=== PATIENT | male | born 1965 | race American Indian/Alaskan Native ===

== ENCOUNTER 2017-01-11 16:31 | Emergency (ER) | payer MEDICARE, OTHER ==
[~2017-01-11] VITALS: Ht 170.2 cm; Wt 77.1 kg
[~2017-01-11 16:31] MED LIST: ADULT LOW DOSE81 MG PO; ALBUTEROL2.5 MG/3 M IH; ALLEGRA180 MG PO; ALLOPURINOL100 MG PO; ALPRAZOLAM0.5 MG PO; AMLODIPINE BESY10 MG PO; AZITHROMYCIN250 MG PO; BENTYL20 MG PO; CALCIUM ACETAT667 M1 NG; CARVEDILOL3.125 MG PO; CEPHALEXIN500 MG PO; CITALOPRAM HBR20 MG PO; COREG3.125 MG PO; DICLOFENAC SOD2.5 ML OPTH; DOXYCYCLINE HY100 M3 PO; DOXYCYCLINE HY100 MG PO; DUONEB 0.5 MG-33 ML INH; FLEXERIL10 MG PO; FUROSEMIDE20 MG PO; GENTAMICIN SULFA5 ML OD; GUAIFENESIN-CO118 ML PO; HYDROCODON-ACE1 EA10 PO; IPRAT-ALBUT 0.5-3 ML INH; LASIX20 MG PO; LEVOFLOXACIN250 MG PO; LEVOTHYROXINE75 MCG PO; MEDROL4 M1 PO; NEPHRO-VITE RX1 TAB PO; NORCO 10-325 T1 EACH PO; NORCO 5-325 TA1 EACH PO; NORVASC10 MG PO; OMEPRAZOLE40 MG PO; ONDANSETRON ODT8 MG PO; OXYCODONE HCL5 MG PO; PRED FORTE1 ML OPTH; PREDNISONE20 MG PO; PRILOSEC20 MG PO; RENVELA800 MG PO; SODIUM BICARBO650 MG PO; TRIAMCINOLONE A15 G3 TOP; TUMS200 MG PO; VENTOLIN HFA18 GM INH; VITAMIN D32000 UNI1 PO; ZITHROMAX250 MG PO; ZOFRAN4 MG PO
[2017-01-11] MEDS ORDERED: MONTELUKAST SOD10 MG PO (16:40)
[2017-01-11] MEDS ORDERED: PRILOSEC OTC20 MG PO (16:41)
[2017-01-11] MEDS ORDERED: CELEXA20 MG PO (16:41)
[2017-01-11] MEDS ORDERED: RENVELA800 MG PO (16:42)
[2017-01-11] MEDS ORDERED: SODIUM BICARBO650 MG PO (16:42)
[2017-01-11] MEDS ORDERED: CHOLECALCIFEROL1 GM MISC (16:43)
--- NOTE | 2017-01-11 20:31 | EKG ---
[facility] [address] [facility] [place] [id number] Signed Normal sinus rhythm Prolonged QT Abnormal ECG Confirmed by ELLE MENDEZ MD ([id number]) on 01/11/2017 8:31:46 PM Electronically Signed By: ELLE MENDEZ MD 01/11/172030 PATIENT NAME: CAROL STANTON Electrocardiogram DATE OF : 61 PHYSICIAN: ELLE MENDEZ MD REPORT #: [id number] REPORT IS CONFIDENTIAL AND NOT TO BE RELEASED WITHOUT AUTHORIZATION
== END 2017-01-11 19:37 | disposition home or self-care (01) ==
LOC: ED 16:31
DX: R07.9 Chest pain, unspecified (principal); I12.9 Hypertensive chronic kidney disease with stage 1 through stage 4 chronic kidney disease, or unspecified chronic kidney disease; E11.22 Type 2 diabetes mellitus with diabetic chronic kidney disease; N18.9 Chronic kidney disease, unspecified; I25.10 Atherosclerotic heart disease of native coronary artery without angina pectoris; J45.909 Unspecified asthma, uncomplicated; E03.9 Hypothyroidism, unspecified; K21.9 Gastro-esophageal reflux disease without esophagitis; F17.200 Nicotine dependence, unspecified, uncomplicated; Z88.8 Allergy status to other drugs, medicaments and biological substances; Z88.1 Allergy status to other antibiotic agents; Z88.0 Allergy status to penicillin; Z79.899 Other long term (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
CPT/HCPCS: 71020; 80053; 84484; 85025; 85610; 85730; 93005; 93010; 99284

== ENCOUNTER 2017-02-11 19:13 | Emergency (ER) | payer MEDICARE, OTHER ==
[~2017-02-11] VITALS: Ht 170.2 cm; Wt 78.9 kg
[~2017-02-11 19:13] MED LIST changes: +CELEXA20 MG PO; +CHOLECALCIFEROL1 GM MISC; +MONTELUKAST SOD10 MG PO; +PRILOSEC OTC20 MG PO
== END 2017-02-11 20:47 | disposition home or self-care (01) ==
LOC: ED 19:13
DX: R21 Rash and other nonspecific skin eruption (principal); I12.0 Hypertensive chronic kidney disease with stage 5 chronic kidney disease or end stage renal disease; E11.22 Type 2 diabetes mellitus with diabetic chronic kidney disease; N18.6 End stage renal disease; I25.10 Atherosclerotic heart disease of native coronary artery without angina pectoris; J45.909 Unspecified asthma, uncomplicated; E03.9 Hypothyroidism, unspecified; K21.9 Gastro-esophageal reflux disease without esophagitis; Z99.2 Dependence on renal dialysis; Z87.891 Personal history of nicotine dependence; Z88.0 Allergy status to penicillin; Z88.8 Allergy status to other drugs, medicaments and biological substances; Z88.1 Allergy status to other antibiotic agents; Z79.899 Other long term (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
CPT/HCPCS: 99282

== ENCOUNTER 2017-02-20 20:49 | Emergency (ER) | payer MEDICARE, OTHER ==
[~2017-02-20] VITALS: Ht 170.2 cm; Wt 80.3 kg
== END 2017-02-20 22:26 | disposition home or self-care (01) ==
LOC: ED 20:49
DX: S40.011A Contusion of right shoulder, initial encounter (principal); I12.0 Hypertensive chronic kidney disease with stage 5 chronic kidney disease or end stage renal disease; N18.6 End stage renal disease; I25.10 Atherosclerotic heart disease of native coronary artery without angina pectoris; J45.909 Unspecified asthma, uncomplicated; E03.9 Hypothyroidism, unspecified; K21.9 Gastro-esophageal reflux disease without esophagitis; E11.22 Type 2 diabetes mellitus with diabetic chronic kidney disease; Z99.2 Dependence on renal dialysis; Z87.891 Personal history of nicotine dependence; Z88.0 Allergy status to penicillin; Z88.8 Allergy status to other drugs, medicaments and biological substances; Z88.1 Allergy status to other antibiotic agents; Z79.899 Other long term (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; V09.9XXA Pedestrian injured in unspecified transport accident, initial encounter
CPT/HCPCS: 73060; 99283

== ENCOUNTER 2017-02-21 04:43 | Emergency (ER) | payer MEDICARE, OTHER ==
[~2017-02-21] VITALS: Ht 170.2 cm; Wt 80.3 kg
--- NOTE | 2017-02-21 17:17 | EKG ---
[facility] [address] [facility] [place] [address] Signed Normal sinus rhythm Low voltage QRS Borderline ECG When compared with ECG of 11-JAN-2017 16:36, No significant change was found Confirmed by ELLE MENDEZ MD ([id number]) on 02/21/2017 5:16:50 PM Electronically Signed By: ELLE MENDEZ MD 02/21/17 1717 PATIENT NAME: CAROL STANTON Electrocardiogram DATE OF : 61 PHYSICIAN: ELLE MENDEZ MD REPORT #: [id number] REPORT IS CONFIDENTIAL AND NOT TO BE RELEASED WITHOUT AUTHORIZATION
== END 2017-02-21 08:30 | disposition short-term general hospital (02) ==
LOC: ED 04:43
DX: I87.1 Compression of vein (principal); E11.22 Type 2 diabetes mellitus with diabetic chronic kidney disease; I12.0 Hypertensive chronic kidney disease with stage 5 chronic kidney disease or end stage renal disease; N18.6 End stage renal disease; J45.909 Unspecified asthma, uncomplicated; E03.9 Hypothyroidism, unspecified; K21.9 Gastro-esophageal reflux disease without esophagitis; Z87.891 Personal history of nicotine dependence; Z88.0 Allergy status to penicillin; Z88.1 Allergy status to other antibiotic agents; Z88.8 Allergy status to other drugs, medicaments and biological substances; Z79.899 Other long term (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; Z79.52 Long term (current) use of systemic steroids
CPT/HCPCS: 31500; 36600; 70490; 71010; 80053; 82803; 85025; 85379; 85610; 85730; 93005; 93010; 94002; 96372; 96374; 96375; 99285; J1200; J1644; J2250; J2270; J2704

== ENCOUNTER 2017-04-26 15:18 | Emergency (ER) | payer MEDICARE, OTHER ==
[~2017-04-26] VITALS: Ht 170.2 cm; Wt 78.9 kg
[2017-04-26] MEDS ORDERED: CLEOCIN HCL300 MG PO (15:59)
[2017-04-26] MEDS ORDERED: NORCO 5-325 TA1 EACH PO (15:59)
== END 2017-04-26 17:02 | disposition home or self-care (01) ==
LOC: ED 15:18
DX: K04.7 Periapical abscess without sinus (principal); I12.0 Hypertensive chronic kidney disease with stage 5 chronic kidney disease or end stage renal disease; E11.22 Type 2 diabetes mellitus with diabetic chronic kidney disease; N18.6 End stage renal disease; Z99.2 Dependence on renal dialysis; K21.9 Gastro-esophageal reflux disease without esophagitis; J45.909 Unspecified asthma, uncomplicated; I25.10 Atherosclerotic heart disease of native coronary artery without angina pectoris; E03.9 Hypothyroidism, unspecified; Z88.0 Allergy status to penicillin; Z88.8 Allergy status to other drugs, medicaments and biological substances; Z79.899 Other long term (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
CPT/HCPCS: 96365; 96375; 99283; J1170

== ENCOUNTER 2017-08-30 19:00 | Emergency (ER) | payer MEDICARE, OTHER ==
[~2017-08-30] VITALS: Ht 170.2 cm; Wt 78.9 kg
[~2017-08-30 19:00] MED LIST changes: +CLEOCIN HCL300 MG PO
== END 2017-08-30 23:50 | disposition home or self-care (01) ==
LOC: ED 19:00
DX: H16.001 Unspecified corneal ulcer, right eye (principal); S05.01XD Injury of conjunctiva and corneal abrasion without foreign body, right eye, subsequent encounter; E11.9 Type 2 diabetes mellitus without complications; I12.0 Hypertensive chronic kidney disease with stage 5 chronic kidney disease or end stage renal disease; N18.6 End stage renal disease; E03.9 Hypothyroidism, unspecified; I25.10 Atherosclerotic heart disease of native coronary artery without angina pectoris; Z88.8 Allergy status to other drugs, medicaments and biological substances; Z88.0 Allergy status to penicillin; Z88.1 Allergy status to other antibiotic agents; Z79.899 Other long term (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; Z99.2 Dependence on renal dialysis; X58.XXXD Exposure to other specified factors, subsequent encounter
CPT/HCPCS: 99282

== ENCOUNTER 2017-10-06 23:36 | Emergency (ER) | payer MEDICARE, OTHER ==
[~2017-10-06] VITALS: Ht 170.2 cm; Wt 78.9 kg
--- OUTSIDE RECORDS SUMMARY | ~2017-10-06 | XMS | Clinical Summary ---
Demographics + + + | Address | [address] | | | [place] [address] | + + + | Home Phone | | + + + | Preferred Language | Unknown | + + + | Marital Status | Unknown | + + + | Anglican Affiliation | Unknown | + + + | Race | Unknown | + + + | Ethnic Group | Unknown | + + + Author + + + | Author | [facility] | | | and [place] | + + + | Organization | and [facility] | | | and [place] | + + + | Address | Unknown | + + + | Phone | Unavailable | + + + Care Team Providers + +------+ + | Care Regrinder Operator Name | Role | Phone | + [...] + + | Penicillins | | | 06/06/20 | | | | | | 10 [...] | 2 puffs inhaled | | | / | | Activ | | HFA) 90 [...] Monitoring Suppl | physician | | | 20 | | e | | (CONTOUR BLOOD [...] Apply a small amount | | | 09/ | | Activ | | ointment | [...] mouth twice a day | | | 10/11 | | e | | ol (ADVAIR [...] | daily for gout. | | | 20 | | e | | tablet | [...] | tablet | Daily. | | | 10/11 | | e | | | | [...] One tablet by mouth | | | 09/1 | [...] + + +-------+---------+------+------+-------+ | metformin | Take 2-/2 tablets | | | 02/22 | | Activ | | (GLUCOPHAGE) 1000 MG | by mouth every | | | 10/11 | | e | | tablet | evening with food or | | | 12 | | | | | milk for diabetes | | | | | | + + +-------+---------+------+------+-------+ | TechLite Lancets | Use as directed by | | | 02/22 | | Activ | | MISC | physician | | | 10/11 | | e | | | | [...] + + + + | Overview: JAMIL [id number] Decision | + + + +---+ | [...] | + + + + + | Hepatitis C | | | | | Screening | 3 | | | + + + + + | Diabetic Eye Exam | | | | | (Bi-Annually) | 1 | | | + + + + + | Diabetic Foot Exam | | | | | | 1 | | | + + + + + | Hemoglobin A1c Q3 | | | | | Months | 1 | | | + + + + + | Vaccine: | | | | | Dtap/Tdap/Td (1 - | 2 | | | | Tdap) | | | | + + + + + | Vaccine: | | | | | Pneumococcal 19-64 | 2 | | | | (PPSV23 only) Medium | | | | | Risk (1 of 1 - | | | | | PPSV23) | | | | + + + + + | Microalbumin | | | | | Screening | 5 | | | + + + + + | Vaccine: Influenza | | | | | (Season Ended) | 8 | | | + + + + + | COLON CANCER | | 07/03/2010 | | | SCREENING | 1 | | | | (COLONOSCOPY EVERY | | | | | 10 YEARS 50-75) | | | | + + + + + Results Not on filefrom Last 3 Months
--- OUTSIDE RECORDS SUMMARY | ~2017-10-06 | XMS | Clinical Summary ---
Demographics + + + | Address | [address] | | | [place] [address] | + + + | Home Phone | | + + + | Preferred Language | Unknown | + + + | Marital Status | | + + + | Sabianist Affiliation | [id number] | + + + | Race | Unknown | + + + | Ethnic Group | Unknown | + + + Author + + + | Author | whodoyou | + + + | Organization | [facility] | + + + | Address [...] Team Providers + +------+ + | Care Continuous Improvement Analyst Name | Role | Phone | + [...] | | | | | | dialysis ([facility]) | | | | | | [...] | | | | | | dialysis ([facility]) | | | | | | [...] 2 (two) times | tablet | | 07/13 | | e | | | daily with meals. | | | 18 | | | + + + +---------+------+------+-------+ Active Problems + + + | Problem | Noted Date | + + + | 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HCC) | 07/22/2017 | + + + | Psoriasis-like skin disease | 02/19/2017 | + + + | Eczema of both upper extremities | 02/16/2017 | + + + | Chest pain, unspecified | 10/08/2016 | + + + | S/P pericardiocentesis | 09/12/2016 | + + + | Hyponatremia | 09/08/2016 | + + + | Polysubstance abuse | 04/28/2016 | + + + | Chronic steroid use | 04/28/2016 | + + + | Steroid-induced hyperglycemia [...] Date | + + + + | Hyperkalemia [...] 7 | + + + + | Gram-positive cocci bacteremia | 03/18/20 | | | | 14 | 7 [...] asthma with exacerbation (HCC) | 10/28/19 | | | | 14 [...] ready for discharge from the | | longterm facility next week. | + + + [...] | +--------+ + + + + | 10/05/ | Emergency | | Inocencio Burden | ESRD on hemodialysis | | 2017 | | | DO Onelia | ([facility]) (Primary Dx); | | | | | | Cellulitis of right | | | | | | upper extremity | +--------+ + + + + | 08/28/ | Documentati | | Jayy Christianson MD | Other (July | on Only | | | 2018-[facility] Provider | | | | | | [facility] Dialysis | | | | | | Note) | +--------+ + + + + | 07/29/ | Documentati | | Jayy Christianson MD | Other (June | | 2017 | on Only | | | 2018-[facility] Provider | | | | | | Rounding Dialysis | | | | | | Note) | +--------+ + + + + | 07/22/ | Hospital | | Huan Martínez, | MRSA infection | | 2018 - | Encounter | | DO Vaishnavi Edward, | (Primary Dx); | | | | | Albino Traylor, | Complication of AV | | 07/25/ | | | MD | dialysis fistula, | | 2017 | | | | initial encounter; | | | | | | End stage renal | | | | | | failure on dialysis | | | | | | ([facility]); Infection of | | | | | | arteriovenous | | | | | | fistula, subsequent | | | | | | encounter | +--------+ + + + + +---+ + | | Discharge | | | Summaries | | | - Evelia, | | | MD Albino | | | - | | | 07/25/2017 | | | 9:18 AM | | | PST | | | Formatting | | | of this | | | note may be | | | different | | | from the | | | original.[facility]: | | | Hospitalist | | | Discharge | | | SummaryDate | | | of | | | Admission: | | | | | | 07/22/2017Da | | | te of | | | Discharge: | | | 07/25/2017 | | | Discharge | | | Provider: | | | ALBINO T | | | DERAY, | | | MDTreatment | | | Team: | | | Consulting | | | Physician: | | | Jayy H | | | Akoum, | | | MDAdmitting | | | Provider: | | | Vaishnavi | | | Edward, | | | MDDischarge | | | Diagnoses: | | | | | | Principal | | | Problem: | | | AV fistula | | | infection | | | (HCC)Active | | | Problems: | | | Metabolic | | | acidosis | | | Hypothyroid | | | ism | | | Diabetes | | | mellitus | | | with ESRD | | | (end-stage | | | renal | | | disease) | | | HTN | | | (hypertensi | | | on) ESRD | | | (end stage | | | renal | | | disease) on | | | dialysis | | | Hyponatremi | | | a | | | AsthmaBRIEF | | | HISTORY OF | | | | | | PRESENTATIO | | | N/HOSPITAL | | | COURSE: | | | Enrique G | | | Tariq is a 52 | | | y.o. male | | | with DM2, | | | HTN, | | | hypothyroid | | | , asthma | | | and ESRD on | | | HD who | | | presented | | | with | | | possible | | | AVF site | | | infection. | | | He | | | remained | | | afebrile | | | and denied | | | and pain on | | | the site | | | however | | | during | | | cannulation | | | of his | | | AVF, the | | | nurse noted | | | pus coming | | | out. | | | Apparently | | | wound | | | culture | | | came back | | | heavy | | | growth MRSA | | | positive. | | | He was | | | started on | | | vanco dosed | | | per | | | dialysis. | | | [place] of the | | | area was | | | negative | | | for fluid | | | collection. | | | Dr. Meyer | | | was | | | consulted | | | and | | | suggested | | | to continue | | | | | | antibiotic. | | | No | | | surgical | | | interventio | | | n needed. | | | He had | | | metabolic | | | acidosis | | | which | | | improved | | | with HD. | | | He received | | | a total of | | | 3 doses of | | | vanco | | | during this | | | stay. He | | | was advised | | | to comply | | | with | | | outpatient | | | HD and | | | vanco | | | dosing. | | | Dr. Christianson | | | already | | | arranged | | | the vanco | | | orders. I | | | had to | | | increase | | | his coreg | | | to 6.25 BID | | | for better | | | BP | | | control. | | | He remained | | | stable and | | | improved. | | | The rest | | | of his | | | hospital | | | stay was | | | unremarkabl | | | e. | | | Prescriptio | | | ns Prior to | | | Admission | | | Medication | | | Sig | | | Dispense | | | Refill Last | | | Dose | | | | | | acetaminoph | | | en | | | (TYLENOL) | | | 325 MG | | | tablet Take | | | 650 mg by | | | mouth every | | | 6 (six) | | | hours as | | | needed. | | | Indications | | | : Pain | | | Past Week | | | at Unknown | | | time | | | albuterol | | | (PROVENTIL | | | HFA) 108 | | | (90 BASE) | | | MCG/ACT | | | inhaler | | | Inhale 2 | | | puffs into | | | the lungs | | | every 4 | | | (four) | | | hours as | | | needed for | | | Wheezing. | | | (Patient | | | taking | | | differently | | | : Inhale 2 | | | puffs into | | | the lungs | | | every 4 | | | (four) | | | hours as | | | needed for | | | Wheezing. | | | Took last | | | night) 1 | | | Inhaler 1 | | | Taking | | | | | | allopurinol | | | (ZYLOPRIM) | | | 100 MG | | | tablet Take | | | 100 mg by | | | mouth | | | daily. | | | Indications | | | : Primary | | | Gout | | | 02/14/2017 | | | at Unknown | | | time | | | | | | amLODIPine | | | (NORVASC) | | | 10 MG | | | tablet Take | | | 10 mg by | | | mouth | | | daily. | | | 02/14/2017 | | | at Unknown | | | time | | | b | | | complex-vit | | | haji | | | c-folic | | | acid | | | (NEPHRO-VIT | | | E) 0.8 MG | | | TABS tablet | | | Take 1 | | | tablet by | | | mouth | | | daily. 30 | | | tablet 11 | | | 02/15/2017 | | | at Unknown | | | time | | | | | | betamethaso | | | ne valerate | | | (VALISONE) | | | 0.1 % | | | cream Apply | | | topically | | | 2 (two) | | | times daily | | | for 7 | | | days. 30 g | | | 0 | | | | | | budesonide- | | | formoterol | | | (SYMBICORT) | | | 160-4.5 | | | MCG/ACT | | | inhaler | | | Inhale 2 | | | puffs into | | | the lungs 2 | | | (two) | | | times | | | daily. 2 | | | each 0 | | | | | | Cholecalcif | | | angelina 2000 | | | UNITS TABS | | | Take 1 | | | tablet by | | | mouth | | | daily. | | | 02/15/2017 | | | at Unknown | | | time | | | | | | fluticasone | | | -salmeterol | | | (ADVAIR | | | DISKUS) | | | 250-50 | | | MCG/DOSE | | | Inhale 1 | | | puff into | | | the lungs 2 | | | (two) | | | times | | | daily. 60 | | | each 0 | | | Unknown at | | | Unknown | | | time | | | | | | HYDROcodone | | | -acetaminop | | | hen (NORCO) | | | 5-325 MG | | | per tablet | | | | | | 10/07/2016 | | | at Unknown | | | time | | | | | | levothyroxi | | | ne | | | (SYNTHROID) | | | 75 MCG | | | tablet Take | | | 75 mcg by | | | mouth every | | | morning | | | before | | | breakfast. | | | Indications | | | : | | | Underactive | | | Thyroid | | | 02/15/2017 | | | at Unknown | | | time | | | | | | montelukast | | | | | | (SINGULAIR) | | | 10 MG | | | tablet Take | | | 1 tablet | | | by mouth | | | nightly. 30 | | | tablet 0 | | | Taking | | | | | | ondansetron | | | | | | (ZOFRAN-ODT | | | ) 8 MG | | | disintegrat | | | ing tablet | | | | | | 02/15/2017 | | | at Unknown | | | time | | | sevelamer | | | (RENVELA) | | | 800 MG | | | tablet take | | | 3 tablets | | | by mouth | | | three times | | | a day WITH | | | MEALS AND | | | 1 TABLET | | | WITH SNACKS | | | 300 tablet | | | 5 | | | 02/15/2017 | | | at Unknown | | | time | | | sodium | | | bicarbonate | | | 650 MG | | | tablet Take | | | 1,300 mg | | | by mouth 2 | | | (two) times | | | daily. | | | 02/15/2017 | | | at Unknown | | | time | | | DISCHARGE | | | EXAMVital | | | Signs:Vital | | | s: | | | 07/24/17 | | | 2219 | | | 07/24/17 | | | 2257 | | | 07/25/17 | | | 0536 | | | 07/25/17 | | | 0750 BP: | | | 158/87 | | | 150/68 | | | 137/73 BP | | | Location: | | | Left | | | forearm | | | Left | | | forearm | | | Left | | | forearm | | | Pulse: 86 | | | 81 80 Resp: | | | 18 18 19 | | | Temp: 98.3 | | | F (36.8 | | | C) 97.7 | | | F (36.5 | | | C) 97.8 | | | F (36.6 | | | C) | | | TempSrc: | | | Oral Oral | | | Oral SpO2: | | | 99% 100% | | | 99% Weight: | | | 79.6 kg | | | (175 lb 8 | | | oz) | | | Height: | | | Physical | | | ExamGeneral | | | | | | appearance: | | | alert, | | | appears | | | stated age | | | and | | | cooperative | | | . Fatigue | | | looking but | | | no | | | distress. | | | Interactive | | | .Head: | | | Normocephal | | | ic, without | | | obvious | | | abnormality | | | , | | | atraumaticN | | | gray: no | | | adenopathy, | | | no carotid | | | bruit, no | | | JVD, | | | supple, | | | symmetrical | | | , trachea | | | midline and | | | thyroid | | | not | | | enlarged, | | | symmetric, | | | no | | | tenderness/ | | | mass/nodule | | | sLungs: | | | clear to | | | auscultatio | | | n | | | bilaterally | | | Heart: | | | regular | | | rate and | | | rhythm, S1, | | | S2 normal, | | | no murmur, | | | click, rub | | | or | | | gallopAbdom | | | en: soft, | | | non-tender; | | | bowel | | | sounds | | | normal; no | | | masses, no | | | | | | organomegal | | | yMusculoske | | | letal: | | | There is no | | | redness, | | | warmth, or | | | swelling of | | | the | | | joints. | | | Limited | | | range of | | | motion | | | noted. | | | Motor | | | strength is | | | 5 out of 5 | | | all | | | extremities | | | | | | bilaterally | | | . Tone is | | | normal.Extr | | | emities: | | | extremities | | | normal, | | | atraumatic, | | | no | | | cyanosis or | | | | | | edemaPulses | | | : 2+ and | | | symmetricSk | | | in: Skin | | | color, | | | texture, | | | turgor | | | normal. | | | Firm lump | | | smaller in | | | size with | | | small dried | | | up | | | crusting on | | | the right | | | antecubital | | | which is | | | non tender. | | | Palpable | | | thrill | | | present.Lym | | | ph nodes: | | | Cervical, | | | supraclavic | | | ular, and | | | axillary | | | nodes | | | normal. DA | | | TA, | | | personally | | | reviewedRec | | | ent [facility] | | | | | | | | | 5 | | | | | | 0 | | | | | | 1 WBC 5.65 | | | 6.45 7.21 | | | HGB 13.1* | | | 12.7* 12.8* | | | HCT 39.1 | | | 37.0* 37.9* | | | PLT 151 | | | 184 198 | | | NEUTOPHILPC | | | T 55.56 | | | 66.67 73.75 | | | MONOPCT | | | 12.22 10.22 | | | 9.13 | | | Recent | | | [facility] | | | | | | 5 | | | 01/31/05369 | | | 0 | | | 50 | | | 1 | | | | | | 0 NA 136 | | | 136 130* | | | 129* K 3.9 | | | 3.8 3.8 3.9 | | | CL 98* 98* | | | 99 97* CO2 | | | 29 29 9* | | | 9* BUN 25 | | | 41* 96* 90* | | | CREATININE | | | 5.5* 7.4* | | | 12.7* 12* | | | PROT -- | | | -- -- | | | 7.5 BILITOT | | | -- -- | | | -- 0.6 | | | ALT -- | | | -- -- 56 | | | AST -- | | | -- -- | | | 48* | | | Phosphorus: | | | Lab | | | Results | | | Component | | | Value Date | | | PHOS 3.7 | | | 07/25/2017 | | | Recent | | | [facility] | | | | | | 0 | | | | | | 1 MG 2.4 | | | 3.1* | | | Radiology, | | | personally | | | reviewedUs | | | Upper | | | Extremity | | | Right Soft | | | TissueResul | | | t Date: | | | . | | | Mild edema | | | | | | surrounding | | | the | | | ectatic | | | fistula/gra | | | ft | | | Electronica | | | lly signed | | | by Giovany | | | S Nupur, | | | MD on | | | 07/22/2017 | | | 9:57 | | | PMPLAN-disc | | | harge | | | home.-follo | | | w | | | medications | | | as | | | outlined | | | below.-foll | | | ow up with | | | providers | | | as | | | indicated.D | | | isposition: | | | | | | HomeConditi | | | on: | | | StableCode | | | Status: | | | Full | | | CodeDischar | | | ge | | | Instruction | | | sCall MD | | | for: | | | Extreme | | | Fatigue | | | Call MD | | | for: | | | Severe | | | Uncontrolle | | | d Pain Call | | | MD for: | | | Redness, | | | Tenderness, | | | or Signs | | | of | | | Infection | | | (Pain, | | | Swelling, | | | Redness, | | | Odor or | | | Green/Yello | | | w Discharge | | | Around | | | Incision | | | Site) | | | Follow | | | up:Jayy H | | | Akoum, | | | [id number] | | | [address] | | | [place] | | | [place] | | | [place] | | | [phone] | | [phone] | | | ule an | | | appointment | | | as soon as | | | possible | | | for a visit | | | in 1 | | | weekpost | | | hospital | | | follow | | | [facility] | | | [place], | | | [id number] | | | [place] | | | d | | | [address] | | | n [place] | | | [phone] | | | [phone] | | | Medication | | | List | | | CHANGE how | | | you take | | | these | | | medications | | | albuterol | | | 108 (90 | | | Base) | | | MCG/ACT | | | inhalerQTY: | | | 1 | | | InhalerRefi | | | lls: | | | 1Commonly | | | known as: | | | PROVENTIL | | | HFAInhale 2 | | | puffs into | | | the lungs | | | every 4 | | | (four) | | | hours as | | | needed for | | | Wheezing.Wh | | | at changed: | | | | | | additional | | | instruction | | | s | | | carvedilol | | | 3.125 MG | | | tabletQTY: | | | 60 | | | tabletRefil | | | ls: | | | 0Commonly | | | known as: | | | COREGTake 2 | | | tablets by | | | mouth 2 | | | (two) times | | | daily with | | | meals.What | | | changed: | | | how much to | | | take | | | CONTINUE | | | taking | | | these | | | medications | | | | | | acetaminoph | | | en 325 MG | | | tabletRefil | | | ls: | | | 0Commonly | | | known as: | | | TYLENOL | | | allopurinol | | | 100 MG | | | tabletRefil | | | ls: | | | 0Commonly | | | known as: | | | ZYLOPRIM | | | amLODIPine | | | 10 MG | | | tabletRefil | | | ls: | | | 0Commonly | | | known as: | | | NORVASC b | | | complex-vit | | | haji | | | c-folic | | | acid 0.8 MG | | | Tabs | | | tabletQTY: | | | 30 | | | tabletRefil | | | ls: 11For | | | diagnoses: | | | ESRD (end | | | stage renal | | | disease) | | | on dialysis | | | (HCC)Take | | | 1 tablet by | | | mouth | | | daily. | | | betamethaso | | | ne valerate | | | 0.1 % | | | creamQTY: | | | 30 | | | gRefills: | | | 0Commonly | | | known as: | | | VALISONEApp | | | ly | | | topically 2 | | | (two) | | | times daily | | | for 7 | | | days. | | | budesonide- | | | formoterol | | | 160-4.5 | | | MCG/ACT | | | inhalerQTY: | | | 2 | | | eachRefills | | | : | | | 0Commonly | | | known as: | | | SYMBICORTIn | | | major 2 | | | puffs into | | | the lungs 2 | | | (two) | | | times | | | daily. | | | Cholecalcif | | | angelina 2000 | | | units | | | TabsRefills | | | : 0 | | | fluticasone | | | -salmeterol | | | 250-50 | | | MCG/DOSEQTY | | | : 60 | | | eachRefills | | | : | | | 0Commonly | | | known as: | | | ADVAIR | | | DISKUSInhal | | | e 1 puff | | | into the | | | lungs 2 | | | (two) times | | | daily. | | | HYDROcodone | | | -acetaminop | | | hen 5-325 | | | MG per | | | tabletRefil | | | ls: | | | 0Commonly | | | known as: | | | NORCO | | | levothyroxi | | | ne 75 MCG | | | tabletRefil | | | ls: | | | 0Commonly | | | known as: | | | SYNTHROID | | | montelukast | | | 10 MG | | | tabletQTY: | | | 30 | | | tabletRefil | | | ls: | | | 0Commonly | | | known as: | | | SINGULAIRTa | | | ke 1 tablet | | | by mouth | | | nightly. | | | ondansetron | | | 8 MG | | | disintegrat | | | ing | | | tabletRefil | | | ls: | | | 0Commonly | | | known as: | | | ZOFRAN-ODTN | | | otes to | | | patient: | | | Resume home | | | schedule | | | sevelamer | | | 800 MG | | | tabletQTY: | | | 300 | | | tabletRefil | | | ls: 5For | | | diagnoses: | | | ESRD (end | | | stage renal | | | disease) | | | on dialysis | | | | | | (HCC)Common | | | ly known | | | as: | | | RENVELAtake | | | 3 tablets | | | by mouth | | | three times | | | a day WITH | | | MEALS AND | | | 1 TABLET | | | WITH SNACKS | | | sodium | | | bicarbonate | | | 650 MG | | | tabletRefil | | | ls: 0 You | | | might also | | | be taking | | | other | | | medications | | | not listed | | | above. If | | | you have | | | questions | | | about any | | | of your | | | other | | | medications | | | , talk to | | | the person | | | who | | | prescribed | | | them or | | | your | | | Primary | | | Care | | | Provider. | | | Where to | | | Get Your | | | Medications | | | These | | | medications | | | [facility] | [address] - | | | [place], | | | [place] - [address] | [address], | | | [place] | | | [place] | | | [address] | | | Phone: | | | [phone] | | | 5 | | | carvedilol | | | 3.125 MG | | | tablet | | | Discharge | | | took 35 | | | minutes, to | | | include | | | final | | | examination | | | , | | | discussion | | | of | | | admission, | | | and | | | preparation | | | of | | | prescriptio | | | ns, | | | instruction | | | s for | | | on-going | | | care, | | | follow-up | | | and | | | documentati | | | on of | | | discharge | | | summary.Dic | | | tation and | | | transcripti | | | on or | | | software, | | | Dragon, | | | used which | | | may contain | | | error for | | | similar | | | sounding | | | words even | | | after | | | review. | | | Personal | | | communicati | | | on | | | requested | | | for any | | | clarificati | | | on. ALBINO | | | T DERAY, | | | MD | | | :18 AM | +---+ + from Last 3 Months Family History + + +------+ + | [...] + | Mother | | | from [place] | | | | (Age | | [...] + + + | Blood Pressure | 190/88 | 10/05/2017 6:10 PM PDT | + + + + | Pulse | 80 | 10/05/2017 6:10 PM PDT | + + + + | Temperature | 36.3 C (97.4 F) | 10/05/2017 6:10 PM PDT | + + + + | Respiratory Rate | 16 | 10/05/2017 6:10 PM PDT | + + + + | Oxygen Saturation | 99% | 10/05/2017 6:10 PM PDT | + + + + | Inhaled Oxygen | - | - | | Concentration | | | + + + + | Weight | 82.2 kg (181 lb 3.5 | 10/05/2017 12:42 PM PDT | | | oz) | | + + + + | Height | 170.2 cm (5' 7") | 07/22/2017 9:12 PM PST | + + + + | Body Mass Index | 28.38 | 10/05/2017 12:42 PM PDT | + + + + Plan [...] + + | Hemoglobin A1c | | 02/17/2017, 10/09/2016, | | | | 8 | 09/13/2016, Additional history | | | | | [...] Stent | Right: | | | | [id number] | | 40-09/11/2016Implanted: | | | | | | / | | 09/11/2016 by Jimenez Garnica, | | [employer] | | | | /[id number] | | PhD (Quantity not on | | vian | | | | 669 | | file) | | | | | | | + +-------+--------+ +--------+--------+--------+ | Zilver 14 X | Stent | Right: | | | | [id number] | | 60-09/11/2016Implanted: | | | | | | / | | 09/11/2016 by Jimenez Garnica, | | [employer] | | | | /[id number] | | PhD (Quantity not on | | vian | | | | 524 | | file) | | | | | | | + +-------+--------+ +--------+--------+--------+ | Hemodialysis Catheter 12x20 | | Left: | | | 10/05/ | [id number] | | Curved - Sn/AImplanted: Qty: | | Neck | | | 2013 | [id number] | | 1 on 07/07/2012 by Oskar Meyer | | | | | | /N/A | | Y, | | | | | | / | | | | | | | | 5X | + +-------+--------+ +--------+--------+--------+ | Catheter Hemodialysis Alpha | | Left: | | | 02/22/ | [id number] | | Pre [employer] Manager Std | | Neck | | | 2012 | 0 | | Hemosplit 14.5 24cm - | | | | | | /[id number] | | [id number]: Qty: 1 on | | | | | | 90 | | 07/11/2012 by Oskar Meyer MD | | | | | | /[id number] | | | | | | | | 631 | + +-------+--------+ +--------+--------+--------+ Procedures + +--------+ + + + | Procedure Name | Priori | Date/Time | Associated Diagnosis | Comments | | | ty | | | | + +--------+ + + + | HEMODIALYSIS | Today | 07/24/2017 | | Results for this | | INPATIENT | | 4:18 PM | | procedure are in the | | | | PST | | results section. | + +--------+ + + + from Last 3 Months Results upper extremity venous right (10/05/2017 2:52 PM) + + + | Specimen | Performing Laboratory | + + + | | [facility] [id number] [place] [address] | + + + + + | Impressions | + + | 1. No evidence of DVT. | | 3:00 PM | + + + + | Narrative | + + | ENRIQUE POTTER 1965 US UPPER EXTREMITY VENOUS DOPPLER RIGHT 10/05/2017 2:52 PM | | INDICATION: Arm pain COMPARISON: None TECHNIQUE: Right upper extremity venous | | duplex, grayscale, color-flow and spectral analysis FINDINGS: The internal jugular | | vein is patent. There is normal color flow of the internal jugular and subclavian veins. | | Normal augmentation is present along the proximal deep venous system. The cephalic vein | | is normally compressible. Mid basilic vein is normal. Examination is limited due to | | patient soft tissue hardness. | + + + + | Procedure Note | + + | Khalif Palm In - 10/05/2017 3:05 PM PDT ENRIQUE G [id number] UPPER EXTREMITY | | VENOUS DOPPLER RIGHT10/05/2017 2:52 PMINDICATION: Arm painCOMPARISON: NoneTECHNIQUE: | | Right upper extremity venous duplex, grayscale, color-flow and spectral | | analysisFINDINGS: The internal jugular vein is patent. There is normal color flow of the | | internal jugular and subclavian veins. Normal augmentation is present along the | | proximal deep venous system. The cephalic vein is normally compressible. Mid basilic | | vein is normal.Examination is limited due to patient soft tissue hardness.IMPRESSION:1. | | No evidence of DVT. | | | |TECHNIQUE: Right upper extremity venous duplex, grayscale, color-flow and spectral analysis | | | |FINDINGS: The internal jugular vein is patent. There is normal color flow of the internal j ugular and subclavian veins. Normal augmentation is present along the proximal deep venous s ystem. The cephalic vein is | |normally compressible. Mid basilic vein is normal. | | | |Examination is limited due to patient soft tissue hardness. | | | |IMPRESSION: | |1. No evidence of DVT. | | | | | + + Cardiac Panel (10/05/2017 2:02 PM) + + +------ + | Component | Value | Ref R chanelle | + + +------ + | WBC | 7.23 | 3.80 - 11.00 K/uL | + + +------ + | RBC | 3.92 (L) | 4.20 - 5.70 M/uL | + + +------ + | HGB | 11.1 (L) | 13.2 - 17.0 g/dL | + + +------ + | HCT | 34.5 (L) | 39.0 - 50.0 % | + + +------ + | MCV | 87.9 | 80.0 - 100.0 fl | + + +------ + | MCH | 28.3 | 27.0 - 34.0 pg | + + +------ + | MCHC | 32.2 | 32.0 - 35.5 g/dL | + + +------ + | RDW SD | 52.5 | 37 - 53 fl | + + +------ + | PLT | 245 | 150 - 400 K/uL | + + +------ + | MPV | 7.1 | fl | + + +------ + | DIFF TYPE | AUTOMATED | | + + +------ + | NEUTROPHILS | 72.19 | % | + + +------ + | LYMPHOCYTES | 7.35 | % | + + +------ + | MONOCYTES | 7.16 | % | + + +------ + | EOSINOPHILS | 12.79 | % | + + +------ + | BASOPHILS | 0.51 | % | + + +------ + | NEUTROPHILS ABS | 5.22 | 1.90 - 7.40 K/uL | + + +------ + | LYMPHOCYTES ABS | 0.53 (L) | 1.00 - 3.90 K/uL | + + +------ + | MONOCYTES ABS | 0.52 | 0.00 - 0.80 K/uL | + + +------ + | EOSINOPHILS ABS | 0.92 (H) | 0.00 - 0.50 K/uL | + + +------ + | BASOPHILS ABS | 0.04 | 0.00 - 0.10 K/uL | + + +------ + | SODIUM | 133 (L) | 135 - 145 mmol/L | + + +------ + | POTASSIUM | 4.8 | 3.5 - 4.9 mmol/L | + + +------ + | CHLORIDE | 97 (L) | 99 - 109 mmol/L | + + +------ + | CO2 | 19 (L) | 23 - 32 mmol/L | + + +------ + | ANION GAP AGAP | 22 (H) | 5 - 2 0 mmol/L | + + +------ + | GLUCOSE | 134 (H) | 65 - 99 mg/dL | + + +------ + | BUN | 71 (H) | 8 - 2 5 mg/dL | + + +------ + | CREATININE | 15 (H) | 0.70 - 1.30 mg/dL | + + +------ + | BUN/CREAT | 5 | | + + +------ + | CALCIUM | 7.5 (L) | 8.5 - 10.5 mg/dL | + + +------ + | TOTAL PROTEIN | 7.2 | 6.3 - 8.2 g/dL | + + +------ + | Albumin | 3.2 (L) | 3.6 - 5.0 g/dL | + + +------ + | GLOBULIN | 4.0 | 1.3 - 4.9 g/dL | + + +------ + | A/G | 0.8 (L) | 1.0 - 2.4 | + + +------ + | TBIL | 0.7 | 0.1 - 1.5 mg/dL | + + +------ + | ALK PHOS | 82 | 35 - 115 U/L | + + +------ + | AST | 22 | 10 - 45 U/L | + + +------ + | ALT | 30 | 10 - 65 U/L | + + +------ + | EGFR | 4 (L)Comment: GFR <60: CHRONIC KIDNEY | >60 m L/min/1.73m2 | | | DISEASE, IF FOUND OVER A 3 MONTH PERIOD.GFR | | | | <15: KIDNEY FAILURE.FOR AMERICANS, | | | | MULTIPLY THE CALCULATED GFR BY 1.210. | | | |FOR AMERICANS, MULTIPLY THE CALCULATED GFR BY 1.210. | | | | | | + + +------ + | CPK | 173 | 55 - 400 U/L | + + +------ + | INR | 1.0Comment: REFERENCE RANGE:0.9 - | | | | 1.2 NON-ANTICOAGULATED2.0 - 3.0 ALL | | | | OTHER THERAPEUTIC INDICATIONS2.5 - 3.5 | | | | MECHANICAL HEART VALVES, RECURRENT OR | | | | SYSTEMIC EMBOLISM | | | |2.5 - 3.5 MECHANICAL HEART VALVES, RECURRENT OR SYSTEMIC EMBOLISM | | | | | | + + +------ + | APTT | 24 | 23 - 32 seconds | + + +------ + | MMB | 8.1 (H) | 0.5 - 3.6 ng/mL | + + +------ + | CK-MB Index | 4.7Comment: CK INDEX | | | | INTERPRETATION: MMB | | | | ng/mL & Relative | | | | IndexNon-AMI < or = | | | | 5.0 NAGray | | | | Zone >5.0 < or | | | | = 4.0AMI | | | | >5.0 >4.0Testing | | | | performed at [facility] [place] [address];[place], [place] | | | | [address] | | | | | | + + +------ + + + + | Specimen | Performing Laboratory | + + + | | [facility] [address] [place] [address] | + + + Troponin I, Lab (10/05/2017 2:02 PM) + + + + | Component | Value | Ref Range | + + + + | TROPONIN I | <0.020Comment: 0.00 to 0.10 | 0.00 - 0.10 ng/mL | | | CONSISTENT WITH NORMAL POPULATION0.11 to | | | | 0.60 CONSISTENT WITH INCREASED RISK FOR | | | | ADVERSE OUTCOMES> 0.60 | | | | CONSISTENT WITH WHO CRITERIA FOR ACUTE AK | | | | Testing performed at [facility];[address] | | | | [facility] [address] | | | | | | | |Testing performed at [facility];[address] [place] [address];[place] [address] | | | | | | + + + + + + + | Specimen | Performing Laboratory | + + + | Blood | [facility] [address] [place] [address] | + + + ED INFORMATION EXCHANGE (10/05/2017 12:35 PM)Only the most recent of 2 results within the period is included. + + + | Specimen | Performing Laboratory | + + + | | ED INFORMATION EXCHANGE | + + + + + | Narrative | + + | [id number] [id number] This patient has registered at the [facility] Emergency Department For more information visit: | | [email or web address] Security | | Events No recent Security Events currently on file ED Care Guidelines There are | | currently no ED Care Guidelines in DECLAN for this patient. Please check your facility's | | medical records system. 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 Visit Count (12 mo.) Facility Visits Low Acuity [facility] | [facility] 4 0 [facility] 8 0 Total 12 0 Note: Visits indicate | | total known visits. Medicaid Low Acuity Dx are the number of primary diagnoses on the | | Medicaid's Low Acuity dx list. Recent Inpatient Visit Summary Admit Date | | Facility City State Type Major Type Diagnoses or Chief Complaint Jul 22, 2017 [facility] | | [facility] Inpatient Referral Skin | | Complaint Unspecified complication of cardiac and vascular prosthetic device, | | implant and graft, initial encounter Methicillin resistant Staphylococcus aureus | | infection, unspecified site End stage renal disease Dependence on renal | | dialysis Infection and inflammatory reaction due to other cardiac and vascular | | devices, implants and grafts, subsequent encounter PDMP Report PDMP query | | found no report. Care Providers DECLAN has no care providers on record at this time. | | Known Aliases No known aliases. Criteria met 10 in 12 The above | | information is provided for the sole purpose of patient treatment. Use of this | | information beyond the terms of Data Sharing Memorandum of Understanding and License | | Agreement is prohibited. In certain cases not all visits may be represented. Consult | | the aforementioned facilities for additional information. 2018 [employer] | | [employer] - [place], [place] - [email or web address] | + + + + | Procedure Note | + + | Interface, Lab - 10/05/2017 12:36 PM PDT Formatting of this note may be different | | from the original.[id number] [id number] patient has registered at the [facility] | | [facility] Emergency Department For more information visit: | | [email or web address] Security | | EventsNo recent Security Events currently on fileED Care GuidelinesThere are currently | | no ED Care Guidelines in DECLAN for this patient. Please check your facility's medical | | records system.Recent Emergency Department Visit SummaryAdmit Date Facility City State | | Type Major Type Diagnoses or Chief Complaint Oct 05, 2017 [facility] [place] | | [facility] 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 Visit Count (12 mo.)Facility Visits Low Acuity [facility] 4 0 | | [facility] 8 0 Total 12 0 Note: Visits indicate total known visits. | | Medicaid Low Acuity Dx are the number of primary diagnoses on the Medicaid's Low Acuity | | dx list. Recent Inpatient Visit SummaryAdmit Date Facility [facility] State Type Major Type | | Diagnoses or Chief Complaint Jul 22, 2017 [facility] General | | Medicine Inpatient Referral Skin Complaint Unspecified complication of cardiac | | and vascular prosthetic device, implant and graft, initial encounter Methicillin | | resistant Staphylococcus aureus infection, unspecified site End stage renal disease | | Dependence on renal dialysis Infection and inflammatory reaction due to other | | cardiac and vascular devices, implants and grafts, subsequent encounter PDMP ReportPDMP | | query found no report.[facility] has no care providers on record at this time. | | Known AliasesNo known aliases. Criteria met 10 in 12The above information is provided | | for the sole purpose of patient treatment. Use of this information beyond the terms of | | Data Sharing Memorandum of Understanding and License Agreement is prohibited. In certain | | cases not all visits may be represented. Consult the aforementioned facilities for | | additional information. 2018 [employer] - [place], [place] | | - [email or web address] | |[facility] 4 0 | |[facility] 8 0 | |Total 12 0 | |Note: Visits indicate total known visits. Medicaid Low Acuity Dx are the number of primary diagnoses on the Medicaid's Low Acuity dx list. | | | |Recent Inpatient Visit Summary | |Admit Date Facility City State Type Major Type Diagnoses or Chief Complaint | |Jul 22, 2017 [facility] [place] General Medicine Inpatient | | Referral | | Skin Complaint | | Unspecified complication of cardiac and vascular prosthetic device, implant and graft, i nitial encounter | | Methicillin resistant Staphylococcus aureus infection, unspecified site | | End stage renal disease | | Dependence on renal dialysis | | Infection and inflammatory reaction due to other cardiac and vascular devices, implants and grafts, subsequent encounter | | | | | | | |PDMP Report | |PDMP query found no report. | | | |Care Providers | |DECLAN has no care providers on record at this time. | |Known Aliases | |No known aliases. | |Criteria met | | | | 10 in 12 | | | |The above information is provided for the sole purpose of patient treatment. Use of this in formation beyond the terms of Data Sharing Memorandum of Understanding and License Agreement is prohibited. In | |certain cases not all visits may be represented. Consult the aforementioned facilities for additional information. | |2018 [employer] - [place], [place] - [email or web address] | + + POCT glucose (07/25/2017 11:14 AM)Only the most recent of 10 results within the time period is included. + + + + | Component | Value | Ref Range | + + + + | GLUCOSE,POC SCREEN | 117 (H)Comment: Testing performed at | 65 - 99 mg/dL | | | [facility];[address];[place] [address] | | + + + + + + + | Specimen | Performing Laboratory | + + + | | [facility] [address] [facility] [place] [address] | + + + CBC w/auto diff (reflex to manual) (07/25/2017 5:45 AM)Only the most recent of 4 results w agueda the time period is included. + + + + | Component | Value | Ref Range | + + + + | WBC | 5.65 | 3.80 - 11.00 K/uL | + + + + | RBC | 4.38 | 4.20 - 5.70 M/uL | + + + + | HGB | 13.1 (L) | 13.2 - 17.0 g/dL | + + + + | HCT | 39.1 | 39.0 - 50.0 % | + + + + | MCV | 89.3 | 80.0 - 100.0 fl | + + + + | MCH | 30.0 | 27.0 - 34.0 pg | + + + + | MCHC | 33.6 | 32.0 - 35.5 g/dL | + + + + | RDW SD | 54.7 (H) | 37 - 53 fl | + + + + | PLT | 151 | 150 - 400 K/uL | + + + + | MPV | 7.1 | fl | + + + + | DIFF TYPE | AUTOMATED | | + + + + | NEUTROPHILS | 55.56 | % | + + + + | LYMPHOCYTES | 15.72 | % | + + + + | MONOCYTES | 12.22 | % | + + + + | EOSINOPHILS | 15.37 | % | + + + + | BASOPHILS | 1.13 | % | + + + + | NEUTROPHILS ABS | 3.14 | 1.90 - 7.40 K/uL | + + + + | LYMPHOCYTES ABS | 0.89 (L) | 1.00 - 3.90 K/uL | + + + + | MONOCYTES ABS | 0.69 | 0.00 - 0.80 K/uL | + + + + | EOSINOPHILS ABS | 0.87 (H) | 0.00 - 0.50 K/uL | + + + + | BASOPHILS ABS | 0.06Comment: Testing performed at [facility], [address] | 0.00 - 0.10 K/uL | | | [place] [address] | | + + + + + + + | Specimen | Performing Laboratory | + + + | Blood | [facility] [address] [place], | | | [place] [address] | + + + Renal function panel (07/25/2017 5:45 AM)Only the most recent of 3 results within the time period is included. + + + + | Component | Value | Ref Range | + + + + | SODIUM | 136 | 135 - 145 mmol/L | + + + + | POTASSIUM | 3.9 | 3.5 - 4.9 mmol/L | + + + + | CHLORIDE | 98 (L) | 99 - 109 mmol/L | + + + + | CO2 | 29 | 23 - 32 mmol/L | + + + + | ANION GAP AGAP | 13 | 5 - 20 mmol/L | + + + + | GLUCOSE | 90 | 65 - 99 mg/dL | + + + + | BUN | 25 | 8 - 25 mg/dL | + + + + | CREATININE | 5.5 (H) | 0.70 - 1.30 mg/dL | + + + + | CALCIUM | 6.9 (L) | 8.5 - 10.5 mg/dL | + + + + | Albumin | 3.2 (L) | 3.6 - 5.0 g/dL | + + + + | PHOSPHORUS | 3.7 | 2.3 - 4.8 mg/dL | + + + + | EGFR | 12 (L)Comment: GFR <60: CHRONIC KIDNEY | >60 mL/min/1.73m2 | | | DISEASE, IF FOUND OVER A 3 MONTH PERIOD.GFR | | | | <15: KIDNEY FAILURE.FOR AMERICANS, | | | | MULTIPLY THE CALCULATED GFR BY | | | | 1.210.Testing performed at [facility], [address] | | | | [place] [address] | | | | | | + + + + + + + | Specimen | Performing Laboratory | + + + | | [facility] [address] [place], | | | [place] [address] | + + + Urinalysis (reflex to micro/reflex to culture) (07/24/2017 11:35 PM) + + + + | Component | Value | Ref Range | + + + + | COLOR UA | YELLOW | | + + + + | CLARITY | HAZY | | + + + + | Specific Sunray, UA | 1.012 | 1.002 - 1.030 | + + + + | LEUKOCYTE ESTERASE | NEGATIVE | NEGATIVE | + + + + | NITRITE | NEGATIVE | NEGATIVE | + + + + | UROBILINOGEN | NORMAL | <1.1 mg/dL | + + + + | PROTEIN | >500 (A) | NEGATIVE mg/dL | + + + + | PH,URINE | 5.0 | 5.0 - 8.0 | + + + + | BLOOD | NEGATIVE | NEGATIVE | + + + + | KETONES | NEGATIVE | NEGATIVE mg/dL | + + + + | BILIRUBIN | NEGATIVE | NEGATIVE | + + + + | GLUCOSE | 50 (A) | NEGATIVE mg/dL | + + + + | WBC | 3-5 | 0 - 5 /hpf | + + + + | RBC | 0-2 | 0 - 2 /hpf | + + + + | BACTERIA | 1+ (A) | NONE SEEN | + + + + | EPITHELIAL | 16-25 | /lpf | + + + + | Mucus, UA | 1+ | | + + + + | AMORPHOUS CRYSTAL | 1+Comment: Testing performed at [facility] | | | [address];[place] [address] | | + + + + + + + | Specimen | Performing Laboratory | + + + | Urine, Unspecified | [facility] [address] [facility] [place] [address] | | Source | | + + + HEMODIALYSIS INPATIENT (07/24/2017 4:18 PM) + + | Narrative | + + | Jayy Christianson MD 07/25/2017 12:21 AM The patient is seen & examined during | | dialysis. he says that he feels 'better' today. he denies any cp, sob, abd pain, | | n/v. The following portions of the patient's history were reviewed and updated as | | appropriate: laboratory data, allergies, current medications, and problem list. | | P.E. BP 158/87 (BP Location: Left forearm) | Pulse 86 | Temp 98.3 F (36.8 | | C) (Oral) | Resp 18 | Ht 1.702 m (5' 7") | Wt 79.6 kg (175 lb 8 oz) | | | SpO2 99% | BMI 27.49 kg/m General appearance: Pleasant, not in acute distress. | | Lungs: Good A/E to auscultation bilaterally. There are no wheezes. | | Heart: Regular rate and rhythm without any rub, gallop. No murmur. Abdominal | | exam: Soft and nontender with normal bowel sounds. Extremities: Warm to touch | | with trace leg edema. There is no cyanosis. Neurological: Awake, alert, and | | oriented to time, place, and person. Normal gross motor power. There is no | | asterixis. Access: right arm AVF with good thrill. Just distal to it: the abscess | | head is noted: healed up and is crusted over; no fluctuance noted. nontender. Lab | | Results Component Value Date BUN 41 (H) 07/24/2017 CREATININE 7.4 (H) 07/24/2017 | | EGFR 8 (L) 07/24/2017 NA 136 07/24/2017 K 3.8 07/24/2017 CL 98 (L) | | 07/24/2017 CO2 29 07/24/2017 CA 6.6 (L) 07/24/2017 PHOS 5.4 (H) 07/24/2017 | | MG 2.4 07/24/2017 ALB 3.1 (L) 07/24/2017 HGB 12.7 (L) 07/24/2017 | | Assessment: Mr. Potter is a 52 y.o. male patient with ESRD. Now with an abscess just | | distal to the right arm AV fistula; discharge from that abscess grew MRSA from swab | | sent 07/19/17. Presented with: MRSA abscess near AV fistula Admitted with: same. | | Complications identified during his dialysis treatment: none. Recommendations: | | UF as tolerated No IV Epo with HD today Advise fluid restriction of 1.2 L per 24 hrs | | Prot suppl stressed Next dialysis treatment is planned for Saturday as outpt. JAYY H | | MD RISSA | + + Magnesium (07/24/2017 4:30 AM)Only the most recent of 2 results within the time period is included. + + + + | Component | Value | Ref Range | + + + + | MAGNESIUM | 2.4Comment: Testing performed at [facility], [address] | 1.7 - 2.4 mg/dL | | | [place] [address] | | + + + + + + + | Specimen | Performing Laboratory | + + + | Blood | [facility] [address] [place] [address] [place], | | | [place] [address] | + + + Hepatitis panel, Chronic (Reflex) (07/23/2017 10:32 AM) + + + + | Component | Value | Ref Range | + + + + | Hep A Total Ab | REACTIVE (A) | NON REACTIVE | + + + + | HEP B SURFACE AG | NON REACTIVE | NON REACTIVE | + + + + | HEP B CORE AB,TOTAL | NON REACTIVE | NON REACTIVE | + + + + | HEP B SURFACE | >24.00 (H)Comment: <1.00 | <1.00 IV | | ANTIBODY | Non Immune1.00 OR MORE Indicates vaccine | | | | response or response to HBV infection. An | | | | Index Value (IV) of 1.00 is equivalent to | | | | 10 mIU/mL. Samples with an IV of 1.00 or | | | | greater are considered reactive | | | | (protected) in accordance with CDC | | | | Guidelines. | | + + + + | HEPATITIS C | NON REACTIVE | NON REACTIVE | + + + + | HEPATITIS INTERP | Current or past HAV infection. Past HBV | | | | infection or vaccination. No serologic | | | | evidence of HCV infection.Comment: Testing | | | | performed at [facility], [address] [facility], | | | | [place] [address] | | + + + + + + + | Specimen | Performing Laboratory | + + + | | [facility] [address] [place], | | | [place] [address] | + + + US upper extremity right soft tissue (07/22/2017 9:44 PM) + + + | Specimen | Performing Laboratory | + + + | | [facility] [address] [facility] [place] [address] | + + + + + | Impressions | + + | 1. Mild edema surrounding the ectatic fistula/graft | + + + + | Narrative | + + | HISTORY: 52-year-old male, fluid collection suspected along fistula, placement 2 years | | ago TECHNIQUE: 1. Sonographic evaluation of the superficial tissues localizing | | to the right sided fistula, aVF. Not a interrogation of the fistula itself for patency | | although chronic color-flow interrogation was performed Prior study for review : | | None similar FINDINGS: The fistula itself is interrogated and there is mild | | edema around it, but no organized collection | + + + -------+ | Procedure Note | + -------+ | Néstor, Rad Results In - 07/22/2017 10:02 PM PST HISTORY: 52-year-old male, fluid | | collection suspected along fistula, placement 2 years agoTECHNIQUE:1. Sonographic | | evaluation of the superficial tissues localizing to the right sided fistula, aVF.Not a | | interrogation of the fistula itself for patency although chronic color-flow | | interrogation was performedPrior study for review : None similarFINDINGS:The fistula | | itself is interrogated and there is mild edema around it, but no organized | | collectionIMPRESSION:1. Mild edema surrounding the ectatic fistula/graftElectronically | | signed by Giovany Espiita MD on 07/22/2017 9:57 PM | | | |FINDINGS: | | | |The fistula itself is interrogated and there is mild edema around it, but no organized grace ection | | | |IMPRESSION: | | | |1. Mild edema surrounding the ectatic fistula/graft | | | | | | | | | + -------+ Blood Culture Set 2 (07/22/2017 9:26 PM) + + + + | Component | Value | Ref Range | + + + + | Specimen Description | BLOOD | | + + + + | SPECIAL REQUESTS | LAC | | + + + + | CULTURE | NO GROWTH 6 DAYS | | + + + + + + + | Specimen | Performing Laboratory | + + + | Blood - Blood | [facility] [address] [place], | | | [place] [address] | + + + MRSA by PCR (07/22/2017 9:22 PM) + + + + | Component | Value | Ref Range | + + + + | SOURCE | NARES(NOSE) | | + + + + | MRSA PCR | POSITIVE for MRSA by PCR (A)Comment: | NEGATIVE | | | Testing performed at [facility];[address] [place] [address] | | | | [place] [address] | | + + + + + + + | Specimen | Performing Laboratory | + + + | Nasopharyngeal - | [address] [address] | | Nares(Nose) | | + + + Blood Culture Set 1 (07/22/2017 3:05 PM) + + + + | Component | Value | Ref Range | + + + + | Specimen Description | BLOOD, PERIPHERAL DRAW | | + + + + | SPECIAL REQUESTS | LAC | | + + + + | CULTURE | NO GROWTH 6 DAYS | | + + + + + + + | Specimen | Performing Laboratory | + + + | Blood - Blood, | [facility] [address] [place], | | peripheral draw | [place] [address] | + + + Sedimentation Rate (ESR) (07/22/2017 2:40 PM) + + + + | Component | Value | Ref Range | + + + + | ESR | 13Comment: Testing performed at [facility];[address] | 0 - 20 mm/Hr | | | [place] [address] | | + + + + + + + | Specimen | Performing Laboratory | + + + | Blood | [facility] [address] [place] [address] | + + + C-Reactive Protein (07/22/2017 2:40 PM) + + + + | Component | Value | Ref Range | + + + + | CRP | 1.3 (H)Comment: Testing performed at | <0.5 mg/dL | | | [facility];[address] [facility];[place] [address] | | + + + + + + + | Specimen | Performing Laboratory | + + + | Blood | [facility] [address] [facility] [facility] [place] [address] | + + + Lactic acid (07/22/2017 2:30 PM) + + + + | Component | Value | Ref Range | + + + + | LACTIC ACID | 1.0Comment: Testing performed at [facility] | 0.4 - 2.0 mmol/L | | | [facility];[place] [address] | | + + + + + + + | Specimen | Performing Laboratory | + + + | Blood | [facility] [address] [place] [address] | + + + Comprehensive metabolic panel (07/22/2017 2:30 PM) + + + + | Component | Value | Ref Range | + + + + | SODIUM | 129 (L) | 135 - 145 mmol/L | + + + + | POTASSIUM | 3.9Comment: [facility] HEMOLYSIS | 3.5 - 4.9 mmol/L | + + + + | CHLORIDE | 97 (L) | 99 - 109 mmol/L | + + + + | CO2 | 9 (LL) | 23 - 32 mmol/L | | | Comment: | | | | CALLED NURSING UNIT | | | | READ BACK RESULTS VERIFIED | | | | ALLEN K IN WAITING ROOM AT 1511 BY GEM | | | | | | + + + + | ANION GAP AGAP | 30 (H) | 5 - 20 mmol/L | + + + + | GLUCOSE | 183 (H) | 65 - 99 mg/dL | + + + + | BUN | 90 (H) | 8 - 25 mg/dL | + + + + | CREATININE | 12 (H) | 0.70 - 1.30 mg/dL | + + + + | BUN/CREAT | 8 | | + + + + | CALCIUM | 7.1 (L) | 8.5 - 10.5 mg/dL | + + + + | TOTAL PROTEIN | 7.5 | 6.3 - 8.2 g/dL | + + + + | Albumin | 3.6 | 3.6 - 5.0 g/dL | + + + + | GLOBULIN | 3.9 | 1.3 - 4.9 g/dL | + + + + | A/G | 0.9 (L) | 1.0 - 2.4 | + + + + | TBIL | 0.6 | 0.1 - 1.5 mg/dL | + + + + | ALK PHOS | 140 (H) | 35 - 115 U/L | + + + + | AST | 48 (H)Comment: SLT HEMOLYSIS | 10 - 45 U/L | + + + + | ALT | 56 | 10 - 65 U/L | + + + + | EGFR | 5 (L)Comment: GFR <60: CHRONIC KIDNEY | >60 mL/min/1.73m2 | | | DISEASE, IF FOUND OVER A 3 MONTH PERIOD.GFR | | | | <15: KIDNEY FAILURE.FOR AMERICANS, | | | | MULTIPLY THE CALCULATED GFR BY | | | | 1.210.Testing performed at [facility];[address] [place] [address] | | | | [facility] [address] | | | | | | + + + + + + + | Specimen | Performing Laboratory | + + + | Blood | [facility] [address] [place] [address] | + + + from Last 3 Months Insurance + +--------+ +------+-------+ + | Payer | Benefi | Subscriber | Type | Phone | Address | | | t Plan | ID | | | | | | / | | | | | | | Group | | | | | + +--------+ +------+-------+ + | MEDICARE | MEDICA | xxxxxxxxxx | | | [address] | | | RE | | | | [place] [address] | | | IP-OP | | | | | + +--------+ +------+-------+ + | MEDICAID | MEDICA | xxxxxxxx | | | [address] | | | ID | | | | [place] | | | [place] | | | | [phone] | + +--------+ +------+-------+ + | [employer] | YELLOW | xxxxxxxxx | | | | | PLANS | [place] | | | | | + +--------+ +------+-------+ + + +--------+ +--------+ + + | Guarantor Name | Accoun | Relation to | Date | Phone | Billing Address | | | t Type | Patient | of | | | | | | | | | | + +--------+ +--------+ + + | ENRIQUE POTTER | Person | Self [birth year] Home: | [address] | | | al/Fam | | [phone] | [phone] | [place] | | | juan | | | [phone] | [phone] | + +--------+ +--------+ + +
--- OUTSIDE RECORDS SUMMARY | ~2017-10-06 | XMS | Clinical Summary ---
Demographics + + + | Address | [address] | | | [place] [address] | + + + | Home Phone | | + + + | Preferred Language | Unknown | + + + | Marital Status | Unknown | + + + | Cheondoism Affiliation | Unknown | + + + | Race | Unknown | + + + | Ethnic Group | Unknown | + + + Author + + + | Author | [facility] | | | and [place] | + + + | Organization | [facility] | | | and [place] | + + + | Address | Unknown | + + + | Phone | Unavailable | + + + Care Team Providers + +------+ + | Care [place] Supervisor Name | Role | Phone | + [...] + + + + | Overview: JAMIL [id number] Decision | + + + +---+ | [...]
--- OUTSIDE RECORDS SUMMARY | ~2017-10-06 | XMS | Encounter Summary ---
Demographics + + + | Address | [address] | | | [place] [address] | + + + | Home Phone | | + + + | Preferred Language | Unknown | + + + | Marital Status | | + + + | Taoism Affiliation | [id number] | + + + | Race | Unknown | + + + | Ethnic Group | Unknown | + + + Author + + + | Author | Zoji | + + + | Organization | [facility] [facility] | + + + | Address [...] Team Providers + +------+ + | Care Hydro Station Operator Name | Role | Phone | + +------+ + | Andry Deng MD | PCP | | + +------+ + Reason for Visit + + + | Reason | Comments | + + + | Skin Complaint | Pt states "my fistula is leaking pus." | + + + | Referral | saida Smith RN. | + + + Auth/Cert +--------+--------+ + + + + | Status | Reason | Specialty | Diagnoses / | Referred By | Referred To | | | | | Procedures | Contact | Contact | +--------+--------+ + + + + | | | Internal | | | [facility]th | | | | Medicine | | | [facility] | | | | | | | [facility] [address] | | | | | | | [address] | | | | | | | [place] | | | | | | | [address] Phone: | | | | | | | [phone] | +--------+--------+ + + + + Encounter Details +--------+ + + + + | Date | Type | Department | Care Team | Description | +--------+ + + + + | 07/22/ | Hospital | [facility] | Huan Martínez, | MRSA infection | | 2018 - | Encounter | [facility] | DO [address] | (Primary Dx); | | | | [facility] | EMERGENCY | Complication of AV | | 07/25/ | | [address] | DEPARTMENT | dialysis fistula, | | 2017 | | [place] [address] | [place] [address] | initial encounter; | | | | [phone] | [phone] | End stage renal | | | | | | failure on dialysis | | | | | Vaishnavi Edward MD | (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, subsequent | | | | | Albino Altamirano MD | encounter | | | | | [address] | | | | | | [place] [address] | | | | | | [phone] | | | | | | | [...] + + + as of this encounter Last Filed Vital Signs + + + + | Vital Sign | Reading | Time Taken | + + + + | Blood Pressure | 137/60 | 07/25/2017 11:11 AM PST | + + + + | Pulse | 80 | 07/25/2017 11:11 AM PST | + + + + | Temperature | 37.1 C (98.7 F) | 07/25/2017 11:11 AM PST | + + + + | Respiratory Rate | 18 | 07/25/2017 11:11 AM PST | + + + + | Oxygen Saturation | 99% | 07/25/2017 11:11 AM PST | + + + + | Inhaled Oxygen | - | - | | Concentration | | | + + + + | Weight | 79.6 kg (175 lb 8 | 07/24/2017 10:19 PM PST | | | oz) | | + + + + | Height | 170.2 cm (5' 7") | 07/22/2017 9:12 PM PST | + + + + | Body Mass Index | 27.49 | 07/24/2017 10:19 PM PST | + + + + in this encounter Discharge Summaries Albino Altamirano MD - 07/25/2017 9:18 AM PSTFormatting of this note may be different from stefanie ramires. [facility] Service: Hospitalist Discharge Summary Date of Admission: 07/22/2017 Date of Discharge: 07/25/2017 Discharge Provider: ALBINO ALTAMIRANO MD Treatment Team: Consulting Physician: Juana Kwok MD Admitting Provider: Vaishnavi Edward MD Discharge Diagnoses: Principal Problem: AV [...] Left forearm Pulse: 86 81 80 Resp: Temp: 98.3 F (36.8 C) 97.7 F [...] Incision Site) Follow up: Juana Kwok MD [address] [place] [address] [address] Schedule an appointment as soon as possible for a visit in 1 week post hospital [place] [address] [facility] [place] [address] Medication List CHANGE how you take these [...] These medications were sent to [facility] [place] [facility] [address] carvedilol 3.125 MG tablet Discharge took 35 minutes, to include final examination, discussion of admission, and prepa ration of prescriptions, instructions for on-going care, follow-up and documentation of disc harge summary. Dictation and casino worker or software, Dragon, used which may contain error for similar s ounding words even after review. Personal communication requested for any clarification. ALIBNO ALTAMIRANO MD 07/25/2017 9:18 AM in this encounter Medications at Time of Discharge + + + +---------+ + + | Medication | Sig. | Disp. | Refills | Start | End Date | | | | | | Date | | + + + +---------+ + + | acetaminophen | Take 650 mg by mouth | | | | | | (TYLENOL) 325 MG | every 6 (six) hours | | | | | | tabletIndications: | as needed. | | | | | | Pain | Indications: Pain | | | | | + + + +---------+ + + | allopurinol | Take 100 mg by mouth | | | | | | (ZYLOPRIM) 100 MG | daily. Indications: | | | | | | tabletIndications: | Primary Gout | | | | | | Primary Gout | | | | | | + + + +---------+ + + | amLODIPine | Take 10 mg by mouth | | | | | | (NORVASC) 10 MG | daily. | | | | | | tablet | | | | | | + + + +---------+ + + | b complex-vitamin | Take 1 tablet by | 30 | 11 | 01/25/20 | | | c-folic acid | mouth daily. | tablet | | 17 | | | (NEPHRO-THU) 0.8 MG | | | | | | | TABS | | | | | | | tabletIndications: | | | | | | | ESRD (end stage | | | | | | | renal disease) on | | | | | | | dialysis (HCC) | | | | | | + + + +---------+ + + | carvedilol (COREG) | Take 2 tablets by | 60 | 0 | 07/25/19 | | | 3.125 MG tablet | mouth 2 (two) times | tablet | | 18 | | | | daily with meals. | | | | | + + + +---------+ + + | Cholecalciferol | Take 1 tablet by | | | | | | 2000 UNITS TABS | mouth daily. | | | | | + + + +---------+ + + | | Inhale 1 puff into | 60 each | 0 | 10/29/19 | | | fluticasone-salmeter | the lungs 2 (two) | | | 14 | | | ol (ADVAIR DISKUS) | times daily. | | | | | | 250-50 MCG/DOSE | | | | | | + + + +---------+ + + | | | | | 10/04/19 | | | HYDROcodone-acetamin | | | | 17 | | | ophen (NORCO) 5-325 | | | | | | | MG per tablet | | | | | | + + + +---------+ + + | levothyroxine | Take 75 mcg by mouth | | | | | | (SYNTHROID) 75 MCG | every morning | | | | | | tabletIndications: | before breakfast. | | | | | | Hypothyroidism | Indications: | | | | | | | Underactive Thyroid | | | | | + + + +---------+ + + | ondansetron | | | | 10/04/19 | | | (ZOFRAN-ODT) 8 MG | | | | 17 | | | disintegrating | | | | | | | tablet | | | | | | + + + +---------+ + + | sevelamer | take 3 tablets by | 300 | 5 | 01/25/20 | | | (RENVELA) 800 MG | mouth three times a | tablet | | 17 | | | tabletIndications: | day WITH MEALS AND 1 | | | | | | ESRD (end stage | TABLET WITH SNACKS | | | | | | renal disease) on | | | | | | | dialysis (HCC) | | | | | | + + + +---------+ + + | sodium bicarbonate | Take 1,300 mg by | | | | | | 650 MG tablet | mouth 2 (two) times | | | | | | | daily. | | | | | + + + +---------+ + + as of this encounter Progress Notes Juana Kwok MD - 07/25/2017 8:56 AM PSTFormatting of this note may be different from mariela original. [facility] Service: Nephrology Progress Note Hospital Problem [...] fistula Admitted with: same. Recommendations: No acute AIR COMMODORE indication Plan it for outpt MWF schedule Prot suppl stressed IV Vanco 1g MWF x4 more doses in the dialysis outpt setting I discussed with the primary team the case at the time of this encounter. JUANA KWOK MD 07/25/2017Albino Altamirano MD - 07/24/2017 11:30 AM PSTFormatting of this note may be differen t from the original. [facility] Service: Hospitalist Progress Note Hospital Day: [...] Left forearm Pulse: 85 91 66 Resp: 16 16 18 Temp: 98.4 F (36.9 C) 98.2 F [...] MRSA growth. Will continue vanco for now. Jourdan nt has history of non compliance so [...] Inpatient. Code Status: Full Code Dictation and casino worker or software, IntroBridge, used which may contain error for similar s ounding words even after review. Personal communication requested for any clarification. ALBINO ALTAMIRANO MD 07/24/2017 11:30 AM Reba Roldan [facility] - 07/24/2017 8:55 AM PSTVancomycin Monitoring Day 3 Clinician Dosing: Pharmacy Dosing [...] HD dosing protocol 07/24/2017 8:51 AM Pharmacist: Ambika Roque [facility] - 07/23/2017 8:24 PM PSTHD patient so famotidin e 20mg po changed to once dailyCamilo Samson RN - 07/23/2017 6:14 PM PSTPt received HD wi th 1L taken off. No acutre changes this shift. Camilo Samson, Albino Austin MD - 07/23/2017 2:36 PM PSTFormatting of this note may be different from t he original. [facility] Service: Hospitalist Progress Note Hospital Day: [...] Location: Pulse: 83 80 81 83 Resp: 18 16 18 16 Temp: TempSrc: SpO2: 100% [...] Inpatient. Code Status: Full Code Dictation and casino worker or software, IntroBridge, used which may contain error for similar s ounding words even after review. Personal communication requested for any clarification. ALBINO ALTAMIRANO MD 07/23/2017 2:36 PM Shira Werner RN - 07/23/2017 8:56 AM PSTInfection Prevention Note: Pt with a nasal PCR positive for MRSA. Contact Isolation precautions required for this hosp italization . Thank you! Shira Werner RN, BSN, [facility] Infection Control Coord [phone] in this encounter Plan of Treatment Not [...] + + + in this encounter Results POCT glucose (07/25/2017 11:14 AM) + + + + | Component | Value | Ref Range | + + + + | GLUCOSE,POC SCREEN | 117 (H)Comment: Testing performed at | 65 - 99 mg/dL | | | [facility];[address] [facility];[place] [address] | | + + + + + + + | Specimen | Performing Laboratory | + + + | | [facility] [address] [place] [address] | + + + Renal function panel (07/25/2017 5:45 AM) + + + + | Component [...] | | | | 1.210.Testing performed at [facility], [address] | | | | [place] [address] | | | | | | + + + + + + + | Specimen | Performing Laboratory | + + + | | [facility] [address] [place], [place] [address], | | | [place] [address] | + + + CBC w/auto diff (reflex to manual) (07/25/2017 5:45 AM) + + + + | Component [...] BASOPHILS ABS | 0.06Comment: Testing performed at [facility], [facility] | 0.00 - 0.10 K/uL | | | [place] [address] | | + + + + + + + | Specimen | Performing Laboratory | + + + | Blood | [address] [place], | | | [place] [address] | + + + POCT glucose (07/25/2017 5:37 AM) + + + + | Component | Value | Ref Range | + + + + | GLUCOSE,POC SCREEN | 121 (H)Comment: Testing performed at | 65 - 99 mg/dL | | | [address] [facility];[place] [address] | | + + + + + + + | Specimen | Performing Laboratory | + + + | | [facility] [address] [place] [address] | + + + Urinalysis (reflex to micro/reflex to culture) (07/24/2017 11:35 PM) + + + + | Component | Value | Ref Range | + + + + | COLOR UA | YELLOW | | + + + + | CLARITY | HAZY | | + + + + | Specific [place], UA | 1.012 | 1.002 - 1.030 [...] AMORPHOUS CRYSTAL | 1+Comment: Testing performed at [facility];[address] | | | | [address];[place] [address] | | + + + + + + + | Specimen | Performing Laboratory | + + + | Urine, Unspecified | [facility] [address] [facility] [place] [address] | | Source | | + + + POCT glucose (07/24/2017 9:35 PM) + + + + | Component | Value | Ref Range | + + + + | GLUCOSE,POC SCREEN | 195 (H)Comment: Testing performed at | 65 - 99 mg/dL | | | [facility];[address] [facility] [address] | | + + + + + + + | Specimen | Performing Laboratory | + + + | | [facility] [address] [place] [address] | + + + HEMODIALYSIS INPATIENT (07/24/2017 4:18 PM) + + | Narrative | + + | Juana Kwok MD 07/25/2017 12:21 AM The patient is [...] is planned for Saturday as outpt. JUANA H | | MD RISSA | + + POCT glucose (07/24/2017 4:01 PM) + + + + | Component | Value | Ref Range | + + + + | GLUCOSE,POC SCREEN | 164 (H)Comment: Testing performed at | 65 - 99 mg/dL | | | [facility];[address] [facility];[place] [address] | | + + + + + + + | Specimen | Performing Laboratory | + + + | | [facility] [address] [facility] [place] [address] | + + + POCT glucose (07/24/2017 11:28 AM) + + + + | Component | Value | Ref Range | + + + + | GLUCOSE,POC SCREEN | 176 (H)Comment: Testing performed at | 65 - 99 mg/dL | | | [facility];[address] [facility];[place] [address] | | + + + + + + + | Specimen | Performing Laboratory | + + + | | [facility] [address] [facility] [place] [address] | + + + POCT glucose (07/24/2017 5:18 AM) + + + + | Component | Value | Ref Range | + + + + | GLUCOSE,POC SCREEN | 100 (H)Comment: Testing performed at | 65 - 99 mg/dL | | | [facility];[address] [facility];[place] [address] | | + + + + + + + | Specimen | Performing Laboratory | + + + | | [place] [address] [address] [facility] [place] [address] | + + + Renal function panel (07/24/2017 4:30 AM) + + + + | Component | Value | Ref Range | + + + + | SODIUM | 136 | 135 - 145 mmol/L | + + + + | POTASSIUM | 3.8 | 3.5 - 4.9 mmol/L | + + + + | CHLORIDE | 98 (L) | 99 - 109 mmol/L | + + + + | CO2 | 29 | 23 - 32 mmol/L | + + + + | ANION GAP AGAP | 13 | 5 - 20 mmol/L | + + + + | GLUCOSE | 91 | 65 - 99 mg/dL | + + + + | BUN | 41 (H) | 8 - 25 mg/dL | + + + + | CREATININE | 7.4 (H) | 0.70 - 1.30 mg/dL | + + + + | CALCIUM | 6.6 (L) | 8.5 - 10.5 mg/dL | + + + + | Albumin | 3.1 (L) | 3.6 - 5.0 g/dL | + + + + | PHOSPHORUS | 5.4 (H) | 2.3 - 4.8 mg/dL | + + + + | EGFR | 8 (L)Comment: GFR <60: CHRONIC KIDNEY | >60 mL/min/1.73m2 | | | DISEASE, IF FOUND OVER A 3 MONTH PERIOD.GFR | | | | <15: KIDNEY FAILURE.FOR AMERICANS, | | | | MULTIPLY THE CALCULATED GFR BY | | | | 1.210.Testing performed at [facility], [address] | | | | [place] [address] | | | | | | + + + + + + + | Specimen | Performing Laboratory | + + + | | [facility] [address] [place], [place] [address]vd. [place], | | | [place] [address] | + + + CBC w/auto diff (reflex to manual) (07/24/2017 4:30 AM) + + + + | Component | Value | Ref Range | + + + + | WBC | 6.45 | 3.80 - 11.00 K/uL | + + + + | RBC | 4.20 | 4.20 - 5.70 M/uL | + + + + | HGB | 12.7 (L) | 13.2 - 17.0 g/dL | + + + + | HCT | 37.0 (L) | 39.0 - 50.0 % | + + + + | MCV | 88.2 | 80.0 - 100.0 fl | + + + + | MCH | 30.2 | 27.0 - 34.0 pg | + + + + | MCHC | 34.3 | 32.0 - 35.5 g/dL | + + + + | RDW SD | 54.7 (H) | 37 - 53 fl | + + + + | PLT | 184 | 150 - 400 K/uL | + + + + | MPV | 7.1 | fl | + + + + | DIFF TYPE | AUTOMATED | | + + + + | NEUTROPHILS | 66.67 | % | + + + + | LYMPHOCYTES | 11.35 | % | + + + + | MONOCYTES | 10.22 | % | + + + + | EOSINOPHILS | 10.73 | % | + + + + | BASOPHILS | 1.03 | % | + + + + | NEUTROPHILS ABS | 4.30 | 1.90 - 7.40 K/uL | + + + + | LYMPHOCYTES ABS | 0.73 (L) | 1.00 - 3.90 K/uL | + + + + | MONOCYTES ABS | 0.66 | 0.00 - 0.80 K/uL | + + + + | EOSINOPHILS ABS | 0.69 (H) | 0.00 - 0.50 K/uL | + + + + | BASOPHILS ABS | 0.07Comment: Testing performed at [facility], [facility] | 0.00 - 0.10 K/uL | | | [place] [address] | | + + + + + + + | Specimen | Performing Laboratory | + + + | Blood | [facility] [address] [place], | | | [place] [address] | + + + Magnesium (07/24/2017 4:30 AM) + + + + | Component | Value | Ref Range | + + + + | MAGNESIUM | 2.4Comment: Testing performed at [facility], [address] | 1.7 - 2.4 mg/dL | | | [place] [address] | | + + + + + + + | Specimen | Performing Laboratory | + + + | Blood | [facility] [address] [place] [address] [place], | | | [place] [address] | + + + POCT glucose (07/23/2017 9:31 PM) + + + + | Component | Value | Ref Range | + + + + | GLUCOSE,POC SCREEN | 136 (H)Comment: Testing performed at | 65 - 99 mg/dL | | | [facility];[address] [facility] [place] [address] | | + + + + + + + | Specimen | Performing Laboratory | + + + | | [facility] [address] [facility] [place] [address] | + + + POCT glucose (07/23/2017 4:24 PM) + + + + | Component | Value | Ref Range | + + + + | GLUCOSE,POC SCREEN | 111 (H)Comment: Testing performed at | 65 - 99 mg/dL | | | [facility];[address] [facility];[place] [address] | | + + + + + + + | Specimen | Performing Laboratory | + + + | | [facility] [place] [place] [facility] [place] [address] | + + + Hepatitis panel, Chronic [...] Testing | | | | performed at [facility], [address] [place] [address], | | | | [place] [address] | | + + + + + + + | Specimen | Performing Laboratory | + + + | | [address] [place], | | | [place] [address] | + + + POCT glucose (07/23/2017 5:42 AM) + + + + | Component | Value | Ref Range | + + + + | GLUCOSE,POC SCREEN | 138 (H)Comment: Testing performed at | 65 - 99 mg/dL | | | [facility];[address] [address] | | + + + + + + + | Specimen | Performing Laboratory | + + + | | [facility] [address] [facility] [place] [address] | + + + Renal function panel (07/23/2017 5:01 AM) + + + + | Component | Value | Ref Range | + + + + | SODIUM | 130 (L) | 135 - 145 mmol/L | + + + + | POTASSIUM | 3.8 | 3.5 - 4.9 mmol/L | + + + + | CHLORIDE | 99 | 99 - 109 mmol/L | + + + + | CO2 | 9 (LL) | 23 - 32 mmol/L | | | Comment: | | | | RESULT READ BACK BY: | | | | TRIP Dean 7RP 6:57 07/23/17 DH | | | | | | + + + + | ANION GAP AGAP | 26 (H) | 5 - 20 mmol/L | + + + + | GLUCOSE | 147 (H) | 65 - 99 mg/dL | + + + + | BUN | 96 (H) | 8 - 25 mg/dL | + + + + | CREATININE | 12.7 (H) | 0.70 - 1.30 mg/dL | + + + + | CALCIUM | 7.1 (L) | 8.5 - 10.5 mg/dL | + + + + | Albumin | 3.5 (L) | 3.6 - 5.0 g/dL | + + + + | PHOSPHORUS | 9.3 (HH) | 2.3 - 4.8 mg/dL | | | Comment: | | | | RESULT READ BACK BY: | | | | TRIP Tan @ 7RP 6:57 07/23/17 | | | | | | + + + + | EGFR | 4 (L)Comment: GFR <60: CHRONIC KIDNEY | >60 mL/min/1.73m2 | | | DISEASE, IF FOUND OVER A 3 MONTH PERIOD.GFR | | | | <15: KIDNEY FAILURE.FOR AMERICANS, | | | | MULTIPLY THE CALCULATED GFR BY | | | | 1.210.Testing performed at [facility], [address] | | | | [place] [address] | | | | | | + + + + + + + | Specimen | Performing Laboratory | + + + | | [facility] [address] [place], [place] [address]vd. [place], | | | [place] [address] | + + + CBC w/auto diff (reflex to manual) (07/23/2017 5:01 AM) + + + + | Component | Value | Ref Range | + + + + | WBC | 7.21 | 3.80 - 11.00 K/uL | + + + + | RBC | 4.23 | 4.20 - 5.70 M/uL | + + + + | HGB | 12.8 (L) | 13.2 - 17.0 g/dL | + + + + | HCT | 37.9 (L) | 39.0 - 50.0 % | + + + + | MCV | 89.5 | 80.0 - 100.0 fl | + + + + | MCH | 30.2 | 27.0 - 34.0 pg | + + + + | MCHC | 33.7 | 32.0 - 35.5 g/dL | + + + + | RDW SD | 56.0 (H) | 37 - 53 fl | + + + + | PLT | 198 | 150 - 400 K/uL | + + + + | MPV | 7.0 | fl | + + + + | DIFF TYPE | AUTOMATED | | + + + + | NEUTROPHILS | 73.75 | % | + + + + | LYMPHOCYTES | 10.04 | % | + + + + | MONOCYTES | 9.13 | % | + + + + | EOSINOPHILS | 5.94 | % | + + + + | BASOPHILS | 1.14 | % | + + + + | NEUTROPHILS ABS | 5.31 | 1.90 - 7.40 K/uL | + + + + | LYMPHOCYTES ABS | 0.72 (L) | 1.00 - 3.90 K/uL | + + + + | MONOCYTES ABS | 0.66 | 0.00 - 0.80 K/uL | + + + + | EOSINOPHILS ABS | 0.43 | 0.00 - 0.50 K/uL | + + + + | BASOPHILS ABS | 0.08Comment: Testing performed at [facility], [address] | 0.00 - 0.10 K/uL | | | [facility], [place] [address] | | + + + + + + + | Specimen | Performing Laboratory | + + + | Blood | [address] [place], | | | [place] [address] | + + + Magnesium (07/23/2017 5:01 AM) + + + + | Component | Value | Ref Range | + + + + | MAGNESIUM | 3.1 (H)Comment: Testing performed at [facility], | 1.7 - 2.4 mg/dL | | | [address] [facility] [place] | | | | [address] | | + + + + + + + | Specimen | Performing Laboratory | + + + | Blood | [facility] [address] [place], | | | [place] [address] | + + + POCT glucose (07/22/2017 10:00 PM) + + + + | Component | Value | Ref Range | + + + + | GLUCOSE,POC SCREEN | 159 (H)Comment: Testing performed at | 65 - 99 mg/dL | | | [facility];[address] [place] [address];[place] [address] | | + + + + + + + | Specimen | Performing Laboratory | + + + | | [facility] [address] [facility] [place] [address] | + + + US upper extremity right soft tissue (07/22/2017 9:44 PM) + + + | Specimen | Performing Laboratory | + + + | | [place] [address] [place] [address] | + + + + + | [...] ectatic fistula/graftElectronically | | signed by Giovany Espitia MD on 07/22/2017 9:57 PM | | [...] + + | Blood - Blood | [facility] [address] [place], | | | [place] [address] | + + + MRSA by PCR (07/22/2017 9:22 PM) + + + + | Component | Value | Ref Range | + + + + | SOURCE | NARES(NOSE) | | + + + + | MRSA PCR | POSITIVE for MRSA by PCR (A)Comment: | NEGATIVE | | | Testing performed at [facility];[address] | | | | [place] [address] | | + + + + + + + | Specimen | Performing Laboratory | + + + | Nasopharyngeal - | [facility] [address] [place] [address] | | Nares(Nose) | | + + [...] + + | Blood - Blood, | [facility] [address] [place] [address] [address] [place], | | peripheral draw | [place] [address] | + + + Sedimentation Rate (ESR) (07/22/2017 2:40 PM) + + + + | Component | Value | Ref Range | + + + + | ESR | 13Comment: Testing performed at [facility] | 0 - 20 mm/Hr | | | [facility];[place] [address] | | + + + + + + + | Specimen | Performing Laboratory | + + + | Blood | [place] [address] [place] [address] | + + + C-Reactive Protein (07/22/2017 2:40 PM) + + + + | Component | Value | Ref Range | + + + + | CRP | 1.3 (H)Comment: Testing performed at | <0.5 mg/dL | | | [facility];[address] [place] [address];[place] [address] | | + + + + + + + | Specimen | Performing Laboratory | + + + | Blood | [facility] [address] [place] [address] | + + + Lactic acid (07/22/2017 2:30 PM) + + + + | Component | Value | Ref Range | + + + + | LACTIC ACID | 1.0Comment: Testing performed at [facility];888 | 0.4 - 2.0 mmol/L | | | [facility];[place] [address] | | + + + + + + + | Specimen | Performing Laboratory | + + + | Blood | [facility] [address] [facility] [place] [address] | + + + Comprehensive metabolic panel [...] K IN WAITING ROOM AT 1511 BY CRK | | | | | | + [...] | | | | 1.210.Testing performed at [facility];[address] [place] [address] | | | | [place] [address] | | | | | | + + + + + + + | Specimen | Performing Laboratory | + + + | Blood | [facility] [address] [place] [address] | + + + CBC with differential (07/22/2017 2:30 PM) + + + + | Component | Value | Ref Range | + + + + | WBC | 9.45 | 3.80 - 11.00 K/uL | + + + + | RBC | 4.22 | 4.20 - 5.70 M/uL | + + + + | HGB | 12.4 (L) | 13.2 - 17.0 g/dL | + + + + | HCT | 37.7 (L) | 39.0 - 50.0 % | + + + + | MCV | 89.5 | 80.0 - 100.0 fl | + + + + | MCH | 29.3 | 27.0 - 34.0 pg | + + + + | MCHC | 32.8 | 32.0 - 35.5 g/dL | + + + + | RDW SD | 55.6 (H) | 37 - 53 fl | + + + + | PLT | 192 | 150 - 400 K/uL | + + + + | MPV | 6.5 | fl | + + + + | DIFF TYPE | AUTOMATED | | + + + + | NEUTROPHILS | 82.56 | % | + + + + | LYMPHOCYTES | 8.31 | % | + + + + | MONOCYTES | 7.15 | % | + + + + | EOSINOPHILS | 1.05 | % | + + + + | BASOPHILS | 0.93 | % | + + + + | NEUTROPHILS ABS | 7.81 (H) | 1.90 - 7.40 K/uL | + + + + | LYMPHOCYTES ABS | 0.79 (L) | 1.00 - 3.90 K/uL | + + + + | MONOCYTES ABS | 0.68 | 0.00 - 0.80 K/uL | + + + + | EOSINOPHILS ABS | 0.10 | 0.00 - 0.50 K/uL | + + + + | BASOPHILS ABS | 0.09Comment: Testing performed at [facility] | 0.00 - 0.10 K/uL | | | [facility];[place] [address] | | + + + + + + + | Specimen | Performing Laboratory | + + + | Blood | [facility] [address] [place] [address] | + + + ED INFORMATION EXCHANGE (07/22/2017 1:31 PM) + + + | Specimen | Performing Laboratory | + + + | | ED INFORMATION EXCHANGE | + + + + + | Narrative | + + | [id number] This patient has registered at the [facility] | [facility] Emergency Department For more information visit: | | [id number] ED Care | | Guidelines There are currently no ED Care Guidelines in DECLAN for this patient. Please | | check your facility's medical records system. Recent Emergency Department Visit Summary | | Admit Date Facility City State Type Major Type Diagnoses or Chief Complaint Jul 22, | | 2017 [facility] 2017 [facility] | | Ra[place]am[place] Emergency Emergency Allergy status to penicillin | | Hypertensive chronic kidney disease with stage 5 chronic kidney disease or end stage | | renal disease Type 2 diabetes mellitus with diabetic chronic kidney disease | | Allergy status to other drugs, medicaments and biological substances status | | Dependence on renal dialysis End stage renal disease Unspecified asthma, | | uncomplicated Gastro-esophageal reflux disease without esophagitis Other | | residential (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 Periapical abscess without sinus E.D. | | Visit Count (12 mo.) Facility Visits Low Acuity [facility] 4 0 | | [facility] 13 0 Total 17 0 Note: Visits indicate total known visits. | | Medicaid Low Acuity Dx are the number of primary diagnoses on the Medicaid's Low Acuity | | dx list. Recent Inpatient Visit Summary No recorded inpatient visits. PDMP | | Report PDMP report does not meet criteria. Care Providers Provider PRC Type Phone | | Fax Service Dates Andry Deng Primary Care Current | | Known Aliases No known aliases. [...] the aforementioned facilities for additional information. 2018 [employer] | | [employer] - [place], [place] - [email or web address] | + + + + | Procedure Note | + + | Interface, Lab - 07/22/2017 1:32 PM PST Formatting of this note may be different | | from the original.[id number] [id number] patient has registered at the [facility] | | [facility] Emergency Department For more information visit: | | [id number] ED Care | | GuidelinesThere are currently no ED Care Guidelines in DECLAN for this patient. Please | | check your facility's medical records system.Recent Emergency Department Visit | | SummaryAdmit Date Facility [facility] State Type Major Type Diagnoses or Chief Complaint Jun | | 2017 [facility] [place] Emergency Emergency Apr 26, 2017 [facility] | | [place] Emergency Emergency Allergy status to penicillin | | Hypertensive chronic kidney disease with stage 5 chronic kidney disease or end stage | | renal disease Type 2 diabetes mellitus with diabetic chronic kidney disease | | Allergy status to other drugs, medicaments and biological substances status | | Dependence on renal dialysis End stage renal disease Unspecified asthma, | | uncomplicated Gastro-esophageal reflux disease without esophagitis Other residential | | (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 Periapical abscess without sinus E.D. Visit Count (12 | | mo.)Facility Visits Low Acuity [facility] 4 0 [facility] | | Hospital 13 0 Total 17 0 Note: Visits indicate total known visits. Medicaid Low Acuity | | Dx are the number of primary diagnoses on the Medicaid's Low Acuity dx list. Recent | | Inpatient Visit SummaryNo recorded inpatient visits. PDMP ReportPDMP report does not | | meet criteria.Care ProvidersProvider PRC Type Phone Fax Service Dates Andry Quaempts | | Primary Care Current Known AliasesNo known aliases. | | Criteria met 10 in 12The above information is provided for the sole purpose of patient | | treatment. Use of this information beyond the terms of Data Sharing Memorandum of | | Understanding and License Agreement is prohibited. In certain cases not all visits may | | be represented. Consult the aforementioned facilities for additional information. 2018 | | [employer] [place], [place] - | | [email or web address] | |[facility] 13 0 | |Total 17 0 | |Note: Visits indicate total known visits. Medicaid Low Acuity Dx are the number of primary diagnoses on the Medicaid's Low Acuity dx list. | | | |Recent Inpatient Visit Summary | |No recorded inpatient visits. | | | |PDMP Report | |PDMP report does not meet criteria. | | | |Care Providers | |Provider PRC Type Phone Fax Service Dates | |Andry Quaempts Primary Care Current | | | |Known Aliases | |No known aliases. [...] the aforementioned facilities for additional information. | |2017 [employer] [place], [place] - | + + in this encounter Visit Diagnoses + + | Diagnosis | + + | MRSA infection | + + | Methicillin resistant Staphylococcus aureus in conditions classified elsewhere and of | | unspecified site | + + | Complication of AV dialysis fistula, initial encounter | + + | ESRD (end stage renal disease) on dialysis | + + | End stage renal disease | + + | Infection of arteriovenous fistula, subsequent encounter | + + | Diabetes mellitus with ESRD (end-stage renal disease) | + + | Type II or unspecified type diabetes mellitus with renal manifestations, not stated as | | uncontrolled | + + | HTN (hypertension) | + + | Unspecified essential hypertension | + + | Hypothyroidism | + + | Unspecified hypothyroidism | + + | Hyponatremia | + + | Hyposmolality and/or hyponatremia | + + | Metabolic acidosis | + + | Acidosis | + + | Asthma | + + | Unspecified asthma | + + | Anemia in ESRD (end-stage renal disease) (HCC) | + + | Anemia in chronic kidney disease | + + Admitting Diagnoses + + | Diagnosis | + + | End stage renal failure on dialysis (HCC) | + + | End stage renal disease | + + | MRSA infection | + + | Methicillin resistant Staphylococcus aureus in conditions classified elsewhere and of | | unspecified site | + + | Infection of arteriovenous fistula, subsequent encounter | + + | Complication of AV dialysis fistula, initial encounter | + + Administered Medications + +--------+---------+------+------+------+ | Medication Order | MAR | Action | Dose | Rate | Site | | | Action | Date | | | | + +--------+---------+------+------+------+ + +---+ | acetaminophen (TYLENOL) | | | suppository 650 mg 650 mg, | | | Rectal, Every 6 Hours PRN, Mild | | | Pain (1-3), Fever, Starting Mon | | | 07/22/17 at 2100 | | + +---+ | | | + +---+ + +-------+ +--------+---+---+ | acetaminophen (TYLENOL) tablet | Given | | 650 mg | | | | 650 mg 650 mg, Oral, Every 6 | | 8 05:31 | | | | | Hours PRN, Mild Pain (1-3), | | PST | | | | | Fever, Starting 07/22/17 at | | | | | | | 2100 | | | | | | + +-------+ +--------+---+---+ +-------+ +--------+---+---+ | Given | 07/25/2017 | 650 mg | | | | | 00:10 | | | | | | PST | | | | +-------+ +--------+---+---+ +---+---+ | | | +---+---+ + +-------+ +--------+---+---+ | allopurinol (ZYLOPRIM) tablet | Given | | 100 mg | | | | 100 mg 100 mg, Oral, Daily, | | 8 07:41 | | | | | First dose on Sat07/22/17 at 2102 | | PST | | | | + +-------+ +--------+---+---+ +-------+ +--------+---+---+ | Given | | 100 mg | | | | | 8 08:34 | | | | | | PST | | | | +-------+ +--------+---+---+ | Given | 07/25/2017 | 100 mg | | | | | 09:54 | | | | | | PST | | | | +-------+ +--------+---+---+ +---+---+ | | | +---+---+ + +-------+ +-------+---+---+ | amLODIPine (NORVASC) tablet 10 | Given | | 10 mg | | | | mg 10 mg, Oral, Daily, First | | 8 07:42 | | | | | dose on 07/22/17 at 2102 | | PST | | | | + +-------+ +-------+---+---+ +-------+ +-------+---+---+ | Given | | 10 mg | | | | | 8 08:34 | | | | | | PST | | | | +-------+ +-------+---+---+ | Given | 07/25/2017 | 10 mg | | | | | 09:54 | | | | | | PST | | | | +-------+ +-------+---+---+ +---+---+ | | | +---+---+ + +-------+ +---------+---+---+ | budesonide-formoterol | Given | | 2 puffs | | | | (SYMBICORT) 160-4.5 MCG/ACT | | 8 08:33 | | | | | inhaler 2 puff 2 puff, | | PST | | | | | Inhalation, 2 Times Daily, First | | | | | | | dose on Sat07/22/17 at 2102 | | | | | | + +-------+ +---------+---+---+ +-------+ +---------+---+---+ | Given | | 2 puffs | | | | | 8 21:24 | | | | | | PST | | | | +-------+ +---------+---+---+ | Given | 07/25/2017 | 2 puffs | | | | | 09:54 | | | | | | PST | | | | +-------+ +---------+---+---+ +---+---+ | | | +---+---+ + +-------+ + +---+---+ | carvedilol (COREG) tablet 3.125 | Given | | 3.125 mg | | | | mg 3.125 mg, Oral, 2 Times | | 8 07:41 | | | | | Daily With Meals, First dose on | | PST | | | | | 07/23/17 at 0800 | | | | | | + +-------+ + +---+---+ +-------+ + +---+---+ | Given | | 3.125 mg | | | | | 8 16:37 | | | | | | PST | | | | +-------+ + +---+---+ +---+---+ | | | +---+---+ + +-------+ +---------+---+---+ | carvedilol (COREG) tablet 6.25 | Given | | 6.25 mg | | | | mg 6.25 mg, Oral, 2 Times Daily | | 8 08:34 | | | | | With Meals, First dose on Wed | | PST | | | | | 07/24/17 at 0800 | | | | | | + +-------+ +---------+---+---+ +-------+ +---------+---+---+ | Given | 07/25/2017 | 6.25 mg | | | | | 09:54 | | | | | | PST | | | | +-------+ +---------+---+---+ +---+---+ | | | +---+---+ + +-------+ +--------+---+---+ | cholecalciferol (VITAMIN D-3) | Given | | 1,000 | | | | tablet 1,000 Units 1,000 Units, | | 8 07:41 | Units | | | | Oral, Daily, First dose on Mon | | PST | | | | | 07/22/17 at 2102 | | | | | | + +-------+ +--------+---+---+ +-------+ +--------+---+---+ | Given | | 1,000 | | | | | 8 08:34 | Units | | | | | PST | | | | +-------+ +--------+---+---+ | Given | 07/25/2017 | 1,000 | | | | | 09:54 | Units | | | | | PST | | | | +-------+ +--------+---+---+ +---+---+ | | | +---+---+ + +-------+ +-------+---+---+ | famotidine (PEPCID) tablet 20 | Given | | 20 mg | | | | mg 20 mg, Oral, Daily, First | | 8 21:29 | | | | | dose on e 07/23/17 at 2100 | | PST | | | | + +-------+ +-------+---+---+ +-------+ +-------+---+---+ | Given | | 20 mg | | | | | 8 08:34 | | | | | | PST | | | | +-------+ +-------+---+---+ | Given | 07/25/2017 | 20 mg | | | | | 09:54 | | | | | | PST | | | | +-------+ +-------+---+---+ +---+---+ | | | +---+---+ + +-------+ +--------+---+-------+ | heparin (porcine) 1000 unit/mL | Given | | 1,000 | | Other | | injection 1,000 Units 1,000 | | 8 17:22 | Units | | | | Units, Other, Every 1 Hour PRN, | | PST | | | | | HOURLY dose with dialysis only, | | | | | | | Starting 07/24/17 at 1714, For | | | | | | | 6 hours, DIALYSIS | | | | | | + +-------+ +--------+---+-------+ +---+---+ | | | +---+---+ + +-------+ +--------+---+-------+ | heparin (porcine) 1000 unit/mL | Given | | 2,000 | | Other | | injection 2,000 Units 2,000 | | 8 17:22 | Units | | | | Units, Intravenous, Once In | | PST | | | | | Dialysis, 07/24/17 at 1730, | | | | | | | For 1 dose, DIALYSIS | | | | | | + +-------+ +--------+---+-------+ +---+---+ | | | +---+---+ + +-------+ +--------+---+---+ | heparin (porcine) 5000 | Given | | 5,000 | | | | unit/0.5mL injection 5,000 Units | | 8 21:29 | Units | | | | 5,000 Units, Subcutaneous, Every | | PST | | | | | 12 Hours Scheduled (2 times per | | | | | | | day), First dose on Sat07/22/17 | | | | | | | at 2102 | | | | | | + +-------+ +--------+---+---+ +-------+ +--------+---+---+ | Given | | 5,000 | | | | | 8 08:39 | Units | | | | | PST | | | | +-------+ +--------+---+---+ | Given | | 5,000 | | | | | 8 21:24 | Units | | | | | PST | | | | +-------+ +--------+---+---+ + +---+ | | | + +---+ | hydrALAZINE (APRESOLINE) | | | injection 10 mg 10 mg, | | | Intravenous, Every 6 Hours PRN, | | | Hypertension, Starting Tue | | | 07/23/17 at 2014 | | + +---+ | | | + +---+ + +-------+ +---------+---+---+ | insulin lispro (human) | Given | | 1 Units | | | | (HUMALOG) injection 0-10 Units | | 8 06:08 | | | | | 0-10 Units, Subcutaneous, 3 Times | | PST | | | | | Daily Before Meals, First dose | | | | | | | on 07/22/17 at 2102 | | | | | | + +-------+ +---------+---+---+ +-------+ +---------+---+---+ | Given | | 2 Units | | | | | 8 11:45 | | | | | | PST | | | | +-------+ +---------+---+---+ | Given | 07/25/2017 | 1 Units | | | | | 06:14 | | | | | | PST | | | | +-------+ +---------+---+---+ +---+---+ | | | +---+---+ + +-------+ +--------+---+---+ | levothyroxine (SYNTHROID) | Given | | 75 mcg | | | | tablet 75 mcg 75 mcg, Oral, | | 8 05:31 | | | | | Every Morning Before Breakfast, | | PST | | | | | First dose on Sat07/23/17 at 0630 | | | | | | + +-------+ +--------+---+---+ +-------+ +--------+---+---+ | Given | | 75 mcg | | | | | 8 05:52 | | | | | | PST | | | | +-------+ +--------+---+---+ | Given | 07/25/2017 | 75 mcg | | | | | 06:13 | | | | | | PST | | | | +-------+ +--------+---+---+ +---+---+ | | | +---+---+ + + + +---------+---+---+ | lidocaine 1 % injection 0.5 mL | Given by | | 0.5 mLs | | | | 0.5 mL, Intradermal, Daily PRN, | Other | 8 10:58 | | | | | prn before HD needles with | | PST | | | | | dialysis, 0.25ml x 2, Starting | | | | | | | 07/23/17 at 1011, DIALYSIS | | | | | | + + + +---------+---+---+ +---+---+ | | | +---+---+ + +-------+ +---------+---+-------+ | lidocaine 1 % injection 0.5 mL | Given | | 0.5 mLs | | Other | | 0.5 mL, Intradermal, Once, Wed | | 8 16:40 | | | | | 07/24/17 at 1600, For 1 dose | | PST | | | | + +-------+ +---------+---+-------+ +---+---+ | | | +---+---+ + +-------+ +-------+---+---+ | montelukast (SINGULAIR) tablet | Given | | 10 mg | | | | 10 mg 10 mg, Oral, Nightly, | | 8 22:01 | | | | | First dose on 07/22/17 at 2200 | | PST | | | | + +-------+ +-------+---+---+ +-------+ +-------+---+---+ | Given | | 10 mg | | | | | 8 21:29 | | | | | | PST | | | | +-------+ +-------+---+---+ | Given | | 10 mg | | | | | 8 21:26 | | | | | | PST | | | | +-------+ +-------+---+---+ + +---+ | | | + +---+ | ondansetron (ZOFRAN) injection | | | 4 mg 4 mg, Intravenous, Every 6 | | | Hours PRN, Nausea, Vomiting, | | | Starting 07/22/17 at 2100 | | + +---+ | | | + +---+ | ondansetron (ZOFRAN) tablet 4 | | | mg 4 mg, Oral, Every 6 Hours | | | PRN, Nausea, Vomiting, Starting | | | 07/22/17 at 2100 | | + +---+ | | | + +---+ + +-------+ + +---+---+ | sevelamer (RENVELA) tablet | Given | | 2,400 mg | | | | 2,400 mg 2,400 mg, Oral, 3 Times | | 8 21:24 | | | | | Daily With Meals, First dose on | | PST | | | | | 07/22/17 at 2102 | | | | | | + +-------+ + +---+---+ +-------+ + +---+---+ | Given | 07/25/2017 | 2,400 mg | | | | | 09:54 | | | | | | PST | | | | +-------+ + +---+---+ | Given | 07/25/2017 | 2,400 mg | | | | | 11:22 | | | | | | PST | | | | +-------+ + +---+---+ +---+---+ | | | +---+---+ + +-------+ + +---+---+ | sodium bicarbonate tablet 1,300 | Given | | 1,300 mg | | | | mg 1,300 mg, Oral, 2 Times | | 8 22:01 | | | | | Daily, First dose on 07/22/17 | | PST | | | | | at 2102 | | | | | | + +-------+ + +---+---+ +---+---+ | | | +---+---+ + +-------+ + +---+---+ | sodium bicarbonate tablet 1,300 | Given | | 1,300 mg | | | | mg 1,300 mg, Oral, 3 Times | | 8 14:44 | | | | | Daily, First dose on Sat07/23/17 | | PST | | | | | at 0600 | | | | | | + +-------+ + +---+---+ +-------+ + +---+---+ | Given | | 1,300 mg | | | | | 8 21:26 | | | | | | PST | | | | +-------+ + +---+---+ | Given | 07/25/2017 | 1,300 mg | | | | | 06:13 | | | | | | PST | | | | +-------+ + +---+---+ +---+---+ | | | +---+---+ + +-------+ +--------+---+---+ | sodium chloride 0.9 % flush 10 | Given | | 10 mLs | | | | mL 10 mL, Intravenous, Every 8 | | 8 21:32 | | | | | Hours, First dose on 07/22/17 | | PST | | | | | at 1428 | | | | | | + +-------+ +--------+---+---+ +-------+ +--------+---+---+ | Given | | 10 mLs | | | | | 8 14:44 | | | | | | PST | | | | +-------+ +--------+---+---+ +---+---+ | | | +---+---+ + +-------+ + +---+---+ | vancomycin (VANCOCIN) 1000 | Given | | 1,000 mg | | | | mg/250 mL IVPB 1,000 mg, | | 8 21:24 | | | | | Intravenous, Administer over 60 | | PST | | | | | Minutes, See Admin Instructions, | | | | | | | Starting 07/22/17 at 2124, | | | | | | | Administer dose during last hour | | | | | | | or immediately following each | | | | | | | hemodialysis session. Use Rx | | | | | | | button to message [employer] for | | | | | | | dose. | | | | | | + +-------+ + +---+---+ +---+---+ | | | +---+---+ + +-------+ + +---+---+ | vancomycin (VANCOCIN) 1000 | Given | | 1,000 mg | | | | mg/250 mL IVPB 1,000 mg, | | 8 14:03 | | | | | Intravenous, Administer over 60 | | PST | | | | | Minutes, Once, 07/23/17 at | | | | | | | 1130, For 1 dose, Give at the end | | | | | | | of dialysis. | | | | | | + +-------+ + +---+---+ +---+---+ | | | +---+---+ + +---------+ +-------+---+---+ | vancomycin (VANCOCIN) 1500 | New Bag | | 1.5 g | | | | mg/250 mL IVPB 1.5 g, | | 8 18:53 | | | | | Intravenous, Administer over 90 | | PST | | | | | Minutes, Once, 07/22/17 at | | | | | | | 1825, For 1 dose | | | | | | + +---------+ +-------+---+---+ +---+---+ | | | +---+---+ in this encounter
--- OUTSIDE RECORDS SUMMARY | ~2017-10-06 | XMS | Encounter Summary ---
Demographics + + + | Address | [address] | | | [place] [address] | + + + | Home Phone | | + + + | Preferred Language | Unknown | + + + | Marital Status | | + + + | Holiness Affiliation | 1076 | + + + | Race | Unknown | + + + | Ethnic Group | Unknown | + + + Author + + + | Author | [employer] | + + + | Organization | [employer] | + + + | Address [...] Team Providers + +------+ + | Care Vacuum Frame Operator Name | Role | Phone | + +------+ + | Andry Deng MD | PCP | | + +------+ + Reason for Visit +--------+ + | Reason | Comments | +--------+ + | Other | July 2017-[facility] Provider Rounding D[facility] Note | +--------+ + Encounter Details +--------+ + + + + | Date | Type | Department | Care Team | Description | +--------+ + + + + | 08/28/ | Documentati | [facility] | Jayy Christianson MD | Other (July | | 2018 | on Only | Nephrology [address] | [address] | 2018-[facility] Provider | | | | [facility] | [address] [place], [place] | Rounding Dialysis | | | | [place], [place] | [address] | Note) | | | | [address] | | | | | | [phone] | | | +--------+ + + + [...]
--- OUTSIDE RECORDS SUMMARY | ~2017-10-06 | XMS | Encounter Summary ---
Demographics + + + | Address | [address] | | | [place] [address] | + + + | Home Phone | | + + + | Preferred Language | Unknown | + + + | Marital Status | | + + + | Jewish Affiliation | 1076 | + + + | Race | Unknown | + + + | Ethnic Group | Unknown | + + + Author + + + | Author | [employer] | + + + | Organization | [facility] | + + + | Address [...] Team Providers + +------+ + | Care Chief Business Development Officer Name | Role | Phone | + +------+ + | Andry Deng MD | PCP | | + +------+ + Reason for Visit + + + | Reason | Comments | + + + | Vascular Access | swelling to right arm, missed 2 dialysis treatments. | | Problem | | + + + Encounter Details +--------+ + + + + | Date | Type | Department | Care Team | Description | +--------+ + + + + | 10/05/ | Emergency | [facility] | Inocencio Burden | ESRD on hemodialysis | | 2018 | | [facility] | D, DO [address] | ([facility]) (Primary Dx); | | | | Emergency Department | [address] [place], [place] | Cellulitis of right | | | | [address] [facility] | [address] | upper extremity | | | | [place] [address] | | | | | | [phone] | | | +--------+ + + + [...] | Height | - | - | + + + + | Body Mass Index | 28.38 | 10/05/2017 12:42 PM PDT | + + + + in this encounter Discharge Instructions Inocencio Burden, DO - 10/05/2017Make sure to go to dialysis Saturday as scheduled. The following attachments cannot be sent through Care Everywhere.Chronic Kidney Disease (CK D) (Guatemalan)Cellulitis, Discharge Instructions for (Guatemalan)in this encounter Medications at Time of Discharge [...] +---------+ + + as of this encounter Plan of Treatment + +--------+ + + | Name | Priori | Associated Diagnoses | Date/Time | | | ty | | | + +--------+ + + | Blood Culture Set 2 | STAT | | 10/05/2017 2:53 PM | | | | | PDT | + +--------+ + + | Blood Culture Set 1 | STAT | | 10/05/2017 2:02 PM | | | | | PDT | + +--------+ + + | EKG | Routin | | 10/05/2017 2:02 PM | | | e | | PDT | + +--------+ + + + +--------+ + + | Name | Priori | Associated Diagnoses | Order Schedule | | | ty | | | + +--------+ + + | Blood Culture Set 2 | STAT | | STAT for 1 | | | | | Occurrences starting | | | | | 10/05/2017 until | | | | | 10/05/2017 | + +--------+ + + | Blood Culture Set 1 | STAT | | STAT for 1 | | | | | Occurrences starting | | | | | 10/05/2017 until | | | | | 10/05/2017 | + +--------+ + + as of this encounter Results US upper extremity venous right (10/05/2017 2:52 PM) + + + | Specimen | Performing Laboratory | + + + | | [address] [address] | + + + + + | Impressions | + + | 1. No evidence of DVT. | | 3:00 PM | + + + + | Narrative | + + | ENRIQUE STANTON 1965 US UPPER EXTREMITY VENOUS DOPPLER [...] In - 10/05/2017 3:05 PM PDT ENRIQUE Fuller [id number] UPPER EXTREMITY | | VENOUS DOPPLER [...] | | | | | + + Troponin I, Lab (10/05/2017 2:02 [...] | CONSISTENT WITH WHO CRITERIA FOR ACUTE [place] | | | | Testing performed at [facility] [place] [facility] | | | | [facility];[place] [address] | | | | | | | |Testing performed at [facility] [place] [place];[place] [address] | | | | | | + + + + + + + | Specimen | Performing Laboratory | + + + | Blood | [facility] [address] [address] | + + + Cardiac Panel (10/05/2017 2:02 PM) [...] >4.0Testing | | | | performed at [facility] [place] [place] [address];[place] | | | | [address] | | | | | | + + +------ + + + + | Specimen | Performing Laboratory | + + + | | [address] [place] [address] | + + + ED INFORMATION EXCHANGE (10/05/2017 12:35 PM) + + + | Specimen | Performing Laboratory | + + + | | ED INFORMATION EXCHANGE | + + + + + | Narrative | + + | [id number]:32MYRON [id number] This patient has registered at the [facility] | [facility] Emergency Department For more information visit: | | [email or web address] Security | | Events No recent Security Events currently on file ED Care Guidelines There are | | currently no ED Care Guidelines in DECLAN for this patient. Please check your facility's | | medical records system. Recent Emergency Department Visit Summary Admit Date Facility | | City State Type Major Type Diagnoses or Chief Complaint Oct 05, 2017 [facility] | | [place] Emergency Emergency Aug 30, [address] [facility] [address] 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 Visit Count (12 mo.) Facility Visits Low Acuity [facility] | [facility] 4 0 [facility] 8 0 Total 12 0 Note: Visits indicate | | total known visits. Medicaid Low Acuity Dx are the number of primary diagnoses on the | | Medicaid's Low Acuity dx list. Recent Inpatient Visit Summary Admit Date | | Facility City State Type Major Type Diagnoses or Chief Complaint Jul 22, 2017 [facility] | | [facility] Inpatient Referral Skin | | [...] the aforementioned facilities for additional information. 2018 [employer] | | [employer]. - [place], [place] - [email or web address] | + + + + | Procedure Note | + + | Interface, Lab - 10/05/2017 12:36 PM PDT Formatting of this note may be different | | from the original.EDIE12:32MYRON [id number] patient has registered at the [facility] | | [facility] Emergency Department For more information visit: | | [email or web address] Security | | EventsNo recent Security Events currently on fileED Care GuidelinesThere are currently | | no ED Care Guidelines in DECLAN for this patient. Please check your facility's medical | | records system.Recent Emergency Department Visit SummaryAdmit Date Facility City State | | Type Major Type Diagnoses or Chief Complaint Oct 05, 2017 [facility] [place] | | Emergency Emergency Aug 30, 2017 [facility] [place] Emergency Emergency | | Ocular pain, right eye Allergy status to penicillin Type 2 diabetes mellitus | | without complications Atherosclerotic heart disease of [place] coronary artery without | | angina pectoris Hypothyroidism, unspecified Hypertensive chronic kidney disease | | with stage 5 chronic kidney disease or end stage renal disease Other group home | | (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 Allergy status to other drugs, medicaments and biological | | substances status End stage renal disease Dependence on renal dialysis Jul 22 | | 2017 [facility] Skin Complaint Referral | | E.D. Visit Count (12 mo.)Facility Visits Low Acuity [facility] 4 0 | | [facility] 8 0 Total 12 0 Note: Visits indicate total known visits. | | Medicaid Low Acuity Dx are the number of primary diagnoses on the Medicaid's Low Acuity | | dx list. Recent Inpatient Visit SummaryAdmit Date Facility [facility] State Type Major Type | | Diagnoses or Chief Complaint Jul 22, 2017 [facility] [place] General | | Medicine Inpatient Referral Skin [...] ReportPDMP | | query found no report.[facility] has no care providers on record at [...] facilities for | | additional information. 2018 [employer]. - [place], [place] | | - [email or web address] | |[facility] 4 0 | |[facility] 8 0 | |Total 12 0 | |Note: Visits indicate total known visits. Medicaid Low Acuity Dx are the number of primary diagnoses on the Medicaid's Low Acuity dx list. | | | |Recent Inpatient Visit Summary | |Admit Date Facility [facility] State Type Major Type Diagnoses or Chief Complaint | |Jul 22, 2017 [facility] [place]. [place] General Medicine Inpatient | | Referral | [...] aforementioned facilities for additional information. | |2018 [employer]. - [place], [place] - [email or web address] | + + in this encounter Visit Diagnoses + + | Diagnosis | + + | ESRD on hemodialysis (HCC) - Primary | + + | End stage renal disease | + + | Cellulitis of right upper extremity | + + | Cellulitis and abscess of upper arm and forearm | + + Admitting Diagnoses + + | Diagnosis | + + | ESRD on hemodialysis (HCC) | + + | End stage renal disease | + + | Cellulitis of right upper extremity | + + | Cellulitis and abscess of upper arm and forearm | + + Administered Medications + +---------+ +------+-------+------+ | Medication Order | MAR | Action | Dose | Rate | Site | | | Action | Date | | | | + +---------+ +------+-------+------+ | cefTAZidime (FORTAZ) 1 g in | New Bag | | 1 g | 100 | | | sodium chloride (IV) 0.9 % 50 mL | | 8 17:32 | | mL/hr | | | IVPB 1 g, Intravenous, | | PDT | | | | | Administer over 30 Minutes, Once, | | | | | | | 10/05/17 at 1652, For 1 dose | | | | | | + +---------+ +------+-------+------+ + +---+ | | | + +---+ | sodium chloride 0.9 % flush 10 | | | mL 10 mL, Intravenous, Every 8 | | | Hours, First dose on 10/05/17 | | | at 1310 | | + +---+ | | | + +---+ | sodium chloride 0.9 % flush 10 | | | mL 10 mL, Intravenous, Every 8 | | | Hours, First dose on 10/05/17 | | | at 1321 | | + +---+ | | | + +---+ + +---------+ + +---+---+ | vancomycin (VANCOCIN) 1250 | New Bag | | 1,250 mg | | | | mg/250 mL IVPB 1,250 mg (rounded | | 8 15:10 | | | | | from 1,233 mg = 15 mg/kg | | PDT | | | | | 82.2 kg), Intravenous, | | | | | | | Administer over 90 Minutes, Once, | | | | | | | 10/05/17 at 1400, For 1 dose | | | | | | + +---------+ + +---+---+ +---+---+ | | | +---+---+ in this encounter"
--- OUTSIDE RECORDS SUMMARY | ~2017-10-06 | XMS | Encounter Summary ---
Demographics + + + | Address | [address] | | | [place] [address] | + + + | Home Phone | | + + + | Preferred Language | Unknown | + + + | Marital Status | | + + + | Uatsdin Affiliation | 1076 | + + + | Race | Unknown | + + + | Ethnic Group | Unknown | + + + Author + + + | Author | [employer] | + + + | Organization | [facility] | + + + | Address [...] Team Providers + +------+ + | Care Shank Pinner Name | Role | Phone | + [...] + + | 10/05/ | Emergency | [facility] | Inocencio Burden | ESRD on hemodialysis | | 2018 | | [facility] | D, DO [address] | ([facility]) (Primary Dx); | | | | Emergency Department | [address] [place], [place] | Cellulitis of right | | | | [address] [facility] | [address] | upper extremity | | | | [place] [address] | | | | | | [phone] | | | +--------+ + + + [...] through Care Everywhere.Chronic Kidney Disease (CK D) (Haitian)Cellulitis, Discharge Instructions for (Haitian)in this encounter Medications at Time of Discharge [...] Laboratory | + + + | | [address] [address] | + + + + + | [...] | CONSISTENT WITH WHO CRITERIA FOR ACUTE [place] | | | | Testing performed at [facility];[address] [facility] | | | | [facility];[place] [address] | | | | | | | |Testing performed at [facility];[address] [facility] [address] | | | | | | + + + + + + + | Specimen | Performing Laboratory | + + + | Blood | [facility] [address] [place] [address] | + + + Cardiac Panel (10/05/2017 [...] >4.0Testing | | | | performed at [facility];[address] [place] [address];[place] | | | | [address] | | | | | | + + +------ + + + + | Specimen | Performing Laboratory | + + + | | [address] [place] [address] | + + + ED INFORMATION EXCHANGE (10/05/2017 12:35 PM) + + + | Specimen | Performing Laboratory | + + + | | ED INFORMATION EXCHANGE | + + + + + | Narrative | + + | [id number]:32MYRON [id number] This patient has registered at the [facility] | [facility] Emergency Department For more information visit: | | [email or web address] Security | | Events No recent Security Events currently on file ED Care Guidelines There are | | currently no ED Care Guidelines in DECLAN for this patient. Please check your facility's | | medical records system. Recent Emergency Department Visit Summary Admit Date Facility | | City State Type Major Type Diagnoses or Chief Complaint Oct 05, 2017 [facility] | | [place] Emergency Emergency Aug 30, [address] 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 | | [facility] [place] Emergency Emergency Skin Complaint Referral | | E.D. Visit Count (12 mo.) Facility Visits Low Acuity [facility] | [facility] 4 0 [facility] 8 0 Total 12 0 Note: Visits indicate | | total known visits. Medicaid Low Acuity Dx are the number of primary diagnoses on the | | Medicaid's Low Acuity dx list. Recent Inpatient Visit Summary Admit Date | | Facility City State Type Major Type Diagnoses or Chief Complaint Jul 22, 2017 [facility] | | [facility] Inpatient Referral Skin [...] the aforementioned facilities for additional information. 2018 [email or web address] | | [employer] - [place], [place] - [email or web address] | + + + + | Procedure Note | + + | Interface, Lab - 10/05/2017 12:36 PM PDT Formatting of this note may be different | | from the original.EDIE12:32MYRON [id number] patient has registered at the [facility] | | [facility] Emergency Department For more information visit: | | [email or web address] Security | | EventsNo recent Security Events currently on fileED Care GuidelinesThere are currently | | no ED Care Guidelines in DECLAN for this patient. 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 Visit Count (12 mo.)Facility Visits [facility]uity [facility] 4 0 | | [facility] 8 0 Total 12 0 Note: Visits indicate total known visits. | | Medicaid Low Acuity Dx are the number of primary diagnoses on the Medicaid's Low Acuity | | dx list. Recent Inpatient Visit SummaryAdmit Date Facility [facility] State Type Major Type | | Diagnoses or Chief Complaint Jul 22, 2017 [facility] [place] General | | Medicine Inpatient Referral Skin [...] ReportPDMP | | query found no report.[facility] has no care providers on record [...] facilities for | | additional information. 2018 [employer]. - [place], [place] | | - [email or web address] | |[facility] 4 0 | |[facility] 8 0 | |Total 12 0 | |Note: Visits indicate total known visits. Medicaid Low Acuity Dx are the number of primary diagnoses on the Medicaid's Low Acuity dx list. | | | |Recent Inpatient Visit Summary | |Admit Date Facility [facility] State Type Major Type Diagnoses or Chief Complaint | |Jul 22, 2017 [facility] [place]. [place] General Medicine Inpatient | | Referral | [...] aforementioned facilities for additional information. | |2018 [employer]. - [place], [place] - [email or web address] | + + in this encounter Visit [...]
--- OUTSIDE RECORDS SUMMARY | ~2017-10-06 | XMS | Encounter Summary ---
Demographics + + + | Address | [address] | | | [place] [address] | + + + | Home Phone | | + + + | Preferred Language | Unknown | + + + | Marital Status | | + + + | Taoism Affiliation | 1076 | + + + | Race | Unknown | + + + | Ethnic Group | Unknown | + + + Author + + + | Author | [email or web address] | + + + | Organization | [facility] | + + + | Address [...] Team Providers + +------+ + | Care Parts Sales Associate Name | Role | Phone | + +------+ + | Andry Deng MD | PCP | | + +------+ + Reason for Visit +--------+ + | Reason | Comments | +--------+ + | Other | June 2017-[facility] Provider Rounding Dialysis Note | +--------+ + Encounter Details +--------+ + + + + | Date | Type | Department | Care Team | Description | +--------+ + + + + | 07/29/ | Documentati | [facility] | Jayy Christianson MD | Other (June | | 2017 | on Only | Nephrology [address] | 2018-[facility] Provider | | | | [facility] | [address] [place], [place] | Rounding Dialysis | | | | [place], [place] | [address] | Note) | | | | [address] | | | | | | [phone] | | | +--------+ + + + [...]
--- OUTSIDE RECORDS SUMMARY | ~2017-10-06 | XMS | Clinical Summary ---
Demographics + + + | Address | [address] | | | [place] [address] | + + + | Home Phone | | + + + | Preferred Language | Unknown | + + + | Marital Status | | + + + | Restoration Affiliation | 1076 | + + + | Race | Unknown | + + + | Ethnic Group | Unknown | + + + Author + + + | Author | [employer] | + + + | Organization | [employer] | + + + | Address [...] Team Providers + +------+ + | Care Interactive Web Developer Name | Role | Phone [...] | | | | | dialysis ([facility]) | | | | | [...] | | | | | dialysis ([facility]) | | | | | [...] ready for discharge from the | | residential facility next week. | + + + [...] + | 10/05/ | Emergency | | Inocecnio Burden | ESRD on hemodialysis | | 2017 | | | DO Onelia | ([facility]) (Primary Dx); | | | | | | Cellulitis of right | | | | | | upper extremity | +--------+ + + + + | 08/28/ | Documentati | | Jayy Christianson MD | Other (July | on Only | | | 2018[facility] Provider | | | | | | [...] | | | | | | ([facility]); Infection of | | | [...] | | | 5 | | | 01/[birth year]/51749 | | | 0 | | | [...] | | | [place] | | | [phone] | | | [phone] | | | ule an | | | appointment | | | as soon as | | | possible | | | for a visit | | | in 1 | | | weekpost | | | hospital | | | follow | | | [facility]ex | | | [place], | | | [id number] | | | [place] | | | d | | | [place] | | | n [place] | | | [phone] | | | [phone] | | | [...] | | | [place] | | | [address] | | | Phone: | | | [phone] | | | 5 | | | [...] + | Mother | | | from [place] | | | | (Age | | [...] Stent | Right: | | | | [id number] | | 40-09[birth year]11[birth year]2016Implanted: | | | | | | / | | 09/11/2016 by Jimenez Garnica, | | Subcla | | | | /[id number] | | PhD (Quantity not on | | vian | | | | 669 | | file) | | | | | | | + +-------+--------+ +--------+--------+--------+ | Zilver 14 X | Stent | Right: | | | | [id number] | | 60-09/11/2016Implanted: | | | | | | / | | 09/11/2016 by Jimenez Garnica, | | Subcla | | | | /[id number] | | PhD (Quantity not on | | vian | | | | 524 | | file) | | | | | | | + +-------+--------+ +--------+--------+--------+ | Hemodialysis Catheter 12x20 | | Left: | | | 10/05/ | [id number] | | Curved - Sn/AImplanted: Qty: | [...] | Left: | | | 02/22/ | [id number] | | Pre Cvd Curator Std | | Neck | | | 2012 | 0 | | Hemosplit 14.5 24cm - | | | | | | /[id number] | | [id number]: Qty: 1 on | | | | [...] Laboratory | + + + | | [address] [place] [address] | + + + + + | [...] >4.0Testing | | | | performed at [facility];[address] [place] [address];[place], [place] | | | | [address] | | | | | | + + +------ + + + + | Specimen | Performing Laboratory | + + + | | [facility] [address] [place] [address] | + + + Troponin I, Lab [...] | CONSISTENT WITH WHO CRITERIA FOR ACUTE [place] | | | | Testing performed at [facility];[address] | | | | [facility];[place] [address] | | | | | | | |Testing performed at [facility];[address] [place] [address];[place] [address] | | | | | | + + + + + + + | Specimen | Performing Laboratory | + + + | Blood | [facility] [address] [place] [address] | + + + ED INFORMATION EXCHANGE (10/05/2017 12:35 PM)Only the most recent of 2 results within the period is included. + + + | Specimen | Performing Laboratory | + + + | | ED INFORMATION EXCHANGE | + + + + + | Narrative | + + | [id number] This patient has registered at the [facility] Emergency Department For more information visit: | | [email or web address] Security | | Events No recent Security Events currently on file ED Care Guidelines There are | | currently no ED Care Guidelines in DECLAN for this patient. Please check your facility's | | medical records system. 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 Visit Count (12 mo.) Facility Visits Low Acuity [facility] | [facility] [address] [facility] 8 0 Total 12 0 Note: Visits indicate | | total known visits. Medicaid Low Acuity Dx are the number of primary diagnoses on the | | Medicaid's Low Acuity dx list. Recent Inpatient Visit Summary Admit Date | | Facility City State Type Major Type Diagnoses or Chief Complaint Jul 22, 2017 [facility] | | [facility] Inpatient Referral Skin | [...] the aforementioned facilities for additional information. 2018 [employer] | | [employer] - [place], [place] - [email or web address] | + + + + | Procedure Note | + + | Interface, Lab - 10/05/2017 12:36 PM PDT Formatting of this note may be different | | from the original.[id number] [id number] patient has registered at the [facility] | | [facility] Emergency Department For more information visit: | | [email or web address] Security | | EventsNo recent Security Events currently on fileED Care GuidelinesThere are currently | | no ED Care Guidelines in DECLAN for this patient. Please check your facility's medical | | records system.Recent Emergency Department Visit SummaryAdmit Date Facility City State | | Type Major Type Diagnoses or Chief Complaint Oct 05, 2017 [facility] [place] | | [facility] [place] [facility] | | Ocular pain, right eye Allergy status to penicillin Type 2 diabetes mellitus | | without complications Atherosclerotic heart disease of sycuan coronary artery without | | angina pectoris Hypothyroidism, unspecified Hypertensive chronic kidney disease | | with stage 5 chronic kidney disease or end stage renal disease Other rat exterminator | | (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 Allergy status to other drugs, medicaments and biological | | substances status End stage renal disease Dependence on renal dialysis Jul 22, | | 2018 [facility] Emergency Emergency Skin Complaint Referral | | E.D. Visit Count (12 mo.)Facility Visits Low Acuity [facility] 4 0 | | [facility] 8 0 Total 12 0 Note: Visits indicate total known visits. | | Medicaid Low Acuity Dx are the number of primary diagnoses on the Medicaid's Low Acuity | | dx list. Recent Inpatient Visit SummaryAdmit Date Facility [facility] State Type Major Type | | Diagnoses or Chief Complaint Jul 22, 2017 [facility] General | | Medicine Inpatient Referral Skin [...] ReportPDMP | | query found no report.Care [facility] has no care providers on record [...] facilities for | | additional information. 2018 [employer] - [place] | | - [email or web address] | |[facility] 4 0 | |[facility] 8 0 | |Total 12 0 | |Note: Visits indicate total known visits. Medicaid Low Acuity Dx are the number of primary diagnoses on the Medicaid's Low Acuity dx list. | | | |Recent Inpatient Visit Summary | |Admit Date Facility City State Type Major Type Diagnoses or Chief Complaint | |Jul 22, 2017 [facility] [place] General Medicine Inpatient | | Referral | [...] aforementioned facilities for additional information. | |2018 [employer] - [place], [place] - [email or web address] | + + POCT glucose (07/25/2017 11:14 AM)Only the most recent of 10 results within the time period is included. + + + + | Component | Value | Ref Range | + + + + | GLUCOSE,POC SCREEN | 117 (H)Comment: Testing performed at | 65 - 99 mg/dL | | | [facility];[email or web address];[place] [address] | | + + + + + + + | Specimen | Performing Laboratory | + + + | | [facility] [address] [facility] [place] [address] | + + + CBC w/auto diff [...] BASOPHILS ABS | 0.06Comment: Testing performed at [facility], [address] | 0.00 - 0.10 K/uL | | | [place] [address] | | + + + + + + + | Specimen | Performing Laboratory | + + + | Blood | [facility] [address] [place], | | | [place] [address] | + + + Renal function panel [...] | | | | 1.210.Testing performed at [facility], [address] | | | | [place] [address] | | | | | | + + + + + + + | Specimen | Performing Laboratory | + + + | | [facility] [address] [place], | | | [place] [address] | + + + Urinalysis (reflex to micro/reflex to culture) (07/24/2017 11:35 PM) + + + + | Component | Value | Ref Range | + + + + | COLOR UA | YELLOW | | + + + + | CLARITY | HAZY | | + + + + | Specific [place], UA | 1.012 | 1.002 - 1.030 [...] AMORPHOUS CRYSTAL | 1+Comment: Testing performed at [facility] | | | | [address] [employer];[place] [address] | | + + + + + + + | Specimen | Performing Laboratory | + + + | Urine, Unspecified | [facility] [address] [facility] [place] [address] | | Source | | + + [...] | MAGNESIUM | 2.4Comment: Testing performed at [facility], [address] | 1.7 - 2.4 mg/dL | | | [place] [address] | | + + + + + + + | Specimen | Performing Laboratory | + + + | Blood | [facility] [address] [place] [address] [place], | | | [place] [address] | + + + Hepatitis panel, Chronic [...] Testing | | | | performed at [facility], [address], | | | | [place] [address] | | + + + + + + + | Specimen | Performing Laboratory | + + + | | [place] [facility] [address] [place], | | | [place] [address] | + + + US upper extremity right soft tissue (07/22/2017 9:44 PM) + + + | Specimen | Performing Laboratory | + + + | | [facility] [address] [facility] [place] [address] | + + + + + | [...] + + | Blood - Blood | [facility] [address] [place], | | | [place] [address] | + + + MRSA by PCR (07/22/2017 9:22 PM) + + + + | Component | Value | Ref Range | + + + + | SOURCE | NARES(NOSE) | | + + + + | MRSA PCR | POSITIVE for MRSA by PCR (A)Comment: | NEGATIVE | | | Testing performed at [facility];[address] [place] [address] | | | | [place] [address] | | + + + + + + + | Specimen | Performing Laboratory | + + + | Nasopharyngeal - | [address] [address] | | Nares(Nose) | | + + [...] + + | Blood - Blood, | [facility] [address] [place], | | peripheral draw | [place] [address] | + + + Sedimentation Rate (ESR) (07/22/2017 2:40 PM) + + + + | Component | Value | Ref Range | + + + + | ESR | 13Comment: Testing performed at [facility];[address] | 0 - 20 mm/Hr | | | [place] [address] | | + + + + + + + | Specimen | Performing Laboratory | + + + | Blood | [facility] [address] [place] [address] | + + + C-Reactive Protein (07/22/2017 2:40 PM) + + + + | Component | Value | Ref Range | + + + + | CRP | 1.3 (H)Comment: Testing performed at | <0.5 mg/dL | | | [facility];[address] [facility];[place] [address] | | + + + + + + + | Specimen | Performing Laboratory | + + + | Blood | [facility] [address] [facility] [place] [address] | + + + Lactic acid (07/22/2017 2:30 PM) + + + + | Component | Value | Ref Range | + + + + | LACTIC ACID | 1.0Comment: Testing performed at [facility] | 0.4 - 2.0 mmol/L | | | [facility];[place] [address] | | + + + + + + + | Specimen | Performing Laboratory | + + + | Blood | [facility] [address] [place] [address] | + + + Comprehensive metabolic panel [...] | | | | 1.210.Testing performed at [facility];[address] [place] [address] | | | | [facility];[place] [address] | | | | | | + + + + + + + | Specimen | Performing Laboratory | + + + | Blood | [facility] [address] [place] [address] | + + + from Last 3 [...] | xxxxxxxxxx | | | [address] | | | RE | | | | [place] [address] | | | IP-OP | | | | | + +--------+ +------+-------+ + | MEDICAID | MEDICA | xxxxxxxx | | | [address] | | | ID | | | | [place] | | | [place] | | | | [address] | + +--------+ +------+-------+ + | [facility] | YELLOW | xxxxxxxxx | | [...] | Self [birth year] Home: | [address] | | | al/Fam | | 1965 | [phone] | [place] | | | juan | | | [phone] | [address] | + +--------+ +--------+ + +
--- OUTSIDE RECORDS SUMMARY | ~2017-10-06 | XMS | Encounter Summary ---
Demographics + + + | Address | [address] | | | [place] [address] | + + + | Home Phone | | + + + | Preferred Language | Unknown | + + + | Marital Status | | + + + | Adventism Affiliation | 1076 | + + + | Race | Unknown | + + + | Ethnic Group | Unknown | + + + Author + + + | Author | [employer]io | + + + | Organization | [employer] | + + + | Address [...] Team Providers + +------+ + | Care Soldering Machine Feeder Name | Role | Phone | [...] + + | 08/28/ | Documentati | [facility] | Jayy Christianson MD | Other (July | | 2018 | on Only | Nephrology [address] | [address] | 2018-[facility] Provider | | | | [facility] | [address] [place], [place] | [facility] | | | | [place], [place] | [address] | Note) | | | | [address] | | | | | | [phone] | | | +--------+ + + + [...]
--- OUTSIDE RECORDS SUMMARY | ~2017-10-06 | XMS | Encounter Summary ---
Demographics + + + | Address | [address] | | | [place] [address] | + + + | Home Phone | | + + + | Preferred Language | Unknown | + + + | Marital Status | | + + + | Mormon Affiliation | 1076 | + + + | Race | Unknown | + + + | Ethnic Group | Unknown | + + + Author + + + | Author | [employer] | + + + | Organization | [email or web address] | + + + | Address [...] Team Providers + +------+ + | Care Video System Repairer Name | Role | Phone | [...] + + | 07/29/ | Documentati | [facility] | Jayy Christianson MD | Other (June | | 2017 | on Only | Nephrology [address] | [address] | 2018-[facility] Provider | | | | [facility] | [address] [place], [place] | [facility] | | | | [place], [place] | [address] | Note) | | | | [address] | | | | | | [phone] | | | +--------+ + + + [...]
--- OUTSIDE RECORDS SUMMARY | ~2017-10-06 | XMS | Encounter Summary ---
Demographics + + + | Address | [address] | | | [place] [address] | + + + | Home Phone | | + + + | Preferred Language | Unknown | + + + | Marital Status | | + + + | Evangelical Affiliation | 1076 | + + + | Race | Unknown | + + + | Ethnic Group | Unknown | + + + Author + + + | Author | [employer] | + + + | Organization | [employer] | + + + | Address [...] Team Providers + +------+ + | Care Furnace Unloader Name | Role | Phone | [...] | | | Internal | | | [facility] 7th | | | | Medicine | | | [address] | | | | | | | [address] | | | | | | | [place] | | | | | | | [place] | | | | | | | [address] Phone: | | | | | | | [phone] | +--------+--------+ + + + + Encounter Details +--------+ + + + + | Date | Type | Department | Care Team | Description | +--------+ + + + + | 07/22/ | Hospital | [facility] | Huan Martínez, | MRSA infection | | 2018 - | Encounter | [facility] 7th | DO [address] | (Primary Dx); | | | | [facility] | EMERGENCY | Complication of AV | | 07/25/ | | [address] | DEPARTMENT | dialysis fistula, | | 2017 | | [place] [address] | [place] [address] | initial encounter; | | | | [phone] | [phone] | End stage renal | | | | | | failure on dialysis | | | | | Vaishnavi Edward MD | ([facility]); Infection of | | | | | [address] | arteriovenous | | | | | [place] [address] | fistula, subsequent | | | | | Albino Altamirano MD | encounter | | | | | [address] | | | | | | [place] [address] | | | | | | [phone] | | | | | | | [...] note may be different from stefanie ramires. [facility] Service: Hospitalist Discharge Summary Date [...] Site) Follow up: Juana Kwok MD [address] [place] [address] [address] Schedule an appointment as soon as possible for a visit in 1 week post hospital [place] [address] [facility] [address] Medication List CHANGE how you take these [...] These medications were sent to [facility] [place] [facility] [address] [facility] [address] carvedilol 3.125 MG tablet Discharge took 35 minutes, to include final examination, discussion of admission, and prepa ration of prescriptions, instructions for on-going care, follow-up and documentation of disc harge summary. Dictation and laborer brush clearing or software, Dragon, used which may contain error for similar s ounding words even after review. Personal communication requested for any clarification. ALBINO ALTAMIRANO MD 07/25/2017 9:18 AM in this [...] note may be different from mariela original. [facility] Service: Nephrology Progress Note Hospital [...] fistula Admitted with: same. Recommendations: No acute BANNER PAINTER indication Plan it for outpt MWF schedule Prot suppl stressed IV Vanco 1g MWF x4 more doses in the dialysis outpt setting I discussed with the primary team the case at the time of this encounter. JUANA KWOK MD 07/25/2017Albino Altamirano MD - 07/24/2017 11:30 AM PSTFormatting of this note may be differen t from the original. [facility] Service: Hospitalist Progress Note Hospital [...] Inpatient. Code Status: Full Code Dictation and laborer brush clearing or software, Softfront, used which may contain error for similar s ounding words even after review. Personal communication requested for any clarification. ALBINO ALTAMIRANO MD 07/24/2017 11:30 AM Reba Roldan [facility] - 07/24/2017 8:55 AM PSTVancomycin Monitoring Day [...] protocol 07/24/2017 8:51 AM Pharmacist: Ambika Roque [facility] - 07/23/2017 8:24 PM PSTHD patient so famotidin e 20mg po changed to once dailyCamilo Samson RN - 07/23/2017 6:14 PM PSTPt received HD wi th 1L taken off. No acutre changes this shift. Camilo Samson, Albino Austin MD - 07/23/2017 2:36 PM PSTFormatting of this note may be different from t he original. [facility] Service: Hospitalist Progress Note Hospital [...] Inpatient. Code Status: Full Code Dictation and laborer brush clearing or software, Softfront, used which may contain error for similar s ounding words even after review. Personal communication requested for any clarification. ALBINO ALTAMIRANO MD 07/23/2017 2:36 PM Shira Werner RN - 07/23/2017 8:56 AM PSTInfection Prevention Note: Pt with a nasal PCR positive for MRSA. Contact Isolation precautions required for this hosp italization . Thank you! Shira Werner RN, BSN, [facility] Infection Control Coord [phone] in this encounter Plan of Treatment Not [...] 65 - 99 mg/dL | | | [facility];[address] [facility];[place] [address] | | + + + + + + + | Specimen | Performing Laboratory | + + + | | [facility] [address] [place] [address] | + + + Renal function panel [...] | | | | 1.210.Testing performed at [facility], [address] | | | | [facility] [place] [address] | | | | | | + + + + + + + | Specimen | Performing Laboratory | + + + | | [facility] [address] [place], [place] [address], | | | [place] [address] | + + + CBC w/auto diff [...] BASOPHILS ABS | 0.06Comment: Testing performed at [facility], [facility] | 0.00 - 0.10 K/uL | | | [place] [address] | | + + + + + + + | Specimen | Performing Laboratory | + + + | Blood | [address] [place], | | | [place] [address] | + + + POCT glucose (07/25/2017 5:37 AM) + + + + | Component | Value | Ref Range | + + + + | GLUCOSE,POC SCREEN | 121 (H)Comment: Testing performed at | 65 - 99 mg/dL | | | [address] [facility];[place] [address] | | + + + + + + + | Specimen | Performing Laboratory | + + + | | [facility] [address] [place] [address] | + + + Urinalysis (reflex to micro/reflex to culture) (07/24/2017 11:35 PM) + + + + | Component | Value | Ref Range | + + + + | COLOR UA | YELLOW | | + + + + | CLARITY | HAZY | | + + + + | Specific [place], UA | 1.012 | 1.002 - 1.030 [...] AMORPHOUS CRYSTAL | 1+Comment: Testing performed at [facility];[address] | | | | [place] [address] | | + + + + + + + | Specimen | Performing Laboratory | + + + | Urine, Unspecified | [facility] [address] [facility] [place] [address] | | Source | | + + + POCT glucose (07/24/2017 9:35 PM) + + + + | Component | Value | Ref Range | + + + + | GLUCOSE,POC SCREEN | 195 (H)Comment: Testing performed at | 65 - 99 mg/dL | | | [facility];[address];[place] [address] | | + + + + + + + | Specimen | Performing Laboratory | + + + | | [facility] [address] [place] [address] | + + + HEMODIALYSIS INPATIENT (07/24/2017 [...] 65 - 99 mg/dL | | | [facility];[address] [facility];[place] [address] | | + + + + + + + | Specimen | Performing Laboratory | + + + | | [facility] [address] [facility] [place] [address] | + + + POCT glucose (07/24/2017 11:28 AM) + + + + | Component | Value | Ref Range | + + + + | GLUCOSE,POC SCREEN | 176 (H)Comment: Testing performed at | 65 - 99 mg/dL | | | [facility];[address] [facility];[place] [address] | | + + + + + + + | Specimen | Performing Laboratory | + + + | | [facility] [address] [facility] [place] [address] | + + + POCT glucose (07/24/2017 5:18 AM) + + + + | Component | Value | Ref Range | + + + + | GLUCOSE,POC SCREEN | 100 (H)Comment: Testing performed at | 65 - 99 mg/dL | | | [facility];[address] [facility];[place] [address] | | + + + + + + + | Specimen | Performing Laboratory | + + + | | [place] [address] [address] [place] [address] | + + + Renal function panel [...] | | | | 1.210.Testing performed at [facility], [address] | | | | [place] [address] | | | | | | + + + + + + + | Specimen | Performing Laboratory | + + + | | [facility] [address] [place], [place] [address]vd. [place], | | | [place] [address] | + + + CBC w/auto diff [...] BASOPHILS ABS | 0.07Comment: Testing performed at [facility], [facility] | 0.00 - 0.10 K/uL | | | [place] [address] | | + + + + + + + | Specimen | Performing Laboratory | + + + | Blood | [facility] [address] [place], | | | [place] [address] | + + + Magnesium (07/24/2017 4:30 AM) + + + + | Component | Value | Ref Range | + + + + | MAGNESIUM | 2.4Comment: Testing performed at [facility], [address] | 1.7 - 2.4 mg/dL | | | [place] [address] | | + + + + + + + | Specimen | Performing Laboratory | + + + | Blood | [facility] [address] [place] [address] [place] [place], | | | [place] [address] | + + + POCT glucose (07/23/2017 9:31 PM) + + + + | Component | Value | Ref Range | + + + + | GLUCOSE,POC SCREEN | 136 (H)Comment: Testing performed at | 65 - 99 mg/dL | | | [facility];[address] [facility] [place] [address] | | + + + + + + + | Specimen | Performing Laboratory | + + + | | [facility] [address] [facility] [place] [address] | + + + POCT glucose (07/23/2017 4:24 PM) + + + + | Component | Value | Ref Range | + + + + | GLUCOSE,POC SCREEN | 111 (H)Comment: Testing performed at | 65 - 99 mg/dL | | | [facility];[address] [facility];[place] [address] | | + + + + + + + | Specimen | Performing Laboratory | + + + | | [facility] [place] [address] | + + + Hepatitis panel, Chronic [...] Testing | | | | performed at [facility], [address] [place] [address], | | | | [place] [address] | | + + + + + + + | Specimen | Performing Laboratory | + + + | | [address] [place], | | | [place] [address] | + + + POCT glucose (07/23/2017 5:42 AM) + + + + | Component | Value | Ref Range | + + + + | GLUCOSE,POC SCREEN | 138 (H)Comment: Testing performed at | 65 - 99 mg/dL | | | [facility];[address];[place] [address] | | + + + + + + + | Specimen | Performing Laboratory | + + + | | [facility] [address] [facility] [place] [address] | + + + Renal function panel [...] | | | | 1.210.Testing performed at [facility], [address] | | | | [place] [address] | | | | | | + + + + + + + | Specimen | Performing Laboratory | + + + | | [facility] [address] [place], [place] [address]vd. [place], | | | [place] [address] | + + + CBC w/auto diff [...] BASOPHILS ABS | 0.08Comment: Testing performed at [facility], [address] | 0.00 - 0.10 K/uL | | | [facility] [place] [address] | | + + + + + + + | Specimen | Performing Laboratory | + + + | Blood | [address] [place], | | | [place] [address] | + + + Magnesium (07/23/2017 5:01 AM) + + + + | Component | Value | Ref Range | + + + + | MAGNESIUM | 3.1 (H)Comment: Testing performed at [facility], | 1.7 - 2.4 mg/dL | | | [address] [facility] [place] | | | | [address] | | + + + + + + + | Specimen | Performing Laboratory | + + + | Blood | [facility] [address] [place], | | | [place] [address] | + + + POCT glucose (07/22/2017 10:00 PM) + + + + | Component | Value | Ref Range | + + + + | GLUCOSE,POC SCREEN | 159 (H)Comment: Testing performed at | 65 - 99 mg/dL | | | [facility];[address] [place] [address];[place] [address] | | + + + + + + + | Specimen | Performing Laboratory | + + + | | [facility] [address] [facility] [place] [address] | + + + US upper extremity right soft tissue (07/22/2017 9:44 PM) + + + | Specimen | Performing Laboratory | + + + | | [place] [address] [place] [address] | + + + + + | [...] + + | Blood - Blood | [facility] [address] [place], | | | [place] [address] | + + + MRSA by PCR (07/22/2017 9:22 PM) + + + + | Component | Value | Ref Range | + + + + | SOURCE | NARES(NOSE) | | + + + + | MRSA PCR | POSITIVE for MRSA by PCR (A)Comment: | NEGATIVE | | | Testing performed at [facility];[address] | | | | [place] [address] | | + + + + + + + | Specimen | Performing Laboratory | + + + | Nasopharyngeal - | [facility] [address] [place] [address] | | Nares(Nose) | | + + [...] + + | Blood - Blood, | [facility] [address] [place] [address] Blvd[address] [place], | | peripheral draw | [place] [address] | + + + Sedimentation Rate (ESR) (07/22/2017 2:40 PM) + + + + | Component | Value | Ref Range | + + + + | ESR | 13Comment: Testing performed at [facility] | 0 - 20 mm/Hr | | | [place] [facility];[place] [address] | | + + + + + + + | Specimen | Performing Laboratory | + + + | Blood | [place] [address] [place] [address] | + + + C-Reactive Protein (07/22/2017 2:40 PM) + + + + | Component | Value | Ref Range | + + + + | CRP | 1.3 (H)Comment: Testing performed at | <0.5 mg/dL | | | [facility];[address] [place] [address];[place] [address] | | + + + + + + + | Specimen | Performing Laboratory | + + + | Blood | [facility] [address] [place] [address] | + + + Lactic acid (07/22/2017 2:30 PM) + + + + | Component | Value | Ref Range | + + + + | LACTIC ACID | 1.0Comment: Testing performed at [facility];[address] | 0.4 - 2.0 mmol/L | | | [address] [facility];[place] [address] | | + + + + + + + | Specimen | Performing Laboratory | + + + | Blood | [facility] [address] [facility] [place] [address] | + + + Comprehensive metabolic panel [...] | | | | 1.210.Testing performed at [facility];[address] [place] [address] | | | | [place] [address] | | | | | | + + + + + + + | Specimen | Performing Laboratory | + + + | Blood | [facility] [address] [place] [address] | + + + CBC with differential [...] BASOPHILS ABS | 0.09Comment: Testing performed at [facility] | 0.00 - 0.10 K/uL | | | [facility];[place] [address] | | + + + + + + + | Specimen | Performing Laboratory | + + + | Blood | [facility] [address] [place] [address] | + + + ED INFORMATION EXCHANGE (07/22/2017 1:31 PM) + + + | Specimen | Performing Laboratory | + + + | | ED INFORMATION EXCHANGE | + + + + + | Narrative | + + | [id number] This patient [facility] at the [facility] | [facility] Emergency Department For more information visit: | | [email or web address] ED Care | | Guidelines There are currently no ED Care Guidelines in DECLAN for this patient. Please | | check your facility's medical records system. Recent Emergency Department Visit Summary | | Admit Date Facility City State Type Major Type Diagnoses or Chief Complaint Jul 22, | | [facility] Apr [facility], 2017 [facility] | | Raheem Talamantes [place] Emergency Emergency [...] reflux disease without esophagitis Other | | penitentiary (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 Periapical abscess without sinus E.D. | | Visit Count (12 mo.) Facility Visits [facility] 4 0 | | [facility] 13 0 Total 17 0 Note: Visits [...] the aforementioned facilities for additional information. 2018 [employer] | | [email or web address] - [place], [place] - [email or web address] | + + + + | Procedure Note | + + | Interface, Lab - 07/22/2017 1:32 PM PST Formatting of this note may be different | | from the original.[id number] [id number] patient has registered at the [facility] | | [facility] Emergency Department For more information visit: | | [email or web address] ED Care | | GuidelinesThere are currently no ED Care Guidelines in DECLAN for this patient. Please | | check your facility's medical records system.Recent Emergency Department Visit | | SummaryAdmit Date Facility [facility] State Type Major Type Diagnoses or Chief Complaint Jun | | 2017 [facility] [place] Emergency Emergency Apr 26, 2017 NEISHA Glez [...] uncomplicated Gastro-esophageal reflux disease without esophagitis Other penitentiary | | (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 Periapical abscess without sinus E.D. Visit Count (12 | | mo.)Facility Visits [facility] 4 0 [facility] | | Hospital 13 0 Total 17 [...] facilities for additional information. 2018 | | [employer] [place], [place] - | | [email or web address] | |[facility] 13 0 | |Total 17 0 | [...] aforementioned facilities for additional information. | |2017 [employer] [place], [place] - [email or web address] | + + in this encounter Visit [...] | | | | button to message [employer] for | | | | | | [...]
--- NOTE | 2017-10-08 17:13 | EKG ---
[facility] [address] [facility] [place] [address] Signed Normal sinus rhythm Low voltage QRS Nonspecific T wave abnormality Abnormal ECG When compared with ECG of 21-FEB-2017 05:39, T wave inversion now evident in Anterior leads Confirmed by ELLE MENDEZ MD ([id number]) on 10/08/2017 5:12:58 PM Electronically Signed By: ELLE MENDEZ MD 10/08/17 1713 PATIENT NAME: CAROL STANTON Electrocardiogram DATE OF : 61 PHYSICIAN: ELLE MENDEZ MD REPORT #: [id number] REPORT IS CONFIDENTIAL AND NOT TO BE RELEASED WITHOUT AUTHORIZATION
== END 2017-10-07 04:00 | disposition home or self-care (01) ==
LOC: ED 23:36
DX: L03.113 Cellulitis of right upper limb (principal); Z99.2 Dependence on renal dialysis; K21.9 Gastro-esophageal reflux disease without esophagitis; I12.9 Hypertensive chronic kidney disease with stage 1 through stage 4 chronic kidney disease, or unspecified chronic kidney disease; E11.22 Type 2 diabetes mellitus with diabetic chronic kidney disease; N18.9 Chronic kidney disease, unspecified; Z87.891 Personal history of nicotine dependence; Z88.8 Allergy status to other drugs, medicaments and biological substances; Z88.0 Allergy status to penicillin; Z88.1 Allergy status to other antibiotic agents; Z79.899 Other long term (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
CPT/HCPCS: 71045; 80053; 84484; 85025; 93005; 93010; 96374; 96375; 99285; J1170; J2405

== ENCOUNTER 2017-12-31 20:56 | Emergency (ER) | payer MEDICARE, OTHER ==
[~2017-12-31] VITALS: Ht 170.2 cm; Wt 78.9 kg
== END 2017-12-31 22:26 | disposition home or self-care (01) ==
LOC: ED 20:56
DX: J98.01 Acute bronchospasm (principal); E11.22 Type 2 diabetes mellitus with diabetic chronic kidney disease; I12.9 Hypertensive chronic kidney disease with stage 1 through stage 4 chronic kidney disease, or unspecified chronic kidney disease; N18.6 End stage renal disease; Z99.2 Dependence on renal dialysis; K21.9 Gastro-esophageal reflux disease without esophagitis; Z87.891 Personal history of nicotine dependence; Z88.0 Allergy status to penicillin; Z88.8 Allergy status to other drugs, medicaments and biological substances; Z88.1 Allergy status to other antibiotic agents; Z79.899 Other long term (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
CPT/HCPCS: 94640; 99284

== ENCOUNTER 2018-02-11 04:18 | Emergency (ER) | payer MEDICARE, OTHER ==
[~2018-02-11] VITALS: Ht 170.2 cm; Wt 78.9 kg
--- OUTSIDE RECORDS SUMMARY | ~2018-02-11 | XMS | Encounter Summary ---
Demographics + + + | Address | [address] | | | [place] [address] | + + + | Home Phone | | + + + | Preferred Language | Unknown | + + + | Marital Status | | + + + | Restoration Affiliation | 1076 | + + + | Race | Unknown | + + + | Ethnic Group | Unknown | + + + Author + + + | Author | [employer] | + + + | Organization | [employer] | + + + | Address | [...] | | + + +---------+ + | Cristel Potter | ECON | Unknown | | + + +---------+ + Care Team Providers + +------+ + | Care Hardwood Faller Name | Role | Phone | + +------+ + | Andry Deng MD | PCP | | + +------+ + Reason for Visit +--------+ + | Reason | Comments | +--------+ + | Other | Emelia Mccormack Provider Rounding Dialysis Note | +--------+ + Encounter Details +--------+ + + + + | Date | Type | Department | Care Team | Description | +--------+ + + + + | 12/13/ | Documentati | [facility] | Jayy Christianson MD | Other (October | | 2017 | on Only | [place] [address] | 2018-[facility] Provider | | | | [address] | [address] [place], [place] | Rounding Dialysis | | | | [place] [address] | [phone] | Note) | | | | [phone] | | | +--------+ + + + + Social History + +-------+ +--------+ + | Tobacco Use | Types | Packs/Day | Years | Date | | | | | Used | | + +-------+ +--------+ + | Former Smoker | | 1 | 23 | Quit: 04/28/2011 | + +-------+ +--------+ + + +---+---+---+ | Smokeless Tobacco: | | | | | Never Used | | | | + +---+---+---+ + + | Comments: quit 17 yrs ago | + + + + +---------+ + | Alcohol Use | Drinks/We | oz/Week | Comments | | | ek | | | + + +---------+ + | No | | | | + + +---------+ + + + + | Sex Assigned at | Date Recorded | | | | + + + | Not on file | | + + + as of this encounter Plan of Treatment Not on fileas of this encounter Visit Diagnoses Not on filein this encounter"
--- OUTSIDE RECORDS SUMMARY | ~2018-02-11 | XMS | Encounter Summary ---
Demographics + + + | Address | [address] | | | [place] [address] | + + + | Home Phone | | + + + | Preferred Language | Unknown | + + + | Marital Status | | + + + | Restorationism Affiliation | 1076 | + + + | Race | Unknown | + + + | Ethnic Group | Unknown | + + + Author + + + | Author | [employer] | + + + | Organization | [employer] | + + + | Address [...] Team Providers + +------+ + | Care Seat Installer Name | Role | Phone | + +------+ + | Andry Deng MD | PCP | | + +------+ + Reason for Visit +--------+ + | Reason | Comments | +--------+ + | Other | December 2017-[facility] Provider Dialysis Rounding Note | +--------+ + Encounter Details +--------+ + + + + | Date | Type | Department | Care Team | Description | +--------+ + + + + | 01/24/ | Documentati | [facility] | Jayy Christianson MD | Other (December | | 2017 | on Only | [place] [address] | [address] | 2018-[facility] Provider | | | | [address] | [address] [place], [place] | Dialysis Rounding | | | | [place] [address] | [id number] | Note) | | | | [phone] | | | +--------+ + + + [...]
--- OUTSIDE RECORDS SUMMARY | ~2018-02-11 | XMS | Encounter Summary ---
Demographics + + + | Address | [address] | | | [place] [address] | + + + | Home Phone | | + + + | Preferred Language | Unknown | + + + | Marital Status | | + + + | Hinduism Affiliation | 1076 | + + + | Race | Unknown | + + + | Ethnic Group | Unknown | + + + Author + + + | Author | [employer] | + + + | Organization | [employer] | + + + | Address [...] Providers + +------+ + | Care Senior Linux Administrator Name | Role | Phone | + [...] | | 2017 | on Only | [place] [address] | [address] | 2018-[facility] Provider | | | | [address] | [address] [place], [place] | Dialysis Rounding | | | | [place] [address] | [id number] | Note) | | | | [phone] | | | +--------+ + + + [...]
--- OUTSIDE RECORDS SUMMARY | ~2018-02-11 | XMS | Encounter Summary ---
Demographics + + + | Address | [address] | | | [place] [address] | + + + | Home Phone | | + + + | Preferred Language | Unknown | + + + | Marital Status | | + + + | Amish Affiliation | 1076 | + + + | Race | Unknown | + + + | Ethnic Group | Unknown | + + + Author + + + | Author | [employer] | + + + | Organization | [employer] | + + + | Address [...] Team Providers + +------+ + | Care Junior Analyst Name | Role | Phone | [...] | | 2017 | on Only | [place] [address] | [address] | 2018-[facility] Provider | | | | [address] | [address] [place], [place] | Rounding Dialysis | | | | [place] [address] | [phone] | Note) | | | | [phone] | | | +--------+ + + + [...]
--- OUTSIDE RECORDS SUMMARY | ~2018-02-11 | XMS | Encounter Summary ---
Demographics + + + | Address | [address] | | | [place] [address] | + + + | Home Phone | | + + + | Preferred Language | Unknown | + + + | Marital Status | | + + + | Adventist Affiliation | 1076 | + + + | Race | Unknown | + + + | Ethnic Group | Unknown | + + + Author + + + | Author | [employer] | + + + | Organization | [employer] [facility] | + + + | Address [...] Team Providers + +------+ + | Care New Order Clerk Name | Role | Phone | + +------+ + | Andry Deng MD | PCP | | + +------+ + Reason for Visit +--------+ + | Reason | Comments | +--------+ + | Other | Labs Hang. from [facility] | +--------+ + Encounter Details +--------+ + + + + | Date | Type | Department | Care Team | Description | +--------+ + + + + | 11/14/ | Documentati | [facility] | Indigo Johnson MA | Other (Labs Recd. | | 2018 | on Only | Infectious Disease | | from [facility] ) | | | | [address] | | | | | | [facility] [address] | | | | | | [place] [address] | | | | | | [phone] | | | +--------+ + + + [...] + + + as of this encounter Progress Notes Alex IndigoANASTASIA - 11/14/2017 2:12 PM [facility]. [facility] Lab DOS for Vanco Trough was 11/13 And CRP 11/11/17.in this encounter Plan of Treatment Not on fileas of this encounter Procedures + +--------+ + + + | Procedure Name | Priori | Date/Time | Associated Diagnosis | Comments | | | ty | | | | + +--------+ + + + | VANCOMYCIN, TROUGH | Routin | 11/13/2017 | | Results for this | | | e | 12:00 AM | | procedure are in the | | | | PDT | | results section. | + +--------+ + + + | C-REACTIVE PROTEIN | Routin | 11/11/2017 | | Results for this | | | e | 12:00 AM | | procedure are in the | | | | PDT | | results section. | + +--------+ + + + in this encounter Results Vancomycin, trough (11/13/2017) + + + + + | Component | Value | Ref Range | Performed At | + + + + + | VANCOMYCIN,TROUGH | 17.5 (A) | 10 - 16 ug/mL | EXTERNAL LAB | + + + + + + + | Specimen | + + | Blood | + + + +---------+ + + | Performing | Address | City/State/Zipcode | Phone Number | | Organization | | | | + +---------+ + + | EXTERNAL LAB | | | | + +---------+ + + C-reactive protein (11/11/2017) + + + + + | Component | Value | Ref Range | Performed At | + + + + + | CRP | 5.72 (A) | 0.00 - 1.0 mg/dL | EXTERNAL LAB | + + + + + + + | Specimen | + + | Blood | + + + +---------+ + + | Performing | Address | City/State/Zipcode | Phone Number | | Organization | | | | + +---------+ + + | EXTERNAL LAB | | | | + +---------+ + + in this encounter Visit Diagnoses Not on filein this encounter"
--- OUTSIDE RECORDS SUMMARY | ~2018-02-11 | XMS | Encounter Summary ---
Demographics + + + | Address | [address] | | | [place] [address] | + + + | Home Phone | | + + + | Preferred Language | Unknown | + + + | Marital Status | | + + + | Jew Affiliation | 1076 | + + + | Race | Unknown | + + + | Ethnic Group | Unknown | + + + Author + + + | Author | [employer] | + + + | Organization | [employer] [facility] | + + + | [...] Team Providers + +------+ + | Care Renal Technician Name | Role | Phone | + +------+ + | Andry Deng MD | PCP | | + +------+ + Reason for Visit +--------+ + | Reason | Comments | +--------+ + | Other | H/FU Appt | +--------+ + Encounter Details +--------+ + + + + | Date | Type | Department | Care Team | Description | +--------+ + + + + | 11/14/ | Telephone | [facility] | Indigo Johnson MA | Other (H/FU Appt) | | 2018 | | Infectious Disease | | | | | | [address] | | | | | | [facility] [address] | | | | | | [place] [address] | | | | | | [phone] | | | +--------+ + + + [...]
--- OUTSIDE RECORDS SUMMARY | ~2018-02-11 | XMS | Clinical Summary ---
Demographics + + + | Address | [address] | | | [place] [address] | + + + | Home Phone | | + + + | Preferred Language | Unknown | + + + | Marital Status | Unknown | + + + | Mosque Affiliation | Unknown | + + + | Race | Unknown | + + + | Ethnic Group | Unknown | + + + Author + + + | Author | [facility] | | | and Juanana | + + + | Organization | [facility] | | | and Juanana | + + + | Address | Unknown | + + + | Phone | Unavailable | + + + Care Team Providers + +------+ + | Care Medical Surgery Nurse Name | Role | Phone | + [...] + + + + | Overview: JAMIL [id number] Decision | + + + +---+ | [...]
--- OUTSIDE RECORDS SUMMARY | ~2018-02-11 | XMS | Encounter Summary ---
Demographics + + + | Address | [address] | | | [place] [address] | + + + | Home Phone | | + + + | Preferred Language | Unknown | + + + | Marital Status | | + + + | Hindu Affiliation | 1076 | + + + | Race | Unknown | + + + | Ethnic Group | Unknown | + + + Author + + + | Author | [employer] | + + + | Organization | [employer] [facility] | + + + | Address [...] + + +---------+ + | Cristel Potter ECON | Unknown | | + + +---------+ + Care Team Providers + +------+ + | Care Package Sealer Name | Role | Phone | + +------+ + | Andry Deng MD | PCP | | + +------+ + Encounter Details +--------+ + + + + | Date | Type | Department | Care Team | Description | +--------+ + + + + | 12/20/ | Telephone | [facility] | [place], | | | 2018 | | Radiology [address] | ANASTASIA Sánchez | | | | | [place] | | | | | | [place] | | | | | | [address] | | | | | | [phone] | | | +--------+ + + + [...]
--- OUTSIDE RECORDS SUMMARY | ~2018-02-11 | XMS | Encounter Summary ---
Demographics + + + | Address | [address] | | | [place] [address] | + + + | Home Phone | | + + + | Preferred Language | Unknown | + + + | Marital Status | | + + + | Adventism Affiliation | 1076 | + + + | Race | Unknown | + + + | Ethnic Group | Unknown | + + + Author + + + | Author | [employer] | + + + | Organization | [employer] [facility] | + + + | Address [...] Team Providers + +------+ + | Care Collection Specialist Name | Role | Phone | + +------+ + | Andry Deng MD | PCP | | + +------+ + Encounter Details +--------+---------+ + + + | Date | Type | Department | Care Team | Description | +--------+---------+ + + + | 11/26/ | Office | [facility] | [place], | No Show | | 2018 | Visit | Infectious Disease | MD [address] | | | | | [address] | [place], [place] | | | | | [facility] [address] | [address] | | | | | [place] [address] | | | | | | [phone] | | | +--------+---------+ + + + Social History + +-------+ [...]
--- OUTSIDE RECORDS SUMMARY | ~2018-02-11 | XMS | Encounter Summary ---
Demographics + + + | Address | [address] | | | [place] [address] | + + + | Home Phone | | + + + | Preferred Language | Unknown | + + + | Marital Status | | + + + | Yazidi Affiliation | 1076 | + + + | Race | Unknown | + + + | Ethnic Group | Unknown | + + + Author + + + | Author | [email or web address] | + + + | Organization | [employer] | + + + | Address [...] Team Providers + +------+ + | Care Hydrochloric Manufacturing Supervisor Name | Role | Phone | [...] + + | 11/14/ | Telephone | [facility] | Indigo Johnson MA | Other (H/FU Appt) | | 2018 | | Infectious Disease | | | | | | [address] | | | | | | [facility] [address] | | | | | | [place] [address] | | | | | | [phone] | | | +--------+ + + + [...]
--- OUTSIDE RECORDS SUMMARY | ~2018-02-11 | XMS | Encounter Summary ---
Demographics + + + | Address | [address] | | | [place] [address] | + + + | Home Phone | | + + + | Preferred Language | Unknown | + + + | Marital Status | | + + + | Mosque Affiliation | 1076 | + + + | Race | Unknown | + + + | Ethnic Group | Unknown | + + + Author + + + | Author | [employer] | + + + | Organization | [employer] | + + + | Address [...] Team Providers + +------+ + | Care Grounding Engineer Name | Role | Phone | [...] + + | 11/14/ | Documentati | [facility] | Indigo Johnson MA | Other (Labs Recd. | | 2018 | on Only | Infectious Disease | | from [facility] ) | | | | [address] | | | | | | [facility] [address] | | | | | | [place] [address] | | | | | | [phone] | | | +--------+ + + + [...] - 11/14/2017 2:12 PM [facility] DOS for Vanco Trough [...]
--- OUTSIDE RECORDS SUMMARY | ~2018-02-11 | XMS | Encounter Summary ---
Demographics + + + | Address | [address] | | | [place] [address] | + + + | Home Phone | | + + + | Preferred Language | Unknown | + + + | Marital Status | Unknown | + + + | Mormon Affiliation | Unknown | + + + | Race | Unknown | + + + | Ethnic Group | Unknown | + + + Author + + + | Author | [facility] | | | and Juanana | + + + | Organization | [facility] | | | and Juanana | + + + | Address | Unknown | + + + | Phone | Unavailable | + + + Care Team Providers + +------+ + | Care Digital Performance Analyst Name | Role | Phone | [...] [place] | | | | | | [address] | | | | | | [phone] | | | +--------+ + + + [...]
--- OUTSIDE RECORDS SUMMARY | ~2018-02-11 | XMS | Encounter Summary ---
Demographics + + + | Address | [address] | | | [place] [address] | + + + | Home Phone | | + + + | Preferred Language | Unknown | + + + | Marital Status | | + + + | Jainism Affiliation | 1076 | + + + | Race | Unknown | + + + | Ethnic Group | Unknown | + + + Author + + + | Author | [employer] | + + + | Organization | [employer] [facility] | + + + | Address [...] Team Providers + +------+ + | Care Choir Singer Name | Role | Phone | + +------+ + | Andry Deng MD | PCP | | + +------+ + Encounter Details +--------+---------+ + + + | Date | Type | Department | Care Team | Description | +--------+---------+ + + + | 11/26/ | Office | [facility] | [place], | No Show | | 2018 | Visit | Infectious Disease | MD [address] | | | | | [address] | [place], [place] | | | | | [facility] [address] | [address] | | | | | [place] [address] | | | | | | [phone] | | | +--------+---------+ + + + [...]
--- OUTSIDE RECORDS SUMMARY | ~2018-02-11 | XMS | Encounter Summary ---
Demographics + + + | Address | [address] | | | [place] [address] | + + + | Home Phone | | + + + | Preferred Language | Unknown | + + + | Marital Status | Unknown | + + + | Buddhism Affiliation | Unknown | + + + | Race | Unknown | + + + | Ethnic Group | Unknown | + + + Author + + + | Author | [facility] | | | and Juanana | + + + | Organization | [facility] | | | and Juanana | + + + | Address | Unknown | + + + | Phone | Unavailable | + + + Care Team Providers + +------+ + | Care Disability Program Navigator Name | Role | Phone | + [...] [place] | | | | | | [address] | | | | | | [phone] | | | +--------+ + + + [...]
--- OUTSIDE RECORDS SUMMARY | ~2018-02-11 | XMS | Clinical Summary ---
Demographics + + + | Address | [address] | | | [place] [address] | + + + | Home Phone | | + + + | Preferred Language | Unknown | + + + | Marital Status | | + + + | Yazidi Affiliation | 1076 | + + + | Race | Unknown | + + + | Ethnic Group | Unknown | + + + Author + + + | Author | [facility] | + + + | Organization | [employer] [facility] | + + + | Address [...] Team Providers + +------+ + | Care Warp Worker Name | Role | Phone | [...] | | | | | | dialysis ([facility]) | | | | | | | [...] | | | | | | dialysis ([facility]) | | | | | | | [...] ready for discharge from the | | custodial facility next week. | + + + [...] Other (November | on Only | | 2017-[facility] Provider | | | | | | [facility] | | | | | | Note) | +--------+ + + + + | 12/20/ | Telephone | | [place], | | 2017 | | | ANASTASIA Sánchez | | +--------+ + + + + | 12/13/ | Documentati | | Jayy Christianson MD | Other (October | on Only | | 2017-[facility] Provider | | | | | | [facility] | | | | | | Note) | +--------+ + + + + | 11/26/ | Office | | [place], | No Show | | 2017 | Visit | | MD Elsie | | +--------+ + + + + | 11/14/ | Documentati | | Indigo Johnson MA | Other (Labs Recd. | | 2017 | on Only | | | from [facility] ) | +--------+ + + + + | 11/14/ | Telephone | | Indigo Johnson MA | Other (H/FU Appt) | | 2017 | | | | | +--------+ + + + + from [...] + | Mother | | | from [place] | | | | (Age | | [...] Stent | Right: | | | | [id number] | | 40-09/11[birth year]2016Implanted: | | | | | | / | | 09/11/2016 by Jimenez Garnica, | | [employer] | | | | /[id number] | | PhD (Quantity not on | | vian | | | | 669 | | file) | | | | | | | + +-------+--------+ +--------+--------+--------+ | Zilver 14 X | Stent | Right: | | | | [id number] | | 60-09/11/2016Implanted: | | | | | | / | | 09/11/2016 by Jimenez Garnica, | | [employer]cla | | | | /[id number] | | PhD (Quantity not on | | vian | | | | 524 | | file) | | | | | | | + +-------+--------+ +--------+--------+--------+ | Hemodialysis Catheter 12x20 | | Left: | | | 10/05/ | [id number] | | Curved - Sn/AImplanted: Qty: | [...] | Left: | | | 02/22/ | [id number] | | Pre Cvd Sexual Health Physician Std | | Neck | | | 2012 | 0 | | Hemosplit 14.5 24cm - | | | | | | /[id number] | | [id number]: Qty: 1 on | | | | [...] + + from Last 3 Months Results Vancomycin, trough (11/13/2017) + + + [...] | | | + +---------+ + + from Last 3 Months Insurance + +--------+ +------+-------+ + | Payer | Benefi | Subscriber | Type | Phone | Address | | | t Plan | ID | | | | | | / | | | | | | | Group | | | | | + +--------+ +------+-------+ + | MEDICARE | MEDICA | [id number] | | | [address] | | | RE | | | | [place] [address] | | | IP-OP | | | | | + +--------+ +------+-------+ + | MEDICAID | MEDICA | [id number] | | | [address] | | | ID | | | | [place] | | | [place] | | | | [address] | + +--------+ +------+-------+ + | [facility] | YELLOW | [id number] | | | | | PLANS | [...] | Self | [birth year] | Home: | [address] | | | al/Fam | | 1965 | [phone] | [place] | | | [place]an | | | [phone] | [address] | + +--------+ +--------+ + +
--- OUTSIDE RECORDS SUMMARY | ~2018-02-11 | XMS | Encounter Summary ---
Demographics + + + | Address | [address] | | | [place] [address] | + + + | Home Phone | | + + + | Preferred Language | Unknown | + + + | Marital Status | | + + + | Samaritan Affiliation | 1076 | + + + | Race | Unknown | + + + | Ethnic Group | Unknown | + + + Author + + + | Author | [employer] | + + + | Organization | [employer] | + + + | Address [...] Team Providers + +------+ + | Care Tree Specialist Name | Role | Phone | [...] | | 2017 | on Only | [address] | [address] | 2018-[facility] Provider | | | | [address] | [address] [place], [place] | [facility] | | | | [place] [address] | [address] | Note) | | | | [phone] | | | +--------+ + + + [...]
--- OUTSIDE RECORDS SUMMARY | ~2018-02-11 | XMS | Clinical Summary ---
Demographics + + + | Address | [address] | | | [place] [address] | + + + | Home Phone [...] + + | Author | [facility] | | | and Juanana | + + + | Organization | [facility] | | | and Juanana | + + + | Address | Unknown | + + + | Phone | Unavailable | + + + Care Team Providers + +------+ + | Care Finishing Room Operator Name | Role | Phone | [...] + + + + | Overview: JAMIL [id number] Decision | + + + +---+ | [...]
--- OUTSIDE RECORDS SUMMARY | ~2018-02-11 | XMS | Encounter Summary ---
Demographics + + + | Address | [address] | | | [place] [address] | + + + | Home Phone | | + + + | Preferred Language | Unknown | + + + | Marital Status | | + + + | Rastafari Affiliation | 1076 | + + + | Race | Unknown | + + + | Ethnic Group | Unknown | + + + Author + + + | Author | [employer] | + + + | Organization | [facility] | + + + | Address [...] Providers + +------+ + | Care Medical Manager Name | Role | Phone | [...] | | 2017 | on Only | [place] [address] | [address] | 2018-[facility] Provider | | | | [address] | [address] [place], [place] | [facility] | | | | [place] [address] | [address] | Note) | | | | [phone] | | | +--------+ + + + [...]
--- OUTSIDE RECORDS SUMMARY | ~2018-02-11 | XMS | Clinical Summary ---
Demographics + + + | Address | [address] | | | [place] [address] | + + + | Home Phone | | + + + | Preferred Language | Unknown | + + + | Marital Status | | + + + | Oriental Orthodox Affiliation | 1076 | + + + | Race | Unknown | + + + | Ethnic Group | Unknown | + + + Author + + + | Author | [employer] | + + + | Organization | [employer] [facility] | + + + | Address [...] Team Providers + +------+ + | Care Pediatric Physical Therapy Assistant Name | Role | Phone | [...] | | | | dialysis ([facility]) | | | | | | | [...] | | | | dialysis ([facility]) | | | | | | | [...] + | Mother | | | from [place] | | | | (Age | | [...] Stent | Right: | | | | [id number] | | 40-09/11/2016Implanted: | | | | | | / | | 09/11/2016 by Jimenez Garnica, | | [employer] | | | | /[id number] | | PhD (Quantity not on | | vian | | | | 669 | | file) | | | | | | | + +-------+--------+ +--------+--------+--------+ | Zilver 14 X | Stent | Right: | | | | [id number] | | 60-09/11/2016Implanted: | | | | | | / | | 09/11/2016 by Jimenez Garnica, | | [employer]cl[employer] | | | | /[id number] | | PhD (Quantity not on | | vian | | | | 524 | | file) | | | | | | | + +-------+--------+ +--------+--------+--------+ | Hemodialysis Catheter 12x20 | | Left: | | | 10/05/ | [id number] | | Curved - Sn/AImplanted: Qty: | [...] | Left: | | | 02/22/ | [id number] | | Pre Cvd Network Administrator Std | | Neck | | | 2012 | 0 | | Hemosplit 14.5 24cm - | | | | | | /[id number] | | [id number]: Qty: 1 on | | | | [...] +------+-------+ + | MEDICARE | MEDICA | [id number] | | | [address] | | | RE | | | | [place] [address] | | | IP-OP | | | | | + +--------+ +------+-------+ + | MEDICAID | MEDICA | [id number] | | | [address] | | | [place] | | | | [place] | | | [place] | | | | [address] | + +--------+ +------+-------+ + | [facility] | YELLOW | [id number] | | | | | PLANS | [...] | Self | [birth year] | Home: | [address] | | | al/Fam | | 1965 | [phone] | [place] | | | [place] | | | [phone] | [address] | + +--------+ +--------+ + +
--- OUTSIDE RECORDS SUMMARY | ~2018-02-11 | XMS | Encounter Summary ---
Demographics + + + | Address | [address] | | | [place] [address] | + + + | Home Phone | | + + + | Preferred Language | Unknown | + + + | Marital Status | | + + + | Jew Affiliation | 1076 | + + + | Race | Unknown | + + + | Ethnic Group | Unknown | + + + Author + + + | Author | [facility] | + + + | Organization | [employer] [facility] | + + + | Address [...] Providers + +------+ + | Care Automatic Beam Warper Tender Name | Role | Phone | [...] [place] | | | | | | [address] | | | | | | [phone] | | | +--------+ + + + [...]
[~2018-02-11 04:18] MED LIST changes: +METHYLPREDNISOLO4 M1 PO; +WARFARIN SODIU2.5 MG PO
== END 2018-02-11 05:43 | disposition home or self-care (01) ==
LOC: ED 04:18
DX: S16.1XXA Strain of muscle, fascia and tendon at neck level, initial encounter (principal); W17.89XA Other fall from one level to another, initial encounter; I12.0 Hypertensive chronic kidney disease with stage 5 chronic kidney disease or end stage renal disease; E11.22 Type 2 diabetes mellitus with diabetic chronic kidney disease; N18.6 End stage renal disease; J45.909 Unspecified asthma, uncomplicated; E03.9 Hypothyroidism, unspecified; K21.9 Gastro-esophageal reflux disease without esophagitis; Z88.8 Allergy status to other drugs, medicaments and biological substances; Z88.0 Allergy status to penicillin; Z88.1 Allergy status to other antibiotic agents; Z79.899 Other long term (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; Z79.01 Long term (current) use of anticoagulants; Z99.2 Dependence on renal dialysis
CPT/HCPCS: 72125; 99284

== ENCOUNTER 2018-02-23 13:07 | Emergency (ER) | payer MEDICARE, OTHER ==
[~2018-02-23] VITALS: Ht 170.2 cm; Wt 78.9 kg
[2018-02-23] MEDS ORDERED: NORCO 5-325 TA1 EACH PO (13:37)
[2018-02-23] MEDS ORDERED: CILOXAN5 ML OD (13:37)
== END 2018-02-23 13:42 | disposition home or self-care (01) ==
LOC: ED 13:07
DX: H10.9 Unspecified conjunctivitis (principal); I12.0 Hypertensive chronic kidney disease with stage 5 chronic kidney disease or end stage renal disease; E11.22 Type 2 diabetes mellitus with diabetic chronic kidney disease; N18.6 End stage renal disease; Z99.2 Dependence on renal dialysis; Z88.0 Allergy status to penicillin; Z88.8 Allergy status to other drugs, medicaments and biological substances
CPT/HCPCS: 99283

== ENCOUNTER 2018-03-24 09:17 | Emergency (ER) | payer MEDICARE, OTHER ==
[~2018-03-24] VITALS: Ht 170.2 cm; Wt 80.3 kg
--- OUTSIDE RECORDS SUMMARY | ~2018-03-24 | XMS | Encounter Summary ---
Demographics + + + | Address | [address] | | | [place] [address] | + + + | Home Phone | | + + + | Preferred Language | Unknown | + + + | Marital Status | | + + + | Pentecostalism Affiliation | 1076 | + + + | Race | Unknown | + + + | Ethnic Group | Unknown | + + + Author + + + | Author | [employer] | + + + | Organization | [employer] | + + + | Address [...] Team Providers + +------+ + | Care Oxide Furnace Tender Name | Role | Phone | + +------+ + | Andry Deng MD | PCP | | + +------+ + Reason for Visit +--------+ + | Reason | Comments | +--------+ + | Other | January 2018-[facility] Provider Dialysis Rounding Note | +--------+ + Encounter Details +--------+ + + + + | Date | Type | Department | Care Team | Description | +--------+ + + + + | 02/25/ | Documentati | [facility] | Jayy Christianson MD | Other (January | | 2018 | on Only | [place] [address] | [address] | 2018-[facility] Provider | | | | [address] | [address] [place], [place] | Dialysis Rounding | | | | [place] [address] | [address] | Note) | | | | [phone] | | | +--------+ + + + [...]
--- OUTSIDE RECORDS SUMMARY | ~2018-03-24 | XMS | Encounter Summary ---
Demographics + + + | Address | [address] | | | [place] [address] | + + + | Home Phone | | + + + | Preferred Language | Unknown | + + + | Marital Status | | + + + | Roman Catholic Affiliation | 1076 | + + + | Race | Unknown | + + + | Ethnic Group | Unknown | + + + Author + + + | Author | [employer] | + + + | Organization | [employer] | + + + | Address [...] Team Providers + +------+ + | Care Customer Advocate Name | Role | Phone | + [...] | | 2017 | on Only | [place] [address] | [address] | 2018-[facility] Provider | | | | [address] | [address] [place], [place] | Rounding Dialysis | | | | [place] [address] | [address] | Note) | | | | [phone] | | | +--------+ + + + [...]
--- OUTSIDE RECORDS SUMMARY | ~2018-03-24 | XMS | Encounter Summary ---
Demographics + + + | Address | [address] | | | [place] [address] | + + + | Home Phone | | + + + | Preferred Language | Unknown | + + + | Marital Status | | + + + | Islam Affiliation | 1076 | + + + | Race | Unknown | + + + | Ethnic Group | Unknown | + + + Author + + + | Author | [employer] | + + + | Organization | [employer] | + + + | Address [...] Team Providers + +------+ + | Care Cage Unloader Name | Role | Phone | + [...] | | 2017 | on Only | [place] [address] | [address] | 2018-[facility] Provider | | | | [address] | [address] [place], [place] | Dialysis Rounding | | | | [place] [address] | [address] | Note) | | | | [phone] | | | +--------+ + + + [...]
--- OUTSIDE RECORDS SUMMARY | ~2018-03-24 | XMS | Clinical Summary ---
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 | + + + [...] + | Mother | | | from [place] | | | | (Age | | [...] Stent | Right: | | | | [id number] | | 40-09[birth year]11[birth year]2016Implanted: | | | | | | / | | 09/11/2016 by Jimenez Garnica, | | [employer]cl[employer] | | | | /[id number] | | PhD (Quantity not on | | vian | | | | 669 | | file) | | | | | | | + +-------+--------+ +--------+--------+--------+ | Zilver 14 X | Stent | Right: | | | | [id number] | | 60-09/11/2016Implanted: | | | | | | / | | 09/11/2016 by Jimenez Garnica, | | [employer] | | | | /[id number] | | PhD (Quantity not on | | vian | | | | 524 | | file) | | | | | | | + +-------+--------+ +--------+--------+--------+ | Hemodialysis Catheter 12x20 | | Left: | | | 04/14/ | [id number] | | Curved - Sn/AImplanted: Qty: | [...] | Left: | | | 02/22/ | [id number] | | Pre Cvd Group Home Std | | Neck | | | 2012 | 0 | | Hemosplit 14.5 24cm - | | | | | | /[id number] | | [id number]: Qty: 1 on | | | | [...] +------+-------+ + | MEDICARE | MEDICA | [id number] | | | [address] | | | RE | | | | [place], [place] [address] | | | IP-OP | | | | | + +--------+ +------+-------+ + | MEDICAID | MEDICA | [id number] | | | [address] | | | ID | | | | [place] | | | [place] | | | | [address] | + +--------+ +------+-------+ + | [facility] | YELLOW | [id number] | | | | | PLANS | [...] | Self | [birth year] | Home: | [address] | | | [place] | | 1965 | [phone] | [place] | | | juan | | | [phone] | [phone] | + +--------+ +--------+ + +
--- OUTSIDE RECORDS SUMMARY | ~2018-03-24 | XMS | Encounter Summary ---
Demographics + + + | Address | [address] | | | [place] [address] | + + + | Home Phone | | + + + | Preferred Language | Unknown | + + + | Marital Status | | + + + | Episcopal Affiliation | 1076 | + + + | Race | Unknown | + + + | Ethnic Group | Unknown | + + + Author + + + | Author | [employer] | + + + | Organization | [employer] | + + + | Address [...] Providers + +------+ + | Care Recovery Advocate Name | Role | Phone | [...] | | 2018 | on Only | [place] [address] | [address] | 2018-[facility] Provider | | | | [address] | [address] [place], [place] | Dialysis Rounding | | | | [place] [address] | [phone] | Note) | | | | [phone] | | | +--------+ + + + [...]
--- OUTSIDE RECORDS SUMMARY | ~2018-03-24 | XMS | Clinical Summary ---
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/22/2017 | + + + | Psoriasis-like skin disease | 02/19/2017 | + + + | Eczema of both upper extremities | 02/16/2017 | + + + | S/P pericardiocentesis | 09/12/2016 | + + + | Hyponatremia | 09/08/2016 | + + + | Polysubstance abuse ([facility]) | 04/28/2016 | + + [...] + | Mother | | | from [place] | | | | (Age | | [...] Stent | Right: | | | | [id number] | | 40-09[birth year]11[birth year]2016Implanted: | | | | | | / | | 09/11/2016 by Jimenez Garnica, | | [employer] | | | | /[id number] | | PhD (Quantity not on | | vian | | | | 669 | | file) | | | | | | | + +-------+--------+ +--------+--------+--------+ | Zilver 14 X | Stent | Right: | | | | [id number] | | 60-09/11/2016Implanted: | | | | | | / | | 09/11/2016 by Jimenez Garnica, | | [employer] | | | | /[id number] | | PhD (Quantity not on | | vian | | | | 524 | | file) | | | | | | | + +-------+--------+ +--------+--------+--------+ | Hemodialysis Catheter 12x20 | | Left: | | | 04/14/ | [id number] | | Curved - Sn/AImplanted: Qty: | [...] | Left: | | | 02/22/ | [id number] | | Pre Cvd Senior Living Std | | Neck | | | 2012 | 0 | | Hemosplit 14.5 24cm - | | | | | | /[id number] | | [id number]: Qty: 1 on | | | | [...] +------+-------+ + | MEDICARE | MEDICA | [id number] | | | [address] | | | RE | | | | [place], [place] [address] | | | IP-OP | | | | | + +--------+ +------+-------+ + | MEDICAID | MEDICA | [id number] | | | [address] | | | ID | | | | [place] | | | [place] | | | | [address] | + +--------+ +------+-------+ + | [facility] | YELLOW | [id number] | | | | | PLANS | [...] | Self | [birth year] | Home: | [address] | | | [place] | | 1965 | [phone] | [place] | | | juan | | | [address] | [phone] | + +--------+ +--------+ + +
--- OUTSIDE RECORDS SUMMARY | ~2018-03-24 | XMS | Encounter Summary ---
Demographics + + + | Address | [address] | | | [place] [address] | + + + | Home Phone | | + + + | Preferred Language | Unknown | + + + | Marital Status | Unknown | + + + | Anglican Affiliation | Unknown | + + + | Race | Unknown | + + + | Ethnic Group | Unknown | + + + Author + + + | Author | [facility] | | | and Juanana | + + + | Organization | [facility] | | | and Juanana | + + + | Address | Unknown | + + + | Phone | Unavailable | + + + Care Team Providers + +------+ + | Care Congressional Aide Name | Role | Phone | + [...] [place] | | | | | | [address] | | | | | | [phone] | | | +--------+ + + + [...]
--- OUTSIDE RECORDS SUMMARY | ~2018-03-24 | XMS | Clinical Summary ---
Demographics + + + | Address | [address] | | | [place] [address] | + + + | Home Phone | | + + + | Preferred Language | Unknown | + + + | Marital Status | Unknown | + + + | Hinduism Affiliation | Unknown | + + + | Race | Unknown | + + + | Ethnic Group | Unknown | + + + Author + + + | Author | [facility] | | | and Juanana | + + + | Organization | [facility] | | | and Juanana | + + + | Address | Unknown | + + + | Phone | Unavailable | + + + Care Team Providers + +------+ + | Care Manager Reading Name | Role | Phone | + [...] + + + + | Overview: JAMIL [id number] Decision | + + + +---+ | [...]
--- OUTSIDE RECORDS SUMMARY | ~2018-03-24 | XMS | Encounter Summary ---
Demographics + + + | Address | [address] | | | [place] [address] | + + + | Home Phone | | + + + | Preferred Language | Unknown | + + + | Marital Status | Unknown | + + + | Anabaptism Affiliation | Unknown | + + + | Race | Unknown | + + + | Ethnic Group | Unknown | + + + Author + + + | Author | [facility] | | | and Juanana | + + + | Organization | [facility] | | | and Juanana | + + + | Address | Unknown | + + + | Phone | Unavailable | + + + Care Team Providers + +------+ + | Care Nanoscience Technician Name | Role | Phone | [...] [place] | | | | | | [address] | | | | | | [phone] | | | +--------+ + + + [...]
--- OUTSIDE RECORDS SUMMARY | ~2018-03-24 | XMS | Encounter Summary ---
Demographics + + + | Address | [address] | | | [place] [address] | + + + | Home Phone | | + + + | Preferred Language | Unknown | + + + | Marital Status | | + + + | Muslim Affiliation | 1076 | + + + | Race | Unknown | + + + | Ethnic Group | Unknown | + + + Author + + + | Author | [employer] | + + + | Organization | [employer] | + + + | Address [...] Team Providers + +------+ + | Care Convenience Recycle Center Tech Name | Role | Phone | [...] | | 2017 | on Only | [place] [address] | [address] | 2018-[facility] Provider | | | | [address] | [address] [place], [place] | Rounding Dialysis | | | | [place] [address] | [address] | Note) | | | | [phone] | | | +--------+ + + + [...]
--- OUTSIDE RECORDS SUMMARY | ~2018-03-24 | XMS | Encounter Summary ---
Demographics + + + | Address | [address] | | | [place] [address] | + + + | Home Phone | | + + + | Preferred Language | Unknown | + + + | Marital Status | | + + + | Voodoo Affiliation | 1076 | + + + | Race | Unknown | + + + | Ethnic Group | Unknown | + + + Author + + + | Author | [facility] | + + + | Organization | [facility] [facility] | + + + | Address [...] Team Providers + +------+ + | Care Mixing Picker Tender Name | Role | Phone [...] | | 2017 | on Only | [place] [address] | [address] | 2018-[facility] Provider | | | | [address] | [address] [place], [place] | Dialysis Rounding | | | | [place] [address] | [address] | Note) | | | | [phone] | | | +--------+ + + + [...]
--- OUTSIDE RECORDS SUMMARY | ~2018-03-24 | XMS | Clinical Summary ---
Demographics + + + | Address | [address] | | | [place] [address] | + + + | Home Phone | | + + + | Preferred Language | Unknown | + + + | Marital Status | Unknown | + + + | Anabaptist Affiliation | Unknown | + + + | Race | Unknown | + + + | Ethnic Group | Unknown | + + + Author + + + | Author | [facility] | | | and Juanana | + + + | Organization | [facility] | | | and [place] | + + + | Address | Unknown | + + + | Phone | Unavailable | + + + Care Team Providers + +------+ + | Care Paper Machine Tender Name | Role | Phone [...] + + + + | Overview: JAMIL [id number] Decision | + + + +---+ | [...]
[~2018-03-24 09:17] MED LIST changes: +CILOXAN5 ML OD
--- OUTSIDE RECORDS SUMMARY | 2018-03-24 09:22 | XMS ---
PreManage Notification: CAROL STANTON Security Machine Stuffer Events No recent Security Events currently on file CRITERIA MET - Group Notification - 6 ED Visits in 6 Months - [facility] - 2 Visits in 30 Days CARE PROVIDERS ROSA LOFTON [facility] 01/24/2018-Current PHONE: [phone] Reinaldo has no Care Guidelines for this patient. Care History Medical/Surgical 02/13/2018 [facility] - PATIENT IS FOLLOWING VERY CLOSELY WITH [facility] PROJECT MANAGEMENT ANALYST HARDIK WATSON. - PLEASE CALL SHIRLEY AT [phone] IF PATIENT IS SEEN IN THE ED. 02/04/2018 [facility] - PATIENT IS CURRENTLY ON COUMADIN AND DIALYSIS TREATMENTS. 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 - PATIENT WAS LAST SEEN BY PCP ON 01/16. - PATIENT PCP DOES NOT PROVIDE PAIN MEDICATIONS TO PATIENT Care Recommendation: - USE EXTREME CAUTION IN GIVING NARCOTICS TO THIS PATIENT. - Avoid Discharge Narcotic prescriptions if at all possible. Please use clinical judgement. 09/02/2017 [facility] -Patient works with [facility] occupational therapy specialist team last seen patient on 01/23/18. -Patient receives INR draws from [facility]. -Patient does have concerns with patient memory. Care Recommendation: This patient has had 5 or more Emergency Department visits in the last 12 months.\T\nbsp; Patient requires education on the scope and purpose of the ED as an acute care provider not a Primary Care Provider and should not be utilized for chronic conditions.\T\nbsp; If patient returns to ED please contact Community Health Worker Betzy at [phone]. These are guidelines and the provider should exercise clinical judgment when providing care. E.D. VISIT COUNT (12 MO.) 3 [facility] [address] [facility] 9 NEISHA Blakely TOTAL 13 NOTE: Visits indicate total known visits. ED/C VISIT TRACKING (12 MO.) 03/24/2018 09:18 NEISHA Hernandez [place] TYPE: Emergency COMPLAINT: - VOMITING/DIARRHEA 02/23/2018 13:08 [facility] [place] TYPE: Emergency COMPLAINT: - RT EYE PAIN DIAGNOSES: - Allergy status to other drugs, medicaments and biological substances status - Unspecified conjunctivitis - End stage renal disease - Dependence on renal dialysis - Hypertensive chronic kidney disease with stage 5 chronic kidney disease or end stage renal disease - Allergy status to penicillin - Type 2 diabetes mellitus with diabetic chronic kidney disease - Ocular pain, right eye 02/11/2018 04:18 [facility] [place] TYPE: Emergency COMPLAINT: - R/O HEAD/NECK INJURY DIAGNOSES: - Type 2 diabetes mellitus with diabetic chronic kidney disease - Allergy status to penicillin - Strain of muscle, fascia and tendon at neck level, initial encounter - Gastro-esophageal reflux disease without esophagitis - Other terminal carman (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 - Cervicalgia - Hypothyroidism, unspecified - Allergy status to other drugs, medicaments and biological substances status - Other fall from one level to another, initial encounter - End stage renal disease - Hypertensive chronic kidney disease with stage 5 chronic kidney disease or end stage renal disease - Dependence on renal dialysis - Allergy status to other antibiotic agents status - snf (current) use of anticoagulants - Unspecified asthma, uncomplicated 02/03/2018 15:04 NEISHA Pichardo TYPE: Emergency COMPLAINT: - HEAD PAIN/NO INJURY DIAGNOSES: - Personal history of nicotine dependence - Type 2 diabetes mellitus with diabetic chronic kidney disease - End stage renal disease - Headache - Other group home (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 - Dependence on renal dialysis - Hypothyroidism, unspecified - Allergy status to other antibiotic agents status - Allergy status to other drugs, medicaments and biological substances status - terminal system operator (current) use of anticoagulants - Allergy status to penicillin - Hypertensive chronic kidney disease with stage 5 chronic kidney disease or end stage renal disease 02/03/2018 10:59 [facility] Roger HARDWICK TYPE: Emergency DIAGNOSES: - MARTINEZ/eye pain - Procedure and treatment not carried out due to patient leaving prior to being seen by health care provider 01/23/2018 13:43 NEISHA [place] TYPE: Emergency COMPLAINT: - HEAD PAIN/NO INJURY DIAGNOSES: - Personal history of nicotine dependence - Dependence on renal dialysis - Type 2 diabetes mellitus with diabetic chronic kidney disease - terminal system operator (current) use of anticoagulants - Allergy status to other drugs, medicaments and biological substances status - Allergy status to penicillin - Headache - Local infection of the skin and subcutaneous tissue, unspecified - End stage renal disease - Other terminal carman (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 - Pruritus, unspecified - Hypertensive chronic kidney disease with stage 5 chronic kidney disease or end stage renal disease 12/31/2017 20:56 [facility] [place] TYPE: Emergency COMPLAINT: - SOB DIAGNOSES: - Allergy status to other drugs, medicaments and biological substances status - Type 2 diabetes mellitus with diabetic chronic kidney disease - Allergy status to penicillin - Acute bronchospasm - Hypertensive chronic kidney disease with stage 1 through stage 4 chronic kidney disease, or unspecified chronic kidney disease - Gastro-esophageal reflux disease without esophagitis - Other group home (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 - End stage renal disease - Personal history of nicotine dependence - Allergy status to other antibiotic agents status - Dependence on renal dialysis 10/07/2017 03:15 [facility] TYPE: Emergency DIAGNOSES: - Pain, unspecified - Other specified soft tissue disorders - Cellulitis of right upper limb 10/06/2017 23:36 NEISHA [place] TYPE: Emergency COMPLAINT: - CHEST PAIN DIAGNOSES: - Type 2 diabetes mellitus with diabetic chronic kidney disease - Dependence on renal dialysis - Chronic kidney disease, unspecified - Allergy status to other drugs, medicaments and biological substances status - Personal history of nicotine dependence - Allergy status to other antibiotic agents status - Gastro-esophageal reflux disease without esophagitis - Other group home (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 - Hypertensive chronic kidney disease with stage 1 through stage 4 chronic kidney disease, or unspecified chronic kidney disease - Other specified soft tissue disorders - Allergy status to penicillin - Cellulitis of right upper limb 10/05/2017 12:32 [facility] TYPE: Emergency DIAGNOSES: - Dependence on renal dialysis - Cellulitis of right upper limb - Vascular Access Problem - End stage renal disease 08/30/2017 19:01 NEISHA Pichardo TYPE: Emergency COMPLAINT: - R EYE PAIN DIAGNOSES: - Allergy status to penicillin - Type 2 diabetes mellitus without complications - Atherosclerotic heart disease of tangirnaq coronary artery without angina pectoris - Ocular pain, right eye - Hypothyroidism, unspecified - Hypertensive chronic kidney disease with stage 5 chronic kidney disease or end stage renal disease - Other group home (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 - Exposure to other specified factors, subsequent encounter - Injury of conjunctiva and corneal abrasion without foreign body, right eye, subsequent encounter - Allergy status to other drugs, medicaments and biological substances status - End stage renal disease - Dependence on renal dialysis - Unspecified corneal ulcer, right eye - Allergy status to other antibiotic agents status 07/22/2017 13:28 [facility] TYPE: Emergency DIAGNOSES: - Referral - Skin Complaint 04/26/2017 15:19 NEISHA Pichardo TYPE: Emergency COMPLAINT: - IV ANTIBIOTIC REQUEST DIAGNOSES: - Allergy status to penicillin - Hypertensive chronic kidney disease with stage 5 chronic kidney disease or end stage renal disease - Type 2 diabetes mellitus with diabetic chronic kidney disease - Allergy status to other drugs, medicaments and biological substances status - Dependence on renal dialysis - End stage renal disease - Unspecified asthma, uncomplicated - Gastro-esophageal reflux disease without esophagitis - Atherosclerotic heart disease of tangirnaq coronary artery without angina pectoris - Other group home (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 - Hypothyroidism, unspecified - Periapical abscess without sinus INPATIENT VISIT TRACKING (12 MO.) 10/07/2017 03:15 [facility] TYPE: Recovery DIAGNOSES: - Pain, unspecified - End stage renal disease - Compression of vein - Other specified soft tissue disorders - Anemia in chronic kidney disease - Dependence on renal dialysis - Bacteremia - Other disorders of plasma-protein metabolism, not elsewhere classified - Cellulitis of right upper limb - Infection and inflammatory reaction due to other cardiac and vascular devices, implants and grafts, subsequent encounter 07/22/2017 13:28 [facility] DIAGNOSES: - End stage renal disease - Unspecified complication of cardiac and vascular prosthetic device, implant and graft, initial encounter - Referral - Infection and inflammatory reaction due to other cardiac and vascular devices, implants and grafts, subsequent encounter - Dependence on renal dialysis - Skin Complaint - Methicillin resistant Staphylococcus aureus infection, unspecified site [email or web address]
== END 2018-03-24 11:53 | disposition home or self-care (01) ==
LOC: ED 09:17
DX: R19.7 Diarrhea, unspecified (principal); I25.10 Atherosclerotic heart disease of native coronary artery without angina pectoris; J45.909 Unspecified asthma, uncomplicated; E03.9 Hypothyroidism, unspecified; K21.9 Gastro-esophageal reflux disease without esophagitis; I12.0 Hypertensive chronic kidney disease with stage 5 chronic kidney disease or end stage renal disease; E11.22 Type 2 diabetes mellitus with diabetic chronic kidney disease; N18.6 End stage renal disease; Z88.0 Allergy status to penicillin; Z88.8 Allergy status to other drugs, medicaments and biological substances; Z88.1 Allergy status to other antibiotic agents; Z79.899 Other long term (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; Z79.01 Long term (current) use of anticoagulants
CPT/HCPCS: 80053; 85025; 96374; 96375; 99284; J1885; J2405

== ENCOUNTER 2018-03-26 10:51 | Emergency (ER) | payer MEDICARE, OTHER ==
[~2018-03-26] VITALS: Ht 170.2 cm; Wt 80.3 kg
--- OUTSIDE RECORDS SUMMARY | ~2018-03-26 | XMS | Encounter Summary ---
Demographics + + + | Address | [address] | | | [place] [address] | + + + | Home Phone | | + + + | Preferred Language | Unknown | + + + | Marital Status | Unknown | + + + | Congregation Affiliation | Unknown | + + + | Race | Unknown | + + + | Ethnic Group | Unknown | + + + Author + + + | Author | [facility] | | | and [place] | + + + | Organization | [facility] | | | and [place] | + + + | Address | Unknown | + + + | Phone | Unavailable | + + + Care Team Providers + +------+ + | Care Medical Billing Coder Name | Role | Phone | + +------+ + PCP | Unavailable | + +------+ + Encounter Details +--------+ + + + + | Date | Type | Department | Care Team | Description | +--------+ + + + + | 02/03/ | Emergency | [facility] | No, Physician | Patient left without | | 2018 | | [facility] | | being seen (Primary | | | | CENTER [address] | | Dx) | | | | [place] | | | | | | [address] | | | | | | [phone] | | | +--------+ + + + [...] + + + as of this encounter Medications at Time of Discharge + + +-------+---------+ + + | Medication | Sig. | Disp. | Refills | Start | End Date | | | | | | Date | | + + +-------+---------+ + + | albuterol (PROAIR | 2 puffs inhaled | | | 03/07/20 | | | HFA) 90 mcg/puff | every 4 hours as | | | 12 | | | inhaler | needed for shortness | | | | | | | of breath | | | | | + + +-------+---------+ + + | allopurinol | 1 tablet by mouth | | | 03/07/20 | | | (ZYLOPRIM) 100 [...] | | | | | + + +-------+---------+ + + | aspirin 81 mg EC | Take 81 mg by mouth | | | 03/07/20 | | | tablet | Daily. | | | 12 | | + + +-------+---------+ + + | | Use 1 pad to wipe | | | 03/07/20 | | | Benzocaine-Isopropyl | area as directed | | | 12 | | | Alcohol (ALCOHOL | | | | | | | SWABS WITH | | | | | | | BENZOCAINE) 6-70 % | | | | | | | PADS | | | | | | + + +-------+---------+ + + | betamethasone | Apply a small amount | | | 03/07/20 | | | valerate (VALISONE) | to scalp once or | | | 12 | | | 0.1 % lotion | twice a day | | | | | + + +-------+---------+ + + | Blood Glucose | Use as directed by | | | 03/07/20 | | | Monitoring Suppl | physician | | | 12 | | | (CONTOUR BLOOD | | | | | | | GLUCOSE SYSTEM) GORGE | | | | | | + + +-------+---------+ + + | ergocalciferol | Take 50,000 Units by | | | 03/07/20 | | | (VITAMIN D-2) 50,000 | mouth Once a week. | | | 12 | | | units capsule | | | | | | + + +-------+---------+ + + | ferrous sulfate | 1 tablet by mouth | | | 03/07/20 | | | 325 mg tablet | twice daily with | | | 12 | | | | meals | | | | | + + +-------+---------+ + + | | Inhale 1 puff by | | | 03/07/20 | | | fluticasone-salmeter | mouth twice a day | | | 12 | | | ol (ADVAIR DISKUS) | for asthma; use | | | | | | 100-50 mcg/puff | morning and evening | | | | | | diskus inhaler | every day | | | | | + + +-------+---------+ + + | hydrophilic | Apply a small amount | | | 03/07/20 | | | ointment | to affected areas | | | 12 | | | | three times a day to | | | | | | | feet as directed. | | | | | | | Apply to ears as | | | | | | | directed. | | | | | + + +-------+---------+ + + | hydrOXYzine | One tablet by mouth | | | 03/07/20 | | | (ATARAX) 25 MG | every 6 hours if | | | 12 | | | tablet | needed. May cause | | | | | | | drowsiness. | | | | | + + +-------+---------+ + + | lidocaine | Apply a small amount | | | 03/07/20 | | | (XYLOCAINE JELLY) 2% | to affected area | | | 12 | | | jelly | | | | | | + + +-------+---------+ + + | metformin | Take 2-1/2 tablets | | | 03/07/20 | | | (GLUCOPHAGE) 1000 MG | by mouth every | | | 12 | | | tablet | evening with food or | | | | | | | milk for diabetes | | | | | + + +-------+---------+ + + | simvastatin | Take 20 mg by mouth | | | 03/07/20 | | | (ZOCOR) 20 mg tablet | every evening. | | | 12 | | + + +-------+---------+ + + | TechLite Lancets | Use as directed by | | | 03/07/20 | | | MISC | physician | | | 12 | | + + +-------+---------+ + + | telmisartan | Take 40 mg by mouth | | | 03/07/20 | | | (MICARDIS) 40 mg | Daily. | | | 12 | | | tablet | | | | | | + + +-------+---------+ + + as of this encounter Plan of Treatment Not on fileas of this encounter Visit Diagnoses + + | Diagnosis | + + | Patient left without being seen - Primary | + + | Surgical or other procedure not carried out because of patient's decision | + +"
--- OUTSIDE RECORDS SUMMARY | ~2018-03-26 | XMS | Encounter Summary ---
Demographics + + + | Address | [address] | | | [place] [address] | + + + | Home Phone | | + + + | Preferred Language | Unknown | + + + | Marital Status | | + + + | Lutheran Affiliation | 1076 | + + + | Race | Unknown | + + + | Ethnic Group | Unknown | + + + Author + + + | Author | [employer] | + + + | Organization | [employer] | + + + | Address [...] Team Providers + +------+ + | Care Wood Tank Builder Name | Role | Phone | + +------+ + | Andry Deng MD | PCP | | + +------+ + Reason for Visit +--------+ + | Reason | Comments | +--------+ + | Other | November 2017-[facility] Provider [facility] Note | +--------+ + Encounter Details +--------+ + + + + | Date | Type | Department | Care Team | Description | +--------+ + + + + | 12/27/ | Documentati | [facility] | Jayy Christianson MD | Other (November | | 2017 | on Only | [place] [address] | [address] | 2018-[facility] Provider | | | | [address] | [address] [place], [place] | Rounding Dialysis | | | | [place] [address] | [address] | Note) | | | | [phone] | | | +--------+ + + + [...]
--- OUTSIDE RECORDS SUMMARY | ~2018-03-26 | XMS | Encounter Summary ---
Demographics + + + | Address | [address] | | | [place] [address] | + + + | Home Phone | | + + + | Preferred Language | Unknown | + + + | Marital Status | Unknown | + + + | Anabaptist Affiliation | Unknown | + + + | Race | Unknown | + + + | Ethnic Group | Unknown | + + + Author + + + | Author | [facility] | | | and [place] | + + + | Organization | [facility] | | | and [place] | + + + | Address | Unknown | + + + | Phone | Unavailable | + + + Care Team Providers + +------+ + | Care Medicaid Billing Specialist Name | Role | Phone | [...] [place] | | | | | | [address] | | | | | | [phone] | | | +--------+ + + + [...]
--- OUTSIDE RECORDS SUMMARY | ~2018-03-26 | XMS | Clinical Summary ---
Demographics + + + | Address | [address] | | | [place] [address] | + + + | Home Phone | | + + + | Preferred Language | Unknown | + + + | Marital Status | Unknown | + + + | Episcopal Affiliation | Unknown | + + + | Race | Unknown | + + + | Ethnic Group | Unknown | + + + Author + + + | Author | [facility] | | | and [place] | + + + | Organization | [facility] | | | and [place] | + + + | Address | Unknown | + + + | Phone | Unavailable | + + + Care Team Providers + +------+ + | Care Maintenance Person Name | Role | Phone | + [...] + + + + | Overview: JAMIL [id number] Decision | + + + +---+ | [...] + +--------+---+ | ASTHMA | | +--------+---+ Encounters +--------+ + + + + | Date | Type | Specialty | Care Team | Description | +--------+ + + + + | 02/03/ | Emergency | | No, Physician | Patient left without | | 2018 | | | | being seen (Primary | | | | | | Dx) | +--------+ + + + + from Last 3 Months Social History + +-------+ +--------+------+ | Tobacco [...] + + + + | Vaccine: | 10/06/198 | | | | Dtap/Tdap/Td (1 - | 2 | | | | Tdap) | | | | + + + + + | Vaccine: Influenza | | | | | (#1) | 8 | | | + + + + + Results Not on filefrom Last 3 Months
--- OUTSIDE RECORDS SUMMARY | ~2018-03-26 | XMS | Clinical Summary ---
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 | + + + | Psoriasis-like skin disease | 02/19/2017 | + + + | Eczema of both upper extremities | 02/16/2017 | + + + | S/P pericardiocentesis | 09/12/2016 | + + + | Hyponatremia | 09/08/2016 | + + + | Polysubstance abuse ([facility]) | 04/28/2016 | + + + | [...] | +--------+ + + + + | 09/04/ | Documentati | | Jayy Christianson MD | Other (January | on Only | | | 2017-[facility] Provider | | | | | | Dialysis Rounding | | | | | | Note) | +--------+ + + + + | 01/24/ | Documentati | | Jayy Christianson MD | Other (December | on Only | | | 2017-[facility] Provider | | | | | | Dialysis Rounding | | | | | | Note) | +--------+ + + + + | 12/27/ | Documentati | | Jayy Christianson MD | Other (November | on Only | | | 2017-[facility] [...] + | Mother | | | from [place] | | | | (Age | | [...] Stent | Right: | | | | [id number] | | 40-09[birth year]11/2018Implanted: | | | | | | / | | 09/11/2016 by Jimenez Garnica, | | [employer] | | | | [id number] | | PhD (Quantity not on | | vian | | | | 669 | | file) | | | | | | | + +-------+--------+ +--------+--------+--------+ | Zilver 14 X | Stent | Right: | | | | [id number] | | [birth year]-09/11/2016Implanted: | | | | | | / | | 09/11/2016 by Jimenez Garnica, | | [employer] | | | | [id number] | | PhD (Quantity not on | | vian | | | | 524 | | file) | | | | | | | + +-------+--------+ +--------+--------+--------+ | Hemodialysis Catheter 12x20 | | Left: | | | 04/14/ | [id number] | | Curved - Sn/AImplanted: Qty: | [...] | Left: | | | 02/22/ | [id number] | | Pre Cvd Intermediate Std | | Neck | | | 2012 | 0 | | Hemosplit 14.5 24cm - | | | | | | /[id number] | | [id number]: Qty: 1 on | | | | [...] +------+-------+ + | MEDICARE | MEDICA | [id number] | | | [address] | | | RE | | | | [place], [place] [address] | | | IP-OP | | | | | + +--------+ +------+-------+ + | MEDICAID | MEDICA | [id number] | | | [address] | | | ID | | | | [place] | | | [place] | | | | [address] | + +--------+ +------+-------+ + | MEARS/[employer] | YELLOW | [id number] | | | | | PLANS | [place] | | | | | + +--------+ +------+-------+ + + +--------+ +--------+ + + | Guarantor Name | Accoun | Relation to | Date | Phone | Billing Address | | | t Type | Patient | of | | | | | | | | | | + +--------+ +--------+ + + | ENRIQUE STANTON | Person | Self [birth year] | Home: | [address] | | | nanette/Leoncio | | 1965 | [phone] [place] | | | juan | | | [phone] | [phone] | + +--------+ +--------+ + +
--- OUTSIDE RECORDS SUMMARY | ~2018-03-26 | XMS | Encounter Summary ---
Demographics + + + | Address | [address] | | | [place] [address] | + + + | Home Phone | | + + + | Preferred Language | Unknown | + + + | Marital Status | | + + + | Gnosticist Affiliation | 1076 | + + + | Race | Unknown | + + + | Ethnic Group | Unknown | + + + Author + + + | Author | [facility] | + + + | Organization | [employer] | + + + | Address [...] Team Providers + +------+ + | Care Shaper And Presser Name | Role | Phone | + [...] | | 2017 | on Only | [place] [address] | [address] | 2018-[facility] Provider | | | | [address] | [address] [place], [place] | Dialysis Rounding | | | | [place] [address] | [address] | Note) | | | | [phone] | | | +--------+ + + + [...]
--- OUTSIDE RECORDS SUMMARY | ~2018-03-26 | XMS | Clinical Summary ---
Demographics + + + | Address | [address] | | | [place] [address] | + + + | Home Phone [...] + + + | Organization | [facility] | | | and [place] | + + + | Address | Unknown | + + + | Phone | Unavailable | + + + Care Team Providers + +------+ + | Care Cotton Roll Packer Name | Role | Phone | [...] + + + + | Overview: JAMIL [id number] Decision | + + + +---+ | [...]
--- OUTSIDE RECORDS SUMMARY | ~2018-03-26 | XMS | Encounter Summary ---
Demographics + + + | Address | [address] | | | [place] [address] | + + + | Home Phone | | + + + | Preferred Language | Unknown | + + + | Marital Status | | + + + | Mosque Affiliation | 1076 | + + + | Race | Unknown | + + + | Ethnic Group | Unknown | + + + Author + + + | Author | [employer] | + + + | Organization | [employer] | + + + | Address [...] Team Providers + +------+ + | Care Pot Press Operator Name | Role | Phone [...] | | 2018 | on Only | [place] [address] | [address] | 2018-[facility] Provider | | | | [address] | [address] [place], [place] | Dialysis Rounding | | | | [place] [address] | [address] | Note) | | | | [phone] | | | +--------+ + + + [...]
--- OUTSIDE RECORDS SUMMARY | ~2018-03-26 | XMS | Encounter Summary ---
Demographics + + + | Address | [address] | | | [place] [address] | + + + | Home Phone | | + + + | Preferred Language | Unknown | + + + | Marital Status | | + + + | Roman Catholic Affiliation | 1076 | + + + | Race | Unknown | + + + | Ethnic Group | Unknown | + + + Author + + + | Author | [employer] | + + + | Organization | [employer] | + + + | Address [...] Providers + +------+ + | Care Licensed Direct Entry Midwife Name | Role | Phone | + [...] | | 2017 | on Only | [place] [address] | [address] | [facility] | | | | [address] | [address] [place], [place] | Rounding Dialysis | | | | [place] [address] | [address] | Note) | | | | [phone] | | | +--------+ + + + [...]
--- OUTSIDE RECORDS SUMMARY | ~2018-03-26 | XMS | Encounter Summary ---
Demographics + + + | Address | [address] | | | [place] [address] | + + + | Home Phone | | + + + | Preferred Language | Unknown | + + + | Marital Status | | + + + | Episcopal Affiliation | 1076 | + + + | Race | Unknown | + + + | Ethnic Group | Unknown | + + + Author + + + | Author | [employer] | + + + | Organization | [employer] [facility] | + + + | Address [...] Team Providers + +------+ + | Care Underwriting Operations Manager Name | Role | Phone | [...] | | 2017 | on Only | [place] [address] | [address] | 2018-[facility] Provider | | | | [address] | [address] [place], [place] | Dialysis Rounding | | | | [place] [address] | [address] | Note) | | | | [phone] | | | +--------+ + + + [...]
--- OUTSIDE RECORDS SUMMARY | ~2018-03-26 | XMS | Clinical Summary ---
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 | + + + [...] + | Mother | | | from [place] | | | | (Age | | [...] Stent | Right: | | | | [id number] | | 40-09[birth year]11[birth year]2016Implanted: | | | | | | / | | 09/11/2016 by Jimenez Garnica, | | [employer] | | | | [id number] | | PhD (Quantity not on | | vian | | | | 669 | | file) | | | | | | | + +-------+--------+ +--------+--------+--------+ | Zilver 14 X | Stent | Right: | | | | [id number] | | 60-09/11/2016Implanted: | | | | | | / | | 09/11/2016 by Jimenez Garnica, | | [employer] | | | | [id number] | | PhD (Quantity not on | | vian | | | | 524 | | file) | | | | | | | + +-------+--------+ +--------+--------+--------+ | Hemodialysis Catheter 12x20 | | Left: | | | 04/14/ | [id number] | | Curved - Sn/AImplanted: Qty: | [...] | Left: | | | 02/22/ | [id number] | | Pre Cvd Mcfp Std | | Neck | | | 2012 | 0 | | Hemosplit 14.5 24cm - | | | | | | [id number] | | [id number]: Qty: 1 on | | | | [...] +------+-------+ + | MEDICARE | MEDICA | [id number] | | | [address] | | | RE | | | | [place], [place] [address] | | | IP-OP | | | | | + +--------+ +------+-------+ + | MEDICAID | MEDICA | [id number] | | | [address] | | | ID | | | | [place] | | | [place] | | | | [address] | + +--------+ +------+-------+ + | [place] [facility] | YELLOW | [id number] | | | | | PLANS | [...] | Self [birth year] Home: | [address] | | | nanette/Leoncio | | 1965 | [phone] [place] | | | juan | | | [phone] | [phone] | + +--------+ +--------+ + +
--- OUTSIDE RECORDS SUMMARY | ~2018-03-26 | XMS | Encounter Summary ---
Demographics + + + | Address | [address] | | | [place] [address] | + + + | Home Phone | | + + + | Preferred Language | Unknown | + + + | Marital Status | | + + + | Alevism Affiliation | 1076 | + + + | Race | Unknown | + + + | Ethnic Group | Unknown | + + + Author + + + | Author | [employer] | + + + | Organization | [employer] | + + + | Address [...] Team Providers + +------+ + | Care Bench Molder Apprentice Name | Role | Phone | [...] | | 2018 | on Only | [address] | 2018-[facility] Provider | | | | [address] | [address] [place], [place] | Dialysis Rounding | | | | [place] [address] | [address] | Note) | | | | [phone] | | | +--------+ + + + [...]
--- OUTSIDE RECORDS SUMMARY | 2018-03-26 10:56 | XMS ---
PreManage Notification: CAROL STANTON Security Public Health Assistant Events No recent Security Events currently on file CRITERIA MET - Group Notification - 6 ED Visits in 6 Months - [facility] - 2 Visits in 30 Days CARE PROVIDERS ROSA LOFTON [facility] 01/24/2018-Current PHONE: [phone] Reinaldo has no Care Guidelines for this patient. Care History Medical/Surgical 02/13/2018 [facility] - PATIENT IS FOLLOWING VERY CLOSELY WITH [facility] JUNIOR ARCHITECT HARDIK WATSON. - PLEASE CALL SHIRLEY AT [phone] IF PATIENT IS SEEN IN THE ED. - PATIENT HAS A LONG EXTENSIVE HX WITH METHAMPHETAMINE USAGE. - PHYSICIAN DISCRETION- TOX SCREEN BEFORE TREATMENT. Care Recommendation: - USE EXTREME CAUTION IN GIVING NARCOTICS TO THIS PATIENT. - Avoid Discharge Narcotic prescriptions if at all possible. Please use clinical judgement. 02/04/2018 [facility] - PATIENT IS CURRENTLY ON COUMADIN AND [...] all possible. Please use clinical judgement. 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 -Patient receives INR draws from [facility]. -Patient does have concerns with patient memory. Care Recommendation: This patient has had 5 or more Emergency Department visits in the last 12 months.\T\nbsp; Patient requires education on the scope and purpose of the ED as an acute care provider not a Primary Care Provider and should not be utilized for chronic conditions.\T\nbsp; If patient returns to ED please contact Community Health WorkerBetzy at [phone]. These are guidelines and the provider should exercise clinical judgment when providing care. E.D. VISIT COUNT (12 MO.) 3 [facility] 1 [facility] 10 [facility] TOTAL 14 NOTE: Visits indicate total known visits. ED/C VISIT TRACKING (12 MO.) 03/26/2018 10:51 [facility] [place] TYPE: Emergency COMPLAINT: - CHEST PAIN 03/24/2018 09:18 [facility] [place] TYPE: Emergency [...] Gastro-esophageal reflux disease without esophagitis - Other retirement (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 - Cervicalgia - Hypothyroidism, [...] status to other antibiotic agents status - termite renewal inspector (current) use of anticoagulants - Unspecified asthma, uncomplicated 02/03/2018 15:04 [facility] [place] TYPE: Emergency COMPLAINT: - HEAD PAIN/NO INJURY DIAGNOSES: - Personal history of nicotine dependence - Type 2 diabetes mellitus with diabetic chronic kidney disease - End stage renal disease - Headache - Other retirement (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 - Dependence on renal dialysis - Hypothyroidism, unspecified - Allergy status to other antibiotic agents status - Allergy status to other drugs, medicaments and biological substances status - termite renewal inspector (current) use of anticoagulants - Allergy status to penicillin - Hypertensive chronic kidney disease with stage 5 chronic kidney disease or end stage renal disease [facility]2018 [facility] DIAGNOSES: - MARTINEZ/eye pain - Procedure and treatment not carried out due to patient leaving prior to being seen by health care provider 01/23/2018 13:43 [facility] [place] TYPE: Emergency COMPLAINT: - HEAD PAIN/NO INJURY DIAGNOSES: - Personal history of nicotine dependence - Dependence on renal dialysis - Type 2 diabetes mellitus with diabetic chronic kidney disease - MCC (current) use of anticoagulants - Allergy status to other drugs, medicaments and biological substances status - Allergy status to penicillin - Headache - Local infection of the skin and subcutaneous tissue, unspecified - End stage renal disease - Other manager intermediate (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 - Pruritus, unspecified - Hypertensive chronic kidney disease with stage 5 chronic kidney disease or end stage renal disease 12/31/2017 20:56 NEISHA Pichardo TYPE: Emergency COMPLAINT: - SOB DIAGNOSES: - Allergy status to other drugs, medicaments and biological substances status - Type 2 diabetes mellitus with diabetic chronic kidney disease - Allergy status to penicillin - Acute bronchospasm - Hypertensive chronic kidney disease with stage 1 through stage 4 chronic kidney disease, or unspecified chronic kidney disease - Gastro-esophageal reflux disease without esophagitis - Other manager intermediate (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 - End stage renal disease - Personal history of nicotine dependence - Allergy status to other antibiotic agents status - Dependence on renal dialysis 10/07/2017 03[facility] [place] [facility]: Emergency DIAGNOSES: - Pain, unspecified - Other specified soft tissue disorders - Cellulitis of right upper limb 10/06/2017 23:36 NEISHA Pichardo TYPE: Emergency COMPLAINT: - CHEST PAIN DIAGNOSES: - Type 2 diabetes mellitus with diabetic chronic kidney disease - Dependence on renal dialysis - Chronic kidney disease, unspecified - Allergy status to other drugs, medicaments and biological substances status - Personal history of nicotine dependence - Allergy status to other antibiotic agents status - Gastro-esophageal reflux disease without esophagitis - Other manager intermediate (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 - Hypertensive chronic kidney disease with stage 1 through stage 4 chronic kidney disease, or unspecified chronic kidney disease - Other specified soft tissue disorders - Allergy status to penicillin - Cellulitis of right upper limb 10/05/2017 12:32 [facility] TYPE: Emergency DIAGNOSES: - Dependence on renal dialysis - Cellulitis of right upper limb - Vascular Access Problem - End stage renal disease 08/30/2017 19:01 [facility] [place] TYPE: Emergency COMPLAINT: - R EYE PAIN DIAGNOSES: - Allergy status to penicillin - Type 2 diabetes mellitus without complications - 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 - Ocular pain, right eye - Hypothyroidism, unspecified - Hypertensive chronic kidney disease with stage 5 chronic kidney disease or end stage renal disease - Other manager intermediate (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 - Exposure to other specified factors, subsequent encounter - Injury of conjunctiva and corneal abrasion without foreign body, right eye, subsequent encounter - Allergy status to other drugs, medicaments and biological substances status - End stage renal disease - Dependence on renal dialysis - Unspecified corneal ulcer, right eye - Allergy status to other antibiotic agents status 07/22/2017 13: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 DIAGNOSES: - Pain, unspecified - [...] implants and grafts, subsequent encounter 07/22/2017 13:[facility] TYPE: General Medicine DIAGNOSES: - End stage renal disease - Unspecified complication of cardiac and vascular prosthetic device, implant and graft, initial encounter - Referral - Infection and inflammatory reaction due to other cardiac and vascular devices, implants and grafts, subsequent encounter - Dependence on renal dialysis - Skin Complaint - Methicillin resistant Staphylococcus aureus infection, unspecified site [email or web address]
--- NOTE | 2018-03-26 19:31 | EKG ---
[facility] [address] [place] [address] Signed Normal sinus rhythm Normal ECG When compared with ECG of 06-OCT-2017 23:48, No significant change was found Confirmed by SARITA RICO DO ([id number]) on 03/26/2018 7:31:38 PM Electronically Signed By: SARITA RICO DO 03/26/18 193 PATIENT NAME: CAROL STANTON Electrocardiogram DATE OF : 61 PHYSICIAN: SARITA RICO DO REPORT #: [id number] REPORT IS CONFIDENTIAL AND NOT TO BE RELEASED WITHOUT AUTHORIZATION
== END 2018-03-26 12:20 | disposition home or self-care (01) ==
LOC: ED 10:51
DX: R07.9 Chest pain, unspecified (principal); N19 Unspecified kidney failure; I12.0 Hypertensive chronic kidney disease with stage 5 chronic kidney disease or end stage renal disease; E11.22 Type 2 diabetes mellitus with diabetic chronic kidney disease; N18.6 End stage renal disease; I25.10 Atherosclerotic heart disease of native coronary artery without angina pectoris; K21.9 Gastro-esophageal reflux disease without esophagitis; J45.909 Unspecified asthma, uncomplicated; Z88.0 Allergy status to penicillin; Z88.8 Allergy status to other drugs, medicaments and biological substances; Z88.1 Allergy status to other antibiotic agents; Z79.899 Other long term (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; Z79.01 Long term (current) use of anticoagulants
CPT/HCPCS: 71045; 80048; 84484; 85025; 93005; 93010; 99285

== ENCOUNTER 2018-07-20 17:19 | Emergency (ER) | payer MEDICARE, OTHER ==
[~2018-07-20] VITALS: Ht 170.2 cm; Wt 80.3 kg
--- OUTSIDE RECORDS SUMMARY | 2018-07-20 17:22 | XMS ---
PreManage Notification: CAROL STANTON Security Director Of Catering Events No recent Security Events currently on file CRITERIA MET - Group Notification - 6 ED Visits in 6 Months CARE PROVIDERS ROSA LOFTON [facility] 01/24/2018-Current PHONE: Unknown Reinaldo has no Care Guidelines for this patient. Care History Medical/Surgical 02/13/2018 [facility] - PATIENT IS FOLLOWING VERY CLOSELY WITH [facility] PLASTIC INJECTION MOLD MAKER HARDIK WATSON. - PLEASE CALL SHIRLEY AT [phone] IF PATIENT IS SEEN IN THE ED. - PATIENT HAS A LONG EXTENSIVE HX WITH METHAMPHETAMINE USAGE. - PHYSICIAN DISCRETION- TOX SCREEN BEFORE TREATMENT. Care Recommendation: - USE EXTREME CAUTION IN GIVING NARCOTICS TO THIS PATIENT. - Avoid Discharge Narcotic prescriptions if at all possible. Please use clinical judgement. 02/04/2018 [facility] - PATIENT IS CURRENTLY ON COUMADIN AND [...] all possible. Please use clinical judgement. 09/02/2017 [facility] -[facility] with [facility] [facility] [employer] manager research and development team last seen patient on 01/23/18. -[facility]. -Patient does have concerns with patient memory. [...] ED please contact Community Health WorkerBetzy at [phone]. These are guidelines and the provider should exercise clinical judgment when providing care. E.D. VISIT COUNT (12 MO.) 3 [facility] 1 [facility] NOTE: Visits indicate total known visits. ED/C VISIT TRACKING (12 MO.) 07/20/2018 17:20 [facility] [place] TYPE: Emergency COMPLAINT: - FACIAL LAC 03/26/2018 10:51 [facility] [place] TYPE: Emergency COMPLAINT: - CHEST PAIN DIAGNOSES: - Unspecified kidney failure - End stage renal disease - Other paralegal supervisor (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 - Type 2 diabetes mellitus with diabetic chronic kidney disease - Hypertensive chronic kidney disease with stage 5 chronic kidney disease or end stage renal disease - communication coordinator (current) use of anticoagulants - Allergy status to penicillin - Atherosclerotic heart disease of [place] coronary artery without angina pectoris - Allergy status to other antibiotic agents status - Chest pain, unspecified - Gastro-esophageal reflux disease without esophagitis - Allergy status to other drugs, medicaments and biological substances status - Unspecified asthma, uncomplicated 03/24/2018 09:18 [facility] [place] TYPE: Emergency COMPLAINT: - VOMITING/DIARRHEA DIAGNOSES: - End stage renal disease - Diarrhea, unspecified - Allergy status to other antibiotic agents status - Atherosclerotic heart disease of [place] coronary artery without angina pectoris - Allergy status to penicillin - Other nursing home (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 - Hypothyroidism, unspecified - Gastro-esophageal reflux disease without esophagitis - Allergy status to other drugs, medicaments and biological substances status - Type 2 diabetes mellitus with diabetic chronic kidney disease - Unspecified asthma, uncomplicated - Hypertensive chronic kidney disease with stage 5 chronic kidney disease or end stage renal disease - communication coordinator (current) use of anticoagulants 02/23/2018 13:08 [facility] [place] TYPE: Emergency [...] Gastro-esophageal reflux disease without esophagitis - Other paralegal supervisor (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 - Cervicalgia - Hypothyroidism, [...] status to other antibiotic agents status - correction (current) use of anticoagulants - Unspecified asthma, uncomplicated 02/03/2018 15:04 [facility] [place] TYPE: Emergency COMPLAINT: - HEAD PAIN/NO INJURY DIAGNOSES: - Personal history of nicotine dependence - Type 2 diabetes mellitus with diabetic chronic kidney disease - End stage renal disease - Headache - Other nursing home (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 - Dependence on renal dialysis - Hypothyroidism, unspecified - Allergy status to other antibiotic agents status - Allergy status to other drugs, medicaments and biological substances status - communication coordinator (current) use of anticoagulants - Allergy status to penicillin - Hypertensive chronic kidney disease with stage 5 chronic kidney disease or end stage renal disease [facility]03/2018 [facility] DIAGNOSES: - MARTINEZ/eye pain - Procedure and treatment not carried out due to patient leaving prior to being seen by health care provider 01/23/2018 13:43 [facility] [place] TYPE: Emergency COMPLAINT: - HEAD PAIN/NO INJURY DIAGNOSES: - Personal history of nicotine dependence - Dependence on renal dialysis - Type 2 diabetes mellitus with diabetic chronic kidney disease - correction (current) use of anticoagulants - Allergy status to other drugs, medicaments and biological substances status - Allergy status to penicillin - Headache - Local infection of the skin and subcutaneous tissue, unspecified - End stage renal disease - Other paralegal supervisor (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 - Pruritus, unspecified - [...] Gastro-esophageal reflux disease without esophagitis - Other nursing home (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 - End stage renal disease - Personal history of nicotine dependence - Allergy status to other antibiotic agents status - Dependence on renal dialysis 10/07/2017 03:[address] [facility] TYPE: Emergency DIAGNOSES: - Pain, unspecified - [...] Gastro-esophageal reflux disease without esophagitis - Other paralegal supervisor (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 - Hypertensive chronic kidney disease with stage 1 through stage 4 chronic kidney disease, or unspecified chronic kidney disease - Other specified soft tissue disorders - Allergy status to penicillin - Cellulitis of right upper limb 10/05/2017 12:[address] [facility] TYPE: Emergency DIAGNOSES: - Dependence on renal dialysis - Cellulitis of right upper limb - Vascular Access Problem - End stage renal disease 08/30/2017 19:01 [facility] TYPE: Emergency COMPLAINT: - R EYE PAIN DIAGNOSES: - Allergy status to penicillin - Type 2 diabetes mellitus without complications - Atherosclerotic heart disease of [place] coronary artery without angina pectoris - Ocular pain, right eye - Hypothyroidism, unspecified - Hypertensive chronic kidney disease with stage 5 chronic kidney disease or end stage renal disease - Other nursing home (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 - Exposure to other specified factors, subsequent encounter - Injury of conjunctiva and corneal abrasion without foreign body, right eye, subsequent encounter - Allergy status to other drugs, medicaments and biological substances status - End stage renal disease - Dependence on renal dialysis - Unspecified corneal ulcer, right eye - Allergy status to other antibiotic agents status [facility]22[facility]2017 [facility]: Emergency DIAGNOSES: - Referral - Skin Complaint INPATIENT VISIT TRACKING (12 MO.) 10/07/2017 03:15 [facility] DIAGNOSES: - Pain, unspecified - [...] implants and grafts, subsequent encounter 07/22/2017 13:28 [facility]: [facility] DIAGNOSES: - End stage renal disease - Unspecified complication of cardiac and vascular prosthetic device, implant and graft, initial encounter - Referral - Infection and inflammatory reaction due to other cardiac and vascular devices, implants and grafts, subsequent encounter - Dependence on renal dialysis - Skin Complaint - Methicillin resistant Staphylococcus aureus infection, unspecified site [email or web address]
== END 2018-07-20 18:20 | disposition home or self-care (01) ==
LOC: ED 17:19
DX: S81.811A Laceration without foreign body, right lower leg, initial encounter (principal); I13.11 Hypertensive heart and chronic kidney disease without heart failure, with stage 5 chronic kidney disease, or end stage renal disease; N18.6 End stage renal disease; E11.22 Type 2 diabetes mellitus with diabetic chronic kidney disease; I25.10 Atherosclerotic heart disease of native coronary artery without angina pectoris; J45.909 Unspecified asthma, uncomplicated; E03.9 Hypothyroidism, unspecified; K21.9 Gastro-esophageal reflux disease without esophagitis; Z99.2 Dependence on renal dialysis; Z88.8 Allergy status to other drugs, medicaments and biological substances; Z88.0 Allergy status to penicillin; Z88.1 Allergy status to other antibiotic agents; Z79.899 Other long term (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; Z79.01 Long term (current) use of anticoagulants; Z23 Encounter for immunization; W22.8XXA Striking against or struck by other objects, initial encounter
CPT/HCPCS: 90471; 90715; 99282-25

== ENCOUNTER 2018-08-12 07:57 | Emergency (ER) | payer MEDICARE, OTHER ==
[~2018-08-12] VITALS: Ht 170.2 cm; Wt 80.3 kg
--- OUTSIDE RECORDS SUMMARY | 2018-08-12 08:00 | XMS ---
PreManage Notification: CAROL STANTON Security Preservative Filler Machine Operator Events No recent Security Events currently on file CRITERIA MET - Group Notification - [facility] - Has Care Guidelines - PDMP - [facility] - 2 Visits in 30 Days CARE PROVIDERS ROSA LOFTON [facility] 01/24/2018-Current PHONE: Unknown Reinaldo has no Care Guidelines for this patient. Care History Medical/Surgical 02/13/2018 [facility] - PATIENT IS FOLLOWING VERY CLOSELY WITH [employer] DEVELOPER HARDIK WATSON. - PLEASE CALL SHIRLEY AT [phone] IF PATIENT IS SEEN IN THE ED. - PATIENT HAS A LONG EXTENSIVE HX WITH METHAMPHETAMINE USAGE. - PHYSICIAN DISCRETION- TOX SCREEN BEFORE TREATMENT. Care Recommendation: - USE EXTREME CAUTION IN GIVING NARCOTICS TO THIS PATIENT. - Avoid Discharge Narcotic prescriptions if at all possible. Please use clinical judgement. 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 -Patient receives INR draws from [facility]. -Patient does have concerns with patient memory. [...] ED please contact Community Health WorkerBetzy at [phone]. These are guidelines and the provider should exercise clinical judgment when providing care. E.D. VISIT COUNT (12 MO.) 2 [facility] 1 [facility] 11 [facility] TOTAL 14 NOTE: Visits indicate total known visits. ED/C VISIT TRACKING (12 MO.) 08/12/2018 07:57 [facility] [place] TYPE: Emergency COMPLAINT: - COUGH 07/20/2018 17:20 [facility] [place] TYPE: Emergency COMPLAINT: - R LEG LAC DIAGNOSES: - Gastro-esophageal reflux disease without esophagitis - Atherosclerotic heart disease of [place] coronary artery without angina pectoris - termination clerk (current) use of anticoagulants - Dependence on renal dialysis - End stage renal disease - Striking against or struck by other objects, initial encounter - Allergy status to penicillin - Unspecified asthma, uncomplicated - Other ch[facility] (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 - Allergy status to other antibiotic agents status - Hypertensive heart and chronic kidney disease without heart failure, with stage 5 chronic kidney disease, or end stage renal disease - Hypothyroidism, unspecified - Encounter for immunization - Allergy status to other drugs, medicaments and biological substances status - Type 2 diabetes mellitus with diabetic chronic kidney disease - Laceration without foreign body, right lower leg, initial encounter 03/26/2018 10:51 [facility] [place] TYPE: Emergency COMPLAINT: - CHEST PAIN DIAGNOSES: - Unspecified kidney failure - End stage renal disease - Other chcf (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 - Type 2 diabetes mellitus with diabetic chronic kidney disease - Hypertensive chronic kidney disease with stage 5 chronic kidney disease or end stage renal disease - longterm (current) use of anticoagulants - Allergy status to penicillin - Atherosclerotic heart disease of [place] coronary artery without angina pectoris - Allergy [...] agents status - Atherosclerotic heart disease of [place] coronary artery without angina pectoris - Allergy status to penicillin - Other [facility] (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 - Hypothyroidism, unspecified - Gastro-esophageal reflux disease without esophagitis - Allergy status to other drugs, medicaments and biological substances status - Type 2 diabetes mellitus with diabetic chronic kidney disease - Unspecified asthma, uncomplicated - Hypertensive chronic kidney disease with stage 5 chronic kidney disease or end stage renal disease - longterm (current) use of anticoagulants 02/23/2018 13:08 NEIS[facility] [...] Gastro-esophageal reflux disease without esophagitis - Other [facility] (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 - Cervicalgia - Hypothyroidism, [...] status to other antibiotic agents status - longterm (current) use of anticoagulants - Unspecified asthma, uncomplicated 02/03/2018 15:04 [facility] [place] TYPE: Emergency COMPLAINT: - HEAD PAIN/NO INJURY DIAGNOSES: - Personal history of nicotine dependence - Type 2 diabetes mellitus with diabetic chronic kidney disease - End stage renal disease - Headache - Other moth exterminator (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 - Dependence on renal dialysis - Hypothyroidism, unspecified - Allergy status to other antibiotic agents status - Allergy status to other drugs, medicaments and biological substances status - termination clerk (current) use of anticoagulants - Allergy status to penicillin - Hypertensive chronic kidney disease with stage 5 chronic kidney disease or end stage renal disease 02/03/2018 10:59 [facility] [place] TYPE: Emergency DIAGNOSES: - MARTINEZ/eye pain - Procedure and treatment not carried out due to patient leaving prior to being seen by health care provider 01/23/2018 13:43 [facility] TYPE: Emergency COMPLAINT: - HEAD PAIN/NO INJURY DIAGNOSES: - Personal history of nicotine dependence - Dependence on renal dialysis - Type 2 diabetes mellitus with diabetic chronic kidney disease - termination clerk (current) use of anticoagulants - Allergy status to other drugs, medicaments and biological substances status - Allergy status to penicillin - Headache - Local infection of the skin and subcutaneous tissue, unspecified - End stage renal disease - Other moth exterminator (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 - Pruritus, unspecified - [...] Gastro-esophageal reflux disease without esophagitis - Other moth exterminator (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 - End stage renal disease - Personal history of nicotine dependence - Allergy status to other antibiotic agents status - Dependence on renal dialysis 10/07/2017 03[facility]15 [facility] [place] [facility] DIAGNOSES: - Pain, unspecified - [...] Gastro-esophageal reflux disease without esophagitis - Other moth exterminator (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 - Hypertensive chronic kidney disease with stage 1 through stage 4 chronic kidney disease, or unspecified chronic kidney disease - Other specified soft tissue disorders - Allergy status to penicillin - Cellulitis of right upper limb 10/05/2017 12:32 [facility] [place] [facility]: Emergency DIAGNOSES: - Dependence on renal dialysis - Cellulitis of right upper limb - Vascular Access Problem - End stage renal disease 08/30/2017 19:01 [facility] [place] TYPE: Emergency COMPLAINT: - R EYE PAIN DIAGNOSES: - Allergy status to penicillin - Type 2 diabetes mellitus without complications - Atherosclerotic heart disease of [place] coronary artery without angina pectoris - Ocular pain, right eye - Hypothyroidism, unspecified - Hypertensive chronic kidney disease with stage 5 chronic kidney disease or end stage renal disease - Other moth exterminator (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 - Exposure to other specified factors, subsequent encounter - Injury of conjunctiva and corneal abrasion without foreign body, right eye, subsequent encounter - Allergy status to other drugs, medicaments and biological substances status - End stage renal disease - Dependence on renal dialysis - Unspecified corneal ulcer, right eye - Allergy status to other antibiotic agents status INPATIENT VISIT TRACKING (12 MO.) 10/07/2017 03:15 [facility] TYPE: Recovery DIAGNOSES: - Pain, unspecified - [...] vascular devices, implants and grafts, subsequent encounter [id number]
[2018-08-12] MEDS ORDERED: COUMADIN5 MG PO (08:15)
[2018-08-12] MEDS ORDERED: COUMADIN1 MG PO (08:16)
[2018-08-12] MEDS ORDERED: COMBIVENT RESPIM4 GM INH (08:17)
[2018-08-12] MEDS ORDERED: FOSRENOL1000 MG PO (08:20)
[2018-08-12] MEDS ORDERED: SYMBICORT 16010.2 GM INH (08:25)
[2018-08-12] MEDS ORDERED: TESSALON PERLE100 MG PO (09:46)
[2018-08-12] MEDS ORDERED: VENTOLIN HFA18 GM INH (09:46)
[2018-08-12] MEDS ORDERED: PREDNISONE20 MG PO (09:46)
== END 2018-08-12 10:10 | disposition home or self-care (01) ==
LOC: ED 07:57
DX: J40 Bronchitis, not specified as acute or chronic (principal); J32.9 Chronic sinusitis, unspecified; K59.00 Constipation, unspecified; I12.0 Hypertensive chronic kidney disease with stage 5 chronic kidney disease or end stage renal disease; E11.22 Type 2 diabetes mellitus with diabetic chronic kidney disease; N18.6 End stage renal disease; Z88.8 Allergy status to other drugs, medicaments and biological substances; Z88.0 Allergy status to penicillin; Z79.01 Long term (current) use of anticoagulants; Z79.899 Other long term (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
CPT/HCPCS: 71045; 74018; 80048; 85025; 85610; 85730; 94640; 99283-25; J1100

== ENCOUNTER 2018-09-18 14:11 | Emergency (ER) | payer MEDICARE, OTHER ==
[~2018-09-18] VITALS: Ht 170.2 cm; Wt 85.8 kg
--- OUTSIDE RECORDS SUMMARY | ~2018-09-18 | XMS | Clinical Summary ---
Demographics + + + | Address | [address] | | | [place] [address] | + + + | Home Phone | | + + + | Preferred Language | Unknown | + + + | Marital Status | Unknown | + + + | Restorationism Affiliation | [id number] | + + + [...] Phone | + + +---------+ + | TariqShyanne | ECON | Unknown | | + + +---------+ + | [place] | ECON | Unknown | | + + +---------+ + Care Team Providers + +------+ + | Care Keg Washer Name | Role | Phone | + +------+ + PP | Unavailable | + +------+ + Allergies + + + + + + | Active Allergy | Reactions | Severity | Noted | Comments | | | | | Date | | + + + + + + | Lisinopril | | | | | + + + + + + | Penicillins | | | 12/20 | | | | | | 10 | | + + + + + + Current Medications + + +-------+---------+------+------+-------+ | Prescription | Sig. | Disp. | Refills | Star | End | Statu | | | | | | t | Date | s | | | | | | Date | | | + + +-------+---------+------+------+-------+ | albuterol (PROAIR | 2 puffs inhaled | | | 02/22 | | Activ | | HFA) 90 mcg/puff | every 4 hours as | | | 4/20 | | e | | inhaler | needed for shortness | | | 12 | | | | | of breath | | | | | | + + +-------+---------+------+------+-------+ | Blood Glucose | Use as directed by | | | / | | Activ | | Monitoring Suppl | physician | | | 10/11 | | e | | (CONTOUR BLOOD | | | | 12 | | | | GLUCOSE SYSTEM) GORGE | | | | | | | + + +-------+---------+------+------+-------+ | ergocalciferol | Take 50,000 Units by | | | 02/22 | | Activ | | (VITAMIN D-2) 50,000 | mouth Once a week. | | | 10/11 | | e | | units capsule | | | | 12 | | | + + +-------+---------+------+------+-------+ | hydrophilic | Apply a small amount | | | / | | Activ | | ointment | to affected areas | | | 10/11 | | e | | | three times a day to | | | 12 | | | | | feet as directed. | | | | | | | | Apply to ears as | | | | | | | | directed. | | | | | | + + +-------+---------+------+------+-------+ | | Inhale 1 puff by | | | 02/22 | | Activ | | fluticasone-salmeter | mouth twice a day | | | 4/20 | | e | | ol (ADVAIR DISKUS) | for asthma; use | | | 12 | | | | 100-50 mcg/puff | morning and evening | | | | | | | diskus inhaler | every day | | | | | | + + +-------+---------+------+------+-------+ | | Use 1 pad to wipe | | | 02/22 | | Activ | | Benzocaine-Isopropyl | area as directed | | | 10/11 | | e | | Alcohol (ALCOHOL | | | | 12 | | | | SWABS WITH | | | | | | | | BENZOCAINE) 6-70 % | | | | | | | | PADS | | | | | | | + + +-------+---------+------+------+-------+ | allopurinol | 1 tablet by mouth | | | 02/22 | | Activ | | [...] | | | | | + + +-------+---------+------+------+-------+ | aspirin 81 mg EC | Take 81 mg by mouth | | | 02/22 | | Activ | | tablet | Daily. | | | 4 | | e | | | | | | 12 | | | + + +-------+---------+------+------+-------+ | betamethasone | Apply a small amount | | | 02/22 | | Activ | | valerate (VALISONE) | to scalp once or | | | 10/11 | | e | | 0.1 % lotion | twice a day | | | 12 | | | + + +-------+---------+------+------+-------+ | ferrous sulfate | 1 tablet by mouth | | | 02/22 | | Activ | | 325 mg tablet | twice daily with | | | 10/11 | | e | | | meals | | | 12 | | | + + +-------+---------+------+------+-------+ | hydrOXYzine | One tablet by mouth | | | 02/22 | | Activ | | (ATARAX) 25 MG | every 6 hours if | | | 420 | | e | | tablet | needed. May cause | | | 12 | | | | | drowsiness. | | | | | | + + +-------+---------+------+------+-------+ | simvastatin | Take 20 mg by mouth | | | 09/1 | | Activ | | (ZOCOR) 20 mg tablet | every evening. | | | 4/20 | | e | | | | | | 12 | | | + + +-------+---------+------+------+-------+ | lidocaine | Apply a small amount | | | 09/1 | | Activ | | (XYLOCAINE JELLY) 2% | to affected area | | | 4/20 | | e | | jelly | | | | 12 | | | + + +-------+---------+------+------+-------+ | metformin | Take 2-1/2 tablets | | | 09/1 | | Activ | | (GLUCOPHAGE) 1000 MG | by mouth every | | | 4/20 | | e | | tablet | evening with food or | | | 12 | | | | | milk for diabetes | | | | | | + + +-------+---------+------+------+-------+ | Elliott Kim | Use as directed by | | | 02/22 | | Activ | | MISC | physician | | | 420 | | e | | | | | | 12 | | | + + +-------+---------+------+------+-------+ | telmisartan | Take 40 mg by mouth | | | 02/22 | | Activ | | (MICARDIS) 40 mg | Daily. | | | 10/11 | | e | | tablet | | | | 12 | | | + + +-------+---------+------+------+-------+ Active Problems + + + | Problem | Noted Date | + + + | Chronic gouty arthritis | | + + + + + | Overview: JAMIL [id number] Decision | + + + +---+ | UNSPECIFIED ESSENTIAL HYPERTENSION | | + +---+ + + | Overview: ICD-10 Record update | + + + +---+ | MIXED HYPERLIPIDEMIA | | + +---+ | HYPOTHYROIDISM | [...] Overview: ICD-10 Record update | + + +--------+---+ | ASTHMA | | +--------+---+ Social History + +-------+ +--------+------+ | Tobacco [...] on file | | + + + Last Filed Vital Signs + + + + | Vital Sign | Reading | Time Taken | + + + + | Blood Pressure | 120/72 | 06/06/2010 0000 PST | + + + + | Pulse | - | - | + + + + | Temperature | - | - | + + + + | Respiratory Rate | - | - | + + + + | Oxygen Saturation | - | - | + + + + | Inhaled Oxygen | - | - | | Concentration | | | + + + + | Weight | 86.6 kg (191 lb) | 06/06/2010 0000 PST | + + + + | Height | 171.5 cm (5' 7.5") | 04/26/2010 0000 PDT | + + + + | Body Mass Index | 29.47 | 06/06/2010 0000 PST | + + + + Plan of Treatment [...] | | | | | (#1) | 8 | | | + + + + + Results Not on filefrom Last 3 Months
--- OUTSIDE RECORDS SUMMARY | ~2018-09-18 | XMS | Clinical Summary ---
Demographics + + + | Address | [address] | | | [place] [address] | + + + | Home Phone | | + + + | Preferred Language | Unknown | + + + | Marital Status | | + + + | Roman Catholic Affiliation | 1076 | + + + | Race | Unknown | + + + | Ethnic Group | Unknown | + + + Author + + + | Author | [facility] | + + + | Organization | [facility] | + + + | Address | Unknown | + + + | Phone | Unavailable | + + + Support + + +---------+ + | Name | Relationship | Address | Phone | + + +---------+ + | Shyanne Stanton | ECON | Unknown | | + + +---------+ + | [place]o Arenas | ECON | Unknown | | + + +---------+ + | Cristel [place] | ECON | Unknown | | + + +---------+ + Care Team Providers + +------+ + | Care Tool Designer Apprentice Name | Role | Phone | + +------+ + | Andry Deng MD | PP | | + +------+ + Allergies + [...] + + | Penicillins | Other (See Comments) | Medium | 04/02/20 | Unknown- not | | | | | 12 | sure 10/08/12: | | | | | | Patient tolerated | | | | | | Ceftriaxone during | | | | | | previous admissions. | + + + + + + Current Medications + + + +---------+------+------+-------+ | Prescription | Sig. | Disp. | Refills | Star | End | Statu | | | | | | t | Date | s | | | | | | Date | | | + + + +---------+------+------+-------+ | Cholecalciferol | Take 1 tablet by | | | | | Activ | | 2000 UNITS TABS | mouth daily. | | | | | e | + + + +---------+------+------+-------+ | sodium bicarbonate | Take 1,300 mg by | | | | | Activ | | 650 MG tablet | mouth 2 (two) times | | | | | e | | | daily. | | | | | | + + + +---------+------+------+-------+ | amLODIPine | Take 10 mg by mouth | | | | | Activ | | (NORVASC) 10 MG | daily. | | | | | e | | tablet | | | | | | | + + + +---------+------+------+-------+ | allopurinol | Take 100 mg by mouth | | | | | Activ | | (ZYLOPRIM) 100 MG | daily. Indications: | | | | | e | | tabletIndications: | Primary Gout | | | | | | | Primary Gout | | | | | | | + + + +---------+------+------+-------+ | levothyroxine | Take 75 mcg by mouth | | | | | Activ | | (SYNTHROID) 75 MCG | every morning | | | | | e | | tabletIndications: | before breakfast. | | | | | | | Hypothyroidism | Indications: | | | | | | | | Underactive Thyroid | | | | | | + + + +---------+------+------+-------+ | | Inhale 1 puff into | 60 each | 0 | 05/0 | | Activ | | fluticasone-salmeter | the lungs 2 (two) | | | 7/20 | | e | | ol (ADVAIR DISKUS) | times daily. | | | 14 | | | | 250-50 MCG/DOSE | | | | | | | + + + +---------+------+------+-------+ | montelukast | Take 1 tablet by | 30 | 0 | 05/0 | | Activ | | (SINGULAIR) 10 MG | mouth nightly. | tablet | | 7/20 | | e | | tablet | | | | 14 | | | + + + +---------+------+------+-------+ | albuterol | Inhale 2 puffs into | 1 | 1 | 05/0 | | Activ | | (PROVENTIL HFA) 108 | the lungs every 4 | Inhaler | | 7/20 | | e | | (90 BASE) MCG/ACT | (four) hours as | | | 14 | | | | inhaler | needed for Wheezing. | | | | | | + + + +---------+------+------+-------+ | acetaminophen | Take 650 mg by mouth | | | | | Activ | | (TYLENOL) 325 MG | every 6 (six) hours | | | | | e | | tabletIndications: | as needed. | | | | | | | Pain | Indications: Pain | | | | | | + + + +---------+------+------+-------+ | | Inhale 2 puffs into | 2 each | 0 | 11/0 | | Activ | | budesonide-formotero | the lungs 2 (two) | | | 01/10 | | e | | l (SYMBICORT) | times daily. | | | 16 | | | | 160-4.5 MCG/ACT | | | | | | | | inhaler | | | | | | | + + + +---------+------+------+-------+ | ondansetron | | | | 04/1 | | Activ | | (ZOFRAN-ODT) 8 MG | | | | 08/13 | | e | | disintegrating | | | | 17 | | | | tablet | | | | | | | + + + +---------+------+------+-------+ | | | | | 04/1 | | Activ | | HYDROcodone-acetamin | | | | 08/13 | | e | | ophen (NORCO) 5-325 | | | | 17 | | | | MG per tablet | | | | | | | + + + +---------+------+------+-------+ | b complex-vitamin | Take 1 tablet by | 30 | 11 | 08/0 | | Activ | | c-folic acid | mouth daily. | tablet | | /20 | | e | | (NEPHRO-THU) 0.8 MG | | | | 17 | | | | TABS | | | | | | | | tabletIndications: | | | | | | | | ESRD (end stage | | | | | | | | renal disease) on | | | | | | | | dialysis ([facility]) | | | | | | | + + + +---------+------+------+-------+ | sevelamer | take 3 tablets by | 300 | 5 | 08/0 | | Activ | | (RENVELA) 800 MG | mouth three times a | tablet | | 3/20 | | e | | tabletIndications: | day WITH MEALS AND 1 | | | 17 | | | | ESRD (end stage | TABLET WITH SNACKS | | | | | | | renal disease) on | | | | | | | | dialysis ([facility]) | | | | | | | + + + +---------+------+------+-------+ | betamethasone | Apply topically 2 | 30 g | 0 | 08/2 | | Activ | | valerate (VALISONE) | (two) times daily | | | 9/20 | | e | | 0.1 % cream | for 7 days. | | | 17 | | | + + + +---------+------+------+-------+ | carvedilol (COREG) | Take 2 tablets by | 60 | 0 | 02/0 | | Activ | | 3.125 MG tablet | mouth 2 (two) times | tablet | | 20 | | e | | | daily with meals. | | | 18 | | | + + + +---------+------+------+-------+ | warfarin | Take 1 tablet by | 30 | 3 | 04/2 | 04/ | Activ | | (COUMADIN) 4 MG | mouth Once | tablet | | 02/10 | 02/10 | e | | tablet | daily-Coumadin. | | | 18 | 19 | | + + + +---------+------+------+-------+ Active Problems + + + | Problem | Noted Date | + + + | SVC syndrome | 10/08/2017 | + + + | Superior vena caval stenosis | 10/07/2017 | + + + | 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[facility]) | 07/22/2017 | + + + | Psoriasis-like skin disease | 02/19/2017 | + + + | Eczema of both upper extremities | 02/16/2017 | + + + | S/P pericardiocentesis | 09/12/2016 | + + + | Hyponatremia | 09/08/2016 | + + + | Polysubstance abuse ([facility]) | 04/28/2016 | + + + | Chronic steroid [...] | 05/24/2012 | + + + | HTN (hypertension) | 04/30/2012 | + + + | ESRD (end stage renal disease) on dialysis | 04/30/2012 | + + + + + | Last Assessment & Plan: Vancomycin has been dosed | | accordingly. Doxycycline does not require any adjustment. | + + + + + | Diabetes mellitus with ESRD (end-stage renal disease) | 04/14/2012 | + + + | Obesity (BMI 30-39.9) | 04/14/2012 | + + + | Hypoalbuminemia | 04/11/2012 | + + + | Hypothyroidism | 04/07/2012 | + + + | Rash | 04/03/2012 | + + + | Vitamin D deficiency | 04/03/2012 | + + + | Secondary renal hyperparathyroidism (HCC) | 04/03/2012 | + + + | Metabolic acidosis | 04/02/2012 | + + + | Anemia in ESRD (end-stage renal disease) (HCC) | | + + + Resolved Problems + + + + | Problem | Noted | Resolved | | | Date | Date | + + + + | Chest pain, unspecified | 10/09/19 | | | | 17 | 8 | + + + + | Hyperkalemia | 10/09/19 | | | | 17 | 7 | + + + + | Pericardial effusion with cardiac tamponade | 09/13/19 | | | | 17 | 7 | + + + + | Acute hyperkalemia | 09/08/19 | | | | 17 | 7 | + + + + | Dialysis AV fistula malfunction | 09/08/19 | | | | 17 | 7 | + + + + | Acute respiratory failure with hypoxia and hypercapnia (HCC) | 04/28/20 | | | | 16 | 7 | + + + + | Hyponatremia | 04/28/20 | | | | 16 | 7 | + + + + | Chronic obstructive asthma with exacerbation (HCC) | 04/28/20 | | | | 16 | 7 | + + + + | Pneumonia, organism unspecified(486) | 03/15/20 | | | | 14 | 7 | + + + + | Hyperkalemia | 11/10/19 | | | | 14 | 4 | + + + + | SOB (shortness of breath) | 10/28/19 | | | | 14 | 4 | + + + + | Chronic obstructive asthma with exacerbation (HCC) | 10/28/19 | 09/23/201 | | | 14 | 4 | + + + + | Staphylococcus aureus bacteremia with sepsis (HCC) | 10/10/19 | | | | 13 | 3 | + + + + | Bacteremia | 10/09/19 | | | | 13 | 3 | + + + + | Fever | 10/08/19 | | | | 13 | 3 | + + + + | C. difficile colitis | 10/06/19 | | | | 13 | 3 | + + + + | Adult failure to thrive | 10/04/19 | | | | 13 | 4 | + + + + + + | Last Assessment & Plan: The patient continues to work on | | regaining weight. His level of activity has also been improving. | | It is anticipated that he will be ready for discharge from the | | half-way facility next week. | + + + + + + | Weakness generalized | 10/04/19 | | | | 13 | 3 | + + + + | Hyponatremia | 07/11/19 | | | | 13 | 3 | + + + + | Septic arthritis of knee, right | 07/08/19 | | | | 13 | 3 | + + + + + + | Overview: S aureus | + + + + + + | Bacteremia due to Staphylococcus | 07/06/19 | | | | 13 | 3 | + + + + + + | Last Assessment & Plan: The patient is once again completed 6 | | weeks of intravenous vancomycin. His recent relapses were likely | | on the basis of infection of the left gluteal musculature. | | Symptoms there are finally improving. I'm going to continue | | treatment with oral doxycycline for 6 more months to prevent | | further relapses as the patient has had staph aureus bacteremia 3 | | times in the past 6 months. The patient was advised to call if | | he has any nausea or vomiting after starting doxycycline. We will | | plan to followup in one month with repeat labs at that time, | | sooner if needed. | + + + + + + | SIRS due to infectious process with acute organ dysfunction | 07/06/19 | | | | 13 | 3 | + + + + | Chest pain | 07/06/19 | | | | 13 | 3 | + + + + | Hip pain, bilateral | 07/06/19 | | | | 13 | 3 | + + + + + + | Last Assessment & Plan: Imaging is consistent with myositis | | of the left gluteal musculature, likely secondary to staph aureus | | bacteremia. This has been improving with antibiotics. Will | | continue to monitor. | + + + + + + | Knee pain, right | 07/06/19 | | | | 13 | 3 | + + + + | Bilateral ankle pain | 07/06/19 | | | | 13 | 3 | + + + + | Hyperphosphatemia | 05/24/20 | | | | 12 | 3 | + + + + | Bacteremia due to Gram-positive bacteria | 05/15/20 | | | | 12 | 3 | + + + + + + | Last Assessment & Plan: The patient had multiple recurrences | | of staph aureus bacteremia, having now completed his third | | prolonged course of intravenous vancomycin. He has tolerated oral | | doxycycline for a well. Inflammatory markers are improving. | | Continue doxycycline through April as planned, well tolerated | | thus far. We will followup in 2 months with repeat labs at that | | time. | + + + + + + | Febrile illness, acute | 05/14/20 | | | | 12 | 3 | + + + + | Asthma | 05/14/20 | | | | 12 | 3 | + + + + | GI bleed | 04/30/20 | | | | 12 | 3 | + + + + | Anemia due to blood loss | 04/30/20 | | | | 12 | 3 | + + + + | DVT of IJ and B/L cephalics | 04/30/20 | | | | 12 | 3 | + + + + | Acute posthemorrhagic anemia | 04/29/20 | | | | 12 | 3 | + + + + | Hypokalemia | 04/16/20 | | | | 12 | 3 | + + + + | Hyponatremia | 04/14/20 | | | | 12 | 3 | + + + + | Hypokalemia | 04/13/20 | | | | 12 | 2 | + + + + | Abdominal pain, right upper quadrant | 04/13/20 | | | | 12 | 2 | + + + + | MSSA (methicillin susceptible Staphylococcus aureus) infection | 04/11/20 | | | | 12 | 3 | + + + + | Eczema herpeticum | 04/07/20 | | | | 12 | 2 | + + + + | Hypomagnesemia | 04/05/20 | | | | 12 | 2 | + + + + | Hypokalemia | 04/05/20 | | | | 12 | 2 | + + + + | Hypokalemia | 04/04/20 | | | | 12 | 2 | + + + + | Hypocalcemia | 04/04/20 | | | | 12 | 2 | + + + + | Hypokalemia | 04/04/20 | | | | 12 | 2 | + + + + | Hypocalcemia | 04/04/20 | | | | 12 | 2 | + + + + | Rhabdomyolysis | 04/02/20 | | | | 12 | 2 | + + + + | Hyperkalemia | 04/02/20 | | | | 12 | 2 | + + + + | Hyperphosphatemia | 04/02/20 | | | | 12 | 2 | + + + + Encounters +--------+ + + + + | Date | Type | Specialty | Care Team | Description | +--------+ + + + + | 03/08/ | Documentati | | Jayy Christianson MD | Other (July | 2018 | on Only | | | 2018-[facility] | | | | | | Dialysis Rounding | | | | | | Note) | +--------+ + + + + | 08/08/ | Documentati | | Jayy Christianson MD | Other (June | on Only | | 2018-[facility] | | | | | | Dialysis Rounding | | | | | | Note) | +--------+ + + + + | 07/16/ | Documentati | | Freeman, | Other (Prior | 2018 | on Only | | ANASTASIA Riggins | request sent to | | | | | | [facility]) | +--------+ + + + + | 07/02/ | Documentati | | Jayy Christianson MD | Other (May | on Only | | | 2017-[facility] | | | | | | Dialysis Rounding | | | | | | Note) | +--------+ + + + + from Last 3 Months Immunizations + + + + | Name | Dates Previously Given | Next Due | + + + + | Pneumococcal | 10/11/2017 (Deferred: ) | | | Polysaccharide | | | | 23-valent | | | + + + + Family History + + +------+ + | [...] + | Mother | | | from [place] | | | | (Age | | | | | 55) | | + +------+ + + Social History + +-------+ +--------+ [...] | Blood Pressure | 118/55 | 10/19/2017 11:11 AM PDT | + + + + | Pulse | 77 | 10/19/2017 11:11 AM PDT | + + + + | Temperature | 37 C (98.6 F) | 10/19/2017 11:11 AM PDT | + + + + | Respiratory Rate | 18 | 10/19/2017 11:11 AM PDT | + + + + | Oxygen Saturation | 100% | 10/19/2017 11:11 AM PDT | + + + + | Inhaled Oxygen | - | - | | Concentration | | | + + + + | Weight | 78.4 kg (172 lb 13.5 | 10/19/2017 2:23 AM PDT | | | oz) | | + + + + | Height | 170.2 cm (5' 7.01") | 10/07/2017 6:32 AM PDT | + + + + | Body Mass Index | 27.06 | 10/19/2017 2:23 AM PDT | + + + + Plan of Treatment + + + + + | Health Maintenance | Due Date | Last Done | Comments | + + + + + | Diabetic Eye Exam | | | | | | 3 | | | + + + + + | Diabetic Foot Exam | | | | | | 3 | | | + + + + + | Vaccine: | | | | | Dtap/Tdap/Td (1 - | 2 | | | | Tdap) | | | | + + + + + | Vaccine: | | | | | Pneumococcal 19-64 | 2 | | | | Highest Risk (1 of 3 | | | | | - PCV13) | | | | + + + + + | Vaccine: Zoster (1 | | | | | of 2) | 3 | | | + + + + + | Vaccine: Influenza | | | | | (#1) | 8 | | | + + + + + | Hemoglobin A1c | | 10/08/2017, 02/17/2017, | | | | 8 | 10/09/2016, Additional history | | | | | exists | | + + + + + | Colon Cancer | | 05/01/2012 | | | Screening | 2 | | | | (Colonoscopy) | | | | + + + + + Implants + +-------+--------+ +--------+--------+--------+ | Implanted | Type | Area | Manufacture | Device | Expira | Model | | | | | r | | tion | / | | | | | | Identi | Date | Serial | | | | | | fier | | / Lot | + +-------+--------+ +--------+--------+--------+ | Zilver 12 X | Stent | Right: | | | | [id number] | | 40-09/11/2016Implanted: | | | | | | / | | 09/11/2016 by Jimenez Garnica, | | [employer] | | | | /[id number] | | MD Montiel (Quantity not on | | vian | | | | 669 | | file) | | | | | | | + +-------+--------+ +--------+--------+--------+ | Zilver 14 X | Stent | Right: | | | | [id number] | | 60-09/11/2016Implanted: | | | | | | / | | 09/11/2016 by Jimenez Garnica, | | [employer] | | | | /[id number] | | PhD (Quantity not on | | vian | | | | 524 | | file) | | | | | | | + +-------+--------+ +--------+--------+--------+ | Hemodialysis Catheter 12x20 | | Left: | | | 10/05/ | [id number] | | Curved - Sn/AImplanted: Qty: | | Neck | | | 2013 | [id number] | | 1 on 07/07/2012 by Oskar Meyer | | | | | | /N/A | | MD Yan | | | | | | /[id number] | | | | | | | | 5X | + +-------+--------+ +--------+--------+--------+ | Catheter Hemodialysis Alpha | | Left: | | | 02/22/ | [id number] | | Pre Cvd Fpc Std | | Neck | | | 2012 | 0 | | Hemosplit 14.5 24cm - | | | | | | /[id number] | | [id number]: Qty: 1 on | | | | | | 90 | | 07/11/2012 by Oskar Meyer MD | | | | | | /[id number] | | | | | | | | 631 | + +-------+--------+ +--------+--------+--------+ Results Not on filefrom Last 3 Months Insurance + +--------+ +------+-------+ + | Payer | Benefi | Subscriber | Type | Phone | Address | | | t Plan | ID | | | | | | / | | | | | | | Group | | | | | + +--------+ +------+-------+ + | MEDICARE | MEDICA | [id number] | | | [address] | | | RE | | | | [place] [address] | | | IP-OP | | | | | + +--------+ +------+-------+ + | MEDICAID | MEDICA | [id number] | | | [address] | | | ID | | | | [place] | | | [place] | | | | [address] | + +--------+ +------+-------+ + | [facility] | YELLOW | [id number] | | | | | PLANS | [place] | | | | | + +--------+ +------+-------+ + + +--------+ +--------+ + + | Guarantor Name | Accoun | Relation to | Date | Phone | Billing Address | | | t Type | Patient | of | | | | | | | | | | + +--------+ +--------+ + + | CAROL STANTON | Person | Self [birth year] | Home: | [address] | | | al/Fam | | 1965 | [phone] | [place] | | | juan | | | [phone] | [phone] | + +--------+ +--------+ + +
--- OUTSIDE RECORDS SUMMARY | ~2018-09-18 | XMS | Clinical Summary ---
Demographics + + + | Address | [address] | | | [place] [address] | + + + | Home Phone | | + + + | Preferred Language | Unknown | + + + | Marital Status | Unknown | + + + | Druze Affiliation | 1076 | + + + | Race | Unknown | + + + | Ethnic Group | Unknown | + + + Author + + + | Author | [facility] | | | and [place] | + + + | Organization | [facility] | | [...] Team Providers + +------+ + | Care Loss Prevention And Safety Manager Name | Role | Phone | [...] + + + + | Overview: JAMIL [id number] Decision | + + + +---+ | [...]
--- OUTSIDE RECORDS SUMMARY | ~2018-09-18 | XMS | Encounter Summary ---
Demographics + + + | Address | [address] | | | [place] [address] | + + + | Home Phone | | + + + | Preferred Language | Unknown | + + + | Marital Status | | + + + | Alevism Affiliation | 1076 | + + + | Race | Unknown | + + + | Ethnic Group | Unknown | + + + Author + + + | Author | [email or web address] | + + + | Organization | [facility] | + + + | Address [...] Team Providers + +------+ + | Care Community Services Coordinator Name | Role | Phone | + +------+ + | Andry Deng MD | PCP | | + +------+ + Reason for Visit +--------+ + | Reason | Comments | +--------+ + | Other | June 2018-[facility] Provider Dialysis Rounding Note | +--------+ + Encounter Details +--------+ + + + + | Date | Type | Department | Care Team | Description | +--------+ + + + + | 08/08/ | Documentati | [facility] | Jayy Christianson MD | Other (June | | 2019 | on Only | [place] [address] | [address] | 2019-[facility] Provider | | | | [address] | [address] [place], [place] | Dialysis Rounding | | | | [place] [address] | [phone] | Note) | | | | [phone] | | | +--------+ + + + [...]
--- OUTSIDE RECORDS SUMMARY | ~2018-09-18 | XMS | Clinical Summary ---
Demographics + + + | Address | [address] | | | [place] [address] | + + + | Home Phone | | + + + | Preferred Language | Unknown | + + + | Marital Status | | + + + | Moravian Affiliation | 1076 | + + + | Race | Unknown | + + + | Ethnic Group | Unknown | + + + Author + + + | Author | [facility] | + + + | Organization | [facility] | + + + | Address [...] Team Providers + +------+ + | Care Mosaic Technician Name | Role | Phone | [...] | | | | | | dialysis ([facility]) | | | | | | | [...] | | | | | | dialysis ([facility]) | | | | | | | [...] + + + | 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 | + + + [...] + | Mother | | | from [place] | | | | (Age | | [...] Stent | Right: | | | | [id number] | | 40-09/11/2016Implanted: | | | | [...] Stent | Right: | | | | [id number] | | 60-09/11/2016Implanted: | | | | | | / | | 09/11/2016 by Jimenez Garnica, | | [employer] | | | | [id number] | | PhD (Quantity not on | | vian | | | | 524 | | file) | | | | | | | + +-------+--------+ +--------+--------+--------+ | Hemodialysis Catheter 12x20 | | Left: | | | 10/05/ | [id number] | | Curved - Sn/AImplanted: Qty: | | Neck | | | 2013 | [id number] | | 1 on 07/07/2012 by Oskar Meyer | | | | | | /N/A | | MD Yan | | | | | | /[id number] | | | | | | | | 5X | + +-------+--------+ +--------+--------+--------+ | Catheter Hemodialysis Alpha | | Left: | | | 02/22/ | [id number] | | Pre Cvd Halfway Std | | Neck | | | 2012 | 0 | | Hemosplit 14.5 24cm - | | | | | | /[id number] | | [id number]: Qty: 1 on | | | | [...] +------+-------+ + | MEDICARE | MEDICA | [id number] | | | [address] | | | RE | | | | [place] [address] | | | IP-OP | | | | | + +--------+ +------+-------+ + | MEDICAID | MEDICA | [id number] | | | [address] | | | ID | | | | [place] | | | [place] | | | | [address] | + +--------+ +------+-------+ + | [facility] | YELLOW | [id number] | | | | | PLANS | [...] | Self | [birth year] | Home: | [address] | | | al/Fam | | 1965 | [phone] | [place] | | | [place] | | | [phone] | [phone] | + +--------+ +--------+ + +
--- OUTSIDE RECORDS SUMMARY | ~2018-09-18 | XMS | Encounter Summary ---
Demographics + + + | Address | [address] | | | [place] [address] | + + + | Home Phone | | + + + | Preferred Language | Unknown | + + + | Marital Status | | + + + | Yarsanism Affiliation | 1076 | + + + | Race | Unknown | + + + | Ethnic Group | Unknown | + + + Author + + + | Author | [email or web address] | + + + | Organization | [facility] | + + + | Address [...] Providers + +------+ + | Care Electrical Line Mechanic Name | Role | Phone | + [...] | | 2019 | on Only | [place] [address] | [address] | 2019-[facility] Provider | | | | [address] | [address] [place], [place] | Dialysis Rounding | | | | [place] [address] | [phone] | Note) | | | | [phone] | | | +--------+ + + + [...]
--- OUTSIDE RECORDS SUMMARY | ~2018-09-18 | XMS | Encounter Summary ---
Demographics + + + | Address | [address] | | | [place] [address] | + + + | Home Phone | | + + + | Preferred Language | Unknown | + + + | Marital Status | | + + + | Evangelical Affiliation | 1076 | + + + | Race | Unknown | + + + | Ethnic Group | Unknown | + + + Author + + + | Author | [email or web address] | + + + | Organization | [facility] | + + + | Address [...] Providers + +------+ + | Care Plastic Card Grader Cardroom Name | Role | Phone | + +------+ + | Andry Deng MD | PCP | | + +------+ + Reason for Visit +--------+ + | Reason | Comments | +--------+ + | Other | May 2018-[facility] Provider Dialysis Roundshanae Note | +--------+ + Encounter Details +--------+ + + + + | Date | Type | Department | Care Team | Description | +--------+ + + + + | 07/02/ | Documentati | [facility] | Jayy Christianson MD | Other (May | | 2019 | on Only | [place] [address] | [address] | 2018-[facility] Provider | | | | [address] | [address] [place], [place] | Dialysis Rounding | | | | [place] [address] | [id number] | Note) | | | | [phone] | | | +--------+ + + + [...]
--- OUTSIDE RECORDS SUMMARY | ~2018-09-18 | XMS | Encounter Summary ---
Demographics + + + | Address | [address] | | | [place] [address] | + + + | Home Phone | | + + + | Preferred Language | Unknown | + + + | Marital Status | | + + + | Restorationism Affiliation | 1076 | + + + | Race | Unknown | + + + | Ethnic Group | Unknown | + + + Author + + + | Author | [email or web address] | + + + | Organization | [facility] | + + + | Address [...] Team Providers + +------+ + | Care Blood Bank Order Control Clerk Name | Role | Phone | [...] | | 2019 | on Only | [place] [address] | [address] | 2019-[facility] Provider | | | | [address] | [address] [place], [place] | Dialysis Rounding | | | | [place] [address] | [phone] | Note) | | | | [phone] | | | +--------+ + + + [...]
--- OUTSIDE RECORDS SUMMARY | ~2018-09-18 | XMS | Encounter Summary ---
Demographics + + + | Address | [address] | | | [place] [address] | + + + | Home Phone | | + + + | Preferred Language | Unknown | + + + | Marital Status | | + + + | Samaritan Affiliation | 1076 | + + + | Race | Unknown | + + + | Ethnic Group | Unknown | + + + Author + + + | Author | [employer] | + + + | Organization | [employer] | + + + | Address [...] Team Providers + +------+ + | Care Stamping Die Maker Bench Name | Role | Phone | + +------+ + | Andry Deng MD | PCP | | + +------+ + Reason for Visit +--------+ + | Reason | Comments | +--------+ + | Other | Prior auth request sent to [facility] | +--------+ + Encounter Details +--------+ + + + + | Date | Type | Department | Care Team | Description | +--------+ + + + + | 07/16/ | Documentati | [facility] | Pete, | Other (Prior auth | | 2019 | on Only | [place] [address] | [place]ASIA Riggins | request sent to | | | | [address] | | [facility]) | | | | [place] [address] | | | | | | [phone] | | | +--------+ + + + + Social History + +-------+ +--------+ + | Tobacco Use | Types | Packs/Day | Years | Date | | | | | Used | | + +-------+ +--------+ + | Former Smoker | | | 23 | Quit: 04/28/2011 | + [...]
--- OUTSIDE RECORDS SUMMARY | ~2018-09-18 | XMS | Encounter Summary ---
Demographics + + + | Address | [address] | | | [place] [address] | + + + | Home Phone | | + + + | Preferred Language | Unknown | + + + | Marital Status | | + + + | Samaritan Affiliation | 1076 | + + + | Race | Unknown | + + + | Ethnic Group | Unknown | + + + Author + + + | Author | [employer] | + + + | Organization | [employer] | + + + | Address [...] Team Providers + +------+ + | Care Roll Up Machine Operator Name | Role | Phone [...] on Only | [place] [address] | [place] | request sent to | | | | [address] | | Breana) | | | | [place] [address] | | | | | | [phone] | | | +--------+ + + + [...]
--- OUTSIDE RECORDS SUMMARY | ~2018-09-18 | XMS | Encounter Summary ---
Demographics + + + | Address | [address] | | | [place] [address] | + + + | Home Phone | | + + + | Preferred Language | Unknown | + + + | Marital Status | | + + + | Spiritism Affiliation | 1076 | + + + | Race | Unknown | + + + | Ethnic Group | Unknown | + + + Author + + + | Author | [employer] | + + + | Organization | [employer] | + + + | Address [...] Team Providers + +------+ + | Care Semiconductor Development Technician Name | Role | Phone | [...] | | 2019 | on Only | [place] [address] | [address] | 2019-[facility] Provider | | | | [address] | [address] [place], [place] | Dialysis Rounding | | | | [place] [address] | [phone] | Note) | | | | [phone] | | | +--------+ + + + [...]
--- OUTSIDE RECORDS SUMMARY | ~2018-09-18 | XMS | Encounter Summary ---
Demographics + + + | Address | [address] | | | [place] [address] | + + + | Home Phone | | + + + | Preferred Language | Unknown | + + + | Marital Status | | + + + | Alevism Affiliation | 1076 | + + + | Race | Unknown | + + + | Ethnic Group | Unknown | + + + Author + + + | Author | [employer] | + + + | Organization | [employer] | + + + | Address [...] Providers + +------+ + | Care Cognos Name | Role | Phone | + [...] | | 2019 | on Only | [place] [address] | [address] | 2018-[facility] Provider | | | | [address] | [address] [place], [place] | Dialysis Rounding | | | | [place] [address] | [phone] | Note) | | | | [phone] | | | +--------+ + + + [...]
[~2018-09-18 14:11] MED LIST changes: +COMBIVENT RESPIM4 GM INH; +COUMADIN1 MG PO; +COUMADIN5 MG PO; +FOSRENOL1000 MG PO; +SYMBICORT 16010.2 GM INH; +TESSALON PERLE100 MG PO
--- OUTSIDE RECORDS SUMMARY | 2018-09-18 14:14 | XMS ---
PreManage Notification: CAROL STANTON Security Metal Inspector Events No recent Security Events currently on file CRITERIA MET - Group Notification - [facility] - Has Care Guidelines - PDMP CARE PROVIDERS ROSA LOFTON [facility] 01/24/2018-Current PHONE: Unknown Reinaldo has no Care Guidelines for this patient. Care History Medical/Surgical 02/13/2018 [facility] - PATIENT IS FOLLOWING VERY CLOSELY WITH [facility] REVENUE STAMP CLERK HARDIK WATSON. - PLEASE CALL SHIRLEY AT [phone] IF PATIENT IS SEEN IN THE ED. - PATIENT HAS A LONG EXTENSIVE HX WITH METHAMPHETAMINE USAGE. - PHYSICIAN DISCRETION- TOX SCREEN BEFORE TREATMENT. Care Recommendation: - USE EXTREME CAUTION IN GIVING NARCOTICS TO THIS PATIENT. - Avoid Discharge Narcotic prescriptions if at all possible. Please use clinical judgement. 02/04/2018 [facility] - PATIENT IS CURRENTLY ON COUMADIN [...] all possible. Please use clinical judgement. 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 -[facility] -Patient does have concerns with [...] ED please contact Community Health WorkerBetzy at [phone]. These are guidelines and the provider should exercise clinical judgment when providing care. E.D. VISIT COUNT (12 MO.) 2 [facility] 1 [facility] NOTE: Visits indicate total known visits. ED/C VISIT TRACKING (12 MO.) 09/18/2018 14:12 [facility] TYPE: Emergency COMPLAINT: - RIGHT ARM PAIN NON INJURY 08/12/2018 07:57 [facility] [place] TYPE: Emergency COMPLAINT: - COUGH DIAGNOSES: - Type 2 diabetes mellitus with diabetic chronic kidney disease - Other penitentiary (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 - Allergy status to penicillin - Allergy status to other drugs, medicaments and biological substances status - Bronchitis, not specified as acute or chronic - Hypertensive chronic kidney disease with stage 5 chronic kidney disease or end stage renal disease - End stage renal disease - Constipation, unspecified - Cough - Chronic sinusitis, unspecified - buttermaker continuous churn (current) use of anticoagulants 07/20/2018 17:20 [facility] [place] TYPE: Emergency COMPLAINT: - R LEG LAC DIAGNOSES: - Gastro-esophageal reflux disease without esophagitis - Atherosclerotic heart disease of tangirnaq coronary artery without angina pectoris - buttermaker continuous churn (current) use of anticoagulants - Dependence on renal dialysis - End stage renal disease - Striking against or struck by other objects, initial encounter - Allergy status to penicillin - Unspecified asthma, uncomplicated - Other long term care social worker (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 - Allergy status to [...] - End stage renal disease - Other penitentiary (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 - Type 2 diabetes mellitus with diabetic chronic kidney disease - Hypertensive chronic kidney disease with stage 5 chronic kidney disease or end stage renal disease - penitentiary (current) use of anticoagulants - Allergy status to penicillin - Atherosclerotic heart disease of tangirnaq coronary artery without angina pectoris - Allergy [...] agents status - Atherosclerotic heart disease of tangirnaq coronary artery without angina pectoris - Allergy status to penicillin - Other long term care social worker (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 - Hypothyroidism, unspecified - Gastro-esophageal reflux disease without esophagitis - Allergy status to other drugs, medicaments and biological substances status - Type 2 diabetes mellitus with diabetic chronic kidney disease - Unspecified asthma, uncomplicated - Hypertensive chronic kidney disease with stage 5 chronic kidney disease or end stage renal disease - penitentiary (current) use of anticoagulants 02/23/2018 13:08 [facility] [...] Gastro-esophageal reflux disease without esophagitis - Other penitentiary (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 - Cervicalgia - Hypothyroidism, [...] status to other antibiotic agents status - buttermaker continuous churn (current) use of anticoagulants - Unspecified asthma, uncomplicated 02/03/2018 15:04 [facility] [place] TYPE: Emergency COMPLAINT: - HEAD PAIN/NO INJURY DIAGNOSES: - Personal history of nicotine dependence - Type 2 diabetes mellitus with diabetic chronic kidney disease - End stage renal disease - Headache - Other long term care social worker (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 - Dependence on renal dialysis - Hypothyroidism, unspecified - Allergy status to other antibiotic agents status - Allergy status to other drugs, medicaments and biological substances status - buttermaker continuous churn (current) use of anticoagulants - Allergy status to penicillin - Hypertensive chronic kidney disease with stage 5 chronic kidney disease or end stage renal disease 02/03/2018 10:59 [facility] TYPE: Emergency DIAGNOSES: - MARTINEZ/eye pain - Procedure and treatment not carried out due to patient leaving prior to being seen by health care provider 01/23/2018 13:43 [facility] [place] TYPE: Emergency COMPLAINT: - HEAD PAIN/NO INJURY DIAGNOSES: - Personal history of nicotine dependence - Dependence on renal dialysis - Type 2 diabetes mellitus with diabetic chronic kidney disease - buttermaker continuous churn (current) use of anticoagulants - Allergy status to other drugs, medicaments and biological substances status - Allergy status to penicillin - Headache - Local infection of the skin and subcutaneous tissue, unspecified - End stage renal disease - Other long term care social worker (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 - Pruritus, unspecified - [...] Gastro-esophageal reflux disease without esophagitis - Other long term care social worker (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 - End stage renal disease - Personal history of nicotine dependence - Allergy status to other antibiotic agents status - Dependence on renal dialysis 10/07/2017 03:15 [facility] TYPE: Emergency DIAGNOSES: - Pain, unspecified - [...] Gastro-esophageal reflux disease without esophagitis - Other penitentiary (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 - Hypertensive chronic kidney disease with stage 1 through stage 4 chronic kidney disease, or unspecified chronic kidney disease - Other specified soft tissue disorders - Allergy status to penicillin - Cellulitis of right upper limb [facility] DIAGNOSES: - Dependence on renal dialysis - Cellulitis of right upper limb - Vascular Access Problem - End stage renal disease INPATIENT VISIT TRACKING (12 MO.) 10[facility]07[facility]2017 [facility] DIAGNOSES: - Pain, [...] vascular devices, implants and grafts, subsequent encounter [email or web address]
== END 2018-09-18 17:14 | disposition home or self-care (01) ==
LOC: ED 14:11
DX: I12.9 Hypertensive chronic kidney disease with stage 1 through stage 4 chronic kidney disease, or unspecified chronic kidney disease (principal); N18.9 Chronic kidney disease, unspecified; Z99.2 Dependence on renal dialysis; I25.10 Atherosclerotic heart disease of native coronary artery without angina pectoris; J45.909 Unspecified asthma, uncomplicated; E03.9 Hypothyroidism, unspecified; K21.9 Gastro-esophageal reflux disease without esophagitis; N18.6 End stage renal disease; E11.22 Type 2 diabetes mellitus with diabetic chronic kidney disease; Z86.718 Personal history of other venous thrombosis and embolism; Z95.5 Presence of coronary angioplasty implant and graft; Z88.0 Allergy status to penicillin; Z88.8 Allergy status to other drugs, medicaments and biological substances; Z88.1 Allergy status to other antibiotic agents; Z79.52 Long term (current) use of systemic steroids; Z79.899 Other long term (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; Z79.01 Long term (current) use of anticoagulants
CPT/HCPCS: 93971; 99283-25

== ENCOUNTER 2018-11-03 21:34 | Emergency (ER) | payer MEDICARE, OTHER ==
[~2018-11-03] VITALS: Ht 170.2 cm; Wt 85.7 kg
--- OUTSIDE RECORDS SUMMARY | ~2018-11-03 | XMS | Encounter Summary ---
Demographics + + + | Address | [address] | | | [place] [address] | + + + | Home Phone | | + + + | Preferred Language | Unknown | + + + | Marital Status | | + + + | Hoahaoism Affiliation | 1076 | + + + | Race | Unknown | + + + | Ethnic Group | Unknown | + + + Author + + + | Author | [employer] | + + + | Organization | [employer] | + + + | Address [...] Team Providers + +------+ + | Care Manufacturing Project Engineer Name | Role | Phone | + +------+ + | Andry Deng MD | PCP | | + +------+ + Reason for Visit +--------+ + | Reason | Comments | +--------+ + | Other | September 2018-[facility] Provider Dialysis Rounding Note | +--------+ + Encounter Details +--------+ + + + + | Date | Type | Department | Care Team | Description | +--------+ + + + + | 10/31/ | Documentati | [facility] | Jayy Christianson MD | Other (September | | 2018 | on Only | [place] [address] | [address] | 2019-[facility] Provider | | | | [address] | [address] [place], [place] | Dialysis Rounding | | | | [place] [address] | [phone] | Note) | | | | [phone] | | | +--------+ + + + [...]
--- OUTSIDE RECORDS SUMMARY | ~2018-11-03 | XMS | Encounter Summary ---
Demographics + + + | Address | [address] | | | [place] [address] | + + + | Home Phone | | + + + | Preferred Language | Unknown | + + + | Marital Status | | + + + | Sabianist Affiliation | 1076 | + + + | Race | Unknown | + + + | Ethnic Group | Unknown | + + + Author + + + | Author | [employer] | + + + | Organization | [employer] | + + + | Address [...] Team Providers + +------+ + | Care Software Requirements Engineer Name | Role | Phone | + +------+ + | Andry Deng MD | PCP | | + +------+ + Reason for Visit +--------+ + | Reason | Comments | +--------+ + | Other | July 2018-[facility] Provider Dialysis Roundshanae Note | +--------+ + Encounter Details +--------+ + + + + | Date | Type | Department | Care Team | Description | +--------+ + + + + | 08/29/ | Documentati | [facility] | Jayy Christianson MD | Other (July | | 2019 | on Only | [place] [address] | [address] | 2019-[facility] Provider | | | | [address] | [address] [place], [place] | Dialysis Rounding | | | | [place] [address] | [phone] | Note) | | | | [phone] | | | +--------+ + + + [...]
--- OUTSIDE RECORDS SUMMARY | ~2018-11-03 | XMS | Clinical Summary ---
Demographics + + + | Address | [address] | | | [place] [address] | + + + | Home Phone | | + + + | Preferred Language | Unknown | + + + | Marital Status | | + + + | Scientology Affiliation | 1076 | + + + | Race | Unknown | + + + | Ethnic Group | Unknown | + + + Author + + + | Author | [employer] | + + + | Organization | [employer] | + + + | Address [...] Team Providers + +------+ + | Care Php Web Developer Name | Role | Phone | [...] | | | | | | dialysis ([facility]) | | | | | [...] | | | | | | dialysis ([facility]) | | | | | [...] Once | tablet | | 02/10 | | e | | tablet | daily-Coumadin. 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 | + + + [...] + + | 10/31/ | Documentati | | Jayy Christianson MD | Other (September | 2018 | on Only | | | 2018-[facility] Provider | | | | | | Dialysis Rounding | | | | | | Note) | +--------+ + + + + | 10/01/ | Documentati | | Jayy Christianson MD | Other (August | on Only | | | 2018-[facility] Provider | | | | | | Dialysis Rounding | | | | | | Note) | +--------+ + + + + | 08/29/ | Documentati | | Jayy Christianson MD | Other (July | | 2018 | on Only | | | 2018-[facility] Provider | | | | | | Dialysis Rounding | | | | | | Note) | +--------+ + + + + | 08/08/ | Documentati | | Jayy Christianson MD | Other (June | 2018 | on Only | | [...] + | Mother | | | from [place] | | | | (Age | | [...] | | | | (Season Ended) | 9 | | | + + [...] Stent | Right: | | | | [id number] | | 40-09/11/2016Implanted: | | | | [...] Stent | Right: | | | | [id number] | | 60-09/11/2016Implanted: | | | | | | / | | 09/11/2016 by Jimenez Garnica, | | [employer] | | | | [id number] | | PhD (Quantity not on | | vian | | | | 524 | | file) | | | | | | | + +-------+--------+ +--------+--------+--------+ | Hemodialysis Catheter 12x20 | | Left: | | | 10/05/ | [id number] | | Curved - Sn/AImplanted: Qty: | | Neck | | | 2013 | [id number] | | 1 on 07/07/2012 by Oskar Meyer | | | | | | /N/A | | MD Yan | | | | | | /[id number] | | | | | | | | 5X | + +-------+--------+ +--------+--------+--------+ | Catheter Hemodialysis Alpha | | Left: | | | 02/22/ | [id number] | | Pre Cvd Truck Car And Bus Cleaner Std | | Neck | | | 2012 | 0 | | Hemosplit 14.5 24cm - | | | | | | /[id number] | | [id number]: Qty: 1 on | | | | [...] +------+-------+ + | MEDICARE | MEDICA | [id number] | | | [address] | | | RE | | | | [place] [address] | | | IP-OP | | | | | + +--------+ +------+-------+ + | MEDICAID | MEDICA | [id number] | | | [address] | | | ID | | | | [place] | | | [place] | | | | [address] | + +--------+ +------+-------+ + | [facility] | YELLOW | [id number] | | | | | PLANS | [...] | Self | [birth year] | Home: | [address] | | | al/Fam | | 1965 | [phone] | [place] | | | juan | | | [phone] | [phone] | + +--------+ +--------+ + +
--- OUTSIDE RECORDS SUMMARY | ~2018-11-03 | XMS | Encounter Summary ---
Demographics + + + | Address | [address] | | | [place] [address] | + + + | Home Phone | | + + + | Preferred Language | Unknown | + + + | Marital Status | | + + + | Presybeterian Affiliation | 1076 | + + + | Race | Unknown | + + + | Ethnic Group | Unknown | + + + Author + + + | Author | [employer] | + + + | Organization | [employer] | + + + | Address [...] Team Providers + +------+ + | Care Field Representative Name | Role | Phone | [...] | | 2019 | on Only | [place] [address] | [address] | 2019-[facility] Provider | | | | [address] | [address] [place], [place] | Dialysis Rounding | | | | [place] [address] | [phone] | Note) | | | | [phone] | | | +--------+ + + + [...]
--- OUTSIDE RECORDS SUMMARY | ~2018-11-03 | XMS | Encounter Summary ---
Demographics + + + | Address | [address] | | | [place] [address] | + + + | Home Phone | | + + + | Preferred Language | Unknown | + + + | Marital Status | | + + + | Confucianist Affiliation | 1076 | + + + | Race | Unknown | + + + | Ethnic Group | Unknown | + + + Author + + + | Author | [employer] | + + + | Organization | [employer] | + + + | Address [...] Team Providers + +------+ + | Care Musculoskeletal Physician Name | Role | Phone | + +------+ + | Adnry Deng MD | PCP | | + [...] | | 2019 | on Only | [place] [address] | [address] | 2019-[facility] Provider | | | | [address] | [address] [place], [place] | Dialysis Rounding | | | | [place] [address] | [phone] | Note) | | | | [phone] | | | +--------+ + + + [...]
--- OUTSIDE RECORDS SUMMARY | ~2018-11-03 | XMS | Encounter Summary ---
Demographics + + + | Address | [address] | | | [place] [address] | + + + | Home Phone | | + + + | Preferred Language | Unknown | + + + | Marital Status | | + + + | Gnosticist Affiliation | 1076 | + + + | Race | Unknown | + + + | Ethnic Group | Unknown | + + + Author + + + | Author | [employer] | + + + | Organization | [employer] | + + + | Address [...] Team Providers + +------+ + | Care Vp Of Technology Name | Role | Phone | + [...] [address] | [address] | 2019-[facility] Provider | | | | [address] | [address] [place], [place] | Dialysis Rounding | | | | [place] [address] | [phone] | Note) | | | | [phone] | | | +--------+ + + + [...]
--- OUTSIDE RECORDS SUMMARY | ~2018-11-03 | XMS | Encounter Summary ---
Demographics + + + | Address | [address] | | | [place] [address] | + + + | Home Phone | | + + + | Preferred Language | Unknown | + + + | Marital Status | | + + + | Episcopalian Affiliation | 1076 | + + + | Race | Unknown | + + + | Ethnic Group | Unknown | + + + Author + + + | Author | [employer] | + + + | Organization | [employer] | + + + | Address [...] Team Providers + +------+ + | Care Range Aid Name | Role | Phone | + +------+ + | Andry Deng MD | PCP | | + +------+ + Reason for Visit +--------+ + | Reason | Comments | +--------+ + | Other | August 2018-[facility] Provider Luke Rounding Note | +--------+ + Encounter Details +--------+ + + + + | Date | Type | Department | Care Team | Description | +--------+ + + + + | 10/01/ | Documentati | [facility] | Jayy Christianson MD | Other (August | | 2019 | on Only | [place] [address] | [address] | 2019-[facility] Provider | | | | [address] | [address] [place], [place] | Dialysis Rounding | | | | [place] [address] | [address] | Note) | | | | [phone] | | | +--------+ + + + [...]
--- OUTSIDE RECORDS SUMMARY | ~2018-11-03 | XMS | Clinical Summary ---
Demographics + + + | Address | [address] | | | [place] [address] | + + + | Home Phone | | + + + | Preferred Language | Unknown | + + + | Marital Status | | + + + | Episcopalian Affiliation | 1076 | + + + | Race | Unknown | + + + | Ethnic Group | Unknown | + + + Author + + + | Author | [employer] | + + + | Organization | [employer] | + + + | [...] Team Providers + +------+ + | Care Marine Resource Economist Name | Role | Phone | + [...] | | | | | | dialysis ([facility]) | | | | | [...] | | | | | | dialysis ([facility]) | | | | | [...] + + + | 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[facility]) | 07/22/2017 | + + + | Psoriasis-like skin disease | 02/19/2017 | + + + | Eczema of both upper extremities | 02/16/2017 | + + + | S/P pericardiocentesis | 09/12/2016 | + + + | Hyponatremia | 09/08/2016 | + + + | Polysubstance abuse ([facility]) | 04/28/2016 | + + [...] + | Mother | | | from [place] | | | | (Age | | [...] Stent | Right: | | | | [id number] | | 40-09/11/2016Implanted: | | | | [...] Stent | Right: | | | | [id number] | | 60-09/11/2016Implanted: | | | | | | / | | 09/11/2016 by Jimenez Garnica, | | [employer] | | | | [id number] | | PhD (Quantity not on | | vian | | | | 524 | | file) | | | | | | | + +-------+--------+ +--------+--------+--------+ | Hemodialysis Catheter 12x20 | | Left: | | | 10/05/ | [id number] | | Curved - Sn/AImplanted: Qty: | | Neck | | | 2013 | [id number] | | 1 on 07/07/2012 by Oskar Meyer | | | | | | /N/A | | MD Yan | | | | | | /[id number] | | | | | | | | 5X | + +-------+--------+ +--------+--------+--------+ | Catheter Hemodialysis Alpha | | Left: | | | 02/22/ | [id number] | | Pre Cvd Salesperson Furniture Std | | Neck | | | 2012 | 0 | | Hemosplit 14.5 24cm - | | | | | | /[id number] | | [id number]: Qty: 1 on | | | | [...] +------+-------+ + | MEDICARE | MEDICA | [id number] | | | [address] | | | RE | | | | [place] [address] | | | IP-OP | | | | | + +--------+ +------+-------+ + | MEDICAID | MEDICA | [id number] | | | [address] | | | ID | | | | [place] | | | [place] | | | | [address] | + +--------+ +------+-------+ + | [facility] | YELLOW | [id number] | | | | | PLANS | [...] | Self | [birth year] | Home: | [address] | | | al/Fam | | 1965 | [phone] | [place] | | | juan | | | [address] | [address] | + +--------+ +--------+ + +
--- OUTSIDE RECORDS SUMMARY | ~2018-11-03 | XMS | Clinical Summary ---
Demographics + + + | Address | [address] | | | [place] [address] | + + + | Home Phone [...] Team Providers + +------+ + | Care Cross Country/Track And Field Coach Name | Role | Phone | + [...] + + | Penicillins | | | 12/14/20 | | | | | | 10 [...] pad to wipe | | 0 | 02/22 | | [...] as directed by | | 0 | 02/22 | | Activ | | MISC | physician | | | 4/20 | | e | | | | | | 12 | | | + + + +---------+------+------+-------+ | telmisartan | Take 40 mg by mouth | | 0 | 02/22 | | Activ | | (MICARDIS) 40 mg | Daily. | | | 4/20 | | e | | tablet | | | | 12 | | | + + + +---------+------+------+-------+ Active Problems + + + | Problem | Noted Date | + + + | Chronic gouty arthritis | | + + + + + | Overview: JAMIL [id number] Decision | + + + +---+ | [...] Body Mass Index | 29.47 | 04/26/2010 0000 PDT | + + + + Plan [...]
--- OUTSIDE RECORDS SUMMARY | ~2018-11-03 | XMS | Encounter Summary ---
Demographics + + + | Address | [address] | | | [place] [address] | + + + | Home Phone | | + + + | Preferred Language | Unknown | + + + | Marital Status | | + + + | Confucianism Affiliation | 1076 | + + + | Race | Unknown | + + + | Ethnic Group | Unknown | + + + Author + + + | Author | [employer] | + + + | Organization | [employer] | + + + | Address [...] Providers + +------+ + | Care Agricultural Aircraft Pilot Name | Role | Phone | + [...] | | 2019 | on Only | [address] | 2019-[facility] Provider | | | | [address] | [address] [place], [place] | Dialysis Rounding | | | | [place] [address] | [phone] | Note) | | | | [phone] | | | +--------+ + + + [...]
--- OUTSIDE RECORDS SUMMARY | ~2018-11-03 | XMS | Clinical Summary ---
Demographics + + + | Address | [address] | | | [place] [address] | + + + | Home Phone [...] Team Providers + +------+ + | Care Bus Operator Name | Role | Phone | [...] + + + + | Overview: JAMIL [id number] Decision | + + + +---+ | [...]
--- OUTSIDE RECORDS SUMMARY | ~2018-11-03 | XMS | Encounter Summary ---
Demographics + + + | Address | [address] | | | [place] [address] | + + + | Home Phone | | + + + | Preferred Language | Unknown | + + + | Marital Status | | + + + | Pentecostal Affiliation | [id number] | + + + | Race | Unknown | + + + | Ethnic Group | Unknown | + + + Author + + + | Author | [employer] | + + + | Organization | [employer] | + + + | Address [...] Team Providers + +------+ + | Care Molder Wax Ball Name | Role | Phone | + [...] | | 2019 | on Only | [place] [address] | [address] | 2019-[facility] Provider | | | | [address] | [address] [place], [place] | Dialysis Rounding | | | | [place] [address] | [id number] | Note) | | | | [phone] | | | +--------+ + + + [...]
--- OUTSIDE RECORDS SUMMARY | 2018-11-03 21:36 | XMS ---
PreManage Notification: CAROL STANTON [employer] Events No recent Security Events currently on file CRITERIA MET - Group Notification - [facility] - Has Care Guidelines - PDMP CARE PROVIDERS ROSA LOFTON [facility] 01/24/2018-Current PHONE: Unknown Reinaldo has no Care Guidelines for this patient. Care History Medical/Surgical 02/13/2018 [facility] - PATIENT IS FOLLOWING VERY CLOSELY WITH [facility] SIDING APPLICATOR HARDIK WATSON. - PLEASE CALL SHIRLEY AT [phone] IF PATIENT IS SEEN IN THE ED. - PATIENT HAS A LONG EXTENSIVE HX WITH METHAMPHETAMINE USAGE. - PHYSICIAN DISCRETION- TOX SCREEN BEFORE TREATMENT. Care Recommendation: - USE EXTREME CAUTION IN GIVING NARCOTICS TO THIS PATIENT. - Avoid Discharge Narcotic prescriptions if at all possible. Please use clinical judgement. 02/04/2018 [facility] - PATIENT IS CURRENTLY ON COUMADIN AND [...] all possible. Please use clinical judgement. 09/02/2017 [facility] -[facility] [employer] cutting machine operator helper team last seen patient on 01/23/18. -[facility] -Patient does have concerns with patient memory. [...] ED please contact Community Health WorkerBetzy at [phone]. These are guidelines and the provider should exercise clinical judgment when providing care. E.D. VISIT COUNT (12 MO.) 1 [place] 11 NE[facility]HA Blak[place] TOTAL 12 NOTE: Visits indicate total known visits. ED/UCC VISIT TRACKING (12 MO.) 11/03/2018 21:34 [facility] [place] TYPE: Emergency COMPLAINT: - SOB 09/18/2018 14:12 [facility] [place] TYPE: Emergency COMPLAINT: - RIGHT ARM PAIN NON INJURY DIAGNOSES: - Personal history of other venous thrombosis and embolism - Hypertensive chronic kidney disease with stage 1 through stage 4 chronic kidney disease, or unspecified chronic kidney disease - Hypothyroidism, unspecified - salvage determiner (current) use of systemic steroids - Allergy status to penicillin - End stage renal disease - Unspecified asthma, uncomplicated - Allergy status to other drugs, medicaments and biological substances status - Type 2 diabetes mellitus with diabetic chronic kidney disease - MCFP (current) use of anticoagulants - Other specified soft tissue disorders - Other assisted (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 - Gastro-esophageal reflux disease without esophagitis - Atherosclerotic heart disease of [place] coronary artery without angina pectoris - Dependence on renal dialysis - Allergy status to other antibiotic agents status - Presence of coronary angioplasty implant and graft - Chronic kidney disease, unspecified 08/12/2018 07:57 [facility] [place] TYPE: Emergency COMPLAINT: - COUGH DIAGNOSES: - Type 2 diabetes mellitus with diabetic chronic kidney disease - Other assisted (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 - Allergy status to penicillin - Allergy status to other drugs, medicaments and biological substances status - Bronchitis, not specified as acute or chronic - Hypertensive chronic kidney disease with stage 5 chronic kidney disease or end stage renal disease - End stage renal disease - Constipation, unspecified - Cough - Chronic sinusitis, unspecified - MCFP (current) use of anticoagulants 07/20/2018 17:20 [facility] [place] TYPE: Emergency COMPLAINT: - R LEG LAC DIAGNOSES: - Gastro-esophageal reflux disease without esophagitis - Atherosclerotic heart disease of [place] coronary artery without angina pectoris - salvage determiner (current) use of anticoagulants - Dependence on renal dialysis - End stage renal disease - Striking against or struck by other objects, initial encounter - Allergy status to penicillin - Unspecified asthma, uncomplicated - Other salvage determiner (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 - Allergy status to [...] - End stage renal disease - Other assisted (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 - Type 2 diabetes mellitus with diabetic chronic kidney disease - Hypertensive chronic kidney disease with stage 5 chronic kidney disease or end stage renal disease - MCFP (current) use of anticoagulants - Allergy status to penicillin - Atherosclerotic heart disease of [place] coronary artery without angina pectoris - Allergy [...] agents status - Atherosclerotic heart disease of [place] coronary artery without angina pectoris - Allergy status to penicillin - Other salvage determiner (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 - Hypothyroidism, unspecified - Gastro-esophageal reflux disease without esophagitis - Allergy status to other drugs, medicaments and biological substances status - Type 2 diabetes mellitus with diabetic chronic kidney disease - Unspecified asthma, uncomplicated - Hypertensive chronic kidney disease with stage 5 chronic kidney disease or end stage renal disease - MCFP (current) use of anticoagulants 02/23/2018 13:08 NEISHA [...] Gastro-esophageal reflux disease without esophagitis - Other assisted (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 - Cervicalgia - Hypothyroidism, [...] status to other antibiotic agents status - MCFP (current) use of anticoagulants - Unspecified asthma, uncomplicated 02/03/2018 15:04 NEISHA Pichardo TYPE: Emergency COMPLAINT: - HEAD PAIN/NO INJURY DIAGNOSES: - Personal history of nicotine dependence - Type 2 diabetes mellitus with diabetic chronic kidney disease - End stage renal disease - Headache - Other assisted (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 - Dependence on renal dialysis - Hypothyroidism, unspecified - Allergy status to other antibiotic agents status - Allergy status to other drugs, medicaments and biological substances status - salvage determiner (current) use of anticoagulants - Allergy status to penicillin - Hypertensive chronic kidney disease with stage 5 chronic kidney disease or end stage renal disease 02/03/2018 10:59 [facility] TYPE: Emergency DIAGNOSES: - MARTINEZ/eye pain - Procedure and treatment not carried out due to patient leaving prior to being seen by health care provider 01/23/2018 13:43 [facility] [place] TYPE: Emergency COMPLAINT: - HEAD PAIN/NO INJURY DIAGNOSES: - Personal history of nicotine dependence - Dependence on renal dialysis - Type 2 diabetes mellitus with diabetic chronic kidney disease - salvage determiner (current) use of anticoagulants - Allergy status to other drugs, medicaments and biological substances status - Allergy status to penicillin - Headache - Local infection of the skin and subcutaneous tissue, unspecified - End stage renal disease - Other assisted (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 - Pruritus, unspecified - [...] Gastro-esophageal reflux disease without esophagitis - Other salvage determiner (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 - End stage renal disease - Personal history of nicotine dependence - Allergy status to other antibiotic agents status - Dependence on renal dialysis INPATIENT VISIT TRACKING (12 MO.) No inpatient visits to display in this time frame [email or web address]
[2018-11-03] MEDS ORDERED: TRUNEB NEBULIZ1 EACH INH (22:40)
--- NOTE | 2018-11-04 16:02 | EKG ---
[facility] [address] [place] [address] Signed Normal sinus rhythm Right bundle branch block Left posterior fascicular block Bifascicular block Abnormal ECG When compared with ECG of 26-MAR-2018 10:54, (RBBB and left posterior fascicular block) is now present Confirmed by MARGE KIRAN MD ([id number]) on 11/04/2018 4:02:07 PM Electronically Signed By: MARGE KIRAN MD 11/04/18 1602 PATIENT NAME: CAROL STANTON Electrocardiogram DATE OF : 61 PHYSICIAN: MARGE KIRAN MD REPORT #: [id number] REPORT IS CONFIDENTIAL AND NOT TO BE RELEASED WITHOUT AUTHORIZATION
== END 2018-11-03 22:59 | disposition home or self-care (01) ==
LOC: ED 21:34
DX: J45.901 Unspecified asthma with (acute) exacerbation (principal); E78.5 Hyperlipidemia, unspecified; I12.0 Hypertensive chronic kidney disease with stage 5 chronic kidney disease or end stage renal disease; N18.6 End stage renal disease; E11.9 Type 2 diabetes mellitus without complications; I25.10 Atherosclerotic heart disease of native coronary artery without angina pectoris; Z99.2 Dependence on renal dialysis; Z88.8 Allergy status to other drugs, medicaments and biological substances; Z88.0 Allergy status to penicillin; Z88.1 Allergy status to other antibiotic agents; Z79.01 Long term (current) use of anticoagulants; Z79.899 Other long term (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
CPT/HCPCS: 71045; 93005; 93010; 94640; 99285-25

== ENCOUNTER 2018-12-10 19:02 | Emergency (ER) | payer MEDICARE, OTHER ==
[~2018-12-10] VITALS: Ht 170.2 cm; Wt 85.7 kg
[~2018-12-10 19:02] MED LIST changes: +TRUNEB NEBULIZ1 EACH INH
--- OUTSIDE RECORDS SUMMARY | 2018-12-10 19:04 | XMS ---
PreManage Notification: CAROL STANTON Security Stone Finisher Events No recent Security Events currently on file CRITERIA MET - Group Notification - [facility] - Has Care Guidelines CARE PROVIDERS ORSA LOFTON [facility] 01/24/2018-Current PHONE: Unknown Reinaldo has no Care Guidelines for this patient. Care History Medical/Surgical 02/13/2018 [facility] - PATIENT IS FOLLOWING VERY CLOSELY WITH [facility] OPERATIONS MANAGER HARDIK WATSON. - PLEASE CALL SHIRLEY AT [phone] IF PATIENT IS SEEN IN THE ED. - PATIENT HAS A LONG EXTENSIVE HX WITH METHAMPHETAMINE USAGE. - PHYSICIAN DISCRETION- TOX SCREEN BEFORE TREATMENT. Care Recommendation: - USE EXTREME CAUTION IN GIVING NARCOTICS TO THIS PATIENT. - Avoid Discharge Narcotic prescriptions if at all possible. Please use clinical judgement. 02/04/2018 [facility] - PATIENT IS CURRENTLY ON COUMADIN AND [...] possible. Please use clinical judgement. 09/02/2017 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 -Patient receives INR draws from [facility]. -Patient does have concerns with patient [...] ED please contact Community Health WorkerBetzy at [phone]. These are guidelines and the provider should exercise clinical judgment when providing care. E.D. VISIT COUNT (12 MO.) [address] Carola Duran 12 NEISHA Blakely TOTAL 13 NOTE: Visits indicate total known visits. ED/C VISIT TRACKING (12 MO.) 12/10/2018 19:03 [facility] [place] TYPE: Emergency COMPLAINT: - WOUND CHECK 11/03/2018 21:34 [facility] [place] TYPE: Emergency COMPLAINT: - SOB DIAGNOSES: - senior care (current) use of anticoagulants - Atherosclerotic heart disease of [place] coronary artery without angina pectoris - Other buttermaker continuous churn (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 - Unspecified asthma with (acute) exacerbation - Shortness of breath - Hyperlipidemia, unspecified - Allergy status to other antibiotic agents status - End stage renal disease - Hypertensive chronic kidney disease with stage 5 chronic kidney disease or end stage renal disease - Type 2 diabetes mellitus without complications - Allergy status to other drugs, medicaments and biological substances status - Dependence on renal dialysis - Allergy status to penicillin 09/18/2018 14:12 [facility] [place] TYPE: Emergency COMPLAINT: - RIGHT ARM PAIN NON INJURY DIAGNOSES: - Personal history of other venous thrombosis and embolism - Hypertensive chronic kidney disease with stage 1 through stage 4 chronic kidney disease, or unspecified chronic kidney disease - Hypothyroidism, unspecified - terminal supervisor (current) use of systemic steroids - Allergy status to penicillin - End stage renal disease - Unspecified asthma, uncomplicated - Allergy status to other drugs, medicaments and biological substances status - Type 2 diabetes mellitus with diabetic chronic kidney disease - senior care (current) use of anticoagulants - Other specified soft tissue disorders - Other [facility] (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 - Gastro-esophageal reflux disease without esophagitis - Atherosclerotic heart disease of [place] coronary artery without angina pectoris - Dependence on renal dialysis - Allergy status to other antibiotic agents status - Presence of coronary angioplasty implant and graft - Chronic kidney disease, unspecified 08/12/2018 07:57 [facility] [place] TYPE: Emergency COMPLAINT: - COUGH DIAGNOSES: - Type 2 diabetes mellitus with diabetic chronic kidney disease - Other buttermaker continuous churn (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 - Allergy status to penicillin - Allergy status to other drugs, medicaments and biological substances status - Bronchitis, not specified as acute or chronic - Hypertensive chronic kidney disease with stage 5 chronic kidney disease or end stage renal disease - End stage renal disease - Constipation, unspecified - Cough - Chronic sinusitis, unspecified - terminal supervisor (current) use of anticoagulants 07/20/2018 17:20 [facility] [place] TYPE: Emergency COMPLAINT: - R LEG LAC DIAGNOSES: - Gastro-esophageal reflux disease without esophagitis - Atherosclerotic heart disease of [place] coronary artery without angina pectoris - senior care (current) use of anticoagulants - Dependence on renal dialysis - End stage renal disease - Striking against or struck by other objects, initial encounter - Allergy status to penicillin - Unspecified asthma, uncomplicated - Other buttermaker continuous churn (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 - Allergy status to [...] - End stage renal disease - Other buttermaker continuous churn (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 - Type 2 diabetes mellitus with diabetic chronic kidney disease - Hypertensive chronic kidney disease with stage 5 chronic kidney disease or end stage renal disease - senior care (current) use of anticoagulants - Allergy status to penicillin - Atherosclerotic heart disease of [place] coronary artery without angina pectoris - Allergy [...] agents status - Atherosclerotic heart disease of [place] coronary artery without angina pectoris - Allergy [...] disease or end stage renal disease - senior care (current) use of anticoagulants 02/23/2018 13:08 NEISHA [...] Gastro-esophageal reflux disease without esophagitis - Other buttermaker continuous churn (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 - Cervicalgia - Hypothyroidism, [...] status to other antibiotic agents status - senior care (current) use of anticoagulants - Unspecified asthma, uncomplicated 02/03/2018 15:04 [facility] [place] TYPE: Emergency COMPLAINT: - HEAD PAIN/NO INJURY DIAGNOSES: - Personal history of nicotine dependence - Type 2 diabetes mellitus with diabetic chronic kidney disease - End stage renal disease - Headache - Other buttermaker continuous churn (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 - Dependence on renal dialysis - Hypothyroidism, unspecified - Allergy status to other antibiotic agents status - Allergy status to other drugs, medicaments and biological substances status - senior care (current) use of anticoagulants - Allergy status to penicillin - Hypertensive chronic kidney disease with stage 5 chronic kidney disease or end stage renal disease 02/03/2018 10:59 [facility] TYPE: Emergency DIAGNOSES: - MARTINEZ/eye pain - Procedure and treatment not carried out due to patient leaving prior to being seen by health care provider 01/23/2018 13:43 [facility] [place] TYPE: Emergency COMPLAINT: - HEAD PAIN/NO INJURY DIAGNOSES: - Personal history of nicotine dependence - Dependence on renal dialysis - Type 2 diabetes mellitus with diabetic chronic kidney disease - senior care (current) use of anticoagulants - Allergy status to other drugs, medicaments and biological substances status - Allergy status to penicillin - Headache - Local infection of the skin and subcutaneous tissue, unspecified - End stage renal disease - Other buttermaker continuous churn (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 - Pruritus, unspecified - Hypertensive chronic kidney disease with stage 5 chronic kidney disease or end stage renal disease 12/31/2017 20:[address] [facility] [place] TYPE: Emergency COMPLAINT: - SOB DIAGNOSES: - Allergy status to other drugs, medicaments and biological substances status - Type 2 diabetes mellitus with diabetic chronic kidney disease - Allergy status to penicillin - Acute bronchospasm - Hypertensive chronic kidney disease with stage 1 through stage 4 chronic kidney disease, or unspecified chronic kidney disease - Gastro-esophageal reflux disease without esophagitis - Other buttermaker continuous churn (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 - End stage renal disease - Personal history of nicotine dependence - Allergy status to other antibiotic agents status - Dependence on renal dialysis INPATIENT VISIT TRACKING (12 MO.) No inpatient visits to display in this time frame [email or web address]
[2018-12-10] MEDS ORDERED: CIPRODEX OTIC7.5 ML AD (19:08)
== END 2018-12-10 21:16 | disposition home or self-care (01) ==
LOC: ED 19:02
DX: T82.838A Hemorrhage due to vascular prosthetic devices, implants and grafts, initial encounter (principal); I12.0 Hypertensive chronic kidney disease with stage 5 chronic kidney disease or end stage renal disease; E11.22 Type 2 diabetes mellitus with diabetic chronic kidney disease; J45.909 Unspecified asthma, uncomplicated; N18.6 End stage renal disease; E03.9 Hypothyroidism, unspecified; Z99.2 Dependence on renal dialysis; Z87.891 Personal history of nicotine dependence; Z88.0 Allergy status to penicillin; Z88.1 Allergy status to other antibiotic agents; Z88.8 Allergy status to other drugs, medicaments and biological substances; Z79.899 Other long term (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
CPT/HCPCS: 99284

== ENCOUNTER 2019-05-20 14:23 | Emergency (ER) | payer MEDICARE, OTHER ==
[~2019-05-20] VITALS: Ht 170.2 cm; Wt 85.7 kg
--- OUTSIDE RECORDS SUMMARY | ~2019-05-20 | XMS | Encounter Summary ---
Demographics + + + | Address | [address] | | | [place] [address] | + + + | Home Phone | | + + + | Preferred Language | Unknown | + + + | Marital Status | Unknown | + + + | Quaker Affiliation | 1076 | + + + | Race | Unknown | + + + | Ethnic Group | Unknown | + + + Author + + + | Author | [facility] | | | and [place] | + + + | Organization | [facility] | | | and [place] | + + + | Address | Unknown | + + + | Phone | Unavailable | + + + Support + + +---------+ + | Name | Relationship | Address | Phone | + + +---------+ + | Shyanne Tariq | ECON | Unknown | | + + +---------+ + | Momo Arenas | ECON | Unknown | | + + +---------+ + Care Team Providers + +------+ + | Care Cognos Report Developer Name | Role | Phone | + +------+ + PCP | Unavailable | + +------+ + Encounter Details +--------+ + + + + | Date | Type | Department | Care Team | Description | +--------+ + + + + | 10/27/ | Hospital | [facility] | Douglas Stevenson MD | End stage renal | | 2014 - | Encounter | [facility] | [address] | disease (HCC); | | | | C[address]LO[address] | [place] [address] | Elevated troponin; | | | | [address] | [phone] | Acute bronchitis; | | 2013 | | [place], [place] | | Anemia of chronic | | | | [address] | | kidney failure; | | | | [phone] | | Chronic obstructive | | | | | | asthma with | | | | | | exacerbation ([facility]); | | | | | | Diabetes mellitus | | | | | | with ESRD (end-stage | | | | | | renal disease) | | | | | | ([facility]); ESRD (end | | | | | | stage renal disease) | | | | | | on dialysis ([facility]); | | | | | | HTN (hypertension) | +--------+ + + + + Social [...] on file | | + + + + + + + | Job Start Date | Occupation | Industry | + + + + | Not on file | Not on file | Not on file | + + + + + + + + | Travel History | Travel Start | Travel End | + + + + + + | No recent travel history available. | + + documented as of this encounter Discharge Summaries Sowmya Shaikh MD - 10/28/2013 10:52 AM PDT Discharge Summaries by Sowmya Shaikh MD at 10/28/13 1052 Author: Sowmya Shaikh MD Service: Hospitalist Author Type: Physician Filed: 10/28/131920 Date of Service: 10/28/131051 Status: Signed Conservation Educator: Sowmya Shaikh MD (Physician) Related Notes: Original Note by Sowmya Shaikh MD (Physician) filed at 10/28/13 1058 Patient ID: Enrique Potter [id number] 48 y.o. 1965 Admit date: 10/27/2013 Discharge date and time: 10/28/13 Admitting Physician: Douglas Stevenson MD Discharge Physician: MD Sana Consults: Primary Discharge Diagnoses: Acute bronchitis [466.0] Chronic obstructive asthma with exacerbation [493.22] End stage renal disease [585.6] HTN (hypertension) [401.9] Elevated troponin [790.6] Anemia of chronic kidney failure [285.21, 585.9] ESRD (end stage renal disease) on dialysis [585.6] Diabetes mellitus with ESRD (end-stage renal disease) [250.40, 585.6] 48-year-old gentleman with past medical history of endstage renal disease, on hemodialysis Saturday, Saturday, Saturday, hypertension, asthma, ex-smoker, who went to outside hospital wit h acute shortness of breath, wheezing, without any fever and chills. The patient was found t o have a low positive troponin of 0.13, hence he was transferred to [facility] with asthma exacerbation and abnormal troponin. Otherwise, the patient denied any belinda st pain, nausea or vomiting, or any other complaint. The patient was started on azithromycin , prednisone 50 mg, and DuoNeb every 4 hours and fluticasone inhaler. When I see the patient the next day, he is feeling remarkably better, denied any shortness of breath, no wheezing, no chest pain, nor any other complaint. He was walking in the hallway without any difficult y and was saturating 96% on room air. The patient's x-ray does not show any acute cardiopulm onary process and lungs were clear to auscultation, no wheeze. Hence, he is being discharged home on tapering doses of steroids, Advair 250/50 mcg 1 puff b.i.d., Singulair 10 mg p.o. d aily, albuterol nebulizer p.r.n. He is already on doxycycline, hence I am going to discontin ue azithromycin. Endstage renal disease. The patient is due for hemodialysis today, and I spoke with Dr. Stephen cedillo. Will get hemodialysis order done prior to discharge. Elevated troponin is likely secondary to endstage renal disease and no clinical evidence of acute coronary syndrome. The patient's repeated troponin here in [facility] is 0.00. I spent more than 35 minutes on discharge. Discharged Condition: stable Significant Diagnostic Studies: Lab Results Component Value Date WBC 7.7 10/28/2013 HGB 13.4 10/28/2013 HCT 40.3 10/28/2013 MCV 97.2 10/28/2013 PLT 209 10/28/2013 GLUCOSE Date Value Range Status 10/28/2013 189* 65 - 99 mg/dL Final Testing performed at [address] [address] BUN Date Value Range Status 10/28/2013 55* 8 - 25 mg/dL Final Testing performed at [address] [address] CREATININE Date Value Range Status 10/28/2013 8.10* 0.70 - 1.30 mg/dL Final Testing performed at [address] [address] BUN/CREAT Date Value Range Status 10/28/2013 7 Final Testing performed at [address] [address] TOTAL PROTEIN Date Value Range Status 10/27/2013 7.8 6.3 - 8.2 g/dL Final Testing performed at [facility];[address] [place] [address];[place] [address] GLOBULIN Date Value Range Status 10/27/2013 4.1 1.3 - 4.9 g/dL Final Testing performed at [facility];[address] [place] [address];[place] [address] TBIL Date Value Range Status 10/27/2013 0.7 0.1 - 1.5 mg/dL Final Testing performed at [facility];[address] [place] [address];[place] [address] ALT Date Value Range Status 10/27/2013 36 10 - 65 U/L Final Testing performed at [facility];[address] [place] [address] AST Date Value Range Status 10/27/2013 23 10 - 45 U/L Final Testing performed at [facility];[address] [place] [address];[place] [address] SODIUM Date Value Range Status 10/28/2013 130* 135 - 143 mmol/L Final Testing performed at [address] [address] POTASSIUM Date Value Range Status 10/28/2013 4.1 3.5 - 4.9 mmol/L Final Testing performed at [address] [address] CHLORIDE Date Value Range Status 10/28/2013 87* 99 - 109 mmol/L Final Testing performed at [address] [address] CO2 Date Value Range Status 10/28/2013 26 23 - 32 mmol/L Final Testing performed at [address] [address] ANION GAP AGAP Date Value Range Status 10/28/2013 21* 5 - 20 mmol/L Final Testing performed at [address] [address] Xr Chest Ap Portable 10/27/2013 ENRIQUE POTTER 1965 48 years XR CHEST 1 VIEW 10/27/2013 1:37 PM INDICATION: Shortn ess of breath COMPARISON: 10/10/12 TECHNIQUE: Chest 1 view, AP view of the chest FINDINGS: The cardiomediastinal contours are normal. There is no pneumothorax or effusion. The denton gs are clear without focal consolidation. Osseous structures are grossly normal. 10/27/2013 1. No acute cardiopulmonary process. and Hospital Course: BP 118/71 | Pulse 97 | Temp 98 F (36.7 C) (Oral) | Resp 18 | Ht 1.702 m (5' 7.01") | Wt 72.2 kg (159 lb 2.8 oz) | BMI 24.92 kg/m2 | SpO2 96% Intake/Output Summary (Last 24 hours) at 10/28/13 1058 Last data filed at 10/28/13 0550 Gross per 24 hour Intake 800 ml Output 100 ml Net 700 ml Discharge Exam: Constitutional: Alert and oriented to person, place, and time. Appears well-developed and w ell-nourished. Cardiovascular: Normal rate, regular rhythm, normal heart sounds and intact distal pulses. Exam reveals no gallop and no friction rub. No murmur heard. Pulmonary/Chest: Effort normal and breath sounds normal. No stridor. No respiratory distre ss. no wheezes. no rales. exhibits no tenderness. Abdominal: Soft. Bowel sounds are normal. exhibits no distension and no mass. There is no t enderness. There is no rebound and no guarding. Musculoskeletal: Normal range of motion.exhibits no tenderness. exhibits no edema. Neurological: Alert and oriented to person, place, and time. Has normal reflexes. display s normal reflexes. No cranial nerve deficit. Exhibits normal muscle tone. Coordination norm al. Skin: Skin is warm and dry. No rash noted. No erythema. No pallor. Psychiatric: Has a normal mood and affect. Behavior is normal. Judgment normal. Disposition: Home or Self Care Patient Instructions: Medication List As of 10/28/2013 10:58 AM START taking these medications * albuterol 1.25 MG/3ML nebulizer solution QTY: 75 mL Refills: 0 Doctor's comments: nebuliser kit Commonly known as: ACCUNEB Take 3 mLs by nebulization every 4 (four) hours as needed for Wheezing. * albuterol 108 (90 BASE) MCG/ACT inhaler QTY: 1 Inhaler Refills: 1 Commonly known as: PROVENTIL HFA;VENTOLIN HFA Inhale 2 puffs into the lungs every 4 (four) hours as needed for Wheezing. fluticasone-salmeterol 250-50 MCG/DOSE QTY: 60 each Refills: 0 Commonly known as: ADVAIR Inhale 1 puff into the lungs 2 (two) times daily. montelukast 10 MG tablet QTY: 30 tablet Refills: 0 Commonly known as: SINGULAIR Take 1 tablet by mouth nightly. predniSONE 20 MG tablet QTY: 20 tablet Refills: 0 Doctor's comments: Take 2 tablets po daily for 2 days then 1 tablet po daily for 3 days th en .5tab po daily for 3 days Commonly known as: DELTASONE Take 1 tablet by mouth daily with breakfast. * Notice: This list has 2 medication(s) that are the same as other medications prescribed for you. Read the directions carefully, and ask your doctor or other care provider to review them with you. CONTINUE taking these medications * albuterol (2.5 MG/3ML) 0.083% nebulizer solution Refills: 0 Commonly known as: PROVENTIL allopurinol 100 MG tablet Refills: 0 Commonly known as: ZYLOPRIM amLODIPine 10 MG tablet Refills: 0 Commonly known as: NORVASC b complex-vitamin c-folic acid 0.8 MG Tabs tablet Refills: 0 carvedilol 3.125 MG tablet Refills: 0 Commonly known as: COREG Cholecalciferol 2000 UNITS Tabs Refills: [address] capsule Refills: 0 Commonly known as: DORYX ergocalciferol 09515 UNITS capsule Refills: 0 Commonly known as: DRISDOL furosemide 20 MG tablet Refills: 0 Commonly known as: LASIX levothyroxine 75 MCG tablet Refills: 0 Commonly known as: SYNTHROID loperamide 2 MG capsule Refills: 0 Commonly known as: IMODIUM omeprazole 40 MG capsule Refills: 0 Commonly known as: PRILOSEC * sevelamer 800 MG tablet Refills: 0 Commonly known as: RENVELA * sevelamer 800 MG tablet Refills: 0 Commonly known as: RENVELA sodium bicarbonate 650 MG tablet Refills: 0 * Notice: This list has 3 medication(s) that are the same as other medications prescribed for you. Read the directions carefully, and ask your doctor or other care provider to review them with you. STOP taking these medications ALPRAZolam 0.5 MG tablet Commonly known as: XANAX citalopram 20 MG tablet Commonly known as: CeleXA cyclobenzaprine 10 MG tablet Commonly known as: FLEXERIL HYDROcodone-acetaminophen 10-325 MG per tablet Commonly known as: NORCO Where to get your medications These are the prescriptions that you need to strip picker. You may get these medications from any pharmacy. albuterol 1.25 MG/3ML nebulizer solution albuterol 108 (90 BASE) MCG/ACT inhaler fluticasone-salmeterol 250-50 MCG/DOSE montelukast 10 MG tablet predniSONE 20 MG tablet Activity: activity as tolerated Diet: renal diet Wound Care: not applicable There are no Patient Instructions on file for this visit. [facility] [address] [place] [address] In 1 week Signed: SOWMYA SHAIKH 10/28/2013 10:58 AM documented in this en counter Medications at Time of Discharge + + [...] a small amount | | 0 | //20 | | | ointment | to affected [...] tablet by mouth | | 0 | /20 | | | (ATARAX) 25 MG | every 6 hours if | | | 12 | | | tablet | needed. May cause | | | | | | | drowsiness. | | | | | + + + +---------+ + + | lidocaine | Apply a small amount | | 0 | //20 | | | (XYLOCAINE JELLY) 2% | [...] + + + +---------+ + + | Elliott Kim | Use as directed by | | [...] + + documented as of this encounter Progress Notes Conversion Transaction, Provider Unknown - 10/28/2013 4:11 PM PDTFormatting of this note m ight be different from the original. Case Management by VANDANA Olivia at 10/28/13 161 Author: VANDANA Olivia Service: (none) Author Type: Maintenance Instructor Filed: 10/28/13 1613 Date of Service: 10/28/13 161 Status: Signed Conservation Educator: VANDANA Olivia (Maintenance Instructor) Gas voucher provided to Pt's Spouse for transport back to [facility], [place]. Sean Willis MD - 10/28/2013 8:09 AM PDTFormatting of this note might be different from the o rosina. Progress Notes by Sean Reid MD at 10/28/13 0809 Author: Sean Reid MD Service: Nephrology Author Type: Physician Filed: 10/28/13 6771 Date of Service: 10/28/13 0809 Status: Signed Conservation Educator: Sean Reid MD (Physician) [facility] Service: NEPHROLOGY Progress Note Enrique Potter 48 y.o. [id number] male [facility] Hospital Day: LOS: 1 day SUBJECTIVE Patient seen and examined. HD Reason for Admission: Chronic obstructive asthma with exacerbation History Obtained From: patient, family CHIEF COMPLAINT: Shortness of Breath HISTORY OF PRESENT ILLNESS 48-year-old male with past medical history of being on hemodialysis for ESRD , hypertension , asthma, ex-smoker , who presented with acute onset shortness of breath that started yester day at 630 p.m. That's why he went to a hospital in [facility] where he was found to have a low positive troponin of 0.13 and also had acute shortness of breath and wheezing and that's why he was transferred to [facility] . Here in our ER, the patient was found to be tachycardic to 110 and also short of breath but repeat troponin was 0. Patient denies any chest pain, nausea, vomiting, diarrhea. He also denies any of cough or fever. He has been having significant wheezing since yesterd ay evening. He was recently treated with antibiotics 1 week back and felt better . Only takes albuterol as inhaler. Never been diagnosed with COPD as such. Ex-smoker, quit 7 years back for that almost 50 pack year smoking history. No alcohol. Live s at home more or less independent. With his SHYANNE Family history noncontributory to present illness. In the ER, patient received ceftriaxone and given nebs now feels slightly better when Saw h im. Patient gets hemodialysis in [facility] hemodialysis unit Saturday und er Dr. Timmons Nephrology consulted for evaluation and management of ESRD AND maintenance hemodialysis ONSET acute moderately severe, Associated with fluid electrolyte acid base imbalances DOING BETTER, NO FEVER TOLERATING HD WELL Past Medical History Diagnosis Date Hyperlipidemia Hypertension [...] diabetic glomerulosclerosis 05/01/2012 Past Surgical History Procedure Date Colonoscopy with egd 05/01/2012 Procedure: COLONOSCOPY W/ EGD; Surgeon: John Singleton MD; Location: [facility]; Se rvice: Gastroenterology; Laterality: N/A; Av fistula placement 05/06/2012 Procedure: AV FISTULA; Surgeon: Oskar Meyer MD; Location: [facility] OR; Service: Vascul ar; Laterality: Left; Left arm possible right Unlisted procedure arthroscopy shoulder rt , ligaments Knee arthroscopy 07/07/2012 Procedure: KNEE - ARTHROSCOPY; Surgeon: Favio Raza MD; Location: [facility] MAIN OR; ervice: Orthopedics; Laterality: Right; After 1530 Catheter removal 07/07/2012 Procedure: DIALYSIS CATHETER REMOVAL; Surgeon: Oskar Meyer MD; Location: [facility] BEDSIDE [place] OCEDURE; Service: General; Laterality: Right; perm cath Dialysis fistula creation 07/07/2012 Procedure: DIALYSIS CATHETER INSERTION; Surgeon: Oskar Meyer MD; Location: [facility] BEDSIDE PROCEDURE; Service: General; Laterality: Left; temporary dialysis catheter Av fistula repair 07/11/2012 Procedure: AV FISTULA GRAFT REPAIR/REVISION; Surgeon: Oskar Meyer MD; Location: [facility] OR; Service: Vascular; Laterality: Left; Superficialization of brachiobasilic fistula and right IJ perm cath insertion Dialysis fistula creation 07/11/2012 Procedure: DIALYSIS CATHETER INSERTION; Surgeon: Oskar Meyer MD; Location: [facility] OR; Service: Vascular; Laterality: Left; removed dialysis catheter from left neck and placed new on in left chest, attempted in right neck but unable to place History Social History Marital Status: Spouse Name: Shyanne Number of Children: N/A Years of Education: N/A Occupational History Not on file. 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 HAS NO BIOLOGICAL KIDS; 2 STEP KIDS. CURRENTLY UNEMPLOYED, ULISES [employer] WORKED AT [employer]. Quit METHAMPHETAMINES PER PATIENT after t he ARF in mar 2012. FATHER HAS COLON CANCER, HEART DISEASE, MOTHER 15 YEARS AGO. NO FH KIDNEY PROBLEMS. Family History Problem Relation Age of Onset Heart disease Mother Heart disease Father Diabetes Father Cancer Father colon cancer Scheduled Medications [COMPLETED] albuterol albuterol 2.5 mg Nebulization Q4H While awake allopurinol 300 mg Oral Daily azithromycin 500 mg Intravenous Q24H carvedilol 3.125 mg Oral BID WC [COMPLETED] cefTRIAXone 1 g Intravenous Once cholecalciferol 2,000 Units Oral Daily citalopram 20 mg Oral Nightly fluticasone 1 puff Inhalation 2 times daily furosemide 20 mg Oral Daily heparin (porcine) 5,000 Units Subcutaneous Q12H [COMPLETED] ipratropium ipratropium-albuterol 3 mL Nebulization Q4H WA levothyroxine 50 mcg Oral Daily omeprazole 40 mg Oral Daily predniSONE 50 mg Oral Daily with breakfast sevelamer 800 mg Oral TID WC sodium bicarbonate 1,300 mg Oral BID vitamin B vxqgnue-T-mosfh acid 1 tablet Oral Daily Continuous Infusions PRN Medications acetaminophen, acetaminophen, ALPRAZolam, cyclobenzaprine, HYDROcodone-acetaminophen, miguel amide, ondansetron, ondansetron, polyethylene glycol, zolpidem Allergy: Allergies Allergen Reactions Lisinopril Other (See Comments) "makes me sweat and knocked me out" Penicillins Other (See Comments) Unknown 10/08/12: Patient tolerated Ceftriaxone during previous admissions. OBJECTIVE Vital Signs: BP 136/67 | Pulse 98 | Temp 97.8 F (36.6 C) (Oral) | Resp 16 | Ht 1.702 m (5' 7.01") | Wt 72.2 kg (159 lb 2.8 oz) | BMI 24.92 kg/m2 | SpO2 97% I&O Detailed Table: I/O last 3 completed shifts: In: 800 [P.O.:800] Out: 100 [Urine:100] Weight change: Hemodynamics Last 24hrs: Examination: General:not in acute distress. HEENT: Head normocephalic. Pupils are normal. Tongue pink. Throat clear. Neck: Supple. JVD not raised. No thyromegaly, no bruit. Chest:occ rhonchi to auscultation. Breasts: Both breasts no masses Heart: S1 and S2 without S3. Abdomen: Soft, bowel sound present, nontender. No bruit over the abdominal aorta and both f emorals. Rectal/Pelvic examination: Deferred. Extremities: No edema feet. Peripheral pulses are normal. No cyanosis or clubbing. Neurologic: Nonfocal. Alert and oriented x3. Skin: no rash or purpura. LYMPH NODES; NOT PALPABLE HD ACCESS: Left upper extremity brachiocephalic fistula with good bruit LABS: IRON: Lab Results Component Value Date IRON 40* 09/10/2012 Lab Results Component Value Date FERRITIN 933* 09/10/2012 LABIRON 35 09/10/2012 CBC: Lab Results Component Value Date WBC 7.7 10/28/2013 RBC 4.14* 10/28/2013 HGB 13.4 10/28/2013 HCT 40.3 10/28/2013 MCV 97.2 10/28/2013 MCH 32.4 10/28/2013 MCHC 33.3 10/28/2013 RDW 49.0 10/28/2013 PLT 209 10/28/2013 MPV 7.7 10/28/2013 DIFFTYPE AUTOMATED 10/28/2013 CMP: Lab Results Component Value Date NA 130* 10/28/2013 K 4.1 10/28/2013 CL 87* 10/28/2013 CO2 26 10/28/2013 ANIONGAP 21* 10/28/2013 GLUF 189* 10/28/2013 BUN 55* 10/28/2013 CREATININE 8.10* 10/28/2013 BCR 7 10/28/2013 CA 9.7 10/28/2013 CA 6.1* 04/02/2012 PROT 7.8 10/27/2013 ALB 3.7 10/27/2013 GLOB 4.1 10/27/2013 BILITOT 0.7 10/27/2013 ALP 96 10/27/2013 AST 23 10/27/2013 ALT 36 10/27/2013 EGFR 8* 10/28/2013 Magnesium: Lab Results Component Value Date MG 2.7* 10/28/2013 Phosphorus: Lab Results Component Value Date PHOS 4.0 10/28/2013 PT/INR: Lab Results Component Value Date INR 0.9 10/27/2013 Troponin: Lab Results Component Value Date TROPONINI <0.02 10/10/2012 Lab Results Component Value Date PTHINTACT 255* 04/02/2012 [id number] <12* 04/02/2012 Lab Results Component Value Date TSH 8.41* 09/11/2012 TSH 7.30* 07/06/2012 TSH 16.60* 04/03/2012 Lab Results Component Value Date URICACID 8.2 04/02/2012 Lab Results Component Value Date HGBA1C UNABLE TO CALCULATE 09/11/2012 HGBA1C 6.0 05/14/2012 HGBA1C 5.4 04/03/2012 IMAGING Xr Chest Ap Portable 10/27/2013 ENRIQUE TARIQ 1965 48 years XR CHEST 1 VIEW 10/27/2013 1:37 PM INDICATION: Shortn ess of breath COMPARISON: 10/10/12 TECHNIQUE: Chest 1 view, AP view of the chest FINDINGS: The cardiomediastinal contours are normal. There is no pneumothorax or effusion. The denton gs are clear without focal consolidation. Osseous structures are grossly normal. 10/27/2013 1. No acute cardiopulmonary process. LEM LIST Principal Problem: *Chronic obstructive asthma with exacerbation Active Problems: Hypothyroidism HTN (hypertension) ESRD (end stage renal disease) on dialysis Anemia of chronic kidney failure Gout PUD (peptic ulcer disease) SOB (shortness of breath) ASSESSMENT & PLAN TOLERATING HD WELL ESRD: ON HD Secondary to diabetes and hypertensive nephrosclerosis Hemodialysis at [facility] hemodialysis unit under Dr. Timmons Saturday Using left upper arm AV fistula Is and Os DAILY LABS Lab Results Component Value Date BUN 55* 10/28/2013 BUN 33* 10/27/2013 BUN 28* 12/15/2012 CREATININE 8.10* 10/28/2013 CREATININE 7.41* 10/27/2013 CREATININE 5.3* 12/15/2012 EGFR 8* 10/28/2013 EGFR 8* 10/27/2013 EGFR 12.0 12/15/2012 CHRONIC LONG STANDING HYPERTENSION EF between 40 - 45 %. BP is reasonably controlled with current medications and dietary salt restriction. Anemia of chronic renal disease Iron work up shows Adequate iron stores. I would monitor Hb to keep it around 10 (using NAAYA and Fe as needed). Lab Results Component Value Date HGB 13.4 10/28/2013 HGB 13.8 10/27/2013 HGB 11.3* 12/15/2012 FERRITIN 933* 09/10/2012 FERRITIN 245.0 04/28/2012 FERRITIN 139 04/02/2012 LABIRON 35 09/10/2012 LABIRON 20 04/28/2012 LABIRON 38 04/02/2012 CHRONIC LONG STANDING DIABETES MELLITUS TYPE II STABLE ACUTE BRONCHITIS PER HOSPITALIST D/W DR SHAIKH, HE IS DISCHARGING HIM AFTER HD TODAY Time spend over 35 minutes of time spent evaluating the patient, reviewing the data, formu lating a plan and discussion with patient and hospitalist team, more than half of the time s pent in counseling and coordination of care. SEAN REID MD 10/28/2013 Chela King RPH - 10/27/2013 5:15 PM PDT Progress Notes by Chela Varela RPH at 10/27/131714 Author: Chela Varela RPH Service: (none) Author Type: Pharmacist Filed: 10/27/131714 Date of Service: 10/27/131714 Status: Signed Conservation Educator: Chela Varela RPH (Pharmacist) Clinical Pharmacy Note - Renal Dose Adjustment Enrique Potter 48 y.o. male Ht Readings from Last 1 Encounters: 10/27/13 1.702 m (5' 7.01") Wt Readings from Last 1 Encounters: 10/27/13 72 kg (158 lb 11.7 oz) CREATININE Date Value Range Status 10/27/2013 7.41* 0.70 - 1.30 mg/dL Final Testing performed at [facility];[address] [place] [address];[place] [address] ESRD on HD Pharmacy to renally adjust medications per Dr. Stevenson Plan: No current medications require dose adjustment for HD at this time. Pharmacy will continue to follow and adjust as appropriate. Pharmacist: Chela Varela 10/27/2013 5:14 PM onversio n Transaction, Provider Unknown - 10/27/2013 4:24 PM PDTFormatting of this note might be di fferent from the original. Case Management by VANDANA Wu at 10/27/13 162 Author: VANDANA Wu Service: (none) Author Type: Maintenance Instructor Filed: 10/27/131625 Date of Service: 10/27/131623 Status: Signed Conservation Educator: VANDANA Wu (Maintenance Instructor) 10/27/131620 Discharge Planning Evaluation Admitting Diagnosis Dyspnea Readmission Yes-within 14 days Living Arrangements Spouse/significant other;Family members Support Systems Spouse/significant other;Family members;Other (Comment) ([facility]) Type of Residence Private residence House type House-1 story Steps to enter 2 Independent with ADL's Yes Independent with Mobility Yes Mental Status Oriented Prior functional status Indpendent, no DME Anticipated Discharge Plan Post Acute Care Needs None at this time Plan communicated to patient/family Yes Resources Transportation issues No Anticipated Disposition Facility Type (Home) Met with: Pt and discussed discharge planning, Pt is a 48 y.o., male who denied any diffic ulty walking. Patient's PCP is: [facility] Patient's insurance: Medicare / Medicaid Coverage concerns: None reported Medication coverage/concerns: None reported Community resources utilized / needed: Pt goes to Dialysis in [place] and gets there by [employer] transportation Assistance in transportation: [employer] / Family Identification of any specific education / training: TBD Barriers to Discharge / Alternative housing needed: Anticipated DCP: Home. Pt thought the plan was to stay overnight, get dialysis in the am, and then dc home. Pt's plans to arrive and stay the night at [facility]. [facility] docume nted in this encounter Plan of Treatment Not on filedocumented as of this encounter Procedures + +--------+ + + + | Procedure Name | Priori | Date/Time | Associated Diagnosis | Comments | | | ty | | | | + +--------+ + + + | EXTERNAL LAB: CBC | Routin | 10/28/2013 | | Results for this | | | e | 3:51 AM | | procedure are in the | | | | PDT | | results section. | + +--------+ + + + | PHOSPHORUS | Routin | 10/28/2013 | | Results for this | | | e | 3:51 AM | | procedure are in the | | | | PDT | | results section. | + +--------+ + + + | MAGNESIUM | Routin | 10/28/2013 | | Results for this | | | e | 3:51 AM | | procedure are in the | | | | PDT | | results section. | + +--------+ + + + | BASIC METABOLIC | Routin | 10/28/2013 | | Results for this | | PANEL | e | 3:51 AM | | procedure are in the | | | | PDT | | results section. | + +--------+ + + + | XR CHEST 1 VIEW | Routin | 10/27/2013 | | Results for this | | | e | 1:37 PM | | procedure are in the | | | | PDT | | results section. | + +--------+ + + + | HISTORICAL LAB PANEL | Routin | 10/27/2013 | | Results for this | | RESULT | e | 12:59 PM | | procedure are in the | | | | PDT | | results section. | + +--------+ + + + | B TYPE NATRIURETIC | Routin | 10/27/2013 | | Results for this | | PEPTIDE | e | 12:59 PM | | procedure are in the | | | | PDT | | results section. | + +--------+ + + + documented in this encounter Results External Lab: CBC (10/28/2013 3:51 AM PDT) + + + + + + | Component | Value | Ref Range | Performed | Pathologist | | | | | At | Signature | + + + + + + | WBC | 7.7Comment: Testing | 3.8 - 11.0 K/uL | EXTERNAL | | | | performed at [facility], [address] | | LAB | | | | [address], | | | | | | [place] [address] | | | | + + + + + + | RED CELL | 4.14 (L)Comment: Testing | 4.20 - 5.70 | EXTERNAL | | | COUNT | performed at [facility], [address] | [address]L | LAB | | | | [address], | | | | | | [place] [address] | | | | + + + + + + | Hgb | 13.4Comment: Testing | 13.2 - 17.0 | EXTERNAL | | | | performed at [facility], [address] | g/dL | LAB | | | | [address], | | | | | | [place] [address] | | | | + + + + + + | Hematocrit, | 40.3Comment: Testing | 39.0 - 50.0 % | EXTERNAL | | | POC | performed at [facility], [address] | | LAB | | | | [address], | | | | | | [place] [address] | | | | + + + + + + | MCV | 97.2Comment: Testing | 80.0 - 100.0 fl | EXTERNAL | | | | performed at [facility], [address] | | LAB | | | | [address], | | | | | | [place] [address] | | | | + + + + + + | MCH | 32.4Comment: Testing | 27.0 - 34.0 pg | EXTERNAL | | | | performed at [facility], [address] | | LAB | | | | [address], | | | | | | [place] [address] | | | | + + + + + + | MCHC | 33.3Comment: Testing | 32.0 - 35.5 | EXTERNAL | | | | performed at [facility], [address] | g/dL | LAB | | | | [address], | | | | | | [place] [address] | | | | + + + + + + | RDW-CV | 49.0Comment: Testing | 37 - 53 fl | EXTERNAL | | | | performed at [facility], [address] | | LAB | | | | [address], | | | | | | [place] [address] | | | | + + + + + + | Platelet | 209Comment: Testing | 150 - 400 K/uL | EXTERNAL | | | Count | performed at [facility], [address] | | LAB | | | Plasma | [address], | | | | | | [place] [address] | | | | + + + + + + | MPV | 7.7Comment: Testing | fl | EXTERNAL | | | | performed at [facility], [address] | | LAB | | | | [address], | | | | | | [place] [address] | | | | + + + + + + | Differentia | AUTOMATEDComment: SLIDE | | EXTERNAL | | | l Type | SCANNED, AGREES WITH | | LAB | | | | AUTOMATED | | | | | | RESULTS.Testing | | | | | | performed at [facility], [address] | | | | | | [address], | | | | | | [place] [address] | | | | + + + + + + | % Segmented | 88.3Comment: Testing | % | EXTERNAL | | | | performed at [facility], [address] | | LAB | | | Neutrophils | [address], | | | | | | [place], [place] [address] | | | | + + + + + + | % | 9.7Comment: Testing | % | EXTERNAL | | | Lymphocytes | performed at [facility], [address] | | LAB | | | | [address], | | | | | | [place], [place] [address] | | | | + + + + + + | % Monocytes | 1.8Comment: Testing | % | EXTERNAL | | | | performed at [facility], [address] | | LAB | | | | [address], | | | | | | [place] [address] | | | | + + + + + + | % | 0.1Comment: Testing | % | EXTERNAL | | | Eosinophils | performed at [facility], [address] | | LAB | | | | [address], | | | | | | [place] [address] | | | | + + + + + + | % Basophils | 0.1Comment: Testing | % | EXTERNAL | | | | performed at [facility], [address] | | LAB | | | | [address], | | | | | | [place] [address] | | | | + + + + + + | Absolute | 6.8Comment: Testing | 1.9 - 7.4 K/uL | EXTERNAL | | | Segmented | performed at [facility], [address] | | LAB | | | Neutrophils | [address], | | | | | | [place] [address] | | | | + + + + + + | Absolute | 0.7 (L)Comment: Testing | 1.0 - 3.9 K/uL | EXTERNAL | | | Lymphocytes | performed at [facility], [address] | | LAB | | | | [address], | | | | | | [place] [address] | | | | + + + + + + | Absolute | 0.1Comment: Testing | 0 - 0.8 K/uL | EXTERNAL | | | Monocytes | performed at [facility], [address] | | LAB | | | | [address], | | | | | | [place] [address] | | | | + + + + + + | Absolute | 0.0Comment: Testing | 0 - 0.5 K/uL | EXTERNAL | | | Eosinophils | performed at [facility], [address] | | LAB | | | | [address], | | | | | | [place] [address] | | | | + + + + + + | Absolute | 0.0Comment: Testing | 0 - 0.1 K/uL | EXTERNAL | | | Basophils | performed at [facility], [address] | | LAB | | | | [address], | | | | | | [place] [address] | | | | + + + + + + + + | Specimen | + + | Blood specimen | | (specimen) | + + + +---------+ + + | Performing | Address | City/State/Zipcode | Phone Number | | Organization | | | | + +---------+ + + | EXTERNAL LAB | | | | + +---------+ + + Phosphorus (10/28/2013 3:51 AM PDT) + + + + + + | Component | Value | Ref Range | Performed | Pathologist | | | | | At | Signature | + + + + + + | PHOSPHORUS | 4.0Comment: Testing | 2.3 - 4.8 mg/dL | EXTERNAL | | | | performed at [facility], [address] | | LAB | | | | [address], | | | | | | [place] [address] | | | | + + + + + + + + | Specimen | + + | Blood specimen | | (specimen) | + + + +---------+ + + | Performing | Address | City/State/Zipcode | Phone Number | | Organization | | | | + +---------+ + + | EXTERNAL LAB | | | | + +---------+ + + Magnesium (10/28/2013 3:51 AM PDT) + + + + + + | Component | Value | Ref Range | Performed | Pathologist | | | | | At | Signature | + + + + + + | Magnesium | 2.7 (H)Comment: Testing | 1.7 - 2.4 mg/dL | EXTERNAL | | | | performed at [facility], [address] | | LAB | | | | [address], | | | | | | [place] [address] | | | | + + + + + + + + | Specimen | + + | Blood specimen | | (specimen) | + + + +---------+ + + | Performing | Address | City/State/Zipcode | Phone Number | | Organization | | | | + +---------+ + + | EXTERNAL LAB | | | | + +---------+ + + Basic Metabolic Panel (10/28/2013 3:51 AM PDT) + + + + + + | Component | Value | Ref Range | Performed | Pathologist | | | | | At | Signature | + + + + + + | Na | 130 (L)Comment: Testing | 135 - 143 | EXTERNAL | | | | performed at [facility], [address] | mmol/L | LAB | | | | [address], | | | | | | [place] [address] | | | | + + + + + + | K | 4.1Comment: Testing | 3.5 - 4.9 | EXTERNAL | | | | performed at [facility], [address] | mmol/L | LAB | | | | [address], | | | | | | [place] [address] | | | | + + + + + + | Cl | 87 (L)Comment: Testing | 99 - 109 mmol/L | EXTERNAL | | | | performed at [facility], [address] | | LAB | | | | [address], | | | | | | [place] [address] | | | | + + + + + + | CO2 | 26Comment: Testing | 23 - 32 mmol/L | EXTERNAL | | | | performed at [facility], [address] | | LAB | | | | [address], | | | | | | [place] [address] | | | | + + + + + + | Anion Gap | 21 (H)Comment: Testing | 5 - 20 mmol/L | EXTERNAL | | | | performed at [facility], [address] | | LAB | | | | [address], | | | | | | [place] [address] | | | | + + + + + + | Glucose, | 189 (H)Comment: Testing | 65 - 99 mg/dL | EXTERNAL | | | Fasting | performed at [facility], [address] | | LAB | | | | [address], | | | | | | [place] [address] | | | | + + + + + + | BUN | 55 (H)Comment: Testing | 8 - 25 mg/dL | EXTERNAL | | | | performed at [facility], [address] | | LAB | | | | [address], | | | | | | [place] [address] | | | | + + + + + + | Creatinine | 8.10 (H)Comment: Testing | 0.70 - 1.30 | EXTERNAL | | | | performed at [facility], [address] | mg/dL | LAB | | | | [address], | | | | | | [place] [address] | | | | + + + + + + | BUN/Creatin | 7Comment: Testing | | EXTERNAL | | | ine Ratio | performed at [facility], [address] | | LAB | | | | [address], | | | | | | [place] [address] | | | | + + + + + + | Calcium | 9.7Comment: Testing | 8.5 - 10.2 | EXTERNAL | | | | performed at [facility], [address] | mg/dL | LAB | | | | [address], | | | | | | [place] [address] | | | | + + + + + + | Estimated | 8 (L)Comment: GFR <60: | mL/min/1.73m2 | EXTERNAL | | | GFR | CHRONIC KIDNEY DISEASE, | | LAB | | | | IF FOUND OVER A 3 MONTH | | | | | | PERIOD.GFR <15: KIDNEY | | | | | | FAILURE.FOR | | | | | | AMERICANS, MULTIPLY THE | | | | | | CALCULATED GFR BY | | | | | | 1.210.Testing performed | | | | | | at [facility], [address] | | | | | | [address], | | | | | | [place] [address] | | | | + + + + + + + + | Specimen | + + | Blood specimen | | (specimen) | + + + +---------+ + + | Performing | Address | City/State/Zipcode | Phone Number | | Organization | | | | + +---------+ + + | EXTERNAL LAB | | | | + +---------+ + + XR Chest 1 Vw (10/27/2013 1:37 PM PDT) + + | Specimen | + + | | + + + + + | Impressions | Performed At | + + + | 1. No acute cardiopulmonary process. | | + + + + + + | Narrative | Performed At | + + + | [facility] POT[facility] 1965 48 years XR CHEST 1 VIEW 10/27/2013 1:37 PM | | | INDICATION: Shortness of breath COMPARISON: 10/10/12 | | | TECHNIQUE: Chest 1 view, AP view of the chest FINDINGS: The | | | cardiomediastinal contours are normal. There is no pneumothorax or | | | effusion. The lungs are clear without focal consolidation. Osseous | | | structures are grossly normal. | | + + + + + | Procedure Note | + + | Néstor, Rad Conversion - 02/06/2019 10:59 AM PDT ENRIQUE JIM yearsXR CHEST 1 | | VIEW10/27/2013 1:37 PM INDICATION: Shortness of breath COMPARISON: 10/10/12 TECHNIQUE: | | Chest 1 view, AP view of the chest FINDINGS: The cardiomediastinal contours are normal. | | There is no pneumothorax or effusion. The lungs are clear without focal | | consolidation. Osseous structures are grossly normal. IMPRESSION: 1. No acute | | cardiopulmonary process. | | PM | | | |COMPARISON: 10/10/12 | | | |TECHNIQUE: Chest 1 view, AP view of the chest | | | |FINDINGS: The cardiomediastinal contours are normal. There is no pneumothorax or effusion . The lungs are clear without focal consolidation. Osseous structures are grossly normal. | | | |IMPRESSION: | |1. No acute cardiopulmonary process. | | | | | + + HISTORICAL LAB PANEL RESULT (10/27/2013 12:59 PM PDT) + + + + + -+ | Component | Value | Ref Range | Performed | Pathologist | | | | | At | Signature | + + + + + -+ | WBC | 8.5Comment: Testing | 3.8 - 11.0 K/uL | EXTERNAL | | | | performed at [facility];[address] | | LAB | | | | [address];[place] | | | | | | [address] | | | | + + + + + -+ | RED CELL | 4.23Comment: Testing | 4.20 - 5.70 | EXTERNAL | | | COUNT | performed at [facility];[address] | M/uL | LAB | | | | [address];[place] | | | | | | [address] | | | | + + + + + -+ | Hgb | 13.8Comment: Testing | 13.2 - 17.0 | EXTERNAL | | | | performed at [facility];[address] | g/dL | LAB | | | | [address];[place] | | | | | | [address] | | | | + + + + + -+ | Hematocrit, | 41.1Comment: Testing | 39.0 - 50.0 % | EXTERNAL | | | POC | performed at [facility];[address] | | LAB | | | | [address];[place] | | | | | | [address] | | | | + + + + + -+ | MCV | 97.2Comment: Testing | 80.0 - 100.0 fl | EXTERNAL | | | | performed at [facility];[address] | | LAB | | | | [address];[place] | | | | | | [address] | | | | + + + + + -+ | MCH | 32.5Comment: Testing | 27.0 - 34.0 pg | EXTERNAL | | | | performed at [facility];[address] | | LAB | | | | [address];[place] | | | | | | [address] | | | | + + + + + -+ | MCHC | 33.5Comment: Testing | 32.0 - 35.5 | EXTERNAL | | | | performed at [facility];[address] | g/dL | LAB | | | | [address];[place] | | | | | | [address] | | | | + + + + + -+ | RDW-CV | 49.4Comment: Testing | 37 - 53 fl | EXTERNAL | | | | performed at [facility];[address] | | LAB | | | | [address];[place] | | | | | | [address] | | | | + + + + + -+ | Platelet | 235Comment: Testing | 150 - 400 K/uL | EXTERNAL | | | Count | performed at [facility];[address] | | LAB | | | Plasma | [address];[place] | | | | | | [address] | | | | + + + + + -+ | MPV | 7.3Comment: Testing | fl | EXTERNAL | | | | performed at [facility];[address] | | LAB | | | | [address];[place] | | | | | | [address] | | | | + + + + + -+ | Differentia | AUTOMATEDComment: | | EXTERNAL | | | l Type | Testing performed at | | LAB | | | | [facility];[address];[place] [address] | | | | + + + + + -+ | % Segmented | 90.4Comment: Testing | % | EXTERNAL | | | | performed at [facility];[address] | | LAB | | | Neutrophils | [address];[place] | | | | | | [address] | | | | + + + + + -+ | % | 6.9Comment: Testing | % | EXTERNAL | | | Lymphocytes | performed at [facility];[address] | | LAB | | | | [address];[place] | | | | | | [address] | | | | + + + + + -+ | % Monocytes | 1.1Comment: Testing | % | EXTERNAL | | | | performed at [facility];[address] | | LAB | | | | [address];[place] | | | | | | [address] | | | | + + + + + -+ | % | 1.5Comment: Testing | % | EXTERNAL | | | Eosinophils | performed at [facility];[address] | | LAB | | | | [address];[place] | | | | | | [address] | | | | + + + + + -+ | % Basophils | 0.1Comment: Testing | % | EXTERNAL | | | | performed at [facility];[address] | | LAB | | | | [address];[place] | | | | | | [address] | | | | + + + + + -+ | Absolute | 7.7 (H)Comment: Testing | 1.9 - 7.4 K/uL | EXTERNAL | | | Segmented | performed at [facility];[address] | | LAB | | | Neutrophils | [address];[place] | | | | | | [address] | | | | + + + + + -+ | Absolute | 0.6 (L)Comment: Testing | 1.0 - 3.9 K/uL | EXTERNAL | | | Lymphocytes | performed at [facility];[address] | | LAB | | | | [address];[place] | | | | | | [address] | | | | + + + + + -+ | Absolute | 0.1Comment: Testing | 0 - 0.8 K/uL | EXTERNAL | | | Monocytes | performed at [facility];[address] | | LAB | | | | [address];[place] | | | | | | [address] | | | | + + + + + -+ | Absolute | 0.1Comment: Testing | 0 - 0.5 K/uL | EXTERNAL | | | Eosinophils | performed at [facility];[address] | | LAB | | | | [address];[place] | | | | | | [address] | | | | + + + + + -+ | Absolute | 0.0Comment: Testing | 0 - 0.1 K/uL | EXTERNAL | | | Basophils | performed at [facility];[address] | | LAB | | | | [address];[place] | | | | | | [address] | | | | + + + + + -+ | Platelet | ADEQUATEComment: Testing | | EXTERNAL | | | Estimate | performed at [facility];[address] | | LAB | | | | [address];[place] | | | | | | [address] | | | | + + + + + -+ | Differentia | SLIDE SCANNED, AGREES | | EXTERNAL | | | l Comments | WITH AUTOMATED | | LAB | | | | RESULTS.Comment: Testing | | | | | | performed at [facility];[address] | | | | | | [address];[place] | | | | | | [address] | | | | + + + + + -+ | RBC | RBC AND PLT MORPHOLOGY | | EXTERNAL | | | Morphology | APPEAR NORMALComment: | | LAB | | | | Testing performed at | | | | | | [facility];[address];[place] [address] | | | | + + + + + -+ | Na | 134 (L)Comment: Testing | 135 - 143 | EXTERNAL | | | | performed at [facility];[address] | mmol/L | LAB | | | | [address];[place] | | | | | | [address] | | | | + + + + + -+ | K | 3.8Comment: Testing | 3.5 - 4.9 | EXTERNAL | | | | performed at [facility];[address] | mmol/L | LAB | | | | [address];[place] | | | | | | [address] | | | | + + + + + -+ | Cl | 91 (L)Comment: Testing | 99 - 109 mmol/L | EXTERNAL | | | | performed at [facility];[address] | | LAB | | | | [address];[place] | | | | | | [address] | | | | + + + + + -+ | CO2 | 30Comment: Testing | 23 - 32 mmol/L | EXTERNAL | | | | performed at [facility];[address] | | LAB | | | | [address];[place] | | | | | | [address] | | | | + + + + + -+ | Anion Gap | 17Comment: Testing | 5 - 20 mmol/L | EXTERNAL | | | | performed at [facility];[address] | | LAB | | | | [address];[place] | | | | | | [address] | | | | + + + + + -+ | Glucose, | 146 (H)Comment: Testing | 65 - 99 mg/dL | EXTERNAL | | | Fasting | performed at [facility];[address] | | LAB | | | | [address];[place] | | | | | | [address] | | | | + + + + + -+ | BUN | 33 (H)Comment: Testing | 8 - 25 mg/dL | EXTERNAL | | | | performed at [facility];[address] | | LAB | | | | [address];[place] | | | | | | [address] | | | | + + + + + -+ | Creatinine | 7.41 (H)Comment: Testing | 0.70 - 1.30 | EXTERNAL | | | | performed at [facility];[address] | mg/dL | LAB | | | | [address];[place] | | | | | | [address] | | | | + + + + + -+ | BUN/Creatin | 4Comment: Testing | | EXTERNAL | | | ine Ratio | performed at [facility];[address] | | LAB | | | | [address];[place] | | | | | | [address] | | | | + + + + + -+ | Calcium | 8.9Comment: Testing | 8.5 - 10.2 | EXTERNAL | | | | performed at [facility];[address] | mg/dL | LAB | | | | [address];[place] | | | | | | [address] | | | | + + + + + -+ | Protein, | 7.8Comment: Testing | 6.3 - 8.2 g/dL | EXTERNAL | | | Total | performed at [facility];[address] | | LAB | | | | [address];[place] | | | | | | [address] | | | | + + + + + -+ | Albumin | 3.7Comment: Testing | 3.6 - 5.0 g/dL | EXTERNAL | | | | performed at [facility];[address] | | LAB | | | | [address];[place] | | | | | | [address] | | | | + + + + + -+ | Globulin | 4.1Comment: Testing | 1.3 - 4.9 g/dL | EXTERNAL | | | | performed at [facility];[address] | | LAB | | | | [address];[place] | | | | | | [address] | | | | + + + + + -+ | A/G Ratio | 0.9 (L)Comment: Testing | 1.0 - 2.4 | EXTERNAL | | | | performed at [facility];[address] | | LAB | | | | [address];[place] | | | | | | [address] | | | | + + + + + -+ | Bilirubin | 0.7Comment: Testing | 0.1 - 1.5 mg/dL | EXTERNAL | | | Total | performed at [facility];[address] | | LAB | | | | [address];[place] | | | | | | [address] | | | | + + + + + -+ | ALP, | 96Comment: Testing | 35 - 115 U/L | EXTERNAL | | | External | performed at [facility];[address] | | LAB | | | | [address];[place] | | | | | | [address] | | | | + + + + + -+ | AST | 23Comment: Testing | 10 - 45 U/L | EXTERNAL | | | | performed at [facility];[address] | | LAB | | | | [address];[place] | | | | | | [address] | | | | + + + + + -+ | ALT | 36Comment: Testing | 10 - 65 U/L | EXTERNAL | | | | performed at [facility];[address] | | LAB | | | | [address];[place] | | | | | | [address] | | | | + + + + + -+ | Estimated | 8 (L)Comment: GFR <60: | mL/min/1.73m2 | EXTERNAL | | | GFR | CHRONIC KIDNEY DISEASE, | | LAB | | | | IF FOUND OVER A 3 MONTH | | | | | | PERIOD.GFR <15: KIDNEY | | | | | | FAILURE.FOR | | | | | | AMERICANS, MULTIPLY THE | | | | | | CALCULATED GFR BY | | | | | | 1.210.Testing performed | | | | | | at [facility];[address] | | | [address];[place] [address] | | | | + + + + + -+ | CK, Total | 105Comment: Testing | 55 - 400 U/L | EXTERNAL | | | | performed at [facility] [place];[address] | | [address] | | | | [address];[place] | | | | | | [address] | | | | + + + + + -+ | INR | 0.9Comment: REFERENCE | | EXTERNAL | | | | RANGE:0.9 - 1.2 | | LAB | | | | NON-ANTICOAGULATED2.0 | | | | | | - 3.0 ALL OTHER | | | | | | THERAPEUTIC | | | | | | INDICATIONS2.5 - 3.5 | | | | | | MECHANICAL HEART VALVES, | | | | | | RECURRENT OR SYSTEMIC | | | | | | EMBOLISMTesting | | | | | | performed at [facility] [place];[address] | [address];[place] | | | | | | [address] | | | | + + + + + -+ | aPTT, | 24Comment: Testing | 23 - 32 seconds | EXTERNAL | | | Patient | performed at [facility] [place];[address] | | [address] | | | | [address];[place] | | | | | | [address] | | | | + + + + + -+ | CK-MB | 4.2 (H)Comment: Testing | 0.5 - 3.6 ng/mL | EXTERNAL | | | | performed at [facility] [place];[address] | | [address] | | | | [address];[place] | | | | | | [address] | | | | + + + + + -+ | CK-MB Index | 4.0Comment: CK INDEX | | EXTERNAL | | | | INTERPRETATION: | | LAB | | | | MMB ng/mL | | | | | | | | | | | |CK INDEX INTERPRETATION: | | | | | | MMB ng/mL | | | | | | | | | | + + + + + -+ + + | Specimen | + + | | + + + +---------+ + + | Performing | Address | City/State/Zipcode | Phone Number | | Organization | | | | + +---------+ + + | EXTERNAL LAB | | | | + +---------+ + + B Type Natriuretic Peptide (10/27/2013 12:59 PM PDT) + + + + + + | Component | Value | Ref Range | Performed | Pathologist | | | | | At | Signature | + + + + + + | BNP | 26.2Comment: Testing | 0 - 100 pg/mL | EXTERNAL | | | | performed at [facility] [place];[address] | | LAB | | | | [address];[place] | | | | | | [address] | | | | + + + [...] + | Diagnosis | + + | End stage renal disease (HCC) End stage renal disease | + + | Elevated troponin Other abnormal blood chemistry | + + | Acute bronchitis | + + | Anemia of chronic kidney failure Anemia in chronic kidney disease | + + | Chronic obstructive asthma with exacerbation (HCC) Chronic obstructive asthma with | | exacerbation | + + | 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
--- OUTSIDE RECORDS SUMMARY | ~2019-05-20 | XMS | Clinical Summary ---
Demographics + + + | Address | [address] | | | [place] [address] | + + + | Home Phone | | + + + | Preferred Language | Unknown | + + + | Marital Status | Unknown | + + + | Uatsdin Affiliation | 1076 | + + + | Race | Unknown | + + + | Ethnic Group | Unknown | + + + Author + + + | Author | Merged With [facility] | | | and [place] | + + + | Organization | Merged With [facility] | | | [...] Team Providers + +------+ + | Care Material Requirements Worker Name | Role | Phone | + +------+ + | Andry Deng DO | PCP | | + +------+ + Allergies + + + + + + | Active Allergy | Reactions | Severity | Noted | Comments | | | | | Date | | + + + + + + | Azithromycin | Rash | Medium | 04/28/20 | Unknown | | | | | 16 | | + + + + + + | Latex | Rash | Low | 02/24/20 | Skin "melted" off | | | | | 17 | | + + + + + + | Lisinopril | Other (See Comments) | Medium | 04/30/20 | "makes me sweat | | | | | 12 | and knocked me out" | + + + + + + | Penicillins | Other (See | Medium | 06/06/20 | Rash on fingers | | | Comments), Rash | | 10 | and hands Unknown- | | | | | | not sure | | | | | | 10/08/12: Patient | | | | | | tolerated | | | | | | Ceftriaxone during | | | | | | previous admissions. | | | | | | | + + + + + + Medications + + + +---------+------+------+-------+ | Medication | Sig | Dispensed | Refills | Star | End | Statu | | | | | | t | Date | s | | | | | | Date | | | + + + +---------+------+------+-------+ | albuterol (PROAIR | 2 puffs inhaled | | 0 | 09/1 | | Activ | | HFA) 90 mcg/puff | every 4 hours as | | | 4/20 | | e | | inhaler | needed for shortness | | | 12 | | | | | of breath | | | | | | + + + +---------+------+------+-------+ | Blood Glucose | Use as directed by | | 0 | 09/1 | | Activ | | Monitoring Suppl | physician | | | 4/20 | | e | | (CONTOUR BLOOD | | | | 12 | | | | GLUCOSE SYSTEM) GORGE | | | | | | | + + + +---------+------+------+-------+ | ergocalciferol | Take 50,000 Units by | | 0 | 09/1 | | Activ | | (VITAMIN D-2) 50,000 | mouth Once a week. | | | 4/20 | | e | | units capsule | | | | 12 | | | + + + +---------+------+------+-------+ | hydrophilic | Apply a small amount | | 0 | 09/1 | | Activ | | ointment | to affected areas | | | 4/20 | | e | | | three times a day to | | | 12 | | | | | feet as directed. | | | | | | | | Apply to ears as | | | | | | | | directed. | | | | | | + + + +---------+------+------+-------+ | | Inhale 1 puff by | | 0 | 09/1 | | Activ | | fluticasone-salmeter | mouth twice a day | | | 4/20 | | e | | ol (ADVAIR DISKUS) | for asthma; use | | | 12 | | | | 100-50 mcg/puff | morning and evening | | | | | | | diskus inhaler | every day | | | | | | + + + +---------+------+------+-------+ | | Use 1 pad to wipe | | 0 | 091 | | Activ | | Benzocaine-Isopropyl | area as directed | | | 10/11 | | e | | Alcohol (ALCOHOL | | | | 12 | | | | SWABS WITH | | | | | | | | BENZOCAINE) 6-70 % | | | | | | | | PADS | | | | | | | + + + +---------+------+------+-------+ | allopurinol | 1 tablet by mouth | | 0 | 02/22 | | Activ | | (ZYLOPRIM) 100 mg | daily for gout. | | | 10/11 | | e | | tablet | Increase to 2 | | | 12 | | | | | tablets daily after | | | | | | | | one week. Increase | | | | | | | | to 3 tablets daily | | | | | | | | after one more week. | | | | | | + + + +---------+------+------+-------+ | aspirin 81 mg EC | Take 81 mg by mouth | | 0 | 09/1 | | Activ | | tablet | Daily. | | | 4/20 | | e | | | | | | 12 | | | + + + +---------+------+------+-------+ | betamethasone | Apply a small amount | | 0 | 09/1 | | Activ | | valerate (VALISONE) | to scalp once or | | | /20 | | e | | 0.1 % lotion | twice a day | | | 12 | | | + + + +---------+------+------+-------+ | ferrous sulfate | 1 tablet by mouth | | 0 | 09/1 | | Activ | | 325 mg tablet | twice daily with | | | 4/20 | | e | | | meals | | | 12 | | | + + + +---------+------+------+-------+ | hydrOXYzine | One tablet by mouth | | 0 | 09/1 | | Activ | | (ATARAX) 25 MG | every 6 hours if | | | 4/20 | | e | | tablet | needed. May cause | | | 12 | | | | | drowsiness. | | | | | | + + + +---------+------+------+-------+ | simvastatin | Take 20 mg by mouth | | 0 | 09/1 | | Activ | | (ZOCOR) 20 mg tablet | every evening. | | | 4/20 | | e | | | | | | 12 | | | + + + +---------+------+------+-------+ | lidocaine | Apply a small amount | | 0 | 09/1 | | Activ | | (XYLOCAINE JELLY) 2% | to affected area | | | 4/20 | | e | | jelly | | | | 12 | | | + + + +---------+------+------+-------+ | metformin | Take 2-1/2 tablets | | 0 | 09/1 | | Activ | | (GLUCOPHAGE) 1000 MG | by mouth every | | | 4/20 | | e | | tablet | evening with food or | | | 12 | | | | | milk for diabetes | | | | | | + + + +---------+------+------+-------+ | TechLite Lancets | Use as directed by | | 0 | 09/1 | | Activ | | MISC | physician | | | 420 | | e | | | | | | 12 | | | + + + +---------+------+------+-------+ | telmisartan | Take 40 mg by mouth | | 0 | 02/22 | | Activ | | (MICARDIS) 40 mg | Daily. | | | 420 | | e | | tablet | | | | 12 | | | + + + +---------+------+------+-------+ | acetaminophen | Take 650 mg by mouth | | 0 | | | Activ | | (TYLENOL) 325 mg | every 6 hours as | | | | | e | | tablet | needed for Pain. | | | | | | + + + +---------+------+------+-------+ | amLODIPine | Take 10 mg by mouth | | 0 | | | Activ | | (NORVASC) 10 MG | Daily. | | | | | e | | tablet | | | | | | | + + + +---------+------+------+-------+ | b complex-vitamin | Take 1 tablet by | | 0 | 08/0 | | Activ | | c-folic acid | mouth daily. | | | 3/20 | | e | | (NEPHRO-THU) tablet | | | | 17 | | | + + + +---------+------+------+-------+ | b complex-vitamin | Take 1 tablet by | | 0 | | | Activ | | c-folic acid | mouth Daily. | | | | | e | | (NEPHRO-THU) tablet | | | | | | | + + + +---------+------+------+-------+ | | Inhale 2 puffs into | | 0 | 11/0 | | Activ | | budesonide-formotero | the lungs 2 (two) | | | 7/20 | | e | | l (SYMBICORT) | times daily. | | | 16 | | | | 160-4.5 mcg/puff | | | | | | | | inhaler | | | | | | | + + + +---------+------+------+-------+ | carvedilol (COREG) | Take 2 tablets by | | 0 | 02/0 | | Activ | | 3.125 mg tablet | mouth 2 (two) times | | | 1/20 | | e | | | daily with meals. | | | 18 | | | + + + +---------+------+------+-------+ | cholecalciferol | Take 2,000 Units by | | 0 | | | Activ | | (CHOLECALCIFEROL) | mouth Daily. | | | | | e | | 2000 units TABS | | | | | | | + + + +---------+------+------+-------+ | | | | 0 | 04/1 | | Activ | | HYDROcodone-acetamin | | | | 2/20 | | e | | ophen (NORCO) 5-325 | | | | 17 | | | | mg per tablet | | | | | | | + + + +---------+------+------+-------+ | levothyroxine | Take 75 mcg by mouth | | 0 | | | Activ | | (SYNTHROID) 75 MCG | every morning | | | | | e | | tablet | (before breakfast). | | | | | | + + + +---------+------+------+-------+ | montelukast | Take 1 tablet by | | 0 | 05/0 | | Activ | | (SINGULAIR) 10 mg | mouth nightly. | | | 7/20 | | e | | tablet | | | | 14 | | | + + + +---------+------+------+-------+ | ondansetron | | | 0 | 04/1 | | Activ | | (ZOFRAN ODT) 8 mg | | | | 2/20 | | e | | disintegrating | | | | 17 | | | | tablet | | | | | | | + + + +---------+------+------+-------+ | sevelamer | Take 2,400 mg by | | 0 | 08/0 | | Activ | | carbonate (RENVELA) | mouth 3 times daily | | | 3/20 | | e | | 800 mg tablet | (with meals). | | | 17 | | | + + + +---------+------+------+-------+ | sodium bicarbonate | Take 1,300 mg by | | 0 | | | Activ | | 650 mg tablet | mouth 2 times daily. | | | | | e | + + + +---------+------+------+-------+ | warfarin | Take 1 tablet by | | 0 | 04/2 | | Activ | | (COUMADIN) 4 MG | mouth Once | | | 8/20 | | e | | tablet | daily-Coumadin. | | | 18 | | | + + + +---------+------+------+-------+ | albuterol 90 | Inhale 2 puffs into | | 0 | 05/0 | | Activ | | mcg/puff inhaler | the lungs every 4 | | | 7/20 | | e | | | (four) hours as | | | 14 | | | | | needed for Wheezing. | | | | | | + + + +---------+------+------+-------+ | allopurinol | Take 100 mg by mouth | | 0 | | | Activ | | (ZYLOPRIM) 100 mg | daily. Indications: | | | | | e | | tablet | Primary Gout | | | | | | + + + +---------+------+------+-------+ | betamethasone | Apply topically 2 | | 0 | | | Activ | | valerate (VALISONE) | (two) times daily | | | | | e | | 0.1 % cream | for 7 days. | | | | | | + + + +---------+------+------+-------+ | | Inhale 1 puff into | | 0 | 05/0 | | Activ | | fluticasone-salmeter | the lungs 2 (two) | | | 7/20 | | e | | ol (ADVAIR, WIXELA | times daily. | | | 14 | | | | INHUB) 250-50 | | | | | | | | mcg/puff diskus | | | | | | | | inhaler | | | | | | | + + + +---------+------+------+-------+ Active Problems + + + | Problem | Noted Date | + + + | Anemia in ESRD (end-stage renal disease) | 01/21/2019 | + + + | SVC syndrome | 10/08/2017 | + + + | Superior vena caval stenosis | 10/07/2017 | + + + | AV fistula infection | 07/22/2017 | + + + | Blind left eye | 02/21/2017 | + + + | Chronic systolic (congestive) heart failure | 02/21/2017 | + + + | DM2 (diabetes mellitus, type 2) | 02/21/2017 | + + + | Incomplete RBBB | 02/21/2017 | + + + | Psoriasis-like skin disease | 02/19/2017 | + + + | Eczema of both upper extremities | 02/16/2017 | + + + | S/P pericardiocentesis | 09/12/2016 | + + + | Hyponatremia | 09/08/2016 | + + + | Chronic steroid use | 04/28/2016 | + + + | Polysubstance abuse | 04/28/2016 | + + + | Staphylococcus aureus bacteremia | 03/18/2014 | + + + | Steroid-induced hyperglycemia | 11/10/2013 | + + + | PUD (peptic ulcer disease) | 10/03/2012 | + + + | Gout | 07/06/2012 | + + + | Anemia of chronic kidney failure | 05/24/2012 | + + + | ESRD (end stage renal disease) on dialysis | 04/30/2012 | + + + + + | Overview: Last Assessment & Plan: Patient with a right AV | | upper extremity fistula. Recent concern for surrounding skin | | infection felt ultimately not to be infectious and improved with | | topical steroid. dialysis per nephrology via right upper | | Extremity AV fistula. Left IJ hemodialysis catheter has been | | removed Assessment & Plan: Vancomycin has been dosed | | accordingly. Doxycycline does not require any adjustment. | + + + + + | Diabetes mellitus with end-stage renal disease | 04/14/2012 | + + + | Obesity (BMI 30-39.9) | 04/14/2012 | + + + | Hypoalbuminemia | 04/11/2012 | + + + | Rash | 04/03/2012 | + + + | Secondary renal hyperparathyroidism | 04/03/2012 | + + + | Metabolic acidosis | 04/02/2012 | + + + | Chronic gouty arthritis | | + + + + + | Terrence: JAMIL [id number] Decision | + + + +---+ | HTN (hypertension) | | + +---+ + + | Overview: ICD-10 Record update | + + + +---+ | HLD (hyperlipidemia) | | + +---+ | HYPOTHYROIDISM | | + +---+ | DIABETES MELLITUS, UNCONTROLLED | | + +---+ | TOBACCO USER | | + +---+ | B12 DEFICIENCY | | + +---+ | UNSPECIFIED VITAMIN D DEFICIENCY | | + +---+ + + | Overview: ICD-10 Record update | + + + +---+ | ANEMIA | | + +---+ | IRON DEFICIENCY | | + +---+ + + | Overview: ICD-10 Record update | + + + +---+ | Chronic obstructive asthma | | + +---+ Family History + + +------+ + | Medical History | Relation | Name | Comments | + + +------+ + | Cancer | Father | | colon cancer | + + +------+ + | Diabetes | Father | | | + + +------+ + | Heart disease | Father | | | + + +------+ + | Heart disease | Mother | | | + + +------+ + + +------+ + + | Relation | Name | Status | Comments | + +------+ + + | Father | | Alive | | + +------+ + + | Father | | | | + +------+ + + | Mother | | | from [place] | | | | (Age | | | | | 55) | | + +------+ + + | Mother | | | | + +------+ + + Social History + +-------+ +--------+------+ | Tobacco Use | Types | Packs/Day | Years | Date | | | | | Used | | + +-------+ +--------+------+ | Former Smoker | | 1 | | | + +-------+ +--------+------+ + + | Comments: quit 17 yrs ago | + + + + + | Sex Assigned at [...] recent travel history available. | + + Last Filed Vital Signs + + + + + | Vital Sign | Reading | Time Taken | Comments | + + + + + | Blood Pressure | 118/55 | 10/19/2017 11:12 AM | | | | | PDT | | + + + + + | Pulse | 77 | 10/19/2017 11:12 AM | | | | | PDT | | + + + + + | Temperature | 37 C (98.6 F) | 10/19/2017 11:12 AM | | | | | PDT | | + + + + + | Respiratory Rate | 18 | 10/19/2017 11:12 AM | | | | | PDT | | + + + + + | Oxygen Saturation | - | - | | + + + + + | Inhaled Oxygen | - | - | | | Concentration | | | | + + + + + | Weight | 78.4 kg (172 lb 13.4 | 10/19/2017 11:12 AM | | | | oz) | PDT | | + + + + + | Height | 170.2 cm (5' 7.01") | 10/19/2017 11:12 AM | | | | | PDT | | + + + + + | Body Mass Index | 27.06 | 10/19/2017 11:12 AM | | | | | PDT | | + + + + + Plan of Treatment + + + + + | Health Maintenance | Due Date | Last Done | Comments | + + + + + | Vaccine: | | | | | Dtap/Tdap/Td (1 - | 2 | | | | Tdap) | | | | + + + + + | Vaccine: Zoster (1 | | | | | of 2) | 3 | | | + + + + + | Vaccine: Influenza | | | | | (#1) | 9 | | | + + + + + Implants + +------+--------+ +--------+--------+--------+ | Implanted | Type | Area | Manufacture | Device | Shelf | Model | | | | | r | | Expira | / | | | | | | Identi | tion | Serial | | | | | | fier | Date | / Lot | + +------+--------+ +--------+--------+--------+ | Hemodialysis Catheter 12x20 | | Left: | | | 10/05/ | [id number] | | Curved - Sn/AImplanted: Qty: | | Neck | | | 2013 | [id number] | | 1 on 07/07/2012 by Oskar Meyer | | | | | | /N/A | | MD Yan | | | | | | / | | | | | | | | 5X | + +------+--------+ +--------+--------+--------+ | Catheter Hemodialysis Alpha | | Left: | | | 02/22/ | [id number] | | Pre Cvd Intermediate Std | | Neck | | | 2012 | 0 | | Hemosplit 14.5 24cm - | | | | | | /[id number] | | [id number]: Qty: 1 on | | | | | | 90 | | 07/11/2012 by Oskar Meyer MD | | | | | | /RETE0 | | | | | | | | 631 | + +------+--------+ +--------+--------+--------+ Results Not on filefrom Last 3 Months Additional Health Concerns + + + + | Infection | Noted Time | Resolved Time | + + + + | Methicillin-resistant Staphylococcus aureus | 02/18/2017 12:00 AM | | | | PDT | | + + + + Insurance + +--------+ +--------+ +---------+--------+ | Payer | Benefi | Subscriber | Effect | Phone | Address | Type | | | t Plan | ID | home | | | | | | / | | Dates | | | | | | Group | | | | | | + +--------+ +--------+ +---------+--------+ | MEDICARE | MEDICA | [id number] | 06/24/19 | [phone] | | Medica | | | RE | | 13-Pre | 5 | | re | | | PART A | | sent | | | | | | AND B | | | | | | + +--------+ +--------+ +---------+--------+ | HEALTH | IHS | [id number] | | | | Indemn | | SERVICE | YELLOW | | 963-Pr | | | ity | | | HAWK | | esent | | | | + +--------+ +--------+ +---------+--------+ | MEDICAID [place] | MEDICA | [id number] | | [phone] | | Medica | | | [place] | | 019-Pr | 2 | | id | | | PLUS | | esent | | | | + +--------+ +--------+ +---------+--------+ + +--------+ +--------+ + + | Guarantor Name | Accoun | Relation to | Date | Phone | Billing Address | | | t Type | Patient | of | | | | | | | | | | + +--------+ +--------+ + + | Enrique Potter | Person | Self [birth year] | [address] | | | al/[place]cio | | 1965 | [phone] | [address] [place] | | | [place] | | | [address] (Home) | [address] | + +--------+ +--------+ + + | Enrique Potter | Person | Self | [birth year] | [address] | | | al/Fam | | 1965 | [phone] | [address] [place] | | | [place] | | | [address] ([place]) | [address] | + +--------+ +--------+ + +
--- OUTSIDE RECORDS SUMMARY | ~2019-05-20 | XMS | Encounter Summary ---
Demographics + + + | Address | [address] | | | [place] [address] | + + + | Home Phone | | + + + | Preferred Language | Unknown | + + + | Marital Status | Unknown | + + + | Sabianist Affiliation | 1076 | + + + | Race | Unknown | + + + | Ethnic Group | Unknown | + + + Author + + + | Author | [facility] | | | and [place] | + + + | Organization | [facility] | | | [...] Team Providers + +------+ + | Care Sales Support Consultant Name | Role | Phone | + +------+ + PCP | Unavailable | + +------+ + Encounter Details +--------+ + + + + | Date | Type | Department | Care Team | Description | +--------+ + + + + | 08/07/ | Hospital | [facility] | Conversion | ESRD (end stage | | 2013 | Encounter | [facility] | Transaction, | renal disease) (HCC) | | | | [address] | Provider Unknown | | | | | [place], [place] | [phone] | | | | | [address] | | | | | | [phone] | Juan Timmons MD | | | | | | [address] | | | | | | [place] | | | | | | [address] | | | | | | | [...] Progress Notes Conversion Transaction, Provider Unknown - 08/07/2012 1:51 PM PSTFormatting of this note m ight be different from the original. Progress Notes by Malika Norris RN at 08/07/12 1351 Author: Malika Norris RN Service: (none) Author Type: Registered Nurse Filed: 08/07/12 6506 Date of Service: 08/07/121350 Status: Signed Burglar Alarm Installer: Malika Norris RN (Registered Nurse) Pt. Vss, tolerated procedure well, all d/c teachings and instructions given to pt. And spou se, all questions answered, understanding stated, no further concerns at the moment. Pt. D/c via wheelchair with spouse. docume nted in this encounter Plan of Treatment Not on filedocumented as of this encounter Procedures + +--------+ + + + | Procedure Name | Priori | Date/Time | Associated Diagnosis | Comments | | | ty | | | | + +--------+ + + + | IR REMOVAL TUNNELED | Routin | 08/07/2012 | | Results for this | | CV CATH WO PORT | e | 1:32 PM | | procedure are in the | | | | PST | | results section. | + +--------+ + + + documented in this encounter Results IR Removal Tunneled CV Cath wo Port (08/07/2012 1:32 PM PST) + + | Specimen | + + | | + + + + + | Narrative | Performed At | + + + | PROCEDURE Removal of dual-lumen tunneled dialysis catheter in left | | | upper chest under local anesthesia. INDICATIONS Patient with | | | functioning left upper arm AV fistula. No longer utilizing tunneled | | | dialysis catheter as a functioning access, needs removal. | | | REQUESTING PROVIDER Juan Timmons MD MEDICATIONS Lidocaine 1% for | | | local anesthesia. DESCRIPTION OF PROCEDURE I met this patient in | | | the Charge Master Coordinator holding room. I had a discussion with the patient | | | regarding the procedure, the risks involved, and the alternatives. The | | | patient verbalized understanding of this and their desire was to | | | proceed with the procedure. Therefore, written informed consent was | | | obtained. The patient was lying supine in the bed. The left upper | | | chest and external portion of the catheter were prepped utilizing | | | chlorahexadine scrubs. The skin and subcutaneous tissues were | | | infiltrated with lidocaine 1%. Sterile drapes were laurent and sterile | | | technique was maintained throughout the procedure. Heparin lock was | | | removed from the dialysis catheter and 0.035 Amplatz guidewire was | | | placed through the venous port. Subsequently, using blunt | | | dissection, the subcutaneous cuff was from the adjacent soft | | | tissues and the catheter was removed over the wire. Hemostasis was | | | obtained with manual pressure. The patient tolerated the procedure | | | well and no procedural complications were encountered. IMPRESSION | | | Successful removal of left upper chest tunneled dialysis catheter | | | under local anesthesia without incident. | | + + + + + | Procedure Note | + + | Néstor, Rad Conversion - 02/13/2019 4:30 PM PDT PROCEDURERemoval of dual-lumen tunneled | | dialysis catheter in left upper chest under local anesthesia. INDICATIONSPatient with | | functioning left upper arm AV fistula. No longer utilizing tunneled dialysis catheter as | | a functioning access, needs removal. REQUESTING PROVIDERJuan Timmons MD | | MEDICATIONSLidocaine 1% for local anesthesia. DESCRIPTION OF PROCEDUREI met this patient | | in the Charge Master Coordinator holding room. I had a discussion with the patient regarding the | | procedure, the risks involved, and the alternatives. The patient verbalized | | understanding of this and their desire was to proceed with the procedure. Therefore, | | written informed consent was obtained. The patient was lying supine in the bed. The left | | upper chest and external portion of the catheter were prepped utilizing chlorahexadine | | scrubs. The skin and subcutaneous tissues were infiltrated with lidocaine 1%. Sterile | | drapes were laurent and sterile technique was maintained throughout the procedure. Heparin | | lock was removed from the dialysis catheter and 0.035 Amplatz guidewire was placed | | through the venous port. Subsequently, using blunt dissection, the subcutaneous cuff was | | from the adjacent soft tissues and the catheter was removed over the wire. | | Hemostasis was obtained with manual pressure. The patient tolerated the procedure well | | and no procedural complications were encountered. IMPRESSIONSuccessful removal of left | | upper chest tunneled dialysis catheter under local anesthesia without incident. | | | | | |Subsequently, using blunt dissection, the subcutaneous cuff was from the adjacent soft tissues and the catheter was removed over the wire. Hemostasis was obtained with manua l pressure. | | | |The patient tolerated the procedure well and no procedural complications were encountered. | | | |IMPRESSION | |Successful removal of left upper chest tunneled dialysis catheter under local anesthesia wi thout incident. | | | | | | | + + documented in this encounter Visit Diagnoses + + | Diagnosis | + + | ESRD (end stage renal disease) (HCC) End stage renal disease | + + documented in this encounter"
--- OUTSIDE RECORDS SUMMARY | ~2019-05-20 | XMS | Encounter Summary ---
Demographics + + + | Address | [address] | | | [place] [address] | + + + | Home Phone | | + + + | Preferred Language | Unknown | + + + | Marital Status | Unknown | + + + | Jew Affiliation | 1076 | + + + [...] Team Providers + +------+ + | Care Rehab Technician Name | Role | Phone | + +------+ + PCP | Unavailable | + +------+ + Encounter Details +--------+ + + + + | Date | Type | Department | Care Team | Description | +--------+ + + + + | 04/04/ | Emergency | [facility] | Trevor Kelly, | Acute bronchitis; | | 2013 | | MEDICAL CENTER | [address] | Dyspnea; Chronic | | | | EMERGENCY CENTER | [place] [address] | renal failure | | | | [address] | [phone] | | | | | [place], [place] | | | | | | [address] | | | | | | [phone] | | | +--------+ + + + [...] +--------+ + + + | XR CHEST 2 VIEWS | Routin | 04/04/2014 | | Results for this | | | e | 3:10 PM | | procedure are in the | | | | PDT | | results section. | + +--------+ + + + | HISTORICAL LAB PANEL | Routin | 04/04/2014 | | Results for this | | RESULT | e | 2:31 PM | | procedure are in the | | | | PDT | | results section. | + +--------+ + + + | B TYPE NATRIURETIC | Routin | 04/04/2014 | | Results for this | | PEPTIDE | e | 2:31 PM | | procedure are in the | | | | PDT | | results section. | + +--------+ + + + documented in this encounter Results XR Chest 2 Vws (04/04/2014 3:10 PM PDT) + + | Specimen | + + | | + + + + + | Impressions | Performed At | + + + | 1. Normal examination of the chest. 2. Left-sided vascular | | | access catheter noted in satisfactory position largely unchanged from | | | the previous exam. Electronically signed by Medhat Terry DO on | | | 04/04/2014 3:21 PM | | + + + + + + | Narrative | Performed At | + + + | ENRIQUE TARIQ XR CHEST 2 VIEW FRONTAL AND LATERAL 04/04/2014 3:10 PM | | | HISTORY: 49 years. Male. Shortness of breath. TECHNIQUE: | | | 2 views obtained. COMPARISON: 03/18/2014. FINDINGS: A dual | | | lumen vascular access catheter enters from a right subclavian | | | approach. The tip of the catheter is 8.5 cm below the sabine within | | | the right atrium. The heart is normal in size. The lungs are | | | normally expanded. The pulmonary vascular pattern is normal. No | | | acute airspace disease, parenchymal nodule, mass, pleural effusion or | | | pneumothorax is noted. No hilar adenopathy is seen. The osseous | | | structures are intact. | | + + + + + | Procedure Note | + + | Khalif Palm Conversion - 02/06/2019 10:59 AM PDT ENRIQUE STANTONGAURAV CHEST 2 VIEW FRONTAL AND | | [id number]/04/2014 3:10 PM HISTORY:49 years. Male. Shortness of breath. TECHNIQUE:2 | | views obtained. COMPARISON:03/18/2014. FINDINGS:A dual lumen vascular access catheter | | enters from a right subclavian approach. The tip of the catheter is 8.5 cm below the | | sabine within the right atrium.The heart is normal in size. The lungs are normally | | expanded. The pulmonary vascular pattern is normal. No acute airspace disease, | | parenchymal nodule, mass, pleural effusion or pneumothorax is noted. No hilar | | adenopathy is seen. The osseous structures are intact. IMPRESSION: 1. Normal | | examination of the chest.2. Left-sided vascular access catheter noted in satisfactory | | position largely unchanged from the previous exam. | |03/18/2014. | | | |FINDINGS: | |A dual lumen vascular access catheter enters from a right subclavian approach. The tip of the catheter is 8.5 cm below the sabine within the right atrium. | |The heart is normal in size. The lungs are normally expanded. The pulmonary vascular julia sirisha is normal. No acute airspace disease, parenchymal nodule, mass, pleural effusion or pne umothorax is noted. No hilar adenopathy is seen. The osseous | |structures are intact. | | | |IMPRESSION: | |1. Normal examination of the chest. | |2. Left-sided vascular access catheter noted in satisfactory position largely unchanged fr om the previous exam. | | | | | + + HISTORICAL LAB PANEL RESULT (04/04/2014 2:31 PM PDT) + + + + + -+ | Component | Value | Ref Range | Performed | Pathologist | | | | | At | Signature | + + + + + -+ | WBC | 5.7Comment: Testing | 3.8 - 11.0 K/uL | EXTERNAL | | | | performed at [facility];[address] | | LAB | | | | [address];[place], [place] | | | | | | [address] | | | | + + + + + -+ | RED CELL | 3.82 (L)Comment: Testing | 4.20 - 5.70 | EXTERNAL | | | COUNT | performed at [facility];[address] | M/uL | LAB | | | | [address];[place] | | | | | | [address] | | | | + + + + + -+ | Hgb | 11.6 (L)Comment: Testing | 13.2 - 17.0 | EXTERNAL | | | | performed at [facility];888 | g/dL | LAB | | | | [address];[place] | | | | | | [address] | | | | + + + + + -+ | Hematocrit, | 34.4 (L)Comment: Testing | 39.0 - 50.0 % | EXTERNAL | | | POC | performed at [facility];[address] | | LAB | | | | [address];[place] | | | | | | [address] | | | | + + + + + -+ | MCV | 90.2Comment: Testing | 80.0 - 100.0 fl | EXTERNAL | | | | performed at [facility];[address] | | LAB | | | | [address];[place] | | | | | | [address] | | | | + + + + + -+ | MCH | 30.3Comment: Testing | 27.0 - 34.0 pg | EXTERNAL | | | | performed at [facility];[address] | | LAB | | | | [address];[place] | | | | | | [address] | | | | + + + + + -+ | MCHC | 33.6Comment: Testing | 32.0 - 35.5 | EXTERNAL | | | | performed at [facility];888 | g/dL | LAB | | | | [address];[place] | | | | | | [address] | | | | + + + + + -+ | RDW-CV | 53.4 (H)Comment: Testing | 37 - 53 fl | EXTERNAL | | | | performed at [facility];[address] | | LAB | | | | [address];[place] | | | | | | [address] | | | | + + + + + -+ | Platelet | 220Comment: Testing | 150 - 400 K/uL | EXTERNAL | | | Count | performed at [facility];[address] | | LAB | | | Plasma | [address];[place] | | | | | | [address] | | | | + + + + + -+ | MPV | 6.3Comment: Testing | fl | EXTERNAL | | | | performed at [facility];[address] | | LAB | | | | [address];[place] | | | | | | [address] | | | | + + + + + -+ | Differentia | AUTOMATEDComment: | | EXTERNAL | | | l Type | Testing performed at | | LAB | | | | [facility];[address];[place] [address] | | | | + + + + + -+ | % Segmented | 61.5Comment: Testing | % | EXTERNAL | | | | performed at [facility];[address] | | LAB | | | Neutrophils | [address];[place] | | | | | | [address] | | | | + + + + + -+ | % | 16.9Comment: Testing | % | EXTERNAL | | | Lymphocytes | performed at [facility];[address] | | LAB | | | | [address];[place] | | | | | | [address] | | | | + + + + + -+ | % Monocytes | 8.0Comment: Testing | % | EXTERNAL | | | | performed at [facility];[address] | | LAB | | | | [address];[place] | | | | | | [address] | | | | + + + + + -+ | % | 12.8Comment: Testing | % | EXTERNAL | | | Eosinophils | performed at [facility];[address] | | LAB | | | | [address];[place] | | | | | | [address] | | | | + + + + + -+ | % Basophils | 0.8Comment: Testing | % | EXTERNAL | | | | performed at [facility];[address] | | LAB | | | | [address];[place] | | | | | | [address] | | | | + + + + + -+ | Absolute | 3.5Comment: Testing | 1.9 - 7.4 K/uL | EXTERNAL | | | Segmented | performed at [facility];[address] | | LAB | | | Neutrophils | [address];[place] | | | | | | [address] | | | | + + + + + -+ | Absolute | 1.0Comment: Testing | 1.0 - 3.9 K/uL | EXTERNAL | | | Lymphocytes | performed at [facility];[address] | | LAB | | | | [address];[place] | | | | | | [address] | | | | + + + + + -+ | Absolute | 0.5Comment: Testing | 0 - 0.8 K/uL | EXTERNAL | | | Monocytes | performed at [facility];[address] | | LAB | | | | [address];[place] | | | | | | [address] | | | | + + + + + -+ | Absolute | 0.7 (H)Comment: Testing | 0 - 0.5 K/uL | EXTERNAL | | | Eosinophils | performed at [facility];[address] | | LAB | | | | [address];[place] | | | | | | [address] | | | | + + + + + -+ | Absolute | 0.0Comment: Testing | 0 - 0.1 K/uL | EXTERNAL | | | Basophils | performed at [facility];[address] | | LAB | | | | [address];[place] | | | | | | [address] | | | | + + + + + -+ | Na | 137Comment: Testing | 135 - 143 | EXTERNAL | | | | performed at [facility];[address] | mmol/L | LAB | | | | [address];[place] | | | | | | [address] | | | | + + + + + -+ | K | 4.8Comment: Testing | 3.5 - 4.9 | EXTERNAL | | | | performed at [facility];[address] | mmol/L | LAB | | | | [address];[place] | | | | | | [address] | | | | + + + + + -+ | Cl | 101Comment: Testing | 99 - 109 mmol/L | EXTERNAL | | | | performed at [facility];[address] | | LAB | | | | [address];[place] | | | | | | [address] | | | | + + + + + -+ | CO2 | 28Comment: Testing | 23 - 32 mmol/L | EXTERNAL | | | | performed at [facility];[address] | | LAB | | | | [address];[place] | | | | | | [address] | | | | + + + + + -+ | Anion Gap | 13Comment: Testing | 5 - 20 mmol/L | EXTERNAL | | | | performed at [facility];[address] | | LAB | | | | [address];[place] | | | | | | [address] | | | | + + + + + -+ | Glucose, | 120 (H)Comment: Testing | 65 - 99 mg/dL | EXTERNAL | | | Fasting | performed at [facility];[address] | | LAB | | | | [address];[place] | | | | | | [address] | | | | + + + + + -+ | BUN | 27 (H)Comment: Testing | 8 - 25 mg/dL | EXTERNAL | | | | performed at [facility];[address] | | LAB | | | | [address];[place] | | | | | | [address] | | | | + + + + + -+ | Creatinine | 6.67 (H)Comment: Testing | 0.70 - 1.30 | EXTERNAL | | | | performed at [facility];[address] | mg/dL | LAB | | | | [address];[place] | | | | | | [address] | | | | + + + + + -+ | BUN/Creatin | 4Comment: Testing | | EXTERNAL | | | ine Ratio | performed at [facility];[address] | | LAB | | | | [address];[place] | | | | | | [address] | | | | + + + + + -+ | Calcium | 7.8 (L)Comment: Testing | 8.5 - 10.2 | EXTERNAL | | | | performed at [facility];[address] | mg/dL | LAB | | | | [address];[place] | | | | | | [address] | | | | + + + + + -+ | Protein, | 6.8Comment: Testing | 6.3 - 8.2 g/dL | EXTERNAL | | | Total | performed at [facility];[address] | | LAB | | | | [address];[place] | | | | | | [address] | | | | + + + + + -+ | Albumin | 2.9 (L)Comment: Testing | 3.6 - 5.0 g/dL | EXTERNAL | | | | performed at [facility];[address] | | LAB | | | | [address];[place] | | | | | | [address] | | | | + + + + + -+ | Globulin | 3.8Comment: Testing | 1.3 - 4.9 g/dL | EXTERNAL | | | | performed at [facility];[address] | | LAB | | | | [address];[place] | | | | | | [address] | | | | + + + + + -+ | A/G Ratio | 0.8 (L)Comment: Testing | 1.0 - 2.4 | EXTERNAL | | | | performed at [facility];[address] | | LAB | | | | [address];[place] | | | | | | [address] | | | | + + + + + -+ | Bilirubin | 0.6Comment: Testing | 0.1 - 1.5 mg/dL | EXTERNAL | | | Total | performed at [facility];[address] | | LAB | | | | [address];[place] | | | | | | [address] | | | | + + + + + -+ | ALP, | 140 (H)Comment: Testing | 35 - 115 U/L | EXTERNAL | | | External | performed at [facility];[address] | | LAB | | | | [address];[place] | | | | | | [address] | | | | + + + + + -+ | AST | 39Comment: Testing | 10 - 45 U/L | EXTERNAL | | | | performed at [facility];[address] | | LAB | | | | [address];[place] | | | | | | [address] | | | | + + + + + -+ | ALT | 49Comment: Testing | 10 - 65 U/L | EXTERNAL | | | | performed at [facility];[address] | | LAB | | | | [address];[place] | | | | | | [address] | | | | + + + + + -+ | Estimated | 9 (L)Comment: GFR <60: | mL/min/1.73m2 | EXTERNAL [...] | | | | | | at [facility];[address] | | | | | [address];[place] [address] | | | | + + + + + -+ | CK, Total | 62Comment: Testing | 55 - 400 U/L | EXTERNAL | | | | performed at [facility];[address] | | LAB | | | | [address];[place] | | | | | | [address] | | | | + + + + + -+ | INR | 1.0Comment: REFERENCE | | EXTERNAL | | | [...] | | | | | performed at [facility];[address] | | | | | | [address];[place] | | | | | | [address] | | | | + + + + + -+ | aPTT, | 25Comment: Testing | 23 - 32 seconds | EXTERNAL | | | Patient | performed at [facility];[address] | | LAB | | | | [address];[place] | | | | | | [address] | | | | + + + + + -+ | CK-MB | 3.2Comment: Testing | 0.5 - 3.6 ng/mL | EXTERNAL | | | | performed at [facility];[address] | | LAB | | | | [address];[place] | | | | | | [address] | | | | + + + + + -+ | CK-MB Index | 5.2Comment: CK INDEX | | EXTERNAL | | [...] +---------+ + + B Type Natriuretic Peptide (04/04/2014 2:31 PM PDT) + + + + + + | Component | Value | Ref Range | Performed | Pathologist | | | | | At | Signature | + + + + + + | BNP | 285 (H)Comment: Testing | 0 - 100 pg/mL | EXTERNAL | | | | performed at [facility] | | LAB | | | | [address];[place] | | | | | | [address] | | | | + + + [...] + | Diagnosis | + + | Acute bronchitis | + + | Dyspnea Other dyspnea and respiratory abnormality | + + | Chronic renal failure Chronic kidney disease, unspecified | + + documented in this encounter"
--- OUTSIDE RECORDS SUMMARY | ~2019-05-20 | XMS | Encounter Summary ---
Demographics + + + | Address | [address] | | | [place] [address] | + + + | Home Phone | | + + + | Preferred Language | Unknown | + + + | Marital Status | Unknown | + + + | Hoahaoism Affiliation | 1076 | + + + | Race | Unknown | + + + | Ethnic Group | Unknown | + + + Author + + + | Author | [facility] | | | and [place] | + + + | Organization | [facility] | | | [...] Team Providers + +------+ + | Care Radio Board Operator Name | Role | Phone | + +------+ + PCP | Unavailable | + +------+ + Encounter Details +--------+ + + + + | Date | Type | Department | Care Team | Description | +--------+ + + + + | 12/29/ | Hospital | [facility] | Conversion | ESRD (end stage | | 2014 | Encounter | CENTER CV INTRA OP | Transaction, | renal disease) (HCC) | | | | [address] | Provider Unknown | | | | | [place], [place] | [phone] | | | | | [address] | | | | | | [phone] | Juan Timmons MD | | | | | | [address] | | | | | | [place] | | | | | | [address] | | | | | | | [...] + +--------+ + + + | IR REPLACEMENT | Routin | 12/29/2013 | | Results for this | | TUNNELED CATH SAME | e | 2:28 PM | | procedure are in the | | ACCESS | | PDT | | results section. | + +--------+ + + + documented in this encounter Results IR Replacement Tunneled Cath (12/29/2013 2:28 PM PDT) + + | Specimen | + + | | + + + + + | Impressions | Performed At | + + + | Successful exchange of the nonfunctioning tunneled dialysis catheter | | | in left upper chest for new, 14.5-Iranian, dual lumen, 27 cm tunneled | | | dialysis catheter over a wire under fluoroscopy guidance without | | | incidence. [address] upper the uppermost | | + + + + + + | Narrative | Performed At | + + + | [facility]OL [facility]ODS TUNNELED CATHETER REPLACEMENT SAME ACCESS 12/29/2013 | | | 2:28 PM HISTORY: 48 years. Male. Nonfunctioning left upper | | | chest tunneled dialysis catheter. 585.6 MEDICATION: Versed 0 | | | milligrams, Fentanyl 50 mcg intravenous intravenous, intra-procedure | | | sedation time 20 minutes. Radiation dose 1 mGy, fluoroscopy time 0.1 | | | minutes. PROCEDURE: Informed written consent obtained from the | | | patient after explaining the procedure, risks and alternatives. | | | Patient understood the procedure and expressed His wish to proceed. | | | "The appropriate side and site was labeled and initialed as an | | | independent process antecedent to the imaging and intervention, as per | | | protocol at this institution.? Patient was placed supine on | | | the x-ray table. Left upper chest and the external portion of the | | | catheter in usual sterile fashion. Radiograph of the upper chest was | | | obtained. A heparin lock in one of the port was aspirated and a | | | 0.035, Amplatz wire was placed with its tip in inferior vena cava | | | under fluoroscopy guidance. New, 27 cm 14.5-Iranian, dual-lumen | | | tunneled the catheter was placed in the subcutaneous tunnel over the | | | Amplatz wire. End of the dialysis catheter was placed with its tip in | | | the upper right atrium. Catheter secured to skin using 2-0 Prolene. | | | Both ports of the catheter aspirated and flushed freely. | | | Radiograph of the Left upper chest was obtained. Dermabond applied | | | to skin entry site. FINDINGS: 1. Initial radiograph of the | | | upper chest shows 24 cm, tunneled dialysis catheter with its tip in | | | the upper right atrium. 2. Final radiograph of the left upper chest | | | shows 14.5-Iranian, 27 dual-lumen tunneled dialysis catheter with its | | | tip in the upper right atrium. | | + + + + + | Procedure Note | + + | Khalif Palm Conversion - 02/06/2019 10:59 AM PDT CAROL SUZANNE TUNNELED CATHETER | | REPLACEMENT SAME ACCESS12/29/2013 2:28 PM HISTORY:48 years. Male. Nonfunctioning left | | upper chest tunneled dialysis catheter. 585.6 MEDICATION:Versed 0 milligrams, Fentanyl | | 50 mcg intravenous intravenous, intra-procedure sedation time 20 minutes. Radiation | | dose 1 mGy, fluoroscopy time 0.1 minutes. PROCEDURE:Informed written consent obtained | | from the patient after explaining the procedure, risks and alternatives. Patient | | understood the procedure and expressed His wish to proceed."The appropriate side and | | site was labeled and initialed as an independent process antecedent to the imaging and | | intervention, as per protocol at this institution.? Patient was placed supine on the | | x-ray table. Left upper chest and the external portion of the catheter in usual sterile | | fashion. Radiograph of the upper chest was obtained. A heparin lock in one of the | | port was aspirated and a 0.035, Amplatz wire was placed with its tip in inferior vena | | cava under fluoroscopy guidance. New, 27 cm 14.5-Iranian, dual-lumen tunneled the | | catheter was placed in the subcutaneous tunnel over the Amplatz wire. End of the | | dialysis catheter was placed with its tip in the upper right atrium. Catheter secured to | | skin using 2-0 Prolene. Both ports of the catheter aspirated and flushed freely. | | Radiograph of the Left upper chest was obtained. Dermabond applied to skin entry site. | | FINDINGS:1. Initial radiograph of the upper chest shows 24 cm, tunneled dialysis | | catheter with its tip in the upper right atrium.2. Final radiograph of the left upper | | chest shows 14.5-Iranian, 27 dual-lumen tunneled dialysis catheter with its tip in the | | upper right atrium. IMPRESSION: Successful exchange of the nonfunctioning tunneled | | dialysis catheter in left upper chest for new, 14.5-Iranian, dual lumen, 27 cm tunneled | | dialysis catheter over a wire under fluoroscopy guidance without incidence. [address] upper | | the uppermost | | | |IMPRESSION: | |Successful exchange of the nonfunctioning tunneled dialysis catheter in left upper chest fo r new, 14.5-Iranian, dual lumen, 27 cm tunneled dialysis catheter over a wire under fluorosco py guidance without incidence. | | | |[address] upper the uppermost | | | | | + + documented in this encounter Visit Diagnoses + + | Diagnosis | + + | ESRD (end stage renal disease) (HCC) End stage renal disease | + + documented in this encounter
--- OUTSIDE RECORDS SUMMARY | ~2019-05-20 | XMS | Encounter Summary ---
Demographics + + + | Address | [address] | | | [place] [address] | + + + | Home Phone | | + + + | Preferred Language | Unknown | + + + | Marital Status | Unknown | + + + | Sabianism Affiliation | 1076 | + + + [...] Team Providers + +------+ + | Care Hand Slitter Name | Role | Phone | + +------+ + | Andry Deng DO | PCP | | + +------+ + Encounter Details +--------+ + + + + | Date | Type | Department | Care Team | Description | +--------+ + + + + | 04/26/ | Orders Only | [facility] | Conversion | | | 2013 | | INFECTIOUS DISEASE | Transaction, | | | | | [address] | Provider Unknown | | | | | [place], [place] | [phone] | | | | | [address] | (Fax) | | | | | [phone] | | | +--------+ + + + [...] | CBC WITH MANUAL | Routin | 04/26/2014 | | Results for this | | DIFFERENTIAL | e | 12:00 AM | | procedure are in the | | | | PST | | results section. | + +--------+ + + + | SEDIMENTATION RATE, | Routin | 04/26/2014 | | Results for this | | AUTOMATED | e | 12:00 AM | | procedure are in the | | | | PST | | results section. | + +--------+ + + + | C-REACTIVE PROTEIN | Routin | 04/26/2014 | | Results for this | | | e | 12:00 AM | | procedure are in the | | | | PST | | results section. | + +--------+ + + + documented in this encounter Results Sedimentation rate, automated (04/26/2014 12:00 AM PST) + +-------+ + + + | Component | Value | Ref Range | Performed | Pathologist | | | | | At | Signature | + +-------+ + + + | Sed Rate | 36 | | EXTERNAL | | | | [...] +---------+ + + CBC with Manual Differential (04/26/2014 12:00 AM PST) + +-------+ + + + | Component | Value | Ref Range | Performed | Pathologist | | | | | At | Signature | + +-------+ + + + | WBC | 5.2 | 10 | EXTERNAL | | | | | | LAB | | + +-------+ + + + | RED CELL | 4.71 | 10 | EXTERNAL | | | COUNT | | | LAB | | + +-------+ + + + | Hgb | 14.1 | g/dL | EXTERNAL | | | | | | LAB | | + +-------+ + + + | Hematocrit, | 43.2 | % | EXTERNAL | | | POC | | | LAB | | + +-------+ + + + | MCV | 91.7 | fL | EXTERNAL | | | [...] +-------+ + + + | RDW-CV | 16.9 | % | EXTERNAL | | | | | | LAB | | + +-------+ + + + | Platelet | 215 | K/ L | EXTERNAL | | | Count | | | LAB | | | Plasma | | | | | + +-------+ + + + | MPV | | fL | EXTERNAL | | | | | | LAB | | + +-------+ + + + | % Segmented | 55.3 | % | EXTERNAL | | | | | | LAB | | | Neutrophils | | | | | + +-------+ + + + | % | 23.2 | % | EXTERNAL | | | Lymphocytes | | | LAB | | + +-------+ + + + | % Monocytes | 5.7 | % | EXTERNAL | | | | | | LAB | | + +-------+ + + + | % | 14.6 | % | EXTERNAL | | | Eosinophils | | | LAB | | + +-------+ + + + | % Basophils | 1.2 | % | EXTERNAL | | | [...] | + +---------+ + + C-Reactive Protein (04/26/2014 12:00 AM PST) + + + + + + | Component | Value | Ref Range | Performed | Pathologist | | | | | At | Signature | + + + + + + | CRP | 5Comment: < | mg/dL | EXTERNAL | | | [...] PDT | | + + + + documented as of this encounter"
--- OUTSIDE RECORDS SUMMARY | ~2019-05-20 | XMS | Encounter Summary ---
Demographics + + + | Address | [address] | | | [place] [address] | + + + | Home Phone | | + + + | Preferred Language | Unknown | + + + | Marital Status | Unknown | + + + | Protestant Affiliation | 1076 | + + + | Race | Unknown | + + + | Ethnic Group | Unknown | + + + Author + + + | Author | [facility] | | | and [place] | + + + | Organization | [facility] | | | and [...] Team Providers + +------+ + | Care Architect Marine Name | Role | Phone | + +------+ + PCP | Unavailable | + +------+ + Encounter Details +--------+ + + + + | Date | Type | Department | Care Team | Description | +--------+ + + + + | 02/09/ | Hospital | [facility] | Oskar Meyer MD | | | 2014 | Encounter | [facility] | [address] | | | | | [address] | [place], [place] | | | | | [place], [place] | [address] | | | | | [address] | [phone] | | | | | [phone] | | | +--------+ + + + [...] | | | Fingerstick | performed at [facility];[address] | | LAB | | | | [address];[place] | | | | | | [id number] | | | | + + + [...] | | | Fingerstick | performed at [facility];[address] | | LAB | | | | [address];[place] | | | | | | [address] | | | | + + + [...]
--- OUTSIDE RECORDS SUMMARY | ~2019-05-20 | XMS | Encounter Summary ---
Demographics + + + | Address | [address] | | | [place] [address] | + + + | Home Phone | | + + + | Preferred Language | Unknown | + + + | Marital Status | Unknown | + + + | Worship Affiliation | 1076 | + + + | Race | Unknown | + + + | Ethnic Group | Unknown | + + + Author + + + | Author | [facility] | | | and [place] | + + + | Organization | [facility] | | | and [...] Team Providers + +------+ + | Care Development Spec Name | Role | Phone | + +------+ + | Andry eDng DO | PCP | | + +------+ + Encounter Details +--------+ + + + + | Date | Type | Department | Care Team | Description | +--------+ + + + + | 08/27/ | Orders Only | [facility] | Franklyn Malin MD | | | 2017 | | VASCULAR SURGERY | [address] | | | | | ULTRASOUND [address] | [place], [place] | | | | | [address] | [id number] | | | | | [place], [place] | | | | | | [address] | | | | | | [phone] | | | +--------+ + + + [...] | + +--------+ + + + | VAS HEMODIALYSIS | Routin | 08/27/2016 | | Results for this | | GRAFT FISTULA | e | 10:49 AM | | procedure are in the | | | | PST | | results section. | + +--------+ + + + documented in this encounter Results VAS Hemodialysis Graft Fistula (08/27/2016 10:49 AM PST) + + | Specimen | + + | | + + + + + | Impressions | Performed At | + + + | 1. Velocity elevations through the graft, up to 638 cm/s at the | | | anastomosis. Although the fistula is widely patent, elevated | | | velocities could be evidence of subsequent difficulty. Close imaging | | | surveillance should be considered | | + + + + + + | Narrative | Performed At | + + + | HISTORY: 51-year-old male, requires interrogation of hemodialysis | | | fistula graft TECHNIQUE: 1. Sonographic evaluation of the | | | right upper extremity, color flow Doppler and duplex evaluation | | | through the arteriovascular supply] EDV right brachiobasilic fistula | | | in the proximal right upper extremity Prior study for review : | | | None similar FINDINGS: Flow in the distal brachial artery | | | demonstrates a peak velocity of 436 cm/s, there is ileus seen and | | | spectral broadening. The flow volume is about 1.2 L/m At the | | | anastomosis, AP velocity is even higher, 638 cm/s, with a luminal | | | diameter of 6.7 mm. Diastolic flow is also elevated to 351 cm per sec | | | and there is increasing spectral broadening The outflow vein is | | | capacious, but with a velocity of 218 cm/s Flow volume of 5.8 L/m. A | | | luminal diameter of 13 mm is demonstrated Outflow vein | | | demonstrates a velocity of about 164 significant second at the level | | | of the midhumerus, and inflow volume of 1.77 m/m | | + + + + + | Procedure Note | + + | Khalif Palm Conversion - 02/12/2019 6:42 PM PDT HISTORY: 51-year-old male, requires | | interrogation of hemodialysis fistula graft TECHNIQUE: 1. Sonographic evaluation of the | | right upper extremity, color flow Doppler and duplex evaluation through the | | arteriovascular supply] EDV right brachiobasilic fistula in the proximal right upper | | extremity Prior study for review : None similar FINDINGS: Flow in the distal brachial | | artery demonstrates a peak velocity of 436 cm/s, there is ileus seen and spectral | | broadening. The flow volume is about 1.2 L/m At the anastomosis, AP velocity is even | | higher, 638 cm/s, with a luminal diameter of 6.7 mm. Diastolic flow is also elevated to | | 351 cm per sec and there is increasing spectral broadening The outflow vein is | | capacious, but with a velocity of 218 cm/sFlow volume of 5.8 L/m. A luminal diameter of | | 13 mm is demonstrated Outflow vein demonstrates a velocity of about 164 significant | | second at the level of the midhumerus, and inflow volume of 1.77 m/m IMPRESSION: 1. | | Velocity elevations through the graft, up to 638 cm/s at the anastomosis. Although the | | fistula is widely patent, elevated velocities could be evidence of subsequent | | difficulty. Close imaging surveillance should be considered | |Flow volume of 5.8 L/m. A luminal diameter of 13 mm is demonstrated | | | |Outflow vein demonstrates a velocity of about 164 significant second at the level of the mi dhumerus, and inflow volume of 1.77 m/m | | | |IMPRESSION: | | | |1. Velocity elevations through the graft, up to 638 cm/s at the anastomosis. | | | |Although the fistula is widely patent, elevated velocities could be evidence of subsequent difficulty. Close imaging surveillance should be considered | | | | | + + [...]
--- OUTSIDE RECORDS SUMMARY | ~2019-05-20 | XMS | Encounter Summary ---
Demographics + + + | Address | [address] | | | [place] [address] | + + + | Home Phone | | + + + | Preferred Language | Unknown | + + + | Marital Status | Unknown | + + + | Sikhism Affiliation | [id number] | + + + | Race | Unknown | + + + | Ethnic Group | Unknown | + + + Author + + + | Author | [facility] | | | and [place] | + + + | Organization | [facility] | | | [...] Team Providers + +------+ + | Care Cornice Upholsterer Name | Role | Phone | + +------+ + PCP | Unavailable | + +------+ + Encounter Details +--------+ + + + + | Date | Type | Department | Care Team | Description | +--------+ + + + + | 10/07/ | Hospital | [facility] | Roberto Mtz, | Pain; Staphylococcus | | 2018 - | Encounter | [facility] [address] | [address] | aureus bacteremia; | | | | [address] | [place] [address] | Hypoalbuminemia; | | 10/19/ | | [place], [place] | [phone] | Hyperphosphatemia; | | 2017 | | [address] | | Hyperkalemia; | | | | [phone] | | Anasarca; Swelling | | | | | | of right upper | | | | | | extremity; | | | | | | Cellulitis of right | | | | | | upper extremity; End | | | | | | stage renal failure | | | | | | on dialysis ([facility]); | | | | | | Superior vena caval | | | | | | stenosis; Anemia in | | | | | | ESRD (end-stage | | | | | | renal disease) | | | | | | (HCC); Infection of | | | | | | arteriovenous | | | | | | fistula, subsequent | | | | | | encounter; SVC | | | | | | syndrome | +--------+ + + + + Social [...] + documented in this encounter Discharge Summaries Simone Roblero MD - 10/19/2017 9:34 AM PDTFormatting of this note might be differ ent from the original. Discharge Summaries by Simone Roblero MD at 10/19/17 0934 Author: Simone Roblero MD Service: Hospitalist Author Type: Physician Filed: 10/19/17 1616 Date of Service: 10/19/17933 Status: Signed Muffler Tender: Simone Roblero MD (Physician) Related Notes: Original Note by Simone Roblero MD (Physician) filed at 10/19/17 0940 [facility]: Hospitalist Discharge Summary Date of Admission: 10/07/2017 Date of Discharge: 10/19/2017 Discharge Provider: Simone Roblero MD Treatment Team: Consulting Physician: Obdulio Ellison MD Consulting Physician: Cosmo Soria MD Consulting Physician: Franklyn Malin MD Consulting Physician: Jimenez Garnica MD PhD Consulting Physician: Elsie Lerner MD Admitting Provider: Roberto Mtz MD Discharge Diagnoses: Principal Problem: 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HCC) Active Problems: Metabolic acidosis Hypoalbuminemia Diabetes mellitus with ESRD (end-stage renal disease) HTN (hypertension) ESRD (end stage renal disease) on dialysis Anemia of chronic kidney failure Gout Staphylococcus aureus bacteremia Superior vena caval stenosis SVC syndrome Resolved Problems: Chest pain, unspecified BRIEF HISTORY OF PRESENTATION: Carol Potter is a 52 y.o. male who who was admitted to the hospital 10 days ago, and wa s found to have a central venous occlusion, MRSA bacteremia, and a pocket of fluid collectio n at the AV fistula site, most likely infection. Initially, vascular surgery was consulted, and drained the fistula, the pocket of fluid around the fistula. There was no growth on that fluid collection, although blood cultures from the dialysis came back positive for MRSA phyllis teremia. The patient was started on vancomycin. ID was consulted. They advised 6 weeks of IV antibiotics. 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 The patient was started on Coumadin and heparin. On the day of discharge his INR is therapeutic . The patient's fistula is still not ready for use, therefore a left IJ catheter was placed, which is being used for his hemodialysis. The patient will continue to get his IV vancomyci n for 6 weeks. He will be discharged home with outpatient followup with his solid waste manager and ID. Prescriptions Prior to Admission Medication Sig Dispense Refill Last Dose amLODIPine (NORVASC) 10 MG tablet Take 10 mg by mouth daily. Past Week at Unknown jb e carvedilol (COREG) 3.125 MG tablet Take 2 tablets by mouth 2 (two) times daily with tarun ls. 60 tablet 0 Past Week at Unknown time sevelamer (RENVELA) 800 MG tablet take 3 tablets by mouth three times a day WITH MEALS AND 1 TABLET WITH SNACKS 300 tablet 5 10/06/2017 at Unknown time acetaminophen (TYLENOL) 325 MG tablet Take 650 mg by mouth every 6 (six) hours as neede d. Indications: Pain Past Week at Unknown time albuterol (PROVENTIL HFA) 108 (90 BASE) MCG/ACT inhaler Inhale 2 puffs into the lungs e very 4 (four) hours as needed for Wheezing. (Patient taking differently: Inhale 2 puffs into the lungs every 4 (four) hours as needed for Wheezing. Took last night) 1 Inhaler 1 Taking allopurinol (ZYLOPRIM) 100 MG tablet Take 100 mg by mouth daily. Indications: Primary G out 02/14/2017 at Unknown time b complex-vitamin c-folic acid (NEPHRO-THU) 0.8 MG TABS tablet Take 1 tablet by mouth daily. 30 tablet 11 02/15/2017 at Unknown time betamethasone valerate (VALISONE) 0.1 % cream Apply topically 2 (two) times daily for 7 days. 30 g 0 budesonide-formoterol (SYMBICORT) 160-4.5 MCG/ACT inhaler Inhale 2 puffs into the lungs 2 (two) times daily. 2 each 0 Cholecalciferol 2000 UNITS TABS Take 1 tablet by mouth daily. 02/15/2017 at Unknown ti me fluticasone-salmeterol (ADVAIR DISKUS) 250-50 MCG/DOSE Inhale 1 puff into the lungs 2 ( two) times daily. 60 each 0 Unknown at Unknown time HYDROcodone-acetaminophen (NORCO) 5-325 MG per tablet 10/07/2016 at Unknown time levothyroxine (SYNTHROID) 75 MCG tablet Take 75 mcg by mouth every morning before break fast. Indications: Underactive Thyroid 02/15/2017 at Unknown time montelukast (SINGULAIR) 10 MG tablet Take 1 tablet by mouth nightly. 30 tablet 0 Taking ondansetron (ZOFRAN-ODT) 8 MG disintegrating tablet 02/15/2017 at Unknown time sodium bicarbonate 650 MG tablet Take 1,300 mg by mouth 2 (two) times daily. 017 at Unknown time DISCHARGE EXAM Vital Signs: BP 155/66 | Pulse 78 | Temp 98.6 F (37 C) (Oral) | Resp 18 | Ht 1.702 m (5' 7.01") | Wt 78.4 kg (172 lb 13.5 oz) | SpO2 100% | BMI 27.06 kg/m Physical Exam General Appearance: awake, alert, oriented, in no acute distress Eyes: No gross abnormalities. Neck: neck- supple, no mass, non-tender Lungs: Normal expansion. Clear to auscultation. No rales, rhonchi, or wheezing. Heart: Heart sounds are normal. Regular rate and rhythm without murmur, gallop or rub. Extremities:R arm less swollen Fistula site no drainage. DATA Recent Labs Lab 10/18/17 0153 10/17/17 0314 10/16/17 0359 WBC 7.39 7.37 12.27* HGB 8.7* 9.4* 9.8* HCT 26.8* 28.3* 30.7* PLT 176 151 122* NEUTOPHILPCT 64.52 64.33 68.79 MONOPCT 10.81 10.98 11.45 Recent Labs Lab 10/19/17 0740 10/18/17 0153 10/17/17 0314 NA 133* 131* 135 K 4.8 4.8 5.0* CL 96* 95* 96* CO2 26 25 30 BUN 29* 35* 24 CREATININE 6.6* 8.3* 6.1* PROT 7.5 6.9 7.3 BILITOT 0.6 0.5 0.6 ALT 19 17 13 AST 27 20 20 Phosphorus: Lab Results Component Value Date PHOS 4.3 10/19/2017 Invalid input(s): LABALBU Recent Labs Lab 10/19/17 0740 10/18/17 01510/17/17 0314 MG 2.3 2.3 2.1 No results for input(s): AMYLASE in the last 168 hours. No results for input(s): PHART, PO2ART, QAL9OAH, Z4IJXUPY, BEART in the last 168 hours. Recent Labs Lab 10/19/17 0740 10/18/17 0733 10/18/17 01510/17/17200210/17/17 0314 APTT -- NO CLOT DETECTED 56* 60* < > 57* INR 2.2 3.6 -- -- -- 1.8 < > = values in this interval not displayed. No results for input(s): TSH, T3FREE, FREET4 in the last 168 hours. Recent Labs Lab 10/16/17 0758 10/16/17 0359 10/15/17 2250 TROPONINI <0.020 <0.020 <0.020 Radiology Xr Chest 1 View Result Date: 10/16/2017 1. No acute cardiopulmonary abnormality seen. 2. Left-sided dialysis catheter with tip in t he superior vena cava. RADIA Electronically signed by Douglas Ortiz MD on Oct 16 2017 1:33 AM Referring Provider Line: [phone] ID: [id number] Upper Extremity Venous Doppler Right Result Date: 10/13/2017 Known thrombus of the right internal jugular vein, extending to the stent. There is no new thrombus or extension into the right upper extremity Disposition: Home Condition: Fair Code Status: Full Code Discharge Instructions Protime-INR Standing Status: Future Standing Exp. Date: 10/19/18 C-reactive protein Standing Status: Future Standing Exp. Date: 10/19/18 Order Comments: On Mondays while on IV vancomycin CBC w/manual diff Standing Status: Future Standing Exp. Date: 10/20/18 Order Comments: On Mondays while on IV vancomycin Vancomycin, trough Standing Status: Future Standing Exp. Date: 10/19/18 Order Comments: On Mondays while on IV vancomycin Follow [place]: [place] [address] [place], [place] [address] [facility] [address] [place] [id number] In 2 weeks Medication List START taking these medications mupirocin 2 % nasal ointment QTY: 22 g Refills: 0 For diagnoses: End stage renal failure on dialysis Commonly known as: BACTROBAN Use pea sized amount in each nostril twice daily for 5 days. After applications, press side s of nose together, gently massage for 1 min. vancomycin IVPB QTY: 13 Doses Refills: 0 Commonly known as: VANCOCIN Inject 500 mg into the vein After Hemodialysis (see admin instructions) for 30 days. Dilute in appropriate volume of IV fluid and give by slow IV infusion. warfarin 4 MG tablet QTY: 30 tablet Refills: 3 Commonly known as: COUMADIN Take 1 tablet by mouth Once daily-Coumadin. CHANGE how you take these medications albuterol 108 (90 Base) MCG/ACT inhaler QTY: 1 Inhaler Refills: 1 [...] complex-vitamin c-folic acid 0.8 MG Tabs tablet QTY: 30 tablet Refills: 11 For diagnoses: ESRD (end stage renal disease) on dialysis Take 1 tablet by mouth daily. betamethasone valerate 0.1 % cream QTY: 30 g Refills: 0 Commonly known as: VALISONE Apply topically 2 (two) times daily for 7 days. budesonide-formoterol 160-4.5 MCG/ACT inhaler QTY: 2 each Refills: 0 Commonly known as: SYMBICORT Inhale 2 puffs into the lungs 2 (two) times daily. carvedilol 3.125 MG tablet QTY: 60 tablet Refills: 0 Commonly known as: COREG Take 2 tablets by mouth 2 (two) times daily with meals. Cholecalciferol 2000 units Tabs Refills: 0 fluticasone-salmeterol 250-50 MCG/DOSE QTY: 60 each Refills: 0 Commonly known as: ADVAIR DISKUS Inhale 1 puff into the lungs 2 (two) times daily. HYDROcodone-acetaminophen 5-325 MG per tablet Refills: 0 Commonly known as: NORCO levothyroxine 75 MCG tablet Refills: 0 Commonly known as: SYNTHROID montelukast 10 MG tablet QTY: 30 tablet Refills: 0 Commonly known as: SINGULAIR Take 1 tablet by mouth nightly. ondansetron 8 MG disintegrating tablet Refills: 0 Commonly known as: ZOFRAN-ODT sevelamer 800 MG tablet QTY: 300 tablet Refills: 5 For diagnoses: ESRD (end stage renal disease) on dialysis Commonly known as: RENVELA take 3 tablets by mouth three times a day WITH MEALS AND 1 TABLET WITH SNACKS sodium bicarbonate 650 MG tablet Refills: 0 You might also be taking other medications not listed above. If you have questions about an y of your other medications, talk to the person who prescribed them or your Primary Care Pro vider. Where to Get Your Medications These medications were sent to [facility] [facility] [place] [address] [facility] [id number] warfarin 4 MG tablet You can get these medications from any pharmacy Bring a paper prescription for each of these medications mupirocin 2 % nasal ointment vancomycin IVPB Discharge took 35 minutes, to include final examination, discussion of admission, and prepa ration of prescriptions, instructions for on-going care, follow-up and documentation of disc harge summary. Simone Roblero MD 10/19/2017 9:34 AM documented in this encounter Medications at Time of Discharge + + + +---------+ + + | Medication | Sig | Dispensed | Refills | Start | End Date | | | | | | Date | | + + + +---------+ + + | albuterol (PROAIR | 2 puffs inhaled | | 0 | 03/07/ | | | HFA) 90 mcg/puff | [...] + + | carvedilol (COREG) | Take 2 tablets by | | 0 | 07/25/19 | | | 3.125 mg tablet | mouth 2 (two) times | | | 18 | | | | daily with meals. | | | | | + + [...] | 0 | /14/20 | | | ointment | to affected [...] tablet by mouth | | 0 | /14/20 | | | (ATARAX) 25 MG | [...] +---------+ + + | warfarin | Take 1 tablet by | | 0 | 10/20/19 | | | (COUMADIN) 4 MG | mouth Once | | | 18 | | | tablet | daily-Coumadin. | | | | | + + + +---------+ + + documented as of this encounter Progress Notes Cee Transrehan, Provider Unknown - 10/19/2017 2:55 PM PDTFormatting of this note m ight be different from the original. Case Management by Dashawn Jones RN at 10/19/17 7565 Author: Dashawn Jones RN Service: (none) Author Type: Registered Nurse Filed: 10/21/17 1042 Date of Service: 10/19/17 7026 Status: Signed Muffler Tender: Dashawn Jones RN (Registered Nurse) Post Discharge Note: Received email from cyber ops planner on the weekend that patient insi sted on leaving over the weekend and certain discharge services were not able to be finalize d due to the weekend. The CM on the weekend faxed the Vanco script to [facility] in [place]. I called and spoke wi rodrigo Orozco and they confirmed getting the script. The spoke with Dr. Soria about it and he approved it, so the Vanco is set up. I also called and spoke with Alvarado at the pt's PCP office and explained the situation and that he needs INR/Coumadin management. She stated she will let the provider know and they w ill either forest logistics manager his coumadin or refer him to [place]'s coumadin clinic for management . I gave them my number in case they need any more info. At this time everything is in place . onver quique Transaction, Provider Unknown - 10/19/2017 2:34 PM PDT Nurse Progress Note by Sharon Chapman RN at 10/19/17 1434 Author: Sharon Chapman RN Service: Nephrology Author Type: Registered Nurse Filed: 10/19/17 1436 Date of Service: 10/19/17 1434 Status: Signed Muffler Tender: Sharon Chapman RN (Registered Nurse) Prim HARDIK Sher called and requesting HD cath dressing need to be change due to its peeling off. Dressing peeling off and cleansed with chloraprep, new biopatch placed and dressed wit h tegaderm onver quique Transaction, Provider Unknown - 10/19/2017 1:41 PM PDT Nurse Progress Note by Nikky Ball RN at 10/19/17 1341 Author: Nikky Ball RN Service: (none) Author Type: Registered Nurse Filed: 10/19/17 1343 Date of Service: 10/19/17 1341 Status: Signed Muffler Tender: Nikky Ball RN (Registered Nurse) Patient discharging home. His sister is here to pick him up, and I reviewed the AVS and pr escriptions with them. His HD catheter dressing needs to be changed prior to discharge. I spoke with the dialysis nurse, Sharon and she will send a nurse to change it. Report given stefanie Guaman RN. Nikky Ball RN 10/19/2017 1:43 PM onver quique Transaction, Provider Unknown - 10/19/2017 11:39 AM PDT Case Management by Deidre Westfall RN at 10/19/17 6336 Author: Deidre Westfall RN Service: (none) Author Type: Registered Nurse Filed: 10/19/17 9447 Date of Service: 10/19/17 1132 Status: Addendum Muffler Tender: Deidre Westfall RN (Registered Nurse) Related Notes: Original Note by Deidre Westfall RN (Registered Nurse) filed at 10/19/17 123 7 Pt ready for d/c today 1) pt Needing IV Vanco abx with his HD. Tc to [facility] [phone], per their voi ce mail, they are closed today. Called the local [facility] and they confirmed [facility] enter closed. Faxed IV vanco script to [facility] [phone] so they can f/u on Sat. Tc to Dr Lerner, who doesn't feel it's safe to d/c pt home unlesss we have verificiation [facility] has received script and will administer vanco. Pt will have to stay here till Saturday. Notified primary RN and pt. Pt states his ride will be here soon and he wants to be d/c, he wants to speak with hospitalist about being d/c today. 1230: Addendum: pt wants to leave regardless. primary RN has notified hospitalist. Pt will be given his Vanco script to take with him to [facility]. Tc to [facility] CM, left VM t o f/u with pt on Saturday regarind setting up vanco with his HD. 2) coumadin set up. Pt lives in [place], his PCP will have to make referral to [facility] coumadin clinic. PCP and coumadin clinic closed over . Per previous CM notes, pt's PC P is Dr Lofton with [facility]. [facility] ([phone]). Tc to [facility] to f/u with pt on Saturday/Saturday for INR check. Pt will take his coumadin script to his PCP Mitzi Elsie Yang MD - 10/19/2017 8:47 AM PDT Progress Notes by Elsie Lerner MD at 10/19/1753 Author: Elsie Lerner MD Service: Infectious Disease Author Type: Physician Filed: 10/19/17 0641 Date of Service: 10/19/17846 Status: Signed Muffler Tender: Elsie Lerner MD (Physician) [facility]: Infectious Disease Progress Note Hospital Day: LOS: 12 days Post-Op Day: * No surgery found * SUBJECTIVE Patient Summary: Re: Follow-up on MRSA bacteremia, AV fistula infection Please refer to Dr. Cervantes's prior consult note Chart reviewed Assumed ID care on 10/19 Events Overnight: Afebrile and hemodynamically stable. No chills or sweats. States that he has no upper extremity pain for the past couple of days No chest pain, dyspnea, palpitations No abdominal pain, nausea, vomiting or diarrhea No tinnitus or changes in his hearing Scheduled Medications allopurinol 100 mg Oral Daily amLODIPine 10 mg Oral Daily aspirin 81 mg Oral Daily with breakfast budesonide-formoterol 2 puff Inhalation 2 times daily carvedilol 6.25 mg Oral BID WC denture cleanser 1 tablet Does not apply Nightly levothyroxine 75 mcg Oral QAM AC mupirocin 1 g Nasal BID pantoprazole 40 mg Oral QAM AC pneumococcal 23-valent vaccine 0.5 mL Intramuscular Once Immunization polyethylene glycol 17 g Oral Daily senna 1 tablet Oral Daily sevelamer 800 mg Oral TID WC sodium chloride 10 mL Intravenous Q8H vancomycin 500 mg Intravenous See Admin Instructions warfarin 4 mg Oral Daily Continuous Infusions PRN Medications acetaminophen OR acetaminophen, albumin human, albuterol, dextrose, dextrose, diphenhyd rAMINE-zinc acetate, eucerin, HYDROcodone-acetaminophen, ondansetron OR ondansetron, john yethylene glycol, sodium chloride (bolus), traMADol, zolpidem OBJECTIVE Vital Signs: BP 155/66 | Pulse 78 | Temp 98.6 F (37 C) (Oral) | Resp 18 | Ht 1.702 m (5' 7.01") | Wt 78.4 kg (172 lb 13.5 oz) | SpO2 100% | BMI 27.06 kg/m Temp: [97.3 F (36.3 C)-99 F (37.2 C)] 98.6 F (37 C) (10/19 713) BP: (86-181)/(40-106) 155/66 (10/19 08) Heart Rate: [69-84] 78 (10/19 0832) Resp: [16-18] 18 (10/19 713) SpO2: [93 %-100 %] 100 % (10/19 713) Weight: [78.2 kg (172 lb 6.4 oz)-81.5 kg (179 lb 10.8 oz)] 78.4 kg (172 lb 13.5 oz) (10/19 222) Physical Exam Vital signs have been reviewed Gen.: Pleasant male, not in distress HEENT: Normocephalic. Anicteric sclerae. Conjunctival pallor noted. No nasal mucosal lesion s. Grossly normal hearing. Moist oral mucosa with no oral thrush or ulcers. Missing teeth wi th caries on remaining teeth. Supple neck with no cervical lymphadenopathy Hemodialysis catheter at the left IJ - no signs of infection Lungs: No adventitious breath sounds Cardiovascular: Normal rate. Regular rhythm. No murmur or rubs Abdomen: No distention. Soft. No tenderness or palpable masses No inflamed looking joints Skin: Dry skin, particularly at upper extremities with thickened skin/papules, no erythema. There are areas of excoriation. No purulent drainage or fluctuance noted. Suture at the rig ht upper extremity noted. Neurologic: Oriented 3. Motor strength intact upper and lower extremities Psychiatric: Quite appreciative for his medical care DATA CBC: Lab Results Component Value Date WBC 7.39 10/18/2017 RBC 3.02 (L) 10/18/2017 HGB 8.7 (L) 10/18/2017 HCT 26.8 (L) 10/18/2017 MCV 88.9 10/18/2017 MCH 28.8 10/18/2017 MCHC 32.4 10/18/2017 RDW 55.6 (H) 10/18/2017 PLT 176 10/18/2017 MPV 8.3 10/18/2017 DIFFTYPE AUTOMATED 10/18/2017 WBC: Lab Results Component Value Date WBC 7.39 10/18/2017 NEUTABSMAN 6.38 02/17/2017 NEUTROABS 4.77 10/18/2017 NEUTROMAN 96 02/17/2017 LYMPHOABS 0.27 (L) 02/17/2017 LYMPHOMAN 4 02/17/2017 LYMPHSABS 0.76 (L) 10/18/2017 LYMPHOPCT 10.21 10/18/2017 MONOABSMAN 0.20 09/08/2016 MONOMAN 2 09/08/2016 MONOPCT 10.81 10/18/2017 EOSINOABS 0.2 07/06/2012 EOSINOMAN 1 07/06/2012 EOSABS 1.03 (H) 10/18/2017 EOSPCT 13.86 10/18/2017 BASOABSMAN 0.1 05/01/2012 BASOSABS 0.05 10/18/2017 BASOSMAN 1 05/01/2012 BASOPCT 0.60 10/18/2017 PLTEST DECREASED 10/16/2017 BANDSPCT 11 09/07/2016 NRBC 1 (H) 05/02/2012 METAABS 0.1 (H) 03/17/2014 METAPCT 1 03/17/2014 COMDIFF SLIDE SCANNED, AGREES WITH AUTOMATED RESULTS. 04/30/2016 CMP: Lab Results Component Value Date NA 131 (L) 10/18/2017 K 4.8 10/18/2017 CL 95 (L) 10/18/2017 CO2 25 10/18/2017 ANIONGAP 16 10/18/2017 GLUF 195 (H) 10/18/2017 BUN 35 (H) 10/18/2017 CREATININE 8.3 (H) 10/18/2017 BCR 4 10/18/2017 CA 7.4 (L) 10/18/2017 CA 6.1 (L) 04/02/2012 PROT 6.9 10/18/2017 ALB 2.7 (L) 10/18/2017 GLOB 4.2 10/18/2017 BILITOT 0.5 10/18/2017 ALP 77 10/18/2017 AST 20 10/18/2017 ALT 17 10/18/2017 EGFR 7 (L) 10/18/2017 Component Latest Ref Rng & Units 10/14/2017 10/18/2017 8:05 PM 1:53 AM VANCOMYCIN,RANDOM ug/mL 20.39 20.46 Lab Results Component Value Date CRP 9.3 (H) 10/07/2017 Lab Results Component Value Date ESR 36 (H) 10/07/2017 Lab Results Component Value Date INR 2.2 10/19/2017 INR 3.6 10/18/2017 INR 1.8 10/17/2017 PROTIME SPECIMEN CLOTTED, SAMPLE TO BE REDRAWN 10/08/2016 Microbiology data: 10/07 MRSA nasal PCR positive 10/07 abscess culture with no growth; Gram stain showed no organisms with 1+ WBCs 10/07 and 18 blood cultures with no growth PROBLEM LIST Principal Problem: 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HCC) Active Problems: Metabolic acidosis Hypoalbuminemia Diabetes mellitus with ESRD (end-stage renal disease) HTN (hypertension) ESRD (end stage renal disease) on dialysis Anemia of chronic kidney failure Gout Staphylococcus aureus bacteremia Superior vena caval stenosis SVC syndrome ASSESSMENT & PLAN 1. Severe right upper extremity skin and soft tissue infectionsecondary to MRSA Upper extremity induration, severe pain have improved His arm pain is a combination of thrombosis and infection. Patient's status postAV fistulogram and evidence of occluded right subclavian and innomin ate venous stents with angioplasty and recanalization on 10/11/17 Suggest 6 weeks of IV vancomycin from 10/07 2. AV fistula infection 3. Possible septic thrombophlebitis 4. Fluid collection, cultures no growth, likely hematoma. 5. End-stage renal disease on dialysis 6. 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 MRSA bacteremia. Blood cultures have been negative since 10/07. Vanco "trough" on 10/18 was 20 8. Right shoulder pain, swelling, decreased range of motion. Negative MRI of the right shou lder. Case discussed with Dr. Roblero and Dr. Mayberry Social Work consulted: I have placed in orders for vancomycin 500 mg IV with HD on Sat/Sat /Sat until 11/18 with CBC, CRP, vanco level on Mondays ID ff up in 2 weeks Code Status: Full Code ELSIE LERNER MD 10/19/2017 onversion Pate saction, Provider Unknown - 10/18/2017 10:47 AM PDTFormatting of this note might be differen t from the original. Progress Notes by Zonia Clinton RPH at 10/18/17 104 Author: Zonia Clinton RPH Service: Pharmacy Author Type: Pharmacist Filed: 10/18/171046 Date of Service: 10/18/171046 Status: Signed Muffler Tender: Zonia Clinton RPH (Pharmacist) Clinical Pharmacy Note: Vancomycin Day 12 Goal Trough: 10-20 mcg/mL Current dose: 500 mg IV following each hemodialysis Last random level: 20.46 mcg/mL 10/18 @ 0153 Serum creatinine: 8.3 mg/dL (H) 10/18/17 015 Estimated creatinine clearance: 10.4 mL/min (A). Plan: Will send up supplemental dose of 500 mg IV for administration in the last hour of he modialysis today. Next random level ordered on 10/21 with am labs. Pharm. LivanD. alvor son, Douglas Woodard MD - 10/18/2017 6:54 AM PDT Progress Notes by KRISTEL Ku at 10/18/17 0654 Author: KRISTEL Ku Service: Hospitalist Author Type: Resident-Y2 Filed: 10/18/172001 Date of Service: 10/18/17653 Status: Attested Addendum Muffler Tender: KRISTEL Ku (Resident-Y3) Related Notes: Original Note by KRISTEL Ku (Resident-Y3) filed at 10/18/17 1 553 Cosigner: Simone Roblero MD at 10/18/172119 Attestation signed by Simone Roblero MD at 10/18/172119 I have seen and examined the patient and agree with residents note. PROGRESS NOTE Pt: Carol Potter AGE/SEX: 52 y.o. male ROOM: [facility]423- PCP: ANDRY LOFTON : 1965 PATIENT SUMMARY This is a 52-year-old male with an extensive and complex past medical history including end -stage renal disease secondary to diabetic nephropathy, diabetes mellitus type II, anemia of chronic renal failure, SVC stenosis, and hypertension who presents to the hospital with rig ht upper extremity pain and swelling. He was recently admitted to [facility] the end of July 13 for presumed abscess distal to the AV fistula. He returns again with worsening pain and e jay of the right upper extremity. Due to this he has missed dialysis for a week. He did hav e blood cultures drawn at his dialysis center which then grew gram-positive cocci. SUBJECTIVE Patient doing very well this AM, no pain reported, very thankful for the care he has receiv ed. OBJECTIVE Temp: [97 F (36.1 C)-98.4 F (36.9 C)] 98.1 F (36.7 C) (10/18 1500) BP: (86-175)/(40-106) 150/79 (10/18 1500) Heart Rate: [69-82] 73 (10/18 1500) Resp: [16-18] 16 (10/18 1500) SpO2: [94 %-100 %] 94 % (10/18 1500) Weight: [78.2 kg (172 lb 6.4 oz)-81.5 kg (179 lb 10.8 oz)] 78.2 kg (172 lb 6.4 oz) (10/18 1245) Physical Exam Constitutional: In bed, receiving dialysis, seahawks hat present, he was impressed with his bowel movement HENT: Head: Normocephalic and atraumatic. Right Ear: External ear normal. Left Ear: External ear normal. Mouth/Throat: No oropharyngeal exudate. Poor dentition Eyes: Conjunctivae are normal. No scleral icterus. Neck: Neck is short and obese, no noted stridor Cardiovascular: Normal rate and regular rhythm. Left tunneled dialysis catheter present, area of insertion is CDI Pulmonary/Chest: Effort normal. No respiratory distress. Abdomina/Gl: Soft. He exhibits no distension. There is no tenderness. Musculoskeletal: Arms symmetric with full ROM, no evidence of pain, one can begin to see the outline of a fi stula present in the RUE Neurological: Awake and alert, patient is very enthusiastic and happy this morning Skin: Patient skin somewhat dry, he has non-erythematous papules with some evidence of excoriatio n over his upper extremities and chest,his bilateral lower extremities he has dry scaly dark plaques Recent Results (from the past 24 hour(s)) APTT Collection Time: 10/17/17 8:03 PM Result Value Ref Range APTT 60 (H) 23 - 32 seconds APTT Collection Time: 10/18/17 1:52 AM Result Value Ref Range APTT 56 (H) 23 - 32 seconds Comprehensive metabolic panel Collection Time: 10/18/17 1:53 AM Result Value Ref Range SODIUM 131 (L) 135 - 145 mmol/L POTASSIUM 4.8 3.5 - 4.9 mmol/L CHLORIDE 95 (L) 99 - 109 mmol/L CO2 25 23 - 32 mmol/L ANION GAP AGAP 16 5 - 20 mmol/L GLUCOSE 195 (H) 65 - 99 mg/dL BUN 35 (H) 8 - 25 mg/dL CREATININE 8.3 (H) 0.70 - 1.30 mg/dL BUN/CREAT 4 CALCIUM 7.4 (L) 8.5 - 10.5 mg/dL TOTAL PROTEIN 6.9 6.3 - 8.2 g/dL Albumin 2.7 (L) 3.6 - 5.0 g/dL GLOBULIN 4.2 1.3 - 4.9 g/dL A/G 0.6 (L) 1.0 - 2.4 TBIL 0.5 0.1 - 1.5 mg/dL ALK PHOS 77 35 - 115 U/L AST 20 10 - 45 U/L ALT 17 10 - 65 U/L EGFR 7 (L) >60 mL/min/1.73m2 CBC W/Auto Diff (Reflex to Manual) Collection Time: 10/18/17 1:53 AM Result Value Ref Range WBC 7.39 3.80 - 11.00 K/uL RBC 3.02 (L) 4.20 - 5.70 M/uL HGB 8.7 (L) 13.2 - 17.0 g/dL HCT 26.8 (L) 39.0 - 50.0 % MCV 88.9 80.0 - 100.0 fl MCH 28.8 27.0 - 34.0 pg MCHC 32.4 32.0 - 35.5 g/dL RDW SD 55.6 (H) 37 - 53 fl PLT 176 150 - 400 K/uL MPV 8.3 fl DIFF TYPE AUTOMATED NEUTROPHILS 64.52 % LYMPHOCYTES 10.21 % MONOCYTES 10.81 % EOSINOPHILS 13.86 % BASOPHILS 0.60 % NEUTROPHILS ABS 4.77 1.90 - 7.40 K/uL LYMPHOCYTES ABS 0.76 (L) 1.00 - 3.90 K/uL MONOCYTES ABS 0.80 0.00 - 0.80 K/uL EOSINOPHILS ABS 1.03 (H) 0.00 - 0.50 K/uL BASOPHILS ABS 0.05 0.00 - 0.10 K/uL Magnesium Collection Time: 10/18/17 1:53 AM Result Value Ref Range MAGNESIUM 2.3 1.7 - 2.4 mg/dL Phosphorus Collection Time: 10/18/17 1:53 AM Result Value Ref Range PHOSPHORUS 5.5 (H) 2.3 - 4.8 mg/dL Vancomycin, random Collection Time: 10/18/17 1:53 AM Result Value Ref Range VANCOMYCIN,RANDOM 20.46 ug/mL APTT Collection Time: 10/18/17 7:33 AM Result Value Ref Range APTT NO CLOT DETECTED 23 - 32 seconds Protime-INR Collection Time: 10/18/17 7:33 AM Result Value Ref Range INR 3.6 MEDICATIONS allopurinol 100 mg Oral Daily amLODIPine 10 mg Oral Daily aspirin 81 mg Oral Daily with breakfast budesonide-formoterol 2 puff Inhalation 2 times daily carvedilol 6.25 mg Oral BID WC denture cleanser 1 tablet Does not apply Nightly levothyroxine 75 mcg Oral QAM AC mupirocin 1 g Nasal BID pantoprazole 40 mg Oral QAM AC pneumococcal 23-valent vaccine 0.5 mL Intramuscular Once Immunization polyethylene glycol 17 g Oral Daily senna 1 tablet Oral Daily sevelamer 800 mg Oral TID WC sodium bicarbonate 1,300 mg Oral BID sodium chloride 10 mL Intravenous Q8H vancomycin 500 mg Intravenous See Admin Instructions [START ON 10/19/2017] warfarin 4 mg Oral Daily PRN: acetaminophen OR acetaminophen, albumin human, albuterol, dextrose, dextrose, diphenhyd rAMINE-zinc acetate, eucerin, HYDROcodone-acetaminophen, ondansetron OR ondansetron, john yethylene glycol, sodium chloride (bolus), traMADol, zolpidem ASSESSMENT & PLAN 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 Cultures thus far are negative to date. He has be en known to grow MRSA on previous cultures. ID is on board. White blood cell count is normal . Patient will likely be discharged home on 500 mg of vancomycin after each dialysis session . - Infectious disease is on board, appreciate recommendations - Continue Vancomycin, will check vancomycin level per ID - AM CBC ESRD: Patient has end-stage renal disease and receives dialysis Mondays, Wednesdays, and . Receiving dialysis per nephrology - Appreciate nephrology's management - AM CMP w/Mg, Phos - Dialysis per nephrology - Appropriate renal diet Thrombosis of subclavian stent w/SVC syndrome: Patient had a stent placed in his subclavian vein in September 2016 by interventional radiology. Continues to improve. INR is supratherapeut ic today. - Discontinue heparin, hold warfarin for today, resume tomorrow 4 mg - do not plan to discharge until INR is therapeutic - Continue renal diabetic diet DMII: Patient has a diagnosis of diabetes mellitus type II with diabetic nephropathy. His l ast A1c was 5.5. Patient does not take any antidiabetic medications at home. - Diabetic diet - Continue to monitor POCT glucose HTN: Controlled Gout: Continue allopurinol Hypothyroidism: Continue levothyroxine Anemia of chronic renal insufficiency: Stable continue monitor Dietary: Dietary has been consult and will provide education for appropriate renal diet. Problem list: Principal Problem: 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HCC) Active Problems: Metabolic acidosis Hypoalbuminemia Diabetes mellitus with ESRD (end-stage renal disease) HTN (hypertension) ESRD (end stage renal disease) on dialysis Anemia of chronic kidney failure Gout Staphylococcus aureus bacteremia Superior vena caval stenosis SVC syndrome Active comorbid conditions include: - essential hypertension, with renal disease (with CKD stage 5 or ESRD) - renal disease, CKD (ESRD) - nutritional anemia - COPD - mild intermittent asthma - diabetes (type 2 controlled (Hgb A1C < 6.5) with complications,) - PUD, past history of gastric ulcer - hypothyroidism Length of stay: 11 days Code status: Full Disposition: Inpatient Douglas Barrow MD-R2 10/18/2017 3:35 PM onversion Tr ansaction, Provider Unknown - 10/17/2017 3:58 PM PDTFormatting of this note might be differ ent from the original. Pharmacy Note by Nicky Diaz RPH at 10/17/17 2631 Author: Nicky Diaz RPH Service: Pharmacy Author Type: Pharmacist Filed: 10/17/17 9416 Date of Service: 10/17/179 Status: Signed Muffler Tender: Nicky Diaz RPH (Pharmacist) Vancomycin Monitoring: Patient received dialysis again today however has a history of holding onto vancomycin desp ite HD Will hold giving a dose today and will order a level with AM labs to assure vancomcyin is b eing cleared If level is <20 can give a vancomycin dose after dialysis tomorrow (Wednesday 10/18) Nicky Diaz-PharmD Dwain Ahuja MD - 10/17/2017 11:55 AM PDTFormatting of this note might be differe nt from the original. Progress Notes by Dwain Lima MD at 10/17/17 3961 Author: Dwain Lima MD Service: Infectious Disease Author Type: Physician Filed: 10/17/17 4537 Date of Service: 10/17/17 1379 Status: Signed Muffler Tender: Dwain Lima MD (Physician) [facility] Service: Infectious Diseases Progress Note Hospital Day: LOS: 10 days Post-Op Day: * No surgery found * CC: Follow-up on MRSA bacteremia, AV fistula infection SUBJECTIVE/OVERNIGHT EVENTS Patient reports improvement in his right upper extremity swelling and pain. The patient did have an interventional procedure for fistulogram and angioplasty on the . The patient is afebrile, reports no other complaints. REVIEW OF SYSTEMS GI: denies diarrhea, Constitutional: denies fever and chills and Integumentary: denies skin rash MEDICATIONS: allopurinol 100 mg Oral Daily amLODIPine 10 mg Oral Daily aspirin 81 mg Oral Daily with breakfast budesonide-formoterol 2 puff Inhalation 2 times daily carvedilol 6.25 mg Oral BID WC denture cleanser 1 tablet Does not apply Nightly levothyroxine 75 mcg Oral QAM AC mupirocin 1 g Nasal BID pantoprazole 40 mg Oral QAM AC pneumococcal 23-valent vaccine 0.5 mL Intramuscular Once Immunization polyethylene glycol 17 g Oral Daily senna 1 tablet Oral Daily sevelamer 800 mg Oral TID WC sodium bicarbonate 1,300 mg Oral BID sodium chloride 10 mL Intravenous Q8H vancomycin 500 mg Intravenous See Admin Instructions warfarin 5 mg Oral Daily heparin 50 units/mL 11 Units/kg/hr (10/17/17 0407) PRN Medications acetaminophen OR acetaminophen, albumin human, albuterol, dextrose, dextrose, diphenhyd rAMINE-zinc acetate, eucerin, heparin (porcine) 5000 unit/0.5mL, heparin (porcine) 5000 unit /0.5mL, HYDROcodone-acetaminophen, ondansetron OR ondansetron, polyethylene glycol, traM ADol, zolpidem PHYSICAL EXAM Vital Signs: BP 101/47 (BP Location: Right leg) | Pulse 76 | Temp 97.7 F (36.5 C) (Oral) | Resp 1 6 | Ht 1.702 m (5' 7.01") | Wt 81.6 kg (179 lb 14.3 oz) | SpO2 96% | BMI 28.17 kg/m Temp (24hrs), Av.4 F (36.9 C), Min:97 F (36.1 C), Max:99.3 F (37.4 C) General Appearance: Alert, cooperative, no distress and obese Head: Normocephalic, without obvious abnormality, atraumatic. Lips, mucosa, and tongue normal; dentition normal; no thrush present. Eyes: PERRL, conjunctiva/corneas clear, EOM's intact. Throat: Oropharynx clear without exudates Neck: Supple, symmetrical, trachea midline, no adenopathy; thyroid: no enlargement/tenderness/nodules; no carotid bruit or JVD Back: Symmetric, no curvature, ROM normal, no CVA tenderness Lungs: Clear to auscultation bilaterally, respirations unlabored Chest Wall: No tenderness or deformity Heart: Regular rate and rhythm, S1 and S2 normal, no murmur noted, rub or gallop. Abdomen: Soft, non-tender, bowel sounds active all four quadrants, no masses, no organomegaly Extremities: bilateral upper extremity edema, improved. Pulses: 2+ and symmetric all extremities Skin: Skin color, texture, turgor normal, no rashes or lesions Lymph nodes: Cervical, supraclavicular, inguinal and axillary nodes normal Neurologic: : normal without focal findings, mental status, speech normal, alert and oriented x3, P ERLA and reflexes normal and symmetric Normal genitalia. No Newman catheter. Venous access: Dialysis catheter No signs of infection. LABS: All labs reviewed. CBC: Lab Results Component Value Date WBC 7.37 10/17/2017 RBC 3.19 (L) 10/17/2017 HGB 9.4 (L) 10/17/2017 HCT 28.3 (L) 10/17/2017 MCV 88.7 10/17/2017 MCH 29.5 10/17/2017 MCHC 33.3 10/17/2017 RDW 58.2 (H) 10/17/2017 PLT 151 10/17/2017 MPV 7.8 10/17/2017 DIFFTYPE AUTOMATED 10/17/2017 CMP: Lab Results Component Value Date NA 135 10/17/2017 K 5.0 (H) 10/17/2017 CL 96 (L) 10/17/2017 CO2 30 10/17/2017 ANIONGAP 14 10/17/2017 GLUF 92 10/17/2017 BUN 24 10/17/2017 CREATININE 6.1 (H) 10/17/2017 BCR 4 10/17/2017 CA 8.0 (L) 10/17/2017 CA 6.1 (L) 04/02/2012 PROT 7.3 10/17/2017 ALB 2.9 (L) 10/17/2017 GLOB 4.4 10/17/2017 BILITOT 0.6 10/17/2017 ALP 74 10/17/2017 AST 20 10/17/2017 ALT 13 10/17/2017 EGFR 10 (L) 10/17/2017 MICROBIOLOGY Results Procedure Component Value Units Date/Time Blood culture, 1 of 2 [[id number]] Collected: 10/09/171709 Specimen: Blood from Blood Updated: 10/15/17644 Specimen Description BLOOD SPECIAL REQUESTS SITE NOT GIVEN CULTURE NO GROWTH 6 DAYS Blood culture, 2 of 2 [[id number]] Collected: 10/09/171739 Specimen: Blood from Blood Updated: 10/15/1745 Specimen Description BLOOD SPECIAL REQUESTS SITE NOT GIVEN CULTURE NO GROWTH 6 DAYS IMAGING Reviewed images of : No new images for review PROBLEM LIST Principal Problem: 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HCC) Active Problems: Metabolic acidosis Hypoalbuminemia Diabetes mellitus with ESRD (end-stage renal disease) HTN (hypertension) ESRD (end stage renal disease) on dialysis Anemia of chronic kidney failure Gout Staphylococcus aureus bacteremia Chest pain, unspecified Superior vena caval stenosis SVC syndrome ASSESSMENT & PLAN The patient is a 52 y.o.-year-old male with the following problems: 1. Severe right upper extremity skin and soft tissue infectionsecondary to MRSA Symptoms are slowly improving, both swelling of the right upper extremity, induration, marnie re pain. His arm pain, largely a combination of thrombosis and infection. Patient's status post AV fistulogram and evidence of occluded right subclavian and innomina te venous stents with angioplasty and recanalization on 10/11/17 The patient will complete a minimum of 4 weeks of antibiotic therapy with vancomycin from 0 10/06/17. 2. AV fistula infection 3. Possible septic thrombophlebitis 4. Fluid collection, cultures no growth so far, likely hematoma. 5. End-stage renal disease on dialysis 6. 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 MRSA bacteremia. Blood cultures have been negative on several opportunities. The patient will continue vancomycin, and reduce dose to 500 mg after hemodialysis. Discussed with clin ica pharmacist today. Patient will likely need 500 mg after each hemodialysis session upon discharge. 8. Right shoulder pain, swelling, decreased range of motion. Negative MRI of the right shou lder. Maintain right upper extremity elevation. Discussed with Dr. Minor. Dr. Lerner will take over ID service on October 19. Dwain Cervantes MD, MPH Infectious Diseases 10/17/2017 onvers ion Transaction, Provider Unknown - 10/17/2017 10:45 AM PDT Pharmacy Note by Haider Bhatt RPH at 10/17/17 1045 Author: Haider Bhatt RPH Service: Pharmacy Author Type: Pharmacist Filed: 10/17/17 1045 Date of Service: 10/17/17 104 Status: Signed Muffler Tender: Haider Bhatt RPH (Pharmacist) Vancomycin notes: Dialysis ordered MON - WED - FRI No dose of Vancomycin today. alvor son, Douglas Woodard MD - 10/17/2017 7:08 AM PDT Progress Notes by Douglas Barrow MD-R3 at 10/17/17 0708 Author: Douglas Barrow MD-R3 Service: Hospitalist Author Type: Resident-Y2 Filed: 10/17/17 6755 Date of Service: 10/17/17 0708 Status: Attested Muffler Tender: Douglas Barrow MD-R3 (Resident-Y3) Cosigner: Omer Minor MD at 1819 Attestation signed by Omer Minor MD at 10/17/17 1820 Patient seen and examined along with residents. He continues to improve and ambulated aroun d 250 feet yesterday with PT. Chest pain, arm pain and arm swelling are considerably less to day. Patient is back on IV vancomycin that will be continued till 10/06/[address] Cervantes. Saurabh copeland discharge home in 1-2 days. I agree with the progress note of Dr. Barrow. PROGRESS NOTE Pt: Carol Potter AGE/SEX: 52 y.o. male ROOM: [address] [place] [address] PCP: ANDRY LOFTON : 1965 PATIENT SUMMARY This is a 52-year-old male with an extensive and complex past medical history including end -stage renal disease secondary to diabetic nephropathy, diabetes mellitus type II, anemia of chronic renal failure, SVC stenosis, and hypertension who presents to the hospital with rig ht upper extremity pain and swelling. He was recently admitted to [facility] the end of July 13 for presumed abscess distal to the AV fistula. He returns again with worsening pain and e jay of the right upper extremity. Due to this he has missed dialysis for a week. He did hav e blood cultures drawn at his dialysis center which then grew gram-positive cocci. SUBJECTIVE NSONE reported, patient was doing quite well this morning and was back to his usual jovial self that I remember from his previous admission. He had minimal pain and said his arm was doing very well. OBJECTIVE Temp: [97 F (36.1 C)-99.3 F (37.4 C)] 97 F (36.1 C) (10/17 1614) BP: (81-157)/(42-118) 100/51 (10/17 1614) Heart Rate: [76-83] 76 (10/17 111) Resp: [16-18] 18 (10/17 1614) SpO2: [95 %-100 %] 96 % (10/17 1614) Weight: [81.6 kg (179 lb 14.3 oz)-83.6 kg (184 lb 4.9 oz)] 81.6 kg (179 lb 14.3 oz) (10/17 1114) Physical Exam Constitutional: Patient was sitting on the edge of his bed wearing a green Seahawks hat looking at his ball oons, he was all smiles HENT: Head: Normocephalic and atraumatic. Right Ear: External ear normal. Left Ear: External ear normal. Mouth/Throat: No oropharyngeal exudate. No facial edema noted, poor dentition Eyes: Conjunctivae are normal. No scleral icterus. Neck: Neck is short and obese, no noted stridor Cardiovascular: Normal rate and regular rhythm. Left tunneled dialysis catheter present, no bleeding no evidence of infection Pulmonary/Chest: Effort normal. No respiratory distress. Pain resolved Musculoskeletal: Right upper extremity has improved significantly, it appears to be of normal size, thrill s till present. Neurological: Awake and alert, patient is very enthusiastic and happy this morning Skin: Patient skin somewhat dry, he has non-erythematous papules with some evidence of excoriatio n over his upper extremities and chest, he has been scratching these and they have begun to bleed, his bilateral lower extremities he has dry scaly dark plaques Recent Results (from the past 24 hour(s)) aPTT Collection Time: 10/16/17 6:40 PM Result Value Ref Range APTT 78 (HH) 23 - 32 seconds Comprehensive metabolic panel Collection Time: 10/17/17 3:14 AM Result Value Ref Range SODIUM 135 135 - 145 mmol/L POTASSIUM 5.0 (H) 3.5 - 4.9 mmol/L CHLORIDE 96 (L) 99 - 109 mmol/L CO2 30 23 - 32 mmol/L ANION GAP AGAP 14 5 - 20 mmol/L GLUCOSE 92 65 - 99 mg/dL BUN 24 8 - 25 mg/dL CREATININE 6.1 (H) 0.70 - 1.30 mg/dL BUN/CREAT 4 CALCIUM 8.0 (L) 8.5 - 10.5 mg/dL TOTAL PROTEIN 7.3 6.3 - 8.2 g/dL Albumin 2.9 (L) 3.6 - 5.0 g/dL GLOBULIN 4.4 1.3 - 4.9 g/dL A/G 0.7 (L) 1.0 - 2.4 TBIL 0.6 0.1 - 1.5 mg/dL ALK PHOS 74 35 - 115 U/L AST 20 10 - 45 U/L ALT 13 10 - 65 U/L EGFR 10 (L) >60 mL/min/1.73m2 CBC W/Auto Diff (Reflex to Manual) Collection Time: 10/17/17 3:14 AM Result Value Ref Range WBC 7.37 3.80 - 11.00 K/uL RBC 3.19 (L) 4.20 - 5.70 M/uL HGB 9.4 (L) 13.2 - 17.0 g/dL HCT 28.3 (L) 39.0 - 50.0 % MCV 88.7 80.0 - 100.0 fl MCH 29.5 27.0 - 34.0 pg MCHC 33.3 32.0 - 35.5 g/dL RDW SD 58.2 (H) 37 - 53 fl PLT 151 150 - 400 K/uL MPV 7.8 fl DIFF TYPE AUTOMATED NEUTROPHILS 64.33 % LYMPHOCYTES 12.17 % MONOCYTES 10.98 % EOSINOPHILS 12.24 % BASOPHILS 0.28 % NEUTROPHILS ABS 4.74 1.90 - 7.40 K/uL LYMPHOCYTES ABS 0.90 (L) 1.00 - 3.90 K/uL MONOCYTES ABS 0.81 (H) 0.00 - 0.80 K/uL EOSINOPHILS ABS 0.90 (H) 0.00 - 0.50 K/uL BASOPHILS ABS 0.02 0.00 - 0.10 K/uL MORPHOLOGY 2+ Magnesium Collection Time: 10/17/17 3:14 AM Result Value Ref Range MAGNESIUM 2.1 1.7 - 2.4 mg/dL Phosphorus Collection Time: 10/17/17 3:14 AM Result Value Ref Range PHOSPHORUS 4.8 2.3 - 4.8 mg/dL Protime-INR Collection Time: 10/17/17 3:14 AM Result Value Ref Range INR 1.8 aPTT Collection Time: 10/17/17 3:14 AM Result Value Ref Range APTT 57 (H) 23 - 32 seconds POCT glucose Collection Time: 10/17/17 10:13 AM Result Value Ref Range GLUCOSE,POC SCREEN 159 (H) 65 - 99 mg/dL APTT Collection Time: 10/17/17 11:46 AM Result Value Ref Range APTT 42 (H) 23 - 32 seconds MEDICATIONS allopurinol 100 mg Oral Daily amLODIPine 10 mg Oral Daily aspirin 81 mg Oral Daily with breakfast budesonide-formoterol 2 puff Inhalation 2 times daily carvedilol 6.25 mg Oral BID WC denture cleanser 1 tablet Does not apply Nightly levothyroxine 75 mcg Oral QAM AC mupirocin 1 g Nasal BID pantoprazole 40 mg Oral QAM AC pneumococcal 23-valent vaccine 0.5 mL Intramuscular Once Immunization polyethylene glycol 17 g Oral Daily senna 1 tablet Oral Daily sevelamer 800 mg Oral TID WC sodium bicarbonate 1,300 mg Oral BID sodium chloride 10 mL Intravenous Q8H vancomycin 500 mg Intravenous See Admin Instructions warfarin 5 mg Oral Daily heparin 50 units/mL 13 Units/kg/hr (10/17/17 1300) PRN: acetaminophen OR acetaminophen, albumin human, albuterol, dextrose, dextrose, diphenhyd rAMINE-zinc acetate, eucerin, heparin (porcine) 5000 unit/0.5mL, heparin (porcine) 5000 unit /0.5mL, HYDROcodone-acetaminophen, ondansetron OR ondansetron, polyethylene glycol, traM ADol, zolpidem ASSESSMENT & PLAN 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 Cultures thus far are negative to date. He has be en known to grow MRSA on previous cultures. ID is on board. White blood cell count is normal . Patient will likely be discharged home on 500 mg of vancomycin after each dialysis session . - Infectious disease is on board, appreciate recommendations - Continue Vancomycin, will check vancomycin level in the morning. - AM CBC ESRD: Patient has end-stage renal disease and receives dialysis Mondays, Wednesdays, and . Receiving dialysis per nephrology- Appreciate nephrology's management - AM CMP w/Mg, Phos - Dialysis per nephrology - Appropriate renal diet Thrombosis of subclavian stent w/SVC syndrome: Patient had a stent placed in his subclavian vein in September 2016 by interventional radiology. Continues to improve. INR is 1.8 today. Pul ses are present and he is moving his arms freely. - Patient is to be on heparin, continue warfarin 5 mg today, though this is risky as the pa tient has a history of noncompliance. - do not plan to discharge until INR is therapeutic - Continue renal diabetic diet Chest Pain: Resolved. DMII: Patient has a diagnosis of diabetes mellitus type II with diabetic nephropathy. His l ast A1c was 5.5. Patient does not take any antidiabetic medications at home. - Diabetic diet - Continue to monitor POCT glucose HTN: Controlled Gout: Continue allopurinol Hypothyroidism: Continue levothyroxine Anemia of chronic renal insufficiency: Stable continue monitor Dietary: Dietary has been consult and will provide education for appropriate renal diet. Problem list: Principal Problem: 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HCC) Active Problems: Metabolic acidosis Hypoalbuminemia Diabetes mellitus with ESRD (end-stage renal disease) HTN (hypertension) ESRD (end stage renal disease) on dialysis Anemia of chronic kidney failure Gout Staphylococcus aureus bacteremia Chest pain, unspecified Superior vena caval stenosis SVC syndrome Active comorbid conditions include: - essential hypertension, with renal disease (with CKD stage 5 or ESRD) - renal disease, CKD (ESRD) - nutritional anemia - COPD - mild intermittent asthma - diabetes (type 2 controlled (Hgb A1C < 6.5) with complications,) - PUD, past history of gastric ulcer - hypothyroidism Length of stay: 10 days Code status: Full Disposition: Inpatient Douglas Barrow MD-R2 10/17/2017 5:52 PM onversion Tr ansaction, Provider Unknown - 10/16/2017 3:10 PM PDTFormatting of this note might be differ ent from the original. Case Management by Kalpana Triana RN at 10/16/17 151 Author: Kalpana Triana RN Service: (none) Author Type: Registered Nurse Filed: 10/16/17 1513 Date of Service: 10/16/171509 Status: Signed Muffler Tender: Kalpana Triana RN (Registered Nurse) Discharge planning- Patient still ok to return home with spouse when medically ready. CM to continue to follow clinical course for needs. KALPANA TRIANA RN Case Management [phone] onver quique Transaction, Provider Unknown - 10/16/2017 12:48 PM PDT Nurse Progress Note by Praveena Cordova RN at 10/16/17 4029 Author: Praveena Cordova RN Service: (none) Author Type: Registered Nurse Filed: 10/16/17 1241 Date of Service: 10/16/17 124 Status: Signed Muffler Tender: Praveena Cordova RN (Registered Nurse) Results for aPtt at 61, no change on heparin gtt at this time per protocol. alvor son, Douglas Woodard MD - 10/16/2017 6:46 AM PDT Progress Notes by Douglas Barrow MD-R3 at 10/16/17 0646 Author: DAMIÁN KuR3 Service: Hospitalist Author Type: Resident-Y2 Filed: 10/16/17 0941 Date of Service: 10/16/17645 Status: Attested Muffler Tender: DAMIÁN KuR3 (Resident-Y3) Cosigner: Omer Minor MD at 1623 Attestation signed by mOer Minor MD at 10/16/17 1623 Patient seen and examined along with residents. He had chest pain last night that was thoug h to be musculoskeletal in nature as he has reproducible tenderness over right lower chest w all. Arm swelling is improving and patient is more ambulatory today. He has a small spike in the temperature last night and has mild leukocytosis. Will monitor closely. On vancomycin p er ID. I agree with the progress note of Dr. Barrow. PROGRESS NOTE Pt: Carol Potter AGE/SEX: 52 y.o. male ROOM: [facility]423- PCP: ANDRY LOFTON : 1965 PATIENT SUMMARY This is a 52-year-old male with an extensive and complex past medical history including end -stage renal disease secondary to diabetic nephropathy, diabetes mellitus type II, anemia of chronic renal failure, SVC stenosis, and hypertension who presents to the hospital with rig ht upper extremity pain and swelling. He was recently admitted to [facility] the end of July 13 for presumed abscess distal to the AV fistula. He returns again with worsening pain and e jay of the right upper extremity. Due to this he has missed dialysis for a week. He did hav e blood cultures drawn at his dialysis center which then grew gram-positive cocci. SUBJECTIVE Patient c/o CP overnight, assembler wet wash evaluated and pain was primarily around the right nipp le. CXR was unremarkable, EKG showed 1st degree AV block and Troponin negative. He was in te ars this AM cause he doesn't know what is going on, he was reassured about his clinical stat us. OBJECTIVE Temp: [98.2 F (36.8 C)-99.8 F (37.7 C)] 98.6 F (37 C) (10/16 746) BP: (83-135)/(43-95) 92/44 (10/16 746) Heart Rate: [64-80] 80 (10/16 08) Resp: [18-20] 20 (10/16 746) SpO2: [92 %-100 %] 92 % (10/16 746) Weight: [82.3 kg (181 lb 7 oz)-84.8 kg (186 lb 15.2 oz)] 82.3 kg (181 lb 7 oz) (10/15 1724 ) Physical Exam Constitutional: Was sitting up on the edge of his bed, he then started crying, he is just concerned about s tuff HENT: Head: Normocephalic and atraumatic. Right Ear: External ear normal. Left Ear: External ear normal. Mouth/Throat: No oropharyngeal exudate. No facial edema noted, poor dentition Eyes: Conjunctivae are normal. No scleral icterus. Neck: Neck is short and obese, no noted stridor Cardiovascular: Normal rate, regular rhythm and normal heart sounds. Left tunneled dialysis catheter present, no bleeding no evidence of infection Pulmonary/Chest: Effort normal and breath sounds normal. Has pain over his right nipple with deep inspiration Abdomina/Gl: Soft. He exhibits no distension. There is no tenderness. Musculoskeletal: Arms both appear normal and symmetric, no TTP of RUE, no evidence of erythema, Neurological: Awake and alert, however he is dysphoric Skin: Patient skin somewhat dry, he has non-erythematous papules with some evidence of excoriatio n over his upper extremities and chest, he has been scratching these and they have begun to bleed, his bilateral lower extremities he has dry scaly dark plaques Recent Results (from the past 24 hour(s)) APTT Collection Time: 10/15/17 2:18 PM Result Value Ref Range APTT NO CLOT DETECTED 23 - 32 seconds APTT Collection Time: 10/15/17 3:52 PM Result Value Ref Range APTT 52 (H) 23 - 32 seconds APTT Collection Time: 10/15/17 10:50 PM Result Value Ref Range APTT 58 (H) 23 - 32 seconds Troponin I Collection Time: 10/15/17 10:50 PM Result Value Ref Range TROPONIN I <0.020 0.00 - 0.10 ng/mL EKG STANDARD 12 LEAD Collection Time: 10/15/17 11:45 PM Result Value Ref Range Ventricular Rate 78 BPM Atrial Rate 78 BPM P-R Interval 212 ms QRS Duration 94 ms Q-T Interval 408 ms QTC Calculation (Bezet) 465 ms Calculated P [place] 27 degrees Calculated R [place] 11 degrees Calculated T [place] 84 degrees Diagnosis Sinus rhythm with 1st degree A-V block Low voltage QRS Borderline ECG When compared with ECG of 08-OCT-2017 06:16, Nonspecific T wave abnormality, improved in Anterior leads Comprehensive metabolic panel Collection Time: 10/16/17 3:59 AM Result Value Ref Range SODIUM 134 (L) 135 - 145 mmol/L POTASSIUM 5.5 (H) 3.5 - 4.9 mmol/L CHLORIDE 98 (L) 99 - 109 mmol/L CO2 26 23 - 32 mmol/L ANION GAP AGAP 16 5 - 20 mmol/L GLUCOSE 94 65 - 99 mg/dL BUN 27 (H) 8 - 25 mg/dL CREATININE 8.0 (H) 0.70 - 1.30 mg/dL BUN/CREAT 3 CALCIUM 7.9 (L) 8.5 - 10.5 mg/dL TOTAL PROTEIN 7.3 6.3 - 8.2 g/dL Albumin 3.0 (L) 3.6 - 5.0 g/dL GLOBULIN 4.3 1.3 - 4.9 g/dL A/G 0.7 (L) 1.0 - 2.4 TBIL 0.5 0.1 - 1.5 mg/dL ALK PHOS 70 35 - 115 U/L AST 29 10 - 45 U/L ALT 20 10 - 65 U/L EGFR 8 (L) >60 mL/min/1.73m2 CBC W/Auto Diff (Reflex to Manual) Collection Time: 10/16/17 3:59 AM Result Value Ref Range WBC 12.27 (H) 3.80 - 11.00 K/uL RBC 3.50 (L) 4.20 - 5.70 M/uL HGB 9.8 (L) 13.2 - 17.0 g/dL HCT 30.7 (L) 39.0 - 50.0 % MCV 87.7 80.0 - 100.0 fl MCH 28.0 27.0 - 34.0 pg MCHC 31.9 (L) 32.0 - 35.5 g/dL RDW SD 57.3 (H) 37 - 53 fl PLT 122 (L) 150 - 400 K/uL MPV 8.3 fl DIFF TYPE AUTOMATED NEUTROPHILS 68.79 % LYMPHOCYTES 8.05 % MONOCYTES 11.45 % EOSINOPHILS 10.98 % BASOPHILS 0.73 % NEUTROPHILS ABS 8.44 (H) 1.90 - 7.40 K/uL LYMPHOCYTES ABS 0.99 (L) 1.00 - 3.90 K/uL MONOCYTES ABS 1.41 (H) 0.00 - 0.80 K/uL EOSINOPHILS ABS 1.35 (H) 0.00 - 0.50 K/uL BASOPHILS ABS 0.09 0.00 - 0.10 K/uL MORPHOLOGY 1+ Platelet Estimate DECREASED Magnesium Collection Time: 10/16/17 3:59 AM Result Value Ref Range MAGNESIUM 2.3 1.7 - 2.4 mg/dL Phosphorus Collection Time: 10/16/17 3:59 AM Result Value Ref Range PHOSPHORUS 5.4 (H) 2.3 - 4.8 mg/dL Troponin I Collection Time: 10/16/17 3:59 AM Result Value Ref Range TROPONIN I <0.020 0.00 - 0.10 ng/mL APTT Collection Time: 10/16/17 5:23 AM Result Value Ref Range APTT 78 (HH) 23 - 32 seconds Protime-INR Collection Time: 10/16/17 5:23 AM Result Value Ref Range INR 1.2 Troponin I Collection Time: 10/16/17 7:58 AM Result Value Ref Range TROPONIN I <0.020 0.00 - 0.10 ng/mL MEDICATIONS allopurinol 100 mg Oral Daily amLODIPine 10 mg Oral Daily aspirin 81 mg Oral Daily with breakfast budesonide-formoterol 2 puff Inhalation 2 times daily carvedilol 6.25 mg Oral BID WC levothyroxine 75 mcg Oral QAM AC mupirocin 1 g Nasal BID pantoprazole 40 mg Oral QAM AC pneumococcal 23-valent vaccine 0.5 mL Intramuscular Once Immunization polyethylene glycol 17 g Oral Daily senna 1 tablet Oral Daily sevelamer 800 mg Oral TID WC sodium bicarbonate 1,300 mg Oral BID sodium chloride 10 mL Intravenous Q8H vancomycin 500 mg Intravenous See Admin Instructions warfarin 5 mg Oral Daily heparin 50 units/mL 14 Units/kg/hr (10/16/17 0742) PRN: acetaminophen OR acetaminophen, albumin human, albuterol, dextrose, dextrose, diphenhyd rAMINE-zinc acetate, eucerin, heparin (porcine) 5000 unit/0.5mL, heparin (porcine) 5000 unit /0.5mL, HYDROcodone-acetaminophen, ondansetron OR ondansetron, polyethylene glycol, traM ADol, zolpidem ASSESSMENT & PLAN 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 Cultures thus far are negative to date. He has be en known to grow MRSA on previous cultures. ID is on board. White blood cell count is normal . We are awaiting stabilization of the vancomycin level. - Infectious disease is on board, appreciate recommendations - Continue Vancomycin, continues to be supratherapeutic, administer per nephrology recommen dation - AM CBC ESRD: Patient has end-stage renal disease and receives dialysis Mondays, Wednesdays, and Fr . Metabolic acidosis has resolved, will receive dialysis per nephrology. - Appreciate nephrology's management - AM CMP w/Mg, Phos - Dialysis per nephrology - Appropriate renal diet Thrombosis of subclavian stent w/SVC syndrome: Patient had a stent placed in his subclavian vein in September 2016 by interventional radiology. He seems to have improved this a.m. and his pain seems to be under control with tramadol and prn hydrocodone. INR is 1.2 today. Pulses are present and he is moving his arms freely. - Patient is to be on heparin, continue warfarin 5 mg today, though this is risky as the [place] has a history of noncompliance. - do not plan to discharge until INR is therapeutic - Continue renal diabetic diet Chest Pain: This seems to be most likely reproducible and not cardiac in nature. His trops have been negative and EKG did not show evidence of ischemia. Will continue to monitor. DMII: Patient has a diagnosis of diabetes mellitus type II with diabetic nephropathy. His l ast A1c was 5.5. Patient does not take any antidiabetic medications at home. - Diabetic diet - Continue to monitor POCT glucose HTN: Controlled Gout: Continue allopurinol Hypothyroidism: Continue levothyroxine Anemia of chronic renal insufficiency: Stable continue monitor Dietary: Dietary has been consult and will provide education for appropriate renal diet. Problem list: Principal Problem: 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HCC) Active Problems: Metabolic acidosis Hypoalbuminemia Diabetes mellitus with ESRD (end-stage renal disease) HTN (hypertension) ESRD (end stage renal disease) on dialysis Anemia of chronic kidney failure Gout Staphylococcus aureus bacteremia Chest pain, unspecified Superior vena caval stenosis SVC syndrome Active comorbid conditions include: - essential hypertension, with renal disease (with CKD stage 5 or ESRD) - renal disease, CKD (ESRD) - nutritional anemia - COPD - mild intermittent asthma - diabetes (type 2 controlled (Hgb A1C < 6.5) with complications,) - PUD, past history of gastric ulcer - hypothyroidism Length of stay: 9 days Code status: Full Disposition: Inpatient Douglas Barrow MD-R2 10/16/2017 9:41 AM onversion Tr ansaction, Provider Unknown - 10/15/2017 5:13 PM PDTFormatting of this note might be differ ent from the original. Pharmacy Note by Brenda Goins RPH at 10/15/171712 Author: Brenda Goins RPH Service: Pharmacy Author Type: Pharmacist Filed: 10/15/171712 Date of Service: 10/15/171712 Status: Signed Muffler Tender: Brenda Goins RPH (Pharmacist) Vanco Monitoring Random vanco level yesterday after HD came back high. Per telephone order from Dr. Meghan uriarte, have decreased dose to be given after each dialysis to vancomycin 500mg. Doses to be g iven after HD only (MWF schedule). Nothing to be given when patient has ultrafiltration. No levels necessary. Brenda Goins RPh 10/15/2017 4:34 PM onver quique Transaction, Provider Unknown - 10/15/2017 3:34 PM PDT Progress Notes by Tosha Mclain RD at 10/15/17 1534 Author: Tosha Mclain RD Service: (none) Author Type: Registered Dietitian Filed: 10/15/17 1534 Date of Service: 10/15/17 1534 Status: Signed Muffler Tender: Tosha Mclain RD (Registered Dietitian) 10/15/17 1524 Subjective Timepoint Admit Pt c/o Pt triggered for LOS. Pt admitted for AV fistula infection. Pt receiving HD at time of visit. 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 Fluid / Beverage Intake Oral Fluids Amount 1500 ml FR Food Intake Amount of Food Pt reports he has a great appetite, 100% of breakfast and lunch and he has b een eating 100% of 3 meals per day. Type of Food / Meals Renal diet Meal / Snack Pattern Per charting pt has been consuming 100% of meals. Nutrition-Focused Physical Findings Extremities, Muscles and Bones Nonpitting BUE edema noted. Digestive System (Mouth to Rectum) Pt declines chewing/swallowing issues. Anthropometrics Weight change Pt's BMI is 29.4 and pt is 126% of IBW. Pt reports no recent wt changes and h is dry wt is 82 kg. Most recent wt from 10/14: 86.2 kg. Wt is up 1.3 kg since admit. Per I/O' s pt is 3.3 L fluid negative. Continue to monitor wt trend. Biochemical data, medical tests, and procedures reviewed Biochemical data, medical tests, and procedures reviewed Na 134 (L) and Cr 6.7 (H). Recommendations Recommended energy needs Continue renal diet as ordered. Encourage po intake with protein r ich foods. Supplements prn. Monitor and follow as indicated. Nutritional Risk Nutritional risk Low / moderate Follow up date 10/21/[address] alvor son, Douglas Woodard MD - 10/15/2017 1:33 PM PDT Progress Notes by DAMIÁN KuR3 at 10/15/17 3900 Author: DAMIÁN KuR3 Service: Hospitalist Author Type: Resident-Y2 Filed: 10/16/17 0661 Date of Service: 10/15/17 1333 Status: Attested Addendum Muffler Tender: Douglas Barrow MD-R3 (Resident-Y3) Related Notes: Original Note by Douglas Barrow MD-R3 (Resident-Y3) filed at 10/15/17 1 342 Cosigner: Omer Minor MD at 10/16/17 1618 Attestation signed by Omer Minor MD at 10/16/17 1618 (Updated) Patient seen and examined. All labs noted. Patient still has arm pain but swelling seems to be improving. Patient will be dialyzed tomorrow. He has minimal mobility and will consult P T. I agree with the progress notes of Dr. Barrow. PROGRESS NOTE Pt: Carol Potter AGE/SEX: 52 y.o. male ROOM: [address] [place] [address] PCP: ANDRY LOFTON : 1965 PATIENT SUMMARY This is a 52-year-old male with an extensive and complex past medical history including end -stage renal disease secondary to diabetic nephropathy, diabetes mellitus type II, anemia of chronic renal failure, SVC stenosis, and hypertension who presents to the hospital with rig ht upper extremity pain and swelling. He was recently admitted to [facility] the end of July 13 for presumed abscess distal to the AV fistula. He returns again with worsening pain and e jay of the right upper extremity. Due to this he has missed dialysis for a week. He did hav e blood cultures drawn at his dialysis center which then grew gram-positive cocci. SUBJECTIVE Patient was sound asleep this AM, but easily awoken. When awoken he began to complain of pa in, however when palpating his arm, he did not seem to be in significant pain. He says he fe els like he is swelling again. OBJECTIVE Temp: [97.8 F (36.6 C)-98.7 F (37.1 C)] 98.2 F (36.8 C) (10/15 1145) BP: (82-134)/(50-62) 134/62 (10/15 1145) Heart Rate: [62-98] 75 (10/15 1145) Resp: [16-20] 20 (10/15 1145) SpO2: [95 %-100 %] 95 % (10/15 1145) Physical Exam Constitutional: Woke up, slightly groggy, and was moaning in pain, however was very comfortable appearing p rior to being awoken HENT: Head: Normocephalic and atraumatic. Right Ear: External ear normal. Left Ear: External ear normal. Mouth/Throat: No oropharyngeal exudate. Facial edema is much improved, actually non-existent from prior exams, no noted swelling of the neck Eyes: Conjunctivae are normal. No scleral icterus. Neck: Neck is short and obese, no noted stridor Cardiovascular: Normal rate, regular rhythm and normal heart sounds. Left tunneled dialysis catheter present, no bleeding no evidence of infection Pulmonary/Chest: Effort normal and breath sounds normal. Abdomina/Gl: Soft. He exhibits no distension. There is no tenderness. There was no tenderness palpation on this morning's exam, abdomen was soft Musculoskeletal: Edema appears improved from prior exams, does not appear to be worsening, pulse was noted a s biphasic with a doppler Neurological: Initially asleep but easily aroused and moving all 4 extremities Skin: Patient skin somewhat dry, he has non-erythematous papules with some evidence of excoriatio n over his upper extremities and chest, he has been scratching these and they have begun to bleed, his bilateral lower extremities he has dry scaly dark plaques Recent Results (from the past 24 hour(s)) Vancomycin, random Collection Time: 10/14/17 8:05 PM Result Value Ref Range VANCOMYCIN,RANDOM 20.39 ug/mL Comprehensive metabolic panel Collection Time: 10/15/17 5:56 AM Result Value Ref Range SODIUM 134 (L) 135 - 145 mmol/L POTASSIUM 4.6 3.5 - 4.9 mmol/L CHLORIDE 96 (L) 99 - 109 mmol/L CO2 30 23 - 32 mmol/L ANION GAP AGAP 13 5 - 20 mmol/L GLUCOSE 78 65 - 99 mg/dL BUN 21 8 - 25 mg/dL CREATININE 6.7 (H) 0.70 - 1.30 mg/dL BUN/CREAT 3 CALCIUM 8.2 (L) 8.5 - 10.5 mg/dL TOTAL PROTEIN 7.5 6.3 - 8.2 g/dL Albumin 3.0 (L) 3.6 - 5.0 g/dL GLOBULIN 4.5 1.3 - 4.9 g/dL A/G 0.7 (L) 1.0 - 2.4 TBIL 0.7 0.1 - 1.5 mg/dL ALK PHOS 75 35 - 115 U/L AST 25 10 - 45 U/L ALT 18 10 - 65 U/L EGFR 9 (L) >60 mL/min/1.73m2 CBC W/Auto Diff (Reflex to Manual) Collection Time: 10/15/17 5:56 AM Result Value Ref Range WBC 6.69 3.80 - 11.00 K/uL RBC 3.44 (L) 4.20 - 5.70 M/uL HGB 9.8 (L) 13.2 - 17.0 g/dL HCT 30.4 (L) 39.0 - 50.0 % MCV 88.3 80.0 - 100.0 fl MCH 28.3 27.0 - 34.0 pg MCHC 32.1 32.0 - 35.5 g/dL RDW SD 57.3 (H) 37 - 53 fl PLT 146 (L) 150 - 400 K/uL MPV 8.0 fl DIFF TYPE AUTOMATED NEUTROPHILS 67.46 % LYMPHOCYTES 10.52 % MONOCYTES 7.52 % EOSINOPHILS 14.04 % BASOPHILS 0.46 % NEUTROPHILS ABS 4.51 1.90 - 7.40 K/uL LYMPHOCYTES ABS 0.70 (L) 1.00 - 3.90 K/uL MONOCYTES ABS 0.50 0.00 - 0.80 K/uL EOSINOPHILS ABS 0.94 (H) 0.00 - 0.50 K/uL BASOPHILS ABS 0.03 0.00 - 0.10 K/uL MORPHOLOGY 2+ Magnesium Collection Time: 10/15/17 5:56 AM Result Value Ref Range MAGNESIUM 2.2 1.7 - 2.4 mg/dL Phosphorus Collection Time: 10/15/17 5:56 AM Result Value Ref Range PHOSPHORUS 4.8 2.3 - 4.8 mg/dL APTT Collection Time: 10/15/17 5:56 AM Result Value Ref Range APTT 31 23 - 32 seconds Protime-INR Collection Time: 10/15/17 5:56 AM Result Value Ref Range INR 1.0 MEDICATIONS allopurinol 100 mg Oral Daily amLODIPine 10 mg Oral Daily budesonide-formoterol 2 puff Inhalation 2 times daily carvedilol 6.25 mg Oral BID WC levothyroxine 75 mcg Oral QAM AC mupirocin 1 g Nasal BID pneumococcal 23-valent vaccine 0.5 mL Intramuscular Once Immunization sevelamer 800 mg Oral TID WC sodium bicarbonate 1,300 mg Oral BID sodium chloride 10 mL Intravenous Q8H vancomycin 750 mg Intravenous See Admin Instructions warfarin 5 mg Oral Daily heparin 50 units/mL 17 Units/kg/hr (10/15/17 8867) PRN: acetaminophen OR acetaminophen, albumin human, albuterol, dextrose, dextrose, diphenhyd rAMINE, eucerin, heparin (porcine) 5000 unit/0.5mL, heparin (porcine) 5000 unit/0.5mL, HYDRO codone-acetaminophen, ondansetron OR ondansetron, polyethylene glycol, traMADol, zolpide m ASSESSMENT & PLAN 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 Cultures thus far are negative to date. He has be en known to grow MRSA on previous cultures. ID is on board. White blood cell count is normal . We are awaiting stabilization of the vancomycin level. - Infectious disease is on board, appreciate recommendations - Continue Vancomycin, continues to be supratherapeutic, administer per nephrology recommen dation - AM CBC ESRD: Patient has end-stage renal disease and receives dialysis Mondays, Wednesdays, and . Metabolic acidosis has resolved, will receive dialysis per nephrology. - Appreciate nephrology's management - AM CMP w/Mg, Phos - Dialysis per nephrology - Appropriate renal diet Thrombosis of subclavian stent w/SVC syndrome: Patient had a stent placed in his subclavian vein in September 2016 by interventional radiology. He seems to have improved this a.m. and his pain seems to be under control with tramadol and prn hydrocodone. INR is 1.0 today. Pulses are present and not diminished as noted with doppler - Patient is to be on heparin, continue warfarin 5 mg today, though this is risky as the pa [facility] has a history of noncompliance. - do not plan to discharge until INR is therapeutic - Continue renal diabetic diet V. tach: No reported Vtach events DMII: Patient has a diagnosis of diabetes mellitus type II with diabetic nephropathy. His l ast A1c was 5.5. Patient does not take any antidiabetic medications at home. - Diabetic diet - Continue to monitor POCT glucose HTN: Controlled Gout: Continue allopurinol Hypothyroidism: Continue levothyroxine Anemia of chronic renal insufficiency: Stable continue monitor Dietary: Dietary has been consult and will provide education for appropriate renal diet. Problem list: Principal Problem: 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HCC) Active Problems: Metabolic acidosis Hypoalbuminemia Diabetes mellitus with ESRD (end-stage renal disease) HTN (hypertension) ESRD (end stage renal disease) on dialysis Anemia of chronic kidney failure Gout Staphylococcus aureus bacteremia Chest pain, unspecified Superior vena caval stenosis SVC syndrome Active comorbid conditions include: - essential hypertension, with renal disease (with CKD stage 5 or ESRD) - renal disease, CKD (ESRD) - nutritional anemia - COPD - mild intermittent asthma - diabetes (type 2 controlled (Hgb A1C < 6.5) with complications,) - PUD, past history of gastric ulcer - hypothyroidism Length of stay: 8 days Code status: Full Disposition: Inpatient Douglas Barrow MD-R2 10/15/2017 1:42 PM Dwain Ahuja MD - 10/15/2017 11:19 AM PDT Progress Notes by Dwain Lima MD at 10/15/17 285 Author: Dwain Lima MD Service: Infectious Disease Author Type: Physician Filed: 10/16/17 1756 Date of Service: 10/15/171118 Status: Signed Muffler Tender: Dwain Lima MD (Physician) [facility] Service: Infectious Diseases Progress Note Hospital Day: LOS: 8 days Post-Op Day: * No surgery found * CC: Follow-up on MRSA bacteremia, AV fistula infection SUBJECTIVE/OVERNIGHT EVENTS Patient's right upper extremity infection and edema are slowly improving. The patient has b een afebrile. The patient's has had some issues with vancomycin dosing due to his end-stage renal disease status. Vancomycin random level today is still above 20. The patient denies diarrhea. REVIEW OF SYSTEMS GI: denies diarrhea, Constitutional: denies fever and chills and Integumentary: denies skin rash MEDICATIONS: allopurinol 100 mg Oral Daily amLODIPine 10 mg Oral Daily budesonide-formoterol 2 puff Inhalation 2 times daily carvedilol 6.25 mg Oral BID WC levothyroxine 75 mcg Oral QAM AC mupirocin 1 g Nasal BID pneumococcal 23-valent vaccine 0.5 mL Intramuscular Once Immunization sevelamer 800 mg Oral TID WC sodium bicarbonate 1,300 mg Oral BID sodium chloride 10 mL Intravenous Q8H vancomycin 750 mg Intravenous See Admin Instructions warfarin 5 mg Oral Daily heparin 50 units/mL 17 Units/kg/hr (10/15/17 3279) PRN Medications acetaminophen OR acetaminophen, albumin human, albuterol, dextrose, dextrose, diphenhyd rAMINE, eucerin, heparin (porcine) 5000 unit/0.5mL, heparin (porcine) 5000 unit/0.5mL, HYDRO codone-acetaminophen, ondansetron OR ondansetron, polyethylene glycol, traMADol, zolpide m PHYSICAL EXAM Vital Signs: BP 114/57 (BP Location: Left leg) | Pulse 71 | Temp 98.7 F (37.1 C) (Axillary) | Res p 20 | Ht 1.702 m (5' 7.01") | Wt 86.2 kg (190 lb) | SpO2 95% | BMI 29.75 kg/m Temp (24hrs), Av.9 F (37.2 C), Min:98.5 F (36.9 C), Max:99.8 F (37.7 C) General Appearance: Alert, cooperative, no distress and obese Head: Normocephalic, without obvious abnormality, atraumatic. Lips, mucosa, and tongue normal; dentition normal; no thrush present. Eyes: PERRL, conjunctiva/corneas clear, EOM's intact. Throat: Oropharynx clear without exudates Neck: Supple, symmetrical, trachea midline, no adenopathy; thyroid: no enlargement/tenderness/nodules; no carotid bruit or JVD Back: Symmetric, no curvature, ROM normal, no CVA tenderness Lungs: Clear to auscultation bilaterally, respirations unlabored Chest Wall: No tenderness or deformity Heart: Regular rate and rhythm, S1 and S2 normal, no murmur noted, rub or gallop. Abdomen: Soft, non-tender, bowel sounds active all four quadrants, no masses, no organomegaly Extremities: extensive edema, erythema and pain to palpation to the right upper extremi ty persists, although improved compared to admission and a few days ago. Pulses: 2+ and symmetric all extremities Skin: Skin color, texture, turgor normal, no rashes or lesions Lymph nodes: Cervical, supraclavicular, inguinal and axillary nodes normal Neurologic: : normal without focal findings, mental status, speech normal, alert and oriented x3, LUCI and reflexes normal and symmetric Normal genitalia. No Newman catheter. Venous access: Dialysis catheter No signs of infection. LABS: All labs reviewed. CBC: Lab Results Component Value Date WBC 12.27 (H) 10/16/2017 RBC 3.50 (L) 10/16/2017 HGB 9.8 (L) 10/16/2017 HCT 30.7 (L) 10/16/2017 MCV 87.7 10/16/2017 MCH 28.0 10/16/2017 MCHC 31.9 (L) 10/16/2017 RDW 57.3 (H) 10/16/2017 PLT 122 (L) 10/16/2017 MPV 8.3 10/16/2017 DIFFTYPE AUTOMATED 10/16/2017 CMP: Lab Results Component Value Date NA 134 (L) 10/16/2017 K 5.5 (H) 10/16/2017 CL 98 (L) 10/16/2017 CO2 26 10/16/2017 ANIONGAP 16 10/16/2017 GLUF 94 10/16/2017 BUN 27 (H) 10/16/2017 CREATININE 8.0 (H) 10/16/2017 BCR 3 10/16/2017 CA 7.9 (L) 10/16/2017 CA 6.1 (L) 04/02/2012 PROT 7.3 10/16/2017 ALB 3.0 (L) 10/16/2017 GLOB 4.3 10/16/2017 BILITOT 0.5 10/16/2017 ALP 70 10/16/2017 AST 29 10/16/2017 ALT 20 10/16/2017 EGFR 8 (L) 10/16/2017 MICROBIOLOGY Results Procedure Component Value Units Date/Time Blood culture, 1 of 2 [[id number]] Collected: 10/09/17 1710 Specimen: Blood from Blood Updated: 10/15/17 0626 Specimen Description BLOOD SPECIAL REQUESTS SITE NOT GIVEN CULTURE NO GROWTH 6 DAYS Blood culture, 2 of 2 [[id number]] Collected: 10/09/17 1740 Specimen: Blood from Blood Updated: 10/15/17 0645 Specimen Description BLOOD SPECIAL REQUESTS SITE NOT GIVEN CULTURE NO GROWTH 6 DAYS Blood Culture Set 1 [[id number]] Collected: 10/07/17 0421 Specimen: Blood from Blood Updated: 10/13/17 0738 Specimen Description BLOOD SPECIAL REQUESTS L HAND CULTURE NO GROWTH 6 DAYS Blood culture, set 2 [[id number]] Collected: 10/07/17 0447 Specimen: Blood from Blood, peripheral draw Updated: 10/13/17737 Specimen Description BLOOD, PERIPHERAL DRAW SPECIAL REQUESTS LWRIST CULTURE NO GROWTH 6 DAYS IMAGING Reviewed images of : No new images for review PROBLEM LIST Principal Problem: 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HCC) Active Problems: Metabolic acidosis Hypoalbuminemia Diabetes mellitus with ESRD (end-stage renal disease) HTN (hypertension) ESRD (end stage renal disease) on dialysis Anemia of chronic kidney failure Gout Staphylococcus aureus bacteremia Chest pain, unspecified Superior vena caval stenosis SVC syndrome ASSESSMENT & PLAN The patient is a 52 y.o.-year-old male with the following problems: 1. Severe right upper extremity skin and soft tissue infectionsecondary to MRSA Symptoms are slowly improving, both swelling of the right upper extremity, induration, marnie re pain. His arm pain, largely a combination of thrombosis and infection. Patient's status post AV fistulogram and evidence of occluded right subclavian and innomina te venous stents with angioplasty and recanalization on 10/11/17 We will allow for response to the above-mentioned intervention, if no improvement then we w ill repeat imaging of the right upper extremity. The patient will complete a minimum of 4 weeks of antibiotic therapy with vancomycin. 2. AV fistula infection 3. Possible septic thrombophlebitis 4. Fluid collection, cultures no growth so far, likely hematoma. 5. End-stage renal disease on dialysis 6. 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 MRSA bacteremia. Blood cultures have been negative on several opportunities. The patient will continue vancomycin, and reduce dose to 500 mg after hemodialysis. 8. Right shoulder pain, swelling, decreased range of motion. Negative MRI of the right shou lder. Maintain right upper extremity elevation. Discussed with Dr. Minor. Dwain Cervantes MD, MPH Infectious Diseases 10/15/2017 alvors on, Douglas Woodard MD - 10/15/2017 7:09 AM PDT Progress Notes by Douglas Barrow MD-R3 at 10/15/17 0709 Author: DAMIÁN [id number] Service: Hospitalist Author Type: Resident-Y2 Filed: 10/15/17 1017 Date of Service: 10/15/17 0709 Status: Attested Muffler Tender: DAMIÁN KuR3 (Resident-Y3) Cosigner: Khanh Rangel MD at 10/20/17 9040 Attestation signed by Khanh Rangel MD at 10/20/17 3354 I didn't supervise on this date. Note This is The progress note for 10/14/2013, I forgot to sign it yesterday. PROGRESS NOTE Pt: Carol Potter AGE/SEX: 52 y.o. male ROOM: [address] [place] [address]- PCP: ANDRY LOFTON : 1965 PATIENT SUMMARY This is a 52-year-old male with an extensive and complex past medical history including end -stage renal disease secondary to diabetic nephropathy, diabetes mellitus type II, anemia of chronic renal failure, SVC stenosis, and hypertension who presents to the hospital with rig ht upper extremity pain and swelling. He was recently admitted to [facility] the end of July 13 for presumed abscess distal to the AV fistula. He returns again with worsening pain and e jay of the right upper extremity. Due to this he has missed dialysis for a week. He did hav e blood cultures drawn at his dialysis center which then grew gram-positive cocci. SUBJECTIVE Patient was seen and examined in his room with his present. He states that his pain johnson s improved significantly. He is able to move his arm around without difficulty. He was sleep y this morning. OBJECTIVE Temp: [97.7 F (36.5 C)-98.6 F (37 C)] 98.2 F (36.8 C) (10/15 326) BP: (82-122)/(50-59) 122/58 (10/15 326) Heart Rate: [62-98] 74 (10/15 326) Resp: [16-18] 16 (10/15 326) SpO2: [96 %-100 %] 96 % (10/15 326) Physical Exam Constitutional: Appeared comfortable, was asleep but easily awoken and had a big smile on his face when he woke up HENT: Head: Normocephalic and atraumatic. Right Ear: External ear normal. Left Ear: External ear normal. Mouth/Throat: No oropharyngeal exudate. Eyes: Conjunctivae are normal. No scleral icterus. Neck: Neck is short and obese, no noted stridor Cardiovascular: Normal rate, regular rhythm and normal heart sounds. Left tunneled dialysis catheter present, no bleeding no evidence of infection Pulmonary/Chest: Effort normal and breath sounds normal. Abdomina/Gl: There was no tenderness palpation on this morning's exam, abdomen was soft Musculoskeletal: There is still edema present over the right upper extremity, however it appears to be impro roselyn, pulses are palpable, the thrill of the fistula is palpable Neurological: Initially asleep but easily aroused and moving all 4 extremities Skin: Patient skin somewhat dry, he has non-erythematous papules with some evidence of excoriatio n over his upper extremities and chest, he has been scratching these and they have begun to bleed, his bilateral lower extremities he has dry scaly dark plaques Recent Results (from the past 24 hour(s)) Vancomycin, random Collection Time: 10/14/17 8:05 PM Result Value Ref Range VANCOMYCIN,RANDOM 20.39 ug/mL APTT Collection Time: 10/15/17 5:56 AM Result Value Ref Range APTT 31 23 - 32 seconds MEDICATIONS allopurinol 100 mg Oral Daily amLODIPine 10 mg Oral Daily budesonide-formoterol 2 puff Inhalation 2 times daily carvedilol 6.25 mg Oral BID WC levothyroxine 75 mcg Oral QAM AC mupirocin 1 g Nasal BID pneumococcal 23-valent vaccine 0.5 mL Intramuscular Once Immunization sevelamer 800 mg Oral TID WC sodium bicarbonate 1,300 mg Oral BID sodium chloride 10 mL Intravenous Q8H vancomycin 750 mg Intravenous See Admin Instructions warfarin 5 mg Oral Daily heparin 50 units/mL 15 Units/kg/hr (10/15/17 0065) PRN: acetaminophen OR acetaminophen, albumin human, albuterol, dextrose, dextrose, diphenhyd rAMINE, eucerin, heparin (porcine) 5000 unit/0.5mL, heparin (porcine) 5000 unit/0.5mL, HYDRO codone-acetaminophen, ondansetron OR ondansetron, polyethylene glycol, traMADol, zolpide m ASSESSMENT & PLAN 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 Cultures thus far are negative to date. He has be en known to grow MRSA on previous cultures. ID is on board. White blood cell count is normal . - Infectious disease is on board, appreciate recommendations - Continue Vancomycin, continues to be supratherapeutic, administer per nephrology recommen dation - AM CBC ESRD w/Metabolic Acidosis: Patient has end-stage renal disease and receives dialysis Saturday s, Wednesdays, and Fridays. Metabolic acidosis has resolved, will receive dialysis per nephr ology. - Appreciate nephrology's management - AM CMP w/Mg, Phos - Dialysis per nephrology - Appropriate renal diet Thrombosis of subclavian stent w/SVC syndrome: Patient had a stent placed in his subclavian vein in September 2016 by interventional radiology. He seems to have improved this a.m. and his pain seems to be under control with tramadol. Continue monitor - Patient is to be on heparin, will add warfarin 5 mg today, though this is risky as the taylor julius has a history of noncompliance. - Continue renal diabetic diet V. tach: Patient had a 12 beat run of V. tach early this a.m. and was asymptomatic. Given t he fact that his nonsustained I am not too concerned, the patient likely does have a hyper e xcitable heart given his kidney failure. DMII: Patient has a diagnosis of diabetes mellitus type II with diabetic nephropathy. His l ast A1c was 5.5. Patient does not take any antidiabetic medications at home. - Diabetic diet - Continue to monitor POCT glucose HTN: Improving with dialysis, continue to monitor. Continue home medications. Gout: Continue allopurinol Hypothyroidism: Continue levothyroxine Anemia of chronic renal insufficiency: Stable continue monitor Dietary: Dietary has been consult and will provide education for appropriate renal diet. Problem list: Principal Problem: 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HCC) Active Problems: Metabolic acidosis Hypoalbuminemia Diabetes mellitus with ESRD (end-stage renal disease) HTN (hypertension) ESRD (end stage renal disease) on dialysis Anemia of chronic kidney failure Gout Staphylococcus aureus bacteremia Chest pain, unspecified Superior vena caval stenosis SVC syndrome Active comorbid conditions include: - essential hypertension, with renal disease (with CKD stage 5 or ESRD) - renal disease, CKD (ESRD) - nutritional anemia - COPD - mild intermittent asthma - diabetes (type 2 controlled (Hgb A1C < 6.5) with complications,) - PUD, past history of gastric ulcer - hypothyroidism Length of stay: 8 days Code status: Full Disposition: Inpatient Douglas Barrow MD-R2 10/15/2017 7:10 AM onversion Tr ansaction, Provider Unknown - 10/14/2017 9:33 PM PDTFormatting of this note might be differ ent from the original. Progress Notes by Grecia Rangel RN at 10/14/172132 Author: Grecia Rangel RN Service: (none) Author Type: Registered Nurse Filed: 10/14/172136 Date of Service: 10/14/172132 Status: Signed Muffler Tender: Grecia Rangel RN (Registered Nurse) Random vanco draw 20.39. Instructions to give after each HD session, last dose noted to be given on . Messaged Pharm and Pharm instructed to hold dose for tonight. onver quique Transaction, Provider Unknown - 10/14/2017 9:33 PM PDT Pharmacy Note by Chela Boyle RPH at 10/14/172132 Author: Chela Boyle RPH Service: Pharmacy Author Type: Pharmacist Filed: 10/14/172132 Date of Service: 10/14/172132 Status: Signed Muffler Tender: Chela Boyle RPH (Pharmacist) Vancomycin Monitoring Clinician Dosing: Pharmacy Dosing Recent Trough level: 20.39 mcg/mL Drawn: 10/14 @ 2004 Serum creatinine: 9.4 mg/dL (H) 10/14/17 0543 Estimated creatinine clearance: 9.4 mL/min (A) Plan per protocol: No dose to be given as Vancomycin random level is still high post dialysis Order trough levels:To be evaluated in the future. 10/14/2017 9:32 PM Pharmacist: Chela Boyle onver quique Transaction, Provider Unknown - 10/14/2017 11:21 AM PDT Progress Notes by Reba Roldan RPH at 10/14/171120 Author: Reba Roldan RPH Service: Pharmacy Author Type: Pharmacist Filed: 10/14/171120 Date of Service: 10/14/171120 Status: Signed Muffler Tender: Reba Roldan RPH (Pharmacist) Vancomycin Monitoring Day 8 Clinician Dosing: Pharmacy Dosing Random level with AM labs: 26.8 mcg/mL Drawn: 10/14/2017 at 0543 (AM labs) Plan per protocol: Spoke with Dr. Christianson about elevated level despite last vancomycin dose being given on 10/10 and HD session on 10/12/2017. Will hold off giving vancomycin 750mg dose today with HD session and will order random vancomycin level for [address] Christianson's recommendat ions to reassess use. HD scheduled for 1400 today per RN. Discussed plan of care with RN. Order random level: 10/14/2017 at 2000 10/14/2017 11:07 AM Pharmacist: Reba Roldan onver quique Transaction, Provider Unknown - 10/14/2017 11:21 AM PDT Progress Notes by Reba Roldan RPH at 10/14/171120 Author: Reba Roldan RPH Service: Pharmacy Author Type: Pharmacist Filed: 10/14/171120 Date of Service: 10/14/171120 Status: Signed Muffler Tender: Reba Roldan RPH (Pharmacist) Vancomycin Monitoring Day 8 Clinician Dosing: Pharmacy Dosing Random level with AM labs: 26.8 mcg/mL Drawn: 10/14/2017 at 0543 (AM labs) Plan per protocol: Spoke with Dr. Christianson about elevated level despite last vancomycin dose being given on 10/10 and HD session on 10/12/2017. Will hold off giving vancomycin 750mg dose today with HD session and will order random vancomycin level for [address] Christianson's recommendat ions to reassess use. HD scheduled for 1400 today per RN. Order random level: 10/14/2017 at 2000 10/14/2017 11:07 AM Pharmacist: Reba Roldan onver quique Transaction, Provider Unknown - 10/14/2017 11:07 AM PDT Case Management by Paty Bone RN at 10/14/17 1107 Author: Paty Bone RN Service: (none) Author Type: Registered Nurse Filed: 10/14/17 1503 Date of Service: 10/14/171106 Status: Addendum Muffler Tender: Paty Bone RN (Registered Nurse) Related Notes: Original Note by Paty Bone RN (Registered Nurse) filed at 10/14/17 1108 CM attended AM rounds. Pt will d/c on coumadin when medically ready to d/c-lives in [place] [address]. PCP Dr. Lofton at [facility] is PCP--CM will need to verify that he will follow INR l evels prior to d/c. Pt still on heparin gtt and they will bridge to coumadin. Pt may d/c on IV antbx that will likely be given with dialysis. CM to follow. DC plan home with . Meal voucher provided to by surgical health unit coordinator. Paty Bone onver quique Transaction, Provider Unknown - 10/14/2017 7:15 AM PDT Progress Notes by Grecia Rangel RN at 10/14/17714 Author: Grecia Rangel RN Service: (none) Author Type: Registered Nurse Filed: 10/14/17 0716 Date of Service: 10/14/17714 Status: Signed Muffler Tender: Grecia Rangel RN (Registered Nurse) Notified Dr Barrow @ 0700 12 beats of v-tach, no new orders at this time, pt asymptomati c alvor son, Douglas Woodard MD - 10/14/2017 6:56 AM PDT Progress Notes by DAMIÁN KuR3 at 10/14/17 0656 Author: KRISTEL Ku Service: Hospitalist Author Type: Resident-Y2 Filed: 10/14/17 1351 Date of Service: 10/14/17 0656 Status: Attested Addendum Muffler Tender: KRISTEL Ku (Resident-Y3) Related Notes: Original Note by KRISTEL Ku (Resident-Y3) filed at 10/14/17 1 349 Cosigner: Khanh Rangel MD at 10/20/17 1447 Attestation signed by Khanh Rangel MD at 10/20/17 1447 Thrombosis:SVC syndrome.Right upper extremity is less intense and less edematous, and d ecreased edema. Discussion has been made with Dr. garnica 10/09 for surgical intervention of thr ombolysis of the innominate veins in the near future. Continue with heparin. There was a run of non-sustained V-tach yesterday. Electrolytes are normal. Could be from f luid shift on Hemodialysis. Chronic kidney disease:Discussed in person with Dr. Christianson briefly today. Right upper extremity cellulitis; resolved. Continue IV treatment for bacteremia. Continue with cefepime day #4. Status post vancomycin and ceftazidime day 1. Status post thrombectomy of innominate vein, and AV fistula recanalization. Also exchange o f new hemodialysis catheter on the left IJ by dr. Garnica 10/09. Continue with IV Heparin. Pos top day #5. Will change to Coumadin from heparin on discharge. Will need Coumadin teaching. Prognosis remained guarded. Condition stable. . PROGRESS NOTE Pt: Carol Potter AGE/SEX: 52 y.o. male ROOM: [address] [place] [address] PCP: ANDRY LOFTON : 1965 PATIENT SUMMARY This is a 52-year-old male with an extensive and complex past medical history including end -stage renal disease secondary to diabetic nephropathy, diabetes mellitus type II, anemia of chronic renal failure, SVC stenosis, and hypertension who presents to the hospital with rig ht upper extremity pain and swelling. He was recently admitted to [facility] the end of July 13 for presumed abscess distal to the AV fistula. He returns again with worsening pain and e jay of the right upper extremity. Due to this he has missed dialysis for a week. He did hav e blood cultures drawn at his dialysis center which then grew gram-positive cocci. SUBJECTIVE Patient was seen and examined in his room with his present. He states that his pain johnson s improved significantly. He is able to move his arm around without difficulty. He was sleep y this morning. OBJECTIVE Temp: [97.7 F (36.5 C)-98.6 F (37 C)] 97.8 F (36.6 C) (10/14 1106) BP: (93-115)/(50-68) 105/52 (10/14 110) Heart Rate: [63-77] 71 (10/14 1106) Resp: [16-19] 16 (10/14 110) SpO2: [95 %-99 %] 98 % (10/14 110) Weight: [86.2 kg (190 lb)] 86.2 kg (190 lb) (10/14 336) Physical Exam Constitutional: Appeared comfortable, was asleep but easily awoken and had a big smile on his face when he woke up HENT: Head: Normocephalic and atraumatic. Right Ear: External ear normal. Left Ear: External ear normal. Mouth/Throat: No oropharyngeal exudate. Eyes: Conjunctivae are normal. No scleral icterus. Neck: Neck is short and obese, no noted stridor Cardiovascular: Normal rate, regular rhythm and normal heart sounds. Left tunneled dialysis catheter present, no bleeding no evidence of infection Pulmonary/Chest: Effort normal and breath sounds normal. Abdomina/Gl: There was no tenderness palpation on this morning's exam, abdomen was soft Musculoskeletal: There is still edema present over the right upper extremity, however it appears to be impro roselyn, pulses are palpable, the thrill of the fistula is palpable Neurological: Initially asleep but easily aroused and moving all 4 extremities Skin: Patient skin somewhat dry, he has non-erythematous papules with some evidence of excoriatio n over his upper extremities and chest, he has been scratching these and they have begun to bleed, his bilateral lower extremities he has dry scaly dark plaques Recent Results (from the past 24 hour(s)) Comprehensive metabolic panel Collection Time: 10/14/17 5:43 AM Result Value Ref Range SODIUM 133 (L) 135 - 145 mmol/L POTASSIUM 4.8 3.5 - 4.9 mmol/L CHLORIDE 95 (L) 99 - 109 mmol/L CO2 28 23 - 32 mmol/L ANION GAP AGAP 15 5 - 20 mmol/L GLUCOSE 91 65 - 99 mg/dL BUN 35 (H) 8 - 25 mg/dL CREATININE 9.4 (H) 0.70 - 1.30 mg/dL BUN/CREAT 4 CALCIUM 7.9 (L) 8.5 - 10.5 mg/dL TOTAL PROTEIN 6.9 6.3 - 8.2 g/dL Albumin 2.8 (L) 3.6 - 5.0 g/dL GLOBULIN 4.2 1.3 - 4.9 g/dL A/G 0.7 (L) 1.0 - 2.4 TBIL 0.6 0.1 - 1.5 mg/dL ALK PHOS 70 35 - 115 U/L AST 23 10 - 45 U/L ALT 17 10 - 65 U/L EGFR 6 (L) >60 mL/min/1.73m2 CBC W/Auto Diff (Reflex to Manual) Collection Time: 10/14/17 5:43 AM Result Value Ref Range WBC 6.44 3.80 - 11.00 K/uL RBC 3.35 (L) 4.20 - 5.70 M/uL HGB 9.4 (L) 13.2 - 17.0 g/dL HCT 29.4 (L) 39.0 - 50.0 % MCV 87.6 80.0 - 100.0 fl MCH 28.2 27.0 - 34.0 pg MCHC 32.2 32.0 - 35.5 g/dL RDW SD 55.1 (H) 37 - 53 fl PLT 143 (L) 150 - 400 K/uL MPV 7.2 fl DIFF TYPE AUTOMATED NEUTROPHILS 62.89 % LYMPHOCYTES 12.27 % MONOCYTES 8.48 % EOSINOPHILS 15.84 % BASOPHILS 0.52 % NEUTROPHILS ABS 4.05 1.90 - 7.40 K/uL LYMPHOCYTES ABS 0.79 (L) 1.00 - 3.90 K/uL MONOCYTES ABS 0.55 0.00 - 0.80 K/uL EOSINOPHILS ABS 1.02 (H) 0.00 - 0.50 K/uL BASOPHILS ABS 0.03 0.00 - 0.10 K/uL Magnesium Collection Time: 10/14/17 5:43 AM Result Value Ref Range MAGNESIUM 2.4 1.7 - 2.4 mg/dL Phosphorus Collection Time: 10/14/17 5:43 AM Result Value Ref Range PHOSPHORUS 6.3 (H) 2.3 - 4.8 mg/dL Vancomycin, trough Collection Time: 10/14/17 5:43 AM Result Value Ref Range VANCOMYCIN,TROUGH 26.8 (HH) 10 - 20 ug/mL APTT Collection Time: 10/14/17 5:43 AM Result Value Ref Range APTT 62 (H) 23 - 32 seconds MEDICATIONS allopurinol 100 mg Oral Daily amLODIPine 10 mg Oral Daily budesonide-formoterol 2 puff Inhalation 2 times daily carvedilol 6.25 mg Oral BID WC epoetin alena 20,000 Units Intravenous Once in dialysis heparin (porcine) 4,000 Units Intracatheter Once in dialysis levothyroxine 75 mcg Oral QAM AC mupirocin 1 g Nasal BID pneumococcal 23-valent vaccine 0.5 mL Intramuscular Once Immunization sevelamer 800 mg Oral TID WC sodium bicarbonate 1,300 mg Oral BID sodium chloride 10 mL Intravenous Q8H vancomycin 750 mg Intravenous See Admin Instructions warfarin 5 mg Oral Daily heparin 50 units/mL 15 Units/kg/hr (10/14/17 1030) PRN: acetaminophen OR acetaminophen, albumin human, albuterol, dextrose, dextrose, diphenhyd rAMINE, eucerin, heparin (porcine) 5000 unit/0.5mL, heparin (porcine) 5000 unit/0.5mL, HYDRO codone-acetaminophen, ondansetron OR ondansetron, polyethylene glycol, traMADol, zolpide m ASSESSMENT & PLAN 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 Cultures thus far are negative to date. He has be en known to grow MRSA on previous cultures. ID is on board. White blood cell count is normal . - Infectious disease is on board, appreciate recommendations - Continue Vancomycin, continues to be supratherapeutic, administer per nephrology recommen dation - AM CBC ESRD w/Metabolic Acidosis: Patient has end-stage renal disease and receives dialysis Saturday, Wednesdays, and Fridays. Metabolic acidosis has resolved, will receive dialysis per nephr yancy. - Appreciate nephrology's management - AM CMP w/Mg, Phos - Dialysis per nephrology - Appropriate renal diet Thrombosis of subclavian stent w/SVC syndrome: Patient had a stent placed in his subclavian vein in September 2016 by interventional radiology. He seems to have improved this a.m. and his pain seems to be under control with tramadol. Continue monitor - Patient is to be on heparin, will add warfarin 5 mg today, though this is risky as the pa julius has a history of noncompliance. - Continue renal diabetic diet V. tach: Patient had a 12 beat run of V. tach early this a.m. and was asymptomatic. Given t he fact that his nonsustained I am not too concerned, the patient likely does have a hyper e xcitable heart given his kidney failure. DMII: Patient has a diagnosis of diabetes mellitus type II with diabetic nephropathy. His l ast A1c was 5.5. Patient does not take any antidiabetic medications at home. - Diabetic diet - Continue to monitor POCT glucose HTN: Improving with dialysis, continue to monitor. Continue home medications. Gout: Continue allopurinol Hypothyroidism: Continue levothyroxine Anemia of chronic renal insufficiency: Stable continue monitor Dietary: Dietary has been consult and will provide education for appropriate renal diet. Problem list: Principal Problem: 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HCC) Active Problems: Metabolic acidosis Hypoalbuminemia Diabetes mellitus with ESRD (end-stage renal disease) HTN (hypertension) ESRD (end stage renal disease) on dialysis Anemia of chronic kidney failure Gout Staphylococcus aureus bacteremia Chest pain, unspecified Superior vena caval stenosis SVC syndrome Active comorbid conditions include: - essential hypertension, with renal disease (with CKD stage 5 or ESRD) - renal disease, CKD (ESRD) - nutritional anemia - COPD - mild intermittent asthma - diabetes (type 2 controlled (Hgb A1C < 6.5) with complications,) - PUD, past history of gastric ulcer - hypothyroidism Length of stay: 7 days Code status: Full Disposition: Inpatient Douglas Barrow MD-R2 10/14/2017 1:49 PM onversion Transa ction, Provider Unknown - 10/13/2017 10:38 AM PDT Nurse Progress Note by Maude Toussaint RN at 10/13/17 1038 Author: Maude Toussaint RN Service: (none) Author Type: Registered Nurse Filed: 10/13/17 1043 Date of Service: 10/13/17 1038 Status: Signed Muffler Tender: Maude Toussaint RN (Registered Nurse) PTT 64 at 0900 draw. Therapeutic so no change needed. Next draw in am. almbChriss new ARNP - 10/13/2017 7:08 AM PDTFormatting of this note might be different from t he original. Progress Notes by DARRELL Damon at 10/13/17 0708 Author: DARRELL Damon Service: Nephrology Author Type: Nurse Practitioner Filed: 10/13/17 1502 Date of Service: 10/13/17 0708 Status: Attested Muffler Tender: DARRELL Damon (Nurse Practitioner) Cosigner: Jayy Christianson MD at 10/20 Attestation signed by Jayy Christianson MD at 10/20/17 225 I have seen & personally examined the pt with Chriss RAMÍREZ; I have discussed the c ase with him. I agree with his findings & documentation. DARRELL Damon started the documentation. Note, exam, recs, plan, discussions were completed & approved by myself. Jayy Christianson MD Patient was seen and examined with attending Brand Marketing Manager: Dr. Christianson. The patient says that he feels 'ok', reports in his right arm today. he denies any cp or s ob. his urine output is noted. The following portions of the patient's history were reviewed and updated as appropriate: l aboratory data, radiologic studies, allergies, current medications, and problem list. allopurinol 100 mg Oral Daily amLODIPine 10 mg Oral Daily budesonide-formoterol 2 puff Inhalation 2 times daily carvedilol 6.25 mg Oral BID WC levothyroxine 75 mcg Oral QAM AC mupirocin 1 g Nasal BID pneumococcal 23-valent vaccine 0.5 mL Intramuscular Once Immunization sevelamer 800 mg Oral TID WC sodium bicarbonate 1,300 mg Oral BID sodium chloride 10 mL Intravenous Q8H vancomycin 750 mg Intravenous See Admin Instructions BP 97/51 (BP Location: Left upper arm) | Pulse 78 | Temp 98.4 F (36.9 C) (Oral) | Re sp 18 | Ht 1.702 m (5' 7.01") | Wt 83.8 kg (184 lb 12.8 oz) | SpO2 98% | BMI 28.94 kg/m General appearance: Pleasant, not in acute distress. Family in room. Lungs: Clear to auscultation bilaterally and resonant. There are no wheezes. Heart: Regular rate and rhythm without any rub, gallop. no murmur. Abdominal exam: Soft and nontender with normal bowel sounds. Extremities: Warm to touch with significant arm edema in arms, more on the right, no leg e jay. There is no cyanosis or clubbing. He has neck, face, upper chest edema, more on the r ight side. Neurological: Awake, alert, and oriented to time, place, and person. Normal gross motor po wer. There is no asterixis. Access: Left subclavian tunnled HD cath, site is begin. Right arm AVF with good thrill. Lab Results Component Value Date BUN 26 (H) 10/13/2017 CREATININE 7.1 (H) 10/13/2017 EGFR 9 (L) 10/13/2017 NA 134 (L) 10/13/2017 K 4.6 10/13/2017 CL 98 (L) 10/13/2017 CO2 29 10/13/2017 CA 7.9 (L) 10/13/2017 PHOS 5.1 (H) 10/13/2017 MG 2.1 10/13/2017 ALB 2.8 (L) 10/13/2017 HGB 9.3 (L) 10/13/2017 Assessment: Mr. Potter is a 52 y.o. male patient with ESRD on HD. Anemia of ESRD hypoalb Mild hyperphos Mild hypoNa Recommendations: No acute DIRECTOR OF RESIDENCE LIFE indication Next HD per submitted orders Do not give morphine to HD patients please. Morphine was stopped today. Epo with HD Hypoalbuminemia, protein supplements encouraged I discussed with the primary team the case at the time of this encounter. DARRELL Damon Douglas Bess MD - 10/13/2017 7:03 AM PDT Progress Notes by DAMIÁN KuR3 at 10/13/17 0703 Author: DAMIÁN [id number] Service: Hospitalist Author Type: Resident-Y2 Filed: 10/13/17 4754 Date of Service: 10/13/17 07 Status: Attested Muffler Tender: DAMIÁN [id number] (Resident-Y3) Cosigner: Khanh Rangel MD at 10/13/17 1501 Attestation signed by Khanh Rangel MD at 10/13/17 1501 Encountered and examined patient in room 423 with Shyanne laying bedside. Rounding with Residency team. I agree with Dr. Barrow's progress note in its assessment and plan. Patie nt is complaining of pain in the right arm more today than yesterday. informed me that patient has not been eating which is different to him. Right upper extremity is less intense and less edematous, and decreased edema. AV fistula b ruit is noted but soft. Could not appreciate radial pulse of right hand. Discussed with Dr. garnica 10/09 for surgical intervention of thrombolysis of the innominate v eins in the near future. Left IJ hemodialysis catheter. Left antecubital IV. Chronic scaling of bilateral lower extremities. Chronic kidney disease: Discussed in person with Dr. Christianson briefly today. Right upper extremity cellulitis; resolved. Continue IV treatment for bacteremia. Continue with cefepime day #5. Status post vancomycin and ceftazidime day 1. Status post thrombectomy of innominate vein, and AV fistula recanalization 10/11. Also excha nge of new hemodialysis catheter on the left IJ by dr. Garnica today. Continue with IV Heparin. POD #2. Plan: We will get ultrasound of the right upper extremity. PROGRESS NOTE Pt: Carol Fuller Tariq AGE/SEX: 52 y.o. male ROOM: 423/423-1 PCP: ANDRY LOFTON : 1965 PATIENT SUMMARY This is a 52-year-old male with an extensive and complex past medical history including end -stage renal disease secondary to diabetic nephropathy, diabetes mellitus type II, anemia of chronic renal failure, SVC stenosis, and hypertension who presents to the hospital with rig ht upper extremity pain and swelling. He was recently admitted to [facility] the end of July 13 for presumed abscess distal to the AV fistula. He returns again with worsening pain and e jay of the right upper extremity. Due to this he has missed dialysis for a week. He did hav e blood cultures drawn at his dialysis center which then grew gram-positive cocci. SUBJECTIVE Patient was seen and examined in his room with his and his RN present. He said his arm was hurting more and he felt as though the swelling was increasing. He says he has a decrea sed appetite. OBJECTIVE Temp: [97.7 F (36.5 C)-99 F (37.2 C)] 97.7 F (36.5 C) (10/13 112) BP: (93-112)/(51-59) 93/55 (10/13 112) Heart Rate: [74-86] 75 (10/13 1128) Resp: [18] 18 (10/13 112) SpO2: [94 %-98 %] 95 % (10/13 112) Weight: [83.8 kg (184 lb 12.8 oz)] 83.8 kg (184 lb 12.8 oz) (10/13 0405) Physical Exam Constitutional: He is oriented to person, place, and time. Was groaning in pain this a.m., says arm hurts more, on first impressions it appears to be the same if not slightly improved from Saturday HENT: Head: Normocephalic and atraumatic. Right Ear: External ear normal. Left Ear: External ear normal. Mouth/Throat: No oropharyngeal exudate. Facial edema is gone Eyes: Conjunctivae are normal. No scleral icterus. Neck: Neck is short and obese, no noted stridor Cardiovascular: Normal rate, regular rhythm and normal heart sounds. Left tunneled dialysis catheter present Pulmonary/Chest: Effort normal and breath sounds normal. Abdomina/Gl: Patient endorsing some right lower quadrant tenderness, however this was inconsistent on ex amination Musculoskeletal: There is still edema present over the right upper extremity, however it appears to be impro roselyn, pulses are palpable, the thrill of the fistula is palpable Neurological: He is alert and oriented to person, place, and time. Skin: Patient skin somewhat dry, he has non-erythematous papules with some evidence of excoriatio n over his upper extremities and chest, he has been scratching these and they have begun to bleed, his bilateral lower extremities he has dry scaly dark plaques Recent Results (from the past 24 hour(s)) aPTT Collection Time: 10/12/17 2:45 PM Result Value Ref Range APTT 40 (H) 23 - 32 seconds aPTT Collection Time: 10/12/17 8:56 PM Result Value Ref Range APTT 45 (H) 23 - 32 seconds Comprehensive metabolic panel Collection Time: 10/13/17 3:07 AM Result Value Ref Range SODIUM 134 (L) 135 - 145 mmol/L POTASSIUM 4.6 3.5 - 4.9 mmol/L CHLORIDE 98 (L) 99 - 109 mmol/L CO2 29 23 - 32 mmol/L ANION GAP AGAP 12 5 - 20 mmol/L GLUCOSE 106 (H) 65 - 99 mg/dL BUN 26 (H) 8 - 25 mg/dL CREATININE 7.1 (H) 0.70 - 1.30 mg/dL BUN/CREAT 4 CALCIUM 7.9 (L) 8.5 - 10.5 mg/dL TOTAL PROTEIN 6.8 6.3 - 8.2 g/dL Albumin 2.8 (L) 3.6 - 5.0 g/dL GLOBULIN 4.0 1.3 - 4.9 g/dL A/G 0.7 (L) 1.0 - 2.4 TBIL 0.7 0.1 - 1.5 mg/dL ALK PHOS 66 35 - 115 U/L AST 26 10 - 45 U/L ALT 14 10 - 65 U/L EGFR 9 (L) >60 mL/min/1.73m2 CBC W/Auto Diff (Reflex to Manual) Collection Time: 10/13/17 3:07 AM Result Value Ref Range WBC 6.48 3.80 - 11.00 K/uL RBC 3.17 (L) 4.20 - 5.70 M/uL HGB 9.3 (L) 13.2 - 17.0 g/dL HCT 28.0 (L) 39.0 - 50.0 % MCV 88.2 80.0 - 100.0 fl MCH 29.3 27.0 - 34.0 pg MCHC 33.2 32.0 - 35.5 g/dL RDW SD 56.9 (H) 37 - 53 fl PLT 132 (L) 150 - 400 K/uL MPV 7.4 fl DIFF TYPE AUTOMATED NEUTROPHILS 62.39 % LYMPHOCYTES 14.16 % MONOCYTES 12.53 % EOSINOPHILS 10.24 % BASOPHILS 0.68 % NEUTROPHILS ABS 4.04 1.90 - 7.40 K/uL LYMPHOCYTES ABS 0.92 (L) 1.00 - 3.90 K/uL MONOCYTES ABS 0.81 (H) 0.00 - 0.80 K/uL EOSINOPHILS ABS 0.66 (H) 0.00 - 0.50 K/uL BASOPHILS ABS 0.04 0.00 - 0.10 K/uL MORPHOLOGY RBC AND PLT MORPHOLOGY APPEAR NORMAL Magnesium Collection Time: 10/13/17 3:07 AM Result Value Ref Range MAGNESIUM 2.1 1.7 - 2.4 mg/dL Phosphorus Collection Time: 10/13/17 3:07 AM Result Value Ref Range PHOSPHORUS 5.1 (H) 2.3 - 4.8 mg/dL APTT Collection Time: 10/13/17 3:07 AM Result Value Ref Range APTT 60 (H) 23 - 32 seconds APTT Collection Time: 10/13/17 9:03 AM Result Value Ref Range APTT 64 (H) 23 - 32 seconds MEDICATIONS allopurinol 100 mg Oral Daily amLODIPine 10 mg Oral Daily budesonide-formoterol 2 puff Inhalation 2 times daily carvedilol 6.25 mg Oral BID WC levothyroxine 75 mcg Oral QAM AC mupirocin 1 g Nasal BID pneumococcal 23-valent vaccine 0.5 mL Intramuscular Once Immunization sevelamer 800 mg Oral TID WC sodium bicarbonate 1,300 mg Oral BID sodium chloride 10 mL Intravenous Q8H vancomycin 750 mg Intravenous See Admin Instructions heparin 50 units/mL 15 Units/kg/hr (10/13/17 5013) PRN: acetaminophen OR acetaminophen, albumin human, albuterol, dextrose, dextrose, diphenhyd rAMINE, eucerin, heparin (porcine) 5000 unit/0.5mL, heparin (porcine) 5000 unit/0.5mL, HYDRO codone-acetaminophen, morphine, ondansetron OR ondansetron, polyethylene glycol, traMADo l, zolpidem ASSESSMENT & PLAN AV fistula infection with Staphylococcus aureus bacteremia: Patient is being treated for a presumed infection of his AV fistula site versus septic thrombophlebitis. Cultures thus far are negative to date. He has been known to grow MRSA on previous cultures. ID is on board. W michael blood cell count is normal. - Infectious disease is on board, appreciate recommendations - Continue Vancomycin - AM CBC - F/U Culture reports ESRD w/Metabolic Acidosis: Patient has end-stage renal disease and receives dialysis Saturday, Wednesdays, and Fridays. Metabolic acidosis has resolved, will receive dialysis per nephr ology. - Appreciate nephrology's management - AM CMP w/Mg, Phos - Dialysis per nephrology Thrombosis of subclavian stent w/SVC syndrome: Patient had a stent placed in his subclavian vein in September 2016 by interventional radiology. He had interval improvement over the d, however today reports that his arm is feeling worse and is more painful, however on exam it appears to be somewhat better if not stable from my exam on Saturday post procedure. We emily rodriguez add tramadol for pain management and continue to monitor - Patient is to be on heparin, will need long-term adequate anticoagulation - Continue renal diabetic diet DMII: Patient has a diagnosis of diabetes mellitus type II with diabetic nephropathy. His l ast A1c was 5.5. Patient does not take any antidiabetic medications at home. - Diabetic diet - Continue to monitor POCT glucose HTN: Improving with dialysis, continue to monitor. Continue home medications. Gout: Continue allopurinol Hypothyroidism: Continue levothyroxine Anemia of chronic renal insufficiency: Stable continue monitor Dietary: Dietary has been consult and will provide education for appropriate renal diet. Problem list: Principal Problem: 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HCC) Active Problems: Metabolic acidosis Hypoalbuminemia Diabetes mellitus with ESRD (end-stage renal disease) HTN (hypertension) ESRD (end stage renal disease) on dialysis Anemia of chronic kidney failure Gout Staphylococcus aureus bacteremia Chest pain, unspecified Superior vena caval stenosis SVC syndrome Active comorbid conditions include: - essential hypertension, with renal disease (with CKD stage 5 or ESRD) - renal disease, CKD (ESRD) - nutritional anemia - COPD - mild intermittent asthma - diabetes (type 2 controlled (Hgb A1C < 6.5) with complications,) - PUD, past history of gastric ulcer - hypothyroidism Length of stay: 6 days Code status: Full Disposition: Inpatient Douglas Barrow MD-R2 10/13/2017 1:54 PM on, Khanh Maya MD - 10/12/2017 2:55 PM PDTFormatting of this note might be different from the origi nal. Progress Notes by Khanh Rangel MD at 10/12/17 0034 Author: Khanh Rangel MD Service: Hospitalist Author Type: Physician Filed: 10/13/17 1500 Date of Service: 10/12/17 5685 Status: Signed Muffler Tender: Khanh Rangel MD (Physician) [facility] Service: Hospitalist Progress Note Hospital Day: LOS: 6 days Post-Op Day: * No surgery found * SUBJECTIVE Patient Summary: admitted for thrombosis of chest stent and right upper extremity ve nous system. Events Overnight: 10/12: Patient denies any complaint at this time. ROS: 12 point ROS reviewed and negative other than above. Scheduled Medications allopurinol 100 mg Oral Daily amLODIPine 10 mg Oral Daily budesonide-formoterol 2 puff Inhalation 2 times daily carvedilol 6.25 mg Oral BID WC levothyroxine 75 mcg Oral QAM AC mupirocin 1 g Nasal BID pneumococcal 23-valent vaccine 0.5 mL Intramuscular Once Immunization sevelamer 800 mg Oral TID WC sodium bicarbonate 1,300 mg Oral BID sodium chloride 10 mL Intravenous Q8H vancomycin 750 mg Intravenous See Admin Instructions Continuous Infusions heparin 50 units/mL 15 Units/kg/hr (10/13/17 1243) PRN Medications acetaminophen OR acetaminophen, albumin human, albuterol, dextrose, dextrose, diphenhyd rAMINE, eucerin, heparin (porcine) 5000 unit/0.5mL, heparin (porcine) 5000 unit/0.5mL, HYDRO codone-acetaminophen, ondansetron OR ondansetron, polyethylene glycol, traMADol, zolpide m OBJECTIVE Vital Signs: BP 93/55 (BP Location: Left upper arm) | Pulse 75 | Temp 97.7 F (36.5 C) (Oral) | Re sp 18 | Ht 1.702 m (5' 7.01") | Wt 83.8 kg (184 lb 12.8 oz) | SpO2 95% | BMI 28.94 kg/m Physical Exam: General Appearance: Encountered patient in room 423 laying flat in bed. Shyanne at [facility]. No apparent distress. Conversive and appropriate to place and person. HEENT: Normocephalic, atraumatic, pupils EOMI, PERRLA. Nose: no septal deviation or dischar ge noted. Ears: normal size, location, and contour. Throat dry and without exudates. NECK: is supple, full ROM, nontender. Left chest hemodialysis catheter is noted. LUNGS: relatively clear to auscultation bilaterally with no obvious wheezing, No rales or r honchi audible. HEART: S1S2, Regular rate and rhythm without murmurs, gallops or rubs appreciated. ABDOMEN: Bowel sound is normoactive, abdomen is soft, non-tender non-distended ,no mass pal pable. EXTREMITIES: Right upper extremity bruits noted of the AV fistula. Right upper extremity wi th much decrease in edema but still mildly edematous. No lower extermity edema, Muscle stren gth adequate bilaterally. NEURO: Cranial Nerves 2-12 appears intact, Gait not tested, PSYCH: Alert, awake and Oriente d x3. SKIN: Scaling lesions of bilateral lower extremities. DATA Recent Labs Lab 10/13/1730610/12/17 0535 10/11/17 0528 WBC 6.48 5.87 5.55 RBC 3.17* 3.32* 3.48* HCT 28.0* 29.0* 30.6* MCV 88.2 87.3 87.8 MCH 29.3 28.5 28.9 MCHC 33.2 32.6 32.9 RDW 56.9* 53.8* 54.3* PLT 132* 158 165 MPV 7.4 7.0 7.0 DIFFTYPE AUTOMATED AUTOMATED AUTOMATED Recent Labs Lab 10/13/1730610/12/17 0535 10/11/17 0528 K 4.6 5.0* 4.5 CL 98* 98* 99 CO2 29 24 25 ANIONGAP 12 17 16 GLUF 106* 95 79 BUN 26* 38* 27* CREATININE 7.1* 9.2* 7.2* BCR 4 4 4 CA 7.9* 8.2* 8.4* PROT 6.8 7.0 7.0 ALB 2.8* 2.9* 2.8* GLOB 4.0 4.1 4.2 BILITOT 0.7 0.6 0.7 ALP 66 66 72 AST 26 22 25 ALT 14 16 17 EGFR 9* 6* 8* Recent Labs Lab 10/13/17 0307 10/12/17 0535 10/11/17 0528 MG 2.1 2.2 2.2 Recent Labs Lab 10/13/17 0903 10/13/17 0307 10/12/17205510/09/17 0019 10/07/17 0339 APTT 64* 60* 45* < > 36* 33* INR -- -- -- -- 1.0 1.0 < > = values in this interval not displayed. Recent Labs Lab 10/07/17 0910/07/17 0339 CKTOTAL 140 163 TROPONINI -- <0.020 CKMBINDEX -- 4.7 Cta Upper Extremity Right With Iv Contrast Result Date: 10/07/2017 EXAM: RIGHT UPPER EXTREMITY CT ANGIOGRAM WITH CONTRAST EXAM DATE: 10/07/2017 04:03 AM. [facility] HISTORY: Right upper arm fistula, infection. COMPARISON: 10/05/2017. TECHNIQUE: Thin-sec tion axial images were acquired of the upper extremity in the arterial phase after administr ation of intravenous contrast. IV contrast: Iodinated. Post-processing: Multiplanar MPR and 3D MIP reformats. Other: None. In accordance with CT protocol optimization, one or more of t he following dose reduction techniques were utilized for this exam: automated exposure contr ol, adjustment of mA and/or KV based on patient size, or use of iterative reconstructive trent hnique. FINDINGS: Vascular Structures: Patient has a SVC and subclavian venous stent which a ppears thrombosed and collapsed. Remaining vascular structures appear widely patent, includi ng an ectatic brachial to cephalic vein fistula. The graft measures up to 29 x 20 mm in cros s section. No arterial high-grade stenosis seen. Other: Severe subcutaneous edema in the rig ht upper extremity and right chest wall. There is a fluid collection at the anterior aspect of the distal biceps muscle, measuring approximately 4 x 1 x 5 cm, axial image 330 series 6 and sagittal image 105. Collection is directly posterior and medial to the bypass graft. No other discrete fluid collection seen. No tracking soft tissue gas seen. Reactive adenopathy. 1. 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 2. Extensive right upper extrem ity and chest wall subcutaneous edema could be a combination of infection and related to dawson ous obstruction. 3. Approximately 4 x 1 x 5 m fluid collection at the anterior aspect of the distal biceps muscle. If there is clinical concern for abscess/pyomyositis, aspiration coul d be considered. 4. No other vascular thrombosis seen with patent ectatic bypass graft as se en previously. RADIA Electronically signed by Favio Abbasi MD on Oct 07 2017 4:43AM Re vianca Provider Line: [phone] ID: [id number] Mri Shoulder Right Without Contrast Result Date: 10/08/2017 HISTORY: 52-year-old male with joint pain. Renal failure. On dialysis with stenosis of the superior vena cava TECHNIQUE: MR of the right shoulder. No recent similar prior study. FINDI NGS: The configuration of the AC joint demonstrates are [the, endplate irregularities and so me signal changes without joint space widening or proven erosions. There is some anterior di stal productive changes arising from the acromion which could contribute to rotator cuff imp ingement Low [id number] ratio renders is a low sensitivity examination. There is no avu lsive rotator cuff disease or retraction of myotendinous structures. Intrasubstance or nonhi gh-grade undersurface disease or be difficult to exclude especially about the distal anterio r supraspinatus insertion, no image 4 series 11 Low sensitivity evaluation the labrum but no proven labral defect about the superior labrum. Labral cyst There is pronounced edema and a nasarca and superficial tissues with ectatic vessels noted, likely related to the patient's venous disease Some degenerative changes of the glenohumeral articulation with some marginal productive changes about the right humerus but there is no unexplained skeletal edema. No f racture.. 1. Low sensitivity examination but there is no evidence of high-grade rotator cuff disease 2. Significant edema and vascular varicosities in the superficial tissues, but there is no j oint effusion. No abscess suggested, no organized fluid collection 3. No marrow signal cuadra es to suggest osteomyelitis although there are degenerative changes noted Electronically sig sven by Giovany Espitia MD on 10/08/2017 8:08 PM Us Upper Extremity Venous Doppler Right Result Date: 10/13/2017 HISTORY: 52 -year-old male with pain and swelling TECHNIQUE: Ultrasound of the right upper extremity deep venous systems. No prior similar study available for comparison. This is a true duplex examination with generation and interrogation of Doppler spectral analysis, colo r flow and investigation waveforms. Where investigated, these findings were unremarkable and supportive of the conclusions of the attached report. FINDINGS: Normal compression, color f low, respiratory variation and mechanical augmentation at all interrogated points demonstrat ed.. Duplex examination demonstrating normal color flow, Doppler spectral analysis as expect ed for the venous structures here. Incidental findings there is known thrombus of the right internal jugular vein. This is a stable finding from the CT scan from 07 October 2017 Known thrombus of the right internal jugular vein, extending to the stent. There is no new thrombus or extension into the right upper extremity Us Upper Extremity Venous Doppler Right Result Date: 10/09/2017 HISTORY: 52 -year-old male with pain and swelling TECHNIQUE: Ultrasound of the right upper extremity deep venous systems. No prior similar study available for comparison. This is a true duplex examination with generation and interrogation of Doppler spectral analysis, colo r flow and investigation waveforms. Where investigated, these findings were unremarkable and supportive of the conclusions of the attached report. FINDINGS: Normal compression, color f low, respiratory variation and mechanical augmentation at all interrogated points demonstrat ed.. Duplex examination demonstrating normal color flow, Doppler spectral analysis as expect ed for the venous structures here. Incidental findings a nonorganized low density fluid grace ection in the region of the distal bicep extending to the medial tibial fossa could be a ser purvi. No report of trauma Vascular fistula about the humerus noted also, the somewhat distend ed vessel over a centimeter. There is some limitations due to edema 1. No evidence of deep venous thrombosis , right upper extremity 2. What may be a sessile t hin seroma or other fluid collection the antecubital fossa 3. Somewhat aneurysmally dilated fistula, with a luminal diameter measuring no well over centimeter Ir Puncture Aspiration Result Date: 10/07/2017 IR PUNCTURE ASPIRATION dated 10/07/2017 12:47 PM CLINICAL DATA: History of right arm brachio cephalic fistula with recent MRSA bacteremia, right arm swelling and cellulitis with fluid c ollection seen adjacent to the fistula on CT of the right arm. Concern for abscess. COMPARIS ON STUDIES: CT arm 10/07/2017 PRIMARY FRONT COUNTER CLERK: Jimenez Garnica MD, PhD, RPVI OPERATIONS: 1. Right arm ultrasound and fluoroscopic guided soft tissue fluid aspiration. PROCEDURE: 2 ysician consent was obtained with myself and Dr. Colbert. Continuous cardiac monitoring was p erformed throughout the procedure. No sedation was used. Please see temporary dialysis karl ter of the same date for radiation dose. Following placement of a temporary dialysis cathete r, the right upper cavity was sterilely prepped and draped in usual fashion. Skin was locall y anesthetized with 1% lidocaine. Ultrasound images were obtained with grayscale and color d ocumenting the patent fistula and adjacent fluid collection without any color flow. A Yueh c entesis needle was advanced under ultrasound with difficult visualization secondary to the s evere soft tissue swelling. Subsequently a micropuncture needle was used and advanced into t he fluid collection followed by a wire confirmed fluoroscopically. The needle was exchanged to the micropuncture sheath which was then used to aspirate approximately 25 cc of dark loree k fluid which was sent for culture. FINDINGS: Ultrasound demonstrates a relatively anechoic soft tissue fluid collection adjacent to the right upper extremity fistula which has no colo r flow. Upon aspiration, it appears that this represents an old hematoma. Successful right upper extremity ultrasound-guided aspiration, cultures pending. Likely rep resenting old hematoma. Ir Central Venous Catheter Insertion Result Date: 10/09/2017 IR CENTRAL VENOUS CATHETER INSERTION dated 10/09/2017 9:00 AM CLINICAL DATA: Nonfunctioning left IJ temporary dialysis catheter COMPARISON STUDIES: Placement fluoroscopic images 018 and others PRIMARY FRONT COUNTER CLERK: Jimenez Garnica MD, PhD, RPVI OPERATIONS: 1. Replacement of temporary left internal jugular dialysis catheter 2. Left innominate/superior vena cava angioplasty 3. Left superior vena cava fibrin sheath stripping 4. Left subclavian/innomina te/SVC venogram. PROCEDURE: Informed consent was obtained from the patient. Continuous card iac monitoring was performed throughout the procedure. Medications: 50 mcg Fentanyl IV, 3000 units heparin IV Antibiotic: None Contrast: 30 cc Isovue 250 Fluoroscopy time: 1.1 minutes Radiation dose: 139 mGy air kerma Patient was sterilely prepped and draped in the usual [facility] ion about the left neck. [employer] fluoroscopic image was obtained showing relatively unchanged position of the existing internal jugular catheter. An Amplatz wire was placed through the e xisting catheter into the inferior vena cava and the catheter was exchanged for a new 20 cm Mahurkar temporary dialysis catheter. Likely pre-existing catheter, the arterial port would not draw. Therefore, the catheter was removed and a 11 Afghan sheath was placed. Venogram im aging the left subclavian, left innominate and superior vena cava demonstrated thrombotic oc clusion at the central aspect of the left innominate vein extending into the superior vena c dianna. An 8mm by 4 cm angioplasty balloon was then inflated for 2 minutes over the occlusion f ollowed by a fibrin sheath stripping with to and fro motion of the inflated balloon in the s uperior vena cava. Repeat venogram demonstrated some flow but residual thrombus as well as r esidual flow-limiting stenosis at the innominate confluence. Patient was heparinized. Theref ore, a 12 mm x 4 cm angioplasty balloon was inflated for 5 minutes over the innominate confl uence. Follow-up venogram demonstrated orthodoxy of vigorous flow with some AP attenuation at the innominate confluence. The new Mahurkar catheter was readvanced and positioned with tip at the cavoatrial junction. All ports had good aspiration and forward flow and the dialy sis ports were locked with 1mL/5000 units heparin. The catheter was sutured in place. FINDIN GS: The existing catheter tip position is relatively unchanged, possibly slightly retracted just above the cavoatrial junction. Venogram via the left subclavian vein and imaging the le ft innominate and superior vena cava demonstrates a focal thrombotic occlusion in the centra l left innominate vein extending past the confluence into the superior vena cava. Following initial angioplasty, it is apparent that there is a severe focal stenosis at the innominate confluence. The existing right innominate and subclavian stents are occluded. The accessory hemiazygos vein is prominent and providing collateral flow around the occlusion. Following i nterventions, there is orthodoxy of flow through the left innominate vein and superior dawson a cava with some degree of residual AP attenuation at the innominate confluence. The new cat heter tip is at the cavoatrial junction. 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 Replacement of temporary left internal jugular catheter with tip at cavoatrial juncti on. PLAN: Patient needs to be fully anticoagulated to prevent recurrent thrombosis and loss of hemodialysis access. When infection concerns are resolved and is clinically appropriate, right arm fistulogram with attempt at recanalization of the right subclavian/innominate vein s is recommended. If not successful, the left IJ temporary catheter can be converted to a tu nneled catheter at that time. Discussed with Dr. Soria. Ir Central Venous Catheter Insertion Result Date: 10/07/2017 IR CENTRAL VENOUS CATHETER INSERTION dated 10/07/2017 10:30 AM IR CENTRAL VENOUS CATHETER IN SERTION dated 10/07/2017 10:30 AM PROCEDURES: 1. Ultrasound-guided access of the left digital marketing intern al jugular vein. 2. Ultrasound and fluoroscopically guided placement of a left IJ non-tunne led hemodialysis catheter CLINICAL DATA: History of right arm cellulitis with right upper e xtremity AV access compromised. Prior right innominate/subclavian venous occlusion with reoc clusion on CT upper extremity comparison. Need for hemodialysis access. COMPARISON STUDIES: CT right upper extremity 10/07/2017 and others CONSENT: Patient was hypersomnolent and recent ly given morphine and could not consent for himself. The risks, alternatives and benefits of the procedure were discussed with the patient's hospitalist Dr. Uriostegui. 2 physician signed and verbal consent was given as witnessed by nursing staff. SEDATION: None CONTRAST: None F LUOROSCOPY TIME: 1.5 minutes and 25 mGy air kerma PROCEDURE: The left neck and chest were p repped and draped in usual sterile fashion. The skin and deep subcutaneous soft tissues ove rlying the right internal jugular vein were anesthetized with 1% lidocaine. A small skin ni ck was made with a #11 blade. Under real-time ultrasound guidance, using micropuncture techn ique, the left internal jugular vein was accessed and a microwire advanced. Over the microw rowdy a 5-Afghan micro- sheath was placed. A single ultrasound image was obtained documenting the access and this was placed in the medical record. Through the micro-sheath, an 0.035 Ro sen wire was advanced under fluoroscopic guidance but would not pass into the superior vena cava and repeatedly directed into the right innominate stent. Therefore, an angled glide cat heter and wire were used to navigate into the superior vena cava and subsequently the wire w as placed into the inferior vena cava. The tract was serially dilated to 12.-Afghan. A 20-c m Mahurkar 12-Afghan temporary hemodialysis catheter was placed. The wire was removed. The catheter tip was parked at the cavoatrial junction. The catheter was flushed to ensure prop er function. The base of the catheter was affixed to the skin using two 3-0 Ethilon anchori ng sutures. Sterile dressings were applied. Nursing staff then flushed each lumen of the ca theter with heparin following department protocol. COMPLICATIONS: None immediate. EBL: None. FINDINGS: Existing right subclavian and right innominate stents are noted. Patent left inte rnal jugular vein. A single fluoroscopic image was obtained documenting the catheter tip pos itioned in the cavoatrial junction. Successful placement of a left IJ non-tunneled hemodialysis catheter. PLAN: Once infection clears, consider recanalization of the subclavian/innominate stents versus placement of a tu nneled dialysis catheter. Note: Please see separate dictation for aspiration of right arm fl uid collection performed same time. 12: 45 PM Ir Av Fistulagram Img W Angioplasty Result Date: 10/11/2017 Right arm fistulogram and tunneled dialysis catheter placement dated 10/11/2017 11:26 AM CLI NICAL DATA: End stage renal disease with prior right subclavian/innominate recanalization wi th stent placement with reocclusion of the stents, severe arm swelling. Temporary left inter nal jugular dialysis catheter needing conversion to tunneled dialysis catheter COMPARISON ST UDIES: 10/07/2017 and 10/09/2017 PRIMARY FRONT COUNTER CLERK: Jimenez Garnica MD, PhD, VI OPERATIONS: Limited ultrasound for diagnostic purposes Right arm fistulogram Right innominate/subclavian recanalization and prolonged angioplasty Left internal jugular tunneled dialysis catheter p lacement over existing temporary dialysis access site. PROCEDURE: Informed consent was obtai sven from the patient. Continuous cardiac monitoring was performed throughout the procedure. Conscious sedation was provided by the nursing staff during the procedure under my supervi quique. Sedation time: 113 minutes Medications: 200 mcg Fentanyl IV, 5000 units heparin IV An tibiotic: 600 mg clindamycin IV Contrast: 75 cc Isovue 250 Fluoroscopy time: 6.9 minutes Rad iation dose: 97 mGy air kerma Patient was sterilely prepped and draped in usual fashion abou t the right upper extremity and the left left internal jugular temporary dialysis catheter. The right brachial basilic arteriovenous anastomosis is widely patent by grayscale and color ultrasound , images in PACS. Site selected on the lower fistula for percutaneous access. in was locally anesthetized with 1% lidocaine a skin torey was made with 11 blade. Real-time ultrasound guided Lei puncture access was obtained and the microsheath was placed throug h which a right arm fistulogram was performed from the upper arm through the chest. The micr osheath was exchanged over a wire for a 6 Afghan 35 cm sheath which was advanced to the leve l of the subclavian occlusion. Patient was heparinized. The occlusion was crossed with an an gled glide catheter and wire. Next multiple 10 mm angioplasty balloons were used for sequent ial and repeated prolonged dilation of the 14 mm innominate and [address] ents with orthodoxy of flow. The wire was left in place until the end of both procedures. Attention was then turned to replacement of a left internal jugular temporary dialysis karl ter to a tunneled dialysis catheter to be used until right arm swelling resolved for right a rm fistula use. A site was selected on the upper chest for subcutaneous tunnel creation. [facility] n was locally anesthetized with 1% lidocaine a skin torey was made with 11 blade. A support w rowdy was placed through the existing left internal jugular temporary dialysis catheter into t he inferior vena cava for support. A 23 cm palindrome catheter was then tunneled from the est to the temporary dialysis catheter site. The temporary dialysis catheter was removed ove r the support wire and exchanged to an 816 Afghan peel-away sheath. The wire was exchanged t o a stiff glide wire and then backloaded over the dialysis catheter. The dialysis catheter w as advanced but could not pass beyond the right innominate stent which protrudes slightly in to the superior vena cava. Therefore, the short peel-away sheath was exchanged to a long pee l-away sheath and a second stiff Glidewire was placed through the other lumen of the dialysi s catheter for additional support. The catheter was then readvanced and the peel-away remove d and the catheter tip was positioned in the upper right atrium. The catheter was aspirated and flushed demonstrated and found to have no resistance. The catheter was sutured in place with 3-0 Ethilon suture and then packed with 1-5000 units heparin and a dressing was applied . The a 3-0 Vicryl pursestring suture was placed around the right basilic vein sheath and th e catheter and wire was removed finding the suture with immediate hemostasis. FINDINGS: Righ t arm color and grayscale ultrasound demonstrates a widely patent brachial basilic arteriove nous anastomosis. The right arm fistulogram demonstrates occlusion of the right subclavian a nd innominate venous stents. There are numerous neck and chest venous collaterals. The tempo rary left internal jugular dialysis catheter tip is at the cavoatrial junction just beyond t he venous stents. Following prolonged multiple angioplasties of the right subclavian and inn ominate venous stents, there is orthodoxy of vigorous flow with no residual stenosis. Ther e is resolution of of opacification of the venous collaterals. Following replacement over th e temporary dialysis catheter with the tunneled dialysis catheter, the catheter tip states a t the upper right atrium. 1. Occluded right subclavian and innominate venous stent status post successful recanalizat ion with prolonged angioplasty. 2. Left internal jugular temporary dialysis catheter convers ion to tunneled dialysis catheter. PLAN: The left internal jugular tunneled dialysis cathete r can be used until the right arm swelling is improved. Once the right arm fistula is regula rly used for dialysis, plan removal of the tunneled dialysis catheter. Patient is to remain on lifelong anticoagulation. Ir Guidance Vascular Access Us Result Date: 10/11/2017 This Point of Care (POC) ultrasound image has been reviewed and interpreted by the physicia n identified as the performing physician in the associated interpretation and report. Ir Guidance Vascular Access Us Result Date: 10/07/2017 This Point of Care (POC) ultrasound image has been reviewed and interpreted by the physicia n identified as the performing physician in the associated interpretation and report. Ir Us Guidance Imaging Result Date: 10/07/2017 This Point of Care (POC) ultrasound image has been reviewed and interpreted by the physicia n identified as the performing physician in the associated interpretation and report. PROBLEM LIST ASSESSMENT & PLAN Principal Problem: 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HCC) Active Problems: Metabolic acidosis Hypoalbuminemia Diabetes mellitus with ESRD (end-stage renal disease) HTN (hypertension) ESRD (end stage renal disease) on dialysis Anemia of chronic kidney failure Gout Staphylococcus aureus bacteremia Chest pain, unspecified Superior vena caval stenosis SVC syndrome Thrombosis: SVC syndrome. Right upper extremity is less intense and less edematous, and dec reased edema. Discussion has been made with Dr. garnica 10/09 for surgical intervention of throm bolysis of the innominate veins in the near future. Continue with heparin. Chronic kidney disease: Discussed in person with Dr. Christianson briefly today. Right upper extremity cellulitis; resolved. Continue IV treatment for bacteremia. Continue with cefepime day #4. Status post vancomycin and ceftazidime day 1. Dr. Crespo following. Status post thrombectomy of innominate vein, and AV fistula recanalization. Also exchange o f new hemodialysis catheter on the left IJ by dr. Garnica today. Continue with IV Heparin. Prognosis remained fragile. Hospital records reviewed. Labs and radiologic studies and reports reviewed. Discussed find ings with participating physicians. Old records reviewed on EMR. Condition guarded and high risk for cardiopulmonary decompensation due to underlying condit ions This report has been prepared using a voice recognition system. The report was reviewed for accuracy, however, sound-alike word errors, addition and/or deletions may occur. If there i s any question about this report please contact me. Disposition: inpatient Code Status: Full Code Khanh Rangel MD 10/13/2017 osalindl, Kate Driscoll MD - 10/12/2017 10:56 AM PDT Progress Notes by Jimenez Garnica MD PhD at 10/12/17 1056 Author: Jimenez Garnica MD PhD Service: Interventional Radiology Author Type: Physician Filed: 10/12/17 1103 Date of Service: 10/12/171055 Status: Signed Muffler Tender: Jimenez Garnica MD PhD (Physician) Interventional Radiology Progress Note Patient Name: Carol Potter Date of : 1965 Consulting Provider: Jimenez Garnica MD, PhD Interval History/Subjective: Carol Potter is a 52 y.o. male. Feeling better this am with resolution of arm pain and decre asing swelling of his right arm s/p right subclavian/innominate recanalization. Per lab tech, left IJ tunneled dialysis catheter is functioning well for dialysis. Labs: 3 Day Labs: Recent Labs Lab 10/12/17 0535 10/11/17 0528 10/10/17 0616 10/09/17 0019 10/08/17 0545 10/07/17 0339 10/05/17 1402 WBC 5.87 5.55 5.36 < > 5.67 7.49 8.72 7.23 HGB 9.5* 10.1* 10.4* < > 10.7* 11.9* 11.2* 11.1* HCT 29.0* 30.6* 30.8* < > 32.1* 35.8* 33.9* 34.5* PLT 158 165 200 < > 184 247 283 245 NA 134* 135 134* < > -- 133* 130* 133* K 5.0* 4.5 4.2 < > -- 4.7 5.7* 4.8 CL 98* 99 96* < > -- 96* 100 97* CO2 24 25 27 < > -- 24 14* 19* BUN 38* 27* 35* < > -- 46* 81* 71* CREATININE 9.2* 7.2* 7.9* < > -- 9.5* 15* 15* PHOS 6.1* 4.8 4.8 < > -- 5.7* -- -- MG 2.2 2.2 2.2 < > -- 2.5* -- -- PROT 7.0 7.0 6.9 < > -- 7.3 7.2 7.2 BILITOT 0.6 0.7 0.7 < > -- 0.9 0.6 0.7 INR -- -- -- -- 1.0 -- 1.0 1.0 TSH -- -- -- -- -- 14.800* -- -- HGBA1C -- -- -- -- -- 5.9 -- -- < > = values in this interval not displayed. Pertinent Imaging/Procedures: Cta Upper Extremity Right With Iv Contrast Result Date: 10/07/2017 EXAM: RIGHT UPPER EXTREMITY CT ANGIOGRAM WITH CONTRAST EXAM DATE: 10/07/2017 04:03 AM. [facility] HISTORY: Right upper arm fistula, infection. COMPARISON: 10/05/2017. TECHNIQUE: Thin-sec tion axial images were acquired of the upper extremity in the arterial phase after administr ation of intravenous contrast. IV contrast: Iodinated. Post-processing: Multiplanar MPR and 3D MIP reformats. Other: None. In accordance with CT protocol optimization, one or more of t he following dose reduction techniques were utilized for this exam: automated exposure contr ol, adjustment of mA and/or KV based on patient size, or use of iterative reconstructive trent hnique. FINDINGS: Vascular Structures: Patient has a SVC and subclavian venous stent which a ppears thrombosed and collapsed. Remaining vascular structures appear widely patent, includi ng an ectatic brachial to cephalic vein fistula. The graft measures up to 29 x 20 mm in cros s section. No arterial high-grade stenosis seen. Other: Severe subcutaneous edema in the rig ht upper extremity and right chest wall. There is a fluid collection at the anterior aspect of the distal biceps muscle, measuring approximately 4 x 1 x 5 cm, axial image 330 series 6 and sagittal image 105. Collection is directly posterior and medial to the bypass graft. No other discrete fluid collection seen. No tracking soft tissue gas seen. Reactive adenopathy. 1. 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 2. Extensive right upper extrem ity and chest wall subcutaneous edema could be a combination of infection and related to dawson ous obstruction. 3. Approximately 4 x 1 x 5 m fluid collection at the anterior aspect of the distal biceps muscle. If there is clinical concern for abscess/pyomyositis, aspiration coul d be considered. 4. No other vascular thrombosis seen with patent ectatic bypass graft as se en previously. RADIA Electronically signed by Favio Abbasi MD on Oct 07 2017 4:43AM Re vianca Provider Line: [phone] ID: [id number] X-ray Chest 1 View Result Date: 10/07/2017 This is a non-reportable procedure without a radiologist report and is used for image stora ge only Mri Shoulder Right Without Contrast Result Date: 10/08/2017 HISTORY: 52-year-old male with joint pain. Renal failure. On dialysis with stenosis of the superior vena cava TECHNIQUE: MR of the right shoulder. No recent similar prior study. FINDI NGS: The configuration of the AC joint demonstrates are [the, endplate irregularities and so me signal changes without joint space widening or proven erosions. There is some anterior di stal productive changes arising from the acromion which could contribute to rotator cuff imp ingement Low uaeeul-yt-wjqyz ratio renders is a low sensitivity examination. There is no avu lsive rotator cuff disease or retraction of myotendinous structures. Intrasubstance or nonhi gh-grade undersurface disease or be difficult to exclude especially about the distal anterio r supraspinatus insertion, no image 4 series 11 Low sensitivity evaluation the labrum but no proven labral defect about the superior labrum. Labral cyst There is pronounced edema and a nasarca and superficial tissues with ectatic vessels noted, likely related to the patient's venous disease Some degenerative changes of the glenohumeral articulation with some marginal productive changes about the right humerus but there is no unexplained skeletal edema. No f racture.. 1. Low sensitivity examination but there is no evidence of high-grade rotator cuff disease 2. Significant edema and vascular varicosities in the superficial tissues, but there is no j oint effusion. No abscess suggested, no organized fluid collection 3. No marrow signal cuadra es to suggest osteomyelitis although there are degenerative changes noted Electronically sig sven by Giovany Espitia MD on 10/08/2017 8:08 PM Us Upper Extremity Venous Doppler Right Result Date: 10/09/2017 HISTORY: 52 -year-old male with pain and swelling TECHNIQUE: Ultrasound of the right upper extremity deep venous systems. No prior similar study available for comparison. This is a true duplex examination with generation and interrogation of Doppler spectral analysis, colo r flow and investigation waveforms. Where investigated, these findings were unremarkable and supportive of the conclusions of the attached report. FINDINGS: Normal compression, color f low, respiratory variation and mechanical augmentation at all interrogated points demonstrat ed.. Duplex examination demonstrating normal color flow, Doppler spectral analysis as expect ed for the venous structures here. Incidental findings a nonorganized low density fluid grace ection in the region of the distal bicep extending to the medial tibial fossa could be a ser purvi. No report of trauma Vascular fistula about the humerus noted also, the somewhat distend ed vessel over a centimeter. There is some limitations due to edema 1. No evidence of deep venous thrombosis , right upper extremity 2. What may be a sessile t hin seroma or other fluid collection the antecubital fossa 3. Somewhat aneurysmally dilated fistula, with a luminal diameter measuring no well over centimeter Us Upper Extremity Venous Right Result Date: 10/05/2017 CAROL Fuller TARIQ 1965 US UPPER EXTREMITY VENOUS DOPPLER RIGHT 10/05/2017 2:52 PM INDICATION: Arm pain COMPARISON: None TECHNIQUE: Right upper extremity venous duplex, grayscale, color- flow and spectral analysis FINDINGS: The internal jugular vein is patent. There is normal co serg flow of the internal jugular and subclavian veins. Normal augmentation is present along the proximal deep venous system. The cephalic vein is normally compressible. Mid basilic vei n is normal. Examination is limited due to patient soft tissue hardness. 1. No evidence of DVT. Ir Puncture Aspiration Result Date: 10/07/2017 IR PUNCTURE ASPIRATION dated 10/07/2017 12:47 PM CLINICAL DATA: History of right arm brachio cephalic fistula with recent MRSA bacteremia, right arm swelling and cellulitis with fluid c ollection seen adjacent to the fistula on CT of the right arm. Concern for abscess. COMPARIS ON STUDIES: CT arm 10/07/2017 PRIMARY FRONT COUNTER CLERK: Jimenez Garnica MD, PhD, RPVI OPERATIONS: 1. Right arm ultrasound and fluoroscopic guided soft tissue fluid aspiration. PROCEDURE: 2 ph ysician consent was obtained with myself and Dr. Colbert. Continuous cardiac monitoring was p erformed throughout the procedure. No sedation was used. Please see temporary dialysis karl ter of the same date for radiation dose. Following placement of a temporary dialysis cathete r, the right upper cavity was sterilely prepped and draped in usual fashion. Skin was locall y anesthetized with 1% lidocaine. Ultrasound images were obtained with grayscale and color d ocumenting the patent fistula and adjacent fluid collection without any color flow. A Yueh c entesis needle was advanced under ultrasound with difficult visualization secondary to the s evere soft tissue swelling. Subsequently a micropuncture needle was used and advanced into t he fluid collection followed by a wire confirmed fluoroscopically. The needle was exchanged to the micropuncture sheath which was then used to aspirate approximately 25 cc of dark loree k fluid which was sent for culture. FINDINGS: Ultrasound demonstrates a relatively anechoic soft tissue fluid collection adjacent to the right upper extremity fistula which has no colo r flow. Upon aspiration, it appears that this represents an old hematoma. Successful right upper extremity ultrasound-guided aspiration, cultures pending. Likely rep resenting old hematoma. Ir Central Venous Catheter Insertion Result Date: 10/09/2017 IR CENTRAL VENOUS CATHETER INSERTION dated 10/09/2017 9:00 AM CLINICAL DATA: Nonfunctioning left IJ temporary dialysis catheter COMPARISON STUDIES: Placement fluoroscopic images 018 and others PRIMARY FRONT COUNTER CLERK: Jimenez Garnica MD, PhD, RPVI OPERATIONS: 1. Replacement of temporary left internal jugular dialysis catheter 2. Left innominate/superior vena cava angioplasty 3. Left superior vena cava fibrin sheath stripping 4. Left subclavian/innomina te/SVC venogram. PROCEDURE: Informed consent was obtained from the patient. Continuous card iac monitoring was performed throughout the procedure. Medications: 50 mcg Fentanyl IV, 3000 units heparin IV Antibiotic: None Contrast: 30 cc Isovue 250 Fluoroscopy time: 1.1 minutes Radiation dose: 139 mGy air kerma Patient was sterilely prepped and draped in the usual [facility] ion about the left neck. [employer] fluoroscopic image was obtained showing relatively unchanged position of the existing internal jugular catheter. An Amplatz wire was placed through the e xisting catheter into the inferior vena cava and the catheter was exchanged for a new 20 cm Mahurkar temporary dialysis catheter. Likely pre-existing catheter, the arterial port would not draw. Therefore, the catheter was removed and a 11 Afghan sheath was placed. Venogram im aging the left subclavian, left innominate and superior vena cava demonstrated thrombotic oc clusion at the central aspect of the left innominate vein extending into the superior vena c dianna. An 8mm by 4 cm angioplasty balloon was then inflated for 2 minutes over the occlusion f ollowed by a fibrin sheath stripping with to and fro motion of the inflated balloon in the s uperior vena cava. Repeat venogram demonstrated some flow but residual thrombus as well as r esidual flow-limiting stenosis at the innominate confluence. Patient was heparinized. Theref ore, a 12 mm x 4 cm angioplasty balloon was inflated for 5 minutes over the innominate confl uence. Follow-up venogram demonstrated orthodoxy of vigorous flow with some AP attenuation at the innominate confluence. The new Mahurkar catheter was readvanced and positioned with tip at the cavoatrial junction. All ports had good aspiration and forward flow and the dialy sis ports were locked with 1mL/5000 units heparin. The catheter was sutured in place. FINDIN GS: The existing catheter tip position is relatively unchanged, possibly slightly retracted just above the cavoatrial junction. Venogram via the left subclavian vein and imaging the le ft innominate and superior vena cava demonstrates a focal thrombotic occlusion in the centra l left innominate vein extending past the confluence into the superior vena cava. Following initial angioplasty, it is apparent that there is a severe focal stenosis at the innominate confluence. The existing right innominate and subclavian stents are occluded. The accessory hemiazygos vein is prominent and providing collateral flow around the occlusion. Following i nterventions, there is orthodoxy of flow through the left innominate vein and superior dawson a cava with some degree of residual AP attenuation at the innominate confluence. The new cat heter tip is at the cavoatrial junction. 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 Replacement of temporary left internal jugular catheter with tip at cavoatrial juncti on. PLAN: Patient needs to be fully anticoagulated to prevent recurrent thrombosis and loss of hemodialysis access. When infection concerns are resolved and is clinically appropriate, right arm fistulogram with attempt at recanalization of the right subclavian/innominate vein s is recommended. If not successful, the left IJ temporary catheter can be converted to a tu nneled catheter at that time. Discussed with Dr. Soria. Ir Central Venous Catheter Insertion Result Date: 10/07/2017 IR CENTRAL VENOUS CATHETER INSERTION dated 10/07/2017 10:30 AM IR CENTRAL VENOUS CATHETER IN SERTION dated 10/07/2017 10:30 AM PROCEDURES: 1. Ultrasound-guided access of the left digital marketing intern al jugular vein. 2. Ultrasound and fluoroscopically guided placement of a left IJ non-tunne led hemodialysis catheter CLINICAL DATA: History of right arm cellulitis with right upper e xtremity AV access compromised. Prior right innominate/subclavian venous occlusion with reoc clusion on CT upper extremity comparison. Need for hemodialysis access. COMPARISON STUDIES: CT right upper extremity 10/07/2017 and others CONSENT: Patient was hypersomnolent and recent ly given morphine and could not consent for himself. The risks, alternatives and benefits of the procedure were discussed with the patient's hospitalist Dr. Uriostegui. 2 physician signed and verbal consent was given as witnessed by nursing staff. SEDATION: None CONTRAST: None F LUOROSCOPY TIME: 1.5 minutes and 25 mGy air kerma PROCEDURE: The left neck and chest were p repped and draped in usual sterile fashion. The skin and deep subcutaneous soft tissues ove rlying the right internal jugular vein were anesthetized with 1% lidocaine. A small skin ni ck was made with a #11 blade. Under real-time ultrasound guidance, using micropuncture techn [employer], the left internal jugular vein was accessed and a microwire advanced. Over the microw rowdy a 5-Afghan micro- sheath was placed. A single ultrasound image was obtained documenting the access and this was placed in the medical record. Through the micro-sheath, an 0.035 Ro sen wire was advanced under fluoroscopic guidance but would not pass into the superior vena cava and repeatedly directed into the right innominate stent. Therefore, an angled glide cat heter and wire were used to navigate into the superior vena cava and subsequently the wire w as placed into the inferior vena cava. The tract was serially dilated to 12.-Afghan. A 20-c m Dentonkar 12-Afghan temporary hemodialysis catheter was placed. The wire was removed. The catheter tip was parked at the cavoatrial junction. The catheter was flushed to ensure prop er function. The base of the catheter was affixed to the skin using two 3-0 Ethilon anchori ng sutures. Sterile dressings were applied. Nursing staff then flushed each lumen of the ca theter with heparin following department protocol. COMPLICATIONS: None immediate. EBL: None. FINDINGS: Existing right subclavian and right innominate stents are noted. Patent left inte rnal jugular vein. A single fluoroscopic image was obtained documenting the catheter tip pos itioned in the cavoatrial junction. Successful placement of a left IJ non-tunneled hemodialysis catheter. PLAN: Once infection clears, consider recanalization of the subclavian/innominate stents versus placement of a tu nneled dialysis catheter. Note: Please see separate dictation for aspiration of right arm fl uid collection performed same time. 12: 45 PM Ir Av Fistulagram Img W Angioplasty Result Date: 10/11/2017 Right arm fistulogram and tunneled dialysis catheter placement dated 10/11/2017 11:26 AM CLI NICAL DATA: End stage renal disease with prior right subclavian/innominate recanalization wi th stent placement with reocclusion of the stents, severe arm swelling. Temporary left inter nal jugular dialysis catheter needing conversion to tunneled dialysis catheter COMPARISON ST UDIES: 10/07/2017 and 10/09/2017 PRIMARY FRONT COUNTER CLERK: Jimenez Garnica MD, PhD, RPVI OPERATIONS: Limited ultrasound for diagnostic purposes Right arm fistulogram Right innominate/subclavian recanalization and prolonged angioplasty Left internal jugular tunneled dialysis catheter p lacement over existing temporary dialysis access site. PROCEDURE: Informed consent was obtai sven from the patient. Continuous cardiac monitoring was performed throughout the procedure. Conscious sedation was provided by the nursing staff during the procedure under my supervi quique. Sedation time: 113 minutes Medications: 200 mcg Fentanyl IV, 5000 units heparin IV An tibiotic: 600 mg clindamycin IV Contrast: 75 cc Isovue 250 Fluoroscopy time: 6.9 minutes Rad iation dose: 97 mGy air kerma Patient was sterilely prepped and draped in usual fashion abou t the right upper extremity and the left left internal jugular temporary dialysis catheter. The right brachial basilic arteriovenous anastomosis is widely patent by grayscale and color ultrasound , images in PACS. Site selected on the lower fistula for percutaneous access. in was locally anesthetized with 1% lidocaine a skin torey was made with 11 blade. Real-time ultrasound guided Lei puncture access was obtained and the microsheath was placed throug h which a right arm fistulogram was performed from the upper arm through the chest. The micr osheath was exchanged over a wire for a 6 Afghan 35 cm sheath which was advanced to the leve l of the subclavian occlusion. Patient was heparinized. The occlusion was crossed with an an gled glide catheter and wire. Next multiple 10 mm angioplasty balloons were used for sequent ial and repeated prolonged dilation of the 14 mm innominate and [address] ents with orthodoxy of flow. The wire was left in place until the end of both procedures. Attention was then turned to replacement of a left internal jugular temporary dialysis karl ter to a tunneled dialysis catheter to be used until right arm swelling resolved for right a rm fistula use. A site was selected on the upper chest for subcutaneous tunnel creation. [facility] n was locally anesthetized with 1% lidocaine a skin torey was made with 11 blade. A support w rowdy was placed through the existing left internal jugular temporary dialysis catheter into t he inferior vena cava for support. A 23 cm palindrome catheter was then tunneled from the est to the temporary dialysis catheter site. The temporary dialysis catheter was removed ove r the support wire and exchanged to an 816 Afghan peel-away sheath. The wire was exchanged t o a stiff glide wire and then backloaded over the dialysis catheter. The dialysis catheter w as advanced but could not pass beyond the right innominate stent which protrudes slightly in to the superior vena cava. Therefore, the short peel-away sheath was exchanged to a long pee l-away sheath and a second stiff Glidewire was placed through the other lumen of the dialysi s catheter for additional support. The catheter was then readvanced and the peel-away remove d and the catheter tip was positioned in the upper right atrium. The catheter was aspirated and flushed demonstrated and found to have no resistance. The catheter was sutured in place with 3-0 Ethilon suture and then packed with 1-5000 units heparin and a dressing was applied . The a 3-0 Vicryl pursestring suture was placed around the right basilic vein sheath and th e catheter and wire was removed finding the suture with immediate hemostasis. FINDINGS: Righ t arm color and grayscale ultrasound demonstrates a widely patent brachial basilic arteriove nous anastomosis. The right arm fistulogram demonstrates occlusion of the right subclavian a nd innominate venous stents. There are numerous neck and chest venous collaterals. The tempo rary left internal jugular dialysis catheter tip is at the cavoatrial junction just beyond t he venous stents. Following prolonged multiple angioplasties of the right subclavian and inn ominate venous stents, there is orthodoxy of vigorous flow with no residual stenosis. Ther e is resolution of of opacification of the venous collaterals. Following replacement over th e temporary dialysis catheter with the tunneled dialysis catheter, the catheter tip states a t the upper right atrium. 1. Occluded right subclavian and innominate venous stent status post successful recanalizat ion with prolonged angioplasty. 2. Left internal jugular temporary dialysis catheter convers ion to tunneled dialysis catheter. PLAN: The left internal jugular tunneled dialysis cathete r can be used until the right arm swelling is improved. Once the right arm fistula is regula rly used for dialysis, plan removal of the tunneled dialysis catheter. Patient is to remain on lifelong anticoagulation. Ir Guidance Vascular Access Us Result Date: 10/11/2017 This Point of Care (POC) ultrasound image has been reviewed and interpreted by the kuldeep n identified as the performing physician in the associated interpretation and report. Ir Guidance Vascular Access Us Result Date: 10/07/2017 This Point of Care (POC) ultrasound image has been reviewed and interpreted by the physicsasha n identified as the performing physician in the associated interpretation and report. Ir Us Guidance Imaging Result Date: 10/07/2017 This Point of Care (POC) ultrasound image has been reviewed and interpreted by the physicsasha n identified as the performing physician in the associated interpretation and report. Physical Examination: Vitals: 10/12/17 1045 BP: Pulse: Resp: 18 Temp: SpO2: Physical Exam Right arm brachiobasilic AV fistula has palpable pulsatile thrill. Right arm swelling is si gnificantly improved but lichenification and skin thickening remains. Left IJ TDC is appropr iate appearing. Pt is alert and oriented today. Assessment and Plan: Vascular access for ESRD hemodialysis. Right arm symptomatically improving but suspect it w ill take sometime before fistula can be used. Continue left tunneled dialysis catheter use f or now. NOTE: Patient has very precarious hemodialysis access. Please contact me if there are any p roblems and do not remove tunneled dialysis catheter without first consulting with me. Jimenez Garnica MD, PhD Vascular and Interventional Radiology onversion Trans action, Provider Unknown - 10/12/2017 9:57 AM PDT Progress Notes by Ambika Hanson RPH at 10/12/17956 Author: Ambika Hanson RPH Service: Pharmacy Author Type: Pharmacist Filed: 10/12/17956 Date of Service: 10/12/17956 Status: Signed Muffler Tender: Ambika Hanson RPH (Pharmacist) Patient is current ly having HD. RN was able to obtain a stat Vancomycin level at 0917 ([facility] HD session)=24.1 The level is elevated therefore I will not give a dose of Vancomycin today. A Vancomycin l evel should be obtained with the next dialysis session. Please contact pharmacy so that thi s level can be ordered at the correct time. Plan has been discussed with RN. onver quique Transaction, Provider Unknown - 10/11/2017 4:07 PM PDT Progress Notes by Mary Feldman RN at 10/11/17 160 Author: Mary Feldman RN Service: Nephrology Author Type: Registered Nurse Filed: 10/11/17 1608 Date of Service: 10/11/17 160 Status: Signed Muffler Tender: Mary Feldman RN (Registered Nurse) Called by primary RN d/t new Left HD CVC oozing blood. Dressing removed, biopatch saturated with blood and moderate amount of dried blood on skin. No active bleeding noted. Site clean ed per protocol and dressed with biopatch and tegaderm. Dr. Christianson notified. Luke Regan RN onver quique Transaction, Provider Unknown - 10/11/2017 2:52 PM PDT Case Management by Kalpana Triana RN at 10/11/17 3958 Author: Kalpana Triana RN Service: (none) Author Type: Registered Nurse Filed: 10/11/17 3943 Date of Service: 10/11/171451 Status: Signed Muffler Tender: Kalpana Triana RN (Registered Nurse) Discharge planning- Patient will most likely discharge back home with spouse when medically ready. His spouse with transport. She has been staying with him in the room and receives on e meal voucher per day. Unknown discharge date at this time. KALPANA TRIANA RN Case Management [phone] onver quique Transaction, Provider Unknown - 10/11/2017 1:45 PM PDT Pharmacy Note by Trinidad Coon RPH at 10/11/17 1345 Author: Trinidad Coon RPH Service: Pharmacy Author Type: Pharmacist Filed: 10/11/17 1345 Date of Service: 10/11/17 134 Status: Signed Muffler Tender: Trinidad Coon RPH (Pharmacist) Vancomycin monitoring. Pt is due to receive dialysis today, not yet started. Vancomycin has been given 3 out of last 4 days. We will check a random level 4 hours after the end of dialysis today to make sure medicatio n is not accumulating. Trinidad Coon alvor son, Douglas Woodard MD - 10/11/2017 6:58 AM PDT Progress Notes by DAMIÁN KuR3 at 10/11/17 0658 Author: DAMIÁN KuR3 Service: Hospitalist Author Type: Resident-Y2 Filed: 10/11/17 1616 Date of Service: 10/11/1758 Status: Attested Muffler Tender: DAMIÁN [email or web address] (Resident-Y3) Cosigner: Khanh Rangel MD at 10/14/17 1231 Attestation signed by Khanh Rangel MD at 10/14/17 1231 Encountered and examined patient in room 423 with Shyanne at bedside. Rounding with Lorena rousseau team. I agree with Dr. Barrow's progress note in its assessment and plan. he was ju st returned from surgery. Still slightly somnolent. Right upper extremity is less intense and less edematous, and decreased edema. Discussion h as been made with Dr. garnica 10/09 for surgical intervention of thrombolysis of the innominate veins in the near future. Left IJ hemodialysis catheter. Left antecubital IV. Chronic scaling of bilateral lower extremities. Chronic kidney disease: Discussed in person with Dr. Christianson briefly today. Right upper extremity cellulitis; resolved. Continue IV treatment for bacteremia. Continue with cefepime day #4. Status post vancomycin and ceftazidime day 1. Dr. Crespo following. Status post thrombectomy of innominate vein, and AV fistula recanalization. Also exchange o f new hemodialysis catheter on the left IJ by dr. Garnica today. Continue with IV Heparin. PROGRESS NOTE Pt: Carol Potter AGE/SEX: 52 y.o. male ROOM: 423/423-1 PCP: ANDRY LOFTON : 1965 PATIENT SUMMARY This is a 52-year-old male with an extensive and complex past medical history including end -stage renal disease secondary to diabetic nephropathy, diabetes mellitus type II, anemia of chronic renal failure, SVC stenosis, and hypertension who presents to the hospital with rig ht upper extremity pain and swelling. He was recently admitted to [facility] the end of July 13 for presumed abscess distal to the AV fistula. He returns again with worsening pain and e jay of the right upper extremity. Due to this he has missed dialysis for a week. He did hav e blood cultures drawn at his dialysis center which then grew gram-positive cocci. SUBJECTIVE Patient was seen and examined in his room with his present. He said this morning that his arm pain persisted. He said he is otherwise feeling well. He was npo for procedure today OBJECTIVE Temp: [96.7 F (35.9 C)-98.5 F (36.9 C)] 98.1 F (36.7 C) (10/11 1510) BP: (90-143)/(54-77) 120/58 (10/11 1510) Heart Rate: [72-80] 76 (10/11 1510) Resp: [8-18] 18 (10/11 1510) SpO2: [94 %-100 %] 98 % (10/11 1510) Weight: [86.5 kg (190 lb 11.2 oz)-88.1 kg (194 lb 3.6 oz)] 88.1 kg (194 lb 3.6 oz) (10/11 341) Physical Exam Constitutional: He is oriented to person, place, and time. Appears more comfortable then yesterday's exam, his arm is still very tense and his fingers are still dusky HENT: Head: Normocephalic and atraumatic. Right Ear: External ear normal. Left Ear: External ear normal. Mouth/Throat: No oropharyngeal exudate. Facial edema still present Eyes: Conjunctivae are normal. No scleral icterus. Neck: Neck is short and obese, no noted stridor Cardiovascular: Normal rate, regular rhythm and normal heart sounds. Left IJ dialysis catheter present in left neck, with bandage coming undone Pulmonary/Chest: Effort normal and breath sounds normal. Abdomina/Gl: Abdomen is soft and nontender to palpation, no masses or organomegaly were felt Musculoskeletal: Patient has edema of his right upper extremity that has involved his AV fistula, stable fro m prior exam Neurological: He is alert and oriented to person, place, and time. Skin: Patient skin somewhat dry, he has non-erythematous papules with some evidence of excoriatio n over his upper extremities and chest, his bilateral lower extremities he has dry scaly jessie k plaques Recent Results (from the past 24 hour(s)) POCT glucose Collection Time: 10/10/17 4:28 PM Result Value Ref Range GLUCOSE,POC SCREEN 133 (H) 65 - 99 mg/dL POCT glucose Collection Time: 10/10/17 9:29 PM Result Value Ref Range GLUCOSE,POC SCREEN 140 (H) 65 - 99 mg/dL aPTT Collection Time: 10/10/17 9:56 PM Result Value Ref Range APTT 76 (HH) 23 - 32 seconds Comprehensive metabolic panel Collection Time: 10/11/17 5:28 AM Result Value Ref Range SODIUM 135 135 - 145 mmol/L POTASSIUM 4.5 3.5 - 4.9 mmol/L CHLORIDE 99 99 - 109 mmol/L CO2 25 23 - 32 mmol/L ANION GAP AGAP 16 5 - 20 mmol/L GLUCOSE 79 65 - 99 mg/dL BUN 27 (H) 8 - 25 mg/dL CREATININE 7.2 (H) 0.70 - 1.30 mg/dL BUN/CREAT 4 CALCIUM 8.4 (L) 8.5 - 10.5 mg/dL TOTAL PROTEIN 7.0 6.3 - 8.2 g/dL Albumin 2.8 (L) 3.6 - 5.0 g/dL GLOBULIN 4.2 1.3 - 4.9 g/dL A/G 0.7 (L) 1.0 - 2.4 TBIL 0.7 0.1 - 1.5 mg/dL ALK PHOS 72 35 - 115 U/L AST 25 10 - 45 U/L ALT 17 10 - 65 U/L EGFR 8 (L) >60 mL/min/1.73m2 CBC W/Auto Diff (Reflex to Manual) Collection Time: 10/11/17 5:28 AM Result Value Ref Range WBC 5.55 3.80 - 11.00 K/uL RBC 3.48 (L) 4.20 - 5.70 M/uL HGB 10.1 (L) 13.2 - 17.0 g/dL HCT 30.6 (L) 39.0 - 50.0 % MCV 87.8 80.0 - 100.0 fl MCH 28.9 27.0 - 34.0 pg MCHC 32.9 32.0 - 35.5 g/dL RDW SD 54.3 (H) 37 - 53 fl PLT 165 150 - 400 K/uL MPV 7.0 fl DIFF TYPE AUTOMATED NEUTROPHILS 54.64 % LYMPHOCYTES 13.67 % MONOCYTES 13.07 % EOSINOPHILS 18.09 % BASOPHILS 0.53 % NEUTROPHILS ABS 3.03 1.90 - 7.40 K/uL LYMPHOCYTES ABS 0.76 (L) 1.00 - 3.90 K/uL MONOCYTES ABS 0.73 0.00 - 0.80 K/uL EOSINOPHILS ABS 1.00 (H) 0.00 - 0.50 K/uL BASOPHILS ABS 0.03 0.00 - 0.10 K/uL Magnesium Collection Time: 10/11/17 5:28 AM Result Value Ref Range MAGNESIUM 2.2 1.7 - 2.4 mg/dL Phosphorus Collection Time: 10/11/17 5:28 AM Result Value Ref Range PHOSPHORUS 4.8 2.3 - 4.8 mg/dL APTT Collection Time: 10/11/17 5:30 AM Result Value Ref Range APTT 54 (H) 23 - 32 seconds POCT glucose Collection Time: 10/11/17 5:37 AM Result Value Ref Range GLUCOSE,POC SCREEN 84 65 - 99 mg/dL MEDICATIONS allopurinol 100 mg Oral Daily alteplase 4 mg Intracatheter Once amLODIPine 10 mg Oral Daily budesonide-formoterol 2 puff Inhalation 2 times daily carvedilol 6.25 mg Oral BID WC heparin (porcine) 5000 unit/0.5mL 10,000 Units Intravenous Once heparin (porcine) 5000 unit/mL 10,000 Units Intracatheter Once levothyroxine 75 mcg Oral QAM AC lidocaine 10 mL Intradermal Once lidocaine 20 mL Infiltration Once lidocaine 30 mL Intradermal Once mupirocin 1 g Nasal BID naloxone 0.4 mg Intravenous Once oxyCODONE-acetaminophen 1 tablet Oral Once pneumococcal 23-valent vaccine 0.5 mL Intramuscular Once Immunization sevelamer 800 mg Oral TID WC sodium bicarbonate buffer 5 mL Infiltration Once sodium bicarbonate buffer 5 mL Infiltration Once sodium bicarbonate 1,300 mg Oral BID sodium chloride 10 mL Intravenous Q8H sodium chloride 10 mL Intravenous Q8H vancomycin 750 mg Intravenous See Admin Instructions heparin 50 units/mL 10 Units/kg/hr (10/11/17 1135) PRN: acetaminophen OR acetaminophen, albumin human, albuterol, dextrose, dextrose, diphenhyd rAMINE, fentaNYL, fentaNYL, heparin (porcine) 5000 unit/0.5mL, heparin (porcine) 5000 unit/0 .5mL, heparin flush (PF), HYDROcodone-acetaminophen, midazolam, midazolam, morphine, ondanse herber OR ondansetron, polyethylene glycol, zolpidem ASSESSMENT & PLAN AV fistula infection with Staphylococcus aureus bacteremia: Patient is being treated for a presumed infection of his AV fistula site versus septic thrombophlebitis. Cultures thus far are negative to date. He has been known to grow MRSA on previous cultures. ID is on board. W michael blood cell count is normal. - Infectious disease is on board, appreciate recommendations - Continue Vancomycin - AM CBC - F/U Culture reports ESRD w/Metabolic Acidosis: Patient has end-stage renal disease and receives dialysis Saturday s, Wednesdays, and Fridays. Metabolic acidosis has resolved, will receive dialysis per nephr olmiriany. - Appreciate nephrology's management - AM CMP w/Mg, Phos - Dialysis per nephrology Thrombosis of subclavian stent w/SVC syndrome: Patient had a stent placed in his subclavian vein in September 2016 by interventional radiology. He is due to have this recanalized this mor jennifer. 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 His l ast A1c was 5.5. Patient does not take any antidiabetic medications at home. - Diabetic diet - Continue to monitor POCT glucose HTN: Improving with dialysis, continue to monitor. Continue home medications. Gout: Continue allopurinol Hypothyroidism: Continue levothyroxine Anemia of chronic renal insufficiency: Stable continue monitor Dietary: Dietary has been consult and will provide education for appropriate renal diet. Problem list: Principal Problem: 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HCC) Active Problems: Metabolic acidosis Hypoalbuminemia Diabetes mellitus with ESRD (end-stage renal disease) HTN (hypertension) ESRD (end stage renal disease) on dialysis Anemia of chronic kidney failure Gout Staphylococcus aureus bacteremia Chest pain, unspecified Superior vena caval stenosis SVC syndrome Active comorbid conditions include: - essential hypertension, with renal disease (with CKD stage 5 or ESRD) - renal disease, CKD (ESRD) - nutritional anemia - COPD - mild intermittent asthma - diabetes (type 2 controlled (Hgb A1C < 6.5) with complications,) - PUD, past history of gastric ulcer - hypothyroidism Length of stay: 4 days Code status: Full Disposition: Inpatient Douglas Barrow MD-R2 10/11/2017 4:16 PM Dwain Ahuja MD - 10/10/2017 7:23 PM PDT Progress Notes by Dwain Lima MD at 10/10/17 932 Author: Dwain Lima MD Service: Infectious Disease Author Type: Physician Filed: 10/10/171925 Date of Service: 10/10/171922 Status: Signed Muffler Tender: Dwain Lima MD (Physician) [facility] Service: Infectious Diseases Progress Note Hospital Day: LOS: 3 days Post-Op Day: * No surgery found * CC: Follow-up of MRSA bacteremia SUBJECTIVE/OVERNIGHT EVENTS Patient continues to report right upper extremity pain, swelling. He reports no clinical improvement. He has been scheduled for an AV fistulogram and possible intervention for his thrombosis to [place]. Remains afebrile, without leukocytosis. REVIEW OF SYSTEMS GI: denies diarrhea, Constitutional: denies fever and chills and Integumentary: denies skin rash MEDICATIONS: allopurinol 100 mg Oral Daily amLODIPine 10 mg Oral Daily budesonide-formoterol 2 puff Inhalation 2 times daily carvedilol 6.25 mg Oral BID WC heparin (porcine) 5000 unit/0.5mL 10,000 Units Intravenous Once heparin (porcine) 5000 unit/mL 10,000 Units Intracatheter Once levothyroxine 75 mcg Oral QAM AC lidocaine 10 mL Intradermal Once mupirocin 1 g Nasal BID naloxone 0.4 mg Intravenous Once oxyCODONE-acetaminophen 1 tablet Oral Once [START ON 10/11/2017] pneumococcal 23-valent vaccine 0.5 mL Intramuscular Once Immuniza tion sevelamer 800 mg Oral TID WC sodium bicarbonate buffer 5 mL Infiltration Once sodium bicarbonate 1,300 mg Oral BID sodium chloride 10 mL Intravenous Q8H sodium chloride 10 mL Intravenous Q8H vancomycin 750 mg Intravenous See Admin Instructions heparin 50 units/mL 13 Units/kg/hr (10/10/17 1615) PRN Medications acetaminophen OR acetaminophen, albumin human, albuterol, dextrose, dextrose, diphenhyd rAMINE, fentaNYL, heparin (porcine) 5000 unit/0.5mL, heparin (porcine) 5000 unit/0.5mL, hepa rin flush (PF), HYDROcodone-acetaminophen, midazolam, morphine, ondansetron OR ondansetr on, polyethylene glycol, zolpidem PHYSICAL EXAM Vital Signs: BP 129/65 | Pulse 79 | Temp 97.8 F (36.6 C) | Resp 18 | Ht 1.702 m (5' 7.01") | Wt 86.5 kg (190 lb 11.2 oz) | SpO2 100% | BMI 29.86 kg/m Temp (24hrs), Av.8 F (36.6 C), Min:97.6 F (36.4 C), Max:98.2 F (36.8 C) General Appearance: Alert, cooperative, no distress and obese Head: Normocephalic, without obvious abnormality, atraumatic. Lips, mucosa, and tongue normal; dentition normal; no thrush present. Eyes: PERRL, conjunctiva/corneas clear, EOM's intact. Throat: Oropharynx clear without exudates Neck: Supple, symmetrical, trachea midline, no adenopathy; thyroid: no enlargement/tenderness/nodules; no carotid bruit or JVD Back: Symmetric, no curvature, ROM normal, no CVA tenderness Lungs: Clear to auscultation bilaterally, respirations unlabored Chest Wall: No tenderness or deformity Heart: Regular rate and rhythm, S1 and S2 normal, no murmur noted, rub or gallop. Abdomen: Soft, non-tender, bowel sounds active all four quadrants, no masses, no organomegaly Extremities: extensive edema, erythema and pain to palpation to the right upper extremity persists. Pulses: 2+ and symmetric all extremities Skin: Skin color, texture, turgor normal, no rashes or lesions Lymph nodes: Cervical, supraclavicular, inguinal and axillary nodes normal Neurologic: : normal without focal findings, mental status, speech normal, alert and oriented x3, P ERLA and reflexes normal and symmetric Normal genitalia. No Newman catheter. Venous access: Dialysis catheter No signs of infection. LABS: All labs reviewed. CBC: Lab Results Component Value Date WBC 5.36 10/10/2017 RBC 3.56 (L) 10/10/2017 HGB 10.4 (L) 10/10/2017 HCT 30.8 (L) 10/10/2017 MCV 86.7 10/10/2017 MCH 29.3 10/10/2017 MCHC 33.8 10/10/2017 RDW 52.1 10/10/2017 PLT 200 10/10/2017 MPV 6.9 10/10/2017 DIFFTYPE AUTOMATED 10/10/2017 CMP: Lab Results Component Value Date NA 134 (L) 10/10/2017 K 4.2 10/10/2017 CL 96 (L) 10/10/2017 CO2 27 10/10/2017 ANIONGAP 15 10/10/2017 GLUF 115 (H) 10/10/2017 BUN 35 (H) 10/10/2017 CREATININE 7.9 (H) 10/10/2017 BCR 4 10/10/2017 CA 7.9 (L) 10/10/2017 CA 6.1 (L) 04/02/2012 PROT 6.9 10/10/2017 ALB 2.8 (L) 10/10/2017 GLOB 4.1 10/10/2017 BILITOT 0.7 10/10/2017 ALP 78 10/10/2017 AST 22 10/10/2017 ALT 14 10/10/2017 EGFR 8 (L) 10/10/2017 MICROBIOLOGY Results Procedure Component Value Units Date/Time Anaerobic Culture W/Gram Stain [[id number]] Collected: 10/07/17 1611 Specimen: Abscess Updated: 10/10/17 0856 Specimen Description ABSCESS GRAM STAIN 1+ GRAM STAIN WBC'S SEEN GRAM STAIN NO ORGANISMS SEEN CULTURE NO GROWTH 3 DAYS Blood culture, 2 of 2 [[id number]] Collected: 10/09/17 1740 Specimen: Blood from Blood Updated: 10/09/171945 Blood culture, 1 of 2 [[id number]] Collected: 10/09/17 1710 Specimen: Blood from Blood Updated: 10/09/171945 Blood Culture Set 1 [[id number]] Collected: 10/07/17 0421 Specimen: Blood from Blood Updated: 10/09/17613 Specimen Description BLOOD SPECIAL REQUESTS L HAND CULTURE NO GROWTH 2 DAYS Blood culture, set 2 [[id number]] Collected: 10/07/17 0447 Specimen: Blood from Blood, peripheral draw Updated: 10/09/17613 Specimen Description BLOOD, PERIPHERAL DRAW SPECIAL REQUESTS LWRIST CULTURE NO GROWTH 2 DAYS IMAGING Reviewed images of : No new images for review PROBLEM LIST Principal Problem: 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HCC) Active Problems: Metabolic acidosis Hypoalbuminemia Diabetes mellitus with ESRD (end-stage renal disease) HTN (hypertension) ESRD (end stage renal disease) on dialysis Anemia of chronic kidney failure Gout Staphylococcus aureus bacteremia Chest pain, unspecified Superior vena caval stenosis SVC syndrome ASSESSMENT & PLAN The patient is a 52 y.o.-year-old male with the following problems: 1. Severe right upper extremity skin and soft tissue infection secondary to MRSA Symptoms are persistent, with persistent swelling of the right upper extremity, induration, severe pain. Patient without clinical response in his arm pain, largely a combination of thrombosis and infection. Patient's been scheduled for AV fistulogram and possible intervention tomorrow. We will allow for response to the above-mentioned intervention, if no improvement then we w ill repeat imaging of the right upper extremity. 2. AV fistula infection 3. Possible septic thrombophlebitis 4. Fluid collection, cultures no growth so far, likely hematoma. 5. End-stage renal disease on dialysis 6. 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 MRSA bacteremia. Continue with vancomycin, continue dosing after dialysis, pharmacy assi sting with dosing. Repeat blood cultures are no growth so far. Repeat blood cultures 2 set s today. 8. Right shoulder pain, swelling, decreased range of motion. Negative MRI of the right shou lder. Maintain right upper extremity elevation. Discussed with Dr. Rangel's team. Dwain Cervantes MD, MPH Infectious Diseases 10/10/2017 onvers ion Transaction, Provider Unknown - 10/10/2017 4:09 PM PDT Pharmacy Note by Haider Bhatt RPH at 10/10/17 160 Author: Haider Bhatt RPH Service: Pharmacy Author Type: Pharmacist Filed: 10/10/17 1601 Date of Service: 10/10/17 1609 Status: Signed Muffler Tender: Haider Bhatt RPH (Pharmacist) Vancomycin notes: Patient receiving dialysis today. Vancomycin dose sent at approx 1600 to be administered du ring last hour of HD. Cosmo Lang MD - 10/10/2017 1:43 PM PDTFormatting of this note might be different from the or iginal. Progress Notes by Cosmo Soria MD at 10/10/17 7490 Author: Cosmo Soria MD Service: Nephrology Author Type: Physician Filed: 10/10/17 2911 Date of Service: 10/10/17 1343 Status: Signed Muffler Tender: Cosmo Soria MD (Physician) [phone] LOS: 3 days Carol Potter is a 52 y.o. man whose PCP is Dr. ANDRY LOFTON. He is known to have ESRD as per PMH. He is known to me from multiple previous admissions (l ast time 10/07/2016 when he was admitted with severe hyperkalemia (no EKG changes). He has had multiple emergency room visits and hospitalizations since then, most recently he was admitted from 07/22/17-07/25/17 with abscess just distal to the AV fistula and received va ncomycin during dialysis. No surgical intervention was needed. He returned to the emergency room on Saturday with swelling and pain in the arm. Percussion of the arm was negative for deep vein thrombosis. At that time he was seen by vascular surgery and treatment for recurrent infection was advi sed. Apparently he was unable to be dialyzed on Saturday and had apparently missed dialysis on Sat. On Saturday he had blood cultures drawn and given vancomycin 1.5 gm (this was a teleph onic discussion with Dr. Christianson today). Blood cultures were reported to be growing gram + kym ci yesterday when I was called by [facility]. Today Dr. Christianson indicated growth was Staph aur eus. He received vancomycin and ceftazidime on Saturday and was discharged. I personally discuss ed the case telephonically with Dr. Ellison and ED at that time. He was felt to have a working AV fistula and was felt that he would be able to return to [facility] for Saturday for dialysis. He was not clinically uremic, hyperkalemic, acido tic or uremic at that time. He however returned to emergency room at [facility] with worsening of the swell ing. He was transferred back to [facility] He was afebrile and otherwise hemodynamically stable without any tachycardia/hypotension/se fatemeh hypertension/hypoxia. He had no leukocytosis. Potassium was minimally raised at 5.7 but he did have increased ani on gap metabolic acidosis expected after missing dialysis. MRSA screen was positive. Cta Upper Extremity Right With Iv Contrast 10/07/2017 showed: 1. 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 2. Extensive right upper extremity and chest wall subcutaneous edema 3. Approximately 4 x 1 x 5 m fluid collection at the anterior aspect of the distal biceps m uscle. 4. No other vascular thrombosis seen with patent ectatic bypass graft as seen previously. He was admitted and nephrology consultation was requested by Dr. Mtz for end-stage kidn ey disease management including hyperkalemia/metabolic acidosis. Vascular surgery had been contacted and I had a personal discussion with Dr. Jose Alfredo Ellison regarding same. 10/08/17 10/09/17 New IJ CVC was placed. Angioplasty for central stenosis was done. Full anticoagulation with heparin infusion/warfarin was recommended.. Uncomplicated HD. New left IJ temporary CVC has been functioning well. 10/10/17 He is seen with his . ON events noted. RAT was called yesterday given concern with respiratory distress. Heparin infusion was initiated. He feels he still has difficulty swallowing and feels swollen around his neck. Right arm remains swollen and uncomfortable. There are no documented episodes of fever, chills. PMH, PSH, Social history, medications, allergies, labs and imaging reviewed as appropriate. Previous history summarized as above. Prior lab data and imaging reviewed. Old records and labs were reviewed and summarized as above. Significant medical/surgical history: ESRD secondary to Biopsy-proven Diabetic nephropathy. He is dialyzed Saturday an d Saturday at [place] dialysis unit using right UE AVF (Dr. Meyer). He used to have left upper extremity brachio cephalic fistula which clotted off 10/2013. Right upper extremity brachioc ephalic fistula by Dr. Meyer 02/04 DM2 Secondary hyperparathyroidism Anemia of chronic renal failure Endocarditis HFPEF with Echo 09/13/2016 showing EF between 55 - 60 %. SVC stenosis s/p successful recanalization with angioplasty and provisional stent placem ent of subacute axillary and chronic right brachiocephalic, subclavian venous occlusions as described. 09/26/2016 Hemopericardium treated with pericardial drain. 09/07/16-09/15/[address] complicated st ay at [facility] including development of pericardial effusion s/p attempt at angioplasty for cent ral venous stenosis (done for poorly functioning right UE AVF). He had a pericardial drain p ut in which was removed prior to discharged. Family/social history: There is no family history of kidney disease with close family elier arzate being on dialysis at early age. He [...] was done and is negative. Examination: Constitutional: Lying in bed in some distress from swollen/painful right arm. No asterixis. Swollen head and neck. HEENT: Thick neck. + JVD, non icteric sclera. Cardiovascular: S1soft. No friction rub. No S3. No murmur. LUNGS: Effort fair. Scattered rales at bases. Abdominal: Soft. No distension and no mass. There is no rebound tenderness and no guarding. EXT: B/L LE with chronic venous changes. distal lower extremity pulses not palpable. Right arm held partially flexed with pain/swelling. Neurological: Drowsy but easily aroused. No asterixis. Normal sensorium. Speech fluent. Gai t not tested. Skin: Skin is warm and dry. Chronic skin thickening right AVF. Hemodialysis access: Left upper extremity brachiocephalic fistula, clotted Right UE brachiocephalic AVF with bruit but wit marked swelling/pain on movement. Blister noted on arm. Left IJ temporary CVC Vital Signs: BP 118/58 (BP Location: Left upper arm) | Pulse 76 | Temp 97.8 F (36.6 C) (Oral) | R cici 20 | Ht 1.702 m (5' 7.01") | Wt 88.3 kg (194 lb 10.7 oz) | SpO2 97% | BMI 30.48 kg/m Data evaluation: Lab Results Component Value Date BUN 35 (H) 10/10/2017 CREATININE 7.9 (H) 10/10/2017 EGFR 8 (L) 10/10/2017 NA 134 (L) 10/10/2017 K 4.2 10/10/2017 CL 96 (L) 10/10/2017 CO2 27 10/10/2017 CA 7.9 (L) 10/10/2017 PHOS 4.8 10/10/2017 MG 2.2 10/10/2017 ALB 2.8 (L) 10/10/2017 HGB 10.4 (L) 10/10/2017 WBC 5.36 10/10/2017 Lab Results Component Value Date HGB 10.4 (L) 10/10/2017 HGB 10.6 (L) 10/09/2017 HGB 10.7 (L) 10/09/2017 FERRITIN 933 (H) 09/10/2012 FERRITIN 245.0 04/28/2012 FERRITIN 139 04/02/2012 LABIRON 35 09/10/2012 LABIRON 20 04/28/2012 LABIRON 38 04/02/2012 Lab Results Component Value Date K 4.2 10/10/2017 K 4.5 10/09/2017 K 4.7 10/08/2017 . Lab Results Component Value Date NA 134 (L) 10/10/2017 NA 133 (L) 10/09/2017 NA 133 (L) 10/08/2017 Lab Results Component Value Date CO2 27 10/10/2017 CO2 25 10/09/2017 CO2 24 10/08/2017 Lab Results Component Value Date ANIONGAP 15 10/10/2017 Lab Results Component Value Date ALB 2.8 (L) 10/10/2017 ALB 3.1 (L) 10/09/2017 ALB 3.1 (L) 10/08/2017 Lab Results Component Value Date CA 7.9 (L) 10/10/2017 CA 8.2 (L) 10/09/2017 CA 8.3 (L) 10/08/2017 CA 6.1 (L) 04/02/2012 Lab Results Component Value Date PHOS 4.8 10/10/2017 PHOS 5.8 (H) 10/09/2017 PHOS 5.7 (H) 10/08/2017 Lab Results Component Value Date MG 2.2 10/10/2017 MG 2.5 (H) 10/09/2017 MG 2.5 (H) 10/08/2017 Lab Results Component Value Date PTHINTACT 255 (H) 04/02/2012 Lab Results Component Value Date URICACID 8.2 04/02/2012 Lab Results Component Value Date WBC 5.36 10/10/2017 WBC 5.17 10/09/2017 WBC 5.67 10/09/2017 Lab Results Component Value Date APTT 107 (HH) 10/10/2017 Nm Myocardial Perfusion Spect (stress And Rest) 10/09/2016 showed no evidence of ischemia. Echo 10/09/2016 showed EF between 60 - 65 %. Assessment and Recommendations: 1. ESRD on HD 2. MRSA bacteremia, possisvbly from pyomyositis/cellutis 3. Superior vena cava stenosis/SVC syndrome 4. Increased non-gap metabolic acidosis 5. Anemia of chronic renal failure He has recurrent MRSA bacteremia (? Abscess in close proximity to AVF) but also has signifi cant central venous stenosis. Concern also was with infected biceps possibly pyomyositis. As piration done 10/07/[address] Garnica is not showing any growth so far. Gram stain was -. He has MRSA on blood culture from Saturday10/03/17. He is afebrile with normal WBC count. However ir remains unsafe to use AV fistula given concern with such infectious etiologies. Temporary dialysis catheter has been replaced and angioplasty for central stenosis has been done by Dr. Garnica with plan for full anticoagulation with heparin infusion/warfarin. BP is Ok. He is clinically euvolemic. Anemia is mild. Plan to dialyze today Full anticoagulation with heparin infusion/warfarin. FU blood cultures done yesterday. As discussed with Dr. Cervantes plan is for 6 weeks of Abx treatment from date of - blood c ultures. Place tunneled CVC once bacteremia has resolved. [employer] evaluation for low K diet. I discussed with him the concept of SVC stenosis and interaction of BP/volume status/medica tions in maintaining electrolyte balance. 2 gm Na, 1 gm K, 1 gm PO4, 1 gm/kg protein diet. Please dose all medications for an eGFR of less than 15 ml/min/1.73 m2. No NSAIDS/ADAM 2 inhibitors, Aluminum/magnesium containing antacids, magnesium/phosphate con taining enemas. Fluid restriction 1.5 L in 24 hour period. Strict I/O Plan of care was discussed with Dr. Juan Carlos SORIA MD 10/10/2017 Portions of my previous notes have been carried over for continuity of care. He was seen earlier in the day and charting was completed later after rounds. Dictation software, [employer], was used which may contain error for similar sounding words. Pe rsonal communication is requested for any clarification. Prognosis guarded in view of multiple comorbid illnesses and ESRD allopurinol 100 mg Oral Daily amLODIPine 10 mg Oral Daily budesonide-formoterol 2 puff Inhalation 2 times daily carvedilol 6.25 mg Oral BID WC heparin (porcine) 5000 unit/0.5mL 10,000 Units Intravenous Once heparin (porcine) 5000 unit/mL 10,000 Units Intracatheter Once levothyroxine 75 mcg Oral QAM AC lidocaine 10 mL Intradermal Once mupirocin 1 g Nasal BID naloxone 0.4 mg Intravenous Once oxyCODONE-acetaminophen 1 tablet Oral Once [START ON 10/11/2017] pneumococcal 23-valent vaccine 0.5 mL Intramuscular Once Immuniza tion sevelamer 800 mg Oral TID WC sodium bicarbonate buffer 5 mL Infiltration Once sodium bicarbonate 1,300 mg Oral BID sodium chloride 10 mL Intravenous Q8H sodium chloride 10 mL Intravenous Q8H vancomycin 750 mg Intravenous See Admin Instructions Dr. Christianson will assume nephrology service as of 8 pm tonight. Eliseo Mittal PA-C - 10/10/2017 9:24 AM PDT Progress Notes by Eliseo Cat PA-C at 10/10/17923 Author: Eliseo Cat PA-C Service: Interventional Radiology Author Type: Physician A ssistant - Certified Filed: 10/10/17949 Date of Service: 10/10/17923 Status: Addendum Muffler Tender: Eliseo Cat PA-C (Physician Strategic Marketing Specialist - Certified) Related Notes: Original Note by Eliseo Cat PA-C (Physician Strategic Marketing Specialist - Certified) fi led at 10/10/17939 Interventional Radiology Progress Note Patient Name: Carol Potter Date of : 1965 Consulting Provider: Eliseo Cat PA-C Interval History/Subjective: Carol Potter is a 52 y.o. male. Patient with substantial pain in his RUE that started yester day and continues to worsen today. Hospitalist called this morning and is concerned about th e increased swelling. He was brought to IR lab yesterday with Dr. Garnica and his temporary CVC was exchanged along with some SVC angioplasty. He denies any SOB. His arm has been throbbing and the pain seems to be worsening. Patient i s having trouble tracking with his eyes. Girlfriend is present at bedside. Labs: 3 Day Labs: Recent Labs Lab 10/10/17 0616 10/09/17 0515 10/09/17 0019 10/08/17 0545 10/07/17 0339 10/05/17 1402 WBC 5.36 5.17 5.67 7.49 8.72 7.23 HGB 10.4* 10.6* 10.7* 11.9* 11.2* 11.1* HCT 30.8* 31.1* 32.1* 35.8* 33.9* 34.5* PLT 200 266 184 247 283 245 NA 134* 133* -- 133* 130* 133* K 4.2 4.5 -- 4.7 5.7* 4.8 CL 96* 95* -- 96* 100 97* CO2 27 25 -- 24 14* 19* BUN 35* 59* -- 46* 81* 71* CREATININE 7.9* 10.3* -- 9.5* 15* 15* PHOS 4.8 5.8* -- 5.7* -- -- MG 2.2 2.5* -- 2.5* -- -- PROT 6.9 7.2 -- 7.3 7.2 7.2 BILITOT 0.7 0.8 -- 0.9 0.6 0.7 INR -- -- 1.0 -- 1.0 1.0 TSH -- -- -- 14.800* -- -- HGBA1C -- -- -- 5.9 -- -- Pertinent Imaging/Procedures: Cta Upper Extremity Right With Iv Contrast Result Date: 10/07/2017 EXAM: RIGHT UPPER EXTREMITY CT ANGIOGRAM WITH CONTRAST EXAM DATE: 10/07/2017 04:03 AM. [facility] HISTORY: Right upper arm fistula, infection. COMPARISON: 10/05/2017. TECHNIQUE: Thin-sec tion axial images were acquired of the upper extremity in the arterial phase after administr ation of intravenous contrast. IV contrast: Iodinated. Post-processing: Multiplanar MPR and 3D MIP reformats. Other: None. In accordance with CT protocol optimization, one or more of t he following dose reduction techniques were utilized for this exam: automated exposure contr ol, adjustment of mA and/or KV based on patient size, or use of iterative reconstructive trent hnique. FINDINGS: Vascular Structures: Patient has a SVC and subclavian venous stent which a ppears thrombosed and collapsed. Remaining vascular structures appear widely patent, includi ng an ectatic brachial to cephalic vein fistula. The graft measures up to 29 x 20 mm in cros s section. No arterial high-grade stenosis seen. Other: Severe subcutaneous edema in the rig ht upper extremity and right chest wall. There is a fluid collection at the anterior aspect of the distal biceps muscle, measuring approximately 4 x 1 x 5 cm, axial image 330 series 6 and sagittal image 105. Collection is directly posterior and medial to the bypass graft. No other discrete fluid collection seen. No tracking soft tissue gas seen. Reactive adenopathy. 1. 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 2. Extensive right upper extrem ity and chest wall subcutaneous edema could be a combination of infection and related to dawson ous obstruction. 3. Approximately 4 x 1 x 5 m fluid collection at the anterior aspect of the distal biceps muscle. If there is clinical concern for abscess/pyomyositis, aspiration coul d be considered. 4. No other vascular thrombosis seen with patent ectatic bypass graft as se en previously. RADIA Electronically signed by Favio Abbasi MD on Oct 07 2017 4:43AM Re vianca Provider Line: [phone] ID: [id number] X-ray Chest 1 View Result Date: 10/07/2017 This is a non-reportable procedure without a radiologist report and is used for image [facility] [place] only Mri Shoulder Right Without Contrast Result Date: 10/08/2017 HISTORY: 52-year-old male with joint pain. Renal failure. On dialysis with stenosis of the superior vena cava TECHNIQUE: MR of the right shoulder. No recent similar prior study. FINDI NGS: The configuration of the AC joint demonstrates are [the, endplate irregularities and so me signal changes without joint space widening or proven erosions. There is some anterior di stal productive changes arising from the acromion which could contribute to rotator cuff imp ingement Low fajtnv-ho-gsfwf ratio renders is a low sensitivity examination. There is no avu lsive rotator cuff disease or retraction of myotendinous structures. Intrasubstance or nonhi gh-grade undersurface disease or be difficult to exclude especially about the distal anterio r supraspinatus insertion, no image 4 series 11 Low sensitivity evaluation the labrum but no proven labral defect about the superior labrum. Labral cyst There is pronounced edema and a nasarca and superficial tissues with ectatic vessels noted, likely related to the patient's venous disease Some degenerative changes of the glenohumeral articulation with some marginal productive changes about the right humerus but there is no unexplained skeletal edema. No f racture.. 1. Low sensitivity examination but there is no evidence of high-grade rotator cuff disease 2. Significant edema and vascular varicosities in the superficial tissues, but there is no j oint effusion. No abscess suggested, no organized fluid collection 3. No marrow signal cuadra es to suggest osteomyelitis although there are degenerative changes noted Electronically sig sven by Giovany Espitia MD on 10/08/2017 8:08 PM Us Upper Extremity Venous Doppler Right Result Date: 10/09/2017 HISTORY: 52 -year-old male with pain and swelling TECHNIQUE: Ultrasound of the right upper extremity deep venous systems. No prior similar study available for comparison. This is a true duplex examination with generation and interrogation of Doppler spectral analysis, colo r flow and investigation waveforms. Where investigated, these findings were unremarkable and supportive of the conclusions of the attached report. FINDINGS: Normal compression, color f low, respiratory variation and mechanical augmentation at all interrogated points demonstrat ed.. Duplex examination demonstrating normal color flow, Doppler spectral analysis as expect ed for the venous structures here. Incidental findings a nonorganized low density fluid grace ection in the region of the distal bicep extending to the medial tibial fossa could be a ser purvi. No report of trauma Vascular fistula about the humerus noted also, the somewhat distend ed vessel over a centimeter. There is some limitations due to edema 1. No evidence of deep venous thrombosis , right upper extremity 2. What may be a sessile t hin seroma or other fluid collection the antecubital fossa 3. Somewhat aneurysmally dilated fistula, with a luminal diameter measuring no well over centimeter Us Upper Extremity Venous Right Result Date: 10/05/2017 CAROL Jonny POTTER 1965 US UPPER EXTREMITY VENOUS DOPPLER RIGHT 10/05/2017 2:52 PM INDICATION: Arm pain COMPARISON: None TECHNIQUE: Right upper extremity venous duplex, grayscale, color- flow and spectral analysis FINDINGS: The internal jugular vein is patent. There is normal co serg flow of the internal jugular and subclavian veins. Normal augmentation is present along the proximal deep venous system. The cephalic vein is normally compressible. Mid basilic vei n is normal. Examination is limited due to patient soft tissue hardness. 1. No evidence of DVT. Ir Puncture Aspiration Result Date: 10/07/2017 IR PUNCTURE ASPIRATION dated 10/07/2017 12:47 PM CLINICAL DATA: History of right arm brachio cephalic fistula with recent MRSA bacteremia, right arm swelling and cellulitis with fluid c ollection seen adjacent to the fistula on CT of the right arm. Concern for abscess. COMPARIS ON STUDIES: CT arm 10/07/2017 PRIMARY FRONT COUNTER CLERK: Jimenez Garnica MD, PhD, RPVI OPERATIONS: 1. Right arm ultrasound and fluoroscopic guided soft tissue fluid aspiration. PROCEDURE: 2 ysician consent was obtained with myself and Dr. Colbert. Continuous cardiac monitoring was p erformed throughout the procedure. No sedation was used. Please see temporary dialysis karl ter of the same date for radiation dose. Following placement of a temporary dialysis cathete r, the right upper cavity was sterilely prepped and draped in usual fashion. Skin was locall y anesthetized with 1% lidocaine. Ultrasound images were obtained with grayscale and color d ocumenting the patent fistula and adjacent fluid collection without any color flow. A Yueh c entesis needle was advanced under ultrasound with difficult visualization secondary to the s evere soft tissue swelling. Subsequently a micropuncture needle was used and advanced into t he fluid collection followed by a wire confirmed fluoroscopically. The needle was exchanged to the micropuncture sheath which was then used to aspirate approximately 25 cc of dark loree k fluid which was sent for culture. FINDINGS: Ultrasound demonstrates a relatively anechoic soft tissue fluid collection adjacent to the right upper extremity fistula which has no colo r flow. Upon aspiration, it appears that this represents an old hematoma. Successful right upper extremity ultrasound-guided aspiration, cultures pending. Likely rep resenting old hematoma. Ir Central Venous Catheter Insertion Result Date: 10/09/2017 IR CENTRAL VENOUS CATHETER INSERTION dated 10/09/2017 9:00 AM CLINICAL DATA: Nonfunctioning left IJ temporary dialysis catheter COMPARISON STUDIES: Placement fluoroscopic images 018 and others PRIMARY FRONT COUNTER CLERK: Jimenez Garnica MD, PhD, [facility] OPERATIONS: 1. Replacement of temporary left internal jugular dialysis catheter 2. Left innominate/superior vena cava angioplasty 3. Left superior vena cava fibrin sheath stripping 4. Left subclavian/innomina te/SVC venogram. PROCEDURE: Informed consent was obtained from the patient. Continuous card iac monitoring was performed throughout the procedure. Medications: 50 mcg Fentanyl IV, 3000 units heparin IV Antibiotic: None Contrast: 30 cc Isovue 250 Fluoroscopy time: 1.1 minutes Radiation dose: 139 mGy air kerma Patient was sterilely prepped and draped in the usual [facility] ion about the left neck. [employer] Coordinator fluoroscopic image was obtained showing relatively unchanged position of the existing internal jugular catheter. An Amplatz wire was placed through the e xisting catheter into the inferior vena cava and the catheter was exchanged for a new 20 cm Mahurkar temporary dialysis catheter. Likely pre-existing catheter, the arterial port would not draw. Therefore, the catheter was removed and a 11 Afghan sheath was placed. Venogram im aging the left subclavian, left innominate and superior vena cava demonstrated thrombotic oc clusion at the central aspect of the left innominate vein extending into the superior vena c dianna. An 8mm by 4 cm angioplasty balloon was then inflated for 2 minutes over the occlusion f ollowed by a fibrin sheath stripping with to and fro motion of the inflated balloon in the s uperior vena cava. Repeat venogram demonstrated some flow but residual thrombus as well as r esidual flow-limiting stenosis at the innominate confluence. Patient was heparinized. Theref ore, a 12 mm x 4 cm angioplasty balloon was inflated for 5 minutes over the innominate confl uence. Follow-up venogram demonstrated orthodoxy of vigorous flow with some AP attenuation at the innominate confluence. The new Mahurkar catheter was readvanced and positioned with tip at the cavoatrial junction. All ports had good aspiration and forward flow and the dialy sis ports were locked with 1mL/5000 units heparin. The catheter was sutured in place. FINDIN GS: The existing catheter tip position is relatively unchanged, possibly slightly retracted just above the cavoatrial junction. Venogram via the left subclavian vein and imaging the le ft innominate and superior vena cava demonstrates a focal thrombotic occlusion in the centra l left innominate vein extending past the confluence into the superior vena cava. Following initial angioplasty, it is apparent that there is a severe focal stenosis at the innominate confluence. The existing right innominate and subclavian stents are occluded. The accessory hemiazygos vein is prominent and providing collateral flow around the occlusion. Following i nterventions, there is orthodoxy of flow through the left innominate vein and superior dawson a cava with some degree of residual AP attenuation at the innominate confluence. The new cat heter tip is at the cavoatrial junction. 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 Replacement of temporary left internal jugular catheter with tip at cavoatrial juncti on. PLAN: Patient needs to be fully anticoagulated to prevent recurrent thrombosis and loss of hemodialysis access. When infection concerns are resolved and is clinically appropriate, right arm fistulogram with attempt at recanalization of the right subclavian/innominate vein s is recommended. If not successful, the left IJ temporary catheter can be converted to a tu nneled catheter at that time. Discussed with Dr. Soria. Ir Central Venous Catheter Insertion Result Date: 10/07/2017 IR CENTRAL VENOUS CATHETER INSERTION dated 10/07/2017 10:30 AM IR CENTRAL VENOUS CATHETER IN SERTION dated 10/07/2017 10:30 AM PROCEDURES: 1. Ultrasound-guided access of the left digital marketing intern al jugular vein. 2. Ultrasound and fluoroscopically guided placement of a left IJ non-tunne led hemodialysis catheter CLINICAL DATA: History of right arm cellulitis with right upper e xtremity AV access compromised. Prior right innominate/subclavian venous occlusion with reoc clusion on CT upper extremity comparison. Need for hemodialysis access. COMPARISON STUDIES: CT right upper extremity 10/07/2017 and others CONSENT: Patient was hypersomnolent and recent ly given morphine and could not consent for himself. The risks, alternatives and benefits of the procedure were discussed with the patient's hospitalist Dr. Gila. 2 physician signed and verbal consent was given as witnessed by nursing staff. SEDATION: None CONTRAST: None F LUOROSCOPY TIME: 1.5 minutes and 25 mGy air kerma PROCEDURE: The left neck and chest were p repped and draped in usual sterile fashion. The skin and deep subcutaneous soft tissues ove rlying the right internal jugular vein were anesthetized with 1% lidocaine. A small skin ni ck was made with a #11 blade. Under real-time ultrasound guidance, using micropuncture techn ique, the left internal jugular vein was accessed and a microwire advanced. Over the microw rowdy a 5-Afghan micro- sheath was placed. A single ultrasound image was obtained documenting the access and this was placed in the medical record. Through the micro-sheath, an 0.035 Ro sen wire was advanced under fluoroscopic guidance but would not pass into the superior vena cava and repeatedly directed into the right innominate stent. Therefore, an angled glide cat heter and wire were used to navigate into the superior vena cava and subsequently the wire w as placed into the inferior vena cava. The tract was serially dilated to 12.-Afghan. A 20-c m Mahurkar 12-Afghan temporary hemodialysis catheter was placed. The wire was removed. The catheter tip was parked at the cavoatrial junction. The catheter was flushed to ensure prop er function. The base of the catheter was affixed to the skin using two 3-0 Ethilon anchori ng sutures. Sterile dressings were applied. Nursing staff then flushed each lumen of the ca theter with heparin following department protocol. COMPLICATIONS: None immediate. EBL: None. FINDINGS: Existing right subclavian and right innominate stents are noted. Patent left inte rnal jugular vein. A single fluoroscopic image was obtained documenting the catheter tip pos itioned in the cavoatrial junction. Successful placement of a left IJ non-tunneled hemodialysis catheter. PLAN: Once infection clears, consider recanalization of the subclavian/innominate stents versus placement of a tu nneled dialysis catheter. Note: Please see separate dictation for aspiration of right arm fl uid collection performed same time. 12: 45 PM Ir Guidance Vascular Access Us Result Date: 10/07/2017 This Point of Care (POC) ultrasound image has been reviewed and interpreted by the physicia n identified as the performing physician in the associated interpretation and report. Ir Us Guidance Imaging Result Date: 10/07/2017 This Point of Care (POC) ultrasound image has been reviewed and interpreted by the kuldeep romo identified as the performing physician in the associated interpretation and report. Physical Examination: Vitals: 10/10/17 0722 BP: 123/61 Pulse: 77 Resp: 20 Temp: 97.9 F (36.6 C) SpO2: 98% Physical Exam Constitutional: He appears distressed. HENT: Head: Normocephalic and atraumatic. Eyes: Left eye exhibits no discharge. No scleral icterus. Neck: Normal range of motion. Neck supple. No JVD present. No tracheal deviation present. Cardiovascular: Normal rate. Pulmonary/Chest: Effort normal. No respiratory distress. He has no wheezes. He has no rales . Musculoskeletal: He exhibits edema and tenderness. RUE brachiocephalic fistula in place with faintly palpable pulses; worsening swelling exten ding from shoulder to right hand and mild erythema over fistula site Lymphadenopathy: He has no cervical adenopathy. Neurological: He is alert. Skin: Skin is warm and dry. He is not diaphoretic. There is erythema. Psychiatric: Mood and affect normal. Assessment and Plan: 52 y/o male with hx of ESRD on HD admitted for AV fistula cellulitis and concern for sepsis . He is s/p US guided aspiration of right bicep and temporary hemodialysis catheter placemen t (10/07/17) and s/p temporary hemodialysis catheter exchange with SVC angioplasty (10/09/17) Cellulitis with worsening swelling - Suspect that he has severe stenosis that will require angioplasty and possible stenting. Patient ate breakfast at approximately 0900 this morning. We will schedule his AV fistulagram and intervention for tomorrow morning. He has faint pul ses but still palpable. Cultures show no growth from the biceps aspiration and blood culture s show no growth thus far. He remains afebrile and is not tachycardic. No leukocytosis noted on lab review. Continue pain management and keep arm elevated as much as possible throughou t today and tonight. Continue heparin for prophylaxis. We will make patient NPO after midnig ht for procedure tomorrow morning. IR to follow. Eliseo Cat PA-C Interventional Radiology Douglas Bess MD - 10/10/2017 6:43 AM PDT Progress Notes by Douglas Barrow MD-R3 at 10/10/17 0643 Author: DAMIÁN [id number] Service: Hospitalist Author Type: Resident-Y2 Filed: 10/10/17 1236 Date of Service: 10/10/17642 Status: Attested Muffler Tender: DAMIÁN [id number] (Resident-Y3) Cosigner: Khanh Rangel MD at 10/10/17 1506 Attestation signed by Khanh Rangel MD at 10/10/17 1506 Encountered and examined patient in room 423 with caring at bedside. Rounding with Res idency team. I agree with Dr. Barrow's progress note in its assessment and plan. Patient complained of increased right arm pain. Right upper extremity is tense edematous, and increased edema. More mottling is noted of th e right hand today. Discussion has been made with Dr. garnica today for surgical intervention o f thrombolysis of the innominate veins in the near future. Patient's high risk for compartme nt syndrome and/or ischemia of the right arm. It appears the patient is having worsening thr ombosis and worsening SVC syndrome. I shared my concern with Dr. Soria as well. Left IJ hemodialysis catheter. Left antecubital IV. Chronic scaling of bilateral lower extremities. Chronic kidney disease: Discussed in person with Dr. Soria briefly today. He will plan for dialysis. Right upper extremity cellulitis; resolved. Continue IV treatment for bacteremia. Continue with cefepime day #3. Status post vancomycin and ceftazidime day 1. Dr. Crespo following. PROGRESS NOTE Pt: Carol Potter AGE/SEX: 52 y.o. male ROOM: 423/423-1 PCP: ANDRY LOFTON : 1965 PATIENT SUMMARY This is a 52-year-old male with an extensive and complex past medical history including end -stage renal disease secondary to diabetic nephropathy, diabetes mellitus type II, anemia of chronic renal failure, SVC stenosis, and hypertension who presents to the hospital with rig ht upper extremity pain and swelling. He was recently admitted to [facility] the end of July 13 for presumed abscess distal to the AV fistula. He returns again with worsening pain and e jay of the right upper extremity. Due to this he has missed dialysis for a week. He did hav e blood cultures drawn at his dialysis center which then grew gram-positive cocci. SUBJECTIVE A RAT was called overnight as the patient began to have increasing pain in his right upper extremity with numbness and tingling, he was evaluated and given pain medicine and Xanax. OBJECTIVE Temp: [97.6 F (36.4 C)-98.2 F (36.8 C)] 97.8 F (36.6 C) (10/10 1128) BP: (91-123)/(51-63) 118/58 (10/10 112) Heart Rate: [70-78] 76 (10/10 1128) Resp: [18-20] 20 (10/10 1128) SpO2: [96 %-100 %] 97 % (10/10 1128) Weight: [87 kg (191 lb 12.8 oz)-88.3 kg (194 lb 10.7 oz)] 88.3 kg (194 lb 10.7 oz) (10/10 0251) Physical Exam Constitutional: He is oriented to person, place, and time. Patient is lying in bed and is in obvious pain, almost in tears, his fingers of hir right h and appear to be dusky this AM HENT: Head: Normocephalic and atraumatic. Right Ear: External ear normal. Left Ear: External ear normal. Mouth/Throat: No oropharyngeal exudate. He now has facial edema Eyes: Conjunctivae are normal. No scleral icterus. Neck: Neck is short and obese, no noted stridor Cardiovascular: Normal rate, regular rhythm and normal heart sounds. Left IJ dialysis catheter present in left neck, with bandage coming undone Pulmonary/Chest: Effort normal and breath sounds normal. Abdomina/Gl: Abdomen is soft and nontender to palpation, no masses or organomegaly were felt Musculoskeletal: Patient has edema of his right upper extremity that has involved his AV fistula, slightly w orse than prior exam, pulse is faintly palpable now, AV fistula is palpable with thrill pres ent. There is also an area of slight induration just distal to the fistula that is also tend er to palpation. There are bandages over this area very clean dry and intact., fingers appea r dusky Neurological: He is alert and oriented to person, place, and time. Skin: Patient skin somewhat dry, he has non-erythematous papules with some evidence of excoriatio n over his upper extremities and chest Recent Results (from the past 24 hour(s)) POCT glucose Collection Time: 10/09/17 9:39 PM Result Value Ref Range GLUCOSE,POC SCREEN 139 (H) 65 - 99 mg/dL POCT glucose Collection Time: 10/10/17 5:45 AM Result Value Ref Range GLUCOSE,POC SCREEN 141 (H) 65 - 99 mg/dL Comprehensive metabolic panel Collection Time: 10/10/17 6:16 AM Result Value Ref Range SODIUM 134 (L) 135 - 145 mmol/L POTASSIUM 4.2 3.5 - 4.9 mmol/L CHLORIDE 96 (L) 99 - 109 mmol/L CO2 27 23 - 32 mmol/L ANION GAP AGAP 15 5 - 20 mmol/L GLUCOSE 115 (H) 65 - 99 mg/dL BUN 35 (H) 8 - 25 mg/dL CREATININE 7.9 (H) 0.70 - 1.30 mg/dL BUN/CREAT 4 CALCIUM 7.9 (L) 8.5 - 10.5 mg/dL TOTAL PROTEIN 6.9 6.3 - 8.2 g/dL Albumin 2.8 (L) 3.6 - 5.0 g/dL GLOBULIN 4.1 1.3 - 4.9 g/dL A/G 0.7 (L) 1.0 - 2.4 TBIL 0.7 0.1 - 1.5 mg/dL ALK PHOS 78 35 - 115 U/L AST 22 10 - 45 U/L ALT 14 10 - 65 U/L EGFR 8 (L) >60 mL/min/1.73m2 CBC W/Auto Diff (Reflex to Manual) Collection Time: 10/10/17 6:16 AM Result Value Ref Range WBC 5.36 3.80 - 11.00 K/uL RBC 3.56 (L) 4.20 - 5.70 M/uL HGB 10.4 (L) 13.2 - 17.0 g/dL HCT 30.8 (L) 39.0 - 50.0 % MCV 86.7 80.0 - 100.0 fl MCH 29.3 27.0 - 34.0 pg MCHC 33.8 32.0 - 35.5 g/dL RDW SD 52.1 37 - 53 fl PLT 200 150 - 400 K/uL MPV 6.9 fl DIFF TYPE AUTOMATED NEUTROPHILS 57.77 % LYMPHOCYTES 10.44 % MONOCYTES 13.92 % EOSINOPHILS 17.34 % BASOPHILS 0.53 % NEUTROPHILS ABS 3.10 1.90 - 7.40 K/uL LYMPHOCYTES ABS 0.56 (L) 1.00 - 3.90 K/uL MONOCYTES ABS 0.75 0.00 - 0.80 K/uL EOSINOPHILS ABS 0.93 (H) 0.00 - 0.50 K/uL BASOPHILS ABS 0.03 0.00 - 0.10 K/uL Magnesium Collection Time: 10/10/17 6:16 AM Result Value Ref Range MAGNESIUM 2.2 1.7 - 2.4 mg/dL Phosphorus Collection Time: 10/10/17 6:16 AM Result Value Ref Range PHOSPHORUS 4.8 2.3 - 4.8 mg/dL aPTT - Q6 starting in 6 hours x 2 Collection Time: 10/10/17 6:16 AM Result Value Ref Range APTT 107 (HH) 23 - 32 seconds POCT glucose Collection Time: 10/10/17 11:28 AM Result Value Ref Range GLUCOSE,POC SCREEN 168 (H) 65 - 99 mg/dL MEDICATIONS allopurinol 100 mg Oral Daily amLODIPine 10 mg Oral Daily budesonide-formoterol 2 puff Inhalation 2 times daily carvedilol 6.25 mg Oral BID WC heparin (porcine) 5000 unit/0.5mL 10,000 Units Intravenous Once heparin (porcine) 5000 unit/mL 10,000 Units Intracatheter Once levothyroxine 75 mcg Oral QAM AC lidocaine 10 mL Intradermal Once mupirocin 1 g Nasal BID naloxone 0.4 mg Intravenous Once oxyCODONE-acetaminophen 1 tablet Oral Once [START ON 10/11/2017] pneumococcal 23-valent vaccine 0.5 mL Intramuscular Once Immuniza tion sevelamer 800 mg Oral TID WC sodium bicarbonate buffer 5 mL Infiltration Once sodium bicarbonate 1,300 mg Oral BID sodium chloride 10 mL Intravenous Q8H sodium chloride 10 mL Intravenous Q8H vancomycin 750 mg Intravenous See Admin Instructions heparin 50 units/mL 15 Units/kg/hr (10/10/17 0817) PRN: acetaminophen OR acetaminophen, albumin human, albuterol, dextrose, dextrose, diphenhyd rAMINE, fentaNYL, heparin (porcine) 5000 unit/0.5mL, heparin (porcine) 5000 unit/0.5mL, hepa rin flush (PF), HYDROcodone-acetaminophen, midazolam, morphine, ondansetron OR ondansetr on, polyethylene glycol, zolpidem ASSESSMENT & PLAN 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 This is been aspirated and culture s are pending. He has grown staph aureus bacteremia from prior blood cultures and is being t reated as an MRSA bacteremia. Cultures are negative to date. - Infectious disease is on board, appreciate recommendations - Continue Vancomycin - AM CBC - F/U Culture reports ESRD w/Metabolic Acidosis: Patient has end-stage renal disease and receives dialysis Saturday s, Wednesdays, and Fridays. Metabolic acidosis has resolved, will receive dialysis again toviral avina. - Appreciate nephrology's management - AM CMP w/Mg, Phos - Dialysis per nephrology Thrombosis of subclavian stent w/SVC syndrome: Patient had a stent placed in his subclavian vein in September 2016 by interventional radiology. This appears to have stenosis. Patient is c omplaining of worsening pain in his right upper extremity. - Patient is to be on heparin, will need long-term adequate anticoagulation - NPO after midnight for procedure in AM. DMII: Patient has a diagnosis of diabetes mellitus type II with diabetic nephropathy. His l ast A1c was 5.5. Patient does not take any antidiabetic medications at home. - Diabetic diet - Continue to monitor POCT glucose HTN: Improving with dialysis, continue to monitor. Continue home medications. Gout: Continue allopurinol Hypothyroidism: Continue levothyroxine Anemia of chronic renal insufficiency: Stable continue monitor Dietary: Dietary has been consult and will provide education for appropriate renal diet. Problem list: Principal Problem: 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HCC) Active Problems: Metabolic acidosis Hypoalbuminemia Diabetes mellitus with ESRD (end-stage renal disease) HTN (hypertension) ESRD (end stage renal disease) on dialysis Anemia of chronic kidney failure Gout Staphylococcus aureus bacteremia Chest pain, unspecified Superior vena caval stenosis SVC syndrome Active comorbid conditions include: - essential hypertension, with renal disease (with CKD stage 5 or ESRD) - renal disease, CKD (ESRD) - nutritional anemia - COPD - mild intermittent asthma - diabetes (type 2 controlled (Hgb A1C < 6.5) with complications,) - PUD, past history of gastric ulcer - hypothyroidism Length of stay: 3 days Code status: Full Disposition: Inpatient Douglas Barrow MD-R2 10/10/2017 12:36 PM Dwain Ahuja MD - 10/09/2017 5:23 PM PDT Progress Notes by Dwain Lima MD at 10/09/17 172 Author: Dwain Lima MD Service: Infectious Disease Author Type: Physician Filed: 10/09/17 173 Date of Service: 10/09/171722 Status: Signed Muffler Tender: Dwain Lima MD (Physician) [facility] Service: Infectious Diseases Progress Note Hospital Day: LOS: 2 days Post-Op Day: * No surgery found * CC: Follow-up on MRSA bacteremia, right arm cellulitis. SUBJECTIVE/OVERNIGHT EVENTS Patient remains hemodynamically stable. He is due for dialysis today. Patient is being treated with intravenous vancomycin. The patient had a malfunctioning temp orary dialysis catheter and he had that replaced earlier today. Hospital to communicate with diabetes and dialysis, and they faxed the report of the blood cultures obtained on 10/04/17. Only one set was obtained from the dialysis cannulation, show ing evidence of MRSA susceptible to vancomycin with TERRANCE of 0.5, resistant to clindamycin. Riley sceptible to tetracycline/doxycycline. Today the patient continues to report to the right upper extremity pain. He was evaluated w ith a shoulder MRI yesterday which was unremarkable with no evidence of effusion or infectio n. The patient reports that his pain is pretty much unchanged compared to when he first pres ented to the hospital. REVIEW OF SYSTEMS GI: denies diarrhea, Constitutional: denies fever and chills and Integumentary: denies skin rash MEDICATIONS: allopurinol 100 mg Oral Daily amLODIPine 10 mg Oral Daily budesonide-formoterol 2 puff Inhalation 2 times daily carvedilol 6.25 mg Oral BID WC heparin (porcine) 5000 unit/0.5mL 10,000 Units Intravenous Once heparin (porcine) 5000 unit/0.5mL 5,000 Units Subcutaneous 3 times per day heparin (porcine) 5000 unit/mL 10,000 Units Intracatheter Once levothyroxine 75 mcg Oral QAM AC lidocaine 10 mL Intradermal Once mupirocin 1 g Nasal BID naloxone 0.4 mg Intravenous Once sevelamer 800 mg Oral TID WC sodium bicarbonate buffer 5 mL Infiltration Once sodium bicarbonate 1,300 mg Oral BID sodium chloride 10 mL Intravenous Q8H sodium chloride 10 mL Intravenous Q8H vancomycin (VANCOCIN) IVPB < 1 G 750 mg Intravenous Once vancomycin 750 mg Intravenous See Admin Instructions vancomycin 750 mg Intravenous Once PRN Medications acetaminophen OR acetaminophen, albumin human, albuterol, dextrose, dextrose, fentaNYL, heparin (porcine), heparin flush (PF), HYDROcodone-acetaminophen, midazolam, morphine, onda nsetron OR ondansetron, polyethylene glycol, zolpidem PHYSICAL EXAM Vital Signs: BP 119/60 | Pulse 76 | Temp 97.6 F (36.4 C) | Resp 18 | Ht 1.702 m (5' 7.01") | Wt 88 kg (194 lb 0.1 oz) | SpO2 99% | BMI 30.38 kg/m Temp (24hrs), Av F (36.7 C), Min:97.6 F (36.4 C), Max:98.3 F (36.8 C) General Appearance: Alert, cooperative, no distress and obese Head: Normocephalic, without obvious abnormality, atraumatic. Lips, mucosa, and tongue normal; dentition normal; no thrush present. Eyes: PERRL, conjunctiva/corneas clear, EOM's intact. Throat: Oropharynx clear without exudates Neck: Supple, symmetrical, trachea midline, no adenopathy; thyroid: no enlargement/tenderness/nodules; no carotid bruit or JVD Back: Symmetric, no curvature, ROM normal, no CVA tenderness Lungs: Clear to auscultation bilaterally, respirations unlabored Chest Wall: No tenderness or deformity Heart: Regular rate and rhythm, S1 and S2 normal, no murmur noted, rub or gallop. Abdomen: Soft, non-tender, bowel sounds active all four quadrants, no masses, no organomegaly Extremities: extensive edema, erythema and pain to palpation to the right upper extremity persists. Pulses: 2+ and symmetric all extremities Skin: Skin color, texture, turgor normal, no rashes or lesions Lymph nodes: Cervical, supraclavicular, inguinal and axillary nodes normal Neurologic: : normal without focal findings, mental status, speech normal, alert and oriented x3, P ERLA and reflexes normal and symmetric Normal genitalia. No Newman catheter. Venous access: Dialysis catheter No signs of infection. LABS: All labs reviewed. CBC: Lab Results Component Value Date WBC 5.17 10/09/2017 RBC 3.60 (L) 10/09/2017 HGB 10.6 (L) 10/09/2017 HCT 31.1 (L) 10/09/2017 MCV 86.4 10/09/2017 MCH 29.5 10/09/2017 MCHC 34.1 10/09/2017 RDW 54.3 (H) 10/09/2017 PLT 266 10/09/2017 MPV 7.0 10/09/2017 DIFFTYPE AUTOMATED 10/09/2017 CMP: Lab Results Component Value Date NA 133 (L) 10/09/2017 K 4.5 10/09/2017 CL 95 (L) 10/09/2017 CO2 25 10/09/2017 ANIONGAP 18 10/09/2017 GLUF 79 10/09/2017 BUN 59 (H) 10/09/2017 CREATININE 10.3 (H) 10/09/2017 BCR 6 10/09/2017 CA 8.2 (L) 10/09/2017 CA 6.1 (L) 04/02/2012 PROT 7.2 10/09/2017 ALB 3.1 (L) 10/09/2017 GLOB 4.1 10/09/2017 BILITOT 0.8 10/09/2017 ALP 79 10/09/2017 AST 24 10/09/2017 ALT 17 10/09/2017 EGFR 6 (L) 10/09/2017 MICROBIOLOGY Results Procedure Component Value Units Date/Time Anaerobic Culture W/Gram Stain [[id number]] Collected: 10/07/17 1611 Specimen: Abscess Updated: 10/09/17 1022 Specimen Description ABSCESS GRAM STAIN 1+ GRAM STAIN WBC'S SEEN GRAM STAIN NO ORGANISMS SEEN CULTURE NO GROWTH 2 DAYS Blood Culture Set 1 [[id number]] Collected: 10/07/17 0421 Specimen: Blood from Blood Updated: 10/09/17613 Specimen Description BLOOD SPECIAL REQUESTS L HAND CULTURE NO GROWTH 2 DAYS Blood culture, set 2 [[id number]] Collected: 10/07/17 0447 Specimen: Blood from Blood, peripheral draw Updated: 10/09/17613 Specimen Description BLOOD, PERIPHERAL DRAW SPECIAL REQUESTS LWRIST CULTURE NO GROWTH 2 DAYS MRSA by PCR [[id number]] (Abnormal) Collected: 10/07/17 0650 Specimen: Nasopharyngeal from Nares(Nose) Updated: 10/07/17817 SOURCE NARES(NOSE) MRSA PCR POSITIVE for MRSA by PCR (A) IMAGING MRI of the right shoulder obtained 10/08/17 IMPRESSION: 1. Low sensitivity examination but there is no evidence of high-grade rotator cuff disease 2. Significant edema and vascular varicosities in the superficial tissues, but there is no joint effusion. No abscess suggested, no organized fluid collection 3. No marrow signal changes to suggest osteomyelitis although there are degenerative change s noted PROBLEM LIST Principal Problem: 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HCC) Active Problems: Metabolic acidosis Hypoalbuminemia Diabetes mellitus with ESRD (end-stage renal disease) HTN (hypertension) ESRD (end stage renal disease) on dialysis Anemia of chronic kidney failure Gout Staphylococcus aureus bacteremia Chest pain, unspecified Superior vena caval stenosis SVC syndrome ASSESSMENT & PLAN The patient is a 52 y.o.-year-old male with the following problems: 1. Severe right upper extremity skin and soft tissue infection secondary to MRSA Symptoms are persistent, with persistent swelling of the right upper extremity, induration, severe pain. Patient without clinical response in his arm pain, largely a combination of thrombosis and infection. 2. AV fistula infection 3. Possible septic thrombophlebitis 4. Fluid collection, cultures no growth so far, likely hematoma. 5. End-stage renal disease on dialysis 6. 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 MRSA bacteremia. Continue with vancomycin, continue dosing after dialysis, pharmacy assi sting with dosing. Repeat blood cultures are no growth so far. Repeat blood cultures 2 set s today. 8. Right shoulder pain, swelling, decreased range of motion. Negative MRI of the right shou lder. Maintain right upper extremity elevation. Discussed with Dr. Rangel's team. Dwain Cervantes MD, MPH Infectious Diseases 10/09/2017 osmo Soria MD - 10/09/2017 5:00 PM PDTFormatting of this note might be different from the betina dasia. Progress Notes by Cosmo Soria MD at 10/09/17 1700 Author: Cosmo Soria MD Service: Nephrology Author Type: Physician Filed: 10/10/17 1410 Date of Service: 10/09/17 170 Status: Addendum Muffler Tender: Cosmo Soria MD (Physician) Related Notes: Original Note by Cosmo Soria MD (Physician) filed at 10/10/17 0649 [id number] LOS: 2 days Carol Potter is a 52 y.o. man whose PCP is Dr. ANDRY LOFTON. He is known to have ESRD as per [facility]. He is known to me from multiple previous admissions (l ast time 10/07/2016 when he was admitted with severe hyperkalemia (no EKG changes). He has had multiple emergency room visits and hospitalizations since then, most recently he was admitted from 07/22/17-07/25/17 with abscess just distal to the AV fistula and received va ncomycin during dialysis. No surgical intervention was needed. He returned to the emergency room on Saturday with swelling and pain in the arm. Percussion of the arm was negative for deep vein thrombosis. At that time he was seen by vascular surgery and treatment for recurrent infection was advi sed. Apparently he was unable to be dialyzed on Saturday and had apparently missed dialysis on Sat. On Saturday he had blood cultures drawn and given vancomycin 1.5 gm (this was a teleph onic discussion with Dr. Christianson today). Blood cultures were reported to be growing gram + kym ci yesterday when I was called by [facility]. Today Dr. Christianson indicated growth was Staph aur eus. He received vancomycin and ceftazidime on Saturday and was discharged. I personally discuss ed the case telephonically with Dr. Ellison and ED at that time. He was felt to have a working AV fistula and was felt that he would be able to return to [facility] for Saturday for dialysis. He was not clinically uremic, hyperkalemic, acido tic or uremic at that time. He however returned to emergency room at [facility] with worsening of the swell ing. He was transferred back to [facility] He was afebrile and otherwise hemodynamically stable without any tachycardia/hypotension/se fatemeh hypertension/hypoxia. He had no leukocytosis. Potassium was minimally raised at 5.7 but he did have increased ani on gap metabolic acidosis expected after missing dialysis. MRSA screen was positive. Cta Upper Extremity Right With Iv Contrast 10/07/2017 showed: 1. 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 2. Extensive right upper extremity and chest wall subcutaneous edema 3. Approximately 4 x 1 x 5 m fluid collection at the anterior aspect of the distal biceps m uscle. 4. No other vascular thrombosis seen with patent ectatic bypass graft as seen previously. He was admitted and nephrology consultation was requested by Dr. Mtz for end-stage kidn ey disease management including hyperkalemia/metabolic acidosis. Vascular surgery had been contacted and I had a personal discussion with Dr. Jose Alfredo Ellison regarding same. 10/08/17 10/09/17 He was seen on HD with RN, Gladys. New left IJ temporary CVC has been functioning well. He was seen with his and son. He feels he still has difficulty swallowing and feels swollen around his neck. Today morning' events noted. New IJ CVC was placed. Angioplasty for central stenosis was do ne. Full anticoagulation with heparin infusion/warfarin was recommended.. There are no documented episodes of fever, chills, nausea, vomiting, diarrhea, shortness of breath, chest pain, cough. PMH, PSH, Social history, medications, allergies, labs and imaging reviewed as appropriate. Previous history summarized as above. Prior lab data and imaging reviewed. Old records and labs were reviewed and summarized as above. Significant medical/surgical history: ESRD secondary to Biopsy-proven Diabetic nephropathy. He is dialyzed Saturday an d Saturday at [place] dialysis unit using right UE AVF (Dr. Meyer). He used to have left upper extremity brachio cephalic fistula which clotted off 10/2013. Right upper extremity brachioc ephalic fistula by Dr. Meyer 02/04 DM2 Secondary hyperparathyroidism Anemia of chronic renal failure Endocarditis HFPEF with Echo 09/13/2016 showing EF between 55 - 60 %. SVC stenosis s/p successful recanalization with angioplasty and provisional stent placem ent of subacute axillary and chronic right brachiocephalic, subclavian venous occlusions as described. 09/26/2016 Hemopericardium treated with pericardial drain. 09/07/16-09/15/[address] complicated [address] ay at [facility] including development of pericardial effusion s/p attempt at angioplasty for cent ral venous stenosis (done for poorly functioning right UE AVF). He had a pericardial drain p nj in which was removed prior to discharged. Family/social history: There is no family history of kidney disease with close family elier arzate being on dialysis at early age. He [...] was done and is negative. Examination: Constitutional: Lying in bed in some distress from swollen/painful right arm. No asterixis. Swollen head and neck. HEENT: Thick neck. + JVD, non icteric sclera. Cardiovascular: S1soft. No friction rub. No S3. No murmur. LUNGS: Effort fair. Scattered rales at bases. Abdominal: Soft. No distension and no mass. There is no rebound tenderness and no guarding. EXT: B/L LE with chronic venous changes. distal lower extremity pulses not palpable. Right arm held partially flexed with pain/swelling. Neurological: Drowsy but easily aroused. No asterixis. Normal sensorium. Speech fluent. Gai t not tested. Skin: Skin is warm and dry. Chronic skin thickening right AVF. Hemodialysis access: Left upper extremity brachiocephalic fistula, clotted Right UE brachiocephalic AVF with bruit but wit marked swelling/pain on movement. Blister noted on arm. Vital Signs: BP 115/58 (BP Location: Left upper arm) | Pulse 76 | Temp 97.8 F (36.6 C) (Oral) | R cici 18 | Ht 1.702 m (5' 7.01") | Wt 87 kg (191 lb 12.8 oz) | SpO2 98% | BMI 30.03 kg/m Data evaluation: Lab Results Component Value Date BUN 59 (H) 10/09/2017 CREATININE 10.3 (H) 10/09/2017 EGFR 6 (L) 10/09/2017 NA 133 (L) 10/09/2017 K 4.5 10/09/2017 CL 95 (L) 10/09/2017 CO2 25 10/09/2017 CA 8.2 (L) 10/09/2017 PHOS 5.8 (H) 10/09/2017 MG 2.5 (H) 10/09/2017 ALB 3.1 (L) 10/09/2017 HGB 10.6 (L) 10/09/2017 WBC 5.17 10/09/2017 Lab Results Component Value Date HGB 10.6 (L) 10/09/2017 HGB 11.9 (L) 10/08/2017 HGB 11.2 (L) 10/07/2017 FERRITIN 933 (H) 09/10/2012 FERRITIN 245.0 04/28/2012 FERRITIN 139 04/02/2012 LABIRON 35 09/10/2012 LABIRON 20 04/28/2012 LABIRON 38 04/02/2012 Lab Results Component Value Date K 4.5 10/09/2017 K 4.7 10/08/2017 K 5.7 (H) 10/07/2017 . Lab Results Component Value Date NA 133 (L) 10/09/2017 NA 133 (L) 10/08/2017 NA 130 (L) 10/07/2017 Lab Results Component Value Date CO2 25 10/09/2017 CO2 24 10/08/2017 CO2 14 (LL) 10/07/2017 Lab Results Component Value Date ANIONGAP 18 10/09/2017 Lab Results Component Value Date ALB 3.1 (L) 10/09/2017 ALB 3.1 (L) 10/08/2017 ALB 2.8 (L) 10/07/2017 Lab Results Component Value Date CA 8.2 (L) 10/09/2017 CA 8.3 (L) 10/08/2017 CA 7.4 (L) 10/07/2017 CA 6.1 (L) 04/02/2012 Lab Results Component Value Date PHOS 5.8 (H) 10/09/2017 PHOS 5.7 (H) 10/08/2017 PHOS 3.7 07/25/2017 Lab Results Component Value Date MG 2.5 (H) 10/09/2017 MG 2.5 (H) 10/08/2017 MG 2.4 07/24/2017 Lab Results Component Value Date PTHINTACT 255 (H) 04/02/2012 Lab Results Component Value Date URICACID 8.2 04/02/2012 Lab Results Component Value Date WBC 5.17 10/09/2017 WBC 7.49 10/08/2017 WBC 8.72 10/07/2017 Lab Results Component Value Date APTT 33 (H) 10/07/2017 Nm Myocardial Perfusion Spect (stress And Rest) 10/09/2016 showed no evidence of ischemia. Echo 10/09/2016 showed EF between 60 - 65 %. Assessment and Recommendations: 1. ESRD on HD 2. MRSA bacteremia, possisvbly from pyomyositis/cellutis 3. Superior vena cava stenosis/SVC syndrome 4. Increased non-gap metabolic acidosis 5. Anemia of chronic renal failure He has recurrent MRSA bacteremia (? Abscess in close proximity to AVF) but also has signifi cant central venous stenosis. Concern also is with infected biceps possibly pyomyositis. Asp iration done 10/07/[address] Garnica is not showing any growth so far. Gram stain was -. He has MRSA on blood culture from Saturday10/03/17. It is unsafe to use AV fistula given concern with such infectious etiologies. Temporary dialysis catheter has been replaced and angioplasty for central stenosis has been done by Dr. Garnica with plan for full anticoagulation with heparin infusion/warfarin. BP is Ok. He is clinically euvolemic. Anemia is mild. Plan of care discussed with ., Plan to dialyze tomorrow again Full anticoagulation with heparin infusion/warfarin. Check blood cultures today. Place tunneled CVC once bacteremia has resolved. [employer] evaluation for low K diet. Continue vancomycin for now post HD given finding of staph bacteremia on blood culture f rom last week. I discussed with him the concept of hyperkalemia and interaction of BP/volume status/medica tions in maintaining electrolyte balance. 2 gm Na, 1 gm K, 1 gm PO4, 1 gm/kg protein diet. Please dose all medications for an eGFR of less than 15 ml/min/1.73 m2. No NSAIDS/ADAM 2 inhibitors, Aluminum/magnesium containing antacids, magnesium/phosphate con taining enemas. Fluid restriction 1.5 L in 24 hour period. Strict I/O Plan of care was discussed with Dr. Garnica/Dr. Rangel/Dr. Tiwari. COSMO SORIA MD 10/09/2017 Portions of my previous notes have been carried over for continuity of care. He was seen earlier in the day and charting was completed later after rounds. Dictation software, [employer], was used which may contain error for similar sounding words. Pe rsonal communication is requested for any clarification. Prognosis guarded in view of multiple comorbid illnesses and ESRD allopurinol 100 mg Oral Daily amLODIPine 10 mg Oral Daily budesonide-formoterol 2 puff Inhalation 2 times daily carvedilol 6.25 mg Oral BID WC heparin (porcine) 5000 unit/0.5mL 10,000 Units Intravenous Once heparin (porcine) 5000 unit/0.5mL 5,000 Units Subcutaneous 3 times per day heparin (porcine) 5000 unit/mL 10,000 Units Intracatheter Once levothyroxine 75 mcg Oral QAM AC lidocaine 10 mL Intradermal Once mupirocin 1 g Nasal BID naloxone 0.4 mg Intravenous Once oxyCODONE-acetaminophen 1 tablet Oral Once sevelamer 800 mg Oral TID WC sodium bicarbonate buffer 5 mL Infiltration Once sodium bicarbonate 1,300 mg Oral BID sodium chloride 10 mL Intravenous Q8H sodium chloride 10 mL Intravenous Q8H vancomycin (VANCOCIN) IVPB < 1 G 750 mg Intravenous Once vancomycin 750 mg Intravenous See Admin Instructions vancomycin 750 mg Intravenous Once onversion Transactio n, Provider Unknown - 10/09/2017 2:16 PM PDT Pharmacy Note by Yasmin Jordan RPH at 10/09/17 141 Author: Yasmin Jordan RPH Service: Pharmacy Author Type: Pharmacist Filed: 10/09/171415 Date of Service: 10/09/171415 Status: Signed Muffler Tender: Yasmin Jordan RPH (Pharmacist) Vanco 750mg IVPB sent for admin after HD today Pharmacist; AYSMIN JORDAN 10/09/2017 2:16 PM onver quique Transaction, Provider Unknown - 10/09/2017 1:11 PM PDT Case Management by Kalpana Triana RN at 10/09/17 1311 Author: Kalpana Triana RN Service: (none) Author Type: Registered Nurse Filed: 10/09/17 1314 Date of Service: 10/09/17 1311 Status: Signed Muffler Tender: Kalpana Triana RN (Registered Nurse) CM received call from patient's Newspaper Peddler from [facility] ([phone]). She st ated that she is available to help with any discharge needs. KALPANA TRIANA RN Case Management [phone] alvor son, Douglas Woodard MD - 10/09/2017 7:24 AM PDT Progress Notes by DAMIÁN KuR3 at 10/09/17 0724 Author: DAMIÁN KuR3 Service: Hospitalist Author Type: Resident-Y2 Filed: 10/09/17 1652 Date of Service: 10/09/17723 Status: Attested Muffler Tender: DAMIÁN [id number] (Resident-Y3) Cosigner: Khanh Rangel MD at 10/10/17 1503 Attestation signed by Khanh Rangel MD at 10/10/17 1503 Encountered and examined patient in room 423 with caring at bedside. [facility]. I agree with Dr. Barrow's progress note in its assessment and plan. Right upper extremity is tense edematous, and increased edema. Discussion has been made wit h Dr. garnica personally and plan for surgical intervention of normal lysis of the innominate v eins in the near future. Left IJ hemodialysis catheter. Left antecubital IV. Chronic scaling of bilateral lower extremities. Chronic kidney disease: Discussed in person with Dr. Soria briefly today. He will plan for dialysis. Right upper extremity cellulitis; resolved. Continue IV treatment for bacteremia. Continue with cefepime day #3. Status post vancomycin and ceftazidime day 1. Dr. Crespo following. PROGRESS NOTE Pt: Carol Potter AGE/SEX: 52 y.o. male ROOM: 423/423-1 PCP: ANDRY LOFTON : 1965 PATIENT SUMMARY This is a 52-year-old male with an extensive and complex past medical history including end -stage renal disease secondary to diabetic nephropathy, diabetes mellitus type II, anemia of chronic renal failure, SVC stenosis, and hypertension who presents to the hospital with rig ht upper extremity pain and swelling. He was recently admitted to [facility] the end of July 13 for presumed abscess distal to the AV fistula. He returns again with worsening pain and e ajy of the right upper extremity. Due to this he has missed dialysis for a week. He did hav e blood cultures drawn at his dialysis center which then grew gram-positive cocci. SUBJECTIVE Patient was in bed and examined with the hospitalist team this morning. He said he was in p ain, however Otherwise comfortable. OBJECTIVE Temp: [97.6 F (36.4 C)-98.3 F (36.8 C)] 97.6 F (36.4 C) (10/09 1420) BP: (106-149)/(55-79) 107/58 (10/09 1545) Heart Rate: [70-82] 76 (10/09 1545) Resp: [15-20] 18 (10/09 1420) SpO2: [96 %-100 %] 98 % (10/09 1545) Weight: [87.4 kg (192 lb 10.9 oz)-88 kg (194 lb 0.1 oz)] 88 kg (194 lb 0.1 oz) (10/09 1500 ) Physical Exam Constitutional: He is oriented to person, place, and time. Patient is lying in bed and appears comfortable, his right arm is supported on a pillow HENT: Head: Normocephalic and atraumatic. Right Ear: External ear normal. Left Ear: External ear normal. Mouth/Throat: No oropharyngeal exudate. He has some dry crusting under his right eye, some right facial edema Eyes: Conjunctivae are normal. No scleral icterus. Neck: Neck is short and obese, no noted stridor Cardiovascular: Normal rate, regular rhythm and normal heart sounds. Left IJ dialysis catheter present in left neck, with bandage coming undone Pulmonary/Chest: Effort normal and breath sounds normal. Abdomina/Gl: Abdomen is soft and nontender to palpation, no masses or organomegaly were felt Musculoskeletal: Patient has edema of his right upper extremity that has involved his AV fistula, stable fro m prior exam. AV fistula is palpable with thrill present. There is also an area of slight in duration just distal to the fistula that is also tender to palpation. There are bandages ove r this area very clean dry and intact. Neurological: He is alert and oriented to person, place, and time. Skin: Patient skin somewhat dry, he has non-erythematous papules with some evidence of excoriatio n over his upper extremities and chest Recent Results (from the past 24 hour(s)) POCT glucose Collection Time: 10/08/17 9:50 PM Result Value Ref Range GLUCOSE,POC SCREEN 157 (H) 65 - 99 mg/dL Comprehensive metabolic panel Collection Time: 10/09/17 5:15 AM Result Value Ref Range SODIUM 133 (L) 135 - 145 mmol/L POTASSIUM 4.5 3.5 - 4.9 mmol/L CHLORIDE 95 (L) 99 - 109 mmol/L CO2 25 23 - 32 mmol/L ANION GAP AGAP 18 5 - 20 mmol/L GLUCOSE 79 65 - 99 mg/dL BUN 59 (H) 8 - 25 mg/dL CREATININE 10.3 (H) 0.70 - 1.30 mg/dL BUN/CREAT 6 CALCIUM 8.2 (L) 8.5 - 10.5 mg/dL TOTAL PROTEIN 7.2 6.3 - 8.2 g/dL Albumin 3.1 (L) 3.6 - 5.0 g/dL GLOBULIN 4.1 1.3 - 4.9 g/dL A/G 0.8 (L) 1.0 - 2.4 TBIL 0.8 0.1 - 1.5 mg/dL ALK PHOS 79 35 - 115 U/L AST 24 10 - 45 U/L ALT 17 10 - 65 U/L EGFR 6 (L) >60 mL/min/1.73m2 CBC W/Auto Diff (Reflex to Manual) Collection Time: 10/09/17 5:15 AM Result Value Ref Range WBC 5.17 3.80 - 11.00 K/uL RBC 3.60 (L) 4.20 - 5.70 M/uL HGB 10.6 (L) 13.2 - 17.0 g/dL HCT 31.1 (L) 39.0 - 50.0 % MCV 86.4 80.0 - 100.0 fl MCH 29.5 27.0 - 34.0 pg MCHC 34.1 32.0 - 35.5 g/dL RDW SD 54.3 (H) 37 - 53 fl PLT 266 150 - 400 K/uL MPV 7.0 fl DIFF TYPE AUTOMATED NEUTROPHILS 61.30 % LYMPHOCYTES 8.56 % MONOCYTES 11.31 % EOSINOPHILS 18.37 % BASOPHILS 0.46 % NEUTROPHILS ABS 3.17 1.90 - 7.40 K/uL LYMPHOCYTES ABS 0.44 (L) 1.00 - 3.90 K/uL MONOCYTES ABS 0.59 0.00 - 0.80 K/uL EOSINOPHILS ABS 0.95 (H) 0.00 - 0.50 K/uL BASOPHILS ABS 0.02 0.00 - 0.10 K/uL Magnesium Collection Time: 10/09/17 5:15 AM Result Value Ref Range MAGNESIUM 2.5 (H) 1.7 - 2.4 mg/dL Phosphorus Collection Time: 10/09/17 5:15 AM Result Value Ref Range PHOSPHORUS 5.8 (H) 2.3 - 4.8 mg/dL POCT glucose Collection Time: 10/09/17 5:41 AM Result Value Ref Range GLUCOSE,POC SCREEN 88 65 - 99 mg/dL POCT glucose Collection Time: 10/09/17 11:03 AM Result Value Ref Range GLUCOSE,POC SCREEN 162 (H) 65 - 99 mg/dL MEDICATIONS allopurinol 100 mg Oral Daily amLODIPine 10 mg Oral Daily budesonide-formoterol 2 puff Inhalation 2 times daily carvedilol 6.25 mg Oral BID WC heparin (porcine) 5000 unit/0.5mL 10,000 Units Intravenous Once heparin (porcine) 5000 unit/0.5mL 5,000 Units Subcutaneous 3 times per day heparin (porcine) 5000 unit/mL 10,000 Units Intracatheter Once levothyroxine 75 mcg Oral QAM AC lidocaine 10 mL Intradermal Once mupirocin 1 g Nasal BID naloxone 0.4 mg Intravenous Once sevelamer 800 mg Oral TID WC sodium bicarbonate buffer 5 mL Infiltration Once sodium bicarbonate 1,300 mg Oral BID sodium chloride 10 mL Intravenous Q8H sodium chloride 10 mL Intravenous Q8H vancomycin (VANCOCIN) IVPB < 1 G 750 mg Intravenous Once vancomycin 750 mg Intravenous See Admin Instructions vancomycin 750 mg Intravenous Once PRN: acetaminophen OR acetaminophen, albumin human, albuterol, dextrose, dextrose, fentaNYL, heparin (porcine), heparin flush (PF), HYDROcodone-acetaminophen, midazolam, morphine, onda nsetron OR ondansetron, polyethylene glycol, zolpidem ASSESSMENT & PLAN 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 This is been aspirated and culture s are pending. He is known to grow Staphylococcus aureus bacteremia from prior blood culture s. We are attempting to obtain the culture report from outside facility. There is a clinical concern for pyomyositis. ID is currently on board *Addendum, I have not heard back from to be a [place] [facility] regarding the c christian - Infectious disease is on board, appreciate recommendations - Continue Vancomycin and Cefepime - AM CBC - F/U Culture reports ESRD w/Metabolic Acidosis: Patient has end-stage renal disease and receives dialysis Saturday s, Wednesdays, and Fridays. However, given the infection distal to the AV fistula, he has no t received dialysis over week. Patient is receiving dialysis today. - Appreciate nephrology's management - AM CMP w/Mg, Phos - Dialysis per nephrology Thrombosis of subclavian stent: Patient had a stent placed in his subclavian vein in September 2016 by interventional radiology. This appears to have stenosis. Unfortunately, patient had stenosis of his left brachiocephalic vein after placement of his temporary dialysis catheter , thus underwent angioplasty today. Interventional radiology will attempt to open the stenos is of the right side after bacteremia has cleared. 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 His l ast A1c was 5.5. Patient does not take any antidiabetic medications at home. - Diabetic diet - Continue to monitor POC T glucose HTN: Improving with dialysis, continue to monitor. Continue home medications. Gout: Continue allopurinol Hypothyroidism: Continue levothyroxine Anemia of chronic renal insufficiency: Stable continue monitor Dietary: Dietary has been consult and will provide education for appropriate renal diet. Problem list: Principal Problem: 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HCC) Active Problems: Metabolic acidosis Hypoalbuminemia Diabetes mellitus with ESRD (end-stage renal disease) HTN (hypertension) ESRD (end stage renal disease) on dialysis Anemia of chronic kidney failure Gout Staphylococcus aureus bacteremia Chest pain, unspecified Superior vena caval stenosis SVC syndrome Active comorbid conditions include: - essential hypertension, with renal disease (with CKD stage 5 or ESRD) - renal disease, CKD (ESRD) - nutritional anemia - COPD - mild intermittent asthma - diabetes (type 2 controlled (Hgb A1C < 6.5) with complications,) - PUD, past history of gastric ulcer - hypothyroidism Length of stay: 2 days Code status: Full Disposition: Inpatient Douglas Barrow MD-R2 10/09/2017 4:52 PM onversion Tr ansrehan, Provider Unknown - 10/09/2017 6:30 AM PDTFormatting of this note might be differ ent from the original. Nurse Progress Note by Steve Haile RN at 10/09/17629 Author: Steve Haile RN Service: (none) Author Type: Registered Nurse Filed: 10/09/17632 Date of Service: 10/09/17629 Status: Signed Muffler Tender: Steve Haile RN (Registered Nurse) Patient BG is 88 this am. VO to give D50 per Dr. Wheeler but to give slow as patient has poor venous access. Patient only has 24g in wrist/forearm area. Also given 1xorder for morphine PRN as no IV pain medications ordered and patient NPO. Evangelina Haile RN 10/09/17 6:33 AM Eilseo Mittal PA-C - 10/08/2017 10:16 PM PDT Progress Notes by Eliseo Cat PA-C at 10/08/172215 Author: Eliseo Cat PA-C Service: Interventional Radiology Author Type: Physician Vance ssistant - Certified Filed: 10/08/172229 Date of Service: 10/08/172215 Status: Signed Muffler Tender: Eliseo Cat PA-C (Physician Strategic Marketing Specialist - Certified) Interventional Radiology Progress Note Patient Name: Carol Potter Date of : 1965 Consulting Provider: Eliseo Cat PA-C Interval History/Subjective: Carol Potter is a 52 y.o. male. Patient reports that he is feeling better today. He is POD 1 from temporary CVC placement a nd US guided aspiration of right biceps fluid collection. Cultures are not finalized yet. He denies any CP, SOB, headache. Dr. Garnica received a phone call stating that temporary hemodialysis catheter was not functio jennifer. No overnight events. Labs: 3 Day Labs: Recent Labs Lab 10/08/17 0545 10/07/17 0339 10/05/17 1402 WBC 7.49 8.72 7.23 HGB 11.9* 11.2* 11.1* HCT 35.8* 33.9* 34.5* PLT 247 283 245 NA 133* 130* 133* K 4.7 5.7* 4.8 CL 96* 100 97* CO2 24 14* 19* BUN 46* 81* 71* CREATININE 9.5* 15* 15* PHOS 5.7* -- -- MG 2.5* -- -- PROT 7.3 7.2 7.2 BILITOT 0.9 0.6 0.7 INR -- 1.0 1.0 TSH 14.800* -- -- HGBA1C 5.9 -- -- Pertinent Imaging/Procedures: Cta Upper Extremity Right With Iv Contrast Result Date: 10/07/2017 EXAM: RIGHT UPPER EXTREMITY CT ANGIOGRAM WITH CONTRAST EXAM DATE: 10/07/2017 04:03 AM. [facility] HISTORY: Right upper arm fistula, infection. COMPARISON: 10/05/2017. TECHNIQUE: Thin-sec tion axial images were acquired of the upper extremity in the arterial phase after administr ation of intravenous contrast. IV contrast: Iodinated. Post-processing: Multiplanar MPR and 3D MIP reformats. Other: None. In accordance with CT protocol optimization, one or more of t he following dose reduction techniques were utilized for this exam: automated exposure contr ol, adjustment of mA and/or KV based on patient size, or use of iterative reconstructive trent hnique. FINDINGS: Vascular Structures: Patient has a SVC and subclavian venous stent which a ppears thrombosed and collapsed. Remaining vascular structures appear widely patent, includi ng an ectatic brachial to cephalic vein fistula. The graft measures up to 29 x 20 mm in cros s section. No arterial high-grade stenosis seen. Other: Severe subcutaneous edema in the rig ht upper extremity and right chest wall. There is a fluid collection at the anterior aspect of the distal biceps muscle, measuring approximately 4 x 1 x 5 cm, axial image 330 series 6 and sagittal image 105. Collection is directly posterior and medial to the bypass graft. No other discrete fluid collection seen. No tracking soft tissue gas seen. Reactive adenopathy. 1. 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 2. Extensive right upper extrem ity and chest wall subcutaneous edema could be a combination of infection and related to dawson ous obstruction. 3. Approximately 4 x 1 x 5 m fluid collection at the anterior aspect of the distal biceps muscle. If there is clinical concern for abscess/pyomyositis, aspiration coul d be considered. 4. No other vascular thrombosis seen with patent ectatic bypass graft as se en previously. RAD[facility] Electronically signed by Favio Abbasi MD on Oct 07 2017 4:43AM Re vianca Provider Line: [phone] ID: [id number] X-ray Chest 1 View Result Date: 10/07/2017 This is a non-reportable procedure without a radiologist report and is used for image [facility] [place] only Mri Shoulder Right Without Contrast Result Date: 10/08/2017 HISTORY: 52-year-old male with joint pain. Renal failure. On dialysis with stenosis of the superior vena cava TECHNIQUE: MR of the right shoulder. No recent similar prior study. FINDI NGS: The configuration of the AC joint demonstrates are [the, endplate irregularities and so me signal changes without joint space widening or proven erosions. There is some anterior di stal productive changes arising from the acromion which could contribute to rotator cuff imp ingement Low qsnvpi-ik-vjsxr ratio renders is a low sensitivity examination. There is no avu lsive rotator cuff disease or retraction of myotendinous structures. Intrasubstance or nonhi gh-grade undersurface disease or be difficult to exclude especially about the distal anterio r supraspinatus insertion, no image 4 series 11 Low sensitivity evaluation the labrum but no proven labral defect about the superior labrum. Labral cyst There is pronounced edema and a nasarca and superficial tissues with ectatic vessels noted, likely related to the patient's venous disease Some degenerative changes of the glenohumeral articulation with some marginal productive changes about the right humerus but there is no unexplained skeletal edema. No f racture.. 1. Low sensitivity examination but there is no evidence of high-grade rotator cuff disease 2. Significant edema and vascular varicosities in the superficial tissues, but there is no j oint effusion. No abscess suggested, no organized fluid collection 3. No marrow signal cuadra es to suggest osteomyelitis although there are degenerative changes noted Electronically sig sven by Giovany Espitia MD on 10/08/2017 8:08 PM Us Upper Extremity Venous Right Result Date: 10/05/2017 CAROL Jonny POTTER 1965 US UPPER EXTREMITY VENOUS DOPPLER RIGHT 10/05/2017 2:52 PM INDICATION: Arm pain COMPARISON: None TECHNIQUE: Right upper extremity venous duplex, grayscale, color- flow and spectral analysis FINDINGS: The internal jugular vein is patent. There is normal co serg flow of the internal jugular and subclavian veins. Normal augmentation is present along the proximal deep venous system. The cephalic vein is normally compressible. Mid basilic vei n is normal. Examination is limited due to patient soft tissue hardness. 1. No evidence of DVT. Ir Puncture Aspiration Result Date: 10/07/2017 IR PUNCTURE ASPIRATION dated 10/07/2017 12:47 PM CLINICAL DATA: History of right arm brachio cephalic fistula with recent MRSA bacteremia, right arm swelling and cellulitis with fluid c ollection seen adjacent to the fistula on CT of the right arm. Concern for abscess. COMPARIS ON STUDIES: CT arm 10/07/2017 PRIMARY FRONT COUNTER CLERK: Jimenez Garnica MD, PhD, RPVI OPERATIONS: 1. Right arm ultrasound and fluoroscopic guided soft tissue fluid aspiration. PROCEDURE: 2 ph ysician consent was obtained with myself and Dr. Colbert. Continuous cardiac monitoring was p erformed throughout the procedure. No sedation was used. Please see temporary dialysis karl ter of the same date for radiation dose. Following placement of a temporary dialysis cathete r, the right upper cavity was sterilely prepped and draped in usual fashion. Skin was locall y anesthetized with 1% lidocaine. Ultrasound images were obtained with grayscale and color d ocumenting the patent fistula and adjacent fluid collection without any color flow. A Yueh c entesis needle was advanced under ultrasound with difficult visualization secondary to the s evere soft tissue swelling. Subsequently a micropuncture needle was used and advanced into t he fluid collection followed by a wire confirmed fluoroscopically. The needle was exchanged to the micropuncture sheath which was then used to aspirate approximately 25 cc of dark loree k fluid which was sent for culture. FINDINGS: Ultrasound demonstrates a relatively anechoic soft tissue fluid collection adjacent to the right upper extremity fistula which has no colo r flow. Upon aspiration, it appears that this represents an old hematoma. Successful right upper extremity ultrasound-guided aspiration, cultures pending. Likely rep resenting old hematoma. Ir Central Venous Catheter Insertion Result Date: 10/07/2017 IR CENTRAL VENOUS CATHETER INSERTION dated 10/07/2017 10:30 AM IR CENTRAL VENOUS CATHETER IN SERTION dated 10/07/2017 10:30 AM PROCEDURES: 1. Ultrasound-guided access of the left digital marketing intern al jugular vein. 2. Ultrasound and fluoroscopically guided placement of a left IJ non-tunne led hemodialysis catheter CLINICAL DATA: History of right arm cellulitis with right upper e xtremity AV access compromised. Prior right innominate/subclavian venous occlusion with reoc clusion on CT upper extremity comparison. Need for hemodialysis access. COMPARISON STUDIES: CT right upper extremity 10/07/2017 and others CONSENT: Patient was hypersomnolent and recent ly given morphine and could not consent for himself. The risks, alternatives and benefits of the procedure were discussed with the patient's hospitalist Dr. Uriostegui. 2 physician signed and verbal consent was given as witnessed by nursing staff. SEDATION: None CONTRAST: None F LUOROSCOPY TIME: 1.5 minutes and 25 mGy air kerma PROCEDURE: The left neck and chest were p repped and draped in usual sterile fashion. The skin and deep subcutaneous soft tissues ove rlying the right internal jugular vein were anesthetized with 1% lidocaine. A small skin ni ck was made with a #11 blade. Under real-time ultrasound guidance, using micropuncture techn ique, the left internal jugular vein was accessed and a microwire advanced. Over the microw rowdy a 5-Afghan micro- sheath was placed. A single ultrasound image was obtained documenting the access and this was placed in the medical record. Through the micro-sheath, an 0.035 Ro sen wire was advanced under fluoroscopic guidance but would not pass into the superior vena cava and repeatedly directed into the right innominate stent. Therefore, an angled glide cat heter and wire were used to navigate into the superior vena cava and subsequently the wire w as placed into the inferior vena cava. The tract was serially dilated to 12.-Afghan. A 20-c m Mahurkar 12-Afghan temporary hemodialysis catheter was placed. The wire was removed. The catheter tip was parked at the cavoatrial junction. The catheter was flushed to ensure prop er function. The base of the catheter was affixed to the skin using two 3-0 Ethilon anchori ng sutures. Sterile dressings were applied. Nursing staff then flushed each lumen of the ca theter with heparin following department protocol. COMPLICATIONS: None immediate. EBL: None. FINDINGS: Existing right subclavian and right innominate stents are noted. Patent left inte rnal jugular vein. A single fluoroscopic image was obtained documenting the catheter tip pos itioned in the cavoatrial junction. Successful placement of a left IJ non-tunneled hemodialysis catheter. PLAN: Once infection clears, consider recanalization of the subclavian/innominate stents versus placement of a tu nneled dialysis catheter. Note: Please see separate dictation for aspiration of right arm fl uid collection performed same time. 12: 45 PM Ir Guidance Vascular Access Us Result Date: 10/07/2017 This Point of Care (POC) ultrasound image has been reviewed and interpreted by the kuldeep romo identified as the performing physician in the associated interpretation and report. Ir Us Guidance Imaging Result Date: 10/07/2017 This Point of Care (POC) ultrasound image has been reviewed and interpreted by the physicsasha n identified as the performing physician in the associated interpretation and report. Physical Examination: Vitals: 10/08/17 1932 BP: 119/59 Pulse: 82 Resp: 16 Temp: 98.1 F (36.7 C) SpO2: 100% Physical Exam Constitutional: He is oriented to person, place, and time. No distress. HENT: Head: Normocephalic and atraumatic. Eyes: Right eye exhibits no discharge. Left eye exhibits no discharge. No scleral icterus. Neck: Normal range of motion. Neck supple. No JVD present. No tracheal deviation present. T hyromegaly present. Cardiovascular: Normal rate and regular rhythm. Exam reveals no gallop and no friction rub . No murmur heard. Pulmonary/Chest: Effort normal. He has no wheezes. He has no rales. Abdominal: Soft. Musculoskeletal: He exhibits edema. LIJV temporary hemodialysis catheter present with intact dressing, C/D/I Right upper extremity fistula with no overlying erythema noted Neurological: He is alert and oriented to person, place, and time. Skin: Skin is warm and dry. He is not diaphoretic. No erythema. Psychiatric: Mood and affect normal. Assessment and Plan: 52 y/o male with hx of ESRD on hemodialysis s/p US guided aspiration of RUE biceps fluid co llection and placement of temporary hemodialysis cathetere, POD 1. 1. Temporary central line: I tried to flush and aspirate from both lumen, of which the red lumen showed great function but the blue lumen would not aspirate quickly. Multiple attempts were made with the patient in different positions, all were unsuccessful. Catheter was lock ed with heparin and is not fit for hemodialysis. Given that cultures are still pending, will need to exchange temporary HD catheter tomorrow morning. Keep patient NPO past midnight. Dr Renato Garnica would still like to perform fistulagram prior to patient d/c home. 2. Bicep fluid collection: Cultures still pending. Continue antibiotics per Hospitalist. IR will plan on catheter exchange tomorrow morning at 0730. Eliseo Cat PA-C Interventional Radiology Jose Luis Ahuja MD - 10/08/2017 2:51 PM PDT Progress Notes by Dwain Lima MD at 10/08/17 2170 Author: Dwain Lima MD Service: Infectious Disease Author Type: Physician Filed: 10/09/17 0270 Date of Service: 10/08/17 9752 Status: Signed Muffler Tender: Dwain Lima MD (Physician) [facility] Service: Infectious Diseases Progress Note Hospital Day: LOS: 1 day Post-Op Day: * No surgery found * CC: Follow-up on right upper extremity cellulitis SUBJECTIVE/OVERNIGHT EVENTS Patient hemodynamically stable. He had dialysis yesterday. No episodes of hypotension. Received a verbal report from nephrology regarding positive blood cultures for MRSA. This were apparently done at dialysis Center. The patient continues to complain of severe right upper extremity pain. Range of motion of the right shoulder is limited. Range of motion of the elbow is limited. The patient has tolerated treatment with vancomycin and cefepime after dialysis. REVIEW OF SYSTEMS GI: denies diarrhea, Constitutional: denies fever and chills and Integumentary: denies skin rash MEDICATIONS: allopurinol 100 mg Oral Daily amLODIPine 10 mg Oral Daily budesonide-formoterol 2 puff Inhalation 2 times daily carvedilol 6.25 mg Oral BID WC cefepime 1 g Intravenous Q24H heparin (porcine) 5000 unit/0.5mL 10,000 Units Intravenous Once heparin (porcine) 5000 unit/0.5mL 5,000 Units Subcutaneous 3 times per day heparin (porcine) 5000 unit/mL 10,000 Units Intracatheter Once levothyroxine 75 mcg Oral QAM AC naloxone 0.4 mg Intravenous Once sevelamer 800 mg Oral TID WC sodium bicarbonate 1,300 mg Oral BID sodium chloride 10 mL Intravenous Q8H vancomycin 750 mg Intravenous See Admin Instructions vancomycin 750 mg Intravenous Once PRN Medications acetaminophen OR acetaminophen, albumin human, albuterol, dextrose, dextrose, heparin f lush (PF), HYDROcodone-acetaminophen, ondansetron OR ondansetron, polyethylene glycol, z olpidem PHYSICAL EXAM Vital Signs: BP 115/58 | Pulse 76 | Temp 98.4 F (36.9 C) | Resp 20 | Ht 1.702 m (5' 7.01") | Wt 84.2 kg (185 lb 10 oz) | SpO2 98% | BMI 29.07 kg/m Temp (24hrs), Av.2 F (36.8 C), Min:97.8 F (36.6 C), Max:98.6 F (37 C) General Appearance: Alert, cooperative, no distress and obese Head: Normocephalic, without obvious abnormality, atraumatic. Lips, mucosa, and tongue normal; dentition normal; no thrush present. Eyes: PERRL, conjunctiva/corneas clear, EOM's intact. Throat: Oropharynx clear without exudates Neck: Supple, symmetrical, trachea midline, no adenopathy; thyroid: no enlargement/tenderness/nodules; no carotid bruit or JVD Back: Symmetric, no curvature, ROM normal, no CVA tenderness Lungs: Clear to auscultation bilaterally, respirations unlabored Chest Wall: No tenderness or deformity Heart: Regular rate and rhythm, S1 and S2 normal, no murmur noted, rub or gallop. Abdomen: Soft, non-tender, bowel sounds active all four quadrants, no masses, no organomegaly Extremities: right upper extremity massive edema, tense edema, especially around the AV fistula. There is severe pain to palpation, and inflammatory signs including erythema and in creased temperature on the way up to the shoulder area. Pulses: 2+ and symmetric all extremities Skin: Skin color, texture, turgor normal, no rashes or lesions Lymph nodes: Cervical, supraclavicular, inguinal and axillary nodes normal Neurologic: : normal without focal findings, mental status, speech normal, alert and oriented x3, P ERLA and reflexes normal and symmetric Normal genitalia. No Newman catheter. Venous access: Dialysis catheter No signs of infection. LABS: All labs reviewed. CBC: Lab Results Component Value Date WBC 5.17 10/09/2017 RBC 3.60 (L) 10/09/2017 HGB 10.6 (L) 10/09/2017 HCT 31.1 (L) 10/09/2017 MCV 86.4 10/09/2017 MCH 29.5 10/09/2017 MCHC 34.1 10/09/2017 RDW 54.3 (H) 10/09/2017 PLT 266 10/09/2017 MPV 7.0 10/09/2017 DIFFTYPE AUTOMATED 10/09/2017 CMP: Lab Results Component Value Date NA 133 (L) 10/09/2017 K 4.5 10/09/2017 CL 95 (L) 10/09/2017 CO2 25 10/09/2017 ANIONGAP 18 10/09/2017 GLUF 79 10/09/2017 BUN 59 (H) 10/09/2017 CREATININE 10.3 (H) 10/09/2017 BCR 6 10/09/2017 CA 8.2 (L) 10/09/2017 CA 6.1 (L) 04/02/2012 PROT 7.2 10/09/2017 ALB 3.1 (L) 10/09/2017 GLOB 4.1 10/09/2017 BILITOT 0.8 10/09/2017 ALP 79 10/09/2017 AST 24 10/09/2017 ALT 17 10/09/2017 EGFR 6 (L) 10/09/2017 MICROBIOLOGY Results Procedure Component Value Units Date/Time Anaerobic Culture W/Gram Stain [[id number]] Collected: 10/07/17 1611 Specimen: Abscess Updated: 10/07/17 2232 Specimen Description ABSCESS GRAM STAIN 1+ GRAM STAIN WBC'S SEEN GRAM STAIN NO ORGANISMS SEEN CULTURE PENDING MRSA by PCR [[id number]] (Abnormal) Collected: 10/07/17 0650 Specimen: Nasopharyngeal from Nares(Nose) Updated: 10/07/17 0818 SOURCE NARES(NOSE) MRSA PCR POSITIVE for MRSA by PCR (A) Blood Culture Set 1 [[id number]] Collected: 10/07/17 0421 Specimen: Blood from Blood Updated: 10/07/1756 Blood culture, set 2 [[id number]] Collected: 10/07/17 0447 Specimen: Blood from Blood, peripheral draw Updated: 10/07/17 0656 IMAGING Reviewed images of : No new images for review PROBLEM LIST Principal Problem: 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HCC) Active Problems: Metabolic acidosis Hypoalbuminemia Diabetes mellitus with ESRD (end-stage renal disease) HTN (hypertension) ESRD (end stage renal disease) on dialysis Anemia of chronic kidney failure Gout Staphylococcus aureus bacteremia Chest pain, unspecified Superior vena caval stenosis SVC syndrome ASSESSMENT & PLAN The patient is a 52 y.o.-year-old male with the following problems: 1. Severe right upper extremity skin and soft tissue infection Symptoms are persistent, with persistent swelling of the right upper extremity, induration, severe pain. Will continue treatment for another day and reevaluate. The patient may need additional imaging done depending on clinical response. 2. AV fistula infection 3. Possible septic thrombophlebitis 4. Fluid collection, cultures no growth so far, likely hematoma. 5. End-stage renal disease on dialysis 6. 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 New problem: MRSA bacteremia. Will obtain results from Dialysis [facility] , they repeat cultures here are no growth so far. The patient will continue on vancomycin tr eatment. Vancomycin random level was more than 50 on 10/07/17, continue dosing after dialysi s, pharmacy assisting with dosing. 8. New problem: Right shoulder pain, swelling, decreased range of motion. Obtain an MRI of the right shoulder today. Patient has prior history of bacteremia with septic joints in the past. Stop cefepime. Patient has new hemodialysis catheter placed. Maintain right upper extremity elevation. Maintain contact precautions for MRSA. Discussed with Dr. Soria, nephrology. Dwain Cervantes MD, MPH Infectious Diseases 10/08/2017 Cosmo Lang MD - 10/08/2017 1:56 PM PDTFormatting of this note might be different from the betina dasia. Progress Notes by Cosmo Soria MD at 10/08/17 3860 Author: Cosmo Soria MD Service: Nephrology Author Type: Physician Filed: 10/10/17 134 Date of Service: 10/08/17 1358 Status: Addendum Muffler Tender: Cosmo Soria MD (Physician) Related Notes: Original Note by Cosmo Soria MD (Physician) filed at 10/08/17 1402 423/423-1 LOS: 1 day Carol Potter is a 52 y.o. man whose PCP is Dr. ANDRY LOFTON. He is known to have ESRD as per PM. He is known to me from multiple previous admissions (l ast time 10/07/2016 when he was admitted with severe hyperkalemia (no EKG changes). He has had multiple emergency room visits and hospitalizations since then, most recently he was admitted from 07/22/17-07/25/17 with abscess just distal to the AV fistula and received va ncomycin during dialysis. No surgical intervention was needed. He returned to the emergency room on Saturday with swelling and pain in the arm. Percussion of the arm was negative for deep vein thrombosis. At that time he was seen by vascular surgery and treatment for recurrent infection was advi sed. Apparently he was unable to be dialyzed on Saturday and had apparently missed dialysis on Sat. On Saturday he had blood cultures drawn and given vancomycin 1.5 gm (this was a teleph onic discussion with Dr. Christianson today). Blood cultures were reported to be growing gram + kym ci yesterday when I was called by [facility]. Today Dr. Christianson indicated growth was Staph aur eus. He received vancomycin and ceftazidime on Saturday and was discharged. I personally discuss ed the case telephonically with Dr. Ellison and ED at that time. He was felt to have a working AV fistula and was felt that he would be able to return to [facility] for Saturday for dialysis. He was not clinically uremic, hyperkalemic, acido tic or uremic at that time. He however returned to emergency room at [facility] with worsening of the swell ing. He was transferred back to [facility] He was afebrile and otherwise hemodynamically stable without any tachycardia/hypotension/se fatemeh hypertension/hypoxia. He had no leukocytosis. Potassium was minimally raised at 5.7 but he did have increased ani on gap metabolic acidosis expected after missing dialysis. MRSA screen was positive. Cta Upper Extremity Right With Iv Contrast 10/07/2017 showed: 1. 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 2. Extensive right upper extremity and chest wall subcutaneous edema 3. Approximately 4 x 1 x 5 m fluid collection at the anterior aspect of the distal biceps m uscle. 4. No other vascular thrombosis seen with patent ectatic bypass graft as seen previously. He was admitted and nephrology consultation was requested by Dr. Mtz for end-stage kidn ey disease management including hyperkalemia/metabolic acidosis. Vascular surgery had been contacted and I had a personal discussion with Dr. Jose Alfredo Ellison regarding same. 10/08/17 He feels he has difficulty swallowing and feels swollen around his neck. Today he couldn't get dialysis with poor blood flow through dialysis catheter. Yesterday he received dialysis with 1 L UF. He also had aspiration of right arm with Dr. Garnica. There are no documented episodes of fever, chills, nausea, vomiting, diarrhea, shortness of breath, chest pain, cough. PMH, PSH, Social history, medications, allergies, labs and imaging reviewed as appropriate. Previous history summarized as above. Prior lab data and imaging reviewed. Old records and labs were reviewed and summarized as above. Significant medical/surgical history: ESRD secondary to Biopsy-proven Diabetic nephropathy. He is dialyzed Saturday an d Saturday at [place] dialysis unit using right UE AVF (Dr. Meyer). He used to have left upper extremity brachio cephalic fistula which clotted off 10/2013. Right upper extremity brachioc ephalic fistula by Dr. Meyer 02/04 DM2 Secondary hyperparathyroidism Anemia of chronic renal failure Endocarditis HFPEF with Echo 09/13/2016 showing EF between 55 - 60 %. SVC stenosis s/p successful recanalization with angioplasty and provisional stent placem ent of subacute axillary and chronic right brachiocephalic, subclavian venous occlusions as described. 09/26/2016 Hemopericardium treated with pericardial drain. 09/07/16-09/15/[address] a complicated [address] ay at [facility] including development of pericardial effusion s/p attempt at angioplasty for cent ral venous stenosis (done for poorly functioning right UE AVF). He had a pericardial drain p ut in which was removed prior to discharged. Family/social history: There is no family history of kidney disease with close family leier arzate being on dialysis at early age. He [...] was done and is negative. Examination: Constitutional: Sitting up in chair from swollen/painful right arm. No asterixis. Swollen h ead and neck. HEENT: Thick neck. No JVD, non icteric sclera. Cardiovascular: S1soft. No friction rub. No S3. No murmur. LUNGS: Effort fair. Scattered rales at bases. Abdominal: Soft. No distension and no mass. There is no rebound tenderness and no guarding. EXT: B/L LE with chronic venous changes. distal lower extremity pulses not palpable. Right arm held partially flexed with pain/swelling. Neurological: Drowsy but easily aroused. No asterixis. Normal sensorium. Speech fluent. Gai t not tested. Skin: Skin is warm and dry. Chronic skin thickening right AVF. Hemodialysis access: Left upper extremity brachiocephalic fistula, clotted Right UE brachiocephalic AVF with bruit but wit marked swelling/pain on movement. Blister noted on arm. Vital Signs: BP 115/58 | Pulse 76 | Temp 98.4 F (36.9 C) | Resp 20 | Ht 1.702 m (5' 7.01") | Wt 84.2 kg (185 lb 10 oz) | SpO2 98% | BMI 29.07 kg/m Data evaluation: Lab Results Component Value Date BUN 46 (H) 10/08/2017 CREATININE 9.5 (H) 10/08/2017 EGFR 6 (L) 10/08/2017 NA 133 (L) 10/08/2017 K 4.7 10/08/2017 CL 96 (L) 10/08/2017 CO2 24 10/08/2017 CA 8.3 (L) 10/08/2017 PHOS 5.7 (H) 10/08/2017 MG 2.5 (H) 10/08/2017 ALB 3.1 (L) 10/08/2017 HGB 11.9 (L) 10/08/2017 WBC 7.49 10/08/2017 Lab Results Component Value Date HGB 11.9 (L) 10/08/2017 HGB 11.2 (L) 10/07/2017 HGB 11.1 (L) 10/05/2017 FERRITIN 933 (H) 09/10/2012 FERRITIN 245.0 04/28/2012 FERRITIN 139 04/02/2012 LABIRON 35 09/10/2012 LABIRON 20 04/28/2012 LABIRON 38 04/02/2012 Lab Results Component Value Date K 4.7 10/08/2017 K 5.7 (H) 10/07/2017 K 4.8 10/05/2017 . Lab Results Component Value Date NA 133 (L) 10/08/2017 NA 130 (L) 10/07/2017 NA 133 (L) 10/05/2017 Lab Results Component Value Date CO2 24 10/08/2017 CO2 14 (LL) 10/07/2017 CO2 19 (L) 10/05/2017 Lab Results Component Value Date ANIONGAP 18 10/08/2017 Lab Results Component Value Date ALB 3.1 (L) 10/08/2017 ALB 2.8 (L) 10/07/2017 ALB 3.2 (L) 10/05/2017 Lab Results Component Value Date CA 8.3 (L) 10/08/2017 CA 7.4 (L) 10/07/2017 CA 7.5 (L) 10/05/2017 CA 6.1 (L) 04/02/2012 Lab Results Component Value Date PHOS 5.7 (H) 10/08/2017 PHOS 3.7 07/25/2017 PHOS 5.4 (H) 07/24/2017 Lab Results Component Value Date MG 2.5 (H) 10/08/2017 MG 2.4 07/24/2017 MG 3.1 (H) 07/23/2017 Lab Results Component Value Date PTHINTACT 255 (H) 04/02/2012 Lab Results Component Value Date URICACID 8.2 04/02/2012 Lab Results Component Value Date WBC 7.49 10/08/2017 WBC 8.72 10/07/2017 WBC 7.23 10/05/2017 Lab Results Component Value Date APTT 33 (H) 10/07/2017 Nm Myocardial Perfusion Spect (stress And Rest) 10/09/2016 showed no evidence of ischemia. Echo 10/09/2016 showed EF between 60 - 65 %. Assessment and Recommendations: 1. ESRD on HD 2. MRSA bacteremia, possisvbly from pyomyositis/cellutis 3. Superior vena cava stenosis/SVC syndrome 4. Increased non-gap metabolic acidosis 5. Anemia of chronic renal failure He has recurrent MRSA bacteremia (? Abscess in close proximity to AVF) but also has signifi cant central venous stenosis. Concern also is with infected biceps possibly pyomyositis. Asp iration done 10/07/[address] Garnica is not showing any growth so far. Gram stain was -. He has MRSA on blood culture from Saturday10/03/17. It is unsafe to use AV fistula given concern with such infectious etiologies. Temporary dialysis catheter is again mal-functional today with suspicion for SVC syndrome/s tenosis. He did get dialysis yesterday with resolution of hyperkalemia and improvement in acidosis. BP is Ok. He is clinically euvolemic. Anemia is mild. Plan of care discussed with ., Plan to keep NPO past Mn and check for SVC stenosis tomorrow with Dr. Garnica and subsequen t dialysis. [employer] evaluation for low K diet. Continue vancomycin for now post HD given finding of bacteremia on blood culture from . I discussed with him the concept of hyperkalemia and interaction of BP/volume status/medica tions in maintaining electrolyte balance. 2 gm Na, 1 gm K, 1 gm PO4, 1 gm/kg protein diet. Please dose all medications for an eGFR of less than 15 ml/min/1.73 m2. No NSAIDS/ADAM 2 inhibitors, Aluminum/magnesium containing antacids, magnesium/phosphate con taining enemas. Fluid restriction 1.5 L in 24 hour period. Strict I/O Plan of care was discussed with Dr. Garnica/Dr. Rangel/Dr. Tiwari. COSMO SORIA MD 10/08/2017 Portions of my previous notes have been carried over for continuity of care. He was seen earlier in the day and charting was completed later after rounds. Dictation software, [employer], was used which may contain error for similar sounding words. Pe rsonal communication is requested for any clarification. Prognosis guarded in view of multiple comorbid illnesses and ESRD allopurinol 100 mg Oral Daily amLODIPine 10 mg Oral Daily budesonide-formoterol 2 puff Inhalation 2 times daily carvedilol 6.25 mg Oral BID WC cefepime 1 g Intravenous Q24H heparin (porcine) 5000 unit/0.5mL 10,000 Units Intravenous Once heparin (porcine) 5000 unit/0.5mL 5,000 Units Subcutaneous 3 times per day levothyroxine 75 mcg Oral QAM AC naloxone 0.4 mg Intravenous Once sevelamer 800 mg Oral TID WC sodium bicarbonate 1,300 mg Oral BID sodium chloride 10 mL Intravenous Q8H vancomycin 750 mg Intravenous See Admin Instructions vancomycin 750 mg Intravenous Once ouglas Barrow MD - 10/08/2017 6:55 AM PDT Progress Notes by Douglas Barrow MD-R3 at 10/08/17 0688 Author: DAMIÁN [email or web address] Service: Hospitalist Author Type: Resident-Y2 Filed: 10/08/17 6996 Date of Service: 10/08/17654 Status: Attested Addendum Muffler Tender: Douglas Barrow MD-R3 (Resident-Y3) Related Notes: Original Note by Douglas Barrow MD-R3 (Resident-Y3) filed at 10/08/17 1 507 Cosigner: Khanh Rangel MD at 10/09/17 1313 Attestation signed by Khanh Rangel MD at 10/09/17 1313 Encountered and examined patient in room 423 with dialysis nurse at bedside. Patient is get ting dialysis. Rounding with Residency team. I agree with Dr. Barrow's progress note in i ts assessment and plan. Right upper extremity is tense edematous, but no erythema. Left IJ hemodialysis catheter. Left antecubital IV. Chronic scaling of bilateral lower extremities. Chronic kidney disease: Discussed in person with Dr. Soria briefly today. Right upper extremity cellulitis; Continue with cefepime day #1. Status post vancomycin and ceftazidime day 1. Dr. Crespo following. PROGRESS NOTE Pt: Carol Fuller Tariq AGE/SEX: 52 y.o. male ROOM: 423/[facility]-1 PCP: ANDRY LOFTON : 1965 PATIENT SUMMARY This is a 52-year-old male with an extensive and complex past medical history including end -stage renal disease secondary to diabetic nephropathy, diabetes mellitus type II, anemia of chronic renal failure, SVC stenosis, and hypertension who presents to the hospital with rig ht upper extremity pain and swelling. He was recently admitted to [facility] the end of July 13 for presumed abscess distal to the AV fistula. He returns again with worsening pain and e jay of the right upper extremity. Due to this he has missed dialysis for a week. He did hav e blood cultures drawn at his dialysis center which then grew gram-positive cocci. SUBJECTIVE In the room. He was lying in bed awake and interactive. He says his pain is significantly i mproved from prior. He otherwise has no complaints. OBJECTIVE Temp: [97.7 F (36.5 C)-98.8 F (37.1 C)] 98.4 F (36.9 C) (10/08 1330) BP: (75-153)/(38-77) 115/58 (10/08 1330) Heart Rate: [74-90] 76 (10/08 1329) Resp: [16-20] 20 (10/08 1329) SpO2: [95 %-100 %] 98 % (10/08 1329) Weight: [84.2 kg (185 lb 10 oz)] 84.2 kg (185 lb 10 oz) (10/07 1745) Physical Exam Constitutional: He is oriented to person, place, and time. Patient is lying in bed and appears very comfortable and relaxed. He is a very pleasant gen tleman and always seems to be happy. HENT: Head: Normocephalic and atraumatic. Right Ear: External ear normal. Left Ear: External ear normal. Mouth/Throat: No oropharyngeal exudate. He has some dry crusting under his right eye Eyes: Conjunctivae are normal. No scleral icterus. Neck: Neck is short and obese, no noted stridor Cardiovascular: Normal rate, regular rhythm and normal heart sounds. Left IJ dialysis catheter present in left neck Pulmonary/Chest: Effort normal and breath sounds normal. Abdomina/Gl: Abdomen is soft and nontender to palpation, no masses or organomegaly were felt Musculoskeletal: Patient has edema of his right upper extremity that has involved his AV fistula. AV fistula is palpable. There is also an area of slight induration just distal to the fistula that is also tender to palpation. There are bandages over this area very clean dry and intact. Neurological: He is alert and oriented to person, place, and time. Skin: Patient skin somewhat dry, he has non-erythematous papules with some evidence of excoriatio n over his upper extremities and chest Recent Results (from the past 24 hour(s)) Anaerobic Culture W/Gram Stain Collection Time: 10/07/17 4:11 PM Result Value Ref Range Specimen Description ABSCESS GRAM STAIN 1+ GRAM STAIN WBC'S SEEN GRAM STAIN NO ORGANISMS SEEN CULTURE PENDING POCT glucose Collection Time: 10/07/17 4:53 PM Result Value Ref Range GLUCOSE,POC SCREEN 61 (L) 65 - 99 mg/dL POCT glucose Collection Time: 10/07/17 5:46 PM Result Value Ref Range GLUCOSE,POC SCREEN 80 65 - 99 mg/dL POCT glucose Collection Time: 10/07/17 9:10 PM Result Value Ref Range GLUCOSE,POC SCREEN 108 (H) 65 - 99 mg/dL CBC W/Auto Diff (Reflex to Manual) Collection Time: 10/08/17 5:45 AM Result Value Ref Range WBC 7.49 3.80 - 11.00 K/uL RBC 4.09 (L) 4.20 - 5.70 M/uL HGB 11.9 (L) 13.2 - 17.0 g/dL HCT 35.8 (L) 39.0 - 50.0 % MCV 87.6 80.0 - 100.0 fl MCH 29.1 27.0 - 34.0 pg MCHC 33.2 32.0 - 35.5 g/dL RDW SD 53.4 (H) 37 - 53 fl PLT 247 150 - 400 K/uL MPV 7.7 fl DIFF TYPE AUTOMATED NEUTROPHILS 72.38 % LYMPHOCYTES 6.36 % MONOCYTES 9.28 % EOSINOPHILS 11.33 % BASOPHILS 0.65 % NEUTROPHILS ABS 5.42 1.90 - 7.40 K/uL LYMPHOCYTES ABS 0.48 (L) 1.00 - 3.90 K/uL MONOCYTES ABS 0.70 0.00 - 0.80 K/uL EOSINOPHILS ABS 0.85 (H) 0.00 - 0.50 K/uL BASOPHILS ABS 0.05 0.00 - 0.10 K/uL MORPHOLOGY RBC AND PLT MORPHOLOGY APPEAR NORMAL Magnesium Collection Time: 10/08/17 5:45 AM Result Value Ref Range MAGNESIUM 2.5 (H) 1.7 - 2.4 mg/dL Phosphorus Collection Time: 10/08/17 5:45 AM Result Value Ref Range PHOSPHORUS 5.7 (H) 2.3 - 4.8 mg/dL Comprehensive Metabolic Panel Collection Time: 10/08/17 5:45 AM Result Value Ref Range SODIUM 133 (L) 135 - 145 mmol/L POTASSIUM 4.7 3.5 - 4.9 mmol/L CHLORIDE 96 (L) 99 - 109 mmol/L CO2 24 23 - 32 mmol/L ANION GAP AGAP 18 5 - 20 mmol/L GLUCOSE 80 65 - 99 mg/dL BUN 46 (H) 8 - 25 mg/dL CREATININE 9.5 (H) 0.70 - 1.30 mg/dL BUN/CREAT 5 CALCIUM 8.3 (L) 8.5 - 10.5 mg/dL TOTAL PROTEIN 7.3 6.3 - 8.2 g/dL Albumin 3.1 (L) 3.6 - 5.0 g/dL GLOBULIN 4.2 1.3 - 4.9 g/dL A/G 0.7 (L) 1.0 - 2.4 TBIL 0.9 0.1 - 1.5 mg/dL ALK PHOS 84 35 - 115 U/L AST 27 10 - 45 U/L ALT 21 10 - 65 U/L EGFR 6 (L) >60 mL/min/1.73m2 TSH Collection Time: 10/08/17 5:45 AM Result Value Ref Range TSH 14.800 (H) 0.450 - 5.100 uIU/mL POCT glucose Collection Time: 10/08/17 5:46 AM Result Value Ref Range GLUCOSE,POC SCREEN 89 65 - 99 mg/dL Electrocardiogram, 12-lead Collection Time: 10/08/17 6:16 AM Result Value Ref Range Ventricular Rate 90 BPM Atrial Rate 90 BPM P-R Interval 186 ms QRS Duration 90 ms Q-T Interval 388 ms QTC Calculation (Bezet) 474 ms Calculated P [place] 49 degrees Calculated R [place] 28 degrees Calculated T [place] 80 degrees Diagnosis Normal sinus rhythm Low voltage QRS Nonspecific T wave abnormality Prolonged QT Abnormal ECG When compared with ECG of 07-OCT-2017 03:30, No significant change was found Confirmed by Marco Antonio Johnson MD ([id number]) on 10/08/2017 8:47:05 AM POCT glucose Collection Time: 10/08/17 11:27 AM Result Value Ref Range GLUCOSE,POC SCREEN 122 (H) 65 - 99 mg/dL MEDICATIONS allopurinol 100 mg Oral Daily amLODIPine 10 mg Oral Daily budesonide-formoterol 2 puff Inhalation 2 times daily carvedilol 6.25 mg Oral BID WC cefepime 1 g Intravenous Q24H heparin (porcine) 5000 unit/0.5mL 10,000 Units Intravenous Once heparin (porcine) 5000 unit/0.5mL 5,000 Units Subcutaneous 3 times per day levothyroxine 75 mcg Oral QAM AC naloxone 0.4 mg Intravenous Once sevelamer 800 mg Oral TID WC sodium bicarbonate 1,300 mg Oral BID sodium chloride 10 mL Intravenous Q8H vancomycin 750 mg Intravenous See Admin Instructions vancomycin 750 mg Intravenous Once PRN: acetaminophen OR acetaminophen, albumin human, albuterol, dextrose, dextrose, heparin f lush (PF), HYDROcodone-acetaminophen, ondansetron OR ondansetron, polyethylene glycol, z olpidem ASSESSMENT & PLAN AV fistula infection with Staphylococcus aureus bacteremia: Patient has a likely abscess ve rsus infection of or near his AV fistula. This is been aspirated and cultures are pending. Amado e is known to grow Staphylococcus aureus bacteremia from prior blood cultures. We are attemp ting to obtain the culture report from outside facility. There is a clinical concern for pyo myositis. It appears that he would be in stage I of the disease. Pyomyositis is known to pre sent with a normal CPK level. The best imaging for this would be an MRI, however given the p eyal's renal insufficiency he is not a candidate for this at the time. *Addendum, attempted to contact [facility] ([phone]) to obtain culture results, however was unable to talk to anybody. I did leave a voice message. - Infectious disease is on board, appreciate recommendations - Continue Vancomycin and Cefepime - AM CBC - F/U Culture reports ESRD w/Metabolic Acidosis: Patient has end-stage renal disease and receives dialysis Saturday s, Wednesdays, and Fridays. However, given the infection distal to the AV fistula, he has no t received dialysis over week. A temporary dialysis [facility] and the patient has received dialysis once and is currently receiving dial ysis. We will need to wait to access the fistula until bacteremia resolves. - Appreciate nephrology's management - AM CMP w/Mg, Phos - Dialysis per nephrology Thrombosis of subclavian stent: Patient had a stent placed in his subclavian vein in September 2016 by interventional radiology. This appears to have stenosis. Interventional radiology wi ll attempt to open the stenosis after bacteremia has cleared. DMII: Patient has a diagnosis of diabetes mellitus type II with diabetic nephropathy. His l ast A1c was 5.5. Patient does not take any antidiabetic medications at home. - Diabetic diet - Continue to monitor POC T glucose HTN: Improving with dialysis, continue to monitor. Continue home medications. Gout: Continue allopurinol Hypothyroidism: Continue levothyroxine Anemia of chronic renal insufficiency: Stable continue monitor Dietary: Dietary has been consult and will provide education for appropriate renal diet. Problem list: Principal Problem: 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HCC) Active Problems: Metabolic acidosis Hypoalbuminemia Diabetes mellitus with ESRD (end-stage renal disease) HTN (hypertension) ESRD (end stage renal disease) on dialysis Anemia of chronic kidney failure Gout Staphylococcus aureus bacteremia Chest pain, unspecified Superior vena caval stenosis SVC syndrome Active comorbid conditions include: - essential hypertension, with renal disease (with CKD stage 5 or ESRD) - renal disease, CKD (ESRD) - nutritional anemia - COPD - mild intermittent asthma - diabetes (type 2 controlled (Hgb A1C < 6.5) with complications,) - PUD, past history of gastric ulcer - hypothyroidism Length of stay: 1 days Code status: Full Disposition: Inpatient Douglas Barrow MD-R2 10/08/2017 2:17 PM onversion Transa ction, Provider Unknown - 10/07/2017 3:27 PM PDT Case Management by Mihir Yo RN at 10/07/17 1527 Author: Mihir Yo RN Service: (none) Author Type: Registered Nurse Filed: 10/07/17 1541 Date of Service: 10/07/17 1527 Status: Signed Muffler Tender: Mihir Yo RN (Registered Nurse) 10/07/17 1525 Discharge Planning Evaluation Admitting Diagnosis AV Fistula Abscess Readmission No Living Arrangements Spouse/significant other Support Systems Spouse/significant other Type of Residence Private residence House type House-1 story Steps to enter 2 Bathrooms on 1st Floor 1-Full Independent with ADL's Yes Independent with Mobility Other (comment) (uses brokerage transportation services in [place]) Home Care Services No Caregiver after Discharge No Mental Status Oriented Prior functional status modified independent Anticipated Discharge Plan Post Acute Care Needs (TBD) Resources Financial concerns No Transportation issues No Prescription Plan Yes Name of Pharmacy [facility], [facility] Aid after hours Anticipated Disposition Facility Type Home Medicare Important Message (ELEAZAR) Not applicable Met with pt and discussed discharge planning, Pt is a 52 y.o., male who lives with his wif e in their one level private residence. Pt attends dialysis [facility] in [place] and has been known to be noncompliant and to use his fistula for unprescribed drug administration. Pt u ses the Medicaid transportation brokerage for appointments. Patient's PCP is: Andry Lofton MD, [facility] Patient's insurance: Medicare, Medicaid Coverage concerns: no Medication coverage/concerns: no Rx Bedside Delivery: YES Community resources utilized / needed: Dialysis Assistance in transportation: [facility] Transportation Identification of any specific education / training: no Barriers to Discharge / Alternative housing needed: no Anticipated DCP: home Shyanne Potter, , Klaudia, [facility] Nurse at [facility], MIHIR YO onver quique Transaction, Provider Unknown - 10/07/2017 3:17 PM PDT Case Management by Mihir Yo RN at 10/07/17 1517 Author: Mihir Yo RN Service: (none) Author Type: Registered Nurse Filed: 10/07/17 1525 Date of Service: 10/07/17 1517 Status: Addendum Muffler Tender: Mihir Yo RN (Registered Nurse) Related Notes: Original Note by Mihir Yo RN (Registered Nurse) filed at 0 10/07/17 1518 Attempted to meet with pt for CM admission assessment but he was receiving dialysis and wou ld not rouse enough to answer questions. Will attempt at a later date. Dialysis will dionisio nue until 5:30pm. Will document pt's baseline for the assessment from recent prior admission in June. onver quique Transaction, Provider Unknown - 10/07/2017 1:00 PM PDT Progress Notes by Brooklynn Juan RN at 10/07/17 1300 Author: Brooklynn Juan RN Service: (none) Author Type: Registered Nurse Filed: 10/07/17 1330 Date of Service: 10/07/17 1300 Status: Signed Muffler Tender: Brooklynn Juan RN (Registered Nurse) Returned patient to surgical floor report given to bedside nurse, pt maintained his airway and vital signs during the procedure. Recommended blood sugar check pt remaining pretty asad nolent will arouse when name called and when stimulated. onver quqiue Transaction, Provider Unknown - 10/07/2017 10:40 AM PDT Progress Notes by Brooklynn Juan RN at 10/07/17 1040 Author: Brooklynn Juan RN Service: (none) Author Type: Registered Nurse Filed: 10/07/17 1232 Date of Service: 10/07/17 1040 Status: Signed Muffler Tender: Brooklynn Juan RN (Registered Nurse) Went to surgical floor to check on patient for procedure in IR. Pt needing a temporary ratna lysis catheter. Hospitalist team in room assessing pt. Pt obtunded aroused when stimulated but had sonorous breathing which improved with head position. Narcan was ordered and held per Hospitalist and Dr Garnica as we were planning to take pt to IR for placement of catheter a nd aspiration of right arm abscess. Will bring patient down to IR with close airway monitor ing and narcan available at the bedside. onver quique Transaction, Provider Unknown - 10/07/2017 10:17 AM PDT Pharmacy Note by Haider Bhatt RPH at 10/07/17 1017 Author: Haider Bhatt RPH Service: Pharmacy Author Type: Pharmacist Filed: 10/07/17 1017 Date of Service: 10/07/17 1017 Status: Signed Muffler Tender: Haider Bhatt RPH (Pharmacist) Renal Dosing Monitoring: Carol Potter 52 y.o. male Pharmacy dosing for renal function per Dr. Mtz Plan per protocol: Medication / Dose: HD patient. No dosage adjustments made at this time. Pharmacy will continue monitoring patient for appropriate dosing per renal function. 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 Since patient has not received dialysis for appro ximately one week per hospitalist notes, unlikely that a supplemental dose of Vancomycin emily l be needed until after next HD session. Will enter standard Vancomycin for HD orders. Vancomycin 750 mg IV to be administered during last hour or immediately following each HD s ession. Use Rx button to message pharmacy for dose. onver quique Castillo Provider Unknown - 10/07/2017 7:38 AM PDT Progress Notes by Rebeca Hadley RN at 10/07/17737 Author: Rebeca Hadley RN Service: (none) Author Type: Registered Nurse Filed: 10/07/17738 Date of Service: 10/07/17737 Status: Signed Muffler Tender: Rebeca Hadley RN (Registered Nurse) Please order and place patient in contact precautions for MRSA. Thank you! Rebeca Infectio n Prevention docume nted in this encounter Plan of Treatment Not on filedocumented as of this encounter Procedures + +--------+ + + + | Procedure Name | Priori | Date/Time | Associated Diagnosis | Comments | | | ty | | | | + +--------+ + + + | EXTERNAL LAB: CBC | Routin | 10/19/2017 | | Results for this | | | e | 7:40 AM | | procedure are in the | | | | PDT | | results section. | + +--------+ + + + | PROTIME INR | Routin | 10/19/2017 | | Results for this | | | e | 7:40 AM | | procedure are in the | | | | PDT | | results section. | + +--------+ + + + | PHOSPHORUS | Routin | 10/19/2017 | | Results for this | | | e | 7:40 AM | | procedure are in the | | | | PDT | | results section. | + +--------+ + + + | MAGNESIUM | Routin | 10/19/2017 | | Results for this | | | e | 7:40 AM | | procedure are in the | | | | PDT | | results section. | + +--------+ + + + | COMPREHENSIVE | Routin | 10/19/2017 | | Results for this | | METABOLIC PANEL | e | 7:40 AM | | procedure are in the | | | | PDT | | results section. | + +--------+ + + + | PTT | Routin | 10/18/2017 | | Results for this | | | e | 7:33 AM | | procedure are in the | | | | PDT | | results section. | + +--------+ + + + | PROTIME INR | Routin | 10/18/2017 | | Results for this | | | e | 7:33 AM | | procedure are in the | | | | PDT | | results section. | + +--------+ + + + | EXTERNAL LAB: CBC | Routin | 10/18/2017 | | Results for this | | | e | 1:53 AM | | procedure are in the | | | | PDT | | results section. | + +--------+ + + + | PHOSPHORUS | Routin | 10/18/2017 | | Results for this | | | e | 1:53 AM | | procedure are in the | | | | PDT | | results section. | + +--------+ + + + | MAGNESIUM | Routin | 10/18/2017 | | Results for this | | | e | 1:53 AM | | procedure are in the | | | | PDT | | results section. | + +--------+ + + + | VANCOMYCIN LEVEL | Routin | 10/18/2017 | | Results for this | | | e | 1:53 AM | | procedure are in the | | | | PDT | | results section. | + +--------+ + + + | COMPREHENSIVE | Routin | 10/18/2017 | | Results for this | | METABOLIC PANEL | e | 1:53 AM | | procedure are in the | | | | PDT | | results section. | + +--------+ + + + | PTT | Routin | 10/18/2017 | | Results for this | | | e | 1:52 AM | | procedure are in the | | | | PDT | | results section. | + +--------+ + + + | PTT | Routin | 10/17/2017 | | Results for this | | | e | 8:03 PM | | procedure are in the | | | | PDT | | results section. | + +--------+ + + + | PTT | Routin | 10/17/2017 | | Results for this | | | e | 11:46 AM | | procedure are in the | | | | PDT | | results section. | + +--------+ + + + | POC GLUCOSE | Routin | 10/17/2017 | | Results for this | | | e | 10:13 AM | | procedure are in the | | | | PDT | | results section. | + +--------+ + + + | EXTERNAL LAB: CBC | Routin | 10/17/2017 | | Results for this | | | e | 3:14 AM | | procedure are in the | | | | PDT | | results section. | + +--------+ + + + | PTT | Routin | 10/17/2017 | | Results for this | | | e | 3:14 AM | | procedure are in the | | | | PDT | | results section. | + +--------+ + + + | PROTIME INR | Routin | 10/17/2017 | | Results for this | | | e | 3:14 AM | | procedure are in the | | | | PDT | | results section. | + +--------+ + + + | PHOSPHORUS | Routin | 10/17/2017 | | Results for this | | | e | 3:14 AM | | procedure are in the | | | | PDT | | results section. | + +--------+ + + + | MAGNESIUM | Routin | 10/17/2017 | | Results for this | | | e | 3:14 AM | | procedure are in the | | | | PDT | | results section. | + +--------+ + + + | COMPREHENSIVE | Routin | 10/17/2017 | | Results for this | | METABOLIC PANEL | e | 3:14 AM | | procedure are in the | | | | PDT | | results section. | + +--------+ + + + | PTT | Routin | 10/16/2017 | | Results for this | | | e | 6:40 PM | | procedure are in the | | | | PDT | | results section. | + +--------+ + + + | PTT | Routin | 10/16/2017 | | Results for this | | | e | 11:51 AM | | procedure are in the | | | | PDT | | results section. | + +--------+ + + + | TROPONIN I | Routin | 10/16/2017 | | Results for this | | | e | 7:58 AM | | procedure are in the | | | | PDT | | results section. | + +--------+ + + + | PTT | Routin | 10/16/2017 | | Results for this | | | e | 5:23 AM | | procedure are in the | | | | PDT | | results section. | + +--------+ + + + | PROTIME INR | Routin | 10/16/2017 | | Results for this | | | e | 5:23 AM | | procedure are in the | | | | PDT | | results section. | + +--------+ + + + | EXTERNAL LAB: CBC | Routin | 10/16/2017 | | Results for this | | | e | 3:59 AM | | procedure are in the | | | | PDT | | results section. | + +--------+ + + + | TROPONIN I | Routin | 10/16/2017 | | Results for this | | | e | 3:59 AM | | procedure are in the | | | | PDT | | results section. | + +--------+ + + + | PHOSPHORUS | Routin | 10/16/2017 | | Results for this | | | e | 3:59 AM | | procedure are in the | | | | PDT | | results section. | + +--------+ + + + | MAGNESIUM | Routin | 10/16/2017 | | Results for this | | | e | 3:59 AM | | procedure are in the | | | | PDT | | results section. | + +--------+ + + + | COMPREHENSIVE | Routin | 10/16/2017 | | Results for this | | METABOLIC PANEL | e | 3:59 AM | | procedure are in the | | | | PDT | | results section. | + +--------+ + + + | XR CHEST 1 VIEW | Routin | 10/15/2017 | | Results for this | | | e | 11:47 PM | | procedure are in the | | | | PDT | | results section. | + +--------+ + + + | TROPONIN I | Routin | 10/15/2017 | | Results for this | | | e | 10:50 PM | | procedure are in the | | | | PDT | | results section. | + +--------+ + + + | PTT | Routin | 10/15/2017 | | Results for this | | | e | 10:50 PM | | procedure are in the | | | | PDT | | results section. | + +--------+ + + + | PTT | Routin | 10/15/2017 | | Results for this | | | e | 3:52 PM | | procedure are in the | | | | PDT | | results section. | + +--------+ + + + | PTT | Routin | 10/15/2017 | | Results for this | | | e | 2:18 PM | | procedure are in the | | | | PDT | | results section. | + +--------+ + + + | EXTERNAL LAB: CBC | Routin | 10/15/2017 | | Results for this | | | e | 5:56 AM | | procedure are in the | | | | PDT | | results section. | + +--------+ + + + | PTT | Routin | 10/15/2017 | | Results for this | | | e | 5:56 AM | | procedure are in the | | | | PDT | | results section. | + +--------+ + + + | PROTIME INR | Routin | 10/15/2017 | | Results for this | | | e | 5:56 AM | | procedure are in the | | | | PDT | | results section. | + +--------+ + + + | PHOSPHORUS | Routin | 10/15/2017 | | Results for this | | | e | 5:56 AM | | procedure are in the | | | | PDT | | results section. | + +--------+ + + + | MAGNESIUM | Routin | 10/15/2017 | | Results for this | | | e | 5:56 AM | | procedure are in the | | | | PDT | | results section. | + +--------+ + + + | COMPREHENSIVE | Routin | 10/15/2017 | | Results for this | | METABOLIC PANEL | e | 5:56 AM | | procedure are in the | | | | PDT | | results section. | + +--------+ + + + | VANCOMYCIN LEVEL | Routin | 10/14/2017 | | Results for this | | | e | 8:05 PM | | procedure are in the | | | | PDT | | results section. | + +--------+ + + + | EXTERNAL LAB: CBC | Routin | 10/14/2017 | | Results for this | | | e | 5:43 AM | | procedure are in the | | | | PDT | | results section. | + +--------+ + + + | PTT | Routin | 10/14/2017 | | Results for this | | | e | 5:43 AM | | procedure are in the | | | | PDT | | results section. | + +--------+ + + + | PHOSPHORUS | Routin | 10/14/2017 | | Results for this | | | e | 5:43 AM | | procedure are in the | | | | PDT | | results section. | + +--------+ + + + | MAGNESIUM | Routin | 10/14/2017 | | Results for this | | | e | 5:43 AM | | procedure are in the | | | | PDT | | results section. | + +--------+ + + + | VANCOMYCIN, TROUGH | Routin | 10/14/2017 | | Results for this | | | e | 5:43 AM | | procedure are in the | | | | PDT | | results section. | + +--------+ + + + | COMPREHENSIVE | Routin | 10/14/2017 | | Results for this | | METABOLIC PANEL | e | 5:43 AM | | procedure are in the | | | | PDT | | results section. | + +--------+ + + + | VAS UPPER EXTREMITY | Routin | 10/13/2017 | | Results for this | | VENOUS RIGHT | e | 1:55 PM | | procedure are in the | | | | PDT | | results section. | + +--------+ + + + | PTT | Routin | 10/13/2017 | | Results for this | | | e | 9:03 AM | | procedure are in the | | | | PDT | | results section. | + +--------+ + + + | EXTERNAL LAB: CBC | Routin | 10/13/2017 | | Results for this | | | e | 3:07 AM | | procedure are in the | | | | PDT | | results section. | + +--------+ + + + | PTT | Routin | 10/13/2017 | | Results for this | | | e | 3:07 AM | | procedure are in the | | | | PDT | | results section. | + +--------+ + + + | PHOSPHORUS | Routin | 10/13/2017 | | Results for this | | | e | 3:07 AM | | procedure are in the | | | | PDT | | results section. | + +--------+ + + + | MAGNESIUM | Routin | 10/13/2017 | | Results for this | | | e | 3:07 AM | | procedure are in the | | | | PDT | | results section. | + +--------+ + + + | COMPREHENSIVE | Routin | 10/13/2017 | | Results for this | | METABOLIC PANEL | e | 3:07 AM | | procedure are in the | | | | PDT | | results section. | + +--------+ + + + | PTT | Routin | 10/12/2017 | | Results for this | | | e | 8:56 PM | | procedure are in the | | | | PDT | | results section. | + +--------+ + + + | PTT | Routin | 10/12/2017 | | Results for this | | | e | 2:45 PM | | procedure are in the | | | | PDT | | results section. | + +--------+ + + + | VANCOMYCIN TROUGH | Routin | 10/12/2017 | | Results for this | | | e | 9:17 AM | | procedure are in the | | | | PDT | | results section. | + +--------+ + + + | PTT | Routin | 10/12/2017 | | Results for this | | | e | 7:28 AM | | procedure are in the | | | | PDT | | results section. | + +--------+ + + + | EXTERNAL LAB: CBC | Routin | 10/12/2017 | | Results for this | | | e | 5:35 AM | | procedure are in the | | | | PDT | | results section. | + +--------+ + + + | PHOSPHORUS | Routin | 10/12/2017 | | Results for this | | | e | 5:35 AM | | procedure are in the | | | | PDT | | results section. | + +--------+ + + + | MAGNESIUM | Routin | 10/12/2017 | | Results for this | | | e | 5:35 AM | | procedure are in the | | | | PDT | | results section. | + +--------+ + + + | COMPREHENSIVE | Routin | 10/12/2017 | | Results for this | | METABOLIC PANEL | e | 5:35 AM | | procedure are in the | | | | PDT | | results section. | + +--------+ + + + | PTT | Routin | 10/12/2017 | | Results for this | | | e | 12:13 AM | | procedure are in the | | | | PDT | | results section. | + +--------+ + + + | PTT | Routin | 10/11/2017 | | Results for this | | | e | 5:26 PM | | procedure are in the | | | | PDT | | results section. | + +--------+ + + + | IR INJECTION | Routin | 10/11/2017 | | Results for this | | DIALYSIS CIRCUIT W | e | 11:14 AM | | procedure are in the | | ANGIOPLASTY | | PDT | | results section. | + +--------+ + + + | IR PLACEMENT | Routin | 10/11/2017 | | Results for this | | TUNNELED CENTRAL | e | 11:14 AM | | procedure are in the | | VENOUS CATHETER > 5 | | PDT | | results section. | | YEARS | | | | | + +--------+ + + + | US GUIDED VASCULAR | Routin | 10/11/2017 | | Results for this | | ACCESS | e | 11:14 AM | | procedure are in the | | | | PDT | | results section. | + +--------+ + + + | POC GLUCOSE | Routin | 10/11/2017 | | Results for this | | | e | 5:37 AM | | procedure are in the | | | | PDT | | results section. | + +--------+ + + + | PTT | Routin | 10/11/2017 | | Results for this | | | e | 5:30 AM | | procedure are in the | | | | PDT | | results section. | + +--------+ + + + | EXTERNAL LAB: CBC | Routin | 10/11/2017 | | Results for this | | | e | 5:28 AM | | procedure are in the | | | | PDT | | results section. | + +--------+ + + + | PHOSPHORUS | Routin | 10/11/2017 | | Results for this | | | e | 5:28 AM | | procedure are in the | | | | PDT | | results section. | + +--------+ + + + | MAGNESIUM | Routin | 10/11/2017 | | Results for this | | | e | 5:28 AM | | procedure are in the | | | | PDT | | results section. | + +--------+ + + + | COMPREHENSIVE | Routin | 10/11/2017 | | Results for this | | METABOLIC PANEL | e | 5:28 AM | | procedure are in the | | | | PDT | | results section. | + +--------+ + + + | PTT | Routin | 10/10/2017 | | Results for this | | | e | 9:56 PM | | procedure are in the | | | | PDT | | results section. | + +--------+ + + + | POC GLUCOSE | Routin | 10/10/2017 | | Results for this | | | e | 9:29 PM | | procedure are in the | | | | PDT | | results section. | + +--------+ + + + | POC GLUCOSE | Routin | 10/10/2017 | | Results for this | | | e | 4:28 PM | | procedure are in the | | | | PDT | | results section. | + +--------+ + + + | PTT | Routin | 10/10/2017 | | Results for this | | | e | 2:19 PM | | procedure are in the | | | | PDT | | results section. | + +--------+ + + + | POC GLUCOSE | Routin | 10/10/2017 | | Results for this | | | e | 11:28 AM | | procedure are in the | | | | PDT | | results section. | + +--------+ + + + | EXTERNAL LAB: CBC | Routin | 10/10/2017 | | Results for this | | | e | 6:16 AM | | procedure are in the | | | | PDT | | results section. | + +--------+ + + + | PTT | Routin | 10/10/2017 | | Results for this | | | e | 6:16 AM | | procedure are in the | | | | PDT | | results section. | + +--------+ + + + | PHOSPHORUS | Routin | 10/10/2017 | | Results for this | | | e | 6:16 AM | | procedure are in the | | | | PDT | | results section. | + +--------+ + + + | MAGNESIUM | Routin | 10/10/2017 | | Results for this | | | e | 6:16 AM | | procedure are in the | | | | PDT | | results section. | + +--------+ + + + | COMPREHENSIVE | Routin | 10/10/2017 | | Results for this | | METABOLIC PANEL | e | 6:16 AM | | procedure are in the | | | | PDT | | results section. | + +--------+ + + + | POC GLUCOSE | Routin | 10/10/2017 | | Results for this | | | e | 5:45 AM | | procedure are in the | | | | PDT | | results section. | + +--------+ + + + | VAS UPPER EXTREMITY | Routin | 10/09/2017 | | Results for this | | VENOUS RIGHT | e | 9:50 PM | | procedure are in the | | | | PDT | | results section. | + +--------+ + + + | POC GLUCOSE | Routin | 10/09/2017 | | Results for this | | | e | 9:39 PM | | procedure are in the | | | | PDT | | results section. | + +--------+ + + + | CULTURE, BLOOD, 2ND | STAT | 10/09/2017 | | Results for this | | SPECIMEN (NON-ORD) | | 5:40 PM | | procedure are in the | | | | PDT | | results section. | + +--------+ + + + | CULTURE, BLOOD | STAT | 10/09/2017 | | Results for this | | | | 5:10 PM | | procedure are in the | | | | PDT | | results section. | + +--------+ + + + | POC GLUCOSE | Routin | 10/09/2017 | | Results for this | | | e | 11:03 AM | | procedure are in the | | | | PDT | | results section. | + +--------+ + + + | IR PLACEMENT | Routin | 10/09/2017 | | Results for this | | NON-TUNNELED CENTRAL | e | 9:00 AM | | procedure are in the | | VENOUS CATHETER > 5 | | PDT | | results section. | | YEARS | | | | | + +--------+ + + + | POC GLUCOSE | Routin | 10/09/2017 | | Results for this | | | e | 5:41 AM | | procedure are in the | | | | PDT | | results section. | + +--------+ + + + | EXTERNAL LAB: CBC | Routin | 10/09/2017 | | Results for this | | | e | 5:15 AM | | procedure are in the | | | | PDT | | results section. | + +--------+ + + + | PHOSPHORUS | Routin | 10/09/2017 | | Results for this | | | e | 5:15 AM | | procedure are in the | | | | PDT | | results section. | + +--------+ + + + | MAGNESIUM | Routin | 10/09/2017 | | Results for this | | | e | 5:15 AM | | procedure are in the | | | | PDT | | results section. | + +--------+ + + + | COMPREHENSIVE | Routin | 10/09/2017 | | Results for this | | METABOLIC PANEL | e | 5:15 AM | | procedure are in the | | | | PDT | | results section. | + +--------+ + + + | PTT | Routin | 10/09/2017 | | Results for this | | | e | 12:19 AM | | procedure are in the | | | | PDT | | results section. | + +--------+ + + + | PROTIME INR | Routin | 10/09/2017 | | Results for this | | | e | 12:19 AM | | procedure are in the | | | | PDT | | results section. | + +--------+ + + + | CBC NO DIFFERENTIAL | Routin | 10/09/2017 | | Results for this | | | e | 12:19 AM | | procedure are in the | | | | PDT | | results section. | + +--------+ + + + | POC GLUCOSE | Routin | 10/08/2017 | | Results for this | | | e | 9:50 PM | | procedure are in the | | | | PDT | | results section. | + +--------+ + + + | MRI SHOULDER RIGHT | Routin | 10/08/2017 | | Results for this | | WO CONTRAST | e | 7:27 PM | | procedure are in the | | | | PDT | | results section. | + +--------+ + + + | POC GLUCOSE | Routin | 10/08/2017 | | Results for this | | | e | 4:07 PM | | procedure are in the | | | | PDT | | results section. | + +--------+ + + + | POC GLUCOSE | Routin | 10/08/2017 | | Results for this | | | e | 11:27 AM | | procedure are in the | | | | PDT | | results section. | + +--------+ + + + | POC GLUCOSE | Routin | 10/08/2017 | | Results for this | | | e | 5:46 AM | | procedure are in the | | | | PDT | | results section. | + +--------+ + + + | EXTERNAL LAB: CBC | Routin | 10/08/2017 | | Results for this | | | e | 5:45 AM | | procedure are in the | | | | PDT | | results section. | + +--------+ + + + | TSH | Routin | 10/08/2017 | | Results for this | | | e | 5:45 AM | | procedure are in the | | | | PDT | | results section. | + +--------+ + + + | PHOSPHORUS | Routin | 10/08/2017 | | Results for this | | | e | 5:45 AM | | procedure are in the | | | | PDT | | results section. | + +--------+ + + + | MAGNESIUM | Routin | 10/08/2017 | | Results for this | | | e | 5:45 AM | | procedure are in the | | | | PDT | | results section. | + +--------+ + + + | HEMOGLOBIN A1C | Routin | 10/08/2017 | | Results for this | | | e | 5:45 AM | | procedure are in the | | | | PDT | | results section. | + +--------+ + + + | COMPREHENSIVE | Routin | 10/08/2017 | | Results for this | | METABOLIC PANEL | e | 5:45 AM | | procedure are in the | | | | PDT | | results section. | + +--------+ + + + | POC GLUCOSE | Routin | 10/07/2017 | | Results for this | | | e | 9:10 PM | | procedure are in the | | | | PDT | | results section. | + +--------+ + + + | POC GLUCOSE | Routin | 10/07/2017 | | Results for this | | | e | 5:46 PM | | procedure are in the | | | | PDT | | results section. | + +--------+ + + + | POC GLUCOSE | Routin | 10/07/2017 | | Results for this | | | e | 4:53 PM | | procedure are in the | | | | PDT | | results section. | + +--------+ + + + | CULTURE, ANAEROBIC | Routin | 10/07/2017 | | Results for this | | | e | 4:11 PM | | procedure are in the | | | | PDT | | results section. | + +--------+ + + + | POC GLUCOSE | Routin | 10/07/2017 | | Results for this | | | e | 1:35 PM | | procedure are in the | | | | PDT | | results section. | + +--------+ + + + | POC GLUCOSE | Routin | 10/07/2017 | | Results for this | | | e | 1:04 PM | | procedure are in the | | | | PDT | | results section. | + +--------+ + + + | IR PLACEMENT | Routin | 10/07/2017 | | Results for this | | NON-TUNNELED CENTRAL | e | 12:47 PM | | procedure are in the | | VENOUS CATHETER > 5 | | PDT | | results section. | | YEARS | | | | | + +--------+ + + + | IR ASPIRATION | Routin | 10/07/2017 | | Results for this | | ABSCESS HEMATOMA | e | 12:47 PM | | procedure are in the | | CYST | | PDT | | results section. | + +--------+ + + + | US GUIDED VASCULAR | Routin | 10/07/2017 | | Results for this | | ACCESS | e | 12:46 PM | | procedure are in the | | | | PDT | | results section. | + +--------+ + + + | CK TOTAL | Routin | 10/07/2017 | | Results for this | | | e | 9:22 AM | | procedure are in the | | | | PDT | | results section. | + +--------+ + + + | VANCOMYCIN LEVEL | Routin | 10/07/2017 | | Results for this | | | e | 9:22 AM | | procedure are in the | | | | PDT | | results section. | + +--------+ + + + | MRSA NAAT | Timed | 10/07/2017 | | Results for this | | | | 6:50 AM | | procedure are in the | | | | PDT | | results section. | + +--------+ + + + | CULTURE, BLOOD, 2ND | STAT | 10/07/2017 | | Results for this | | SPECIMEN (NON-ORD) | | 4:47 AM | | procedure are in the | | | | PDT | | results section. | + +--------+ + + + | CULTURE, BLOOD | STAT | 10/07/2017 | | Results for this | | | | 4:21 AM | | procedure are in the | | | | PDT | | results section. | + +--------+ + + + | CT ANGIOGRAM UPPER | Routin | 10/07/2017 | | Results for this | | EXTREMITY RIGHT W | e | 4:02 AM | | procedure are in the | | CONTRAST | | PDT | | results section. | + +--------+ + + + | HISTORICAL LAB PANEL | Routin | 10/07/2017 | | Results for this | | RESULT | e | 3:39 AM | | procedure are in the | | | | PDT | | results section. | + +--------+ + + + | TROPONIN I | Routin | 10/07/2017 | | Results for this | | | e | 3:39 AM | | procedure are in the | | | | PDT | | results section. | + +--------+ + + + | SEDIMENTATION RATE, | Routin | 10/07/2017 | | Results for this | | AUTOMATED | e | 3:39 AM | | procedure are in the | | | | PDT | | results section. | + +--------+ + + + | C-REACTIVE PROTEIN | Routin | 10/07/2017 | | Results for this | | | e | 3:39 AM | | procedure are in the | | | | PDT | | results section. | + +--------+ + + + | XR CHEST 1 VIEW | Routin | 10/06/2017 | | Results for this | | | e | 1:47 AM | | procedure are in the | | | | PDT | | results section. | + +--------+ + + + documented in this encounter Results Protime INR (10/19/2017 7:40 AM PDT) + + + + + + | Component | Value | Ref Range | Performed | Pathologist | | | | | At | Signature | + + + + + + | INR | 2.2Comment: REFERENCE | | EXTERNAL | | | [...] | | | | | performed at [facility];[address] | | | | | | [facility];[place], [place] | | | | | | [address] | | | | + + + [...] + +---------+ + + External Lab: CBC (10/19/2017 7:40 AM PDT) + + + + + + | Component | Value | Ref Range | Performed | Pathologist | | | | | At | Signature | + + + + + + | WBC | 7.12 | 3.80 - 11.00 | EXTERNAL | | | | | K/uL | LAB | | + + + + + + | RED CELL | 3.28 (L) | 4.20 - 5.70 | EXTERNAL | | | COUNT | | M/uL | LAB | | + + + + + + | Hgb | 9.3 (L) | 13.2 - 17.0 | EXTERNAL | | | | | g/dL | LAB | | + + + + + + | Hematocrit, | 29.1 (L) | 39.0 - 50.0 % | EXTERNAL | | | POC | | | LAB | | + + + + + + | MCV | 88.7 | 80.0 - 100.0 fl | EXTERNAL | | | | | | LAB | | + + + + + + | MCH | 28.3 | 27.0 - 34.0 pg | EXTERNAL | | | | | | LAB | | + + + + + + | MCHC | 31.9 (L) | 32.0 - 35.5 | EXTERNAL | | | | | g/dL | LAB | | + + + + + + | RDW-CV | 56.4 (H) | 37 - 53 fl | EXTERNAL | | | | | | LAB | | + + + + + + | Platelet | 248 | 150 - 400 K/uL | EXTERNAL | | | Count | | | LAB | | | Plasma | | | | | + + + + + + | MPV | 7.8 | fl | EXTERNAL | | | | | | LAB | | + + + + + + | Differentia | AUTOMATED | | EXTERNAL | | | l Type | | | LAB | | + + + + + + | % Segmented | 61.01 | % | EXTERNAL | | | | | | LAB | | | Neutrophils | | | | | + + + + + + | % | 10.88 | % | EXTERNAL | | | Lymphocytes | | | LAB | | + + + + + + | % Monocytes | 9.42 | % | EXTERNAL | | | | | | LAB | | + + + + + + | % | 18.01 | % | EXTERNAL | | | Eosinophils | | | LAB | | + + + + + + | % Basophils | 0.68 | % | EXTERNAL | | | | | | LAB | | + + + + + + | Absolute | 4.34 | 1.90 - 7.40 | EXTERNAL | | | Segmented | | K/uL | LAB | | | Neutrophils | | | | | + + + + + + | Absolute | 0.77 (L) | 1.00 - 3.90 | EXTERNAL | | | Lymphocytes | | K/uL | LAB | | + + + + + + | Absolute | 0.67 | 0.00 - 0.80 | EXTERNAL | | | Monocytes | | K/uL | LAB | | + + + + + + | Absolute | 1.28 (H) | 0.00 - 0.50 | EXTERNAL | | | Eosinophils | | K/uL | LAB | | + + + + + + | Absolute | 0.05Comment: Testing | 0.00 - 0.10 | EXTERNAL | | | Basophils | performed at [facility], [address] | [address] | LAB | | | | [address], | | | | | | [place] [address] | | | | + + + + + + + + | Specimen | + + | Blood specimen | | (specimen) | + + + +---------+ + + | Performing | Address | City/State/Zipcode | Phone Number | | Organization | | | | + +---------+ + + | EXTERNAL LAB | | | | + +---------+ + + Phosphorus (10/19/2017 7:40 AM PDT) + + + + + + | Component | Value | Ref Range | Performed | Pathologist | | | | | At | Signature | + + + + + + | PHOSPHORUS | 4.3Comment: Testing | 2.3 - 4.8 mg/dL | EXTERNAL | | | | performed at [facility], [address] | | LAB | | | | [address], | | | | | | [place] [address] | | | | + + + + + + + + | Specimen | + + | Blood specimen | | (specimen) | + + + +---------+ + + | Performing | Address | City/State/Zipcode | Phone Number | | Organization | | | | + +---------+ + + | EXTERNAL LAB | | | | + +---------+ + + Magnesium (10/19/2017 7:40 AM PDT) + + + + + + | Component | Value | Ref Range | Performed | Pathologist | | | | | At | Signature | + + + + + + | Magnesium | 2.3Comment: Testing | 1.7 - 2.4 mg/dL | EXTERNAL | | | | performed at [facility], [address] | | LAB | | | | [address], | | | | | | [place] [address] | | | | + + + [...] + +---------+ + + Comprehensive Metabolic Panel (10/19/2017 7:40 AM PDT) + + + + + + | Component | Value | Ref Range | Performed | Pathologist | | | | | At | Signature | + + + + + + | Na | 133 (L) | 135 - 145 | EXTERNAL | | | | | mmol/L | LAB | | + + + + + + | K | 4.8 | 3.5 - 4.9 | EXTERNAL | | | | | mmol/L | LAB | | + + + + + + | Cl | 96 (L) | 99 - 109 mmol/L | EXTERNAL | | | | | | LAB | | + + + + + + | CO2 | 26 | 23 - 32 mmol/L | EXTERNAL | | | | | | LAB | | + + + + + + | Anion Gap | 16 | 5 - 20 mmol/L | EXTERNAL | | | | | | LAB | | + + + + + + | Glucose, | 167 (H) | 65 - 99 mg/dL | EXTERNAL | | | Fasting | | | LAB | | + + + + + + | BUN | 29 (H) | 8 - 25 mg/dL | EXTERNAL | | | | | | LAB | | + + + + + + | Creatinine | 6.6 (H) | 0.70 - 1.30 | EXTERNAL | | | | | mg/dL | LAB | | + + + + + + | BUN/Creatin | 4 | | EXTERNAL | | | ine Ratio | | | LAB | | + + + + + + | Calcium | 8.2 (L) | 8.5 - 10.5 | EXTERNAL | | | | | mg/dL | LAB | | + + + + + + | Protein, | 7.5 | 6.3 - 8.2 g/dL | EXTERNAL | | | Total | | | LAB | | + + + + + + | Albumin | 2.9 (L) | 3.6 - 5.0 g/dL | EXTERNAL | | | | | | LAB | | + + + + + + | Globulin | 4.6 | 1.3 - 4.9 g/dL | EXTERNAL | | | | | | LAB | | + + + + + + | A/G Ratio | 0.6 (L) | 1.0 - 2.4 | EXTERNAL | | | | | | LAB | | + + + + + + | Bilirubin | 0.6 | 0.1 - 1.5 mg/dL | EXTERNAL | | | Total | | | LAB | | + + + + + + | ALP, | 78 | 35 - 115 U/L | EXTERNAL | | | External | | | LAB | | + + + + + + | AST | 27 | 10 - 45 U/L | EXTERNAL | | | | | | LAB | | + + + + + + | ALT | 19 | 10 - 65 U/L | EXTERNAL | | | | | | LAB | | + + + + + + | Estimated | 9 (L)Comment: GFR <60: [...] | | | | | | at [facility], [address] | | | | | | [facility], | | | | | | [place] [address] | | | | + + + + + + + + | Specimen | + + | Blood specimen | | (specimen) | + + + +---------+ + + | Performing | Address | City/State/Zipcode | Phone Number | | Organization | | | | + +---------+ + + | EXTERNAL LAB | | | | + +---------+ + + PTT (10/18/2017 7:33 AM PDT) + + + + + + | Component | Value | Ref Range | Performed | Pathologist | | | | | At | Signature | + + + + + + | aPTT, | NO CLOT DETECTEDComment: | 23 - 32 seconds | EXTERNAL | | | Patient | RESULTS CALLED TO | | LAB | | | | FAUSTINO S/SURG | | | | | | 0830T,JBREAD BACK | | | | | | RESULTS VERIFIEDTesting | | | | | | performed at [facility];[address] | | [address];[place], [place] | | | | | | [address] | | | | + + + + + + + + | Specimen | + + | Blood specimen | | (specimen) | + + + +---------+ + + | Performing | Address | City/State/Zipcode | Phone Number | | Organization | | | | + +---------+ + + | EXTERNAL LAB | | | | + +---------+ + + Protime INR (10/18/2017 7:33 AM PDT) + + + + + + | Component | Value | Ref Range | Performed | Pathologist | | | | | At | Signature | + + + + + + | INR | 3.6Comment: REFERENCE | | EXTERNAL | | | [...] | | | | | performed at [facility];[address] | | | | | | [address];[place] | | | | | | [address] | | | | + + + + + + + + | Specimen | + + | | + + + +---------+ + + | Performing | Address | City/State/Zipcode | Phone Number | | Organization | | | | + +---------+ + + | EXTERNAL LAB | | | | + +---------+ + + External Lab: CBC (10/18/2017 1:53 AM PDT) + + + + + + | Component | Value | Ref Range | Performed | Pathologist | | | | | At | Signature | + + + + + + | WBC | 7.39 | 3.80 - 11.00 | EXTERNAL | | | | | K/uL | LAB | | + + + + + + | RED CELL | 3.02 (L) | 4.20 - 5.70 | EXTERNAL | | | COUNT | | M/uL | LAB | | + + + + + + | Hgb | 8.7 (L) | 13.2 - 17.0 | EXTERNAL | | | | | g/dL | LAB | | + + + + + + | Hematocrit, | 26.8 (L) | 39.0 - 50.0 % | EXTERNAL | | | POC | | | LAB | | + + + + + + | MCV | 88.9 | 80.0 - 100.0 fl | EXTERNAL | | | | | | LAB | | + + + + + + | MCH | 28.8 | 27.0 - 34.0 pg | EXTERNAL | | | | | | LAB | | + + + + + + | MCHC | 32.4 | 32.0 - 35.5 | EXTERNAL | | | | | g/dL | LAB | | + + + + + + | RDW-CV | 55.6 (H) | 37 - 53 fl | EXTERNAL | | | | | | LAB | | + + + + + + | Platelet | 176 | 150 - 400 K/uL | EXTERNAL | | | Count | | | LAB | | | Plasma | | | | | + + + + + + | MPV | 8.3 | fl | EXTERNAL | | | | | | LAB | | + + + + + + | Differentia | AUTOMATED | | EXTERNAL | | | l Type | | | LAB | | + + + + + + | % Segmented | 64.52 | % | EXTERNAL | | | | | | LAB | | | Neutrophils | | | | | + + + + + + | % | 10.21 | % | EXTERNAL | | | Lymphocytes | | | LAB | | + + + + + + | % Monocytes | 10.81 | % | EXTERNAL | | | | | | LAB | | + + + + + + | % | 13.86 | % | EXTERNAL | | | Eosinophils | | | LAB | | + + + + + + | % Basophils | 0.60 | % | EXTERNAL | | | | | | LAB | | + + + + + + | Absolute | 4.77 | 1.90 - 7.40 | EXTERNAL | | | Segmented | | K/uL | LAB | | | Neutrophils | | | | | + + + + + + | Absolute | 0.76 (L) | 1.00 - 3.90 | EXTERNAL | | | Lymphocytes | | K/uL | LAB | | + + + + + + | Absolute | 0.80 | 0.00 - 0.80 | EXTERNAL | | | Monocytes | | K/uL | LAB | | + + + + + + | Absolute | 1.03 (H) | 0.00 - 0.50 | EXTERNAL | | | Eosinophils | | K/uL | LAB | | + + + + + + | Absolute | 0.05Comment: Testing | 0.00 - 0.10 | EXTERNAL | | | Basophils | performed at [facility], [address] | [address] | LAB | | | | [address], | | | | | | [place] [address] | | | | + + + + + + + + | Specimen | + + | Blood specimen | | (specimen) | + + + +---------+ + + | Performing | Address | City/State/Zipcode | Phone Number | | Organization | | | | + +---------+ + + | EXTERNAL LAB | | | | + +---------+ + + Phosphorus (10/18/2017 1:53 AM PDT) + + + + + + | Component | Value | Ref Range | Performed | Pathologist | | | | | At | Signature | + + + + + + | PHOSPHORUS | 5.5 (H)Comment: Testing | 2.3 - 4.8 mg/dL | EXTERNAL | | | | performed at [facility];[address] | | LAB | | | | [address];[place], [place] | | | | | | [address] | | | | + + + + + + + + | Specimen | + + | Blood specimen | | (specimen) | + + + +---------+ + + | Performing | Address | City/State/Zipcode | Phone Number | | Organization | | | | + +---------+ + + | EXTERNAL LAB | | | | + +---------+ + + Magnesium (10/18/2017 1:53 AM PDT) + + + + + + | Component | Value | Ref Range | Performed | Pathologist | | | | | At | Signature | + + + + + + | Magnesium | 2.3Comment: Testing | 1.7 - 2.4 mg/dL | EXTERNAL | | | | performed at [facility];[address] | | LAB | | | | [address];[place], [place] | | | | | | [address] | | | | + + + + + + + + | Specimen | + + | Blood specimen | | (specimen) | + + + +---------+ + + | Performing | Address | City/State/Zipcode | Phone Number | | Organization | | | | + +---------+ + + | EXTERNAL LAB | | | | + +---------+ + + Vancomycin Level (10/18/2017 1:53 AM PDT) + + + + + + | Component | Value | Ref Range | Performed | Pathologist | | | | | At | Signature | + + + + + + | Vancomycin | 20.46Comment: Testing | ug/mL | EXTERNAL | | | Random | performed at [facility] | | LAB | | | | [facility];[place], [place] | | | | | | [address] | | | | + + + [...] + +---------+ + + Comprehensive Metabolic Panel (10/18/2017 1:53 AM PDT) + + + + + + | Component | Value | Ref Range | Performed | Pathologist | | | | | At | Signature | + + + + + + | Na | 131 (L) | 135 - 145 | EXTERNAL | | | | | mmol/L | LAB | | + + + + + + | K | 4.8 | 3.5 - 4.9 | EXTERNAL | | | | | mmol/L | LAB | | + + + + + + | Cl | 95 (L) | 99 - 109 mmol/L | EXTERNAL | | | | | | LAB | | + + + + + + | CO2 | 25 | 23 - 32 mmol/L | EXTERNAL | | | | | | LAB | | + + + + + + | Anion Gap | 16 | 5 - 20 mmol/L | EXTERNAL | | | | | | LAB | | + + + + + + | Glucose, | 195 (H) | 65 - 99 mg/dL | EXTERNAL | | | Fasting | | | LAB | | + + + + + + | BUN | 35 (H) | 8 - 25 mg/dL | EXTERNAL | | | | | | LAB | | + + + + + + | Creatinine | 8.3 (H) | 0.70 - 1.30 | EXTERNAL | | | | | mg/dL | LAB | | + + + + + + | BUN/Creatin | 4 | | EXTERNAL | | | ine Ratio | | | LAB | | + + + + + + | Calcium | 7.4 (L) | 8.5 - 10.5 | EXTERNAL | | | | | mg/dL | LAB | | + + + + + + | Protein, | 6.9 | 6.3 - 8.2 g/dL | EXTERNAL | | | Total | | | LAB | | + + + + + + | Albumin | 2.7 (L) | 3.6 - 5.0 g/dL | EXTERNAL | | | | | | LAB | | + + + + + + | Globulin | 4.2 | 1.3 - 4.9 g/dL | EXTERNAL | | | | | | LAB | | + + + + + + | A/G Ratio | 0.6 (L) | 1.0 - 2.4 | EXTERNAL | | | | | | LAB | | + + + + + + | Bilirubin | 0.5 | 0.1 - 1.5 mg/dL | EXTERNAL | | | Total | | | LAB | | + + + + + + | ALP, | 77 | 35 - 115 U/L | EXTERNAL | | | External | | | LAB | | + + + + + + | AST | 20 | 10 - 45 U/L | EXTERNAL | | | | | | LAB | | + + + + + + | ALT | 17 | 10 - 65 U/L | EXTERNAL | | | | | [...] | | | | | | at [facility];[address] [place] [address] | | | | | | [address];[place] [address] | | | | + + + + + + + + | Specimen | + + | Blood specimen | | (specimen) | + + + +---------+ + + | Performing | Address | City/State/Zipcode | Phone Number | | Organization | | | | + +---------+ + + | EXTERNAL LAB | | | | + +---------+ + + PTT (10/18/2017 1:52 AM PDT) + + + + + + | Component | Value | Ref Range | Performed | Pathologist | | | | | At | Signature | + + + + + + | aPTT, | 56 (H)Comment: Testing | 23 - 32 seconds | EXTERNAL | | | Patient | performed at [facility];[address] | | LAB | | | | [address];[place], [place] | | | | | | [address] | | | | + + + + + + + + | Specimen | + + | Blood specimen | | (specimen) | + + + +---------+ + + | Performing | Address | City/State/Zipcode | Phone Number | | Organization | | | | + +---------+ + + | EXTERNAL LAB | | | | + +---------+ + + PTT (10/17/2017 8:03 PM PDT) + + + + + + | Component | Value | Ref Range | Performed | Pathologist | | | | | At | Signature | + + + + + + | aPTT, | 60 (H)Comment: Testing | 23 - 32 seconds | EXTERNAL | | | Patient | performed at [facility];[address] | | LAB | | | | [address];[place] | | | | | | [address] | | | | + + + + + + + + | Specimen | + + | Blood specimen | | (specimen) | + + + +---------+ + + | Performing | Address | City/State/Zipcode | Phone Number | | Organization | | | | + +---------+ + + | EXTERNAL LAB | | | | + +---------+ + + PTT (10/17/2017 11:46 AM PDT) + + + + + + | Component | Value | Ref Range | Performed | Pathologist | | | | | At | Signature | + + + + + + | aPTT, | 42 (H)Comment: Testing | 23 - 32 seconds | EXTERNAL | | | Patient | performed at [facility];[address] | | LAB | | | | [address];[place], [place] | | | | | | [address] | | | | + + + + + + + + | Specimen | + + | Blood specimen | | (specimen) | + + + +---------+ + + | Performing | Address | City/State/Zipcode | Phone Number | | Organization | | | | + +---------+ + + | EXTERNAL LAB | | | | + +---------+ + + POC Glucose (10/17/2017 10:13 AM PDT) + + + + + + | Component | Value | Ref Range | Performed | Pathologist | | | | | At | Signature | + + + + + + | Glucose, | 159 (H)Comment: Testing | 65 - 99 mg/dL | EXTERNAL | | | Fingerstick | performed at [facility];[address] | | LAB | | | | [address];[place] | | | | | | [address] | | | | + + + + + + + + | Specimen | + + | | + + + +---------+ + + | Performing | Address | City/State/Zipcode | Phone Number | | Organization | | | | + +---------+ + + | EXTERNAL LAB | | | | + +---------+ + + PTT (10/17/2017 3:14 AM PDT) + + + + + + | Component | Value | Ref Range | Performed | Pathologist | | | | | At | Signature | + + + + + + | aPTT, | 57 (H)Comment: Testing | 23 - 32 seconds | EXTERNAL | | | Patient | performed at [facility];[address] | | LAB | | | [address];[place], [place] | | | | | | [address] | | | | + + + + + + + + | Specimen | + + | | + + + +---------+ + + | Performing | Address | City/State/Zipcode | Phone Number | | Organization | | | | + +---------+ + + | EXTERNAL LAB | | | | + +---------+ + + Guyime INR (10/17/2017 3:14 AM PDT) + + + + + + | Component | Value | Ref Range | Performed | Pathologist | | | | | At | Signature | + + + + + + | INR | 1.8Comment: REFERENCE | | EXTERNAL | | | [...] | | | | | performed at [facility] | | | | | | [facility];[place], [place] | | | | | | [address] | | | | + + + [...] + +---------+ + + External Lab: CBC (10/17/2017 3:14 AM PDT) + + + + + + | Component | Value | Ref Range | Performed | Pathologist | | | | | At | Signature | + + + + + + | WBC | 7.37 | 3.80 - 11.00 | EXTERNAL | | | | | K/uL | LAB | | + + + + + + | RED CELL | 3.19 (L) | 4.20 - 5.70 | EXTERNAL | | | COUNT | | M/uL | LAB | | + + + + + + | Hgb | 9.4 (L) | 13.2 - 17.0 | EXTERNAL | | | | | g/dL | LAB | | + + + + + + | Hematocrit, | 28.3 (L) | 39.0 - 50.0 % | EXTERNAL | | | POC | | | LAB | | + + + + + + | MCV | 88.7 | 80.0 - 100.0 fl | EXTERNAL | | | | | | LAB | | + + + + + + | MCH | 29.5 | 27.0 - 34.0 pg | EXTERNAL | | | | | | LAB | | + + + + + + | MCHC | 33.3 | 32.0 - 35.5 | EXTERNAL | | | | | g/dL | LAB | | + + + + + + | RDW-CV | 58.2 (H) | 37 - 53 fl | EXTERNAL | | | | | | LAB | | + + + + + + | Platelet | 151 | 150 - 400 K/uL | EXTERNAL | | | Count | | | LAB | | | Plasma | | | | | + + + + + + | MPV | 7.8 | fl | EXTERNAL | | | | | | LAB | | + + + + + + | Differentia | AUTOMATED | | EXTERNAL | | | l Type | | | LAB | | + + + + + + | % Segmented | 64.33 | % | EXTERNAL | | | | | | LAB | | | Neutrophils | | | | | + + + + + + | % | 12.17 | % | EXTERNAL | | | Lymphocytes | | | LAB | | + + + + + + | % Monocytes | 10.98 | % | EXTERNAL | | | | | | LAB | | + + + + + + | % | 12.24 | % | EXTERNAL | | | Eosinophils | | | LAB | | + + + + + + | % Basophils | 0.28 | % | EXTERNAL | | | | | | LAB | | + + + + + + | Absolute | 4.74 | 1.90 - 7.40 | EXTERNAL | | | Segmented | | K/uL | LAB | | | Neutrophils | | | | | + + + + + + | Absolute | 0.90 (L) | 1.00 - 3.90 | EXTERNAL | | | Lymphocytes | | K/uL | LAB | | + + + + + + | Absolute | 0.81 (H) | 0.00 - 0.80 | EXTERNAL | | | Monocytes | | K/uL | LAB | | + + + + + + | Absolute | 0.90 (H) | 0.00 - 0.50 | EXTERNAL | | | Eosinophils | | K/uL | LAB | | + + + + + + | Absolute | 0.02 | 0.00 - 0.10 | EXTERNAL | | | Basophils | | K/uL | LAB | | + + + + + + | RBC | 2+Comment: ANISONORMAL | | EXTERNAL | | | Morphology | PLT MORPHTesting | | LAB | | | | performed at [facility], [address] | | | | | | [facility], | | | | | | [place] [address] | | | | | | | [...] | | + +---------+ + + Phosphorus (10/17/2017 3:14 AM PDT) + + + + + + | Component | Value | Ref Range | Performed | Pathologist | | | | | At | Signature | + + + + + + | PHOSPHORUS | 4.8Comment: Testing | 2.3 - 4.8 mg/dL | [...] | | + +---------+ + + Magnesium (10/17/2017 3:14 AM PDT) + + + + + + | Component | Value | Ref Range | Performed | Pathologist | | | | | At | Signature | + + + + + + | Magnesium | 2.1Comment: Testing | 1.7 - 2.4 mg/dL | EXTERNAL | | | | performed at [facility], [address] | | LAB | | | | [address], | | | | | | [place] [address] | | | | + + + [...] + +---------+ + + Comprehensive Metabolic Panel (10/17/2017 3:14 AM PDT) + + + + + + | Component | Value | Ref Range | Performed | Pathologist | | | | | At | Signature | + + + + + + | Na | 135 | 135 - 145 | EXTERNAL | | | | | mmol/L | LAB | | + + + + + + | K | 5.0 (H) | 3.5 - 4.9 | EXTERNAL | | | | | mmol/L | LAB | | + + + + + + | Cl | 96 (L) | 99 - 109 mmol/L | EXTERNAL | | | | | | LAB | | + + + + + + | CO2 | 30 | 23 - 32 mmol/L | EXTERNAL | | | | | | LAB | | + + + + + + | Anion Gap | 14 | 5 - 20 mmol/L | EXTERNAL | | | | | | LAB | | + + + + + + | Glucose, | 92 | 65 - 99 mg/dL | EXTERNAL | | | Fasting | | | LAB | | + + + + + + | BUN | 24 | 8 - 25 mg/dL | EXTERNAL | | | | | | LAB | | + + + + + + | Creatinine | 6.1 (H) | 0.70 - 1.30 | EXTERNAL | | | | | mg/dL | LAB | | + + + + + + | BUN/Creatin | 4 | | EXTERNAL | | | ine Ratio | | | LAB | | + + + + + + | Calcium | 8.0 (L) | 8.5 - 10.5 | EXTERNAL | | | | | mg/dL | LAB | | + + + + + + | Protein, | 7.3 | 6.3 - 8.2 g/dL | EXTERNAL | | | Total | | | LAB | | + + + + + + | Albumin | 2.9 (L) | 3.6 - 5.0 g/dL | EXTERNAL | | | | | | LAB | | + + + + + + | Globulin | 4.4 | 1.3 - 4.9 g/dL | EXTERNAL | | | | | | LAB | | + + + + + + | A/G Ratio | 0.7 (L) | 1.0 - 2.4 | EXTERNAL | | | | | | LAB | | + + + + + + | Bilirubin | 0.6 | 0.1 - 1.5 mg/dL | EXTERNAL | | | Total | | | LAB | | + + + + + + | ALP, | 74 | 35 - 115 U/L | EXTERNAL | | | External | | | LAB | | + + + + + + | AST | 20 | 10 - 45 U/L | EXTERNAL | | | | | | LAB | | + + + + + + | ALT | 13 | 10 - 65 U/L | EXTERNAL | | | | | [...] | | | | | | at [address], [address] | | | | | [address], | | | | | | [place] [address] | | | | + + + + + + + + | Specimen | + + | Blood specimen | | (specimen) | + + + +---------+ + + | Performing | Address | City/State/Zipcode | Phone Number | | Organization | | | | + +---------+ + + | EXTERNAL LAB | | | | + +---------+ + + PTT (10/16/2017 6:40 PM PDT) + + + + + + | Component | Value | Ref Range | Performed | Pathologist | | | | | At | Signature | + + + + + + | aPTT, | 78 ()Comment: CALLED | 23 - 32 seconds | EXTERNAL | | | Patient | NURSING UNITRESULT READ | | LAB | | | | BACK BY:DEMETRI SO/CHULA | | | | | | B @19:38, MYVTesting | | | | | | performed at [facility];[address];[place], [place] | | | | | | [address] | | | | + + + + + + + + | Specimen | + + | | + + + +---------+ + + | Performing | Address | City/State/Zipcode | Phone Number | | Organization | | | | + +---------+ + + | EXTERNAL LAB | | | | + +---------+ + + PTT (10/16/2017 11:51 AM PDT) + + + + + + | Component | Value | Ref Range | Performed | Pathologist | | | | | At | Signature | + + + + + + | aPTT, | 61 (H)Comment: Testing | 23 - 32 seconds | EXTERNAL | | | Patient | performed at [facility];[address] | [address] | | | | [address];[place] | | | | | | [address] | | | | + + + + + + + + | Specimen | + + | Blood specimen | | (specimen) | + + + +---------+ + + | Performing | Address | City/State/Zipcode | Phone Number | | Organization | | | | + +---------+ + + | EXTERNAL LAB | | | | + +---------+ + + Troponin I (10/16/2017 7:58 AM PDT) + + + + + + | Component | Value | Ref Range | Performed | Pathologist | | | | | At | Signature | + + + + + + | Troponin I, | <0.020Comment: 0.00 to | 0.00 - 0.10 | EXTERNAL | | | Qual | 0.10 CONSISTENT WITH | ng/mL | LAB | | | | NORMAL POPULATION0.11 | | | | | | to 0.60 CONSISTENT | | | | | | WITH INCREASED RISK FOR | | | | | | ADVERSE OUTCOMES> 0.60 | | | | | | CONSISTENT | | | | | | WITH WHO CRITERIA FOR | | | | | | ACUTE MD Testing | | | | | | performed at [facility];[address] | | [address] | [address];[place] | | | | | | [address] | | | | + + + + + + + + | Specimen | + + | Blood specimen | | (specimen) | + + + +---------+ + + | Performing | Address | City/State/Zipcode | Phone Number | | Organization | | | | + +---------+ + + | EXTERNAL LAB | | | | + +---------+ + + PTT (10/16/2017 5:23 AM PDT) + + + + + + | Component | Value | Ref Range | Performed | Pathologist | | | | | At | Signature | + + + + + + | aPTT, | 78 (HH)Comment: CALLED | 23 - 32 seconds | EXTERNAL | | | Patient | NURSING UNITREAD BACK | | LAB | | | | RESULTS VERIFIEDERIN B | | | | | | IN [facility] AT [address] BY | | | | | | TDTesting performed at | | | | | | [facility];[address] | | | | | | [facility] [place] [address] | | | | + + + + + + + + | Specimen | + + | Blood specimen | | (specimen) | + + + +---------+ + + | Performing | Address | City/State/Zipcode | Phone Number | | Organization | | | | + +---------+ + + | EXTERNAL LAB | | | | + +---------+ + + Protime INR (10/16/2017 5:23 AM PDT) + + + + + + | Component | Value | Ref Range | Performed | Pathologist | | | | | At | Signature | + + + + + + | INR | 1.2Comment: REFERENCE | | EXTERNAL | | | [...] | | | | | performed at [facility] | | | | | | [facility];[place], [place] | | | | | | [address] | | | | + + + + + + + + | Specimen | + + | Blood specimen | | (specimen) | + + + +---------+ + + | Performing | Address | City/State/Zipcode | Phone Number | | Organization | | | | + +---------+ + + | EXTERNAL LAB | | | | + +---------+ + + Troponin I (10/16/2017 3:59 AM PDT) + + + + + + | Component | Value | Ref Range | Performed | Pathologist | | | | | At | Signature | + + + + + + | Troponin I, | <0.020Comment: 0.00 to | 0.00 - 0.10 | EXTERNAL | | | Qual | 0.10 CONSISTENT WITH | ng/mL | LAB | | | | NORMAL POPULATION0.11 | | | | | | to 0.60 CONSISTENT | | | | | | WITH INCREASED RISK FOR | | | | | | ADVERSE OUTCOMES> 0.60 | | | | | | CONSISTENT | | | | | | WITH WHO CRITERIA FOR | | | | | | ACUTE MD Testing | | | | | | performed at [facility];[address] | | | | | | [address];[place], [place] | | | | | | [address] | | | | + + + [...] + +---------+ + + External Lab: CBC (10/16/2017 3:59 AM PDT) + + + + + + | Component | Value | Ref Range | Performed | Pathologist | | | | | At | Signature | + + + + + + | WBC | 12.27 (H) | 3.80 - 11.00 | EXTERNAL | | | | | K/uL | LAB | | + + + + + + | RED CELL | 3.50 (L) | 4.20 - 5.70 | EXTERNAL | | | COUNT | | M/uL | LAB | | + + + + + + | Hgb | 9.8 (L) | 13.2 - 17.0 | EXTERNAL | | | | | g/dL | LAB | | + + + + + + | Hematocrit, | 30.7 (L) | 39.0 - 50.0 % | EXTERNAL | | | POC | | | LAB | | + + + + + + | MCV | 87.7 | 80.0 - 100.0 fl | EXTERNAL | | | | | | LAB | | + + + + + + | MCH | 28.0 | 27.0 - 34.0 pg | EXTERNAL | | | | | | LAB | | + + + + + + | MCHC | 31.9 (L) | 32.0 - 35.5 | EXTERNAL | | | | | g/dL | LAB | | + + + + + + | RDW-CV | 57.3 (H) | 37 - 53 fl | EXTERNAL | | | | | | LAB | | + + + + + + | Platelet | 122 (L) | 150 - 400 K/uL | EXTERNAL | | | Count | | | LAB | | | Plasma | | | | | + + + + + + | MPV | 8.3 | fl | EXTERNAL | | | | | | LAB | | + + + + + + | Differentia | AUTOMATED | | EXTERNAL | | | l Type | | | LAB | | + + + + + + | % Segmented | 68.79 | % | EXTERNAL | | | | | | LAB | | | Neutrophils | | | | | + + + + + + | % | 8.05 | % | EXTERNAL | | | Lymphocytes | | | LAB | | + + + + + + | % Monocytes | 11.45 | % | EXTERNAL | | | | | | LAB | | + + + + + + | % | 10.98 | % | EXTERNAL | | | Eosinophils | | | LAB | | + + + + + + | % Basophils | 0.73 | % | EXTERNAL | | | | | | LAB | | + + + + + + | Absolute | 8.44 (H) | 1.90 - 7.40 | EXTERNAL | | | Segmented | | K/uL | LAB | | | Neutrophils | | | | | + + + + + + | Absolute | 0.99 (L) | 1.00 - 3.90 | EXTERNAL | | | Lymphocytes | | K/uL | LAB | | + + + + + + | Absolute | 1.41 (H) | 0.00 - 0.80 | EXTERNAL | | | Monocytes | | K/uL | LAB | | + + + + + + | Absolute | 1.35 (H) | 0.00 - 0.50 | EXTERNAL | | | Eosinophils | | K/uL | LAB | | + + + + + + | Absolute | 0.09 | 0.00 - 0.10 | EXTERNAL | | | Basophils | | K/uL | LAB | | + + + + + + | RBC | 1+ | | EXTERNAL | | | Morphology | Comment: | | LAB | | | | ANISO | | | | | | NORMAL PLT MORPH | | | | | | | | | | + + + + + + | Platelet | DECREASEDComment: | | EXTERNAL | | | Estimate | Testing performed at | | LAB | | | | [facility];[address];[place] [address] | | | | + + + + + + + + | Specimen | + + | Blood specimen | | (specimen) | + + + +---------+ + + | Performing | Address | City/State/Zipcode | Phone Number | | Organization | | | | + +---------+ + + | EXTERNAL LAB | | | | + +---------+ + + Phosphorus (10/16/2017 3:59 AM PDT) + + + + + + | Component | Value | Ref Range | Performed | Pathologist | | | | | At | Signature | + + + + + + | PHOSPHORUS | 5.4 (H)Comment: Testing | 2.3 - 4.8 mg/dL | EXTERNAL | | | | performed at [facility];[address] | | LAB | | | | [address];[place] | | | | | | [address] | | | | + + + + + + + + | Specimen | + + | Blood specimen | | (specimen) | + + + +---------+ + + | Performing | Address | City/State/Zipcode | Phone Number | | Organization | | | | + +---------+ + + | EXTERNAL LAB | | | | + +---------+ + + Magnesium (10/16/2017 3:59 AM PDT) + + + + + + | Component | Value | Ref Range | Performed | Pathologist | | | | | At | Signature | + + + + + + | Magnesium | 2.3Comment: SLT | 1.7 - 2.4 mg/dL | EXTERNAL | | | | HEMOLYSISTesting | | LAB | | | | performed at [facility] | | | | | | [address];[place] | | | | | | [address] | | | | + + + [...] + +---------+ + + Comprehensive Metabolic Panel (10/16/2017 3:59 AM PDT) + + + + + + | Component | Value | Ref Range | Performed | Pathologist | | | | | At | Signature | + + + + + + | Na | 134 (L) | 135 - 145 | EXTERNAL | | | | | mmol/L | LAB | | + + + + + + | K | 5.5 (H)Comment: SLT | 3.5 - 4.9 | EXTERNAL | | | | HEMOLYSIS | mmol/L | LAB | | + + + + + + | Cl | 98 (L) | 99 - 109 mmol/L | EXTERNAL | | | | | | LAB | | + + + + + + | CO2 | 26 | 23 - 32 mmol/L | EXTERNAL | | | | | | LAB | | + + + + + + | Anion Gap | 16 | 5 - 20 mmol/L | EXTERNAL | | | | | | LAB | | + + + + + + | Glucose, | 94 | 65 - 99 mg/dL | EXTERNAL | | | Fasting | | | LAB | | + + + + + + | BUN | 27 (H) | 8 - 25 mg/dL | EXTERNAL | | | | | | LAB | | + + + + + + | Creatinine | 8.0 (H) | 0.70 - 1.30 | EXTERNAL | | | | | mg/dL | LAB | | + + + + + + | BUN/Creatin | 3 | | EXTERNAL | | | ine Ratio | | | LAB | | + + + + + + | Calcium | 7.9 (L) | 8.5 - 10.5 | EXTERNAL | | | | | mg/dL | LAB | | + + + + + + | Protein, | 7.3 | 6.3 - 8.2 g/dL | EXTERNAL | | | Total | | | LAB | | + + + + + + | Albumin | 3.0 (L) | 3.6 - 5.0 g/dL | EXTERNAL | | | | | | LAB | | + + + + + + | Globulin | 4.3 | 1.3 - 4.9 g/dL | EXTERNAL | | | | | | LAB | | + + + + + + | A/G Ratio | 0.7 (L) | 1.0 - 2.4 | EXTERNAL | | | | | | LAB | | + + + + + + | Bilirubin | 0.5 | 0.1 - 1.5 mg/dL | EXTERNAL | | | Total | | | LAB | | + + + + + + | ALP, | 70 | 35 - 115 U/L | EXTERNAL | | | External | | | LAB | | + + + + + + | AST | 29Comment: SLT HEMOLYSIS | 10 - 45 U/L | EXTERNAL | | | | | | LAB | | + + + + + + | ALT | 20 | 10 - 65 U/L | EXTERNAL | | | | | [...] | | | | | | at [facility];[address] [place] [address] | | | | | | [facility];[place] [address] | | | | + + + [...] +---------+ + + XR Chest 1 Vw (10/15/2017 11:47 PM PDT) + + | Specimen | + + | | + + + + + | Impressions | Performed At | + + + | 1. No acute cardiopulmonary abnormality seen. 2. Left-sided | | | dialysis catheter with tip in the superior vena cava. [facility] | | | Electronically signed by Douglas Ortiz MD on Oct 16 2017 1:33AM | | | Referring Provider Line: [phone] ID: [id number] | | + + + + + + | Narrative | Performed At | + + + | EXAM: CHEST RADIOGRAPHY EXAM DATE: 10/15/2017 11:48 PM. | | | CLINICAL HISTORY: Chest pain. Dialysis. COMPARISON: 10/06/2017. | | | TECHNIQUE: 1 view. FINDINGS: Lungs/Pleura: No alveolar | | | consolidation or pleural effusion seen. No pneumothorax. | | | Mediastinum: Heart size is normal. Widening of the right paratracheal | | | stripe is similar compared with the prior exam. Other: Stent | | | extending from the right subclavian vein to the superior vena cava. | | | Left internal jugular dialysis catheter with the tip in the superior | | | vena cava. | | + + + + + | Procedure Note | + + | Néstor, Rad Conversion - 02/04/2019 8:18 AM PDT EXAM:CHEST RADIOGRAPHY EXAM DATE: | | 10/15/2017 11:48 PM. CLINICAL HISTORY: Chest pain. Dialysis. COMPARISON: 10/06/2017. | | TECHNIQUE: 1 view. FINDINGS:Lungs/Pleura: No alveolar consolidation or pleural effusion | | seen. No pneumothorax. Mediastinum: Heart size is normal. Widening of the right | | paratracheal stripe is similar compared with the prior exam. Other: Stent extending from | | the right subclavian vein to the superior vena cava. Left internal jugular dialysis | | catheter with the tip in the superior vena cava. IMPRESSION: 1. No acute | | cardiopulmonary abnormality seen.2. Left-sided dialysis catheter with tip in the | | superior vena cava. [facility] Electronically signed by Douglas Otriz MD on Oct 16 2017 | | 1:33AM Referring Provider Line: [phone] ID: [id number] | | | |FINDINGS: | |Lungs/Pleura: No alveolar consolidation or pleural effusion seen. No pneumothorax. | | | |Mediastinum: Heart size is normal. Widening of the right paratracheal stripe is similar com pared with the prior exam. | | | |Other: Stent extending from the right subclavian vein to the superior vena cava. Left inter nal jugular dialysis catheter with the tip in the superior vena cava. | | | |IMPRESSION: | | | |1. No acute cardiopulmonary abnormality seen. | |2. Left-sided dialysis catheter with tip in the superior vena cava. | | | |[facility] | | | | Electronically signed by Douglas Ortiz MD on Oct 16 2017 1:33AM Referring Provider Line: [phone] ID: [id number] | + + Troponin I (10/15/2017 10:50 PM PDT) + + + + + + | Component | Value | Ref Range | Performed | Pathologist | | | | | At | Signature | + + + + + + | Troponin I, | <0.020Comment: 0.00 to | 0.00 - 0.10 | EXTERNAL | | | Qual | 0.10 CONSISTENT WITH | ng/mL | LAB | | | | NORMAL POPULATION0.11 | | | | | | to 0.60 CONSISTENT | | | | | | WITH INCREASED RISK FOR | | | | | | ADVERSE OUTCOMES> 0.60 | | | | | | CONSISTENT | | | | | | WITH WHO CRITERIA FOR | | | | | | ACUTE MD Testing | | | | | | performed at [facility];[address] | | | | | | [address];[place], [place] | | | | | | [address] | | | | + + + + + + + + | Specimen | + + | Blood specimen | | (specimen) | + + + +---------+ + + | Performing | Address | City/State/Zipcode | Phone Number | | Organization | | | | + +---------+ + + | EXTERNAL LAB | | | | + +---------+ + + PTT (10/15/2017 10:50 PM PDT) + + + + + + | Component | Value | Ref Range | Performed | Pathologist | | | | | At | Signature | + + + + + + | aPTT, | 58 (H)Comment: Testing | 23 - 32 seconds | EXTERNAL | | | Patient | performed at [facility];[address] | | LAB | | | | [address];[place] | | | | | | [address] | | | | + + + + + + + + | Specimen | + + | Blood specimen | | (specimen) | + + + +---------+ + + | Performing | Address | City/State/Zipcode | Phone Number | | Organization | | | | + +---------+ + + | EXTERNAL LAB | | | | + +---------+ + + PTT (10/15/2017 3:52 PM PDT) + + + + + + | Component | Value | Ref Range | Performed | Pathologist | | | | | At | Signature | + + + + + + | aPTT, | 52 (H)Comment: Testing | 23 - 32 seconds | EXTERNAL | | | Patient | performed at [facility];[address] | | LAB | | | | [address];[place] | | | | | | [address] | | | | + + + + + + + + | Specimen | + + | Blood specimen | | (specimen) | + + + +---------+ + + | Performing | Address | City/State/Zipcode | Phone Number | | Organization | | | | + +---------+ + + | EXTERNAL LAB | | | | + +---------+ + + PTT (10/15/2017 2:18 PM PDT) + + + + + + | Component | Value | Ref Range | Performed | Pathologist | | | | | At | Signature | + + + + + + | aPTT, | NO CLOT DETECTEDComment: | 23 - 32 seconds | EXTERNAL | | | Patient | CALLED RESULTSREAD BACK | | LAB | | | | RESULTS | | | | | | VERIFIEDSUJABARI/LUIZ Yang AT | | | | | | 1522 BY SALTesting | | | | | | performed at [facility];[address] | | | | | | [address];[place] | | | | | | [address] | | | | + + + + + + + + | Specimen | + + | Blood specimen | | (specimen) | + + + +---------+ + + | Performing | Address | City/State/Zipcode | Phone Number | | Organization | | | | + +---------+ + + | EXTERNAL LAB | | | | + +---------+ + + PTT (10/15/2017 5:56 AM PDT) + + + + + + | Component | Value | Ref Range | Performed | Pathologist | | | | | At | Signature | + + + + + + | aPTT, | 31Comment: Testing | 23 - 32 seconds | EXTERNAL | | | Patient | performed at [facility];[address] | | LAB | | | | [address];[place], [place] | | | | | | [address] | | | | + + + + + + + + | Specimen | + + | Blood specimen | | (specimen) | + + + +---------+ + + | Performing | Address | City/State/Zipcode | Phone Number | | Organization | | | | + +---------+ + + | EXTERNAL LAB | | | | + +---------+ + + Protime INR (10/15/2017 5:56 AM PDT) + + + + + + | Component | Value | Ref Range | Performed | Pathologist | | | | | At | Signature | + + + + + + | INR | 1.0Comment: REFERENCE | | [...] | | | | | performed at [facility];[address] | | | [address];[place], [place] | | | | | | [address] | | | | + + + [...] + +---------+ + + External Lab: CBC (10/15/2017 5:56 AM PDT) + + +---- + + + | Component | Value | Ref Range | Performed | Pathologist | | | | | At | Signature | + + +---- + + + | WBC | 6.69 | 3.8 0 - 11.00 | EXTERNAL | | | | | K/u L | LAB | | + + +---- + + + | RED CELL | 3.44 (L) | 4.2 0 - 5.70 | EXTERNAL | | | COUNT | | M/u L | LAB | | + + +---- + + + | Hgb | 9.8 (L) | 13. 2 - 17.0 | EXTERNAL | | | | | g/d L | LAB | | + + +---- + + + | Hematocrit, | 30.4 (L) | 39. 0 - 50.0 % | EXTERNAL | | | POC | | | LAB | | + + +---- + + + | MCV | 88.3 | 80. 0 - 100.0 fl | EXTERNAL | | | | | | LAB | | + + +---- + + + | MCH | 28.3 | 27. 0 - 34.0 pg | EXTERNAL | | | | | | LAB | | + + +---- + + + | MCHC | 32.1 | 32. 0 - 35.5 | EXTERNAL | | | | | g/d L | LAB | | + + +---- + + + | RDW-CV | 57.3 (H) | 37 - 53 fl | EXTERNAL | | | | | | LAB | | + + +---- + + + | Platelet | 146 (L) | 150 - 400 K/uL | EXTERNAL | | | Count | | | LAB | | | Plasma | | | | | + + +---- + + + | MPV | 8.0 | fl | EXTERNAL | | | | | | LAB | | + + +---- + + + | Differentia | AUTOMATED | | EXTERNAL | | | l Type | | | LAB | | + + +---- + + + | % Segmented | 67.46 | % | EXTERNAL | | | | | | LAB | | | Neutrophils | | | | | + + +---- + + + | % | 10.52 | % | EXTERNAL | | | Lymphocytes | | | LAB | | + + +---- + + + | % Monocytes | 7.52 | % | EXTERNAL | | | | | | LAB | | + + +---- + + + | % | 14.04 | % | EXTERNAL | | | Eosinophils | | | LAB | | + + +---- + + + | % Basophils | 0.46 | % | EXTERNAL | | | | | | LAB | | + + +---- + + + | Absolute | 4.51 | 1.9 0 - 7.40 | EXTERNAL | | | Segmented | | K/u L | LAB | | | Neutrophils | | | | | + + +---- + + + | Absolute | 0.70 (L) | 1.0 0 - 3.90 | EXTERNAL | | | Lymphocytes | | K/u L | LAB | | + + +---- + + + | Absolute | 0.50 | 0.0 0 - 0.80 | EXTERNAL | | | Monocytes | | K/u L | LAB | | + + +---- + + + | Absolute | 0.94 (H) | 0.0 0 - 0.50 | EXTERNAL | | | Eosinophils | | K/u L | LAB | | + + +---- + + + | Absolute | 0.03 | 0.0 0 - 0.10 | EXTERNAL | | | Basophils | | K/u L | LAB | | + + +---- + + + | RBC | 2+Comment: | | EXTERNAL | | | Morphology | ANISO1+HYPONORMAL PLT | | LAB | | | | MORPHTesting performed | | | | | | at [facility], [address] | | | | | | [facility], | | | | | | [place] [address] | | | | | |Testing performed at [facility], [address] [facility], [place] [address] | | | | | | | | | | + + +---- + + + + + | Specimen | + + | Blood specimen | | (specimen) | + + + +---------+ + + | Performing | Address | City/State/Zipcode | Phone Number | | Organization | | | | + +---------+ + + | EXTERNAL LAB | | | | + +---------+ + + Phosphorus (10/15/2017 5:56 AM PDT) + + + + + + | Component | Value | Ref Range | Performed | Pathologist | | | | | At | Signature | + + + + + + | PHOSPHORUS | 4.8Comment: Testing | 2.3 - 4.8 mg/dL | EXTERNAL | | | | performed at [facility], [address] | | LAB | | | | [address], | | | | | | [place] [address] | | | | + + + + + + + + | Specimen | + + | Blood specimen | | (specimen) | + + + +---------+ + + | Performing | Address | City/State/Zipcode | Phone Number | | Organization | | | | + +---------+ + + | EXTERNAL LAB | | | | + +---------+ + + Magnesium (10/15/2017 5:56 AM PDT) + + + + + + | Component | Value | Ref Range | Performed | Pathologist | | | | | At | Signature | + + + + + + | Magnesium | 2.2Comment: Testing | 1.7 - 2.4 mg/dL | EXTERNAL | | | | performed at [facility], [address] | | LAB | | | | [address], | | | | | | [place] [address] | | | | + + + [...] + +---------+ + + Comprehensive Metabolic Panel (10/15/2017 5:56 AM PDT) + + + + + + | Component | Value | Ref Range | Performed | Pathologist | | | | | At | Signature | + + + + + + | Na | 134 (L) | 135 - 145 | EXTERNAL | | | | | mmol/L | LAB | | + + + + + + | K | 4.6 | 3.5 - 4.9 | EXTERNAL | | | | | mmol/L | LAB | | + + + + + + | Cl | 96 (L) | 99 - 109 mmol/L | EXTERNAL | | | | | | LAB | | + + + + + + | CO2 | 30 | 23 - 32 mmol/L | EXTERNAL | | | | | | LAB | | + + + + + + | Anion Gap | 13 | 5 - 20 mmol/L | EXTERNAL | | | | | | LAB | | + + + + + + | Glucose, | 78 | 65 - 99 mg/dL | EXTERNAL | | | Fasting | | | LAB | | + + + + + + | BUN | 21 | 8 - 25 mg/dL | EXTERNAL | | | | | | LAB | | + + + + + + | Creatinine | 6.7 (H) | 0.70 - 1.30 | EXTERNAL | | | | | mg/dL | LAB | | + + + + + + | BUN/Creatin | 3 | | EXTERNAL | | | ine Ratio | | | LAB | | + + + + + + | Calcium | 8.2 (L) | 8.5 - 10.5 | EXTERNAL | | | | | mg/dL | LAB | | + + + + + + | Protein, | 7.5 | 6.3 - 8.2 g/dL | EXTERNAL | | | Total | | | LAB | | + + + + + + | Albumin | 3.0 (L) | 3.6 - 5.0 g/dL | EXTERNAL | | | | | | LAB | | + + + + + + | Globulin | 4.5 | 1.3 - 4.9 g/dL | EXTERNAL | | | | | | LAB | | + + + + + + | A/G Ratio | 0.7 (L) | 1.0 - 2.4 | EXTERNAL | | | | | | LAB | | + + + + + + | Bilirubin | 0.7 | 0.1 - 1.5 mg/dL | EXTERNAL | | | Total | | | LAB | | + + + + + + | ALP, | 75 | 35 - 115 U/L | EXTERNAL | | | External | | | LAB | | + + + + + + | AST | 25 | 10 - 45 U/L | EXTERNAL | | | | | | LAB | | + + + + + + | ALT | 18 | 10 - 65 U/L | EXTERNAL | | | | | | LAB | | + + + + + + | Estimated | 9 (L)Comment: GFR <60: [...] [address] | | | | | | [facility], | | | | | | [place] [address] | | | | + + + + + + + + | Specimen | + + | Blood specimen | | (specimen) | + + + +---------+ + + | Performing | Address | City/State/Zipcode | Phone Number | | Organization | | | | + +---------+ + + | EXTERNAL LAB | | | | + +---------+ + + Vancomycin Level (10/14/2017 8:05 PM PDT) + + + + + + | Component | Value | Ref Range | Performed | Pathologist | | | | | At | Signature | + + + + + + | Vancomycin | 20.39Comment: Testing | ug/mL | EXTERNAL | | | Random | performed at [facility];[address] | | LAB | | | | [address];[place] | | | | | | [address] | | | | + + + + + + + + | Specimen | + + | Blood specimen | | (specimen) | + + + +---------+ + + | Performing | Address | City/State/Zipcode | Phone Number | | Organization | | | | + +---------+ + + | EXTERNAL LAB | | | | + +---------+ + + PTT (10/14/2017 5:43 AM PDT) + + + + + + | Component | Value | Ref Range | Performed | Pathologist | | | | | At | Signature | + + + + + + | aPTT, | 62 (H)Comment: Testing | 23 - 32 seconds | EXTERNAL | | | Patient | performed at [facility];[address] | | LAB | | | | [address];[place], [place] | | | | | | [address] | | | | + + + [...] + +---------+ + + External Lab: CBC (10/14/2017 5:43 AM PDT) + + + + + + | Component | Value | Ref Range | Performed | Pathologist | | | | | At | Signature | + + + + + + | WBC | 6.44 | 3.80 - 11.00 | EXTERNAL | | | | | K/uL | LAB | | + + + + + + | RED CELL | 3.35 (L) | 4.20 - 5.70 | EXTERNAL | | | COUNT | | M/uL | LAB | | + + + + + + | Hgb | 9.4 (L) | 13.2 - 17.0 | EXTERNAL | | | | | g/dL | LAB | | + + + + + + | Hematocrit, | 29.4 (L) | 39.0 - 50.0 % | EXTERNAL | | | POC | | | LAB | | + + + + + + | MCV | 87.6 | 80.0 - 100.0 fl | EXTERNAL | | | | | | LAB | | + + + + + + | MCH | 28.2 | 27.0 - 34.0 pg | EXTERNAL | | | | | | LAB | | + + + + + + | MCHC | 32.2 | 32.0 - 35.5 | EXTERNAL | | | | | g/dL | LAB | | + + + + + + | RDW-CV | 55.1 (H) | 37 - 53 fl | EXTERNAL | | | | | | LAB | | + + + + + + | Platelet | 143 (L) | 150 - 400 K/uL | EXTERNAL | | | Count | | | LAB | | | Plasma | | | | | + + + + + + | MPV | 7.2 | fl | EXTERNAL | | | | | | LAB | | + + + + + + | Differentia | AUTOMATED | | EXTERNAL | | | l Type | | | LAB | | + + + + + + | % Segmented | 62.89 | % | EXTERNAL | | | | | | LAB | | | Neutrophils | | | | | + + + + + + | % | 12.27 | % | EXTERNAL | | | Lymphocytes | | | LAB | | + + + + + + | % Monocytes | 8.48 | % | EXTERNAL | | | | | | LAB | | + + + + + + | % | 15.84 | % | EXTERNAL | | | Eosinophils | | | LAB | | + + + + + + | % Basophils | 0.52 | % | EXTERNAL | | | | | | LAB | | + + + + + + | Absolute | 4.05 | 1.90 - 7.40 | EXTERNAL | | | Segmented | | K/uL | LAB | | | Neutrophils | | | | | + + + + + + | Absolute | 0.79 (L) | 1.00 - 3.90 | EXTERNAL | | | Lymphocytes | | K/uL | LAB | | + + + + + + | Absolute | 0.55 | 0.00 - 0.80 | EXTERNAL | | | Monocytes | | K/uL | LAB | | + + + + + + | Absolute | 1.02 (H) | 0.00 - 0.50 | EXTERNAL | | | Eosinophils | | K/uL | LAB | | + + + + + + | Absolute | 0.03Comment: Testing | 0.00 - 0.10 | EXTERNAL | | | Basophils | performed at [facility];[address] | K/uL | LAB | | | | [address];[place], [place] | | | | | | [id number] | | | | + + + + + + + + | Specimen | + + | Blood specimen | | (specimen) | + + + +---------+ + + | Performing | Address | City/State/Zipcode | Phone Number | | Organization | | | | + +---------+ + + | EXTERNAL LAB | | | | + +---------+ + + Phosphorus (10/14/2017 5:43 AM PDT) + + + + + + | Component | Value | Ref Range | Performed | Pathologist | | | | | At | Signature | + + + + + + | PHOSPHORUS | 6.3 (H)Comment: Testing | 2.3 - 4.8 mg/dL | EXTERNAL | | | | performed at [facility] | | LAB | | | | [address];[place] | | | | | | [address] | | | | + + + + + + + + | Specimen | + + | Blood specimen | | (specimen) | + + + +---------+ + + | Performing | Address | City/State/Zipcode | Phone Number | | Organization | | | | + +---------+ + + | EXTERNAL LAB | | | | + +---------+ + + Magnesium (10/14/2017 5:43 AM PDT) + + + + + + | Component | Value | Ref Range | Performed | Pathologist | | | | | At | Signature | + + + + + + | Magnesium | 2.4Comment: Testing | 1.7 - 2.4 mg/dL | EXTERNAL | | | | performed at [facility];[address] | | LAB | | | | [facility], [place] | | | | | | [address] | | | | + + + + + + + + | Specimen | + + | Blood specimen | | (specimen) | + + + +---------+ + + | Performing | Address | City/State/Zipcode | Phone Number | | Organization | | | | + +---------+ + + | EXTERNAL LAB | | | | + +---------+ + + Vancomycin, Trough (10/14/2017 5:43 AM PDT) + + + + + + | Component | Value | Ref Range | Performed | Pathologist | | | | | At | Signature | + + + + + + | Vancomycin | 26.8 ()Comment: 15 to | 10 - 20 ug/mL | EXTERNAL | | | Trough | 20 ug/mL for meningitis, | | LAB | | | | osteomyelitis, | | | | | | endocarditis, sepsis, or | | | | | | healthcare associated | | | | | | pneumonia, or an TERRANCE | | | | | | equal to or greater than | | | | | | 1.0 ug/mLVANCOT PHONED | | | | | | TO DEMETRI Willoughby AT 0700 | | | | | | BY LJREAD BACK RESULTS | | | | | | VERIFIEDTesting | | | | | | performed at [facility];[address] | | | | | | [address];[place], [place] | | | | | | [address] | | | | + + + [...] + +---------+ + + Comprehensive Metabolic Panel (10/14/2017 5:43 AM PDT) + + + + + + | Component | Value | Ref Range | Performed | Pathologist | | | | | At | Signature | + + + + + + | Na | 133 (L) | 135 - 145 | EXTERNAL | | | | | mmol/L | LAB | | + + + + + + | K | 4.8 | 3.5 - 4.9 | EXTERNAL | | | | | mmol/L | LAB | | + + + + + + | Cl | 95 (L) | 99 - 109 mmol/L | EXTERNAL | | | | | | LAB | | + + + + + + | CO2 | 28 | 23 - 32 mmol/L | EXTERNAL | | | | | | LAB | | + + + + + + | Anion Gap | 15 | 5 - 20 mmol/L | EXTERNAL | | | | | | LAB | | + + + + + + | Glucose, | 91 | 65 - 99 mg/dL | EXTERNAL | | | Fasting | | | LAB | | + + + + + + | BUN | 35 (H) | 8 - 25 mg/dL | EXTERNAL | | | | | | LAB | | + + + + + + | Creatinine | 9.4 (H) | 0.70 - 1.30 | EXTERNAL | | | | | mg/dL | LAB | | + + + + + + | BUN/Creatin | 4 | | EXTERNAL | | | ine Ratio | | | LAB | | + + + + + + | Calcium | 7.9 (L) | 8.5 - 10.5 | EXTERNAL | | | | | mg/dL | LAB | | + + + + + + | Protein, | 6.9 | 6.3 - 8.2 g/dL | EXTERNAL | | | Total | | | LAB | | + + + + + + | Albumin | 2.8 (L) | 3.6 - 5.0 g/dL | EXTERNAL | | | | | | LAB | | + + + + + + | Globulin | 4.2 | 1.3 - 4.9 g/dL | EXTERNAL | | | | | | LAB | | + + + + + + | A/G Ratio | 0.7 (L) | 1.0 - 2.4 | EXTERNAL | | | | | | LAB | | + + + + + + | Bilirubin | 0.6 | 0.1 - 1.5 mg/dL | EXTERNAL | | | Total | | | LAB | | + + + + + + | ALP, | 70 | 35 - 115 U/L | EXTERNAL | | | External | | | LAB | | + + + + + + | AST | 23 | 10 - 45 U/L | EXTERNAL | | | | | | LAB | | + + + + + + | ALT | 17 | 10 - 65 U/L | EXTERNAL | | | | | [...] | | | | | | at [facility];[address] [place] [address] | | | | | | [facility];[place] [address] | | | | + + + + + + + + | Specimen | + + | Blood specimen | | (specimen) | + + + +---------+ + + | Performing | Address | City/State/Zipcode | Phone Number | | Organization | | | | + +---------+ + + | EXTERNAL LAB | | | | + +---------+ + + VAS Upper Extremity Venous Right (10/13/2017 1:55 PM PDT) + + | Specimen | + + | | + + + + + | Impressions | Performed At | + + + | 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 There is no new thrombus or extension into the right upper | | | extremity Electronically signed by Giovany Espitia MD on | | | 10/13/2017 2:17 PM | | + + + + + + | Narrative | Performed At | + + + | HISTORY: 52 -year-old male with pain and swelling TECHNIQUE: | | | Ultrasound of the right upper extremity deep venous systems. No prior | | | similar study available for comparison. This is a true duplex | | | examination with generation and interrogation of Doppler spectral | | | analysis, color flow and investigation waveforms. Where | | | investigated, these findings were unremarkable and supportive of the | | | conclusions of the attached report. FINDINGS: Normal | | | compression, color flow, respiratory variation and mechanical | | | augmentation at all interrogated points demonstrated.. Duplex | | | examination demonstrating normal color flow, Doppler spectral analysis | | | as expected for the venous structures here. Incidental findings | | | there is known thrombus of the right internal jugular vein. This is a | | | stable finding from the CT scan from 07 October 2017 | | + + + + + | Procedure Note | + + | Khalif Palm Conversion - 02/04/2019 8:18 AM PDT HISTORY: 52 -year-old male with pain | | and swelling TECHNIQUE: Ultrasound of the right upper extremity deep venous systems. No | | prior similar study available for comparison. This is a true duplex examination with | | generation and interrogation of Doppler spectral analysis, color flow and investigation | | waveforms. Where investigated, these findings were unremarkable and supportive of the | | conclusions of the attached report. FINDINGS: Normal compression, color flow, | | respiratory variation and mechanical augmentation at all interrogated points | | demonstrated.. Duplex examination demonstrating normal color flow, Doppler spectral | | analysis as expected for the venous structures here. Incidental findings there is known | | thrombus of the right internal jugular vein. 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 There is no new thrombus or extension into the right upper extremity | | | | | + + PTT (10/13/2017 9:03 AM PDT) + + + + + + | Component | Value | Ref Range | Performed | Pathologist | | | | | At | Signature | + + + + + + | aPTT, | 64 (H)Comment: Testing | 23 - 32 seconds | EXTERNAL | | | Patient | performed at [facility];[address] | | LAB | | | | [address];[place], [place] | | | | | | [address] | | | | + + + + + + + + | Specimen | + + | Blood specimen | | (specimen) | + + + +---------+ + + | Performing | Address | City/State/Zipcode | Phone Number | | Organization | | | | + +---------+ + + | EXTERNAL LAB | | | | + +---------+ + + PTT (10/13/2017 3:07 AM PDT) + + + + + + | Component | Value | Ref Range | Performed | Pathologist | | | | | At | Signature | + + + + + + | aPTT, | 60 (H)Comment: Testing | 23 - 32 seconds | EXTERNAL | | | Patient | performed at [facility];[address] | | LAB | | | | [address];[place], [place] | | | | | | [address] | | | | + + + [...] + +---------+ + + External Lab: CBC (10/13/2017 3:07 AM PDT) + + + + + + | Component | Value | Ref Range | Performed | Pathologist | | | | | At | Signature | + + + + + + | WBC | 6.48 | 3.80 - 11.00 | EXTERNAL | | | | | K/uL | LAB | | + + + + + + | RED CELL | 3.17 (L) | 4.20 - 5.70 | EXTERNAL | | | COUNT | | M/uL | LAB | | + + + + + + | Hgb | 9.3 (L) | 13.2 - 17.0 | EXTERNAL | | | | | g/dL | LAB | | + + + + + + | Hematocrit, | 28.0 (L) | 39.0 - 50.0 % | EXTERNAL | | | POC | | | LAB | | + + + + + + | MCV | 88.2 | 80.0 - 100.0 fl | EXTERNAL | | | | | | LAB | | + + + + + + | MCH | 29.3 | 27.0 - 34.0 pg | EXTERNAL | | | | | | LAB | | + + + + + + | MCHC | 33.2 | 32.0 - 35.5 | EXTERNAL | | | | | g/dL | LAB | | + + + + + + | RDW-CV | 56.9 (H) | 37 - 53 fl | EXTERNAL | | | | | | LAB | | + + + + + + | Platelet | 132 (L) | 150 - 400 K/uL | EXTERNAL | | | Count | | | LAB | | | Plasma | | | | | + + + + + + | MPV | 7.4 | fl | EXTERNAL | | | | | | LAB | | + + + + + + | Differentia | AUTOMATED | | EXTERNAL | | | l Type | | | LAB | | + + + + + + | % Segmented | 62.39 | % | EXTERNAL | | | | | | LAB | | | Neutrophils | | | | | + + + + + + | % | 14.16 | % | EXTERNAL | | | Lymphocytes | | | LAB | | + + + + + + | % Monocytes | 12.53 | % | EXTERNAL | | | | | | LAB | | + + + + + + | % | 10.24 | % | EXTERNAL | | | Eosinophils | | | LAB | | + + + + + + | % Basophils | 0.68 | % | EXTERNAL | | | | | | LAB | | + + + + + + | Absolute | 4.04 | 1.90 - 7.40 | EXTERNAL | | | Segmented | | K/uL | LAB | | | Neutrophils | | | | | + + + + + + | Absolute | 0.92 (L) | 1.00 - 3.90 | EXTERNAL | | | Lymphocytes | | K/uL | LAB | | + + + + + + | Absolute | 0.81 (H) | 0.00 - 0.80 | EXTERNAL | | | Monocytes | | K/uL | LAB | | + + + + + + | Absolute | 0.66 (H) | 0.00 - 0.50 | EXTERNAL | | | Eosinophils | | K/uL | LAB | | + + + + + + | Absolute | 0.04 | 0.00 - 0.10 | EXTERNAL | | | Basophils | | K/uL | LAB | | + + + + + + | RBC | RBC AND PLT MORPHOLOGY | | EXTERNAL | | | Morphology | APPEAR NORMALComment: | | LAB | | | | Testing performed at | | | | | | [facility], [address] [place] [address] | | | | | | [facility], [place], [place] | | | | | | [address] | | | | + + + + + + + + | Specimen | + + | Blood specimen | | (specimen) | + + + +---------+ + + | Performing | Address | City/State/Zipcode | Phone Number | | Organization | | | | + +---------+ + + | EXTERNAL LAB | | | | + +---------+ + + Phosphorus (10/13/2017 3:07 AM PDT) + + + + + + | Component | Value | Ref Range | Performed | Pathologist | | | | | At | Signature | + + + + + + | PHOSPHORUS | 5.1 (H)Comment: Testing | 2.3 - 4.8 mg/dL | EXTERNAL | | | | performed at [facility], [address] | | LAB | | | | [address], | | | | | | [place] [address] | | | | + + + + + + + + | Specimen | + + | Blood specimen | | (specimen) | + + + +---------+ + + | Performing | Address | City/State/Zipcode | Phone Number | | Organization | | | | + +---------+ + + | EXTERNAL LAB | | | | + +---------+ + + Magnesium (10/13/2017 3:07 AM PDT) + + + + + + | Component | Value | Ref Range | Performed | Pathologist | | | | | At | Signature | + + + + + + | Magnesium | 2.1Comment: Testing | 1.7 - 2.4 mg/dL | EXTERNAL | | | | performed at [facility], [address] | | LAB | | | | [address], | | | | | | [place] [address] | | | | + + + [...] + +---------+ + + Comprehensive Metabolic Panel (10/13/2017 3:07 AM PDT) + + + + + + | Component | Value | Ref Range | Performed | Pathologist | | | | | At | Signature | + + + + + + | Na | 134 (L) | 135 - 145 | EXTERNAL | | | | | mmol/L | LAB | | + + + + + + | K | 4.6 | 3.5 - 4.9 | EXTERNAL | | | | | mmol/L | LAB | | + + + + + + | Cl | 98 (L) | 99 - 109 mmol/L | EXTERNAL | | | | | | LAB | | + + + + + + | CO2 | 29 | 23 - 32 mmol/L | EXTERNAL | | | | | | LAB | | + + + + + + | Anion Gap | 12 | 5 - 20 mmol/L | EXTERNAL | | | | | | LAB | | + + + + + + | Glucose, | 106 (H) | 65 - 99 mg/dL | EXTERNAL | | | Fasting | | | LAB | | + + + + + + | BUN | 26 (H) | 8 - 25 mg/dL | EXTERNAL | | | | | | LAB | | + + + + + + | Creatinine | 7.1 (H) | 0.70 - 1.30 | EXTERNAL | | | | | mg/dL | LAB | | + + + + + + | BUN/Creatin | 4 | | EXTERNAL | | | ine Ratio | | | LAB | | + + + + + + | Calcium | 7.9 (L) | 8.5 - 10.5 | EXTERNAL | | | | | mg/dL | LAB | | + + + + + + | Protein, | 6.8 | 6.3 - 8.2 g/dL | EXTERNAL | | | Total | | | LAB | | + + + + + + | Albumin | 2.8 (L) | 3.6 - 5.0 g/dL | EXTERNAL | | | | | | LAB | | + + + + + + | Globulin | 4.0 | 1.3 - 4.9 g/dL | EXTERNAL | | | | | | LAB | | + + + + + + | A/G Ratio | 0.7 (L) | 1.0 - 2.4 | EXTERNAL | | | | | | LAB | | + + + + + + | Bilirubin | 0.7 | 0.1 - 1.5 mg/dL | EXTERNAL | | | Total | | | LAB | | + + + + + + | ALP, | 66 | 35 - 115 U/L | EXTERNAL | | | External | | | LAB | | + + + + + + | AST | 26 | 10 - 45 U/L | EXTERNAL | | | | | | LAB | | + + + + + + | ALT | 14 | 10 - 65 U/L | EXTERNAL | | | | | | LAB | | + + + + + + | Estimated | 9 (L)Comment: GFR <60: [...] [address], | | | | | | [place] [address] | | | | + + + + + + + + | Specimen | + + | Blood specimen | | (specimen) | + + + +---------+ + + | Performing | Address | City/State/Zipcode | Phone Number | | Organization | | | | + +---------+ + + | EXTERNAL LAB | | | | + +---------+ + + PTT (10/12/2017 8:56 PM PDT) + + + + + + | Component | Value | Ref Range | Performed | Pathologist | | | | | At | Signature | + + + + + + | aPTT, | 45 (H)Comment: Testing | 23 - 32 seconds | EXTERNAL | | | Patient | performed at [facility];[address] | | LAB | | | | [address];[place] | | | | | | [address] | | | | + + + + + + + + | Specimen | + + | Blood specimen | | (specimen) | + + + +---------+ + + | Performing | Address | City/State/Zipcode | Phone Number | | Organization | | | | + +---------+ + + | EXTERNAL LAB | | | | + +---------+ + + PTT (10/12/2017 2:45 PM PDT) + + + + + + | Component | Value | Ref Range | Performed | Pathologist | | | | | At | Signature | + + + + + + | aPTT, | 40 (H)Comment: Testing | 23 - 32 seconds | EXTERNAL | | | Patient | performed at [facility];[address] | | LAB | | | | [facility];[place], [place] | | | | | | [address] | | | | + + + + + + + + | Specimen | + + | Blood specimen | | (specimen) | + + + +---------+ + + | Performing | Address | City/State/Zipcode | Phone Number | | Organization | | | | + +---------+ + + | EXTERNAL LAB | | | | + +---------+ + + Vancomycin, Trough (10/12/2017 9:17 AM PDT) + + + + + + | Component | Value | Ref Range | Performed | Pathologist | | | | | At | Signature | + + + + + + | Vancomycin | 24.1 ()Comment: 15 to | 10 - 20 ug/mL | EXTERNAL | | | Trough | 20 ug/mL for meningitis, | | LAB | | | | osteomyelitis, | | | | | | endocarditis, sepsis, or | | | | | | healthcare associated | | | | | | pneumonia, or an TERRANCE | | | | | | equal to or greater than | | | | | | 1.0 ug/mLCALLED NURSING | | | | | | UNITREAD BACK RESULTS | | | | | | VERIFIEDCALLED TO | | | | | | MANAS IN [facility] AT | | | | | | [id number] BY LGJTesting | | | | | | performed at [facility] | | | | | | [address];[place], [place] | | | | | | [address] | | | | + + + + + + + + | Specimen | + + | Blood specimen | | (specimen) | + + + +---------+ + + | Performing | Address | City/State/Zipcode | Phone Number | | Organization | | | | + +---------+ + + | EXTERNAL LAB | | | | + +---------+ + + PTT (10/12/2017 7:28 AM PDT) + + + + + + | Component | Value | Ref Range | Performed | Pathologist | | | | | At | Signature | + + + + + + | aPTT, | 42 (H)Comment: Testing | 23 - 32 seconds | EXTERNAL | | | Patient | performed at [facility];[address] | | LAB | | | | [address];[place], [place] | | | | | | [address] | | | | + + + [...] + +---------+ + + External Lab: CBC (10/12/2017 5:35 AM PDT) + + + + + + | Component | Value | Ref Range | Performed | Pathologist | | | | | At | Signature | + + + + + + | WBC | 5.87 | 3.80 - 11.00 | EXTERNAL | | | | | K/uL | LAB | | + + + + + + | RED CELL | 3.32 (L) | 4.20 - 5.70 | EXTERNAL | | | COUNT | | M/uL | LAB | | + + + + + + | Hgb | 9.5 (L) | 13.2 - 17.0 | EXTERNAL | | | | | g/dL | LAB | | + + + + + + | Hematocrit, | 29.0 (L) | 39.0 - 50.0 % | EXTERNAL | | | POC | | | LAB | | + + + + + + | MCV | 87.3 | 80.0 - 100.0 fl | EXTERNAL | | | | | | LAB | | + + + + + + | MCH | 28.5 | 27.0 - 34.0 pg | EXTERNAL | | | | | | LAB | | + + + + + + | MCHC | 32.6 | 32.0 - 35.5 | EXTERNAL | | | | | g/dL | LAB | | + + + + + + | RDW-CV | 53.8 (H) | 37 - 53 fl | EXTERNAL | | | | | | LAB | | + + + + + + | Platelet | 158 | 150 - 400 K/uL | EXTERNAL | | | Count | | | LAB | | | Plasma | | | | | + + + + + + | MPV | 7.0 | fl | EXTERNAL | | | | | | LAB | | + + + + + + | Differentia | AUTOMATED | | EXTERNAL | | | l Type | | | LAB | | + + + + + + | % Segmented | 60.51 | % | EXTERNAL | | | | | | LAB | | | Neutrophils | | | | | + + + + + + | % | 11.90 | % | EXTERNAL | | | Lymphocytes | | | LAB | | + + + + + + | % Monocytes | 11.58 | % | EXTERNAL | | | | | | LAB | | + + + + + + | % | 15.42 | % | EXTERNAL | | | Eosinophils | | | LAB | | + + + + + + | % Basophils | 0.59 | % | EXTERNAL | | | | | | LAB | | + + + + + + | Absolute | 3.55 | 1.90 - 7.40 | EXTERNAL | | | Segmented | | K/uL | LAB | | | Neutrophils | | | | | + + + + + + | Absolute | 0.70 (L) | 1.00 - 3.90 | EXTERNAL | | | Lymphocytes | | K/uL | LAB | | + + + + + + | Absolute | 0.68 | 0.00 - 0.80 | EXTERNAL | | | Monocytes | | K/uL | LAB | | + + + + + + | Absolute | 0.91 (H) | 0.00 - 0.50 | EXTERNAL | | | Eosinophils | | K/uL | LAB | | + + + + + + | Absolute | 0.04Comment: Testing | 0.00 - 0.10 | EXTERNAL | | | Basophils | performed at [facility], [address] | K[address] | LAB | | | | [address], | | | | | | [place] [address] | | | | + + + + + + + + | Specimen | + + | Blood specimen | | (specimen) | + + + +---------+ + + | Performing | Address | City/State/Zipcode | Phone Number | | Organization | | | | + +---------+ + + | EXTERNAL LAB | | | | + +---------+ + + Phosphorus (10/12/2017 5:35 AM PDT) + + + + + + | Component | Value | Ref Range | Performed | Pathologist | | | | | At | Signature | + + + + + + | PHOSPHORUS | 6.1 (H)Comment: Testing | 2.3 - 4.8 mg/dL | EXTERNAL | | | | performed at [facility], [address] | | LAB | | | | [address], | | | | | | [place] [address] | | | | + + + + + + + + | Specimen | + + | Blood specimen | | (specimen) | + + + +---------+ + + | Performing | Address | City/State/Zipcode | Phone Number | | Organization | | | | + +---------+ + + | EXTERNAL LAB | | | | + +---------+ + + Magnesium (10/12/2017 5:35 AM PDT) + + + + + + | Component | Value | Ref Range | Performed | Pathologist | | | | | At | Signature | + + + + + + | Magnesium | 2.2Comment: Testing | 1.7 - 2.4 mg/dL | EXTERNAL | | | | performed at [facility], [address] | | LAB | | | | [address], | | | | | | [place] [address] | | | | + + + [...] + +---------+ + + Comprehensive Metabolic Panel (10/12/2017 5:35 AM PDT) + + + + + + | Component | Value | Ref Range | Performed | Pathologist | | | | | At | Signature | + + + + + + | Na | 134 (L) | 135 - 145 | EXTERNAL | | | | | mmol/L | LAB | | + + + + + + | K | 5.0 (H) | 3.5 - 4.9 | EXTERNAL | | | | | mmol/L | LAB | | + + + + + + | Cl | 98 (L) | 99 - 109 mmol/L | EXTERNAL | | | | | | LAB | | + + + + + + | CO2 | 24 | 23 - 32 mmol/L | EXTERNAL | | | | | | LAB | | + + + + + + | Anion Gap | 17 | 5 - 20 mmol/L | EXTERNAL | | | | | | LAB | | + + + + + + | Glucose, | 95 | 65 - 99 mg/dL | EXTERNAL | | | Fasting | | | LAB | | + + + + + + | BUN | 38 (H) | 8 - 25 mg/dL | EXTERNAL | | | | | | LAB | | + + + + + + | Creatinine | 9.2 (H) | 0.70 - 1.30 | EXTERNAL | | | | | mg/dL | LAB | | + + + + + + | BUN/Creatin | 4 | | EXTERNAL | | | ine Ratio | | | LAB | | + + + + + + | Calcium | 8.2 (L) | 8.5 - 10.5 | EXTERNAL | | | | | mg/dL | LAB | | + + + + + + | Protein, | 7.0 | 6.3 - 8.2 g/dL | EXTERNAL | | | Total | | | LAB | | + + + + + + | Albumin | 2.9 (L) | 3.6 - 5.0 g/dL | EXTERNAL | | | | | | LAB | | + + + + + + | Globulin | 4.1 | 1.3 - 4.9 g/dL | EXTERNAL | | | | | | LAB | | + + + + + + | A/G Ratio | 0.7 (L) | 1.0 - 2.4 | EXTERNAL | | | | | | LAB | | + + + + + + | Bilirubin | 0.6 | 0.1 - 1.5 mg/dL | EXTERNAL | | | Total | | | LAB | | + + + + + + | ALP, | 66 | 35 - 115 U/L | EXTERNAL | | | External | | | LAB | | + + + + + + | AST | 22 | 10 - 45 U/L | EXTERNAL | | | | | | LAB | | + + + + + + | ALT | 16 | 10 - 65 U/L | EXTERNAL | | | | | [...] | | | | | | [address], | | | | | | [place] [address] | | | | + + + + + + + + | Specimen | + + | Blood specimen | | (specimen) | + + + +---------+ + + | Performing | Address | City/State/Zipcode | Phone Number | | Organization | | | | + +---------+ + + | EXTERNAL LAB | | | | + +---------+ + + PTT (10/12/2017 12:13 AM PDT) + + + + + + | Component | Value | Ref Range | Performed | Pathologist | | | | | At | Signature | + + + + + + | aPTT, | 35 (H)Comment: Testing | 23 - 32 seconds | EXTERNAL | | | Patient | performed at [facility];[address] | | LAB | | | | [address];[place] | | | | | | [address] | | | | + + + + + + + + | Specimen | + + | Blood specimen | | (specimen) | + + + +---------+ + + | Performing | Address | City/State/Zipcode | Phone Number | | Organization | | | | + +---------+ + + | EXTERNAL LAB | | | | + +---------+ + + PTT (10/11/2017 5:26 PM PDT) + + + + + + | Component | Value | Ref Range | Performed | Pathologist | | | | | At | Signature | + + + + + + | aPTT, | 150 ()Comment: CALLED | 23 - 32 seconds | EXTERNAL | | | Patient | NURSING UNITRESULT READ | | LAB | | | | BACK BY:SURG | | | | | | SARAY/DEBI T @18:31, | | | | | | MYVTesting performed at | | | | | | [facility];[address] | | | | | | [address];[place] [address] | | | | + + + [...] +---------+ + + US Guided Vascular Access (10/11/2017 11:14 AM PDT) + + | Specimen | [...] + + | Khalif Palm - 02/04/2019 8:18 AM PDT This Point of Care (POC) ultrasound | | image has been reviewed andinterpreted by the physician identified as the performing | | physician in theassociated interpretation and report. | | | + + IR Inj Dialysis Circuit w Angioplasty (10/11/2017 11:14 AM PDT) + + | Specimen | + + | | + + + + + | Impressions | Performed At | + + + | 1. Occluded right subclavian and innominate venous stent | | | status post successful recanalization with prolonged angioplasty. 2. | | | Left internal jugular temporary dialysis catheter conversion to | | | tunneled dialysis catheter. PLAN: The left internal jugular | | | tunneled dialysis catheter can be used until the right arm swelling is | | | improved. Once the right arm fistula is regularly used for dialysis, | | | plan removal of the tunneled dialysis catheter. Patient is to | | | remain on lifelong anticoagulation. | | + + + + + + | Narrative | Performed At | + + + | Right arm fistulogram and tunneled dialysis catheter placement dated | | | 10/11/2017 11:26 AM CLINICAL DATA: End stage renal disease with | | | prior right subclavian/innominate recanalization with stent placement | | | with reocclusion of the stents, severe arm swelling. Temporary left | | | internal jugular dialysis catheter needing conversion to tunneled | | | dialysis catheter COMPARISON STUDIES: 10/07/2017 and 10/09/2017 | | | PRIMARY FRONT COUNTER CLERK: Jimenez Garnica MD, PhD, RPVI OPERATIONS: | | | Limited ultrasound for diagnostic purposes Right arm fistulogram | | | Right innominate/subclavian recanalization and prolonged angioplasty | | | Left internal jugular tunneled dialysis catheter placement over | | | existing temporary dialysis access site. PROCEDURE: Informed | | | consent was obtained from the patient. Continuous cardiac monitoring | | | was performed throughout the procedure. Conscious sedation was | | | provided by the nursing staff during the procedure under my | | | supervision. Sedation time: 113 minutes Medications: 200 mcg | | | Fentanyl IV, 5000 units heparin IV Antibiotic: 600 mg clindamycin IV | | | Contrast: 75 cc Isovue 250 Fluoroscopy time: 6.9 minutes Radiation | | | dose: 97 mGy air kerma Patient was sterilely prepped and draped in | | | usual fashion about the right upper extremity and the left left | | | internal jugular temporary dialysis catheter. The right brachial | | | basilic arteriovenous anastomosis is widely patent by grayscale and | | | color ultrasound , images in PACS. Site selected on the lower | | | fistula for percutaneous access. Skin was locally anesthetized with 1% | | | lidocaine a skin torey was made with 11 blade. Real-time ultrasound | | | guided Lei puncture access was obtained and the microsheath was | | | placed through which a right arm fistulogram was performed from the | | | upper arm through the chest. The microsheath was exchanged over a wire | | | for a 6 Afghan 35 cm sheath which was advanced to the level of the | | | subclavian occlusion. Patient was heparinized. The occlusion was | | | crossed with an angled glide catheter and wire. Next multiple 10 mm | | | angioplasty balloons were used for sequential and repeated prolonged | | | dilation of the 14 mm innominate and 12 mm subclavian diameter stents | | | with orthodoxy of flow. The wire was left in place until the end | | | of both procedures. Attention was then turned to replacement of a | | | left internal jugular temporary dialysis catheter to a tunneled | | | dialysis catheter to be used until right arm swelling resolved for | | | right arm fistula use. A site was selected on the upper chest for | | | subcutaneous tunnel creation. Skin was locally anesthetized with 1% | | | lidocaine a skin torey was made with 11 blade. A support wire was | | | placed through the existing left internal jugular temporary dialysis | | | catheter into the inferior vena cava for support. A 23 cm palindrome | | | catheter was then tunneled from the chest to the temporary dialysis | | | catheter site. The temporary dialysis catheter was removed over the | | | support wire and exchanged to an 816 Afghan peel-away sheath. The | | | wire was exchanged to a stiff glide wire and then backloaded over the | | | dialysis catheter. The dialysis catheter was advanced but could not | | | pass beyond the right innominate stent which protrudes slightly into | | | the superior vena cava. Therefore, the short peel-away sheath was | | | exchanged to a long peel-away sheath and a second stiff Glidewire was | | | placed through the other lumen of the dialysis catheter for additional | | | support. The catheter was then readvanced and the peel-away removed | | | and the catheter tip was positioned in the upper right atrium. The | | | catheter was aspirated and flushed demonstrated and found to have no | | | resistance. The catheter was sutured in place with 3-0 Ethilon suture | | | and then packed with 1-5000 units heparin and a dressing was | | | applied. The a 3-0 Vicryl pursestring suture was placed around the | | | right basilic vein sheath and the catheter and wire was removed | | | finding the suture with immediate hemostasis. FINDINGS: Right | | | arm color and grayscale ultrasound demonstrates a widely patent | | | brachial basilic arteriovenous anastomosis. The right arm | | | fistulogram demonstrates occlusion of the right subclavian and | | | innominate venous stents. There are numerous neck and chest venous | | | collaterals. The temporary left internal jugular dialysis catheter tip | | | is at the cavoatrial junction just beyond the venous stents. | | | Following prolonged multiple angioplasties of the right subclavian and | | | innominate venous stents, there is orthodoxy of vigorous flow with | | | no residual stenosis. There is resolution of of opacification of the | | | venous collaterals. Following replacement over the temporary | | | dialysis catheter with the tunneled dialysis catheter, the catheter | | | tip states at the upper right atrium. | | + + + + + | Procedure Note | + + | Néstor, Rad Conversion - 02/04/2019 8:18 AM PDT Right arm fistulogram and tunneled | | dialysis catheter placement dated 10/11/2017 11:26 AM CLINICAL DATA: End stage renal | | disease with prior right subclavian/innominate recanalization with stent placement with | | reocclusion of the stents, severe arm swelling. Temporary left internal jugular dialysis | | catheter needing conversion to tunneled dialysis catheter COMPARISON STUDIES: 10/07/2017 | | and 10/09/2017 PRIMARY FRONT COUNTER CLERK: Jimenez Garnica MD, PhD, RPVI OPERATIONS:Limited | | ultrasound for diagnostic purposesRight arm fistulogramRight innominate/subclavian | | recanalization and prolonged angioplastyLeft internal jugular tunneled dialysis catheter | | placement over existing temporary dialysis access site. PROCEDURE: Informed consent was | | obtained from the patient. Continuous cardiac monitoring was performed throughout the | | procedure. Conscious sedation was provided by the nursing staff during the procedure | | under my supervision. Sedation time: 113 minutesMedications: 200 mcg Fentanyl IV, 5000 | | units heparin IVAntibiotic: 600 mg clindamycin IVContrast: 75 cc Isovue 250Fluoroscopy | | time: 6.9 minutesRadiation dose: 97 mGy air kerma Patient was sterilely prepped and | | draped in usual fashion about the right upper extremity and the left left internal | | jugular temporary dialysis catheter. The right brachial basilic arteriovenous | | anastomosis is widely patent by grayscale and color ultrasound , images in PACS. Site | | selected on the lower fistula for percutaneous access. Skin was locally anesthetized | | with 1% lidocaine a skin torey was made with 11 blade. Real-time ultrasound guided | | Lei puncture access was obtained and the microsheath was placed through which a | | right arm fistulogram was performed from the upper arm through the chest. The | | microsheath was exchanged over a wire for a 6 Afghan 35 cm sheath which was advanced to | | the level of the subclavian occlusion. Patient was heparinized. The occlusion was | | crossed with an angled glide catheter and wire. Next multiple 10 mm angioplasty balloons | | were used for sequential and repeated prolonged dilation of the 14 mm innominate and 12 | | mm subclavian diameter stents with orthodoxy of flow. The wire was left in place | | until the end of both procedures. Attention was then turned to replacement of a left | | internal jugular temporary dialysis catheter to a tunneled dialysis catheter to be used | | until right arm swelling resolved for right arm fistula use. A site was selected on the | | upper chest for subcutaneous tunnel creation. Skin was locally anesthetized with 1% | | lidocaine a skin torey was made with 11 blade. A support wire was placed through the | | existing left internal jugular temporary dialysis catheter into the inferior vena cava | | for support. A 23 cm palindrome catheter was then tunneled from the chest to the | | temporary dialysis catheter site. The temporary dialysis catheter was removed over the | | support wire and exchanged to an 816 Afghan peel-away sheath. The wire was exchanged to | | a stiff glide wire and then backloaded over the dialysis catheter. The dialysis catheter | | was advanced but could not pass beyond the right innominate stent which protrudes | | slightly into the superior vena cava. Therefore, the short peel-away sheath was | | exchanged to a long peel-away sheath and a second stiff Glidewire was placed through the | | other lumen of the dialysis catheter for additional support. The catheter was then | | readvanced and the peel-away removed and the catheter tip was positioned in the upper | | right atrium. The catheter was aspirated and flushed demonstrated and found to have no | | resistance. The catheter was sutured in place with 3-0 Ethilon suture and then packed | | with 1-5000 units heparin and a dressing was applied. The a 3-0 Vicryl pursestring | | suture was placed around the right basilic vein sheath and the catheter and wire was | | removed finding the suture with immediate hemostasis. FINDINGS: Right arm color and | | grayscale ultrasound demonstrates a widely patent brachial basilic arteriovenous | | anastomosis. The right arm fistulogram demonstrates occlusion of the right subclavian | | and innominate venous stents. There are numerous neck and chest venous collaterals. The | | temporary left internal jugular dialysis catheter tip is at the cavoatrial junction just | | beyond the venous stents. Following prolonged multiple angioplasties of the right | | subclavian and innominate venous stents, there is orthodoxy of vigorous flow with no | | residual stenosis. There is resolution of of opacification of the venous collaterals. | | Following replacement over the temporary dialysis catheter with the tunneled dialysis | | catheter, the catheter tip states at the upper right atrium. IMPRESSION: 1. Occluded | | right subclavian and innominate venous stent status post successful recanalization with | | prolonged angioplasty.2. Left internal jugular temporary dialysis catheter conversion to | | tunneled dialysis catheter. PLAN: The left internal jugular tunneled dialysis catheter | | can be used until the right arm swelling is improved. Once the right arm fistula is | | regularly used for dialysis, plan removal of the tunneled dialysis catheter. Patient is | | to remain on lifelong anticoagulation. Electronically signed by Jimenez Garnica MD on | | 10/11/2017 11:29 AM | |IMPRESSION: | | | | | |1. Occluded right subclavian and innominate venous stent status post successful recanalizat ion with prolonged angioplasty. | |2. Left internal jugular temporary dialysis catheter conversion to tunneled dialysis cathet er. | | | |PLAN: | | | |The left internal jugular tunneled dialysis catheter can be used until the right arm swelli ng is improved. Once the right arm fistula is regularly used for dialysis, plan removal of t he tunneled dialysis catheter. | | | |Patient is to remain on lifelong anticoagulation. | | | | | + + IR Placement Tunneled CV Cath (10/11/2017 11:14 AM PDT) + + | Specimen | + + | | + + + + + | Impressions | Performed At | + + + | 1. Occluded right subclavian and innominate venous stent | | | status post successful recanalization with prolonged angioplasty. 2. | | | Left internal jugular temporary dialysis catheter conversion to | | | tunneled dialysis catheter. PLAN: The left internal jugular | | | tunneled dialysis catheter can be used until the right arm swelling is | | | improved. Once the right arm fistula is regularly used for dialysis, | | | plan removal of the tunneled dialysis catheter. Patient is to | | | remain on lifelong anticoagulation. | | + + + + + + | Narrative | Performed At | + + + | Right arm fistulogram and tunneled dialysis catheter placement dated | | | 10/11/2017 11:26 AM CLINICAL DATA: End stage renal disease with | | | prior right subclavian/innominate recanalization with stent placement | | | with reocclusion of the stents, severe arm swelling. Temporary left | | | internal jugular dialysis catheter needing conversion to tunneled | | | dialysis catheter COMPARISON STUDIES: 10/07/2017 and 10/09/2017 | | | PRIMARY FRONT COUNTER CLERK: Jimenez Garnica MD, PhD, RPVI OPERATIONS: | | | Limited ultrasound for diagnostic purposes Right arm fistulogram | | | Right innominate/subclavian recanalization and prolonged angioplasty | | | Left internal jugular tunneled dialysis catheter placement over | | | existing temporary dialysis access site. PROCEDURE: Informed | | | consent was obtained from the patient. Continuous cardiac monitoring | | | was performed throughout the procedure. Conscious sedation was | | | provided by the nursing staff during the procedure under my | | | supervision. Sedation time: 113 minutes Medications: 200 mcg | | | Fentanyl IV, 5000 units heparin IV Antibiotic: 600 mg clindamycin IV | | | Contrast: 75 cc Isovue 250 Fluoroscopy time: 6.9 minutes Radiation | | | dose: 97 mGy air kerma Patient was sterilely prepped and draped in | | | usual fashion about the right upper extremity and the left left | | | internal jugular temporary dialysis catheter. The right brachial | | | basilic arteriovenous anastomosis is widely patent by grayscale and | | | color ultrasound , images in PACS. Site selected on the lower | | | fistula for percutaneous access. Skin was locally anesthetized with 1% | | | lidocaine a skin torey was made with 11 blade. Real-time ultrasound | | | guided Lei puncture access was obtained and the microsheath was | | | placed through which a right arm fistulogram was performed from the | | | upper arm through the chest. The microsheath was exchanged over a wire | | | for a 6 Afghan 35 cm sheath which was advanced to the level of the | | | subclavian occlusion. Patient was heparinized. The occlusion was | | | crossed with an angled glide catheter and wire. Next multiple 10 mm | | | angioplasty balloons were used for sequential and repeated prolonged | | | dilation of the 14 mm innominate and 12 mm subclavian diameter stents | | | with orthodoxy of flow. The wire was left in place until the end | | | of both procedures. Attention was then turned to replacement of a | | | left internal jugular temporary dialysis catheter to a tunneled | | | dialysis catheter to be used until right arm swelling resolved for | | | right arm fistula use. A site was selected on the upper chest for | | | subcutaneous tunnel creation. Skin was locally anesthetized with 1% | | | lidocaine a skin torey was made with 11 blade. A support wire was | | | placed through the existing left internal jugular temporary dialysis | | | catheter into the inferior vena cava for support. A 23 cm palindrome | | | catheter was then tunneled from the chest to the temporary dialysis | | | catheter site. The temporary dialysis catheter was removed over the | | | support wire and exchanged to an 816 Afghan peel-away sheath. The | | | wire was exchanged to a stiff glide wire and then backloaded over the | | | dialysis catheter. The dialysis catheter was advanced but could not | | | pass beyond the right innominate stent which protrudes slightly into | | | the superior vena cava. Therefore, the short peel-away sheath was | | | exchanged to a long peel-away sheath and a second stiff Glidewire was | | | placed through the other lumen of the dialysis catheter for additional | | | support. The catheter was then readvanced and the peel-away removed | | | and the catheter tip was positioned in the upper right atrium. The | | | catheter was aspirated and flushed demonstrated and found to have no | | | resistance. The catheter was sutured in place with 3-0 Ethilon suture | | | and then packed with 1-5000 units heparin and a dressing was | | | applied. The a 3-0 Vicryl pursestring suture was placed around the | | | right basilic vein sheath and the catheter and wire was removed | | | finding the suture with immediate hemostasis. FINDINGS: Right | | | arm color and grayscale ultrasound demonstrates a widely patent | | | brachial basilic arteriovenous anastomosis. The right arm | | | fistulogram demonstrates occlusion of the right subclavian and | | | innominate venous stents. There are numerous neck and chest venous | | | collaterals. The temporary left internal jugular dialysis catheter tip | | | is at the cavoatrial junction just beyond the venous stents. | | | Following prolonged multiple angioplasties of the right subclavian and | | | innominate venous stents, there is orthodoxy of vigorous flow with | | | no residual stenosis. There is resolution of of opacification of the | | | venous collaterals. Following replacement over the temporary | | | dialysis catheter with the tunneled dialysis catheter, the catheter | | | tip states at the upper right atrium. | | + + + + + | Procedure Note | + + | Néstor, Rad Conversion - 02/04/2019 8:18 AM PDT Right arm fistulogram and tunneled | | dialysis catheter placement dated 10/11/2017 11:26 AM CLINICAL DATA: End stage renal | | disease with prior right subclavian/innominate recanalization with stent placement with | | reocclusion of the stents, severe arm swelling. Temporary left internal jugular dialysis | | catheter needing conversion to tunneled dialysis catheter COMPARISON STUDIES: 10/07/2017 | | and 10/09/2017 PRIMARY FRONT COUNTER CLERK: Jimenez Garnica MD, PhD, RPVI OPERATIONS:Limited | | ultrasound for diagnostic purposesRight arm fistulogramRight innominate/subclavian | | recanalization and prolonged angioplastyLeft internal jugular tunneled dialysis catheter | | placement over existing temporary dialysis access site. PROCEDURE: Informed consent was | | obtained from the patient. Continuous cardiac monitoring was performed throughout the | | procedure. Conscious sedation was provided by the nursing staff during the procedure | | under my supervision. Sedation time: 113 minutesMedications: 200 mcg Fentanyl IV, 5000 | | units heparin IVAntibiotic: 600 mg clindamycin IVContrast: 75 cc Isovue 250Fluoroscopy | | time: 6.9 minutesRadiation dose: 97 mGy air kerma Patient was sterilely prepped and | | draped in usual fashion about the right upper extremity and the left left internal | | jugular temporary dialysis catheter. The right brachial basilic arteriovenous | | anastomosis is widely patent by grayscale and color ultrasound , images in PACS. Site | | selected on the lower fistula for percutaneous access. Skin was locally anesthetized | | with 1% lidocaine a skin torey was made with 11 blade. Real-time ultrasound guided | | Lei puncture access was obtained and the microsheath was placed through which a | | right arm fistulogram was performed from the upper arm through the chest. The | | microsheath was exchanged over a wire for a 6 Afghan 35 cm sheath which was advanced to | | the level of the subclavian occlusion. Patient was heparinized. The occlusion was | | crossed with an angled glide catheter and wire. Next multiple 10 mm angioplasty balloons | | were used for sequential and repeated prolonged dilation of the 14 mm innominate and 12 | | mm subclavian diameter stents with orthodoxy of flow. The wire was left in place | | until the end of both procedures. Attention was then turned to replacement of a left | | internal jugular temporary dialysis catheter to a tunneled dialysis catheter to be used | | until right arm swelling resolved for right arm fistula use. A site was selected on the | | upper chest for subcutaneous tunnel creation. Skin was locally anesthetized with 1% | | lidocaine a skin torey was made with 11 blade. A support wire was placed through the | | existing left internal jugular temporary dialysis catheter into the inferior vena cava | | for support. A 23 cm palindrome catheter was then tunneled from the chest to the | | temporary dialysis catheter site. The temporary dialysis catheter was removed over the | | support wire and exchanged to an 816 Afghan peel-away sheath. The wire was exchanged to | | a stiff glide wire and then backloaded over the dialysis catheter. The dialysis catheter | | was advanced but could not pass beyond the right innominate stent which protrudes | | slightly into the superior vena cava. Therefore, the short peel-away sheath was | | exchanged to a long peel-away sheath and a second stiff Glidewire was placed through the | | other lumen of the dialysis catheter for additional support. The catheter was then | | readvanced and the peel-away removed and the catheter tip was positioned in the upper | | right atrium. The catheter was aspirated and flushed demonstrated and found to have no | | resistance. The catheter was sutured in place with 3-0 Ethilon suture and then packed | | with 1-5000 units heparin and a dressing was applied. The a 3-0 Vicryl pursestring | | suture was placed around the right basilic vein sheath and the catheter and wire was | | removed finding the suture with immediate hemostasis. FINDINGS: Right arm color and | | grayscale ultrasound demonstrates a widely patent brachial basilic arteriovenous | | anastomosis. The right arm fistulogram demonstrates occlusion of the right subclavian | | and innominate venous stents. There are numerous neck and chest venous collaterals. The | | temporary left internal jugular dialysis catheter tip is at the cavoatrial junction just | | beyond the venous stents. Following prolonged multiple angioplasties of the right | | subclavian and innominate venous stents, there is orthodoxy of vigorous flow with no | | residual stenosis. There is resolution of of opacification of the venous collaterals. | | Following replacement over the temporary dialysis catheter with the tunneled dialysis | | catheter, the catheter tip states at the upper right atrium. IMPRESSION: 1. Occluded | | right subclavian and innominate venous stent status post successful recanalization with | | prolonged angioplasty.2. Left internal jugular temporary dialysis catheter conversion to | | tunneled dialysis catheter. PLAN: The left internal jugular tunneled dialysis catheter | | can be used until the right arm swelling is improved. Once the right arm fistula is | | regularly used for dialysis, plan removal of the tunneled dialysis catheter. Patient is | | to remain on lifelong anticoagulation. Electronically signed by Jimenez Garnica MD on | | 10/11/2017 11:29 AM | |IMPRESSION: | | | | | |1. Occluded right subclavian and innominate venous stent status post successful recanalizat ion with prolonged angioplasty. | |2. Left internal jugular temporary dialysis catheter conversion to tunneled dialysis cathet er. | | | |PLAN: | | | |The left internal jugular tunneled dialysis catheter can be used until the right arm swelli ng is improved. Once the right arm fistula is regularly used for dialysis, plan removal of t he tunneled dialysis catheter. | | | |Patient is to remain on lifelong anticoagulation. | | | | | + + POC Glucose (10/11/2017 5:37 AM PDT) + + + + + + | Component | Value | Ref Range | Performed | Pathologist | | | | | At | Signature | + + + + + + | Glucose, | 84Comment: Testing | 65 - 99 mg/dL | EXTERNAL | | | Fingerstick | performed at [facility];[id number] | | LAB | | | | [address];[place], [place] | | | | | | [address] | | | | + + + + + + + + | Specimen | + + | | + + + +---------+ + + | Performing | Address | City/State/Zipcode | Phone Number | | Organization | | | | + +---------+ + + | EXTERNAL LAB | | | | + +---------+ + + PTT (10/11/2017 5:30 AM PDT) + + + + + + | Component | Value | Ref Range | Performed | Pathologist | | | | | At | Signature | + + + + + + | aPTT, | 54 (H)Comment: Testing | 23 - 32 seconds | EXTERNAL | | | Patient | performed at [facility];[address] | | LAB | | | | [address];[place] | | | | | | [address] | | | | + + + [...] + +---------+ + + External Lab: CBC (10/11/2017 5:28 AM PDT) + + + + + + | Component | Value | Ref Range | Performed | Pathologist | | | | | At | Signature | + + + + + + | WBC | 5.55 | 3.80 - 11.00 | EXTERNAL | | | | | K/uL | LAB | | + + + + + + | RED CELL | 3.48 (L) | 4.20 - 5.70 | EXTERNAL | | | COUNT | | M/uL | LAB | | + + + + + + | Hgb | 10.1 (L) | 13.2 - 17.0 | EXTERNAL | | | | | g/dL | LAB | | + + + + + + | Hematocrit, | 30.6 (L) | 39.0 - 50.0 % | EXTERNAL | | | POC | | | LAB | | + + + + + + | MCV | 87.8 | 80.0 - 100.0 fl | EXTERNAL | | | | | | LAB | | + + + + + + | MCH | 28.9 | 27.0 - 34.0 pg | EXTERNAL | | | | | | LAB | | + + + + + + | MCHC | 32.9 | 32.0 - 35.5 | EXTERNAL | | | | | g/dL | LAB | | + + + + + + | RDW-CV | 54.3 (H) | 37 - 53 fl | EXTERNAL | | | | | | LAB | | + + + + + + | Platelet | 165 | 150 - 400 K/uL | EXTERNAL | | | Count | | | LAB | | | Plasma | | | | | + + + + + + | MPV | 7.0 | fl | EXTERNAL | | | | | | LAB | | + + + + + + | Differentia | AUTOMATED | | EXTERNAL | | | l Type | | | LAB | | + + + + + + | % Segmented | 54.64 | % | EXTERNAL | | | | | | LAB | | | Neutrophils | | | | | + + + + + + | % | 13.67 | % | EXTERNAL | | | Lymphocytes | | | LAB | | + + + + + + | % Monocytes | 13.07 | % | EXTERNAL | | | | | | LAB | | + + + + + + | % | 18.09 | % | EXTERNAL | | | Eosinophils | | | LAB | | + + + + + + | % Basophils | 0.53 | % | EXTERNAL | | | | | | LAB | | + + + + + + | Absolute | 3.03 | 1.90 - 7.40 | EXTERNAL | | | Segmented | | K/uL | LAB | | | Neutrophils | | | | | + + + + + + | Absolute | 0.76 (L) | 1.00 - 3.90 | EXTERNAL | | | Lymphocytes | | K/uL | LAB | | + + + + + + | Absolute | 0.73 | 0.00 - 0.80 | EXTERNAL | | | Monocytes | | K/uL | LAB | | + + + + + + | Absolute | 1.00 (H) | 0.00 - 0.50 | EXTERNAL | | | Eosinophils | | K/uL | LAB | | + + + + + + | Absolute | 0.03Comment: Testing | 0.00 - 0.10 | EXTERNAL | | | Basophils | performed at [facility], [address] | K/uL | LAB | | | | [address], | | | | | | [place] [address] | | | | + + + + + + + + | Specimen | + + | Blood specimen | | (specimen) | + + + +---------+ + + | Performing | Address | City/State/Zipcode | Phone Number | | Organization | | | | + +---------+ + + | EXTERNAL LAB | | | | + +---------+ + + Phosphorus (10/11/2017 5:28 AM PDT) + + + + + + | Component | Value | Ref Range | Performed | Pathologist | | | | | At | Signature | + + + + + + | PHOSPHORUS | 4.8Comment: Testing | 2.3 - 4.8 mg/dL | EXTERNAL | | | | performed at [facility], [address] | | LAB | | | | [address], | | | | | | [place] [address] | | | | + + + + + + + + | Specimen | + + | Blood specimen | | (specimen) | + + + +---------+ + + | Performing | Address | City/State/Zipcode | Phone Number | | Organization | | | | + +---------+ + + | EXTERNAL LAB | | | | + +---------+ + + Magnesium (10/11/2017 5:28 AM PDT) + + + + + + | Component | Value | Ref Range | Performed | Pathologist | | | | | At | Signature | + + + + + + | Magnesium | 2.2Comment: Testing | 1.7 - 2.4 mg/dL | EXTERNAL | | | | performed at [facility], [address] | | LAB | | | | [address], | | | | | | [place] [address] | | | | + + + [...] + +---------+ + + Comprehensive Metabolic Panel (10/11/2017 5:28 AM PDT) + + + + + + | Component | Value | Ref Range | Performed | Pathologist | | | | | At | Signature | + + + + + + | Na | 135 | 135 - 145 | EXTERNAL | | | | | mmol/L | LAB | | + + + + + + | K | 4.5 | 3.5 - 4.9 | EXTERNAL | | | | | mmol/L | LAB | | + + + + + + | Cl | 99 | 99 - 109 mmol/L | EXTERNAL | | | | | | LAB | | + + + + + + | CO2 | 25 | 23 - 32 mmol/L | EXTERNAL | | | | | | LAB | | + + + + + + | Anion Gap | 16 | 5 - 20 mmol/L | EXTERNAL | | | | | | LAB | | + + + + + + | Glucose, | 79 | 65 - 99 mg/dL | EXTERNAL | | | Fasting | | | LAB | | + + + + + + | BUN | 27 (H) | 8 - 25 mg/dL | EXTERNAL | | | | | | LAB | | + + + + + + | Creatinine | 7.2 (H) | 0.70 - 1.30 | EXTERNAL | | | | | mg/dL | LAB | | + + + + + + | BUN/Creatin | 4 | | EXTERNAL | | | ine Ratio | | | LAB | | + + + + + + | Calcium | 8.4 (L) | 8.5 - 10.5 | EXTERNAL | | | | | mg/dL | LAB | | + + + + + + | Protein, | 7.0 | 6.3 - 8.2 g/dL | EXTERNAL | | | Total | | | LAB | | + + + + + + | Albumin | 2.8 (L) | 3.6 - 5.0 g/dL | EXTERNAL | | | | | | LAB | | + + + + + + | Globulin | 4.2 | 1.3 - 4.9 g/dL | EXTERNAL | | | | | | LAB | | + + + + + + | A/G Ratio | 0.7 (L) | 1.0 - 2.4 | EXTERNAL | | | | | | LAB | | + + + + + + | Bilirubin | 0.7 | 0.1 - 1.5 mg/dL | EXTERNAL | | | Total | | | LAB | | + + + + + + | ALP, | 72 | 35 - 115 U/L | EXTERNAL | | | External | | | LAB | | + + + + + + | AST | 25 | 10 - 45 U/L | EXTERNAL | | | | | | LAB | | + + + + + + | ALT | 17 | 10 - 65 U/L | EXTERNAL | | | | | [...] | | | | | | at [facility], [address] | | | | | [address], | | | | | | [place] [address] | | | | + + + + + + + + | Specimen | + + | Blood specimen | | (specimen) | + + + +---------+ + + | Performing | Address | City/State/Zipcode | Phone Number | | Organization | | | | + +---------+ + + | EXTERNAL LAB | | | | + +---------+ + + PTT (10/10/2017 9:56 PM PDT) + + + + + + | Component | Value | Ref Range | Performed | Pathologist | | | | | At | Signature | + + + + + + | aPTT, | 76 ()Comment: CALLED | 23 - 32 seconds | EXTERNAL | | | Patient | TO ALVIN MOSQUERA AT | | LAB | | | | 2250 BY CD, READ | | | | | | BACKTesting performed at | | | | | | [facility];[address] | | | | | | [facility];[place] [address] | | | | + + + + + + + + | Specimen | + + | Blood specimen | | (specimen) | + + + +---------+ + + | Performing | Address | City/State/Zipcode | Phone Number | | Organization | | | | + +---------+ + + | EXTERNAL LAB | | | | + +---------+ + + POC Glucose (10/10/2017 9:29 PM PDT) + + + + + + | Component | Value | Ref Range | Performed | Pathologist | | | | | At | Signature | + + + + + + | Glucose, | 140 (H)Comment: Testing | 65 - 99 mg/dL | EXTERNAL | | | Fingerstick | performed at [facility];[address] | | LAB | | | | [address];[place], [place] | | | | | | [address] | | | | + + + + + + + + | Specimen | + + | | + + + +---------+ + + | Performing | Address | City/State/Zipcode | Phone Number | | Organization | | | | + +---------+ + + | EXTERNAL LAB | | | | + +---------+ + + POC Glucose (10/10/2017 4:28 PM PDT) + + + + + + | Component | Value | Ref Range | Performed | Pathologist | | | | | At | Signature | + + + + + + | Glucose, | 133 (H)Comment: Testing | 65 - 99 mg/dL | EXTERNAL | | | Fingerstick | performed at [facility];[address] | | LAB | | | | [address];[place] | | | | | | [address] | | | | + + + + + + + + | Specimen | + + | | + + + +---------+ + + | Performing | Address | City/State/Zipcode | Phone Number | | Organization | | | | + +---------+ + + | EXTERNAL LAB | | | | + +---------+ + + PTT (10/10/2017 2:19 PM PDT) + + + + + + | Component | Value | Ref Range | Performed | Pathologist | | | | | At | Signature | + + + + + + | aPTT, | 73 (H)Comment: Testing | 23 - 32 seconds | EXTERNAL | | | Patient | performed at [facility];[address] | | LAB | | | | [address];[place] | | | | | | [address] | | | | + + + + + + + + | Specimen | + + | Blood specimen | | (specimen) | + + + +---------+ + + | Performing | Address | City/State/Zipcode | Phone Number | | Organization | | | | + +---------+ + + | EXTERNAL LAB | | | | + +---------+ + + POC Glucose (10/10/2017 11:28 AM PDT) + + + + + + | Component | Value | Ref Range | Performed | Pathologist | | | | | At | Signature | + + + + + + | Glucose, | 168 (H)Comment: Testing | 65 - 99 mg/dL | EXTERNAL | | | Fingerstick | performed at [facility];[address] | | LAB | | | [address];[place], [place] | | | | | | [address] | | | | + + + + + + + + | Specimen | + + | | + + + +---------+ + + | Performing | Address | City/State/Zipcode | Phone Number | | Organization | | | | + +---------+ + + | EXTERNAL LAB | | | | + +---------+ + + PTT (10/10/2017 6:16 AM PDT) + + + + + + | Component | Value | Ref Range | Performed | Pathologist | | | | | At | Signature | + + + + + + | aPTT, | 107 ()Comment: PTT | 23 - 32 seconds | EXTERNAL | | | Patient | PHONED TO DEMETRI MARTINEZ | | LAB | | | | S AT 0705 BY LJREAD BACK | | | | | | RESULTS VERIFIEDTesting | | | | | | performed at [facility];[address] | | | | | | [address];[place] | | | | | | [address] | | | | + + + [...] + +---------+ + + External Lab: CBC (10/10/2017 6:16 AM PDT) + + + + + + | Component | Value | Ref Range | Performed | Pathologist | | | | | At | Signature | + + + + + + | WBC | 5.36 | 3.80 - 11.00 | EXTERNAL | | | | | K/uL | LAB | | + + + + + + | RED CELL | 3.56 (L) | 4.20 - 5.70 | EXTERNAL | | | COUNT | | M/uL | LAB | | + + + + + + | Hgb | 10.4 (L) | 13.2 - 17.0 | EXTERNAL | | | | | g/dL | LAB | | + + + + + + | Hematocrit, | 30.8 (L) | 39.0 - 50.0 % | EXTERNAL | | | POC | | | LAB | | + + + + + + | MCV | 86.7 | 80.0 - 100.0 fl | EXTERNAL | | | | | | LAB | | + + + + + + | MCH | 29.3 | 27.0 - 34.0 pg | EXTERNAL | | | | | | LAB | | + + + + + + | MCHC | 33.8 | 32.0 - 35.5 | EXTERNAL | | | | | g/dL | LAB | | + + + + + + | RDW-CV | 52.1 | 37 - 53 fl | EXTERNAL | | | | | | LAB | | + + + + + + | Platelet | 200 | 150 - 400 K/uL | EXTERNAL | | | Count | | | LAB | | | Plasma | | | | | + + + + + + | MPV | 6.9 | fl | EXTERNAL | | | | | | LAB | | + + + + + + | Differentia | AUTOMATED | | EXTERNAL | | | l Type | | | LAB | | + + + + + + | % Segmented | 57.77 | % | EXTERNAL | | | | | | LAB | | | Neutrophils | | | | | + + + + + + | % | 10.44 | % | EXTERNAL | | | Lymphocytes | | | LAB | | + + + + + + | % Monocytes | 13.92 | % | EXTERNAL | | | | | | LAB | | + + + + + + | % | 17.34 | % | EXTERNAL | | | Eosinophils | | | LAB | | + + + + + + | % Basophils | 0.53 | % | EXTERNAL | | | | | | LAB | | + + + + + + | Absolute | 3.10 | 1.90 - 7.40 | EXTERNAL | | | Segmented | | K/uL | LAB | | | Neutrophils | | | | | + + + + + + | Absolute | 0.56 (L) | 1.00 - 3.90 | EXTERNAL | | | Lymphocytes | | K/uL | LAB | | + + + + + + | Absolute | 0.75 | 0.00 - 0.80 | EXTERNAL | | | Monocytes | | K/uL | LAB | | + + + + + + | Absolute | 0.93 (H) | 0.00 - 0.50 | EXTERNAL | | | Eosinophils | | K/uL | LAB | | + + + + + + | Absolute | 0.03Comment: Testing | 0.00 - 0.10 | EXTERNAL | | | Basophils | performed at [facility], [address] | K/uL | LAB | | | | [address], | | | | | | [place] [address] | | | | + + + + + + + + | Specimen | + + | Blood specimen | | (specimen) | + + + +---------+ + + | Performing | Address | City/State/Zipcode | Phone Number | | Organization | | | | + +---------+ + + | EXTERNAL LAB | | | | + +---------+ + + Phosphorus (10/10/2017 6:16 AM PDT) + + + + + + | Component | Value | Ref Range | Performed | Pathologist | | | | | At | Signature | + + + + + + | PHOSPHORUS | 4.8Comment: Testing | 2.3 - 4.8 mg/dL | EXTERNAL | | | | performed at [facility], [address] | | LAB | | | | [address], | | | | | | [place] [address] | | | | + + + + + + + + | Specimen | + + | Blood specimen | | (specimen) | + + + +---------+ + + | Performing | Address | City/State/Zipcode | Phone Number | | Organization | | | | + +---------+ + + | EXTERNAL LAB | | | | + +---------+ + + Magnesium (10/10/2017 6:16 AM PDT) + + + + + + | Component | Value | Ref Range | Performed | Pathologist | | | | | At | Signature | + + + + + + | Magnesium | 2.2Comment: Testing | 1.7 - 2.4 mg/dL | EXTERNAL | | | | performed at [facility], [address] | | LAB | | | | [address], | | | | | | [place] [address] | | | | + + + [...] + +---------+ + + Comprehensive Metabolic Panel (10/10/2017 6:16 AM PDT) + + + + + + | Component | Value | Ref Range | Performed | Pathologist | | | | | At | Signature | + + + + + + | Na | 134 (L) | 135 - 145 | EXTERNAL | | | | | mmol/L | LAB | | + + + + + + | K | 4.2 | 3.5 - 4.9 | EXTERNAL | | | | | mmol/L | LAB | | + + + + + + | Cl | 96 (L) | 99 - 109 mmol/L | EXTERNAL | | | | | | LAB | | + + + + + + | CO2 | 27 | 23 - 32 mmol/L | EXTERNAL | | | | | | LAB | | + + + + + + | Anion Gap | 15 | 5 - 20 mmol/L | EXTERNAL | | | | | | LAB | | + + + + + + | Glucose, | 115 (H) | 65 - 99 mg/dL | EXTERNAL | | | Fasting | | | LAB | | + + + + + + | BUN | 35 (H) | 8 - 25 mg/dL | EXTERNAL | | | | | | LAB | | + + + + + + | Creatinine | 7.9 (H) | 0.70 - 1.30 | EXTERNAL | | | | | mg/dL | LAB | | + + + + + + | BUN/Creatin | 4 | | EXTERNAL | | | ine Ratio | | | LAB | | + + + + + + | Calcium | 7.9 (L) | 8.5 - 10.5 | EXTERNAL | | | | | mg/dL | LAB | | + + + + + + | Protein, | 6.9 | 6.3 - 8.2 g/dL | EXTERNAL | | | Total | | | LAB | | + + + + + + | Albumin | 2.8 (L) | 3.6 - 5.0 g/dL | EXTERNAL | | | | | | LAB | | + + + + + + | Globulin | 4.1 | 1.3 - 4.9 g/dL | EXTERNAL | | | | | | LAB | | + + + + + + | A/G Ratio | 0.7 (L) | 1.0 - 2.4 | EXTERNAL | | | | | | LAB | | + + + + + + | Bilirubin | 0.7 | 0.1 - 1.5 mg/dL | EXTERNAL | | | Total | | | LAB | | + + + + + + | ALP, | 78 | 35 - 115 U/L | EXTERNAL | | | External | | | LAB | | + + + + + + | AST | 22 | 10 - 45 U/L | EXTERNAL | | | | | | LAB | | + + + + + + | ALT | 14 | 10 - 65 U/L | EXTERNAL | | | | | [...] [address] | | | | | | [facility], | | | | | | [place] [address] | | | | + + + + + + + + | Specimen | + + | Blood specimen | | (specimen) | + + + +---------+ + + | Performing | Address | City/State/Zipcode | Phone Number | | Organization | | | | + +---------+ + + | EXTERNAL LAB | | | | + +---------+ + + POC Glucose (10/10/2017 5:45 AM PDT) + + + + + + | Component | Value | Ref Range | Performed | Pathologist | | | | | At | Signature | + + + + + + | Glucose, | 141 (H)Comment: Testing | 65 - 99 mg/dL | EXTERNAL | | | Fingerstick | performed at [facility];[address] | | LAB | | | | [address];[place] | | | | | | [address] | | | | + + + + + + + + | Specimen | + + | | + + + +---------+ + + | Performing | Address | City/State/Zipcode | Phone Number | | Organization | | | | + +---------+ + + | EXTERNAL LAB | | | | + +---------+ + + VAS Upper Extremity Venous Right (10/09/2017 9:50 PM PDT) + + | Specimen | + + | | + + + + + | Impressions | Performed At | + + + | 1. No evidence of deep venous thrombosis , right upper extremity | | | 2. What may be a sessile thin seroma or other fluid collection the | | | antecubital fossa 3. 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 No prior | | | similar study available for comparison. This is a true duplex | | | examination with generation and interrogation of Doppler spectral | | | analysis, color flow and investigation waveforms. Where | | | investigated, these findings were unremarkable and supportive of the | | | conclusions of the attached report. FINDINGS: Normal | | | compression, color flow, respiratory variation and mechanical | | | augmentation at all interrogated points demonstrated.. Duplex | | | examination demonstrating normal color flow, Doppler spectral analysis | | | as expected for the venous structures here. Incidental findings a | | | nonorganized low density fluid collection in the region of the distal | | | bicep extending to the medial tibial fossa could be a seroma. 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 There is some | | | limitations due to edema | | + + + + ---------+ | Procedure Note | + ---------+ | Néstor, Rad Conversion - 02/04/2019 8:18 AM PDT HISTORY: 52 -year-old male with pain | | and swelling TECHNIQUE: Ultrasound of the right upper extremity deep venous systems. No | | prior similar study available for comparison. This is a true duplex examination with | | generation and interrogation of Doppler spectral analysis, color flow and investigation | | waveforms. Where investigated, these findings were unremarkable and supportive of the | | conclusions of the attached report. FINDINGS: Normal compression, color flow, | | respiratory variation and mechanical augmentation at all interrogated points | | demonstrated.. Duplex examination demonstrating normal color flow, Doppler spectral | | analysis as expected for the venous structures here. Incidental findings a nonorganized | | low density fluid collection in the region of the distal bicep extending to the medial | | tibial fossa could be a seroma. No report of trauma Vascular fistula about the humerus | | noted also, the somewhat distended vessel over a centimeter. There is some limitations | | due to edema IMPRESSION: 1. No evidence of deep venous thrombosis , right upper | | extremity 2. What may be a sessile thin seroma or other fluid collection the antecubital | | fossa 3. Somewhat aneurysmally dilated fistula, with a luminal diameter measuring no | | well over centimeter | | PM | | | |IMPRESSION: | | | |1. No evidence of deep venous thrombosis , right upper extremity | | | |2. What may be a sessile thin seroma or other fluid collection the antecubital fossa | | | |3. Somewhat aneurysmally dilated fistula, with a luminal diameter measuring no well over ce ntimeter | | | | | + ---------+ POC Glucose (10/09/2017 9:39 PM PDT) + + + + + + | Component | Value | Ref Range | Performed | Pathologist | | | | | At | Signature | + + + + + + | Glucose, | 139 (H)Comment: Testing | 65 - 99 mg/dL | EXTERNAL | | | Fingerstick | performed at [facility];[address] | | LAB | | | | [address];[place], [place] | | | | | | [address] | | | | + + + + + + + + | Specimen | + + | | + + + +---------+ + + | Performing | Address | City/State/Zipcode | Phone Number | | Organization | | | | + +---------+ + + | EXTERNAL LAB | | | | + +---------+ + + Culture, Blood, 2nd Specimen (10/09/2017 5:40 PM PDT) + + | Specimen | + + | Blood specimen | | (specimen) | + + + + + | Narrative | Performed At | + + + | Specimen Description BLOOD SPECIAL | EXTERNAL LAB | | REQUESTS SITE NOT GIVEN CULTURE | | | NO GROWTH 6 DAYS | | + + + + +---------+ + + | Performing | Address | City/State/Zipcode | Phone Number | | Organization | | | | + +---------+ + + | EXTERNAL LAB | | | | + +---------+ + + Culture, Blood (10/09/2017 5:10 PM PDT) + + | Specimen | + + | Blood specimen | | (specimen) | + + + + + | Narrative | Performed At | + + + | Specimen Description BLOOD SPECIAL | EXTERNAL LAB | | REQUESTS SITE NOT GIVEN CULTURE | | | NO GROWTH 6 DAYS | | + + + + +---------+ + + | Performing | Address | City/State/Zipcode | Phone Number | | Organization | | | | + +---------+ + + | EXTERNAL LAB | | | | + +---------+ + + POC Glucose (10/09/2017 11:03 AM PDT) + + + + + + | Component | Value | Ref Range | Performed | Pathologist | | | | | At | Signature | + + + + + + | Glucose, | 162 (H)Comment: Testing | 65 - 99 mg/dL | EXTERNAL | | | Fingerstick | performed at [facility];[address] | | LAB | | | | [address];[place], [place] | | | | | | [address] | | | | + + + + + + + + | Specimen | + + | | + + + +---------+ + + | Performing | Address | City/State/Zipcode | Phone Number | | Organization | | | | + +---------+ + + | EXTERNAL LAB | | | | + +---------+ + + IR Placement Non-tunneled CV Cath (10/09/2017 9:00 AM PDT) + + | Specimen | + + | | + + + + + | Impressions | Performed At | + + + | 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 | | | Replacement of temporary left internal jugular catheter with tip at | | | cavoatrial junction. PLAN: Patient needs to be fully | | | anticoagulated to prevent recurrent thrombosis and loss of | | | hemodialysis access. When infection concerns are resolved and is | | | clinically appropriate, right arm fistulogram with attempt at | | | recanalization of the right subclavian/innominate veins is | | | recommended. If not successful, the left IJ temporary catheter can be | | | converted to a tunneled catheter at that time. Discussed with | | | Yang. | | | AM | | + + + + + + | Narrative | Performed At | + + + | IR CENTRAL VENOUS CATHETER INSERTION dated 10/09/2017 9:00 AM | | | CLINICAL DATA: Nonfunctioning left IJ temporary dialysis catheter | | | COMPARISON STUDIES: Placement fluoroscopic images 10/07/2017 and others | | | PRIMARY FRONT COUNTER CLERK: Jimenez Garnica MD, PhD, [facility] OPERATIONS: | | | 1. Replacement of temporary left internal jugular dialysis catheter | | | 2. Left innominate/superior vena cava angioplasty 3. Left | | | superior vena cava fibrin sheath stripping 4. Left | | | subclavian/innominate/SVC venogram. PROCEDURE: Informed | | | consent was obtained from the patient. Continuous cardiac monitoring | | | was performed throughout the procedure. Medications: 50 mcg | | | Fentanyl IV, 3000 units heparin IV Antibiotic: None Contrast: 30 cc | | | Isovue 250 Fluoroscopy time: 1.1 minutes Radiation dose: 139 mGy air | | | kerma Patient was sterilely prepped and draped in the usual | | | fashion about the left neck. [employer] Field Coordinator fluoroscopic image was obtained | | | showing relatively unchanged position of the existing internal jugular | | | catheter. An Amplatz wire was placed through the existing catheter | | | into the inferior vena cava and the catheter was exchanged for a new | | | 20 cm Mahurkar temporary dialysis catheter. Likely pre-existing | | | catheter, the arterial port would not draw. Therefore, the catheter | | | was removed and a 11 Afghan sheath was placed. Venogram imaging the | | | left subclavian, left innominate and superior vena cava demonstrated | | | thrombotic occlusion at the central aspect of the left innominate vein | | | extending into the superior vena cava. An 8mm by 4 cm angioplasty | | | balloon was then inflated for 2 minutes over the occlusion followed | | | by a fibrin sheath stripping with to and fro motion of the inflated | | | balloon in the superior vena cava. Repeat venogram demonstrated some | | | flow but residual thrombus as well as residual flow-limiting | | | stenosis at the innominate confluence. Patient was heparinized. | | | Therefore, a 12 mm x 4 cm angioplasty balloon was inflated for 5 | | | minutes over the innominate confluence. Follow-up venogram | | | demonstrated orthodoxy of vigorous flow with some AP attenuation | | | at the innominate confluence. The new Viralizeurkar catheter was readvanced | | | and positioned with tip at the cavoatrial junction. All ports had | | | good aspiration and forward flow and the dialysis ports were locked | | | with 1mL/5000 units heparin. The catheter was sutured in place. | | | FINDINGS: The existing catheter tip position is relatively | | | unchanged, possibly slightly retracted just above the cavoatrial | | | junction. Venogram via the left subclavian vein and imaging the | | | left innominate and superior vena cava demonstrates a focal thrombotic | | | occlusion in the central left innominate vein extending past the | | | confluence into the superior vena cava. Following initial | | | angioplasty, it is apparent that there is a severe focal stenosis at | | | the innominate confluence. The existing right innominate and | | | subclavian stents are occluded. The accessory hemiazygos vein is | | | prominent and providing collateral flow around the occlusion. | | | Following interventions, there is orthodoxy of flow through the left | | | innominate vein and superior vena cava with some degree of residual | | | AP attenuation at the innominate confluence. The new catheter tip | | | is at the cavoatrial junction. | | + + + + + | Procedure Note | + + | Khalif Palm Conversion - 02/04/2019 8:18 AM PDT IR CENTRAL VENOUS CATHETER INSERTION | | dated 10/09/2017 9:00 AM CLINICAL DATA: Nonfunctioning left IJ temporary dialysis | | catheter COMPARISON STUDIES: Placement fluoroscopic images 10/07/2017 and others PRIMARY | | FRONT COUNTER CLERK: Jimenez Garnica MD, PhD, [facility] OPERATIONS:1. Replacement of temporary left | | internal jugular dialysis catheter2. Left innominate/superior vena cava angioplasty3. | | Left superior vena cava fibrin sheath stripping4. Left subclavian/innominate/SVC | | venogram. PROCEDURE: Informed consent was obtained from the patient. Continuous cardiac | | monitoring was performed throughout the procedure. Medications: 50 mcg Fentanyl IV, | | 3000 units heparin IVAntibiotic: NoneContrast: 30 cc Isovue 250Fluoroscopy time: 1.1 | | minutesRadiation dose: 139 mGy air kerma Patient was sterilely prepped and draped in the | | usual fashion about the left neck. [employer] Field Coordinator fluoroscopic image was obtained showing | | relatively unchanged position of the existing internal jugular catheter. An Amplatz wire | | was placed through the existing catheter into the inferior vena cava and the catheter | | was exchanged for a new 20 cm Mahurkar temporary dialysis catheter. Likely pre-existing | | catheter, the arterial port would not draw. Therefore, the catheter was removed and a 11 | | Afghan sheath was placed. Venogram imaging the left subclavian, left innominate and | | superior vena cava demonstrated thrombotic occlusion at the central aspect of the left | | innominate vein extending into the superior vena cava. An 8mm by 4 cm angioplasty | | balloon was then inflated for 2 minutes over the occlusion followed by a fibrin sheath | | stripping with to and fro motion of the inflated balloon in the superior vena cava. | | Repeat venogram demonstrated some flow but residual thrombus as well as residual | | flow-limiting stenosis at the innominate confluence. Patient was heparinized. Therefore, | | a 12 mm x 4 cm angioplasty balloon was inflated for 5 minutes over the innominate | | confluence. Follow-up venogram demonstrated orthodoxy of vigorous flow with some AP | | attenuation at the innominate confluence. The new Mahurkar catheter was readvanced and | | positioned with tip at the cavoatrial junction. All ports had good aspiration and | | forward flow and the dialysis ports were locked with 1mL/5000 units heparin. The | | catheter was sutured in place. FINDINGS: The existing catheter tip position is | | relatively unchanged, possibly slightly retracted just above the cavoatrial junction. | | Venogram via the left subclavian vein and imaging the left innominate and superior vena | | cava demonstrates a focal thrombotic occlusion in the central left innominate vein | | extending past the confluence into the superior vena cava. Following initial | | angioplasty, it is apparent that there is a severe focal stenosis at the innominate | | confluence. The existing right innominate and subclavian stents are occluded. The | | accessory hemiazygos vein is prominent and providing collateral flow around the | | occlusion. Following interventions, there is orthodoxy of flow through the left | | innominate vein and superior vena cava with some degree of residual AP attenuation at | | the innominate confluence. The new catheter tip is at the cavoatrial junction. 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 Replacement of temporary left internal jugular catheter with | | tip at cavoatrial junction. PLAN: Patient needs to be fully anticoagulated to prevent | | recurrent thrombosis and loss of hemodialysis access. When infection concerns are | | resolved and is clinically appropriate, right arm fistulogram with attempt at | | recanalization of the right subclavian/innominate veins is recommended. If not | | successful, the left IJ temporary catheter can be converted to a tunneled catheter at | | that time. Discussed with Dr. Soria. Electronically signed by Jimenez Garnica MD on | | 10/09/2017 9:17 AM | |internal jugular catheter with tip | | at cavoatrial junction. | | | |PLAN: | | | |Patient needs to be fully anticoagulated to prevent recurrent thrombosis and loss of hemodi alysis access. When infection concerns are resolved and is clinically appropriate, right arm fistulogram with attempt at recanalization of the right | |subclavian/innominate veins is recommended. If not successful, the left IJ temporary cathet er can be converted to a tunneled catheter at that time. | | | |Discussed with Dr. Soria. | | | | | + + POC Glucose (10/09/2017 5:41 AM PDT) + + + + + + | Component | Value | Ref Range | Performed | Pathologist | | | | | At | Signature | + + + + + + | Glucose, | 88Comment: Testing | 65 - 99 mg/dL | EXTERNAL | | | Fingerstick | performed at [facility];[address] | | LAB | | | | [address];[place] | | | | | | [address] | | | | + + + + + + + + | Specimen | + + | | + + + +---------+ + + | Performing | Address | City/State/Zipcode | Phone Number | | Organization | | | | + +---------+ + + | EXTERNAL LAB | | | | + +---------+ + + External Lab: CBC (10/09/2017 5:15 AM PDT) + + + + + + | Component | Value | Ref Range | Performed | Pathologist | | | | | At | Signature | + + + + + + | WBC | 5.17 | 3.80 - 11.00 | EXTERNAL | | | | | K/uL | LAB | | + + + + + + | RED CELL | 3.60 (L) | 4.20 - 5.70 | EXTERNAL | | | COUNT | | M/uL | LAB | | + + + + + + | Hgb | 10.6 (L) | 13.2 - 17.0 | EXTERNAL | | | | | g/dL | LAB | | + + + + + + | Hematocrit, | 31.1 (L) | 39.0 - 50.0 % | EXTERNAL | | | POC | | | LAB | | + + + + + + | MCV | 86.4 | 80.0 - 100.0 fl | EXTERNAL | | | | | | LAB | | + + + + + + | MCH | 29.5 | 27.0 - 34.0 pg | EXTERNAL | | | | | | LAB | | + + + + + + | MCHC | 34.1 | 32.0 - 35.5 | EXTERNAL | | | | | g/dL | LAB | | + + + + + + | RDW-CV | 54.3 (H) | 37 - 53 fl | EXTERNAL | | | | | | LAB | | + + + + + + | Platelet | 266 | 150 - 400 K/uL | EXTERNAL | | | Count | | | LAB | | | Plasma | | | | | + + + + + + | MPV | 7.0 | fl | EXTERNAL | | | | | | LAB | | + + + + + + | Differentia | AUTOMATED | | EXTERNAL | | | l Type | | | LAB | | + + + + + + | % Segmented | 61.30 | % | EXTERNAL | | | | | | LAB | | | Neutrophils | | | | | + + + + + + | % | 8.56 | % | EXTERNAL | | | Lymphocytes | | | LAB | | + + + + + + | % Monocytes | 11.31 | % | EXTERNAL | | | | | | LAB | | + + + + + + | % | 18.37 | % | EXTERNAL | | | Eosinophils | | | LAB | | + + + + + + | % Basophils | 0.46 | % | EXTERNAL | | | | | | LAB | | + + + + + + | Absolute | 3.17 | 1.90 - 7.40 | EXTERNAL | | | Segmented | | K/uL | LAB | | | Neutrophils | | | | | + + + + + + | Absolute | 0.44 (L) | 1.00 - 3.90 | EXTERNAL | | | Lymphocytes | | K/uL | LAB | | + + + + + + | Absolute | 0.59 | 0.00 - 0.80 | EXTERNAL | | | Monocytes | | K/uL | LAB | | + + + + + + | Absolute | 0.95 (H) | 0.00 - 0.50 | EXTERNAL | | | Eosinophils | | K/uL | LAB | | + + + + + + | Absolute | 0.02Comment: Testing | 0.00 - 0.10 | EXTERNAL | | | Basophils | performed at [facility], [address] | [address] | LAB | | | | [address], | | | | | | [place] [address] | | | | + + + + + + + + | Specimen | + + | Blood specimen | | (specimen) | + + + +---------+ + + | Performing | Address | City/State/Zipcode | Phone Number | | Organization | | | | + +---------+ + + | EXTERNAL LAB | | | | + +---------+ + + Phosphorus (10/09/2017 5:15 AM PDT) + + + + + + | Component | Value | Ref Range | Performed | Pathologist | | | | | At | Signature | + + + + + + | PHOSPHORUS | 5.8 (H)Comment: Testing | 2.3 - 4.8 mg/dL | EXTERNAL | | | | performed at [facility], [address] | | LAB | | | | [address], | | | | | | [place] [address] | | | | + + + + + + + + | Specimen | + + | Blood specimen | | (specimen) | + + + +---------+ + + | Performing | Address | City/State/Zipcode | Phone Number | | Organization | | | | + +---------+ + + | EXTERNAL LAB | | | | + +---------+ + + Magnesium (10/09/2017 5:15 AM PDT) + + + + + + | Component | Value | Ref Range | Performed | Pathologist | | | | | At | Signature | + + + + + + | Magnesium | 2.5 (H)Comment: Testing | 1.7 - 2.4 mg/dL | EXTERNAL | | | | performed at [facility], [address] | | LAB | | | | [address], | | | | | | [place] [address] | | | | + + + [...] + +---------+ + + Comprehensive Metabolic Panel (10/09/2017 5:15 AM PDT) + + + + + + | Component | Value | Ref Range | Performed | Pathologist | | | | | At | Signature | + + + + + + | Na | 133 (L) | 135 - 145 | EXTERNAL | | | | | mmol/L | LAB | | + + + + + + | K | 4.5 | 3.5 - 4.9 | EXTERNAL | | | | | mmol/L | LAB | | + + + + + + | Cl | 95 (L) | 99 - 109 mmol/L | EXTERNAL | | | | | | LAB | | + + + + + + | CO2 | 25 | 23 - 32 mmol/L | EXTERNAL | | | | | | LAB | | + + + + + + | Anion Gap | 18 | 5 - 20 mmol/L | EXTERNAL | | | | | | LAB | | + + + + + + | Glucose, | 79 | 65 - 99 mg/dL | EXTERNAL | | | Fasting | | | LAB | | + + + + + + | BUN | 59 (H) | 8 - 25 mg/dL | EXTERNAL | | | | | | LAB | | + + + + + + | Creatinine | 10.3 (H) | 0.70 - 1.30 | EXTERNAL | | | | | mg/dL | LAB | | + + + + + + | BUN/Creatin | 6 | | EXTERNAL | | | ine Ratio | | | LAB | | + + + + + + | Calcium | 8.2 (L) | 8.5 - 10.5 | EXTERNAL | | | | | mg/dL | LAB | | + + + + + + | Protein, | 7.2 | 6.3 - 8.2 g/dL | EXTERNAL | | | Total | | | LAB | | + + + + + + | Albumin | 3.1 (L) | 3.6 - 5.0 g/dL | EXTERNAL | | | | | | LAB | | + + + + + + | Globulin | 4.1 | 1.3 - 4.9 g/dL | EXTERNAL | | | | | | LAB | | + + + + + + | A/G Ratio | 0.8 (L) | 1.0 - 2.4 | EXTERNAL | | | | | | LAB | | + + + + + + | Bilirubin | 0.8 | 0.1 - 1.5 mg/dL | EXTERNAL | | | Total | | | LAB | | + + + + + + | ALP, | 79 | 35 - 115 U/L | EXTERNAL | | | External | | | LAB | | + + + + + + | AST | 24 | 10 - 45 U/L | EXTERNAL | | | | | | LAB | | + + + + + + | ALT | 17 | 10 - 65 U/L | EXTERNAL | | | | | [...] | | | | | | at [facility], [address] | | | | | | [address], | | | | | | [place] [address] | | | | + + + + + + + + | Specimen | + + | Blood specimen | | (specimen) | + + + +---------+ + + | Performing | Address | City/State/Zipcode | Phone Number | | Organization | | | | + +---------+ + + | EXTERNAL LAB | | | | + +---------+ + + CBC no Differential (10/09/2017 12:19 AM PDT) + + + + + + | Component | Value | Ref Range | Performed | Pathologist | | | | | At | Signature | + + + + + + | WBC | 5.67 | 3.80 - 11.00 | EXTERNAL | | | | | K/uL | LAB | | + + + + + + | RED CELL | 3.69 (L) | 4.20 - 5.70 | EXTERNAL | | | COUNT | | M/uL | LAB | | + + + + + + | Hgb | 10.7 (L) | 13.2 - 17.0 | EXTERNAL | | | | | g/dL | LAB | | + + + + + + | Hematocrit, | 32.1 (L) | 39.0 - 50.0 % | EXTERNAL | | | POC | | | LAB | | + + + + + + | MCV | 87.0 | 80.0 - 100.0 fl | EXTERNAL | | | | | | LAB | | + + + + + + | MCH | 28.9 | 27.0 - 34.0 pg | EXTERNAL | | | | | | LAB | | + + + + + + | MCHC | 33.2 | 32.0 - 35.5 | EXTERNAL | | | | | g/dL | LAB | | + + + + + + | RDW-CV | 52.9 | 37 - 53 fl | EXTERNAL | | | | | | LAB | | + + + + + + | Platelet | 184 | 150 - 400 K/uL | EXTERNAL | | | Count | | | LAB | | | Plasma | | | | | + + + + + + | MPV | 6.4Comment: Testing | fl | EXTERNAL | | | | performed at [facility];[address] | | LAB | | | | [address];[place] | | | | | | [address] | | | | + + + + + + + + | Specimen | + + | | + + + +---------+ + + | Performing | Address | City/State/Zipcode | Phone Number | | Organization | | | | + +---------+ + + | EXTERNAL LAB | | | | + +---------+ + + PTT (10/09/2017 12:19 AM PDT) + + + + + + | Component | Value | Ref Range | Performed | Pathologist | | | | | At | Signature | + + + + + + | aPTT, | 36 (H)Comment: Testing | 23 - 32 seconds | EXTERNAL | | | Patient | performed at [facility];[address] | | LAB | | | | [address];[place], [place] | | | | | | [address] | | | | + + + + + + + + | Specimen | + + | Blood specimen | | (specimen) | + + + +---------+ + + | Performing | Address | City/State/Zipcode | Phone Number | | Organization | | | | + +---------+ + + | EXTERNAL LAB | | | | + +---------+ + + Protime INR (10/09/2017 12:19 AM PDT) + + + + + + | Component | Value | Ref Range | Performed | Pathologist | | | | | At | Signature | + + + + + + | INR | 1.0Comment: REFERENCE | | [...] | | | | | performed at [facility];[address] | | | | | | [facility];[place], [place] | | | | | | [address] | | | | + + + + + + + + | Specimen | + + | Blood specimen | | (specimen) | + + + +---------+ + + | Performing | Address | City/State/Zipcode | Phone Number | | Organization | | | | + +---------+ + + | EXTERNAL LAB | | | | + +---------+ + + POC Glucose (10/08/2017 9:50 PM PDT) + + + + + + | Component | Value | Ref Range | Performed | Pathologist | | | | | At | Signature | + + + + + + | Glucose, | 157 (H)Comment: Testing | 65 - 99 mg/dL | EXTERNAL | | | Fingerstick | performed at [facility];[address] | | LAB | | | | [address];[place] | | | | | | [address] | | | | + + + + + + + + | Specimen | + + | | + + + +---------+ + + | Performing | Address | City/State/Zipcode | Phone Number | | Organization | | | | + +---------+ + + | EXTERNAL LAB | | | | + +---------+ + + MRI Shoulder Right wo Contrast (10/08/2017 7:27 PM PDT) + + | Specimen | + + | | + + + + + | Impressions | Performed At | + + + | 1. Low sensitivity examination but there is no evidence of | | | high-grade rotator cuff disease 2. Significant edema and vascular | | | varicosities in the superficial tissues, but there is no joint | | | effusion. No abscess suggested, no organized fluid collection 3. | | | No marrow signal changes to suggest osteomyelitis although there are | | | degenerative changes noted | | + + + + + + | Narrative | Performed At | + + + | HISTORY: 52-year-old male with joint pain. Renal failure. 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 No recent similar prior study. FINDINGS: | | | The configuration of the AC joint demonstrates are [the, endplate | | | irregularities and some signal changes without joint space widening or | | | proven erosions. There is some anterior distal productive changes | | | arising from the acromion which could contribute to rotator cuff | | | impingement Low yunoti-ax-vveuw ratio renders is a low sensitivity | | | examination. There is no avulsive rotator cuff disease or retraction | | | of myotendinous structures. Intrasubstance or nonhigh-grade | | | undersurface disease or be difficult to exclude especially about the | | | distal anterior supraspinatus insertion, no image 4 series 11 Low | | | sensitivity evaluation the labrum but no proven labral defect about | | | the superior labrum. Labral cyst There is pronounced edema and | | | anasarca and superficial tissues with ectatic vessels noted, likely | | | related to the patient's venous disease Some degenerative changes | | | of the glenohumeral articulation with some marginal productive changes | | | about the right humerus but there is no unexplained skeletal edema. | | | No fracture.. | | + + + + + | Procedure Note | + + | [place] Conversion - 02/04/2019 8:18 AM PDT HISTORY: 52-year-old male with joint | | pain. Renal failure. On dialysis with stenosis of the superior vena cava TECHNIQUE: MR | | of the right shoulder. No recent similar prior study. FINDINGS: The configuration of the | | AC joint demonstrates are [the, endplate irregularities and some signal changes without | | joint space widening or proven erosions. There is some anterior distal productive | | changes arising from the acromion which could contribute to rotator cuff impingement Low | | pmpoyn-ow-vumyp ratio renders is a low sensitivity examination. There is no avulsive | | rotator cuff disease or retraction of myotendinous structures. Intrasubstance or | | nonhigh-grade undersurface disease or be difficult to exclude especially about the | | distal anterior supraspinatus insertion, no image 4 series 11 Low sensitivity evaluation | | the labrum but no proven labral defect about the superior labrum. Labral cyst There is | | pronounced edema and anasarca and superficial tissues with ectatic vessels noted, likely | | related to the patient's venous disease Some degenerative changes of the glenohumeral | | articulation with some marginal productive changes about the right humerus but there is | | no unexplained skeletal edema. No fracture.. IMPRESSION: 1. Low sensitivity examination | | but there is no evidence of high-grade rotator cuff disease 2. Significant edema and | | vascular varicosities in the superficial tissues, but there is no joint effusion. No | | abscess suggested, no organized fluid collection 3. No marrow signal changes to suggest | | osteomyelitis although there are degenerative changes noted | |Some degenerative changes of the glenohumeral articulation with some marginal productive ch anges about the right humerus but there is no unexplained skeletal edema. No fracture.. | | | |IMPRESSION: | | | |1. Low sensitivity examination but there is no evidence of high-grade rotator cuff disease | | | |2. Significant edema and vascular varicosities in the superficial tissues, but there is no joint effusion. No abscess suggested, no organized fluid collection | | | |3. No marrow signal changes to suggest osteomyelitis although there are degenerative change s noted | | | | | + + POC Glucose (10/08/2017 4:07 PM PDT) + + + + + + | Component | Value | Ref Range | Performed | Pathologist | | | | | At | Signature | + + + + + + | Glucose, | 129 (H)Comment: Testing | 65 - 99 mg/dL | EXTERNAL | | | Fingerstick | performed at [facility];[address] | | LAB | | | | [address];[place] | | | | | | [address] | | | | + + + + + + + + | Specimen | + + | | + + + +---------+ + + | Performing | Address | City/State/Zipcode | Phone Number | | Organization | | | | + +---------+ + + | EXTERNAL LAB | | | | + +---------+ + + POC Glucose (10/08/2017 11:27 AM PDT) + + + + + + | Component | Value | Ref Range | Performed | Pathologist | | | | | At | Signature | + + + + + + | Glucose, | 122 (H)Comment: Testing | 65 - 99 mg/dL | EXTERNAL | | | Fingerstick | performed at [facility];[address] | | LAB | | | | [address];[place] | | | | | | [address] | | | | + + + + + + + + | Specimen | + + | | + + + +---------+ + + | Performing | Address | City/State/Zipcode | Phone Number | | Organization | | | | + +---------+ + + | EXTERNAL LAB | | | | + +---------+ + + POC Glucose (10/08/2017 5:46 AM PDT) + + + + + + | Component | Value | Ref Range | Performed | Pathologist | | | | | At | Signature | + + + + + + | Glucose, | 89Comment: Testing | 65 - 99 mg/dL | EXTERNAL | | | Fingerstick | performed at [facility];[address] | | LAB | | | | [address];[place], [place] | | | | | | [address] | | | | + + + + + + + + | Specimen | + + | | + + + +---------+ + + | Performing | Address | City/State/Zipcode | Phone Number | | Organization | | | | + +---------+ + + | EXTERNAL LAB | | | | + +---------+ + + External Lab: CBC (10/08/2017 5:45 AM PDT) + + + + + + | Component | Value | Ref Range | Performed | Pathologist | | | | | At | Signature | + + + + + + | WBC | 7.49 | 3.80 - 11.00 | EXTERNAL | | | | | K/uL | LAB | | + + + + + + | RED CELL | 4.09 (L) | 4.20 - 5.70 | EXTERNAL | | | COUNT | | M/uL | LAB | | + + + + + + | Hgb | 11.9 (L) | 13.2 - 17.0 | EXTERNAL | | | | | g/dL | LAB | | + + + + + + | Hematocrit, | 35.8 (L) | 39.0 - 50.0 % | EXTERNAL | | | POC | | | LAB | | + + + + + + | MCV | 87.6 | 80.0 - 100.0 fl | EXTERNAL | | | | | | LAB | | + + + + + + | MCH | 29.1 | 27.0 - 34.0 pg | EXTERNAL | | | | | | LAB | | + + + + + + | MCHC | 33.2 | 32.0 - 35.5 | EXTERNAL | | | | | g/dL | LAB | | + + + + + + | RDW-CV | 53.4 (H) | 37 - 53 fl | EXTERNAL | | | | | | LAB | | + + + + + + | Platelet | 247Comment: SLIDE | 150 - 400 K/uL | EXTERNAL | | | Count | SCANNED, AGREES WITH | | LAB | | | Plasma | AUTOMATED RESULTS. | | | | | |SLIDE SCANNED, AGREES WITH AUTOMATED RESULTS. | | | | | | | | | | + + + + + + | MPV | 7.7Comment: | fl | EXTERNAL | | | | | | LAB | | + + + + + + | Differentia | AUTOMATED | | EXTERNAL | | | l Type | | | LAB | | + + + + + + | % Segmented | 72.38 | % | EXTERNAL | | | | | | LAB | | | Neutrophils | | | | | + + + + + + | % | 6.36 | % | EXTERNAL | | | Lymphocytes | | | LAB | | + + + + + + | % Monocytes | 9.28 | % | EXTERNAL | | | | | | LAB | | + + + + + + | % | 11.33 | % | EXTERNAL | | | Eosinophils | | | LAB | | + + + + + + | % Basophils | 0.65 | % | EXTERNAL | | | | | | LAB | | + + + + + + | Absolute | 5.42 | 1.90 - 7.40 | EXTERNAL | | | Segmented | | K/uL | LAB | | | Neutrophils | | | | | + + + + + + | Absolute | 0.48 (L) | 1.00 - 3.90 | EXTERNAL | | | Lymphocytes | | K/uL | LAB | | + + + + + + | Absolute | 0.70 | 0.00 - 0.80 | EXTERNAL | | | Monocytes | | K/uL | LAB | | + + + + + + | Absolute | 0.85 (H) | 0.00 - 0.50 | EXTERNAL | | | Eosinophils | | K/uL | LAB | | + + + + + + | Absolute | 0.05 | 0.00 - 0.10 | EXTERNAL | | | Basophils | | K/uL | LAB | | + + + + + + | RBC | RBC AND PLT MORPHOLOGY | | EXTERNAL | | | Morphology | APPEAR NORMALComment: | | LAB | | | | Testing performed at | | | | | | [facility], [address] | | | | | | [place], [place], [place] | | | | | | [address] | | | | + + + + + + + + | Specimen | + + | Blood specimen | | (specimen) | + + + +---------+ + + | Performing | Address | City/State/Zipcode | Phone Number | | Organization | | | | + +---------+ + + | EXTERNAL LAB | | | | + +---------+ + + TSH (10/08/2017 5:45 AM PDT) + + + + + + | Component | Value | Ref Range | Performed | Pathologist | | | | | At | Signature | + + + + + + | TSI | 14.800 (H)Comment: | 0.450 - 5.100 | EXTERNAL | | | | Testing performed at | uIU/mL | LAB | | | | [facility], [address] | | | | | | [place], [place], [place] | | | | | | [address] | | | | + + + + + + + + | Specimen | + + | Blood specimen | | (specimen) | + + + +---------+ + + | Performing | Address | City/State/Zipcode | Phone Number | | Organization | | | | + +---------+ + + | EXTERNAL LAB | | | | + +---------+ + + Phosphorus (10/08/2017 5:45 AM PDT) + + + + + + | Component | Value | Ref Range | Performed | Pathologist | | | | | At | Signature | + + + + + + | PHOSPHORUS | 5.7 (H)Comment: Testing | 2.3 - 4.8 mg/dL | EXTERNAL | | | | performed at [facility], [address] | | LAB | | | | [address], | | | | | | [place] [address] | | | | + + + + + + + + | Specimen | + + | Blood specimen | | (specimen) | + + + +---------+ + + | Performing | Address | City/State/Zipcode | Phone Number | | Organization | | | | + +---------+ + + | EXTERNAL LAB | | | | + +---------+ + + Magnesium (10/08/2017 5:45 AM PDT) + + + + + + | Component | Value | Ref Range | Performed | Pathologist | | | | | At | Signature | + + + + + + | Magnesium | 2.5 (H)Comment: Testing | 1.7 - 2.4 mg/dL | EXTERNAL | | | | performed at [facility], [address] | | LAB | | | | [address], | | | | | | [place] [address] | | | | + + + + + + + + | Specimen | + + | Blood specimen | | (specimen) | + + + +---------+ + + | Performing | Address | City/State/Zipcode | Phone Number | | Organization | | | | + +---------+ + + | EXTERNAL LAB | | | | + +---------+ + + Hemoglobin A1C (10/08/2017 5:45 AM PDT) + + + + + + | Component | Value | Ref Range | Performed | Pathologist | | | | | At | Signature | + + + + + + | Hemoglobin | 5.9Comment: The Swedish | 4.0 - 6.0 % | EXTERNAL [...] | | | | | | reference method. | | | | + + + + + + | Glycohemogl | 123Comment: The ADA | mg/dL | EXTERNAL | [...] | | | | | performed at [facility], [address] | | | | | | [address], | | | | | | [place] [address] | | | | + + + [...] + +---------+ + + Comprehensive Metabolic Panel (10/08/2017 5:45 AM PDT) + + + + + + | Component | Value | Ref Range | Performed | Pathologist | | | | | At | Signature | + + + + + + | Na | 133 (L) | 135 - 145 | EXTERNAL | | | | | mmol/L | LAB | | + + + + + + | K | 4.7 | 3.5 - 4.9 | EXTERNAL | | | | | mmol/L | LAB | | + + + + + + | Cl | 96 (L) | 99 - 109 mmol/L | EXTERNAL | | | | | | LAB | | + + + + + + | CO2 | 24 | 23 - 32 mmol/L | EXTERNAL | | | | | | LAB | | + + + + + + | Anion Gap | 18 | 5 - 20 mmol/L | EXTERNAL | | | | | | LAB | | + + + + + + | Glucose, | 80 | 65 - 99 mg/dL | EXTERNAL | | | Fasting | | | LAB | | + + + + + + | BUN | 46 (H) | 8 - 25 mg/dL | EXTERNAL | | | | | | LAB | | + + + + + + | Creatinine | 9.5 (H) | 0.70 - 1.30 | EXTERNAL | | | | | mg/dL | LAB | | + + + + + + | BUN/Creatin | 5 | | EXTERNAL | | | ine Ratio | | | LAB | | + + + + + + | Calcium | 8.3 (L) | 8.5 - 10.5 | EXTERNAL | | | | | mg/dL | LAB | | + + + + + + | Protein, | 7.3 | 6.3 - 8.2 g/dL | EXTERNAL | | | Total | | | LAB | | + + + + + + | Albumin | 3.1 (L) | 3.6 - 5.0 g/dL | EXTERNAL | | | | | | LAB | | + + + + + + | Globulin | 4.2 | 1.3 - 4.9 g/dL | EXTERNAL | | | | | | LAB | | + + + + + + | A/G Ratio | 0.7 (L) | 1.0 - 2.4 | EXTERNAL | | | | | | LAB | | + + + + + + | Bilirubin | 0.9 | 0.1 - 1.5 mg/dL | EXTERNAL | | | Total | | | LAB | | + + + + + + | ALP, | 84 | 35 - 115 U/L | EXTERNAL | | | External | | | LAB | | + + + + + + | AST | 27 | 10 - 45 U/L | EXTERNAL | | | | | | LAB | | + + + + + + | ALT | 21 | 10 - 65 U/L | EXTERNAL | | | | | [...] [address] | | | | | | [address] [place], | | | | | | [place] [address] | | | | + + + + + + + + | Specimen | + + | Blood specimen | | (specimen) | + + + +---------+ + + | Performing | Address | City/State/Zipcode | Phone Number | | Organization | | | | + +---------+ + + | EXTERNAL LAB | | | | + +---------+ + + POC Glucose (10/07/2017 9:10 PM PDT) + + + + + + | Component | Value | Ref Range | Performed | Pathologist | | | | | At | Signature | + + + + + + | Glucose, | 108 (H)Comment: Testing | 65 - 99 mg/dL | EXTERNAL | | | Fingerstick | performed at [facility];[address] | | LAB | | | | [address];[place] | | | | | | [address] | | | | + + + + + + + + | Specimen | + + | | + + + +---------+ + + | Performing | Address | City/State/Zipcode | Phone Number | | Organization | | | | + +---------+ + + | EXTERNAL LAB | | | | + +---------+ + + POC Glucose (10/07/2017 5:46 PM PDT) + + + + + + | Component | Value | Ref Range | Performed | Pathologist | | | | | At | Signature | + + + + + + | Glucose, | 80Comment: Testing | 65 - 99 mg/dL | EXTERNAL | | | Fingerstick | performed at [facility];[address] | | LAB | | | | [address];[place], [place] | | | | | | [address] | | | | + + + + + + + + | Specimen | + + | | + + + +---------+ + + | Performing | Address | City/State/Zipcode | Phone Number | | Organization | | | | + +---------+ + + | EXTERNAL LAB | | | | + +---------+ + + POC Glucose (10/07/2017 4:53 PM PDT) + + + + + + | Component | Value | Ref Range | Performed | Pathologist | | | | | At | Signature | + + + + + + | Glucose, | 61 (L)Comment: Testing | 65 - 99 mg/dL | EXTERNAL | | | Fingerstick | performed at [facility];[address] | | LAB | | | | [address];[place], [place] | | | | | | [address] | | | | + + + + + + + + | Specimen | + + | | + + + +---------+ + + | Performing | Address | City/State/Zipcode | Phone Number | | Organization | | | | + +---------+ + + | EXTERNAL LAB | | | | + +---------+ + + Culture, Anaerobic (10/07/2017 4:11 PM PDT) + + | Specimen | + + | | + + + + + | Narrative | Performed At | + + + | Specimen Description ABSCESS GRAM STAIN | EXTERNAL LAB | | 1+ | | | WBC'S SEEN | | | NO ORGANISMS SEEN CULTURE | | | NO GROWTH 4 DAYS | | + + + + +---------+ + + | Performing | Address | City/State/Zipcode | Phone Number | | Organization | | | | + +---------+ + + | EXTERNAL LAB | | | | + +---------+ + + POC Glucose (10/07/2017 1:35 PM PDT) + + + + + + | Component | Value | Ref Range | Performed | Pathologist | | | | | At | Signature | + + + + + + | Glucose, | 101 (H)Comment: Testing | 65 - 99 mg/dL | EXTERNAL | | | Fingerstick | performed at [facility];[address] | | LAB | | | | [address];[place] | | | | | | [id number] | | | | + + + + + + + + | Specimen | + + | | + + + +---------+ + + | Performing | Address | City/State/Zipcode | Phone Number | | Organization | | | | + +---------+ + + | EXTERNAL LAB | | | | + +---------+ + + POC Glucose (10/07/2017 1:04 PM PDT) + + + + + + | Component | Value | Ref Range | Performed | Pathologist | | | | | At | Signature | + + + + + + | Glucose, | 49 (L)Comment: Testing | 65 - 99 mg/dL | EXTERNAL | | | Fingerstick | performed at [facility];[address] | | LAB | | | | [address];[place], [place] | | | | | | [id number] | | | | + + + + + + + + | Specimen | + + | | + + + +---------+ + + | Performing | Address | City/State/Zipcode | Phone Number | | Organization | | | | + +---------+ + + | EXTERNAL LAB | | | | + +---------+ + + IR Placement Non-tunneled CV Cath (10/07/2017 12:47 PM PDT) + + | Specimen | + + | | + + + + + | Impressions | Performed At | + + + | Successful placement of a left IJ non-tunneled hemodialysis | | | catheter. PLAN: Once infection clears, consider recanalization of | | | the subclavian/innominate stents versus placement of a tunneled | | | dialysis catheter. Note: Please see separate dictation for | | | aspiration of right arm fluid collection performed same time. | | | | | + + + + + + | Narrative | Performed At | + + + | IR CENTRAL VENOUS CATHETER INSERTION dated 10/07/2017 10:30 AM IR | | | CENTRAL VENOUS CATHETER INSERTION dated 10/07/2017 10:30 AM | | | PROCEDURES: 1. Ultrasound-guided access of the left internal | | | jugular vein. 2. Ultrasound and fluoroscopically guided | | | placement of a left IJ non-tunneled hemodialysis catheter CLINICAL | | | DATA: History of right arm cellulitis with right upper extremity AV | | | access compromised. 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 Need for | | | hemodialysis access. COMPARISON STUDIES: CT right upper extremity | | | 10/07/2017 and others CONSENT: Patient was hypersomnolent and | | | recently given morphine and could not consent for himself. The risks, | | | alternatives and benefits of the procedure were discussed with the | | | patient's hospitalist Dr. Uriostegui. 2 physician signed and verbal | | | consent was given as witnessed by nursing staff. SEDATION: None | | | CONTRAST: None FLUOROSCOPY TIME: 1.5 minutes and 25 mGy air | | | kerma PROCEDURE: The left neck and chest were prepped and draped | | | in usual sterile fashion. The skin and deep subcutaneous soft | | | tissues overlying the right internal jugular vein were anesthetized | | | with 1% lidocaine. A small skin torey was made with a #11 blade. | | | Under real-time ultrasound guidance, using micropuncture technique, | | | the left internal jugular vein was accessed and a microwire advanced. | | | Over the microwire a 5-Afghan micro- sheath was placed. A single | | | ultrasound image was obtained documenting the access and this was | | | placed in the medical record. Through the micro-sheath, an 0.035 | | | Ferraro wire was advanced under fluoroscopic guidance but would not pass | | | into the superior vena cava and repeatedly directed into the right | | | innominate stent. Therefore, an angled glide catheter and wire were | | | used to navigate into the superior vena cava and subsequently the | | | wire was placed into the inferior vena cava. The tract was serially | | | dilated to 12.-Afghan. A 20-cm Mahurkar 12-Afghan temporary | | | hemodialysis catheter was placed. The wire was removed. The | | | catheter tip was parked at the cavoatrial junction. The catheter was | | | flushed to ensure proper function. The base of the catheter was | | | affixed to the skin using two 3-0 Ethilon anchoring sutures. | | | Sterile dressings were applied. Nursing staff then flushed each | | | lumen of the catheter with heparin following department protocol. | | | COMPLICATIONS: None immediate. EBL: None. FINDINGS: Existing | | | right subclavian and right innominate stents are noted. Patent left | | | internal jugular vein. A single fluoroscopic image was obtained | | | documenting the catheter tip positioned in the cavoatrial junction. | | + + + + + | Procedure Note | + + | Néstor, Rad Conversion - 02/04/2019 8:18 AM PDT IR CENTRAL VENOUS CATHETER INSERTION | | dated 10/07/2017 10:30 AM IR CENTRAL VENOUS CATHETER INSERTION dated 10/07/2017 10:30 AM | | PROCEDURES:1. Ultrasound-guided access of the left internal jugular vein. 2. | | Ultrasound and fluoroscopically guided placement of a left IJ non-tunneled hemodialysis | | catheter CLINICAL DATA: History of right arm cellulitis with right upper extremity AV | | access compromised. 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 Need for hemodialysis access. COMPARISON STUDIES: CT | | right upper extremity 10/07/2017 and others CONSENT: Patient was hypersomnolent and | | recently given morphine and could not consent for himself. The risks, alternatives and | | benefits of the procedure were discussed with the patient's hospitalist Dr. Uriostegui. 2 | | physician signed and verbal consent was given as witnessed by nursing staff. SEDATION: | | None CONTRAST: None FLUOROSCOPY TIME: 1.5 minutes and 25 mGy air kerma PROCEDURE: The | | left neck and chest were prepped and draped in usual sterile fashion. The skin and deep | | subcutaneous soft tissues overlying the right internal jugular vein were anesthetized | | with 1% lidocaine. A small skin torey was made with a #11 blade. Under real-time | | ultrasound guidance, using micropuncture technique, the left internal jugular vein was | | accessed and a microwire advanced. Over the microwire a 5-Afghan micro- sheath was | | placed. A single ultrasound image was obtained documenting the access and this was | | placed in the medical record. Through the micro-sheath, an 0.035 Ferraro wire was advanced | | under fluoroscopic guidance but would not pass into the superior vena cava and | | repeatedly directed into the right innominate stent. Therefore, an angled glide catheter | | and wire were used to navigate into the superior vena cava and subsequently the wire | | was placed into the inferior vena cava. The tract was serially dilated to 12.-Afghan. A | | 20-cm Mahurkar 12-Afghan temporary hemodialysis catheter was placed. The wire was | | removed. The catheter tip was parked at the cavoatrial junction. The catheter was | | flushed to ensure proper function. The base of the catheter was affixed to the skin | | using two 3-0 Ethilon anchoring sutures. Sterile dressings were applied. Nursing staff | | then flushed each lumen of the catheter with heparin following department protocol. | | COMPLICATIONS: None immediate. EBL: None. FINDINGS: Existing right subclavian and right | | innominate stents are noted. Patent left internal jugular vein. A single fluoroscopic | | image was obtained documenting the catheter tip positioned in the cavoatrial junction. | | IMPRESSION: Successful placement of a left IJ non-tunneled hemodialysis catheter. PLAN: | | Once infection clears, consider recanalization of the subclavian/innominate stents | | versus placement of a tunneled dialysis catheter. Note: Please see separate dictation | | for aspiration of right arm fluid collection performed same time. | |COMPLICATIONS: None immediate. | | | |EBL: None. | | | |FINDINGS: Existing right subclavian and right innominate stents are noted. Patent left inte rnal jugular vein. A single fluoroscopic image was obtained documenting the catheter tip pos itioned in the cavoatrial junction. | | | |IMPRESSION: | |Successful placement of a left IJ non-tunneled hemodialysis catheter. | | | |PLAN: Once infection clears, consider recanalization of the subclavian/innominate stents ve rsus placement of a tunneled dialysis catheter. | | | |Note: Please see separate dictation for aspiration of right arm fluid collection performed same time. | | | | | + + IR Aspiraton Abscess Hematoma Cyst (10/07/2017 12:47 PM PDT) + + | Specimen | + + | | + + + + + | Impressions | Performed At | + + + | Successful right upper extremity ultrasound-guided aspiration, | | | cultures pending. Likely representing old hematoma. Electronically | | | signed by Jimenez Garnica MD on 10/07/2017 12:54 PM | | + + + + + + | Narrative | Performed At | + + + | IR PUNCTURE ASPIRATION dated 10/07/2017 12:47 PM CLINICAL DATA: | | | History of right arm brachiocephalic fistula with recent MRSA | | | bacteremia, right arm swelling and cellulitis with fluid collection | | | seen adjacent to the fistula on CT of the right arm. Concern for | | | abscess. COMPARISON STUDIES: CT arm 10/07/2017 PRIMARY | | | FRONT COUNTER CLERK: Jimenez Garnica MD, PhD, RPVI OPERATIONS: 1. Right | | | arm ultrasound and fluoroscopic guided soft tissue fluid aspiration. | | | PROCEDURE: 2 physician consent was obtained with myself and | | | File[place]. Continuous cardiac monitoring was performed throughout the | | | procedure. No sedation was used. Please see temporary dialysis | | | catheter of the same date for radiation dose. Following placement | | | of a temporary dialysis catheter, the right upper cavity was sterilely | | | prepped and draped in usual fashion. Skin was locally anesthetized | | | with 1% lidocaine. Ultrasound images were obtained with grayscale and | | | color documenting the patent fistula and adjacent fluid collection | | | without any color flow. A [employer] needle was advanced under | | | ultrasound with difficult visualization secondary to the severe soft | | | tissue swelling. Subsequently a micropuncture needle was used and | | | advanced into the fluid collection followed by a wire confirmed | | | fluoroscopically. The needle was exchanged to the micropuncture sheath | | | which was then used to aspirate approximately 25 cc of dark black | | | fluid which was sent for culture. FINDINGS: Ultrasound | | | demonstrates a relatively anechoic soft tissue fluid collection | | | adjacent to the right upper extremity fistula which has no color flow. | | | Upon aspiration, it appears that this represents an old hematoma. | | + + + + + | Procedure Note | + + | Néstor, Rad Conversion - 02/04/2019 8:18 AM PDT IR PUNCTURE ASPIRATION dated 10/07/2017 | | 12:47 PM CLINICAL DATA: History of right arm brachiocephalic fistula with recent MRSA | | bacteremia, right arm swelling and cellulitis with fluid collection seen adjacent to the | | fistula on CT of the right arm. Concern for abscess. COMPARISON STUDIES: CT arm | | 10/07/2017 PRIMARY FRONT COUNTER CLERK: Jimenez Garnica MD, PhD, RPVI OPERATIONS:1. Right arm | | ultrasound and fluoroscopic guided soft tissue fluid aspiration. PROCEDURE: 2 physician | | consent was obtained with myself and Dr. oClbert. Continuous cardiac monitoring was | | performed throughout the procedure. No sedation was used. Please see temporary dialysis | | catheter of the same date for radiation dose. Following placement of a temporary | | dialysis catheter, the right upper cavity was sterilely prepped and draped in usual | | fashion. Skin was locally anesthetized with 1% lidocaine. Ultrasound images were | | obtained with grayscale and color documenting the patent fistula and adjacent fluid | | collection without any color flow. A [employer] needle was advanced under ultrasound | | with difficult visualization secondary to the severe soft tissue swelling. Subsequently | | a micropuncture needle was used and advanced into the fluid collection followed by a | | wire confirmed fluoroscopically. The needle was exchanged to the micropuncture sheath | | which was then used to aspirate approximately 25 cc of dark black fluid which was sent | | for culture. FINDINGS: Ultrasound demonstrates a relatively anechoic soft tissue fluid | | collection adjacent to the right upper extremity fistula which has no color flow. Upon | | aspiration, it appears that this represents an old hematoma. IMPRESSION: Successful | | right upper extremity ultrasound-guided aspiration, cultures pending. Likely | | representing old hematoma. | |FINDINGS: | | | |Ultrasound demonstrates a relatively anechoic soft tissue fluid collection adjacent to the right upper extremity fistula which has no color flow. Upon aspiration, it appears that this represents an old hematoma. | | | |IMPRESSION: | | | |Successful right upper extremity ultrasound-guided aspiration, cultures pending. Likely rep resenting old hematoma. | | | | | + + US Guided Vascular Access (10/07/2017 12:46 PM PDT) + + | Specimen | [...] + | Néstor, Rad Conversion - 02/04/2019 8:18 AM PDT This Point of Care (POC) ultrasound | | image has been reviewed andinterpreted by the physician identified as the performing | | physician in theassociated interpretation and report. | | | + + CK Total (10/07/2017 9:22 AM PDT) + + + + + + | Component | Value | Ref Range | Performed | Pathologist | | | | | At | Signature | + + + + + + | CK, Total | 140Comment: Testing | 55 - 400 U/L | EXTERNAL | | | | performed at [facility];[address] | | LAB | | | | [address];[place], [place] | | | | | | [address] | | | | + + + + + + + + | Specimen | + + | Blood specimen | | (specimen) | + + + +---------+ + + | Performing | Address | City/State/Zipcode | Phone Number | | Organization | | | | + +---------+ + + | EXTERNAL LAB | | | | + +---------+ + + Vancomycin Level (10/07/2017 9:22 AM PDT) + + + + + + | Component | Value | Ref Range | Performed | Pathologist | | | | | At | Signature | + + + + + + | Vancomycin | >50Comment: Testing | ug/mL | EXTERNAL | | | Random | performed at [facility];[address] | | LAB | | | | [address];[place], [place] | | | | | | [address] | | | | + + + + + + + + | Specimen | + + | Blood specimen | | (specimen) | + + + +---------+ + + | Performing | Address | City/State/Zipcode | Phone Number | | Organization | | | | + +---------+ + + | EXTERNAL LAB | | | | + +---------+ + + MRSA NAAT (10/07/2017 6:50 AM PDT) + + | Specimen | + + | | + + + + + | Narrative | Performed At | + + + | SOURCE NARES(NOSE) MRSA | EXTERNAL LAB | | PCR POSITIVE for MRSA by | | | PCRAbnormal Testing performed at [facility];[address] [place] [address];[place] [address] | | + + + + +---------+ + + | Performing | Address | City/State/Zipcode | Phone Number | | Organization | | | | + +---------+ + + | EXTERNAL LAB | | | | + +---------+ + + Culture, Blood, 2nd Specimen (10/07/2017 4:47 AM PDT) + + | Specimen | + + | Blood specimen | | (specimen) | + + + + + | Narrative | Performed At | + + + | Specimen Description BLOOD, PERIPHERAL DRAW | EXTERNAL LAB | | SPECIAL REQUESTS LWRIST CULTURE | | | NO GROWTH 6 DAYS | | + + + + +---------+ + + | Performing | Address | City/State/Zipcode | Phone Number | | Organization | | | | + +---------+ + + | EXTERNAL LAB | | | | + +---------+ + + Culture, Blood (10/07/2017 4:21 AM PDT) + + | Specimen | + + | Blood specimen | | (specimen) | + + + + + | Narrative | Performed At | + + + | Specimen Description BLOOD SPECIAL | EXTERNAL LAB | | REQUESTS L HAND CULTURE | | | NO GROWTH 6 DAYS | | + + + + +---------+ + + | Performing | Address | City/State/Zipcode | Phone Number | | Organization | | | | + +---------+ + + | EXTERNAL LAB | | | | + +---------+ + + CT Angio Upper Extremity Right w C (10/07/2017 4:02 AM PDT) + + | Specimen | + + | | + + + + + | Impressions | Performed At | + + + | 1. 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 2. | | | Extensive right upper extremity and chest wall subcutaneous edema | | | could be a combination of infection and related to venous obstruction. | | | 3. Approximately 4 x 1 x 5 m fluid collection at the anterior aspect | | | of the distal biceps muscle. If there is clinical concern for | | | abscess/pyomyositis, aspiration could be considered. 4. No other | | | vascular thrombosis seen with patent ectatic bypass graft as seen | | | previously. RADIA Electronically signed by Favio Abbasi | | | on Oct 07 2017 4:43AM Referring Provider Line: [phone] | | | ID: [id number] | | + + + + + + | Narrative | Performed At | + + + | EXAM: RIGHT UPPER EXTREMITY CT ANGIOGRAM WITH CONTRAST EXAM | | | DATE: 10/07/2017 04:03 AM. CLINICAL HISTORY: Right upper arm | | | fistula, infection. COMPARISON: 10/05/2017. TECHNIQUE: | | | Thin-section axial images were acquired of the upper extremity in the | | | arterial phase after administration of intravenous contrast. IV | | | contrast: Iodinated. Post-processing: Multiplanar MPR and 3D MIP | | | reformats. Other: None. In accordance with CT protocol | | | optimization, one or more of the following dose reduction techniques | | | were utilized for this exam: automated exposure control, adjustment of | | | mA and/or KV based on patient size, or use of iterative | | | reconstructive technique. FINDINGS: Vascular Structures: | | | Patient has a SVC and subclavian venous stent which appears thrombosed | | | and collapsed. Remaining vascular structures appear widely patent, | | | including an ectatic brachial to cephalic vein fistula. The graft | | | measures up to 29 x 20 mm in cross section. No arterial high-grade | | | stenosis seen. Other: Severe subcutaneous edema in the right upper | | | extremity and right chest wall. There is a fluid collection at the | | | anterior aspect of the distal biceps muscle, measuring approximately 4 | | | x 1 x 5 cm, axial image 330 series 6 and sagittal image 105. | | | Collection is directly posterior and medial to the bypass graft. No | | | other discrete fluid collection seen. No tracking soft tissue gas | | | seen. Reactive adenopathy. | | + + + + -+ | Procedure Note | + -+ | Néstor, Rad Conversion - 02/04/2019 8:18 AM PDT EXAM:RIGHT UPPER EXTREMITY CT ANGIOGRAM | | WITH CONTRAST EXAM DATE: 10/07/2017 04:03 AM. CLINICAL HISTORY: Right upper arm fistula, | | infection. COMPARISON: 10/05/2017. TECHNIQUE: Thin-section axial images were acquired | | of the upper extremity in the arterial phase after administration of intravenous | | contrast. IV contrast: Iodinated. Post-processing: Multiplanar MPR and 3D MIP reformats. | | Other: None. In accordance with CT protocol optimization, one or more of the following | | dose reduction techniques were utilized for this exam: automated exposure control, | | adjustment of mA and/or KV based on patient size, or use of iterative reconstructive | | technique. FINDINGS: Vascular Structures: Patient has a SVC and subclavian venous stent | | which appears thrombosed and collapsed. Remaining vascular structures appear widely | | patent, including an ectatic brachial to cephalic vein fistula. The graft measures up to | | 29 x 20 mm in cross section.No arterial high-grade stenosis seen. Other: Severe | | subcutaneous edema in the right upper extremity and right chest wall. There is a fluid | | collection at the anterior aspect of the distal biceps muscle, measuring approximately 4 | | x 1 x 5 cm, axial image 330 series 6 and sagittal image 105. Collection is directly | | posterior and medial to the bypass graft. No other discrete fluid collection seen. No | | tracking soft tissue gas seen.Reactive adenopathy. IMPRESSION: 1. Thrombosed and | | collapsed SVC and right subclavian stent.2. Extensive right upper extremity and chest | | wall subcutaneous edema could be a combination of infection and related to venous | | obstruction.3. Approximately 4 x 1 x 5 m fluid collection at the anterior aspect of the | | distal biceps muscle. If there is clinical concern for abscess/pyomyositis, aspiration | | could be considered.4. No other vascular thrombosis seen with patent ectatic bypass | | graft as seen previously. RADIA Electronically signed by Favio Abbasi MD on Oct 07 | | 2017 4:43AM Referring Provider Line: [phone] ID: [id number] | |IMPRESSION: | | | |1. 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 | |2. Extensive right upper extremity and chest wall subcutaneous edema could be a combination of infection and related to venous obstruction. | |3. Approximately 4 x 1 x 5 m fluid collection at the anterior aspect of the distal biceps m uscle. If there is clinical concern for abscess/pyomyositis, aspiration could be considered. | |4. No other vascular thrombosis seen with patent ectatic bypass graft as seen previously. | | | |RADIA | | | | Electronically signed by Favio Abbasi MD on Oct 07 2017 4:43AM Referring Provider Tg e: [id number] ID: [id number] | + -+ HISTORICAL LAB PANEL RESULT (10/07/2017 3:39 AM PDT) + + + + + -+ | Component | Value | Ref Range | Performed | Pathologist | | | | | At | Signature | + + + + + -+ | WBC | 8.72 | 3.80 - 11.00 | EXTERNAL | | | | | K/uL | LAB | | + + + + + -+ | RED CELL | 3.86 (L) | 4.20 - 5.70 | EXTERNAL | | | COUNT | | M/uL | LAB | | + + + + + -+ | Hgb | 11.2 (L) | 13.2 - 17.0 | EXTERNAL | | | | | g/dL | LAB | | + + + + + -+ | Hematocrit, | 33.9 (L) | 39.0 - 50.0 % | EXTERNAL | | | POC | | | LAB | | + + + + + -+ | MCV | 88.0 | 80.0 - 100.0 fl | EXTERNAL | | | | | | LAB | | + + + + + -+ | MCH | 28.9 | 27.0 - 34.0 pg | EXTERNAL | | | | | | LAB | | + + + + + -+ | MCHC | 32.9 | 32.0 - 35.5 | EXTERNAL | | | | | g/dL | LAB | | + + + + + -+ | RDW-CV | 55.1 (H) | 37 - 53 fl | EXTERNAL | | | | | | LAB | | + + + + + -+ | Platelet | 283 | 150 - 400 K/uL | EXTERNAL | | | Count | | | LAB | | | Plasma | | | | | + + + + + -+ | MPV | 6.9 | fl | EXTERNAL | | | | | | LAB | | + + + + + -+ | Differentia | AUTOMATED | | EXTERNAL | | | l Type | | | LAB | | + + + + + -+ | % Segmented | 71.99 | % | EXTERNAL | | | | | | LAB | | | Neutrophils | | | | | + + + + + -+ | % | 6.30 | % | EXTERNAL | | | Lymphocytes | | | LAB | | + + + + + -+ | % Monocytes | 7.96 | % | EXTERNAL | | | | | | LAB | | + + + + + -+ | % | 13.07 | % | EXTERNAL | | | Eosinophils | | | LAB | | + + + + + -+ | % Basophils | 0.68 | % | EXTERNAL | | | | | | LAB | | + + + + + -+ | Absolute | 6.28 | 1.90 - 7.40 | EXTERNAL | | | Segmented | | K/uL | LAB | | | Neutrophils | | | | | + + + + + -+ | Absolute | 0.55 (L) | 1.00 - 3.90 | EXTERNAL | | | Lymphocytes | | K/uL | LAB | | + + + + + -+ | Absolute | 0.69 | 0.00 - 0.80 | EXTERNAL | | | Monocytes | | K/uL | LAB | | + + + + + -+ | Absolute | 1.14 (H) | 0.00 - 0.50 | EXTERNAL | | | Eosinophils | | K/uL | LAB | | + + + + + -+ | Absolute | 0.06 | 0.00 - 0.10 | EXTERNAL | | | Basophils | | K/uL | LAB | | + + + + + -+ | Na | 130 (L) | 135 - 145 | EXTERNAL | | | | | mmol/L | LAB | | + + + + + -+ | K | 5.7 (H)Comment: MODERATE | 3.5 - 4.9 | EXTERNAL | | | | HEMOLYSIS | mmol/L | LAB | | + + + + + -+ | Cl | 100 | 99 - 109 mmol/L | EXTERNAL | | | | | | LAB | | + + + + + -+ | CO2 | 14 (LL)Comment: CALLED | 23 - 32 mmol/L | EXTERNAL | | | | DR HANY AMAYA | | LAB | | | | AT [id number] BY RHREAD BACK | | | | | | RESULTS VERIFIED | | | | | |READ BACK RESULTS VERIFIED | | | | | | | | | | + + + + + -+ | Anion Gap | 21 (H) | 5 - 20 mmol/L | EXTERNAL | | | | | | LAB | | + + + + + -+ | Glucose, | 82 | 65 - 99 mg/dL | EXTERNAL | | | Fasting | | | LAB | | + + + + + -+ | BUN | 81 (H) | 8 - 25 mg/dL | EXTERNAL | | | | | | LAB | | + + + + + -+ | Creatinine | 15 (H) | 0.70 - 1.30 | EXTERNAL | | | | | mg/dL | LAB | | + + + + + -+ | BUN/Creatin | 5 | | EXTERNAL | | | ine Ratio | | | LAB | | + + + + + -+ | Calcium | 7.4 (L) | 8.5 - 10.5 | EXTERNAL | | | | | mg/dL | LAB | | + + + + + -+ | Protein, | 7.2 | 6.3 - 8.2 g/dL | EXTERNAL | | | Total | | | LAB | | + + + + + -+ | Albumin | 2.8 (L) | 3.6 - 5.0 g/dL | EXTERNAL | | | | | | LAB | | + + + + + -+ | Globulin | 4.3 | 1.3 - 4.9 g/dL | EXTERNAL | | | | | | LAB | | + + + + + -+ | A/G Ratio | 0.7 (L) | 1.0 - 2.4 | EXTERNAL | | | | | | LAB | | + + + + + -+ | Bilirubin | 0.6 | 0.1 - 1.5 mg/dL | EXTERNAL | | | Total | | | LAB | | + + + + + -+ | ALP, | 115 | 35 - 115 U/L | EXTERNAL | | | External | | | LAB | | + + + + + -+ | AST | 36Comment: MODERATE | 10 - 45 U/L | EXTERNAL | | | | HEMOLYSIS | | LAB | | + + + + + -+ | ALT | 30 | 10 - 65 U/L | EXTERNAL | | | | | | LAB | | + + + + + -+ | Estimated | 4 (L)Comment: GFR <60: | mL/min/1.73m2 | EXTERNAL | | | GFR | CHRONIC KIDNEY DISEASE, | | LAB | | | | IF FOUND OVER A 3 MONTH | | | | | | PERIOD.GFR <15: KIDNEY | | | | | | FAILURE.FOR | | | | | | AMERICANS, MULTIPLY THE | | | | | | CALCULATED GFR BY 1.210. | | | | | | | | | | + + + + + -+ | CK, Total | 163Comment: MODERATE | 55 - 400 U/L | EXTERNAL | | | | HEMOLYSIS | | LAB | | + + [...] SYSTEMIC | | | | | | EMBOLISM | | | | + + + + + -+ | aPTT, | 33 (H) | 23 - 32 seconds | EXTERNAL | | | Patient | | | LAB | | + + + + + -+ | CK-MB | 7.6 (H) | 0.5 - 3.6 ng/mL | EXTERNAL | | | | | | LAB | | + + + + + -+ | CK-MB Index | 4.7Comment: CK INDEX | | EXTERNAL | | [...] | | | + +---------+ + + Troponin I (10/07/2017 3:39 AM PDT) + + + + + + | Component | Value | Ref Range | Performed | Pathologist | | | | | At | Signature | + + + + + + | Troponin I, | <0.020Comment: 0.00 to | 0.00 - 0.10 | EXTERNAL | | | Qual | 0.10 CONSISTENT WITH | ng/mL | LAB | | | | NORMAL POPULATION0.11 | | | | | | to 0.60 CONSISTENT | | | | | | WITH INCREASED RISK FOR | | | | | | ADVERSE OUTCOMES> 0.60 | | | | | | CONSISTENT | | | | | | WITH WHO CRITERIA FOR | | | | | | ACUTE MD Testing | | | | | | performed at [facility];[address] | | | | | | [address];[place], [place] | | | | | | [address] | | | | + + + + + + + + | Specimen | + + | Blood specimen | | (specimen) | + + + +---------+ + + | Performing | Address | City/State/Zipcode | Phone Number | | Organization | | | | + +---------+ + + | EXTERNAL LAB | | | | + +---------+ + + Sedimentation rate, automated (10/07/2017 3:39 AM PDT) + + + + + + | Component | Value | Ref Range | Performed | Pathologist | | | | | At | Signature | + + + + + + | Sed Rate | 36 (H)Comment: Testing | 0 - 20 mm/Hr | EXTERNAL | | | | performed at [facility] | | LAB | | | | [address];[place] | | | | | | [address] | | | | + + + + + + + + | Specimen | + + | Blood specimen | | (specimen) | + + + +---------+ + + | Performing | Address | City/State/Zipcode | Phone Number | | Organization | | | | + +---------+ + + | EXTERNAL LAB | | | | + +---------+ + + C-Reactive Protein (10/07/2017 3:39 AM PDT) + + + + + + | Component | Value | Ref Range | Performed | Pathologist | | | | | At | Signature | + + + + + + | CRP | 9.3 (H)Comment: Testing | mg/dL | EXTERNAL | | | | performed at [facility] | | LAB | | | | [address];[place], [place] | | | | | | [address] | | | | + + + [...] +---------+ + + XR Chest 1 Vw (10/06/2017 1:47 AM PDT) + + | Specimen | + + | | + + + + + | Narrative | Performed At | + + + | This is a non-reportable procedure without a radiologist report and | | | is used for image storage only | | + + + + + | Procedure Note | + + | Khalif Palm - 02/04/2019 8:18 AM PDT This is a non-reportable procedure | | without a radiologist report and isused for image storage only | + + documented in this encounter Visit Diagnoses + + | Diagnosis | + + | Pain Generalized pain | + + | Staphylococcus aureus bacteremia Bacteremia | + + | Hypoalbuminemia Other disorders of plasma protein metabolism | + + | Hyperphosphatemia Disorders of phosphorus metabolism | + + | Hyperkalemia Hyperpotassemia | + + | Anasarca Edema | + + | Swelling of right upper extremity | + + | Cellulitis of right upper extremity Cellulitis and abscess of upper arm and forearm | + + | End stage renal failure on dialysis (HCC) End stage renal disease | + + | 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
--- OUTSIDE RECORDS SUMMARY | ~2019-05-20 | XMS | Encounter Summary ---
Demographics + + + | Address | [address] | | | [place] [address] | + + + | Home Phone | | + + + | Preferred Language | Unknown | + + + | Marital Status | Unknown | + + + | Orthodox Affiliation | 1076 | + + + | Race | Unknown | + + + | Ethnic Group | Unknown | + + + Author + + + | Author | [facility] | | | and [place] | + + + | Organization | [facility] | | | [...] Team Providers + +------+ + | Care Bandsaw Operator Name | Role | Phone | + +------+ + PCP | Unavailable | + +------+ + Encounter Details +--------+ + + + + | Date | Type | Department | Care Team | Description | +--------+ + + + + | 02/08/ | Hospital | [facility] | Conversion | | | 2014 | Encounter | [facility] | Transaction, | | | | | CLIN[facility] [address] | Provider Unknown | | | | | [facility] [place], [place] | | | | | | [address] | (Fax) | | | | | [phone] | | | +--------+ + + + [...] + | MRSA NAAT | Timed | 02/08/2014 | | Results for this | | | | 5:12 PM | | procedure are in the | | | | PDT | | results section. | + +--------+ + + + | EXTERNAL LAB: CBC | Routin | 02/08/2014 | | Results for this | | | e | 5:11 PM | | procedure are in the | | | | PDT | | results section. | + +--------+ + + + | PTT | Routin | 02/08/2014 | | Results for this | | | e | 5:11 PM | | procedure are in the | | | | PDT | | results section. | + +--------+ + + + | PROTIME INR | Routin | 02/08/2014 | | Results for this | | | e | 5:11 PM | | procedure are in the | | | | PDT | | results section. | + +--------+ + + + | BASIC METABOLIC | Routin | 02/08/2014 | | Results for this | | PANEL | e | 5:11 PM | | procedure are in the | | | | PDT | | results section. | + +--------+ + + + documented in this encounter Results MRSA NAAT (02/08/2014 5:12 PM PDT) + + | Specimen | + + | | + + + + + | Narrative | Performed At | + + + | SOURCE NARES(NOSE) | EXTERNAL LAB | | Testing performed at [facility];[address] [facility];[place] [address] MRSA PCR | | | NEGATIVE Testing performed at | | | [facility];[address] [place] [address];[place] [address] | | + + + + +---------+ + + | Performing | Address | City/State/Zipcode | Phone Number | | Organization | | | | + +---------+ + + | EXTERNAL LAB | | | | + +---------+ + + PTT (02/08/2014 5:11 PM PDT) + + + + + + | Component | Value | Ref Range | Performed | Pathologist | | | | | At | Signature | + + + + + + | aPTT, | 25Comment: Testing | 23 - 32 seconds | EXTERNAL | | | Patient | performed at [facility];[address] | | LAB | | | | [address];[place] | | | | | | [address] | | | | + + + + + + + + | Specimen | + + | Blood specimen | | (specimen) | + + + +---------+ + + | Performing | Address | City/State/Zipcode | Phone Number | | Organization | | | | + +---------+ + + | EXTERNAL LAB | | | | + +---------+ + + Protime INR (02/08/2014 5:11 PM PDT) + + + + + [...] | | | | | performed at [facility] | | | | | | [facility];[place], [place] | | | | | | [address] | | | | + + + [...] + +---------+ + + External Lab: CBC (02/08/2014 5:11 PM PDT) + + + + + + | Component | Value | Ref Range | Performed | Pathologist | | | | | At | Signature | + + + + + + | WBC | 6.3Comment: Testing | 3.8 - 11.0 K/uL | EXTERNAL | | | | performed at [facility];[address] | | LAB | | | | [address];[place] | | | | | | [address] | | | | + + + + + + | RED CELL | 3.93 (L)Comment: Testing | 4.20 - 5.70 | EXTERNAL | | | COUNT | performed at [facility];[address] | M/uL | LAB | | | | [address];[place] | | | | | | [address] | | | | + + + + + + | Hgb | 12.3 (L)Comment: Testing | 13.2 - 17.0 | EXTERNAL | | | | performed at [facility];[address] | g/dL | LAB | | | | [address];[place] | | | | | | [address] | | | | + + + + + + | Hematocrit, | 36.0 (L)Comment: Testing | 39.0 - 50.0 % | EXTERNAL | | | POC | performed at [facility];[address] | | LAB | | | | [address];[place] | | | | | | [address] | | | | + + + + + + | MCV | 91.7Comment: Testing | 80.0 - 100.0 fl | EXTERNAL | | | | performed at [facility];[address] | | LAB | | | | [address];[place] | | | | | | [address] | | | | + + + + + + | MCH | 31.2Comment: Testing | 27.0 - 34.0 pg | EXTERNAL | | | | performed at [facility];[address] | | LAB | | | | [address];[place] | | | | | | [address] | | | | + + + + + + | MCHC | 34.1Comment: Testing | 32.0 - 35.5 | EXTERNAL | | | | performed at [facility];[address] | g/dL | LAB | | | | [address];[place] | | | | | | [address] | | | | + + + + + + | RDW-CV | 49.4Comment: Testing | 37 - 53 fl | EXTERNAL | | | | performed at [facility];[address] | | LAB | | | | [address];[place] | | | | | | [address] | | | | + + + + + + | Platelet | 249Comment: Testing | 150 - 400 K/uL | EXTERNAL | | | Count | performed at [facility];[address] | | LAB | | | Plasma | [address];[place] | | | | | | [address] | | | | + + + + + + | MPV | 6.7Comment: Testing | fl | EXTERNAL | | | | performed at [facility];[address] | | LAB | | | | [address];[place] | | | | | | [address] | | | | + + + + + + | Differentia | AUTOMATEDComment: | | EXTERNAL | | | l Type | Testing performed at | | LAB | | | | [facility];[address];[place] [address] | | | | + + + + + + | % Segmented | 67.3Comment: Testing | % | EXTERNAL | | | | performed at [facility];[address] | | LAB | | | Neutrophils | [address];[place] | | | | | | [address] | | | | + + + + + + | % | 15.7Comment: Testing | % | EXTERNAL | | | Lymphocytes | performed at [facility];[address] | | LAB | | | | [address];[place] | | | | | | [address] | | | | + + + + + + | % Monocytes | 9.9Comment: Testing | % | EXTERNAL | | | | performed at [facility];[address] | | LAB | | | | [address];[place] | | | | | | [address] | | | | + + + + + + | % | 6.7Comment: Testing | % | EXTERNAL | | | Eosinophils | performed at [facility];[address] | | LAB | | | | [address];[place] | | | | | | [address] | | | | + + + + + + | % Basophils | 0.4Comment: Testing | % | EXTERNAL | | | | performed at [facility];[address] | | LAB | | | | [address];[place] | | | | | | [address] | | | | + + + + + + | Absolute | 4.2Comment: Testing | 1.9 - 7.4 K/uL | EXTERNAL | | | Segmented | performed at [facility];[address] | | LAB | | | Neutrophils | [address];[place] | | | | | | [address] | | | | + + + + + + | Absolute | 1.0Comment: Testing | 1.0 - 3.9 K/uL | EXTERNAL | | | Lymphocytes | performed at [facility];[address] | | LAB | | | | [address];[place] | | | | | | [address] | | | | + + + + + + | Absolute | 0.6Comment: Testing | 0 - 0.8 K/uL | EXTERNAL | | | Monocytes | performed at [facility];[address] | | LAB | | | | [address];[place] | | | | | | [address] | | | | + + + + + + | Absolute | 0.4Comment: Testing | 0 - 0.5 K/uL | EXTERNAL | | | Eosinophils | performed at [facility];[address] | | LAB | | | | [address];[place] | | | | | | [address] | | | | + + + + + + | Absolute | 0.0Comment: Testing | 0 - 0.1 K/uL | EXTERNAL | | | Basophils | performed at [facility];[address] | | LAB | | | | [address];[place] | | | | | | [address] | | | | + + + [...] + +---------+ + + Basic Metabolic Panel (02/08/2014 5:11 PM PDT) + + + + + + | Component | Value | Ref Range | Performed | Pathologist | | | | | At | Signature | + + + + + + | Na | 138Comment: Testing | 135 - 143 | EXTERNAL | | | | performed at [facility];[address] | mmol/L | LAB | | | | [address];[place] | | | | | | [address] | | | | + + + + + + | K | 3.7Comment: Testing | 3.5 - 4.9 | EXTERNAL | | | | performed at [facility];[address] | mmol/L | LAB | | | | [address];[place] | | | | | | [address] | | | | + + + + + + | Cl | 96 (L)Comment: Testing | 99 - 109 mmol/L | EXTERNAL | | | | performed at [facility];[address] | | LAB | | | | [address];[place] | | | | | | [address] | | | | + + + + + + | CO2 | 35 (H)Comment: Testing | 23 - 32 mmol/L | EXTERNAL | | | | performed at [facility];[address] | | LAB | | | | [address];[place] | | | | | | [address] | | | | + + + + + + | Anion Gap | 11Comment: Testing | 5 - 20 mmol/L | EXTERNAL | | | | performed at [facility];[address] | | LAB | | | | [address];[place] | | | | | | [address] | | | | + + + + + + | Glucose, | 176 (H)Comment: Testing | 65 - 99 mg/dL | EXTERNAL | | | Fasting | performed at [facility];[address] | | LAB | | | | [address];[place] | | | | | | [address] | | | | + + + + + + | BUN | 12Comment: Testing | 8 - 25 mg/dL | EXTERNAL | | | | performed at [facility];[address] | | LAB | | | | [address];[place] | | | | | | [address] | | | | + + + + + + | Creatinine | 4.53 (H)Comment: Testing | 0.70 - 1.30 | EXTERNAL | | | | performed at [facility];[address] | mg/dL | LAB | | | | [address];[place] | | | | | | [address] | | | | + + + + + + | BUN/Creatin | 3Comment: Testing | | EXTERNAL | | | ine Ratio | performed at [facility];[address] | | LAB | | | | [address];[place] | | | | | | [address] | | | | + + + + + + | Calcium | 8.2 (L)Comment: Testing | 8.5 - 10.2 | EXTERNAL | | | | performed at [facility];[address] | mg/dL | LAB | | | | [address];[place] | | | | | | [address] | | | | + + + [...] | | | | | | at [facility];[address] [place] [address] | | | | | | [facility];[place] [address] | | | | + + + [...]
--- OUTSIDE RECORDS SUMMARY | ~2019-05-20 | XMS | Encounter Summary ---
Demographics + + + | Address | [address] | | | [place] [address] | + + + | Home Phone [...] Team Providers + +------+ + | Care Playroom Attendant Name | Role | Phone | + +------+ + PCP | Unavailable | + +------+ + Encounter Details +--------+ + + + + | Date | Type | Department | Care Team | Description | +--------+ + + + + | 05/14/ | Hospital | [facility] | Sowmya Shaikh MD | Fever; Diabetes | | 2011 - | Encounter | [facility] | [address] [facility] | mellitus (FORMERLY [facility]); | | | | CARE FLOOR [phone] | [place] [address] | Febrile illness, | | 05/17/ | | [address] | [phone] | acute; ESRD (end | | 2011 | | [place], [place] | | stage renal disease) | | | | [phone] | | on dialysis ([facility]LY [facility]); | | | | [phone] | | Diabetes mellitus | | | | | | with ESRD (end-stage | | | | | | renal disease) | | | | | | ([facility]); | | | | | | Hypoalbuminemia; | | | | | | Vitamin d | | | | | | deficiency; Type II | | | | | | or unspecified type | | | | | | diabetes mellitus | | | | | | without mention of | | | | | | complication, not | | | | | | stated as | | | | | | uncontrolled ([facility]); | | | | | | HTN (hypertension); | | | | | | 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, | | | | | | continuous ([facility]); | | | | | | DVT (deep venous | | | | | | thrombosis) ([facility]); | | | | | | Bacteremia; | | | | | | Hyperphosphatemia; | | | | | | Anemia of chronic | | | | | | kidney failure; ESRD | | | | | | (end stage renal | | | | | | disease) ([facility]); | | | | | | Essential | | | | | | hypertension, | | | | | | benign; Secondary | | | | | | hyperparathyroidism | | | | | | (of renal origin) | | | | | | ([facility]); Bacteremia | | | | | | due to Gram-positive | | | | | | bacteria; Rash and | | | | | | nonspecific skin | | | | | | eruption; | | | | | | Hypokalemia; Asthma | +--------+ + + + + Social [...] documented as of this encounter Discharge Summaries Carlee Bejarano MD - 05/17/2012 9:56 AM PST Discharge Summaries by Carlee Bejarano MD at 05/17/1256 Author: Carlee Bejarano MD Service: (none) Author Type: Physician Filed: 05/17/12 1010 Date of Service: 05/17/12955 Status: Addendum Disabilities Caregiver: Carlee Bejarano MD (Physician) Related Notes: Original Note by Carlee Bejarano MD (Physician) filed at 05/17/12 1008 [facility] Service: Hospitalist Discharge Summary Date of Admission: 05/14/2012 Date of Discharge: 05/17/2012 Discharge Provider: CARLEE BEJARANO MD Treatment Team: Consulting Physician: Sean Solorzano MD Consulting Physician: Ruslan Escobar DO Consulting Physician: Kisha Tello MD Consulting Physician: Juan Cook MD Admitting Provider: Sowmya Shaikh MD Discharge Diagnoses: Active Problems: Rash and nonspecific skin eruption ESRD (end stage renal disease) on dialysis Febrile illness, acute Diabetes mellitus Asthma Bacteremia due to Gram-positive bacteria BRIEF HISTORY OF PRESENTATION: Enrique Potter is a 47 y.o. male who presented with fever despite on intravenous vancomycin . The patient was diagnosed with Staphylococcus aureus and Streptococcus bacteremia. Please refer to the history and physical examination note of Dr. Shaikh and consultation note of Dr. Escobar. HOSPITAL COURSE: On admission he was started on linezolid. According to Dr. Escobar blood cultures from [facility] outpatient dialysis unit where he had fever before admission was a probable contaminant. S ubsequent blood cultures taken during his hospital stay were negative. His urinalysis and ch est radiograph performed were not suggestive of an infection. On further review of history t he patient denied any nausea, vomiting, diarrhea, cough, headaches, or urinary changes. The patient did have rashes but that did not appear to be infected. The patient had low grade fe vers during the hospitalization but overall had improved. He is able to take food and his me dications orally. Linezolid was discontinued today. Dr. Escobar cleared the patient for dischar ge. Past Medical History Diagnosis Date Hyperlipidemia Hypertension Diabetes mellitus type II Asthma Thyroid disease Anemia Abdominal pain, right upper quadrant 04/13/2012 DVT (deep venous thrombosis) Chronic kidney disease Dialysis patient GI bleed 04/30/2012 Past Surgical History Procedure Date Unlisted procedure arthroscopy Colonoscopy with egd 05/01/2012 Procedure: COLONOSCOPY W/ EGD; Surgeon: John Singleton MD; Location: [facility] ENDOSCOPY; Se rvice: Gastroenterology; Laterality: N/A; Av fistula placement 05/06/2012 Procedure: AV FISTULA; Surgeon: Oskar Meyer MD; Location: [facility] MAIN OR; Service: Vascul ar; Laterality: Left; Left arm possible right Allergies Allergen Reactions Lisinopril Other (See Comments) "makes me sweat and knocked me out" Penicillins Other (See Comments) unknown Prescriptions prior to admission Medication Sig Dispense Refill albuterol (PROVENTIL) (2.5 MG/3ML) 0.083% nebulizer solution Take 2.5 mg by nebulizatio n every 6 (six) hours as needed. ALBUTEROL IN Inhale 2 puffs into the lungs daily. amlodipine (NORVASC) 10 MG tablet Take 1 tablet by mouth daily. 30 tablet 1 citalopram (CELEXA) 20 MG tablet Take 20 mg by mouth daily. ergocalciferol (DRISDOL) 11166 UNITS capsule Take 1 capsule by mouth once a week. 3 ca psule 0 folic acid-vitamin b complex-vitamin g-uocmrxxl-zjpv (DIALYVITE) 3 MG TABS Take 1 table t by mouth daily. levothyroxine (SYNTHROID, LEVOTHROID) 25 MCG tablet Take 1 tablet by mouth every mornin g before breakfast. 30 tablet 0 omeprazole (PRILOSEC) 40 MG capsule Take 1 capsule by mouth 2 (two) times daily. 60 ca psule 1 DISCONTD: vancomycin (VANCOCIN) IVPB Administer 750 mg IV with hemodialysis on dialysis days 17 Doses 0 calcitRIOL (ROCALTROL) 0.25 MCG capsule Take 1 capsule by mouth daily. 30 capsule 1 hydrocodone-acetaminophen (VICODIN) 5-500 MG per tablet Take 1-2 tablets by mouth every 6 (six) hours as needed for Pain. 30 tablet 0 DISCHARGE EXAM Vital Signs: BP 125/65 | Pulse 74 | Temp(Src) 98.1 F (36.7 C) (Oral) | Resp 18 | Ht 1.702 m (5' 7") | Wt 83 kg (182 lb 15.7 oz) | BMI 28.66 kg/m2 | SpO2 100% Patient Vitals for the past 24 hrs: BP Temp Temp src Pulse Resp SpO2 Weight 05/17/12 0714 125/65 mmHg 98.1 F (36.7 C) Oral 74 18 100 % - 05/17/12 0356 130/69 mmHg 98.3 F (36.8 C) Oral 72 18 99 % 83 kg (182 lb 15.7 oz) 05/16/12 2324 128/60 mmHg 98.6 F (37 C) Oral 77 18 99 % - 05/16/122229 - 98.8 F (37.1 C) Oral - 18 100 % - 05/16/122202 - - - - - - 82.5 kg (181 lb 14.1 oz) 05/16/122144 143/75 mmHg - - - - - - 05/16/122129 141/74 mmHg - - - - - - 05/16/122114 140/68 mmHg - - - - - - 05/16/122044 157/74 mmHg - - - - - - 05/16/122029 151/78 mmHg - - - - - - 05/16/122014 149/77 mmHg - - - - - - 05/16/122002 151/72 mmHg 97.1 F (36.2 C) Oral 82 18 99 % - 05/16/121944 151/72 mmHg - - - - - - 05/16/121929 149/70 mmHg - - - - - - 05/16/12 191 143/71 mmHg - - - - - - 05/16/12 184 129/67 mmHg - - - - - - 05/16/12 183 130/65 mmHg - - - - - 85.4 kg (188 lb 4.4 oz) 05/16/12 1611 122/58 mmHg 99.5 F (37.5 C) Oral 78 20 97 % - 05/16/12 1100 120/58 mmHg 98.4 F (36.9 C) Oral 76 18 100 % - Physical Exam Vitals reviewed. Constitutional: He is oriented to person, place, and time. Neck: Normal range of motion. Neck supple. Cardiovascular: Normal rate and regular rhythm. Pulmonary/Chest: Effort normal and breath sounds normal. No respiratory distress. He has no wheezes. He has no rales. He exhibits no tenderness. Abdominal: Soft. Bowel sounds are normal. He exhibits no distension. There is no tenderness . There is no rebound. Musculoskeletal: He exhibits no edema. Neurological: He is alert and oriented to person, place, and time. Skin: Rash noted. DATA Results Procedure Component Value Units Date/Time POCT glucose [[id number]] Collected:05/17/12 0537 GLUCOSE,POC SCREEN 88 mg/dL Updated:05/17/12 0735 POCT glucose [[id number]] (Abnormal) Collected:05/16/12 2106 GLUCOSE,POC SCREEN 123 (H) mg/dL Updated:05/16/12 2304 POCT glucose [[id number]] (Abnormal) Collected:05/16/12 1708 GLUCOSE,POC SCREEN 132 (H) mg/dL Updated:05/16/12 1749 POCT glucose [[id number]] (Abnormal) Collected:05/16/12 1125 GLUCOSE,POC SCREEN 208 (H) mg/dL Updated:05/16/12 1657 CBC w/auto diff (reflex to manual) [[id number]] (Abnormal) Collected:05/16/12 0445 WBC 10.3 K/uL Updated:05/16/12 0609 RBC 2.95 (L) M/uL HGB 9.1 (L) g/dL HCT 27.1 (L) % MCV 91.7 fl MCH 30.7 pg MCHC 33.5 g/dL RDW SD 46.8 fl PLT 226 K/uL MPV 7.6 fl DIFF TYPE AUTOMATED NEUTROPHILS 64.5 % LYMPHOCYTES 7.1 (L) % MONOCYTES 8.5 % EOSINOPHILS 19.6 (H) % BASOPHILS 0.3 % NEUTROPHILS ABS 6.6 K/uL LYMPHOCYTES ABS 0.7 (L) K/uL MONOCYTES ABS 0.9 (H) K/uL EOSINOPHILS ABS 2.0 (H) K/uL BASOPHILS ABS 0.0 K/uL Renal function panel [[id number]] (Abnormal) Collected:05/16/12444 Specimen Information:Blood Updated:05/16/1251 SODIUM 135 mmol/L POTASSIUM 3.7 mmol/L CHLORIDE 95 (L) mmol/L CO2 25 mmol/L ANION GAP AGAP 18 mmol/L GLUCOSE 106 (H) mg/dL BUN 37 (H) mg/dL CREATININE 6.86 (H) mg/dL CALCIUM 7.5 (L) mg/dL Albumin 2.5 (L) g/dL PHOSPHORUS 3.3 mg/dL EGFR 9 (L) mL/min/1.73m2 POCT glucose [[id number]] (Abnormal) Collected:05/15/12 1140 GLUCOSE,POC SCREEN 173 (H) mg/dL Updated:05/15/12 1340 Urine microscopic only [[id number]] Collected:05/15/12 06 WBC 0-2 /hpf Updated:05/15/12630 RBC 1-5 /hpf EPITHELIAL 1-5 /lpf BACTERIA NONE SEEN Urinalysis [[id number]] (Abnormal) Collected:05/15/12 06 Specimen Information:Urine / Urine, Clean Catch Updated:05/15/12630 COLOR YELLOW CLARITY CLEAR SPECIFIC GRAVITY,URINE 1.020 LEUKOCYTE ESTERASE NEGATIVE NITRITE NEGATIVE UROBILINOGEN 0.2 mg/dL PROTEIN >300 (A) mg/dL PH,URINE 7.5 BLOOD TRACE (A) KETONES NEGATIVE mg/dL BILIRUBIN NEGATIVE GLUCOSE 100 (A) mg/dL Blood culture, 2 of 2 [[id number]] Collected:05/14/122141 Specimen Information:Blood Updated:05/15/12630 Specimen Description BLOOD CULTURE NO GROWTH AT THIS TIME CULTURE Result: Testing performed at [facility];[address] [place] [address] REPORT STATUS PENDING Blood culture, 1 of 2 [[id number]] Collected:05/14/121999 Specimen Information:Blood Updated:05/15/12629 Specimen Description BLOOD CULTURE NO GROWTH AT THIS TIME CULTURE Result: Testing performed at [facility];[address] [place] [address] REPORT STATUS PENDING Basic metabolic panel [[id number]] (Abnormal) Collected:05/14/122243 Specimen Information:Blood Updated:05/14/122320 SODIUM 137 mmol/L POTASSIUM 3.3 (L) mmol/L CHLORIDE 95 (L) mmol/L CO2 31 mmol/L ANION GAP AGAP 15 mmol/L GLUCOSE 150 (H) mg/dL BUN 20 mg/dL CREATININE 4.42 (H) mg/dL BUN/CREAT 5 CALCIUM 7.4 (L) mg/dL EGFR 15 (L) mL/min/1.73m2 Glycohemoglobin A1c [[id number]] (Abnormal) Collected:05/14/122243 Specimen Information:Blood Updated:05/14/122313 HEMOGLOBIN A1C 6.0 % ESTIMATED AVG GLUCOSE 126 (H) mg/dL CBC w/auto diff (reflex to manual) [[id number]] (Abnormal) Collected:05/14/122243 Specimen Information:Blood Updated:05/14/122255 WBC 7.5 K/uL RBC 2.89 (L) M/uL HGB 8.6 (L) g/dL HCT 26.1 (L) % MCV 90.4 fl MCH 30.0 pg MCHC 33.1 g/dL RDW SD 47.7 fl PLT 199 K/uL MPV 7.2 fl DIFF TYPE AUTOMATED NEUTROPHILS 64.6 % LYMPHOCYTES 7.4 (L) % MONOCYTES 10.2 % EOSINOPHILS 17.6 (H) % BASOPHILS 0.2 % NEUTROPHILS ABS 4.8 K/uL LYMPHOCYTES ABS 0.6 (L) K/uL MONOCYTES ABS 0.8 K/uL EOSINOPHILS ABS 1.3 (H) K/uL BASOPHILS ABS 0.0 K/uL Sedimentation Rate (ESR) [[id number]] (Abnormal) Collected:05/14/121999 Specimen Information:Blood Updated:05/14/122055 ESR 61 (H) mm/Hr CBC with differential [[id number]] (Abnormal) Collected:05/14/121999 Specimen Information:Blood Updated:05/14/122037 WBC 8.5 K/uL RBC 3.04 (L) M/uL HGB 9.1 (L) g/dL HCT 27.2 (L) % MCV 89.3 fl MCH 29.9 pg MCHC 33.5 g/dL RDW SD 46.8 fl PLT 200 K/uL MPV 7.0 fl DIFF TYPE MANUAL Neutrophils Manual 73 % Bands 3 % Lymphocytes Manual 5 (L) % Monocytes Manual 9 % Eosinophils Manual 10 (H) % Neutrophils Absolute 6.1 K/uL Bands Manual 0.3 (H) K/uL Lymphocytes Absolute 0.4 (L) K/uL Monocytes Absolute 0.8 K/uL Eosinophils Absolute 0.9 (H) K/uL MORPHOLOGY 2+ Comprehensive metabolic panel [[id number]] (Abnormal) Collected:05/14/121999 Specimen Information:Blood Updated:05/14/122030 SODIUM 139 mmol/L POTASSIUM 3.2 (L) mmol/L CHLORIDE 95 (L) mmol/L CO2 31 mmol/L ANION GAP AGAP 16 mmol/L GLUCOSE 138 (H) mg/dL BUN 19 mg/dL CREATININE 4.31 (H) mg/dL BUN/CREAT 5 CALCIUM 7.6 (L) mg/dL TOTAL PROTEIN 7.0 g/dL Albumin 2.6 (L) g/dL GLOBULIN 4.4 g/dL A/G 0.6 (L) TBIL 0.4 mg/dL ALK PHOS 136 (H) U/L AST 31 U/L ALT 25 U/L EGFR 16 (L) mL/min/1.73m2 C-Reactive Protein [[id number]] (Abnormal) Collected:05/14/121999 Specimen Information:Blood Updated:05/14/122030 CRP 10.0 (H) mg/dL X-ray chest 1 view [[id number]] Collected:05/14/122245 Order Status:Completed Updated:05/14/122252 Narrative: ENRIQUE NOLASCO CHEST 1 VIEW HISTORY: 47 years. Male. Shortness of breath. TECHNIQUE: Single portable anterior view of the chest was obtained. COMPARISON: 04/10/2012 FINDINGS: Right-sided dialysis catheter tip located region superior vena cava. Heart is enlarged but stable in size. Mild pulmonary vascular congestion with mild interstitial edema. No pneumoth orax. No focal airspace disease or sizable pleural effusion. IMPRESSION: 1. Cardiomegaly with pulmonary vascular congestion and mild interstitial edema. Disposition: Home Condition: Stable Code Status: Full Code Discharge Instructions Diet renal Diet diabetic Activity as tolerated Physician communication order Order Comments: Remind patient for him to have HD every MWF. Follow up: [facility] [address] [facility] [address] Make an appointment in 1 week Sarita Escobar DO [address] [facility] [address] [facility] [address] Make an appointment on 05/26/2012 Current Discharge Medication List START taking these medications Details acetaminophen 650 MG TABS Take 650 mg by mouth every 6 (six) hours as needed for Pain or F ever (for pain scale 1 - 3, or fever). Qty: 30 tablet CONTINUE these medications which have NOT CHANGED Details albuterol (PROVENTIL) (2.5 MG/3ML) 0.083% nebulizer solution Take 2.5 mg by nebulization e very 6 (six) hours as needed. ALBUTEROL IN Inhale 2 puffs into the lungs daily. amlodipine (NORVASC) 10 MG tablet Take 1 tablet by mouth daily. Qty: 30 tablet, Refills: 1 Associated Diagnoses: Essential hypertension, benign citalopram (CELEXA) 20 MG tablet Take 20 mg by mouth daily. ergocalciferol (DRISDOL) 26578 UNITS capsule Take 1 capsule by mouth once a week. Qty: 3 capsule, Refills: 0 folic acid-vitamin b complex-vitamin c-csxorhij-owkk (DIALYVITE) 3 MG TABS Take 1 tablet b y mouth daily. levothyroxine (SYNTHROID, LEVOTHROID) 25 MCG tablet Take 1 tablet by mouth every morning b efore breakfast. Qty: 30 tablet, Refills: 0 omeprazole (PRILOSEC) 40 MG capsule Take 1 capsule by mouth 2 (two) times daily. Qty: 60 capsule, Refills: 1 Comments: BID for 1 month and then daily calcitRIOL (ROCALTROL) 0.25 MCG capsule Take 1 capsule by mouth daily. Qty: 30 capsule, Refills: 1 Associated Diagnoses: Secondary hyperparathyroidism (of renal origin) STOP taking these medications vancomycin (VANCOCIN) IVPB Comments: Reason for Stopping: hydrocodone-acetaminophen (VICODIN) 5-500 MG per tablet Comments: Reason for Stopping: Discharge took 45 minutes, to include final examination, discussion of admission, and prepa ration of prescriptions, instructions for on-going care, follow-up and documentation of disc harge summary. CRALEE BEJARANO MD 05/17/2012 10:08 AM Reji stratton in this encounter Medications at Time of [...] documented as of this encounter Progress Notes Sean Solorzano T - 05/17/2012 10:53 AM PSTFormatting of this note might be different from rodrigo ramires. Progress Notes by Sean Solorzano MD at 05/17/121052 Author: Sean Solorzano MD Service: Nephrology Author Type: Physician Filed: 05/17/12 3797 Date of Service: 05/17/121052 Status: Signed Disabilities Caregiver: Sean Solorzano MD (Physician) [facility] Service: NEPHROLOGY Progress Note Enrique Potter 47 y.o. [id number] male [facility] Hospital Day: LOS: 3 days SUBJECTIVE Patient seen and examined. ADMITTED WITH FEVER HISTORY OF PRESENT ILLNESS The patient is a 47 y.o. male with significant past medical history of end-stage renal dise ase, chronic skin rash, recent staph aureus and Streptococcus aeruginosa bacteremia, recent GI bleed who presents with recurrent Gram-positive bacteremia despite vancomycin. The patien stefanie has been receiving vancomycin after each hemodialysis since the end of March. He was doi ng well at the time of office followup on April 25, and was continued on vancomycin. He had a repeat hospitalization from April 30 through May 02 for GI bleed which was m anaged by Dr. Riddle. During that hospitalization, he underwent venous mapping for an upcomin g dialysis fistula placement, and was found to have multiple DVTs. The discharge summary fro m that hospitalization indicates that I was consulted, although I did not consult during her hospital episode and did not recall any in formal conversations about the patient's care du ring that period of time. The patient was continued on vancomycin after his discharge. He pr esented for elective hospitalization in May 06 for placement of a brachiobasilic fistul a and was subsequently discharged home again. The patient reports that he was feeling well at the time that he was in the hospital for hi s fistula placement, and also does not believe that he had any fevers when he presented with his GI bleed. He started having fevers approximately 2 days ago, without any other associat ed symptoms. He does note that he has developed some sinus congestion today. His has re cently been fighting a cold. He denies any cough, difficulty breathing, chest pain, nausea, vomiting, loss of appetite, diarrhea, dysuria, musculoskeletal pain, or skin pain. The rash on his skin has been improving over time, and he has been very good about avoiding scratchin g. He did scratch last evening because he was nervous coming to the hospital. DENIES ANY FEVER TODAY I called [place] [facility] and the blood culture on the did n ot show any growth, Dr. Escobar is going to wait till tomorrow morning and if the second blood culture is negative he may go home when I discuss with Dr. Escobar. DENIES N/V/D/F/SOB Past Medical History Diagnosis Date Hyperlipidemia Hypertension Diabetes mellitus type II Asthma Thyroid disease Anemia Abdominal pain, right upper quadrant 04/13/2012 DVT (deep venous thrombosis) Chronic kidney disease Dialysis patient GI bleed 04/30/2012 Past Surgical History Procedure Date Unlisted procedure arthroscopy Colonoscopy with egd 05/01/2012 Procedure: COLONOSCOPY W/ EGD; Surgeon: John Singleton MD; Location: [facility] ENDOSCOPY; Se rvice: Gastroenterology; Laterality: N/A; Av fistula placement 05/06/2012 Procedure: AV FISTULA; Surgeon: Osakr Meyer MD; Location: [facility] MAIN OR; Service: Vascul ar; Laterality: Left; Left arm possible right History Social History Marital Status: Spouse Name: N/A Number of Children: N/A Years of Education: N/A Occupational History Not on file. Social History Main Topics Smoking status: Never Smoker Smokeless tobacco: Never Used Alcohol Use: No Drug Use: No last used marijuana on 04/29/12 Sexually Active: Other Topics Concern Not on file Social History Narrative , LIVES WITH [employer]; KIDSUNEMPLOYED BEFORE WORKED AT [employer] NONE ETOH QUIT 15 YEARS AGODRUGS: USES METHAMPHETAMINES PER PATIENTF ATHER HAS COLON CANCER, HEART DISEASEMOTHER 15 YEARS AGONO FH KIDNEY PROBLEMS. No family history on file. Scheduled Medications amLODIPine 10 mg Oral Daily calcitRIOL 0.25 mcg Oral Daily citalopram 20 mg Oral Daily ergocalciferol 50,000 Units Oral Weekly heparin (porcine) Intracatheter Once in dialysis heparin (porcine) 1,000 Units Intravenous Once heparin (porcine) 5,000 Units Subcutaneous Q8H heparin (porcine) 500 Units Intravenous Once insulin aspart 0-3 Units Subcutaneous Nightly insulin aspart 0-6 Units Subcutaneous TID AC levothyroxine 25 mcg Oral QAM AC omeprazole 40 mg Oral BID sodium chloride 10 mL Intravenous Q8H vitamin B asovhnc-R-ofdkj acid 1 tablet Oral Daily DISCONTD: linezolid 600 mg Intravenous Q12H Continuous Infusions dextrose PRN Medications acetaminophen, acetaminophen, albuterol, albuterol, dextrose, dextrose, dextrose, glucagon, glucagon, hydrocodone-acetaminophen, hydrocodone-acetaminophen, insulin aspart, ondansetron , ondansetron, polyethylene glycol, zolpidem Allergy: Allergies Allergen Reactions Lisinopril Other (See Comments) "makes me sweat and knocked me out" Penicillins Other (See Comments) unknown OBJECTIVE Vital Signs: BP 125/65 | Pulse 74 | Temp(Src) 98.1 F (36.7 C) (Oral) | Resp 18 | Ht 1.702 m (5' 7") | Wt 83 kg (182 lb 15.7 oz) | BMI 28.66 kg/m2 | SpO2 100% I&O Detailed Table: I/O last 3 completed shifts: In: 3590 [P.O.:2190; I.V.:600; Other:800] Out: 3900 [Urine:100; Other:3800] Weight change: 4.2 kg (9 lb 4.2 oz) Hemodynamics Last 24hrs: Examination: Constitutional: Alert and oriented to person, place, and time. Appears well-developed and w ell-nourished. HEENT: Neck supple, no JVD, non icteric sclera. Cardiovascular: S1+ S2 no friction rub. LUNGS:: Clear breath sounds bilaterally, no wheezes and no rales. Abdominal: Soft, non tender on palpation, No distension and no mass. There is no rebound te nderness and no guarding. Musculoskeletal: No gross deformity, EXT: No pedal edema and pulses are palpable. Neurological: No gross focal motor neurologic deficits. Skin: Skin is warm and dry. rashes, better Psychiatric: AXOX3, mood and affect ok, memory seems to be intact. Lymph Nodes: Not Palpable PERMACATH PRESENT LEFT UPPER ARM AVF MATURING LABS: Microalbumen/Creatinine ratio: No results found for this basename: MALBRX, LABCREAU, LABMICR IRON: Lab Results Component Value Date IRON 55 04/02/2012 No results found for this basename: labprot, labmicr Lab Results Component Value Date FERRITIN 139 04/02/2012 LABIRON 38 04/02/2012 No results found for this basename: labprot CBC: Lab Results Component Value Date WBC 10.3 05/16/2012 RBC 2.95* 05/16/2012 HGB 9.1* 05/16/2012 HCT 27.1* 05/16/2012 MCV 91.7 05/16/2012 MCH 30.7 05/16/2012 MCHC 33.5 05/16/2012 RDW 46.8 05/16/2012 PLT 226 05/16/2012 MPV 7.6 05/16/2012 DIFFTYPE AUTOMATED 05/16/2012 CMP: Lab Results Component Value Date NA 135 05/16/2012 K 3.7 05/16/2012 CL 95* 05/16/2012 CO2 25 05/16/2012 ANIONGAP 18 05/16/2012 GLUF 106* 05/16/2012 BUN 37* 05/16/2012 CREATININE 6.86* 05/16/2012 BCR 5 05/14/2012 CA 7.5* 05/16/2012 CA 6.1* 04/02/2012 PROT 7.0 05/14/2012 ALB 2.5* 05/16/2012 GLOB 4.4 05/14/2012 BILITOT 0.4 05/14/2012 ALP 136* 05/14/2012 AST 31 05/14/2012 ALT 25 05/14/2012 EGFR 9* 05/16/2012 Magnesium: Lab Results Component Value Date MG 2.0 05/01/2012 Phosphorus: Lab Results Component Value Date PHOS 3.3 05/16/2012 PT/INR: Lab Results Component Value Date INR 1.1 05/06/2012 Troponin: Lab Results Component Value Date TROPONINI 0.06 04/05/2012 IMAGING X-ray Chest 1 View 05/14/2012 ENRIQUEDIANELYS POTTER XR CHEST 1 VIEW HISTORY: 47 years. Male. Shortness of breath. TECHN IQUE: Single portable anterior view of the chest was obtained. COMPARISON: 04/10/2012 FIN DINGS: Right-sided dialysis catheter tip located region superior vena cava. Heart is enlarge d but stable in size. Mild pulmonary vascular congestion with mild interstitial edema. No pn eumothorax. No focal airspace disease or sizable pleural effusion. IMPRESSION: 1. Cardiom egaly with pulmonary vascular congestion and mild interstitial edema. LEM LIST Active Problems: Rash and nonspecific skin eruption ESRD (end stage renal disease) on dialysis Febrile illness, acute Diabetes mellitus Asthma Bacteremia due to Gram-positive bacteria ASSESSMENT & PLAN ESRD DUE TO DIABETES AND HYPERTENSIVE NEPHROSCLEROSIS ON HD M-W- AT [facility] HD UNIT UNDER DR COOK ALL WORK UP FOR VASCULITIS NEGATIVE LAST ADM C3, C4 levels wnl, hep b/c NR, RF NEG, KAPPA/LAMBDA RATIO WNL, HIV NR RASHID/LAMBDA RATIO 1.89 ANCA, ANTI GBM neg RENAL BX : renal bx 04/10/2012 SHOWED ESRD WITH LOTS OF SCARRING ,He is s/p diagnostic kidn ey biopsy which shows advanced fibrotic changes with little chance of recovery. Specifically AIN is not demonstrated. Renal diet AVOID NSAIDS/ ADAM-2 INHIBITORS AVOID NEPHROTOXIC MEDS INCLUDING AMINOGLYCOSIDES/ IV CONTRAST Assess daily for need for hd Dose all meds for crcl less than 15 mls/min ANEMIA STABLE Hb: 9.1,9.2, 8.5 vs 6.4 DUE TO GI BLEED Hx PRBCs during last adm PANENDOSCOPY 05/01/2012 EPO AND IV IRON PER PROTOCOL IN HD UNIT Colonoscopy normal colonic mucosa throughout -diverticulosis, mild in degree, involving the sigmoid -hemorrhoids (internal), Large in size EGD 4 clean base ulcers at antrum, 3 to 7mm in size with no active bleeding signs. Hiatal herni a HTN WATCH BP CLOSELY FOR NOW NARCOTIC ABUSER INCLUDING METH, RECENTLY QUIT HYPERPHOSPHATEMIA LOW P DIET SECONDARY HYPERPARATHYROIDISM LAST PTH 255 GETTING IV HECTORAL DURING HD PER PROTOCOL VITAMIN D,25 HYDROXY <12 CONT VIT D 2000 unit po daily CASE DISCUSSED IN DETAIL WITH PATIENT ANSWERS ALL QUESTIONS IN DETAIL, VERBALIZES BRENDANAN JESSE S/P RENAL BX 04/10/2012 He is s/p diagnostic kidney biopsy which shows SEVERE NODULAR DM NEPHROPATHY, - SEVERE TUBU LAR ATROPHY AND INTERSTITIAL FIBROSIS. PATHOLOGIC DIAGNOSIS: KIDNEY, NEEDLE CORE BIOPSY: - SEVERE NODULAR AND GLOBAL GLOMERULOSCLEROSIS CONSISTENT WITH DIABETIC NEPHROPATHY. - HYPERTENSIVE VASCULAR CHANGES. - SEVERE TUBULAR ATROPHY AND INTERSTITIAL FIBROSIS. D/W DR BEJARANO PT TO CONT HD AT [facility] HD UNDER DR COOK upon D/C BC NEGATIVE DR ESCOBAR NOTES REVIEWED, ,HE D/Guille ZYVOX AND MAY GO HOME FROM HIM Time spend over 35 minutes of time spent evaluating the patient, reviewing the data, formul ating a plan and discussion with patient and hospitalist team, more than half of the time sp ent in counseling and coordination of care. SEAN SOLORZANO MD 05/17/2012 Stephenie Lockett - 05/17/2012 9:04 AM PST Progress Notes by Sarita Escobar DO at 05/17/12903 Author: Sarita Escobar DO Service: (none) Author Type: Physician Filed: 05/17/12911 Date of Service: 05/17/12903 Status: Signed Disabilities Caregiver: Sarita Escobar DO (Physician) [facility] Service: Infectious Disease Progress Note Hospital Day: LOS: 3 days Post-Op Day: * No surgery found * SUBJECTIVE Patient Summary: 47-year-old male with recent strep and stenosis and staphylococcal b acteremia presents with fever and gram-positive bacteremia while still receiving vancomycin. He has been started on Zyvox while awaiting final sensitivities of gram-positive cocci isol ated in blood cultures collected at his outpatient hemodialysis center. Blood cultures colle cted on admission remain negative so far. CC: Fevers, positive blood cultures Chart reviewed: No new events. Subjective The patient reports that he is feeling well, denies any fevers or chills. He would like to go home today. He specifically denies any cough, difficulty breathing, nausea, diarrhea, or abdominal pain. ROS No fever, chills sweats. No nausea, vomiting or diarrhea. No rashes or pruritis. No oral pa in. Scheduled Medications amLODIPine 10 mg Oral Daily calcitRIOL 0.25 mcg Oral Daily citalopram 20 mg Oral Daily ergocalciferol 50,000 Units Oral Weekly heparin (porcine) Intracatheter Once in dialysis heparin (porcine) 1,000 Units Intravenous Once heparin (porcine) 5,000 Units Subcutaneous Q8H heparin (porcine) 500 Units Intravenous Once insulin aspart 0-3 Units Subcutaneous Nightly insulin aspart 0-6 Units Subcutaneous TID AC levothyroxine 25 mcg Oral QAM AC omeprazole 40 mg Oral BID sodium chloride 10 mL Intravenous Q8H vitamin B uvdouhv-C-uqwac acid 1 tablet Oral Daily DISCONTD: linezolid 600 mg Intravenous Q12H Continuous Infusions dextrose PRN Medications acetaminophen, acetaminophen, albuterol, albuterol, dextrose, dextrose, dextrose, glucagon, glucagon, hydrocodone-acetaminophen, hydrocodone-acetaminophen, insulin aspart, ondansetron , ondansetron, polyethylene glycol, zolpidem OBJECTIVE Vital Signs: BP 125/65 | Pulse 74 | Temp(Src) 98.1 F (36.7 C) (Oral) | Resp 18 | Ht 1.702 m (5' 7") | Wt 83 kg (182 lb 15.7 oz) | BMI 28.66 kg/m2 | SpO2 100% Temp (24hrs), Av.4 F (36.9 C), Min:97.1 F (36.2 C), Max:99.5 F (37.5 C) Physical Exam Exam: Const: Vitals reviewed. No acute distress Skin: Nodular rash is unchanged, no edema ENT: No thrush. Lungs: CTAB, no rales or wheezes Heart: RRR, no murmur Abd: soft, NT, + bowel sounds DATA CBC: Lab Results Component Value Date WBC 10.3 05/16/2012 RBC 2.95* 05/16/2012 HGB 9.1* 05/16/2012 HCT 27.1* 05/16/2012 MCV 91.7 05/16/2012 MCH 30.7 05/16/2012 MCHC 33.5 05/16/2012 RDW 46.8 05/16/2012 PLT 226 05/16/2012 MPV 7.6 05/16/2012 DIFFTYPE AUTOMATED 05/16/2012 CMP: Lab Results Component Value Date NA 135 05/16/2012 K 3.7 05/16/2012 CL 95* 05/16/2012 CO2 25 05/16/2012 ANIONGAP 18 05/16/2012 GLUF 106* 05/16/2012 BUN 37* 05/16/2012 CREATININE 6.86* 05/16/2012 BCR 5 05/14/2012 CA 7.5* 05/16/2012 CA 6.1* 04/02/2012 PROT 7.0 05/14/2012 ALB 2.5* 05/16/2012 GLOB 4.4 05/14/2012 BILITOT 0.4 05/14/2012 ALP 136* 05/14/2012 AST 31 05/14/2012 ALT 25 05/14/2012 EGFR 9* 05/16/2012 Microbiology: Blood cultures x2 collected on admission are negative >48 hours. Outpatient c ultures collected during previous hemodialysis has a report that still shows gram-positive c occi and the preliminary section, but no growth reported when discussed with the micro-lab y tami. PROBLEM LIST Active Problems: Rash and nonspecific skin eruption ESRD (end stage renal disease) on dialysis Febrile illness, acute Diabetes mellitus Asthma Bacteremia due to Gram-positive bacteria ASSESSMENT & PLAN Patient Active Hospital Problem List: Rash and nonspecific skin eruption (04/03/2012) Stable, unlikely to be related to his fever. Febrile illness, acute (05/14/2012) The patient's fevers are unlikely related to his outpatient blood culture results, which may have represented a contaminant and has actually not had any growth despite the initial r eport of a positive Gram stain. The final report will need to be followed up, but repeat cul tures collected on arrival here prior to starting Zyvox has been negative in both sides bran ng it very unlikely that the outpatient culture result is clinically significant. His fevers have improved. Bacteremia due to Gram-positive bacteria (05/15/2012) The patient's previous bacteremia secondary to MSSA and streptococcus has been treated at this point with more than 4 weeks of adequate coverage. No further antibiotic therapy is ne eded. I have discontinued Zyvox. The patient is ready for discharge from infectious diseases standpoint. The patient should followup in our office during the week of May 26 to review final culture results. He was advised to check his temperature at least once every day and to call if he has any fevers g reater than 100. The patient expressed understanding. Code Status: Full Code SARITA ESCOBAR DO 05/17/2012 oneric Transaction, Dorinda ovider Unknown - 05/17/2012 5:13 AM PST Progress Notes by Carola Albrecht RN at 05/17/12512 Author: Carola Albrecht RN Service: (none) Author Type: Registered Nurse Filed: 05/17/12513 Date of Service: 05/17/12512 Status: Signed Disabilities Caregiver: Carola Albrecht RN (Registered Nurse) No acute changes from assessment. Pt. Slept well through out the night. Pt. Finished HD at 2200 with a total of 3000ml removed. Pt. Denies pain. Sean Willis - 05/16/2012 5:51 PM PSTFormatting of this note might be different from the origi nal. Progress Notes by Sean Solorzano MD at 05/16/121750 Author: Sean Solorzano MD Service: Nephrology Author Type: Physician Filed: 05/16/12 1800 Date of Service: 05/16/121750 Status: Signed Disabilities Caregiver: Sean Solorzano MD (Physician) [facility] Service: NEPHROLOGY Progress Note Enrique Potter 47 y.o. [id number] male [facility] Hospital Day: LOS: 2 days SUBJECTIVE Patient seen and examined. ADMITTED WITH FEVER HISTORY OF PRESENT ILLNESS The patient is a 47 y.o. male with significant past medical history of end-stage renal dise ase, chronic skin rash, recent staph aureus and Streptococcus aeruginosa bacteremia, recent GI bleed who presents with recurrent Gram-positive bacteremia despite vancomycin. The patien stefanie has been receiving vancomycin after each hemodialysis since the end of March. He was doi ng well at the time of office followup on April 25, and was continued on vancomycin. He had a repeat hospitalization from April 30 through May 02 for GI bleed which was m anaged by Dr. Riddle. During that hospitalization, he underwent venous mapping for an upcomin g dialysis fistula placement, and was found to have multiple DVTs. The discharge summary fro m that hospitalization indicates that I was consulted, although I did not consult during her hospital episode and did not recall any in formal conversations about the patient's care du ring that period of time. The patient was continued on vancomycin after his discharge. He pr esented for elective hospitalization in May 06 for placement of a brachiobasilic fistul a and was subsequently discharged home again. The patient reports that he was feeling well at the time that he was in the hospital for hi s fistula placement, and also does not believe that he had any fevers when he presented with his GI bleed. He started having fevers approximately 2 days ago, without any other associat ed symptoms. He does note that he has developed some sinus congestion today. His has re cently been fighting a cold. He denies any cough, difficulty breathing, chest pain, nausea, vomiting, loss of appetite, diarrhea, dysuria, musculoskeletal pain, or skin pain. The rash on his skin has been improving over time, and he has been very good about avoiding scratchin g. He did scratch last evening because he was nervous coming to the hospital. DENIES ANY FEVER TODAY I called [facility] and the blood culture on the did not show any gr owth, Dr. Escobar is going to wait till tomorrow morning and if the second blood culture is neg ative he may go home when I discuss with Dr. Escobar. Past Medical History Diagnosis Date Hyperlipidemia Hypertension Diabetes mellitus type II Asthma Thyroid disease Anemia Abdominal pain, right upper quadrant 04/13/2012 DVT (deep venous thrombosis) Chronic kidney disease Dialysis patient GI bleed 04/30/2012 Past Surgical History Procedure Date Unlisted procedure arthroscopy Colonoscopy with egd 05/01/2012 Procedure: COLONOSCOPY W/ EGD; Surgeon: John Singleton MD; Location: [facility] ENDOSCOPY; Se rvice: Gastroenterology; Laterality: N/A; Av fistula placement 05/06/2012 Procedure: AV FISTULA; Surgeon: Oskar Meyer MD; Location: [facility] MAIN OR; Service: Vascul ar; Laterality: Left; Left arm possible right History Social History Marital Status: Spouse Name: N/A Number of Children: N/A Years of Education: N/A Occupational History Not on file. Social History Main Topics Smoking status: Never Smoker Smokeless tobacco: Never Used Alcohol Use: No Drug Use: No last used marijuana on 04/29/12 Sexually Active: Other Topics Concern Not on file Social History Narrative , LIVES WITH [employer]; KIDSUNEMPLOYED BEFORE WORKED AT [employer] NONE ETOH QUIT 15 YEARS AGODRUGS: USES METHAMPHETAMINES PER PATIENTF ATHER HAS COLON CANCER, HEART DISEASEMOTHER 15 YEARS AGONO FH KIDNEY PROBLEMS. No family history on file. Scheduled Medications amLODIPine 10 mg Oral Daily calcitRIOL 0.25 mcg Oral Daily citalopram 20 mg Oral Daily ergocalciferol 50,000 Units Oral Weekly heparin (porcine) Intracatheter Once in dialysis heparin (porcine) 1,000 Units Intravenous Once heparin (porcine) 5,000 Units Subcutaneous Q8H heparin (porcine) 500 Units Intravenous Once insulin aspart 0-3 Units Subcutaneous Nightly insulin aspart 0-6 Units Subcutaneous TID AC levothyroxine 25 mcg Oral QAM AC linezolid 600 mg Intravenous Q12H omeprazole 40 mg Oral BID sodium chloride 10 mL Intravenous Q8H vitamin B booxqcl-J-flixl acid 1 tablet Oral Daily Continuous Infusions dextrose PRN Medications acetaminophen, acetaminophen, albuterol, albuterol, dextrose, dextrose, dextrose, glucagon, glucagon, hydrocodone-acetaminophen, hydrocodone-acetaminophen, insulin aspart, ondansetron , ondansetron, polyethylene glycol, zolpidem Allergy: Allergies Allergen Reactions Lisinopril Other (See Comments) "makes me sweat and knocked me out" Penicillins Other (See Comments) unknown OBJECTIVE Vital Signs: BP 122/58 | Pulse 78 | Temp(Src) 99.5 F (37.5 C) (Oral) | Resp 20 | Ht 1.702 m (5' 7") | Wt 81.2 kg (179 lb 0.2 oz) | BMI 28.04 kg/m2 | SpO2 97% I&O Detailed Table: I/O last 3 completed shifts: In: 2630 [P.O.:2260; I.V.:370] Out: 400 [Urine:400] Weight change: -2.262 kg (-4 lb 15.8 oz) Hemodynamics Last 24hrs: Examination: Constitutional: Alert [...] deficits. Skin: Skin is warm and dry. rashes, better Psychiatric: AXOX3, mood and affect ok, memory seems to be intact. Lymph Nodes: Not Palpable PERMACATH PRESENT LEFT UPPER ARM AVF MATURING LABS: IRON: Lab Results Component Value Date IRON 55 04/02/2012 No results found for this basename: labprot, labmicr Lab Results Component Value Date FERRITIN 139 04/02/2012 LABIRON 38 04/02/2012 No results found for this basename: labprot CBC: Lab Results Component Value Date WBC 10.3 05/16/2012 RBC 2.95* 05/16/2012 HGB 9.1* 05/16/2012 HCT 27.1* 05/16/2012 MCV 91.7 05/16/2012 MCH 30.7 05/16/2012 MCHC 33.5 05/16/2012 RDW 46.8 05/16/2012 PLT 226 05/16/2012 MPV 7.6 05/16/2012 DIFFTYPE AUTOMATED 05/16/2012 CMP: Lab Results Component Value Date NA 135 05/16/2012 K 3.7 05/16/2012 CL 95* 05/16/2012 CO2 25 05/16/2012 ANIONGAP 18 05/16/2012 GLUF 106* 05/16/2012 BUN 37* 05/16/2012 CREATININE 6.86* 05/16/2012 BCR 5 05/14/2012 CA 7.5* 05/16/2012 CA 6.1* 04/02/2012 PROT 7.0 05/14/2012 ALB 2.5* 05/16/2012 GLOB 4.4 05/14/2012 BILITOT 0.4 05/14/2012 ALP 136* 05/14/2012 AST 31 05/14/2012 ALT 25 05/14/2012 EGFR 9* 05/16/2012 Magnesium: Lab Results Component Value Date MG 2.0 05/01/2012 Phosphorus: Lab Results Component Value Date PHOS 3.3 05/16/2012 PT/INR: Lab Results Component Value Date INR 1.1 05/06/2012 Troponin: Lab Results Component Value Date TROPONINI 0.06 04/05/2012 IMAGING X-ray Chest 1 View 05/14/2012 ENRIQUE POTTER XR CHEST 1 VIEW HISTORY: 47 years. Male. Shortness of breath. TECHN IQUE: Single portable anterior view of the chest was obtained. COMPARISON: 04/10/2012 FIN DINGS: Right-sided dialysis catheter tip located region superior vena cava. Heart is enlarge d but stable in size. Mild pulmonary vascular congestion with mild interstitial edema. No pn eumothorax. No focal airspace disease or sizable pleural effusion. IMPRESSION: 1. Cardiom egaly with pulmonary vascular congestion and mild interstitial edema. LEM LIST Active Problems: Rash and nonspecific skin eruption ESRD (end stage renal disease) on dialysis Febrile illness, acute Diabetes mellitus Asthma Bacteremia due to Gram-positive bacteria ASSESSMENT & PLAN ESRD DUE TO DIABETES AND HYPERTENSIVE NEPHROSCLEROSIS ON HD M-- AT [facility] HD UNIT UNDER DR COOK ALL WORK UP FOR VASCULITIS NEGATIVE LAST ADM C3, C4 levels wnl, hep b/c NR, RF NEG, KAPPA/LAMBDA RATIO WNL, HIV NR RASHID/LAMBDA RATIO 1.89 ANCA, ANTI GBM neg RENAL BX : renal bx 04/10/2012 SHOWED ESRD WITH LOTS OF SCARRING ,He is s/p diagnostic kidn ey biopsy which shows advanced fibrotic changes with little chance of recovery. Specifically AIN is not demonstrated. Renal diet AVOID NSAIDS/ ADAM-2 INHIBITORS AVOID NEPHROTOXIC MEDS INCLUDING AMINOGLYCOSIDES/ IV CONTRAST Assess daily for need for hd Dose all meds for crcl less than 15 mls/min TOLERATING HD WELL ANEMIA STABLE Hb: 9.2, 8.5 vs 6.4 DUE TO GI BLEED Hx PRBCs during last adm PANENDOSCOPY 05/01/2012 Colonoscopy normal colonic mucosa throughout -diverticulosis, mild in degree, involving the sigmoid -hemorrhoids (internal), Large in size EGD 4 clean base ulcers at antrum, 3 to 7mm in size with no active bleeding signs. Hiatal herni a HTN WATCH BP CLOSELY FOR NOW NARCOTIC ABUSER INCLUDING METH, RECENTLY QUIT HYPERPHOSPHATEMIA LOW P DIET SECONDARY HYPERPARATHYROIDISM LAST PTH 255 GETTING IV HECTORAL DURING HD PER PROTOCOL VITAMIN D,25 HYDROXY <12 CONT VIT D 2000 unit po daily CASE DISCUSSED IN DETAIL WITH PATIENT ANSWERS ALL QUESTIONS IN DETAIL, VERBALIZES UNDERSTAN JESSE S/P RENAL BX 04/10/2012 He is s/p diagnostic kidney biopsy which shows SEVERE NODULAR DM NEPHROPATHY, - SEVERE TUBU LAR ATROPHY AND INTERSTITIAL FIBROSIS. PATHOLOGIC DIAGNOSIS: KIDNEY, NEEDLE CORE BIOPSY: - SEVERE NODULAR AND GLOBAL GLOMERULOSCLEROSIS CONSISTENT WITH DIABETIC NEPHROPATHY. - HYPERTENSIVE VASCULAR CHANGES. - SEVERE TUBULAR ATROPHY AND INTERSTITIAL FIBROSIS. D/W DR BEJARANO PT TO CONT HD AT [facility] HD UNDER DR COOK upon D/C Time spend over 35 minutes of time spent evaluating the patient, reviewing the data, formul ating a plan and discussion with patient and hospitalist team, more than half of the time sp ent in counseling and coordination of care. SEAN SOLORZANO MD 05/16/2012 Geetha Hu MD - 05/16/2012 10:12 AM PSTFormatting of this note might be different from the o riginal. Progress Notes by Carlee Bejarano MD at 05/16/12 1012 Author: Carlee Bejarano MD Service: (none) Author Type: Physician Filed: 05/16/12 1017 Date of Service: 05/16/12 1012 Status: Signed Disabilities Caregiver: Carlee Bejarano MD (Physician) [facility] Service: Hospitalist Progress Note Hospital Day: LOS: 2 days SUBJECTIVE The patient is not complaining of shortness of breath, cough, nausea, vomiting or diarr hea. Scheduled Medications amLODIPine 10 mg Oral Daily calcitRIOL 0.25 mcg Oral Daily citalopram 20 mg Oral Daily ergocalciferol 50,000 Units Oral Weekly heparin (porcine) 5,000 Units Subcutaneous Q8H levothyroxine 25 mcg Oral QAM AC linezolid 600 mg Intravenous Q12H omeprazole 40 mg Oral BID potassium chloride 10 mEq Oral Once sodium chloride 10 mL Intravenous Q8H vitamin B kxboqxr-P-fuwgy acid 1 tablet Oral Daily Continuous Infusions PRN Medications acetaminophen, acetaminophen, albuterol, albuterol, hydrocodone-acetaminophen, hydrocodone- acetaminophen, ondansetron, ondansetron, polyethylene glycol, zolpidem OBJECTIVE Vital Signs: BP 115/80 | Pulse 81 | Temp(Src) 100.2 F (37.9 C) (Oral) | Resp 18 | Ht 1.702 m (5' 7") | Wt 81.2 kg (179 lb 0.2 oz) | BMI 28.04 kg/m2 | SpO2 94% Patient Vitals for the past 24 hrs: BP Temp Temp src Pulse Resp SpO2 Weight 05/16/12 0743 115/80 mmHg 100.2 F (37.9 C) Oral 81 18 94 % - 05/16/12 0326 132/63 mmHg 98.9 F (37.2 C) Oral 80 18 96 % 81.2 kg (179 lb 0.2 oz) 05/16/12 0007 129/62 mmHg 100.4 F (38 C) Oral 87 18 96 % - 05/15/12 1938 134/66 mmHg 99.7 F (37.6 C) Oral 83 18 95 % - 05/15/12 1608 127/60 mmHg 98.5 F (36.9 C) Oral 82 18 99 % - 05/15/12 1142 126/59 mmHg 98.4 F (36.9 C) Oral 78 18 98 % - Physical Exam [vitalsreviewed. Constitutional: He is oriented to person, place, and time. No distress. Cardiovascular: Normal rate, regular rhythm and normal heart sounds. Pulmonary/Chest: Effort normal and breath sounds normal. No respiratory distress. He has no wheezes. He has no rales. He exhibits no tenderness. Abdominal: Soft. Bowel sounds are normal. He exhibits no distension and no mass. There is n o tenderness. There is no rebound and no guarding. Musculoskeletal: mild edema Neurological: He is alert and oriented to person, place, and time. Skin: Skin is dry. scaling noited DATA Results Procedure Component Value Units Date/Time CBC w/auto diff (reflex to manual) [[id number]] (Abnormal) Collected:05/16/12444 WBC 10.3 K/uL Updated:05/16/12608 RBC 2.95 (L) M/uL HGB 9.1 (L) g/dL HCT 27.1 (L) % MCV 91.7 fl MCH 30.7 pg MCHC 33.5 g/dL RDW SD 46.8 fl PLT 226 K/uL MPV 7.6 fl DIFF TYPE AUTOMATED NEUTROPHILS 64.5 % LYMPHOCYTES 7.1 (L) % MONOCYTES 8.5 % EOSINOPHILS 19.6 (H) % BASOPHILS 0.3 % NEUTROPHILS ABS 6.6 K/uL LYMPHOCYTES ABS 0.7 (L) K/uL MONOCYTES ABS 0.9 (H) K/uL EOSINOPHILS ABS 2.0 (H) K/uL BASOPHILS ABS 0.0 K/uL Renal function panel [[id number]] (Abnormal) Collected:05/16/12444 Specimen Information:Blood Updated:05/16/12550 SODIUM 135 mmol/L POTASSIUM 3.7 mmol/L CHLORIDE 95 (L) mmol/L CO2 25 mmol/L ANION GAP AGAP 18 mmol/L GLUCOSE 106 (H) mg/dL BUN 37 (H) mg/dL CREATININE 6.86 (H) mg/dL CALCIUM 7.5 (L) mg/dL Albumin 2.5 (L) g/dL PHOSPHORUS 3.3 mg/dL EGFR 9 (L) mL/min/1.73m2 POCT glucose [[id number]] (Abnormal) Collected:05/15/12 1140 GLUCOSE,POC SCREEN 173 (H) mg/dL Updated:05/15/12 1340 Urine microscopic only [[id number]] Collected:05/15/12 06 WBC 0-2 /hpf Updated:05/15/12 0631 RBC 1-5 /hpf EPITHELIAL 1-5 /lpf BACTERIA NONE SEEN Urinalysis [[id number]] (Abnormal) Collected:05/15/12 06 Specimen Information:Urine / Urine, Clean Catch Updated:05/15/12630 COLOR YELLOW CLARITY CLEAR SPECIFIC GRAVITY,URINE 1.020 LEUKOCYTE ESTERASE NEGATIVE NITRITE NEGATIVE UROBILINOGEN 0.2 mg/dL PROTEIN >300 (A) mg/dL PH,URINE 7.5 BLOOD TRACE (A) KETONES NEGATIVE mg/dL BILIRUBIN NEGATIVE GLUCOSE 100 (A) mg/dL Blood culture, 2 of 2 [[id number]] Collected:05/14/122141 Specimen Information:Blood Updated:05/15/12630 Specimen Description BLOOD CULTURE NO GROWTH AT THIS TIME CULTURE Result: Testing performed at [facility];[address] [place] [address] REPORT STATUS PENDING Blood culture, 1 of 2 [[id number]] Collected:05/14/121999 Specimen Information:Blood Updated:05/15/12629 Specimen Description BLOOD CULTURE NO GROWTH AT THIS TIME CULTURE Result: Testing performed at [facility];[address] [place] [address] REPORT STATUS PENDING Basic metabolic panel [[id number]] (Abnormal) Collected:05/14/122243 Specimen Information:Blood Updated:05/14/122320 SODIUM 137 mmol/L POTASSIUM 3.3 (L) mmol/L CHLORIDE 95 (L) mmol/L CO2 31 mmol/L ANION GAP AGAP 15 mmol/L GLUCOSE 150 (H) mg/dL BUN 20 mg/dL CREATININE 4.42 (H) mg/dL BUN/CREAT 5 CALCIUM 7.4 (L) mg/dL EGFR 15 (L) mL/min/1.73m2 Glycohemoglobin A1c [[id number]] (Abnormal) Collected:05/14/122243 Specimen Information:Blood Updated:05/14/122313 HEMOGLOBIN A1C 6.0 % ESTIMATED AVG GLUCOSE 126 (H) mg/dL CBC w/auto diff (reflex to manual) [[id number]] (Abnormal) Collected:05/14/122243 Specimen Information:Blood Updated:05/14/122255 WBC 7.5 K/uL RBC 2.89 (L) M/uL HGB 8.6 (L) g/dL HCT 26.1 (L) % MCV 90.4 fl MCH 30.0 pg MCHC 33.1 g/dL RDW SD 47.7 fl PLT 199 K/uL MPV 7.2 fl DIFF TYPE AUTOMATED NEUTROPHILS 64.6 % LYMPHOCYTES 7.4 (L) % MONOCYTES 10.2 % EOSINOPHILS 17.6 (H) % BASOPHILS 0.2 % NEUTROPHILS ABS 4.8 K/uL LYMPHOCYTES ABS 0.6 (L) K/uL MONOCYTES ABS 0.8 K/uL EOSINOPHILS ABS 1.3 (H) K/uL BASOPHILS ABS 0.0 K/uL Sedimentation Rate (ESR) [[id number]] (Abnormal) Collected:05/14/121999 Specimen Information:Blood Updated:05/14/122055 ESR 61 (H) mm/Hr CBC with differential [[id number]] (Abnormal) Collected:05/14/121999 Specimen Information:Blood Updated:05/14/122037 WBC 8.5 K/uL RBC 3.04 (L) M/uL HGB 9.1 (L) g/dL HCT 27.2 (L) % MCV 89.3 fl MCH 29.9 pg MCHC 33.5 g/dL RDW SD 46.8 fl PLT 200 K/uL MPV 7.0 fl DIFF TYPE MANUAL Neutrophils Manual 73 % Bands 3 % Lymphocytes Manual 5 (L) % Monocytes Manual 9 % Eosinophils Manual 10 (H) % Neutrophils Absolute 6.1 K/uL Bands Manual 0.3 (H) K/uL Lymphocytes Absolute 0.4 (L) K/uL Monocytes Absolute 0.8 K/uL Eosinophils Absolute 0.9 (H) K/uL MORPHOLOGY 2+ Comprehensive metabolic panel [[id number]] (Abnormal) Collected:05/14/121999 Specimen Information:Blood Updated:05/14/122030 SODIUM 139 mmol/L POTASSIUM 3.2 (L) mmol/L CHLORIDE 95 (L) mmol/L CO2 31 mmol/L ANION GAP AGAP 16 mmol/L GLUCOSE 138 (H) mg/dL BUN 19 mg/dL CREATININE 4.31 (H) mg/dL BUN/CREAT 5 CALCIUM 7.6 (L) mg/dL TOTAL PROTEIN 7.0 g/dL Albumin 2.6 (L) g/dL GLOBULIN 4.4 g/dL A/G 0.6 (L) TBIL 0.4 mg/dL ALK PHOS 136 (H) U/L AST 31 U/L ALT 25 U/L EGFR 16 (L) mL/min/1.73m2 C-Reactive Protein [[id number]] (Abnormal) Collected:05/14/121999 Specimen Information:Blood Updated:05/14/122030 CRP 10.0 (H) mg/dL X-ray chest 1 view [[id number]] Collected:05/14/122245 Order Status:Completed Updated:05/14/122252 Narrative: ENRIQUE POTTER XR CHEST 1 VIEW HISTORY: 47 years. Male. Shortness of breath. TECHNIQUE: Single portable anterior view of the chest was obtained. COMPARISON: 04/10/2012 FINDINGS: Right-sided dialysis catheter tip located region superior vena cava. Heart is enlarged but stable in size. Mild pulmonary vascular congestion with mild interstitial edema. No pneumoth orax. No focal airspace disease or sizable pleural effusion. IMPRESSION: 1. Cardiomegaly with pulmonary vascular congestion and mild interstitial edema. LEM LIST Active Problems: Rash and nonspecific skin eruption ESRD (end stage renal disease) on dialysis Febrile illness, acute Diabetes mellitus Asthma Bacteremia due to Gram-positive bacteria ASSESSMENT & PLAN Patient Active Hospital Problem List: Rash and nonspecific skin eruption (04/03/2012) ESRD (end stage renal disease) on dialysis (05/14/2012) Plan: He is on HD. Dr. Cook is on consult. Febrile illness, acute (05/14/2012) Assessment: Dr. Escobar's note have been noted. This could be from a viral infection. Diabetes mellitus (05/14/2012) Assessment: Blood sugars are controlled. Plan: We will put the patient on low dose SSI. Asthma (05/14/2012) Assessment: This is stable. Bacteremia due to Gram-positive bacteria (05/15/2012) Disposition: Possible discharge tomorrow. Code Status: Full Code CARLEE BEJARANO MD 05/16/2012 Stephenie Lockett - 05/16/2012 8:56 AM PST Progress Notes by Sarita Escobar DO at 05/16/12 0856 Author: Sarita Escobar DO Service: (none) Author Type: Physician Filed: 05/16/12 0915 Date of Service: 05/16/12855 Status: Addendum Disabilities Caregiver: Sarita Escobar DO (Physician) Related Notes: Original Note by Sarita Escobar DO (Physician) filed at 05/16/12 0977 [facility] Service: Infectious Disease Progress Note Hospital Day: LOS: 2 days Post-Op Day: * No surgery found * SUBJECTIVE Patient Summary: 47-year-old male with recent strep and stenosis and staphylococcal b acteremia presents with fever and gram-positive bacteremia while still receiving vancomycin. He has been started on Zyvox while awaiting final sensitivities of gram-positive cocci isol ated in blood cultures collected at his outpatient hemodialysis center. Blood cultures colle cted on admission remain negative so far. CC: Fevers, positive blood cultures Chart reviewed: No new events. Subjective The patient reports that he is feeling well, denies any fevers or chills. He has not had an y nausea or diarrhea. He denies cough and difficulty breathing. He has been avoiding scratch ing his skin denies any pruritus. ROS No fever, chills sweats. No nausea, vomiting or diarrhea. No rashes or pruritis. No oral pa in. Scheduled Medications amLODIPine 10 mg Oral Daily calcitRIOL 0.25 mcg Oral Daily citalopram 20 mg Oral Daily ergocalciferol 50,000 Units Oral Weekly heparin (porcine) 5,000 Units Subcutaneous Q8H levothyroxine 25 mcg Oral QAM AC linezolid 600 mg Intravenous Q12H omeprazole 40 mg Oral BID potassium chloride 10 mEq Oral Once sodium chloride 10 mL Intravenous Q8H vitamin B ugnvyjk-F-aebsz acid 1 tablet Oral Daily Continuous Infusions PRN Medications acetaminophen, acetaminophen, albuterol, albuterol, hydrocodone-acetaminophen, hydrocodone- acetaminophen, ondansetron, ondansetron, polyethylene glycol, zolpidem OBJECTIVE Vital Signs: BP 115/80 | Pulse 81 | Temp(Src) 100.2 F (37.9 C) (Oral) | Resp 18 | Ht 1.702 m (5' 7") | Wt 81.2 kg (179 lb 0.2 oz) | BMI 28.04 kg/m2 | SpO2 94% Temp (24hrs), Av.4 F (37.4 C), Min:98.4 F (36.9 C), Max:100.4 F (38 C) Physical Exam Exam: Const: Vitals reviewed. No acute distress Skin: Nodular rash is unchanged, no edema ENT: No thrush. Lungs: CTAB, no rales or wheezes Heart: RRR, no murmur Abd: soft, NT, + bowel sounds DATA CBC: Lab Results Component Value Date WBC 10.3 05/16/2012 RBC 2.95* 05/16/2012 HGB 9.1* 05/16/2012 HCT 27.1* 05/16/2012 MCV 91.7 05/16/2012 MCH 30.7 05/16/2012 MCHC 33.5 05/16/2012 RDW 46.8 05/16/2012 PLT 226 05/16/2012 MPV 7.6 05/16/2012 DIFFTYPE AUTOMATED 05/16/2012 CMP: Lab Results Component Value Date NA 135 05/16/2012 K 3.7 05/16/2012 CL 95* 05/16/2012 CO2 25 05/16/2012 ANIONGAP 18 05/16/2012 GLUF 106* 05/16/2012 BUN 37* 05/16/2012 CREATININE 6.86* 05/16/2012 BCR 5 05/14/2012 CA 7.5* 05/16/2012 CA 6.1* 04/02/2012 PROT 7.0 05/14/2012 ALB 2.5* 05/16/2012 GLOB 4.4 05/14/2012 BILITOT 0.4 05/14/2012 ALP 136* 05/14/2012 AST 31 05/14/2012 ALT 25 05/14/2012 EGFR 9* 05/16/2012 Microbiology: Blood cultures x2 collected on admission are negative so far. Await final ID and susceptibility of gram-positive cocci from outpatient dialysis cultures. PROBLEM LIST Active Problems: Rash and nonspecific skin eruption ESRD (end stage renal disease) on dialysis Febrile illness, acute Diabetes mellitus Asthma Bacteremia due to Gram-positive bacteria ASSESSMENT & PLAN Patient Active Hospital Problem List: Rash and nonspecific skin eruption (04/03/2012) Stable, unlikely to be related to his fever. Febrile illness, acute (05/14/2012) Differential diagnosis includes recurrent bacteremia, or viral syndrome. His positive blo od culture from the outpatient setting is still pending. If this is proven to be a coagulase -negative staph, we can resume his previously planned course of vancomycin as long as the cu ltures collected on admission to have no growth by tomorrow morning. Otherwise, antibiotics will be selected based on the identification and potential sources will need to be evaluated . Bacteremia due to Gram-positive bacteria (05/15/2012) Await identification and susceptibility. Blood cultures collected on arrival here remain negative, and were collected prior to the first dose of Zyvox. Addendum: Discussed with Dr. Solorzano. Blood cultures collected during hemodialysis as an outp atient have been no growth in both sets. There is no evidence of bacteremia at this time. Hi s course of vancomycin for his previous staph aureus bacteremia would have been completed wi th his last dose prior to this admission. No further antibiotics will be needed as long as t he blood cultures collected on the remain negative as of tomorrow morning. Anticipate d ischarge home tomorrow off antibiotics, with close followup. Code Status: Full Code SARITA ESCOBAR DO 05/16/2012 onversion Transaction, Dorinda ovider Unknown - 05/16/2012 5:15 AM PST Progress Notes by Carola Albrecht RN at 05/16/12514 Author: Carola Albrecht RN Service: (none) Author Type: Registered Nurse Filed: 05/16/12514 Date of Service: 05/16/12514 Status: Signed Disabilities Caregiver: Carola Albrecht RN (Registered Nurse) No changes from assessment. Pt. Slept through out the night. Pt. Denies pain and vital si gns were stable. Zoltan Gray [facility] - 05/15/2012 3:35 PM PSTFormatting of this note might be different from t barbie original. Progress Notes by Zoltan Garcia RN at 05/15/121534 Author: Zoltan Garcia RN Service: (none) Author Type: Registered Nurse Filed: 05/15/121534 Date of Service: 05/15/121534 Status: Signed Disabilities Caregiver: Zoltan Garcia RN (Registered Nurse) VSS. Pt. Resting quietly in bed. No acute observations. Will continue monitoring. Pt. Watching football most of the day and resting. Sowmya Daniels MD - 05/15/2012 3:23 PM PST Progress Notes by Sowmya Shaikh MD at 05/15/12 1523 Author: Sowmya Shaikh MD Service: Hospitalist Author Type: Physician Filed: 05/15/12 2541 Date of Service: 05/15/12 152 Status: Addendum Disabilities Caregiver: Sowmya Shaikh MD (Physician) Related Notes: Original Note by Sowmya Shaikh MD (Physician) filed at 05/15/12 1530 [facility] Service: Hospitalist Progress Note Enrique Potter 47 y.o. [id number] male [facility] Patient Summary: The patient is a 47 y.o. male with significant past medical history of end-stage renal disease, chronic skin rash, recent staph aureus and Streptococcus aerugin zach bacteremia, recent GI bleed who presents with recurrent Gram-positive bacteremia despite vancomycin Events Overnight: Patient seen and examine. No acute over night event. No chest pain, SOB, MARTINEZ. No cough ,whe amaury. Had no orthopnea or PND. No Abdominal pain or N/V,No diarrhea, dysuria,MARTINEZ,rash,dizzines s or any other complaints Scheduled Medications acetaminophen 1,000 mg Oral Once amLODIPine 10 mg Oral Daily calcitRIOL 0.25 mcg Oral Daily citalopram 20 mg Oral Daily ergocalciferol 50,000 Units Oral Weekly heparin (porcine) 2,000 Units Intravenous Once heparin (porcine) 5,000 Units Subcutaneous Q8H levothyroxine 25 mcg Oral QAM AC linezolid 600 mg Intravenous Q12H omeprazole 40 mg Oral BID potassium chloride 10 mEq Oral Once sodium chloride 10 mL Intravenous Q8H vitamin B hwnfbfc-A-ggftz acid 1 tablet Oral Daily DISCONTD: ergocalciferol 50,000 Units Oral Weekly DISCONTD: ergocalciferol 50,000 Units Oral Weekly DISCONTD: non fomulary Intravenous Once Continuous Infusions PRN Medications acetaminophen, acetaminophen, albuterol, albuterol, hydrocodone-acetaminophen, hydrocodone- acetaminophen, ondansetron, ondansetron, polyethylene glycol, zolpidem, DISCONTD: hydrocodon e-acetaminophen Allergy: Allergies Allergen Reactions Lisinopril Other (See Comments) "makes me sweat and knocked me out" Penicillins Other (See Comments) unknown OBJECTIVE Vital Signs: BP 126/59 | Pulse 78 | Temp(Src) 98.4 F (36.9 C) (Oral) | Resp 18 | Ht 1.702 m (5' 7") | Wt 81.8 kg (180 lb 5.4 oz) | BMI 28.24 kg/m2 | SpO2 98% Temp: [98.2 F (36.8 C)-101 F (38.3 C)] 98.4 F (36.9 C) (05/15 1142) BP: (126-161)/(59-72) 126/59 mmHg (05/15 1142) Heart Rate: [77-86] 78 (05/15 1142) Resp: [16-20] 18 (05/15 1142) SpO2: [97 %-100 %] 98 % (05/15 1142) Height: [170.2 cm (5' 7")] 170.2 cm (5' 7") (05/14 2237) Weight: [81.8 kg (180 lb 5.4 oz)-83.462 kg (184 lb)] 81.8 kg (180 lb 5.4 oz) (05/14 2237) BMI (Calculated): [28.3-28.9] 28.3 (05/14 2237) I&O Detailed Table: Intake/Output Summary (Last 24 hours) at 05/15/12 1524 Last data filed at 05/15/12 0838 Gross per 24 hour Intake 850 ml Output 300 ml Net 550 ml Hemodynamics Last 24hrs: Examination: Constitutional: Alert and oriented to person, place, and time. Appears well-developed and w ell-nourished. Cardiovascular: Normal rate, regular rhythm, normal heart sounds and intact distal pulses. Exam reveals no gallop and no friction rub. No murmur heard. Pulmonary/Chest: Effort normal and breath sounds normal. No stridor. No respiratory distres s. no wheezes. no rales. exhibits no tenderness. [...] and affect. Behavior is normal. Judgment normal. Laboratory: Glucose: Results Procedure Component Value Units Date/Time POCT glucose [[id number]] (Abnormal) Collected:05/15/12 1140 GLUCOSE,POC SCREEN 173 (H) mg/dL Updated:05/15/12 1340 Urine microscopic only [[id number]] Collected:05/15/12599 WBC 0-2 /hpf Updated:05/15/12630 RBC 1-5 /hpf EPITHELIAL 1-5 /lpf BACTERIA NONE SEEN Urinalysis [] (Abnormal) Collected:05/15/12599 Specimen Information:Urine / Urine, Clean Catch Updated:05/15/12630 COLOR YELLOW CLARITY CLEAR SPECIFIC GRAVITY,URINE 1.020 LEUKOCYTE ESTERASE NEGATIVE NITRITE NEGATIVE UROBILINOGEN 0.2 mg/dL PROTEIN >300 (A) mg/dL PH,URINE 7.5 BLOOD TRACE (A) KETONES NEGATIVE mg/dL BILIRUBIN NEGATIVE GLUCOSE 100 (A) mg/dL Blood culture, 2 of 2 [[id number]] Collected:05/14/122141 Specimen Information:Blood Updated:05/15/12630 Specimen Description BLOOD CULTURE NO GROWTH AT THIS TIME CULTURE Result: Testing performed at [facility];[address] [place] [address] REPORT STATUS PENDING Blood culture, 1 of 2 [[id number]] Collected:05/14/121999 Specimen Information:Blood Updated:05/15/12629 Specimen Description BLOOD CULTURE NO GROWTH AT THIS TIME CULTURE Result: Testing performed at [facility];[address] [place] [address] REPORT STATUS PENDING Basic metabolic panel [[id number]] (Abnormal) Collected:05/14/12 224 Specimen Information:Blood Updated:05/14/12 232 SODIUM 137 mmol/L POTASSIUM 3.3 (L) mmol/L CHLORIDE 95 (L) mmol/L CO2 31 mmol/L ANION GAP AGAP 15 mmol/L GLUCOSE 150 (H) mg/dL BUN 20 mg/dL CREATININE 4.42 (H) mg/dL BUN/CREAT 5 CALCIUM 7.4 (L) mg/dL EGFR 15 (L) mL/min/1.73m2 Glycohemoglobin A1c [[id number]] (Abnormal) Collected:05/14/122243 Specimen Information:Blood Updated:05/14/122313 HEMOGLOBIN A1C 6.0 % ESTIMATED AVG GLUCOSE 126 (H) mg/dL CBC w/auto diff (reflex to manual) [[id number]] (Abnormal) Collected:05/14/122243 Specimen Information:Blood Updated:05/14/122255 WBC 7.5 K/uL RBC 2.89 (L) M/uL HGB 8.6 (L) g/dL HCT 26.1 (L) % MCV 90.4 fl MCH 30.0 pg MCHC 33.1 g/dL RDW SD 47.7 fl PLT 199 K/uL MPV 7.2 fl DIFF TYPE AUTOMATED NEUTROPHILS 64.6 % LYMPHOCYTES 7.4 (L) % MONOCYTES 10.2 % EOSINOPHILS 17.6 (H) % BASOPHILS 0.2 % NEUTROPHILS ABS 4.8 K/uL LYMPHOCYTES ABS 0.6 (L) K/uL MONOCYTES ABS 0.8 K/uL EOSINOPHILS ABS 1.3 (H) K/uL BASOPHILS ABS 0.0 K/uL Sedimentation Rate (ESR) [[id number]] (Abnormal) Collected:05/14/121999 Specimen Information:Blood Updated:05/14/122055 ESR 61 (H) mm/Hr CBC with differential [[id number]] (Abnormal) Collected:05/14/121999 Specimen Information:Blood Updated:05/14/122037 WBC 8.5 K/uL RBC 3.04 (L) M/uL HGB 9.1 (L) g/dL HCT 27.2 (L) % MCV 89.3 fl MCH 29.9 pg MCHC 33.5 g/dL RDW SD 46.8 fl PLT 200 K/uL MPV 7.0 fl DIFF TYPE MANUAL Neutrophils Manual 73 % Bands 3 % Lymphocytes Manual 5 (L) % Monocytes Manual 9 % Eosinophils Manual 10 (H) % Neutrophils Absolute 6.1 K/uL Bands Manual 0.3 (H) K/uL Lymphocytes Absolute 0.4 (L) K/uL Monocytes Absolute 0.8 K/uL Eosinophils Absolute 0.9 (H) K/uL MORPHOLOGY 2+ Comprehensive metabolic panel [[id number]] (Abnormal) Collected:05/14/121999 Specimen Information:Blood Updated:05/14/122030 SODIUM 139 mmol/L POTASSIUM 3.2 (L) mmol/L CHLORIDE 95 (L) mmol/L CO2 31 mmol/L ANION GAP AGAP 16 mmol/L GLUCOSE 138 (H) mg/dL BUN 19 mg/dL CREATININE 4.31 (H) mg/dL BUN/CREAT 5 CALCIUM 7.6 (L) mg/dL TOTAL PROTEIN 7.0 g/dL Albumin 2.6 (L) g/dL GLOBULIN 4.4 g/dL A/G 0.6 (L) TBIL 0.4 mg/dL ALK PHOS 136 (H) U/L AST 31 U/L ALT 25 U/L EGFR 16 (L) mL/min/1.73m2 C-Reactive Protein [[id number]] (Abnormal) Collected:05/14/121999 Specimen Information:Blood Updated:05/14/122030 CRP 10.0 (H) mg/dL CBC: Lab Results Component Value Date WBC 7.5 05/14/2012 RBC 2.89* 05/14/2012 HGB 8.6* 05/14/2012 HCT 26.1* 05/14/2012 MCV 90.4 05/14/2012 MCH 30.0 05/14/2012 MCHC 33.1 05/14/2012 RDW 47.7 05/14/2012 PLT 199 05/14/2012 MPV 7.2 05/14/2012 DIFFTYPE AUTOMATED 05/14/2012 CMP: Lab Results Component Value Date NA 137 05/14/2012 K 3.3* 05/14/2012 CL 95* 05/14/2012 CO2 31 05/14/2012 ANIONGAP 15 05/14/2012 GLUF 150* 05/14/2012 BUN 20 05/14/2012 CREATININE 4.42* 05/14/2012 BCR 5 05/14/2012 CA 7.4* 05/14/2012 CA 6.1* 04/02/2012 PROT 7.0 05/14/2012 ALB 2.6* 05/14/2012 GLOB 4.4 05/14/2012 BILITOT 0.4 05/14/2012 ALP 136* 05/14/2012 AST 31 05/14/2012 ALT 25 05/14/2012 EGFR 15* 05/14/2012 Magnesium: Lab Results Component Value Date MG 2.0 05/01/2012 Phosphorus: Lab Results Component Value Date PHOS 5.4* 05/01/2012 PT/INR: Lab Results Component Value Date INR 1.1 05/06/2012 Last 3 Troponin: Lab Results Component Value Date TROPONINI 0.06 04/05/2012 TROPONINI 0.06 04/05/2012 TROPONINI 0.05 04/05/2012 ABG: Lab Results Component Value Date POCPH 7.148* 04/02/2012 POCPCO 23* 04/02/2012 POCPO2 171* 04/02/2012 POCHCO 8* 04/02/2012 POCTCO2 9* 04/02/2012 POCBD 21* 04/02/2012 POCSO2 99* 04/02/2012 X-ray Chest 1 View 05/14/2012 ENRIQUE POTTER XR CHEST 1 VIEW HISTORY: 47 years. Male. Shortness of breath. TECHN IQUE: Single portable anterior view of the chest was obtained. COMPARISON: 04/10/2012 FIN DINGS: Right-sided dialysis catheter tip located region superior vena cava. Heart is enlarge d but stable in size. Mild pulmonary vascular congestion with mild interstitial edema. No pn eumothorax. No focal airspace disease or sizable pleural effusion. IMPRESSION: 1. Cardiom egaly with pulmonary vascular congestion and mild interstitial edema. LEM LIST Active Problems: Rash and nonspecific skin eruption ESRD (end stage renal disease) on dialysis Febrile illness, acute Diabetes mellitus Asthma Bacteremia due to Gram-positive bacteria ASSESSMENT & PLAN 1.Gm +ve coccicemia suspect VRE as patient failed IV vancomycin Plan:continue with zyvox day 2 ,ID following 2.ESRD:on HD next HD due on Saturday and Iain White following. 3.HTN:well controlled and will continue with amlodipine. 4.DM2:Bg well controlled with diet only and Hba1c is 6.0 SOWMYA SHAIKH MD Juan Rucker - 05/15/2012 1:04 PM PST Progress Notes by Juan Cook MD at 05/15/12 1304 Author: Juan Cook MD Service: Nephrology Author Type: Physician Filed: 05/24/12 6229 Date of Service: 05/15/12 4183 Status: Signed Disabilities Caregiver: Juan Cook MD (Physician) [facility] Service: NEPHROLOGY Progress Note Enrique Potter 47 y.o. [id number] male [facility] Hospital Day: LOS: 1 day Patient Summary: The patient is a 47 y.o. male with significant past medical history of end -stage renal disease, chronic skin rash, recent staph aureus and Streptococcus aeruginosa ba cteremia, recent GI bleed who presents with recurrent Gram-positive bacteremia despite vanco mycin Events Overnight: Patient seen and examined. No acute over night event. No chest pain, SOB, MARTINEZ. No cough ,wheeze. Had no orthopnea or PND. No Abdominal pain or N/V ,No diarrhea, dysuria,MARTINEZ,rash,dizziness or any other complaints Past Medical History Diagnosis Date Hyperlipidemia Hypertension Diabetes mellitus type II Asthma Thyroid disease Anemia Abdominal pain, right upper quadrant 04/13/2012 DVT (deep venous thrombosis) Chronic kidney disease Dialysis patient GI bleed 04/30/2012 Past Surgical History Procedure Date Unlisted procedure arthroscopy Colonoscopy with egd 05/01/2012 Procedure: COLONOSCOPY W/ EGD; Surgeon: John Singleton MD; Location: [facility] ENDOSCOPY; Se rvice: Gastroenterology; Laterality: N/A; Av fistula placement 05/06/2012 Procedure: AV FISTULA; Surgeon: Oskar Meyer MD; Location: [facility] MAIN OR; Service: Vascul ar; Laterality: Left; Left arm possible right No family history on file. History Social History Marital Status: Spouse Name: N/A Number of Children: N/A Years of Education: N/A Occupational History Not on file. Social History Main Topics Smoking status: Never Smoker Smokeless tobacco: Never Used Alcohol Use: No Drug Use: No last used marijuana on 04/29/12 Sexually Active: Other Topics Concern Not on file Social History Narrative , LIVES WITH [employer]; KIDSUNEMPLOYED BEFORE WORKED AT [employer] NONE ETOH QUIT 15 YEARS AGODRUGS: USES METHAMPHETAMINES PER PATIENTF ATHER HAS COLON CANCER, HEART DISEASEMOTHER 15 YEARS AGONO FH KIDNEY PROBLEMS. PMH, PSH, SOCIAL H/O, HABITS, FAMILY H/O- REVIEWED Scheduled Medications acetaminophen 1,000 mg Oral Once amLODIPine 10 mg Oral Daily calcitRIOL 0.25 mcg Oral Daily citalopram 20 mg Oral Daily ergocalciferol 50,000 Units Oral Weekly heparin (porcine) 2,000 Units Intravenous Once heparin (porcine) 5,000 Units Subcutaneous Q8H levothyroxine 25 mcg Oral QAM AC linezolid 600 mg Intravenous Q12H omeprazole 40 mg Oral BID potassium chloride 10 mEq Oral Once sodium chloride 10 mL Intravenous Q8H vitamin B jrnfwfy-H-vwgku acid 1 tablet Oral Daily DISCONTD: ergocalciferol 50,000 Units Oral Weekly DISCONTD: ergocalciferol 50,000 Units Oral Weekly DISCONTD: non fomulary Intravenous Once Continuous Infusions PRN Medications acetaminophen, acetaminophen, albuterol, albuterol, hydrocodone-acetaminophen, hydrocodone- acetaminophen, ondansetron, ondansetron, polyethylene glycol, zolpidem, DISCONTD: hydrocodon e-acetaminophen Allergy: Allergies Allergen Reactions Lisinopril Other (See Comments) "makes me sweat and knocked me out" Penicillins Other (See Comments) unknown OBJECTIVE Vital Signs: BP 126/59 | Pulse 78 | Temp(Src) 98.4 F (36.9 C) (Oral) | Resp 18 | Ht 1.702 m (5' 7") | Wt 81.8 kg (180 lb 5.4 oz) | BMI 28.24 kg/m2 | SpO2 98% I&O Detailed Table: I/O last 3 completed shifts: In: 480 [P.O.:480] Out: 300 [Urine:300] Weight change: Hemodynamics Last 24hrs: Examination: APPEARANCE: The patient is a pleasant lying in no apparent distress. VITALS: Reviewed as listed. HEAD: NC/AT. EYES: Non-icteric sclera. +ve pale conjuctive ENT: Buccal mucosa is MOIST. NECK: Supple. No raised JVD. LUNGS: Clear to auscultation bilaterally. HEART: S1, S2, no pericardial rub noted. ABDOMEN: Full, soft, no tenderness. Bowel sounds are present. EXTREMITIES: no pedal edema noted. SKIN: Warm to touch. +VE RASH NEUROLOGIC: No gross focal motor deficit noted. PSYCH: The patient is alert and oriented x 3. ed LABS: Recent Results (from the past 24 hour(s)) CBC W/AUTO DIFF (REFLEX TO MANUAL) Collection Time 05/14/12 8:00 PM Component Value Range WBC 8.5 3.8 - 11.0 K/uL RBC 3.04 (*) 4.20 - 5.70 M/uL HGB 9.1 (*) 13.2 - 17.0 g/dL HCT 27.2 (*) 39.0 - 50.0 % MCV 89.3 80.0 - 100.0 fl MCH 29.9 27.0 - 34.0 pg MCHC 33.5 32.0 - 35.5 g/dL RDW SD 46.8 37 - 53 fl PLT 200 150 - 400 K/uL MPV 7.0 DIFF TYPE MANUAL Neutrophils Manual 73 40 - 75 % Bands 3 0 - 8 % Lymphocytes Manual 5 (*) 15 - 48 % Monocytes Manual 9 0 - 12 % Eosinophils Manual 10 (*) 0 - 7 % Neutrophils Absolute 6.1 1.9 - 7.4 K/uL Bands Manual 0.3 (*) 0 - 0.2 K/uL Lymphocytes Absolute 0.4 (*) 1.0 - 3.9 K/uL Monocytes Absolute 0.8 0 - 0.8 K/uL Eosinophils Absolute 0.9 (*) 0 - 0.5 K/uL MORPHOLOGY 2+ COMPREHENSIVE METABOLIC PANEL Collection Time 05/14/12 8:00 PM Component Value Range SODIUM 139 135 - 143 mmol/L POTASSIUM 3.2 (*) 3.5 - 4.9 mmol/L CHLORIDE 95 (*) 99 - 109 mmol/L CO2 31 23 - 32 mmol/L ANION GAP AGAP 16 5 - 20 mmol/L GLUCOSE 138 (*) 65 - 99 mg/dL BUN 19 8 - 25 mg/dL CREATININE 4.31 (*) 0.70 - 1.30 mg/dL BUN/CREAT 5 CALCIUM 7.6 (*) 8.5 - 10.2 mg/dL TOTAL PROTEIN 7.0 6.3 - 8.2 g/dL Albumin 2.6 (*) 3.6 - 5.0 g/dL GLOBULIN 4.4 1.3 - 4.9 g/dL A/G 0.6 (*) 1.0 - 2.4 TBIL 0.4 0.1 - 1.5 mg/dL ALK PHOS 136 (*) 35 - 115 U/L AST 31 10 - 45 U/L ALT 25 10 - 65 U/L EGFR 16 (*) >60 mL/min/1.73m2 BLOOD CULTURE Collection Time 05/14/12 8:00 PM Component Value Range Specimen Description BLOOD CULTURE NO GROWTH AT THIS TIME CULTURE Value: Testing performed at [facility];[address] [place] [address];[place] [address] REPORT STATUS PENDING C-REACTIVE PROTEIN Collection Time 05/14/12 8:00 PM Component Value Range CRP 10.0 (*) <0.5 mg/dL SEDIMENTATION RATE, AUTOMATED Collection Time 05/14/12 8:00 PM Component Value Range ESR 61 (*) 0 - 15 mm/Hr BLOOD CULTURE, SET 2 Collection Time 05/14/12 9:42 PM Component Value Range Specimen Description BLOOD CULTURE NO GROWTH AT THIS TIME CULTURE Value: Testing performed at [facility];[address] [place] [address];[place] [address] REPORT STATUS PENDING BASIC METABOLIC PANEL Collection Time 05/14/12 10:44 PM Component Value Range SODIUM 137 135 - 143 mmol/L POTASSIUM 3.3 (*) 3.5 - 4.9 mmol/L CHLORIDE 95 (*) 99 - 109 mmol/L CO2 31 23 - 32 mmol/L ANION GAP AGAP 15 5 - 20 mmol/L GLUCOSE 150 (*) 65 - 99 mg/dL BUN 20 8 - 25 mg/dL CREATININE 4.42 (*) 0.70 - 1.30 mg/dL BUN/CREAT 5 CALCIUM 7.4 (*) 8.5 - 10.2 mg/dL EGFR 15 (*) >60 mL/min/1.73m2 CBC W/AUTO DIFF (REFLEX TO MANUAL) Collection Time 05/14/12 10:44 PM Component Value Range WBC 7.5 3.8 - 11.0 K/uL RBC 2.89 (*) 4.20 - 5.70 M/uL HGB 8.6 (*) 13.2 - 17.0 g/dL HCT 26.1 (*) 39.0 - 50.0 % MCV 90.4 80.0 - 100.0 fl MCH 30.0 27.0 - 34.0 pg MCHC 33.1 32.0 - 35.5 g/dL RDW SD 47.7 37 - 53 fl PLT 199 150 - 400 K/uL MPV 7.2 DIFF TYPE AUTOMATED NEUTROPHILS 64.6 40 - 75 % LYMPHOCYTES 7.4 (*) 15 - 48 % MONOCYTES 10.2 0 - 12 % EOSINOPHILS 17.6 (*) 0 - 7 % BASOPHILS 0.2 0 - 2 % NEUTROPHILS ABS 4.8 1.9 - 7.4 K/uL LYMPHOCYTES ABS 0.6 (*) 1.0 - 3.9 K/uL MONOCYTES ABS 0.8 0 - 0.8 K/uL EOSINOPHILS ABS 1.3 (*) 0 - 0.5 K/uL BASOPHILS ABS 0.0 0 - 0.1 K/uL GLYCOHEMOGLOBIN A1C Collection Time 05/14/12 10:44 PM Component Value Range HEMOGLOBIN A1C 6.0 4.0 - 6.0 % ESTIMATED AVG GLUCOSE 126 (*) 65 - 99 mg/dL URINALYSIS (REFLEX TO MICRO) Collection Time 05/15/12 6:00 AM Component Value Range COLOR YELLOW CLARITY CLEAR SPECIFIC GRAVITY,URINE 1.020 1.001 - 1.035 LEUKOCYTE ESTERASE NEGATIVE NEGATIVE NITRITE NEGATIVE NEGATIVE UROBILINOGEN 0.2 <1.1 mg/dL PROTEIN >300 (*) NEGATIVE mg/dL PH,URINE 7.5 4.6 - 8.0 BLOOD TRACE (*) NEGATIVE KETONES NEGATIVE NEGATIVE mg/dL BILIRUBIN NEGATIVE NEGATIVE GLUCOSE 100 (*) NEGATIVE mg/dL URINE MICROSCOPIC ONLY Collection Time 05/15/12 6:00 AM Component Value Range WBC 0-2 0 - 5 /hpf RBC 1-5 0 - 5 /hpf EPITHELIAL 1-5 BACTERIA NONE SEEN NONE SEEN Imaging X-ray Chest 1 View 05/14/2012 EN[facility] TARIQ XR CHEST 1 VIEW HISTORY: 47 years. Male. Shortness of breath. TECHN IQUE: Single portable anterior view of the chest was obtained. COMPARISON: 04/10/2012 FIN DINGS: Right-sided dialysis catheter tip located region superior vena cava. Heart is enlarge d but stable in size. Mild pulmonary vascular congestion with mild interstitial edema. No pn eumothorax. No focal airspace disease or sizable pleural effusion. IMPRESSION: 1. Cardiom egaly with pulmonary vascular congestion and mild interstitial edema. LEM LIST Patient Active Problem List Diagnoses Type II or unspecified type diabetes mellitus without mention of complication, not stat ed as uncontrolled Amphetamine and other psychostimulant dependence, continuous Unspecified asthma Acute posthemorrhagic anemia Rash and nonspecific skin eruption Vitamin d deficiency Secondary hyperparathyroidism (of renal origin) Hypothyroidism Hypoalbuminemia MSSA (methicillin susceptible Staphylococcus aureus) infection Diabetes mellitus with ESRD (end-stage renal disease) Hyponatremia Obesity (BMI 30-39.9) Hypokalemia GI bleed Anemia due to blood loss HTN (hypertension) DVT of IJ and B/L cephalics ESRD (end stage renal disease) on dialysis Nodular type diabetic glomerulosclerosis ESRD (end stage renal disease) on dialysis Febrile illness, acute Diabetes mellitus Asthma Bacteremia due to Gram-positive bacteria ASSESSMENT & PLAN ESRD ON HD No need for hd today Assess daily for need for hd PLAN FOR NEXT HD IN AM Orders put in the chart Fluid restriction 1 litre/24 hours Strict I & O Daily RFP Renal diet Daily weights will help with subsequent hd with uf Dose all meds per protocol for ESRD on hd HTN CONTROLLED CONTINUE AMLODIPINE WATCH BP CLOSELY HYPERPHOSPHATEMIA LOW P DIET HYPOKALEMIA REPLACE TO KEEP k GREATER THAN 3.8 ANEMIA OF CKD EPOGEN ON HD TO KEEP HGB 10-11 DM-2 STRICT GLYCEMIC CONTROL BACTEREMIA ON ABX PER ID CASE DISCUSSED IN DETAIL WITH PATIENT/ HOSPITALIST, ANSWERS ALL QUESTIONS IN DETAIL, VERBAL IZES UNDERSTANDING JUAN COOK MD 05/15/2012 onversion Transactio n, Provider Unknown - 05/15/2012 6:53 AM PST Progress Notes by Carola Albrecht RN at 05/15/12652 Author: Carola Albrecht RN Service: (none) Author Type: Registered Nurse Filed: 05/15/12652 Date of Service: 05/15/12652 Status: Signed Disabilities Caregiver: Carola Albrecht RN (Registered Nurse) No acute changes during the night. Pt slept well and denied any pain. onver quique Transaction, Provider Unknown - 05/15/2012 2:05 AM PST Progress Notes by Carola Albrecht RN at 05/15/12204 Author: Carola Albrecht RN Service: (none) Author Type: Registered Nurse Filed: 05/15/12205 Date of Service: 05/15/12204 Status: Signed Disabilities Caregiver: Carola Albrecht RN (Registered Nurse) Notified Dr. Colbert about pt.s K+ level. onver quique Transaction, Provider Unknown - 05/14/2012 10:44 PM PST Progress Notes by Xavier Toro RPH at 05/14/122243 Author: Xavier Toro RPH Service: (none) Author Type: Pharmacist Filed: 05/14/122243 Date of Service: 05/14/122243 Status: Signed Disabilities Caregiver: Xavier Toro RPH (Pharmacist) Note ccl 21.2ml/min meds reviewed Pharmacy will follow [facility] 2244 docume nted in this encounter Plan of Treatment Not on filedocumented as of this encounter Procedures + +--------+ + + + | Procedure Name | Priori | Date/Time | Associated Diagnosis | Comments | | | ty | | | | + +--------+ + + + | XR CHEST 1 VIEW | Routin | 05/14/2012 | | Results for this | | | e | 10:30 PM | | procedure are in the | | | | PST | | results section. | + +--------+ + + + | CULTURE, BLOOD, 2ND | Timed | 05/14/2012 | | Results for this | | SPECIMEN (NON-ORD) | | 9:42 PM | | procedure are in the | | | | PST | | results section. | + +--------+ + + + | CULTURE, BLOOD | Timed | 05/14/2012 | | Results for this | | | | 8:00 PM | | procedure are in the | | | | PST | | results section. | + +--------+ + + + documented in this encounter Results XR Chest 1 Vw (05/14/2012 10:30 PM PST) + + | Specimen | + + | | + + + + + | Narrative | Performed At | + + + | [facility] POT[facility] XR CHEST 1 VIEW HISTORY: 47 years. Male. Shortness | | | of breath. TECHNIQUE: Single portable anterior view of the chest | | | was obtained. COMPARISON: 04/10/2012 FINDINGS: Right-sided | | | dialysis catheter tip located region superior vena cava. Heart is | | | enlarged but stable in size. Mild pulmonary vascular congestion with | | | mild interstitial edema. No pneumothorax. No focal airspace disease or | | | sizable pleural effusion. IMPRESSION: 1. Cardiomegaly with | | | pulmonary vascular congestion and mild interstitial edema. | | | | | + + + + + | Procedure Note | + + | Khalif Palm Conversion - 02/14/2019 4:18 AM PDT [facility] POTTERGAURAV CHEST 1 VIEW HISTORY:47 | | years. Male. Shortness of breath. TECHNIQUE: Single portable anterior view of the chest | | was obtained. COMPARISON:04/10/2012 FINDINGS:Right-sided dialysis catheter tip located | | region superior vena cava. Heart is enlarged but stable in size. Mild pulmonary vascular | | congestion with mild interstitial edema. No pneumothorax. No focal airspace disease or | | sizable pleural effusion. IMPRESSION:1. Cardiomegaly with pulmonary vascular congestion | | and mild interstitial edema. | | 10:47 PM | | | |COMPARISON: | |04/10/2012 | | | |FINDINGS: | |Right-sided dialysis catheter tip located region superior vena cava. Heart is enlarged but stable in size. Mild pulmonary vascular congestion with mild interstitial edema. No pneumoth orax. No focal airspace disease or sizable pleural effusion. | | | |IMPRESSION: | |1. Cardiomegaly with pulmonary vascular congestion and mild interstitial edema. | | | | | + + Culture, Blood, 2nd Specimen (05/14/2012 9:42 PM PST) + + | Specimen | + + | Blood specimen | | (specimen) | + + + + + | Narrative | Performed At | + + + | Specimen Description BLOOD, LINE DRAW | EXTERNAL LAB | | Testing performed at | | | [address];[place] [address] CULTURE | | | NO GROWTH IN 5 DAYS. | | | Testing performed at [facility];[address] [place] [address] | | | [facility];[place] [address] REPORT STATUS | | | 05/20/2012 FINAL | | + + + + +---------+ + + | Performing | Address | City/State/Zipcode | Phone Number | | Organization | | | | + +---------+ + + | EXTERNAL LAB | | | | + +---------+ + + Culture, Blood (05/14/2012 8:00 PM PST) + + | Specimen | + + | Blood specimen | | (specimen) | + + + + + | Narrative | Performed At | + + + | Specimen Description BLOOD CULTURE | EXTERNAL LAB | | NO GROWTH IN 5 DAYS. | | | Testing performed at [facility];[address] | | | [facility];[place] [address] REPORT STATUS | | | 05/20/2012 FINAL | | + + + + +---------+ + + | Performing | Address | City/State/Zipcode | Phone Number | | Organization | | | | + +---------+ + + | EXTERNAL LAB | | | | + +---------+ + + documented in this encounter Visit Diagnoses + + | Diagnosis | + + | Febrile illness, acute Fever, unspecified | + + | Diabetes mellitus with ESRD (end-stage renal disease) ([facility]) Type II or unspecified | | type diabetes mellitus with renal manifestations, not stated as uncontrolled | + + | ESRD (end stage renal disease) on dialysis (HCC) End stage renal disease | + + | Hypoalbuminemia Other disorders of plasma protein metabolism | + + | Vitamin D deficiency Unspecified vitamin D deficiency | + + | Type II or unspecified type diabetes mellitus without mention of complication, not | | stated as uncontrolled | + + | HTN (hypertension) Unspecified essential hypertension | + + | Amphetamine and other psychostimulant dependence, continuous | + + | DVT (deep venous thrombosis) (HCC) Acute venous embolism and thrombosis of | | unspecified deep vessels of lower extremity | + + | Bacteremia | + + | Hyperphosphatemia Disorders of phosphorus metabolism | + + | Anemia of chronic kidney failure Anemia in chronic kidney disease | + + | ESRD (end stage renal disease) (HCC) End stage renal disease | + + | Essential hypertension, benign | + + | Secondary hyperparathyroidism (of renal origin) | + + | Bacteremia due to Gram-positive bacteria Bacteremia | + + | Rash and nonspecific skin eruption Rash and other nonspecific skin eruption | + + | Hypokalemia Hypopotassemia | + + | Asthma Unspecified asthma | + + documented in this encounter
--- OUTSIDE RECORDS SUMMARY | ~2019-05-20 | XMS | Encounter Summary ---
Demographics + + + | Address | [address] | | | [place] [address] | + + + | Home Phone | | + + + | Preferred Language | Unknown | + + + | Marital Status | Unknown | + + + | Mandaeism Affiliation | [id number] | + + + | Race | Unknown | + + + | Ethnic Group | Unknown | + + + Author + + + | Author | [facility] | | | and [place] | + + + | Organization | [facility] | | | [...] Team Providers + +------+ + | Care Checkerer Hand Name | Role | Phone | + +------+ + PCP | Unavailable | + +------+ + Encounter Details +--------+ + + + + | Date | Type | Department | Care Team | Description | +--------+ + + + + | 03/30/ | Hospital | [facility] | Conversion | | | 2014 | Encounter | [facility] | Transaction, | | | | | CLINIC [address] | Provider Unknown | | | | | [facility] [place], [place] | | | | | | [address] | (Fax) | | | | | [phone] | | | +--------+ + + + [...] | EXTERNAL LAB: CBC | Routin | 03/30/2014 | | Results for this | | | e | 7:24 AM | | procedure are in the | | | | PDT | | results section. | + +--------+ + + + | MRSA NAAT | Timed | 03/30/2014 | | Results for this | | | | 7:24 AM | | procedure are in the | | | | PDT | | results section. | + +--------+ + + + | PTT | Routin | 03/30/2014 | | Results for this | | | e | 7:24 AM | | procedure are in the | | | | PDT | | results section. | + +--------+ + + + | PROTIME INR | Routin | 03/30/2014 | | Results for this | | | e | 7:24 AM | | procedure are in the | | | | PDT | | results section. | + +--------+ + + + | BASIC METABOLIC | Routin | 03/30/2014 | | Results for this | | PANEL | e | 7:24 AM | | procedure are in the | | | | PDT | | results section. | + +--------+ + + + documented in this encounter Results PTT (03/30/2014 7:24 AM PDT) + + + + + + | Component | Value | Ref Range | Performed | Pathologist | | | | | At | Signature | + + + + + + | aPTT, | 26Comment: Testing | 23 - 32 seconds | EXTERNAL | | | Patient | performed at [facility];[address] | | LAB | | | | [address];[place], [place] | | | | | | [address] | | | | + + + + + + + + | Specimen | + + | Blood specimen | | (specimen) | + + + +---------+ + + | Performing | Address | City/State/Zipcode | Phone Number | | Organization | | | | + +---------+ + + | EXTERNAL LAB | | | | + +---------+ + + Protime INR (03/30/2014 7:24 AM PDT) + + + + + [...] | | | | | performed at [facility];[address] | | | | | | [facility];[place], [place] | | | | | | [address] | | | | + + + [...] + +---------+ + + External Lab: CBC (03/30/2014 7:24 AM PDT) + + + + + + | Component | Value | Ref Range | Performed | Pathologist | | | | | At | Signature | + + + + + + | WBC | 5.5Comment: Testing | 3.8 - 11.0 K/uL | EXTERNAL | | | | performed at [facility];[address] | | LAB | | | | [address];[place] | | | | | | [address] | | | | + + + + + + | RED CELL | 3.83 (L)Comment: Testing | 4.20 - 5.70 | EXTERNAL | | | COUNT | performed at [facility];[address] | M/uL | LAB | | | | [address];[place] | | | | | | [address] | | | | + + + + + + | Hgb | 11.5 (L)Comment: Testing | 13.2 - 17.0 | EXTERNAL | | | | performed at [facility];[address] | g/dL | LAB | | | | [address];[place] | | | | | | [address] | | | | + + + + + + | Hematocrit, | 35.1 (L)Comment: Testing | 39.0 - 50.0 % | EXTERNAL | | | POC | performed at [facility];[address] | | LAB | | | | [address];[place] | | | | | | [address] | | | | + + + + + + | MCV | 91.8Comment: Testing | 80.0 - 100.0 fl | EXTERNAL | | | | performed at [facility];[address] | | LAB | | | | [address];[place] | | | | | | [address] | | | | + + + + + + | MCH | 30.2Comment: Testing | 27.0 - 34.0 pg | EXTERNAL | | | | performed at [facility];[address] | | LAB | | | | [address];[place] | | | | | | [address] | | | | + + + + + + | MCHC | 32.9Comment: Testing | 32.0 - 35.5 | EXTERNAL | | | | performed at [facility];[address] | g/dL | LAB | | | | [address];[place] | | | | | | [address] | | | | + + + + + + | RDW-CV | 54.3 (H)Comment: Testing | 37 - 53 fl | EXTERNAL | | | | performed at [facility];[address] | | LAB | | | | [address];[place] | | | | | | [address] | | | | + + + + + + | Platelet | 344Comment: Testing | 150 - 400 K/uL | EXTERNAL | | | Count | performed at [facility];[address] | | LAB | | | Plasma | [address];[place] | | | | | | [address] | | | | + + + + + + | MPV | 6.1Comment: Testing | fl | EXTERNAL | | | | performed at [facility];[address] | | LAB | | | | [address];[place] | | | | | | [address] | | | | + + + + + + | Differentia | AUTOMATEDComment: | | EXTERNAL | | | l Type | Testing performed at | | LAB | | | | [facility];[address];[place] [address] | | | | + + + + + + | % Segmented | 51.3Comment: Testing | % | EXTERNAL | | | | performed at [facility];[address] | | LAB | | | Neutrophils | [address];[place] | | | | | | [address] | | | | + + + + + + | % | 28.0Comment: Testing | % | EXTERNAL | | | Lymphocytes | performed at [facility];[address] | | LAB | | | | [address];[place] | | | | | | [address] | | | | + + + + + + | % Monocytes | 11.3Comment: Testing | % | EXTERNAL | | | | performed at [facility];[address] | | LAB | | | | [address];[place] | | | | | | [address] | | | | + + + + + + | % | 8.5Comment: Testing | % | EXTERNAL | | | Eosinophils | performed at [facility];[address] | | LAB | | | | [address];[place] | | | | | | [address] | | | | + + + + + + | % Basophils | 0.9Comment: Testing | % | EXTERNAL | | | | performed at [facility];[address] | | LAB | | | | [address];[place] | | | | | | [address] | | | | + + + + + + | Absolute | 2.8Comment: Testing | 1.9 - 7.4 K/uL | EXTERNAL | | | Segmented | performed at [facility];[address] | | LAB | | | Neutrophils | [address];[place] | | | | | | [address] | | | | + + + + + + | Absolute | 1.5Comment: Testing | 1.0 - 3.9 K/uL | EXTERNAL | | | Lymphocytes | performed at [facility];[address] | | LAB | | | | [address];[place] | | | | | | [address] | | | | + + + + + + | Absolute | 0.6Comment: Testing | 0 - 0.8 K/uL | EXTERNAL | | | Monocytes | performed at [facility];[address] | | LAB | | | | [address];[place] | | | | | | [address] | | | | + + + + + + | Absolute | 0.5Comment: Testing | 0 - 0.5 K/uL | EXTERNAL | | | Eosinophils | performed at [facility];[address] | | LAB | | | | [address];[place] | | | | | | [address] | | | | + + + + + + | Absolute | 0.0Comment: Testing | 0 - 0.1 K/uL | EXTERNAL | | | Basophils | performed at [facility];[address] | | LAB | | | | [address];[place] | | | | | | [address] | | | | + + + [...] + +---------+ + + Basic Metabolic Panel (03/30/2014 7:24 AM PDT) + + + + + + | Component | Value | Ref Range | Performed | Pathologist | | | | | At | Signature | + + + + + + | Na | 140Comment: Testing | 135 - 143 | EXTERNAL | | | | performed at [facility];[address] | mmol/L | LAB | | | | [address];[place] | | | | | | [address] | | | | + + + + + + | K | 4.8Comment: Testing | 3.5 - 4.9 | EXTERNAL | | | | performed at [facility];[address] | mmol/L | LAB | | | | [address];[place] | | | | | | [address] | | | | + + + + + + | Cl | 107Comment: Testing | 99 - 109 mmol/L | EXTERNAL | | | | performed at [facility];[address] | | LAB | | | | [address];[place] | | | | | | [address] | | | | + + + + + + | CO2 | 31Comment: Testing | 23 - 32 mmol/L | EXTERNAL | | | | performed at [facility];[address] | | LAB | | | | [address];[place] | | | | | | [address] | | | | + + + + + + | Anion Gap | 7Comment: Testing | 5 - 20 mmol/L | EXTERNAL | | | | performed at [facility];[address] | | LAB | | | | [address];[place] | | | | | | [address] | | | | + + + + + + | Glucose, | 89Comment: Testing | 65 - 99 mg/dL | EXTERNAL | | | Fasting | performed at [facility];[address] | | LAB | | | | [address];[place] | | | | | | [address] | | | | + + + + + + | BUN | 6 (L)Comment: Testing | 8 - 25 mg/dL | EXTERNAL | | | | performed at [facility];[address] | | LAB | | | | [address];[place] | | | | | | [address] | | | | + + + + + + | Creatinine | 4.60 (H)Comment: Testing | 0.70 - 1.30 | EXTERNAL | | | | performed at [facility];[address] | mg/dL | LAB | | | | [address];[place] | | | | | | [address] | | | | + + + + + + | BUN/Creatin | 1Comment: Testing | | EXTERNAL | | | ine Ratio | performed at [facility];[address] | | LAB | | | | [address];[place] | | | | | | [address] | | | | + + + + + + | Calcium | 8.5Comment: Testing | 8.5 - 10.2 | EXTERNAL | | | | performed at [facility];[address] | mg/dL | LAB | | | | [address];[place] | | | | | | [address] | | | | + + + + + + | Estimated | 14 (L)Comment: GFR <60: | mL/min/1.73m2 | EXTERNAL [...] | | | | | | at [facility];[address];[place] [address] | | | | + + + + + + + + | Specimen | + + | Blood specimen | | (specimen) | + + + +---------+ + + | Performing | Address | City/State/Zipcode | Phone Number | | Organization | | | | + +---------+ + + | EXTERNAL LAB | | | | + +---------+ + + MRSA NAAT (03/30/2014 7:24 AM PDT) + + | Specimen | + + | | + + + + + | Narrative | Performed At | + + + | [facility](NOSE) | EXTERNAL LAB | | Testing performed at [address];[place] [address] MRSA PCR | | | NEGATIVE Testing performed at | | | [address];[place] [address] | | + + + + +---------+ + + | Performing | Address | City/State/Zipcode | Phone Number | | Organization | | | | + +---------+ + + | EXTERNAL LAB | | | | + +---------+ + + documented in this encounter Visit Diagnoses Not on filedocumented in this encounter"
--- OUTSIDE RECORDS SUMMARY | ~2019-05-20 | XMS | Encounter Summary ---
Demographics + + + | Address | [address] | | | [place] [address] | + + + | Home Phone | | + + + | Preferred Language | Unknown | + + + | Marital Status | Unknown | + + + | Jainism Affiliation | [id number] | + + + | Race | Unknown | + + + | Ethnic Group | Unknown | + + + Author + + + | Author | [facility] | | | and [place] | + + + | Organization | [facility] | | | and [place] | + + + | Address | Unknown | + + + | Phone | Unavailable | + + + Support + + +---------+ + | Name | Relationship | Address | Phone | + + +---------+ + | Shyanne Romy | ECON | Unknown | | + + +---------+ + | Momo Arenas | ECON | Unknown | | + + +---------+ + Care Team Providers + +------+ + | Care Rn Wound Care Name | Role | Phone | + +------+ + PCP | Unavailable | + +------+ + Encounter Details +--------+ + + + + | Date | Type | Department | Care Team | Description | +--------+ + + + + | 11/09/ | Hospital | [facility] | Conversion | End stage renal | | 2014 | Encounter | [facility] | Transaction, | disease (HCC); Other | | | | [address] | Provider Unknown | complications due | | | | [place], [place] | [phone] | to other vascular | | | | [address] | | device, implant, and | | | | [phone] | Uriel Sawyer, | graft (HCC) | | | | | [address] | | | | | | [place], [place] | | | | | | [address] | | | | | | | [...] 11/09/132031 Date of Service: 11/09/132030 Status: Signed Wastewater Supervisor: Tisha Vaughan RN (Registered Nurse) Meets discharge criteria. Right chest site benign with no ooze or hematoma. Discharge instr uctions given to patient and . All questions answered and understanding stated. Transpor gela via wheelchair to [facility] for treatment for K 5.[address] Timmons. onver quique Transaction, Provider Unknown - 11/09/2013 8:20 PM PDT Nurse Progress Note by Tisha Vaughan RN at 11/09/132019 Author: Tisha Vaughan RN Service: (none) Author Type: Registered Nurse Filed: 11/09/132019 Date of Service: 11/09/132019 Status: Signed Wastewater Supervisor: Tisha Vaughan RN (Registered Nurse) Small amount ooze from upper dialysis cath insertion site. Light pressure dressing applied. docume nted in this encounter Plan of [...] Successful | | | placement of a 14.5-[place] dual-lumen 19-cm tunneled hemodialysis | | | catheter with its tip in the upper portion of the right atrium without | | | incidence. 48226, 85345, 53546 | | + + + + + + | Narrative | Performed At | + + + | [facility] INSERTION 11/09/2013 6:41 | | | PM HISTORY: 48 years. Male. Clotted left arm AV graft 585.6. | | | PROCEDURE: 1. Sonography of the lower neck veins. 2. | | | Sonographic guidance for access into the right external jugular | | | vein. 3. Placement of 19 cm, 14.5-[place] dual-lumen tunneled | | | palindrome hemodialysis [...] conscious sedation and independent | | | snf supervision of the conscious sedation was performed [...] records. 3. Upper chest radiograph shows dual-lumen, 14.5-[place], | | | 19-cm, tunneled dialysis catheter [...] | micropuncture needle and exchanged for a 4-[place] micropuncture sheath | | | over a 0.018 wire. Skin in the infraclavicular region was | | | infiltrated with 1% lidocaine and a 5-mm skin incision was made. A | | | 14.5-[place], dual-lumen, 19-cm tunneled hemodialysis catheter was | | | placed a subcutaneous tunnel using a metallic tunneler. The 4-[place]er | | | sheath was exchanged for a 0.035, 3-mm J-wire with its tip in the | | | right atrium under fluoroscopy guidance. The skin and subcutaneous | | | tract was dilated using at 12 and 14-[place] facial dilators. A | | | 15-[place] peel-away sheath was placed over the wire [...] Palm - 02/06/2019 10:59 AM PDT [facility] | | INSERTION11/09/2013 6:41 PM HISTORY:48 years. Male. Clotted left arm AV graft 585.6. | | PROCEDURE: 1. Sonography of the lower neck veins.2. Sonographic guidance for access | | into the right external jugular vein.3. Placement of 19 cm, 14.5-[place] dual-lumen | | tunneled palindrome hemodialysis catheter [...] adequate | | conscious sedation and independent snf supervision of the conscious sedation | | [...] | | Upper chest radiograph shows dual-lumen, 14.5-[place], 19-cm, tunneled dialysis catheter | | with [...] a micropuncture needle and exchanged for a 4-[place] micropuncture sheath over a | | 0.018 wire. Skin in the infraclavicular region was infiltrated with 1% lidocaine and a | | 5-mm skin incision was made. A 14.5-[place], dual-lumen, 19-cm tunneled hemodialysis | | catheter was placed a subcutaneous tunnel using a metallic tunneler. The 4-[place] | | sheath was exchanged for a 0.035, 3-mm J-wire with its tip in the right atrium under | | fluoroscopy guidance. The skin and subcutaneous tract was dilated using at 12 and | | 14-[place] facial dilators. A 15-[place] peel-away sheath was placed over the wire [...] veins.2. | | Successful placement of a 14.5-[place] dual-lumen 19-cm tunneled hemodialysis catheter | | with its tip in the upper portion of the right atrium without incidence. 95266, 86622, | | 26279 | |IMPRESSION: | | | |1. Sonography of the lower neck veins. | |2. Successful placement of a 14.5-[place] dual-lumen 19-cm tunneled hemodialysis catheter w ith its tip in the upper portion of the right atrium without incidence. | | | |83568, 76377, 48684 | | | | | + + US Guided Vascular Access (11/09/2013 7:36 PM PDT) + + | Specimen | + + | | + + + + + | Impressions | Performed At | + + + | 1. Sonography of the lower neck veins. 2. Successful | | | placement of a 14.5-[place] dual-lumen 19-cm tunneled hemodialysis | | | catheter with its tip in the upper portion of the right atrium without | | | incidence. 64602, 62466, 24080 | | + + + + + + | Narrative | Performed At | + + + | [facility] 11/09/2013 6:41 | | | PM HISTORY: 48 years. Male. Clotted left arm AV graft 585.6. | | | PROCEDURE: 1. Sonography of the lower neck veins. 2. | | | Sonographic guidance for access into the right external jugular | | | vein. 3. Placement of 19 cm, 14.5-[place] dual-lumen tunneled | | | palindrome hemodialysis [...] conscious sedation and independent | | | snf supervision of the conscious sedation was performed [...] records. 3. Upper chest radiograph shows dual-lumen, 14.5-[place], | | | 19-cm, tunneled dialysis catheter [...] | micropuncture needle and exchanged for a 4-[place] micropuncture sheath | | | over a 0.018 wire. Skin in the infraclavicular region was | | | infiltrated with 1% lidocaine and a 5-mm skin incision was made. A | | | 14.5-[place], dual-lumen, 19-cm tunneled hemodialysis catheter was | | | placed a subcutaneous tunnel using a metallic tunneler. The 4-[place] | | | sheath was exchanged for a 0.035, 3-mm J-wire with its tip in the | | | right atrium under fluoroscopy guidance. The skin and subcutaneous | | | tract was dilated using at 12 and 14-[place] facial dilators. A | | | 15-[place] peel-away sheath was placed over the wire [...] Conversion - 02/06/2019 10:59 AM PDT [facility] | | INSERTION11/09/2013 6:41 PM HISTORY:48 years. Male. Clotted left arm AV graft 585.6. | | PROCEDURE: 1. Sonography of the lower neck veins.2. Sonographic guidance for access | | into the right external jugular vein.3. Placement of 19 cm, 14.5-[place] dual-lumen | | tunneled palindrome hemodialysis catheter [...] adequate | | conscious sedation and independent snf supervision of the conscious sedation | | [...] | | Upper chest radiograph shows dual-lumen, 14.5-[place], 19-cm, tunneled dialysis catheter | | with [...] a micropuncture needle and exchanged for a 4-[place] micropuncture sheath over a | | 0.018 wire. Skin in the infraclavicular region was infiltrated with 1% lidocaine and a | | 5-mm skin incision was made. A 14.5-[place], dual-lumen, 19-cm tunneled hemodialysis | | catheter was placed a subcutaneous tunnel using a metallic tunneler. The 4-[place] | | sheath was exchanged for a 0.035, 3-mm J-wire with its tip in the right atrium under | | fluoroscopy guidance. The skin and subcutaneous tract was dilated using at 12 and | | 14-[place] facial dilators. A 15-[place] peel-away sheath was placed over the wire [...] veins.2. | | Successful placement of a 14.5-[place] dual-lumen 19-cm tunneled hemodialysis catheter | | with its tip in the upper portion of the right atrium without incidence. 54291, 18369, | | 68193 | |IMPRESSION: | | | |1. Sonography of the lower neck veins. | |2. Successful placement of a 14.5-[place] dual-lumen 19-cm tunneled hemodialysis catheter w ith its tip in the upper portion of the right atrium without incidence. | | | |25891, 42031, 21929 | | | | | + + Potassium (11/09/2013 6:30 PM PDT) + + + + + + | Component | Value | Ref Range | Performed | Pathologist | | | | | At | Signature | + + + + + + | K | 5.6 (H)Comment: Testing | 3.5 - 4.9 | EXTERNAL | | | | performed at [facility];888 | mmol/L | LAB | | | | [place] | | | | | | [address] | | | | + + + [...] EXTERNAL LAB | | Testing performed at [facility];[address] [place] [address];[place] [address] MRSA PCR | | | NEGATIVE Testing performed at | | | [address];[place] [address] | | + + + + +---------+ [...] graft | + + documented in this encounter"
--- OUTSIDE RECORDS SUMMARY | ~2019-05-20 | XMS | Encounter Summary ---
Demographics + + + | Address | [address] | | | [place] [address] | + + + | Home Phone | | + + + | Preferred Language | Unknown | + + + | Marital Status | Unknown | + + + | Roman Catholic Affiliation | [id number] | + + + | Race | Unknown | + + + | Ethnic Group | Unknown | + + + Author + + + | Author | [facility] | | | and [place] | + + + | Organization | [facility] | | | [...] Team Providers + +------+ + | Care Pedigree Researcher Name | Role | Phone | + +------+ + PCP | Unavailable | + +------+ + Encounter Details +--------+ + + + + | Date | Type | Department | Care Team | Description | +--------+ + + + + | 10/03/ | Hospital | [facility] | Arlin Galdino Saavedra | Adult failure to | | 2012 - | Encounter | [facility] | MD [address] | thrive; PUD (peptic | | | | CARE FLOOR [address] | ulcer disease); | | 10/15/ | | [address] | [place] [address] | Secondary | | 2012 | | [place], [place] | [phone] | hyperparathyroidism | | | | [address] | | (of renal origin) | | | | [phone] | | ([facility]); Vitamin d | | | | | | deficiency; C. 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 ESRD (end-stage | | | | | | renal disease) | | | | | | ([facility]); HTN | | | | | | (hypertension); | | | | | | Bacteremia; | | | | | | Staphylococcus | | | | | | aureus bacteremia | | | | | | with sepsis ([facility]); | | | | | | Fever; | | | | | | Hypoalbuminemia; End | | | | | | stage renal failure | | | | | | on dialysis ([facility]); | | | | | | Obesity (BMI | | | | | | 30-39.9); | | | | | | Hyponatremia; | | | | | | Malnutrition of | | | | | | moderate degree | | | | | | ([facility]); Weakness | | | | | | generalized; | | | | | | Incomplete RBBB; | | | | | | Anemia of chronic | | | | | | kidney failure; ESRD | | | | | | (end stage renal | | | | | | disease) on dialysis | | | | | | ([facility]); Gout; | | | | | | Hyperphosphatemia; | | | | | | Hypothyroidism | +--------+ + + + + Social [...] documented as of this encounter Discharge Summaries Vikram Chandra MD - 10/15/2012 9:02 AM PDT Discharge Summaries by Vikram Chandra MD at 10/15/12901 Author: Vikram Chandra MD Service: Hospitalist Author Type: Physician Filed: 10/15/12905 Date of Service: 10/15/12901 Status: Signed Lithographic Printing Machinist: Vikram Chandra MD (Physician) [facility] Service: Hospitalist Physician Discharge Summary Pt: Carol Potter AGE/SEX: 47 y.o. male ROOM: [facility]5/6605-1 PCP: [facility] : 1965 Admit date: 10/03/2012 Discharge date and time: 10/15/2012 9:02 AM Admitting Physician: Galdino Oliveros MD Discharge Physician: Vikram Chandra MD Consults: Dr. Franklin Allen Primary Discharge Diagnoses: Adult failure to thrive [783.7] Bacteremia [790.7] Secondary hyperparathyroidism (of renal origin) [588.81] Hyperphosphatemia [275.3] Hypoalbuminemia [273.8] PUD (peptic ulcer disease) [533.90] HTN (hypertension) [401.9] Weakness generalized [780.79] Hypothyroidism [244.9] Vitamin d deficiency [268.9] Incomplete RBBB [426.4] End stage renal failure on dialysis [585.6] Fever [780.60] Anemia of chronic kidney failure [285.21] ESRD (end stage renal disease) on dialysis [585.6] C. difficile colitis [008.45] Staphylococcus aureus bacteremia with sepsis [038.11] Diabetes mellitus with ESRD (end-stage renal disease) [250.40] Secondary Discharge Diagnoses: HTN Discharged Condition: stable Significant Diagnostic Studies: MRI 1. Fluid in the left trochanteric bursa, consistent with bursitis. This may or may not be i nfected. 2. Extensive diffuse bilateral muscle and subcutaneous edema, progressive from the prior ex amination. Would consider severe myositis and cellulitis. If there is a history of diabetes, consider diabetic muscle infarctions. 3. Small bilateral hip joint effusions. 4. Small enchondroma in the proximal left femur. 5. Mild bilateral inguinal lymphadenopathy, mildly progressive. DANY 1. The left ventricle is moderately dilated. 2. Overall left ventricular systolic function is mild-moderately impaired with, an EF betwe en 40 - 45 %. 3. No vegetation visualized. 4. Bbdp-ar-uhdinvvm mitral regurgitation is present. 5. There is a trivial pericardial effusion present. Bone Scan IMPRESSION: Abnormal soft tissue activity over the left hip in the blood pool phase is comp atible with soft tissue inflammation. No significant increase in bone activity on the delaye d image. HPI and Hospital Course: The patient is a 47 y.o. male with significant past medical history of staph aureus bactere titi in June of this year as well as prior episodes in the remote past who presents with r ecurrent staph aureus bacteremia had been treated with 4 weeks of intravenous vancomycin. Th patient presented with generalized weakness and malaise. On admission he had 2 sets of b lood cultures which were actually negative. Blood cultures were of a fever on October 07 and a re both positive for staph aureus, MSSA. He has been treated with various antibiotics over t he course of the hospital stay, and at this time remains on vancomycin. Meropenem was added on 10/10/12 when he had a brief episode of hypoxemia and hypotension following his DANY. The p eyal has also been on metronidazole throughout the hospital stay for C. Difficile colitis. The patient reports that he has had persistent left hip pain ever since his episode of bact eremia in June of this year. The patient's left arm AV fistula was created in April by Dr. Meyer. This was created using morongo vein and does not contain any graft material. Recent MRI showed 1. Fluid in the left trochanteric bursa, consistent with bursitis. This may or may not be i nfected. 2. Extensive diffuse bilateral muscle and subcutaneous edema, progressive from the prior ex amination. Would consider severe myositis and cellulitis. If there is a history of diabetes, consider diabetic muscle infarctions. 3. Small bilateral hip joint effusions. 4. Small enchondroma in the proximal left femur. 5. Mild bilateral inguinal lymphadenopathy, mildly progressive. ASSESSMENT & PLAN 47 YO F with ESRD on HD having Recurrent MSSA Bacteremia Staphylococcus aureus bacteremia with sepsis: Bone scan showed abnormal activity in the left hip area. More likely that could be the sour ce.With MRI showed possible fluid collection with bursitis. He was supposed to have needle a spiration from his left hip. i had detail DW Dr. Allen and he had DW radiologist. According to him there is not enough fluid to drain and he said his hip has range of motion without mu ch pain. Will continue vanco for now till November 20. Adult failure to thrive: Due chronic staph aureus infection more likely from left hip. has had recurrent episodes of bacteremia in March 2012, April 2012 (despite being on vancomycin), June 2012, and again during this hospitalization. He has also been a mobile due to severe left hip pain. ESRD (end stage renal disease) on dialysis: Vancomycin has been dosed accordingly. C. difficile colitis: Symptoms resolved with metronidazole, Completed treatment day #10 of 10. Fever Fever curve improved. Suspect secondary to staph aureus bacteremia. Benign HTN: BP was low last night will Stop orvasc Salt restriction to less than 2 g/day Will adjust BP meds according to BP readings Malnutrition of moderate degree: Thanks for dietary consult Anemia of ESRD: SP blood transfusion and is better. He Had no CP, SOB, N/V, Diarrhea, Abdominal pain or GUERRA. No constipation or change in bowel habits. No orthopnea or PND. Appetite is good without abdominal bloating. No cough or fever. No dizziness, lightheadedness or any symptoms suggestive of stroke. Discharge Vitals: Filed Vitals: 10/15/12 0815 10/15/12 0830 10/15/12 0845 10/15/12 0900 BP: 122/70 125/72 122/68 119/65 Pulse: Temp: TempSrc: Resp: Height: Weight: SpO2: Discharge Exam: Constitutional: Alert and oriented to person, place, and time. Appears well-developed and w ell-nourished. HEENT: Neck supple, no JVD, non icteric sclera. Cardiovascular: Normal rate, regular rhythm, normal heart [...] There is no rebound and no guarding. Extremeties/Musculoskeletal: Normal range of motion.exhibits no tenderness. exhibits no [place] ma. Slight hip tenederness Neurological: Alert and oriented to person, place, and time. Has normal reflexes. displays normal reflexes. No cranial nerve deficit. Exhibits normal muscle tone. Coordination normal. Skin: Skin is warm and dry. No rash noted. No erythema. No pallor. Psychiatric: Has a normal mood and affect. Behavior is normal. Judgment normal. LABS: Lab 10/15/1242910/14/1241910/13/12429 WBC 6.4 6.5 5.6 HGB 10.3* 10.0* 8.0* HCT 31.5* 30.7* 25.1* PLT 416* 406* 335 NEUTOPHILPCT 70.6 70.5 67.3 MONOPCT 10.7 12.4* 12.7* Lab 10/14/1241910/13/1242910/12/1243210/11/12424 NA 135 131* 133* -- K 3.6 3.8 3.5 -- CL 99 95* 96* -- CO2 27 28 28 -- BUN 20 35* 28* -- CREATININE 3.66* 5.67* 4.81* -- CALCIUM -- -- -- -- PROT -- 6.6 6.2* 6.6 BILITOT -- 0.3 0.3 0.3 ALKPHOS -- -- -- -- ALT -- 12 10 12 AST -- 17 17 36 GLUCOSE -- -- -- -- Lab 10/15/12 0430 10/14/12 0420 10/13/12 0430 MG 2.0 1.9 2.1 Lab 10/10/12 0250 PHART -- PO2ART -- HEB0WLP -- [id number] -- BEART 4* Lab 10/10/12 1331 10/10/12 0443 10/10/12 0120 CKTOTAL 103 119 71 TROPONINI <0.02 <0.02 <0.02 TROPONINT -- -- -- CKMBINDEX 1.1 1.2 1.1 Disposition: SNF for PT/OT Patient Instructions: Current Discharge Medication List START taking these medications Details vancomycin (VANCOCIN) IVPB Inject 750 mg into the vein After Hemodialysis After Hemodialysi s After Hemodialysis. Dilute in appropriate volume of IV fluid and give by slow IV infusion. Qty: 37 Doses, Refills: 0 CONTINUE these medications which have CHANGED Details HYDROcodone-acetaminophen (NORCO) 10-325 MG per tablet Take 1 tablet by mouth every 6 (six) hours as needed. Qty: 30 tablet, Refills: 0 CONTINUE these medications which have NOT CHANGED Details allopurinol (ZYLOPRIM) 300 MG tablet Take 300 mg by mouth daily. amlodipine (NORVASC) 10 MG tablet Take 10 mg by mouth nightly. b complex-vitamin c-folic acid (NEPHRO-THU) 0.8 MG TABS Take 1 tablet by mouth daily. carvedilol (COREG) 3.125 MG tablet Take 3.125 mg by mouth 2 (two) times daily with meals. Cholecalciferol 2000 UNITS TABS Take 1 tablet by mouth daily. citalopram (CELEXA) 20 MG tablet Take 20 mg by mouth nightly. cyclobenzaprine (FLEXERIL) 10 MG tablet Take 10 mg by mouth 3 (three) times daily as needed . ergocalciferol (DRISDOL) 75381 UNITS capsule Take 1 capsule by mouth once a week. Qty: 3 capsule, Refills: 0 indomethacin (INDOCIN) 25 MG capsule Take 25 mg by mouth 3 (three) times daily with meals. levothyroxine (SYNTHROID, LEVOTHROID) 50 MCG tablet Take 50 mcg by mouth daily. loperamide (IMODIUM) 2 MG capsule Take 2 mg by mouth 4 (four) times daily as needed. Ind ications: Diarrhea megestrol (MEGACE) 40 MG/ML suspension Take 200 mg by mouth daily. omeprazole (PRILOSEC) 40 MG capsule Take 40 mg by mouth daily. sodium bicarbonate 650 MG tablet Take 1,300 mg by mouth 2 (two) times daily. albuterol (PROVENTIL) (2.5 MG/3ML) 0.083% nebulizer solution Take 2.5 mg by nebulization ev keira 6 (six) hours as needed. sevelamer (RENVELA) 800 MG tablet Take 800 mg by mouth 3 (three) times daily with meals. Guerra s not started taking yet Activity: activity as tolerated Diet: diabetic diet and renal diet Wound Care: as directed Discharge took more than 35 minutes, to include final examination, discussion of admission, and preparation of prescriptions, instructions for ongoing care, follow up and dictation of summary. Follow-up with PCP [address] Solorzano [address] Escobar 1 to 2 weeks Signed: VIKRAM CHANDRA MD, FACP 10/15/2012 9:02 AM documented in this enc ounter Medications at Time of Discharge + + [...] Progress Notes Conversion Transaction, Provider Unknown - 10/15/2012 12:24 PM PDTFormatting of this note m ight be different from the original. Progress Notes by Ruslan Amezquita PTA at 10/15/12 6597 Author: Ruslan Amezquita PTA Service: (none) Author Type: Metal Window Frame Maker Filed: 10/15/12 1224 Date of Service: 10/15/12 1224 Status: Signed Lithographic Printing Machinist: Ruslan Amezquita PTA (Metal Window Frame Maker) 10/15/12 1224 PT Last Visit PT Received On 10/15/12 PT Therapy Visit Not available Requires PT Follow Up Unavailable Other Comments Comments receiving HD onver quique Transaction, Provider Unknown - 10/15/2012 11:53 AM PDT Progress Notes by Kelley Toussaint RPH at 10/15/12 1153 Author: Kelley Toussaint RPH Service: (none) Author Type: Pharmacist Filed: 10/15/12 1153 Date of Service: 10/15/12 115 Status: Signed Lithographic Printing Machinist: Kelley Toussaint RPH (Pharmacist) Clinical Pharmacy Note: Vancomycin Monitoring - Day 8 Clinician Dosing: Pharmacy Dosing WBC 6.4 HD today, then discharge per rounding with Dr. Chandra Plan per protocol: Continue with current regimen: Vanco 750 mg IV after each HD, HD today Order trough levels:N/A 10/15/2012 11:51 AM Pharmacist: Kelley Toussaint Sean Willis T - 10/15/2012 10:34 AM PDTFormatting of this note might be different from the origi nal. Progress Notes by Sean Solorzano MD at 10/15/12 1034 Author: Sean Solorzano MD Service: Nephrology Author Type: Physician Filed: 10/15/12 1043 Date of Service: 10/15/12 1034 Status: Signed Lithographic Printing Machinist: Sean Solorzano MD (Physician) [facility] Service: NEPHROLOGY Progress Note Carol Potter 47 y.o. [id number] male [facility] Hospital Day: LOS: 12 days SUBJECTIVE Patient seen and examined. ADMITTED WITH Adult failure to thrive Carol Potter is a 47 y.o. male who is being followed for ESRD management. He was admitted with C. Difficile colitis and failure to thrive. Hospital course 10/06/12 HD uncomplicated. 10/07/12 Febrile. 10/08/12 Blood culture positive. Given Vancomycin and Fortaz post HD 10/09/12 Continues to be febrile. Blood cultures positive for staph aureus. Concern with asp iration pneumonitis. 10/10/2012; HD Interval history: Carol Potter says that he feels a little bit better today. his , Lily here ROS: No fever, chills sweats. No vomiting. No rashes or pruritis. No oral pain.C/o PAIN LEF T THIGH AND HIP. ROS: As in History of Present Illness. 7 area ROS was done and was otherwise negative. NO NEED FOR INTERVENTION FOR LEFT HIP/BURSA --ORTHO MRSA BACTEREMIA VANCO DURING HD AT [facility] NEEDS TO BE FAXED FROM DR SHAWN Cabrera IMROVED WITH FLAGYL DOING OK TOLERATING HD WITH UF 5 L WELL Pt HAS LOST LOTS OF WEIGHT PASSED IT TO HD UNIT TO REDUCE DRY WT BY 5 KG AND KEEP CHALLANGING MAY BENEFIT FROM MEGACE Past Medical History Diagnosis Date Hyperlipidemia Hypertension [...] W/ EGD; Surgeon: John Singleton MD; Location: [facility] END[facility]COPY; Se rvice: Gastroenterology; Laterality: N/A; Av fistula placement 05/06/2012 Procedure: AV FISTULA; Surgeon: Oskar Meyer MD; Location: [facility] MAIN OR; Service: Vascul ar; Laterality: Left; Left arm possible right Unlisted procedure arthroscopy shoulder rt , ligaments Knee arthroscopy 07/07/2012 Procedure: KNEE - ARTHROSCOPY; Surgeon: Favio Raza MD; Location: [facility] MAIN OR; Milton murillo: Orthopedics; Laterality: Right; After 1530 Catheter removal 07/07/2012 Procedure: DIALYSIS CATHETER REMOVAL; Surgeon: Oskar Meyer MD; Location: [facility]SIDE [place] OCEDURE; Service: General; Laterality: Right; perm cath Dialysis fistula creation 07/07/2012 Procedure: DIALYSIS CATHETER INSERTION; Surgeon: Oskar Meyer MD; Location: [facility] BEDSIDE PROCEDURE; Service: General; Laterality: Left; temporary dialysis catheter Av fistula repair 07/11/2012 Procedure: AV FISTULA GRAFT REPAIR/REVISION; Surgeon: Oskar Meyer MD; Location: [facility] OR; Service: Vascular; Laterality: Left; Superficialization of brachiobasilic fistula and right IJ perm cath insertion Dialysis fistula creation 07/11/2012 Procedure: DIALYSIS CATHETER INSERTION; Surgeon: Oskar Meyer MD; Location: [facility] MAIN OR; Service: Vascular; Laterality: [...] BIOLOGICAL; 2 STEP KIDSUNEMPLOYED BEFORE WORKED AT [employer] NONE ETOH QUIT 15 YEARS AGODRUGS: quit METHAMPHETAMINES PER P ATIENT after the ARF in mar 2012FATHER HAS COLON CANCER, HEART DISEASEMOTHER 15 YEARS AGONO FH KIDNEY PROBLEMS. Family History Problem Relation Age of Onset Heart disease Mother Heart disease Father Diabetes Father Cancer Father colon cancer Scheduled Medications carvedilol 3.125 mg Oral BID WC cholecalciferol 2,000 Units Oral Daily citalopram 20 mg Oral Nightly epoetin alena 10,000 Units Intravenous QMWF ergocalciferol 50,000 Units Oral Weekly heparin (porcine) 1,000 Units Intravenous QMWF heparin (porcine) 5,000 Units Subcutaneous Q8H heparin (porcine) 500 Units Intravenous QMWF ipratropium-albuterol 3 mL Nebulization Q4H levothyroxine 50 mcg Oral Daily metroNIDAZOLE 500 mg Oral Q8H ALYSSA omeprazole 40 mg Oral Daily polyethylene glycol 17 g Oral BID sevelamer 800 mg Oral TID WC sodium bicarbonate buffer 5 mL Infiltration Once sodium chloride 250 mL Intravenous Once vancomycin 750 mg Intravenous See Admin Instructions vancomycin 750 mg Intravenous Once vitamin B kbqdgxy-[id number]-bzmch acid 1 tablet Oral Daily Continuous Infusions PRN Medications acetaminophen, acetaminophen, albumin human, albuterol, HYDROcodone-acetaminophen, lidocain e buffered 1%, ondansetron, ondansetron Allergy: Allergies Allergen Reactions Lisinopril Other (See Comments) "makes me sweat and knocked me out" Penicillins Other (See Comments) Unknown 10/08/12: Patient tolerated Ceftriaxone during previous admissions. OBJECTIVE Vital Signs: BP 123/69 | Pulse 74 | Temp(Src) 98.2 F (36.8 C) (Oral) | Resp 18 | Ht 1.702 m (5' 7") | Wt 75.1 kg (165 lb 9.1 oz) | BMI 25.93 kg/m2 | SpO2 100% I&O Detailed Table: I/O last 3 completed shifts: In: 1140 [P.O.:1140] Out: 501 [Urine:500; Stool:1] Weight change: -5.9 kg (-13 lb 0.1 oz) Hemodynamics Last 24hrs: Examination: PT HAS LOST LOTS OF WEIGHT Constitutional: Alert and oriented to person, place, and time. Appears well-developed and w ell-nourished. HEENT: Neck supple, no JVD, non icteric sclera. Cardiovascular: S1+ S2 no friction rub. LUNGS:: Clear breath sounds bilaterally, no wheezes and no rales. Abdominal: Soft, non tender on palpation, No distension and no mass. There is no rebound te nderness and no guarding. Musculoskeletal: No gross deformity, EXT: 2 plus edema over thighs, and pulses are palpable.B/L LE with chronic venous changes, TENDERNESS LEFT THIGH Neurological: No gross focal motor neurologic deficits. Skin: Skin is warm and dry. No rashes, lacerations, erythema or jaundice. Psychiatric: AXOX3, mood and affect ok, memory seems to be intact. Lymph Nodes: Not Palpable Hemodialysis access: Left upper extremity brachiocephalic fistula LABS: IRON: Lab Results Component Value Date IRON 40* 09/10/2012 Lab Results Component Value Date FERRITIN 933* 09/10/2012 LABIRON 35 09/10/2012 CBC: Lab Results Component Value Date WBC 6.4 10/15/2012 RBC 3.76* 10/15/2012 HGB 10.3* 10/15/2012 HCT 31.5* 10/15/2012 MCV 83.8 10/15/2012 MCH 27.4 10/15/2012 MCHC 32.7 10/15/2012 RDW 48.1 10/15/2012 PLT 416* 10/15/2012 MPV 7.2 10/15/2012 DIFFTYPE AUTOMATED 10/15/2012 CMP: Lab Results Component Value Date NA 135 10/14/2012 K 3.6 10/14/2012 CL 99 10/14/2012 CO2 27 10/14/2012 ANIONGAP 13 10/14/2012 GLUF 102* 10/14/2012 BUN 20 10/14/2012 CREATININE 3.66* 10/14/2012 BCR 6 10/14/2012 CA 7.3* 10/14/2012 CA 6.1* 04/02/2012 PROT 6.6 10/13/2012 ALB 1.5* 10/13/2012 GLOB 5.2* 10/13/2012 BILITOT 0.3 10/13/2012 ALP 167* 10/13/2012 AST 17 10/13/2012 ALT 12 10/13/2012 EGFR 19* 10/14/2012 Magnesium: Lab Results Component Value Date MG 2.0 10/15/2012 Phosphorus: Lab Results Component Value Date PHOS 4.3 10/15/2012 PT/INR: Lab Results Component Value Date INR 1.1 09/10/2012 Troponin: Lab Results Component Value Date TROPONINI <0.02 10/10/2012 Lab Results Component Value Date PTHINTACT 255* 04/02/2012 [id number] <12* 04/02/2012 Lab Results Component Value Date TSH 8.41* 09/11/2012 TSH 7.30* 07/06/2012 TSH 16.60* 04/03/2012 Lab Results Component Value Date URICACID 8.2 04/02/2012 Lab Results Component Value Date HGBA1C UNABLE TO CALCULATE 09/11/2012 HGBA1C 6.0 05/14/2012 HGBA1C 5.4 04/03/2012 IMAGING X-ray Hip 2 View Left 10/10/2012 History: 47 year old male with hip pain. Bacteremia Technique: 2 views of the l eft hip. No prior study for comparison. Findings: No erosive change, joint space is symmetr ic. Range of motion normal. No fracture or aggressive lesion, but extensive calcified vascul opathy is appreciated. No subcutaneous emphysema On the AP film there is some lucency about the inferior scrotum near the midline but this may simply be artifactual, should be easily correlated with physical examination. Bones are normal in density and mineralization and th ere is no evident aggressive lesion. Normal round contour of both femoral heads without sign ificant erosive or productive arthropathy. No lytic lesion. Punctate calcification above th e right transverse process of L5. IMPRESSION: No focal disease about the left hip discernib le to this technique. If infection is suspect, note this examination is of low sensitivity both for osteomyelitis and for septic arthropathy. Nm Bone Scan 3 Phase 10/11/2012 EXAM: TRIPLE-PHASE BONE SCAN LIMITED EXAM DATE: 10/11/2012 04:52 PM. CLINICAL H ISTORY: Infection. Left hip pain. Bacteremia. COMPARISON: None. TECHNIQUE: Patient was inj ected with 32 mCi of technetium 99m MDP intravenously with flow phase gamma camera imaging a nteriorly over the hips, 5 seconds per frame for 1 minute. Subsequently, blood pool images o f the hips were obtained. The patient returned 3 hours later for multiple spot images of the pelvis and hips. FINDINGS: Flow Phase: There is symmetric flow to bilateral hips. Bloo d Pool Phase: Increased soft tissue activity noted over the left hip and intratrochanteric r egion. Delayed Phase: Bone scan images of the hip and pelvis reveal normal and symmetric ac tivity. No focal bone abnormalities are appreciated. IMPRESSION: Abnormal soft tissue acti vity over the left hip in the blood pool phase is compatible with soft tissue inflammation. No significant increase in bone activity on the delayed image. [facility] Electronically leonid d by Favio Archuleta MD on Oct 11 2012 6:55PM SITE ID: [id number] X-ray Chest Ap Only 10/10/2012 EXAM: CHEST RADIOGRAPHY EXAM DATE: 10/10/2012 01:27 AM CLINICAL HISTORY: Shor tness of breath. Bacteremia. Failure to thrive. COMPARISON: 10/08/2012. TECHNIQUE: 1 view . FINDINGS: There is borderline cardiomegaly. Dense opacification is seen in the left lowe r lobe. Small left pleural effusion is seen. Right lung is grossly clear. Pulmonary vascular congestion is not seen. IMPRESSION: 1. Left lower lobe consolidation and small left effusi on. 2. Borderline cardiomegaly. [facility] Electronically signed by Douglas Ortiz MD on Oct 10 2012 10:01PM SITE ID: [id number] Xr Chest 1 View 10/08/2012 CAROL POTTER XR CHEST 1 VIEW 10/08/2012 12:20 PM History: 47 years. Male. Acut e shortness of breath. History of hypertension. Chronic renal failure. Technique: AP portab le upright technique was performed at 1225 hours. Findings: Increased density is visualize d at the left lung base, behind the left heart obscuring the left hemidiaphragm, suggesting segmental left lower lobe atelectasis/pneumonia. No visible left pleural effusion. Peribron chial interstitial density is mild in the perihilar areas, extending into the lower lobes, s uggesting mild interstitial pulmonary edema. The right pleural space is clear. Mild cardiom egaly is present. The pulmonary justin and mediastinal contours are normal. There is mild calc ification of the thoracic aorta, but no aortic dilatation or tortuosity. No central venous c atheter visualized. Conclusions: 1. Mild interstitial pulmonary edema and cardiomegaly sug gesting acute congestive heart failure. 2. Left lower lobe segmental atelectasis/pneumonia. 3. All findings are new as compared with 07/07/12. Mri Hip Left Without Contrast 10/12/2012 CAROL POTTER MRI HIP LEFT WO CONTRAST 10/12/2012 10:22 AM HISTORY: Left hip pain. Concern for infection. TECHNIQUE: Multiplanar MR imaging was performed to the left hip wi thout gadolinium. FINDINGS: Compared with July 06, 2012. There are multifocal areas of red marrow reconversion in the pelvis and proximal femurs. There is no abnormal signal inte nsity identified that would be suspicious for osteomyelitis. There is no evidence of avascu lar necrosis of the femoral heads. There are small bilateral hip joint effusions, symmetric al in size. There is mild fluid in the left trochanteric bursa, consistent with bursitis. Consider needle aspiration to exclude infected bursitis. There is bilateral inguinal lympha denopathy measuring up to 13 x 24 mm on the left. This is mildly progressive from the prior study. There is a small T2 hyperintense microlobulated lesion in the proximal left femur m easuring 7 mm, probably a small enchondroma. There is severe diffuse bilateral subcutaneous edema, most prominent laterally, nonspecific in etiology. No focal fluid collection is shannon ntified with suggest a soft tissue abscess. There is also moderate to severe bilateral musc le edema, left worse than right involving the gluteus medius and minimus muscles, abductor m uscles, obturator muscles, and iliopsoas muscles. This is nonspecific in etiology and could potentially indicate myositis. This is mildly progressive from the prior examination. If there is a history of long-standing diabetes, then diabetic muscle infarctions would be poss ible. IMPRESSION: 1. Fluid in the left trochanteric bursa, consistent with bursitis. This may or may not be infected. 2. Extensive diffuse bilateral muscle and subcutaneous edema, progressive from the prior examination. Would consider severe myositis and cellulitis. If there is a history of diabetes, consider diabetic muscle infarctions. 3. Small bilateral hi p joint effusions. 4. Small enchondroma in the proximal left femur. 5. Mild bilateral ingu inal lymphadenopathy, mildly progressive. Echo Dany 10/09/2012 Patient Name: CAROL POTTER Date of : 1965 [facility] Physician: Beny Valencia MD INDICATIONS endocarditis CONCLUSIONS 1. The left ventricle i s moderately dilated. 2. Overall left ventricular systolic function is mild-moderately impai red with, an EF between 40 - 45 %. 3. No vegetation visualized. 4. Foiv-jn-wjohhigj mitral r egurgitation is present. 5. There is a trivial pericardial effusion present. FINDINGS ----- --- Procedure: The patient was brought to the catheterization laboratory holding area in the fasting state. Informed consent was obtained after benefits and risks of the procedure wer e discussed with the patient including but not limited to the potential for esophageal punct ure and . The oropharynx was anesthetized with 1% Hurricane spray. After conscious se dation, the transesophageal probe was advanced and placed in the esophagus and multiple proj ections of the cardiovascular structures were acquired and recorded. This was followed by advancement of the probe into the stomach for transgastric imaging. Finally, interrogation of the descending aorta and arch was performed. The probe was removed. The patient tolera gela the procedure well. There were no immediate complications. 2 D, pulsed and continuou s wave form and color images were interpreted in real time. Medications: 3 mg of Versed and Study quality: This was a technically good study. Left Ventricle: The left ventricle is mode rately dilated. Left Ventricle: Left Ventricle: Overall left ventricular systolic function is mild-moderately impaired with, an EF between 40 - 45 %. Left Atrium: The left atrium is normal in size and function. Left Atrium: Normal left atrial appendage without evidence for thrombi. Right Ventricle: The right ventricle is normal in size and function. Right Atrium : The right atrium is normal in size and function. Interatrial Septum: No evidence for intra -atrial shunt by bubble study. Interatrial Septum: No shunt seen with color Doppler. Inter atrial Septum: No shunt seen with bubble study. Aortic Valve: The aortic valve is trileaflet , and appears structurally normal. No aortic stenosis or regurgitation. Aortic Valve: There is mild aortic valve sclerosis without stenosis. Aortic Valve: There is no evidence of aor tic stenosis. Aortic Valve: No vegetation visualized. Mitral Valve: Sdir-qt-cbjnnzwh mitral regurgitation is present. Tricuspid Valve: The tricuspid valve appears structurally normal. Trace/Mild (physiologic) regurgitation. Aorta: Ascending aorta, aortic arch and descending thoracic aorta are of normal caliber with no significant atherosclerotic disease. Mass: No m ass visualized. Thrombus: No clot visualized. Pericardium: There is a trivial pericardial ef fusion present. MEASUREMENTS Destination Specialist: RADHA Authenticated by: Beny Rousseau Report Date/Time: 10-09-2012 18:41:13 PROBLEM LIST Principal Problem: *Adult failure to thrive Active Problems: Vitamin d deficiency Secondary hyperparathyroidism (of renal origin) Hypothyroidism Hypoalbuminemia Diabetes mellitus with ESRD (end-stage renal disease) Obesity (BMI 30-39.9) HTN (hypertension) ESRD (end stage renal disease) on dialysis Anemia of chronic kidney failure Gout PUD (peptic ulcer disease) Malnutrition of moderate degree ASSESSMENT & PLAN ESRD Mr. Potter is a 47 y.o. male patient with ESRD likely secondary to Diabetic nephropathy who is dialyzed Saturday and Saturday at [facility] via Left upper extremity pr imary brachio cephalic fistula (last HD was Saturday10/03/12). He is now admitted with C. Difficile colitis and failure to thrive. Hospitalization has been complicated by staph aureus bacteremia. I will continue maintenance HD. TOLERATING HD WITH 5 L UF WELL TODAY REDUCED DRY WT Access: HE AVF OK without any evidence of infection. HTN: EF between 40 - 45 %. BP is reasonably controlled with current medications and dietary salt restriction. Anemia of chronic renal disease Iron work up shows Adequate iron stores. I would monitor Hb to keep it around 10 (using ANAYA and Fe as needed). H&H: S/P 2 PRBC TODAY DURING HD 7.9, 8.2 On epo History of gout Profound hypoalbuminemia with diabetic nephropathy and nephrotic syndrome Secondary hyperparathyroidism Getting vit d analog in out pt HD unit Continue phosphate binders for now. He would benefit from paper stripper evaluation. And MEGACE Staphylococcus aureus bacteremia with sepsis: getting Bone scan. The patient has had 4 episodes of staph aureus bacteremia in the past 6 months Transesophageal echocardiogram does not show evidence of endocarditis, He does have a left lower lobe pneumonia at this time His left hip remains painful. Previous MRI in had shown myositis about the hip but no evidence of septic joint or osteomyelitis. Adult failure to thrive: Suspect secondary to chronic staph aureus infection, source not yet identified. He has had recurrent episodes of bacteremia in March 2012, April 2012 (despite being on vancomycin ), June 2012, and again during this hospitalization. He has also been a mobile due to sev ere left hip pain. His overall prognosis is poor unless a source of fever , Recurrent bacter emias STAPH AUREUS . Vancomycin has been dosed accordingly. MRI: LEFT HIP: IMPRESSION: 1. Fluid in the left trochanteric bursa, consistent with bursiti s. This may or may not be infected. 2. Extensive diffuse bilateral muscle and subcutaneous e jay, progressive from the prior examination. Would consider severe myositis and cellulitis. If there is a history of diabetes, consider diabetic muscle infarctions. 3. Small bilateral hip joint effusions. 4. Small enchondroma in the proximal left femur. 5. Mild bilateral ing uinal lymphadenopathy, mildly progressive. C. difficile colitis: Symptoms resolved with metronidazole, currently treatment day #10 of 10. Pt to AVOID NSAID,ADAM II inhibitors,IV Contrast and Nephrotoxic Antibiotics DOSE ALL MEDS PER ESRD D/W DR CHANDRA S/O :PRBC GIVEN DURING HD 08/15/2012 , CONSIDER MEGACE TOLERATING HD WELL WITH UF 3 L TO TOLERANCE . Vancomycin Rx needs to be faxed to HD UNIT BY FREIGHT CAR INSPECTOR D/W EDUCATED PT ON FLUID RESTRICTION 1.5 L/24 hrs CM:Discharge planning update: CM called to follow-up if [place] had an available bed. Dominick Willoughby spoke with ibrahima [facility]ino male beds available at this time. Pt continued to have SNF [facility] ement at [facility] in [place] for when medically stable for discharge. Time spend over 25 minutes of time spent evaluating the patient, reviewing the data, formul ating a plan and discussion with patient and hospitalist team, more than half of the time sp ent in counseling and coordination of care. SEAN SOLORZANO MD 10/15/2012 onversio n Transaction, Provider Unknown - 10/15/2012 10:18 AM PDTFormatting of this note might be di fferent from the original. Progress Notes by VANDANA Alvarado at 10/15/12 1018 Author: VANDANA Alvarado Service: (none) Author Type: Rock Picker Filed: 10/15/12 [id number] Date of Service: 10/15/12 1018 Status: Signed Lithographic Printing Machinist: VANDANA Alvarado (Rock Picker) Pt is aware that he is dc'ing to [facility] in [place]. Spoke w/ she is not able to get Pt transported back. Pt is on contact precautions and requires two person assist w/transfers . Pt is fall risk will need ambulance transport. All SNF paperwork filled out and faxed to [facility]. They are expecting him, transport scheduled at 1:30PM. Sean Willis - 10/14/2012 1:49 PM PDTFormatting of this note might be different from the origi nal. Progress Notes by Sean Solorzano MD at 10/14/12 [id number] Author: Sean Solorzano MD Service: Nephrology Author Type: Physician Filed: 10/14/12 1532 Date of Service: 10/14/12 6813 Status: Signed Lithographic Printing Machinist: Sean Solorzano MD (Physician) [facility] Service: NEPHROLOGY Progress Note Carol Potter 47 y.o. [phone] [id number] male [facility] Hospital Day: LOS: 11 days SUBJECTIVE Patient seen and examined. ADMITTED WITH Adult failure to thrive Carol Potter is a 47 y.o. male who is being followed for ESRD management. He was admitted with C. Difficile colitis and failure to thrive. Hospital course 10/06/12 HD uncomplicated. 10/07/12 Febrile. 10/08/12 Blood culture positive. Given Vancomycin and Fortaz post HD 10/09/12 Continues to be febrile. Blood cultures positive for staph aureus. Concern with asp iration pneumonitis. 10/10/2012; HD Interval history: Carol Potter says that he feels a little bit better today. his , Lily here ROS: No fever, chills sweats. No vomiting. No rashes or pruritis. No oral pain.C/o PAIN LEF T THIGH AND HIP. ROS: As in History of Present Illness. 7 area ROS was done and was otherwise negative. NO NEED FOR INTERVENTION FOR LEFT HIP/BURSA --ORTHO MRSA BACTEREMIA VANCO DURING HD AT [facility] NEEDS TO BE FAXED FROM DR SHAWN CHANDLER WITH [facility] Past Medical History Diagnosis Date Hyperlipidemia Hypertension [...] W/ EGD; Surgeon: John Singleton MD; Location: [facility] ENDOSCOPY; Se rvice: Gastroenterology; Laterality: N/A; Av fistula placement 05/06/2012 Procedure: AV FISTULA; Surgeon: Oskar Meyer MD; Location: [facility] MAIN OR; Service: Vascul ar; Laterality: Left; Left arm possible right Unlisted procedure arthroscopy shoulder rt , ligaments Knee arthroscopy 07/07/2012 Procedure: KNEE - ARTHROSCOPY; Surgeon: Favio Raza MD; Location: [facility] MAIN OR; ervice: Orthopedics; Laterality: Right; After 1530 Catheter removal 07/07/2012 Procedure: DIALYSIS CATHETER REMOVAL; Surgeon: Oskar Meyer MD; Location: [facility] BEDSIDE [place] OCEDURE; Service: General; Laterality: Right; perm cath Dialysis fistula creation 07/07/2012 Procedure: DIALYSIS CATHETER INSERTION; Surgeon: Oskar Meyer MD; Location: [facility] BEDSIDE PROCEDURE; Service: General; Laterality: Left; temporary dialysis catheter Av fistula repair 07/11/2012 Procedure: AV FISTULA GRAFT REPAIR/REVISION; Surgeon: Oskar Meyer MD; Location: [facility] OR; Service: Vascular; Laterality: Left; Superficialization of brachiobasilic fistula and right IJ perm cath insertion Dialysis fistula creation 07/11/2012 Procedure: DIALYSIS CATHETER INSERTION; Surgeon: Oskar Meyer MD; Location: [facility] MAIN OR; Service: Vascular; Laterality: [...] BIOLOGICAL; 2 STEP KIDSUNEMPLOYED BEFORE WORKED AT [employer] [place] [employer] NONE ETOH QUIT 15 YEARS AGODRUGS: quit METHAMPHETAMINES PER P ATIENT after the ARF in mar 2012FATHER HAS COLON CANCER, HEART DISEASEMOTHER 15 YEARS AGONO FH KIDNEY PROBLEMS. Family History Problem Relation Age of Onset Heart disease Mother Heart disease Father Diabetes Father Cancer Father colon cancer Scheduled Medications carvedilol 3.125 mg Oral BID WC cholecalciferol 2,000 Units Oral Daily citalopram 20 mg Oral Nightly epoetin alena 10,000 Units Intravenous QMWF ergocalciferol 50,000 Units Oral Weekly heparin (porcine) 1,000 Units Intravenous QMWF heparin (porcine) 5,000 Units Subcutaneous Q8H heparin (porcine) 500 Units Intravenous QMWF ipratropium-albuterol 3 mL Nebulization Q4H levothyroxine 50 mcg Oral Daily metroNIDAZOLE 500 mg Oral Q8H ALYSSA omeprazole 40 mg Oral Daily polyethylene glycol 17 g Oral BID sevelamer 800 mg Oral TID WC sodium bicarbonate buffer 5 mL Infiltration Once sodium chloride 250 mL Intravenous Once vancomycin 750 mg Intravenous See Admin Instructions vancomycin 750 mg Intravenous Once vitamin B oxaveod-L-zqbpa acid 1 tablet Oral Daily Continuous Infusions PRN Medications acetaminophen, acetaminophen, albumin human, albuterol, HYDROcodone-acetaminophen, lidocain e buffered 1%, ondansetron, ondansetron Allergy: Allergies Allergen Reactions Lisinopril Other (See Comments) "makes me sweat and knocked me out" Penicillins Other (See Comments) Unknown 10/08/12: Patient tolerated Ceftriaxone during previous admissions. OBJECTIVE Vital Signs: BP 138/75 | Pulse 75 | Temp(Src) 98.8 F (37.1 C) (Axillary) | Resp 16 | Ht 1.702 m (5' 7") | Wt 70 kg (154 lb 5.2 oz) | BMI 24.17 kg/m2 | SpO2 99% I&O Detailed Table: I/O last 3 completed shifts: In: 2311 [P.O.:920; I.V.:291; Other:1100] Out: 4525 [Urine:525; Other:4000] Weight change: 0.9 kg (1 lb 15.8 oz) Hemodynamics Last 24hrs: Examination: PT HAS LOST LOTS OF WEIGHT Constitutional: Alert and oriented to person, place, [...] EXT: No pedal edema and pulses are palpable.B/L LE with chronic venous changes, TENDERNESS LEFT THIGH Neurological: No gross focal motor neurologic deficits. Skin: Skin is warm and dry. No rashes, lacerations, erythema or jaundice. Psychiatric: AXOX3, mood and affect ok, memory seems to be intact. Lymph Nodes: Not Palpable Hemodialysis access: Left upper extremity brachiocephalic fistula LABS: IRON: Lab Results Component Value Date IRON 40* 09/10/2012 Lab Results Component Value Date FERRITIN 933* 09/10/2012 LABIRON 35 09/10/2012 CBC: Lab Results Component Value Date WBC 6.5 10/14/2012 RBC 3.64* 10/14/2012 HGB 10.0* 10/14/2012 HCT 30.7* 10/14/2012 MCV 84.3 10/14/2012 MCH 27.5 10/14/2012 MCHC 32.6 10/14/2012 RDW 46.8 10/14/2012 PLT 406* 10/14/2012 MPV 7.2 10/14/2012 DIFFTYPE AUTOMATED 10/14/2012 CMP: Lab Results Component Value Date NA 135 10/14/2012 K 3.6 10/14/2012 CL 99 10/14/2012 CO2 27 10/14/2012 ANIONGAP 13 10/14/2012 GLUF 102* 10/14/2012 BUN 20 10/14/2012 CREATININE 3.66* 10/14/2012 BCR 6 10/14/2012 CA 7.3* 10/14/2012 CA 6.1* 04/02/2012 PROT 6.6 10/13/2012 ALB 1.5* 10/13/2012 GLOB 5.2* 10/13/2012 BILITOT 0.3 10/13/2012 ALP 167* 10/13/2012 AST 17 10/13/2012 ALT 12 10/13/2012 EGFR 19* 10/14/2012 Magnesium: Lab Results Component Value Date MG 1.9 10/14/2012 Phosphorus: Lab Results Component Value Date PHOS 2.6 10/14/2012 PT/INR: Lab Results Component Value Date INR 1.1 09/10/2012 Troponin: Lab Results Component Value Date TROPONINI <0.02 10/10/2012 Lab Results Component Value Date PTHINTACT 255* 04/02/2012 [id number] <12* 04/02/2012 Lab Results Component Value Date TSH 8.41* 09/11/2012 TSH 7.30* 07/06/2012 TSH 16.60* 04/03/2012 Lab Results Component Value Date URICACID 8.2 04/02/2012 Lab Results Component Value Date HGBA1C UNABLE TO CALCULATE 09/11/2012 HGBA1C 6.0 05/14/2012 HGBA1C 5.4 04/03/2012 IMAGING X-ray Hip 2 View Left 10/10/2012 History: 47 year old male with hip pain. Bacteremia Technique: 2 views of the l eft hip. No prior study for comparison. Findings: No erosive change, joint space is symmetr ic. Range of motion normal. No fracture or aggressive lesion, but extensive calcified vascul opathy is appreciated. No subcutaneous emphysema On the AP film there is some lucency about the inferior scrotum near the midline but this may simply be artifactual, should be easily correlated with physical examination. Bones are normal in density and mineralization and th ere is no evident aggressive lesion. Normal round contour of both femoral heads without sign ificant erosive or productive arthropathy. No lytic lesion. Punctate calcification above th e right transverse process of L5. IMPRESSION: No focal disease about the left hip discernib le to this technique. If infection is suspect, note this examination is of low sensitivity both for osteomyelitis and for septic arthropathy. Nm Bone Scan 3 Phase 10/11/2012 EXAM: TRIPLE-PHASE BONE SCAN LIMITED EXAM DATE: 10/11/2012 04:52 PM. CLINICAL H ISTORY: Infection. Left hip pain. Bacteremia. COMPARISON: None. TECHNIQUE: Patient was inj ected with 32 mCi of technetium 99m MDP intravenously with flow phase gamma camera imaging a nteriorly over the hips, 5 seconds per frame for 1 minute. Subsequently, blood pool images o f the hips were obtained. The patient returned 3 hours later for multiple spot images of the pelvis and hips. FINDINGS: Flow Phase: There is symmetric flow to bilateral hips. Bloo d Pool Phase: Increased soft tissue activity noted over the left hip and intratrochanteric r egion. Delayed Phase: Bone scan images of the hip and pelvis reveal normal and symmetric ac tivity. No focal bone abnormalities are appreciated. IMPRESSION: Abnormal soft tissue acti vity over the left hip in the blood pool phase is compatible with soft tissue inflammation. No significant increase in bone activity on the delayed image. RADIA Electronically leonid d by Favio Archuleta MD on Oct 11 2012 6:55PM SITE ID: [id number] X-ray Chest Ap Only 10/10/2012 EXAM: CHEST RADIOGRAPHY EXAM DATE: 10/10/2012 01:27 AM CLINICAL HISTORY: Shor tness of breath. Bacteremia. Failure to thrive. COMPARISON: 10/08/2012. TECHNIQUE: 1 view . FINDINGS: There is borderline cardiomegaly. Dense opacification is seen in the left lowe r lobe. Small left pleural effusion is seen. Right lung is grossly clear. Pulmonary vascular congestion is not seen. IMPRESSION: 1. Left lower lobe consolidation and small left effusi on. 2. Borderline cardiomegaly. RADIA Electronically signed by Douglas Ortiz MD on Oct 10 2012 10:01PM SITE ID: [id number] Xr Chest 1 View 10/08/2012 CAROL POTTER XR CHEST 1 VIEW 10/08/2012 12:20 PM History: 47 years. Male. Acut e shortness of breath. History of hypertension. Chronic renal failure. Technique: AP portab le upright technique was performed at 1225 hours. Findings: Increased density is visualize d at the left lung base, behind the left heart obscuring the left hemidiaphragm, suggesting segmental left lower lobe atelectasis/pneumonia. No visible left pleural effusion. Peribron chial interstitial density is mild in the perihilar areas, extending into the lower lobes, s uggesting mild interstitial pulmonary edema. The right pleural space is clear. Mild cardiom egaly is present. The pulmonary justin and mediastinal contours are normal. There is mild calc ification of the thoracic aorta, but no aortic dilatation or tortuosity. No central venous c atheter visualized. Conclusions: 1. Mild interstitial pulmonary edema and cardiomegaly sug gesting acute congestive heart failure. 2. Left lower lobe segmental atelectasis/pneumonia. 3. All findings are new as compared with 07/07/12. Mri Hip Left Without Contrast 10/12/2012 CAROL POTTER MRI HIP LEFT WO CONTRAST 10/12/2012 10:22 AM HISTORY: Left hip pain. Concern for infection. TECHNIQUE: Multiplanar MR imaging was performed to the left hip wi thout gadolinium. FINDINGS: Compared with July 06, 2012. There are multifocal areas of red marrow reconversion in the pelvis and proximal femurs. There is no abnormal signal inte nsity identified that would be suspicious for osteomyelitis. There is no evidence of avascu lar necrosis of the femoral heads. There are small bilateral hip joint effusions, symmetric al in size. There is mild fluid in the left trochanteric bursa, consistent with bursitis. Consider needle aspiration to exclude infected bursitis. There is bilateral inguinal lympha denopathy measuring up to 13 x 24 mm on the left. This is mildly progressive from the prior study. There is a small T2 hyperintense microlobulated lesion in the proximal left femur m easuring 7 mm, probably a small enchondroma. There is severe diffuse bilateral subcutaneous edema, most prominent laterally, nonspecific in etiology. No focal fluid collection is shannon ntified with suggest a soft tissue abscess. There is also moderate to severe bilateral musc le edema, left worse than right involving the gluteus medius and minimus muscles, abductor m uscles, obturator muscles, and iliopsoas muscles. This is nonspecific in etiology and could potentially indicate myositis. This is mildly progressive from the prior examination. If there is a history of long-standing diabetes, then diabetic muscle infarctions would be poss ible. IMPRESSION: 1. Fluid in the left trochanteric bursa, consistent with bursitis. This may or may not be infected. 2. Extensive diffuse bilateral muscle and subcutaneous edema, progressive from the prior examination. Would consider severe myositis and cellulitis. If there is a history of diabetes, consider diabetic muscle infarctions. 3. Small bilateral hi p joint effusions. 4. Small enchondroma in the proximal left femur. 5. Mild bilateral ingu inal lymphadenopathy, mildly progressive. Echo Dany 10/09/2012 Patient Name: CAROL POTTER Date of : 1965 [facility] Physician: Beny Valencia MD INDICATIONS endocarditis CONCLUSIONS 1. The left ventricle i s moderately dilated. 2. Overall left ventricular systolic function is mild-moderately impai red with, an EF between 40 - 45 %. 3. No vegetation visualized. 4. Ftqw-nm-rdcpvrrv mitral r egurgitation is present. 5. There is a trivial pericardial effusion present. FINDINGS ----- --- Procedure: The patient was brought to the catheterization laboratory holding area in the fasting state. Informed consent was obtained after benefits and risks of the procedure wer e discussed with the patient including but not limited to the potential for esophageal punct ure and . The oropharynx was anesthetized with 1% Hurricane spray. After conscious se dation, the transesophageal probe was advanced and placed in the esophagus and multiple proj ections of the cardiovascular structures were acquired and recorded. This was followed by advancement of the probe into the stomach for transgastric imaging. Finally, interrogation of the descending aorta and arch was performed. The probe was removed. The patient tolera gela the procedure well. There were no immediate complications. 2 D, pulsed and continuou s wave form and color images were interpreted in real time. Medications: 3 mg of Versed and Study quality: This was a technically good study. Left Ventricle: The left ventricle is mode rately dilated. Left Ventricle: Left Ventricle: Overall left ventricular systolic function is mild-moderately impaired with, an EF between 40 - 45 %. Left Atrium: The left atrium is normal in size and function. Left Atrium: Normal left atrial appendage without evidence for thrombi. Right Ventricle: The right ventricle is normal in size and function. Right Atrium : The right atrium is normal in size and function. Interatrial Septum: No evidence for intra -atrial shunt by bubble study. Interatrial Septum: No shunt seen with color Doppler. Inter atrial Septum: No shunt seen with bubble study. Aortic Valve: The aortic valve is trileaflet , and appears structurally normal. No aortic stenosis or regurgitation. Aortic Valve: There is mild aortic valve sclerosis without stenosis. Aortic Valve: There is no evidence of aor tic stenosis. Aortic Valve: No vegetation visualized. Mitral Valve: Jyjd-mv-nbsnvvao mitral regurgitation is present. Tricuspid Valve: The tricuspid valve appears structurally normal. Trace/Mild (physiologic) regurgitation. Aorta: Ascending aorta, aortic arch and descending thoracic aorta are of normal caliber with no significant atherosclerotic disease. Mass: No m ass visualized. Thrombus: No clot visualized. Pericardium: There is a trivial pericardial ef fusion present. MEASUREMENTS Destination Specialist: RADHA Authenticated by: Beny Rousseau Report Date/Time: 10-09-2012 18:41:13 PROBLEM LIST Principal Problem: *Adult failure to thrive Active Problems: Vitamin d deficiency Secondary hyperparathyroidism (of renal origin) Hypothyroidism Hypoalbuminemia Diabetes mellitus with ESRD (end-stage renal disease) Obesity (BMI 30-39.9) HTN (hypertension) ESRD (end stage renal disease) on dialysis Anemia of chronic kidney failure Gout Hyponatremia PUD (peptic ulcer disease) Weakness generalized C. difficile colitis Fever Bacteremia Staphylococcus aureus bacteremia with sepsis Malnutrition of moderate degree ASSESSMENT & PLAN ESRD Mr. Potter is a 47 y.o. male patient with ESRD likely secondary to Diabetic nephropathy who is dialyzed Saturday and Saturday at [place] dialysis unit via Left upper extremity pr imary brachio cephalic fistula (last HD was Saturday10/03/12). He is now admitted with C. Difficile colitis and failure to thrive. Hospitalization has been complicated by staph aureus bacteremia. I will continue maintenance HD. Access: HE AVF OK without any evidence of infection. HTN: EF between 40 - 45 %. BP is reasonably controlled with current medications and dietary salt restriction. We will try to use UF to achieve DW and avoid or minimize use of antihypertensive medicatio ns. Anemia of chronic renal disease Iron work up shows Adequate iron stores. I would monitor Hb to keep it around 10 (using ANAYA and Fe as needed). H&H: S/P 2 PRBC TODAY DURING HD 7.9, 8.2 On epo History of gout Profound hypoalbuminemia with diabetic nephropathy and nephrotic syndrome Secondary hyperparathyroidism Getting vit d analog in out pt HD unit Continue phosphate binders for now. He would benefit from paper stripper evaluation. Staphylococcus aureus bacteremia with sepsis: getting Bone scan. The patient has had 4 episodes of staph aureus bacteremia in the past 6 months Transesophageal echocardiogram does not show evidence of endocarditis, He does have a left lower lobe pneumonia at this time His left hip remains painful. Previous MRI in had shown myositis about the hip but no evidence of septic joint or osteomyelitis. Adult failure to thrive: Suspect secondary to chronic staph aureus infection, source not yet identified. He has had recurrent episodes of bacteremia in March 2012, April 2012 (despite being on vancomycin ), June 2012, and again during this hospitalization. He has also been a mobile due to sev ere left hip pain. His overall prognosis is poor unless a source of fever , Recurrent bacter emias STAPH AUREUS . Vancomycin has been dosed accordingly. MRI: LEFT HIP: IMPRESSION: 1. Fluid in the left trochanteric bursa, consistent with bursiti s. This may or may not be infected. 2. Extensive diffuse bilateral muscle and subcutaneous e jay, progressive from the prior examination. Would consider severe myositis and cellulitis. If there is a history of diabetes, consider diabetic muscle infarctions. 3. Small bilateral hip joint effusions. 4. Small enchondroma in the proximal left femur. 5. Mild bilateral ing uinal lymphadenopathy, mildly progressive. C. difficile colitis: Symptoms resolved with metronidazole, currently treatment day #10 of 10. Pt to AVOID NSAID,ADAM II inhibitors,IV Contrast and Nephrotoxic Antibiotics DOSE ALL MEDS PER ESRD D/W DR CHANDRA S/O :PRBC GIVEN DURING HD 08/15/2012 , TOLERATING HD WELL WITH UF 3 L TO TOLERANCE . Vancomycin Rx needs to be faxed to HD UNIT BY FREIGHT CAR INSPECTOR D/W EDUCATED PT ON FLUID RESTRICTION 1.5 L/24 hrs Time spend over 25 minutes of time spent evaluating the patient, reviewing the data, formul ating a plan and discussion with patient and hospitalist team, more than half of the time sp ent in counseling and coordination of care. CM:Discharge planning update: CM called to follow-up if [place] had an available bed. Dominick Willoughby spoke with [facility] male beds available at this time. Pt continued to have SNF plac ement at [facility] in [place] for when medically stable for discharge. SEAN SOLORZANO MD 10/14/2012 onversio n Transaction, Provider Unknown - 10/14/2012 1:29 PM PDTFormatting of this note might be di fferent from the original. Progress Notes by Macho Abraham MS at 10/14/12 1329 Author: Macho Abraham MS Service: (none) Author Type: Rock Picker Filed: 10/14/12 4849 Date of Service: 10/14/12 1329 Status: Addendum Lithographic Printing Machinist: Macho Abraham MS (Rock Picker) Related Notes: Original Note by Macho Abraham MS (Rock Picker) filed at 10/14/12 1660 RADHA called [facility] ([place] [phone]) to update on discharge status and faxed updated ID i nformation (vanco with HD) Cm also called Ophelia Tong the [facility] RN for marty [phone] and let her know that transportation (they coordinate dialysis t [facility] in [place]) will be needed. RADHA also spoke with pt's spouse who is in the room w [facility] pt and encouraged her to call her daughter to make arrangements for her to get back to [place] on Saturday if pt is discharged. RADHA spoke with RN who reports that pt may need ambula nce transportation. Awaiting d/c orders. onver quique Transaction, Provider Unknown - 10/14/2012 10:51 AM PDT Progress Notes by Ruslan Amezquita PTA at 10/14/12 1051 Author: Ruslan Amezquita PTA Service: (none) Author Type: Metal Window Frame Maker Filed: 10/14/12 1051 Date of Service: 10/14/12 105 Status: Signed Lithographic Printing Machinist: Ruslan Amezquita PTA (Metal Window Frame Maker) 10/14/12 1050 PT Last Visit PT Received On 10/14/12 Requires PT Follow Up Yes Cognition Overall Cognitive Status WFL Orientation Level Oriented Bed Mobility Supine to Sit Max assist (BLEs OOB & trunk to upright) Scooting Maximal assist Transfers Sit to/from Stand Maximal assist (to arise AND lower) Bed to/from Chair Maximal assist (to arise AND lower) Stand Pivot Transfers Maximal assist (to arise AND lower) Supine Supine-Exercise Type Ankle pumps;Quad sets;Glut sets;SLR;ABD/ADD;Heel slides Activity Tolerance Activity Tolerance Patient limited by fatigue Plan Treatment/Interventions Continue per Primary PT POC Progress Progressing toward goals Recommendation Recommendations SNF Trevor Lockett - 10/14/2012 9:20 AM PDTFormatting of this note might be different from the origina l. Progress Notes by Trevor Escobar DO at 10/14/12 09 Author: Trevor Escobar DO Service: (none) Author Type: Physician Filed: 10/14/12 0937 Date of Service: 10/14/12919 Status: Signed Lithographic Printing Machinist: Trevor Escobar DO (Physician) [facility] Service: Infectious Disease Progress Note Hospital Day: LOS: 11 days Post-Op Day: * No surgery found * SUBJECTIVE Patient Summary: 47 y.o. male with significant past medical history of staph aureus b acteremia in June of this year as well as prior episodes in the remote past who presents with recurrent staph aureus bacteremia. The patient's previous episode of infection had been treated with 4 weeks of intravenous vancomycin. The plan had been to treat for 6-8 weeks, b ut in the process of a readmission followed by a discharge, his antibiotics were discontinue d after approximately 4 weeks. At that time he followed up in the ID clinic, he had been on antibiotics for more than one month and was doing well clinically at that time. He now retur ns with another episode of recurrent staph aureus bacteremia. It has been verified that his left arm AV fistula is negative. He has had transesophageal echocardiogram in June and ag ain during this hospitalization, both reassuring. He has had severe pain in the left hip. CC: C. Difficile, staph aureus bacteremia, left hip pain Chart reviewed: Orthopedic consultation reviewed. No plan for surgical intervention. Subjective The patient reports that left hip pain is about the same. He denies any cough or shortness of breath.He has about 2 loose stools per day, no abdominal pain or cramps. ROS No fever, chills sweats. No nausea, vomiting. No rashes or pruritis. No oral pain. Scheduled Medications carvedilol 3.125 mg Oral BID WC cholecalciferol 2,000 Units Oral Daily citalopram 20 mg Oral Nightly epoetin laena 10,000 Units Intravenous QMWF ergocalciferol 50,000 Units Oral Weekly heparin (porcine) 1,000 Units Intravenous QMWF heparin (porcine) 5,000 Units Subcutaneous Q8H heparin (porcine) 500 Units Intravenous QMWF ipratropium-albuterol 3 mL Nebulization Q4H levothyroxine 50 mcg Oral Daily metroNIDAZOLE 500 mg Oral Q8H ALYSSA omeprazole 40 mg Oral Daily polyethylene glycol 17 g Oral BID sevelamer 800 mg Oral TID WC sodium bicarbonate buffer 5 mL Infiltration Once sodium chloride 250 mL Intravenous Once vancomycin 750 mg Intravenous See Admin Instructions vancomycin 750 mg Intravenous Once vitamin B ifzqkyt-F-ajeod acid 1 tablet Oral Daily Continuous Infusions PRN Medications acetaminophen, acetaminophen, albumin human, albuterol, HYDROcodone-acetaminophen, lidocain e buffered 1%, ondansetron, ondansetron OBJECTIVE Vital Signs: BP 135/65 | Pulse 71 | Temp(Src) 99 F (37.2 C) (Axillary) | Resp 16 | Ht 1.702 m (5' 7" ) | Wt 70 kg (154 lb 5.2 oz) | BMI 24.17 kg/m2 | SpO2 100% Temp (24hrs), Av.1 F (36.7 C), Min:97.6 F (36.4 C), Max:99 F (37.2 C) Physical Exam Exam: Const: Vitals reviewed. No acute distress Skin: No rashes, no edema; Left upper extremity AV fistula site is unremarkable. ENT: No thrush. Lungs: CTAB, no rales or wheezes Heart: RRR, no murmur Abd: soft, NT, + bowel sounds Musculoskeletal: Left hip is mildly tender lateral and posterior to the greater trochanter. No anterior tenderness. DATA CBC: Lab Results Component Value Date WBC 6.5 10/14/2012 RBC 3.64* 10/14/2012 HGB 10.0* 10/14/2012 HCT 30.7* 10/14/2012 MCV 84.3 10/14/2012 MCH 27.5 10/14/2012 MCHC 32.6 10/14/2012 RDW 46.8 10/14/2012 PLT 406* 10/14/2012 MPV 7.2 10/14/2012 DIFFTYPE AUTOMATED 10/14/2012 CMP: Lab Results Component Value Date NA 135 10/14/2012 K 3.6 10/14/2012 CL 99 10/14/2012 CO2 27 10/14/2012 ANIONGAP 13 10/14/2012 GLUF 102* 10/14/2012 BUN 20 10/14/2012 CREATININE 3.66* 10/14/2012 BCR 6 10/14/2012 CA 7.3* 10/14/2012 CA 6.1* 04/02/2012 PROT 6.6 10/13/2012 ALB 1.5* 10/13/2012 GLOB 5.2* 10/13/2012 BILITOT 0.3 10/13/2012 ALP 167* 10/13/2012 AST 17 10/13/2012 ALT 12 10/13/2012 EGFR 19* 10/14/2012 Microbiology: Blood cultures collected x2 onApril 19 negative so far. PROBLEM LIST Principal Problem: *Adult failure to thrive Active Problems: Vitamin d deficiency Secondary hyperparathyroidism (of renal origin) Hypothyroidism Hypoalbuminemia Diabetes mellitus with ESRD (end-stage renal disease) Obesity (BMI 30-39.9) HTN (hypertension) ESRD (end stage renal disease) on dialysis Anemia of chronic kidney failure Gout Hyponatremia PUD (peptic ulcer disease) Weakness generalized C. difficile colitis Fever Bacteremia Staphylococcus aureus bacteremia with sepsis Malnutrition of moderate degree ASSESSMENT & PLAN Adult failure to thrive (10/03/2012) Suspect secondary to chronic staph aureus infection, most likely in the left hip. ESRD (end stage renal disease) on dialysis (04/30/2012) Vancomycin has been dosed accordingly. C. difficile colitis (10/05/2012) Symptoms resolved with metronidazole, currently treatment day #10 of 10. The patient has be en advised of the importance of reporting any increase in his diarrhea, or recurrent abdomin al pain as this could indicate recurrence of C. Difficile and need to restart therapy. The p atient expressed understanding. Staphylococcus aureus bacteremia with sepsis (10/09/2012) Most likely source of chronic infection of the left hip. I appreciate orthopedic consultati on. It is not felt that there is any surgical intervention that would benefit the patient at this point. I will plan to treat for a total of 6 weeks of IV vancomycin which will be comp leted on November 20. Following completion of his treatment, the patient will be placed on oral d oxycycline for an additional 6 months. I hope that the left hip pain will improve sufficient ly to allow him to rehabilitate. Disposition: Ready for discharge from infectious diseases standpoint. Orders written for va ncomycin and weekly labs to November 20. The patient has been advised of the importance of monito ring for recurrent diarrhea. Followup in the ID clinic next week. Code Status: Full Code TREVOR ESCOBAR DO 10/14/2012 Vikram Teixeira MD - 2012 8:43 AM PDT Progress Notes by Vikram Chandra MD at 10/14/12 0843 Author: Vikram Chandra MD Service: Hospitalist Author Type: Physician Filed: 10/14/12 0852 Date of Service: 10/14/1243 Status: Addendum Lithographic Printing Machinist: Vikram Chandra MD (Physician) Related Notes: Original Note by Vikram Chandra MD (Physician) filed at 10/14/12 0851 [facility] Service: Hospitalist Progress Note Pt: Carol Potter AGE/SEX: 47 y.o. male ROOM: [address] [place] [address] : 1965 PCP: [facility] ADMIT DATE: 10/03/2012 TODAY'S DATE: 10/14/2012 Hospital Day/Hospital Course: LOS: [address] Escobar Notes The patient is a 47 y.o. male with significant past medical history of staph aureus bactere titi in June of this year as well as prior episodes in the remote past who presents with r ecurrent staph aureus bacteremia had been treated with 4 weeks of intravenous vancomycin. Th patient presented with generalized weakness and malaise. On admission he had 2 sets of b lood cultures which were actually negative. Blood cultures were of a fever on October 07 and a re both positive for staph aureus, MSSA. He has been treated with various antibiotics over t he course of the hospital stay, and at this time remains on vancomycin. Meropenem was added on 10/10/12 when he had a brief episode of hypoxemia and hypotension following his DANY. The p atient has also been on metronidazole throughout the hospital stay for C. Difficile colitis. The patient reports that he has had persistent left hip pain ever since his episode of bact eremia in June of this year. The patient's left arm AV fistula was created in April by Dr. Meyer. This was created using morongo vein and does not contain any graft material. Recent MRI showed 1. Fluid in the left trochanteric bursa, consistent with bursitis. This may or may not be i nfected. 2. Extensive diffuse bilateral muscle and subcutaneous edema, progressive from the prior ex amination. Would consider severe myositis and cellulitis. If there is a history of diabetes, consider diabetic muscle infarctions. 3. Small bilateral hip joint effusions. 4. Small enchondroma in the proximal left femur. 5. Mild bilateral inguinal lymphadenopathy, mildly progressive. SUBJECTIVE: Patient seen and examine.no fever. CO left hip pain still there but better. Pain is there when he moves left leg No chest pain, SOB, GUERRA. No cough on recumbency. Had no orthopnea or P ND. No Abdominal pain, N/V or fever. Still feeling tired and fatigued. No dizziness or light headedness. Scheduled Medications: carvedilol 3.125 mg Oral BID WC cholecalciferol 2,000 Units Oral Daily citalopram 20 mg Oral Nightly epoetin alena 10,000 Units Intravenous QMWF ergocalciferol 50,000 Units Oral Weekly heparin (porcine) 1,000 Units Intravenous QMWF heparin (porcine) 5,000 Units Subcutaneous Q8H heparin (porcine) 500 Units Intravenous QMWF ipratropium-albuterol 3 mL Nebulization Q4H levothyroxine 50 mcg Oral Daily metroNIDAZOLE 500 mg Oral Q8H ALYSSA omeprazole 40 mg Oral Daily polyethylene glycol 17 g Oral BID sevelamer 800 mg Oral TID WC sodium bicarbonate buffer 5 mL Infiltration Once sodium chloride 250 mL Intravenous Once vancomycin 750 mg Intravenous See Admin Instructions vancomycin 750 mg Intravenous Once vitamin B brkywax-T-qhzyk acid 1 tablet Oral Daily Continuous Infusions PRN Medications acetaminophen, acetaminophen, albumin human, albuterol, HYDROcodone-acetaminophen, lidocain e buffered 1%, ondansetron, ondansetron Allergy: Allergies Allergen Reactions Lisinopril Other (See Comments) "makes me sweat and knocked me out" Penicillins Other (See Comments) Unknown 10/08/12: Patient tolerated Ceftriaxone during previous admissions. OBJECTIVE: Vitals: Patient Vitals for the past 24 hrs: BP Temp Temp src Pulse Resp SpO2 Weight 10/14/12 0730 - - - 71 16 100 % - 10/14/12 0718 135/65 mmHg 99 F (37.2 C) Axillary 76 16 100 % - 10/14/12 0312 140/71 mmHg 98.5 F (36.9 C) Oral 82 18 96 % 70 kg (154 lb 5.2 oz) 10/13/12 2352 128/66 mmHg 98.1 F (36.7 C) Oral 76 18 96 % - 10/13/12 2321 - - - 76 18 98 % - 10/13/12 1948 125/62 mmHg 98.2 F (36.8 C) Oral 75 18 98 % - 10/13/12 1937 - - - 76 16 99 % - 10/13/12 1557 130/67 mmHg - - 84 16 100 % - 10/13/12 1521 - - - 79 16 98 % - 10/13/12 1510 - - - 71 16 99 % - 10/13/12 1401 - - - - - - 70 kg (154 lb 5.2 oz) 10/13/12 1346 125/69 mmHg - - - - - - 10/13/12 1331 121/67 mmHg - - - - - - 10/13/12 1321 127/71 mmHg 98.1 F (36.7 C) - 70 16 - - 10/13/12 1301 122/66 mmHg - - 71 15 - - 10/13/12 1246 126/68 mmHg - - 77 18 - - 10/13/12 1231 125/66 mmHg 97.7 F (36.5 C) - 72 16 - - 10/13/12 1216 126/63 mmHg - - 73 15 - - 10/13/12 1209 126/63 mmHg - - - - - - 10/13/12 1205 - 97.6 F (36.4 C) - - - - - 10/13/12 1200 110/58 mmHg - - 73 16 - - 10/13/12 1146 122/66 mmHg - - 73 15 - - 10/13/12 1131 117/63 mmHg 97.6 F (36.4 C) - 80 16 99 % - 10/13/12 1119 116/62 mmHg 97.8 F (36.6 C) - 69 18 99 % - 10/13/12 1101 115/61 mmHg - - - - - - 10/13/12 1045 116/61 mmHg - - - - - - 10/13/12 1027 118/62 mmHg - - - - - - 10/13/12 1000 - - - - - - 75.9 kg (167 lb 5.3 oz) I&O Detailed Table: Intake/Output Summary (Last 24 hours) at 10/14/12 0843 Last data filed at 10/14/12 0312 Gross per 24 hour Intake 1911 ml Output 4375 ml Net -2464 ml Patient Vitals for the past 96 hrs: Weight 10/14/12 0312 70 kg (154 lb 5.2 oz) 10/13/12 1401 70 kg (154 lb 5.2 oz) 10/13/12 1000 75.9 kg (167 lb 5.3 oz) 10/13/12 0306 75 kg (165 lb 5.5 oz) 10/12/12 0338 69.7 kg (153 lb 10.6 oz) 10/10/12 1308 68.5 kg (151 lb 0.2 oz) 10/10/12 0920 69.6 kg (153 lb 7 oz) Hemodynamics Last 24hrs: Physical Examination: Constitutional: Alert and oriented to person, place, and time. Appears well-developed and w ell-nourished. HEENT: Neck supple, no JVD, non icteric sclera. Cardiovascular: Normal rate, regular rhythm, normal heart [...] There is no rebound and no guarding. Extremeties/Musculoskeletal: Normal range of motion.exhibits no tenderness. exhibits no ed dana. Slight hip tenederness Neurological: Alert and oriented to person, place, and time. Has normal reflexes. display s normal reflexes. No cranial nerve deficit. Exhibits normal muscle tone. Coordination norm al. Skin: Skin is warm and dry. No rash noted. No erythema. No pallor. Psychiatric: Has a normal mood and affect. Behavior is normal. Judgment normal. LABS: Lab 10/14/1241910/13/1242910/12/12432 WBC 6.5 5.6 5.3 HGB 10.0* 8.0* 7.6* HCT 30.7* 25.1* 23.8* PLT 406* 335 352 NEUTOPHILPCT 70.5 67.3 69.9 MONOPCT 12.4* 12.7* 13.3* Lab 10/14/12 0420 10/13/1242910/12/12 04310/11/12 0425 NA 135 131* 133* -- K 3.6 3.8 3.5 -- CL 99 95* 96* -- CO2 27 28 28 -- BUN 20 35* 28* -- CREATININE 3.66* 5.67* 4.81* -- CALCIUM -- -- -- -- PROT -- 6.6 6.2* 6.6 BILITOT -- 0.3 0.3 0.3 ALKPHOS -- -- -- -- ALT -- 12 10 12 AST -- 17 17 36 GLUCOSE -- -- -- -- Phosphorus: Lab Results Component Value Date PHOS 2.6 10/14/2012 Lab 10/14/12 0420 10/13/12 0430 10/12/12 0433 MG 1.9 2.1 2.0 Lab 10/10/12 0250 PHART -- PO2ART -- [id number] -- [id number] -- BEART 4* Lab 10/10/12 1331 10/10/12 0443 10/10/12 0120 CKTOTAL 103 119 71 TROPONINI <0.02 <0.02 <0.02 TROPONINT -- -- -- CKMBINDEX 1.1 1.2 1.1 PROBLEM LIST Principal Problem: *Adult failure to thrive Active Problems: Diabetes mellitus with ESRD (end-stage renal disease) HTN (hypertension) ESRD (end stage renal disease) on dialysis C. difficile colitis Fever Bacteremia Staphylococcus aureus bacteremia with sepsis Malnutrition of moderate degree ASSESSMENT & PLAN 47 YO F with ESRD on HD having Recurrent MSSA Bacteremia Staphylococcus aureus bacteremia with sepsis: Bone scan showed abnormal activity in the left hip area. More likely that could be the edison rce.With MRI showed possible fluid collection with bursitis. He was supposed to have needle aspiration from his left hip. i had detail DW Dr. Allen and he had DW radiologist. Accordin g to him there is not enough fluid to drain and he said his hip has range of motion without much pain. Will continue vanco for now. Adult failure to thrive: Due chronic staph aureus infection more likely from left hip. has had recurrent episodes o f bacteremia in March 2012, April 2012 (despite being on vancomycin), June 2012, and again during this hospitalization. He has also been a mobile due to severe left hip pain. ESRD (end stage renal disease) on dialysis: Vancomycin has been dosed accordingly. C. difficile colitis: Symptoms resolved with metronidazole, currently treatment day #10 of 10. Fever Fever curve improved. Suspect secondary to staph aureus bacteremia. Meropenem can be disco ntinued. Benign HTN: BP was low last night will Stop orvasc Salt restriction to less than 2 g/day Will adjust BP meds according to BP readings DM Type 2: Will continue on OHA with Insulin sliding scale Will follow finger stick and adjust insuline accordingly Malnutrition of moderate degree: Thanks for dietary consult Anemia of ESRD: SP blood transfusion and is better. SS to initiate DC plan VIKRAM CHANDRA MD, FACP 10/14/2012 8:43 AM onversion Transaction , Provider Unknown - 10/14/2012 8:35 AM PDT Progress Notes by Kristina Zendejas RPH at 10/14/12 0835 Author: Kristina Zendejas RPH Service: (none) Author Type: Pharmacist Filed: 10/14/12 0835 Date of Service: 10/14/1235 Status: Signed Lithographic Printing Machinist: Kristina Zendejas RPH (Pharmacist) Vancomycin day 7--Saturday no dialysis, no dose onver quique Transaction, Provider Unknown - 10/13/2012 12:26 PM PDT Progress Notes by Ruslan Amezquita PTA at 10/13/12 1226 Author: Ruslan Amezquita PTA Service: (none) Author Type: Metal Window Frame Maker Filed: 10/13/12 1226 Date of Service: 10/13/12 1226 Status: Signed Lithographic Printing Machinist: Ruslan Amezquita PTA (Metal Window Frame Maker) 10/13/12 1226 PT Last Visit PT Received On 10/13/12 PT Therapy Visit Not available Requires PT Follow Up Unavailable Other Comments Comments receiving HD onver quique Transaction, Provider Unknown - 10/13/2012 11:31 AM PDT Progress Notes by Kristina Zendejas RPH at 10/13/12 1131 Author: Kristina Zendejas RPH Service: (none) Author Type: Pharmacist Filed: 10/13/12 1131 Date of Service: 10/13/12 1131 Status: Signed Lithographic Printing Machinist: Kristina Zendejas RPH (Pharmacist) Vancomycin Day 6 Dialysis [facility] Sent does for today. Kristina Zendejas [place] Sean Willis T - 10/13/2012 10:58 AM PDTFormatting of this note might be different from the origi nal. Progress Notes by Sean Solorzano MD at 10/13/12 1058 Author: Sean Solorzano MD Service: Nephrology Author Type: Physician Filed: 10/13/12 7910 Date of Service: 10/13/121057 Status: Signed Lithographic Printing Machinist: Sean Solorzano MD (Physician) [facility] Service: NEPHROLOGY Progress Note Carol Potter 47 y.o. [id number] male [facility] Hospital Day: LOS: 10 days SUBJECTIVE Patient seen and examined. ADMITTED WITH Adult failure to thrive Carol Potter is a 47 y.o. male who is being followed for ESRD management. He was admitted with C. Difficile colitis and failure to thrive. Hospital course 10/06/12 HD uncomplicated. 10/07/12 Febrile. 10/08/12 Blood culture positive. Given Vancomycin and Fortaz post HD 10/09/12 Continues to be febrile. Blood cultures positive for staph aureus. Concern with asp iration pneumonitis. 10/10/2012; HD Interval history: Carol Potter says that he feels a little bit better today. his , Lily here ROS: No fever, chills sweats. No vomiting. No rashes or pruritis. No oral pain.C/o PAIN LEF T THIGH AND HIP. ROS: As in History of Present Illness. 7 area ROS was done and was otherwise negative. MAY HAVE NEEDLE ASPIRATIN FROM LEFT HIP/BURSA Past Medical History Diagnosis Date Hyperlipidemia Hypertension [...] W/ EGD; Surgeon: John Singleton MD; Location: [facility] ENDOSCOPY; Se rvice: Gastroenterology; Laterality: N/A; Av fistula placement 05/06/2012 Procedure: AV FISTULA; Surgeon: Oskar Meyer MD; Location: [facility] MAIN OR; Service: Vascul ar; Laterality: Left; Left arm possible right Unlisted procedure arthroscopy shoulder rt , ligaments Knee arthroscopy 07/07/2012 Procedure: KNEE - ARTHROSCOPY; Surgeon: Favio Raza MD; Location: [facility] MAIN OR; ervice: Orthopedics; Laterality: Right; After 1530 Catheter removal 07/07/2012 Procedure: DIALYSIS CATHETER REMOVAL; Surgeon: Oskar Meyer MD; Location: [facility] BEDSIDE [place] OCEDURE; Service: General; Laterality: Right; perm cath Dialysis fistula creation 07/07/2012 Procedure: DIALYSIS CATHETER INSERTION; Surgeon: Oskar Meyer MD; Location: [facility] BEDSIDE PROCEDURE; Service: General; Laterality: Left; temporary dialysis catheter Av fistula repair 07/11/2012 Procedure: AV FISTULA GRAFT REPAIR/REVISION; Surgeon: Oskar Meyer MD; Location: [facility] OR; Service: Vascular; Laterality: Left; Superficialization of brachiobasilic fistula and right IJ perm cath insertion Dialysis fistula creation 07/11/2012 Procedure: DIALYSIS CATHETER INSERTION; Surgeon: Oskar Meyer MD; Location: [facility] MAIN OR; Service: Vascular; Laterality: [...] BIOLOGICAL; 2 STEP KIDSUNEMPLOYED BEFORE WORKED AT [employer] NONE ETOH QUIT 15 YEARS AGODRUGS: quit METHAMPHETAMINES PER P ATIENT after the ARF in mar 2012FATHER HAS COLON CANCER, HEART DISEASEMOTHER 15 YEARS AGONO FH KIDNEY PROBLEMS. Family History Problem Relation Age of Onset Heart disease Mother Heart disease Father Diabetes Father Cancer Father colon cancer Scheduled Medications carvedilol 3.125 mg Oral BID WC cholecalciferol 2,000 Units Oral Daily citalopram 20 mg Oral Nightly epoetin alena 10,000 Units Intravenous QMWF ergocalciferol 50,000 Units Oral Weekly heparin (porcine) 1,000 Units Intravenous QMWF heparin (porcine) 5,000 Units Subcutaneous Q8H heparin (porcine) 500 Units Intravenous QMWF ipratropium-albuterol 3 mL Nebulization Q4H levothyroxine 50 mcg Oral Daily metroNIDAZOLE 500 mg Oral Q8H ALYSSA omeprazole 40 mg Oral Daily polyethylene glycol 17 g Oral BID sevelamer 800 mg Oral TID WC sodium bicarbonate buffer 5 mL Infiltration Once sodium chloride 250 mL Intravenous Once vancomycin 750 mg Intravenous See Admin Instructions vancomycin 750 mg Intravenous Once vitamin B kgichvr-V-bzgoj acid 1 tablet Oral Daily Continuous Infusions PRN Medications acetaminophen, acetaminophen, albumin human, albuterol, HYDROcodone-acetaminophen, lidocain e buffered 1%, ondansetron, ondansetron Allergy: Allergies Allergen Reactions Lisinopril Other (See Comments) "makes me sweat and knocked me out" Penicillins Other (See Comments) Unknown 10/08/12: Patient tolerated Ceftriaxone during previous admissions. OBJECTIVE Vital Signs: BP 116/61 | Pulse 74 | Temp(Src) 98.3 F (36.8 C) (Oral) | Resp 18 | Ht 1.702 m (5' 7") | Wt 75.9 kg (167 lb 5.3 oz) | BMI 26.21 kg/m2 | SpO2 98% I&O Detailed Table: I/O last 3 completed shifts: In: 1663 [P.O.:1663] Out: 150 [Urine:150] Weight change: 5.3 kg (11 lb 11 oz) Hemodynamics Last 24hrs: Examination: PT HAS LOST LOTS OF WEIGHT Constitutional: Alert and oriented to person, place, [...] EXT: No pedal edema and pulses are palpable.B/L LE with chronic venous changes, TENDERNESS LEFT THIGH Neurological: No gross focal motor neurologic deficits. Skin: Skin is warm and dry. No rashes, lacerations, erythema or jaundice. Psychiatric: AXOX3, mood and affect ok, memory seems to be intact. Lymph Nodes: Not Palpable Hemodialysis access: Left upper extremity brachiocephalic fistula LABS: IRON: Lab Results Component Value Date IRON 40* 09/10/2012 Lab Results Component Value Date FERRITIN 933* 09/10/2012 LABIRON 35 09/10/2012 CBC: Lab Results Component Value Date WBC 5.6 10/13/2012 RBC 3.03* 10/13/2012 HGB 8.0* 10/13/2012 HCT 25.1* 10/13/2012 MCV 82.7 10/13/2012 MCH 26.3* 10/13/2012 MCHC 31.8* 10/13/2012 RDW 48.1 10/13/2012 PLT 335 10/13/2012 MPV 8.2 10/13/2012 DIFFTYPE AUTOMATED 10/13/2012 CMP: Lab Results Component Value Date NA 131* 10/13/2012 K 3.8 10/13/2012 CL 95* 10/13/2012 CO2 28 10/13/2012 ANIONGAP 12 10/13/2012 GLUF 96 10/13/2012 BUN 35* 10/13/2012 CREATININE 5.67* 10/13/2012 BCR 6 10/13/2012 CA 7.4* 10/13/2012 CA 6.1* 04/02/2012 PROT 6.6 10/13/2012 ALB 1.5* 10/13/2012 GLOB 5.2* 10/13/2012 BILITOT 0.3 10/13/2012 ALP 167* 10/13/2012 AST 17 10/13/2012 ALT 12 10/13/2012 EGFR 11* 10/13/2012 Magnesium: Lab Results Component Value Date MG 2.1 10/13/2012 Phosphorus: Lab Results Component Value Date PHOS 3.3 10/13/2012 PT/INR: Lab Results Component Value Date INR 1.1 09/10/2012 Troponin: Lab Results Component Value Date TROPONINI <0.02 10/10/2012 Lab Results Component Value Date PTHINTACT 255* 04/02/2012 [id number] <12* 04/02/2012 Lab Results Component Value Date TSH 8.41* 09/11/2012 TSH 7.30* 07/06/2012 TSH 16.60* 04/03/2012 Lab Results Component Value Date URICACID 8.2 04/02/2012 Lab Results Component Value Date HGBA1C UNABLE TO CALCULATE 09/11/2012 HGBA1C 6.0 05/14/2012 HGBA1C 5.4 04/03/2012 IMAGING X-ray Hip 2 View Left 10/10/2012 History: 47 year old male with hip pain. Bacteremia Technique: 2 views of the l eft hip. No prior study for comparison. Findings: No erosive change, joint space is symmetr ic. Range of motion normal. No fracture or aggressive lesion, but extensive calcified vascul opathy is appreciated. No subcutaneous emphysema On the AP film there is some lucency about the inferior scrotum near the midline but this may simply be artifactual, should be easily correlated with physical examination. Bones are normal in density and mineralization and th ere is no evident aggressive lesion. Normal round contour of both femoral heads without sign ificant erosive or productive arthropathy. No lytic lesion. Punctate calcification above th e right transverse process of L5. IMPRESSION: No focal disease about the left hip discernib le to this technique. If infection is suspect, note this examination is of low sensitivity both for osteomyelitis and for septic arthropathy. Xr Abdomen 1 View 10/06/2012 CAROL POTTER XR ABDOMEN 1 VIEW 10/06/2012 11:43 AM HISTORY: 47 years. Male. Abd ominal pain. TECHNIQUE: XR ABDOMEN 1 VIEW. COMPARISON: CT abdomen pelvis 04/13/2012. FIND INGS: Bowel gas pattern is normal. No evidence of bowel obstruction or free air. The outli lesley of the abdominal organs and psoas muscles are normal. No suspicious pathologic calcific ations identified. No significant skeletal abnormality identified in abdomen or pelvis. IM PRESSION: 1. No acute findings in the abdomen. Nm Bone Scan 3 Phase 10/11/2012 EXAM: TRIPLE-PHASE BONE SCAN LIMITED EXAM DATE: 10/11/2012 04:52 PM. CLINICAL H ISTORY: Infection. Left hip pain. Bacteremia. COMPARISON: None. TECHNIQUE: Patient was inj ected with 32 mCi of technetium 99m MDP intravenously with flow phase gamma camera imaging a nteriorly over the hips, 5 seconds per frame for 1 minute. Subsequently, blood pool images o f the hips were obtained. The patient returned 3 hours later for multiple spot images of the pelvis and hips. FINDINGS: Flow Phase: There is symmetric flow to bilateral hips. Bloo d Pool Phase: Increased soft tissue activity noted over the left hip and intratrochanteric r egion. Delayed Phase: Bone scan images of the hip and pelvis reveal normal and symmetric ac tivity. No focal bone abnormalities are appreciated. IMPRESSION: Abnormal soft tissue acti vity over the left hip in the blood pool phase is compatible with soft tissue inflammation. No significant increase in bone activity on the delayed image. RADIA Electronically leonid d by Favio Archuleta MD on Oct 11 2012 6:55PM SITE ID: [id number] X-ray Chest Ap Only 10/10/2012 EXAM: CHEST RADIOGRAPHY EXAM DATE: 10/10/2012 01:27 AM CLINICAL HISTORY: Shor tness of breath. Bacteremia. Failure to thrive. COMPARISON: 10/08/2012. TECHNIQUE: 1 view . FINDINGS: There is borderline cardiomegaly. Dense opacification is seen in the left lowe r lobe. Small left pleural effusion is seen. Right lung is grossly clear. Pulmonary vascular congestion is not seen. IMPRESSION: 1. Left lower lobe consolidation and small left effusi on. 2. Borderline cardiomegaly. RADIA Electronically signed by Douglas Ortiz MD on Oct 10 2012 10:01PM SITE ID: [id number] Xr Chest 1 View 10/08/2012 CAROL POTTER XR CHEST 1 VIEW 10/08/2012 12:20 PM History: 47 years. Male. Acut e shortness of breath. History of hypertension. Chronic renal failure. Technique: AP portab le upright technique was performed at 1225 hours. Findings: Increased density is visualize d at the left lung base, behind the left heart obscuring the left hemidiaphragm, suggesting segmental left lower lobe atelectasis/pneumonia. No visible left pleural effusion. Peribron chial interstitial density is mild in the perihilar areas, extending into the lower lobes, s uggesting mild interstitial pulmonary edema. The right pleural space is clear. Mild cardiom egaly is present. The pulmonary justin and mediastinal contours are normal. There is mild calc ification of the thoracic aorta, but no aortic dilatation or tortuosity. No central venous c atheter visualized. Conclusions: 1. Mild interstitial pulmonary edema and cardiomegaly sug gesting acute congestive heart failure. 2. Left lower lobe segmental atelectasis/pneumonia. 3. All findings are new as compared with 07/07/12. Mri Hip Left Without Contrast 10/12/2012 CAROL POTTER MRI HIP LEFT WO CONTRAST 10/12/2012 10:22 AM HISTORY: Left hip pain. Concern for infection. TECHNIQUE: Multiplanar MR imaging was performed to the left hip wi thout gadolinium. FINDINGS: Compared with July 06, 2012. There are multifocal areas of red marrow reconversion in the pelvis and proximal femurs. There is no abnormal signal inte nsity identified that would be suspicious for osteomyelitis. There is no evidence of avascu lar necrosis of the femoral heads. There are small bilateral hip joint effusions, symmetric al in size. There is mild fluid in the left trochanteric bursa, consistent with bursitis. Consider needle aspiration to exclude infected bursitis. There is bilateral inguinal lympha denopathy measuring up to 13 x 24 mm on the left. This is mildly progressive from the prior study. There is a small T2 hyperintense microlobulated lesion in the proximal left femur m easuring 7 mm, probably a small enchondroma. There is severe diffuse bilateral subcutaneous edema, most prominent laterally, nonspecific in etiology. No focal fluid collection is shannon ntified with suggest a soft tissue abscess. There is also moderate to severe bilateral musc le edema, left worse than right involving the gluteus medius and minimus muscles, abductor m uscles, obturator muscles, and iliopsoas muscles. This is nonspecific in etiology and could potentially indicate myositis. This is mildly progressive from the prior examination. If there is a history of long-standing diabetes, then diabetic muscle infarctions would be poss ible. IMPRESSION: 1. Fluid in the left trochanteric bursa, consistent with bursitis. This may or may not be infected. 2. Extensive diffuse bilateral muscle and subcutaneous edema, progressive from the prior examination. Would consider severe myositis and cellulitis. If there is a history of diabetes, consider diabetic muscle infarctions. 3. Small bilateral hi p joint effusions. 4. Small enchondroma in the proximal left femur. 5. Mild bilateral ingu inal lymphadenopathy, mildly progressive. Echo Dany 10/09/2012 Patient Name: CAROL POTTER Date of : 1965 [facility] Physician: Beny Valencia MD INDICATIONS endocarditis CONCLUSIONS 1. The left ventricle i s moderately dilated. 2. Overall left ventricular systolic function is mild-moderately impai red with, an EF between 40 - 45 %. 3. No vegetation visualized. 4. Ffsy-no-bxjstssk mitral r egurgitation is present. 5. There is a trivial pericardial effusion present. FINDINGS ----- --- Procedure: The patient was brought to the catheterization laboratory holding area in the fasting state. Informed consent was obtained after benefits and risks of the procedure wer e discussed with the patient including but not limited to the potential for esophageal punct ure and . The oropharynx was anesthetized with 1% Hurricane spray. After conscious se dation, the transesophageal probe was advanced and placed in the esophagus and multiple proj ections of the cardiovascular structures were acquired and recorded. This was followed by advancement of the probe into the stomach for transgastric imaging. Finally, interrogation of the descending aorta and arch was performed. The probe was removed. The patient tolera gela the procedure well. There were no immediate complications. 2 D, pulsed and continuou s wave form and color images were interpreted in real time. Medications: 3 mg of Versed and Study quality: This was a technically good study. Left Ventricle: The left ventricle is mode rately dilated. Left Ventricle: Left Ventricle: Overall left ventricular systolic function is mild-moderately impaired with, an EF between 40 - 45 %. Left Atrium: The left atrium is normal in size and function. Left Atrium: Normal left atrial appendage without evidence for thrombi. Right Ventricle: The right ventricle is normal in size and function. Right Atrium : The right atrium is normal in size and function. Interatrial Septum: No evidence for intra -atrial shunt by bubble study. Interatrial Septum: No shunt seen with color Doppler. Inter atrial Septum: No shunt seen with bubble study. Aortic Valve: The aortic valve is trileaflet , and appears structurally normal. No aortic stenosis or regurgitation. Aortic Valve: There is mild aortic valve sclerosis without stenosis. Aortic Valve: There is no evidence of aor tic stenosis. Aortic Valve: No vegetation visualized. Mitral Valve: Fcpj-uw-ffzkhefu mitral regurgitation is present. Tricuspid Valve: The tricuspid valve appears structurally normal. Trace/Mild (physiologic) regurgitation. Aorta: Ascending aorta, aortic arch and descending thoracic aorta are of normal caliber with no significant atherosclerotic disease. Mass: No m ass visualized. Thrombus: No clot visualized. Pericardium: There is a trivial pericardial ef fusion present. MEASUREMENTS Destination Specialist: RADHA Authenticated by: Beny Rousseau Report Date/Time: 10-09-2012 18:41:13 PROBLEM LIST Principal Problem: *Adult failure to thrive Active Problems: Vitamin d deficiency Secondary hyperparathyroidism (of renal origin) Hypothyroidism Hypoalbuminemia Diabetes mellitus with ESRD (end-stage renal disease) Obesity (BMI 30-39.9) HTN (hypertension) ESRD (end stage renal disease) on dialysis Anemia of chronic kidney failure Gout Hyponatremia PUD (peptic ulcer disease) Weakness generalized C. difficile colitis Fever Bacteremia Staphylococcus aureus bacteremia with sepsis Malnutrition of moderate degree ASSESSMENT & PLAN ESRD Mr. Potter is a 47 y.o. male patient with ESRD likely secondary to Diabetic nephropathy who is dialyzed Saturday and Saturday at [facility] via Left upper extremity pr imary brachio cephalic fistula (last HD was Saturday10/03/12). He is now admitted with C. Difficile colitis and failure to thrive. Hospitalization has been complicated by staph aureus bacteremia. I will continue maintenance HD. Access: HE AVF OK without any evidence of infection. HTN: EF between 40 - 45 %. BP is reasonably controlled with current medications and dietary salt restriction. We will try to use UF to achieve DW and avoid or minimize use of antihypertensive medicatio ns. Anemia of chronic renal disease Iron work up shows Adequate iron stores. I would monitor Hb to keep it around 10 (using ANAYA and Fe as needed). H&H: S/P 2 PRBC TODAY DURING HD 7.9, 8.2 On epo History of gout Profound hypoalbuminemia with diabetic nephropathy and nephrotic syndrome Secondary hyperparathyroidism Getting vit d analog in out pt HD unit Continue phosphate binders for now. He would benefit from paper stripper evaluation. Staphylococcus aureus bacteremia with sepsis: getting Bone scan. The patient has had 4 episodes of staph aureus bacteremia in the past 6 months Transesophageal echocardiogram does not show evidence of endocarditis, He does have a left lower lobe pneumonia at this time His left hip remains painful. Previous MRI in had shown myositis about the hip but no evidence of septic joint or osteomyelitis. Adult failure to thrive: Suspect secondary to chronic staph aureus infection, source not yet identified. He has had recurrent episodes of bacteremia in March 2012, April 2012 (despite being on vancomycin ), June 2012, and again during this hospitalization. He has also been a mobile due to sev ere left hip pain. His overall prognosis is poor unless a source of fever , Recurrent bacter emias STAPH AUREUS . Vancomycin has been dosed accordingly. MRI: LEFT HIP: IMPRESSION: 1. Fluid in the left trochanteric bursa, consistent with bursiti s. This may or may not be infected. 2. Extensive diffuse bilateral muscle and subcutaneous e jay, progressive from the prior examination. Would consider severe myositis and cellulitis. If there is a history of diabetes, consider diabetic muscle infarctions. 3. Small bilateral hip joint effusions. 4. Small enchondroma in the proximal left femur. 5. Mild bilateral ing uinal lymphadenopathy, mildly progressive. C. difficile colitis: Symptoms resolved with metronidazole, currently treatment day #7 of 10. Pt to AVOID NSAID,ADAM II inhibitors,IV Contrast and Nephrotoxic Antibiotics DOSE ALL MEDS PER ESRD D/W DR CHANDRA HE IS GOING TO CROSS MATCH PRBC TO BE GIVEN DURING HD, and getting it TOLERATING HD WELL WITH UF 3 L TO TOLERANCE Time spend over 25 minutes of time spent evaluating the patient, reviewing the data, formul ating a plan and discussion with patient and hospitalist team, more than half of the time sp ent in counseling and coordination of care. CM:Discharge planning update: CM called to follow-up if [place] had an available bed. Dominick Willoughby spoke with [facility], provate male beds available at this time. Pt continued to have SNF plac ement at [facility] for when medically stable for discharge. SEAN SOLORZANO MD 10/13/2012 onversio n Transaction, Provider Unknown - 10/13/2012 9:24 AM PDTFormatting of this note might be di fferent from the original. Progress Notes by Macho Abraham MS at 10/13/12923 Author: Macho Abraham MS Service: (none) Author Type: Rock Picker Filed: 10/13/12929 Date of Service: 10/13/12923 Status: Addendum Lithographic Printing Machinist: Macho Abraham MS (Rock Picker) Related Notes: Original Note by Macho Abraham MS (Rock Picker) filed at 10/13/12924 Discharge planning update: CM called to follow-up if [place] had an available bed. RADHA s poke with Rhondi, provate male beds available at this time. Pt continued to have SNF placeme nt at [facility] for when medically stable for discharge. Trevor Lockett - 10/13/2012 9:20 AM PDTFormatting of this note might be different from the origina l. Progress Notes by Trevor Escobar DO at 10/13/12919 Author: Trevor Escobar DO Service: (none) Author Type: Physician Filed: 10/13/12924 Date of Service: 10/13/12919 Status: Signed Lithographic Printing Machinist: Trevor Escobar DO (Physician) [facility] Service: Infectious Disease Progress Note Hospital Day: LOS: 10 days Post-Op Day: * No surgery found * SUBJECTIVE Patient Summary: 47 y.o. male with significant past medical history of staph aureus b acteremia in June of this year as well as prior episodes in the remote past who presents with recurrent staph aureus bacteremia. The patient's previous episode of infection had been treated with 4 weeks of intravenous vancomycin. The plan had been to treat for 6-8 weeks, b jaylen in the process of a readmission followed by a discharge, his antibiotics were discontinue d after approximately 4 weeks. At that time he followed up in the ID clinic, he had been on antibiotics for more than one month and was doing well clinically at that time. He now retur ns with another episode of recurrent staph aureus bacteremia. It has been verified that his left arm AV fistula is negative. He has had transesophageal echocardiogram in June and ag ain during this hospitalization, both reassuring. He has had severe pain in the left hip. CC: C. Difficile, staph aureus bacteremia, left hip pain Chart reviewed: No new events. Subjective The patient had one loose bowel movement this morning. He denies any abdominal pain or cram ps. Left hip pain is about the same, and he also feels like it may be moving over to the rig ht side as well. No fevers or chills. ROS No fever, chills sweats. No nausea, vomiting. No rashes or pruritis. No oral pain. Scheduled Medications carvedilol 3.125 mg Oral BID WC cholecalciferol 2,000 Units Oral Daily citalopram 20 mg Oral Nightly epoetin alena 10,000 Units Intravenous QMWF ergocalciferol 50,000 Units Oral Weekly heparin (porcine) 1,000 Units Intravenous QMWF heparin (porcine) 5,000 Units Subcutaneous Q8H heparin (porcine) 500 Units Intravenous QMWF ipratropium-albuterol 3 mL Nebulization Q4H levothyroxine 50 mcg Oral Daily metroNIDAZOLE 500 mg Oral Q8H ALYSSA omeprazole 40 mg Oral Daily polyethylene glycol 17 g Oral BID sevelamer 800 mg Oral TID WC sodium bicarbonate buffer 5 mL Infiltration Once sodium chloride 250 mL Intravenous Once vancomycin 750 mg Intravenous See Admin Instructions vancomycin 750 mg Intravenous Once vitamin B jkgwlpi-A-eoqtd acid 1 tablet Oral Daily Continuous Infusions PRN Medications acetaminophen, acetaminophen, albumin human, albuterol, HYDROcodone-acetaminophen, lidocain e buffered 1%, ondansetron, ondansetron OBJECTIVE Vital Signs: BP 119/62 | Pulse 74 | Temp(Src) 98.3 F (36.8 C) (Oral) | Resp 18 | Ht 1.702 m (5' 7") | Wt 75 kg (165 lb 5.5 oz) | BMI 25.90 kg/m2 | SpO2 98% Temp (24hrs), Av.3 F (36.8 C), Min:98 F (36.7 C), Max:98.8 F (37.1 C) Physical Exam Exam: Const: Vitals reviewed. No acute distress Skin: No rashes, no edema; Left upper extremity AV fistula site is unremarkable. ENT: No thrush. Lungs: CTAB, no rales or wheezes Heart: RRR, no murmur Abd: soft, NT, + bowel sounds Musculoskeletal: Left hip is mildly tender lateral and posterior to the greater trochanter. No anterior tenderness. He continues to have significant pain with passive hip flexion and external rotation. DATA CBC: Lab Results Component Value Date WBC 5.6 10/13/2012 RBC 3.03* 10/13/2012 HGB 8.0* 10/13/2012 HCT 25.1* 10/13/2012 MCV 82.7 10/13/2012 MCH 26.3* 10/13/2012 MCHC 31.8* 10/13/2012 RDW 48.1 10/13/2012 PLT 335 10/13/2012 MPV 8.2 10/13/2012 DIFFTYPE AUTOMATED 10/13/2012 CMP: Lab Results Component Value Date NA 131* 10/13/2012 K 3.8 10/13/2012 CL 95* 10/13/2012 CO2 28 10/13/2012 ANIONGAP 12 10/13/2012 GLUF 96 10/13/2012 BUN 35* 10/13/2012 CREATININE 5.67* 10/13/2012 BCR 6 10/13/2012 CA 7.4* 10/13/2012 CA 6.1* 04/02/2012 PROT 6.6 10/13/2012 ALB 1.5* 10/13/2012 GLOB 5.2* 10/13/2012 BILITOT 0.3 10/13/2012 ALP 167* 10/13/2012 AST 17 10/13/2012 ALT 12 10/13/2012 EGFR 11* 10/13/2012 Microbiology: Blood cultures collected x2 onApril 19 negative so far. Medical imaging: MRI of the left hip performed without contrast history show the following: IMPRESSION: 1. Fluid in the left trochanteric bursa, consistent with bursitis. This may or may not be i nfected. 2. Extensive diffuse bilateral muscle and subcutaneous edema, progressive from the prior ex amination. Would consider severe myositis and cellulitis. If there is a history of diabetes, consider diabetic muscle infarctions. 3. Small bilateral hip joint effusions. 4. Small enchondroma in the proximal left femur. 5. Mild bilateral inguinal lymphadenopathy, mildly progressive. PROBLEM LIST Principal Problem: *Adult failure to thrive Active Problems: Vitamin d deficiency Secondary hyperparathyroidism (of renal origin) Hypothyroidism Hypoalbuminemia Diabetes mellitus with ESRD (end-stage renal disease) Obesity (BMI 30-39.9) HTN (hypertension) ESRD (end stage renal disease) on dialysis Anemia of chronic kidney failure Gout Hyponatremia PUD (peptic ulcer disease) Weakness generalized C. difficile colitis Fever Bacteremia Staphylococcus aureus bacteremia with sepsis Malnutrition of moderate degree ASSESSMENT & PLAN Adult failure to thrive (10/03/2012) Suspect secondary to chronic staph aureus infection, most likely in the left hip. ESRD (end stage renal disease) on dialysis (04/30/2012) Vancomycin has been dosed accordingly. C. difficile colitis (10/05/2012) Symptoms resolved with metronidazole, currently treatment day #9 of 10. Staphylococcus aureus bacteremia with sepsis (10/09/2012) The most likely source is the left hip. MRI shows fluid in the left trochanteric bursa whic h will be sampled today. His tenderness is primarily in the gluteal region. If there is no i mprovement after today's aspiration, I would still favor incision and drainage/exploration i n the left gluteal area. Discussed with Dr. Chandra. Code Status: Full Code TREVOR ESCOBAR DO 10/13/2012 Vikram Teixeira MD - 2012 9:11 AM PDT Progress Notes by Vikram Chandra MD at 10/13/12910 Author: Vikram Chandra MD Service: Hospitalist Author Type: Physician Filed: 10/13/12 0919 Date of Service: 10/13/12910 Status: Addendum Lithographic Printing Machinist: Vikram Chandra MD (Physician) Related Notes: Original Note by Vikram Chandra MD (Physician) filed at 10/13/12 0918 [facility] Service: Hospitalist Progress Note Pt: Carol Potter AGE/SEX: 47 y.o. male ROOM: [address] [place] [address] : 1965 PCP: [facility] ADMIT DATE: 10/03/2012 TODAY'S DATE: 10/13/2012 Hospital Day/Hospital Course: LOS: [address] Escobar Notes The patient is a 47 y.o. male with significant past medical history of staph aureus bactere titi in June of this year as well as prior episodes in the remote past who presents with r ecurrent staph aureus bacteremia had been treated with 4 weeks of intravenous vancomycin. Th patient presented with generalized weakness and malaise. On admission he had 2 sets of b lood cultures which were actually negative. Blood cultures were of a fever on October 07 and a re both positive for staph aureus, MSSA. He has been treated with various antibiotics over t he course of the hospital stay, and at this time remains on vancomycin. Meropenem was added on 10/10/12 when he had a brief episode of hypoxemia and hypotension following his DANY. The p atient has also been on metronidazole throughout the hospital stay for C. Difficile colitis. The patient reports that he has had persistent left hip pain ever since his episode of bact eremia in June of this year. The patient's left arm AV fistula was created in April by Dr. Meyer. This was created using morongo vein and does not contain any graft material. Recent MRI showed 1. Fluid in the left trochanteric bursa, consistent with bursitis. This may or may not be i nfected. 2. Extensive diffuse bilateral muscle and subcutaneous edema, progressive from the prior ex amination. Would consider severe myositis and cellulitis. If there is a history of diabetes, consider diabetic muscle infarctions. 3. Small bilateral hip joint effusions. 4. Small enchondroma in the proximal left femur. 5. Mild bilateral inguinal lymphadenopathy, mildly progressive. SUBJECTIVE: Patient seen and examine.no fever. Recent finding on MRI noted. CO left hip pain still ther e but better. No chest pain, SOB, GUERRA. No cough on recumbency. Had no orthopnea or PND. No A bdominal pain, N/V or fever. Still feeling tired and fatigued. No dizziness or lightheadedne ss. Scheduled Medications: carvedilol 3.125 mg Oral BID WC cholecalciferol 2,000 Units Oral Daily citalopram 20 mg Oral Nightly epoetin alena 10,000 Units Intravenous QMWF ergocalciferol 50,000 Units Oral Weekly heparin (porcine) 1,000 Units Intravenous QMWF heparin (porcine) 5,000 Units Subcutaneous Q8H heparin (porcine) 500 Units Intravenous QMWF ipratropium-albuterol 3 mL Nebulization Q4H levothyroxine 50 mcg Oral Daily metroNIDAZOLE 500 mg Oral Q8H ALYSSA omeprazole 40 mg Oral Daily polyethylene glycol 17 g Oral BID sevelamer 800 mg Oral TID WC sodium bicarbonate buffer 5 mL Infiltration Once sodium chloride 250 mL Intravenous Once vancomycin 750 mg Intravenous See Admin Instructions vancomycin 750 mg Intravenous Once vitamin B zzyjceu-E-gpbfk acid 1 tablet Oral Daily Continuous Infusions PRN Medications acetaminophen, acetaminophen, albumin human, albuterol, HYDROcodone-acetaminophen, lidocain e buffered 1%, ondansetron, ondansetron Allergy: Allergies Allergen Reactions Lisinopril Other (See Comments) "makes me sweat and knocked me out" Penicillins Other (See Comments) Unknown 10/08/12: Patient tolerated Ceftriaxone during previous admissions. OBJECTIVE: Vitals: Patient Vitals for the past 24 hrs: BP Temp Temp src Pulse Resp SpO2 Height Weight 10/13/12 0736 - - - 74 18 98 % - - 10/13/12 0733 119/62 mmHg - - 74 20 98 % - - 10/13/12 0724 - - - 73 16 98 % - - 10/13/12 0343 - - - 78 16 94 % - - 10/13/12 0335 - - - 72 16 95 % - - 10/13/12 0306 132/64 mmHg 98.3 F (36.8 C) Oral 75 18 97 % 1.702 m (5' 7") 75 kg (165 lb 5.5 oz) 10/13/12 0005 123/60 mmHg 98.3 F (36.8 C) Oral 69 16 97 % - - 10/12/12 2335 - - - 84 18 95 % - - 10/12/127 - - - 70 18 94 % - - 10/12/12 2052 110/59 mmHg 98 F (36.7 C) Oral 70 16 96 % - - 10/12/12 1934 - - - 70 18 96 % - - 10/12/12 1926 - - - 68 18 95 % - - 10/12/12 1556 127/58 mmHg 98 F (36.7 C) Oral 70 14 98 % - - 10/12/12 1503 - - - 68 14 - - - 10/12/12 1500 - - - 68 14 93 % - - 10/12/12 1150 - - - 70 14 - - - 10/12/12 1146 - - - 71 14 92 % - - 10/12/12 1118 118/62 mmHg 98.8 F (37.1 C) Oral 71 16 95 % - - I&O Detailed Table: Intake/Output Summary (Last 24 hours) at 10/13/12 0911 Last data filed at 10/13/12 0306 Gross per 24 hour Intake 1163 ml Output 150 ml Net 1013 ml Patient Vitals for the past 96 hrs: Weight 10/13/12 0306 75 kg (165 lb 5.5 oz) 10/12/12 0338 69.7 kg (153 lb 10.6 oz) 10/10/12 1308 68.5 kg (151 lb 0.2 oz) 10/10/12 0920 69.6 kg (153 lb 7 oz) Hemodynamics Last 24hrs: Physical Examination: Constitutional: Alert and oriented to person, place, and time. Appears well-developed and w ell-nourished. HEENT: Neck supple, no JVD, non icteric sclera. Cardiovascular: Normal rate, regular rhythm, normal heart [...] There is no rebound and no guarding. Extremeties/Musculoskeletal: Normal range of motion.exhibits no tenderness. exhibits no ed dana. Slight hip tenederness Neurological: Alert and oriented to person, place, and time. Has normal reflexes. display s normal reflexes. No cranial nerve deficit. Exhibits normal muscle tone. Coordination norm al. Skin: Skin is warm and dry. No rash noted. No erythema. No pallor. Psychiatric: Has a normal mood and affect. Behavior is normal. Judgment normal. LABS: Lab 10/13/1242910/12/1243210/11/12 0425 WBC 5.6 5.3 6.2 HGB 8.0* 7.6* 7.9* HCT 25.1* 23.8* 24.6* PLT 335 352 351 NEUTOPHILPCT 67.3 69.9 79.4* MONOPCT 12.7* 13.3* 10.7 Lab 10/13/12 0430 10/12/1243210/11/12 0425 NA 131* 133* 135 K 3.8 3.5 3.4* CL 95* 96* 97* CO2 28 28 29 BUN 35* 28* 18 CREATININE 5.67* 4.81* 3.87* CALCIUM -- -- -- PROT 6.6 6.2* 6.6 BILITOT 0.3 0.3 0.3 ALKPHOS -- -- -- ALT 12 10 12 AST 17 17 36 GLUCOSE -- -- -- Phosphorus: Lab Results Component Value Date PHOS 3.3 10/13/2012 Lab 10/13/12 0430 10/12/1243210/11/12 0425 MG 2.1 2.0 1.9 Lab 10/10/12 0250 PHART -- PO2ART -- [id number] -- [id number] -- BEART 4* Lab 10/10/12 1331 10/10/12 0443 10/10/12 0120 CKTOTAL 103 119 71 TROPONINI <0.02 <0.02 <0.02 TROPONINT -- -- -- CKMBINDEX 1.1 1.2 1.1 PROBLEM LIST Principal Problem: *Adult failure to thrive Active Problems: Diabetes mellitus with ESRD (end-stage renal disease) HTN (hypertension) ESRD (end stage renal disease) on dialysis C. difficile colitis Fever Bacteremia Staphylococcus aureus bacteremia with sepsis Malnutrition of moderate degree ASSESSMENT & PLAN 47 YO F with ESRD on HD having Recurrent MSSA Bacteremia Staphylococcus aureus bacteremia with sepsis: Bone scan showed abnormal activity in the left hip area. More likely that could be the edison rce.With MRI showed possible fluid collection with bursitis. He will have needle aspiration from his left hip. Will continue vanco for now. I CRISELDA Allen to see him Adult failure to thrive: Due chronic staph aureus infection more likely from left hip. has had recurrent episodes o f bacteremia in March 2012, April 2012 (despite being on vancomycin), June 2012, and again during this hospitalization. He has also been a mobile due to severe left hip pain. ESRD (end stage renal disease) on dialysis: Vancomycin has been dosed accordingly. C. difficile colitis: Symptoms resolved with metronidazole, currently treatment day #9 of 10. Fever Fever curve improved. Suspect secondary to staph aureus bacteremia. Meropenem can be disco ntinued. Benign HTN: BP was low last night will Stop orvasc Salt restriction to less than 2 g/day Will adjust BP meds according to BP readings DM Type 2: Will continue on OHA with Insulin sliding scale Will follow finger stick and adjust insuline accordingly Malnutrition of moderate degree: Thanks for dietary consult Anemia of ESRD: Will get blood transfusion during HD as Gwendolyn CHANDRA MD, FACP 10/13/2012 9:11 AM Sean Willis T - 09/23 1:33 PM PDT Progress Notes by Sean Solorzano MD at 10/12/12 8806 Author: Sean Solorzano MD Service: Nephrology Author Type: Physician Filed: 10/12/12 9703 Date of Service: 10/12/12 0780 Status: Signed Lithographic Printing Machinist: Sean Solorzano MD (Physician) [facility] Service: NEPHROLOGY Progress Note Carol Potter 47 y.o. [id number] male [facility] Hospital Day: LOS: 9 days SUBJECTIVE Patient seen and examined. ADMITTED WITH Adult failure to thrive Carol Potter is a 47 y.o. male who is being followed for ESRD management. He was admitted with C. Difficile colitis and failure to thrive. Hospital course 10/06/12 HD uncomplicated. 10/07/12 Febrile. 10/08/12 Blood culture positive. Given Vancomycin and Fortaz post HD 10/09/12 Continues to be febrile. Blood cultures positive for staph aureus. Concern with asp iration pneumonitis. 10/10/2012; HD Interval history: Carol Potter says that he feels a little bit better today. his , Lily here ROS: No fever, chills sweats. No vomiting. No rashes or pruritis. No oral pain.C/o PAIN LEF T THIGH AND HIP. ROS: As in History of Present Illness. 7 area ROS was done and was otherwise negative. MAY HAVE NEEDLE ASPIRATIN FROM LEFT HIP/BURSA Past Medical History Diagnosis Date Hyperlipidemia Hypertension [...] W/ EGD; Surgeon: John Singleton MD; Location: [facility] ENDOSCOPY; Se rvice: Gastroenterology; Laterality: N/A; Av fistula placement 05/06/2012 Procedure: AV FISTULA; Surgeon: Oskar Meyer MD; Location: [facility] MAIN OR; Service: Vascul ar; Laterality: Left; Left arm possible right Unlisted procedure arthroscopy shoulder rt , ligaments Knee arthroscopy 07/07/2012 Procedure: KNEE - ARTHROSCOPY; Surgeon: Favio Raza MD; Location: [facility] MAIN OR; S ervice: Orthopedics; Laterality: Right; After 1530 Catheter removal 07/07/2012 Procedure: DIALYSIS CATHETER REMOVAL; Surgeon: Oskar Meyer MD; Location: [facility] BEDSIDE [place] OCEDURE; Service: General; Laterality: Right; perm cath Dialysis fistula creation 07/07/2012 Procedure: DIALYSIS CATHETER INSERTION; Surgeon: Oskar Meyer MD; Location: [facility] BEDSIDE PROCEDURE; Service: General; Laterality: Left; temporary dialysis catheter Av fistula repair 07/11/2012 Procedure: AV FISTULA GRAFT REPAIR/REVISION; Surgeon: Oskar Meyer MD; Location: [facility] OR; Service: Vascular; Laterality: Left; Superficialization of brachiobasilic fistula and right IJ perm cath insertion Dialysis fistula creation 07/11/2012 Procedure: DIALYSIS CATHETER INSERTION; Surgeon: Oskar Meyer MD; Location: [facility] MAIN OR; Service: Vascular; Laterality: [...] BIOLOGICAL; 2 STEP KIDSUNEMPLOYED BEFORE WORKED AT [employer] [place] [employer] NONE ETOH QUIT 15 YEARS AGODRUGS: quit METHAMPHETAMINES PER P ATIENT after the ARF in mar 2012FATHER HAS COLON CANCER, HEART DISEASEMOTHER 15 YEARS AGONO FH KIDNEY PROBLEMS. Family History Problem Relation Age of Onset Heart disease Mother Heart disease Father Diabetes Father Cancer Father colon cancer Scheduled Medications carvedilol 3.125 mg Oral BID WC cholecalciferol 2,000 Units Oral Daily citalopram 20 mg Oral Nightly epoetin alena 10,000 Units Intravenous QMWF ergocalciferol 50,000 Units Oral Weekly heparin (porcine) 1,000 Units Intravenous QMWF heparin (porcine) 5,000 Units Subcutaneous Q8H heparin (porcine) 500 Units Intravenous QMWF ipratropium-albuterol 3 mL Nebulization Q4H levothyroxine 50 mcg Oral Daily metroNIDAZOLE 500 mg Oral Q8H ALYSSA omeprazole 40 mg Oral Daily polyethylene glycol 17 g Oral BID sevelamer 800 mg Oral TID WC sodium bicarbonate buffer 5 mL Infiltration Once sodium chloride 250 mL Intravenous Once vancomycin 750 mg Intravenous See Admin Instructions vitamin B mdacsqu-H-ftmvk acid 1 tablet Oral Daily Continuous Infusions PRN Medications acetaminophen, acetaminophen, albumin human, albuterol, HYDROcodone-acetaminophen, lidocain e buffered 1%, ondansetron, ondansetron Allergy: Allergies Allergen Reactions Lisinopril Other (See Comments) "makes me sweat and knocked me out" Penicillins Other (See Comments) Unknown 10/08/12: Patient tolerated Ceftriaxone during previous admissions. OBJECTIVE Vital Signs: BP 118/62 | Pulse 70 | Temp(Src) 98.8 F (37.1 C) (Oral) | Resp 14 | Ht 1.702 m (5' 7") | Wt 69.7 kg (153 lb 10.6 oz) | BMI 24.07 kg/m2 | SpO2 92% I&O Detailed Table: I/O last 3 completed shifts: In: 1600 [P.O.:1600] Out: 0 Weight change: 0.1 kg (3.5 oz) Hemodynamics Last 24hrs: Examination: PT HAS LOST LOTS OF WEIGHT Constitutional: Alert and oriented to person, place, [...] EXT: No pedal edema and pulses are palpable.B/L LE with chronic venous changes, TENDERNESS LEFT THIGH Neurological: No gross focal motor neurologic deficits. Skin: Skin is warm and dry. No rashes, lacerations, erythema or jaundice. Psychiatric: AXOX3, mood and affect ok, memory seems to be intact. Lymph Nodes: Not Palpable Hemodialysis access: Left upper extremity brachiocephalic fistula LABS: IRON: Lab Results Component Value Date IRON 40* 09/10/2012 Lab Results Component Value Date FERRITIN 933* 09/10/2012 LABIRON 35 09/10/2012 CBC: Lab Results Component Value Date WBC 5.3 10/12/2012 RBC 2.80* 10/12/2012 HGB 7.6* 10/12/2012 HCT 23.8* 10/12/2012 MCV 84.8 10/12/2012 MCH 27.2 10/12/2012 MCHC 32.0 10/12/2012 RDW 49.0 10/12/2012 PLT 352 10/12/2012 MPV 7.3 10/12/2012 DIFFTYPE AUTOMATED 10/12/2012 CMP: Lab Results Component Value Date NA 133* 10/12/2012 K 3.5 10/12/2012 CL 96* 10/12/2012 CO2 28 10/12/2012 ANIONGAP 12 10/12/2012 GLUF 127* 10/12/2012 BUN 28* 10/12/2012 CREATININE 4.81* 10/12/2012 BCR 6 10/12/2012 CA 7.4* 10/12/2012 CA 6.1* 04/02/2012 PROT 6.2* 10/12/2012 ALB 1.4* 10/12/2012 GLOB 4.8 10/12/2012 BILITOT 0.3 10/12/2012 ALP 152* 10/12/2012 AST 17 10/12/2012 ALT 10 10/12/2012 EGFR 14* 10/12/2012 Magnesium: Lab Results Component Value Date MG 2.0 10/12/2012 Phosphorus: Lab Results Component Value Date PHOS 2.6 10/12/2012 PT/INR: Lab Results Component Value Date INR 1.1 09/10/2012 Troponin: Lab Results Component Value Date TROPONINI <0.02 10/10/2012 Lab Results Component Value Date PTHINTACT 255* 04/02/2012 [id number] <12* 04/02/2012 Lab Results Component Value Date TSH 8.41* 09/11/2012 TSH 7.30* 07/06/2012 TSH 16.60* 04/03/2012 Lab Results Component Value Date URICACID 8.2 04/02/2012 Lab Results Component Value Date HGBA1C UNABLE TO CALCULATE 09/11/2012 HGBA1C 6.0 05/14/2012 HGBA1C 5.4 04/03/2012 IMAGING X-ray Hip 2 View Left 10/10/2012 History: 47 year old male with hip pain. Bacteremia Technique: 2 views of the l eft hip. No prior study for comparison. Findings: No erosive change, joint space is symmetr ic. Range of motion normal. No fracture or aggressive lesion, but extensive calcified vascul opathy is appreciated. No subcutaneous emphysema On the AP film there is some lucency about the inferior scrotum near the midline but this may simply be artifactual, should be easily correlated with physical examination. Bones are normal in density and mineralization and th ere is no evident aggressive lesion. Normal round contour of both femoral heads without sign ificant erosive or productive arthropathy. No lytic lesion. Punctate calcification above th e right transverse process of L5. IMPRESSION: No focal disease about the left hip discernib le to this technique. If infection is suspect, note this examination is of low sensitivity both for osteomyelitis and for septic arthropathy. Xr Abdomen 1 View 10/06/2012 CAROL POTTER XR ABDOMEN 1 VIEW 10/06/2012 11:43 AM HISTORY: 47 years. Male. Abd ominal pain. TECHNIQUE: XR ABDOMEN 1 VIEW. COMPARISON: CT abdomen pelvis 04/13/2012. FIND INGS: Bowel gas pattern is normal. No evidence of bowel obstruction or free air. The outli lesley of the abdominal organs and psoas muscles are normal. No suspicious pathologic calcific ations identified. No significant skeletal abnormality identified in abdomen or pelvis. IM PRESSION: 1. No acute findings in the abdomen. Nm Bone Scan 3 Phase 10/11/2012 EXAM: TRIPLE-PHASE BONE SCAN LIMITED EXAM DATE: 10/11/2012 04:52 PM. CLINICAL H ISTORY: Infection. Left hip pain. Bacteremia. COMPARISON: None. TECHNIQUE: Patient was inj ected with 32 mCi of technetium 99m MDP intravenously with flow phase gamma camera imaging a nteriorly over the hips, 5 seconds per frame for 1 minute. Subsequently, blood pool images o f the hips were obtained. The patient returned 3 hours later for multiple spot images of the pelvis and hips. FINDINGS: Flow Phase: There is symmetric flow to bilateral hips. Bloo d Pool Phase: Increased soft tissue activity noted over the left hip and intratrochanteric r egion. Delayed Phase: Bone scan images of the hip and pelvis reveal normal and symmetric ac tivity. No focal bone abnormalities are appreciated. IMPRESSION: Abnormal soft tissue acti vity over the left hip in the blood pool phase is compatible with soft tissue inflammation. No significant increase in bone activity on the delayed image. [facility] Electronically leonid d by Favio Archuleta MD on Oct 11 2012 6:55PM SITE ID: [id number] X-ray Chest Ap Only 10/10/2012 EXAM: CHEST RADIOGRAPHY EXAM DATE: 10/10/2012 01:27 AM CLINICAL HISTORY: Shor tness of breath. Bacteremia. Failure to thrive. COMPARISON: 10/08/2012. TECHNIQUE: 1 view . FINDINGS: There is borderline cardiomegaly. Dense opacification is seen in the left lowe r lobe. Small left pleural effusion is seen. Right lung is grossly clear. Pulmonary vascular congestion is not seen. IMPRESSION: 1. Left lower lobe consolidation and small left effusi on. 2. Borderline cardiomegaly. [facility] Electronically signed by Douglas Ortiz MD on Oct 10 2012 10:01PM SITE ID: [id number] Xr Chest 1 View 10/08/2012 CAROL POTTER XR CHEST 1 VIEW 10/08/2012 12:20 PM History: 47 years. Male. Acut e shortness of breath. History of hypertension. Chronic renal failure. Technique: AP portab le upright technique was performed at 1225 hours. Findings: Increased density is visualize d at the left lung base, behind the left heart obscuring the left hemidiaphragm, suggesting segmental left lower lobe atelectasis/pneumonia. No visible left pleural effusion. Peribron chial interstitial density is mild in the perihilar areas, extending into the lower lobes, s uggesting mild interstitial pulmonary edema. The right pleural space is clear. Mild cardiom egaly is present. The pulmonary justin and mediastinal contours are normal. There is mild calc ification of the thoracic aorta, but no aortic dilatation or tortuosity. No central venous c atheter visualized. Conclusions: 1. Mild interstitial pulmonary edema and cardiomegaly sug gesting acute congestive heart failure. 2. Left lower lobe segmental atelectasis/pneumonia. 3. All findings are new as compared with 07/07/12. Mri Hip Left Without Contrast 10/12/2012 CAROL POTTER MRI HIP LEFT WO CONTRAST 10/12/2012 10:22 AM HISTORY: Left hip pain. Concern for infection. TECHNIQUE: Multiplanar MR imaging was performed to the left hip wi thout gadolinium. FINDINGS: Compared with July 06, 2012. There are multifocal areas of red marrow reconversion in the pelvis and proximal femurs. There is no abnormal signal inte nsity identified that would be suspicious for osteomyelitis. There is no evidence of avascu lar necrosis of the femoral heads. There are small bilateral hip joint effusions, symmetric al in size. There is mild fluid in the left trochanteric bursa, consistent with bursitis. Consider needle aspiration to exclude infected bursitis. There is bilateral inguinal lympha denopathy measuring up to 13 x 24 mm on the left. This is mildly progressive from the prior study. There is a small T2 hyperintense microlobulated lesion in the proximal left femur m easuring 7 mm, probably a small enchondroma. There is severe diffuse bilateral subcutaneous edema, most prominent laterally, nonspecific in etiology. No focal fluid collection is shannon ntified with suggest a soft tissue abscess. There is also moderate to severe bilateral musc le edema, left worse than right involving the gluteus medius and minimus muscles, abductor m uscles, obturator muscles, and iliopsoas muscles. This is nonspecific in etiology and could potentially indicate myositis. This is mildly progressive from the prior examination. If there is a history of long-standing diabetes, then diabetic muscle infarctions would be poss ible. IMPRESSION: 1. Fluid in the left trochanteric bursa, consistent with bursitis. This may or may not be infected. 2. Extensive diffuse bilateral muscle and subcutaneous edema, progressive from the prior examination. Would consider severe myositis and cellulitis. If there is a history of diabetes, consider diabetic muscle infarctions. 3. Small bilateral hi p joint effusions. 4. Small enchondroma in the proximal left femur. 5. Mild bilateral ingu inal lymphadenopathy, mildly progressive. Echo Dany 10/09/2012 Patient Name: CAROL POTTER Date of : 1965 [facility] Physician: Beny Valencia MD INDICATIONS endocarditis CONCLUSIONS 1. The left ventricle i s moderately dilated. 2. Overall left ventricular systolic function is mild-moderately impai red with, an EF between 40 - 45 %. 3. No vegetation visualized. 4. Qlrr-tj-mteljlgc mitral r egurgitation is present. 5. There is a trivial pericardial effusion present. FINDINGS ----- --- Procedure: The patient was brought to the catheterization laboratory holding area in the fasting state. Informed consent was obtained after benefits and risks of the procedure wer e discussed with the patient including but not limited to the potential for esophageal punct ure and . The oropharynx was anesthetized with 1% Hurricane spray. After conscious se dation, the transesophageal probe was advanced and placed in the esophagus and multiple proj ections of the cardiovascular structures were acquired and recorded. This was followed by advancement of the probe into the stomach for transgastric imaging. Finally, interrogation of the descending aorta and arch was performed. The probe was removed. The patient tolera gela the procedure well. There were no immediate complications. 2 D, pulsed and continuou s wave form and color images were interpreted in real time. Medications: 3 mg of Versed and Study quality: This was a technically good study. Left Ventricle: The left ventricle is mode rately dilated. Left Ventricle: Left Ventricle: Overall left ventricular systolic function is mild-moderately impaired with, an EF between 40 - 45 %. Left Atrium: The left atrium is normal in size and function. Left Atrium: Normal left atrial appendage without evidence for thrombi. Right Ventricle: The right ventricle is normal in size and function. Right Atrium : The right atrium is normal in size and function. Interatrial Septum: No evidence for intra -atrial shunt by bubble study. Interatrial Septum: No shunt seen with color Doppler. Inter atrial Septum: No shunt seen with bubble study. Aortic Valve: The aortic valve is trileaflet , and appears structurally normal. No aortic stenosis or regurgitation. Aortic Valve: There is mild aortic valve sclerosis without stenosis. Aortic Valve: There is no evidence of aor tic stenosis. Aortic Valve: No vegetation visualized. Mitral Valve: Aauk-gc-mdriorzm mitral regurgitation is present. Tricuspid Valve: The tricuspid valve appears structurally normal. Trace/Mild (physiologic) regurgitation. Aorta: Ascending aorta, aortic arch and descending thoracic aorta are of normal caliber with no significant atherosclerotic disease. Mass: No m ass visualized. Thrombus: No clot visualized. Pericardium: There is a trivial pericardial ef fusion present. MEASUREMENTS Destination Specialist: RADHA Authenticated by: Beny Rousseau Report Date/Time: 10-09-2012 18:41:13 PROBLEM LIST Principal Problem: *Adult failure to thrive Active Problems: Vitamin d deficiency Secondary hyperparathyroidism (of renal origin) Hypothyroidism Hypoalbuminemia Diabetes mellitus with ESRD (end-stage renal disease) Obesity (BMI 30-39.9) HTN (hypertension) ESRD (end stage renal disease) on dialysis Anemia of chronic kidney failure Gout Hyponatremia PUD (peptic ulcer disease) Weakness generalized C. difficile colitis Fever Bacteremia Staphylococcus aureus bacteremia with sepsis Malnutrition of moderate degree ASSESSMENT & PLAN ESRD Mr. Potter is a 47 y.o. male patient with ESRD likely secondary to Diabetic nephropathy who is dialyzed Saturday and Saturday at [facility] via Left upper extremity pr imary brachio cephalic fistula (last HD was Saturday10/03/12). He is now admitted with C. Difficile colitis and failure to thrive. Hospitalization has been complicated by staph aureus bacteremia. I will continue maintenance HD. Access: HE AVF OK without any evidence of infection. HTN: EF between 40 - 45 %. BP is reasonably controlled with current medications and dietary salt restriction. We will try to use UF to achieve DW and avoid or minimize use of antihypertensive medicatio ns. Volume management: Volume status appears OK with no edema. I will perform UF to achieve normovolemia. Anemia of chronic renal disease Iron work up shows Adequate iron stores. I would monitor Hb to keep it around 10 (using ANAYA and Fe as needed). H&H: 7.9, 8.2 On epo History of gout Profound hypoalbuminemia with diabetic nephropathy and nephrotic syndrome Secondary hyperparathyroidism Getting vit d analog in out pt HD unit Continue phosphate binders for now. He would benefit from paper stripper evaluation. Staphylococcus aureus bacteremia with sepsis: getting Bone scan. The patient has had 4 episodes of staph aureus bacteremia in the past 6 months Transesophageal echocardiogram does not show evidence of endocarditis, He does have a left lower lobe pneumonia at this time His left hip remains painful. Previous MRI in [facility] had shown myositis about the hip but no evidence of septic joint or osteomyelitis. Adult failure to thrive: Suspect secondary to chronic staph aureus infection, source not yet identified. He has had recurrent episodes of bacteremia in March 2012, April 2012 (despite being on vancomycin ), June 2012, and again during this hospitalization. He has also been a mobile due to sev ere left hip pain. His overall prognosis is poor unless a source of fever , Recurrent bacter emias STAPH AUREUS . Vancomycin has been dosed accordingly. MRI: LEFT HIP: IMPRESSION: 1. Fluid in the left trochanteric bursa, consistent with bursit is. This may or may not be infected. 2. Extensive diffuse bilateral muscle and subcutaneou s edema, progressive from the prior examination. Would consider severe myositis and celluli tis. If there is a history of diabetes, consider diabetic muscle infarctions. 3. Small lakhwinder ateral hip joint effusions. 4. Small enchondroma in the proximal left femur. 5. Mild bilat eral inguinal lymphadenopathy, mildly progressive. C. difficile colitis: Symptoms resolved with metronidazole, currently treatment day #7 of 10. Pt to AVOID NSAID,ADAM II inhibitors,IV Contrast and Nephrotoxic Antibiotics DOSE ALL MEDS PER ESRD D/W DR CHANDRA HE IS GOING TO CROSS MATCH PRBC TO BE GIVEN DURING HD Time spend over 25 minutes of time spent evaluating the patient, reviewing the data, formul ating a plan and discussion with patient and hospitalist team, more than half of the time sp ent in counseling and coordination of care. SEAN SOLORZANO MD 10/12/2012 Justine Teixeira MD - 10/12/2012 10:36 AM PDTFormatting of this note might be different from the origin al. Progress Notes by Vikram Chandra MD at 10/12/12 1036 Author: Vikram Chandra MD Service: Hospitalist Author Type: Physician Filed: 10/12/12 1209 Date of Service: 10/12/12 1036 Status: Addendum Lithographic Printing Machinist: Vikram Chandra MD (Physician) Related Notes: Original Note by Vikram Chandra MD (Physician) filed at 10/12/12 0038 [facility] Service: Hospitalist Progress Note Pt: Carol Potter AGE/SEX: 47 y.o. male ROOM: [address] [place] [address] : 1965 PCP: [facility] ADMIT DATE: 10/03/2012 TODAY'S DATE: 10/12/2012 Hospital Day/Hospital Course: LOS: [address] Escobar Notes The patient is a 47 y.o. male with significant past medical history of staph aureus bactere titi in June of this year as well as prior episodes in the remote past who presents with r ecurrent staph aureus bacteremia had been treated with 4 weeks of intravenous vancomycin. Th patient presented with generalized weakness and malaise. On admission he had 2 sets of b lood cultures which were actually negative. Blood cultures were of a fever on October 07 and a re both positive for staph aureus, MSSA. He has been treated with various antibiotics over t he course of the hospital stay, and at this time remains on vancomycin. Meropenem was added on 10/10/12 when he had a brief episode of hypoxemia and hypotension following his DANY. The p atient has also been on metronidazole throughout the hospital stay for C. Difficile colitis. The patient reports that he has had persistent left hip pain ever since his episode of bact eremia in June of this year. The patient's left arm AV fistula was created in April by Dr. Meyer. This was created using morongo vein and does not contain any graft material. Recent MRI showed 1. Fluid in the left trochanteric bursa, consistent with bursitis. This may or may not be i nfected. 2. Extensive diffuse bilateral muscle and subcutaneous edema, progressive from the prior ex amination. Would consider severe myositis and cellulitis. If there is a history of diabetes, consider diabetic muscle infarctions. 3. Small bilateral hip joint effusions. 4. Small enchondroma in the proximal left femur. 5. Mild bilateral inguinal lymphadenopathy, mildly progressive. SUBJECTIVE: Patient seen and examine.Recent finding on MRI noted. CO left hip pain still there but bett er. No chest pain, SOB, GUERRA. No cough on recumbency. Had no orthopnea or PND. No Abdominal p ain, N/V or fever. Still feeling tired and fatigued. No dizziness or lightheadedness. Scheduled Medications: carvedilol 3.125 mg Oral BID WC cholecalciferol 2,000 Units Oral Daily citalopram 20 mg Oral Nightly epoetin alena 10,000 Units Intravenous QMWF ergocalciferol 50,000 Units Oral Weekly heparin (porcine) 1,000 Units Intravenous QMWF heparin (porcine) 5,000 Units Subcutaneous Q8H heparin (porcine) 500 Units Intravenous QMWF ipratropium-albuterol 3 mL Nebulization Q4H levothyroxine 50 mcg Oral Daily metroNIDAZOLE 500 mg Oral Q8H ALYSSA omeprazole 40 mg Oral Daily polyethylene glycol 17 g Oral BID sevelamer 800 mg Oral TID WC sodium chloride 250 mL Intravenous Once vancomycin 750 mg Intravenous See Admin Instructions vitamin B zlvguin-O-figvn acid 1 tablet Oral Daily Continuous Infusions PRN Medications acetaminophen, acetaminophen, albumin human, albuterol, HYDROcodone-acetaminophen, lidocain e buffered 1%, ondansetron, ondansetron Allergy: Allergies Allergen Reactions Lisinopril Other (See Comments) "makes me sweat and knocked me out" Penicillins Other (See Comments) Unknown 10/08/12: Patient tolerated Ceftriaxone during previous admissions. OBJECTIVE: Vitals: Patient Vitals for the past 24 hrs: BP Temp Temp src Pulse Resp SpO2 Weight 10/12/12 0736 110/59 mmHg 98.7 F (37.1 C) Oral 73 16 94 % - 10/12/12 0720 - - - 75 14 - - 10/12/12 0718 - - - 72 14 94 % - 10/12/12 0338 111/57 mmHg 97.8 F (36.6 C) Oral 72 16 95 % 69.7 kg (153 lb 10.6 oz) 10/12/12 0330 - - - - 16 95 % - 10/11/12 2330 - - - 72 16 95 % - 10/11/12 2315 101/56 mmHg 98.1 F (36.7 C) Oral 72 16 95 % - 10/11/12 1943 107/57 mmHg 98.7 F (37.1 C) Oral 72 16 95 % - 10/11/12 1930 - - - 72 16 91 % - 10/11/12 1553 99/53 mmHg 98 F (36.7 C) Oral 70 16 98 % - 10/11/12 1515 - - - 70 14 - - 10/11/12 1512 - - - 69 14 89 % - 10/11/12 1105 108/55 mmHg 98.4 F (36.9 C) Oral 78 18 97 % - 10/11/12 1049 - - - 74 14 - - 10/11/12 1047 - - - 75 16 91 % - I&O Detailed Table: Intake/Output Summary (Last 24 hours) at 10/12/12 1036 Last data filed at 10/12/12 0338 Gross per 24 hour Intake 1150 ml Output 0 ml Net 1150 ml Patient Vitals for the past 96 hrs: Weight 10/12/12 0338 69.7 kg (153 lb 10.6 oz) 10/10/12 1308 68.5 kg (151 lb 0.2 oz) 10/10/12 0920 69.6 kg (153 lb 7 oz) 10/09/12 0403 67.4 kg (148 lb 9.4 oz) 10/08/12 1122 69.1 kg (152 lb 5.4 oz) Hemodynamics Last 24hrs: Physical Examination: Constitutional: Alert and oriented to person, place, and time. Appears well-developed and w ell-nourished. HEENT: Neck supple, no JVD, non icteric sclera. Cardiovascular: Normal rate, regular rhythm, normal heart [...] There is no rebound and no guarding. Extremeties/Musculoskeletal: Normal range of motion.exhibits no tenderness. exhibits no ed dana. Slight hip tenederness Neurological: Alert and oriented to person, place, and time. Has normal reflexes. display s normal reflexes. No cranial nerve deficit. Exhibits normal muscle tone. Coordination norm al. Skin: Skin is warm and dry. No rash noted. No erythema. No pallor. Psychiatric: Has a normal mood and affect. Behavior is normal. Judgment normal. LABS: Lab 10/12/12 0433 10/11/12 0425 10/10/12 0443 WBC 5.3 6.2 8.5 HGB 7.6* 7.9* 8.2* HCT 23.8* 24.6* 25.6* PLT 352 351 368 NEUTOPHILPCT 69.9 79.4* 90.3* MONOPCT 13.3* 10.7 6.0 Lab 10/12/12 0433 10/11/12 0425 10/10/12 0443 NA 133* 135 132* K 3.5 3.4* 4.0 CL 96* 97* 94* CO2 28 29 23 BUN 28* 18 35* CREATININE 4.81* 3.87* 5.23* CALCIUM -- -- -- PROT 6.2* 6.6 6.8 BILITOT 0.3 0.3 0.3 ALKPHOS -- -- -- ALT 10 12 9* AST 17 36 25 GLUCOSE -- -- -- Phosphorus: Lab Results Component Value Date PHOS 2.6 10/12/2012 Lab 10/12/12 0433 10/11/12 0425 10/10/12 0443 MG 2.0 1.9 2.0 Lab 10/10/12 0250 PHART -- PO2ART -- UMD2UMN -- D2QRNAHM -- BEART 4* Lab 10/10/12 1331 10/10/12 0443 10/10/12 0120 CKTOTAL 103 119 71 TROPONINI <0.02 <0.02 <0.02 TROPONINT -- -- -- CKMBINDEX 1.1 1.2 1.1 PROBLEM LIST Principal Problem: *Adult failure to thrive Active Problems: Diabetes mellitus with ESRD (end-stage renal disease) HTN (hypertension) ESRD (end stage renal disease) on dialysis C. difficile colitis Fever Bacteremia Staphylococcus aureus bacteremia with sepsis Malnutrition of moderate degree ASSESSMENT & PLAN 47 YO F with ESRD on HD having Recurrent MSSA Bacteremia Staphylococcus aureus bacteremia with sepsis: Bone scan showed abnormal activity in the left hip area. More likely that could be the edison rce.With MRI showed possible fluid collection with bursitis . The patient has had 4 episodes of staph aureus bacteremia in the past 6 months Transesophageal echocardiogram does not sh ow evidence of endocarditis, He does have a left lower lobe pneumonia at this time which cou ld also be a source of a new bacteremia although I have a difficult time believing that the frequent recurrences are not related. I DW Dr. Allen and wrote for Consult. H e will see him and recommended US guided Needle asp iration. I DW and he will talk to Dr. Allen for this as well. Adult failure to thrive: Due chronic staph aureus infection, source unknown. has had recurrent episodes of bacterem ia in March 2012, April 2012 (despite being on vancomycin), June 2012, and again dur ing this hospitalization. He has also been a mobile due to severe left hip pain. ESRD (end stage renal disease) on dialysis: Vancomycin has been dosed accordingly. C. difficile colitis: Symptoms resolved with metronidazole, currently treatment day #8 of 10. Fever Fever curve improved. Suspect secondary to staph aureus bacteremia. Meropenem can be disco ntinued. Benign HTN: BP was low last night will Stop orvasc Salt restriction to less than 2 g/day Will adjust BP meds according to BP readings DM Type 2: Will continue on OHA with Insulin sliding scale Will follow finger stick and adjust insuline accordingly Malnutrition of moderate degree: Thanks for dietary consult Anemia of ESRD: Dr. Solorzano to decide about blood transfusion duringHD VIKRAM CHANDRA MD, FACP 10/12/2012 10:36 AM Trevor Lockett - 2012 9:30 AM PDT Progress Notes by Trevor Escobar DO at 10/12/12929 Author: Trevor Escobar DO Service: (none) Author Type: Physician Filed: 10/12/1227 Date of Service: 10/12/12929 Status: Signed Lithographic Printing Machinist: Trevor Escobar DO (Physician) [facility] Service: Infectious Disease Progress Note Hospital Day: LOS: 9 days Post-Op Day: * No surgery found * SUBJECTIVE Patient Summary: 47 y.o. male with significant past medical history of staph aureus b acteremia in June of this year as well as prior episodes in the remote past who presents with recurrent staph aureus bacteremia. The patient's previous episode of infection had been treated with 4 weeks of intravenous vancomycin. The plan had been to treat for 6-8 weeks, b ut in the process of a readmission followed by a discharge, his antibiotics were discontinue d after approximately 4 weeks. At that time he followed up in the ID clinic, he had been on antibiotics for more than one month and was doing well clinically at that time. He now retur ns with another episode of recurrent staph aureus bacteremia. It has been verified that his left arm AV fistula is negative. He has had transesophageal echocardiogram in June and ag ain during this hospitalization, both reassuring. He has had severe pain in the left hip. CC: C. Difficile, staph aureus bacteremia, left hip pain Chart reviewed: No new events. Subjective The patient reports that he feels about the same. Left hip remains painful, too painful to consider sitting up or trying to stand. No diarrhea. No abdominal pain or cramps. ROS No fever, chills sweats. No nausea, vomiting. No rashes or pruritis. No oral pain. Scheduled Medications carvedilol 3.125 mg Oral BID WC cholecalciferol 2,000 Units Oral Daily citalopram 20 mg Oral Nightly epoetin alena 10,000 Units Intravenous QMWF ergocalciferol 50,000 Units Oral Weekly heparin (porcine) 1,000 Units Intravenous QMWF heparin (porcine) 5,000 Units Subcutaneous Q8H heparin (porcine) 500 Units Intravenous QMWF ipratropium-albuterol 3 mL Nebulization Q4H levothyroxine 50 mcg Oral Daily metroNIDAZOLE 500 mg Oral Q8H ALYSSA omeprazole 40 mg Oral Daily polyethylene glycol 17 g Oral BID sevelamer 800 mg Oral TID WC sodium chloride 250 mL Intravenous Once vancomycin 750 mg Intravenous See Admin Instructions vitamin B jfvxjpp-E-hmavw acid 1 tablet Oral Daily DISCONTD: amlodipine 10 mg Oral Nightly Continuous Infusions PRN Medications acetaminophen, acetaminophen, albumin human, albuterol, HYDROcodone-acetaminophen, lidocain e buffered 1%, ondansetron, ondansetron OBJECTIVE Vital Signs: BP 110/59 | Pulse 73 | Temp(Src) 98.7 F (37.1 C) (Oral) | Resp 16 | Ht 1.702 m (5' 7") | Wt 69.7 kg (153 lb 10.6 oz) | BMI 24.07 kg/m2 | SpO2 94% Temp (24hrs), Av.3 F (36.8 C), Min:97.8 F (36.6 C), Max:98.7 F (37.1 C) Physical Exam Exam: Const: Vitals reviewed. No acute distress Skin: No rashes, no edema; Left upper extremity AV fistula site is unremarkable. ENT: No thrush. Lungs: CTAB, no rales or wheezes Heart: RRR, no murmur Abd: soft, NT, + bowel sounds Musculoskeletal: Left hip is mildly tender lateral and posterior to the greater trochanter. No anterior tenderness. He continues to have significant pain with passive hip flexion and external rotation. DATA CBC: Lab Results Component Value Date WBC 5.3 10/12/2012 RBC 2.80* 10/12/2012 HGB 7.6* 10/12/2012 HCT 23.8* 10/12/2012 MCV 84.8 10/12/2012 MCH 27.2 10/12/2012 MCHC 32.0 10/12/2012 RDW 49.0 10/12/2012 PLT 352 10/12/2012 MPV 7.3 10/12/2012 DIFFTYPE AUTOMATED 10/12/2012 CMP: Lab Results Component Value Date NA 133* 10/12/2012 K 3.5 10/12/2012 CL 96* 10/12/2012 CO2 28 10/12/2012 ANIONGAP 12 10/12/2012 GLUF 127* 10/12/2012 BUN 28* 10/12/2012 CREATININE 4.81* 10/12/2012 BCR 6 10/12/2012 CA 7.4* 10/12/2012 CA 6.1* 04/02/2012 PROT 6.2* 10/12/2012 ALB 1.4* 10/12/2012 GLOB 4.8 10/12/2012 BILITOT 0.3 10/12/2012 ALP 152* 10/12/2012 AST 17 10/12/2012 ALT 10 10/12/2012 EGFR 14* 10/12/2012 Microbiology: Blood cultures collected x2 onApril 19 negative so far. Medical imaging: NM bone scan Showed the following: IMPRESSION: Abnormal soft tissue activity over the left hip in the blood pool phase is comp atible with soft tissue inflammation. No significant increase in bone activity on the delaye d image. PROBLEM LIST Principal Problem: *Adult failure to thrive Active Problems: Vitamin d deficiency Secondary hyperparathyroidism (of renal origin) Hypothyroidism Hypoalbuminemia Diabetes mellitus with ESRD (end-stage renal disease) Obesity (BMI 30-39.9) HTN (hypertension) ESRD (end stage renal disease) on dialysis Anemia of chronic kidney failure Gout Hyponatremia PUD (peptic ulcer disease) Weakness generalized C. difficile colitis Fever Bacteremia Staphylococcus aureus bacteremia with sepsis Malnutrition of moderate degree ASSESSMENT & PLAN Adult failure to thrive (10/03/2012) Suspect secondary to chronic staph aureus infection, source not yet identified, but the str ongest suspicion is for chronic infection of the left hip septic arthritis or abscess in the gluteal muscles were he had previously been shown to have myositis on MRI. ESRD (end stage renal disease) on dialysis (04/30/2012) Vancomycin has been dosed accordingly. C. difficile colitis (10/05/2012) Symptoms resolved with metronidazole, currently treatment day #8 of 10. Staphylococcus aureus bacteremia with sepsis (10/09/2012) The most likely source is the left hip. Plain film was not helpful. Bone scan is most consi stent with inflammation in the soft tissues around the hip. I have ordered MRI without contr ast and would consider any collection of fluid in the joint or in the adjacent muscles to be The source of his infection. Consider orthopedic consult. Code Status: Full Code TREVOR ESCOBAR DO 10/12/2012 onversion Transaction, Pr ovider Unknown - 10/12/2012 6:23 AM PDT Progress Notes by Yasmin Alberts RPH at 10/12/12622 Author: Yasmin Alberts RPH Service: (none) Author Type: Pharmacist Filed: 10/12/12622 Date of Service: 10/12/12622 Status: Signed Lithographic Printing Machinist: Yasmin Alberts RPH (Pharmacist) Day 5 Vanco tx No HD today-no Vanco dose to be admin YASMIN ALBERTS 10/12/2012 6:23 AM Sean Willis - 10/11/2012 2:58 PM PDTFormatting of this note might be different from the origi nal. Progress Notes by Sean Solorzano MD at 10/11/12 0853 Author: Sean Solorzano MD Service: Nephrology Author Type: Physician Filed: 10/11/12 8999 Date of Service: 10/11/122 Status: Signed Lithographic Printing Machinist: Sean Solorzano MD (Physician) [facility] Service: NEPHROLOGY Progress Note Carol Potter 47 y.o. [id number] male [facility] Hospital Day: LOS: 8 days SUBJECTIVE Patient seen and examined. ADMITTED WITH Adult failure to thrive Carol Potter is a 47 y.o. male who is being followed for ESRD management. He was admitted with C. Difficile colitis and failure to thrive. Hospital course 10/06/12 HD uncomplicated. 10/07/12 Febrile. 10/08/12 Blood culture positive. Given Vancomycin and Fortaz post HD 10/09/12 Continues to be febrile. Blood cultures positive for staph aureus. Concern with asp iration pneumonitis. 10/10/2012; HD Interval history: Carol Potter says that he feels a little bit better today. his , Lily Not here No BM since yesterday. ROS: No fever, chills sweats. No vomiting. No rashes or pruritis. No oral pain.C/o PAIN LEF T THIGH AND HIP. ROS: As in History of Present Illness. 7 area ROS was done and was otherwise negative. GETTING BONE SCAN DONE Past Medical History Diagnosis Date Hyperlipidemia Hypertension [...] W/ EGD; Surgeon: John Singleton MD; Location: [facility] ENDOSCOPY; Se rvice: Gastroenterology; Laterality: N/A; Av fistula placement 05/06/2012 Procedure: AV FISTULA; Surgeon: Oskar Meyer MD; Location: [facility] MAIN OR; Service: Vascul ar; Laterality: Left; Left arm possible right Unlisted procedure arthroscopy shoulder rt , ligaments Knee arthroscopy 07/07/2012 Procedure: KNEE - ARTHROSCOPY; Surgeon: Favio Raza MD; Location: [facility] MAIN OR; ervice: Orthopedics; Laterality: Right; After 1530 Catheter removal 07/07/2012 Procedure: DIALYSIS CATHETER REMOVAL; Surgeon: Oskar Meyer MD; Location: [facility] BEDSIDE [place] OCEDURE; Service: General; Laterality: Right; perm cath Dialysis fistula creation 07/07/2012 Procedure: DIALYSIS CATHETER INSERTION; Surgeon: Oskar Meyer MD; Location: [facility] BEDSIDE PROCEDURE; Service: General; Laterality: Left; temporary dialysis catheter Av fistula repair 07/11/2012 Procedure: AV FISTULA GRAFT REPAIR/REVISION; Surgeon: Oskar Meyer MD; Location: [facility] OR; Service: Vascular; Laterality: Left; Superficialization of brachiobasilic fistula and right IJ perm cath insertion Dialysis fistula creation 07/11/2012 Procedure: DIALYSIS CATHETER INSERTION; Surgeon: Oskar Meyer MD; Location: [facility]; Service: Vascular; Laterality: Left; removed dialysis catheter [...] BIOLOGICAL; 2 STEP KIDSUNEMPLOYED BEFORE WORKED AT [employer] IN [place]/ GOLF COURSESMOKE NONE ETOH QUIT 15 YEARS AGODRUGS: quit METHAMPHETAMINES PER P ATIENT after the ARF in mar 2012FATHER HAS COLON CANCER, HEART DISEASEMOTHER 15 YEARS AGONO FH KIDNEY PROBLEMS. Family History Problem Relation Age of Onset Heart disease Mother Heart disease Father Diabetes Father Cancer Father colon cancer Scheduled Medications carvedilol 3.125 mg Oral BID WC cholecalciferol 2,000 Units Oral Daily citalopram 20 mg Oral Nightly epoetin alena 10,000 Units Intravenous QMWF ergocalciferol 50,000 Units Oral Weekly heparin (porcine) 1,000 Units Intravenous QMWF heparin (porcine) 5,000 Units Subcutaneous Q8H heparin (porcine) 500 Units Intravenous QMWF ipratropium-albuterol 3 mL Nebulization Q4H levothyroxine 50 mcg Oral Daily metroNIDAZOLE 500 mg Oral Q8H ALYSSA omeprazole 40 mg Oral Daily polyethylene glycol 17 g Oral BID sevelamer 800 mg Oral TID WC sodium chloride 250 mL Intravenous Once vancomycin 750 mg Intravenous See Admin Instructions vancomycin 750 mg Intravenous Once vitamin B wqykekr-F-zdvtr acid 1 tablet Oral Daily DISCONTD: amlodipine 10 mg Oral Nightly DISCONTD: meropenem 0.5 g Intravenous Q24H Continuous Infusions PRN Medications acetaminophen, acetaminophen, albumin human, albuterol, HYDROcodone-acetaminophen, lidocain e buffered 1%, ondansetron, ondansetron Allergy: Allergies Allergen Reactions Lisinopril Other (See Comments) "makes me sweat and knocked me out" Penicillins Other (See Comments) Unknown 10/08/12: Patient tolerated Ceftriaxone during previous admissions. OBJECTIVE Vital Signs: BP 108/55 | Pulse 78 | Temp(Src) 98.4 F (36.9 C) (Oral) | Resp 18 | Ht 1.702 m (5' 7") | Wt 68.5 kg (151 lb 0.2 oz) | BMI 23.65 kg/m2 | SpO2 97% I&O Detailed Table: I/O last 3 completed shifts: In: 2485 [P.O.:850; I.V.:935; Other:700] Out: 1800 [Urine:100; Other:1700] Weight change: Hemodynamics Last 24hrs: Examination: PT HAS LOST LOTS OF WEIGHT Constitutional: Alert and oriented to person, place, [...] EXT: No pedal edema and pulses are palpable.B/L LE with chronic venous changes, TENDERNESS LEFT THIGH Neurological: No gross focal motor neurologic deficits. Skin: Skin is warm and dry. No rashes, lacerations, erythema or jaundice. Psychiatric: AXOX3, mood and affect ok, memory seems to be intact. Lymph Nodes: Not Palpable Hemodialysis access: Left upper extremity brachiocephalic fistula LABS: IRON: Lab Results Component Value Date IRON 40* 09/10/2012 Lab Results Component Value Date FERRITIN 933* 09/10/2012 LABIRON 35 09/10/2012 CBC: Lab Results Component Value Date WBC 6.2 10/11/2012 RBC 2.92* 10/11/2012 HGB 7.9* 10/11/2012 HCT 24.6* 10/11/2012 MCV 84.1 10/11/2012 MCH 26.9* 10/11/2012 MCHC 32.0 10/11/2012 RDW 50.8 10/11/2012 PLT 351 10/11/2012 MPV 7.4 10/11/2012 DIFFTYPE AUTOMATED 10/11/2012 CMP: Lab Results Component Value Date NA 135 10/11/2012 K 3.4* 10/11/2012 CL 97* 10/11/2012 CO2 29 10/11/2012 ANIONGAP 12 10/11/2012 GLUF 220* 10/11/2012 BUN 18 10/11/2012 CREATININE 3.87* 10/11/2012 BCR 5 10/11/2012 CA 7.4* 10/11/2012 CA 6.1* 04/02/2012 PROT 6.6 10/11/2012 ALB 1.4* 10/11/2012 GLOB 5.2* 10/11/2012 BILITOT 0.3 10/11/2012 ALP 190* 10/11/2012 AST 36 10/11/2012 ALT 12 10/11/2012 EGFR 18* 10/11/2012 Magnesium: Lab Results Component Value Date MG 1.9 10/11/2012 Phosphorus: Lab Results Component Value Date PHOS 2.2* 10/11/2012 PT/INR: Lab Results Component Value Date INR 1.1 09/10/2012 Troponin: Lab Results Component Value Date TROPONINI <0.02 10/10/2012 Lab Results Component Value Date PTHINTACT 255* 04/02/2012 [id number] <12* 04/02/2012 Lab Results Component Value Date TSH 8.41* 09/11/2012 TSH 7.30* 07/06/2012 TSH 16.60* 04/03/2012 Lab Results Component Value Date URICACID 8.2 04/02/2012 Lab Results Component Value Date HGBA1C UNABLE TO CALCULATE 09/11/2012 HGBA1C 6.0 05/14/2012 HGBA1C 5.4 04/03/2012 IMAGING X-ray Hip 2 View Left 10/10/2012 History: 47 year old male with hip pain. Bacteremia Technique: 2 views of the l eft hip. No prior study for comparison. Findings: No erosive change, joint space is symmetr ic. Range of motion normal. No fracture or aggressive lesion, but extensive calcified vascul opathy is appreciated. No subcutaneous emphysema On the AP film there is some lucency about the inferior scrotum near the midline but this may simply be artifactual, should be easily correlated with physical examination. Bones are normal in density and mineralization and th ere is no evident aggressive lesion. Normal round contour of both femoral heads without sign ificant erosive or productive arthropathy. No lytic lesion. Punctate calcification above th e right transverse process of L5. IMPRESSION: No focal disease about the left hip discernib le to this technique. If infection is suspect, note this examination is of low sensitivity both for osteomyelitis and for septic arthropathy. Xr Abdomen 1 View 10/06/2012 CAROL POTTER XR ABDOMEN 1 VIEW 10/06/2012 11:43 AM HISTORY: 47 years. Male. Abd ominal pain. TECHNIQUE: XR ABDOMEN 1 VIEW. COMPARISON: CT abdomen pelvis 04/13/2012. FIND INGS: Bowel gas pattern is normal. No evidence of bowel obstruction or free air. The outli lesley of the abdominal organs and psoas muscles are normal. No suspicious pathologic calcific ations identified. No significant skeletal abnormality identified in abdomen or pelvis. IM PRESSION: 1. No acute findings in the abdomen. X-ray Chest Ap Only 10/10/2012 EXAM: CHEST RADIOGRAPHY EXAM DATE: 10/10/2012 01:27 AM CLINICAL HISTORY: Shor tness of breath. Bacteremia. Failure to thrive. COMPARISON: 10/08/2012. TECHNIQUE: 1 view . FINDINGS: There is borderline cardiomegaly. Dense opacification is seen in the left lowe r lobe. Small left pleural effusion is seen. Right lung is grossly clear. Pulmonary vascular congestion is not seen. IMPRESSION: 1. Left lower lobe consolidation and small left effusi on. 2. Borderline cardiomegaly. RADIA Electronically signed by Douglas Ortiz MD on Oct 10 2012 10:01PM SITE ID: [id number] Xr Chest 1 View 10/08/2012 CAROL POTTER XR CHEST 1 VIEW 10/08/2012 12:20 PM History: 47 years. Male. Acut e shortness of breath. History of hypertension. Chronic renal failure. Technique: AP portab le upright technique was performed at 1225 hours. Findings: Increased density is visualize d at the left lung base, behind the left heart obscuring the left hemidiaphragm, suggesting segmental left lower lobe atelectasis/pneumonia. No visible left pleural effusion. Peribron chial interstitial density is mild in the perihilar areas, extending into the lower lobes, s uggesting mild interstitial pulmonary edema. The right pleural space is clear. Mild cardiom egaly is present. The pulmonary justin and mediastinal contours are normal. There is mild calc ification of the thoracic aorta, but no aortic dilatation or tortuosity. No central venous c atheter visualized. Conclusions: 1. Mild interstitial pulmonary edema and cardiomegaly sug gesting acute congestive heart failure. 2. Left lower lobe segmental atelectasis/pneumonia. 3. All findings are new as compared with 07/07/12. Echo Dany 10/09/2012 Patient Name: CAROL POTTER Date of : 1965 [facility] Physician: Beny Valencia MD INDICATIONS endocarditis CONCLUSIONS 1. The left ventricle i s moderately dilated. 2. Overall left ventricular systolic function is mild-moderately impai red with, an EF between 40 - 45 %. 3. No vegetation visualized. 4. Yyxn-hd-cakqbqyf mitral r egurgitation is present. 5. There is a trivial pericardial effusion present. FINDINGS ----- --- Procedure: The patient was brought to the catheterization laboratory holding area in the fasting state. Informed consent was obtained after benefits and risks of the procedure wer e discussed with the patient including but not limited to the potential for esophageal punct ure and . The oropharynx was anesthetized with 1% Hurricane spray. After conscious se dation, the transesophageal probe was advanced and placed in the esophagus and multiple proj ections of the cardiovascular structures were acquired and recorded. This was followed by advancement of the probe into the stomach for transgastric imaging. Finally, interrogation of the descending aorta and arch was performed. The probe was removed. The patient tolera gela the procedure well. There were no immediate complications. 2 D, pulsed and continuou s wave form and color images were interpreted in real time. Medications: 3 mg of Versed and Study quality: This was a technically good study. Left Ventricle: The left ventricle is mode rately dilated. Left Ventricle: Left Ventricle: Overall left ventricular systolic function is mild-moderately impaired with, an EF between 40 - 45 %. Left Atrium: The left atrium is normal in size and function. Left Atrium: Normal left atrial appendage without evidence for thrombi. Right Ventricle: The right ventricle is normal in size and function. Right Atrium : The right atrium is normal in size and function. Interatrial Septum: No evidence for intra -atrial shunt by bubble study. Interatrial Septum: No shunt seen with color Doppler. Inter atrial Septum: No shunt seen with bubble study. Aortic Valve: The aortic valve is trileaflet , and appears structurally normal. No aortic stenosis or regurgitation. Aortic Valve: There is mild aortic valve sclerosis without stenosis. Aortic Valve: There is no evidence of aor tic stenosis. Aortic Valve: No vegetation visualized. Mitral Valve: Ondu-xg-pfsxrlao mitral regurgitation is present. Tricuspid Valve: The tricuspid valve appears structurally normal. Trace/Mild (physiologic) regurgitation. Aorta: Ascending aorta, aortic arch and descending thoracic aorta are of normal caliber with no significant atherosclerotic disease. Mass: No m ass visualized. Thrombus: No clot visualized. Pericardium: There is a trivial pericardial ef fusion present. MEASUREMENTS Destination Specialist: RADHA Authenticated by: Beny Rousseau Report Date/Time: 10-09-2012 18:41:13 PROBLEM LIST Principal Problem: *Adult failure to thrive Active Problems: Vitamin d deficiency Secondary hyperparathyroidism (of renal origin) Hypothyroidism Hypoalbuminemia Diabetes mellitus with ESRD (end-stage renal disease) Obesity (BMI 30-39.9) HTN (hypertension) ESRD (end stage renal disease) on dialysis Anemia of chronic kidney failure Gout Hyponatremia PUD (peptic ulcer disease) Weakness generalized C. difficile colitis Fever Bacteremia Staphylococcus aureus bacteremia with sepsis Malnutrition of moderate degree ASSESSMENT & PLAN ESRD Mr. Potter is a 47 y.o. male patient with ESRD likely secondary to Diabetic nephropathy who is dialyzed Saturday and Saturday at [facility] via Left upper extremity pr imary brachio cephalic fistula (last HD was Saturday10/03/12). He is now admitted with C. Difficile colitis and failure to thrive. Hospitalization has been complicated by staph aureus bacteremia. I will continue maintenance HD. Access: HE AVF OK without any evidence of infection. HTN: BP is reasonably controlled with current medications and dietary salt restriction. We will try to use UF to achieve DW and avoid or minimize use of antihypertensive medicatio ns. Volume management: Volume status appears OK with no edema. I will perform UF to achieve normovolemia. Anemia of chronic renal disease Iron work up shows Adequate iron stores. I would monitor Hb to keep it around 10 (using ANAYA and Fe as needed). H&H: 7.9, 8.2 On epo History of gout Profound hypoalbuminemia with diabetic nephropathy and nephrotic syndrome Secondary hyperparathyroidism Getting vit d analog in out pt HD unit Continue phosphate binders for now. He would benefit from paper stripper evaluation. Staphylococcus aureus bacteremia with sepsis: getting Bone scan. The patient has had 4 episodes of staph aureus bacteremia in the past 6 months Transesophageal echocardiogram does not show evidence of endocarditis, He does have a left lower lobe pneumonia at this time His left hip remains painful. Previous MRI in [place] had shown myositis about the hip but no evidence of septic joint or osteomyelitis. Adult failure to thrive: Suspect secondary to chronic staph aureus infection, source not yet identified. He has had recurrent episodes of bacteremia in March 2012, April 2012 (despite being on vancomycin ), June 2012, and again during this hospitalization. He has also been a mobile due to sev ere left hip pain. His overall prognosis is poor unless a source of fever , Recurrent bacte remias STAPH AUREUS . Vancomycin has been dosed accordingly. C. difficile colitis: Symptoms resolved with metronidazole, currently treatment day #7 of 10. Pt to AVOID NSAID,ADAM II inhibitors,IV Contrast and Nephrotoxic Antibiotics DOSE ALL MEDS PER ESRD Time spend over 25 minutes of time spent evaluating the patient, reviewing the data, formul ating a plan and discussion with patient and hospitalist team, more than half of the time sp ent in counseling and coordination of care. EF between 40 - 45 %. SEAN SOLORZANO MD 10/11/2012 onversyovany n Transaction, Provider Unknown - 10/11/2012 11:09 AM PDTFormatting of this note might be di fferent from the original. Progress Notes by Yasmin Alberts RPH at 10/11/12 110 Author: Yasmin Alberts RPH Service: (none) Author Type: Pharmacist Filed: 10/11/12 110 Date of Service: 10/11/121108 Status: Signed Lithographic Printing Machinist: Yasmin Alberts RPH (Pharmacist) Day 4 Vanco tx No dose Vanco today-no HD YASMIN ALBERTS 10/11/2012 11:09 AM Trevor Lockett - 10/11/2012 9:25 AM PDTFormatting of this note might be different from the origina l. Progress Notes by Trevor Escobar DO at 10/11/12 3303 Author: Trevor Escobar DO Service: (none) Author Type: Physician Filed: 10/11/12 100 Date of Service: 10/11/12 0925 Status: Signed Lithographic Printing Machinist: Trevor Escobar DO (Physician) [facility] Service: Infectious Disease Progress Note Hospital Day: LOS: 8 days Post-Op Day: * No surgery found * SUBJECTIVE Patient Summary: 47 y.o. male with significant past medical history of staph aureus b acteremia in June of this year as well as prior episodes in the remote past who presents with recurrent staph aureus bacteremia. The patient's previous episode of infection had been treated with 4 weeks of intravenous vancomycin. The plan had been to treat for 6-8 weeks, b ut in the process of a readmission followed by a discharge, his antibiotics were discontinue d after approximately 4 weeks. At that time he followed up in the ID clinic, he had been on antibiotics for more than one month and was doing well clinically at that time. He now retur ns with another episode of recurrent staph aureus bacteremia. It has been verified that his left arm AV fistula is negative. He has had transesophageal echocardiogram in June and ag ain during this hospitalization, both reassuring. He has had severe pain in the left hip. CC: C. Difficile, staph aureus bacteremia, left hip pain Chart reviewed: No new events. Subjective The patient reports that he feels about the same. Left hip remains painful, too painful to consider setting up or trying to stand. He denies any fevers or chills. He had one single la rge loose bowel movement yesterday. No abdominal pain or cramps. ROS No fever, chills sweats. No nausea, vomiting. No rashes or pruritis. No oral pain. Scheduled Medications amlodipine 10 mg Oral Nightly carvedilol 3.125 mg Oral BID WC cholecalciferol 2,000 Units Oral Daily citalopram 20 mg Oral Nightly epoetin alena 10,000 Units Intravenous QMWF ergocalciferol 50,000 Units Oral Weekly heparin (porcine) 1,000 Units Intravenous QMWF heparin (porcine) 5,000 Units Subcutaneous Q8H heparin (porcine) 500 Units Intravenous QMWF ipratropium-albuterol 3 mL Nebulization Q4H levothyroxine 50 mcg Oral Daily metroNIDAZOLE 500 mg Oral Q8H ALYSSA omeprazole 40 mg Oral Daily polyethylene glycol 17 g Oral BID sevelamer 800 mg Oral TID WC sodium chloride 250 mL Intravenous Once vancomycin 750 mg Intravenous See Admin Instructions vancomycin 750 mg Intravenous Once vitamin B zmmkoah-Z-tyglk acid 1 tablet Oral Daily DISCONTD: meropenem 0.5 g Intravenous Q24H Continuous Infusions PRN Medications acetaminophen, acetaminophen, albumin human, albuterol, HYDROcodone-acetaminophen, lidocain e buffered 1%, ondansetron, ondansetron OBJECTIVE Vital Signs: BP 104/58 | Pulse 77 | Temp(Src) 98.8 F (37.1 C) (Oral) | Resp 18 | Ht 1.702 m (5' 7") | Wt 68.5 kg (151 lb 0.2 oz) | BMI 23.65 kg/m2 | SpO2 96% Temp (24hrs), Av.9 F (37.2 C), Min:98.2 F (36.8 C), Max:99.7 F (37.6 C) Physical Exam Exam: Const: Vitals reviewed. No acute distress Skin: No rashes, no edema; Left upper extremity AV fistula site is unremarkable. ENT: No thrush. Lungs: CTAB, no rales or wheezes Heart: RRR, no murmur Abd: soft, NT, + bowel sounds Musculoskeletal: Left hip is mildly tender lateral and posterior to the greater trochanter. No anterior tenderness. He continues to have significant pain with passive hip flexion and external rotation. DATA CBC: Lab Results Component Value Date WBC 6.2 10/11/2012 RBC 2.92* 10/11/2012 HGB 7.9* 10/11/2012 HCT 24.6* 10/11/2012 MCV 84.1 10/11/2012 MCH 26.9* 10/11/2012 MCHC 32.0 10/11/2012 RDW 50.8 10/11/2012 PLT 351 10/11/2012 MPV 7.4 10/11/2012 DIFFTYPE AUTOMATED 10/11/2012 CMP: Lab Results Component Value Date NA 135 10/11/2012 K 3.4* 10/11/2012 CL 97* 10/11/2012 CO2 29 10/11/2012 ANIONGAP 12 10/11/2012 GLUF 220* 10/11/2012 BUN 18 10/11/2012 CREATININE 3.87* 10/11/2012 BCR 5 10/11/2012 CA 7.4* 10/11/2012 CA 6.1* 04/02/2012 PROT 6.6 10/11/2012 ALB 1.4* 10/11/2012 GLOB 5.2* 10/11/2012 BILITOT 0.3 10/11/2012 ALP 190* 10/11/2012 AST 36 10/11/2012 ALT 12 10/11/2012 EGFR 18* 10/11/2012 Microbiology: Blood cultures collected x2 onApril 19 negative so far. Medical imaging: Plain film of the left hip performed yesterday showed the following: IMPRESSION: No focal disease about the left hip discernible to this technique. If infection is suspect, note this examination is of low sensitivity both for osteomyelitis and for septic arthropathy. PROBLEM LIST Principal Problem: *Adult failure to thrive Active Problems: Vitamin d deficiency Secondary hyperparathyroidism (of renal origin) Hypothyroidism Hypoalbuminemia Diabetes mellitus with ESRD (end-stage renal disease) Obesity (BMI 30-39.9) HTN (hypertension) ESRD (end stage renal disease) on dialysis Anemia of chronic kidney failure Gout Hyponatremia PUD (peptic ulcer disease) Weakness generalized C. difficile colitis Fever Bacteremia Staphylococcus aureus bacteremia with sepsis Malnutrition of moderate degree ASSESSMENT & PLAN Adult failure to thrive (10/03/2012) Suspect secondary to chronic staph aureus infection, source not yet identified. ESRD (end stage renal disease) on dialysis (04/30/2012) Vancomycin has been dosed accordingly. C. difficile colitis (10/05/2012) Symptoms resolved with metronidazole, currently treatment day #7 of 10. Staphylococcus aureus bacteremia with sepsis (10/09/2012) The most likely source is the left hip. Plain film was not helpful. I have ordered a bone s can, which I hope to be performed today. If this is unrevealing, consider CT scan with and w ithout contrast, followed by hemodialysis. Discussed with Dr. Chandra. Code Status: Full Code TREVOR ESCOBAR DO 10/11/2012 Vikram Teixeira MD - 2012 9:21 AM PDT Progress Notes by Vikram Chandra MD at 10/11/12 0921 Author: Vikram Chandra MD Service: Hospitalist Author Type: Physician Filed: 10/11/12 0938 Date of Service: 10/11/12920 Status: Signed Lithographic Printing Machinist: Vikram Chandra MD (Physician) [facility] Service: Hospitalist Progress Note Pt: Carol Potter AGE/SEX: 47 y.o. male ROOM: 6605/6605-1 : 1965 PCP: [facility] ADMIT DATE: 10/03/2012 TODAY'S DATE: 10/11/2012 Hospital Day/Hospital Course: LOS: [address] Escobar Notes The patient is a 47 y.o. male with significant past medical history of staph aureus bactere titi in June of this year as well as prior episodes in the remote past who presents with r ecurrent staph aureus bacteremia had been treated with 4 weeks of intravenous vancomycin. Th patient presented with generalized weakness and malaise. On admission he had 2 sets of b lood cultures which were actually negative. Blood cultures were of a fever on October 07 and a re both positive for staph aureus, MSSA. He has been treated with various antibiotics over t he course of the hospital stay, and at this time remains on vancomycin. Meropenem was added on 10/10/12 when he had a brief episode of hypoxemia and hypotension following his DANY. The p atient has also been on metronidazole throughout the hospital stay for C. Difficile colitis. The patient reports that he has had persistent left hip pain ever since his episode of bact eremia in June of this year. The patient's left arm AV fistula was created in April by Dr. Meyer. This was created using morongo vein and does not contain any graft material. SUBJECTIVE: Patient seen and examine.overnight event noted with low BP but asymptomatic. CO left hip pa in still there. No chest pain, SOB, GUERRA. No cough on recumbency. Had no orthopnea or PND. No Abdominal pain, N/V or fever. Still feeling tired and fatigued. No dizziness or lightheaded ness. Scheduled Medications: amlodipine 10 mg Oral Nightly carvedilol 3.125 mg Oral BID WC cholecalciferol 2,000 Units Oral Daily citalopram 20 mg Oral Nightly epoetin alena 10,000 Units Intravenous QMWF ergocalciferol 50,000 Units Oral Weekly heparin (porcine) 1,000 Units Intravenous QMWF heparin (porcine) 5,000 Units Subcutaneous Q8H heparin (porcine) 500 Units Intravenous QMWF ipratropium-albuterol 3 mL Nebulization Q4H levothyroxine 50 mcg Oral Daily metroNIDAZOLE 500 mg Oral Q8H ALYSSA omeprazole 40 mg Oral Daily polyethylene glycol 17 g Oral BID sevelamer 800 mg Oral TID WC sodium chloride 250 mL Intravenous Once vancomycin 750 mg Intravenous See Admin Instructions vancomycin 750 mg Intravenous Once vitamin B nvfcund-C-dyfol acid 1 tablet Oral Daily DISCONTD: meropenem 0.5 g Intravenous Q24H Continuous Infusions PRN Medications acetaminophen, acetaminophen, albumin human, albuterol, HYDROcodone-acetaminophen, lidocain e buffered 1%, ondansetron, ondansetron Allergy: Allergies Allergen Reactions Lisinopril Other (See Comments) "makes me sweat and knocked me out" Penicillins Other (See Comments) Unknown 10/08/12: Patient tolerated Ceftriaxone during previous admissions. OBJECTIVE: Vitals: Patient Vitals for the past 24 hrs: BP Temp Temp src Pulse Resp SpO2 Weight 10/11/12 0726 104/58 mmHg 98.8 F (37.1 C) Oral 77 18 96 % - 10/11/12 0711 - - - 74 14 - - 10/11/12 0707 - - - 76 16 90 % - 10/11/12 0347 113/55 mmHg 99.7 F (37.6 C) Oral 89 19 99 % - 10/11/12 0259 - - - 81 16 95 % - 10/11/12 0256 - - - 82 16 95 % - 10/10/12 2333 115/58 mmHg 98.2 F (36.8 C) Oral 80 17 95 % - 10/10/12 2147 - - - 78 16 - - 10/10/122136 - - - 79 16 94 % - 10/10/12 2055 100/59 mmHg - - 76 - - - 10/10/12 1937 111/56 mmHg 99.4 F (37.4 C) Oral 84 18 96 % - 10/10/12 1704 - - - 89 14 - - 10/10/12 1702 - - - 89 14 95 % - 10/10/12 1700 132/66 mmHg - - 88 - - - 10/10/12 1615 126/72 mmHg - - 86 - - - 10/10/12 1500 117/59 mmHg - - 80 - - - 10/10/12 1308 111/56 mmHg - - - - - 68.5 kg (151 lb 0.2 oz) 10/10/12 1300 108/56 mmHg - - - - - - 10/10/12 1246 - - - 74 14 - - 10/10/12 1245 115/61 mmHg - - 74 - 99 % - 10/10/12 1244 - - - 74 14 99 % - 10/10/12 1230 123/66 mmHg 98.5 F (36.9 C) - 76 - 100 % - 10/10/12 1215 124/66 mmHg - - 76 - 100 % - 10/10/12 1200 122/67 mmHg - - 76 - 100 % - 10/10/12 1145 117/65 mmHg - - 74 - 100 % - 10/10/12 1130 115/66 mmHg - - 74 - 100 % - 10/10/12 1115 117/63 mmHg - - 74 - 100 % - 10/10/12 1100 110/63 mmHg 98.6 F (37 C) - 76 - 97 % - 10/10/12 1045 111/62 mmHg - - 74 - 100 % - 10/10/12 1030 110/61 mmHg - - 74 - 99 % - 10/10/12 1015 106/59 mmHg - - 74 - 100 % - 10/10/12 1000 106/57 mmHg - - 76 - 100 % - 10/10/12 0950 - - - - - 100 % - 10/10/12 0945 104/59 mmHg - - 76 - 99 % - 10/10/12 0938 104/57 mmHg - - 78 - 100 % - I&O Detailed Table: Intake/Output Summary (Last 24 hours) at 10/11/12 0921 Last data filed at 10/11/12 0347 Gross per 24 hour Intake 1640 ml Output 1800 ml Net -160 ml Patient Vitals for the past 96 hrs: Weight 10/10/12 1308 68.5 kg (151 lb 0.2 oz) 10/10/12 0920 69.6 kg (153 lb 7 oz) 10/09/12 0403 67.4 kg (148 lb 9.4 oz) 10/08/12 1122 69.1 kg (152 lb 5.4 oz) 10/08/12 0752 70.6 kg (155 lb 10.3 oz) 10/08/12 0411 68.1 kg (150 lb 2.1 oz) Hemodynamics Last 24hrs: Physical Examination: Constitutional: Alert and oriented to person, place, and time. Appears well-developed and w ell-nourished. HEENT: Neck supple, no JVD, non icteric sclera. Cardiovascular: Normal rate, regular rhythm, normal heart [...] There is no rebound and no guarding. Extremeties/Musculoskeletal: Normal range of motion.exhibits no tenderness. exhibits no ed dana. Slight hip tenederness Neurological: Alert and oriented to person, place, and time. Has normal reflexes. display s normal reflexes. No cranial nerve deficit. Exhibits normal muscle tone. Coordination norm al. Skin: Skin is warm and dry. No rash noted. No erythema. No pallor. Psychiatric: Has a normal mood and affect. Behavior is normal. Judgment normal. LABS: Lab 10/11/1242410/10/1244210/10/12 0120 WBC 6.2 8.5 7.6 HGB 7.9* 8.2* 9.2* HCT 24.6* 25.6* 29.0* PLT 351 368 423* NEUTOPHILPCT 79.4* 90.3* 85.8* MONOPCT 10.7 6.0 6.7 Lab 10/11/12 04210/10/12 0443 10/10/12 0120 NA 135 132* 134* K 3.4* 4.0 3.9 CL 97* 94* 95* CO2 29 23 28 BUN 18 35* 36* CREATININE 3.87* 5.23* 5.09* CALCIUM -- -- -- PROT 6.6 6.8 7.4 BILITOT 0.3 0.3 0.4 ALKPHOS -- -- -- ALT 12 9* 12 AST 36 25 25 GLUCOSE -- -- -- Phosphorus: Lab Results Component Value Date PHOS 2.2* 10/11/2012 Lab 10/11/12 0425 10/10/12 0443 10/10/12 0120 MG 1.9 2.0 1.9 Lab 10/10/12 0250 PHART -- PO2ART -- DVV0QFT -- [id number] -- BEART 4* Lab 10/10/12 1331 10/10/12 0443 10/10/12 0120 CKTOTAL 103 119 71 TROPONINI <0.02 <0.02 <0.02 TROPONINT -- -- -- CKMBINDEX 1.1 1.2 1.1 PROBLEM LIST Principal Problem: *Adult failure to thrive Active Problems: Diabetes mellitus with ESRD (end-stage renal disease) HTN (hypertension) ESRD (end stage renal disease) on dialysis C. difficile colitis Fever Bacteremia Staphylococcus aureus bacteremia with sepsis Malnutrition of moderate degree ASSESSMENT & PLAN 47 YO F with ESRD on HD having Recurrent MSSA Bacteremia Staphylococcus aureus bacteremia with sepsis: Will get Bone scan. The patient has had 4 episodes of staph aureus bacteremia in the past 6 months Transesophageal echocardiogram does not show evidence of endocarditis, He does hav e a left lower lobe pneumonia at this time which could be a source of a new bacteremia altho ugh I have a difficult time believing that the frequent recurrences are not related. His lef t hip remains painful. Previous MRI in June had shown myositis about the hip but no evide nce of septic joint or osteomyelitis. Adult failure to thrive: Suspect secondary to chronic staph aureus infection, source not yet identified. He has had recurrent episodes of bacteremia in March 2012, April 2012 (despite being on vancomycin ), June 2012, and again during this hospitalization. He has also been a mobile due to sev ere left hip pain. His overall prognosis is poor unless a source of fever current bacteremia s can be found and eliminated. ESRD (end stage renal disease) on dialysis: Vancomycin has been dosed accordingly. C. difficile colitis: Symptoms resolved with metronidazole, currently treatment day #7 of 10. Fever Suspect secondary to staph aureus bacteremia. Meropenem can be discontinued. Benign HTN: BP was low last night will Stop orvasc Salt restriction to less than 2 g/day Will adjust BP meds according to BP readings DM Type 2: Will continue on OHA with Insulin sliding scale Will follow finger stick and adjust insuline accordingly Malnutrition of moderate degree: Will have Dietary consult VIKRAM CHANDRA MD, FACP 10/11/2012 9:21 AM Sean Willis T - 09/22 11:03 PM PDT Progress Notes by Sean Solorzano MD at 10/10/12 3472 Author: Sean Solorzano MD Service: Nephrology Author Type: Physician Filed: 10/10/12 8977 Date of Service: 10/10/122302 Status: Signed Lithographic Printing Machinist: Sean Solorzano MD (Physician) [facility] Service: NEPHROLOGY Progress Note Carol Potter 47 y.o. [phone] [id number] male [facility] Hospital Day: LOS: 7 days SUBJECTIVE Patient seen and examined. ADMITTED WITH Adult failure to thrive Carol Potter is a 47 y.o. male who is being followed for ESRD management. He was admitted with C. Difficile colitis and failure to thrive. Hospital course 10/06/12 HD uncomplicated. 10/07/12 Febrile. 10/08/12 Blood culture positive. Given Vancomycin and Fortaz post HD 10/09/12 Continues to be febrile. Blood cultures positive for staph aureus. Concern with asp iration pneumonitis. 10/10/2012; HD Interval history: Carol Potter says that he feels a little bit better today. his , Lily Not here No BM since yesterday. ROS: No fever, chills sweats. No vomiting. No rashes or pruritis. No oral pain. ROS: As in History of Present Illness. 7 area ROS was done and was otherwise negative. Past Medical History Diagnosis Date Hyperlipidemia [...] W/ EGD; Surgeon: John Singleton MD; Location: [facility] ENDOSCOPY; Se rvice: Gastroenterology; Laterality: N/A; Av fistula placement 05/06/2012 Procedure: AV FISTULA; Surgeon: Oskar Meyer MD; Location: [facility] MAIN OR; Service: Vascul ar; Laterality: Left; Left arm possible right Unlisted procedure arthroscopy shoulder rt , ligaments Knee arthroscopy 07/07/2012 Procedure: KNEE - ARTHROSCOPY; Surgeon: Favio Raza MD; Location: [facility] OR; [facility]; Laterality: Right; After 1530 Catheter removal 07/07/2012 Procedure: DIALYSIS CATHETER REMOVAL; Surgeon: Oskar Meyer MD; Location: [facility] BEDSIDE [place] OCEDURE; Service: General; Laterality: Right; perm cath Dialysis fistula creation 07/07/2012 Procedure: DIALYSIS CATHETER INSERTION; Surgeon: Oskar Meyer MD; Location: [facility] BEDSIDE PROCEDURE; Service: General; Laterality: Left; temporary dialysis catheter Av fistula repair 07/11/2012 Procedure: AV FISTULA GRAFT REPAIR/REVISION; Surgeon: Oskar Meyer MD; Location: [facility]; Service: Vascular; Laterality: Left; Superficialization of brachiobasilic fistula and right IJ perm cath insertion Dialysis fistula creation 07/11/2012 Procedure: DIALYSIS CATHETER INSERTION; Surgeon: Oskar Meyer MD; Location: [facility] OR; Service: Vascular; Laterality: Left; removed dialysis [...] BIOLOGICAL; 2 STEP KIDSUNEMPLOYED BEFORE WORKED AT [employer] [place] [employer] NONE ETOH QUIT 15 YEARS AGODRUGS: quit METHAMPHETAMINES PER P ATIENT after the ARF in mar 2012FATHER HAS COLON CANCER, HEART DISEASEMOTHER 15 YEARS AGONO FH KIDNEY PROBLEMS. Family History Problem Relation Age of Onset Heart disease Mother Heart disease Father Diabetes Father Cancer Father colon cancer Scheduled Medications amlodipine 10 mg Oral Nightly carvedilol 3.125 mg Oral BID WC cholecalciferol 2,000 Units Oral Daily citalopram 20 mg Oral Nightly epoetin alena 10,000 Units Intravenous QMWF ergocalciferol 50,000 Units Oral Weekly fentaNYL flumazenil heparin (porcine) 1,000 Units Intravenous QMWF heparin (porcine) 5,000 Units Subcutaneous Q8H heparin (porcine) 500 Units Intravenous QMWF ipratropium-albuterol 3 mL Nebulization Q4H levothyroxine 50 mcg Oral Daily metroNIDAZOLE 500 mg Oral Q8H ALYSSA naloxone omeprazole 40 mg Oral Daily polyethylene glycol 17 g Oral BID sevelamer 800 mg Oral TID WC sodium chloride 250 mL Intravenous Once sodium chloride 250 mL Intravenous Once vancomycin 750 mg Intravenous See Admin Instructions vancomycin 750 mg Intravenous Once vitamin B ergslcg-U-aztfg acid 1 tablet Oral Daily DISCONTD: meropenem 0.5 g Intravenous Q12H DISCONTD: meropenem 0.5 g Intravenous Q24H Continuous Infusions PRN Medications acetaminophen, acetaminophen, albumin human, albuterol, HYDROcodone-acetaminophen, lidocain e buffered 1%, ondansetron, ondansetron, DISCONTD: midazolam, DISCONTD: zolpidem Allergy: Allergies Allergen Reactions Lisinopril Other (See Comments) "makes me sweat and knocked me out" Penicillins Other (See Comments) Unknown 10/08/12: Patient tolerated Ceftriaxone during previous admissions. OBJECTIVE Vital Signs: BP 100/59 | Pulse 78 | Temp(Src) 99.4 F (37.4 C) (Oral) | Resp 16 | Ht 1.702 m (5' 7") | Wt 68.5 kg (151 lb 0.2 oz) | BMI 23.65 kg/m2 | SpO2 94% I&O Detailed Table: I/O last 3 completed shifts: In: 2155 [P.O.:520; I.V.:935; Other:700] Out: 1800 [Urine:100; Other:1700] Weight change: Hemodynamics Last 24hrs: Examination: Constitutional: [...] EXT: No pedal edema and pulses are palpable.B/L LE with chronic venous changes Neurological: No gross focal motor neurologic deficits. Skin: Skin is warm and dry. No rashes, lacerations, erythema or jaundice. Psychiatric: AXOX3, mood and affect ok, memory seems to be intact. Lymph Nodes: Not Palpable Hemodialysis access: Left upper extremity brachiocephalic fistula LABS: IRON: Lab Results Component Value Date IRON 40* 09/10/2012 Lab Results Component Value Date FERRITIN 933* 09/10/2012 LABIRON 35 09/10/2012 CBC: Lab Results Component Value Date WBC 8.5 10/10/2012 RBC 3.06* 10/10/2012 HGB 8.2* 10/10/2012 HCT 25.6* 10/10/2012 MCV 83.7 10/10/2012 MCH 26.9* 10/10/2012 MCHC 32.2 10/10/2012 RDW 51.6 10/10/2012 PLT 368 10/10/2012 MPV 7.4 10/10/2012 DIFFTYPE AUTOMATED 10/10/2012 CMP: Lab Results Component Value Date NA 132* 10/10/2012 K 4.0 10/10/2012 CL 94* 10/10/2012 CO2 23 10/10/2012 ANIONGAP 18 10/10/2012 GLUF 127* 10/10/2012 BUN 35* 10/10/2012 CREATININE 5.23* 10/10/2012 BCR 7 10/10/2012 CA 7.7* 10/10/2012 CA 6.1* 04/02/2012 PROT 6.8 10/10/2012 ALB 1.4* 10/10/2012 GLOB 5.4* 10/10/2012 BILITOT 0.3 10/10/2012 ALP 111 10/10/2012 AST 25 10/10/2012 ALT 9* 10/10/2012 EGFR 13* 10/10/2012 Magnesium: Lab Results Component Value Date MG 2.0 10/10/2012 Phosphorus: Lab Results Component Value Date PHOS 4.4 10/10/2012 PT/INR: Lab Results Component Value Date INR 1.1 09/10/2012 Troponin: Lab Results Component Value Date TROPONINI <0.02 10/10/2012 Lab Results Component Value Date PTHINTACT 255* 04/02/2012 [id number] <12* 04/02/2012 Lab Results Component Value Date TSH 8.41* 09/11/2012 TSH 7.30* 07/06/2012 TSH 16.60* 04/03/2012 Lab Results Component Value Date URICACID 8.2 04/02/2012 Lab Results Component Value Date HGBA1C UNABLE TO CALCULATE 09/11/2012 HGBA1C 6.0 05/14/2012 HGBA1C 5.4 04/03/2012 IMAGING Xr Abdomen 1 View 10/06/2012 CAROL POTTER XR ABDOMEN 1 VIEW 10/06/2012 11:43 AM HISTORY: 47 years. Male. Abd ominal pain. TECHNIQUE: XR ABDOMEN 1 VIEW. COMPARISON: CT abdomen pelvis 04/13/2012. FIND INGS: Bowel gas pattern is normal. No evidence of bowel obstruction or free air. The outli lesely of the abdominal organs and psoas muscles are normal. No suspicious pathologic calcific ations identified. No significant skeletal abnormality identified in abdomen or pelvis. IM PRESSION: 1. No acute findings in the abdomen. X-ray Chest Ap Only 10/10/2012 EXAM: CHEST RADIOGRAPHY EXAM DATE: 10/10/2012 01:27 AM CLINICAL HISTORY: Shor tness of breath. Bacteremia. Failure to thrive. COMPARISON: 10/08/2012. TECHNIQUE: 1 view . FINDINGS: There is borderline cardiomegaly. Dense opacification is seen in the left lowe r lobe. Small left pleural effusion is seen. Right lung is grossly clear. Pulmonary vascular congestion is not seen. IMPRESSION: 1. Left lower lobe consolidation and small left effusi on. 2. Borderline cardiomegaly. RADIA Electronically signed by oDuglas Ortiz MD on Oct 10 2012 10:01PM SITE ID: [id number] Xr Chest 1 View 10/08/2012 CAROL POTTER XR CHEST 1 VIEW 10/08/2012 12:20 PM History: 47 years. Male. Acut e shortness of breath. History of hypertension. Chronic renal failure. Technique: AP portab le upright technique was performed at 1225 hours. Findings: Increased density is visualize d at the left lung base, behind the left heart obscuring the left hemidiaphragm, suggesting segmental left lower lobe atelectasis/pneumonia. No visible left pleural effusion. Peribron chial interstitial density is mild in the perihilar areas, extending into the lower lobes, s uggesting mild interstitial pulmonary edema. The right pleural space is clear. Mild cardiom egaly is present. The pulmonary justin and mediastinal contours are normal. There is mild calc ification of the thoracic aorta, but no aortic dilatation or tortuosity. No central venous c atheter visualized. Conclusions: 1. Mild interstitial pulmonary edema and cardiomegaly sug gesting acute congestive heart failure. 2. Left lower lobe segmental atelectasis/pneumonia. 3. All findings are new as compared with 07/07/12. Echo Dany 10/09/2012 Patient Name: CAROL POTTER Date of : 1965 [facility] Physician: Beny Valencia MD INDICATIONS endocarditis CONCLUSIONS 1. The left ventricle i s moderately dilated. 2. Overall left ventricular systolic function is mild-moderately impai red with, an EF between 40 - 45 %. 3. No vegetation visualized. 4. Cbtv-fz-qoqeaeux mitral r egurgitation is present. 5. There is a trivial pericardial effusion present. FINDINGS ----- --- Procedure: The patient was brought to the catheterization laboratory holding area in the fasting state. Informed consent was obtained after benefits and risks of the procedure wer e discussed with the patient including but not limited to the potential for esophageal punct ure and . The oropharynx was anesthetized with 1% Hurricane spray. After conscious se dation, the transesophageal probe was advanced and placed in the esophagus and multiple proj ections of the cardiovascular structures were acquired and recorded. This was followed by advancement of the probe into the stomach for transgastric imaging. Finally, interrogation of the descending aorta and arch was performed. The probe was removed. The patient tolera gela the procedure well. There were no immediate complications. 2 D, pulsed and continuou s wave form and color images were interpreted in real time. Medications: 3 mg of Versed and Study quality: This was a technically good study. Left Ventricle: The left ventricle is mode rately dilated. Left Ventricle: Left Ventricle: Overall left ventricular systolic function is mild-moderately impaired with, an EF between 40 - 45 %. Left Atrium: The left atrium is normal in size and function. Left Atrium: Normal left atrial appendage without evidence for thrombi. Right Ventricle: The right ventricle is normal in size and function. Right Atrium : The right atrium is normal in size and function. Interatrial Septum: No evidence for intra -atrial shunt by bubble study. Interatrial Septum: No shunt seen with color Doppler. Inter atrial Septum: No shunt seen with bubble study. Aortic Valve: The aortic valve is trileaflet , and appears structurally normal. No aortic stenosis or regurgitation. Aortic Valve: There is mild aortic valve sclerosis without stenosis. Aortic Valve: There is no evidence of aor tic stenosis. Aortic Valve: No vegetation visualized. Mitral Valve: Ueju-dc-qubxpmtt mitral regurgitation is present. Tricuspid Valve: The tricuspid valve appears structurally normal. Trace/Mild (physiologic) regurgitation. Aorta: Ascending aorta, aortic arch and descending thoracic aorta are of normal caliber with no significant atherosclerotic disease. Mass: No m ass visualized. Thrombus: No clot visualized. Pericardium: There is a trivial pericardial ef fusion present. MEASUREMENTS Destination Specialist: RADHA Authenticated by: Beny Rousseau Report Date/Time: 10-09-2012 18:41:13 PROBLEM LIST Principal Problem: *Adult failure to thrive Active Problems: Vitamin d deficiency Secondary hyperparathyroidism (of renal origin) Hypothyroidism Hypoalbuminemia Diabetes mellitus with ESRD (end-stage renal disease) Obesity (BMI 30-39.9) HTN (hypertension) ESRD (end stage renal disease) on dialysis Anemia of chronic kidney failure Gout Hyponatremia PUD (peptic ulcer disease) Weakness generalized C. difficile colitis Fever Bacteremia Staphylococcus aureus bacteremia with sepsis Malnutrition of moderate degree ASSESSMENT & PLAN ESRD Mr. Potter is a 47 y.o. male patient with ESRD likely secondary to Diabetic nephropathy who is dialyzed Saturday and Saturday at [facility] via Left upper extremity pr imary brachio cephalic fistula (last HD was Saturday10/03/12). He is now admitted with C. Difficile colitis and failure to thrive. Hospitalization has been complicated by staph aureus bacteremia. I will continue maintenance HD. Access: Access looks OK without any evidence of infection. HTN: BP is reasonably controlled with current medications and dietary salt restriction. We will try to use UF to achieve DW and avoid or minimize use of antihypertensive medicatio ns. Volume management: Volume status appears OK with no edema. I will perform UF to achieve normovolemia. Anemia of chronic renal disease Iron work up shows Adequate iron stores. I would monitor Hb to keep it around 10 (using ANAYA and Fe as needed). H&H: 8.2 On epo History of gout Profound hypoalbuminemia with diabetic nephropathy and nephrotic syndrome Secondary hyperparathyroidism Getting vit d analog in out pt HD unit Continue phosphate binders for now. He would benefit from paper stripper evaluation. C diff colitis: He does not have any diarrhea but has fever now with abdominal tenderness. Defer to primary team. Continue flagyl. Staph aureus Bacteremia: ON VANCO, MEROPENAM D/Guille by DR ESCOBAR Pt to AVOID NSAID,ADAM II inhibitors,IV Contrast and Nephrotoxic Antibiotics DOSE ALL MEDS PER ESRD Time spend over 25 minutes of time spent evaluating the patient, reviewing the data, formul ating a plan and discussion with patient and hospitalist team, more than half of the time s pent in counseling and coordination of care. SEAN SOLORZANO MD 10/10/2012 Khanh Azevedo MD - 10/10/2012 4:44 PM PDTFormatting of this note might be different from the o riginal. Progress Notes by Khanh Rangel MD at 10/10/124 Author: Khanh Rangel MD Service: (none) Author Type: Physician Filed: 10/10/12 4692 Date of Service: 10/10/121643 Status: Signed Lithographic Printing Machinist: Khanh Rangel MD (Physician) [facility] Service: Hospitalist Progress Note Hospital Day: LOS: 7 days Post-Op Day: * No surgery found * SUBJECTIVE Events Overnight: P getting dialysis. Resting comfortable. He is complaining of left foot pain. grimaces with trying to move his left leg. ROS: 12 point ROS reviewed and negative other than above. Scheduled Medications amlodipine 10 mg Oral Nightly carvedilol 3.125 mg Oral BID WC cholecalciferol 2,000 Units Oral Daily citalopram 20 mg Oral Nightly epoetin alena 10,000 Units Intravenous QMWF ergocalciferol 50,000 Units Oral Weekly fentaNYL flumazenil heparin (porcine) 1,000 Units Intravenous QMWF heparin (porcine) 5,000 Units Subcutaneous Q8H heparin (porcine) 500 Units Intravenous QMWF ipratropium-albuterol 3 mL Nebulization Q4H levothyroxine 50 mcg Oral Daily meropenem 0.5 g Intravenous Q24H metroNIDAZOLE 500 mg Oral Q8H ALYSSA naloxone omeprazole 40 mg Oral Daily polyethylene glycol 17 g Oral BID sevelamer 800 mg Oral TID WC sodium chloride 250 mL Intravenous Once sodium chloride 250 mL Intravenous Once vancomycin 750 mg Intravenous See Admin Instructions vancomycin 750 mg Intravenous Once vitamin B abwcagj-C-onlhk acid 1 tablet Oral Daily DISCONTD: meropenem 0.5 g Intravenous Q12H Continuous Infusions PRN Medications acetaminophen, acetaminophen, albumin human, albuterol, HYDROcodone-acetaminophen, lidocain e buffered 1%, ondansetron, ondansetron, DISCONTD: aluminum-magnesium hydroxide-simethicone, DISCONTD: midazolam, DISCONTD: polyethylene glycol, DISCONTD: zolpidem OBJECTIVE Vital Signs: BP 126/72 | Pulse 86 | Temp(Src) 98.5 F (36.9 C) (Oral) | Resp 14 | Ht 1.702 m (5' 7") | Wt 68.5 kg (151 lb 0.2 oz) | BMI 23.65 kg/m2 | SpO2 99% Physical Exam: General Appearance: appears ill. No apparent distress. Less Anxious. not c/o Chest pain. co nversive and appropriate to place and person. HEENT: Normocephalic, atraumatic, pupils EOMI, PERRLA. Nose: no septal deviation or dischar ge. Ears: normal size, location, and contour. NECK: is supple, full ROM, nontender. LUNGS: clear to auscultation bilaterally with no wheezing, No rales or rhonchi audible. HEART: S1S2, Regular rate and rhythm without murmurs, gallops or rubs. ABDOMEN: Bowel sound is hypoactive, abdomen is soft, non-tender non-distended ,no mass. No rebound. EXTREMITIES: left arm fistula. No lower extermity edema, No clubbing or cyanosis bilaterall y NEURO: Cranial Nerves 2-12 intact, Gait not tested, Muscle strength good bilaterally, Sensa tion grossly intact. PSYCH: Alert, awake and Oriented x3. SKIN: No bruises, rashes, lesions, or ulcers. DATA Lab 10/10/123 10/10/12 0120 10/09/12 0530 WBC 8.5 7.6 8.3 RBC 3.06* 3.52* 2.91* HCT 25.6* 29.0* 24.8* MCV 83.7 82.2 85.0 MCH 26.9* 26.2* 27.4 MCHC 32.2 31.8* 32.3 RDW 51.6 52.1 53.4* PLT 368 423* 376 MPV 7.4 7.0 6.8 DIFFTYPE AUTOMATED AUTOMATED AUTOMATED Lab 10/10/123 10/10/12 0120 10/09/12 0530 K 4.0 3.9 4.0 CL 94* 95* 99 CO2 23 28 28 ANIONGAP 18 15 14 GLUF 127* 106* 94 BUN 35* 36* 27* CREATININE 5.23* 5.09* 4.26* BCR 7 7 6 CA 7.7* 7.8* 7.4* PROT 6.8 7.4 6.5 ALB 1.4* 1.6* 1.4* GLOB 5.4* 5.8* 5.1* AGRATIO -- -- -- BILITOT 0.3 0.4 0.4 ALP 111 116* 80 AST 25 25 16 ALT 9* 12 6* EGFR 13* 13* 16* BMP: Lab 10/10/12 0443 10/10/12 0120 10/09/12 0530 NA 132* 134* 136 K 4.0 3.9 4.0 CL 94* 95* 99 CO2 23 28 28 ANIONGAP 18 15 14 GLUF 127* 106* 94 BUN 35* 36* 27* CREATININE 5.23* 5.09* 4.26* BCR 7 7 6 CA 7.7* 7.8* 7.4* EGFR 13* 13* 16* Lab 10/10/12 0443 10/10/12 0120 10/09/12 0530 MG 2.0 1.9 1.9 No results found for this basename: APTT:3,INR:3,PTT:3 in the last 168 hours Lab 10/10/12 1331 10/10/12 0443 10/10/12 0120 CKTOTAL 103 119 71 TROPONINI <0.02 <0.02 <0.02 TROPONINT -- -- -- CKMBINDEX 1.1 1.2 1.1 Xr Abdomen 1 View 10/06/2012 CAROL POTTER XR ABDOMEN 1 VIEW 10/06/2012 11:43 AM HISTORY: 47 years. Male. Abd ominal pain. TECHNIQUE: XR ABDOMEN 1 VIEW. COMPARISON: CT abdomen pelvis 04/13/2012. FIND INGS: Bowel gas pattern is normal. No evidence of bowel obstruction or free air. The outli lesley of the abdominal organs and psoas muscles are normal. No suspicious pathologic calcific ations identified. No significant skeletal abnormality identified in abdomen or pelvis. IM PRESSION: 1. No acute findings in the abdomen. Xr Cervical Spine 3 View 10/04/2012 CAROL POTTER XR CERVICAL SPINE LIMITED 2-3 VIEW 10/03/2012 9:55 PM HISTORY: 47 ye ars. Male. Neck pain TECHNIQUE: 4 view(s) obtained. COMPARISON: None. FINDINGS: The c ervical vertebrae are visualized from C1 through C7. The vertebral bodies of the cervical sp ine demonstrate normal height and alignment. The disk spaces are normal in height although mild degenerative changes seen at C5-6 with anterior osteophyte formation. The odontoid is only seen on the lateral projection and appears grossly normal. The visualized portions of the mandible and calvarium are normal. No widening of the prevertebral soft tissue spac e is seen. The airway is patent. IMPRESSION: 1. Minimal degenerative changes seen at C5-6. No other findings X-ray Chest Ap Only 10/10/2012 IMPRESSION: 1. Left lower lobe consolidation and small left effusion. 2. Borderl ine cardiomegaly. RADIA Read by Douglas Ortiz MD on Oct 10 2012 3:03AM Xr Chest 1 View 10/08/2012 CAROL POTTER XR CHEST 1 VIEW 10/08/2012 12:20 PM History: 47 years. Male. Acut e shortness of breath. History of hypertension. Chronic renal failure. Technique: AP portab le upright technique was performed at 1225 hours. Findings: Increased density is visualize d at the left lung base, behind the left heart obscuring the left hemidiaphragm, suggesting segmental left lower lobe atelectasis/pneumonia. No visible left pleural effusion. Peribron chial interstitial density is mild in the perihilar areas, extending into the lower lobes, s uggesting mild interstitial pulmonary edema. The right pleural space is clear. Mild cardiom egaly is present. The pulmonary justin and mediastinal contours are normal. There is mild calc ification of the thoracic aorta, but no aortic dilatation or tortuosity. No central venous c atheter visualized. Conclusions: 1. Mild interstitial pulmonary edema and cardiomegaly sug gesting acute congestive heart failure. 2. Left lower lobe segmental atelectasis/pneumonia. 3. All findings are new as compared with 07/07/12. Echo Dany 10/09/2012 Patient Name: CAROL POTTER Date of : 1965 [facility] Physician: Beny Valencia MD INDICATIONS endocarditis CONCLUSIONS 1. The left ventricle i s moderately dilated. 2. Overall left ventricular systolic function is mild-moderately impai red with, an EF between 40 - 45 %. 3. No vegetation visualized. 4. Gbxu-qx-jumgqfgw mitral r egurgitation is present. 5. There is a trivial pericardial effusion present. FINDINGS ----- --- Procedure: The patient was brought to the catheterization laboratory holding area in the fasting state. Informed consent was obtained after benefits and risks of the procedure wer e discussed with the patient including but not limited to the potential for esophageal punct ure and . The oropharynx was anesthetized with 1% Hurricane spray. After conscious se dation, the transesophageal probe was advanced and placed in the esophagus and multiple proj ections of the cardiovascular structures were acquired and recorded. This was followed by advancement of the probe into the stomach for transgastric imaging. Finally, interrogation of the descending aorta and arch was performed. The probe was removed. The patient tolera gela the procedure well. There were no immediate complications. 2 D, pulsed and continuou s wave form and color images were interpreted in real time. Medications: 3 mg of Versed and Study quality: This was a technically good study. Left Ventricle: The left ventricle is mode rately dilated. Left Ventricle: Left Ventricle: Overall left ventricular systolic function is mild-moderately impaired with, an EF between 40 - 45 %. Left Atrium: The left atrium is normal in size and function. Left Atrium: Normal left atrial appendage without evidence for thrombi. Right Ventricle: The right ventricle is normal in size and function. Right Atrium : The right atrium is normal in size and function. Interatrial Septum: No evidence for intra -atrial shunt by bubble study. Interatrial Septum: No shunt seen with color Doppler. Inter atrial Septum: No shunt seen with bubble study. Aortic Valve: The aortic valve is trileaflet , and appears structurally normal. No aortic stenosis or regurgitation. Aortic Valve: There is mild aortic valve sclerosis without stenosis. Aortic Valve: There is no evidence of aor tic stenosis. Aortic Valve: No vegetation visualized. Mitral Valve: [id number] mitral regurgitation is present. Tricuspid Valve: The tricuspid valve appears structurally normal. Trace/Mild (physiologic) regurgitation. Aorta: Ascending aorta, aortic arch and descending thoracic aorta are of normal caliber with no significant atherosclerotic disease. Mass: No m ass visualized. Thrombus: No clot visualized. Pericardium: There is a trivial pericardial ef fusion present. MEASUREMENTS Destination Specialist: RADHA Authenticated by: Beny Rousseau Report Date/Time: 10-09-2012 18:41:13 PROBLEM LIST ASSESSMENT & PLAN Principal Problem: *Adult failure to thrive Active Problems: Vitamin d deficiency Secondary hyperparathyroidism (of renal origin) Hypothyroidism Hypoalbuminemia Diabetes mellitus with ESRD (end-stage renal disease) Obesity (BMI 30-39.9) HTN (hypertension) ESRD (end stage renal disease) on dialysis Anemia of chronic kidney failure Gout Hyponatremia PUD (peptic ulcer disease) Weakness generalized C. difficile colitis Fever Bacteremia Staphylococcus aureus bacteremia with sepsis Malnutrition of moderate degree 10/07: pt as anxious today. Was having expiratory wheezes and complaining of chest pain. EKG done; no acute changes; prolonged QT noted. No desaturation. RT called and gave breathing R x. Discussed briefly with dr. Soria and he's concern of abdominal process. Xray of abdomen: no acute processes. On exam: benign. Pt claims "I can't feel" on abdominal palpation. Josie rn for underlying psych issue. Reassessed later in the day and pt sound asleep. Febrile: blo od cx x2 done. Anemia of CKD: stable. Cont to follow. Hyponatremia; improving. C.difficile c olitis; stable. No further diarrhea. Cont flagyl for 14 days course. ESRD; per nephro dr. Seth driscoll. Plan for discharge tomorrow 10/08. 10/08: pt with fever yesterday and I was informed of + bcx GPC x1/2 bottles today; will star t clindamycin IV for now and one dose of vancomycin IV. TIFFANIE/CKD; HD today. Discussed with dr Renato Soria briefly. Debility; cont PT/OT. CXR: increase in fluids/atelectasis. RT for treatmen t. Increase in respiratory therapy. 10/09: Bacteremia GPC x2; pt with h/o endocarditis; plan for DANY today. Spoke with dr. Garnica i. Cont vanco. Stop clindamycin. DDx: pneumonia, UTI, line infection. Anemia; stable. Debility; cont respiratory support with RT; PT continues; profoundly weak 2 nd to motivation, deconditioning, and pain. TIFFANIE/CKD; stable. No signs of fluid overload. Hyp erphosphatemia; resolved. Hyperkalemia; resolved. C. Difficile; no diarrhea until today p mi ralax yesterday. On flagyl. Hold miralax. 10/10: pt with persistent low grade fever. Blood cx + staph aureus x2 bottles. On vancomycin . Dr. Escobar consulted today. Stop meropenem today. Cont vanco. Pt had a transient episode of hypotension last pm. Now resolved. Pt is pending discharge to [facility]. Debility; will need e xtensive physical therapy. Moderate protein malnutrition;cont nutritional support. Disposition: inpatient Code Status: Full Code Khanh Rangel MD 10/10/2012 onversio n Transaction, Provider Unknown - 10/10/2012 3:32 PM PDTFormatting of this note might be di fferent from the original. Progress Notes by Tiana Fontana RD at 10/10/12 1532 Author: Tiana Fontana RD Service: (none) Author Type: Registered Dietitian Filed: 10/10/12 5108 Date of Service: 10/10/121531 Status: Signed Lithographic Printing Machinist: Tiana Fontana RD (Registered Dietitimagen) JAVI assessment of nutrition status: Moderate malnutrition related to chronic illness causing increased nutrient needs, as evide nced by: severe wt loss of 18.4% in the past 6 months, muscle wasting, and mild fluid accumu lation per RN. RD following pt. to encourage intake. Kitchen will send soft/cut up foods. Pt has been set up to receive Magic Cups TID and will also receive Glucerna bars with meals. Will dionisio nue to monitor. Tiana Barbosa RD onver quique Transaction, Provider Unknown - 10/10/2012 1:42 PM PDT Progress Notes by Makenna Calvo at 10/10/12 2622 Author: Makenna Calvo Service: (none) Author Type: Rock Picker Filed: 10/10/12 1349 Date of Service: 10/10/121341 Status: Signed Lithographic Printing Machinist: Makenna Calvo (Rock Picker) CM met with Ophelia Gordon the [facility] RN for marty [phone]... She stated t hat it would be best if CM could try to get pt into [facility] as pt will have to have his dialysis done in [facility] and if pt goes to [facility] it will be hard for arranging transportation... CM also spoke with pts spouse Shyanne [phone], Shyanne has a so n at home that has Cerebral Palsy and he goes to work/school on Saturday, Shyanne states that he r son and dil are there watching him now but that she will need to go home on Saturday and get her son lunches packed and clothing out for school on Saturday, then her other son and dil wi ll be able to care for him for another few days... CM gave pt a gas voucher for transport on Saturday as the [employer] does not run on Saturday, pt will take grapeBlue Perch on Saturday to return. .. CM advised Shyanne to let pt know this plan as pt gets depressed when left at hospital [facility] e... Will continue to follow... D/C plan is to attempt to get pt into [place] in [facility] again closer to D/C ( they w ere full prior attempt). So Overton - 10/10/2012 11:03 AM PDTFormatting of this note might be different from the origin al. Progress Notes by So Nunez PT at 10/10/12 1103 Author: So Nunez PT Service: (none) Author Type: Physical Therapist Filed: 10/10/121102 Date of Service: 10/10/121102 Status: Signed Lithographic Printing Machinist: So Nunez PT (Physical Therapist) 10/10/12 110 PT Last Visit PT Received On 10/10/12 PT Therapy Visit Not available Requires PT Follow Up Unavailable Other Comments Comments Pt having HD at this time. Will check back as PT schedules permit. onversion Transaction, Nik mundo Unknown - 10/10/2012 4:45 AM PDT Progress Notes by Carmina Lara RPH at 10/10/12444 Author: Carmina Lara RPH Service: (none) Author Type: Pharmacist Filed: 10/10/12444 Date of Service: 10/10/12444 Status: Signed Lithographic Printing Machinist: Carmina Lara RPH (Pharmacist) Clinical Pharmacy Note: Renal Monitoring Carol Potter 47 y.o. male Height: 170.2 cm Weight: 67.4 kg Patient is on hemodialysis - Usual schedule: Mon-Sat-Sat. Pharmacy dosing for renal function per Dr. Mercado. Will order the following dosage adjustments: Meropenem 500 mg IV Q24H - this is readily dialyzed so after next dialysis dose is to be r escheduled to be given after each HD. Pharmacy will continue to monitor for changes in medication orders and adjust accordingly. Carmina Lara PharmOnelia 10/10/2012 4:42 AM Bhargav Wilson MD - 10/10/2012 1:29 AM PDTFormatting of this note might be different from the o riginal. Significant Event by Bhargav Mercado MD at 10/10/12128 Author: Bhargav Mercado MD Service: Hospitalist Author Type: Physician Filed: 10/10/12 2211 Date of Service: 10/10/12128 Status: Signed Lithographic Printing Machinist: Bhargav Mercado MD (Physician) Rapid assessment team was called for hypotension and hypoxemia. The patient apparently had drop of systolic blood pressures to 70s with mild confusion. Evaluated patient at the bedside. At the time of my evaluation, the patient was alert, oriented x3, and he reported mild lightheadedness while lying down. He denied any headache, acute vision changes. No focal neurological symptoms. No slurring of speech. He denied left precordial chest pain, jaw pain, arm pain, interscapular pain. He denied any shortness of breath or pleuritic chest pain. Diarrhea has resolved. He has chronic pain in the lower extremities. EKG did not show any acute ischemia or infarction. Chest x-ray showed left lower lobe pneumonia. Vital signs even prior to fluid administration improved with partial Trendelenburg position to a systolic of 106 and it remained consistently at this range despite elevating the head end of the bed. He later received 250 mL normal saline bolus. Oxygenation improved spontaneously and they were able to wean him down to 3 L OxyMask, saturating 93% to 94%. The patient has bacteremia with Staphylococcus aureus, source possible pneumonia. DANY did not show any vegetations. He has chronic systolic dysfunction, ejection fraction of 40%. Pulmonary function tests were suggestive of COPD. PHYSICAL EXAMINATION GENERAL: The patient is alert, oriented x3. No use of accessory muscles of respiration. LUNGS: Decreased bilaterally but no rales or wheeze noted. HEART: Regular. ABDOMEN: Nontender. EXTREMITIES: Bilateral lower extremities: No signs of DVT. ASSESSMENT AND PLAN 1. Hypotension, transient, possible secondary to bacteremia and sepsis. Improved. Added meropenem to vancomycin renal dose. The a.m. hospitalist to consult infectious disease due to persistent bacteremia. 2. Hypoxemia resolving, secondary to pneumonia. Continue nebulizer treatments. Total amount of time spent: 30 minutes. onversion Transacti on, Provider Unknown - 10/09/2012 5:35 PM PDTFormatting of this note might be different fro m the original. Progress Notes by Marivel Ocampo at 10/09/12 1735 Author: Marivel Ocampo Service: (none) Author Type: Registered Nurse Filed: 10/09/12 1736 Date of Service: 10/09/121734 Status: Signed Lithographic Printing Machinist: Marivel Ocampo In pts room to assist with dany, pt sedated per dr valencia's orders, pt stable, report to RN. Vs q 15 min post, hob at 30 deg, side rail up x2, call abraham in hand, bed down and locked. a v Ellie Azveedo MD - 10/09/2012 5:08 PM PDTFormatting of this note might be different from th e original. Progress Notes by Khanh Rangel MD at 10/09/121707 Author: Khanh Rangel MD Service: (none) Author Type: Physician Filed: 10/09/121715 Date of Service: 10/09/121707 Status: Signed Lithographic Printing Machinist: Khanh Rangel MD (Physician) [facility] Service: Hospitalist Progress Note Hospital Day: LOS: 6 days Post-Op Day: * No surgery found * SUBJECTIVE Events Overnight: Cont to have fever and bcx +x2 bottles. Vitals stable otherwise. ROS: 12 point ROS reviewed and negative other than above. Scheduled Medications amlodipine 10 mg Oral Nightly carvedilol 3.125 mg Oral BID WC cholecalciferol 2,000 Units Oral Daily citalopram 20 mg Oral Nightly epoetin alena 10,000 Units Intravenous QMWF ergocalciferol 50,000 Units Oral Weekly fentaNYL flumazenil heparin (porcine) 1,000 Units Intravenous QMWF heparin (porcine) 5,000 Units Subcutaneous Q8H heparin (porcine) 500 Units Intravenous QMWF ipratropium-albuterol 3 mL Nebulization Q4H levothyroxine 50 mcg Oral Daily lidocaine metroNIDAZOLE 500 mg Oral Q8H ALYSSA midazolam naloxone omeprazole 40 mg Oral Daily polyethylene glycol 17 g Oral BID sevelamer 800 mg Oral TID WC sodium polystyrene 15 g Oral Once vancomycin 750 mg Intravenous See Admin Instructions vitamin B xupsotu-R-ybbhz acid 1 tablet Oral Daily DISCONTD: clindamycin 600 mg Intravenous Q8H Continuous Infusions PRN Medications acetaminophen, acetaminophen, albumin human, albuterol, aluminum-magnesium hydroxide-simeth icone, HYDROcodone-acetaminophen, lidocaine buffered 1%, ondansetron, ondansetron, polyethyl ry glycol, zolpidem, DISCONTD: HYDROmorphone OBJECTIVE Vital Signs: BP 119/60 | Pulse 83 | Temp(Src) 100.6 F (38.1 C) (Oral) | Resp 20 | Ht 1.702 m (5' 7") | Wt 67.4 kg (148 lb 9.4 oz) | BMI 23.27 kg/m2 | SpO2 96% Physical Exam: General Appearance: appears ill. No apparent distress. Less Anxious and eyes not wide open. not c/o Chest pain.Conversive and appropriate to place and person. HEENT: Normocephalic, atraumatic, pupils EOMI, PERRLA. Nose: no septal deviation or dischar ge. Ears: normal size, location, and contour. NECK: is supple, full ROM, nontender. LUNGS: clear to auscultation bilaterally with no wheezing, No rales or rhonchi audible. HEART: S1S2, Regular rate and rhythm without murmurs, gallops or rubs. ABDOMEN: Bowel sound is hypoactive, abdomen is soft, non-tender non-distended ,no mass. No rebound. EXTREMITIES: left arm fistula. No lower extermity edema, No clubbing or cyanosis bilaterall y NEURO: Cranial Nerves 2-12 intact, Gait not tested, Muscle strength good bilaterally, Sensa tion grossly intact. PSYCH: Alert, awake and Oriented x3. SKIN: No bruises, rashes, lesions, or ulcers. DATA Lab 10/09/1252910/08/12 0540 10/07/12 0400 WBC 8.3 14.2* 11.5* RBC 2.91* 3.11* 3.58* HCT 24.8* 26.0* 29.5* MCV 85.0 83.8 82.4 MCH 27.4 27.4 26.6* MCHC 32.3 32.7 32.2 RDW 53.4* 50.3 49.9 PLT 376 420* 430* MPV 6.8 6.8 7.1 DIFFTYPE AUTOMATED AUTOMATED AUTOMATED Lab 10/09/1252910/08/12 0540 10/07/12 0400 K 4.0 5.4* 4.4 CL 99 96* 96* CO2 28 25 27 ANIONGAP 14 17 14 GLUF 94 81 80 BUN 27* 38* 22 CREATININE 4.26* 5.70* 3.93* BCR 6 7 6 CA 7.4* 8.0* 7.9* PROT 6.5 7.2 7.8 ALB 1.4* 1.6* 1.7* GLOB 5.1* 5.6* 6.1* AGRATIO -- -- -- BILITOT 0.4 0.6 0.4 ALP 80 80 93 AST 16 12 14 ALT 6* <6* 7* EGFR 16* 11* 17* BMP: Lab 10/09/1230 10/08/12 0540 10/07/12 0400 NA 136 132* 133* K 4.0 5.4* 4.4 CL 99 96* 96* CO2 28 25 27 ANIONGAP 14 17 14 GLUF 94 81 80 BUN 27* 38* 22 CREATININE 4.26* 5.70* 3.93* BCR 6 7 6 CA 7.4* 8.0* 7.9* EGFR 16* 11* 17* Lab 10/09/12 0530 10/08/12 0540 10/07/12 0400 MG 1.9 2.0 1.9 No results found for this basename: APTT:3,INR:3,PTT:3 in the last 168 hours No results found for this basename: CKTOTAL:3,TROPONINI:3,TROPONINT:3,CKMBINDEX:[address] 168 hours Xr Abdomen 1 View 10/06/2012 CAROL POTTER XR ABDOMEN 1 VIEW 10/06/2012 11:43 AM HISTORY: 47 years. Male. Abd ominal pain. TECHNIQUE: XR ABDOMEN 1 VIEW. COMPARISON: CT abdomen pelvis 04/13/2012. FIND INGS: Bowel gas pattern is normal. No evidence of bowel obstruction or free air. The outli lesley of the abdominal organs and psoas muscles are normal. No suspicious pathologic calcific ations identified. No significant skeletal abnormality identified in abdomen or pelvis. IM PRESSION: 1. No acute findings in the abdomen. Xr Cervical Spine 3 View 10/04/2012 CAROL POTTER XR CERVICAL SPINE LIMITED 2-3 VIEW 10/03/2012 9:55 PM HISTORY: 47 ye ars. Male. Neck pain TECHNIQUE: 4 view(s) obtained. COMPARISON: None. FINDINGS: The c ervical vertebrae are visualized from C1 through C7. The vertebral bodies of the cervical sp ine demonstrate normal height and alignment. The disk spaces are normal in height although mild degenerative changes seen at C5-6 with anterior osteophyte formation. The odontoid is only seen on the lateral projection and appears grossly normal. The visualized portions of the mandible and calvarium are normal. No widening of the prevertebral soft tissue spac e is seen. The airway is patent. IMPRESSION: 1. Minimal degenerative changes seen at C5-6. No other findings Xr Chest 1 View 10/08/2012 CAROL TARIQ XR CHEST 1 VIEW 10/08/2012 12:20 PM History: 47 years. Male. Acut e shortness of breath. History of hypertension. Chronic renal failure. Technique: AP portab le upright technique was performed at 1225 hours. Findings: Increased density is visualize d at the left lung base, behind the left heart obscuring the left hemidiaphragm, suggesting segmental left lower lobe atelectasis/pneumonia. No visible left pleural effusion. Peribron chial interstitial density is mild in the perihilar areas, extending into the lower lobes, s uggesting mild interstitial pulmonary edema. The right pleural space is clear. Mild cardiom egaly is present. The pulmonary justin and mediastinal contours are normal. There is mild calc ification of the thoracic aorta, but no aortic dilatation or tortuosity. No central venous c atheter visualized. Conclusions: 1. Mild interstitial pulmonary edema and cardiomegaly sug gesting acute congestive heart failure. 2. Left lower lobe segmental atelectasis/pneumonia. 3. All findings are new as compared with 07/07/12. LEM LIST ASSESSMENT & PLAN Principal Problem: *Adult failure to thrive Active Problems: Vitamin d deficiency Secondary hyperparathyroidism (of renal origin) Hypothyroidism Hypoalbuminemia Diabetes mellitus with ESRD (end-stage renal disease) Obesity (BMI 30-39.9) HTN (hypertension) ESRD (end stage renal disease) on dialysis Anemia of chronic kidney failure Gout Hyponatremia PUD (peptic ulcer disease) Weakness generalized C. difficile colitis Fever Bacteremia Staphylococcus aureus bacteremia with sepsis 10/07: pt as anxious today. Was having expiratory wheezes and complaining of chest pain. EKG done; no acute changes; prolonged QT noted. No desaturation. RT called and gave breathing R x. Discussed briefly with dr. Soria and he's concern of abdominal process. Xray of abdomen: no acute processes. On exam: benign. Pt claims "I can't feel" on abdominal palpation. Josie rn for underlying psych issue. Reassessed later in the day and pt sound asleep. Febrile: blo od cx x2 done. Anemia of CKD: stable. Cont to follow. Hyponatremia; improving. C.difficile c olitis; stable. No further diarrhea. Cont flagyl for 14 days course. ESRD; per nephro dr. Seth driscoll. Plan for discharge tomorrow 10/08. 10/08: pt with fever yesterday and I was informed of + bcx GPC x1/2 bottles today; will star t clindamycin IV for now and one dose of vancomycin IV. TIFFANIE/CKD; HD today. Discussed with dr Renato Soria briefly. Debility; cont PT/OT. CXR: increase in fluids/atelectasis. RT for treatmen t. Increase in respiratory therapy. 10/09: Bacteremia GPC x2; pt with h/o endocarditis; plan for DANY today. Spoke with dr. Nahun landa Cont vanco. Stop clindamycin. DDx: pneumonia, UTI, line infection. Anemia; stable. Debility; cont respiratory support with RT; PT continues; profoundly weak 2 nd to motivation, deconditioning, and pain. TIFFANIE/CKD; stable. No signs of fluid overload. Hyp erphosphatemia; resolved. Hyperkalemia; resolved. C. Difficile; no diarrhea until today p mi ralax yesterday. On flagyl. Hold miralax. Disposition: inpatient Code Status: Full Code Khanh Rangel MD 10/09/2012 onversio n Transaction, Provider Unknown - 10/09/2012 2:51 PM PDTFormatting of this note might be di fferent from the original. Progress Notes by Ebenezer Johns PT at 10/09/12 1912 Author: Ebenezer Johns PT Service: (none) Author Type: Physical Therapist Filed: 10/09/12 1458 Date of Service: 10/09/12 145 Status: Signed Lithographic Printing Machinist: Ebenezer Johns PT (Physical Therapist) 10/09/12 1056 PT Last Visit PT Received On 10/09/12 Requires PT Follow Up Yes Other Comments Comments Pt is limited by pain, weakness, and poor motivation. PT talked to pt about his go als and gave maximal encouragement. Pt followed all commands and gave his best effort. Pt wa s able to stand twice for 45-60 sec and work on bed mob and sitting balance. PT also assiste d while RN cleaned pt by rolling [id number]. Cognition Overall Cognitive Status WFL Orientation Level Oriented Bed Mobility Rolling Moderate assist Supine to Sit Max assist (BLEs OOB & trunk to upright) Sit to Supine Max assist (BLEs into bed & trunk to lower) Scooting Maximal assist Transfers Sit to/from Stand Maximal assist (to arise AND lower);x 1 person;Vebal instruction (2nd person A recommended) Mobility Ambulation Assistance ALANNA Balance Balance Yes Static Sitting Balance Static Sitting-Balance Support Right upper extremity support;Left upper extremity support;F eet supported Static Sitting-Level of Assistance Doesn't attain midline;Maintains midline;Standby assist; Minimal assist Static Sitting-Comment/Duration 15 min Safety Devices Safety Devices in Place (Call light in hand) Restraints Initially in Place No Plan Treatment/Interventions Continue per Primary PT POC Progress No functional improvements Recommendation Recommendations SNF Equipment Recommended (Mechanical lift) Pain Screening Currently in Pain Yes OTHER Pain Assessment 0-10 Pain Score 8 Cosmo Lang MD - 10/09/2012 11:51 AM PDTFormatting of this note might be different from the or iginal. Progress Notes by Cosmo Soria MD at 10/09/12 1151 Author: Cosmo Soria MD Service: Nephrology Author Type: Physician Filed: 10/09/12 1155 Date of Service: 10/09/12 1151 Status: Signed Lithographic Printing Machinist: Cosmo Soria MD (Physician) PCP is [facility] LOS: 6 days Carol Potter is a 47 y.o. male who is being followed for ESRD management. He was admitted with C. Difficile colitis and failure to thrive. Hospital course 10/06/12 HD uncomplicated. 10/07/12 Febrile. 10/08/12 Blood culture positive. Given Vancomycin and Fortaz post HD 10/09/12 Continues to be febrile. Blood cultures positive for staph aureus. Concern with as piration pneumonitis. Interval history: Carol Potter says that he feels a little bit better today. He was seen with his , Lily 10/06/12. He was nauseous earlier and hasn't had a BM since yesterday. ROS: No fever, chills sweats. No vomiting. No rashes or pruritis. No oral pain. ROS: As in History of Present Illness. 7 area ROS was done and was otherwise negative. Examination: Constitutional: Alert awake and oriented. He is lying flat in bed without any discomfort. HEENT: no JVD, non icteric sclera. Cardiovascular: S1soft. S2 split not appreciated. No friction rub. No S3. No murmur. LUNGS:: Clear breath sounds bilaterally, no wheezes and no rales. Abdominal: Epigastric tenderness. BS present. There is no rebound tenderness and no guardi ng. Musculoskeletal: No gross deformity, EXT: B/L LE with chronic venous changes. Neurological: No gross focal motor neurologic deficits. Skin: Skin is warm and dry. Hemodialysis access: Left upper extremity brachiocephalic fistula Scheduled Medications amlodipine 10 mg Oral Nightly carvedilol 3.125 mg Oral BID WC cefTAZidime 1 g Intravenous Once cholecalciferol 2,000 Units Oral Daily citalopram 20 mg Oral Nightly epoetin alena 10,000 Units Intravenous QMWF ergocalciferol 50,000 Units Oral Weekly heparin (porcine) 1,000 Units Intravenous QMWF heparin (porcine) 5,000 Units Subcutaneous Q8H heparin (porcine) 500 Units Intravenous QMWF ipratropium-albuterol 3 mL Nebulization Q4H levothyroxine 50 mcg Oral Daily lidocaine metroNIDAZOLE 500 mg Oral Q8H ALYSSA omeprazole 40 mg Oral Daily polyethylene glycol 17 g Oral BID sevelamer 800 mg Oral TID WC sodium polystyrene 15 g Oral Once vancomycin 1,500 mg Intravenous Once vancomycin 750 mg Intravenous See Admin Instructions vitamin B elwiwku-N-fzeik acid 1 tablet Oral Daily DISCONTD: clindamycin 600 mg Intravenous Q8H Continuous Infusions PRN Medications acetaminophen, acetaminophen, albumin human, albuterol, aluminum-magnesium hydroxide-simeth icone, HYDROcodone-acetaminophen, lidocaine buffered 1%, ondansetron, ondansetron, polyethyl ry glycol, zolpidem, DISCONTD: HYDROmorphone Allergy: Allergies Allergen Reactions Lisinopril Other (See Comments) "makes me sweat and knocked me out" Penicillins Other (See Comments) Unknown 10/08/12: Patient tolerated Ceftriaxone during previous admissions. Lab Results Component Value Date BUN 27* 10/09/2012 CREATININE 4.26* 10/09/2012 EGFR 16* 10/09/2012 NA 136 10/09/2012 K 4.0 10/09/2012 CL 99 10/09/2012 CO2 28 10/09/2012 CA 7.4* 10/09/2012 PHOS 4.2 10/09/2012 MG 1.9 10/09/2012 ALB 1.4* 10/09/2012 HGB 8.0* 10/09/2012 Vital Signs: BP 137/69 | Pulse 83 | Temp(Src) 98.3 F (36.8 C) (Oral) | Resp 18 | Ht 1.702 m (5' 7") | Wt 67.4 kg (148 lb 9.4 oz) | BMI 23.27 kg/m2 | SpO2 93% I&O Detailed Table: I/O last 3 completed shifts: In: 3040 [P.O.:1640; Other:1400] Out: 2550 [Urine:150; Other:2400] Weight change: 2.5 kg (5 lb 8.2 oz) Hemodynamics Last 24hrs: Principal Problem: *Adult failure to thrive Active Problems: Vitamin d deficiency Secondary hyperparathyroidism (of renal origin) Hypoalbuminemia Diabetes mellitus with ESRD (end-stage renal disease) ESRD (end stage renal disease) on dialysis Hyponatremia C. difficile colitis Fever Bacteremia Staphylococcus aureus bacteremia with sepsis Hypothyroidism Obesity (BMI 30-39.9) HTN (hypertension) Anemia of chronic kidney failure Gout PUD (peptic ulcer disease) Weakness generalized Assessment and Recommendations: ESRD Mr. Potter is a 47 y.o. male patient with ESRD likely secondary to Diabetic nephropathy who is dialyzed Saturday and Saturday at [facility] via Left upper extremity br achio cephalic fistula (last HD was Saturday10/03/12). He is now admitted with C. Difficile colitis and failure to thrive. Hospitalization has been complicated by staph aureus bacteremia. I will continue maintenance HD. Records from [facility] Have been reviewed.I s poke to the dialysis nurse Sarah. I will continue the usual prescription. Access: Access looks OK without any evidence of infection. HTN: BP is reasonably controlled with current medications and dietary salt restriction. We will try to use UF to achieve DW and avoid or minimize use of antihypertensive medicatio ns. BP Readings from Last 3 Encounters: 10/09/12 137/69 09/11/12 157/82 09/02/12 136/60 Volume management: Volume status appears OK with no edema. I will perform UF to achieve normovolemia. Wt Readings from Last 3 Encounters: 10/09/12 67.4 kg (148 lb 9.4 oz) 09/11/12 73.8 kg (162 lb 11.2 oz) 09/02/12 79.833 kg (176 lb) Anemia of chronic renal disease Iron work up shows Adequate iron stores. I would monitor Hb to keep it around 10 (using ANAYA and Fe as needed). H&H: Lab Results Component Value Date HGB 8.0* 10/09/2012 HCT 24.8* 10/09/2012 FERRITIN: Lab Results Component Value Date FERRITIN 933* 09/10/2012 IRON: Lab Results Component Value Date IRON 40* 09/10/2012 TIBC: Lab Results Component Value Date IRON 40* 09/10/2012 TIBC 115* 09/10/2012 LABIRON 35 09/10/2012 Electrolyte management (including potassium and Na): History of gout Profound hypoalbuminemia with diabetic nephropathy and nephrotic syndrome Secondary hyperparathyroidism Uric acid level Has been borderline high in the past. There are no recent flares of gout. PTH is at at target levels I would monitor Ca/PO4 product and use active Vitamin D products judiciously. Potassium is OK although the risk of hyperkalemia remains, specially in the setting of volu me depletion/dehydration/acute illness/concurrent therapy with other medications/urinary tra ct obstruction. Continue phosphate binders for now. He would benefit from paper stripper evaluation. Lab Results Component Value Date URICACID 8.2 04/02/2012 Lab Results Component Value Date CA 7.4* 10/09/2012 CA 8.0* 10/08/2012 CA 7.9* 10/07/2012 CA 6.1* 04/02/2012 Lab Results Component Value Date PHOS 4.2 10/09/2012 PHOS 5.0* 10/08/2012 PHOS 3.1 10/07/2012 Lab Results Component Value Date MG 1.9 10/09/2012 MG 2.0 10/08/2012 MG 1.9 10/07/2012 Lab Results Component Value Date ALB 1.4* 10/09/2012 ALB 1.6* 10/08/2012 ALB 1.7* 10/07/2012 Anion Gap: Lab Results Component Value Date ANIONGAP 14 10/09/2012 Lab Results Component Value Date PTHINTACT 255* 04/02/2012 Medication management: Metronidazole does not need any adjustment for level of kidney function. Allopurinol dose has been reduced for the level of kidney function 100 mg once a day C diff colitis: He does not have any diarrhea but has fever now with abdominal tenderness. Defer to primary team. Continue flagyl. Staph aureus Bacteremia: Administer vancomycin positive blood culture. Adjust ABx after blood cultures come back. Consider an ID evaluation. Carol Potter should be on a 2 [...] hr period. Strict I/O should be done. Daily CMP should be done (including Mg, PO4). Last year was discussed with the primary care team, . Prognosis is quite guarded with ongoing bacteremia, weight loss, and C diff colitis. Dr. Solorzano will assume nephrology care as of 8 am . COSMO SORIA MD 10/09/2012 onversion Orestesactyovany n, Provider Unknown - 10/08/2012 12:25 PM PDT Progress Notes by Ruslan Amezquita PTA at 10/08/12 1225 Author: Ruslan Amezquita PTA Service: (none) Author Type: Metal Window Frame Maker Filed: 10/08/12 1225 Date of Service: 10/08/12 1225 Status: Signed Lithographic Printing Machinist: Ruslan Amezquita PTA (Metal Window Frame Maker) 10/08/12 1224 PT Last Visit PT Received On 10/08/12 PT Therapy Visit Not available Requires PT Follow Up Unavailable Other Comments Comments pt receiving HD onver quique Transaction, Provider Unknown - 10/08/2012 11:23 AM PDT Progress Notes by Yusra Vallejo RN at 10/08/12 1123 Author: Yusra Vallejo RN Service: (none) Author Type: Registered Nurse Filed: 10/08/12 1126 Date of Service: 10/08/121122 Status: Signed Lithographic Printing Machinist: Yusra Vallejo RN (Registered Nurse) Received call from lab, 2/2 positive blood cultures gram neg cocci in anaerobic bottles. Re sults given to Dr Rangel who is here on floor rounding. hela Brown RP - 10/08/2012 10:42 AM PDTFormatting of this note might be different from t barbie original. Progress Notes by Chela Varela RPH at 10/08/12 1042 Author: Chela Varela RPH Service: (none) Author Type: Pharmacist Filed: 10/08/12 104 Date of Service: 10/08/12 104 Status: Signed Lithographic Printing Machinist: Chela Varela RPH (Pharmacist) Clinical Pharmacy Note - Vancomycin Day #1 Carol Potter47 y.o. male Height: 170.2 cm Weight: 70.6 kg WBC: 14.2 INDICATION: bacteremia Will begin with loading dose Vanco 1500 mg; then 750 mg IV after each hemodialysis. Trough monitoring is not necessary at this time. Pharmacy will order levels (with goal 15 to 20 mcg/mL) if deemed necessary and will adjust dose accordingly. Pharmacist: Chela Varela 10/08/2012 10:40 AM Nik Lang MD - 10/08/2012 10:25 AM PDTFormatting of this note might be different from the origi nal. Progress Notes by Cosmo Soria MD at 10/08/12 1025 Author: Cosmo Soria MD Service: Nephrology Author Type: Physician Filed: 10/08/12 1031 Date of Service: 10/08/12 1025 Status: Signed Lithographic Printing Machinist: Cosmo Soria MD (Physician) PCP is [facility] LOS: 5 days Carol Potter is a 47 y.o. male who is being followed for ESRD management. He is admitted with C. Difficile colitis and failure to thrive. Hospital course 10/06/12 HD uncomplicated. 10/07/12 Febrile. 10/08/12 Blood culture positive. Given Vancomycin and Fortaz post HD Interval history: Carol Potter says that he feels a little bit better today. He was seen with his , Lily 10/06/12. He was nauseous earlier and hasn't had a BM since yesterday. ROS: No fever, chills sweats. No vomiting. No rashes or pruritis. No oral pain. ROS: As in History of Present Illness. 7 area ROS was done and was otherwise negative. Examination: Constitutional: Alert awake and oriented. He is seen on HD with HD RN, Jimmie. HEENT: no JVD, non icteric sclera. Cardiovascular: S1soft. S2 split not appreciated. No friction rub. No S3. No murmur. LUNGS:: Clear breath sounds bilaterally, no wheezes and no rales. Abdominal: Epigastric tenderness. BS present. There is no rebound tenderness and no guardi ng. Musculoskeletal: No gross deformity, EXT: B/L LE with chronic venous changes. Neurological: No gross focal motor neurologic deficits. Skin: Skin is warm and dry. Hemodialysis access: Left upper extremity brachiocephalic fistula Scheduled Medications amlodipine 10 mg Oral Nightly carvedilol 3.125 mg Oral BID WC cefTAZidime 1 g Intravenous Once Cholecalciferol 1 tablet Oral Daily citalopram 20 mg Oral Nightly clindamycin 600 mg Intravenous Q8H epoetin alena 10,000 Units Intravenous QMWF ergocalciferol 50,000 Units Oral Weekly heparin (porcine) 1,000 Units Intravenous QMWF heparin (porcine) 5,000 Units Subcutaneous Q8H heparin (porcine) 500 Units Intravenous QMWF levothyroxine 50 mcg Oral Daily lidocaine metroNIDAZOLE 500 mg Oral Q8H ALYSSA omeprazole 40 mg Oral Daily sevelamer 800 mg Oral TID WC vancomycin 17 mg/kg Intravenous Once vancomycin 750 mg Intravenous Once vitamin B xbkbejn-D-vvtum acid 1 tablet Oral Daily DISCONTD: allopurinol 100 mg Oral Daily DISCONTD: piperacillin-tazobactam 2.25 g Intravenous Q8H Continuous Infusions PRN Medications acetaminophen, acetaminophen, albumin human, albuterol, aluminum-magnesium hydroxide-simeth icone, HYDROcodone-acetaminophen, HYDROmorphone, lidocaine buffered 1%, ondansetron, ondanse herber, polyethylene glycol, zolpidem, DISCONTD: hydrALAZINE, DISCONTD: HYDROmorphone, DISCONT D: LORazepam Allergy: Allergies Allergen Reactions Lisinopril Other (See Comments) "makes me sweat and knocked me out" Penicillins Other (See Comments) unknown Lab Results Component Value Date BUN 38* 10/08/2012 CREATININE 5.70* 10/08/2012 EGFR 11* 10/08/2012 NA 132* 10/08/2012 K 5.4* 10/08/2012 CL 96* 10/08/2012 CO2 25 10/08/2012 CA 8.0* 10/08/2012 PHOS 5.0* 10/08/2012 MG 2.0 10/08/2012 ALB 1.6* 10/08/2012 HGB 8.5* 10/08/2012 Vital Signs: BP 134/70 | Pulse 94 | Temp(Src) 99.9 F (37.7 C) (Oral) | Resp 18 | Ht 1.702 m (5' 7") | Wt 70.6 kg (155 lb 10.3 oz) | BMI 24.38 kg/m2 | SpO2 93% I&O Detailed Table: I/O last 3 completed shifts: In: 3030 [P.O.:3030] Out: 1150 [Urine:1150] Weight change: -0.9 kg (-1 lb 15.8 oz) Hemodynamics Last 24hrs: Principal Problem: *Adult failure to thrive Active Problems: Vitamin d deficiency Secondary hyperparathyroidism (of renal origin) Hypoalbuminemia Diabetes mellitus with ESRD (end-stage renal disease) ESRD (end stage renal disease) on dialysis Hyponatremia C. difficile colitis Fever Bacteremia Hypothyroidism Obesity (BMI 30-39.9) HTN (hypertension) Anemia of chronic kidney failure Gout PUD (peptic ulcer disease) Weakness generalized Assessment and Recommendations: ESRD Mr. Potter is a 47 y.o. male patient with ESRD likely secondary to Diabetic nephropathy who is dialyzed Saturday and Saturday at [facility] via Left upper extremity br achio cephalic fistula (last HD was Saturday10/03/12). He is now admitted with C. Difficile colitis and failure to thrive. I will continue maintenance HD. Records from [facility] Have been reviewed.I s poke to the dialysis nurse Sarah. I will continue the usual prescription. Access: Access looks OK without any evidence of infection. HTN: BP is reasonably controlled with current medications and dietary salt restriction. We will try to use UF to achieve DW and avoid or minimize use of antihypertensive medicatio ns. BP Readings from Last 3 Encounters: 10/08/12 134/70 09/11/12 157/82 09/02/12 136/60 Volume management: Volume status appears OK with no edema. I will perform UF to achieve normovolemia. Wt Readings from Last 3 Encounters: 10/08/12 70.6 kg (155 lb 10.3 oz) 09/11/12 73.8 kg (162 lb 11.2 oz) 09/02/12 79.833 kg (176 lb) Anemia of chronic renal disease Iron work up shows Adequate iron stores. I would monitor Hb to keep it around 10 (using ANAYA and Fe as needed). H&H: Lab Results Component Value Date HGB 8.5* 10/08/2012 HCT 26.0* 10/08/2012 FERRITIN: Lab Results Component Value Date FERRITIN 933* 09/10/2012 IRON: Lab Results Component Value Date IRON 40* 09/10/2012 TIBC: Lab Results Component Value Date IRON 40* 09/10/2012 TIBC 115* 09/10/2012 LABIRON 35 09/10/2012 Electrolyte management (including potassium and Na): History of gout Profound hypoalbuminemia with diabetic nephropathy and nephrotic syndrome Secondary hyperparathyroidism Uric acid level Has been borderline high in the past. There are no recent flares of gout. PTH is at at target levels I would monitor Ca/PO4 product and use active Vitamin D products judiciously. Potassium is OK although the risk of hyperkalemia remains, specially in the setting of volu me depletion/dehydration/acute illness/concurrent therapy with other medications/urinary tra ct obstruction. Continue phosphate binders for now. He would benefit from paper stripper evaluation. Lab Results Component Value Date URICACID 8.2 04/02/2012 Lab Results Component Value Date CA 8.0* 10/08/2012 CA 7.9* 10/07/2012 CA 7.8* 10/06/2012 CA 6.1* 04/02/2012 Lab Results Component Value Date PHOS 5.0* 10/08/2012 PHOS 3.1 10/07/2012 PHOS 4.4 10/06/2012 Lab Results Component Value Date MG 2.0 10/08/2012 MG 1.9 10/07/2012 MG 2.2 10/06/2012 Lab Results Component Value Date ALB 1.6* 10/08/2012 ALB 1.7* 10/07/2012 ALB 1.6* 10/06/2012 Anion Gap: Lab Results Component Value Date ANIONGAP 17 10/08/2012 Lab Results Component Value Date PTHINTACT 255* 04/02/2012 Medication management: Metronidazole does not need any adjustment for level of kidney function. Allopurinol dose has been reduced for the level of kidney function 100 mg once a day C diff colitis: He does not have any diarrhea but has fever now with abdominal tenderness. Defer to primary team. Continue flagyl. Bacteremia: Administer vancomycin and ceftazidime with positive blood culture. Adjust ABx after blood c ultures come back. Carol Potter should be on a 2 [...] hr period. Strict I/O should be done. Daily CMP should be done (including Mg, PO4). Last year was discussed with the primary care team, . Prognosis is quite guarded with ongoing bacteremia, weight loss, and C diff colitis. COSMO SORIA MD 10/08/2012 onversion Transactio n, Provider Unknown - 10/08/2012 10:00 AM PDT Progress Notes by Rowena Araya RN at 10/08/12 1000 Author: Rowena Araya RN Service: (none) Author Type: Registered Nurse Filed: 10/08/12 1143 Date of Service: 10/08/12 1000 Status: Addendum Lithographic Printing Machinist: Rowena Araya RN (Registered Nurse) Related Notes: Original Note by Rowena Aidee Marshal, RN (Registered Nurse) filed at 10/08/12 1140 Report given to HARDIK Tyler. Ellie Azevedo MD - 10/08/2012 9:07 AM PDTFormatting of this note might be different from th e original. Progress Notes by Khanh Rangel MD at 10/08/12 0907 Author: Khanh Rangel MD Service: (none) Author Type: Physician Filed: 10/08/12 7541 Date of Service: 10/08/12906 Status: Signed Lithographic Printing Machinist: Khanh Rangel MD (Physician) [facility] Service: Hospitalist Progress Note Hospital Day: LOS: 5 days Post-Op Day: * No surgery found * SUBJECTIVE Events Overnight: Eating dinner, denies any complaints. Is aware wanting to go to [facility]. ROS: 12 point ROS reviewed and negative other than above. Scheduled Medications amlodipine 10 mg Oral Nightly carvedilol 3.125 mg Oral BID WC Cholecalciferol 1 tablet Oral Daily citalopram 20 mg Oral Nightly clindamycin 600 mg Intravenous Q8H epoetin alena 10,000 Units Intravenous QMWF ergocalciferol 50,000 Units Oral Weekly heparin (porcine) 1,000 Units Intravenous QMWF heparin (porcine) 5,000 Units Subcutaneous Q8H heparin (porcine) 500 Units Intravenous QMWF levothyroxine 50 mcg Oral Daily lidocaine metroNIDAZOLE 500 mg Oral Q8H ALYSSA omeprazole 40 mg Oral Daily sevelamer 800 mg Oral TID vitamin B tlbhgeq-Y-eubuu acid 1 tablet Oral Daily DISCONTD: allopurinol 100 mg Oral Daily DISCONTD: piperacillin-tazobactam 2.25 g Intravenous Q8H Continuous Infusions PRN Medications acetaminophen, acetaminophen, albumin human, albuterol, aluminum-magnesium hydroxide-simeth icone, HYDROcodone-acetaminophen, HYDROmorphone, lidocaine buffered 1%, ondansetron, ondanse herber, polyethylene glycol, zolpidem, DISCONTD: hydrALAZINE, DISCONTD: HYDROmorphone, DISCONT D: LORazepam OBJECTIVE Vital Signs: BP 126/68 | Pulse 94 | Temp(Src) 99.9 F (37.7 C) (Oral) | Resp 18 | Ht 1.702 m (5' 7") | Wt 70.6 kg (155 lb 10.3 oz) | BMI 24.38 kg/m2 | SpO2 93% Physical Exam: General Appearance: appears ill. No apparent distress. Less Anxious and eyes not wide open. not c/o Chest pain.Conversive and appropriate to place and person. HEENT: Normocephalic, atraumatic, pupils EOMI, PERRLA. Nose: no septal deviation or dischar ge. Ears: normal size, location, and contour. NECK: is supple, full ROM, nontender. LUNGS: clear to auscultation bilaterally with no wheezing, No rales or rhonchi audible. HEART: S1S2, Regular rate and rhythm without murmurs, gallops or rubs. ABDOMEN: Bowel sound is hypoactive, abdomen is soft, non-tender non-distended ,no mass. No rebound. EXTREMITIES: left arm fistula. No lower extermity edema, No clubbing or cyanosis bilaterall y NEURO: Cranial Nerves 2-12 intact, Gait not tested, Muscle strength good bilaterally, Sensa tion grossly intact. PSYCH: Alert, awake and Oriented x3. SKIN: No bruises, rashes, lesions, or ulcers. DATA Lab 10/08/1253910/07/1239910/06/120 WBC 14.2* 11.5* 8.9 RBC 3.11* 3.58* 3.40* HCT 26.0* 29.5* 28.6* MCV 83.8 82.4 84.1 MCH 27.4 26.6* 27.1 MCHC 32.7 32.2 32.3 RDW 50.3 49.9 47.7 PLT 420* 430* 420* MPV 6.8 7.1 7.1 DIFFTYPE AUTOMATED AUTOMATED AUTOMATED Lab 10/08/1240 10/07/120 10/06/12 0410 K 5.4* 4.4 4.6 CL 96* 96* 91* CO2 25 27 23 ANIONGAP 17 14 19 GLUF 81 80 77 BUN 38* 22 34* CREATININE 5.70* 3.93* 5.73* BCR 7 6 6 CA 8.0* 7.9* 7.8* PROT 7.2 7.8 7.3 ALB 1.6* 1.7* 1.6* GLOB 5.6* 6.1* 5.7* AGRATIO -- -- -- BILITOT 0.6 0.4 0.4 ALP 80 93 89 AST 12 14 14 ALT <6* 7* 9* EGFR 11* 17* 11* BMP: Lab 10/08/12 0540 10/07/12 0400 10/06/12 0410 NA 132* 133* 129* K 5.4* 4.4 4.6 CL 96* 96* 91* CO2 25 27 23 ANIONGAP 17 14 19 GLUF 81 80 77 BUN 38* 22 34* CREATININE 5.70* 3.93* 5.73* BCR 7 6 6 CA 8.0* 7.9* 7.8* EGFR 11* 17* 11* Lab 10/08/12 0540 10/07/12 0400 10/06/12 0410 MG 2.0 1.9 2.2 No results found for this basename: APTT:3,INR:3,PTT:3 in the last 168 hours No results found for this basename: CKTOTAL:3,TROPONINI:3,TROPONINT:3,CKMBINDEX:[address] 168 hours Xr Abdomen 1 View 10/06/2012 CAROL POTTER XR ABDOMEN 1 VIEW 10/06/2012 11:43 AM HISTORY: 47 years. Male. Abd ominal pain. TECHNIQUE: XR ABDOMEN 1 VIEW. COMPARISON: CT abdomen pelvis 04/13/2012. FIND INGS: Bowel gas pattern is normal. No evidence of bowel obstruction or free air. The outli lesley of the abdominal organs and psoas muscles are normal. No suspicious pathologic calcific ations identified. No significant skeletal abnormality identified in abdomen or pelvis. IM PRESSION: 1. No acute findings in the abdomen. Xr Cervical Spine 3 View 10/04/2012 CAROL POTTER XR CERVICAL SPINE LIMITED 2-3 VIEW 10/03/2012 9:55 PM HISTORY: 47 ye ars. Male. Neck pain TECHNIQUE: 4 view(s) obtained. COMPARISON: None. FINDINGS: The c ervical vertebrae are visualized from C1 through C7. The vertebral bodies of the cervical sp ine demonstrate normal height and alignment. The disk spaces are normal in height although mild degenerative changes seen at C5-6 with anterior osteophyte formation. The odontoid is only seen on the lateral projection and appears grossly normal. The visualized portions of the mandible and calvarium are normal. No widening of the prevertebral soft tissue spac e is seen. The airway is patent. IMPRESSION: 1. Minimal degenerative changes seen at C5-6. No other findings LEM LIST ASSESSMENT & PLAN Principal Problem: *Adult failure to thrive Active Problems: Vitamin d deficiency Secondary hyperparathyroidism (of renal origin) Hypothyroidism Hypoalbuminemia Diabetes mellitus with ESRD (end-stage renal disease) Obesity (BMI 30-39.9) HTN (hypertension) ESRD (end stage renal disease) on dialysis Anemia of chronic kidney failure Gout Hyponatremia PUD (peptic ulcer disease) Weakness generalized C. difficile colitis Fever 10/07: pt as anxious today. Was having expiratory wheezes and complaining of chest pain. EKG done; no acute changes; prolonged QT noted. No desaturation. RT called and gave breathing R x. Discussed briefly with dr. Soria and he's concern of abdominal process. Xray of abdomen: no acute processes. On exam: benign. Pt claims "I can't feel" on abdominal palpation. Josie rn for underlying psych issue. Reassessed later in the day and pt sound asleep. Febrile: blo od cx x2 done. Anemia of CKD: stable. Cont to follow. Hyponatremia; improving. C.difficile c olitis; stable. No further diarrhea. Cont flagyl for 14 days course. ESRD; per nephro dr. Seth driscoll. Plan for discharge tomorrow 10/08. 10/08: pt with fever yesterday and I was informed of + bcx GPC x1/2 bottles today; will star t clindamycin IV for now and one dose of vancomycin IV. TIFFANIE/CKD; HD today. Discussed with onelia Soria briefly. Debility; cont PT/OT. CXR: increase in fluids/atelectasis. RT for treatme nt. Increase in respiratory therapy. Disposition: inpatient Code Status: Full Code Khanh Rangel MD 10/08/2012 Nik Lang MD - 10/07/2012 5:44 PM PDTFormatting of this note might be different from the origi nal. Progress Notes by Cosmo Soria MD at 10/07/121743 Author: Cosmo Soria MD Service: Nephrology Author Type: Physician Filed: 10/07/121746 Date of Service: 10/07/121743 Status: Signed Lithographic Printing Machinist: Cosmo Soria MD (Physician) PCP is [facility] LOS: 4 days Carol Potter is a 47 y.o. male who is being followed for ESRD management. He is admitted with C. Difficile colitis and failure to thrive. Hospital course 10/06/12 HD uncomplicated. 10/07/12 Febrile. Interval history: Carol Potter says that he feels OK today. He was seen with his , Lily 10/06/12. He is in discomfort from nausea and cramping abdominal pain. He is febrile. ROS: No fever, chills sweats. No vomiting. No rashes or pruritis. No oral pain. ROS: As in History of Present Illness. 7 area ROS was done and was otherwise negative. Examination: Constitutional: Alert awake and oriented. Febrile, nauseous, and in pain. HEENT: no JVD, non icteric sclera. Cardiovascular: S1soft. S2 split not appreciated. No friction rub. No S3. No murmur. LUNGS:: Clear breath sounds bilaterally, no wheezes and no rales. Abdominal: Epigastric tenderness. BS not appreciated.. There is no rebound tenderness and no guarding. Musculoskeletal: No gross deformity, EXT: B/L LE with chronic venous changes. Neurological: No gross focal motor neurologic deficits. Skin: Skin is warm and dry. Hemodialysis access: Left upper extremity brachiocephalic fistula Scheduled Medications allopurinol 100 mg Oral Daily amlodipine 10 mg Oral Nightly carvedilol 3.125 mg Oral BID WC Cholecalciferol 1 tablet Oral Daily citalopram 20 mg Oral Nightly epoetin alena 10,000 Units Intravenous QMWF ergocalciferol 50,000 Units Oral Weekly heparin (porcine) 1,000 Units Intravenous QMWF heparin (porcine) 5,000 Units Subcutaneous Q8H heparin (porcine) 500 Units Intravenous QMWF levothyroxine 50 mcg Oral Daily metroNIDAZOLE 500 mg Oral Q8H ALYSSA omeprazole 40 mg Oral Daily sevelamer 800 mg Oral TID vitamin B cxqevli-U-shvvq acid 1 tablet Oral Daily Continuous Infusions PRN Medications acetaminophen, acetaminophen, albumin human, albuterol, aluminum-magnesium hydroxide-simeth icone, hydrALAZINE, HYDROcodone-acetaminophen, HYDROmorphone, lidocaine buffered 1%, LORazep am, ondansetron, ondansetron, polyethylene glycol, zolpidem, DISCONTD: cyclobenzaprine, DISC ONTD: HYDROmorphone, DISCONTD: LORazepam, DISCONTD: LORazepam Allergy: Allergies Allergen Reactions Lisinopril Other (See Comments) "makes me sweat and knocked me out" Penicillins Other (See Comments) unknown Lab Results Component Value Date BUN 22 10/07/2012 CREATININE 3.93* 10/07/2012 EGFR 17* 10/07/2012 NA 133* 10/07/2012 K 4.4 10/07/2012 CL 96* 10/07/2012 CO2 27 10/07/2012 CA 7.9* 10/07/2012 PHOS 3.1 10/07/2012 MG 1.9 10/07/2012 ALB 1.7* 10/07/2012 HGB 9.5* 10/07/2012 Vital Signs: BP 121/65 | Pulse 96 | Temp(Src) 98.8 F (37.1 C) (Oral) | Resp 22 | Ht 1.702 m (5' 7") | Wt 68.1 kg (150 lb 2.1 oz) | BMI 23.51 kg/m2 | SpO2 95% I&O Detailed Table: I/O last 3 completed shifts: In: 2800 [P.O.:2000; Other:800] Out: 2500 [Urine:700; Other:1800] Weight change: 1.5 kg (3 lb 4.9 oz) Hemodynamics Last 24hrs: Principal Problem: *Adult failure to thrive Active Problems: Vitamin d deficiency Secondary hyperparathyroidism (of renal origin) Hypoalbuminemia Diabetes mellitus with ESRD (end-stage renal disease) ESRD (end stage renal disease) on dialysis Hyponatremia C. difficile colitis Fever Hypothyroidism Obesity (BMI 30-39.9) HTN (hypertension) Anemia of chronic kidney failure Gout PUD (peptic ulcer disease) Weakness generalized Assessment and Recommendations: ESRD Mr. Potter is a 47 y.o. male patient with ESRD likely secondary to Diabetic nephropathy who is dialyzed Saturday and Saturday at [facility] via Left upper extremity br achio cephalic fistula (last HD was Saturday10/03/12). He is not admitted with C. Difficile colitis and failure to thrive. I will continue maintenance HD. Records from [facility] Have been reviewed.I s poke to the dialysis nurse Sarah. I will continue the usual prescription. Access: Access looks OK without any evidence of infection. HTN: BP is reasonably controlled with current medications and dietary salt restriction. We will try to use UF to achieve DW and avoid or minimize use of antihypertensive medicatio ns. BP Readings from Last 3 Encounters: 10/07/12 121/65 09/11/12 157/82 09/02/12 136/60 Volume management: Volume status appears OK with no edema. I will perform UF to achieve normovolemia. He seems to be losing weight and I would need to check his dry weight. Wt Readings from Last 3 Encounters: 10/07/12 68.1 kg (150 lb 2.1 oz) 09/11/12 73.8 kg (162 lb 11.2 oz) 09/02/12 79.833 kg (176 lb) Anemia of chronic renal disease Iron work up shows Adequate iron stores. I would monitor Hb to keep it around 10 (using ANAYA and Fe as needed). H&H: Lab Results Component Value Date HGB 9.5* 10/07/2012 HCT 29.5* 10/07/2012 FERRITIN: Lab Results Component Value Date FERRITIN 933* 09/10/2012 IRON: Lab Results Component Value Date IRON 40* 09/10/2012 TIBC: Lab Results Component Value Date IRON 40* 09/10/2012 TIBC 115* 09/10/2012 LABIRON 35 09/10/2012 Electrolyte management (including potassium and Na): History of gout Profound hypoalbuminemia with diabetic nephropathy and nephrotic syndrome Secondary hyperparathyroidism Uric acid level Has been borderline high in the past. There are no recent flares of gout. Calcium, phosphorus Are quite low consistent with poor intake. PTHis at at target levels I would monitor Ca/PO4 product and use active Vitamin D products judiciously. Potassium is OK although the risk of hyperkalemia remains, specially in the setting of volu me depletion/dehydration/acute illness/concurrent therapy with other medications/urinary tra ct obstruction. Continue phosphate binders for now. He would benefit from paper stripper evaluation. Lab Results Component Value Date URICACID 8.2 04/02/2012 Lab Results Component Value Date CA 7.9* 10/07/2012 CA 7.8* 10/06/2012 CA 7.7* 10/05/2012 CA 6.1* 04/02/2012 Lab Results Component Value Date PHOS 3.1 10/07/2012 PHOS 4.4 10/06/2012 PHOS 3.8 10/05/2012 Lab Results Component Value Date MG 1.9 10/07/2012 MG 2.2 10/06/2012 MG 2.1 10/05/2012 Lab Results Component Value Date ALB 1.7* 10/07/2012 ALB 1.6* 10/06/2012 ALB 1.5* 10/05/2012 Anion Gap: Lab Results Component Value Date ANIONGAP 14 10/07/2012 Lab Results Component Value Date PTHINTACT 255* 04/02/2012 Medication management: Metronidazole does not need any adjustment for level of kidney function. Allopurinol does has been reduced for the level of kidney function 100 mg once a day C diff colitis: He does not have any diarrhea but has fever now with some tenderness. Defer to primary team. Continue flagyl. Carol Potter should be on a 2 [...] hr period. Strict I/O should be done. Daily CMP should be done (including Mg, PO4). Last year was discussed with the primary care team, . COSMO SORIA MD 10/07/2012 Khanh Azevedo M D - 10/07/2012 4:38 PM PDT Progress Notes by Khanh Rangel MD at 10/07/12 0400 Author: Khanh Rangel MD Service: (none) Author Type: Physician Filed: 10/07/121655 Date of Service: 10/07/121637 Status: Signed Lithographic Printing Machinist: Khanh Rangel MD (Physician) [facility] Service: Hospitalist Progress Note Hospital Day: LOS: 4 days Post-Op Day: * No surgery found * SUBJECTIVE Events Overnight: Called to pt's room for SOB and increased work of breathing (WOB). Vitals revealed and stable; tachycardia. No desaturation and normal BP. Pt remained responsive and conversive. EKG done; RT for duoneb STAT. ROS: 12 point ROS reviewed and negative other than above. Scheduled Medications allopurinol 100 mg Oral Daily amlodipine 10 mg Oral Nightly carvedilol 3.125 mg Oral BID WC Cholecalciferol 1 tablet Oral Daily citalopram 20 mg Oral Nightly epoetin alena 10,000 Units Intravenous QMWF ergocalciferol 50,000 Units Oral Weekly heparin (porcine) 1,000 Units Intravenous QMWF heparin (porcine) 5,000 Units Subcutaneous Q8H heparin (porcine) 500 Units Intravenous QMWF levothyroxine 50 mcg Oral Daily metroNIDAZOLE 500 mg Oral Q8H ALYSSA omeprazole 40 mg Oral Daily sevelamer 800 mg Oral TID WC vitamin B oppepjb-H-tptat acid 1 tablet Oral Daily Continuous Infusions PRN Medications acetaminophen, acetaminophen, albumin human, albuterol, aluminum-magnesium hydroxide-simeth icone, hydrALAZINE, HYDROcodone-acetaminophen, HYDROmorphone, HYDROmorphone, lidocaine buffe red 1%, LORazepam, ondansetron, ondansetron, polyethylene glycol, zolpidem, DISCONTD: cyclob enzaprine, DISCONTD: LORazepam, DISCONTD: LORazepam OBJECTIVE Vital Signs: BP 121/65 | Pulse 96 | Temp(Src) 98.8 F (37.1 C) (Oral) | Resp 22 | Ht 1.702 m (5' 7") | Wt 68.1 kg (150 lb 2.1 oz) | BMI 23.51 kg/m2 | SpO2 95% Physical Exam: General Appearance: appears ill. No apparent distress. Anxious and eyes wide open. Activel y c/o Chest pain.Conversive and appropriate to place and person. HEENT: Normocephalic, atraumatic, pupils EOMI, PERRLA. Nose: no septal deviation or dischar ge. Ears: normal size, location, and contour. NECK: is supple, full ROM, nontender. LUNGS: clear to auscultation bilaterally with no wheezing, No rales or rhonchi audible. HEART: S1S2, Regular rate and rhythm without murmurs, gallops or rubs. ABDOMEN: Bowel sound is hypoactive, abdomen is soft, non-tender non-distended ,no mass. No rebound. EXTREMITIES: left arm fistula. No lower extermity edema, No clubbing or cyanosis bilaterall y NEURO: Cranial Nerves 2-12 intact, Gait not tested, Muscle strength good bilaterally, Sensa tion grossly intact. PSYCH: Alert, awake and Oriented x3. SKIN: No bruises, rashes, lesions, or ulcers. DATA Lab 10/07/1239910/06/1240910/05/12399 WBC 11.5* 8.9 7.9 RBC 3.58* 3.40* 3.41* HCT 29.5* 28.6* 28.6* MCV 82.4 84.1 83.9 MCH 26.6* 27.1 27.3 MCHC 32.2 32.3 32.5 RDW 49.9 47.7 48.1 PLT 430* 420* 378 MPV 7.1 7.1 7.0 DIFFTYPE AUTOMATED AUTOMATED AUTOMATED Lab 10/07/1239910/06/1240910/05/12399 K 4.4 4.6 4.6 CL 96* 91* 91* CO2 27 23 27 ANIONGAP 14 19 15 GLUF 80 77 83 BUN 22 34* 22 CREATININE 3.93* 5.73* 4.22* BCR 6 6 5 CA 7.9* 7.8* 7.7* PROT 7.8 7.3 6.9 ALB 1.7* 1.6* 1.5* GLOB 6.1* 5.7* 5.4* AGRATIO -- -- -- BILITOT 0.4 0.4 0.5 ALP 93 89 91 AST 14 14 36 ALT 7* 9* 12 EGFR 17* 11* 16* BMP: Lab 10/07/1239910/06/120 10/05/12 0400 NA 133* 129* 129* K 4.4 4.6 4.6 CL 96* 91* 91* CO2 27 23 27 ANIONGAP 14 19 15 GLUF 80 77 83 BUN 22 34* 22 CREATININE 3.93* 5.73* 4.22* BCR 6 6 5 CA 7.9* 7.8* 7.7* EGFR 17* 11* 16* Lab 10/07/12 0400 10/06/12 0410 10/05/12 0400 MG 1.9 2.2 2.1 No results found for this basename: APTT:3,INR:3,PTT:3 in the last 168 hours No results found for this basename: CKTOTAL:3,TROPONINI:3,TROPONINT:3,CKMBINDEX:[address] 168 hours Xr Abdomen 1 View 10/06/2012 CAROL POTTER XR ABDOMEN 1 VIEW 10/06/2012 11:43 AM HISTORY: 47 years. Male. Abd ominal pain. TECHNIQUE: XR ABDOMEN 1 VIEW. COMPARISON: CT abdomen pelvis 04/13/2012. FIND INGS: Bowel gas pattern is normal. No evidence of bowel obstruction or free air. The outli lesley of the abdominal organs and psoas muscles are normal. No suspicious pathologic calcific ations identified. No significant skeletal abnormality identified in abdomen or pelvis. IM PRESSION: 1. No acute findings in the abdomen. Xr Cervical Spine 3 View 10/04/2012 CAROL POTTER XR CERVICAL SPINE LIMITED 2-3 VIEW 10/03/2012 9:55 PM HISTORY: 47 ye ars. Male. Neck pain TECHNIQUE: 4 view(s) obtained. COMPARISON: None. FINDINGS: The c ervical vertebrae are visualized from C1 through C7. The vertebral bodies of the cervical sp ine demonstrate normal height and alignment. The disk spaces are normal in height although mild degenerative changes seen at C5-6 with anterior osteophyte formation. The odontoid is only seen on the lateral projection and appears grossly normal. The visualized portions of the mandible and calvarium are normal. No widening of the prevertebral soft tissue spac e is seen. The airway is patent. IMPRESSION: 1. Minimal degenerative changes seen at C5-6. No other findings LEM LIST ASSESSMENT & PLAN Principal Problem: *Adult failure to thrive Active Problems: Vitamin d deficiency Secondary hyperparathyroidism (of renal origin) Hypothyroidism Hypoalbuminemia Diabetes mellitus with ESRD (end-stage renal disease) Obesity (BMI 23.5) HTN (hypertension) ESRD (end stage renal disease) on dialysis Anemia of chronic kidney failure Gout Hyponatremia PUD (peptic ulcer disease) Weakness generalized C. difficile colitis Fever 10/07: pt as anxious today. Was having expiratory wheezes and complaining of chest pain. EKG done; no acute changes; prolonged QT noted. No desaturation. RT called and gave breathing R x. Discussed briefly with dr. Soria and he's concern of abdominal process. Xray of abdomen: no acute processes. On exam: benign. Pt claims "I can't feel" on abdominal palpation. Conc sirisha for underlying psych issue. Reassessed later in the day and pt sound asleep. Febrile: bl ood cx x2 done. Anemia of CKD: stable. Cont to follow. Hyponatremia; improving. C.difficile colitis; stable. No further diarrhea. Cont flagyl for 14 days course. ESRD; per nephro dr. Jenifer webb. Plan for discharge tomorrow 10/08. Disposition: inpatient Code Status: Full Code Khanh Rangel MD 10/07/2012 onversio n Transaction, Provider Unknown - 10/07/2012 1:14 PM PDTFormatting of this note might be di fferent from the original. Progress Notes by Macho Abraham MS at 10/07/12 1314 Author: Macho Abraham MS Service: (none) Author Type: Rock Picker Filed: 10/07/12 4524 Date of Service: 10/07/124 Status: Signed Lithographic Printing Machinist: Macho Abraham MS (Rock Picker) CM spoke with Shyanne, pt's spouse and she is planning on coming to [facility] this afternoon and she reports she can transport pt to [facility] in [place] when discharge. She plans to stay the night if not discharged. onver quique Transaction, Provider Unknown - 10/07/2012 10:51 AM PDT Progress Notes by Ruslan Amezquita PTA at 10/07/12 1051 Author: Ruslan Amezquita PTA Service: (none) Author Type: Metal Window Frame Maker Filed: 10/07/12 1051 Date of Service: 10/07/12 105 Status: Signed Lithographic Printing Machinist: Ruslan Amezquita PTA (Metal Window Frame Maker) 10/07/12 1048 PT Last Visit PT Received On 10/07/12 Requires PT Follow Up Yes Other Comments Comments pt willing to participate w/ therex but declining OOB mobility due to pain and fat igue Cognition Overall Cognitive Status WFL Orientation Level Oriented Supine Supine-Exercise Type Ankle pumps;Quad sets;Glut sets;ABD/ADD;Heel slides Activity Tolerance Activity Tolerance Patient limited by fatigue;Patient limited by pain Plan Treatment/Interventions Continue per Primary PT POC Progress Progressing toward goals Recommendation Recommendations SNF onver quique Transaction, Provider Unknown - 10/07/2012 9:58 AM PDT Progress Notes by Macho Abraham MS at 10/07/12 0958 Author: Macho Abraham MS Service: (none) Author Type: Rock Picker Filed: 10/07/12 1000 Date of Service: 10/07/1258 Status: Signed Lithographic Printing Machinist: Macho Abraham MS (Rock Picker) Discharge planning update: CM met with pt today, he is agreeable with a discharge to [facility] in [place]. CM to fax orders to [facility] when they become available. Dorene Han MD - 10/06/2012 6:58 PM PDTFormatting of this note might be different from the orig inal. Progress Notes by Dorene Jeffrey MD at 10/06/121857 Author: Dorene Jeffrey MD Service: (none) Author Type: Physician Filed: 10/06/121932 Date of Service: 10/06/121857 Status: Signed Lithographic Printing Machinist: Dorene Jeffrey MD (Physician) [facility] Service: Hospitalist Progress Note Hospital Day: LOS: 3 days Post-Op Day: * No surgery found * SUBJECTIVE Patient Summary: Patient admitted for failure to thrive. He reports having diarrhea for the last three days, and he has been recently treated for MSSA bacteremia and arthiritis . Patient had received dialysis, and due to weakness, was brought to ER. He has tested pos itive for clostridium difficile, and has been started on metronidazole. He was having nause a and vomiting, and x-ray abdomen is negative for obstruction. He has since not had any fur ther episodes of vomiting. PT has evaluated the patient, and he will need SNF placement. Amado sierra has been accepted to [facility] when ready for discharge. Dr. Soria is following for taylor madrid's ESRD. Events Overnight: Patient reports feeling well, and ate full meal today. He has been passing stool. No episodes of emesis. Scheduled Medications allopurinol 100 mg Oral Daily amlodipine 10 mg Oral Nightly carvedilol 3.125 mg Oral BID WC Cholecalciferol 1 tablet Oral Daily citalopram 20 mg Oral Nightly epoetin alena 10,000 Units Intravenous QMWF ergocalciferol 50,000 Units Oral Weekly heparin (porcine) 1,000 Units Intravenous QMWF heparin (porcine) 5,000 Units Subcutaneous Q8H heparin (porcine) 500 Units Intravenous QMWF levothyroxine 50 mcg Oral Daily metroNIDAZOLE 500 mg Oral Q8H ALYSSA omeprazole 40 mg Oral Daily sevelamer 800 mg Oral TID vitamin B wnourwb-B-lsyaq acid 1 tablet Oral Daily DISCONTD: allopurinol 300 mg Oral Daily Continuous Infusions PRN Medications acetaminophen, acetaminophen, albumin human, albuterol, aluminum-magnesium hydroxide-simeth icone, cyclobenzaprine, hydrALAZINE, HYDROcodone-acetaminophen, HYDROmorphone, HYDROmorphone , lidocaine buffered 1%, LORazepam, LORazepam, ondansetron, ondansetron, polyethylene glycol , zolpidem OBJECTIVE Vital Signs: BP 138/72 | Pulse 92 | Temp(Src) 98.9 F (37.2 C) (Oral) | Resp 20 | Ht 1.702 m (5' 7") | Wt 68.1 kg (150 lb 2.1 oz) | BMI 23.51 kg/m2 | SpO2 100% Temp: [98.4 F (36.9 C)-99.4 F (37.4 C)] 98.9 F (37.2 C) (10/06 1499) BP: (108-138)/(59-72) 138/72 mmHg (10/06 1499) Heart Rate: [76-92] 92 (10/06 1499) Resp: [18-20] 20 (10/06 1499) SpO2: [95 %-100 %] 100 % (10/06 1499) Weight: [67.5 kg (148 lb 13 oz)-69 kg (152 lb 1.9 oz)] 68.1 kg (150 lb 2.1 oz) (10/06 1127 ) General appearance: alert, appears stated age and cooperative Lungs: clear to auscultation bilaterally Heart: regular rate and rhythm, S1, S2 normal, no murmur, click, rub or gallop Abdomen: soft, non-tender; bowel sounds normal; no masses, no organomegaly Extremities: venous stasis dermatitis noted DATA Lab 10/06/12 0410 10/05/12 0400 10/04/12 0521 WBC 8.9 7.9 7.9 HGB 9.2* 9.3* 9.8* HCT 28.6* 28.6* 30.9* PLT 420* 378 426* NEUTOPHILPCT 77.4* 74.7 72.5 MONOPCT 8.9 9.2 10.7 Lab 10/06/12 0410 10/05/12 0400 10/04/12 0521 NA 129* 129* 132* K 4.6 4.6 3.9 CL 91* 91* 92* CO2 23 27 31 BUN 34* 22 8 CREATININE 5.73* 4.22* 2.81* CALCIUM -- -- -- PROT 7.3 6.9 7.2 BILITOT 0.4 0.5 0.6 ALKPHOS -- -- -- ALT 9* 12 11 AST 14 36 24 GLUCOSE -- -- -- PROBLEM LIST Principal Problem: *Adult failure to thrive Active Problems: Vitamin d deficiency Secondary hyperparathyroidism (of renal origin) Hypothyroidism Hypoalbuminemia Diabetes mellitus with ESRD (end-stage renal disease) Obesity (BMI 30-39.9) HTN (hypertension) ESRD (end stage renal disease) on dialysis Anemia of chronic kidney failure Gout Hyponatremia PUD (peptic ulcer disease) Weakness generalized C. difficile colitis ASSESSMENT & PLAN 1) Clostridium difficile colitis - patient has been started on metronidazole will continue with 21 day course. Blood cultures negative. 2) Nausea and vomiting - secondary to colitis. X-ray abdomen negative for obstruction. Co ntinue with symptomatic management 3) Failure to thrive - patient to continue to work with PT, and have massage therapy. Qian ent can transfer to [facility] on acceptance. 4) Anemia of chronic disease - stable, continue to monitor 5) ESRD - Nephrology consulted for dialysis, will continue with MWF schedule. 6) Gout - patient to continue with allopurinol 7) Hypothyroidism - continue with levothyroxine. 8) History of Diabetes, diet controlled 9) GERD - on omeprazole 10) DVT prophylaxis with heparin Disposition: inpatient Code Status: Full Code DORENE JEFFREY MD 10/06/2012 onversio n Transaction, Provider Unknown - 10/06/2012 4:04 PM PDTFormatting of this note might be di fferent from the original. Progress Notes by Macho Abraham MS at 10/06/12 1604 Author: Macho Abraham MS Service: (none) Author Type: Rock Picker Filed: 10/07/12 4380 Date of Service: 10/06/12 1605 Status: Addendum Lithographic Printing Machinist: Macho Abraham MS (Rock Picker) Related Notes: Original Note by Macho Abraham MS (Rock Picker) filed at 10/06/12 5253 CM received call back from [facility] at [facility] and she states they do not have a private room for pt. CM faced inquiry to [facility] to inquire about a private room. Awaiting determina tion. Discharge planning update: [facility] in [place] per Zaki has accepted pt. They can admit p t Saturday or when needed. Cosmo Lang MD - 10/06/2012 2:00 PM PDTFormatting of this note might be different from the or iginal. Progress Notes by Cosmo Soria MD at 10/06/12 1400 Author: Cosmo Soria MD Service: Nephrology Author Type: Physician Filed: 10/06/12 6047 Date of Service: 10/06/12 1400 Status: Signed Lithographic Printing Machinist: Cosmo Soria MD (Physician) PCP is [facility] LOS: 3 days Carol Potter is a 47 y.o. male who is being followed for ESRD management. He is admitted with C. Difficile colitis and failure to thrive. Interval history: Carol Potter says that he feels OK today. He is seen with his , Lily, today 10/06/12. He continues to have diarrhea and was nauseous last night. There is no fever. ROS: No fever, chills sweats. No vomiting. No rashes or pruritis. No oral pain. ROS: As in History of Present Illness. 7 area ROS was done and was otherwise negative. Examination: Constitutional: Alert awake and oriented. He is seen on hemodialysis today with dialysis Fredrick valderrama. HEENT: no JVD, non icteric sclera. Cardiovascular: [...] dry. Hemodialysis access: Left upper extremity brachiocephalic fistula Scheduled Medications allopurinol 100 mg Oral Daily amlodipine 10 mg Oral Nightly carvedilol 3.125 mg Oral BID Cholecalciferol 1 tablet Oral Daily citalopram 20 mg Oral Nightly epoetin alena 10,000 Units Intravenous QMWF ergocalciferol 50,000 Units Oral Weekly heparin (porcine) 1,000 Units Intravenous QMWF heparin (porcine) 5,000 Units Subcutaneous Q8H heparin (porcine) 500 Units Intravenous QMWF levothyroxine 50 mcg Oral Daily metroNIDAZOLE 500 mg Oral Q8H [facility] omeprazole 40 mg Oral Daily sevelamer 800 mg Oral TID vitamin B oyxabep-R-engsu acid 1 tablet Oral Daily DISCONTD: allopurinol 300 mg Oral Daily Continuous Infusions PRN Medications acetaminophen, acetaminophen, albumin human, albuterol, aluminum-magnesium hydroxide-simeth icone, cyclobenzaprine, hydrALAZINE, HYDROcodone-acetaminophen, HYDROmorphone, HYDROmorphone , lidocaine buffered 1%, LORazepam, LORazepam, ondansetron, ondansetron, polyethylene glycol , zolpidem Allergy: Allergies Allergen Reactions Lisinopril Other (See Comments) "makes me sweat and knocked me out" Penicillins Other (See Comments) unknown Lab Results Component Value Date BUN 34* 10/06/2012 CREATININE 5.73* 10/06/2012 EGFR 11* 10/06/2012 NA 129* 10/06/2012 K 4.6 10/06/2012 CL 91* 10/06/2012 CO2 23 10/06/2012 CA 7.8* 10/06/2012 PHOS 4.4 10/06/2012 MG 2.2 10/06/2012 ALB 1.6* 10/06/2012 HGB 9.2* 10/06/2012 Vital Signs: BP 114/62 | Pulse 78 | Temp(Src) 98.8 F (37.1 C) (Oral) | Resp 18 | Ht 1.702 m (5' 7") | Wt 68.1 kg (150 lb 2.1 oz) | BMI 23.51 kg/m2 | SpO2 100% I&O Detailed Table: I/O last 3 completed shifts: In: 1063 [P.O.:1063] Out: 600 [Urine:600] Weight change: 0 kg (0 lb) Hemodynamics Last 24hrs: Principal Problem: *Adult failure to thrive Active Problems: Vitamin d deficiency Secondary hyperparathyroidism (of renal origin) Hypoalbuminemia Diabetes mellitus with ESRD (end-stage renal disease) ESRD (end stage renal disease) on dialysis Hyponatremia C. difficile colitis Hypothyroidism Obesity (BMI 30-39.9) HTN (hypertension) Anemia of chronic kidney failure Gout PUD (peptic ulcer disease) Weakness generalized Assessment and Recommendations: ESRD Mr. Potter is a 47 y.o. male patient with ESRD likely secondary to Diabetic nephropathy who is dialyzed Saturday and Saturday at [facility] via Left upper extremity br achio cephalic fistula (last HD was Saturday10/03/12). He is not great with C. Difficile colitis and failure to thrive. I will continue maintenance HD. Records from [facility] Have been reviewed.I s poke to the dialysis nurse Sarah. I will continue the usual prescription. Access: Access looks OK without any evidence of infection. HTN: BP is reasonably controlled with current medications and dietary salt restriction. We will try to use UF to achieve DW and avoid or minimize use of antihypertensive medicatio ns. BP Readings from Last 3 Encounters: 10/06/12 114/62 09/11/12 157/82 09/02/12 136/60 Volume management: Volume status appears OK with no edema. I will perform UF to achieve normovolemia. He seems to be losing weight and I would need to check his dry weight. Wt Readings from Last 3 Encounters: 10/06/12 68.1 kg (150 lb 2.1 oz) 09/11/12 73.8 kg (162 lb 11.2 oz) 09/02/12 79.833 kg (176 lb) Anemia of chronic renal disease Iron work up shows Adequate iron stores. I would monitor Hb to keep it around 10 (using ANAYA and Fe as needed). H&H: Lab Results Component Value Date HGB 9.2* 10/06/2012 HCT 28.6* 10/06/2012 FERRITIN: Lab Results Component Value Date FERRITIN 933* 09/10/2012 IRON: Lab Results Component Value Date IRON 40* 09/10/2012 TIBC: Lab Results Component Value Date IRON 40* 09/10/2012 TIBC 115* 09/10/2012 LABIRON 35 09/10/2012 Electrolyte management (including potassium and Na): History of gout Profound hypoalbuminemia with diabetic nephropathy and nephrotic syndrome Secondary hyperparathyroidism Uric acid level Has been borderline high in the past. There are no recent flares of gout. Calcium, phosphorus Are quite low consistent with poor intake. PTHis at at target levels I would monitor Ca/PO4 product and use active Vitamin D products judiciously. Potassium is OK although the risk of hyperkalemia remains, specially in the setting of volu me depletion/dehydration/acute illness/concurrent therapy with other medications/urinary tra ct obstruction. Continue phosphate binders for now. He would benefit from paper stripper evaluation. Lab Results Component Value Date URICACID 8.2 04/02/2012 Lab Results Component Value Date CA 7.8* 10/06/2012 CA 7.7* 10/05/2012 CA 8.1* 10/04/2012 CA 6.1* 04/02/2012 Lab Results Component Value Date PHOS 4.4 10/06/2012 PHOS 3.8 10/05/2012 PHOS 2.7 10/04/2012 Lab Results Component Value Date MG 2.2 10/06/2012 MG 2.1 10/05/2012 MG 2.1 10/04/2012 Lab Results Component Value Date ALB 1.6* 10/06/2012 ALB 1.5* 10/05/2012 ALB 1.6* 10/04/2012 Anion Gap: Lab Results Component Value Date ANIONGAP 19 10/06/2012 Lab Results Component Value Date PTHINTACT 255* 04/02/2012 Medication management: Metronidazole does not need any adjustment for level of kidney function. Allopurinol does has been reduced for the level of kidney function 100 mg once a day Carol Potter should be on a 2 [...] hr period. Strict I/O should be done. Daily CMP should be done (including Mg, PO4). Last year was discussed with the primary care team, Dr. Jeffrey. COSMO SORIA MD 10/06/2012 onversion Transactio n, Provider Unknown - 10/06/2012 12:41 PM PDT Progress Notes by Macho Abraham MS at 10/06/12 1240 Author: Macho Abraham MS Service: (none) Author Type: Rock Picker Filed: 10/06/12 4603 Date of Service: 10/06/12 1241 Status: Addendum Lithographic Printing Machinist: Macho Abraham MS (Rock Picker) Related Notes: Original Note by Macho Abarham MS (Rock Picker) filed at 10/06/12 2037 RADHA spoke with Santos at [facility] and facility is still making a determination. [facility] Facility is verifying pt's transportation to/from dialysis and if [facility] will offer transport assistance. RADHA also shared with Rhondi that pt [place] and could use Medicaid transportation services too. Transfer forms on chart as ne eded. onver quique Transaction, Provider Unknown - 10/06/2012 10:10 AM PDT Progress Notes by Ruslan Amezquita PTA at 10/06/12 1010 Author: Ruslan Amezquita PTA Service: (none) Author Type: Metal Window Frame Maker Filed: 10/06/12 1011 Date of Service: 10/06/12 1010 Status: Signed Lithographic Printing Machinist: Ruslan Amezquita PTA (Metal Window Frame Maker) 10/06/12 1010 PT Last Visit PT Received On 10/06/12 PT Therapy Visit Not available Requires PT Follow Up Unavailable Other Comments Comments receiving HD Dorene Han MD - 10/05/2012 7:10 PM PDTFormatting of this note might be different from the orig inal. Progress Notes by Dorene Jeffrey MD at 10/05/121909 Author: Dorene Jeffrey MD Service: (none) Author Type: Physician Filed: 10/05/121917 Date of Service: 10/05/121909 Status: Signed Lithographic Printing Machinist: Dorene Jeffrey MD (Physician) [facility] Service: Hospitalist Progress Note Hospital Day: LOS: 2 days Post-Op Day: * No surgery found * SUBJECTIVE Patient Summary: Patient admitted for failure to thrive. He reports having diarrhea for the last three days, and he has been recently treated for MSSA bacteremia and arthiritis . Events Overnight: patient reports still feeling weak, has been having nausea in the ev ening. Patient still having loose stools, and is passing gas. No episodes of vomiting. Scheduled Medications allopurinol 300 mg Oral Daily amlodipine 10 mg Oral Nightly carvedilol 3.125 mg Oral BID WC Cholecalciferol 1 tablet Oral Daily citalopram 20 mg Oral Nightly ergocalciferol 50,000 Units Oral Weekly heparin (porcine) 5,000 Units Subcutaneous Q8H levothyroxine 50 mcg Oral Daily metroNIDAZOLE 500 mg Oral Q8H ALYSSA omeprazole 40 mg Oral Daily sevelamer 800 mg Oral TID WC vitamin B cjsonfj-J-kvxdd acid 1 tablet Oral Daily Continuous Infusions PRN Medications acetaminophen, acetaminophen, albuterol, aluminum-magnesium hydroxide-simethicone, cycloben zaprine, hydrALAZINE, HYDROcodone-acetaminophen, HYDROmorphone, HYDROmorphone, LORazepam, LO Razepam, ondansetron, ondansetron, polyethylene glycol, zolpidem OBJECTIVE Vital Signs: BP 115/68 | Pulse 73 | Temp(Src) 98.3 F (36.8 C) (Oral) | Resp 20 | Ht 1.702 m (5' 7") | Wt 67.5 kg (148 lb 13 oz) | BMI 23.31 kg/m2 | SpO2 97% Temp: [97.9 F (36.6 C)-98.9 F (37.2 C)] 98.3 F (36.8 C) (10/05 1529) BP: (107-130)/(57-68) 115/68 mmHg (10/05 1529) Heart Rate: [72-78] 73 (10/05 1529) Resp: [16-20] 20 (10/05 1529) SpO2: [92 %-98 %] 97 % (10/05 1529) General appearance: alert, appears stated age and cooperative Lungs: clear to auscultation bilaterally Heart: regular rate and rhythm, S1, S2 normal, no murmur, click, rub or gallop Abdomen: soft, non-tender; bowel sounds normal; no masses, no organomegaly Extremities: venous stasis dermatitis noted DATA Lab 10/05/1239910/04/1252010/03/122116 WBC 7.9 7.9 7.9 HGB 9.3* 9.8* 10.2* HCT 28.6* 30.9* 32.1* PLT 378 426* 355 NEUTOPHILPCT 74.7 72.5 80.5* MONOPCT 9.2 10.7 7.7 Lab 10/05/1239910/04/1252010/03/122116 NA 129* 132* 136 K 4.6 3.9 3.6 CL 91* 92* 95* CO2 27 31 35* BUN 22 8 6* CREATININE 4.22* 2.81* 2.31* CALCIUM -- -- -- PROT 6.9 7.2 7.4 BILITOT 0.5 0.6 0.5 ALKPHOS -- -- -- ALT 12 11 12 AST 36 24 17 GLUCOSE -- -- -- PROBLEM LIST Principal Problem: *Adult failure to thrive Active Problems: Vitamin d deficiency Secondary hyperparathyroidism (of renal origin) Hypothyroidism Hypoalbuminemia Diabetes mellitus with ESRD (end-stage renal disease) Obesity (BMI 30-39.9) HTN (hypertension) ESRD (end stage renal disease) on dialysis Anemia of chronic kidney failure Gout Hyponatremia PUD (peptic ulcer disease) Weakness generalized C. difficile colitis ASSESSMENT & PLAN 1) Clostridium difficile colitis - patient has been started on metronidazole. Blood and ur ine cultures pending. 2) Nausea and vomiting - secondary to colitis, will order x-ray abdomen to rule out obstruc tion 3) Failure to thrive - patient to continue to work with PT, and have massage therapy. Qian ent will need SNF placement. 4) Anemia of chronic disease - stable, continue to monitor 5) ESRD - Nephrology consulted for dialysis, plan for dialysis in AM. 6) Gout - patient to continue with allopurinol 7) Hypothyroidism - continue with levothyroxine. 8) History of Diabetes, diet controlled 9) GERD - on omeprazole 10) DVT prophylaxis with heparin Disposition: inpatient Code Status: Full Code DORENE JEFFREY MD 10/05/2012 onversio n Transaction, Provider Unknown - 10/05/2012 2:21 PM PDTFormatting of this note might be di fferent from the original. Progress Notes by Ruslan Amezquita PTA at 10/05/12 142 Author: Ruslan Amezquita PTA Service: (none) Author Type: Metal Window Frame Maker Filed: 10/05/12 1421 Date of Service: 10/05/121420 Status: Signed Lithographic Printing Machinist: Ruslan Amezquita PTA (Metal Window Frame Maker) 10/05/12 1419 PT Last Visit PT Received On 10/05/12 Requires PT Follow Up Yes Cognition Overall Cognitive Status WFL Orientation Level Oriented Bed Mobility Supine to Sit Max assist (BLEs OOB & trunk to upright) Scooting Maximal assist Transfers Sit to/from Stand Maximal assist (to arise AND lower) Bed to/from Chair Maximal assist (to arise AND lower) Stand Pivot Transfers Maximal assist (to arise AND lower) Supine Supine-Exercise Type Ankle pumps;Quad sets;Glut sets;ABD/ADD;Heel slides Activity Tolerance Activity Tolerance Patient limited by fatigue Plan Treatment/Interventions Continue per Primary PT POC Progress Progressing toward goals Recommendation Recommendations Home with 24 hr supervision/assist;SNF onver quique Transaction, Provider Unknown - 10/05/2012 1:57 PM PDT Progress Notes by VANDANA Olivia at 10/05/12 1357 Author: VANDANA Olivia Service: (none) Author Type: Rock Picker Filed: 10/05/12 1400 Date of Service: 10/05/12 1357 Status: Signed Lithographic Printing Machinist: VANDANA Olivia (Rock Picker) CM met with Pt re dc plan. Pt lives at home with Spouse and 2 adult Son's. He is unable t o ambulate and uses a wheelchair. Family assists with all ADL's. Pt stated he wants to sta rt walking again and that he's been on a "waiting list" for [facility] since last Saturday for rehab. Referral faxed to [facility] by CM for discharge when Pt medically s table. He is C Diff positive and will require an isolation room. CM will await response. Dorene Han MD - 10/04/2012 4:41 PM PDTFormatting of this note might be different from the orig inal. Progress Notes by Dorene Jeffrey MD at 10/04/12 1641 Author: Dorene Jeffrey MD Service: Hospitalist Author Type: Physician Filed: 10/04/12 1800 Date of Service: 10/04/12 1641 Status: Signed Lithographic Printing Machinist: Dorene Jeffrey MD (Physician) [facility] Service: Hospitalist Progress Note Hospital Day: LOS: 1 day Post-Op Day: * No surgery found * SUBJECTIVE Patient Summary: Patient admitted for failure to thrive. He reports having diarrhea for the last three days, and he has been recently treated for MSSA bacteremia and arthiritis . Events Overnight: patient reports still feeling weak. Was working with physical [employer], but states that he was in too much pain. Denies fevers, chills, nausea or vomiting. Scheduled Medications allopurinol 300 mg Oral Daily amlodipine 10 mg Oral Nightly carvedilol 3.125 mg Oral BID WC Cholecalciferol 1 tablet Oral Daily citalopram 20 mg Oral Nightly ergocalciferol 50,000 Units Oral Weekly heparin (porcine) 5,000 Units Subcutaneous Q8H HYDROmorphone 1 mg Intravenous Once levothyroxine 50 mcg Oral Daily magnesium sulfate 1 g Intravenous Once metroNIDAZOLE 500 mg Oral Q8H ALYSSA omeprazole 40 mg Oral Daily sevelamer 800 mg Oral TID WC vitamin B bvzvast-I-buvht acid 1 tablet Oral Daily Continuous Infusions PRN Medications acetaminophen, acetaminophen, albuterol, aluminum-magnesium hydroxide-simethicone, cycloben zaprine, hydrALAZINE, HYDROcodone-acetaminophen, HYDROmorphone, HYDROmorphone, LORazepam, LO Razepam, ondansetron, ondansetron, polyethylene glycol, zolpidem OBJECTIVE Vital Signs: BP 112/62 | Pulse 71 | Temp(Src) 98.2 F (36.8 C) (Oral) | Resp 20 | Ht 1.702 m (5' 7") | Wt 67.5 kg (148 lb 13 oz) | BMI 23.31 kg/m2 | SpO2 97% Temp: [98.2 F (36.8 C)-98.5 F (36.9 C)] 98.2 F (36.8 C) (10/04 1545) BP: (109-147)/(60-80) 112/62 mmHg (10/04 1545) Heart Rate: [71-86] 71 (10/04 1545) Resp: [14-20] 20 (10/04 1545) SpO2: [96 %-100 %] 97 % (10/04 1545) Height: [170.2 cm (5' 7")-172.7 cm (5' 8")] 170.2 cm (5' 7") (10/04 954) Weight: [67.5 kg (148 lb 13 oz)] 67.5 kg (148 lb 13 oz) (10/04 954) BMI (Calculated): [23.4] 23.4 (10/04 954) General appearance: alert, appears stated age and cooperative Lungs: clear to auscultation bilaterally Heart: regular rate and rhythm, S1, S2 normal, no murmur, click, rub or gallop Abdomen: soft, non-tender; bowel sounds normal; no masses, no organomegaly Extremities: venous stasis dermatitis noted DATA Lab 10/04/1252010/03/122116 WBC 7.9 7.9 HGB 9.8* 10.2* HCT 30.9* 32.1* PLT 426* 355 NEUTOPHILPCT 72.5 80.5* MONOPCT 10.7 7.7 Lab 10/04/1252010/03/122116 NA 132* 136 K 3.9 3.6 CL 92* 95* CO2 31 35* BUN 8 6* CREATININE 2.81* 2.31* CALCIUM -- -- PROT 7.2 7.4 BILITOT 0.6 0.5 ALKPHOS -- -- ALT 11 12 AST 24 17 GLUCOSE -- -- PROBLEM LIST Principal Problem: *Adult failure to thrive Active Problems: Vitamin d deficiency Secondary hyperparathyroidism (of renal origin) Hypothyroidism HTN (hypertension) ESRD (end stage renal disease) on dialysis Anemia of chronic kidney failure Gout PUD (peptic ulcer disease) Weakness generalized ASSESSMENT & PLAN 1) Clostridium difficile colitis - patient has been started on metronidazole. Blood and ur ine cultures pending. 2) Failure to thrive - patient to continue to work with PT, and have massage therapy. 3) Anemia of chronic disease - stable, continue to monitor 4) ESRD - Nephrology consulted for dialysis 5) Gout - patient to continue with allopurinol 6) Hypothyroidism - continue with levothyroxine. 7) History of Diabetes, diet controlled 8) GERD - on omeprazole 9) DVT prophylaxis with heparin Disposition: inpatient Code Status: Full Code DORENE JEFFREY MD 10/04/2012 onversio n Transaction, Provider Unknown - 10/04/2012 2:28 PM PDTFormatting of this note might be di fferent from the original. Progress Notes by Kirti Álvarez RN at 10/04/121427 Author: Kirti Álvarez RN Service: Wound/Ostomy Care Author Type: Registered Nurse Filed: 10/04/12 1430 Date of Service: 10/04/121427 Status: Signed Lithographic Printing Machinist: Kirti Álvarez RN (Registered Nurse) Patient seen today by roof technician for evaluation due to open pressure ulcer LDA from a pr ior visit. Today's Olivier scale score is 14 indicating the patient is at risk for pressure u lcer development or injury. Patient was sitting up in bed eating when I arrived to room. Was able to reposition self with some discomfort (reported neck pain) to assist with exam. Two scars are noted to sacral- coccyx area from healed pressure ulcers. Patient is in attends wh ich were saturated. Attends changed by BARREL DRUM CUTTER and primary RN. Patient is on a static air overla y mattress and heels are elevated. Please consult wound care if further needs arise. Thank you, Kirti Álvarez RN CWCN 2:28 PM 10/04/2012 So Overton - 10/04/2012 2:10 PM PDTFormatting of this note might be different from the origin al. Progress Notes by So Nunez PT at 10/04/12 1410 Author: So Nunez PT Service: (none) Author Type: Physical Therapist Filed: 10/04/12 2333 Date of Service: 10/04/121409 Status: Signed Lithographic Printing Machinist: So Nunez PT (Physical Therapist) 10/04/12 1410 PT Last Visit PT Received On 10/04/12 Requires PT Follow Up Awaiting tx order Other Comments Comments MD orders received, chart reviewed. PT initial eval complete. Therapist physical assessment consisted of palpation of upper traps, levator scapulae, scalenes, SCM, rhomboid s, quadratus lumborum, hip adductors, quads, hamstrings. Pt with significant tenderness to touch in (B) upper trap, anterior cervical & levator scapula left greater than right which d oes stay consistent with his report of a whiplash type injury this past Saturday when his w /c feel backwards and he hit his head on concrete. SI joint special tests were negative. N o pain on palpation of iliopsoas (though it was significantly tight), no pain in (L) QL / hi p adductor arslan / gracilis nor quadriceps. Appears to have neural tension and significant hamstring tightness (B) when passive SLR with and without ankle DF was done. Pt reports ne w onset numbness in (L) anterior inner thigh from groin to knee. An MRI may be appropriate to r/o disc herniation in lumbar spine. He will benefit from massage therapy treatment whi alysa in the hospital as well as physical therapy to address functional mobility limitations an d family training. Pt with call light & tray table in reach at end of tx. Cognition Overall Cognitive Status WFL Orientation Level Oriented Bed Mobility Rolling Minimal assist Supine to Sit (Pt made an attempt though reports unable d/t LLE pain) Scooting Dependent Transfers Sit to/from Stand ALANNA (RN reports pt was 2 person maxA; Jun 2012 pt was mod-Indepen) Mobility Ambulation Assistance Not performed;Safety concerns Activity Tolerance Activity Tolerance Patient limited by pain Nurse Made Aware RN Jelly informed. Plan Treatment/Interventions Bed mobility training;Balance training;Family training;Gait trainin g;Monitor vital signs;Provide HEP;Review HEP;Review precautions;Set goals;Therapeutic exerci se;Transfer training;W/C training PT Frequency 5-7x/wk Care Duration (# of days) 7 # of days Recommendation Recommendations SNF;Home PT;Home OT;Continue acute care therapy Equipment Recommended (has necessary equipment) OTHER Pain Score 8 Pain Assessment 0-10 Pain Pain Location Thigh Pain Screening Currently in Pain Yes So Overton 10/05/19 2:10 PM PDT Progress Notes by So Nunez PT at 10/04/12 1410 Author: So Nunez PT Service: (none) Author Type: Physical Therapist Filed: 10/04/12 1512 Date of Service: 10/04/121409 Status: Signed Lithographic Printing Machinist: So Nunez PT (Physical Therapist) 10/04/12 1410 PT Last Visit PT Received On 10/04/12 Requires PT Follow Up Awaiting tx order Plan Treatment/Interventions Bed mobility training;Balance training;Family training;Gait trainin g;Monitor vital signs;Provide HEP;Review HEP;Review precautions;Set goals;Therapeutic exerci se;Transfer training;W/C training PT Frequency 5-7x/wk Care Duration (# of days) 7 # of days Home Environment Type of Home Home one story Home Exterior Layout 1-3 steps;Entry main;Rail on R ascending;Ramp Home Interior Layout Lives on main level with bedroom/bathroom Bathroom Shower/Tub Tub/shower unit Bathroom Toilet Lowered Bathroom Equipment Raised toilet seat;Commode / 3-in-1 (typiscally sponge bathes) Bathroom Accessibility Accessible via walker Home Equipment Wheelchair-manual;Walker front wheeled Additional Comments sleeps in a bed at night. was falling a lot with FWW so uses FWW. Roberto cinthya pushes him in w/c d/t (L) RCT limiting his ability to use w/c. Recommendation Recommendations SNF;Home PT;Home OT;Continue acute care therapy Equipment Recommended (has necessary equipment) Prior Function Level of [place] Assist with functional mobility;Assist with ADLs;Assist with IADLs;No n-ambulatory Lives With Spouse;Adult child(gary) (son & dtr-in-law, step-dtr.) Receives Help From Family Employment Retired for disability Activity Tolerance Endurance Fair Activity Tolerance Comments activity tolerance limited by pain Cognition Overall Cognitive Status WFL Orientation Level Oriented Assessment of Patient Status Assessment of Patient Status Decreased functional mobility;Pain;Decreased endurance Prognosis Should progress with skilled therapy intervention OTHER Pain Assessment 0-10 Pain Score 8 Pain Screening Pain Type Acute pain;Chronic pain Pain Radiating Towards (L) inner thigh from groin to knee Pain Frequency Continuous (worse with movement) Pain Onset (reports onset a week ago Saturday; hit by door) Clinical Progression Not changed Effect of Pain on Daily Activities unable to participate in ADL's & mobility Currently in Pain Yes Pain Pain Orientation Left;Inner Pain Location Thigh onversion Transaction, Nik flower Unknown - 10/04/2012 11:48 AM PDT Progress Notes by Trinidad Coon RPH at 10/04/12 1149 Author: Trinidad Coon RPH Service: (none) Author Type: Pharmacist Filed: 10/04/12 1148 Date of Service: 10/04/121147 Status: Signed Lithographic Printing Machinist: Trinidad Coon RPH (Pharmacist) Renal Dosing Monitoring: Carol Potter 47 y.o. male Pharmacy dosing for renal function per Dr. Jeffrey SCr = 2.81, est CrCl = 29.7 Plan per protocol: At present, all medications are appropriately dosed. Pharmacy will continue monitoring patient for appropriate dosing per renal function. 10/04/2012 11:41 AM Pharmacist: Trinidad Coon onver quique Transaction, Provider Unknown - 10/04/2012 9:20 AM PDT Progress Notes by Vickie Hernandez RN at 10/04/12919 Author: Vickie Hernandez RN Service: (none) Author Type: Registered Nurse Filed: 10/04/12929 Date of Service: 10/04/12919 Status: Signed Lithographic Printing Machinist: Vickie Hernandez RN (Registered Nurse) Report given to Chidi DYE on [facility] Pav. Pt to be inpatient and go [phone] ------KPEOTRN 10/04/12929. docume nted in this encounter Plan of Treatment Not on filedocumented as of this encounter Procedures + +--------+ + + + | Procedure Name | Priori | Date/Time | Associated Diagnosis | Comments | | | ty | | | | + +--------+ + + + | MRI HIP LEFT WO | Routin | 10/12/2012 | | Results for this | | CONTRAST | e | 10:52 AM | | procedure are in the | | | | PDT | | results section. | + +--------+ + + + | NM BONE SCAN 3 PHASE | Routin | 10/11/2012 | | Results for this | | | e | 4:45 PM | | procedure are in the | | | | PDT | | results section. | + +--------+ + + + | XR HIP LEFT 2-3 | Routin | 10/10/2012 | | Results for this | | VIEWS | e | 6:26 PM | | procedure are in the | | | | PDT | | results section. | + +--------+ + + + | CULTURE, BLOOD, 2ND | Timed | 10/10/2012 | | Results for this | | SPECIMEN (NON-ORD) | | 6:00 PM | | procedure are in the | | | | PDT | | results section. | + +--------+ + + + | CULTURE, BLOOD | Timed | 10/10/2012 | | Results for this | | | | 5:25 PM | | procedure are in the | | | | PDT | | results section. | + +--------+ + + + | XR CHEST 1 VIEW | Routin | 10/10/2012 | | Results for this | | | e | 1:26 AM | | procedure are in the | | | | PDT | | results section. | + +--------+ + + + | ECHO TRANSESOPHAGEAL | Routin | 10/09/2012 | | Results for this | | (DANY) | e | 5:41 PM | | procedure are in the | | | | PDT | | results section. | + +--------+ + + + | XR CHEST 1 VIEW | Routin | 10/08/2012 | | Results for this | | | e | 12:33 PM | | procedure are in the | | | | PDT | | results section. | + +--------+ + + + | CULTURE, BLOOD | Timed | 10/07/2012 | | Results for this | | | | 1:59 PM | | procedure are in the | | | | PDT | | results section. | + +--------+ + + + | CULTURE, BLOOD, 2ND | Timed | 10/07/2012 | | Results for this | | SPECIMEN (NON-ORD) | | 1:35 PM | | procedure are in the | | | | PDT | | results section. | + +--------+ + + + | XR ABDOMEN AP | Routin | 10/06/2012 | | Results for this | | | e | 12:00 PM | | procedure are in the | | | | PDT | | results section. | + +--------+ + + + | CULTURE, BLOOD, 2ND | Timed | 10/04/2012 | | Results for this | | SPECIMEN (NON-ORD) | | 5:59 PM | | procedure are in the | | | | PDT | | results section. | + +--------+ + + + | CULTURE, BLOOD | Timed | 10/04/2012 | | Results for this | | | | 5:55 PM | | procedure are in the | | | | PDT | | results section. | + +--------+ + + + | HISTORICAL | Timed | 10/04/2012 | | Results for this | | MICROBIOLOGY RESULT | | 3:15 AM | | procedure are in the | | | | PDT | | results section. | + +--------+ + + + | XR CERVICAL SPINE 2 | Routin | 10/03/2012 | | Results for this | | OR 3 VIEWS | e | 10:06 PM | | procedure are in the | | | | PDT | | results section. | + +--------+ + + + documented in this encounter Results MRI Hip Left wo Contrast (10/12/2012 10:52 AM PDT) + + | Specimen | + + | | + + + + + | Narrative | Performed At | + + + | [facility] MRI HIP LEFT WO CONTRAST 10/12/2012 10:22 AM HISTORY: | | | Left hip pain. Concern for infection. TECHNIQUE: Multiplanar | | | MR imaging was performed to the left hip without gadolinium. | | | FINDINGS: Compared with July 06, 2012. There are multifocal | | | areas of red marrow reconversion in the pelvis and proximal femurs. | | | There is no abnormal signal intensity identified that would be | | | suspicious for osteomyelitis. There is no evidence of avascular | | | necrosis of the femoral heads. There are small bilateral hip joint | | | effusions, symmetrical in size. There is mild fluid in the left | | | trochanteric bursa, consistent with bursitis. Consider needle | | | aspiration to exclude infected bursitis. There is bilateral | | | inguinal lymphadenopathy measuring up to 13 x 24 mm on the left. | | | This is mildly progressive from the prior study. There is a | | | small T2 hyperintense microlobulated lesion in the proximal left femur | | | measuring 7 mm, probably a small enchondroma. There is severe | | | diffuse bilateral subcutaneous edema, most prominent laterally, | | | nonspecific in etiology. No focal fluid collection is identified | | | with suggest a soft tissue abscess. There is also moderate to severe | | | bilateral muscle edema, left worse than right involving the gluteus | | | medius and minimus muscles, abductor muscles, obturator muscles, and | | | iliopsoas muscles. This is nonspecific in etiology and could | | | potentially indicate myositis. This is mildly progressive from the | | | prior examination. If there is a history of long-standing | | | diabetes, then diabetic muscle infarctions would be possible. | | | IMPRESSION: 1. Fluid in the left trochanteric bursa, consistent | | | with bursitis. This may or may not be infected. 2. Extensive | | | diffuse bilateral muscle and subcutaneous edema, progressive from the | | | prior examination. Would consider severe myositis and cellulitis. | | | If there is a history of diabetes, consider diabetic muscle | | | infarctions. 3. Small bilateral hip joint effusions. 4. Small | | | enchondroma in the proximal left femur. 5. Mild bilateral inguinal | | | lymphadenopathy, mildly progressive. | | + + + + + | Procedure Note | + + | Khalif Palm Conversion - 02/13/2019 4:30 PM PDT CAROL EARNEST HIP LEFT WO | | CONTRAST10/12/2012 10:22 AM HISTORY:Left hip pain. Concern for infection. | | TECHNIQUE:Multiplanar MR imaging was performed to the left hip without gadolinium. | | FINDINGS:Compared with July 06, 2012. There are multifocal areas of red marrow | | reconversion in the pelvis and proximal femurs. There is no abnormal signal intensity | | identified that would be suspicious for osteomyelitis. There is no evidence of | | avascular necrosis of the femoral heads. There are small bilateral hip joint effusions, | | symmetrical in size. There is mild fluid in the left trochanteric bursa, consistent | | with bursitis. Consider needle aspiration to exclude infected bursitis. There is | | bilateral inguinal lymphadenopathy measuring up to 13 x 24 mm on the left. This is | | mildly progressive from the prior study. There is a small T2 hyperintense microlobulated | | lesion in the proximal left femur measuring 7 mm, probably a small enchondroma. There | | is severe diffuse bilateral subcutaneous edema, most prominent laterally, nonspecific in | | etiology. No focal fluid collection is identified with suggest a soft tissue abscess. | | There is also moderate to severe bilateral muscle edema, left worse than right | | involving the gluteus medius and minimus muscles, abductor muscles, obturator muscles, | | and iliopsoas muscles. This is nonspecific in etiology and could potentially indicate | | myositis. This is mildly progressive from the prior examination. If there is a history | | of long-standing diabetes, then diabetic muscle infarctions would be possible. | | IMPRESSION:1. Fluid in the left trochanteric bursa, consistent with bursitis. This may | | or may not be infected.2. Extensive diffuse bilateral muscle and subcutaneous edema, | | progressive from the prior examination. Would consider severe myositis and cellulitis. | | If there is a history of diabetes, consider diabetic muscle infarctions.3. Small | | bilateral hip joint effusions.4. Small enchondroma in the proximal left femur.5. Mild | | bilateral inguinal lymphadenopathy, mildly progressive. | |1. Fluid in the left trochanteric bursa, consistent with bursitis. This may or may not be infected. | |2. Extensive diffuse bilateral muscle and subcutaneous edema, progressive from the prior e xamination. Would consider severe myositis and cellulitis. If there is a history of diabet es, consider diabetic muscle infarctions. | |3. Small bilateral hip joint effusions. | |4. Small enchondroma in the proximal left femur. | |5. Mild bilateral inguinal lymphadenopathy, mildly progressive. | | | | | + + NM Bone Scan 3 Phase (10/11/2012 4:45 PM PDT) + + | Specimen | + + | | + + + + + | Narrative | Performed At | + + + | EXAM: TRIPLE-PHASE BONE SCAN LIMITED EXAM DATE: 10/11/2012 04:52 | | | PM. CLINICAL HISTORY: Infection. Left hip pain. Bacteremia. | | | COMPARISON: None. TECHNIQUE: Patient was injected with 32 mCi of | | | technetium 99m MDP intravenously with flow phase gamma camera imaging | | | anteriorly over the hips, 5 seconds per frame for 1 minute. | | | Subsequently, blood pool images of the hips were obtained. The patient | | | returned 3 hours later for multiple spot images of the pelvis and | | | hips. FINDINGS: Flow Phase: There is symmetric flow to | | | bilateral hips. Blood Pool Phase: Increased soft tissue activity | | | noted over the left hip and intratrochanteric region. Delayed | | | Phase: Bone scan images of the hip and pelvis reveal normal and | | | symmetric activity. No focal bone abnormalities are appreciated. | | | IMPRESSION: Abnormal soft tissue activity over the left hip in the | | | blood pool phase is compatible with soft tissue inflammation. No | | | significant increase in bone activity on the delayed image. [facility] | | | Electronically signed by Favio Archuleta MD on Oct 11 2012 6:55PM | | | SITE ID: [id number] | | + + + + ---------+ | Procedure Note | + ---------+ | Néstor, Khalif Conversion - 02/13/2019 4:30 PM PDT EXAM:TRIPLE-PHASE BONE SCAN LIMITED | | EXAM DATE: 10/11/2012 04:52 PM. CLINICAL HISTORY: Infection. Left hip pain. Bacteremia. | | COMPARISON: None. TECHNIQUE: Patient was injected with 32 mCi of technetium 99m MDP | | intravenously with flow phase gamma camera imaging anteriorly over the hips, 5 seconds | | per frame for 1 minute. Subsequently, blood pool images of the hips were obtained. The | | patient returned 3 hours later for multiple spot images of the pelvis and hips. | | FINDINGS: Flow Phase: There is symmetric flow to bilateral hips. Blood Pool Phase: | | Increased soft tissue activity noted over the left hip and intratrochanteric region. | | Delayed Phase: Bone scan images of the hip and pelvis reveal normal and symmetric | | activity. No focal bone abnormalities are appreciated. IMPRESSION: Abnormal soft tissue | | activity over the left hip in the blood pool phase is compatible with soft tissue | | inflammation. No significant increase in bone activity on the delayed image. [facility] | | Electronically signed by Favio Archuleta MD on Oct 11 2012 6:55PM SITE ID: [id number] | | | |Flow Phase: There is symmetric flow to bilateral hips. | | | |Blood Pool Phase: Increased soft tissue activity noted over the left hip and intratrochante kaylie region. | | | |Delayed Phase: Bone scan images of the hip and pelvis reveal normal and symmetric activity. No focal bone abnormalities are appreciated. | | | |IMPRESSION: Abnormal soft tissue activity over the left hip in the blood pool phase is comp atible with soft tissue inflammation. No significant increase in bone activity on the delaye d image. | | | |[facility] | | | | Electronically signed by Favio Archuleta MD on Oct 11 2012 6:55PM SITE ID: [id number] | + ---------+ XR Hip Left 2-3 Views (10/10/2012 6:26 PM PDT) + + | Specimen | + + | | + + + + + | Narrative | Performed At | + + + | History: 47 year old male with hip pain. Bacteremia Technique: 2 | | | views of the left hip. No prior study for comparison. Findings: | | | No erosive change, joint space is symmetric. Range of motion normal. | | | No fracture or aggressive lesion, but extensive calcified vasculopathy | | | is appreciated. No subcutaneous emphysema On the AP film there is | | | some lucency about the inferior scrotum near the midline but this may | | | simply be artifactual, should be easily correlated with physical | | | examination. Bones are normal in density and mineralization and | | | there is no evident aggressive lesion. Normal round contour of both | | | femoral heads without significant erosive or productive arthropathy. | | | No lytic lesion. Punctate calcification above the right transverse | | | process of L5. IMPRESSION: No focal disease about the left hip | | | discernible to this technique. If infection is suspect, note this | | | examination is of low sensitivity both for osteomyelitis and for | | | septic arthropathy. | | + + + + + | Procedure Note | + + | Néstor, Rad Conversion - 02/13/2019 4:30 PM PDT History: 47 year old male with hip | | pain. Bacteremia Technique: 2 views of the left hip. No prior study for comparison. | | Findings: No erosive change, joint space is symmetric. Range of motion normal. No | | fracture or aggressive lesion, but extensive calcified vasculopathy is appreciated. No | | subcutaneous emphysema On the AP film there is some lucency about the inferior scrotum | | near the midline but this may simply be artifactual, should be easily correlated with | | physical examination. Bones are normal in density and mineralization and there is no | | evident aggressive lesion. Normal round contour of both femoral heads without | | significant erosive or productive arthropathy. No lytic lesion. Punctate calcification | | above the right transverse process of L5. IMPRESSION: No focal disease about the left | | hip discernible to this technique. If infection is suspect, note this examination is of | | low sensitivity both for osteomyelitis and for septic arthropathy. | | | |If infection is suspect, note this examination is of low sensitivity both for osteomyelitis and for septic arthropathy. | | | | | + + Culture, Blood, 2nd Specimen (10/10/2012 6:00 PM PDT) + + | Specimen | + + | Blood specimen | | (specimen) | + + + + + | Narrative | Performed At | + + + | Specimen Description BLOOD, PERIPHERAL DRAW | EXTERNAL LAB | | Testing performed | | | at [facility] [place] [address];[place] [address] SPECIAL REQUESTS | | | RAC | | | Testing performed at [facility];[address] [place], [place] [address]ft [facility];[place] [address] | | | CULTURE NO GROWTH IN 5 DAYS. | | | Testing | | | performed at [facility] [place] [address];[place] [address] REPORT STATUS | | | 10/16/2012 FINAL | | + + + + +---------+ + + | Performing | Address | City/State/Zipcode | Phone Number | | Organization | | | | + +---------+ + + | EXTERNAL LAB | | | | + +---------+ + + Culture, Blood (10/10/2012 5:25 PM PDT) + + | Specimen | + + | Blood specimen | | (specimen) | + + + + + | Narrative | Performed At | + + + | Specimen Description BLOOD, PERIPHERAL DRAW | EXTERNAL LAB | | Testing performed | | | at [facility] [place] [address];[place] [address] SPECIAL REQUESTS | | | RAC | | | Testing performed at [facility];[address] [place] [address];[place] [address] | | | CULTURE NO GROWTH IN 5 DAYS. | | | Testing | | | performed at [facility] [place] [address];[place] [address] REPORT STATUS | | | 10/16/2012 FINAL | | + + + + +---------+ + + | Performing | Address | City/State/Zipcode | Phone Number | | Organization | | | | + +---------+ + + | EXTERNAL LAB | | | | + +---------+ + + XR Chest 1 Vw (10/10/2012 1:26 AM PDT) + + | Specimen | + + | | + + + + + | Narrative | Performed At | + + + | EXAM: CHEST RADIOGRAPHY EXAM DATE: 10/10/2012 01:27 AM | | | CLINICAL HISTORY: Shortness of breath. Bacteremia. Failure to thrive. | | | COMPARISON: 10/08/2012. TECHNIQUE: 1 view. FINDINGS: | | | There is borderline cardiomegaly. Dense opacification is seen in the | | | left lower lobe. Small left pleural effusion is seen. Right lung is | | | grossly clear. Pulmonary vascular congestion is not seen. | | | IMPRESSION: 1. Left lower lobe consolidation and small left effusion. | | | 2. Borderline cardiomegaly. [facility] Electronically signed by | | | Douglas Ortiz MD on Oct 10 2012 10:01PM SITE ID: [id number] | | + + + + + | Procedure Note | + + | Néstor, Rad Conversion - 02/13/2019 4:30 PM PDT EXAM:CHEST RADIOGRAPHY EXAM DATE: | | 10/10/2012 01:27 AM CLINICAL HISTORY: Shortness of breath. Bacteremia. Failure to thrive. | | COMPARISON: 10/08/2012. TECHNIQUE: 1 view. FINDINGS:There is borderline cardiomegaly. | | Dense opacification is seen in the left lower lobe. Small left pleural effusion is seen. | | Right lung is grossly clear. Pulmonary vascular congestion is not seen. IMPRESSION:1. | | Left lower lobe consolidation and small left effusion.2. Borderline cardiomegaly. [facility] | | Electronically signed by Douglas Ortiz MD on Oct 10 2012 10:01PM SITE ID: [id number] | |COMPARISON: 10/08/2012. | | | |TECHNIQUE: 1 view. | | | |FINDINGS: | |There is borderline cardiomegaly. Dense opacification is seen in the left lower lobe. Small left pleural effusion is seen. Right lung is grossly clear. Pulmonary vascular congestion i s not seen. | | | |IMPRESSION: | |1. Left lower lobe consolidation and small left effusion. | |2. Borderline cardiomegaly. | | | |[facility] | | | | Electronically signed by Douglas Ortiz MD on Oct 10 2012 10:01PM SITE ID: [id number] | + + ECHO Transesophageal (DANY) (10/09/2012 5:41 PM PDT) + + | Specimen | + + | | + + + + + | Narrative | Performed At | + + + | Patient Name: CAROL POTTER Date of : 1965 | | | Performing Physician: Beny Valencia MD | | | | | | INDICATIONS endocarditis CONCLUSIONS | | | 1. The left ventricle is moderately dilated. 2. Overall left | | | ventricular systolic function is mild-moderately impaired with, an EF | | | between 40 - 45 %. 3. No vegetation visualized. 4. Zqnr-lz-lwpjgbgx | | | mitral regurgitation is present. 5. There is a trivial pericardial | | | effusion present. FINDINGS -------- Procedure: The patient was | | | brought to the catheterization laboratory holding area in the fasting | | | state. Informed consent was obtained after benefits and risks of the | | | procedure were discussed with the patient including but not limited | | | to the potential for esophageal puncture and . The oropharynx | | | was anesthetized with 1% Hurricane spray. After conscious sedation, | | | the transesophageal probe was advanced and placed in the esophagus | | | and multiple projections of the cardiovascular structures were | | | acquired and recorded. This was followed by advancement of the | | | probe into the stomach for transgastric imaging. Finally, | | | interrogation of the descending aorta and arch was performed. The | | | probe was removed. The patient tolerated the procedure well. | | | There were no immediate complications. 2 D, pulsed and continuous | | | wave form and color images were interpreted in real time. | | | Medications: 3 mg of Versed and Study quality: This was a technically | | | good study. Left Ventricle: The left ventricle is moderately | | | dilated. Left Ventricle: Left Ventricle: Overall left ventricular | | | systolic function is mild-moderately impaired with, an EF between 40 - | | | 45 %. Left Atrium: The left atrium is normal in size and function. | | | Left Atrium: Normal left atrial appendage without evidence for | | | thrombi. Right Ventricle: The right ventricle is normal in size and | | | function. Right Atrium: The right atrium is normal in size and | | | function. Interatrial Septum: No evidence for intra-atrial shunt by | | | bubble study. Interatrial Septum: No shunt seen with color Doppler. | | | Interatrial Septum: No shunt seen with bubble study. Aortic Valve: | | | The aortic valve is trileaflet, and appears structurally normal. No | | | aortic stenosis or regurgitation. Aortic Valve: There is mild aortic | | | valve sclerosis without stenosis. Aortic Valve: There is no evidence | | | of aortic stenosis. Aortic Valve: No vegetation visualized. Mitral | | | Valve: Gowl-cd-kurkialf mitral regurgitation is present. Tricuspid | | | Valve: The tricuspid valve appears structurally normal. Trace/Mild | | | (physiologic) regurgitation. Aorta: Ascending aorta, aortic arch and | | | descending thoracic aorta are of normal caliber with no significant | | | atherosclerotic disease. Mass: No mass visualized. Thrombus: No clot | | | visualized. Pericardium: There is a trivial pericardial effusion | | | present. MEASUREMENTS Destination Specialist: CM | | | Authenticated by: Beny Valencia MD Report Date/Time: 10-09-2012 | | | 18:41:13 | | + + + + + | Procedure Note | + + | Néstor, Rad Conversion - 02/13/2019 4:30 PM PDT Patient Name: Mohinder POTTER of | | : 1965 Performing Physician: Beny Valencia | | MD INDICATIONS e | | ndocarditis CONCLUSIONS 1. The left ventricle is moderately dilated.2. Overall | | left ventricular systolic function is mild-moderately impaired with, an EF between 40 - | | 45 %.3. No vegetation visualized.4. Pvyo-wf-befalbhv mitral regurgitation is present.5. | | There is a trivial pericardial effusion present. FINDINGS--------Procedure: The patient | | was brought to the catheterization laboratory holding area in the fasting state. | | Informed consent was obtained after benefits and risks of the procedure were discussed | | with the patient including but not limited to the potential for esophageal puncture and | | . The oropharynx was anesthetized with 1% Hurricane spray. After conscious | | sedation, the transesophageal probe was advanced and placed in the esophagus and | | multiple projections of the cardiovascular structures were acquired and recorded. This | | was followed by advancement of the probe into the stomach for transgastric imaging. | | Finally, interrogation of the descending aorta and arch was performed. The probe was | | removed. The patient tolerated the procedure well. There were no immediate | | complications. 2 D, pulsed and continuous wave form and color images were interpreted | | in real time.Medications: 3 mg of Versed andStudy quality: This was a technically good | | study.Left Ventricle: The left ventricle is moderately dilated.Left Ventricle:Left | | Ventricle: Overall left ventricular systolic function is mild-moderately impaired with, | | an EF between 40 - 45 %.Left Atrium: The left atrium is normal in size and function.Left | | Atrium: Normal left atrial appendage without evidence for thrombi.Right Ventricle: The | | right ventricle is normal in size and function.Right Atrium: The right atrium is normal | | in size and function.Interatrial Septum: No evidence for intra-atrial shunt by bubble | | study.Interatrial Septum: No shunt seen with color Doppler.Interatrial Septum: No shunt | | seen with bubble study.Aortic Valve: The aortic valve is trileaflet, and appears | | structurally normal. No aortic stenosis or regurgitation.Aortic Valve: There is mild | | aortic valve sclerosis without stenosis.Aortic Valve: There is no evidence of aortic | | stenosis.Aortic Valve: No vegetation visualized.Mitral Valve: Wwio-sy-qwrpnwwm mitral | | regurgitation is present.Tricuspid Valve: The tricuspid valve appears structurally | | normal. Trace/Mild (physiologic) regurgitation.Aorta: Ascending aorta, aortic arch and | | descending thoracic aorta are of normal caliber with no significant atherosclerotic | | disease.Mass: No mass visualized.Thrombus: No clot visualized.Pericardium: There is a | | trivial pericardial effusion present. MEASUREMENTS Destination Specialist: | | CMAuthenticated by: Beny Valencia [facility] Date/Time: 10-09-2012 18:41:13 | |Right Atrium: The right atrium is normal in size and function. | |Interatrial Septum: No evidence for intra-atrial shunt by bubble study. | |Interatrial Septum: No shunt seen with color Doppler. | |Interatrial Septum: No shunt seen with bubble study. | |Aortic Valve: The aortic valve is trileaflet, and appears structurally normal. No aortic st enosis or regurgitation. | |Aortic Valve: There is mild aortic valve sclerosis without stenosis. | |Aortic Valve: There is no evidence of aortic stenosis. | |Aortic Valve: No vegetation visualized. | |Mitral Valve: Brrt-yt-gyobwmgo mitral regurgitation is present. | |Tricuspid Valve: The tricuspid valve appears structurally normal. Trace/Mild (physiologic) regurgitation. | |Aorta: Ascending aorta, aortic arch and descending thoracic aorta are of normal caliber wit h no significant atherosclerotic disease. | |Mass: No mass visualized. | |Thrombus: No clot visualized. | |Pericardium: There is a trivial pericardial effusion present. | | | |MEASUREMENTS | | | | | |Destination Specialist: CM | |Authenticated by: Beny Valencia MD | |Report Date/Time: 10-09-2012 18:41:13 | + + XR Chest 1 Vw (10/08/2012 12:33 PM PDT) + + | Specimen | + + | | + + + + + | Narrative | Performed At | + + + | CAROL TARIQ XR CHEST 1 VIEW 10/08/2012 12:20 PM History: 47 | | | years. Male. Acute shortness of breath. History of hypertension. | | | Chronic renal failure. Technique: AP portable upright technique | | | was performed at 1225 hours. Findings: Increased density is | | | visualized at the left lung base, behind the left heart obscuring the | | | left hemidiaphragm, suggesting segmental left lower lobe | | | atelectasis/pneumonia. No visible left pleural effusion. | | | Peribronchial interstitial density is mild in the perihilar areas, | | | extending into the lower lobes, suggesting mild interstitial pulmonary | | | edema. The right pleural space is clear. Mild cardiomegaly is | | | present. The pulmonary justin and mediastinal contours are normal. There | | | is mild calcification of the thoracic aorta, but no aortic dilatation | | | or tortuosity. No central venous catheter visualized. | | | Conclusions: 1. Mild interstitial pulmonary edema and cardiomegaly | | | suggesting acute congestive heart failure. 2. Left lower lobe | | | segmental atelectasis/pneumonia. 3. All findings are new as | | | compared with 07/07/12. | | + + + + -------+ | Procedure Note | + -------+ | Néstor, Rad Conversion - 02/13/2019 4:30 PM PDT CAROL POTTERXR CHEST 1 VIEW10/08/2012 12:20 | | PM History: 47 years. Male. Acute shortness of breath. History of hypertension. | | Chronic renal failure. Technique: AP portable upright technique was performed at 1225 | | hours. Findings: Increased density is visualized at the left lung base, behind the left | | heart obscuring the left hemidiaphragm, suggesting segmental left lower lobe | | atelectasis/pneumonia. No visible left pleural effusion. Peribronchial interstitial | | density is mild in the perihilar areas, extending into the lower lobes, suggesting mild | | interstitial pulmonary edema. The right pleural space is clear. Mild cardiomegaly is | | present. The pulmonary justin and mediastinal contours are normal. There is mild | | calcification of the thoracic aorta, but no aortic dilatation or tortuosity. No central | | venous catheter visualized. Conclusions:1. Mild interstitial pulmonary edema and | | cardiomegaly suggesting acute congestive heart failure.2. Left lower lobe segmental | | atelectasis/pneumonia.3. All findings are new as compared with 07/07/12. Electronically | | signed by Carlos Eduardo Bowman MD on 10/08/2012 12:59 PM | |Conclusions: | |1. Mild interstitial pulmonary edema and cardiomegaly suggesting acute congestive heart fa ilure. | |2. Left lower lobe segmental atelectasis/pneumonia. | |3. All findings are new as compared with 07/07/12. | | | | | + -------+ Culture, Blood (10/07/2012 1:59 PM PDT) + + | Specimen | + + | Blood specimen | | (specimen) | + + + + + | Narrative | Performed At | + + + | Specimen Description BLOOD, PERIPHERAL DRAW | EXTERNAL LAB | | Testing performed | | | at [facility] [place] [address];[place] [address] SPECIAL REQUESTS | | | [id number] | | | Testing performed at [facility];[address] [place] [address];[place] [address] | | | GRAM STAIN GRAM POSITIVE COCCI | | | CALLED TO BRAYDEN ON | | | 6RP AT [id number] [id number] BY TR READ BACK RESULTS VERIFIED | | | GRAM POSITIVE COCCI AEROBIC BOTTLE | | | CALLED TO LUIS CARLOS | | | S ON 6RP AT [phone] [id number] BY TR READ BACK RESULTS VERIFIED | | | Testing performed at [facility] | | | [facility];[place] [address] CULTURE | | | STAPHYLOCOCCUS AUREUSAbnormal | | | GROWTH IN TWO OF TWO BOTTLESAbnormal | | | TIME TO DETECTION: 0.79 | | | DAYS Testing | | | performed at [facility], [address] [place] [address] | | | REPORT STATUS 10/11/2012 FINAL | | | Organism STAPHYLOCOCCUS AUREUS | | | Suscepibility for - STAPHYLOCOCCUS AUREUS Gentamicin | | | SUSCEPTIBLESensitive Oxacillin | | | SUSCEPTIBLESensitive Penicillin G | | | RESISTANT Resistant Tetracycline | | | SUSCEPTIBLESensitive Trimethoprim + | | | SulfamethoxazoleSUSCEPTIBLESensitive Vancomycin | | | SUSCEPTIBLESensitive Moxifloxacin | | | SUSCEPTIBLESensitive | | + + + + +---------+ + + | Performing | Address | City/State/Zipcode | Phone Number | | Organization | | | | + +---------+ + + | EXTERNAL LAB | | | | + +---------+ + + Culture, Blood, 2nd Specimen (10/07/2012 1:35 PM PDT) + + | Specimen | + + | Blood specimen | | (specimen) | + + + + + | Narrative | Performed At | + + + | Specimen Description BLOOD, PERIPHERAL DRAW | EXTERNAL LAB | | Testing performed | | | at [facility];[address] [place] [address];[place] [address] SPECIAL REQUESTS | | | RAC | | | [place] performed [place] [facility] [place] [address];[place] [address] | | | GRAM STAIN GRAM POSITIVE COCCI | | | SEEN ON SMEAR FROM ANAEROBIC BOTTLE | | | SMEAR RESULTS CALLED TO AND READ BACK BY: KARAN | | | S/6RP AT [phone] BY ND | | | GRAM POSITIVE COCCI AEROBIC BOTTLE | | | CALLED TO LUIS CARLOS Rose ON 6RP AT [phone] [id number] | | | BY TR READ BACK RESULTS VERIFIED | | | Testing performed at [facility] [facility];[place], [place] | | | [address] CULTURE STAPHYLOCOCCUS | | | AUREUS REFER TO CULTURE [id number] COLLECTED THE SAME DAY FOR | | | SUSCEPTIBILITYAbnormal | | | GROWTH IN TWO OF TWO BOTTLESAbnormal | | | TIME TO DETECTION: 0.71 DAYS | | | Testing performed at [facility], [address] | | [place] [address] REPORT STATUS | | | 10/11/2012 FINAL | | + + + + +---------+ + + | Performing | Address | City/State[facility] | Phone Number | | Organization | | | | + +---------+ + + | EXTERNAL LAB | | | | + +---------+ + + XR Abdomen AP (10/06/2012 12:00 PM PDT) + + | Specimen | + + | | + + + + + | Narrative | Performed At | + + + | [facility] X[facility] ABDOMEN 1 VIEW 10/06/2012 11:43 AM HISTORY: 47 | | | years. Male. Abdominal pain. TECHNIQUE: XR ABDOMEN 1 VIEW. | | | COMPARISON: CT abdomen pelvis 04/13/2012. FINDINGS: Bowel gas | | | pattern is normal. No evidence of bowel obstruction or free air. | | | The outlines of the abdominal organs and psoas muscles are normal. | | | No suspicious pathologic calcifications identified. No significant | | | skeletal abnormality identified in abdomen or pelvis. | | | IMPRESSION: 1. No acute findings in the abdomen. Electronically | | | signed by Medhat Terry DO on 10/06/2012 2:08 PM | | + + + + + | Procedure Note | + + | Néstor, Rad Conversion - 02/13/2019 4:30 PM PDT [facility] 1 VIEW10/06/2012 | | 11:43 AM HISTORY:47 years. Male. Abdominal pain. TECHNIQUE:XR ABDOMEN 1 VIEW. | | COMPARISON:CT abdomen pelvis 04/13/2012. FINDINGS:Bowel gas pattern is normal. No | | evidence of bowel obstruction or free air. The outlines of the abdominal organs and | | psoas muscles are normal. No suspicious pathologic calcifications identified. No | | significant skeletal abnormality identified in abdomen or pelvis. IMPRESSION:1. No | | acute findings in the abdomen. | | 2:08 PM | |XR ABDOMEN 1 VIEW. | | | |COMPARISON: | |CT abdomen pelvis 04/13/2012. | | | |FINDINGS: | |Bowel gas pattern is normal. No evidence of bowel obstruction or free air. The outlines o f the abdominal organs and psoas muscles are normal. No suspicious pathologic calcification s identified. No significant skeletal abnormality identified in | |abdomen or pelvis. | | | |IMPRESSION: | |1. No acute findings in the abdomen. | | | | | + + Culture, Blood, 2nd Specimen (10/04/2012 5:59 PM PDT) + + | Specimen | + + | Blood specimen | | (specimen) | + + + + + | Narrative | Performed At | + + + | Specimen Description BLOOD, PERIPHERAL DRAW | EXTERNAL LAB | | Testing performed | | | at [facility];[address] [place] [address];[place] [address] SPECIAL REQUESTS | | | L ARM | | | Testing performed at [facility];[address] [place] [address];[place] [address] | | | CULTURE NO GROWTH IN 5 DAYS. | | | Testing | | | performed at [facility] [place] [address];[place] [address] REPORT STATUS | | | 10/10/2012 FINAL | | + + + + +---------+ + + | Performing | Address | City/State/Zipcode | Phone Number | | Organization | | | | + +---------+ + + | EXTERNAL LAB | | | | + +---------+ + + Culture, Blood (10/04/2012 5:55 PM PDT) + + | Specimen | + + | Blood specimen | | (specimen) | + + + + + | Narrative | Performed At | + + + | Specimen Description BLOOD, PERIPHERAL DRAW | EXTERNAL LAB | | Testing performed | | | at [facility] [place] [address];[place] [address] SPECIAL REQUESTS | | | L HAND | | | Testing performed at [facility];[address] [place] [address];[place] [address] | | | CULTURE NO GROWTH IN 5 DAYS. | | | Testing | | | performed at [facility] [place] [address];[place] [address] REPORT STATUS | | | 10/10/2012 FINAL | | + + + + +---------+ + + | Performing | Address | City/State/Zipcode | Phone Number | | Organization | | | | + +---------+ + + | EXTERNAL LAB | | | | + +---------+ + + HISTORICAL MICROBIOLOGY RESULT (10/04/2012 3:15 AM PDT) + + | Specimen | + + | Stool specimen | | (specimen) | + + + + + | Narrative | Performed At | + + + | Toxigenic C Difficile POSITIVE for Toxigenic | EXTERNAL LAB | | C.diffAbnormal Testing performed at [facility];[address] [place] [address];[place], [place] | | | [phone] NAP1 BI 027 NAP1 BI | | | PRESUMPTIVE NEGATIVE Detection of 027 NAP1 BI strains of C. difficile | | | is presumptive and for epidemiological purposes and not intended to | | | guide or monitor treatment for C. difficile infections. Testing | | | performed at [facility];[address] [place] [address];[place] [address] | | + + + + +---------+ + + | Performing | Address | City/State/Zipcode | Phone Number | | Organization | | | | + +---------+ + + | EXTERNAL LAB | | | | + +---------+ + + XR Cervical Spine 2 or 3 Views (10/03/2012 10:06 PM PDT) + + | Specimen | + + | | + + + + + | Narrative | Performed At | + + + | [facility] XR CERVICAL SPINE LIMITED 2-3 VIEW 10/03/2012 9:55 PM | | | HISTORY: 47 years. Male. Neck pain TECHNIQUE: 4 view(s) | | | obtained. COMPARISON: None. FINDINGS: The cervical vertebrae | | | are visualized from C1 through C7. The vertebral bodies of the | | | cervical spine demonstrate normal height and alignment. The disk | | | spaces are normal in height although mild degenerative changes seen at | | | C5-6 with anterior osteophyte formation. The odontoid is | | | only seen on the lateral projection and appears grossly normal. The | | | visualized portions of the mandible and calvarium are normal. No | | | widening of the prevertebral soft tissue space is seen. The airway | | | is patent. IMPRESSION: 1. Minimal degenerative changes seen at | | | C5-6. No other findings | | + + + + + | Procedure Note | + + | Néstor, Rad Conversion - 02/13/2019 4:30 PM PDT [facility] CERVICAL SPINE LIMITED 2-3 | | VIEW10/03/2012 9:55 PM HISTORY:47 years. Male. Neck pain TECHNIQUE:4 view(s) obtained. | | COMPARISON:None. FINDINGS:The cervical vertebrae are visualized from C1 through C7. The | | vertebral bodies of the cervical spine demonstrate normal height and alignment. The | | disk spaces are normal in height although mild degenerative changes seen at C5-6 with | | anterior osteophyte formation. The odontoid is only seen on the lateral projection | | and appears grossly normal. The visualized portions of the mandible and calvarium are | | normal. No widening of the prevertebral soft tissue space is seen. The airway is | | patent. IMPRESSION:1. Minimal degenerative changes seen at C5-6. No other findings | | | |COMPARISON: | |None. | | | |FINDINGS: | |The cervical vertebrae are visualized from C1 through C7. The vertebral bodies of the cervi herminia spine demonstrate normal height and alignment. The disk spaces are normal in height alt kurtis mild degenerative changes seen | |at C5-6 with anterior osteophyte | |formation. The odontoid is only seen on the lateral projection and appears grossly nor mal. The visualized portions of the mandible and calvarium are normal. No widening of the prevertebral soft tissue space is seen. The airway is patent. | | | |IMPRESSION: | |1. Minimal degenerative changes seen at C5-6. No other findings | | | | | + + documented in this encounter Visit Diagnoses + + | Diagnosis | + + | Adult failure to thrive | + + | PUD (peptic ulcer disease) Peptic ulcer, unspecified site, unspecified as acute or | | chronic, without mention of hemorrhage, perforation, or obstruction | + + | Secondary hyperparathyroidism (of renal origin) | + + | Vitamin D deficiency Unspecified vitamin D deficiency | + + | C. 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) Type II or unspecified | | type diabetes mellitus with renal manifestations, not stated as uncontrolled | + + | HTN (hypertension) Unspecified essential hypertension | + + | Bacteremia | + + | Staphylococcus aureus bacteremia with sepsis (HCC) Methicillin susceptible | | staphylococcus aureus septicemia | + + | Fever Fever, unspecified | + + | Hypoalbuminemia Other disorders of plasma protein metabolism | + + | End stage renal failure on dialysis (HCC) End stage renal disease | + + | Obesity (BMI 30-39.9) Obesity, unspecified | + + | Hyponatremia Hyposmolality and/or hyponatremia | + + | Malnutrition of moderate degree (HCC) Malnutrition of moderate degree | + + | Weakness generalized Other malaise and fatigue | + + | Incomplete RBBB Right bundle branch block | + + | Anemia of chronic kidney failure Anemia in chronic kidney disease | + + | ESRD (end stage renal disease) on dialysis (HCC) End stage renal disease | + + | Gout Gout, unspecified | + + | Hyperphosphatemia Disorders of phosphorus metabolism | + + | Hypothyroidism Unspecified hypothyroidism | + + documented in this encounter
--- OUTSIDE RECORDS SUMMARY | ~2019-05-20 | XMS | Encounter Summary ---
Demographics + + + | Address | [address] | | | [place] [address] | + + + | Home Phone | | + + + | Preferred Language | Unknown | + + + | Marital Status | Unknown | + + + | Holiness Affiliation | [id number] | + + + [...] Team Providers + +------+ + | Care Electrical Electronics Engineer Name | Role | Phone | + +------+ + PCP | Unavailable | + +------+ + Encounter Details +--------+ + + + + | Date | Type | Department | Care Team | Description | +--------+ + + + + | 07// | Orders Only | [facility] | Provider, | | | 2018 | | [facility] | [address] | | | | | [address] | [place] | | | | | [address] [place], [place] | [place] [address] | | | | | [address] | | | | | | [phone] | | | +--------+ + + + [...]
--- OUTSIDE RECORDS SUMMARY | ~2019-05-20 | XMS | Encounter Summary ---
Demographics + + + | Address | [address] | | | [place] [address] | + + + | Home Phone | | + + + | Preferred Language | Unknown | + + + | Marital Status | Unknown | + + + | Synagogue Affiliation | [id number] | + + + | Race | Unknown | + + + | Ethnic Group | Unknown | + + + Author + + + | Author | [facility] | | | and [place] | + + + | Organization | [facility] | | | [...] Team Providers + +------+ + | Care Counter Supervisor Name | Role | Phone | + +------+ + PCP | Unavailable | + +------+ + Encounter Details +--------+ + + + + | Date | Type | Department | Care Team | Description | +--------+ + + + + | 03/15/ | Hospital | [facility] | RichichitraBoomr, | Sepsis ([facility]); | | 2013 - | Encounter | [facility] | MD Umer Caraballo | Pneumonia; ESRD on | | | | [address] | [place] [address] | hemodialysis ([facility]); | | 03/20/ | | [address] | [phone] | DM (diabetes | | 2013 | | [place], [place] | | mellitus) ([facility]); | | | | [address] | | Gram-positive cocci | | | | [phone] | | bacteremia; Anemia | | | | | | of chronic kidney | | | | | | failure; ESRD (end | | | | | | stage renal disease) | | | | | | on dialysis ([facility]); | | | | | | HTN (hypertension); | | | | | | Diabetes mellitus | | | | | | with ESRD (end-stage | | | | | | renal disease) | | | | | | ([facility]) | +--------+ + + + + Social [...] from th e original. Discharge Summaries by Douglas Stevenson MD at 03/20/14 8955 Author: Douglas Stevenson MD Service: (none) Author Type: Physician Filed: 04/02/14 0034 Date of Service: 03/20/14 084 Status: Signed Galley Hand: Douglas Stevenson MD (Physician) Related Notes: Original Note by Douglas Stevenson MD (Physician) filed at 03/20/14 5467 [facility] Service: Hospitalist Physician Discharge Summary Patient ID: Enrique Potter [id number] 48 y.o. 1965 Admit date: 03/15/2014 Discharge date and time: 03/20/2014 Admitting Physician: Paulie Mcgarry MD Discharge Physician: Douglas Stevenson MD Consultants: Treatment Team: Consulting Physician: Kisha Tello MD Consulting Physician: Oskar Myeer MD Consulting Physician: Nakul Soria MD Admitting Provider: Paulie Mcgarry MD [...] hemodialysis center. He was originally seen at [facility] where h e was thought to [...] Disposition: *Home Follow up: Kisha Tello MD [address] [place] [address] [place] [address] In 2 weeks [facility] Dictation and mail clerks supervisor or software, Stublisher, used which may contain error for similar [...] W/ EGD; Surgeon: John Singleton MD; Location: [facility]; Se rvice: Gastroenterology; Laterality: N/A; Av fistula placement 05/06/2012 Procedure: AV FISTULA; Surgeon: Oskar Meyer MD; Location: [facility]; Service: Vascul ar; Laterality: Left; Left arm possible right Unlisted procedure arthroscopy shoulder rt , ligaments Knee arthroscopy 07/07/2012 Procedure: KNEE - ARTHROSCOPY; Surgeon: Favio Raza MD; Location: [facility]; S ervice: Orthopedics; Laterality: Right; After 1530 Catheter removal 07/07/2012 Procedure: DIALYSIS CATHETER REMOVAL; Surgeon: Oskar Meyer MD; Location: [facility] [place] OCEDURE; Service: General; Laterality: Right; perm cath Dialysis fistula creation 07/07/2012 Procedure: DIALYSIS CATHETER INSERTION; Surgeon: Oskar Meyer MD; Location: [facility] PROCEDURE; Service: General; Laterality: Left; temporary dialysis catheter Av fistula repair 07/11/2012 Procedure: AV FISTULA GRAFT REPAIR/REVISION; Surgeon: Oskar Meyer MD; [facility]; Service: Vascular; Laterality: Left; Superficialization of brachiobasilic fistula and right IJ perm cath insertion Dialysis fistula creation 07/11/2012 Procedure: DIALYSIS CATHETER INSERTION; Surgeon: Oskar Meyer MD; Location: [facility]; Service: Vascular; Laterality: Left; removed dialysis catheter from left neck and placed new on in left chest, attempted in right neck but unable to place Av fistula placement Right 02/09/2014 Procedure: AV FISTULA; Surgeon: Oskar Meyer MD; Location: [facility]; Service: Vascul ar; Laterality: Right; Discharged Condition: Stable for D/c as dictated above. 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 You may get the following medications from [...] | 14 | | | ol (ADVAIR, COOPERELA | times daily. | | | | [...] Progress Notes by Curtis Victoria RPH at 03/20/141005 Author: Curtis Victoria RPH Service: (none) Author Type: Pharmacist Filed: 03/20/141005 Date of Service: 03/20/141005 Status: Signed Galley Hand: Curtis Victoria RPH (Pharmacist) No HD scheduled for 03/20- no vanco dose needed. antosElsie vargas S - 03/20/2014 10:06 AM PDT Progress Notes by Elsie Sharma MD at 03/20/14 1006 Author: Elsie Sharma MD Service: Infectious Disease Author Type: Physician Filed: 03/20/14 1714 Date of Service: 03/20/14 1006 Status: Signed Galley Hand: Elsie Sharma MD (Physician) Related Notes: Original Note by Elsie Sharma MD (Physician) filed at 03/20/14 1016 [facility] Service: Infectious Disease Progress Note Hospital [...] secondary to long-term dialysis; pres ented to [facility] on 03/14 with symptoms of cough, chills, myalgias, fevers. P atient was thought to have pneumonia, possible septicemia. Cultures were drawn and he was s tarted on vancomycin and Zosyn and levofloxacin. He was then shift to [facility] for further ma nagement. Recently had right arm brachial basilic fistula creation in January 2014. Blood cultures drawn at [facility] prior to transfer now showing gram-positive cocci [...] chills and fever. It was then that taylor madrid had cultures drawn, antibiotics given and shifted initially to [facility] and then subsequently here. His medication at presentation includes doxycycline-unclear if he has continued to remain o n this-was due to complete this in April as per last infectious disease note. However he has not followed up with ID since November 2012. Blood culture growth from [facility] is MSSA in 4 out of 4 [...] mg Intravenous See Admin Instructions vitamin B hhqaeqp-V-zhhmr acid 1 tablet Oral Daily Continuous Infusions [...] Value Units Date/Time Blood Culture Set 1 [[id number]] (Abnormal) Collected: 03/17/14 1351 Order Status: Completed Updated: 03/20/14 0745 Specimen Information: Blood / Blood Line Draw Specimen Description BLOOD, LINE DRAW SPECIAL REQUESTS DIAL.LINE LD3 GRAM STAIN GRAM-POSITIVE COCCUS (A) GRAM STAIN SEEN IN AEROBIC BOTTLE GRAM STAIN SMEAR RESULTS CALLED TO AND READ BACK BY: GRAM ANNIE Martinez IN 6RP ON 03/18/14 AT 1620 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 STAPHYLOCOCCUS AUREUS (A) CULTURE FINDING OF ORGANISM GROWTH (A) CULTURE TIME TO DETECTION: CULTURE 0.95 DAYS CULTURE Result: Testing performed at [facility], [address] [place] [address] Culture & Susceptibility STAPHYLOCOCCUS AUREUS Antibiotic Sensitivity [...] with no growth to-date. Blood cultures from [facility] have grown MSSA. Radiology Results (last [...] vegetation. Fever with bacteremia: Blood cultures at [facility] are now identified as MSSA in 4 [...] Date of Service: 03/20/14 1000 Status: Signed Galley Hand: Sean Reid MD (Physician) [facility] Service: NEPHROLOGY Progress Note Enrique Potter 48 y.o. [id number] male [facility] Day: LOS: 5 days SUBJECTIVE .CHIEF COMPLAINT: I had fever HISTORY OF PRESENT ILLNESS: Enrique Potter is a 48 y.o. male with Significant PMH of ESRD secondary to Biopsy-proven Diabet ic nephropathy who is dialyzed Saturday and Saturday at [place] dialysis unit via [place] upper extremity brachio cephalic fistula , DM2 , Secondary hyperparathyroidism , Anemia o f chronic renal failure ,Treated with IV antibiotics for endocarditis in the past. Clotted A VF 11/04 when hospitalized at [facility] and had tunneled catheter placed. Right upper extremity bra chiocephalic fistula by Dr. Meyer 02/04, Presented with fever at the dialysis unit and complain ed of not feeling well for the past 2-3 days with cough, diffuse body aches. Indicated one o f his granddaughters being sick with a mild infection which resolved. Sent to [facility] after completion of his dialysis treatment where he was felt to have pneumonia with leukocytosis and infiltrate seen on the chest x-ray. MAXIMUM TEMPERA TURE noted to be 1 or 2.5. Started on intravenous Levaquin after blood cultures were drawn. Staph aureus bacteremia. 4 out of 4 bottles, Actually left (after review of X ray from [facility]) lower lobe pneumonia, most likely bacterial: Most [...] W/ EGD; Surgeon: John Singleton MD; Location: [facility]; Se rvice: Gastroenterology; Laterality: N/A; Av fistula placement 05/06/2012 Procedure: AV FISTULA; Surgeon: Oskar Meyer MD; Location: [facility]; Service: Vascul ar; Laterality: Left; Left arm possible right Unlisted procedure arthroscopy shoulder rt , ligaments Knee arthroscopy 07/07/2012 Procedure: KNEE - ARTHROSCOPY; Surgeon: Favio Raza MD; Location: [facility]; S ervice: Orthopedics; Laterality: Right; After 1530 Catheter removal 07/07/2012 Procedure: DIALYSIS CATHETER REMOVAL; Surgeon: Oskar Meyer MD; Location: [facility] [place] OCEDURE; Service: General; Laterality: Right; perm cath Dialysis fistula creation 07/07/2012 Procedure: DIALYSIS CATHETER INSERTION; Surgeon: Oskar Meyer MD; Location: [facility] PROCEDURE; Service: General; Laterality: Left; temporary dialysis catheter Av fistula repair 07/11/2012 Procedure: AV FISTULA GRAFT REPAIR/REVISION; Surgeon: Oskar Meyer MD; [facility]; Service: Vascular; Laterality: Left; Superficialization of brachiobasilic fistula and right IJ perm cath insertion Dialysis fistula creation 07/11/2012 Procedure: DIALYSIS CATHETER INSERTION; Surgeon: Oskar Meyer MD; Location: [facility]; Service: Vascular; Laterality: Left; removed dialysis catheter from left neck and placed new on in left chest, attempted in right neck but unable to place Av fistula placement Right 02/09/2014 Procedure: AV FISTULA; Surgeon: Oskar Meyer MD; Location: [facility]; Service: Vascul ar; Laterality: [...] KIDS. CURRENTLY UNEMPLOYED, BEFOR E WORKED AT [employer] [place]. Quit METHAMPHETAMINES PER PATIENT after t he [...] mg Intravenous See Admin Instructions vitamin B vaxbahd-Y-njrig acid 1 tablet Oral Daily Continuous Infusions [...] USE Clotted AVF 11/04 when hospitalized at [facility] and had tunneled catheter placed. Right upper [...] Results Component Value Date PTHINTACT 255* 04/02/2012 [id number] <12* 04/02/2012 Lab Results Component Value Date TSH 8.41* 09/11/2012 TSH 7.30* 07/06/2012 TSH 16.60* 04/03/2012 Lab Results Component Value Date URICACID 8.2 04/02/2012 Lab Results Component Value Date HGBA1C 5.8 11/10/2013 HGBA1C UNABLE TO CALCULATE 09/11/2012 HGBA1C 6.0 05/14/2012 IMAGING X-ray Chest 1 View 03/18/2014 ENRIQUE POTTER 1965 48 years XR CHEST [...] ASSESSMENT & [facility] [place] [facility]ESS: LIJ PERMACATH IN USE Clotted AVF 11/04 when hospitalized at [facility] and had tunneled catheter placed. Right upper [...] Leukocytosis resolved. Afebrile. BACTEREMIA: blood cultures from [facility] positive for [...] then 11/10/2013 at chronic hemodialysis unit in [place], I have already informed the nurse there. D/W SHYANNE REID MD 03/20/2014 Jeaneth Abraham MD - 03/19/2014 12:36 PM PDT . Progress Notes by Douglas Stevenson MD at 03/19/14 1236 Author: Douglas Stevenson MD Service: (none) Author Type: Physician Filed: 03/19/14 1239 Date of Service: 03/19/14 1236 Status: Signed Galley Hand: Douglas Stevenson MD (Physician) [facility] Service: Hospitalist Progress Note Hospital Day: LOS: 4 days Consultants: Treatment Team: Consulting Physician: Kisha Tello MD Consulting Physician: Oskar Meyer MD Consulting Physician: Nakul Soria MD Admitting Provider: Pauile Mcgarry MD The first problem in assessment [...] . Code Status: Full Code Dictation and mail clerks supervisor or software, Stublisher, used which may contain error for similar [...] mg Intravenous See Admin Instructions vitamin B ajuwyqj-W-rcvrv acid 1 tablet Oral Daily Continuous Infusions [...] might be different from th e original. Case Management by Dennis Velasquez RN at 03/19/14 1219 Author: Dennis Velasquez RN Service: (none) Author Type: Hospitality Housekeeper Filed: 03/19/14 1224 Date of Service: 03/19/14 1219 Status: Signed Galley Hand: Dennis Velasquez RN (Hospitality Housekeeper) Discharge Planning: Vancomycin Rx faxed to [place],([phone])also progress no trixie, and lab work as requested. Sean Willis MD - 03/19/2014 10:28 AM PDTFormatting of this note might be different from the o riginal. Progress Notes by Sean Reid MD at 03/19/14 1028 Author: Sean Reid MD Service: Nephrology Author Type: Physician Filed: 03/19/14 1336 Date of Service: 03/19/14 1028 Status: Signed Galley Hand: Sean Reid MD (Physician) [facility] Service: NEPHROLOGY Progress Note Enrique Potter 48 y.o. [id number] male [facility] Hospital Day: LOS: 4 days SUBJECTIVE .CHIEF COMPLAINT: I had fever HISTORY OF PRESENT ILLNESS: Enrique Potter is a 48 y.o. male with Significant PMH of ESRD secondary to Biopsy-proven Diabet ic nephropathy who is dialyzed Saturday and Saturday at [place] dialysis unit via [place] upper extremity brachio cephalic fistula , DM2 , Secondary hyperparathyroidism , Anemia o f chronic renal failure ,Treated with IV antibiotics for endocarditis in the past. Clotted A VF 11/04 when hospitalized at [facility] and had tunneled catheter placed. Right upper extremity bra chiocephalic fistula by Dr. Meyer 02/04, Presented with fever at the dialysis unit and complain ed of not feeling well for the past 2-3 days with cough, diffuse body aches. Indicated one o f his granddaughters being sick with a mild infection which resolved. Sent to [facility] after completion of his dialysis treatment where he was felt to have pneumonia with leukocytosis and infiltrate seen on the chest x-ray. MAXIMUM TEMPERA TURE noted to be 1 or 2.5. Started on intravenous Levaquin after blood cultures were drawn. Staph aureus bacteremia. 4 out of 4 bottles, Actually left (after review of X ray from [facility]) lower lobe pneumonia, most likely bacterial: [...] W/ EGD; Surgeon: John Singleton MD; Location: [facility]; Se rvice: Gastroenterology; Laterality: N/A; Av fistula placement 05/06/2012 Procedure: AV FISTULA; Surgeon: Oskar Meyer MD; Location: [facility]; Service: Vascul ar; Laterality: Left; Left arm possible right Unlisted procedure arthroscopy shoulder rt , ligaments Knee arthroscopy 07/07/2012 Procedure: KNEE - ARTHROSCOPY; Surgeon: Favio Raza MD; Location: [facility]; S ercherie: Orthopedics; Laterality: Right; After 1530 Catheter removal 07/07/2012 Procedure: DIALYSIS CATHETER REMOVAL; Surgeon: Oskar Meyer MD; Location: [facility] [place] OCEDURE; Service: General; Laterality: Right; perm cath Dialysis fistula creation 07/07/2012 Procedure: DIALYSIS CATHETER INSERTION; Surgeon: Oskar Meyer MD; Location: [facility] PROCEDURE; Service: General; Laterality: Left; temporary dialysis catheter Av fistula repair 07/11/2012 Procedure: AV FISTULA GRAFT REPAIR/REVISION; Surgeon: Oskar Meyer MD; Location: [facility] OR; Service: Vascular; Laterality: Left; Superficialization of brachiobasilic fistula and right IJ perm cath insertion Dialysis fistula creation 07/11/2012 Procedure: DIALYSIS CATHETER INSERTION; Surgeon: Oskar Meyer MD; Location: [facility]; Service: Vascular; Laterality: Left; removed dialysis catheter from left neck and placed new on in left chest, attempted in right neck but unable to place Av fistula placement Right 02/09/2014 Procedure: AV FISTULA; Surgeon: Oskar Meyer MD; Location: [facility]; Service: Vascul ar; Laterality: [...] KIDS. CURRENTLY UNEMPLOYED, BEFOR E WORKED AT [employer] [place]. Quit METHAMPHETAMINES PER PATIENT after t he [...] mg Intravenous See Admin Instructions vitamin B hzcftxg-O-fukme acid 1 tablet Oral Daily Continuous Infusions [...] USE Clotted AVF 11/04 when hospitalized at [facility] and had tunneled catheter placed. Right upper [...] Results Component Value Date PTHINTACT 255* 04/02/2012 [id number] <12* 04/02/2012 Lab Results Component Value Date TSH 8.41* 09/11/2012 TSH 7.30* 07/06/2012 TSH 16.60* 04/03/2012 Lab Results Component Value Date URICACID 8.2 04/02/2012 Lab Results Component Value Date HGBA1C 5.8 11/10/2013 HGBA1C UNABLE TO CALCULATE 09/11/2012 HGBA1C 6.0 05/14/2012 IMAGING X-ray Chest 1 View 03/18/2014 ENRIQUE POTTER 1965 48 years XR CHEST 1 VIEW 03/18/2014 5:55 AM INDICATION: Pne marlena COMPARISON: October 27, 2013 TECHNIQUE: Chest 1 [...] ASSESSMENT & [facility] [place] [facility] HD ACCESS: [facility] PERMACATH IN USE Clotted AVF 11/04 when hospitalized at [facility] and had tunneled catheter placed. Right upper [...] Leukocytosis resolved. Afebrile. BACTEREMIA: blood cultures from [facility] positive for gram-positive cocci in 4 bottles. MSSA Started on vancomycin By ID On long-term doxycycline.?? For skin lesions 2-3 years ago TOLERATING HD WELL Discussed with Dr. Stevenson, awaiting for the last blood culture report Discussed with Dr. Zimmerman, will arrange for vancomycin 750 mg during hemodialysis 3 times a week until then 11/10/2013 at chronic hemodialysis unit in [place], I have already infor med the nurse there. Tolerating hemodialysis well Discussed with his SEAN REID MD 03/19/2014 Elsie Hsu S - 03/19/2014 9:05 AM PDTFormatting of this note might be different from the betina dasia. Progress Notes by Elsie Sharma MD at 03/19/14 09 Author: Elsie Sharma MD Service: Infectious Disease Author Type: Physician Filed: 03/19/14 0928 Date of Service: 03/19/14904 Status: Addendum Galley Hand: Elsie Sharma MD (Physician) Related Notes: Original Note by Elsie Sharma MD (Physician) filed at 03/19/14 09 [facility] Service: Infectious Disease Progress Note Hospital [...] secondary to long-term dialysis; pres ented to [facility] on 03/14 with symptoms of cough, chills, myalgias, fevers. P atient was thought to have pneumonia, possible septicemia. Cultures were drawn and he was s tarted on vancomycin and Zosyn and levofloxacin. He was then shift to [facility] for further ma mona. Recently had right arm brachial basilic fistula creation in January 2014. Blood cultures drawn at [facility] prior to transfer now showing gram-positive cocci [...] chills and fever. It was then that taylor madrid had cultures drawn, antibiotics given and shifted initially to [facility] and then subsequently here. His medication at presentation includes doxycycline-unclear if he has continued to remain o n this-was due to complete this in April as per last infectious disease note. However he has not followed up with ID since November 2012. Events Overnight: Blood culture growth from [facility] is MSSA in 4 out o f [...] mg Intravenous See Admin Instructions vitamin B mzcvobu-Y-rseja acid 1 tablet Oral Daily Continuous Infusions [...] (03/19 744) BP: (93-151)/(54-81) 135/70 mmHg (03/19 900) Heart Rate: [75-88] 80 (03/19 744) Resp: [17-20] 18 (03/19 744) SpO2: [96 %-100 %] 100 % (03/19 744) Weight: [72.5 kg (159 lb 13.3 oz)] 72.5 kg (159 lb 13.3 oz) (03/19 342) Physical Exam Vital signs have been reviewed [...] 03/19/2014 Microbiology Results Blood Culture Set 2 [[id number]] Collected: 03/17/14 1354 Order Status: Completed Updated: 03/19/14 0628 Specimen Information: Blood / Blood Specimen Description BLOOD, PERIPHERAL DRAW SPECIAL REQUESTS L HAND SPECIAL REQUESTS Result: Testing performed at [facility];[address];[place] [address] CULTURE NO GROWTH CULTURE Result: Testing performed at [facility], [address] [facility] [facility] [place] [address] Blood Culture Set 1 [[id number]] (Abnormal) Collected: 03/17/14 1351 Order Status: Completed Updated: 03/18/14 1621 Specimen Information: Blood / Blood Line Draw Specimen Description BLOOD, LINE DRAW SPECIAL REQUESTS DIAL.LINE SPECIAL REQUESTS Result: Testing performed at [facility];[address] [facility];[place] [address] GRAM STAIN GRAM-POSITIVE COCCUS (A) GRAM STAIN SEEN IN AEROBIC BOTTLE GRAM STAIN SMEAR RESULTS CALLED TO AND READ BACK BY: HANNA Martinez IN 6RP ON 03/18/14 AT 1620 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 WORK UP IN PROGRESS AT [facility] CULTURE FINDING OF ORGANISM GROWTH (A) CULTURE TIME TO DETECTION: CULTURE 0.95 DAYS CULTURE Result: Testing performed at [facility], [address] [place] [address] Rapid FLU A and B [[id number]] Collected: 03/15/142056 Negative for Influenzae Type A [...] vegetation. Fever with bacteremia: Blood cultures at [facility] are now identified as MSSA in 4 [...] Management by Dennis Velasquez RN at 03/18/14 1430 Author: Dennis Velasquez RN Service: (none) Author Type: Hospitality Housekeeper Filed: 03/18/14 1436 Date of Service: 03/18/14 1438 Status: Signed Galley Hand: Dennis Velasquez RN (Hospitality Housekeeper) Food voucher given to pt's . Explained [...] Notes by Douglas Stevenson MD at 03/18/14 2503 Author: Douglas Stevenson MD Service: (none) Author Type: Physician Filed: 03/18/14 8519 Date of Service: 03/18/14 1351 Status: Signed Galley Hand: Douglas Stevenson MD (Physician) [facility] Service: Hospitalist Progress Note Hospital Day: LOS: 3 days Consultants: Treatment Team: Consulting Physician: Kisha Tello MD Consulting Physician: Oskar Meyer MD Consulting Physician: Nakul Soria MD Admitting Provider: Paulie Mcgarry MD The first problem in assessment is the principal problem. ASSESSMENT/ PLAN 1. Staph aureus bacteremia. 4 out of 4 bottles, Actually left (after review of X ray from [facility]) lower lobe pneumonia, most likely bacterial: Most [...] . Code Status: Full Code Dictation and mail clerks supervisor or software, Stublisher, used which may contain error for similar [...] mg Intravenous See Admin Instructions vitamin B utdjijx-Q-vffsk acid 1 tablet Oral Daily Continuous Infusions [...] different from e original. Progress Notes by Curtis Victoria RPH at 03/18/14 853 Author: Curtis Victoria RPH Service: (none) Author Type: Pharmacist Filed: 03/18/142 Date of Service: 03/18/141156 Status: Signed Galley Hand: Curtis Victoria RPH (Pharmacist) Initiation of Vancomycin Pharmacy Dosing Enrique Potter 48 y.o. male 1.702 m (5' 7") 71.9 kg (158 lb 8.2 oz) Body mass index is 24.82 kg/(m^2). [place] Body Weight: Adjusted Body Weight: CREATININE Date Value Range Status 03/18/2014 5.28* 0.70 - 1.30 mg/dL Final Testing performed at [facility], [address] [place] [address] Estimated CrCl : CREATININE: 5.28 mg/dL ABNORMAL (03/18/14 0433) Estimated creatinine clearance - 15.6 mL/min Indications: empiric Dose per Protocol: Vanco dialysis protocol- 1.5g vanco load then pt will get 750mg IV in last hour of each ratna lysis. First Dose to be Given: 03/17 Pharmacist: CURTIS VICTORIA 03/18/2014 11:53 AM Nakul Lang MD - 03/18/2014 11:43 AM PDTFormatting of this note might be different from the or iginal. Progress Notes by Nakul Soria MD at 03/18/14 1143 Author: Nakul Soria MD Service: Nephrology Author Type: Physician Filed: 03/18/14 1152 Date of Service: 03/18/14 1143 Status: Signed Galley Hand: Nakul Soria MD (Physician) PCP : [facility] LOS: 3 days Enrique Potter is a 48 y.o. male followed for ESRD management Significant PMH of ESRD secondary to Biopsy-proven Diabetic nephropathy who is dialyzed Saturday and rid at [facility] dialysis unit via Left upper extremity brachio cephalic fistula DM2 Secondary hyperparathyroidism Anemia of chronic renal failure Treated with IV antibiotics for endocarditis in the past. Clotted AVF 11/04 when hospitalized at [facility] and had tunneled catheter placed. Right upper extremity brachiocephalic fistula by Dr. Meyer 02/04 Interval history: Enrique Potter feels 'good' today. Overnight events: Discharge held with the report of blood cultures from [facility] positive for g maame-positive cocci in all [...] who is dialyzed Saturday and Saturday at [place] dialysis unit using left IJ tunnel ed dialysis catheter (last HD 03/15/14). His primary compliance engineer is Dr. Timmons. Currently admitted with fever [...] Leukocytosis resolved. Afebrile. However blood cultures from [facility] positive for gram-positive cocci in 4 bottles. [...] until definitive culture results are ob tained. Enrique Potter should be on a 2 [...] I/O should be done. NAKUL SORIA MD 03/18/[address] Stevenson. Seen earlier in the day and charting completed later after rounds. Dictation software, [employer], used which may contain error for similar sounding words. Personal communication requested for any clarification. Prognosis guarded in view of multiple comorbid illnesses and ESRD Dr. Reid will assume nephrology care as of 5 pm tonight uKisha good MD - 03/18/2014 11:33 AM PDT Progress Notes by Kisha Tello MD at 03/18/14 1133 Author: Kisha Tello MD Service: (none) Author Type: Physician Filed: 03/18/14 1514 Date of Service: 03/18/14 1133 Status: Signed Galley Hand: Kisha Tello MD (Physician) [facility] Service: Infectious Disease Progress Note Hospital [...] secondary to long-term dialysis; pres ented to [facility] on 03/14 with symptoms of cough, chills, myalgias, fevers. P atient was thought to have pneumonia, possible septicemia. Cultures were drawn and he was s tarted on vancomycin and Zosyn and levofloxacin. He was then shift to [facility] for further ma nagement. Recently had right arm brachial basilic fistula creation in January 2014. Blood cultures drawn at [facility] prior to transfer now showing gram-positive cocci [...] chills and fever. It was then that taylor [facility] had cultures drawn, antibiotics given and shifted initially to [facility] and then subsequently here. His medication at [...] mg Intravenous See Admin Instructions vitamin B zyniqbs-Q-cjhtw acid 1 tablet Oral Daily Continuous Infusions [...] failure ASSESSMENT & PLAN Septicemia Fever with yxocwvyokv-bnoz-vkbaeliw cocci seen in 4 out of 4 bottles drawn at [facility] Previous history has been with MSSA and [...] have not shown any vegetation. Reports from [facility] with regard to the bacteremia pending Patient [...] Notes by Douglas Stevenson MD at 03/17/14 2067 Author: Douglas Stevenson MD Service: (none) Author Type: Physician Filed: 03/17/14 1329 Date of Service: 03/17/141326 Status: Signed Galley Hand: Douglas Stevenson MD (Physician) [facility] Service: Hospitalist Progress Note Hospital Day: LOS: 2 days Consultants: Treatment Team: Admitting Provider: Paulie Mcgarry MD The first problem in assessment is the principal problem. ASSESSMENT/ PLAN 1. Staph aureus bacteremia. 4 out of 4 bottles, right lower lobe pneumonia, most likely phyllis terial: Most likely source of bacteremia is his PermCath. We'll continue Levaquin for now. F ollow blood cultures. Discussed and consulted ID. We'll [...] . Code Status: Full Code Dictation and mail clerks supervisor or software, Stublisher, used which may contain error for similar [...] bicarbonate 1,300 mg Oral BID vitamin B xsanynq-R-yyqke acid 1 tablet Oral Daily Continuous Infusions PRN Medications acetaminophen, acetaminophen, albumin human, albuterol, albuterol, loperamide, ondansetron, ondansetron, polyethylene glycol, sevelamer, sodium chloride PROBLEM LIST Principal Problem: Pneumonia, organism unspecified Active Problems: Secondary hyperparathyroidism (of renal origin) Diabetes mellitus with ESRD (end-stage renal disease) HTN (hypertension) ESRD (end stage renal disease) on dialysis Anemia of chronic kidney failure Douglas Stevenson MD 03/17/20141:27 PM Nakul Lang MD - 11:25 AM PDT Progress Notes by Nakul Soria MD at 03/17/14 1125 Author: Nakul Soria MD Service: Nephrology Author Type: Physician Filed: 03/17/14 1134 Date of Service: 03/17/14 1125 Status: Signed Galley Hand: Nakul Soria MD (Physician) PCP : [facility] LOS: 2 days Enrique Potter is a 48 y.o. 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 Clotted AVF 11/04 when hospitalized at [facility] and had tunneled catheter placed. Right upper extremity brachiocephalic fistula by Dr. Meyer 02/04 Interval history: Enrique Potter feels 'good' today. Overnight events: No [...] who is dialyzed Saturday and Saturday at [facility] dialysis unit using left IJ tunnel ed dialysis catheter (last HD 03/15/14). His primary compliance engineer is Dr. Timmons. Currently admitted with fever [...] maturation of right upper extremity AV fistula Enrique Potter should be on a 2 [...] I/O should be done. NAKUL SORIA MD 03/17/[address] Stevenson. Seen earlier in the day and charting completed later after rounds. Dictation software, Stublisher, used which may contain error for similar sounding words. Personal communication requested for any clarification. Prognosis guarded in view of multiple comorbid illnesses and ESRD Dougals Abraham MD - 2:44 PM PDT Progress Notes by Douglas Stevenson MD at 03/16/14 3461 Author: Douglas Stevenson MD Service: (none) Author Type: Physician Filed: 03/16/14 4422 Date of Service: 03/16/14 5560 Status: Signed Galley Hand: Douglas Stevenson MD (Physician) [facility] Service: Hospitalist Progress Note Hospital Day: LOS: 1 day Consultants: Treatment Team: Consulting Physician: Nakul Soria MD Admitting Provider: Paulie Mcgarry MD The first problem in assessment is the principal problem. ASSESSMENT/ PLAN 1. Pneumonia: Most likely bacterial. Unclear which side. We'll try to get X ray report from [facility]. Continue Levaquin for now. Follow blood cultures from [facility]. Also to rule out any bacteremia as [...] . Code Status: Full Code Dictation and mail clerks supervisor or software, [employer], used which may contain error for similar [...] bicarbonate 1,300 mg Oral BID vitamin B ymcqvhe-N-uyncg acid 1 tablet Oral Daily Continuous Infusions [...] from th e original. Progress Notes by Kelley Toussaint RPH at 03/15/142210 Author: Kelley Toussaint RPH Service: (none) Author Type: Pharmacist Filed: 03/15/142210 Date of Service: 03/15/142210 Status: Signed Galley Hand: Kelley Toussaint RPH (Pharmacist) Renal Dosing Monitoring: Enrique Potter 48 y.o. male Pharmacy dosing for renal function per Dr. Mcgarry HD patient Plan per protocol: Levofloxacin 750 mg IV x1, then levofloxacin 500 mg IV Q 48H ordered for HD (indication [facility] P) Pharmacy will continue monitoring patient for appropriate dosing per renal function. 03/15/2014 10:10 PM Pharmacist: Kelley Toussaint onver quique Transaction, Provider Unknown - 03/15/2014 9:08 PM PDT Case Management by VANDANA Almaguer at 03/15/142107 Author: VANDANA Almaguer Service: (none) Author Type: Sales And Distribution Clerk Filed: 03/15/142114 Date of Service: 03/15/142107 Status: Signed Galley Hand: VANDANA Almaguer (Sales And Distribution Clerk) 03/15/142105 Discharge Planning Evaluation Admitting Diagnosis sepsis [...] Margarita to relay msg to spouse - [phone] Mental Status Oriented Power of Child And Adolescent Psychologist Yes Power of Child And Adolescent Psychologist Name Spouse Resources Financial concerns No Transportation issues No Patient/Family concerns No Prescription Plan Yes Name of Pharmacy [facility] Met with pt to discuss discharge planning, Pt is a 48 y.o., male Pt does not drive or work. He is not on home O2. He has dialysis at [facility] in [place] M/ W/F. He is not engaged in any other o/p medical services. He denies taking a blood thinner . He sees his PCP regularly. He does not see any other providers routinely. Pt has good f/u and excellent social support. No needs identified at this time. Patient's PCP is: [facility] Patient's insurance: Medicare / Medicaid / [facility] Coverage concerns: n/a Medication coverage/concerns: n/a Community resources utilized / needed: n/a Assistance in transportation: Sister or friend Identification of any specific education / training: n/a Barriers to Discharge / Alternative housing needed: n/a Anticipated DCP: Home w/ Sister or friend to transport Daniela Salomon docume nted in this encounter Plan of [...] EXTERNAL | | | | performed at [facility], [address] | | LAB | | | | [address], | | | | | | [place] [address] | | | | + + + + + + | RED CELL | 3.53 (L)Comment: Testing | 4.20 - 5.70 | EXTERNAL | | | COUNT | performed at [facility], [address] | M/uL | LAB | | | | [address], | | | | | | [place] [address] | | | | + + + + + + | Hgb | 10.8 (L)Comment: Testing | 13.2 - 17.0 | EXTERNAL | | | | performed at [facility], [address] | g/dL | LAB | | | | [address], | | | | | | [place] [address] | | | | + + + + + + | Hematocrit, | 31.6 (L)Comment: Testing | 39.0 - 50.0 % | EXTERNAL | | | POC | performed at [facility], [address] | | LAB | | | | [address], | | | | | | [place] [address] | | | | + + + + + + | MCV | 89.5Comment: Testing | 80.0 - 100.0 fl | EXTERNAL | | | | performed at [facility], [address] | | LAB | | | | [address], | | | | | | [place] [address] | | | | + + + + + + | MCH | 30.5Comment: Testing | 27.0 - 34.0 pg | EXTERNAL | | | | performed at [facility], [address] | | LAB | | | | [address], | | | | | | [place] [address] | | | | + + + + + + | MCHC | 34.0Comment: Testing | 32.0 - 35.5 | EXTERNAL | | | | performed at [facility], [address] | g/dL | LAB | | | | [address], | | | | | | [place] [address] | | | | + + + + + + | RDW-CV | 47.3Comment: Testing | 37 - 53 fl | EXTERNAL | | | | performed at [facility], [address] | | LAB | | | | [address], | | | | | | [place] [address] | | | | + + + + + + | Platelet | 167Comment: Testing | 150 - 400 K/uL | EXTERNAL | | | Count | performed at [facility], [address] | | LAB | | | Plasma | [address], | | | | | | [place] [address] | | | | + + + + + + | MPV | 8.0Comment: Testing | fl | EXTERNAL | | | | performed at [facility], [address] | | LAB | | | | [address], | | | | | | [place] [address] | | | | + + + + + + | Differentia | AUTOMATEDComment: | | EXTERNAL | | | l Type | Testing performed at | | LAB | | | | [facility], [address] | | | | | | [place] | | | | | | [address] | | | | + + + + + + | % Segmented | 62.6Comment: Testing | % | EXTERNAL | | | | performed at [facility], [address] | | LAB | | | Neutrophils | [address], | | | | | | [place] [address] | | | | + + + + + + | % | 14.8Comment: Testing | % | EXTERNAL | | | Lymphocytes | performed at [facility], [address] | | LAB | | | | [address], | | | | | | [place] [address] | | | | + + + + + + | % Monocytes | 20.2Comment: Testing | % | EXTERNAL | | | | performed at [facility], [address] | | LAB | | | | [address], | | | | | | [place] [address] | | | | + + + + + + | % | 1.7Comment: Testing | % | EXTERNAL | | | Eosinophils | performed at [facility], [address] | | LAB | | | | [address], | | | | | | [place] [address] | | | | + + + + + + | % Basophils | 0.7Comment: Testing | % | EXTERNAL | | | | performed at [facility], [address] | | LAB | | | | [address], | | | | | | [place] [address] | | | | + + + + + + | Absolute | 4.1Comment: Testing | 1.9 - 7.4 K/uL | EXTERNAL | | | Segmented | performed at [facility], [address] | | LAB | | | Neutrophils | [address], | | | | | | [place] [address] | | | | + + + + + + | Absolute | 1.0Comment: Testing | 1.0 - 3.9 K/uL | EXTERNAL | | | Lymphocytes | performed at [facility], [address] | | LAB | | | | [address], | | | | | | [place] [address] | | | | + + + + + + | Absolute | 1.3 (H)Comment: Testing | 0 - 0.8 K/uL | EXTERNAL | | | Monocytes | performed at [facility], [address] | | LAB | | | | [address], | | | | | | [place] [address] | | | | + + + + + + | Absolute | 0.1Comment: Testing | 0 - 0.5 K/uL | EXTERNAL | | | Eosinophils | performed at [facility], [address] | | LAB | | | | [address], | | | | | | [place] [address] | | | | + + + + + + | Absolute | 0.0Comment: Testing | 0 - 0.1 K/uL | EXTERNAL | | | Basophils | performed at [facility], [address] | | LAB | | | | [address], | | | | | | [place] [address] | | | | + + + [...] | | | | | [place] [address] | | | | + + + + + + | K | 3.6Comment: Testing | 3.5 - 4.9 | EXTERNAL | | | | performed at [facility], [address] | mmol/L | LAB | | | | [address], | | | | | | [place] [address] | | | | + + + + + + | Cl | 97 (L)Comment: Testing | 99 - 109 mmol/L | EXTERNAL | | | | performed at [facility], [address] | | LAB | | | | [address], | | | | | | [place] [address] | | | | + + + + + + | CO2 | 25Comment: Testing | 23 - 32 mmol/L | EXTERNAL | | | | performed at [facility], [address] | | LAB | | | | [address], | | | | | | [place] [address] | | | | + + + + + + | Anion Gap | 11Comment: Testing | 5 - 20 mmol/L | EXTERNAL | | | | performed at [facility], [address] | | LAB | | | | [address], | | | | | | [place] [address] | | | | + + + + + + | Glucose, | 91Comment: Testing | 65 - 99 mg/dL | EXTERNAL | | | Fasting | performed at [facility], [address] | | LAB | | | | [address], | | | | | | [place] [address] | | | | + + + + + + | BUN | 27 (H)Comment: Testing | 8 - 25 mg/dL | EXTERNAL | | | | performed at [facility], [address] | | LAB | | | | [address], | | | | | | [place] [address] | | | | + + + + + + | Creatinine | 4.91 (H)Comment: Testing | 0.70 - 1.30 | EXTERNAL | | | | performed at [facility], [address] | mg/dL | LAB | | | | [address], | | | | | | [place] [address] | | | | + + + + + + | BUN/Creatin | 5Comment: Testing | | EXTERNAL | | | ine Ratio | performed at [facility], [address] | | LAB | | | | [address], | | | | | | [place] [address] | | | | + + + + + + | Calcium | 8.1 (L)Comment: Testing | 8.5 - 10.2 | EXTERNAL | | | | performed at [facility], [address] | mg/dL | LAB | | | | [address], | | | | | | [place] [address] | | | | + + + [...] | | | | | [place] [address] | | | | + + + [...] EXTERNAL | | | | performed at [facility], [address] | | LAB | | | | [address], | | | | | | [place] [address] | | | | + + + + + + | RED CELL | 3.50 (L)Comment: Testing | 4.20 - 5.70 | EXTERNAL | | | COUNT | performed at [facility], [address] | M/uL | LAB | | | | [address], | | | | | | [place] [address] | | | | + + + + + + | Hgb | 10.6 (L)Comment: Testing | 13.2 - 17.0 | EXTERNAL | | | | performed at [facility], [address] | g/dL | LAB | | | | [address], | | | | | | [place] [address] | | | | + + + + + + | Hematocrit, | 31.2 (L)Comment: Testing | 39.0 - 50.0 % | EXTERNAL | | | POC | performed at [facility], [address] | | LAB | | | | [address], | | | | | | [place] [address] | | | | + + + + + + | MCV | 89.1Comment: Testing | 80.0 - 100.0 fl | EXTERNAL | | | | performed at [facility], [address] | | LAB | | | | [address], | | | | | | [place] [address] | | | | + + + + + + | MCH | 30.2Comment: Testing | 27.0 - 34.0 pg | EXTERNAL | | | | performed at [facility], [address] | | LAB | | | | [address], | | | | | | [place] [address] | | | | + + + + + + | MCHC | 33.9Comment: Testing | 32.0 - 35.5 | EXTERNAL | | | | performed at [facility], [address] | g/dL | LAB | | | | [address], | | | | | | [place] [address] | | | | + + + + + + | RDW-CV | 47.7Comment: Testing | 37 - 53 fl | EXTERNAL | | | | performed at [facility], [address] | | LAB | | | | [address], | | | | | | [place] [address] | | | | + + + + + + | Platelet | 131 (L)Comment: Testing | 150 - 400 K/uL | EXTERNAL | | | Count | performed at [facility], [address] | | LAB | | | Plasma | [address], | | | | | | [place] [address] | | | | + + + + + + | MPV | 8.6Comment: Testing | fl | EXTERNAL | | | | performed at [facility], [address] | | LAB | | | | [address], | | | | | | [place] [address] | | | | + + + + + + | Differentia | AUTOMATEDComment: | | EXTERNAL | | | l Type | Testing performed at | | LAB | | | | [facility], [address] | | | | | | [place] | | | | | | [address] | | | | + + + + + + | % Segmented | 72.3Comment: Testing | % | EXTERNAL | | | | performed at [facility], [address] | | LAB | | | Neutrophils | [address], | | | | | | [place] [address] | | | | + + + + + + | % | 11.9Comment: Testing | % | EXTERNAL | | | Lymphocytes | performed at [facility], [address] | | LAB | | | | [address], | | | | | | [place] [address] | | | | + + + + + + | % Monocytes | 14.2Comment: Testing | % | EXTERNAL | | | | performed at [facility], [address] | | LAB | | | | [address], | | | | | | [place], [place] [address] | | | | + + + + + + | % | 1.0Comment: Testing | % | EXTERNAL | | | Eosinophils | performed at [facility], [address] | | LAB | | | | [address], | | | | | | [place] [address] | | | | + + + + + + | % Basophils | 0.6Comment: Testing | % | EXTERNAL | | | | performed at [facility], [address] | | LAB | | | | [address], | | | | | | [place] [address] | | | | + + + + + + | Absolute | 6.6Comment: Testing | 1.9 - 7.4 K/uL | EXTERNAL | | | Segmented | performed at [facility], [address] | | LAB | | | Neutrophils | [address], | | | | | | [place], [place] [address] | | | | + + + + + + | Absolute | 1.1Comment: Testing | 1.0 - 3.9 K/uL | EXTERNAL | | | Lymphocytes | performed at [facility], [address] | | LAB | | | | [address], | | | | | | [place] [address] | | | | + + + + + + | Absolute | 1.3 (H)Comment: Testing | 0 - 0.8 K/uL | EXTERNAL | | | Monocytes | performed at [facility], [address] | | LAB | | | | [address], | | | | | | [place] [address] | | | | + + + + + + | Absolute | 0.1Comment: Testing | 0 - 0.5 K/uL | EXTERNAL | | | Eosinophils | performed at [facility], [address] | | LAB | | | | [address], | | | | | | [place] [address] | | | | + + + + + + | Absolute | 0.1Comment: Testing | 0 - 0.1 K/uL | EXTERNAL | | | Basophils | performed at [facility], [address] | | LAB | | | | [address], | | | | | | [place] [address] | | | | + + + [...] | | | | | [place] [address] | | | | + + + + + + | K | 3.6Comment: Testing | 3.5 - 4.9 | EXTERNAL | | | | performed at [facility], [address] | mmol/L | LAB | | | | [address], | | | | | | [place] [address] | | | | + + + + + + | Cl | 94 (L)Comment: Testing | 99 - 109 mmol/L | EXTERNAL | | | | performed at [facility], [address] | | LAB | | | | [address], | | | | | | [place] [address] | | | | + + + + + + | CO2 | 23Comment: Testing | 23 - 32 mmol/L | EXTERNAL | | | | performed at [facility], [address] | | LAB | | | [address], | | | | | | [place] [address] | | | | + + + + + + | Anion Gap | 15Comment: Testing | 5 - 20 mmol/L | EXTERNAL | | | | performed at [facility], [address] | | LAB | | | | [address], | | | | | | [place] [address] | | | | + + + + + + | Glucose, | 127 (H)Comment: Testing | 65 - 99 mg/dL | EXTERNAL | | | Fasting | performed at [facility], [address] | | LAB | | | | [address], | | | | | | [place] [address] | | | | + + + + + + | BUN | 49 (H)Comment: Testing | 8 - 25 mg/dL | EXTERNAL | | | | performed at [facility], [address] | | LAB | | | | [address], | | | | | | [place] [address] | | | | + + + + + + | Creatinine | 7.33 (H)Comment: Testing | 0.70 - 1.30 | EXTERNAL | | | | performed at [facility], [address] | mg/dL | LAB | | | | [address], | | | | | | [place] [address] | | | | + + + + + + | BUN/Creatin | 7Comment: Testing | | EXTERNAL | | | ine Ratio | performed at [facility], [address] | | LAB | | | | [address], | | | | | | [place] [address] | | | | + + + + + + | Calcium | 8.6Comment: Testing | 8.5 - 10.2 | EXTERNAL | | | | performed at [facility], [address] | mg/dL | LAB | | | | [address], | | | | | | [place] [address] | | | | + + + [...] | | | | | [place] [address] | | | | + + + [...] HAND | | | Testing performed at [facility];[address] | | | [facility];[place] [address] CULTURE | | | NO GROWTH | | | Testing performed at [facility], [address] [facility], [place], [place] | | | [address] | | + + + + +---------+ [...] Conversion - 02/06/2019 10:59 AM PDT ENRIQUE POTTER | | 1965 | | 48 [...] EXTERNAL | | | | performed at [facility], [address] | | LAB | | | | [address], | | | | | | [place] [address] | | | | + + + + + + | RED CELL | 3.28 (L)Comment: Testing | 4.20 - 5.70 | EXTERNAL | | | COUNT | performed at [facility], [address] | M/uL | LAB | | | | [address], | | | | | | [place] [address] | | | | + + + + + + | Hgb | 9.8 (L)Comment: Testing | 13.2 - 17.0 | EXTERNAL | | | | performed at [facility], [address] | g/dL | LAB | | | | [address], | | | | | | [place] [address] | | | | + + + + + + | Hematocrit, | 29.6 (L)Comment: Testing | 39.0 - 50.0 % | EXTERNAL | | | POC | performed at [facility], [address] | | LAB | | | | [address], | | | | | | [place] [address] | | | | + + + + + + | MCV | 90.2Comment: Testing | 80.0 - 100.0 fl | EXTERNAL | | | | performed at [facility], [address] | | LAB | | | | [address], | | | | | | [place] [address] | | | | + + + + + + | MCH | 29.8Comment: Testing | 27.0 - 34.0 pg | EXTERNAL | | | | performed at [facility], [address] | | LAB | | | | [address], | | | | | | [place] [address] | | | | + + + + + + | MCHC | 33.1Comment: Testing | 32.0 - 35.5 | EXTERNAL | | | | performed at [facility], [address] | g/dL | LAB | | | | [address], | | | | | | [place] [address] | | | | + + + + + + | RDW-CV | 47.3Comment: Testing | 37 - 53 fl | EXTERNAL | | | | performed at [facility], [address] | | LAB | | | | [address], | | | | | | [place] [address] | | | | + + + + + + | Platelet | 93 (L)Comment: Testing | 150 - 400 K/uL | EXTERNAL | | | Count | performed at [facility], [address] | | LAB | | | Plasma | [address], | | | | | | [place] [address] | | | | + + + + + + | MPV | 8.9Comment: Testing | fl | EXTERNAL | | | | performed at [facility], [address] | | LAB | | | | [address], | | | | | | [place] [address] | | | | + + + + + + | Differentia | MANUALComment: Testing | | EXTERNAL | | | l Type | performed at [facility], [address] | | LAB | | | | [address], | | | | | | [place] [address] | | | | + + + + + + | Segmented | 78Comment: Testing | % | EXTERNAL | | | Neutrophils | performed at [facility], [address] | | LAB | | | Manual | [address], | | | | | | [place] [address] | | | | + + + + + + | % Bands | 1Comment: Testing | % | EXTERNAL | | | | performed at [facility], [address] | | LAB | | | | [address], | | | | | | [place] [address] | | | | + + + + + + | Lymphocytes | 7Comment: Testing | % | EXTERNAL | | | Manual | performed at [facility], [address] | | LAB | | | | [address], | | | | | | [place] [address] | | | | + + + + + + | Monocytes | 14Comment: Testing | % | EXTERNAL | | | Manual | performed at [facility], [address] | | LAB | | | | [address], | | | | | | [place] [address] | | | | + + + + + + | Absolute | 7.0Comment: Testing | 1.9 - 7.4 K/uL | EXTERNAL | | | Neutrophils | performed at [facility], [address] | | LAB | | | | [place], | | | | | | [place] [address] | | | | + + + + + + | Bands | 0.1Comment: Testing | 0 - 0.2 K/uL | EXTERNAL | | | Manual | performed at [facility], [address] | | LAB | | | | [place], | | | | | | [place] [address] | | | | + + + + + + | Absolute | 0.6 (L)Comment: Testing | 1.0 - 3.9 K/uL | EXTERNAL | | | Lymphocytes | performed at [facility], [address] | | LAB | | | | [employer] [place], | | | | | | [place] [address] | | | | + + + + + + | Absolute | 1.3 (H)Comment: Testing | 0 - 0.8 K/uL | EXTERNAL | | | Monocytes | performed at [facility], [address] | | LAB | | | | [facility], | | | | | | [place] [address] | | | | + + + + + + | RBC | RBC AND PLT MORPHOLOGY | | EXTERNAL | | | Morphology | APPEAR NORMALComment: | | LAB | | | | Testing performed at | | | | | | [facility], [address] | | | | | | [place] | | | | | | [address] | | | | + + + [...] | | | | | [place] [address] | | | | + + + + + + | K | 3.5Comment: Testing | 3.5 - 4.9 | EXTERNAL | | | | performed at [facility], [address] | mmol/L | LAB | | | | [address], | | | | | | [place] [address] | | | | + + + + + + | Cl | 93 (L)Comment: Testing | 99 - 109 mmol/L | EXTERNAL | | | | performed at [facility], [address] | | LAB | | | | [address], | | | | | | [place] [address] | | | | + + + + + + | CO2 | 27Comment: Testing | 23 - 32 mmol/L | EXTERNAL | | | | performed at [facility], [address] | | LAB | | | | [address], | | | | | | [place] [address] | | | | + + + + + + | Anion Gap | 11Comment: Testing | 5 - 20 mmol/L | EXTERNAL | | | | performed at [facility], [address] | | LAB | | | | [address], | | | | | | [place] [address] | | | | + + + + + + | Glucose, | 123 (H)Comment: Testing | 65 - 99 mg/dL | EXTERNAL | | | Fasting | performed at [facility], [address] | | LAB | | | | [address], | | | | | | [place] [address] | | | | + + + + + + | BUN | 31 (H)Comment: Testing | 8 - 25 mg/dL | EXTERNAL | | | | performed at [facility], [address] | | LAB | | | | [place], | | | | | | [place] [address] | | | | + + + + + + | Creatinine | 5.28 (H)Comment: Testing | 0.70 - 1.30 | EXTERNAL | | | | performed at [facility], [address] | mg/dL | LAB | | | | [address], | | | | | | [place] [address] | | | | + + + + + + | BUN/Creatin | 6Comment: Testing | | EXTERNAL | | | ine Ratio | performed at [facility], [address] | | LAB | | | | [place], | | | | | | [place] [address] | | | | + + + + + + | Calcium | 7.8 (L)Comment: Testing | 8.5 - 10.2 | EXTERNAL | | | | performed at [facility], [address] | mg/dL | LAB | | | | bulletn.audrey [place], | | | | | | [place] [address] | | | | + + + [...] W | | | | | | [facility], | | | | | | [place] [address] | | | | + + + [...] HAND | | | Testing performed at [facility];[address] | | | [facility];[place] [address] CULTURE | | | NO GROWTH | | | Testing performed at [facility], [address] [facility], [place], [place] | | | [address] | | + + + + +---------+ [...] Martinez IN 6RP ON 03/18/14 AT 1620 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 | | | STAPHYLOCOCCUS AUREUSAbnormal | | | FINDING OF ORGANISM GROWTHAbnormal | | | TIME TO DETECTION: | | | 0.95 DAYS | | | Testing performed at [facility], | | | [address] [place] [address] Suscepibility for - | | | STAPHYLOCOCCUS [...] + +---------+ + + External Lab: CBC (03/17/2014 4:59 AM PDT) + + + + + + | Component | Value | Ref Range | Performed | Pathologist | | | | | At | Signature | + + + + + + | WBC | 9.6Comment: Testing | 3.8 - 11.0 K/uL | EXTERNAL | | | | performed at [facility], [address] | | LAB | | | | [place], | | | | | | [place] [address] | | | | + + + + + + | RED CELL | 3.57 (L)Comment: Testing | 4.20 - 5.70 | EXTERNAL | | | COUNT | performed at [facility], [address] | M/uL | LAB | | | | [address] [place], | | | | | | [place] [address] | | | | + + + + + + | Hgb | 10.6 (L)Comment: Testing | 13.2 - 17.0 | EXTERNAL | | | | performed at [facility], [address] | g/dL | LAB | | | | [address] [place], | | | | | | [place] [address] | | | | + + + + + + | Hematocrit, | 32.4 (L)Comment: Testing | 39.0 - 50.0 % | EXTERNAL | | | POC | performed at [facility], [address] | | LAB | | | | [address] [place], | | | | | | [place] [address] | | | | + + + + + + | MCV | 90.8Comment: Testing | 80.0 - 100.0 fl | EXTERNAL | | | | performed at [facility], [address] | | LAB | | | | [address], | | | | | | [place] [address] | | | | + + + + + + | MCH | 29.8Comment: Testing | 27.0 - 34.0 pg | EXTERNAL | | | | performed at [facility], [address] | | LAB | | | [address], | | | | | | [place] [address] | | | | + + + + + + | MCHC | 32.8Comment: Testing | 32.0 - 35.5 | EXTERNAL | | | | performed at [facility], [address] | g/dL | LAB | | | | [address], | | | | | | [place], [place] [address] | | | | + + + + + + | RDW-CV | 48.6Comment: Testing | 37 - 53 fl | EXTERNAL | | | | performed at [facility], [address] | | LAB | | | | [address], | | | | | | [place] [address] | | | | + + + + + + | Platelet | 73 (L)Comment: Testing | 150 - 400 K/uL | EXTERNAL | | | Count | performed at [facility], [address] | | LAB | | | Plasma | [address], | | | | | | [place] [address] | | | | + + + + + + | MPV | 9.0Comment: Testing | fl | EXTERNAL | | | | performed at [facility], [address] | | LAB | | | | [address], | | | | | | [place] [address] | | | | + + + + + + | Differentia | MANUALComment: Testing | | EXTERNAL | | | l Type | performed at [facility], [address] | | LAB | | | | [address], | | | | | | [place] [address] | | | | + + + + + + | Segmented | 69Comment: Testing | % | EXTERNAL | | | Neutrophils | performed at [facility], [address] | | LAB | | | Manual | [address], | | | | | | [place] [address] | | | | + + + + + + | % Bands | 15Comment: Testing | % | EXTERNAL | | | | performed at [facility], [address] | | LAB | | | | [address], | | | | | | [place] [address] | | | | + + + + + + | % | 1Comment: Testing | % | EXTERNAL | | | Metamyelocy | performed at [facility], [address] | | LAB | | | [address] | [address], | | | | | | [place] [address] | | | | + + + + + + | Lymphocytes | 11Comment: Testing | % | EXTERNAL | | | Manual | performed at [facility], [address] | | LAB | | | | [address], | | | | | | [place] [address] | | | | + + + + + + | Monocytes | 4Comment: Testing | % | EXTERNAL | | | Manual | performed at [facility], [address] | | LAB | | | | [address], | | | | | | [place] [address] | | | | + + + + + + | Absolute | 6.6Comment: Testing | 1.9 - 7.4 K/uL | EXTERNAL | | | Neutrophils | performed at [facility], [address] | | LAB | | | | [address], | | | | | | [place] [address] | | | | + + + + + + | Bands | 1.4 (H)Comment: Testing | 0 - 0.2 K/uL | EXTERNAL | | | Manual | performed at [facility], [address] | | LAB | | | | [address], | | | | | | [place] [address] | | | | + + + + + + | Absolute | 0.1 (H)Comment: Testing | K/uL | EXTERNAL | | | Metamyelocy | performed at [facility], [address] | | LAB | | | [address] | [address], | | | | | | [place] [address] | | | | + + + + + + | Absolute | 1.1Comment: Testing | 1.0 - 3.9 K/uL | EXTERNAL | | | Lymphocytes | performed at [facility], [address] | | LAB | | | | [address], | | | | | | [place] [address] | | | | + + + + + + | Absolute | 0.4Comment: Testing | 0 - 0.8 K/uL | EXTERNAL | | | Monocytes | performed at [facility], [address] | | LAB | | | | [facility] | | | | | | [place] [address] | | | | + + + + + + | RBC | RBC AND PLT MORPHOLOGY | | EXTERNAL | | | Morphology | APPEAR NORMALComment: | | LAB | | | | Testing performed at | | | | | | [facility], [address] [facility] | | | | | | [place] | | | | | | [address] | | | | + + + [...] | | | | | [place] [address] | | | | + + + + + + | K | 3.9Comment: Testing | 3.5 - 4.9 | EXTERNAL | | | | performed at [facility], [address] | mmol/L | LAB | | | | [place], | | | | | | [place] [address] | | | | + + + + + + | Cl | 91 (L)Comment: Testing | 99 - 109 mmol/L | EXTERNAL | | | | performed at [facility], [address] | | LAB | | | | [address], | | | | | | [place] [address] | | | | + + + + + + | CO2 | 25Comment: Testing | 23 - 32 mmol/L | EXTERNAL | | | | performed at [facility], [address] | | LAB | | | | [address], | | | | | | [place] [address] | | | | + + + + + + | Anion Gap | 15Comment: Testing | 5 - 20 mmol/L | EXTERNAL | | | | performed at [facility], [address] | | LAB | | | [address], | | | | | | [place] [address] | | | | + + + + + + | Glucose, | 108 (H)Comment: Testing | 65 - 99 mg/dL | EXTERNAL | | | Fasting | performed at [facility], [address] | | LAB | | | | [address], | | | | | | [place] [address] | | | | + + + + + + | BUN | 55 (H)Comment: Testing | 8 - 25 mg/dL | EXTERNAL | | | | performed at [facility], [address] | | LAB | | | | [address], | | | | | | [place] [address] | | | | + + + + + + | Creatinine | 8.10 (H)Comment: Testing | 0.70 - 1.30 | EXTERNAL | | | | performed at [facility], [address] | mg/dL | LAB | | | | [address] [place], | | | | | | [place] [address] | | | | + + + + + + | BUN/Creatin | 7Comment: Testing | | EXTERNAL | | | ine Ratio | performed at [facility], [address] | | LAB | | | | [place], | | | | | | [place] [address] | | | | + + + + + + | Calcium | 8.2 (L)Comment: Testing | 8.5 - 10.2 | EXTERNAL | | | | performed at [facility], [address] | mg/dL | LAB | | | | [place], | | | | | | [place] [address] | | | | + + + [...] [place], | | | | | | [place] [address] | | | | + + + [...] | | | Fingerstick | performed at [facility];[address] | | LAB | | | | [place] | | | | | | [address] | | | | + + + [...] EXTERNAL | | | | performed at [facility];[address] | | LAB | | | | [place] | | | | | | [address] | | | | + + + + + + | RED CELL | 3.62 (L)Comment: Testing | 4.20 - 5.70 | EXTERNAL | | | COUNT | performed at [facility];[address] | M/uL | LAB | | | | [address];[place] | | | | | | [address] | | | | + + + + + + | Hgb | 10.9 (L)Comment: Testing | 13.2 - 17.0 | EXTERNAL | | | | performed at [facility];[address] | g/dL | LAB | | | | [address];[place] | | | | | | [address] | | | | + + + + + + | Hematocrit, | 32.5 (L)Comment: Testing | 39.0 - 50.0 % | EXTERNAL | | | POC | performed at [facility];[address] | | LAB | | | | [address];[place] | | | | | | [address] | | | | + + + + + + | MCV | 89.9Comment: Testing | 80.0 - 100.0 fl | EXTERNAL | | | | performed at [facility];[address] | | LAB | | | | [address];[place] | | | | | | [address] | | | | + + + + + + | MCH | 30.0Comment: Testing | 27.0 - 34.0 pg | EXTERNAL | | | | performed at [facility];[address] | | LAB | | | | [address];[place] | | | | | | [address] | | | | + + + + + + | MCHC | 33.4Comment: Testing | 32.0 - 35.5 | EXTERNAL | | | | performed at [facility];[address] | g/dL | LAB | | | | [address];[place] | | | | | | [address] | | | | + + + + + + | RDW-CV | 49.4Comment: Testing | 37 - 53 fl | EXTERNAL | | | | performed at [facility];[address] | | LAB | | | | [address];[place] | | | | | | [address] | | | | + + + + + + | Platelet | 81 (L)Comment: Testing | 150 - 400 K/uL | EXTERNAL | | | Count | performed at [facility];[address] | | LAB | | | Plasma | [address];[place] | | | | | | [address] | | | | + + + + + + | MPV | 8.7Comment: Testing | fl | EXTERNAL | | | | performed at [facility];[address] | | LAB | | | | [address];[place] | | | | | | [address] | | | | + + + + + + | Differentia | MANUALComment: Testing | | EXTERNAL | | | l Type | performed at [facility];[address] | | LAB | | | | [address];[place] | | | | | | [address] | | | | + + + + + + | Segmented | 70Comment: Testing | % | EXTERNAL | | | Neutrophils | performed at [facility];[address] | | LAB | | | Manual | [address];[place] | | | | | | [address] | | | | + + + + + + | % Bands | 19Comment: Testing | % | EXTERNAL | | | | performed at [facility];[address] | | LAB | | | | [address];[place] | | | | | | [address] | | | | + + + + + + | Lymphocytes | 4Comment: Testing | % | EXTERNAL | | | Manual | performed at [facility];[address] | | LAB | | | | [address];[place] | | | | | | [address] | | | | + + + + + + | Monocytes | 7Comment: Testing | % | EXTERNAL | | | Manual | performed at [facility];[address] | | LAB | | | | [address];[place] | | | | | | [address] | | | | + + + + + + | Absolute | 8.3 (H)Comment: Testing | 1.9 - 7.4 K/uL | EXTERNAL | | | Neutrophils | performed at [facility];[address] | | LAB | | | | [address] [place] | | | | | | [address] | | | | + + + + + + | Bands | 2.3 (H)Comment: Testing | 0 - 0.2 K/uL | EXTERNAL | | | Manual | performed at [facility];[address] | | LAB | | | | [address];[place] | | | | | | [address] | | | | + + + + + + | Absolute | 0.5 (L)Comment: Testing | 1.0 - 3.9 K/uL | EXTERNAL | | | Lymphocytes | performed at [facility];[address] | | LAB | | | | [address];[place] | | | | | | [address] | | | | + + + + + + | Absolute | 0.8Comment: Testing | 0 - 0.8 K/uL | EXTERNAL | | | Monocytes | performed at [facility];[address] | | LAB | | | | [address];[place] | | | | | | [address] | | | | + + + + + + | RBC | RBC AND PLT MORPHOLOGY | | EXTERNAL | | | Morphology | APPEAR NORMALComment: | | LAB | | | | Testing performed at | | | | | | [facility];[address];[place] [address] | | | | + + + [...] EXTERNAL | | | | performed at [facility], [address] | | LAB | | | | [place], | | | | | | [place] [address] | | | | + + + [...] | | | | | [place] [address] | | | | + + + [...] | | | | | [place] [address] | | | | + + + + + + | K | 4.0Comment: Testing | 3.5 - 4.9 | EXTERNAL | | | | performed at [facility], [address] | mmol/L | LAB | | | | [address], | | | | | | [place] [address] | | | | + + + + + + | Cl | 93 (L)Comment: Testing | 99 - 109 mmol/L | EXTERNAL | | | | performed at [facility], [address] | | LAB | | | | [address], | | | | | | [place] [address] | | | | + + + + + + | CO2 | 26Comment: Testing | 23 - 32 mmol/L | EXTERNAL | | | | performed at [facility], [address] | | LAB | | | | [address], | | | | | | [place] [address] | | | | + + + + + + | Anion Gap | 14Comment: Testing | 5 - 20 mmol/L | EXTERNAL | | | | performed at [facility], [address] | | LAB | | | | [address], | | | | | | [place] [address] | | | | + + + + + + | Glucose, | 131 (H)Comment: Testing | 65 - 99 mg/dL | EXTERNAL | | | Fasting | performed at [facility], [address] | | LAB | | | | [address], | | | | | | [place] [address] | | | | + + + + + + | BUN | 33 (H)Comment: Testing | 8 - 25 mg/dL | EXTERNAL | | | | performed at [facility], [address] | | LAB | | | | [address], | | | | | | [place] [address] | | | | + + + + + + | Creatinine | 5.86 (H)Comment: Testing | 0.70 - 1.30 | EXTERNAL | | | | performed at [facility], [address] | mg/dL | LAB | | | | [address] [place], | | | | | | [place] [address] | | | | + + + + + + | BUN/Creatin | 6Comment: Testing | | EXTERNAL | | | ine Ratio | performed at [facility], [address] | | LAB | | | [address], | | | | | | [place] [address] | | | | + + + + + + | Calcium | 7.8 (L)Comment: Testing | 8.5 - 10.2 | EXTERNAL | | | | performed at [facility], [address] | mg/dL | LAB | | | | [address], | | | | | | [place] [address] | | | | + + + [...] | | | | | | at [facility], [address] | | | | | | [place], | | | | | | [place] [address] | | | | + + + [...] +---------+ + + Influenza A and B AgCHELO (03/15/2014 8:57 PM PDT) + + | Specimen | + + | | + + + + + | Narrative | Performed At | + + + | Specimen Description NASOPHARYNGEAL RESULT | EXTERNAL LAB | | Negative for Influenzae Type A | | | and Type B antigen by ICA | | | Testing performed at [facility];[address] [place] [address];[place] [address] | | + + + + +---------+ [...] | + + | ESRD on hemodialysis ([facility]) End stage renal disease | + + | Diabetes mellitus with ESRD (end-stage renal disease) ([facility]) Type II or unspecified | | type [...]
--- OUTSIDE RECORDS SUMMARY | ~2019-05-20 | XMS | Encounter Summary ---
Demographics + + + | Address | [address] | | | [place] [address] | + + + | Home Phone | | + + + | Preferred Language | Unknown | + + + | Marital Status | Unknown | + + + | Christianity Affiliation | [id number] | + + + [...] Team Providers + +------+ + | Care Occasional Caregiver Name | Role | Phone | + +------+ + PCP | Unavailable | + +------+ + Encounter Details +--------+ + + + + | Date | Type | Department | Care Team | Description | +--------+ + + + + | 10/07/ | Hospital | [facility] | Roberto Mtz, | Pain; Staphylococcus | | 2018 - | Encounter | [facility] [address] | [address] | aureus bacteremia; | | | | [address] | [place] [address] | Hypoalbuminemia; | | 10/19/ | | [place], [place] | [phone] | Hyperphosphatemia; | | 2017 | | [address] | | Hyperkalemia; | | | | [phone] | | Anasarca; Swelling | | | | | | of right upper | | | | | | extremity; | | | | | | Cellulitis of right | | | | | | upper extremity; End | | | | | | stage renal failure | | | | | | on dialysis ([facility]); | | | | | | Superior [...] 1616 Date of Service: 10/19/17933 Status: Signed Polish Compounder: Simone Roblero MD (Physician) Related Notes: Original Note by Simone Roblero MD (Physician) filed at 10/19/17 0940 [facility] Service: Hospitalist Discharge Summary Date of Admission: [...] discharged home with outpatient followup with his cloth shearer and ID. Prescriptions Prior to Admission Medication [...] hours. No results for input(s): PHART, PO2ART, CYM2KCS, Z0EZKQUY, BEART in the last 168 hours. Recent [...] 16 2017 1:33 AM Referring Provider Line: [phone] ID: [id number] Us Upper Extremity Venous Doppler [...] IV vancomycin Follow [place]: [place] [address] [facility] [address] [facility] INFECTIOUS DISEASE [address] [place] [id number] In 2 weeks Medication List START [...] These medications were sent to [facility] [facility] [place] [facility] [address] [facility] [id number] warfarin 4 MG tablet You can get [...] Management by Dashawn Jones RN at 10/19/17 3134 Author: Dashawn Jones RN Service: (none) Author Type: Registered Nurse Filed: 10/21/17 7583 Date of Service: 10/19/17 4592 Status: Signed Polish Compounder: Dashawn Jones RN (Registered Nurse) Post Discharge Note: Received email from account planner on the weekend that patient insi sted on leaving over the weekend and certain discharge services were not able to be finalize d due to the weekend. The CM on the weekend faxed the Vanco script to [facility] in [place]. I called and spoke wi rodrigo Orozco [...] provider know and they w ill either manager loan his coumadin or refer him [facility] . I gave [...] Date of Service: 10/19/17 1434 Status: Signed Polish Compounder: Sharon Chapman RN (Registered Nurse) Prim HARDIK [...] Date of Service: 10/19/17 1341 Status: Signed Polish Compounder: Nikky Ball RN (Registered Nurse) Patient discharging [...] Management by Deidre Westfall RN at 10/19/17 2666 Author: Deidre Westfall RN Service: (none) Author Type: Registered Nurse Filed: 10/19/17 7491 Date of Service: 10/19/17 1135 Status: Addendum Polish Compounder: Deidre Westfall RN (Registered Nurse) Related Notes: Original Note by Deidre Westfall RN (Registered Nurse) filed at 10/19/17 123 7 Pt ready for d/c today 1) pt Needing IV Vanco abx with his HD. Tc to [facility] [phone], per their voi ce mail, they are closed today. Called the local [facility] and they confirmed [facility] enter closed. Faxed IV vanco script to [facility] [phone] so they can f/u on Sat. Tc [...] 2) coumadin set up. Pt lives in [place], his PCP will have to make referral to [facility] coumadin clinic. PCP and coumadin clinic closed over . Per previous CM notes, pt's PC P is Dr Lofton with [facility]. [facility] ([phone]). Tc to [facility] to f/u with pt on Saturday/Saturday for INR check. Pt will take his coumadin script to his PCP Mitzi Elsie Yang MD - 10/19/2017 8:47 AM PDT Progress Notes by Elsie Lerner MD at 10/19/1772 Author: Elsie Lerner MD Service: Infectious Disease Author Type: Physician Filed: 10/19/17 1418 Date of Service: 10/19/17846 Status: Signed Polish Compounder: Elsie Lerner MD (Physician) [facility] Service: Infectious Disease Progress Note Hospital Day: [...] 10/18/171046 Date of Service: 10/18/171046 Status: Signed Polish Compounder: Zonia Clinton RPH (Pharmacist) Clinical Pharmacy Note: [...] Date of Service: 10/18/17653 Status: Attested Addendum Polish Compounder: KRISTEL Ku (Resident-Y3) Related Notes: Original Note by KRISTEL Ku (Resident-Y3) filed at 10/18/17 1 553 Cosigner: Simone Roblero MD at 10/18/172119 Attestation signed by Simone Roblero MD at 10/18/172119 I have seen and examined the patient and agree with residents note. PROGRESS NOTE Pt: Carol Potter AGE/SEX: 52 y.o. male ROOM: [facility]423- PCP: ANDRY LOFTON : 1965 PATIENT SUMMARY This is a 52-year-old male with an extensive and complex past medical history including end -stage renal disease secondary to diabetic nephropathy, diabetes mellitus type II, anemia of chronic renal failure, SVC stenosis, and hypertension who presents to the hospital with rig ht upper extremity pain and swelling. He was recently admitted to [facility] the end of July 13 for presumed [...] Note by Nicky Diaz RPH at 10/17/17 8250 Author: Nicky Diaz RPH Service: Pharmacy Author Type: Pharmacist Filed: 10/17/17 4729 Date of Service: 10/17/179 Status: Signed Polish Compounder: Nicky Diaz RPH (Pharmacist) Vancomycin Monitoring: Patient [...] Notes by Dwain Lima MD at 10/17/17 1768 Author: Dwain Lima MD Service: Infectious Disease Author Type: Physician Filed: 10/17/17 4697 Date of Service: 10/17/17 9747 Status: Signed Polish Compounder: Dwain Lima MD (Physician) [facility] Service: Infectious Diseases Progress Note Hospital Day: [...] Units Date/Time Blood culture, 1 of 2 [[id number]] Collected: 10/09/171709 Specimen: Blood from Blood Updated: 10/15/17644 Specimen Description BLOOD SPECIAL REQUESTS SITE NOT GIVEN CULTURE NO GROWTH 6 DAYS Blood culture, 2 of 2 [[id number]] Collected: 10/09/171739 Specimen: Blood from Blood Updated: [...] Date of Service: 10/17/17 104 Status: Signed Polish Compounder: Haider Bhatt RPH (Pharmacist) Vancomycin notes: Dialysis ordered MON - WED - FRI No dose of Vancomycin today. alvor son, Douglas Woodard MD - 10/17/2017 7:08 AM PDT Progress Notes by Douglas Barrow MD-R3 at 10/17/17 0708 Author: Douglas Barrow MD-R3 Service: Hospitalist Author Type: Resident-Y2 Filed: 10/17/17 9235 Date of Service: 10/17/17 0708 Status: Attested Polish Compounder: Douglas Barrow MD-R3 (Resident-Y3) Cosigner: Omer Minor [...] Carol Potter AGE/SEX: 52 y.o. 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 He was recently admitted to [facility] the end of July 13 for presumed [...] Management by Kalpana Triana RN at 10/16/17 1519 Author: Kalpana Triana RN Service: (none) Author Type: Registered Nurse Filed: 10/16/17 1517 Date of Service: 10/16/171509 Status: Signed Polish Compounder: Kalpana Triana RN (Registered Nurse) Discharge planning- Patient still ok to return home with spouse when medically ready. CM to continue to follow clinical course for needs. KALPANA TRIANA RN Case Management [phone] onver quique Transaction, Provider Unknown - 10/16/2017 12:48 PM PDT Nurse Progress Note by Praveena Cordova RN at 10/16/17 7951 Author: Praveena Cordova RN Service: (none) Author Type: Registered Nurse Filed: 10/16/17 124 Date of Service: 10/16/17 124 Status: Signed Polish Compounder: Praveena Cordova RN (Registered Nurse) Results for aPtt at 61, no change on heparin gtt at this time per protocol. alvor son, Douglas Woodard MD - 10/16/2017 6:46 AM PDT Progress Notes by Douglas Barrow MD-R3 at 10/16/17 0646 Author: DAMIÁN KuR3 Service: Hospitalist Author Type: Resident-Y2 Filed: 10/16/17 0941 Date of Service: 10/16/17645 Status: Attested Polish Compounder: DAMIÁN KuR3 (Resident-Y3) Cosigner: Omer Minor MD at 1623 Attestation signed by Omer Minor MD at 10/16/17 1623 Patient seen [...] Carol Potter AGE/SEX: 52 y.o. male ROOM: [facility]423- PCP: ANDRY LOFTON : 1965 PATIENT SUMMARY This is a 52-year-old male with an extensive and complex past medical history including end -stage renal disease secondary to diabetic nephropathy, diabetes mellitus type II, anemia of chronic renal failure, SVC stenosis, and hypertension who presents to the hospital with rig ht upper extremity pain and swelling. He was recently admitted to [facility] the end of July 13 for presumed abscess distal to the AV fistula. He returns again with worsening pain and e jay of the right upper extremity. Due to this he has missed dialysis for a week. He did hav e blood cultures drawn at his dialysis center which then grew gram-positive cocci. SUBJECTIVE Patient c/o CP overnight, photographer motion picture evaluated and pain was primarily around the [...] QTC Calculation (Bezet) 465 ms Calculated P Isabel 27 degrees Calculated R Isabel 11 degrees Calculated T Isabel 84 degrees Diagnosis Sinus rhythm with 1st [...] 10/15/171712 Date of Service: 10/15/171712 Status: Signed Polish Compounder: Brenda Goins RPH (Pharmacist) Vanco Monitoring Random [...] Date of Service: 10/15/17 1534 Status: Signed Polish Compounder: Tosha Mclain RD (Registered Dietitian) 10/15/17 1524 Subjective Timepoint Admit Pt c/o Pt triggered for LOS. Pt admitted for AV fistula infection. Pt receiving HD at time of visit. 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 He was recently admitted to [facility] the end of July 13 for presumed [...] Daily heparin 50 units/mL 17 Units/kg/hr (10/15/17 0823) PRN: acetaminophen OR acetaminophen, albumin human, albuterol, [...] Notes by Dwain Lima MD at 10/15/17 944 Author: Dwain Lima MD Service: Infectious Disease Author Type: Physician Filed: 10/16/17 1756 Date of Service: 10/15/171118 Status: Signed Polish Compounder: Dwain Lima MD (Physician) [facility] Service: Infectious Diseases Progress Note Hospital Day: [...] Daily heparin 50 units/mL 17 Units/kg/hr (10/15/17 5706) PRN Medications acetaminophen OR acetaminophen, albumin human, [...] Units Date/Time Blood culture, 1 of 2 [[id number]] Collected: 10/09/17 1710 Specimen: Blood from Blood Updated: 10/15/17 0627 Specimen Description BLOOD SPECIAL REQUESTS SITE NOT GIVEN CULTURE NO GROWTH 6 DAYS Blood culture, 2 of 2 [[id number]] Collected: 10/09/17 1740 Specimen: Blood from Blood Updated: 10/15/17 0645 Specimen Description BLOOD SPECIAL REQUESTS SITE NOT GIVEN CULTURE NO GROWTH 6 DAYS Blood Culture Set 1 [[id number]] Collected: 10/07/17 0421 Specimen: Blood from Blood Updated: 10/13/17 0738 Specimen Description BLOOD SPECIAL REQUESTS L HAND CULTURE NO GROWTH 6 DAYS Blood culture, set 2 [[id number]] Collected: 10/07/17 0447 Specimen: Blood from Blood, [...] Date of Service: 10/15/17 0709 Status: Attested Polish Compounder: DAMIÁN KuR3 (Resident-Y3) Cosigner: Khanh Rangel MD at 10/20/17 7076 Attestation signed by Khanh Rangel MD at 10/20/17 0788 I didn't supervise on this date. Note This is The progress note for 10/14/2013, I forgot to sign it yesterday. PROGRESS NOTE Pt: Carol Potter AGE/SEX: 52 y.o. male ROOM: [address] [place] [address]- PCP: ANDRY LOFTON : 1965 PATIENT SUMMARY This is a 52-year-old male with an extensive and complex past medical history including end -stage renal disease secondary to diabetic nephropathy, diabetes mellitus type II, anemia of chronic renal failure, SVC stenosis, and hypertension who presents to the hospital with rig ht upper extremity pain and swelling. He was recently admitted to [facility] the end of July 13 for presumed [...] Daily heparin 50 units/mL 15 Units/kg/hr (10/15/17 4044) PRN: acetaminophen OR acetaminophen, albumin human, albuterol, [...] 10/14/172136 Date of Service: 10/14/172132 Status: Signed Polish Compounder: Grecia Rangel RN (Registered Nurse) Random vanco [...] 10/14/172132 Date of Service: 10/14/172132 Status: Signed Polish Compounder: Chela Boyle RPH (Pharmacist) Vancomycin Monitoring Clinician [...] 10/14/171120 Date of Service: 10/14/171120 Status: Signed Polish Compounder: Reba Roldan RPH (Pharmacist) Vancomycin Monitoring Day [...] 10/14/171120 Date of Service: 10/14/171120 Status: Signed Polish Compounder: Reba Roldan RPH (Pharmacist) Vancomycin Monitoring Day [...] 1503 Date of Service: 10/14/171106 Status: Addendum Polish Compounder: Paty Bone RN (Registered Nurse) Related Notes: Original Note by Paty Bone RN (Registered Nurse) filed at 10/14/17 1108 CM attended AM rounds. Pt will d/c on coumadin when medically ready to d/c-lives in [place] on. PCP Dr. Lofton at [facility] is PCP--CM will need to verify that he will follow INR l evels prior to d/c. Pt still on heparin gtt and they will bridge to coumadin. Pt may d/c on IV antbx that will likely be given with dialysis. CM to follow. DC plan home with . Meal voucher provided to by surgical community organization director. Paty Bone onver quique Transaction, Provider Unknown - 10/14/2017 7:15 AM PDT Progress Notes by Grecia Rangel RN at 10/14/17714 Author: Grecia Rangel RN Service: (none) Author Type: Registered Nurse Filed: 10/14/17 0716 Date of Service: 10/14/17714 Status: Signed Polish Compounder: Grecia Rangel RN (Registered Nurse) Notified Dr Barrow @ 0700 12 beats of v-tach, no new orders at this time, pt asymptomati c alvor son, Douglas Woodard MD - 10/14/2017 6:56 AM PDT Progress Notes by DAMIÁN KuR3 at 10/14/17 0656 Author: KRISTEL Ku Service: Hospitalist Author Type: Resident-Y2 Filed: 10/14/17 1351 Date of Service: 10/14/17 0656 Status: Attested Addendum Polish Compounder: KRISTEL Ku (Resident-Y3) Related Notes: Original Note [...] Carol Potter AGE/SEX: 52 y.o. 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 He was recently admitted to [facility] the end of July 13 for presumed [...] Date of Service: 10/13/17 1038 Status: Signed Polish Compounder: Maude Toussaint RN (Registered Nurse) PTT 64 [...] Date of Service: 10/13/17 0708 Status: Attested Polish Compounder: DARRELL Damon (Nurse Practitioner) Cosigner: Jayy Christianson [...] Patient was seen and examined with attending Office Spec: Dr. Christianson. The patient says that he [...] Mild hyperphos Mild hypoNa Recommendations: No acute ADMINISTRATIVE ASSISTANT OFFICE MANAGER indication Next HD per submitted orders Do [...] Service: Hospitalist Author Type: Resident-Y2 Filed: 10/13/17 6645 Date of Service: 10/13/17 07 Status: Attested Polish Compounder: DAMIÁN KuR3 (Resident-Y3) Cosigner: Khanh Rangel MD [...] and swelling. He was recently admitted to [facility] the end of July 13 for presumed [...] Instructions heparin 50 units/mL 15 Units/kg/hr (10/13/17 8463) PRN: acetaminophen OR acetaminophen, albumin human, albuterol, [...] Notes by Khanh Rangel MD at 10/12/17 0798 Author: Khanh Rangel MD Service: Hospitalist Author Type: Physician Filed: 10/13/17 1500 Date of Service: 10/12/17 7281 Status: Signed Polish Compounder: Khanh Rangel MD (Physician) [facility] Service: Hospitalist Progress Note Hospital Day: LOS: [...] 423 laying flat in bed. Shyanne at [facility]. No apparent distress. Conversive and [...] 07 2017 4:43AM Re vianca Provider Line: [phone] ID: [id number] Mri Shoulder Right Without Contrast [...] contribute to rotator cuff imp ingement Low tyhkeu-gz-mbnaw ratio renders is a low sensitivity examination. [...] COMPARIS ON STUDIES: CT arm 10/07/2017 PRIMARY FREIGHT AGENT: Jimenez Garnica MD, PhD, RPVI OPERATIONS: 1. [...] Placement fluoroscopic images 018 and others PRIMARY FREIGHT AGENT: Jimenez Garnica MD, PhD, RPVI OPERATIONS: 1. [...] sterilely prepped and draped in the usual [facility] ion about the left neck. Snowboarding Instructor fluoroscopic image was obtained showing relatively unchanged position of the existing internal jugular catheter. An Amplatz wire was placed through the e xisting catheter into the inferior vena cava and the catheter was exchanged for a new 20 cm Mahurkar temporary dialysis catheter. Likely pre-existing catheter, the arterial port would not draw. Therefore, the catheter was removed and a 11 Paraguayan sheath was placed. Venogram im aging the [...] the innominate confl uence. Follow-up venogram demonstrated mosque of vigorous flow with some AP attenuation [...] the occlusion. Following i nterventions, there is mosque of flow through the left innominate vein and superior dawson a cava with some degree of residual AP attenuation at the innominate confluence. The new cat heter tip is at the cavoatrial junction. 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 Replacement of temporary left internal [...] 1. Ultrasound-guided access of the left internal medicine doctor al jugular vein. 2. Ultrasound and fluoroscopically [...] microwire advanced. Over the microw rowdy a 5-Paraguayan micro- sheath was placed. A single ultrasound [...] cava. The tract was serially dilated to 12.-Paraguayan. A 20-c m Mahurkar 12-Paraguayan temporary hemodialysis catheter was placed. The wire [...] COMPARISON ST UDIES: 10/07/2017 and 10/09/2017 PRIMARY FREIGHT AGENT: Jimenez Garnica MD, PhD, VI OPERATIONS: Limited [...] exchanged over a wire for a 6 Paraguayan 35 cm sheath which was advanced to the leve l of the subclavian occlusion. Patient was heparinized. The occlusion was crossed with an an gled glide catheter and wire. Next multiple 10 mm angioplasty balloons were used for sequent ial and repeated prolonged dilation of the 14 mm innominate and [address] ents with mosque of flow. The wire was left in place until the end of both procedures. Attention was then turned to replacement of a left internal jugular temporary dialysis karl ter to a tunneled dialysis catheter to be used until right arm swelling resolved for right a rm fistula use. A site was selected on the upper chest for subcutaneous tunnel creation. [facility] n was locally anesthetized with 1% lidocaine [...] support wire and exchanged to an 816 Paraguayan peel-away sheath. The wire was exchanged t [...] and inn ominate venous stents, there is mosque of vigorous flow with no residual stenosis. [...] 1103 Date of Service: 10/12/171055 Status: Signed Polish Compounder: Jimenez Garnica MD PhD (Physician) Interventional Radiology Progress Note Patient Name: Carol Potter Date of : 1965 Consulting Provider: Jimenez Garnica MD, PhD Interval History/Subjective: Carol Potter is a 52 y.o. male. Feeling better this am with resolution of arm pain and decre asing swelling of his right arm s/p right subclavian/innominate recanalization. Per environmental engineering technician, left IJ tunneled dialysis catheter is functioning [...] 07 2017 4:43AM Re vianca Provider Line: [phone] ID: [id number] X-ray Chest 1 View Result [...] contribute to rotator cuff imp ingement Low kdvemz-ve-dlzao ratio renders is a low sensitivity examination. [...] COMPARIS ON STUDIES: CT arm 10/07/2017 PRIMARY FREIGHT AGENT: Jimenez Garnica MD, PhD, RPVI OPERATIONS: 1. [...] Placement fluoroscopic images 018 and others PRIMARY FREIGHT AGENT: Jimenez Garnica MD, PhD, RPVI OPERATIONS: 1. [...] sterilely prepped and draped in the usual [facility] ion about the left neck. Snowboarding Instructor fluoroscopic image was obtained showing relatively unchanged position of the existing internal jugular catheter. An Amplatz wire was placed through the e xisting catheter into the inferior vena cava and the catheter was exchanged for a new 20 cm Mahurkar temporary dialysis catheter. Likely pre-existing catheter, the arterial port would not draw. Therefore, the catheter was removed and a 11 Paraguayan sheath was placed. Venogram im aging the [...] the innominate confl uence. Follow-up venogram demonstrated mosque of vigorous flow with some AP attenuation [...] the occlusion. Following i nterventions, there is mosque of flow through the left innominate vein and superior dawson a cava with some degree of residual AP attenuation at the innominate confluence. The new cat heter tip is at the cavoatrial junction. 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 Replacement of temporary left internal [...] 1. Ultrasound-guided access of the left internal medicine doctor al jugular vein. 2. Ultrasound and fluoroscopically [...] Under real-time ultrasound guidance, using micropuncture techn [employer], the left internal jugular vein was accessed and a microwire advanced. Over the microw rowdy a 5-Paraguayan micro- sheath was placed. A single ultrasound [...] cava. The tract was serially dilated to 12.-Paraguayan. A 20-c m Dentonkar 12-Paraguayan temporary hemodialysis catheter was placed. The wire [...] COMPARISON ST UDIES: 10/07/2017 and 10/09/2017 PRIMARY FREIGHT AGENT: Jimenez Garnica MD, PhD, RPVI OPERATIONS: Limited [...] exchanged over a wire for a 6 Paraguayan 35 cm sheath which was advanced to the leve l of the subclavian occlusion. Patient was heparinized. The occlusion was crossed with an an gled glide catheter and wire. Next multiple 10 mm angioplasty balloons were used for sequent ial and repeated prolonged dilation of the 14 mm innominate and [address] ents with mosque of flow. The wire was left in place until the end of both procedures. Attention was then turned to replacement of a left internal jugular temporary dialysis karl ter to a tunneled dialysis catheter to be used until right arm swelling resolved for right a rm fistula use. A site was selected on the upper chest for subcutaneous tunnel creation. [facility] n was locally anesthetized with 1% lidocaine [...] support wire and exchanged to an 816 Paraguayan peel-away sheath. The wire was exchanged t [...] and inn ominate venous stents, there is mosque of vigorous flow with no residual stenosis. [...] 10/12/17956 Date of Service: 10/12/17956 Status: Signed Polish Compounder: Ambika Hanson RPH (Pharmacist) Patient is current ly having HD. RN was able to obtain a stat Vancomycin level at 0917 ([facility] HD session)=24.1 The level is elevated therefore I will not give a dose of Vancomycin today. A Vancomycin l evel should be obtained with the next dialysis session. Please contact pharmacy so that thi s level can be ordered at the correct time. Plan has been discussed with RN. onver quique Transaction, Provider Unknown - 10/11/2017 4:07 PM PDT Progress Notes by Mayr Feldman RN at 10/11/17 160 Author: Mary Feldman RN Service: Nephrology Author Type: Registered Nurse Filed: 10/11/17 1608 Date of Service: 10/11/17 160 Status: Signed Polish Compounder: Mary Feldman RN (Registered Nurse) Called by [...] Management by Kalpana Triana RN at 10/11/17 7308 Author: Kalpana Triana RN Service: (none) Author Type: Registered Nurse Filed: 10/11/17 0838 Date of Service: 10/11/171451 Status: Signed Polish Compounder: Kalpana Triana RN (Registered Nurse) Discharge planning- Patient will most likely discharge back home with spouse when medically ready. His spouse with transport. She has been staying with him in the room and receives on e meal voucher per day. Unknown discharge date at this time. KALPANA TRIANA RN Case Management [phone] onver quique Transaction, Provider Unknown - 10/11/2017 1:45 PM PDT Pharmacy Note by Trinidad Coon RPH at 10/11/17 1345 Author: Trinidad Coon RPH Service: Pharmacy Author Type: Pharmacist Filed: 10/11/17 1345 Date of Service: 10/11/17 134 Status: Signed Polish Compounder: Trinidad Coon RPH (Pharmacist) Vancomycin monitoring. Pt [...] 1616 Date of Service: 10/11/1758 Status: Attested Polish Compounder: DAMIÁN [email or web address] (Resident-Y3) Cosigner: Khanh Rangel MD [...] and swelling. He was recently admitted to [facility] the end of July 13 for presumed [...] Notes by Dwain Lima MD at 10/10/17 211 Author: Dwain Lima MD Service: Infectious Disease Author Type: Physician Filed: 10/10/171925 Date of Service: 10/10/171922 Status: Signed Polish Compounder: Dwain Lima MD (Physician) [facility] Service: Infectious Diseases Progress Note Hospital Day: LOS: 3 days Post-Op Day: * No surgery found * CC: Follow-up of MRSA bacteremia SUBJECTIVE/OVERNIGHT EVENTS Patient continues to report right upper extremity pain, swelling. He reports no clinical improvement. He has been scheduled for an AV fistulogram and possible intervention for his thrombosis to [place]. Remains afebrile, without leukocytosis. REVIEW OF SYSTEMS [...] Value Units Date/Time Anaerobic Culture W/Gram Stain [[id number]] Collected: 10/07/17 1611 Specimen: Abscess Updated: 10/10/17 0856 Specimen Description ABSCESS GRAM STAIN 1+ GRAM STAIN WBC'S SEEN GRAM STAIN NO ORGANISMS SEEN CULTURE NO GROWTH 3 DAYS Blood culture, 2 of 2 [[id number]] Collected: 10/09/17 1740 Specimen: Blood from Blood Updated: 10/09/171945 Blood culture, 1 of 2 [[id number]] Collected: 10/09/17 1710 Specimen: Blood from Blood Updated: 10/09/171945 Blood Culture Set 1 [[id number]] Collected: 10/07/17 0421 Specimen: Blood from Blood Updated: 10/09/17613 Specimen Description BLOOD SPECIAL REQUESTS L HAND CULTURE NO GROWTH 2 DAYS Blood culture, set 2 [[id number]] Collected: 10/07/17 0447 Specimen: Blood from Blood, [...] Note by Haider Bhatt RPH at 10/10/17 1608 Author: Haider Bhatt RPH Service: Pharmacy Author Type: Pharmacist Filed: 10/10/17 1608 Date of Service: 10/10/17 1609 Status: Signed Polish Compounder: Haider Bhatt RPH (Pharmacist) Vancomycin notes: Patient receiving dialysis today. Vancomycin dose sent at approx 1600 to be administered du ring last hour of HD. Cosmo Lang MD - 10/10/2017 1:43 PM PDTFormatting of this note might be different from the or iginal. Progress Notes by Cosmo Soria MD at 10/10/17 2808 Author: Cosmo Soria MD Service: Nephrology Author Type: Physician Filed: 10/10/17 7240 Date of Service: 10/10/17 1343 Status: Signed Polish Compounder: Cosmo Soria MD (Physician) 423/423-1 LOS: 3 [...] he would be able to return to [facility] dialysis center for Saturday for dialysis. He was not clinically uremic, hyperkalemic, acido tic or uremic at that time. He however returned to emergency room at [facility] with worsening of the swell ing. He was transferred back to [facility] He was afebrile and otherwise hemodynamically stable [...] is dialyzed Saturday an d Saturday at [place] dialysis unit using right UE AVF (Dr. [...] he had a complicated st ay [place] [facility] including development of pericardial effusion s/p attempt [...] Place tunneled CVC once bacteremia has resolved. Pattern Designer evaluation for low K diet. I discussed [...] was completed later after rounds. Dictation software, [employer], was used which may contain error for [...] 10/10/17949 Date of Service: 10/10/17923 Status: Addendum Polish Compounder: Eliseo Cat PA-C (Physician Survey Workers Supervisor - Certified) Related Notes: Original Note by Eliseo Cat PA-C (Physician Survey Workers Supervisor - Certified) fi led at 10/10/17939 Interventional [...] 07 2017 4:43AM Re vianca Provider Line: [phone] ID: [id number] X-ray Chest 1 View Result Date: 10/07/2017 This is a non-reportable procedure without a radiologist report and is used for image [facility] [employer] only Mri Shoulder Right Without Contrast Result [...] contribute to rotator cuff imp ingement Low traqmk-lp-iwwaa ratio renders is a low sensitivity examination. [...] COMPARIS ON STUDIES: CT arm 10/07/2017 PRIMARY FREIGHT AGENT: Jimenez Garnica MD, PhD, RPVI OPERATIONS: 1. [...] Placement fluoroscopic images 018 and others PRIMARY FREIGHT AGENT: Jimenez Garnica MD, PhD, [facility] OPERATIONS: 1. Replacement of temporary left [...] sterilely prepped and draped in the usual [facility] ion about the left neck. Snowboarding Instructor fluoroscopic image was obtained showing relatively unchanged position of the existing internal jugular catheter. An Amplatz wire was placed through the e xisting catheter into the inferior vena cava and the catheter was exchanged for a new 20 cm Mahurkar temporary dialysis catheter. Likely pre-existing catheter, the arterial port would not draw. Therefore, the catheter was removed and a 11 Paraguayan sheath was placed. Venogram im aging the [...] the innominate confl uence. Follow-up venogram demonstrated mosque of vigorous flow with some AP attenuation [...] the occlusion. Following i nterventions, there is mosque of flow through the left innominate vein and superior dawson a cava with some degree of residual AP attenuation at the innominate confluence. The new cat heter tip is at the cavoatrial junction. 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 Replacement of temporary left internal [...] 1. Ultrasound-guided access of the left internal medicine doctor al jugular vein. 2. Ultrasound and fluoroscopically [...] microwire advanced. Over the microw rowdy a 5-Paraguayan micro- sheath was placed. A single ultrasound [...] cava. The tract was serially dilated to 12.-Paraguayan. A 20-c m Mahurkar 12-Paraguayan temporary hemodialysis catheter was placed. The wire [...] 1236 Date of Service: 10/10/17642 Status: Attested Polish Compounder: DAMIÁN KuR3 (Resident-Y3) Cosigner: Khanh Rangel MD [...] syndrome. I shared my concern with Dr. Sroia as well. Left IJ hemodialysis catheter. Left [...] and swelling. He was recently admitted to [facility] the end of July 13 for presumed [...] Instructions heparin 50 units/mL 15 Units/kg/hr (10/10/17 0810) PRN: acetaminophen OR acetaminophen, albumin human, albuterol, [...] 173 Date of Service: 10/09/171722 Status: Signed Polish Compounder: Dwain Lima MD (Physician) [facility] Service: Infectious Diseases Progress Note Hospital Day: [...] Value Units Date/Time Anaerobic Culture W/Gram Stain [[id number]] Collected: 10/07/17 1611 Specimen: Abscess Updated: 10/09/17 1022 Specimen Description ABSCESS GRAM STAIN 1+ GRAM STAIN WBC'S SEEN GRAM STAIN NO ORGANISMS SEEN CULTURE NO GROWTH 2 DAYS Blood Culture Set 1 [[id number]] Collected: 10/07/17 0421 Specimen: Blood from Blood Updated: 10/09/17613 Specimen Description BLOOD SPECIAL REQUESTS L HAND CULTURE NO GROWTH 2 DAYS Blood culture, set 2 [[id number]] Collected: 10/07/17 0447 Specimen: Blood from Blood, peripheral draw Updated: 10/09/17613 Specimen Description BLOOD, PERIPHERAL DRAW SPECIAL REQUESTS LWRIST CULTURE NO GROWTH 2 DAYS MRSA by PCR [[id number]] (Abnormal) Collected: 10/07/17 0650 Specimen: Nasopharyngeal from [...] Service: Nephrology Author Type: Physician Filed: 10/10/17 7153 Date of Service: 10/09/17 170 Status: Addendum Polish Compounder: Cosmo Soria MD (Physician) Related Notes: Original Note by Cosmo Soria MD (Physician) filed at 10/10/17 0649 423/423-1 LOS: 2 days Carol Potter is a 52 y.o. man whose PCP is Dr. ANDRY LOFTON. He is known to have ESRD as per [facility]. He is known to me from [...] he would be able to return to [facility] dialysis center for Saturday for dialysis. He was not clinically uremic, hyperkalemic, acido tic or uremic at that time. He however returned to emergency room at [facility] with worsening of the swell ing. He was transferred back to [facility] He was afebrile and otherwise hemodynamically stable [...] is dialyzed Saturday an d Saturday at [place] dialysis unit using right UE AVF (Dr. [...] he had a complicated st ay at [facility] including development of pericardial effusion s/p attempt at angioplasty for cent ral venous stenosis (done for poorly functioning right UE AVF). He had a pericardial drain p pa in which was removed prior to discharged. [...] Place tunneled CVC once bacteremia has resolved. Pattern Designer evaluation for low K diet. Continue vancomycin [...] was completed later after rounds. Dictation software, [employer], was used which may contain error for [...] 10/09/171415 Date of Service: 10/09/171415 Status: Signed Polish Compounder: Yasmin Jordan RPH (Pharmacist) Vanco 750mg IVPB sent for admin after HD today Pharmacist; YASMIN JORDAN 10/09/2017 2:16 PM onver quique Transaction, Provider Unknown - 10/09/2017 1:11 PM PDT Case Management by Kalpana Triana RN at 10/09/17 1311 Author: Kalpana Triana RN Service: (none) Author Type: Registered Nurse Filed: 10/09/17 1314 Date of Service: 10/09/17 1311 Status: Signed Polish Compounder: Kalpana Triana RN (Registered Nurse) CM received call from patient's Seafood Packer from [facility] ([phone]). She st ated that she is available to help with any discharge needs. KALPANA TRIANA RN Case Management [phone] alvor son, Douglas Woodard MD - 10/09/2017 7:24 AM PDT Progress Notes by DAMIÁN KuR3 at 10/09/17 0724 Author: DAMIÁN KuR3 Service: Hospitalist Author Type: Resident-Y2 Filed: 10/09/17 1652 Date of Service: 10/09/17723 Status: Attested Polish Compounder: DAMIÁN [email or web address] (Resident-Y3) Cosigner: Khanh Rangel MD at 10/10/17 1503 Attestation signed by Khanh Rangel MD at 10/10/17 1503 Encountered and examined patient in room 423 with caring at bedside. [facility] I agree with Dr. Barrow's [...] and swelling. He was recently admitted to [facility] the end of July 13 for presumed [...] not heard back from to be a [place] dialysis center regarding the c christian - [...] 10/09/17632 Date of Service: 10/09/17629 Status: Signed Polish Compounder: Steve Haile RN (Registered Nurse) Patient BG is 88 this am. VO to give D50 per Dr. Wheeler but to give slow as patient has poor venous access. Patient only has 24g in wrist/forearm area. Also given 1xorder for morphine PRN as no IV pain medications ordered and patient NPO. Evangelina Haile RN 10/09/17 6:33 AM Eliseo Mittal PA-C - 10/08/2017 10:16 PM PDT Progress Notes by Eliseo Cat PA-C at 10/08/172215 Author: Eliseo Cat PA-C Service: Interventional Radiology Author Type: Physician Vance ssistant - Certified Filed: 10/08/172229 Date of Service: 10/08/172215 Status: Signed Polish Compounder: Eliseo Cat PA-C (Physician Survey Workers Supervisor - Certified) Interventional Radiology Progress Note Patient [...] 07 2017 4:43AM Re vianca Provider Line: [phone] ID: [id number] X-ray Chest 1 View Result Date: 10/07/2017 This is a non-reportable procedure without a radiologist report and is used for image [facility] [employer] only Mri Shoulder Right Without Contrast Result [...] contribute to rotator cuff imp ingement Low vinlyq-vy-jcgfe ratio renders is a low sensitivity examination. [...] COMPARIS ON STUDIES: CT arm 10/07/2017 PRIMARY FREIGHT AGENT: Jimenez Garnica MD, PhD, RPVI OPERATIONS: 1. [...] to aspirate approximately 25 cc of dark loere k fluid which was sent for culture. [...] 1. Ultrasound-guided access of the left internal medicine doctor al jugular vein. 2. Ultrasound and fluoroscopically [...] microwire advanced. Over the microw rowdy a 5-Paraguayan micro- sheath was placed. A single ultrasound [...] cava. The tract was serially dilated to 12.-Paraguayan. A 20-c m Mahurkar 12-Paraguayan temporary hemodialysis catheter was placed. The wire [...] Notes by Dwain Lima MD at 10/08/17 4492 Author: Dwain Lima MD Service: Infectious Disease Author Type: Physician Filed: 10/09/17 4433 Date of Service: 10/08/17 8115 Status: Signed Polish Compounder: Dwain Lima MD (Physician) [facility] Service: Infectious Diseases Progress Note Hospital Day: [...] Value Units Date/Time Anaerobic Culture W/Gram Stain [[id number]] Collected: 10/07/17 1611 Specimen: Abscess Updated: 10/07/17 2232 Specimen Description ABSCESS GRAM STAIN 1+ GRAM STAIN WBC'S SEEN GRAM STAIN NO ORGANISMS SEEN CULTURE PENDING MRSA by PCR [[id number]] (Abnormal) Collected: 10/07/17 0650 Specimen: Nasopharyngeal from Nares(Nose) Updated: 10/07/17 0818 SOURCE NARES(NOSE) MRSA PCR POSITIVE for MRSA by PCR (A) Blood Culture Set 1 [[id number]] Collected: 10/07/17 0421 Specimen: Blood from Blood Updated: 10/07/1756 Blood culture, set 2 [[id number]] Collected: 10/07/17 0447 Specimen: Blood from Blood, [...] bacteremia. Will obtain results from [facility] , they repeat cultures here are [...] Dwain Cervantes MD, MPH Infectious Diseases 10/08/2017 Comso Lang MD - 10/08/2017 1:56 PM PDTFormatting of this note might be different from the betina dasia. Progress Notes by Cosmo Soria MD at 10/08/17 8357 Author: Cosmo Soria MD Service: Nephrology Author Type: Physician Filed: 10/10/17 1342 Date of Service: 10/08/17 1359 Status: Addendum Polish Compounder: Cosmo Soria MD (Physician) Related Notes: Original [...] he would be able to return to [facility] dialysis center for Saturday for dialysis. He was not clinically uremic, hyperkalemic, acido tic or uremic at that time. He however returned to emergency room at [facility] with worsening of the swell ing. He was transferred back to [facility] He was afebrile and otherwise hemodynamically stable [...] is dialyzed Saturday an d Saturday at [place] dialysis unit using right UE AVF (Dr. [...] he had a complicated st ay at [facility] including development of pericardial effusion s/p attempt [...] with Dr. Garnica and subsequen t dialysis. Pattern Designer evaluation for low K diet. Continue vancomycin [...] was completed later after rounds. Dictation software, [employer], was used which may contain error for [...] Notes by Douglas Barrow MD-R3 at 10/08/17 0687 Author: DAMIÁN KuR3 Service: Hospitalist Author Type: Resident-Y2 Filed: 10/08/17 9796 Date of Service: 10/08/17654 Status: Attested Addendum Polish Compounder: Douglas Barrow MD-R3 (Resident-Y3) Related Notes: Original [...] Fuller Tariq AGE/SEX: 52 y.o. male ROOM: 423/[facility] PCP: ANDRY LOFTON : 1965 PATIENT SUMMARY This is a 52-year-old male with an extensive and complex past medical history including end -stage renal disease secondary to diabetic nephropathy, diabetes mellitus type II, anemia of chronic renal failure, SVC stenosis, and hypertension who presents to the hospital with rig ht upper extremity pain and swelling. He was recently admitted to [facility] the end of July 13 for presumed [...] QTC Calculation (Bezet) 474 ms Calculated P Isabel 49 degrees Calculated R Isabel 28 degrees Calculated T Isabel 80 degrees Diagnosis Normal sinus rhythm Low [...] at the time. *Addendum, attempted to contact [facility] ([phone]) to obtain culture results, however was unable [...] [facility] and the patient has received dialysis [...] Date of Service: 10/07/17 1527 Status: Signed Polish Compounder: Mihir Yo RN (Registered Nurse) 10/07/17 1525 Discharge Planning Evaluation Admitting Diagnosis AV Fistula Abscess Readmission No Living Arrangements Spouse/significant other Support Systems Spouse/significant other Type of Residence Private residence House type House-1 story Steps to enter 2 Bathrooms on 1st Floor 1-Full Independent with ADL's Yes Independent with Mobility Other (comment) (uses brokerage transportation services in [place]) Home Care Services No Caregiver after Discharge No Mental Status Oriented Prior functional status modified independent Anticipated Discharge Plan Post Acute Care Needs (TBD) Resources Financial concerns No Transportation issues No Prescription Plan Yes Name of Pharmacy [facility], [facility] after hours Anticipated Disposition Facility Type Home Medicare Important Message (ELEAZAR) Not applicable Met with pt and discussed discharge planning, Pt is a 52 y.o., male who lives with his wif e in their one level private residence. Pt attends dialysis M-- in [place] and has been known to be noncompliant and to use his fistula for unprescribed drug administration. Pt u ses the Medicaid transportation brokerage for appointments. Patient's PCP is: Andry Lofton MD, [facility] Patient's insurance: Medicare, Medicaid Coverage concerns: no Medication coverage/concerns: no Rx Bedside Delivery: YES Community resources utilized / needed: Dialysis Assistance in transportation: [facility] Transportation Identification of any specific education / training: no Barriers to Discharge / Alternative housing needed: no Anticipated DCP: home Shyanne Potter, , Klaudia, [facility] Nurse at [facility], MIHIR YO onver quique Transaction, Provider Unknown - 10/07/2017 3:17 PM PDT Case Management by Mihir Yo RN at 10/07/17 1517 Author: Mihir Yo RN Service: (none) Author Type: Registered Nurse Filed: 10/07/17 1525 Date of Service: 10/07/17 1517 Status: Addendum Polish Compounder: Mihir Yo RN (Registered Nurse) Related Notes: [...] 1:00 PM PDT Progress Notes by Brooklynn Juna RN at 10/07/17 1300 Author: Brooklynn Juan RN Service: (none) Author Type: Registered Nurse Filed: 10/07/17 1330 Date of Service: 10/07/17 1300 Status: Signed Polish Compounder: Brooklynn Juan RN (Registered Nurse) Returned patient to surgical floor report given to bedside nurse, pt maintained his airway and vital signs during the procedure. Recommended blood sugar check pt remaining pretty asad nolent will arouse when name called and when stimulated. onver quique Transaction, Provider Unknown - 10/07/2017 10:40 AM PDT Progress Notes by Brooklynn Juan RN at 10/07/17 1040 Author: Brooklynn Juan RN Service: (none) Author Type: Registered Nurse Filed: 10/07/17 1232 Date of Service: 10/07/17 1040 Status: Signed Polish Compounder: Brooklynn Juan RN (Registered Nurse) Went to [...] Date of Service: 10/07/17 1017 Status: Signed Polish Compounder: Haider Bhatt RPH (Pharmacist) Renal Dosing Monitoring: [...] 10/07/17950 Date of Service: 10/07/17950 Status: Signed Polish Compounder: Haider Bhatt RPH (Pharmacist) Vancomycin notes: Right [...] 10/07/17738 Date of Service: 10/07/17737 Status: Signed Polish Compounder: Rebeca Hadley RN (Registered Nurse) Please order [...] | | | | | performed at [facility];[address] | | | | | | [address] [facility];[place], [place] | | | | | | [address] | | | | + + + [...] | | | Basophils | performed at [facility], [address] | [address] | LAB | | | | [address], | | | | | | [place] [address] | | | | + + + [...] | | | | | [place] [address] | | | | + + + [...] EXTERNAL | | | | performed at [facility], [address] | | LAB | | | | [address], | | | | | | [place] [address] | | | | + + + [...] | | | | | | at [facility], [address] | | | | | | [facility] [address], | | | | | | [place] [address] | | | | + + + [...] | | | | | performed at [facility];[address] | | | | | | [address];[place], [place] | | | | | | [address] | | | | + + + [...] | | | | | performed at [facility];[address] | | | | | | [address];[place] | | | | | | [address] | | | | + + + [...] | | | Basophils | performed at [facility], [address] | [address] | LAB | | | | [address], | | | | | | [place] [address] | | | | + + + [...] EXTERNAL | | | | performed at [facility];[address] | | LAB | | | | [address];[place], [place] | | | | | | [address] | | | | + + + [...] EXTERNAL | | | | performed at [facility];[address] | | LAB | | | | [address];[place], [place] | | | | | | [address] | | | | + + + [...] | | | Random | performed at [facility] | | LAB | | | | [facility] [facility];[place], [place] | | | | | | [address] | | | | + + + [...] | | | | | | at [facility];[address] [place] [address] | | | | | | [address];[place] [address] | | | | + + + [...] | | | Patient | performed at [facility];[address] | | LAB | | | | [address];[place], [place] | | | | | | [address] | | | | + + + [...] | | | Patient | performed at [facility];[address] | | LAB | | | | [address];[place] | | | | | | [address] | | | | + + + [...] | | | Patient | performed at [facility];[address] | | LAB | | | | [address];[place], [place] | | | | | | [address] | | | | + + + [...] | | | Fingerstick | performed at [facility];[address] | | LAB | | | | [address];[place] | | | | | | [address] | | | | + + + [...] | | | Patient | performed at [facility];[address] | | LAB | | | [address];[place], [place] | | | | | | [address] | | | | + + + [...] | | | | | performed at [facility] | | | | | | [facility];[place], [place] | | | | | | [address] | | | | + + + [...] LAB | | | | performed at [facility], [address] | | | | | | [facility] [address], | | | | | | [place] [address] | | | | | | | [...] | | | | | [place] [address] | | | | + + + [...] EXTERNAL | | | | performed at [facility], [address] | | LAB | | | | [address], | | | | | | [place] [address] | | | | + + + [...] | | | | | [place] [address] | | | | + + + [...] | | | | | performed at [facility];[address] | | | | | | [address];[place], [place] | | | | | | [address] | | | | + + + [...] | | | Patient | performed at [facility];[address] | | LAB | | | | [address];[place] | | | | | | [address] | | | | + + + [...] | | | | | | ACUTE ID Testing | | | | | | performed at [facility];888 | | | | | | Ishaan Jeffrey;[place] | | | | | | [address] | | | | + + + [...] | | | | | | IN [facility] AT 0605 BY | | | | | | TDTesting performed at | | | | | | [facility];[address] | | | | | | [facility];[place] [address] | | | | + + + [...] | | | | | performed at [facility] | | | | | | [facility];[place], [place] | | | | | | [address] | | | | + + + [...] | | | | | | ACUTE ID Testing | | | | | | performed at [facility];[address] | | | | | | [address]aan Jeffrey;[place], [place] | | | | | | [address] | | | | + + + [...] | | LAB | | | | [facility];[address] | | | | [address];[place] [address] | | | | + + + [...] EXTERNAL | | | | performed at [facility];888 | | LAB | | | | Ishaan Jeffrey;[place] | | | | | | [address] | | | | + + + [...] LAB | | | | performed at [facility] | | | | | | Ishaan Jeffrey;[place] | | | | | | [address] | | | | + + + [...] | | | | | | at [facility];[address] [place] [address] | | | | | | [facility];[place] [address] | | | | + + + [...] 1:33AM | | | Referring Provider Line: [phone] ID: [id number] | | + + + [...] Douglas Ortiz MD on Oct 16 2017 | | 1:33AM Referring Provider Line: [phone] ID: [id number] | | | |FINDINGS: | [...] 16 2017 1:33AM Referring Provider Line: [phone] ID: [id number] | + + Troponin I [...] | | | | | | ACUTE ID Testing | | | | | | performed at [facility];[address] | | | | | | [address];[place], [place] | | | | | | [address] | | | | + + + [...] | | | Patient | performed at [facility];[address] | | LAB | | | | Ishaan Jeffrey;[place] | | | | | | [address] | | | | + + + [...] | | | Patient | performed at [facility];888 | | LAB | | | | [address];[place] | | | | | | [address] | | | | + + + [...] | | | | | performed at [facility];[address] | | | | | | [address];[place] | | | | | | [address] | | | | + + + [...] | | | Patient | performed at [facility];[address] | | LAB | | | | [address];[place], [place] | | | | | | [address] | | | | + + + [...] | | | | | performed at [facility];[address] | | | | | | [address];[place], [place] | | | | | | [address] | | | | + + + [...] | | | | | | at [facility], [address] | | | | | | [facility], | | | | | | [place] [address] | | | | | |Testing performed at [facility], [address] [facility], [place] [address] | | | | | | | [...] EXTERNAL | | | | performed at [facility], [address] | | LAB | | | | Janna Jeffrey, | | | | | | [place] [address] | | | | + + + [...] EXTERNAL | | | | performed at [facility], [address] | | LAB | | | | Janna Jeffrey, | | | | | | [place] [address] | | | | + + + [...] | | | | [facility], | | | | | | [place] [address] | | | | + + + [...] | | | Random | performed at [facility];[address] | | LAB | | | | [address];[place] | | | | | | [address] | | | | + + + [...] | | | Patient | performed at [facility];[address] | | LAB | | | | [address];[place], [place] | | | | | | [address] | | | | + + + [...] | | | Basophils | performed at [facility];[address] | K/uL | LAB | | | | [address];[place], [place] | | | | | | [address] [...] EXTERNAL | | | | performed at [facility] | | LAB | | | | Ishaan Jeffrey;[place] | | | | | | [address] | | | | + + + [...] EXTERNAL | | | | performed at [facility];8 | | LAB | | | | [facility];[place], [place] | | | | | | [address] | | | | + + + [...] | | | | | performed at [facility];[address] | | | | | | [address];[place], [place] | | | | | | [address] | | | | + + + [...] | | | | | | at [facility];[address] [place] [address] | | | | | | [facility];[place] [address] | | | | + + + [...] | | | Patient | performed at [facility];[address] | | LAB | | | | [address];[place], [place] | | | | | | [address] | | | | + + + [...] | | | Patient | performed at [facility];[address] | | LAB | | | | [address];[place], [place] | | | | | | [address] | | | | + + + [...] at | | | | | | [facility], [address] [place] [address] | | | | | | [facility], [place], [place] | | | | | | [address] | | | | + + + [...] EXTERNAL | | | | performed at [facility], [address] | | LAB | | | | Janna Jeffrey, | | | | | | [place] [address] | | | | + + + [...] EXTERNAL | | | | performed at [facility], [address] | | LAB | | | | Jnana Jeffrey, | | | | | | [place] [address] | | | | + + + [...] Jeffrey, | | | | | | [place] [address] | | | | + + + [...] | | | Patient | performed at [facility];88 | | LAB | | | | Ishaan Jeffrey;[place] | | | | | | [address] | | | | + + + [...] | | | Patient | performed at [facility];[address] | | LAB | | | | [address] [facility];[place], [place] | | | | | | [address] | | | | + + + [...] | | | | | MANAS IN [facility] AT | | | | | | 0946 BY LGJTesting | | | | | | performed at [facility] | | | | | | [address];[place], [place] | | | | | | [address] | | | | + + + [...] | | | Patient | performed at [facility];[address] | | LAB | | | | [address];[place], [place] | | | | | | [address] | | | | + + + [...] | | | Basophils | performed at [facility], [address] | K/uL | LAB | | | | Janna Jeffrey, | | | | | | [place] [address] | | | | + + + [...] EXTERNAL | | | | performed at [facility], [address] | | LAB | | | | Janna Jeffrey, | | | | | | [place] [address] | | | | + + + [...] EXTERNAL | | | | performed at [facility], [address] | | LAB | | | | Janna Jeffrey, | | | | | | [place] [address] | | | | + + + [...] Jeffrey, | | | | | | [place] [address] | | | | + + + [...] | | | Patient | performed at [facility];[address] | | LAB | | | | [address];[place] | | | | | | [address] | | | | + + + [...] at | | | | | | [facility];[address] | | | | | | [address];[place] [address] | | | | + + + [...] 10/07/2017 and 10/09/2017 | | | PRIMARY FREIGHT AGENT: Jimenez Garnica MD, PhD, RPVI OPERATIONS: | [...] wire | | | for a 6 Paraguayan 35 cm sheath which was advanced to [...] subclavian diameter stents | | | with mosque of flow. The wire was left in [...] support wire and exchanged to an 816 Paraguayan peel-away sheath. The | | | wire [...] | | innominate venous stents, there is mosque of vigorous flow with | | | [...] STUDIES: 10/07/2017 | | and 10/09/2017 PRIMARY FREIGHT AGENT: Jimenez Garnica MD, PhD, RPVI OPERATIONS:Limited | [...] exchanged over a wire for a 6 [place]ayan 35 cm sheath which was advanced to | | the level of the subclavian occlusion. Patient was heparinized. The occlusion was | | crossed with an angled glide catheter and wire. Next multiple 10 mm angioplasty balloons | | were used for sequential and repeated prolonged dilation of the 14 mm innominate and 12 | | mm subclavian diameter stents with mosque of flow. The wire was left in [...] support wire and exchanged to an 816 Paraguayan peel-away sheath. The wire was exchanged to [...] subclavian and innominate venous stents, there is mosque of vigorous flow with no | | [...] 10/07/2017 and 10/09/2017 | | | PRIMARY FREIGHT AGENT: Jimenez Garnica MD, PhD, RPVI OPERATIONS: | [...] wire | | | for a 6 Paraguayan 35 cm sheath which was advanced to [...] subclavian diameter stents | | | with mosque of flow. The wire was left in [...] support wire and exchanged to an 816 Paraguayan peel-away sheath. The | | | wire [...] | | innominate venous stents, there is mosque of vigorous flow with | | | [...] STUDIES: 10/07/2017 | | and 10/09/2017 PRIMARY FREIGHT AGENT: Jimenez Garnica MD, PhD, RPVI OPERATIONS:Limited | [...] exchanged over a wire for a 6 Paraguayan 35 cm sheath which was advanced to | | the level of the subclavian occlusion. Patient was heparinized. The occlusion was | | crossed with an angled glide catheter and wire. Next multiple 10 mm angioplasty balloons | | were used for sequential and repeated prolonged dilation of the 14 mm innominate and 12 | | mm subclavian diameter stents with mosque of flow. The wire was left in [...] support wire and exchanged to an 816 Paraguayan peel-away sheath. The wire was exchanged to [...] subclavian and innominate venous stents, there is mosque of vigorous flow with no | | [...] | | | Fingerstick | performed at [facility];[address] | | LAB | | | | Ishaan Jeffrey;[place], [place] | | | | | | [address] | | | | + + + [...] | | | Patient | performed at [facility];888 | | LAB | | | | [...] | | | Basophils | performed at [facility], [address] | K/uL | LAB | | | | Janna Jeffrey, | | | | | | [place] [address] | | | | + + + [...] EXTERNAL | | | | performed at [facility], [address] | | LAB | | | | Janna Jeffrey, | | | | | | [place] [address] | | | | + + + [...] EXTERNAL | | | | performed at [facility], [address] | | LAB | | | | Janna Jeffrey, | | | | | | [place] [address] | | | | + + + [...] | | | | | | at [facility], [address] | | | | | | Janna Jeffrey, | | | | | | [place] [address] | | | | + + + [...] at | | | | | | [facility];[address] | | | | | | [facility];[place] [address] | | | | + + + [...] | | | Fingerstick | performed at [facility];[address] | | LAB | | | | [address];[place], [place] | | | | | | [address] | | | | + + + [...] | | | Fingerstick | performed at [facility];[address] | | LAB | | | | Ishaan Jeffrey;[place] | | | | | | [address] | | | | + + + [...] | | | Patient | performed at [facility];[address] | | LAB | | | | Ishaan Jeffrey;[place] | | | | | | [address] | | | | + + + [...] | | | Fingerstick | performed at [facility];[address] | | LAB | | | | [address];[place], [place] | | | | | | [address] | | | | + + + [...] | | | | | performed at [facility];[address] | | | | | | [address] Jeffrey;[place] | | | | | | [address] | | | | + + + [...] | | | Basophils | performed at [facility], [address] | K/uL | LAB | | | | Janna Jeffrey, | | | | | | [place] [address] | | | | + + + [...] EXTERNAL | | | | performed at [facility], [address] | | LAB | | | | Janna Jeffrey, | | | | | | [place] [address] | | | | + + + [...] EXTERNAL | | | | performed at [facility], [address] | | LAB | | | | Janna Jeffrey, | | | | | | [place] [address] | | | | + + + [...] | | | | [facility], | | | | | | [place] [address] | | | | + + + [...] | | | Fingerstick | performed at [facility];[address] | | LAB | | | | Ishaan Jeffrey;[place] | | | | | | [address] | | | | + + + [...] | | | Fingerstick | performed at [facility];[address] | | LAB | | | | Ishaan Jeffrey;[place], [place] | | | | | | [address] | | | | + + + [...] | | | Fingerstick | performed at [facility];[address] | | LAB | | | | Ishaan Jeffrey;[place], [place] | | | | | | [address] | | | | + + + [...] | angioplasty and fibrin sheath stripping with mosque of flow. | | | Replacement of [...] 10/07/2017 and others | | | PRIMARY FREIGHT AGENT: Jimenez Garnica MD, PhD, VI OPERATIONS: | [...] | | fashion about the left neck. Snowboarding Instructor fluoroscopic image was obtained | | | [...] | | was removed and a 11 Paraguayan sheath was placed. Venogram imaging the | [...] confluence. Follow-up venogram | | | demonstrated mosque of vigorous flow with some AP attenuation | | | at the innominate confluence. The new [employer] catheter was readvanced | | | and [...] | | | Following interventions, there is mosque of flow through the left | | [...] images 10/07/2017 and others PRIMARY | | FREIGHT AGENT: Jimenez Garnica MD, PhD, [facility] OPERATIONS:1. Replacement of temporary left | [...] | usual fashion about the left neck. Snowboarding Instructor fluoroscopic image was obtained showing | | [...] was removed and a 11 | | Paraguayan sheath was placed. Venogram imaging the left [...] innominate | | confluence. Follow-up venogram demonstrated mosque of vigorous flow with some AP | [...] | | occlusion. Following interventions, there is mosque of flow through the left | | [...] and fibrin sheath stripping | | with mosque of flow. Replacement of temporary left internal [...] | | | Fingerstick | performed at [facility];[address] | | LAB | | | | Ishaan Jeffrey;[place] | | | | | | [address] | | | | + + + [...] | | | Basophils | performed at [facility], [address] | K/uL | LAB | | | | Janna Jeffrey, | | | | | | [place] [address] | | | | + + + [...] EXTERNAL | | | | performed at [facility], [address] | | LAB | | | | Janna Jeffrey, | | | | | | [place] [address] | | | | + + + [...] EXTERNAL | | | | performed at [facility], [address] | | LAB | | | | Janna Jeffrey, | | | | | | [place] [address] | | | | + + + [...] | | | | | | at [facility], [address] | | | | | | Janna Jeffrey, | | | | | | [place] [address] | | | | + + + [...] EXTERNAL | | | | performed at [facility];[address] | | LAB | | | | Ishaan Jeffrey;[place] | | | | | | [address] | | | | + + + [...] | | | Patient | performed at [facility];[address] | | LAB | | | | [address];[place], [place] | | | | | | [address] | | | | + + + [...] | | | | | performed at [facility];88 | | | | | | Ish[address] [facility];[place], [place] | | | | | | [address] | | | | + + + [...] | | | Fingerstick | performed at [facility];[address] | | LAB | | | | [address];[place] | | | | | | [address] | | | | + + + [...] rotator cuff | | | impingement Low egagwn-qc-ixacl ratio renders is a low sensitivity | [...] to rotator cuff impingement Low | | lbjnjw-vn-emhpt ratio renders is a low sensitivity examination. [...] | | | Fingerstick | performed at [facility];[address] | | LAB | | | | Ishaan Jeffrey;[place] | | | | | | [address] | | | | + + + [...] | | | Fingerstick | performed at [facility];[address] | | LAB | | | | Ishaan Jeffrey;[place] | | | | | | [address] | | | | + + + [...] | | | Fingerstick | performed at [facility];[address] | | LAB | | | | Ishaan Jeffrey;[place], [place] | | | | | | [address] | | | | + + + [...] at | | | | | | [facility], [address] [facility] | | | | | | [place], [place], [place] | | | | | | [address] | | | | + + + [...] | | | | TCL, [address] [facility] | | | | | | [place], [place], [place] | | | | | | [address] | | | | + + + [...] EXTERNAL | | | | performed at [facility], [address] | | LAB | | | | Janna Jeffrey, | | | | | | [place] [address] | | | | + + + [...] EXTERNAL | | | | performed at [facility], [address] | | LAB | | | | Janna Jeffrey, | | | | | | [place] [address] | | | | + + + [...] + + | Hemoglobin | 5.9Comment: The Welsh | 4.0 - 6.0 % | EXTERNAL [...] | | | | | performed at [facility], [address] | | | | | | Janna Smithmichelle, | | | | | | [place] [address] | | | | + + + [...] [address] | | | | | | [address] [place], | | | | | | [place] [address] | | | | + + [...] | | | Fingerstick | performed at [facility];888 | | LAB | | | | Ishaan Jeffrey;[place] | | | | | | [address] | | | | + + + [...] | | | Fingerstick | performed at [facility];[address] | | LAB | | | | [address];[place], [place] | | | | | | [address] | | | | + + + [...] | | | Fingerstick | performed at [facility];[address] | | LAB | | | | Ishaan Jeffrey;[place], [place] | | | | | | [address] | | | | + + + [...] | | | Fingerstick | performed at [facility];[address] | | LAB | | | | Ishaan Jeffrey;[place] | | | | | | [address] | | | | + + + [...] | | | Fingerstick | performed at [facility];[address] | | LAB | | | | Ishaan Jeffrey;[place], [place] | | | | | | [address] | | | | + + + [...] | | | Over the microwire a 5-Paraguayan micro- sheath was placed. A single | [...] was serially | | | dilated to 12.-Paraguayan. A 20-cm Mahurkar 12-Paraguayan temporary | | | hemodialysis catheter was [...] a microwire advanced. Over the microwire a 5-Paraguayan micro- sheath was | | placed. A [...] cava. The tract was serially dilated to 12.-Paraguayan. A | | 20-cm Mahurkar 12-Paraguayan temporary hemodialysis catheter was placed. The wire [...] CT arm 10/07/2017 PRIMARY | | | FREIGHT AGENT: Jimenez Garnica MD, PhD, RPVI OPERATIONS: 1. [...] | | without any color flow. A payworksesis needle was advanced under | | | [...] STUDIES: CT arm | | 10/07/2017 PRIMARY FREIGHT AGENT: Jimenez Garnica MD, PhD, RPVI OPERATIONS:1. Right arm | | ultrasound and fluoroscopic guided soft tissue fluid aspiration. PROCEDURE: 2 physician | | consent was obtained with myself and Dr. Colbert. Continuous cardiac monitoring was | | performed [...] | collection without any color flow. A Mediasmart needle was advanced under ultrasound | | [...] EXTERNAL | | | | performed at [facility];[address] | | LAB | | | | Ishaan Jeffrey;[place], [place] | | | | | | [address] | | | | + + + [...] | | | Random | performed at [facility];[address] | | LAB | | | | Ishaan Jeffrey;[place], [place] | | | | | | [address] | | | | + + + [...] | | | PCRAbnormal Testing performed at [facility];[address] [place] [address];[place] [address] | | + + + + +---------+ [...] Oct 07 2017 4:43AM Referring Provider Line: [phone] | | | ID: [id number] | | [...] | | 2017 4:43AM Referring Provider Line: [phone] ID: [id number] | |IMPRESSION: | | | [...] 07 2017 4:43AM Referring Provider Tg e: [id number] ID: [id number] | + -+ HISTORICAL LAB [...] | | | | | | ACUTE ID Testing | | | | | | performed at [facility];[address] | | | | | | Ishaan Jeffrey;[place], [place] | | | | | | [address] | | | | + + + [...] EXTERNAL | | | | performed at [facility] | | LAB | | | | Ishaan Jeffrey;[place] | | | | | | [address] | | | | + + + [...] EXTERNAL | | | | performed at [facility] | | LAB | | | | Ishaan Smith;[place], [place] | | | | | | [address] | | | | + + + [...]
--- OUTSIDE RECORDS SUMMARY | ~2019-05-20 | XMS | Clinical Summary ---
Demographics + + + | Address | [address] | | | [place] [address] | + + + | Home Phone | | + + + | Preferred Language | Unknown | + + + | Marital Status | | + + + | Quaker Affiliation | 1076 | + + + | Race | Unknown | + + + | Ethnic Group | Unknown | + + + Author + + + | Author | [facility] Email[facility] (Historical as of | | | 02-07-19) | + + + | Organization | [facility] Emailage (Historical as of | | | 02-07-19) | + + + | Address | [...] Providers + +------+ + | Care Metal Casket Assembler Name | Role | Phone | [...] (ZOFRAN-ODT) 8 MG | | | | 2/20 | | [...] | mouth daily. | tablet | | 3/20 | | e | | (NEPHRO-THU) 0.8 MG | | | | 17 | | | | TABS | | | | | | | | tabletIndications: | | | | | | | | ESRD (end stage | | | | | | | | renal disease) on | | | | | | | | dialysis ([facility]) | | | | | | [...] | | | | | | dialysis ([facility]) | | | | | | [...] 2 (two) times | tablet | | 1/20 | | e | | | daily with meals. | | | 18 | | | + + + +---------+------+------+-------+ | warfarin | Take 1 tablet by | 30 | 3 | 04/2 | | Activ | | (COUMADIN) 4 MG | mouth Once | tablet | | 8/20 | | e | [...] | + + + | Polysubstance abuse (HCC) | 04/28/2016 | + + + | [...] ready for discharge from the | | retirement facility next week. | + + + [...] | 2 | + + + + Immunizations + + + + | Name [...] + | Mother | | | from [place] | | | | (Age | | [...] Stent | Right: | | | | [id number] | | 40-09[birth year]11/2018Implanted: | | | | | | / | | 09/11/2016 by Jimenez Garnica, | | [employer] | | | | /[id number] | | PhD (Quantity not on | | vian | | | | 669 | | file) | | | | | | | + +-------+--------+ +--------+--------+--------+ | Konglver 14 X | Stent | Right: | | | | [id number] | | 60-09[birth year]11[birth year]2016Implanted: | | | | | | / | | 09/11/2016 by Jimenez Garnica, | | [employer] | | | | /[id number] | | PhD (Quantity not on | | vian | | | | 524 | | file) | | | | | | | + +-------+--------+ +--------+--------+--------+ | Hemodialysis Catheter 12x20 | | Left: | | | 10/05/ | [id number] | | Curved - Sn/AImplanted: Qty: | [...] | Left: | | | 02/22/ | [id number] | | [address] Half[address]Way [address] | | Neck | | | 2012 | 0 | | Hemosplit 14.5 24cm - | | | | | | /[id number] | | [id number]: Qty: 1 on | | | | [...] +------+-------+ + | MEDICARE | MEDICA | [id number] | | | [address] | | | RE | | | | [place] [address] | | | IP-OP | | | | | + +--------+ +------+-------+ + | MEDICAID | MEDICA | [id number] | | | [address] | | | ID | | | | [place] | | | [place] | | | | [address] | + +--------+ +------+-------+ + | [employer] | YELLOW | [id number] | | | | | PLANS | [...] | Self | [birth year] | Home: | [address] | | | al/Fam | | 1965 | [phone] | [place] | | | juan | | | [address] | [phone] | + +--------+ +--------+ + +
--- OUTSIDE RECORDS SUMMARY | ~2019-05-20 | XMS | Encounter Summary ---
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 | Phone | + +------+ + PCP | Unavailable | + +------+ + Encounter Details +--------+ + + + + | Date | Type | Department | Care Team | Description | +--------+ + + + + | 12/23/ | Hospital | [facility] | Conversion | ESRD (end stage | | 2014 | Encounter | [facility] | Transaction, | renal disease) (HCC) | | | | [address] | Provider Unknown | | | | | [place], [place] | [phone] | | | | | [address] | | | | | | [phone] | Juan Timmons MD | | | | | | [address] | | | | | | [place] | | | | | | [id number] | | | | | | | [...] + | IR PLACEMENT | Routin | 12/23/2013 | | Results for this | | TUNNELED CENTRAL | e | 12:05 PM | | procedure are in the | | VENOUS CATHETER > 5 | | PDT | | results section. | | YEARS | | | | | + +--------+ + + + | US GUIDED VASCULAR | Routin | 12/23/2013 | | Results for this | | ACCESS | e | 12:00 PM | | procedure are in the | | | | PDT | | results section. | + +--------+ + + + | MRSA NAAT | Timed | 12/23/2013 | | Results for this | | | | 10:38 AM | | procedure are in the | | | | PDT | | results section. | + +--------+ + + + | EXTERNAL LAB: CBC | Routin | 12/23/2013 | | Results for this | | | e | 10:37 AM | | procedure are in the | | | | PDT | | results section. | + +--------+ + + + | PTT | Routin | 12/23/2013 | | Results for this | | | e | 10:37 AM | | procedure are in the | | | | PDT | | results section. | + +--------+ + + + | PROTIME INR | Routin | 12/23/2013 | | Results for this | | | e | 10:37 AM | | procedure are in the | | | | PDT | | results section. | + +--------+ + + + | BASIC METABOLIC | Routin | 12/23/2013 | | Results for this | | PANEL | e | 10:37 AM | | procedure are in the | | | | PDT | | results section. | + +--------+ + + + documented in this encounter Results IR Placement Tunneled CV Cath (12/23/2013 12:05 PM PDT) + + | Specimen | + + | | + + + + + | Impressions | Performed At | + + + | Sonography of the jugular vessels in the neck with image | | | documentation. Sonography guided access of the [left internal] | | | jugular vein. Successful tunneled dialysis catheter placement under | | | fluoroscopy guidance. Final catheter position documentation under | | | fluoroscopy. Thanks for the referral and allowing participation in | | | the care of this patient. | | + + + + + + | Narrative | Performed At | + + + | Tunneled dialysis catheter placement: Clinical history: | | | [48-year-old male] with history of [end-stage renal disease], | | | requiring long-term dialysis access and completely discharged dialysis | | | catheter], presents for placement of a new tunneled dialysis | | | catheter. Medications: Versed 1.5 mg IV, Fentanyl [50] mcg IV. | | | Clindamycin 600 mg IV. Complications: None. Sedation time: 25 | | | minutes. Radiation: Dose of 24 mGy and fluoroscopy time of 2.7 | | | minutes. Consent: The procedure was explained to the [patient's | | | daughter] and after discussing the risks, alternatives and benefits of | | | the procedure, an informed consent was obtained. All questions | | | answered to satisfaction. Procedure and findings: Sonography of | | | the jugular vessels in the neck with image documentation. Sonography | | | guided access of the left internal jugular vein. Tunneled dialysis | | | catheter placement under fluoroscopy guidance. Dialysis catheter | | | position documentation under fluoroscopy. Findings: The right | | | internal and external jugular veins appear to be completely | | | thrombosed. The left internal jugular vein was patent. The left | | | internal jugular vein was deemed most appropriate for access. | | | Procedure: Initial sonography of the jugular vessels in the neck was | | | performed. The [left internal and external jugular] veins are patent. | | | Images were documented. The patient was placed supine on the | | | angiography table and the [left] neck was prepped and draped in the | | | usual sterile fashion. Conscious sedation was administered and the | | | vital signs including the heart rate, pulse, oxygen saturation and EKG | | | was monitored throughout the procedure for a time frame of [25] | | | minutes. Initially the skin and subcutaneous tissues of the [left] | | | neck and [left] upper chest were infiltrated with 1% lidocaine. Using | | | ultrasound guidance, the [left] internal jugular vein was accessed | | | with a micropuncture needle system using modified Seldinger | | | technique. The tip of the guidewire was introduced through the right | | | atrium into the inferior vena cava. Next a 23 cm palindrome dialysis | | | catheter was tunneled subcutaneously from the [left] infraclavicular | | | region to the [left] internal jugular vein access site. The catheter | | | was introduced into the [left] internal jugular vein through a | | | peel-away sheath and the tip was positioned at the cavoatrial junction | | | under fluoroscopy. Spot fluoroscopy images of the final catheter | | | position was obtained and documented. The catheter was aspirates | | | and flushes adequately and was infused with Hep-Lock. Dialysis | | | catheter is ready to be used at this time. The catheter was | | | secured in place using sutures. The access site in the neck was also | | | closed using Dermabond. No acute complications. | | + + + + + | Procedure Note | + + | Khalif Palm Conversion - 02/06/2019 10:59 AM PDT Tunneled dialysis catheter placement: | | Clinical history: [48-year-old male] with history of [end-stage renal disease], | | requiring long-term dialysis access and completely discharged dialysis catheter], | | presents for placement of a new tunneled dialysis catheter. Medications:Versed 1.5 mg | | IV,Fentanyl [50] mcg IV.Clindamycin 600 mg IV. Complications: None. Sedation time: 25 | | minutes. Radiation:Dose of 24 mGy and fluoroscopy time of 2.7 minutes. Consent:The | | procedure was explained to the [patient's daughter] and after discussing the risks, | | alternatives and benefits of the procedure, an informed consent was obtained. All | | questions answered to satisfaction. Procedure and findings:Sonography of the jugular | | vessels in the neck with image documentation.Sonography guided access of the left | | internal jugular vein.Tunneled dialysis catheter placement under fluoroscopy | | guidance.Dialysis catheter position documentation under fluoroscopy. Findings:The right | | internal and external jugular veins appear to be completely thrombosed. The left | | internal jugular vein was patent. The left internal jugular vein was deemed most | | appropriate for access. Procedure:Initial sonography of the jugular vessels in the neck | | was performed. The [left internal and external jugular] veins are patent. Images were | | documented. The patient was placed supine on the angiography table and the [left] neck | | was prepped and draped in the usual sterile fashion. Conscious sedation was administered | | and the vital signs including the heart rate, pulse, oxygen saturation and EKG was | | monitored throughout the procedure for a time frame of [25] minutes. Initially the skin | | and subcutaneous tissues of the [left] neck and [left] upper chest were infiltrated with | | 1% lidocaine. Using ultrasound guidance, the [left] internal jugular vein was accessed | | with a micropuncture needle system using modified Seldinger technique. The tip of the | | guidewire was introduced through the right atrium into the inferior vena cava. Next a 23 | | cm palindrome dialysis catheter was tunneled subcutaneously from the [left] | | infraclavicular region to the [left] internal jugular vein access site. The catheter was | | introduced into the [left] internal jugular vein through a peel-away sheath and the tip | | was positioned at the cavoatrial junction under fluoroscopy. Spot fluoroscopy images of | | the final catheter position was obtained and documented. The catheter was aspirates and | | flushes adequately and was infused with Hep-Lock. Dialysis catheter is ready to be used | | at this time. The catheter was secured in place using sutures. The access site in the | | neck was also closed using Dermabond. No acute complications. IMPRESSION: Sonography of | | the jugular vessels in the neck with image documentation.Sonography guided access of the | | [left internal] jugular vein.Successful tunneled dialysis catheter placement under | | fluoroscopy guidance.Final catheter position documentation under fluoroscopy. Thanks for | | the referral and allowing participation in the care of this patient. Electronically | | signed by Melvi Tate MD on 12/23/2013 12:09 PM | |access site. The catheter was introduced into the [left] internal jugular vein through a pe el-away sheath and the tip was positioned at the cavoatrial junction under fluoroscopy. Spot fluoroscopy images of the final catheter position was obtained and | |documented. | | | |The catheter was aspirates and flushes adequately and was infused with Hep-Lock. Dialysis c atheter is ready to be used at this time. | | | |The catheter was secured in place using sutures. The access site in the neck was also close d using Dermabond. | | | |No acute complications. | | | |IMPRESSION: | |Sonography of the jugular vessels in the neck with image documentation. | |Sonography guided access of the [left internal] jugular vein. | |Successful tunneled dialysis catheter placement under fluoroscopy guidance. | |Final catheter position documentation under fluoroscopy. | | | |Thanks for the referral and allowing participation in the care of this patient. | | | | | + + US Guided Vascular Access (12/23/2013 12:00 PM PDT) + + | Specimen | + + | | + + + + + | Impressions | Performed At | + + + | Sonography of the jugular vessels in the neck with image | | | documentation. Sonography guided access of the [left internal] | | | jugular vein. Successful tunneled dialysis catheter placement under | | | fluoroscopy guidance. Final catheter position documentation under | | | fluoroscopy. Thanks for the referral and allowing participation in | | | the care of this patient. | | + + + + + + | Narrative | Performed At | + + + | Tunneled dialysis catheter placement: Clinical history: | | | [48-year-old male] with history of [end-stage renal disease], | | | requiring long-term dialysis access and completely discharged dialysis | | | catheter], presents for placement of a new tunneled dialysis | | | catheter. Medications: Versed 1.5 mg IV, Fentanyl [50] mcg IV. | | | Clindamycin 600 mg IV. Complications: None. Sedation time: 25 | | | minutes. Radiation: Dose of 24 mGy and fluoroscopy time of 2.7 | | | minutes. Consent: The procedure was explained to the [patient's | | | daughter] and after discussing the risks, alternatives and benefits of | | | the procedure, an informed consent was obtained. All questions | | | answered to satisfaction. Procedure and findings: Sonography of | | | the jugular vessels in the neck with image documentation. Sonography | | | guided access of the left internal jugular vein. Tunneled dialysis | | | catheter placement under fluoroscopy guidance. Dialysis catheter | | | position documentation under fluoroscopy. Findings: The right | | | internal and external jugular veins appear to be completely | | | thrombosed. The left internal jugular vein was patent. The left | | | internal jugular vein was deemed most appropriate for access. | | | Procedure: Initial sonography of the jugular vessels in the neck was | | | performed. The [left internal and external jugular] veins are patent. | | | Images were documented. The patient was placed supine on the | | | angiography table and the [left] neck was prepped and draped in the | | | usual sterile fashion. Conscious sedation was administered and the | | | vital signs including the heart rate, pulse, oxygen saturation and EKG | | | was monitored throughout the procedure for a time frame of [25] | | | minutes. Initially the skin and subcutaneous tissues of the [left] | | | neck and [left] upper chest were infiltrated with 1% lidocaine. Using | | | ultrasound guidance, the [left] internal jugular vein was accessed | | | with a micropuncture needle system using modified Seldinger | | | technique. The tip of the guidewire was introduced through the right | | | atrium into the inferior vena cava. Next a 23 cm palindrome dialysis | | | catheter was tunneled subcutaneously from the [left] infraclavicular | | | region to the [left] internal jugular vein access site. The catheter | | | was introduced into the [left] internal jugular vein through a | | | peel-away sheath and the tip was positioned at the cavoatrial junction | | | under fluoroscopy. Spot fluoroscopy images of the final catheter | | | position was obtained and documented. The catheter was aspirates | | | and flushes adequately and was infused with Hep-Lock. Dialysis | | | catheter is ready to be used at this time. The catheter was | | | secured in place using sutures. The access site in the neck was also | | | closed using Dermabond. No acute complications. | | + + + + + | Procedure Note | + + | Néstor, Khalif Conversion - 02/06/2019 10:59 AM PDT Tunneled dialysis catheter placement: | | Clinical history: [48-year-old male] with history of [end-stage renal disease], | | requiring long-term dialysis access and completely discharged dialysis catheter], | | presents for placement of a new tunneled dialysis catheter. Medications:Versed 1.5 mg | | IV,Fentanyl [50] mcg IV.Clindamycin 600 mg IV. Complications: None. Sedation time: 25 | | minutes. Radiation:Dose of 24 mGy and fluoroscopy time of 2.7 minutes. Consent:The | | procedure was explained to the [patient's daughter] and after discussing the risks, | | alternatives and benefits of the procedure, an informed consent was obtained. All | | questions answered to satisfaction. Procedure and findings:Sonography of the jugular | | vessels in the neck with image documentation.Sonography guided access of the left | | internal jugular vein.Tunneled dialysis catheter placement under fluoroscopy | | guidance.Dialysis catheter position documentation under fluoroscopy. Findings:The right | | internal and external jugular veins appear to be completely thrombosed. The left | | internal jugular vein was patent. The left internal jugular vein was deemed most | | appropriate for access. Procedure:Initial sonography of the jugular vessels in the neck | | was performed. The [left internal and external jugular] veins are patent. Images were | | documented. The patient was placed supine on the angiography table and the [left] neck | | was prepped and draped in the usual sterile fashion. Conscious sedation was administered | | and the vital signs including the heart rate, pulse, oxygen saturation and EKG was | | monitored throughout the procedure for a time frame of [25] minutes. Initially the skin | | and subcutaneous tissues of the [left] neck and [left] upper chest were infiltrated with | | 1% lidocaine. Using ultrasound guidance, the [left] internal jugular vein was accessed | | with a micropuncture needle system using modified Seldinger technique. The tip of the | | guidewire was introduced through the right atrium into the inferior vena cava. Next a 23 | | cm palindrome dialysis catheter was tunneled subcutaneously from the [left] | | infraclavicular region to the [left] internal jugular vein access site. The catheter was | | introduced into the [left] internal jugular vein through a peel-away sheath and the tip | | was positioned at the cavoatrial junction under fluoroscopy. Spot fluoroscopy images of | | the final catheter position was obtained and documented. The catheter was aspirates and | | flushes adequately and was infused with Hep-Lock. Dialysis catheter is ready to be used | | at this time. The catheter was secured in place using sutures. The access site in the | | neck was also closed using Dermabond. No acute complications. IMPRESSION: Sonography of | | the jugular vessels in the neck with image documentation.Sonography guided access of the | | [left internal] jugular vein.Successful tunneled dialysis catheter placement under | | fluoroscopy guidance.Final catheter position documentation under fluoroscopy. Thanks for | | the referral and allowing participation in the care of this patient. Electronically | | signed by Melvi Tate MD on 12/23/2013 12:09 PM | |access site. The catheter was introduced into the [left] internal jugular vein through a pe el-away sheath and the tip was positioned at the cavoatrial junction under fluoroscopy. Spot fluoroscopy images of the final catheter position was obtained and | |documented. | | | |The catheter was aspirates and flushes adequately and was infused with Hep-Lock. Dialysis c atheter is ready to be used at this time. | | | |The catheter was secured in place using sutures. The access site in the neck was also close d using Dermabond. | | | |No acute complications. | | | |IMPRESSION: | |Sonography of the jugular vessels in the neck with image documentation. | |Sonography guided access of the [left internal] jugular vein. | |Successful tunneled dialysis catheter placement under fluoroscopy guidance. | |Final catheter position documentation under fluoroscopy. | | | |Thanks for the referral and allowing participation in the care of this patient. | | | | | + + MRSA GIL (12/23/2013 10:38 AM PDT) + + | Specimen | + + | | + + + + + | Narrative | Performed At | + + + | SOURCE NARES(NOSE) | EXTERNAL LAB | | Testing performed at [facility];[address] [place] [address];[place] [address] MRSA PCR | | | NEGATIVE Testing performed at | | | [facility];[address] [facility];[place] [address] | | + + + + +---------+ + + | Performing | Address | City/State/Zipcode | Phone Number | | Organization | | | | + +---------+ + + | EXTERNAL LAB | | | | + +---------+ + + PTT (12/23/2013 10:37 AM PDT) + + + + + + | Component | Value | Ref Range | Performed | Pathologist | | | | | At | Signature | + + + + + + | aPTT, | 28Comment: Testing | 23 - 32 seconds | EXTERNAL | | | Patient | performed at [facility];[address] | | LAB | | | [address];[place], [place] | | | | | | [address] | | | | + + + + + + + + | Specimen | + + | Blood specimen | | (specimen) | + + + +---------+ + + | Performing | Address | City/State/Zipcode | Phone Number | | Organization | | | | + +---------+ + + | EXTERNAL LAB | | | | + +---------+ + + Protime INR (12/23/2013 10:37 AM PDT) + + + + + [...] | | | | performed at [facility] | | | | | | [address];[place], [place] | | | | | | [address] | | | | + + + [...] + +---------+ + + External Lab: CBC (12/23/2013 10:37 AM PDT) + + + + + + | Component | Value | Ref Range | Performed | Pathologist | | | | | At | Signature | + + + + + + | WBC | 7.9Comment: Testing | 3.8 - 11.0 K/uL | EXTERNAL | | | | performed at [facility];[address] | | LAB | | | | [address];[place] | | | | | | [address] | | | | + + + + + + | RED CELL | 3.70 (L)Comment: Testing | 4.20 - 5.70 | EXTERNAL | | | COUNT | performed at [facility];[address] | M/uL | LAB | | | | [address];[place] | | | | | | [address] | | | | + + + + + + | Hgb | 11.6 (L)Comment: Testing | 13.2 - 17.0 | EXTERNAL | | | | performed at [facility];[address] | g/dL | LAB | | | | [address];[place] | | | | | | [address] | | | | + + + + + + | Hematocrit, | 34.8 (L)Comment: Testing | 39.0 - 50.0 % | EXTERNAL | | | POC | performed at [facility];[address] | | LAB | | | | [address];[place] | | | | | | [address] | | | | + + + + + + | MCV | 93.9Comment: Testing | 80.0 - 100.0 fl | EXTERNAL | | | | performed at [facility];[address] | | LAB | | | | [address];[place] | | | | | | [address] | | | | + + + + + + | MCH | 31.4Comment: Testing | 27.0 - 34.0 pg | EXTERNAL | | | | performed at [facility];[address] | | LAB | | | | [address];[place] | | | | | | [address] | | | | + + + + + + | MCHC | 33.5Comment: Testing | 32.0 - 35.5 | EXTERNAL | | | | performed at [facility];[address] | g/dL | LAB | | | | [address];[place] | | | | | | [address] | | | | + + + + + + | RDW-CV | 48.1Comment: Testing | 37 - 53 fl | EXTERNAL | | | | performed at [facility];[address] | | LAB | | | | [address];[place] | | | | | | [address] | | | | + + + + + + | Platelet | 257Comment: Testing | 150 - 400 K/uL | EXTERNAL | | | Count | performed at [facility];[address] | | LAB | | | Plasma | [address];[place] | | | | | | [address] | | | | + + + + + + | MPV | 6.5Comment: Testing | fl | EXTERNAL | | | | performed at [facility];[address] | | LAB | | | | [address];[place] | | | | | | [address] | | | | + + + + + + | Differentia | AUTOMATEDComment: | | EXTERNAL | | | l Type | Testing performed at | | LAB | | | | [facility];[address];[place] [address] | | | | + + + + + + | % Segmented | 65.0Comment: Testing | % | EXTERNAL | | | | performed at [facility];[address] | | LAB | | | Neutrophils | [address];[place] | | | | | | [address] | | | | + + + + + + | % | 15.6Comment: Testing | % | EXTERNAL | | | Lymphocytes | performed at [facility];[address] | | LAB | | | | [address];[place] | | | | | | [address] | | | | + + + + + + | % Monocytes | 13.9Comment: Testing | % | EXTERNAL | | | | performed at [facility];[address] | | LAB | | | | [address];[place] | | | | | | [address] | | | | + + + + + + | % | 4.9Comment: Testing | % | EXTERNAL | | | Eosinophils | performed at [facility];[address] | | LAB | | | | [address];[place] | | | | | | [address] | | | | + + + + + + | % Basophils | 0.6Comment: Testing | % | EXTERNAL | | | | performed at [facility];[address] | | LAB | | | | [address];[place] | | | | | | [address] | | | | + + + + + + | Absolute | 5.2Comment: Testing | 1.9 - 7.4 K/uL | EXTERNAL | | | Segmented | performed at [facility];[address] | | LAB | | | Neutrophils | [address];[place] | | | | | | [address] | | | | + + + + + + | Absolute | 1.2Comment: Testing | 1.0 - 3.9 K/uL | EXTERNAL | | | Lymphocytes | performed at [facility];[address] | | LAB | | | | [address];[place] | | | | | | [address] | | | | + + + + + + | Absolute | 1.1 (H)Comment: Testing | 0 - 0.8 K/uL | EXTERNAL | | | Monocytes | performed at [facility];[address] | | LAB | | | | [address];[place] | | | | | | [address] | | | | + + + + + + | Absolute | 0.4Comment: Testing | 0 - 0.5 K/uL | EXTERNAL | | | Eosinophils | performed at [facility];[address] | | LAB | | | | [address];[place] | | | | | | [address] | | | | + + + + + + | Absolute | 0.0Comment: Testing | 0 - 0.1 K/uL | EXTERNAL | | | Basophils | performed at [facility];[address] | | LAB | | | | [address];[place] | | | | | | [address] | | | | + + + [...] + +---------+ + + Basic Metabolic Panel (12/23/2013 10:37 AM PDT) + + + + + + | Component | Value | Ref Range | Performed | Pathologist | | | | | At | Signature | + + + + + + | Na | 130 (L)Comment: Testing | 135 - 143 | EXTERNAL | | | | performed at [facility];[address] | mmol/L | LAB | | | | [address];[place] | | | | | | [address] | | | | + + + + + + | K | 3.5Comment: Testing | 3.5 - 4.9 | EXTERNAL | | | | performed at [facility];888 | mmol/L | LAB | | | | [address];[place] | | | | | | [address] | | | | + + + + + + | Cl | 88 (L)Comment: Testing | 99 - 109 mmol/L | EXTERNAL | | | | performed at [facility];888 | | LAB | | | | [address];[place] | | | | | | [address] | | | | + + + + + + | CO2 | 30Comment: Testing | 23 - 32 mmol/L | EXTERNAL | | | | performed at [facility];[address] | | LAB | | | | [address];[place] | | | | | | [address] | | | | + + + + + + | Anion Gap | 16Comment: Testing | 5 - 20 mmol/L | EXTERNAL | | | | performed at [facility];[address] | | LAB | | | | [address];[place] | | | | | | [address] | | | | + + + + + + | Glucose, | 101 (H)Comment: Testing | 65 - 99 mg/dL | EXTERNAL | | | Fasting | performed at [facility];[address] | | LAB | | | | [address];[place] | | | | | | [address] | | | | + + + + + + | BUN | 37 (H)Comment: Testing | 8 - 25 mg/dL | EXTERNAL | | | | performed at [facility];[address] | | LAB | | | | [address];[place] | | | | | | [address] | | | | + + + + + + | Creatinine | 9.47 (H)Comment: Testing | 0.70 - 1.30 | EXTERNAL | | | | performed at [facility];888 | mg/dL | LAB | | | | [address];[place] | | | | | | [address] | | | | + + + + + + | BUN/Creatin | 4Comment: Testing | | EXTERNAL | | | ine Ratio | performed at [facility];888 | | LAB | | | | [address];[place] | | | | | | [address] | | | | + + + + + + | Calcium | 8.2 (L)Comment: Testing | 8.5 - 10.2 | EXTERNAL | | | | performed at [facility];888 | mg/dL | LAB | | | | [address];[place] | | | | | | [address] | | | | + + + [...] | | | | | at [facility];[address] [place] [address] | | | | | | [facility];[place] [address] | | | | + + + [...]
--- OUTSIDE RECORDS SUMMARY | ~2019-05-20 | XMS | Encounter Summary ---
Demographics + + + | Address | [address] | | | [place] [address] | + + + | Home Phone | | + + + | Preferred Language | Unknown | + + + | Marital Status | Unknown | + + + | Mu-Ism Affiliation | 1076 | + + + [...] Team Providers + +------+ + | Care Infantry Operations Specialist Name | Role | Phone | + +------+ + PCP | Unavailable | + +------+ + Encounter Details +--------+ + + + + | Date | Type | Department | Care Team | Description | +--------+ + + + + | 10/05/ | Emergency | [facility] | Inocencio Burden | ESRD on hemodialysis | | 2018 | | MED[facility]ENTER | [address] | ([facility]); Cellulitis | | | | EMERGENCY CENTER | [address] | of right upper | | | | [address] | [place], [place] | extremity | | | | [place], [place] | [address] | | | | | [address] | [phone] | | | | | [phone] | | | +--------+ + + + [...] | Blood Pressure | 190/88 | 10/05/2017 6:11 PM | | | | | PDT | | + + + + + | Pulse | 80 | 10/05/2017 6:11 PM | | | | | PDT | | + + + + + | Temperature | 36.3 C (97.4 F) | 10/05/2017 6:11 PM | | | | | PDT | | + + + + + | Respiratory Rate | 16 | 10/05/2017 6:11 PM | | | | | PDT | | + + + + + | Oxygen Saturation | - | - | | + + + + + | Inhaled Oxygen | - | - | | | Concentration | | | | + + + + + | Weight | 82.2 kg (181 lb 3.5 | 10/05/2017 6:11 PM | | | | oz) | PDT | | + + + + + | Height | - | - | | + + + + + | Body Mass Index | 28.38 | 07/25/2017 11:15 AM | | | | | PST | | + + + + + documented in this encounter Medications at Time [...] | | | 17 | | | (NEPHRO-TUH) tablet | | | | | | [...] | CULTURE, BLOOD, 2ND | STAT | 10/05/2017 | | Results for this | | SPECIMEN (NON-ORD) | | 2:53 PM | | procedure are in the | | | | PDT | | results section. | + +--------+ + + + | VAS UPPER EXTREMITY | Routin | 10/05/2017 | | Results for this | | VENOUS RIGHT | e | 2:52 PM | | procedure are in the | | | | PDT | | results section. | + +--------+ + + + | HISTORICAL LAB PANEL | Routin | 10/05/2017 | | Results for this | | RESULT | e | 2:02 PM | | procedure are in the | | | | PDT | | results section. | + +--------+ + + + | TROPONIN I | Routin | 10/05/2017 | | Results for this | | | e | 2:02 PM | | procedure are in the | | | | PDT | | results section. | + +--------+ + + + | CULTURE, BLOOD | STAT | 10/05/2017 | | Results for this | | | | 2:02 PM | | procedure are in the | | | | PDT | | results section. | + +--------+ + + + documented in this encounter Results Culture, Blood, 2nd Specimen (10/05/2017 2:53 PM PDT) + + | Specimen | + + | Blood specimen | | (specimen) | + + + + + | Narrative | Performed At | + + + | Specimen Description BLOOD SPECIAL | EXTERNAL LAB | | REQUESTS LT AC CULTURE | | | NO GROWTH 6 DAYS | | + + + + +---------+ + + | Performing | Address | City/State/Zipcode | Phone Number | | Organization | | | | + +---------+ + + | EXTERNAL LAB | | | | + +---------+ + + VAS Upper Extremity Venous Right (10/05/2017 2:52 PM PDT) + + | Specimen | + + | | + + + + + | Impressions | Performed At | + + + | 1. No evidence of DVT. | | + + + + + + | Narrative | Performed At | + + + | CAR[facility] STANTON 1965 US UPPER EXTREMITY VENOUS DOPPLER RIGHT | | | 10/05/2017 2:52 PM INDICATION: Arm pain COMPARISON: None | | | TECHNIQUE: Right upper extremity venous duplex, grayscale, color-flow | | | and spectral analysis FINDINGS: The internal jugular vein is | | | patent. There is normal color flow of the internal jugular and | | | subclavian veins. Normal augmentation is present along the proximal | | | deep venous system. The cephalic vein is normally compressible. Mid | | | basilic vein is normal. Examination is limited due to patient | | | soft tissue hardness. | | + + + + + | Procedure Note | + + | Néstor, Rad Conversion - 02/04/2019 8:18 AM PDT CAROL Fuller [id number] UPPER EXTREMITY | | VENOUS DOPPLER RIGHT10/05/2017 2:52 PM INDICATION: Arm pain COMPARISON: None TECHNIQUE: | | Right upper extremity venous duplex, grayscale, color-flow and spectral analysis | | FINDINGS: The internal jugular vein is patent. There is normal color flow of the | | internal jugular and subclavian veins. Normal augmentation is present along the proximal | | deep venous system. The cephalic vein is normally compressible. Mid basilic vein is | | normal. Examination is limited due to patient soft tissue hardness. IMPRESSION: 1. No | | evidence of DVT. | | | |TECHNIQUE: Right upper extremity venous duplex, grayscale, color-flow and spectral analysis | | | |FINDINGS: The internal jugular vein is patent. There is normal color flow of the internal j ugular and subclavian veins. Normal augmentation is present along the proximal deep venous s ystem. The cephalic vein is | |normally compressible. Mid basilic vein is | |normal. | | | |Examination is limited due to patient soft tissue hardness. | | | |IMPRESSION: | |1. No evidence of DVT. | | | | | + + Culture, Blood (10/05/2017 2:02 PM PDT) + + | Specimen | + + | Blood specimen | | (specimen) | + + + + + | Narrative | Performed At | + + + | Specimen Description BLOOD, PERIPHERAL DRAW | EXTERNAL LAB | | SPECIAL REQUESTS L ARM CULTURE | | | NO GROWTH 6 DAYS | | + + + + +---------+ + + | Performing | Address | City/State/Zipcode | Phone Number | | Organization | | | | + +---------+ + + | EXTERNAL LAB | | | | + +---------+ + + HISTORICAL LAB PANEL RESULT (10/05/2017 2:02 PM PDT) + + + + + -+ | Component | Value | Ref Range | Performed | Pathologist | | | | | At | Signature | + + + + + -+ | WBC | 7.23 | 3.80 - 11.00 | EXTERNAL | | | | | K/uL | LAB | | + + + + + -+ | RED CELL | 3.92 (L) | 4.20 - 5.70 | EXTERNAL | | | COUNT | | M/uL | LAB | | + + + + + -+ | Hgb | 11.1 (L) | 13.2 - 17.0 | EXTERNAL | | | | | g/dL | LAB | | + + + + + -+ | Hematocrit, | 34.5 (L) | 39.0 - 50.0 % | EXTERNAL | | | POC | | | LAB | | + + + + + -+ | MCV | 87.9 | 80.0 - 100.0 fl | EXTERNAL | | | | | | LAB | | + + + + + -+ | MCH | 28.3 | 27.0 - 34.0 pg | EXTERNAL | | | | | | LAB | | + + + + + -+ | MCHC | 32.2 | 32.0 - 35.5 | EXTERNAL | | | | | g/dL | LAB | | + + + + + -+ | RDW-CV | 52.5 | 37 - 53 fl | EXTERNAL | | | | | | LAB | | + + + + + -+ | Platelet | 245 | 150 - 400 K/uL | EXTERNAL | | | Count | | | LAB | | | Plasma | | | | | + + + + + -+ | MPV | 7.1 | fl | EXTERNAL | | | | | | LAB | | + + + + + -+ | Differentia | AUTOMATED | | EXTERNAL | | | l Type | | | LAB | | + + + + + -+ | % Segmented | 72.19 | % | EXTERNAL | | | | | | LAB | | | Neutrophils | | | | | + + + + + -+ | % | 7.35 | % | EXTERNAL | | | Lymphocytes | | | LAB | | + + + + + -+ | % Monocytes | 7.16 | % | EXTERNAL | | | | | | LAB | | + + + + + -+ | % | 12.79 | % | EXTERNAL | | | Eosinophils | | | LAB | | + + + + + -+ | % Basophils | 0.51 | % | EXTERNAL | | | | | | LAB | | + + + + + -+ | Absolute | 5.22 | 1.90 - 7.40 | EXTERNAL | | | Segmented | | K/uL | LAB | | | Neutrophils | | | | | + + + + + -+ | Absolute | 0.53 (L) | 1.00 - 3.90 | EXTERNAL | | | Lymphocytes | | K/uL | LAB | | + + + + + -+ | Absolute | 0.52 | 0.00 - 0.80 | EXTERNAL | | | Monocytes | | K/uL | LAB | | + + + + + -+ | Absolute | 0.92 (H) | 0.00 - 0.50 | EXTERNAL | | | Eosinophils | | K/uL | LAB | | + + + + + -+ | Absolute | 0.04 | 0.00 - 0.10 | EXTERNAL | | | Basophils | | K/uL | LAB | | + + + + + -+ | Na | 133 (L) | 135 - 145 | EXTERNAL | | | | | mmol/L | LAB | | + + + + + -+ | K | 4.8 | 3.5 - 4.9 | EXTERNAL | | | | | mmol/L | LAB | | + + + + + -+ | Cl | 97 (L) | 99 - 109 mmol/L | EXTERNAL | | | | | | LAB | | + + + + + -+ | CO2 | 19 (L) | 23 - 32 mmol/L | EXTERNAL | | | | | | LAB | | + + + + + -+ | Anion Gap | 22 (H) | 5 - 20 mmol/L | EXTERNAL | | | | | | LAB | | + + + + + -+ | Glucose, | 134 (H) | 65 - 99 mg/dL | EXTERNAL | | | Fasting | | | LAB | | + + + + + -+ | BUN | 71 (H) | 8 - 25 mg/dL | [...] + + + -+ | Calcium | 7.5 (L) | 8.5 - 10.5 | EXTERNAL | | | | | mg/dL | LAB | | + + + + + -+ | Protein, | 7.2 | 6.3 - 8.2 g/dL | EXTERNAL | | | Total | | | LAB | | + + + + + -+ | Albumin | 3.2 (L) | 3.6 - 5.0 g/dL | EXTERNAL | | | | | | LAB | | + + + + + -+ | Globulin | 4.0 | 1.3 - 4.9 g/dL | EXTERNAL | | | | | | LAB | | + + + + + -+ | A/G Ratio | 0.8 (L) | 1.0 - 2.4 | EXTERNAL | | | | | | LAB | | + + + + + -+ | Bilirubin | 0.7 | 0.1 - 1.5 mg/dL | EXTERNAL | | | Total | | | LAB | | + + + + + -+ | ALP, | 82 | 35 - 115 U/L | EXTERNAL | | | External | | | LAB | | + + + + + -+ | AST | 22 | 10 - [...] + + -+ | CK, Total | 173 | 55 - 400 U/L | EXTERNAL [...] + + + -+ | aPTT, | 24 | 23 - 32 seconds | EXTERNAL | | | Patient | | | LAB | | + + + + + -+ | CK-MB | 8.1 (H) | 0.5 - 3.6 [...] | + +---------+ + + Troponin I (10/05/2017 2:02 PM PDT) + + + + + [...] | | | | | | ACUTE UT Testing | | | | | | performed at [facility];[address] | | | | | | [address] [facility];[place], [place] | | | | | | [address] | | | | + + + [...] | Diagnosis | + + | ESRD on hemodialysis (HCC) End stage renal disease | + + | Cellulitis of right upper extremity Cellulitis and abscess of upper arm and forearm | + + documented in this encounter Additional Health Concerns + + + + | Infection | Noted Time | Resolved Time | + + + + | Methicillin-resistant Staphylococcus aureus | 02/18/2017 12:00 AM | | | | PDT | | + + + + documented as of this encounter"
--- OUTSIDE RECORDS SUMMARY | ~2019-05-20 | XMS | Encounter Summary ---
Demographics + + + | Address | [address] | | | [place] [address] | + + + | Home Phone | | + + + | Preferred Language | Unknown | + + + | Marital Status | Unknown | + + + | Christian Affiliation | 1076 | + + + [...] Providers + +------+ + | Care Tool And Die Engineer Name | Role | Phone | + +------+ + PCP | Unavailable | + +------+ + Encounter Details +--------+ + + + + | Date | Type | Department | Care Team | Description | +--------+ + + + + | 04/04/ | Emergency | [facility] | Trevor Kelly, | Acute bronchitis; | | 2013 | | MEDICAL CENTER | [address] | Dyspnea; Chronic | | | | EMERGENCY CENTER | [place] [address] | renal failure | | | | [address] | [phone] | | | | | [place], [place] | | | | | | [address] | | | | | | [phone] | | | +--------+ + + + [...] CHEST 2 VIEW FRONTAL AND | | [id number]/04/2014 3:10 PM HISTORY:49 years. Male. Shortness of [...] | | | | performed at [facility];[address] | | LAB | | | | [address];[place], [place] | | | | | | [address] | | | | + + + + + -+ | RED CELL | 3.82 (L)Comment: Testing | 4.20 - 5.70 | EXTERNAL | | | COUNT | performed at [facility];888 | M/uL | LAB | | | | [address];[place] | | | | | | [address] | | | | + + + + + -+ | Hgb | 11.6 (L)Comment: Testing | 13.2 - 17.0 | EXTERNAL | | | | performed at [facility];888 | g/dL | LAB | | | | [address];[place] | | | | | | [address] | | | | + + + + + -+ | Hematocrit, | 34.4 (L)Comment: Testing | 39.0 - 50.0 % | EXTERNAL | | | POC | performed at [facility];[address] | | LAB | | | | [address];[place] | | | | | | [address] | | | | + + + + + -+ | MCV | 90.2Comment: Testing | 80.0 - 100.0 fl | EXTERNAL | | | | performed at [facility];[address] | | LAB | | | | [address];[place] | | | | | | [address] | | | | + + + + + -+ | MCH | 30.3Comment: Testing | 27.0 - 34.0 pg | EXTERNAL | | | | performed at [facility];[address] | | LAB | | | | [address];[place] | | | | | | [address] | | | | + + + + + -+ | MCHC | 33.6Comment: Testing | 32.0 - 35.5 | EXTERNAL | | | | performed at [facility];888 | g/dL | LAB | | | | [address];[place] | | | | | | [address] | | | | + + + + + -+ | RDW-CV | 53.4 (H)Comment: Testing | 37 - 53 fl | EXTERNAL | | | | performed at [facility];[address] | | LAB | | | | [address];[place] | | | | | | [address] | | | | + + + + + -+ | Platelet | 220Comment: Testing | 150 - 400 K/uL | EXTERNAL | | | Count | performed at [facility];[address] | | LAB | | | Plasma | [address];[place] | | | | | | [address] | | | | + + + + + -+ | MPV | 6.3Comment: Testing | fl | EXTERNAL | | | | performed at [facility];[address] | | LAB | | | | [address];[place] | | | | | | [address] | | | | + + + + + -+ | Differentia | AUTOMATEDComment: | | EXTERNAL | | | l Type | Testing performed at | | LAB | | | | [facility];[address];[place] [address] | | | | + + + + + -+ | % Segmented | 61.5Comment: Testing | % | EXTERNAL | | | | performed at [facility];[address] | | LAB | | | Neutrophils | [address];[place] | | | | | | [address] | | | | + + + + + -+ | % | 16.9Comment: Testing | % | EXTERNAL | | | Lymphocytes | performed at [facility];[address] | | LAB | | | | [address];[place] | | | | | | [address] | | | | + + + + + -+ | % Monocytes | 8.0Comment: Testing | % | EXTERNAL | | | | performed at [facility];[address] | | LAB | | | | [address];[place] | | | | | | [address] | | | | + + + + + -+ | % | 12.8Comment: Testing | % | EXTERNAL | | | Eosinophils | performed at [facility];[address] | | LAB | | | | [address];[place] | | | | | | [address] | | | | + + + + + -+ | % Basophils | 0.8Comment: Testing | % | EXTERNAL | | | | performed at [facility];[address] | | LAB | | | | [address];[place] | | | | | | [address] | | | | + + + + + -+ | Absolute | 3.5Comment: Testing | 1.9 - 7.4 K/uL | EXTERNAL | | | Segmented | performed at [facility];[address] | | LAB | | | Neutrophils | [address];[place] | | | | | | [address] | | | | + + + + + -+ | Absolute | 1.0Comment: Testing | 1.0 - 3.9 K/uL | EXTERNAL | | | Lymphocytes | performed at [facility];[address] | | LAB | | | | [address];[place] | | | | | | [address] | | | | + + + + + -+ | Absolute | 0.5Comment: Testing | 0 - 0.8 K/uL | EXTERNAL | | | Monocytes | performed at [facility];[address] | | LAB | | | | [address];[place] | | | | | | [address] | | | | + + + + + -+ | Absolute | 0.7 (H)Comment: Testing | 0 - 0.5 K/uL | EXTERNAL | | | Eosinophils | performed at [facility];[address] | | LAB | | | | [address];[place] | | | | | | [address] | | | | + + + + + -+ | Absolute | 0.0Comment: Testing | 0 - 0.1 K/uL | EXTERNAL | | | Basophils | performed at [facility];[address] | | LAB | | | | [address];[place] | | | | | | [address] | | | | + + + + + -+ | Na | 137Comment: Testing | 135 - 143 | EXTERNAL | | | | performed at [facility];888 | mmol/L | LAB | | | | [address];[place] | | | | | | [address] | | | | + + + + + -+ | K | 4.8Comment: Testing | 3.5 - 4.9 | EXTERNAL | | | | performed at [facility];888 | mmol/L | LAB | | | | [address];[place] | | | | | | [address] | | | | + + + + + -+ | Cl | 101Comment: Testing | 99 - 109 mmol/L | EXTERNAL | | | | performed at [facility];[address] | | LAB | | | | [address];[place] | | | | | | [address] | | | | + + + + + -+ | CO2 | 28Comment: Testing | 23 - 32 mmol/L | EXTERNAL | | | | performed at [facility];[address] | | LAB | | | | [address];[place] | | | | | | [address] | | | | + + + + + -+ | Anion Gap | 13Comment: Testing | 5 - 20 mmol/L | EXTERNAL | | | | performed at [facility];[address] | | LAB | | | | [address];[place] | | | | | | [address] | | | | + + + + + -+ | Glucose, | 120 (H)Comment: Testing | 65 - 99 mg/dL | EXTERNAL | | | Fasting | performed at [facility];[address] | | LAB | | | | [address];[place] | | | | | | [address] | | | | + + + + + -+ | BUN | 27 (H)Comment: Testing | 8 - 25 mg/dL | EXTERNAL | | | | performed at [facility];[address] | | LAB | | | | [address];[place] | | | | | | [address] | | | | + + + + + -+ | Creatinine | 6.67 (H)Comment: Testing | 0.70 - 1.30 | EXTERNAL | | | | performed at [facility];888 | mg/dL | LAB | | | | [address];[place] | | | | | | [address] | | | | + + + + + -+ | BUN/Creatin | 4Comment: Testing | | EXTERNAL | | | ine Ratio | performed at [facility];[address] | | LAB | | | | [address];[place] | | | | | | [address] | | | | + + + + + -+ | Calcium | 7.8 (L)Comment: Testing | 8.5 - 10.2 | EXTERNAL | | | | performed at [facility];888 | mg/dL | LAB | | | | [address];[place] | | | | | | [address] | | | | + + + + + -+ | Protein, | 6.8Comment: Testing | 6.3 - 8.2 g/dL | EXTERNAL | | | Total | performed at [facility];[address] | | LAB | | | | [address];[place] | | | | | | [address] | | | | + + + + + -+ | Albumin | 2.9 (L)Comment: Testing | 3.6 - 5.0 g/dL | EXTERNAL | | | | performed at [facility];[address] | | LAB | | | | [address];[place] | | | | | | [address] | | | | + + + + + -+ | Globulin | 3.8Comment: Testing | 1.3 - 4.9 g/dL | EXTERNAL | | | | performed at [facility];[address] | | LAB | | | | [address];[place] | | | | | | [address] | | | | + + + + + -+ | A/G Ratio | 0.8 (L)Comment: Testing | 1.0 - 2.4 | EXTERNAL | | | | performed at [facility];[address] | | LAB | | | | [address];[place] | | | | | | [address] | | | | + + + + + -+ | Bilirubin | 0.6Comment: Testing | 0.1 - 1.5 mg/dL | EXTERNAL | | | Total | performed at [facility];[address] | | LAB | | | | [address];[place] | | | | | | [address] | | | | + + + + + -+ | ALP, | 140 (H)Comment: Testing | 35 - 115 U/L | EXTERNAL | | | External | performed at [facility];[address] | | LAB | | | | [address];[place] | | | | | | [address] | | | | + + + + + -+ | AST | 39Comment: Testing | 10 - 45 U/L | EXTERNAL | | | | performed at [facility];[address] | | LAB | | | | [address];[place] | | | | | | [address] | | | | + + + + + -+ | ALT | 49Comment: Testing | 10 - 65 U/L | EXTERNAL | | | | performed at [facility];[address] | | LAB | | | | [address];[place] | | | | | | [address] | | | | + + + [...] | | | | | at [facility];[address] | | | | | [address];[place] [address] | | | | + + + + + -+ | CK, Total | 62Comment: Testing | 55 - 400 U/L | EXTERNAL | | | | performed at [facility];[address] | | LAB | | | | [address];[place] | | | | | | [address] | | | | + + + [...] | | | | performed at [facility];[address] | | | | | | [address];[place] | | | | | | [address] | | | | + + + + + -+ | aPTT, | 25Comment: Testing | 23 - 32 seconds | EXTERNAL | | | Patient | performed at [facility];[address] | | LAB | | | | [address];[place] | | | | | | [address] | | | | + + + + + -+ | CK-MB | 3.2Comment: Testing | 0.5 - 3.6 ng/mL | EXTERNAL | | | | performed at [facility];[address] | | LAB | | | | [address];[place] | | | | | | [address] | | | | + + + [...] | | | | performed at [facility] | | LAB | | | | [address];[place] | | | | | | [address] | | | | + + + [...]
--- OUTSIDE RECORDS SUMMARY | ~2019-05-20 | XMS | Encounter Summary ---
Demographics + + + | Address | [address] | | | [place] [address] | + + + | Home Phone | | + + + | Preferred Language | Unknown | + + + | Marital Status | Unknown | + + + | Jewish Affiliation | 1076 | + + + | Race | Unknown | + + + | Ethnic Group | Unknown | + + + Author + + + | Author | [facility] | | | and [place] | + + + | Organization | [facility] | | [...] Team Providers + +------+ + | Care Poultry Picking Machine Tender Name | Role | Phone | [...] | | | | CENTER [address] | | Dx) | | | | [place], [place] | | | | | | [phone] | | | | | | [phone] | | | +--------+ + + + [...]
--- OUTSIDE RECORDS SUMMARY | ~2019-05-20 | XMS | Encounter Summary ---
Demographics + + + | Address | [address] | | | [place] [address] | + + + | Home Phone | | + + + | Preferred Language | Unknown | + + + | Marital Status | Unknown | + + + | Mu-Ism Affiliation | 1076 | + + + | Race | Unknown | + + + | Ethnic Group | Unknown | + + + Author + + + | Author | [facility] | | | and [place] | + + + | Organization | [facility] | | | and [...] Team Providers + +------+ + | Care Shampoo Technician Name | Role | Phone | + +------+ + PCP | Unavailable | + +------+ + Encounter Details +--------+ + + + + | Date | Type | Department | Care Team | Description | +--------+ + + + + | 01/30/ | Hospital | [facility] | Conversion | Pain | | 2012 | Encounter | CONVERSION [address]P [address] | Transaction, | | | | | [address] | Provider Unknown | | | | | [place], [place] | | | | | | [phone] | (Fax) | | | | | [phone] | | | +--------+ + + + [...] + +--------+ + + + | CT HEAD WO CONTRAST | Routin | 10/03/2012 | | Results for this | | | e | 12:25 PM | | procedure are in the | | | | PDT | | results section. | + +--------+ + + + documented in this encounter Results CT Head wo Contrast (10/03/2012 12:25 PM PDT) + + | Specimen | + + | | + + + + + | Narrative | Performed At | + + + | This is a non-reportable procedure without a radiologist report and | | | is used for image storage only | | + + + + + | Procedure Note | + + | Khalif Palm - 02/13/2019 4:30 PM PDT This is a non-reportable procedure | | without a radiologist report and isused for image storage only | + + documented in this encounter Visit Diagnoses + + | Diagnosis | + + | Pain Generalized pain | + + documented in this encounter"
--- OUTSIDE RECORDS SUMMARY | ~2019-05-20 | XMS | Encounter Summary ---
Demographics + + + | Address | [address] | | | [place] [address] | + + + | Home Phone | | + + + | Preferred Language | Unknown | + + + | Marital Status | Unknown | + + + | Zoroastrian Affiliation | 1076 | + + + | Race | Unknown | + + + | Ethnic Group | Unknown | + + + Author + + + | Author | [facility] | | | and [place] | + + + | Organization | [facility] | | | [...] Team Providers + +------+ + | Care Accreditation Coordinator Name | Role | Phone | + +------+ + | Andry Deng DO | PCP | | + +------+ + Encounter Details +--------+ + + + + | Date | Type | Department | Care Team | Description | +--------+ + + + + | 05/17/ | Orders Only | [facility] | Conversion | | | 2013 | | INFECTIOUS DISEASE | Transaction, | | | | | [address] | Provider Unknown | | | | | [place], [place] | [phone] | | | | | [address] | | | | | | [phone] | | | +--------+ + + + [...] + + + | RED CELL | 3.92 | 10 | EXTERNAL | | | COUNT | | | LAB | | + +-------+ + + + | Hgb | 11.7 | g/dL | EXTERNAL | [...]
--- OUTSIDE RECORDS SUMMARY | ~2019-05-20 | XMS | Encounter Summary ---
Demographics + + + | Address | [address] | | | [place] [address] | + + + | Home Phone | | + + + | Preferred Language | Unknown | + + + | Marital Status | Unknown | + + + | Yarsani Affiliation | 1076 | + + + | Race | Unknown | + + + | Ethnic Group | Unknown | + + + Author + + + | Author | [facility] | | | and [place] | + + + | Organization | [facility] | | | and [...] Team Providers + +------+ + | Care Oven Attendant Name | Role | Phone | + +------+ + PCP | Unavailable | + +------+ + Encounter Details +--------+ + + + + | Date | Type | Department | Care Team | Description | +--------+ + + + + | 12/01/ | Hospital | [facility] | Conversion | ESRD (end stage | | 2014 | Encounter | [facility] | Transaction, | renal disease) (HCC) | | | | [address] | Provider Unknown | | | | | [place], [place] | [phone] | | | | | [address] | | | | | | [phone] | Juan Timmons MD | | | | | | [address] | | | | | | [place] | | | | | | [address] | | | | | | | [...] ician Filed: 12/01/13 1156 Date of Service: 12/01/13 1120 Status: Addendum Felling Machine Operator: Melvi Tate MD (Physician) Related Notes: Original Note by Elana Mittal RN (Registered Nurse) filed at 12/01/13 11 21 Critical lab result given to Dr Tate. No new orders DARRELL Peña discussed with Dr. Timmons. Patient to dialysis immediately after procedur e. documente d in this encounter Plan of [...] above. Procedure performed | | | by david Zavaleta for allowing participation in the care of [...] removed and a new 23 cm [facility] | | | catheter was introduced over [...] Rad Conversion - 02/06/2019 10:59 AM PDT Tunneled [...] removed and a new 23 cm [facility] [place] catheter was | | introduced over the [...] removed and a new 23 cm [facility] c atheter was introduced over the wire. [...] above. | | | |Procedure performed by david Zavaleta for allowing participation in the care of [...] | | | | | performed at [facility];[address] | | | | | | [facility];[place], [place] | | | | | | [address] | | | | + + + [...] [place] | | | | | | [address] | | | | + + + + + + | RED CELL | 3.82 (L)Comment: Testing | 4.20 - 5.70 | EXTERNAL | | | COUNT | performed at [facility];[address] | M/uL | LAB | | | | [address];[place] | | | | | | [address] | | | | + + + + + + | Hgb | 12.5 (L)Comment: Testing | 13.2 - 17.0 | EXTERNAL | | | | performed at [facility];[address] | g/dL | LAB | | | | [address];[place] | | | | | | [address] | | | | + + + + + + | Hematocrit, | 36.7 (L)Comment: Testing | 39.0 - 50.0 % | EXTERNAL | | | POC | performed at [facility];[address] | | LAB | | | | [address];[place] | | | | | | [address] | | | | + + + + + + | MCV | 96.0Comment: Testing | 80.0 - 100.0 fl | EXTERNAL | | | | performed at [facility];[address] | | LAB | | | | [address];[place] | | | | | | [address] | | | | + + + + + + | MCH | 32.8Comment: Testing | 27.0 - 34.0 pg | EXTERNAL | | | | performed at [facility];[address] | | LAB | | | | [address];[place] | | | | | | [address] | | | | + + + + + + | MCHC | 34.2Comment: Testing | 32.0 - 35.5 | EXTERNAL | | | | performed at [facility];[address] | g/dL | LAB | | | | [address];[place] | | | | | | [address] | | | | + + + + + + | RDW-CV | 51.6Comment: Testing | 37 - 53 fl | EXTERNAL | | | | performed at [facility];[address] | | LAB | | | | [address];[place] | | | | | | [address] | | | | + + + + + + | Platelet | 188Comment: Testing | 150 - 400 K/uL | EXTERNAL | | | Count | performed at [facility];[address] | | LAB | | | Plasma | [address];[place] | | | | | | [address] | | | | + + + + + + | MPV | 6.6Comment: Testing | fl | EXTERNAL | | | | performed at [facility];[address] | | LAB | | | | [address];[place] | | | | | | [address] | | | | + + + + + + | Differentia | AUTOMATEDComment: | | EXTERNAL | | | l Type | Testing performed at | | LAB | | | | [facility];[address];[place] [address] | | | | + + + + + + | % Segmented | 71.6Comment: Testing | % | EXTERNAL | | | | performed at [facility];[address] | | LAB | | | Neutrophils | [address];[place] | | | | | | [address] | | | | + + + + + + | % | 12.4Comment: Testing | % | EXTERNAL | | | Lymphocytes | performed at [facility];[address] | | LAB | | | | [address];[place] | | | | | | [address] | | | | + + + + + + | % Monocytes | 11.0Comment: Testing | % | EXTERNAL | | | | performed at [facility];[address] | | LAB | | | | [address];[place] | | | | | | [address] | | | | + + + + + + | % | 4.6Comment: Testing | % | EXTERNAL | | | Eosinophils | performed at [facility];[address] | | LAB | | | | [address];[place] | | | | | | [address] | | | | + + + + + + | % Basophils | 0.4Comment: Testing | % | EXTERNAL | | | | performed at [facility];[address] | | LAB | | | | [address];[place] | | | | | | [address] | | | | + + + + + + | Absolute | 4.9Comment: Testing | 1.9 - 7.4 K/uL | EXTERNAL | | | Segmented | performed at [facility];[address] | | LAB | | | Neutrophils | [address];[place] | | | | | | [address] | | | | + + + + + + | Absolute | 0.9 (L)Comment: Testing | 1.0 - 3.9 K/uL | EXTERNAL | | | Lymphocytes | performed at [facility];[address] | | LAB | | | | [address];[place] | | | | | | [address] | | | | + + + + + + | Absolute | 0.8Comment: Testing | 0 - 0.8 K/uL | EXTERNAL | | | Monocytes | performed at [facility];[address] | | LAB | | | | [address];[place] | | | | | | [address] | | | | + + + + + + | Absolute | 0.3Comment: Testing | 0 - 0.5 K/uL | EXTERNAL | | | Eosinophils | performed at [facility];[address] | | LAB | | | | [address];[place] | | | | | | [address] | | | | + + + + + + | Absolute | 0.0Comment: Testing | 0 - 0.1 K/uL | EXTERNAL | | | Basophils | performed at [facility];[address] | | LAB | | | | [address];[place], [place] | | | | | | [address] | | | | + + + [...] at [facility];[address] | mmol/L | LAB | | | | [address];[place] | | | | | | [address] | | | | + + + + + + | K | 4.2Comment: Testing | 3.5 - 4.9 | EXTERNAL | | | | performed at [facility];[address] | mmol/L | LAB | | | | [address];[place] | | | | | | [address] | | | | + + + + + + | Cl | 105Comment: Testing | 99 - 109 mmol/L | EXTERNAL | | | | performed at [facility];[address] | | LAB | | | | [address];[place] | | | | | | [address] | | | | + + + + + + | CO2 | 13 (LL)Comment: CALLED | 23 - 32 mmol/L | EXTERNAL | | | | RESULTSREAD BACK RESULTS | | LAB | | | | VERIFIEDJOSE/DR POSADA | | | | | | AT 1113 BY SALTesting | | | | | | performed at [facility];[address] | | | | | | [address];[place] | | | | | | [address] | | | | + + + + + + | Anion Gap | 20Comment: Testing | 5 - 20 mmol/L | EXTERNAL | | | | performed at [facility];[address] | | LAB | | | | [address];[place] | | | | | | [address] | | | | + + + + + + | Glucose, | 93Comment: Testing | 65 - 99 mg/dL | EXTERNAL | | | Fasting | performed at [facility];[address] | | LAB | | | | [address];[place] | | | | | | [address] | | | | + + + + + + | BUN | 53 (H)Comment: Testing | 8 - 25 mg/dL | EXTERNAL | | | | performed at [facility];[address] | | LAB | | | | [address];[place] | | | | | | [address] | | | | + + + + + + | Creatinine | 10.71 (H)Comment: | 0.70 - 1.30 | EXTERNAL | | | | Testing performed at | mg/dL | LAB | | | | [facility];[address] | | | | | | [address];[place] [address] | | | | + + + + + + | BUN/Creatin | 5Comment: Testing | | EXTERNAL | | | ine Ratio | performed at [facility];[address] | | LAB | | | | [address];[place] | | | | | | [address] | | | | + + + + + + | Calcium | 7.4 (L)Comment: Testing | 8.5 - 10.2 | EXTERNAL | | | | performed at [facility];[address] | mg/dL | LAB | | | | [address];[place] | | | | | | [address] | | | | + + + [...] | | | | | | at [facility];[address];[place] [address] | | | | + + + [...] EXTERNAL LAB | | Testing performed at [facility];[address] [facility];[place] [address] MRSA PCR | | | NEGATIVE Testing performed at | | | [facility];[address] [facility];[place] [address] | | + + + + +---------+ [...]
--- OUTSIDE RECORDS SUMMARY | ~2019-05-20 | XMS | Encounter Summary ---
Demographics + + + | Address | [address] | | | [place] [address] | + + + | Home Phone [...] Providers + +------+ + | Care Sales And Service Consultant Name | Role | Phone | + +------+ + PCP | Unavailable | + +------+ + Encounter Details +--------+ + + + + | Date | Type | Department | Care Team | Description | +--------+ + + + + | 04/02/ | Hospital | [facility] | MilanjuliaDorarobi, | Acute renal failure | | 2011 - | Encounter | [facility] | [address] | (FORMERLY [facility]); Acidosis; | | | | CARE [address]LOOR [address] | [place] [address] | Hyperphosphatemia; | | 04/15/ | | [address] | [phone] | Rash and nonspecific | | 2011 | | [place], [place] | | skin eruption; | | | | [phone] | | Renal failure, acute | | | | [phone] | | (FORMERLY [facility]); Vitamin d | | | | | | deficiency; | | | | | | Secondary | | | | | | hyperparathyroidism | | | | | | (of renal origin) | | | | | | ([facility]LY [facility]); Hypokalemia; | | | | | | Essential | | | | | | hypertension, | | | | | | benign; | | | | | | Hypocalcemia; | | | | | | Hypomagnesemia; | | | | | | Metabolic acidosis; | | | | | | Type II or | | | | | | unspecified type | | | | | | diabetes mellitus | | | | | | without mention of | | | | | | complication, not | | | | | | stated as | | | | | | uncontrolled ([facility]); | | | | | | 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, | | | | | | continuous ([facility]); | | | | | | Eczema herpeticum; | | | | | | Hypothyroidism; MSSA | | | | | | (methicillin | | | | | | susceptible | | | | | | Staphylococcus | | | | | | aureus) infection; | | | | | | Diabetes mellitus | | | | | | with ESRD (end-stage | | | | | | renal disease) | | | | | | ([facility]); Hyponatremia; | | | | | | Hypoalbuminemia; | | | | | | Obesity (BMI | | | | | | 30-39.9); | | | | | | Unspecified asthma; | | | | | | Chest pain; Protein | | | | | | calorie malnutrition | | | | | | ([facility]); Anemia; | | | | | | Hyperkalemia; | | | | | | Uncontrolled | | | | | | diabetes mellitus | | | | | | ([facility]LY [facility]); | | | | | | Methamphetamine | | | | | | abuse; | | | | | | Rhabdomyolysis | +--------+ + + + + Social [...] encounter Discharge Summaries Vikram Chandra MD - 04/15/2012 12:26 PM PDT Discharge Summaries by Vikram Chandra MD at 04/15/12 3769 Author: Vikram Chandra MD Service: Hospitalist Author Type: Physician Filed: 04/15/12 9926 Date of Service: 04/15/126 Status: Signed Economic Development Coordinator: Vikram Chandra MD (Physician) [facility] Service: Hospitalist Physician Discharge Summary Pt: Carol Potter AGE/SEX: 47 y.o. male ROOM: [address] [place] [address] PCP: Ashly Quick MD, MD : 1965 Admit date: 04/02/2012 Discharge date and time: 04/15/2012 12:26 PM Admitting Physician: Neli Trujillo MD Discharge Physician: Vikram Chandra MD Consults: Dr. Yang Smith Primary Discharge Diagnoses: Eczema herpeticum [054.0] Type II or unspecified type diabetes mellitus without mention of complication, not stated a s uncontrolled [250.00] Hypocalcemia [275.41] Acidosis [276.2] Amphetamine and other psychostimulant dependence, continuous [304.41] Essential hypertension, benign [401.1] Rhabdomyolysis [728.88] Secondary hyperparathyroidism (of renal origin) [588.81] Hypokalemia [276.8] Hyperkalemia [276.7] Hypomagnesemia [275.2] Hyperphosphatemia [275.3] Hyponatremia [276.1] Renal failure, acute [584.9] Protein calorie malnutrition [263.9] Metabolic acidosis [276.2] Chest pain [786.50] Rash and nonspecific skin eruption [782.1] Anemia [285.9] Hypothyroidism [244.9] Acute renal failure [584.9] Vitamin d deficiency [268.9] Uncontrolled diabetes mellitus [250.02] Methamphetamine abuse [305.70] MSSA (methicillin susceptible Staphylococcus aureus) infection [041.11] Diabetes mellitus with ESRD (end-stage renal disease) [250.40] Secondary Discharge Diagnoses: acquired perforating dermatosis Discharged Condition: stable Significant Diagnostic Studies: Echo 1. Mild Degenerative Valvular Heart Disease. Aortic valve mildly sclerotic, no /AI. Kathy l, Tricuspid, and Pulmonic valves grossly NML. Mild MR, mild TR. 2. Mild concentric LVH, sys tolic function low NML, Grade II diastolic abnormality, LVEF 50-55%. RV mildly enlarged, sys tolic function preserved. Moderate LAE. Mild GREGORIO. 3. Small Pericardial effusion, no tamponad e. 4. No obvious masses or vegetation, however, cannot R/O endocarditis. CT IMPRESSION: 1. Medium pleural effusions with minor overlying atelectasis. 2. Pericardial effusion US Upper Extremity IMPRESSION: 1. No evidence of left upper extremity vein thrombosis. Biopsy KIdney: Showed Fibrosis HPI and Hospital Course: 47 year old with history of Hyperlipidemia, Hypertension, Diabetes mellitus type II, Asthma , Thyroid disease ,Meth abuse , denies alcoholism, MSSA bacteremia previously Apr 01 disapp eared from repeat blood cultures then grown on culture on 04/11/12 also [facility], who presented by ambulance from [facility] . Was there at 04/01 at 2100 due to chest pain. He was given NTG there which relieved his luca n. He was found have a creatinine of 14.2 and was hyperkalemic with a K of 7.3. He also has been using meth amphetamine on that day which he says he only recently started. The pt does complain of an " itchy rash." The pt's rash has been present for the past "4-5 days. And is all over his body . He denies any current chest pain. Despite medical treatment BUN and creatinine very slow t o come down and subsequently after Kidney biopsy started on dialysis. He will be on HD. He h ad skin Biopsy that showed acquired perforating dermatosis. Plan MSSA bacteremia with bacteriuria -most likely from infected IV that has now been removed or his multiple cutaneous lesions. TTE had been negative. 04/13 blood cultures have remained negative with another set sent ear lier today. He is clinically stable at this time To facilitate IV antibiotic treatment on , he will be put on IV vancomycin 750 mg IV with dialysis. I am recommending 6 weeks of antibiotic Rx with the skin lesions and his new tunneled HD catheter. Plan on ID follow u p in a week. Orders for antibiotics and laboratory tests are in the patient's chart. Skin Rash -Pathology report discussed with Dr. Isaac as suggestive of acquired perforating dermato sis that is typicall found in patients with kidney disease/dialysis. Await special stains (p articularly for mycobacteria) on the Pathology specimen. The pathology specimen will also be reevaluated in [place] Renal Failure -kidney biopsy shows advanced fibrotic changes with little chance of recovery. HD planned i n the [place] area He Had no CP, SOB, N/V, Diarrhea, Abdominal pain or MARTINEZ. No constipation or change in bowel habits. No orthopnea or PND. Appetite is good without abdominal bloating. No cough or fever. No dizziness, lightheadedness or any symptoms suggestive of stroke. Discharge Vitals: Filed Vitals: 04/15/12 0005 04/15/12 0421 04/15/12 0726 04/15/12 1132 BP: 169/92 125/59 167/81 180/94 Pulse: 69 73 77 64 Temp: 98.4 F (36.9 C) 98 F (36.7 C) 98.7 F (37.1 C) 97.9 F (36.6 C) TempSrc: Oral Oral Oral Resp: 20 16 16 16 Height: Weight: 99.7 kg (219 lb 12.8 oz) SpO2: 100% 100% 99% 100% Discharge Exam: Constitutional: Alert and oriented to person, place, and time. Appears well-developed and w ell-nourished. Cardiovascular: Normal rate, regular rhythm, normal heart sounds with S1 and S2 and intact distal pulses. Exam reveals no [...] normal muscle tone. Coordination norm al. Skin: rash lower extremity Psychiatric: Has a normal mood and affect. Behavior is normal. Judgment normal. LABS: Lab 04/14/1242304/13/1245004/12/12 1038 WBC 10.4 17.3* -- HGB 8.5* 7.0*|7.0* 6.9* HCT 24.7* 21.0*|21.0* 20.4* PLT 249 250 254 NEUTOPHILPCT 71.5 -- -- MONOPCT 9.9 -- -- Lab 04/15/12 0440 04/14/12 0424 04/13/121 04/08/12 2153 NA 132* 129* 134* -- K 3.4* 3.6 3.2* -- CL 98* 95* 98* -- CO2 24 22* 23 -- BUN 25 38* 33* -- CREATININE 4.80* 5.90* 5.06* -- CALCIUM -- -- -- -- PROT 5.3* 5.6* 5.3* -- BILITOT 0.2 0.3 0.3 -- ALKPHOS -- -- -- -- ALT 30 30 31 -- AST 28 28 28 -- GLUCOSE -- -- -- 466* Phosphorus: Lab Results Component Value Date PHOS 4.2 04/07/2012 Lab 04/09/12 0507 APTT -- INR 1.0 PTT -- Lab 04/11/12 1720 CKTOTAL 285 TROPONINI -- TROPONINT -- CKMBINDEX -- Disposition: Home Patient Instructions: Current Discharge Medication List START taking these medications Details amlodipine (NORVASC) 10 MG tablet Take 1 tablet by mouth daily. Qty: 30 tablet, Refills: 1 Associated Diagnoses: Essential hypertension, benign calcitRIOL (ROCALTROL) 0.25 MCG capsule Take 1 capsule by mouth daily. Qty: 30 capsule, Refills: 1 Associated Diagnoses: Secondary hyperparathyroidism (of renal origin) calcium acetate (PHOSLO) 667 MG capsule Take 2 capsules by mouth 3 (three) times daily wit h meals. Qty: 180 capsule, Refills: 0 Associated Diagnoses: Hyperphosphatemia ergocalciferol (DRISDOL) 87283 UNITS capsule Take 1 capsule by mouth once a week. Qty: 3 capsule, Refills: 0 hydrocodone-acetaminophen (NORCO) 5-325 MG per tablet Take 1 tablet by mouth every 6 (six) hours as needed for Pain (for pain scale 3 - 5). Qty: 30 tablet, Refills: 0 levothyroxine (SYNTHROID, LEVOTHROID) 25 MCG tablet Take 1 tablet by mouth every morning b efore breakfast. Qty: 30 tablet, Refills: 0 vancomycin (VANCOCIN) IVPB Administer 750 mg IV with hemodialysis on dialysis days Qty: 17 Doses, Refills: 0 CONTINUE these medications which have NOT CHANGED Details ALBUTEROL IN Inhale 2 puffs into the lungs daily. aspirin 81 MG EC tablet Take 81 mg by mouth daily. carbamazepine (TEGRETOL) 200 MG tablet Take 200 mg by mouth 3 (three) times daily. Per pt medication list pt takes 400 mg in a.m. And 200 mg in p.m. glipiZIDE (GLUCOTROL) 10 MG tablet Take 10 mg by mouth daily. metformin (GLUCOPHAGE) 1000 MG tablet Take 1,000 mg by mouth 2 (two) times daily with meal s. sitagliptan (JANUVIA) 100 MG tablet Take 100 mg by mouth daily. STOP taking these medications lisinopril (PRINIVIL,ZESTRIL) 10 MG tablet naproxen (NAPROSYN) 500 MG tablet calcium carbonate (OS-BELTRAN) 600 MG TABS Activity: activity as tolerated Diet: diabetic diet and renal diet Wound Care: as directed Follow-up with PCP [address] Ler[address] Soria 1 week Discharge took more than 35 minutes, to include final examination, discussion of admission, and preparation of prescriptions, instructions for ongoing care, follow up and dictation of summary. Signed: VIKRAM CHANDRA MD, [facility] 04/15/2012 12:26 PM documented in this enc ounter Medications at [...] as of this encounter Progress Notes Cee Transaction, Provider Unknown - 04/15/2012 12:11 PM PDTFormatting of this note m ight be different from the original. Progress Notes by Devaughn Flores RN at 04/15/121210 Author: Devaughn Flores RN Service: (none) Author Type: Registered Nurse Filed: 04/15/121210 Date of Service: 04/15/121210 Status: Signed Economic Development Coordinator: Devaughn Flores RN (Registered Nurse) Took over care from Kristi DYE Cosmo Lang MD - 04/15/2012 11:21 AM PDTFormatting of this note might be different from the or iginal. Progress Notes by Cosmo Soria MD at 04/15/12 1121 Author: Cosmo Soria MD Service: Nephrology Author Type: Physician Filed: 04/16/12 0902 Date of Service: 04/15/121120 Status: Signed Economic Development Coordinator: Cosmo Soria MD (Physician) PCP is Ashly Quick MD, MD LOS: 13 days Carol Potter is a 47 y.o. male who is being followed for TIFFANIE associated with hyperkalemia in t he setting of DM2/HTN/recreational drug user/rhabdomyolysis. He is s/p diagnostic kidney biopsy which shows advanced fibrotic changes with little chance of recovery. Specifically AIN is not demonstrated. Interval history: He was seen with his 04/11/2012. Carol Potter says that he feels OK today. He has been afebrile last 24 hrs. ROS: No fever, chills sweats. No nausea, vomiting. No rashes or pruritis. No oral pain. ROS: As in History of Present Illness. 7 area ROS was done and was otherwise negative. Examination: Constitutional: He is sitting comfortably in chair.. HEENT: Neck supple, no JVD, non icteric sclera. Cardiovascular: S1soft. S2 split not appreciated. No friction rub. No S3. No murmur. LUNGS:: Clear breath sounds bilaterally, no wheezes and no rales. Abdominal: SoftNo distension and no mass. There is no rebound tenderness and no guarding. Tender hepatomegaly felt. Musculoskeletal: No gross deformity, EXT: B/L LE edema with chronic venous changes. He also has left UE edema. Neurological: No gross focal motor neurologic deficits. Skin: Skin is warm and dry. Multiple bullous lesions all over his body Lines: Right IJ Cuffed catheter in situ. Newman catheter in situ with clear urine. Left UE PICC line in situ. CASE: [id number] PATIENT: CAROL POTTER Surgical Pathology Report PATHOLOGIC DIAGNOSIS: KIDNEY, NEEDLE CORE BIOPSY: - SEVERE NODULAR AND GLOBAL GLOMERULOSCLEROSIS CONSISTENT WITH DIABETIC NEPHROPATHY. - HYPERTENSIVE VASCULAR CHANGES. - SEVERE TUBULAR ATROPHY AND INTERSTITIAL FIBROSIS IMMUNOFLUORESCENCE MICROSCOPY: Direct immunofluorescence is performed on frozen tissue showing 12-13 partially sclerosed o r completely sclerosed glomeruli. Immunofluorescence for IgG is negative. IgM shows 1+ rocio ing. IgA, fibrinogen, albumin, kappa, and lambda are all negative. C3 and C1q show nonspecific trapping. This immunofluorescence pattern is compatible with diabetic nephropat hy and is negative. MICROSCOPIC EXAMINATION: Sections show approximately 10-12 glomeruli, all of which show complete or nodular sclerosi s. None of the glomeruli show crescent formation or proliferative changes. No fibrinoid necr osis is seen. The interstitium shows 75% interstitial fibrosis with marked tubular atrophy. Blood vessels show hypertensive vascular changes. PAS, Lentz and Trichrome stains support the his tologic findings. No significant interstitial chronic inflammation is present. No vasculitis is identified. The histologic features are compatible with fairly end-stage renal disease, consistent with hypertension and diabetic origin. [place] Red and Thioflavin-T stains performed on the kidney biopsy for amyloid are both negat home. There is no change in the diagnosis. Imaging 2 D echo R/O ENDOCARDITIS CONCLUSIONS 1. Mild Degenerative Valvular Heart Disease. Aortic valve mildly sclerotic, no /AI. Wilson ral, Tricuspid, and Pulmonic valves grossly NML. Mild MR, mild TR. 2. Mild concentric LVH, systolic function low NML, Grade II diastolic abnormality, LVEF 50-55%. RV mildly enlarged, systolic function preserved. Moderate LAE. Mild GREGORIO. 3. Small Pericardial effusion, no ta mponade. 4. No obvious masses or vegetation, however, cannot R/O endocarditis. FINDINGS Degenerative Valvular Heart Disease. ECG rhythm: Sinus rhythm. Study: A 2-dimensional transthoracic echocardiogram with m-mode, spectral and color flow Do ppler was perfomed. Study: This was a technically adequate study. Left Ventricle: Overall left ventricular systolic function is low-normal with, an EF betwee n 50 - 55 %. CT LEFT FOREARM WITH CONTRAST 04/13/2012 IMPRESSION: 1. Diffuse subcutaneous edema of the forearm and dorsal subcutaneous edema of the hand and wrist. 2. No subcutaneous fluid collection. 3. No intramuscular fluid collection or obvious muscular edema or hemorrhage. CT ABDOMEN AND PELVIS WITH CONTRAST 04/13/2012 IMPRESSION: 1. Medium pleural effusions with minor overlying atelectasis. 2. Pericardial effusion. 3. Trace ascites. Renal USG. FINDINGS: Right kidney measures 9.5 by 5.3 x 4 .9 cm, and the left kidney measures 10.6 by 5.0 by 5.9 cm. Both kidneys appear unremarkable. No hydronephrosis. Urinary bladder is empty, with a Newman catheter in place. Ureteral jets are not seen. IMPRESSION: 1. Unremarkable appearance of the kidneys. 2. Empty urinary bladder with a Newman catheter in place. CASE: [id number] PATIENT: CAROL POTTER Surgical Pathology Report PATHOLOGIC DIAGNOSIS: SKIN, RIGHT CHEST WALL, PUNCH BIOPSY: - SUBCORNEAL PUSTULE IN THE VICINITY OF HAIR FOLLICLE. - SEE COMMENT. COMMENT: Differential diagnosis includes acute suppurative folliculitis versus a perforating disorder; however, the lesion itself is cut through and hence I cannot definitively assess for a perforating disorder on the special stains. There is no evidence of a vasculitis or malignancy. Clinical correlation is recommended. Scheduled Medications potassium chloride 10 mEq Oral BID WC DISCONTD: amlodipine 10 mg Oral Daily DISCONTD: calcitRIOL 0.25 mcg Oral Daily DISCONTD: calcium acetate 1,334 mg Oral TID WC DISCONTD: calcium carbonate 1,000 mg Oral Q8H DISCONTD: carbamazepine 200 mg Oral TID DISCONTD: ceftriaxone 2 g Intravenous Q24H DISCONTD: clindamycin 600 mg Intravenous Q8H DISCONTD: epoetin alena 10,000 Units Intravenous QMWF DISCONTD: ergocalciferol 50,000 Units Oral Weekly DISCONTD: escitalopram 5 mg Oral Daily DISCONTD: famotidine 20 mg Intravenous Daily DISCONTD: famotidine 20 mg Oral Daily DISCONTD: heparin (porcine) 1,000 Units Intravenous QMWF DISCONTD: heparin (porcine) 500 Units Intravenous QMWF DISCONTD: insulin aspart 0-14 Units Subcutaneous TID AC DISCONTD: insulin aspart 0-7 Units Subcutaneous Nightly DISCONTD: levothyroxine 25 mcg Oral QAM AC DISCONTD: metoprolol 100 mg Oral BID DISCONTD: pregabalin 25 mg Oral Daily Continuous Infusions DISCONTD: dextrose PRN Medications DISCONTD: acetaminophen, DISCONTD: acetaminophen, DISCONTD: albumin human, DISCONTD: albumi n human, DISCONTD: albumin human, DISCONTD: albuterol, DISCONTD: calamine, DISCONTD: dextros e, DISCONTD: dextrose, DISCONTD: dextrose, DISCONTD: fentaNYL, DISCONTD: fentaNYL, DISCONTD: glucagon, DISCONTD: glucagon, DISCONTD: hydrALAZINE, DISCONTD: hydrocodone-acetaminophen, D ISCONTD: hydrocodone-acetaminophen, DISCONTD: hydrOXYzine, DISCONTD: insulin aspart DISCONTD: iopamidol, DISCONTD: lidocaine, DISCONTD: lorazepam, DISCONTD: mineral oil-hydrop hilic petrolatum, DISCONTD: ondansetron, DISCONTD: ondansetron, DISCONTD: polyethylene glyco l, DISCONTD: sodium bicarbonate buffer, DISCONTD: sodium chloride, DISCONTD: sodium chloride , DISCONTD: sodium chloride Allergy: Allergies Allergen Reactions Penicillins Other (See Comments) unknown Lab Results Component Value Date BUN 25 04/15/2012 CREATININE 4.80* 04/15/2012 EGFR 14* 04/15/2012 NA 132* 04/15/2012 K 3.4* 04/15/2012 CL 98* 04/15/2012 CO2 24 04/15/2012 CA 7.0* 04/15/2012 PHOS 4.2 04/07/2012 MG 1.7 04/07/2012 ALB 1.7* 04/15/2012 HGB 8.5* 04/14/2012 Component Value Date/Time CREATININE 4.80* 04/15/2012 0440 CREATININE 5.90* 04/14/2012 0424 CREATININE 5.06* 04/13/2012 0451 CREATININE 6.19* 04/12/2012 0516 CREATININE 7.32* 04/11/2012 0220 CREATININE 9.68* 04/10/2012 0435 CREATININE 9.37* 04/09/2012 0507 CREATININE 9.28* 04/08/2012 0530 CREATININE 9.66* 04/07/2012 0530 CREATININE 10.61* 04/06/2012 0520 Component Value Date/Time BUN 25 04/15/2012 0440 BUN 38* 04/14/2012 0424 BUN 33* 04/13/2012 0451 BUN 49* 04/12/2012 0516 BUN 72* 04/11/2012 0220 BUN 104* 04/10/2012 0435 BUN 97* 04/09/2012 0507 BUN 91* 04/08/2012 0530 BUN 88* 04/07/2012 0530 BUN 93* 04/06/2012 0520 Blood cultures: 04/10/2012 MSSA 04/11/2012 Staph aureus 04/12/2012 G + cocci 04/13/2012: Negative so far Vital Signs: BP 190/104 | Pulse 69 | Temp(Src) 97.7 F (36.5 C) (Oral) | Resp 16 | Ht 1.702 m (5' 7") | Wt 99.7 kg (219 lb 12.8 oz) | BMI 34.43 kg/m2 | SpO2 100% I&O Detailed Table: I/O last 3 completed shifts: In: 3000 [P.O.:1800; Other:1200] Out: 5325 [Urine:125; Other:4200; Stool:1000] Weight change: Hemodynamics Last 24hrs: Active Problems: Type II or unspecified type diabetes mellitus without mention of complication, not stated as uncontrolled Amphetamine and other psychostimulant dependence, continuous Anemia Rash and nonspecific skin eruption Vitamin d deficiency Secondary hyperparathyroidism (of renal origin) Eczema herpeticum Hypoalbuminemia MSSA (methicillin susceptible Staphylococcus aureus) infection Diabetes mellitus with ESRD (end-stage renal disease) Hyponatremia Hypokalemia Hypothyroidism Obesity (BMI 30-39.9) Assessment and Recommendations: TIFFANIE: Mr. Potter is a 47 y.o. male patient with TIFFANIE with hyperkalemia (likely on basis of advanced i nterstitial fibrosis/vascular disease based on prelim kidney biopsy report) further complica gela by rhabdomyolysis and recreational drug use. He is s/p first HD session 04/10/2012. RENAL FUNCTION: Possibly dialysis dependent VOLUME STATUS: Volume overloaded. HD timeline: 04/10/2012: 3 L UF 04/11/2012: 3 L UF 04/12/2012: 2 L UF 04/14/2012: 3 L Kidney biopsy shows advanced glomeruloscloerosis/fibrosis with no reversible factors isolat ed. It is likely he will remain dialysis dependent. At this time he has cuffed right IJ HD catheter and we would use that. Kidney biopsy shows ESRD and he would need maintenance HD. Plan of care was discussed with Dr. Anthony (HD coordinator). He would need to be set up for maintenance HD at [place] under Dr. Timmons. BP: Better controlled. However he has just started HD and we would need to adjust antihypertens home medications based on UF. Continue CCB/BB for now. Severe anemia: LDH is minimally high. S Momo is normal. Hemolytic anemia is less likely. There is on obvious bleeding source. I would use ANAYA to keep target Hb between 10 to 11. CKD-MBD: Vitamin D deficiency: Secondary hyperparathyroidism: Vitamin D level is low and has been replaced. Electrolytes/Acid base balance: Hyperkalemia (resolved) Severe metabolic acidosis (resolved) Hyperphosphatemia: Hyponatremia: Continue PO4 binders (calcium based given hypocalcemia) and PO restricted diet. I would replace K PO to keep between 4 to 4.5 to prevent weakness. Hyponatremia likely reflects volume overload and I would perform UF to achieve optimal BP a nd volume. Malnutrition: He is profoundly malnourished in the setting of acute illness and will require aggressive n utritionist support with 1 gm/kg protein diet. Ongoing sepsis with bacteremia: 2 D echo is negative for endocarditis. CT abdomen/pelvis/left UE is negative for obvious source of bacteremia. I had a long discussion with infectious diseases specialist and plan would be to give him 6 weeks of vancomycin, 750 mg IV piggyback Postdialysis. Skin biopsy shows suppurative folliculitis which is the likely source of bacteremia. Diet should be 1 gm/kg protein, 1 gm PO4, 2 gm Na, and 2 gm K restricted diet. All medications should be dosed for an eGFR of less than 15 ml/min/1.73 m2. NSAIDs (including ADAM 2 inhibitors) should not be used. Magnesium and aluminum containing antacids should not be used. Magnesium or phosphorus containing laxatives should not be used. Fluid should be restricted to less than 1.5 L in a 24 hr period. I/O should be monitored strictly. Daily weights should be done. Plan of care was discussed with Dr. Lerner. This was a counseling dominated session with 36 minutes involved in coordination of care [facility] primary care provider and ID. Plan of care was understood and verbalized back. COSMO SORIA MD 04/16/2012 Elsie Hsu - 04/15/2012 10:51 AM PDT Progress Notes by Elsie Lerner MD at 04/15/12 1051 Author: Elsie Lerner MD Service: (none) Author Type: Physician Filed: 04/15/12 1142 Date of Service: 04/15/12 1051 Status: Signed Economic Development Coordinator: Elsie Lerner MD (Physician) [facility] Service: Infectious Disease Progress Note Hospital Day: LOS: 13 days Post-Op Day: * No surgery found * SUBJECTIVE Patient Summary: 38-year-old male presents with rash, renal failure, rhabdomyolysis, epistaxis, without fevers. There was initial concern for hemoptysis although this consisted of throat clearing during an episode of epistaxis, with no respiratory symptoms and normal c hest x-ray. Airborne isolation was discontinued. He has not received any antibiotics. ID con stan was requested of her concern about his skin rashes and possible underlying infection. T esting for HIV, syphilis and blood cultures all negative. Whole blood tuberculosis screen is also negative. Events Overnight: Patient states that he is feeling well with no fever, chills or swe ats. He has mild discomfort at the RUE where he had the infected IV. He has no chest pains , dyspnea, cough, diarrhea, nausea or vomiting. Anticipating going home possibly today. Scheduled Medications amlodipine 10 mg Oral Daily calcitRIOL 0.25 mcg Oral Daily calcium acetate 1,334 mg Oral TID WC calcium carbonate 1,000 mg Oral Q8H carbamazepine 200 mg Oral TID ceftriaxone 2 g Intravenous Q24H clindamycin 600 mg Intravenous Q8H epoetin alena 10,000 Units Intravenous QMWF ergocalciferol 50,000 Units Oral Weekly escitalopram 5 mg Oral Daily famotidine 20 mg Oral Daily Or famotidine 20 mg Intravenous Daily heparin (porcine) Intracatheter Once in dialysis heparin (porcine) 1,000 Units Intravenous QMWF heparin (porcine) 500 Units Intravenous QMWF insulin aspart 0-14 Units Subcutaneous TID AC insulin aspart 0-7 Units Subcutaneous Nightly levothyroxine 25 mcg Oral QAM AC metoprolol 100 mg Oral BID potassium chloride 10 mEq Oral BID WC pregabalin 25 mg Oral Daily Continuous Infusions dextrose PRN Medications acetaminophen, acetaminophen, albumin human, albumin human, albumin human, albuterol, calam ine, dextrose, dextrose, dextrose, fentaNYL, fentaNYL, glucagon, glucagon, hydrALAZINE, hydr ocodone-acetaminophen, hydrocodone-acetaminophen, hydrOXYzine, insulin aspart, iopamidol, li docaine, lorazepam, mineral oil-hydrophilic petrolatum, ondansetron, ondansetron, polyethyle ne glycol, sodium bicarbonate buffer, sodium chloride, sodium chloride sodium chloride OBJECTIVE Vital Signs: BP 167/81 | Pulse 77 | Temp(Src) 98.7 F (37.1 C) (Oral) | Resp 16 | Ht 1.702 m (5' 7") | Wt 99.7 kg (219 lb 12.8 oz) | BMI 34.43 kg/m2 | SpO2 99% Temp: [98 F (36.7 C)-98.7 F (37.1 C)] 98.7 F (37.1 C) (04/15 726) BP: (125-209)/(59-92) 167/81 mmHg (04/15 726) Heart Rate: [69-83] 77 (04/15 726) Resp: [16-20] 16 (04/15 726) SpO2: [99 %-100 %] 99 % (04/15 726) Weight: [99.7 kg (219 lb 12.8 oz)-104.5 kg (230 lb 6.1 oz)] 99.7 kg (219 lb 12.8 oz) (03/25 3 0421) Physical Exam Vitals reviewed. Constitutional: He appears well-nourished. No distress. Sitting comfortably in chair. HENT: Head: Normocephalic. Mouth/Throat: Oropharynx is clear and moist. Eyes: Conjunctivae are normal. No scleral icterus. Neck: Neck supple. Cardiovascular: Normal rate and regular rhythm. Pulmonary/Chest: No respiratory distress. He has no wheezes. He has no rales. He exhibits n o tenderness. R IJ tunneled HD catheter site is benign Abdominal: Soft. Bowel sounds are normal. Musculoskeletal: He exhibits edema. He exhibits no tenderness. Lymphadenopathy: He has no cervical adenopathy. Neurological: He is alert. No cranial nerve deficit. He exhibits normal muscle tone. Skin: He is not diaphoretic. Papulonodular lesions at lower extremities; cream applied to lower extremities. Papul ar lesions at upper extremities. LUE PICC at [facility]. There is a small ulcer with yel low necrotic tissue at right antecubital area. There is some induration but no underlying f luctuance or pus that could be expressed. There is a non-infected small ulcer at his right heel. Psychiatric: Thought content normal. DATA CBC: Lab Results Component Value Date WBC 10.4 04/14/2012 RBC 2.73* 04/14/2012 HGB 8.5* 04/14/2012 HCT 24.7* 04/14/2012 MCV 90.2 04/14/2012 MCH 31.0 04/14/2012 MCHC 34.3 04/14/2012 RDW 48.1 04/14/2012 PLT 249 04/14/2012 MPV 7.4 04/14/2012 DIFFTYPE AUTOMATED 04/14/2012 WBC: Lab Results Component Value Date WBC 10.4 04/14/2012 NEUTABSMAN 12.7* 04/13/2012 NEUTROABS 7.5* 04/14/2012 NEUTROMAN 74 04/13/2012 LYMPHOABS 1.6 04/13/2012 LYMPHOMAN 9* 04/13/2012 LYMPHSABS 0.8* 04/14/2012 LYMPHOPCT 7.2* 04/14/2012 MONOABSMAN 1.4* 04/13/2012 MONOMAN 8 04/13/2012 MONOPCT 9.9 04/14/2012 EOSINOABS 1.6* 04/13/2012 EOSINOMAN 9* 04/13/2012 EOSABS 1.1* 04/14/2012 EOSPCT 10.3* 04/14/2012 BASOSABS 0.1 04/14/2012 BASOPCT 1.1 04/14/2012 PLTEST ADEQUATE 04/13/2012 RBCMORPH NORMAL RBC MORPH 04/13/2012 COMDIFF FIBRIN STRANDS SEEN ON SMEAR REVIEW 04/13/2012 CMP: Lab Results Component Value Date NA 132* 04/15/2012 K 3.4* 04/15/2012 CL 98* 04/15/2012 CO2 24 04/15/2012 ANIONGAP 14 04/15/2012 GLUF 124* 04/15/2012 BUN 25 04/15/2012 CREATININE 4.80* 04/15/2012 BCR 5 04/15/2012 CA 7.0* 04/15/2012 CA 6.1* 04/02/2012 PROT 5.3* 04/15/2012 ALB 1.7* 04/15/2012 GLOB 3.6 04/15/2012 BILITOT 0.2 04/15/2012 ALP 116* 04/15/2012 AST 28 04/15/2012 ALT 30 04/15/2012 EGFR 14* 04/15/2012 ALLIE: Lab Results Component Value Date LABANTI NEGATIVE 04/12/2012 LABANTI NEGATIVE 04/11/2012 Echo cardiac adult complete [[id number]] Status: Edited Result - FINAL Study Result Patient Name: CAROL POTTER Date of : 1965 Performing Physician: Giovany Everett MD ------REPORT ADDENDED------ INDICATIONS R/O ENDOCARDITIS CONCLUSIONS 1. Mild Degenerative Valvular Heart Disease. Aortic valve mildly sclerotic, no /AI. Wilson ral, Tricuspid, and Pulmonic valves grossly NML. Mild MR, mild TR. 2. Mild concentric LVH, systolic function low NML, Grade II diastolic abnormality, LVEF 50-55%. RV mildly enlarged, systolic function preserved. Moderate LAE. Mild GREGORIO. 3. Small Pericardial effusion, no ta mponade. 4. No obvious masses or vegetation, however, cannot R/O endocarditis. HSV I/II IgG, HSV IgM Abnormal Status: Final result MyChart: Not Released Value Flag Range HSV I AB,IGG 7.91 H <0.90 IV Comments: >1.10 POSITIVE: IGG AB TO HSV TYPE I GLYCOPROTEIN G DETECTED. MAY INDICATE A RECENT OR PAST INFECTION. Testing performed at [facility], [address] [place] [address] HSV II AB,IGG 0.35 <0.90 IV Comments: <0.90 NEGATIVE: NO SIGNIFICANT LEVEL OF DETECTABLE IGG AB TO HSV TYPE II GLYCOPROTEIN G. HSV TYPE SPECIFIC ANTIBODIES TO GLYCOPROTEINS GG 1 OR GG 2 MAY NOT BE DETECTED IN THE EARLY STAGES OF HSV INFECTION AND SOME INDIVIDUALS MAY BE INFECTED WITH A GLYCOPROTEIN G DEFICIENT HSV VIRUS. IN SUCH CASES, ANTIBODY DETECTION MAY REQUIRE TESTING WITH A NON TYPE SPECIFIC ASSAY. THIS TEST WAS PERFORMED WITH HERPESELECT HSV TYPE SPECIFIC ASSAYS THAT UTILIZE HSV I GLYCOPROTEIN GG 1 OR HSV II GG2 RECOMBINANT ANTIGENS. Testing performed at [facility], [address] [address] HSV, IGM 0.79 <0.91 OD RATIO Comments: <0.91 NEGATIVE: NO CLINICALLY SIGNIFICANT LEVEL OF HSV IGM ANTIBODIES DETECTED. DUE TO THE CROSS REACTIVITY BETWEEN HSV 1 AND HSV 2 IGM ANTIBODIES, THIS ASSAY CANNOT DISCRIMINATE BETWEEN THEM AND MEASURES HSV TYPE 1 AND TYPE 2 COMBINED IGM ANTIBODIES. Testing performed at [facility], [address] [address] Lab Flowsheet Order Details View Encounter Lab and Collection Details Routing Result History Specimen Collected: 04/06/12 3:45 PM Last Resulted: 04/08/12 12:12 PM Encounter View Encounter Result Information Abnormal Status: Final result (04/08/2012 12:12 PM) Provider Status: Ordered Microbiology Results (last 14 days) Procedure Component Value Units Date/Time Blood culture, 2 of 2 [[id number]] (Abnormal) Collected:04/12/12 1231 Order Status:Completed Updated:04/15/12946 Specimen Information:Blood Specimen Description BLOOD, PERIPHERAL DRAW Specimen Description Result: Testing performed at [facility];[address] [place] [address] SPECIAL REQUESTS L WRIST SPECIAL REQUESTS Result: Testing performed at [facility];[address] [place] [address]10 GRAM STAIN Result: GRAM POSITIVE COCCI SEEN ON GRAM STAIN FROM AEROBIC BOTTLE SMEAR RESULTS CALLED TO AND READ BACK BY: SOULEYMANE Levine IN 4RP AT 0732 ON [id number] BY CRK GRAM STAIN GRAM POSITIVE COCCI IN CLUSTERS GRAM STAIN Result: CALLED RESULTS TO BEST Tan ON 4RP AT 1140 ON 04/14/12 [facility] RESULTS REPEATED GRAM STAIN Result: Testing performed at [facility];[address] [place] [address] 67683 CULTURE STAPHYLOCOCCUS AUREUS (A) CULTURE GROWTH IN TWO OF TWO BOTTLES (A) CULTURE TIME TO DETECTION: 0.71 DAYS CULTURE Result: Testing performed at [facility], [address] [place] [address] REPORT STATUS 04/15/2012 FINAL Organism STAPHYLOCOCCUS AUREUS Culture & Susceptibility STAPHYLOCOCCUS AUREUS Antibiotic Sensitivity Microscan Status Gentamicin Sensitive SUSCEPTIBLE Final Method: TERRANCE Moxifloxacin Sensitive SUSCEPTIBLE Final Method: TERRANCE Oxacillin Sensitive SUSCEPTIBLE Final Method: TERRANCE Penicillin G Resistant RESISTANT Final Method: TERRANCE Tetracycline Sensitive SUSCEPTIBLE Final Method: TERRANCE Trimethoprim + Sulfamethoxazole Sensitive SUSCEPTIBLE Final Method: TERRANCE Vancomycin Sensitive SUSCEPTIBLE Final Method: TERRANCE Comments STAPHYLOCOCCUS AUREUS (TERRANCE) STAPHYLOCOCCUS AUREUS Blood culture, 1 of 2 [[id number]] (Abnormal) Collected:04/12/12 1200 Order Status:Completed Updated:04/15/12946 Specimen Information:Blood Specimen Description BLOOD, LINE DRAW Specimen Description Result: Testing performed at [facility];[address] [place] [address] SPECIAL REQUESTS ART SPECIAL REQUESTS Result: Testing performed at [facility];[address] [place] [address] 29636 GRAM STAIN Result: GRAM POSITIVE COCCI SEEN ON GRAM STAIN FROM AEROBIC BOTTLE SMEAR RESULTS CALLED TO AND READ BACK BY: DEIDRE Mccullough IN 4RP AT 0611 ON [id number] BY K GRAM STAIN Result: Testing performed at [facility];[address] [place] [address] CULTURE STAPHYLOCOCCUS AUREUS (A) CULTURE GROWTH IN ONE OF TWO BOTTLES (A) CULTURE TIME TO DETECTION: 0.65 DAYS CULTURE Result: Testing performed at [facility], [address] [place] [address] REPORT STATUS 04/15/2012 FINAL Organism STAPHYLOCOCCUS AUREUS Culture & Susceptibility STAPHYLOCOCCUS AUREUS Antibiotic Sensitivity Microscan Status Gentamicin Sensitive SUSCEPTIBLE Final Method: TERRANCE Moxifloxacin Sensitive SUSCEPTIBLE Final Method: TERRANCE Oxacillin Sensitive SUSCEPTIBLE Final Method: TERRANCE Penicillin G Resistant RESISTANT Final Method: TERRANCE Tetracycline Sensitive SUSCEPTIBLE Final Method: TERRANCE Trimethoprim + Sulfamethoxazole Sensitive SUSCEPTIBLE Final Method: TERRANCE Vancomycin Sensitive SUSCEPTIBLE Final Method: TERRANCE Comments STAPHYLOCOCCUS AUREUS (TERRANCE) STAPHYLOCOCCUS AUREUS Blood culture [[id number]] (Abnormal) Collected:04/11/12 0217 Order Status:Completed Updated:04/15/12940 Specimen Information:Blood Specimen Description BLOOD, PERIPHERAL DRAW Specimen Description Result: Testing performed at [facility];[address] [place] [address] 634[address] SPECIAL REQUESTS RHAND SPECIAL REQUESTS Result: Testing performed at [facility];[address] [place] [address] 96782 GRAM STAIN Result: GRAM POSITIVE COCCI IN CLUSTERS SEEN IN AEROBIC BOTTLE SMEAR RESULTS CALLED TO AND READ BACK BY: DAVID Díaz/4RP 1921 JCM (A) GRAM STAIN Result: GRAM POSITIVE COCCI IN CLUSTERS SEEN ON SMEAR OF ANAEROBIC BOTTLE GRAM STAIN Result: CALLED TO 4RP/DAVID Díaz ON 04/14/12 AT 0657 BY LL READBACK GRAM STAIN Result: Testing performed at [facility];[address] [place] [address] 50282 CULTURE STAPHYLOCOCCUS AUREUS (A) CULTURE TIME TO DETECTION: 0.67 DAYS CULTURE GROWTH IN TWO OF TWO BOTTLES (A) CULTURE Result: VANCOMYCIN TERRANCE IS LESS THAN OR EQUAL TO 0.5 Mcg/mL CULTURE Result: Testing performed at [address] [address] REPORT STATUS 04/15/2012 FINAL Organism STAPHYLOCOCCUS AUREUS Culture & Susceptibility STAPHYLOCOCCUS AUREUS Antibiotic Sensitivity Microscan Status Gentamicin Sensitive SUSCEPTIBLE Final Method: TERRANCE Moxifloxacin Sensitive SUSCEPTIBLE Final Method: TERRANCE Oxacillin Sensitive SUSCEPTIBLE Final Method: TERRANCE Penicillin G Resistant RESISTANT Final Method: TERRANCE Tetracycline Sensitive SUSCEPTIBLE Final Method: TERRANCE Trimethoprim + Sulfamethoxazole Sensitive SUSCEPTIBLE Final Method: TERRANCE Vancomycin Sensitive SUSCEPTIBLE Final Method: TERRANCE Comments STAPHYLOCOCCUS AUREUS (TERRANCE) STAPHYLOCOCCUS AUREUS Blood culture, 1 of 2 [[id number]] (Abnormal) Collected:04/10/121531 Order Status:Completed Updated:04/15/12937 Specimen Information:Blood Specimen Description BLOOD, PERIPHERAL DRAW Specimen Description Result: Testing performed at [facility];[address] [place] [address] SPECIAL REQUESTS LAC SPECIAL REQUESTS Result: Testing performed at [facility];[address] [place] [address] 84163 GRAM STAIN Result: GRAM POSITIVE COCCI SEEN ON GRAM STAIN FROM AEROBIC AND ANAEROBIC BOTTLES SMEAR RESULTS CALLED TO AND READ BACK BY: LINDA Mccullough IN P AT 1340 ON [id number] BY CRK GRAM STAIN Result: Testing performed at [facility];[address] [place] [address] CULTURE STAPHYLOCOCCUS AUREUS (A) CULTURE STREPTOCOCCUS ANGINOSUS (A) CULTURE TIME TO DETECTION: 0.85 DAYS CULTURE GROWTH IN TWO OF TWO BOTTLES (A) CULTURE Result: Testing performed at [address] [address] REPORT STATUS 04/15/2012 FINAL Organism STAPHYLOCOCCUS AUREUS Organism STREPTOCOCCUS ANGINOSUS Culture & Susceptibility STAPHYLOCOCCUS AUREUS Antibiotic Sensitivity Microscan Status Gentamicin Sensitive SUSCEPTIBLE Final Method: TERRANCE Moxifloxacin Sensitive SUSCEPTIBLE Final Method: TERRANCE Oxacillin Sensitive SUSCEPTIBLE Final Method: TERRANCE Penicillin G Resistant RESISTANT Final Method: TERRANCE Tetracycline Sensitive SUSCEPTIBLE Final Method: TERRANCE Trimethoprim + Sulfamethoxazole Sensitive SUSCEPTIBLE Final Method: TERRANCE Vancomycin Sensitive SUSCEPTIBLE Final Method: TERRANCE Comments STAPHYLOCOCCUS AUREUS (TERRANCE) STAPHYLOCOCCUS AUREUS STREPTOCOCCUS ANGINOSUS Antibiotic Sensitivity Microscan Status Levofloxacin Sensitive SUSCEPTIBLE Final Method: TERRANCE Penicillin G Sensitive SUSCEPTIBLE Final Method: TERRANCE Vancomycin Sensitive SUSCEPTIBLE Final Method: TERRANCE Comments STREPTOCOCCUS ANGINOSUS (TERRANCE) STREPTOCOCCUS ANGINOSUS Fecal occult blood (in house) [[id number]] (Abnormal) Collected:04/15/12 0608 Order Status:Completed Updated:04/15/1236 Specimen Information:Stool Fecal Occult Blood POSITIVE (A) Comment: Testing performed at [facility];[address] [place] [address];[place] [address] Fecal occult blood (in house) [[id number]] (Abnormal) Collected:04/14/122049 Order Status:Completed Updated:04/14/122114 Specimen Information:Stool Fecal Occult Blood POSITIVE (A) Comment: Testing performed at [facility];[address] [place] [address] 21909 Blood culture, 2 of 2 [[id number]] Collected:04/13/12 1115 Order Status:Completed Updated:04/14/12654 Specimen Information:Blood Specimen Description BLOOD, PERIPHERAL DRAW Specimen Description Result: Testing performed at [facility];[address] [place] [address];[place] [address] SPECIAL REQUESTS L WRIST SPECIAL REQUESTS Result: Testing performed at [facility];[address] [place] [address] CULTURE NO GROWTH AT THIS TIME CULTURE Result: Testing performed at [facility];[address] [place] [address] REPORT STATUS PENDING Blood culture, 1 of 2 [[id number]] Collected:04/13/12 1109 Order Status:Completed Updated:04/14/12654 Specimen Information:Blood Specimen Description BLOOD, PERIPHERAL DRAW Specimen Description Result: Testing performed at [facility];[address] [place] [address];[place] [address] SPECIAL REQUESTS L ARM SPECIAL REQUESTS Result: Testing performed at [facility];[address] [place] [address] CULTURE NO GROWTH AT THIS TIME CULTURE Result: Testing performed at [facility];[address] [place] [address] 30022 REPORT STATUS PENDING Blood culture, 2 of 2 [[id number]] (Abnormal) Collected:04/10/12 1542 Order Status:Completed Updated:04/13/12 0732 Specimen Information:Blood Specimen Description BLOOD, PERIPHERAL DRAW Specimen Description Result: Testing performed at [facility];[address] [place] [address] 85881 SPECIAL REQUESTS RAC SPECIAL REQUESTS Result: Testing performed at [facility];[address] [place] [address] 86935 GRAM STAIN Result: GRAM POSITIVE COCCI IN CLUSTERS SEEN ON SMEAR FROM AEROBIC BOTTLE (A) GRAM STAIN Result: SMEAR RESULTS CALLED TO AND READ BACK BY: YAZMIN DUNCAN, 04/10/12 AT 2356 BY GRAM STAIN Result: Testing performed at [facility];[address] [place] [address] 88864 CULTURE STAPHYLOCOCCUS AUREUS (A) CULTURE GROWTH IN ONE OF TWO BOTTLES (A) CULTURE TIME TO DETECTION: 0.31 DAYS CULTURE VANCOMYCIN TERRANCE IS EQUAL TO ONE. CULTURE Result: Testing performed at [address] [address] REPORT STATUS 04/13/2012 FINAL Organism STAPHYLOCOCCUS AUREUS Culture & Susceptibility STAPHYLOCOCCUS AUREUS Antibiotic Sensitivity Microscan Status Gentamicin Sensitive SUSCEPTIBLE Final Method: TERRANCE Moxifloxacin Sensitive SUSCEPTIBLE Final Method: TERRANCE Oxacillin Sensitive SUSCEPTIBLE Final Method: TERRANCE Penicillin G Resistant RESISTANT Final Method: TERRANCE Tetracycline Sensitive SUSCEPTIBLE Final Method: TERRANCE Trimethoprim + Sulfamethoxazole Sensitive SUSCEPTIBLE Final Method: TERRANCE Vancomycin Sensitive SUSCEPTIBLE Final Method: TERRANCE Comments STAPHYLOCOCCUS AUREUS (TERRANCE) STAPHYLOCOCCUS AUREUS Culture, drain tube tip [[id number]] (Abnormal) Collected:04/10/12 1905 Order Status:Completed Updated:04/12/12 1136 Specimen Information:Other / Catheter Tip Specimen Description CATHETER TIP Specimen Description Result: Testing performed at [facility];[address] [place] [address] CULTURE >15 COLONIES STAPHYLOCOCCUS AUREUS (A) CULTURE Result: THIS S. AUREUS IS SUSCEPTIBLE TO METHICILLIN (A) CULTURE Result: Testing performed at [address] [address] REPORT STATUS 04/12/2012 FINAL AFB culture and smear [[id number]] Collected:04/03/12 1415 Order Status:Completed Updated:04/11/12 1251 Specimen Information:Sputum Specimen Description SPUTUM Specimen Description Result: Testing performed at [facility];[address] [place] [address] 85984 AFB STAIN NO ACID FAST BACILLI SEEN AFB STAIN Result: Testing performed at [address] [address] CULTURE NO GROWTH AT THIS TIME CULTURE Result: Testing performed at [facility], [address] [place] [address] REPORT STATUS PENDING Urine culture [[id number]] (Abnormal) Collected:04/07/12 1336 Order Status:Completed Updated:04/09/12 1356 Specimen Information:Urine Specimen Description URINE, COLLECTION NOT GIVEN Specimen Description Result: Testing performed at [facility];[address] [place] [address] 21411 CULTURE >100,000 CFU/ML STAPHYLOCOCCUS AUREUS (A) CULTURE Result: Testing performed at [facility], [address] [place] [address] REPORT STATUS 04/09/2012 FINAL Organism STAPHYLOCOCCUS AUREUS Culture & Susceptibility STAPHYLOCOCCUS AUREUS Antibiotic Sensitivity Microscan Status Gentamicin Sensitive SUSCEPTIBLE Final Method: TERRANCE Levofloxacin Sensitive SUSCEPTIBLE Final Method: TERRANCE Moxifloxacin Sensitive SUSCEPTIBLE Final Method: TERRANCE Nitrofurantoin Sensitive SUSCEPTIBLE Final Method: TERRANCE Oxacillin Sensitive SUSCEPTIBLE Final Method: TERRANCE Penicillin G Resistant RESISTANT Final Method: TERRANCE Tetracycline Sensitive SUSCEPTIBLE Final Method: TERRANCE Trimethoprim + Sulfamethoxazole Sensitive SUSCEPTIBLE Final Method: TERRANCE Vancomycin Sensitive SUSCEPTIBLE Final Method: TERRANCE Comments STAPHYLOCOCCUS AUREUS (TERRANCE) >100,000 CFU/ML STAPHYLOCOCCUS AUREUS Blood culture, 1 of 2 [[id number]] Collected:04/03/12 141 Order Status:Completed Updated:04/09/12701 Specimen Information:Blood Specimen Description BLOOD, PERIPHERAL DRAW Specimen Description Result: Testing performed at [facility];[address] [place] [address] SPECIAL REQUESTS LAC SPECIAL REQUESTS Result: Testing performed at [facility];[address] [place] [address] 46634 CULTURE NO GROWTH IN 5 DAYS. CULTURE Result: Testing performed at [facility];[address] [place] [address] REPORT STATUS 04/09/2012 FINAL Blood culture, 2 of 2 [[id number]] Collected:04/03/12 141 Order Status:Completed Updated:04/09/12701 Specimen Information:Blood Specimen Description BLOOD, PERIPHERAL DRAW Specimen Description Result: Testing performed at [facility];[address] [place] [address] SPECIAL REQUESTS RAC SPECIAL REQUESTS Result: Testing performed at [facility];[address] [place] [address] 08000 CULTURE NO GROWTH IN 5 DAYS. CULTURE Result: Testing performed at [facility];[address] [place] [address] REPORT STATUS 04/09/2012 FINAL Urine culture [[id number]] (Abnormal) Collected:04/06/12 0022 Order Status:Completed Updated:04/08/12 1505 Specimen Description URINE, COLLECTION NOT GIVEN Specimen Description Result: Testing performed at [facility];[address] [place] [address] 33021 CULTURE >100,000 CFU/ML STAPHYLOCOCCUS AUREUS (A) CULTURE Result: Testing performed at [facility], [address] [place] [address] REPORT STATUS 04/08/2012 FINAL Organism STAPHYLOCOCCUS AUREUS Culture & Susceptibility STAPHYLOCOCCUS AUREUS Antibiotic Sensitivity Microscan Status Gentamicin Sensitive SUSCEPTIBLE Final Method: TERRANCE Levofloxacin Sensitive SUSCEPTIBLE Final Method: TERRANCE Moxifloxacin Sensitive SUSCEPTIBLE Final Method: TERRANCE Nitrofurantoin Sensitive SUSCEPTIBLE Final Method: TERRANCE Oxacillin Sensitive SUSCEPTIBLE Final Method: TERRANCE Penicillin G Resistant RESISTANT Final Method: TERRANCE Tetracycline Sensitive SUSCEPTIBLE Final Method: TERRANCE Trimethoprim + Sulfamethoxazole Sensitive SUSCEPTIBLE Final Method: TERRANCE Vancomycin Sensitive SUSCEPTIBLE Final Method: TERRANCE Comments STAPHYLOCOCCUS AUREUS (TERRANCE) >100,000 CFU/ML STAPHYLOCOCCUS AUREUS Urine Culture [[id number]] Collected:04/02/12228 Order Status:Completed Updated:04/04/121954 Specimen Information:Urine Specimen Description CATHETERIZED URINE Specimen Description Result: Testing performed at [facility];[address] [place] [address] CULTURE NO GROWTH 2 DAYS CULTURE Result: Testing performed at [facility], [address] [place] [address] 14719 REPORT STATUS 04/04/2012 FINAL PROBLEM LIST Active Problems: Type II or unspecified type diabetes mellitus without mention of complication, not stated as uncontrolled Amphetamine and other psychostimulant dependence, continuous Anemia Rash and nonspecific skin eruption Vitamin d deficiency Secondary hyperparathyroidism (of renal origin) Hypothyroidism Eczema herpeticum Hypoalbuminemia MSSA (methicillin susceptible Staphylococcus aureus) infection Diabetes mellitus with ESRD (end-stage renal disease) Hyponatremia Obesity (BMI 30-39.9) ASSESSMENT & PLAN MSSA bacteremia with bacteriuria -most likely from infected IV that has now been removed or his multiple cutaneous lesions. TTE had been negative. 04/13 blood cultures have remained negative with another set sent earlier today. He is clinically stable at this time and Dr. Chandra is planning discharge lino e today. To facilitate IV antibiotic treatment on discharge, he will be put on IV vancomyci n 750 mg IV with dialysis. I am recommending 6 weeks of antibiotic Rx with the skin lesions and his new tunneled HD catheter. Plan on ID follow up in a week. Orders for antibiotics and laboratory tests are in the patient's chart. Discharge antibiotic plan discussed with Onelia Chandra, Dr. Soria and Social Work Skin Rash -Pathology report discussed with Dr. Isaac as suggestive of acquired perforating dermat osis that is typicall found in patients with kidney disease/dialysis. Await special stains (particularly for mycobacteria) on the Pathology specimen. The pathology specimen will also be reevaluated in [facility] -kidney biopsy shows advanced fibrotic changes with little chance of recovery. HD planned in the [place] area ID follow up in a week Code Status: Full Code ELSIE LERNER MD 04/15/2012 aranada, Elsie Rose - 04/14/2012 3:46 PM PDT Progress Notes by Elsie Lerner MD at 04/14/12 8786 Author: Elsie Lerner MD Service: (none) Author Type: Physician Filed: 04/14/12 0863 Date of Service: 04/14/12 4709 Status: Signed Economic Development Coordinator: Elsie Lerner MD (Physician) [facility] Service: Infectious Disease Progress Note Hospital Day: LOS: 12 days Post-Op Day: * No surgery found * SUBJECTIVE Patient Summary: 38-year-old male presents with rash, renal failure, rhabdomyolysis, epistaxis, without fevers. There was initial concern for hemoptysis although this consisted of throat clearing during an episode of epistaxis, with no respiratory symptoms and normal c hest x-ray. Airborne isolation was discontinued. He has not received any antibiotics. ID jose miguel stan was requested of her concern about his skin rashes and possible underlying infection. T esting for HIV, syphilis and blood cultures all negative. Whole blood tuberculosis screen is Also negative. Events Overnight: Denies pain at any of the skin lesions but admits to pruritus and p icking/scratching on his skin. Denies chills, sweats, chest pain or abdominal discomfort. No nausea, vomiting or diarrhea. Scheduled Medications amlodipine 10 mg Oral Daily calcitRIOL 0.25 mcg Oral Daily calcium acetate 1,334 mg Oral TID WC calcium carbonate 1,000 mg Oral Q8H carbamazepine 200 mg Oral TID ceftriaxone 2 g Intravenous Q24H clindamycin 600 mg Intravenous Q8H ergocalciferol 50,000 Units Oral Weekly escitalopram 5 mg Oral Daily famotidine 20 mg Oral Daily Or famotidine 20 mg Intravenous Daily insulin aspart 0-14 Units Subcutaneous TID AC insulin aspart 0-7 Units Subcutaneous Nightly levothyroxine 25 mcg Oral QAM AC metoprolol 100 mg Oral BID potassium chloride 10 mEq Oral BID WC pregabalin 25 mg Oral Daily Continuous Infusions dextrose PRN Medications acetaminophen, acetaminophen, albumin human, albumin human, albuterol, calamine, dextrose, dextrose, dextrose, diatrizoate meglumine-sodium, fentaNYL, fentaNYL, glucagon, glucagon, hy drALAZINE, hydrocodone-acetaminophen, hydrocodone-acetaminophen, hydrOXYzine, insulin aspart , iopamidol, iopamidol, lidocaine, lorazepam, mineral oil-hydrophilic petrolatum, ondansetro n, ondansetron, polyethylene glycol, sodium bicarbonate buffer, sodium chloride sodium chloride, sodium chloride OBJECTIVE Vital Signs: BP 134/74 | Pulse 74 | Temp(Src) 98.3 F (36.8 C) (Oral) | Resp 20 | Ht 1.702 m (5' 7") | Wt 97.6 kg (215 lb 2.7 oz) | BMI 33.70 kg/m2 | SpO2 100% Temp: [97.6 F (36.4 C)-98.3 F (36.8 C)] 98.3 F (36.8 C) (04/14 1149) BP: (114-152)/(64-84) 134/74 mmHg (04/14 1149) Heart Rate: [65-76] 74 (04/14 1149) Resp: [16-20] 20 (04/14 1149) SpO2: [99 %-100 %] 100 % (04/14 1149) Weight: [97.6 kg (215 lb 2.7 oz)] 97.6 kg (215 lb 2.7 oz) (04/14 040) Physical Exam Vitals reviewed. Constitutional: He appears well-nourished. No distress. Undergoing hemodialysis HENT: Head: Normocephalic. Mouth/Throat: Oropharynx is clear and moist. Eyes: Conjunctivae are normal. No scleral icterus. Neck: Neck supple. Cardiovascular: Normal rate and regular rhythm. Pulmonary/Chest: No respiratory distress. He has no wheezes. He has no rales. He exhibits n o tenderness. R IJ tunneled HD catheter Abdominal: Soft. Bowel sounds are normal. Musculoskeletal: He exhibits edema. He exhibits no tenderness. Lymphadenopathy: He has no cervical adenopathy. Neurological: He is alert. No cranial nerve deficit. He exhibits normal muscle tone. Skin: He is not diaphoretic. Bullous lesions at lower extremities; cream applied to lower extremities. Papular les ions at upper extremities. LUE PICC at [facility]. Psychiatric: Thought content normal. DATA CBC: Lab Results Component Value Date WBC 10.4 04/14/2012 RBC 2.73* 04/14/2012 HGB 8.5* 04/14/2012 HCT 24.7* 04/14/2012 MCV 90.2 04/14/2012 MCH 31.0 04/14/2012 MCHC 34.3 04/14/2012 RDW 48.1 04/14/2012 PLT 249 04/14/2012 MPV 7.4 04/14/2012 DIFFTYPE AUTOMATED 04/14/2012 WBC: Lab Results Component Value Date WBC 10.4 04/14/2012 NEUTABSMAN 12.7* 04/13/2012 NEUTROABS 7.5* 04/14/2012 NEUTROMAN 74 04/13/2012 LYMPHOABS 1.6 04/13/2012 LYMPHOMAN 9* 04/13/2012 LYMPHSABS 0.8* 04/14/2012 LYMPHOPCT 7.2* 04/14/2012 MONOABSMAN 1.4* 04/13/2012 MONOMAN 8 04/13/2012 MONOPCT 9.9 04/14/2012 EOSINOABS 1.6* 04/13/2012 EOSINOMAN 9* 04/13/2012 EOSABS 1.1* 04/14/2012 EOSPCT 10.3* 04/14/2012 BASOSABS 0.1 04/14/2012 BASOPCT 1.1 04/14/2012 PLTEST ADEQUATE 04/13/2012 RBCMORPH NORMAL RBC MORPH 04/13/2012 COMDIFF FIBRIN STRANDS SEEN ON SMEAR REVIEW 04/13/2012 CMP: Lab Results Component Value Date NA 129* 04/14/2012 K 3.6 04/14/2012 CL 95* 04/14/2012 CO2 22* 04/14/2012 ANIONGAP 15 04/14/2012 GLUF 94 04/14/2012 BUN 38* 04/14/2012 CREATININE 5.90* 04/14/2012 BCR 6 04/14/2012 CA 7.0* 04/14/2012 CA 6.1* 04/02/2012 PROT 5.6* 04/14/2012 ALB 1.8* 04/14/2012 GLOB 3.7 04/14/2012 BILITOT 0.3 04/14/2012 ALP 98 04/14/2012 AST 28 04/14/2012 ALT 30 04/14/2012 EGFR 11* 04/14/2012 U/A: Lab Results Component Value Date COLORU YELLOW 04/14/2012 COLORU YELLOW 04/02/2012 CLARITYU CLOUDY 04/14/2012 CLARITYU TURBID 04/02/2012 MEROPENEM 1.025 04/14/2012 LEUKOCYTESUR SMALL* 04/14/2012 NITRITE NEGATIVE 04/14/2012 NITRITE NEGATIVE 04/02/2012 UROBILINOGEN 0.2 04/14/2012 UROBILINOGEN 0.2 04/02/2012 PHUR 6.0 04/14/2012 PHUR 5.0 04/02/2012 BLOODU LARGE* 04/14/2012 KETONES TRACE* 04/14/2012 BILIRUBINUR NEGATIVE 04/14/2012 BILIRUBINUR NEGATIVE 04/02/2012 GLUCOSEU 250* 04/14/2012 Echo cardiac adult complete [[id number]] Status: Edited Result - FINAL Study Result Patient Name: CAROL POTTER Date of : 1965 Performing Physician: Giovany Everett MD ------REPORT ADDENDED------ INDICATIONS R/O ENDOCARDITIS CONCLUSIONS 1. Mild Degenerative Valvular Heart Disease. Aortic valve mildly sclerotic, no /AI. Wilson ral, Tricuspid, and Pulmonic valves grossly NML. Mild MR, mild TR. 2. Mild concentric LVH, systolic function low NML, Grade II diastolic abnormality, LVEF 50-55%. RV mildly enlarged, systolic function preserved. Moderate LAE. Mild GREGORIO. 3. Small Pericardial effusion, no ta mponade. 4. No obvious masses or vegetation, however, cannot R/O endocarditis. Microbiology Results (last 14 days) Procedure Component Value Units Date/Time Blood culture, 2 of 2 [[id number]] (Abnormal) Collected:04/12/12 1231 Order Status:Completed Updated:04/14/12 1434 Specimen Information:Blood Specimen Description BLOOD, PERIPHERAL DRAW Specimen Description Result: Testing performed at [facility];[address] [place] [address] 04659 SPECIAL REQUESTS L WRIST SPECIAL REQUESTS Result: Testing performed at [facility];[address] [place] [address] 46394 GRAM STAIN Result: GRAM POSITIVE COCCI SEEN ON GRAM STAIN FROM AEROBIC BOTTLE SMEAR RESULTS CALLED TO AND READ BACK BY: SOULEYMANE Levine IN 4RP AT 0732 ON [id number] BY K GRAM STAIN GRAM POSITIVE COCCI IN CLUSTERS GRAM STAIN Result: CALLED RESULTS TO BEST Tan ON 4RP AT 1140 ON 04/14/12 [facility] RESULTS REPEATED GRAM STAIN Result: Testing performed at [facility];[address] [place] [address] 30803 CULTURE Result: STAPHYLOCOCCUS AUREUS SUSCEPTIBILITY TO FOLLOW (A) CULTURE GROWTH IN TWO OF TWO BOTTLES (A) CULTURE TIME TO DETECTION: 0.71 DAYS CULTURE Result: Testing performed at [facility], [address] [place] [address] REPORT STATUS PENDING Blood culture [[id number]] (Abnormal) Collected:04/11/12 0217 Order Status:Completed Updated:04/14/12 0854 Specimen Information:Blood Specimen Description BLOOD, PERIPHERAL DRAW Specimen Description Result: Testing performed at [facility];[address] [place] [address] 65927 SPECIAL REQUESTS RHAND SPECIAL REQUESTS Result: Testing performed at [facility];[address] [place] [address] 17803 GRAM STAIN Result: GRAM POSITIVE COCCI IN CLUSTERS SEEN IN AEROBIC BOTTLE SMEAR RESULTS CALLED TO AND READ BACK BY: DAVID Díaz/4RP 1921 JCM (A) GRAM STAIN Result: GRAM POSITIVE COCCI IN CLUSTERS SEEN ON SMEAR OF ANAEROBIC BOTTLE GRAM STAIN Result: CALLED TO 4RP/DAVID Díaz ON 04/14/12 AT 0657 BY READBACK GRAM STAIN Result: Testing performed at [facility];[address] [place] [address] 38956 CULTURE STAPHYLOCOCCUS AUREUS (A) CULTURE TIME TO DETECTION: 0.67 DAYS CULTURE GROWTH IN TWO OF TWO BOTTLES (A) CULTURE Result: VANCOMYCIN TERRANCE IS LESS THAN OR EQUAL TO 0.5 Mcg/mL CULTURE Result: Testing performed at [facility], [address] [place] [address] 28992 REPORT STATUS 04/14/2012 FINAL Organism STAPHYLOCOCCUS AUREUS Culture & Susceptibility STAPHYLOCOCCUS AUREUS Antibiotic Sensitivity Microscan Status Gentamicin Sensitive SUSCEPTIBLE Final Method: TERRANCE Moxifloxacin Sensitive SUSCEPTIBLE Final Method: TERRANCE Oxacillin Sensitive SUSCEPTIBLE Final Method: TERRANCE Penicillin G Resistant RESISTANT Final Method: TERRANCE Tetracycline Sensitive SUSCEPTIBLE Final Method: TERRANCE Trimethoprim + Sulfamethoxazole Sensitive SUSCEPTIBLE Final Method: TERRANCE Vancomycin Sensitive SUSCEPTIBLE Final Method: TERRANCE Comments STAPHYLOCOCCUS AUREUS (TERRANCE) STAPHYLOCOCCUS AUREUS Blood culture, 1 of 2 [[id number]] (Abnormal) Collected:04/12/12 1200 Order Status:Completed Updated:04/14/1243 Specimen Information:Blood Specimen Description BLOOD, LINE DRAW Specimen Description Result: Testing performed at [facility];[address] [place] [address] 03329 SPECIAL REQUESTS ART SPECIAL REQUESTS Result: Testing performed at [facility];[address] [place] [address] 52826 GRAM STAIN Result: GRAM POSITIVE COCCI SEEN ON GRAM STAIN FROM AEROBIC BOTTLE SMEAR RESULTS CALLED TO AND READ BACK BY: DEIDRE FLOWERS 4R AT 0611 ON [id number] BY CRK GRAM STAIN Result: Testing performed at [facility];[address] [place] [address] 76621 CULTURE Result: STAPHYLOCOCCUS AUREUS SUSCEPTIBILITY TO FOLLOW (A) CULTURE GROWTH IN ONE OF TWO BOTTLES (A) CULTURE TIME TO DETECTION: 0.65 DAYS CULTURE Result: Testing performed at [address] [address] REPORT STATUS PENDING Blood culture, 1 of 2 [[id number]] (Abnormal) Collected:04/10/12 1532 Order Status:Completed Updated:04/14/12 0805 Specimen Information:Blood Specimen Description BLOOD, PERIPHERAL DRAW Specimen Description Result: Testing performed at [facility];[address] [place] [address] 66056 SPECIAL REQUESTS LAC SPECIAL REQUESTS Result: Testing performed at [facility];[address] [place] [address] 74505 GRAM STAIN Result: GRAM POSITIVE COCCI SEEN ON GRAM STAIN FROM AEROBIC AND ANAEROBIC BOTTLES SMEAR RESULTS CALLED TO AND READ BACK BY: LINDA Mccullough IN 4RP AT 1340 ON [id number] BY CRK GRAM STAIN Result: Testing performed at [facility];[address] [place] [address] 28196 CULTURE STAPHYLOCOCCUS AUREUS (A) CULTURE Result: STREPTOCOCCUS ANGINOSUS SUSCEPTIBILITY TO FOLLOW (A) CULTURE TIME TO DETECTION: 0.85 DAYS CULTURE GROWTH IN TWO OF TWO BOTTLES (A) CULTURE Result: Testing performed at [address] [address] REPORT STATUS PENDING Organism STAPHYLOCOCCUS AUREUS Culture & Susceptibility STAPHYLOCOCCUS AUREUS Antibiotic Sensitivity Microscan Status Gentamicin Sensitive SUSCEPTIBLE Final Method: TERRANCE Moxifloxacin Sensitive SUSCEPTIBLE Final Method: TERRANCE Oxacillin Sensitive SUSCEPTIBLE Final Method: TERRANCE Penicillin G Resistant RESISTANT Final Method: TERRANCE Tetracycline Sensitive SUSCEPTIBLE Final Method: TERRANCE Trimethoprim + Sulfamethoxazole Sensitive SUSCEPTIBLE Final Method: TERRANCE Vancomycin Sensitive SUSCEPTIBLE Final Method: TERRANCE Comments STAPHYLOCOCCUS AUREUS (TERRANCE) STAPHYLOCOCCUS AUREUS Blood culture, 2 of 2 [[id number]] Collected:04/13/12 1115 Order Status:Completed Updated:04/14/12654 Specimen Information:Blood Specimen Description BLOOD, PERIPHERAL DRAW Specimen Description Result: Testing performed at [facility];[address] [place] [address] 31199 SPECIAL REQUESTS L WRIST SPECIAL REQUESTS Result: Testing performed at [facility];[address] [place] [address] 84996 CULTURE NO GROWTH AT THIS TIME CULTURE Result: Testing performed at [facility];[address] [place] [address] 03629 REPORT STATUS PENDING Blood culture, 1 of 2 [[id number]] Collected:04/13/12 1109 Order Status:Completed Updated:04/14/12654 Specimen Information:Blood Specimen Description BLOOD, PERIPHERAL DRAW Specimen Description Result: Testing performed at [facility];[address] [place] [address] 41356 SPECIAL REQUESTS L ARM SPECIAL REQUESTS Result: Testing performed at [facility];[address] [place] [address] 06682 CULTURE NO GROWTH AT THIS TIME CULTURE Result: Testing performed at [facility];[address] [place] [address] 77345 REPORT STATUS PENDING Blood culture, 2 of 2 [[id number]] (Abnormal) Collected:04/10/12 1542 Order Status:Completed Updated:04/13/12 0732 Specimen Information:Blood Specimen Description BLOOD, PERIPHERAL DRAW Specimen Description Result: Testing performed at [facility];[address] [place] [address] 85910 SPECIAL REQUESTS RAC SPECIAL REQUESTS Result: Testing performed at [facility];[address] [place] [address] 26229 GRAM STAIN Result: GRAM POSITIVE COCCI IN CLUSTERS SEEN ON SMEAR FROM AEROBIC BOTTLE (A) GRAM STAIN Result: SMEAR RESULTS CALLED TO AND READ BACK BY: YAZMIN DUNCAN 04/10/12 AT 2356 BY GRAM STAIN Result: Testing performed at [facility];[address] [place] [address] 44171 CULTURE STAPHYLOCOCCUS AUREUS (A) CULTURE GROWTH IN ONE OF TWO BOTTLES (A) CULTURE TIME TO DETECTION: 0.31 DAYS CULTURE VANCOMYCIN TERRANCE IS EQUAL TO ONE. CULTURE Result: Testing performed at [facility], [address] [place] [address] 71743 REPORT STATUS 04/13/2012 FINAL Organism STAPHYLOCOCCUS AUREUS Culture & Susceptibility STAPHYLOCOCCUS AUREUS Antibiotic Sensitivity Microscan Status Gentamicin Sensitive SUSCEPTIBLE Final Method: TERRANCE Moxifloxacin Sensitive SUSCEPTIBLE Final Method: TERRANCE Oxacillin Sensitive SUSCEPTIBLE Final Method: TERRANCE Penicillin G Resistant RESISTANT Final Method: TERRANCE Tetracycline Sensitive SUSCEPTIBLE Final Method: TERRANCE Trimethoprim + Sulfamethoxazole Sensitive SUSCEPTIBLE Final Method: TERRANCE Vancomycin Sensitive SUSCEPTIBLE Final Method: TERRANCE Comments STAPHYLOCOCCUS AUREUS (TERRANCE) STAPHYLOCOCCUS AUREUS Culture, drain tube tip [[id number]] (Abnormal) Collected:04/10/12 1905 Order Status:Completed Updated:04/12/12 1136 Specimen Information:Other / Catheter Tip Specimen Description CATHETER TIP Specimen Description Result: Testing performed at [facility];[address] [place] [address] 63203 CULTURE >15 COLONIES STAPHYLOCOCCUS AUREUS (A) CULTURE Result: THIS S. AUREUS IS SUSCEPTIBLE TO METHICILLIN (A) CULTURE Result: Testing performed at [facility], [address] [place] [address] 74418 REPORT STATUS 04/12/2012 FINAL AFB culture and smear [[id number]] Collected:04/03/12 1415 Order Status:Completed Updated:04/11/12 1251 Specimen Information:Sputum Specimen Description SPUTUM Specimen Description Result: Testing performed at [facility];[address] [place] [address] 45322 AFB STAIN NO ACID FAST BACILLI SEEN AFB STAIN Result: Testing performed at [facility], [address] [place] [address] 01917 CULTURE NO GROWTH AT THIS TIME CULTURE Result: Testing performed at [facility], [address] [place] [address] 52860 REPORT STATUS PENDING Urine culture [[id number]] (Abnormal) Collected:04/07/12 1336 Order Status:Completed Updated:04/09/12 135 Specimen Information:Urine Specimen Description URINE, COLLECTION NOT GIVEN Specimen Description Result: Testing performed at [facility];[address] [place] [address] 67351 CULTURE >100,000 CFU/ML STAPHYLOCOCCUS AUREUS (A) CULTURE Result: Testing performed at [facility], [address] [place] [address] 93393 REPORT STATUS 04/09/2012 FINAL Organism STAPHYLOCOCCUS AUREUS Culture & Susceptibility STAPHYLOCOCCUS AUREUS Antibiotic Sensitivity Microscan Status Gentamicin Sensitive SUSCEPTIBLE Final Method: TERRANCE Levofloxacin Sensitive SUSCEPTIBLE Final Method: TERRANCE Moxifloxacin Sensitive SUSCEPTIBLE Final Method: TERRANCE Nitrofurantoin Sensitive SUSCEPTIBLE Final Method: TERRANCE Oxacillin Sensitive SUSCEPTIBLE Final Method: TERRANCE Penicillin G Resistant RESISTANT Final Method: TERRANCE Tetracycline Sensitive SUSCEPTIBLE Final Method: TERRANCE Trimethoprim + Sulfamethoxazole Sensitive SUSCEPTIBLE Final Method: TERRANCE Vancomycin Sensitive SUSCEPTIBLE Final Method: TERRANCE Comments STAPHYLOCOCCUS AUREUS (TERRANCE) >100,000 CFU/ML STAPHYLOCOCCUS AUREUS Blood culture, 1 of 2 [[id number]] Collected:04/03/121414 Order Status:Completed Updated:04/09/12701 Specimen Information:Blood Specimen Description BLOOD, PERIPHERAL DRAW Specimen Description Result: Testing performed at [facility];[address] [place] [address] 34753 SPECIAL REQUESTS LAC SPECIAL REQUESTS Result: Testing performed at [facility];[address] [place] [address] 83351 CULTURE NO GROWTH IN 5 DAYS. CULTURE Result: Testing performed at [facility];[address] [place] [address] 18083 REPORT STATUS 04/09/2012 FINAL Blood culture, 2 of 2 [[id number]] Collected:04/03/12 141 Order Status:Completed Updated:04/09/12701 Specimen Information:Blood Specimen Description BLOOD, PERIPHERAL DRAW Specimen Description Result: Testing performed at [facility];[address] [place] [address] 64090 SPECIAL REQUESTS RAC SPECIAL REQUESTS Result: Testing performed at [facility];[address] [place] [address] 81800 CULTURE NO GROWTH IN 5 DAYS. CULTURE Result: Testing performed at [facility];[address] [place] [address] 51922 REPORT STATUS 04/09/2012 FINAL Urine culture [[id number]] (Abnormal) Collected:04/06/12 0022 Order Status:Completed Updated:04/08/12 1505 Specimen Description URINE, COLLECTION NOT GIVEN Specimen Description Result: Testing performed at [facility];[address] [place] [address] 31485 CULTURE >100,000 CFU/ML STAPHYLOCOCCUS AUREUS (A) CULTURE Result: Testing performed at [facility], [address] [place] [address] 67680 REPORT STATUS 04/08/2012 FINAL Organism STAPHYLOCOCCUS AUREUS Culture & Susceptibility STAPHYLOCOCCUS AUREUS Antibiotic Sensitivity Microscan Status Gentamicin Sensitive SUSCEPTIBLE Final Method: TERRANCE Levofloxacin Sensitive SUSCEPTIBLE Final Method: TERRANCE Moxifloxacin Sensitive SUSCEPTIBLE Final Method: TERRANCE Nitrofurantoin Sensitive SUSCEPTIBLE Final Method: TERRANCE Oxacillin Sensitive SUSCEPTIBLE Final Method: TERRANCE Penicillin G Resistant RESISTANT Final Method: TERRANCE Tetracycline Sensitive SUSCEPTIBLE Final Method: TERRANCE Trimethoprim + Sulfamethoxazole Sensitive SUSCEPTIBLE Final Method: TERRANCE Vancomycin Sensitive SUSCEPTIBLE Final Method: TERRANCE Comments STAPHYLOCOCCUS AUREUS (TERRANCE) >100,000 CFU/ML STAPHYLOCOCCUS AUREUS Urine Culture [[id number]] Collected:04/02/12228 Order Status:Completed Updated:04/04/121954 Specimen Information:Urine Specimen Description CATHETERIZED URINE Specimen Description Result: Testing performed at [facility];[address] [place] [address] 60002 CULTURE NO GROWTH 2 DAYS CULTURE Result: Testing performed at [facility], [address] [place] [address] 51641 REPORT STATUS 04/04/2012 FINAL Radiology Results (last 7 days) Procedure Component Value Units Date/Time CT upper extremity left w contrast [[id number]] Resulted:04/14/12236 Order Status:Completed Updated:04/14/12237 Narrative: CT LEFT FOREARM WITH CONTRAST 04/13/2012 HISTORY: Hand swelling. Evaluate for abscess. COMPARISON: None. TECHNIQUE: CT of the left forearm from elbow to hand using 100 mL Isovue-300 IV including m ultiplanar reformats. FINDINGS: There is subcutaneous edema of the dorsal surface of the hand and wrist. There is no organi zed abscess within the wrist or hand. No obvious bony destruction. There is an IV line in the radial side of the forearm. There is circumferential subcutaneou s edema within the forearm. The muscular compartments appear normal in attenuation without a chantal of mild necrosis, hypoenhancement or intramuscular abscess. No intramuscular hematoma is visualized. No joint effusion at the elbow is visualized. There our arterial vascular calci fications. No fracture seen. IMPRESSION: 1. Diffuse subcutaneous edema of the forearm and dorsal subcutaneous edema of the hand and wrist. 2. No subcutaneous fluid collection. 3. No intramuscular fluid collection or obvious muscular edema or hemorrhage. Electronically signed by Kev Fuentes MD on Apr 14 2012 2:37AM CT abdomen pelvis with contrast [[id number]] Resulted:04/13/122319 Order Status:Completed Updated:04/13/122320 Narrative: CT ABDOMEN AND PELVIS WITH CONTRAST 04/13/2012 HISTORY: Abdomen pain. TECHNIQUE: Scans were obtained through the abdomen and pelvis after 100 mL of Isovue-300 wi th coronal and sagittal reformations. FINDINGS: There are medium pleural effusions with minor overlying atelectasis in the lung b ases. There is also a pericardial effusion. In the abdomen, the liver, spleen, pancreas, adrenals, and kidneys are unremarkable. No gal lstones or dilated ducts, noting a contracted gallbladder. No aortic enlargement. No adenopa thy. The bowel is unremarkable in the abdomen and pelvis. There is oral contrast in the colon. N ormal appendix identified. No free air in the abdomen and pelvis. Trace free fluid. In the pelvis, a Newman catheter drains the bladder. Prostate is not enlarged. Diffuse body wall edema noted. IMPRESSION: 1. Medium pleural effusions with minor overlying atelectasis. 2. Pericardial effusion. 3. Trace ascites. Electronically signed by Favio Archuleta MD on Apr 13 2012 11:20PM Ultrasound doppler venous arm left [[id number]] Collected:04/11/121900 Order Status:Completed Updated:04/11/121909 Narrative: CAROLDIANELYS POTTER US DOPPLER VENOUS ARM LEFT 04/11/2012 6:30 PM HISTORY: 47 years. Male. Left hand pain and swelling. Thrombosis of the right cephalic vein seen on Doppler evaluation of the right upper extremity yesterday. TECHNIQUE: Left upper extremity venous Doppler performed with color Doppler and spectral Doppler wavef orm analysis. COMPARISON: Right upper extremity venous Doppler exam 04/10/2012 FINDINGS: The left internal jugular, subclavian and axillary veins are patent. Normal compressibility , augmentation of flow, and Doppler flow evident within the venous system of the left upper extremity. No evidence of venous thrombosis. Moderate soft tissue swelling noted in the reg ion of the cephalic vein. IMPRESSION: 1. No evidence of left upper extremity vein thrombosis. Ultrasound doppler venous arm right [[id number]] Collected:04/10/12 2306 Order Status:Completed Updated:04/10/122318 Narrative: CAROL TARIQ US DOPPLER VENOUS ARM RIGHT 04/10/2012 9:15 PM HISTORY: 47 years. Male. Swollen right arm. Assess for venous thrombus. TECHNIQUE: Right upper extremity venous Doppler performed with color Doppler and spectral Doppler wave form analysis. COMPARISON: None. FINDINGS: Noncompressible, partially occlusive thrombus noted throughout the cephalic vein and in the antecubital vein. A 14 x 7 mm lymph node is noted near the right internal jugular vein. T he right internal jugular vein itself demonstrates normal flow however compressibility could not be assessed due to the patient unable to tolerate transducer pressure in this region. The right axillary vein, basilic vein and brachial vein are patent. IMPRESSION: 1. Noncompressible partially occlusive thrombus throughout the right cephalic vein and rig ht antecubital vein. Findings were reported to Dr. Siddiqi by telephone at 04/10/2012 11:11 PM. needle biopsy kidney [[id number]] Collected:04/10/124 Order Status:Completed Updated:04/10/121733 Narrative: HISTORY: Renal failure. Numerous small papular ulcerated lesions covering the skin of the entire karri dy. COMPARISON: None. TECHNIQUE: Following a discussion of the proposed procedure and potential complications including blee ding, infection, arteriovenous fistula in the kidney, pneumothorax, informed consent was obt ained. There has was uncertain whether with the biopsy the right or left kidney, this was d iscussed, and marked with the patient prior to initiation of the procedure. Which ever mary hancock was easier to access would be biopsied. Conscious sedation was provided by a certified nu rse in attendance throughout the procedure using 25 mcg fentanyl, and 1 mg Versed, with adeq uate conscious sedation. Intra-sedation time less than 30 minutes. The patient was placed prone on the CT table. The right kidney was marked under CT guidanc e. The skin was prepped and draped in the usual sterile fashion. The skin, subcutaneous, a nd deep tissues were anesthetized using 1% lidocaine buffered with bicarbonate. Under CT gu idance, a 17-gauge introducer was advanced into the inferior pole of the right kidney. 5 -- 18G -- 2.2-cm cores were obtained. No bleeding from the hub of the needle, unusual. Needle was removed. No complications. IMPRESSION: 1. Successful renal biopsy inferior pole right kidney. No significant bleeding was seen f rom the hub the needle, abnormal. Correlate with biopsy results. Post biopsy scans are unr emarkable. LEM LIST Active Problems: Type II or unspecified type diabetes mellitus without mention of complication, not stated as uncontrolled Amphetamine and other psychostimulant dependence, continuous Hyperphosphatemia Anemia Rash and nonspecific skin eruption Vitamin d deficiency Secondary hyperparathyroidism (of renal origin) Hypocalcemia Hypothyroidism Eczema herpeticum Hypoalbuminemia MSSA (methicillin susceptible Staphylococcus aureus) infection Hypokalemia Abdominal pain, right upper quadrant Diabetes mellitus with ESRD (end-stage renal disease) ASSESSMENT & PLAN MSSA bacteremia with bacteriuria -so far, 04/13 blood cultures with no growth. May possibly need KAUSHIK. Blood cultures for 04/15 requested. Continue IV clindamycin and ceftriaxone for now. Rash -awaiting official skin biopsy report. Eczema herpeticum was in the differential. Autoim mune disease possible but ALLIE is negative. IV Exit site infection -line removed. US did not show DVT Renal Failure -kidney biopsy shows advanced fibrotic changes with little chance of recovery. May need t o transition to IV vancomycin at time of discharge so antibiotics for MSSA bacteremia can be administered during HD Case discussed with Dr. Dawkins and Dr. Soria Code Status: Full Code ELSIE LERNER MD 04/14/2012 Cosmo Lang MD - 04/14/2012 10:02 AM PDT Progress Notes by Cosmo Soria MD at 04/14/12 1002 Author: Cosmo Soria MD Service: Nephrology Author Type: Physician Filed: 04/14/12 1647 Date of Service: 04/14/12 1002 Status: Signed Economic Development Coordinator: Cosmo Soria MD (Physician) PCP is Ashly Quick MD, MD LOS: 12 days Carol Potter is a 47 y.o. male who is being followed for TIFFANIE associated with hyperkalemia in t he setting of DM2/HTN/recreational drug user/rhabdomyolysis. He is s/p diagnostic kidney biopsy which shows advanced fibrotic changes with little chance of recovery. Specifically AIN is not demonstrated. Interval history: He was seen with his 04/11/2012. Carol Potter says that he feels OK today. He is seen on HD today. He has been afebrile last 24 hrs. ROS: No fever, chills sweats. No nausea, vomiting. No rashes or pruritis. No oral pain. ROS: As in History of Present Illness. 7 area ROS was done and was otherwise negative. Examination: Constitutional: Resting in bed. He is seen on HD today. HEENT: Neck supple, no JVD, non icteric sclera. Cardiovascular: S1soft. S2 split not appreciated. No friction rub. No S3. No murmur. LUNGS:: Clear breath sounds bilaterally, no wheezes and no rales. Abdominal: SoftNo distension and no mass. There is no rebound tenderness and no guarding. Tender hepatomegaly felt. Musculoskeletal: No gross deformity, EXT: B/L LE edema with chronic venous changes. He also has left UE edema. Neurological: No gross focal motor neurologic deficits. Skin: Skin is warm and dry. Multiple bullous lesions all over his body with bloody base. Lines: Right IJ Cuffed catheter in situ. Newman catheter in situ with clear urine. Left UE PICC line in situ. CASE: [id number] PATIENT: CAROL POTTER Surgical Pathology Report PATHOLOGIC DIAGNOSIS: KIDNEY, NEEDLE CORE BIOPSY: - SEVERE NODULAR AND GLOBAL GLOMERULOSCLEROSIS CONSISTENT WITH DIABETIC NEPHROPATHY. - HYPERTENSIVE VASCULAR CHANGES. - SEVERE TUBULAR ATROPHY AND INTERSTITIAL FIBROSIS IMMUNOFLUORESCENCE MICROSCOPY: Direct immunofluorescence is performed on frozen tissue showing 12-13 partially sclerosed o r completely sclerosed glomeruli. Immunofluorescence for IgG is negative. IgM shows 1+ rocio ing. IgA, fibrinogen, albumin, kappa, and lambda are all negative. C3 and C1q show nonspecific trapping. This immunofluorescence pattern is compatible with diabetic nephropat hy and is negative. MICROSCOPIC EXAMINATION: Sections show approximately 10-12 glomeruli, all of which show complete or nodular sclerosi s. None of the glomeruli show crescent formation or proliferative changes. No fibrinoid necr osis is seen. The interstitium shows 75% interstitial fibrosis with marked tubular atrophy. Blood vessels show hypertensive vascular changes. PAS, Lentz and Trichrome stains support the his tologic findings. No significant interstitial chronic inflammation is present. No vasculitis is identified. The histologic features are compatible with fairly end-stage renal disease, consistent with hypertension and diabetic origin. [place] Red and Thioflavin-T stains performed on the kidney biopsy for amyloid are both negat home. There is no change in the diagnosis. Imaging 2 D echo R/O ENDOCARDITIS CONCLUSIONS 1. Mild Degenerative Valvular Heart Disease. Aortic valve mildly sclerotic, no /AI. Wilson ral, Tricuspid, and Pulmonic valves grossly NML. Mild MR, mild TR. 2. Mild concentric LVH, systolic function low NML, Grade II diastolic abnormality, LVEF 50-55%. RV mildly enlarged, systolic function preserved. Moderate LAE. Mild GREGORIO. 3. Small Pericardial effusion, no ta mponade. 4. No obvious masses or vegetation, however, cannot R/O endocarditis. FINDINGS Degenerative Valvular Heart Disease. ECG rhythm: Sinus rhythm. Study: A 2-dimensional transthoracic echocardiogram with m-mode, spectral and color flow Do ppler was perfomed. Study: This was a technically adequate study. Left Ventricle: Overall left ventricular systolic function is low-normal with, an EF betwee n 50 - 55 %. CT LEFT FOREARM WITH CONTRAST 04/13/2012 IMPRESSION: 1. Diffuse subcutaneous edema of the forearm and dorsal subcutaneous edema of the hand and wrist. 2. No subcutaneous fluid collection. 3. No intramuscular fluid collection or obvious muscular edema or hemorrhage. CT ABDOMEN AND PELVIS WITH CONTRAST 04/13/2012 IMPRESSION: 1. Medium pleural effusions with minor overlying atelectasis. 2. Pericardial effusion. 3. Trace ascites. Renal USG. FINDINGS: Right kidney measures 9.5 by 5.3 x 4 .9 cm, and the left kidney measures 10.6 by 5.0 by 5.9 cm. Both kidneys appear unremarkable. No hydronephrosis. Urinary bladder is empty, with a Newman catheter in place. Ureteral jets are not seen. IMPRESSION: 1. Unremarkable appearance of the kidneys. 2. Empty urinary bladder with a Newman catheter in place. Scheduled Medications amlodipine 10 mg Oral Daily calcitRIOL 0.25 mcg Oral Daily calcium acetate 1,334 mg Oral TID WC calcium carbonate 1,000 mg Oral Q8H carbamazepine 200 mg Oral TID ceftriaxone 2 g Intravenous Q24H clindamycin 600 mg Intravenous Q8H epoetin alena 10,000 Units Intravenous QMWF ergocalciferol 50,000 Units Oral Weekly escitalopram 5 mg Oral Daily famotidine 20 mg Oral Daily Or famotidine 20 mg Intravenous Daily heparin (porcine) Intracatheter Once in dialysis heparin (porcine) 1,000 Units Intravenous QMWF heparin (porcine) 500 Units Intravenous QMWF insulin aspart 0-14 Units Subcutaneous TID AC insulin aspart 0-7 Units Subcutaneous Nightly levothyroxine 25 mcg Oral QAM AC metoprolol 100 mg Oral BID potassium chloride 10 mEq Oral BID WC pregabalin 25 mg Oral Daily Continuous Infusions dextrose PRN Medications acetaminophen, acetaminophen, albumin human, albumin human, albumin human, albuterol, calam ine, dextrose, dextrose, dextrose, diatrizoate meglumine-sodium, fentaNYL, fentaNYL, glucago n, glucagon, hydrALAZINE, hydrocodone-acetaminophen, hydrocodone-acetaminophen, hydrOXYzine, insulin aspart, iopamidol, iopamidol, lidocaine, lorazepam, mineral oil-hydrophilic petrola kenji, ondansetron, ondansetron, polyethylene glycol, sodium bicarbonate buffer sodium chloride, sodium chloride, sodium chloride, sodium chloride Allergy: Allergies Allergen Reactions Penicillins Other (See Comments) unknown Lab Results Component Value Date BUN 38* 04/14/2012 CREATININE 5.90* 04/14/2012 EGFR 11* 04/14/2012 NA 129* 04/14/2012 K 3.6 04/14/2012 CL 95* 04/14/2012 CO2 22* 04/14/2012 CA 7.0* 04/14/2012 PHOS 4.2 04/07/2012 MG 1.7 04/07/2012 ALB 1.8* 04/14/2012 HGB 8.5* 04/14/2012 Component Value Date/Time CREATININE 5.90* 04/14/2012 0424 CREATININE 5.06* 04/13/2012 0451 CREATININE 6.19* 04/12/2012 0516 CREATININE 7.32* 04/11/2012 0220 CREATININE 9.68* 04/10/2012 0435 CREATININE 9.37* 04/09/2012 0507 CREATININE 9.28* 04/08/2012 0530 CREATININE 9.66* 04/07/2012 0530 CREATININE 10.61* 04/06/2012 0520 CREATININE 11.44* 04/05/2012 0510 Component Value Date/Time BUN 38* 04/14/2012 0424 BUN 33* 04/13/2012 0451 BUN 49* 04/12/2012 0516 BUN 72* 04/11/2012 0220 BUN 104* 04/10/2012 0435 BUN 97* 04/09/2012 0507 BUN 91* 04/08/2012 0530 BUN 88* 04/07/2012 0530 BUN 93* 04/06/2012 0520 BUN 94* 04/05/2012 0510 Blood cultures: 04/10/2012 MSSA 04/11/2012 Staph aureus 04/12/2012 G + cocci 04/13/2012: Negative so far Vital Signs: BP 125/89 | Pulse 72 | Temp(Src) 98.7 F (37.1 C) (Oral) | Resp 20 | Ht 1.702 m (5' 7") | Wt 97.6 kg (215 lb 2.7 oz) | BMI 33.70 kg/m2 | SpO2 100% I&O Detailed Table: I/O last 3 completed shifts: In: 3921 [P.O.:3150; Blood:571; IV Piggyback:200] Out: 385 [Urine:385] Weight change: -1.1 kg (-2 lb 6.8 oz) Hemodynamics Last 24hrs: Active Problems: Type II or unspecified type diabetes mellitus without mention of complication, not stated as uncontrolled Amphetamine and other psychostimulant dependence, continuous Hyperphosphatemia Anemia Rash and nonspecific skin eruption Vitamin d deficiency Secondary hyperparathyroidism (of renal origin) Hypocalcemia Eczema herpeticum Hypoalbuminemia MSSA (methicillin susceptible Staphylococcus aureus) infection Diabetes mellitus with ESRD (end-stage renal disease) Hyponatremia Hypothyroidism Abdominal pain, right upper quadrant Assessment and Recommendations: TIFFANIE: Mr. Potter is a 47 y.o. male patient with TIFFANIE with hyperkalemia (likely on basis of advanced i nterstitial fibrosis/vascular disease based on prelim kidney biopsy report) further complica gela by rhabdomyolysis and recreational drug use. He is s/p first HD session 04/10/2012. RENAL FUNCTION: Possibly dialysis dependent VOLUME STATUS: Volume overloaded. HD timeline: 04/10/2012: 3 L UF 04/11/2012: 3 L UF 04/12/2012: 2 L UF Kidney biopsy shows advanced glomeruloscloerosis/fibrosis with no reversible factors isolat ed. It is likely he will remain dialysis dependent. At this time he has cuffed right IJ HD catheter and we would use that. Kidney biopsy shows ESRD and he would need maintenance HD. Plan of care was discussed with Dr. Anthony (HD coordinator). He would need to be set up for maintenance HD at [place] under Dr. Timmons. BP: Better controlled. However he has just started HD and we would need to adjust antihypertens home medications based on UF. Continue CCB/BB for now. Severe anemia: LDH is minimally high. S Momo is normal. Hemolytic anemia is less likely. There is on obvious bleeding source. Transfuse PRN to keep Hb above 8. I would use ANAYA to keep target Hb between 10 to 11. CKD-MBD: Vitamin D deficiency: Secondary hyperparathyroidism: Vitamin D level is low and has been replaced. Electrolytes/Acid base balance: Hyperkalemia (resolved) Severe metabolic acidosis (resolved) Hyperphosphatemia: Hyponatremia: Continue PO4 binders (calcium based given hypocalcemia) and PO restricted diet. I would replace K PO to keep between 4 to 4.5 to prevent weakness. Obtain urine lytes. Hyponatremia likely reflects volume overload and I would perform UF to achieve optimal BP a nd volume. Malnutrition: He is profoundly malnourished in the setting of acute illness and will require aggressive n utritionist support with 1 gm/kg protein diet. Ongoing sepsis with bacteremia: Continue clindamycin per ID (dose adjusted). 2 D echo is negative for endocarditis. CT abdomen/pelvis/left UE is negative for obvious source of bacteremia. ? WBC labeled scan. Diet should be 1 gm/kg protein, 1 gm PO4, 2 gm Na, and 2 gm K restricted diet. All medications should be dosed for an eGFR of less than 15 ml/min/1.73 m2. NSAIDs (including ADAM 2 inhibitors) should not be used. Magnesium and aluminum containing antacids should not be used. Magnesium or phosphorus containing laxatives should not be used. Fluid should be restricted to less than 1.5 L in a 24 hr period. I/O should be monitored strictly. Daily weights should be done. Daily BMP (including Ca, PO4, Mg) should be done. Plan of care was discussed with Dr. Dawkins and Dr. Lerner. COSMO SORIA MD 04/14/2012 onversion Transactio n, Provider Unknown - 04/14/2012 8:43 AM PDT Progress Notes by Khadra Venegas RD, CDE at 04/14/12842 Author: Khadra Venegas RD, CDE Service: (none) Author Type: Registered Dietitian Filed: 04/14/12843 Date of Service: 04/14/12842 Status: Signed Economic Development Coordinator: Khadra Venegas RD, CDE (Product Transfer Pumper) Elevated post prandial blood sugars. Recommend: Consider starting on 2 units of Novolog r outine with meals. Khadra Venegas RD, MPH, CDE, Product Transfer Pumper 04/14/2012 8:44 AM Favio Blackburn MD - 04/14/2012 7:45 AM PDTFormatting of this note might be different f rom the original. Progress Notes by Favio Dawkins MD at 04/14/1292 Author: Favio Dawkins MD Service: Hospitalist Author Type: Physician Filed: 04/14/12 594 Date of Service: 04/14/12744 Status: Signed Economic Development Coordinator: Favio Dawkins MD (Physician) [facility] Service: Hospitalist Progress Note Hospital Day: LOS: 12 days Patient Summary: 47 year old with history of Hyperlipidemia, Hypertension, Diabetes mellitus type II, Asthma , Thyroid disease ,Meth abuse , denies alcoholism, MSSA bacteremia previously Apr 01 disapp eared from repeat blood cultures then grown on culture on 04/11/12 also with Anemia when he was admitted aandhaonelia to have blood transfusion, who presented by ambulance from [facility]. Was there at 04/01 at 2100 due to chest pain. He was given NTG there which relieved his pa in. He was found have a creatinine of 14.2 and was hyperkalemic with a K of 7.3. He was given Ca Gluconate, Insulin, D50, albuterol, kayexalate, Bicarb . No fluids given. He also has been using methamphetamine on that day which he says he only recently started. The pt does complain of an "itchy rash." The pt's rash has been present f or the past "4-5 days. And is all over his body. He denies any current chest pain. ER physic tatum has contacted Dr. Timmons who recommends bicarb drip and ER has already started RBC transfu quique. He reports resolution of chest pain. He does not have any PCP care prior to this and i s basically noncompliant with his medications. Denies nausea, vomiting, SOB, headacge. C/o p enile pain post catheterization. Despite medical treatment BUN and creatinine very slow to c ome down and subsequently afterKidney biopsy started on dialysis SUBJECTIVE Patient is seen and examined at bedside on follow up patient today complains of pain in RUQ after 2 BMS and Overnight, Vital Signs have been stable BP trending downward again patient states less itchy skin , no chest pain, SOB, nausea or vomiting. Scheduled Medications amlodipine 10 mg Oral Daily calcitRIOL 0.25 mcg Oral Daily calcium acetate 1,334 mg Oral TID WC calcium carbonate 1,000 mg Oral Q8H carbamazepine 200 mg Oral TID ceftriaxone 2 g Intravenous Q24H clindamycin 600 mg Intravenous Q8H ergocalciferol 50,000 Units Oral Weekly escitalopram 5 mg Oral Daily famotidine 20 mg Oral Daily Or famotidine 20 mg Intravenous Daily insulin aspart 0-14 Units Subcutaneous TID AC insulin aspart 0-7 Units Subcutaneous Nightly levothyroxine 25 mcg Oral QAM AC metoprolol 100 mg Oral BID potassium chloride 10 mEq Oral BID WC pregabalin 25 mg Oral Daily Continuous Infusions dextrose PRN Medications acetaminophen, acetaminophen, albumin human, albumin human, albuterol, calamine, dextrose, dextrose, dextrose, diatrizoate meglumine-sodium, fentaNYL, fentaNYL, glucagon, glucagon, hy drALAZINE, hydrocodone-acetaminophen, hydrocodone-acetaminophen, hydrOXYzine, insulin aspart , iopamidol, iopamidol, lidocaine, lorazepam, mineral oil-hydrophilic petrolatum, ondansetro n, ondansetron, polyethylene glycol, sodium bicarbonate buffer, sodium chloride sodium chloride, sodium chloride OBJECTIVE Vital Signs: BP 132/65 | Pulse 65 | Temp(Src) 97.6 F (36.4 C) (Oral) | Resp 20 | Ht 1.702 m (5' 7") | Wt 97.6 kg (215 lb 2.7 oz) | BMI 33.70 kg/m2 | SpO2 100% Intake/Output Summary (Last 24 hours) at 04/14/12 0745 Last data filed at 04/14/12 0518 Gross per 24 hour Intake 2621 ml Output 185 ml Net 2436 ml General: Alert and oriented x 3 Cardiovascular: Regular rate and rhythm, no murmurs, no thrills. Respiratory: Clear to auscultation, no wheezing or crackles, breathing non labored. Gastrointestinal: Soft, but tender and patient flinches when I barely touch abdomen, posit home bowel sounds Musculoskeletal: no joint erythema or edema. Upper extremities no clubbing, cyanosis, eryt rosetta or edema. Lower extremities no clubbing, cyanosis erythema or edema. Skin: Warm and dry, papular rash all over some bleeding no erythema or warmth, and with war ty excrecenses on fingers, has bandaged biopsy site on chest no bleeding Neurological: cranial nerves II-Xll, and sensation grossly normal. Psychiatric: Normal mood/affect, crying and anxious looking DATA No results found for this basename: TSH:3,T3FREE:3,FREET4:3 in the last 168 hours CBC: Lab Results Component Value Date WBC 10.4 04/14/2012 RBC 2.73* 04/14/2012 HGB 8.5* 04/14/2012 HCT 24.7* 04/14/2012 MCV 90.2 04/14/2012 MCH 31.0 04/14/2012 MCHC 34.3 04/14/2012 RDW 48.1 04/14/2012 PLT 249 04/14/2012 MPV 7.4 04/14/2012 DIFFTYPE AUTOMATED 04/14/2012 CMP: Lab Results Component Value Date NA 129* 04/14/2012 K 3.6 04/14/2012 CL 95* 04/14/2012 CO2 22* 04/14/2012 ANIONGAP 15 04/14/2012 GLUF 94 04/14/2012 BUN 38* 04/14/2012 CREATININE 5.90* 04/14/2012 BCR 6 04/14/2012 CA 7.0* 04/14/2012 CA 6.1* 04/02/2012 PROT 5.6* 04/14/2012 ALB 1.8* 04/14/2012 GLOB 3.7 04/14/2012 BILITOT 0.3 04/14/2012 ALP 98 04/14/2012 AST 28 04/14/2012 ALT 30 04/14/2012 EGFR 11* 04/14/2012 Albumin: Lab Results Component Value Date ALB 1.8* 04/14/2012 Calcium: No results found for this basename: CALCIUM Ionized Calcium: Lab Results Component Value Date CAITLYN 0.73* 04/07/2012 PH 7.536* 04/07/2012 Magnesium: Lab Results Component Value Date MG 1.7 04/07/2012 Phosphorus: Lab Results Component Value Date PHOS 4.2 04/07/2012 IMAGING Xr Chest 2 View 04/02/2012 CAROL TARIQ 1965 47 years Male XR CHEST 2 VIEW FRONTAL AND LATERAL 2 1:00 PM INDICATION: Shortness of breath COMPARISON: None. TECHNIQUE: Two view chest, PA and lateral views FINDINGS: Mild cardiomegaly is demonstrated. There is no mediastinal wi dening or shift. There is no pneumothorax or effusion. Scattered fine reticular markings a re seen along the periphery of the lungs bilaterally in the lower lobes. The pulmonary vasc ulature is normal in caliber. There are no pulmonary nodules. Moderate acromioclavicular o steoarthritis is present. There is mild degenerative disk disease of the thoracic spine. I MPRESSION: 1. Scattered reticular markings in the lower lungs bilaterally which may reflect interstitial changes versus mild edema. Electronically signed by Braden Paige MD on 1 1:[address] Chest Without Contrast 04/07/[address] WITHOUT IV CONTRAST 04/06/2012 HISTORY: Cough. COMPARISON: Chest rad iograph on 04/02/2012. TECHNIQUE: Helical axial scans of the chest without IV contrast. Cor onal reformatted images. FINDINGS: Small pleural effusion bilaterally. Small to moderate pe ricardial effusion, measuring about 13 mm in width. Minimal lower lung atelectasis. No pulmo nary consolidation or mass. No pneumothorax. Trachea and major bronchi appear normal. Mild e nlargement of aortopulmonary window and subcarinal nodes, up to 12 mm in short dimension. Mi nimal atherosclerosis of left anterior descending coronary artery. Upper abdomen demonstrate s no mass or adenopathy. Very small amount of ascites adjacent to the liver. Degenerative ch anges of the spine. Old right clavicle fracture. No acute skeletal abnormality. Diffuse subc utaneous edema. IMPRESSION: 1. Small bilateral pleural effusion. 2. Small to moderate peric ardial effusion. 3. Mild bilateral lower lung atelectasis. 4. Mild enlargement of aortopulmo nary window and subcarinal nodes. 5. Minimal atherosclerosis of left anterior descending cor onary artery. 6. Very small amount of ascites adjacent to the liver. 7. Diffuse subcutaneous edema. Electronically signed by Favio Hughes MD on Apr 07 2012 8:45AM Ultrasound Retroperitoneal Limited 04/02/2012 HISTORY: Acute renal failure. COMPARISON: None. TECHNIQUE: 4-MHz curvilinear sonographic barrientos scale, color flow evaluation of the kidneys and urinary bladder. FINDINGS: Right kidney measures 9.5 by 5.3 x 4 .9 cm, and the left kidney measures 10.6 by 5.0 by 5.9 cm. Both kidneys appear unremarkable. No hydronephrosis. Urinary bladder is empty, with a Newman catheter in place. Ureteral jets are not seen. IMPRESSION: 1. Unremarkable appear ance of the kidneys. 2. Empty urinary bladder with a Newman catheter in place. Electronical ly signed by Wilton Lentz MD on 04/02/2012 11:58 AM Blood culture and needle tip drawn yesterday growing ?MSSA PROBLEM LIST Active Problems: MSSA (methicillin susceptible Staphylococcus aureus) infection Obesity (BMI 30-39.9) Type II or unspecified type diabetes mellitus without mention of complication, not stated as uncontrolled Amphetamine and other psychostimulant dependence, continuous Anemia Rash and nonspecific skin eruption Vitamin d deficiency Secondary hyperparathyroidism (of renal origin) Hypothyroidism Eczema herpeticum Hypoalbuminemia Diabetes mellitus with ESRD (end-stage renal disease) Hyponatremia PLAN Principal Problem: *Renal failure, acute - with Kidney biopsy showing fibrosis and dr. Soria has already jc d patient he will need to be on life time dialysis Also contributory was hypoperfusion, NSA IDs, ACEI, and diarrhea. closely monitoring and started dialysis hopefully will be shortterm . Avoid nephrotoxins. Maybe Dialysis today and Dr. Soria to decide on when to repea dialysi s Active Problems: Type II or unspecified type diabetes mellitus without mention of complication, not stated as uncontrolled - Continue insulin coverage continue diabetic diet Essential hypertension, benign - continue present doses of meds and as dialysis continues mayhave toadjust downward Amphetamine and other psychostimulant dependence, continuous now off them, advised to stop , Urine drug screentoday only shows meds he is being given UDS on admission positive for met hamphetamines Hyperphosphatemia improved Anemia reccurred transfused two units today yesterday, no active bleeding, no signs of int ravascular hemolysis no increased bili, hemocults ordered and so far negative will need to f ollow up,HB 8.5 today will continue to monitor HB and hct . Rash and nonspecific skin eruption skin biopsy awaiting report [facility] tomorrow Vitamin d deficiency/Secondary hyperparathyroidism (of renal origin) continue weekly ergoc alciferol and 1000 mg calcium orally for Hypocalcemia continue to monitor electrolytes yelena y. Hypothyroidism continue with present Dose of Levothroid Eczema herpeticum? On acyclovir and skin biopsy done Per Dr. Dan of [facility] who I talked to today inflammatory changes seen and he sent slide to [place] and stains still pending Hos pitlaist taking over should call him tomorrow if Dr. Dan does not call back in AM with re port that he said should be in tomorrow. MSSA Bacteremia recurrent - Yesterday's blood culture no growth after 2 successive positiv e cultures as discussed with Dr. 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 RUQ pain Ct with contrast of abdomen and pelvis, negative, WBC now normal, now patietn says just off and on told patient probably musculoskeletal or gas and try not to use pain meds t oo often Left elbow draining lesion as per Dr. Tello did CTSCan of elbow no abcess or any area to d rain. Obesity advised weight loss Hyponatremia will be adjusted by dialysis I explained lab findings and plan of care to patient and relatives tried Patient expressed understanding and agreement and had no more questions for me after my interaction with him. More than 35 minutes spent directly face to face with patient for physical examination and t alking with him and relative at bedside, chart review, coordinating care with other provider s, formulating a plan of care and management as well as Computerized Physician Electronics Detail Draftsperson. Told them somebody else from hospitalist service will se him tomorrow. Code Status: Full Code Favio Dawkins MD 04/14/20127:45 AM onversion Transaction, Provider Unknown - 04/13/2012 7:30 PM PDTFormatting of this note might be diff erent from the original. Progress Notes by Juan Lind RN at 04/13/121929 Author: Juan Lind RN Service: (none) Author Type: Registered Nurse Filed: 04/13/121929 Date of Service: 04/13/121929 Status: Signed Economic Development Coordinator: Juan Lind RN (Registered Nurse) 1415 ~ MD into see pt after complaints of abdominal pain. told pt he was ordering a CT. Since this time pt has had no c/o of pain, ate 3 meals without any difficulty, drank all of his contrast and continues to deny any abd pain. Has been sleeping off and on and laughing a nd joking with family members that have been present. Pt is sleeping at this time. JUAN LIND RN 04/13/2012 Cosmo Lang MD - 04/13/2012 12:53 PM PDTFormatting of this note might be different from the or iginal. Progress Notes by Cosmo Soria MD at 04/13/12 3693 Author: Cosmo Soria MD Service: Nephrology Author Type: Physician Filed: 04/13/12 2218 Date of Service: 04/13/12 8333 Status: Signed Economic Development Coordinator: Cosmo Soria MD (Physician) PCP is Ashly Quick MD, MD LOS: 11 days Carol Potter is a 47 y.o. male who is being followed for TIFFANIE associated with hyperkalemia in t he setting of DM2/HTN/recreational drug user/rhabdomyolysis. He is s/p diagnostic kidney biopsy which shows advanced fibrotic changes with little chance of recovery. Specifically AIN is not demonstrated. Interval history: He was seen with his 04/11/2012. Carol Potter says that he feels 'uncomfortable' today. He is still in a lot of pain from his skin lesions. He continues to be bacteremic. He has been afebrile last 24 hrs. ROS: No fever, chills sweats. No nausea, vomiting. No rashes or pruritis. No oral pain. He had 2 loose BM yesterday. ROS: As in History of Present Illness. 7 area ROS was done and was otherwise negative. Examination: Constitutional: Resting in bed. He is in pain from his skin lesions and also complains of right leg and abdominal pain. HEENT: Neck supple, no JVD, non icteric sclera. Cardiovascular: S1soft. S2 split not appreciated. No friction rub. No S3. No murmur. LUNGS:: Clear breath sounds bilaterally, no wheezes and no rales. Abdominal: SoftNo distension and no mass. There is no rebound tenderness and no guarding. Tender hepatomegaly felt. Musculoskeletal: No gross deformity, EXT: B/L LE edema with chronic venous changes. He also has left UE edema. Neurological: No gross focal motor neurologic deficits. Skin: Skin is warm and dry. Multiple bullous lesions all over his body with bloody base. Lines: Right IJ Cuffed catheter in situ. Newman catheter in situ with clear urine. Left UE PICC line in situ. Imaging Renal USG. FINDINGS: Right kidney measures 9.5 by 5.3 x 4 .9 cm, and the left kidney measures 10.6 by 5.0 by 5.9 cm. Both kidneys appear unremarkable. No hydronephrosis. Urinary bladder is empty, with a Newman catheter in place. Ureteral jets are not seen. IMPRESSION: 1. Unremarkable appearance of the kidneys. 2. Empty urinary bladder with a Newman catheter in place. XR CHEST 1 VIEW 04/10/2012 IMPRESSION: 1. Mild congestive heart failure, progressive from the prior study. US DOPPLER VENOUS ARM RIGHT 04/10/2012 IMPRESSION: 1. Noncompressible partially occlusive thrombus throughout the right cephalic vein and rig ht antecubital vein. Scheduled Medications amlodipine 10 mg Oral Daily calcitRIOL 0.25 mcg Oral Daily calcium acetate 1,334 mg Oral TID WC calcium carbonate 1,000 mg Oral Q8H carbamazepine 200 mg Oral TID ceftriaxone 2 g Intravenous Q24H clindamycin 600 mg Intravenous Q8H ergocalciferol 50,000 Units Oral Weekly escitalopram 5 mg Oral Daily famotidine 20 mg Oral Daily Or famotidine 20 mg Intravenous Daily heparin (porcine) Intracatheter Once in dialysis insulin aspart 0-14 Units Subcutaneous TID AC insulin aspart 0-7 Units Subcutaneous Nightly levothyroxine 25 mcg Oral QAM AC metoprolol 100 mg Oral BID potassium chloride 10 mEq Oral BID WC pregabalin 25 mg Oral Daily DISCONTD: metoprolol 50 mg Oral BID Continuous Infusions dextrose PRN Medications acetaminophen, acetaminophen, albumin human, albumin human, albuterol, calamine, dextrose, dextrose, dextrose, fentaNYL, fentaNYL, glucagon, glucagon, hydrALAZINE, hydrocodone-acetami nophen, hydrocodone-acetaminophen, hydrOXYzine, insulin aspart, lidocaine, lorazepam, minera l oil-hydrophilic petrolatum, ondansetron, ondansetron, polyethylene glycol, sodium bicarbon ate buffer, DISCONTD: lorazepam, DISCONTD: ondansetron Allergy: Allergies Allergen Reactions Penicillins Other (See Comments) unknown Lab Results Component Value Date BUN 33* 04/13/2012 CREATININE 5.06* 04/13/2012 EGFR 13* 04/13/2012 NA 134* 04/13/2012 K 3.2* 04/13/2012 CL 98* 04/13/2012 CO2 23 04/13/2012 CA 7.0* 04/13/2012 PHOS 4.2 04/07/2012 MG 1.7 04/07/2012 ALB 1.8* 04/13/2012 HGB 7.0* 04/13/2012 Component Value Date/Time CREATININE 5.06* 04/13/2012 0451 CREATININE 6.19* 04/12/2012 0516 CREATININE 7.32* 04/11/2012 0220 CREATININE 9.68* 04/10/2012 0435 CREATININE 9.37* 04/09/2012 0507 CREATININE 9.28* 04/08/2012 0530 CREATININE 9.66* 04/07/2012 0530 CREATININE 10.61* 04/06/2012 0520 CREATININE 11.44* 04/05/2012 0510 CREATININE 11.98* 04/04/2012 0605 Component Value Date/Time BUN 33* 04/13/2012 0451 BUN 49* 04/12/2012 0516 BUN 72* 04/11/2012 0220 BUN 104* 04/10/2012 0435 BUN 97* 04/09/2012 0507 BUN 91* 04/08/2012 0530 BUN 88* 04/07/2012 0530 BUN 93* 04/06/2012 0520 BUN 94* 04/05/2012 0510 BUN 104* 04/04/2012 0605 Blood cultures: 04/10/2012 MSSA 04/11/2012 Staph aureus 04/12/2012 G + cocci Vital Signs: BP 144/68 | Pulse 65 | Temp(Src) 98 F (36.7 C) (Oral) | Resp 18 | Ht 1.702 m (5' 7") | Wt 97.1 kg (214 lb 1.1 oz) | BMI 33.53 kg/m2 | SpO2 100% I&O Detailed Table: I/O last 3 completed shifts: In: 4215 [P.O.:2965; Other:1250] Out: 4450 [Urine:1200; Other:3250] Weight change: -2.8 kg (-6 lb 2.8 oz) Hemodynamics Last 24hrs: Principal Problem: *Renal failure, acute Active Problems: Type II or unspecified type diabetes mellitus without mention of complication, not stated as uncontrolled Amphetamine and other psychostimulant dependence, continuous Hyperphosphatemia Anemia Rash and nonspecific skin eruption Vitamin d deficiency Secondary hyperparathyroidism (of renal origin) Hypocalcemia Eczema herpeticum Hypoalbuminemia MSSA (methicillin susceptible Staphylococcus aureus) infection Hypokalemia Hypothyroidism Assessment and Recommendations: TIFFANIE: Mr. Potter is a 47 y.o. male patient with TIFFANIE with hyperkalemia (likely on basis of advanced i nterstitial fibrosis/vascular disease based on prelim kidney biopsy report) further complica gela by rhabdomyolysis and recreational drug use. He is s/p first HD session 04/10/2012. RENAL FUNCTION: Possibly dialysis dependent VOLUME STATUS: Volume overloaded. HD timeline: 04/10/2012: 3 L UF 04/11/2012: 3 L UF 04/12/2012: 2 L UF Kidney biopsy shows advanced glomeruloscloerosis/fibrosis with no reversible factors isolat ed. It is likely he will remain dialysis dependent. At this time he has cuffed right IJ HD catheter and we would use that. I would hold HD today and assess his need for HD Saturday. He likely will require maintenance HD and I will discuss with dialysis coordinator "Raj" on Saturday to set him up for maintenance HD. BP: Better controlled. However he has just started HD and we would need to adjust antihypertens home medications based on UF. Continue CCB/BB for now. Severe anemia: LDH is minimally high. S Momo is normal. Hemolytic anemia is less likely. There is on obvious bleeding source. Transfuse PRN to keep Hb above 8. I would use ANAYA to keep target Hb between 10 to 11. CKD-MBD: Vitamin D deficiency: Secondary hyperparathyroidism: Vitamin D level is low and has been replaced. Electrolytes/Acid base balance: Hyperkalemia (resolved) Severe metabolic acidosis (resolved) Hyperphosphatemia: Hypokalemia: Continue PO4 binders (calcium based given hypocalcemia) and PO restricted diet. I would replace K PO to keep between 4 to 4.5 to prevent weakness. Obtain urine lytes. Malnutrition: He is profoundly malnourished in the setting of acute illness and will require aggressive n utritionist support with 1 gm/kg protein diet. Ongoing sepsis with bacteremia: Continue clindamycin per ID (dose adjusted). Since he is now on dialysis IV contrast may be used for CT with IV contrast to localize edison rce of bacteremia (possibly abscess in the left arm). Diet should be 1 gm/kg protein, 1 gm PO4, 2 gm Na, and 2 gm K restricted diet. All medications should be dosed for an eGFR of less than 15 ml/min/1.73 m2. NSAIDs (including ADAM 2 inhibitors) should not be used. Magnesium and aluminum containing antacids should not be used. Magnesium or phosphorus containing laxatives should not be used. Fluid should be restricted to less than 1.5 L in a 24 hr period. I/O should be monitored strictly. Daily weights should be done. Daily BMP (including Ca, PO4, Mg) should be done. I discussed with Dr. Tello he above at the time of this encounter. COSMO SORIA MD 04/13/2012 uresh, Kisha Rousseau MD - 04/13/2012 10:26 AM PDT Progress Notes by Kisha Tello MD at 04/13/12 1026 Author: Kisha Tello MD Service: (none) Author Type: Physician Filed: 04/13/12 0629 Date of Service: 04/13/12 1026 Status: Signed Economic Development Coordinator: Kisha Tello MD (Physician) [facility] Service: Infectious Disease Progress Note Hospital Day: LOS: 11 days Post-Op Day: * No surgery found * SUBJECTIVE Patient Summary: 38-year-old male presents with rash, renal failure, rhabdomyolysis, epistaxis, without fevers. There was initial concern for hemoptysis although this consisted of throat clearing during an episode of epistaxis, with no respiratory symptoms and normal c hest x-ray. Airborne isolation was discontinued. He has not received any antibiotics. ID jose miguel stan was requested of her concern about his skin rashes and possible underlying infection. T esting for HIV, syphilis and blood cultures all negative. Whole blood tuberculosis screen is Also negative. Events overnight- Reports of skin biopsy still pending. Patient remains alert. Scheduled Medications amlodipine 10 mg Oral Daily calcitRIOL 0.25 mcg Oral Daily calcium acetate 1,334 mg Oral TID WC calcium carbonate 1,000 mg Oral Q8H carbamazepine 200 mg Oral TID ceftriaxone 2 g Intravenous Q24H clindamycin 600 mg Intravenous Q8H epoetin alena 10,000 Units Intravenous Once in dialysis ergocalciferol 50,000 Units Oral Weekly escitalopram 5 mg Oral Daily famotidine 20 mg Oral Daily Or famotidine 20 mg Intravenous Daily heparin (porcine) Intracatheter Once in dialysis heparin (porcine) 1,000 Units Intravenous Once heparin (porcine) 500 Units Intracatheter Once insulin aspart 0-14 Units Subcutaneous TID AC insulin aspart 0-7 Units Subcutaneous Nightly levothyroxine 25 mcg Oral QAM AC metoprolol 100 mg Oral BID pregabalin 25 mg Oral Daily DISCONTD: acyclovir 5 mg/kg ([facility]) Intravenous Q24H DISCONTD: DAPTOmycin (CUBICIN) IV 6 mg/kg Intravenous Once DISCONTD: metoprolol 50 mg Oral BID Continuous Infusions dextrose PRN Medications acetaminophen, acetaminophen, albumin human, albumin human, albuterol, calamine, dextrose, dextrose, dextrose, fentaNYL, fentaNYL, glucagon, glucagon, hydrALAZINE, hydrocodone-acetami nophen, hydrocodone-acetaminophen, hydrOXYzine, insulin aspart, lidocaine, lorazepam, minera l oil-hydrophilic petrolatum, ondansetron, ondansetron, polyethylene glycol, sodium bicarbon ate buffer, DISCONTD: lorazepam, DISCONTD: ondansetron OBJECTIVE Vital Signs: BP 146/70 | Pulse 79 | Temp(Src) 98.2 F (36.8 C) (Axillary) | Resp 20 | Ht 1.702 m (5' 7") | Wt 97.1 kg (214 lb 1.1 oz) | BMI 33.53 kg/m2 | SpO2 96% Temp (24hrs), Av.6 F (37 C), Min:98.1 F (36.7 C), Max:99.1 F (37.3 C) Physical Exam Exam: Const: Vitals reviewed. No acute distress; Skin: Bilateral lower extremity bullous lesions that rupture leaving bloody base. Excoriations and eczematous lesions that are currently drying up. Wound present on the right hand dorsal surface it appears to be stable. Significant tenderness over the left IV site. Line has been removed.Indurated swelling that can be felt left arm. Ultrasound has been unrevealing. Indurated swelling at the right elbow with an opening that is discharging anna pus ENT: No thrush. Lungs: Few bilateral scattered rales Heart: RRR, no murmur Abd: soft, NT, + bowel sounds DATA CBC: Lab Results Component Value Date WBC 10.2 04/07/2012 RBC 2.71* 04/07/2012 HGB 7.0* 04/13/2012 HCT 21.0* 04/13/2012 MCV 90.8 04/07/2012 MCH 30.3 04/07/2012 MCHC 33.4 04/07/2012 RDW 51.6 04/07/2012 PLT 254 04/12/2012 MPV 6.7 04/07/2012 DIFFTYPE AUTOMATED 04/07/2012 CMP: Lab Results Component Value Date NA 134* 04/13/2012 K 3.2* 04/13/2012 CL 98* 04/13/2012 CO2 23 04/13/2012 ANIONGAP 16 04/13/2012 GLUF 98 04/13/2012 BUN 33* 04/13/2012 CREATININE 5.06* 04/13/2012 BCR 7 04/13/2012 CA 7.0* 04/13/2012 CA 6.1* 04/02/2012 PROT 5.3* 04/13/2012 ALB 1.8* 04/13/2012 GLOB 3.5 04/13/2012 BILITOT 0.3 04/13/2012 ALP 97 04/13/2012 AST 28 04/13/2012 ALT 31 04/13/2012 EGFR 13* 04/13/2012 URINE, COLLECTION NOT GIVEN CULTURE >100,000 CFU/ML STAPHYLOCOCCUS AUREUS SUSCEPTIBILITY TO FOLLOW HSV I AB,IGG 7.91 H <0.90 IV FINDINGS: The left internal jugular, subclavian and axillary veins are patent. Normal compressibility , augmentation of flow, and Doppler flow evident within the venous system of the left upper extremity. No evidence of venous thrombosis. Moderate soft tissue swelling noted in the reg ion of the cephalic vein. IMPRESSION: 1. No evidence of left upper extremity vein thrombosis. E NEGATIVE BLOOD, PERIPHERAL DRAW Specimen Description Testing performed at [facility];[address] [place] [address];[place] [address] SPECIAL REQUESTS RHAND SPECIAL REQUESTS Testing performed at [facility];[address] [place] [address];[place] [address] GRAM STAIN GRAM POSITIVE COCCI IN CLUSTERS SEEN IN AEROBIC BOTTLE SMEAR RESULTS CALLED T O AND READ BACK BY: DAVID Díaz/P [address] JC Vance GRAM STAIN Testing performed at [facility];[address] [place] [address];[place] [address] CULTURE STAPHYLOCOCCUS AUREUS ISOLATED A CULTURE GROWTH IN ONE OF TWO BOTTLES A CATHETER TIP Specimen Description Testing performed at [facility];[address] [place] [address];[place] [address] CULTURE >15 COLONIES STAPHYLOCOCCUS AUREUS A PROBLEM LIST Principal Problem: *Renal failure, acute Active Problems: Type II or unspecified type diabetes mellitus without mention of complication, not stated as uncontrolled Amphetamine and other psychostimulant dependence, continuous Hyperphosphatemia Anemia Rash and nonspecific skin eruption Vitamin d deficiency Secondary hyperparathyroidism (of renal origin) Hypocalcemia Hypothyroidism Eczema herpeticum Hypoalbuminemia MSSA (methicillin susceptible Staphylococcus aureus) infection ASSESSMENT & PLAN Patient Active Hospital Problem List: Renal failure, acute (04/02/2012) Creatinines remaining elevated Although improved from before Kidney biopsy completed 04/09 Patient on dialysis Bacteriuria Culture positive for staphylococci. Patient has received nitrofurantoin and this anyway now on daptomycin and clindamycin. Rash and nonspecific skin eruption (04/03/2012) Eczema herpeticum was in the differential. However the presence of bullous lesions, kidney Damage and lesions associated with his ecz ematous skin changes-strongly suggestive of Auto immune diseases/vasculitis/primary dermatol ogic condition. Skin biopsy is still awaited. His ALLIE is however negative. IV exit site infection Line removed and tip sent for culture -This has grown out Staphylococcus aureus confirming line as the source of the bacteremia. Patient on IV clindamycin and daptomycin Ultrasound did not reveal any deep vein thrombosis or collection. However the site remains indurated and is strongly suspicious for a myositis. Right hand edema and wound Continues to be swollen with open wounds. No suggestion of cellulitis at this point Bacteremia Staphylococcus aureus and blood cultures from 04/10 and 04/11. Now also from both sets from 04/12 This is despite clindamycin and daptomycin This is suggestive of an unaddressed focus- will get 2d echo and if negative will Need kaushik . Both the left upper arm at the previous line site ; and the right elbow where there is a sp ontaneous discharge of pus from a wound surrounded by an indurated swelling-are suspicious f oci that may require drainage. Recommend computed tomography scan to decide need for incisio n and debridement. Also will change antibiotic to betalactam which is better for MSSA. In view of pcn allergy will avoid penicllins but will start on ceftriaxone - possiblity of cross reaction- will need to watch closely for reaction Ceftriaxone chosen as no need for renal adjustment . Will need to get repeat blood cultures done today. One dose of daptomycin given on 04/11. Will not re -dose today if ceftriaxone tolerated This patient has repeated picking of the skin and mucosa- with foci Of ongoing staphyloco ccal infection that keep developing -that makes it extremely difficult to clear the bacterem ia. We will need to address the sources aggressively and also address his pruritus and skin col onization. Patient may be need to be moved to an observed bed. Code Status: Full Code Kisha Tello MD 04/13/2012 eva malone, Favio Willoughby MD - 04/13/2012 8:16 AM PDT Progress Notes by Favio Dawkins MD at 04/13/12 0816 Author: Favio Dawkins MD Service: (none) Author Type: Physician Filed: 04/13/12 5814 Date of Service: 04/13/12815 Status: Addendum Economic Development Coordinator: Favio Dawkins MD (Physician) Related Notes: Original Note by Favio Dawkins MD (Physician) filed at 04/13/12 7782 [facility] Service: Hospitalist Progress Note Hospital Day: LOS: 11 days Patient Summary: who presented by ambulance from [facility]. Was there at 04/01 at 2100 due to chest pain. He was given NTG there which relieved his pain. He was found have a creatinine of 14.2 and was hyperkalemic with a K of 7.3. He was given Ca Gluconate, Insulin, D50, albuterol, kayexalate, Bicarb . No fluids given. He also has been using methamphetamine on that day which he says he only recently started. The pt does complain of an "itchy rash." The pt's rash has been present f or the past "4-5 days. And is all over his body. He denies any current chest pain. ER physic tatum has contacted Dr. Timmons who recommends bicarb drip and ER has already started RBC transfu quique. He reports resolution of chest pain. He does not have any PCP care prior to this and i s basically noncompliant with his medications. Denies nausea, vomiting, SOB, headacge. C/o p enile pain post catheterization. SUBJECTIVE Patient is seen and examined at bedside on follow up patient today complains of pain in RUQ after 2 BMS and Overnight, Vital Signs have been stable BP trending downward again patient states less itchy skin , no chest pain, SOB, nausea or vomiting. Scheduled Medications amlodipine 10 mg Oral Daily calcitRIOL 0.25 mcg Oral Daily calcium acetate 1,334 mg Oral TID WC calcium carbonate 1,000 mg Oral Q8H carbamazepine 200 mg Oral TID clindamycin 600 mg Intravenous Q8H epoetin alena 10,000 Units Intravenous Once in dialysis ergocalciferol 50,000 Units Oral Weekly escitalopram 5 mg Oral Daily famotidine 20 mg Oral Daily Or famotidine 20 mg Intravenous Daily heparin (porcine) Intracatheter Once in dialysis heparin (porcine) 1,000 Units Intravenous Once heparin (porcine) 500 Units Intracatheter Once insulin aspart 0-14 Units Subcutaneous TID AC insulin aspart 0-7 Units Subcutaneous Nightly levothyroxine 25 mcg Oral QAM AC metoprolol 100 mg Oral BID pregabalin 25 mg Oral Daily DISCONTD: acyclovir 5 mg/kg ([facility]) Intravenous Q24H DISCONTD: DAPTOmycin (CUBICIN) IV 6 mg/kg Intravenous Once DISCONTD: metoprolol 50 mg Oral BID Continuous Infusions dextrose PRN Medications acetaminophen, acetaminophen, albumin human, albumin human, albuterol, calamine, dextrose, dextrose, dextrose, fentaNYL, fentaNYL, glucagon, glucagon, hydrALAZINE, hydrocodone-acetami nophen, hydrocodone-acetaminophen, insulin aspart, lidocaine, lorazepam, mineral oil-hydroph ilic petrolatum, ondansetron, ondansetron, polyethylene glycol, sodium bicarbonate buffer, D ISCONTD: lorazepam, DISCONTD: ondansetron OBJECTIVE Vital Signs: BP 146/70 | Pulse 79 | Temp(Src) 98.2 F (36.8 C) (Axillary) | Resp 20 | Ht 1.702 m (5' 7") | Wt 97.1 kg (214 lb 1.1 oz) | BMI 33.53 kg/m2 | SpO2 96% Intake/Output Summary (Last 24 hours) at 04/13/12 0816 Last data filed at 04/13/12 0349 Gross per 24 hour Intake 4215 ml Output 4050 ml Net 165 ml General: Alert and oriented x 3 Cardiovascular: Regular rate and rhythm, no murmurs, no thrills. Respiratory: Clear to auscultation, no wheezing or crackles, breathing non labored. Gastrointestinal: Soft, but tender and patient flinches when I barely touch abdomen, posit home bowel sounds Musculoskeletal: no joint erythema or edema. Upper extremities no clubbing, cyanosis, eryt rosetta or edema. Lower extremities no clubbing, cyanosis erythema or edema. Skin: Warm and dry, papular rash all over some bleeding no erythema or warmth, and with war ty excrecenses on fingers, has bandaged biopsy site on chest no bleeding Neurological: cranial nerves II-Xll, and sensation grossly normal. Psychiatric: Normal mood/affect, crying and anxious looking DATA No results found for this basename: TSH:3,T3FREE:3,FREET4:3 in the last 168 hours CBC: Lab Results Component Value Date WBC 17.3* 04/13/2012 RBC 2.28* 04/13/2012 HGB 7.0* 04/13/2012 HGB 7.0* 04/13/2012 HCT 21.0* 04/13/2012 HCT 21.0* 04/13/2012 MCV 92.3 04/13/2012 MCH 30.9 04/13/2012 MCHC 33.5 04/13/2012 RDW 51.6 04/07/2012 PLT 250 04/13/2012 MPV 8.0 04/13/2012 DIFFTYPE MANUAL 04/13/2012 CMP: Lab Results Component Value Date NA 134* 04/13/2012 K 3.2* 04/13/2012 CL 98* 04/13/2012 CO2 23 04/13/2012 ANIONGAP 16 04/13/2012 GLUF 98 04/13/2012 BUN 33* 04/13/2012 CREATININE 5.06* 04/13/2012 BCR 7 04/13/2012 CA 7.0* 04/13/2012 CA 6.1* 04/02/2012 PROT 5.3* 04/13/2012 ALB 1.8* 04/13/2012 GLOB 3.5 04/13/2012 BILITOT 0.3 04/13/2012 ALP 97 04/13/2012 AST 28 04/13/2012 ALT 31 04/13/2012 EGFR 13* 04/13/2012 Albumin: Lab Results Component Value Date ALB 1.8* 04/13/2012 Calcium: No results found for this basename: CALCIUM Ionized Calcium: Lab Results Component Value Date CAITLYN 0.73* 04/07/2012 PH 7.536* 04/07/2012 Magnesium: Lab Results Component Value Date MG 1.7 04/07/2012 Phosphorus: Lab Results Component Value Date PHOS 4.2 04/07/2012 IMAGING Xr Chest 2 View 04/02/2012 CAROL POTTER 1965 47 years Male XR CHEST 2 VIEW FRONTAL AND LATERAL 2 1:00 PM INDICATION: Shortness of breath COMPARISON: None. TECHNIQUE: Two view chest, PA and lateral views FINDINGS: Mild cardiomegaly is demonstrated. There is no mediastinal wi dening or shift. There is no pneumothorax or effusion. Scattered fine reticular markings a re seen along the periphery of the lungs bilaterally in the lower lobes. The pulmonary vasc ulature is normal in caliber. There are no pulmonary nodules. Moderate acromioclavicular o steoarthritis is present. There is mild degenerative disk disease of the thoracic spine. I MPRESSION: 1. Scattered reticular markings in the lower lungs bilaterally which may reflect interstitial changes versus mild edema. Electronically signed by Braden Paige MD on 1 1:[address] Chest Without Contrast 04/07/[address] WITHOUT IV CONTRAST 04/06/2012 HISTORY: Cough. COMPARISON: Chest rad iograph on 04/02/2012. TECHNIQUE: Helical axial scans of the chest without IV contrast. Cor onal reformatted images. FINDINGS: Small pleural effusion bilaterally. Small to moderate pe ricardial effusion, measuring about 13 mm in width. Minimal lower lung atelectasis. No pulmo nary consolidation or mass. No pneumothorax. Trachea and major bronchi appear normal. Mild e nlargement of aortopulmonary window and subcarinal nodes, up to 12 mm in short dimension. Mi nimal atherosclerosis of left anterior descending coronary artery. Upper abdomen demonstrate s no mass or adenopathy. Very small amount of ascites adjacent to the liver. Degenerative ch anges of the spine. Old right clavicle fracture. No acute skeletal abnormality. Diffuse subc utaneous edema. IMPRESSION: 1. Small bilateral pleural effusion. 2. Small to moderate peric ardial effusion. 3. Mild bilateral lower lung atelectasis. 4. Mild enlargement of aortopulmo nary window and subcarinal nodes. 5. Minimal atherosclerosis of left anterior descending cor onary artery. 6. Very small amount of ascites adjacent to the liver. 7. Diffuse subcutaneous edema. Electronically signed by Favio Hughes MD on Apr 07 2012 8:45AM Ultrasound Retroperitoneal Limited 04/02/2012 HISTORY: Acute renal failure. COMPARISON: None. TECHNIQUE: 4-MHz curvilinear sonographic barrientos scale, color flow evaluation of the kidneys and urinary bladder. FINDINGS: Right kidney measures 9.5 by 5.3 x 4 .9 cm, and the left kidney measures 10.6 by 5.0 by 5.9 cm. Both kidneys appear unremarkable. No hydronephrosis. Urinary bladder is empty, with a Newman catheter in place. Ureteral jets are not seen. IMPRESSION: 1. Unremarkable appear ance of the kidneys. 2. Empty urinary bladder with a Newman catheter in place. Electronical ly signed by Wilton Lentz MD on 04/02/2012 11:58 AM Blood culture and needle tip drawn yesterday growing ?MSSA PROBLEM LIST Principal Problem: *Renal failure, acute Active Problems: MSSA (methicillin susceptible Staphylococcus aureus) infection Type II or unspecified type diabetes mellitus without mention of complication, not stated as uncontrolled Amphetamine and other psychostimulant dependence, continuous Hyperphosphatemia Anemia Rash and nonspecific skin eruption Vitamin d deficiency Secondary hyperparathyroidism (of renal origin) Hypocalcemia Hypothyroidism Eczema herpeticum Hypoalbuminemia PLAN Principal Problem: *Renal failure, acute - with Kidney biopsy showing fibrosis and dr. Soria has already jc d patient he will need to be on life time dialysis Also contributory was hypoperfusion, NSA IDs, ACEI, and diarrhea. closely monitoring and started dialysis hopefully will be shortterm . Avoid nephrotoxins. Oliguric. Slightly lts. Maybe Dialysis tomorrow per Dr. Soria Active Problems: Rhabdomyolysis Type II or unspecified type diabetes mellitus without mention of complication, not stated as uncontrolled - Continue insulin coverage continue diabetic diet Essential hypertension, benign - increase Lopressor to 100 BID Amphetamine and other psychostimulant dependence, continuous now off them, advised to stop , Urine drug screen still pending, if positive maybe the reason for uncontrolled BP and his being too cheerful today as I only started Celexa yesterday Hyperphosphatemia improved Anemia reccurred will transfuse two units today staff could not give last night as no IV a ccess. Acidosis improving Rash and nonspecific skin eruption skin biopsy done by awaiting report Vitamin d deficiency/Secondary hyperparathyroidism (of renal origin) continue weekly ergoc alciferol and 1000 mg calcium orally for Hypocalcemia continue to monitor electrolytes yelena y. Hypothyroidism continue with lowest dose Levothroid Eczema herpeticum? On acyclovir and skin biopsy done. ? MSSA Yesterday one out of 2 bottles positive for Gram positive cocci.A sdiscussed with Onelia Tello Continue with clindamycin ID will give another dose of daptomycin today and waitin g on RUQ pain Ct with contrast of abdomen and pelvis, WBC increased and patient is also having l eft arm Ctscanned Left elbow draining lesion as per Dr. Tello do CTSCan of elbow and then have I and D done. I explained lab findings and plan of care to patient and relative tried Patient expressed u nderstanding and agreement and had no more questions for me after my interaction with him. M ore than 35 minutes spent directly face to face with patient for physical examination and ta lking with him and relative at bedside, chart review, coordinating care with other providers , formulating a plan of care and management as well as Computerized Physician Electronics Detail Draftsperson. Code Status: Full Code Favio Dawkins MD 04/13/20128:16 AM onversion Transaction, Provider Unknown - 04/13/2012 6:37 AM PDTFormatting of this note might be diff erent from the original. Progress Notes by Deidre Hudson RN at 04/13/1237 Author: Deidre Hudson RN Service: (none) Author Type: Registered Nurse Filed: 04/13/12 0639 Date of Service: 04/13/12636 Status: Signed Economic Development Coordinator: Deidre Hudson RN (Registered Nurse) Hospitalist notified of positive blood cultures in aerobic bottle 1 of 2, gram positive kym ci as well as morning labs. No new orders given at this time. onver quique Transaction, Provider Unknown - 04/13/2012 2:33 AM PDT Progress Notes by Deidre Hudson RN at 04/13/12232 Author: Deidre Hudson RN Service: (none) Author Type: Registered Nurse Filed: 04/13/12232 Date of Service: 04/13/12232 Status: Signed Economic Development Coordinator: Deidre Hudson RN (Registered Nurse) Pt denies pain, sob, or dizziness. Pt states getting rest, feeling better. Pt appears les s anxious, very cooperative. onver quique Transaction, Provider Unknown - 04/13/2012 1:40 AM PDT Progress Notes by Deidre Hudson RN at 04/13/12139 Author: Deidre Hudson RN Service: (none) Author Type: Registered Nurse Filed: 04/13/12145 Date of Service: 04/13/12139 Status: Signed Economic Development Coordinator: Deidre Hudson RN (Registered Nurse) Pt in restroom upon entering room. Pt reminded to use call light for assistance getting ou t of bed. Pt states understanding. onver quique Transaction, Provider Unknown - 04/13/2012 1:00 AM PDT Progress Notes by Deidre Hudson RN at 04/13/1299 Author: Deidre Hudson RN Service: (none) Author Type: Registered Nurse Filed: 04/13/1299 Date of Service: 04/13/1299 Status: Signed Economic Development Coordinator: Deidre Hudson RN (Registered Nurse) Pt resting, does not appear to be in any distress. Will continue to monitor. onver quique Transaction, Provider Unknown - 04/12/2012 9:30 PM PDT Progress Notes by Deidre Hudson RN at 04/12/122129 Author: Deidre Hudson RN Service: (none) Author Type: Registered Nurse Filed: 04/12/122214 Date of Service: 04/12/122129 Status: Signed Economic Development Coordinator: Deidre Hudson RN (Registered Nurse) Spoke to hospitalist to follow-up regarding loss of IV access and pt very anxious. Orders given for anxiety med and advised MD not available at this time due to other urgent events c urrently occuring in the hospital. Orders given for PICC line insertion in the am. Hospita list aware of pt H/H levels and poor IV access. Pt placed on O2, now resting. Cosmo Lang MD - 04/12/2012 11:54 AM PDTFormatting of this note might be different from the or iginal. Progress Notes by Cosmo Soria MD at 04/12/12 1733 Author: Cosmo Soria MD Service: Nephrology Author Type: Physician Filed: 04/12/12 1215 Date of Service: 04/12/12 1156 Status: Signed Economic Development Coordinator: Cosmo Soria MD (Physician) PCP is Ashly Quick MD, MD LOS: 10 days Carol Potter is a 47 y.o. male who is being followed for TIFFANIE associated with hyperkalemia in t he setting of DM2/HTN/recreational drug user/rhabdomyolysis. He is s/p diagnostic kidney biopsy which shows advanced fibrotic changes with little chance of recovery. Specifically AIN is not demonstrated. Interval history: He was seen with his 04/11/2012. Carol Potter says that he feels 'uncomfortable' today. He is seen on HD today. He is still in a lot of pain from his skin lesions. He continues to be bacteremic. He has been afebrile last 24 hrs. ROS: No fever, chills sweats. No nausea, vomiting. No rashes or pruritis. No oral pain. He had 2 loose BM yesterday. ROS: As in History of Present Illness. 7 area ROS was done and was otherwise negative. Examination: Constitutional: Resting in bed. .He is seen on hemodialysis today. HEENT: Neck supple, no JVD, non icteric sclera. Cardiovascular: S1soft. S2 split not appreciated. No friction rub. No S3. No murmur. LUNGS:: Clear breath sounds bilaterally, no wheezes and no rales. Abdominal: Soft, non tender on palpation, No distension and no mass. There is no rebound t enderness and no guarding. Musculoskeletal: No gross deformity, EXT: B/L LE edema with chronic venous changes. He also has left UE edema. Neurological: No gross focal motor neurologic deficits. Skin: Skin is warm and dry. Multiple bullous lesions all over his body with bloody base. Lines: Right IJ Cuffed catheter in situ. Newman catheter in situ with clear urine. Imaging Renal USG. FINDINGS: Right kidney measures 9.5 by 5.3 x 4 .9 cm, and the left kidney measures 10.6 by 5.0 by 5.9 cm. Both kidneys appear unremarkable. No hydronephrosis. Urinary bladder is empty, with a Newman catheter in place. Ureteral jets are not seen. IMPRESSION: 1. Unremarkable appearance of the kidneys. 2. Empty urinary bladder with a Newman catheter in place. XR CHEST 1 VIEW 04/10/2012 IMPRESSION: 1. Mild congestive heart failure, progressive from the prior study. US DOPPLER VENOUS ARM RIGHT 04/10/2012 IMPRESSION: 1. Noncompressible partially occlusive thrombus throughout the right cephalic vein and rig ht antecubital vein. Scheduled Medications amlodipine 10 mg Oral Daily calcitRIOL 0.25 mcg Oral Daily calcium acetate 1,334 mg Oral TID WC calcium carbonate 1,000 mg Oral Q8H carbamazepine 200 mg Oral TID clindamycin 600 mg Intravenous Q8H DAPTOmycin (CUBICIN) IV 6 mg/kg Intravenous Once epoetin alena 10,000 Units Intravenous Once in dialysis ergocalciferol 50,000 Units Oral Weekly escitalopram 5 mg Oral Daily famotidine 20 mg Oral Daily Or famotidine 20 mg Intravenous Daily heparin (porcine) Intracatheter Once in dialysis heparin (porcine) 1,000 Units Intravenous Once heparin (porcine) 500 Units Intracatheter Once insulin aspart 0-14 Units Subcutaneous TID AC insulin aspart 0-7 Units Subcutaneous Nightly levothyroxine 25 mcg Oral QAM AC lorazepam 1 mg Intravenous Once metoprolol 50 mg Oral BID nitrofurantoin (macrocrystal-monohydrate) 100 mg Oral Nightly pregabalin 25 mg Oral Daily DISCONTD: acyclovir 5 mg/kg ([facility]) Intravenous Q24H DISCONTD: DAPTOmycin (CUBICIN) IV 6 mg/kg Intravenous Once Continuous Infusions dextrose PRN Medications acetaminophen, acetaminophen, albumin human, albumin human, albuterol, calamine, dextrose, dextrose, dextrose, fentaNYL, fentaNYL, glucagon, glucagon, hydrALAZINE, hydrocodone-acetami nophen, hydrocodone-acetaminophen, insulin aspart, lidocaine, mineral oil-hydrophilic petrol atum, ondansetron, ondansetron, ondansetron, polyethylene glycol, sodium bicarbonate buffer Allergy: Allergies Allergen Reactions Penicillins Other (See Comments) unknown Lab Results Component Value Date BUN 49* 04/12/2012 CREATININE 6.19* 04/12/2012 EGFR 10* 04/12/2012 NA 133* 04/12/2012 K 3.4* 04/12/2012 CL 96* 04/12/2012 CO2 24 04/12/2012 CA 7.4* 04/12/2012 PHOS 4.2 04/07/2012 MG 1.7 04/07/2012 ALB 1.9* 04/12/2012 HGB 6.9* 04/12/2012 Component Value Date/Time CREATININE 6.19* 04/12/2012 0516 CREATININE 7.32* 04/11/2012 0220 CREATININE 9.68* 04/10/2012 0435 CREATININE 9.37* 04/09/2012 0507 CREATININE 9.28* 04/08/2012 0530 CREATININE 9.66* 04/07/2012 0530 CREATININE 10.61* 04/06/2012 0520 CREATININE 11.44* 04/05/2012 0510 CREATININE 11.98* 04/04/2012 0605 CREATININE 13.34* 04/03/2012 0505 Component Value Date/Time BUN 49* 04/12/2012 0516 BUN 72* 04/11/2012 0220 BUN 104* 04/10/2012 0435 BUN 97* 04/09/2012 0507 BUN 91* 04/08/2012 0530 BUN 88* 04/07/2012 0530 BUN 93* 04/06/2012 0520 BUN 94* 04/05/2012 0510 BUN 104* 04/04/2012 0605 BUN 106* 04/03/2012 0505 Blood cultures: 04/10/2012 Staph aureus Vital Signs: BP 198/84 | Pulse 79 | Temp(Src) 98.7 F (37.1 C) (Axillary) | Resp 14 | Ht 1.702 m (5' 7") | Wt 98.7 kg (217 lb 9.5 oz) | BMI 34.08 kg/m2 | SpO2 98% I&O Detailed Table: I/O last 3 completed shifts: In: 4350 [P.O.:1300; Other:2800; IV Piggyback:250] Out: 06090 [Urine:1050; Other:9000; Stool:1] Weight change: -1.7 kg (-3 lb 12 oz) Hemodynamics Last 24hrs: Principal Problem: *Renal failure, acute Active Problems: Hypoalbuminemia Rhabdomyolysis Type II or unspecified type diabetes mellitus without mention of complication, not stated as uncontrolled Amphetamine and other psychostimulant dependence, continuous Hyperphosphatemia Anemia Rash and nonspecific skin eruption Vitamin d deficiency Secondary hyperparathyroidism (of renal origin) Hypocalcemia Hypothyroidism Eczema herpeticum MSSA (methicillin susceptible Staphylococcus aureus) infection Assessment and Recommendations: TIFFANIE: Mr. Potter is a 47 y.o. male patient with TIFFANIE with hyperkalemia (likely on basis of advanced i nterstitial fibrosis/vascular disease based on prelim kidney biopsy report) further complica gela by rhabdomyolysis and recreational drug use. He is s/p first HD session 04/10/2012. RENAL FUNCTION: Possibly dialysis dependent VOLUME STATUS: Volume overloaded. HD timeline: 04/10/2012: 3 L UF 04/11/2012: 3 L UF 04/12/2012: Kidney biopsy shows advanced glomeruloscloerosis/fibrosis with no reversible factors isolat ed. It is likely he will remain dialysis dependent. At this time he has cuffed right IJ HD catheter and we would use that. I would hold HD tomorrow and assess his need for HD Saturday. He likely will require maintenance HD and I will discuss with dialysis coordinator "Raj" on Saturday to set him up for maintenance HD. BP: Not at target range. However he has just started HD and we would need to adjust antihyperte nsive medications based on UF. Continue CCB/BBr now. Severe anemia: LDH is minimally high. S Momo is normal. CKD-MBD: Vitamin D deficiency: Secondary hyperparathyroidism: Vitamin D level is low and has been replaced. Electrolytes/Acid base balance: Hyperkalemia (resolved) Severe metabolic acidosis (resolved) Hyperphosphatemia: Continue PO4 binders (calcium based given hypocalcemia) and PO restricted diet. Malnutrition: He is profoundly malnourished in the setting of acute illness and will require aggressive n utritionist support with 1 gm/kg protein diet. Ongoing sepsis with bacteremia: Continue clindamycin per ID (dose adjusted). Diet should be 1 gm/kg protein, 1 gm PO4, 2 gm Na, and 2 gm K restricted diet. All medications should be dosed for an eGFR of less than 15 ml/min/1.73 m2. NSAIDs (including ADAM 2 inhibitors) should not be used. Magnesium and aluminum containing antacids should not be used. Magnesium or phosphorus containing laxatives should not be used. Fluid should be restricted to less than 1.5 L in a 24 hr period. I/O should be monitored strictly. Daily weights should be done. Daily BMP (including Ca, PO4, Mg) should be done. I discussed with Dr. Juancho valentin above at the time of this encounter. COSMO SORIA MD 04/12/2012 uKisha good MD - 04/12/2012 10:42 AM PDT Progress Notes by Kisha Tello MD at 04/12/12 1042 Author: Kisha Tello MD Service: (none) Author Type: Physician Filed: 04/12/12 3482 Date of Service: 04/12/12 1042 Status: Signed Economic Development Coordinator: Kisha Tello MD (Physician) [facility] Service: Infectious Disease Progress Note Hospital Day: LOS: 10 days Post-Op Day: * No surgery found * SUBJECTIVE Patient Summary: 38-year-old male presents with rash, renal failure, rhabdomyolysis, epistaxis, without fevers. There was initial concern for hemoptysis although this consisted of throat clearing during an episode of epistaxis, with no respiratory symptoms and normal c hest x-ray. Airborne isolation was discontinued. He has not received any antibiotics. ID jose miguel pierce was requested of her concern about his skin rashes and possible underlying infection. T esting for HIV, syphilis and blood cultures all negative. Whole blood tuberculosis screen is Also negative. Events overnight- Reports of skin biopsy still pending. Discussed with Dr. Paezout kidney biopsy-no significant changes Seen. Patient remains alert. Getting dialyzed at present 2 episodes of loose stools noted yesterday and one this morning. Scheduled Medications amlodipine 10 mg Oral Daily calcitRIOL 0.25 mcg Oral Daily calcium acetate 1,334 mg Oral TID WC calcium carbonate 1,000 mg Oral Q8H carbamazepine 200 mg Oral TID clindamycin 600 mg Intravenous Q8H DAPTOmycin (CUBICIN) IV 6 mg/kg Intravenous Once epoetin alena 10,000 Units Intravenous Once in dialysis ergocalciferol 50,000 Units Oral Weekly escitalopram 5 mg Oral Daily famotidine 20 mg Oral Daily Or famotidine 20 mg Intravenous Daily heparin (porcine) Intracatheter Once in dialysis heparin (porcine) Intracatheter Once in dialysis heparin (porcine) 1,000 Units Intravenous Once heparin (porcine) 500 Units Intracatheter Once insulin aspart 0-14 Units Subcutaneous TID AC insulin aspart 0-7 Units Subcutaneous Nightly levothyroxine 25 mcg Oral QAM AC lorazepam 1 mg Intravenous Once metoprolol 50 mg Oral BID nitrofurantoin (macrocrystal-monohydrate) 100 mg Oral Nightly pregabalin 25 mg Oral Daily DISCONTD: acyclovir 5 mg/kg ([facility]) Intravenous Q24H DISCONTD: DAPTOmycin (CUBICIN) IV 6 mg/kg Intravenous Once Continuous Infusions dextrose PRN Medications acetaminophen, acetaminophen, albumin human, albumin human, albuterol, calamine, dextrose, dextrose, dextrose, fentaNYL, fentaNYL, glucagon, glucagon, hydrALAZINE, hydrocodone-acetami nophen, hydrocodone-acetaminophen, insulin aspart, lidocaine, mineral oil-hydrophilic petrol atum, ondansetron, ondansetron, ondansetron, polyethylene glycol, sodium bicarbonate buffer OBJECTIVE Vital Signs: BP 178/80 | Pulse 77 | Temp(Src) 98.7 F (37.1 C) (Axillary) | Resp 20 | Ht 1.702 m (5' 7") | Wt 99.8 kg (220 lb 0.3 oz) | BMI 34.46 kg/m2 | SpO2 98% Temp (24hrs), Av.6 F (37 C), Min:98 F (36.7 C), Max:99 F (37.2 C) Physical Exam Exam: Const: Vitals reviewed. No acute distress; Skin: Bilateral lower extremity bullous lesions that rupture leaving bloody base. Excoriations and eczematous lesions that are currently drying up. Wound present on the right hand dorsal surface it appears to be stable. Significant tenderness over the left IV site. Line has been removed. ENT: No thrush. Lungs: Few bilateral scattered rales Heart: RRR, no murmur Abd: soft, NT, + bowel sounds DATA CBC: Lab Results Component Value Date WBC 10.2 04/07/2012 RBC 2.71* 04/07/2012 HGB 7.6* 04/11/2012 HCT 22.5* 04/11/2012 MCV 90.8 04/07/2012 MCH 30.3 04/07/2012 MCHC 33.4 04/07/2012 RDW 51.6 04/07/2012 PLT 261 04/11/2012 MPV 6.7 04/07/2012 DIFFTYPE AUTOMATED 04/07/2012 CMP: Lab Results Component Value Date NA 133* 04/12/2012 K 3.4* 04/12/2012 CL 96* 04/12/2012 CO2 24 04/12/2012 ANIONGAP 16 04/12/2012 GLUF 117* 04/12/2012 BUN 49* 04/12/2012 CREATININE 6.19* 04/12/2012 BCR 8 04/12/2012 CA 7.4* 04/12/2012 CA 6.1* 04/02/2012 PROT 5.2* 04/12/2012 ALB 1.9* 04/12/2012 GLOB 3.3 04/12/2012 BILITOT 0.3 04/12/2012 ALP 103 04/12/2012 AST 35 04/12/2012 ALT 36 04/12/2012 EGFR 10* 04/12/2012 URINE, COLLECTION NOT GIVEN CULTURE >100,000 CFU/ML STAPHYLOCOCCUS AUREUS SUSCEPTIBILITY TO FOLLOW HSV I AB,IGG 7.91 H <0.90 IV FINDINGS: The left internal jugular, subclavian and axillary veins are patent. Normal compressibility , augmentation of flow, and Doppler flow evident within the venous system of the left upper extremity. No evidence of venous thrombosis. Moderate soft tissue swelling noted in the reg ion of the cephalic vein. IMPRESSION: 1. No evidence of left upper extremity vein thrombosis. E NEGATIVE BLOOD, PERIPHERAL DRAW Specimen Description Testing performed at [facility] [place] [place] [address];[place] [address] SPECIAL REQUESTS RHAND SPECIAL REQUESTS Testing performed at [facility] [place];[address] [facility];[place] [address] GRAM STAIN GRAM POSITIVE COCCI IN CLUSTERS SEEN IN AEROBIC BOTTLE SMEAR RESULTS CALLED T O AND READ BACK BY: DAVID Díaz/4RP 1921 JCM A GRAM STAIN Testing performed at [facility];[address] [place] [address];[place] [address] CULTURE STAPHYLOCOCCUS AUREUS ISOLATED A CULTURE GROWTH IN ONE OF TWO BOTTLES A CATHETER TIP Specimen Description Testing performed at [facility];[address] [place] [address];[place] [address] CULTURE >15 COLONIES STAPHYLOCOCCUS AUREUS A PROBLEM LIST Principal Problem: *Renal failure, acute Active Problems: Rhabdomyolysis Type II or unspecified type diabetes mellitus without mention of complication, not stated as uncontrolled Amphetamine and other psychostimulant dependence, continuous Hyperphosphatemia Anemia Rash and nonspecific skin eruption Vitamin d deficiency Secondary hyperparathyroidism (of renal origin) Hypocalcemia Hypothyroidism Eczema herpeticum Hypoalbuminemia MSSA (methicillin susceptible Staphylococcus aureus) infection ASSESSMENT & PLAN Patient Active Hospital Problem List: Renal failure, acute (04/02/2012) Creatinines remaining elevated Although improved from before Kidney biopsy completed 04/09 Bacteriuria Culture positive for staphylococci. Patient has received nitrofurantoin and this anyway now on daptomycin and clindamycin. Rash and nonspecific skin eruption (04/03/2012) Eczema herpeticum was in the differential. However the presence of bullous lesions, kidney Damage and lesions associated with his ecz ematous skin changes-strongly suggestive of Auto immune diseases/vasculitis/primary dermatol ogic condition. Skin biopsy is still awaited. His ALLIE is however negative. IV exit site infection Line removed and tip sent for culture -This has grown out Staphylococcus aureus confirming line as the source of the bacteremia. Patient on IV clindamycin and daptomycin Ultrasound did not reveal any deep vein thrombosis or collection. Right hand edema and wound Continues to be swollen with open wounds. No suggestion of cellulitis at this point Bacteremia Staphylococcus aureus and blood cultures from 04/10 and 04/11. Will need to get repeat blood cultures done today. One dose of daptomycin given on 04/11. Will need a repeat dose tomorrow 04/12 based on the sensitivities. Code Status: Full Code Kisha Tello MD 04/12/2012 eva malone, Favio Willoughby MD - 04/12/2012 8:20 AM PDT Progress Notes by Favio Dawkins MD at 04/12/12819 Author: Favio Dawkins MD Service: Hospitalist Author Type: Physician Filed: 04/13/121639 Date of Service: 04/12/12819 Status: Addendum Economic Development Coordinator: Favio Dawkins MD (Physician) Related Notes: Original Note by Favio Dawkins MD (Physician) filed at 04/12/122019 [facility] Service: Hospitalist Progress Note Hospital Day: LOS: 10 days Patient Summary: who presented by ambulance from [facility]. Was there at 04/01 at 2100 due to chest pain. He was given NTG there which relieved his pain. He was found have a creatinine of 14.2 and was hyperkalemic with a K of 7.3. He was given Ca Gluconate, Insulin, D50, albuterol, kayexalate, Bicarb . No fluids given. He also has been using methamphetamine on that day which he says he only recently started. The pt does complain of an "itchy rash." The pt's rash has been present f or the past "4-5 days. And is all over his body. He denies any current chest pain. ER physic tatum has contacted Dr. Timmons who recommends bicarb drip and ER has already started RBC transfu quique. He reports resolution of chest pain. He does not have any PCP care prior to this and i s basically noncompliant with his medications. Denies nausea, vomiting, SOB, headacge. C/o p enile pain post catheterization. SUBJECTIVE Patient is seen and examined at bedside on follow up patient today seems happier and says e verything is all right seems to be in too high a spirit, Overnight, Vital Signs have been s table BP was trending downward yesterday then high again today, and patient states that they subjectively feel very good , less itchy skin , no chestt pain, SOB, nausea or vomiting. Events Overnight: none Scheduled Medications acyclovir 5 mg/kg ([facility]) Intravenous Q24H amlodipine 10 mg Oral Daily calcitRIOL 0.25 mcg Oral Daily calcium acetate 1,334 mg Oral TID WC calcium carbonate 1,000 mg Oral Q8H carbamazepine 200 mg Oral TID clindamycin 600 mg Intravenous Q8H DAPTOmycin (CUBICIN) IV 6 mg/kg Intravenous Once ergocalciferol 50,000 Units Oral Weekly escitalopram 5 mg Oral Daily famotidine 20 mg Oral Daily Or famotidine 20 mg Intravenous Daily heparin (porcine) Intracatheter Once in dialysis insulin aspart 0-14 Units Subcutaneous TID AC insulin aspart 0-7 Units Subcutaneous Nightly levothyroxine 25 mcg Oral QAM AC lorazepam 1 mg Intravenous Once metoprolol 50 mg Oral BID nitrofurantoin (macrocrystal-monohydrate) 100 mg Oral Nightly pregabalin 25 mg Oral Daily Continuous Infusions dextrose PRN Medications acetaminophen, acetaminophen, albumin human, albuterol, calamine, dextrose, dextrose, dextr ose, fentaNYL, fentaNYL, glucagon, glucagon, hydrALAZINE, hydrocodone-acetaminophen, hydroco done-acetaminophen, insulin aspart, lidocaine, mineral oil-hydrophilic petrolatum, ondansetr on, ondansetron, ondansetron, polyethylene glycol, sodium bicarbonate buffer OBJECTIVE Vital Signs: BP 178/80 | Pulse 77 | Temp(Src) 98.7 F (37.1 C) (Axillary) | Resp 20 | Ht 1.702 m (5' 7") | Wt 99.8 kg (220 lb 0.3 oz) | BMI 34.46 kg/m2 | SpO2 98% Intake/Output Summary (Last 24 hours) at 04/12/12 0820 Last data filed at 04/11/12 1925 Gross per 24 hour Intake 2650 ml Output 5201 ml Net -2551 ml General: Alert and oriented x 3 Cardiovascular: Regular rate and rhythm, no murmurs, no thrills. Respiratory: Clear to auscultation, no wheezing or crackles, breathing non labored. Gastrointestinal: Soft, non-tender, distended, positive bowel sounds Musculoskeletal: no joint erythema or edema. Upper extremities no clubbing, cyanosis, eryt rosetta or edema. Lower extremities no clubbing, cyanosis erythema or edema. Skin: Warm and dry, papular rash all over some bleeding no erythema or warmth, and with war ty excrecenses on fingers, has bandaged biopsy site on chest no bleeding Neurological: cranial nerves II-Xll, and sensation grossly normal. Psychiatric: Normal mood/affect, Normal behavior anxious looking DATA No results found for this basename: TSH:3,T3FREE:3,FREET4:3 in the last 168 hours CBC: Lab Results Component Value Date WBC 10.2 04/07/2012 RBC 2.71* 04/07/2012 HGB 7.6* 04/11/2012 HCT 22.5* 04/11/2012 MCV 90.8 04/07/2012 MCH 30.3 04/07/2012 MCHC 33.4 04/07/2012 RDW 51.6 04/07/2012 PLT 261 04/11/2012 MPV 6.7 04/07/2012 DIFFTYPE AUTOMATED 04/07/2012 CMP: Lab Results Component Value Date NA 133* 04/12/2012 K 3.4* 04/12/2012 CL 96* 04/12/2012 CO2 24 04/12/2012 ANIONGAP 16 04/12/2012 GLUF 117* 04/12/2012 BUN 49* 04/12/2012 CREATININE 6.19* 04/12/2012 BCR 8 04/12/2012 CA 7.4* 04/12/2012 CA 6.1* 04/02/2012 PROT 5.2* 04/12/2012 ALB 1.9* 04/12/2012 GLOB 3.3 04/12/2012 BILITOT 0.3 04/12/2012 ALP 103 04/12/2012 AST 35 04/12/2012 ALT 36 04/12/2012 EGFR 10* 04/12/2012 Albumin: Lab Results Component Value Date ALB 1.9* 04/12/2012 Calcium: No results found for this basename: CALCIUM Ionized Calcium: Lab Results Component Value Date CAITLYN 0.73* 04/07/2012 PH 7.536* 04/07/2012 Magnesium: Lab Results Component Value Date MG 1.7 04/07/2012 Phosphorus: Lab Results Component Value Date PHOS 4.2 04/07/2012 IMAGING Xr Chest 2 View 04/02/2012 CAROL TARIQ 1965 47 years Male XR CHEST 2 VIEW FRONTAL AND LATERAL 2 1:00 PM INDICATION: Shortness of breath COMPARISON: None. TECHNIQUE: Two view chest, PA and lateral views FINDINGS: Mild cardiomegaly is demonstrated. There is no mediastinal wi dening or shift. There is no pneumothorax or effusion. Scattered fine reticular markings a re seen along the periphery of the lungs bilaterally in the lower lobes. The pulmonary vasc ulature is normal in caliber. There are no pulmonary nodules. Moderate acromioclavicular o steoarthritis is present. There is mild degenerative disk disease of the thoracic spine. I MPRESSION: 1. Scattered reticular markings in the lower lungs bilaterally which may reflect interstitial changes versus mild edema. Electronically signed by Braden Paige MD on 1 1:[address] Chest Without Contrast 04/07/[address] WITHOUT IV CONTRAST 04/06/2012 HISTORY: Cough. COMPARISON: Chest rad iograph on 04/02/2012. TECHNIQUE: Helical axial scans of the chest without IV contrast. Cor onal reformatted images. FINDINGS: Small pleural effusion bilaterally. Small to moderate pe ricardial effusion, measuring about 13 mm in width. Minimal lower lung atelectasis. No pulmo nary consolidation or mass. No pneumothorax. Trachea and major bronchi appear normal. Mild e nlargement of aortopulmonary window and subcarinal nodes, up to 12 mm in short dimension. Mi nimal atherosclerosis of left anterior descending coronary artery. Upper abdomen demonstrate s no mass or adenopathy. Very small amount of ascites adjacent to the liver. Degenerative ch anges of the spine. Old right clavicle fracture. No acute skeletal abnormality. Diffuse subc utaneous edema. IMPRESSION: 1. Small bilateral pleural effusion. 2. Small to moderate peric ardial effusion. 3. Mild bilateral lower lung atelectasis. 4. Mild enlargement of aortopulmo nary window and subcarinal nodes. 5. Minimal atherosclerosis of left anterior descending cor onary artery. 6. Very small amount of ascites adjacent to the liver. 7. Diffuse subcutaneous edema. Electronically signed by Favio Hughes MD on Apr 07 2012 8:45AM Ultrasound Retroperitoneal Limited 04/02/2012 HISTORY: Acute renal failure. COMPARISON: None. TECHNIQUE: 4-MHz curvilinear sonographic barrientos scale, color flow evaluation of the kidneys and urinary bladder. FINDINGS: Right kidney measures 9.5 by 5.3 x 4 .9 cm, and the left kidney measures 10.6 by 5.0 by 5.9 cm. Both kidneys appear unremarkable. No hydronephrosis. Urinary bladder is empty, with a Newman catheter in place. Ureteral jets are not seen. IMPRESSION: 1. Unremarkable appear ance of the kidneys. 2. Empty urinary bladder with a Newman catheter in place. Electronical ly signed by Wilton Lentz MD on 04/02/2012 11:58 AM Blood culture and needle tip drawn yesterday growing ?MSSA PROBLEM LIST Principal Problem: *Renal failure, acute Active Problems: MSSA (methicillin susceptible Staphylococcus aureus) infection Rhabdomyolysis Type II or unspecified type diabetes mellitus without mention of complication, not stated as uncontrolled Amphetamine and other psychostimulant dependence, continuous Hyperphosphatemia Anemia Rash and nonspecific skin eruption Vitamin d deficiency Secondary hyperparathyroidism (of renal origin) Hypocalcemia Hypothyroidism Eczema herpeticum Hypoalbuminemia PLAN Principal Problem: *Renal failure, acute - with fibrosis no specific signs of AIN and dr. Soria has already told patient he will need to be on life time dialysis Also contributory was hypoperfusion, NSAIDs, ACEI, and diarrhea. Avoid nephrotoxins. Oliguric. Active Problems: Rhabdomyolysis Type II or unspecified type diabetes mellitus without mention of complication, not stated as uncontrolled - Continue insulin coverage continue diabetic diet Essential hypertension, benign - increase Lopressor to 100 BID Amphetamine and other psychostimulant dependence, continuous now off them, advised to stop , seems to be too cheerfultoday will do Urine drug screen, if positive maybe the reason for uncontrolled BP and his being too cheerful today as I only started Celexa yesterday Hyperphosphatemia improved Anemia reccurred will transfuse two units Acidosis improving Rash and nonspecific skin eruption skin biopsy done by awaiting report Vitamin d deficiency/Secondary hyperparathyroidism (of renal origin) continue weekly ergoc alciferol and 1000 mg calcium orally for Hypocalcemia continue to monitor electrolytes yelena y. Hypothyroidism continue with lowest dose Levothroid Eczema herpeticum? On acyclovir and skin biopsy done. ? MSSA Continue with clindamycin ID gave one dose of daptomycin yesterday and depending on sensitivity might give another dose tomorrow. I explained lab findings and plan of care to patient and relative tried to encourage him ag ainalthough today he does not seem to need much encouragement, Patient expressed understandi ng and agreement and had no more questions for me after my interaction with him. More than 3 5 minutes spent directly face to face with patient for physical examination and talking with him and relative at bedside, chart review, coordinating care with other providers, formulat ing a plan of care and management as well as Computerized Physician Electronics Detail Draftsperson. Code Status: Full Code Favio Dawkins MD 04/12/20128:20 AM Tammie Lang MD - 04/11/2012 3:34 PM PDTFormatting of this note might be different from the origina l. Progress Notes by Cosmo Soria MD at 04/11/12 2484 Author: Cosmo Soria MD Service: Nephrology Author Type: Physician Filed: 04/11/12 5364 Date of Service: 04/11/122 Status: Signed Economic Development Coordinator: Cosmo Soria MD (Physician) PCP is Ashly Quick MD, MD LOS: 9 days Carol Potter is a 47 y.o. male who is being followed for TIFFANIE associated with hyperkalemia in t he setting of DM2/HTN/recreational drug user/rhabdomyolysis. He is s/p diagnostic kidney biopsy which shows advanced fibrotic changes with little chance of recovery. Specifically AIN is not demonstrated. Interval history: He is seen with his . Carol Potter says that he feels 'uncomfortable' today. He is still in a lot of pain from his skin lesions. He continues to be bacteremic. ROS: As in History of Present Illness. 7 area ROS was done and was otherwise negative. Examination: Constitutional: Resting in bed. Sedated with pain medication but easily arouseable.. HEENT: Neck supple, no JVD, non icteric sclera. Cardiovascular: S1soft. S2 split not appreciated. No friction rub. No S3. No murmur. LUNGS:: Clear breath sounds bilaterally, no wheezes and no rales. Abdominal: Soft, non tender on palpation, No distension and no mass. There is no rebound t enderness and no guarding. Musculoskeletal: No gross deformity, EXT: B/L LE edema with chronic venous changes. He also has left UE edema. Neurological: No gross focal motor neurologic deficits. Skin: Skin is warm and dry. Multiple bullous lesions all over his body with bloody base. Lines: Right IJ Cuffed catheter in situ. Newman catheter in situ with clear urine. Imaging Renal USG. FINDINGS: Right kidney measures 9.5 by 5.3 x 4 .9 cm, and the left kidney measures 10.6 by 5.0 by 5.9 cm. Both kidneys appear unremarkable. No hydronephrosis. Urinary bladder is empty, with a Newman catheter in place. Ureteral jets are not seen. IMPRESSION: 1. Unremarkable appearance of the kidneys. 2. Empty urinary bladder with a Newman catheter in place. XR CHEST 1 VIEW 04/10/2012 IMPRESSION: 1. Mild congestive heart failure, progressive from the prior study. US DOPPLER VENOUS ARM RIGHT 04/10/2012 IMPRESSION: 1. Noncompressible partially occlusive thrombus throughout the right cephalic vein and rig ht antecubital vein. Scheduled Medications acyclovir 5 mg/kg ([facility]) Intravenous Q24H amlodipine 10 mg Oral Daily calcitRIOL 0.25 mcg Oral Daily calcium acetate 1,334 mg Oral TID WC calcium carbonate 1,000 mg Oral Q8H carbamazepine 200 mg Oral TID clindamycin 600 mg Intravenous Q8H DAPTOmycin (CUBICIN) IV 6 mg/kg Intravenous Once epoetin alena 10,000 Units Intravenous Once in dialysis ergocalciferol 50,000 Units Oral Weekly famotidine 20 mg Oral Daily Or famotidine 20 mg Intravenous Daily heparin (porcine) Intracatheter Once in dialysis heparin (porcine) Intracatheter Once in dialysis heparin (porcine) Intracatheter Once in dialysis insulin aspart 0-14 Units Subcutaneous TID AC insulin aspart 0-7 Units Subcutaneous Nightly levothyroxine 25 mcg Oral QAM AC metoprolol 50 mg Oral BID midazolam nitrofurantoin (macrocrystal-monohydrate) 100 mg Oral Nightly pregabalin 25 mg Oral Daily DISCONTD: clindamycin 600 mg Intravenous Q8H DISCONTD: sodium chloride 10 mL Intravenous Q8H Continuous Infusions dextrose PRN Medications acetaminophen, acetaminophen, albumin human, albuterol, calamine, dextrose, dextrose, dextr ose, fentaNYL, fentaNYL, glucagon, glucagon, hydrALAZINE, hydrocodone-acetaminophen, hydroco done-acetaminophen, insulin aspart, lidocaine, mineral oil-hydrophilic petrolatum, ondansetr on, ondansetron, ondansetron, polyethylene glycol, sodium bicarbonate buffer, DISCONTD: fent aNYL, DISCONTD: fentaNYL, DISCONTD: midazolam, DISCONTD: midazolam Allergy: Allergies Allergen Reactions Penicillins Other (See Comments) unknown Lab Results Component Value Date BUN 72* 04/11/2012 CREATININE 7.32* 04/11/2012 EGFR 8* 04/11/2012 NA 133* 04/11/2012 K 4.1 04/11/2012 CL 93* 04/11/2012 CO2 28 04/11/2012 CA 7.0* 04/11/2012 PHOS 4.2 04/07/2012 MG 1.7 04/07/2012 ALB 1.7* 04/11/2012 HGB 7.6* 04/11/2012 Component Value Date/Time CREATININE 7.32* 04/11/2012 0220 CREATININE 9.68* 04/10/2012 0435 CREATININE 9.37* 04/09/2012 0507 CREATININE 9.28* 04/08/2012 0530 CREATININE 9.66* 04/07/2012 0530 CREATININE 10.61* 04/06/2012 0520 CREATININE 11.44* 04/05/2012 0510 CREATININE 11.98* 04/04/2012 0605 CREATININE 13.34* 04/03/2012 0505 CREATININE 14.39* 04/02/2012 1126 Component Value Date/Time BUN 72* 04/11/2012 0220 BUN 104* 04/10/2012 0435 BUN 97* 04/09/2012 0507 BUN 91* 04/08/2012 0530 BUN 88* 04/07/2012 0530 BUN 93* 04/06/2012 0520 BUN 94* 04/05/2012 0510 BUN 104* 04/04/2012 0605 BUN 106* 04/03/2012 0505 BUN 122* 04/02/2012 1126 Blood cultures: 04/10/2012 Staph aureus Vital Signs: BP 158/70 | Pulse 97 | Temp(Src) 98.7 F (37.1 C) (Oral) | Resp 20 | Ht 1.702 m (5' 7") | Wt 98.2 kg (216 lb 7.9 oz) | BMI 33.91 kg/m2 | SpO2 98% I&O Detailed Table: I/O last 3 completed shifts: In: 1745 [P.O.:700; I.V.:45; Other:1000] Out: 5600 [Urine:1400; Other:4200] Weight change: -1.6 kg (-3 lb 8.4 oz) Hemodynamics Last 24hrs: Principal Problem: *Renal failure, acute Active Problems: Rhabdomyolysis Type II or unspecified type diabetes mellitus without mention of complication, not stated as uncontrolled Essential hypertension, benign Amphetamine and other psychostimulant dependence, continuous Hyperphosphatemia Anemia Acidosis Rash and nonspecific skin eruption Vitamin d deficiency Secondary hyperparathyroidism (of renal origin) Hypocalcemia Hypothyroidism Eczema herpeticum Assessment and Recommendations: TIFFANIE: Mr. Potter is a 47 y.o. male patient with TIFFANIE with hyperkalemia (likely on basis of advanced i nterstitial fibrosis/vascular disease based on prelim kidney biopsy report) further complica gela by rhabdomyolysis and recreational drug use. He is s/p first HD session 04/10/2012. RENAL FUNCTION: Possibly dialysis dependent VOLUME STATUS: Volume overloaded. HD timeline: 04/10/2012: 04/10/2012: 3 L UF Kidney biopsy shows advanced glomeruloscloerosis/fibrosis with no reversible factors isolat ed. It is likely he will remain dialysis dependent. At this time he has cuffed right IJ HD catheter and we would use that. BP: Not at target range. However he has just started HD and we would need to adjust antihyperte nsive medications based on UF. Continue CCB for now. Severe anemia: I would obtain work up to rule out hemolysis. CKD-MBD: Vitamin D deficiency: Secondary hyperparathyroidism: Vitamin D level is low and has been replaced. Electrolytes/Acid base balance: Hyperkalemia (resolved) Severe metabolic acidosis (resolved) Hyperphosphatemia: Continue PO4 binders (calcium based given hypocalcemia) and PO restricted diet. Malnutrition: He is profoundly malnourished in the setting of acute illness and will require aggressive n utritionist support with 1 gm/kg protein diet. Ongoing sepsis with bacteremia: Continue clindamycin per ID (dose adjusted). Diet should be 1 gm/kg protein, 1 gm PO4, 2 gm Na, and 2 gm K restricted diet. All medications should be dosed for an eGFR of less than 15 ml/min/1.73 m2. NSAIDs (including ADAM 2 inhibitors) should not be used. Magnesium and aluminum containing antacids should not be used. Magnesium or phosphorus containing laxatives should not be used. Fluid should be restricted to less than 1.5 L in a 24 hr period. I/O should be monitored strictly. Daily weights should be done. Daily BMP (including Ca, PO4, Mg) should be done. I discussed with Dr. Dawkins, Dr. Tello, and his the above at the time of this en counter. COSMO SORIA MD 04/11/2012 onversion Transactio n, Provider Unknown - 04/11/2012 3:00 PM PDT Progress Notes by Salima Red RN at 04/11/12 1500 Author: Salima Red RN Service: (none) Author Type: Registered Nurse Filed: 04/11/12 1501 Date of Service: 04/11/12 1500 Status: Signed Economic Development Coordinator: Salima Red RN (Registered Nurse) Dr Tello aware of blood cultures oKathy powell MSW - 04/11/2012 10:33 AM PDT Progress Notes by VANDANA Gonzalez at 04/11/12 1033 Author: VANDANA Gonzalez Service: (none) Author Type: Community Development Officer Filed: 04/11/12 1034 Date of Service: 04/11/12 1033 Status: Signed Economic Development Coordinator: VANDANA Gonzalez (Community Development Officer) Patient's spouse reporting patient is set up for dialysis in [facility], with [facility] to tra nsport to appts. Spouse reports the dialysis center is only 4 miles from their home. Kisha Adamson MD - 04/11/2012 9:05 AM PDT Progress Notes by Kisha Tello MD at 04/11/12904 Author: Kisha Tello MD Service: (none) Author Type: Physician Filed: 04/11/12 1517 Date of Service: 04/11/12904 Status: Addendum Economic Development Coordinator: Kisha Tello MD (Physician) Related Notes: Original Note by Kisha Tello MD (Physician) filed at 04/11/12 6481 [facility] Service: Infectious Disease Progress Note Hospital Day: LOS: 9 days Post-Op Day: * No surgery found * SUBJECTIVE Patient Summary: 38-year-old male presents with rash, renal failure, rhabdomyolysis, epistaxis, without fevers. There was initial concern for hemoptysis although this consisted of throat clearing during an episode of epistaxis, with no respiratory symptoms and normal c hest x-ray. Airborne isolation was discontinued. He has not received any antibiotics. ID jose miguel pierce was requested of her concern about his skin rashes and possible underlying infection. T esting for HIV, syphilis and blood cultures all negative. Whole blood tuberculosis screen is Also negative. Events overnight- Skin biopsy has been completed and so has kidney biopsy. Patient appears much more alert and cheerful today. Multiple bullous lesions present over his feet and upper extremity that rupture leaving a b loody base. Most of the other excoriations/eczematous lesions appear to be drying up. . Scheduled Medications acyclovir 5 mg/kg ([facility]) Intravenous Q24H amlodipine 10 mg Oral Daily calcitRIOL 0.25 mcg Oral Daily calcium acetate 1,334 mg Oral TID WC calcium carbonate 1,000 mg Oral Q8H carbamazepine 200 mg Oral TID clindamycin 600 mg Intravenous Q8H epoetin alena 10,000 Units Intravenous Once in dialysis ergocalciferol 50,000 Units Oral Weekly famotidine 20 mg Oral Daily Or famotidine 20 mg Intravenous Daily heparin (porcine) Intracatheter Once in dialysis heparin (porcine) Intracatheter Once in dialysis heparin (porcine) Intracatheter Once in dialysis insulin aspart 0-14 Units Subcutaneous TID AC insulin aspart 0-7 Units Subcutaneous Nightly levothyroxine 25 mcg Oral QAM AC lidocaine buffered 1% 0.5 mL Subcutaneous Once metoprolol 50 mg Oral BID midazolam nitrofurantoin (macrocrystal-monohydrate) 100 mg Oral Nightly pregabalin 25 mg Oral Daily DISCONTD: clindamycin 600 mg Intravenous Q8H DISCONTD: sodium chloride 10 mL Intravenous Q8H Continuous Infusions dextrose PRN Medications acetaminophen, acetaminophen, albumin human, albuterol, calamine, dextrose, dextrose, dextr ose, fentaNYL, fentaNYL, glucagon, glucagon, hydrALAZINE, hydrocodone-acetaminophen, hydroco done-acetaminophen, insulin aspart, lidocaine, mineral oil-hydrophilic petrolatum, ondansetr on, ondansetron, ondansetron, polyethylene glycol, sodium bicarbonate buffer, DISCONTD: fent aNYL, DISCONTD: fentaNYL, DISCONTD: hydrocodone-acetaminophen DISCONTD: hydrocodone-acetaminophen, DISCONTD: midazolam, DISCONTD: midazolam OBJECTIVE Vital Signs: BP 189/86 | Pulse 90 | Temp(Src) 98.1 F (36.7 C) (Oral) | Resp 22 | Ht 1.702 m (5' 7") | Wt 101.5 kg (223 lb 12.3 oz) | BMI 35.05 kg/m2 | SpO2 98% Temp (24hrs), Av.3 F (37.4 C), Min:98.1 F (36.7 C), Max:102 F (38.9 C) Physical Exam Exam: Const: Vitals reviewed. No acute distress; Skin: Bilateral lower extremity bullous lesions that rupture leaving bloody base. Excoriations and eczematous lesions that are currently drying up. Wound present on the right hand dorsal surface it appears to be stable. Tendon is still present over the right hand but better than yesterday. Significant tenderness over the left IV site. Line has been removed. ENT: No thrush. Lungs: Few bilateral scattered rales Heart: RRR, no murmur Abd: soft, NT, + bowel sounds DATA CBC: Lab Results Component Value Date WBC 10.2 04/07/2012 RBC 2.71* 04/07/2012 HGB 7.6* 04/11/2012 HCT 22.5* 04/11/2012 MCV 90.8 04/07/2012 MCH 30.3 04/07/2012 MCHC 33.4 04/07/2012 RDW 51.6 04/07/2012 PLT 261 04/11/2012 MPV 6.7 04/07/2012 DIFFTYPE AUTOMATED 04/07/2012 CMP: Lab Results Component Value Date NA 133* 04/11/2012 K 4.1 04/11/2012 CL 93* 04/11/2012 CO2 28 04/11/2012 ANIONGAP 16 04/11/2012 GLUF 147* 04/11/2012 BUN 72* 04/11/2012 CREATININE 7.32* 04/11/2012 BCR 10 04/11/2012 CA 7.0* 04/11/2012 CA 6.1* 04/02/2012 PROT 5.8* 04/11/2012 ALB 1.7* 04/11/2012 GLOB 4.0 04/11/2012 BILITOT 0.3 04/11/2012 ALP 115 04/11/2012 AST 67* 04/11/2012 ALT 37 04/11/2012 EGFR 8* 04/11/2012 URINE, COLLECTION NOT GIVEN CULTURE >100,000 CFU/ML STAPHYLOCOCCUS AUREUS SUSCEPTIBILITY TO FOLLOW HSV I AB,IGG 7.91 H <0.90 IV PROBLEM LIST Principal Problem: *Renal failure, acute Active Problems: Rhabdomyolysis Type II or unspecified type diabetes mellitus without mention of complication, not stated as uncontrolled Essential hypertension, benign Amphetamine and other psychostimulant dependence, continuous Hyperphosphatemia Anemia Acidosis Rash and nonspecific skin eruption Vitamin d deficiency Secondary hyperparathyroidism (of renal origin) Hypocalcemia Hypothyroidism Eczema herpeticum ASSESSMENT & PLAN Patient Active Hospital Problem List: Renal failure, acute (04/02/2012) Creatinines remaining elevated greater than 9 Kidney biopsy completed 04/09 Bacteriuria Initial urine cultures were negative. Urine culture has consistently shown greater than 100,000 colonies of staph or cocci. Started on nitrofurantoin 100 mg daily for just 3 days.day 3 today Rash and nonspecific skin eruption (04/03/2012) Started on acyclovir for possibility of eczema herpeticum. [id number] is positive. Would await skin biopsy results although patient has had this done after being on IV acyclo vir for more than 72 hours. Plan on short course and stopping- day 6 today With a combination of bullous lesions, excoriations suggestive of vasculitis, renal failure -highly suggestive of vasculitis/artery immune disease/pemphigus Await biopsy reports. IV exit site infection Line removed and tip sent for culture started on IV clindamycin. He has history of allergy to penicillins. There is still significant tenderness over the left upper extremity. Suggest ultrasound of the left upper extremity. Right hand edema and wound This is suspicious for early infection with open wound on the dorsal surface. Close watching and incision and debridement as needed. Leucocytosis and fever Probably from the bacteremia and cellulitis line site Bacteremia Gram positive cocci in clusters seen on gram stain in blood cx from 04/10 Patient on clindamycin Will give daptomycin one dose today Code Status: Full Code Kisha Tello MD 04/11/2012 Jeanne malone, Favio Willoughby MD - 04/11/2012 8:38 AM PDT Progress Notes by Favio Dawkins MD at 04/11/12837 Author: Favio Dawkins MD Service: (none) Author Type: Physician Filed: 04/11/12 1736 Date of Service: 04/11/12837 Status: Signed Economic Development Coordinator: Favio Dawkins MD (Physician) [facility] Service: Hospitalist Progress Note Hospital Day: LOS: 9 days Patient Summary: who presented by ambulance from [facility]. Was there at 04/01 at 2100 due to chest pain. He was given NTG there which relieved his pain. He was found have a creatinine of 14.2 and was hyperkalemic with a K of 7.3. He was given Ca Gluconate, Insulin, D50, albuterol, kayexalate, Bicarb . No fluids given. He also has been using methamphetamine on that day which he says he only recently started. The pt does complain of an "itchy rash." The pt's rash has been present f or the past "4-5 days. And is all over his body. He denies any current chest pain. ER physic tatum has contacted Dr. Timmons who recommends bicarb drip and ER has already started RBC transfu quique. He reports resolution of chest pain. He does not have any PCP care prior to this and i s basically noncompliant with his medications. Denies nausea, vomiting, SOB, headacge. C/o p enile pain post catheterization. SUBJECTIVE Patient is seen and examined at bedside on follow up and patient were crying as Dr. Seth driscoll had told them he was going to be on dialysis forever and patient stated that all his re latives who had diabetes and had ESRD and needded dialysis all early and had arms and l egs amputated. Patient had first dialysis Overnight, Vital Signs have been stable BP seems to be trending downward, and patient states that they subjectively feel, less itchy skin , n o chestt pain, SOB, nausea or vomiting. Events Overnight: none Scheduled Medications acyclovir 5 mg/kg ([facility]) Intravenous Q24H amlodipine 10 mg Oral Daily calcitRIOL 0.25 mcg Oral Daily calcium acetate 1,334 mg Oral TID WC calcium carbonate 1,000 mg Oral Q8H carbamazepine 200 mg Oral TID clindamycin 600 mg Intravenous Q8H epoetin alena 10,000 Units Intravenous Once in dialysis ergocalciferol 50,000 Units Oral Weekly famotidine 20 mg Oral Daily Or famotidine 20 mg Intravenous Daily heparin (porcine) Intracatheter Once in dialysis heparin (porcine) Intracatheter Once in dialysis heparin (porcine) Intracatheter Once in dialysis insulin aspart 0-14 Units Subcutaneous TID AC insulin aspart 0-7 Units Subcutaneous Nightly levothyroxine 25 mcg Oral QAM AC lidocaine buffered 1% 0.5 mL Subcutaneous Once metoprolol 50 mg Oral BID midazolam nitrofurantoin (macrocrystal-monohydrate) 100 mg Oral Nightly pregabalin 25 mg Oral Daily DISCONTD: clindamycin 600 mg Intravenous Q8H DISCONTD: sodium chloride 10 mL Intravenous Q8H Continuous Infusions dextrose PRN Medications acetaminophen, acetaminophen, albumin human, albuterol, calamine, dextrose, dextrose, dextr ose, fentaNYL, fentaNYL, glucagon, glucagon, hydrALAZINE, hydrocodone-acetaminophen, hydroco done-acetaminophen, insulin aspart, lidocaine, mineral oil-hydrophilic petrolatum, ondansetr on, ondansetron, ondansetron, polyethylene glycol, sodium bicarbonate buffer, DISCONTD: fent aNYL, DISCONTD: fentaNYL, DISCONTD: hydrocodone-acetaminophen DISCONTD: hydrocodone-acetaminophen, DISCONTD: midazolam, DISCONTD: midazolam OBJECTIVE Vital Signs: BP 199/86 | Pulse 90 | Temp(Src) 98.1 F (36.7 C) (Oral) | Resp 22 | Ht 1.702 m (5' 7") | Wt 100.7 kg (222 lb 0.1 oz) | BMI 34.77 kg/m2 | SpO2 98% Intake/Output Summary (Last 24 hours) at 04/11/12 0857 Last data filed at 04/11/12 0449 Gross per 24 hour Intake 1700 ml Output 4850 ml Net -3150 ml General: Alert and oriented x 3 Cardiovascular: Regular rate and rhythm, no murmurs, no thrills. Respiratory: Clear to auscultation, no wheezing or crackles, breathing non labored. Gastrointestinal: Soft, non-tender, distended, positive bowel sounds Musculoskeletal: no joint erythema or edema. Upper extremities no clubbing, cyanosis, eryt rosetta or edema. Lower extremities no clubbing, cyanosis erythema or edema. Skin: Warm and dry, papular rash all over some bleeding no erythema or warmth, and with war ty excrecenses on fingers, has bandaged biopsy site on chest no bleeding Neurological: cranial nerves II-Xll, and sensation grossly normal. Psychiatric: Normal mood/affect, Normal behavior anxious looking DATA No results found for this basename: TSH:3,T3FREE:3,FREET4:3 in the last 168 hours CBC: Lab Results Component Value Date WBC 10.2 04/07/2012 RBC 2.71* 04/07/2012 HGB 7.6* 04/11/2012 HCT 22.5* 04/11/2012 MCV 90.8 04/07/2012 MCH 30.3 04/07/2012 MCHC 33.4 04/07/2012 RDW 51.6 04/07/2012 PLT 261 04/11/2012 MPV 6.7 04/07/2012 DIFFTYPE AUTOMATED 04/07/2012 CMP: Lab Results Component Value Date NA 133* 04/11/2012 K 4.1 04/11/2012 CL 93* 04/11/2012 CO2 28 04/11/2012 ANIONGAP 16 04/11/2012 GLUF 147* 04/11/2012 BUN 72* 04/11/2012 CREATININE 7.32* 04/11/2012 BCR 10 04/11/2012 CA 7.0* 04/11/2012 CA 6.1* 04/02/2012 PROT 5.8* 04/11/2012 ALB 1.7* 04/11/2012 GLOB 4.0 04/11/2012 BILITOT 0.3 04/11/2012 ALP 115 04/11/2012 AST 67* 04/11/2012 ALT 37 04/11/2012 EGFR 8* 04/11/2012 Albumin: Lab Results Component Value Date ALB 1.7* 04/11/2012 Calcium: No results found for this basename: CALCIUM Ionized Calcium: Lab Results Component Value Date CAITLYN 0.73* 04/07/2012 PH 7.536* 04/07/2012 Magnesium: Lab Results Component Value Date MG 1.7 04/07/2012 Phosphorus: Lab Results Component Value Date PHOS 4.2 04/07/2012 IMAGING Xr Chest 2 View 04/02/2012 CAROL POTTER 1965 47 years Male XR CHEST 2 VIEW FRONTAL AND LATERAL 2 1:00 PM INDICATION: Shortness of breath COMPARISON: None. TECHNIQUE: Two view chest, PA and lateral views FINDINGS: Mild cardiomegaly is demonstrated. There is no mediastinal wi dening or shift. There is no pneumothorax or effusion. Scattered fine reticular markings a re seen along the periphery of the lungs bilaterally in the lower lobes. The pulmonary vasc ulature is normal in caliber. There are no pulmonary nodules. Moderate acromioclavicular o steoarthritis is present. There is mild degenerative disk disease of the thoracic spine. I MPRESSION: 1. Scattered reticular markings in the lower lungs bilaterally which may reflect interstitial changes versus mild edema. Electronically signed by Braden Paige MD on 1 1:[address] Chest Without Contrast 04/07/[address] WITHOUT IV CONTRAST 04/06/2012 HISTORY: Cough. COMPARISON: Chest rad iograph on 04/02/2012. TECHNIQUE: Helical axial scans of the chest without IV contrast. Cor onal reformatted images. FINDINGS: Small pleural effusion bilaterally. Small to moderate pe ricardial effusion, measuring about 13 mm in width. Minimal lower lung atelectasis. No pulmo nary consolidation or mass. No pneumothorax. Trachea and major bronchi appear normal. Mild e nlargement of aortopulmonary window and subcarinal nodes, up to 12 mm in short dimension. Mi nimal atherosclerosis of left anterior descending coronary artery. Upper abdomen demonstrate s no mass or adenopathy. Very small amount of ascites adjacent to the liver. Degenerative ch anges of the spine. Old right clavicle fracture. No acute skeletal abnormality. Diffuse subc utaneous edema. IMPRESSION: 1. Small bilateral pleural effusion. 2. Small to moderate peric ardial effusion. 3. Mild bilateral lower lung atelectasis. 4. Mild enlargement of aortopulmo nary window and subcarinal nodes. 5. Minimal atherosclerosis of left anterior descending cor onary artery. 6. Very small amount of ascites adjacent to the liver. 7. Diffuse subcutaneous edema. Electronically signed by Favio Hughes MD on Apr 07 2012 8:45AM Ultrasound Retroperitoneal Limited 04/02/2012 HISTORY: Acute renal failure. COMPARISON: None. TECHNIQUE: 4-MHz curvilinear sonographic barrientos scale, color flow evaluation of the kidneys and urinary bladder. FINDINGS: Right kidney measures 9.5 by 5.3 x 4 .9 cm, and the left kidney measures 10.6 by 5.0 by 5.9 cm. Both kidneys appear unremarkable. No hydronephrosis. Urinary bladder is empty, with a Newman catheter in place. Ureteral jets are not seen. IMPRESSION: 1. Unremarkable appear ance of the kidneys. 2. Empty urinary bladder with a Newman catheter in place. Electronical ly signed by Wilton Lentz MD on 04/02/2012 11:58 AM Blood culture and needle tip drawn yesterday growing ?MSSA PROBLEM LIST Principal Problem: *Renal failure, acute Active Problems: MSSA (methicillin susceptible Staphylococcus aureus) infection Rhabdomyolysis Type II or unspecified type diabetes mellitus without mention of complication, not stated as uncontrolled Amphetamine and other psychostimulant dependence, continuous Hyperphosphatemia Anemia Rash and nonspecific skin eruption Vitamin d deficiency Secondary hyperparathyroidism (of renal origin) Hypocalcemia Hypothyroidism Eczema herpeticum Hypoalbuminemia PLAN Principal Problem: *Renal failure, acute - Most likely secondary to hypoperfusion, NSAIDs, ACEI, and diarrhea . Dr Solorzano following, closely monitoring and started dialysis today hopefully will be esteban erm. Avoid nephrotoxins. Oliguric. Slightly . Had CT guided kidney biopsy today by CHUCK hollis results. Active Problems: Rhabdomyolysis Type II or unspecified type diabetes mellitus without mention of complication, not stated as uncontrolled - Continue insulin coverage continue diabetic diet Essential hypertension, benign - continue Lopressor to 50 BID Amphetamine and other psychostimulant dependence, continuous now off them, advised to stop Hyperphosphatemia improved Anemia stable Acidosis improving Rash and nonspecific skin eruption skin biopsy done by yesterday awaiting repor t Vitamin d deficiency/Secondary hyperparathyroidism (of renal origin) continue weekly ergoc alciferol and 1000 mg calcium orally for Hypocalcemia continue to monitor electrolytes yelena y. Hypothyroidism continue with lowest dose Levothroid Eczema herpeticum? On acyclovir and skin biopsy done. ? MSSA Continue with clindamycin ID gave one dose of daptomycin today. I explained lab findings and plan of care to patient and relative tried to encourage them d espite the bad news offered antidepressant and patient and partner agreed and they verbalize d understanding and agreement and had no more questions for me after my interaction with the m. More than 35 minutes spent directly face to face with patient for physical examination an d talking with him and relative at bedside, chart review, coordinating care with other provi ders, formulating a plan of care and management as well as Computerized Physician Order Entr y. Code Status: Full Code Favio Dawkins MD 04/11/20128:38 AM aSanta greco, MD Frank - 04/10/2012 11:52 PM PDTFormatting of this note might be different from rodrigo ramires. Progress Notes by Frank Wilson MD at 04/10/122351 Author: Frank Wilson MD Service: (none) Author Type: Physician Filed: 04/11/12 0004 Date of Service: 04/10/122351 Status: Signed Economic Development Coordinator: Frank Wilson MD (Physician) Partial Note US report from Radiologist received , consistent with: Ultrasound doppler venous arm right [[id number]] Collected:04/10/122305 Order Status:Comple gela Updated:04/10/122318 Narrative: CAROL TARIQ US DOPPLER VENOUS ARM RIGHT 04/10/2012 9:15 PM HISTORY: 47 years. Male. Swollen right arm. Assess for venous thrombus. TECHNIQUE: Right upper extremity venous Doppler performed with color Doppler and spectral Doppler wave form analysis. COMPARISON: None. FINDINGS: Noncompressible, partially occlusive thrombus noted throughout the cephalic vein and in the antecubital vein. A 14 x 7 mm lymph node is noted near the right internal jugular vein. T he right internal jugular vein itself demonstrates normal flow however compressibility could not be assessed due to the patient unable to tolerate transducer pressure in this region. The right axillary vein, basilic vein and brachial vein are patent. IMPRESSION: 1. Noncompressible partially occlusive thrombus throughout the right cephalic vein and rig ht antecubital vein. A. Noncompressible partially occlusive thrombus of superficial veins of right upper extremity P Conservative management / discussed with nursing (elevate arm, warm compresses), avoid line s on that side onversion T ransaction, Provider Unknown - 04/10/2012 7:11 PM PDTFormatting of this note might be diffe rent from the original. Progress Notes by Nehal Coleman RN at 04/10/121910 Author: Nehal Coleman RN Service: (none) Author Type: Registered Nurse Filed: 04/10/121912 Date of Service: 04/10/121910 Status: Signed Economic Development Coordinator: Nehal Coleman RN (Registered Nurse) Notified Dr. Dawkins of swelling, reddness and warm to touch of L UA IV site. New order s received and implemented. NEHAL COLEMAN RN ostKathy cazares MSW - 04/10/2012 12:38 PM PDT Progress Notes by VANDANA Gonzalez at 04/10/12 1238 Author: VANDANA Gonzalez Service: (none) Author Type: Community Development Officer Filed: 04/10/12 1239 Date of Service: 04/10/12 1238 Status: Signed Economic Development Coordinator: VANDANA Gonzalez (Community Development Officer) Pt is new dialysis, acute with Jeanine Glynn arranging chair appt in dialysis center in [facility]. Anticipate dc possibly Saturday. Family to transport. isha Tello MD - 04/10/2012 11:05 AM PDT Progress Notes by Kisha Tello MD at 04/10/12 1105 Author: Kisha Tello MD Service: (none) Author Type: Physician Filed: 04/10/12 0012 Date of Service: 04/10/12 1105 Status: Signed Economic Development Coordinator: Kisha Tello MD (Physician) [facility] Service: Infectious Disease Progress Note Hospital Day: LOS: 8 days Post-Op Day: * No surgery found * SUBJECTIVE Patient Summary: 38-year-old male presents with rash, renal failure, rhabdomyolysis, epistaxis, without fevers. There was initial concern for hemoptysis although this consisted of throat clearing during an episode of epistaxis, with no respiratory symptoms and normal c hest x-ray. Airborne isolation was discontinued. He has not received any antibiotics. ID jose miguel pierce was requested of her concern about his skin rashes and possible underlying infection. T esting for HIV, syphilis and blood cultures all negative. Whole blood tuberculosis screen is Also negative. Events overnight- Skin biopsy has been completed and so has kidney biopsy. Patient appears depressed and straight continuing to scratch over body. No nausea vomiting or diarrhea . Scheduled Medications acyclovir 5 mg/kg ([facility]) Intravenous Q24H albumin human 12.5 g Intravenous Once amlodipine 10 mg Oral Daily calcitRIOL 0.25 mcg Oral Daily calcium acetate 1,334 mg Oral TID WC calcium carbonate 1,000 mg Oral Q8H carbamazepine 200 mg Oral TID ergocalciferol 50,000 Units Oral Weekly famotidine 20 mg Oral Daily Or famotidine 20 mg Intravenous Daily furosemide 40 mg Intravenous STAT - Now furosemide 40 mg Intravenous Once insulin aspart 0-14 Units Subcutaneous TID AC insulin aspart 0-7 Units Subcutaneous Nightly levothyroxine 25 mcg Oral QAM AC midazolam nitrofurantoin (macrocrystal-monohydrate) 100 mg Oral Nightly DISCONTD: insulin aspart 0-10 Units Subcutaneous TID AC DISCONTD: insulin aspart 0-5 Units Subcutaneous Nightly DISCONTD: metoprolol 50 mg Oral BID Continuous Infusions dextrose DISCONTD: dextrose DISCONTD: custom IV infusion builder Stopped (04/09/121931) PRN Medications acetaminophen, acetaminophen, albuterol, calamine, dextrose, dextrose, dextrose, fentaNYL, fentaNYL, fentaNYL, glucagon, glucagon, hydrALAZINE, hydrocodone-acetaminophen, hydrocodone- acetaminophen, insulin aspart, lidocaine, midazolam, mineral oil-hydrophilic petrolatum, ond ansetron, ondansetron, polyethylene glycol, sodium bicarbonate buffer, DISCONTD: dextrose, D ISCONTD: dextrose, DISCONTD: dextrose, DISCONTD: diphenhydrAMINE, DISCONTD: glucagon DISCONTD: glucagon, DISCONTD: hydrOXYzine, DISCONTD: insulin aspart OBJECTIVE Vital Signs: BP 152/77 | Pulse 82 | Temp(Src) 97.8 F (36.6 C) (Oral) | Resp 16 | Ht 1.702 m (5' 7") | Wt 104.8 kg (231 lb 0.7 oz) | BMI 36.19 kg/m2 | SpO2 100% Temp (24hrs), Av F (36.7 C), Min:97.5 F (36.4 C), Max:98.3 F (36.8 C) Physical Exam Exam: Const: Vitals reviewed. No acute distress; Skin: Baseline Eczematous areas over which there are excoriations present. These appear to be drying well and crusting, and The excoriated lesions are also drying up However His right hand now appears swollen with open wounds, suspicious for new infection. His left arm PICC site exit site appears purulent and erythematous. ENT: No thrush. Lungs: Few bilateral scattered rales Heart: RRR, no murmur Abd: soft, NT, + bowel sounds DATA CBC: Lab Results Component Value Date WBC 10.2 04/07/2012 RBC 2.71* 04/07/2012 HGB 8.2* 04/07/2012 HCT 24.6* 04/07/2012 MCV 90.8 04/07/2012 MCH 30.3 04/07/2012 MCHC 33.4 04/07/2012 RDW 51.6 04/07/2012 PLT 242 04/07/2012 MPV 6.7 04/07/2012 DIFFTYPE AUTOMATED 04/07/2012 CMP: Lab Results Component Value Date NA 131* 04/10/2012 K 5.0* 04/10/2012 CL 89* 04/10/2012 CO2 28 04/10/2012 ANIONGAP 18 04/10/2012 GLUF 159* 04/10/2012 BUN 104* 04/10/2012 CREATININE 9.68* 04/10/2012 BCR 11 04/10/2012 CA 6.9* 04/10/2012 CA 6.1* 04/02/2012 PROT 5.9* 04/10/2012 ALB 2.0* 04/10/2012 GLOB 3.8 04/10/2012 BILITOT 0.4 04/10/2012 ALP 99 04/10/2012 AST 36 04/10/2012 ALT 29 04/10/2012 EGFR 6* 04/10/2012 URINE, COLLECTION NOT GIVEN CULTURE >100,000 CFU/ML STAPHYLOCOCCUS AUREUS SUSCEPTIBILITY TO FOLLOW HSV I AB,IGG 7.91 H <0.90 IV PROBLEM LIST Principal Problem: *Renal failure, acute Active Problems: Rhabdomyolysis Type II or unspecified type diabetes mellitus without mention of complication, not stated as uncontrolled Essential hypertension, benign Amphetamine and other psychostimulant dependence, continuous Hyperphosphatemia Anemia Acidosis Rash and nonspecific skin eruption Vitamin d deficiency Secondary hyperparathyroidism (of renal origin) Hypocalcemia Hypothyroidism Eczema herpeticum ASSESSMENT & PLAN Patient Active Hospital Problem List: Renal failure, acute (04/02/2012) Creatinines remaining elevated greater than 9 Kidney biopsy completed yesterday 04/09 Bacteriuria Initial urine cultures were negative. Urine culture has consistently shown greater than 100,000 colonies of staph or cocci. Started on nitrofurantoin 100 mg daily for just 3 days. Rash and nonspecific skin eruption (04/03/2012) Started on acyclovir for possibility of eczema herpeticum. [id number] is positive. Would await skin biopsy results although patient has had this done after being on IV acyclo vir for more than 72 hours. Plan on short course and stopping IV exit site infection Suggest removal of the IV line, blood cultures to be sent. Patient not on any antibiotics at present. Would start on IV clindamycin. He has history of allergy to penicillins. Right hand swelling. This is suspicious for early infection with open wound on the dorsal surface. Close watching and incision and debridement as needed. Code Status: Full Code Kisha Tello MD 04/10/2012 onversio n Transaction, Provider Unknown - 04/10/2012 10:53 AM PDTFormatting of this note might be di fferent from the original. Progress Notes by Marivel Ocampo at 04/10/12 3469 Author: Marivel Ocampo Service: (none) Author Type: Registered Nurse Filed: 04/10/12 1448 Date of Service: 04/10/12 9830 Status: Signed Economic Development Coordinator: Marivel Ocampo Pt transported back to his room, after bx alert and oriented talking with staff. Dressing r ight posterior cdi. Hob elevated, in contact precautions. Pt stable at time of transport, re port called to Mehul dye. Iv patent and no changes to assessment. av Sean Willis T - 04/10/2012 10:17 AM PDTFormatting of this note might be different from the origi nal. Progress Notes by Sean Solorzano MD at 04/10/12 1017 Author: Sean Solorzano MD Service: Nephrology Author Type: Physician Filed: 04/10/12 1138 Date of Service: 04/10/12 1017 Status: Signed Economic Development Coordinator: Sean Solorzano MD (Physician) [facility] Service: NEPHROLOGY Progress Note Carol Potter 47 y.o. [id number] male Ashly Quick MD, MD Hospital Day: LOS: 8 days SUBJECTIVE Patient seen and examined. ADMITTED WITH Renal failure, acute [place] ADMITTED WITH Renal failure, acute ASSOCIATED WITH FLUID ELECTROLYTE ACID BASE ABNORMALITIES HISTORY OF PRESENT ILLNESS The patient is a 47 y.o. male with significant past medical history of DYSLIPIDEMIA, HYPERTENSION, DM II, ASTHMA, ANEMIA, GOUT, who presented by ambulance from [facility]. Was there at 04/01 at 2100 due to chest pain. He was given NTG there which relieved his pain. He was found have a creatinine of 14.2 and w as hyperkalemic with a K of 7.3. He was given Ca Gluconate, Insulin, D50, albuterol, kayexal ate, Bicarbonate. He also has been using methamphetamine on that day which he says he only r ecently started. The pt does complain of an "itchy rash." The pt's rash has been present for the past 4-5 days and is all over his body. Patient started on bicarb drip and ER has already started PRBC transfusion. He reports reso lution of chest pain. He does not have any PCP care prior to this and is basically noncompli ant with his medications. Denies nausea, vomiting, SOB, headacge. C/o penile pain post newman catheterization. BLACK STOOLS FOR LAST 3-4 DAYS, C/O NOSE BLEED FOR LAST FEW DAYS, NOW STOPPED +VE RASH ITCHY ALL OVER BODY FOR ABOUT A WEEK Nephrology consulted for evaluation and management of ARF (last known cr in 2010 was1.7 per records) Lab Results Component Value Date BUN 104* 04/04/2012 BUN 106* 04/03/2012 BUN 122* 04/02/2012 BUN 114* 04/02/2012 CREATININE 11.98* 04/04/2012 CREATININE 13.34* 04/03/2012 CREATININE 14.39* 04/02/2012 CREATININE 15.12* 04/02/2012 ONSET ACUTE ,severity SEVERE Associated with fluid electrolyte acid base imbalances SEVERE HYPERKALEMIA/ ANEMIA/ ACIDOSI S/ HYPONATREMIA/ HYPERPHOSPHATEMIA RF; NAPROXEN 4 TAB DAILY FOR OVER A WEEK, HEMODYNAMIC EFEFCT OF LISINOPRIL, DIARRHEA WITH B LACK STOOLS, ANEMIA, ? AIN / VASCULITIS WITH RASH Says feel weak BUT better, c/o itchy skin responding some to BENADRYL AND STEROID CEREAM HE STATED Denies cp, sob, nausea, vomiting, diarrhea, fever, headache, rash, cough, dizziness, epista xis now HERE HAPPILY FOR 22 YEARS, LIVES in [place] AT HOME WITH , 04/09/2012; Pt C/O SOB and COULD NOT BREATH LASIX 40 mg x 2 RAT CALLED, Pt IMPROVED SOME TODAY FEELING BETTER, OLIGURIA, SOB BETTER here Past Medical History Diagnosis Date Hyperlipidemia Hypertension Diabetes mellitus type II Asthma Thyroid disease Anemia Past Surgical History Procedure Date Unlisted procedure arthroscopy History Social History Marital Status: Spouse Name: [...] WITH [employer]; KIDSUNEMPLOYED BEFORE WORKED AT [employer] IN [place]/ [employer] NONE ETOH QUIT 15 YEARS AGODRUGS: USES METHAMPHETAMINES PER PATIENTF ATHER HAS COLON CANCER, HEART DISEASEMOTHER 15 YEARS AGONO FH KIDNEY PROBLEMS. History reviewed. No pertinent family history. Scheduled Medications acyclovir 5 mg/kg ([facility]) Intravenous Q24H albumin human 12.5 g Intravenous Once amlodipine 10 mg Oral Daily calcitRIOL 0.25 mcg Oral Daily calcium acetate 1,334 mg Oral TID WC calcium carbonate 1,000 mg Oral Q8H carbamazepine 200 mg Oral TID ergocalciferol 50,000 Units Oral Weekly famotidine 20 mg Oral Daily Or famotidine 20 mg Intravenous Daily furosemide 40 mg Intravenous STAT - Now furosemide 40 mg Intravenous Once insulin aspart 0-14 Units Subcutaneous TID AC insulin aspart 0-7 Units Subcutaneous Nightly levothyroxine 25 mcg Oral QAM AC midazolam nitrofurantoin (macrocrystal-monohydrate) 100 mg Oral Nightly DISCONTD: insulin aspart 0-10 Units Subcutaneous TID AC DISCONTD: insulin aspart 0-5 Units Subcutaneous Nightly DISCONTD: metoprolol 50 mg Oral BID Continuous Infusions dextrose DISCONTD: dextrose DISCONTD: custom IV infusion builder Stopped (04/09/121931) PRN Medications acetaminophen, acetaminophen, albuterol, calamine, dextrose, dextrose, dextrose, fentaNYL, fentaNYL, glucagon, glucagon, hydrALAZINE, hydrocodone-acetaminophen, hydrocodone-acetaminop hen, insulin aspart, lidocaine, mineral oil-hydrophilic petrolatum, ondansetron, ondansetron , polyethylene glycol, sodium bicarbonate buffer, DISCONTD: dextrose, DISCONTD: dextrose, DI SCONTD: dextrose, DISCONTD: diphenhydrAMINE, DISCONTD: glucagon, DISCONTD: glucagon DISCONTD: hydrOXYzine, DISCONTD: insulin aspart Allergy: Allergies Allergen Reactions Penicillins Other (See Comments) unknown OBJECTIVE Vital Signs: BP 155/78 | Pulse 80 | Temp(Src) 97.8 F (36.6 C) (Oral) | Resp 20 | Ht 1.702 m (5' 7") | Wt 104.8 kg (231 lb 0.7 oz) | BMI 36.19 kg/m2 | SpO2 95% I&O Detailed Table: I/O last 3 completed shifts: In: 2530 [P.O.:1700; I.V.:830] Out: 1720 [Urine:1720] Weight change: -0.2 kg (-7.1 oz) Hemodynamics Last 24hrs: Examination: Constitutional: Alert and oriented to person, place, and time. Appears well-developed and w ell-nourished. HEENT: Neck supple, no JVD, non icteric sclera. Cardiovascular: S1+ S2 no friction rub. LUNGS:: ,FEW wheezes and Few rales. Abdominal: Soft, non tender on palpation, No distension and no mass. There is no rebound te nderness and no guarding. Musculoskeletal: No gross deformity, EXT: 2 plus pedal edema and pulses are palpable. Neurological: No gross focal motor neurologic deficits. Skin: Skin is warm and dry. GENERALIZED MACULOPAPULAR AND PUSTULAR RASH, ITCHING Psychiatric: AXOX3, mood and affect ok, memory seems to be intact. NO LYMPHADENOPATHY S/P RENAL BX 04/09/2012 LABS: CBC: Lab Results Component Value Date WBC 10.2 04/07/2012 RBC 2.71* 04/07/2012 HGB 8.2* 04/07/2012 HCT 24.6* 04/07/2012 PLT 242 04/07/2012 DIFFTYPE AUTOMATED 04/07/2012 CMP: No components found with this basename: cmp Lab Results Component Value Date NA 131* 04/10/2012 K 5.0* 04/10/2012 CL 89* 04/10/2012 CO2 28 04/10/2012 ANIONGAP 18 04/10/2012 GLUF 159* 04/10/2012 BUN 104* 04/10/2012 CREATININE 9.68* 04/10/2012 BCR 11 04/10/2012 CA 6.9* 04/10/2012 CA 6.1* 04/02/2012 PROT 5.9* 04/10/2012 ALB 2.0* 04/10/2012 GLOB 3.8 04/10/2012 BILITOT 0.4 04/10/2012 ALP 99 04/10/2012 AST 36 04/10/2012 ALT 29 04/10/2012 EGFR 6* 04/10/2012 BMP: No components found with this basename: bmp Lab Results Component Value Date NA 131* 04/10/2012 K 5.0* 04/10/2012 CL 89* 04/10/2012 CO2 28 04/10/2012 ANIONGAP 18 04/10/2012 GLUF 159* 04/10/2012 BUN 104* 04/10/2012 CREATININE 9.68* 04/10/2012 BCR 11 04/10/2012 CA 6.9* 04/10/2012 CA 6.1* 04/02/2012 EGFR 6* 04/10/2012 Magnesium: Lab Results Component Value Date MG 1.7 04/07/2012 Phosphorus: Lab Results Component Value Date PHOS 4.2 04/07/2012 IRON: Lab Results Component Value Date IRON 55 04/02/2012 Lab Results Component Value Date FERRITIN 139 04/02/2012 LABIRON 38 04/02/2012 No results found for this basename: labprot IMAGING Ct Chest Without Contrast 04/07/[address] WITHOUT IV CONTRAST 04/06/2012 HISTORY: Cough. COMPARISON: Chest rad iograph on 04/02/2012. TECHNIQUE: Helical axial scans of the chest without IV contrast. Cor onal reformatted images. FINDINGS: Small pleural effusion bilaterally. Small to moderate pe ricardial effusion, measuring about 13 mm in width. Minimal lower lung atelectasis. No pulmo nary consolidation or mass. No pneumothorax. Trachea and major bronchi appear normal. Mild e nlargement of aortopulmonary window and subcarinal nodes, up to 12 mm in short dimension. Mi nimal atherosclerosis of left anterior descending coronary artery. Upper abdomen demonstrate s no mass or adenopathy. Very small amount of ascites adjacent to the liver. Degenerative ch anges of the spine. Old right clavicle fracture. No acute skeletal abnormality. Diffuse subc utaneous edema. IMPRESSION: 1. Small bilateral pleural effusion. 2. Small to moderate peric ardial effusion. 3. Mild bilateral lower lung atelectasis. 4. Mild enlargement of aortopulmo nary window and subcarinal nodes. 5. Minimal atherosclerosis of left anterior descending cor onary artery. 6. Very small amount of ascites adjacent to the liver. 7. Diffuse subcutaneous edema. Electronically signed by Favio Hughes MD on Apr 07 2012 8:45AM Xr Chest 1 View 04/10/2012 CAROL POTTER XR CHEST 1 VIEW 04/10/2012 8:19 AM HISTORY: Shortness of breath. TECHNIQUE: One view of the chest. FINDINGS: Compared with April 02, 2012. There is persi stent mild to moderate cardiomegaly. There is developing mild bilateral vascular engorgemen t and indistinctness, suggesting mild interstitial edema. No pneumothorax or pleural effusi ons are seen. IMPRESSION: 1. Mild congestive heart failure, progressive from the prior ellie dy. LEM LIST Principal Problem: *Renal failure, acute Active Problems: Rhabdomyolysis Type II or unspecified type diabetes mellitus without mention of complication, not stated as uncontrolled Essential hypertension, benign Amphetamine and other psychostimulant dependence, continuous Hyperphosphatemia Anemia Acidosis Rash and nonspecific skin eruption Vitamin d deficiency Secondary hyperparathyroidism (of renal origin) Hypocalcemia Hypothyroidism Eczema herpeticum ASSESSMENT & PLAN ARF UNRESOLVED SEVERE LIKELY SECONDARY TO Renal hypoperfusion/ NAPROXEN 4 TAB DAILY FOR OVER A WEEK/ HEMODYNAMIC EFEFCT OF LISINOPRIL/ DIARRHEA WITH BLACK STOOLS/ ANEMIA/ rhabdomyolysis ( cpk not too high) / use of methamphetamine EOSINOPHILIA (WAS on naproxen) URINE EOSINOPHILS NEGATIVE RULED OUT HYDRONEPHROSIS PER US RENAL REVIEWED R.O ANCA VASCULITIS / ANTI GBM GIVEN EPISTAXIS VS ? HEMOPTYSIS THIS AM WITH ARF W/U VITAMIN D,25 HYDROXY <12 Hold lisinopril Stopped naproxen Stopped metformin given risk of lactic acidosis with cr above 1.5 in men Urine studies reviewed C3, C4 levels wnl, hep b/c NR, RF NEG, KAPPA/LAMBDA RATIO WNL, HIV NR RASHID/LAMBDA RATIO 1.89 ANCA, ANTI GBM PENDING Strict I & O, Daily weights Daily RFP Renal diet AVOID NSAIDS/ ADAM-2 INHIBITORS AVOID NEPHROTOXIC MEDS INCLUDING AMINOGLYCOSIDES/ IV CONTRAST Dose all meds for crcl less than 15 mls/min We could not lexa skin bx in timely fashion so got renal bx 04/09/2012 Pt on HIGH DOSES OF STEROIDS , will wait now for renal bx report for further need REQUIRE S HD, PERMACATH TODAY 04/10/2012 D/W DR MEYER VOLUME OVERLOAD: STOPPED IV FLUIDS LASIX 40 mg IV x 2 THIS EVENING HYPERKALEMIA RESOLVED Likely secondary to ARF/ SEVERE ACIDOSIS contributing HYPOKALEMIA NEW REPLACE TO KEEP k GREATER THAN 3.8 REPEAT k LEVEL IN AM ACIDOSIS IMPROVING STOP NAHCO3 DRIP DUE TO VOLUME OVER LOAD SALINE LOCK ANEMIA STABLE GOT PRBCS LIKELY DUE TO GI BLEED GI Dr lake saw patient NL IRON SAT BUT CHECKED POST TRANSFUSION ORAL FESO4 325 mg TID HYPOCALCEMIA SEVERE NEW GIVE CA GLUCONATE 2 GMS IVPB X 1 STARTED ON VIT D AND CALCITRIOL DAILY START TUMS 2 TAB TID VIT D DEF, LEVEL <12 ADDING VIT D 50,000 units Q WEEKLY PO x 4 weeks then 2000 units daily HTN UNCONTROLLED NEW WATCH BP CLOSELY FOR NOW START AMLODIPINE DAILY NARCOTIC ABUSER INCLUDING METH, RECENTLY QUIT HYPERPHOSPHATEMIA LIKELY SECONDARY TO ARF LOW P DIET INCREASE PHOSLO 2 TAB TID WITH MEALS SECONDARY HYPERPARATHYROIDISM CONTINUE CALCITRIOL TIW PTH 255 CASE DISCUSSED IN DETAIL WITH PATIENT/ FAMILY/ HOSPITALIST, ANSWERS ALL QUESTIONS IN DETAIL , VERBALIZES UNDERSTANDING CASE VERY COMPLICATED/INTERESTING PROGNOSIS GUARDED HERE D/W HER AND EXPLAINED THE NEED FOR HD, AGREED, GETTING PERMACTH This afternoon, RENAL BX TODAY ALSO AND HD TODAY WITHOUT HEPARIN S/P RENAL BX 04/10/2012 D/W JEANINE DIALYSIS COORDINATOR FOR PLACEMENT [facility] HD UNIT UNDER DR TIMMONS Time spend over 35 minutes of time spent evaluating the patient, reviewing the data, formul ating a plan and discussion with patient and hospitalist team, more than half of the time sp ent in counseling and coordination of care. SEAN SOLORZANO MD 04/10/2012 Jeanne malone, Favio Willoughby MD - 04/10/2012 8:20 AM PDT Progress Notes by Favio Dawkins MD at 04/10/12819 Author: Favio Dawkins MD Service: (none) Author Type: Physician Filed: 04/10/122032 Date of Service: 04/10/12819 Status: Signed Economic Development Coordinator: Favio Dawkins MD (Physician) [facility] Service: Hospitalist Progress Note Hospital Day: LOS: 8 days Patient Summary: who presented by ambulance from [facility] Was there at 04/01 at 2100 due to chest pain. He was given NTG there which relieved his pain. He was found have a creatinine of 14.2 and was hyperkalemic with a K of 7.3. He was given Ca Gluconate, Insulin, D50, albuterol, kayexalate, Bicarb . No fluids given. He also has been using methamphetamine on that day which he says he only recently started. The pt does complain of an "itchy rash." The pt's rash has been present f or the past "4-5 days. And is all over his body. He denies any current chest pain. ER physic tatum has contacted Dr. Timmons who recommends bicarb drip and ER has already started RBC transfu quique. He reports resolution of chest pain. He does not have any PCP care prior to this and i s basically noncompliant with his medications. Denies nausea, vomiting, SOB, headacge. C/o p enile pain post catheterization. SUBJECTIVE Patient is seen and examined at bedside on follow up. Overnight Vital Signs have been stabl e and patient states that they subjectively feel hungry, more itchy skin and has been scratc misha them and according to significant other he gets agitated when he cant eat and has to wa it, no chestt pain, SOB, nausea or vomiting. Feels hungry as he is NPO for his Kidney biopsy . HAd skin biopsy by Dr. Meza earlier today. Events Overnight: none Scheduled Medications acyclovir 5 mg/kg ([facility]) Intravenous Q24H albumin human 12.5 g Intravenous Once amlodipine 10 mg Oral Daily calcitRIOL 0.25 mcg Oral Daily calcium acetate 1,334 mg Oral TID WC calcium carbonate 1,000 mg Oral Q8H carbamazepine 200 mg Oral TID ergocalciferol 50,000 Units Oral Weekly famotidine 20 mg Oral Daily Or famotidine 20 mg Intravenous Daily furosemide 40 mg Intravenous STAT - Now furosemide 40 mg Intravenous Once insulin aspart 0-14 Units Subcutaneous TID AC insulin aspart 0-7 Units Subcutaneous Nightly levothyroxine 25 mcg Oral QAM AC metoprolol 50 mg Oral BID nitrofurantoin (macrocrystal-monohydrate) 100 mg Oral Nightly DISCONTD: insulin aspart 0-10 Units Subcutaneous TID AC DISCONTD: insulin aspart 0-5 Units Subcutaneous Nightly Continuous Infusions dextrose DISCONTD: dextrose DISCONTD: custom IV infusion builder Stopped (04/09/121931) PRN Medications acetaminophen, acetaminophen, albuterol, calamine, dextrose, dextrose, dextrose, diphenhydr AMINE, fentaNYL, fentaNYL, glucagon, glucagon, hydrALAZINE, hydrocodone-acetaminophen, hydro codone-acetaminophen, hydrOXYzine, insulin aspart, mineral oil-hydrophilic petrolatum, ondan setron, ondansetron, polyethylene glycol, DISCONTD: dextrose, DISCONTD: dextrose, DISCONTD: dextrose, DISCONTD: glucagon, DISCONTD: glucagon, DISCONTD: insulin aspart OBJECTIVE Vital Signs: BP 175/82 | Pulse 80 | Temp(Src) 98.3 F (36.8 C) (Axillary) | Resp 20 | Ht 1.702 m (5' 7") | Wt 104.8 kg (231 lb 0.7 oz) | BMI 36.19 kg/m2 | SpO2 96% Intake/Output Summary (Last 24 hours) at 04/10/12 0820 Last data filed at 04/10/12 0453 Gross per 24 hour Intake 495 ml Output 1200 ml Net -705 ml General: Alert and oriented x 3 Cardiovascular: Regular rate and rhythm, no murmurs, no thrills. Respiratory: Clear to auscultation, no wheezing or crackles, breathing non labored. Gastrointestinal: Soft, non-tender, distended, positive bowel sounds Musculoskeletal: no joint erythema or edema. Upper extremities no clubbing, cyanosis, eryt rosetta or edema. Lower extremities no clubbing, cyanosis erythema or edema. Skin: Warm and dry, papular rash all over some bleeding no erythema or warmth, and with war ty excrecenses on fingers, has bandaged biopsy site on chest no bleeding Neurological: cranial nerves II-Xll, and sensation grossly normal. Psychiatric: Normal mood/affect, Normal behavior anxious looking DATA No results found for this basename: TSH:3,T3FREE:3,FREET4:3 in the last 168 hours CBC: Lab Results Component Value Date WBC 10.2 04/07/2012 RBC 2.71* 04/07/2012 HGB 8.2* 04/07/2012 HCT 24.6* 04/07/2012 MCV 90.8 04/07/2012 MCH 30.3 04/07/2012 MCHC 33.4 04/07/2012 RDW 51.6 04/07/2012 PLT 242 04/07/2012 MPV 6.7 04/07/2012 DIFFTYPE AUTOMATED 04/07/2012 CMP: Lab Results Component Value Date NA 131* 04/10/2012 K 5.0* 04/10/2012 CL 89* 04/10/2012 CO2 28 04/10/2012 ANIONGAP 18 04/10/2012 GLUF 159* 04/10/2012 BUN 104* 04/10/2012 CREATININE 9.68* 04/10/2012 BCR 11 04/10/2012 CA 6.9* 04/10/2012 CA 6.1* 04/02/2012 PROT 5.9* 04/10/2012 ALB 2.0* 04/10/2012 GLOB 3.8 04/10/2012 BILITOT 0.4 04/10/2012 ALP 99 04/10/2012 AST 36 04/10/2012 ALT 29 04/10/2012 EGFR 6* 04/10/2012 Albumin: Lab Results Component Value Date ALB 2.0* 04/10/2012 Calcium: No results found for this basename: CALCIUM Ionized Calcium: Lab Results Component Value Date CAITLYN 0.73* 04/07/2012 PH 7.536* 04/07/2012 Magnesium: Lab Results Component Value Date MG 1.7 04/07/2012 Phosphorus: Lab Results Component Value Date PHOS 4.2 04/07/2012 IMAGING Xr Chest 2 View 04/02/2012 CAROL TARIQ 1965 47 years Male XR CHEST 2 VIEW FRONTAL AND LATERAL 2 1:00 PM INDICATION: Shortness of breath COMPARISON: None. TECHNIQUE: Two view chest, PA and lateral views FINDINGS: Mild cardiomegaly is demonstrated. There is no mediastinal wi dening or shift. There is no pneumothorax or effusion. Scattered fine reticular markings a re seen along the periphery of the lungs bilaterally in the lower lobes. The pulmonary vasc ulature is normal in caliber. There are no pulmonary nodules. Moderate acromioclavicular o steoarthritis is present. There is mild degenerative disk disease of the thoracic spine. I MPRESSION: 1. Scattered reticular markings in the lower lungs bilaterally which may reflect interstitial changes versus mild edema. Electronically signed by Braden Paige MD on 1 1:[address] Chest Without Contrast 04/07/[address] WITHOUT IV CONTRAST 04/06/2012 HISTORY: Cough. COMPARISON: Chest rad iograph on 04/02/2012. TECHNIQUE: Helical axial scans of the chest without IV contrast. Cor onal reformatted images. FINDINGS: Small pleural effusion bilaterally. Small to moderate pe ricardial effusion, measuring about 13 mm in width. Minimal lower lung atelectasis. No pulmo nary consolidation or mass. No pneumothorax. Trachea and major bronchi appear normal. Mild e nlargement of aortopulmonary window and subcarinal nodes, up to 12 mm in short dimension. Mi nimal atherosclerosis of left anterior descending coronary artery. Upper abdomen demonstrate s no mass or adenopathy. Very small amount of ascites adjacent to the liver. Degenerative ch anges of the spine. Old right clavicle fracture. No acute skeletal abnormality. Diffuse subc utaneous edema. IMPRESSION: 1. Small bilateral pleural effusion. 2. Small to moderate peric ardial effusion. 3. Mild bilateral lower lung atelectasis. 4. Mild enlargement of aortopulmo nary window and subcarinal nodes. 5. Minimal atherosclerosis of left anterior descending cor onary artery. 6. Very small amount of ascites adjacent to the liver. 7. Diffuse subcutaneous edema. Electronically signed by Favio Hughes MD on Apr 07 2012 8:45AM Ultrasound Retroperitoneal Limited 04/02/2012 HISTORY: Acute renal failure. COMPARISON: None. TECHNIQUE: 4-MHz curvilinear sonographic barrientos scale, color flow evaluation of the kidneys and urinary bladder. FINDINGS: Right kidney measures 9.5 by 5.3 x 4 .9 cm, and the left kidney measures 10.6 by 5.0 by 5.9 cm. Both kidneys appear unremarkable. No hydronephrosis. Urinary bladder is empty, with a Newman catheter in place. Ureteral jets are not seen. IMPRESSION: 1. Unremarkable appear ance of the kidneys. 2. Empty urinary bladder with a Newman catheter in place. Electronical ly signed by Wilton Lentz MD on 04/02/2012 11:58 AM PROBLEM LIST Principal Problem: *Renal failure, acute Active Problems: Rhabdomyolysis Type II or unspecified type diabetes mellitus without mention of complication, not stated as uncontrolled Essential hypertension, benign Amphetamine and other psychostimulant dependence, continuous Hyperphosphatemia Anemia Acidosis Rash and nonspecific skin eruption Vitamin d deficiency Secondary hyperparathyroidism (of renal origin) Hypocalcemia Hypothyroidism Eczema herpeticum PLAN Principal Problem: *Renal failure, acute - Most likely secondary to hypoperfusion, NSAIDs, ACEI, and diarrhea . Dr Solorzano following, closely monitoring and started dialysis today hopefully will be esteban erm. Avoid nephrotoxins. Oliguric. Slightly . Had CT guided kidney biopsy today by CHUCK hollis results. Active Problems: Rhabdomyolysis Type II or unspecified type diabetes mellitus without mention of complication, not stated as uncontrolled - Continue insulin coverage continue diabetic diet Essential hypertension, benign - continue Lopressor to 50 BID Amphetamine and other psychostimulant dependence, continuous now off them, advised to stop Hyperphosphatemia improved Anemia stable Acidosis improving Rash and nonspecific skin eruption skin biopsy done by yesterday awaiting repor t Vitamin d deficiency/Secondary hyperparathyroidism (of renal origin) continue weekly ergoc alciferol and 1000 mg calcium orally for Hypocalcemia continue to monitor electrolytes yelena y. Hypothyroidism continue with lowest dose Levothroid Eczema herpeticum? On acyclovir and skin biopsy done. ? Infected IV on left arm site ID recommeded starting clindamycin and tip has been cultured after PICC line nurse removed it and stared another IV I explained radiology and lab findings and plan of care to patient and relative and they ve rbalized understanding and agreement and had no more questions for me after my interaction w ith them. More than 35 minutes spent directly face to face with patient for physical examina tion and talking with him and relative at bedside, chart review, coordinating care with othe r providers, formulating a plan of care and management as well as Computerized Physician Ord er Entry. Code Status: Full Code Favio Dawkins MD 04/10/20128:20 AM Maurice Willis T - 04/09/2012 6:02 PM PDT Progress Notes by Sean Solorzano MD at 04/09/121801 Author: Sean Solorzano MD Service: Nephrology Author Type: Physician Filed: 04/09/122241 Date of Service: 04/09/121801 Status: Signed Economic Development Coordinator: Sean Solorzano MD (Physician) [facility] Service: NEPHROLOGY Progress Note Carol Potter 47 y.o. [id number] male Ashly Quick MD, MD Hospital Day: LOS: 7 days SUBJECTIVE Patient seen and examined. ADMITTED WITH Renal failure, acute [place] ADMITTED WITH Renal failure, acute ASSOCIATED WITH FLUID ELECTROLYTE ACID BASE ABNORMALITIES HISTORY OF PRESENT ILLNESS The patient is a 47 y.o. male with significant past medical history of DYSLIPIDEMIA, HYPERTENSION, DM II, ASTHMA, ANEMIA, GOUT, who presented by ambulance from [facility]. Was there at 04/01 at 2100 due to chest pain. He was given NTG there which relieved his pain. He was found have a creatinine of 14.2 and w as hyperkalemic with a K of 7.3. He was given Ca Gluconate, Insulin, D50, albuterol, kayexal ate, Bicarbonate. He also has been using methamphetamine on that day which he says he only r ecently started. The pt does complain of an "itchy rash." The pt's rash has been present for the past 4-5 days and is all over his body. Patient started on bicarb drip and ER has already started PRBC transfusion. He reports reso lution of chest pain. He does not have any PCP care prior to this and is basically noncompli ant with his medications. Denies nausea, vomiting, SOB, headacge. C/o penile pain post newman catheterization. BLACK STOOLS FOR LAST 3-4 DAYS, C/O NOSE BLEED FOR LAST FEW DAYS, NOW STOPPED +VE RASH ITCHY ALL OVER BODY FOR ABOUT A WEEK Nephrology consulted for evaluation and management of ARF (last known cr in 2010 was1.7 per records) Lab Results Component Value Date BUN 104* 04/04/2012 BUN 106* 04/03/2012 BUN 122* 04/02/2012 BUN 114* 04/02/2012 CREATININE 11.98* 04/04/2012 CREATININE 13.34* 04/03/2012 CREATININE 14.39* 04/02/2012 CREATININE 15.12* 04/02/2012 ONSET ACUTE ,severity SEVERE Associated with fluid electrolyte acid base imbalances SEVERE HYPERKALEMIA/ ANEMIA/ ACIDOSI S/ HYPONATREMIA/ HYPERPHOSPHATEMIA RF; NAPROXEN 4 TAB DAILY FOR OVER A WEEK, HEMODYNAMIC EFEFCT OF LISINOPRIL, DIARRHEA WITH B LACK STOOLS, ANEMIA, ? AIN / VASCULITIS WITH RASH Says feel weak BUT better, c/o itchy skin responding some to BENADRYL AND STEROID CEREAM HE STATED Denies cp, sob, nausea, vomiting, diarrhea, fever, headache, rash, cough, dizziness, epista xis now HERE HAPPILY FOR 22 YEARS, LIVES in [place] AT HOME WITH , Pt C/O SOB and COULD NOT BREATH LASIX 40 mg x 2 RAT CALLED, Pt IMPROVED SOME here Past Medical History Diagnosis Date Hyperlipidemia Hypertension Diabetes mellitus type II Asthma Thyroid disease Anemia Past Surgical History Procedure Date Unlisted procedure arthroscopy History Social History Marital Status: Spouse Name: [...] WITH [employer]; KIDSUNEMPLOYED BEFORE WORKED AT [employer] [place] [employer] NONE ETOH QUIT 13 YEARS AGODRUGS: USES METHAMPHETAMINES PER PATIENTF ATHER HAS COLON CANCER, HEART DISEASEMOTHER 13 YEARS AGONO FH KIDNEY PROBLEMS. History reviewed. No pertinent family history. Scheduled Medications acyclovir 5 mg/kg ([facility]) Intravenous Q24H amlodipine 10 mg Oral Daily calcitRIOL 0.25 mcg Oral Daily calcium acetate 1,334 mg Oral TID WC calcium carbonate 1,000 mg Oral Q8H carbamazepine 200 mg Oral TID ergocalciferol 50,000 Units Oral Weekly famotidine 20 mg Oral Daily Or famotidine 20 mg Intravenous Daily insulin aspart 0-14 Units Subcutaneous TID AC insulin aspart 0-7 Units Subcutaneous Nightly levothyroxine 25 mcg Oral QAM AC metoprolol 50 mg Oral BID nitrofurantoin (macrocrystal-monohydrate) 100 mg Oral Nightly DISCONTD: ergocalciferol 50,000 Units Oral Weekly DISCONTD: insulin aspart 0-10 Units Subcutaneous TID AC DISCONTD: insulin aspart 0-5 Units Subcutaneous Nightly DISCONTD: vitamin D 50,000 Units Oral Weekly Continuous Infusions dextrose custom IV infusion builder 30 mL/hr at 04/09/12 0433 DISCONTD: dextrose PRN Medications acetaminophen, acetaminophen, albuterol, calamine, dextrose, dextrose, dextrose, diphenhydr AMINE, fentaNYL, fentaNYL, glucagon, glucagon, hydrALAZINE, hydrocodone-acetaminophen, hydro codone-acetaminophen, hydrOXYzine, insulin aspart, mineral oil-hydrophilic petrolatum, ondan setron, ondansetron, polyethylene glycol, DISCONTD: dextrose, DISCONTD: dextrose, DISCONTD: dextrose, DISCONTD: glucagon, DISCONTD: glucagon, DISCONTD: insulin aspart Allergy: Allergies Allergen Reactions Penicillins Other (See Comments) unknown OBJECTIVE Vital Signs: BP 168/88 | Pulse 77 | Temp(Src) 97.7 F (36.5 C) (Axillary) | Resp 18 | Ht 1.702 m (5' 7") | Wt 105 kg (231 lb 7.7 oz) | BMI 36.26 kg/m2 | SpO2 96% I&O Detailed Table: I/O last 3 completed shifts: In: 4054 [P.O.:3200; I.V.:754; IV Piggyback:100] Out: 1270 [Urine:1270] Weight change: 6.5 kg (14 lb 5.3 oz) Hemodynamics Last 24hrs: Examination: SOB Constitutional: Alert and oriented to person, place, and time. Appears well-developed and w ell-nourished. HEENT: Neck supple, no JVD, non icteric sclera. Cardiovascular: S1+ S2 no friction rub. LUNGS:: ,FEW wheezes and Few rales. Abdominal: Soft, non tender on palpation, No distension and no mass. There is no rebound te nderness and no guarding. Musculoskeletal: No gross deformity, EXT: 2 plus pedal edema and pulses are palpable. Neurological: No gross focal motor neurologic deficits. Skin: Skin is warm and dry. GENERALIZED MACULOPAPULAR AND PUSTULAR RASH, ITCHING Psychiatric: AXOX3, mood and affect ok, memory seems to be intact. NO LYMPHADENOPATHY S/P RENAL BX 04/09/2012 LABS: CBC: Lab Results Component Value Date WBC 10.2 04/07/2012 RBC 2.71* 04/07/2012 HGB 8.2* 04/07/2012 HCT 24.6* 04/07/2012 PLT 242 04/07/2012 DIFFTYPE AUTOMATED 04/07/2012 CMP: No components found with this basename: cmp Lab Results Component Value Date NA 127* 04/09/2012 K 4.5 04/09/2012 CL 87* 04/09/2012 CO2 26 04/09/2012 ANIONGAP 19 04/09/2012 GLUF 235* 04/09/2012 BUN 97* 04/09/2012 CREATININE 9.37* 04/09/2012 BCR 10 04/09/2012 CA 6.6* 04/09/2012 CA 6.1* 04/02/2012 PROT 6.0* 04/09/2012 ALB 2.0* 04/09/2012 GLOB 4.1 04/09/2012 BILITOT 0.3 04/09/2012 ALP 96 04/09/2012 AST 41 04/09/2012 ALT 30 04/09/2012 EGFR 6* 04/09/2012 Magnesium: Lab Results Component Value Date MG 1.7 04/07/2012 Phosphorus: Lab Results Component Value Date PHOS 4.2 04/07/2012 Microalbumen/Creatinine ratio: No results found for this basename: MALBRX, LABCREAU, LABMICR IRON: Lab Results Component Value Date IRON 55 04/02/2012 Lab Results Component Value Date FERRITIN 139 04/02/2012 LABIRON 38 04/02/2012 No results found for this basename: labprot IMAGING Ct Chest Without Contrast 04/07/[address] WITHOUT IV CONTRAST 04/06/2012 HISTORY: Cough. COMPARISON: Chest rad iograph on 04/02/2012. TECHNIQUE: Helical axial scans of the chest without IV contrast. Cor onal reformatted images. FINDINGS: Small pleural effusion bilaterally. Small to moderate pe ricardial effusion, measuring about 13 mm in width. Minimal lower lung atelectasis. No pulmo nary consolidation or mass. No pneumothorax. Trachea and major bronchi appear normal. Mild e nlargement of aortopulmonary window and subcarinal nodes, up to 12 mm in short dimension. Mi nimal atherosclerosis of left anterior descending coronary artery. Upper abdomen demonstrate s no mass or adenopathy. Very small amount of ascites adjacent to the liver. Degenerative ch anges of the spine. Old right clavicle fracture. No acute skeletal abnormality. Diffuse subc utaneous edema. IMPRESSION: 1. Small bilateral pleural effusion. 2. Small to moderate peric ardial effusion. 3. Mild bilateral lower lung atelectasis. 4. Mild enlargement of aortopulmo nary window and subcarinal nodes. 5. Minimal atherosclerosis of left anterior descending cor onary artery. 6. Very small amount of ascites adjacent to the liver. 7. Diffuse subcutaneous edema. Electronically signed by Favio Hughes MD on Apr 07 2012 8:45AM Ultrasound Retroperitoneal Limited 04/02/2012 HISTORY: Acute renal failure. COMPARISON: None. TECHNIQUE: 4-MHz curvilinear son ographic barrientos scale, color flow evaluation of the kidneys and urinary bladder. FINDINGS: Rig ht kidney measures 9.5 by 5.3 x 4 .9 cm, and the left kidney measures 10.6 by 5.0 by 5.9 cm. Both kidneys appear unremarkable. No hydronephrosis. Urinary bladder is empty, with a Newman catheter in place. Ureteral jets are not seen. IMPRESSION: 1. Unremarkable appearance of th e kidneys. 2. Empty urinary bladder with a Newman catheter in place. LEM LIST Principal Problem: *Renal failure, acute Active Problems: Rhabdomyolysis Type II or unspecified type diabetes mellitus without mention of complication, not stated as uncontrolled Essential hypertension, benign Amphetamine and other psychostimulant dependence, continuous Hyperphosphatemia Anemia Acidosis Rash and nonspecific skin eruption Vitamin d deficiency Secondary hyperparathyroidism (of renal origin) Hypocalcemia Hypothyroidism Eczema herpeticum ASSESSMENT & PLAN ARF UNRESOLVED SEVERE LIKELY SECONDARY TO Renal hypoperfusion/ NAPROXEN 4 TAB DAILY FOR OVER A WEEK/ HEMODYNAMIC EFEFCT OF LISINOPRIL/ DIARRHEA WITH BLACK STOOLS/ ANEMIA/ rhabdomyolysis ( cpk not too high) / use of methamphetamine EOSINOPHILIA (WAS on naproxen) URINE EOSINOPHILS NEGATIVE RULED OUT HYDRONEPHROSIS PER US RENAL REVIEWED R.O ANCA VASCULITIS / ANTI GBM GIVEN EPISTAXIS VS ? HEMOPTYSIS THIS AM WITH ARF W/U VITAMIN D,25 HYDROXY <12 Hold lisinopril Stopped naproxen Stopped metformin given risk of lactic acidosis with cr above 1.5 in men Urine studies reviewed C3, C4 levels wnl, hep b/c NR, RF NEG, KAPPA/LAMBDA RATIO WNL, HIV NR RASHID/LAMBDA RATIO 1.89 ANCA, ANTI GBM PENDING Strict I & O, Daily weights Daily RFP Renal diet AVOID NSAIDS/ ADAM-2 INHIBITORS AVOID NEPHROTOXIC MEDS INCLUDING AMINOGLYCOSIDES/ IV CONTRAST Assess daily for need for hd Dose all meds for crcl less than 15 mls/min We could not lexa skin bx in timely fashion so got renal bx 04/09/2012 Pt on HIGH DOSES OF STEROIDS , will now switch from tomorrow To oral prednisone REQUIRE S HD, PERMACATH TOMORROW, D/W DR MEYER VOLUME OVERLOAD: STOPPED IV FLUIDS LASIX 40 mg IV x 2 THIS EVENING HYPERKALEMIA RESOLVED Likely secondary to ARF/ SEVERE ACIDOSIS contributing HYPOKALEMIA NEW REPLACE TO KEEP k GREATER THAN 3.8 REPEAT k LEVEL IN AM ACIDOSIS IMPROVING STOP NAHCO3 DRIP DUE TO VOLUME OVER LOAD SALINE LOCK ANEMIA STABLE GOT PRBCS LIKELY DUE TO GI BLEED GI Dr [place] saw patient NL IRON SAT BUT CHECKED POST TRANSFUSION ORAL FESO4 325 mg TID HYPOCALCEMIA SEVERE NEW GIVE CA GLUCONATE 2 GMS IVPB X 1 STARTED ON VIT D AND CALCITRIOL DAILY START TUMS 2 TAB TID VIT D DEF, LEVEL <12 ADDING VIT D 50,000 units Q WEEKLY PO x 4 weeks then 2000 units daily HTN UNCONTROLLED NEW WATCH BP CLOSELY FOR NOW START AMLODIPINE DAILY NARCOTIC ABUSER INCLUDING METH, RECENTLY QUIT HYPERPHOSPHATEMIA LIKELY SECONDARY TO ARF LOW P DIET INCREASE PHOSLO 2 TAB TID WITH MEALS SECONDARY HYPERPARATHYROIDISM CONTINUE CALCITRIOL TIW PTH 255 CASE DISCUSSED IN DETAIL WITH PATIENT/ FAMILY/ HOSPITALIST, ANSWERS ALL QUESTIONS IN DETAIL , VERBALIZES UNDERSTANDING CASE VERY COMPLICATED/INTERESTING PROGNOSIS GUARDED HERE D/W HER AND EXPLAINED THE NEED FOR HD, AGREED S/P RENAL BX 04/09/2012 D/W JEANINE DIALYSIS COORDINATOR FOR PLACEMENT [facility] HD UNIT UNDER DR TIMMONS Time spend over 35 minutes of time spent evaluating the patient, reviewing the data, formul ating a plan and discussion with patient and hospitalist team, more than half of the time sp ent in counseling and coordination of care. SEAN SOLORZANO MD 04/09/2012 onversio n Transaction, Provider Unknown - 04/09/2012 8:36 AM PDTFormatting of this note might be di fferent from the original. Progress Notes by Khadra Venegas RD, SINDY at 04/09/12835 Author: Khadra Venegas RD, SINDY Service: (none) Author Type: Registered Dietitian Filed: 04/09/12835 Date of Service: 04/09/12835 Status: Signed Economic Development Coordinator: Khadra Venegas RD, SINDY (Product Transfer Pumper) Elevated blood sugars yesterday after last dose of steroids. Recommend: Consider increasi ng to high dose correctional scale insulin. Khadra Venegas RD, MPH, CDE, Product Transfer Pumper 8:36 AM Lawson aguilar, Favio Willoughby MD - 04/09/2012 8:10 AM PDTFormatting of this note might be different f rom the original. Progress Notes by Favio Dawkins MD at 04/09/12809 Author: Favio Dawkins MD Service: (none) Author Type: Physician Filed: 04/09/121814 Date of Service: 04/09/12809 Status: Signed Economic Development Coordinator: Favio Dawkins MD (Physician) [facility] Service: Hospitalist Progress Note Hospital Day: LOS: 7 days Patient Summary: who presented by ambulance from [facility]. Was there at 04/01 at 2100 due to chest pain. He was given NTG there which relieved his pain. He was found have a creatinine of 14.2 and was hyperkalemic with a K of 7.3. He was given Ca Gluconate, Insulin, D50, albuterol, kayexalate, Bicarb . No fluids given. He also has been using methamphetamine on that day which he says he only recently started. The pt does complain of an "itchy rash." The pt's rash has been present f or the past "4-5 days. And is all over his body. He denies any current chest pain. ER physic tatum has contacted Dr. Timmons who recommends bicarb drip and ER has already started RBC transfu quique. He reports resolution of chest pain. He does not have any PCP care prior to this and i s basically noncompliant with his medications. Denies nausea, vomiting, SOB, headacge. C/o p enile pain post catheterization. SUBJECTIVE Patient is seen and examined at bedside on follow up. Overnight Vital Signs have been stabl e and patient states that they subjectively feel hungry, more itchy skin and has been scratc misha them and according to significant other he gets agitated when he cant eat and has to wa it, no chestt pain, SOB, nausea or vomiting. Feels hungry as he is NPO for his Kidney biopsy . HAd skin biopsy by Dr. Meza earlier today. Events Overnight: none Scheduled Medications acyclovir 5 mg/kg ([facility]) Intravenous Q24H amlodipine 10 mg Oral Daily calcitRIOL 0.25 mcg Oral Daily calcium acetate 1,334 mg Oral TID calcium carbonate 1,000 mg Oral Q8H carbamazepine 200 mg Oral TID ergocalciferol 50,000 Units Oral Weekly famotidine 20 mg Oral Daily Or famotidine 20 mg Intravenous Daily insulin aspart 0-10 Units Subcutaneous TID AC insulin aspart 0-5 Units Subcutaneous Nightly levothyroxine 25 mcg Oral QAM AC methylPREDNISolone 500 mg Intravenous Daily metoprolol 50 mg Oral BID DISCONTD: ergocalciferol 50,000 Units Oral Weekly DISCONTD: metoprolol 25 mg Oral BID DISCONTD: vitamin D 50,000 Units Oral Weekly Continuous Infusions dextrose custom IV infusion builder 30 mL/hr at 04/09/12 0433 PRN Medications acetaminophen, acetaminophen, albuterol, dextrose, dextrose, dextrose, diphenhydrAMINE, glu cagon, glucagon, hydrALAZINE, hydrOXYzine, insulin aspart, mineral oil-hydrophilic petrolatu m, ondansetron, ondansetron, polyethylene glycol OBJECTIVE Vital Signs: BP 165/87 | Pulse 81 | Temp(Src) 97.6 F (36.4 C) (Axillary) | Resp 20 | Ht 1.702 m (5' 7") | Wt 105 kg (231 lb 7.7 oz) | BMI 36.26 kg/m2 | SpO2 98% Intake/Output Summary (Last 24 hours) at 04/09/12 0810 Last data filed at 04/09/12 0653 Gross per 24 hour Intake 3285 ml Output 970 ml Net 2315 ml General: Alert and oriented x 3 Cardiovascular: Regular rate and rhythm, no murmurs, no thrills. Respiratory: Clear to auscultation, no wheezing or crackles, breathing non labored. Gastrointestinal: Soft, non-tender, distended, positive bowel sounds Musculoskeletal: no joint erythema or edema. Upper extremities no clubbing, cyanosis, eryt rosetta or edema. Lower extremities no clubbing, cyanosis erythema or edema. Skin: Warm and dry, papular rash all over some bleeding no erythema or warmth, and with war ty excrecenses on fingers, has bandaged biopsy site on chest no bleeding Neurological: cranial nerves II-Xll, and sensation grossly normal. Psychiatric: Normal mood/affect, Normal behavior anxious looking DATA Lab 04/03/12 0505 TSH 16.60* T3FREE -- FREET4 0.6* CBC: Lab Results Component Value Date WBC 10.2 04/07/2012 RBC 2.71* 04/07/2012 HGB 8.2* 04/07/2012 HCT 24.6* 04/07/2012 MCV 90.8 04/07/2012 MCH 30.3 04/07/2012 MCHC 33.4 04/07/2012 RDW 51.6 04/07/2012 PLT 242 04/07/2012 MPV 6.7 04/07/2012 DIFFTYPE AUTOMATED 04/07/2012 CMP: Lab Results Component Value Date NA 127* 04/09/2012 K 4.5 04/09/2012 CL 87* 04/09/2012 CO2 26 04/09/2012 ANIONGAP 19 04/09/2012 GLUF 235* 04/09/2012 BUN 97* 04/09/2012 CREATININE 9.37* 04/09/2012 BCR 10 04/09/2012 CA 6.6* 04/09/2012 CA 6.1* 04/02/2012 PROT 6.0* 04/09/2012 ALB 2.0* 04/09/2012 GLOB 4.1 04/09/2012 BILITOT 0.3 04/09/2012 ALP 96 04/09/2012 AST 41 04/09/2012 ALT 30 04/09/2012 EGFR 6* 04/09/2012 Albumin: Lab Results Component Value Date ALB 2.0* 04/09/2012 Calcium: No results found for this basename: CALCIUM Ionized Calcium: Lab Results Component Value Date CAITLYN 0.73* 04/07/2012 PH 7.536* 04/07/2012 Magnesium: Lab Results Component Value Date MG 1.7 04/07/2012 Phosphorus: Lab Results Component Value Date PHOS 4.2 04/07/2012 IMAGING Xr Chest 2 View 04/02/2012 CAROL POTTER 1965 47 years Male XR CHEST 2 VIEW FRONTAL AND LATERAL 2 1:00 PM INDICATION: Shortness of breath COMPARISON: None. TECHNIQUE: Two view chest, PA and lateral views FINDINGS: Mild cardiomegaly is demonstrated. There is no mediastinal wi dening or shift. There is no pneumothorax or effusion. Scattered fine reticular markings a re seen along the periphery of the lungs bilaterally in the lower lobes. The pulmonary vasc ulature is normal in caliber. There are no pulmonary nodules. Moderate acromioclavicular o steoarthritis is present. There is mild degenerative disk disease of the thoracic spine. I MPRESSION: 1. Scattered reticular markings in the lower lungs bilaterally which may reflect interstitial changes versus mild edema. Electronically signed by Braden Paige MD on 1 1:[address] Chest Without Contrast 04/07/[address] WITHOUT IV CONTRAST 04/06/2012 HISTORY: Cough. COMPARISON: Chest rad iograph on 04/02/2012. TECHNIQUE: Helical axial scans of the chest without IV contrast. Cor onal reformatted images. FINDINGS: Small pleural effusion bilaterally. Small to moderate pe ricardial effusion, measuring about 13 mm in width. Minimal lower lung atelectasis. No pulmo nary consolidation or mass. No pneumothorax. Trachea and major bronchi appear normal. Mild e nlargement of aortopulmonary window and subcarinal nodes, up to 12 mm in short dimension. Mi nimal atherosclerosis of left anterior descending coronary artery. Upper abdomen demonstrate s no mass or adenopathy. Very small amount of ascites adjacent to the liver. Degenerative ch anges of the spine. Old right clavicle fracture. No acute skeletal abnormality. Diffuse subc utaneous edema. IMPRESSION: 1. Small bilateral pleural effusion. 2. Small to moderate peric ardial effusion. 3. Mild bilateral lower lung atelectasis. 4. Mild enlargement of aortopulmo nary window and subcarinal nodes. 5. Minimal atherosclerosis of left anterior descending cor onary artery. 6. Very small amount of ascites adjacent to the liver. 7. Diffuse subcutaneous edema. Electronically signed by Favio Hughes MD on Apr 07 2012 8:45AM Ultrasound Retroperitoneal Limited 04/02/2012 HISTORY: Acute renal failure. COMPARISON: None. TECHNIQUE: 4-MHz curvilinear sonographic barrientos scale, color flow evaluation of the kidneys and urinary bladder. FINDINGS: Right kidney measures 9.5 by 5.3 x 4 .9 cm, and the left kidney measures 10.6 by 5.0 by 5.9 cm. Both kidneys appear unremarkable. No hydronephrosis. Urinary bladder is empty, with a Newman catheter in place. Ureteral jets are not seen. IMPRESSION: 1. Unremarkable appear ance of the kidneys. 2. Empty urinary bladder with a Newman catheter in place. Electronical ly signed by Wilotn Lentz MD on 04/02/2012 11:58 AM PROBLEM LIST Principal Problem: *Renal failure, acute Active Problems: Rhabdomyolysis Type II or unspecified type diabetes mellitus without mention of complication, not stated as uncontrolled Essential hypertension, benign Amphetamine and other psychostimulant dependence, continuous Hyperphosphatemia Anemia Acidosis Rash and nonspecific skin eruption Vitamin d deficiency Secondary hyperparathyroidism (of renal origin) Hypocalcemia Hypothyroidism Eczema herpeticum PLAN Principal Problem: *Renal failure, acute - Most likely secondary to hypoperfusion, NSAIDs, ACEI, and diarrhea . Dr Solorzano following, closely monitoring for possible hemodialysis if no improvement. Avoid nephrotoxins. Oliguric. Slightly improving solumedrol topped today. Was Supposed to have CT guided kidney biopsy today but IR unbale to do it will be done tomorrow. Active Problems: Rhabdomyolysis Type II or unspecified type diabetes mellitus without mention of complication, not stated as uncontrolled - Continue insulin coverage continue diabetic diet Essential hypertension, benign - Uncontrol on current regimen most likely secondary to Saulo al failure. Nephrology following, Will increase Lopressor to 50 BID Amphetamine and other psychostimulant dependence, continuous now off them, advised to stop Hyperphosphatemia improved Anemia stable Acidosis improving Rash and nonspecific skin eruption skin biopsy done by today. Vitamin d deficiency/Secondary hyperparathyroidism (of renal origin) continue weekly ergoc alciferol and 1000 mg calcium orally for Hypocalcemia continue to monitor electrolytes yelena y. Hypothyroidism continue with lowest dose Levothroid Eczema herpeticum? On acyclovir and skin biopsy done. I explained radiology and lab findings and plan of care to patient and relative and they ve rbalized understanding and agreement and had no more questions for me after my interaction w ith them. More than 35 minutes spent directly face to face with patient for physical examina tion and talking with him and relative at bedside, chart review, coordinating care with othe r providers, formulating a plan of care and management as well as Computerized Physician Ord er Entry. Code Status: Full Code Favio Dawkins MD 04/09/20128:10 AM oster, Cat hrbrittney, [employer] - 04/08/2012 3:44 PM PDTFormatting of this note might be different from the origi nal. Progress Notes by VANDANA Gonzalez at 04/08/12 1544 Author: VANDANA Gonzalez Service: (none) Author Type: Community Development Officer Filed: 04/08/12 1545 Date of Service: 04/08/12 154 Status: Signed Economic Development Coordinator: VANDANA Gonzalez (Community Development Officer) At patient's consent and request CM confirmed to Ced at [facility] that patient continued to be hospitalized on behalf of sister so she could obtain a gas voucher to visit her broth er. onversion Transact ion, Provider Unknown - 04/08/2012 3:26 PM PDTFormatting of this note might be different fr om the original. Progress Notes by Khadra Venegas RD, CDE at 04/08/12 1526 Author: Khadra Venegas RD, CDE Service: (none) Author Type: Registered Dietitian Filed: 04/08/12 1527 Date of Service: 04/08/12 152 Status: Signed Economic Development Coordinator: Khadra Venegas RD, CDE (Product Transfer Pumper) Pt with elevated blood sugars d/t high dose steroids. Steroids stopped today. Anticipate blood sugars to normalize as HbA1c is within a normal range. Will continue to follow for bl ood sugars. Khadra Vneegas RD, MPH, CDE, Product Transfer Pumper 04/08/2012 3:27 PM Sean Willis T - 04/08/2012 2:33 PM PDTFormatting of this note might be different from the origi nal. Progress Notes by Sean Solorzano MD at 04/08/12 1433 Author: Sean Solorzano MD Service: Nephrology Author Type: Physician Filed: 04/08/12 1702 Date of Service: 04/08/12 1433 Status: Signed Economic Development Coordinator: Sean Solorzano MD (Physician) [facility] Service: NEPHROLOGY Progress Note Carol Potter 47 y.o. [id number] male Ashly Quick MD, MD Hospital Day: LOS: 6 days SUBJECTIVE Patient seen and examined. ADMITTED WITH Renal failure, acute [facility] ADMITTED WITH Renal failure, acute ASSOCIATED WITH FLUID ELECTROLYTE ACID BASE ABNORMALITIES HISTORY OF PRESENT ILLNESS The patient is a 47 y.o. male with significant past medical history of DYSLIPIDEMIA, HYPERTENSION, DM II, ASTHMA, ANEMIA, GOUT, who presented by ambulance from [facility]. Was there at 04/01 at 2100 due to chest pain. He was given NTG there which relieved his pain. He was found have a creatinine of 14.2 and w as hyperkalemic with a K of 7.3. He was given Ca Gluconate, Insulin, D50, albuterol, kayexal ate, Bicarbonate. He also has been using methamphetamine on that day which he says he only r ecently started. The pt does complain of an "itchy rash." The pt's rash has been present for the past 4-5 days and is all over his body. Patient started on bicarb drip and ER has already started PRBC transfusion. He reports reso lution of chest pain. He does not have any PCP care prior to this and is basically noncompli ant with his medications. Denies nausea, vomiting, SOB, headacge. C/o penile pain post newman catheterization. BLACK STOOLS FOR LAST 3-4 DAYS, C/O NOSE BLEED FOR LAST FEW DAYS, NOW STOPPED +VE RASH ITCHY ALL OVER BODY FOR ABOUT A WEEK Nephrology consulted for evaluation and management of ARF (last known cr in 2010 was1.7 per records) Lab Results Component Value Date BUN 104* 04/04/2012 BUN 106* 04/03/2012 BUN 122* 04/02/2012 BUN 114* 04/02/2012 CREATININE 11.98* 04/04/2012 CREATININE 13.34* 04/03/2012 CREATININE 14.39* 04/02/2012 CREATININE 15.12* 04/02/2012 ONSET ACUTE ,severity SEVERE Associated with fluid electrolyte acid base imbalances SEVERE HYPERKALEMIA/ ANEMIA/ ACIDOSI S/ HYPONATREMIA/ HYPERPHOSPHATEMIA RF; NAPROXEN 4 TAB DAILY FOR OVER A WEEK, HEMODYNAMIC EFEFCT OF LISINOPRIL, DIARRHEA WITH B LACK STOOLS, ANEMIA, ? AIN / VASCULITIS WITH RASH Says feel weak BUT better, c/o itchy skin responding some to BENADRYL AND STEROID CEREAM HE STATED Denies cp, sob, nausea, vomiting, diarrhea, fever, headache, rash, cough, dizziness, epista xis now HERE HAPPILY FOR 22 YEARS, LIVES in [place] AT HOME WITH , Past Medical History Diagnosis Date Hyperlipidemia Hypertension Diabetes mellitus type II Asthma Thyroid disease Anemia Past Surgical History Procedure Date Unlisted procedure arthroscopy History Social History Marital Status: Spouse Name: [...] WITH [employer]; KIDSUNEMPLOYED BEFORE WORKED AT [employer] IN [place] NONE ETOH QUIT 15 YEARS AGODRUGS: USES METHAMPHETAMINES PER PATIENTF ATHER HAS COLON CANCER, HEART DISEASEMOTHER 15 YEARS AGONO FH KIDNEY PROBLEMS. History reviewed. No pertinent family history. Scheduled Medications acyclovir 5 mg/kg ([facility]) Intravenous Q24H amlodipine 10 mg Oral Daily calcitRIOL 0.25 mcg Oral Daily calcium acetate 1,334 mg Oral TID WC calcium carbonate 1,000 mg Oral Q8H carbamazepine 200 mg Oral TID ergocalciferol 50,000 Units Oral Weekly famotidine 20 mg Oral Daily Or famotidine 20 mg Intravenous Daily insulin aspart 0-10 Units Subcutaneous TID AC insulin aspart 0-5 Units Subcutaneous Nightly levothyroxine 25 mcg Oral QAM AC methylPREDNISolone 500 mg Intravenous Daily metoprolol 25 mg Oral BID DISCONTD: levothyroxine 25 mcg Oral QAM AC Continuous Infusions dextrose custom IV infusion builder 30 mL/hr at 04/07/12 1601 PRN Medications acetaminophen, acetaminophen, albuterol, dextrose, dextrose, dextrose, diphenhydrAMINE, glu cagon, glucagon, hydrALAZINE, hydrOXYzine, insulin aspart, mineral oil-hydrophilic petrolatu m, ondansetron, ondansetron, polyethylene glycol Allergy: Allergies Allergen Reactions Penicillins Other (See Comments) unknown OBJECTIVE Vital Signs: BP 168/79 | Pulse 81 | Temp(Src) 97.5 F (36.4 C) (Oral) | Resp 20 | Ht 1.702 m (5' 7") | Wt 98.5 kg (217 lb 2.5 oz) | BMI 34.01 kg/m2 | SpO2 96% I&O Detailed Table: I/O last 3 completed shifts: In: 3486 [P.O.:1600; I.V.:1886] Out: 1850 [Urine:1850; Stool:1] Weight change: -2.2 kg (-4 lb 13.6 oz) Hemodynamics Last 24hrs: Examination: Constitutional: Alert [...] no guarding. Musculoskeletal: No gross deformity, EXT: 1 plus pedal edema and pulses are palpable. Neurological: No gross focal motor neurologic deficits. Skin: Skin is warm and dry. GENERALIZED MACULOPAPULAR AND PUSTULAR RASH, ITCHING Psychiatric: AXOX3, mood and affect ok, memory seems to be intact. LABS: CBC: Lab Results Component Value Date WBC 10.2 04/07/2012 RBC 2.71* 04/07/2012 HGB 8.2* 04/07/2012 HCT 24.6* 04/07/2012 PLT 242 04/07/2012 DIFFTYPE AUTOMATED 04/07/2012 CMP: No components found with this basename: cmp Lab Results Component Value Date NA 130* 04/08/2012 K 4.3 04/08/2012 CL 90* 04/08/2012 CO2 27 04/08/2012 ANIONGAP 18 04/08/2012 GLUF 182* 04/08/2012 BUN 91* 04/08/2012 CREATININE 9.28* 04/08/2012 BCR 10 04/08/2012 CA 6.4* 04/08/2012 CA 6.1* 04/02/2012 PROT 5.7* 04/08/2012 ALB 1.8* 04/08/2012 GLOB 3.9 04/08/2012 BILITOT 0.3 04/08/2012 ALP 74 04/08/2012 AST 34 04/08/2012 ALT 21 04/08/2012 EGFR 6* 04/08/2012 Magnesium: Lab Results Component Value Date MG 1.7 04/07/2012 Phosphorus: Lab Results Component Value Date PHOS 4.2 04/07/2012 IRON: Lab Results Component Value Date IRON 55 04/02/2012 Lab Results Component Value Date FERRITIN 139 04/02/2012 LABIRON 38 04/02/2012 IMAGING Xr Chest 2 View 04/02/2012 CAROL POTTER 1965 47 years Male XR CHEST 2 VIEW FRONTAL AND LATERAL 2 1:00 PM INDICATION: Shortness of breath COMPARISON: None. TECHNIQUE: Two view chest, PA and lateral views FINDINGS: Mild cardiomegaly is demonstrated. There is no mediastinal wi dening or shift. There is no pneumothorax or effusion. Scattered fine reticular markings a re seen along the periphery of the lungs bilaterally in the lower lobes. The pulmonary vasc ulature is normal in caliber. There are no pulmonary nodules. Moderate acromioclavicular o steoarthritis is present. There is mild degenerative disk disease of the thoracic spine. I MPRESSION: 1. Scattered reticular markings in the lower lungs bilaterally which may reflect interstitial changes versus mild edema. Electronically signed by Braden Paige MD on 1 1:[address] Chest Without Contrast 04/07/[address] WITHOUT IV CONTRAST 04/06/2012 HISTORY: Cough. COMPARISON: Chest rad iograph on 04/02/2012. TECHNIQUE: Helical axial scans of the chest without IV contrast. Cor onal reformatted images. FINDINGS: Small pleural effusion bilaterally. Small to moderate pe ricardial effusion, measuring about 13 mm in width. Minimal lower lung atelectasis. No pulmo nary consolidation or mass. No pneumothorax. Trachea and major bronchi appear normal. Mild e nlargement of aortopulmonary window and subcarinal nodes, up to 12 mm in short dimension. Mi nimal atherosclerosis of left anterior descending coronary artery. Upper abdomen demonstrate s no mass or adenopathy. Very small amount of ascites adjacent to the liver. Degenerative ch anges of the spine. Old right clavicle fracture. No acute skeletal abnormality. Diffuse subc utaneous edema. IMPRESSION: 1. Small bilateral pleural effusion. 2. Small to moderate peric ardial effusion. 3. Mild bilateral lower lung atelectasis. 4. Mild enlargement of aortopulmo nary window and subcarinal nodes. 5. Minimal atherosclerosis of left anterior descending cor onary artery. 6. Very small amount of ascites adjacent to the liver. 7. Diffuse subcutaneous edema. Electronically signed by Favio Hughes MD on Apr 07 2012 8:45AM Ultrasound Retroperitoneal Limited 04/02/2012 HISTORY: Acute renal failure. COMPARISON: None. TECHNIQUE: 4-MHz curvilinear sonographic barrientos scale, color flow evaluation of the kidneys and urinary bladder. FINDINGS: Right kidney measures 9.5 by 5.3 x 4 .9 cm, and the left kidney measures 10.6 by 5.0 by 5.9 cm. Both kidneys appear unremarkable. No hydronephrosis. Urinary bladder is empty, with a Newman catheter in place. Ureteral jets are not seen. IMPRESSION: 1. Unremarkable appear ance of the kidneys. 2. Empty urinary bladder with a Newman catheter in place. Electronical ly signed by Wilton Lentz MD on 04/02/2012 11:58 AM PROBLEM LIST Principal Problem: *Renal failure, acute Active Problems: Rhabdomyolysis Type II or unspecified type diabetes mellitus without mention of complication, not stated as uncontrolled Essential hypertension, benign Amphetamine and other psychostimulant dependence, continuous Hyperphosphatemia Anemia Acidosis Rash and nonspecific skin eruption Vitamin d deficiency Secondary hyperparathyroidism (of renal origin) Hypocalcemia Hypothyroidism Eczema herpeticum ASSESSMENT & PLAN ARF UNRESOLVED SEVERE LIKELY SECONDARY TO Renal hypoperfusion/ NAPROXEN 4 TAB DAILY FOR OVER A WEEK/ HEMODYNAMIC EFEFCT OF LISINOPRIL/ DIARRHEA WITH BLACK STOOLS/ ANEMIA/ rhabdomyolysis ( cpk not too high) / use of methamphetamine EOSINOPHILIA (WAS on naproxen) URINE EOSINOPHILS NEGATIVE RULED OUT HYDRONEPHROSIS PER US RENAL REVIEWED R.O ANCA VASCULITIS / ANTI GBM GIVEN EPISTAXIS VS ? HEMOPTYSIS THIS AM WITH ARF W/U VITAMIN D,25 HYDROXY <12 Hold lisinopril Stopped naproxen Stopped metformin given risk of lactic acidosis with cr above 1.5 in men Urine studies reviewed C3, C4 levels wnl, hep b/c NR, RF NEG, KAPPA/LAMBDA RATIO WNL, HIV NR RASHID/LAMBDA RATIO 1.89 ANCA, ANTI GBM PENDING Strict I & O, Daily weights Daily RFP Renal diet AVOID NSAIDS/ ADAM-2 INHIBITORS AVOID NEPHROTOXIC MEDS INCLUDING AMINOGLYCOSIDES/ IV CONTRAST Assess daily for need for hd Dose all meds for crcl less than 15 mls/min Lab Results Component Value Date CREATININE 9.28* 04/08/2012 CREATININE 9.66* 04/07/2012 CREATININE 10.61* 04/06/2012 EGFR 6* 04/08/2012 EGFR 6* 04/07/2012 EGFR 6* 04/06/2012 D/W DR TELLO TO HAVE SKIN BX RATHER THAN DOING KIDNEY BX SINCE THAT WILL BE LESS RISKY AN D IT SHOULD BE DONE MARIE, SHE TOLD ME THAT SHE WILL CONTACT HOSPITALIST DR WHEELER AND GET IT DONE MARIE We could not lexa skin bx in timely fashion so will get renal bx tomorrow Pt on HIGH DOSES OF STEROIDS , will now switch from tomorrow To oral prednisone D/W PT AND RELATIVE ABOUT THE NEED FOR RENAL BX EXPLAINED THE RISK AND BENEFIT AND HE AGREE D RADIOLOGIST WILL EXPLAINED RISKS of PROCEDURE FURTHER MAY REQUIRE HD, will watch till Bx done HYPERKALEMIA RESOLVED Likely secondary to ARF/ SEVERE ACIDOSIS contributing HYPOKALEMIA NEW REPLACE TO KEEP k GREATER THAN 3.8 REPEAT k LEVEL IN AM ACIDOSIS IMPROVING STOP NAHCO3 DRIP DUE TO VOLUME OVER LOAD LASIX 20 mg IV x 1 now SALINE LOCK ANEMIA STABLE GOT PRBCS LIKELY DUE TO GI BLEED GI Dr [place] saw patient NL IRON SAT BUT CHECKED POST TRANSFUSION ORAL FESO4 325 mg TID HYPOCALCEMIA SEVERE NEW GIVE CA GLUCONATE 2 GMS IVPB X 1 STARTED ON VIT D AND CALCITRIOL DAILY START TUMS 2 TAB TID VIT D DEF, LEVEL <12 ADDING VIT D 50,000 units Q WEEKLY PO x 4 weeks then 2000 units daily HTN UNCONTROLLED NEW WATCH BP CLOSELY FOR NOW START AMLODIPINE DAILY NARCOTIC ABUSER INCLUDING METH, RECENTLY QUIT HYPERPHOSPHATEMIA LIKELY SECONDARY TO ARF LOW P DIET INCREASE PHOSLO 2 TAB TID WITH MEALS VIT D DEF: CONTINUE VIT D SECONDARY HYPERPARATHYROIDISM CONTINUE CALCITRIOL TIW PTH 255 CASE DISCUSSED IN DETAIL WITH PATIENT/ FAMILY/ HOSPITALIST, ANSWERS ALL QUESTIONS IN DETAIL , VERBALIZES UNDERSTANDING CASE VERY COMPLICATED D/W RADIOLOGY DEPT TO MAKE SURE PT IS ON LIST FOR RENAL BX Time spend over 35 minutes of time spent evaluating the patient, reviewing the data, formul ating a plan and discussion with patient and hospitalist team, more than half of the time sp ent in counseling and coordination of care. SEAN SOLORZANO MD 04/08/2012 Milton Adamson MD - 04/08/2012 1:31 PM PDTFormatting of this note might be different from the or iginal. Progress Notes by Kisha Tello MD at 04/08/12 1331 Author: Kisha Tello MD Service: (none) Author Type: Physician Filed: 04/08/12 1701 Date of Service: 04/08/121 Status: Signed Economic Development Coordinator: Kisha Tello MD (Physician) [facility] Service: Infectious Disease Progress Note Hospital Day: LOS: 6 days Post-Op Day: * No surgery found * SUBJECTIVE Patient Summary: 38-year-old male presents with rash, renal failure, rhabdomyolysis, epistaxis, without fevers. There was initial concern for hemoptysis although this consisted of throat clearing during an episode of epistaxis, with no respiratory symptoms and normal c hest x-ray. Airborne isolation was discontinued. He has not received any antibiotics. ID jose miguel pierce was requested of her concern about his skin rashes and possible underlying infection. T esting for HIV, syphilis and blood cultures all negative. Whole blood tuberculosis screen is pending. Events overnight- Patient has been continued on high-dose B12 prednisone and acyclovir. Skin biopsy still not completed. Patient sleepy and lying in bed and not cooperative for exam. He has extensive scratching and some of the lesions on the skin are bleeding. . Scheduled Medications acyclovir 5 mg/kg ([facility]) Intravenous Q24H amlodipine 10 mg Oral Daily calcitRIOL 0.25 mcg Oral Daily calcium acetate 1,334 mg Oral TID WC calcium carbonate 1,000 mg Oral Q8H carbamazepine 200 mg Oral TID ergocalciferol 50,000 Units Oral Weekly famotidine 20 mg Oral Daily Or famotidine 20 mg Intravenous Daily insulin aspart 0-10 Units Subcutaneous TID AC insulin aspart 0-5 Units Subcutaneous Nightly levothyroxine 25 mcg Oral QAM AC methylPREDNISolone 500 mg Intravenous Daily metoprolol 25 mg Oral BID DISCONTD: levothyroxine 25 mcg Oral QAM AC Continuous Infusions dextrose custom IV infusion builder 30 mL/hr at 04/07/12 1601 PRN Medications acetaminophen, acetaminophen, albuterol, dextrose, dextrose, dextrose, diphenhydrAMINE, glu cagon, glucagon, hydrALAZINE, hydrOXYzine, insulin aspart, mineral oil-hydrophilic petrolatu m, ondansetron, ondansetron, polyethylene glycol OBJECTIVE Vital Signs: BP 168/79 | Pulse 81 | Temp(Src) 97.5 F (36.4 C) (Oral) | Resp 20 | Ht 1.702 m (5' 7") | Wt 98.5 kg (217 lb 2.5 oz) | BMI 34.01 kg/m2 | SpO2 96% Temp (24hrs), Av.3 F (36.8 C), Min:97.5 F (36.4 C), Max:98.7 F (37.1 C) Physical Exam Exam: Const: Vitals reviewed. No acute distress; Skin: Patient has eczematous areas over his lower extremities also on his external auricle s and over his hands. In addition to this eczematous rash there is also a discrete herpetiform rash that can be s een on his upper chest and upper extremities. The eczematous areas now appeared dry and crusted ,There is some bleeding seen on a few of these rashes due to extensive scratching ENT: No thrush. Lungs: CTAB, no rales or wheezes Heart: RRR, no murmur Abd: soft, NT, + bowel sounds DATA CBC: Lab Results Component Value Date WBC 10.2 04/07/2012 RBC 2.71* 04/07/2012 HGB 8.2* 04/07/2012 HCT 24.6* 04/07/2012 MCV 90.8 04/07/2012 MCH 30.3 04/07/2012 MCHC 33.4 04/07/2012 RDW 51.6 04/07/2012 PLT 242 04/07/2012 MPV 6.7 04/07/2012 DIFFTYPE AUTOMATED 04/07/2012 CMP: Lab Results Component Value Date NA 130* 04/08/2012 K 4.3 04/08/2012 CL 90* 04/08/2012 CO2 27 04/08/2012 ANIONGAP 18 04/08/2012 GLUF 182* 04/08/2012 BUN 91* 04/08/2012 CREATININE 9.28* 04/08/2012 BCR 10 04/08/2012 CA 6.4* 04/08/2012 CA 6.1* 04/02/2012 PROT 5.7* 04/08/2012 ALB 1.8* 04/08/2012 GLOB 3.9 04/08/2012 BILITOT 0.3 04/08/2012 ALP 74 04/08/2012 AST 34 04/08/2012 ALT 21 04/08/2012 EGFR 6* 04/08/2012 URINE, COLLECTION NOT GIVEN CULTURE >100,000 CFU/ML STAPHYLOCOCCUS AUREUS SUSCEPTIBILITY TO FOLLOW PROBLEM LIST Principal Problem: *Renal failure, acute Active Problems: Rhabdomyolysis Type II or unspecified type diabetes mellitus without mention of complication, not stated as uncontrolled Essential hypertension, benign Amphetamine and other psychostimulant dependence, continuous Hyperphosphatemia Anemia Acidosis Rash and nonspecific skin eruption Vitamin d deficiency Secondary hyperparathyroidism (of renal origin) Hypocalcemia Hypothyroidism Eczema herpeticum ASSESSMENT & PLAN Patient Active Hospital Problem List: Renal failure, acute (04/02/2012) Creatinine slowly coming down. Plan for kidney biopsy. Bacteriuria Initial urine cultures were negative. Subsequent urine culture after catheterization shows greater than 100,000 colonies of Staph ylococcus-yet to be identified I suggest repeating the urine microscopy And culture. Would not treat this unless clinically indicated or recurrent significant bacteriuria Rash and nonspecific skin eruption (04/03/2012) There is a large component of eczema associated with a herpetiform rash. Continue IV acyclovir for possibility of eczema herpeticum. This is often treated with concomitant treatment for eczema. Steroids hence should be okay. This diagnosis is clinical and presumptive. Skin biopsy will be indicated For definitive diagnosis. HSV serology awaited Code Status: Full Code Kisha Tello MD 04/08/2012 Jeanne malone, Favio Willoughby MD - 04/08/2012 8:47 AM PDT Progress Notes by Favio Dawkins MD at 04/08/12 0862 Author: Favio Dawkins MD Service: Hospitalist Author Type: Physician Filed: 04/08/12 3650 Date of Service: 04/08/12846 Status: Signed Economic Development Coordinator: Favio Dawkins MD (Physician) [facility] Service: Hospitalist Progress Note Hospital Day: LOS: 6 days Patient Summary: who presented by ambulance from [facility] Was there at 04/01 at 2100 due to chest pain. He was given NTG there which relieved his pain. He was found have a creatinine of 14.2 and was hyperkalemic with a K of 7.3. He was given Ca Gluconate, Insulin, D50, albuterol, kayexalate, Bicarb . No fluids given. He also has been using methamphetamine on that day which he says he only recently started. The pt does complain of an "itchy rash." The pt's rash has been present f or the past "4-5 days. And is all over his body. He denies any current chest pain. ER physic tatum has contacted Dr. Timmons who recommends bicarb drip and ER has already started RBC transfu quique. He reports resolution of chest pain. He does not have any PCP care prior to this and i s basically noncompliant with his medications. Denies nausea, vomiting, SOB, headacge. C/o p enile pain post catheterization. SUBJECTIVE Patient is seen and examined at bedside on follow up. Overnight Vital Signs have been stabl e and patient states that they subjectively feel about the same with complaints of Patient reports rash still itchy, no chest pain, SOB, nausea or vomiting. Feels that what he gets fr om his diabetic diet is not enough Events Overnight: none Scheduled Medications acyclovir 5 mg/kg ([facility]) Intravenous Q24H amlodipine 10 mg Oral Daily calcitRIOL 0.25 mcg Oral Daily calcium acetate 1,334 mg Oral TID WC calcium carbonate 1,000 mg Oral Q8H carbamazepine 200 mg Oral TID ergocalciferol 50,000 Units Oral Weekly famotidine 20 mg Oral Daily Or famotidine 20 mg Intravenous Daily insulin aspart 0-10 Units Subcutaneous TID AC insulin aspart 0-5 Units Subcutaneous Nightly levothyroxine 25 mcg Oral QAM AC methylPREDNISolone 500 mg Intravenous Daily metoprolol 25 mg Oral BID DISCONTD: levothyroxine 25 mcg Oral QAM AC Continuous Infusions dextrose custom IV infusion builder 30 mL/hr at 04/07/12 1601 PRN Medications acetaminophen, acetaminophen, albuterol, dextrose, dextrose, dextrose, diphenhydrAMINE, glu cagon, glucagon, hydrALAZINE, hydrOXYzine, insulin aspart, mineral oil-hydrophilic petrolatu m, ondansetron, ondansetron, polyethylene glycol OBJECTIVE Vital Signs: BP 183/84 | Pulse 90 | Temp(Src) 98.2 F (36.8 C) (Oral) | Resp 18 | Ht 1.702 m (5' 7") | Wt 98.5 kg (217 lb 2.5 oz) | BMI 34.01 kg/m2 | SpO2 99% Intake/Output Summary (Last 24 hours) at 04/08/12 0847 Last data filed at 04/08/12 0450 Gross per 24 hour Intake 2502 ml Output 800 ml Net 1702 ml General: Alert and oriented x 3 Cardiovascular: Regular rate and rhythm, no murmurs, no thrills. Respiratory: Clear to auscultation, no wheezing or crackles, breathing non labored. Gastrointestinal: Soft, non-tender, distended, positive bowel sounds Musculoskeletal: no joint erythema or edema. Upper extremities no clubbing, cyanosis, eryt rosetta or edema. Lower extremities no clubbing, cyanosis erythema or edema. Skin: Warm and dry, papular rash all overn no erythema or warmth, and with warty excrecense s on fingers, . Neurological: cranial nerves II-Xll, and sensation grossly normal. Psychiatric: Normal mood/affect, Normal behavior DATA Lab 04/03/12 0505 TSH 16.60* T3FREE -- FREET4 0.6* CBC: Lab Results Component Value Date WBC 10.2 04/07/2012 RBC 2.71* 04/07/2012 HGB 8.2* 04/07/2012 HCT 24.6* 04/07/2012 MCV 90.8 04/07/2012 MCH 30.3 04/07/2012 MCHC 33.4 04/07/2012 RDW 51.6 04/07/2012 PLT 242 04/07/2012 MPV 6.7 04/07/2012 DIFFTYPE AUTOMATED 04/07/2012 CMP: Lab Results Component Value Date NA 130* 04/08/2012 K 4.3 04/08/2012 CL 90* 04/08/2012 CO2 27 04/08/2012 ANIONGAP 18 04/08/2012 GLUF 182* 04/08/2012 BUN 91* 04/08/2012 CREATININE 9.28* 04/08/2012 BCR 10 04/08/2012 CA 6.4* 04/08/2012 CA 6.1* 04/02/2012 PROT 5.7* 04/08/2012 ALB 1.8* 04/08/2012 GLOB 3.9 04/08/2012 BILITOT 0.3 04/08/2012 ALP 74 04/08/2012 AST 34 04/08/2012 ALT 21 04/08/2012 EGFR 6* 04/08/2012 Albumin: Lab Results Component Value Date ALB 1.8* 04/08/2012 Calcium: No results found for this basename: CALCIUM Ionized Calcium: Lab Results Component Value Date CAITLYN 0.73* 04/07/2012 PH 7.536* 04/07/2012 Magnesium: Lab Results Component Value Date MG 1.7 04/07/2012 Phosphorus: Lab Results Component Value Date PHOS 4.2 04/07/2012 IMAGING Xr Chest 2 View 04/02/2012 CAROL POTTER 1965 47 years Male XR CHEST 2 VIEW FRONTAL AND LATERAL 2 1:00 PM INDICATION: Shortness of breath COMPARISON: None. TECHNIQUE: Two view chest, PA and lateral views FINDINGS: Mild cardiomegaly is demonstrated. There is no mediastinal wi dening or shift. There is no pneumothorax or effusion. Scattered fine reticular markings a re seen along the periphery of the lungs bilaterally in the lower lobes. The pulmonary vasc ulature is normal in caliber. There are no pulmonary nodules. Moderate acromioclavicular o steoarthritis is present. There is mild degenerative disk disease of the thoracic spine. I MPRESSION: 1. Scattered reticular markings in the lower lungs bilaterally which may reflect interstitial changes versus mild edema. Electronically signed by Braden Paige MD on 1 1:[address] Chest Without Contrast 04/07/[address] WITHOUT IV CONTRAST 04/06/2012 HISTORY: Cough. COMPARISON: Chest rad iograph on 04/02/2012. TECHNIQUE: Helical axial scans of the chest without IV contrast. Cor onal reformatted images. FINDINGS: Small pleural effusion bilaterally. Small to moderate pe ricardial effusion, measuring about 13 mm in width. Minimal lower lung atelectasis. No pulmo nary consolidation or mass. No pneumothorax. Trachea and major bronchi appear normal. Mild e nlargement of aortopulmonary window and subcarinal nodes, up to 12 mm in short dimension. Mi nimal atherosclerosis of left anterior descending coronary artery. Upper abdomen demonstrate s no mass or adenopathy. Very small amount of ascites adjacent to the liver. Degenerative ch anges of the spine. Old right clavicle fracture. No acute skeletal abnormality. Diffuse subc utaneous edema. IMPRESSION: 1. Small bilateral pleural effusion. 2. Small to moderate peric ardial effusion. 3. Mild bilateral lower lung atelectasis. 4. Mild enlargement of aortopulmo nary window and subcarinal nodes. 5. Minimal atherosclerosis of left anterior descending cor onary artery. 6. Very small amount of ascites adjacent to the liver. 7. Diffuse subcutaneous edema. Electronically signed by Favio Hughes MD on Apr 07 2012 8:45AM Ultrasound Retroperitoneal Limited 04/02/2012 HISTORY: Acute renal failure. COMPARISON: None. TECHNIQUE: 4-MHz curvilinear sonographic barrientos scale, color flow evaluation of the kidneys and urinary bladder. FINDINGS: Right kidney measures 9.5 by 5.3 x 4 .9 cm, and the left kidney measures 10.6 by 5.0 by 5.9 cm. Both kidneys appear unremarkable. No hydronephrosis. Urinary bladder is empty, with a Newman catheter in place. Ureteral jets are not seen. IMPRESSION: 1. Unremarkable appear ance of the kidneys. 2. Empty urinary bladder with a Newman catheter in place. Electronical ly signed by Wilton Lentz MD on 04/02/2012 11:58 AM PROBLEM LIST Principal Problem: *Renal failure, acute Active Problems: Rhabdomyolysis Type II or unspecified type diabetes mellitus without mention of complication, not stated as uncontrolled Essential hypertension, benign Amphetamine and other psychostimulant dependence, continuous Hyperphosphatemia Anemia Acidosis Rash and nonspecific skin eruption Vitamin d deficiency Secondary hyperparathyroidism (of renal origin) Hypocalcemia Hypothyroidism Eczema herpeticum PLAN Principal Problem: *Renal failure, acute - Most likely secondary to hypoperfusion, NSAIDs, ACEI, and diarrhea . Dr Solorzano following, closely monitoring for possible hemodialysis if no improvement. Avoid nephrotoxins. Oliguric. Slightly improving on solumedrol as per Nephrology reccomendations. Active Problems: Rhabdomyolysis Type II or unspecified type diabetes mellitus without mention of complication, not stated as uncontrolled - Continue insulin coverage continue diabetic diet Essential hypertension, benign - Uncontrol on current regimen most likely secondary to Saulo al failure. Nephrology following, Will increase Lopressor to 50 BID Amphetamine and other psychostimulant dependence, continuous now off them, advised to stop Hyperphosphatemia improved Anemia stable Acidosis improving Rash and nonspecific skin eruption I did talk with Dr. Meza who is aware of request for skin biopsy and will be seeing patient Vitamin d deficiency/Secondary hyperparathyroidism (of renal origin) continue weekly ergoc alciferol and 1000 mg calcium orally for Hypocalcemia continue to monitor electrolytes yelena y. Hypothyroidism continue with lowest dose Levothroid Eczema herpeticum On acyclovir and skin biopsy pending. I explained radiology and lab findings and plan of care to patient and relative and they ve rbalized understanding and agreement and had no more questions for me after my interaction w ith them. More than 35 minutes spent directly face to face with patient for physical examina tion and talking with him and relative at bedside, chart review, coordinating care with othe r providers, formulating a plan of care and management as well as Computerized Physician Ord er Entry. Code Status: Full Code Favio Dawkins MD 04/08/20128:47 AM Maurice Willis - 04/07/2012 2:52 PM PDT Progress Notes by Sean Solorzano MD at 04/07/121451 Author: Sean Solorzano MD Service: Nephrology Author Type: Physician Filed: 04/07/12 172 Date of Service: 04/07/121451 Status: Signed Economic Development Coordinator: Sean Solorzano MD (Physician) [facility] Service: NEPHROLOGY Progress Note Carol Potter 47 y.o. [id number] male Ashly Quick MD, MD Hospital Day: LOS: 5 days SUBJECTIVE Patient seen and examined. [place] [place] ADMITTED WITH Renal failure, acute ASSOCIATED WITH FLUID ELECTROLYTE ACID BASE ABNORMALITIES HISTORY OF PRESENT ILLNESS The patient is a 47 y.o. male with significant past medical history of DYSLIPIDEMIA, HYPERTENSION, DM II, ASTHMA, ANEMIA, GOUT, who presented by ambulance from [facility]. Was there at 04/01 at 2100 due to chest pain. He was given NTG there which relieved his pain. He was found have a creatinine of 14.2 and w as hyperkalemic with a K of 7.3. He was given Ca Gluconate, Insulin, D50, albuterol, kayexal ate, Bicarbonate. He also has been using methamphetamine on that day which he says he only r ecently started. The pt does complain of an "itchy rash." The pt's rash has been present for the past 4-5 days and is all over his body. Patient started on bicarb drip and ER has already started PRBC transfusion. He reports reso lution of chest pain. He does not have any PCP care prior to this and is basically noncompli ant with his medications. Denies nausea, vomiting, SOB, headacge. C/o penile pain post newman catheterization. BLACK STOOLS FOR LAST 3-4 DAYS, C/O NOSE BLEED FOR LAST FEW DAYS, NOW STOPPED +VE RASH ITCHY ALL OVER BODY FOR ABOUT A WEEK Nephrology consulted for evaluation and management of ARF (last known cr in 2010 was1.7 per records) Lab Results Component Value Date BUN 104* 04/04/2012 BUN 106* 04/03/2012 BUN 122* 04/02/2012 BUN 114* 04/02/2012 CREATININE 11.98* 04/04/2012 CREATININE 13.34* 04/03/2012 CREATININE 14.39* 04/02/2012 CREATININE 15.12* 04/02/2012 ONSET ACUTE ,severity SEVERE Associated with fluid electrolyte acid base imbalances SEVERE HYPERKALEMIA/ ANEMIA/ ACIDOSI S/ HYPONATREMIA/ HYPERPHOSPHATEMIA RF; NAPROXEN 4 TAB DAILY FOR OVER A WEEK, HEMODYNAMIC EFEFCT OF LISINOPRIL, DIARRHEA WITH B LACK STOOLS, ANEMIA, ? AIN / VASCULITIS WITH RASH Says feel weak BUT better, c/o itchy skin responding some to BENADRYL AND STEROID CEREAM HE STATED Denies cp, sob, nausea, vomiting, diarrhea, fever, headache, rash, cough, dizziness, epista xis now HERE HAPPILY FOR 22 YEARS, LIVES in [place] AT HOME WITH , Past Medical History Diagnosis Date Hyperlipidemia Hypertension Diabetes mellitus type II Asthma Thyroid disease Anemia Past Surgical History Procedure Date Unlisted procedure arthroscopy History Social History Marital Status: Spouse Name: [...] WITH [employer]; KIDSUNEMPLOYED BEFORE WORKED AT [employer] IN [place]/ [employer] COURSESMOKE NONE ETOH QUIT 15 YEARS AGODRUGS: USES METHAMPHETAMINES PER PATIENTF ATHER HAS COLON CANCER, HEART DISEASEMOTHER 15 YEARS AGONO FH KIDNEY PROBLEMS. History reviewed. No pertinent family history. Scheduled Medications acyclovir 5 mg/kg ([facility]) Intravenous Q24H amlodipine 10 mg Oral Daily calcitRIOL 0.25 mcg Oral Daily calcium acetate 1,334 mg Oral TID WC calcium carbonate 1,000 mg Oral Q8H carbamazepine 200 mg Oral TID ergocalciferol 50,000 Units Oral Weekly famotidine 20 mg Oral Daily Or famotidine 20 mg Intravenous Daily insulin aspart 0-10 Units Subcutaneous TID AC insulin aspart 0-5 Units Subcutaneous Nightly levothyroxine 25 mcg Oral QAM AC levothyroxine 25 mcg Oral QAM AC methylPREDNISolone 500 mg Intravenous Daily metoprolol 25 mg Oral BID DISCONTD: hydrocortisone Topical 4x Daily Continuous Infusions dextrose custom IV infusion builder 70 mL/hr at 04/07/12 1431 PRN Medications acetaminophen, acetaminophen, albuterol, dextrose, dextrose, dextrose, diphenhydrAMINE, glu cagon, glucagon, hydrALAZINE, hydrOXYzine, insulin aspart, mineral oil-hydrophilic petrolatu m, ondansetron, ondansetron, polyethylene glycol Allergy: Allergies Allergen Reactions Penicillins Other (See Comments) unknown OBJECTIVE Vital Signs: BP 154/85 | Pulse 97 | Temp(Src) 97.6 F (36.4 C) (Axillary) | Resp 16 | Ht 1.702 m (5' 7") | Wt 100.7 kg (222 lb 0.1 oz) | BMI 34.77 kg/m2 | SpO2 100% I&O Detailed Table: I/O last 3 completed shifts: In: 5004 [P.O.:1500; I.V.:3504] Out: 3251 [Urine:3250; Stool:1] Weight change: Hemodynamics Last 24hrs: Examination: Constitutional: [...] no guarding. Musculoskeletal: No gross deformity, EXT: 1 plus pedal edema and pulses are palpable. Neurological: No gross focal motor neurologic deficits. Skin: Skin is warm and dry. GENERALIZED MACULOPAPULAR AND PUSTULAR RASH, ITCHING Psychiatric: AXOX3, mood and affect ok, memory seems to be intact. LABS: CBC: Lab Results Component Value Date WBC 10.2 04/07/2012 RBC 2.71* 04/07/2012 HGB 8.2* 04/07/2012 HCT 24.6* 04/07/2012 PLT 242 04/07/2012 DIFFTYPE AUTOMATED 04/07/2012 CMP: No components found with this basename: cmp Lab Results Component Value Date NA 130* 04/07/2012 K 4.2 04/07/2012 CL 90* 04/07/2012 CO2 26 04/07/2012 ANIONGAP 19 04/07/2012 GLUF 276* 04/07/2012 BUN 88* 04/07/2012 CREATININE 9.66* 04/07/2012 BCR 9 04/07/2012 CA 6.2* 04/07/2012 CA 6.1* 04/02/2012 PROT 5.3* 04/07/2012 ALB 1.7* 04/07/2012 GLOB 3.7 04/07/2012 BILITOT 0.3 04/07/2012 ALP 73 04/07/2012 AST 28 04/07/2012 ALT 21 04/07/2012 EGFR 6* 04/07/2012 BMP: Magnesium: Lab Results Component Value Date MG 1.7 04/07/2012 Phosphorus: Lab Results Component Value Date PHOS 4.2 04/07/2012 IRON: Lab Results Component Value Date IRON 55 04/02/2012 Lab Results Component Value Date FERRITIN 139 04/02/2012 LABIRON 38 04/02/2012 IMAGING Xr Chest 2 View 04/02/2012 CAROL POTTER 1965 47 years Male XR CHEST 2 VIEW FRONTAL AND LATERAL 2 1:00 PM INDICATION: Shortness of breath COMPARISON: None. TECHNIQUE: Two view chest, PA and lateral views FINDINGS: Mild cardiomegaly is demonstrated. There is no mediastinal wi dening or shift. There is no pneumothorax or effusion. Scattered fine reticular markings a re seen along the periphery of the lungs bilaterally in the lower lobes. The pulmonary vasc ulature is normal in caliber. There are no pulmonary nodules. Moderate acromioclavicular o steoarthritis is present. There is mild degenerative disk disease of the thoracic spine. I MPRESSION: 1. Scattered reticular markings in the lower lungs bilaterally which may reflect interstitial changes versus mild edema. Electronically signed by Braden Paige MD on 1 1:[address] Chest Without Contrast 04/07/[address] WITHOUT IV CONTRAST 04/06/2012 HISTORY: Cough. COMPARISON: Chest rad iograph on 04/02/2012. TECHNIQUE: Helical axial scans of the chest without IV contrast. Cor onal reformatted images. FINDINGS: Small pleural effusion bilaterally. Small to moderate pe ricardial effusion, measuring about 13 mm in width. Minimal lower lung atelectasis. No pulmo nary consolidation or mass. No pneumothorax. Trachea and major bronchi appear normal. Mild e nlargement of aortopulmonary window and subcarinal nodes, up to 12 mm in short dimension. Mi nimal atherosclerosis of left anterior descending coronary artery. Upper abdomen demonstrate s no mass or adenopathy. Very small amount of ascites adjacent to the liver. Degenerative ch anges of the spine. Old right clavicle fracture. No acute skeletal abnormality. Diffuse subc utaneous edema. IMPRESSION: 1. Small bilateral pleural effusion. 2. Small to moderate peric ardial effusion. 3. Mild bilateral lower lung atelectasis. 4. Mild enlargement of aortopulmo nary window and subcarinal nodes. 5. Minimal atherosclerosis of left anterior descending cor onary artery. 6. Very small amount of ascites adjacent to the liver. 7. Diffuse subcutaneous edema. Electronically signed by Favio Hughes MD on Apr 07 2012 8:45AM Ultrasound Retroperitoneal Limited 04/02/2012 HISTORY: Acute renal failure. COMPARISON: None. TECHNIQUE: 4-MHz curvilinear sonographic barrientos scale, color flow evaluation of the kidneys and urinary bladder. FINDINGS: Right kidney measures 9.5 by 5.3 x 4 .9 cm, and the left kidney measures 10.6 by 5.0 by 5.9 cm. Both kidneys appear unremarkable. No hydronephrosis. Urinary bladder is empty, with a Newman catheter in place. Ureteral jets are not seen. IMPRESSION: 1. Unremarkable appear ance of the kidneys. 2. Empty urinary bladder with a Newman catheter in place. Electronical ly signed by Wilton Lentz MD on 04/02/2012 11:58 AM PROBLEM LIST Principal Problem: *Renal failure, acute Active Problems: Rhabdomyolysis Type II or unspecified type diabetes mellitus without mention of complication, not stated as uncontrolled Essential hypertension, benign Amphetamine and other psychostimulant dependence, continuous Hyperphosphatemia Anemia Acidosis Rash and nonspecific skin eruption Vitamin d deficiency Secondary hyperparathyroidism (of renal origin) Hypocalcemia Hypothyroidism Eczema herpeticum ASSESSMENT & PLAN ARF UNRESOLVED SEVERE LIKELY SECONDARY TO Renal hypoperfusion/ NAPROXEN 4 TAB DAILY FOR OVER A WEEK/ HEMODYNAMIC EFEFCT OF LISINOPRIL/ DIARRHEA WITH BLACK STOOLS/ ANEMIA/ rhabdomyolysis ( cpk not too high) / use of methamphetamine EOSINOPHILIA (WAS on naproxen) URINE EOSINOPHILS NEGATIVE RULED OUT HYDRONEPHROSIS PER US RENAL REVIEWED R.O ANCA VASCULITIS / ANTI GBM GIVEN EPISTAXIS VS ? HEMOPTYSIS THIS AM WITH ARF W/U PENDING Nahco3 drip Reduced @30 ml/hr Hold lisinopril Stopped naproxen Stopped metformin given risk of lactic acidosis with cr above 1.5 in men Urine studies reviewed C3, C4 levels wnl, hep b/c NR, RF NEG, KAPPA/LAMBDA RATIO WNL, HIV NR ANCA, ANTI GBM PENDING Strict I & O, Daily weights Daily RFP Renal diet AVOID NSAIDS/ ADAM-2 INHIBITORS AVOID NEPHROTOXIC MEDS INCLUDING AMINOGLYCOSIDES/ IV CONTRAST Assess daily for need for hd Dose all meds for crcl less than 15 mls/min Lab Results Component Value Date CREATININE 9.66* 04/07/2012 CREATININE 10.61* 04/06/2012 CREATININE 11.44* 04/05/2012 EGFR 6* 04/07/2012 EGFR 6* 04/06/2012 EGFR 5* 04/05/2012 I D/W DR TELLO TO HAVE SKIN BX RATHER THAN DOING KIDNEY BX SINCE THAT WILL BE LESS RISKY A ND IT SHOULD BE DONE MARIE, SHE TOLD ME THAT SHE WILL CONTACT HOSPITALIST DR WHEELER AND GET IT DONE MARIE Pt on HIGH DOSES OF STEROIDS HYPERKALEMIA RESOLVED Likely secondary to ARF/ SEVERE ACIDOSIS contributing HYPOKALEMIA NEW REPLACE TO KEEP k GREATER THAN 3.8 REPEAT k LEVEL IN AM ACIDOSIS IMPROVING CONTINUE NAHCO3 DRIP 30 ml/hr ANEMIA STABLE GOT PRBCS LIKELY DUE TO GI BLEED GI Dr lake saw patient NL IRON SAT BUT CHECKED POST TRANSFUSION ORAL FESO4 325 mg TID HYPOCALCEMIA SEVERE NEW GIVE CA GLUCONATE 2 GMS IVPB X 1 STARTED ON VIT D AND CALCITRIOL DAILY START TUMS 2 TAB TID HTN UNCONTROLLED NEW WATCH BP CLOSELY FOR NOW START AMLODIPINE DAILY NARCOTIC ABUSER INCLUDING METH, RECENTLY QUIT HYPERPHOSPHATEMIA LIKELY SECONDARY TO ARF LOW P DIET INCREASE PHOSLO 2 TAB TID WITH MEALS VIT D DEF: CONTINUE VIT D SECONDARY HYPERPARATHYROIDISM CONTINUE CALCITRIOL TIW Lab Results Component Value Date PTHINTACT 255* 04/02/2012 CASE DISCUSSED IN DETAIL WITH PATIENT/ FAMILY / HOSPITALIST, ANSWERS ALL QUESTIONS IN D ETAIL, VERBALIZES UNDERSTANDING CASE VERY COMPLICATED Time spend over 35 minutes of time spent evaluating the patient, reviewing the data, formul ating a plan and discussion with patient and hospitalist team, more than half of the time s pent in counseling and coordination of care. SEAN SOLORZANO MD 04/07/2012 Subhash Ryan ace, DO - 04/07/2012 11:41 AM PDTFormatting of this note might be different from the zbigniewa l. Progress Notes by Janene Wheeler DO at 04/07/12 1141 Author: Janene Wheeler DO Service: Hospitalist Author Type: Physician Filed: 04/07/12 1142 Date of Service: 04/07/12 1141 Status: Signed Economic Development Coordinator: Janene Wheeler DO (Physician) [facility] Service: Hospitalist Progress Note Hospital Day: LOS: 5 days Addendum Urine culture positive for S. Aureus, susceptibilities pending. ID following. Janene Ryan DO - 03/24 11:22 AM PDT Progress Notes by Janene Wheeler DO at 04/07/12 1122 Author: Janene Wheeler DO Service: Hospitalist Author Type: Physician Filed: 04/07/12 1140 Date of Service: 04/07/12 1122 Status: Signed Economic Development Coordinator: Janene Wheeler DO (Physician) [facility] Service: Hospitalist Progress Note Hospital Day: LOS: 5 days Patient Summary: who presented by ambulance from [facility]. Was there at 04/01 at 2100 due to chest pain. He was given NTG there which relieved his pain. He was found have a creatinine of 14.2 and was hyperkalemic with a K of 7.3. He was given Ca Gluconate, Insulin, D50, albuterol, kayexalate, Bicarb . No fluids given. He also has been using methamphetamine on that day which he says he only recently started. The pt does complain of an "itchy rash." The pt's rash has been present f or the past "4-5 days. And is all over his body. He denies any current chest pain. ER physic tatum has contacted Dr. Timmons who recommends bicarb drip and ER has already started RBC transfu quique. He reports resolution of chest pain. He does not have any PCP care prior to this and i s basically noncompliant with his medications. Denies nausea, vomiting, SOB, headacge. C/o p enile pain post catheterization. SUBJECTIVE Patient reports no itching, chest pain, SOB, nausea or vomiting. Events Overnight: none Scheduled Medications acyclovir 5 mg/kg ([facility]) Intravenous Q24H amlodipine 10 mg Oral Daily calcitRIOL 0.25 mcg Oral Daily calcium acetate 1,334 mg Oral TID WC calcium carbonate 1,000 mg Oral Q8H calcium gluconate 2 g Intravenous Once carbamazepine 200 mg Oral TID ergocalciferol 50,000 Units Oral Weekly famotidine 20 mg Oral Daily Or famotidine 20 mg Intravenous Daily insulin aspart 0-10 Units Subcutaneous TID AC insulin aspart 0-5 Units Subcutaneous Nightly levothyroxine 25 mcg Oral QAM AC methylPREDNISolone 500 mg Intravenous Daily DISCONTD: hydrocortisone Topical 4x Daily Continuous Infusions dextrose custom IV infusion builder 70 mL/hr at 04/06/12 2106 PRN Medications acetaminophen, acetaminophen, albuterol, dextrose, dextrose, dextrose, diphenhydrAMINE, glu cagon, glucagon, hydrALAZINE, hydrOXYzine, insulin aspart, mineral oil-hydrophilic petrolatu m, ondansetron, ondansetron, polyethylene glycol OBJECTIVE Vital Signs: BP 175/85 | Pulse 98 | Temp(Src) 98.3 F (36.8 C) (Oral) | Resp 16 | Ht 1.702 m (5' 7") | Wt 100.7 kg (222 lb 0.1 oz) | BMI 34.77 kg/m2 | SpO2 98% Intake/Output Summary (Last 24 hours) at 04/07/12 1127 Last data filed at 04/07/12 0548 Gross per 24 hour Intake 3754 ml Output 1701 ml Net 2053 ml General: Alert and oriented x 3 Cardiovascular: Regular rate and rhythm, no murmurs, no thrills. Respiratory: Clear to auscultation, no wheezing or crackles, breathing non labored. Gastrointestinal: Soft, non-tender, non-distended, positive bowel sounds Musculoskeletal: no joint erythema or edema. Upper extremities no clubbing, cyanosis, eryt rosetta or edema. Lower extremities no clubbing, cyanosis erythema or edema. Skin: Warm and dry, no rashes. Neurological: cranial nerves II-Xll, and sensation grossly normal. Psychiatric: Normal mood/affect, Normal behavior DATA Lab 04/03/12 0505 TSH 16.60* T3FREE -- FREET4 0.6* CBC: Lab Results Component Value Date WBC 10.2 04/07/2012 RBC 2.71* 04/07/2012 HGB 8.2* 04/07/2012 HCT 24.6* 04/07/2012 MCV 90.8 04/07/2012 MCH 30.3 04/07/2012 MCHC 33.4 04/07/2012 RDW 51.6 04/07/2012 PLT 242 04/07/2012 MPV 6.7 04/07/2012 DIFFTYPE AUTOMATED 04/07/2012 CMP: Lab Results Component Value Date NA 130* 04/07/2012 K 4.2 04/07/2012 CL 90* 04/07/2012 CO2 26 04/07/2012 ANIONGAP 19 04/07/2012 GLUF 276* 04/07/2012 BUN 88* 04/07/2012 CREATININE 9.66* 04/07/2012 BCR 9 04/07/2012 CA 6.2* 04/07/2012 CA 6.1* 04/02/2012 PROT 5.3* 04/07/2012 ALB 1.7* 04/07/2012 GLOB 3.7 04/07/2012 BILITOT 0.3 04/07/2012 ALP 73 04/07/2012 AST 28 04/07/2012 ALT 21 04/07/2012 EGFR 6* 04/07/2012 Albumin: Lab Results Component Value Date ALB 1.7* 04/07/2012 Calcium: No results found for this basename: CALCIUM Ionized Calcium: Lab Results Component Value Date CAITLYN 0.73* 04/07/2012 PH 7.536* 04/07/2012 Magnesium: Lab Results Component Value Date MG 1.7 04/07/2012 Phosphorus: Lab Results Component Value Date PHOS 4.2 04/07/2012 IMAGING Xr Chest 2 View 04/02/2012 CAROL TARIQ 1965 47 years Male XR CHEST 2 VIEW FRONTAL AND LATERAL 2 1:00 PM INDICATION: Shortness of breath COMPARISON: None. TECHNIQUE: Two view chest, PA and lateral views FINDINGS: Mild cardiomegaly is demonstrated. There is no mediastinal wi dening or shift. There is no pneumothorax or effusion. Scattered fine reticular markings a re seen along the periphery of the lungs bilaterally in the lower lobes. The pulmonary vasc ulature is normal in caliber. There are no pulmonary nodules. Moderate acromioclavicular o steoarthritis is present. There is mild degenerative disk disease of the thoracic spine. I MPRESSION: 1. Scattered reticular markings in the lower lungs bilaterally which may reflect interstitial changes versus mild edema. Electronically signed by Braden Paige MD on 1 1:[address] Chest Without Contrast 04/07/[address] WITHOUT IV CONTRAST 04/06/2012 HISTORY: Cough. COMPARISON: Chest rad iograph on 04/02/2012. TECHNIQUE: Helical axial scans of the chest without IV contrast. Cor onal reformatted images. FINDINGS: Small pleural effusion bilaterally. Small to moderate pe ricardial effusion, measuring about 13 mm in width. Minimal lower lung atelectasis. No pulmo nary consolidation or mass. No pneumothorax. Trachea and major bronchi appear normal. Mild e nlargement of aortopulmonary window and subcarinal nodes, up to 12 mm in short dimension. Mi nimal atherosclerosis of left anterior descending coronary artery. Upper abdomen demonstrate s no mass or adenopathy. Very small amount of ascites adjacent to the liver. Degenerative ch anges of the spine. Old right clavicle fracture. No acute skeletal abnormality. Diffuse subc utaneous edema. IMPRESSION: 1. Small bilateral pleural effusion. 2. Small to moderate peric ardial effusion. 3. Mild bilateral lower lung atelectasis. 4. Mild enlargement of aortopulmo nary window and subcarinal nodes. 5. Minimal atherosclerosis of left anterior descending cor onary artery. 6. Very small amount of ascites adjacent to the liver. 7. Diffuse subcutaneous edema. Electronically signed by Favio Hughes MD on Apr 07 2012 8:45AM Ultrasound Retroperitoneal Limited 04/02/2012 HISTORY: Acute renal failure. COMPARISON: None. TECHNIQUE: 4-MHz curvilinear sonographic barrientos scale, color flow evaluation of the kidneys and urinary bladder. FINDINGS: Right kidney measures 9.5 by 5.3 x 4 .9 cm, and the left kidney measures 10.6 by 5.0 by 5.9 cm. Both kidneys appear unremarkable. No hydronephrosis. Urinary bladder is empty, with a Newman catheter in place. Ureteral jets are not seen. IMPRESSION: 1. Unremarkable appear ance of the kidneys. 2. Empty urinary bladder with a Newman catheter in place. Electronical ly signed by Wilton Lentz MD on 04/02/2012 11:58 AM PROBLEM LIST Principal Problem: *Renal failure, acute Active Problems: Hypothyroidism Rhabdomyolysis Type II or unspecified type diabetes mellitus without mention of complication, not stated as uncontrolled Essential hypertension, benign Amphetamine and other psychostimulant dependence, continuous Hyperphosphatemia Anemia Acidosis Rash and nonspecific skin eruption Vitamin d deficiency Secondary hyperparathyroidism (of renal origin) Hypocalcemia Hypokalemia PLAN Most likely secondary to hypoperfusion, NSAIDs, ACEI, and diarrhea. Dr Timmons following, raudel serrano monitoring for possible hemodialysis if no improvement. Avoid nephrotoxins. Oliguric. Sl ightly improving ?Kidney Biopsy. Place on solumedrol No history of hypothyroidism will start with lowest dose Levothroid Resolving slowly. Continue insulin coverage Uncontrol on current regimen most likely secondary to Renal failure. Nephrology following, Will add Lopressor Advice on cessation Continue calcium acetate Anemia of chronic inflammation, iron studies noted, blood transfusion prn, monitor hemoglob in Resolved Dr Duran consulted for skin biopsy. Possible eczema herpeticum, appreciated Dr Omer watts, Acyclovir IV Ergocalciferol Continue present treatment with calcium and vitamin D replacement. See above. AM labs Code Status: Full Code JANENE WHEELER DO 04/07/201211:27 AM OSuKisha good MD - 04/07/2012 10:24 AM PDT Progress Notes by Kisha Tello MD at 04/07/12 1024 Author: Kisha Tello MD Service: (none) Author Type: Physician Filed: 04/07/12 1420 Date of Service: 04/07/12 1024 Status: Signed Economic Development Coordinator: Kisha Tello MD (Physician) [facility] Service: Infectious Disease Progress Note Hospital Day: LOS: 5 days Post-Op Day: * No surgery found * SUBJECTIVE Patient Summary: 38-year-old male presents with rash, renal failure, rhabdomyolysis, epistaxis, without fevers. There was initial concern for hemoptysis although this consisted of throat clearing during an episode of epistaxis, with no respiratory symptoms and normal c hest x-ray. Airborne isolation was discontinued. He has not received any antibiotics. ID jose miguel pierce was requested of her concern about his skin rashes and possible underlying infection. T esting for HIV, syphilis and blood cultures all negative. Whole blood tuberculosis screen is pending. Events overnight- Patient has been started on high-dose methylprednisolone by nephrology team. Was also started on IV acyclovir for possibility of eczema herpeticum. Patient feels much improved today. Sitting up in chair. Denies any nausea vomiting or diarrhea Still has the rash but feels no pruritus or pain. No fevers or chills . Scheduled Medications acyclovir 5 mg/kg ([facility]) Intravenous Q24H amlodipine 10 mg Oral Daily calcitRIOL 0.25 mcg Oral Daily calcium acetate 1,334 mg Oral TID WC calcium carbonate 1,000 mg Oral Q8H calcium gluconate 2 g Intravenous Once carbamazepine 200 mg Oral TID ergocalciferol 50,000 Units Oral Weekly famotidine 20 mg Oral Daily Or famotidine 20 mg Intravenous Daily insulin aspart 0-10 Units Subcutaneous TID AC insulin aspart 0-5 Units Subcutaneous Nightly levothyroxine 25 mcg Oral QAM AC methylPREDNISolone 500 mg Intravenous Daily DISCONTD: hydrocortisone Topical 4x Daily Continuous Infusions dextrose custom IV infusion builder 70 mL/hr at 04/06/12 2106 PRN Medications acetaminophen, acetaminophen, albuterol, dextrose, dextrose, dextrose, diphenhydrAMINE, glu cagon, glucagon, hydrALAZINE, hydrOXYzine, insulin aspart, mineral oil-hydrophilic petrolatu m, ondansetron, ondansetron, polyethylene glycol OBJECTIVE Vital Signs: BP 175/85 | Pulse 98 | Temp(Src) 98.3 F (36.8 C) (Oral) | Resp 16 | Ht 1.702 m (5' 7") | Wt 100.7 kg (222 lb 0.1 oz) | BMI 34.77 kg/m2 | SpO2 98% Temp (24hrs), Av.2 F (36.8 C), Min:97.5 F (36.4 C), Max:98.8 F (37.1 C) Physical Exam Exam: Const: Vitals reviewed. No acute distress; Somnolent but easily aroused and attentive. Skin: Patient has eczematous areas over his lower extremities also on his external auricle s and over his hands. In addition to this eczematous rash there is also a discrete herpetiform rash that can be s een on his upper chest and upper extremities. The eczematous areas now appeared dry and crusted rather than wet and weepy The herpetiform rash is also dry. ENT: No thrush. Lungs: CTAB, no rales or wheezes Heart: RRR, no murmur Abd: soft, NT, + bowel sounds DATA CBC: Lab Results Component Value Date WBC 10.2 04/07/2012 RBC 2.71* 04/07/2012 HGB 8.2* 04/07/2012 HCT 24.6* 04/07/2012 MCV 90.8 04/07/2012 MCH 30.3 04/07/2012 MCHC 33.4 04/07/2012 RDW 51.6 04/07/2012 PLT 242 04/07/2012 MPV 6.7 04/07/2012 DIFFTYPE AUTOMATED 04/07/2012 CMP: Lab Results Component Value Date NA 130* 04/07/2012 K 4.2 04/07/2012 CL 90* 04/07/2012 CO2 26 04/07/2012 ANIONGAP 19 04/07/2012 GLUF 276* 04/07/2012 BUN 88* 04/07/2012 CREATININE 9.66* 04/07/2012 BCR 9 04/07/2012 CA 6.2* 04/07/2012 CA 6.1* 04/02/2012 PROT 5.3* 04/07/2012 ALB 1.7* 04/07/2012 GLOB 3.7 04/07/2012 BILITOT 0.3 04/07/2012 ALP 73 04/07/2012 AST 28 04/07/2012 ALT 21 04/07/2012 EGFR 6* 04/07/2012 URINE, COLLECTION NOT GIVEN CULTURE >100,000 CFU/ML STAPHYLOCOCCUS AUREUS SUSCEPTIBILITY TO FOLLOW PROBLEM LIST Principal Problem: *Renal failure, acute Active Problems: Rhabdomyolysis Type II or unspecified type diabetes mellitus without mention of complication, not stated as uncontrolled Essential hypertension, benign Amphetamine and other psychostimulant dependence, continuous Hyperphosphatemia Anemia Acidosis Rash and nonspecific skin eruption Vitamin d deficiency Secondary hyperparathyroidism (of renal origin) Hypocalcemia Hypomagnesemia Hypokalemia ASSESSMENT & PLAN Patient Active Hospital Problem List: Renal failure, acute (04/02/2012) Creatinine slowly coming down. Bacteriuria Initial urine cultures were negative. Subsequent urine culture after catheterization shows greater than 100,000 colonies of Staph ylococcus-yet to be identified I suggest repeating the urine microscopy And culture. Would not treat this unless clinically indicated or recurrent significant bacteriuria Rash and nonspecific skin eruption (04/03/2012) There is a large component of eczema associated with a herpetiform rash. Continue IV acyclovir for possibility of eczema herpeticum. This is often treated with concomitant treatment for eczema. Steroids hence should be okay. Code Status: Full Code Kisha Tello MD 04/07/2012 onversio n Transaction, Provider Unknown - 04/06/2012 8:11 PM PDTFormatting of this note might be di fferent from the original. Progress Notes by Olivia Alvarenga RN at 04/06/122010 Author: Olivia Alvarenga RN Service: (none) Author Type: Registered Nurse Filed: 04/06/122011 Date of Service: 04/06/122010 Status: Signed Economic Development Coordinator: Olivia Alvarenga RN (Registered Nurse) SBAR report given to Adam Beverly. All questions stated to be asked and answered. Transfer o f care complete. Edith Wilson MD - 04/06/2012 5:08 PM PDTFormatting of this note might be different from the o riginal. Progress Notes by Edith Díaz MD at 04/06/12 3572 Author: Edith Díaz MD Service: (none) Author Type: Physician Filed: 04/07/12 2342 Date of Service: 04/06/121707 Status: Signed Economic Development Coordinator: Edith Díaz MD (Physician) [facility] Service: Hospitalist Progress Note Hospital Day: LOS: 4 days Post-Op Day: * No surgery found * SUBJECTIVE Patient Summary: who presented by ambulance from [facility]. Was there at 04/01 at 2 100 due to chest pain. He was given NTG there which relieved his pain. He was found have a creatinine of 14.2 and was hyperkalemic with a K of 7.3. He was given Ca Gluconate, Insulin, D50, albuterol, kayexalate, Bicarb . No fluids given. He also has been using methamphetamine on that day which he says he only recently started. The pt does complain of an "itchy rash." The pt's rash has been present f or the past "4-5 days. And is all over his body. He denies any current chest pain. ER physic tatum has contacted Dr. Timmons who recommends bicarb drip and ER has already started RBC transfu quique. He reports resolution of chest pain. He does not have any PCP care prior to this and i s basically noncompliant with his medications. Denies nausea, vomiting, SOB, headacge. C/o p enile pain post catheterization. Events Overnight: No further ventricular tachycardia on the monitor tech. Hemodynamically stable. No further epistaxis. Denies any headache, no fever, no chills, no dizziness or lightheadedness. No oral or mucosal lesions. No neck pain or neck stiffness. Cough is present. No shortness of breath or wheezing. had upper respiratory congestion-like symptoms for the past couple of months and cough is mostly noted in the hospital. The patient denies pleuritic chest pain, hemoptysis, wheezing, no left precordial chest pain, jaw pain, arm pain, or interscapular pain. He denies any abdominal pain, nausea or vomiting, constipation, diarrhea, black stools, melena, or bright red blood per rectum. No edema in the lower extremities. Skin: Diffuse rash, pruritic and painful, weeping lesions noted. Scheduled Medications acyclovir 5 mg/kg ([facility]) Intravenous Q24H amlodipine 10 mg Oral Daily calcitRIOL 0.25 mcg Oral Daily calcium acetate 1,334 mg Oral TID WC calcium carbonate 1,000 mg Oral Q8H calcium gluconate 1 g Intravenous Once calcium gluconate 1 g Intravenous Once calcium gluconate 2 g Intravenous Once carbamazepine 200 mg Oral TID ergocalciferol 50,000 Units Oral Weekly famotidine 20 mg Oral Daily Or famotidine 20 mg Intravenous Daily furosemide 40 mg Intravenous Once insulin aspart 0-10 Units Subcutaneous TID AC insulin aspart 0-5 Units Subcutaneous Nightly levothyroxine 25 mcg Oral QAM AC methylPREDNISolone 500 mg Intravenous Daily potassium chloride 20 mEq Oral Once DISCONTD: hydrocortisone Topical 4x Daily Continuous Infusions dextrose custom IV infusion builder 70 mL/hr at 04/05/12 2345 DISCONTD: custom IV infusion builder 125 mL/hr at 04/05/12 1618 PRN Medications acetaminophen, acetaminophen, albuterol, dextrose, dextrose, dextrose, diphenhydrAMINE, glu cagon, glucagon, hydrALAZINE, insulin aspart, mineral oil-hydrophilic petrolatum, ondansetro n, ondansetron, polyethylene glycol OBJECTIVE Vital Signs: BP 140/76 | Pulse 90 | Temp(Src) 98.2 F (36.8 C) (Oral) | Resp 16 | Ht 1.702 m (5' 7") | Wt 93.8 kg (206 lb 12.7 oz) | BMI 32.39 kg/m2 | SpO2 98% Physical Exam GENERAL: The patient is alert and oriented x3, family at the bedside, tearful, and itchy painful rash, says hydrocortisone cream helped a bit. HEENT: PERRLA, no oral mucosal lesions noted. SKIN:Diffuse rash scattered all over the body including the face with some blue-like lesions of the hands and feet. LUNGS: Clear to auscultation bilaterally. HEART: Regular. ABDOMEN: Soft, nontender, no guarding, no rigidity, bowel sounds are present normally. EXTREMITIES: Bilateral lower extremities have no calf tenderness, no ankle edema. NEUROLOGIC: Grossly nonfocal. DATA CBC: Lab Results Component Value Date WBC 10.5 04/06/2012 RBC 2.86* 04/06/2012 HGB 8.8* 04/06/2012 HCT 26.0* 04/06/2012 MCV 90.7 04/06/2012 MCH 30.6 04/06/2012 MCHC 33.8 04/06/2012 RDW 52.5 04/06/2012 PLT 248 04/06/2012 MPV 6.3 04/06/2012 DIFFTYPE AUTOMATED 04/06/2012 CMP: Lab Results Component Value Date NA 136 04/06/2012 K 4.0 04/06/2012 CL 94* 04/06/2012 CO2 29 04/06/2012 ANIONGAP 16 04/06/2012 GLUF 117* 04/06/2012 BUN 93* 04/06/2012 CREATININE 10.61* 04/06/2012 BCR 9 04/06/2012 CA 6.1* 04/06/2012 CA 6.1* 04/02/2012 PROT 5.2* 04/06/2012 ALB 1.6* 04/06/2012 GLOB 3.6 04/06/2012 BILITOT 0.4 04/06/2012 ALP 76 04/06/2012 AST 29 04/06/2012 ALT 23 04/06/2012 EGFR 6* 04/06/2012 Magnesium: Lab Results Component Value Date MG 1.8 04/06/2012 Phosphorus: Lab Results Component Value Date PHOS 5.5* 04/06/2012 PT/INR: Lab Results Component Value Date INR 1.3 04/03/2012 PTT: Lab Results Component Value Date APTT 36* 04/03/2012 [APTT Troponin: Lab Results Component Value Date TROPONINI 0.06 04/05/2012 Last 3 Troponin: Lab Results Component Value Date TROPONINI 0.06 04/05/2012 TROPONINI 0.06 04/05/2012 TROPONINI 0.05 04/05/2012 CPK: Lab Results Component Value Date CKTOTAL 1105* 04/05/2012 CKMB: Lab Results Component Value Date CKMB 11.2* 04/05/2012 Troponin I: Lab Results Component Value Date TROPONINI 0.06 04/05/2012 U/A: Lab Results Component Value Date COLORU YELLOW 04/06/2012 COLORU YELLOW 04/02/2012 CLARITYU CLOUDY 04/06/2012 CLARITYU TURBID 04/02/2012 MEROPENEM 1.015 04/06/2012 LEUKOCYTESUR SMALL* 04/06/2012 NITRITE POSITIVE* 04/06/2012 NITRITE NEGATIVE 04/02/2012 UROBILINOGEN 0.2 04/06/2012 UROBILINOGEN 0.2 04/02/2012 PHUR 7.0 04/06/2012 PHUR 5.0 04/02/2012 BLOODU LARGE* 04/06/2012 KETONES NEGATIVE 04/06/2012 BILIRUBINUR NEGATIVE 04/06/2012 BILIRUBINUR NEGATIVE 04/02/2012 GLUCOSEU NEGATIVE 04/06/2012 HgBA1c: Lab Results Component Value Date HGBA1C 5.4 04/03/2012 LABGLYC 108* 04/03/2012 TSH: Lab Results Component Value Date TSH 16.60* 04/03/2012 IRON: Lab Results Component Value Date IRON 55 04/02/2012 TIBC: Lab Results Component Value Date IRON 55 04/02/2012 TIBC 144.00* 04/02/2012 LABIRON 38 04/02/2012 FERRITIN: Lab Results Component Value Date FERRITIN 139 04/02/2012 WBC with Differentials: Lab Results Component Value Date NEUTROABS 8.0* 04/06/2012 LYMPHSABS 0.4* 04/06/2012 LYMPHOPCT 4.0* 04/06/2012 MONOPCT 7.1 04/06/2012 EOSABS 1.3* 04/06/2012 EOSPCT 12.3* 04/06/2012 BASOSABS 0.0 04/06/2012 BASOPCT 0.1 04/06/2012 PLTEST ADEQUATE 04/05/2012 COMDIFF SLIDE SCANNED, AGREES WITH AUTOMATED RESULTS. 04/05/2012 PROBLEM LIST Principal Problem: *Renal failure, acute Active Problems: Rhabdomyolysis Type II or unspecified type diabetes mellitus without mention of complication, not stated as uncontrolled Essential hypertension, benign Amphetamine and other psychostimulant dependence, continuous Hyperphosphatemia Anemia Acidosis Rash and nonspecific skin eruption Vitamin d deficiency Secondary hyperparathyroidism (of renal origin) Hypocalcemia Hypomagnesemia Hypokalemia ASSESSMENT & PLAN 1. Acute renal failure, etiology unclear, possibilities considered are nonsteroidal antiinflammatory drug-induced nephropathy from naproxen use and possible acute interstitial nephritis. Discussed with Dr. Timmons. The plan is for renal biopsy next week. ANCA is pending. Ultrasound did not reveal any obstructive uropathy. The patient has a Newman catheter, and he is nonoliguric. 2. Metabolic acidosis secondary to severe acute renal failure, on bicarbonate drip, improved. 3. Diabetes mellitus type 2. Controlled hyperglycemia. 4. Hypertension, controlled. 5. Amphetamine use. Counseled on cessation. 6. Hyperphosphatemia, on low phosphorus diet and Phos-Lo, secondary to renal failure. 7. Anemia. At the time of admission, severe, required 2 units of packed red blood cells transfusion per , epistaxis continuously for the past 2 months was noted and is now resolved. The patient is to follow with Dr. Monge post discharge. 8. Rash. Etiology unclear, suspect eczema herpeticum versus vasculitis. Solu-Medrol started by nephrology and acyclovir started by infectious disease. Monitor for improvement. Awaiting skin biopsy by Dr. Meza. 9. Hypocalcemia, on replacement with vitamin D and calcium. 10. Vitamin D deficiency, on replacement with vitamin D. 11. Rhabdomyolysis, mild, improving CPK. Etiology unclear. 12. Hypothyroidism, on replacement. Disposition: Acute care Code Status: Full Code EDITH DÍAZ MD 04/06/2012 uKisha good M D - 04/06/2012 12:27 PM PDT Progress Notes by Kisha Tello MD at 04/06/12 0557 Author: Kisha Tello MD Service: (none) Author Type: Physician Filed: 04/06/12 9696 Date of Service: 04/06/12 8243 Status: Signed Economic Development Coordinator: Kisha Tello MD (Physician) [facility] Service: Infectious Disease Progress Note Hospital Day: LOS: 4 days Post-Op Day: * No surgery found * SUBJECTIVE Patient Summary: 38-year-old male presents with rash, renal failure, rhabdomyolysis, epistaxis, without fevers. There was initial concern for hemoptysis although this consisted of throat clearing during an episode of epistaxis, with no respiratory symptoms and normal c hest x-ray. Airborne isolation was discontinued. He has not received any antibiotics. ID jose miguel pierce was requested of her concern about his skin rashes and possible underlying infection. T esting for HIV, syphilis and blood cultures all negative. Whole blood tuberculosis screen is pending. Events overnight- Patient continues to have the rash which is both painful and pruritic all over his body. Noted input from wound care. Denies any nausea vomiting Very tearful about the rash. Scheduled Medications amlodipine 10 mg Oral Daily calcitRIOL 0.25 mcg Oral Daily calcium acetate 1,334 mg Oral TID WC calcium carbonate 1,000 mg Oral Q8H calcium gluconate 1 g Intravenous Once calcium gluconate 1 g Intravenous Once calcium gluconate 2 g Intravenous Once carbamazepine 200 mg Oral TID ergocalciferol 50,000 Units Oral Weekly famotidine 20 mg Oral Daily Or famotidine 20 mg Intravenous Daily furosemide 40 mg Intravenous Once hydrocortisone Topical 4x Daily insulin aspart 0-10 Units Subcutaneous TID AC insulin aspart 0-5 Units Subcutaneous Nightly levothyroxine 25 mcg Oral QAM AC magnesium sulfate 1 g Intravenous Once methylPREDNISolone 500 mg Intravenous Daily potassium chloride 20 mEq Oral Once Continuous Infusions dextrose custom IV infusion builder 70 mL/hr at 04/05/12 2345 DISCONTD: custom IV infusion builder 125 mL/hr at 04/05/12 1618 PRN Medications acetaminophen, acetaminophen, albuterol, dextrose, dextrose, dextrose, diphenhydrAMINE, glu cagon, glucagon, hydrALAZINE, insulin aspart, mineral oil-hydrophilic petrolatum, ondansetro n, ondansetron, polyethylene glycol OBJECTIVE Vital Signs: BP 146/85 | Pulse 87 | Temp(Src) 98 F (36.7 C) (Axillary) | Resp 16 | Ht 1.702 m (5' 7" ) | Wt 93.8 kg (206 lb 12.7 oz) | BMI 32.39 kg/m2 | SpO2 100% Temp (24hrs), Av.2 F (36.8 C), Min:97.6 F (36.4 C), Max:98.7 F (37.1 C) Physical Exam Exam: Const: Vitals reviewed. No acute distress; Somnolent but easily aroused and attentive. Skin: Patient has eczematous areas with weeping present over his lower extremities also on his external auricles and over his hands. In addition to this eczematous rash there is also a discrete herpetiform rash that can be s een on his upper chest and upper extremities. ENT: No thrush. Lungs: CTAB, no rales or wheezes Heart: RRR, no murmur Abd: soft, NT, + bowel sounds DATA CBC: Lab Results Component Value Date WBC 10.5 04/06/2012 RBC 2.86* 04/06/2012 HGB 8.8* 04/06/2012 HCT 26.0* 04/06/2012 MCV 90.7 04/06/2012 MCH 30.6 04/06/2012 MCHC 33.8 04/06/2012 RDW 52.5 04/06/2012 PLT 248 04/06/2012 MPV 6.3 04/06/2012 DIFFTYPE AUTOMATED 04/06/2012 CMP: Lab Results Component Value Date NA 136 04/06/2012 K 4.0 04/06/2012 CL 94* 04/06/2012 CO2 29 04/06/2012 ANIONGAP 16 04/06/2012 GLUF 117* 04/06/2012 BUN 93* 04/06/2012 CREATININE 10.61* 04/06/2012 BCR 9 04/06/2012 CA 6.1* 04/06/2012 CA 6.1* 04/02/2012 PROT 5.2* 04/06/2012 ALB 1.6* 04/06/2012 GLOB 3.6 04/06/2012 BILITOT 0.4 04/06/2012 ALP 76 04/06/2012 AST 29 04/06/2012 ALT 23 04/06/2012 EGFR 6* 04/06/2012 PROBLEM LIST Principal Problem: *Renal failure, acute Active Problems: Rhabdomyolysis Type II or unspecified type diabetes mellitus without mention of complication, not stated as uncontrolled Essential hypertension, benign Amphetamine and other psychostimulant dependence, continuous Hyperphosphatemia Anemia Acidosis Rash and nonspecific skin eruption Vitamin d deficiency Secondary hyperparathyroidism (of renal origin) Hypocalcemia Hypomagnesemia Hypokalemia ASSESSMENT & PLAN Patient Active Hospital Problem List: Renal failure, acute (04/02/2012) Creatinine slowly coming down. Rash and nonspecific skin eruption (04/03/2012) There is a large component of eczema associated with a herpetiform rash. This raises suspicion for eczema herpeticum. I will start him on IV acyclovir adjusted for his renal function. Code Status: Full Code Kisha Tello MD 04/06/2012 i Timmons - 04/06/2012 10:59 AM PDTFormatting of this note might be different from the origi nal. Progress Notes by Juan Timmons MD at 04/06/12 1053 Author: Juan Timmons MD Service: Nephrology Author Type: Physician Filed: 04/10/12 1122 Date of Service: 04/06/12 1059 Status: Signed Economic Development Coordinator: Juan Timmons MD (Physician) [facility] Service: NEPHROLOGY PROGRESS Note Carol Potter 47 y.o. [id number] male Ashly Quick MD, MD Hospital Day: LOS: 4 days Date of Admission: 04/06/2012 HISTORY OF PRESENT ILLNESS The patient is a 47 y.o. male with significant past medical history of Past Medical History Diagnosis Date Hyperlipidemia Hypertension Diabetes mellitus type II Asthma Thyroid disease Anemia who presented by ambulance from [facility]. Was there at 04/01 at 2100 due to chest pain. He was given NTG there which relieved his pain. He was found have a creatinine of 14.2 and w as hyperkalemic with a K of 7.3. He was given Ca Gluconate, Insulin, D50, albuterol, kayexal ate, Bicarbonate. He also has been using methamphetamine on that day which he says he only recently started. The pt does complain of an "itchy rash." The pt's rash has been present fo r the past 4-5 days and is all over his body. Patient started on bicarb drip and ER has already started PRBC transfusion. He reports reso lution of chest pain. He does not have any PCP care prior to this and is basically noncompli ant with his medications. Denies nausea, vomiting, SOB, headacge. C/o penile pain post newman catheterization. BLACK STOOLS FOR LAST 3-4 DAYS, C/O NOSE BLEED FOR LAST FEW DAYS +VE RASH ITCHY ALL OVER BODY FOR ABOUT A WEEK Nephrology consulted for evaluation and management of ARF (last known cr in 2010 was1.7 pe r records) Lab Results Component Value Date BUN 93* 04/06/2012 BUN 94* 04/05/2012 BUN 104* 04/04/2012 BUN 106* 04/03/2012 BUN 122* 04/02/2012 CREATININE 10.61* 04/06/2012 CREATININE 11.44* 04/05/2012 CREATININE 11.98* 04/04/2012 CREATININE 13.34* 04/03/2012 CREATININE 14.39* 04/02/2012 ONSET ACUTE severity SEVERE, WORSENING Associated with fluid electrolyte acid base imbalances SEVERE HYPERKALEMIA/ ANEMIA/ ACIDOS IS/ HYPONATREMIA/ HYPERPHOSPHATEMIA RF; NAPROXEN 4 TAB DAILY FOR OVER A WEEK, HEMODYNAMIC EFEFCT OF LISINOPRIL, DIARRHEA WITH B LACK STOOLS, ANEMIA, ? AIN / VASCULITIS WITH RASH Pateint seen and examined Says feel weak, c/o itchy skin rash, ARM AND LEG SWELLING, HAD EPISODE OF V TACH NOTED ONCE +VE COUGH, RASH Denies cp, sob, nausea, vomiting, diarrhea, fever, headache, dizziness Past Medical History Diagnosis Date Hyperlipidemia Hypertension Diabetes mellitus type II Asthma Thyroid disease Anemia Past Surgical History Procedure Date Unlisted procedure arthroscopy Prescriptions prior to admission Medication Sig Dispense Refill ALBUTEROL IN Inhale 2 puffs into the lungs daily. aspirin 81 MG EC tablet Take 81 mg by mouth daily. lisinopril (PRINIVIL,ZESTRIL) 10 MG tablet Take 10 mg by mouth daily. naproxen (NAPROSYN) 500 MG tablet Take 500 mg by mouth 2 (two) times daily with meals. calcium carbonate (OS-BELTRAN) 600 MG TABS Take 600 mg by mouth daily. carbamazepine (TEGRETOL) 200 MG tablet Take 200 mg by mouth 3 (three) times daily. Per pt medication list pt takes 400 mg in a.m. And 200 mg in p.m. glipiZIDE (GLUCOTROL) 10 MG tablet Take 10 mg by mouth daily. metformin (GLUCOPHAGE) 1000 MG tablet Take 1,000 mg by mouth 2 (two) times daily with m eals. sitagliptan (JANUVIA) 100 MG tablet Take 100 mg by mouth daily. Allergies Allergen Reactions Penicillins Other (See Comments) unknown History reviewed. No pertinent family history. History Social History Marital Status: Spouse Name: [...] WITH [employer]; KIDSUNEMPLOYED BEFORE WORKED AT [employer] IN [place] NONE ETOH QUIT 15 YEARS AGODRUGS: USES METHAMPHETAMINES PER PATIENTF ATHER HAS COLON CANCER, HEART DISEASEMOTHER 15 YEARS AGONO FH KIDNEY PROBLEMS. History Social History Marital Status: Spouse Name: [...] WITH [employer]; KIDSUNEMPLOYED BEFORE WORKED AT [employer] IN [place] NONE ETOH QUIT 15 YEARS AGODRUGS: USES METHAMPHETAMINES PER PATIENTF ATHER HAS COLON CANCER, HEART DISEASEMOTHER 15 YEARS AGONO FH KIDNEY PROBLEMS. Scheduled Medications amlodipine 10 mg Oral Daily calcitRIOL 0.25 mcg Oral Daily calcium acetate 1,334 mg Oral TID WC calcium carbonate 1,000 mg Oral Q8H calcium gluconate 1 g Intravenous Once calcium gluconate 1 g Intravenous Once calcium gluconate 2 g Intravenous Once calcium gluconate 2 g Intravenous Once carbamazepine 200 mg Oral TID ergocalciferol 50,000 Units Oral Weekly famotidine 20 mg Oral Daily Or famotidine 20 mg Intravenous Daily furosemide 40 mg Intravenous Once hydrocortisone Topical 4x Daily insulin aspart 0-10 Units Subcutaneous TID AC insulin aspart 0-5 Units Subcutaneous Nightly levothyroxine 25 mcg Oral QAM AC magnesium sulfate 1 g Intravenous Once potassium chloride 20 mEq Oral Once Continuous Infusions dextrose custom IV infusion builder 70 mL/hr at 04/05/12 2345 DISCONTD: custom IV infusion builder 125 mL/hr at 04/05/12 1618 PRN Medications acetaminophen, acetaminophen, albuterol, dextrose, dextrose, dextrose, diphenhydrAMINE, glu cagon, glucagon, hydrALAZINE, insulin aspart, mineral oil-hydrophilic petrolatum, ondansetro n, ondansetron, polyethylene glycol Allergy: Allergies Allergen Reactions Penicillins Other (See Comments) unknown OBJECTIVE Vital Signs: BP 138/67 | Pulse 90 | Temp(Src) 97.8 F (36.6 C) (Axillary) | Resp 16 | Ht 1.702 m (5' 7") | Wt 93.8 kg (206 lb 12.7 oz) | BMI 32.39 kg/m2 | SpO2 99% I&O Detailed Table: I/O last 3 completed shifts: In: 4497 [P.O.:1700; I.V.:2697; IV Piggyback:100] Out: 3050 [Urine:3050] Weight change: Examination: APPEARANCE: The patient is a pleasant lying in no apparent distress. VITALS: Reviewed as listed. HEAD: NC/AT. EYES: Non-icteric sclera. +ve pale conjuctive ENT: No oropharyngeal erythema. Buccal mucosa is MOIST. NECK: Supple. No raised JVD. LUNGS: Clear to auscultation bilaterally. HEART: S1, S2, no pericardial rub noted. ABDOMEN: Full, soft, no tenderness. Bowel sounds are present. EXTREMITIES: +VE pedal edema noted. No cyanosis or clubbing. . SKIN: Warm to touch. Diffuse itchy vesicular rash all over body, confluent mini exco riations from his head to his toes with areas of hyperpigmentation/ SCABBED LESION seen at a nkle areas NEUROLOGIC: No gross focal motor deficit noted. PSYCH: The patient is alert and oriented x 3, mood and affect looks ok. +ve newman catheter LABS: Recent Results (from the past 24 hour(s)) CK MB Collection Time 04/05/12 11:30 AM Component Value Range MMB 12.9 (*) 0.5 - 3.6 ng/mL CK-MB Index 1.0 CK Collection Time 04/05/12 11:30 AM Component Value Range CPK 1251 (*) 55 - 400 U/L TROPONIN I Collection Time 04/05/12 11:30 AM Component Value Range TROPONIN I 0.05 0.00 - 0.10 ng/mL POCT GLUCOSE Collection Time 04/05/12 11:33 AM Component Value Range GLUCOSE,POC SCREEN 140 (*) 65 - 99 mg/dL POCT GLUCOSE Collection Time 04/05/12 4:04 PM Component Value Range GLUCOSE,POC SCREEN 174 (*) 65 - 99 mg/dL CK MB Collection Time 04/05/12 5:51 PM Component Value Range MMB 13.0 (*) 0.5 - 3.6 ng/mL CK-MB Index 1.0 CK Collection Time 04/05/12 5:51 PM Component Value Range CPK 1295 (*) 55 - 400 U/L TROPONIN I Collection Time 04/05/12 5:51 PM Component Value Range TROPONIN I 0.06 0.00 - 0.10 ng/mL POCT GLUCOSE Collection Time 04/05/12 9:52 PM Component Value Range GLUCOSE,POC SCREEN 209 (*) 65 - 99 mg/dL CK MB Collection Time 04/05/12 11:44 PM Component Value Range MMB 11.2 (*) 0.5 - 3.6 ng/mL CK-MB Index 1.0 CK Collection Time 04/05/12 11:44 PM Component Value Range CPK 1105 (*) 55 - 400 U/L TROPONIN I Collection Time 04/05/12 11:44 PM Component Value Range TROPONIN I 0.06 0.00 - 0.10 ng/mL URINALYSIS W/MICROSCOPIC (REFLEX TO CULTURE) Collection Time 04/06/12 12:22 AM Component Value Range COLOR YELLOW CLARITY CLOUDY SPECIFIC GRAVITY,URINE 1.015 1.001 - 1.035 LEUKOCYTE ESTERASE SMALL (*) NEGATIVE NITRITE POSITIVE (*) NEGATIVE UROBILINOGEN 0.2 <1.1 mg/dL PROTEIN 100 (*) NEGATIVE mg/dL PH,URINE 7.0 4.6 - 8.0 BLOOD LARGE (*) NEGATIVE KETONES NEGATIVE NEGATIVE mg/dL BILIRUBIN NEGATIVE NEGATIVE GLUCOSE NEGATIVE NEGATIVE mg/dL WBC 11-15 0 - 5 /hpf RBC 50-100 0 - 5 /hpf EPITHELIAL 0-2 BACTERIA 4+ (*) NONE SEEN Crystals 2+ COMPREHENSIVE METABOLIC PANEL Collection Time 04/06/12 5:20 AM Component Value Range SODIUM 136 135 - 143 mmol/L POTASSIUM 4.0 3.5 - 4.9 mmol/L CHLORIDE 94 (*) 99 - 109 mmol/L CO2 29 23 - 32 mmol/L ANION GAP AGAP 16 5 - 20 mmol/L GLUCOSE 117 (*) 65 - 99 mg/dL BUN 93 (*) 8 - 25 mg/dL CREATININE 10.61 (*) 0.70 - 1.30 mg/dL BUN/CREAT 9 CALCIUM 6.1 (*) 8.5 - 10.2 mg/dL TOTAL PROTEIN 5.2 (*) 6.3 - 8.2 g/dL Albumin 1.6 (*) 3.6 - 5.0 g/dL GLOBULIN 3.6 1.3 - 4.9 g/dL A/G 0.5 (*) 1.0 - 2.4 TBIL 0.4 0.1 - 1.5 mg/dL ALK PHOS 76 35 - 115 U/L AST 29 10 - 45 U/L ALT 23 10 - 65 U/L EGFR 6 (*) >60 mL/min/1.73m2 CBC W/AUTO DIFF (REFLEX TO MANUAL) Collection Time 04/06/12 5:20 AM Component Value Range WBC 10.5 3.8 - 11.0 K/uL RBC 2.86 (*) 4.20 - 5.70 M/uL HGB 8.8 (*) 13.2 - 17.0 g/dL HCT 26.0 (*) 39.0 - 50.0 % MCV 90.7 80.0 - 100.0 fl MCH 30.6 27.0 - 34.0 pg MCHC 33.8 32.0 - 35.5 g/dL RDW SD 52.5 37 - 53 fl PLT 248 150 - 400 K/uL MPV 6.3 DIFF TYPE AUTOMATED NEUTROPHILS 76.5 (*) 40 - 75 % LYMPHOCYTES 4.0 (*) 15 - 48 % MONOCYTES 7.1 0 - 12 % EOSINOPHILS 12.3 (*) 0 - 7 % BASOPHILS 0.1 0 - 2 % NEUTROPHILS ABS 8.0 (*) 1.9 - 7.4 K/uL LYMPHOCYTES ABS 0.4 (*) 1.0 - 3.9 K/uL MONOCYTES ABS 0.8 0 - 0.8 K/uL EOSINOPHILS ABS 1.3 (*) 0 - 0.5 K/uL BASOPHILS ABS 0.0 0 - 0.1 K/uL MAGNESIUM Collection Time 04/06/12 5:20 AM Component Value Range MAGNESIUM 1.8 1.7 - 2.4 mg/dL CALCIUM, IONIZED Collection Time 04/06/12 5:20 AM Component Value Range CA++ 0.74 (*) 1.08 - 1.25 mmol/L pH 7.497 (*) 7.300 - 7.450 PHOSPHOROUS Collection Time 04/06/12 5:20 AM Component Value Range PHOSPHORUS 5.5 (*) 2.3 - 4.8 mg/dL POCT GLUCOSE Collection Time 04/06/12 5:44 AM Component Value Range GLUCOSE,POC SCREEN 140 (*) 65 - 99 mg/dL IMAGING: Us renal 04/02/12 FINDINGS: Right kidney measures 9.5 by 5.3 x 4 .9 cm, and the left kidney measures 10.6 by 5.0 by 5.9 cm. Both kidneys appear unremarkable. No hydronephrosis. Urinary bladder is empty, with a Newman catheter in place. Ureteral jets are not seen. IMPRESSION: 1. Unremarkable appearance of the kidneys. 2. Empty urinary bladder with a Newman catheter in place. Patient's old records and labs were reviewed in detail and summarized. PROBLEM LIST Principal Problem: *Renal failure, acute Active Problems: Rhabdomyolysis Type II or unspecified type diabetes mellitus without mention of complication, not stated as uncontrolled Essential hypertension, benign Amphetamine and other psychostimulant dependence, continuous Hyperphosphatemia Anemia Acidosis Rash and nonspecific skin eruption Vitamin d deficiency Secondary hyperparathyroidism (of renal origin) Hypocalcemia Hypomagnesemia Hypokalemia ASSESSMENT & PLAN ARF UNRESOLVED SEVERE LIKELY SECONDARY TO Renal hypoperfusion/ NAPROXEN 4 TAB DAILY FOR OVER A WEEK/ HEMODYNAMIC EFEFCT OF LISINOPRIL/ DIARRHEA WITH BLACK STOOLS/ ANEMIA/ rhabdomyolysis ( cpk not too high )/ use of metamphetamine EOSINOPHILIA (WAS on naproxen) URINE EOSINOPHILS NEGATIVE RULED OUT HYDRONEPHROSIS PER US RENAL REVIEWED R.O ANCA VASCULITIS / negative ANTI GBM GIVEN EPISTAXIS VS ? HEMOPTYSIS THIS AM WITH ARF W/ U PENDING BEING FOLLOWED BY ID OK FROM ID POINT OF VIEW no active infection OK to give STEROIDS for possible RPGN/ VASCULITIS/ AIN GIVEN MICROSCOPIC HEMATURIA AND WORSENING RENAL FAILURE POSSIBLE KIDNEY BIOPSY AND NEED FOR DIALYSIS IN THE MEAN TIME, GOING TO GET SKIN BIOPSY ALSO START IV SOLUMEDROL 50 MG IVPB DAILY X 3 DAYS THEN PREDNISONE TAPER DEPENDING UPON KIDNEY B IOPSY GIVEN LASIX GIVEN DECREASED URINE OUTPUT/ SWELLING Hold lisinopril Stopped naproxen Stopped metformin given risk of lactic acidosis with cr above 1.5 in men Urine studies reviewed C3, C4 levels wnl, hep b/c NR, RF NEG, KAPPA/LAMBDA RATIO WNL, HIV NR ANCA PENDING ANTI GBM NEGATIVE Strict I & O, Daily weights Daily RFP Renal diet AVOID NSAIDS/ ADAM-2 INHIBITORS AVOID NEPHROTOXIC MEDS INCLUDING AMINOGLYCOSIDES/ IV CONTRAST Assess daily for need for hd Dose all meds for crcl less than 15 mls/min Lab Results Component Value Date BUN 93* 04/06/2012 BUN 94* 04/05/2012 BUN 104* 04/04/2012 BUN 106* 04/03/2012 BUN 122* 04/02/2012 CREATININE 10.61* 04/06/2012 CREATININE 11.44* 04/05/2012 CREATININE 11.98* 04/04/2012 CREATININE 13.34* 04/03/2012 CREATININE 14.39* 04/02/2012 [address] REPL[address] TO KEEP k GREATER THAN 3.8 REPEAT k LEVEL IN AM Lab Results Component Value Date K 4.0 04/06/2012 K 3.6 04/05/2012 K 3.5 04/04/2012 HYPOMAGNESEMIA NEW REPLACE TO KEEP MG GREATER THAN 1.5 REPEAT MG LEVEL IN AM Lab Results Component Value Date MG 1.8 04/06/2012 MG 1.6* 04/05/2012 MG 1.8 04/04/2012 ACIDOSIS IMPROVED Lab Results Component Value Date CO2 29 04/06/2012 CO2 24 04/05/2012 CO2 20* 04/04/2012 ANEMIA STABLE GOT PRBCS LIKELY DUE TO GI BLEED GI Dr lake saw patient CHECKED IRON PANEL NL IRON SAT BUT CHECKED POST TRANSFUSION Lab Results Component Value Date HGB 8.8* 04/06/2012 HGB 8.6* 04/05/2012 HGB 8.1* 04/04/2012 FERRITIN 139 04/02/2012 LABIRON 38 04/02/2012 HYPOCALCEMIA SEVERE GIVE CA GLUCONATE, given yesterday also STARTED ON VIT D AND CALCITRIOL DAILY continue TUMS 2 TAB TID HTN UNCONTROLLED BETTER CONTROLLED WATCH BP CLOSELY FOR NOW CONTINUE AMLODIPINE DAILY BP Readings from Last 3 Encounters: 04/06/12 138/67 HYPERPHOSPHATEMIA LIKELY SECONDARY TO ARF LOW P DIET continue PHOSLO 2 TAB TID WITH MEALS Lab Results Component Value Date PHOS 5.5* 04/06/2012 PHOS 6.6* 04/05/2012 PHOS 8.4* 04/04/2012 HYPONATREMIA CONTINUE IV FLUIDS Lab Results Component Value Date NA 136 04/06/2012 NA 133* 04/05/2012 NA 133* 04/04/2012 VIT D DEF: CONTINUE VIT D SECONDARY HYPERPARATHYROIDISM CONTINUE CALCITRIOL TIW Lab Results Component Value Date PTHINTACT 255* 04/02/2012 CASE DISCUSSED IN DETAIL WITH PATIENT/ FAMILY / HOSPITALIST dr díaz, ANSWERS ALL QUEST IONS IN DETAIL, VERBALIZES UNDERSTANDING JUAN TIMMONS MD 04/06/2012 rif, Juan Oliveros - 04/05/2012 11:20 AM PDT Progress Notes by Juan Timmons MD at 04/05/12 1120 Author: Juan Timmons MD Service: Nephrology Author Type: Physician Filed: 04/05/12 7096 Date of Service: 04/05/121119 Status: Signed Economic Development Coordinator: Juan Timmons MD (Physician) [facility] Service: NEPHROLOGY PROGRESS Note Carol Potter 47 y.o. [phone] [id number] male Ashly Quick MD, MD Hospital Day: LOS: 3 days Date of Admission: 04/05/2012 HISTORY OF PRESENT ILLNESS The patient is a 47 y.o. male with significant past medical history of Past Medical History Diagnosis Date Hyperlipidemia Hypertension Diabetes mellitus type II Asthma Thyroid disease Anemia who presented by ambulance from [facility]. Was there at 04/01 at 2100 due to chest pain. He was given NTG there which relieved his pain. He was found have a creatinine of 14.2 and w as hyperkalemic with a K of 7.3. He was given Ca Gluconate, Insulin, D50, albuterol, kayexal ate, Bicarbonate. He also has been using methamphetamine on that day which he says he only recently started. The pt does complain of an "itchy rash." The pt's rash has been present fo r the past 4-5 days and is all over his body. Patient started on bicarb drip and ER has already started PRBC transfusion. He reports reso lution of chest pain. He does not have any PCP care prior to this and is basically noncompli ant with his medications. Denies nausea, vomiting, SOB, headacge. C/o penile pain post newman catheterization. BLACK STOOLS FOR LAST 3-4 DAYS, C/O NOSE BLEED FOR LAST FEW DAYS +VE RASH ITCHY ALL OVER BODY FOR ABOUT A WEEK Nephrology consulted for evaluation and management of ARF (last known cr in 2010 was1.7 pe r records) Lab Results Component Value Date BUN 94* 04/05/2012 BUN 104* 04/04/2012 BUN 106* 04/03/2012 BUN 122* 04/02/2012 BUN 114* 04/02/2012 CREATININE 11.44* 04/05/2012 CREATININE 11.98* 04/04/2012 CREATININE 13.34* 04/03/2012 CREATININE 14.39* 04/02/2012 CREATININE 15.12* 04/02/2012 ONSET ACUTE severity SEVERE Associated with fluid electrolyte acid base imbalances SEVERE HYPERKALEMIA/ ANEMIA/ ACIDOS IS/ HYPONATREMIA/ HYPERPHOSPHATEMIA RF; NAPROXEN 4 TAB DAILY FOR OVER A WEEK, HEMODYNAMIC EFEFCT OF LISINOPRIL, DIARRHEA WITH B LACK STOOLS, ANEMIA, ? AIN / VASCULITIS WITH RASH Pateint seen and examined Says feel weak, c/o itchy skin, ARM AND LEG SWELLING Denies cp, sob, nausea, vomiting, diarrhea, fever, headache, rash, cough, dizziness Past Medical History Diagnosis Date Hyperlipidemia Hypertension Diabetes mellitus type II Asthma Thyroid disease Anemia Past Surgical History Procedure Date Unlisted procedure arthroscopy Prescriptions prior to admission Medication Sig Dispense Refill ALBUTEROL IN Inhale 2 puffs into the lungs daily. aspirin 81 MG EC tablet Take 81 mg by mouth daily. lisinopril (PRINIVIL,ZESTRIL) 10 MG tablet Take 10 mg by mouth daily. naproxen (NAPROSYN) 500 MG tablet Take 500 mg by mouth 2 (two) times daily with meals. calcium carbonate (OS-BELTRAN) 600 MG TABS Take 600 mg by mouth daily. carbamazepine (TEGRETOL) 200 MG tablet Take 200 mg by mouth 3 (three) times daily. Per pt medication list pt takes 400 mg in a.m. And 200 mg in p.m. glipiZIDE (GLUCOTROL) 10 MG tablet Take 10 mg by mouth daily. metformin (GLUCOPHAGE) 1000 MG tablet Take 1,000 mg by mouth 2 (two) times daily with m eals. sitagliptan (JUNUVIA) 100 MG tablet Take 100 mg by mouth daily. Allergies Allergen Reactions Penicillins Other (See Comments) unknown History reviewed. No pertinent family history. History Social History Marital Status: Spouse Name: [...] WITH [employer]; KIDSUNEMPLOYED BEFORE WORKED AT [employer] IN [employer] NONE ETOH QUIT 15 YEARS AGODRUGS: USES METHAMPHETAMINES PER PATIENTF ATHER HAS COLON CANCER, HEART DISEASEMOTHER 15 YEARS AGONO KIDNEY PROBLEMS. History Social History Marital Status: Spouse Name: [...] WITH [employer]; KIDSUNEMPLOYED BEFORE WORKED AT [employer] IN [place] NONE ETOH QUIT 15 YEARS AGODRUGS: USES METHAMPHETAMINES PER PATIENTF ATHER HAS COLON CANCER, HEART DISEASEMOTHER 15 YEARS AGONO FH KIDNEY PROBLEMS. Scheduled Medications amlodipine 10 mg Oral Daily calcitRIOL 0.25 mcg Oral Daily calcium acetate 1,334 mg Oral TID WC calcium carbonate 1,000 mg Oral Q8H calcium gluconate 2 g Intravenous Once calcium gluconate 2 g Intravenous Once carbamazepine 200 mg Oral TID ergocalciferol 50,000 Units Oral Weekly famotidine 20 mg Oral Daily Or famotidine 20 mg Intravenous Daily insulin aspart 0-10 Units Subcutaneous TID AC insulin aspart 0-5 Units Subcutaneous Nightly levothyroxine 25 mcg Oral QAM AC magnesium sulfate 1 g Intravenous Once potassium chloride 20 mEq Oral Once DISCONTD: calcium acetate 667 mg Oral TID WC Continuous Infusions dextrose custom IV infusion builder 125 mL/hr at 04/05/12 0246 PRN Medications acetaminophen, acetaminophen, albuterol, dextrose, dextrose, dextrose, diphenhydrAMINE, glu cagon, glucagon, hydrALAZINE, insulin aspart, ondansetron, ondansetron, polyethylene glycol Allergy: Allergies Allergen Reactions Penicillins Other (See Comments) unknown OBJECTIVE Vital Signs: BP 151/90 | Pulse 86 | Temp(Src) 97.6 F (36.4 C) (Tympanic) | Resp 20 | Ht 1.702 m (5' 7") | Wt 93.8 kg (206 lb 12.7 oz) | BMI 32.39 kg/m2 | SpO2 100% I&O Detailed Table: I/O last 3 completed shifts: In: 3706 [P.O.:2200; I.V.:1506] Out: 2100 [Urine:2100] Weight change: 4.8 kg (10 lb 9.3 oz) Examination: APPEARANCE: The patient is a pleasant lying in no apparent distress. VITALS: Reviewed as listed. HEAD: NC/AT. EYES: Non-icteric sclera. +ve pale conjuctive ENT: No oropharyngeal erythema. Buccal mucosa is MOIST. NECK: Supple. No raised JVD. LUNGS: Clear to auscultation bilaterally. HEART: S1, S2, no pericardial rub noted. ABDOMEN: Full, soft, no tenderness. Bowel sounds are present. EXTREMITIES: +VE pedal edema noted. No cyanosis or clubbing. . SKIN: Warm to touch. Diffuse itchy vesicular rash all over body, confluent mini exco riations from his head to his toes with areas of hyperpigmentation/ SCABBED LESION seen at a nkle areas NEUROLOGIC: No gross focal motor deficit noted. PSYCH: The patient is alert and oriented x 3, mood and affect looks ok. +ve newman catheter LABS: Recent Results (from the past 24 hour(s)) POCT GLUCOSE Collection Time 04/04/12 11:29 AM Component Value Range GLUCOSE,POC SCREEN 130 (*) 65 - 99 mg/dL POCT GLUCOSE Collection Time 04/04/12 4:26 PM Component Value Range GLUCOSE,POC SCREEN 146 (*) 65 - 99 mg/dL POCT GLUCOSE Collection Time 04/04/12 9:25 PM Component Value Range GLUCOSE,POC SCREEN 184 (*) 65 - 99 mg/dL CBC W/AUTO DIFF (REFLEX TO MANUAL) Collection Time 04/05/12 5:10 AM Component Value Range WBC 8.7 3.8 - 11.0 K/uL RBC 2.77 (*) 4.20 - 5.70 M/uL HGB 8.6 (*) 13.2 - 17.0 g/dL HCT 25.3 (*) 39.0 - 50.0 % MCV 91.3 80.0 - 100.0 fl MCH 30.9 27.0 - 34.0 pg MCHC 33.9 32.0 - 35.5 g/dL RDW SD 51.6 37 - 53 fl PLT 231 150 - 400 K/uL MPV 6.4 DIFF TYPE AUTOMATED NEUTROPHILS 71.3 40 - 75 % LYMPHOCYTES 4.6 (*) 15 - 48 % MONOCYTES 10.1 0 - 12 % EOSINOPHILS 13.8 (*) 0 - 7 % BASOPHILS 0.2 0 - 2 % NEUTROPHILS ABS 6.2 1.9 - 7.4 K/uL LYMPHOCYTES ABS 0.4 (*) 1.0 - 3.9 K/uL MONOCYTES ABS 0.9 (*) 0 - 0.8 K/uL EOSINOPHILS ABS 1.2 (*) 0 - 0.5 K/uL BASOPHILS ABS 0.0 0 - 0.1 K/uL Platelet Estimate ADEQUATE Diff Comment SLIDE SCANNED, AGREES WITH AUTOMATED RESULTS. MORPHOLOGY 1+ COMPREHENSIVE METABOLIC PANEL Collection Time 04/05/12 5:10 AM Component Value Range SODIUM 133 (*) 135 - 143 mmol/L POTASSIUM 3.6 3.5 - 4.9 mmol/L CHLORIDE 96 (*) 99 - 109 mmol/L CO2 24 23 - 32 mmol/L ANION GAP AGAP 17 5 - 20 mmol/L GLUCOSE 119 (*) 65 - 99 mg/dL BUN 94 (*) 8 - 25 mg/dL CREATININE 11.44 (*) 0.70 - 1.30 mg/dL BUN/CREAT 8 CALCIUM 5.4 (*) 8.5 - 10.2 mg/dL TOTAL PROTEIN 5.0 (*) 6.3 - 8.2 g/dL Albumin 1.7 (*) 3.6 - 5.0 g/dL GLOBULIN 3.3 1.3 - 4.9 g/dL A/G 0.5 (*) 1.0 - 2.4 TBIL 0.5 0.1 - 1.5 mg/dL ALK PHOS 79 35 - 115 U/L AST 33 10 - 45 U/L ALT 21 10 - 65 U/L EGFR 5 (*) >60 mL/min/1.73m2 MAGNESIUM Collection Time 04/05/12 5:10 AM Component Value Range MAGNESIUM 1.6 (*) 1.7 - 2.4 mg/dL PHOSPHOROUS Collection Time 04/05/12 5:10 AM Component Value Range PHOSPHORUS 6.6 (*) 2.3 - 4.8 mg/dL POCT GLUCOSE Collection Time 04/05/12 5:36 AM Component Value Range GLUCOSE,POC SCREEN 119 (*) 65 - 99 mg/dL IMAGING: Us renal 04/02/12 FINDINGS: Right kidney measures 9.5 by 5.3 x 4 .9 cm, and the left kidney measures 10.6 by 5.0 by 5.9 cm. Both kidneys appear unremarkable. No hydronephrosis. Urinary bladder is empty, with a Newman catheter in place. Ureteral jets are not seen. IMPRESSION: 1. Unremarkable appearance of the kidneys. 2. Empty urinary bladder with a Newman catheter in place. Patient's old records and labs were reviewed in detail and summarized. PROBLEM LIST Principal Problem: *Renal failure, acute Active Problems: Rhabdomyolysis Type II or unspecified type diabetes mellitus without mention of complication, not stated as uncontrolled Essential hypertension, benign Amphetamine and other psychostimulant dependence, continuous Hyperphosphatemia Anemia Acidosis Rash and nonspecific skin eruption Vitamin d deficiency Secondary hyperparathyroidism (of renal origin) Hypocalcemia Hypomagnesemia ASSESSMENT & PLAN ARF UNRESOLVED SEVERE LIKELY SECONDARY TO Renal hypoperfusion/ NAPROXEN 4 TAB DAILY FOR OVER A WEEK/ HEMODYNAMIC EFEFCT OF LISINOPRIL/ DIARRHEA WITH BLACK STOOLS/ ANEMIA/ rhabdomyolysis ( cpk not too high )/ use of metamphetamine EOSINOPHILIA (WAS on naproxen) URINE EOSINOPHILS NEGATIVE RULED OUT HYDRONEPHROSIS PER US RENAL REVIEWED R.O ANCA VASCULITIS / ANTI GBM GIVEN EPISTAXIS VS ? HEMOPTYSIS THIS AM WITH ARF W/U PENDING BEING FOLLOWED BY ID WILL CHECK WITH THEM IF OK FROM ID POINT OF VIEW CONSIDER GIVING STERO IDS AND POSSIBLE KIDNEY BIOPSY, GOING TO GET SKIN BIOPSY ALSO GIVE LASIX 40 MG IV X I GIVEN DECREASED URINE OUTPUT/ SWELLING Nahco3 drip Hold lisinopril Stopped naproxen Stopped metformin given risk of lactic acidosis with cr above 1.5 in men Urine studies reviewed C3, C4 levels wnl, hep b/c NR, RF NEG, KAPPA/LAMBDA RATIO WNL, HIV NR ANCA PENDING ANTI GBM NEGATIVE Strict I & O, Daily weights Daily RFP Renal diet AVOID NSAIDS/ ADAM-2 INHIBITORS AVOID NEPHROTOXIC MEDS INCLUDING AMINOGLYCOSIDES/ IV CONTRAST Assess daily for need for hd Dose all meds for crcl less than 15 mls/min Lab Results Component Value Date BUN 94* 04/05/2012 BUN 104* 04/04/2012 BUN 106* 04/03/2012 BUN 122* 04/02/2012 BUN 114* 04/02/2012 CREATININE 11.44* 04/05/2012 CREATININE 11.98* 04/04/2012 CREATININE 13.34* 04/03/2012 CREATININE 14.39* 04/02/2012 CREATININE 15.12* 04/02/2012 [address]POKALEMIA NEW REPLACE TO KEEP k GREATER THAN 3.8 REPEAT k LEVEL IN AM Lab Results Component Value Date K 3.6 04/05/2012 K 3.5 04/04/2012 K 4.1 04/03/2012 HYPOMAGNESEMIA NEW REPLACE TO KEEP MG GREATER THAN 1.5 REPEAT MG LEVEL IN AM Lab Results Component Value Date MG 1.6* 04/05/2012 MG 1.8 04/04/2012 MG 2.1 04/03/2012 ACIDOSIS IMPROVING CONTINUE NAHCO3 DRIP Lab Results Component Value Date CO2 24 04/05/2012 CO2 20* 04/04/2012 CO2 16* 04/03/2012 ANEMIA STABLE GOT PRBCS LIKELY DUE TO GI BLEED GI Dr lake saw patient CHECKED IRON PANEL NL IRON SAT BUT CHECKED POST TRANSFUSION Lab Results Component Value Date HGB 8.6* 04/05/2012 HGB 8.1* 04/04/2012 HGB 8.0* 04/04/2012 FERRITIN 139 04/02/2012 LABIRON 38 04/02/2012 HYPOCALCEMIA SEVERE GIVEN CA GLUCONATE 2 GMS IVPB X 1 given this am will give another 1 gm ivpb x 1 STARTED ON VIT D AND CALCITRIOL DAILY continue TUMS 2 TAB TID HTN UNCONTROLLED BETTER CONTROLLED WATCH BP CLOSELY FOR NOW CONTINUE AMLODIPINE DAILY BP Readings from Last 3 Encounters: 04/05/12 141/73 HYPERPHOSPHATEMIA LIKELY SECONDARY TO ARF LOW P DIET continue PHOSLO 2 TAB TID WITH MEALS Lab Results Component Value Date PHOS 6.6* 04/05/2012 PHOS 8.4* 04/04/2012 PHOS 9.8* 04/03/2012 HYPONATREMIA CONTINUE IV FLUIDS Lab Results Component Value Date NA 133* 04/05/2012 NA 133* 04/04/2012 NA 134* 04/03/2012 VIT D DEF: CONTINUE VIT D SECONDARY HYPERPARATHYROIDISM CONTINUE CALCITRIOL TIW Lab Results Component Value Date PTHINTACT 255* 04/02/2012 CASE DISCUSSED IN DETAIL WITH PATIENT/ FAMILY / HOSPITALIST, ANSWERS ALL QUESTIONS IN D ETAIL, VERBALIZES UNDERSTANDING JUAN TIMMONS MD 04/05/2012 ork, Trevor Franks - 04/05 9:36 AM PDT Progress Notes by Trevor Escobar DO at 04/05/12 0936 Author: Trevor Escobar DO Service: (none) Author Type: Physician Filed: 04/05/12 1045 Date of Service: 04/05/12935 Status: Signed Economic Development Coordinator: Trevor Escobar DO (Physician) [facility] Service: Infectious Disease Progress Note Hospital Day: LOS: 3 days Post-Op Day: * No surgery found * SUBJECTIVE Patient Summary: 38-year-old male presents with rash, renal failure, rhabdomyolysis, epistaxis, without fevers. There was initial concern for hemoptysis although this consisted of throat clearing during an episode of epistaxis, with no respiratory symptoms and normal c hest x-ray. Airborne isolation was discontinued. He has not received any antibiotics. ID jose miguel pierce was requested of her concern about his skin rashes and possible underlying infection. T esting for HIV, syphilis and blood cultures all negative. Whole blood tuberculosis screen is pending. CC: Skin rash Chart reviewed: No new events. Subjective The patient remains pruritic, but less so. He denies any pain, but did have heart palpitati ons earlier today and is being evaluated. He denies any cough or difficulty breathing. No na usea or diarrhea. ROS No fever, chills sweats. No nausea, vomiting or diarrhea. No rashes or pruritis. No oral pa in. Scheduled Medications amlodipine 10 mg Oral Daily calcitRIOL 0.25 mcg Oral Daily calcium acetate 1,334 mg Oral TID WC calcium carbonate 1,000 mg Oral Q8H calcium gluconate 2 g Intravenous Once calcium gluconate 2 g Intravenous Once carbamazepine 200 mg Oral TID ergocalciferol 50,000 Units Oral Weekly famotidine 20 mg Oral Daily Or famotidine 20 mg Intravenous Daily insulin aspart 0-10 Units Subcutaneous TID AC insulin aspart 0-5 Units Subcutaneous Nightly levothyroxine 25 mcg Oral QAM AC magnesium sulfate 1 g Intravenous Once potassium chloride 20 mEq Oral Once DISCONTD: calcium acetate 667 mg Oral TID WC Continuous Infusions dextrose custom IV infusion builder 125 mL/hr at 04/05/12 0246 PRN Medications acetaminophen, acetaminophen, albuterol, dextrose, dextrose, dextrose, diphenhydrAMINE, glu cagon, glucagon, hydrALAZINE, insulin aspart, ondansetron, ondansetron, polyethylene glycol OBJECTIVE Vital Signs: BP 151/90 | Pulse 86 | Temp(Src) 97.6 F (36.4 C) (Tympanic) | Resp 20 | Ht 1.702 m (5' 7") | Wt 93.8 kg (206 lb 12.7 oz) | BMI 32.39 kg/m2 | SpO2 100% Temp (24hrs), Av.2 F (36.8 C), Min:97.6 F (36.4 C), Max:98.9 F (37.2 C) Physical Exam Exam: Const: Vitals reviewed. No acute distress; Somnolent but easily aroused and attentive. Skin: Diffuse papular rash appears to be evolving, lesions are less raised. No ulceration o r vesicle formation. Bilateral ankle crusting plaque-like rash is peeling. No cellulitis. no edema ENT: No thrush. Lungs: CTAB, no rales or wheezes Heart: RRR, no murmur Abd: soft, NT, + bowel sounds DATA CBC: Lab Results Component Value Date WBC 8.7 04/05/2012 RBC 2.77* 04/05/2012 HGB 8.6* 04/05/2012 HCT 25.3* 04/05/2012 MCV 91.3 04/05/2012 MCH 30.9 04/05/2012 MCHC 33.9 04/05/2012 RDW 51.6 04/05/2012 PLT 231 04/05/2012 MPV 6.4 04/05/2012 DIFFTYPE AUTOMATED 04/05/2012 CMP: Lab Results Component Value Date NA 133* 04/05/2012 K 3.6 04/05/2012 CL 96* 04/05/2012 CO2 24 04/05/2012 ANIONGAP 17 04/05/2012 GLUF 119* 04/05/2012 BUN 94* 04/05/2012 CREATININE 11.44* 04/05/2012 BCR 8 04/05/2012 CA 5.4* 04/05/2012 CA 6.1* 04/02/2012 PROT 5.0* 04/05/2012 ALB 1.7* 04/05/2012 GLOB 3.3 04/05/2012 BILITOT 0.5 04/05/2012 ALP 79 04/05/2012 AST 33 04/05/2012 ALT 21 04/05/2012 EGFR 5* 04/05/2012 PROBLEM LIST Principal Problem: *Renal failure, acute Active Problems: Rhabdomyolysis Type II or unspecified type diabetes mellitus without mention of complication, not stated as uncontrolled Essential hypertension, benign Amphetamine and other psychostimulant dependence, continuous Hyperphosphatemia Anemia Acidosis Rash and nonspecific skin eruption Vitamin d deficiency Secondary hyperparathyroidism (of renal origin) Hypocalcemia Hypomagnesemia ASSESSMENT & PLAN Patient Active Hospital Problem List: Renal failure, acute (04/02/2012) Creatinine slowly coming down. Rash and nonspecific skin eruption (04/03/2012) I do not suspect an infectious etiology. This is likely related to his renal failure and rhabdomyolysis. I appreciate plans for skin biopsy. The rash on the ankles is chronic and s eparate, likely eczema or psoriasis. This is now peeling, but does not have any signs of inf ection. I do not see any indication for antibiotic therapy at this time. Will continue to follow. Dr. Tello will assume Infectious Diseases followup on Saturday04/06/2012. Code Status: Full Code TREVOR ESCOBAR DO 04/05/2012 Janene Ryan DO - 012 8:20 AM PDT Progress Notes by Janene Wheeler DO at 04/05/12819 Author: Janene Wheeler DO Service: Hospitalist Author Type: Physician Filed: 04/05/12825 Date of Service: 04/05/12819 Status: Signed Economic Development Coordinator: Janene Wheeler DO (Physician) [facility] Service: Hospitalist Progress Note Addendum Patient had a run of VTach 10 beats, has chest pain Will give IV Magnesium and IV calcium gluconate, and check cardiac enzymes. Code Status: Full Code JANENE WHEELER DO 04/05/20128:20 AM anene Wheeler DO - 03/24 7:11 AM PDT Progress Notes by Janene Wheeler DO at 04/05/12710 Author: Janene Wheeler DO Service: Hospitalist Author Type: Physician Filed: 04/05/1237 Date of Service: 04/05/12710 Status: Signed Economic Development Coordinator: Janene Wheeler DO (Physician) [facility] Service: Hospitalist Progress Note Hospital Day: LOS: 3 days Patient Summary: who presented by ambulance from [facility] Was there at 04/01 at 2100 due to chest pain. He was given NTG there which relieved his pain. He was found have a creatinine of 14.2 and was hyperkalemic with a K of 7.3. He was given Ca Gluconate, Insulin, D50, albuterol, kayexalate, Bicarb . No fluids given. He also has been using methamphetamine on that day which he says he only recently started. The pt does complain of an "itchy rash." The pt's rash has been present f or the past "4-5 days. And is all over his body. He denies any current chest pain. ER physic tatum has contacted Dr. Timmons who recommends bicarb drip and ER has already started RBC transfu quique. He reports resolution of chest pain. He does not have any PCP care prior to this and i s basically noncompliant with his medications. Denies nausea, vomiting, SOB, headacge. C/o p enile pain post catheterization. SUBJECTIVE Patient without complaints, denies chest pain, SOB, pruritus, sleepy. Events Overnight: none Scheduled Medications amlodipine 10 mg Oral Daily calcitRIOL 0.25 mcg Oral Daily calcium acetate 1,334 mg Oral TID WC calcium carbonate 1,000 mg Oral Q8H calcium gluconate 2 g Intravenous Once carbamazepine 200 mg Oral TID ergocalciferol 50,000 Units Oral Weekly famotidine 20 mg Oral Daily Or famotidine 20 mg Intravenous Daily insulin aspart 0-10 Units Subcutaneous TID AC insulin aspart 0-5 Units Subcutaneous Nightly levothyroxine 25 mcg Oral QAM AC potassium chloride 20 mEq Oral Once DISCONTD: calcium acetate 667 mg Oral TID WC Continuous Infusions dextrose custom IV infusion builder 125 mL/hr at 04/05/12 0246 PRN Medications acetaminophen, acetaminophen, albuterol, dextrose, dextrose, dextrose, diphenhydrAMINE, glu cagon, glucagon, hydrALAZINE, insulin aspart, ondansetron, ondansetron, polyethylene glycol OBJECTIVE Vital Signs: BP 166/81 | Pulse 92 | Temp(Src) 98.5 F (36.9 C) (Oral) | Resp 18 | Ht 1.702 m (5' 7") | Wt 93.8 kg (206 lb 12.7 oz) | BMI 32.39 kg/m2 | SpO2 100% Intake/Output Summary (Last 24 hours) at 04/05/12 0734 Last data filed at 04/05/12 0400 Gross per 24 hour Intake 600 ml Output 1000 ml Net -400 ml General: Alert and oriented x 3 Cardiovascular: Regular rate and rhythm, no murmurs, no thrills. Respiratory: Clear to auscultation, no wheezing or crackles, breathing non labored. Gastrointestinal: Soft, non-tender, non-distended, positive bowel sounds Musculoskeletal: no joint erythema or edema. Upper extremities no clubbing, cyanosis, eryt rosetta or edema. Lower extremities no clubbing, cyanosis erythema or edema. Skin: Warm and dry, no rashes. Excoriation throughout, occasional hand and foot bulla, weep ing mostly in back Neurological: cranial nerves II-Xll, and sensation grossly normal. Psychiatric: Normal mood/affect, Normal behavior DATA Lab 04/05/12 0510 04/04/12 0605 04/04/12 0011 04/03/12 0505 WBC 8.7 8.6 -- 8.4 HGB 8.6* 8.1* 8.0* -- HCT 25.3* 24.0* 23.8* -- PLT 231 215 -- 199 NEUTOPHILPCT 71.3 75.6* -- 67.7 MONOPCT 10.1 8.3 -- 8.7 Lab 04/05/12 0510 04/04/12 0605 04/03/12 0505 04/02/12 1126 NA 133* 133* 134* -- K 3.6 3.5 4.1 -- CL 96* 96* 101 -- CO2 24 20* 16* -- BUN 94* 104* 106* -- CREATININE 11.44* 11.98* 13.34* -- CALCIUM -- -- -- -- PROT 5.0* -- 5.3* 6.2* BILITOT 0.5 -- 0.9 1.2 ALKPHOS -- -- -- -- ALT 21 -- 25 28 AST 33 -- 32 38 GLUCOSE -- -- -- -- Phosphorus: Lab Results Component Value Date PHOS 6.6* 04/05/2012 No components found with this basename: LABALBU:3 Lab 04/05/12 0510 04/04/12 0605 04/03/12 0505 MG 1.6* 1.8 2.1 No results found for this basename: AMYLASE:3 in the last 168 hours No results found for this basename: PHART:3,PO2ART:3,PFF4IVI:3,W5JLOYKD:3,BEART:[address] 168 hours Lab 04/03/12 0505 04/02/12 0040 APTT 36* 40* INR 1.3 1.5 PTT -- -- Lab 04/03/12 0505 TSH 16.60* T3FREE -- FREET4 0.6* Lab 04/04/12 0605 04/03/12 0505 04/02/12 1126 04/02/12 0040 CKTOTAL 1260* 1219* 1373* -- TROPONINI -- -- -- -- TROPONINT -- -- -- -- CKMBINDEX -- -- -- 5.6 IMAGING Xr Chest 2 View 04/02/2012 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 TECHNIQUE: Two view chest, PA and lateral views FINDINGS: Mild cardiomegaly is demonstrated. There is no mediastinal wi dening or shift. There is no pneumothorax or effusion. Scattered fine reticular markings a re seen along the periphery of the lungs bilaterally in the lower lobes. The pulmonary vasc ulature is normal in caliber. There are no pulmonary nodules. Moderate acromioclavicular o steoarthritis is present. There is mild degenerative disk disease of the thoracic spine. I MPRESSION: 1. Scattered reticular markings in the lower lungs bilaterally which may reflect interstitial changes versus mild edema. Electronically signed by Braden Paige MD on 1 1:07 PM Ultrasound Retroperitoneal Limited 04/02/2012 HISTORY: Acute renal failure. COMPARISON: None. TECHNIQUE: 4-MHz curvilinear sonographic barrientos scale, color flow evaluation of the kidneys and urinary bladder. FINDINGS: Right kidney measures 9.5 by 5.3 x 4 .9 cm, and the left kidney measures 10.6 by 5.0 by 5.9 cm. Both kidneys appear unremarkable. No hydronephrosis. Urinary bladder is empty, with a Newman catheter in place. Ureteral jets are not seen. IMPRESSION: 1. Unremarkable appear ance of the kidneys. 2. Empty urinary bladder with a Newman catheter in place. Electronical ly signed by Wilton Lentz MD on 04/02/2012 11:58 AM PROBLEM LIST Principal Problem: *Renal failure, acute Active Problems: Hypomagnesemia Rhabdomyolysis Type II or unspecified type diabetes mellitus without mention of complication, not stated as uncontrolled Essential hypertension, benign Amphetamine and other psychostimulant dependence, continuous Hyperphosphatemia Anemia Acidosis Rash and nonspecific skin eruption Vitamin d deficiency Secondary hyperparathyroidism (of renal origin) Hypocalcemia PLAN Most likely secondary to hypoperfusion, NSAIDs, ACEI, and diarrhea. Dr Iain crooks, raudel serrano monitoring for possible hemodialysis if no improvement. Avoid nephrotoxins. Oliguric Mild, will monitor if still low in the am, will replace Resolving. Continue insulin coverage Uncontrol on current regimen most likely secondary to Renal failure. Nephrology following Advice on cessation Continue calcium acetate Anemia of chronic inflammation, iron studies noted, blood transfusion prn, monitor hemoglob in Resolved Dr Duran consulted for biopsy. Ergocalciferol Continue present treatment with calcium and vitamin D replacement. See above. AM labs Code Status: Full Code JANENE MARVINL, DO 04/05/20127:34 AM rifJuan - 6:04 PM PDT Progress Notes by Juan Timmons MD at 04/04/121803 Author: Juan Timmons MD Service: Nephrology Author Type: Physician Filed: 04/04/121811 Date of Service: 04/04/121803 Status: Signed Economic Development Coordinator: Juan Timmons MD (Physician) [facility] Service: NEPHROLOGY PROGRESS Note Carol Potter 47 y.o. [id number] male Ashly Quick MD, MD Hospital Day: LOS: 2 days Date of Admission: 04/04/2012 HISTORY OF PRESENT ILLNESS The patient is a 47 y.o. male with significant past medical history of Past Medical History Diagnosis Date Hyperlipidemia Hypertension Diabetes mellitus type II Asthma Thyroid disease Anemia who presented by ambulance from [facility]. Was there at 04/01 at 2100 due to chest pain. He was given NTG there which relieved his pain. He was found have a creatinine of 14.2 and w as hyperkalemic with a K of 7.3. He was given Ca Gluconate, Insulin, D50, albuterol, kayexal ate, Bicarbonate. He also has been using methamphetamine on that day which he says he only recently started. The pt does complain of an "itchy rash." The pt's rash has been present fo r the past 4-5 days and is all over his body. Patient started on bicarb drip and ER has already started PRBC transfusion. He reports reso lution of chest pain. He does not have any PCP care prior to this and is basically noncompli ant with his medications. Denies nausea, vomiting, SOB, headacge. C/o penile pain post newman catheterization. BLACK STOOLS FOR LAST 3-4 DAYS, C/O NOSE BLEED FOR LAST FEW DAYS +VE RASH ITCHY ALL OVER BODY FOR ABOUT A WEEK Nephrology consulted for evaluation and management of ARF (last known cr in 2010 was1.7 pe r records) Lab Results Component Value Date BUN 104* 04/04/2012 BUN 106* 04/03/2012 BUN 122* 04/02/2012 BUN 114* 04/02/2012 CREATININE 11.98* 04/04/2012 CREATININE 13.34* 04/03/2012 CREATININE 14.39* 04/02/2012 CREATININE 15.12* 04/02/2012 ONSET ACUTE severity SEVERE Associated with fluid electrolyte acid base imbalances SEVERE HYPERKALEMIA/ ANEMIA/ ACIDOS IS/ HYPONATREMIA/ HYPERPHOSPHATEMIA RF; NAPROXEN 4 TAB DAILY FOR OVER A WEEK, HEMODYNAMIC EFEFCT OF LISINOPRIL, DIARRHEA WITH B LACK STOOLS, ANEMIA, ? AIN / VASCULITIS WITH RASH Pateint seen and examined Says feel weak BUT better, c/o itchy skin Denies cp, sob, nausea, vomiting, diarrhea, fever, headache, rash, cough, dizziness Past Medical History Diagnosis Date Hyperlipidemia Hypertension Diabetes mellitus type II Asthma Thyroid disease Anemia Past Surgical History Procedure Date Unlisted procedure arthroscopy Prescriptions prior to admission Medication Sig Dispense Refill ALBUTEROL IN Inhale 2 puffs into the lungs daily. aspirin 81 MG EC tablet Take 81 mg by mouth daily. lisinopril (PRINIVIL,ZESTRIL) 10 MG tablet Take 10 mg by mouth daily. naproxen (NAPROSYN) 500 MG tablet Take 500 mg by mouth 2 (two) times daily with meals. calcium carbonate (OS-BELTRAN) 600 MG TABS Take 600 mg by mouth daily. carbamazepine (TEGRETOL) 200 MG tablet Take 200 mg by mouth 3 (three) times daily. Per pt medication list pt takes 400 mg in a.m. And 200 mg in p.m. glipiZIDE (GLUCOTROL) 10 MG tablet Take 10 mg by mouth daily. metformin (GLUCOPHAGE) 1000 MG tablet Take 1,000 mg by mouth 2 (two) times daily with m eals. sitagliptan (JANUVIA) 100 MG tablet Take 100 mg by mouth daily. Allergies Allergen Reactions Penicillins Other (See Comments) unknown History reviewed. No pertinent family history. History Social History Marital Status: Spouse Name: [...] WITH [employer]; KIDSUNEMPLOYED BEFORE WORKED AT [employer] IN [place] NONE ETOH QUIT 15 YEARS AGODRUGS: USES METHAMPHETAMINES PER PATIENTF KAREEM HAS COLON CANCER, HEART DISEASEMOTHER 15 YEARS AGONO KIDNEY PROBLEMS. History Social History Marital Status: Spouse Name: [...] WITH [employer]; KIDSUNEMPLOYED BEFORE WORKED AT [employer] IN [place] NONE ETOH QUIT 15 YEARS AGODRUGS: USES METHAMPHETAMINES PER PATIENTF KAREEM HAS COLON CANCER, HEART DISEASEMOTHER 15 YEARS AGONO FH KIDNEY PROBLEMS. Scheduled Medications amlodipine 10 mg Oral Daily calcitRIOL 0.25 mcg Oral Daily calcium acetate 667 mg Oral TID WC calcium gluconate 2 g Intravenous Once carbamazepine 200 mg Oral TID ergocalciferol 50,000 Units Oral Weekly famotidine 20 mg Oral Daily Or famotidine 20 mg Intravenous Daily insulin aspart 0-10 Units Subcutaneous TID AC insulin aspart 0-5 Units Subcutaneous Nightly levothyroxine 25 mcg Oral QAM AC potassium chloride 20 mEq Oral Once Continuous Infusions dextrose custom IV infusion builder 125 mL/hr at 04/04/12 1721 PRN Medications acetaminophen, acetaminophen, albuterol, dextrose, dextrose, dextrose, diphenhydrAMINE, glu cagon, glucagon, hydrALAZINE, insulin aspart, ondansetron, ondansetron, polyethylene glycol Allergy: Allergies Allergen Reactions Penicillins Other (See Comments) unknown OBJECTIVE Vital Signs: BP 124/94 | Pulse 84 | Temp(Src) 98 F (36.7 C) (Oral) | Resp 18 | Ht 1.702 m (5' 7") | Wt 89 kg (196 lb 3.4 oz) | BMI 30.73 kg/m2 | SpO2 100% I&O Detailed Table: I/O last 3 completed shifts: In: 9056 [P.O.:4700; I.V.:4356] Out: 2300 [Urine:2300] Weight change: 0.1 kg (3.5 oz) Examination: APPEARANCE: The patient is a pleasant lying in no apparent distress. VITALS: Reviewed as listed. HEAD: NC/AT. EYES: EOMI. Non-icteric sclera. +ve pale conjuctive ENT: No oropharyngeal erythema. Buccal mucosa is MOIST. NECK: Supple. No raised JVD or thyromegaly. LUNGS: Clear to auscultation bilaterally. HEART: S1, S2, no pericardial rub noted. ABDOMEN: Full, soft, no tenderness. Bowel sounds are present. EXTREMITIES: no pedal edema noted. No cyanosis or clubbing. . SKIN: Warm to touch. Diffuse itchy vesicular rash all over body, confluent mini exco riations from his head to his toes with areas of hyperpigmentation/ SCABBED LESION seen at a nkle areas NEUROLOGIC: No gross focal motor deficit noted. PSYCH: The patient is alert and oriented x 3, mood and affect looks ok, memory seems to be intact. BACK: no CVA tenderness noted +ve newman catheter LABS: Recent Results (from the past 24 hour(s)) POCT GLUCOSE Collection Time 04/03/12 9:08 PM Component Value Range GLUCOSE,POC SCREEN 100 (*) 65 - 99 mg/dL HGB AND HCT Collection Time 04/04/12 12:11 AM Component Value Range HGB 8.0 (*) 13.2 - 17.0 g/dL HCT 23.8 (*) 39.0 - 50.0 % URINALYSIS W/MICROSCOPIC (REFLEX TO CULTURE) Collection Time 04/04/12 1:52 AM Component Value Range COLOR YELLOW CLARITY CLEAR SPECIFIC GRAVITY,URINE 1.020 1.001 - 1.035 LEUKOCYTE ESTERASE NEGATIVE NEGATIVE NITRITE NEGATIVE NEGATIVE UROBILINOGEN 0.2 <1.1 mg/dL PROTEIN 100 (*) NEGATIVE mg/dL PH,URINE 6.0 4.6 - 8.0 BLOOD MODERATE (*) NEGATIVE KETONES NEGATIVE NEGATIVE mg/dL BILIRUBIN NEGATIVE NEGATIVE GLUCOSE NEGATIVE NEGATIVE mg/dL WBC 1-5 0 - 5 /hpf RBC 16-25 0 - 5 /hpf EPITHELIAL 1-5 BACTERIA 1+ (*) NONE SEEN Casts 1-5 Crystals 2+ POCT GLUCOSE Collection Time 04/04/12 5:41 AM Component Value Range GLUCOSE,POC SCREEN 149 (*) 65 - 99 mg/dL MAGNESIUM Collection Time 04/04/12 6:05 AM Component Value Range MAGNESIUM 1.8 1.7 - 2.4 mg/dL CBC W/AUTO DIFF (REFLEX TO MANUAL) Collection Time 04/04/12 6:05 AM Component Value Range WBC 8.6 3.8 - 11.0 K/uL RBC 2.68 (*) 4.20 - 5.70 M/uL HGB 8.1 (*) 13.2 - 17.0 g/dL HCT 24.0 (*) 39.0 - 50.0 % MCV 89.6 80.0 - 100.0 fl MCH 30.3 27.0 - 34.0 pg MCHC 33.8 32.0 - 35.5 g/dL RDW SD 53.4 (*) 37 - 53 fl PLT 215 150 - 400 K/uL MPV 6.4 DIFF TYPE AUTOMATED NEUTROPHILS 75.6 (*) 40 - 75 % LYMPHOCYTES 4.6 (*) 15 - 48 % MONOCYTES 8.3 0 - 12 % EOSINOPHILS 11.4 (*) 0 - 7 % BASOPHILS 0.1 0 - 2 % NEUTROPHILS ABS 6.5 1.9 - 7.4 K/uL LYMPHOCYTES ABS 0.4 (*) 1.0 - 3.9 K/uL MONOCYTES ABS 0.7 0 - 0.8 K/uL EOSINOPHILS ABS 1.0 (*) 0 - 0.5 K/uL BASOPHILS ABS 0.0 0 - 0.1 K/uL CK Collection Time 04/04/12 6:05 AM Component Value Range CPK 1260 (*) 55 - 400 U/L RENAL FUNCTION PANEL Collection Time 04/04/12 6:05 AM Component Value Range SODIUM 133 (*) 135 - 143 mmol/L POTASSIUM 3.5 3.5 - 4.9 mmol/L CHLORIDE 96 (*) 99 - 109 mmol/L CO2 20 (*) 23 - 32 mmol/L ANION GAP AGAP 21 (*) 5 - 20 mmol/L GLUCOSE 127 (*) 65 - 99 mg/dL BUN 104 (*) 8 - 25 mg/dL CREATININE 11.98 (*) 0.70 - 1.30 mg/dL CALCIUM <5.0 (*) 8.5 - 10.2 mg/dL Albumin 1.8 (*) 3.6 - 5.0 g/dL PHOSPHORUS 8.4 (*) 2.3 - 4.8 mg/dL EGFR 5 (*) >60 mL/min/1.73m2 CALCIUM, IONIZED Collection Time 04/04/12 11:11 AM Component Value Range CA++ 0.54 (*) 1.08 - 1.25 mmol/L pH 7.490 (*) 7.300 - 7.450 POCT GLUCOSE Collection Time 04/04/12 11:29 AM Component Value Range GLUCOSE,POC SCREEN 130 (*) 65 - 99 mg/dL POCT GLUCOSE Collection Time 04/04/12 4:26 PM Component Value Range GLUCOSE,POC SCREEN 146 (*) 65 - 99 mg/dL IMAGING: Us renal 04/02/12 FINDINGS: Right kidney measures 9.5 by 5.3 x 4 .9 cm, and the left kidney measures 10.6 by 5.0 by 5.9 cm. Both kidneys appear unremarkable. No hydronephrosis. Urinary bladder is empty, with a Newman catheter in place. Ureteral jets are not seen. IMPRESSION: 1. Unremarkable appearance of the kidneys. 2. Empty urinary bladder with a Newman catheter in place. Patient's old records and labs were reviewed in detail and summarized. PROBLEM LIST Principal Problem: *Renal failure, acute Active Problems: Rhabdomyolysis Type II or unspecified type diabetes mellitus without mention of complication, not stated as uncontrolled Essential hypertension, benign Amphetamine and other psychostimulant dependence, continuous Hyperphosphatemia Anemia Acidosis Rash and nonspecific skin eruption Vitamin d deficiency Secondary hyperparathyroidism (of renal origin) Hypokalemia Hypocalcemia ASSESSMENT & PLAN ARF UNRESOLVED SEVERE LIKELY SECONDARY TO Renal hypoperfusion/ NAPROXEN 4 TAB DAILY FOR OVER A WEEK/ HEMODYNAMIC EFEFCT OF LISINOPRIL/ DIARRHEA WITH BLACK STOOLS/ ANEMIA/ rhabdomyolysis ( cpk not too high )/ use of metamphetamine EOSINOPHILIA (WAS on naproxen) URINE EOSINOPHILS NEGATIVE RULED OUT HYDRONEPHROSIS PER US RENAL REVIEWED R.O ANCA VASCULITIS / ANTI GBM GIVEN EPISTAXIS VS ? HEMOPTYSIS THIS AM WITH ARF W/U PENDING Nahco3 drip Hold lisinopril Stopped naproxen Stopped metformin given risk of lactic acidosis with cr above 1.5 in men Urine studies reviewed C3, C4 levels wnl, hep b/c NR, RF NEG, KAPPA/LAMBDA RATIO WNL, HIV NR ANCA, ANTI GBM PENDING Strict I & O, Daily weights Daily RFP Renal diet AVOID NSAIDS/ ADAM-2 INHIBITORS AVOID NEPHROTOXIC MEDS INCLUDING AMINOGLYCOSIDES/ IV CONTRAST Assess daily for need for hd Dose all meds for crcl less than 15 mls/min Lab Results Component Value Date BUN 104* 04/04/2012 BUN 106* 04/03/2012 BUN 122* 04/02/2012 BUN 114* 04/02/2012 CREATININE 11.98* 04/04/2012 CREATININE 13.34* 04/03/2012 CREATININE 14.39* 04/02/2012 CREATININE 15.12* 04/02/2012 HYPERKALEMIA RESOLVED Likely secondary to ARF/ SEVERE ACIDOSIS contributing HYPOKALEMIA NEW REPLACE TO KEEP k GREATER THAN 3.8 REPEAT k LEVEL IN AM Lab Results Component Value Date K 3.5 04/04/2012 K 4.1 04/03/2012 K 4.9 04/02/2012 ACIDOSIS IMPROVING CONTINUE NAHCO3 DRIP Lab Results Component Value Date CO2 20* 04/04/2012 CO2 16* 04/03/2012 CO2 11* 04/02/2012 ANEMIA STABLE GOT PRBCS LIKELY DUE TO GI BLEED GI Dr lake saw patient CHECKED IRON PANEL NL IRON SAT BUT CHECKED POST TRANSFUSION Lab Results Component Value Date HGB 8.1* 04/04/2012 HGB 8.0* 04/04/2012 HGB 7.7* 04/03/2012 FERRITIN 139 04/02/2012 LABIRON 38 04/02/2012 HYPOCALCEMIA SEVERE NEW GIVE CA GLUCONATE 2 GMS IVPB X 1 STARTED ON VIT D AND CALCITRIOL DAILY START TUMS 2 TAB TID HTN UNCONTROLLED NEW WATCH BP CLOSELY FOR NOW START AMLODIPINE DAILY HYPERPHOSPHATEMIA LIKELY SECONDARY TO ARF LOW P DIET INCREASE PHOSLO 2 TAB TID WITH MEALS Lab Results Component Value Date PHOS 8.4* 04/04/2012 PHOS 9.8* 04/03/2012 PHOS 11.8* 04/02/2012 HYPONATREMIA NEW CONTINUE IV FLUIDS Lab Results Component Value Date NA 133* 04/04/2012 NA 134* 04/03/2012 NA 137 04/02/2012 VIT D DEF: CONTINUE VIT D SECONDARY HYPERPARATHYROIDISM CONTINUE CALCITRIOL TIW Lab Results Component Value Date PTHINTACT 255* 04/02/2012 CASE DISCUSSED IN DETAIL WITH PATIENT/ FAMILY / HOSPITALIST, ANSWERS ALL QUESTIONS IN D ETAIL, VERBALIZES UNDERSTANDING JUAN AHMED ARIF, MD 04/04/2012 athy Brown MSW - 04/04/2012 4:53 PM PDT Progress Notes by VANDANA Gonzalez at 04/04/121652 Author: VANDANA Gonzalez Service: (none) Author Type: Community Development Officer Filed: 04/04/121653 Date of Service: 04/04/121652 Status: Signed Economic Development Coordinator: VANDANA Gonzalez (Community Development Officer) CM provided patient's family members two meal vouchers, an adult and a teenager. Pt has In [facility], with family to transport upon discharge. anene Wheeler DO - 04/04/2012 2:59 PM PDT Progress Notes by Janene Wheeler DO at 04/04/12 635 Author: Janene Wheeler DO Service: Hospitalist Author Type: Physician Filed: 04/04/12 8488 Date of Service: 04/04/121458 Status: Signed Economic Development Coordinator: Janene Wheeler DO (Physician) [facility] Service: Hospitalist Progress Note Hospital Day: LOS: 2 days Patient Summary: who presented by ambulance from [facility]. Was there at 04/01 at 2100 due to chest pain. He was given NTG there which relieved his pain. He was found have a creatinine of 14.2 and was hyperkalemic with a K of 7.3. He was given Ca Gluconate, Insulin, D50, albuterol, kayexalate, Bicarb . No fluids given. He also has been using methamphetamine on that day which he says he only recently started. The pt does complain of an "itchy rash." The pt's rash has been present f or the past "4-5 days. And is all over his body. He denies any current chest pain. ER physic tatum has contacted Dr. Timmons who recommends bicarb drip and ER has already started RBC transfu quique. He reports resolution of chest pain. He does not have any PCP care prior to this and i s basically noncompliant with his medications. Denies nausea, vomiting, SOB, headacge. C/o p enile pain post catheterization. SUBJECTIVE Patient without complaints, denies chest pain, SOB, pruritus, sleepy. Events Overnight: none Scheduled Medications amlodipine 10 mg Oral Daily calcitRIOL 0.25 mcg Oral Daily calcium acetate 667 mg Oral TID WC calcium gluconate 2 g Intravenous Once carbamazepine 200 mg Oral TID ergocalciferol 50,000 Units Oral Weekly famotidine 20 mg Oral Daily Or famotidine 20 mg Intravenous Daily insulin aspart 0-10 Units Subcutaneous TID AC insulin aspart 0-5 Units Subcutaneous Nightly levothyroxine 25 mcg Oral QAM AC potassium chloride 20 mEq Oral Once Continuous Infusions dextrose custom IV infusion builder 125 mL/hr at 04/04/12 1721 PRN Medications acetaminophen, acetaminophen, albuterol, dextrose, dextrose, dextrose, diphenhydrAMINE, glu cagon, glucagon, hydrALAZINE, insulin aspart, ondansetron, ondansetron, polyethylene glycol OBJECTIVE Vital Signs: BP 124/94 | Pulse 84 | Temp(Src) 98 F (36.7 C) (Oral) | Resp 18 | Ht 1.702 m (5' 7") | Wt 89 kg (196 lb 3.4 oz) | BMI 30.73 kg/m2 | SpO2 100% Intake/Output Summary (Last 24 hours) at 04/04/12 1734 Last data filed at 04/04/12 0625 Gross per 24 hour Intake 4395 ml Output 1100 ml Net 3295 ml General: Alert and oriented x 3 Cardiovascular: Regular rate and rhythm, no murmurs, no thrills. Respiratory: Clear to auscultation, no wheezing or crackles, breathing non labored. Gastrointestinal: Soft, non-tender, non-distended, positive bowel sounds Musculoskeletal: no joint erythema or edema. Upper extremities no clubbing, cyanosis, eryt rosetta or edema. Lower extremities no clubbing, cyanosis erythema or edema. Skin: Warm and dry, no rashes. Excoriation throughout, occasional hand and foot bulla Neurological: cranial nerves II-Xll, and sensation grossly normal. Psychiatric: Normal mood/affect, Normal behavior DATA Lab 04/04/1260404/04/12 0011 04/03/12 1750 04/03/12 0505 04/02/12 1126 WBC 8.6 -- -- 8.4 8.8 HGB 8.1* 8.0* 7.7* -- -- HCT 24.0* 23.8* 22.8* -- -- PLT 215 -- -- 199 210 NEUTOPHILPCT 75.6* -- -- 67.7 79.1* MONOPCT 8.3 -- -- 8.7 6.3 Lab 04/04/1260404/03/12 0505 04/02/12112504/02/12 0040 NA 133* 134* 137 -- K 3.5 4.1 4.9 -- CL 96* 101 107 -- CO2 20* 16* 11* -- BUN 104* 106* 122* -- CREATININE 11.98* 13.34* 14.39* -- CALCIUM -- -- -- -- PROT -- 5.3* 6.2* 6.2* BILITOT -- 0.9 1.2 1.3 ALKPHOS -- -- -- -- ALT -- 25 28 32 AST -- 32 38 45 GLUCOSE -- -- -- -- Phosphorus: Lab Results Component Value Date PHOS 8.4* 04/04/2012 No components found with this basename: LABALBU:3 Lab 04/04/1260404/03/12 05004/02/12 112 MG 1.8 2.1 2.3 No results found for this basename: AMYLASE:3 in the last 168 hours No results found for this basename: PHART:3,PO2ART:3,EZH2LIB:3,C4FJXLEX:3,BEART:[address] 168 hours Lab 04/03/12 0505 04/02/12 0040 APTT 36* 40* INR 1.3 1.5 PTT -- -- Lab 04/03/12 050 TSH 16.60* T3FREE -- FREET4 0.6* Lab 04/04/1260404/03/12 0505 04/02/12 11204/02/12 0040 CKTOTAL 1260* 1219* 1373* -- TROPONINI -- -- -- -- TROPONINT -- -- -- -- CKMBINDEX -- -- -- 5.6 IMAGING Xr Chest 2 View 04/02/2012 CAROL POTTER 1965 47 years Male XR CHEST 2 VIEW FRONTAL AND LATERAL 2 1:00 PM INDICATION: Shortness of breath COMPARISON: None. TECHNIQUE: Two view chest, PA and lateral views FINDINGS: Mild cardiomegaly is demonstrated. There is no mediastinal wi dening or shift. There is no pneumothorax or effusion. Scattered fine reticular markings a re seen along the periphery of the lungs bilaterally in the lower lobes. The pulmonary vasc ulature is normal in caliber. There are no pulmonary nodules. Moderate acromioclavicular o steoarthritis is present. There is mild degenerative disk disease of the thoracic spine. I MPRESSION: 1. Scattered reticular markings in the lower lungs bilaterally which may reflect interstitial changes versus mild edema. Electronically signed by Braden Paige MD on 1 1:07 PM Ultrasound Retroperitoneal Limited 04/02/2012 HISTORY: Acute renal failure. COMPARISON: None. TECHNIQUE: 4-MHz curvilinear sonographic barrientos scale, color flow evaluation of the kidneys and urinary bladder. FINDINGS: Right kidney measures 9.5 by 5.3 x 4 .9 cm, and the left kidney measures 10.6 by 5.0 by 5.9 cm. Both kidneys appear unremarkable. No hydronephrosis. Urinary bladder is empty, with a Newamn catheter in place. Ureteral jets are not seen. IMPRESSION: 1. Unremarkable appear ance of the kidneys. 2. Empty urinary bladder with a Newman catheter in place. Electronical ly signed by Wilton Lentz MD on 04/02/2012 11:58 AM PROBLEM LIST Principal Problem: *Renal failure, acute Active Problems: Rhabdomyolysis Type II or unspecified type diabetes mellitus without mention of complication, not stated as uncontrolled Essential hypertension, benign Amphetamine and other psychostimulant dependence, continuous Hyperkalemia Hyperphosphatemia Anemia Acidosis Rash and nonspecific skin eruption Vitamin d deficiency Secondary hyperparathyroidism (of renal origin) PLAN Dr Timmons following, closely monitoring for possible hemodialysis if no improvement. Resolving Continue insulin coverage Control on current regimen Advice on cessation Resolved Continue calcium acetate Most likely anemia of chronic inflammation may need a blood transfusion, monitor hemoglobin Continue IVF as per Dr Timmons Chronic may need a punch biopsy. Ergocalciferol Continue present treatment with calcium and vitamin D replacement. AM labs Code Status: Full Code JANENE WHEELER DO 04/04/20125:34 PM oTrevor herman - 012 9:41 AM PDT Progress Notes by Trevor Escobar DO at 04/04/12940 Author: Trevor Escobar DO Service: (none) Author Type: Physician Filed: 04/04/12946 Date of Service: 04/04/12940 Status: Signed Economic Development Coordinator: Trevor Escobar DO (Physician) [facility] Service: Infectious Disease Progress Note Hospital Day: LOS: 2 days Post-Op Day: * No surgery found * SUBJECTIVE Patient Summary: 38-year-old male presents with rash, renal failure, rhabdomyolysis, epistaxis, without fevers. There was initial concern for hemoptysis although this consisted of throat clearing during an episode of epistaxis, with no respiratory symptoms and normal c hest x-ray. Airborne isolation was discontinued. He has not received any antibiotics. ID jose miguel stan was requested of her concern about his skin rashes and possible underlying infection. T esting for HIV, syphilis and blood cultures all negative. Whole blood tuberculosis screen is pending. CC: Skin rash Chart reviewed: No new events. Subjective The patient remains pruritic, but has had some symptom relief with Benadryl. Benadryl has m ronnie him somnolent. He still denies any cough or difficulty breathing. No fevers or chills. ROS No fever, chills sweats. No nausea, vomiting or diarrhea. No rashes or pruritis. No oral pa in. Scheduled Medications calcitRIOL 0.25 mcg Oral Daily calcium acetate 667 mg Oral TID WC carbamazepine 200 mg Oral TID ergocalciferol 50,000 Units Oral Weekly famotidine 20 mg Oral Daily Or famotidine 20 mg Intravenous Daily insulin aspart 0-10 Units Subcutaneous TID AC insulin aspart 0-5 Units Subcutaneous Nightly levothyroxine 25 mcg Oral QAM AC Continuous Infusions dextrose custom IV infusion builder 125 mL/hr at 04/04/12 0142 PRN Medications acetaminophen, acetaminophen, albuterol, dextrose, dextrose, dextrose, diphenhydrAMINE, glu cagon, glucagon, hydrALAZINE, insulin aspart, ondansetron, ondansetron, polyethylene glycol OBJECTIVE Vital Signs: BP 160/83 | Pulse 84 | Temp(Src) 97.8 F (36.6 C) (Oral) | Resp 20 | Ht 1.702 m (5' 7") | Wt 89 kg (196 lb 3.4 oz) | BMI 30.73 kg/m2 | SpO2 99% Temp (24hrs), Av.3 F (36.8 C), Min:97.8 F (36.6 C), Max:98.7 F (37.1 C) Physical Exam Exam: Const: Vitals reviewed. No acute distress; Somnolent but easily aroused and attentive. Skin: Diffuse papular rash unchanged. Bilateral ankle crusting plaque-like rash is also unc hanged. No cellulitis. no edema ENT: No thrush. Lungs: CTAB, no rales or wheezes Heart: RRR, no murmur Abd: soft, NT, + bowel sounds DATA CBC: Lab Results Component Value Date WBC 8.6 04/04/2012 RBC 2.68* 04/04/2012 HGB 8.1* 04/04/2012 HCT 24.0* 04/04/2012 MCV 89.6 04/04/2012 MCH 30.3 04/04/2012 MCHC 33.8 04/04/2012 RDW 53.4* 04/04/2012 PLT 215 04/04/2012 MPV 6.4 04/04/2012 DIFFTYPE AUTOMATED 04/04/2012 CMP: Lab Results Component Value Date NA 133* 04/04/2012 K 3.5 04/04/2012 CL 96* 04/04/2012 CO2 20* 04/04/2012 ANIONGAP 21* 04/04/2012 GLUF 127* 04/04/2012 BUN 104* 04/04/2012 CREATININE 11.98* 04/04/2012 BCR 8 04/03/2012 CA <5.0* 04/04/2012 CA 6.1* 04/02/2012 PROT 5.3* 04/03/2012 ALB 1.8* 04/04/2012 GLOB 3.5 04/03/2012 BILITOT 0.9 04/03/2012 ALP 69 04/03/2012 AST 32 04/03/2012 ALT 25 04/03/2012 EGFR 5* 04/04/2012 PROBLEM LIST Principal Problem: *Renal failure, acute Active Problems: Rhabdomyolysis Type II or unspecified type diabetes mellitus without mention of complication, not stated as uncontrolled Essential hypertension, benign Amphetamine and other psychostimulant dependence, continuous Hyperkalemia Unspecified asthma Hyperphosphatemia Anemia Acidosis Rash and nonspecific skin eruption Vitamin d deficiency Secondary hyperparathyroidism (of renal origin) ASSESSMENT & PLAN Patient Active Hospital Problem List: Renal failure, acute (04/02/2012) Creatinine slowly coming down. Amphetamine and other psychostimulant dependence, continuous (04/02/2012) It is unclear whether his symptoms could all be attributed to his drug use, although per the history, he had symptoms coming on prior to his recent use of methamphetamine. Rash and nonspecific skin eruption (04/03/2012) I do not suspect an infectious etiology. This is likely related to his renal failure and rhabdomyolysis. If diagnosis Is not clear from his blood work, skin biopsy may be useful. The rash on the ankles is chronic and separate, likely eczema or psoriasis. I do not see any indication for antibiotic therapy at this time. Will continue to follow. Code Status: Full Code TREVOR ESCOBAR DO 04/04/2012 Kathy Nance MSW - 04/2012 1:56 PM PDT Progress Notes by VANDANA Gonzalez at 04/03/12 9890 Author: VANDANA Gonzalez Service: (none) Author Type: Community Development Officer Filed: 04/03/12 5975 Date of Service: 04/03/12 154 Status: Signed Economic Development Coordinator: VANDANA Gonzalez (Community Development Officer) faxed proof of admission with patient's signed consent to release medical information in hard chart to [facility] and Health and Mechanical Engineering Manager. Sister Margarita had requested so she could apply for gas voucher to visit her brother. Juan Farrar - 04/03/2012 11:49 AM PDT Progress Notes by Juan Timmons MD at 04/03/12 5346 Author: Juan Timmons MD Service: Nephrology Author Type: Physician Filed: 04/03/12 2236 Date of Service: 04/03/121148 Status: Signed Economic Development Coordinator: Juna Timmons MD (Physician) [facility] Service: NEPHROLOGY PROGRESS Note Carol Potter 47 y.o. [id number] male Ashly Quick MD, MD Hospital Day: LOS: 1 day Date of Admission: 04/03/2012 HISTORY OF PRESENT ILLNESS The patient is a 47 y.o. male with significant past medical history of Past Medical History Diagnosis Date Hyperlipidemia Hypertension Diabetes mellitus type II Asthma Thyroid disease Anemia who presented by ambulance from [facility]. Was there at 04/01 at 2100 due to chest pain. He was given NTG there which relieved his pain. He was found have a creatinine of 14.2 and w as hyperkalemic with a K of 7.3. He was given Ca Gluconate, Insulin, D50, albuterol, kayexal ate, Bicarbonate. He also has been using methamphetamine on that day which he says he only recently started. The pt does complain of an "itchy rash." The pt's rash has been present fo r the past 4-5 days and is all over his body. Patient started on bicarb drip and ER has already started PRBC transfusion. He reports reso lution of chest pain. He does not have any PCP care prior to this and is basically noncompli ant with his medications. Denies nausea, vomiting, SOB, headacge. C/o penile pain post newman catheterization. BLACK STOOLS FOR LAST 3-4 DAYS, C/O NOSE BLEED FOR LAST FEW DAYS +VE RASH ITCHY ALL OVER BODY FOR ABOUT A WEEK Nephrology consulted for evaluation and management of ARF (last known crea in 2010 was1.7 per records) Lab Results Component Value Date BUN 106* 04/03/2012 BUN 122* 04/02/2012 BUN 114* 04/02/2012 CREATININE 13.34* 04/03/2012 CREATININE 14.39* 04/02/2012 CREATININE 15.12* 04/02/2012 ONSET ACUTE severity SEVERE Associated with fluid electrolyte acid base imbalances SEVERE HYPERKALEMIA/ ANEMIA/ ACIDOS IS/ HYPONATREMIA/ HYPERPHOSPHATEMIA RF; NAPROXEN 4 TAB DAILY FOR OVER A WEEK, HEMODYNAMIC EFEFCT OF LISINOPRIL, DIARRHEA WITH B LACK STOOLS, ANEMIA, ? AIN / VASCULITIS WITH RASH Pateint seen and examined Says feel weak BUT better, c/o itchy skin Denies cp, sob, nausea, vomiting, diarrhea, fever, headache, rash, cough, dizziness Past Medical History Diagnosis Date Hyperlipidemia Hypertension Diabetes mellitus type II Asthma Thyroid disease Anemia Past Surgical History Procedure Date Unlisted procedure arthroscopy Prescriptions prior to admission Medication Sig Dispense Refill ALBUTEROL IN Inhale 2 puffs into the lungs daily. aspirin 81 MG EC tablet Take 81 mg by mouth daily. lisinopril (PRINIVIL,ZESTRIL) 10 MG tablet Take 10 mg by mouth daily. naproxen (NAPROSYN) 500 MG tablet Take 500 mg by mouth 2 (two) times daily with meals. calcium carbonate (OS-BELTRAN) 600 MG TABS Take 600 mg by mouth daily. carbamazepine (TEGRETOL) 200 MG tablet Take 200 mg by mouth 3 (three) times daily. Per pt medication list pt takes 400 mg in a.m. And 200 mg in p.m. glipiZIDE (GLUCOTROL) 10 MG tablet Take 10 mg by mouth daily. metformin (GLUCOPHAGE) 1000 MG tablet Take 1,000 mg by mouth 2 (two) times daily with m eals. sitagliptan (JANUVIA) 100 MG tablet Take 100 mg by mouth daily. Allergies Allergen Reactions Penicillins Other (See Comments) unknown History reviewed. No pertinent family history. History Social History Marital Status: Spouse Name: [...] WITH [employer]; KIDSUNEMPLOYED BEFORE WORKED AT [employer] IN [employer]/ [employer] COURSESMOKE NONE ETOH QUIT 15 YEARS AGODRUGS: USES METHAMPHETAMINES PER PATIENTF ATHER HAS COLON CANCER, HEART DISEASEMOTHER 15 YEARS AGONO FH KIDNEY PROBLEMS. History Social History Marital Status: Spouse Name: [...] WITH [employer]; KIDSUNEMPLOYED BEFORE WORKED AT [employer] IN [place] NONE ETOH QUIT 15 YEARS AGODRUGS: USES METHAMPHETAMINES PER PATIENTF ATHER HAS COLON CANCER, HEART DISEASEMOTHER 15 YEARS AGONO FH KIDNEY PROBLEMS. Scheduled Medications carbamazepine 200 mg Oral TID famotidine 20 mg Oral Daily Or famotidine 20 mg Intravenous Daily Continuous Infusions dextrose custom IV infusion builder 125 mL/hr at 04/02/12 2308 PRN Medications acetaminophen, acetaminophen, albuterol, dextrose, dextrose, dextrose, glucagon, glucagon, hydrALAZINE, ondansetron, ondansetron, polyethylene glycol Allergy: Allergies Allergen Reactions Penicillins Other (See Comments) unknown OBJECTIVE Vital Signs: BP 150/74 | Pulse 84 | Temp(Src) 98 F (36.7 C) (Oral) | Resp 16 | Ht 1.702 m (5' 7") | Wt 88.9 kg (195 lb 15.8 oz) | BMI 30.70 kg/m2 | SpO2 100% I&O Detailed Table: I/O last 3 completed shifts: In: 5363 [P.O.:2300; I.V.:3063] Out: 1450 [Urine:1450] Weight change: Examination: APPEARANCE: The patient is a pleasant lying in no apparent distress. VITALS: Reviewed as listed. HEAD: NC/AT. EYES: EOMI. Non-icteric sclera. +ve pale conjuctive ENT: No oropharyngeal erythema. Buccal mucosa is MOIST. NECK: Supple. No raised JVD or thyromegaly. LUNGS: Clear to auscultation bilaterally. HEART: S1, S2, no pericardial rub noted. ABDOMEN: Full, soft, no tenderness. Bowel sounds are present. EXTREMITIES: no pedal edema noted. No cyanosis or clubbing. . SKIN: Warm to touch. Diffuse itchy vesicular rash all over body, confluent mini exco riations from his head to his toes with areas of hyperpigmentation/ SCABBED LESION seen at a nkle areas NEUROLOGIC: No gross focal motor deficit noted. PSYCH: The patient is alert and oriented x 3, mood and affect looks ok, memory seems to be intact. BACK: no CVA tenderness noted +ve newman catheter LABS: Recent Results (from the past 24 hour(s)) SODIUM, URINE, RANDOM Collection Time 04/02/12 3:30 PM Component Value Range UR SODIUM,RANDOM 46 (*) 90 - 104 mmol/L HGB AND HCT Collection Time 04/02/12 4:43 PM Component Value Range HGB 8.5 (*) 13.2 - 17.0 g/dL HCT 25.0 (*) 39.0 - 50.0 % CBC W/AUTO DIFF (REFLEX TO MANUAL) Collection Time 04/03/12 5:05 AM Component Value Range WBC 8.4 3.8 - 11.0 K/uL RBC 2.52 (*) 4.20 - 5.70 M/uL HGB 7.8 (*) 13.2 - 17.0 g/dL HCT 22.5 (*) 39.0 - 50.0 % MCV 89.4 80.0 - 100.0 fl MCH 30.8 27.0 - 34.0 pg MCHC 34.4 32.0 - 35.5 g/dL RDW SD 52.5 37 - 53 fl PLT 199 150 - 400 K/uL MPV 6.7 DIFF TYPE AUTOMATED NEUTROPHILS 67.7 40 - 75 % LYMPHOCYTES 6.8 (*) 15 - 48 % MONOCYTES 8.7 0 - 12 % EOSINOPHILS 16.5 (*) 0 - 7 % BASOPHILS 0.3 0 - 2 % NEUTROPHILS ABS 5.7 1.9 - 7.4 K/uL LYMPHOCYTES ABS 0.6 (*) 1.0 - 3.9 K/uL MONOCYTES ABS 0.7 0 - 0.8 K/uL EOSINOPHILS ABS 1.4 (*) 0 - 0.5 K/uL BASOPHILS ABS 0.0 0 - 0.1 K/uL APTT Collection Time 04/03/12 5:05 AM Component Value Range APTT 36 (*) 23 - 32 seconds COMPREHENSIVE METABOLIC PANEL Collection Time 04/03/12 5:05 AM Component Value Range SODIUM 134 (*) 135 - 143 mmol/L POTASSIUM 4.1 3.5 - 4.9 mmol/L CHLORIDE 101 99 - 109 mmol/L CO2 16 (*) 23 - 32 mmol/L ANION GAP AGAP 22 (*) 5 - 20 mmol/L GLUCOSE 89 65 - 99 mg/dL BUN 106 (*) 8 - 25 mg/dL CREATININE 13.34 (*) 0.70 - 1.30 mg/dL BUN/CREAT 8 CALCIUM 5.4 (*) 8.5 - 10.2 mg/dL TOTAL PROTEIN 5.3 (*) 6.3 - 8.2 g/dL Albumin 1.8 (*) 3.6 - 5.0 g/dL GLOBULIN 3.5 1.3 - 4.9 g/dL A/G 0.5 (*) 1.0 - 2.4 TBIL 0.9 0.1 - 1.5 mg/dL ALK PHOS 69 35 - 115 U/L AST 32 10 - 45 U/L ALT 25 10 - 65 U/L EGFR 4 (*) >60 mL/min/1.73m2 GLYCOHEMOGLOBIN A1C Collection Time 04/03/12 5:05 AM Component Value Range HEMOGLOBIN A1C 5.4 4.0 - 6.0 % ESTIMATED AVG GLUCOSE 108 (*) 65 - 99 mg/dL MAGNESIUM Collection Time 04/03/12 5:05 AM Component Value Range MAGNESIUM 2.1 1.7 - 2.4 mg/dL PHOSPHOROUS Collection Time 04/03/12 5:05 AM Component Value Range PHOSPHORUS 9.8 (*) 2.3 - 4.8 mg/dL TSH Collection Time 04/03/12 5:05 AM Component Value Range TSH 16.60 (*) 0.45 - 5.10 uIU/mL PROTIME-INR Collection Time 04/03/12 5:05 AM Component Value Range INR 1.3 0.9 - 3.5 CK Collection Time 04/03/12 5:05 AM Component Value Range CPK 1219 (*) 55 - 400 U/L T4, FREE Collection Time 04/03/12 5:05 AM Component Value Range FREE T4 0.6 (*) 0.7 - 1.5 ng/dL HGB AND HCT Collection Time 04/03/12 9:22 AM Component Value Range HGB 7.9 (*) 13.2 - 17.0 g/dL HCT 23.1 (*) 39.0 - 50.0 % IMAGING: Us renal 04/02/12 FINDINGS: Right kidney measures 9.5 by 5.3 x 4 .9 cm, and the left kidney measures 10.6 by 5.0 by 5.9 cm. Both kidneys appear unremarkable. No hydronephrosis. Urinary bladder is empty, with a Newman catheter in place. Ureteral jets are not seen. IMPRESSION: 1. Unremarkable appearance of the kidneys. 2. Empty urinary bladder with a Newman catheter in place. Patient's old records and labs were reviewed in detail and summarized. PROBLEM LIST Principal Problem: *Renal failure, acute Active Problems: Rhabdomyolysis Type II or unspecified type diabetes mellitus without mention of complication, not stated as uncontrolled Essential hypertension, benign Amphetamine and other psychostimulant dependence, continuous Hyperkalemia Unspecified asthma Hyperphosphatemia Anemia Acidosis ASSESSMENT & PLAN ARF LIKELY SECONDARY TO Renal hypoperfusion/ NAPROXEN 4 TAB DAILY FOR OVER A WEEK/ HEMODYNAMIC EFEFCT OF LISINOPRIL/ DIARRHEA WITH BLACK STOOLS/ ANEMIA/ rhabdomyolysis ( cpk not too high )/ use of metamphetamine EOSINOPHILIA (WAS on naproxen) URINE EOSINOPHILS NEGATIVE RULED OUT HYDRONEPHROSIS PER US RENAL REVIEWED R.O ANCA VASCULITIS / ANTI GBM GIVEN EPISTAXIS VS ? HEMOPTYSIS THIS AM WITH ARF W/U PENDING Nahco3 drip Hold lisinopril Stopped naproxen Stopped metformin given risk of lactic acidosis with cr above 1.5 in men Urine studies reviewed C3, C4 levels wnl, hep b/c NR, RF NEG, KAPPA/LAMBDA RATIO WNL, HIV NR ANCA, ANTI GBM PENDING Strict I & O, Daily weights Daily RFP Renal diet AVOID NSAIDS/ ADAM-2 INHIBITORS AVOID NEPHROTOXIC MEDS INCLUDING AMINOGLYCOSIDES/ IV CONTRAST Assess daily for need for hd Dose all meds for crcl less than 15 mls/min Lab Results Component Value Date BUN 106* 04/03/2012 BUN 122* 04/02/2012 BUN 114* 04/02/2012 CREATININE 13.34* 04/03/2012 CREATININE 14.39* 04/02/2012 CREATININE 15.12* 04/02/2012 HYPERKALEMIA IMPROVING Likely secondary to ARF/ SEVERE ACIDOSIS contributing nahco3 drip Low k diet Lab Results Component Value Date K 4.1 04/03/2012 K 4.9 04/02/2012 K 5.9* 04/02/2012 . ACIDOSIS CONTINUE NAHCO3 DRIP Lab Results Component Value Date CO2 16* 04/03/2012 CO2 11* 04/02/2012 CO2 8* 04/02/2012 ANEMIA GOT PRBCS LIKELY DUE TO GI BLEED GI Dr lake saw patient CHECKED IRON PANEL NL IRON SAT BUT CHECKED POST TRANSFUSION Lab Results Component Value Date HGB 7.7* 04/03/2012 HGB 8.0* 04/03/2012 HGB 7.9* 04/03/2012 FERRITIN 139 04/02/2012 LABIRON 38 04/02/2012 HTN WATCH BP CLOSELY FOR NOW BP Readings from Last 3 Encounters: 04/03/12 150/74 HYPERPHOSPHATEMIA LIKELY SECONDARY TO ARF LOW P DIET START PHOSLO WITH MEALS Lab Results Component Value Date PHOS 9.8* 04/03/2012 PHOS 11.8* 04/02/2012 HYPONATREMIA NEW CONTINUE IV FLUIDS Lab Results Component Value Date NA 134* 04/03/2012 NA 137 04/02/2012 NA 135 04/02/2012 VIT D DEF: NEW START VIT D SECONDARY HYPERPARATHYROIDISM NEW START CALCITRIOL TIW Lab Results Component Value Date PTHINTACT 255* 04/02/2012 CASE DISCUSSED IN DETAIL WITH PATIENT/ FAMILY / HOSPITALIST, ANSWERS ALL QUESTIONS IN D ETAIL, VERBALIZES UNDERSTANDING JUAN TIMMONS MD 04/03/2012 edihuyen, Adeola Willoughby MD - 04/03/2012 8:32 AM PDT Progress Notes by Adeola Crabtree MD at 04/03/12831 Author: Adeola Crabtree MD Service: Hospitalist Author Type: Physician Filed: 04/03/12 1413 Date of Service: 04/03/12831 Status: Signed Economic Development Coordinator: Adeola Crabtree MD (Physician) [facility] Service: Hospitalist Progress Note Hospital Day: LOS: 1 day SUBJECTIVE Patient Summary: 47 yo male who presented by ambulance from [facility] Was there at 04/01 at 2100 due to c hest pain. He was given NTG there which relieved his pain. He was found have a creatinine of 14.2 and was hyperkalemic with a K of 7.3. He was given Ca Gluconate, Insulin, D50, albuter ol, kayexalate, Bicarb. No fluids given. He also has been using methamphetamine on that day which he says he only recently started. The pt does complain of an "itchy rash." The pt's ra sh has been present for the past "4-5 days. And is all over his body. He denies any current chest pain. ER physician has contacted Dr. Timmons who recommends bicarb drip and ER has alread y started RBC transfusion. He reports resolution of chest pain. He does not have any PCP car e prior to this and is basically noncompliant with his medications. Denies nausea, vomiting, SOB, headacge. C/o penile pain post catheterization. Upon discussing with the patient and Dr. Timmons, it seems like the patient had melanotic stoo ls for the past week. He also has been having epistaxis or the past week. He was taking napr oxen 4x a day in the past week as well. He was noted to be "coughing blood" hence the isolat ion and TB work up. The patient states though that he usually feel nauseated and when he gag s, blood comes up. Events Overnight: The patient is uncomfortable in bed and stats that he is very itchy . He denies any abdominal pain or chest pain, no shortness of breath, no nausea or vomiting. He states that he is very grateful for all the things that we are doing for him. He has not had any episodes of bloody emesis/sputum. Scheduled Medications carbamazepine 200 mg Oral TID famotidine 20 mg Oral Daily Or famotidine 20 mg Intravenous Daily DISCONTD: famotidine 20 mg Intravenous BID DISCONTD: famotidine 20 mg Oral BID Continuous Infusions dextrose custom IV infusion builder 125 mL/hr at 04/02/12 2308 DISCONTD: sodium chloride PRN Medications acetaminophen, acetaminophen, albuterol, dextrose, dextrose, dextrose, glucagon, glucagon, hydrALAZINE, ondansetron, ondansetron, polyethylene glycol OBJECTIVE Vital Signs: BP 135/69 | Pulse 88 | Temp(Src) 98.5 F (36.9 C) (Oral) | Resp 18 | Ht 1.702 m (5' 7") | Wt 88.9 kg (195 lb 15.8 oz) | BMI 30.70 kg/m2 | SpO2 100% General Appearance: Alert, cooperative, appears uncomfortable Head: Normocephalic, without obvious abnormality, atraumatic Eyes: PERRL, conjunctiva/corneas clear, EOM's intact. Neck: Supple, symmetrical, trachea midline, thyroid: no enlargement/tenderness/nodules; no carotid bruit or JVD Lungs: Wheezing bilaterally, respirations unlabored Chest Wall: No tenderness or deformity Heart: Regular rate and rhythm, S1 and S2 normal, no murmur, rub or gallop Abdomen: Soft, n on-tender, bowel sounds active all four quadrants, no masses, no organomegaly Psychiatric: Alert and oriented x 3. Intact Judgement and insight Extremities: Extremities normal, atraumatic, no cyanosis or edema Pulses: 2+ and symmetric all extremities Skin: Scabbed lesions generalized over entire body including face Lymph nodes: Cervical nodes normal Neurologic: CNII-XII intact, grossly normal strength, sensation and reflexes throughout DATA Results Procedure Component Value Units Date/Time Urine Culture [[id number]] Collected:04/02/12228 Specimen Information:Urine Updated:04/03/12 132 Specimen Description CATHETERIZED URINE Specimen Description Result: Testing performed at [facility];[address] [place] [address] CULTURE NO GROWTH 1 DAY CULTURE Result: Testing performed at [address] [address] REPORT STATUS PENDING Results Procedure Component Value Units Date/Time Urine Culture [[id number]] Collected:04/02/12228 Specimen Information:Urine Updated:04/03/12 132 Specimen Description CATHETERIZED URINE Specimen Description Result: Testing performed at [facility];[address] [place] [address] CULTURE NO GROWTH 1 DAY CULTURE Result: Testing performed at [address] [address] REPORT STATUS PENDING Urine eosinophils [[id number]] Collected:04/02/12 1530 URINE EOSINOPHILS NO EOSINOPHILS SEEN % Updated:04/03/12 1315 Type and Cross [[id number]] Collected:04/02/12 0125 Specimen Information:Blood Updated:04/03/12 1309 ARM BAND NUMBER [id number] ARM BAND NUMBER Result: Testing performed at [facility];[address] [place] [address];[place] [address] ABO/RH(D) O POSITIVE ABO/RH(D) Result: Testing performed at [facility];[address] [place] [address];[place] [address] ANTIBODY SCREEN NEGATIVE ANTIBODY SCREEN Result: Testing performed at [facility];[address] [place] [address];[place] [address] UNIT NUMBER [id number] BLOOD COMPONENT TYPE LEUKODEPLETED PC UNIT DIVISION 00 STATUS OF UNIT ISSUED,FINAL TRANSFUSION STATUS OK TO TRANSFUSE CROSSMATCH RESULT COMPATIBLE UNIT NUMBER [id number] BLOOD COMPONENT TYPE LEUKODEPLETED PC UNIT DIVISION 00 STATUS OF UNIT ISSUED,FINAL TRANSFUSION STATUS OK TO TRANSFUSE CROSSMATCH RESULT COMPATIBLE UNIT NUMBER [id number] BLOOD COMPONENT TYPE LEUKODEPLETED PC UNIT DIVISION 00 STATUS OF UNIT ALLOCATED TRANSFUSION STATUS OK TO TRANSFUSE CROSSMATCH RESULT COMPATIBLE UNIT NUMBER [id number] BLOOD COMPONENT TYPE LEUKODEPLETED PC UNIT DIVISION 00 STATUS OF UNIT ALLOCATED TRANSFUSION STATUS OK TO TRANSFUSE CROSSMATCH RESULT COMPATIBLE Hemoglobin and hematocrit [[id number]] Collected:04/03/12 1215 Updated:04/03/12 1223 Protein electrophoresis [[id number]] (Abnormal) Collected:04/02/12 1126 Specimen Information:Blood Updated:04/03/12 1135 TOTAL PROTEIN,SERUM 5.3 (L) g/dL ALBUMIN 2.7 (L) g/dL ALPHA 1 0.3 g/dL ALPHA 2 0.8 g/dL BETA 1 0.2 (L) g/dL BETA 2 0.3 g/dL Gamma Globulin 0.9 g/dL Albumin % 51.0 % Alpha 1 % 5.7 % Alpha 2 % 14.7 % BETA 1 4.4 (L) % BETA 2 6.3 % Gamma Globulin % 17.9 % SPEP Interpretation SEE BELOW Treponema pallidum reflex [[id number]] Collected:04/02/12 1126 TREP PALLIDUM BY EIA NEGATIVE Updated:04/03/12 0951 Hemoglobin and hematocrit [[id number]] (Abnormal) Collected:04/03/12 0922 HGB 7.9 (L) g/dL Updated:04/03/12 0935 HCT 23.1 (L) % PTH, intact and calcium [[id number]] (Abnormal) Collected:04/02/121125 Specimen Information:Blood Updated:04/03/12926 CALCIUM 6.1 (L) mg/dL PTH,INTACT 255 (H) pg/mL Free T4 [[id number]] (Abnormal) Collected:04/03/12504 FREE T4 0.6 (L) ng/dL Updated:04/03/12902 CPK [[id number]] (Abnormal) Collected:04/03/12504 CPK 1219 (H) U/L Updated:04/03/12902 Glycohemoglobin A1c [[id number]] (Abnormal) Collected:04/03/12504 Specimen Information:Blood Updated:04/03/12711 HEMOGLOBIN A1C 5.4 % ESTIMATED AVG GLUCOSE 108 (H) mg/dL Comprehensive metabolic panel [[id number]] (Abnormal) Collected:04/03/12504 Specimen Information:Blood Updated:04/03/12638 SODIUM 134 (L) mmol/L POTASSIUM 4.1 mmol/L CHLORIDE 101 mmol/L CO2 16 (L) mmol/L ANION GAP AGAP 22 (H) mmol/L GLUCOSE 89 mg/dL BUN 106 (H) mg/dL CREATININE 13.34 (H) mg/dL BUN/CREAT 8 CALCIUM 5.4 (LL) mg/dL TOTAL PROTEIN 5.3 (L) g/dL Albumin 1.8 (L) g/dL GLOBULIN 3.5 g/dL A/G 0.5 (L) TBIL 0.9 mg/dL ALK PHOS 69 U/L AST 32 U/L ALT 25 U/L EGFR 4 (L) mL/min/1.73m2 Magnesium [[id number]] Collected:04/03/12504 Specimen Information:Blood Updated:04/03/12638 MAGNESIUM 2.1 mg/dL Phosphorus [[id number]] (Abnormal) Collected:04/03/12504 Specimen Information:Blood Updated:04/03/12638 PHOSPHORUS 9.8 (HH) mg/dL TSH [[id number]] (Abnormal) Collected:04/03/12504 Specimen Information:Blood Updated:04/03/12638 TSH 16.60 (H) uIU/mL aPTT [[id number]] (Abnormal) Collected:04/03/12504 Specimen Information:Blood Updated:04/03/12627 APTT 36 (H) seconds Protime-INR [[id number]] Collected:04/03/12504 Specimen Information:Blood Updated:04/03/12627 INR 1.3 CBC w/auto diff (reflex to manual) [[id number]] (Abnormal) Collected:04/03/12 0505 Specimen Information:Blood Updated:04/03/12617 WBC 8.4 K/uL RBC 2.52 (L) M/uL HGB 7.8 (L) g/dL HCT 22.5 (L) % MCV 89.4 fl MCH 30.8 pg MCHC 34.4 g/dL RDW SD 52.5 fl PLT 199 K/uL MPV 6.7 fl DIFF TYPE AUTOMATED NEUTROPHILS 67.7 % LYMPHOCYTES 6.8 (L) % MONOCYTES 8.7 % EOSINOPHILS 16.5 (H) % BASOPHILS 0.3 % NEUTROPHILS ABS 5.7 K/uL LYMPHOCYTES ABS 0.6 (L) K/uL MONOCYTES ABS 0.7 K/uL EOSINOPHILS ABS 1.4 (H) K/uL BASOPHILS ABS 0.0 K/uL Idabel/Lambda LC RATI [[id number]] Collected:04/02/12 112 Idabel 875 mg/dL Updated:04/03/12 0449 Lambda 463 mg/dL RASHID/LAMBDA RATIO 1.89 Sodium, urine, random [[id number]] (Abnormal) Collected:04/02/12 1530 Specimen Information:Urine Updated:04/02/12 1712 UR SODIUM,RANDOM 46 (L) mmol/L HGB and HCT [[id number]] (Abnormal) Collected:04/02/12 1643 HGB 8.5 (L) g/dL Updated:04/02/12 1705 HCT 25.0 (L) % Hepatitis panel, chronic [[id number]] (Abnormal) Collected:04/02/12 1126 Hep A Total Ab REACTIVE (A) Updated:04/02/12 1644 HEP B SURFACE AG NON REACTIVE HEP B CORE AB,TOTAL NON REACTIVE HEP B SURFACE ANTIBODY <0.50 IV HEPATITIS C NON REACTIVE HEPATITIS INTERP Result: Current or past HAV infection. No serologic evidence of HCV infection or HBV infection or vaccination. Vitamin D,25 hydroxy [[id number]] (Abnormal) Collected:10/04/04 1126 Specimen Information:Blood Updated:04/02/12 1603 VITAMIN D,25 HYDROXY <12 (L) ng/mL RA titer [[id number]] Collected:04/02/121125 Specimen Information:Blood Updated:04/02/12 1555 RA TITER <10 IU/mL CBC w/auto diff (reflex to manual) [[id number]] (Abnormal) Collected:04/02/121125 Specimen Information:Blood Updated:04/02/12 1236 WBC 8.8 K/uL RBC 2.87 (L) M/uL HGB 8.6 (L) g/dL HCT 25.6 (L) % MCV 89.1 fl MCH 30.0 pg MCHC 33.7 g/dL RDW SD 54.3 (H) fl PLT 210 K/uL MPV 6.8 fl DIFF TYPE AUTOMATED NEUTROPHILS 79.1 (H) % LYMPHOCYTES 4.4 (L) % MONOCYTES 6.3 % EOSINOPHILS 10.2 (H) % BASOPHILS 0.0 % NEUTROPHILS ABS 6.9 K/uL LYMPHOCYTES ABS 0.4 (L) K/uL MONOCYTES ABS 0.6 K/uL EOSINOPHILS ABS 0.9 (H) K/uL BASOPHILS ABS 0.0 K/uL HIV rapid [[id number]] Collected:04/02/121125 HIV RAPID NON REACTIVE Updated:04/02/12 1227 Magnesium [[id number]] Collected:04/02/121125 Specimen Information:Blood Updated:04/02/12 1226 MAGNESIUM 2.3 mg/dL Phosphorus [[id number]] (Abnormal) Collected:04/02/121125 Specimen Information:Blood Updated:04/02/12 1226 PHOSPHORUS 11.8 (HH) mg/dL Uric acid [[id number]] Collected:04/02/121125 Specimen Information:Blood Updated:04/02/12 1226 URIC ACID 8.2 mg/dL CPK [[id number]] (Abnormal) Collected:04/02/121125 Specimen Information:Blood Updated:04/02/12 122 CPK 1373 (H) U/L Iron panel [[id number]] (Abnormal) Collected:04/02/121125 Specimen Information:Blood Updated:04/02/12 1226 IRON 55 ug/dL TIBC 144.00 (L) ug/dL IRON % SAT 38 % Ferritin [[id number]] Collected:04/02/121125 Specimen Information:Blood Updated:04/02/12 122 FERRITIN 139 ng/mL C-reactive protein [[id number]] (Abnormal) Collected:04/02/121125 CRP 15.0 (H) mg/dL Updated:04/02/121225 Comprehensive metabolic panel [[id number]] (Abnormal) Collected:04/02/121125 Specimen Information:Blood Updated:04/02/121225 SODIUM 137 mmol/L POTASSIUM 4.9 mmol/L CHLORIDE 107 mmol/L CO2 11 (LL) mmol/L ANION GAP AGAP 23 (H) mmol/L GLUCOSE 107 (H) mg/dL BUN 122 (H) mg/dL CREATININE 14.39 (H) mg/dL BUN/CREAT 9 CALCIUM 6.5 (L) mg/dL TOTAL PROTEIN 6.2 (L) g/dL Albumin 2.2 (L) g/dL GLOBULIN 4.0 g/dL A/G 0.6 (L) TBIL 1.2 mg/dL ALK PHOS 82 U/L AST 38 U/L ALT 28 U/L EGFR 4 (L) mL/min/1.73m2 C3 and C4 complement [[id number]] Collected:04/02/121125 COMPLEMENT C3 94 mg/dL Updated:04/02/121225 COMPLEMENT C4 16.3 mg/dL Sedimentation rate, automated [[id number]] (Abnormal) Collected:04/02/121125 Specimen Information:Blood Updated:04/02/121223 ESR 52 (H) mm/Hr ANCA panel(reflexive) [[id number]] Collected:04/02/121125 Specimen Information:Blood Updated:04/02/121133 Glomerular basement membrane Ab [[id number]] Collected:04/02/121125 Specimen Information:Blood Updated:04/02/12 113 POCT glucose [[id number]] Collected:04/02/12 0125 GLUCOSE,POC SCREEN 67 mg/dL Updated:04/02/12433 POCT glucose [[id number]] (Abnormal) Collected:04/02/12 0214 GLUCOSE,POC SCREEN 110 (H) mg/dL Updated:04/02/12 043 POCT glucose [[id number]] Collected:04/02/12255 GLUCOSE,POC SCREEN 95 mg/dL Updated:04/02/12433 POCT glucose [[id number]] (Abnormal) Collected:04/02/12 040 GLUCOSE,POC SCREEN 102 (H) mg/dL Updated:04/02/12433 POCT glucose [[id number]] (Abnormal) Collected:04/02/12 0031 GLUCOSE,POC SCREEN 29 (LL) mg/dL Updated:04/02/12433 Salicylate (Aspirin) Level [[id number]] (Abnormal) Collected:04/02/12231 Specimen Information:Blood Updated:04/02/12311 SALICYLATE 2.6 (L) mg/dL Urine Drug Screen [[id number]] (Abnormal) Collected:04/02/12228 Specimen Information:Urine Updated:04/02/12250 AMPHETAMINE POSITIVE (A) OPIATES NEGATIVE BARBITUATES NEGATIVE PCP NEGATIVE BENZODIAZEPINE NEGATIVE THC NEGATIVE COCAINE NEGATIVE TRICYCLIC ANTIDEPRESS NEGATIVE ACETAMINOPHEN/PARACET POSITIVE (A) METHAMPHETAMINES POSITIVE (A) METHADONE NEGATIVE Urine Microscopic [[id number]] (Abnormal) Collected:04/02/12228 Specimen Information:Urine Updated:04/02/12250 WBC 6-10 /hpf RBC 16-25 /hpf EPITHELIAL 6-10 /lpf BACTERIA TRACE (A) Mucus, UA 1+ Crystals 3+ /hpf Carbamazepine [[id number]] (Abnormal) Collected:04/02/1239 DATE OF LAST DOSE UNKNOWN Updated:04/02/12229 TIME OF LAST DOSE UNKNOWN CARBAMAZEPINE LEVEL <0.5 (L) ug/mL POC arterial CG4+ [[id number]] (Abnormal) Collected:04/02/12 020 pH, Art 7.148 (LL) Updated:04/02/12211 POC PCO2 23 (L) mmHg POC p02 171 (H) mmHg POC LACTATE 0.6 mmol/L POC HCO3 8 (L) mmol/L POC TCO2 9 (L) mEq/L POC BASE DEFICIT 21 (H) mmol/L POC S02 99 (H) % POC FIO2 32 % Cardiac Panel [[id number]] (Abnormal) Collected:04/02/1239 WBC 9.7 K/uL Updated:04/02/12125 RBC 2.14 (L) M/uL HGB 6.4 (LL) g/dL HCT 19.4 (LL) % MCV 90.3 fl MCH 30.0 pg MCHC 33.2 g/dL RDW SD 56.0 (H) fl PLT 230 K/uL MPV 7.1 fl DIFF TYPE AUTOMATED NEUTROPHILS 79.1 (H) % LYMPHOCYTES 3.7 (L) % MONOCYTES 5.8 % EOSINOPHILS 11.3 (H) % BASOPHILS 0.1 % NEUTROPHILS ABS 7.7 (H) K/uL LYMPHOCYTES ABS 0.4 (L) K/uL MONOCYTES ABS 0.6 K/uL EOSINOPHILS ABS 1.1 (H) K/uL BASOPHILS ABS 0.0 K/uL Platelet Estimate ADEQUATE MORPHOLOGY 2+ SODIUM 135 mmol/L POTASSIUM 5.9 (H) mmol/L CHLORIDE 105 mmol/L CO2 8 (LL) mmol/L ANION GAP AGAP 27 (H) mmol/L GLUCOSE 196 (H) mg/dL BUN 114 (H) mg/dL CREATININE 15.12 (H) mg/dL BUN/CREAT 8 CALCIUM 6.5 (L) mg/dL TOTAL PROTEIN 6.2 (L) g/dL Albumin 2.2 (L) g/dL GLOBULIN 4.0 g/dL A/G 0.6 (L) TBIL 1.3 mg/dL ALK PHOS 88 U/L AST 45 U/L ALT 32 U/L EGFR 4 (L) mL/min/1.73m2 CPK 1632 (H) U/L INR 1.5 APTT 40 (H) seconds MMB 92.1 (H) ng/mL CK-MB Index 5.6 CAROL TARIQ 1965 47 years Male XR CHEST 2 VIEW FRONTAL AND LATERAL 04/02/2012 1:00 PM INDICATION: Shortness of breath COMPARISON: None. TECHNIQUE: Two view chest, PA and lateral views FINDINGS: Mild cardiomegaly is demonstrated. There is no mediastinal widening or shift. The re is no pneumothorax or effusion. Scattered fine reticular markings are seen along the rubi phery of the lungs bilaterally in the lower lobes. The pulmonary vasculature is normal in ca liber. There are no pulmonary nodules. Moderate acromioclavicular osteoarthritis is present. There is mild degenerative disk disease of the thoracic spine. IMPRESSION: 1. Scattered reticular markings in the lower lungs bilaterally which may reflect interstiti al changes versus mild edema. LEM LIST Principal Problem: *Renal failure, acute Active Problems: Rhabdomyolysis Type II or unspecified type diabetes mellitus without mention of complication, not stated as uncontrolled Essential hypertension, benign Amphetamine and other psychostimulant dependence, continuous Hyperkalemia Unspecified asthma Hyperphosphatemia Anemia Acidosis ASSESSMENT & PLAN Acute renal failure - gradually improving with hydration and bicarb drip. Dr. Iain stanley. We are hoping to avoid having to dialyze him. UO is good. Rash - HIV, ANCA, ALLIE, treponema pending. Blood cultures pending. Complement are normal, ES R and CRp are elevated. (+) Eosinophilia. PRN benadryl for itching. Dr Escobar consulted. Anemia s/p tranfusion with 2units pRBC. On PPO. Dr. Lake consulted for EGD once acute issu es have resolved or if there is active GI bleeding. Hgb at 7.8 again today. No active signs of bleeding however will transfuse with 2 more units. If it continues to drop, please call Onelia Lake for scope. Patient advised to DC taking naproxen. Rhabdomyolysis - CPK trending down, cont IVFs. TB workup - CXR negative, AFB culture and smear not yet sent as the patient has been unable to provide a sample DM - SSI for now, A1C pending HTN - stable, lisinopril held. PRN hydralazine Amphetamine use - cessation discussed with the patient Hypothyroidism - start synthroid Asthma - PRN inhalers DVT and GI prophylaxis Code Status: Full Code Adeola Crabtree MD 04/03/[address] - 04/02/2012 10:23 AM PDTFormatting of this note might be different from the origin al. Progress Notes by Erin Angel RD at 04/02/12 1023 Author: Erin Angel RD Service: (none) Author Type: Registered Dietitian Filed: 04/02/12 1026 Date of Service: 04/02/12 1023 Status: Signed Economic Development Coordinator: Erin Angel RD (Product Transfer Pumper) Pt on droplet precautions. Attempted to visit with pt via phone, however he was sleeping so undly, did not awaken with call. BG <29 on admit, 104 this am. No DM meds or insulin order ed at this time. Home meds include Metformin, Januvia, and Glipizide per med rec. Recommend ACHS BG monitoring and check A1c. Will attempt to f/u with pt later today. Erin Angel RD, CD, Inpatient Product Transfer Pumper 04/02/2012 10:26 AM onversion Transaction , Provider Unknown - 04/02/2012 8:45 AM PDT Progress Notes by Gianna Ann RPH at 04/02/12844 Author: Gianna Ann RPH Service: (none) Author Type: Pharmacist Filed: 04/02/12844 Date of Service: 04/02/12844 Status: Signed Economic Development Coordinator: Gianna Ann RPH (Pharmacist) Renal Dosing Monitoring: Carol Potter 47 y.o. male Pharmacy dosing for renal function per Dr. Trujillo Medication(s): Pepcid Plan per protocol: Medication / Dose: Est CrCl ~6.3 ml/min Will change Pepcid to daily dosing for poor renal function Pharmacy will continue monitoring patient for appropriate dosing per renal function. 04/02/2012 8:42 AM Pharmacist: GIANNA ANN OMediAdeola matson MD - 04/02/2012 8:13 AM PDT Progress Notes by Adeola Crabtree MD at 04/02/12812 Author: Adeola Crabtree MD Service: Hospitalist Author Type: Physician Filed: 04/02/12 7867 Date of Service: 04/02/12812 Status: Addendum Economic Development Coordinator: Adeola Crabtree MD (Physician) Related Notes: Original Note by Adeola Crabtree MD (Physician) filed at 04/02/12 1549 47 yo male who presented by ambulance from [facility]. Was there at 04/01 at 2100 due to c hest pain. He was given NTG there which relieved his pain. He was found have a creatinine of 14.2 and was hyperkalemic with a K of 7.3. He was given Ca Gluconate, Insulin, D50, albuter ol, kayexalate, Bicarb. No fluids given. He also has been using methamphetamine on that day which he says he only recently started. The pt does complain of an "itchy rash." The pt's ra sh has been present for the past "4-5 days. And is all over his body. He denies any current chest pain. ER physician has contacted Dr. Timmons who recommends bicarb drip and ER has alread y started RBC transfusion. He reports resolution of chest pain. He does not have any PCP car e prior to this and is basically noncompliant with his medications. Denies nausea, vomiting, SOB, headacge. C/o penile pain post catheterization. Upon discussing with the patient and Dr. Timmons, it seems like the patient had melanotic stoo ls for the past week. He also has been having epistaxis or the past week. He was taking napr oxen 4x a day in the past week as well. He was noted to be "coughing blood" hence the isolat ion and TB work up. The patient states though that he usually feel nauseated and when he gag s, blood comes up. Acute renal failure; hyperkalemia - last known crea in 2010 was1.7. Check BMP. Continue hyd ration and bicarb drip. Ca gluconate, insulin, D50 and kayexalate have been given as well. Onelia Timmons to see the patient today. Anemia - 2units pRBC, recheck CBC. Dr. Lake consulted. NPO now for scope. Rhabdomyolysis from methamphetamine use - IVFs, recheck CPK TB workup - CXR, AFB culture and smear pending Rash - HIV, CRP, ESR, treponema ordered DM - SSI for now HTN - stable, lisinopril held. PRN hydralazine Amphetamine use - cessation discussed with the patient Asthma - PRN inhalers DVT and GI prophylaxis documente d in this encounter Plan of Treatment Not on filedocumented as of this encounter Procedures + +--------+ + + + | Procedure Name | Priori | Date/Time | Associated Diagnosis | Comments | | | ty | | | | + +--------+ + + + | EXTERNAL LAB: OCCULT | Routin | 04/15/2012 | | Results for this | | BLOOD, SCREENING | e | 6:08 AM | | procedure are in the | | | | PDT | | results section. | + +--------+ + + + | CULTURE, BLOOD | Timed | 04/15/2012 | | Results for this | | | | 4:50 AM | | procedure are in the | | | | PDT | | results section. | + +--------+ + + + | EXTERNAL LAB: OCCULT | Routin | 04/14/2012 | | Results for this | | BLOOD, SCREENING | e | 8:50 PM | | procedure are in the | | | | PDT | | results section. | + +--------+ + + + | CT UPPER EXTREMITY | Routin | 04/13/2012 | | Results for this | | LEFT W CONTRAST | e | 9:15 PM | | procedure are in the | | | | PDT | | results section. | + +--------+ + + + | CT ABDOMEN PELVIS W | Routin | 04/13/2012 | | Results for this | | CONTRAST | e | 9:15 PM | | procedure are in the | | | | PDT | | results section. | + +--------+ + + + | ECHO COMPLETE | Routin | 04/13/2012 | | Results for this | | | e | 3:50 PM | | procedure are in the | | | | PDT | | results section. | + +--------+ + + + | CULTURE, BLOOD, 2ND | Timed | 04/13/2012 | | Results for this | | SPECIMEN (NON-ORD) | | 11:15 AM | | procedure are in the | | | | PDT | | results section. | + +--------+ + + + | CULTURE, BLOOD | Timed | 04/13/2012 | | Results for this | | | | 11:09 AM | | procedure are in the | | | | PDT | | results section. | + +--------+ + + + | CULTURE, BLOOD, 2ND | Timed | 04/12/2012 | | Results for this | | SPECIMEN (NON-ORD) | | 12:31 PM | | procedure are in the | | | | PDT | | results section. | + +--------+ + + + | CULTURE, BLOOD | Timed | 04/12/2012 | | Results for this | | | | 12:00 PM | | procedure are in the | | | | PDT | | results section. | + +--------+ + + + | VAS UPPER EXTREMITY | Routin | 04/11/2012 | | Results for this | | VENOUS LEFT | e | 6:41 PM | | procedure are in the | | | | PDT | | results section. | + +--------+ + + + | CULTURE, BLOOD | Timed | 04/11/2012 | | Results for this | | | | 2:17 AM | | procedure are in the | | | | PDT | | results section. | + +--------+ + + + | VAS UPPER EXTREMITY | Routin | 04/10/2012 | | Results for this | | VENOUS RIGHT | e | 10:48 PM | | procedure are in the | | | | PDT | | results section. | + +--------+ + + + | HISTORICAL | Timed | 04/10/2012 | | Results for this | | MICROBIOLOGY RESULT | | 7:05 PM | | procedure are in the | | | | PDT | | results section. | + +--------+ + + + | IR PLACEMENT | Routin | 04/10/2012 | | Results for this | | TUNNELED CENTRAL | e | 3:56 PM | | procedure are in the | | VENOUS CATHETER > 5 | | PDT | | results section. | | YEARS | | | | | + +--------+ + + + | US GUIDED VASCULAR | Routin | 04/10/2012 | | Results for this | | ACCESS | e | 3:56 PM | | procedure are in the | | | | PDT | | results section. | + +--------+ + + + | CULTURE, BLOOD, 2ND | Timed | 04/10/2012 | | Results for this | | SPECIMEN (NON-ORD) | | 3:42 PM | | procedure are in the | | | | PDT | | results section. | + +--------+ + + + | CULTURE, BLOOD | Timed | 04/10/2012 | | Results for this | | | | 3:32 PM | | procedure are in the | | | | PDT | | results section. | + +--------+ + + + | CT GUIDED BIOPSY | Routin | 04/10/2012 | | Results for this | | RENAL | e | 11:00 AM | | procedure are in the | | | | PDT | | results section. | + +--------+ + + + | XR CHEST 1 VIEW | Routin | 04/10/2012 | | Results for this | | | e | 8:40 AM | | procedure are in the | | | | PDT | | results section. | + +--------+ + + + | TISSUE REQUEST FOR | Routin | 04/09/2012 | | Results for this | | PATHOLOGY (NON-ORD) | e | 12:00 AM | | procedure are in the | | | | PDT | | results section. | + +--------+ + + + | CULTURE, URINE | Timed | 04/07/2012 | | Results for this | | | | 1:36 PM | | procedure are in the | | | | PDT | | results section. | + +--------+ + + + | CT CHEST WO CONTRAST | Routin | 04/06/2012 | | Results for this | | | e | 6:01 PM | | procedure are in the | | | | PDT | | results section. | + +--------+ + + + | CULTURE, URINE | Routin | 04/06/2012 | | Results for this | | | e | 12:22 AM | | procedure are in the | | | | PDT | | results section. | + +--------+ + + + | CULTURE, AFB, AND | Timed | 04/03/2012 | | Results for this | | SMEAR | | 2:15 PM | | procedure are in the | | | | PDT | | results section. | + +--------+ + + + | CULTURE, BLOOD, 2ND | Timed | 04/03/2012 | | Results for this | | SPECIMEN (NON-ORD) | | 2:15 PM | | procedure are in the | | | | PDT | | results section. | + +--------+ + + + | CULTURE, BLOOD | Timed | 04/03/2012 | | Results for this | | | | 2:15 PM | | procedure are in the | | | | PDT | | results section. | + +--------+ + + + | XR CHEST 2 VIEWS | Routin | 04/02/2012 | | Results for this | | | e | 1:04 PM | | procedure are in the | | | | PDT | | results section. | + +--------+ + + + | CULTURE, URINE | STAT | 04/02/2012 | | Results for this | | | | 2:29 AM | | procedure are in the | | | | PDT | | results section. | + +--------+ + + + documented in this encounter Results External Lab: Occult Blood, Screening (04/15/2012 6:08 AM PDT) + + | Specimen | + + | Stool specimen | | (specimen) | + + + + + | Narrative | Performed At | + + + | Fecal Occult Blood POSITIVE Abnormal | EXTERNAL LAB | | Testing performed at [facility];[address] [place] [address];[place] [address] | | + + + + +---------+ + + | Performing | Address | City/State/Zipcode | Phone Number | | Organization | | | | + +---------+ + + | EXTERNAL LAB | | | | + +---------+ + + Culture, Blood (04/15/2012 4:50 AM PDT) + + | Specimen | + + | Blood specimen | | (specimen) | + + + + + | Narrative | Performed At | + + + | Specimen Description BLOOD | EXTERNAL LAB | | Testing performed at [facility];[address] | [facility];[place] [address] SPECIAL REQUESTS | | | LEFT HAND | | | Testing performed at [facility];[address] [facility];[place] [address] CULTURE | | | NO GROWTH IN 5 DAYS. | | | Testing performed at [facility];[address] | | [facility];[place] [address] REPORT STATUS | | | 04/20/2012 FINAL | | + + + + +---------+ + + | Performing | Address | City/State/Zipcode | Phone Number | | Organization | | | | + +---------+ + + | EXTERNAL LAB | | | | + +---------+ + + External Lab: Occult Blood, Screening (04/14/2012 8:50 PM PDT) + + | Specimen | + + | Stool specimen | | (specimen) | + + + + + | Narrative | Performed At | + + + | Fecal Occult Blood POSITIVE Abnormal | EXTERNAL LAB | | Testing performed at [facility];[address] [place] [address];[place] [address] | | + + + + +---------+ + + | Performing | Address | City/State/Zipcode | Phone Number | | Organization | | | | + +---------+ + + | EXTERNAL LAB | | | | + +---------+ + + CT Upper Extremity w Contrast Left (04/13/2012 9:15 PM PDT) + + | Specimen | + + | | + + + + + | Narrative | Performed At | + + + | CT LEFT FOREARM WITH CONTRAST 04/13/2012 HISTORY: Hand swelling. | | | Evaluate for abscess. COMPARISON: None. TECHNIQUE: CT of the | | | left forearm from elbow to hand using 100 mL Isovue-300 IV including | | | multiplanar reformats. FINDINGS: There is subcutaneous edema of | | | the dorsal surface of the hand and wrist. There is no organized | | | abscess within the wrist or hand. No obvious bony destruction. | | | There is an IV line in the radial side of the forearm. There is | | | circumferential subcutaneous edema within the forearm. The muscular | | | compartments appear normal in attenuation without area of mild | | | necrosis, hypoenhancement or intramuscular abscess. No intramuscular | | | hematoma is visualized. No joint effusion at the elbow is visualized. | | | There our arterial vascular calcifications. No fracture seen. | | | IMPRESSION: 1. Diffuse subcutaneous edema of the forearm and dorsal | | | subcutaneous edema of the hand and wrist. 2. No subcutaneous fluid | | | collection. 3. No intramuscular fluid collection or obvious muscular | | | edema or hemorrhage. Electronically signed by Kev Fuentes, | | | on Apr 14 2012 2:37AM | | + + + + -------+ | Procedure Note | + -------+ | Khalif Palm Conversion - 02/14/2019 4:[address] FOREARM WITH CONTRAST | | 04/13/2012 HISTORY: Hand swelling. Evaluate for abscess. COMPARISON: None. TECHNIQUE: CT | | of the left forearm from elbow to hand using 100 mL Isovue-300 IV including multiplanar | | reformats. FINDINGS:There is subcutaneous edema of the dorsal surface of the hand and | | wrist. There is no organized abscess within the wrist or hand. No obvious bony | | destruction. There is an IV line in the radial side of the forearm. There is | | circumferential subcutaneous edema within the forearm. The muscular compartments appear | | normal in attenuation without area of mild necrosis, hypoenhancement or intramuscular | | abscess. No intramuscular hematoma is visualized. No joint effusion at the elbow is | | visualized. There our arterial vascular calcifications. No fracture seen. IMPRESSION:1. | | Diffuse subcutaneous edema of the forearm and dorsal subcutaneous edema of the hand and | | wrist.2. No subcutaneous fluid collection.3. No intramuscular fluid collection or | | obvious muscular edema or hemorrhage. Electronically signed by Kev Fuentes MD | | on Apr 14 2012 2:37AM | |IMPRESSION: | |1. Diffuse subcutaneous edema of the forearm and dorsal subcutaneous edema of the hand and wrist. | |2. No subcutaneous fluid collection. | |3. No intramuscular fluid collection or obvious muscular edema or hemorrhage. | | | | Electronically signed by Kev Fuentes MD on Apr 14 2012 2:37AM | + -------+ CT Abdomen Pelvis w Contrast (04/13/2012 9:15 PM PDT) + + | Specimen | + + | | + + + + + | Narrative | Performed At | + + + | CT ABDOMEN AND PELVIS WITH CONTRAST 04/13/2012 HISTORY: Abdomen | | | pain. TECHNIQUE: Scans were obtained through the abdomen and | | | pelvis after 100 mL of Isovue-300 with coronal and sagittal | | | reformations. FINDINGS: There are medium pleural effusions with | | | minor overlying atelectasis in the lung bases. There is also a | | | pericardial effusion. In the abdomen, the liver, spleen, pancreas, | | | adrenals, and kidneys are unremarkable. No gallstones or dilated | | | ducts, noting a contracted gallbladder. No aortic enlargement. No | | | adenopathy. The bowel is unremarkable in the abdomen and pelvis. | | | There is oral contrast in the colon. Normal appendix identified. No | | | free air in the abdomen and pelvis. Trace free fluid. In the | | | pelvis, a Newman catheter drains the bladder. Prostate is not enlarged. | | | Diffuse body wall edema noted. IMPRESSION: 1. Medium pleural | | | effusions with minor overlying atelectasis. 2. Pericardial effusion. | | | 3. Trace ascites. Electronically signed by Favio Archuleta MD on | | | Apr 13 2012 11:20PM | | + + + + + | Procedure Note | + + | Néstor, Rad Conversion - 02/14/2019 4:[address] ABDOMEN AND PELVIS WITH CONTRAST | | 04/13/2012 HISTORY: Abdomen pain. TECHNIQUE: Scans were obtained through the abdomen and | | pelvis after 100 mL of Isovue-300 with coronal and sagittal reformations. FINDINGS: | | There are medium pleural effusions with minor overlying atelectasis in the lung bases. | | There is also a pericardial effusion. In the abdomen, the liver, spleen, pancreas, | | adrenals, and kidneys are unremarkable. No gallstones or dilated ducts, noting a | | contracted gallbladder. No aortic enlargement. No adenopathy. The bowel is unremarkable | | in the abdomen and pelvis. There is oral contrast in the colon. Normal appendix | | identified. No free air in the abdomen and pelvis. Trace free fluid. In the pelvis, a | | Newman catheter drains the bladder. Prostate is not enlarged. Diffuse body wall edema | | noted. IMPRESSION:1. Medium pleural effusions with minor overlying atelectasis.2. | | Pericardial effusion.3. Trace ascites. Electronically signed by Favio Archuleta MD on Mar | | 2011 11:20PM | | | |IMPRESSION: | |1. Medium pleural effusions with minor overlying atelectasis. | |2. Pericardial effusion. | |3. Trace ascites. | | | | Electronically signed by Favio Archuleta MD on Apr 13 2012 11:20PM | + + ECHO Complete (04/13/2012 3:50 PM PDT) + + | Specimen | + + | | + + + + + | Narrative | Performed At | + + + | Patient Name: CAROL POTTER Date of : 1965 | | | Performing Physician: Giovany Everett MD | | | | | | ------REPORT ADDENDED------ INDICATIONS R/O | | | ENDOCARDITIS CONCLUSIONS 1. Mild Degenerative | | | Valvular Heart Disease. Aortic valve mildly sclerotic, no /AI. | | | Mitral, Tricuspid, and Pulmonic valves grossly NML. Mild MR, mild | | | TR. 2. Mild concentric LVH, systolic function low NML, Grade II | | | diastolic abnormality, LVEF 50-55%. RV mildly enlarged, systolic | | | function preserved. Moderate LAE. Mild GREGORIO. 3. Small Pericardial | | | effusion, no tamponade. 4. No obvious masses or vegetation, however, | | | cannot R/O endocarditis. FINDINGS -------- [no group]: | | | Degenerative Valvular Heart Disease. ECG rhythm: Sinus rhythm. | | | Study: A 2-dimensional transthoracic echocardiogram with m-mode, | | | spectral and color flow Doppler was perfomed. Study: This was a | | | technically adequate study. Left Ventricle: Overall left ventricular | | | systolic function is low-normal with, an EF between 50 - 55 %. Left | | | Ventricle: The left ventricle cavity size is normal. Left Ventricle: | | | There is mild concentric left ventricular hypertrophy. Left | | | Ventricle: Pseudonormal LV diastolic filling pattern, consistent with | | | elevated LA pressure and moderate dysfunction (Grade II). Right | | | Ventricle: The right ventricle is mildly enlarged measuring between | | | 3.4 - 3.7 cm. Right Ventricle: The right ventricular systolic | | | function is normal. Left Atrium: The left atrium is moderately | | | dilated. Right Atrium: The right atrium is mildly enlarged. Aortic | | | Valve: The aortic valve is trileaflet, and appears anatomically | | | normal. No aortic stenosis or regurgitation. Mitral Valve: The mitral | | | valve is normal. Mitral Valve: Mild mitral regurgitation is present. | | | Tricuspid Valve: The tricuspid valve appears structurally normal. | | | Tricuspid Valve: Mild tricuspid regurgitation present. Tricuspid | | | Valve: Right ventricular systolic pressure (pulmonary artery systolic | | | pressure) is normal at < 35 mmHg. Pulmonic Valve: Pulmonic valve | | | appears structurally normal. Pulmonic Valve: A wave normal. | | | Pericardium: There is a small, generalized pericardial effusion | | | present. IVC/Hepatic Veins: The IVC was not well visualized. | | | Thrombus: No clot visualized Thrombus: No vegetation visualized. | | | MEASUREMENTS IVC: 2.12 cm LA Major: 5.94 cm | | | EDV(Teich): 145.85 ml IVSd: 1.32 cm LVIDd: 5.47 cm LVPWd: | | | 1.31 cm LVOT Diam: 2.22 cm %FS: 22.69 % EF(Teich): | | | 45.15 % ESV(Teich): 79.99 ml IVSs: 1.63 cm LVIDs: 4.23 cm | | | LVPWs: 1.54 cm SV(Teich): 65.85 ml RA Major: 5.99 cm | | | RVIDd: 3.56 cm LVEF MOD A2C: 55.80 % SV MOD A2C: 76.21 ml | | | LVEF MOD A4C: 53.02 % SV MOD A4C: 75.12 ml EF Biplane: | | | 55.74 % LVEDV MOD BP: 143.57 ml LVESV MOD BP: 63.54 ml LVEDV | | | MOD A2C: 136.57 ml LVLd A2C: 8.80 cm LVEDV MOD A4C: 141.69 | | | ml LVLd A4C: 8.22 cm LVESV MOD A2C: 60.35 ml LVLs A2C: | | | 6.90 cm LVESV MOD A4C: 66.56 ml LVLs A4C: 6.80 cm LAESV(A-L): | | | 83.86 ml LAESV Index (A-L): 40.32 ml/m2 LAAs A2C: 23.95 | | | cm2 LAESV A-L A2C: 79.86 ml LALs A2C: 6.09 cm LAAs A4C: | | | 25.15 cm2 LAESV A-L A4C: 85.78 ml LALs A4C: 6.26 cm Ao Diam: | | | 3.79 cm AV Cusp: 2.35 cm LA Diam: 5.00 cm LA/Ao: 1.31 | | | %FS: 27.35 % EDV(Teich): 166.76 ml EF(Teich): 52.45 % | | | ESV(Teich): 79.28 ml IVSd: 1.28 cm IVSs: 1.43 cm LVIDd: | | | 5.80 cm LVIDs: 4.21 cm LVPWd: 1.38 cm LVPWs: 1.48 cm | | | SV(Teich): 87.47 ml D-E Excursion: 2.04 cm E-F [place]: 0.07 | | | m/s EPSS: 1.21 cm HR: 66.51 BPM AV maxP.54 mmHg AV | | | meanP.02 mmHg AV Vmax: 1.46 m/s AV Vmean: 1.07 m/s AV | | | VTI: 30.65 cm JACKIE Vmax: 3.14 cm2 JACKIE (VTI): 3.18 cm2 LVCI | | | Dopp: 3.15 l/minm2 LVCO Dopp: 6.56 l/min HR: 67.34 BPM | | | LVOT maxP.56 mmHg LVOT meanP.80 mmHg LVSI Dopp: | | | 46.89 ml/m2 LVSV Dopp: 97.54 ml LVOT Vmax: 1.17 m/s LVOT | | | Vmean: 0.77 m/s LVOT VTI: 25.05 cm MCO: 384.47 ms MR | | | maxP.53 mmHg MR Vmax: 3.44 m/s MV A Lenard: 0.65 m/s MV | | | DecT: 160.22 ms MV E Lenard: 1.28 m/s MV E/A Ratio: 1.95 MV | | | PHT: 41.01 ms MVA By PHT: 5.36 cm2 MV A Dur: 121.99 ms MV | | | maxP.92 mmHg MV meanP.47 mmHg MV Vmax: 1.31 m/s MV | | | Vmean: 0.50 m/s MV VTI: 25.98 cm MVA (VTI): 3.75 cm2 | | | Septal e': 0.06 m/s Septal E/e': 19.82 Lateral e': 0.06 m/s | | | Lateral E/e': 20.69 P Vein A: 0.27 m/s P Vein A Dur: | | | 96.11 ms P Vein D: 0.85 m/s P Vein S/D Ratio: 0.48 P Vein S: | | | 0.41 m/s HR: 70.56 BPM PV maxP.77 mmHg PV meanPG: | | | 1.61 mmHg PV Vmax: 0.83 m/s PV Vmean: 0.60 m/s PV VTI: | | | 18.69 cm RAP: 5 mmHg RVSP: 31.43 mmHg TR maxP.43 mmHg | | | TR Vmax: 2.57 m/s TV A Lenard: 0.53 m/s TV Dec [place]: 6.33 | | | m/s2 TV Dec Time: 150.03 ms TV E Lenard: 0.94 m/s TV E/A Ratio: | | | 1.76 Healthcare Business Analyst: KVW Authenticated by: Giovany Everett MD | | | Report Date/Time: 04-13-2012 17:46:53 | | + + + + + | Procedure Note | + + | Néstor, Rad Conversion - 02/14/2019 4:18 AM PDT Patient Name: Mohinder POTTER of | | : 1965 Performing Physician: Giovany Everett | | ------REPORT | | ADDENDED------INDICATIONS R/O ENDOCARDITIS CONCLUSIONS 1. Mild | | Degenerative Valvular Heart Disease. Aortic valve mildly sclerotic, no /AI. Mitral, | | Tricuspid, and Pulmonic valves grossly NML. Mild MR, mild TR. 2. Mild concentric LVH, | | systolic function low NML, Grade II diastolic abnormality, LVEF 50-55%. RV mildly | | enlarged, systolic function preserved. Moderate LAE. Mild GREGORIO. 3. Small Pericardial | | effusion, no tamponade. 4. No obvious masses or vegetation, however, cannot R/O | | endocarditis. FINDINGS--------[no group]: Degenerative Valvular Heart Disease.ECG | | rhythm: Sinus rhythm.Study: A 2-dimensional transthoracic echocardiogram with m-mode, | | spectral and color flow Doppler was perfomed.Study: This was a technically adequate | | study.Left Ventricle: Overall left ventricular systolic function is low-normal with, an | | EF between 50 - 55 %.Left Ventricle: The left ventricle cavity size is normal.Left | | Ventricle: There is mild concentric left ventricular hypertrophy.Left Ventricle: | | Pseudonormal LV diastolic filling pattern, consistent with elevated LA pressure and | | moderate dysfunction (Grade II).Right Ventricle: The right ventricle is mildly enlarged | | measuring between 3.4 - 3.7 cm.Right Ventricle: The right ventricular systolic function | | is normal.Left Atrium: The left atrium is moderately dilated.Right Atrium: The right | | atrium is mildly enlarged.Aortic Valve: The aortic valve is trileaflet, and appears | | anatomically normal. No aortic stenosis or regurgitation.Mitral Valve: The mitral valve | | is normal.Mitral Valve: Mild mitral regurgitation is present.Tricuspid Valve: The | | tricuspid valve appears structurally normal.Tricuspid Valve: Mild tricuspid | | regurgitation present.Tricuspid Valve: Right ventricular systolic pressure (pulmonary | | artery systolic pressure) is normal at < 35 mmHg.Pulmonic Valve: Pulmonic valve appears | | structurally normal.Pulmonic Valve: A wave normal.Pericardium: There is a small, | | generalized pericardial effusion present.IVC/Hepatic Veins: The IVC was not well | | visualized.Thrombus: No clot visualizedThrombus: No vegetation visualized. | | MEASUREMENTS IVC: 2.12 cmLA Major: 5.94 cmEDV(Teich): 145.85 mlIVSd: | | 1.32 cmLVIDd: 5.47 cmLVPWd: 1.31 cmLVOT Diam: 2.22 cm%FS: 22.69 %EF(Teich): | | 45.15 %ESV(Teich): 79.99 mlIVSs: 1.63 cmLVIDs: 4.23 cmLVPWs: 1.54 cmSV(Teich): | | 65.85 mlRA Major: 5.99 cmRVIDd: 3.56 cmLVEF MOD A2C: 55.80 %SV MOD A2C: 76.21 | | mlLVEF MOD A4C: 53.02 %SV MOD A4C: 75.12 mlEF Biplane: 55.74 %LVEDV MOD BP: | | 143.57 mlLVESV MOD BP: 63.54 mlLVEDV MOD A2C: 136.57 mlLVLd A2C: 8.80 cmLVEDV MOD | | A4C: 141.69 mlLVLd A4C: 8.22 cmLVESV MOD A2C: 60.35 mlLVLs A2C: 6.90 cmLVESV MOD | | A4C: 66.56 mlLVLs A4C: 6.80 cmLAESV(A-L): 83.86 mlLAESV Index (A-L): 40.32 | | ml/m2LAAs A2C: 23.95 [id number] A-L A2C: 79.86 mlLALs A2C: 6.09 cmLAAs A4C: 25.15 | | [id number] A-L A4C: 85.78 mlLALs A4C: 6.26 cmAo Diam: 3.79 cmAV Cusp: 2.35 cmLA | | Diam: 5.00 cmLA/Ao: 1.31%FS: 27.35 %EDV(Teich): 166.76 mlEF(Teich): 52.45 | | %ESV(Teich): 79.28 mlIVSd: 1.28 cmIVSs: 1.43 cmLVIDd: 5.80 cmLVIDs: 4.21 | | cmLVPWd: 1.38 cmLVPWs: 1.48 cmSV(Teich): 87.47 mlD-E Excursion: 2.04 cmE-F | | [place]: 0.07 m/sEPSS: 1.21 cmHR: 66.51 BPMAV maxP.54 mmHgAV meanP.02 | | mmHgAV Vmax: 1.46 m/[place]uy[place] Vmean: 1.07 m/[place] VTI: 30.65 cmAVA Vmax: 3.14 cm2AVA | | (VTI): 3.18 [id number] Dopp: 3.15 l/[id number] Dopp: 6.56 l/minHR: 67.34 BPMLVOT | | maxP.56 mmHgLVOT meanP.80 mmHgLVSI Dopp: 46.89 ml/m2LVSV Dopp: 97.54 | | mlLVOT Vmax: 1.17 m/sLVOT Vmean: 0.77 m/sLVOT VTI: 25.05 cmMCO: 384.47 msMR | | maxP.53 mmHgMR Vmax: 3.44 m/sMV A Lenard: 0.65 m/sMV DecT: 160.22 msMV E Lenard: | | 1.28 m/sMV E/A Ratio: 1.95MV PHT: 41.01 msMVA By PHT: 5.36 cm2MV A Dur: 121.99 | | msMV maxP.92 mmHgMV meanP.47 mmHgMV Vmax: 1.31 m/sMV Vmean: 0.50 m/sMV | | VTI: 25.98 cmMVA (VTI): 3.75 vd6Ojuddy e': 0.06 m/sSeptal E/e': 19.82Lateral e': | | 0.06 m/sLateral E/e': 20.69P Vein A: 0.27 m/sP Vein A Dur: 96.11 msP Vein D: | | 0.85 m/sP Vein S/D Ratio: 0.48P Vein S: 0.41 m/sHR: 70.56 BPMPV maxP.77 | | mmHgPV meanP.61 mmHgPV Vmax: 0.83 m/sPV Vmean: 0.60 m/sPV VTI: 18.69 cmRAP: | | 5 mmHgRVSP: 31.43 mmHgTR maxP.43 mmHgTR Vmax: 2.57 m/sTV A Lenard: 0.53 | | m/sTV Dec [place]: 6.33 m/s2TV Dec Time: 150.03 msTV E Lenard: 0.94 m/sTV E/A Ratio: | | 1.76 Healthcare Business Analyst: KVWAuthenticated by: Giovany Everett MDReport Date/Time: 04-13-2012 | | 17:46:53 | |EF(Teich): 45.15 % | |ESV(Teich): 79.99 ml | |IVSs: 1.63 cm | |LVIDs: 4.23 cm | |LVPWs: 1.54 cm | |SV(Teich): 65.85 ml | |RA Major: 5.99 cm | |RVIDd: 3.56 cm | |LVEF MOD A2C: 55.80 % | |SV MOD A2C: 76.21 ml | |LVEF MOD A4C: 53.02 % | |SV MOD A4C: 75.12 ml | |EF Biplane: 55.74 % | |LVEDV MOD BP: 143.57 ml | |LVESV MOD BP: 63.54 ml | |LVEDV MOD A2C: 136.57 ml | |LVLd A2C: 8.80 cm | |LVEDV MOD A4C: 141.69 ml | |LVLd A4C: 8.22 cm | |LVESV MOD A2C: 60.35 ml | |LVLs A2C: 6.90 cm | |LVESV MOD A4C: 66.56 ml | |LVLs A4C: 6.80 cm | |LAESV(A-L): 83.86 ml | |LAESV Index (A-L): 40.32 ml/m2 | |LAAs A2C: 23.95 cm2 | |LAESV A-L A2C: 79.86 ml | |LALs A2C: 6.09 cm | |LAAs A4C: 25.15 cm2 | |LAESV A-L A4C: 85.78 ml | |LALs A4C: 6.26 cm | |Ao Diam: 3.79 cm | |AV Cusp: 2.35 cm | |LA Diam: 5.00 cm | |LA/Ao: 1.31 | |%FS: 27.35 % | |EDV(Teich): 166.76 ml | |EF(Teich): 52.45 % | |ESV(Teich): 79.28 ml | |IVSd: 1.28 cm | |IVSs: 1.43 cm | |LVIDd: 5.80 cm | |LVIDs: 4.21 cm | |LVPWd: 1.38 cm | |LVPWs: 1.48 cm | |SV(Teich): 87.47 ml | |D-E Excursion: 2.04 cm | |E-F [place]: 0.07 m/s | |EPSS: 1.21 cm | |HR: 66.51 BPM | |AV maxP.54 mmHg | |AV meanP.02 mmHg | |AV Vmax: 1.46 m/s | |AV Vmean: 1.07 m/s | |AV VTI: 30.65 cm | |JACKIE Vmax: 3.14 cm2 | |JACKIE (VTI): 3.18 cm2 | |LVCI Dopp: 3.15 l/minm2 | |LVCO Dopp: 6.56 l/min | |HR: 67.34 BPM | |LVOT maxP.56 mmHg | |LVOT meanP.80 mmHg | |LVSI Dopp: 46.89 ml/m2 | |LVSV Dopp: 97.54 ml | |LVOT Vmax: 1.17 m/s | |LVOT Vmean: 0.77 m/s | |LVOT VTI: 25.05 cm | |MCO: 384.47 ms | |MR maxP.53 mmHg | |MR Vmax: 3.44 m/s | |MV A Lenard: 0.65 m/s | |MV DecT: 160.22 ms | |MV E Lenard: 1.28 m/s | |MV E/A Ratio: 1.95 | |MV PHT: 41.01 ms | |MVA By PHT: 5.36 cm2 | |MV A Dur: 121.99 ms | |MV maxP.92 mmHg | |MV meanP.47 mmHg | |MV Vmax: 1.31 m/s | |MV Vmean: 0.50 m/s | |MV VTI: 25.98 cm | |MVA (VTI): 3.75 cm2 | |Septal e': 0.06 m/s | |Septal E/e': 19.82 | |Lateral e': 0.06 m/s | |Lateral E/e': 20.69 | |P Vein A: 0.27 m/s | |P Vein A Dur: 96.11 ms | |P Vein D: 0.85 m/s | |P Vein S/D Ratio: 0.48 | |P Vein S: 0.41 m/s | |HR: 70.56 BPM | |PV maxP.77 mmHg | |PV meanP.61 mmHg | |PV Vmax: 0.83 m/s | |PV Vmean: 0.60 m/s | |PV VTI: 18.69 cm | |RAP: 5 mmHg | |RVSP: 31.43 mmHg | |TR maxP.43 mmHg | |TR Vmax: 2.57 m/s | |TV A Lenard: 0.53 m/s | |TV Dec [place]: 6.33 m/s2 | |TV Dec Time: 150.03 ms | |TV E Lenard: 0.94 m/s | |TV E/A Ratio: 1.76 | | | |Healthcare Business Analyst: KVW | |Authenticated by: Giovany Everett MD | |Report Date/Time: 04-13-2012 17:46:53 | + + Culture, Blood, 2nd Specimen (04/13/2012 11:15 AM PDT) + + | Specimen | + + | Blood specimen | | (specimen) | + + + + + | Narrative | Performed At | + + + | Specimen Description BLOOD, PERIPHERAL DRAW | EXTERNAL LAB | | Testing performed | | | at [facility];[address] [place] [address];[place] [address] SPECIAL REQUESTS | | | L WRIST | | | Testing performed at [facility];[address] [place] [address];[place] [address] | | | CULTURE NO GROWTH IN 5 DAYS. | | | Testing performed | | | at [facility];[address] [place] [address];[place] [address] REPORT STATUS | | | 04/19/2012 FINAL | | + + + + +---------+ + + | Performing | Address | City/State/Zipcode | Phone Number | | Organization | | | | + +---------+ + + | EXTERNAL LAB | | | | + +---------+ + + Culture, Blood (04/13/2012 11:09 AM PDT) + + | Specimen | + + | Blood specimen | | (specimen) | + + + + + | Narrative | Performed At | + + + | Specimen Description BLOOD, PERIPHERAL DRAW | EXTERNAL LAB | | Testing performed | | | at [facility];[address] [place] [address];[place] [address] SPECIAL REQUESTS | | | L ARM | | | Testing performed at [facility];[address] [place] [address];[place] [address] | | | CULTURE NO GROWTH IN 5 DAYS. | | | Testing | | | performed at [facility];[address] [facility];[place] [address] REPORT STATUS | | | 04/19/2012 FINAL | | + + + + +---------+ + + | Performing | Address | City/State/Zipcode | Phone Number | | Organization | | | | + +---------+ + + | EXTERNAL LAB | | | | + +---------+ + + Culture, Blood, 2nd Specimen (04/12/2012 12:31 PM PDT) + + | Specimen | + + | Blood specimen | | (specimen) | + + + + + | Narrative | Performed At | + + + | Specimen Description BLOOD, PERIPHERAL DRAW | EXTERNAL LAB | | Testing performed | | | at [facility];[address] [place] [address];[place] [address] SPECIAL REQUESTS | | | L WRIST | | | Testing performed at [facility];[address] [place] [address];[place] [address] | | | GRAM STAIN GRAM POSITIVE COCCI | | | SEEN ON GRAM STAIN FROM AEROBIC BOTTLE SMEAR RESULTS CALLED TO AND | | | READ BACK BY: SOULEYMANE Levine IN 4RP AT 0732 ON [id number] BY ELISK | | | GRAM POSITIVE COCCI IN | | | CLUSTERS CALLED | | | RESULTS TO BEST Tan ON 4RP AT 1140 ON 04/14/12 [facility] RESULTS REPEATED | | | Testing performed | | | at [facility];[address] [place] [address];[place] [address] CULTURE | | | STAPHYLOCOCCUS AUREUSAbnormal | | | GROWTH IN TWO OF TWO BOTTLESAbnormal | | | TIME TO | | | DETECTION: 0.71 DAYS | | | Testing performed at [facility], [address] [place], [place] | | | [id number] REPORT STATUS 04/15/2012 | | | FINAL Organism STAPHYLOCOCCUS | | | AUREUS Suscepibility for - STAPHYLOCOCCUS AUREUS Gentamicin | [...] | + +---------+ + + Culture, Blood (04/12/2012 12:00 PM PDT) + + | Specimen | + + | Blood specimen | | (specimen) | + + + + + | Narrative | Performed At | + + + | Specimen Description BLOOD, LINE DRAW | EXTERNAL LAB | | Testing performed at | | | [facility];[address] [place] [address];[place] [address] SPECIAL REQUESTS | | | ART | | | Testing performed at [facility];[address] [place] [address];[place] [address] | | | GRAM STAIN GRAM POSITIVE COCCI | | | SEEN ON GRAM STAIN FROM AEROBIC BOTTLE SMEAR RESULTS CALLED TO AND | | | READ BACK BY: DEIDRE Mccullough IN [facility] AT 0611 ON [id number] BY GEM | | | Testing performed at [facility] | | | [facility];[place] [address] CULTURE | | | STAPHYLOCOCCUS AUREUSAbnormal | | | GROWTH IN ONE OF TWO BOTTLESAbnormal | | | TIME TO DETECTION: 0.65 | | | DAYS Testing | | | performed at [facility], [address] [place] [address] | | | REPORT STATUS 04/17/2012 FINAL | | | Organism STAPHYLOCOCCUS AUREUS [...] +---------+ + + VAS Upper Extremity Venous Left (04/11/2012 6:41 PM PDT) + + | Specimen | + + | | + + + + + | Narrative | Performed At | + + + | CAROL POTTER US DOPPLER VENOUS ARM LEFT 04/11/2012 6:30 PM | | | HISTORY: 47 years. Male. Left hand pain and swelling. | | | Thrombosis of the right cephalic vein seen on Doppler evaluation of | | | the right upper extremity yesterday. TECHNIQUE: Left upper | | | extremity venous Doppler performed with color Doppler and spectral | | | Doppler waveform analysis. COMPARISON: Right upper extremity | | | venous Doppler exam 04/10/2012 FINDINGS: The left internal | | | jugular, subclavian and axillary veins are patent. Normal | | | compressibility, augmentation of flow, and Doppler flow evident within | | | the venous system of the left upper extremity. No evidence of venous | | | thrombosis. Moderate soft tissue swelling noted in the region of | | | the cephalic vein. IMPRESSION: 1. No evidence of left upper | | | extremity vein thrombosis. | | + + + + + | Procedure Note | + + | Khalif Palm Conversion - 02/14/2019 4:18 AM PDT CAROL CHAPARRO DOPPLER VENOUS ARM | | LEFT04/11/2012 6:30 PM HISTORY:47 years. Male. Left hand pain and swelling. | | Thrombosis of the right cephalic vein seen on Doppler evaluation of the right upper | | extremity yesterday. TECHNIQUE:Left upper extremity venous Doppler performed with color | | Doppler and spectral Doppler waveform analysis. COMPARISON:Right upper extremity venous | | Doppler exam 04/10/2012 FINDINGS:The left internal jugular, subclavian and axillary | | veins are patent. Normal compressibility, augmentation of flow, and Doppler flow evident | | within the venous system of the left upper extremity. No evidence of venous thrombosis. | | Moderate soft tissue swelling noted in the region of the cephalic vein. IMPRESSION:1. | | No evidence of left upper extremity vein thrombosis. | |Right upper extremity venous Doppler exam 04/10/2012 | | | |FINDINGS: | |The left internal jugular, subclavian and axillary veins are patent. Normal compressibility , augmentation of flow, and Doppler flow evident within the venous system of the left upper extremity. No evidence of venous thrombosis. Moderate soft tissue | |swelling noted in the region of the cephalic vein. | | | |IMPRESSION: | |1. No evidence of left upper extremity vein thrombosis. | | | | | + + Culture, Blood (04/11/2012 2:17 AM PDT) + + | Specimen | + + | Blood specimen | | (specimen) | + + + + + | Narrative | Performed At | + + + | Specimen Description BLOOD, PERIPHERAL DRAW | EXTERNAL LAB | | Testing performed | | | at [facility];[address] [place] [address];[place] [address] SPECIAL REQUESTS | | | RHAND | | | Testing performed at [facility];[address] [place] [address];[place] [address] | | | GRAM STAIN GRAM POSITIVE COCCI IN | | | CLUSTERS SEEN IN AEROBIC BOTTLE SMEAR RESULTS CALLED TO AND READ BACK | | | BY: DAVID Díaz/[facility] 192 JCMAbnormal | | | GRAM POSITIVE COCCI IN CLUSTERS SEEN ON SMEAR OF | | | ANAEROBIC BOTTLE | | | CALLED TO Comfort/DAVID Díaz ON 04/14/12 AT 0657 BY READBACK | | | Testing performed at [facility] | | | [facility];[place] [address] CULTURE | | | STAPHYLOCOCCUS AUREUSAbnormal | | | TIME TO DETECTION: 0.67 DAYS | | | GROWTH IN TWO OF TWO | | | BOTTLESAbnormal | | | VANCOMYCIN TERRANCE IS LESS THAN OR EQUAL TO 0.5 Mcg/mL | | | Testing performed at [facility], [address] | | | [place] [address] REPORT STATUS | | | 04/15/2012 FINAL Organism | | | STAPHYLOCOCCUS AUREUS Suscepibility for - | | | STAPHYLOCOCCUS AUREUS Gentamicin | | | SUSCEPTIBLESensitive Oxacillin | | | SUSCEPTIBLESensitive Penicillin G RESISTANT | | | Resistant Tetracycline | | | SUSCEPTIBLESensitive Trimethoprim [...] + + VAS Upper Extremity Venous Right (04/10/2012 10:48 PM PDT) + + | Specimen | + + | | + + + + + | Narrative | Performed At | + + + | CAROL JOHN DOPPLER VENOUS ARM RIGHT 04/10/2012 9:15 PM | | | HISTORY: 47 years. Male. Swollen right arm. Assess for venous | | | thrombus. TECHNIQUE: Right upper extremity venous Doppler | | | performed with color Doppler and spectral Doppler waveform analysis. | | | COMPARISON: None. FINDINGS: Noncompressible, partially | | | occlusive thrombus noted throughout the cephalic vein and in the | | | antecubital vein. A 14 x 7 mm lymph node is noted near the right | | | internal jugular vein. The right internal jugular vein itself | | | demonstrates normal flow however compressibility could not be | | | assessed due to the patient unable to tolerate transducer pressure in | | | this region. The right axillary vein, basilic vein and brachial vein | | | are patent. IMPRESSION: 1. Noncompressible partially occlusive | | | thrombus throughout the right cephalic vein and right antecubital | | | vein. Findings were reported to Dr. Siddiqi by telephone at | | | 04/10/2012 11:11 PM. | | + + + + + | Procedure Note | + + | Khalif Palm Conversion - 02/14/2019 4:18 AM PDT [facility] | | RIGHT04/10/2012 9:15 PM HISTORY:47 years. Male. Swollen right arm. Assess for venous | | thrombus. TECHNIQUE:Right upper extremity venous Doppler performed with color Doppler | | and spectral Doppler waveform analysis. COMPARISON:None. FINDINGS:Noncompressible, | | partially occlusive thrombus noted throughout the cephalic vein and in the antecubital | | vein. A 14 x 7 mm lymph node is noted near the right internal jugular vein. The right | | internal jugular vein itself demonstrates normal flow however compressibility could not | | be assessed due to the patient unable to tolerate transducer pressure in this region. | | The right axillary vein, basilic vein and brachial vein are patent. IMPRESSION:1. | | Noncompressible partially occlusive thrombus throughout the right cephalic vein and | | right antecubital vein. Findings were reported to Dr. Siddiqi by telephone at 04/10/2012 | | 11:11 PM. | | | |FINDINGS: | |Noncompressible, partially occlusive thrombus noted throughout the cephalic vein and in the antecubital vein. A 14 x 7 mm lymph node is noted near the right internal jugular vein. T he right internal jugular | |vein itself demonstrates normal flow however | |compressibility could not be assessed due to the patient unable to tolerate transducer pres sure in this region. The right axillary vein, basilic vein and brachial vein are patent. | | | |IMPRESSION: | |1. Noncompressible partially occlusive thrombus throughout the right cephalic vein and rig ht antecubital vein. | | | |Findings were reported to Dr. Siddiqi by telephone at 04/10/2012 11:11 PM. | | | | | + + HISTORICAL MICROBIOLOGY RESULT (04/10/2012 7:05 PM PDT) + + | Specimen | + + | | + + + + + | Narrative | Performed At | + + + | Specimen Description CATHETER TIP | EXTERNAL LAB | | Testing performed at [facility];[address] | | [facility];[place] [address] CULTURE | | | >15 COLONIES STAPHYLOCOCCUS AUREUSAbnormal | | | THIS S. AUREUS IS SUSCEPTIBLE TO | | | METHICILLINAbnormal | | | Testing performed at [facility], [address], [place] | | | [address] REPORT STATUS 04/12/2012 | | | FINAL | | + + + + +---------+ + + | Performing | Address | City/State/Zipcode | Phone Number | | Organization | | | | + +---------+ + + | EXTERNAL LAB | | | | + +---------+ + + IR Placement Tunneled CV Cath (04/10/2012 3:56 PM PDT) + + | Specimen | + + | | + + + + + | Narrative | Performed At | + + + | | | | | | | PREOPERATIVE DIAGNOSIS Acute renal failure with need for dialysis | | | access. POSTOPERATIVE DIAGNOSIS Acute renal failure with need for | | | dialysis access. PROCEDURE Right internal jugular PermCath | | | placement under ultrasound guidance. SURGEON Oskar Meyer MD | | | CERTIFIED WELLNESS PROGRAM MANAGER None. ANESTHESIA Local with moderate sedation. | | | ESTIMATED BLOOD LOSS Minimal. INDICATIONS Mr. Potter is a | | | 47-year-old gentleman who presented to the hospital with acute renal | | | failure. Due to a need for dialysis, vascular surgery service was | | | consulted for placement of a tunneled dialysis catheter. FINDINGS | | | The patient had good withdrawal and flush from all ports, and the tip | | | was found to be at the SVC-atrial junction. DESCRIPTION OF | | | PROCEDURE The patient was properly identified and brought to the | | | catheterization lab. The patient was placed supine on the | | | catheterization lab table and the patient was given moderate | | | sedation. The right neck and right chest were prepped and draped in | | | the usual sterile fashion. Local anesthetic was then given to the | | | right neck and right chest. Under ultrasound guidance, the internal | | | jugular vein was accessed with the micropuncture needle. Once the | | | internal jugular vein was accessed, a subcutaneous tunnel was then | | | created in the right chest and a 23 cm tunneled dialysis catheter was | | | then placed through the subcutaneous tunnel out the right neck. Next | | | a stiff guidewire was passed into the inferior vena cava and serial | | | dilators were used to dilate the tract and an introducer was placed. | | | Using the introducer, the dialysis catheter was then placed into the | | | internal jugular vein with the tip ending in the superior vena | | | cava-atrial junction. The patient tolerated the procedure well. There | | | was good withdrawal and flush from all ports, and the ports were | | | then instilled with 1.6 mL of concentrated heparin for each port. The | | | deep dermal tissue was then closed with 3-0 Vicryl and the skin was | | | then closed with Dermabond. The patient tolerated the procedure well | | | and was taken back to the [facility] in stable condition. There were no | | | apparent complications. Read by OSKAR MEYER MD 04/10/2012 04:13 P | | | | | + + + + + | Procedure Note | + + | Khalif Palm Conversion - 02/14/2019 4:18 AM PDT | | | | PREOPERATIVE DIAGNOSIS | | Acute renal failure with need for dialysis access. | | | | POSTOPERATIVE DIAGNOSIS | | Acute renal failure with need for dialysis access. | | | | PROCEDURE | | Right internal jugular PermCath placement under ultrasound guidance. | | | | SURGEON | | Oskar Meyer MD | | | | CERTIFIED WELLNESS PROGRAM MANAGER | | None. | | | | ANESTHESIA | | Local with moderate sedation. | | | | ESTIMATED BLOOD LOSS | | Minimal. | | | | INDICATIONS | | Mr. Potter is a 47-year-old gentleman who presented to the hospital with | | acute renal failure. Due to a need for dialysis, vascular surgery service | | was consulted for placement of a tunneled dialysis catheter. | | | | FINDINGS | | The patient had good withdrawal and flush from all ports, and the tip was | | found to be at the SVC-atrial junction. | | | | DESCRIPTION OF PROCEDURE | | The patient was properly identified and brought to the catheterization | | lab. The patient was placed supine on the catheterization lab table and | | the patient was given moderate sedation. The right neck and right chest | | were prepped and draped in the usual sterile fashion. Local anesthetic was | | then given to the right neck and right chest. Under ultrasound guidance, | | the internal jugular vein was accessed with the micropuncture needle. Once | | the internal jugular vein was accessed, a subcutaneous tunnel was then | | created in the right chest and a 23 cm tunneled dialysis catheter was then | | placed through the subcutaneous tunnel out the right neck. Next a stiff | | guidewire was passed into the inferior vena cava and serial dilators were | | used to dilate the tract and an introducer was placed. Using the | | introducer, the dialysis catheter was then placed into the internal | | jugular vein with the tip ending in the superior vena cava-atrial | | junction. The patient tolerated the procedure well. There was good | | withdrawal and flush from all ports, and the ports were then instilled | | with 1.6 mL of concentrated heparin for each port. The deep dermal tissue | | was then closed with 3-0 Vicryl and the skin was then closed with | | Dermabond. The patient tolerated the procedure well and was taken back to | | the [facility] in stable condition. There were no apparent complications. | | | | Read by OSKAR MEYER MD 04/10/2012 04:13 P | | | | | + + US Guided Vascular Access (04/10/2012 3:56 PM PDT) + + | Specimen | + + | | + + + + + | Narrative | Performed At | + + + | | | | | | | PREOPERATIVE DIAGNOSIS Acute renal failure with need for dialysis | | | access. POSTOPERATIVE DIAGNOSIS Acute renal failure with need for | | | dialysis access. PROCEDURE Right internal jugular PermCath | | | placement under ultrasound guidance. SURGEON Oskar Meyer MD | | | CERTIFIED WELLNESS PROGRAM MANAGER None. ANESTHESIA Local with moderate sedation. | | | ESTIMATED BLOOD LOSS Minimal. INDICATIONS Mr. Potter is a | | | 47-year-old gentleman who presented to the hospital with acute renal | | | failure. Due to a need for dialysis, vascular surgery service was | | | consulted for placement of a tunneled dialysis catheter. FINDINGS | | | The patient had good withdrawal and flush from all ports, and the tip | | | was found to be at the SVC-atrial junction. DESCRIPTION OF | | | PROCEDURE The patient was properly identified and brought to the | | | catheterization lab. The patient was placed supine on the | | | catheterization lab table and the patient was given moderate | | | sedation. The right neck and right chest were prepped and draped in | | | the usual sterile fashion. Local anesthetic was then given to the | | | right neck and right chest. Under ultrasound guidance, the internal | | | jugular vein was accessed with the micropuncture needle. Once the | | | internal jugular vein was accessed, a subcutaneous tunnel was then | | | created in the right chest and a 23 cm tunneled dialysis catheter was | | | then placed through the subcutaneous tunnel out the right neck. Next | | | a stiff guidewire was passed into the inferior vena cava and serial | | | dilators were used to dilate the tract and an introducer was placed. | | | Using the introducer, the dialysis catheter was then placed into the | | | internal jugular vein with the tip ending in the superior vena | | | cava-atrial junction. The patient tolerated the procedure well. There | | | was good withdrawal and flush from all ports, and the ports were | | | then instilled with 1.6 mL of concentrated heparin for each port. The | | | deep dermal tissue was then closed with 3-0 Vicryl and the skin was | | | then closed with Dermabond. The patient tolerated the procedure well | | | and was taken back to the [facility] in stable condition. There were no | | | apparent complications. Read by OSKAR MEYER MD 04/10/2012 04:13 P | | | | | + + + + + | Procedure Note | + + | Khalif Palm - 02/14/2019 4:18 AM PDT | | | | PREOPERATIVE DIAGNOSIS | | Acute renal failure with need for dialysis access. | | | | POSTOPERATIVE DIAGNOSIS | | Acute renal failure with need for dialysis access. | | | | PROCEDURE | | Right internal jugular PermCath placement under ultrasound guidance. | | | | SURGEON | | Oskar Meyer MD | | | | CERTIFIED WELLNESS PROGRAM MANAGER | | None. | | | | ANESTHESIA | | Local with moderate sedation. | | | | ESTIMATED BLOOD LOSS | | Minimal. | | | | INDICATIONS | | Mr. Potter is a 47-year-old gentleman who presented to the hospital with | | acute renal failure. Due to a need for dialysis, vascular surgery service | | was consulted for placement of a tunneled dialysis catheter. | | | | FINDINGS | | The patient had good withdrawal and flush from all ports, and the tip was | | found to be at the SVC-atrial junction. | | | | DESCRIPTION OF PROCEDURE | | The patient was properly identified and brought to the catheterization | | lab. The patient was placed supine on the catheterization lab table and | | the patient was given moderate sedation. The right neck and right chest | | were prepped and draped in the usual sterile fashion. Local anesthetic was | | then given to the right neck and right chest. Under ultrasound guidance, | | the internal jugular vein was accessed with the micropuncture needle. Once | | the internal jugular vein was accessed, a subcutaneous tunnel was then | | created in the right chest and a 23 cm tunneled dialysis catheter was then | | placed through the subcutaneous tunnel out the right neck. Next a stiff | | guidewire was passed into the inferior vena cava and serial dilators were | | used to dilate the tract and an introducer was placed. Using the | | introducer, the dialysis catheter was then placed into the internal | | jugular vein with the tip ending in the superior vena cava-atrial | | junction. The patient tolerated the procedure well. There was good | | withdrawal and flush from all ports, and the ports were then instilled | | with 1.6 mL of concentrated heparin for each port. The deep dermal tissue | | was then closed with 3-0 Vicryl and the skin was then closed with | | Dermabond. The patient tolerated the procedure well and was taken back to | | the [facility] in stable condition. There were no apparent complications. | | | | Read by OSKAR MEYER MD 04/10/2012 04:13 P | | | | | + + Culture, Blood, 2nd Specimen (04/10/2012 3:42 PM PDT) + + | Specimen | + + | Blood specimen | | (specimen) | + + + + + | Narrative | Performed At | + + + | Specimen Description BLOOD, PERIPHERAL DRAW | EXTERNAL LAB | | Testing performed | | | at [facility];[address] [place] [address];[place] [address] SPECIAL REQUESTS | | | RAC | | | Testing performed at [facility];[address] [place] [address];[place] [address] | | | GRAM STAIN GRAM POSITIVE COCCI IN | | | CLUSTERS SEEN ON SMEAR FROM AEROBIC BOTTLEAbnormal | | | SMEAR RESULTS CALLED TO AND READ | | | BACK BY: YAZMIN DUNCAN, 04/10/12 AT 2356 BY | | | Testing performed at [facility];[address] | | | [facility];[place] [address] CULTURE | | | STAPHYLOCOCCUS AUREUSAbnormal | | | GROWTH IN ONE OF TWO BOTTLESAbnormal | | | TIME TO DETECTION: 0.31 DAYS | | | VANCOMYCIN TERRANCE IS | | | EQUAL TO ONE. | | | Testing performed at [facility], [address], [place] | | | [address] REPORT STATUS 04/13/2012 | | | FINAL Organism STAPHYLOCOCCUS | | | AUREUS Suscepibility for - STAPHYLOCOCCUS AUREUS Gentamicin | [...] | + +---------+ + + Culture, Blood (04/10/2012 3:32 PM PDT) + + | Specimen | + + | Blood specimen | | (specimen) | + + + + + | Narrative | Performed At | + + + | Specimen Description BLOOD, PERIPHERAL DRAW | EXTERNAL LAB | | Testing performed | | | at [facility];[address] [place] [address];[place] [address] SPECIAL REQUESTS | | | LAC | | | Testing performed at [facility];[address] [place] [address];[place] [address] | | | GRAM STAIN GRAM POSITIVE COCCI | | | SEEN ON GRAM STAIN FROM AEROBIC AND ANAEROBIC BOTTLES SMEAR RESULTS | | | CALLED TO AND READ BACK BY: LINDA Mccullough IN [facility] AT 1340 ON [id number] BY | | | CRK Testing | | | performed at [facility];[address] [place] [address];[place] [address] CULTURE | | | STAPHYLOCOCCUS AUREUSAbnormal | | | STREPTOCOCCUS | | | ANGINOSUSAbnormal | | | TIME TO DETECTION: 0.85 DAYS | | | GROWTH IN TWO OF TWO BOTTLESAbnormal | | | Testing performed at [facility], [address] | | | [place] [address] REPORT STATUS | | | 04/15/2012 FINAL Organism | | | STAPHYLOCOCCUS AUREUS | | | STREPTOCOCCUS ANGINOSUS Suscepibility for - | | | STAPHYLOCOCCUS AUREUS Gentamicin | | | SUSCEPTIBLESensitive Oxacillin | | | SUSCEPTIBLESensitive Penicillin G RESISTANT | | | Resistant Tetracycline | | | SUSCEPTIBLESensitive Trimethoprim + | | | SulfamethoxazoleSUSCEPTIBLESensitive Vancomycin | | | SUSCEPTIBLESensitive Moxifloxacin | | | SUSCEPTIBLESensitive Suscepibility for - STREPTOCOCCUS ANGINOSUS | | | Penicillin G SUSCEPTIBLESensitive | | | Vancomycin SUSCEPTIBLESensitive | | | Levofloxacin SUSCEPTIBLESensitive | | + + + + +---------+ + + | Performing | Address | City/State/Zipcode | Phone Number | | Organization | | | | + +---------+ + + | EXTERNAL LAB | | | | + +---------+ + + CT Guided Biopsy Renal (04/10/2012 11:00 AM PDT) + + | Specimen | + + | | + + + + + | Narrative | Performed At | + + + | HISTORY: Renal failure. Numerous small papular ulcerated lesions | | | covering the skin of the entire body. COMPARISON: None. | | | TECHNIQUE: Following a discussion of the proposed procedure and | | | potential complications including bleeding, infection, arteriovenous | | | fistula in the kidney, pneumothorax, informed consent was obtained. | | | There has was uncertain whether with the biopsy the right or left | | | kidney, this was discussed, and marked with the patient prior to | | | initiation of the procedure. Which ever kidney was easier to access | | | would be biopsied. Conscious sedation was provided by a certified | | | nurse in attendance throughout the procedure using 25 mcg fentanyl, | | | and 1 mg Versed, with adequate conscious sedation. Intra-sedation | | | time less than 30 minutes. The patient was placed prone on the CT | | | table. The right kidney was marked under CT guidance. The skin was | | | prepped and draped in the usual sterile fashion. The skin, | | | subcutaneous, and deep tissues were anesthetized using 1% lidocaine | | | buffered with bicarbonate. Under CT guidance, a 17-gauge | | | introducer was advanced into the inferior pole of the right kidney. | | | 5 -- 18G -- 2.2-cm cores were obtained. No bleeding from the hub | | | of the needle, unusual. Needle was removed. No complications. | | | IMPRESSION: 1. Successful renal biopsy inferior pole right kidney. | | | No significant bleeding was seen from the hub the needle, abnormal. | | | Correlate with biopsy results. Post biopsy scans are unremarkable. | | | | | + + + + + | Procedure Note | + + | Néstor, Khalif Conversion - 02/14/2019 4:18 AM PDT HISTORY:Renal failure. Numerous small | | papular ulcerated lesions covering the skin of the entire body. COMPARISON:None. | | TECHNIQUE:Following a discussion of the proposed procedure and potential complications | | including bleeding, infection, arteriovenous fistula in the kidney, pneumothorax, | | informed consent was obtained. There has was uncertain whether with the biopsy the | | right or left kidney, this was discussed, and marked with the patient prior to | | initiation of the procedure. Which ever kidney was easier to access would be biopsied. | | Conscious sedation was provided by a certified nurse in attendance throughout the | | procedure using 25 mcg fentanyl, and 1 mg Versed, with adequate conscious sedation. | | Intra-sedation time less than 30 minutes. The patient was placed prone on the CT table. | | The right kidney was marked under CT guidance. The skin was prepped and draped in the | | usual sterile fashion. The skin, subcutaneous, and deep tissues were anesthetized using | | 1% lidocaine buffered with bicarbonate. Under CT guidance, a 17-gauge introducer was | | advanced into the inferior pole of the right kidney. 5 -- 18G -- 2.2-cm cores were | | obtained. No bleeding from the hub of the needle, unusual. Needle was removed. No | | complications. IMPRESSION:1. Successful renal biopsy inferior pole right kidney. No | | significant bleeding was seen from the hub the needle, abnormal. Correlate with biopsy | | results. Post biopsy scans are unremarkable. | + + XR Chest 1 Vw (04/10/2012 8:40 AM PDT) + + | Specimen | + + | | + + + + + | Narrative | Performed At | + + + | CAROL POTTER XR CHEST 1 VIEW 04/10/2012 8:19 AM HISTORY: | | | Shortness of breath. TECHNIQUE: One view of the chest. | | | FINDINGS: Compared with April 02, 2012. There is persistent mild | | | to moderate cardiomegaly. There is developing mild bilateral | | | vascular engorgement and indistinctness, suggesting mild interstitial | | | edema. No pneumothorax or pleural effusions are seen. | | | IMPRESSION: 1. Mild congestive heart failure, progressive from the | | | prior study. Electronically signed by Kev Acevedo MD on | | | 04/10/2012 9:02 AM | | + + + + + | Procedure Note | + + | Néstor, Rad Conversion - 02/14/2019 4:18 AM PDT [facility]AR[facility] CHEST 1 VIEW04/10/2012 8:19 | | AM HISTORY:Shortness of breath. TECHNIQUE:One view of the chest. FINDINGS:Compared with | | April 02, 2012. There is persistent mild to moderate cardiomegaly. There is | | developing mild bilateral vascular engorgement and indistinctness, suggesting mild | | interstitial edema. No pneumothorax or pleural effusions are seen. IMPRESSION:1. Mild | | congestive heart failure, progressive from the prior study. | |TECHNIQUE: | |One view of the chest. | | | |FINDINGS: | |Compared with April 02, 2012. There is persistent mild to moderate cardiomegaly. There is developing mild bilateral vascular engorgement and indistinctness, suggesting mild inters titial edema. No pneumothorax or pleural effusions are seen. | | | |IMPRESSION: | |1. Mild congestive heart failure, progressive from the prior study. | | | | | + + Tissue Request For Pathology (04/09/2012 12:00 AM PDT) + + | Specimen | + + | | + + + + + | Narrative | Performed At | + + + | CASE: [id number] PATIENT: CAROL POTTER Surgical Pathology Report | EXTERNAL LAB | | PATHOLOGIC DIAGNOSIS: SKIN, RIGHT CHEST WALL, PUNCH BIOPSY: - | | | SUBCORNEAL PUSTULE IN THE VICINITY OF HAIR FOLLICLE. - SEE | | | COMMENT. COMMENT: Differential diagnosis includes acute | | | suppurative folliculitis versus a perforating disorder; however, the | | | lesion itself is cut through and hence I cannot definitively assess | | | for a perforating disorder on the special stains. There is no | | | evidence of a vasculitis or malignancy. Clinical correlation is | | | recommended. This case has been reviewed and dictated by Mariely | | | Arslan Sky, Board Certified Dermatopathologist. (GAP) | | | GAP:bayron:[id number] CLINICAL HISTORY: 04/09/2012. Acute renal failure. | | | Multiple bleeding skin lesions (sic) tlo (sic) body. Specimen site | | | designation, per Dr. Meza via Eri is "Right Chest Wall". | | | GROSS DESCRIPTION: The specimen is received in formalin labeled | | | "Tariq Nunez" designated "R chest wall", and consists of a 0.3 cm skin | | | punch biopsy that has been excised to a depth of 0.5 cm. The skin | | | surface is barrientos-brown and smooth. The specimen is inked and entirely | | | submitted in cassette A1. fam:lac MICROSCOPIC EXAMINATION: | | | Histologic sections of all submitted blocks are examined by light | | | microscopy. These findings, together with the gross examination, | | | support the pathologic diagnosis. GMS stain is performed and is | | | negative for fungal organisms; however, this is outside of the area | | | of the pustule. The stained section is outside the area of the | | | pustule. On the third level there is associated adjacent hair | | | follicle in this vicinity. On the first level there is associated | | | adjacent hair follicle in this vicinity. The adjacent epidermis shows | | | a mild superficial perivascular lymphocytic infiltrate with moderate | | | numbers of eosinophils. There is epidermal fibrosis. Collagen 4 | | | immunohistochemical stain is performed in order to assess the | | | basement membrane zone and shows an intact base of membrane and | | | vessels; however, this is in a deeper section away from the pustule. | | | Elastin stain is performed in order to rule out elastosis perforans | | | serpiginosa and is also in a section outside of the pustule; hence, | | | this identity cannot be entirely excluded. The stain does show normal | | | elastin fibers within the dermis. Levels are also examined and are | | | unremarkable. Immunohistochemical studies were performed on this | | | case with the appropriate negative and positive controls that react | | | as expected. These tests were developed and their performance | | | characteristics determined by [facility] and/or [facility] | | | Pathology. These tests may have not been cleared or approved by the | | | U.S. Food and Drug Administration. The FDA has determined that | | | such clearance or approval is not necessary. This test is intended | | | to be used for clinical purposes. It should not be regarded as | | | investigational or for research. [facility] and [facility] are | | | certified under the Clinical Laboratory Improvement Amendment Act of | | | 1988 (CLIA) as qualified to perform high complexity clinical | | | laboratory testing. Mariely Sky MD Electronically | | | signed Apr 15, 2012 3:25:20PM | | + + + + +---------+ + + | Performing | Address | City/State/Zipcode | Phone Number | | Organization | | | | + +---------+ + + | EXTERNAL LAB | | | | + +---------+ + + Culture, Urine (04/07/2012 1:36 PM PDT) + + | Specimen | + + | Urine specimen | | (specimen) | + + + + + | Narrative | Performed At | + + + | Specimen Description URINE, COLLECTION NOT | EXTERNAL LAB | | GIVEN Testing | | | performed at [facility];[address] [facility];[place] [address] CULTURE | | | >100,000 CFU/ML STAPHYLOCOCCUS | | | AUREUSAbnormal | | | Testing performed at [facility], [address] [facility], [place], [place] | | | [address] REPORT STATUS 04/09/2012 | | | FINAL Organism STAPHYLOCOCCUS | | | AUREUS Suscepibility for - STAPHYLOCOCCUS AUREUS Gentamicin | | | SUSCEPTIBLESensitive Nitrofurantoin | | | SUSCEPTIBLESensitive Oxacillin | | | SUSCEPTIBLESensitive Penicillin G | | | RESISTANT Resistant Tetracycline | | | SUSCEPTIBLESensitive Trimethoprim + | | | SulfamethoxazoleSUSCEPTIBLESensitive Vancomycin | | | SUSCEPTIBLESensitive Levofloxacin | | | SUSCEPTIBLESensitive Moxifloxacin | | | SUSCEPTIBLESensitive | | + + + + +---------+ + + | Performing | Address | City/State/Zipcode | Phone Number | | Organization | | | | + +---------+ + + | EXTERNAL LAB | | | | + +---------+ + + CT Chest wo Contrast (04/06/2012 6:01 PM PDT) + + | Specimen | + + | | + + + + + | Narrative | Performed At | + + + | CHEST CT WITHOUT IV CONTRAST 04/06/2012 HISTORY: Cough. | | | COMPARISON: Chest radiograph on 04/02/2012. TECHNIQUE: Helical | | | axial scans of the chest without IV contrast. Coronal reformatted | | | images. FINDINGS: Small pleural effusion bilaterally. Small to | | | moderate pericardial effusion, measuring about 13 mm in width. Minimal | | | lower lung atelectasis. No pulmonary consolidation or mass. No | | | pneumothorax. Trachea and major bronchi appear normal. Mild | | | enlargement of aortopulmonary window and subcarinal nodes, up to 12 mm | | | in short dimension. Minimal atherosclerosis of left anterior | | | descending coronary artery. Upper abdomen demonstrates no mass or | | | adenopathy. Very small amount of ascites adjacent to the liver. | | | Degenerative changes of the spine. Old right clavicle fracture. No | | | acute skeletal abnormality. Diffuse subcutaneous edema. | | | IMPRESSION: 1. Small bilateral pleural effusion. 2. Small to | | | moderate pericardial effusion. 3. Mild bilateral lower lung | | | atelectasis. 4. Mild enlargement of aortopulmonary window and | | | subcarinal nodes. 5. Minimal atherosclerosis of left anterior | | | descending coronary artery. 6. Very small amount of ascites adjacent | | | to the liver. 7. Diffuse subcutaneous edema. Electronically | | | signed by Favio Hughes MD on Apr 07 2012 8:45AM | | + + + + + | Procedure Note | + + | Néstor, Rad Conversion - 02/14/2019 4:[address] WITHOUT IV CONTRAST 04/06/2012 | | HISTORY: Cough. COMPARISON: Chest radiograph on 04/02/2012. TECHNIQUE: Helical axial | | scans of the chest without IV contrast. Coronal reformatted images. FINDINGS: Small | | pleural effusion bilaterally. Small to moderate pericardial effusion, measuring about 13 | | mm in width. Minimal lower lung atelectasis. No pulmonary consolidation or mass. No | | pneumothorax. Trachea and major bronchi appear normal. Mild enlargement of | | aortopulmonary window and subcarinal nodes, up to 12 mm in short dimension. Minimal | | atherosclerosis of left anterior descending coronary artery. Upper abdomen demonstrates | | no mass or adenopathy. Very small amount of ascites adjacent to the liver. Degenerative | | changes of the spine. Old right clavicle fracture. No acute skeletal abnormality. | | Diffuse subcutaneous edema. IMPRESSION:1. Small bilateral pleural effusion.2. Small to | | moderate pericardial effusion.3. Mild bilateral lower lung atelectasis.4. Mild | | enlargement of aortopulmonary window and subcarinal nodes.5. Minimal atherosclerosis of | | left anterior descending coronary artery.6. Very small amount of ascites adjacent to the | | liver.7. Diffuse subcutaneous edema. Electronically signed by Favio Hughes MD on Apr 07 | | 2011 8:45AM | |3. Mild bilateral lower lung atelectasis. | |4. Mild enlargement of aortopulmonary window and subcarinal nodes. | |5. Minimal atherosclerosis of left anterior descending coronary artery. | |6. Very small amount of ascites adjacent to the liver. | |7. Diffuse subcutaneous edema. | | | | Electronically signed by Favio Hughes MD on Apr 07 2012 8:45AM | + + Culture, Urine (04/06/2012 12:22 AM PDT) + + | Specimen | + + | | + + + + + | Narrative | Performed At | + + + | Specimen Description URINE, COLLECTION NOT | EXTERNAL LAB | | GIVEN Testing | | | performed at [facility];[address] [place] [address];[place] [address] CULTURE | | | >100,000 CFU/ML STAPHYLOCOCCUS | | | AUREUSAbnormal | | | Testing performed at [facility], [address], [place] | | | [address] REPORT STATUS 04/08/2012 | | | FINAL Organism STAPHYLOCOCCUS | | | AUREUS Suscepibility for - STAPHYLOCOCCUS AUREUS Gentamicin | | | SUSCEPTIBLESensitive Nitrofurantoin | | | SUSCEPTIBLESensitive Oxacillin | | | SUSCEPTIBLESensitive Penicillin G | | | RESISTANT Resistant Tetracycline | | | SUSCEPTIBLESensitive Trimethoprim + | | | SulfamethoxazoleSUSCEPTIBLESensitive Vancomycin | | | SUSCEPTIBLESensitive Levofloxacin | | | SUSCEPTIBLESensitive Moxifloxacin | | | SUSCEPTIBLESensitive | | + + + + +---------+ + + | Performing | Address | City/State/Zipcode | Phone Number | | Organization | | | | + +---------+ + + | EXTERNAL LAB | | | | + +---------+ + + Culture, Blood, 2nd Specimen (04/03/2012 2:15 PM PDT) + + | Specimen | + + | Blood specimen | | (specimen) | + + + + + | Narrative | Performed At | + + + | Specimen Description BLOOD, PERIPHERAL DRAW | EXTERNAL LAB | | Testing performed | | | at [facility];[address] [place] [address];[place] [address] SPECIAL REQUESTS | | | RAC | | | Testing performed at [facility];[address] [place] [address];[place] [address] | | | CULTURE NO GROWTH IN 5 DAYS. | | | Testing | | | performed at [facility];[address] [place] [address];[place] [address] REPORT STATUS | | | 04/09/2012 FINAL | | + + + + +---------+ + + | Performing | Address | City/State/Zipcode | Phone Number | | Organization | | | | + +---------+ + + | EXTERNAL LAB | | | | + +---------+ + + Culture, AFB, and Smear (04/03/2012 2:15 PM PDT) + + | Specimen | + + | Body fluid sample | | (specimen) | + + + + + | Narrative | Performed At | + + + | Specimen Description SPUTUM | EXTERNAL LAB | | Testing performed at [facility];[address] | | | [facility];[place] [address] AFB STAIN | | | NO ACID FAST BACILLI SEEN | | | Testing performed at [facility], [address] [facility], | | | [place] [address] CULTURE | | | NO ACID FAST BACILLI ISOLATED | | | Testing performed at [facility], [address] [place] [address], | | | [place] [address] REPORT STATUS | | | 05/16/2012 FINAL | | + + + + +---------+ + + | Performing | Address | City/State/Zipcode | Phone Number | | Organization | | | | + +---------+ + + | EXTERNAL LAB | | | | + +---------+ + + Culture, Blood (04/03/2012 2:15 PM PDT) + + | Specimen | + + | Blood specimen | | (specimen) | + + + + + | Narrative | Performed At | + + + | Specimen Description BLOOD, PERIPHERAL DRAW | EXTERNAL LAB | | Testing performed | | | at [facility];[address] [place] [address];[place] [address] SPECIAL REQUESTS | | | LAC | | | Testing performed at [facility];[address] [place] [address];[place] [address] | | | CULTURE NO GROWTH IN 5 DAYS. | | | Testing | | | performed at [facility];[address] [place] [address];[place] [address] REPORT STATUS | | | 04/09/2012 FINAL | | + + + + +---------+ + + | Performing | Address | City/State/Zipcode | Phone Number | | Organization | | | | + +---------+ + + | EXTERNAL LAB | | | | + +---------+ + + XR Chest 2 Vws (04/02/2012 1:04 PM PDT) + + | Specimen | + + | | + + + + + | Narrative | Performed At | + + + | CAROL POTTER 1965 47 years Male XR CHEST 2 VIEW FRONTAL AND | | | LATERAL 04/02/2012 1:00 PM INDICATION: Shortness of breath | | | COMPARISON: None. TECHNIQUE: Two view chest, PA and lateral views | | | FINDINGS: Mild cardiomegaly is demonstrated. There is no | | | mediastinal widening or shift. There is no pneumothorax or effusion. | | | Scattered fine reticular markings are seen along the periphery of | | | the lungs bilaterally in the lower lobes. The pulmonary | | | vasculature is normal in caliber. There are no pulmonary nodules. | | | Moderate acromioclavicular osteoarthritis is present. There is | | | mild degenerative disk disease of the thoracic spine. IMPRESSION: | | | 1. Scattered reticular markings in the lower lungs bilaterally | | | which may reflect interstitial changes versus mild edema. | | | | | + + + + + | Procedure Note | + + | Néstor, Rad Conversion - 02/14/2019 4:18 AM PDT CAROL POTTER years MaleXR CHEST | | 2 VIEW FRONTAL AND DUUOMBO6204/02/2012 1:00 PM INDICATION: Shortness of breath | | COMPARISON: None. TECHNIQUE: Two view chest, PA and lateral views FINDINGS: Mild | | cardiomegaly is demonstrated. There is no mediastinal widening or shift. There is no | | pneumothorax or effusion. Scattered fine reticular markings are seen along the | | periphery of the lungs bilaterally in the lower lobes. The pulmonary vasculature is | | normal in caliber. There are no pulmonary nodules. Moderate acromioclavicular | | osteoarthritis is present. There is mild degenerative disk disease of the thoracic | | spine. IMPRESSION:1. Scattered reticular markings in the lower lungs bilaterally which | | may reflect interstitial changes versus mild edema. | | | |FINDINGS: Mild cardiomegaly is demonstrated. There is no mediastinal widening or shift. T here is no pneumothorax or effusion. Scattered fine reticular markings are seen along the p eriphery of the lungs bilaterally in the lower lobes. The pulmonary | |vasculature is normal in caliber. There are no pulmonary nodules. Moderate acromioclavicu lar osteoarthritis is present. There is mild degenerative disk disease of the thoracic spin e. | | | |IMPRESSION: | |1. Scattered reticular markings in the lower lungs bilaterally which may reflect interstit ial changes versus mild edema. | | | | | + + Culture, Urine (04/02/2012 2:29 AM PDT) + + | Specimen | + + | Urine specimen | | (specimen) | + + + + + | Narrative | Performed At | + + + | Specimen Description CATHETERIZED URINE | EXTERNAL LAB | | Testing performed at | | | [facility];[address] [facility];[place] [address] CULTURE | | | NO GROWTH 2 DAYS | | | Testing performed at [facility], [address] [facility], | | | [place] [address] REPORT STATUS | | | 04/04/2012 FINAL | | + + + + +---------+ + + | Performing | Address | City/State/Zipcode | Phone Number | | Organization | | | | + +---------+ + + | EXTERNAL LAB | | | | + +---------+ + + documented in this encounter Visit Diagnoses + + | Diagnosis | + + | Acute renal failure (HCC) Acute kidney failure, unspecified | + + | Acidosis | + + | Hyperphosphatemia Disorders of phosphorus metabolism | + + | Rash and nonspecific skin eruption Rash and other nonspecific skin eruption | + + | Renal failure, acute (HCC) Acute kidney failure, unspecified | + + | Vitamin D deficiency Unspecified vitamin D deficiency | + + | Secondary hyperparathyroidism (of renal origin) | + + | Hypokalemia Hypopotassemia | + + | Essential hypertension, benign | + + | Hypocalcemia | + + | Hypomagnesemia Disorders of magnesium metabolism | + + | Metabolic acidosis Acidosis | + + | Type II or unspecified type diabetes mellitus without mention of complication, not | | stated as uncontrolled | + + | Amphetamine and other psychostimulant dependence, continuous | + + | Eczema herpeticum | + + | Hypothyroidism Unspecified hypothyroidism | + + | MSSA (methicillin susceptible Staphylococcus aureus) infection Methicillin | | susceptible Staphylococcus aureus in conditions classified elsewhere and of unspecified | | site | + + | 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) Type II or unspecified | | type diabetes mellitus with renal manifestations, not stated as uncontrolled | + + | Hyponatremia Hyposmolality and/or hyponatremia | + + | Hypoalbuminemia Other disorders of plasma protein metabolism | + + | Obesity (BMI 30-39.9) Obesity, unspecified | + + | Unspecified asthma(493.90) Unspecified asthma | + + | Chest pain Chest pain, unspecified | + + | Protein calorie malnutrition (HCC) Unspecified protein-calorie malnutrition | + + | Anemia Anemia, unspecified | + + | Hyperkalemia Hyperpotassemia | + + | Methamphetamine abuse (HCC) Nondependent amphetamine or related acting | | sympathomimetic abuse, unspecified | + + | Rhabdomyolysis | + + documented in this encounter
--- OUTSIDE RECORDS SUMMARY | ~2019-05-20 | XMS | Encounter Summary ---
Demographics + + + | Address | [address] | | | [place] [address] | + + + | Home Phone | | + + + | Preferred Language | Unknown | + + + | Marital Status | Unknown | + + + | Tenriism Affiliation | [id number] | + + + [...] Team Providers + +------+ + | Care Coke Inspector Name | Role | Phone | + +------+ + PCP | Unavailable | + +------+ + Encounter Details +--------+ + + + + | Date | Type | Department | Care Team | Description | +--------+ + + + + | 07/03/ | Hospital | [facility] | Conversion | | | 2013 | Encounter | [facility] | Transaction, | | | | | CLINIC [address] | Provider Unknown | | | | | [place], [place] | | | | | | [address] | (Fax) | | | | | [phone] | | | +--------+ + + + [...] + | MRSA NAAT | Timed | 07/03/2012 | | Results for this | | | | 8:34 AM | | procedure are in the | | | | PST | | results section. | + +--------+ + + + documented in this encounter Results MRSA NAAT (07/03/2012 8:34 AM PST) + + | Specimen | + + | | + + + + + | Narrative | Performed At | + + + | SOURCE NARES(NOSE) | EXTERNAL LAB | | Testing performed at [facility];[address] [place] [address];[place] [address] MRSA PCR | | | NEGATIVE Testing performed at | | | [facility];[address] [place] [address];[place] [address] | | + + + + +---------+ + + | Performing | Address | City/State/Zipcode | Phone Number | | Organization | | | | + +---------+ + + | EXTERNAL LAB | | | | + +---------+ + + documented in this encounter Visit Diagnoses Not on filedocumented in this encounter"
--- OUTSIDE RECORDS SUMMARY | ~2019-05-20 | XMS | Encounter Summary ---
Demographics + + + | Address | [address] | | | [place] [address] | + + + | Home Phone | | + + + | Preferred Language | Unknown | + + + | Marital Status | Unknown | + + + | Episcopalian Affiliation | [id number] | + + + | Race | Unknown | + + + | Ethnic Group | Unknown | + + + Author + + + | Author | [facility] | | | and [place] | + + + | Organization | [facility] | | | [...] Team Providers + +------+ + | Care Astronomy Instructor Name | Role | Phone | + +------+ + PCP | Unavailable | + +------+ + Encounter Details +--------+ + + + + | Date | Type | Department | Care Team | Description | +--------+ + + + + | 12/23/ | Hospital | [facility] | Conversion | ESRD (end stage | | 2014 | Encounter | CENTER [facility] | Transaction, | renal disease) (HCC) | | | | [address] | Provider Unknown | | | | | [place], [place] | [phone] | | | | | [address] | | | | | | [phone] | Juan Timmons MD | | | | | | [address] | | | | | | [place] | | | | | | [address] | | | | | | | [...] EXTERNAL LAB | | Testing performed at [facility];[address] [place] [address];[place] [address] MRSA PCR | | | NEGATIVE Testing performed at | | | [facility];[address] [facility];[place] [address] | | + + + + +---------+ [...] | | | Patient | performed at [facility];[address] | | LAB | | | [address];[place], [place] | | | | | | [address] | | | | + + + [...] | | | | | performed at [facility] | | | | | | [address];[place], [place] | | | | | | [address] | | | | + + + [...] EXTERNAL | | | | performed at [facility];[address] | | LAB | | | | [address];[place] | | | | | | [address] | | | | + + + + + + | RED CELL | 3.70 (L)Comment: Testing | 4.20 - 5.70 | EXTERNAL | | | COUNT | performed at [facility];[address] | M/uL | LAB | | | | [address];[place] | | | | | | [address] | | | | + + + + + + | Hgb | 11.6 (L)Comment: Testing | 13.2 - 17.0 | EXTERNAL | | | | performed at [facility];888 | g/dL | LAB | | | | [address];[place] | | | | | | [address] | | | | + + + + + + | Hematocrit, | 34.8 (L)Comment: Testing | 39.0 - 50.0 % | EXTERNAL | | | POC | performed at [facility];[address] | | LAB | | | | [address];[place] | | | | | | [address] | | | | + + + + + + | MCV | 93.9Comment: Testing | 80.0 - 100.0 fl | EXTERNAL | | | | performed at [facility];[address] | | LAB | | | | [address];[place] | | | | | | [address] | | | | + + + + + + | MCH | 31.4Comment: Testing | 27.0 - 34.0 pg | EXTERNAL | | | | performed at [facility];[address] | | LAB | | | | [address];[place] | | | | | | [address] | | | | + + + + + + | MCHC | 33.5Comment: Testing | 32.0 - 35.5 | EXTERNAL | | | | performed at [facility];888 | g/dL | LAB | | | | [address];[place] | | | | | | [address] | | | | + + + + + + | RDW-CV | 48.1Comment: Testing | 37 - 53 fl | EXTERNAL | | | | performed at [facility];[address] | | LAB | | | | [address];[place] | | | | | | [address] | | | | + + + + + + | Platelet | 257Comment: Testing | 150 - 400 K/uL | EXTERNAL | | | Count | performed at [facility];[address] | | LAB | | | Plasma | [address];[place] | | | | | | [address] | | | | + + + + + + | MPV | 6.5Comment: Testing | fl | EXTERNAL | | | | performed at [facility];[address] | | LAB | | | | [address];[place] | | | | | | [address] | | | | + + + + + + | Differentia | AUTOMATEDComment: | | EXTERNAL | | | l Type | Testing performed at | | LAB | | | | [facility];[address];[place] [address] | | | | + + + + + + | % Segmented | 65.0Comment: Testing | % | EXTERNAL | | | | performed at [facility];[address] | | LAB | | | Neutrophils | [address];[place] | | | | | | [address] | | | | + + + + + + | % | 15.6Comment: Testing | % | EXTERNAL | | | Lymphocytes | performed at [facility];[address] | | LAB | | | | [address];[place] | | | | | | [address] | | | | + + + + + + | % Monocytes | 13.9Comment: Testing | % | EXTERNAL | | | | performed at [facility];[address] | | LAB | | | | [address];[place] | | | | | | [address] | | | | + + + + + + | % | 4.9Comment: Testing | % | EXTERNAL | | | Eosinophils | performed at [facility];[address] | | LAB | | | | [address];[place] | | | | | | [address] | | | | + + + + + + | % Basophils | 0.6Comment: Testing | % | EXTERNAL | | | | performed at [facility];[address] | | LAB | | | | [address];[place] | | | | | | [address] | | | | + + + + + + | Absolute | 5.2Comment: Testing | 1.9 - 7.4 K/uL | EXTERNAL | | | Segmented | performed at [facility];[address] | | LAB | | | Neutrophils | [address];[place] | | | | | | [address] | | | | + + + + + + | Absolute | 1.2Comment: Testing | 1.0 - 3.9 K/uL | EXTERNAL | | | Lymphocytes | performed at [facility];[address] | | LAB | | | | [address];[place] | | | | | | [address] | | | | + + + + + + | Absolute | 1.1 (H)Comment: Testing | 0 - 0.8 K/uL | EXTERNAL | | | Monocytes | performed at [facility];[address] | | LAB | | | | [address];[place] | | | | | | [address] | | | | + + + + + + | Absolute | 0.4Comment: Testing | 0 - 0.5 K/uL | EXTERNAL | | | Eosinophils | performed at [facility];[address] | | LAB | | | | [address];[place] | | | | | | [address] | | | | + + + + + + | Absolute | 0.0Comment: Testing | 0 - 0.1 K/uL | EXTERNAL | | | Basophils | performed at [facility];[address] | | LAB | | | | [address];[place] | | | | | | [address] | | | | + + + [...] EXTERNAL | | | | performed at [facility];[address] | mmol/L | LAB | | | | [address];[place] | | | | | | [address] | | | | + + + + + + | K | 3.5Comment: Testing | 3.5 - 4.9 | EXTERNAL | | | | performed at [facility];[address] | mmol/L | LAB | | | | [address];[place] | | | | | | [address] | | | | + + + + + + | Cl | 88 (L)Comment: Testing | 99 - 109 mmol/L | EXTERNAL | | | | performed at [facility];[address] | | LAB | | | | [address];[place] | | | | | | [address] | | | | + + + + + + | CO2 | 30Comment: Testing | 23 - 32 mmol/L | EXTERNAL | | | | performed at [facility];[address] | | LAB | | | | [address];[place] | | | | | | [address] | | | | + + + + + + | Anion Gap | 16Comment: Testing | 5 - 20 mmol/L | EXTERNAL | | | | performed at [facility];[address] | | LAB | | | | [address];[place] | | | | | | [address] | | | | + + + + + + | Glucose, | 101 (H)Comment: Testing | 65 - 99 mg/dL | EXTERNAL | | | Fasting | performed at [facility];[address] | | LAB | | | | [address];[place] | | | | | | [address] | | | | + + + + + + | BUN | 37 (H)Comment: Testing | 8 - 25 mg/dL | EXTERNAL | | | | performed at [facility];[address] | | LAB | | | | [address];[place] | | | | | | [address] | | | | + + + + + + | Creatinine | 9.47 (H)Comment: Testing | 0.70 - 1.30 | EXTERNAL | | | | performed at [facility];[address] | mg/dL | LAB | | | | [address];[place] | | | | | | [address] | | | | + + + + + + | BUN/Creatin | 4Comment: Testing | | EXTERNAL | | | ine Ratio | performed at [facility];[address] | | LAB | | | | [address];[place] | | | | | | [address] | | | | + + + + + + | Calcium | 8.2 (L)Comment: Testing | 8.5 - 10.2 | EXTERNAL | | | | performed at [facility];[address] | mg/dL | LAB | | | | [address];[place] | | | | | | [address] | | | | + + + [...] | | | | | | at [facility];[address] [place] [address] | | | | | | [facility];[place] [address] | | | | + + + [...]
--- OUTSIDE RECORDS SUMMARY | ~2019-05-20 | XMS | Encounter Summary ---
Demographics + + + | Address | [address] | | | [place] [address] | + + + | Home Phone | | + + + | Preferred Language | Unknown | + + + | Marital Status | Unknown | + + + | Amish Affiliation | 1076 | + + + | Race | Unknown | + + + | Ethnic Group | Unknown | + + + Author + + + | Author | [facility] | | | and [place] | + + + | Organization | [facility] | | [...] Team Providers + +------+ + | Care [employer] Industrial Arts Teacher Name | Role | Phone | + +------+ + PCP | Unavailable | + +------+ + Encounter Details +--------+ + + + + | Date | Type | Department | Care Team | Description | +--------+ + + + + | 08/08/ | Hospital | [facility] | Vikram Colbert MD | Hyperkalemia; | | 2012 - | Encounter | [facility] | [address] | Hypothyroidism; | | | | C[address] | [place] [address] | Vitamin d | | 08/09/ | | [address] | [phone] | deficiency; Gout; | | 2012 | | [place], [place] | | Amphetamine and | | | | [address] | | other | | | | [phone] | | psychostimulant | | | | [...] | | | | | | uncontrolled ([facility]); | | | | | | ESRD (end stage | | | | | | renal disease) on | | | | | | dialysis ([facility]); | | | | | | Nodular [...] Summaries by Neli Trujillo MD at 08/19/12 1439 Author: Neli Trujillo MD Service: (none) Author Type: Physician Filed: 08/19/12 1450 Date of Service: 08/19/121438 Status: Signed Almond Paste Mixer: Neli Trujillo MD (Physician) [facility] Service: Hospitalist Discharge Summary Date of Admission: 08/08/2012 Date of Discharge: 08/09/12 Discharge Provider: NELI TRUJILLO MD Treatment Team: Consulting Physician: Vikram Colbert MD Consulting Physician: Sean Reid MD Admitting Provider: iVkram Colbert MD Discharge Diagnoses: Active Problems: Type [...] the hospital for bacteremia. At that ti me dialysis catheter was changed, and he had a RONY as well. He missed his dialysis yesterday ; now he went to the emergency room at [facility], where he had a neck pain and wa s found to be anemic and transferred to [facility]. At [facility] his hemoglobin was 5.7 and hematocrit [...] disch arge 2. End-stage renal disease. IDr. reid on consult, plans for HD on her [...] W/ EGD; Surgeon: John Singleton MD; Location: [facility]; Se rvice: Gastroenterology; Laterality: N/A; Av fistula placement 05/06/2012 Procedure: AV FISTULA; Surgeon: Oskar Meyer MD; Location: [facility]; Service: Vascul ar; Laterality: Left; Left arm possible right Unlisted procedure arthroscopy shoulder rt , ligaments Knee arthroscopy 07/07/2012 Procedure: KNEE - ARTHROSCOPY; Surgeon: Favio Raza MD; Location: [facility]; [email or web address]]: Orthopedics; Laterality: Right; After 1530 Catheter removal 07/07/2012 Procedure: DIALYSIS CATHETER REMOVAL; Surgeon: Oskar Meyer MD; Location: [facility] [place] [facility]URE; Service: General; Laterality: Right; perm cath Dialysis fistula creation 07/07/2012 Procedure: DIALYSIS CATHETER INSERTION; Surgeon: Oskar Meyer MD; Location: [facility] PROCEDURE; Service: General; Laterality: Left; temporary dialysis catheter Av fistula repair 07/11/2012 Procedure: AV FISTULA GRAFT REPAIR/REVISION; Surgeon: Oskar Meyer MD; Location: [facility] OR; Service: Vascular; Laterality: Left; Superficialization of brachiobasilic fistula and right IJ perm cath insertion Dialysis fistula creation 07/11/2012 Procedure: DIALYSIS CATHETER INSERTION; Surgeon: Oskar Meyer MD; Location: [facility]; Service: Vascular; Laterality: Left; removed [...] No discharge procedures on file. Follow up: [facility] [address] [facility] [address] in 2 days Sean Reid MD [address] [facility] [address] in 2 days Discharge Medication List as [...] tablet by mouth daily., Starting 07/13/2012, Un gisell Michel 08/12/12, Print amlodipine (NORVASC) 10 MG tablet Take [...] Until Discontinued, Histori herminia Med ergocalciferol (DRISDOL) 91370 UNITS capsule Take 1 capsule by mouth [...] 08/09/121911 Date of Service: 08/09/121910 Status: Signed Almond Paste Mixer: Maddy Maciel, RN (Registered Nurse) Patient given discharge instructions [...] Notes by Sean Reid MD at 08/09/12 1239 Author: Sean Reid MD Service: Nephrology Author Type: Physician Filed: 08/09/12 1252 Date of Service: 08/09/121238 Status: Signed Almond Paste Mixer: Sean Reid MD (Physician) [facility] Service: NEPHROLOGY Progress Note Enrique Potetr 47 y.o. [id number] male [facility] Hospital Day: LOS: 1 day SUBJECTIVE Patient seen and examined. severe anemia History Obtained From:Pt Stated Pt states he was feeling dizzy and lightheaded "like I was going to pass out, I knew something was wrong this morning". Went to [facility] ER THEN [place] [facility] he was found to have severe anemia of 5.7 hemoglobin Patient had missed dialysis because of left upper arm AV fistula infiltration. On August 06, 2012 and was due for hemodialysis even today and missed the hemodialysis and chronic hem odialysis unit at [facility] under Dr. Cook. Patient was recently admitted with MSSA bacteremia which is already resolved HISTORY OF PRESENT ILLNESS Nephrology consulted for evaluation and management of END-stage renal [facility] AC[facility], Severe Associated with fluid [...] W/ EGD; Surgeon: John Singleton MD; Location: [facility]; Se rvice: Gastroenterology; Laterality: N/A; Av fistula placement 05/06/2012 Procedure: AV FISTULA; Surgeon: Oskar Meyer MD; Location: [facility]; Service: Vascul ar; Laterality: Left; Left arm possible right Unlisted procedure arthroscopy shoulder rt , ligaments Knee arthroscopy 07/07/2012 Procedure: KNEE - ARTHROSCOPY; Surgeon: Favio Raza MD; Location: [facility]; S ervice: Orthopedics; Laterality: Right; After 1530 Catheter removal 07/07/2012 Procedure: DIALYSIS CATHETER REMOVAL; Surgeon: Oskar Meyer MD; Location: [facility] [place] [facility]; Service: General; Laterality: Right; perm cath Dialysis fistula creation 07/07/2012 Procedure: DIALYSIS CATHETER INSERTION; Surgeon: Oskar Meyer MD; Location: [facility] PROCEDURE; Service: General; Laterality: Left; temporary dialysis catheter Av fistula repair 07/11/2012 Procedure: AV FISTULA GRAFT REPAIR/REVISION; Surgeon: Oskar Meyer MD; Location: [facility] OR; Service: Vascular; Laterality: Left; Superficialization of brachiobasilic fistula and right IJ perm cath insertion Dialysis fistula creation 07/11/2012 Procedure: DIALYSIS CATHETER INSERTION; Surgeon: Oskar Meyer MD; Location: [facility]; Service: Vascular; Laterality: Left; removed [...] BIOLOGICAL; 2 STEP KIDSUNEMPLOYED BEFORE WORKED AT [employer] [facility] [employer] NONE ETOH QUIT 15 YEARS AGODRUGS: quit [...] bicarbonate 50 mEq Intravenous Once vitamin B llottrg-R-qwmen acid 1 tablet Oral Daily DISCONTD: epoetin [...] PROCEDURE I met this patient in the Engine Repairer holding room. I had a discussion with [...] continue maintenance hemodialysis Saturday and Saturday. At [facility] HD UNIT UNDER DR COOK [...] 08/08/121844 Date of Service: 08/08/121844 Status: Signed Almond Paste Mixer: Chela Varela [facility] (Pharmacist) Clinical Pharmacy Note - Renal Dose Adjustment Enrique Potter 47 y.o. male Ht Readings from Last 1 Encounters: 08/08/12 1.702 m (5' 7") Wt Readings from Last 1 Encounters: 08/08/12 79.833 kg (176 lb) CREATININE Date Value Range Status 08/08/2012 6.51* 0.70 - 1.30 mg/dL Final Testing performed at [facility];[address] [place] [address];[place] [address] ESRD on HD Pharmacy to renally adjust medications per Dr. Colbert Plan: No current medications will require renal dose adjustment for HD. Pharmacy will continue to follow and adjust as appropriate. Pharmacist: Chela Varela 08/08/2012 6:43 PM documente d in this encounter Plan of [...] + + | 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HCC) Type II or unspecified type diabetes | | mellitus with renal manifestations, not stated as uncontrolled | + + | Secondary hyperparathyroidism (of renal origin) | + + documented in this encounter
--- OUTSIDE RECORDS SUMMARY | ~2019-05-20 | XMS | Encounter Summary ---
Demographics + + + | Address | [address] | | | [place] [address] | + + + | Home Phone [...] Team Providers + +------+ + | Care Financial Reporting Specialist Name | Role | Phone | + +------+ + | Andry Deng DO | PCP | | + +------+ + Encounter Details +--------+ + + + + | Date | Type | Department | Care Team | Description | +--------+ + + + + | 07/07/ | Orders Only | [facility] | Oskar Meyer MD | | | 2012 | | [facility] | [address] | | | | | [address] | [place], [place] | | | | | [address] | [address] | | | | | [place], [place] | [phone] | | | | | [address] | | | | | | [phone] | | | +--------+ + + + [...] + | CULTURE, URINE | Routin | 07/10/2012 | | Results for this | | | e | 10:53 AM | | procedure are in the | | | | PST | | results section. | + +--------+ + + + | CELL COUNT, BODY | Routin | 07/07/2012 | | Results for this | | FLUID | e | 6:39 PM | | procedure are in the | | | | PST | | results section. | + +--------+ + + + | CULTURE, BODY FLUID, | Routin | 07/07/2012 | | Results for this | | STERILE, SMEAR, | e | 6:39 PM | | procedure are in the | | WITH ANAEROBES | | PST | | results section. | + +--------+ + + + | HISTORICAL | Routin | 07/07/2012 | | Results for this | | MICROBIOLOGY RESULT | e | 4:20 PM | | procedure are in the | | | | PST | | results section. | + +--------+ + + + | CULTURE, BODY FLUID, | STAT | 07/06/2012 | | Results for this | | STERILE, SMEAR, | | 11:09 PM | | procedure are in the | | WITH ANAEROBES | | PST | | results section. | + +--------+ + + + | CRYSTAL | STAT | 07/06/2012 | | Results for this | | IDENTIFICATION, BODY | | 11:08 PM | | procedure are in the | | FLUID | | PST | | results section. | + +--------+ + + + | CULTURE, BODY FLUID, | STAT | 07/06/2012 | | Results for this | | STERILE, SMEAR, | | 11:08 PM | | procedure are in the | | WITH ANAEROBES | | PST | | results section. | + +--------+ + + + documented in this encounter Results Culture, Urine (07/10/2012 10:53 AM PST) + + | Specimen | + + | | + + + + + | Narrative | Performed At | + + + | Specimen Description CLEAN CATCH URINE | EXTERNAL LAB | | Testing performed at | | | [facility];[address];[place] [address] CULTURE | | | <10,000 CFU/ML MIXED GRAM POSITIVE AND GRAM NEGATIVE | | | POWER NO SUSCEPTIBILITY TO FOLLOW | | | Testing performed at [facility], [address] [facility], | | | [place] [address] REPORT STATUS | | | 07/12/2012 FINAL | | + + + + +---------+ + + | Performing | Address | City/State/Zipcode | Phone Number | | Organization | | | | + +---------+ + + | EXTERNAL LAB | | | | + +---------+ + + Culture, Body Fluid, Sterile, Smear, with Anaerobes (07/07/2012 6:39 PM PST) + + | Specimen | + + | | + + + + + | Narrative | Performed At | + + + | Specimen Description SYNOVIAL FLUID R KNEE | EXTERNAL LAB | | Testing performed at | | | [facility];[address];[place] [address] GRAM STAIN | | | 2+ WBC'S SEEN | | | NO ORGANISMS SEEN | | | Testing performed at [facility];[address];[place] [address] | | | CULTURE 1+ STAPHYLOCOCCUS | | | AUREUSAbnormal | | | Testing performed at [facility], [address], [place] | | | [address] REPORT STATUS 07/11/2012 | | | FINAL Organism STAPHYLOCOCCUS | | | AUREUS Suscepibility for - STAPHYLOCOCCUS AUREUS Clindamycin | | | RESISTANT Resistant Erythromycin | | | RESISTANT Resistant Gentamicin | | | SUSCEPTIBLESensitive Oxacillin | [...] | | | + +---------+ + + Cell Count, Body Fluid (07/07/2012 6:39 PM PST) + + | Specimen | + + | | + + + + + | Narrative | Performed At | + + + | FLUID TYPE SYNOVIAL FLUID | EXTERNAL LAB | | Testing performed at [facility] [address] COLOR | | | PALE YELLOW Testing performed | | | at [facility];[place] [address] APPEARANCE | | | CLOUDY Testing performed at [facility];[address] [place] [address] | | | Bl;[place] [address] RBC'S | | | [address] Testing performed at [facility];[address] [place] [address];[place], [place] | | | [address] TOTAL NUCLEATED CELLS [address] | | | Testing performed at [facility];[address] [place] [address];[place] [address] NEUTROPHILS | | | 100 Testing performed | | | at [facility];[address] [place] [address];[place] [address] CELLS COUNTED | | | 100 Testing performed at [facility];[address] | [address];[place] [address] | | + + + + +---------+ + + | Performing | Address | City/State/Zipcode | Phone Number | | Organization | | | | + +---------+ + + | EXTERNAL LAB | | | | + +---------+ + + HISTORICAL MICROBIOLOGY RESULT (07/07/2012 4:20 PM PST) + + | Specimen | + + | | + + + + + | Narrative | Performed At | + + + | Specimen Description OTHER DIALYSIS CATHETER | EXTERNAL LAB | | TIP Testing | | | performed at [facility];[address];[place] [address] CULTURE | | | GREATER THAN FIFTEEN COLONY FORMING | | | UNITS OF STAPHYLOCOCCUS AUREUSAbnormal | | | Testing performed at [facility], [address] | | | [place] [address] REPORT STATUS | | | 07/10/2012 FINAL Organism | | | STAPHYLOCOCCUS AUREUS Suscepibility for - STAPHYLOCOCCUS AUREUS | | | Clindamycin RESISTANT Resistant | | | Erythromycin RESISTANT Resistant Gentamicin | | | SUSCEPTIBLESensitive Oxacillin | [...] | | + +---------+ + + Culture, Body Fluid, Sterile, Smear, with Anaerobes (07/06/2012 11:09 PM PST) + + | Specimen | + + | | + + + + + | Narrative | Performed At | + + + | Specimen Description SYNOVIAL FLUID LEFT ANKLE | EXTERNAL LAB | | Testing performed | | | at [facility];[address] [place] [address] GRAM STAIN | | | WBC'S SEEN NO ORGANISMS SEEN ON CYTOSPIN SLIDE | | | PHONED TO DR TRAN | | | AT 0045 BY LJ READBACK | | | Testing performed at [facility];[address] [place] [address] | | | CULTURE NO GROWTH 4 DAYS | | | Testing performed at | | | [facility], [address] [place] [address] REPORT STATUS | | | 07/11/2012 FINAL | | + + + + +---------+ + + | Performing | Address | City/State/Zipcode | Phone Number | | Organization | | | | + +---------+ + + | EXTERNAL LAB | | | | + +---------+ + + Crystal Identification, Body Fluid (07/06/2012 11:08 PM PST) + + | Specimen | + + | | + + + + + | Narrative | Performed At | + + + | FLUID CRYSTALS PRESENT CONSISTENT | EXTERNAL LAB | | WITH MONOSODIUM URATES SENT FOR PATH CONSULT Testing performed at | | | [facility];[address];[place] [address] | | + + + + +---------+ + + | Performing | Address | City/State/Zipcode | Phone Number | | Organization | | | | + +---------+ + + | EXTERNAL LAB | | | | + +---------+ + + Culture, Body Fluid, Sterile, Smear, with Anaerobes (07/06/2012 11:08 PM PST) + + | Specimen | + + | | + + + + + | Narrative | Performed At | + + + | Specimen Description SYNOVIAL FLUID RIGHT KNEE | EXTERNAL LAB | | Testing performed | | | at [facility];[address] [place] [address];[place] [address] GRAM STAIN | | | WBC'S SEEN GRAM NEGATIVE COCCI ON CYTO SPIN SLIDE | | | PHONED TO | | | CHELSEA AT 0045 BY LJ READBACK | | | REVIEW OF SMEAR BY MICROBIOLOGY SHOWS THE FOLLOWING: NO | | | ORGANISMS SEEN | | | Testing performed at [facility], [facility] [address], [place] | | | [address] CULTURE 1+ | | | STAPHYLOCOCCUS AUREUS SUSCEPTIBILITY TO FOLLOWAbnormal | | | Testing performed at [facility], [facility] | | | [place] [address] REPORT STATUS | | | 07/10/2012 FINAL Organism | | | STAPHYLOCOCCUS AUREUS Suscepibility for - | | | STAPHYLOCOCCUS AUREUS Clindamycin | | | RESISTANT Resistant Erythromycin RESISTANT | | | Resistant Gentamicin | | | SUSCEPTIBLESensitive Oxacillin | [...]
--- OUTSIDE RECORDS SUMMARY | ~2019-05-20 | XMS | Encounter Summary ---
Demographics + + + | Address | [address] | | | [place] [address] | + + + | Home Phone | | + + + | Preferred Language | Unknown | + + + | Marital Status | Unknown | + + + | Confucianist Affiliation | 1076 | + + + | Race | Unknown | + + + | Ethnic Group | Unknown | + + + Author + + + | Author | [facility] | | | and [place] | + + + | Organization | [facility] | | [...] Team Providers + +------+ + | Care Product Consultant Name | Role | Phone | + +------+ + | Andry Deng DO | PCP | | + +------+ + Encounter Details +--------+ + + + + | Date | Type | Department | Care Team | Description | +--------+ + + + + | 04/02/ | Orders Only | [facility] | Conversion | | | 2015 | | NEPHROLOGY [place] | Transaction, | | | | | [address] [facility] | Provider Unknown | | | | | [place] | | | | | | [address] | (Fax) | | | | | [phone] | | | +--------+ + + + [...]
--- OUTSIDE RECORDS SUMMARY | ~2019-05-20 | XMS | Encounter Summary ---
Demographics + + + | Address | [address] | | | [place] [address] | + + + | Home Phone | | + + + | Preferred Language | Unknown | + + + | Marital Status | Unknown | + + + | Advent Affiliation | 1076 | + + + | Race | Unknown | + + + | Ethnic Group | Unknown | + + + Author + + + | Author | [facility] | | | and [place] | + + + | Organization | [facility] | | | and [place] | + [...] Team Providers + +------+ + | Care Exceptional Student Education Teacher Name | Role | Phone | + +------+ + PCP | Unavailable | + +------+ + Encounter Details +--------+ + + + + | Date | Type | Department | Care Team | Description | +--------+ + + + + | 03/06/ | Abstract | [place] [facility] | DATA MIGRATION [facility] | | | 2011 | | Conversion Location | SR | | | | | [phone] | | | +--------+ + + + [...] | Blood Pressure | 120/72 | 06/06/2010 12:00 AM | | | | | PST | | + + + + + | Pulse | - | - | | + + + + + | Temperature | - | - | | + [...] | 86.6 kg (191 lb) | 06/06/2010 12:00 AM | | | | | PST | | + + + + + | Height | 171.5 cm (5' 7.5") | 04/26/2010 12:00 AM | | | | | PDT | | + + + + + | Body Mass Index | 29.47 | 04/26/2010 12:00 AM | | | | | PDT | | + + + + + documented in this encounter Plan of Treatment Not on filedocumented as of this encounter Procedures + +--------+ + + + | Procedure Name | Priori | Date/Time | Associated Diagnosis | Comments | | | ty | | | | + +--------+ + + + | ENDOSCOPY, COLON, | Routin | 07/03/2010 | | Results for this | | DIAGNOSTIC | e | 12:00 AM | | procedure are in the | | | | PST | | results section. | + +--------+ + + + documented in this encounter Results ENDOSCOPY, COLON, DIAGNOSTIC (07/03/2010 12:00 AM PST) + + | Specimen | + + | | + + + + + | Narrative | Performed At | + + + | | | + + + documented in this encounter Visit Diagnoses Not on filedocumented in this encounter
--- OUTSIDE RECORDS SUMMARY | ~2019-05-20 | XMS | Encounter Summary ---
Demographics + + + | Address | [address] | | | [place] [address] | + + + | Home Phone | | + + + | Preferred Language | Unknown | + + + | Marital Status | Unknown | + + + | Zoroastrianism Affiliation | 1076 | + + + | Race | Unknown | + + + | Ethnic Group | Unknown | + + + Author + + + | Author | [facility] | | | and [place] | + + + | Organization | [facility] | | [...] Team Providers + +------+ + | Care Bookkeeper Assistant Name | Role | Phone | + +------+ + | Andry Deng DO | PCP | | + +------+ + Encounter Details +--------+ + + + + | Date | Type | Department | Care Team | Description | +--------+ + + + + | 04/05/ | Orders Only | [facility] | Conversion | | | 2013 | | INFECTIOUS DISEASE | Transaction, | | | | | [address] | Provider Unknown | | | | | [place], [place] | [phone] | | | | | [address] | | | | | | [phone] | | | +--------+ + + + [...] + + + | RED CELL | 3.55 | 10 | EXTERNAL | | | COUNT | | | LAB | | + +-------+ + + + | Hgb | 10.8 | g/dL | EXTERNAL | [...]
--- OUTSIDE RECORDS SUMMARY | ~2019-05-20 | XMS | Encounter Summary ---
Demographics + + + | Address | [address] | | | [place] [address] | + + + | Home Phone | | + + + | Preferred Language | Unknown | + + + | Marital Status | Unknown | + + + | Denominational Affiliation | 1076 | + + + [...] Team Providers + +------+ + | Care Plastic Worker Name | Role | Phone | + +------+ + PCP | Unavailable | + +------+ + Encounter Details +--------+ + + + + | Date | Type | Department | Care Team | Description | +--------+ + + + + | 07/08/ | Hospital | [facility] | Conversion | Pain | | 2013 | Encounter | CONVERSION [address] | Transaction, | | | | | [address] | Provider Unknown | | | | | [place], [place] | | | | | | [address] | (Fax) | | | | | [phone] | | | +--------+ + + + [...] XR CHEST 1 VIEW | Routin | 10/03/2012 | | Results for this | | | e | 2:32 AM | | procedure are in the | | | | PDT | | results section. | + +--------+ + + + documented in this encounter Results XR Chest 1 Vw (10/03/2012 2:32 AM PDT) + + | Specimen | + + | | + + + + + | Narrative | Performed At | + + + | This is a non-reportable procedure without a radiologist report and | | | is used for image storage only | | + + + + + | Procedure Note | + + | Khalif Palm Cee - 02/06/2019 10:59 AM PDT This is a non-reportable procedure | | without a radiologist report and isused for image storage only | + + documented in this encounter Visit Diagnoses + + | Diagnosis | + + | Pain Generalized pain | + + documented in this encounter"
--- OUTSIDE RECORDS SUMMARY | ~2019-05-20 | XMS | Encounter Summary ---
Demographics + + + | Address | [address] | | | [place] [address] | + + + | Home Phone [...] Author + + + | Author | [facility] | | | and [place] | + + + | Organization | [facility] | | | [...] Team Providers + +------+ + | Care Track Leader Name | Role | Phone | + +------+ + | Andry Deng DO | PCP | | + +------+ + Encounter Details +--------+ + + + + | Date | Type | Department | Care Team | Description | +--------+ + + + + | 05/12/ | Orders Only | [facility] | Conversion | | | 2013 | | INFECTIOUS DISEASE | Transaction, | | | | | [address] | Provider Unknown | | | | | [place], [place] | [phone] | | | | | [address] | | | | | | [phone] | | | +--------+ + + + [...] + + + | RED CELL | 4.44 | 10 | EXTERNAL | | | COUNT | | | LAB | | + + + + + + | Hgb | 13.0 (A) | 13.5 - 18.0 [...]
--- OUTSIDE RECORDS SUMMARY | ~2019-05-20 | XMS | Encounter Summary ---
Demographics + + + | Address | [address] | | | [place] [address] | + + + | Home Phone [...] Team Providers + +------+ + | Care [employer] Law And Policy Professor Name | Role | Phone | + +------+ + PCP | Unavailable | + +------+ + Encounter Details +--------+ + + + + | Date | Type | Department | Care Team | Description | +--------+ + + + + | 05/06/ | Hospital | [facility] | Oskar Meyer MD | ESRD (end stage | | 2012 | Encounter | [facility] | [address] | renal disease) ([facility]) | | | | [address] | [place], [place] | | | | | [place], [place] | [address] | | | | | [address] | [phone] | | | | | [phone] | | | +--------+ + + + [...] pad to wipe | | 0 | //20 | | | Benzocaine-Isopropyl | area as [...] | 0 | 20 | | | valerate (VALISONE) | to scalp once or | | | 12 | | | 0.1 % lotion | twice a day | | | | | + + + +---------+ + + | Blood Glucose | Use as directed by | | 0 | / | | | Monitoring Suppl | physician [...] Progress Notes Conversion Transaction, Provider Unknown - 05/06/2012 5:17 PM PSTFormatting of this note m ight be different from the original. Progress Notes by Vaishnavi Robertson RN at 05/06/121716 Author: Vaishnavi Robertson RN Service: (none) Author Type: Registered Nurse Filed: 05/06/121717 Date of Service: 05/06/121716 Status: Signed City Distribution Clerk: Vaishnavi Robertson RN (Registered Nurse) Reviewed discharge instructions and prescriptions with patient and family. Patient and fami ly verbalized understanding and discharge instructions were signed. All belongings taken wit h patient. Home via private vehicle with family. HARDIK Conrad onver quique Transaction, Provider Unknown - 05/06/2012 4:54 PM PST Progress Notes by Kelley Toussaint RPH at 05/06/121653 Author: Kelley Toussaint RPH Service: (none) Author Type: Pharmacist Filed: 05/06/121653 Date of Service: 05/06/121653 Status: Signed City Distribution Clerk: Kelley Toussaint RPH (Pharmacist) Renal Dosing Monitoring: Enrique Potter 47 y.o. male Pharmacy dosing for renal function per Dr. Meyer SCr 5.76, est. CrCl = 16 ml/min Plan per protocol: Medications dosed appropriately for current renal function. Pharmacy will continue monitoring patient for appropriate dosing per renal function. 05/06/2012 4:53 PM Pharmacist: Kelley Toussaint onver quique Transaction, Provider Unknown - 05/06/2012 2:01 PM PST Progress Notes by Vaishnavi Mccall RN at 05/06/121400 Author: Vaishnavi Mccall RN Service: (none) Author Type: Registered Nurse Filed: 05/06/121403 Date of Service: 05/06/121400 Status: Signed City Distribution Clerk: Vaishnavi Mccall RN (Registered Nurse) Passed onto KDeidra INSTRUMENTATION ENGINEER that HD cath was accessed by Dr. Terry. Reminder to INSTRUMENTATION ENGINEER that Dr. Terry will need to re-heparinize the HD cath or the HD RN will need to be called to heparinize li ne. Dr. Terry stated he will makes sure PIV works then will heparinize. Vaishnavi Mccall RN 05/06/2012 2:04 PM docume nted in this encounter Plan of Treatment Not on filedocumented as of this encounter Procedures + +--------+ + + + | Procedure Name | Priori | Date/Time | Associated Diagnosis | Comments | | | ty | | | | + +--------+ + + + | MRSA NAAT | Timed | 05/06/2012 | | Results for this | | | | 1:50 PM | | procedure are in the | | | | PST | | results section. | + +--------+ + + + documented in this encounter Results MRSA NAAT (05/06/2012 1:50 PM PST) + + | Specimen | + + | | + + + + + | Narrative | Performed At | + + + | [facility] | EXTERNAL LAB | | Testing performed at [facility] [place] [place];[address] [place] [address];[place] [address] MRSA PCR | | | NEGATIVE Testing performed at | | | [address];[place] [address] | | + + + + +---------+ [...]
--- OUTSIDE RECORDS SUMMARY | ~2019-05-20 | XMS | Encounter Summary ---
Demographics + + + | Address | [address] | | | [place] [address] | + + + | Home Phone [...] Team Providers + +------+ + | Care Boiler Washer Name | Role | Phone | [...] Unknown | | | | | [place], [place] | | | | | | [address] | (Fax) | | | | | [phone] | | | +--------+ + + + [...] EXTERNAL LAB | | Testing performed at [facility] [place] [place] [address];[place] [address] MRSA PCR | | | NEGATIVE Testing performed at | | | [facility];[address] [place] [address];[place] [address] | | + + + + +---------+ + + | Performing | Address | City/State/Zipcode | Phone Number | | Organization | | | | + +---------+ + + | EXTERNAL LAB | | | | + +---------+ + + documented in this encounter Visit Diagnoses Not on filedocumented in this encounter"
--- OUTSIDE RECORDS SUMMARY | ~2019-05-20 | XMS | Encounter Summary ---
Demographics + + + | Address | [address] | | | [place] [address] | + + + | Home Phone | | + + + | Preferred Language | Unknown | + + + | Marital Status | Unknown | + + + | Taoism Affiliation [...] Team Providers + +------+ + | Care Sound Recording Technician Name | Role | Phone | + +------+ + PCP | Unavailable | + +------+ + Encounter Details +--------+ + + + + | Date | Type | Department | Care Team | Description | +--------+ + + + + | 02/15/ | Hospital | [facility] | Katie, | ESRD (end stage | | 2017 - | Encounter | [facility] | MD Frank [address] | renal disease) on | | | | CARE FLOOR [phone] | dialysis (HCC); | | 02/19/ | | [address] | [place] [address] | Corneal ulcer, | | 2017 | | [place], [place] | [phone] | right; Acidemia; | | | | [id number] | | Hyperkalemia; Rash | | | | [phone] | | | +--------+ + + + [...] + + + | Blood Pressure | 152/78 | 02/19/2017 6:15 PM | | | | | PDT | | + + + + + | Pulse | 83 | 02/19/2017 6:15 PM | | | | | PDT | | + + + + + | Temperature | 36.6 C (97.8 F) | 02/19/2017 6:15 PM | | | | | PDT | | + + + + + | Respiratory Rate | 18 | 02/19/2017 6:15 PM | | | | | PDT | | + + + + + | Oxygen Saturation | - | - | | + + + + + | Inhaled Oxygen | - | - | | | Concentration | | | | + + + + + | Weight | 74.6 kg (164 lb 7.4 | 02/19/2017 6:15 PM | | | | oz) | PDT | | + + + + + | Height | 170.2 cm (5' 7") | 02/19/2017 6:15 PM | | | | | PDT | | + + + + + | Body Mass Index | 25.76 | 02/19/2017 6:15 PM | | | | | PDT | | + + + + + documented in this encounter Discharge Summaries Khanh Rangel MD - 02/19/2017 11:23 AM PDT Discharge Summaries by Khanh Rangel MD at 02/19/17 1123 Author: Khanh Rangel MD Service: Hospitalist Author Type: Physician Filed: 02/19/17 1137 Date of Service: 02/19/17 112 Status: Signed [place]: Khanh Ragnel MD (Physician) [facility] Service: Hospitalist Discharge Summary Date of Admission: 02/15/2017 Date of Discharge: 02/19/2017 Discharge Provider: Khanh Rangel MD Treatment Team: Consulting Physician: Fela Mayberry MD Admitting Provider: Frank Wilson MD Discharge Diagnoses: Principal Problem: ESRD (end stage renal disease) on dialysis (HCC) Active Problems: 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) HTN (hypertension) Hyponatremia Eczema of both upper extremities Psoriasis-like skin disease Resolved Problems: Hyperkalemia Procedures: * No surgery found * BRIEF HISTORY OF PRESENTATION: Carol Potter is a 51 y.o. male who per H and P:Patient is a 51 year old malewith past medical history of Hypertension, HLD, ESRD on HD MWF, DM Type 2, Hypothyroidism and Asthma who was admitted due to hyperkalemia and missed hemodialysis for more than a week. Apparent ly he went for his HD last week but he was found to have severe skin lesions involving the f istula site which was concerning for infection. He could not follow up with Dr Timmons and even tually went to [facility] and he was then transferred to [facility] for management. His labs showed stable CBC but BMP revealed K of 5.9 and a Creatinine of 13. Nephrology service s was consulted and Dr. Mayberry planned to start HD via IJ catheter followed by a tunneled ca theter placement till further diagnosis and treatment of skin lesions were arranged. The ski n findings were consistent with severe atopic dermatitis and eczema. He was started on IV So lumedrol and case was discussed [facility]. The skin lesion pictures were forwa rded to Dr. Mitchell party plan sales consultant from Dermatology services who agreed with steroid use but also re commended to taper off systemic steroids quickly and start topical steroids Betamethasone f or local applications. He is started on Flucinonide CreamTID and Steroids were changed to or al Prednisone to taper in 7 to 10 days. ATunneled dialysis catheter was placed today by Dr Renato Garnica and if remains stable after hemodialysis then discharge in AM. HOSPITAL COURSE: The issues during the hospital stay are per previous note: End Stage Renal Disease on Hemodialysis: Nephrology services is on board and resumed hemod ialysis via femoral dialysis. S/P Tunneled dialysis catheter placement today by Dr. Garnica wit hout any complications. Dr. Mayberry is managing dialysis, to continue per scheduled MWF and f ollow closely. Continue dialysis on an outpatient basis. I discussed Dr. Mayberry briefly today. Patient is to get dialysis tomorrow. Hyponatremia: Mild and multifactorial, due to hyperglycemia from steroid use and pseudohypo natremia. The corrected Na level is around 132, will continue Insulin, Hemodialysis and carlos tor. Diabetes Mellitus Type 2: Blood sugars were elevated, likely due to steroid use. Will need low dose Lantus at night and give Humalog per SS while on steroids and monitor. Eczema of both Upper Extremities / Rash: This was likely atopic dermatitis, responding to Steroids. The case was discussed in detail with Dermatology services and pictures were fo rwarded to Dr. Mitchell who agreed with steroid use but also recommended a quick taper of oral Prednisone over the next 7 to 8 days. She recommended topical high potency steroids Betamet hasone for local applications TID but since it was no availale at our pharmacy he was starte d on Flucinonide TID. He will need a prescription of Prednisone to taper in a week and Betam ethasone for local application TID for one week then BID and follow up with his PCP for cesar tional recommendations. Will also continue oral Zyrtec, Pepcid and monitor progress. Hypertension: BP remains stable, to continue Amlodipine and Coreg as scheduled and monitor hemodynamics. Past Medical History Diagnosis Date Abdominal pain, right upper quadrant 04/13/2012 Amphetamine and other psychostimulant dependence, continuous 04/02/2012 Anemia Anemia due to blood loss 04/30/2012 Asthma pt not using inhaler any more, no symptoms AV fistula (HCC) lt arm 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 Chronic obstructive asthma with exacerbation (HCC) 10/27/2013 Chronic systolic heart failure ([facility]) 09/10/2016 Diabetes mellitus type I ([facility]) Dialysis patient ([facility]) DVT (deep venous thrombosis) ([facility]) x3 GI bleed 04/30/2012 from coumadin Gout Hyperkalemia 11/09/2013 Hyperlipidemia Hyperphosphatemia 05/24/2012 Hypertension Hyponatremia 09/08/2016 Knee pain, right 07/06/2012 MSSA (methicillin susceptible Staphylococcus aureus) infection 04/11/2012 Neuromuscular disorder ([facility]) neuropathy 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[facility]) 05/01/2012 Rash and nonspecific skin eruption 04/03/2012 SOB (shortness of breath) 10/27/2013 Thyroid disease Walker as ambulation aid Past Surgical History Procedure Laterality Date AV FISTULA PLACEMENT Right 02/09/2014 Procedure: AV FISTULA; Surgeon: Oskar Meyer MD; Location: [facility] MAIN OR; Service: Vascula r; Laterality: Right; AV FISTULA PLACEMENT Left 05/06/2012 Procedure: AV FISTULA; Surgeon: Oskar Meyer MD; Location: [facility] MAIN OR; Service: Vascula r; Laterality: Left; Left arm possible right AV FISTULA REPAIR Left 07/11/2012 Procedure: AV FISTULA - GRAFT REPAIR/REVISION; Surgeon: Oskar Meyer MD; Location: [facility] IN OR; Service: Vascular; Laterality: Left; Superficialization of brachiobasilic fistula and right IJ perm cath insertion CATHETER REMOVAL Right 07/07/2012 Procedure: DIALYSIS CATHETER - REMOVAL; Surgeon: Oskar Meyer MD; Location: [facility] BEDSIDE P ROCEDURE; Service: General; Laterality: Right; perm cath COLONOSCOPY WITH EGD N/A 05/01/2012 Procedure: COLONOSCOPY W/ EGD; Surgeon: John Singleton MD; Location: [facility] ENDOSCOPY; Ser vice: Gastroenterology; Laterality: N/A; DIALYSIS FISTULA CREATION Left 07/11/2012 Procedure: DIALYSIS CATHETER - INSERTION; Surgeon: Oskar Meyer MD; Location: [facility] MAIN OR ; Service: Vascular; [...] Location: [facility] MAIN OR; rvice: Orthopedics; Laterality: [...] Indications: Pain Past Week at Unknown time allopurinol (ZYLOPRIM) 100 MG tablet Take 100 mg by mouth daily. Indications: Primary G out 02/14/2017 at Unknown time amLODIPine (NORVASC) 10 MG tablet Take 10 mg by mouth daily. 02/14/2017 at Unknown jb e b complex-vitamin c-folic acid (NEPHRO-THU) 0.8 MG TABS tablet Take 1 tablet by mouth daily. 30 tablet 11 02/15/2017 at Unknown time carvedilol (COREG) 3.125 MG tablet Take 3.125 mg by mouth 2 (two) times daily with meal s. 02/15/2017 at Unknown time Cholecalciferol 2000 UNITS TABS Take 1 tablet by mouth daily. 02/15/2017 at Unknown ti me levothyroxine (SYNTHROID) 75 MCG tablet Take 75 mcg by mouth every morning before break fast. Indications: Underactive Thyroid 02/15/2017 at Unknown time ondansetron (ZOFRAN-ODT) 8 MG disintegrating tablet 02/15/2017 at Unknown time sevelamer (RENVELA) 800 MG tablet take 3 tablets by mouth three times a day WITH MEALS AND 1 TABLET WITH SNACKS 300 tablet 5 02/15/2017 at Unknown time sodium bicarbonate 650 MG tablet Take 1,300 mg by mouth 2 (two) times daily. 017 at Unknown time albuterol (PROVENTIL HFA) 108 (90 BASE) MCG/ACT inhaler Inhale 2 puffs into the lungs e very 4 (four) hours as needed for Wheezing. (Patient taking differently: Inhale 2 puffs into the lungs every 4 (four) hours as needed for Wheezing. Took last night) 1 Inhaler 1 Taking budesonide-formoterol (SYMBICORT) 160-4.5 MCG/ACT inhaler Inhale 2 puffs into the lungs 2 (two) times daily. 2 each 0 fluticasone-salmeterol (ADVAIR DISKUS) 250-50 MCG/DOSE Inhale 1 puff into the lungs 2 ( two) times daily. 60 each 0 Unknown at Unknown time HYDROcodone-acetaminophen (NORCO) 5-325 MG per tablet 10/07/2016 at Unknown time montelukast (SINGULAIR) 10 MG tablet Take 1 tablet by mouth nightly. 30 tablet 0 Taking DISCHARGE EXAM Vital Signs: BP 165/87 (BP Location: Left upper arm) | Pulse 85 | Temp 97.9 F (36.6 C) (Oral) | R cici 18 | Ht 1.702 m (5' 7") | Wt 74.6 kg (164 lb 7.4 oz) | SpO2 97% | BMI 25.76 kg/m General Appearance: Encounter patient in room 6626 with in pulled out bed and Isrrael helm in room. No apparent distress. Conversive and appropriate to place and person. HEENT: Normocephalic, atraumatic, pupils EOMI, PERRLA. Nose: no septal deviation or dischar ge noted. Ears: normal size, location, and contour. Throat dry and without exudates. NECK: is supple, full ROM, nontender. Chest: Left chest tunneled hemodialysis catheter is noted. LUNGS: relatively clear to auscultation bilaterally with no obvious wheezing, No rales or r honchi audible. HEART: S1S2, Regular rate and rhythm without murmurs, gallops or rubs. ABDOMEN: Bowel sound is normoactive, abdomen is soft, non-tender non-distended ,no mass pal pable. : Left groan IV access is without hematoma. EXTREMITIES:No lower extermity edema, Muscle strength adequate bilaterally. NEURO: Cranial Nerves 2-12 appears intact, Gait not tested, PSYCH: Alert, awake and Oriente d x3. SKIN: Multiple patches of white scaly nonerythematous papular rash is noted in various part s of his body including left nipple, right bicep, bilateral shins and left arm. DATA Recent Labs Lab 02/18/17 2156 02/17/1742502/16/1750102/15/172017 WBC -- 6.65 6.43 7.95 RBC -- 4.41 4.17* 4.53 HGB 12.7* 12.6* 12.3* 13.3 HCT 36.8* 38.5* 36.9* 39.6 MCV -- 87.2 88.3 87.4 MCH -- 28.6 29.4 29.3 MCHC -- 32.8 33.2 33.5 RDW -- 63.0* 62.1* 64.3* PLT -- 174 193 231 MPV -- 7.2 6.8 6.6 NEUTOPHILPCT -- -- 61.06 65.02 MONOPCT -- -- 5.62 5.53 Recent Labs Lab 02/19/1754302/16/1750102/15/172017 NA 131* < > 137 < > 134* K 5.0* < > 4.1 < > 5.9* CL 96* < > 105 < > 106 CO2 21* < > 12* < > 13* ANIONGAP 19 < > 24* < > 20 GLUF 383* < > 68 < > 82 BUN 73* < > 117* < > 118* CREATININE 8.1* < > 13.2* < > 13* BCR 9 < > 9 < > 9 CA 8.4* < > 7.5* < > 7.7* ALB -- -- 3.8 -- 3.9 GLOB -- -- 4.0 -- 4.7 PROT -- -- 7.8 -- 8.6* BILITOT -- -- 0.6 -- 0.7 ALT -- -- 59 -- 70* AST -- -- 29 -- 35 EGFR 7* < > 4* < > 4* PHOS -- -- 7.5* -- -- MG -- -- 3.1* -- -- BNP -- -- -- -- 253* < > = values in this interval not displayed. Recent Labs Lab 08/27/17 0426 HGBA1C 5.5 LABGLYC 111 Recent Labs Lab 02/15/172017 APTT 29 INR 1.0 No results for input(s): TSH, T3FREE, FREET4 in the last 168 hours. Recent Labs Lab 02/15/172017 CKTOTAL 240 CKMBINDEX 5.5 HDL CHOL Date Value Ref Range Status 10/09/2016 51 >40 mg/dL Final CHOLESTEROL Date Value Ref Range Status 10/09/2016 96 <200 mg/dL Final Ir Dialysis Tunneled Cath Insert Result Date: 02/18/2017 IR DIALYSIS TUNNELED CATHETER INSERTION dated 02/18/2017 1:17 PM CLINICAL DATA: End stage re nal disease with brachial basilic right upper extremity fistula status post brachiocephalic/ subclavian stent placement. Development of identification of the skin overlying the fistula. Difficult central access. Unsuccessful attempted temporary left internal jugular central ve nous catheter. A left femoral temporary dialysis catheter was placed but is no longer workin g. Request for tunneled catheter. COMPARISON STUDIES: Venogram 09/11/2016 OPERATIONS: 1. Ult rasound guided left internal jugular central venous access. 2. Creation subcutaneous tunnel left anterior chest wall. 3. Placement tunneled hemodialysis catheter. 4. Central venogra m 5. Right brachiocephalic/subclavian venous angioplasty OFFICE SYSTEM ANALYST: Jimenez Garnica MD, PhD, RPVI PROCEDURE: Informed consent was obtained from the patient. Continuous cardiac mo nitoring was performed throughout the procedure. Sedation time: 80 minutes Fluoroscopy time: 9.5 minutes Radiation dose: 281 mGy air kerma Sedation: 2.5 mg Versed IV, 175 mcg Fentanyl IV Antibiotic: 900 mg clindamycin IV While supine on the fluoroscopy table, the patient's n gray and chest were prepped and draped in a sterile fashion. Lidocaine was used for local an esthesia after which percutaneous ultrasound-guided access was obtained via the left interna l jugular vein using micropuncture technique. The microwire repeatedly deflected into the r ight brachiocephalic/subclavian stent and would not pass into the SVC. An 8 [place]ander sheath wa s placed and a central venogram was performed which demonstrated a brachiocephalicA/SVC conf luence focal stenosis. Using multiple obliquities, the catheter and wire were successfully p assed beyond the stent into the inferior vena cava. Patient was heparinized An 10 [place]ander she ath was placed. A wire and catheter were then directed back into right brachiocephalic/subcl deb stent. A 12 mm angioplasty balloon was inserted and easily passed into the stent. The balloon was inflated but watermelon seeded in both directions. With the balloon inflated, it appeared that the wire may have gone through a strut. Decision was made to pursue no furthe r right brachiocephalic/subclavian intervention and proceed with placement of the dialysis c atheter. Site on the anterior chest wall was then selected for catheter insertion. This sit e was anesthetized with 1% lidocaine and a small incision was made. A 14.5-[place]ander Nanosphererom e 23 cm tip to cuff hemodialysis catheter was then passed through the subcutaneous tissues i n an antegrade fashion to the access point on the neck using a tunneling device. A peel-taryn y introducer was then advanced from the internal jugular access point into the central venou s system under fluoroscopy visualization. A Glidewire was placed through the hemodialysis c atheter and then inserted through the peel-away introducer. The hemodialysis catheter was th en inserted through the peel-away introducer over the wire. Under fluoroscopy, the hemodial ysis catheter was positioned. Both ports were aspirated and flushed with saline to confirm p atency. The catheter was then charged with 5000 U/ml heparinized normal saline per protocol . Nylon suture was used for fixation of the catheter at the skin entry site. Dermabond was applied to close the venopuncture access site on the neck. Sterile dressings were applied. The patient tolerated the procedure well without complication. FINDINGS: The left internal jugular vein is widely patent. Ultrasound-guided access obtained. Central venogram demons trates a focal moderate stenosis at the confluence of the brachiocephalic veins and superior vena cava. The right brachiocephalic/subclavian stent as externally compressed at the clavi michelle. Neck and chest collaterals are noted. Venogram from the right subclavian vein demonstra trixie near occlusive stenosis of the stent. Fluoroscopy demonstrates the support wire for the dialysis catheter to be outside the stent struts. The hemodialysis catheter tip is present a t the upper right atrium. Both ports functioned normally and may be used for hemodialysis a ccess. 1. Successful placement of a tunneled right internal jugular central venous hemodialysis ca theter. Tip position confirmed and ready for immediate use. 2. In-stent stenosis and externa l compression of the right brachiocephalic/subclavian stent and brachiocephalic SVC confluen ce stenosis. Will plan to bring patient back in the near future for angioplasty via the fist pancho. Xr Chest 1 View Result Date: 02/16/2017 HISTORY: Evaluate tubes and lines. COMPARISON: 02/15/17. TECHNIQUE: AP portable film of the chest at 1240 hours FINDINGS: Heart size is normal. Lungs are clear. Left IJ Carlos cathet er extends along the lateral aspect of the aortic arch. This should be repositioned. No pneu mothorax. Left subclavian stent again noted. 1. Left IJ central line extends along the left lateral aspect of the aortic arch, curving inferior to the aortic arch. This is in abnormal position, and should be reoriented. This wa s called to the patient's nurse Tracey at 12:55 PM date of study. 2. No pneumothorax. Electr onically signed by Wilton Lentz MD on 02/16/2017 1:00 PM Xr Chest Ap Portable Result Date: 02/15/2017 CAROL POTTER XR CHEST 1 VIEW HISTORY: 51 years. Male. Shortness of breath. TECHNIQUE: Single portable anterior view of the chest was obtained. COMPARISON: 10/07/2016 FINDINGS: Vascular stent again visualized right lung apex that. The heart is normal in size. No pulmonary vascu lar congestion. No pneumothorax. No focal airspace disease or pleural effusion. 1. No acute process. Ir Guidance Vascular Access Us Result Date: 02/18/2017 This Point of Care (POC) ultrasound image has been reviewed and interpreted by the physicia n identified as the performing physician in the associated interpretation and report. PLAN Discharge to home with in stable condition. Code Status: Full Code No discharge procedures on file. [place]: [place] [address] [place] [address] In 1 week Fela Mayberry MD [address] [facility] [facility] [id number] In 1 week HD as scheduled. Medication List START taking these medications aspirin 81 MG EC tablet QTY: 30 tablet Refills: 0 Take 1 tablet by mouth daily for 30 days. Replaces: aspirin 81 MG tablet betamethasone valerate 0.1 % cream QTY: 30 g Refills: 0 Commonly known as: VALISONE Apply topically 2 (two) times daily for 7 days. predniSONE 20 MG tablet QTY: 20 tablet Refills: 0 Commonly known as: DELTASONE Take 0.5 tablets by mouth daily with breakfast for 8 days. Taper: 40 x 2 days, 30 x 2 days, 20 for 2 days, 10mg x 2 days, then stop. CHANGE how you take these medications albuterol [...] (HCC) Take 1 tablet by mouth daily. budesonide-formoterol 160-4.5 MCG/ACT inhaler QTY: 2 each [...] ESRD (end stage renal disease) on dialysis ([facility]) Commonly known as: RENVELA take 3 tablets by mouth three times a day WITH MEALS AND 1 TABLET WITH SNACKS sodium bicarbonate 650 MG tablet Refills: 0 You might also be taking other medications not listed above. If you have questions about an y of your other medications, talk to the person who prescribed them or your Primary Care Pro vider. STOP taking these medications aspirin 81 MG tablet Replaced by: aspirin 81 MG EC tablet Where to Get Your Medications You can get these medications from any pharmacy Bring a paper prescription for each of these medications aspirin 81 MG EC tablet betamethasone valerate 0.1 % cream predniSONE 20 MG tablet Discharge took 45 minutes, to include final examination, discussion of admission, and prepa ration of prescriptions, instructions for on-going care, follow-up and documentation of disc harge summary. Khanh Rangel MD 02/19/2017 Reji stratton in this encounter Medications at [...] | | | | | GLUCOSE SYSTEM) OGRGE | | | | | | + [...] Progress Notes Conversion Transaction, Provider Unknown - 02/19/2017 6:16 PM PDTFormatting of this note m ight be different from the original. Nurse Progress Note by Britta Hussein RN at 02/19/171815 Author: Britta Hussein RN Service: (none) Author Type: Registered Nurse Filed: 02/19/171815 Date of Service: 02/19/171815 Status: Signed [place]: Britta Hussein RN (Registered Nurse) Pt. being discharged home. Discharge instructions, education, and prescriptions were review ed with pt and family. Pt. verbalized understanding and had no further questions. Prescripti ons, education materials, and copies of After Visit Summary have been provided. Pt. left libia or via wheelchair to be transported home in private vehicle owned by family. VSS. No acute observations. Britta Hussein RN onver quique Transaction, Provider Unknown - 02/19/2017 5:39 PM PDT Case Management by Pamela Burch RN at 02/19/171738 Author: Pamela Burch RN Service: (none) Author Type: Registered Nurse Filed: 02/19/17 1743 Date of Service: 02/19/171738 Status: Signed [place]: Pamela Burch RN (Registered Nurse) CM discussed D/C plans with pt. [place]. Upon discharge wanted meal voucher and stated no ride was available. [facility] and [facility] based [place] and pt came to hospital via POV. Wif e stated ride coming, now wants gas voucher. has a history of requesting these service s with every admission. Gas voucher was declined. onver quique Transaction, Provider Unknown - 02/19/2017 6:42 AM PDT Nurse Progress Note by Valorie Coon RN at 02/19/17641 Author: Valorie Coon RN Service: (none) Author Type: Registered Nurse Filed: 02/19/17642 Date of Service: 02/19/17641 Status: Signed [place]: Valorie Coon RN (Registered Nurse) No changes to initial assessment. Medicated once for pain. No further bleeding noted from t he groin. Will continue to monitor onver quique Transaction, Provider Unknown - 02/19/2017 4:03 AM PDT Nurse Progress Note by Valorie Coon RN at 02/19/17402 Author: Valorie Coon RN Service: (none) Author Type: Registered Nurse Filed: 02/19/17402 Date of Service: 02/19/17402 Status: Signed [place]: Valorie Coon RN (Registered Nurse) 24 hour chart check complete VALORIE COON RN 02/19/2017 4:03 AM onver quique Transaction, Provider Unknown - 02/18/2017 10:23 PM PDT Nurse Progress Note by Valorie Coon RN at 02/18/172222 Author: Valorie Coon RN Service: (none) Author Type: Registered Nurse Filed: 02/18/172226 Date of Service: 02/18/172222 Status: Signed [place]: Valorie Coon RN (Registered Nurse) Patient sitting in chair when I entered room to give night meds. Noted a large area of bloo d on patient's pants where he had a temporary dialysis cath removed. Patient assisted back t o bed and BP checked- 149/73. C/o feeling dizzy and lightheaded. STAT H/H ordered. Dressing removed, large clot noted on the old gauze. Pressure held for 10 minutes and then dressing r eplaced and sand bag currently in place. BP 140/73. Denies any dizziness at this time. Instr ucted to not get out of bed for the next few hours. Will continue to monitor Jose Amador MD - 02/18/2017 6:21 PM PDTFormatting of this note might be different from t barbie original. Progress Notes by Jose Paz MD at 02/18/171820 Author: Jose Paz MD Service: Hospitalist Author Type: Physician Filed: 02/18/171830 Date of Service: 02/18/171820 Status: Signed [place]: Jose Paz MD (Physician) [facility] Service: Hospitalist Progress Note Carol Potter 51 y.o. [id number] male [facility] Day: LOS: 1 day SUBJECTIVE Patient Summary: Patient is a 51 year old male with past medical history of Hypertension, HLD, ESRD on HD MW F, DM Type 2, Hypothyroidism and Asthma who was admitted due to hyperkalemia and missed hemo dialysis for more than a week. Apparently he went for his HD last week but he was found to h ave severe skin lesions involving the fistula site which was concerning for infection. He co uld not follow up with Dr Timmons and eventually went to [facility] and he was then transferred to [facility] for management. His labs showed stable CBC but BMP revealed K of 5.9 and a Creatinine of 13. Nephrology services was consulted and Dr. Mayberry planned to start HD vi a IJ catheter followed by a tunneled catheter placement till further diagnosis and treatment of skin lesions were arranged. The skin findings were consistent with severe atopic dermati tis and eczema. He was started on IV Solumedrol and case was discussed Dermatology servic es. The skin lesion pictures were forwarded to Dr. Mitchell party plan sales consultant from Dermatology services who agreed with steroid use but also recommended to taper off systemic steroids quickly and start topical steroids Betamethasone for local applications. He is started on Flucinonide C reamTID and Steroids were changed to oral Prednisone to taper in 7 to 10 days. A Tunneled di alysis catheter was placed today by Dr. Garnica and if remains stable after hemodialysis then d ischarge in AM. Events Overnight: Patient seen and examine. Overnight events noted. Patient reported feeling tired and was no gela to be drowsy after tunneled cathter placement. The eczematous lesions were improving wit h topical steroid use, he reported mild itching and few flakes coming off the arms. Denied c hest pains, shortness of breath, cough and no headaches, nausea or vomiting. Feeling less en ergetic and fatigued. Also denied abdominal pain, diarrhea or constipation. Appetite is fair . Remained afebrile. Scheduled Medications allopurinol 100 mg Oral Daily amLODIPine 10 mg Oral Daily aspirin 81 mg Oral Daily bacitracin Right Eye TID budesonide-formoterol 2 puff Inhalation 2 times daily carvedilol 3.125 mg Oral BID WC cetirizine 10 mg Oral Daily cholecalciferol 1,000 Units Oral Daily famotidine 20 mg Intravenous Daily Or famotidine 20 mg Oral Daily fluocinonide Topical TID heparin (porcine) 5000 unit/0.5mL 5,000 Units Subcutaneous 2 times per day insulin lispro (human) 0-3 Units Subcutaneous Nightly insulin lispro (human) 0-6 Units Subcutaneous TID AC levothyroxine 75 mcg Oral QAM AC lidocaine buffered 1% 0.5 mL Intradermal Once lidocaine buffered 1% 0.5 mL Intradermal Once predniSONE 60 mg Oral Daily with breakfast sevelamer 1,600 mg Oral TID WC sodium bicarbonate buffer 5 mL Infiltration Once sodium bicarbonate 1,300 mg Oral BID sodium chloride 10 mL Intravenous Q8H Continuous Infusions dextrose PRN Medications acetaminophen OR acetaminophen, albuterol, dextrose, dextrose, dextrose, diphenhydrAMIN E OR diphenhydrAMINE, fentaNYL OR fentaNYL, fentaNYL, glucagon, glucagon, hydrALAZIN E, HYDROcodone-acetaminophen OR HYDROcodone-acetaminophen, midazolam, ondansetron OR ondansetron, ondansetron OR ondansetron, polyethylene glycol, sodium chloride, zolpidem Allergy: Allergies Allergen Reactions Azithromycin Rash Unknown Lisinopril Other (See Comments) "makes me sweat and knocked me out" Penicillins Other (See Comments) Unknown- not sure 10/08/12: Patient tolerated Ceftriaxone during previous admissions. OBJECTIVE Vital Signs: BP 146/66 | Pulse 78 | Temp 97.6 F (36.4 C) | Resp 14 | Ht 1.702 m (5' 7") | Wt 78 kg (171 lb 15.3 oz) | SpO2 99% | BMI 26.93 kg/m I&O Detailed Table: I/O last 3 completed shifts: In: 1375 [P.O.:775; Other:600] Out: 4600 [Other:4600] Weight change: -0.5 kg (-1 lb 1.6 oz) Hemodynamics Last 24hrs: Examination: Constitutional: Patient is alert and oriented. Appears fair, well-developed and not in acut e distress. HEENT: Head: Normocephalic and Atraumatic. Nose: Nose normal. Mouth/Throat: Oropharynx is clear and moist. Eyes: No conjunctiva injection. EOM Intact. PERRLA. No scleral icterus. Neck: Neck supple. No JVD present. No tracheal deviation present. No thyromegaly Cardiovascular: Regular rate and rhythm, no murmur heard and no friction rub. Pulmonary/Chest: Symmetrical chest expansion, no wheezes and no rales. Tunneled Catheter i n place on left side. Abdominal: Soft, bowel sounds are present, no distension, no ascites. There is no rebound t enderness and no guarding. Musculoskeletal: Moves all limbs, No joint tenderness. No pedal edema. Neurological: No focal neurologic deficits. + Weakness, No CN deficits. Skin: Skin is warm and dry. + eczematous lesions on right bicep area, left forearm, upper c hest and both lower extremities which is much improved with steroid use. Psychiatric: No psychosis, Dysphoric affect, Judgment stable. LABS: Recent Results (from the past 24 hour(s)) POCT glucose Collection Time: 02/17/17 9:24 PM Result Value Ref Range GLUCOSE,POC SCREEN 309 (H) 65 - 99 mg/dL Basic Metabolic Panel Collection Time: 02/18/17 5:35 AM Result Value Ref Range SODIUM 129 (L) 135 - 145 mmol/L POTASSIUM 4.2 3.5 - 4.9 mmol/L CHLORIDE 93 (L) 99 - 109 mmol/L CO2 17 (L) 23 - 32 mmol/L ANION GAP AGAP 23 (H) 5 - 20 mmol/L GLUCOSE 265 (H) 65 - 99 mg/dL BUN 113 (H) 8 - 25 mg/dL CREATININE 11.8 (H) 0.70 - 1.30 mg/dL BUN/CREAT 10 CALCIUM 8.5 8.5 - 10.5 mg/dL EGFR 5 (L) >60 mL/min/1.73m2 POCT glucose Collection Time: 02/18/17 6:01 AM Result Value Ref Range GLUCOSE,POC SCREEN 233 (H) 65 - 99 mg/dL POCT glucose Collection Time: 02/18/17 1:44 PM Result Value Ref Range GLUCOSE,POC SCREEN 143 (H) 65 - 99 mg/dL POCT glucose Collection Time: 02/18/17 5:26 PM Result Value Ref Range GLUCOSE,POC SCREEN 340 (H) 65 - 99 mg/dL PROBLEM LIST Principal Problem: ESRD (end stage renal disease) on dialysis ([facility]) Active Problems: Rash Diabetes mellitus with ESRD (end-stage renal disease) ([facility]) HTN (hypertension) Hyponatremia Eczema of both upper extremities ASSESSMENT & PLAN End Stage Renal Disease on Hemodialysis: Nephrology services is on board and resumed hemod ialysis via femoral dialysis. S/P Tunneled dialysis catheter placement today by Dr. Danika win hout any complications. Dr. Mayberry is managing dialysis, to continue per scheduled MWF and f ollow closely. Hyponatremia: Mild and multifactorial, due to hyperglycemia from steroid use and pseudohypo natremia. The corrected Na level is around 132, will continue Insulin, Hemodialysis and carlos tor. Diabetes Mellitus Type 2: Blood sugars were elevated, likely due to steroid use. Will need low dose Lantus at night and give Humalog per SS while on steroids and monitor. Eczema of both Upper Extremities / Rash: This was likely atopic dermatitis, responding to Steroids. The case was discussed in detail with Dermatology services and pictures were fo rwarded to Dr. Mitchell who agreed with steroid use but also recommended a quick taper of oral Prednisone over the next 7 to 8 days. She recommended topical high potency steroids Betamet hasone for local applications TID but since it was no availale at our pharmacy he was starte d on Flucinonide TID. He will need a prescription of Prednisone to taper in a week and Betam ethasone for local application TID for one week then BID and follow up with his PCP for cesar tional recommendations. Will also continue oral Zyrtec, Pepcid and monitor progress. Hypertension: BP remains stable, to continue Amlodipine and Coreg as scheduled and monitor hemodynamics. DVT prophylaxis with SCD's and Heparin. Discharge plans tomorrow if remains stable to home with family. Spent more than 30 minutes reviewing patient's labs, diagnostic tests, examination of patie nt, discussing plan of care with patient, also helped in coordination of care and answered h is questions. JOSE PAZ MD 02/18/2017 onversion Trans action, Provider Unknown - 02/18/2017 4:53 PM PDT Nurse Progress Note by Britta Hussein RN at 02/18/171652 Author: Britta Hussein RN Service: (none) Author Type: Registered Nurse Filed: 02/18/171652 Date of Service: 02/18/171652 Status: Signed [place]: Britta Hussein RN (Registered Nurse) Diet advanced per order, pt tolerating well. New tunneled catheter site oozing blood, sand bag applied. Bleeding slowing down. Will monitor. onver quique Transaction, Provider Unknown - 02/17/2017 12:49 PM PDT Nurse Progress Note by Maude Fitzgerald RN at 02/17/17 1722 Author: Maude Fitzgerald RN Service: (none) Author Type: Registered Nurse Filed: 02/17/17 3354 Date of Service: 02/17/171248 Status: Signed [place]: Maude Fitzgerald RN (Registered Nurse) Pt has skin lesions on left forearm, right antecubital/bicep, bilateral nipples, and left c debbie. Per MD place fluocinonide cream onto lesions and cover with moistened gauze for 30 min, BID. Pt was educated on purpose and how to apply cream, as this will be a regime he will sly saucedo have to continue upon d/c onver quique Transaction, Provider Unknown - 02/17/2017 11:06 AM PDT Case Management by VANDANA Godwin at 02/17/17 0659 Author: VANDANA Godwin Service: (none) Author Type: Die Set Up Worker Filed: 02/17/171107 Date of Service: 02/17/171105 Status: Signed [place]: VANDANA Godwin (Die Set Up Worker) 02/17/17 1100 Discharge Planning Evaluation Admitting Diagnosis Hyperkalemia Readmission No Living Arrangements Children;Spouse/significant other Support Systems Spouse/significant other;Children Type of Residence Private residence Independent with ADL's Yes Independent with Mobility Yes Mental Status Oriented Prior functional status indpt Anticipated Discharge Plan Post Acute Care Needs None at this time Resources Financial concerns No Transportation issues No Patient/Family concerns No Prescription Plan Yes Anticipated Disposition Facility Type Home Met with pt and spouse and discussed discharge planning, Pt is a 51 y.o., male, admit for h yperkalemia - per pt HD access not working which is reason he was admitted, pt lives in [place], [place] with spouse and 2 sons, pt is indpt with adls, iadls, no dme, temp dialysis cathet er placed - [facility], [facility] - sister transports to dialysis, CM team to follow for dcp Patient's PCP is: Kelvin Deng Patient's insurance:[employer] Coverage concerns: no concerns Medication coverage/concerns: no concerns Community resources utilized / needed: none Assistance in transportation: fam to drive home Identification of any specific education / training: TBD Barriers to Discharge / Alternative housing needed: none at this time Anticipated DCP: home with spouse Quinn Dominick Quiñonez Jose Amador MD - 02/17/2017 8:21 AM PDTFormatting of this note might be different from stefanie valentin original. Progress Notes by Jose Paz MD at 02/17/17820 Author: Jose Paz MD Service: Hospitalist Author Type: Physician Filed: 02/17/171923 Date of Service: 02/17/17820 Status: Signed [place]: Jose Paz MD (Physician) [facility] Service: Hospitalist Progress Note Carol Potter 51 y.o. [id number] male [facility] Day: LOS: 0 days SUBJECTIVE Patient Summary: Patient is a 51 year old male with past medical history of Hypertension, HLD, ESRD on HD MW F, DM Type 2, Hypothyroidism and Asthma who was admitted due to hyperkalemia and missed hemo dialysis for more than a week. Apparently he went for his HD last week but he was found to h ave severe skin lesions involving the fistula site which was concerning for infection. He co uld not follow up with Dr Timmons and eventually went to [facility] and he was then transferred to [facility] for management. His labs showed stable CBC but BMP revealed K of 5.9 and a Creatinine of 13. Nephrology services was consulted and Dr. Mayberry planned to start HD vi a IJ catheter followed by a tunneled catheter placement till further diagnosis and treatment of skin lesions were arranged. The skin findings were consistent with severe atopic dermati tis and eczema. He was started on IV Solumedrol and case was discussed [facility] es. The skin lesion pictures were forwarded to Dr. Mitchell party plan sales consultant from Dermatology services who agreed with steroid use but also recommended to taper off systemic steroids quickly and start topical steroids Betamethasone for local applications. He is started on Flucinonide C reamTID and Steroids were changed to oral Prednisone 60 mg daily to taper in 7 to 10 days. Events Overnight: Patient seen and examine. Overnight events noted. Patient reported feeling better today and noted reduction in skin rash. The eczematous lesions were smaller in size and noted to be f ading. He denied itching at present and or pain at the extremities. Also denied chest pains, shortness of breath, cough and no headaches, nausea or vomiting. Feeling less energetic and fatigued. Also denied abdominal pain, diarrhea or constipation. Appetite is fair. Remained afebrile. Scheduled Medications allopurinol 100 mg Oral Daily amLODIPine 10 mg Oral Daily aspirin 81 mg Oral Daily bacitracin Right Eye TID budesonide-formoterol 2 puff Inhalation 2 times daily carvedilol 3.125 mg Oral BID WC cetirizine 10 mg Oral Daily cholecalciferol 1,000 Units Oral Daily famotidine 20 mg Intravenous Daily Or famotidine 20 mg Oral Daily fluocinonide Topical TID heparin (porcine) 5000 unit/0.5mL 5,000 Units Subcutaneous 2 times per day insulin lispro (human) 0-3 Units Subcutaneous Nightly insulin lispro (human) 0-6 Units Subcutaneous TID AC levothyroxine 75 mcg Oral QAM AC lidocaine buffered 1% 0.5 mL Intradermal Once predniSONE 60 mg Oral Daily with breakfast sevelamer 1,600 mg Oral TID WC sodium bicarbonate 1,300 mg Oral BID Continuous Infusions dextrose PRN Medications acetaminophen OR acetaminophen, albuterol, dextrose, dextrose, dextrose, diphenhydrAMIN E OR diphenhydrAMINE, fentaNYL OR fentaNYL, glucagon, glucagon, hydrALAZINE, ondanse herber OR ondansetron, polyethylene glycol, sodium chloride, zolpidem Allergy: Allergies Allergen Reactions Azithromycin Rash Unknown Lisinopril Other (See Comments) "makes me sweat and knocked me out" Penicillins Other (See Comments) Unknown- not sure 10/08/12: Patient tolerated Ceftriaxone during previous admissions. OBJECTIVE Vital Signs: BP 157/77 (BP Location: Left upper arm) | Pulse 86 | Temp 97.7 F (36.5 C) (Oral) | R cici 18 | Ht 1.702 m (5' 7") | Wt 74 kg (163 lb 2.3 oz) | SpO2 100% | BMI 25.55 kg/m I&O Detailed Table: I/O last 3 completed shifts: In: 1950 [P.O.:1350; Other:600] Out: 4600 [Other:4600] Weight change: -0.4 kg (-14.1 oz) Hemodynamics Last 24hrs: Examination: Constitutional: Patient is alert and oriented. Appears fair, well-developed and not in acut e distress. HEENT: Head: Normocephalic and Atraumatic. Nose: Nose normal. Mouth/Throat: Oropharynx is clear and moist. Eyes: No conjunctiva injection. EOM Intact. PERRLA. No scleral icterus. Neck: Neck supple. No JVD present. No tracheal deviation present. No thyromegaly Cardiovascular: Regular rate and rhythm, no murmur heard and no friction rub. Pulmonary/Chest: Symmetrical chest expansion, no stridor, no wheezes and no rales. Abdominal: Soft, bowel sounds are present, no distension, no ascites. There is no rebound t enderness and no guarding. Musculoskeletal: Moves all limbs, No joint tenderness. No pedal edema. Neurological: No focal neurologic deficits. + Weakness, No CN deficits. Skin: Skin is warm and dry. + eczematous lesions on both arms, right bicep area, left forea rm, upper chest and both lower extremities which is improving. No pallor. Psychiatric: No psychosis, Dysphoric affect, Judgment stable. LABS: Recent Results (from the past 24 hour(s)) POCT glucose Collection Time: 02/16/17 8:46 PM Result Value Ref Range GLUCOSE,POC SCREEN 204 (H) 65 - 99 mg/dL Basic Metabolic Panel Collection Time: 02/17/17 4:26 AM Result Value Ref Range SODIUM 130 (L) 135 - 145 mmol/L POTASSIUM 4.1 3.5 - 4.9 mmol/L CHLORIDE 96 (L) 99 - 109 mmol/L CO2 18 (L) 23 - 32 mmol/L ANION GAP AGAP 20 5 - 20 mmol/L GLUCOSE 357 (H) 65 - 99 mg/dL BUN 71 (H) 8 - 25 mg/dL CREATININE 9.7 (H) 0.70 - 1.30 mg/dL BUN/CREAT 7 CALCIUM 7.7 (L) 8.5 - 10.5 mg/dL EGFR 6 (L) >60 mL/min/1.73m2 CBC W/Auto Diff (Reflex to Manual) Collection Time: 02/17/17 4:26 AM Result Value Ref Range WBC 6.65 3.80 - 11.00 K/uL RBC 4.41 4.20 - 5.70 M/uL HGB 12.6 (L) 13.2 - 17.0 g/dL HCT 38.5 (L) 39.0 - 50.0 % MCV 87.2 80.0 - 100.0 fl MCH 28.6 27.0 - 34.0 pg MCHC 32.8 32.0 - 35.5 g/dL RDW SD 63.0 (H) 37 - 53 fl PLT 174 150 - 400 K/uL MPV 7.2 fl DIFF TYPE MANUAL Neutrophils Manual 96 % Lymphocytes Manual 4 % Neutrophils Absolute 6.38 1.90 - 7.40 K/uL Lymphocytes Absolute 0.27 (L) 1.00 - 3.90 K/uL MORPHOLOGY 1+ CRP Collection Time: 02/17/17 4:26 AM Result Value Ref Range CRP 0.7 (H) <0.5 mg/dL ESR Collection Time: 02/17/17 4:26 AM Result Value Ref Range ESR 26 (H) 0 - 20 mm/Hr Glycohemoglobin A1c Collection Time: 02/17/17 4:26 AM Result Value Ref Range HEMOGLOBIN A1C 5.5 4.0 - 6.0 % ESTIMATED AVG GLUCOSE 111 mg/dL POCT glucose Collection Time: 02/17/17 5:57 AM Result Value Ref Range GLUCOSE,POC SCREEN 241 (H) 65 - 99 mg/dL POCT glucose Collection Time: 02/17/17 11:18 AM Result Value Ref Range GLUCOSE,POC SCREEN 213 (H) 65 - 99 mg/dL POCT glucose Collection Time: 02/17/17 4:08 PM Result Value Ref Range GLUCOSE,POC SCREEN 174 (H) 65 - 99 mg/dL PROBLEM LIST Principal Problem: ESRD (end stage renal disease) on dialysis ([facility]) Active Problems: Rash Diabetes mellitus with ESRD (end-stage renal disease) ([facility]) HTN (hypertension) Hyponatremia Eczema of both upper extremities ASSESSMENT & PLAN End Stage Renal Disease on Hemodialysis: Nephrology services is on board and resumed hemod ialysis via femoral dialysis catheter yesterday. He will be scheduled for Tunneled catheter placement tomorrow by Dr. Garnica till skin lesion is stable and improved. Hyponatremia: Mild and likely due to hyperglycemia and pseudohyponatremia, the corrected le vels is around 133. Will monitor accu checks and continue Insulin and Hemodialysis and monit or. Diabetes Mellitus Type 2: Blood sugars were elevated, likely due to steroid use. Will give Humalog Inuslin per SS and wean steroids in 7 to 10 days. Eczema of both Upper Extremities / Rash: Likely atopic dermatitis, responding to IV Solume drol with improvement in skin rash today. Case was discussed in detail with Dermatology s ervices and pictures were forwarded to Dr. Mitchell who agreed with steroid use but recommende d to taper off quickly and also start topical steroids Betamethasone for local applications. He is now started on Flucinonide TID and Steroids is changed to oral Prednisone 60 mg daily to taper in 7 to 10 days. Will also continue oral Zyrtec, Pepcid and monitor progress. Hypertension: BP seems to be stable with mild variations. Will continue Amlodipine and Core g as scheduled and monitor hemodynamics. DVT prophylaxis with SCD's and Heparin. Discharge plans when stable and improved in few days after tunneled catheter placement. Spent more than 30 minutes reviewing patient's labs, diagnostic tests, examination of patie nt, discussing plan of care with patient, also helped in coordination of care and answered h is questions. JOSE PAZ MD 02/17/2017 onversion Trans action, Provider Unknown - 02/16/2017 9:21 PM PDT Nurse Progress Note by Sandrita Quiros RN at 02/16/172120 Author: Sandrita Quiros RN Service: Nephrology Author Type: Registered Nurse Filed: 02/16/172122 Date of Service: 02/16/172120 Status: Signed [place]: Sandrita Quiros RN (Registered Nurse) Hemodialysis Treatment Summary 4 hour HD UF net = 4 L, with ease. Pt slept throughout tx. BP/HR stable, uneventful tx Catheter working well. onver quique Transaction, Provider Unknown - 02/16/2017 6:44 PM PDT Nurse Progress Note by Tracey Cantu RN at 02/16/171843 Author: Tracey Cantu RN Service: (none) Author Type: Registered Nurse Filed: 02/16/171845 Date of Service: 02/16/171843 Status: Signed [place]: Tracey Cantu RN (Registered Nurse) Pt had unsuccessful IJ placement. Femoral placement successful. Pt currently receiving dial ysis and VS stable. PICC nurse came and placed a PIV in left arm. [facility] Tracey Cantu RN Jose Amador MD - 02/16/2017 9:25 AM PDTFormatting of this note might be different from t barbie original. Progress Notes by Jose Paz MD at 02/16/17 0952 Author: Jose Paz MD Service: Hospitalist Author Type: Physician Filed: 02/16/17 5683 Date of Service: 02/16/17 0902 Status: Signed [place]: Jose Paz MD (Physician) [facility] Service: Hospitalist Progress Note Carol Potter 51 y.o. [id number] anali [facility] Day: LOS: 0 days SUBJECTIVE Patient Summary: Patient is a 51 year old male with past medical history of Hypertension, HLD, ESRD on HD MW F, DM Type 2, Hypothyroidism and Asthma who was admitted due to hyperkalemia and missed hemo dialysis for more than a week. Apparently he went for his HD last week but he was found to h ave severe skin lesions involving the fistula site which was concerning for infection. He co uld not follow up with Dr Timmons and eventually went to [facility] and he was then transferred to [facility] for management. His labs showed stable CBC but BMP revealed K of 5.9 and a Creatinine of 13. Nephrology services was consulted and Dr. Mayberry planned to start HD vi a IJ catheter followed by a tunneled catheter placement till further diagnosis and treatment of skin lesions were arranged. Events Overnight: Patient seen and examine. Overnight events noted. Patient reported feeling fair but worried about his dialysis and skin problem. Denied chest pain, shortness of breath, cough and no h eadaches, nausea or vomiting. Feeling less energetic and fatigued. Also denied abdominal luca n, diarrhea or constipation. Appetite is fair. No itching at this time but has episodes off and on. Remained afebrile. Scheduled Medications allopurinol 100 mg Oral Daily amLODIPine 10 mg Oral Daily aspirin 81 mg Oral Daily bacitracin Right Eye TID budesonide-formoterol 2 puff Inhalation 2 times daily carvedilol 3.125 mg Oral BID WC cetirizine 10 mg Oral Daily cholecalciferol 1,000 Units Oral Daily [START ON 02/17/2017] famotidine 20 mg Intravenous Daily Or [START ON 02/17/2017] famotidine 20 mg Oral Daily heparin (porcine) 1,000 Units Intracatheter Once in dialysis heparin (porcine) 1,000 Units Intracatheter Once in dialysis heparin (porcine) 5000 unit/0.5mL 5,000 Units Subcutaneous 2 times per day insulin lispro (human) 0-3 Units Subcutaneous Nightly insulin lispro (human) 0-6 Units Subcutaneous TID AC levothyroxine 75 mcg Oral QAM AC lidocaine buffered 1% 0.5 mL Intradermal Once methylPREDNISolone 81.25 mg Intravenous Q8H sevelamer 1,600 mg Oral TID WC sodium bicarbonate 1,300 mg Oral BID Continuous Infusions dextrose PRN Medications acetaminophen OR acetaminophen, albuterol, dextrose, dextrose, dextrose, diphenhydrAMIN E OR diphenhydrAMINE, fentaNYL OR fentaNYL, glucagon, glucagon, hydrALAZINE, ondanse herber OR ondansetron, polyethylene glycol, sodium chloride, zolpidem Allergy: Allergies Allergen Reactions Azithromycin Rash Unknown Lisinopril Other (See Comments) "makes me sweat and knocked me out" Penicillins Other (See Comments) Unknown- not sure 10/08/12: Patient tolerated Ceftriaxone during previous admissions. OBJECTIVE Vital Signs: BP 155/87 | Pulse 78 | Temp 97.5 F (36.4 C) | Resp 20 | Ht 1.702 m (5' 7") | Wt 77 .7 kg (171 lb 4.8 oz) | SpO2 100% | BMI 26.83 kg/m I&O Detailed Table: No intake/output data recorded. Weight change: Hemodynamics Last 24hrs: Examination: Constitutional: Patient is alert and oriented. Appears fair, well-developed and not in acut e distress. HEENT: Head: Normocephalic and Atraumatic. Nose: Nose normal. Mouth/Throat: Oropharynx is clear and moist. Eyes: No conjunctiva injection. EOM Intact. PERRLA. No scleral icterus. Neck: Neck supple. No JVD present. No tracheal deviation present. No thyromegaly Cardiovascular: Regular rate and rhythm, no murmur heard and no friction rub. Pulmonary/Chest: Symmetrical chest expansion, no stridor, no wheezes and no rales. Abdominal: Soft, bowel sounds are present, no distension, no ascites. There is no rebound t enderness and no guarding. Musculoskeletal: Moves all limbs, No joint tenderness. No pedal edema. Neurological: No focal neurologic deficits. + Weakness, No CN deficits. Skin: Skin is warm and dry. + eczematous lesions on both arms, right bicep area surrounding dialysis fistula site, on left forearm, upper chest are involving nipples and both lower ex tremities with patchy areas of involvement. No pallor. Psychiatric: No psychosis, Dysphoric affect, Judgment stable. LABS: Recent Results (from the past 24 hour(s)) Ammonia level Collection Time: 02/15/17 8:18 PM Result Value Ref Range AMMONIA 30 <33 umol/L BNP Collection Time: 02/15/17 8:18 PM Result Value Ref Range BRAIN NATRIURETIC PEPTIDE 253 (H) 0 - 100 pg/mL Cardiac Panel Collection Time: 02/15/17 8:18 PM Result Value Ref Range WBC 7.95 3.80 - 11.00 K/uL RBC 4.53 4.20 - 5.70 M/uL HGB 13.3 13.2 - 17.0 g/dL HCT 39.6 39.0 - 50.0 % MCV 87.4 80.0 - 100.0 fl MCH 29.3 27.0 - 34.0 pg MCHC 33.5 32.0 - 35.5 g/dL RDW SD 64.3 (H) 37 - 53 fl PLT 231 150 - 400 K/uL MPV 6.6 fl DIFF TYPE AUTOMATED NEUTROPHILS 65.02 % LYMPHOCYTES 9.80 % MONOCYTES 5.53 % EOSINOPHILS 18.93 % BASOPHILS 0.72 % NEUTROPHILS ABS 5.17 1.90 - 7.40 K/uL LYMPHOCYTES ABS 0.78 (L) 1.00 - 3.90 K/uL MONOCYTES ABS 0.44 0.00 - 0.80 K/uL EOSINOPHILS ABS 1.50 (H) 0.00 - 0.50 K/uL BASOPHILS ABS 0.06 0.00 - 0.10 K/uL MORPHOLOGY 1+ Platelet Estimate ADEQUATE SODIUM 134 (L) 135 - 145 mmol/L POTASSIUM 5.9 (H) 3.5 - 4.9 mmol/L CHLORIDE 106 99 - 109 mmol/L CO2 13 (LL) 23 - 32 mmol/L ANION GAP AGAP 20 5 - 20 mmol/L GLUCOSE 82 65 - 99 mg/dL BUN 118 (H) 8 - 25 mg/dL CREATININE 13 (H) 0.70 - 1.30 mg/dL BUN/CREAT 9 CALCIUM 7.7 (L) 8.5 - 10.5 mg/dL TOTAL PROTEIN 8.6 (H) 6.3 - 8.2 g/dL Albumin 3.9 3.6 - 5.0 g/dL GLOBULIN 4.7 1.3 - 4.9 g/dL A/G 0.8 (L) 1.0 - 2.4 TBIL 0.7 0.1 - 1.5 mg/dL ALK PHOS 124 (H) 35 - 115 U/L AST 35 10 - 45 U/L ALT 70 (H) 10 - 65 U/L EGFR 4 (L) >60 mL/min/1.73m2 CPK 240 55 - 400 U/L INR 1.0 APTT 29 23 - 32 seconds MMB 13.3 (H) 0.5 - 3.6 ng/mL CK-MB Index 5.5 Septic Lactic Acid Collection Time: 02/15/17 8:24 PM Result Value Ref Range LACTIC ACID 0.5 0.4 - 2.0 mmol/L EKG Collection Time: 02/15/17 8:32 PM Result Value Ref Range Ventricular Rate 79 BPM Atrial Rate 79 BPM P-R Interval 214 ms QRS Duration 106 ms Q-T Interval 426 ms QTC Calculation (Bezet) 488 ms Calculated P [place] 47 degrees Calculated R [place] 12 degrees Calculated T [place] 70 degrees Diagnosis Sinus rhythm with 1st degree A-V block Prolonged QT Abnormal ECG When compared with ECG of 09-OCT-2016 11:31, Questionable change in QRS axis Nonspecific T wave abnormality no longer evident in Inferior leads Nonspecific T wave abnormality no longer evident in Anterolateral leads This ECG contains Unconfirmed Interpretation Statements. See ED Record for Physician Inter pretation. Confirmed by MUSE READ ONLY, -COMPUTER ([id number]), story editor ANA M NAVARRO ([id number]) on 02/16/2017 5:51 :20 AM POC venous blood gas Collection Time: 02/15/17 10:42 PM Result Value Ref Range POC VENOUS PH 7.243 (L) 7.310 - 7.410 POC VENOUS PCO2 28 (L) 41 - 51 mmHG POC VENOUS PO2 49 (H) 30 - 40 mmHG POC VENOUS HCO3 12 (L) 23 - 28 mmol/L POC TCO2 13 (L) 24 - 29 mEq/L POC BASE DEFICIT 15 (H) 0.0 - 2.0 mmol/L POC VENOUS SO2 79.0 60 - 85 % pH, venous Collection Time: 02/15/17 10:50 PM Result Value Ref Range pH 7.208 (L) 7.300 - 7.450 POCT glucose Collection Time: 02/15/17 11:26 PM Result Value Ref Range GLUCOSE,POC SCREEN 101 (H) 65 - 99 mg/dL MRSA by PCR Collection Time: 02/15/17 11:33 PM Result Value Ref Range SOURCE NARES(NOSE) MRSA PCR POSITIVE for MRSA by PCR (A) NEGATIVE Basic Metabolic Panel Collection Time: 02/15/17 11:39 PM Result Value Ref Range SODIUM 137 135 - 145 mmol/L POTASSIUM 5.0 (H) 3.5 - 4.9 mmol/L CHLORIDE 106 99 - 109 mmol/L CO2 12 (LL) 23 - 32 mmol/L ANION GAP AGAP 24 (H) 5 - 20 mmol/L GLUCOSE 87 65 - 99 mg/dL BUN 122 (H) 8 - 25 mg/dL CREATININE 13.0 (H) 0.70 - 1.30 mg/dL BUN/CREAT 9 CALCIUM 7.8 (L) 8.5 - 10.5 mg/dL EGFR 4 (L) >60 mL/min/1.73m2 Septic Lactic Acid Collection Time: 02/16/17 1:52 AM Result Value Ref Range LACTIC ACID 1.6 0.4 - 2.0 mmol/L CBC W/Auto Diff (Reflex to Manual) Collection Time: 02/16/17 5:02 AM Result Value Ref Range WBC 6.43 3.80 - 11.00 K/uL RBC 4.17 (L) 4.20 - 5.70 M/uL HGB 12.3 (L) 13.2 - 17.0 g/dL HCT 36.9 (L) 39.0 - 50.0 % MCV 88.3 80.0 - 100.0 fl MCH 29.4 27.0 - 34.0 pg MCHC 33.2 32.0 - 35.5 g/dL RDW SD 62.1 (H) 37 - 53 fl PLT 193 150 - 400 K/uL MPV 6.8 fl DIFF TYPE AUTOMATED NEUTROPHILS 61.06 % LYMPHOCYTES 12.63 % MONOCYTES 5.62 % EOSINOPHILS 19.88 % BASOPHILS 0.81 % NEUTROPHILS ABS 3.93 1.90 - 7.40 K/uL LYMPHOCYTES ABS 0.81 (L) 1.00 - 3.90 K/uL MONOCYTES ABS 0.36 0.00 - 0.80 K/uL EOSINOPHILS ABS 1.28 (H) 0.00 - 0.50 K/uL BASOPHILS ABS 0.05 0.00 - 0.10 K/uL MORPHOLOGY 2+ Magnesium Collection Time: 02/16/17 5:02 AM Result Value Ref Range MAGNESIUM 3.1 (H) 1.7 - 2.4 mg/dL Phosphorus Collection Time: 02/16/17 5:02 AM Result Value Ref Range PHOSPHORUS 7.5 (H) 2.3 - 4.8 mg/dL Comprehensive Metabolic Panel Collection Time: 02/16/17 5:02 AM Result Value Ref Range SODIUM 137 135 - 145 mmol/L POTASSIUM 4.1 3.5 - 4.9 mmol/L CHLORIDE 105 99 - 109 mmol/L CO2 12 (LL) 23 - 32 mmol/L ANION GAP AGAP 24 (H) 5 - 20 mmol/L GLUCOSE 68 65 - 99 mg/dL BUN 117 (H) 8 - 25 mg/dL CREATININE 13.2 (H) 0.70 - 1.30 mg/dL BUN/CREAT 9 CALCIUM 7.5 (L) 8.5 - 10.5 mg/dL TOTAL PROTEIN 7.8 6.3 - 8.2 g/dL Albumin 3.8 3.6 - 5.0 g/dL GLOBULIN 4.0 1.3 - 4.9 g/dL A/G 1.0 1.0 - 2.4 TBIL 0.6 0.1 - 1.5 mg/dL ALK PHOS 107 35 - 115 U/L AST 29 10 - 45 U/L ALT 59 10 - 65 U/L EGFR 4 (L) >60 mL/min/1.73m2 Bili, direct Collection Time: 02/16/17 5:02 AM Result Value Ref Range BILI, DIRECT 0.2 0.0 - 0.3 mg/dL Electrocardiogram, 12-lead Collection Time: 02/16/17 5:21 AM Result Value Ref Range Ventricular Rate 80 BPM Atrial Rate 80 BPM P-R Interval 210 ms QRS Duration 102 ms Q-T Interval 448 ms QTC Calculation (Bezet) 516 ms Calculated P [place] 59 degrees Calculated R [place] 24 degrees Calculated T [place] 73 degrees Diagnosis Sinus rhythm with 1st degree A-V block Low voltage limb leads only Nonspecific ST and/or T wave abnormalities Prolonged QT Abnormal ECG When compared with ECG of 15-FEB-2017 20:32, No significant change was found Confirmed by ANASTACIA NAYLOR ([id number]) on 02/16/2017 10:09:05 AM POCT glucose Collection Time: 02/16/17 6:03 AM Result Value Ref Range GLUCOSE,POC SCREEN 75 65 - 99 mg/dL Urinalysis (reflex to micro) Collection Time: 02/16/17 7:45 AM Result Value Ref Range COLOR UA STRAW CLARITY CLEAR Specific [place], UA 1.012 1.002 - 1.030 LEUKOCYTE ESTERASE NEGATIVE NEGATIVE NITRITE NEGATIVE NEGATIVE UROBILINOGEN NORMAL <1.1 mg/dL PROTEIN 100 (A) NEGATIVE mg/dL PH,URINE 6.0 5.0 - 8.0 BLOOD NEGATIVE NEGATIVE KETONES NEGATIVE NEGATIVE mg/dL BILIRUBIN NEGATIVE NEGATIVE GLUCOSE 150 (A) NEGATIVE mg/dL Urine microscopic only Collection Time: 02/16/17 7:45 AM Result Value Ref Range WBC 3-5 0 - 5 /hpf RBC 0-2 0 - 2 /hpf EPITHELIAL NONE SEEN /lpf BACTERIA NONE SEEN NONE SEEN POCT glucose Collection Time: 02/16/17 11:27 AM Result Value Ref Range GLUCOSE,POC SCREEN 101 (H) 65 - 99 mg/dL Basic Metabolic Panel Collection Time: 02/16/17 11:55 AM Result Value Ref Range SODIUM 135 135 - 145 mmol/L POTASSIUM 4.3 3.5 - 4.9 mmol/L CHLORIDE 103 99 - 109 mmol/L CO2 17 (L) 23 - 32 mmol/L ANION GAP AGAP 19 5 - 20 mmol/L GLUCOSE 81 65 - 99 mg/dL BUN 125 (H) 8 - 25 mg/dL CREATININE 13.0 (H) 0.70 - 1.30 mg/dL BUN/CREAT 10 CALCIUM 7.6 (L) 8.5 - 10.5 mg/dL EGFR 4 (L) >60 mL/min/1.73m2 Hepatitis B surface antigen Collection Time: 02/16/17 1:33 PM Result Value Ref Range HEP B SURFACE AG NON REACTIVE NON REACTIVE Basic metabolic panel Collection Time: 02/16/17 1:34 PM Result Value Ref Range SODIUM 135 135 - 145 mmol/L POTASSIUM 4.1 3.5 - 4.9 mmol/L CHLORIDE 103 99 - 109 mmol/L CO2 15 (L) 23 - 32 mmol/L ANION GAP AGAP 20 5 - 20 mmol/L GLUCOSE 84 65 - 99 mg/dL BUN 124 (H) 8 - 25 mg/dL CREATININE 13 (H) 0.70 - 1.30 mg/dL BUN/CREAT 10 CALCIUM 7.0 (L) 8.5 - 10.5 mg/dL EGFR 4 (L) >60 mL/min/1.73m2 POCT glucose Collection Time: 02/16/17 4:07 PM Result Value Ref Range GLUCOSE,POC SCREEN 102 (H) 65 - 99 mg/dL PROBLEM LIST Principal Problem: Hyperkalemia Active Problems: Rash 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 Mayberry from Nephrology services is consulted and he is arranging to resume scheduled hemodialysis. Will monitor julio cesar sely and follow BMP periodically. End Stage Renal Disease on Hemodialysis: Patient missed his dialysis due to possible skin i nfection at the fistula site. Nephrology service is following an IJ catheter will be placed today follow by Tunneled catheter placement on Saturday till skin lesions are improved. Eczema of both Upper Extremities / Rash: This based on clinical examination, however other dermatological skin lesions are not rule out. Will consult Dermatology services if available otherwise make out patient appointment for further evaluation. Start oral Zyrtec, continue H2 Blockers, start IV Solumedrol on atrial basis and add steroid cream after additional rev iew. Hypertension: BP seems to be stable with mild variations. Will resume Amlodipine at home do se and monitor hemodynamics. DVT prophylaxis with SCD's and Heparin. Discharge plans when stable and improved in few days. Spent more than 35 minutes reviewing patient's labs, diagnostic tests, examination of patie nt, discussing plan of care with patient, also helped in coordination of care and answered h is questions. JOSE PAZ MD 02/16/2017 onversion Trans action, Provider Unknown - 02/16/2017 6:57 AM PDT Nurse Progress Note by Marc Chang RN at 02/16/1757 Author: Marc Chang RN Service: (none) Author Type: Registered Nurse Filed: 02/16/17 0659 Date of Service: 02/16/17656 Status: Signed [place]: Marc Chang RN (Registered Nurse) Critical lab value, CO2-12 received from TC. Called to Makenna Velasco RN with read back. Ramón Chang RN onver quique Transaction, Provider Unknown - 02/16/2017 5:29 AM PDT Progress Notes by Xavier Toro RPH at 02/16/17528 Author: Xavier Toro RPH Service: Pharmacy Author Type: Pharmacist Filed: 02/16/17528 Date of Service: 02/16/17528 Status: Signed [place]: Xavier Toro RPH (Pharmacist) Note ccl 6.1ml/min ESRD meds reviewed pepcid to daily consider alternate pharmacy will follow [facility] [id number] docume nted in this encounter Plan of Treatment Not on filedocumented as of this encounter Procedures + +--------+ + + + | Procedure Name | Priori | Date/Time | Associated Diagnosis | Comments | | | ty | | | | + +--------+ + + + | POC GLUCOSE | Routin | 02/19/2017 | | Results for this | | | e | 4:46 PM | | procedure are in the | | | | PDT | | results section. | + +--------+ + + + | POC GLUCOSE | Routin | 02/19/2017 | | Results for this | | | e | 11:43 AM | | procedure are in the | | | | PDT | | results section. | + +--------+ + + + | POC GLUCOSE | Routin | 02/19/2017 | | Results for this | | | e | 6:17 AM | | procedure are in the | | | | PDT | | results section. | + +--------+ + + + | BASIC METABOLIC | Routin | 02/19/2017 | | Results for this | | PANEL | e | 5:44 AM | | procedure are in the | | | | PDT | | results section. | + +--------+ + + + | HEMOGLOBIN AND | Routin | 02/18/2017 | | Results for this | | HEMATOCRIT | e | 9:56 PM | | procedure are in the | | | | PDT | | results section. | + +--------+ + + + | POC GLUCOSE | Routin | 02/18/2017 | | Results for this | | | e | 9:05 PM | | procedure are in the | | | | PDT | | results section. | + +--------+ + + + | POC GLUCOSE | Routin | 02/18/2017 | | Results for this | | | e | 5:26 PM | | procedure are in the | | | | PDT | | results section. | + +--------+ + + + | POC GLUCOSE | Routin | 02/18/2017 | | Results for this | | | e | 1:44 PM | | procedure are in the | | | | PDT | | results section. | + +--------+ + + + | IR PLACEMENT | Routin | 02/18/2017 | | Results for this | | TUNNELED CENTRAL | e | 1:17 PM | | procedure are in the | | VENOUS CATHETER > 5 | | PDT | | results section. | | YEARS | | | | | + +--------+ + + + | IR | Routin | 02/18/2017 | | Results for this | | ANGIOPLASTY/ATHERECT | e | 1:17 PM | | procedure are in the | | COURT/STENT | | PDT | | results section. | + +--------+ + + + | US GUIDED VASCULAR | Routin | 02/18/2017 | | Results for this | | ACCESS | e | 1:16 PM | | procedure are in the | | | | PDT | | results section. | + +--------+ + + + | POC GLUCOSE | Routin | 02/18/2017 | | Results for this | | | e | 6:01 AM | | procedure are in the | | | | PDT | | results section. | + +--------+ + + + | BASIC METABOLIC | Routin | 02/18/2017 | | Results for this | | PANEL | e | 5:35 AM | | procedure are in the | | | | PDT | | results section. | + +--------+ + + + | POC GLUCOSE | Routin | 02/17/2017 | | Results for this | | | e | 9:24 PM | | procedure are in the | | | | PDT | | results section. | + +--------+ + + + | POC GLUCOSE | Routin | 02/17/2017 | | Results for this | | | e | 4:08 PM | | procedure are in the | | | | PDT | | results section. | + +--------+ + + + | POC GLUCOSE | Routin | 02/17/2017 | | Results for this | | | e | 11:18 AM | | procedure are in the | | | | PDT | | results section. | + +--------+ + + + | POC GLUCOSE | Routin | 02/17/2017 | | Results for this | | | e | 5:57 AM | | procedure are in the | | | | PDT | | results section. | + +--------+ + + + | EXTERNAL LAB: CBC | Routin | 02/17/2017 | | Results for this | | | e | 4:26 AM | | procedure are in the | | | | PDT | | results section. | + +--------+ + + + | SEDIMENTATION RATE, | Routin | 02/17/2017 | | Results for this | | AUTOMATED | e | 4:26 AM | | procedure are in the | | | | PDT | | results section. | + +--------+ + + + | C-REACTIVE PROTEIN | Routin | 02/17/2017 | | Results for this | | | e | 4:26 AM | | procedure are in the | | | | PDT | | results section. | + +--------+ + + + | HEMOGLOBIN A1C | Routin | 02/17/2017 | | Results for this | | | e | 4:26 AM | | procedure are in the | | | | PDT | | results section. | + +--------+ + + + | BASIC METABOLIC | Routin | 02/17/2017 | | Results for this | | PANEL | e | 4:26 AM | | procedure are in the | | | | PDT | | results section. | + +--------+ + + + | POC GLUCOSE | Routin | 02/16/2017 | | Results for this | | | e | 8:46 PM | | procedure are in the | | | | PDT | | results section. | + +--------+ + + + | POC GLUCOSE | Routin | 02/16/2017 | | Results for this | | | e | 4:07 PM | | procedure are in the | | | | PDT | | results section. | + +--------+ + + + | BASIC METABOLIC | Routin | 02/16/2017 | | Results for this | | PANEL | e | 1:34 PM | | procedure are in the | | | | PDT | | results section. | + +--------+ + + + | HEPATITIS B SURFACE | Routin | 02/16/2017 | | Results for this | | AG | e | 1:33 PM | | procedure are in the | | | | PDT | | results section. | + +--------+ + + + | XR CHEST 1 VIEW | Routin | 02/16/2017 | | Results for this | | | e | 12:49 PM | | procedure are in the | | | | PDT | | results section. | + +--------+ + + + | BASIC METABOLIC | Routin | 02/16/2017 | | Results for this | | PANEL | e | 11:55 AM | | procedure are in the | | | | PDT | | results section. | + +--------+ + + + | POC GLUCOSE | Routin | 02/16/2017 | | Results for this | | | e | 11:27 AM | | procedure are in the | | | | PDT | | results section. | + +--------+ + + + | URINALYSIS WITH | Routin | 02/16/2017 | | Results for this | | MICROSCOPIC IF | e | 7:45 AM | | procedure are in the | | INDICATED | | PDT | | results section. | + +--------+ + + + | URINALYSIS, | Routin | 02/16/2017 | | Results for this | | MICROSCOPIC ONLY | e | 7:45 AM | | procedure are in the | | | | PDT | | results section. | + +--------+ + + + | CULTURE, URINE | Timed | 02/16/2017 | | Results for this | | | | 7:45 AM | | procedure are in the | | | | PDT | | results section. | + +--------+ + + + | POC GLUCOSE | Routin | 02/16/2017 | | Results for this | | | e | 6:03 AM | | procedure are in the | | | | PDT | | results section. | + +--------+ + + + | EXTERNAL LAB: CBC | Routin | 02/16/2017 | | Results for this | | | e | 5:02 AM | | procedure are in the | | | | PDT | | results section. | + +--------+ + + + | PHOSPHORUS | Routin | 02/16/2017 | | Results for this | | | e | 5:02 AM | | procedure are in the | | | | PDT | | results section. | + +--------+ + + + | MAGNESIUM | Routin | 02/16/2017 | | Results for this | | | e | 5:02 AM | | procedure are in the | | | | PDT | | results section. | + +--------+ + + + | BILIRUBIN, DIRECT | Routin | 02/16/2017 | | Results for this | | | e | 5:02 AM | | procedure are in the | | | | PDT | | results section. | + +--------+ + + + | COMPREHENSIVE | Routin | 02/16/2017 | | Results for this | | METABOLIC PANEL | e | 5:02 AM | | procedure are in the | | | | PDT | | results section. | + +--------+ + + + | LACTIC ACID | Routin | 02/16/2017 | | Results for this | | | e | 1:52 AM | | procedure are in the | | | | PDT | | results section. | + +--------+ + + + | BASIC METABOLIC | Routin | 02/15/2017 | | Results for this | | PANEL | e | 11:39 PM | | procedure are in the | | | | PDT | | results section. | + +--------+ + + + | MRSA NAAT | Timed | 02/15/2017 | | Results for this | | | | 11:33 PM | | procedure are in the | | | | PDT | | results section. | + +--------+ + + + | POC GLUCOSE | Routin | 02/15/2017 | | Results for this | | | e | 11:26 PM | | procedure are in the | | | | PDT | | results section. | + +--------+ + + + | PH, VENOUS | Routin | 02/15/2017 | | Results for this | | | e | 10:50 PM | | procedure are in the | | | | PDT | | results section. | + +--------+ + + + | XR CHEST 1 VIEW | Routin | 02/15/2017 | | Results for this | | | e | 9:33 PM | | procedure are in the | | | | PDT | | results section. | + +--------+ + + + | CULTURE, BLOOD, 2ND | STAT | 02/15/2017 | | Results for this | | SPECIMEN (NON-ORD) | | 8:24 PM | | procedure are in the | | | | PDT | | results section. | + +--------+ + + + | LACTIC ACID | Routin | 02/15/2017 | | Results for this | | | e | 8:24 PM | | procedure are in the | | | | PDT | | results section. | + +--------+ + + + | HISTORICAL LAB PANEL | Routin | 02/15/2017 | | Results for this | | RESULT | e | 8:18 PM | | procedure are in the | | | | PDT | | results section. | + +--------+ + + + | CULTURE, BLOOD | STAT | 02/15/2017 | | Results for this | | | | 8:18 PM | | procedure are in the | | | | PDT | | results section. | + +--------+ + + + | B TYPE NATRIURETIC | Routin | 02/15/2017 | | Results for this | | PEPTIDE | e | 8:18 PM | | procedure are in the | | | | PDT | | results section. | + +--------+ + + + | AMMONIA | Routin | 02/15/2017 | | Results for this | | | e | 8:18 PM | | procedure are in the | | | | PDT | | results section. | + +--------+ + + + documented in this encounter Results POC Glucose (02/19/2017 4:46 PM PDT) + + + + + + | Component | Value | Ref Range | Performed | Pathologist | | | | | At | Signature | + + + + + + | Glucose, | 213 (H)Comment: Testing | 65 - 99 mg/dL | EXTERNAL | | | Fingerstick | performed at [facility];[address] | | LAB | | | | [address] [facility];[place] | | | | | | [address] | | | | + + + + + + + + | Specimen | + + | | + + + +---------+ + + | Performing | Address | City/State/Zipcode | Phone Number | | Organization | | | | + +---------+ + + | EXTERNAL LAB | | | | + +---------+ + + POC Glucose (02/19/2017 11:43 AM PDT) + + + + + + | Component | Value | Ref Range | Performed | Pathologist | | | | | At | Signature | + + + + + + | Glucose, | 192 (H)Comment: Testing | 65 - 99 mg/dL | EXTERNAL | | | Fingerstick | performed at [facility];[address] | | LAB | | | | [address];[place], [place] | | | | | | [address] | | | | + + + + + + + + | Specimen | + + | | + + + +---------+ + + | Performing | Address | City/State/Zipcode | Phone Number | | Organization | | | | + +---------+ + + | EXTERNAL LAB | | | | + +---------+ + + POC Glucose (02/19/2017 6:17 AM PDT) + + + + + + | Component | Value | Ref Range | Performed | Pathologist | | | | | At | Signature | + + + + + + | Glucose, | 374 (H)Comment: Testing | 65 - 99 mg/dL | EXTERNAL | | | Fingerstick | performed at [facility] | | LAB | | | | [address];[place], [place] | | | | | | [address] | | | | + + + + + + + + | Specimen | + + | | + + + +---------+ + + | Performing | Address | City/State/Zipcode | Phone Number | | Organization | | | | + +---------+ + + | EXTERNAL LAB | | | | + +---------+ + + Basic Metabolic Panel (02/19/2017 5:44 AM PDT) + + + + + [...] + + + + | CO2 | 21 (L) | 23 - 32 mmol/L | EXTERNAL | | | | | | LAB | | + + + + + + | Anion Gap | 19 | 5 - 20 mmol/L | EXTERNAL | | | | | | LAB | | + + + + + + | Glucose, | 383 (H) | 65 - 99 mg/dL | EXTERNAL | | | Fasting | | | LAB | | + + + + + + | BUN | 73 (H) | 8 - 25 mg/dL | EXTERNAL | | | | | | LAB | | + + + + + + | Creatinine | 8.1 (H) | 0.70 - 1.30 | EXTERNAL | | | | | mg/dL | LAB | | + + + + + + | BUN/Creatin | 9 | | EXTERNAL | | | ine [...] [address], | | | | | | [place] [address] | | | | + + + + + + + + | Specimen | + + | Blood specimen | | (specimen) | + + + +---------+ + + | Performing | Address | City/State/Zipcode | Phone Number | | Organization | | | | + +---------+ + + | EXTERNAL LAB | | | | + +---------+ + + Hemoglobin and Hematocrit (02/18/2017 9:56 PM PDT) + + + + + + | Component | Value | Ref Range | Performed | Pathologist | | | | | At | Signature | + + + + + + | Hgb | 12.7 (L) | 13.2 - 17.0 | EXTERNAL | | | | | g/dL | LAB | | + + + + + + | Hematocrit, | 36.8 (L)Comment: Testing | 39.0 - 50.0 % | EXTERNAL | | | POC | performed at [facility];[address] | | LAB | | | | [address];[place] | | | | | | [address] | | | | + + + + + + + + | Specimen | + + | | + + + +---------+ + + | Performing | Address | City/State/Zipcode | Phone Number | | Organization | | | | + +---------+ + + | EXTERNAL LAB | | | | + +---------+ + + POC Glucose (02/18/2017 9:05 PM PDT) + + + + + + | Component | Value | Ref Range | Performed | Pathologist | | | | | At | Signature | + + + + + + | Glucose, | 206 (H)Comment: Testing | 65 - 99 mg/dL | EXTERNAL | | | Fingerstick | performed at [facility];[address] | | LAB | | | | [address];[place] | | | | | | [address] | | | | + + + + + + + + | Specimen | + + | | + + + +---------+ + + | Performing | Address | City/State/Zipcode | Phone Number | | Organization | | | | + +---------+ + + | EXTERNAL LAB | | | | + +---------+ + + POC Glucose (02/18/2017 5:26 PM PDT) + + + + + + | Component | Value | Ref Range | Performed | Pathologist | | | | | At | Signature | + + + + + + | Glucose, | 340 (H)Comment: Testing | 65 - 99 mg/dL | EXTERNAL | | | Fingerstick | performed at [facility];[address] | | LAB | | | | [address];[place], [place] | | | | | | [address] | | | | + + + + + + + + | Specimen | + + | | + + + +---------+ + + | Performing | Address | City/State/Zipcode | Phone Number | | Organization | | | | + +---------+ + + | EXTERNAL LAB | | | | + +---------+ + + POC Glucose (02/18/2017 1:44 PM PDT) + + + + + + | Component | Value | Ref Range | Performed | Pathologist | | | | | At | Signature | + + + + + + | Glucose, | 143 (H)Comment: Testing | 65 - 99 mg/dL | EXTERNAL | | | Fingerstick | performed at [facility] [facility] | | LAB | | | | [address];[place], [place] | | | | | | [address] | | | | + + + + + + + + | Specimen | + + | | + + + +---------+ + + | Performing | Address | City/State/Zipcode | Phone Number | | Organization | | | | + +---------+ + + | EXTERNAL LAB | | | | + +---------+ + + IR Angioplasty/Atherectomy/Stent (02/18/2017 1:17 PM PDT) + + | Specimen | + + | | + + + + + | Impressions | Performed At | + + + | 1. Successful placement of a tunneled right internal jugular | | | central venous hemodialysis catheter. Tip position confirmed and ready | | | for immediate use. 2. In-stent stenosis and external compression of | | | the right brachiocephalic/subclavian stent and brachiocephalic SVC | | | confluence stenosis. Will plan to bring patient back in the near | | | future for angioplasty via the fistula. | | + + + + + + | Narrative | Performed At | + + + | IR DIALYSIS TUNNELED CATHETER INSERTION dated 02/18/2017 1:17 PM | | | CLINICAL DATA: End stage renal disease with brachial basilic right | | | upper extremity fistula status post brachiocephalic/subclavian stent | | | placement. Development of identification of the skin overlying the | | | fistula. Difficult central access. Unsuccessful attempted temporary | | | left internal jugular central venous catheter. A left femoral | | | temporary dialysis catheter was placed but is no longer working. | | | Request for tunneled catheter. COMPARISON STUDIES: Venogram | | | 09/11/2016 OPERATIONS: 1. Ultrasound guided left internal | | | jugular central venous access. 2. Creation subcutaneous tunnel left | | | anterior chest wall. 3. Placement tunneled hemodialysis catheter. | | | 4. Central venogram 5. Right brachiocephalic/subclavian venous | | | angioplasty OFFICE SYSTEM ANALYST: Jimenez Garnica MD, PhD, RPVI | | | PROCEDURE: Informed consent was obtained from the patient. | | | Continuous cardiac monitoring was performed throughout the | | | procedure. Sedation time: 80 minutes Fluoroscopy time: 9.5 | | | minutes Radiation dose: 281 mGy air kerma Sedation: 2.5 mg Versed | | | IV, 175 mcg Fentanyl IV Antibiotic: 900 mg clindamycin IV While | | | supine on the fluoroscopy table, the patient's neck and chest were | | | prepped and draped in a sterile fashion. Lidocaine was used for | | | local anesthesia after which percutaneous ultrasound-guided access was | | | obtained via the left internal jugular vein using micropuncture | | | technique. The microwire repeatedly deflected into the right | | | brachiocephalic/subclavian stent and would not pass into the SVC. An 8 | | | [place]ander sheath was placed and a central venogram was performed which | | | demonstrated a brachiocephalicA/SVC confluence focal stenosis. Using | | | multiple obliquities, the catheter and wire were successfully passed | | | beyond the stent into the inferior vena cava. Patient was heparinized | | | An 10 [place] sheath was placed. A wire and catheter were then | | | directed back into right brachiocephalic/subclavian stent. A 12 mm | | | angioplasty balloon was inserted and easily passed into the stent. The | | | balloon was inflated but watermelon seeded in both directions. With | | | the balloon inflated, it appeared that the wire may have gone | | | through a strut. Decision was made to pursue no further right | | | brachiocephalic/subclavian intervention and proceed with placement of | | | the dialysis catheter. Site on the anterior chest wall was then | | | selected for catheter insertion. This site was anesthetized with 1% | | | lidocaine and a small incision was made. A 14.5-[place]ander Palindrome 23 | | | cm tip to cuff hemodialysis catheter was then passed through the | | | subcutaneous tissues in an antegrade fashion to the access point on | | | the neck using a tunneling device. A peel-away introducer was then | | | advanced from the internal jugular access point into the central | | | venous system under fluoroscopy visualization. A Glidewire was | | | placed through the hemodialysis catheter and then inserted through the | | | peel-away introducer. The hemodialysis catheter was then inserted | | | through the peel-away introducer over the wire. Under fluoroscopy, | | | the hemodialysis catheter was positioned. Both ports were aspirated | | | and flushed with saline to confirm patency. The catheter was then | | | charged with 5000 U/ml heparinized normal saline per protocol. Nylon | | | suture was used for fixation of the catheter at the skin entry site. | | | Dermabond was applied to close the venopuncture access site on the | | | neck. Sterile dressings were applied. The patient tolerated the | | | procedure well without complication. FINDINGS: The left | | | internal jugular vein is widely patent. Ultrasound-guided access | | | obtained. Central venogram demonstrates a focal moderate stenosis at | | | the confluence of the brachiocephalic veins and superior vena cava. | | | The right brachiocephalic/subclavian stent as externally compressed | | | at the clavicle. Neck and chest collaterals are noted. Venogram from | | | the right subclavian vein demonstrates near occlusive stenosis of the | | | stent. Fluoroscopy demonstrates the support wire for the dialysis | | | catheter to be outside the stent struts. The hemodialysis catheter | | | tip is present at the upper right atrium. Both ports functioned | | | normally and may be used for hemodialysis access. | | + + + + + | Procedure Note | + + | Néstor, Rad Conversion - 02/04/2019 10:13 PM PDT IR DIALYSIS TUNNELED CATHETER INSERTION | | dated 02/18/2017 1:17 PM CLINICAL DATA: End stage renal disease with brachial basilic | | right upper extremity fistula status post brachiocephalic/subclavian stent placement. | | Development of identification of the skin overlying the fistula. Difficult central | | access. Unsuccessful attempted temporary left internal jugular central venous catheter. | | A left femoral temporary dialysis catheter was placed but is no longer working. Request | | for tunneled catheter. COMPARISON STUDIES: Venogram 09/11/2016 OPERATIONS:1. Ultrasound | | guided left internal jugular central venous access.2. Creation subcutaneous tunnel left | | anterior chest wall.3. Placement tunneled hemodialysis catheter.4. Central venogram5. | | Right brachiocephalic/subclavian venous angioplasty OFFICE SYSTEM ANALYST: Jimenez Garnica MD, | | PhD, RPVI PROCEDURE: Informed consent was obtained from the patient. Continuous | | cardiac monitoring was performed throughout the procedure. Sedation time: 80 | | minutesFluoroscopy time: 9.5 minutesRadiation dose: 281 mGy air kermaSedation: 2.5 mg | | Versed IV, 175 mcg Fentanyl IVAntibiotic: 900 mg clindamycin IV While supine on the | | fluoroscopy table, the patient's neck and chest were prepped and draped in a sterile | | fashion. Lidocaine was used for local anesthesia after which percutaneous | | ultrasound-guided access was obtained via the left internal jugular vein using | | micropuncture technique. The microwire repeatedly deflected into the right | | brachiocephalic/subclavian stent and would not pass into the SVC. An 8 [place] sheath was | | placed and a central venogram was performed which demonstrated a brachiocephalicA/SVC | | confluence focal stenosis. Using multiple obliquities, the catheter and wire were | | successfully passed beyond the stent into the inferior vena cava. Patient was | | heparinized An 10 [place] sheath was placed. A wire and catheter were then directed back | | into right brachiocephalic/subclavian stent. A 12 mm angioplasty balloon was inserted | | and easily passed into the stent. The balloon was inflated but watermelon seeded in both | | directions. With the balloon inflated, it appeared that the wire may have gone through | | a strut. Decision was made to pursue no further right brachiocephalic/subclavian | | intervention and proceed with placement of the dialysis catheter. Site on the anterior | | chest wall was then selected for catheter insertion. This site was anesthetized with 1% | | lidocaine and a small incision was made. A 14.5-[place] Palindrome 23 cm tip to cuff | | hemodialysis catheter was then passed through the subcutaneous tissues in an antegrade | | fashion to the access point on the neck using a tunneling device. A peel-away | | introducer was then advanced from the internal jugular access point into the central | | venous system under fluoroscopy visualization. A Glidewire was placed through the | | hemodialysis catheter and then inserted through the peel-away introducer. The | | hemodialysis catheter was then inserted through the peel-away introducer over the wire. | | Under fluoroscopy, the hemodialysis catheter was positioned. Both ports were aspirated | | and flushed with saline to confirm patency. The catheter was then charged with 5000 | | U/ml heparinized normal saline per protocol. Nylon suture was used for fixation of the | | catheter at the skin entry site. Dermabond was applied to close the venopuncture access | | site on the neck. Sterile dressings were applied. The patient tolerated the procedure | | well without complication. FINDINGS: The left internal jugular vein is widely patent. | | Ultrasound-guided access obtained. Central venogram demonstrates a focal moderate | | stenosis at the confluence of the brachiocephalic veins and superior vena cava. The | | right brachiocephalic/subclavian stent as externally compressed at the clavicle. Neck | | and chest collaterals are noted. Venogram from the right subclavian vein demonstrates | | near occlusive stenosis of the stent. Fluoroscopy demonstrates the support wire for the | | dialysis catheter to be outside the stent struts. The hemodialysis catheter tip is | | present at the upper right atrium. Both ports functioned normally and may be used for | | hemodialysis access. IMPRESSION: 1. Successful placement of a tunneled right internal | | jugular central venous hemodialysis catheter. Tip position confirmed and ready for | | immediate use.2. In-stent stenosis and external compression of the right | | brachiocephalic/subclavian stent and brachiocephalic SVC confluence stenosis. Will plan | | to bring patient back in the near future for angioplasty via the fistula. Electronically | | signed by Jimenez Garnica MD on 02/18/2017 2:31 PM | + + IR Placement Tunneled CV Cath (02/18/2017 1:17 PM PDT) + + | Specimen | + + | | + + + + + | Impressions | Performed At | + + + | 1. Successful placement of a tunneled right internal jugular | | | central venous hemodialysis catheter. Tip position confirmed and ready | | | for immediate use. 2. In-stent stenosis and external compression of | | | the right brachiocephalic/subclavian stent and brachiocephalic SVC | | | confluence stenosis. Will plan to bring patient back in the near | | | future for angioplasty via the fistula. | | + + + + + + | Narrative | Performed At | + + + | IR DIALYSIS TUNNELED CATHETER INSERTION dated 02/18/2017 1:17 PM | | | CLINICAL DATA: End stage renal disease with brachial basilic right | | | upper extremity fistula status post brachiocephalic/subclavian stent | | | placement. Development of identification of the skin overlying the | | | fistula. Difficult central access. Unsuccessful attempted temporary | | | left internal jugular central venous catheter. A left femoral | | | temporary dialysis catheter was placed but is no longer working. | | | Request for tunneled catheter. COMPARISON STUDIES: Venogram | | | 09/11/2016 OPERATIONS: 1. Ultrasound guided left internal | | | jugular central venous access. 2. Creation subcutaneous tunnel left | | | anterior chest wall. 3. Placement tunneled hemodialysis catheter. | | | 4. Central venogram 5. Right brachiocephalic/subclavian venous | | | angioplasty OFFICE SYSTEM ANALYST: Jimenez Garnica MD, PhD, RPVI | | | PROCEDURE: Informed consent was obtained from the patient. | | | Continuous cardiac monitoring was performed throughout the | | | procedure. Sedation time: 80 minutes Fluoroscopy time: 9.5 | | | minutes Radiation dose: 281 mGy air kerma Sedation: 2.5 mg Versed | | | IV, 175 mcg Fentanyl IV Antibiotic: 900 mg clindamycin IV While | | | supine on the fluoroscopy table, the patient's neck and chest were | | | prepped and draped in a sterile fashion. Lidocaine was used for | | | local anesthesia after which percutaneous ultrasound-guided access was | | | obtained via the left internal jugular vein using micropuncture | | | technique. The microwire repeatedly deflected into the right | | | brachiocephalic/subclavian stent and would not pass into the SVC. An 8 | | | [place] sheath was placed and a central venogram was performed which | | | demonstrated a brachiocephalicA/SVC confluence focal stenosis. Using | | | multiple obliquities, the catheter and wire were successfully passed | | | beyond the stent into the inferior vena cava. Patient was heparinized | | | An 10 [place] sheath was placed. A wire and catheter were then | | | directed back into right brachiocephalic/subclavian stent. A 12 mm | | | angioplasty balloon was inserted and easily passed into the stent. The | | | balloon was inflated but watermelon seeded in both directions. With | | | the balloon inflated, it appeared that the wire may have gone | | | through a strut. Decision was made to pursue no further right | | | brachiocephalic/subclavian intervention and proceed with placement of | | | the dialysis catheter. Site on the anterior chest wall was then | | | selected for catheter insertion. This site was anesthetized with 1% | | | lidocaine and a small incision was made. A 14.5-[place] Palindrome 23 | | | cm tip to cuff hemodialysis catheter was then passed through the | | | subcutaneous tissues in an antegrade fashion to the access point on | | | the neck using a tunneling device. A peel-away introducer was then | | | advanced from the internal jugular access point into the central | | | venous system under fluoroscopy visualization. A Glidewire was | | | placed through the hemodialysis catheter and then inserted through the | | | peel-away introducer. The hemodialysis catheter was then inserted | | | through the peel-away introducer over the wire. Under fluoroscopy, | | | the hemodialysis catheter was positioned. Both ports were aspirated | | | and flushed with saline to confirm patency. The catheter was then | | | charged with 5000 U/ml heparinized normal saline per protocol. Nylon | | | suture was used for fixation of the catheter at the skin entry site. | | | Dermabond was applied to close the venopuncture access site on the | | | neck. Sterile dressings were applied. The patient tolerated the | | | procedure well without complication. FINDINGS: The left | | | internal jugular vein is widely patent. Ultrasound-guided access | | | obtained. Central venogram demonstrates a focal moderate stenosis at | | | the confluence of the brachiocephalic veins and superior vena cava. | | | The right brachiocephalic/subclavian stent as externally compressed | | | at the clavicle. Neck and chest collaterals are noted. Venogram from | | | the right subclavian vein demonstrates near occlusive stenosis of the | | | stent. Fluoroscopy demonstrates the support wire for the dialysis | | | catheter to be outside the stent struts. The hemodialysis catheter | | | tip is present at the upper right atrium. Both ports functioned | | | normally and may be used for hemodialysis access. | | + + + + + | Procedure Note | + + | Khalif Palm Conversion - 02/04/2019 10:13 PM PDT IR DIALYSIS TUNNELED CATHETER INSERTION | | dated 02/18/2017 1:17 PM CLINICAL DATA: End stage renal disease with brachial basilic | | right upper extremity fistula status post brachiocephalic/subclavian stent placement. | | Development of identification of the skin overlying the fistula. Difficult central | | access. Unsuccessful attempted temporary left internal jugular central venous catheter. | | A left femoral temporary dialysis catheter was placed but is no longer working. Request | | for tunneled catheter. COMPARISON STUDIES: Venogram 09/11/2016 OPERATIONS:1. Ultrasound | | guided left internal jugular central venous access.2. Creation subcutaneous tunnel left | | anterior chest wall.3. Placement tunneled hemodialysis catheter.4. Central venogram5. | | Right brachiocephalic/subclavian venous angioplasty OFFICE SYSTEM ANALYST: Jimenez Garnica MD, | | PhD, RPVI PROCEDURE: Informed consent was obtained from the patient. Continuous | | cardiac monitoring was performed throughout the procedure. Sedation time: 80 | | minutesFluoroscopy time: 9.5 minutesRadiation dose: 281 mGy air kermaSedation: 2.5 mg | | Versed IV, 175 mcg Fentanyl IVAntibiotic: 900 mg clindamycin IV While supine on the | | fluoroscopy table, the patient's neck and chest were prepped and draped in a sterile | | fashion. Lidocaine was used for local anesthesia after which percutaneous | | ultrasound-guided access was obtained via the left internal jugular vein using | | micropuncture technique. The microwire repeatedly deflected into the right | | brachiocephalic/subclavian stent and would not pass into the SVC. An 8 [place] sheath was | | placed and a central venogram was performed which demonstrated a brachiocephalicA/SVC | | confluence focal stenosis. Using multiple obliquities, the catheter and wire were | | successfully passed beyond the stent into the inferior vena cava. Patient was | | heparinized An 10 [place] sheath was placed. A wire and catheter were then directed back | | into right brachiocephalic/subclavian stent. A 12 mm angioplasty balloon was inserted | | and easily passed into the stent. The balloon was inflated but watermelon seeded in both | | directions. With the balloon inflated, it appeared that the wire may have gone through | | a strut. Decision was made to pursue no further right brachiocephalic/subclavian | | intervention and proceed with placement of the dialysis catheter. Site on the anterior | | chest wall was then selected for catheter insertion. This site was anesthetized with 1% | | lidocaine and a small incision was made. A 14.5-[place] Palindrome 23 cm tip to cuff | | hemodialysis catheter was then passed through the subcutaneous tissues in an antegrade | | fashion to the access point on the neck using a tunneling device. A peel-away | | introducer was then advanced from the internal jugular access point into the central | | venous system under fluoroscopy visualization. A Glidewire was placed through the | | hemodialysis catheter and then inserted through the peel-away introducer. The | | hemodialysis catheter was then inserted through the peel-away introducer over the wire. | | Under fluoroscopy, the hemodialysis catheter was positioned. Both ports were aspirated | | and flushed with saline to confirm patency. The catheter was then charged with 5000 | | U/ml heparinized normal saline per protocol. Nylon suture was used for fixation of the | | catheter at the skin entry site. Dermabond was applied to close the venopuncture access | | site on the neck. Sterile dressings were applied. The patient tolerated the procedure | | well without complication. FINDINGS: The left internal jugular vein is widely patent. | | Ultrasound-guided access obtained. Central venogram demonstrates a focal moderate | | stenosis at the confluence of the brachiocephalic veins and superior vena cava. The | | right brachiocephalic/subclavian stent as externally compressed at the clavicle. Neck | | and chest collaterals are noted. Venogram from the right subclavian vein demonstrates | | near occlusive stenosis of the stent. Fluoroscopy demonstrates the support wire for the | | dialysis catheter to be outside the stent struts. The hemodialysis catheter tip is | | present at the upper right atrium. Both ports functioned normally and may be used for | | hemodialysis access. IMPRESSION: 1. Successful placement of a tunneled right internal | | jugular central venous hemodialysis catheter. Tip position confirmed and ready for | | immediate use.2. In-stent stenosis and external compression of the right | | brachiocephalic/subclavian stent and brachiocephalic SVC confluence stenosis. Will plan | | to bring patient back in the near future for angioplasty via the fistula. Electronically | | signed by Jimenez Garnica MD on 02/18/2017 2:31 PM | + + US Guided Vascular Access (02/18/2017 1:16 PM PDT) + + | Specimen | [...] Palm Conversion - 02/04/2019 10:13 PM PDT This Point of Care (POC) ultrasound | | image has been reviewed andinterpreted by the physician identified as the performing | | physician in theassociated interpretation and report. | | | + + POC Glucose (02/18/2017 6:01 AM PDT) + + + + + + | Component | Value | Ref Range | Performed | Pathologist | | | | | At | Signature | + + + + + + | Glucose, | 233 (H)Comment: Testing | 65 - 99 mg/dL | EXTERNAL | | | Fingerstick | performed at [facility];[address] | | LAB | | | | [address];[place] | | | | | | [address] | | | | + + + + + + + + | Specimen | + + | | + + + +---------+ + + | Performing | Address | City/State/Zipcode | Phone Number | | Organization | | | | + +---------+ + + | EXTERNAL LAB | | | | + +---------+ + + Basic Metabolic Panel (02/18/2017 5:35 AM PDT) + + + + [...] + + + | Cl | 93 (L) | 99 - 109 mmol/L | EXTERNAL | | | | | | LAB | | + + + + + + | CO2 | 17 (L) | 23 - 32 mmol/L | EXTERNAL | | | | | | LAB | | + + + + + + | Anion Gap | 23 (H) | 5 - 20 mmol/L | EXTERNAL | | | | | | LAB | | + + + + + + | Glucose, | 265 (H) | 65 - 99 mg/dL | EXTERNAL | | | Fasting | | | LAB | | + + + + + + | BUN | 113 (H) | 8 - 25 mg/dL | EXTERNAL | | | | | | LAB | | + + + + + + | Creatinine | 11.8 (H) | 0.70 - 1.30 | EXTERNAL | | | | | mg/dL | LAB | | + + + + + + | BUN/Creatin | 10 | | EXTERNAL | | | ine [...] | | | | | | at [facility], [address] | | | | | [address], | | | | | | [place] [address] | | | | + + + + + + + + | Specimen | + + | Blood specimen | | (specimen) | + + + +---------+ + + | Performing | Address | City/State/Zipcode | Phone Number | | Organization | | | | + +---------+ + + | EXTERNAL LAB | | | | + +---------+ + + POC Glucose (02/17/2017 9:24 PM PDT) + + + + + + | Component | Value | Ref Range | Performed | Pathologist | | | | | At | Signature | + + + + + + | Glucose, | 309 (H)Comment: Testing | 65 - 99 mg/dL | EXTERNAL | | | Fingerstick | performed at [facility];[address] | | LAB | | | | [address];[place], [place] | | | | | | [address] | | | | + + + + + + + + | Specimen | + + | | + + + +---------+ + + | Performing | Address | City/State/Zipcode | Phone Number | | Organization | | | | + +---------+ + + | EXTERNAL LAB | | | | + +---------+ + + POC Glucose (02/17/2017 4:08 PM PDT) + + + + + + | Component | Value | Ref Range | Performed | Pathologist | | | | | At | Signature | + + + + + + | Glucose, | 174 (H)Comment: Testing | 65 - 99 mg/dL | EXTERNAL | | | Fingerstick | performed at [facility];[address] | | LAB | | | | [address];[place] | | | | | | [address] | | | | + + + + + + + + | Specimen | + + | | + + + +---------+ + + | Performing | Address | City/State/Zipcode | Phone Number | | Organization | | | | + +---------+ + + | EXTERNAL LAB | | | | + +---------+ + + POC Glucose (02/17/2017 11:18 AM PDT) + + + + + + | Component | Value | Ref Range | Performed | Pathologist | | | | | At | Signature | + + + + + + | Glucose, | 213 (H)Comment: Testing | 65 - 99 mg/dL | EXTERNAL | | | Fingerstick | performed at [facility];[address] | | LAB | | | | [address];[place] | | | | | | [address] | | | | + + + + + + + + | Specimen | + + | | + + + +---------+ + + | Performing | Address | City/State/Zipcode | Phone Number | | Organization | | | | + +---------+ + + | EXTERNAL LAB | | | | + +---------+ + + POC Glucose (02/17/2017 5:57 AM PDT) + + + + + + | Component | Value | Ref Range | Performed | Pathologist | | | | | At | Signature | + + + + + + | Glucose, | 241 (H)Comment: Testing | 65 - 99 mg/dL | EXTERNAL | | | Fingerstick | performed at [facility];[address] | | LAB | | | | [address];[place] | | | | | | [address] | | | | + + + + + + + + | Specimen | + + | | + + + +---------+ + + | Performing | Address | City/State/Zipcode | Phone Number | | Organization | | | | + +---------+ + + | EXTERNAL LAB | | | | + +---------+ + + Sedimentation rate, automated (02/17/2017 4:26 AM PDT) + + + + + + | Component | Value | Ref Range | Performed | Pathologist | | | | | At | Signature | + + + + + + | Sed Rate | 26 (H)Comment: Testing | 0 - 20 mm/Hr | EXTERNAL | | | | performed at [facility], [address] | | LAB | | | | [place] [address], | | | | | | [place] [address] | | | | + + + [...] + +---------+ + + External Lab: CBC (02/17/2017 4:26 AM PDT) + + +---- + + + | Component | Value | Ref Range | Performed | Pathologist | | | | | At | Signature | + + +---- + + + | WBC | 6.65 | 3.8 0 - 11.00 | EXTERNAL | | | | | K/u L | LAB | | + + +---- + + + | RED CELL | 4.41 | 4.2 0 - 5.70 | EXTERNAL | | | COUNT | | M/u L | LAB | | + + +---- + + + | Hgb | 12.6 (L) | 13. 2 - 17.0 | EXTERNAL | | | | | g/d L | LAB | | + + +---- + + + | Hematocrit, | 38.5 (L) | 39. 0 - 50.0 % | EXTERNAL | | | POC | | | LAB | | + + +---- + + + | MCV | 87.2 | 80. 0 - 100.0 fl | EXTERNAL | | | | | | LAB | | + + +---- + + + | MCH | 28.6 | 27. 0 - 34.0 pg | EXTERNAL | | | | | | LAB | | + + +---- + + + | MCHC | 32.8 | 32. 0 - 35.5 | EXTERNAL | | | | | g/d L | LAB | | + + +---- + + + | RDW-CV | 63.0 (H) | 37 - 53 fl | EXTERNAL | | | | | | LAB | | + + +---- + + + | Platelet | 174 | 150 - 400 K/uL | EXTERNAL | | | Count | | | LAB | | | Plasma | | | | | + + +---- + + + | MPV | 7.2 | fl | EXTERNAL | | | | | | LAB | | + + +---- + + + | Differentia | MANUAL | | EXTERNAL | | | l Type | | | LAB | | + + +---- + + + | Segmented | 96 | % | EXTERNAL | | | Neutrophils | | | LAB | | | Manual | | | | | + + +---- + + + | Lymphocytes | 4 | % | EXTERNAL | | | Manual | | | LAB | | + + +---- + + + | Absolute | 6.38 | 1.9 0 - 7.40 | EXTERNAL | | | Neutrophils | | K/u L | LAB | | + + +---- + + + | Absolute | 0.27 (L) | 1.0 0 - 3.90 | EXTERNAL | | | Lymphocytes | | K/u L | LAB | | + + +---- + + + | RBC | 1+Comment: | | EXTERNAL | | | Morphology | HYPO2+ANISONORMAL PLT | | LAB | | | | MORPHTesting performed | | | | | | at [facility], [address] | | | | | | [address], | | | | | | [place] [address] | | | | | |Testing performed at [facility], [address] [facility], [place] [address] | | | | | | | [...] | + +---------+ + + C-Reactive Protein (02/17/2017 4:26 AM PDT) + + + + + + | Component | Value | Ref Range | Performed | Pathologist | | | | | At | Signature | + + + + + + | CRP | 0.7 (H)Comment: Testing | mg/dL | EXTERNAL | | | | performed at [facility], [address] | | LAB | | | | [place], | | | | | | [place] [address] | | | | + + + + + + + + | Specimen | + + | Blood specimen | | (specimen) | + + + +---------+ + + | Performing | Address | City/State/Zipcode | Phone Number | | Organization | | | | + +---------+ + + | EXTERNAL LAB | | | | + +---------+ + + Hemoglobin A1C (02/17/2017 4:26 AM PDT) + + + + + + | Component | Value | Ref Range | Performed | Pathologist | | | | | At | Signature | + + + + + + | Hemoglobin | 5.5Comment: The [employer] | 4.0 - 6.0 % | EXTERNAL [...] + + + + | Glycohemogl | 111Comment: The ADA | mg/dL | EXTERNAL | [...] | | | | | performed at [facility], [address] | | | | | | [place], | | | | | | [place] [address] | | | | + + + [...] + +---------+ + + Basic Metabolic Panel (02/17/2017 4:26 AM PDT) + + + + + [...] | 4.1 | 3.5 - 4.9 | EXTERNAL | | | | | mmol/L | LAB | | + + + + + + | Cl | 96 (L) | 99 - 109 mmol/L | EXTERNAL | | | | | | LAB | | + + + + + + | CO2 | 18 (L) | 23 - 32 mmol/L | EXTERNAL | | | | | | LAB | | + + + + + + | Anion Gap | 20 | 5 - 20 mmol/L | EXTERNAL | | | | | | LAB | | + + + + + + | Glucose, | 357 (H) | 65 - 99 mg/dL | EXTERNAL | | | Fasting | | | LAB | | + + + + + + | BUN | 71 (H) | 8 - 25 mg/dL | EXTERNAL | | | | | | LAB | | + + + + + + | Creatinine | 9.7 (H) | 0.70 - 1.30 | EXTERNAL | | | | | mg/dL | LAB | | + + + + + + | BUN/Creatin | 7 | | EXTERNAL | | | ine Ratio | | | LAB | | + + + + + + | Calcium | 7.7 (L) | 8.5 - 10.5 | EXTERNAL [...] | | | | | | at [facility], [address] | | | | | | [facility], | | | | | | [place] [address] | | | | + + + + + + + + | Specimen | + + | Blood specimen | | (specimen) | + + + +---------+ + + | Performing | Address | City/State/Zipcode | Phone Number | | Organization | | | | + +---------+ + + | EXTERNAL LAB | | | | + +---------+ + + POC Glucose (02/16/2017 8:46 PM PDT) + + + + + + | Component | Value | Ref Range | Performed | Pathologist | | | | | At | Signature | + + + + + + | Glucose, | 204 (H)Comment: Testing | 65 - 99 mg/dL | EXTERNAL | | | Fingerstick | performed at [facility];[address] | | LAB | | | | [address];[place] | | | | | | [address] | | | | + + + + + + + + | Specimen | + + | | + + + +---------+ + + | Performing | Address | City/State/Zipcode | Phone Number | | Organization | | | | + +---------+ + + | EXTERNAL LAB | | | | + +---------+ + + POC Glucose (02/16/2017 4:07 PM PDT) + + + + + + | Component | Value | Ref Range | Performed | Pathologist | | | | | At | Signature | + + + + + + | Glucose, | 102 (H)Comment: Testing | 65 - 99 mg/dL | EXTERNAL | | | Fingerstick | performed at [facility] | | LAB | | | | [address];[place] | | | | | | [address] | | | | + + + + + + + + | Specimen | + + | | + + + +---------+ + + | Performing | Address | City/State/Zipcode | Phone Number | | Organization | | | | + +---------+ + + | EXTERNAL LAB | | | | + +---------+ + + Basic Metabolic Panel (02/16/2017 1:34 PM PDT) + + + + + [...] | 4.1 | 3.5 - 4.9 | EXTERNAL | | | | | mmol/L | LAB | | + + + + + + | Cl | 103 | 99 - 109 mmol/L | EXTERNAL | | | | | | LAB | | + + + + + + | CO2 | 15 (L) | 23 - 32 mmol/L | EXTERNAL | | | | | | LAB | | + + + + + + | Anion Gap | 20 | 5 - 20 mmol/L | EXTERNAL | | | | | | LAB | | + + + + + + | Glucose, | 84 | 65 - 99 mg/dL | EXTERNAL | | | Fasting | | | LAB | | + + + + + + | BUN | 124 (H) | 8 - 25 mg/dL | EXTERNAL | | | | | | LAB | | + + + + + + | Creatinine | 13 (H) | 0.70 - 1.30 | EXTERNAL | | | | | mg/dL | LAB | | + + + + + + | BUN/Creatin | 10 | | EXTERNAL | | | ine Ratio | | | LAB | | + + + + + + | Calcium | 7.0 (L) | 8.5 - 10.5 | EXTERNAL [...] | | | | | | at [facility];[address] [place] [address] | | | | | | [facility];[place] [address] | | | | + + + + + + + + | Specimen | + + | Blood specimen | | (specimen) | + + + +---------+ + + | Performing | Address | City/State/Zipcode | Phone Number | | Organization | | | | + +---------+ + + | EXTERNAL LAB | | | | + +---------+ + + Hepatitis B Surface Ag (02/16/2017 1:33 PM PDT) + + + + + + | Component | Value | Ref Range | Performed | Pathologist | | | | | At | Signature | + + + + + + | HEP B | NON REACTIVEComment: | | EXTERNAL | | | SURFACE | Testing performed at | | LAB | | | ANTIBODY | [facility], [address] | | | | | | [place] | | | | | | [address] | | | | + + + [...] +---------+ + + XR Chest 1 Vw (02/16/2017 12:49 PM PDT) + + | Specimen | + + | | + + + + + | Impressions | Performed At | + + + | 1. Left IJ central line extends along the left lateral aspect of | | | the aortic arch, curving inferior to the aortic arch. This is in | | | abnormal position, and should be reoriented. This was called to the | | | patient's nurse Tracey at 12:55 PM date of study. 2. No | | | pneumothorax. Electronically signed by Wilton Lentz MD on | | | 02/16/2017 1:00 PM | | + + + + + + | Narrative | Performed At | + + + | HISTORY: Evaluate tubes and lines. COMPARISON: 02/15/17. | | | TECHNIQUE: AP portable film of the chest at 1240 hours FINDINGS: | | | Heart size is normal. Lungs are clear. Left IJ Carlos catheter | | | extends along the lateral aspect of the aortic arch. This should be | | | repositioned. No pneumothorax. Left subclavian stent again noted. | | + + + + + | Procedure Note | + + | Néstor, Rad Conversion - 02/04/2019 10:13 PM PDT HISTORY:Evaluate tubes and lines. | | COMPARISON:02/15/17. TECHNIQUE:AP portable film of the chest at 1240 hours | | FINDINGS:Heart size is normal. Lungs are clear. Left IJ Carlos catheter extends along | | the lateral aspect of the aortic arch. This should be repositioned. No pneumothorax. | | Left subclavian stent again noted. IMPRESSION: 1. Left IJ central line extends along | | the left lateral aspect of the aortic arch, curving inferior to the aortic arch. This is | | in abnormal position, and should be reoriented. This was called to the patient's nurse | | Tracey at 12:55 PM date of study.2. No pneumothorax. | |FINDINGS: | |Heart size is normal. Lungs are clear. Left IJ Carlos catheter extends along the lateral a spect of the aortic arch. This should be repositioned. No pneumothorax. Left subclavian sten t again noted. | | | |IMPRESSION: | |1. Left IJ central line extends along the left lateral aspect of the aortic arch, curving inferior to the aortic arch. This is in abnormal position, and should be reoriented. This wa s called to the patient's nurse Tracey at 12:55 PM date of study. | |2. No pneumothorax. | | | | | + + Basic Metabolic Panel (02/16/2017 11:55 AM PDT) + + + + + + | Component | Value | Ref Range | Performed | Pathologist | | | | | At | Signature | + + + + + + | Na | 135 | 135 - 145 | EXTERNAL | | | | | mmol/L | LAB | | + + + + + + | K | 4.3 | 3.5 - 4.9 | EXTERNAL | | | | | mmol/L | LAB | | + + + + + + | Cl | 103 | 99 - 109 mmol/L | EXTERNAL | | | | | | LAB | | + + + + + + | CO2 | 17 (L) | 23 - 32 mmol/L | EXTERNAL | | | | | | LAB | | + + + + + + | Anion Gap | 19 | 5 - 20 mmol/L | EXTERNAL | | | | | | LAB | | + + + + + + | Glucose, | 81 | 65 - 99 mg/dL | EXTERNAL | | | Fasting | | | LAB | | + + + + + + | BUN | 125 (H) | 8 - 25 mg/dL | EXTERNAL | | | | | | LAB | | + + + + + + | Creatinine | 13.0 (H) | 0.70 - 1.30 | EXTERNAL | | | | | mg/dL | LAB | | + + + + + + | BUN/Creatin | 10 | | EXTERNAL | | | ine Ratio | | | LAB | | + + + + + + | Calcium | 7.6 (L) | 8.5 - 10.5 | EXTERNAL [...] | | | | | | at [facility], [address] | | | | | | [place] [address], | | | | | | [place] [address] | | | | + + + + + + + + | Specimen | + + | Blood specimen | | (specimen) | + + + +---------+ + + | Performing | Address | City/State/Zipcode | Phone Number | | Organization | | | | + +---------+ + + | EXTERNAL LAB | | | | + +---------+ + + POC Glucose (02/16/2017 11:27 AM PDT) + + + + + + | Component | Value | Ref Range | Performed | Pathologist | | | | | At | Signature | + + + + + + | Glucose, | 101 (H)Comment: Testing | 65 - 99 mg/dL | EXTERNAL | | | Fingerstick | performed at [facility];[address] | | LAB | | | | [address];[place] | | | | | | [address] | | | | + + + + + + + + | Specimen | + + | | + + + +---------+ + + | Performing | Address | City/State/Zipcode | Phone Number | | Organization | | | | + +---------+ + + | EXTERNAL LAB | | | | + +---------+ + + Culture, Urine (02/16/2017 7:45 AM PDT) + + | Specimen | + + | Urine specimen | | (specimen) | + + + + + | Narrative | Performed At | + + + | Specimen Description URINE,CLEAN CATCH CULTURE | EXTERNAL LAB | | 10,000 TO 50,000 CFU/ML | | | ALPHA HEMOLYTIC | | | STREPTOCOCCIAbnormal | | | NO FURTHER WORKUP | | + + + + +---------+ + + | Performing | Address | City/State/Zipcode | Phone Number | | Organization | | | | + +---------+ + + | EXTERNAL LAB | | | | + +---------+ + + Urinalysis, Microscopic Only (02/16/2017 7:45 AM PDT) + + + + + [...] + + + + | Epithelial | NONE SEEN | /lpf | EXTERNAL | | | Cells | | | LAB | | + + + + + + | Bacteria, | NONE SEENComment: | | EXTERNAL | | | UA | Testing performed at | | LAB | | | | [facility], [address] | | | | | | [place] | | | | | | [address] | | | | + + + + + + + + | Specimen | + + | | + + + +---------+ + + | Performing | Address | City/State/Zipcode | Phone Number | | Organization | | | | + +---------+ + + | EXTERNAL LAB | | | | + +---------+ + + Urinalysis with Microscopic if Indicated (02/16/2017 7:45 AM PDT) + + + + + + | Component | Value | Ref Range | Performed | Pathologist | | | | | At | Signature | + + + + + + | Color | STRAW | | EXTERNAL | | | | | | LAB | | + + + + + + | Clarity | CLEAR | | EXTERNAL | | | | | | LAB | | + + + + + + | Specific | 1.012 | 1.002 - 1.030 | EXTERNAL | | | [place] | | | LAB | | + + + + + + | Leukocyte | NEGATIVEComment: | | EXTERNAL | | | Esterase, [...] + + + | Protein, | 100 (A) | mg/dL | EXTERNAL | | | Urine | | | LAB | | + + + + + + | pH, Urine | 6.0 | 5.0 - 8.0 | EXTERNAL | [...] + + + | Glucose, | 150 (A)Comment: Testing | mg/dL | EXTERNAL | | | Urine | performed at [facility], [address] | | LAB | | | | [place], | | | | | | [place] [address] | | | | + + + + + + + + | Specimen | + + | Urine specimen | | (specimen) | + + + +---------+ + + | Performing | Address | City/State/Zipcode | Phone Number | | Organization | | | | + +---------+ + + | EXTERNAL LAB | | | | + +---------+ + + POC Glucose (02/16/2017 6:03 AM PDT) + + + + + + | Component | Value | Ref Range | Performed | Pathologist | | | | | At | Signature | + + + + + + | Glucose, | 75Comment: Testing | 65 - 99 mg/dL | EXTERNAL | | | Fingerstick | performed at [facility];[address] | | LAB | | | | [address];[place] | | | | | | [address] | | | | + + + + + + + + | Specimen | + + | | + + + +---------+ + + | Performing | Address | City/State/Zipcode | Phone Number | | Organization | | | | + +---------+ + + | EXTERNAL LAB | | | | + +---------+ + + External Lab: CBC (02/16/2017 5:02 AM PDT) + + + + + + | Component | Value | Ref Range | Performed | Pathologist | | | | | At | Signature | + + + + + + | WBC | 6.43 | 3.80 - 11.00 | EXTERNAL | | | | | K/uL | LAB | | + + + + + + | RED CELL | 4.17 (L) | 4.20 - 5.70 | EXTERNAL | | | COUNT | | M/uL | LAB | | + + + + + + | Hgb | 12.3 (L) | 13.2 - 17.0 | EXTERNAL | | | | | g/dL | LAB | | + + + + + + | Hematocrit, | 36.9 (L) | 39.0 - 50.0 % | EXTERNAL | | | POC | | | LAB | | + + + + + + | MCV | 88.3 | 80.0 - 100.0 fl | EXTERNAL | | | | | | LAB | | + + + + + + | MCH | 29.4 | 27.0 - 34.0 pg | EXTERNAL | | | | | | LAB | | + + + + + + | MCHC | 33.2 | 32.0 - 35.5 | EXTERNAL | | | | | g/dL | LAB | | + + + + + + | RDW-CV | 62.1 (H) | 37 - 53 fl | EXTERNAL | | | | | | LAB | | + + + + + + | Platelet | 193 | 150 - 400 K/uL | EXTERNAL [...] + + + | % Segmented | 61.06 | % | EXTERNAL | | | | | | LAB | | | Neutrophils | | | | | + + + + + + | % | 12.63 | % | EXTERNAL | | | Lymphocytes | | | LAB | | + + + + + + | % Monocytes | 5.62 | % | EXTERNAL | | | | | | LAB | | + + + + + + | % | 19.88 | % | EXTERNAL | | | Eosinophils | | | LAB | | + + + + + + | % Basophils | 0.81 | % | EXTERNAL | | | | | | LAB | | + + + + + + | Absolute | 3.93 | 1.90 - 7.40 | EXTERNAL | | | Segmented | | K/uL | LAB | | | Neutrophils | | | | | + + + + + + | Absolute | 0.81 (L) | 1.00 - 3.90 | EXTERNAL | | | Lymphocytes | | K/uL | LAB | | + + + + + + | Absolute | 0.36 | 0.00 - 0.80 | EXTERNAL | [...] LAB | | | | performed at [facility], [address] | | | | | | [place], | | | | | | [place] [address] | | | | | | | [...] | | + +---------+ + + Phosphorus (02/16/2017 5:02 AM PDT) + + + + + + | Component | Value | Ref Range | Performed | Pathologist | | | | | At | Signature | + + + + + + | PHOSPHORUS | 7.5 (H)Comment: Testing | 2.3 - 4.8 mg/dL | EXTERNAL | | | | performed at [facility], [address] | | LAB | | | | [place], | | | | | | [place] [address] | | | | + + + + + + + + | Specimen | + + | Blood specimen | | (specimen) | + + + +---------+ + + | Performing | Address | City/State/Zipcode | Phone Number | | Organization | | | | + +---------+ + + | EXTERNAL LAB | | | | + +---------+ + + Magnesium (02/16/2017 5:02 AM PDT) + + + + + + | Component | Value | Ref Range | Performed | Pathologist | | | | | At | Signature | + + + + + + | Magnesium | 3.1 (H)Comment: Testing | 1.7 - 2.4 mg/dL | EXTERNAL | | | | performed at [facility], [address] | | LAB | | | | [place], | | | | | | [place] [address] | | | | + + + + + + + + | Specimen | + + | Blood specimen | | (specimen) | + + + +---------+ + + | Performing | Address | City/State/Zipcode | Phone Number | | Organization | | | | + +---------+ + + | EXTERNAL LAB | | | | + +---------+ + + Bilirubin, Direct (02/16/2017 5:02 AM PDT) + + + + + + | Component | Value | Ref Range | Performed | Pathologist | | | | | At | Signature | + + + + + + | Bilirubin | 0.2Comment: Testing | 0.0 - 0.3 mg/dL | EXTERNAL | | | Direct | performed at [facility], [address] | | LAB | | | | [place], | | | | | | [place] [address] | | | | + + + + + + + + | Specimen | + + | | + + + +---------+ + + | Performing | Address | City/State/Zipcode | Phone Number | | Organization | | | | + +---------+ + + | EXTERNAL LAB | | | | + +---------+ + + Comprehensive Metabolic Panel (02/16/2017 5:02 AM PDT) + + + + + + | Component | Value | Ref Range | Performed | Pathologist | | | | | At | Signature | + + + + + + | Na | 137 | 135 - 145 | EXTERNAL | | | | | mmol/L | LAB | | + + + + + + | K | 4.1 | 3.5 - 4.9 | EXTERNAL | | | | | mmol/L | LAB | | + + + + + + | Cl | 105 | 99 - 109 mmol/L | EXTERNAL | | | | | | LAB | | + + + + + + | CO2 | 12 (LL)Comment: RESULT | 23 - 32 mmol/L | EXTERNAL | | | | READ BACK BY:LUIS CARLOS Rose 6RP | | LAB | | | | @ [phone] [place] | | | | | |LUIS CARLOS Rose 6RP @ [phone] [place] | | | | | | | | | | + + + + + + | Anion Gap | 24 (H) | 5 - 20 mmol/L | EXTERNAL | | | | | | LAB | | + + + + + + | Glucose, | 68 | 65 - 99 mg/dL | EXTERNAL | | | Fasting | | | LAB | | + + + + + + | BUN | 117 (H) | 8 - 25 mg/dL | EXTERNAL | | | | | | LAB | | + + + + + + | Creatinine | 13.2 (H) | 0.70 - 1.30 | EXTERNAL | | | | | mg/dL | LAB | | + + + + + + | BUN/Creatin | 9 | | EXTERNAL | | | ine Ratio | | | LAB | | + + + + + + | Calcium | 7.5 (L) | 8.5 - 10.5 | EXTERNAL | | | | | mg/dL | LAB | | + + + + + + | Protein, | 7.8 | 6.3 - 8.2 g/dL | EXTERNAL | | | Total | | | LAB | | + + + + + + | Albumin | 3.8 | 3.6 - 5.0 g/dL | EXTERNAL | | | | | | LAB | | + + + + + + | Globulin | 4.0 | 1.3 - 4.9 g/dL | EXTERNAL | | | | | | LAB | | + + + + + + | A/G Ratio | 1.0 | 1.0 - 2.4 | EXTERNAL | | | | | | LAB | | + + + + + + | Bilirubin | 0.6 | 0.1 - 1.5 mg/dL | EXTERNAL | | | Total | | | LAB | | + + + + + + | ALP, | 107 | 35 - 115 U/L | EXTERNAL | | | External | | | LAB | | + + + + + + | AST | 29 | 10 - 45 U/L | EXTERNAL | | | | | | LAB | | + + + + + + | ALT | 59 | 10 - 65 U/L | EXTERNAL [...] | | | | | | at [facility], [address] | | | | | | [place], | | | | | | [place] [address] | | | | + + + + + + + + | Specimen | + + | Blood specimen | | (specimen) | + + + +---------+ + + | Performing | Address | City/State/Zipcode | Phone Number | | Organization | | | | + +---------+ + + | EXTERNAL LAB | | | | + +---------+ + + Lactic Acid (02/16/2017 1:52 AM PDT) + + + + + + | Component | Value | Ref Range | Performed | Pathologist | | | | | At | Signature | + + + + + + | Lactate | 1.6Comment: Testing | 0.4 - 2.0 | EXTERNAL | | | | performed at [facility];[address] | mmol/L | LAB | | | | [address];[place], [place] | | | | | | [address] | | | | + + + + + + + + | Specimen | + + | | + + + +---------+ + + | Performing | Address | City/State/Zipcode | Phone Number | | Organization | | | | + +---------+ + + | EXTERNAL LAB | | | | + +---------+ + + Basic Metabolic Panel (02/15/2017 11:39 PM PDT) + + + + + + | Component | Value | Ref Range | Performed | Pathologist | | | | | At | Signature | + + + + + + | Na | 137 | 135 - 145 | EXTERNAL | | | | | mmol/L | LAB | | + + + + + + | K | 5.0 (H) | 3.5 - 4.9 | EXTERNAL | | | | | mmol/L | LAB | | + + + + + + | Cl | 106 | 99 - 109 mmol/L | EXTERNAL | | | | | | LAB | | + + + + + + | CO2 | 12 (LL)Comment: RESULT | 23 - 32 mmol/L | EXTERNAL | | | | READ BACK BY:MARC Burgess [facility] | | LAB | | | | @ [phone] [place] | | | | | |MARC Burgess [facility] @ [phone] [place] | | | | | | | | | | + + + + + + | Anion Gap | 24 (H) | 5 - 20 mmol/L | EXTERNAL | | | | | | LAB | | + + + + + + | Glucose, | 87 | 65 - 99 mg/dL | EXTERNAL | | | Fasting | | | LAB | | + + + + + + | BUN | 122 (H) | 8 - 25 mg/dL | EXTERNAL | | | | | | LAB | | + + + + + + | Creatinine | 13.0 (H) | 0.70 - 1.30 | EXTERNAL | | | | | mg/dL | LAB | | + + + + + + | BUN/Creatin | 9 | | EXTERNAL | | | ine Ratio | | | LAB | | + + + + + + | Calcium | 7.8 (L) | 8.5 - 10.5 | EXTERNAL [...] [place], | | | | | | [place] [address] | | | | + + + + + + + + | Specimen | + + | Blood specimen | | (specimen) | + + + +---------+ + + | Performing | Address | City/State/Zipcode | Phone Number | | Organization | | | | + +---------+ + + | EXTERNAL LAB | | | | + +---------+ + + MRSA NAAT (02/15/2017 11:33 PM PDT) + + | Specimen | + + | | + + + + + | Narrative | Performed At | + + + | SOURCE NARES(NOSE) MRSA | EXTERNAL LAB | | PCR POSITIVE for MRSA by | | | PCRAbnormal Testing performed at [facility];[address] [place] [address];[place] [address] | | + + + + +---------+ + + | Performing | Address | City/State/Zipcode | Phone Number | | Organization | | | | + +---------+ + + | EXTERNAL LAB | | | | + +---------+ + + POC Glucose (02/15/2017 11:26 PM PDT) + + + + + + | Component | Value | Ref Range | Performed | Pathologist | | | | | At | Signature | + + + + + + | Glucose, | 101 (H)Comment: Testing | 65 - 99 mg/dL | EXTERNAL | | | Fingerstick | performed at [facility];[address] | [address] | | | | [address];[place], [place] | | | | | | [address] | | | | + + + + + + + + | Specimen | + + | | + + + +---------+ + + | Performing | Address | City/State/Zipcode | Phone Number | | Organization | | | | + +---------+ + + | EXTERNAL LAB | | | | + +---------+ + + pH, venous (02/15/2017 10:50 PM PDT) + + + + + + | Component | Value | Ref Range | Performed | Pathologist | | | | | At | Signature | + + + + + + | pH, Bld | 7.208 (L)Comment: | 7.300 - 7.450 | EXTERNAL | | | | Testing performed at | | LAB | | | | [facility];[address] | | | | | | [address];[place] [address] | | | | + + + [...] +---------+ + + XR Chest 1 Vw (02/15/2017 9:33 PM PDT) + + | Specimen | + + | | + + + + + | Impressions | Performed At | + + + | 1. No acute process. | | + + + + + + | Narrative | Performed At | + + + | [facility] XR CHEST 1 VIEW HISTORY: 51 years. Male. Shortness | | | of breath. TECHNIQUE: Single portable anterior view of the chest | | | was obtained. COMPARISON: 10/07/2016 FINDINGS: Vascular | | | stent again visualized right lung apex that. The heart is normal in | | | size. No pulmonary vascular congestion. No pneumothorax. No focal | | | airspace disease or pleural effusion. | | + + + + + | Procedure Note | + + | Néstor, Rad Conversion - 02/04/2019 10:13 PM PDT [facility] CHEST 1 VIEW HISTORY:51 | | years. Male. Shortness of breath. TECHNIQUE:Single portable anterior view of the chest | | was obtained. COMPARISON:10/07/2016 FINDINGS:Vascular stent again visualized right lung | | apex that. The heart is normal in size. No pulmonary vascular congestion. No | | pneumothorax. No focal airspace disease or pleural effusion. IMPRESSION: 1. No acute | | process. | |TECHNIQUE: | |Single portable anterior view of the chest was obtained. | | | |COMPARISON: | |10/07/2016 | | | |FINDINGS: | |Vascular stent again visualized right lung apex that. The heart is normal in size. No pulmo nary vascular congestion. No pneumothorax. No focal airspace disease or pleural effusion. | | | |IMPRESSION: | |1. No acute process. | | | | | + + Culture, Blood, 2nd Specimen (02/15/2017 8:24 PM PDT) + + | Specimen | + + | Blood specimen | | (specimen) | + + + + + | Narrative | Performed At | + + + | Specimen Description BLOOD, LINE DRAW SPECIAL | EXTERNAL LAB | | REQUESTS NECK CULTURE | | | NO GROWTH 6 DAYS | | + + + + +---------+ + + | Performing | Address | City/State/Zipcode | Phone Number | | Organization | | | | + +---------+ + + | EXTERNAL LAB | | | | + +---------+ + + Lactic Acid (02/15/2017 8:24 PM PDT) + + + + + + | Component | Value | Ref Range | Performed | Pathologist | | | | | At | Signature | + + + + + + | Lactate | 0.5Comment: Testing | 0.4 - 2.0 | EXTERNAL | | | | performed at [facility];888 | mmol/L | LAB | | | | [address];[place] | | | | | | [id number] | | | | + + + + + + + + | Specimen | + + | | + + + +---------+ + + | Performing | Address | City/State/Zipcode | Phone Number | | Organization | | | | + +---------+ + + | EXTERNAL LAB | | | | + +---------+ + + Culture, Blood (02/15/2017 8:18 PM PDT) + + | Specimen | + + | Blood specimen | | (specimen) | + + + + + | Narrative | Performed At | + + + | Specimen Description BLOOD, PERIPHERAL DRAW | EXTERNAL LAB | | SPECIAL REQUESTS LEFT AC CULTURE | | | NO GROWTH 6 DAYS | | + + + + +---------+ + + | Performing | Address | City/State/Zipcode | Phone Number | | Organization | | | | + +---------+ + + | EXTERNAL LAB | | | | + +---------+ + + HISTORICAL LAB PANEL RESULT (02/15/2017 8:18 PM PDT) + + + + + -+ | Component | Value | Ref Range | Performed | Pathologist | | | | | At | Signature | + + + + + -+ | WBC | 7.95 | 3.80 - 11.00 | EXTERNAL | | | | | K/uL | LAB | | + + + + + -+ | RED CELL | 4.53 | 4.20 - 5.70 | EXTERNAL | | | COUNT | | M/uL | LAB | | + + + + + -+ | Hgb | 13.3 | 13.2 - 17.0 | EXTERNAL | | | | | g/dL | LAB | | + + + + + -+ | Hematocrit, | 39.6 | 39.0 - 50.0 % | EXTERNAL | | | POC | | | LAB | | + + + + + -+ | MCV | 87.4 | 80.0 - 100.0 fl | EXTERNAL | | | | | | LAB | | + + + + + -+ | MCH | 29.3 | 27.0 - 34.0 pg | EXTERNAL | | | | | | LAB | | + + + + + -+ | MCHC | 33.5 | 32.0 - 35.5 | EXTERNAL | | | | | g/dL | LAB | | + + + + + -+ | RDW-CV | 64.3 (H) | 37 - 53 fl | EXTERNAL | | | | | | LAB | | + + + + + -+ | Platelet | 231 | 150 - 400 K/uL | EXTERNAL | | | Count | | | LAB | | | Plasma | | | | | + + + + + -+ | MPV | 6.6 | fl | EXTERNAL | | | | | | LAB | | + + + + + -+ | Differentia | AUTOMATED | | EXTERNAL | | | l Type | | | LAB | | + + + + + -+ | % Segmented | 65.02 | % | EXTERNAL | | | | | | LAB | | | Neutrophils | | | | | + + + + + -+ | % | 9.80 | % | EXTERNAL | | | Lymphocytes | | | LAB | | + + + + + -+ | % Monocytes | 5.53 | % | EXTERNAL | | | | | | LAB | | + + + + + -+ | % | 18.93 | % | EXTERNAL | | | Eosinophils | | | LAB | | + + + + + -+ | % Basophils | 0.72 | % | EXTERNAL | | | | | | LAB | | + + + + + -+ | Absolute | 5.17 | 1.90 - 7.40 | EXTERNAL | | | Segmented | | K/uL | LAB | | | Neutrophils | | | | | + + + + + -+ | Absolute | 0.78 (L) | 1.00 - 3.90 | EXTERNAL | | | Lymphocytes | | K/uL | LAB | | + + + + + -+ | Absolute | 0.44 | 0.00 - 0.80 | EXTERNAL | | | Monocytes | | K/uL | LAB | | + + + + + -+ | Absolute | 1.50 (H) | 0.00 - 0.50 | EXTERNAL | | | Eosinophils | | K/uL | LAB | | + + + + + -+ | Absolute | 0.06 | 0.00 - 0.10 | EXTERNAL | | | Basophils | | K/uL | LAB | | + + + + + -+ | RBC | 1+ | | EXTERNAL | | | Morphology | Comment: | | LAB | | | | ANISO | | | | | | NORMAL PLT MORPH | | | | | | | | | | + + + + + -+ | Platelet | ADEQUATE | | EXTERNAL | | | Estimate | | | LAB | | + + + + + -+ | Na | 134 (L) | 135 - 145 | EXTERNAL | | | | | mmol/L | LAB | | + + + + + -+ | K | 5.9 (H) | 3.5 - 4.9 | EXTERNAL | | | | | mmol/L | LAB | | + + + + + -+ | Cl | 106 | 99 - 109 mmol/L | EXTERNAL | | | | | | LAB | | + + + + + -+ | CO2 | 13 (LL)Comment: CALLED | 23 - 32 mmol/L | EXTERNAL | | | | TO DR CHOWDHURY AT 2105 | | LAB | | | | BY CD, READ BACK | | | | + + + + + -+ | Anion Gap | 20 | 5 - 20 mmol/L | EXTERNAL | | | | | | LAB | | + + + + + -+ | Glucose, | 82 | 65 - 99 mg/dL | EXTERNAL | | | Fasting | | | LAB | | + + + + + -+ | BUN | 118 (H) | 8 - 25 mg/dL | EXTERNAL | | | | | | LAB | | + + + + + -+ | Creatinine | 13 (H) | 0.70 - 1.30 | EXTERNAL | | | | | mg/dL | LAB | | + + + + + -+ | BUN/Creatin | 9 | | EXTERNAL | | | ine Ratio | | | LAB | | + + + + + -+ | Calcium | 7.7 (L) | 8.5 - 10.5 | EXTERNAL | | | | | mg/dL | LAB | | + + + + + -+ | Protein, | 8.6 (H) | 6.3 - 8.2 g/dL | EXTERNAL | | | Total | | | LAB | | + + + + + -+ | Albumin | 3.9 | 3.6 - 5.0 g/dL | EXTERNAL | | | | | | LAB | | + + + + + -+ | Globulin | 4.7 | 1.3 - 4.9 g/dL | EXTERNAL [...] + + + -+ | ALP, | 124 (H) | 35 - 115 U/L | EXTERNAL | | | External | | | LAB | | + + + + + -+ | AST | 35 | 10 - 45 U/L | EXTERNAL | | | | | | LAB | | + + + + + -+ | ALT | 70 (H) | 10 - 65 U/L | EXTERNAL [...] + + -+ | CK, Total | 240 | 55 - 400 U/L | EXTERNAL [...] + + + -+ | aPTT, | 29 | 23 - 32 seconds | EXTERNAL | | | Patient | | | LAB | | + + + + + -+ | CK-MB | 13.3 (H) | 0.5 - 3.6 ng/mL | EXTERNAL | | | | | | LAB | | + + + + + -+ | CK-MB Index | 5.5Comment: CK INDEX | | EXTERNAL | | [...] +---------+ + + B Type Natriuretic Peptide (02/15/2017 8:18 PM PDT) + + + + + + | Component | Value | Ref Range | Performed | Pathologist | | | | | At | Signature | + + + + + + | BNP | 253 (H)Comment: Testing | 0 - 100 pg/mL | EXTERNAL | | | | performed at [facility];[address] | | LAB | | | | [address];[place], [place] | | | | | | [address] | | | | + + + + + + + + | Specimen | + + | Blood specimen | | (specimen) | + + + +---------+ + + | Performing | Address | City/State/Zipcode | Phone Number | | Organization | | | | + +---------+ + + | EXTERNAL LAB | | | | + +---------+ + + Ammonia (02/15/2017 8:18 PM PDT) + + + + + + | Component | Value | Ref Range | Performed | Pathologist | | | | | At | Signature | + + + + + + | Ammonia | 30Comment: Testing | umol/L | EXTERNAL | | | | performed at [facility];[address] | | LAB | | | | [address];[place] | | | | | | [id number] | | | | + + + [...] stage renal disease | + + | Corneal ulcer, right Corneal ulcer, unspecified | + + | Acidemia Acidosis | + + | Hyperkalemia Hyperpotassemia | + + | Rash Rash and other nonspecific skin eruption | + + documented in this encounter Additional Health Concerns + + + + | Infection | Noted Time | Resolved Time | + + + + | Methicillin-resistant Staphylococcus aureus | 02/18/2017 12:00 AM | | | | PDT | | + + + + documented as of this encounter
--- OUTSIDE RECORDS SUMMARY | ~2019-05-20 | XMS | Encounter Summary ---
Demographics + + + | Address | [address] | | | [place] [address] | + + + | Home Phone | | + + + | Preferred Language | Unknown | + + + | Marital Status | Unknown | + + + | Congregational Affiliation | [id number] | + + + [...] Team Providers + +------+ + | Care Core Stacker Name | Role | Phone | + +------+ + PCP | Unavailable | + +------+ + Encounter Details +--------+ + + + + | Date | Type | Department | Care Team | Description | +--------+ + + + + | 11/09/ | Hospital | [facility] | PaulaGaldino ortiz | Hyperkalemia; Anemia | | 2013 - | Encounter | [facility] | MD Azeem [address] | of chronic kidney | | | | CARE [address]LO[address] | [address] | failure; ESRD (end | | 11/10/ | | [address] | [place] [address] | stage renal disease) | | 2013 | | [place], [place] | [phone] | on dialysis ([facility]); | | | | [address] | | HTN (hypertension); | | | | [phone] | | Hypoalbuminemia; | | | | | | Hypothyroidism; PUD | | | | | | (peptic ulcer | | | | | | disease); Secondary | | | | | | hyperparathyroidism | | | | | | (of renal origin) | | | | | | ([facility]); Vitamin D | | | | | [...] Summaries by Lei Padgett MD at 11/10/13 0339 Author: Lei Padgett MD Service: (none) Author Type: Physician Filed: 11/11/13 0936 Date of Service: 11/10/13 7421 Status: Signed Bridge Operator: Lei Padgett MD (Physician) Related Notes: Original Note by Lei Padgett MD (Physician) filed at 11/11/13 0016 [facility] Service: Hospitalist Physician Discharge Summary Patient ID: Enrique Potter 1965 48 y.o. Admit date: 11/09/2013 Discharge date: 11/10/2013 Admitting Physician: Galdino Oliveros MD Discharge Physician: Lei Padgett MD Consultants: Treatment Team: Consulting Physician: Nakul Soria MD Admitting Provider: Galdino Oliveros MD Primary Discharge Diagnoses: Principal Problem: *Hyperkalemia Active Problems: Vitamin D deficiency Hypothyroidism HTN (hypertension) ESRD (end stage renal disease) on dialysis Anemia of chronic kidney failure Steroid-induced hyperglycemia HPI and Hospital Course: Please see Dr. Oliveros's H P for presentation details. In essence, Mr. Potter presented to [facility] on November 09, 2013, after it was [...] further plans of how to proceed with terminal worker AV fistula access recreation. The patient was transported home by family members with assistance from our administrator social welfare. Past Medical History: Past Medical History Diagnosis [...] EGD; Surgeon: John Singleton MD; Location: [facility] ENDOSCOPY; Se rvice: Gastroenterology; Laterality: N/A; Av fistula placement 05/06/2012 Procedure: AV FISTULA; Surgeon: Oskar Meyer MD; Location: [facility] MAIN OR; Service: Vascul ar; Laterality: Left; Left arm possible right Unlisted procedure arthroscopy shoulder rt , ligaments Knee arthroscopy 07/07/2012 Procedure: KNEE - ARTHROSCOPY; Surgeon: Favio Raza MD; Location: [facility] MAIN OR; ervice: Orthopedics; Laterality: Right; After 1530 Catheter removal 07/07/2012 Procedure: DIALYSIS CATHETER REMOVAL; Surgeon: Oskar Meyer MD; Location: [facility] BEDSIDE SD OCEDURE; Service: General; Laterality: Right; perm cath Dialysis fistula creation 07/07/2012 Procedure: DIALYSIS CATHETER INSERTION; Surgeon: Oskar Meyer MD; Location: [facility] BEDSIDE PROCEDURE; Service: General; Laterality: Left; temporary dialysis catheter Av fistula repair 07/11/2012 Procedure: AV FISTULA GRAFT REPAIR/REVISION; Surgeon: Oskar Meyer MD; Location: [facility] OR; Service: Vascular; Laterality: Left; Superficialization of brachiobasilic fistula and right IJ perm cath insertion Dialysis fistula creation 07/11/2012 Procedure: DIALYSIS CATHETER INSERTION; Surgeon: Oskar Meyer MD; Location: [facility] MAIN OR; Service: Vascular; Laterality: Left; removed dialysis catheter from left neck and placed new on in left chest, attempted in right neck but unable to place Discharged Condition: Stable for discharge as stated above. Significant Diagnostic Studies: Ir Dialysis Tunneled Cath Insert 11/09/2013 ENRIQUE POTTER IR DIALYSIS TUNNELED CATHETER INSERTION 11/09/2013 6:41 PM HISTORY: 48 years. Male. Clotted left arm AV graft 585.6. PROCEDURE: 1. Sonography of the lower ne ck veins. 2. Sonographic guidance for access into the right external jugular vein. 3. Plac ement of 19 cm, 14.5-Tajik dual-lumen tunneled palindrome hemodialysis catheter in the [...] of adequa te conscious sedation and independent alf supervision of the conscious sedation was performed [...] 3. Upper chest radiograph shows dual -lumen, 14.5-Tajik, 19-cm, tunneled dialysis catheter with its tip [...] and intervention, as per protocol at this [facility]. The patient was placed supine on the x-ray table. Sonography of the lower neck vei ns revealed widely patent and compressible right jugular vein. Supraclavicular and infracla vicular regions are prepped in the usual sterile fashion. Skin and subcutaneous tissues the n infiltrated with 1% lidocaine. Right external jugular vein was accessed using a micropunc ture needle and exchanged for a 4-Tajik micropuncture sheath over a 0.018 wire. Skin in th e infraclavicular region was infiltrated with 1% lidocaine and a 5-mm skin incision was made . A 14.5-Tajik, dual-lumen, 19-cm tunneled hemodialysis catheter was placed a subcutaneous tunnel using a metallic tunneler. The 4-Tajik sheath was exchanged for a 0.035, 3-mm J-wi re with its tip in the right atrium under fluoroscopy guidance. The skin and subcutaneous t ract was dilated using at 12 and 14-Tajik facial dilators. A 15-Tajik peel-away sheath wa s placed over the [...] portion of the right atrium without incidence. 01657, 56048, [address] Discharge Vitals: Filed Vitals: 11/10/13 0016 11/10/13 [...] Non focal. Motor grossly intact. LABS: Lab 11/10/13 0349 11/09/132138 WBC 11.9* 13.4* HGB 11.5* 12.2* HCT 34.1* 36.4* PLT 174 202 NEUTOPHILPCT 76.3 85.5 MONOPCT 6.7 4.5 Lab 11/10/13 0349 11/09/13 2139 11/09/13 1830 NA 133* 133* -- K 4.6 5.7* 5.6* CL 101 98* -- CO2 19* 22* -- BUN 78* 74* -- CREATININE 9.22* 9.66* -- CALCIUM -- -- -- PROT 6.0* 6.9 -- BILITOT 0.6 0.6 -- ALKPHOS -- -- -- ALT 22 24 -- AST 18 18 -- GLUCOSE -- -- -- Phosphorus: Lab 11/10/139 PHOS 4.2 Lab 11/10/13 034 MG 2.3 Disposition: Home under family care Follow up: [facility] [address] [place] [address] Schedule an appointment as soon as possible for a visit in 1 week Juan Timmons MD [address] [facility] [address] Schedule an appointment as soon as possible [...] nebulizer solution Commonly known as: PROVENTIL ergocalciferol 59254 UNITS capsule Commonly known as: DRISDOL Lei [...] from the original. Nurse Progress Note by Obdulio Quiroz RN at 11/10/13 1659 Author: Obdulio Quiroz RN Service: (none) Author Type: Registered Nurse Filed: 11/10/13 1700 Date of Service: 11/10/13 165 Status: Signed Bridge Operator: Obdulio Quiroz RN (Registered Nurse) DC instructions given to patient, no questions at this time. Ready for discharge onver quique Transaction, Provider Unknown - 11/10/2013 4:06 PM PDT Nurse Progress Note by Obdulio Quiroz RN at 11/10/13 1606 Author: Obdulio Quiroz RN Service: (none) Author Type: Registered Nurse Filed: 11/10/13 1606 Date of Service: 11/10/13 1606 Status: Signed Bridge Operator: Odbulio Quiroz RN (Registered Nurse) Per verbal order from Dr. Padgett, [place] dc'd. Patient will discharge home, awaiting DC orders. onver quique Transaction, Provider Unknown - 11/10/2013 2:55 PM PDT Progress Notes by Khadra Venegas RD, CDE at 11/10/13 8967 Author: Khadra Venegas RD, CDE Service: (none) Author Type: Closing Specialist Filed: 11/10/13 7964 Date of Service: 11/10/13 6555 Status: Signed Bridge Operator: Khadra Venegas RD, CDE (Closing Specialist) Has had several elevated blood sugars here. Recommend: Check ac/hs and start on low dose correctional scale insulin. Khadra Venegas RD, MPH, CDE, Closing Specialist 11/10/2013 2:59 PM onver quique Transaction, Provider Unknown - 11/10/2013 2:12 PM PDT Case Management by Macho Abraham MS, ADVANCED MANUFACTURING CONSULTANT at 11/10/13 1412 Author: Macho Abraham MS, ADVANCED MANUFACTURING CONSULTANT Service: (none) Author Type: General Accountant Filed: 11/10/13 1413 Date of Service: 11/10/131411 Status: Signed Bridge Operator: Macho Abraham MS, ADVANCED MANUFACTURING CONSULTANT (General Accountant) 11/10/13 1401 Discharge Planning Evaluation Admitting Diagnosis Hyperkalemia Readmission [...] with no needs. Pt is established to [facility] [place] [facility] [place] and dialysis in [place] Power of [place] Drill Operator No Anticipated Discharge Plan Post Acute Care Needs None at this time Plan communicated to patient/family Yes Resources Financial concerns No Transportation issues No Patient/Family concerns Yes;Comment (see chart note re: transport) Anticipated Disposition Facility Type Other (Comment) (Home) Discharge planning: CM received referral that pt's son is requesting a gas voucher for ret urn to home in [place]. He states they are on fumes and have access to no money . Pt's wif e and son report that they drove to [facility] rather urgently and brought nothing with them. T he family has also asked for meals while pt has been here. Son states that they have friends in [place] but they are not answering their phone and they have no money. CM reviewed chart a nd pt's was given a gas voucher on October 28 for $30. Pt does have access to [facility] transport services and CM confirmed pt's eligibility. Pt can have [place] him from [place] to [facility] and vice versa. Cm also confirmed that pt has eligibility for mile age reimbursement , so in the future the patient can have family transport if he wants and t barbiey can be reimbursed for gas based on mileage. CM provided pt and family with the phone miki dao. Educated pt that [facility] would not be able to continue to [...] pt has option for transport through his [place] Medicaid and he can have transport should his extended family not be able to afford v isiting . Patient's PCP is: [facility] Patient's insurance:Medicare, Medicaid, [employer] [facility] Coverage concerns: none Medication coverage/concerns: none Community resources utilized / needed: Re-educated re: pt's existing resources and transpor tation options pt has through [place] Medicaid Assistance in transportation: Pt and son prefer driving pt Identification of any specific education / training: re-enforce education about accessing r esources that are available to pt vs. [employer] supplementing funds to pt/family. Barriers to Discharge / Alternative housing needed: none reported. Anticipated DCP: Return to home in [place] Macho Abraham onver quique Castillo, Provider Unknown - 11/10/2013 1:30 AM PDT Progress Notes by Carmina Lara RPH at 11/10/13129 Author: Carmina Lara RPH Service: (none) Author Type: Pharmacist Filed: 11/10/13129 Date of Service: 11/10/13129 Status: Signed Bridge Operator: Carmina Lara RPH (Pharmacist) Clinical Pharmacy Note: Renal Monitoring Enrique Potter 48 y.o. male Height: 170.2 cm Weight: 81.7 kg Patient is on hemodialysis. Pharmacy dosing for renal function per Dr. Oliveros. Currently, there are no medications needing to be adjusted. Pharmacy will continue to monit or for changes in medication orders and adjust accordingly per P & T committee. Carmina Lara PharmD 11/10/2013 1:29 AM docume nted in this encounter Plan of [...] | EXTERNAL LAB: REBECA | Routin | 11/09/2013 | | Results [...] EXTERNAL | | | | performed at [facility], [address] | | LAB | | | | [address], | | | | | | [place] [address] | | | | + + + + + + | RED CELL | 3.46 (L)Comment: Testing | 4.20 - 5.70 | EXTERNAL | | | COUNT | performed at [facility], [address] | M/uL | LAB | | | | [address], | | | | | | [place] [address] | | | | + + + + + + | Hgb | 11.5 (L)Comment: Testing | 13.2 - 17.0 | EXTERNAL | | | | performed at [facility], [address] | g/dL | LAB | | | | [address], | | | | | | [place] [address] | | | | + + + + + + | Hematocrit, | 34.1 (L)Comment: Testing | 39.0 - 50.0 % | EXTERNAL | | | POC | performed at [facility], [address] | | LAB | | | | [address], | | | | | | [place] [address] | | | | + + + + + + | MCV | 98.6Comment: Testing | 80.0 - 100.0 fl | EXTERNAL | | | | performed at [facility], [address] | | LAB | | | | [address], | | | | | | [place] [address] | | | | + + + + + + | MCH | 33.2Comment: Testing | 27.0 - 34.0 pg | EXTERNAL | | | | performed at [facility], [address] | | LAB | | | | [address], | | | | | | [place] [address] | | | | + + + + + + | MCHC | 33.7Comment: Testing | 32.0 - 35.5 | EXTERNAL | | | | performed at [facility], [address] | g/dL | LAB | | | | [address], | | | | | | [place] [address] | | | | + + + + + + | RDW-CV | 51.2Comment: Testing | 37 - 53 fl | EXTERNAL | | | | performed at [facility], [address] | | LAB | | | | [address], | | | | | | [place] [address] | | | | + + + + + + | Platelet | 174Comment: Testing | 150 - 400 K/uL | EXTERNAL | | | Count | performed at [facility], [address] | | LAB | | | Plasma | [address], | | | | | | [place] [address] | | | | + + + + + + | MPV | 7.4Comment: Testing | fl | EXTERNAL | | | | performed at [facility], [address] | | LAB | | | | [address], | | | | | | [place] [address] | | | | + + + + + + | Differentia | AUTOMATEDComment: | | EXTERNAL | | | l Type | Testing performed at | | LAB | | | | [facility], [address] | | | | | | [place] | | | | | | [address] | | | | + + + + + + | % Segmented | 76.3Comment: Testing | % | EXTERNAL | | | | performed at [facility], [address] | | LAB | | | Neutrophils | [address], | | | | | | [place] [address] | | | | + + + + + + | % | 15.1Comment: Testing | % | EXTERNAL | | | Lymphocytes | performed at [facility], [address] | | LAB | | | | [address], | | | | | | [place] [address] | | | | + + + + + + | % Monocytes | 6.7Comment: Testing | % | EXTERNAL | | | | performed at [facility], [address] | | LAB | | | | [address], | | | | | | [place] [address] | | | | + + + + + + | % | 1.5Comment: Testing | % | EXTERNAL | | | Eosinophils | performed at [facility], [address] | | LAB | | | | [address], | | | | | | [place] [address] | | | | + + + + + + | % Basophils | 0.4Comment: Testing | % | EXTERNAL | | | | performed at [facility], [address] | | LAB | | | | [address], | | | | | | [place] [address] | | | | + + + + + + | Absolute | 9.1 (H)Comment: Testing | 1.9 - 7.4 K/uL | EXTERNAL | | | Segmented | performed at [facility], [address] | | LAB | | | Neutrophils | [address], | | | | | | [place] [address] | | | | + + + + + + | Absolute | 1.8Comment: Testing | 1.0 - 3.9 K/uL | EXTERNAL | | | Lymphocytes | performed at [facility], [address] | | LAB | | | | [address], | | | | | | [place] [address] | | | | + + + + + + | Absolute | 0.8Comment: Testing | 0 - 0.8 K/uL | EXTERNAL | | | Monocytes | performed at [facility], [address] | | LAB | | | | [address], | | | | | | [place] [address] | | | | + + + + + + | Absolute | 0.2Comment: Testing | 0 - 0.5 K/uL | EXTERNAL | | | Eosinophils | performed at [facility], [address] | | LAB | | | | [address], | | | | | | [place] [address] | | | | + + + + + + | Absolute | 0.0Comment: Testing | 0 - 0.1 K/uL | EXTERNAL | | | Basophils | performed at [facility], [address] | | LAB | | | | [address], | | | | | | [place] [address] | | | | + + + [...] EXTERNAL | | | | performed at [facility], [address] | | LAB | | | | [address], | | | | | | [place] [address] | | | | + + + [...] EXTERNAL | | | | performed at [facility], [address] | | LAB | | | | [address], | | | | | | [place] [address] | | | | + + + [...] + + | Hemoglobin | 5.8Comment: The [place] | 4.0 - 6.0 % | EXTERNAL [...] | | | | | performed at [facility], [address] | | | | | | [address] [facility], | | | | | | [place] [address] | | | | + + + [...] | | | | | performed at [facility], [address] | | | | | | [facility], | | | | | | [place] [address] | | | | + + + [...] | | | | | [place] [address] | | | | + + + + + + | K | 4.6Comment: Testing | 3.5 - 4.9 | EXTERNAL | | | | performed at [facility], [address] | mmol/L | LAB | | | | [address], | | | | | | [place] [address] | | | | + + + + + + | Cl | 101Comment: Testing | 99 - 109 mmol/L | EXTERNAL | | | | performed at [facility], [address] | | LAB | | | | [address], | | | | | | [place] [address] | | | | + + + + + + | CO2 | 19 (L)Comment: Testing | 23 - 32 mmol/L | EXTERNAL | | | | performed at [facility], [address] | | LAB | | | | [address], | | | | | | [place] [address] | | | | + + + + + + | Anion Gap | 18Comment: Testing | 5 - 20 mmol/L | EXTERNAL | | | | performed at [facility], [address] | | LAB | | | | [address], | | | | | | [place], [place] [address] | | | | + + + + + + | Glucose, | 205 (H)Comment: Testing | 65 - 99 mg/dL | EXTERNAL | | | Fasting | performed at [facility], [address] | | LAB | | | | [address], | | | | | | [place], [place] [address] | | | | + + + + + + | BUN | 78 (H)Comment: Testing | 8 - 25 mg/dL | EXTERNAL | | | | performed at [facility], [address] | | LAB | | | | [address], | | | | | | [place] [address] | | | | + + + + + + | Creatinine | 9.22 (H)Comment: Testing | 0.70 - 1.30 | EXTERNAL | | | | performed at [facility], [address] | mg/dL | LAB | | | | [address], | | | | | | [place] [address] | | | | + + + + + + | BUN/Creatin | 8Comment: Testing | | EXTERNAL | | | ine Ratio | performed at [facility], [address] | | LAB | | | | [address], | | | | | | [place] [address] | | | | + + + + + + | Calcium | 8.7Comment: Testing | 8.5 - 10.2 | EXTERNAL | | | | performed at [facility], [address] | mg/dL | LAB | | | | [address], | | | | | | [place] [address] | | | | + + + + + + | Protein, | 6.0 (L)Comment: Testing | 6.3 - 8.2 g/dL | EXTERNAL | | | Total | performed at [facility], [address] | | LAB | | | | [address], | | | | | | [place] [address] | | | | + + + + + + | Albumin | 3.5 (L)Comment: Testing | 3.6 - 5.0 g/dL | EXTERNAL | | | | performed at [facility], [address] | | LAB | | | | [address], | | | | | | [place] [address] | | | | + + + + + + | Globulin | 2.5Comment: Testing | 1.3 - 4.9 g/dL | EXTERNAL | | | | performed at [facility], [address] | | LAB | | | | [address], | | | | | | [place] [address] | | | | + + + + + + | A/G Ratio | 1.4Comment: Testing | 1.0 - 2.4 | EXTERNAL | | | | performed at [facility], [address] | | LAB | | | | [address], | | | | | | [place] [address] | | | | + + + + + + | Bilirubin | 0.6Comment: Testing | 0.1 - 1.5 mg/dL | EXTERNAL | | | Total | performed at [facility], [address] | | LAB | | | | [address], | | | | | | [place] [address] | | | | + + + + + + | ALP, | 122 (H)Comment: Testing | 35 - 115 U/L | EXTERNAL | | | External | performed at [facility], [address] | | LAB | | | | [address], | | | | | | [place] [address] | | | | + + + + + + | AST | 18Comment: Testing | 10 - 45 U/L | EXTERNAL | | | | performed at [facility], [address] | | LAB | | | | [address], | | | | | | [place] [address] | | | | + + + + + + | ALT | 22Comment: Testing | 10 - 65 U/L | EXTERNAL | | | | performed at [facility], [address] | | LAB | | | | [address] [facility], | | | | | | [place] [address] | | | | + + + [...] | | | | | | at [facility], [address] | | | | | | [address] [facility], | | | | | | [place] [address] | | | | + + + [...] | | performed at [facility];[address] | | LAB | | | | [address];[place] | | | | | | [address] | | | | + + + + + + | RED CELL | 3.73 (L)Comment: Testing | 4.20 - 5.70 | EXTERNAL | | | COUNT | performed at [facility];[address] | M/uL | LAB | | | | [address];[place] | | | | | | [address] | | | | + + + + + + | Hgb | 12.2 (L)Comment: Testing | 13.2 - 17.0 | EXTERNAL | | | | performed at [facility];[address] | g/dL | LAB | | | | [address];[place] | | | | | | [address] | | | | + + + + + + | Hematocrit, | 36.4 (L)Comment: Testing | 39.0 - 50.0 % | EXTERNAL | | | POC | performed at [facility];[address] | | LAB | | | | [address];[place] | | | | | | [address] | | | | + + + + + + | MCV | 97.4Comment: Testing | 80.0 - 100.0 fl | EXTERNAL | | | | performed at [facility];[address] | | LAB | | | | [address];[place] | | | | | | [address] | | | | + + + + + + | MCH | 32.7Comment: Testing | 27.0 - 34.0 pg | EXTERNAL | | | | performed at [facility];[address] | | LAB | | | | [address];[place] | | | | | | [address] | | | | + + + + + + | MCHC | 33.6Comment: Testing | 32.0 - 35.5 | EXTERNAL | | | | performed at [facility];888 | g/dL | LAB | | | | [address];[place] | | | | | | [address] | | | | + + + + + + | RDW-CV | 50.8Comment: Testing | 37 - 53 fl | EXTERNAL | | | | performed at [facility];[address] | | LAB | | | | [address];[place] | | | | | | [address] | | | | + + + + + + | Platelet | 202Comment: Testing | 150 - 400 K/uL | EXTERNAL | | | Count | performed at [facility];[address] | | LAB | | | Plasma | [address];[place] | | | | | | [address] | | | | + + + + + + | MPV | 7.3Comment: Testing | fl | EXTERNAL | | | | performed at [facility];[address] | | LAB | | | | [address];[place] | | | | | | [address] | | | | + + + + + + | Differentia | AUTOMATEDComment: | | EXTERNAL | | | l Type | Testing performed at | | LAB | | | | [facility];[address];[place] [address] | | | | + + + + + + | % Segmented | 85.5Comment: Testing | % | EXTERNAL | | | | performed at [facility];[address] | | LAB | | | Neutrophils | [address];[place] | | | | | | [address] | | | | + + + + + + | % | 9.5Comment: Testing | % | EXTERNAL | | | Lymphocytes | performed at [facility];[address] | | LAB | | | | [address];[place] | | | | | | [address] | | | | + + + + + + | % Monocytes | 4.5Comment: Testing | % | EXTERNAL | | | | performed at [facility];[address] | | LAB | | | | [address];[place] | | | | | | [address] | | | | + + + + + + | % | 0.3Comment: Testing | % | EXTERNAL | | | Eosinophils | performed at [facility];[address] | | LAB | | | | [address];[place] | | | | | | [address] | | | | + + + + + + | % Basophils | 0.2Comment: Testing | % | EXTERNAL | | | | performed at [facility];[address] | | LAB | | | | [address];[place] | | | | | | [address] | | | | + + + + + + | Absolute | 11.5 (H)Comment: Testing | 1.9 - 7.4 K/uL | EXTERNAL | | | Segmented | performed at [facility];[address] | | LAB | | | Neutrophils | [address];[place] | | | | | | [address] | | | | + + + + + + | Absolute | 1.3Comment: Testing | 1.0 - 3.9 K/uL | EXTERNAL | | | Lymphocytes | performed at [facility];[address] | | LAB | | | | [address];[place] | | | | | | [address] | | | | + + + + + + | Absolute | 0.6Comment: Testing | 0 - 0.8 K/uL | EXTERNAL | | | Monocytes | performed at [facility];[address] | | LAB | | | | [address];[place] | | | | | | [address] | | | | + + + + + + | Absolute | 0.0Comment: Testing | 0 - 0.5 K/uL | EXTERNAL | | | Eosinophils | performed at [facility];[address] | | LAB | | | | [address];[place] | | | | | | [address] | | | | + + + + + + | Absolute | 0.0Comment: Testing | 0 - 0.1 K/uL | EXTERNAL | | | Basophils | performed at [facility];[address] | | LAB | | | | [address];[place] | | | | | | [address] | | | | + + + + + + | Platelet | ADEQUATEComment: Testing | | EXTERNAL | | | Estimate | performed at [facility];[address] | | LAB | | | | [address];[place] | | | | | | [address] | | | | + + + + + + | Differentia | SLIDE SCANNED, AGREES | | EXTERNAL | | | l Comments | WITH AUTOMATED | | LAB | | | | RESULTS.Comment: Testing | | | | | | performed at [facility];[address] | | | | | | [address];[place] | | | | | | [address] | | | | + + + + + + | RBC | RBC AND PLT MORPHOLOGY | | EXTERNAL | | | Morphology | APPEAR NORMALComment: | | LAB | | | | Testing performed at | | | | | | [facility];[address];[place] [address] | | | | + + + [...] | | performed at [facility];888 | mmol/L | LAB | | | | [address];[place] | | | | | | [address] | | | | + + + + + + | K | 5.7 (H)Comment: Testing | 3.5 - 4.9 | EXTERNAL | | | | performed at [facility];888 | mmol/L | LAB | | | | [address];[place] | | | | | | [address] | | | | + + + + + + | Cl | 98 (L)Comment: Testing | 99 - 109 mmol/L | EXTERNAL | | | | performed at [facility];[address] | | LAB | | | | [address];[place] | | | | | | [address] | | | | + + + + + + | CO2 | 22 (L)Comment: Testing | 23 - 32 mmol/L | EXTERNAL | | | | performed at [facility];[address] | | LAB | | | | [address];[place] | | | | | | [address] | | | | + + + + + + | Anion Gap | 19Comment: Testing | 5 - 20 mmol/L | EXTERNAL | | | | performed at [facility];[address] | | LAB | | | | [address];[place] | | | | | | [address] | | | | + + + + + + | Glucose, | 201 (H)Comment: Testing | 65 - 99 mg/dL | EXTERNAL | | | Fasting | performed at [facility];[address] | | LAB | | | | [address];[place] | | | | | | [address] | | | | + + + + + + | BUN | 74 (H)Comment: Testing | 8 - 25 mg/dL | EXTERNAL | | | | performed at [facility];[address] | | LAB | | | | [address];[place] | | | | | | [address] | | | | + + + + + + | Creatinine | 9.66 (H)Comment: Testing | 0.70 - 1.30 | EXTERNAL | | | | performed at [facility];888 | mg/dL | LAB | | | | [address];[place] | | | | | | [address] | | | | + + + + + + | BUN/Creatin | 8Comment: Testing | | EXTERNAL | | | ine Ratio | performed at [facility];[address] | | LAB | | | | [address];[place] | | | | | | [address] | | | | + + + + + + | Calcium | 8.1 (L)Comment: Testing | 8.5 - 10.2 | EXTERNAL | | | | performed at [facility];888 | mg/dL | LAB | | | | [address];[place] | | | | | | [address] | | | | + + + + + + | Protein, | 6.9Comment: Testing | 6.3 - 8.2 g/dL | EXTERNAL | | | Total | performed at [facility];[address] | | LAB | | | | [address];[place] | | | | | | [address] | | | | + + + + + + | Albumin | 3.4 (L)Comment: Testing | 3.6 - 5.0 g/dL | EXTERNAL | | | | performed at [facility];[address] | | LAB | | | | [address];[place] | | | | | | [address] | | | | + + + + + + | Globulin | 3.5Comment: Testing | 1.3 - 4.9 g/dL | EXTERNAL | | | | performed at [facility];[address] | | LAB | | | | [address];[place] | | | | | | [address] | | | | + + + + + + | A/G Ratio | 1.0Comment: Testing | 1.0 - 2.4 | EXTERNAL | | | | performed at [facility];[address] | | LAB | | | | [address];[place] | | | | | | [address] | | | | + + + + + + | Bilirubin | 0.6Comment: Testing | 0.1 - 1.5 mg/dL | EXTERNAL | | | Total | performed at [facility];[address] | | LAB | | | | [address];[place] | | | | | | [address] | | | | + + + + + + | ALP, | 172 (H)Comment: Testing | 35 - 115 U/L | EXTERNAL | | | External | performed at [facility];[address] | | LAB | | | | [address];[place] | | | | | | [address] | | | | + + + + + + | AST | 18Comment: Testing | 10 - 45 U/L | EXTERNAL | | | | performed at [facility];[address] | | LAB | | | | [address];[place] | | | | | | [address] | | | | + + + + + + | ALT | 24Comment: Testing | 10 - 65 U/L | EXTERNAL | | | | performed at [facility];[address] | | LAB | | | | [facility], [place] | | | | | | [address] | | | | + + + [...] | | | at [facility];[address] [place] [address] | | | | | | vd;[place] [address] | | | | + + + [...] deficiency | + + documented in this encounter"
--- OUTSIDE RECORDS SUMMARY | ~2019-05-20 | XMS | Encounter Summary ---
Demographics + + + | Address | [address] | | | [place] [address] | + + + | Home Phone [...] + | Author | [facility] | | | and [place] | + + + | Organization | [facility] | | | and [...] Team Providers + +------+ + | Care Patient Access Representative Name | Role | Phone | + +------+ + | Andry Deng DO | PCP | | + +------+ + Encounter Details +--------+ + + + + | Date | Type | Department | Care Team | Description | +--------+ + + + + | 08/27/ | Orders Only | [facility] | Franklyn Malin MD | | | 2017 | | VASCULAR SURGERY | [address] | | | | | ULTRASOUND [address] | [place], [place] | | | | | [address] | [address] | | | | | [place], [place] | | | | | | [address] | | | | | | [phone] | | | +--------+ + + + [...]
--- OUTSIDE RECORDS SUMMARY | ~2019-05-20 | XMS | Encounter Summary ---
Demographics + + + | Address | [address] | | | [place] [address] | + + + | Home Phone [...] Team Providers + +------+ + | Care Date Puller Name | Role | Phone | + +------+ + PCP | Unavailable | + +------+ + Encounter Details +--------+ + + + + | Date | Type | Department | Care Team | Description | +--------+ + + + + | 04/30/ | Hospital | [facility] | Al Coon DO | GI bleeding; | | 2011 - | Encounter | [facility] | [address] | Diabetes mellitus | | | | CARE FLOOR [address] | [address] | with ESRD (end-stage | | 05/02/ | | [address] | [place] [address] | renal disease) | | 2011 | | [place], [place] | [phone] | (HCC); GI bleed; | | | | [address] | | Hypoalbuminemia; | | | | [phone] | | Hypokalemia; | | | | [...] | | | | | | (HCC); | | | | | | Supratherapeutic | | | | | | INR; Anemia; | | | | | | Essential | | | | | | hypertension, | | | | | | benign; Secondary | | | | | | hyperparathyroidism | | | | | | (of renal origin) | | | | | | (HCC); 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 male ROOM: [facility]4448-1 PCP: [facility] : 1965 Admit date: 04/30/2012 Discharge date and time: 05/02/2012 11:07 AM Admitting Physician: Al Coon DO Discharge Physician: Johnathon Colbert MD Consults: Dr. Singleton Primary Discharge Diagnoses: Acute Blood loss Anemia [...] worsened each time, so he presented at [facility] in [place], [place], where he continued to have GI bleeding and was transferred to [facility] for GI and ESRD support. Patient [...] on Coumadin. INR last nig ht at [facility] found to be 3.9 . In ED [...] Qty: 17 Doses, Refills: 0 ergocalciferol (DRISDOL) 38474 UNITS capsule Take 1 capsule by mouth [...] PCP 1 week Signed: JOHNATHON COLBERT [facility], [facility] 05/02/2012 11:07 AM documented in this enc [...] (none) Author Type: Registered Nurse Filed: 05/02/12 150 Date of Service: 05/02/12 1500 Status: Signed Welder Production Line Combination: Janene Robbins RN (Registered Nurse) Pt discharged from hospital with self care.discharge paperwork,prescription and instruction s given.Pt verbalizes understanding and has no further questions. Sean Willis T - 05/02/2012 11:20 AM PSTFormatting of this note might be different from the origi nal. Progress Notes by Sean eRid MD at 05/02/121119 Author: Sean Reid MD Service: Nephrology Author Type: Physician Filed: 05/02/12 1128 Date of Service: 05/02/121119 Status: Signed Welder Production Line Combination: Sean Reid MD (Physician) [facility] Service: NEPHROLOGY Progress Note Enrique Potter 47 y.o. [id number] male [facility] Hospital Day: LOS: 2 days SUBJECTIVE Patient seen and examined. On HD GI Bleeding, Blood in stool HISTORY OF PRESENT ILLNESS The patient is a 47 y.o. male who presents with GI bleed, started yesterday, had several bl oody bowel movements last night which worsened each time, so he presented at [facility] in [place], [place], where he continued to have GI bleeding and was transferred to [facility] for GI and ESRD support. Patient was recently hospitalized at [facility], admitted 04/02/12, and diagnosed with MSSA bacte remia and ARF requiring HD. Patient had L PICC line, later removed, and permacath placed, an d HD started with Dr Cook associate product integrity engineer. ID Dr Ford was also consulted. He is being treated w ith Vancomycin IV on HD days (MWF). After discharge, patient had US for vein mapping and was found to have upper extremity and IJ DVT's as shown in US report below, and patient was sta rted on Coumadin. INR last night at [facility] found to be 3.9 . In ED here the patient has been ordered to receive 2 PRBC's, 1 FFP, and IV protonix.,Jen gee been consulted. Nephrology consulted for evaluation and management of ESRD AND MAINTENANCE HD --- UNDER DR ASHFORD AT [place] [facility] GI BLEEDING, SEVERE Associated with fluid electrolyte acid base imbalances HAPPILY FOR 22 YEARS, LIVES in [place] AT HOME WITH , [employer]; RICKISUZU[employer]MA MPLOYED BEFORE WORKED AT [employer] IN [employer] COURSE SMOKE NONE ETOH QUIT 15 YEARS [...] EGD; Surgeon: John Singleton MD; Location: [facility]; rvice: Gastroenterology; Laterality: N/A; History Social [...] WITH [employer]; KIDSUNEMPLOYED BEFORE WORKED AT [employer] IN [employer] NONE ETOH QUIT 15 YEARS AGODRUGS: USES [...] RIGHT AXILLARY VEIN: 5.5 / 14.4 RIG HT RADIAL ARTERY: 2.0 / 5.2 RIGHT ULNAR [...] system. The possibi lity of "sound alike" director transition errors, addition and/or deletions may occur. If there is any question about this report please contact the originating radiologist. Electronically s igned by Mark Stark MD on 04/24/2012 12:28 PM CASE: [id number] PATIENT: ENRIQUE POTTER Surgical Pathology Report PATHOLOGIC DIAGNOSIS: KIDNEY, NEEDLE CORE BIOPSY: - SEVERE NODULAR AND GLOBAL GLOMERULOSCLEROSIS CONSISTENT WITH DIABETIC NEPHROPATHY. - HYPERTENSIVE VASCULAR CHANGES. - SEVERE TUBULAR ATROPHY AND INTERSTITIAL FIBROSIS. COMMENT: Dr. Cook has been phoned with this preliminary diagnosis on April 11, 2012. TECHNICAL NOTE: This case was seen and processed at [facility] in [place], [place]. (Report #: [id number]). AMW:clarisa CLINICAL HISTORY: 04/10/2012. (R) renal bx [...] DIABETES AND HYPERTENSIVE NEPHROSCLEROSIS ON HD AT [facility] HD UNIT UNDER DR COOK ALL WORK UP FOR VASCULITIS NEGATIVE LAST ADM C3, C4 levels wnl, hep b/c NR, RF NEG, KAPPA/LAMBDA RATIO WNL, HIV NR RASHID/LAMBDA RATIO 1.89 ANCA, ANTI GBM neg RENAL BX : renal bx 04/10/2012 SHOWED ESRD WITH LOTS OF SCARRING ,[facility] which shows advanced fibrotic changes [...] without HEPARIN PT TO CONT HD AT [facility] HD UNDER DR COOK Time spend over [...] 05/02/12928 Date of Service: 05/02/12927 Status: Signed Welder Production Line Combination: Jose Rafael Cesar RPH (Pharmacist) Vancomycin update- [...] Type: Pharmacist Filed: 05/01/121054 Date of Service: 11/08/12 1055 Status: Signed [employer] Combination: Jose Rafael Cesar RPH (Pharmacist) HD today, will receive vancomycin 750mg after HD Sean Willis T - 05/01/2012 10:52 AM PSTFormatting of this note might be different from the origi nal. Progress Notes by Sean Reid MD at 05/01/12 1052 Author: Sean Reid MD Service: Nephrology Author Type: Physician Filed: 05/01/12 1110 Date of Service: 05/01/12 1052 Status: Signed Welder Production Line Combination: Sean Reid MD (Physician) [facility] Service: NEPHROLOGY Progress Note Enrique Potter 47 y.o. [id number] [id number] male [facility] Hospital Day: LOS: 1 day SUBJECTIVE Patient seen and examined. GI Bleeding, Blood in stool HISTORY OF PRESENT ILLNESS The patient is a 47 y.o. male who presents with GI bleed, started yesterday, had several bl oody bowel movements last night which worsened each time, so he presented at [facility] in [place], [place], where he continued to have GI bleeding and was transferred to [facility] for GI and ESRD support. Patient was recently hospitalized at [facility], admitted 04/02/12, and diagnosed with MSSA bacte remia and ARF requiring HD. Patient had L PICC line, later removed, and permacath placed, an d HD started with Dr Cook associate product integrity engineer. ID Dr Ford was also consulted. He is being treated w ith Vancomycin IV on HD days (MWF). After discharge, patient had US for vein mapping and was found to have upper extremity and IJ DVT's as shown in US report below, and patient was sta rted on Coumadin. INR last night at [facility] found to be 3.9 . In ED here the patient has been ordered to receive 2 PRBC's, 1 FFP, and IV protonix.,Jen gee been consulted. Nephrology consulted for evaluation and management of ESRD AND MAINTENANCE HD -M-W- UNDER DR ASHFORD AT [place] [facility] GI BLEEDING, SEVERE Associated with fluid electrolyte acid base imbalances HAPPILY FOR 22 YEARS, LIVES in [place] AT HOME WITH , [employer]; KIDSUNE MPLOYED BEFORE WORKED AT [employer] IN [employer] COURSE SMOKE NONE ETOH QUIT 15 YEARS AGO, USES METHAMPHETAMINES PER PATIENT, NOW QUIT 03/2012 FATHER HAS COLON CANCER, HEART DISEASEMOTHER 15 YEARS AGONO KIDNEY PROBLEMS. OVER NIGHT STABLE, STOOL YELLOWISH, [...] WITH [employer]; KIDSUNEMPLOYED BEFORE WORKED AT [employer] [place] [employer] NONE ETOH QUIT 15 YEARS AGODRUGS: USES METHAMPHETAMINES PER PATIENTF ATHER HAS COLON CANCER, HEART DISEASEMOTHER 15 YEARS AGONO KIDNEY PROBLEMS. History reviewed. No pertinent family [...] eport please contact the originating radiologist. : [id number] PATIENT: ENRIQUE POTTER Surgical Pathology Report PATHOLOGIC DIAGNOSIS: KIDNEY, NEEDLE CORE BIOPSY: - SEVERE NODULAR AND GLOBAL GLOMERULOSCLEROSIS CONSISTENT WITH DIABETIC NEPHROPATHY. - HYPERTENSIVE VASCULAR CHANGES. - SEVERE TUBULAR ATROPHY AND INTERSTITIAL FIBROSIS. COMMENT: Dr. Cook has been phoned with this preliminary diagnosis on April 11, 2012. TECHNICAL NOTE: This case was seen and processed at [facility] in [place], [place]. (Report #: [id number]). AMW:clarisa CLINICAL HISTORY: 04/10/2012. (R) renal bx [...] AND HYPERTENSIVE NEPHROSCLEROSIS ON HD -- AT [facility] HD UNIT UNDER DR COOK ALL [...] Notes by Favio Dawkins MD at 05/01/12 8430 Author: Favio Dawkins MD Service: Hospitalist Author Type: Physician Filed: 05/01/12 9306 Date of Service: 05/01/12751 Status: Addendum Welder Production Line Combination: Favio Dawkins MD (Physician) Related Notes: Original Note by Favio Dawkins MD (Physician) filed at 05/01/12 1603 [facility] Service: Hospitalist Progress Note Hospital Day: LOS: 1 day Post-Op Day: * No surgery date entered * SUBJECTIVE Patient Summary: The patient is a 47 y.o. male who presents with GI bleed, started yes terday, had several bloody bowel movements last night which worsened each time, so he presen gela at [facility] in [place], [place], where he continued to have GI bleeding and wa s transferred to [facility] for GI and ESRD support. Patient was recently hospitalized at [facility], admitted 04/02/12, and diagnosed with MSSA bacte remia and ARF requiring HD. Patient had L PICC line, later removed, and permacath placed, an d HD started with Dr Cook associate product integrity engineer. ID Dr Ford was also consulted. He is being treated w ith Vancomycin IV on HD days (MWF). After discharge, patient had US for vein mapping and was found to have upper extremity and IJ DVT's as shown in US report below, and patient was sta rted on Coumadin. INR last night at [facility] found to be 3.9 . In ED [...] transfuse another 1 unit PRBC today, Dr. Singleton will be doing colonoscopy this aftern oon [...] hospitlist service will be seeing her ros rrow. More than 35 minutes spent directly face to face with patient for physical examination and talking with her at bedside as well as Computerized Physician Housing Management Officer. Disposition: Home Code Status: Full Code Favio Dawkins MD 05/01/2012 onversion Transaction, Provider Unknown - 04/30/2012 3:22 PM PSTFormatting of this note might be diff erent from the original. Progress Notes by Jose Rafael Cesar RPH at 04/30/12 1522 Author: Jose Rafael Cesar RPH Service: (none) Author Type: Pharmacist Filed: 04/30/121521 Date of Service: 04/30/121521 Status: Signed Welder Production Line Combination: Jose Rafael Cesar RPH (Pharmacist) Vancomycin note- [...] Date of Service: 04/30/12 1038 Status: Signed Welder Production Line Combination: Kelley Toussaint RPH (Pharmacist) Renal Dosing Monitoring: Enrique Potter 47 y.o. male Pharmacy dosing for renal function per Dr. Coon Patient on HD at home Plan per protocol: Medications dosed appropriately for HD. Pharmacy will continue monitoring patient for appropriate dosing per renal function. 04/30/2012 10:37 AM Pharmacist: Kelley Toussaint docume nted in this encounter Plan of [...] ESRD (end stage renal disease) on dialysis ([facility]) End stage renal disease | + + | Acute posthemorrhagic anemia | + + | DVT (deep venous thrombosis) ([facility]) Acute venous embolism and thrombosis of | [...]
--- OUTSIDE RECORDS SUMMARY | ~2019-05-20 | XMS | Encounter Summary ---
Demographics + + + | Address | [address] | | | [place] [address] | + + + | Home Phone | | + + + | Preferred Language | Unknown | + + + | Marital Status | Unknown | + + + | Congregational Affiliation | 1076 | + + + | Race | Unknown | + + + | Ethnic Group | Unknown | + + + Author + + + | Author | [facility] | | | and [place] | + + + | Organization | [facility] | | [...] Team Providers + +------+ + | Care Overhead Distribution Engineer Name | Role | Phone | + +------+ + PCP | Unavailable | + +------+ + Encounter Details +--------+ + + + + | Date | Type | Department | Care Team | Description | +--------+ + + + + | 10/08/ | Hospital | [facility] | Katie, | Pain; Hyperkalemia; | | 2017 - | Encounter | [facility] | MD Frank [address] | ESRD (end stage | | | | CARE FLOOR [address] | [address] | renal disease) ([facility]) | | 10/09/ | | [address] | [place] [address] | | | 2016 | | [place], [place] | [phone] | | | | | [address] | | | | | | [phone] | | | +--------+ + + + [...] Service: Hospitalist Author Type: Physician Filed: 10/09/16 3546 Date of Service: 10/09/16 1501 Status: Signed Ring Attacher: Gale Cuellar MD (Physician) [facility] Service: Hospitalist Physician Discharge Summary Patient ID: Enrique Potter 1965 51 y.o. Admit date: 10/08/2016 Discharge date: Admitting Physician: Frank Wilson MD Discharge Physician: Gale Cuellar MD Consultants: Treatment Team: Consulting Physician: Nakul Soria MD Admitting Provider: Frank Wilson MD [...] chest pain Patient was recently discharged from [facility] on 09/17/16 for full note please see discharge s boomy from hospitals. In summary the patient was [...] His fistula was reaccessed with success on 3/24/2 017. The femoral catheter was removed and [...] nocturnal dyspnea or orthopnea. He went to [facility] where he was found hyperkalemic with negative EKG signs of potassium toxicity. The patient received calcium gluconate, bicarbonate, albuterol and Kyde x leg. Patient refers that with these measures his chest discomfort disappeared, and since then he has remained chest pain-free. Patient was subsequently transferred to [facility] for further management and due to lack of [place] phrology coverage. ED provider already consulted nephrology, Dr. Soria. Patient will be admitted under the hospital service for further management." 10/09/16 For Discharge: Patient admitted for: Chest Pain (resolved) with elevated K+-7.2 (at [facility]). K-6.[address] [facility] 08/2016 echocardiogram-overall left ventricular systolic function was [...] pain, right upper quadrant 04/13/2012 Dialysis patient ([facility]) GI bleed 04/30/2012 from coumadin Walker as ambulation aid Gout Asthma pt not using inhaler any more, no symptoms DVT (deep venous thrombosis) ([facility]) x3 AV fistula ([facility]) lt arm Knee pain, right 07/06/2012 MSSA (methicillin susceptible Staphylococcus aureus) infection 04/11/2012 Anemia due to blood loss 04/30/2012 Amphetamine and other psychostimulant dependence, continuous 04/02/2012 Hyperphosphatemia 05/24/2012 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 Rash and nonspecific skin eruption 04/03/2012 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 Neuromuscular disorder ([facility]) neuropathy Hyperkalemia 11/09/2013 Chronic obstructive asthma with exacerbation ([facility]) 10/27/2013 SOB (shortness of breath) 10/27/2013 Diabetes mellitus type I ([facility]) Hyponatremia 09/08/2016 Chronic systolic heart failure ([facility]) 09/10/2016 Past Surgical History Procedure Laterality Date Unlisted procedure arthroscopy shoulder rt , ligaments Superficialization of av fistula Right 03/30/2014 Procedure: AV FISTULA - SUPERFICIALIZATION; Surgeon: Oskar Meyer MD; Location: [facility] OR; Service: Vascular; Laterality: Right; Av fistula placement Right 02/09/2014 Procedure: AV FISTULA; Surgeon: Oskar Meyer MD; Location: [facility] MAIN OR; Service: Vascul ar; Laterality: Right; Av fistula repair Left 07/11/2012 Procedure: AV FISTULA - GRAFT REPAIR/REVISION; Surgeon: Oskar Meyer MD; Location: [facility] OR; Service: Vascular; Laterality: Left; Superficialization of brachiobasilic fistula and right IJ perm cath insertion Dialysis fistula creation Left 07/11/2012 Procedure: DIALYSIS CATHETER - INSERTION; Surgeon: Oskar Meyer MD; Location: [facility] MAIN O R; Service: Vascular; Laterality: Left; removed dialysis catheter from left neck and plac ed new on in left chest, attempted in right neck but unable to place Catheter removal Right 07/07/2012 Procedure: DIALYSIS CATHETER - REMOVAL; Surgeon: Oskar Meyer MD; Location: [facility] BEDSIDE PROCEDURE; Service: General; Laterality: Right; perm cath Dialysis fistula creation Left 07/07/2012 Procedure: DIALYSIS CATHETER - INSERTION; Surgeon: Oskar Meyer MD; Location: [facility] BEDSID E PROCEDURE; Service: General; Laterality: Left; temporary dialysis catheter Knee arthroscopy Right 07/07/2012 Procedure: KNEE - ARTHROSCOPY; Surgeon: Favio Raza MD; Location: [facility] MAIN OR; S ervice: Orthopedics; Laterality: Right; After 1530 Av fistula placement Left 05/06/2012 Procedure: AV FISTULA; Surgeon: Oskar Meyer MD; Location: [facility] MA[facility] OR; Service: Vascul ar; Laterality: Left; Left arm possible right Colonoscopy with egd N/A 05/01/2012 Procedure: COLONOSCOPY W/ EGD; Surgeon: John Singleton MD; Location: [facility] ENDOSCOPY; Se rvice: Gastroenterology; Laterality: N/A; Discharged [...] categorization. 1. [place] er[place] Heart Association and [employer] College of [employer]iology Scientific Statement. Circulatio n (2008); 118: p 4694-9693 Echo Cardiac Adult Complete 10/09/2016 1. Overall [...] C) TempSrc: Axillary Axillary Oral Oral Resp: Height: Weight: SpO2: 98% 100% 97% 98% [...] Self Care [place]: [place] [address] [place] [id number] Medication List START taking these medications polyethylene [...] These medications were sent to [facility] [place], [place] - [address] [facility] [address] [place] [address] - polyethylene glycol packet Gale Cuellar MD [...] +---------+ + + | metformin | Take 2-2 tablets | | 0 | 03/07/20 | [...] as of this encounter Progress Notes Cee Castillo, Provider Unknown - 10/09/2016 2:45 PM PDTFormatting of this note m ight be different from the original. Nurse Progress Note by Lina Roberts RN at 10/09/161444 Author: Lina Roberts RN Service: (none) Author Type: Registered Nurse Filed: 10/09/166 Date of Service: 10/09/161444 Status: Signed Ring Attacher: Lina Roberts RN (Registered Nurse) Discussed all discharge and prescription information with patient. Patient verbalized an un derstanding of all discharge and prescription information. All personal belongings with pat ient at time of discharge. TELE notified. Nakul Lang MD - 10/09/2016 11:14 AM PDTFormatting of this note might be different from the or iginal. Progress Notes by Nakul Soria MD at 10/09/16 1114 Author: Nakul Soria MD Service: Nephrology Author Type: Physician Filed: 10/09/16 6340 Date of Service: 10/09/16 1114 Status: Signed Ring Attacher: Nakul Soria MD (Physician) [id number] Enrique Potter is a 51 y.o. man whose PCP is Dr. ANDRY DENG. He is known to have ESRD as per PMH> He was recently discharged from [facility] (admitted 09/07/16-09/15/16) where he had a complicated [...] breath. He presented to ED at [facility] where he was found to have severe hyperkalemia (no EKG changes). He was treated medically and was transferred to [facility] for urgent dialysis. The pain resolved after treatment. At [facility] he was hypertensive without tachycardia/fever/hypoxia. Lab work [...] is dialyzed Saturday an d Saturday at [place] dialysis unit using right UE AVF (Dr. 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 There is remote history of Etoh/recreational drug [...] outpatient HD MWF using right UE AVF. Casino Accountant evaluation for low K diet on follow [...] of care was discussed with Dr. Cuellar. NAKUL SORIA MD 10/09/2016 Portions of my previous notes have been carried over for continuity of care. He was seen earlier in the day and charting was completed later after rounds. Dictation software, [employer] was used which may contain error for [...] Progress Note by Hunter Cuello RN at 10/09/166 Author: Hunter Cuello RN Service: (none) Author Type: Registered Nurse Filed: 10/09/167 Date of Service: 10/09/16445 Status: Signed Ring Attacher: Hunter Cuello RN (Registered Nurse) Pt has been A/O x4, VSS, C/O pain x1, tylenol was given x1. Will continue to monitor. Afua Cuello RN. onver quique Transaction, Provider Unknown - 10/08/2016 4:59 PM PDT Nurse Progress Note by Augustus Rivers RN at 10/08/161658 Author: Augustus Rivers RN Service: (none) Author Type: Registered Nurse Filed: 10/08/16 170 Date of Service: 10/08/161658 Status: Signed Ring Attacher: Augustus Rivers RN (Registered Nurse) Pt A&O, [...] Progress Notes by Tracey Maldonado RD at 10/08/161609 Author: Tracey Maldonado RD Service: (none) Author Type: Registered Dietitian Filed: 10/08/161611 Date of Service: 10/08/161609 Status: Signed Ring Attacher: Tracey Maldonado RD (Registered Dietitian) 10/08/16 1600 [...] AM and he regularly receives HD on Sat, Sat , Fri. Reported by Patient Diet Experience [...] date 10/15/[address] onver quique Castillo, Provider Unknown - 10/08/2016 12:27 PM PDT Case Management by Heber Escobar RN at 10/08/16 1227 Author: Heber Escobar RN Service: (none) Author Type: Registered Nurse Filed: 10/08/16 9084 Date of Service: 10/08/167 Status: Signed Ring Attacher: Heber Escobar RN (Registered Nurse) 10/08/16 1226 [...] Anticipated Disposition Facility Type Home Met with: Enrique and discussed discharge planning, Pt is a 51 y.o., male who is independent and lives in [place]. He lives with his and 2 sons. Enrique doesn't use any DME and den ies having any concerns for discharge. Patient's PCP is:Dr. Deng Patient's insurance:Medicare/Medicare/[employer] Coverage concerns:none Medication coverage/concerns: yes/no Community resources utilized / needed: [facility] Assistance in transportation: family Identification of any specific education / training:none Barriers to Discharge / Alternative housing needed: none Anticipated DCP: Home with his family Shawn, Heber Qiu onver quique Transaction, Provider Unknown - 10/08/2016 6:19 AM PDT Progress Notes by Yasmin Jordan RPH at 10/08/16618 Author: Yasmin Jordan RPH Service: (none) Author Type: Pharmacist Filed: 10/08/16619 Date of Service: 10/08/16618 Status: Signed Ring Attacher: Yasmin Jordan RPH (Pharmacist) Lovenox dc'd by Dr. Yang JORDAN 10/08/2016 6:19 AM onver quique Transaction, Provider Unknown - 10/08/2016 6:18 AM PDT Progress Notes by Yasmin Jordan RPH at 10/08/16617 Author: Yasmin Jordan RPH Service: (none) Author Type: Pharmacist Filed: 10/08/16617 Date of Service: 10/08/16617 Status: Signed Ring Attacher: Yasmin Jordan RPH (Pharmacist) Clinical Pharmacy Note: Renal Monitoring Enrique Potter 51 y.o. male Ht Readings from Last 1 Encounters: 10/08/16 1.702 m (5' 7") Wt Readings from Last 1 Encounters: 10/08/16 81.602 kg (179 lb 14.4 oz) CREATININE Date Value Ref Range Status 10/08/2016 8.5* 0.70 - 1.30 mg/dL Final CREATININE: 8.5 mg/dL ABNORMAL (10/08/16 0216) Estimated creatinine clearance - 10.3 mL/min Decrease enoxaparin to 30mg SQ daily for CrCl < 30 ml/min. Pharmacy dosing for renal functi on per Dr. Wilson. Pharmacy will continue to monitor for changes in medication orders and in renal function and adjust accordingly. Yasmin Jordan R.Ph 10/08/2016 6:16 AM docume nted in this encounter Plan [...] | | | Fingerstick | performed at [facility];[address] | | LAB | | | | [address];[place], [place] | | | | | | [address] | | | | + + + [...] | | | Fingerstick | performed at [facility];[address] | | LAB | | | | [address];[place] | | | | | | [address] | | | | + + + [...] affecting final | | | categorization. 1. [employer] Heart Association and Iranian | | | College of Cardiology Scientific Statement. Circulation (2008); 118: p | | | 3277-4920 | | | 12:55 PM | | [...] Rad Conversion - 02/04/2019 10:13 PM PDT HISTORY:Chest pain. [...] potentially affecting final categorization. | | 1. [employer] Heart Association and [employer] College of Cardiology Scientific Statement. | | Circulation (2007); 118: p 0228-0189 Electronically signed by Wilton Lentz MD on [...] | |final categorization. | | | |1. [employer] Heart Association and [employer] College of [employer]iology Scientific Statement. Cir culation (2007); 118: p 8078-0295 | | | | | + + [...] | | | Fingerstick | performed at [facility];[address] | | LAB | | | | [address];[place] | | | | | | [address] | | | | + + + [...] + + + | RED CELL | 3.06 (L) | 4.20 - 5.70 | EXTERNAL | | | COUNT | | M/uL | LAB | | + + + + + + | Hgb | 8.8 (L) | 13.2 - 17.0 [...] | | | Basophils | performed at [facility], [address] | K/uL | LAB | | | | [address], | | | | | | [place] [address] | | | | + + + [...] EXTERNAL | | | | performed at [facility], [address] | | LAB | | | | [address], | | | | | | [place] [address] | | | | + + + [...] | | | | | [place] [address] | | | | + + + [...] + + | Hemoglobin | 5.3Comment: The Iranian | 4.0 - 6.0 % [...] | | | | | performed at [facility], [address] | | | | | | [address], | | | | | | [place] [address] | | | | + + + [...] | | | Direct | performed at [facility], [address] | | LAB | | | | [address], | | | | | | [place] [address] | | | | + + + [...] + + + + + + | LDL | 30Comment: Testing | mg/dL | EXTERNAL | | | Cholesterol | performed at [facility], [address] | | LAB | | | , | [address], | | | | | Calculated, | [place] [address] | | | | | External | | | | | + + [...] W | | | | | | [facility] [address], | | | | | | [place] [address] | | | | + + + [...] | | | Fingerstick | performed at [facility];[address] | | LAB | | | | [address]aan Jeffrey;[place] | | | | | | [address] | | | | + + + [...] W | | | | | | [facility], | | | | | | [place] [address] | | | | + + + [...] | | | Fingerstick | performed at [facility];[address] | | LAB | | | | [address]aan Jeffrey;[place] | | | | | | [address] | | | | + + + [...] | | | | | | at [facility], [address] | | | | | | [facility], | | | | | | [place] [address] | | | | + + + + + + + + | Specimen | + + | Blood specimen | | (specimen) | + + + +---------+ + + | Performing | Address | City/State[facility] | Phone Number | | Organization [...] | + + + | Patient Name: ENRIQUE POTTER Date of : 1965 | | | Performing Physician: Masoud Macedo MD, | | | FACC, FACP, FASNC [...] Excursion: 1.65 | | | cm E-F Sumner: 0.08 m/s TAPSE: 1.81 cm IVC diameter: [...] 0.49 m/s TV | | | Dec Sumner: 3.55 m/s2 TV Dec Time: 184.15 ms TV E Lenard: 0.64 | | | m/s TV E/A Ratio: 1.30 Pass Worker: Authenticated by: | | | Masoud Macedo MD, RINA, JENNIFER, CAMPBELL Report Date/Time: -- | | | [id number] | | + + + + + | Procedure Note | + + | Néstor, Rad Conversion - 02/04/2019 10:13 PM PDT Patient Name: Mohinder POTTER of | | : 1965 Performing Physician: Masoud Macedo MD, RINA, | | JENNIFER, | | CAMPBELL INDICATIONS--------- | | --Shortness of breath, Hyperkalemia, [...] mlLAESV Index (A-L): 33.42 ml/m2LAAs A2C: 18.93 [id number] A-L | | A2C: 63.74 mlLALs A2C: 4.77 cmLAAs A4C: 18.86 [id number] A-L A4C: 59.30 mlLALs | | A4C: 5.09 cmAo Diam: 3.22 cmAV Cusp: 2.15 cmLA Diam: 4.51 cmLA/Ao: 1.39%FS: | | 25.51 %EDV(Teich): 103.27 mlEF(Teich): 50.26 %ESV(Teich): 51.36 mlIVSd: 1.33 | | cmIVSs: 1.36 cmLVIDd: 4.71 cmLVIDs: 3.51 cmLVPWd: 1.07 cmLVPWs: 1.98 | | cmSV(Teich): 51.91 mlD-E Excursion: 1.65 cmE-F Sumner: 0.08 m/sTAPSE: 1.81 cmIVC | | diameter: 2.60 cmIVC collapse: 1.04 cmIVC % collapse: 57.39 %HR: 81.40 BPMAV | | maxP.84 mmHgAV meanP.14 mmHgAV Vmax: 1.48 m/Suyapa Vmean: 1.09 m/Suyapa VTI: | | 31.92 cmAVA Vmax: 2.17 cm2AVA (VTI): 2.19 [id number] Vmax: 0.00 cm2/m2AVAI (VTI): | | 0.00 cm2/m2LVCI Dopp: 2.93 l/zryf9RUYV Dopp: 5.57 l/minHR: 79.54 BPMLVOT maxPG: | [...] VTI: 24.75 cmMVA (VTI): | | 2.82 [id number] e': 0.08 m/sSeptal E/e': 13.19Lateral e': 0.10 [...] 2.37 m/sTV A Lenard: 0.49 m/sTV Dec Sumner: 3.55 m/s2TV | | Dec Time: 184.15 msTV E Lenard: 0.64 m/sTV E/A Ratio: 1.30 Pass Worker: | | ASAuthenticated by: Masoud Macedo MD, FACC, FACP, FASNCReport Date/Time: -- | | [id number] IMPRESSION: 1. Overall left ventricular systolic function [...] | |D-E Excursion: 1.65 cm | |E-F Sumner: 0.08 m/s | |TAPSE: 1.81 cm | [...] A Lenard: 0.49 m/s | |TV Dec Sumner: 3.55 m/s2 | |TV Dec Time: 184.15 ms | |TV E Lenard: 0.64 m/s | |TV E/A Ratio: 1.30 | | | |Pass Worker: | |Authenticated by: Masoud Macedo MD, FACC, FACP, CAMPBELL | |Report Date/Time: -- [id number]:28 | | | |IMPRESSION: | |1. Overall [...] | | | Fingerstick | performed at [facility];[address] | | LAB | | | | [address];[place] | | | | | | [address] | | | | + + + [...] | | | | | | ACUTE TX Testing | | | | | | performed at [facility];[address] | | | | | | [facility];[place], [place] | | | | | | [address] | | | | + + + [...] performed at [facility];8 | | LAB | | | | [address] Jeffrey;[place], [place] | | | | | | [address] | | | | + + + [...] W | | | | | | [facility], | | | | | | [place] [address] | | | | + + + [...] | | | | | | ACUTE TX Testing | | | | | | performed at [facility];[address] | | | | | | [address];[place], [place] | | | | | | [address] | | | | + + + [...] | | | Fingerstick | performed at [facility];[address] | | LAB | | | | [place] [place] | | | | | | [address] | | | | + + + [...] [facility];[address] | | LAB | | | | [address];[place], [place] | | | | | | [address] | | | | + + + [...] performed at [facility];[address] | | | | | | [facility];[place], [place] | | | | | | [address] | | | | + + + [...] | | Patient | performed at [facility];[address] | | LAB | | | | [address];[place] | | | | | | [address] | | | | + + + + + + + + | Specimen | + + | | + + + +---------+ + + | Performing | Address | City/State/Zipcode | Phone Number | | Organization | | | | + +---------+ + + | EXTERNAL LAB | | | | + +---------+ + + Protime INR (10/08/2016 2:39 AM PDT) + + [...] [facility];[address] | | | | | | [address];[place], [place] | | | | | | [address] | | | | + + + [...] + + + + | Hgb | 8.8 (L) | 13.2 - 17.0 [...] | | Basophils | performed at [facility];[address] | K/uL | LAB | | | | [address]aan Jeffrey;[place] | | | | | | [address] | | | | + + + [...] | LAB | | | | [address];[place], [place] | | | | | | [address] | | | | + + + [...] [facility];[address] | | LAB | | | | [address] Jeffrey;[place] | | | | | | [address] | | | | + + + [...] + + -+ | RED CELL | SPECIMEN CLOTTED, SAMPLE | 4.20 - 5.70 | EXTERNAL | | | COUNT | TO BE REDRAWN | M/uL | LAB | | + + + + + -+ | Hgb | SPECIMEN CLOTTED, SAMPLE | 13.2 - [...] | | | | | | ACUTE TX Testing | | | | | | performed at [facility];[address] | | | | | | [address];[place], [place] | | | | | | [address] | | | | + + + [...]
--- OUTSIDE RECORDS SUMMARY | ~2019-05-20 | XMS | Clinical Summary ---
Demographics + + + | Address | [address] | | | [place] [address] | + + + | Home Phone | | + + + | Preferred Language | Unknown | + + + | Marital Status | Unknown | + + + | Mandaen Affiliation | 1076 | + + + | Race | Unknown | + + + | Ethnic Group | Unknown | + + + Author + + + | Author | [facility] | | | and [place] | + + + | Organization | [facility] | | | [...] Providers + +------+ + | Care Medical Imaging Technologist Name | Role | Phone | + [...] + + + + | Terrence: JAMIL [id number] Decision | + + + +---+ | [...] + | Mother | | | from [place] | | | | (Age | | [...] | Left: | | | 10/05/ | [id number] | | Curved - Sn/AImplanted: Qty: | [...] | Left: | | | 02/22/ | [id number] | | Pre Cvd Chcf Std | | Neck | | | 2012 | 0 | | Hemosplit 14.5 24cm - | | | | | | /[id number] | | [id number]: Qty: 1 on | | | | [...] +--------+ +---------+--------+ | MEDICARE | MEDICA | [id number] | 06/24/19 | [phone] | | Medica | | | RE | | 13-Pre | 5 | | re | | | PART A | | sent | | | | | | AND B | | | | | | + +--------+ +--------+ +---------+--------+ | HEALTH | IHS | [id number] | | | | Indemn | | SERVICE | YELLOW | | 963-Pr | | | ity | | | HAWK | | esent | | | | + +--------+ +--------+ +---------+--------+ | MEDICAID [place] | MEDICA | [id number] | | [phone] | | Medica | [...] Person | Self | [birth year] | [address] | | | al/Leoncio | | 1965 | [phone] | [address] [place] | | | juan | | | 7 (Home) | [address] | + +--------+ +--------+ + + | Enrique Potter | Person | Self | [birth year] | | [address] | | | al/Fam | | 1965 | [phone] | [address] [place] | | | juan | | | [address] ([place]) | [address] | + +--------+ +--------+ + +
--- OUTSIDE RECORDS SUMMARY | ~2019-05-20 | XMS | Encounter Summary ---
Demographics + + + | Address | [address] | | | [place] [address] | + + + | Home Phone | | + + + | Preferred Language | Unknown | + + + | Marital Status | Unknown | + + + | Catholic Affiliation | [id number] | + + [...] Providers + +------+ + | Care Epic Cupid Analyst Name | Role | Phone | + +------+ + PCP | Unavailable | + +------+ + Encounter Details +--------+ + + + + | Date | Type | Department | Care Team | Description | +--------+ + + + + | 04/02/ | Hospital | [facility] | MilanjuliaDorarobi, | Acute renal failure | | 2011 - | Encounter | [facility] | [address] | ([facility]); Acidosis; | | | | CARE [address]LOOR [address] | [place] [address] | Hyperphosphatemia; | | 04/15/ | | [address] | [phone] | Rash and nonspecific | | 2011 | | [place], [place] | | skin eruption; | | | | [address] | | Renal failure, acute | | | | [phone] | | ([facility]); Vitamin d | | | | | | deficiency; | | | | | | Secondary | | | | | | hyperparathyroidism | | | | | | (of renal origin) | | | | | | ([facility]); Hypokalemia; | | | | | [...] | | | | | uncontrolled ([facility]); | | | | | | 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, | | | | | | continuous ([facility]); | | | | | [...] | | | | | | ([facility]); Hyponatremia; | | | | | | Hypoalbuminemia; | | | | | | Obesity (BMI | | | | | | 30-39.9); | | | | | | Unspecified asthma; | | | | | | Chest pain; Protein | | | | | | calorie malnutrition | | | | | | ([facility]); Anemia; | | | | | | Hyperkalemia; | | | | | | Uncontrolled | | | | | | diabetes mellitus | | | | | | ([facility]); | | | | | [...] Summaries by Vikram Chandra MD at 04/15/12 6353 Author: Vikram Chandra MD Service: Hospitalist Author Type: Physician Filed: 04/15/12 9928 Date of Service: 04/15/126 Status: Signed Fingerprint Clerk: Vikram Chandra MD (Physician) [facility] Service: Hospitalist Physician Discharge Summary Pt: Carol Potter AGE/SEX: 47 y.o. male ROOM: [address] [place] [address] PCP: Ashly Quick MD, MD : 1965 [...] [facility], [facility] from [facility] . Was there at 04/01 at [...] pathology specimen will also be reevaluated in [place] [facility] -kidney biopsy shows advanced fibrotic changes with little chance of recovery. HD planned i n the [place] area He Had no CP, SOB, N/V, [...] Refills: 0 Associated Diagnoses: Hyperphosphatemia ergocalciferol (DRISDOL) 40131 UNITS capsule Take 1 capsule by mouth [...] dictation of summary. Signed: VIKRAM CHANDRA MD, [facility] 04/15/2012 12:26 PM documented in this enc [...] 04/15/121210 Date of Service: 04/15/121210 Status: Signed Fingerprint Clerk: Devaughn Flores RN (Registered Nurse) Took over care from Kristi DYE Cosmo Lang MD - 04/15/2012 11:21 AM PDTFormatting of this note might be different from the or iginal. Progress Notes by Cosmo Soria MD at 04/15/12 1121 Author: Cosmo Soria MD Service: Nephrology Author Type: Physician Filed: 04/16/12 0902 Date of Service: 04/15/121120 Status: Signed Fingerprint Clerk: Cosmo Soria MD (Physician) PCP is Ashly [...] Left UE PICC line in situ. CASE: [id number] PATIENT: CAROL POTTER Surgical Pathology Report PATHOLOGIC [...] with a Newman catheter in place. CASE: [id number] PATIENT: CAROL POTTER Surgical Pathology Report PATHOLOGIC [...] be set up for maintenance HD at [place] under Dr. Timmons. BP: Better controlled. However [...] 36 minutes involved in coordination of care [facility] primary care provider and ID. Plan of care was understood and verbalized back. COSMO SORIA MD 04/16/2012 Elsie Hsu - 04/15/2012 10:51 AM PDT Progress Notes by Elsie Lerner MD at 04/15/12 1051 Author: Elsie Lerner MD Service: (none) Author Type: Physician Filed: 04/15/12 1142 Date of Service: 04/15/12 1051 Status: Signed Fingerprint Clerk: Elsie Lerner MD (Physician) [facility] Service: Infectious Disease Progress Note Hospital Day: [...] lesions at upper extremities. LUE PICC at [facility]. There is a small ulcer with yel [...] RECENT OR PAST INFECTION. Testing performed at [facility], [address] [place] [address] HSV II AB,IGG 0.35 <0.90 IV Comments: [...] II GG2 RECOMBINANT ANTIGENS. Testing performed at [facility], [address] [facility] [address] HSV, IGM 0.79 <0.91 OD RATIO Comments: <0.91 NEGATIVE: NO CLINICALLY SIGNIFICANT LEVEL OF HSV IGM ANTIBODIES DETECTED. DUE TO THE CROSS REACTIVITY BETWEEN HSV 1 AND HSV 2 IGM ANTIBODIES, THIS ASSAY CANNOT DISCRIMINATE BETWEEN THEM AND MEASURES HSV TYPE 1 AND TYPE 2 COMBINED IGM ANTIBODIES. Testing performed at [facility], [address] [facility] [address] Lab Flowsheet Order Details View Encounter Lab and Collection Details Routing Result History Specimen Collected: 04/06/12 3:45 PM Last Resulted: 04/08/12 12:12 PM Encounter View Encounter Result Information Abnormal Status: Final result (04/08/2012 12:12 PM) Provider Status: Ordered Microbiology Results (last 14 days) Procedure Component Value Units Date/Time Blood culture, 2 of 2 [[id number]] (Abnormal) Collected:04/12/12 1231 Order Status:Completed Updated:04/15/12946 Specimen Information:Blood Specimen Description BLOOD, PERIPHERAL DRAW Specimen Description Result: Testing performed at [facility];[address] [place] [address] SPECIAL REQUESTS L WRIST SPECIAL REQUESTS Result: Testing performed at [facility];[address] [place] [address] GRAM STAIN Result: GRAM POSITIVE COCCI SEEN ON GRAM STAIN FROM AEROBIC BOTTLE SMEAR RESULTS CALLED TO AND READ BACK BY: SOULEYMANE Levine IN 4RP AT 0732 ON [id number] BY CRK GRAM STAIN GRAM POSITIVE COCCI IN CLUSTERS GRAM STAIN Result: CALLED RESULTS TO BEST Tan ON 4RP AT 1140 ON 04/14/12 [facility] RESULTS REPEATED GRAM STAIN Result: Testing performed at [facility];[address] [place] [address] CULTURE STAPHYLOCOCCUS AUREUS (A) CULTURE GROWTH IN TWO OF TWO BOTTLES (A) CULTURE TIME TO DETECTION: 0.71 DAYS CULTURE Result: Testing performed at [facility], [address] [place] [address] REPORT STATUS 04/15/2012 FINAL Organism STAPHYLOCOCCUS AUREUS [...] STAPHYLOCOCCUS AUREUS Blood culture, 1 of 2 [[id number]] (Abnormal) Collected:04/12/12 1200 Order Status:Completed Updated:04/15/12946 Specimen Information:Blood Specimen Description BLOOD, LINE DRAW Specimen Description Result: Testing performed at [facility];[address] [place] [address] SPECIAL REQUESTS ART SPECIAL REQUESTS Result: Testing performed at [facility];[address] [place] [address] GRAM STAIN Result: GRAM POSITIVE COCCI SEEN ON GRAM STAIN FROM AEROBIC BOTTLE SMEAR RESULTS CALLED TO AND READ BACK BY: DEIDRE Mccullough IN 4RP AT 0611 ON 13APR2012 BY K GRAM STAIN Result: Testing performed at [facility];[address] [place] [address] CULTURE STAPHYLOCOCCUS AUREUS (A) CULTURE GROWTH IN ONE OF TWO BOTTLES (A) CULTURE TIME TO DETECTION: 0.65 DAYS CULTURE Result: Testing performed at [facility], [address] [place] [address] REPORT STATUS 04/15/2012 FINAL Organism STAPHYLOCOCCUS AUREUS [...] STAPHYLOCOCCUS AUREUS (TERRANCE) STAPHYLOCOCCUS AUREUS Blood culture [[id number]] (Abnormal) Collected:04/11/12 0217 Order Status:Completed Updated:04/15/12940 Specimen Information:Blood Specimen Description BLOOD, PERIPHERAL DRAW Specimen Description Result: Testing performed at [facility];[address] [place] [address] SPECIAL REQUESTS RHAND SPECIAL REQUESTS Result: Testing performed at [facility];[address] [place] [address]259 GRAM STAIN Result: GRAM POSITIVE COCCI IN CLUSTERS SEEN IN AEROBIC BOTTLE SMEAR RESULTS CALLED TO AND READ BACK BY: DAVID Díaz/4RP 1921 JCM (A) GRAM STAIN Result: GRAM POSITIVE COCCI IN CLUSTERS SEEN ON SMEAR OF ANAEROBIC BOTTLE GRAM STAIN Result: CALLED TO 4RP/DAVID Díaz ON 04/14/12 AT 0657 BY LL READBACK GRAM STAIN Result: Testing performed at [facility];[address] [place] [address] CULTURE STAPHYLOCOCCUS AUREUS (A) CULTURE TIME TO DETECTION: 0.67 DAYS CULTURE GROWTH IN TWO OF TWO BOTTLES (A) CULTURE Result: VANCOMYCIN TERRANCE IS LESS THAN OR EQUAL TO 0.5 Mcg/mL CULTURE Result: Testing performed at [address] [address] REPORT STATUS 04/15/2012 FINAL Organism STAPHYLOCOCCUS AUREUS [...] STAPHYLOCOCCUS AUREUS Blood culture, 1 of 2 [[id number]] (Abnormal) Collected:04/10/121531 Order Status:Completed Updated:04/15/12937 Specimen Information:Blood Specimen Description BLOOD, PERIPHERAL DRAW Specimen Description Result: Testing performed at [facility];[address] [place] [address] SPECIAL REQUESTS LAC SPECIAL REQUESTS Result: Testing performed at [facility];[address] [place] [address]486 GRAM STAIN Result: GRAM POSITIVE COCCI SEEN ON GRAM STAIN FROM AEROBIC AND ANAEROBIC BOTTLES SMEAR RESULTS CALLED TO AND READ BACK BY: LINDA Mccullough IN P AT 1340 ON 11APR2012 BY CRK GRAM STAIN Result: Testing performed at [facility];[address] [place] [address] CULTURE STAPHYLOCOCCUS AUREUS (A) CULTURE STREPTOCOCCUS ANGINOSUS (A) CULTURE TIME TO DETECTION: 0.85 DAYS CULTURE GROWTH IN TWO OF TWO BOTTLES (A) CULTURE Result: Testing performed at [address] [address] REPORT STATUS 04/15/2012 FINAL Organism STAPHYLOCOCCUS AUREUS [...] STREPTOCOCCUS ANGINOSUS Fecal occult blood (in house) [[id number]] (Abnormal) Collected:04/15/12 0608 Order Status:Completed Updated:04/15/1236 Specimen Information:Stool Fecal Occult Blood POSITIVE (A) Comment: Testing performed at [facility];[address] [place] [address];[place] [address] Fecal occult blood (in house) [[id number]] (Abnormal) Collected:04/14/122049 Order Status:Completed Updated:04/14/122114 Specimen Information:Stool Fecal Occult Blood POSITIVE (A) Comment: Testing performed at [facility];[address] [place] [address] Blood culture, 2 of 2 [[id number]] Collected:04/13/12 1115 Order Status:Completed Updated:04/14/12654 Specimen Information:Blood Specimen Description BLOOD, PERIPHERAL DRAW Specimen Description Result: Testing performed at [facility];[address] [place] [address];[place] [address] SPECIAL REQUESTS L WRIST SPECIAL REQUESTS Result: Testing performed at [facility];[address] [place] [address] CULTURE NO GROWTH AT THIS TIME CULTURE Result: Testing performed at [facility];[address] [place] [address] REPORT STATUS PENDING Blood culture, 1 of 2 [[id number]] Collected:04/13/12 1109 Order Status:Completed Updated:04/14/12654 Specimen Information:Blood Specimen Description BLOOD, PERIPHERAL DRAW Specimen Description Result: Testing performed at [facility];[address] [place] [address];[place] [address] SPECIAL REQUESTS L ARM SPECIAL REQUESTS Result: Testing performed at [facility];[address] [place] [address] CULTURE NO GROWTH AT THIS TIME CULTURE Result: Testing performed at [facility];[address] [place] [address] REPORT STATUS PENDING Blood culture, 2 of 2 [[id number]] (Abnormal) Collected:04/10/12 1542 Order Status:Completed Updated:04/13/12 0732 Specimen Information:Blood Specimen Description BLOOD, PERIPHERAL DRAW Specimen Description Result: Testing performed at [facility];[address] [place] [address] SPECIAL REQUESTS RAC SPECIAL REQUESTS Result: Testing performed at [facility];[address] [place] [address] GRAM STAIN Result: GRAM POSITIVE COCCI IN CLUSTERS SEEN ON SMEAR FROM AEROBIC BOTTLE (A) GRAM STAIN Result: SMEAR RESULTS CALLED TO AND READ BACK BY: YAZMIN DUNCAN, 04/10/12 AT 2356 BY GRAM STAIN Result: Testing performed at [facility];[address] [place] [address] CULTURE STAPHYLOCOCCUS AUREUS (A) CULTURE GROWTH IN ONE OF TWO BOTTLES (A) CULTURE TIME TO DETECTION: 0.31 DAYS CULTURE VANCOMYCIN TERRANCE IS EQUAL TO ONE. CULTURE Result: Testing performed at [address] [address] REPORT STATUS 04/13/2012 FINAL Organism STAPHYLOCOCCUS AUREUS [...] (TERRANCE) STAPHYLOCOCCUS AUREUS Culture, drain tube tip [[id number]] (Abnormal) Collected:04/10/12 1905 Order Status:Completed Updated:04/12/12 1136 Specimen Information:Other / Catheter Tip Specimen Description CATHETER TIP Specimen Description Result: Testing performed at [facility];[address] [place] [address] CULTURE >15 COLONIES STAPHYLOCOCCUS AUREUS (A) CULTURE Result: THIS S. AUREUS IS SUSCEPTIBLE TO METHICILLIN (A) CULTURE Result: Testing performed at [address] [address] REPORT STATUS 04/12/2012 FINAL AFB culture and smear [[id number]] Collected:04/03/12 1415 Order Status:Completed Updated:04/11/12 1251 Specimen Information:Sputum Specimen Description SPUTUM Specimen Description Result: Testing performed at [facility];[address] [place] [address]13 AFB STAIN NO ACID FAST BACILLI SEEN AFB STAIN Result: Testing performed at [address] [address] CULTURE NO GROWTH AT THIS TIME CULTURE Result: Testing performed at [facility], [address] [place] [address] REPORT STATUS PENDING Urine culture [[id number]] (Abnormal) Collected:04/07/12 1336 Order Status:Completed Updated:04/09/12 1356 Specimen Information:Urine Specimen Description URINE, COLLECTION NOT GIVEN Specimen Description Result: Testing performed at [facility];[address] [place] [address] CULTURE >100,000 CFU/ML STAPHYLOCOCCUS AUREUS (A) CULTURE Result: Testing performed at [facility], [address] [place] [address] REPORT STATUS 04/09/2012 FINAL Organism STAPHYLOCOCCUS AUREUS [...] STAPHYLOCOCCUS AUREUS Blood culture, 1 of 2 [[id number]] Collected:04/03/12 141 Order Status:Completed Updated:04/09/12701 Specimen Information:Blood Specimen Description BLOOD, PERIPHERAL DRAW Specimen Description Result: Testing performed at [facility];[address] [place] [address] SPECIAL REQUESTS LAC SPECIAL REQUESTS Result: Testing performed at [facility];[address] [place] [address]2006 CULTURE NO GROWTH IN 5 DAYS. CULTURE Result: Testing performed at [facility];[address] [place] [address] REPORT STATUS 04/09/2012 FINAL Blood culture, 2 of 2 [[id number]] Collected:04/03/12 141 Order Status:Completed Updated:04/09/12701 Specimen Information:Blood Specimen Description BLOOD, PERIPHERAL DRAW Specimen Description Result: Testing performed at [facility];[address] [place] [address] SPECIAL REQUESTS RAC SPECIAL REQUESTS Result: Testing performed at [facility];[address] [place] [address]22 CULTURE NO GROWTH IN 5 DAYS. CULTURE Result: Testing performed at [facility];[address] [place] [address] REPORT STATUS 04/09/2012 FINAL Urine culture [[id number]] (Abnormal) Collected:04/06/12 0022 Order Status:Completed Updated:04/08/12 1505 Specimen Description URINE, COLLECTION NOT GIVEN Specimen Description Result: Testing performed at [facility];[address] [place] [address]92 CULTURE >100,000 CFU/ML STAPHYLOCOCCUS AUREUS (A) CULTURE Result: Testing performed at [facility], [address] [place] [address] REPORT STATUS 04/08/2012 FINAL Organism STAPHYLOCOCCUS AUREUS [...] (TERRANCE) >100,000 CFU/ML STAPHYLOCOCCUS AUREUS Urine Culture [[id number]] Collected:04/02/12228 Order Status:Completed Updated:04/04/121954 Specimen Information:Urine Specimen Description CATHETERIZED URINE Specimen Description Result: Testing performed at [facility];[address] [place] [address] 29579 CULTURE NO GROWTH 2 DAYS CULTURE Result: Testing performed at [facility], [address] [place] [address] REPORT STATUS 04/04/2012 FINAL PROBLEM LIST Active [...] pathology specimen will also be reevaluated in [facility] -kidney biopsy shows advanced fibrotic changes with little chance of recovery. HD planned in the [place] area ID follow up in a week Code Status: Full Code ELSIE LERNER MD 04/15/2012 [place]an[place], Elsie Rose - 04/14/2012 3:46 PM PDT Progress Notes by Elsie Lerner MD at 04/14/12 6503 Author: Elsie Lerner MD Service: (none) Author Type: Physician Filed: 04/14/12 9920 Date of Service: 04/14/12 0406 Status: Signed Fingerprint Clerk: Elsie Lerner MD (Physician) [facility] Service: Infectious Disease Progress Note Hospital Day: [...] ions at upper extremities. LUE PICC at [facility]. Psychiatric: Thought content normal. DATA CBC: Lab [...] Units Date/Time Blood culture, 2 of 2 [[id number]] (Abnormal) Collected:04/12/12 1231 Order Status:Completed Updated:04/14/12 1434 Specimen Information:Blood Specimen Description BLOOD, PERIPHERAL DRAW Specimen Description Result: Testing performed at [facility];[address] [place] [address]852 SPECIAL REQUESTS L WRIST SPECIAL REQUESTS Result: Testing performed at [facility];[address] [place] [address] 20684 GRAM STAIN Result: GRAM POSITIVE COCCI SEEN ON GRAM STAIN FROM AEROBIC BOTTLE SMEAR RESULTS CALLED TO AND READ BACK BY: SOULEYMANE Levine IN 4RP AT 0732 ON [id number] BY K GRAM STAIN GRAM POSITIVE COCCI IN CLUSTERS GRAM STAIN Result: CALLED RESULTS TO BEST Tan ON 4RP AT 1140 ON 04/14/12 [facility] RESULTS REPEATED GRAM STAIN Result: Testing performed at [facility];[address] [place] [address]0 CULTURE Result: STAPHYLOCOCCUS AUREUS SUSCEPTIBILITY TO FOLLOW (A) CULTURE GROWTH IN TWO OF TWO BOTTLES (A) CULTURE TIME TO DETECTION: 0.71 DAYS CULTURE Result: Testing performed at [facility], [address] [place] [address] REPORT STATUS PENDING Blood culture [[id number]] (Abnormal) Collected:04/11/12 0217 Order Status:Completed Updated:04/14/12 0854 Specimen Information:Blood Specimen Description BLOOD, PERIPHERAL DRAW Specimen Description Result: Testing performed at [facility];[address] [place] [address] 98479 SPECIAL REQUESTS RHAND SPECIAL REQUESTS Result: Testing performed at [facility];[address] [place] [address] 90184 GRAM STAIN Result: GRAM POSITIVE COCCI IN CLUSTERS SEEN IN AEROBIC BOTTLE SMEAR RESULTS CALLED TO AND READ BACK BY: DAVID Díaz/4RP 1921 JCM (A) GRAM STAIN Result: GRAM POSITIVE COCCI IN CLUSTERS SEEN ON SMEAR OF ANAEROBIC BOTTLE GRAM STAIN Result: CALLED TO 4RP/DAVID Díaz ON 04/14/12 AT 0657 BY READBACK GRAM STAIN Result: Testing performed at [facility];[address] [place] [address] CULTURE STAPHYLOCOCCUS AUREUS (A) CULTURE TIME TO DETECTION: 0.67 DAYS CULTURE GROWTH IN TWO OF TWO BOTTLES (A) CULTURE Result: VANCOMYCIN TERRANCE IS LESS THAN OR EQUAL TO 0.5 Mcg/mL CULTURE Result: Testing performed at [facility], [address] [place] [address] REPORT STATUS 04/14/2012 FINAL Organism STAPHYLOCOCCUS AUREUS [...] STAPHYLOCOCCUS AUREUS Blood culture, 1 of 2 [[id number]] (Abnormal) Collected:04/12/12 1200 Order Status:Completed Updated:04/14/1243 Specimen Information:Blood Specimen Description BLOOD, LINE DRAW Specimen Description Result: Testing performed at [facility];[address] [place] [address]22[address] SPECIAL REQUESTS ART SPECIAL REQUESTS Result: Testing performed at [facility];[address] [place] [address] 67584 GRAM STAIN Result: GRAM POSITIVE COCCI SEEN ON GRAM STAIN FROM AEROBIC BOTTLE SMEAR RESULTS CALLED TO AND READ BACK BY: DEIDRE FLOWERS 4R AT 0611 ON [id number] BY CRK GRAM STAIN Result: Testing performed at [facility];[address] [place] [address] 27761 CULTURE Result: STAPHYLOCOCCUS AUREUS SUSCEPTIBILITY TO FOLLOW (A) CULTURE GROWTH IN ONE OF TWO BOTTLES (A) CULTURE TIME TO DETECTION: 0.65 DAYS CULTURE Result: Testing performed at [address] [address] REPORT STATUS PENDING Blood culture, 1 of 2 [[id number]] (Abnormal) Collected:04/10/12 1532 Order Status:Completed Updated:04/14/12 0805 Specimen Information:Blood Specimen Description BLOOD, PERIPHERAL DRAW Specimen Description Result: Testing performed at [facility];[address] [place] [address] SPECIAL REQUESTS LAC SPECIAL REQUESTS Result: Testing performed at [facility];[address] [place] [address] 64858 GRAM STAIN Result: GRAM POSITIVE COCCI SEEN ON GRAM STAIN FROM AEROBIC AND ANAEROBIC BOTTLES SMEAR RESULTS CALLED TO AND READ BACK BY: LINDA Mccullough IN 4RP AT 1340 ON [id number] BY CRK GRAM STAIN Result: Testing performed at [facility];[address] [place] [address]055 CULTURE STAPHYLOCOCCUS AUREUS (A) CULTURE Result: STREPTOCOCCUS ANGINOSUS SUSCEPTIBILITY TO FOLLOW (A) CULTURE TIME TO DETECTION: 0.85 DAYS CULTURE GROWTH IN TWO OF TWO BOTTLES (A) CULTURE Result: Testing performed at [address] [address] REPORT STATUS PENDING Organism STAPHYLOCOCCUS AUREUS Culture [...] STAPHYLOCOCCUS AUREUS Blood culture, 2 of 2 [[id number]] Collected:04/13/12 1115 Order Status:Completed Updated:04/14/12654 Specimen Information:Blood Specimen Description BLOOD, PERIPHERAL DRAW Specimen Description Result: Testing performed at [facility];[address] [place] [address] SPECIAL REQUESTS L WRIST SPECIAL REQUESTS Result: Testing performed at [facility];[address] [place] [address] 68340 CULTURE NO GROWTH AT THIS TIME CULTURE Result: Testing performed at [facility];[address] [place] [address] 14830 REPORT STATUS PENDING Blood culture, 1 of 2 [[id number]] Collected:04/13/12 1109 Order Status:Completed Updated:04/14/12654 Specimen Information:Blood Specimen Description BLOOD, PERIPHERAL DRAW Specimen Description Result: Testing performed at [facility];[address] [place] [address] 307[address] SPECIAL REQUESTS L ARM SPECIAL REQUESTS Result: Testing performed at [facility];[address] [place] [address] CULTURE NO GROWTH AT THIS TIME CULTURE Result: Testing performed at [facility];[address] [place] [address] REPORT STATUS PENDING Blood culture, 2 of 2 [[id number]] (Abnormal) Collected:04/10/12 1542 Order Status:Completed Updated:04/13/12 0732 Specimen Information:Blood Specimen Description BLOOD, PERIPHERAL DRAW Specimen Description Result: Testing performed at [facility];[address] [place] [address] 09248 SPECIAL REQUESTS RAC SPECIAL REQUESTS Result: Testing performed at [facility];[address] [place] [id number] GRAM STAIN Result: GRAM POSITIVE COCCI IN CLUSTERS SEEN ON SMEAR FROM AEROBIC BOTTLE (A) GRAM STAIN Result: SMEAR RESULTS CALLED TO AND READ BACK BY: YAZMIN DUNCAN 04/10/12 AT 2356 BY GRAM STAIN Result: Testing performed at [facility] [place] [address] CULTURE STAPHYLOCOCCUS AUREUS (A) CULTURE GROWTH IN ONE OF TWO BOTTLES (A) CULTURE TIME TO DETECTION: 0.31 DAYS CULTURE VANCOMYCIN TERRANCE IS EQUAL TO ONE. CULTURE Result: Testing performed at [facility], [address] [place] [address] 36082 REPORT STATUS 04/13/2012 FINAL Organism STAPHYLOCOCCUS AUREUS [...] (TERRANCE) STAPHYLOCOCCUS AUREUS Culture, drain tube tip [[id number]] (Abnormal) Collected:04/10/12 1905 Order Status:Completed Updated:04/12/12 1136 Specimen Information:Other / Catheter Tip Specimen Description CATHETER TIP Specimen Description Result: Testing performed at [facility];[address] [place] [address]76 CULTURE >15 COLONIES STAPHYLOCOCCUS AUREUS (A) CULTURE Result: THIS S. AUREUS IS SUSCEPTIBLE TO METHICILLIN (A) CULTURE Result: Testing performed at [facility], [address] [place] [address] 57190 REPORT STATUS 04/12/2012 FINAL AFB culture and smear [[id number]] Collected:04/03/12 1415 Order Status:Completed Updated:04/11/12 1251 Specimen Information:Sputum Specimen Description SPUTUM Specimen Description Result: Testing performed at [facility];[address] [place] [address]71 AFB STAIN NO ACID FAST BACILLI SEEN AFB STAIN Result: Testing performed at [facility], [address] [place] [address]361 CULTURE NO GROWTH AT THIS TIME CULTURE Result: Testing performed at [facility], [address] [place] [address] 41337 REPORT STATUS PENDING Urine culture [[id number]] (Abnormal) Collected:04/07/12 1336 Order Status:Completed Updated:04/09/12 135 Specimen Information:Urine Specimen Description URINE, COLLECTION NOT GIVEN Specimen Description Result: Testing performed at [facility];[address] [place] [address] 43186 CULTURE >100,000 CFU/ML STAPHYLOCOCCUS AUREUS (A) CULTURE Result: Testing performed at [facility], [address] [place] [address] 28038 REPORT STATUS 04/09/2012 FINAL Organism STAPHYLOCOCCUS AUREUS [...] STAPHYLOCOCCUS AUREUS Blood culture, 1 of 2 [[id number]] Collected:04/03/121414 Order Status:Completed Updated:04/09/12701 Specimen Information:Blood Specimen Description BLOOD, PERIPHERAL DRAW Specimen Description Result: Testing performed at [facility];[address] [place] [address] SPECIAL REQUESTS LAC SPECIAL REQUESTS Result: Testing performed at [facility];[address] [place] [address] 22617 CULTURE NO GROWTH IN 5 DAYS. CULTURE Result: Testing performed at [facility];[address] [place] [address] 84421 REPORT STATUS 04/09/2012 FINAL Blood culture, 2 of 2 [[id number]] Collected:04/03/12 141 Order Status:Completed Updated:04/09/12701 Specimen Information:Blood Specimen Description BLOOD, PERIPHERAL DRAW Specimen Description Result: Testing performed at [facility];[address] [place] [address]184 SPECIAL REQUESTS RAC SPECIAL REQUESTS Result: Testing performed at [facility];[address] [place] [address] 94781 CULTURE NO GROWTH IN 5 DAYS. CULTURE Result: Testing performed at [facility];[address] [place] [address] 87844 REPORT STATUS 04/09/2012 FINAL Urine culture [[id number]] (Abnormal) Collected:04/06/12 0022 Order Status:Completed Updated:04/08/12 1505 Specimen Description URINE, COLLECTION NOT GIVEN Specimen Description Result: Testing performed at [facility];[address] [place] [address] 86129 CULTURE >100,000 CFU/ML STAPHYLOCOCCUS AUREUS (A) CULTURE Result: Testing performed at [facility], [address] [place] [address]271 REPORT STATUS 04/08/2012 FINAL Organism STAPHYLOCOCCUS AUREUS [...] (TERRANCE) >100,000 CFU/ML STAPHYLOCOCCUS AUREUS Urine Culture [[id number]] Collected:04/02/12228 Order Status:Completed Updated:04/04/121954 Specimen Information:Urine Specimen Description CATHETERIZED URINE Specimen Description Result: Testing performed at [facility];[address] [place] [address] 42647 CULTURE NO GROWTH 2 DAYS CULTURE Result: Testing performed at [facility], [address] [place] [address] 95928 REPORT STATUS 04/04/2012 FINAL Radiology Results (last 7 days) Procedure Component Value Units Date/Time CT upper extremity left w contrast [[id number]] Resulted:04/14/12236 Order Status:Completed Updated:04/14/12237 Narrative: CT LEFT [...] 2012 2:37AM CT abdomen pelvis with contrast [[id number]] Resulted:04/13/122319 Order Status:Completed Updated:04/13/122320 Narrative: CT ABDOMEN [...] 2012 11:20PM Ultrasound doppler venous arm left [[id number]] Collected:04/11/121900 Order Status:Completed Updated:04/11/121909 Narrative: CAROLDIANELYS POTTER [...] vein thrombosis. Ultrasound doppler venous arm right [[id number]] Collected:04/10/12 2306 Order Status:Completed Updated:04/10/122318 Narrative: CAROL [...] at 04/10/2012 11:11 PM. needle biopsy kidney [[id number]] Collected:04/10/124 Order Status:Completed Updated:04/10/121733 Narrative: HISTORY: Renal [...] Date of Service: 04/14/12 1002 Status: Signed Fingerprint Clerk: Cosmo Soria MD (Physician) PCP is Ashly [...] Left UE PICC line in situ. CASE: [id number] PATIENT: CAROL POTTER Surgical Pathology Report PATHOLOGIC [...] be set up for maintenance HD at [place] under Dr. Timmons. BP: Better controlled. However [...] 04/14/12843 Date of Service: 04/14/12842 Status: Signed Fingerprint Clerk: Khadra Venegas RD, CDE (Forestry Support Specialist) Elevated post prandial blood sugars. Recommend: Consider starting on 2 units of Novolog r outine with meals. Khadra Venegas RD, MPH, CDE, Forestry Support Specialist 04/14/2012 8:44 AM Favio Blackburn MD - 04/14/2012 7:45 AM PDTFormatting of this note might be different f rom the original. Progress Notes by Favio Dawkins MD at 04/14/1225 Author: Favio Dawkins MD Service: Hospitalist Author Type: Physician Filed: 04/14/12 505 Date of Service: 04/14/12744 Status: Signed Fingerprint Clerk: Favio Dawkins MD (Physician) [facility] Service: Hospitalist Progress Note Hospital Day: LOS: [...] blood transfusion, who presented by ambulance from [facility]. Was there at 04/01 at 2100 [...] skin eruption skin biopsy awaiting report From [facility] to call Dr. Dan of [facility] if he does not call you tomorrow Vitamin d deficiency/Secondary hyperparathyroidism (of renal origin) continue weekly ergoc alciferol and 1000 mg calcium orally for Hypocalcemia continue to monitor electrolytes yelena y. Hypothyroidism continue with present Dose of Levothroid Eczema herpeticum? On acyclovir and skin biopsy done Per Dr. Dan of [facility] who I talked to today inflammatory changes seen and he sent slide to [facility] and stains still pending Hos pitlaist taking over should call him tomorrow if Dr. Dan does not call back in AM with re port that he said should be in tomorrow. MSSA Bacteremia recurrent - Yesterday's blood culture no growth after 2 successive positiv e cultures as discussed with Dr. Lerner continue ceftriaxone for now may need strategic partnership representative IV ABX like Vancomycin to begiven durng [...] and management as well as Computerized Physician Manager Strategy. Told them somebody else from hospitalist service [...] 04/13/121929 Date of Service: 04/13/121929 Status: Signed Fingerprint Clerk: Juan Lind RN (Registered Nurse) 1415 ~ [...] Notes by Cosmo Soria MD at 04/13/12 8963 Author: Cosmo Soria MD Service: Nephrology Author Type: Physician Filed: 04/13/12 5115 Date of Service: 04/13/12 2264 Status: Signed Fingerprint Clerk: Cosmo Soria MD (Physician) PCP is Ashly [...] Service: (none) Author Type: Physician Filed: 04/13/12 6398 Date of Service: 04/13/12 1026 Status: Signed Fingerprint Clerk: Kisha Tello MD (Physician) [facility] Service: Infectious Disease Progress Note Hospital Day: [...] mg Oral Daily DISCONTD: acyclovir 5 mg/kg ([place]) Intravenous Q24H DISCONTD: DAPTOmycin (CUBICIN) IV 6 [...] PERIPHERAL DRAW Specimen Description Testing performed at [facility];[address] [place] [address];[place] [address] SPECIAL REQUESTS RHAND SPECIAL REQUESTS Testing performed at [facility];[address] [place] [address];[place] [address] GRAM STAIN GRAM POSITIVE COCCI IN CLUSTERS SEEN IN AEROBIC BOTTLE SMEAR RESULTS CALLED T O AND READ BACK BY: DAVID Díaz/P 1921 [employer] GRAM STAIN Testing performed at [facility];[address] [place] [address];[place] [address] CULTURE STAPHYLOCOCCUS AUREUS ISOLATED A CULTURE GROWTH IN ONE OF TWO BOTTLES A CATHETER TIP Specimen Description Testing performed at [facility];[address] [place] [address];[place] [address] CULTURE >15 COLONIES STAPHYLOCOCCUS AUREUS A PROBLEM [...] Service: (none) Author Type: Physician Filed: 04/13/12 7220 Date of Service: 04/13/12815 Status: Addendum Fingerprint Clerk: Favio Dawkins MD (Physician) Related Notes: Original Note by Favio Dawkins MD (Physician) filed at 04/13/12 1768 [facility] Service: Hospitalist Progress Note Hospital Day: LOS: 11 days Patient Summary: who presented by ambulance from [facility]. Was there at 04/01 at 2100 [...] mg Oral Daily DISCONTD: acyclovir 5 mg/kg ([place]) Intravenous Q24H DISCONTD: DAPTOmycin (CUBICIN) IV 6 [...] Wilotn Lentz MD on 04/02/2012 11:58 AM Blood [...] and management as well as Computerized Physician Manager Strategy. Code Status: Full Code Favio Dawkins MD 04/13/20128:16 AM onversion Transaction, Provider Unknown - 04/13/2012 6:37 AM PDTFormatting of this note might be diff erent from the original. Progress Notes by Deidre Hudson RN at 04/13/1237 Author: Deidre Hudson RN Service: (none) Author Type: Registered Nurse Filed: 04/13/12 0639 Date of Service: 04/13/12636 Status: Signed Fingerprint Clerk: Deidre Hudson RN (Registered Nurse) Hospitalist notified [...] 04/13/12232 Date of Service: 04/13/12232 Status: Signed Fingerprint Clerk: Deidre Hudson RN (Registered Nurse) Pt denies pain, sob, or dizziness. Pt states getting rest, feeling better. Pt appears les s anxious, very cooperative. onver quique Transaction, Provider Unknown - 04/13/2012 1:40 AM PDT Progress Notes by Deidre Hudson RN at 04/13/12139 Author: Deidre Hudson RN Service: (none) Author Type: Registered Nurse Filed: 04/13/12145 Date of Service: 04/13/12139 Status: Signed Fingerprint Clerk: Deidre Hudson RN (Registered Nurse) Pt in restroom upon entering room. Pt reminded to use call light for assistance getting ou t of bed. Pt states understanding. onver quique Transaction, Provider Unknown - 04/13/2012 1:00 AM PDT Progress Notes by Deidre Hudson RN at 04/13/1299 Author: Deidre Hudson RN Service: (none) Author Type: Registered Nurse Filed: 04/13/1299 Date of Service: 04/13/1299 Status: Signed Fingerprint Clerk: Deidre Hudson RN (Registered Nurse) Pt resting, does not appear to be in any distress. Will continue to monitor. onver quique Transaction, Provider Unknown - 04/12/2012 9:30 PM PDT Progress Notes by Deidre Hudson RN at 04/12/122129 Author: Deidre Hudson RN Service: (none) Author Type: Registered Nurse Filed: 04/12/122214 Date of Service: 04/12/122129 Status: Signed Fingerprint Clerk: Deidre Hudson RN (Registered Nurse) Spoke to [...] Notes by Cosmo Soria MD at 04/12/12 6397 Author: Cosmo Soria MD Service: Nephrology Author Type: Physician Filed: 04/12/12 1215 Date of Service: 04/12/12 1159 Status: Signed Fingerprint Clerk: Cosmo Soria MD (Physician) PCP is Ashly [...] mg Oral Daily DISCONTD: acyclovir 5 mg/kg ([place]) Intravenous Q24H DISCONTD: DAPTOmycin (CUBICIN) IV 6 [...] In: 4350 [P.O.:1300; Other:2800; IV Piggyback:250] Out: 00762 [Urine:1050; Other:9000; Stool:1] Weight change: -1.7 kg [...] Service: (none) Author Type: Physician Filed: 04/12/12 3458 Date of Service: 04/12/12 1042 Status: Signed Fingerprint Clerk: Kisha Tello MD (Physician) [facility] Service: Infectious Disease Progress Note Hospital Day: [...] mg Oral Daily DISCONTD: acyclovir 5 mg/kg ([place]) Intravenous Q24H DISCONTD: DAPTOmycin (CUBICIN) IV 6 [...] PERIPHERAL DRAW Specimen Description Testing performed at [facility];[address] [place] [address];[place] [address] SPECIAL REQUESTS RHAND SPECIAL REQUESTS Testing performed at [facility];[address] [facility];[place] [address] GRAM STAIN GRAM POSITIVE COCCI IN CLUSTERS SEEN IN AEROBIC BOTTLE SMEAR RESULTS CALLED T O AND READ BACK BY: DAVID Díaz/4RP 1921 JCM A GRAM STAIN Testing performed at [facility];[address] [place] [address];[place] [address] CULTURE STAPHYLOCOCCUS AUREUS ISOLATED A CULTURE GROWTH IN ONE OF TWO BOTTLES A CATHETER TIP Specimen Description Testing performed at [facility];[address] [place] [address];[place] [address] CULTURE >15 COLONIES STAPHYLOCOCCUS AUREUS A PROBLEM [...] 04/13/121639 Date of Service: 04/12/12819 Status: Addendum Fingerprint Clerk: Favio Dawkins MD (Physician) Related Notes: Original Note by Favio Dawkins MD (Physician) filed at 04/12/122019 [facility] Service: Hospitalist Progress Note Hospital Day: LOS: 10 days Patient Summary: who presented by ambulance from [facility]. Was there at 04/01 at 2100 [...] Overnight: none Scheduled Medications acyclovir 5 mg/kg ([place]) Intravenous Q24H amlodipine 10 mg Oral Daily [...] and management as well as Computerized Physician Manager Strategy. Code Status: Full Code Favio Dawkins MD 04/12/20128:20 AM Tammie Lang MD - 04/11/2012 3:34 PM PDTFormatting of this note might be different from the origina l. Progress Notes by Cosmo Soria MD at 04/11/12 3464 Author: Cosmo Soria MD Service: Nephrology Author Type: Physician Filed: 04/11/12 5946 Date of Service: 04/11/128 Status: Signed Fingerprint Clerk: Cosmo Soria MD (Physician) PCP is Ashly [...] antecubital vein. Scheduled Medications acyclovir 5 mg/kg ([place]) Intravenous Q24H amlodipine 10 mg Oral Daily [...] Date of Service: 04/11/12 1500 Status: Signed Fingerprint Clerk: Salima Red RN (Registered Nurse) Dr Tello aware of blood cultures oKathy powell MSW - 04/11/2012 10:33 AM PDT Progress Notes by VANDANA Gonzalez at 04/11/12 1033 Author: VANDANA Gonzalez Service: (none) Author Type: Short Piece Handler Filed: 04/11/12 1034 Date of Service: 04/11/12 1033 Status: Signed Fingerprint Clerk: VANDANA Gonzalez (Short Piece Handler) Patient's spouse reporting patient is set up for dialysis in [facility], with [facility] to tra nsport to appts. Spouse reports the dialysis center is only 4 miles from their home. Kisha Adamson MD - 04/11/2012 9:05 AM PDT Progress Notes by Kisha Tello MD at 04/11/12904 Author: Kisha Tello MD Service: (none) Author Type: Physician Filed: 04/11/12 1517 Date of Service: 04/11/12904 Status: Addendum Fingerprint Clerk: Kisha Tello MD (Physician) Related Notes: Original Note by Kisha Tello MD (Physician) filed at 04/11/12 2171 [facility] Service: Infectious Disease Progress Note Hospital Day: [...] up. . Scheduled Medications acyclovir 5 mg/kg ([place]) Intravenous Q24H amlodipine 10 mg Oral Daily [...] on acyclovir for possibility of eczema herpeticum. [id number] is positive. Would await skin biopsy results [...] 1736 Date of Service: 04/11/12837 Status: Signed Fingerprint Clerk: Favio Dawkins MD (Physician) [facility] Service: Hospitalist Progress Note Hospital Day: LOS: 9 days Patient Summary: who presented by ambulance from [facility]. Was there at 04/01 at 2100 [...] Overnight: none Scheduled Medications acyclovir 5 mg/kg ([place]) Intravenous Q24H amlodipine 10 mg Oral Daily [...] Intake/Output Summary (Last 24 hours) at 04/11/12 0893 Last data filed at 04/11/12 0449 Gross [...] 0004 Date of Service: 04/10/122351 Status: Signed Fingerprint Clerk: Frank Wilson MD (Physician) Partial Note US report from Radiologist received , consistent with: Ultrasound doppler venous arm right [[id number]] Collected:04/10/122305 Order Status:Comple gela Updated:04/10/122318 Narrative: CAROL [...] 04/10/121912 Date of Service: 04/10/121910 Status: Signed Fingerprint Clerk: Nehal Coleman RN (Registered Nurse) Notified Dr. Dawkins of swelling, reddness and warm to touch of L UA IV site. New order s received and implemented. NEHAL COLEMAN RN ostKathy cazares MSW - 04/10/2012 12:38 PM PDT Progress Notes by VANDANA Gonzalez at 04/10/12 1238 Author: VANDANA Gonzalez Service: (none) Author Type: Short Piece Handler Filed: 04/10/12 1239 Date of Service: 04/10/12 1238 Status: Signed Fingerprint Clerk: VANDANA Gonzalez (Short Piece Handler) Pt is new dialysis, acute with Jeanine Glynn arranging chair appt in dialysis center in [facility]. Anticipate dc possibly Saturday. Family to transport. isha Tello MD - 04/10/2012 11:05 AM PDT Progress Notes by Kisha Tello MD at 04/10/12 1105 Author: Kisha Tello MD Service: (none) Author Type: Physician Filed: 04/10/12 4020 Date of Service: 04/10/12 1105 Status: Signed Fingerprint Clerk: Kisha Tello MD (Physician) [facility] Service: Infectious Disease Progress Note Hospital Day: [...] diarrhea . Scheduled Medications acyclovir 5 mg/kg ([place]) Intravenous Q24H albumin human 12.5 g Intravenous [...] on acyclovir for possibility of eczema herpeticum. [id number] is positive. Would await skin biopsy results [...] Progress Notes by Marivel Ocampo at 04/10/12 3290 Author: Marivel Ocampo Service: (none) Author Type: Registered Nurse Filed: 04/10/12 1049 Date of Service: 04/10/12 1313 Status: Signed Fingerprint Clerk: Marivel Ocampo Pt transported back to his [...] Sean Solorzano MD at 04/10/12 1017 Author: Sena Solorzano MD Service: Nephrology Author Type: Physician Filed: 04/10/12 1138 Date of Service: 04/10/12 1017 Status: Signed Fingerprint Clerk: Sean Solorzano MD (Physician) [facility] Service: NEPHROLOGY Progress Note Carol Potter 47 y.o. [id number] male Ashly Quick MD, MD Hospital Day: LOS: 8 days SUBJECTIVE Patient seen and examined. ADMITTED WITH Renal failure, acute [place] ADMITTED WITH Renal failure, acute ASSOCIATED WITH FLUID ELECTROLYTE ACID BASE ABNORMALITIES HISTORY OF PRESENT ILLNESS The patient is a 47 y.o. male with significant past medical history of DYSLIPIDEMIA, HYPERTENSION, DM II, ASTHMA, ANEMIA, GOUT, who presented by ambulance from [facility]. Was there at 04/01 at 2100 [...] HERE HAPPILY FOR 22 YEARS, LIVES in [place] AT HOME WITH , 04/09/2012; Pt C/O [...] WITH [employer]; KIDSUNEMPLOYED BEFORE WORKED AT [employer] IN [place] [employer] [place] [employer] NONE ETOH QUIT 15 YEARS AGODRUGS: USES METHAMPHETAMINES PER PATIENTF ATHER HAS COLON CANCER, HEART DISEASEMOTHER 15 YEARS AGONO FH KIDNEY PROBLEMS. History reviewed. No pertinent family history. Scheduled Medications acyclovir 5 mg/kg ([place]) Intravenous Q24H albumin human 12.5 g Intravenous [...] [facility] UNDER DR TIMMONS Time [...] 04/10/122032 Date of Service: 04/10/12819 Status: Signed Fingerprint Clerk: Favio Dawkins MD (Physician) [facility] Service: Hospitalist Progress Note Hospital Day: LOS: 8 days Patient Summary: who presented by ambulance from [facility] Was there at 04/01 at 2100 [...] Overnight: none Scheduled Medications acyclovir 5 mg/kg ([place]) Intravenous Q24H albumin human 12.5 g Intravenous [...] 04/09/122241 Date of Service: 04/09/121801 Status: Signed Fingerprint Clerk: Sean Solorzano MD (Physician) [facility] Service: NEPHROLOGY Progress Note Carol Potter 47 y.o. [id number] male Ashly Quick MD, MD Hospital Day: LOS: 7 days SUBJECTIVE Patient seen and examined. ADMITTED WITH Renal failure, acute [place] ADMITTED WITH Renal failure, acute ASSOCIATED WITH [...] HERE HAPPILY FOR 22 YEARS, LIVES in [place] AT HOME WITH , Pt C/O SOB [...] WITH [employer]; KIDSUNEMPLOYED BEFORE WORKED AT [employer] [place] [employer] NONE ETOH QUIT 15 YEARS AGODRUGS: USES METHAMPHETAMINES PER PATIENTF ATHER HAS COLON CANCER, HEART DISEASEMOTHER 15 YEARS AGONO FH KIDNEY PROBLEMS. History reviewed. No pertinent family history. Scheduled Medications acyclovir 5 mg/kg ([place]) Intravenous Q24H amlodipine 10 mg Oral Daily [...] [facility] UNDER DR TIMMONS Time [...] 04/09/12835 Date of Service: 04/09/12835 Status: Signed Fingerprint Clerk: Khadra Venegas RD, SINDY (Forestry Support Specialist) Elevated blood sugars yesterday after last dose of steroids. Recommend: Consider increasi ng to high dose correctional scale insulin. Khadra Venegas RD, MPH, CDE, Forestry Support Specialist 8:36 AM Lawson aguilar, Favio Willoughby MD - 04/09/2012 8:10 AM PDTFormatting of this note might be different f rom the original. Progress Notes by Favio Dawkins MD at 04/09/12809 Author: Favio Dawkins MD Service: (none) Author Type: Physician Filed: 04/09/121814 Date of Service: 04/09/12809 Status: Signed Fingerprint Clerk: Favio Dawkins MD (Physician) [facility] Service: Hospitalist Progress Note Hospital Day: LOS: 7 days Patient Summary: who presented by ambulance from [facility]. Was there at 04/01 at 2100 [...] Overnight: none Scheduled Medications acyclovir 5 mg/kg ([place]) Intravenous Q24H amlodipine 10 mg Oral Daily [...] Dawkins MD 04/09/20128:10 AM oster, Cat hrbrittney, FARM OPERATOR - 04/08/2012 3:44 PM PDTFormatting of this note might be different from the origi nal. Progress Notes by VANDANA Gonzalez at 04/08/12 1544 Author: VANDANA Gonzalez Service: (none) Author Type: Short Piece Handler Filed: 04/08/12 1545 Date of Service: 04/08/12 154 Status: Signed Fingerprint Clerk: VANDANA Gonzalez (Short Piece Handler) At patient's consent and request CM confirmed to Ced at [facility] that patient continued to be hospitalized on [...] Date of Service: 04/08/12 152 Status: Signed Fingerprint Clerk: Khadra Venegas RD, CDE (Forestry Support Specialist) Pt with elevated blood sugars d/t high dose steroids. Steroids stopped today. Anticipate blood sugars to normalize as HbA1c is within a normal range. Will continue to follow for bl ood sugars. Khadra Venegas RD, MPH, CDE, Forestry Support Specialist 04/08/2012 3:27 PM Sean Willis T - 04/08/2012 2:33 PM PDTFormatting of this note might be different from the origi nal. Progress Notes by Sean Solozrano MD at 04/08/12 1433 Author: Sean Solorzano MD Service: Nephrology Author Type: Physician Filed: 04/08/12 1702 Date of Service: 04/08/12 1433 Status: Signed Fingerprint Clerk: Sean Solorzano MD (Physician) [facility] Service: NEPHROLOGY Progress Note Carol Potter 47 y.o. [id number] male Ashly Quick MD, MD Hospital Day: LOS: 6 days SUBJECTIVE Patient seen and examined. ADMITTED WITH Renal failure, [facility] ADMITTED WITH Renal failure, acute ASSOCIATED WITH FLUID ELECTROLYTE ACID BASE ABNORMALITIES HISTORY OF PRESENT ILLNESS The patient is a 47 y.o. male with significant past medical history of DYSLIPIDEMIA, HYPERTENSION, DM II, ASTHMA, ANEMIA, GOUT, who presented by ambulance from [facility]. Was there at 04/01 at 2100 [...] HERE HAPPILY FOR 22 YEARS, LIVES in [place] AT HOME WITH , Past Medical History [...] WITH [employer]; KIDSUNEMPLOYED BEFORE WORKED AT [employer] IN [employer] NONE ETOH QUIT 15 YEARS AGODRUGS: USES METHAMPHETAMINES PER PATIENTF ATHER HAS COLON CANCER, HEART DISEASEMOTHER 15 YEARS AGONO FH KIDNEY PROBLEMS. History reviewed. No pertinent family history. Scheduled Medications acyclovir 5 mg/kg ([place]) Intravenous Q24H amlodipine 10 mg Oral Daily [...] 1701 Date of Service: 04/08/121 Status: Signed Fingerprint Clerk: Kisha Tello MD (Physician) [facility] Service: Infectious Disease Progress Note Hospital Day: [...] bleeding. . Scheduled Medications acyclovir 5 mg/kg ([place]) Intravenous Q24H amlodipine 10 mg Oral Daily [...] Notes by Favio Dawkins MD at 04/08/12 0815 Author: Favio Dawkins MD Service: Hospitalist Author Type: Physician Filed: 04/08/12 7982 Date of Service: 04/08/12846 Status: Signed Fingerprint Clerk: Favio Dawkins MD (Physician) [facility] Service: Hospitalist Progress Note Hospital Day: LOS: 6 days Patient Summary: who presented by ambulance from [facility] Was there at 04/01 at 2100 [...] Overnight: none Scheduled Medications acyclovir 5 mg/kg ([place]) Intravenous Q24H amlodipine 10 mg Oral Daily [...] Service: Nephrology Author Type: Physician Filed: 04/07/12 1722 Date of Service: 04/07/121451 Status: Signed Fingerprint Clerk: Sean Solorzano MD (Physician) [facility] Service: NEPHROLOGY Progress Note Carol Potter 47 y.o. [id number] male Ashly Quick MD, MD Hospital Day: LOS: 5 days SUBJECTIVE Patient seen and examined. YAKIMA VENETIE ADMITTED WITH Renal failure, acute ASSOCIATED WITH FLUID ELECTROLYTE ACID BASE ABNORMALITIES HISTORY OF PRESENT ILLNESS The patient is a 47 y.o. male with significant past medical history of DYSLIPIDEMIA, HYPERTENSION, DM II, ASTHMA, ANEMIA, GOUT, who presented by ambulance from [facility]. Was there at 04/01 at 2100 [...] HERE HAPPILY FOR 22 YEARS, LIVES in [place] AT HOME WITH , Past Medical History [...] WITH [employer]; KIDSUNEMPLOYED BEFORE WORKED AT [employer] IN [employer] NONE ETOH QUIT 15 YEARS AGODRUGS: USES METHAMPHETAMINES PER PATIENTF ATHER HAS COLON CANCER, HEART DISEASEMOTHER 15 YEARS AGONO FH KIDNEY PROBLEMS. History reviewed. No pertinent family history. Scheduled Medications acyclovir 5 mg/kg ([place]) Intravenous Q24H amlodipine 10 mg Oral Daily [...] Date of Service: 04/07/12 1141 Status: Signed Fingerprint Clerk: Janene Wheeler DO (Physician) [facility] Service: Hospitalist Progress Note Hospital Day: LOS: 5 days Addendum Urine culture positive for S. Aureus, susceptibilities pending. ID following. Janene Ryan DO - 03/24 11:22 AM PDT Progress Notes by Janene Wheeler DO at 04/07/12 1122 Author: Janene Wheeler DO Service: Hospitalist Author Type: Physician Filed: 04/07/12 1140 Date of Service: 04/07/12 1122 Status: Signed Fingerprint Clerk: Janene Wheeler DO (Physician) [facility] Service: Hospitalist Progress Note Hospital Day: LOS: 5 days Patient Summary: who presented by ambulance from [facility]. Was there at 04/01 at 2100 [...] Overnight: none Scheduled Medications acyclovir 5 mg/kg ([place]) Intravenous Q24H amlodipine 10 mg Oral Daily [...] Code JANENE WHEELER DO 04/07/201211:27 AM OSuKisha godo MD - 04/07/2012 10:24 AM PDT Progress Notes by Kisha Tello MD at 04/07/12 1024 Author: Kisha Tello MD Service: (none) Author Type: Physician Filed: 04/07/12 1420 Date of Service: 04/07/12 1024 Status: Signed Fingerprint Clerk: Kisha Tello MD (Physician) [facility] Service: Infectious Disease Progress Note Hospital Day: [...] chills . Scheduled Medications acyclovir 5 mg/kg ([place]) Intravenous Q24H amlodipine 10 mg Oral Daily [...] 04/06/122011 Date of Service: 04/06/122010 Status: Signed Fingerprint Clerk: Olivia Alvarenga RN (Registered Nurse) SBAR report given to Adam Beverly. All questions stated to be asked and answered. Transfer o f care complete. Edith Wilson MD - 04/06/2012 5:08 PM PDTFormatting of this note might be different from the o riginal. Progress Notes by Edith Díaz MD at 04/06/12 0688 Author: Edith Díaz MD Service: (none) Author Type: Physician Filed: 04/07/12 5869 Date of Service: 04/06/121707 Status: Signed Fingerprint Clerk: Edith Díaz MD (Physician) [facility] Service: Hospitalist Progress Note Hospital Day: LOS: 4 days Post-Op Day: * No surgery found * SUBJECTIVE Patient Summary: who presented by ambulance from [facility]. Was there at 04/01 at 2 [...] Overnight: No further ventricular tachycardia on the monitoring specialist. Hemodynamically stable. No further epistaxis. Denies any [...] lesions noted. Scheduled Medications acyclovir 5 mg/kg ([place]) Intravenous Q24H amlodipine 10 mg Oral Daily [...] Notes by Kisha Tello MD at 04/06/12 6381 Author: Kisha Tello MD Service: (none) Author Type: Physician Filed: 04/06/12 3080 Date of Service: 04/06/12 6793 Status: Signed Fingerprint Clerk: Kisha Tello MD (Physician) [facility] Service: Infectious Disease Progress Note Hospital Day: [...] Notes by Juan Timmons MD at 04/06/12 1054 Author: Juan Timmons MD Service: Nephrology Author Type: Physician Filed: 04/10/12 1122 Date of Service: 04/06/12 1059 Status: Signed Fingerprint Clerk: uJan Timmons MD (Physician) [facility] Service: NEPHROLOGY PROGRESS Note Carol Potter 47 y.o. [id number] male Ashly Quick MD, MD Hospital Day: LOS: 4 days Date of Admission: 04/06/2012 HISTORY OF PRESENT ILLNESS The patient is a 47 y.o. male with significant past medical history of Past Medical History Diagnosis Date Hyperlipidemia Hypertension Diabetes mellitus type II Asthma Thyroid disease Anemia who presented by ambulance from [facility]. Was there at 04/01 at 2100 [...] WITH [employer]; KIDSUNEMPLOYED BEFORE WORKED AT [employer] IN [employer] NONE ETOH QUIT 15 YEARS AGODRUGS: USES [...] WITH [employer]; KIDSUNEMPLOYED BEFORE WORKED AT [employer] IN [employer] NONE ETOH QUIT 15 YEARS AGODRUGS: USES [...] Service: Nephrology Author Type: Physician Filed: 04/05/12 0910 Date of Service: 04/05/121119 Status: Signed Fingerprint Clerk: Juan Timmons MD (Physician) [facility] Service: NEPHROLOGY PROGRESS Note Carol Potter 47 y.o. [id number] [phone] male Ashly Quick MD, MD Hospital Day: LOS: 3 days Date of Admission: 04/05/2012 HISTORY OF PRESENT ILLNESS The patient is a 47 y.o. male with significant past medical history of Past Medical History Diagnosis Date Hyperlipidemia Hypertension Diabetes mellitus type II Asthma Thyroid disease Anemia who presented by ambulance from [facility]. Was there at 04/01 at 2100 [...] WITH [employer]; KIDSUNEMPLOYED BEFORE WORKED AT [employer] [place] [employer] NONE ETOH QUIT 15 YEARS AGODRUGS: USES [...] WITH [employer]; KIDSUNEMPLOYED BEFORE WORKED AT [employer] [place] [employer] NONE ETOH QUIT 15 YEARS AGODRUGS: USES [...] 1045 Date of Service: 04/05/12935 Status: Signed Fingerprint Clerk: Trevor Escobar DO (Physician) [facility] Service: Infectious Disease Progress Note Hospital Day: [...] 04/05/12825 Date of Service: 04/05/12819 Status: Signed Fingerprint Clerk: Janene Wheeler DO (Physician) [facility] Service: Hospitalist Progress Note Addendum Patient had [...] 04/05/1237 Date of Service: 04/05/12710 Status: Signed Fingerprint Clerk: Janene Wheeler DO (Physician) [facility] Service: Hospitalist Progress Note Hospital Day: LOS: 3 days Patient Summary: who presented by ambulance from [facility] Was there at 04/01 at 2100 [...] hours No results found for this basename: PHART:3,PO2ART:3,PSZ3MGG:3,W0DBQNXI:3,BEART:[address] 168 hours Lab [...] 04/04/121811 Date of Service: 04/04/121803 Status: Signed Fingerprint Clerk: Juan Timmons MD (Physician) [facility] Service: NEPHROLOGY PROGRESS Note Carol Potter 47 y.o. [id number] [phone] male Ashly Quick MD, MD Hospital Day: LOS: 2 days Date of Admission: 04/04/2012 HISTORY OF PRESENT ILLNESS The patient is a 47 y.o. male with significant past medical history of Past Medical History Diagnosis Date Hyperlipidemia Hypertension Diabetes mellitus type II Asthma Thyroid disease Anemia who presented by ambulance from [facility]. Was there at 04/01 at 2100 [...] WITH [employer]; KIDSUNEMPLOYED BEFORE WORKED AT [employer] IN [employer] NONE ETOH QUIT 15 YEARS AGODRUGS: USES [...] WITH [employer]; KIDSUNEMPLOYED BEFORE WORKED AT [employer] [place] [employer] NONE ETOH QUIT 15 YEARS AGODRUGS: USES [...] Author: VANDANA Gonzalez Service: (none) Author Type: Short Piece Handler Filed: 04/04/121653 Date of Service: 04/04/121652 Status: Signed Fingerprint Clerk: VANDANA Gonzalez (Short Piece Handler) CM provided patient's family members two meal vouchers, an adult and a teenager. Pt has In [facility], with family to transport upon discharge. anene Wheeler DO - 04/04/2012 2:59 PM PDT Progress Notes by Janene Wheeler DO at 04/04/12 160 Author: Janene Wheeler DO Service: Hospitalist Author Type: Physician Filed: 04/04/12 0500 Date of Service: 04/04/121458 Status: Signed Fingerprint Clerk: Janene Wheeler DO (Physician) [facility] Service: Hospitalist Progress Note Hospital Day: LOS: 2 days Patient Summary: who presented by ambulance from [facility]. Was there at 04/01 at 2100 [...] hours No results found for this basename: PHART:3,PO2ART:3,XKI4PFY:3,V9FUDSVW:3,BEART:[address] 168 hours Lab [...] 04/04/12946 Date of Service: 04/04/12940 Status: Signed Fingerprint Clerk: Trevor Escobar DO (Physician) [facility] Service: Infectious Disease Progress Note Hospital Day: [...] Progress Notes by VANDANA Gonzalez at 04/03/12 7567 Author: VANDANA Gonzalez Service: (none) Author Type: Short Piece Handler Filed: 04/03/12 6645 Date of Service: 04/03/12 438 Status: Signed Fingerprint Clerk: VANDANA Gonzalez (Short Piece Handler) faxed proof of admission with patient's signed consent to release medical information in hard chart to [facility] [employer]. Sister Margarita had requested so she could apply for gas voucher to visit her brother. Juan Farrar - 04/03/2012 11:49 AM PDT Progress Notes by Juan Timmons MD at 04/03/12 2956 Author: Juan Timmons MD Service: Nephrology Author Type: Physician Filed: 04/03/12 2236 Date of Service: 04/03/121148 Status: Signed Fingerprint Clerk: Juan Timmons MD (Physician) [facility] Service: NEPHROLOGY PROGRESS Note Carol Potter 47 y.o. [id number] [phone] male Ashly Quick MD, MD Hospital Day: LOS: 1 day Date of Admission: 04/03/2012 HISTORY OF PRESENT ILLNESS The patient is a 47 y.o. male with significant past medical history of Past Medical History Diagnosis Date Hyperlipidemia Hypertension Diabetes mellitus type II Asthma Thyroid disease Anemia who presented by ambulance from [facility]. Was there at 04/01 at 2100 [...] WITH [employer]; KIDSUNEMPLOYED BEFORE WORKED AT [employer] IN [employer] NONE ETOH QUIT 15 YEARS AGODRUGS: [...] WITH [employer]; KIDSUNEMPLOYED BEFORE WORKED AT [employer] IN [employer] NONE ETOH QUIT 15 YEARS AGODRUGS: USES [...] 1413 Date of Service: 04/03/12831 Status: Signed Fingerprint Clerk: Adeola Crabtree MD (Physician) [facility] Service: Hospitalist Progress Note Hospital Day: LOS: 1 day SUBJECTIVE Patient Summary: 47 yo male who presented by ambulance from [facility] Was there at 04/01 at 2100 [...] Procedure Component Value Units Date/Time Urine Culture [[id number]] Collected:04/02/12228 Specimen Information:Urine Updated:04/03/12 132 Specimen Description CATHETERIZED URINE Specimen Description Result: Testing performed at [facility];[address] [place] [address] CULTURE NO GROWTH 1 DAY CULTURE Result: Testing performed at [address] [address] REPORT STATUS PENDING Results Procedure Component Value Units Date/Time Urine Culture [[id number]] Collected:04/02/12228 Specimen Information:Urine Updated:04/03/12 132 Specimen Description CATHETERIZED URINE Specimen Description Result: Testing performed at [facility];[address] [place] [address] CULTURE NO GROWTH 1 DAY CULTURE Result: Testing performed at [address] [address] REPORT STATUS PENDING Urine eosinophils [[id number]] Collected:04/02/12 1530 URINE EOSINOPHILS NO EOSINOPHILS SEEN % Updated:04/03/12 1315 Type and Cross [[id number]] Collected:04/02/12 0125 Specimen Information:Blood Updated:04/03/12 1309 ARM BAND NUMBER [id number] ARM BAND NUMBER Result: Testing performed at [facility];[address] [place] [address];[place] [address] ABO/RH(D) O POSITIVE ABO/RH(D) Result: Testing performed at [facility];[address] [place] [address];[place] [address] ANTIBODY SCREEN NEGATIVE ANTIBODY SCREEN Result: Testing performed at [facility];[address] [place] [address];[place] [address] UNIT NUMBER [id number] BLOOD COMPONENT TYPE LEUKODEPLETED PC UNIT DIVISION 00 STATUS OF UNIT ISSUED,FINAL TRANSFUSION STATUS OK TO TRANSFUSE CROSSMATCH RESULT COMPATIBLE UNIT NUMBER [id number] BLOOD COMPONENT TYPE LEUKODEPLETED PC UNIT DIVISION 00 STATUS OF UNIT ISSUED,FINAL TRANSFUSION STATUS OK TO TRANSFUSE CROSSMATCH RESULT COMPATIBLE UNIT NUMBER [id number] BLOOD COMPONENT TYPE LEUKODEPLETED PC UNIT DIVISION 00 STATUS OF UNIT ALLOCATED TRANSFUSION STATUS OK TO TRANSFUSE CROSSMATCH RESULT COMPATIBLE UNIT NUMBER [id number] BLOOD COMPONENT TYPE LEUKODEPLETED PC UNIT DIVISION 00 STATUS OF UNIT ALLOCATED TRANSFUSION STATUS OK TO TRANSFUSE CROSSMATCH RESULT COMPATIBLE Hemoglobin and hematocrit [[id number]] Collected:04/03/12 1215 Updated:04/03/12 1223 Protein electrophoresis [[id number]] (Abnormal) Collected:04/02/12 1126 Specimen Information:Blood Updated:04/03/12 1135 [...] SPEP Interpretation SEE BELOW Treponema pallidum reflex [[id number]] Collected:04/02/12 1126 TREP PALLIDUM BY EIA NEGATIVE Updated:04/03/12 0951 Hemoglobin and hematocrit [[id number]] (Abnormal) Collected:04/03/12 0922 HGB 7.9 (L) g/dL Updated:04/03/12 0935 HCT 23.1 (L) % PTH, intact and calcium [[id number]] (Abnormal) Collected:04/02/121125 Specimen Information:Blood Updated:04/03/12926 CALCIUM 6.1 (L) mg/dL PTH,INTACT 255 (H) pg/mL Free T4 [[id number]] (Abnormal) Collected:04/03/12504 FREE T4 0.6 (L) ng/dL Updated:04/03/12902 CPK [[id number]] (Abnormal) Collected:04/03/12504 CPK 1219 (H) U/L Updated:04/03/12902 Glycohemoglobin A1c [[id number]] (Abnormal) Collected:04/03/12504 Specimen Information:Blood Updated:04/03/12711 HEMOGLOBIN A1C 5.4 % ESTIMATED AVG GLUCOSE 108 (H) mg/dL Comprehensive metabolic panel [[id number]] (Abnormal) Collected:04/03/12504 Specimen Information:Blood Updated:04/03/12638 SODIUM 134 [...] 25 U/L EGFR 4 (L) mL/min/1.73m2 Magnesium [[id number]] Collected:04/03/12504 Specimen Information:Blood Updated:04/03/12638 MAGNESIUM 2.1 mg/dL Phosphorus [[id number]] (Abnormal) Collected:04/03/12504 Specimen Information:Blood Updated:04/03/12638 PHOSPHORUS 9.8 (HH) mg/dL TSH [[id number]] (Abnormal) Collected:04/03/12504 Specimen Information:Blood Updated:04/03/12638 TSH 16.60 (H) uIU/mL aPTT [[id number]] (Abnormal) Collected:04/03/12504 Specimen Information:Blood Updated:04/03/12627 APTT 36 (H) seconds Protime-INR [[id number]] Collected:04/03/12504 Specimen Information:Blood Updated:04/03/12627 INR 1.3 CBC w/auto diff (reflex to manual) [[id number]] (Abnormal) Collected:04/03/12 0505 Specimen Information:Blood Updated:04/03/12617 WBC [...] 1.4 (H) K/uL BASOPHILS ABS 0.0 K/uL Thurman/Lambda LC RATI [[id number]] Collected:04/02/12 112 Thurman 875 mg/dL Updated:04/03/12 0449 Lambda 463 mg/dL RASHID/LAMBDA RATIO 1.89 Sodium, urine, random [[id number]] (Abnormal) Collected:04/02/12 1530 Specimen Information:Urine Updated:04/02/12 1712 UR SODIUM,RANDOM 46 (L) mmol/L HGB and HCT [[id number]] (Abnormal) Collected:04/02/12 1643 HGB 8.5 (L) g/dL Updated:04/02/12 1705 HCT 25.0 (L) % Hepatitis panel, chronic [[id number]] (Abnormal) Collected:04/02/12 1126 Hep A Total Ab REACTIVE (A) Updated:04/02/12 1644 HEP B SURFACE AG NON REACTIVE HEP B CORE AB,TOTAL NON REACTIVE HEP B SURFACE ANTIBODY <0.50 IV HEPATITIS C NON REACTIVE HEPATITIS INTERP Result: Current or past HAV infection. No serologic evidence of HCV infection or HBV infection or vaccination. Vitamin D,25 hydroxy [[id number]] (Abnormal) Collected:10/04/04 1126 Specimen Information:Blood Updated:04/02/12 1603 VITAMIN D,25 HYDROXY <12 (L) ng/mL RA titer [[id number]] Collected:04/02/121125 Specimen Information:Blood Updated:04/02/12 1555 RA TITER <10 IU/mL CBC w/auto diff (reflex to manual) [[id number]] (Abnormal) Collected:04/02/121125 Specimen Information:Blood Updated:04/02/12 1236 WBC [...] K/uL BASOPHILS ABS 0.0 K/uL HIV rapid [[id number]] Collected:04/02/121125 HIV RAPID NON REACTIVE Updated:04/02/12 1227 Magnesium [[id number]] Collected:04/02/121125 Specimen Information:Blood Updated:04/02/12 1226 MAGNESIUM 2.3 mg/dL Phosphorus [[id number]] (Abnormal) Collected:04/02/121125 Specimen Information:Blood Updated:04/02/12 1226 PHOSPHORUS 11.8 (HH) mg/dL Uric acid [[id number]] Collected:04/02/121125 Specimen Information:Blood Updated:04/02/12 1226 URIC ACID 8.2 mg/dL CPK [[id number]] (Abnormal) Collected:04/02/121125 Specimen Information:Blood Updated:04/02/12 122 CPK 1373 (H) U/L Iron panel [[id number]] (Abnormal) Collected:04/02/121125 Specimen Information:Blood Updated:04/02/12 1226 IRON 55 ug/dL TIBC 144.00 (L) ug/dL IRON % SAT 38 % Ferritin [[id number]] Collected:04/02/121125 Specimen Information:Blood Updated:04/02/12 122 FERRITIN 139 ng/mL C-reactive protein [[id number]] (Abnormal) Collected:04/02/121125 CRP 15.0 (H) mg/dL Updated:04/02/121225 Comprehensive metabolic panel [[id number]] (Abnormal) Collected:04/02/121125 Specimen Information:Blood Updated:04/02/121225 SODIUM 137 [...] 4 (L) mL/min/1.73m2 C3 and C4 complement [[id number]] Collected:04/02/121125 COMPLEMENT C3 94 mg/dL Updated:04/02/121225 COMPLEMENT C4 16.3 mg/dL Sedimentation rate, automated [[id number]] (Abnormal) Collected:04/02/121125 Specimen Information:Blood Updated:04/02/121223 ESR 52 (H) mm/Hr ANCA panel(reflexive) [[id number]] Collected:04/02/121125 Specimen Information:Blood Updated:04/02/121133 Glomerular basement membrane Ab [[id number]] Collected:04/02/121125 Specimen Information:Blood Updated:04/02/12 113 POCT glucose [[id number]] Collected:04/02/12 0125 GLUCOSE,POC SCREEN 67 mg/dL Updated:04/02/12433 POCT glucose [[id number]] (Abnormal) Collected:04/02/12 0214 GLUCOSE,POC SCREEN 110 (H) mg/dL Updated:04/02/12 043 POCT glucose [[id number]] Collected:04/02/12255 GLUCOSE,POC SCREEN 95 mg/dL Updated:04/02/12433 POCT glucose [[id number]] (Abnormal) Collected:04/02/12 040 GLUCOSE,POC SCREEN 102 (H) mg/dL Updated:04/02/12433 POCT glucose [[id number]] (Abnormal) Collected:04/02/12 0031 GLUCOSE,POC SCREEN 29 (LL) mg/dL Updated:04/02/12433 Salicylate (Aspirin) Level [[id number]] (Abnormal) Collected:04/02/12231 Specimen Information:Blood Updated:04/02/12311 SALICYLATE 2.6 (L) mg/dL Urine Drug Screen [[id number]] (Abnormal) Collected:04/02/12228 Specimen Information:Urine Updated:04/02/12250 AMPHETAMINE POSITIVE (A) OPIATES NEGATIVE BARBITUATES NEGATIVE PCP NEGATIVE BENZODIAZEPINE NEGATIVE THC NEGATIVE COCAINE NEGATIVE TRICYCLIC ANTIDEPRESS NEGATIVE ACETAMINOPHEN/PARACET POSITIVE (A) METHAMPHETAMINES POSITIVE (A) METHADONE NEGATIVE Urine Microscopic [[id number]] (Abnormal) Collected:04/02/12228 Specimen Information:Urine Updated:04/02/12250 WBC 6-10 /hpf RBC 16-25 /hpf EPITHELIAL 6-10 /lpf BACTERIA TRACE (A) Mucus, UA 1+ Crystals 3+ /hpf Carbamazepine [[id number]] (Abnormal) Collected:04/02/1239 DATE OF LAST DOSE UNKNOWN Updated:04/02/12229 TIME OF LAST DOSE UNKNOWN CARBAMAZEPINE LEVEL <0.5 (L) ug/mL POC arterial CG4+ [[id number]] (Abnormal) Collected:04/02/12 020 pH, Art 7.148 (LL) Updated:04/02/12211 POC PCO2 23 (L) mmHg POC p02 171 (H) mmHg POC LACTATE 0.6 mmol/L POC HCO3 8 (L) mmol/L POC TCO2 9 (L) mEq/L POC BASE DEFICIT 21 (H) mmol/L POC S02 99 (H) % POC FIO2 32 % Cardiac Panel [[id number]] (Abnormal) Collected:04/02/1239 WBC 9.7 K/uL Updated:04/02/12125 RBC [...] Date of Service: 04/02/12 1023 Status: Signed Fingerprint Clerk: Erin Angel RD (Forestry Support Specialist) Pt on droplet precautions. Attempted to visit [...] later today. Erin Angel RD, CD, Inpatient Forestry Support Specialist 04/02/2012 10:26 AM onversion Transaction , Provider Unknown - 04/02/2012 8:45 AM PDT Progress Notes by Gianna Ann RPH at 04/02/12844 Author: Gianna Ann RPH Service: (none) Author Type: Pharmacist Filed: 04/02/12844 Date of Service: 04/02/12844 Status: Signed Fingerprint Clerk: Gianna Ann RPH (Pharmacist) Renal Dosing Monitoring: [...] Service: Hospitalist Author Type: Physician Filed: 04/02/12 6382 Date of Service: 04/02/12812 Status: Addendum Fingerprint Clerk: Adeola Crabtree MD (Physician) Related Notes: Original Note by Adeola Crabtree MD (Physician) filed at 04/02/12 1549 47 yo male who presented by ambulance from [facility]. Was there at 04/01 at 2100 [...] LAB | | Testing performed at [facility];[address] [place] [address];[place] [address] | | + + + + +---------+ [...] LAB | | Testing performed at [facility];[address] | | [employer] [facility];[place] [address] SPECIAL REQUESTS | | | LEFT HAND | | | Testing performed at [facility];[address] [facility];[place] [address] CULTURE | | | NO GROWTH IN 5 DAYS. | | | Testing performed at [facility];[address] | | | [employer] [facility];[place] [address] REPORT STATUS | | | 04/20/2012 FINAL [...] LAB | | Testing performed at [facility];[address] [place] [address];[place] [address] | | + + + + +---------+ [...] 87.47 ml D-E Excursion: 2.04 cm E-F [place]: 0.07 | | | m/s EPSS: 1.21 [...] TV A Lenard: 0.53 m/s TV Dec [place]: 6.33 | | | m/s2 TV Dec Time: 150.03 ms TV E [place]: 0.94 m/s TV E/A Ratio: | | | 1.76 Practical Nursing Instructor: KVW Authenticated by: Giovany Everett MD | [...] (A-L): 40.32 | | ml/m2LAAs A2C: 23.95 dt8KGKTP A-L A2C: 79.86 mlLALs A2C: 6.09 cmLAAs A4C: 25.15 | | [id number] A-L A4C: 85.78 mlLALs A4C: 6.26 cmAo Diam: 3.79 cmAV Cusp: 2.35 cmLA | | Diam: 5.00 cmLA/Ao: 1.31%FS: 27.35 %EDV(Teich): 166.76 mlEF(Teich): 52.45 | | %ESV(Teich): 79.28 mlIVSd: 1.28 cmIVSs: 1.43 cmLVIDd: 5.80 cmLVIDs: 4.21 | | cmLVPWd: 1.38 cmLVPWs: 1.48 cmSV(Teich): 87.47 mlD-E Excursion: 2.04 cmE-F | | [place]: 0.07 m/sEPSS: 1.21 cmHR: 66.51 BPMAV maxP.54 mmHgAV meanP.02 | | mmHgAV Vmax: 1.46 m/[place] Vmean: 1.07 m/[place] VTI: 30.65 cmAVA Vmax: 3.14 cm2AVA | | (VTI): 3.18 uj2VDMF Dopp: 3.15 l/awkd8OMIE Dopp: 6.56 l/minHR: 67.34 BPMLVOT | | [...] | | VTI: 25.98 cmMVA (VTI): 3.75 ve1Lztitl e': 0.06 m/sSeptal E/e': 19.82Lateral e': | [...] A Lenard: 0.53 | | m/sTV Dec [place]: 6.33 m/s2TV Dec Time: 150.03 msTV E Lenard: 0.94 m/sTV E/A Ratio: | | 1.76 Practical Nursing Instructor: KVWAuthenticated by: Giovany Everett MDReport Date/Time: 04-13-2012 [...] | |D-E Excursion: 2.04 cm | |E-F [place]: 0.07 m/s | |EPSS: 1.21 cm | [...] A Lenard: 0.53 m/s | |TV Dec [place]: 6.33 m/s2 | |TV Dec Time: 150.03 ms | |TV E Lenard: 0.94 m/s | |TV E/A Ratio: 1.76 | | | |Practical Nursing Instructor: KVW | |Authenticated by: Giovany Everett MD [...] | Testing performed | | | at [facility];[address] [place] [address];[place] [address] SPECIAL REQUESTS | | | L WRIST | | | Testing performed at [facility];[address] [place] [address];[place] [address] | | | CULTURE NO GROWTH IN 5 DAYS. | | | Testing performed | | | at [facility];[address] [place] [address];[place] [address] REPORT STATUS | | | 04/19/2012 FINAL [...] | Testing performed | | | at [facility];[address] [place] [address];[place] [address] SPECIAL REQUESTS | | | L ARM | | | Testing performed at [facility];[address] [place] [address];[place] [address] | | | CULTURE NO GROWTH IN 5 DAYS. | | | Testing | | | performed at [facility];[address] [facility];[place] [address] REPORT STATUS | | | 04/19/2012 FINAL [...] | Testing performed | | | at [facility];[address] [place] [address];[place] [address] SPECIAL REQUESTS | | | L WRIST | | | Testing performed at [facility];[address] [place] [address];[place] [address] | | | GRAM STAIN GRAM POSITIVE [...] Tan ON 4RP AT 1140 ON 04/14/12 [facility] RESULTS REPEATED | | | Testing performed | | | at [facility];[address] [place] [address];[place] [address] CULTURE | | | STAPHYLOCOCCUS AUREUSAbnormal | | | GROWTH IN TWO OF TWO BOTTLESAbnormal | | | TIME TO | | | DETECTION: 0.71 DAYS | | | Testing performed at [facility], [address] [place], [place] | | | [address] REPORT STATUS 04/15/2012 | | | FINAL [...] | Testing performed at | | | [facility];[address] [place] [address];[place] [address] SPECIAL REQUESTS | | | ART | | | Testing performed at [facility];[address] [place] [address];[place] [address] | | | GRAM STAIN GRAM POSITIVE COCCI | | | SEEN ON GRAM STAIN FROM AEROBIC BOTTLE SMEAR RESULTS CALLED TO AND | | | READ BACK BY: DEIDRE Mccullough IN [facility] AT 0611 ON [id number] BY GEM | | | Testing performed at [facility] | | | [facility];[place] [address] CULTURE | | | STAPHYLOCOCCUS AUREUSAbnormal | | | GROWTH IN ONE OF TWO BOTTLESAbnormal | | | TIME TO DETECTION: 0.65 | | | DAYS Testing | | | performed at [facility], [address] [place] [address] | | | REPORT STATUS 04/17/2012 FINAL [...] | Testing performed | | | at [facility];[address] [place] [address];[place] [address] SPECIAL REQUESTS | | | RHAND | | | Testing performed at [facility];[address] [place] [address];[place] [address] | | | GRAM STAIN GRAM POSITIVE COCCI IN | | | CLUSTERS SEEN IN AEROBIC BOTTLE SMEAR RESULTS CALLED TO AND READ BACK | | | BY: DAVID Díaz/[facility] 192 JCMAbnormal | | | GRAM POSITIVE COCCI IN CLUSTERS SEEN ON SMEAR OF | | | ANAEROBIC BOTTLE | | | CALLED TO [place]/DAVID Díaz ON 04/14/12 AT 0657 BY READBACK | | | Testing performed at [facility] | | | [facility];[place] [address] CULTURE | | | STAPHYLOCOCCUS AUREUSAbnormal | | | TIME TO DETECTION: 0.67 DAYS | | | GROWTH IN TWO OF TWO | | | BOTTLESAbnormal | | | VANCOMYCIN TERRANCE IS LESS THAN OR EQUAL TO 0.5 Mcg/mL | | | Testing performed at [facility], [address] | | | [place] [address] REPORT STATUS | | | 04/15/2012 FINAL [...] LAB | | Testing performed at [facility];[address] | | | [facility];[place] [address] CULTURE | | | >15 COLONIES STAPHYLOCOCCUS AUREUSAbnormal | | | THIS S. AUREUS IS SUSCEPTIBLE TO | | | METHICILLINAbnormal | | | Testing performed at [facility], [address] [place], [place] | | | [address] REPORT STATUS 04/12/2012 | | | FINAL [...] SURGEON Oskar Meyer MD | | | BUCKLE SORTER None. ANESTHESIA Local with moderate sedation. | [...] Oskar Meyer MD | | | | BU[place]LE SORTER | | None. | | | | [...] SURGEON Oskar Meyer MD | | | BUCKLE SORTER None. ANESTHESIA Local with moderate sedation. | [...] Oskar Meyer MD | | | | BUCKLE SORTER | | None. | | | | [...] | Testing performed | | | at [facility];[address] [place] [address];[place] [address] SPECIAL REQUESTS | | | RAC | | | Testing performed at [facility];[address] [place] [address];[place] [address] | | | GRAM STAIN GRAM POSITIVE COCCI IN | | | CLUSTERS SEEN ON SMEAR FROM AEROBIC BOTTLEAbnormal | | | SMEAR RESULTS CALLED TO AND READ | | | BACK BY: YAZMIN DUNCAN, 04/10/12 AT 2356 BY | | | Testing performed at [facility];[address] | | | [facility];[place] [address] CULTURE | | | STAPHYLOCOCCUS AUREUSAbnormal | | | GROWTH IN ONE OF TWO BOTTLESAbnormal | | | TIME TO DETECTION: 0.31 DAYS | | | VANCOMYCIN TERRANCE IS | | | EQUAL TO ONE. | | | Testing performed at [facility], [address] [place], [place] | | | [address] REPORT STATUS 04/13/2012 | | | FINAL [...] | Testing performed | | | at [facility];[address] [place] [address];[place] [address] SPECIAL REQUESTS | | | LAC | | | Testing performed at [facility];[address] [place] [address];[place] [address] | | | GRAM STAIN GRAM POSITIVE COCCI | | | SEEN ON GRAM STAIN FROM AEROBIC AND ANAEROBIC BOTTLES SMEAR RESULTS | | | CALLED TO AND READ BACK BY: LINDA Mccullough IN [facility] AT 1340 ON [id number] BY | | | CRK Testing | | | performed at [facility];[address] [place] [address];[place] [address] CULTURE | | | STAPHYLOCOCCUS AUREUSAbnormal | | | STREPTOCOCCUS | | | ANGINOSUSAbnormal | | | TIME TO DETECTION: 0.85 DAYS | | | GROWTH IN TWO OF TWO BOTTLESAbnormal | | | Testing performed at [facility], [address] | | | [place] [address] REPORT STATUS | | | 04/15/2012 FINAL [...] At | + + + | CASE: [id number] PATIENT: CAROL POTTER Surgical Pathology Report | [...] performance | | | characteristics determined by [facility] and/or [employer] ([employer] | | | Pathology. These tests may [...] | | | investigational or for research. [facility] and [employer] ([employer] are | | | certified under the [...] GIVEN Testing | | | performed at [facility];[address] [facility];[place] [address] CULTURE | | | >100,000 CFU/ML STAPHYLOCOCCUS | | | AUREUSAbnormal | | | Testing performed at [facility], [address] [facility], [place], [place] | | | [address] REPORT STATUS 04/09/2012 | | | FINAL [...] | Procedure Note | + + | Nsétor, Rad Conversion - 02/14/2019 4:18 AM PDT [...] GIVEN Testing | | | performed at [facility];[address] [place] [address];[place] [address] CULTURE | | | >100,000 CFU/ML STAPHYLOCOCCUS | | | AUREUSAbnormal | | | Testing performed at [facility], [address] [place], [place] | | | [address] REPORT STATUS 04/08/2012 | | | FINAL [...] | Testing performed | | | at [facility];[address] [place] [address];[place] [address] SPECIAL REQUESTS | | | RAC | | | Testing performed at [facility];[address] [place] [address];[place] [address] | | | CULTURE NO GROWTH IN 5 DAYS. | | | Testing | | | performed at [facility];[address] [place] [address];[place] [address] REPORT STATUS | | | 04/09/2012 FINAL [...] LAB | | Testing performed at [facility];[address] | | | [facility];[place] [address] AFB STAIN | | | NO ACID FAST BACILLI SEEN | | | Testing performed at [facility], [address] [facility], | | | [place] [address] CULTURE | | | NO ACID FAST BACILLI ISOLATED | | | Testing performed at [facility], [address] [place] [address], | | | [place] [address] REPORT STATUS | | | 05/16/2012 FINAL [...] | Testing performed | | | at [facility];[address] [place] [address];[place] [address] SPECIAL REQUESTS | | | LAC | | | Testing performed at [facility];[address] [place] [address];[place] [address] | | | CULTURE NO GROWTH IN 5 DAYS. | | | Testing | | | performed at [facility];[address] [place] [address];[place] [address] REPORT STATUS | | | 04/09/2012 FINAL [...] CHEST | | 2 VIEW FRONTAL AND [id number]/02/2012 1:00 PM INDICATION: Shortness of breath | [...] | Testing performed at | | | [facility];[address] [facility];[place] [address] CULTURE | | | NO GROWTH 2 DAYS | | | Testing performed at [facility], [address] [facility], | | | [place] [address] REPORT STATUS | | | 04/04/2012 FINAL [...]
--- OUTSIDE RECORDS SUMMARY | ~2019-05-20 | XMS | Encounter Summary ---
Demographics + + + | Address | [address] | | | [place] [address] | + + + | Home Phone [...] Team Providers + +------+ + | Care Final Canoe Inspector Name | Role | Phone | + +------+ + PCP | Unavailable | + +------+ + Encounter Details +--------+ + + + + | Date | Type | Department | Care Team | Description | +--------+ + + + + | 04/30/ | Hospital | [facility] | Conversion | ESRD (end stage | | 2014 | Encounter | [facility]ENTER [facility] | Transaction, | renal disease) (HCC) | | | | [address] | Provider Unknown | | | | | [place], [place] | [phone] | | | | | [address] | | | | | | [phone] | Juan Timmons MD | | | | | | [address] | | | | | | [place] | | | | | | [address] | | | | | | | [...] 04/30/141711 Date of Service: 04/30/141709 Status: Signed [employer] Teacher: Vickie Hernandez RN (Registered Nurse) DC inst. D/w patient and spouse, copies given. Pt to f/u with Dr. Timmons (pt to call on [facility] for appt). VSS. DC to home. KPEOTRDave 04/29/14 @ 1712 docume nted in this encounter Plan of [...] PROCEDURE I met this patient in the [place] holding area. I had | | | [...] Palm Conversion - 02/06/2019 10:59 AM PDT PROCEDURERemoval [...] met this patient | | in the [place] holding area. I had a discussion with [...] | Testing performed at [facility], [address] [facility] | | | [place] [address] | | + + + + +---------+ [...]
--- OUTSIDE RECORDS SUMMARY | ~2019-05-20 | XMS | Encounter Summary ---
Demographics + + + | Address | [address] | | | [place] [address] | + + + | Home Phone | | + + + | Preferred Language | Unknown | + + + | Marital Status | Unknown | + + + | Taoism Affiliation | 1076 | + + + | Race | Unknown | + + + | Ethnic Group | Unknown | + + + Author + + + | Author | [facility] | | | and [place] | + + + | Organization | [facility] | | [...] Team Providers + +------+ + | Care District Attorney Name | Role | Phone | + +------+ + PCP | Unavailable | + +------+ + Encounter Details +--------+ + + + + | Date | Type | Department | Care Team | Description | +--------+ + + + + | 10/05/ | Hospital | [facility] | Conversion | End stage renal | | 2016 | Encounter | CENTER CV [facility] OP | Transaction, | disease (HCC) | | | | [address] | Provider Unknown | | | | | [place], [place] | [phone] | | | | | [address] | | | | | | [phone] | Uriel Sawyer, | | | | | | [address] | | | | | | [place], [place] | | | | | | [address] | | | | | | | [...] + + + | Blood Pressure | 124/61 | 10/06/2015 2:32 PM | | | | | PDT | | + + + + + | Pulse | 92 | 10/06/2015 2:32 PM | | | | | PDT | | + + + + + | Temperature | 36.8 C (98.3 F) | 10/06/2015 2:32 PM | | | | | PDT | | + + + + + | Respiratory Rate | 14 | 10/06/2015 2:32 PM | | | | | PDT | | + + + + + | Oxygen Saturation | - | - | | + + + + + | Inhaled Oxygen | - | - | | | Concentration | | | | + + + + + | Weight | 76.2 kg (168 lb) | 10/06/2015 2:32 PM | | | | | PDT | | + + + + + | Height | 170.2 cm (5' 7") | 10/06/2015 2:32 PM | | | | | PDT | | + + + + + | Body Mass Index | 26.31 | 10/06/2015 2:32 PM | | | | | PDT [...] Progress Notes Cee Transaction, Provider Unknown - 10/06/2015 2:32 PM PDTFormatting of this note m ight be different from the original. Nurse Progress Note by Randi Verduzco RN at 10/06/151431 Author: Randi Verduzco RN Service: (none) Author Type: Registered Nurse Filed: 10/06/151432 Date of Service: 10/06/151431 Status: Signed Flotation Tender: Randi Verduzco RN (Registered Nurse) Procedure complete. Pt tolerated well. vss . Discharge instructions given to pt and . Pt will be discharged home ambulatory with family. docume nted in this encounter Plan of Treatment Not on filedocumented as of this encounter Procedures + +--------+ + + + | Procedure Name | Priori | Date/Time | Associated Diagnosis | Comments | | | ty | | | | + +--------+ + + + | IR INJECTION | Routin | 10/06/2015 | | Results for this | | DIALYSIS CIRCUIT W | e | 2:06 PM | | procedure are in the | | ANGIOPLASTY | | PDT | | results section. | + +--------+ + + + | IR INJECTION | Routin | 10/06/2015 | | Results for this | | DIALYSIS CIRCUIT | e | 2:06 PM | | procedure are in the | | | | PDT | | results section. | + +--------+ + + + documented in this encounter Results IR Inj Dialysis Circuit w Angioplasty (10/06/2015 2:06 PM PDT) + + | Specimen | + + | | + + + + + | Impressions | Performed At | + + + | 1. Successful angioplasty of the significant focal stenosis in mid | | | right cephalic vein and failed attempt at recanalization of occluded | | | right distal subclavian vein with the good collaterals. [id number], | | | [id number], [id number] Electronically signed by Uriel Sawyer MD on | | | 10/06/2015 3:32 PM | | + + + + + + | Narrative | Performed At | + + + | [facility] 10/06/2015 2:06 PM HISTORY: | | | 50 years. Male. With chronic kidney disease stage V presents with | | | poor functioning right brachiocephalic fistula and pain. | | | EXAMINATION Right brachiocephalic fistulogram and angioplasty of | | | the focal stenosis in mid right cephalic vein using 8 mm x 4 cm | | | balloon catheter. MEDICATIONS: Isovue-200 22 cc, Heparin | | | 3800 units intravenous, Versed 1 mg intravenous, fentanyl 50-mcg | | | intravenous. Intra-procedure sedation time 11 minutes. The | | | radiation dose 11 mGray, Fluoroscopy time 3.9 minutes. Appropriate | | | physiologic monitoring, maintenance of adequate conscious sedation | | | and independent half-way supervision performed throughout the | | | [...] usual sterile fashion. | | | Right brachiocephalic fistula was accessed using micropuncture | | | needle and exchanged for 4-Monegasque micropuncture sheath. Initial | | | fistula pressure was obtained and fistulogram obtained from the | | | right cubital fossa to the right atrium. 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 4-Monegasque micropuncture sheath was exchanged for | | | 6-Monegasque short sheath over a 0.035, angled Glidewire. 8 mm x 4 cm | | | balloon catheter was advanced over the 0.035, angled Glidewire. | | | Balloon was positioned across stenosis in mid right cephalic | | | venous stenosis angioplasty was performed. During inflation of the | | | balloon across the venous anastomosis Reflux evaluation of the | | | arteriovenous anastomosis obtained. Then, using combination of 4 | | | Monegasque angled glide catheter and 0.035 angled Glidewire attempts to | | | traverse the distal right subclavian venous occlusion was | | | unsuccessful. Then, a final fistulogram obtained from the right | | | cubital fossa to the right atrium. Final fistula pressure and | | | arterial pressures were obtained. All catheters and wires then | | | removed and hemostasis obtained with manual pressure. No immediate | | | procedural complications. Patient tolerated the procedure well. | | | FINDINGS 1. Initial fistula pressure 78/56 mm Hg, arterial | | | pressure 121/70 mm Hg, final fistula pressure 57/45 mm Hg. 2. | | | Right brachiocephalic fistulogram revealed focal, more than 70 | | | percent stenosis mid right cephalic vein and occluded right distal | | | subclavian vein with prominent mediastinal collaterals. 3. | | | Successful angioplasty the significant stenosis and right mid | | | cephalic vein and failed attempt at traversing occluded right | | | subclavian vein. | | + + + + + | Procedure Note | + + | Néstor, Rad Conversion - 02/05/2019 5:14 PM PDT [facility] | | FISTULAGRAM10/06/2015 2:06 PM HISTORY:50 years. Male. With chronic kidney disease stage | | V presents with poor functioning right brachiocephalic fistula and pain. EXAMINATION | | Right brachiocephalic fistulogram and angioplasty of the focal stenosis in mid right | | cephalic vein using 8 mm x 4 cm balloon catheter. MEDICATIONS: Isovue-200 22 cc, | | Heparin 3800 units intravenous, Versed 1 mg intravenous, fentanyl 50-mcg intravenous. | | Intra-procedure sedation time 11 minutes. The radiation dose 11 mGray, Fluoroscopy | | time 3.9 minutes. Appropriate physiologic monitoring, maintenance of adequate conscious | | sedation and independent half-way supervision performed throughout the | | procedure. PROCEDURE: Informed written consent obtained from the patient after | | explaining the procedure, risks and alternatives. Patient understood the discussion and | | expressed a wish to proceed.The appropriate side and site was labeled and initialed as | | an independent process antecedent to the imaging and intervention, as per protocol at | | this institution. Patient was placed supine on the x-ray table. The right arm prepped | | in the usual sterile fashion. Right brachiocephalic fistula was accessed using | | micropuncture needle and exchanged for 4-Monegasque micropuncture sheath. Initial fistula | | pressure was obtained and fistulogram obtained from the right cubital fossa to the | | right atrium. Given the focal, more than 70 percent stenosis in the mid right cephalic | | vein and occluded distal right subclavian vein, I decided to perform angioplasty of the | | venous lesions. 4-Monegasque micropuncture sheath was exchanged for 6-Monegasque short sheath | | over a 0.035, angled Glidewire. 8 mm x 4 cm balloon catheter was advanced over the | | 0.035, angled Glidewire. Balloon was positioned across stenosis in mid right cephalic | | venous stenosis angioplasty was performed. During inflation of the balloon across the | | venous anastomosis Reflux evaluation of the arteriovenous anastomosis obtained. Then, | | using combination of 4 Monegasque angled glide catheter and 0.035 angled Glidewire attempts | | to traverse the distal right subclavian venous occlusion was unsuccessful. Then, a final | | fistulogram obtained from the right cubital fossa to the right atrium. Final fistula | | pressure and arterial pressures were obtained. All catheters and wires then removed and | | hemostasis obtained with manual pressure. No immediate procedural complications. | | Patient tolerated the procedure well. FINDINGS1. Initial fistula pressure 78/56 mm Hg, | | arterial pressure 121/70 mm Hg, final fistula pressure 57/45 mm Hg.2. Right | | brachiocephalic fistulogram revealed focal, more than 70 percent stenosis mid right | | cephalic vein and occluded right distal subclavian vein with prominent mediastinal | | collaterals.3. Successful angioplasty the significant stenosis and right mid cephalic | | vein and failed attempt at traversing occluded right subclavian vein. IMPRESSION: 1. | | Successful angioplasty of the significant focal stenosis in mid right cephalic vein and | | failed attempt at recanalization of occluded right distal subclavian vein with the good | | collaterals. [id number], [id number], [id number] Electronically signed by Uriel Sawyer MD on | | 10/06/2015 3:32 PM | | | |[id number], [id number], [id number] | | | | | + + IR Inj Dialysis Circuit (10/06/2015 2:06 PM PDT) + + | Specimen | + + | | + + + + + | Impressions | Performed At | + + + | 1. Successful angioplasty of the significant focal stenosis in mid | | | right cephalic vein and failed attempt at recanalization of occluded | | | right distal subclavian vein with the good collaterals. [id number], | | | [id number], [id number] Electronically signed by Uriel Sawyer MD on | | | 10/06/2015 3:32 PM | | + + + + + + | Narrative | Performed At | + + + | [facility] 10/06/2015 2:06 PM HISTORY: | | | 50 years. Male. With chronic kidney disease stage V presents with | | | poor functioning right brachiocephalic fistula and pain. | | | EXAMINATION Right brachiocephalic fistulogram and angioplasty of | | | the focal stenosis in mid right cephalic vein using 8 mm x 4 cm | | | balloon catheter. MEDICATIONS: Isovue-200 22 cc, Heparin | | | 3800 units intravenous, Versed 1 mg intravenous, fentanyl 50-mcg | | | intravenous. Intra-procedure sedation time 11 minutes. The | | | radiation dose 11 mGray, Fluoroscopy time 3.9 minutes. Appropriate | | | physiologic monitoring, maintenance of adequate conscious sedation | | | and independent half-way supervision performed throughout the | | | [...] usual sterile fashion. | | | Right brachiocephalic fistula was accessed using micropuncture | | | needle and exchanged for 4-Monegasque micropuncture sheath. Initial | | | fistula pressure was obtained and fistulogram obtained from the | | | right cubital fossa to the right atrium. 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 4-Monegasque micropuncture sheath was exchanged for | | | 6-Monegasque short sheath over a 0.035, angled Glidewire. 8 mm x 4 cm | | | balloon catheter was advanced over the 0.035, angled Glidewire. | | | Balloon was positioned across stenosis in mid right cephalic | | | venous stenosis angioplasty was performed. During inflation of the | | | balloon across the venous anastomosis Reflux evaluation of the | | | arteriovenous anastomosis obtained. Then, using combination of 4 | | | Monegasque angled glide catheter and 0.035 angled Glidewire attempts to | | | traverse the distal right subclavian venous occlusion was | | | unsuccessful. Then, a final fistulogram obtained from the right | | | cubital fossa to the right atrium. Final fistula pressure and | | | arterial pressures were obtained. All catheters and wires then | | | removed and hemostasis obtained with manual pressure. No immediate | | | procedural complications. Patient tolerated the procedure well. | | | FINDINGS 1. Initial fistula pressure 78/56 mm Hg, arterial | | | pressure 121/70 mm Hg, final fistula pressure 57/45 mm Hg. 2. | | | Right brachiocephalic fistulogram revealed focal, more than 70 | | | percent stenosis mid right cephalic vein and occluded right distal | | | subclavian vein with prominent mediastinal collaterals. 3. | | | Successful angioplasty the significant stenosis and right mid | | | cephalic vein and failed attempt at traversing occluded right | | | subclavian vein. | | + + + + + | Procedure Note | + + | Néstor, Rad Conversion - 02/05/2019 5:14 PM PDT [facility] | | FISTULAGRAM10/06/2015 2:06 PM HISTORY:50 years. Male. With chronic kidney disease stage | | V presents with poor functioning right brachiocephalic fistula and pain. EXAMINATION | | Right brachiocephalic fistulogram and angioplasty of the focal stenosis in mid right | | cephalic vein using 8 mm x 4 cm balloon catheter. MEDICATIONS: Isovue-200 22 cc, | | Heparin 3800 units intravenous, Versed 1 mg intravenous, fentanyl 50-mcg intravenous. | | Intra-procedure sedation time 11 minutes. The radiation dose 11 mGray, Fluoroscopy | | time 3.9 minutes. Appropriate physiologic monitoring, maintenance of adequate conscious | | sedation and independent half-way supervision performed throughout the | | procedure. PROCEDURE: Informed written consent obtained from the patient after | | explaining the procedure, risks and alternatives. Patient understood the discussion and | | expressed a wish to proceed.The appropriate side and site was labeled and initialed as | | an independent process antecedent to the imaging and intervention, as per protocol at | | this institution. Patient was placed supine on the x-ray table. The right arm prepped | | in the usual sterile fashion. Right brachiocephalic fistula was accessed using | | micropuncture needle and exchanged for 4-Monegasque micropuncture sheath. Initial fistula | | pressure was obtained and fistulogram obtained from the right cubital fossa to the | | right atrium. Given the focal, more than 70 percent stenosis in the mid right cephalic | | vein and occluded distal right subclavian vein, I decided to perform angioplasty of the | | venous lesions. 4-Monegasque micropuncture sheath was exchanged for 6-Monegasque short sheath | | over a 0.035, angled Glidewire. 8 mm x 4 cm balloon catheter was advanced over the | | 0.035, angled Glidewire. Balloon was positioned across stenosis in mid right cephalic | | venous stenosis angioplasty was performed. During inflation of the balloon across the | | venous anastomosis Reflux evaluation of the arteriovenous anastomosis obtained. Then, | | using combination of 4 Monegasque angled glide catheter and 0.035 angled Glidewire attempts | | to traverse the distal right subclavian venous occlusion was unsuccessful. Then, a final | | fistulogram obtained from the right cubital fossa to the right atrium. Final fistula | | pressure and arterial pressures were obtained. All catheters and wires then removed and | | hemostasis obtained with manual pressure. No immediate procedural complications. | | Patient tolerated the procedure well. FINDINGS1. Initial fistula pressure 78/56 mm Hg, | | arterial pressure 121/70 mm Hg, final fistula pressure 57/45 mm Hg.2. Right | | brachiocephalic fistulogram revealed focal, more than 70 percent stenosis mid right | | cephalic vein and occluded right distal subclavian vein with prominent mediastinal | | collaterals.3. Successful angioplasty the significant stenosis and right mid cephalic | | vein and failed attempt at traversing occluded right subclavian vein. IMPRESSION: 1. | | Successful angioplasty of the significant focal stenosis in mid right cephalic vein and | | failed attempt at recanalization of occluded right distal subclavian vein with the good | | collaterals. [id number], [id number], [id number] Electronically signed by Uriel Sawyer MD on | | 10/06/2015 3:32 PM | | | |[id number], [id number], [id number] | | | | | + + documented in this encounter Visit Diagnoses + + | Diagnosis | + + | End stage renal disease (HCC) End stage renal disease | + + documented in this encounter
--- OUTSIDE RECORDS SUMMARY | ~2019-05-20 | XMS | Encounter Summary ---
Demographics + + + | Address | [address] | | | [place] [address] | + + + | Home Phone | | + + + | Preferred Language | Unknown | + + + | Marital Status | Unknown | + + + | Christianity Affiliation | 1076 | + + + | Race | Unknown | + + + | Ethnic Group | Unknown | + + + Author + + + | Author | [facility] | | | and [place] | + + + | Organization | [facility] | | | and [...] Team Providers + +------+ + | Care Program Director Name | Role | Phone | + +------+ + PCP | Unavailable | + +------+ + Encounter Details +--------+ + + + + | Date | Type | Department | Care Team | Description | +--------+ + + + + | 07// | Orders Only | [facility] | Provider, | | | 2018 | | [facility] GENER[facility] | [address] | | | | | [facility] | [address] | | | | | [address] [place], [place] | [place] [address] | | | | | [address] | | | | | | [phone] | | | +--------+ + + + [...]
--- OUTSIDE RECORDS SUMMARY | ~2019-05-20 | XMS | Encounter Summary ---
Demographics + + + | Address | [address] | | | [place] [address] | + + + | Home Phone | | + + + | Preferred Language | Unknown | + + + | Marital Status | Unknown | + + + | Yazidi Affiliation | [id number] | + + + | Race | Unknown | + + + | Ethnic Group | Unknown | + + + Author + + + | Author | [facility] | | | and [place] | + + + | Organization | [facility] | | [...] Team Providers + +------+ + | Care Game Author Name | Role | Phone | + +------+ + PCP | Unavailable | + +------+ + Encounter Details +--------+ + + + + | Date | Type | Department | Care Team | Description | +--------+ + + + + | 10/03/ | Hospital | [facility] | Arlin Galdino Saavedra | Adult failure to | | 2012 - | Encounter | [facility] | MD [address] | thrive; PUD (peptic | | | | CARE FLOOR [address] | ulcer disease); | | 10/15/ | | [address] | [place] [address] | Secondary | | 2012 | | [place], [place] | [phone] | hyperparathyroidism | | | | [address] | | (of renal origin) | | | | [phone] | | ([facility]); Vitamin d | | | | | | deficiency; C. 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 ESRD (end-stage | | | | | | renal disease) | | | | | | ([facility]); HTN | | | | | | (hypertension); | | | | | | Bacteremia; | | | | | | Staphylococcus | | | | | | aureus bacteremia | | | | | | with sepsis ([facility]); | | | | | | Fever; | | | | | | Hypoalbuminemia; End | | | | | | stage renal failure | | | | | | on dialysis ([facility]); | | | | | | Obesity (BMI | | | | | | 30-39.9); | | | | | | Hyponatremia; | | | | | | Malnutrition of | | | | | | moderate degree | | | | | | ([facility]); Weakness | | | | | | generalized; | | | | | | Incomplete RBBB; | | | | | | Anemia of chronic | | | | | | kidney failure; ESRD | | | | | | (end stage renal | | | | | | disease) on dialysis | | | | | | ([facility]); Gout; | | | | | | [...] 10/15/12905 Date of Service: 10/15/12901 Status: Signed Discharge Specialist: Vikram Chandra MD (Physician) [facility] Service: Hospitalist Physician Discharge Summary Pt: Carol Potter AGE/SEX: 47 y.o. male ROOM: [facility]5/6605-1 PCP: [facility] : 1965 Admit date: 10/03/2012 Discharge [...] 45 %. 3. No vegetation visualized. 4. Ypbe-qs-dpwxfeah mitral regurgitation is present. 5. There is [...] by Dr. Meyer. This was created using aniak vein and does not contain any graft [...] Lab 10/10/12 0250 PHART -- PO2ART -- QCP3NYF -- G2HIMRFE -- BEART 4* Lab 10/10/12 1331 10/10/12 [...] times daily as needed . ergocalciferol (DRISDOL) 63560 UNITS capsule Take 1 capsule by mouth [...] Notes by Ruslan Amezquita PTA at 10/15/12 7824 Author: Ruslan Amezquita PTA Service: (none) Author Type: Sizing Sponger Filed: 10/15/12 1224 Date of Service: 10/15/12 1224 Status: Signed Discharge Specialist: Ruslan Amezquita PTA (Sizing Sponger) 10/15/12 1224 PT Last Visit PT Received On 10/15/12 PT Therapy Visit Not available Requires PT Follow Up Unavailable Other Comments Comments receiving HD onver quique Transaction, Provider Unknown - 10/15/2012 11:53 AM PDT Progress Notes by Kelley Toussaint RPH at 10/15/12 1153 Author: Kelley Toussaint RPH Service: (none) Author Type: Pharmacist Filed: 10/15/12 1153 Date of Service: 10/15/12 115 Status: Signed Discharge Specialist: Kelley Toussaint RPH (Pharmacist) Clinical Pharmacy Note: [...] Date of Service: 10/15/12 1034 Status: Signed Discharge Specialist: Sean Solorzano MD (Physician) [facility] Service: NEPHROLOGY Progress Note Carol Potter 47 y.o. [id number] 6605/[id number] male [facility] Hospital Day: LOS: 12 days SUBJECTIVE [...] --ORTHO MRSA BACTEREMIA VANCO DURING HD AT [facility] NEEDS TO BE FAXED FROM [...] W/ EGD; Surgeon: John Singleton MD; Location: [facility] ENDOSCOPY; Se rvice: Gastroenterology; Laterality: N/A; Av fistula placement 05/06/2012 Procedure: AV FISTULA; Surgeon: Oskar Meyer MD; Location: [facility] MAIN OR; Service: Vascul ar; Laterality: Left; Left arm possible right Unlisted procedure arthroscopy shoulder rt , ligaments Knee arthroscopy 07/07/2012 Procedure: KNEE - ARTHROSCOPY; Surgeon: Favio Raza MD; Location: [facility] MAIN OR; Milton murillo: Orthopedics; Laterality: Right; After 1530 Catheter removal 07/07/2012 Procedure: DIALYSIS CATHETER REMOVAL; Surgeon: Oskar Meyer MD; Location: [facility] [place]EDSIDE [place] OCEDURE; Service: General; Laterality: Right; perm cath Dialysis fistula creation 07/07/2012 Procedure: DIALYSIS CATHETER INSERTION; Surgeon: Oskar Meyer MD; Location: [facility] BEDSIDE PROCEDURE; Service: General; Laterality: Left; temporary dialysis catheter Av fistula repair 07/11/2012 Procedure: AV FISTULA GRAFT REPAIR/REVISION; Surgeon: Oskar Meyer MD; Location: [facility] OR; Service: Vascular; Laterality: Left; Superficialization of brachiobasilic fistula and right IJ perm cath insertion Dialysis fistula creation 07/11/2012 Procedure: DIALYSIS CATHETER INSERTION; Surgeon: Oskar Meyer MD; Location: [facility] MAIN OR; Service: Vascular; Laterality: [...] BIOLOGICAL; 2 STEP KIDSUNEMPLOYED BEFORE WORKED AT [employer] IN [employer] NONE ETOH QUIT 15 YEARS AGODRUGS: quit [...] vancomycin 750 mg Intravenous Once vitamin B lpecsbi-W-nzzav acid 1 tablet Oral Daily Continuous Infusions [...] Results Component Value Date PTHINTACT 255* 04/02/2012 [id number] <12* 04/02/2012 Lab Results Component Value Date [...] Name: CAROL POTTER Date of : 1965 [facility] Physician: Beny Valencia MD INDICATIONS endocarditis CONCLUSIONS 1. The left ventricle i s moderately dilated. 2. Overall left ventricular systolic function is mild-moderately impai red with, an EF between 40 - 45 %. 3. No vegetation visualized. 4. Frcv-hh-epzogsea mitral r egurgitation is present. 5. There [...] Aortic Valve: No vegetation visualized. Mitral Valve: Idvc-ta-kmholslm mitral regurgitation is present. Tricuspid Valve: The tricuspid valve appears structurally normal. Trace/Mild (physiologic) regurgitation. Aorta: Ascending aorta, aortic arch and descending thoracic aorta are of normal caliber with no significant atherosclerotic disease. Mass: No m ass visualized. Thrombus: No clot visualized. Pericardium: There is a trivial pericardial ef fusion present. MEASUREMENTS Clinical Care Coordinator: RADHA Authenticated by: Beny Rousseau Report Date/Time: [...] who is dialyzed Saturday and Saturday at [place] dialysis unit via Left upper extremity pr [...] binders for now. He would benefit from gamb cutter evaluation. And MEGACE Staphylococcus aureus bacteremia with [...] to be faxed to HD UNIT BY PREPARATION ROOM MANAGER D/W EDUCATED PT ON FLUID RESTRICTION 1.5 L/24 hrs CM:Discharge planning update: CM called to follow-up if [place] had an available bed. Dominick Willoughby spoke with ibrahima Merino male beds available at this time. Pt continued to have SNF [facility] ement at [facility] in [place] for when medically stable for discharge. Time [...] Author: VANDANA Alvarado Service: (none) Author Type: Credit Reference Clerk Filed: 10/15/12 0444 Date of Service: 10/15/12 1018 Status: Signed Discharge Specialist: VANDANA Alvarado (Credit Reference Clerk) Pt is aware that he is dc'ing to [facility] in [place]. Spoke w/ she is not able to [...] Notes by Sean Solorzano MD at 10/14/12 2179 Author: Sean Solorzano MD Service: Nephrology Author Type: Physician Filed: 10/14/12 1532 Date of Service: 10/14/12 6314 Status: Signed Discharge Specialist: Sean Solorzano MD (Physician) [facility] Service: NEPHROLOGY Progress Note Carol Potter 47 y.o. [id number] male [facility] Hospital Day: LOS: 11 days SUBJECTIVE [...] --ORTHO MRSA BACTEREMIA VANCO DURING HD AT [facility] NEEDS TO BE FAXED FROM [...] W/ EGD; Surgeon: John Singleton MD; Location: [facility] ENDOSCOPY; Se rvice: Gastroenterology; Laterality: N/A; Av fistula placement 05/06/2012 Procedure: AV FISTULA; Surgeon: Oskar Meyer MD; Location: [facility] MAIN OR; Service: Vascul ar; Laterality: Left; Left arm possible right Unlisted procedure arthroscopy shoulder rt , ligaments Knee arthroscopy 07/07/2012 Procedure: KNEE - ARTHROSCOPY; Surgeon: Favio Raza MD; Location: [facility] MAIN OR; ervice: Orthopedics; Laterality: Right; After 1530 Catheter removal 07/07/2012 Procedure: DIALYSIS CATHETER REMOVAL; Surgeon: Oskar Meyer MD; Location: [facility] [place]IDE [place]EDURE; Service: General; Laterality: Right; perm cath Dialysis fistula creation 07/07/2012 Procedure: DIALYSIS CATHETER INSERTION; Surgeon: Oskar Meyer MD; Location: [facility] BEDSIDE PROCEDURE; Service: General; Laterality: Left; temporary dialysis catheter Av fistula repair 07/11/2012 Procedure: AV FISTULA GRAFT REPAIR/REVISION; Surgeon: Oskar Meyer MD; Location: [facility] OR; Service: Vascular; Laterality: Left; Superficialization of brachiobasilic fistula and right IJ perm cath insertion Dialysis fistula creation 07/11/2012 Procedure: DIALYSIS CATHETER INSERTION; Surgeon: Oskar Meyer MD; Location: [facility] MAIN OR; Service: Vascular; Laterality: [...] BIOLOGICAL; 2 STEP KIDSUNEMPLOYED BEFORE WORKED AT [employer] [place] [employer] NONE ETOH QUIT 15 YEARS AGODRUGS: quit [...] vancomycin 750 mg Intravenous Once vitamin B jfwihze-X-nxewc acid 1 tablet Oral Daily Continuous Infusions [...] Results Component Value Date PTHINTACT 255* 04/02/2012 [id number] <12* 04/02/2012 Lab Results Component Value Date [...] Name: CAROL POTTER Date of : 1965 [facility] Physician: Beny Valencia MD INDICATIONS endocarditis CONCLUSIONS 1. The left ventricle i s moderately dilated. 2. Overall left ventricular systolic function is mild-moderately impai red with, an EF between 40 - 45 %. 3. No vegetation visualized. 4. Pwpo-nc-rztcijva mitral r egurgitation is present. 5. There [...] Aortic Valve: No vegetation visualized. Mitral Valve: Yupz-wy-ycuhbcqr mitral regurgitation is present. Tricuspid Valve: The tricuspid valve appears structurally normal. Trace/Mild (physiologic) regurgitation. Aorta: Ascending aorta, aortic arch and descending thoracic aorta are of normal caliber with no significant atherosclerotic disease. Mass: No m ass visualized. Thrombus: No clot visualized. Pericardium: There is a trivial pericardial ef fusion present. MEASUREMENTS Clinical Care Coordinator: RADHA Authenticated by: Beny Rousseau Report Date/Time: [...] who is dialyzed Saturday and Saturday at [place] dialysis unit via Left upper extremity pr [...] binders for now. He would benefit from gamb cutter evaluation. Staphylococcus aureus bacteremia with sepsis: getting [...] to be faxed to HD UNIT BY PREPARATION ROOM MANAGER D/W EDUCATED PT ON FLUID RESTRICTION 1.5 L/24 hrs Time spend over 25 minutes of time spent evaluating the patient, reviewing the data, formul ating a plan and discussion with patient and hospitalist team, more than half of the time sp ent in counseling and coordination of care. CM:Discharge planning update: CM called to follow-up if [place] had an available bed. Dominick Willoughby spoke with ibrahima Merino male beds available at this time. Pt continued to have SNF plac ement at [facility] in [place] for when medically stable for discharge. SEAN SOLORZANO MD 10/14/2012 onversio n Transaction, Provider Unknown - 10/14/2012 1:29 PM PDTFormatting of this note might be di fferent from the original. Progress Notes by Macho Abraham MS at 10/14/12 1329 Author: Macho Abraham MS Service: (none) Author Type: Credit Reference Clerk Filed: 10/14/12 0677 Date of Service: 10/14/12 1329 Status: Addendum Discharge Specialist: Macho Abraham MS (Credit Reference Clerk) Related Notes: Original Note by Macho Abraham MS (Credit Reference Clerk) filed at 10/14/12 3671 RADHA called [facility] ([place] [phone]) to update on discharge status and faxed updated ID i nformation (vanco with HD) Cm also called Ophelia Tong the [facility] RN for marty [phone] and let her know that transportation (they coordinate dialysis t [facility] in [place]) will be needed. RADHA also spoke with pt's spouse who is in the room w [facility] pt and encouraged her to call her [...] Ruslan Amezquita PTA Service: (none) Author Type: Sizing Sponger Filed: 10/14/12 1051 Date of Service: 10/14/12 105 Status: Signed Discharge Specialist: Ruslan Amezquita PTA (Sizing Sponger) 10/14/12 1050 PT Last Visit PT Received [...] 0937 Date of Service: 10/14/12919 Status: Signed Discharge Specialist: Trevor Escobar DO (Physician) [facility] Service: Infectious Disease Progress Note Hospital [...] vancomycin 750 mg Intravenous Once vitamin B mymzelp-R-kcvaa acid 1 tablet Oral Daily Continuous Infusions [...] 0852 Date of Service: 10/14/1243 Status: Addendum Discharge Specialist: Vikram Chandra MD (Physician) Related Notes: Original Note by Vikram Chandra MD (Physician) filed at 10/14/12 0851 [facility] Service: Hospitalist Progress Note Pt: Carol Potter AGE/SEX: 47 y.o. male ROOM: [address] [place] [address] : 1965 PCP: [facility] ADMIT DATE: 10/03/2012 TODAY'S DATE: 10/14/2012 [...] by Dr. Meyer. This was created using [place] vein and does not contain any graft [...] vancomycin 750 mg Intravenous Once vitamin B pouejgg-B-flray acid 1 tablet Oral Daily Continuous Infusions [...] Lab 10/10/12 0250 PHART -- PO2ART -- [id number] -- [id number] -- BEART 4* Lab 10/10/12 1331 10/10/12 [...] 0835 Date of Service: 10/14/1235 Status: Signed Discharge Specialist: Kristina Zendejas RPH (Pharmacist) Vancomycin day 7--Saturday no dialysis, no dose onver quique Transaction, Provider Unknown - 10/13/2012 12:26 PM PDT Progress Notes by Ruslan Amezquita PTA at 10/13/12 1226 Author: Ruslan Amezquita PTA Service: (none) Author Type: Sizing Sponger Filed: 10/13/12 1226 Date of Service: 10/13/12 1226 Status: Signed Discharge Specialist: Ruslan Amezquita PTA (Sizing Sponger) 10/13/12 1226 PT Last Visit PT Received On 10/13/12 PT Therapy Visit Not available Requires PT Follow Up Unavailable Other Comments Comments receiving HD onver quique Transaction, Provider Unknown - 10/13/2012 11:31 AM PDT Progress Notes by Kristina Zendejas RPH at 10/13/12 1131 Author: Kristina Zendejas RPH Service: (none) Author Type: Pharmacist Filed: 10/13/12 1131 Date of Service: 10/13/12 1131 Status: Signed Discharge Specialist: Kristina Zendejas RPH (Pharmacist) Vancomycin Day 6 Dialysis [facility] does for today. Kristina Zendejas [place] Sean Willis T - 10/13/2012 10:58 AM PDTFormatting of this note might be different from the origi nal. Progress Notes by Sean Solorzano MD at 10/13/12 1058 Author: Sean Solorzano MD Service: Nephrology Author Type: Physician Filed: 10/13/12 1580 Date of Service: 10/13/121057 Status: Signed Discharge Specialist: Sean Solorzano MD (Physician) [facility] Service: NEPHROLOGY Progress Note Carol Potter 47 y.o. [id number] male [facility] Hospital Day: LOS: 10 days SUBJECTIVE [...] W/ EGD; Surgeon: John Singleton MD; Location: [facility] ENDOSCOPY; Se rvice: Gastroenterology; Laterality: N/A; Av fistula placement 05/06/2012 Procedure: AV FISTULA; Surgeon: Oskar Meyer MD; Location: [facility] MAIN OR; Service: Vascul ar; Laterality: Left; Left arm possible right Unlisted procedure arthroscopy shoulder rt , ligaments Knee arthroscopy 07/07/2012 Procedure: KNEE - ARTHROSCOPY; Surgeon: Favio Raza MD; Location: [facility] MAIN OR; ervice: Orthopedics; Laterality: Right; After 1530 Catheter removal 07/07/2012 Procedure: DIALYSIS CATHETER REMOVAL; Surgeon: Oskar Meyer MD; Location: [facility] [place]IDE [place]; Service: General; Laterality: Right; perm cath Dialysis fistula creation 07/07/2012 Procedure: DIALYSIS CATHETER INSERTION; Surgeon: Oskar Meyer MD; Location: [facility] BEDSIDE PROCEDURE; Service: General; Laterality: Left; temporary dialysis catheter Av fistula repair 07/11/2012 Procedure: AV FISTULA GRAFT REPAIR/REVISION; Surgeon: Oskar Meyer MD; Location: [facility] OR; Service: Vascular; Laterality: Left; Superficialization of brachiobasilic fistula and right IJ perm cath insertion Dialysis fistula creation 07/11/2012 Procedure: DIALYSIS CATHETER INSERTION; Surgeon: Oskar Meyer MD; Location: [facility] MAIN OR; Service: Vascular; Laterality: [...] BIOLOGICAL; 2 STEP KIDSUNEMPLOYED BEFORE WORKED AT [employer] [place] [employer] NONE ETOH QUIT 15 YEARS AGODRUGS: quit [...] vancomycin 750 mg Intravenous Once vitamin B ephvunb-F-lhdkd acid 1 tablet Oral Daily Continuous Infusions [...] Results Component Value Date PTHINTACT 255* 04/02/2012 [id number] <12* 04/02/2012 Lab Results Component Value Date [...] Name: CAROL POTTER Date of : 1965 [facility] Physician: Beny Valencia MD INDICATIONS endocarditis CONCLUSIONS 1. The left ventricle i s moderately dilated. 2. Overall left ventricular systolic function is mild-moderately impai red with, an EF between 40 - 45 %. 3. No vegetation visualized. 4. Klfb-wp-zugeozix mitral r egurgitation is present. 5. There [...] Aortic Valve: No vegetation visualized. Mitral Valve: Pgwj-je-yfyssjag mitral regurgitation is present. Tricuspid Valve: The tricuspid valve appears structurally normal. Trace/Mild (physiologic) regurgitation. Aorta: Ascending aorta, aortic arch and descending thoracic aorta are of normal caliber with no significant atherosclerotic disease. Mass: No m ass visualized. Thrombus: No clot visualized. Pericardium: There is a trivial pericardial ef fusion present. MEASUREMENTS Clinical Care Coordinator: RADHA Authenticated by: Beny Rousseau Report Date/Time: [...] who is dialyzed Saturday and Saturday at [place] dialysis unit via Left upper extremity pr [...] binders for now. He would benefit from gamb cutter evaluation. Staphylococcus aureus bacteremia with sepsis: getting [...] planning update: CM called to follow-up if [place] had an available bed. Dominick Willoughby spoke with Susannagwendolyn, provate male beds available at this time. Pt continued to have SNF plac ement at [facility] for when medically stable for discharge. SEAN SOLORZANO MD 10/13/2012 onversio n Transaction, Provider Unknown - 10/13/2012 9:24 AM PDTFormatting of this note might be di fferent from the original. Progress Notes by Macho Abraham MS at 10/13/12923 Author: Macho Abraham MS Service: (none) Author Type: Credit Reference Clerk Filed: 10/13/12929 Date of Service: 10/13/12923 Status: Addendum Discharge Specialist: Macho Abraham MS (Credit Reference Clerk) Related Notes: Original Note by Macho Abraham MS (Credit Reference Clerk) filed at 10/13/12924 Discharge planning update: CM called to follow-up if [place] had an available bed. RADHA s poke with Rhondi, provate male beds available at this time. Pt continued to have SNF placeme nt at [facility] for when medically stable for discharge. Trevor Lockett - 10/13/2012 9:20 AM PDTFormatting of this note might be different from the origina l. Progress Notes by Trevor Escobar DO at 10/13/12919 Author: Trevor Escobar DO Service: (none) Author Type: Physician Filed: 10/13/12924 Date of Service: 10/13/12919 Status: Signed Discharge Specialist: Trevor Escobar DO (Physician) [facility] Service: Infectious Disease Progress Note Hospital [...] vancomycin 750 mg Intravenous Once vitamin B bbzrudq-S-wkitd acid 1 tablet Oral Daily Continuous Infusions [...] 0919 Date of Service: 10/13/12910 Status: Addendum Discharge Specialist: Vikram Chandra MD (Physician) Related Notes: Original Note by Vikram Chandra MD (Physician) filed at 10/13/12 0918 [facility] Service: Hospitalist Progress Note Pt: Carol Potter AGE/SEX: 47 y.o. male ROOM: [address] [place] [address] : 1965 PCP: [facility] ADMIT DATE: 10/03/2012 TODAY'S DATE: 10/13/2012 [...] by Dr. Meyer. This was created using [place] vein and does not contain any graft [...] vancomycin 750 mg Intravenous Once vitamin B tuujtyc-B-cyxbc acid 1 tablet Oral Daily Continuous Infusions [...] Lab 10/10/12 0250 PHART -- PO2ART -- WBN7HGG -- S3XCYEOF -- BEART 4* Lab 10/10/12 1331 10/10/12 [...] Notes by Sean Solorzano MD at 10/12/12 1874 Author: Sean Solorzano MD Service: Nephrology Author Type: Physician Filed: 10/12/12 9989 Date of Service: 10/12/12 8367 Status: Signed Discharge Specialist: Sean Solorzano MD (Physician) [facility] Service: NEPHROLOGY Progress Note Carol Potter 47 y.o. [id number] male [facility] Hospital Day: LOS: 9 days SUBJECTIVE [...] W/ EGD; Surgeon: John Singleton MD; Location: [facility] ENDOSCOPY; Se rvice: Gastroenterology; Laterality: N/A; Av fistula placement 05/06/2012 Procedure: AV FISTULA; Surgeon: Oskar Meyer MD; Location: [facility] MAIN OR; Service: Vascul ar; Laterality: Left; Left arm possible right Unlisted procedure arthroscopy shoulder rt , ligaments Knee arthroscopy 07/07/2012 Procedure: KNEE - ARTHROSCOPY; Surgeon: Favio Raza MD; Location: [facility] MAIN OR; S ervice: Orthopedics; Laterality: Right; After 1530 Catheter removal 07/07/2012 Procedure: DIALYSIS CATHETER REMOVAL; Surgeon: Oskar Meyer MD; Location: [facility] [place]IDE [place]; Service: General; Laterality: Right; perm cath Dialysis fistula creation 07/07/2012 Procedure: DIALYSIS CATHETER INSERTION; Surgeon: Oskar Meyer MD; Location: [facility] BEDSIDE PROCEDURE; Service: General; Laterality: Left; temporary dialysis catheter Av fistula repair 07/11/2012 Procedure: AV FISTULA GRAFT REPAIR/REVISION; Surgeon: Oskar Meyer MD; Location: [facility] OR; Service: Vascular; Laterality: Left; Superficialization of brachiobasilic fistula and right IJ perm cath insertion Dialysis fistula creation 07/11/2012 Procedure: DIALYSIS CATHETER INSERTION; Surgeon: Oskar Meyer MD; Location: [facility] MAIN OR; Service: Vascular; Laterality: [...] BIOLOGICAL; 2 STEP KIDSUNEMPLOYED BEFORE WORKED AT [employer] [place] [employer] NONE ETOH QUIT 15 YEARS AGODRUGS: quit [...] mg Intravenous See Admin Instructions vitamin B lvotgus-X-ycwoc acid 1 tablet Oral Daily Continuous Infusions [...] Results Component Value Date PTHINTACT 255* 04/02/2012 [id number] <12* 04/02/2012 Lab Results Component Value Date [...] Name: CAROL POTTER Date of : 1965 [facility] Physician: Beny Valencia MD INDICATIONS endocarditis CONCLUSIONS 1. The left ventricle i s moderately dilated. 2. Overall left ventricular systolic function is mild-moderately impai red with, an EF between 40 - 45 %. 3. No vegetation visualized. 4. Gsvu-wr-dcidtorq mitral r egurgitation is present. 5. There [...] Aortic Valve: No vegetation visualized. Mitral Valve: Vmmn-bn-xtfqbicn mitral regurgitation is present. Tricuspid Valve: The tricuspid valve appears structurally normal. Trace/Mild (physiologic) regurgitation. Aorta: Ascending aorta, aortic arch and descending thoracic aorta are of normal caliber with no significant atherosclerotic disease. Mass: No m ass visualized. Thrombus: No clot visualized. Pericardium: There is a trivial pericardial ef fusion present. MEASUREMENTS Clinical Care Coordinator: RADHA Authenticated by: Beny Rousseau Report Date/Time: [...] who is dialyzed Saturday and Saturday at [place] dialysis unit via Left upper extremity pr [...] binders for now. He would benefit from gamb cutter evaluation. Staphylococcus aureus bacteremia with sepsis: getting [...] Service: Hospitalist Author Type: Physician Filed: 10/12/12 1208 Date of Service: 10/12/12 1036 Status: Addendum Discharge Specialist: Vikram Chandra MD (Physician) Related Notes: Original Note by Vikram Chandra MD (Physician) filed at 10/12/12 8994 [facility] Service: Hospitalist Progress Note Pt: Carol Potter AGE/SEX: 47 y.o. male ROOM: [address] [place] [address] : 1965 PCP: [facility] ADMIT DATE: 10/03/2012 TODAY'S DATE: 10/12/2012 [...] by Dr. Meyer. This was created using aniak vein and does not contain any graft [...] mg Intravenous See Admin Instructions vitamin B zrnvceb-Y-avhgd acid 1 tablet Oral Daily Continuous Infusions [...] Lab 10/10/12 0250 PHART -- PO2ART -- [id number] -- [id number] -- BEART 4* Lab 10/10/12 1331 10/10/12 [...] DO Service: (none) Author Type: Physician Filed: 10/12/1281 Date of Service: 10/12/12929 Status: Signed Discharge Specialist: Trevor Escobar DO (Physician) [facility] Service: Infectious Disease Progress Note Hospital [...] mg Intravenous See Admin Instructions vitamin B xbedsin-O-ltftj acid 1 tablet Oral Daily DISCONTD: amlodipine [...] 10/12/12622 Date of Service: 10/12/12622 Status: Signed Discharge Specialist: Yasmin Alberts RPH (Pharmacist) Day 5 Vanco tx No HD today-no Vanco dose to be admin YASMIN ALBERTS 10/12/2012 6:23 AM Sean Willis - 10/11/2012 2:58 PM PDTFormatting of this note might be different from the origi nal. Progress Notes by Sean Solorzano MD at 10/11/12 0751 Author: Sean Solorzano MD Service: Nephrology Author Type: Physician Filed: 10/11/12 3865 Date of Service: 10/11/129 Status: Signed Discharge Specialist: Sean Solorzano MD (Physician) [facility] Service: NEPHROLOGY Progress Note Carol Potter 47 y.o. [id number] male [facility] Hospital Day: LOS: 8 days SUBJECTIVE [...] W/ EGD; Surgeon: John Singleton MD; Location: [facility] ENDOSCOPY; Se rvice: Gastroenterology; Laterality: N/A; Av fistula placement 05/06/2012 Procedure: AV FISTULA; Surgeon: Oskar Meyer MD; Location: [facility] MAIN OR; Service: Vascul ar; Laterality: Left; Left arm possible right Unlisted procedure arthroscopy shoulder rt , ligaments Knee arthroscopy 07/07/2012 Procedure: KNEE - ARTHROSCOPY; Surgeon: Favio Raza MD; Location: [facility] MAIN OR; ervice: Orthopedics; Laterality: Right; After 1530 Catheter removal 07/07/2012 Procedure: DIALYSIS CATHETER REMOVAL; Surgeon: Oskar Meyer MD; Location: [facility]SIDE [place] OCEDURE; Service: General; Laterality: Right; perm cath Dialysis fistula creation 07/07/2012 Procedure: DIALYSIS CATHETER INSERTION; Surgeon: Oskar Meyer MD; Location: [facility] BEDSIDE PROCEDURE; Service: General; Laterality: Left; temporary dialysis catheter Av fistula repair 07/11/2012 Procedure: AV FISTULA GRAFT REPAIR/REVISION; Surgeon: Oskar Meyer MD; Location: [facility] OR; Service: Vascular; Laterality: Left; Superficialization of brachiobasilic fistula and right IJ perm cath insertion Dialysis fistula creation 07/11/2012 Procedure: DIALYSIS CATHETER INSERTION; Surgeon: Oskar Meyer MD; Location: [facility]; Service: Vascular; Laterality: Left; removed dialysis catheter [...] BIOLOGICAL; 2 STEP KIDSUNEMPLOYED BEFORE WORKED AT [employer] ([employer]) IN [place]/ [place] [employer] NONE ETOH QUIT [...] vancomycin 750 mg Intravenous Once vitamin B epcvpne-V-seerf acid 1 tablet Oral Daily DISCONTD: amlodipine [...] Results Component Value Date PTHINTACT 255* 04/02/2012 [id number] <12* 04/02/2012 Lab Results Component Value Date [...] Name: CAROL POTTER Date of : 1965 [facility] Physician: Beny Valencia MD INDICATIONS endocarditis CONCLUSIONS 1. The left ventricle i s moderately dilated. 2. Overall left ventricular systolic function is mild-moderately impai red with, an EF between 40 - 45 %. 3. No vegetation visualized. 4. Etdj-li-qxubyetp mitral r egurgitation is present. 5. There [...] Aortic Valve: No vegetation visualized. Mitral Valve: Wgup-ye-juhegqeh mitral regurgitation is present. Tricuspid Valve: The tricuspid valve appears structurally normal. Trace/Mild (physiologic) regurgitation. Aorta: Ascending aorta, aortic arch and descending thoracic aorta are of normal caliber with no significant atherosclerotic disease. Mass: No m ass visualized. Thrombus: No clot visualized. Pericardium: There is a trivial pericardial ef fusion present. MEASUREMENTS Clinical Care Coordinator: RADHA Authenticated by: Beny Rousseau Report Date/Time: [...] who is dialyzed Saturday and Saturday at [facility] via Left upper extremity pr [...] binders for now. He would benefit from gamb cutter evaluation. Staphylococcus aureus bacteremia with sepsis: getting [...] 110 Date of Service: 10/11/121108 Status: Signed Discharge Specialist: Yasmin Alberts RPH (Pharmacist) Day 4 Vanco tx No dose Vanco today-no HD YASMIN ALBERTS 10/11/2012 11:09 AM Trevor Lockett - 10/11/2012 9:25 AM PDTFormatting of this note might be different from the origina l. Progress Notes by Trevor Escobar DO at 10/11/12 0365 Author: Trevor Escobar DO Service: (none) Author Type: Physician Filed: 10/11/12 1003 Date of Service: 10/11/12 0925 Status: Signed Discharge Specialist: Trevor Escobar DO (Physician) [facility] Service: Infectious Disease Progress Note Hospital [...] vancomycin 750 mg Intravenous Once vitamin B biqiozy-T-ytepy acid 1 tablet Oral Daily DISCONTD: meropenem [...] 0938 Date of Service: 10/11/12920 Status: Signed Discharge Specialist: Vikram Chandra MD (Physician) [facility] Service: Hospitalist Progress Note Pt: Carol Potter AGE/SEX: 47 y.o. male ROOM: 6605/[id number] : 1965 PCP: [facility] ADMIT DATE: 10/03/2012 TODAY'S DATE: 10/11/2012 [...] by Dr. Meyer. This was created using aniak vein and does not contain any graft [...] vancomycin 750 mg Intravenous Once vitamin B yqxaodt-I-jmvxh acid 1 tablet Oral Daily DISCONTD: meropenem [...] Lab 10/10/12 0250 PHART -- PO2ART -- [id number] -- [id number] -- BEART 4* Lab 10/10/12 1331 10/10/12 [...] Notes by Sean Solorzano MD at 10/10/12 9639 Author: Sean Solorzano MD Service: Nephrology Author Type: Physician Filed: 10/10/12 0013 Date of Service: 10/10/122302 Status: Signed Discharge Specialist: Sean Solorzano MD (Physician) [facility] Service: NEPHROLOGY Progress Note Carol Potter 47 y.o. [id number] male [facility] Hospital Day: LOS: 7 days SUBJECTIVE [...] W/ EGD; Surgeon: John Singleton MD; Location: [facility] ENDOSCOPY; Se rvice: Gastroenterology; Laterality: N/A; Av fistula placement 05/06/2012 Procedure: AV FISTULA; Surgeon: Oskar Meyer MD; Location: [facility] MAIN OR; Service: Vascul ar; Laterality: Left; Left arm possible right Unlisted procedure arthroscopy shoulder rt , ligaments Knee arthroscopy 07/07/2012 Procedure: KNEE - ARTHROSCOPY; Surgeon: Favio Raza MD; Location: [facility] MA[facility] OR; [facility]: Orthopedics; Laterality: Right; After 1530 Catheter removal 07/07/2012 Procedure: DIALYSIS CATHETER REMOVAL; Surgeon: Oskar Meyer MD; Location: [facility] [place]; Service: General; Laterality: Right; perm cath Dialysis fistula creation 07/07/2012 Procedure: DIALYSIS CATHETER INSERTION; Surgeon: Oskar Meyer MD; Location: [facility] BEDS[facility] PROCEDURE; Service: General; Laterality: Left; temporary dialysis catheter Av fistula repair 07/11/2012 Procedure: AV FISTULA GRAFT REPAIR/REVISION; Surgeon: Oskar Meyer MD; Location: [facility]; Service: Vascular; Laterality: Left; Superficialization of brachiobasilic fistula and right IJ perm cath insertion Dialysis fistula creation 07/11/2012 Procedure: DIALYSIS CATHETER INSERTION; Surgeon: Oskar Meyer MD; Location: [facility] OR; Service: Vascular; Laterality: Left; [...] BIOLOGICAL; 2 STEP KIDSUNEMPLOYED BEFORE WORKED AT [employer] [place] [employer] NONE ETOH QUIT 15 YEARS AGODRUGS: quit [...] vancomycin 750 mg Intravenous Once vitamin B rrmqklo-L-vpntu acid 1 tablet Oral Daily DISCONTD: meropenem [...] Results Component Value Date PTHINTACT 255* 04/02/2012 [id number] <12* 04/02/2012 Lab Results Component Value Date [...] Name: CAROL POTTER Date of : 1965 [facility] Physician: Beny Valencia MD INDICATIONS endocarditis CONCLUSIONS 1. The left ventricle i s moderately dilated. 2. Overall left ventricular systolic function is mild-moderately impai red with, an EF between 40 - 45 %. 3. No vegetation visualized. 4. Mnlt-ly-jajcgpme mitral r egurgitation is present. 5. There [...] Aortic Valve: No vegetation visualized. Mitral Valve: Lsuz-wp-khugcckh mitral regurgitation is present. Tricuspid Valve: The tricuspid valve appears structurally normal. Trace/Mild (physiologic) regurgitation. Aorta: Ascending aorta, aortic arch and descending thoracic aorta are of normal caliber with no significant atherosclerotic disease. Mass: No m ass visualized. Thrombus: No clot visualized. Pericardium: There is a trivial pericardial ef fusion present. MEASUREMENTS Clinical Care Coordinator: RADHA Authenticated by: Beny Rousseau Report Date/Time: [...] who is dialyzed Saturday and Saturday at [facility] via Left upper extremity pr [...] binders for now. He would benefit from gamb cutter evaluation. C diff colitis: He does not [...] Service: (none) Author Type: Physician Filed: 10/10/12 2423 Date of Service: 10/10/121643 Status: Signed Discharge Specialist: Khanh Rangel MD (Physician) [facility] Service: Hospitalist Progress Note Hospital Day: [...] vancomycin 750 mg Intravenous Once vitamin B vtsjqtu-V-ntqly acid 1 tablet Oral Daily DISCONTD: meropenem [...] Name: CAROL POTTER Date of : 1965 [facility] Physician: Beny Valencia MD INDICATIONS endocarditis CONCLUSIONS 1. The left ventricle i s moderately dilated. 2. Overall left ventricular systolic function is mild-moderately impai red with, an EF between 40 - 45 %. 3. No vegetation visualized. 4. Rivx-bu-nyxbksnk mitral r egurgitation is present. 5. There [...] Aortic Valve: No vegetation visualized. Mitral Valve: Ezgo-zy-jesokqyj mitral regurgitation is present. Tricuspid Valve: The tricuspid valve appears structurally normal. Trace/Mild (physiologic) regurgitation. Aorta: Ascending aorta, aortic arch and descending thoracic aorta are of normal caliber with no significant atherosclerotic disease. Mass: No m ass visualized. Thrombus: No clot visualized. Pericardium: There is a trivial pericardial ef fusion present. MEASUREMENTS Clinical Care Coordinator: RADHA Authenticated by: Beny Rousseau Report Date/Time: [...] Now resolved. Pt is pending discharge to [facility]. Debility; will need e xtensive physical [...] (none) Author Type: Registered Dietitian Filed: 10/10/12 5311 Date of Service: 10/10/121531 Status: Signed Discharge Specialist: Tiana Fontana RD (Registered Dietitimagen) JAVI assessment [...] Progress Notes by Makenna Calvo at 10/10/12 9962 Author: Makenna Calvo Service: (none) Author Type: Credit Reference Clerk Filed: 10/10/12 1349 Date of Service: 10/10/121341 Status: Signed Discharge Specialist: Makenna Calvo (Credit Reference Clerk) CM met with Ophelia Gordon the [facility] RN for marty [phone]... She stated t hat it would be best if CM could try to get pt into [facility] as pt will have to have his dialysis done in [facility] and if pt goes to [facility] it will be hard for arranging transportation... CM also spoke with pts spouse Shyanne [phone], Shyanne has a so n at home [...] voucher for transport on Saturday as the [employer] does not run on Saturday, pt will take grapeMed fusion on Saturday to return. .. CM advised Shyanne to let pt know this plan as pt gets depressed when left at [facility]... Will continue to follow... D/C plan is to attempt to get pt into [facility] in [facility] again closer to D/C ( they w ere full prior attempt). So Overton - 10/10/2012 11:03 AM PDTFormatting of this note might be different from the origin al. Progress Notes by So Nunez PT at 10/10/12 1103 Author: So Nunez PT Service: (none) Author Type: Physical Therapist Filed: 10/10/121102 Date of Service: 10/10/121102 Status: Signed Discharge Specialist: So Nunez PT (Physical Therapist) 10/10/12 110 [...] 10/10/12444 Date of Service: 10/10/12444 Status: Signed Discharge Specialist: Carmina Lara RPH (Pharmacist) Clinical Pharmacy Note: [...] 2211 Date of Service: 10/10/12128 Status: Signed Discharge Specialist: Bhargav Mercado MD (Physician) Rapid assessment team [...] 1736 Date of Service: 10/09/121734 Status: Signed Discharge Specialist: Marivel Ocampo In pts room to assist with adny, pt sedated per dr valencia's orders, pt [...] 10/09/121715 Date of Service: 10/09/121707 Status: Signed Discharge Specialist: Khanh Rangel MD (Physician) [facility] Service: Hospitalist Progress Note Hospital Day: [...] mg Intravenous See Admin Instructions vitamin B kwcdguc-T-glrik acid 1 tablet Oral Daily DISCONTD: clindamycin [...] Notes by Ebenezer Johns PT at 10/09/12 7933 Author: Ebenezer Johns PT Service: (none) Author Type: Physical Therapist Filed: 10/09/12 1454 Date of Service: 10/09/12 145 Status: Signed Discharge Specialist: Ebenezer Johns PT (Physical Therapist) 10/09/12 1056 [...] d while RN cleaned pt by rolling imqq-dr-vauj. Cognition Overall Cognitive Status WFL Orientation Level [...] Date of Service: 10/09/12 1151 Status: Signed Discharge Specialist: Cosmo Soria MD (Physician) PCP is [facility] LOS: 6 days Carol Potter is [...] mg Intravenous See Admin Instructions vitamin B xhhqnxf-G-xzitu acid 1 tablet Oral Daily DISCONTD: clindamycin [...] who is dialyzed Saturday and Saturday at [facility] via Left upper extremity br achio cephalic fistula (last HD was Saturday10/03/12). He is now admitted with C. Difficile colitis and failure to thrive. Hospitalization has been complicated by staph aureus bacteremia. I will continue maintenance HD. Records from [facility] unit Have been reviewed.I s poke [...] binders for now. He would benefit from gamb cutter evaluation. Lab Results Component Value Date URICACID [...] Ruslan Amezquita PTA Service: (none) Author Type: Sizing Sponger Filed: 10/08/12 1225 Date of Service: 10/08/12 1225 Status: Signed Discharge Specialist: Ruslan Amezquita PTA (Sizing Sponger) 10/08/12 1224 PT Last Visit PT Received On 10/08/12 PT Therapy Visit Not available Requires PT Follow Up Unavailable Other Comments Comments pt receiving HD onver quique Transaction, Provider Unknown - 10/08/2012 11:23 AM PDT Progress Notes by Yusra Vallejo RN at 10/08/12 1123 Author: Yusra Vallejo RN Service: (none) Author Type: Registered Nurse Filed: 10/08/12 1126 Date of Service: 10/08/121122 Status: Signed Discharge Specialist: Yusra Vallejo RN (Registered Nurse) Received call [...] Date of Service: 10/08/12 104 Status: Signed Discharge Specialist: Chela Varela RPH (Pharmacist) Clinical Pharmacy Note [...] Date of Service: 10/08/12 1025 Status: Signed Discharge Specialist: Cosmo Soria MD (Physician) PCP is [facility] LOS: 5 days Carol Potter is [...] is seen on HD with HD RN, Jimmei. HEENT: no JVD, non icteric sclera. Cardiovascular: [...] Daily lidocaine metroNIDAZOLE 500 mg Oral Q8H ALSYSA omeprazole 40 mg Oral Daily sevelamer 800 mg Oral TID WC vancomycin 17 mg/kg Intravenous Once vancomycin 750 mg Intravenous Once vitamin B apouxfh-N-vuwfo acid 1 tablet Oral Daily DISCONTD: allopurinol [...] who is dialyzed Saturday and Saturday at [facility] via Left upper extremity br achio cephalic fistula (last HD was Saturday10/03/12). He is now admitted with C. Difficile colitis and failure to thrive. I will continue maintenance HD. Records from [facility] Have been reviewed.I s poke [...] binders for now. He would benefit from gamb cutter evaluation. Lab Results Component Value Date URICACID [...] Date of Service: 10/08/12 1000 Status: Addendum Discharge Specialist: Rowena Araya RN (Registered Nurse) Related Notes: Original Note by Rowena Aidee Marshal, RN (Registered Nurse) filed at 10/08/12 1140 Report given to HARDIK Tyler. Ellie Azevedo MD - 10/08/2012 9:07 AM PDTFormatting of this note might be different from th e original. Progress Notes by Khanh Rangel MD at 10/08/12 0907 Author: Khanh Rangel MD Service: (none) Author Type: Physician Filed: 10/08/12 2154 Date of Service: 10/08/12906 Status: Signed Discharge Specialist: Khanh Rangel MD (Physician) [facility] Service: Hospitalist Progress Note Hospital Day: LOS: 5 days Post-Op Day: * No surgery found * SUBJECTIVE Events Overnight: Eating dinner, denies any complaints. Is aware wanting to go to [facility]. ROS: 12 point ROS reviewed and negative [...] sevelamer 800 mg Oral TID vitamin B vfzihgd-I-wumys acid 1 tablet Oral Daily DISCONTD: allopurinol [...] by Cosmo Soria MD at 10/07/121743 Author: Csomo Soria MD Service: Nephrology Author Type: Physician Filed: 10/07/121746 Date of Service: 10/07/121743 Status: Signed Discharge Specialist: Cosmo Soria MD (Physician) PCP is [facility] LOS: 4 days Carol Potter is [...] sevelamer 800 mg Oral TID vitamin B uvjrsyb-U-eewek acid 1 tablet Oral Daily Continuous Infusions [...] who is dialyzed Saturday and Saturday at [facility] via Left upper extremity br achio cephalic fistula (last HD was Saturday10/03/12). He is not admitted with C. Difficile colitis and failure to thrive. I will continue maintenance HD. Records from [facility] Have been reviewed.I s poke [...] binders for now. He would benefit from gamb cutter evaluation. Lab Results Component Value Date URICACID [...] Notes by Khanh Rangel MD at 10/07/12 1050 Author: Khanh Rangel MD Service: (none) Author Type: Physician Filed: 10/07/121655 Date of Service: 10/07/121637 Status: Signed Discharge Specialist: Khanh Rangel MD (Physician) [facility] Service: Hospitalist Progress Note Hospital Day: [...] 800 mg Oral TID WC vitamin B nnsxshk-J-qvegi acid 1 tablet Oral Daily Continuous Infusions [...] Macho Abraham MS Service: (none) Author Type: Credit Reference Clerk Filed: 10/07/12 4801 Date of Service: 10/07/124 Status: Signed Discharge Specialist: Macho Abraham MS (Credit Reference Clerk) CM spoke with Shyanne, pt's spouse and she is planning on coming to [facility] this afternoon and she reports she can transport pt to [facility] in [place] when discharge. She plans to stay the night if not discharged. onver quique Transaction, Provider Unknown - 10/07/2012 10:51 AM PDT Progress Notes by Ruslan Amezquita PTA at 10/07/12 1051 Author: Ruslan Amezquita PTA Service: (none) Author Type: Sizing Sponger Filed: 10/07/12 1051 Date of Service: 10/07/12 105 Status: Signed Discharge Specialist: Ruslan Amezquita PTA (Sizing Sponger) 10/07/12 1048 PT Last Visit PT Received [...] Macho Abraham MS Service: (none) Author Type: Credit Reference Clerk Filed: 10/07/12 1000 Date of Service: 10/07/1258 Status: Signed Discharge Specialist: Macho Abraham MS (Credit Reference Clerk) Discharge planning update: CM met with pt today, he is agreeable with a discharge to [facility] in [place]. CM to fax orders to [facility] when they become available. Dorene Han MD - 10/06/2012 6:58 PM PDTFormatting of this note might be different from the orig inal. Progress Notes by Dorene Jeffrey MD at 10/06/121857 Author: Dorene Jeffrey MD Service: (none) Author Type: Physician Filed: 10/06/121932 Date of Service: 10/06/121857 Status: Signed Discharge Specialist: Dorene Jeffrey MD (Physician) [facility] Service: Hospitalist Progress Note Hospital Day: [...] placement. Amado sierra has been accepted to [facility] when ready for discharge. Dr. Soria is [...] sevelamer 800 mg Oral TID vitamin B kfzigpy-U-livxm acid 1 tablet Oral Daily DISCONTD: allopurinol [...] massage therapy. Qian ent can transfer to [facility] on acceptance. 4) Anemia of chronic disease [...] Macho Abraham MS Service: (none) Author Type: Credit Reference Clerk Filed: 10/07/12 9192 Date of Service: 10/06/12 160 Status: Addendum Discharge Specialist: Macho Abraham MS (Credit Reference Clerk) Related Notes: Original Note by Macho Abraham MS (Credit Reference Clerk) filed at 10/06/12 5973 CM received call back from [facility] at [facility] and she states they do not have a private room for pt. CM faced inquiry to [facility] to inquire about a private room. Awaiting determina tion. Discharge planning update: [facility] in [place] per Zaki has accepted pt. They can admit p t Saturday or when needed. Cosmo Lang MD - 10/06/2012 2:00 PM PDTFormatting of this note might be different from the or iginal. Progress Notes by Cosmo Soria MD at 10/06/12 1400 Author: Cosmo Soria MD Service: Nephrology Author Type: Physician Filed: 10/06/12 9779 Date of Service: 10/06/12 1400 Status: Signed Discharge Specialist: Cosmo Soria MD (Physician) PCP is [facility] LOS: 3 days Carol Potter is [...] Oral Daily metroNIDAZOLE 500 mg Oral Q8H [facility] omeprazole 40 mg Oral Daily sevelamer 800 mg Oral TID vitamin B ojdzwzh-H-wblxr acid 1 tablet Oral Daily DISCONTD: allopurinol [...] who is dialyzed Saturday and Saturday at [facility] via Left upper extremity br achio cephalic fistula (last HD was Saturday10/03/12). He is not great with C. Difficile colitis and failure to thrive. I will continue maintenance HD. Records from [facility] unit Have been reviewed.I s poke [...] binders for now. He would benefit from gamb cutter evaluation. Lab Results Component Value Date URICACID [...] Notes by Macho Abraham MS at 10/06/12 1243 Author: Macho Abraham MS Service: (none) Author Type: Credit Reference Clerk Filed: 10/06/12 0477 Date of Service: 10/06/12 1241 Status: Addendum Discharge Specialist: Macho Abraham MS (Credit Reference Clerk) Related Notes: Original Note by Macho Abraham MS (Credit Reference Clerk) filed at 10/06/12 4098 RADHA spoke with Santos at [facility] and facility is still making a determination. [facility]'s [facility] to/from dialysis and if [facility] will offer transport assistance. RADHA also shared with Rhondi that [place] and could use Medicaid transportation services too. Transfer forms on chart as ne eded. onver quique Transaction, Provider Unknown - 10/06/2012 10:10 AM PDT Progress Notes by Ruslan Amezquita PTA at 10/06/12 1010 Author: Ruslan Amezquita PTA Service: (none) Author Type: Sizing Sponger Filed: 10/06/12 1011 Date of Service: 10/06/12 1010 Status: Signed Discharge Specialist: Ruslan Amezquita PTA (Sizing Sponger) 10/06/12 1010 PT Last Visit PT Received [...] 10/05/121917 Date of Service: 10/05/121909 Status: Signed Discharge Specialist: Dorene Jeffrey MD (Physician) [facility] Service: Hospitalist Progress Note Hospital Day: [...] 800 mg Oral TID WC vitamin B ziwhggm-C-gjpcr acid 1 tablet Oral Daily Continuous Infusions [...] Ruslan Amezquita PTA Service: (none) Author Type: Sizing Sponger Filed: 10/05/12 1421 Date of Service: 10/05/121420 Status: Signed Discharge Specialist: Ruslan Amezquita PTA (Sizing Sponger) 10/05/12 1419 PT Last Visit PT Received [...] Author: VANDANA Olivia Service: (none) Author Type: Credit Reference Clerk Filed: 10/05/12 1400 Date of Service: 10/05/12 1357 Status: Signed Discharge Specialist: VANDANA Olivia (Credit Reference Clerk) CM met with Pt re dc plan. Pt lives at home with Spouse and 2 adult Son's. He is unable t o ambulate and uses a wheelchair. Family assists with all ADL's. Pt stated he wants to sta rt walking again and that he's been on a "waiting list" for [facility] since last Saturday for rehab. Referral faxed to [facility] by CM for discharge when Pt medically [...] Date of Service: 10/04/12 1641 Status: Signed Discharge Specialist: Dorene Jeffrey MD (Physician) [facility] Service: Hospitalist Progress Note Hospital Day: LOS: 1 day Post-Op Day: * No surgery found * SUBJECTIVE Patient Summary: Patient admitted for failure to thrive. He reports having diarrhea for the last three days, and he has been recently treated for MSSA bacteremia and arthiritis . Events Overnight: patient reports still feeling weak. Was working with physical [place] py, but states that he was in [...] 800 mg Oral TID WC vitamin B wqiwhao-U-ztgme acid 1 tablet Oral Daily Continuous Infusions [...] 1430 Date of Service: 10/04/121427 Status: Signed Discharge Specialist: Kirti Álvarez RN (Registered Nurse) Patient seen today by embroidery cutter for evaluation due to open pressure ulcer [...] wh ich were saturated. Attends changed by GROUND SUPPORT AGENT and primary RN. Patient is on a [...] (none) Author Type: Physical Therapist Filed: 10/04/12 7563 Date of Service: 10/04/121409 Status: Signed Discharge Specialist: So Nunez PT (Physical Therapist) 10/04/12 1410 [...] 1512 Date of Service: 10/04/121409 Status: Signed Discharge Specialist: So Nunez PT (Physical Therapist) 10/04/12 1410 [...] (has necessary equipment) Prior Function Level of [place] Assist with functional mobility;Assist with ADLs;Assist with [...] Notes by Trinidad Coon RPH at 10/04/12 1145 Author: Trinidad Cono RPH Service: (none) Author Type: Pharmacist Filed: 10/04/12 1148 Date of Service: 10/04/121147 Status: Signed Discharge Specialist: Trinidad Coon RPH (Pharmacist) Renal Dosing Monitoring: [...] 10/04/12929 Date of Service: 10/04/12919 Status: Signed Discharge Specialist: Vickie Hernandez RN (Registered Nurse) Report given [...] Performed At | + + + | ACROL POTTER MRI HIP LEFT WO CONTRAST 10/12/2012 [...] | Testing performed | | | at [facility];[address] [place] [address];[place] [address] SPECIAL REQUESTS | | | RAC | | | Testing performed at [facility];[address] [place], [place] [address]ft [facility];[place] [address] | | | CULTURE NO GROWTH IN 5 DAYS. | | | Testing | | | performed at [facility];[address] [place] [address];[place] [address] REPORT STATUS | | | 10/16/2012 FINAL [...] | Testing performed | | | at [facility];[address] [place] [address];[place] [address] SPECIAL REQUESTS | | | RAC | | | Testing performed at [facility];[address] [place] [address];[place] [address] | | | CULTURE NO GROWTH IN 5 DAYS. | | | Testing | | | performed at [facility];[address] [place] [address];[place] [address] REPORT STATUS | | | 10/16/2012 FINAL [...] 45 %. 3. No vegetation visualized. 4. Klym-wm-mtjuzgzx | | | mitral regurgitation is present. [...] vegetation visualized. Mitral | | | Valve: Veck-rx-yqhjzxqc mitral regurgitation is present. Tricuspid | | [...] pericardial effusion | | | present. MEASUREMENTS Clinical Care Coordinator: CM | | | Authenticated by: Beny [...] | | 45 %.3. No vegetation visualized.4. Aose-ga-wokhegbp mitral regurgitation is present.5. | | There [...] | stenosis.Aortic Valve: No vegetation visualized.Mitral Valve: Kxsv-cm-akeyyhuc mitral | | regurgitation is present.Tricuspid Valve: The tricuspid valve appears structurally | | normal. Trace/Mild (physiologic) regurgitation.Aorta: Ascending aorta, aortic arch and | | descending thoracic aorta are of normal caliber with no significant atherosclerotic | | disease.Mass: No mass visualized.Thrombus: No clot visualized.Pericardium: There is a | | trivial pericardial effusion present. MEASUREMENTS Clinical Care Coordinator: | | CMAuthenticated by: Beny Valencia [facility] Date/Time: 10-09-2012 18:41:13 | |Right Atrium: The [...] Valve: No vegetation visualized. | |Mitral Valve: Emdl-oy-lxvpifku mitral regurgitation is present. | |Tricuspid Valve: [...] | |MEASUREMENTS | | | | | |Clinical Care Coordinator: CM | |Authenticated by: Beny Valencia MD [...] | Testing performed | | | at [facility];[address] [place] [address];[place] [address] SPECIAL REQUESTS | | | R4ARM | | | Testing performed at [facility];[address] [place] [address];[place] [address] | | | GRAM STAIN GRAM POSITIVE COCCI | | | CALLED TO BRAYDEN ON | | | 6RP AT [phone] [id number] BY TR READ BACK RESULTS VERIFIED | | | GRAM POSITIVE COCCI AEROBIC BOTTLE | | | CALLED TO LUIS CARLOS | | | S ON 6RP AT [phone] [id number] BY TR READ BACK RESULTS VERIFIED | | | Testing performed at [facility] | | | [facility];[place] [address] CULTURE | | | STAPHYLOCOCCUS AUREUSAbnormal | | | GROWTH IN TWO OF TWO BOTTLESAbnormal | | | TIME TO DETECTION: 0.79 | | | DAYS Testing | | | performed at [facility], [address] [place] [address] | | | REPORT STATUS 10/11/2012 FINAL [...] | Testing performed | | | at [facility];[address] [place] [address];[place] [address] SPECIAL REQUESTS | | | RAC | | | Testing performed at [facility];[address] [place] [address];[place] [address] | | | GRAM STAIN GRAM POSITIVE COCCI | | | SEEN ON SMEAR FROM ANAEROBIC BOTTLE | | | SMEAR RESULTS CALLED TO AND READ BACK BY: KARAN | | | S/6RP AT [phone] BY ND | | | GRAM POSITIVE COCCI AEROBIC BOTTLE | | | CALLED TO LUIS CARLOS Rose ON 6RP AT [phone] [id number] | | | BY TR READ BACK RESULTS VERIFIED | | | Testing performed at [facility];[address] [facility];[place], [place] | | | [address] CULTURE STAPHYLOCOCCUS | | | AUREUS REFER TO CULTURE [id number] COLLECTED THE SAME DAY FOR | | | SUSCEPTIBILITYAbnormal | | | GROWTH IN TWO OF TWO BOTTLESAbnormal | | | TIME TO DETECTION: 0.71 DAYS | | | Testing performed at [facility], [address] | | | [place] [address] REPORT STATUS | | | 10/11/2012 FINAL | | + + + + +---------+ + + | Performing | Address | City/State/[facility] | Phone Number | | Organization [...] | Testing performed | | | at [facility];[address] [place] [address];[place] [address] SPECIAL REQUESTS | | | L ARM | | | Testing performed at [facility];[address] [place] [address];[place] [address] | | | CULTURE NO GROWTH IN 5 DAYS. | | | Testing | | | performed at [facility];[address] [place] [address];[place] [address] REPORT STATUS | | | 10/10/2012 FINAL [...] | Testing performed | | | at [facility];[address] [place] [address];[place] [address] SPECIAL REQUESTS | | | L HAND | | | Testing performed at [facility];[address] [place] [address];[place] [address] | | | CULTURE NO GROWTH IN 5 DAYS. | | | Testing | | | performed at [facility];[address] [place] [address];[place] [address] REPORT STATUS | | | 10/10/2012 FINAL [...] LAB | | C.diffAbnormal Testing performed at [facility];[address] [place] [address];[place], [place] | | | [phone] NAP1 BI 027 NAP1 BI | | | PRESUMPTIVE NEGATIVE Detection of 027 NAP1 BI strains of C. difficile | | | is presumptive and for epidemiological purposes and not intended to | | | guide or monitor treatment for C. difficile infections. Testing | | | performed at [facility];[address] [place] [address];[place] [address] | | + + + + +---------+ [...] disk spaces are normal in height alt kurits mild degenerative changes seen | |at C5-6 [...]
--- OUTSIDE RECORDS SUMMARY | ~2019-05-20 | XMS | Encounter Summary ---
Demographics + + + | Address | [address] | | | [place] [address] | + + + | Home Phone | | + + + | Preferred Language | Unknown | + + + | Marital Status | Unknown | + + + | Christian Affiliation | 1076 | + + + | Race | Unknown | + + + | Ethnic Group | Unknown | + + + Author + + + | Author | [facility] | | | and [place] | + + + | Organization | [facility] | | [...] Providers + +------+ + | Care Hand Ii Blocker Name | Role | Phone | + +------+ + PCP | Unavailable | + +------+ + Encounter Details +--------+ + + + + | Date | Type | Department | Care Team | Description | +--------+ + + + + | 12/09/ | Hospital | [facility] | Conversion | End stage renal | | 2015 | Encounter | CENTER CV INTRA OP | Transaction, | disease (HCC) | | | | [address] | Provider Unknown | | | | | [place], [place] | [phone] | | | | | [address] | | | | | | [phone] | Uriel Thompson, | | | | | | [address] | | | | | | [place], [place] | | | | | | [address] | | | | | | | [...] 12/09/141947 Date of Service: 12/09/141947 Status: Signed Certified Pathology Assistant: Gemini Triplett RN (Registered Nurse) Pt resting [...] 1217 Date of Service: 12/09/141899 Status: Signed Certified Pathology Assistant: Juan Timmons MD (Physician) 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 98187, 11002, 74559, 19190-54, 33749-97 | | | | | + + + + + + | Narrative | Performed At | + + + | [facility] 12/09/2014 7:43 PM [...] conscious sedation | | | and independent fdc supervision performed throughout the | | | [...] | | | needle and exchanged for 4-[place] micropuncture sheath. Initial | | | fistula [...] of the venous | | | lesions. 4-[place] micropuncture sheath was exchanged for 6-[place] | | | short sheath over a [...] Rad Conversion - 02/06/2019 3:01 AM PDT [facility] | | FISTULAGRAM12/09/2014 7:43 PM [...] | | adequate conscious sedation and independent fdc supervision performed | | throughout the procedure. [...] accessed using micropuncture needle and exchanged for 4-[place] micropuncture sheath. | | Initial fistula pressure was obtained and fistulogram obtained from the right cubital | | fossa to the right atrium. Given the focal, preocclusive stenosis in mid arm segment | | the cephalic vein and segmental occlusion of the distal cephalic vein and proximal right | | brachiocephalic vein, I decided to perform angioplasty of the venous lesions. 4-[place]an | | micropuncture sheath was exchanged for 6-[place] short sheath over a 0.035, angled | [...] | vein using balloon angioplasty without incidence. 52740, 99117, 54585, 24194-44, | | 53807-93 | | | | | + + [...] balloon angioplasty without | | | incidence. 17916, 48560, 69012, 57612-61, 21546-39 | | | | | + + + + + + | Narrative | Performed At | + + + | [facility] 12/09/2014 7:43 PM HISTORY: | [...] conscious sedation | | | and independent fdc supervision performed throughout the | | | [...] | | | needle and exchanged for 4-[place] micropuncture sheath. Initial | | | fistula [...] of the venous | | | lesions. 4-[place] micropuncture sheath was exchanged for 6-[place] | | | short sheath over a [...] Palm Conversion - 02/06/2019 3:01 AM PDT [facility] | | FISTULAGRAM12/09/2014 7:43 PM [...] | | adequate conscious sedation and independent fdc supervision performed | | throughout the procedure. [...] accessed using micropuncture needle and exchanged for 4-[place] micropuncture sheath. | | Initial fistula pressure was obtained and fistulogram obtained from the right cubital | | fossa to the right atrium. Given the focal, preocclusive stenosis in mid arm segment | | the cephalic vein and segmental occlusion of the distal cephalic vein and proximal right | | brachiocephalic vein, I decided to perform angioplasty of the venous lesions. 4-[place] | | micropuncture sheath was exchanged for 6-[place] short sheath over a 0.035, angled | [...] | vein using balloon angioplasty without incidence. 38390, 00314, 65226, 51665-61, | | 97523-15 | | | | | + + documented in this encounter Visit Diagnoses + + | Diagnosis | + + | End stage renal disease (HCC) End stage renal disease | + + documented in this encounter"
--- OUTSIDE RECORDS SUMMARY | ~2019-05-20 | XMS | Encounter Summary ---
Demographics + + + | Address | [address] | | | [place] [address] | + + + | Home Phone | | + + + | Preferred Language | Unknown | + + + | Marital Status | Unknown | + + + | Mandaeism Affiliation | 1076 | + + + | Race | Unknown | + + + | Ethnic Group | Unknown | + + + Author + + + | Author | [facility] | | | and [place] | + + + | Organization | [facility] | | [...] Team Providers + +------+ + | Care Window Repairer Name | Role | Phone | + +------+ + PCP | Unavailable | + +------+ + Encounter Details +--------+ + + + + | Date | Type | Department | Care Team | Description | +--------+ + + + + | 11/09/ | Hospital | [facility] | Conversion | End stage renal | | 2014 | Encounter | CENTER CV INTRA OP | Transaction, | disease (HCC); Other | | | | [address] | Provider Unknown | complications due | | | | [place], [place] | [phone] | to other vascular | | | | [address] | | device, implant, and | | | | [phone] | Uriel Sawyer, | graft (HCC) | | | | | [address] | | | | | | [place], [place] | | | | | | [address] | | | | | | | [...] 11/09/132031 Date of Service: 11/09/132030 Status: Signed Meter Tester Polyphase: Tisha Vaughan RN (Registered Nurse) Meets discharge criteria. Right chest site benign with no ooze or hematoma. Discharge instr uctions given to patient and . All questions answered and understanding stated. Transpor gela via wheelchair to [facility] for treatment for K 5.[address] Timmons. onver quique Transaction, Provider Unknown - 11/09/2013 8:20 PM PDT Nurse Progress Note by Tisha Vaughan RN at 11/09/132019 Author: Tisha Vaughan RN Service: (none) Author Type: Registered Nurse Filed: 11/09/132019 Date of Service: 11/09/132019 Status: Signed Meter Tester Polyphase: Tisha Vaughan RN (Registered Nurse) Small amount [...] Successful | | | placement of a 14.5-South Sudanese dual-lumen 19-cm tunneled hemodialysis | | | catheter with its tip in the upper portion of the right atrium without | | | incidence. 02065, 63503, 42425 | | + + + + + [...] | vein. 3. Placement of 19 cm, 14.5-[place]ese dual-lumen tunneled | | | palindrome hemodialysis [...] records. 3. Upper chest radiograph shows dual-lumen, 14.5-South Sudanese, | | | 19-cm, tunneled dialysis catheter [...] | micropuncture needle and exchanged for a 4-[place]ese micropuncture sheath | | | over a 0.018 wire. Skin in the infraclavicular region was | | | infiltrated with 1% lidocaine and a 5-mm skin incision was made. A | | | 14.5-[place]ese, dual-lumen, 19-cm tunneled hemodialysis catheter was | | | placed a subcutaneous tunnel using a metallic tunneler. The 4-South Sudanese | | | sheath was exchanged for a 0.035, 3-mm J-wire with its tip in the | | | right atrium under fluoroscopy guidance. The skin and subcutaneous | | | tract was dilated using at 12 and 14-South Sudanese facial dilators. A | | | 15-South Sudanese peel-away sheath was placed over the wire [...] external jugular vein.3. Placement of 19 cm, 14.5-[place]ese dual-lumen | | tunneled palindrome hemodialysis catheter [...] | | Upper chest radiograph shows dual-lumen, 14.5-South [place]ese, 19-cm, tunneled dialysis catheter | | with [...] a micropuncture needle and exchanged for a 4-[place]ese micropuncture sheath over a | | 0.018 wire. Skin in the infraclavicular region was infiltrated with 1% lidocaine and a | | 5-mm skin incision was made. A 14.5-[place]ese, dual-lumen, 19-cm tunneled hemodialysis | | catheter was placed a subcutaneous tunnel using a metallic tunneler. The 4-South Sudanese | | sheath was exchanged for a 0.035, 3-mm J-wire with its tip in the right atrium under | | fluoroscopy guidance. The skin and subcutaneous tract was dilated using at 12 and | | 14-[place]ese facial dilators. A 15-South Sudanese peel-away sheath was placed over the wire [...] veins.2. | | Successful placement of a 14.5-[place]ese dual-lumen 19-cm tunneled hemodialysis catheter | | with its tip in the upper portion of the right atrium without incidence. 17196, 03354, | | 89164 | |IMPRESSION: | | | |1. Sonography of the lower neck veins. | |2. Successful placement of a 14.5-[place]ese dual-lumen 19-cm tunneled hemodialysis catheter w ith its tip in the upper portion of the right atrium without incidence. | | | |07463, 32285, 48272 | | | | | + + US Guided Vascular Access (11/09/2013 7:36 PM PDT) + + | Specimen | + + | | + + + + + | Impressions | Performed At | + + + | 1. Sonography of the lower neck veins. 2. Successful | | | placement of a 14.5-South Sudanese dual-lumen 19-cm tunneled hemodialysis | | | catheter with its tip in the upper portion of the right atrium without | | | incidence. 68033, 07947, 53996 | | + + + + + [...] | vein. 3. Placement of 19 cm, 14.5-South Sudanese dual-lumen tunneled | | | palindrome hemodialysis [...] records. 3. Upper chest radiograph shows dual-lumen, 14.5-South Sudanese, | | | 19-cm, tunneled dialysis catheter [...] | micropuncture needle and exchanged for a 4-South Sudanese micropuncture sheath | | | over a 0.018 wire. Skin in the infraclavicular region was | | | infiltrated with 1% lidocaine and a 5-mm skin incision was made. A | | | 14.5-South Sudanese, dual-lumen, 19-cm tunneled hemodialysis catheter was | | | placed a subcutaneous tunnel using a metallic tunneler. The 4-South Sudanese | | | sheath was exchanged for a 0.035, 3-mm J-wire with its tip in the | | | right atrium under fluoroscopy guidance. The skin and subcutaneous | | | tract was dilated using at 12 and 14-South Sudanese facial dilators. A | | | 15-South Sudanese peel-away sheath was placed over the wire [...] external jugular vein.3. Placement of 19 cm, 14.5-South Sudanese dual-lumen | | tunneled palindrome hemodialysis catheter [...] | | Upper chest radiograph shows dual-lumen, 14.5-[place]ese, 19-cm, tunneled dialysis catheter | | with [...] a micropuncture needle and exchanged for a 4-[place]ese micropuncture sheath over a | | 0.018 wire. Skin in the infraclavicular region was infiltrated with 1% lidocaine and a | | 5-mm skin incision was made. A 14.5-[place]ese, dual-lumen, 19-cm tunneled hemodialysis | | catheter was placed a subcutaneous tunnel using a metallic tunneler. The 4-[place]ese | | sheath was exchanged for a 0.035, 3-mm J-wire with its tip in the right atrium under | | fluoroscopy guidance. The skin and subcutaneous tract was dilated using at 12 and | | 14-[place]ese facial dilators. A 15-South Sudanese peel-away sheath was placed over the wire [...] veins.2. | | Successful placement of a 14.5-[place] Sudanese dual-lumen 19-cm tunneled hemodialysis catheter | | with its tip in the upper portion of the right atrium without incidence. 16910, 30772, | | 91672 | |IMPRESSION: | | | |1. Sonography of the lower neck veins. | |2. Successful placement of a 14.5-[place] Sudanese dual-lumen 19-cm tunneled hemodialysis catheter w ith its tip in the upper portion of the right atrium without incidence. | | | |77608, 09979, 50270 | | | | | + + Potassium (11/09/2013 6:30 PM PDT) + + + + + + | Component | Value | Ref Range | Performed | Pathologist | | | | | At | Signature | + + + + + + | K | 5.6 (H)Comment: Testing | 3.5 - 4.9 | EXTERNAL | | | | performed at [facility] | mmol/L | LAB | | | | [place] Jeffrey;[place] | | | | | | [address] | | | | + + + [...] EXTERNAL LAB | | Testing performed at [facility];[address] [place] [address];[place] [address] MRSA PCR | | | NEGATIVE Testing performed at | | | [address];[place] [address] | | + + + + +---------+ [...]
--- OUTSIDE RECORDS SUMMARY | ~2019-05-20 | XMS | Encounter Summary ---
Demographics + + + | Address | [address] | | | [place] [address] | + + + | Home Phone [...] Team Providers + +------+ + | Care Coin Collector Name | Role | Phone | + +------+ + PCP | Unavailable | + +------+ + Encounter Details +--------+ + + + + | Date | Type | Department | Care Team | Description | +--------+ + + + + | 12/29/ | Hospital | [facility] | Conversion | ESRD (end stage | | 2014 | Encounter | CENTER CV INTRA OP | Transaction, | renal disease) (HCC) | | | | [address] | Provider Unknown | | | | | [place], [place] | [phone] | | | | | [address] | | | | | | [phone] | Juan Timmons MD | | | | | | [address] | | | | | | [place] | | | | | | [address] | | | | | | | [...] | in left upper chest for new, 14.5-Indonesian, dual lumen, 27 cm tunneled | | | dialysis catheter over a wire under fluoroscopy guidance without | | | incidence. 80830 upper the uppermost | | + + [...] | under fluoroscopy guidance. New, 27 cm 14.5-Indonesian, dual-lumen | | | tunneled the catheter [...] left upper chest | | | shows 14.5-Indonesian, 27 dual-lumen tunneled dialysis catheter with its [...] cava under fluoroscopy guidance. New, 27 cm 14.5-Indonesian, dual-lumen tunneled the | | catheter was [...] the left upper | | chest shows 14.5-Indonesian, 27 dual-lumen tunneled dialysis catheter with its tip in the | | upper right atrium. IMPRESSION: Successful exchange of the nonfunctioning tunneled | | dialysis catheter in left upper chest for new, 14.5-Indonesian, dual lumen, 27 cm tunneled | | dialysis catheter over a wire under fluoroscopy guidance without incidence. 81755 upper | | the uppermost | | | |IMPRESSION: | |Successful exchange of the nonfunctioning tunneled dialysis catheter in left upper chest fo r new, 14.5-Indonesian, dual lumen, 27 cm tunneled dialysis catheter over a wire under fluorosco py guidance without incidence. | | | |39615 upper the uppermost | | | | | + + documented in this encounter Visit Diagnoses + + | Diagnosis | + + | ESRD (end stage renal disease) (HCC) End stage renal disease | + + documented in this encounter
--- OUTSIDE RECORDS SUMMARY | ~2019-05-20 | XMS | Encounter Summary ---
Demographics + + + | Address | [address] | | | [place] [address] | + + + | Home Phone [...] + + + | Author | [facility] | | | and [place] | + + + | Organization | [facility] | [...] Team Providers + +------+ + | Care Lead Miner Blasting Name | Role | Phone | + +------+ + PCP | Unavailable | + +------+ + Encounter Details +--------+ + + + + | Date | Type | Department | Care Team | Description | +--------+ + + + + | 08/07/ | Hospital | [facility] | Conversion | ESRD (end stage | | 2013 | Encounter | [facility] | Transaction, | renal disease) (HCC) | | | | [address] | Provider Unknown | | | | | [place], [place] | [phone] | | | | | [address] | | | | | | [phone] | Juan Timmons MD | | | | | | [address] | | | | | | [place] | | | | | | [address] | | | | | | | [...] (none) Author Type: Registered Nurse Filed: 08/07/12 6019 Date of Service: 08/07/121350 Status: Signed [employer] Coordinator: Malika Norris RN (Registered Nurse) Pt. Vss, [...] this patient in | | | the Manager [employer] holding room. I had a discussion with [...] met this patient | | in the Manager Social [employer] holding room. I had a discussion with [...]
--- OUTSIDE RECORDS SUMMARY | ~2019-05-20 | XMS | Encounter Summary ---
Demographics + + + | Address | [address] | | | [place] [address] | + + + | Home Phone [...] Team Providers + +------+ + | Care Assorter Name | Role | Phone | + +------+ + PCP | Unavailable | + +------+ + Encounter Details +--------+ + + + + | Date | Type | Department | Care Team | Description | +--------+ + + + + | 07/03/ | Hospital | [facility] | | | | 2010 | Encounter | [facility] | | | | | | CONV DEPT [address] | | | | | | Model [place], | | | | | | [place] [address] | | | | | | [phone] | | | +--------+ + + + [...]
--- OUTSIDE RECORDS SUMMARY | ~2019-05-20 | XMS | Encounter Summary ---
Demographics + + + | Address | [address] | | | [place] [address] | + + + | Home Phone [...] Team Providers + +------+ + | Care Delivery Tech Name | Role | Phone | + [...] Unknown | | | | | [facility], [place] | | | | | | [address] | (Fax) | | | | | [phone] | | | +--------+ + + + [...] EXTERNAL LAB | | Testing performed at [facility] [facility];[place] [address] MRSA PCR | | | NEGATIVE Testing performed at | | | [facility];[address] [place] [address];[place] [address] | | + + + + +---------+ [...] | | Patient | performed at [facility];[address] | | LAB | | | | [address];[place] | | | | | | [address] | | | | + + + [...] | performed at [facility] | | | | | | [facility];[place], [place] | | | | | | [address] | | | | + + + [...] | performed at [facility];[address] | | LAB | | | | [address];[place] | | | | | | [address] | | | | + + + + + + | RED CELL | 3.93 (L)Comment: Testing | 4.20 - 5.70 | EXTERNAL | | | COUNT | performed at [facility];[address] | M/uL | LAB | | | | [address];[place] | | | | | | [address] | | | | + + + + + + | Hgb | 12.3 (L)Comment: Testing | 13.2 - 17.0 | EXTERNAL | | | | performed at [facility];[address] | g/dL | LAB | | | | [address];[place] | | | | | | [address] | | | | + + + + + + | Hematocrit, | 36.0 (L)Comment: Testing | 39.0 - 50.0 % | EXTERNAL | | | POC | performed at [facility];[address] | | LAB | | | | [address];[place] | | | | | | [address] | | | | + + + + + + | MCV | 91.7Comment: Testing | 80.0 - 100.0 fl | EXTERNAL | | | | performed at [facility];[address] | | LAB | | | | [address];[place] | | | | | | [address] | | | | + + + + + + | MCH | 31.2Comment: Testing | 27.0 - 34.0 pg | EXTERNAL | | | | performed at [facility];[address] | | LAB | | | | [address];[place] | | | | | | [address] | | | | + + + + + + | MCHC | 34.1Comment: Testing | 32.0 - 35.5 | EXTERNAL | | | | performed at [facility];[address] | g/dL | LAB | | | | [address];[place] | | | | | | [address] | | | | + + + + + + | RDW-CV | 49.4Comment: Testing | 37 - 53 fl | EXTERNAL | | | | performed at [facility];[address] | | LAB | | | | [address];[place] | | | | | | [address] | | | | + + + + + + | Platelet | 249Comment: Testing | 150 - 400 K/uL | EXTERNAL | | | Count | performed at [facility];[address] | | LAB | | | Plasma | [address];[place] | | | | | | [address] | | | | + + + + + + | MPV | 6.7Comment: Testing | fl | EXTERNAL | | | | performed at [facility];[address] | | LAB | | | | [address];[place] | | | | | | [address] | | | | + + + + + + | Differentia | AUTOMATEDComment: | | EXTERNAL | | | l Type | Testing performed at | | LAB | | | | [facility];[address];[place] [address] | | | | + + + + + + | % Segmented | 67.3Comment: Testing | % | EXTERNAL | | | | performed at [facility];[address] | | LAB | | | Neutrophils | [address];[place] | | | | | | [address] | | | | + + + + + + | % | 15.7Comment: Testing | % | EXTERNAL | | | Lymphocytes | performed at [facility];[address] | | LAB | | | | [address];[place] | | | | | | [address] | | | | + + + + + + | % Monocytes | 9.9Comment: Testing | % | EXTERNAL | | | | performed at [facility];[address] | | LAB | | | | [address];[place] | | | | | | [address] | | | | + + + + + + | % | 6.7Comment: Testing | % | EXTERNAL | | | Eosinophils | performed at [facility];[address] | | LAB | | | | [address];[place] | | | | | | [address] | | | | + + + + + + | % Basophils | 0.4Comment: Testing | % | EXTERNAL | | | | performed at [facility];[address] | | LAB | | | | [address];[place] | | | | | | [address] | | | | + + + + + + | Absolute | 4.2Comment: Testing | 1.9 - 7.4 K/uL | EXTERNAL | | | Segmented | performed at [facility];[address] | | LAB | | | Neutrophils | [address];[place] | | | | | | [address] | | | | + + + + + + | Absolute | 1.0Comment: Testing | 1.0 - 3.9 K/uL | EXTERNAL | | | Lymphocytes | performed at [facility];[address] | | LAB | | | | [address];[place] | | | | | | [address] | | | | + + + + + + | Absolute | 0.6Comment: Testing | 0 - 0.8 K/uL | EXTERNAL | | | Monocytes | performed at [facility];[address] | | LAB | | | | [address];[place] | | | | | | [address] | | | | + + + + + + | Absolute | 0.4Comment: Testing | 0 - 0.5 K/uL | EXTERNAL | | | Eosinophils | performed at [facility];[address] | | LAB | | | | [address];[place] | | | | | | [address] | | | | + + + + + + | Absolute | 0.0Comment: Testing | 0 - 0.1 K/uL | EXTERNAL | | | Basophils | performed at [facility];[address] | | LAB | | | | [address];[place] | | | | | | [address] | | | | + + + [...] | performed at [facility];[address] | mmol/L | LAB | | | | [address];[place] | | | | | | [address] | | | | + + + + + + | K | 3.7Comment: Testing | 3.5 - 4.9 | EXTERNAL | | | | performed at [facility];[address] | mmol/L | LAB | | | | [address];[place] | | | | | | [address] | | | | + + + + + + | Cl | 96 (L)Comment: Testing | 99 - 109 mmol/L | EXTERNAL | | | | performed at [facility];[address] | | LAB | | | | [address];[place] | | | | | | [address] | | | | + + + + + + | CO2 | 35 (H)Comment: Testing | 23 - 32 mmol/L | EXTERNAL | | | | performed at [facility];[address] | | LAB | | | | [address];[place] | | | | | | [address] | | | | + + + + + + | Anion Gap | 11Comment: Testing | 5 - 20 mmol/L | EXTERNAL | | | | performed at [facility];[address] | | LAB | | | | [address];[place] | | | | | | [address] | | | | + + + + + + | Glucose, | 176 (H)Comment: Testing | 65 - 99 mg/dL | EXTERNAL | | | Fasting | performed at [facility];[address] | | LAB | | | | [address];[place] | | | | | | [address] | | | | + + + + + + | BUN | 12Comment: Testing | 8 - 25 mg/dL | EXTERNAL | | | | performed at [facility];[address] | | LAB | | | | [address];[place] | | | | | | [address] | | | | + + + + + + | Creatinine | 4.53 (H)Comment: Testing | 0.70 - 1.30 | EXTERNAL | | | | performed at [facility];[address] | mg/dL | LAB | | | | [address];[place] | | | | | | [address] | | | | + + + + + + | BUN/Creatin | 3Comment: Testing | | EXTERNAL | | | ine Ratio | performed at [facility];[address] | | LAB | | | | [address];[place] | | | | | | [address] | | | | + + + + + + | Calcium | 8.2 (L)Comment: Testing | 8.5 - 10.2 | EXTERNAL | | | | performed at [facility];[address] | mg/dL | LAB | | | | [address];[place] | | | | | | [address] | | | | + + + [...] | | | | | at [facility];[address] [place] [address] | | | | | | [facility];[place] [address] | | | | + + + [...]
--- OUTSIDE RECORDS SUMMARY | ~2019-05-20 | XMS | Encounter Summary ---
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 cultures from [facility] in [place] are now reported as positive for MSSA. Bloo d cultures on admission are now also positive. He has been seen by Dr. Schultz from Orthopedics with arthrocentesis carried out at R knee and L ankle joints. Finding consistent with gouty arthritis for both joints. There is sept ic arthritis also of the R knee. RONY done with no signs of endocarditis. Prior tunneled R IJ HD catheter removed, catheter tip sent for culture and non-tunneled HD catheter placed.. Washout of R knee done on 07/07. Events Overnight: planned for d/c Either today or tomorrow. No Complaints of nausea vo miting or diarrhea.no skin rash. Alert and cheerful this morning Scheduled Medications allopurinol 100 mg Oral Daily aspirin 81 mg Oral Daily with breakfast carvedilol 3.125 mg Oral BID WC citalopram 20 mg Oral Nightly heparin (porcine) Intracatheter QMWF heparin (porcine) 1,000 Units Intravenous QMWF heparin (porcine) 5,000 Units Subcutaneous Q8H heparin (porcine) 500 Units Intravenous QMWF insulin aspart 0-3 Units Subcutaneous Nightly insulin aspart 0-6 Units Subcutaneous TID AC levothyroxine 75 mcg Oral Nightly omeprazole 40 mg Oral QAM AC sevelamer 800 mg Oral TID WC simvastatin 10 mg Oral Nightly sodium chloride 10 mL Intravenous Q8H vancomycin 750 mg Intravenous See Admin Instructions vitamin B uzazrym-Y-smrwc acid 1 tablet Oral Daily with breakfast Continuous Infusions dextrose PRN Medications acetaminophen, acetaminophen, albumin human, albuterol, ALPRAZolam, chlorhexidine, dextrose , dextrose, dextrose, glucagon, glucagon, hydrALAZINE, HYDROcodone-acetaminophen, insulin as part, nitroGLYCERIN, ondansetron, ondansetron, polyethylene glycol OBJECTIVE Vital Signs: BP 177/79 | Pulse 79 | Temp(Src) 98.1 F (36.7 C) (Oral) | Resp 18 | Ht 1.702 m (5' 7") | Wt 76.2 kg (167 lb 15.9 oz) | BMI 26.31 kg/m2 | SpO2 100% Temp: [97.9 F (36.6 C)-98.2 F (36.8 C)] 98.1 F (36.7 C) (07/13 751) BP: (136-177)/(63-84) 177/79 mmHg (07/13 751) Heart Rate: [69-89] 79 (07/13 751) Resp: [18-20] 18 (07/13 751) SpO2: [100 %] 100 % (07/13 751) Weight: [76.2 kg (167 lb 15.9 oz)] 76.2 kg (167 lb 15.9 oz) (07/13 040) Physical Exam Nursing note and vitals reviewed. Constitutional: He is oriented to person, place, and time. No distress. Mouth/Throat: Oropharynx is clear and moist. Eyes: Conjunctivae and EOM are normal.no discharge. Neck: Neck supple. Left neck temporary HD catheter Removed. Permanent catheter placed le ft side. Abdominal: Soft. There is no tenderness. Musculoskeletal: no significant tenderness or warmth over the knee. R knee - dressings dry and intact Neurological: He is alert and oriented to person, place, and time. Skin: Skin is dry. Old scars; excoriations mostly on extremities DATA CBC: Lab Results Component Value Date WBC 12.4* 07/11/2012 RBC 3.32* 07/11/2012 HGB 10.3* 07/11/2012 HCT 30.4* 07/11/2012 MCV 91.6 07/11/2012 MCH 31.2 07/11/2012 MCHC 34.0 07/11/2012 RDW 53.8* 07/11/2012 PLT 371 07/11/2012 MPV 7.3 07/11/2012 DIFFTYPE AUTOMATED 07/11/2012 WBC: Lab Results Component Value Date WBC 12.4* 07/11/2012 NEUTABSMAN 19.7* 07/06/2012 NEUTROABS 10.5* 07/11/2012 NEUTROMAN 84* 07/06/2012 LYMPHOABS 1.4 07/06/2012 LYMPHOMAN 6* 07/06/2012 LYMPHSABS 0.5* 07/11/2012 LYMPHOPCT 4.4* 07/11/2012 MONOABSMAN 1.2* 07/06/2012 MONOMAN 5 07/06/2012 MONOPCT 6.6 07/11/2012 EOSINOABS 0.2 07/06/2012 EOSINOMAN 1 07/06/2012 EOSABS 0.4 07/11/2012 EOSPCT 3.5 07/11/2012 BASOABSMAN 0.1 05/01/2012 BASOSABS 0.1 07/11/2012 BASOSMAN 1 05/01/2012 BASOPCT 0.6 07/11/2012 PLTEST ADEQUATE 07/07/2012 BANDSPCT 2 07/06/2012 NRBC 1* 05/02/2012 METAABS 0.5* 07/06/2012 METAPCT 2* 07/06/2012 RBCMORPH NORMAL 07/08/2012 COMDIFF SLIDE SCANNED, AGREES WITH AUTOMATED RESULTS. 07/08/2012 CMP: Lab Results Component Value Date NA 132* 07/11/2012 K 3.9 07/11/2012 CL 100 07/11/2012 CO2 23 07/11/2012 ANIONGAP 13 07/11/2012 GLUF 121* 07/11/2012 BUN 33* 07/11/2012 CREATININE 5.13* 07/11/2012 BCR 6 07/11/2012 CA 7.8* 07/11/2012 CA 6.1* 04/02/2012 PROT 6.4 07/07/2012 ALB 1.3* 07/08/2012 GLOB 5.0* 07/07/2012 BILITOT 0.6 07/07/2012 ALP 196* 07/07/2012 AST 29 07/07/2012 ALT 10 07/07/2012 EGFR 13* 07/11/2012 PROBLEM LIST Principal Problem: *Bacteremia due to Staphylococcus Active Problems: Type II or unspecified type diabetes mellitus without mention of complication, not stated as uncontrolled Hypothyroidism Hypoalbuminemia Diabetes mellitus with ESRD (end-stage renal disease) Hypokalemia HTN (hypertension) ESRD (end stage renal disease) on dialysis Febrile illness, acute Anemia of chronic kidney failure SIRS due to infectious process with acute organ dysfunction Blind left eye Gout Chest pain Hip pain, bilateral Knee pain, right Bilateral ankle pain Septic arthritis of knee, right Hyponatremia ASSESSMENT & PLAN MSSA bacteremia - Most likely secondary to HD catheter infection. This has been removed and a new catheter pl aced in the left chest now. In interim temporary catheter was placed while patient was on antibiotics. He has also had a superficial ligation of the left AV fistula done during hospitalization. RONY Was done and was negative R knee septic arthritis - MSSA. Appreciate Orthopedic intervention; s/p washout. Anticipate 8 weeks of IV antibiotic therapy with hemodialysis; Penicillin allergy described as anaphylaxis Gouty arthritis DM ESRD on hemodialysis Left eye decreased vision - Ophthalmology will see him as outpatient OPAT Orders written up. 8 weeks of IV vancomycin Post dialysis from 07/08 Confirmation of IV antibiotics arrangement at place of dialysis before discharge. Code Status: Full Code Kisha Tello MD 07/13/2012 onversyovany romo Transaction, Provider Unknown - 07/13/2012 8:25 AM PSTFormatting of this note might be di fferent from the original. Progress Notes by Ambika Hanson RPH at 07/13/12824 Author: Ambika Hanson RPH Service: (none) Author Type: Pharmacist Filed: 07/13/12824 Date of Service: 07/13/12824 Status: Signed Ged Tutor: Ambika Hanson RPH (Pharmacist) Day 7 Vancomycin No HD due today. No dose due. Al Zavala DO - 07/12/2012 3:38 PM PSTFormatting of this note might be different from the betina givivian. Progress Notes by Al Coon DO at 07/12/12 1538 Author: Al Coon DO Service: (none) Author Type: Physician Filed: 07/12/12 1540 Date of Service: 07/12/121537 Status: Signed Ged Tutor: Al Coon DO (Physician) [facility] Service: Hospitalist Progress Note Hospital Day: LOS: 6 days Post-Op Day: 1 Day Post-Op SUBJECTIVE Patient seen/examined,resting, had his procedures yesterday and feels fine today, no issues at present. Scheduled Medications allopurinol 100 mg Oral Daily aspirin 81 mg Oral Daily with breakfast bupivacaine carvedilol 3.125 mg Oral BID WC citalopram 20 mg Oral Nightly fentaNYL heparin (porcine) Intracatheter QMWF heparin (porcine) heparin (porcine) heparin (porcine) heparin (porcine) 1,000 Units Intravenous QMWF heparin (porcine) 5,000 Units Subcutaneous Q8H heparin (porcine) 500 Units Intravenous QMWF insulin aspart 0-3 Units Subcutaneous Nightly insulin aspart 0-6 Units Subcutaneous TID AC insulin aspart 14 Units Subcutaneous Once insulin aspart 16 Units Subcutaneous Once levothyroxine 75 mcg Oral Nightly lidocaine meperidine 25 mg Intravenous Once midazolam omeprazole 40 mg Oral QAM AC sevelamer 800 mg Oral TID WC simvastatin 10 mg Oral Nightly sodium chloride 10 mL Intravenous Q8H vancomycin 750 mg Intravenous See Admin Instructions vitamin B jbavhrd-D-ijddf acid 1 tablet Oral Daily with breakfast Continuous Infusions dextrose DISCONTD: sodium chloride PRN Medications acetaminophen, acetaminophen, albumin human, albuterol, ALPRAZolam, chlorhexidine, dextrose , dextrose, dextrose, glucagon, glucagon, hydrALAZINE, HYDROcodone-acetaminophen, insulin as part, meperidine, nitroGLYCERIN, ondansetron, ondansetron, polyethylene glycol, DISCONTD: dr gaspar, DISCONTD: fentaNYL, DISCONTD: fentaNYL, DISCONTD: heparin (porcine), DISCONTD: mor phine, DISCONTD: morphine, DISCONTD: naloxone, DISCONTD: ondansetron OBJECTIVE Vital Signs: BP 159/84 | Pulse 69 | Temp(Src) 98 F (36.7 C) (Oral) | Resp 20 | Ht 1.702 m (5' 7") | Wt 76.9 kg (169 lb 8.5 oz) | BMI 26.55 kg/m2 | SpO2 100% Patient Vitals for the past 24 hrs: BP Temp Temp src Pulse Resp SpO2 Weight 07/12/12 1145 159/84 mmHg 98 F (36.7 C) Oral 69 20 100 % - 07/12/12 0741 143/69 mmHg 97.7 F (36.5 C) Oral 78 18 100 % - 07/12/12 0424 126/58 mmHg 97.4 F (36.3 C) Temporal 84 18 98 % 76.9 kg (169 lb 8.5 oz) 07/12/12 0000 131/61 mmHg 97.9 F (36.6 C) Temporal 78 16 100 % - 07/11/122056 - - - 93 16 99 % - 07/11/12 1900 142/73 mmHg 97.6 F (36.4 C) Oral 85 16 100 % - 07/11/12 1810 148/68 mmHg - - 80 12 100 % - 07/11/12 1805 153/69 mmHg - - 78 12 100 % - 07/11/12 1800 151/71 mmHg 97.9 F (36.6 C) Temporal 78 14 100 % - 07/11/12 1755 157/73 mmHg - - 76 12 100 % - 07/11/12 1750 164/76 mmHg - - 78 12 100 % - 07/11/12 1745 164/78 mmHg - - 78 13 100 % - 07/11/12 1740 164/77 mmHg - - 80 13 100 % - 07/11/12 1735 159/74 mmHg - - 74 14 100 % - 07/11/12 1730 160/71 mmHg 98.1 F (36.7 C) Temporal 74 14 100 % - 07/11/12 1725 160/70 mmHg - - 72 16 100 % - 07/11/12 1720 163/72 mmHg - - 72 14 100 % - 07/11/12 1715 159/74 mmHg - - 74 16 100 % - 07/11/12 1710 150/70 mmHg - - 74 14 100 % - 07/11/12 1705 136/66 mmHg - - 72 12 100 % - 07/11/12 1701 113/69 mmHg - - 72 14 100 % - 07/11/12 1700 127/64 mmHg 97.9 F (36.6 C) Temporal 73 14 100 % - Physical Exam Vitals reviewed. Constitutional: He is oriented to person, place, and time. He appears well-developed and we ll-nourished. No distress. HENT: Head: Normocephalic and atraumatic. Mouth/Throat: Oropharynx is clear and moist. Eyes: Conjunctivae are normal. No scleral icterus. Neck: Normal range of [...] dry. He is not diaphoretic. No erythema. No pallor. Psychiatric: He has a normal mood and affect. His behavior is normal. Judgment and thought content normal. DATA CBC: Lab Results Component Value Date WBC 12.4* 07/11/2012 RBC 3.32* 07/11/2012 HGB 10.3* 07/11/2012 HCT 30.4* 07/11/2012 MCV 91.6 07/11/2012 MCH 31.2 07/11/2012 MCHC 34.0 07/11/2012 RDW 53.8* 07/11/2012 PLT 371 07/11/2012 MPV 7.3 07/11/2012 DIFFTYPE AUTOMATED 07/11/2012 CMP: Lab Results Component Value Date NA 132* 07/11/2012 K 3.9 07/11/2012 CL 100 07/11/2012 CO2 23 07/11/2012 ANIONGAP 13 07/11/2012 GLUF 121* 07/11/2012 BUN 33* 07/11/2012 CREATININE 5.13* 07/11/2012 BCR 6 07/11/2012 CA 7.8* 07/11/2012 CA 6.1* 04/02/2012 PROT 6.4 07/07/2012 ALB 1.3* 07/08/2012 GLOB 5.0* 07/07/2012 BILITOT 0.6 07/07/2012 ALP 196* 07/07/2012 AST 29 07/07/2012 ALT 10 07/07/2012 EGFR 13* 07/11/2012 ECHO RONY [ECHO01] Status: Final result Study Result Patient Name: CAROL POTTER Date of : 1965 Performing Physician: Jayy Heller MD INDICATIONS R/O ENDOCARDITIS CONCLUSIONS 1. Overall left ventricular systolic function is normal with, an EF between 60 - 65 %. 2. No vegetation visualized. FINDINGS -------- Procedure: Transesophageal echocardiogram with spectral and color flow Doppler was performe d. Procedure: RONY was done at the [facility] in the fasting state. Informed consent was obtained after benefits and risks of the procedure were discussed with the patient including but not limited to the potential for esophageal puncture and . The oropharynx was anesthetized with 1% Hurricane spray. After conscious sedation, the transesophageal probe was advanced and placed in the esophagus and multiple projections of the cardiovascular structures were a cquired and recorded. This was followed by advancement of the probe into the stomach for t ransgastric imaging. Finally, interrogation of the descending aorta and arch was performed. The probe was removed. The patient tolerated the procedure well. There were no immedia te complications. 2 D, pulsed and continuous wave form and color images were interpreted i n real time. Medications: 4 mg of Versed and Study quality: This was a technically adequate study. Left Ventricle: The left ventricle size is normal. Left Ventricle: Left Ventricle: Overall left ventricular systolic function is normal with, an EF between 60 - 65 %. Left Atrium: No LA/ OSCAR thrombus. Right Ventricle: The right ventricle is normal in size and function. Right Atrium: The right atrial size is normal. Interatrial Septum: No shunt seen with color Doppler. Interatrial Septum: No shunt seen with bubble study. Aortic Valve: The aortic valve is trileaflet, and appears structurally normal. No aortic st enosis or regurgitation. Aortic Valve: No vegetation visualized. Mitral Valve: The mitral valve is normal. Mitral Valve: There is trace mitral regurgitation. Mitral Valve: No vegetation was seen. Tricuspid Valve: The tricuspid valve appears structurally normal. Trace/Mild (physiologic) regurgitation. Tricuspid Valve: Trace tricuspid regurgitation present. Tricuspid Valve: No vegetation visualized. Pulmonic Valve: The pulmonic valve is normal. Pulmonic Valve: Trace pulmonic regurgitation. Aorta: Ascending aorta, aortic arch and descending thoracic aorta are of normal caliber wit h no significant atherosclerotic disease. Pulmonary Veins: All pulmonary veins appear normal. Pulmonary Veins: The flow patterns, measured by Doppler, appear normal. Pericardium: There is no pericardial effusion. === === Cultures growing MSSA (R to clinda) including catheter tip culture Repeat cultures are negative so far PROBLEM LIST Principal Problem: *Bacteremia due to Staphylococcus Active Problems: Type II or unspecified type diabetes mellitus without mention of complication, not stated as uncontrolled Hypothyroidism Hypoalbuminemia Diabetes mellitus with ESRD (end-stage renal disease) Hypokalemia HTN (hypertension) ESRD (end stage renal disease) on dialysis Febrile illness, acute Anemia of chronic kidney failure SIRS due to infectious process with acute organ dysfunction Blind left eye Gout Chest pain Hip pain, bilateral Knee pain, right Bilateral ankle pain Septic arthritis of knee, right Hyponatremia ASSESSMENT & PLAN Patient Active Hospital Problem List: Bacteremia due to Staphylococcus (07/06/2012) Likely due to seeding of prior dialysis catheter, which has been removed. New tunneled cath eter placed 07/11/12. Continue IV abx / ID recs. Patient is on ESRD, will need careful coordi nation for outpatient continuation of abx, especially with noted lability of his vancomycin levels. He can be discharged (hopefully tomorrow) once the logistics are worked out with yannick e management. Blind left eye (07/06/2012) Could be related to bacteremia, or else vitreous hemorrhage. Discussed with Dr Quiroz. He rec ommends treatment for bacteremia as already is being given, and outpatient follow up. Gout (07/06/2012) Has been on allopurinol off/on in the past. Gave a dose of colchicine, now treating with al lopurinol. Septic Knee, R (07/06/2012) S/p diagnostic arthroscopy. Related to bacteremia as outlined above. Plan as above. Debility Could be an acute component related to septic knee and gout, but for now discharge plan is for patient to go to SNF because of severe debility and low motivation. Disposition: Inpatient - anticipate DC to SNF tomorrow Al oCon DO 07/12/2012 3:38 PM onversion Transaction , Provider Unknown - 07/12/2012 2:41 PM PST Progress Notes by Katrin Mcrae at 07/12/12 1441 Author: Katrin Mcrae Service: (none) Author Type: Program Counselor Filed: 07/12/12 1442 Date of Service: 07/12/12 1441 Status: Signed Ged Tutor: Katrin Mcrae (Registered Nurse) Spoke with Zaki at [facility]-they are ready to accept patient on Saturday. They will arrange f or dialysis on Saturday. CM will need to fax IV abx orders to [facility] as well. onver quique Transaction, Provider Unknown - 07/12/2012 2:12 PM PST Progress Notes by Katrin Mcrae at 07/12/12 1412 Author: Katrin Mcrae Service: (none) Author Type: Program Counselor Filed: 07/12/12 1413 Date of Service: 07/12/12 1412 Status: Signed Ged Tutor: Katrin Mcrae (Registered Nurse) Met with patient at bedside. He agrees that if DC is over the weekend-will go to [facility]. I f DC is on Saturday we will follow up with Shauna. Cosmo Lang MD - 07/12/2012 1:06 PM PSTFormatting of this note might be different from the or iginal. Progress Notes by Cosmo Soria MD at 07/12/12 1306 Author: Cosmo Soria MD Service: Nephrology Author Type: Physician Filed: 07/12/12 1320 Date of Service: 07/12/12 1306 Status: Signed Ged Tutor: Cosmo Soria MD (Physician) PCP is [facility] LOS: 6 days Carol Potter is a 47 y.o. male who is being followed for ESRD management. I took over from Dr. Timmons 07/11/2012. He is admitted with MSSA bacteremia.Blood cultures from [facility] in [place] were rep orted as positive for MSSA. Blood cultures on admission also positive. He has been seen by Dr. Raza from Orthopedics with arthrocentesis carried out at R knee and L ankle joints. Finding consistent with gouty arthritis for both joints. There is septi c arthritis also of the R knee. RONY done with no signs of endocarditis. Prior tunneled R IJ HD catheter removed, catheter tip sent for culture and non-tunneled HD catheter placed.. Washout of R knee done on 07/07. CONCLUSIONS 1. Overall left ventricular systolic function is normal with, an EF between 60 - 65 %. 2. No vegetation visualized. Treatment team: Dr. Ry Tello Dr[facility] course: 07/11/29 Left brachiocephalic fistula revised. Tunneled hemodialysis catheter placed. PROCEDURE 1. Superficialization of left arm brachiobasilic fistula. 2. Attempted right internal jugular access but right internal jugular was clotted. 3. Removal of left internal jugular dialysis catheter. 4. Placement of left internal jugular PermCath over a wire. Interval history: Carol Potter says that he feels OK today. ROS: No fever, chills sweats. No nausea, vomiting. No rashes or pruritis. No oral pain. ROS: As in History of Present Illness. 7 area ROS was done and was otherwise negative. Examination: Constitutional: Alert awake and oriented HEENT: [...] Multiple target lesions all over his body Hemodialysis access: Left upper extremity brachiocephalic fistula With a drain Left IJ hemodialysis catheter Scheduled Medications allopurinol 100 mg Oral Daily aspirin 81 mg Oral Daily with breakfast bupivacaine carvedilol 3.125 mg Oral BID WC citalopram 20 mg Oral Nightly fentaNYL heparin (porcine) Intracatheter QMWF heparin (porcine) heparin (porcine) heparin (porcine) heparin (porcine) Intracatheter Once in dialysis heparin (porcine) 1,000 Units Intravenous QMWF heparin (porcine) 5,000 Units Subcutaneous Q8H heparin (porcine) 500 Units Intravenous QMWF insulin aspart 0-3 Units Subcutaneous Nightly insulin aspart 0-6 Units Subcutaneous TID AC insulin aspart 14 Units Subcutaneous Once insulin aspart 16 Units Subcutaneous Once levothyroxine 75 mcg Oral Nightly lidocaine meperidine 25 mg Intravenous Once midazolam omeprazole 40 mg Oral QAM AC sevelamer 800 mg Oral TID WC simvastatin 10 mg Oral Nightly sodium chloride 10 mL Intravenous Q8H vancomycin 750 mg Intravenous See Admin Instructions vitamin B bpaqznf-X-lfump acid 1 tablet Oral Daily with breakfast Continuous Infusions dextrose DISCONTD: sodium chloride PRN Medications acetaminophen, acetaminophen, albumin human, albuterol, ALPRAZolam, chlorhexidine, dextrose , dextrose, dextrose, glucagon, glucagon, hydrALAZINE, HYDROcodone-acetaminophen, insulin as part, meperidine, nitroGLYCERIN, ondansetron, ondansetron, polyethylene glycol, DISCONTD: dr gaspar, DISCONTD: fentaNYL, DISCONTD: fentaNYL, DISCONTD: heparin (porcine), DISCONTD: mor phine, DISCONTD: morphine, DISCONTD: naloxone, DISCONTD: ondansetron Allergy: Allergies Allergen Reactions Lisinopril Other (See Comments) "makes me sweat and knocked me out" Penicillins Other (See Comments) unknown Lab Results Component Value Date BUN 33* 07/11/2012 CREATININE 5.13* 07/11/2012 EGFR 13* 07/11/2012 NA 132* 07/11/2012 K 3.9 07/11/2012 CL 100 07/11/2012 CO2 23 07/11/2012 CA 7.8* 07/11/2012 PHOS 7.7* 07/08/2012 MG 1.9 07/07/2012 ALB 1.3* 07/08/2012 HGB 10.3* 07/11/2012 Vital Signs: BP 159/84 | Pulse 69 | Temp(Src) 98 F (36.7 C) (Oral) | Resp 20 | Ht 1.702 m (5' 7") | Wt 76.9 kg (169 lb 8.5 oz) | BMI 26.55 kg/m2 | SpO2 100% I&O Detailed Table: I/O last 3 completed shifts: In: 2375 [P.O.:550; I.V.:225; Other:1600] Out: 3178 [Drains:30; Other:3048; Blood:100] Weight change: 2.7 kg (5 lb 15.2 oz) Hemodynamics Last 24hrs: Principal Problem: *Bacteremia due to Staphylococcus Active Problems: Type II or unspecified type diabetes mellitus without mention of complication, not stated as uncontrolled Hypoalbuminemia Diabetes mellitus with ESRD (end-stage renal disease) Hypokalemia ESRD (end stage renal disease) on dialysis SIRS due to infectious process with acute organ dysfunction Septic arthritis of knee, right Hyponatremia Hypothyroidism HTN (hypertension) Febrile illness, acute Anemia of chronic kidney failure Blind left eye Gout Chest pain Hip pain, bilateral Knee pain, right Bilateral ankle pain Assessment and Recommendations: ESRD Mr. Potter is a 47 y.o. 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 He is now status post placement of hemodialysis catheter and superficialization of left bra chiocephalic fistula. Blood cultures from the are negative. From our standpoint he is ready to be discharged to rehabilitation and he would need to con tinue antibiotics per ID for a total period of 8 weeks. We will continue maintenance hemodialysis Saturday and Saturday. BP: Better controlled. Continue low-dose Coreg. Anemia: I would use ANAYA to keep Hb between 10 and 11. CKD-MBD: Vitamin D deficiency: Secondary hyperparathyroidism: Electrolytes/Acid base balance: Hyponatremia: Gout: Continue PO4 binders (calcium based given hypocalcemia) and PO restricted diet. I would replace K PO to keep between 4 to 4.5 to prevent weakness. Hyponatremia likely reflects volume overload and I would perform UF to achieve optimal BP a nd volume. For acute gout I would continue allopurinol to prevent further flareup. Ongoing sepsis with MSSA bacteremia: RONY is negative for endocarditis. He is penicillin allergic and is on vancomycin for MSSA bacteremia Blood cultures 07/06/2012 MSSA Blood cultures 07/08/2012 No growth Diet should be 1 gm/kg protein, 1 [...] Plan of care was discussed with Dr. Tello. COSMO SORIA MD 07/12/2012 Duyen Gutierrez - 07/12/2012 11:56 AM PST Progress Notes by Duyen Raza MD at 07/12/12 1156 Author: Duyen Raza MD Service: Orthopedic Surgery Author Type: Physician Filed: 07/12/12 1203 Date of Service: 07/12/12 1156 Status: Signed Ged Tutor: Duyen Raza MD (Physician) [facility] Service: Orthopedic Surgery Progress Note Hospital Day: LOS:Hospital Day: 7 Post-Op Day: 5 Day Post-Op status post I&D left knee septic arthritis SUBJECTIVE Patient Summary: Feels much better, alert, communicative. States he was able to walk for a good distance with PT today. No pain in knee. Events Overnight: No acute ortho events OBJECTIVE Vital Signs: Filed Vitals: 07/12/12 1145 BP: 159/84 Pulse: 69 Temp: 98 F (36.7 C) Resp: 20 SpO2: 100% Exam: Dressing clean and dry Knee ROM 0-110 with no pain Minimal residual swelling Calf soft, non tender DATA Lab Results Component Value Date WBC 12.4* 07/11/2012 HGB 10.3* 07/11/2012 HCT 30.4* 07/11/2012 MCV 91.6 07/11/2012 PLT 371 07/11/2012 Final cultures on synovial fluid: 1+ MSSA ASSESSMENT & PLAN Continue PT for ambulation Antibiotics per ID Dressing change in am Will continue to follow DUYEN RAZA MD 07/12/2012 11:57 AM onversion Transacti on, Provider Unknown - 07/12/2012 8:12 AM PSTFormatting of this note might be different fro m the original. Progress Notes by Ambika Hanson RPH at 07/12/12 0812 Author: Ambika Hanson RPH Service: (none) Author Type: Pharmacist Filed: 07/12/12811 Date of Service: 07/12/12811 Status: Signed Ged Tutor: Ambika Hanson RPH (Pharmacist) Day 6 Vancomycin Vancomycin 750mg given during last hour of HD yesterday. No HD scheduled for today, theref ore no dose. Will follow. onver quique Transaction, Provider Unknown - 07/12/2012 2:58 AM PST Progress Notes by Ayde uY RN at 07/12/12257 Author: Ayde Yu RN Service: (none) Author Type: Registered Nurse Filed: 07/12/12309 Date of Service: 07/12/12257 Status: Signed Ged Tutor: Ayde Yu RN (Registered Nurse) Pt blood sugar this evening(2200) was 599mg/dL. MD notified. 16 units of Novolog given per MD. Blood sugar rechecked at 0000. Again blood sugar was elevated at 589mg/dL. MD ordered an additional 14 units of Novolog and instructed RN to recheck sugar navdeep 4 hours. All other VS S. Pt has no c/o at this time. WCTM. onver quique Transaction, Provider Unknown - 07/11/2012 4:31 PM PST Progress Notes by VANDANA Olivia at 07/11/121630 Author: VANDANA Olivia Service: (none) Author Type: Program Counselor Filed: 07/11/128 Date of Service: 07/11/121630 Status: Signed Ged Tutor: VANDANA Olivia (Program Counselor) RADHA spoke with Prisca from [facility] re referral for placement. Prisca stated re ferral was under review and that they would need to find a PCP to follow Pt if he were admit gela to facility. If Pt accepted they would not be able to take him until Saturday. RADHA spoke with Zaki at [facility] who stated they would accept Pt and could take him over the weekend. They will coordinate dialysis with Breana for Saturday. CM attempted to speak with Pt re placement at [facility] and determine transport, but Pt is in PACU following a procedure. Will refer to weekend CM for follow up. Onelia Cuello ae, MD - 07/11/2012 2:23 PM PSTFormatting of this note might be different from the origin al. Progress Notes by Oskar Meyer MD at 07/11/12 1423 Author: Oskar Meyer MD Service: (none) Author Type: Physician Filed: 07/11/12 1424 Date of Service: 07/11/121422 Status: Signed Ged Tutor: Oskar Meyer MD (Physician) Cultures have been negative to date. Will plan on left arm fistula superficialization and placement of new right IJ permacath. PARQ done and consent was obtained. Oskar Meyer MD 07/11/2012 onversion Transrehan, Nik Knight - 07/11/2012 1:56 PM PST Progress Notes by VANDANA Olivia at 07/11/12 1356 Author: VANDANA Olivia Service: (none) Author Type: Program Counselor Filed: 07/11/12 1357 Date of Service: 07/11/12 1356 Status: Signed Ged Tutor: VANDANA Olivia (Program Counselor) CM spoke with Prisca at [facility] re SNF referral. Prisca stated she would be a t [facility] by 3:00 PM to evaluate Pt for admission. Al Zavala DO - 07/11/2012 11:39 AM PSTFormatting of this note might be different from the betina givivian. Progress Notes by Al Coon DO at 07/11/12 1117 Author: Al Coon DO Service: (none) Author Type: Physician Filed: 07/11/12 1144 Date of Service: 07/11/12 1139 Status: Signed Ged Tutor: Al Coon DO (Physician) [facility] Service: Hospitalist Progress Note Hospital Day: LOS: 5 days Post-Op Day: 1 Day Post-Op SUBJECTIVE Patient seen/examined,on HD, feels well, no issues at present. Complains of hunger - he's N PO today for procedures. Scheduled Medications allopurinol 100 mg Oral Daily aspirin 81 mg Oral Daily with breakfast citalopram 20 mg Oral Nightly heparin (porcine) Intracatheter QMWF heparin (porcine) 1,000 Units Intravenous QMWF heparin (porcine) 5,000 Units Subcutaneous Q8H heparin (porcine) 500 Units Intravenous QMWF insulin aspart 0-3 Units Subcutaneous Nightly insulin aspart 0-6 Units Subcutaneous TID AC levothyroxine 75 mcg Oral Nightly omeprazole 40 mg Oral QAM AC simvastatin 10 mg Oral Nightly sodium chloride 10 mL Intravenous Q8H vancomycin 750 mg Intravenous See Admin Instructions vitamin B bfkacaq-C-bbcom acid 1 tablet Oral Daily with breakfast Continuous Infusions dextrose PRN Medications acetaminophen, acetaminophen, albumin human, albuterol, ALPRAZolam, chlorhexidine, dextrose , dextrose, dextrose, glucagon, glucagon, hydrALAZINE, HYDROcodone-acetaminophen, insulin as part, nitroGLYCERIN, ondansetron, ondansetron, polyethylene glycol OBJECTIVE Vital Signs: BP 145/69 | Pulse 88 | Temp(Src) 98.3 F (36.8 C) (Oral) | Resp 20 | Ht 1.702 m (5' 7") | Wt 76 kg (167 lb 8.8 oz) | BMI 26.24 kg/m2 | SpO2 99% Patient Vitals for the past 24 hrs: BP Temp Temp src Pulse Resp SpO2 Weight 07/11/12 1125 145/69 mmHg - - - - - 76 kg (167 lb 8.8 oz) 07/11/12 1124 145/69 mmHg - - - - - - 07/11/12 0749 168/73 mmHg 98.3 F (36.8 C) Oral 88 20 99 % - 07/11/12 0638 174/78 mmHg - - - - - - 07/11/12 0435 185/83 mmHg 98.3 F (36.8 C) Temporal 80 18 96 % 73.3 kg (161 lb 9.6 oz) 07/11/12 0028 184/84 mmHg 98.4 F (36.9 C) Temporal 86 18 98 % - 07/10/122015 185/88 mmHg 98.5 F (36.9 C) Oral 87 20 100 % - 07/10/12 1602 179/84 mmHg 98.6 F (37 C) Oral 84 18 100 % - 07/10/12 1251 206/88 mmHg 97.6 F (36.4 C) Oral 86 18 100 % - Physical Exam Vitals reviewed. Constitutional: He is oriented to person, place, and time. He appears well-developed and we ll-nourished. No distress. HENT: Head: Normocephalic and atraumatic. Mouth/Throat: Oropharynx is clear and moist. Eyes: Conjunctivae are normal. No scleral icterus. Neck: Normal range of [...] dry. He is not diaphoretic. No erythema. No pallor. Psychiatric: He has a normal mood and affect. His behavior is normal. Judgment and thought content normal. DATA CBC: Lab Results Component Value Date WBC 12.4* 07/11/2012 RBC 3.32* 07/11/2012 HGB 10.3* 07/11/2012 HCT 30.4* 07/11/2012 MCV 91.6 07/11/2012 MCH 31.2 07/11/2012 MCHC 34.0 07/11/2012 RDW 53.8* 07/11/2012 PLT 371 07/11/2012 MPV 7.3 07/11/2012 DIFFTYPE AUTOMATED 07/11/2012 CMP: Lab Results Component Value Date NA 132* 07/11/2012 K 3.9 07/11/2012 CL 100 07/11/2012 CO2 23 07/11/2012 ANIONGAP 13 07/11/2012 GLUF 121* 07/11/2012 BUN 33* 07/11/2012 CREATININE 5.13* 07/11/2012 BCR 6 07/11/2012 CA 7.8* 07/11/2012 CA 6.1* 04/02/2012 PROT 6.4 07/07/2012 ALB 1.3* 07/08/2012 GLOB 5.0* 07/07/2012 BILITOT 0.6 07/07/2012 ALP 196* 07/07/2012 AST 29 07/07/2012 ALT 10 07/07/2012 EGFR 13* 07/11/2012 ECHO RONY [ECHO01] Status: Final result Study Result Patient Name: CAROL POTTER Date of : 1965 Performing Physician: Jayy Heller MD INDICATIONS R/O ENDOCARDITIS CONCLUSIONS 1. Overall left ventricular systolic function is normal with, an EF between 60 - 65 %. 2. No vegetation visualized. FINDINGS -------- Procedure: Transesophageal echocardiogram with spectral and color flow Doppler was performe d. Procedure: RONY was done at the beside in the fasting state. Informed consent was obtained after benefits and risks of the procedure were discussed with the patient including but not limited to the potential for esophageal puncture and . The oropharynx was anesthetized with 1% Hurricane spray. After conscious sedation, the transesophageal probe was advanced and placed in the esophagus and multiple projections of the cardiovascular structures were a cquired and recorded. This was followed by advancement of the probe into the stomach for t ransgastric imaging. Finally, interrogation of the descending aorta and arch was performed. The probe was removed. The patient tolerated the procedure well. There were no immedia te complications. 2 D, pulsed and continuous wave form and color images were interpreted i n real time. Medications: 4 mg of Versed and Study quality: This was a technically adequate study. Left Ventricle: The left ventricle size is normal. Left Ventricle: Left Ventricle: Overall left ventricular systolic function is normal with, an EF between 60 - 65 %. Left Atrium: No LA/ OSCAR thrombus. Right Ventricle: The right ventricle is normal in size and function. Right Atrium: The right atrial size is normal. Interatrial Septum: No shunt seen with color Doppler. Interatrial Septum: No shunt seen with bubble study. Aortic Valve: The aortic valve is trileaflet, and appears structurally normal. No aortic st enosis or regurgitation. Aortic Valve: No vegetation visualized. Mitral Valve: The mitral valve is normal. Mitral Valve: There is trace mitral regurgitation. Mitral Valve: No vegetation was seen. Tricuspid Valve: The tricuspid valve appears structurally normal. Trace/Mild (physiologic) regurgitation. Tricuspid Valve: Trace tricuspid regurgitation present. Tricuspid Valve: No vegetation visualized. Pulmonic Valve: The pulmonic valve is normal. Pulmonic Valve: Trace pulmonic regurgitation. Aorta: Ascending aorta, aortic arch and descending thoracic aorta are of normal caliber wit h no significant atherosclerotic disease. Pulmonary Veins: All pulmonary veins appear normal. Pulmonary Veins: The flow patterns, measured by Doppler, appear normal. Pericardium: There is no pericardial effusion. === === Cultures growing MSSA (R to clinda) including catheter tip culture Repeat cultures are negative so far PROBLEM LIST Principal Problem: *Bacteremia due to Staphylococcus Active Problems: Type II or unspecified type diabetes mellitus without mention of complication, not stated as uncontrolled Hypothyroidism Hypoalbuminemia Diabetes mellitus with ESRD (end-stage renal disease) Hypokalemia ESRD (end stage renal disease) on dialysis Febrile illness, acute Anemia of chronic kidney failure SIRS due to infectious process with acute organ dysfunction Blind left eye Gout Chest pain Hip pain, bilateral Knee pain, right Bilateral ankle pain Septic arthritis of knee, right ASSESSMENT & PLAN Patient Active Hospital Problem List: Bacteremia due to Staphylococcus (07/06/2012) Likely due to seeding of prior dialysis catheter, which has been removed. Continue IV abx / ID recs. Patient is on ESRD, will need careful coordination for outpatient continuation of abx, especially with noted lability of his vancomycin levels. Temporary dialysis catheter is in place currently, anticipate placement of new tunneled HD catheter today, and superficialization of AV fistula. Blind left eye (07/06/2012) Could be related to bacteremia, or else vitreous hemorrhage. Discussed with Dr Quiroz. He rec ommends treatment for bacteremia as already is being given, and outpatient follow up. Gout (07/06/2012) Has been on allopurinol off/on in the past. Gave a dose of colchicine, now treating with al lopurinol. Septic Knee, R (07/06/2012) S/p diagnostic arthroscopy. Related to bacteremia as outlined above. Plan as above. Debility Could be an acute component related to septic knee and gout, but for now discharge plan is for patient to go to SNF because of severe debility and low motivation. Disposition: Inpatient Al Coon DO 07/11/2012 11:40 AM Cosmo Valle MD - 0 07/11/2012 11:30 AM PST Progress Notes by Cosmo Soria MD at 07/11/12 1130 Author: Cosmo Soria MD Service: Nephrology Author Type: Physician Filed: 07/11/12 1213 Date of Service: 07/11/12 1130 Status: Signed Ged Tutor: Cosmo Soria MD (Physician) PCP is [facility] LOS: 5 days Carol Potter is a 47 y.o. male who is being followed for ESRD management. He is admitted with MSSA bacteremia.Blood cultures from [facility] in [place] were rep orted as positive for MSSA. Blood cultures on admission are also positive. He has been seen by Dr. Schultz from Orthopedics with arthrocentesis carried out at R knee and L ankle joints. Finding consistent with gouty arthritis for both joints. There is sept ic arthritis also of the R knee. RONY done with no signs of endocarditis. Prior tunneled R IJ HD catheter removed, catheter tip sent for culture and non-tunneled HD catheter placed.. Washout of R knee done on 07/07. CONCLUSIONS 1. Overall left ventricular systolic function is normal with, an EF between 60 - 65 %. 2. No vegetation visualized. Treatment team: Dr. Ry Tello Interval history: Carol Potter says that he feels OK today. He has been afebrile last 24 hrs.Blood cultures from [facility] in [place] are now rep orted as positive for MSSA. Blood cultures on admission are now also positive. ROS: No fever, chills sweats. No nausea, vomiting. No rashes or pruritis. No oral pain. ROS: As in History of Present Illness. 7 area ROS was done and was otherwise negative. Examination: Constitutional: He is lying flat in bed in no discomfort. He is seen on hemodialysis today with hemodialysis nurse "Markell". HEENT: no JVD, non icteric sclera. Cardiovascular: [...] Multiple bullous lesions all over his body Hemodialysis access: Left upper extremity brachiocephalic fistula which is quite deep Left IJ temporary hemodialysis catheter Scheduled Medications allopurinol 100 mg Oral Daily aspirin 81 mg Oral Daily with breakfast carvedilol 3.125 mg Oral BID WC citalopram 20 mg Oral Nightly heparin (porcine) Intracatheter QMWF heparin (porcine) 1,000 Units Intravenous QMWF heparin (porcine) 5,000 Units Subcutaneous Q8H heparin (porcine) 500 Units Intravenous QMWF insulin aspart 0-3 Units Subcutaneous Nightly insulin aspart 0-6 Units Subcutaneous TID AC levothyroxine 75 mcg Oral Nightly omeprazole 40 mg Oral QAM AC sevelamer 800 mg Oral TID WC simvastatin 10 mg Oral Nightly sodium chloride 10 mL Intravenous Q8H vancomycin 750 mg Intravenous See Admin Instructions vitamin B ucmcggw-Q-wdebu acid 1 tablet Oral Daily with breakfast Continuous Infusions dextrose PRN Medications acetaminophen, acetaminophen, albumin human, albuterol, ALPRAZolam, chlorhexidine, dextrose , dextrose, dextrose, glucagon, glucagon, hydrALAZINE, HYDROcodone-acetaminophen, insulin as part, nitroGLYCERIN, ondansetron, ondansetron, polyethylene glycol Allergy: Allergies Allergen Reactions Lisinopril Other (See Comments) "makes me sweat and knocked me out" Penicillins Other (See Comments) unknown Lab Results Component Value Date BUN 33* 07/11/2012 CREATININE 5.13* 07/11/2012 EGFR 13* 07/11/2012 NA 132* 07/11/2012 K 3.9 07/11/2012 CL 100 07/11/2012 CO2 23 07/11/2012 CA 7.8* 07/11/2012 PHOS 7.7* 07/08/2012 MG 1.9 07/07/2012 ALB 1.3* 07/08/2012 HGB 10.3* 07/11/2012 Vital Signs: BP 168/73 | Pulse 88 | Temp(Src) 98.3 F (36.8 C) (Oral) | Resp 20 | Ht 1.702 m (5' 7") | Wt 73.3 kg (161 lb 9.6 oz) | BMI 25.31 kg/m2 | SpO2 99% I&O Detailed Table: I/O last 3 completed shifts: In: 50 [P.O.:50] Out: 0 Weight change: -0.1 kg (-3.5 oz) Hemodynamics Last 24hrs: Principal Problem: *Bacteremia due to Staphylococcus Active Problems: Type II or unspecified type diabetes mellitus without mention of complication, not stated as uncontrolled Hypoalbuminemia Diabetes mellitus with ESRD (end-stage renal disease) Hypokalemia Hypothyroidism ESRD (end stage renal disease) on dialysis Febrile illness, acute Anemia of chronic kidney failure SIRS due to infectious process with acute organ dysfunction Blind left eye Gout Chest pain Hip pain, bilateral Knee pain, right Bilateral ankle pain Septic arthritis of knee, right Assessment and Recommendations: ESRD Mr. Potter is a 47 y.o. 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 He is going to have superficialization of the left upper extremity arteriovenous fistula an d would need placement of a tunneled dialysis catheter while the fistula matures. [facility] BP: Uncontrolled. Start low dose coreg. Anemia: I would use ANAYA to keep Hb between 10 and 11. CKD-MBD: Vitamin D deficiency: Secondary hyperparathyroidism: Electrolytes/Acid base balance: Hyponatremia: Gout: Continue PO4 binders (calcium based given hypocalcemia) and PO restricted diet. I would replace K PO to keep between 4 to 4.5 to prevent weakness. Hyponatremia likely reflects volume overload and I would perform UF to achieve optimal BP a nd volume. For acute gout I would continue allopurinol to prevent further flareup. Ongoing sepsis with MSSA bacteremia: RONY is negative for endocarditis. He is penicillin allergic and is on vancomycin for MSSA bacteremia Blood cultures 07/06/2012 MSSA Blood cultures 07/08/2012 No growth Diet should be 1 gm/kg protein, 1 [...] monitored strictly. Daily weights should be done. COSMO SORIA MD 07/11/2012 uresh, Kisha Rousseau MD - 07/11/2012 9:13 AM PST Progress Notes by Kisha Tello MD at 07/11/12912 Author: Kisha Tello MD Service: (none) Author Type: Physician Filed: 07/11/12 1017 Date of Service: 07/11/12912 Status: Signed Ged Tutor: Kisha Tello MD (Physician) [facility] Service: Infectious Disease Progress Note Hospital Day: LOS: 5 days Op Day: SUBJECTIVE Patient Summary: 47 y.o. male with significant past medical history of MSSA and Strep tococcus anginosus bacteremia in March,, thought to be either from cutaneous source o r from a LUE IV site. This was treated with IV vancomycin given with HD for about 6 weeks an d briefly with Zyvox. He has a R IJ tunneled HD catheter placed in March. He had a rash in March, thought to be acute suppurative folliculitis/perforating disease. In April , he was hospitalized at [facility] for febrile illness with blood cultures in [facility] not showing gr owth. He presented with a week of joint pains, mostly at his R knee, L ankle and hips with diffic ulty moving because of this. He had swelling of R knee and L ankle. He had fevers but had no chest pain, cough, dyspnea, discomfort at dialysis catheter site, new skin rash, headache or neck stiffness/pain. He states that his vision deteriorated acutely on the left but he c an appreciate light. Blood cultures from [facility] in [place] are now reported as positive for MSSA. Binao d cultures on admission are now also positive. He has been seen by Dr. Schultz from Orthopedics with arthrocentesis carried out at R knee and L ankle joints. Finding consistent with gouty arthritis for both joints. There is sept ic arthritis also of the R knee. RONY done with no signs of endocarditis. Prior tunneled R IJ HD catheter removed, catheter tip sent for culture and non-tunneled HD catheter placed.. Washout of R knee done on 07/07. Events Overnight: planned for d/c to [facility] . No Complaints of nausea vom iting or diarrhea.no skin rash. Alert and cheerful this morning Scheduled Medications allopurinol 100 mg Oral Daily aspirin 81 mg Oral Daily with breakfast citalopram 20 mg Oral Nightly heparin (porcine) Intracatheter QMWF heparin (porcine) 1,000 Units Intravenous QMWF heparin (porcine) 5,000 Units Subcutaneous Q8H heparin (porcine) 500 Units Intravenous QMWF insulin aspart 0-3 Units Subcutaneous Nightly insulin aspart 0-6 Units Subcutaneous TID AC levothyroxine 75 mcg Oral Nightly omeprazole 40 mg Oral QAM AC simvastatin 10 mg Oral Nightly sodium chloride 10 mL Intravenous Q8H vancomycin 750 mg Intravenous See Admin Instructions vitamin B hlzzzhq-C-rmeip acid 1 tablet Oral Daily with breakfast Continuous Infusions dextrose PRN Medications acetaminophen, acetaminophen, albumin human, albuterol, ALPRAZolam, chlorhexidine, dextrose , dextrose, dextrose, glucagon, glucagon, hydrALAZINE, HYDROcodone-acetaminophen, insulin as part, nitroGLYCERIN, ondansetron, ondansetron, polyethylene glycol OBJECTIVE Vital Signs: BP 168/73 | Pulse 88 | Temp(Src) 98.3 F (36.8 C) (Oral) | Resp 20 | Ht 1.702 m (5' 7") | Wt 73.3 kg (161 lb 9.6 oz) | BMI 25.31 kg/m2 | SpO2 99% Temp: [97.6 F (36.4 C)-98.6 F (37 C)] 98.3 F (36.8 C) (07/11 0749) BP: (168-206)/(73-88) 168/73 mmHg (07/11 748) Heart Rate: [80-88] 88 (07/11 748) Resp: [18-20] 20 (07/11 748) SpO2: [96 %-100 %] 99 % (07/11 748) Weight: [73.3 kg (161 lb 9.6 oz)] 73.3 kg (161 lb 9.6 oz) (07/11 434) Physical Exam Nursing note and vitals reviewed. Constitutional: He is oriented to person, place, and time. No distress. Mouth/Throat: Oropharynx is clear and moist. Eyes: Conjunctivae and EOM are normal.no discharge. Neck: Neck supple. Left neck temporary HD catheter site benign Cardiovascular: Normal rate and regular rhythm. No murmur heard. Pulmonary/Chest: Effort normal and breath sounds normal. Abdominal: Soft. Bowel sounds are normal. He exhibits no distension and no mass. There is n o tenderness. Musculoskeletal: no significant tenderness or warmth over the knee. R knee - dressings dry and intact Neurological: He is alert and oriented to person, place, and time. Skin: Skin is dry. Old scars; excoriations mostly on extremities DATA CBC: Lab Results Component Value Date WBC 12.4* 07/11/2012 RBC 3.32* 07/11/2012 HGB 10.3* 07/11/2012 HCT 30.4* 07/11/2012 MCV 91.6 07/11/2012 MCH 31.2 07/11/2012 MCHC 34.0 07/11/2012 RDW 53.8* 07/11/2012 PLT 371 07/11/2012 MPV 7.3 07/11/2012 DIFFTYPE AUTOMATED 07/11/2012 WBC: Lab Results Component Value Date WBC 12.4* 07/11/2012 NEUTABSMAN 19.7* 07/06/2012 NEUTROABS 10.5* 07/11/2012 NEUTROMAN 84* 07/06/2012 LYMPHOABS 1.4 07/06/2012 LYMPHOMAN 6* 07/06/2012 LYMPHSABS 0.5* 07/11/2012 LYMPHOPCT 4.4* 07/11/2012 MONOABSMAN 1.2* 07/06/2012 MONOMAN 5 07/06/2012 MONOPCT 6.6 07/11/2012 EOSINOABS 0.2 07/06/2012 EOSINOMAN 1 07/06/2012 EOSABS 0.4 07/11/2012 EOSPCT 3.5 07/11/2012 BASOABSMAN 0.1 05/01/2012 BASOSABS 0.1 07/11/2012 BASOSMAN 1 05/01/2012 BASOPCT 0.6 07/11/2012 PLTEST ADEQUATE 07/07/2012 BANDSPCT 2 07/06/2012 NRBC 1* 05/02/2012 METAABS 0.5* 07/06/2012 METAPCT 2* 07/06/2012 RBCMORPH NORMAL 07/08/2012 COMDIFF SLIDE SCANNED, AGREES WITH AUTOMATED RESULTS. 07/08/2012 CMP: Lab Results Component Value Date NA 132* 07/11/2012 K 3.9 07/11/2012 CL 100 07/11/2012 CO2 23 07/11/2012 ANIONGAP 13 07/11/2012 GLUF 121* 07/11/2012 BUN 33* 07/11/2012 CREATININE 5.13* 07/11/2012 BCR 6 07/11/2012 CA 7.8* 07/11/2012 CA 6.1* 04/02/2012 PROT 6.4 07/07/2012 ALB 1.3* 07/08/2012 GLOB 5.0* 07/07/2012 BILITOT 0.6 07/07/2012 ALP 196* 07/07/2012 AST 29 07/07/2012 ALT 10 07/07/2012 EGFR 13* 07/11/2012 PROBLEM LIST Principal Problem: *Bacteremia due to Staphylococcus Active Problems: Type II or unspecified type diabetes mellitus without mention of complication, not stated as uncontrolled Hypothyroidism Hypoalbuminemia Diabetes mellitus with ESRD (end-stage renal disease) Hypokalemia ESRD (end stage renal disease) on dialysis Febrile illness, acute Anemia of chronic kidney failure SIRS due to infectious process with acute organ dysfunction Blind left eye Gout Chest pain Hip pain, bilateral Knee pain, right Bilateral ankle pain Septic arthritis of knee, right ASSESSMENT & PLAN MSSA bacteremia - RONY was negative. Most likely secondary to HD catheter infection. R IJ tunneled HD karl ter was removed on 07/07 with catheter tip positive for S aureus. He has a temporary HD karl ter. He most likely had R IJ HD catheter seeded in March, when he had MSSA/S anginos us bacteremia from a LUE IV site followed by R IJ and bilateral cephalic veins DVT. Apprec iate Dr. Meyer's input: Discussed with Nephrology service about superficialization of left br achiobasilic fistula on Saturday if blood cultures from 07/08 with no growth and new right IJ p ermacath at that time will also be placed. R knee septic arthritis - Gram stain previously reported as GNC, but culture now reported to be S aureus. This is most likely will be MSSA. Appreciate Orthopedic intervention; s/p washout. Most likely related to above vs from cutaneous source with patient having had skin rash andskin trauma from scratching his skin History of rash - no note of cellulitis or active lesions currently but patient's skin zee y dry with excoriations. Anticipate 8 weeks of IV antibiotic therapy with hemodialysis; Dosing seems to be erratic at this point with adequate trough levels on 07/09 -last dose 06/24 3. Will need to watch levels closely even upon discharge and administration with HD. Penicillin allergy described as anaphylaxis Gouty arthritis DM ESRD on hemodialysis Left eye decreased vision - Ophthalmology will see him as outpatient Code Status: Full Code Kisha Tello MD 07/11/2012 Hi Farrar - 07/10/2012 9:51 PM PSTFormatting of this note might be different from the origi nal. Progress Notes by Juan Timmons MD at 07/10/122150 Author: Juan Timmons MD Service: Nephrology Author Type: Physician Filed: 08/19/121907 Date of Service: 07/10/122150 Status: Signed Ged Tutor: Juan Timmons MD (Physician) [facility] Service: NEPHROLOGY progress Note Carol Potter 47 y.o. [id number] male [facility] Hospital Day: LOS: 4 days The patient is a 47 y.o. male with significant past medical history of diabetes complicated with end-stage renal disease, on maintenance hemodialysis Saturday, Saturday, Saturday, hypertension, hyperlipidemia, anemia of chronic kidney disease, gout, Admitted with Bacteremia/ fever. Nephrology consulted for evaluation and management of ESRD ONSET CHRONIC severity SEVERE Associated with fluid electrolyte acid base imbalances REQUIRING HD Pateint seen and examined Says feel weak Denies cp, sob, nausea, vomiting, diarrhea, fever, headache, rash, cough, dizziness Discussed with dr meyer plan for tunneled catheter in am as well as superficialization of avf in am Past Medical History Diagnosis Date Hyperlipidemia Hypertension Diabetes mellitus type II Thyroid disease Anemia Abdominal pain, right upper quadrant 04/13/2012 Dialysis patient Chronic kidney disease dialysis GI bleed 04/30/2012 from coumadin Neuromuscular disorder neuropathy Hemodialysis patient Walker as ambulation aid Gout Asthma pt not using inhaler any more, no symptoms DVT (deep venous thrombosis) x3 AV fistula lt arm Knee pain, right 07/06/2012 Past Surgical History Procedure Date Colonoscopy with egd 05/01/2012 Procedure: COLONOSCOPY W/ EGD; Surgeon: John Singleton MD; Location: [facility] ENDOSCOPY; Se rvice: Gastroenterology; Laterality: N/A; Av fistula placement 05/06/2012 Procedure: AV FISTULA; Surgeon: Oskar Meyer MD; Location: [facility] MAIN OR; Service: Vascul ar; Laterality: Left; Left arm possible right Unlisted procedure arthroscopy shoulder rt , ligaments Knee arthroscopy 07/07/2012 Procedure: KNEE - ARTHROSCOPY; Surgeon: Duyen Raza MD; Location: [facility] MAIN OR; S ervice: Orthopedics; Laterality: Right; After 1530 Catheter removal 07/07/2012 Procedure: DIALYSIS CATHETER REMOVAL; Surgeon: Oskar Meyer MD; Location: [facility] BEDSIDE OR OCEDURE; Service: General; Laterality: Right; perm cath Dialysis fistula creation 07/07/2012 Procedure: DIALYSIS CATHETER INSERTION; Surgeon: Oskar Meyer MD; Location: [facility] BEDSIDE PROCEDURE; Service: General; Laterality: Left; temporary dialysis catheter Prescriptions prior to admission Medication Sig Dispense Refill ALBUTEROL IN Inhale 2 puffs into the lungs daily. amlodipine (NORVASC) 10 MG tablet Take 10 mg by mouth nightly. b complex-vitamin c-folic acid (NEPHRO-THU) 0.8 MG TABS Take 1 tablet by mouth daily. Cholecalciferol (VITAMIN D-3 PO) Take 1 tablet by mouth daily. citalopram (CELEXA) 20 MG tablet Take 20 mg by mouth nightly. ergocalciferol (DRISDOL) 56980 UNITS capsule Take 1 capsule by mouth once a week. 3 ca psule 0 levothyroxine (SYNTHROID, LEVOTHROID) 50 MCG tablet Take 50 mcg by mouth daily. omeprazole (PRILOSEC) 40 MG capsule Take 40 mg by mouth nightly. sodium bicarbonate 650 MG tablet Take 1,300 mg by mouth 2 (two) times daily. acyclovir (ZOVIRAX) 400 MG tablet Take 400 mg by mouth 2 (two) times daily. albuterol (PROVENTIL) (2.5 MG/3ML) 0.083% nebulizer solution Take 2.5 mg by nebulizatio n every 6 (six) hours as needed. ALPRAZolam (XANAX) 0.5 MG tablet Take 0.5 mg by mouth nightly as needed. aminocaproic acid (AMICAR) 500 MG tablet Take by mouth every 6 (six) hours. amlodipine (NORVASC) 10 MG tablet Take 10 mg by mouth nightly. calcitRIOL (ROCALTROL) 0.25 MCG capsule Take 0.25 mcg by mouth nightly. citalopram (CELEXA) 20 MG tablet Take 20 mg by mouth nightly. fish oil-omega-3 fatty acids 1000 MG capsule Take 2 g by mouth daily. folic acid-vitamin b complex-vitamin h-xrxnvqyx-fqez (DIALYVITE) 3 MG TABS Take 1 table t by mouth nightly. HYDROcodone-acetaminophen (NORCO) 5-325 MG per tablet Take 1 tablet by mouth every 6 (s ix) hours as needed. May take 1-2 tabs q 4-6 hrs levothyroxine (SYNTHROID, LEVOTHROID) 25 MCG tablet Take 25 mcg by mouth nightly. Multiple Vitamins-Minerals (MULTIVITAMIN WITH MINERALS) tablet Take 1 tablet by mouth d aily. omeprazole (PRILOSEC) 20 MG capsule Take 20 mg by mouth daily. simvastatin (ZOCOR) 10 MG tablet Take 10 mg by mouth nightly. Not sure of dosage vitamin B ckpueio-N-yajmn acid (SUPER B VITAMINS) 0.8 MG TABS Take 1 tablet by mouth da juan with breakfast. nephrovite Allergies Allergen Reactions Lisinopril Other (See Comments) [...] BIOLOGICAL; 2 STEP KIDSUNEMPLOYED BEFORE WORKED AT [employer] IN [place] NONE ETOH QUIT 15 YEARS AGODRUGS: quit METHAMPHETAMINES PER P ATIENT after the ARF in mar 2012FATHER HAS COLON CANCER, HEART DISEASEMOTHER 15 YEARS AGONO FH KIDNEY PROBLEMS. Scheduled Medications allopurinol 100 mg Oral Daily aspirin 81 mg Oral Daily with breakfast citalopram 20 mg Oral Nightly heparin (porcine) Intracatheter QMWF heparin (porcine) 1,000 Units Intravenous QMWF heparin (porcine) 5,000 Units Subcutaneous Q8H heparin (porcine) 500 Units Intravenous QMWF insulin aspart 0-3 Units Subcutaneous Nightly insulin aspart 0-6 Units Subcutaneous TID AC levothyroxine 75 mcg Oral Nightly omeprazole 40 mg Oral QAM AC simvastatin 10 mg Oral Nightly sodium chloride 10 mL Intravenous Q8H vancomycin 750 mg Intravenous See Admin Instructions vitamin B uqopatq-L-pngbt acid 1 tablet Oral Daily with breakfast Continuous Infusions dextrose PRN Medications acetaminophen, acetaminophen, albumin human, albuterol, ALPRAZolam, chlorhexidine, dextrose , dextrose, dextrose, glucagon, glucagon, HYDROcodone-acetaminophen, insulin aspart, nitroGL YCERIN, ondansetron, ondansetron, polyethylene glycol Allergy: Allergies Allergen Reactions Lisinopril Other (See Comments) "makes me sweat and knocked me out" Penicillins Other (See Comments) unknown OBJECTIVE Vital Signs: BP 185/88 | Pulse 87 | Temp(Src) 98.5 F (36.9 C) (Oral) | Resp 20 | Ht 1.702 m (5' 7") | Wt 73.4 kg (161 lb 13.1 oz) | BMI 25.34 kg/m2 | SpO2 100% I&O Detailed Table: I/O last 3 completed shifts: In: 3100 [P.O.:1000; Other:2100] Out: 4175 [Urine:1050; Drains:25; Other:3100] Weight change: -0.5 kg (-1 lb 1.6 oz) APPEARANCE: The patient is a pleasant lying in no apparent distress. VITALS: Reviewed as listed. EYES: Non-icteric sclera. +VE PALE CONJUCTIVA ENT: Buccal mucosa is moist. NECK: Supple. No raised JVD. LUNGS: Clear to auscultation bilaterally. HEART: S1, S2, no pericardial rub noted. ABDOMEN: Full, soft, no tenderness. Bowel sounds are present. EXTREMITIES: no pedal edema noted. B/L LE with chronic venous changes. SKIN: Warm to touch. Healing rash. NEUROLOGIC: No gross focal motor deficit noted. PSYCH: The patient is alert and awake. BACK: no CVA tenderness noted Hemodialysis access: Left upper extremity brachiocephalic fistula with good bruit but deep Left IJ hemodialysis catheter non tunneled LABS: Recent Results (from the past 24 hour(s)) C DIFF TOXIN BY PCR (TAT 2HR IN HOUSE) Collection Time 07/10/12 2:37 AM Component Value Range Toxigenic C Difficile NEGATIVE NEGATIVE 027 NAP1 BI 027 NAP1 BI PRESUMPTIVE NEGATIVE CBC W/AUTO DIFF (REFLEX TO MANUAL) Collection Time 07/10/12 5:00 AM Component Value Range WBC 11.0 3.8 - 11.0 K/uL RBC 2.83 (*) 4.20 - 5.70 M/uL HGB 9.1 (*) 13.2 - 17.0 g/dL HCT 26.8 (*) 39.0 - 50.0 % MCV 94.7 80.0 - 100.0 fl MCH 32.0 27.0 - 34.0 pg MCHC 33.8 32.0 - 35.5 g/dL RDW SD 53.8 (*) 37 - 53 fl PLT 288 150 - 400 K/uL MPV 7.4 DIFF TYPE AUTOMATED NEUTROPHILS 81.2 (*) 40 - 75 % LYMPHOCYTES 5.5 (*) 15 - 48 % MONOCYTES 9.5 0 - 12 % EOSINOPHILS 3.7 0 - 7 % BASOPHILS 0.1 0 - 2 % NEUTROPHILS ABS 8.9 (*) 1.9 - 7.4 K/uL LYMPHOCYTES ABS 0.6 (*) 1.0 - 3.9 K/uL MONOCYTES ABS 1.0 (*) 0 - 0.8 K/uL EOSINOPHILS ABS 0.4 0 - 0.5 K/uL BASOPHILS ABS 0.0 0 - 0.1 K/uL BASIC METABOLIC PANEL Collection Time 07/10/12 5:00 AM Component Value Range SODIUM 137 135 - 143 mmol/L POTASSIUM 3.8 3.5 - 4.9 mmol/L CHLORIDE 103 99 - 109 mmol/L CO2 25 23 - 32 mmol/L ANION GAP AGAP 12 5 - 20 mmol/L GLUCOSE 191 (*) 65 - 99 mg/dL BUN 26 (*) 8 - 25 mg/dL CREATININE 4.29 (*) 0.70 - 1.30 mg/dL BUN/CREAT 6 CALCIUM 7.7 (*) 8.5 - 10.2 mg/dL EGFR 16 (*) >60 mL/min/1.73m2 POCT GLUCOSE Collection Time 07/10/12 5:42 AM Component Value Range GLUCOSE,POC SCREEN 183 (*) 65 - 99 mg/dL URINALYSIS (REFLEX TO MICROSCOPIC/REFLEX TO CULTURE) Collection Time 07/10/12 10:53 AM Component Value Range COLOR YELLOW CLARITY CLEAR SPECIFIC GRAVITY,URINE 1.022 1.001 - 1.035 LEUKOCYTE ESTERASE NEGATIVE NEGATIVE NITRITE NEGATIVE NEGATIVE UROBILINOGEN 0.2 <1.1 mg/dL PROTEIN 100 (*) NEGATIVE mg/dL PH,URINE 5.0 4.6 - 8.0 BLOOD SMALL (*) NEGATIVE KETONES NEGATIVE NEGATIVE mg/dL BILIRUBIN NEGATIVE NEGATIVE GLUCOSE 100 (*) NEGATIVE mg/dL UR URIC ACID,RANDOM Collection Time 07/10/12 10:53 AM Component Value Range UR URIC ACID,RANDOM 24.1 URINE MICROSCOPIC ONLY Collection Time 07/10/12 10:53 AM Component Value Range WBC 6-10 0 - 5 /hpf RBC 1-5 0 - 5 /hpf EPITHELIAL 1-5 BACTERIA 2+ (*) NONE SEEN Crystals 2+ POCT GLUCOSE Collection Time 07/10/12 12:53 PM Component Value Range GLUCOSE,POC SCREEN 193 (*) 65 - 99 mg/dL POCT GLUCOSE Collection Time 07/10/12 4:18 PM Component Value Range GLUCOSE,POC SCREEN 235 (*) 65 - 99 mg/dL IMAGING: reviewed Patient's old records and labs were reviewed in detail and summarized. PROBLEM LIST Principal Problem: *Bacteremia due to Staphylococcus Active Problems: Type II or unspecified type diabetes mellitus without mention of complication, not stated as uncontrolled Hypothyroidism Hypoalbuminemia Diabetes mellitus with ESRD (end-stage renal disease) Hypokalemia ESRD (end stage renal disease) on dialysis Febrile illness, acute Anemia of chronic kidney failure SIRS due to infectious process with acute organ dysfunction Blind left eye Gout Chest pain Hip pain, bilateral Knee pain, right Bilateral ankle pain Septic arthritis of knee, right ASSESSMENT & PLAN ESRD ON HD No need for hd/uf today Access functioning well Discussed with dr meyer plan for tunneled catheter in am as well as superficialization of avf in am Assess daily for need for hd & uf Plan for hd/ uf in am Orders put in the chart Fluid restriction 1 litre/24 hours Strict I & O Daily RFP Renal diet Daily weights will help with subsequent hd with uf Dose all meds per protocol for ESRD on hd ANEMIA OF CKD EPOGEN TO KEEP HGB 10-11 HYPOALBUMINEMIA INCREASE PROTEIN INTAKE HTN: controlled WATCH BP CLOSELY DURING HOSPITALIZATION DM-2 STRICT GLYCEMIC CONTROL Hypokalemia REPLACE TO KEEP k GREATER THAN 3.8 Staphylococcus bacteremia, Per hospitalist/ id. Polyarthritis. Dr. Raza consulted / septic arthritis on abx CASE DISCUSSED IN DETAIL WITH PATIENT/ HOSPITALIST/ dr meyer, ANSWERS ALL QUESTIONS IN DETAIL , VERBALIZES UNDERSTANDING Time spend over 25 minutes of time spent evaluating the patient, reviewing the data, formul ating a plan and discussion with patient and care team. JUAN TIMMONS MD 07/10/2012 ulatisha, Kisha Rousseau MD - 07/10/2012 5:31 PM PST Progress Notes by Kisha Tello MD at 07/10/12 1731 Author: Kisha Tello MD Service: (none) Author Type: Physician Filed: 07/10/12 2351 Date of Service: 07/10/12 173 Status: Signed Ged Tutor: Kisha Tello MD (Physician) [facility] Service: Infectious Disease Progress Note Hospital Day: LOS: 4 days Op Day: SUBJECTIVE Patient Summary: 47 y.o. male with significant past medical history of MSSA and Strep tococcus anginosus bacteremia in March,, thought to be either from cutaneous source o r from a LUE IV site. This was treated with IV vancomycin given with HD for about 6 weeks an d briefly with Zyvox. He has a R IJ tunneled HD catheter placed in March. He had a rash in March, thought to be acute suppurative folliculitis/perforating disease. In April , he was hospitalized at [facility] for febrile illness with blood cultures in [facility] not showing gr owth. He presented with a week of joint pains, mostly at his R knee, L ankle and hips with diffic ulty moving because of this. He had swelling of R knee and L ankle. He had fevers but had no chest pain, cough, dyspnea, discomfort at dialysis catheter site, new skin rash, headache or neck stiffness/pain. He states that his vision deteriorated acutely on the left but he c an appreciate light. Blood cultures from [facility] in [place] are now reported as positive for MSSA. Bloo d cultures on admission are now also positive. He has been seen by Dr. Schultz from Orthopedics with arthrocentesis carried out at R knee and L ankle joints. Finding consistent with gouty arthritis for both joints. There is sept ic arthritis also of the R knee. RONY done with no signs of endocarditis. Prior tunneled R IJ HD catheter removed, catheter tip sent for culture and non-tunneled HD catheter placed.. Washout of R knee done on 07/07. Events Overnight: planned for d/c to [facility] . No Complaints of nausea vom iting or diarrhea.no skin rash. Scheduled Medications allopurinol 100 mg Oral Daily aspirin 81 mg Oral Daily with breakfast citalopram 20 mg Oral Nightly heparin (porcine) Intracatheter QMWF heparin (porcine) 1,000 Units Intravenous QMWF heparin (porcine) 5,000 Units Subcutaneous Q8H heparin (porcine) 500 Units Intravenous QMWF insulin aspart 0-3 Units Subcutaneous Nightly insulin aspart 0-6 Units Subcutaneous TID AC levothyroxine 75 mcg Oral Nightly omeprazole 40 mg Oral QAM AC simvastatin 10 mg Oral Nightly sodium chloride 10 mL Intravenous Q8H vancomycin 750 mg Intravenous See Admin Instructions vitamin B jcsixha-Y-rewdq acid 1 tablet Oral Daily with breakfast Continuous Infusions dextrose PRN Medications acetaminophen, acetaminophen, albumin human, albuterol, ALPRAZolam, chlorhexidine, dextrose , dextrose, dextrose, glucagon, glucagon, HYDROcodone-acetaminophen, insulin aspart, nitroGL YCERIN, ondansetron, ondansetron, polyethylene glycol OBJECTIVE Vital Signs: BP 179/84 | Pulse 84 | Temp(Src) 98.6 F (37 C) (Oral) | Resp 18 | Ht 1.702 m (5' 7") | Wt 73.4 kg (161 lb 13.1 oz) | BMI 25.34 kg/m2 | SpO2 100% Temp: [97.6 F (36.4 C)-98.6 F (37 C)] 98.6 F (37 C) (07/10 1601) BP: (143-206)/(70-88) 179/84 mmHg (07/10 1601) Heart Rate: [76-87] 84 (07/10 1601) Resp: [18-20] 18 (07/10 1601) SpO2: [99 %-100 %] 100 % (07/10 1601) Physical Exam Nursing note and vitals reviewed. Constitutional: He is oriented to person, place, and time. No distress. Mouth/Throat: Oropharynx is clear and moist. Eyes: Conjunctivae and EOM are normal.no discharge. Neck: Neck supple. Left neck temporary HD catheter site benign Cardiovascular: Normal rate and regular rhythm. No murmur heard. Pulmonary/Chest: Effort normal and breath sounds normal. Abdominal: Soft. Bowel sounds are normal. He exhibits no distension and no mass. There is n o tenderness. Musculoskeletal: no significant tenderness or warmth over the knee. R knee - dressings dry and intact Neurological: He is alert and oriented to person, place, and time. Skin: Skin is dry. Old scars; excoriations mostly on extremities DATA CBC: Lab Results Component Value Date WBC 11.0 07/10/2012 RBC 2.83* 07/10/2012 HGB 9.1* 07/10/2012 HCT 26.8* 07/10/2012 MCV 94.7 07/10/2012 MCH 32.0 07/10/2012 MCHC 33.8 07/10/2012 RDW 53.8* 07/10/2012 PLT 288 07/10/2012 MPV 7.4 07/10/2012 DIFFTYPE AUTOMATED 07/10/2012 WBC: Lab Results Component Value Date WBC 11.0 07/10/2012 NEUTABSMAN 19.7* 07/06/2012 NEUTROABS 8.9* 07/10/2012 NEUTROMAN 84* 07/06/2012 LYMPHOABS 1.4 07/06/2012 LYMPHOMAN 6* 07/06/2012 LYMPHSABS 0.6* 07/10/2012 LYMPHOPCT 5.5* 07/10/2012 MONOABSMAN 1.2* 07/06/2012 MONOMAN 5 07/06/2012 MONOPCT 9.5 07/10/2012 EOSINOABS 0.2 07/06/2012 EOSINOMAN 1 07/06/2012 EOSABS 0.4 07/10/2012 EOSPCT 3.7 07/10/2012 BASOABSMAN 0.1 05/01/2012 BASOSABS 0.0 07/10/2012 BASOSMAN 1 05/01/2012 BASOPCT 0.1 07/10/2012 PLTEST ADEQUATE 07/07/2012 BANDSPCT 2 07/06/2012 NRBC 1* 05/02/2012 METAABS 0.5* 07/06/2012 METAPCT 2* 07/06/2012 RBCMORPH NORMAL 07/08/2012 COMDIFF SLIDE SCANNED, AGREES WITH AUTOMATED RESULTS. 07/08/2012 CMP: Lab Results Component Value Date NA 137 07/10/2012 K 3.8 07/10/2012 CL 103 07/10/2012 CO2 25 07/10/2012 ANIONGAP 12 07/10/2012 GLUF 191* 07/10/2012 BUN 26* 07/10/2012 CREATININE 4.29* 07/10/2012 BCR 6 07/10/2012 CA 7.7* 07/10/2012 CA 6.1* 04/02/2012 PROT 6.4 07/07/2012 ALB 1.3* 07/08/2012 GLOB 5.0* 07/07/2012 BILITOT 0.6 07/07/2012 ALP 196* 07/07/2012 AST 29 07/07/2012 ALT 10 07/07/2012 EGFR 16* 07/10/2012 PROBLEM LIST Principal Problem: *Bacteremia due to Staphylococcus Active Problems: Type II or unspecified type diabetes mellitus without mention of complication, not stated as uncontrolled Hypothyroidism Hypoalbuminemia Diabetes mellitus with ESRD (end-stage renal disease) Hypokalemia ESRD (end stage renal disease) on dialysis Febrile illness, acute Anemia of chronic kidney failure SIRS due to infectious process with acute organ dysfunction Blind left eye Gout Chest pain Hip pain, bilateral Knee pain, right Bilateral ankle pain Septic arthritis of knee, right ASSESSMENT & PLAN MSSA bacteremia - RONY was negative. Most likely secondary to HD catheter infection. R IJ tunneled HD karl ter was removed on 07/07 with catheter tip positive for S aureus. He has a temporary HD karl ter. He most likely had R IJ HD catheter seeded in March, when he had MSSA/S anginos us bacteremia from a LUE IV site followed by R IJ and bilateral cephalic veins DVT. Apprec iate Dr. Myeer's input: Discussed with Nephrology service about superficialization of left br achiobasilic fistula on Saturday if blood cultures from 07/08 with no growth and new right IJ p ermacath at that time will also be placed. R knee septic arthritis - Gram stain previously reported as GNC, but culture now reported to be S aureus. This is most likely will be MSSA. Appreciate Orthopedic intervention; s/p washout. Most likely related to above vs from cutaneous source with patient having had skin rash andskin trauma from scratching his skin History of rash - no note of cellulitis or active lesions currently but patient's skin zee y dry with excoriations. Anticipate 8 weeks of IV antibiotic therapy with hemodialysis; Penicillin allergy described as anaphylaxis Gouty arthritis DM ESRD on hemodialysis Left eye decreased vision - Ophthalmology will see him as outpatient Code Status: Full Code Kisha Tello MD 07/10/2012 OContony n Transaction, Provider Unknown - 07/10/2012 4:42 PM PSTFormatting of this note might be di fferent from the original. Progress Notes by VANDANA Olivia at 07/10/121641 Author: VANDANA Olivia Service: (none) Author Type: Program Counselor Filed: 07/10/121641 Date of Service: 07/10/121641 Status: Signed Ged Tutor: VANDANA Olivia (Program Counselor) CM spoke with Pt re PT recommendation for SNF. Pt in agreement, stated he preferred to go to [facility] in [facility]. Referral faxed to both [facility] and [facility]. Al Zavala DO - 07/10/2012 1:05 PM PSTFormatting of this note might be different from the betina ginal. Progress Notes by Al Coon DO at 07/10/12 0865 Author: Al Coon DO Service: (none) Author Type: Physician Filed: 07/10/12 2796 Date of Service: 07/10/121304 Status: Signed Ged Tutor: Al Coon DO (Physician) [facility] Service: Hospitalist Progress Note Hospital Day: LOS: 4 days Post-Op Day: 1 Day Post-Op SUBJECTIVE Patient seen/examined, resting today, no issues at present. Scheduled Medications allopurinol 100 mg Oral Daily aspirin 81 mg Oral Daily with breakfast citalopram 20 mg Oral Nightly heparin (porcine) Intracatheter QMWF heparin (porcine) 1,000 Units Intravenous QMWF heparin (porcine) 5,000 Units Subcutaneous Q8H heparin (porcine) 500 Units Intravenous QMWF insulin aspart 0-3 Units Subcutaneous Nightly insulin aspart 0-6 Units Subcutaneous TID AC levothyroxine 75 mcg Oral Nightly omeprazole 40 mg Oral QAM AC simvastatin 10 mg Oral Nightly sodium chloride 10 mL Intravenous Q8H vancomycin 750 mg Intravenous See Admin Instructions vitamin B wtrkyei-R-plfrs acid 1 tablet Oral Daily with breakfast Continuous Infusions dextrose PRN Medications acetaminophen, acetaminophen, albumin human, albuterol, ALPRAZolam, chlorhexidine, dextrose , dextrose, dextrose, glucagon, glucagon, HYDROcodone-acetaminophen, insulin aspart, nitroGL YCERIN, ondansetron, ondansetron, polyethylene glycol OBJECTIVE Vital Signs: BP 206/88 | Pulse 86 | Temp(Src) 97.6 F (36.4 C) (Oral) | Resp 18 | Ht 1.702 m (5' 7") | Wt 73.4 kg (161 lb 13.1 oz) | BMI 25.34 kg/m2 | SpO2 100% Patient Vitals for the past 24 hrs: BP Temp Temp src Pulse Resp SpO2 07/10/12 1251 206/88 mmHg 97.6 F (36.4 C) Oral 86 18 100 % 07/10/12 0837 197/86 mmHg 98.2 F (36.8 C) Oral 80 18 100 % 07/10/12 0428 186/70 mmHg - - - - - 01/17/13 0425 194/84 mmHg 98.1 F (36.7 C) Oral 79 18 100 % 07/10/12 0007 154/74 mmHg 98.4 F (36.9 C) Oral 76 20 99 % 07/09/12 2041 143/70 mmHg 97.9 F (36.6 C) Axillary 87 18 100 % 07/09/12 1700 126/58 mmHg 98.8 F (37.1 C) Oral 75 20 98 % 07/09/12 1313 148/72 mmHg 98.3 F (36.8 C) Oral 74 20 98 % Physical Exam Vitals reviewed. Constitutional: He is oriented to person, place, and time. He appears well-developed and we ll-nourished. No distress. HENT: Head: Normocephalic and atraumatic. Mouth/Throat: Oropharynx is clear and moist. Eyes: Conjunctivae are normal. No scleral icterus. Neck: Normal range of [...] dry. He is not diaphoretic. No erythema. No pallor. Psychiatric: He has a normal mood and affect. His behavior is normal. Judgment and thought content normal. DATA CBC: Lab Results Component Value Date WBC 11.0 07/10/2012 RBC 2.83* 07/10/2012 HGB 9.1* 07/10/2012 HCT 26.8* 07/10/2012 MCV 94.7 07/10/2012 MCH 32.0 07/10/2012 MCHC 33.8 07/10/2012 RDW 53.8* 07/10/2012 PLT 288 07/10/2012 MPV 7.4 07/10/2012 DIFFTYPE AUTOMATED 07/10/2012 CMP: Lab Results Component Value Date NA 137 07/10/2012 K 3.8 07/10/2012 CL 103 07/10/2012 CO2 25 07/10/2012 ANIONGAP 12 07/10/2012 GLUF 191* 07/10/2012 BUN 26* 07/10/2012 CREATININE 4.29* 07/10/2012 BCR 6 07/10/2012 CA 7.7* 07/10/2012 CA 6.1* 04/02/2012 PROT 6.4 07/07/2012 ALB 1.3* 07/08/2012 GLOB 5.0* 07/07/2012 BILITOT 0.6 07/07/2012 ALP 196* 07/07/2012 AST 29 07/07/2012 ALT 10 07/07/2012 EGFR 16* 07/10/2012 ECHO RONY [ECHO01] Status: Final result Study Result Patient Name: CAROL POTTER Date of : 1965 Performing Physician: Jayy Heller MD INDICATIONS R/O ENDOCARDITIS CONCLUSIONS 1. Overall left ventricular systolic function is normal with, an EF between 60 - 65 %. 2. No vegetation visualized. FINDINGS -------- Procedure: Transesophageal echocardiogram with spectral and color flow Doppler was performe d. Procedure: RONY was done at the [facility] in the fasting state. Informed consent was obtained after benefits and risks of the procedure were discussed with the patient including but not limited to the potential for esophageal puncture and . The oropharynx was anesthetized with 1% Hurricane spray. After conscious sedation, the transesophageal probe was advanced and placed in the esophagus and multiple projections of the cardiovascular structures were a cquired and recorded. This was followed by advancement of the probe into the stomach for t ransgastric imaging. Finally, interrogation of the descending aorta and arch was performed. The probe was removed. The patient tolerated the procedure well. There were no immedia te complications. 2 D, pulsed and continuous wave form and color images were interpreted i n real time. Medications: 4 mg of Versed and Study quality: This was a technically adequate study. Left Ventricle: The left ventricle size is normal. Left Ventricle: Left Ventricle: Overall left ventricular systolic function is normal with, an EF between 60 - 65 %. Left Atrium: No LA/ OSCAR thrombus. Right Ventricle: The right ventricle is normal in size and function. Right Atrium: The right atrial size is normal. Interatrial Septum: No shunt seen with color Doppler. Interatrial Septum: No shunt seen with bubble study. Aortic Valve: The aortic valve is trileaflet, and appears structurally normal. No aortic st enosis or regurgitation. Aortic Valve: No vegetation visualized. Mitral Valve: The mitral valve is normal. Mitral Valve: There is trace mitral regurgitation. Mitral Valve: No vegetation was seen. Tricuspid Valve: The tricuspid valve appears structurally normal. Trace/Mild (physiologic) regurgitation. Tricuspid Valve: Trace tricuspid regurgitation present. Tricuspid Valve: No vegetation visualized. Pulmonic Valve: The pulmonic valve is normal. Pulmonic Valve: Trace pulmonic regurgitation. Aorta: Ascending aorta, aortic arch and descending thoracic aorta are of normal caliber wit h no significant atherosclerotic disease. Pulmonary Veins: All pulmonary veins appear normal. Pulmonary Veins: The flow patterns, measured by Doppler, appear normal. Pericardium: There is no pericardial effusion. === === Cultures growing MSSA (R to clinda) including catheter tip culture Repeat cultures are negative so far PROBLEM LIST Principal Problem: *Bacteremia due to Staphylococcus Active Problems: Type II or unspecified type diabetes mellitus without mention of complication, not stated as uncontrolled Hypothyroidism Hypoalbuminemia Diabetes mellitus with ESRD (end-stage renal disease) Hypokalemia ESRD (end stage renal disease) on dialysis Febrile illness, acute Anemia of chronic kidney failure SIRS due to infectious process with acute organ dysfunction Blind left eye Gout Chest pain Hip pain, bilateral Knee pain, right Bilateral ankle pain Septic arthritis of knee, right ASSESSMENT & PLAN Patient Active Hospital Problem List: Bacteremia due to Staphylococcus (07/06/2012) Likely due to seeding of prior dialysis catheter, which has been removed. Continue IV abx / ID recs. Temporary dialysis catheter is in place currently, anticipate placement of new tunneled HD catheter tomorrow. Blind left eye (07/06/2012) Could be related to bacteremia, or else vitreous hemorrhage. Discussed with Dr Quiroz. He rec ommends treatment for bacteremia as already is being given, and outpatient follow up. Gout (07/06/2012) Has been on allopurinol off/on in the past. Gave a dose of colchicine, will treat further w ith allopurinol. Septic Knee, R (07/06/2012) S/p diagnostic arthroscopy. Related to bacteremia as outlined above. Plan as above. Disposition: Inpatient Al Coon DO 07/10/2012 1:05 PM Giovany Borges PA - 07/10/2012 12:05 PM PSTFormatting of this note might be different from the malik lRenato Progress Notes by Giovany Bustamante PA-C at 07/10/12 1205 Author: Giovany Bustamante PA-C Service: Orthopedic Surgery Author Type: Physician Amanda prado - Certified Filed: 07/10/12 1216 Date of Service: 07/10/12 1205 Status: Signed Ged Tutor: Giovany Bustamante PA-C (Physician Editorial Writer - Certified) [facility] Service: Orthopedic Surgery Progress Note Hospital Day: LOS:Hospital Day: 5 Post-Op Day: 3 Days Post-Op SUBJECTIVE Patient Summary: Patient reports pain in knee. Slipped while attempting to go to rest room today and bumped knee on edge of bed. Events Overnight: No acute events. OBJECTIVE Vital Signs: Filed Vitals: 07/10/12 0837 BP: 197/86 Pulse: 80 Temp: 98.2 F (36.8 C) Resp: 18 SpO2: 100% Exam: NAD, resting comfortably in bed. Drain in place. Minimal serous drainage in bulb No active drainage from incision sites. Drain removed, steristrips applied, addditional dressing placed over incisions Patient with pain, discomfort with drain removal, tenderness at drain site. No erythema, wa rmth or active drainage from site Sensation intact distally dp 2+, toes pink, moves toes appropriately DATA Lab Results Component Value Date WBC 11.0 07/10/2012 HGB 9.1* 07/10/2012 HCT 26.8* 07/10/2012 MCV 94.7 07/10/2012 PLT 288 07/10/2012 Lab Results Component Value Date INR 1.2 07/07/2012 INR 1.1 05/06/2012 INR 1.3 05/01/2012 Lab Results Component Value Date CRP 23.0* 07/07/2012 CRP 33.0* 07/06/2012 CRP 10.0* 05/14/2012 CRP 11.0* 04/07/2012 No components found with this basename: ESR ASSESSMENT & PLAN S/P arthropscopic I&D POD #3 Drain removed, incisions healing well with no signs of infection Continue PT/OT with WBAT RLE, fall precautions ID to consult today Giovany Bustamante PA-C 07/10/2012 12:05 PM Fletcher Rucker edmed - 07/09/2012 10:13 PM PSTFormatting of this note might be different from the origin al. Progress Notes by Juan Timmons MD at 07/09/122212 Author: Juan Timmons MD Service: Nephrology Author Type: Physician Filed: 08/19/121902 Date of Service: 07/09/122212 Status: Signed Ged Tutor: Juan Timmons MD (Physician) [facility] Service: NEPHROLOGY progress Note Carol Potter 47 y.o. [id number] male [facility] Day: LOS: 3 days The patient is a 47 y.o. male with significant past medical history of diabetes complicated with end-stage renal disease, on maintenance hemodialysis Saturday, Saturday, Saturday, hypertension, hyperlipidemia, anemia of chronic kidney disease, gout, Admitted with Bacteremia/ fever. Nephrology consulted for evaluation and management of ESRD ONSET CHRONIC severity SEVERE Associated with fluid electrolyte acid base imbalances REQUIRING HD Pateint seen and examined jc hd well today Says feel weak,complains of minor neck pain. Denies cp, sob, nausea, vomiting, diarrhea, fever, [...] fistula lt arm Knee pain, right 07/06/2012 Past Surgical History Procedure Date Colonoscopy with egd 05/01/2012 Procedure: COLONOSCOPY W/ EGD; Surgeon: John Singleton MD; Location: [facility] ENDOSCOPY; Se rvice: Gastroenterology; Laterality: N/A; Av fistula placement 05/06/2012 Procedure: AV FISTULA; Surgeon: Oskar Meyer MD; Location: [facility] MAIN OR; Service: Vascul ar; Laterality: Left; Left arm possible right Unlisted procedure arthroscopy shoulder rt , ligaments Prescriptions prior to admission Medication Sig Dispense Refill ALBUTEROL IN Inhale 2 puffs into the lungs daily. amlodipine (NORVASC) 10 MG tablet Take 10 mg by mouth nightly. b complex-vitamin c-folic acid (NEPHRO-THU) 0.8 MG TABS Take 1 tablet by mouth daily. Cholecalciferol (VITAMIN D-3 PO) Take 1 tablet by mouth daily. citalopram (CELEXA) 20 MG tablet Take 20 mg by mouth nightly. ergocalciferol (DRISDOL) 59434 UNITS capsule Take 1 capsule by mouth once a week. 3 ca psule 0 levothyroxine (SYNTHROID, LEVOTHROID) 50 MCG tablet Take 50 mcg by mouth daily. omeprazole (PRILOSEC) 40 MG capsule Take 40 mg by mouth nightly. sodium bicarbonate 650 MG tablet Take 1,300 mg by mouth 2 (two) times daily. acyclovir (ZOVIRAX) 400 MG tablet Take 400 mg by mouth 2 (two) times daily. albuterol (PROVENTIL) (2.5 MG/3ML) 0.083% nebulizer solution Take 2.5 mg by nebulizatio n every 6 (six) hours as needed. ALPRAZolam (XANAX) 0.5 MG tablet Take 0.5 mg by mouth nightly as needed. aminocaproic acid (AMICAR) 500 MG tablet Take by mouth every 6 (six) hours. amlodipine (NORVASC) 10 MG tablet Take 10 mg by mouth nightly. calcitRIOL (ROCALTROL) 0.25 MCG capsule Take 0.25 mcg by mouth nightly. citalopram (CELEXA) 20 MG tablet Take 20 mg by mouth nightly. fish oil-omega-3 fatty acids 1000 MG capsule Take 2 g by mouth daily. folic acid-vitamin b complex-vitamin o-bzlasgxn-zdib (DIALYVITE) 3 MG TABS Take 1 table t by mouth nightly. HYDROcodone-acetaminophen (NORCO) 5-325 MG per tablet Take 1 tablet by mouth every 6 (s ix) hours as needed. May take 1-2 tabs q 4-6 hrs levothyroxine (SYNTHROID, LEVOTHROID) 25 MCG tablet Take 25 mcg by mouth nightly. Multiple Vitamins-Minerals (MULTIVITAMIN WITH MINERALS) tablet Take 1 tablet by mouth d aily. omeprazole (PRILOSEC) 20 MG capsule Take 20 mg by mouth daily. simvastatin (ZOCOR) 10 MG tablet Take 10 mg by mouth nightly. Not sure of dosage vitamin B cbpcbhl-U-lyexp acid (SUPER B VITAMINS) 0.8 MG TABS Take 1 tablet by mouth da juan with breakfast. nephrovite Allergies Allergen Reactions Lisinopril Other (See Comments) [...] BIOLOGICAL; 2 STEP KIDSUNEMPLOYED BEFORE WORKED AT [employer] IN [place]/ [employer] N[employer] ETOH QUIT 15 YEARS AGODRUGS: quit METHAMPHETAMINES PER P ATIENT after the ARF in mar 2012FATHER HAS COLON CANCER, HEART DISEASEMOTHER 15 YEARS AGONO FH KIDNEY PROBLEMS. Scheduled Medications allopurinol 100 mg Oral Daily aspirin 81 mg Oral Daily with breakfast citalopram 20 mg Oral Nightly epoetin alena 10,000 Units Intravenous Once in dialysis heparin (porcine) Intracatheter QMWF heparin (porcine) 1,000 Units Intravenous QMWF heparin (porcine) 5,000 Units Subcutaneous Q8H heparin (porcine) 500 Units Intravenous QMWF insulin aspart 0-3 Units Subcutaneous Nightly insulin aspart 0-6 Units Subcutaneous TID AC levothyroxine 75 mcg Oral Nightly omeprazole 40 mg Oral QAM AC simvastatin 10 mg Oral Nightly sodium chloride 10 mL Intravenous Q8H vancomycin 750 mg Intravenous See Admin Instructions vitamin B pychvsq-E-txwdx acid 1 tablet Oral Daily with breakfast DISCONTD: vancomycin 750 mg Intravenous See Admin Instructions Continuous Infusions dextrose PRN Medications acetaminophen, acetaminophen, albumin human, albuterol, ALPRAZolam, chlorhexidine, dextrose , dextrose, dextrose, glucagon, glucagon, HYDROcodone-acetaminophen, insulin aspart, nitroGL YCERIN, ondansetron, ondansetron, polyethylene glycol Allergy: Allergies Allergen Reactions Lisinopril Other (See Comments) "makes me sweat and knocked me out" Penicillins Other (See Comments) unknown OBJECTIVE Vital Signs: BP 143/70 | Pulse 87 | Temp(Src) 97.9 F (36.6 C) (Axillary) | Resp 18 | Ht 1.702 m (5' 7") | Wt 73.4 kg (161 lb 13.1 oz) | BMI 25.34 kg/m2 | SpO2 100% I&O Detailed Table: I/O last 3 completed shifts: In: 6015 [P.O.:1750; I.V.:265; Other:4000] Out: 8095 [Urine:1050; Drains:45; Other:7000] Weight change: -1.6 kg (-3 lb 8.4 oz) APPEARANCE: The patient is a pleasant sitting in no apparent distress. VITALS: Reviewed as listed. HEAD: NC/AT. EYES: Non-icteric sclera. +VE PALE CONJUCTIVA ENT: Buccal mucosa is moist. NECK: Supple. No raised JVD. Right IJ hemodialysis catheter site intact and no tenderness to palpation. LUNGS: Clear to auscultation bilaterally. HEART: S1, S2, no pericardial rub noted. ABDOMEN: Full, soft, no tenderness. Bowel sounds are present. EXTREMITIES: no pedal edema noted. B/L LE with chronic venous changes. SKIN: Warm to touch. Healing rash. NEUROLOGIC: No gross focal motor deficit noted. PSYCH: The patient is alert and awake. BACK: no CVA tenderness noted Hemodialysis access: Left upper extremity brachiocephalic fistula with good bruit Left IJ hemodialysis catheter LABS: Recent Results (from the past 24 hour(s)) CONFIRMATION GLUCOSE Collection Time 07/08/12 10:23 PM Component Value Range GLUCOSE 388 (*) 65 - 99 mg/dL CBC W/AUTO DIFF (REFLEX TO MANUAL) Collection Time 07/09/12 4:30 AM Component Value Range WBC 12.7 (*) 3.8 - 11.0 K/uL RBC 3.03 (*) 4.20 - 5.70 M/uL HGB 9.3 (*) 13.2 - 17.0 g/dL HCT 28.1 (*) 39.0 - 50.0 % MCV 92.8 80.0 - 100.0 fl MCH 30.7 27.0 - 34.0 pg MCHC 33.1 32.0 - 35.5 g/dL RDW SD 54.7 (*) 37 - 53 fl PLT 222 150 - 400 K/uL MPV 7.5 DIFF TYPE AUTOMATED NEUTROPHILS 85.0 (*) 40 - 75 % LYMPHOCYTES 5.3 (*) 15 - 48 % MONOCYTES 6.5 0 - 12 % EOSINOPHILS 2.9 0 - 7 % BASOPHILS 0.3 0 - 2 % NEUTROPHILS ABS 10.8 (*) 1.9 - 7.4 K/uL LYMPHOCYTES ABS 0.7 (*) 1.0 - 3.9 K/uL MONOCYTES ABS 0.8 0 - 0.8 K/uL EOSINOPHILS ABS 0.4 0 - 0.5 K/uL BASOPHILS ABS 0.0 0 - 0.1 K/uL BASIC METABOLIC PANEL Collection Time 07/09/12 4:30 AM Component Value Range SODIUM 133 (*) 135 - 143 mmol/L POTASSIUM 3.3 (*) 3.5 - 4.9 mmol/L CHLORIDE 99 99 - 109 mmol/L CO2 24 23 - 32 mmol/L ANION GAP AGAP 13 5 - 20 mmol/L GLUCOSE 223 (*) 65 - 99 mg/dL BUN 41 (*) 8 - 25 mg/dL CREATININE 5.87 (*) 0.70 - 1.30 mg/dL BUN/CREAT 7 CALCIUM 7.5 (*) 8.5 - 10.2 mg/dL EGFR 11 (*) >60 mL/min/1.73m2 POCT GLUCOSE Collection Time 07/09/12 5:25 AM Component Value Range GLUCOSE,POC SCREEN 266 (*) 65 - 99 mg/dL POCT GLUCOSE Collection Time 07/09/12 1:12 PM Component Value Range GLUCOSE,POC SCREEN 312 (*) 65 - 99 mg/dL VANCOMYCIN, RANDOM Collection Time 1/16/13 6:00 PM Component Value Range VANCOMYCIN,RANDOM 21.09 IMAGING: No results found. Patient's old records and labs were reviewed in detail and summarized. PROBLEM LIST Principal Problem: *Bacteremia due to Staphylococcus Active Problems: Type II or unspecified type diabetes mellitus without mention of complication, not stated as uncontrolled Hypothyroidism Hypoalbuminemia Diabetes mellitus with ESRD (end-stage renal disease) Hypokalemia ESRD (end stage renal disease) on dialysis Febrile illness, acute Anemia of chronic kidney failure SIRS due to infectious process with acute organ dysfunction Blind left eye Gout Chest pain Hip pain, bilateral Knee pain, right Bilateral ankle pain Septic arthritis of knee, right ASSESSMENT & PLAN ESRD ON HD cj hd/uf well today Access functioning well Hd flow sheet reviewed Assess daily for need for hd & uf hd/ uf in am Orders put in the chart Fluid restriction 1 litre/24 hours Strict I & O Daily RFP Renal diet Daily weights will help with subsequent hd with uf Dose all meds per protocol for ESRD on hd ANEMIA OF CKD EPOGEN TO KEEP HGB 10-11 HYPOALBUMINEMIA INCREASE PROTEIN INTAKE HTN: controlled WATCH BP CLOSELY DURING HOSPITALIZATION DM-2 STRICT GLYCEMIC CONTROL Hypokalemia REPLACE TO KEEP k GREATER THAN 3.8 Staphylococcus bacteremia, Per hospitalist/ id. Polyarthritis. Dr. Raza consulted / septic arthritis on abx CASE DISCUSSED IN DETAIL WITH PATIENT/ HOSPITALIST, ANSWERS ALL QUESTIONS IN DETAIL, VERBAL IZES UNDERSTANDING Time spend over 25 minutes of time spent evaluating the patient, reviewing the data, formul ating a plan and discussion with patient and care team. JUAN TIMMONS MD 07/09/2012 Giovany Borges PA - 07/09/2012 7:07 PM PSTFormatting of this note might be different from the origin al. Progress Notes by Giovany Bustamante PA-C at 07/09/121906 Author: Giovany Bustamante PA-C Service: Orthopedic Surgery Author Type: Physician Amanda prado - Certified Filed: 07/09/121913 Date of Service: 07/09/121906 Status: Signed Ged Tutor: Giovany Bustamante PA-C (Physician Editorial Writer - Certified) [facility] Service: Orthopedic Surgery Progress Note Hospital Day: LOS:Hospital Day: 4 Post-Op Day: 2 Days Post-Op SUBJECTIVE Patient Summary: Patient seen this evening. Resting comfortably in bed upon arrival. Easily aroused, c/o pain in right knee. Patient states that he was able to stand and walk to the chair today with assistance, albeit painful in right knee. Events Overnight: No acute events noted. OBJECTIVE Vital Signs: Filed Vitals: 07/09/12 1700 BP: 126/58 Pulse: 75 Temp: 98.8 F (37.1 C) Resp: 20 SpO2: 98% Exam: Patient easily aroused, resting comfortably in bed. NAD. Pain with any movement of right knee. Dressing intact, drain in place. approx 5 cc serosangiounous dc in drain bulb Incisions healing well. No erythema, warmth about the joint, discharge or signs of infectio n. New dressing applied. Appropriately fires FHL, EHL, TA, GSC Sensation intact distal to knee. DATA Lab Results Component Value Date WBC 12.7* 07/09/2012 HGB 9.3* 07/09/2012 HCT 28.1* 07/09/2012 MCV 92.8 07/09/2012 PLT 222 07/09/2012 Lab Results Component Value Date INR 1.2 07/07/2012 INR 1.1 05/06/2012 INR 1.3 05/01/2012 Lab Results Component Value Date CRP 23.0* 07/07/2012 CRP 33.0* 07/06/2012 CRP 10.0* 05/14/2012 CRP 11.0* 04/07/2012 No components found with this basename: ESR ASSESSMENT & PLAN Patient doing well S/P I&D Right knee. Continued pain, improving. Appreciate hospitalist, nephrology and ID input. Continue PT with ROM and ambulation with assistance as tolerated. Will continue to monitor labs and follow. Possibly DC drain tomorrow. Giovany Bustamante PA-C 07/09/2012 7:[address] - 07/09/2012 3:58 PM PSTFormatting of this note might be different from the malik garza Progress Notes by Erin Angel RD at 07/09/12 1049 Author: Erin Angel RD Service: (none) Author Type: Field Court Researcher Filed: 07/09/12 1604 Date of Service: 07/09/12 1558 Status: Signed Ged Tutor: Erin Angel RD (Field Court Researcher) Elevated blood sugars, 223 fasting, 388 last pm. Pt states he does not take any medications for his diabetes, however when he is at dialysis they often give him insulin. Does not know what kind or how much. Pt c/o pain and was not really very conversant. States his nurse just gave him meds but they are not working yet. Will try to f/u with him tomorrow. A1c 6.0, however as pt is on dialysis, not a reliable indicator. Currently getting low dose correction Novolog. Recommend start 10 units Lantus at hs and increase to medium dose s/s. Erin Angel RD, CD, Inpatient Field Court Researcher 07/09/2012 4:03 PM lsie Lerner S - 07/09/2012 10:56 AM PST Progress Notes by Elsie Lerner MD at 07/09/12 1056 Author: Elsie Lerner MD Service: (none) Author Type: Physician Filed: 07/09/12 1124 Date of Service: 07/09/12 1056 Status: Signed Ged Tutor: Elsie Lerner MD (Physician) [facility] Service: Infectious Disease Progress Note Hospital Day: LOS: 3 days Post-Op Day: 2 Days Post-Op SUBJECTIVE Patient Summary: 47 y.o. male with significant past medical history of MSSA and Strep tococcus anginosus bacteremia in March,, thought to be either from cutaneous source o r from a LUE IV site. This was treated with IV vancomycin given with HD for about 6 weeks an d briefly with Zyvox. He has a R IJ tunneled HD catheter placed in March. He had a rash in March, thought to be acute suppurative folliculitis/perforating disease. In April , he was hospitalized at [facility] for febrile illness with blood cultures in [facility] not showing gr owth. He presented with a week of joint pains, mostly at his R knee, L ankle and hips with diffic ulty moving because of this. He had swelling of R knee and L ankle. He had fevers but had no chest pain, cough, dyspnea, discomfort at dialysis catheter site, new skin rash, headache or neck stiffness/pain. He states that his vision deteriorated acutely on the left but he c an appreciate light. Blood cultures from [facility] in [place] are now reported as positive for MSSA. Bloo d cultures on admission are now also positive. He has been seen by Dr. Schultz from Orthopedics with arthrocentesis carried out at R knee and L ankle joints. Finding consistent with gouty arthritis for both joints. There is sept ic arthritis of the R knee. RONY done with no signs of endocarditis. Prior tunneled R IJ HD catheter removed, catheter tip sent for culture and non-tunneled HD catheter placed at the R. Washout of R knee done o n 07/07. Events Overnight: No chills, sweats, chest discomfort or coughing. Denies pruritus. N o change in left eye vision. No headaches or ocular pain. Denies back ache. Shoulder pain, r ight knee pain and left ankle pain improving. No diarrhea Scheduled Medications allopurinol 100 mg Oral Daily aspirin 81 mg Oral Daily with breakfast citalopram 20 mg Oral Nightly colchicine 0.6 mg Oral Once epoetin alena 10,000 Units Intravenous Once in dialysis heparin (porcine) Intracatheter QMWF heparin (porcine) 1,000 Units Intravenous QMWF heparin (porcine) 5,000 Units Subcutaneous Q8H heparin (porcine) 500 Units Intravenous QMWF insulin aspart 0-3 Units Subcutaneous Nightly insulin aspart 0-6 Units Subcutaneous TID AC levothyroxine 75 mcg Oral Nightly omeprazole 40 mg Oral QAM AC simvastatin 10 mg Oral Nightly sodium chloride 10 mL Intravenous Q8H vancomycin 750 mg Intravenous See Admin Instructions vitamin B nnhzagt-L-uhqvb acid 1 tablet Oral Daily with breakfast DISCONTD: colchicine 0.6 mg Oral Daily DISCONTD: colchicine 1.2 mg Oral Once DISCONTD: gentamicin 1.5 mg/kg (Adjusted) Intravenous See Admin Instructions DISCONTD: vancomycin 750 mg Intravenous See Admin Instructions Continuous Infusions dextrose PRN Medications acetaminophen, acetaminophen, albumin human, albuterol, ALPRAZolam, chlorhexidine, dextrose , dextrose, dextrose, glucagon, glucagon, HYDROcodone-acetaminophen, insulin aspart, nitroGL YCERIN, ondansetron, ondansetron, polyethylene glycol OBJECTIVE Vital Signs: BP 129/59 | Pulse 74 | Temp(Src) 98.1 F (36.7 C) (Oral) | Resp 18 | Ht 1.702 m (5' 7") | Wt 73.4 kg (161 lb 13.1 oz) | BMI 25.34 kg/m2 | SpO2 100% Temp: [97.7 F (36.5 C)-98.9 F (37.2 C)] 98.1 F (36.7 C) (07/09 1006) BP: (101-150)/(46-84) 129/59 mmHg (07/09 1015) Heart Rate: [74-79] 74 (07/09 1006) Resp: [16-21] 18 (07/09 0620) SpO2: [96 %-100 %] 100 % (07/09 1006) Weight: [73.4 kg (161 lb 13.1 oz)-74.8 kg (164 lb 14.5 oz)] 73.4 kg (161 lb 13.1 oz) (06/24 6 1015) Physical Exam Nursing note and vitals reviewed. Constitutional: He is oriented to person, place, and time. No distress. HENT: Head: Normocephalic. Mouth/Throat: Oropharynx is clear and moist. Poor dentition Eyes: Conjunctivae and EOM are normal. Right eye exhibits no discharge. Left eye exhibits n o discharge. No scleral icterus. Neck: Neck supple. Prior L HD catheter site benign. R neck temporary HD catheter site benign Cardiovascular: Normal rate and regular rhythm. No murmur heard. Pulmonary/Chest: Effort normal and breath sounds normal. Abdominal: Soft. Bowel sounds are normal. He exhibits no distension and no mass. There is n o tenderness. Musculoskeletal: L ankle with minimal warmth, tenderness and effusion R knee - dressings dry and intact; CRISTI drain in place with serosanguineous discharge in bulb Lymphadenopathy: He has no cervical adenopathy. Neurological: He is alert and oriented to person, place, and time. He exhibits normal muscl e tone. Skin: Skin is dry. He is not diaphoretic. Old scars; excoriations mostly on extremities Psychiatric: Thought content normal. DATA CBC: Lab Results Component Value Date WBC 12.7* 07/09/2012 RBC 3.03* 07/09/2012 HGB 9.3* 07/09/2012 HCT 28.1* 07/09/2012 MCV 92.8 07/09/2012 MCH 30.7 07/09/2012 MCHC 33.1 07/09/2012 RDW 54.7* 07/09/2012 PLT 222 07/09/2012 MPV 7.5 07/09/2012 DIFFTYPE AUTOMATED 07/09/2012 WBC: Lab Results Component Value Date WBC 12.7* 07/09/2012 NEUTABSMAN 19.7* 07/06/2012 NEUTROABS 10.8* 07/09/2012 NEUTROMAN 84* 07/06/2012 LYMPHOABS 1.4 07/06/2012 LYMPHOMAN 6* 07/06/2012 LYMPHSABS 0.7* 07/09/2012 LYMPHOPCT 5.3* 07/09/2012 MONOABSMAN 1.2* 07/06/2012 MONOMAN 5 07/06/2012 MONOPCT 6.5 07/09/2012 EOSINOABS 0.2 07/06/2012 EOSINOMAN 1 07/06/2012 EOSABS 0.4 07/09/2012 EOSPCT 2.9 07/09/2012 BASOABSMAN 0.1 05/01/2012 BASOSABS 0.0 07/09/2012 BASOSMAN 1 05/01/2012 BASOPCT 0.3 07/09/2012 PLTEST ADEQUATE 07/07/2012 BANDSPCT 2 07/06/2012 NRBC 1* 05/02/2012 METAABS 0.5* 07/06/2012 METAPCT 2* 07/06/2012 RBCMORPH NORMAL 07/08/2012 COMDIFF SLIDE SCANNED, AGREES WITH AUTOMATED RESULTS. 07/08/2012 CMP: Lab Results Component Value Date NA 133* 07/09/2012 K 3.3* 07/09/2012 CL 99 07/09/2012 CO2 24 07/09/2012 ANIONGAP 13 07/09/2012 GLUF 223* 07/09/2012 BUN 41* 07/09/2012 CREATININE 5.87* 07/09/2012 BCR 7 07/09/2012 CA 7.5* 07/09/2012 CA 6.1* 04/02/2012 PROT 6.4 07/07/2012 ALB 1.3* 07/08/2012 GLOB 5.0* 07/07/2012 BILITOT 0.6 07/07/2012 ALP 196* 07/07/2012 AST 29 07/07/2012 ALT 10 07/07/2012 EGFR 11* 07/09/2012 Noted vanco level - Pharmacy note Microbiology Results (last 14 days) Procedure Component Value Units Date/Time Body fluid crystal [[id number]] Collected:07/07/12 1839 Order Status:Completed Updated:07/09/12 0950 Specimen Information:Body Fluid FLUID CRYSTALS NO CRYSTALS SEEN Comment: Testing performed at [facility], [address] [place] [id number] Stool culture [[id number]] Collected:07/07/12 1752 Order Status:Completed Updated:07/09/12 0909 Specimen Information:Stool / Stool Specimen Description STOOL Specimen Description Result: Testing performed at [facility] [place] [address] CULTURE CULTURE IN PROGRESS CULTURE Result: Testing performed at [facility], [address] [place] [address] REPORT STATUS PENDING Blood culture, 2 of 2 [[id number]] (Abnormal) Collected:07/06/12 1804 Order Status:Completed Updated:07/09/12 0810 Specimen Information:Blood / Blood Specimen Description BLOOD GRAM STAIN Result: GRAM POSITIVE COCCI SEEN ON SMEAR OF AEROBIC BOTTLE GRAM STAIN Result: CALLED TO LANE/ZOLTAN Mccullough ON 07/08/12 AT 1016 BY READBACK GRAM STAIN Result: Testing performed at [facility] [place] [address] CULTURE Result: STAPHYLOCOCCUS AUREUS FOR SUSCEPTIBILITIES SEE CULTURE [id number] COLLECTED ON THE SAME D ATE (A) CULTURE GROWTH IN ONE OF TWO BOTTLES (A) CULTURE TIME TO DETECTION: 1.65 DAYS CULTURE Result: Testing performed at [facility], [address] [place] [address] REPORT STATUS 07/09/2012 FINAL Blood culture, 1 of 2 [[id number]] (Abnormal) Collected:07/06/12 1800 Order Status:Completed Updated:07/09/12 0807 Specimen Information:Blood / Blood Specimen Description BLOOD SPECIAL REQUESTS R HAND SPECIAL REQUESTS Result: Testing performed at [facility] [place] [address] GRAM STAIN Result: GRAM POSITIVE COCCI SEEN ON SMEAR OF ANAEROBIC BOTTLE GRAM STAIN Result: CALLED TO 6RP/EZEKIEL Villegas ON 07/07/12 AT 1337 BY READBACK GRAM STAIN Result: GRAM POSITIVE COCCI SEEN ON SMEAR OF AEROBIC BOTTLE GRAM STAIN Result: SMEAR RESULTS CALLED TO AND READ BACK BY: SHELL Romo IN 6RP @ 2155 BY [facility] GRAM STAIN Result: Testing performed at [facility];[address] [place] [address];[place] [address] CULTURE Result: STAPHYLOCOCCUS AUREUS SUSCEPTIBILITY TO FOLLOW (A) CULTURE GROWTH IN TWO OF TWO BOTTLES (A) CULTURE TIME TO DETECTION: 0.78 DAYS CULTURE Result: Testing performed at [facility], [address] [place] [address] REPORT STATUS 07/09/2012 FINAL Organism STAPHYLOCOCCUS AUREUS Culture & Susceptibility [...] TERRANCE Comments STAPHYLOCOCCUS AUREUS (TERRANCE) STAPHYLOCOCCUS AUREUS SUSCEPTIBILITY TO FOLLOW Blood culture, 1 of 2 [[id number]] Collected:07/08/12 1630 Order Status:Completed Updated:07/09/12 0647 Specimen Information:Blood / Blood Specimen Description BLOOD, PERIPHERAL DRAW Specimen Description Result: Testing performed at [facility] [place] [address] SPECIAL REQUESTS R HAND SPECIAL REQUESTS Result: Testing performed at [facility];[address] [place] [address] CULTURE NO GROWTH AT THIS TIME CULTURE Result: [place] [facility] [place] [address], [place] [address] REPORT STATUS PENDING Blood culture, 2 of 2 [[id number]] Collected:07/08/12 1636 Order Status:Completed Updated:07/09/12 0647 Specimen Information:Blood / Blood Specimen Description BLOOD, PERIPHERAL DRAW Specimen Description Result: Testing performed at [facility];[address] [place] [address] SPECIAL REQUESTS RAC SPECIAL REQUESTS Result: Testing performed at [facility];[address] [place] [address] CULTURE NO GROWTH AT THIS TIME CULTURE Result: Testing performed [place] [facility] [place] [address] [place] [address] REPORT STATUS PENDING C diff toxin by PCR (TAT 3 hr in house) [[id number]] Collected:07/07/12 175 Order Status:Completed Updated:07/07/12 1904 Specimen Information:Stool / Stool Toxigenic C Difficile NEGATIVE Comment: Testing performed at [facility];[address] [place] [address] 027 NAP1 BI 027 NAP1 BI PRESUMPTIVE NEGATIVE Comment: Detection of 027 NAP1 BI strains of C. difficile is presumptive and for epidemiological purposes and not intended to guide or monitor treatment for C. difficile infections. Testing performed at [facility];[address] [place] [address] Fecal occult blood (in house) [[id number]] Collected:07/07/12 175 Order Status:Completed Updated:07/07/12 1828 Specimen Information:Stool Fecal Occult Blood NEGATIVE Comment: Testing performed at [facility];[address] [place] [address] MRSA by PCR [[id number]] Collected:07/07/12 1048 Order Status:Completed Updated:07/07/12 1211 Specimen Information:Nasopharyngeal / Nasopharyngeal Culture SOURCE NARES(NOSE) Comment: Testing performed at [facility];[address] [place] [address] RESULT NEGATIVE Comment: Testing performed at [facility];[address] [place] [address] Catheter tip culture Abnormal Status: Preliminary result MyChart: Not Released Component Value Flag Specimen Description OTHER DIALYSIS CATHETER TIP Specimen Description Testing performed at [facility];[address] [place] [address] CULTURE GREATER THAN 15 CFU STAPHYLOCOCCUS AUREUS SUSCEPTIBILITY TO FOLLOW A CULTURE Testing performed at [facility], [address] [place] [address] REPORT STATUS PENDING Order Details View Encounter Lab and Collection Details Routing Result History Specimen Collected: 07/07/12 4:20 PM Last Resulted: 07/08/12 4:04 PM Ova and parasite examination Status: In process MyChart: Not Released Order Details View Encounter Lab and Collection Details Routing Result History Specimen Collected: 07/08/12 6:09 AM Last Resulted: 07/08/12 7:09 AM Encounter View Encounter Result Information Status In process (07/08/2012 7:09 AM) Provider Status: Ordered FLUID CULT W/GRAM STAIN Abnormal Status: Preliminary result MyChart: Not Released Component Value Flag Specimen Description SYNOVIAL FLUID RIGHT KNEE Specimen Description Testing performed at [facility];[address] [place] [address] GRAM STAIN WBC'S SEEN GRAM NEGATIVE COCCI ON CYTO SPIN SLIDE GRAM STAIN PHONED TO DR RAZA AT 0045 BY LJ READBACK GRAM STAIN REVIEW OF SMEAR BY MICROBIOLOGY SHOWS THE FOLLOWING: NO ORGANISMS SEEN GRAM STAIN Testing performed at [address] [address] CULTURE 1+ STAPHYLOCOCCUS AUREUS SUSCEPTIBILITY TO FOLLOW A CULTURE Testing performed at [address] [address] REPORT STATUS PENDING Order Details View Encounter Lab and Collection Details Routing Result History Specimen Collected: 07/06/12 11:08 PM Last Resulted: 07/08/12 6:23 PM Encounter View Encounter Result Information Abnormal Status: Preliminary result (07/08/2012 6:23 PM) Provider Status: Ordered FLUID CULT W/GRAM STAIN Status: Preliminary result MyChart: Not Released Component Value Specimen Description SYNOVIAL FLUID R KNEE Specimen Description Testing performed at [facility];[address] [place] [address] SPECIAL REQUESTS [facility] TO DO GRAM SPECIAL REQUESTS Testing performed at [facility];[address] [place] [address] GRAM STAIN 2+ WBC'S SEEN GRAM STAIN NO ORGANISMS SEEN GRAM STAIN Testing performed at [facility] [place] [address] CULTURE CULTURE IN PROGRESS CULTURE Testing performed at [address] [address] REPORT STATUS PENDING Order Details View Encounter Lab and Collection Details Routing Result History Specimen Collected: 07/07/12 6:39 PM Last Resulted: 07/08/12 4:08 PM Encounter View Encounter Result Information Status Preliminary result (07/08/2012 4:08 PM) Provider Status: Ordered Hepatitis B surface antigen Status: Final result MyChart: Not Released Value Range HEP B SURFACE AG NON REACTIVE NON REACTIVE Comments: Testing performed at [address] [address] Lab Flowsheet Order Details View Encounter Lab and Collection Details Routing Result History Specimen Collected: 07/07/12 3:13 PM Last Resulted: 07/07/12 6:37 PM Encounter View Encounter Result Information Status Final result (07/07/2012 6:37 PM) Provider Status: Ordered Radiology Results (last 7 days) Procedure Component Value Units Date/Time X-ray chest 1 view [[id number]] Collected:07/07/12 1630 Order Status:Completed Updated:07/07/12 1636 Narrative: HISTORY: Dialysis catheter placement. A single frontal view of the chest. COMPARISON: 07/06/12. FINDINGS: Left IJ Ibrahima catheter tip at the sinoatrial junction, without pneumothorax. Right IJ du al lumen catheter has been removed. Heart size is normal. Lungs are clear. IMPRESSION: 1. Left IJ Ibrahima catheter tip at the sinoatrial junction, with removal of right IJ centr al line. 2. No pneumothorax. hip left without contrast [[id number]] Resulted:07/07/12 1614 Order Status:Completed Updated:07/07/12 1615 Narrative: MRI OF THE LEFT AND RIGHT HIP HISTORY: Bilateral hip pain. Sepsis. Renal failure. TECHNIQUE: [...] time 11:08 p.m. Electronically signed by Sami Heath MD on Jul 07 2012 4:14PM MRI hip right without contrast [[id number]] Resulted:07/07/121613 Order Status:Completed Updated:07/07/121613 Narrative: MRI OF THE LEFT AND RIGHT HIP HISTORY: Bilateral hip pain. Sepsis. Renal failure. TECHNIQUE: [...] time 11:08 p.m. Electronically signed by Sami Heath MD on Jul 07 2012 4:14PM X-ray knee limited right [[id number]] Collected:07/07/1245 Order Status:Completed Updated:07/07/12852 Narrative: HISTORY: Right knee pain. COMPARISON: None. TECHNIQUE: AP, crosstable lateral films right knee. FINDINGS: Prominent joint effusion. Subtle infiltration of the subcutaneous fat throughout the knee, probably due to edema. Mild atrophy of the musculature. Arterial calcification diffusely throughout the distal by, knee, and upper calf. Subtle chondrocalcinosis. Smooth oval calc ification measuring 1.0 by 0.3 cm medial to the medial femoral condyle, perhaps related to o ld soft tissue injury. IMPRESSION: 1. Large joint effusion. 2. Infiltration of the subcutaneous fat throughout the knee, probably due to edema. Cellu litis not excluded. 3. Chondrocalcinosis. 4. Probable old soft tissue injury bordering the medial femoral condyle. X-ray ankle left [[id number]] Collected:07/07/1244 Order Status:Completed Updated:07/07/12850 Narrative: HISTORY: Left ankle pain. COMPARISON: None. TECHNIQUE: AP, oblique, lateral films left ankle. FINDINGS: There is moderate diffuse soft tissue swelling about the ankle. Ankle mortise appears inta ct. No ankle fracture is seen. Arterial calcification extends into the distal foot. IMPRESSION: 1. Moderate soft tissue swelling about the ankle, without fracture. Chest PA and Lateral [[id number]] Collected:07/07/12827 Order Status:Completed Updated:07/07/12836 Narrative: CAROL POTTER XR CHEST 2 VIEW FRONTAL AND LATERAL 07/06/2012 6:10 PM HISTORY: Fever. Dialysis patient. TECHNIQUE: Two views of the chest. FINDINGS: Compared with May 14, 2012. The heart is normal in size. No acute lung infiltrates o r evidence of edema. There is mild vascular congestion noted. The right IJ central venous catheter tip is in the lower SVC. No evidence of pneumothorax or pleural effusion. IMPRESSION: 1. Mild vascular congestion. Central line in place. No acute airspace infiltrates identi fied. brain wo contrast and MRA head [[id number]] Resulted:07/07/12 0735 Order Status:Completed Updated:07/07/12735 Narrative: MRI OF THE BRAIN WITHOUT CONTRAST PLUS [place] OF YANG MRA 07/06/2012 HISTORY: Staphylococcal bacteremia. Clinical concern for septic embolization and stroke. COMPARISON: None. TECHNIQUE: 3-D [id number] [place] MRA with multiprojectional 3-D MIP reconstru ctions. Axial diffusion, axial gradient echo, axial FLAIR, repeat axial FLAIR, axial T2, axi al T1 and sagittal FLAIR. FINDINGS: No evidence for intracranial restricted diffusion. No evidence for cerebral hemor rhage, mass effect, midline shift or obstructive hydrocephalus. Minimal generalized cerebral volume loss. There is amorphous abnormal T2 hyperintensity in the central aylin. The sagittal and axial F LAIR sequences are motion limited. Cerebral white matter disease if any is minimal. The [place] MRA shows no evidence for high-grade stenosis, central vessel occlusio n or [place] saccular aneurysm. Posterior communicating arteries are well developed bilaterally. Extracranially, there are findings of moderately prominent but nonspecific and age-indeterm inate maxillary sinus mucosal thickening. Minimal mastoid fluid signal. IMPRESSION: 1. No evidence for acute hemorrhage, stroke or loculated fluid collection intracranially. I nfection evaluation is somewhat limited without contrast administration. 2. Cerebral white matter disease is minimal and there is moderate but nonspecific central p ontine amorphous T2 hyperintensity. The differential could include microvascular ischemic ch anges or metabolic process. 3. Unremarkable screening [place] MRA. 4. Maxillary sinus mucosal thickening and mild mastoid fluid signal. Electronically signed by Isaac Desir MD on Jul 07 2012 7:35AM PROBLEM LIST Principal Problem: *Bacteremia due to Staphylococcus Active Problems: Type II or unspecified type diabetes mellitus without mention of complication, not stated as uncontrolled Hypothyroidism Hypoalbuminemia Diabetes mellitus with ESRD (end-stage renal disease) Hypokalemia ESRD (end stage renal disease) on dialysis Febrile illness, acute Anemia of chronic kidney failure SIRS due to infectious process with acute organ dysfunction Blind left eye Gout Chest pain Hip pain, bilateral Knee pain, right Bilateral ankle pain Septic arthritis of knee, right ASSESSMENT & PLAN MSSA bacteremia - RONY was negative. Most likely secondary to HD catheter infection. R IJ tunneled HD karl ter was removed on 07/07 with catheter tip positive for S aureus. He has a temporary HD karl ter. He most likely had R IJ HD catheter seeded in March, when he had MSSA/S anginos us bacteremia from a LUE IV site followed by R IJ and bilateral cephalic veins DVT. Apprec iate Dr. Meyer's input: Discussed with Nephrology service about superficialization of left br achiobasilic fistula on Saturday if blood cultures from 07/08 with no growth and new right IJ p ermacath at that time will also be placed. R knee septic arthritis - Gram stain previously reported as GNC, but culture now reported to be S aureus. This is most likely will be MSSA. Appreciate Orthopedic intervention; s/p washout. Most likely related to above vs from cutaneous source with patient having had skin rash andskin trauma from scratching his skin History of rash - no note of cellulitis or active lesions currently but patient's skin zee y dry with excoriations. Anticipate 8 weeks of IV vancomycin therapy with hemodialysis; he has penicillin allergy d escribed as anaphylaxis Gouty arthritis DM ESRD on hemodialysis Left eye decreased vision - Ophthalmology will see him as outpatient Placed on contact precautions by Infection Prevention. Doubt MRSA - d/c precautions when a ll susceptibilities are available Case discussed with Dr. Coon and Dr. Timmons. Dr. Tello to assume ID care on 07/10 Code Status: Full Code ELSIE LERNER MD 07/09/2012 rowAl romo DO - 07/09/2012 9:21 AM PST Progress Notes by Al Coon DO at 07/09/12920 Author: Al Coon DO Service: (none) Author Type: Physician Filed: 07/09/12922 Date of Service: 07/09/12920 Status: Signed Ged Tutor: Al Coon DO (Physician) [facility] Service: Hospitalist Progress Note Hospital Day: LOS: 3 days Post-Op Day: 1 Day Post-Op SUBJECTIVE Patient seen during dialysis. Complains of minor neck pain. Scheduled Medications allopurinol 100 mg Oral Daily aspirin 81 mg Oral Daily with breakfast citalopram 20 mg Oral Nightly colchicine 0.6 mg Oral Once epoetin alena 10,000 Units Intravenous Once in dialysis heparin (porcine) Intracatheter QMWF heparin (porcine) 1,000 Units Intravenous QMWF heparin (porcine) 5,000 Units Subcutaneous Q8H heparin (porcine) 500 Units Intravenous QMWF insulin aspart 0-3 Units Subcutaneous Nightly insulin aspart 0-6 Units Subcutaneous TID AC levothyroxine 75 mcg Oral Nightly omeprazole 40 mg Oral QAM AC simvastatin 10 mg Oral Nightly sodium chloride 10 mL Intravenous Q8H vancomycin 750 mg Intravenous See Admin Instructions vitamin B wpfgbas-D-eygta acid 1 tablet Oral Daily with breakfast DISCONTD: colchicine 0.6 mg Oral Daily DISCONTD: colchicine 1.2 mg Oral Once DISCONTD: gentamicin 1.5 mg/kg (Adjusted) Intravenous See Admin Instructions DISCONTD: vancomycin 750 mg Intravenous See Admin Instructions Continuous Infusions dextrose PRN Medications acetaminophen, acetaminophen, albumin human, albuterol, ALPRAZolam, chlorhexidine, dextrose , dextrose, dextrose, glucagon, glucagon, HYDROcodone-acetaminophen, insulin aspart, nitroGL YCERIN, ondansetron, ondansetron, polyethylene glycol OBJECTIVE Vital Signs: BP 134/64 | Pulse 74 | Temp(Src) 97.7 F (36.5 C) (Oral) | Resp 18 | Ht 1.702 m (5' 7") | Wt 74.8 kg (164 lb 14.5 oz) | BMI 25.83 kg/m2 | SpO2 100% Patient Vitals for the past 24 hrs: BP Temp Temp src Pulse Resp SpO2 Weight 07/09/12 0915 134/64 mmHg - - - - - - 07/09/12 0900 135/63 mmHg - - - - - - 07/09/12 0845 137/70 mmHg - - - - - - 07/09/12 0830 128/60 mmHg - - - - - - 07/09/12 0815 109/53 mmHg - - - - - - 07/09/12 0812 101/46 mmHg - - - - - - 07/09/12 0800 120/58 mmHg - - - - - - 07/09/12 0745 128/64 mmHg - - - - - - 07/09/12 0730 124/64 mmHg - - - - - - 07/09/12 0715 127/60 mmHg - - - - - - 07/09/12 0700 119/60 mmHg - - - - - - 07/09/12 0645 125/64 mmHg - - - - - - 07/09/12 0636 132/66 mmHg - - - - - - 07/09/12 0620 136/65 mmHg 97.7 F (36.5 C) Oral 74 18 100 % - 07/09/12 0312 123/58 mmHg 97.8 F (36.6 C) Oral 78 16 98 % 74.8 kg (164 lb 14.5 oz) 07/09/12 0008 118/57 mmHg 98.1 F (36.7 C) Oral 78 20 98 % - 07/08/12 2042 110/57 mmHg 98.5 F (36.9 C) Oral 79 20 96 % - 07/08/12 1500 123/62 mmHg 98.9 F (37.2 C) Oral 79 21 96 % - 07/08/12 1108 106/56 mmHg 98.6 F (37 C) Oral 78 16 99 % 73.9 kg (162 lb 14.7 oz) 07/08/12 1100 98/58 mmHg - - - - - - 07/08/12 1045 100/58 mmHg - - - - - - 07/08/12 1030 97/51 mmHg - - - - - - 07/08/12 1015 98/56 mmHg - - - - - - 07/08/12 1000 98/57 mmHg - - - - - - 07/08/12 0945 99/54 mmHg - - - - - - 07/08/12 0930 101/64 mmHg - - - - - - Physical Exam Vitals reviewed. Constitutional: He is oriented to person, place, and time. He appears well-developed and we ll-nourished. No distress. HENT: Head: Normocephalic and atraumatic. Mouth/Throat: Oropharynx is clear and moist. Eyes: Conjunctivae are normal. No scleral icterus. Neck: Normal range of [...] dry. He is not diaphoretic. No erythema. No pallor. Psychiatric: He has a normal mood and affect. His behavior is normal. Judgment and thought content normal. DATA CBC: Lab Results Component Value Date WBC 12.7* 07/09/2012 RBC 3.03* 07/09/2012 HGB 9.3* 07/09/2012 HCT 28.1* 07/09/2012 MCV 92.8 07/09/2012 MCH 30.7 07/09/2012 MCHC 33.1 07/09/2012 RDW 54.7* 07/09/2012 PLT 222 07/09/2012 MPV 7.5 07/09/2012 DIFFTYPE AUTOMATED 07/09/2012 CMP: Lab Results Component Value Date NA 133* 07/09/2012 K 3.3* 07/09/2012 CL 99 07/09/2012 CO2 24 07/09/2012 ANIONGAP 13 07/09/2012 GLUF 223* 07/09/2012 BUN 41* 07/09/2012 CREATININE 5.87* 07/09/2012 BCR 7 07/09/2012 CA 7.5* 07/09/2012 CA 6.1* 04/02/2012 PROT 6.4 07/07/2012 ALB 1.3* 07/08/2012 GLOB 5.0* 07/07/2012 BILITOT 0.6 07/07/2012 ALP 196* 07/07/2012 AST 29 07/07/2012 ALT 10 07/07/2012 EGFR 11* 07/09/2012 ECHO RONY [ECHO01] Status: Final result Study Result Patient Name: CAROL POTTER Date of : 1965 Performing Physician: Jayy Heller MD INDICATIONS R/O ENDOCARDITIS CONCLUSIONS 1. Overall left ventricular systolic function is normal with, an EF between 60 - 65 %. 2. No vegetation visualized. FINDINGS -------- Procedure: Transesophageal echocardiogram with spectral and color flow Doppler was performe d. Procedure: RONY was done at the [facility] in the fasting state. Informed consent was obtained after benefits and risks of the procedure were discussed with the patient including but not limited to the potential for esophageal puncture and . The oropharynx was anesthetized with 1% Hurricane spray. After conscious sedation, the transesophageal probe was advanced and placed in the esophagus and multiple projections of the cardiovascular structures were a cquired and recorded. This was followed by advancement of the probe into the stomach for t ransgastric imaging. Finally, interrogation of the descending aorta and arch was performed. The probe was removed. The patient tolerated the procedure well. There were no immedia te complications. 2 D, pulsed and continuous wave form and color images were interpreted i n real time. Medications: 4 mg of Versed and Study quality: This was a technically adequate study. Left Ventricle: The left ventricle size is normal. Left Ventricle: Left Ventricle: Overall left ventricular systolic function is normal with, an EF between 60 - 65 %. Left Atrium: No LA/ OSCAR thrombus. Right Ventricle: The right ventricle is normal in size and function. Right Atrium: The right atrial size is normal. Interatrial Septum: No shunt seen with color Doppler. Interatrial Septum: No shunt seen with bubble study. Aortic Valve: The aortic valve is trileaflet, and appears structurally normal. No aortic st enosis or regurgitation. Aortic Valve: No vegetation visualized. Mitral Valve: The mitral valve is normal. Mitral Valve: There is trace mitral regurgitation. Mitral Valve: No vegetation was seen. Tricuspid Valve: The tricuspid valve appears structurally normal. Trace/Mild (physiologic) regurgitation. Tricuspid Valve: Trace tricuspid regurgitation present. Tricuspid Valve: No vegetation visualized. Pulmonic Valve: The pulmonic valve is normal. Pulmonic Valve: Trace pulmonic regurgitation. Aorta: Ascending aorta, aortic arch and descending thoracic aorta are of normal caliber wit h no significant atherosclerotic disease. Pulmonary Veins: All pulmonary veins appear normal. Pulmonary Veins: The flow patterns, measured by Doppler, appear normal. Pericardium: There is no pericardial effusion. PROBLEM LIST Principal Problem: *Bacteremia due to Staphylococcus Active Problems: Type II or unspecified type diabetes mellitus without mention of complication, not stated as uncontrolled Hypothyroidism Hypoalbuminemia Diabetes mellitus with ESRD (end-stage renal disease) Hypokalemia ESRD (end stage renal disease) on dialysis Febrile illness, acute Anemia of chronic kidney failure SIRS due to infectious process with acute organ dysfunction Blind left eye Gout Chest pain Hip pain, bilateral Knee pain, right Bilateral ankle pain Septic arthritis of knee, right ASSESSMENT & PLAN Patient Active Hospital Problem List: Bacteremia due to Staphylococcus (07/06/2012) Awaiting sensitivities, continue IV abx / ID recs. Temporary dialysis catheter is in place currently, may swap to tunneled once blood cultures clear. RONY negative, prior catheter tip is cultured. Blind left eye (07/06/2012) Could be related to bacteremia, or else vitreous hemorrhage. Discussed with Dr Quiroz. He rec ommends treatment for bacteremia as already is being given, and outpatient follow up. Gout (07/06/2012) Has been on allopurinol off/on in the past. Gave a dose of colchicine, will treat further w ith allopurinol. Septic Knee, R (07/06/2012) S/p diagnostic arthroscopy. Plan as above. Disposition: Inpatient Al Coon DO 07/09/2012 9:21 AM Oskar Wells MD - 07/09 8:40 AM PST Progress Notes by Oskar Meyer MD at 07/09/12839 Author: Oskar Meyer MD Service: Vascular Surgery Author Type: Physician Filed: 07/09/12841 Date of Service: 07/09/12839 Status: Signed Ged Tutor: sOkar Meyre MD (Physician) Patient tentatively on schedule for superficialization of left brachibasilic fistula on Sat pending negative blood cultures drawn yesterday. I will also place a new right IJ perma cath at that time. Will need to be NPO after midnight on . Oskar Meyer MD 07/09/2012 Chela Lima [facility] - 07/09/2012 8:14 AM PST Progress Notes by Chela Varela RPH at 07/09/12813 Author: Chela Varela RPH Service: (none) Author Type: Pharmacist Filed: 07/09/12816 Date of Service: 07/09/12813 Status: Signed Ged Tutor: Chela Varela RPH (Pharmacist) Clinical Pharmacy Note - Renal Dose Adjustment Vancomycin dose was given ~1200 yesterday (not charted, but empty bag was sent down to [facility] last night). Vanco random level was drawn at 1600. Level = 35.65 mcg/mL. This level mor e closely represents a PEAK. Level ok. Patient did receive HD yesterday per charting. Patient started HD this am. Will order a random level for 6 hours after HD and only order a vancomycin dose to be given if level <20 mcg/mL. This should assure vancomycin has had suff icient time to redistribute. Pharmacy will continue to follow and adjust as appropriate. Pharmacist: Chela Varela 07/09/2012 8:14 AM Hi Farrar - 07/08/2012 10:20 PM PSTFormatting of this note might be different from the origi nal. Progress Notes by Juan Timmons MD at 07/08/12 1570 Author: Juan Timmons MD Service: Nephrology Author Type: Physician Filed: 08/19/12 6615 Date of Service: 07/08/122219 Status: Signed Ged Tutor: Juan Timmons MD (Physician) [facility] Service: NEPHROLOGY progress Note Carol Potter 47 y.o. [id number] male [facility] Day: LOS: 2 days The patient is a 47 y.o. male with significant past medical history of diabetes complicated with end-stage renal disease, on maintenance hemodialysis Saturday, Saturday, Saturday, hypertension, hyperlipidemia, anemia of chronic kidney disease, gout, Admitted with Bacteremia/ fever. Nephrology consulted for evaluation and management of ESRD ONSET CHRONIC severity SEVERE Associated with fluid electrolyte acid base imbalances REQUIRING HD Pateint seen and examined jc hd well today Says feel weak,complains of ongoing L eye blindness Denies cp, sob, nausea, vomiting, diarrhea, fever, [...] fistula lt arm Knee pain, right 07/06/2012 Past Surgical History Procedure Date Colonoscopy with egd 05/01/2012 Procedure: COLONOSCOPY W/ EGD; Surgeon: John Singleton MD; Location: [facility] ENDOSCOPY; Se rvice: Gastroenterology; Laterality: N/A; Av fistula placement 05/06/2012 Procedure: AV FISTULA; Surgeon: Oskar Meyer MD; Location: [facility] MAIN OR; Service: Vascul ar; Laterality: Left; Left arm possible right Unlisted procedure arthroscopy shoulder rt , ligaments Prescriptions prior to admission Medication Sig Dispense Refill ALBUTEROL IN Inhale 2 puffs into the lungs daily. amlodipine (NORVASC) 10 MG tablet Take 10 mg by mouth nightly. b complex-vitamin c-folic acid (NEPHRO-THU) 0.8 MG TABS Take 1 tablet by mouth daily. Cholecalciferol (VITAMIN D-3 PO) Take 1 tablet by mouth daily. citalopram (CELEXA) 20 MG tablet Take 20 mg by mouth nightly. ergocalciferol (DRISDOL) 67378 UNITS capsule Take 1 capsule by mouth once a week. 3 ca psule 0 levothyroxine (SYNTHROID, LEVOTHROID) 50 MCG tablet Take 50 mcg by mouth daily. omeprazole (PRILOSEC) 40 MG capsule Take 40 mg by mouth nightly. sodium bicarbonate 650 MG tablet Take 1,300 mg by mouth 2 (two) times daily. acyclovir (ZOVIRAX) 400 MG tablet Take 400 mg by mouth 2 (two) times daily. albuterol (PROVENTIL) (2.5 MG/3ML) 0.083% nebulizer solution Take 2.5 mg by nebulizatio n every 6 (six) hours as needed. ALPRAZolam (XANAX) 0.5 MG tablet Take 0.5 mg by mouth nightly as needed. aminocaproic acid (AMICAR) 500 MG tablet Take by mouth every 6 (six) hours. amlodipine (NORVASC) 10 MG tablet Take 10 mg by mouth nightly. calcitRIOL (ROCALTROL) 0.25 MCG capsule Take 0.25 mcg by mouth nightly. citalopram (CELEXA) 20 MG tablet Take 20 mg by mouth nightly. fish oil-omega-3 fatty acids 1000 MG capsule Take 2 g by mouth daily. folic acid-vitamin b complex-vitamin n-zjnjujxb-hqjr (DIALYVITE) 3 MG TABS Take 1 table t by mouth nightly. HYDROcodone-acetaminophen (NORCO) 5-325 MG per tablet Take 1 tablet by mouth every 6 (s ix) hours as needed. May take 1-2 tabs q 4-6 hrs levothyroxine (SYNTHROID, LEVOTHROID) 25 MCG tablet Take 25 mcg by mouth nightly. Multiple Vitamins-Minerals (MULTIVITAMIN WITH MINERALS) tablet Take 1 tablet by mouth d aily. omeprazole (PRILOSEC) 20 MG capsule Take 20 mg by mouth daily. simvastatin (ZOCOR) 10 MG tablet Take 10 mg by mouth nightly. Not sure of dosage vitamin B lpoybjj-T-zogdy acid (SUPER B VITAMINS) 0.8 MG TABS Take 1 tablet by mouth da juan with breakfast. nephrovite Allergies Allergen Reactions Lisinopril Other (See Comments) [...] BIOLOGICAL; 2 STEP KIDSUNEMPLOYED BEFORE WORKED AT [employer] IN [place] NONE ETOH QUIT 15 YEARS AGODRUGS: quit METHAMPHETAMINES PER P ATIENT after the ARF in mar 2012FATHER HAS COLON CANCER, HEART DISEASEMOTHER 15 YEARS AGONO FH KIDNEY PROBLEMS. Scheduled Medications aspirin 81 mg Oral Daily with breakfast bupivacaine-EPINEPHrine PF citalopram 20 mg Oral Nightly colchicine 0.6 mg Oral Once EPINEPHrine (1:1,000) epoetin alena 10,000 Units Intravenous Once in dialysis epoetin alena 10,000 Units Intravenous Once in dialysis fentaNYL heparin (porcine) Intracatheter QMWF heparin (porcine) 1,000 Units Intravenous QMWF heparin (porcine) 5,000 Units Subcutaneous Q8H heparin (porcine) 500 Units Intravenous QMWF insulin aspart 0-3 Units Subcutaneous Nightly insulin aspart 0-6 Units Subcutaneous TID AC levothyroxine 75 mcg Oral Nightly lidocaine midazolam omeprazole 40 mg Oral QAM AC simvastatin 10 mg Oral Nightly sodium chloride 10 mL Intravenous Q8H vancomycin 750 mg Intravenous See Admin Instructions vitamin B zhartct-E-bzeqa acid 1 tablet Oral Daily with breakfast DISCONTD: colchicine 0.6 mg Oral Daily DISCONTD: colchicine 1.2 mg Oral Once DISCONTD: gentamicin 1.5 mg/kg (Adjusted) Intravenous See Admin Instructions Continuous Infusions dextrose PRN Medications acetaminophen, acetaminophen, albumin human, albuterol, ALPRAZolam, chlorhexidine, dextrose , dextrose, dextrose, glucagon, glucagon, HYDROcodone-acetaminophen, insulin aspart, nitroGL YCERIN, ondansetron, ondansetron, polyethylene glycol Allergy: Allergies Allergen Reactions Lisinopril Other (See Comments) "makes me sweat and knocked me out" Penicillins Other (See Comments) unknown OBJECTIVE Vital Signs: BP 110/57 | Pulse 79 | Temp(Src) 98.5 F (36.9 C) (Oral) | Resp 20 | Ht 1.702 m (5' 7") | Wt 73.9 kg (162 lb 14.7 oz) | BMI 25.52 kg/m2 | SpO2 96% I&O Detailed Table: I/O last 3 completed shifts: In: 4865 [P.O.:1150; I.V.:1215; Other:2500] Out: 4067 [Drains:20; Other:4037; Blood:10] Weight change: 2.925 kg (6 lb 7.2 oz) APPEARANCE: The patient is a pleasant sitting in no apparent distress. VITALS: Reviewed as listed. HEAD: NC/AT. EYES: Non-icteric sclera. +VE PALE CONJUCTIVA ENT: Buccal mucosa is moist. NECK: Supple. No raised JVD. Right IJ hemodialysis catheter site intact and no tenderness to palpation. LUNGS: Clear to auscultation bilaterally. HEART: S1, S2, no pericardial rub noted. ABDOMEN: Full, soft, no tenderness. Bowel sounds are present. EXTREMITIES: no pedal edema noted. B/L LE with chronic venous changes. SKIN: Warm to touch. Healing rash. NEUROLOGIC: No gross focal motor deficit noted. PSYCH: The patient is alert and awake. BACK: no CVA tenderness noted Hemodialysis access: Left upper extremity brachiocephalic fistula with good bruit Left IJ hemodialysis catheter LABS: Recent Results (from the past 24 hour(s)) POCT GLUCOSE Collection Time 07/07/12 10:34 PM Component Value Range GLUCOSE,POC SCREEN 170 (*) 65 - 99 mg/dL POCT GLUCOSE Collection Time 07/08/12 5:58 AM Component Value Range GLUCOSE,POC SCREEN 262 (*) 65 - 99 mg/dL RENAL FUNCTION PANEL Collection Time 07/08/12 7:28 AM Component Value Range SODIUM 133 (*) 135 - 143 mmol/L POTASSIUM 3.5 3.5 - 4.9 mmol/L CHLORIDE 94 (*) 99 - 109 mmol/L CO2 25 23 - 32 mmol/L ANION GAP AGAP 18 5 - 20 mmol/L GLUCOSE 275 (*) 65 - 99 mg/dL BUN 62 (*) 8 - 25 mg/dL CREATININE 8.90 (*) 0.70 - 1.30 mg/dL CALCIUM 7.0 (*) 8.5 - 10.2 mg/dL Albumin 1.3 (*) 3.6 - 5.0 g/dL PHOSPHORUS 7.7 (*) 2.3 - 4.8 mg/dL EGFR 7 (*) >60 mL/min/1.73m2 CBC W/AUTO DIFF (REFLEX TO MANUAL) Collection Time 07/08/12 7:28 AM Component Value Range WBC 17.5 (*) 3.8 - 11.0 K/uL RBC 3.18 (*) 4.20 - 5.70 M/uL HGB 9.9 (*) 13.2 - 17.0 g/dL HCT 29.3 (*) 39.0 - 50.0 % MCV 92.2 80.0 - 100.0 fl MCH 31.2 27.0 - 34.0 pg MCHC 33.8 32.0 - 35.5 g/dL PLT 283 150 - 400 K/uL MPV 7.7 DIFF TYPE AUTOMATED NEUTROPHILS 95.8 (*) 40 - 75 % LYMPHOCYTES 1.9 (*) 15 - 48 % MONOCYTES 2.2 0 - 12 % EOSINOPHILS 0.1 0 - 7 % BASOPHILS 0.0 0 - 2 % NEUTROPHILS ABS 16.8 (*) 1.9 - 7.4 K/uL LYMPHOCYTES ABS 0.3 (*) 1.0 - 3.9 K/uL MONOCYTES ABS 0.4 0 - 0.8 K/uL EOSINOPHILS ABS 0.0 0 - 0.5 K/uL BASOPHILS ABS 0.0 0 - 0.1 K/uL Diff Comment SLIDE SCANNED, AGREES WITH AUTOMATED RESULTS. MORPHOLOGY NORMAL POCT GLUCOSE Collection Time 07/08/12 12:52 PM Component Value Range GLUCOSE,POC SCREEN 379 (*) 65 - 99 mg/dL VANCOMYCIN, RANDOM Collection Time 07/08/12 4:30 PM Component Value Range VANCOMYCIN,RANDOM 35.65 POCT GLUCOSE Collection Time 07/08/12 5:04 PM Component Value Range GLUCOSE,POC SCREEN 321 (*) 65 - 99 mg/dL IMAGING: Patient's old records and labs were reviewed in detail and summarized. PROBLEM LIST Principal Problem: *Bacteremia due to Staphylococcus Active Problems: Type II or unspecified type diabetes mellitus without mention of complication, not stated as uncontrolled Hypothyroidism Hypoalbuminemia Diabetes mellitus with ESRD (end-stage renal disease) Hypokalemia ESRD (end stage renal disease) on dialysis Febrile illness, acute Anemia of chronic kidney failure SIRS due to infectious process with acute organ dysfunction Blind left eye Gout Chest pain Hip pain, bilateral Knee pain, right Bilateral ankle pain Septic arthritis of knee, right ASSESSMENT & PLAN ESRD ON HD jc hd/uf well Access functioning well Hd flow sheet reviewed Assess daily for need for hd & uf hd/ uf in am Orders put in the chart Fluid restriction 1 litre/24 hours Strict I & O Daily RFP Renal diet Daily weights will help with subsequent hd with uf Dose all meds per protocol for ESRD on hd ANEMIA OF CKD EPOGEN TO KEEP HGB 10-11 HYPOALBUMINEMIA INCREASE PROTEIN INTAKE HTN: controlled WATCH BP CLOSELY DURING HOSPITALIZATION DM-2 STRICT GLYCEMIC CONTROL Hypokalemia REPLACE TO KEEP k GREATER THAN 3.8 Staphylococcus bacteremia, pending isolation and susceptibility. Prior history of MSSA bacteremia. Was treated for 6 weeks with vancomycin. In March, RONY was negative for endocarditis. Dr. Lerner, infectious disease, consulted BY DR DÍAZ. Recommends to continue the vancomycin and gentamicin for presumed endocarditis until ruled out by RONY. Polyarthritis. Dr. Raza consulted CASE DISCUSSED IN DETAIL WITH PATIENT/ HOSPITALIST, ANSWERS ALL QUESTIONS IN DETAIL, VERBAL IZES UNDERSTANDING Time spend over 25 minutes of time spent evaluating the patient, reviewing the data, formul ating a plan and discussion with patient and care team. JUAN TIMMONS MD 07/08/2012 onversion Transactio n, Provider Unknown - 07/08/2012 8:02 PM PST Progress Notes by Carmina Lara RPH at 07/08/122001 Author: Carmina Lara RPH Service: (none) Author Type: Pharmacist Filed: 07/08/122001 Date of Service: 07/08/122001 Status: Signed Ged Tutor: Carmina Lara RPH (Pharmacist) Clinical Pharmacy Note: Renal Monitoring Carol Potter 47 y.o. male Ht Readings from Last 1 Encounters: 07/06/12 1.702 m (5' 7") Wt Readings from Last 1 Encounters: 07/08/12 73.9 kg (162 lb 14.7 oz) Patient is on hemodialysis - Usual schedule: Mon-Wed-Sat Pharmacy dosing for renal function per Dr. Díaz. Will order the following dosage adjustments: Colchicine 0.6 mg PO x one dose only - dose for a gout flare. Dose should not be repeated for at least 14 days. Colchicine is not removed by hemodialysis. Chronic use should be av oided in patients on HD. Pharmacy will continue to monitor for changes in medication orders and adjust accordingly. Carmina Lara, PharmD 07/08/2012 7:59 PM Al Zavala DO - 07/08/2012 6:09 PM PSTFormatting of this note might be different from the betina givivian. Progress Notes by Al Coon DO at 07/08/121808 Author: Al Coon DO Service: (none) Author Type: Physician Filed: 07/09/12 0855 Date of Service: 07/08/121808 Status: Addendum Ged Tutor: Al Coon DO (Physician) Related Notes: Original Note by Al Coon DO (Physician) filed at 07/09/12 4235 [facility] Service: Hospitalist Progress Note Hospital Day: LOS: 2 days Post-Op Day: 1 Day Post-Op SUBJECTIVE Patient feeling better, but complains of ongoing L eye blindness, new, 3rd day now. Scheduled Medications aspirin 81 mg Oral Daily with breakfast bupivacaine-EPINEPHrine PF citalopram 20 mg Oral Nightly EPINEPHrine (1:1,000) epoetin alena 10,000 Units Intravenous Once in dialysis epoetin alena 10,000 Units Intravenous Once in dialysis fentaNYL heparin (porcine) Intracatheter QMWF heparin (porcine) 1,000 Units Intravenous QMWF heparin (porcine) 5,000 Units Subcutaneous Q8H heparin (porcine) 500 Units Intravenous QMWF insulin aspart 0-3 Units Subcutaneous Nightly insulin aspart 0-6 Units Subcutaneous TID AC levothyroxine 75 mcg Oral Nightly lidocaine midazolam omeprazole 40 mg Oral QAM AC simvastatin 10 mg Oral Nightly sodium chloride 10 mL Intravenous Q8H vancomycin 750 mg Intravenous See Admin Instructions vitamin B chqsngo-T-vvrbl acid 1 tablet Oral Daily with breakfast DISCONTD: clindamycin 600 mg Intravenous Electronic Prepress Technician to OR DISCONTD: gentamicin 1.5 mg/kg (Adjusted) Intravenous See Admin Instructions Continuous Infusions dextrose DISCONTD: phenylephrine in D5W 320 mcg/mL DISCONTD: sodium chloride 30 mL/hr (07/07/12 1526) DISCONTD: sodium chloride PRN Medications acetaminophen, acetaminophen, albumin human, albuterol, ALPRAZolam, chlorhexidine, dextrose , dextrose, dextrose, glucagon, glucagon, HYDROcodone-acetaminophen, insulin aspart, nitroGL YCERIN, ondansetron, ondansetron, polyethylene glycol, DISCONTD: fentaNYL, DISCONTD: fentaNY L, DISCONTD: lidocaine (PF) 1 %, DISCONTD: meperidine, DISCONTD: midazolam, DISCONTD: morphi ne, DISCONTD: morphine, DISCONTD: naloxone, DISCONTD: ondansetron OBJECTIVE Vital Signs: BP 123/62 | Pulse 79 | Temp(Src) 98.9 F (37.2 C) (Oral) | Resp 21 | Ht 1.702 m (5' 7") | Wt 73.9 kg (162 lb 14.7 oz) | BMI 25.52 kg/m2 | SpO2 96% Patient Vitals for the past 24 hrs: BP Temp Temp src Pulse Resp SpO2 Weight 07/08/12 1500 123/62 mmHg 98.9 F (37.2 C) Oral 79 21 96 % - 07/08/12 1108 106/56 mmHg 98.6 F (37 C) Oral 78 16 99 % 73.9 kg (162 lb 14.7 oz) 07/08/12 1100 98/58 mmHg - - - - - - 07/08/12 1045 100/58 mmHg - - - - - - 07/08/12 1030 97/51 mmHg - - - - - - 07/08/12 1015 98/56 mmHg - - - - - - 07/08/12 1000 98/57 mmHg - - - - - - 07/08/12 0945 99/54 mmHg - - - - - - 07/08/12 0930 101/64 mmHg - - - - - - 07/08/12 0915 100/58 mmHg - - - - - - 07/08/12 0900 102/56 mmHg - - - - - - 07/08/12 0845 99/56 mmHg - - - - - - 07/08/12 0830 96/51 mmHg - - - - - - 07/08/12 0815 105/59 mmHg - - - - - - 07/08/12 0800 108/56 mmHg - - - - - - 07/08/12 0745 106/58 mmHg - - - - - - 07/08/12 0735 118/67 mmHg - - - - - - 07/08/12 0715 121/68 mmHg 96.7 F (35.9 C) Axillary 78 20 100 % - 07/08/12 0549 115/59 mmHg 97.9 F (36.6 C) Axillary 76 20 100 % 76.6 kg (168 lb 14 oz) 07/08/12 0155 113/57 mmHg 97.5 F (36.4 C) Axillary 77 18 99 % - 07/07/12 2107 131/60 mmHg 98.8 F (37.1 C) Axillary 79 16 89 % - 07/07/122044 126/55 mmHg - - 80 - 98 % - 07/07/122029 128/60 mmHg - - - - - - 07/07/122014 127/59 mmHg - - - - 98 % - 07/07/121999 125/55 mmHg - - 80 - 98 % - 07/07/12 194 126/59 mmHg - - 80 - 98 % - 07/07/12 193 128/58 mmHg - - 78 - 98 % - 07/07/12 191 132/60 mmHg - - 78 - 98 % - 07/07/12 190 125/58 mmHg - - - - 89 % - 07/07/12 1840 121/60 mmHg - - 76 15 93 % - 07/07/12 1835 124/54 mmHg - - 78 22 95 % - 07/07/12 1830 119/61 mmHg - - 74 13 100 % - 07/07/12 1825 109/52 mmHg - - 74 15 100 % - 07/07/12 1820 91/49 mmHg - - 74 14 100 % - 07/07/12 1815 79/40 mmHg - - 76 13 96 % - 07/07/12 1811 67/36 mmHg - - 76 16 99 % - Physical Exam Vitals reviewed. Constitutional: He is oriented to person, place, and time. He appears well-developed and we ll-nourished. No distress. HENT: Head: Normocephalic and atraumatic. Mouth/Throat: Oropharynx is clear and moist. Eyes: Conjunctivae are normal. No scleral icterus. Neck: Normal range of [...] dry. He is not diaphoretic. No erythema. No pallor. Psychiatric: He has a normal mood and affect. His behavior is normal. Judgment and thought content normal. DATA CBC: Lab Results Component Value Date WBC 17.5* 07/08/2012 RBC 3.18* 07/08/2012 HGB 9.9* 07/08/2012 HCT 29.3* 07/08/2012 MCV 92.2 07/08/2012 MCH 31.2 07/08/2012 MCHC 33.8 07/08/2012 RDW 57.3* 07/07/2012 PLT 283 07/08/2012 MPV 7.7 07/08/2012 DIFFTYPE AUTOMATED 07/08/2012 CMP: Lab Results Component Value Date NA 133* 07/08/2012 K 3.5 07/08/2012 CL 94* 07/08/2012 CO2 25 07/08/2012 ANIONGAP 18 07/08/2012 GLUF 275* 07/08/2012 BUN 62* 07/08/2012 CREATININE 8.90* 07/08/2012 BCR 6 07/07/2012 CA 7.0* 07/08/2012 CA 6.1* 04/02/2012 PROT 6.4 07/07/2012 ALB 1.3* 07/08/2012 GLOB 5.0* 07/07/2012 BILITOT 0.6 07/07/2012 ALP 196* 07/07/2012 AST 29 07/07/2012 ALT 10 07/07/2012 EGFR 7* 07/08/2012 ECHO RONY [ECHO01] Status: Final result Study Result Patient Name: CAROL POTTER Date of : 1965 Performing Physician: Jayy Heller MD INDICATIONS R/O ENDOCARDITIS CONCLUSIONS 1. Overall left ventricular systolic function is normal with, an EF between 60 - 65 %. 2. No vegetation visualized. FINDINGS -------- Procedure: Transesophageal echocardiogram with spectral and color flow Doppler was performe d. Procedure: RONY was done at the beside in the fasting state. Informed consent was obtained after benefits and risks of the procedure were discussed with the patient including but not limited to the potential for esophageal puncture and . The oropharynx was anesthetized with 1% Hurricane spray. After conscious sedation, the transesophageal probe was advanced and placed in the esophagus and multiple projections of the cardiovascular structures were a cquired and recorded. This was followed by advancement of the probe into the stomach for t ransgastric imaging. Finally, interrogation of the descending aorta and arch was performed. The probe was removed. The patient tolerated the procedure well. There were no immedia te complications. 2 D, pulsed and continuous wave form and color images were interpreted i n real time. Medications: 4 mg of Versed and Study quality: This was a technically adequate study. Left Ventricle: The left ventricle size is normal. Left Ventricle: Left Ventricle: Overall left ventricular systolic function is normal with, an EF between 60 - 65 %. Left Atrium: No LA/ OSCAR thrombus. Right Ventricle: The right ventricle is normal in size and function. Right Atrium: The right atrial size is normal. Interatrial Septum: No shunt seen with color Doppler. Interatrial Septum: No shunt seen with bubble study. Aortic Valve: The aortic valve is trileaflet, and appears structurally normal. No aortic st enosis or regurgitation. Aortic Valve: No vegetation visualized. Mitral Valve: The mitral valve is normal. Mitral Valve: There is trace mitral regurgitation. Mitral Valve: No vegetation was seen. Tricuspid Valve: The tricuspid valve appears structurally normal. Trace/Mild (physiologic) regurgitation. Tricuspid Valve: Trace tricuspid regurgitation present. Tricuspid Valve: No vegetation visualized. Pulmonic Valve: The pulmonic valve is normal. Pulmonic Valve: Trace pulmonic regurgitation. Aorta: Ascending aorta, aortic arch and descending thoracic aorta are of normal caliber wit h no significant atherosclerotic disease. Pulmonary Veins: All pulmonary veins appear normal. Pulmonary Veins: The flow patterns, measured by Doppler, appear normal. Pericardium: There is no pericardial effusion. PROBLEM LIST Principal Problem: *Bacteremia due to Staphylococcus Active Problems: Type II or unspecified type diabetes mellitus without mention of complication, not stated as uncontrolled Hypothyroidism Hypoalbuminemia Diabetes mellitus with ESRD (end-stage renal disease) Hypokalemia ESRD (end stage renal disease) on dialysis Febrile illness, acute Anemia of chronic kidney failure SIRS due to infectious process with acute organ dysfunction Blind left eye Gout Chest pain Hip pain, bilateral Knee pain, right Bilateral ankle pain Septic arthritis of knee, right ASSESSMENT & PLAN Patient Active Hospital Problem List: Bacteremia due to Staphylococcus (07/06/2012) Awaiting sensitivities, continue IV abx / ID recs. Temporary dialysis catheter is in place currently, may swap to tunneled once blood cultures clear. RONY negative, prior catheter tip is cultured. Blind left eye (07/06/2012) Could be related to bacteremia. I have called Dr Quiroz's cellphone, not able to leave a mess age (6 pm) (voice mailbox is full). I have called his office and paged him, awaiting phoneca ll back (6 pm). Meanwhile will treat for bacteremia as per above. Addendum - discussed with Dr Quiroz. He recommends treatment for bacteremia as already is misael ng given, and outpatient follow up. Gout (07/06/2012) Has been on allopurinol off/on in the past. Will treat with colchicine 1.2 mg followed by 0 .6 mg daily. Septic Knee, R (07/06/2012) S/p diagnostic arthroscopy. Plan as above Disposition: Inpatient Al Coon DO 07/08/2012 6:12 PM Zoltan Baugh ARN P - 07/08/2012 4:11 PM PST Progress Notes by Zoltan Garcia RN at 01/1610 Author: Zoltan Garcia RN Service: (none) Author Type: Registered Nurse Filed: 07/08/12 161 Date of Service: 07/08/121610 Status: Signed Ged Tutor: Zoltan Garcia RN (Registered Nurse) VSS. Pt. Resting quietly in bed. No acute observations. Will continue monitoring. @ bedside. Pt. Had HD today with 2L off. Pt. Had bed bath and two bowel movements, large, l oose. onversion Trans action, Provider Unknown - 07/08/2012 1:56 PM PST Progress Notes by Clari Vazquez RN at 07/08/12 1356 Author: Clari Vazquez RN Service: Wound/Ostomy Care Author Type: Registered Nurse Filed: 07/08/12 135 Date of Service: 07/08/12 1356 Status: Addendum Ged Tutor: Clari Vazquez RN (Registered Nurse) Related Notes: Original Note by Clari Vazquez RN (Registered Nurse) filed at 1359 Patient seen today by lens marker for evaluation due to a documented pressure ulcer. Toda y's Olivier scale score is 14 indicating the patient is at moderate risk for pressure ulcer d evelopment or injury. Pt has a scabbed stage two on his coccyx. PUP is in place. Pt is able to turn himself in bed and is on a static air mattress overlay. Please consult wound care if further needs arise. Thank you, Clari Vazquez RN 1:57 PM 07/08/2012 onver quique Transaction, Provider Unknown - 07/08/2012 1:28 PM PST Progress Notes by Kelley Toussaint RPH at 07/08/12 5868 Author: Kelley Toussaint RPH Service: (none) Author Type: Pharmacist Filed: 07/08/12 4163 Date of Service: 07/08/128 Status: Signed Ged Tutor: Kelley Toussaint RPH (Pharmacist) Vancomycin Monitoring Clinician Dosing: Pharmacy Dosing Recent Trough level: N/A Plan per protocol: HD today, ended ~1200 Patient getting vanco 750 mg IV x 1. Order trough levels:07/08 @ 1600 (4 hours post HD) 07/08/2012 1:27 PM Pharmacist: Kelley Toussaint onver quique Transaction, Provider Unknown - 07/08/2012 9:50 AM PST Progress Notes by Erin Varela RN at 07/08/1250 Author: Erin Varela RN Service: Infectious Disease Author Type: Registered Nurse Filed: 07/08/1251 Date of Service: 07/08/12949 Status: Signed Ged Tutor: Erin Varela RN (Registered Nurse) Patient currently has a draining wound. Nasal PCR for MRSA is negative but Contact Isolati on is required until all pending cultures are final and negative for MRSA. Thank you. Erin Varela RN, BA, Data Assistant lsie Mercado S - 07/08/2012 9:00 AM PST Progress Notes by Elsie Lerner MD at 07/08/12899 Author: Elsie Lerner MD Service: (none) Author Type: Physician Filed: 07/08/12 1153 Date of Service: 07/08/12899 Status: Signed Ged Tutor: Elsie Lerner MD (Physician) [facility] Service: Infectious Disease Progress Note Hospital Day: LOS: 2 days Post-Op Day: 1 Day Post-Op SUBJECTIVE Patient Summary: 47 y.o. male with significant past medical history of MSSA and Strep tococcus anginosus bacteremia in March,, thought to be either from cutaneous source o r from a LUE IV site. This was treated with IV vancomycin given with HD for about 6 weeks an d briefly with Zyvox. He has a R IJ tunneled HD catheter placed in March. He had a rash in March, thought to be acute suppurative folliculitis/perforating disease. In April , he was hospitalized at [facility] for febrile illness with blood cultures in [facility] not showing gr owth. He presented with a week of joint pains, mostly at his R knee, L ankle and hips with diffic ulty moving because of this. He had swelling of R knee and L ankle. He had fevers but had no chest pain, cough, dyspnea, discomfort at dialysis catheter site, new skin rash, headache or neck stiffness/pain. He states that his vision deteriorated acutely on the left but he c an appreciate light. Blood cultures from [facility] in [place] are now reported as positive for MSSA. Bloo d cultures on admission are now also positive. He has been seen by Dr. Schultz from Orthopedics with arthrocentesis carried out at R knee and L ankle joints. Finding consistent with gouty arthritis for both joints. There is sept ic arthritis of the R knee. Events Overnight: RONY done with no signs of endocarditis. Prior tunneled R IJ HD cat heter removed, catheter tip sent for culture and non-tunneled HD catheter placed. Washout o f R knee done yesterday. HD done earlier. Patient states that he is overall feeling better with no chills, sweats, dizziness, chest p ain, cough, abdominal pain or diarrhea. Noted nursing report about suspicious looking stool yesterday sent for O & P. Vision at L eye about the same with no associated pain or headac he. Denies back pain. Hip pain decreased. L ankle pain stable. R knee pain 5-8/10, parti cularly with some movement. Scheduled Medications aspirin 81 mg Oral Daily with breakfast bupivacaine-EPINEPHrine PF citalopram 20 mg Oral Nightly EPINEPHrine (1:1,000) epoetin alena 10,000 Units Intravenous Once in dialysis epoetin alena 10,000 Units Intravenous Once in dialysis fentaNYL gentamicin 1.5 mg/kg (Adjusted) Intravenous See Admin Instructions heparin (porcine) Intracatheter Once in dialysis heparin (porcine) Intracatheter QMWF heparin (porcine) 1,000 Units Intravenous QMWF heparin (porcine) 5,000 Units Subcutaneous Q8H heparin (porcine) 500 Units Intravenous QMWF insulin aspart 0-3 Units Subcutaneous Nightly insulin aspart 0-6 Units Subcutaneous TID AC levothyroxine 75 mcg Oral Nightly lidocaine midazolam omeprazole 40 mg Oral QAM AC potassium chloride 20 mEq Intravenous Once potassium chloride 40 mEq Intravenous Once simvastatin 10 mg Oral Nightly sodium chloride 10 mL Intravenous Q8H vancomycin 750 mg Intravenous See Admin Instructions vitamin B utcrbwh-H-yvwvq acid 1 tablet Oral Daily with breakfast DISCONTD: clindamycin 600 mg Intravenous Electronic Prepress Technician to OR DISCONTD: meperidine 50 mg Intravenous Once Continuous Infusions dextrose DISCONTD: phenylephrine in D5W 320 mcg/mL DISCONTD: sodium chloride 30 mL/hr (07/07/12 1526) DISCONTD: sodium chloride PRN Medications acetaminophen, acetaminophen, albumin human, albuterol, ALPRAZolam, chlorhexidine, dextrose , dextrose, dextrose, glucagon, glucagon, HYDROcodone-acetaminophen, insulin aspart, nitroGL YCERIN, ondansetron, ondansetron, polyethylene glycol, DISCONTD: fentaNYL, DISCONTD: fentaNY L, DISCONTD: fentaNYL, DISCONTD: lidocaine (PF) 1 %, DISCONTD: meperidine, DISCONTD: midazol am, DISCONTD: midazolam, DISCONTD: morphine, DISCONTD: morphine, DISCONTD: naloxone DISCONTD: ondansetron OBJECTIVE Vital Signs: BP 99/56 | Pulse 78 | Temp(Src) 96.7 F (35.9 C) (Axillary) | Resp 20 | Ht 1.702 m (5' 7 ") | Wt 76.6 kg (168 lb 14 oz) | BMI 26.45 kg/m2 | SpO2 100% Temp: [96.7 F (35.9 C)-98.8 F (37.1 C)] 96.7 F (35.9 C) (07/08 714) BP: (64-132)/(33-68) 98/58 mmHg (07/08 1100) Heart Rate: [74-85] 78 (07/08 714) Resp: [13-22] 20 (07/08 714) SpO2: [89 %-100 %] 100 % (07/08 714) Weight: [76.6 kg (168 lb 14 oz)] 76.6 kg (168 lb 14 oz) (07/08 548) FiO2 : [49 %-100 %] 100 % (07/07 1811) Physical Exam Nursing note and vitals reviewed. Constitutional: He is oriented to person, place, and time. No distress. Supportive at bedside; patient just got done with dialysis HENT: Head: Normocephalic. Mouth/Throat: Oropharynx is clear and moist. Poor dentition Eyes: Conjunctivae and EOM are normal. Right eye exhibits no discharge. Left eye exhibits n o discharge. No scleral icterus. Neck: Neck supple. Prior L HD catheter site benign. R neck HD catheter site benign Cardiovascular: Normal rate and regular rhythm. No murmur heard. Pulmonary/Chest: Effort normal and breath sounds normal. Abdominal: Soft. Bowel sounds are normal. He exhibits no distension and no mass. There is n o tenderness. Musculoskeletal: L ankle with minimal warmth, tenderness and effusion R knee - dressings dry and intact; CRISTI drain in place with serosanguineous discharge in bulb Lymphadenopathy: He has no cervical adenopathy. Neurological: He is alert and oriented to person, place, and time. He exhibits normal muscl e tone. Skin: Skin is dry. He is not diaphoretic. Old scars; excoriations mostly on extremities Psychiatric: Thought content normal. DATA CBC: Lab Results Component Value Date WBC 17.5* 07/08/2012 RBC 3.18* 07/08/2012 HGB 9.9* 07/08/2012 HCT 29.3* 07/08/2012 MCV 92.2 07/08/2012 MCH 31.2 07/08/2012 MCHC 33.8 07/08/2012 RDW 57.3* 07/07/2012 PLT 283 07/08/2012 MPV 7.7 07/08/2012 DIFFTYPE AUTOMATED 07/08/2012 WBC: Lab Results Component Value Date WBC 17.5* 07/08/2012 NEUTABSMAN 19.7* 07/06/2012 NEUTROABS 16.8* 07/08/2012 NEUTROMAN 84* 07/06/2012 LYMPHOABS 1.4 07/06/2012 LYMPHOMAN 6* 07/06/2012 LYMPHSABS 0.3* 07/08/2012 LYMPHOPCT 1.9* 07/08/2012 MONOABSMAN 1.2* 07/06/2012 MONOMAN 5 07/06/2012 MONOPCT 2.2 07/08/2012 EOSINOABS 0.2 07/06/2012 EOSINOMAN 1 07/06/2012 EOSABS 0.0 07/08/2012 EOSPCT 0.1 07/08/2012 BASOABSMAN 0.1 05/01/2012 BASOSABS 0.0 07/08/2012 BASOSMAN 1 05/01/2012 BASOPCT 0.0 07/08/2012 PLTEST ADEQUATE 07/07/2012 BANDSPCT 2 07/06/2012 NRBC 1* 05/02/2012 METAABS 0.5* 07/06/2012 METAPCT 2* 07/06/2012 RBCMORPH NORMAL 07/08/2012 COMDIFF SLIDE SCANNED, AGREES WITH AUTOMATED RESULTS. 07/08/2012 CMP: Lab Results Component Value Date NA 133* 07/08/2012 K 3.5 07/08/2012 CL 94* 07/08/2012 CO2 25 07/08/2012 ANIONGAP 18 07/08/2012 GLUF 275* 07/08/2012 BUN 62* 07/08/2012 CREATININE 8.90* 07/08/2012 BCR 6 07/07/2012 CA 7.0* 07/08/2012 CA 6.1* 04/02/2012 PROT 6.4 07/07/2012 ALB 1.3* 07/08/2012 GLOB 5.0* 07/07/2012 BILITOT 0.6 07/07/2012 ALP 196* 07/07/2012 AST 29 07/07/2012 ALT 10 07/07/2012 EGFR 7* 07/08/2012 Vancomycin, random Status: Final result MyChart: Not Released Value Range VANCOMYCIN,RANDOM 29.01 ug/mL Comments: Testing performed at [facility];[address] [place] [address] Lab Flowsheet Order Details View Encounter Lab and Collection Details Routing Result History Specimen Collected: 07/07/12 1:43 PM Last Resulted: 07/07/12 2:11 PM Encounter View Encounter Result Information Status Final result (07/07/2012 2:11 PM) Provider Status: Ordered Gentamicin level, random Abnormal Status: Final result MyChart: Not Released Value Flag Range GENTAMICIN, RANDOM 3.6 L 5.0 - 10.0 ug/mL Comments: Testing performed at [facility];[address] [place] [address] Lab Flowsheet Order Details View Encounter Lab and Collection Details Routing Result History Specimen Collected: 07/07/12 1:43 PM Last Resulted: 07/07/12 2:11 PM Hepatitis B surface antigen Status: Final result MyChart: Not Released Value Range HEP B SURFACE AG NON REACTIVE NON REACTIVE Comments: Testing performed at [facility], [address] [place] [address] Lab Flowsheet Order Details View Encounter Lab and Collection Details Routing Result History Specimen Collected: 07/07/12 3:13 PM Last Resulted: 07/07/12 6:37 PM Encounter View Encounter Result Information Status Final result (07/07/2012 6:37 PM) Provider Status: Ordered Catheter tip culture Status: In process MyChart: Not Released Order Details View Encounter Lab and Collection Details Routing Result History Specimen Collected: 07/07/12 4:20 PM Last Resulted: 07/07/12 4:35 PM Encounter View Encounter Result Information Status In process (07/07/2012 4:35 PM) Provider Status: Ordered FLUID CULT W/GRAM STAIN Status: Preliminary result MyChart: Not Released Component Value Specimen Description SYNOVIAL FLUID R KNEE Specimen Description Testing performed at [facility];[address] [place] [address] SPECIAL REQUESTS [facility] TO DO GRAM SPECIAL REQUESTS Testing performed at [facility];[address] [place] [address] GRAM STAIN 2+ WBC'S SEEN GRAM STAIN NO ORGANISMS SEEN GRAM STAIN Testing performed at [facility];[address] [place] [address] CULTURE PENDING REPORT STATUS PENDING Order Details View Encounter Lab and Collection Details Routing Result History Specimen Collected: 07/07/12 6:39 PM Last Resulted: 07/07/12 7:26 PM Encounter View Encounter Result Information Status Preliminary result (07/07/2012 7:26 PM) Provider Status: Ordered Ova and parasite examination Status: In process MyChart: Not Released Order Details View Encounter Lab and Collection Details Routing Result History Specimen Collected: 07/08/12 6:09 AM Last Resulted: 07/08/12 7:09 AM Encounter View Encounter Result Information Status In process (07/08/2012 7:09 AM) Provider Status: Ordered Microbiology Results (last 14 days) Procedure Component Value Units Date/Time Blood culture, 1 of 2 [[id number]] (Abnormal) Collected:07/06/12 1800 Order Status:Completed Updated:07/08/12 1100 Specimen Information:Blood / Blood Specimen Description BLOOD SPECIAL REQUESTS R HAND SPECIAL REQUESTS Result: Testing performed at [facility] [place] [address] GRAM STAIN Result: GRAM POSITIVE COCCI SEEN ON SMEAR OF ANAEROBIC BOTTLE GRAM STAIN Result: CALLED TO 6RP/EZEKIEL Villegas ON 07/07/12 AT 1337 BY LL READBACK GRAM STAIN Result: GRAM POSITIVE COCCI SEEN ON SMEAR OF AEROBIC BOTTLE GRAM STAIN Result: SMEAR RESULTS CALLED TO AND READ BACK BY: SHELL Romo IN 6RP @ 2155 BY LGS GRAM STAIN Result: Testing performed at [facility];[address] [place] [address] CULTURE Result: STAPHYLOCOCCUS AUREUS SUSCEPTIBILITY TO FOLLOW (A) CULTURE GROWTH IN TWO OF TWO BOTTLES (A) CULTURE TIME TO DETECTION: 0.78 DAYS CULTURE Result: Testing performed at [facility], [address] [place] [address] REPORT STATUS PENDING Blood culture, 2 of 2 [[id number]] (Abnormal) Collected:07/06/12 1804 Order Status:Completed Updated:07/08/12 1017 Specimen Information:Blood / Blood Specimen Description BLOOD GRAM STAIN Result: GRAM POSITIVE COCCI SEEN ON SMEAR OF AEROBIC BOTTLE GRAM STAIN Result: CALLED TO 6RP/ZOLTAN Mccullough ON 07/08/12 AT 1016 BY LL READBACK GRAM STAIN Result: Testing performed at [facility];[address] [place] [address] CULTURE GROWTH IN ONE OF TWO BOTTLES (A) CULTURE WORK UP IN PROGRESS AT MICRO LAB CULTURE Result: Testing performed at [facility];[address] [place] [address] REPORT STATUS PENDING C diff toxin by PCR (TAT 3 hr in house) [[id number]] Collected:07/07/12 1752 Order Status:Completed Updated:07/07/12 1904 Specimen Information:Stool / Stool Toxigenic C Difficile NEGATIVE Comment: Testing performed at [facility];[address] [place] [address] 027 NAP1 BI 027 NAP1 BI PRESUMPTIVE NEGATIVE Comment: Detection of 027 NAP1 BI strains of C. difficile is presumptive and for epidemiological purposes and not intended to guide or monitor treatment for C. difficile infections. Testing performed at [facility];[address] [place] [address] Fecal occult blood (in house) [[id number]] Collected:07/07/12 1751 Order Status:Completed Updated:07/07/12 1828 Specimen Information:Stool Fecal Occult Blood NEGATIVE Comment: Testing performed at [facility];[address] [facility];[place] [address] MRSA by PCR [[id number]] Collected:07/07/12 1048 Order Status:Completed Updated:07/07/12 1211 Specimen Information:Nasopharyngeal / Nasopharyngeal Culture SOURCE NARES(NOSE) Comment: Testing performed at [facility];[address] [facility];[place] [address] RESULT NEGATIVE Comment: Testing performed at [facility];[address] [place] [address];[place] [address] 07/04 Blood cultures from [place] - 3 of 3 bottles - MSSA, resistant only to clindamycin and erythromycin PROBLEM LIST Principal Problem: *Bacteremia due to Staphylococcus Active Problems: Type II or unspecified type diabetes mellitus without mention of complication, not stated as uncontrolled Hypothyroidism Hypoalbuminemia Diabetes mellitus with ESRD (end-stage renal disease) Hypokalemia ESRD (end stage renal disease) on dialysis Febrile illness, acute Anemia of chronic kidney failure SIRS due to infectious process with acute organ dysfunction Blind left eye Polyarthritis Chest pain Hip pain, bilateral Knee pain, right Bilateral ankle pain ASSESSMENT & PLAN MSSA bacteremia - RONY was negative. With question of catheter infection, R IJ tunneled HD catheter was removed on 07/07 with ca theter tip sent for culture. He has a temporary HD catheter. Permacath to be placed when bl ood cultures documented to have cleared; blood cultures sent today. Reviewing the patient's case with Dr. Timmons, the patient also had history of R IJ and bilateral cephalic veins in 12 06. R IJ HD catheter was placed about the time he had the MSSA/S anginosus bacteremia in 2011 - this was attributed to either infection of a line he had at his LUE or from cu taneous source. R knee septic arthritis - Gram stain previously reported as GNC, but culture now reported to be S aureus. This is most likely will be MSSA. Appreciate Orthopedic intervention. History of rash - no note of cellulitis or active lesions currently but patient's skin zee y dry with excoriations. *d/c gentamicin *Anticipate 6-8 weeks of IV vancomycin therapy with hemodialysis Gouty arthritis DM ESRD on hemodialysis Left eye decreased vision - Ophthalmology consulted Code Status: Prior ELSIE LERNER MD 07/08/2012 [email or web address] kim - 07/07/2012 7:33 PM PST Progress Notes by Juan Timmons MD at 07/07/121932 Author: Juan Timmons MD Service: Nephrology Author Type: Physician Filed: 08/19/12 0850 Date of Service: 07/07/121932 Status: Signed Ged Tutor: Juan Timmons MD (Physician) [facility] Service: NEPHROLOGY progress Note Carol Potter 47 y.o. [id number] male [facility] Day: LOS: 1 day The patient is a 47 y.o. male with significant past medical history of diabetes complicated with end-stage renal disease, on maintenance hemodialysis Saturday, Saturday, Saturday, hypertension, hyperlipidemia, anemia of chronic kidney disease, gout, Admitted with Bacteremia/ fever. Nephrology consulted for evaluation and management of ESRD ONSET CHRONIC severity SEVERE Associated with fluid electrolyte acid base imbalances REQUIRING HD Pateint seen and examined Hd cancelled due to non functioning catheter, dr meyer consulted Says feel weak Denies cp, sob, nausea, vomiting, diarrhea, fever, [...] fistula lt arm Knee pain, right 07/06/2012 Past Surgical History Procedure Date Colonoscopy with egd 05/01/2012 Procedure: COLONOSCOPY W/ EGD; Surgeon: John Singleton MD; Location: [facility] ENDOSCOPY; Se rvice: Gastroenterology; Laterality: N/A; Av fistula placement 05/06/2012 Procedure: AV FISTULA; Surgeon: Oskar Meyer MD; Location: [facility] MAIN OR; Service: Vascul ar; Laterality: Left; Left arm possible right Unlisted procedure arthroscopy shoulder rt , ligaments Prescriptions prior to admission Medication Sig Dispense Refill ALBUTEROL IN Inhale 2 puffs into the lungs daily. amlodipine (NORVASC) 10 MG tablet Take 10 mg by mouth nightly. b complex-vitamin c-folic acid (NEPHRO-THU) 0.8 MG TABS Take 1 tablet by mouth daily. Cholecalciferol (VITAMIN D-3 PO) Take 1 tablet by mouth daily. citalopram (CELEXA) 20 MG tablet Take 20 mg by mouth nightly. ergocalciferol (DRISDOL) 26795 UNITS capsule Take 1 capsule by mouth once a week. 3 ca psule 0 levothyroxine (SYNTHROID, LEVOTHROID) 50 MCG tablet Take 50 mcg by mouth daily. omeprazole (PRILOSEC) 40 MG capsule Take 40 mg by mouth nightly. sodium bicarbonate 650 MG tablet Take 1,300 mg by mouth 2 (two) times daily. acyclovir (ZOVIRAX) 400 MG tablet Take 400 mg by mouth 2 (two) times daily. albuterol (PROVENTIL) (2.5 MG/3ML) 0.083% nebulizer solution Take 2.5 mg by nebulizatio n every 6 (six) hours as needed. ALPRAZolam (XANAX) 0.5 MG tablet Take 0.5 mg by mouth nightly as needed. aminocaproic acid (AMICAR) 500 MG tablet Take by mouth every 6 (six) hours. amlodipine (NORVASC) 10 MG tablet Take 10 mg by mouth nightly. calcitRIOL (ROCALTROL) 0.25 MCG capsule Take 0.25 mcg by mouth nightly. citalopram (CELEXA) 20 MG tablet Take 20 mg by mouth nightly. fish oil-omega-3 fatty acids 1000 MG capsule Take 2 g by mouth daily. folic acid-vitamin b complex-vitamin s-wtdadlxp-mwca (DIALYVITE) 3 MG TABS Take 1 table t by mouth nightly. HYDROcodone-acetaminophen (NORCO) 5-325 MG per tablet Take 1 tablet by mouth every 6 (s ix) hours as needed. May take 1-2 tabs q 4-6 hrs levothyroxine (SYNTHROID, LEVOTHROID) 25 MCG tablet Take 25 mcg by mouth nightly. Multiple Vitamins-Minerals (MULTIVITAMIN WITH MINERALS) tablet Take 1 tablet by mouth d aily. omeprazole (PRILOSEC) 20 MG capsule Take 20 mg by mouth daily. simvastatin (ZOCOR) 10 MG tablet Take 10 mg by mouth nightly. Not sure of dosage vitamin B wfyehgq-O-ggqtm acid (SUPER B VITAMINS) 0.8 MG TABS Take 1 tablet by mouth da juan with breakfast. nephrovite Allergies Allergen Reactions Lisinopril Other (See Comments) [...] BIOLOGICAL; 2 STEP KIDSUNEMPLOYED BEFORE WORKED AT [employer] [place] NONE ETOH QUIT 15 YEARS AGODRUGS: quit METHAMPHETAMINES PER P ATIENT after the ARF in mar 2012FATHER HAS COLON CANCER, HEART DISEASEMOTHER 15 YEARS AGONO FH KIDNEY PROBLEMS. Scheduled Medications aspirin 81 mg Oral Daily with breakfast bupivacaine-EPINEPHrine PF citalopram 20 mg Oral Nightly EPINEPHrine (1:1,000) epoetin alena 10,000 Units Intravenous Once in dialysis fentaNYL gentamicin 1.5 mg/kg (Adjusted) Intravenous See Admin Instructions heparin (porcine) Intracatheter Once in dialysis heparin (porcine) 5,000 Units Subcutaneous Q8H insulin aspart 0-3 Units Subcutaneous Nightly insulin aspart 0-6 Units Subcutaneous TID AC levothyroxine 75 mcg Oral Nightly lidocaine midazolam omeprazole 40 mg Oral QAM AC potassium chloride 30 mEq Oral Once potassium chloride 20 mEq Intravenous Once potassium chloride 40 mEq Intravenous Once simvastatin 10 mg Oral Nightly sodium chloride 10 mL Intravenous Q8H vancomycin 17 mg/kg Intravenous Once vancomycin 750 mg Intravenous See Admin Instructions vitamin B ydrsalz-S-ykfpk acid 1 tablet Oral Daily with breakfast DISCONTD: acyclovir 400 mg Oral BID DISCONTD: aminocaproic acid 500 mg Oral Q6H DISCONTD: calcitRIOL 0.25 mcg Oral Nightly DISCONTD: clindamycin 600 mg Intravenous Electronic Prepress Technician to OR DISCONTD: fish oil-omega-3 fatty acids 2 g Oral Daily DISCONTD: gentamicin 1 mg/kg (Adjusted) Intravenous Q8H DISCONTD: meperidine 50 mg Intravenous Once DISCONTD: omeprazole 20 mg Oral QAM AC DISCONTD: vitamin B kovfxmd-D-qbglm acid 1 tablet Oral Daily with breakfast Continuous Infusions dextrose DISCONTD: phenylephrine in D5W 320 mcg/mL DISCONTD: sodium chloride 30 mL/hr (07/07/12 1526) DISCONTD: sodium chloride PRN Medications acetaminophen, acetaminophen, albumin human, albuterol, ALPRAZolam, chlorhexidine, dextrose , dextrose, dextrose, glucagon, glucagon, HYDROcodone-acetaminophen, insulin aspart, nitroGL YCERIN, ondansetron, ondansetron, polyethylene glycol, DISCONTD: fentaNYL, DISCONTD: fentaNY L, DISCONTD: fentaNYL, DISCONTD: lidocaine (PF) 1 %, DISCONTD: meperidine, DISCONTD: midazol am, DISCONTD: midazolam, DISCONTD: morphine, DISCONTD: morphine, DISCONTD: naloxone DISCONTD: ondansetron Allergy: Allergies Allergen Reactions Lisinopril Other (See Comments) "makes me sweat and knocked me out" Penicillins Other (See Comments) unknown OBJECTIVE Vital Signs: BP 121/60 | Pulse 76 | Temp(Src) 98.6 F (37 C) (Oral) | Resp 15 | Ht 1.702 m (5' 7") | Wt 75.6 kg (166 lb 10.7 oz) | BMI 26.10 kg/m2 | SpO2 93% I&O Detailed Table: I/O last 3 completed shifts: In: 800 [I.V.:200; Other:600] Out: 147 [Other:137; Blood:10] Weight change: APPEARANCE: The patient is a pleasant sitting in no apparent distress. Appears in pain when ever he moves VITALS: Reviewed as listed. HEAD: NC/AT. EYES: Non-icteric sclera. +VE PALE CONJUCTIVA ENT: Buccal mucosa is moist. No gross ear or nasal problems noted. NECK: Supple. No raised JVD. Right IJ hemodialysis catheter site intact and no tenderness to palpation. LUNGS: Clear to auscultation bilaterally. HEART: S1, S2, no pericardial rub noted. ABDOMEN: Full, soft, no tenderness. Bowel sounds are present. EXTREMITIES: no pedal edema noted. B/L LE with chronic venous changes. Right knee effusion present, swelling present, warmth present, tenderness to palpation pres ent. Left knee minimally tender, only minimal effusion but not warm. Right ankle, there is some effusion present, some tenderness to palpation and mild decrease in range of motion. Left ankle is swollen, tender, hot and decreased range of gini on SKIN: Warm to touch. Healing rash. NEUROLOGIC: No gross focal motor deficit noted. PSYCH: The patient is alert and awake. BACK: no CVA tenderness noted Hemodialysis access: Left upper extremity brachiocephalic fistula with good bruit Left IJ hemodialysis catheter LABS: Recent Results (from the past 24 hour(s)) LACTIC ACID, PLASMA Collection Time 07/06/12 8:25 PM Component Value Range LACTIC ACID 2.8 (*) 0.4 - 2.0 mmol/L FLUID CULT W/GRAM STAIN Collection Time 07/06/12 11:08 PM Component Value Range Specimen Description SYNOVIAL FLUID RIGHT KNEE Specimen Description Value: Testing performed at [facility] [place] [address] GRAM STAIN WBC'S SEEN GRAM NEGATIVE COCCI ON CYTO SPIN SLIDE GRAM STAIN PHONED TO DR RAZA AT 0045 BY READBACK GRAM STAIN Value: Testing performed at [facility] [place] [address] CULTURE PENDING REPORT STATUS PENDING BODY FLUID CRYSTAL Collection Time 07/06/12 11:08 PM Component Value Range FLUID CRYSTALS PRESENT BODY FLUID CELL COUNT Collection Time 07/06/12 11:08 PM Component Value Range FLUID TYPE SYNOVIAL FLUID COLOR WHITE APPEARANCE HAZY RBC'S 15264 WBC'S 91387 Neutrophil Count, Fluid 98 LYMPHOCYTES 0 MONOCYTES/MACROPHAGES 2 EOSINOPHILS 0 Mesothelial Cells 0 OTHER CELLS 0 Cells Counted 100 FLUID CULT W/GRAM STAIN Collection Time 07/06/12 11:09 PM Component Value Range Specimen Description SYNOVIAL FLUID LEFT ANKLE Specimen Description Value: Testing performed at [facility];[address] [place] [address] GRAM STAIN WBC'S SEEN NO ORGANISMS SEEN ON CYTOSPIN SLIDE GRAM STAIN PHONED TO DR RAZA AT 0045 BY LJ READBACK GRAM STAIN Value: Testing performed at [facility] [place] [address] CULTURE PENDING REPORT STATUS PENDING POCT GLUCOSE Collection Time 07/06/12 11:32 PM Component Value Range GLUCOSE,POC SCREEN 135 (*) 65 - 99 mg/dL CK Collection Time 07/07/12 12:49 AM Component Value Range CPK 138 55 - 400 U/L CK MB Collection Time 07/07/12 12:49 AM Component Value Range MMB 1.2 0.5 - 3.6 ng/mL CK-MB Index 0.9 TROPONIN I Collection Time 07/07/12 12:49 AM Component Value Range TROPONIN I <0.02 0.00 - 0.10 ng/mL LIPASE Collection Time 07/07/12 12:49 AM Component Value Range LIPASE 56 (*) 73 - 393 U/L POCT GLUCOSE Collection Time 07/07/12 5:29 AM Component Value Range GLUCOSE,POC SCREEN 100 (*) 65 - 99 mg/dL CBC W/AUTO DIFF (REFLEX TO MANUAL) Collection Time 07/07/12 6:00 AM Component Value Range WBC 16.7 (*) 3.8 - 11.0 K/uL RBC 2.95 (*) 4.20 - 5.70 M/uL HGB 8.9 (*) 13.2 - 17.0 g/dL HCT 26.8 (*) 39.0 - 50.0 % MCV 91.0 80.0 - 100.0 fl MCH 30.1 27.0 - 34.0 pg MCHC 33.1 32.0 - 35.5 g/dL RDW SD 57.3 (*) 37 - 53 fl PLT 231 150 - 400 K/uL MPV 7.2 DIFF TYPE AUTOMATED NEUTROPHILS 90.9 (*) 40 - 75 % LYMPHOCYTES 2.4 (*) 15 - 48 % MONOCYTES 4.8 0 - 12 % EOSINOPHILS 1.7 0 - 7 % BASOPHILS 0.2 0 - 2 % NEUTROPHILS ABS 15.2 (*) 1.9 - 7.4 K/uL LYMPHOCYTES ABS 0.4 (*) 1.0 - 3.9 K/uL MONOCYTES ABS 0.8 0 - 0.8 K/uL EOSINOPHILS ABS 0.3 0 - 0.5 K/uL BASOPHILS ABS 0.0 0 - 0.1 K/uL Platelet Estimate ADEQUATE Diff Comment SLIDE SCANNED, AGREES WITH AUTOMATED RESULTS. MORPHOLOGY 1+ MAGNESIUM Collection Time 07/07/12 6:00 AM Component Value Range MAGNESIUM 1.9 1.7 - 2.4 mg/dL PHOSPHOROUS Collection Time 07/07/12 6:00 AM Component Value Range PHOSPHORUS 5.2 (*) 2.3 - 4.8 mg/dL COMPREHENSIVE METABOLIC PANEL Collection Time 07/07/12 6:00 AM Component Value Range SODIUM 132 (*) 135 - 143 mmol/L POTASSIUM 2.8 (*) 3.5 - 4.9 mmol/L CHLORIDE 91 (*) 99 - 109 mmol/L CO2 30 23 - 32 mmol/L ANION GAP AGAP 14 5 - 20 mmol/L GLUCOSE 87 65 - 99 mg/dL BUN 50 (*) 8 - 25 mg/dL CREATININE 8.04 (*) 0.70 - 1.30 mg/dL BUN/CREAT 6 CALCIUM 7.1 (*) 8.5 - 10.2 mg/dL TOTAL PROTEIN 6.4 6.3 - 8.2 g/dL Albumin 1.4 (*) 3.6 - 5.0 g/dL GLOBULIN 5.0 (*) 1.3 - 4.9 g/dL A/G 0.3 (*) 1.0 - 2.4 TBIL 0.6 0.1 - 1.5 mg/dL ALK PHOS 196 (*) 35 - 115 U/L AST 29 10 - 45 U/L ALT 10 10 - 65 U/L EGFR 8 (*) >60 mL/min/1.73m2 PROTIME-INR Collection Time 07/07/12 6:00 AM Component Value Range INR 1.2 0.9 - 3.5 C-REACTIVE PROTEIN Collection Time 07/07/12 6:00 AM Component Value Range CRP 23.0 (*) <0.5 mg/dL CK Collection Time 07/07/12 6:00 AM Component Value Range CPK 129 55 - 400 U/L CK MB Collection Time 07/07/12 6:00 AM Component Value Range MMB 0.8 0.5 - 3.6 ng/mL CK-MB Index 0.6 TROPONIN I Collection Time 07/07/12 6:00 AM Component Value Range TROPONIN I <0.02 0.00 - 0.10 ng/mL MRSA BY PCR Collection Time 07/07/12 10:48 AM Component Value Range SOURCE NARES(NOSE) RESULT NEGATIVE NEGATIVE POCT GLUCOSE Collection Time 07/07/12 12:18 PM Component Value Range GLUCOSE,POC SCREEN 90 65 - 99 mg/dL GENTAMICIN LEVEL, RANDOM Collection Time 07/07/12 1:43 PM Component Value Range GENTAMICIN, RANDOM 3.6 (*) 5.0 - 10.0 ug/mL VANCOMYCIN, RANDOM Collection Time 07/07/12 1:43 PM Component Value Range VANCOMYCIN,RANDOM 29.01 HEPATITIS B SURFACE ANTIGEN Collection Time 07/07/12 3:13 PM Component Value Range HEP B SURFACE AG NON REACTIVE NON REACTIVE POTASSIUM Collection Time 07/07/12 3:13 PM Component Value Range POTASSIUM 3.0 (*) 3.5 - 4.9 mmol/L FECAL OCCULT BLOOD (IN HOUSE) Collection Time 07/07/12 5:51 PM Component Value Range Fecal Occult Blood NEGATIVE NEGATIVE C DIFF TOXIN BY PCR (TAT 2HR IN HOUSE) Collection Time 07/07/12 5:52 PM Component Value Range Toxigenic C Difficile NEGATIVE NEGATIVE 027 NAP1 BI 027 NAP1 BI PRESUMPTIVE NEGATIVE FLUID CULT W/GRAM STAIN Collection Time 07/07/12 6:39 PM Component Value Range Specimen Description SYNOVIAL FLUID R KNEE Specimen Description Value: Testing performed [place] [facility] [place] [address] SPECIAL REQUESTS [facility] TO DO GRAM SPECIAL REQUESTS Value: Testing performed at [facility];[address] [facility];[place] [address] GRAM STAIN 2+ WBC'S SEEN GRAM STAIN NO ORGANISMS SEEN GRAM STAIN Value: Testing performed at [facility] [place] [address] CULTURE PENDING REPORT STATUS PENDING CYTOLOGY ORDER NOTIFICATION ONLY Collection Time 07/07/12 6:43 PM Component Value Range CYTOLOGY ORDER NOTIFICATION ONLY SEE PATHOLOGY ORDER FOR RESULT. IMAGING: MRI hip right without contrast [[id number]] Resulted:07/06/122307 Order Status:Completed Updated:07/06/122307 Narrative: Preliminary report MRI of right hip without contrast MRI left hip without contrast: No evidence for acute fracture. No acute bone findings seen. No significant hip joint effusion. Mild bilateral hip degenerative joint disease. Moderate diffuse anasarca . [facility] radiologist will read the final report in the a.m. Patient's old records and labs were reviewed in detail and summarized. PROBLEM LIST Principal Problem: *Bacteremia due to Staphylococcus Active Problems: Type II or unspecified type diabetes mellitus without mention of complication, not stated as uncontrolled Hypothyroidism Hypoalbuminemia Diabetes mellitus with ESRD (end-stage renal disease) Hypokalemia ESRD (end stage renal disease) on dialysis Febrile illness, acute Anemia of chronic kidney failure SIRS due to infectious process with acute organ dysfunction Blind left eye Polyarthritis Chest pain Hip pain, bilateral Knee pain, right Bilateral ankle pain ASSESSMENT & PLAN ESRD ON HD Cancelled hd today due to non functioning catheter Call dr meyer to remove it and place non tunneled hd catheter for 48 hours till blood c/s res ults negative Assess daily for need for hd & uf hd/ uf in am Orders put in the chart Fluid restriction 1 litre/24 hours Strict I & O Daily RFP Renal diet Daily weights will help with subsequent hd with uf Dose all meds per protocol for ESRD on hd ANEMIA OF CKD EPOGEN TO KEEP HGB 10-11 HYPOALBUMINEMIA INCREASE PROTEIN INTAKE HTN: WATCH BP CLOSELY DURING HOSPITALIZATION DM-2 STRICT GLYCEMIC CONTROL Hypokalemia REPLACE TO KEEP k GREATER THAN 3.8 Continuous telemetry monitoring ordered. Staphylococcus bacteremia, pending isolation and susceptibility. Prior history of MSSA bacteremia. Was treated for 6 weeks with vancomycin. In March, RONY was negative for endocarditis. Dr. Lerner, infectious disease, consulted BY DR DÍAZ. Recommends to continue the vancomycin and gentamicin for presumed endocarditis until ruled out by RONY. Polyarthritis. Dr. Raza consulted by dr díaz CASE DISCUSSED IN DETAIL WITH PATIENT/ HOSPITALIST/ dr meyer [facility] surgeon, ANSWERS ALL QUESTI ONS IN DETAIL, VERBALIZES UNDERSTANDING Time spend over 25 minutes of time spent evaluating the patient, reviewing the data, formul ating a plan and discussion with patient and care team, more than half of it spend in counse lling and coordination of care. JUAN TIMMONS MD 07/07/2012 onversion Transactio n, Provider Unknown - 07/07/2012 7:12 PM PST Progress Notes by Yusra Vallejo RN at 07/07/121911 Author: Yusra Vallejo RN Service: (none) Author Type: Registered Nurse Filed: 07/07/121917 Date of Service: 07/07/121911 Status: Signed Ged Tutor: Yusra Vallejo RN (Registered Nurse) Pt returned from OR settled back into room. Pt incontinent of stool, sent for O/P as sm kaylie we looking items in stool. Rt knee dressing c/d/i new tep hd cath to lt neck. onver quique Transaction, Provider Unknown - 07/07/2012 4:33 PM PST Progress Notes by Shyanne Campbell RN at 07/07/12 1633 Author: Shyanne Campbell RN Service: (none) Author Type: Registered Nurse Filed: 07/07/12 1637 Date of Service: 07/07/12 1633 Status: Signed Ged Tutor: Shyanne Campbell RN (Registered Nurse) Per radiology, no pneumothorax seen. Okay to use the line. Report called at 1630. onver quique Transaction, Provider Unknown - 07/07/2012 4:15 PM PST Progress Notes by Vaishnavi Mccall RN at 07/07/12 1615 Author: Vaishnavi Mccall RN Service: (none) Author Type: Registered Nurse Filed: 07/07/12 1616 Date of Service: 07/07/12 1615 Status: Signed Ged Tutor: Vaishnavi Mccall RN (Registered Nurse) X-ray in pre-op going into room 1. Vaishnavi Mccall RN 07/07/2012. 4:16 PM onver quique Transaction, Provider Unknown - 07/07/2012 4:09 PM PST Progress Notes by Vaishnavi Mccall RN at 07/07/12 1609 Author: Vaishnavi Mccall RN Service: (none) Author Type: Registered Nurse Filed: 07/07/12 1615 Date of Service: 07/07/12 1609 Status: Signed Ged Tutor: Vaishnavi Mccall RN (Registered Nurse) Dr. Meyer removed HD cath from R chest. Inserted new HD cath in L upper chest. Drsgs c/d/i. C hest x-ray ordered by Dr. Meyer. WATER MAIN INSTALLER HELPER still in room with pt. K-rider still infusing without nik walker. Vaishnavi Mccall RN 07/07/2012 4:11 PM onver quique Transaction, Provider Unknown - 07/07/2012 3:38 PM PST Progress Notes by Vaishnavi Mccall RN at 07/07/12 1538 Author: Vaishnavi Mccall RN Service: (none) Author Type: Registered Nurse Filed: 07/07/12 1541 Date of Service: 07/07/12 1538 Status: Signed Ged Tutor: Vaishnavi Mccall RN (Registered Nurse) Dr. Meyer into talk with pt. Going to do procedure with HD cath in pre-op room with WATER MAIN INSTALLER HELPER. Th en will go to OR for I&D of right knee. Pt signed consent with Dr. Meyer. Pt had BM on bed luca n. Pain when turning to L side. 20 meq K-rider infusing. Vaishnavi Mccall RN 07/07/2012 3:41 PM onver quique Transaction, Provider Unknown - 07/07/2012 3:17 PM PST Progress Notes by Kelley Toussaint RPH at 07/07/12 1517 Author: Kelley Toussaint RPH Service: (none) Author Type: Pharmacist Filed: 07/07/121516 Date of Service: 07/07/127 Status: Signed Ged Tutor: Kelley Toussaint RPH (Pharmacist) Vancomycin Monitoring Clinician Dosing: Pharmacy Dosing Recent Random level: 29.01 mcg/mL Drawn: 07/07 @ 1348 Plan per protocol: No dose today, unless patient gets HD Order trough levels: If no HD tomorrow, then pharmacy will order another random level. 07/07/2012 3:14 PM Pharmacist: Kelley Toussaint Duyen Solitario - 07/07/2012 1:03 PM PSTFormatting of this note might be different from the o riginal. Progress Notes by Duyen Raza MD at 07/07/12 1303 Author: Duyen Raza MD Service: Orthopedic Surgery Author Type: Physician Filed: 07/07/12 1307 Date of Service: 07/07/121302 Status: Signed Ged Tutor: Duyen Raza MD (Physician) [facility] Service: Orthopedic Surgery Progress Note Hospital Day: LOS:Hospital Day: 2 Post-Op Day: * No surgery date entered * SUBJECTIVE Patient Summary: Still with significant pain Events Overnight: Dialysis catheter not working at this time OBJECTIVE Vital Signs: Filed Vitals: 07/07/12 1219 BP: 116/55 Pulse: 85 Temp: 98 F (36.7 C) Resp: 16 SpO2: 96% Exam: No effusion Still very guarded with knee ROM DATA Lab Results Component Value Date WBC 16.7* 07/07/2012 HGB 8.9* 07/07/2012 HCT 26.8* 07/07/2012 MCV 91.0 07/07/2012 PLT 231 07/07/2012 Lab Results Component Value Date INR 1.2 07/07/2012 INR 1.1 05/06/2012 INR 1.3 05/01/2012 Lab Results Component Value Date CRP 23.0* 07/07/2012 CRP 33.0* 07/06/2012 CRP 10.0* 05/14/2012 CRP 11.0* 04/07/2012 Synovial fluid analysis +crystals cell count 44,000 gram stain - gram negative cocci cultures pending ASSESSMENT & PLAN Recommend OR for I&D knee Currently NPO per my order Plan for I&D later this pm, approx 1530 Risks and benefits were discussed, including but not limited to, infection, bleeding, neuro vascular injury, continued pain, fracture, need for future procedure, DVT, PE, cardiac arres t, loss of life or limb. He expressed understanding, all questions were satisfactorily addr essed, and he wished to proceed. Consent was obtained and was placed on the chart. DUYEN RAZA MD 07/07/2012 1:03 PM onversion Transacti on, Provider Unknown - 07/07/2012 12:39 PM PSTFormatting of this note might be different fro m the original. Progress Notes by Shyanne Benavides RN at 07/07/12 1238 Author: Shyanne Benavides RN Service: (none) Author Type: Program Counselor Filed: 07/07/12 1246 Date of Service: 07/07/121238 Status: Signed Ged Tutor: Shyanne Benavides RN (Program Counselor) CM met with spouse - she is staying in the room with pt. They are from [place] and are co nnected with [facility]. Spouse had concerns re: needing food vouchers (no deacon jesus - she is in touch with her case liner in [place] For more financial assistance) Provided 3 vouchers. She states there is no family available to bring food to the room for her. Spouse had been taking care of pt at home - has walker, W/C, shower chair and family member s nearby to help. She states she can no longer assist pt as she has injured her back. She st ates she would be able to obtain a hospital bed if needed. Explained that we would need a PT /OT eval when pt is more stable to determine safe d'c plan. She will d/w pt his preferences for care after d'c. Provided Healthcare POA Directives and notary information per request. CM to follow. onver quique Castillo, Provider Unknown - 07/06/2012 11:36 PM PST Progress Notes by Carmina Lara RPH at 07/06/12 8755 Author: Carmina Lara RPH Service: (none) Author Type: Pharmacist Filed: 07/06/122335 Date of Service: 07/06/122335 Status: Signed Ged Tutor: Carmina Lara RPH (Pharmacist) Clinical Pharmacy Note: Renal Monitoring Carol Potter 47 y.o. male Ht Readings from Last 1 Encounters: 07/06/12 1.702 m (5' 7") Wt Readings from Last 1 Encounters: 07/06/12 74.6 kg (164 lb 7.4 oz) Patient is on hemodialysis - usual schedule --. Pharmacy dosing for renal function per Dr. Díaz. OK to continue Acyclovir 400 mg PO BID (home med re-ordered). Pharmacy will continue to monitor for changes in medication orders and adjust accordingly. Carmina Lara PharmD 07/06/2012 11:34 PM onver quique Transaction, Provider Unknown - 07/06/2012 10:07 PM PST Progress Notes by Carmina Lara RPH at 07/06/122206 Author: Carmina Lara RPH Service: (none) Author Type: Pharmacist Filed: 07/06/122207 Date of Service: 07/06/122206 Status: Signed Ged Tutor: Carmina Lara RPH (Pharmacist) Clinical Pharmacy Note: Pharmacy Dosing Gentamicin (Conventional Dosing); Day 1 Carol Potter 47 y.o. male Ht Readings from Last 1 Encounters: 07/06/12 1.702 m (5' 7") Wt Readings from Last 1 Encounters: 07/06/12 72.576 kg (160 lb) [place] dosing weight: 68.7 kg Patient is on hemodialysis - usual schedule Sat-Sat-Sat WBC Date Value Range Status 07/06/2012 23.5* 3.8 - 11.0 K/uL Final Testing performed at [facility] [place] [address];[place] [address] INDICATION: Endocarditis Patient received a dose of Gentamicin on 07/04/12 (unsure of amount). Random level today at 1852 was 0.6 mcg/mL - within goal of less than 2 mcg/mL. Will continue Gentamicin 104 mg (1.5 mg/kg using ideal dosing weight) IV tonight and after each dialysis. Will monitor closely. Trough due 4 hours after next HD - 07/07 with goal less than or equal to 2.0 mcg/mL. Pharmacy will continue to monitor for changes in renal function and adjust accordingly. Carmina Lara PharmD 07/06/2012 10:03 PM onver quique Transaction, Provider Unknown - 07/06/2012 10:03 PM PST Progress Notes by Carmina Lara RPH at 07/06/122202 Author: Carmina Lara RPH Service: (none) Author Type: Pharmacist Filed: 07/06/122202 Date of Service: 07/06/122202 Status: Signed Ged Tutor: Carmina Lara RPH (Pharmacist) Clinical Pharmacy Note: Vancomycin Day 1 Pharmacy Dosing Vancomycin per Renal Failure Protocol for Patients on Hemodialysis Carol Jim47 y.o. male Ht Readings from Last 1 Encounters: 07/06/12 1.702 m (5' 7") Wt Readings from Last 1 Encounters: 07/06/12 72.576 kg (160 lb) WBC Date Value Range Status 07/06/2012 23.5* 3.8 - 11.0 K/uL Final Testing performed at [facility];[address] [place] [address];[place] [address] Usual dialysis schedule: Sat-Sat-Sat INDICATION: Endocarditis First dose of Vancomycin 1250 mg was given 07/06 at 1954. Will continue 750 mg IV after each hemodialysis. Trough monitoring is not necessary at this time. Pharmacy will order levels (with goal 15 to 20 mcg/mL) if deemed necessary and will adjust dose accordingly. Carmina Lara PharmOnelia 07/06/2012 10:01 PM docume nted in this encounter Plan of Treatment Not on filedocumented as of this encounter Procedures + +--------+ + + + | Procedure Name | Priori | Date/Time | Associated Diagnosis | Comments | | | ty | | | | + +--------+ + + + | HISTORICAL | Timed | 07/11/2012 | | Results for this | | MICROBIOLOGY RESULT | | 9:04 PM | | procedure are in the | | | | PST | | results section. | + +--------+ + + + | FL C ARM < 1 HOUR | Routin | 07/11/2012 | | Results for this | | | e | 4:56 PM | | procedure are in the | | | | PST | | results section. | + +--------+ + + + | HISTORICAL | Timed | 07/10/2012 | | Results for this | | MICROBIOLOGY RESULT | | 2:37 AM | | procedure are in the | | | | PST | | results section. | + +--------+ + + + | CULTURE, BLOOD, 2ND | Timed | 07/08/2012 | | Results for this | | SPECIMEN (NON-ORD) | | 4:36 PM | | procedure are in the | | | | PST | | results section. | + +--------+ + + + | CULTURE, BLOOD | Timed | 07/08/2012 | | Results for this | | | | 4:30 PM | | procedure are in the | | | | PST | | results section. | + +--------+ + + + | OVA AND PARASITE | Timed | 07/08/2012 | | Results for this | | EXAMINATION | | 6:09 AM | | procedure are in the | | | | PST | | results section. | + +--------+ + + + | CRYSTAL | STAT | 07/07/2012 | | Results for this | | IDENTIFICATION, BODY | | 6:39 PM | | procedure are in the | | FLUID | | PST | | results section. | + +--------+ + + + | HISTORICAL | Timed | 07/07/2012 | | Results for this | | MICROBIOLOGY RESULT | | 5:52 PM | | procedure are in the | | | | PST | | results section. | + +--------+ + + + | CULTURE, STOOL | Timed | 07/07/2012 | | Results for this | | | | 5:52 PM | | procedure are in the | | | | PST | | results section. | + +--------+ + + + | EXTERNAL LAB: OCCULT | Timed | 07/07/2012 | | Results for this | | BLOOD, SCREENING | | 5:51 PM | | procedure are in the | | | | PST | | results section. | + +--------+ + + + | XR CHEST 1 VIEW | Routin | 07/07/2012 | | Results for this | | | e | 4:26 PM | | procedure are in the | | | | PST | | results section. | + +--------+ + + + | MRSA NAAT | Timed | 07/07/2012 | | Results for this | | | | 10:48 AM | | procedure are in the | | | | PST | | results section. | + +--------+ + + + | ECHO TRANSESOPHAGEAL | Routin | 07/07/2012 | | Results for this | | (RONY) | e | 10:30 AM | | procedure are in the | | | | PST | | results section. | + +--------+ + + + | MEDICAL CYTOLOGY | Routin | 07/07/2012 | | Results for this | | | e | 12:00 AM | | procedure are in the | | | | PST | | results section. | + +--------+ + + + | MRI BRAIN WO | Routin | 07/06/2012 | | Results for this | | CONTRAST ANGIOGRAM | e | 11:13 PM | | procedure are in the | | HEAD WO CONTRAST | | PST | | results section. | + +--------+ + + + | MRI HIP RIGHT WO | Routin | 07/06/2012 | | Results for this | | CONTRAST | e | 10:14 PM | | procedure are in the | | | | PST | | results section. | + +--------+ + + + | MRI HIP LEFT WO | Routin | 07/06/2012 | | Results for this | | CONTRAST | e | 10:14 PM | | procedure are in the | | | | PST | | results section. | + +--------+ + + + | XR ANKLE LEFT 3 + VW | Routin | 07/06/2012 | | Results for this | | | e | 9:22 PM | | procedure are in the | | | | PST | | results section. | + +--------+ + + + | XR KNEE RIGHT 1 - 2 | Routin | 07/06/2012 | | Results for this | | VW | e | 9:22 PM | | procedure are in the | | | | PST | | results section. | + +--------+ + + + | XR CHEST 2 VIEWS | Routin | 07/06/2012 | | Results for this | | | e | 6:15 PM | | procedure are in the | | | | PST | | results section. | + +--------+ + + + | CULTURE, BLOOD, 2ND | Timed | 07/06/2012 | | Results for this | | SPECIMEN (NON-ORD) | | 6:04 PM | | procedure are in the | | | | PST | | results section. | + +--------+ + + + | CULTURE, BLOOD | Timed | 07/06/2012 | | Results for this | | | | 6:00 PM | | procedure are in the | | | | PST | | results section. | + +--------+ + + + documented in this encounter Results HISTORICAL MICROBIOLOGY RESULT (07/11/2012 9:04 PM PST) + + | Specimen | + + | Stool specimen | | (specimen) | + + + + + | Narrative | Performed At | + + + | Toxigenic C Difficile NEGATIVE Testing | EXTERNAL LAB | | performed at [facility];[address] [place] [address];[place] [address] 027 NAP1 BI | | | 027 NAP1 BI PRESUMPTIVE NEGATIVE | | | Detection of 027 NAP1 BI strains of C. difficile is presumptive and | | | for epidemiological purposes and not intended to guide or monitor | | | treatment for C. difficile infections. Testing performed at [facility];[address] | | [facility];[place] [address] | | + + + + +---------+ + + | Performing | Address | City/State/Zipcode | Phone Number | | Organization | | | | + +---------+ + + | EXTERNAL LAB | | | | + +---------+ + + FL C-Arm < 1 Hour (07/11/2012 4:56 PM PST) + + | Specimen | + + | | + + + + + | Narrative | Performed At | + + + | HISTORY: 47-year-old male, permacath TECHNIQUE: 1. Single | | | view of the upper chest via C-arm Prior study for review : None | | | FINDINGS: Dual lumen catheter is looped superimposed over the | | | medial left clavicle, terminating at the brachiocephalic confluence, | | | directed caudad No evidence of adversity Extrinsic monitoring | | | leads. IMPRESSION: 1. Dual lumen catheter as above | | | | | + + + + + | Procedure Note | + + | Khalif Palm Conversion - 02/13/2019 4:30 PM PDT HISTORY: 47-year-old male, permacath | | TECHNIQUE: 1. Single view of the upper chest via C-armPrior study for review : None | | FINDINGS: Dual lumen catheter is looped superimposed over the medial left clavicle, | | terminating at the brachiocephalic confluence, directed caudad No evidence of adversity | | Extrinsic monitoring leads. IMPRESSION: 1. Dual lumen catheter as above Electronically | | signed by Givoany Espitia MD on 07/11/2012 5:24 PM | | | |FINDINGS: | | | |Dual lumen catheter is looped superimposed over the medial left clavicle, terminating at th e brachiocephalic confluence, directed caudad | | | |No evidence of adversity | | | |Extrinsic monitoring leads. | | | |IMPRESSION: | | | |1. Dual lumen catheter as above | | | | | | | | | + + HISTORICAL MICROBIOLOGY RESULT (07/10/2012 2:37 AM PST) + + | Specimen | + + | Stool specimen | | (specimen) | + + + + + | Narrative | Performed At | + + + | Toxigenic C Difficile NEGATIVE Testing | EXTERNAL LAB | | performed at [facility];[address] [facility];[place] [address] 027 NAP1 BI | | | 027 NAP1 BI PRESUMPTIVE NEGATIVE | | | Detection of 027 NAP1 BI strains of C. difficile is presumptive and | | | for epidemiological purposes and not intended to guide or monitor | | | treatment for C. difficile infections. Testing performed at [facility];[address] | [facility];[place] [address] | | + + + + +---------+ + + | Performing | Address | City/State/Zipcode | Phone Number | | Organization | | | | + +---------+ + + | EXTERNAL LAB | | | | + +---------+ + + Culture, Blood, 2nd Specimen (07/08/2012 4:36 PM PST) + + | Specimen | + + | Blood specimen | | (specimen) | + + + + + | Narrative | Performed At | + + + | Specimen Description BLOOD, PERIPHERAL DRAW | EXTERNAL LAB | | Testing performed | | | at [facility];[address] [place] [address];[place] [address] SPECIAL REQUESTS | | | RAC | | | Testing performed at [facility];[address] [place] [address];[place] [address] | | | CULTURE NO GROWTH IN 5 DAYS. | | | Testing | | | performed at [facility] [place] [address] [facility] [place] [address] REPORT STATUS | | | 07/14/2012 FINAL | | + + + + +---------+ + + | Performing | Address | City/State/Zipcode | Phone Number | | Organization | | | | + +---------+ + + | EXTERNAL LAB | | | | + +---------+ + + Culture, Blood (07/08/2012 4:30 PM PST) + + | Specimen | + + | Blood specimen | | (specimen) | + + + + + | Narrative | Performed At | + + + | Specimen Description BLOOD, PERIPHERAL DRAW | EXTERNAL LAB | | Testing performed | | | at [facility];[address] [facility];[place] [address] SPECIAL REQUESTS | | | R HAND | | | Testing performed at [facility];[address] [facility];[place] [address] | | | CULTURE NO GROWTH IN 5 DAYS. | | | Testing | | | performed at [facility] [place] [address] [place] [address] REPORT STATUS | | | 07/14/2012 FINAL | | + + + + +---------+ + + | Performing | Address | City/State/Zipcode | Phone Number | | Organization | | | | + +---------+ + + | EXTERNAL LAB | | | | + +---------+ + + Ova and Parasite Examination (07/08/2012 6:09 AM PST) + + | Specimen | + + | Stool specimen | | (specimen) | + + + + + | Narrative | Performed At | + + + | Specimen Description STOOL | EXTERNAL LAB | | Testing performed at [facility] | | [address];[place] [address] OVA AND PARASITES | | | SPECIMEN DESCRIPTION: UNFORMED | | | NO OVA OR PARASITES SEEN | | | Testing performed at [facility], [address] [place] [address] | | | [place] [address] REPORT STATUS | | | 07/11/2012 FINAL | | + + + + +---------+ + + | Performing | Address | City/State/Zipcode | Phone Number | | Organization | | | | + +---------+ + + | EXTERNAL LAB | | | | + +---------+ + + Crystal Identification, Body Fluid (07/07/2012 6:39 PM PST) + + | Specimen | + + | Body fluid sample | | (specimen) | + + + + + | Narrative | Performed At | + + + | FLUID CRYSTALS NO CRYSTALS SEEN | EXTERNAL LAB | | Testing performed at [facility], [address] [place] | | | [address] | | + + + + +---------+ + + | Performing | Address | City/State/Zipcode | Phone Number | | Organization | | | | + +---------+ + + | EXTERNAL LAB | | | | + +---------+ + + HISTORICAL MICROBIOLOGY RESULT (07/07/2012 5:52 PM PST) + + | Specimen | + + | Stool specimen | | (specimen) | + + + + + | Narrative | Performed At | + + + | Toxigenic C Difficile NEGATIVE Testing | EXTERNAL LAB | | performed at [facility] [facility];[place] [address] 027 NAP1 BI | | | 027 NAP1 BI PRESUMPTIVE NEGATIVE | | | Detection of 027 NAP1 BI strains of C. difficile is presumptive and | | | for epidemiological purposes and not intended to guide or monitor | | | treatment for C. difficile infections. Testing performed at [facility];[address] | | | [facility];[place] [address] | | + + + + +---------+ + + | Performing | Address | City/State/Zipcode | Phone Number | | Organization | | | | + +---------+ + + | EXTERNAL LAB | | | | + +---------+ + + Culture, Stool (07/07/2012 5:52 PM PST) + + | Specimen | + + | Stool specimen | | (specimen) | + + + + + | Narrative | Performed At | + + + | Specimen Description STOOL | EXTERNAL LAB | | Testing performed at [facility];[address] | | | [facility];[place] [address] CULTURE | | | NO SALMONELLA, SHIGELLA, CAMPYLOBACTER OR E. COLI 0157 | | | ISOLATED. IF A | | | YERSINIA OR VIBRIO IS SUSPECTED, PLEASE CONTACT THE MICRO LAB FOR | | | SPECIAL TESTING. | | | IF A SHIGATOXIN PRODUCING ORGANISM IS SUSPECTED, PLEASE CONTACT THE | | | MICRO LAB FOR SPECIAL TESTING. | | | Testing performed at [facility], [address] [facility], | | | [place] [address] REPORT STATUS | | | 07/10/2012 FINAL | | + + + + +---------+ + + | Performing | Address | City/State/Zipcode | Phone Number | | Organization | | | | + +---------+ + + | EXTERNAL LAB | | | | + +---------+ + + External Lab: Occult Blood, Screening (07/07/2012 5:51 PM PST) + + | Specimen | + + | Stool specimen | | (specimen) | + + + + + | Narrative | Performed At | + + + | Fecal Occult Blood NEGATIVE Testing | EXTERNAL LAB | | performed at [facility];[address] [place] [address];[place] [address] | | + + + + +---------+ + + | Performing | Address | City/State/Zipcode | Phone Number | | Organization | | | | + +---------+ + + | EXTERNAL LAB | | | | + +---------+ + + XR Chest 1 Vw (07/07/2012 4:26 PM PST) + + | Specimen | + + | | + + + + + | Narrative | Performed At | + + + | HISTORY: Dialysis catheter placement. A single frontal view of | | | the chest. COMPARISON: 07/06/12. FINDINGS: Left IJ Ibrahima | | | catheter tip at the sinoatrial junction, without pneumothorax. Right | | | IJ dual lumen catheter has been removed. Heart size is normal. | | | Lungs are clear. IMPRESSION: 1. Left IJ Ibrahima catheter tip | | | at the sinoatrial junction, with removal of right IJ central line. 2. | | | No pneumothorax. Electronically signed by Wilton Lentz MD on | | | 07/07/2012 4:30 PM | | + + + + + | Procedure Note | + + | Khalif Palm Conversion - 02/13/2019 4:30 PM PDT HISTORY:Dialysis catheter placement. A | | single frontal view of the chest. COMPARISON:07/06/12. FINDINGS:Left IJ Ibrahima catheter | | tip at the sinoatrial junction, without pneumothorax. Right IJ dual lumen catheter has | | been removed. Heart size is normal. Lungs are clear. IMPRESSION:1. Left IJ Ibrahima | | catheter tip at the sinoatrial junction, with removal of right IJ central line.2. No | | pneumothorax. | |07/06/12. | | | |FINDINGS: | |Left IJ Ibrahima catheter tip at the sinoatrial junction, without pneumothorax. Right IJ du al lumen catheter has been removed. Heart size is normal. Lungs are clear. | | | |IMPRESSION: | |1. Left IJ Ibrahima catheter tip at the sinoatrial junction, with removal of right IJ centr al line. | |2. No pneumothorax. | | | | | + + MRSA NAAT (07/07/2012 10:48 AM PST) + + | Specimen | + + | | + + + + + | Narrative | Performed At | + + + | SOURCE NARES(NOSE) | EXTERNAL LAB | | Testing performed at [facility];[address] [place] [address];[place] [address] MRSA PCR | | | NEGATIVE Testing performed at | | | [address];[place] [address] | | + + + + +---------+ + + | Performing | Address | City/State/Zipcode | Phone Number | | Organization | | | | + +---------+ + + | EXTERNAL LAB | | | | + +---------+ + + ECHO Transesophageal (RONY) (07/07/2012 10:30 AM PST) + + | Specimen | + + | | + + + + + | Narrative | Performed At | + + + | Patient Name: CAROL POTTER Date of : 1965 | | | Performing Physician: Jayy Heller MD | | | | | | INDICATIONS R/O ENDOCARDITIS CONCLUSIONS | | | 1. Overall left ventricular systolic function is normal | | | with, an EF between 60 - 65 %. 2. No vegetation visualized. | | | FINDINGS -------- Procedure: Transesophageal echocardiogram with | | | spectral and color flow Doppler was performed. Procedure: RONY was | | | done at the beside in the fasting state. Informed consent was | | | obtained after benefits and risks of the procedure were discussed with | | | the patient including but not limited to the potential for esophageal | | | puncture and . The oropharynx was anesthetized with 1% | | | Hurricane spray. After conscious sedation, the transesophageal probe | | | was advanced and placed in the esophagus and multiple projections of | | | the cardiovascular structures were acquired and recorded. This was | | | followed by advancement of the probe into the stomach for | | | transgastric imaging. Finally, interrogation of the descending aorta | | | and arch was performed. The probe was removed. The patient | | | tolerated the procedure well. There were no immediate | | | complications. 2 D, pulsed and continuous wave form and color | | | images were interpreted in real time. Medications: 4 mg of Versed and | | | Study quality: This was a technically adequate study. Left | | | Ventricle: The left ventricle size is normal. Left Ventricle: Left | | | Ventricle: Overall left ventricular systolic function is normal with, | | | an EF between 60 - 65 %. Left Atrium: No LA/ OSCAR thrombus. Right | | | Ventricle: The right ventricle is normal in size and function. Right | | | Atrium: The right atrial size is normal. Interatrial Septum: No shunt | | | seen with color Doppler. Interatrial Septum: No shunt seen with | | | bubble study. Aortic Valve: The aortic valve is trileaflet, and | | | appears structurally normal. No aortic stenosis or regurgitation. | | | Aortic Valve: No vegetation visualized. Mitral Valve: The mitral | | | valve is normal. Mitral Valve: There is trace mitral regurgitation. | | | Mitral Valve: No vegetation was seen. Tricuspid Valve: The tricuspid | | | valve appears structurally normal. Trace/Mild (physiologic) | | | regurgitation. Tricuspid Valve: Trace tricuspid regurgitation | | | present. Tricuspid Valve: No vegetation visualized. Pulmonic Valve: | | | The pulmonic valve is normal. Pulmonic Valve: Trace pulmonic | | | regurgitation. Aorta: Ascending aorta, aortic arch and descending | | | thoracic aorta are of normal caliber with no significant | | | atherosclerotic disease. Pulmonary Veins: All pulmonary veins appear | | | normal. Pulmonary Veins: The flow patterns, measured by Doppler, | | | appear normal. Pericardium: There is no pericardial effusion. | | | MEASUREMENTS Lead Operator: PAUL Authenticated by: | | | Jayy Heller MD Report Date/Time: 07-07-2012 14:01:40 | | + + + + + | Procedure Note | + + | Khalif Palm - 02/13/2019 4:30 PM PDT Patient Name: Mohinder POTTER of | | : 1965 Performing Physician: Jayy Heller | | INDICATIONS R | | /O ENDOCARDITIS CONCLUSIONS 1. Overall left ventricular systolic function is | | normal with, an EF between 60 - 65 %.2. No vegetation visualized. | | FINDINGS--------Procedure: Transesophageal echocardiogram with spectral and color flow | | Doppler was performed.Procedure: RONY was done at the beside in the fasting state. | | Informed [...] were interpreted | | in real time.Medications: 4 mg of Versed andStudy quality: This was a technically | | adequate study.Left Ventricle: The left ventricle size is normal.Left Ventricle:Left | | Ventricle: Overall left ventricular systolic function is normal with, an EF between 60 - | | 65 %.Left Atrium: No LA/ OSCAR thrombus.Right Ventricle: The right ventricle is normal in | | size and function.Right Atrium: The right atrial size is normal.Interatrial Septum: No | | shunt seen with color Doppler.Interatrial Septum: No shunt seen with bubble study.Aortic | | Valve: The aortic valve is trileaflet, and appears structurally normal. No aortic | | stenosis or regurgitation.Aortic Valve: No vegetation visualized.Mitral Valve: The | | mitral valve is normal.Mitral Valve: There is trace mitral regurgitation.Mitral Valve: | | No vegetation was seen.Tricuspid Valve: The tricuspid valve appears structurally normal. | | Trace/Mild (physiologic) regurgitation.Tricuspid Valve: Trace tricuspid regurgitation | | present.Tricuspid Valve: No vegetation visualized.Pulmonic Valve: The pulmonic valve is | | normal.Pulmonic Valve: Trace pulmonic regurgitation.Aorta: Ascending aorta, aortic arch | | and descending thoracic aorta are of normal caliber with no significant atherosclerotic | | disease.Pulmonary Veins: All pulmonary veins appear normal.Pulmonary Veins: The flow | | patterns, measured by Doppler, appear normal.Pericardium: There is no pericardial | | effusion. MEASUREMENTS Lead Operator: DEBIuthenticated by: Jayy Heller | | MDReport Date/Time: 07-07-2012 14:01:40 | |Interatrial Septum: No shunt seen with color Doppler. | |Interatrial Septum: No shunt seen with bubble study. | |Aortic Valve: The aortic valve is trileaflet, and appears structurally normal. No aortic st enosis or regurgitation. | |Aortic Valve: No vegetation visualized. | |Mitral Valve: The mitral valve is normal. | |Mitral Valve: There is trace mitral regurgitation. | |Mitral Valve: No vegetation was seen. | |Tricuspid Valve: The tricuspid valve appears structurally normal. Trace/Mild (physiologic) regurgitation. | |Tricuspid Valve: Trace tricuspid regurgitation present. | |Tricuspid Valve: No vegetation visualized. | |Pulmonic Valve: The pulmonic valve is normal. | |Pulmonic Valve: Trace pulmonic regurgitation. | |Aorta: Ascending aorta, aortic arch and descending thoracic aorta are of normal caliber wit h no significant atherosclerotic disease. | |Pulmonary Veins: All pulmonary veins appear normal. | |Pulmonary Veins: The flow patterns, measured by Doppler, appear normal. | |Pericardium: There is no pericardial effusion. | | | |MEASUREMENTS | | | | | |Lead Operator: PAUL | |Authenticated by: Jayy Heller MD | |Report Date/Time: 07-07-2012 14:01:40 | + + Medical Cytology (07/07/2012 12:00 AM PST) + + | Specimen | + + | | + + + + + | Narrative | Performed At | + + + | CASE: [id number] PATIENT: CAROL POTTER Cytology Report | EXTERNAL LAB | | Gross Description: 20 ML CLOUDY YELLOW FLUID WITH MULTIPLE CORES AND | | | FRAGMENTS Lab Preparation: 1 MONOLAYER, 1 CYTOLOGY CELL BLOCK | | | Specimen: A. NEEDLE SAMPLING, RIGHT KNEE CYTOLOGIC | | | INTERPRETATION: KNEE, RIGHT, NEEDLE SAMPLING: NEGATIVE FOR MALIGNANT | | | CELLS INFLAMMATION PRESENT SPECIMEN ADEQUACY: Satisfactory for | | | Evaluation Performing Laboratory: Professional interpretation was | | | performed by [facility], [facility], [address] | | | [place] [address] (Machine Packaging Technician: Trevor | | Samantha Dan M.D.; CLIA#: [id number]). Technical preparation was | | | performed by [facility], [address] [facility] | | | [place] [address] (Machine Packaging Technician: Duyen Baez M.D.; CLIA#: | | | [id number]). Kalpana Palomo CT(ASCP) | | | Electronically signed Jul 09, 2012 9:34:15AM Trevor Dan MD | | | Electronically signed Jul 09, 2012 3:38:43PM | | + + + + +---------+ + + | Performing | Address | City/State[facility] | Phone Number | | Organization | | | | + +---------+ + + | EXTERNAL LAB | | | | + +---------+ + + MRI Brain Wo MRA Head Wo (07/06/2012 11:13 PM PST) + + | Specimen | + + | | + + + + + | Narrative | Performed At | + + + | MRI OF THE BRAIN WITHOUT CONTRAST PLUS [place] [facility] YANG MRA | | | 07/06/2012 HISTORY: Staphylococcal bacteremia. Clinical concern | | | for septic embolization and stroke. COMPARISON: None. | | | TECHNIQUE: 3-D [id number] [place] of [place] MRA with | | | multiprojectional 3-D MIP reconstructions. Axial diffusion, axial | | | gradient echo, axial FLAIR, repeat axial FLAIR, axial T2, axial T1 and | | | sagittal FLAIR. FINDINGS: No evidence for intracranial restricted | | | diffusion. No evidence for cerebral hemorrhage, mass effect, midline | | | shift or obstructive hydrocephalus. Minimal generalized cerebral | | | volume loss. There is amorphous abnormal T2 hyperintensity in the | | | central aylin. The sagittal and axial FLAIR sequences are motion | | | limited. Cerebral white matter disease if any is minimal. The | | | [place] MRA shows no evidence for high-grade stenosis, | | | central vessel occlusion or [place] saccular aneurysm. | | | Posterior communicating arteries are well developed bilaterally. | | | Extracranially, there are findings of moderately prominent but | | | nonspecific and age-indeterminate maxillary sinus mucosal thickening. | | | Minimal mastoid fluid signal. IMPRESSION: 1. No evidence for | | | acute hemorrhage, stroke or loculated fluid collection intracranially. | | | Infection evaluation is somewhat limited without contrast | | | administration. 2. Cerebral white matter disease is minimal and | | | there is moderate but nonspecific central pontine amorphous T2 | | | hyperintensity. The differential could include microvascular ischemic | | | changes or metabolic process. 3. Unremarkable screening [place] of | | | Yang MRA. 4. Maxillary sinus mucosal thickening and mild mastoid | | | fluid signal. Electronically signed by Isaac Desir MD on | | | Jul 07 2012 7:35AM | | + + + + + | Procedure Note | + + | Néstor, Rad Conversion - 02/13/2019 4:30 PM PDT MRI OF THE BRAIN WITHOUT CONTRAST PLUS | | [facility] OF YANG MRA 07/06/2012 HISTORY: Staphylococcal bacteremia. Clinical concern for | | septic embolization and stroke. COMPARISON: None. TECHNIQUE: 3-D [id number] [place] | | of Yang MRA with multiprojectional 3-D MIP reconstructions. Axial diffusion, axial | | gradient echo, axial FLAIR, repeat axial FLAIR, axial T2, axial T1 and sagittal FLAIR. | | FINDINGS: No evidence for intracranial restricted diffusion. No evidence for cerebral | | hemorrhage, mass effect, midline shift or obstructive hydrocephalus. Minimal generalized | | cerebral volume loss. There is amorphous abnormal T2 hyperintensity in the central | | aylin. The sagittal and axial FLAIR sequences are motion limited. Cerebral white matter | | disease if any is minimal. The [place] MRA shows no evidence for high-grade | | stenosis, central vessel occlusion or [place] saccular aneurysm. Posterior | | communicating arteries are well developed bilaterally. Extracranially, there are | | findings of moderately prominent but nonspecific and age-indeterminate maxillary sinus | | mucosal thickening. Minimal mastoid fluid signal. IMPRESSION:1. No evidence for acute | | hemorrhage, stroke or loculated fluid collection intracranially. Infection evaluation is | | somewhat limited without contrast administration. 2. Cerebral white matter disease is | | minimal and there is moderate but nonspecific central pontine amorphous T2 | | hyperintensity. The differential could include microvascular ischemic changes or | | metabolic process. 3. Unremarkable screening [place] of [place] MRA. 4. Maxillary sinus | | mucosal thickening and mild mastoid fluid signal. Electronically signed by Isaac Morgan | | MD Ronel on Jul 07 2012 7:35AM | |3. Unremarkable screening [place] of [place] MRA. | | | |4. Maxillary sinus mucosal thickening and mild mastoid fluid signal. | | | | Electronically signed by Isaac Desir MD on Jul 07 2012 7:35AM | + + MRI Hip Right wo Contrast (07/06/2012 10:14 PM PST) + + | Specimen | + + | | + + + + + | Narrative | Performed At | + + + | MRI OF THE LEFT AND RIGHT HIP HISTORY: Bilateral hip pain. | | | Sepsis. Renal failure. TECHNIQUE: Multiplanar multisequence MR | | | images of the hips and pelvis were obtained without contrast. | | | FINDINGS: Some of the images are limited due to motion artifact. | | | No acute fracture, bone contusion, or osteonecrosis. Left Hip: | | | Small physiologic amount of fluid at the joint capsule. Increased T2 | | | signal within the left obturator internus and externus muscles and | | | left pectineus muscle. No trochanteric or iliopsoas bursal fluid | | | collection. Left acetabular labrum is unremarkable on this | | | nonarthrogram exam. Articular cartilage is within normal limits. There | | | is increased T2 signal within the left gluteus kristyn muscle. Slight | | | increased T2 signal at the distal left gluteus medius muscle. | | | Right Hip: Small physiologic amount of fluid at the joint capsule. No | | | iliopsoas or trochanteric bursal fluid collection. Slight increased T2 | | | signal within the right gluteus minimus muscle and right obturator | | | externus and pectineus muscles. There is an approximately 3.6 x 1.4 | | | x 1.7 cm lymph node at the right inguinal region. The right acetabular | | | labrum is grossly unremarkable on this nonarthrogram exam. Articular | | | cartilage at the right hip joint is within normal limits. No | | | pelvic free fluid or lymphadenopathy. There is diffuse | | | subcutaneous edema at the visualized lower back and pelvis. | | | IMPRESSION: 1. No MR evidence of osteomyelitis at the pelvis or hips. | | | 2. No abnormal hip joint effusions. 3. Increased T2 signal within | | | the left obturator internus and externus muscles, left pectineus | | | muscle, left gluteus kristyn and medius muscles, right gluteus minimus | | | muscle, right obturator externus and pectineus muscles. This is | | | nonspecific. It may be inflammatory in etiology. 4. There is an | | | enlarged right inguinal lymph node which may be inflammatory or | | | neoplastic in etiology. Clinical correlation is requested. 5. Diffuse | | | subcutaneous edema at the visualized lower back and pelvis. A | | | preliminary report was given by Dr. Leena Espino on 07/06/2012, time | | | 11:08 p.m. Electronically signed by Sami Heath MD on Jul 07 2012 | | | 4:14PM | | + + + + + | Procedure Note | + + | Khalif Palm Conversion - 02/13/2019 4:30 PM PDT MRI OF THE LEFT AND RIGHT HIP HISTORY: | | Bilateral hip pain. Sepsis. Renal failure. TECHNIQUE: Multiplanar multisequence MR | | images of the hips and pelvis were obtained without contrast. FINDINGS: Some of the | | images are limited due to motion artifact. No acute fracture, bone contusion, or | | osteonecrosis. Left Hip: Small physiologic amount of fluid at the joint capsule. | | Increased T2 signal within the left obturator internus and externus muscles and left | | pectineus muscle. No trochanteric or iliopsoas bursal fluid collection. Left acetabular | | labrum is unremarkable on this nonarthrogram exam. Articular cartilage is within normal | | limits. There is increased T2 signal within the left gluteus kristyn muscle. Slight | | increased T2 signal at the distal left gluteus medius muscle. Right Hip: Small | | physiologic amount of fluid at the joint capsule. No iliopsoas or trochanteric bursal | | fluid collection. Slight increased T2 signal within the right gluteus minimus muscle and | | right obturator externus and pectineus muscles. There is an approximately 3.6 x 1.4 x | | 1.7 cm lymph node at the right inguinal region. The right acetabular labrum is grossly | | unremarkable on this nonarthrogram exam. Articular cartilage at the right hip joint is | | within normal limits. No pelvic free fluid or lymphadenopathy. There is diffuse | | subcutaneous edema at the visualized lower back and pelvis. IMPRESSION:1. No MR evidence | | of osteomyelitis at the pelvis or hips.2. No abnormal hip joint effusions.3. Increased | | T2 signal within the left obturator internus and externus muscles, left pectineus | | muscle, left gluteus kristyn and medius muscles, right gluteus minimus muscle, right | | obturator externus and pectineus muscles. This is nonspecific. It may be inflammatory in | | etiology.4. There is an enlarged right inguinal lymph node which may be inflammatory or | | neoplastic in etiology. Clinical correlation is requested.5. Diffuse subcutaneous edema | | at the visualized lower back and pelvis. A preliminary report was given by Dr. Stern | | Srinivas on 07/06/2012, time 11:08 p.m. Electronically signed by Sami Heath MD on Jul 07 | 2012 4:14PM | |muscles. This is nonspecific. It may be | |inflammatory in etiology. | |4. There is an enlarged right inguinal lymph node which may be inflammatory or neoplastic i n etiology. Clinical correlation is requested. | |5. Diffuse subcutaneous edema at the visualized lower back and pelvis. | | | |A preliminary report was given by Dr. Leena Espino on 07/06/2012, time 11:08 p.m. | | | | Electronically signed by Sami Heath MD on Jul 07 2012 4:14PM | + + MRI Hip Left wo Contrast (07/06/2012 10:14 PM PST) + + | Specimen | + + | | + + + + + | Narrative | Performed At | + + + | MRI OF THE LEFT AND RIGHT HIP HISTORY: Bilateral hip pain. | | | Sepsis. Renal failure. TECHNIQUE: Multiplanar multisequence MR | | | images of the hips and pelvis were obtained without contrast. | | | FINDINGS: Some of the images are limited due to motion artifact. | | | No acute fracture, bone contusion, or osteonecrosis. Left Hip: | | | Small physiologic amount of fluid at the joint capsule. Increased T2 | | | signal within the left obturator internus and externus muscles and | | | left pectineus muscle. No trochanteric or iliopsoas bursal fluid | | | collection. Left acetabular labrum is unremarkable on this | | | nonarthrogram exam. Articular cartilage is within normal limits. There | | | is increased T2 signal within the left gluteus kristyn muscle. Slight | | | increased T2 signal at the distal left gluteus medius muscle. | | | Right Hip: Small physiologic amount of fluid at the joint capsule. No | | | iliopsoas or trochanteric bursal fluid collection. Slight increased T2 | | | signal within the right gluteus minimus muscle and right obturator | | | externus and pectineus muscles. There is an approximately 3.6 x 1.4 | | | x 1.7 cm lymph node at the right inguinal region. The right acetabular | | | labrum is grossly unremarkable on this nonarthrogram exam. Articular | | | cartilage at the right hip joint is within normal limits. No | | | pelvic free fluid or lymphadenopathy. There is diffuse | | | subcutaneous edema at the visualized lower back and pelvis. | | | IMPRESSION: 1. No MR evidence of osteomyelitis at the pelvis or hips. | | | 2. No abnormal hip joint effusions. 3. Increased T2 signal within | | | the left obturator internus and externus muscles, left pectineus | | | muscle, left gluteus kristyn and medius muscles, right gluteus minimus | | | muscle, right obturator externus and pectineus muscles. This is | | | nonspecific. It may be inflammatory in etiology. 4. There is an | | | enlarged right inguinal lymph node which may be inflammatory or | | | neoplastic in etiology. Clinical correlation is requested. 5. Diffuse | | | subcutaneous edema at the visualized lower back and pelvis. A | | | preliminary report was given by Dr. Leena Espino on 07/06/2012, time | | | 11:08 p.m. Electronically signed by Sami Heath MD on Jul 07 2012 | | | 4:14PM | | + + + + + | Procedure Note | + + | Néstor, Rad Conversion - 02/13/2019 4:30 PM PDT MRI OF THE LEFT AND RIGHT HIP HISTORY: | | Bilateral hip pain. Sepsis. Renal failure. TECHNIQUE: Multiplanar multisequence MR | | images of the hips and pelvis were obtained without contrast. FINDINGS: Some of the | | images are limited due to motion artifact. No acute fracture, bone contusion, or | | osteonecrosis. Left Hip: Small physiologic amount of fluid at the joint capsule. | | Increased T2 signal within the left obturator internus and externus muscles and left | | pectineus muscle. No trochanteric or iliopsoas bursal fluid collection. Left acetabular | | labrum is unremarkable on this nonarthrogram exam. Articular cartilage is within normal | | limits. There is increased T2 signal within the left gluteus kristyn muscle. Slight | | increased T2 signal at the distal left gluteus medius muscle. Right Hip: Small | | physiologic amount of fluid at the joint capsule. No iliopsoas or trochanteric bursal | | fluid collection. Slight increased T2 signal within the right gluteus minimus muscle and | | right obturator externus and pectineus muscles. There is an approximately 3.6 x 1.4 x | | 1.7 cm lymph node at the right inguinal region. The right acetabular labrum is grossly | | unremarkable on this nonarthrogram exam. Articular cartilage at the right hip joint is | | within normal limits. No pelvic free fluid or lymphadenopathy. There is diffuse | | subcutaneous edema at the visualized lower back and pelvis. IMPRESSION:1. No MR evidence | | of osteomyelitis at the pelvis or hips.2. No abnormal hip joint effusions.3. Increased | | T2 signal within the left obturator internus and externus muscles, left pectineus | | muscle, left gluteus kristyn and medius muscles, right gluteus minimus muscle, right | | obturator externus and pectineus muscles. This is nonspecific. It may be inflammatory in | | etiology.4. There is an enlarged right inguinal lymph node which may be inflammatory or | | neoplastic in etiology. Clinical correlation is requested.5. Diffuse subcutaneous edema | | at the visualized lower back and pelvis. A preliminary report was given by Dr. Stern | | Srinivas on 07/06/2012, time 11:08 p.m. Electronically signed by Sami Heath MD on Jul 072012 4:14PM | |muscles. This is nonspecific. It may be | |inflammatory in etiology. | |4. There is an enlarged right inguinal lymph node which may be inflammatory or neoplastic i n etiology. Clinical correlation is requested. | |5. Diffuse subcutaneous edema at the visualized lower back and pelvis. | | | |A preliminary report was given by Dr. Leena Espino on 07/06/2012, time 11:08 p.m. | | | | Electronically signed by Sami Heath MD on Jul 07 2012 4:14PM | + + XR Ankle Left 3 + Vw (07/06/2012 9:22 PM PST) + + | Specimen | + + | | + + + + + | Narrative | Performed At | + + + | HISTORY: Left ankle pain. COMPARISON: None. TECHNIQUE: | | | AP, oblique, lateral films left ankle. FINDINGS: There is | | | moderate diffuse soft tissue swelling about the ankle. Ankle mortise | | | appears intact. No ankle fracture is seen. Arterial calcification | | | extends into the distal foot. IMPRESSION: 1. Moderate soft | | | tissue swelling about the ankle, without fracture. Electronically | | | signed by Wilton Lentz MD on 07/07/2012 8:45 AM | | + + + + + | Procedure Note | + + | Khalif Palm Conversion - 02/13/2019 4:30 PM PDT HISTORY:Left ankle pain. | | COMPARISON:None. TECHNIQUE:AP, oblique, lateral films left ankle. FINDINGS:There is | | moderate diffuse soft tissue swelling about the ankle. Ankle mortise appears intact. | | No ankle fracture is seen. Arterial calcification extends into the distal foot. | | IMPRESSION:1. Moderate soft tissue swelling about the ankle, without fracture. | | | |TECHNIQUE: | |AP, oblique, lateral films left ankle. | | | |FINDINGS: | |There is moderate diffuse soft tissue swelling about the ankle. Ankle mortise appears inta ct. No ankle fracture is seen. Arterial calcification extends into the distal foot. | | | |IMPRESSION: | |1. Moderate soft tissue swelling about the ankle, without fracture. | | | | | + + XR Knee Right 1 - 2 Vw (07/06/2012 9:22 PM PST) + + | Specimen | + + | | + + + + + | Narrative | Performed At | + + + | HISTORY: Right knee pain. COMPARISON: None. TECHNIQUE: | | | AP, crosstable lateral films right knee. FINDINGS: Prominent | | | joint effusion. Subtle infiltration of the subcutaneous fat | | | throughout the knee, probably due to edema. Mild atrophy of the | | | musculature. Arterial calcification diffusely throughout the distal | | | by, knee, and upper calf. Subtle chondrocalcinosis. Smooth oval | | | calcification measuring 1.0 by 0.3 cm medial to the medial femoral | | | condyle, perhaps related to old soft tissue injury. IMPRESSION: | | | 1. Large joint effusion. 2. Infiltration of the subcutaneous fat | | | throughout the knee, probably due to edema. Cellulitis not excluded. | | | 3. Chondrocalcinosis. 4. Probable old soft tissue injury | | | bordering the medial femoral condyle. | | + + + + + | Procedure Note | + + | Khalif Palm Conversion - 02/13/2019 4:30 PM PDT HISTORY:Right knee pain. | | COMPARISON:None. TECHNIQUE:AP, crosstable lateral films right knee. FINDINGS:Prominent | | joint effusion. Subtle infiltration of the subcutaneous fat throughout the knee, | | probably due to edema. Mild atrophy of the musculature. Arterial calcification | | diffusely throughout the distal by, knee, and upper calf. Subtle chondrocalcinosis. | | Smooth oval calcification measuring 1.0 by 0.3 cm medial to the medial femoral condyle, | | perhaps related to old soft tissue injury. IMPRESSION:1. Large joint effusion.2. | | Infiltration of the subcutaneous fat throughout the knee, probably due to edema. | | Cellulitis not excluded.3. Chondrocalcinosis.4. Probable old soft tissue injury | | bordering the medial femoral condyle. Electronically signed by Wilton Lentz MD on | | 07/07/2012 8:47 AM | |chondrocalcinosis. Smooth oval calcification measuring 1.0 by 0.3 cm medial to the medial femoral condyle, perhaps related to old soft tissue injury. | | | |IMPRESSION: | |1. Large joint effusion. | |2. Infiltration of the subcutaneous fat throughout the knee, probably due to edema. Cellu litis not excluded. | |3. Chondrocalcinosis. | |4. Probable old soft tissue injury bordering the medial femoral condyle. | | | | | + + XR Chest 2 Vws (07/06/2012 6:15 PM PST) + + | Specimen | + + | | + + + + + | Narrative | Performed At | + + + | CAROL POTTER XR CHEST 2 VIEW FRONTAL AND LATERAL 07/06/2012 6:10 PM | | | HISTORY: Fever. Dialysis patient. TECHNIQUE: Two views of | | | the chest. FINDINGS: Compared with May 14, 2012. The heart | | | is normal in size. No acute lung infiltrates or evidence of edema. | | | There is mild vascular congestion noted. The right IJ central | | | venous catheter tip is in the lower SVC. No evidence of pneumothorax | | | or pleural effusion. IMPRESSION: 1. Mild vascular | | | congestion. Central line in place. No acute airspace infiltrates | | | identified. Electronically signed by Kev Acevedo MD on | | | 07/07/2012 8:31 AM | | + + + + + | Procedure Note | + + | Néstor, Rad Conversion - 02/13/2019 4:30 PM PDT [facility] GAR[facility] CHEST 2 VIEW FRONTAL AND | | LATERAL07/06/2012 6:10 PM HISTORY:Fever. Dialysis patient. TECHNIQUE:Two views of the | | chest. FINDINGS:Compared with May 14, 2012. The heart is normal in size. No acute | | lung infiltrates or evidence of edema. There is mild vascular congestion noted. The | | right IJ central venous catheter tip is in the lower SVC. No evidence of pneumothorax | | or pleural effusion. IMPRESSION:1. Mild vascular congestion. Central line in place. | | No acute airspace infiltrates identified. | |Two views of the chest. | | | |FINDINGS: | |Compared with May 14, 2012. The heart is normal in size. No acute lung infiltrates o r evidence of edema. There is mild vascular congestion noted. The right IJ central venous catheter tip is in the lower SVC. No evidence of pneumothorax or | |pleural effusion. | | | |IMPRESSION: | |1. Mild vascular congestion. Central line in place. No acute airspace infiltrates identi fied. | | | | | + + Culture, Blood, 2nd Specimen (07/06/2012 6:04 PM PST) + + | Specimen | + + | Blood specimen | | (specimen) | + + + + + | Narrative | Performed At | + + + | Specimen Description BLOOD GRAM STAIN | EXTERNAL LAB | | GRAM POSITIVE COCCI SEEN ON SMEAR | | | OF AEROBIC BOTTLE | | | CALLED TO BALJIT Mccullough ON 07/08/12 AT 1016 BY READBACK | | | GRAM POSITIVE COCCI SEEN IN | | | ANAEROBIC BOTTLE | | | SMEAR RESULTS CALLED TO AND READ BACK BY: LANE/WESLEY Warren AT 2143 ON | | | 2012 BY NHAN | | | Testing performed at [facility] [place] [address];[place] [address] CULTURE | | | STAPHYLOCOCCUS AUREUS FOR | | | SUSCEPTIBILITIES SEE CULTURE [id number] COLLECTED ON THE SAME | | | DATEAbnormal | | | GROWTH IN TWO OF TWO BOTTLESAbnormal | | | TIME TO DETECTION: 1.65 DAYS | | | Testing performed at [facility], [address] | | | [place] [address] REPORT STATUS | | | 07/09/2012 FINAL | | + + + + +---------+ + + | Performing | Address | City/State/Zipcode | Phone Number | | Organization | | | | + +---------+ + + | EXTERNAL LAB | | | | + +---------+ + + Culture, Blood (07/06/2012 6:00 PM PST) + + | Specimen | + + | Blood specimen | | (specimen) | + + + + + | Narrative | Performed At | + + + | Specimen Description BLOOD SPECIAL | EXTERNAL LAB | | REQUESTS R HAND | | | Testing performed at [facility];[address];[place] [address] GRAM STAIN | | | GRAM POSITIVE COCCI SEEN ON SMEAR OF ANAEROBIC BOTTLE | | | CALLED TO LANE/EZEKIEL Villegas ON 07/07/12 | | | AT 1337 BY READBACK | | | GRAM POSITIVE COCCI SEEN ON SMEAR OF AEROBIC BOTTLE | | | SMEAR RESULTS CALLED TO AND | | | READ BACK BY: SHELL Romo IN 6RP @ 2155 BY LGS | | | Testing performed at [facility];[address] | | | [facility];[place] [address] CULTURE | | | STAPHYLOCOCCUS AUREUS SUSCEPTIBILITY TO FOLLOWAbnormal | | | GROWTH IN TWO OF TWO | | | BOTTLESAbnormal | | | TIME TO DETECTION: 0.78 DAYS | | | Testing performed at [facility], [address] [facility], | | | [place] [address] REPORT STATUS | | | 07/09/2012 FINAL Organism | | | STAPHYLOCOCCUS AUREUS Suscepibility for - STAPHYLOCOCCUS AUREUS | | | Gentamicin SUSCEPTIBLESensitive | | | Oxacillin SUSCEPTIBLESensitive | | | Penicillin G RESISTANT Resistant | | | Tetracycline SUSCEPTIBLESensitive | | | Trimethoprim + SulfamethoxazoleSUSCEPTIBLESensitive Vancomycin | | | SUSCEPTIBLESensitive Moxifloxacin [...] + | Diagnosis | + + | Sepsis(995.91) Sepsis | + + | Bilateral ankle pain Pain in joint, ankle and foot | + + | Blind left eye Profound impairment, one eye, Impairment level not further specified | + + | Chest pain Chest pain, unspecified | + + | 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) Type II or unspecified | | type diabetes mellitus with renal manifestations, not stated as uncontrolled | + + | ESRD (end stage renal disease) on dialysis (HCC) End stage renal disease | + + | Febrile illness, acute Fever, unspecified | + + | Hip pain, bilateral Pain in joint, pelvic region and thigh | + + | Hypoalbuminemia Other disorders of plasma protein metabolism | + + | Hyponatremia Hyposmolality and/or hyponatremia | + + | Hypothyroidism Unspecified hypothyroidism | + + | Chronic renal failure Chronic kidney disease, unspecified | + + | Knee pain, right Pain in joint, lower leg | + + | Polyarthritis Unspecified polyarthropathy or polyarthritis, site unspecified | + + | SIRS due to infectious process with acute organ dysfunction (HCC) Unspecified | | septicemia | + + | ESRD (end stage renal disease) (HCC) End stage renal disease | + + | MSSA (methicillin susceptible Staphylococcus aureus) infection Methicillin | | susceptible Staphylococcus aureus in conditions classified elsewhere and of unspecified | | site | + + | Acute posthemorrhagic anemia | + + | Amphetamine and other psychostimulant dependence, continuous | + + | 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) | + + | Asthma Unspecified asthma | + + | Bacteremia due to Gram-positive bacteria Bacteremia | + + | DVT (deep venous thrombosis) (HCC) Acute venous embolism and thrombosis of | | unspecified deep vessels of lower extremity | + + | GI bleed Hemorrhage of gastrointestinal tract, unspecified | + + | Gout Gout, unspecified | + + | HTN (hypertension) Unspecified essential hypertension | + + | Hyperphosphatemia Disorders of phosphorus metabolism | + + | 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HCC) Type II or unspecified type diabetes | | mellitus with renal manifestations, not stated as uncontrolled | + + | Obesity (BMI 30-39.9) Obesity, unspecified | + + | Rash and nonspecific skin eruption Rash and other nonspecific skin eruption | + + | Secondary hyperparathyroidism (of renal origin) | + + | Severe protein-calorie malnutrition (HCC) Other severe protein-calorie malnutrition | + + | Septic arthritis of knee, right (HCC) Pyogenic arthritis, lower leg | + + | Type II or unspecified type diabetes mellitus without mention of complication, not | | stated as uncontrolled | + + | Unspecified asthma(493.90) Unspecified asthma | + + | Unspecified essential hypertension | + + | Vitamin D deficiency Unspecified vitamin D deficiency | + + | Hypokalemia Hypopotassemia | + + | Hypertension Unspecified essential hypertension | + + | Anemia Anemia, unspecified | + + | Anemia of chronic kidney failure Anemia in chronic kidney disease | + + | Bacteremia due to Staphylococcus Bacteremia | + + documented in this encounter
--- OUTSIDE RECORDS SUMMARY | ~2019-05-20 | XMS | Encounter Summary ---
Demographics + + + | Address | [address] | | | [place] [address] | + + + | Home Phone [...] Providers + +------+ + | Care Lead Person Name | Role | Phone | + +------+ + PCP | Unavailable | + +------+ + Encounter Details +--------+ + + + + | Date | Type | Department | Care Team | Description | +--------+ + + + + | 02/03/ | Hospital | [facility] | Conversion | ESRD (end stage | | 2014 | Encounter | CENTER [facility] | Transaction, | renal disease) ([facility]) | | | | [address] | Provider Unknown | | | | | [place], [place] | [phone] | | | | | [address] | | | | | | [phone] | Oskar Meyer, [address] | | | | | [address] | | | | | | [place], [place] | | | | | | [address] | | | | | | [phone] | | | | | | | [...] | 0 | 09/14/20 | | | (ZYLOPRIM) 100 mg | [...] | | | SURGEON Oskar Meyer MD [employer]NC[employer]ER None ANESTHESIA Moderate | | | sedation, [...] Palm Conversion - 02/06/2019 10:59 AM PDT PREOPERATIVE DIAGNOSISEnd-stage renal | | disease, need for right arm fistula creation POSTOPERATIVE DIAGNOSISEnd-stage renal | | disease, need for right arm fistula creation PROCEDURERight arm venogram SURGEONOskar Meyer | | ASSISTANTNonmariela ANESTHESIAModerate sedation, local anesthesia. ESTIMATED BLOOD | | LOSSMinimal. CONTRAST USED40 mL of Isovue-250 INDICATIONSMr. Potter is a pleasant | | 48-year-old [...]
--- OUTSIDE RECORDS SUMMARY | ~2019-05-20 | XMS | Encounter Summary ---
Demographics + + + | Address | [address] | | | [place] [address] | + + + | Home Phone | | + + + | Preferred Language | Unknown | + + + | Marital Status | Unknown | + + + | Pentecostalism Affiliation | [id number] | + + + | Race | Unknown | + + + | Ethnic Group | Unknown | + + + Author + + + | Author | [facility] | | | and [place] | + + + | Organization | [facility] | | [...] Team Providers + +------+ + | Care Automatic Pilot Mechanic Name | Role | Phone | + +------+ + PCP | Unavailable | + +------+ + Encounter Details +--------+ + + + + | Date | Type | Department | Care Team | Description | +--------+ + + + + | 07/08/ | Hospital | [facility] | Conversion | Pain | | 2013 | Encounter | CONVERSION [address] | Transaction, | | | | | [address] | Provider Unknown | | | | | [place], [place] | | | | | | [address] | (Fax) | | | | | [phone] | | | +--------+ + + + [...]
--- OUTSIDE RECORDS SUMMARY | ~2019-05-20 | XMS | Encounter Summary ---
Demographics + + + | Address | [address] | | | [place] [address] | + + + | Home Phone [...] Team Providers + +------+ + | Care Unemployment Benefits Claims Taker Name | Role | Phone | + +------+ + PCP | Unavailable | + +------+ + Encounter Details +--------+ + + + + | Date | Type | Department | Care Team | Description | +--------+ + + + + | 08/08/ | Hospital | [facility] | Vikram Colbert MD | Hyperkalemia; | | 2012 - | Encounter | [facility] | [address] | Hypothyroidism; | | | | CARE [address]LO[address] | [place] [address] | Vitamin d | | 08/09/ | [address] | [phone] | deficiency; Gout; | | 2012 | | [place], [place] | | Amphetamine and | | | | [address] | | other | | | | [phone] | | psychostimulant | | | | [...] | | | | | | uncontrolled ([facility]); | | | | | | ESRD (end stage | | | | | | renal disease) on | | | | | | dialysis ([facility]); [...] 1450 Date of Service: 08/19/121438 Status: Signed Renal Nurse: Neli Trujillo MD (Physician) [facility] Service: Hospitalist Discharge Summary Date of Admission: 08/08/2012 Date of Discharge: 08/09/12 Discharge Provider: NELI TRUJILLO MD Treatment Team: Consulting Physician: Vikram Colbert MD Consulting Physician: Sean Reid MD Admitting Provider: Vikram Colbert MD [...] he went to the emergency room at [facility], where he had a neck pain and wa s found to be anemic and transferred to [facility]. At [facility] his hemoglobin was 5.7 and hematocrit 17.9. [...] W/ EGD; Surgeon: John Singleton MD; Location: [facility] ENDOSCOPY; Se rvice: Gastroenterology; Laterality: N/A; Av fistula placement 05/06/2012 Procedure: AV FISTULA; Surgeon: Oskar Meyer MD; Location: [facility] MAIN OR; Service: Vascul ar; Laterality: Left; Left arm possible right Unlisted procedure arthroscopy shoulder rt , ligaments Knee arthroscopy 07/07/2012 Procedure: KNEE - ARTHROSCOPY; Surgeon: Favio Raza MD; Location: [facility] MAIN OR; [facility]: Orthopedics; Laterality: Right; After 1530 Catheter removal 07/07/2012 Procedure: DIALYSIS CATHETER REMOVAL; Surgeon: Oskar Meyer MD; Location: [facility] BEDSIDE [place] OCEDURE; Service: General; Laterality: Right; perm cath Dialysis fistula creation 07/07/2012 Procedure: DIALYSIS CATHETER INSERTION; Surgeon: Oskar Meyer MD; Location: [facility] BEDSIDE PROCEDURE; Service: General; Laterality: Left; temporary dialysis catheter Av fistula repair 07/11/2012 Procedure: AV FISTULA GRAFT REPAIR/REVISION; Surgeon: Oskar Meyer MD; Location: [facility] OR; Service: Vascular; Laterality: Left; Superficialization of brachiobasilic fistula and right IJ perm cath insertion Dialysis fistula creation 07/11/2012 Procedure: DIALYSIS CATHETER INSERTION; Surgeon: Oskar Meyer MD; Location: [facility] MAIN OR; Service: Vascular; Laterality: Left; [...] No discharge procedures on file. Follow up: [facility] [address] [facility] [address] in 2 days Sean Reid MD [address] [facility] [address] in 2 days Discharge Medication List as [...] Until Discontinued, Histori herminia Med ergocalciferol (DRISDOL) 35343 UNITS capsule Take 1 capsule by mouth [...] 08/09/121911 Date of Service: 08/09/121910 Status: Signed Renal Nurse: Maddy Maciel, RN (Registered Nurse) Patient given [...] 1252 Date of Service: 08/09/121238 Status: Signed Renal Nurse: Sean Reid MD (Physician) [facility]: NEPHROLOGY Progress Note Enrique Potter 47 y.o. [id number] male [facility] Hospital Day: LOS: 1 day SUBJECTIVE Patient seen and examined. severe anemia History Obtained From:Pt Stated Pt states he was feeling dizzy and lightheaded "like I was going to pass out, I knew something was wrong this morning". Went to [facility] ER THEN TR TO [facility], he was found to have severe anemia of 5.7 hemoglobin Patient had missed dialysis because of left upper arm AV fistula infiltration. On August 06, 2012 and was due for hemodialysis even today and missed the hemodialysis and chronic hem odialysis unit at [place] under Dr. Cook. Patient was recently admitted with MSSA bacteremia which is already resolved HISTORY OF PRESENT ILLNESS Nephrology consulted for evaluation and management of END-stage renal disease and [facility] hemod[facility] ONSET ACUTE, Severe Associated with fluid [...] W/ EGD; Surgeon: John Singleton MD; Location: [facility] ENDOSCOPY; Se rvice: Gastroenterology; Laterality: N/A; Av fistula placement 05/06/2012 Procedure: AV FISTULA; Surgeon: Oskar Meyer MD; Location: [facility] MAIN OR; Service: Vascul ar; Laterality: Left; Left arm possible right Unlisted procedure arthroscopy shoulder rt , ligaments Knee arthroscopy 07/07/2012 Procedure: KNEE - ARTHROSCOPY; Surgeon: Favio Raza MD; Location: [facility] MAIN OR; S ervice: Orthopedics; Laterality: Right; After 1530 Catheter removal 07/07/2012 Procedure: DIALYSIS CATHETER REMOVAL; Surgeon: Oskar Meyer MD; Location: [facility] BEDSIDE [place] OCEDURE; Service: General; Laterality: Right; perm cath Dialysis fistula creation 07/07/2012 Procedure: DIALYSIS CATHETER INSERTION; Surgeon: Oskar Meyer MD; Location: [facility] BEDSIDE PROCEDURE; Service: General; Laterality: Left; temporary dialysis catheter Av fistula repair 07/11/2012 Procedure: AV FISTULA GRAFT REPAIR/REVISION; Surgeon: Oskar Meyer MD; Location: [facility] OR; Service: Vascular; Laterality: Left; Superficialization of brachiobasilic fistula and right IJ perm cath insertion Dialysis fistula creation 07/11/2012 Procedure: DIALYSIS CATHETER INSERTION; Surgeon: Oskar Meyer MD; Location: [facility] MAIN OR; Service: Vascular; Laterality: Left; [...] BIOLOGICAL; 2 STEP KIDSUNEMPLOYED BEFORE WORKED AT [employer] IN [place] NONE ETOH QUIT 15 YEARS AGODRUGS: quit [...] bicarbonate 50 mEq Intravenous Once vitamin B [id number] acid 1 tablet Oral Daily DISCONTD: epoetin [...] PROCEDURE I met this patient in the Compressor Station Engineer Chief holding room. I had a discussion with [...] continue maintenance hemodialysis Saturday and Saturday. At [facility] HD UNIT UNDER DR COOK BP: Better [...] 08/08/121844 Date of Service: 08/08/121844 Status: Signed Renal Nurse: Chela Varela [facility] (Pharmacist) Clinical Pharmacy Note - Renal Dose Adjustment Enrique Potter 47 y.o. male Ht Readings from Last 1 Encounters: 08/08/12 1.702 m (5' 7") Wt Readings from Last 1 Encounters: 08/08/12 79.833 kg (176 lb) CREATININE Date Value Range Status 08/08/2012 6.51* 0.70 - 1.30 mg/dL Final Testing performed at [facility];[address] [place] [address];[place] [address] ESRD on HD Pharmacy to renally adjust [...]
--- OUTSIDE RECORDS SUMMARY | ~2019-05-20 | XMS | Encounter Summary ---
Demographics + + + | Address | [address] | | | [place] [address] | + + + | Home Phone [...] Providers + +------+ + | Care Medical Services Assistant Name | Role | Phone | [...] | | | | CENTER [address] | | Dx) | | | | [place], [place] | | | | | | [address] | | | | | | [phone] | | | +--------+ + + + [...]
--- OUTSIDE RECORDS SUMMARY | ~2019-05-20 | XMS | Encounter Summary ---
Demographics + + + | Address | [address] | | | [place] [address] | + + + | Home Phone | | + + + | Preferred Language | Unknown | + + + | Marital Status | Unknown | + + + | Spiritism Affiliation | [id number] | + + + [...] Team Providers + +------+ + | Care Enamel Cracker Name | Role | Phone | + +------+ + | Andry Deng DO | PCP | | + +------+ + Encounter Details +--------+ + + + + | Date | Type | Department | Care Team | Description | +--------+ + + + + | 05/31/ | Orders Only | [facility] | Conversion | | | 2013 | | INFECTIOUS DISEASE | Transaction, | | | | | [address] | Provider Unknown | | | | | [place], [place] | [phone] | | | | | [address] | | | | | | [phone] | | | +--------+ + + + [...] + + + | RED CELL | 4.01 (A) | 4.3 - 5.7 10 | EXTERNAL | | | COUNT | | | LAB | | + + + + + + | Hgb | 12.1 (A) | 13.5 - 18.0 [...]
--- OUTSIDE RECORDS SUMMARY | ~2019-05-20 | XMS | Encounter Summary ---
Demographics + + + | Address | [address] | | | [place] [address] | + + + | Home Phone [...] + + + | Author | [facility] | | | and [place] | + + + | Organization | [facility] | | [...] Team Providers + +------+ + | Care Retail Coverage Merchandiser Lead Name | Role | Phone | + +------+ + PCP | Unavailable | + +------+ + Encounter Details +--------+ + + + + | Date | Type | Department | Care Team | Description | +--------+ + + + + | 04/28/ | Hospital | [facility] | [place], | Acute respiratory | | 2016 - | Encounter | [place] | [place]hal [place], | failure with hypoxia | | | | CLINICAL DECISION | MD Jeannie [address] | ([facility]); Acute | | 04/30/ | | [address] | [place], | respiratory failure | | 2016 | | [place], [place] | [place] [address] | with hypoxia and | | | | [address] | [phone] | hypercapnia ([facility]) | | | | [phone] | | | +--------+ + + + [...] Date of Service: 04/30/16 1029 Status: Addendum Attorney Recruiter: Khanh Rangel MD (Physician) Related Notes: Original Note by Khanh Rangel MD (Physician) filed at 04/30/16 1041 [facility] Service: Hospitalist Discharge Summary Date [...] HISTORY OF PRESENTATION: Enrique Potter is a 51 y.o. male who [...] abuse, who was brought t o the [facility] due to shortness of breath. Per report, [...] thrombosis, polysubstance abuse, who was brought to [facility], due to sh ortness of breath. Per [...] pain, right upper quadrant 04/13/2012 Dialysis patient ([facility]) GI bleed 04/30/2012 from coumadin Walker as ambulation aid Gout Asthma pt not using inhaler any more, no symptoms DVT (deep venous thrombosis) ([facility]) x3 AV fistula ([facility]) lt arm Knee pain, right 07/06/2012 MSSA (methicillin susceptible Staphylococcus aureus) infection 04/11/2012 Anemia due to blood loss 04/30/2012 Amphetamine and other psychostimulant dependence, continuous 04/02/2012 Hyperphosphatemia 05/24/2012 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 Rash and nonspecific skin eruption 04/03/2012 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 MAIN OR; Service: Vascular; Laterality: Right; Av fistula placement Right 02/09/2014 Procedure: AV FISTULA; Surgeon: Oskar Meyer MD; Location: [facility] MAIN OR; Service: Vascul ar; Laterality: Right; Av fistula repair Left 07/11/2012 Procedure: AV FISTULA - GRAFT REPAIR/REVISION; Surgeon: Oskar Meyer MD; Location: [facility] OR; Service: Vascular; Laterality: Left; Superficialization of brachiobasilic fistula and right IJ perm cath insertion Dialysis fistula creation Left 07/11/2012 Procedure: DIALYSIS CATHETER - INSERTION; Surgeon: Oskar Meyer MD; Location: [facility] MAIN O R; Service: Vascular; Laterality: Left; removed dialysis catheter from left neck and plac ed new on in left chest, attempted in right neck but unable to place Catheter removal Right 07/07/2012 Procedure: DIALYSIS CATHETER - REMOVAL; Surgeon: Oskar Meyer MD; Location: [facility] BEDSIDE PROCEDURE; Service: General; Laterality: Right; perm cath Dialysis fistula creation Left 07/07/2012 Procedure: DIALYSIS CATHETER - INSERTION; Surgeon: Oskar Meyer MD; Location: [facility] BEDSID E PROCEDURE; Service: General; Laterality: Left; temporary dialysis catheter Knee arthroscopy Right 07/07/2012 Procedure: KNEE - ARTHROSCOPY; Surgeon: Favio Raaz MD; Location: [facility] MAIN OR; S ervice: Orthopedics; Laterality: Right; After 1530 Av fistula placement Left 05/06/2012 Procedure: AV FISTULA; Surgeon: Oskar Meyer MD; Location: [facility] MAIN OR; Service: Vascul ar; Laterality: Left; Left arm possible right Colonoscopy with egd N/A 05/01/2012 Procedure: COLONOSCOPY W/ EGD; Surgeon: John Singleton MD; Location: [facility] ENDOSCOPY; Se rvice: Gastroenterology; Laterality: N/A; Allergies [...] last 168 hours. Recent Labs Lab 04/29/16 031 TSH 9.96* FREET4 0.7 No results for input(s): CKTOTAL, TROPONINI, TROPONINT, CKMBINDEX in the last 168 hours. No results found for: HDL, CHOL, CHOLHDL, VLDL, NONHDLCHOLVL Xr Chest 1 View 04/28/2016 ENRIQUE POTTER XR CHEST 1 VIEW 04/28/2016 11:53 [...] on file. [place]: [place] [address] [place] [address] In 1 week Medication List START taking [...] disc harge summary. Khanh Rangel MD 04/30/2016 Reji stratton in this encounter Medications at [...] | | 14 | | | ol (ADV, COOPERELA | times daily. | | | [...] Note by Ema Rodriguez PT at 04/30/16 4697 Author: Ema Rodriguez PT Service: (none) Author Type: Physical Therapist Filed: 04/30/16 0804 Date of Service: 04/30/161404 Status: Signed Attorney Recruiter: Ema Rodriguez PT (Physical Therapist) 04/30/16 9738 PT Last Visit PT Received On 04/30/16 Reason for Treatment Deconditioning Requires PT Follow Up Yes Assistance Required 1 person Top Knitter Needed No Precautions Other Precautions falls Other [...] Progress Note by Alexis Banegas RN at 04/30/16 5489 Author: Alexis Banegas RN Service: (none) Author Type: Registered Nurse Filed: 04/30/16 1745 Date of Service: 04/30/16 6184 Status: Signed Attorney Recruiter: Alexis Banegas RN (Registered Nurse) Pt discharged [...] 04/30/16811 Date of Service: 04/30/16811 Status: Signed Attorney Recruiter: Elana Bhatt RPH (Pharmacist) Per nurse note, Patient to have hemodialysis at 0830 today. RN please message pharmacy when dose of Vancomycin is needed. Should be given after each HD session. onver quique Transaction, Provider Unknown - 04/30/2016 4:05 AM PST Nurse Progress Note by Madelyn Dimas RN at 04/30/16404 Author: Madelyn Dimas RN Service: (none) Author Type: Registered Nurse Filed: 04/30/16407 Date of Service: 04/30/16404 Status: Signed Attorney Recruiter: Madelyn Dimas RN (Registered Nurse) Patient to have hemodialysis at 0830 today. Continues to be hypertensive with SBP 140-160s. Blood glucose has been elevated at 300- . Madelyn Dimas RN onver quique Transaction, Provider Unknown - 04/29/2016 3:59 PM PST Progress Notes by Ambika Hanson RPH at 04/29/16 7133 Author: Ambika Hanson RPH Service: (none) Author Type: Pharmacist Filed: 04/29/161558 Date of Service: 04/29/161558 Status: Signed Attorney Recruiter: Ambika Hanson RPH (Pharmacist) Drug-Drug Interaction Report Ondansetron / QT Prolonging Agents 2 Significance: Major Warning: Additive QT interval prolongation may occur during coadministration of ondansetron and levofloxacin. Onset: Rapid Document Level: Possible Interacting Medications/Orders: Ondansetron Non-oral, Systemic QT Prolonging Agents 2 Oral or Non-Oral, Systemic 1. ondansetron Order ([id number]): ondansetron (ZOFRAN) injection 4 mg Route: Intravenous Start: 04/29/2016 1543 End: none Frequency: Every 6 Hours PRN 1. levofloxacin Order ([id number]): levofloxacin (LEVAQUIN) IVPB 250 mg Route: Intravenous [...] Notes by Fela Mayberry MD at 04/29/16 1204 Author: Fela Mayberry MD Service: (none) Author Type: Physician Filed: 04/29/161205 Date of Service: 04/29/161203 Status: Signed Attorney Recruiter: Fela Mayberry MD (Physician) Hospital Problem List: Principal Problem: Acute respiratory failure with hypoxia and hypercapnia ([facility]) Active Problems: Hypothyroidism 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) HTN (hypertension) ESRD (end stage renal disease) on dialysis ([facility]) Polysubstance abuse Hyponatremia Anemia of chronic disease [...] last 3 completed shifts: In: 2658.7 [I.V.:658.7; Other:1999] Out: 4300 [Emesis/NG output:300; Other:4000] Assessment and recommendations Mr. Potter is a 51 y.o. male patient with respiratory failure sec to volume overload Respiratory failure. extubated This is secondary to volume overload HD done emergently 04/28 No indication for TENTER FEEDER today ESRD As above Hyponatremia. Sec to [...] Note by Venita Mendes PT at 04/29/16 1142 Author: Venita Mendes PT Service: (none) Author Type: Physical Therapist Filed: 04/29/16 1400 Date of Service: 04/29/16 1142 Status: Signed Attorney Recruiter: Venita Mendes PT (Physical Therapist) 04/29/16 1142 PT Last Visit PT Received On 04/29/16 Reason for Treatment Deconditioning Requires PT Follow Up Awaiting tx order Follow up PT Only? Yes (Ongoing amb and OOB assessment) Focus for Next Treatment Equipment Trial (FWW) PT Eval/Reassessment Date 04/29/16 Assistance Required 1 person;2 person (2nd person lines) Top Knitter Needed No Home Environment Type of Home Home one story Home Exterior Layout 1-3 steps;Rail bilateral Home Interior Layout Lives on main level with bedroom/bathroom Bathroom Shower/Tub Tub/shower unit Bathroom Toilet Standard Bathroom Equipment Shower chair Bathroom Accessibility Accessible via walker Home Equipment Cane single point Prior Function Level of [place] Independent with functional mobility;Independent with ADLs;Independe nt with IADLs Falls in Past Year No Lives With Spouse;Adult child(gary) (Acts as caregiver for younger son w/ CP, older son helps pt) Employment On disability Leisure (Golf) RUE Assessment RUE Assessment X (Limited d/t [...] Barriers to Discharge Physical Deficits Impacting Functional [place] Recommendation Comments Pt demonstrates good strength and [...] Required 1 person;2 person (2nd person lines) Top Knitter Needed No Precautions Other Precautions Fall risk Other Comments Comments Chart reviewed. Pt is a 51 y.o. w/ significant PMH of T2DM, ESRD, on HD, hypothyr oidism, gout, asthma HTN, HPL, anemia of chronic disease, R IJ thrombosis, polysubstance abu se. Pt has reported URI symptoms in recent weeks. Pt transferred from [facility] d/ hy poxic respiratory failure. Pt supine [...] Barriers to Discharge Physical Deficits Impacting Functional [place] Recommendation Comments Pt demonstrates good strength and [...] Carmina Monge RN at 04/29/16 1029 Author: Carmina Monge RN Service: (none) Author Type: Cardiac Cath Technician Filed: 04/29/16 1032 Date of Service: 04/29/16 1029 Status: Signed Attorney Recruiter: Carmina Monge RN (Cardiac Cath Technician) 04/29/16 1024 Discharge Planning Evaluation Admitting Diagnosis [...] Potter Relationship to Patient spouse Phone number [phone] Mental Status Oriented Prior functional status independent Anticipated Discharge Plan Post Acute Care Needs (Dialysis M-W-) Plan communicated to patient/family Yes Resources Financial concerns No Transportation issues No Patient/Family concerns No Prescription Plan Yes Name of Pharmacy [facility] Previous home health equipment No Vascular access device Yes Anticipated Disposition Facility Type Home Met with patient and his Shyanne and discussed discharge planning, Pt is a 51 y.o., male admitted with respiratory failure. Pt lives in [place] with his and family. Pt states that [...] housing needed: no Anticipated DCP: Home Carmina Fearing RN CM Nehal Pham MD - 04/29/2016 8:30 AM PSTFormatting of this note might be different from t barbie original. Progress Notes by Nehal Simpson MD at 04/29/16829 Author: Nehal Simpson MD Service: Director Oncology Author Type: Physician Filed: 04/29/16853 Date of Service: 04/29/16829 Status: Signed Attorney Recruiter: Nehal Simpson MD (Physician) [facility] Service: Director Oncology Progress Note Enrique Potter 51 y.o. Hospital Day: LOS: 1 [...] thrombosis, polysubstance abuse, who was brought to [facility] due to shortness of breath. [...] norepinephrine in D5W 64 mcg/mL Stopped (04/28/16 1734) propofol 10 mcg/kg/min (04/29/16 0122) OBJECTIVE VITAL [...] (04/28), PIV (04/28) DATA Recent Labs Lab 04/29/167 04/29/16316 WBC 37.63* 40.72* RBC 4.18* 4.32 HGB 12.3* 12.9* HCT 37.9* 40.3 MCV 90.8 93.2 MCH 29.5 29.8 MCHC 32.4 32.0 RDW 53.8* 55.6* PLT 188 182 MPV 7.7 8.0 BANDSABS 3.76* 2.44* MORPH NORMAL PLT MORPH 1+ Recent Labs Lab 04/29/1631604/28/168 04/28/16 1349 NA 139 136 136 K [...] chronic disease Chronic obstructive asthma with exacerbation ([facility]) Chronic steroid use Resolved Problems: * No [...] Progress Notes by Curtis Victoria RPH at 04/29/16809 Author: Curtis Victoria RPH Service: (none) Author Type: Pharmacist Filed: 04/29/16809 Date of Service: 04/29/16809 Status: Signed Attorney Recruiter: Curtis Victoria RPH (Pharmacist) Initiation of Vancomycin Pharmacy Dosing Enrique Potter 51 y.o. male 1.702 m (5' 7") 85.4 kg (188 lb 4.4 oz) Body mass index is 29.48 kg/(m^2). [place] Body Weight: Adjusted Body Weight: CREATININE Date Value Ref Range Status 04/29/2016 7.5* 0.70 - 1.30 mg/dL Final Comment: Testing performed at [facility], [address] [place] [address] Estimated CrCl : CREATININE: 7.5 mg/dL ABNORMAL [...] Progress Note by Marivel Sapp RN at 04/29/16 034 Author: Marivel Sapp RN Service: (none) Author Type: Registered Nurse Filed: 04/29/16 0409 Date of Service: 04/29/16339 Status: Signed Attorney Recruiter: Marivel Sapp RN (Registered Nurse) Pt extubated and tolerated well. He was cleaned up and provided oral care, fresh linens. Wi ll continue monitor. onver quique Transaction, Provider Unknown - 04/28/2016 4:18 PM PDT Therapy Progress Note by Devaughn Ramos PT at 04/28/16 1618 Author: Devaughn Ramos PT Service: (none) Author Type: Physical Therapist Filed: 04/28/161618 Date of Service: 04/28/161617 Status: Signed Attorney Recruiter: Devaughn Ramos PT (Physical Therapist) 04/28/161617 PT Last Visit PT Received On 04/28/16 Requires PT Follow Up On hold Other Comments Comments pt. intubated at this time will continue to f/u as appropriate onzee Carlisleaction, Provider Unknown - 04/28/2016 1:39 PM PDT Progress Notes by Ambika Hanson RPH at 04/28/16 5011 Author: Ambika Hanson RPH Service: (none) Author Type: Pharmacist Filed: 04/28/161338 Date of Service: 04/28/161338 Status: Signed Attorney Recruiter: Ambika Hanson RPH (Pharmacist) Patient is a HD patient. Adjusted Levofloxacin to 250mg IVPB Q48 hours. Next dose on 04/30 . (first dose was given at [facility]). No other changes at this time. onver quique Transaction, Provider Unknown - 04/28/2016 12:14 PM PDT Progress Notes by Franco Cesar RPH at 04/28/161213 Author: Franco Cesar RPH Service: Pharmacy Author Type: Pharmacist Filed: 04/28/161213 Date of Service: 04/28/161213 Status: Signed Attorney Recruiter: Franco Cesar RPH (Pharmacist) >> FRANCO CESAR 04/28/2016 11:59 Renal Dosing Monitoring: Enrique Tariq 51 y.o. male Pharmacy dosing for renal function per Dr. Simpson Awaiting height/weight and labs Pharmacy will continue monitoring patient for appropriate dosing per renal function. 04/28/2016 11:58 AM Pharmacist: FRANCO CESAR docume nted in this encounter Plan of [...] | | | Fingerstick | performed at [facility];[address] | | LAB | | | | [address];[place] | | | | | | [address] | | | | + + + [...] | | | Fingerstick | performed at [facility];[address] | | LAB | | | | [address];[place], [place] | | | | | | [address] | | | | + + + + + + + + | Specimen | + + | | + + + +---------+ + + | Performing | Address | City/State/Zipcode | Phone Number | | Organization | | | | + +---------+ + + | EXTERNAL LAB | | | | + +---------+ + + External Lab: [facility] (04/30/2016 6:01 AM PST) + + + + + + | Component | Value | Ref Range | Performed | Pathologist | | | | | At | Signature | + + + + + + | WBC | 31.72 ()Comment: | 3.80 - 11.00 | EXTERNAL | | | | RESULT READ BACK BY: | K/uL | LAB | | | | CESILIA VERMA AT 0709 | | | | | | ON 04/30/2016 THTesting | | | | | | performed at [facility], [address] | | | | | | [address], | | | | | | [place] [address] | | | | + + + + + + | RED CELL | 4.04 (L)Comment: Testing | 4.20 - 5.70 | EXTERNAL | | | COUNT | performed at [facility], [address] | M/uL | LAB | | | | [address], | | | | | | [place] [address] | | | | + + + + + + | Hgb | 12.3 (L)Comment: Testing | 13.2 - 17.0 | EXTERNAL | | | | performed at [facility], [address] | g/dL | LAB | | | | [address], | | | | | | [place] [address] | | | | + + + + + + | Hematocrit, | 36.6 (L)Comment: Testing | 39.0 - 50.0 % | EXTERNAL | | | POC | performed at [facility], [address] | | LAB | | | | [address], | | | | | | [place] [address] | | | | + + + + + + | MCV | 90.6Comment: Testing | 80.0 - 100.0 fl | EXTERNAL | | | | performed at [facility], [address] | | LAB | | | [address], | | | | | | [place] [address] | | | | + + + + + + | MCH | 30.5Comment: Testing | 27.0 - 34.0 pg | EXTERNAL | | | | performed at [facility], [address] | | LAB | | | | [address], | | | | | | [place] [address] | | | | + + + + + + | MCHC | 33.7Comment: Testing | 32.0 - 35.5 | EXTERNAL | | | | performed at [facility], [address] | g/dL | LAB | | | | [address], | | | | | | [place] [address] | | | | + + + + + + | RDW-CV | 53.8 (H)Comment: Testing | 37 - 53 fl | EXTERNAL | | | | performed at [facility], [address] | | LAB | | | | [address], | | | | | | [place] [address] | | | | + + + + + + | Platelet | 181Comment: Testing | 150 - 400 K/uL | EXTERNAL | | | Count | performed at [facility], [address] | | LAB | | | Plasma | [address], | | | | | | [place] [address] | | | | + + + + + + | MPV | 7.8Comment: Testing | fl | EXTERNAL | | | | performed at [facility], [address] | | LAB | | | | [address], | | | | | | [place] [address] | | | | + + + + + + | Differentia | AUTOMATEDComment: | | EXTERNAL | | | l Type | Testing performed at | | LAB | | | | [facility], [address] | | | | | | [place] | | | | | | [address] | | | | + + + + + + | % Segmented | 97.03Comment: Testing | % | EXTERNAL | | | | performed at [facility], [address] | | LAB | | | Neutrophils | [address], | | | | | | [place] [address] | | | | + + + + + + | % | 1.58Comment: Testing | % | EXTERNAL | | | Lymphocytes | performed at [facility], [address] | | LAB | | | | [address], | | | | | | [place], [place] [address] | | | | + + + + + + | % Monocytes | 1.34Comment: Testing | % | EXTERNAL | | | | performed at [facility], [address] | | LAB | | | | [address], | | | | | | [place], [place] [address] | | | | + + + + + + | % | 0.00Comment: Testing | % | EXTERNAL | | | Eosinophils | performed at [facility], [address] | | LAB | | | | [address], | | | | | | [place], [place] [address] | | | | + + + + + + | % Basophils | 0.05Comment: Testing | % | EXTERNAL | | | | performed at [facility], [address] | | LAB | | | | [address], | | | | | | [place] [address] | | | | + + + + + + | Absolute | 30.78 (H)Comment: | 1.90 - 7.40 | EXTERNAL | | | Segmented | Testing performed at | K/uL | LAB | | | Neutrophils | [facility], [address] | | | | | | [place] | | | | | | [address] | | | | + + + + + + | Absolute | 0.50 (L)Comment: Testing | 1.00 - 3.90 | EXTERNAL | | | Lymphocytes | performed at [facility], [address] | K/uL | LAB | | | | [address], | | | | | | [place] [address] | | | | + + + + + + | Absolute | 0.43Comment: Testing | 0.00 - 0.80 | EXTERNAL | | | Monocytes | performed at [facility], [address] | K/uL | LAB | | | | [address], | | | | | | [place] [address] | | | | + + + + + + | Absolute | 0.00Comment: Testing | 0.00 - 0.50 | EXTERNAL | | | Eosinophils | performed at [facility], [address] | K/uL | LAB | | | | [address], | | | | | | [place] [address] | | | | + + + + + + | Absolute | 0.02Comment: Testing | 0.00 - 0.10 | EXTERNAL | | | Basophils | performed at [facility], [address] | K/uL | LAB | | | | [address], | | | | | | [place] [address] | | | | + + + [...] | | | | | [place] [address] | | | | + + + + + + | Differentia | SLIDE SCANNED, AGREES | | EXTERNAL | | | l Comments | WITH AUTOMATED | | LAB | | | | RESULTS.Comment: Testing | | | | | | performed at [facility], [address] | | | | | | [address], | | | | | | [place] [address] | | | | + + + [...] [place], | | | | | | [place] [address] | | | | + + + [...] | | | | | [place] [address] | | | | + + + [...] | | | | | [place] [address] | | | | + + + + + + | K | 4.7Comment: Testing | 3.5 - 4.9 | EXTERNAL | | | | performed at [facility], [address] | mmol/L | LAB | | | [address], | | | | | | [place] [address] | | | | + + + + + + | Cl | 96 (L)Comment: Testing | 99 - 109 mmol/L | EXTERNAL | | | | performed at [facility], [address] | | LAB | | | | [address], | | | | | | [place] [address] | | | | + + + + + + | CO2 | 22 (L)Comment: Testing | 23 - 32 mmol/L | EXTERNAL | | | | performed at [facility], [address] | | LAB | | | | [address], | | | | | | [place] [address] | | | | + + + + + + | Anion Gap | 21 (H)Comment: Testing | 5 - 20 mmol/L | EXTERNAL | | | | performed at [facility], [address] | | LAB | | | | [address], | | | | | | [place] [address] | | | | + + + + + + | Glucose, | 248 (H)Comment: Testing | 65 - 99 mg/dL | EXTERNAL | | | Fasting | performed at [facility], [address] | | LAB | | | | [address], | | | | | | [place] [address] | | | | + + + + + + | BUN | 74 (H)Comment: Testing | 8 - 25 mg/dL | EXTERNAL | | | | performed at [facility], [address] | | LAB | | | | [address], | | | | | | [place] [address] | | | | + + + + + + | Creatinine | 8.5 (H)Comment: Testing | 0.70 - 1.30 | EXTERNAL | | | | performed at [facility], [address] | mg/dL | LAB | | | | [address], | | | | | | [place] [address] | | | | + + + + + + | BUN/Creatin | 9Comment: Testing | | EXTERNAL | | | ine Ratio | performed at [facility], [address] | | LAB | | | | [address], | | | | | | [place] [address] | | | | + + + + + + | Calcium | 7.8 (L)Comment: Testing | 8.5 - 10.5 | EXTERNAL | | | | performed at [facility], [address] | mg/dL | LAB | | | | [address], | | | | | | [place] [address] | | | | + + + [...] W | | | | | | [facility], | | | | | | [place] [address] | | | | + + + [...] | | | Fingerstick | performed at [facility];[address] | | LAB | | | | [address];[place], [place] | | | | | | [address] | | | | + + + [...] | | | Fingerstick | performed at [facility] | | LAB | | | | [address];[place] | | | | | | [address] | | | | + + + [...] | | | performed at [facility];[address] | mmol/L | LAB | | | | [address];[place], [place] | | | | | | [address] | | | | + + + [...] | | | performed at [facility] | | LAB | | | | [address];[place] | | | | | | [address] | | | | + + + [...] | | | performed at [facility];[address] | | LAB | | | | [address];[place], [place] | | | | | | [address] | | | | + + + [...] | | | Fingerstick | performed at [facility];[address] | | LAB | | | | [address];[place] | | | | | | [address] | | | | + + + [...] | | | Fingerstick | performed at [facility];[address] | | LAB | | | | [address];[place] | | | | | | [address] | | | | + + + [...] | | | | | performed at [facility];[address] | | | | | | [facility];[place], [place] | | | | | | [address] | | | | + + + [...] + + + | WBC | 37.63 ()Comment: | 3.80 - 11.00 | EXTERNAL | | | | CALLED TO LAUREN Messer | Ellie/uL | LAB | | | | RN/ICU AT 0523 BY WMREAD | | | | | | BACK RESULTS | | | | | | VERIFIEDTesting | | | | | | performed at [facility] | | | | | | [address];[place] | | | | | | [address] | | | | + + + + + + | RED CELL | 4.18 (L)Comment: Testing | 4.20 - 5.70 | EXTERNAL | | | COUNT | performed at [facility];[address] | M/uL | LAB | | | | [address];[place] | | | | | | [address] | | | | + + + + + + | Hgb | 12.3 (L)Comment: Testing | 13.2 - 17.0 | EXTERNAL | | | | performed at [facility]888 | g/dL | LAB | | | | [address];[place] | | | | | | [address] | | | | + + + + + + | Hematocrit, | 37.9 (L)Comment: Testing | 39.0 - 50.0 % | EXTERNAL | | | POC | performed at [facility];[address] | | LAB | | | | [address];[place] | | | | | | [address] | | | | + + + + + + | MCV | 90.8Comment: Testing | 80.0 - 100.0 fl | EXTERNAL | | | | performed at [facility];[address] | | LAB | | | | [address];[place] | | | | | | [address] | | | | + + + + + + | MCH | 29.5Comment: Testing | 27.0 - 34.0 pg | EXTERNAL | | | | performed at [facility];[address] | | LAB | | | | [address];[place] | | | | | | [address] | | | | + + + + + + | MCHC | 32.4Comment: Testing | 32.0 - 35.5 | EXTERNAL | | | | performed at [facility];888 | g/dL | LAB | | | | [address];[place] | | | | | | [address] | | | | + + + + + + | RDW-CV | 53.8 (H)Comment: Testing | 37 - 53 fl | EXTERNAL | | | | performed at [facility];[address] | | LAB | | | | [address];[place] | | | | | | [address] | | | | + + + + + + | Platelet | 188Comment: Testing | 150 - 400 K/uL | EXTERNAL | | | Count | performed at [facility];[address] | | LAB | | | Plasma | [address];[place] | | | | | | [address] | | | | + + + + + + | MPV | 7.7Comment: Testing | fl | EXTERNAL | | | | performed at [facility];[address] | | LAB | | | | [address];[place] | | | | | | [address] | | | | + + + + + + | Differentia | MANUALComment: Testing | | EXTERNAL | | | l Type | performed at [facility];[address] | | LAB | | | | [address];[place] | | | | | | [address] | | | | + + + + + + | Segmented | 88Comment: Testing | % | EXTERNAL | | | Neutrophils | performed at [facility];[address] | | LAB | | | Manual | [address];[place] | | | | | | [address] | | | | + + + + + + | % Bands | 10Comment: Testing | % | EXTERNAL | | | | performed at [facility];[address] | | LAB | | | | [address];[place] | | | | | | [address] | | | | + + + + + + | Lymphocytes | 1Comment: Testing | % | EXTERNAL | | | Manual | performed at [facility];[address] | | LAB | | | | [address];[place] | | | | | | [address] | | | | + + + + + + | Monocytes | 1Comment: Testing | % | EXTERNAL | | | Manual | performed at [facility];8 | | LAB | | | | [address];[place] | | | | | | [address] | | | | + + + + + + | Absolute | 33.11 (H)Comment: | 1.90 - 7.40 | EXTERNAL | | | Neutrophils | Testing performed at | K/uL | LAB | | | | [facility];[address];[place] [address] | | | | + + + + + + | Bands | 3.76 (H)Comment: Testing | 0.00 - 0.20 | EXTERNAL | | | Manual | performed at [facility];8 | K/uL | LAB | | | | [address];[place] | | | | | | [address] | | | | + + + + + + | Absolute | 0.38 (L)Comment: Testing | 1.00 - 3.90 | EXTERNAL | | | Lymphocytes | performed at [facility];888 | K/uL | LAB | | | | [address];[place] | | | | | | [address] | | | | + + + + + + | Absolute | 0.38Comment: Testing | 0.00 - 0.80 | EXTERNAL | | | Monocytes | performed at [facility];888 | K/uL | LAB | | | | [address];[place] | | | | | | [address] | | | | + + + + + + | RBC | NORMAL PLT MORPHComment: | | EXTERNAL | | | Morphology | 1+ANISOTesting | | LAB | | | | performed at [facility];[address] | | | | | | [address];[place] | | | | | | [address] | | | | | | | [...] | | | Fingerstick | performed at [facility];[address] | | LAB | | | | [address];[place] | | | | | | [address] | | | | + + + [...] | | | | | | [place] [address] | | | | + + + + + + | T3, Total | 40 (L)Comment: Testing | 80 - 200 ng/dL | EXTERNAL | | | | performed at [facility], [address] | | LAB | | | | Katrina Castaneda | | | | | | [place] [address] | | | | + + + [...] | | | | | [place] [address] | | | | + + + + + + | RED CELL | 4.32Comment: Testing | 4.20 - 5.70 | EXTERNAL | | | COUNT | performed at [facility], [address] | M/uL | LAB | | | | [address], | | | | | | [place] [address] | | | | + + + + + + | Hgb | 12.9 (L)Comment: Testing | 13.2 - 17.0 | EXTERNAL | | | | performed at [facility], [address] | g/dL | LAB | | | | [address], | | | | | | [place] [address] | | | | + + + + + + | Hematocrit, | 40.3Comment: Testing | 39.0 - 50.0 % | EXTERNAL | | | POC | performed at [facility], [address] | | LAB | | | | [address], | | | | | | [place] [address] | | | | + + + + + + | MCV | 93.2Comment: Testing | 80.0 - 100.0 fl | EXTERNAL | | | | performed at [facility], [address] | | LAB | | | [address], | | | | | | [place] [address] | | | | + + + + + + | MCH | 29.8Comment: Testing | 27.0 - 34.0 pg | EXTERNAL | | | | performed at [facility], [address] | | LAB | | | | [address], | | | | | | [place] [address] | | | | + + + + + + | MCHC | 32.0Comment: Testing | 32.0 - 35.5 | EXTERNAL | | | | performed at [facility], [address] | g/dL | LAB | | | | [address], | | | | | | [place] [address] | | | | + + + + + + | RDW-CV | 55.6 (H)Comment: Testing | 37 - 53 fl | EXTERNAL | | | | performed at [facility], [address] | | LAB | | | | [address], | | | | | | [place], [place] [address] | | | | + + + + + + | Platelet | 182Comment: Testing | 150 - 400 K/uL | EXTERNAL | | | Count | performed at [facility], [address] | | LAB | | | Plasma | [address], | | | | | | [place], [place] [address] | | | | + + + + + + | MPV | 8.0Comment: Testing | fl | EXTERNAL | | | | performed at [facility], [address] | | LAB | | | | [address], | | | | | | [place], [place] [address] | | | | + + + + + + | Differentia | MANUALComment: Testing | | EXTERNAL | | | l Type | performed at [facility], [address] | | LAB | | | | [address], | | | | | | [place], [place] [address] | | | | + + + + + + | Segmented | 90Comment: Testing | % | EXTERNAL | | | Neutrophils | performed at [facility], [address] | | LAB | | | Manual | [address], | | | | | | [place] [address] | | | | + + + + + + | % Bands | 6Comment: Testing | % | EXTERNAL | | | | performed at [facility], [address] | | LAB | | | | [address], | | | | | | [place] [address] | | | | + + + + + + | Lymphocytes | 2Comment: Testing | % | EXTERNAL | | | Manual | performed at [facility], [address] | | LAB | | | | [address], | | | | | | [place] [address] | | | | + + + + + + | Monocytes | 2Comment: Testing | % | EXTERNAL | | | Manual | performed at [facility], [address] | | LAB | | | | [address], | | | | | | [place] [address] | | | | + + + + + + | Absolute | 36.66 (H)Comment: | 1.90 - 7.40 | EXTERNAL | | | Neutrophils | Testing performed at | K/uL | LAB | | | | [facility], [address] [facility] | | | | | | [place] | | | | | | [address] | | | | + + + + + + | Bands | 2.44 (H)Comment: Testing | 0.00 - 0.20 | EXTERNAL | | | Manual | performed at [facility], [address] | K/uL | LAB | | | | [address], | | | | | | [place] [address] | | | | + + + + + + | Absolute | 0.81 (L)Comment: Testing | 1.00 - 3.90 | EXTERNAL | | | Lymphocytes | performed at [facility], [address] | K/uL | LAB | | | | [address], | | | | | | [place] [address] | | | | + + + + + + | Absolute | 0.81 (H)Comment: Testing | 0.00 - 0.80 | EXTERNAL | | | Monocytes | performed at [facility], [address] | K/uL | LAB | | | | [address], | | | | | | [place] [address] | | | | + + + + + + | RBC | 1+Comment: ANISONORMAL | | EXTERNAL | | | Morphology | PLT MORPHTesting | | LAB | | | | performed at [facility], [address] | | | | | | [address], | | | | | | [place] [address] | | | | | | | [...] + + + + | TSI | 9.96 (H)Comment: Testing | 0.45 - 5.10 | EXTERNAL | | | | performed at [facility], [address] | uIU/mL | LAB | | | | [address], | | | | | | [place] [address] | | | | + + + [...] | | | (REF) | performed at [facility], [address] | | LAB | | | | [address], | | | | | | [place] [address] | | | | + + + [...] | | | | | [place] [address] | | | | + + + [...] | | | | | [place] [address] | | | | + + [...] | EXTERNAL | | | A1c | Ivorian Diabetes | | LAB | | | [...] at [facility], [address] | | | | | | [address] | | | | | | [place] [address] | | | | + + + [...] | | | | | | [address] | | | | | | [place] [address] | | | | + + [...] | | | | | [place] [address] | | | | + + + + + + | K | 5.2 (H)Comment: SPECIMEN | 3.5 - 4.9 | EXTERNAL | | | | NOT HEMOLYZEDTesting | mmol/L | LAB | | | | performed at [facility], [address] | | | | | | [address], | | | | | | [place] [address] | | | | + + + + + + | Cl | 101Comment: Testing | 99 - 109 mmol/L | EXTERNAL | | | | performed at [facility], [address] | | LAB | | | | [address], | | | | | | [place] [address] | | | | + + + + + + | CO2 | 23Comment: Testing | 23 - 32 mmol/L | EXTERNAL | | | | performed at [facility], [address] | | LAB | | | | [address], | | | | | | [place] [address] | | | | + + + + + + | Anion Gap | 20Comment: Testing | 5 - 20 mmol/L | EXTERNAL | | | | performed at [facility], [address] | | LAB | | | | [address], | | | | | | [place] [address] | | | | + + + + + + | Glucose, | 194 (H)Comment: Testing | 65 - 99 mg/dL | EXTERNAL | | | Fasting | performed at [facility], [address] | | LAB | | | | [address], | | | | | | [place] [address] | | | | + + + + + + | BUN | 40 (H)Comment: Testing | 8 - 25 mg/dL | EXTERNAL | | | | performed at [facility], [address] | | LAB | | | | [address], | | | | | | [place] [address] | | | | + + + + + + | Creatinine | 7.5 (H)Comment: Testing | 0.70 - 1.30 | EXTERNAL | | | | performed at [facility], [address] | mg/dL | LAB | | | | [address], | | | | | | [place] [address] | | | | + + + + + + | BUN/Creatin | 5Comment: Testing | | EXTERNAL | | | ine Ratio | performed at [facility], [address] | | LAB | | | | [address], | | | | | | [place] [address] | | | | + + + + + + | Calcium | 7.8 (L)Comment: Testing | 8.5 - 10.5 | EXTERNAL | | | | performed at [facility], [address] | mg/dL | LAB | | | | [address], | | | | | | [place] [address] | | | | + + + [...] | | | | | [place] [address] | | | | + + + [...] | | | Fingerstick | performed at [facility];[address] | | LAB | | | | [address];[place] | | | | | | [address] | | | | + + + [...] | | | performed at [facility];[address] | mmol/L | LAB | | | | [address];[place] | | | | | | [address] | | | | + + + [...] | | | Fingerstick | performed at [facility];[address] | | LAB | | | | [address];[place], [place] | | | | | | [address] | | | | + + + [...] | | | Fingerstick | performed at [facility] | | LAB | | | | [address];[place] | | | | | | [address] | | | | + + + [...] | | | performed at [facility];[address] | mmol/L | LAB | | | | [address];[place], [place] | | | | | | [address] | | | | + + + [...] | | | performed at [facility];[address] | mmol/L | LAB | | | | [address];[place], [place] | | | | | | [address] | | | | + + + [...] | | REQUESTS S GRAM DONE AT [facility] GRAM STAIN | | | GREATER THAN [...] [place] | | | | | | [address] | | | | + + + [...] | | | Alcohol | performed at [facility];[address] | | LAB | | | | [address];[place], [place] | | | | | | [address] | | | | + + + [...] | EXTERNAL LAB | | performed at [facility];[address] [place] [address];[place] [address] CORRECTED ON 04/30 | | | AT 1403: PREVIOUSLY REPORTED NO GROWTH VIRAL CULT DFA STAIN | | | ACCESSION NO. | | | [id number] SPECIMEN SOURCE | | | NASOPHARYNGEAL DFA | | | SPECIMEN CONTAINED TOO FEW CELLS FOR | | | EVALUATION BY DIRECT FLUORESCENT | | | ANTIBODY STAIN. RESULT | | | PRELIMINARY: NO VIRUS ISOLATED AT 7 | | | DAYS. | | | FINAL: NO VIRUS ISOLATED AT 14 DAYS. | | | Testing performed at [facility], [address] [place] [address] | | | REPORT STATUS REPORT STATUS | | | FINAL 05/14/2016 Testing performed at [facility], [address] | | | [facility] [address] | | + + + + +---------+ + + | Performing | Address | City/State/Zipcode | Phone Number | | Organization | | | | + +---------+ + + | EXTERNAL LAB | | | | + +---------+ + + Influenza A and B CHELO Alva (04/28/2016 1:39 PM PDT) + + | Specimen | + + | | + + + + + | Narrative | Performed At | + + + | INFLUENZA A NEGATIVE Testing | EXTERNAL LAB | | performed by [facility] Testing performed at [facility];[address] [facility];[place], [place] | | | [address] INFLUENZA B NEGATIVE | | | Testing performed by [facility] Testing performed at [facility];[address];[place] [address] | | + + + + +---------+ [...] | | Testing performed at [facility];[address] [place] [address];[place] [address] MRSA PCR | | | NEGATIVE Testing performed at | | | [address];[place] [address] | | + + + + +---------+ [...] | ENRIQUE POTTER XR CHEST 1 VIEW 04/28/2016 11:53 [...] Rad Conversion - 02/05/2019 5:14 PM PDT ENRIQUE POTTERGAURAV CHEST 1 VIEW04/28/2016 11:53 | | [...]
--- OUTSIDE RECORDS SUMMARY | ~2019-05-20 | XMS | Encounter Summary ---
Demographics + + + | Address | [address] | | | [place] [address] | + + + | Home Phone [...] Team Providers + +------+ + | Care Fresh Work Wrapper Layer Name | Role | Phone | + +------+ + | Andry Deng DO | PCP | | + +------+ + Encounter Details +--------+ + + + + | Date | Type | Department | Care Team | Description | +--------+ + + + + | 04/26/ | Orders Only | [facility] | Conversion | | | 2013 | | INFECTIOUS DISEASE | Transaction, | | | | | [address] | Provider Unknown | | | | | [place], [place] | [phone] | | | | | [phone] | (Fax) | | | | | [phone] | | | +--------+ + + + [...]
--- OUTSIDE RECORDS SUMMARY | ~2019-05-20 | XMS | Encounter Summary ---
Demographics + + + | Address | [address] | | | [place] [address] | + + + | Home Phone [...] Team Providers + +------+ + | Care Superintendent Power Name | Role | Phone | + +------+ + PCP | Unavailable | + +------+ + Encounter Details +--------+ + + + + | Date | Type | Department | Care Team | Description | +--------+ + + + + | 09/10/ | Hospital | [facility] | Kelvin Haque, | Anemia; | | 2012 - | Encounter | MEDICAL [facility]ENTER | [address] | Hypoalbuminemia; | | | | CLINICAL DECISION | [place] [address] | ESRD (end stage | | 09/11/ | | [address] | [phone] | renal disease) on | | 2012 | | [place], [place] | | dialysis (HCC); | | | | [address] | | Acute blood loss | | | | [phone] | | anemia; Back pain, | | [...] documented as of this encounter Discharge Summaries Favio Dawkins MD - 09/11/2012 5:50 PM PDTFormatting of this note might be diff erent from the original. Discharge Summaries by Favio Dawkins MD at 09/11/121749 Author: Favio Dawkins MD Service: (none) Author Type: Physician Filed: 09/11/12 1800 Date of Service: 09/11/121749 Status: Signed Brine Well Operator: Favio Dawkins MD (Physician) [facility] Service: Hospitalist Discharge Summary Date of Admission: 09/10/2012 Date of Discharge: 09/11/12 Discharge Provider: Favio Dawkins MD Treatment Team: Consulting Physician: Eduardo Cui MD Consulting Physician: Juan Cook MD Admitting Provider: Kelvin Haque MD Discharge Diagnoses: Principal Problem (Resolved): *Anemia [...] W/ EGD; Surgeon: John Singleton MD; Location: [facility] ENDOSCOPY; Se rvice: Gastroenterology; Laterality: N/A; Av fistula placement 05/06/2012 Procedure: AV FISTULA; Surgeon: Oskar Meyer MD; Location: [facility] MAIN OR; Service: Vascul ar; Laterality: Left; Left arm possible right Unlisted procedure arthroscopy shoulder rt , ligaments Knee arthroscopy 07/07/2012 Procedure: KNEE - ARTHROSCOPY; Surgeon: Favio Raza MD; Location: [facility] MAIN OR; [facility]: Orthopedics; Laterality: Right; After 1530 Catheter removal 07/07/2012 Procedure: DIALYSIS CATHETER REMOVAL; Surgeon: Oskar Meyer MD; Location: [facility] BEDSIDE RI OCEDURE; Service: General; Laterality: Right; perm cath Dialysis fistula creation 07/07/2012 Procedure: DIALYSIS CATHETER INSERTION; Surgeon: Oskar Meyer MD; Location: [facility] BEDSIDE PROCEDURE; Service: General; Laterality: Left; temporary dialysis catheter Av fistula repair 07/11/2012 Procedure: AV FISTULA GRAFT REPAIR/REVISION; Surgeon: Oskar Meyer MD; Location: [facility] OR; Service: Vascular; Laterality: Left; Superficialization of brachiobasilic fistula and right IJ perm cath insertion Dialysis fistula creation 07/11/2012 Procedure: DIALYSIS CATHETER INSERTION; Surgeon: Oskar Meyer MD; Location: [facility] MAIN OR; Service: Vascular; Laterality: [...] 20 mg by mouth nightly. ergocalciferol (DRISDOL) 20832 UNITS capsule Take 1 capsule by mouth [...] for: persistant dizziness or light-headedness Follow up: [facility] [address] [facility] [address] in 3 days Juan Cook MD [address] [facility] [address] Call Eduardo Cui MD [address] [facility] [phone] Call Medication List As of 09/11/2012 5:58 PM CONTINUE taking these medications albuterol (2.5 MG/3ML) 0.083% nebulizer solution Commonly known as: PROVENTIL amlodipine 10 MG tablet Commonly known as: NORVASC b complex-vitamin c-folic acid 0.8 MG Tabs Cholecalciferol 2000 UNITS Tabs citalopram 20 MG tablet Commonly known as: CeleXA ergocalciferol 45761 UNITS capsule Commonly known as: DRISDOL Take [...] follow-up and documentati on of discharge summary. Favio Dawkins MD 09/11/2012 documented in this encounter [...] Progress Notes by Lolis Pfeiffer RN at 09/11/121635 Author: Lolis Pfeiffer RN Service: Wound/Ostomy Care Author Type: Registered Nurse Filed: 09/11/12 4022 Date of Service: 09/11/121635 Status: Signed Brine Well Operator: Lolis Pfeiffer RN (Registered Nurse) The patient [...] the ulcer heals. Lolis Pfeiffer RN CWOCN EditaJuan kim - 09/11/2012 12:00 PM PDTFormatting of this note might be different from the or iginal. Progress Notes by Juan Cook MD at 09/11/12 1200 Author: Juan Cook MD Service: Nephrology Author Type: Physician Filed: 12/17/122032 Date of Service: 09/11/121199 Status: Signed Brine Well Operator: Juan Cook MD (Physician) [facility] Service: NEPHROLOGY dialysis Note Enrique Potter 47 y.o. [id number] 325/325-2 male [facility] Day: LOS: 1 day Enrique Potter [...] W/ EGD; Surgeon: John Singleton MD; Location: [facility] ENDOSCOPY; Se rvice: Gastroenterology; Laterality: N/A; Av fistula placement 05/06/2012 Procedure: AV FISTULA; Surgeon: Oskar Meyer MD; Location: [facility] MAIN OR; Service: Vascul ar; Laterality: Left; Left arm possible right Unlisted procedure arthroscopy shoulder rt , ligaments Knee arthroscopy 07/07/2012 Procedure: KNEE - ARTHROSCOPY; Surgeon: Favio Raza MD; Location: [facility] MAIN OR; ervice: Orthopedics; Laterality: Right; After 1530 Catheter removal 07/07/2012 Procedure: DIALYSIS CATHETER REMOVAL; Surgeon: Oskar Meyer MD; Location: [facility] BEDSIDE RI OCEDURE; Service: General; Laterality: Right; perm cath Dialysis fistula creation 07/07/2012 Procedure: DIALYSIS CATHETER INSERTION; Surgeon: Oskar Meyer MD; Location: [facility] BEDSIDE PROCEDURE; Service: General; Laterality: Left; temporary dialysis catheter Av fistula repair 07/11/2012 Procedure: AV FISTULA GRAFT REPAIR/REVISION; Surgeon: Oskar Meyer MD; Location: [facility] OR; Service: Vascular; Laterality: Left; Superficialization of brachiobasilic fistula and right IJ perm cath insertion Dialysis fistula creation 07/11/2012 Procedure: DIALYSIS CATHETER INSERTION; Surgeon: Oskar Meyer MD; Location: [facility] MAIN OR; Service: Vascular; Laterality: [...] BIOLOGICAL; 2 STEP KIDSUNEMPLOYED BEFORE WORKED AT [employer] N[employer] ETOH QUIT 15 YEARS AGODRUGS: quit [...] chloride 10 mL Intravenous Q8H vitamin B xwwgxuw-R-fvmne acid 1 tablet Oral Daily with breakfast [...] HAND SPECIAL REQUESTS Value: Testing performed at [facility];[address] [place] [address] CULTURE NO GROWTH AT THIS TIME CULTURE Value: Testing performed at [facility];[address] [place] [address] REPORT STATUS PENDING BLOOD CULTURE, SET 2 Collection Time 09/10/12 7:44 PM Component Value Range Specimen Description BLOOD SPECIAL REQUESTS R HAND SPECIAL REQUESTS Value: Testing performed at [facility];[address] [place] [address] CULTURE NO GROWTH AT THIS TIME CULTURE Value: Testing performed at [facility];[address] [place] [address] REPORT STATUS PENDING POCT GLUCOSE Collection Time [...] ANEMIA OF CKD WORSENING GI CONSULTED DR AGRAWAL TRANSFUSION PER HOSPITALIST The patient presently on [...] Eladio Clinton RN Service: (none) Author Type: Cell Builder Filed: 09/11/12 0851 Date of Service: 09/11/12845 Status: Signed Brine Well Operator: Eladio Clinton RN (Cell Builder) Case Management: Met with patient to discuss discharge plan. He lives in [place] with his spouse. He gets HD M-W-. He uses a walker or w/c. PCP is at the [facility] in [facility]. His spouse change his wound dressing. Family to transport. onver quique Transaction, Provider Unknown - 09/11/2012 3:38 AM PDT Progress Notes by Lou Mcclellan RN at 09/11/12337 Author: Lou Mcclellan RN Service: (none) Author Type: Registered Nurse Filed: 09/11/12341 Date of Service: 09/11/12337 Status: Signed Brine Well Operator: Lou Mcclellan RN (Registered Nurse) Dr. Siddiqi [...] 09/10/122033 Date of Service: 09/10/122033 Status: Signed Brine Well Operator: Carmina Lara RPH (Pharmacist) Clinical Pharmacy Note: Renal Monitoring Enrique Potter 47 y.o. male Height: 170.2 cm Weight: 73.8 kg Patient is on hemodialysis. Pharmacy dosing for renal function per Dr. Haque. Currently, there are no medications needing to be adjusted. Pharmacy will continue to monit or for changes in medication orders and adjust accordingly. Carmina Lara PharmD 09/10/2012 8:33 PM docume nted in this encounter Plan [...] HAND | | | Testing performed at [facility];[address] [place] [address] | | | Bl;[place] [address] CULTURE | | | NO GROWTH IN 5 DAYS. | | | Testing performed at [facility];[address] [facility];[place] [address] | | | REPORT STATUS 09/16/2012 FINAL [...] HAND | | | Testing performed at [facility];[address] [place] [address] | | | [facility];[place] [address] CULTURE | | | NO GROWTH IN 5 DAYS. | | | Testing performed at [facility];[address] [place] [address];[place] [address] | | | REPORT STATUS 09/16/2012 FINAL [...] Khalif Palm - 02/13/2019 4:30 PM PDT HISTORY:Neck and [...]
--- OUTSIDE RECORDS SUMMARY | ~2019-05-20 | XMS | Encounter Summary ---
Demographics + + + | Address | [address] | | | [place] [address] | + + + | Home Phone | | + + + | Preferred Language | Unknown | + + + | Marital Status | Unknown | + + + | Quaker Affiliation | 1076 | + + + | Race | Unknown | + + + | Ethnic Group | Unknown | + + + Author + + + | Author | [facility] | | | and [place] | + + + | Organization | [facility] | | [...] Team Providers + +------+ + | Care Baggage Inspector Name | Role | Phone | + +------+ + PCP | Unavailable | + +------+ + Encounter Details +--------+ + + + + | Date | Type | Department | Care Team | Description | +--------+ + + + + | 04/28/ | Hospital | [facility] | Conversion | Unknown cause of | | 2015 | Encounter | CONVERSION DEP [address] | Transaction, | injury, initial | | | | [address] | Provider Unknown | encounter | | | | [place], [place] | | | | | | [address] | (Fax) | | | | | [phone] | | | +--------+ + + + [...] + + | Khalif Palm Conversion - 02/05/2019 5:14 PM PDT This is a non-reportable procedure | | without a radiologist report and isused for image storage only | + + documented in this encounter Visit Diagnoses + + | Diagnosis | + + | Unknown cause of injury, initial encounter | + + documented in this encounter"
--- OUTSIDE RECORDS SUMMARY | ~2019-05-20 | XMS | Encounter Summary ---
Demographics + + + | Address | [address] | | | [place] [address] | + + + | Home Phone | | + + + | Preferred Language | Unknown | + + + | Marital Status | Unknown | + + + | Mandaeism Affiliation | 1076 | + + + | Race | Unknown | + + + | Ethnic Group | Unknown | + + + Author + + + | Author | [facility] | | | and [place] | + + + | Organization | [facility] | | | [...] Team Providers + +------+ + | Care Drop Crew Laborer Name | Role | Phone | + +------+ + PCP | Unavailable | + +------+ + Encounter Details +--------+ + + + + | Date | Type | Department | Care Team | Description | +--------+ + + + + | 11/12/ | Orders Only | [facility] | Conversion | | | 2018 | | [facility]PH[facility] [place] | Transaction, | | | | | [address] | Provider Unknown | | | | | [address] [place], [place] | | | | | | [address] | (Fax) | | | | | [phone] | | | +--------+ + + + [...]
--- OUTSIDE RECORDS SUMMARY | ~2019-05-20 | XMS | Encounter Summary ---
Demographics + + + | Address | [address] | | | [place] [address] | + + + | Home Phone | | + + + | Preferred Language | Unknown | + + + | Marital Status | Unknown | + + + | Samaritan Affiliation | 1076 | + + + | Race | Unknown | + + + | Ethnic Group | Unknown | + + + Author + + + | Author | [facility] | | | and [place] | + + + | Organization | [facility] | | | [...] Team Providers + +------+ + | Care Graphic Coordinator Name | Role | Phone | [...] Unknown | | | | | [place], [place] | | | | | | [address] | (Fax) | | | | | [phone] | | | +--------+ + + + [...] Patient | performed at [facility];[address] | | LAB | | | | [address];[place], [place] | | | | | | [address] | | | | + + + [...] | | performed at [facility];[address] | | | | | | [facility];[place], [place] | | | | | | [address] | | | | + + + [...] | | performed at [facility];[address] | | LAB | | | | [address];[place] | | | | | | [address] | | | | + + + + + + | RED CELL | 3.83 (L)Comment: Testing | 4.20 - 5.70 | EXTERNAL | | | COUNT | performed at [facility];[address] | M/uL | LAB | | | | [address];[place] | | | | | | [address] | | | | + + + + + + | Hgb | 11.5 (L)Comment: Testing | 13.2 - 17.0 | EXTERNAL | | | | performed at [facility];888 | g/dL | LAB | | | | [address];[place] | | | | | | [address] | | | | + + + + + + | Hematocrit, | 35.1 (L)Comment: Testing | 39.0 - 50.0 % | EXTERNAL | | | POC | performed at [facility];[address] | | LAB | | | | [address];[place] | | | | | | [address] | | | | + + + + + + | MCV | 91.8Comment: Testing | 80.0 - 100.0 fl | EXTERNAL | | | | performed at [facility];[address] | | LAB | | | | [address];[place] | | | | | | [address] | | | | + + + + + + | MCH | 30.2Comment: Testing | 27.0 - 34.0 pg | EXTERNAL | | | | performed at [facility];[address] | | LAB | | | | [address];[place] | | | | | | [address] | | | | + + + + + + | MCHC | 32.9Comment: Testing | 32.0 - 35.5 | EXTERNAL | | | | performed at [facility];888 | g/dL | LAB | | | | [address];[place] | | | | | | [address] | | | | + + + + + + | RDW-CV | 54.3 (H)Comment: Testing | 37 - 53 fl | EXTERNAL | | | | performed at [facility];[address] | | LAB | | | | [address];[place] | | | | | | [address] | | | | + + + + + + | Platelet | 344Comment: Testing | 150 - 400 K/uL | EXTERNAL | | | Count | performed at [facility];[address] | | LAB | | | Plasma | [address];[place] | | | | | | [address] | | | | + + + + + + | MPV | 6.1Comment: Testing | fl | EXTERNAL | | | | performed at [facility];[address] | | LAB | | | | [address];[place] | | | | | | [address] | | | | + + + + + + | Differentia | AUTOMATEDComment: | | EXTERNAL | | | l Type | Testing performed at | | LAB | | | | [facility];[address];[place] [address] | | | | + + + + + + | % Segmented | 51.3Comment: Testing | % | EXTERNAL | | | | performed at [facility];[address] | | LAB | | | Neutrophils | [address];[place] | | | | | | [address] | | | | + + + + + + | % | 28.0Comment: Testing | % | EXTERNAL | | | Lymphocytes | performed at [facility];[address] | | LAB | | | | [address];[place] | | | | | | [address] | | | | + + + + + + | % Monocytes | 11.3Comment: Testing | % | EXTERNAL | | | | performed at [facility];[address] | | LAB | | | | [address];[place] | | | | | | [address] | | | | + + + + + + | % | 8.5Comment: Testing | % | EXTERNAL | | | Eosinophils | performed at [facility];[address] | | LAB | | | | [address];[place] | | | | | | [address] | | | | + + + + + + | % Basophils | 0.9Comment: Testing | % | EXTERNAL | | | | performed at [facility];[address] | | LAB | | | | [address];[place] | | | | | | [address] | | | | + + + + + + | Absolute | 2.8Comment: Testing | 1.9 - 7.4 K/uL | EXTERNAL | | | Segmented | performed at [facility];[address] | | LAB | | | Neutrophils | [address];[place] | | | | | | [address] | | | | + + + + + + | Absolute | 1.5Comment: Testing | 1.0 - 3.9 K/uL | EXTERNAL | | | Lymphocytes | performed at [facility];[address] | | LAB | | | | [address];[place] | | | | | | [address] | | | | + + + + + + | Absolute | 0.6Comment: Testing | 0 - 0.8 K/uL | EXTERNAL | | | Monocytes | performed at [facility];[address] | | LAB | | | | [address];[place] | | | | | | [address] | | | | + + + + + + | Absolute | 0.5Comment: Testing | 0 - 0.5 K/uL | EXTERNAL | | | Eosinophils | performed at [facility];[address] | | LAB | | | | [address];[place] | | | | | | [address] | | | | + + + + + + | Absolute | 0.0Comment: Testing | 0 - 0.1 K/uL | EXTERNAL | | | Basophils | performed at [facility];[address] | | LAB | | | | [address];[place] | | | | | | [address] | | | | + + + [...] | | performed at [facility];[address] | mmol/L | LAB | | | | [address];[place] | | | | | | [address] | | | | + + + + + + | K | 4.8Comment: Testing | 3.5 - 4.9 | EXTERNAL | | | | performed at [facility];[address] | mmol/L | LAB | | | | [address];[place] | | | | | | [address] | | | | + + + + + + | Cl | 107Comment: Testing | 99 - 109 mmol/L | EXTERNAL | | | | performed at [facility];[address] | | LAB | | | | [address];[place] | | | | | | [address] | | | | + + + + + + | CO2 | 31Comment: Testing | 23 - 32 mmol/L | EXTERNAL | | | | performed at [facility];[address] | | LAB | | | | [address];[place] | | | | | | [address] | | | | + + + + + + | Anion Gap | 7Comment: Testing | 5 - 20 mmol/L | EXTERNAL | | | | performed at [facility];[address] | | LAB | | | | [address];[place] | | | | | | [address] | | | | + + + + + + | Glucose, | 89Comment: Testing | 65 - 99 mg/dL | EXTERNAL | | | Fasting | performed at [facility];[address] | | LAB | | | | [address];[place] | | | | | | [address] | | | | + + + + + + | BUN | 6 (L)Comment: Testing | 8 - 25 mg/dL | EXTERNAL | | | | performed at [facility];[address] | | LAB | | | | [address];[place] | | | | | | [address] | | | | + + + + + + | Creatinine | 4.60 (H)Comment: Testing | 0.70 - 1.30 | EXTERNAL | | | | performed at [facility];[address] | mg/dL | LAB | | | | [address];[place] | | | | | | [address] | | | | + + + + + + | BUN/Creatin | 1Comment: Testing | | EXTERNAL | | | ine Ratio | performed at [facility];[address] | | LAB | | | | [address];[place] | | | | | | [address] | | | | + + + + + + | Calcium | 8.5Comment: Testing | 8.5 - 10.2 | EXTERNAL | | | | performed at [facility];[address] | mg/dL | LAB | | | | [address];[place] | | | | | | [address] | | | | + + + [...] | | | at [facility];[address];[place] [address] | | | | + + + [...] EXTERNAL LAB | | Testing performed at [address];[place] [address] MRSA PCR | | | NEGATIVE Testing performed at | | | [address];[place] [address] | | + + + + +---------+ + + | Performing | Address | City/State/Zipcode | Phone Number | | Organization | | | | + +---------+ + + | EXTERNAL LAB | | | | + +---------+ + + documented in this encounter Visit Diagnoses Not on filedocumented in this encounter"
--- OUTSIDE RECORDS SUMMARY | ~2019-05-20 | XMS | Encounter Summary ---
Demographics + + + | Address | [address] | | | [place] [address] | + + + | Home Phone [...] + | Author | [facility] | | | and [place] | + + + | Organization | [facility] | | | [...] Providers + +------+ + | Care Field Marketer Name | Role | Phone | + +------+ + | Andry Deng DO | PCP | | + +------+ + Encounter Details +--------+ + + + + | Date | Type | Department | Care Team | Description | +--------+ + + + + | 05/26/ | Orders Only | [facility] | Conversion | | | 2013 | | INFECTIOUS DISEASE | Transaction, | | | | | [address] | Provider Unknown | | | | | [place], [place] | [phone] | | | | | [address] | | | | | | [phone] | | | +--------+ + + + [...] + + + | RED CELL | 4.27 | 10 | EXTERNAL | | | COUNT | | | LAB | | + +-------+ + + + | Hgb | 13.0 | g/dL | EXTERNAL | [...]
--- OUTSIDE RECORDS SUMMARY | ~2019-05-20 | XMS | Encounter Summary ---
Demographics + + + | Address | [address] | | | [place] [address] | + + + | Home Phone | | + + + | Preferred Language | Unknown | + + + | Marital Status | Unknown | + + + | Anglican Affiliation | 1076 | + + + | Race | Unknown | + + + | Ethnic Group | Unknown | + + + Author + + + | Author | [facility] | | | and [place] | + + + | Organization | [facility] | | | [...] Team Providers + +------+ + | Care Prepress Manager Name | Role | Phone | + +------+ + PCP | Unavailable | + +------+ + Encounter Details +--------+ + + + + | Date | Type | Department | Care Team | Description | +--------+ + + + + | 04/28/ | Hospital | [facility] | [place], | Acute respiratory | | 2016 - | Encounter | [facility] | [place], | failure with hypoxia | | | | CLINICAL DECISION | MD [address] | ([facility]); Acute | | 04/30/ | | [address] | [place], | respiratory failure | | 2016 | | [place], [place] | [place] [address] | with hypoxia and | | | | [address] | [phone] | hypercapnia ([facility]) | | | | [phone] | | | +--------+ + + + [...] Date of Service: 04/30/16 1029 Status: Addendum Mine Utility Operator: Khanh Rangel MD (Physician) Related Notes: Original Note by Khanh Rangel MD (Physician) filed at 04/30/16 1041 [facility] Service: Hospitalist Discharge Summary Date of Admission: [...] abuse, who was [facility] o [facility] due to shortness of breath. Per report, [...] and has had nausea and vomiting. In [facility], he was found to be in severe [...] thrombosis, polysubstance abuse, who was brought to [facility], due to sh ortness of breath. Per [...] quadrant 04/13/2012 Dialysis patient ([facility]) GI bleed 04/30/2012 from coumadin Walker as ambulation aid Gout Asthma pt not using inhaler any more, no symptoms DVT (deep venous thrombosis) ([facility]) x3 AV fistula ([facility]) lt arm Knee pain, right 07/06/2012 MSSA (methicillin susceptible Staphylococcus aureus) infection 04/11/2012 Anemia due to blood loss 04/30/2012 Amphetamine and other psychostimulant dependence, continuous 04/02/2012 Hyperphosphatemia 05/24/2012 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 Rash and nonspecific skin eruption 04/03/2012 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 Neuromuscular disorder ([facility]) neuropathy Hyperkalemia 11/09/2013 Chronic obstructive asthma with exacerbation ([facility]) 10/27/2013 SOB (shortness of breath) 10/27/2013 Diabetes mellitus type I ([facility]) Past Surgical History Procedure Laterality Date Unlisted procedure arthroscopy shoulder rt , ligaments Superficialization of av fistula Right 03/30/2014 Procedure: AV FISTULA - SUPERFICIALIZATION; Surgeon: Oskar Meyer MD; Location: [facility] MAIN OR; Service: Vascular; Laterality: Right; Av fistula placement Right 02/09/2014 Procedure: AV FISTULA; Surgeon: Oskar Meyer MD; Location: [facility] MA[facility] OR; Service: Vascul ar; Laterality: Right; Av fistula repair Left 07/11/2012 Procedure: AV FISTULA - GRAFT REPAIR/REVISION; Surgeon: Oskar Meyer MD; Location[facility]; Service: Vascular; Laterality: Left; Superficialization of brachiobasilic fistula and right IJ perm cath insertion Dialysis fistula creation Left 07/11/2012 Procedure: DIALYSIS CATHETER - INSERTION; Surgeon: Oskar Meyer MD; Location: [facility] R; Service: Vascular; Laterality: Left; removed dialysis catheter from left neck and plac ed new on in left chest, attempted in right neck but unable to place Catheter removal Right 07/07/2012 Procedure: DIALYSIS CATHETER - REMOVAL; Surgeon: Oskar Meyer MD; Location: [facility]ED[facility] PROCEDURE; Service: General; Laterality: Right; perm cath Dialysis fistula creation Left 07/07/2012 Procedure: DIALYSIS CATHETER - INSERTION; Surgeon: Oskar Meyer MD; Location: [facility] PROCEDURE; Service: General; Laterality: Left; temporary dialysis catheter Knee arthroscopy Right 07/07/2012 Procedure: KNEE - ARTHROSCOPY; Surgeon: Favio Raza MD; Location: [facility] OR; S ervice: Orthopedics; Laterality: Right; After 1530 Av fistula placement Left 05/06/2012 Procedure: AV FISTULA; Surgeon: Oskar Meyer MD; Location: [facility] OR; Service: Vascul ar; Laterality: Left; Left arm possible right Colonoscopy with egd N/A 05/01/2012 Procedure: COLONOSCOPY W/ EGD; Surgeon: John Singleton MD; Location: [facility] ENDOSCOPY; Se rvice: Gastroenterology; Laterality: N/A; [...] discharge procedures on file. [place]: [place] [address] [place] [address] In 1 [...] Note by Ema Rodriguez PT at 04/30/16 0708 Author: Ema Rodriguez PT Service: (none) Author Type: Physical Therapist Filed: 04/30/16 0286 Date of Service: 04/30/161404 Status: Signed Mine Utility Operator: Ema Rodriguez PT (Physical Therapist) 04/30/16 6064 PT Last Visit PT Received On 04/30/16 Reason for Treatment Deconditioning Requires PT Follow Up Yes Assistance Required 1 person It Risk And Assurance Manager Needed No Precautions Other Precautions falls Other [...] Note by Alexis Banegas RN at 04/30/16 6467 Author: Alexis Banegas RN Service: (none) Author Type: Registered Nurse Filed: 04/30/16 3661 Date of Service: 04/30/16 0878 Status: Signed Mine Utility Operator: Alexis Banegas RN (Registered Nurse) Pt discharged [...] 04/30/16811 Date of Service: 04/30/16811 Status: Signed Mine Utility Operator: Elana Bhatt RPH (Pharmacist) Per nurse note, [...] 04/30/16407 Date of Service: 04/30/16404 Status: Signed Mine Utility Operator: Madelyn Dimas RN (Registered Nurse) Patient to have hemodialysis at 0830 today. Continues to be hypertensive with SBP 140-160s. Blood glucose has been elevated at 300- . Madelyn Dimas RN onver quique Transaction, Provider Unknown - 04/29/2016 3:59 PM PST Progress Notes by Ambika Hanson RPH at 04/29/16 1414 Author: Ambika Hanson RPH Service: (none) Author Type: Pharmacist Filed: 04/29/161558 Date of Service: 04/29/161558 Status: Signed Mine Utility Operator: Ambika Hanson RPH (Pharmacist) Drug-Drug Interaction Report Ondansetron / QT Prolonging Agents 2 Significance: Major Warning: Additive QT interval prolongation may occur during coadministration of ondansetron and levofloxacin. Onset: Rapid Document Level: Possible Interacting Medications/Orders: Ondansetron Non-oral, Systemic QT Prolonging Agents 2 Oral or Non-Oral, Systemic 1. ondansetron Order ([id number]): ondansetron (ZOFRAN) injection 4 mg Route: Intravenous Start: 04/29/2016 1543 End: none Frequency: Every 6 Hours PRN 1. levofloxacin Order ([id number]): levofloxacin (LEVAQUIN) IVPB 250 mg Route: Intravenous [...] 04/29/161205 Date of Service: 04/29/161203 Status: Signed Mine Utility Operator: Fela Mayberry MD (Physician) Hospital Problem List: Principal Problem: Acute respiratory failure with hypoxia and hypercapnia ([facility]) Active Problems: Hypothyroidism 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) HTN (hypertension) ESRD (end stage renal disease) on dialysis ([facility]) Polysubstance abuse Hyponatremia Anemia of chronic disease [...] HD done emergently 04/28 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 Sec to [...] (none) Author Type: Physical Therapist Filed: 04/29/16 1409 Date of Service: 04/29/16 1142 Status: Signed Mine Utility Operator: Venita Mendes PT (Physical Therapist) 04/29/16 1142 PT Last Visit PT Received On 04/29/16 Reason for Treatment Deconditioning Requires PT Follow Up Awaiting tx order Follow up PT Only? Yes (Ongoing amb and OOB assessment) Focus for Next Treatment Equipment Trial (FWW) PT Eval/Reassessment Date 04/29/16 Assistance Required 1 person;2 person (2nd person lines) It Risk And Assurance Manager Needed No Home Environment Type of Home Home one story Home Exterior Layout 1-3 steps;Rail bilateral Home Interior Layout Lives on main level with bedroom/bathroom Bathroom Shower/Tub Tub/shower unit Bathroom Toilet Standard Bathroom Equipment Shower chair Bathroom Accessibility Accessible via walker Home Equipment Cane single point Prior Function Level of [place] Independent with functional mobility;Independent with ADLs;Independe nt [...] Barriers to Discharge Physical Deficits Impacting Functional [place] Recommendation Comments Pt demonstrates good strength and [...] Required 1 person;2 person (2nd person lines) It Risk And Assurance Manager Needed No Precautions Other Precautions Fall risk Other Comments Comments Chart reviewed. Pt is a 51 y.o. w/ significant PMH of T2DM, ESRD, on HD, hypothyr oidism, gout, asthma HTN, HPL, anemia of chronic disease, R IJ thrombosis, polysubstance abu se. Pt has reported URI symptoms in recent weeks. Pt transferred from [facility] d/ hy poxic respiratory failure. Pt supine [...] good w/ wide stance. Pt performed Tinetti -ASM and scored a 15/28, indicating a high [...] Barriers to Discharge Physical Deficits Impacting Functional [place] Recommendation Comments Pt demonstrates good strength and [...] Carmina Monge RN Service: (none) Author Type: Tawer Filed: 04/29/16 1032 Date of Service: 04/29/16 1029 Status: Signed Mine Utility Operator: Carmina Monge RN (Tawer) 04/29/16 1024 Discharge Planning Evaluation Admitting Diagnosis [...] Potter Relationship to Patient spouse Phone number [phone] Mental Status Oriented Prior functional status independent [...] admitted with respiratory failure. Pt lives in [place] with his and family. Pt states that [...] at 04/29/16829 Author: Nehal Simpson MD Service: Size Stamper Author Type: Physician Filed: 04/29/16853 Date of Service: 04/29/16829 Status: Signed Mine Utility Operator: Nehal Simpson MD (Physician) [facility] Service: Size Stamper Progress Note Enrique Potter 51 y.o. Hospital [...] thrombosis, polysubstance abuse, who was brought to [facility] due to shortness of breath. [...] chronic disease Chronic obstructive asthma with exacerbation ([facility]) Chronic steroid use Resolved Problems: * No [...] 04/29/16809 Date of Service: 04/29/16809 Status: Signed Mine Utility Operator: Curtis Victoria RPH (Pharmacist) Initiation of Vancomycin Pharmacy Dosing Enrique Potter 51 y.o. male 1.702 m (5' 7") 85.4 kg (188 lb 4.4 oz) Body mass index is 29.48 kg/(m^2). [place] Body Weight: Adjusted Body Weight: CREATININE Date Value Ref Range Status 04/29/2016 7.5* 0.70 - 1.30 mg/dL Final Comment: Testing performed at [facility], [address] [place] [address] Estimated CrCl : CREATININE: 7.5 mg/dL ABNORMAL [...] 0409 Date of Service: 04/29/16339 Status: Signed Mine Utility Operator: Marivel Sapp RN (Registered Nurse) Pt extubated and tolerated well. He was cleaned up and provided oral care, fresh linens. Wi ll continue monitor. onver quique Transaction, Provider Unknown - 04/28/2016 4:18 PM PDT Therapy Progress Note by Devaughn Ramos PT at 04/28/16 1618 Author: Devaughn Ramos PT Service: (none) Author Type: Physical Therapist Filed: 04/28/161618 Date of Service: 04/28/161617 Status: Signed Mine Utility Operator: Devaughn Ramos PT (Physical Therapist) 04/28/161617 PT Last Visit PT Received On 04/28/16 Requires PT Follow Up On hold Other Comments Comments pt. intubated at this time will continue to f/u as appropriate onzee Carlisleaction, Provider Unknown - 04/28/2016 1:39 PM PDT Progress Notes by Ambika Hanson RPH at 04/28/16 3032 Author: Ambika Hanson RPH Service: (none) Author Type: Pharmacist Filed: 04/28/161338 Date of Service: 04/28/161338 Status: Signed Mine Utility Operator: Ambika Hanson RPH (Pharmacist) Patient is a HD patient. Adjusted Levofloxacin to 250mg IVPB Q48 hours. Next dose on 04/30 . (first dose was given at [facility]). No other changes at this time. onver quique Transaction, Provider Unknown - 04/28/2016 12:14 PM PDT Progress Notes by Franco Cesar RPH at 04/28/161213 Author: Franco Cesar RPH Service: Pharmacy Author Type: Pharmacist Filed: 04/28/161213 Date of Service: 04/28/161213 Status: Signed Mine Utility Operator: Franco Cesar RPH (Pharmacist) >> FRANCO CESAR [...] | | | Fingerstick | performed at [facility] | | LAB | | | | [address];[place] | | | | | | [address] | | | | + + + [...] | | | Fingerstick | performed at [facility];[address] | | LAB | | | | [address];[place], [place] | | | | | | [address] | | | | + + + [...] | | | | | performed at [facility], [address] | | | | | | [address], | | | | | | [place] [address] | | | | + + + + + + | RED CELL | 4.04 (L)Comment: Testing | 4.20 - 5.70 | EXTERNAL | | | COUNT | performed at [facility], [address] | M/uL | LAB | | | | [address], | | | | | | [place] [address] | | | | + + + + + + | Hgb | 12.3 (L)Comment: Testing | 13.2 - 17.0 | EXTERNAL | | | | performed at [facility], [address] | g/dL | LAB | | | | [address], | | | | | | [place] [address] | | | | + + + + + + | Hematocrit, | 36.6 (L)Comment: Testing | 39.0 - 50.0 % | EXTERNAL | | | POC | performed at [facility], [address] | | LAB | | | | [address], | | | | | | [place] [address] | | | | + + + + + + | MCV | 90.6Comment: Testing | 80.0 - 100.0 fl | EXTERNAL | | | | performed at [facility], [address] | | LAB | | | | [address], | | | | | | [place] [address] | | | | + + + + + + | MCH | 30.5Comment: Testing | 27.0 - 34.0 pg | EXTERNAL | | | | performed at [facility], [address] | | LAB | | | | [address], | | | | | | [place] [address] | | | | + + + + + + | MCHC | 33.7Comment: Testing | 32.0 - 35.5 | EXTERNAL | | | | performed at [facility], [address] | g/dL | LAB | | | | [address], | | | | | | [place] [address] | | | | + + + + + + | RDW-CV | 53.8 (H)Comment: Testing | 37 - 53 fl | EXTERNAL | | | | performed at [facility], [address] | | LAB | | | | [address], | | | | | | [place] [address] | | | | + + + + + + | Platelet | 181Comment: Testing | 150 - 400 K/uL | EXTERNAL | | | Count | performed at [facility], [address] | | LAB | | | Plasma | [address], | | | | | | [place] [address] | | | | + + + + + + | MPV | 7.8Comment: Testing | fl | EXTERNAL | | | | performed at [facility], [address] | | LAB | | | | [address], | | | | | | [place] [address] | | | | + + + + + + | Differentia | AUTOMATEDComment: | | EXTERNAL | | | l Type | Testing performed at | | LAB | | | | [facility], [address] | | | | | | [place] | | | | | | [address] | | | | + + + + + + | % Segmented | 97.03Comment: Testing | % | EXTERNAL | | | | performed at [facility], [address] | | LAB | | | Neutrophils | [address], | | | | | | [place] [address] | | | | + + + + + + | % | 1.58Comment: Testing | % | EXTERNAL | | | Lymphocytes | performed at [facility], [address] | | LAB | | | | [address], | | | | | | [place], [place] [address] | | | | + + + + + + | % Monocytes | 1.34Comment: Testing | % | EXTERNAL | | | | performed at [facility], [address] | | LAB | | | | [address], | | | | | | [place], [place] [address] | | | | + + + + + + | % | 0.00Comment: Testing | % | EXTERNAL | | | Eosinophils | performed at [facility], [address] | | LAB | | | | [address], | | | | | | [place], [place] [address] | | | | + + + + + + | % Basophils | 0.05Comment: Testing | % | EXTERNAL | | | | performed at [facility], [address] | | LAB | | | | [address], | | | | | | [place] [address] | | | | + + + + + + | Absolute | 30.78 (H)Comment: | 1.90 - 7.40 | EXTERNAL | | | Segmented | Testing performed at | K/uL | LAB | | | Neutrophils | [facility], [address] | | | | | | [place] | | | | | | [address] | | | | + + + + + + | Absolute | 0.50 (L)Comment: Testing | 1.00 - 3.90 | EXTERNAL | | | Lymphocytes | performed at [facility], [address] | K/uL | LAB | | | | [address], | | | | | | [place] [address] | | | | + + + + + + | Absolute | 0.43Comment: Testing | 0.00 - 0.80 | EXTERNAL | | | Monocytes | performed at [facility], [address] | K/uL | LAB | | | | [address], | | | | | | [place] [address] | | | | + + + + + + | Absolute | 0.00Comment: Testing | 0.00 - 0.50 | EXTERNAL | | | Eosinophils | performed at [facility], [address] | K/uL | LAB | | | | [address], | | | | | | [place] [address] | | | | + + + + + + | Absolute | 0.02Comment: Testing | 0.00 - 0.10 | EXTERNAL | | | Basophils | performed at [facility], [address] | K/uL | LAB | | | | [address], | | | | | | [place] [address] | | | | + + + [...] | | | | | [place] [address] | | | | + + + + + + | Differentia | SLIDE SCANNED, AGREES | | EXTERNAL | | | l Comments | WITH AUTOMATED | | LAB | | | | RESULTS.Comment: Testing | | | | | | performed at [facility], [address] | | | | | | [address], | | | | | | [place] [address] | | | | + + + [...] EXTERNAL | | | | performed at [facility], [address] | | LAB | | | | [address], | | | | | | [place] [address] | | | | + + + [...] | | | | | [place] [address] | | | | + + + [...] | | | | | [place] [address] | | | | + + + + + + | K | 4.7Comment: Testing | 3.5 - 4.9 | EXTERNAL | | | | performed at [facility], [address] | mmol/L | LAB | | | | [address], | | | | | | [place] [address] | | | | + + + + + + | Cl | 96 (L)Comment: Testing | 99 - 109 mmol/L | EXTERNAL | | | | performed at [facility], [address] | | LAB | | | | [address], | | | | | | [place] [address] | | | | + + + + + + | CO2 | 22 (L)Comment: Testing | 23 - 32 mmol/L | EXTERNAL | | | | performed at [facility], [address] | | LAB | | | | [address], | | | | | | [place] [address] | | | | + + + + + + | Anion Gap | 21 (H)Comment: Testing | 5 - 20 mmol/L | EXTERNAL | | | | performed at [facility], [address] | | LAB | | | | [address], | | | | | | [place] [address] | | | | + + + + + + | Glucose, | 248 (H)Comment: Testing | 65 - 99 mg/dL | EXTERNAL | | | Fasting | performed at [facility], [address] | | LAB | | | | [address], | | | | | | [place] [address] | | | | + + + + + + | BUN | 74 (H)Comment: Testing | 8 - 25 mg/dL | EXTERNAL | | | | performed at [facility], [address] | | LAB | | | | [address], | | | | | | [place] [address] | | | | + + + + + + | Creatinine | 8.5 (H)Comment: Testing | 0.70 - 1.30 | EXTERNAL | | | | performed at [facility], [address] | mg/dL | LAB | | | | [address], | | | | | | [place] [address] | | | | + + + + + + | BUN/Creatin | 9Comment: Testing | | EXTERNAL | | | ine Ratio | performed at [facility], [address] | | LAB | | | | [address], | | | | | | [place] [address] | | | | + + + + + + | Calcium | 7.8 (L)Comment: Testing | 8.5 - 10.5 | EXTERNAL | | | | performed at [facility], [address] | mg/dL | LAB | | | | [address], | | | | | | [place] [address] | | | | + + + [...] | | | | | | at [facility], [address] | | | | | | [facility], | | | | | | [place] [address] | | | | + + + [...] | | | Fingerstick | performed at [facility];[address] | | LAB | | | | [address];[place], [place] | | | | | | [address] | | | | + + + [...] | | | Fingerstick | performed at [facility] | | LAB | | | | [address];[place] | | | | | | [address] | | | | + + + [...] EXTERNAL | | | | performed at [facility];[address] | mmol/L | LAB | | | | [address];[place], [place] | | | | | | [address] | | | | + + + [...] EXTERNAL | | | | performed at [facility] | | LAB | | | | [address];[place] | | | | | | [address] | | | | + + + [...] EXTERNAL | | | | performed at [facility];[address] | | LAB | | | | [address];[place], [place] | | | | | | [address] | | | | + + + [...] | | | Fingerstick | performed at [facility];[address] | | LAB | | | | [address];[place] | | | | | | [address] | | | | + + + [...] | | | Fingerstick | performed at [facility];[address] | | LAB | | | | [address];[place] | | | | | | [address] | | | | + + + [...] | | | | | performed at [facility];[address] | | | | | | [facility];[place], [place] | | | | | | [address] | | | | + + + [...] | | | | | performed at [facility] | | | | | | [address];[place] | | | | | | [address] | | | | + + + + + + | RED CELL | 4.18 (L)Comment: Testing | 4.20 - 5.70 | EXTERNAL | | | COUNT | performed at [facility];[address] | M/uL | LAB | | | | [address];[place] | | | | | | [address] | | | | + + + + + + | Hgb | 12.3 (L)Comment: Testing | 13.2 - 17.0 | EXTERNAL | | | | performed at [facility];[address] | g/dL | LAB | | | | [address];[place] | | | | | | [address] | | | | + + + + + + | Hematocrit, | 37.9 (L)Comment: Testing | 39.0 - 50.0 % | EXTERNAL | | | POC | performed at [facility];[address] | | LAB | | | | [address];[place] | | | | | | [address] | | | | + + + + + + | MCV | 90.8Comment: Testing | 80.0 - 100.0 fl | EXTERNAL | | | | performed at [facility];[address] | | LAB | | | | [address];[place] | | | | | | [address] | | | | + + + + + + | MCH | 29.5Comment: Testing | 27.0 - 34.0 pg | EXTERNAL | | | | performed at [facility];[address] | | LAB | | | | [address];[place] | | | | | | [address] | | | | + + + + + + | MCHC | 32.4Comment: Testing | 32.0 - 35.5 | EXTERNAL | | | | performed at [facility];[address] | g/dL | LAB | | | | [address];[place] | | | | | | [address] | | | | + + + + + + | RDW-CV | 53.8 (H)Comment: Testing | 37 - 53 fl | EXTERNAL | | | | performed at [facility];[address] | | LAB | | | | [address];[place] | | | | | | [address] | | | | + + + + + + | Platelet | 188Comment: Testing | 150 - 400 K/uL | EXTERNAL | | | Count | performed at [facility];[address] | | LAB | | | Plasma | [address];[place] | | | | | | [address] | | | | + + + + + + | MPV | 7.7Comment: Testing | fl | EXTERNAL | | | | performed at [facility];[address] | | LAB | | | | [address];[place] | | | | | | [address] | | | | + + + + + + | Differentia | MANUALComment: Testing | | EXTERNAL | | | l Type | performed at [facility];[address] | | LAB | | | | [address];[place] | | | | | | [address] | | | | + + + + + + | Segmented | 88Comment: Testing | % | EXTERNAL | | | Neutrophils | performed at [facility];[address] | | LAB | | | Manual | [address];[place] | | | | | | [address] | | | | + + + + + + | % Bands | 10Comment: Testing | % | EXTERNAL | | | | performed at [facility];[address] | | LAB | | | | [address];[place] | | | | | | [address] | | | | + + + + + + | Lymphocytes | 1Comment: Testing | % | EXTERNAL | | | Manual | performed at [facility];[address] | | LAB | | | | [address];[place] | | | | | | [address] | | | | + + + + + + | Monocytes | 1Comment: Testing | % | EXTERNAL | | | Manual | performed at [facility];[address] | | LAB | | | | [address];[place] | | | | | | [address] | | | | + + + + + + | Absolute | 33.11 (H)Comment: | 1.90 - 7.40 | EXTERNAL | | | Neutrophils | Testing performed at | K/uL | LAB | | | | [facility];[address];[place] [address] | | | | + + + + + + | Bands | 3.76 (H)Comment: Testing | 0.00 - 0.20 | EXTERNAL | | | Manual | performed at [facility];8 | K/uL | LAB | | | | [address];[place] | | | | | | [address] | | | | + + + + + + | Absolute | 0.38 (L)Comment: Testing | 1.00 - 3.90 | EXTERNAL | | | Lymphocytes | performed at [facility] [place] | K/uL | LAB | | | | [address];[place] | | | | | | [address] | | | | + + + + + + | Absolute | 0.38Comment: Testing | 0.00 - 0.80 | EXTERNAL | | | Monocytes | performed at [facility] [place] | K/uL | LAB | | | | [address];[place] | | | | | | [address] | | | | + + + + + + | RBC | NORMAL PLT MORPHComment: | | EXTERNAL | | | Morphology | 1+ANISOTesting | | LAB | | | | performed at [facility] [place];[address] | | | | | | [address];[place] | | | | | | [address] | | | | | | | [...] | | | Fingerstick | performed at [facility] [place];[address] | | LAB | | | | [address];[place] | | | | | | [address] | | | | + + + [...] | | | | | | [place] [address] | | | | + + + + + + | T3, Total | 40 (L)Comment: Testing | 80 - 200 ng/dL | EXTERNAL | | | | performed at [facility], [address] | | LAB | | | | Katrina Castaneda | | | | | | [place] [address] | | | | + + + [...] | | | | | performed at [facility], [address] | | | | | | [place], | | | | | | [place] [address] | | | | + + + + + + | RED CELL | 4.32Comment: Testing | 4.20 - 5.70 | EXTERNAL | | | COUNT | performed at [facility], [address] | M/uL | LAB | | | | [address], | | | | | | [place] [address] | | | | + + + + + + | Hgb | 12.9 (L)Comment: Testing | 13.2 - 17.0 | EXTERNAL | | | | performed at [facility], [address] | g/dL | LAB | | | | [address], | | | | | | [place] [address] | | | | + + + + + + | Hematocrit, | 40.3Comment: Testing | 39.0 - 50.0 % | EXTERNAL | | | POC | performed at [facility], [address] | | LAB | | | | [address], | | | | | | [place] [address] | | | | + + + + + + | MCV | 93.2Comment: Testing | 80.0 - 100.0 fl | EXTERNAL | | | | performed at [facility], [address] | | LAB | | | | [address], | | | | | | [place] [address] | | | | + + + + + + | MCH | 29.8Comment: Testing | 27.0 - 34.0 pg | EXTERNAL | | | | performed at [facility], [address] | | LAB | | | | [address], | | | | | | [place] [address] | | | | + + + + + + | MCHC | 32.0Comment: Testing | 32.0 - 35.5 | EXTERNAL | | | | performed at [facility], [address] | g/dL | LAB | | | | [address], | | | | | | [place] [address] | | | | + + + + + + | RDW-CV | 55.6 (H)Comment: Testing | 37 - 53 fl | EXTERNAL | | | | performed at [facility], [address] | | LAB | | | | [address], | | | | | | [place], [place] [address] | | | | + + + + + + | Platelet | 182Comment: Testing | 150 - 400 K/uL | EXTERNAL | | | Count | performed at [facility], [address] | | LAB | | | Plasma | [address], | | | | | | [place], [place] [address] | | | | + + + + + + | MPV | 8.0Comment: Testing | fl | EXTERNAL | | | | performed at [facility], [address] | | LAB | | | | [address], | | | | | | [place], [place] [address] | | | | + + + + + + | Differentia | MANUALComment: Testing | | EXTERNAL | | | l Type | performed at [facility], [address] | | LAB | | | | [address], | | | | | | [place], [place] [address] | | | | + + + + + + | Segmented | 90Comment: Testing | % | EXTERNAL | | | Neutrophils | performed at [facility], [address] | | LAB | | | Manual | [address], | | | | | | [place] [address] | | | | + + + + + + | % Bands | 6Comment: Testing | % | EXTERNAL | | | | performed at [facility], [address] | | LAB | | | | [address], | | | | | | [place] [address] | | | | + + + + + + | Lymphocytes | 2Comment: Testing | % | EXTERNAL | | | Manual | performed at [facility], [address] | | LAB | | | | [address], | | | | | | [place] [address] | | | | + + + + + + | Monocytes | 2Comment: Testing | % | EXTERNAL | | | Manual | performed at [facility], [address] | | LAB | | | | [place], | | | | | | [place] [address] | | | | + + + + + + | Absolute | 36.66 (H)Comment: | 1.90 - 7.40 | EXTERNAL | | | Neutrophils | Testing performed at | K/uL | LAB | | | | [facility], [address] [facility] | | | | | | [place] | | | | | | [address] | | | | + + + + + + | Bands | 2.44 (H)Comment: Testing | 0.00 - 0.20 | EXTERNAL | | | Manual | performed at [facility], [address] | K/uL | LAB | | | | [address], | | | | | | [place] [address] | | | | + + + + + + | Absolute | 0.81 (L)Comment: Testing | 1.00 - 3.90 | EXTERNAL | | | Lymphocytes | performed at [facility], [address] | K/uL | LAB | | | | [address], | | | | | | [place] [address] | | | | + + + + + + | Absolute | 0.81 (H)Comment: Testing | 0.00 - 0.80 | EXTERNAL | | | Monocytes | performed at [facility], [address] | K/uL | LAB | | | | [address], | | | | | | [place] [address] | | | | + + + + + + | RBC | 1+Comment: ANISONORMAL | | EXTERNAL | | | Morphology | PLT MORPHTesting | | LAB | | | | performed at [facility], [address] | | | | | | [address], | | | | | | [place] [address] | | | | | | | [...] | | | | | [place] [address] | | | | + + + [...] | | | (REF) | performed at [facility], [address] | | LAB | | | | [place], | | | | | | [place] [address] | | | | + + + [...] EXTERNAL | | | | performed at [facility], [address] | | LAB | | | | [place], | | | | | | [place] [address] | | | | + + + [...] | | | | | [place] [address] | | | | + + [...] | EXTERNAL | | | A1c | Lao Diabetes | | LAB | | | [...] | | | | | performed at [facility], [address] | | | | | | [address] | | | | | | [place] [address] | | | | + + + [...] | | | | | performed at [facility], [address] | | | | | | [place] | | | | | | [place] [address] | | | | + + + [...] | | | | | [place] [address] | | | | + + + + + + | K | 5.2 (H)Comment: SPECIMEN | 3.5 - 4.9 | EXTERNAL | | | | NOT HEMOLYZEDTesting | mmol/L | LAB | | | | performed at [facility], [address] | | | | | | [address], | | | | | | [place] [address] | | | | + + + + + + | Cl | 101Comment: Testing | 99 - 109 mmol/L | EXTERNAL | | | | performed at [facility], [address] | | LAB | | | | [address], | | | | | | [place] [address] | | | | + + + + + + | CO2 | 23Comment: Testing | 23 - 32 mmol/L | EXTERNAL | | | | performed at [facility], [address] | | LAB | | | | [address], | | | | | | [place] [address] | | | | + + + + + + | Anion Gap | 20Comment: Testing | 5 - 20 mmol/L | EXTERNAL | | | | performed at [facility], [address] | | LAB | | | | [address], | | | | | | [place] [address] | | | | + + + + + + | Glucose, | 194 (H)Comment: Testing | 65 - 99 mg/dL | EXTERNAL | | | Fasting | performed at [facility], [address] | | LAB | | | | [address], | | | | | | [place] [address] | | | | + + + + + + | BUN | 40 (H)Comment: Testing | 8 - 25 mg/dL | EXTERNAL | | | | performed at [facility], [address] | | LAB | | | | [address], | | | | | | [place] [address] | | | | + + + + + + | Creatinine | 7.5 (H)Comment: Testing | 0.70 - 1.30 | EXTERNAL | | | | performed at [facility], [address] | mg/dL | LAB | | | | [address], | | | | | | [place] [address] | | | | + + + + + + | BUN/Creatin | 5Comment: Testing | | EXTERNAL | | | ine Ratio | performed at [facility], [address] | | LAB | | | | [address], | | | | | | [place] [address] | | | | + + + + + + | Calcium | 7.8 (L)Comment: Testing | 8.5 - 10.5 | EXTERNAL | | | | performed at [facility], [address] | mg/dL | LAB | | | | [address], | | | | | | [place] [address] | | | | + + + [...] | | | | | | at [facility], [address] | | | | | | [place], | | | | | | [place] [address] | | | | + + + [...] | | | Fingerstick | performed at [facility] [place] | | LAB | | | | [address];[place] | | | | | | [address] | | | | + + + [...] EXTERNAL | | | | performed at [facility] [place];[address] | mmol/L | LAB | | | | [address];[place] | | | | | | [address] | | | | + + + [...] | | | Fingerstick | performed at [facility] [place];[address] | | LAB | | | | [address];[place], [place] | | | | | | [address] | | | | + + + [...] | | | Fingerstick | performed at [facility] [place];[facility] | | LAB | | | | [address];[place] | | | | | | [address] | | | | + + + [...] EXTERNAL | | | | performed at [facility] [place];[address] | mmol/L | LAB | | | | [address];[place], [place] | | | | | | [address] | | | | + + + [...] EXTERNAL | | | | performed at [facility] [place];[address] | mmol/L | LAB | | | | [address];[place], [place] | | | | | | [address] | | | | + + + [...] | | REQUESTS S GRAM DONE AT [facility] GRAM STAIN | | | GREATER [...] [place] | | | | | | [address] | | | | + + + [...] | | | Alcohol | performed at [facility] [place];[address] | | LAB | | | | [address];[place], [place] | | | | | | [address] | | | | + + + [...] | EXTERNAL LAB | | performed at [facility] [place];[address] [place] [address];[place] [address] CORRECTED ON 04/30 | | | AT 1403: PREVIOUSLY REPORTED NO GROWTH VIRAL CULT DFA STAIN | | | ACCESSION NO. | | | [id number] SPECIMEN SOURCE | | | NASOPHARYNGEAL DFA | | | SPECIMEN CONTAINED TOO FEW CELLS FOR | | | EVALUATION BY DIRECT FLUORESCENT | | | ANTIBODY STAIN. RESULT | | | PRELIMINARY: NO VIRUS ISOLATED AT 7 | | | DAYS. | | | FINAL: NO VIRUS ISOLATED AT 14 DAYS. | | | Testing performed at [facility], [address] [place] [address] | | | REPORT STATUS REPORT STATUS | | | FINAL 05/14/2016 Testing performed at [facility], [address] | | | [facility] [address] | | + + + + +---------+ [...] | performed by [facility] Testing performed at [facility] [place] [place];[address] [facility];[place], [place] | | | [address] INFLUENZA B NEGATIVE | | | Testing performed by [facility] Testing performed at [facility] [place];[address];[place] [address] | | + + + + +---------+ [...] EXTERNAL LAB | | Testing performed at [facility] [place];[address] [place] [address];[place] [address] MRSA PCR | | | NEGATIVE Testing performed at | | | [address];[place] [address] | | + + + + +---------+ [...]
--- OUTSIDE RECORDS SUMMARY | ~2019-05-20 | XMS | Encounter Summary ---
Demographics + + + | Address | [address] | | | [place] [address] | + + + | Home Phone [...] Team Providers + +------+ + | Care Logging Equipment Mechanic Name | Role | Phone | + +------+ + PCP | Unavailable | + +------+ + Encounter Details +--------+ + + + + | Date | Type | Department | Care Team | Description | +--------+ + + + + | 04/30/ | Hospital | [facility] | Al Coon DO | GI bleeding; | | 2011 - | Encounter | [facility] | [address] | Diabetes mellitus | | | | CARE FLOOR [address] | [address] | with ESRD (end-stage | | 05/02/ | | [address] | [place] [address] | renal disease) | | 2011 | | [place], [place] | [phone] | (HCC); GI bleed; | | | | [address] | | Hypoalbuminemia; | | | | [phone] | | Hypokalemia; | | | | [...] 05/02/121111 Date of Service: 05/02/121106 Status: Signed Therapy Administrative Assistant: Johnathon Colbert MD (Physician) [facility] Service: Hospitalist Physician Discharge Summary Pt: Enrique Potter AGE/SEX: 47 y.o. male ROOM: [facility]4448-1 PCP: [facility] : 1965 Admit date: 04/30/2012 Discharge date [...] worsened each time, so he presented at [facility] in [place], [place], where he continued to have GI bleeding and was transferred to [facility] for GI and ESRD support. Patient was [...] on Coumadin. INR last nig ht at [facility] found to be 3.9 . In [...] Qty: 17 Doses, Refills: 0 ergocalciferol (DRISDOL) 56065 UNITS capsule Take 1 capsule by mouth [...] PCP 1 week Signed: [facility]02/2012 11:07 AM documented in this [...] Date of Service: 05/02/12 1500 Status: Signed Therapy Administrative Assistant: Janene Robbins RN (Registered Nurse) Pt discharged from hospital with self care.discharge paperwork,prescription and instruction s given.Pt verbalizes understanding and has no further questions. Sean Willis T - 05/02/2012 11:20 AM PSTFormatting of this note might be different from the origi nal. Progress Notes by Sean Reid MD at 05/02/121119 Author: Sean Reid MD Service: Nephrology Author Type: Physician Filed: 05/02/12 1128 Date of Service: 05/02/121119 Status: Signed Therapy Administrative Assistant: Sean Reid MD (Physician) [facility] Service: NEPHROLOGY Progress Note Enrique Potter 47 y.o. [id number] male [facility] Hospital Day: LOS: 2 days SUBJECTIVE Patient seen and examined. On HD GI Bleeding, Blood in stool HISTORY OF PRESENT ILLNESS The patient is a 47 y.o. male who presents with GI bleed, started yesterday, had several bl oody bowel movements last night which worsened each time, so he presented at [facility] in [place], [place], where he continued to have GI bleeding and was transferred to [facility] for GI and ESRD support. Patient was recently hospitalized at [facility], admitted 04/02/12, and diagnosed with MSSA bacte remia and ARF requiring HD. Patient had L PICC line, later removed, and permacath placed, an d HD started with Dr Cook cut lace machine operator. ID Dr Ford was also consulted. He is being treated w ith Vancomycin IV on HD days (MWF). After discharge, patient had US for vein mapping and was found to have upper extremity and IJ DVT's as shown in US report below, and patient was sta rted on Coumadin. INR last night at [facility] found to be 3.9 . In ED here the patient has been ordered to receive 2 PRBC's, 1 FFP, and IV protonix.,Jen gee been consulted. Nephrology consulted for evaluation and management of ESRD AND MAINTENANCE HD --- UNDER DR ASHFORD AT [place] [facility] GI BLEEDING, SEVERE Associated with fluid electrolyte acid base imbalances HAPPILY FOR 22 YEARS, LIVES in [place] AT HOME WITH , [employer]; RICKISUZULEMA MPLOYED BEFORE WORKED AT [employer] IN [place]/ [employer]SE SMOKE NONE ETOH QUIT 15 YEARS [...] W/ EGD; Surgeon: John Singleton MD; Location: [facility] ENDOSCOPY; rvice: Gastroenterology; Laterality: N/A; History Social [...] WITH [employer]; KIDSUNEMPLOYED BEFORE WORKED AT [employer] IN [place] NONE ETOH QUIT 15 YEARS AGODRUGS: USES [...] system. The possibi lity of "sound alike" geographic information system analyst errors, addition and/or deletions may occur. If there is any question about this report please contact the originating radiologist. Electronically s igned by Mark Stark MD on 04/24/2012 12:28 PM CASE: [id number] PATIENT: ENRIQUE POTTER Surgical Pathology Report PATHOLOGIC DIAGNOSIS: KIDNEY, NEEDLE CORE BIOPSY: - SEVERE NODULAR AND GLOBAL GLOMERULOSCLEROSIS CONSISTENT WITH DIABETIC NEPHROPATHY. - HYPERTENSIVE VASCULAR CHANGES. - SEVERE TUBULAR ATROPHY AND INTERSTITIAL FIBROSIS. COMMENT: Dr. Cook has been phoned with this preliminary diagnosis on April 11, 2012. TECHNICAL NOTE: This case was seen and processed at [facility] in [place], [place]. (Report #: [id number]). AMW:clarisa CLINICAL HISTORY: 04/10/2012. (R) renal bx [...] DIABETES AND HYPERTENSIVE NEPHROSCLEROSIS ON HD AT [facility] HD UNIT UNDER DR COOK ALL WORK UP FOR VASCULITIS NEGATIVE LAST ADM C3, C4 levels wnl, hep b/c NR, RF NEG, KAPPA/LAMBDA RATIO WNL, HIV NR RASHID/LAMBDA RATIO 1.89 ANCA, ANTI GBM neg RENAL BX : renal bx 04/10/2012 SHOWED ESRD WITH LOTS OF SCARRING ,He is s/p diagnostic [facility] biopsy which shows advanced fibrotic changes [...] without HEPARIN PT TO CONT HD AT [facility] HD UNDER DR COOK Time spend over [...] 05/02/12928 Date of Service: 05/02/12927 Status: Signed Therapy Administrative Assistant: Jose Rafael Cesar RPH (Pharmacist) Vancomycin update- [...] Date of Service: 11/08/12 1055 Status: Signed Therapy Administrative Assistant: Jose Rafael Cesar RPH (Pharmacist) HD today, will receive vancomycin 750mg after HD Sean Willis T - 05/01/2012 10:52 AM PSTFormatting of this note might be different from the origi nal. Progress Notes by Sean Reid MD at 05/01/12 1052 Author: Sean Reid MD Service: Nephrology Author Type: Physician Filed: 05/01/12 1110 Date of Service: 05/01/12 1052 Status: Signed Therapy Administrative Assistant: Sean Reid MD (Physician) [facility] Service: NEPHROLOGY Progress Note Enrique Potter 47 y.o. [id number] male [facility] Hospital Day: LOS: 1 day SUBJECTIVE Patient seen and examined. GI Bleeding, Blood in stool HISTORY OF PRESENT ILLNESS The patient is a 47 y.o. male who presents with GI bleed, started yesterday, had several bl oody bowel movements last night which worsened each time, so he presented at [facility] in [place], [place], where he continued to have GI bleeding and was transferred to [facility] for GI and ESRD support. Patient was recently hospitalized at [facility], admitted 04/02/12, and diagnosed with MSSA bacte remia and ARF requiring HD. Patient had L PICC line, later removed, and permacath placed, an d HD started with Dr Cook cut lace machine operator. ID Dr Ford was also consulted. He is being treated w ith Vancomycin IV on HD days (MWF). After discharge, patient had US for vein mapping and was found to have upper extremity and IJ DVT's as shown in US report below, and patient was sta rted on Coumadin. INR last night at [facility] found to be 3.9 . In ED here the patient has been ordered to receive 2 PRBC's, 1 FFP, and IV protonix.,Jen gee been consulted. Nephrology consulted for evaluation and management of ESRD AND MAINTENANCE HD -M-W- UNDER DR ASHFORD AT [place] [facility] ACUTE GI BLEEDING, SEVERE Associated with fluid electrolyte acid base imbalances HAPPILY FOR 22 YEARS, LIVES in [place] AT HOME WITH , [employer]; KIDSUNE MPLOYED BEFORE WORKED AT [employer] IN [place] COURSE SMOKE NONE ETOH QUIT 15 YEARS [...] WITH [employer]; KIDSUNEMPLOYED BEFORE WORKED AT [employer] IN [place] N[place] ETOH QUIT 15 YEARS AGODRUGS: USES [...] eport please contact the originating radiologist. : [id number] PATIENT: ENRIQUE POTTER Surgical Pathology Report PATHOLOGIC DIAGNOSIS: KIDNEY, NEEDLE CORE BIOPSY: - SEVERE NODULAR AND GLOBAL GLOMERULOSCLEROSIS CONSISTENT WITH DIABETIC NEPHROPATHY. - HYPERTENSIVE VASCULAR CHANGES. - SEVERE TUBULAR ATROPHY AND INTERSTITIAL FIBROSIS. COMMENT: Dr. Cook has been phoned with this preliminary diagnosis on April 11, 2012. TECHNICAL NOTE: This case was seen and processed at [facility] in [place], [place]. (Report #: [id number]). AMW:clarisa CLINICAL HISTORY: 04/10/2012. (R) renal bx [...] AND HYPERTENSIVE NEPHROSCLEROSIS ON HD -- AT [facility] HD UNIT UNDER DR COOK ALL WORK [...] Notes by Favio Dawkins MD at 05/01/12 0369 Author: Favio Dawkins MD Service: Hospitalist Author Type: Physician Filed: 05/01/12 3813 Date of Service: 05/01/12751 Status: Addendum Therapy Administrative Assistant: Favio Dawkins MD (Physician) Related Notes: Original Note by Favio Dawkins MD (Physician) filed at 05/01/12 1604 [facility] Service: Hospitalist Progress Note Hospital Day: LOS: 1 day Post-Op Day: * No surgery date entered * SUBJECTIVE Patient Summary: The patient is a 47 y.o. male who presents with GI bleed, started yes terday, had several bloody bowel movements last night which worsened each time, so he presen gela at [facility] in [place], [place], where he continued to have GI bleeding and wa s transferred to [facility] for GI and ESRD support. Patient was recently hospitalized at [facility], admitted 04/02/12, and diagnosed with MSSA bacte remia and ARF requiring HD. Patient had L PICC line, later removed, and permacath placed, an d HD started with Dr Cook cut lace machine operator. ID Dr Ford was also consulted. He is being treated w ith Vancomycin IV on HD days (MWF). After discharge, patient had US for vein mapping and was found to have upper extremity and IJ DVT's as shown in US report below, and patient was sta rted on Coumadin. INR last night at [facility] found to be 3.9 . In [...] at bedside as well as Computerized Physician Assistant Family Teacher. Disposition: Home Code Status: Full Code Favio Dawkins MD 05/01/2012 onversion Transaction, Provider Unknown - 04/30/2012 3:22 PM PSTFormatting of this note might be diff erent from the original. Progress Notes by Jose Rafael Cesar RPH at 04/30/12 1522 Author: Jose Rafael Cesar RPH Service: (none) Author Type: Pharmacist Filed: 04/30/121521 Date of Service: 04/30/121521 Status: Signed Therapy Administrative Assistant: Jose Rafael Cesar RPH (Pharmacist) Vancomycin note- [...] Date of Service: 04/30/12 1038 Status: Signed Therapy Administrative Assistant: Kelley Toussaint RPH (Pharmacist) Renal Dosing Monitoring: [...] stage renal disease) on dialysis ([facility]) End stage renal disease | + + | Acute posthemorrhagic anemia | + + | DVT (deep venous thrombosis) ([facility]) Acute venous embolism and thrombosis of | [...]
--- OUTSIDE RECORDS SUMMARY | ~2019-05-20 | XMS | Encounter Summary ---
Demographics + + + | Address | [address] | | | [place] [address] | + + + | Home Phone [...] Team Providers + +------+ + | Care Gas Well Drilling Manager Name | Role | Phone | + +------+ + PCP | Unavailable | + +------+ + Encounter Details +--------+ + + + + | Date | Type | Department | Care Team | Description | +--------+ + + + + | 09/07/ | Hospital | [facility] | Artis Dean MD | ESRD (end stage | | 2017 - | Encounter | [facility] | [address] [place] | renal disease) on | | | | CARE FLOOR 4 [address] | [address] [place], [place] | dialysis ([facility]); S/P | | 09/15/ | | [address] | [address] | pericardiocentesis; | | 2017 | | [place], [place] | | Hyperkalemia; | | | | [address] | | End-stage renal | | | | [phone] | | disease (ESRD) | | | | | | ([facility]); Arteriovenous | | | | | | fistula occlusion, | | | | | | initial encounter | | | | | | ([facility]); Anemia, | | | | | | [...] Discharge Summaries by DAMIÁN KuR1 at 09/15/16 1501 Author: ESPERANZA Ku Service: Hospitalist Author Type: Resident-Y1 Filed: 09/15/16 1513 Date of Service: 09/15/16 1508 Status: Attested Construction Scheduler: ESPERANZA Ku (Resident-Y1) Cosigner: Simone Roblero MD at 09/17/16 1 338 Attestation signed by Simone Roblero MD at 09/17/16 7879 I have seen and examined the patient and agree with residents note [facility] Service: Hospitalist Discharge Summary Date of Admission: 09/07/2016 Date of Discharge: Discharge Provider: DAMIÁN KuR1/Dr. Roblero Treatment Team: Consulting Physician: Cosmo Soria [...] II, and hypothyroidism who pres ented to [facility] with hyperkalemia 2/2 missing dialysis appointments [...] on file. Follow [place]: [place] [address] [place] [address] Go on 09/18/2016 Hospital Follow Up at 2:15pm Guided Patient Services Guided Patient Services [employer]- HARDIK Ayala [phone] Mon-Fri 7:30 AM 4:00 PM Call for any questions or concerns after your discharge home, or for help making follow up appointments. Beny Posada MD [address] [place] [address] In 2 weeks for hospital follow up [...] Note by Ophelia See RN at 09/15/16 9264 Author: Ophelia See RN Service: (none) Author Type: Registered Nurse Filed: 09/15/16 1531 Date of Service: 09/15/16 1516 Status: Signed Construction Scheduler: Ophelia See RN (Registered Nurse) Patient leaving via private vehicle for home self care. All belongings with patient and spo use. Script given for oxycodone. Patient states understanding of all follow up appointments. koum, Juana Smallwood MD - 09/15/2016 11:10 AM PDTFormatting of this note might be different from th e original. Progress Notes by Juana Christianson MD at 09/15/16 1110 Author: Juana Christianson MD Service: Nephrology Author Type: Physician Filed: 09/21/16 9200 Date of Service: 09/15/16 1110 Status: Signed Construction Scheduler: Juana Christianson MD (Physician) [facility] Service: Nephrology Progress Note Hospital Problem List: Principal Problem: Pericardial effusion with cardiac tamponade Active Problems: Secondary renal hyperparathyroidism (HCC) 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) ESRD (end stage renal disease) on dialysis (HCC) Anemia of chronic kidney failure Hyponatremia Chronic systolic heart failure ([facility]) S/P pericardiocentesis The patient says that he [...] torsemide 50 mg Oral Daily vitamin B jusiudf-V-kkyyr acid 1 tablet Oral Daily dextrose P.E. [...] with his AV fistula Recommendations: No acute LINE SERVICE SUPERVISOR indication Remove CVC Protein suppl stressed I discussed with the primary team the case at the time of this encounter. JUANA CHRISTIANSON MD 09/15/2016 onversion Transa ction, Provider Unknown - 09/15/2016 4:18 AM PDT Nurse Progress Note by Yessica Bell RN at 09/15/16417 Author: Yessica Bell RN Service: (none) Author Type: Registered Nurse Filed: 09/15/16420 Date of Service: 09/15/16417 Status: Signed Construction Scheduler: Yessica Bell RN (Registered Nurse) Patient came [...] 09/14/161855 Date of Service: 09/14/161852 Status: Signed Construction Scheduler: Ophelia See RN (Registered Nurse) Patient has [...] 09/14/161701 Date of Service: 09/14/161700 Status: Signed Construction Scheduler: Marge Lewis RD, JAYA (Registered Dietitian) 09/14/161649 Subjective Timepoint Admit Pt c/o Pt triggered for stay secondary to LOS. Admitted secondary to swollen fistula, no H D for five days. New fistula placed, pt sleeping and undergoing HD at time of visit. Did n ot awaken patient. Reported by RN Diet Experience Previous Diet / Nutrition Education / Counseling Pt receives HD in [facility], followed by r juan francisco dietitian there. Food Intake Amount of Food [...] 09/14/161699 Date of Service: 09/14/161658 Status: Signed Construction Scheduler: Lola Farfan RN (Registered Nurse) Discharge Planning: CM attended morning rounds with nursing staff, pt to d/c home with spou se, does not qualify for , pt not home bound koum, Juana Smallwood MD - 09/14/2016 8:48 AM PDTFormatting of this note might be different from th e original. Progress Notes by Juana Christianson MD at 09/14/16847 Author: Juana Christianson MD Service: Nephrology Author Type: Physician Filed: 09/14/162050 Date of Service: 09/14/16847 Status: Signed Construction Scheduler: Juana Christianson MD (Physician) [facility] Service: Nephrology Progress Note Hospital Problem List: [...] torsemide 50 mg Oral Daily vitamin B zywjtdw-R-cxxsz acid 1 tablet Oral Daily dextrose P.E. [...] STATUS: Relative euvolemia Recommendations: 1. He needs LINE SERVICE SUPERVISOR today 2. No IVF need 3. Advise [...] Service: Hospitalist Author Type: Resident-Y1 Filed: 09/14/16 7779 Date of Service: 09/14/16626 Status: Attested Construction Scheduler: Douglas Barrow MD-R1 (Resident-Y1) Cosigner: Simone Roblero MD at 09/15/16 1 424 Attestation signed by Simone Roblero MD at 09/15/16 6118 I have seen and examined the patient and agree with residents of note. Pericardial drain is out. HD was performed using fistula. No complication PROGRESS NOTE 09/14/2016 for Carol Potter on the hospitalist service. 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 There was concern that he had central occlusion of the SVC, which did not axle turner to be the case. Patient underwen t [...] DM II, and hypothyroidism who presented to [facility] with hyperkalemia 2/2 missing dialysis appointments as his AVF was not functioning. SUBJECTIVE IV infiltrated, new one placed in forehead. OBJECTIVE Temp: [97.6 F (36.4 C)-98.8 F (37.1 C)] 98.6 F (37 C) (09/14 329) BP: (99-122)/(55-76) 108/63 mmHg (09/14 0330) Heart Rate: [75-91] 77 (09/14 329) Resp: [...] torsemide 50 mg Oral Daily vitamin B bgpmybf-A-hwpuy acid 1 tablet Oral Daily dextrose PRN: acetaminophen OR acetaminophen, albumin human, dextrose, dextrose, dextrose, diphenhydr AMINE, glucagon, glucagon, ondansetron OR ondansetron, oxyCODONE OR oxyCODONE, polye thylene glycol, sodium chloride, sodium chloride, sodium chloride Douglas Barrow MD PGY1 09/14/2016 6:29 AM Ana Strange DO, have reviewed this note. onversion Transac tion, Provider Unknown - 09/13/2016 11:27 PM PDTFormatting of this note might be different f rom the original. Nurse Progress Note by Ksenia Lopez RN at 09/13/162326 Author: Ksenia Lopez RN Service: (none) Author Type: Registered Nurse Filed: 09/13/16 9392 Date of Service: 09/13/162326 Status: Signed Construction Scheduler: Ksenia Lopez RN (Registered Nurse) Both peripheral [...] 09/13/161929 Date of Service: 09/13/161753 Status: Addendum Construction Scheduler: Flory Razo MD (Physician) Related Notes: Original Note by Flory Razo MD (Physician) filed at 09/13/161803 [facility] Service: Cardiology Progress Note Hospital Day: LOS: [...] torsemide 50 mg Oral Daily vitamin B jbiqkiy-K-mxbtk acid 1 tablet Oral Daily Continuous Infusions [...] Notes by Cosmo Soria MD at 09/13/16 2890 Author: Cosmo Soria MD Service: Nephrology Author Type: Physician Filed: 09/13/16 1606 Date of Service: 09/13/16 8220 Status: Signed Construction Scheduler: Cosmo Soria MD (Physician) 4461/4461-1 LOS: 6 [...] Nephrology consultation wa s requested by Dr. Baird for urgent dialysis given missed dialysis and hyperkalemia with EKG changes. He indicated feeling OK without any nausea, vomiting, chest pain, shortness of breath, leg swelling. He indicated having had some urine output today. Dr. Meyer was apparently contacted by Dr. Baird and plan was possible declotting. ICU was [...] is dialyzed Saturday an d Saturday at [place] dialysis unit using right UE AVF (Dr. [...] was completed later after rounds. Dictation software, EyeJot, was used which may contain error for [...] torsemide 50 mg Oral Daily vitamin B hznrxbn-Y-vzvsl acid [address] Christianson will assume nephrology service as of 8 am tomorrow. onversion Transactio n, Provider Unknown - 09/13/2016 1:43 PM PDT Case Management by Lola Farfan RN at 09/13/16 1343 Author: Lola Farfan RN Service: (none) Author Type: Registered Nurse Filed: 09/13/16 1347 Date of Service: 09/13/16 134 Status: Signed Construction Scheduler: Lola Farfan RN (Registered Nurse) Discharge Planning: CM attended morning rounds with nursing staff, pt to d/c poss 09/15 home with spouse. CM sent FWW script to DME, FWW to be delivered to pt room 09/14. alvor Douglas sifuentes - 09/13/2016 6:35 AM PDTFormatting of this note might be different from the betina ginal. Progress Notes by Douglas Barrow MD-R1 at 09/13/16 0617 Author: Douglas Barrow MD-R1 Service: Hospitalist Author Type: Resident-Y1 Filed: 09/13/16 4084 Date of Service: 09/13/16 0635 Status: Attested Construction Scheduler: Douglas Barrow MD-R1 (Resident-Y1) Cosigner: Simone Roblero MD at 09/13/16 1 337 Attestation signed by Simone Roblero MD at 09/13/16 4868 I have seen and examined the patient [...] occlusion of the SVC, which did not axle turner to be the case. Patient underwen t [...] DM II, and hypothyroidism who presented to [facility] with hyperkalemia 2/2 missing dialysis appointments as his AVF was not functioning. SUBJECTIVE Patient had pain overnight, otherwise he has no CP, no N/V, OBJECTIVE Temp: [97.2 F (36.2 C)-98.3 F (36.8 C)] 98.3 F (36.8 C) (09/13 1141) BP: (85-125)/(48-60) 114/60 mmHg (09/13 1141) Heart Rate: [79-88] 81 (09/13 114) Resp: [...] torsemide 50 mg Oral Daily vitamin B ysfbmhm-V-zvfii acid 1 tablet Oral Daily PRN: acetaminophen [...] Service: (none) Author Type: Registered Nurse Filed: 09/13/16537 Date of Service: 09/13/16517 Status: Addendum Construction Scheduler: Ofelia Morales RN (Registered Nurse) Related Notes: [...] Notes by Flory Razo MD at 09/12/16 7980 Author: Flory Razo MD Service: Cardiology Author Type: Physician Filed: 09/12/16 1632 Date of Service: 09/12/16 1530 Status: Signed Construction Scheduler: Flory Razo MD (Physician) [facility] Service: Cardiology Progress Note Hospital Day: LOS: [...] torsemide 50 mg Oral Daily vitamin B tntlwlh-T-hncrt acid 1 tablet Oral Daily Continuous Infusions [...] - - - - - - 09/11/16 2030 152/67 mmHg - - - - - [...] Status: Full Code Flory Razo MD 09/12/2016 Precious, Mary tinoco MD - 09/12/2016 9:00 AM PDT . Progress Notes by Cosmo Soria MD at 09/12/16 09 Author: Cosmo Soria MD Service: Nephrology Author Type: Physician Filed: 09/12/16 2876 Date of Service: 09/12/16899 Status: Signed Construction Scheduler: Cosmo Soria MD (Physician) 4461/4461-1 LOS: 5 [...] Nephrology consultation wa s requested by Dr. Baird for urgent dialysis given missed dialysis and hyperkalemia with EKG changes. He indicated feeling OK without any nausea, vomiting, chest pain, shortness of breath, leg swelling. He indicated having had some urine output today. Dr. Meyer was apparently contacted by Dr. Baird and plan was possible declotting. ICU was [...] He is dialyzed Saturday an saturday at [place] dialysis unit using right UE AVF (Dr. [...] was completed later after rounds. Dictation software, EyeJot, was used which may contain error for [...] torsemide 50 mg Oral Daily vitamin B wdkclei-F-ctqfb acid 1 tablet Oral Daily Douglas Bess 0 09/12/2016 6:42 AM PDT Progress Notes by Douglas Barrow MD-R1 at 09/12/16 0642 Author: Douglas Barrow MD-R1 Service: Hospitalist Author Type: Resident-Y1 Filed: 09/12/16 1217 Date of Service: 09/12/16 0642 Status: Attested Construction Scheduler: Douglas Barrow MD-R1 (Resident-Y1) Cosigner: Simone Roblero [...] DM II, and hypothyroidism who presented to [facility] with hyperkalemia 2/2 missing dialysis appointments as his AVF was not functioning. SUBJECTIVE Patient was having dialysis this AM, he was doing well, no complaints OBJECTIVE Temp: [97.8 F (36.6 C)-100 F (37.8 C)] 98.2 F (36.8 C) (09/12 112) BP: (81-181)/(49-95) 147/69 mmHg (09/12 1145) Heart Rate: [52-103] 84 (09/12 1145) Resp: [12-189] 18 (09/12 112) SpO2: [91 %-100 %] [...] torsemide 50 mg Oral Daily vitamin B nympclk-W-dgavl acid 1 tablet Oral Daily PRN: acetaminophen OR acetaminophen, albumin human, diphenhydrAMINE, HYDROmorphone OR HY DROmorphone, ondansetron OR ondansetron, polyethylene glycol, sodium chloride, sodium ch loride, sodium chloride Douglas Barrwo MD PGY1 09/12/2016 12:17 PM I Michael Strange DO, have reviewed this note. Cosmo Lang MD - 09/11/2016 4:16 PM PDT Progress Notes by Cosmo Soria MD at 09/11/16 1616 Author: Cosmo Soria MD Service: Nephrology Author Type: Physician Filed: 09/11/16 1703 Date of Service: 09/11/166 Status: Signed Construction Scheduler: Cosmo Soria MD (Physician) 7106/7106-1 LOS: 4 [...] Nephrology consultation wa s requested by Dr. Baird for urgent dialysis given missed dialysis and hyperkalemia with EKG changes. He indicated feeling OK without any nausea, vomiting, chest pain, shortness of breath, leg swelling. He indicated having had some urine output today. Dr. Meyer was apparently contacted by Dr. Baird and plan was possible declotting. ICU was [...] and had t o be replaced by press clipper. He has been wheezing which is improved [...] is dialyzed Saturday an d Saturday at [place] dialysis unit using right UE AVF (Dr. [...] was completed later after rounds. Dictation software, EyeJot, was used which may contain error for [...] torsemide 50 mg Oral Daily vitamin B hbviduc-O-esgwu acid 1 tablet Oral Daily onversion Transactio n, Provider Unknown - 09/11/2016 2:43 PM PDT Case Management by Deidre Westfall RN at 09/11/16 7632 Author: Deidre Westfall RN Service: (none) Author Type: Registered Nurse Filed: 09/11/16 5541 Date of Service: 09/11/164 Status: Addendum Construction Scheduler: Deidre Westfall RN (Registered Nurse) Related Notes: Original Note by Deidre Westfall RN (Registered Nurse) filed at 09/11/16 144 6 Met with pt and spouse Shyanne re d/c planning. Pt states he would like a FWW. Will obtain sc ript and fax to [employer]. Shyanne asking about a phone card and meal vouchers. Shyanne states she already used up the [employer] ne card calling her kids in [place]. Informed Shyanne not sure how many phone cards they can get during stay, but stated family in [place] can call in to pt's room. Informed Shyanne coles gets 1 meal voucher/day, she already used up todays. Shyanne states she will be driving pt home at d/c. Mitzi onver quiuqe Transaction, Provider Unknown - 09/11/2016 12:10 PM PDT Nurse Progress Note by Sharon Chapman RN at 09/11/16 1210 Author: Sharon Chapman RN Service: Nephrology Author Type: Registered Nurse Filed: 09/11/16 1238 Date of Service: 09/11/16 1210 Status: Signed Construction Scheduler: Sharon Chapman RN (Registered Nurse) Contacted by [...] (none) Author Type: Registered Nurse Filed: 09/11/16 1928 Date of Service: 09/11/16 1202 Status: Addendum Construction Scheduler: Amber Freitas RN (Registered Nurse) Related Notes: Original Note by Amber Freitas RN (Registered Nurse) filed at 09/11/16 1811 Dressing removed on accident by patient when ambulating to bathroom, RN dressed with gauze and tegaderm, head chef contacted and will be to floor to inspect, clean and re-dress, pt complaining of increased pain to R arm where AVF is located, arm is swollen and warm to touc h, does not appear to have changed from previous assessment MD aware Amber Freitas RN alnohemi Douglas sifuentes Vance - 09/11/2016 6:35 AM PDTFormatting of this note might be different from the betina ginal. Progress Notes by DAMIÁN KuR1 at 09/11/16 0635 Author: DAMIÁN KuR1 Service: Hospitalist Author Type: Resident-Y1 Filed: 09/11/16 3005 Date of Service: 09/11/16 0635 Status: Attested Construction Scheduler: DAMIÁN KuR1 (Resident-Y1) Cosigner: Simone Roblero MD [...] DM II, and hypothyroidism who presented to [facility] with hyperkalemia 2/2 missing dialysis appointments [...] torsemide 50 mg Oral Daily vitamin B gsncfbr-A-tfjee acid 1 tablet Oral Daily PRN: acetaminophen [...] 09/11/16620 Date of Service: 09/11/16619 Status: Signed Construction Scheduler: Carmina Lepe RN (Registered Nurse) Pt VS stable throughout the shift. No acute changes noted. Pt NPO at midnight. Will continu e to monitor. Carmina Lepe RN onver quique Transaction, Provider Unknown - 09/10/2016 6:09 PM PDT Progress Notes by Camilo Samson RN at 09/10/161808 Author: Camilo Samson RN Service: (none) Author Type: Registered Nurse Filed: 09/10/161809 Date of Service: 09/10/161808 Status: Signed Construction Scheduler: Camilo Samson RN (Registered Nurse) No acute changes. Camilo Samson RN Onelia Cuello ae, MD - 09/10/2016 4:56 PM PDTFormatting of this note might be different from the origin al. Progress Notes by Oskar Meyer MD at 09/10/16 1656 Author: Oskar Meyer MD Service: Vascular Surgery Author Type: Physician Filed: 09/10/16 1659 Date of Service: 09/10/16 1656 Status: Addendum Construction Scheduler: Oskar Meyer MD (Physician) Related Notes: Original Note by Oskar Meyer MD (Physician) filed at 09/10/16 1658 [facility] Service: Vascular Surgery Progress Note S/p right [...] Mary Loja CMA Service: (none) Author Type: Rural Route Carrier Filed: 09/10/16 1542 Date of Service: 09/10/16 1528 Status: Signed Construction Scheduler: Mary Loja CMA (Rural Route Carrier) GPS- Patient enrolled and appt scheduled with PCP on 09/18 ustyn Douglas sifuentes - 09/10/2016 1:12 PM PDTFormatting of this note might be different from the betina dasia. Progress Notes by Douglas Barrow MD-R1 at 09/10/16 1312 Author: Douglas Barrow MD-R1 Service: Hospitalist Author Type: Resident-Y1 Filed: 09/10/16 1325 Date of Service: 09/10/16 1312 Status: Attested Construction Scheduler: Douglas Barrow MD-R1 (Resident-Y1) Cosigner: Simone Roblero MD at 09/10/16 1 347 Attestation signed by Simone Roblero MD at 09/10/16 2738 I have seen and examined the patient [...] DM II, and hypothyroidism who presented to [facility] with hyperkalemia 2/2 missing dialysis appointments as his AVF was not functioning. SUBJECTIVE Patient was receiving dialysis this AM. He was doing well. He had no complaints. He had no SOB, no CP. OBJECTIVE Temp: [98.3 F (36.8 C)-99.1 F (37.3 C)] 99.1 F (37.3 C) (09/10 1130) BP: (103-178)/(53-77) 146/64 mmHg (09/10 1130) Heart Rate: [80-92] 89 (09/10 113) Resp: [18-20] 18 (09/10 113) SpO2: [94 %-100 %] 95 % (09/10 113) Weight: [82.1 kg (181 lb)-86 kg (189 [...] torsemide 50 mg Oral Daily vitamin B lndyhhs-R-vkcpl acid 1 tablet Oral Daily PRN: acetaminophen [...] Nurse Filed: 09/10/16 1241 Date of Service: 09/10/161236 Status: Signed Construction Scheduler: Sharon Chapman RN (Registered Nurse) @1157 Accompanied [...] Service: Nephrology Author Type: Registered Nurse Filed: 09/10/167 Date of Service: 09/10/16 1230 Status: Signed Construction Scheduler: Paulyn Ungerecht, RN (Registered Nurse) @9692 Lock HD ports with heparin 1000units/ml after [...] Date of Service: 09/10/16 1114 Status: Signed Construction Scheduler: Cosmo Soria MD (Physician) 7106/7106-1 LOS: 3 [...] Nephrology consultation wa s requested by Dr. Baird for urgent dialysis given missed dialysis and hyperkalemia with EKG changes. He indicated feeling OK without any nausea, vomiting, chest pain, shortness of breath, leg swelling. He indicated having had some urine output today. Dr. Meyer was apparently contacted by Dr. Baird and plan was possible declotting. ICU was [...] is dialyzed Saturday an d Saturday at [place] dialysis unit using right UE AVF (Dr. [...] was completed later after rounds. Dictation software, EyeJot, was used which may contain error for [...] torsemide 50 mg Oral Daily vitamin B xaoowfh-L-sfane acid 1 tablet Oral Daily onversion Transactio n, Provider Unknown - 09/10/2016 9:51 AM PDT Nurse Progress Note by Yahaira Roth RN at 09/10/16950 Author: Yahaira Roth RN Service: (none) Author Type: Registered Nurse Filed: 09/10/16953 Date of Service: 09/10/16950 Status: Signed Construction Scheduler: Yahaira Roth RN (Registered Nurse) Spoke to [...] 09/10/16820 Date of Service: 09/10/16819 Status: Signed Construction Scheduler: Camilo Samson RN (Registered Nurse) AM meds held until dialysis complete. Camilo Samson RN onver quique Transaction, Provider Unknown - 09/10/2016 4:13 AM PDT Nurse Progress Note by Carmina Lepe RN at 09/10/16412 Author: Carmina Lepe RN Service: (none) Author Type: Registered Nurse Filed: 09/10/168 Date of Service: 09/10/16412 Status: Signed Construction Scheduler: Carmina Lepe RN (Registered Nurse) Pt VS [...] 0758 Date of Service: 09/09/161941 Status: Signed Construction Scheduler: Cosmo Soria MD (Physician) 7106/7106-1 LOS: 2 [...] Nephrology consultation wa s requested by Dr. Baird for urgent dialysis given missed dialysis and hyperkalemia with EKG changes. He indicated feeling OK without any nausea, vomiting, chest pain, shortness of breath, leg swelling. He indicated having had some urine output today. Dr. Meyer was apparently contacted by Dr. Baird and plan was possible declotting. ICU was [...] is dialyzed Saturday an d Saturday at [place] dialysis unit using right UE AVF (Dr. [...] was completed later after rounds. Dictation software, EyeJot, was used which may contain error for [...] chloride 10 mL Intravenous Q8H vitamin B hrsnebk-A-fvtfk acid 1 tablet Oral Daily onversion Transactio n, Provider Unknown - 09/09/2016 6:02 PM PDT Nurse Progress Note by Angeli Espinal RN at 09/09/161801 Author: Angeli Espinal RN Service: (none) Author Type: Registered Nurse Filed: 09/09/161804 Date of Service: 03/19/17 1802 Status: Signed Construction Scheduler: Angeli Espinal RN (Registered Nurse) Pt had new dialysis line placed today in R groin. It appears to have some drainage around t he site. Called head chef and was advised as long as not [...] Notes by Simone Roblero MD at 09/09/16 8658 Author: Simone Roblero MD Service: Hospitalist Author Type: Physician Filed: 09/09/16 1508 Date of Service: 09/09/16 1886 Status: Signed Construction Scheduler: Simone Roblero MD (Physician) [facility] Service: Hospitalist Progress Note Hospital Day: LOS: [...] chloride 10 mL Intravenous Q8H vitamin B jzlzabr-S-dvjvr acid 1 tablet Oral Daily Continuous Infusions [...] hours. No results for input(s): PHART, PO2ART, YLO1SJU, L8QPNKGJ, BEART in the last 168 hours. Recent Labs Lab 09/07/162022 INR 0.9 No results for input(s): TSH, T3FREE, FREET4 in the last 168 hours. Recent Labs Lab 09/08/16 0534 CKTOTAL 177 Radiology Xr Chest 1 View 09/08/2016 Normal single view chest. RADIA Electronically signed by Kevin Ely MD on Sep 08 2016 1:06AM Referring Provider Line: [phone] ID: [id number] PROBLEM LIST Principal Problem: Acute [...] 09/09/16554 Date of Service: 09/09/16554 Status: Signed Construction Scheduler: Elsie Dickinson RN (Registered Nurse) No acute change in Pt condition from previous shift assessment. Elsie Dickinson RN Cosmo Lang MD - 09/08/2016 8:00 PM PDTFormatting of this note might be different from the or iginal. Progress Notes by Cosmo Soria MD at 09/08/161999 Author: Cosmo Soria MD Service: Nephrology Author Type: Physician Filed: 09/09/16 0906 Date of Service: 09/08/161999 Status: Signed Construction Scheduler: Cosmo Soria MD (Physician) 7106/7106-1 LOS: 1 [...] Nephrology consultation wa s requested by Dr. Baird for urgent dialysis given missed dialysis and hyperkalemia with EKG changes. He indicated feeling OK without any nausea, vomiting, chest pain, shortness of breath, leg swelling. He indicated having had some urine output today. Dr. Meyer was apparently contacted by Dr. Baird and plan was possible declotting. ICU was [...] is dialyzed Saturday an d Saturday at [facility] using right UE AVF (Dr. [...] was completed later after rounds. Dictation software, EyeJot, was used which may contain error for [...] chloride 10 mL Intravenous Q8H vitamin B rgajuqt-Y-catsb acid 1 tablet Oral Daily onversion Transactio n, Provider Unknown - 09/08/2016 5:31 PM PDT Nurse Progress Note by Angeli Espinal RN at 09/08/16 1731 Author: Angeli Espinal RN Service: (none) Author Type: Registered Nurse Filed: 09/08/16 1900 Date of Service: 09/08/16 1731 Status: Addendum Construction Scheduler: Angeli Espinal RN (Registered Nurse) Related Notes: [...] Date of Service: 09/08/16 1451 Status: Signed Construction Scheduler: Simone Roblero MD (Physician) Related Notes: Original Note by Simone Roblero MD (Physician) filed at 09/08/16 1457 [facility] Service: Hospitalist Progress Note Hospital Day: LOS: [...] chloride 10 mL Intravenous Q8H vitamin B wuahugh-X-ydnjx acid 1 tablet Oral Daily Continuous Infusions [...] hours. No results for input(s): PHART, PO2ART, JMB8TBH, E6NGOCXJ, BEART in the last 168 hours. Recent Labs Lab 09/07/162022 INR 0.9 No results for input(s): TSH, T3FREE, FREET4 in the last 168 hours. Recent Labs Lab 09/08/16 0534 CKTOTAL 177 Radiology Xr Chest 1 View 09/08/2016 Normal single view chest. RADIA Electronically signed by Kevin Ely MD on Sep 08 2016 1:06AM Referring Provider Line: [phone] ID: [id number] PROBLEM LIST Principal Problem: Acute [...] Case Management by VANDANA Olivia at 09/08/16 4665 Author: VANDANA Olivia Service: (none) Author Type: Printing Press Machine Operator Filed: 09/08/16 1139 Date of Service: 09/08/168 Status: Signed Construction Scheduler: VANDANA Olivia (Printing Press Machine Operator) 09/08/16 3307 Discharge Planning Evaluation Admitting Diagnosis ESRD Readmission No Living Arrangements Spouse/significant other (Shyanne Potter) Support Systems Spouse/significant other;Family members (Momo Potter, Son: [phone]) Type of Residence Private residence Independent with ADL's Yes Independent with Mobility Yes Home Care Services No Caregiver after Discharge Yes Caregiver Name Shyanne Potter Relationship to Patient Spouse Phone number No Phone Mental Status Oriented Power of Cell Attendant No Anticipated Discharge Plan Post Acute [...] has dialysis at [facility] in [facility]. His Sister transports him to dialysis. Pt denied any discharge n eeds. Pt's Spouse stated that they are very low income and that they used all of their money gett ing to the hospital. She requested a meal voucher as she does not have money to purchase fo od and they live in [facility]. CM provided a sack lunch [...] concerns: No concerns Medication coverage/concerns: No concerns [facility] Bedside Delivery: Community resources utilized / needed: None Assistance in transportation: Family Identification of any specific education / training: None Barriers to Discharge / Alternative housing needed: None Anticipated DCP: Home with Spouse MESSI GUPTA OConver quique [place], Provider Unknown - 09/08/2016 7:25 AM PDT Progress Notes by Elsie Dickinson RN at 09/08/16724 Author: Elsie Dickinson RN Service: (none) Author Type: Registered Nurse Filed: 09/08/1629 Date of Service: 09/08/16724 Status: Signed Construction Scheduler: Elsie Dickinson RN (Registered Nurse) Pt received hemodialysis upon admission to the floor, 2 liters off. Elsie Dickinson RN onver quique Transaction, Provider Unknown - 09/08/2016 3:24 AM PDT Pharmacy Note by Carmina Lara RPH at 09/08/16323 Author: Carmina Lara RPH Service: Pharmacy Author Type: Pharmacist Filed: 09/08/16323 Date of Service: 09/08/16323 Status: Signed Construction Scheduler: Carmina Lara RPH (Pharmacist) Clinical Pharmacy Note: Renal Monitoring Height: 170.2 cm Weight: 81.7 kg Patient is on hemodialysis. Pharmacy dosing for renal function per Dr. Dean Currently, there are no medications needing to be adjusted. Pharmacy will continue to monit or for changes in medication orders and adjust accordingly per protocol. Carmina Lara PharmD 09/08/2016 3:23 AM docume nted in this encounter Plan [...] | | | Fingerstick | performed at [facility];[address] | | LAB | | | | [address];[place], [place] | | | | | | [address] | | | | + + + [...] | | | Fingerstick | performed at [facility];[address] | | LAB | | | | [address];[place] | | | | | | [address] | | | | + + + + + + + + | Specimen | + + | | + + + +---------+ + + | Performing | Address | City/State/Zipcode | Phone Number | | Organization | | | | + +---------+ + + | EXTERNAL LAB | | | | + +---------+ + + External Lab: [facility] (09/15/2016 5:26 AM PDT) + + + + + + | Component | Value | Ref Range | Performed | Pathologist | | | | | At | Signature | + + + + + + | WBC | 10.76Comment: Testing | 3.80 - 11.00 | EXTERNAL | | | | performed at [facility], [address] | K/uL | LAB | | | | [address], | | | | | | [place] [address] | | | | + + + + + + | RED CELL | 2.86 (L)Comment: Testing | 4.20 - 5.70 | EXTERNAL | | | COUNT | performed at [facility], [address] | [address] | LAB | | | | [address], | | | | | | [place] [address] | | | | + + + + + + | Hgb | 8.7 (L)Comment: Testing | 13.2 - 17.0 | EXTERNAL | | | | performed at [facility], [address] | g/dL | LAB | | | | [address], | | | | | | [place] [address] | | | | + + + + + + | Hematocrit, | 25.9 (L)Comment: Testing | 39.0 - 50.0 % | EXTERNAL | | | POC | performed at [facility], [address] | | LAB | | | | [address], | | | | | | [place] [address] | | | | + + + + + + | MCV | 90.4Comment: Testing | 80.0 - 100.0 fl | EXTERNAL | | | | performed at [facility], [address] | | LAB | | | | [address], | | | | | | [place] [address] | | | | + + + + + + | MCH | 30.5Comment: Testing | 27.0 - 34.0 pg | EXTERNAL | | | | performed at [facility], [address] | | LAB | | | | [address], | | | | | | [place] [address] | | | | + + + + + + | MCHC | 33.7Comment: Testing | 32.0 - 35.5 | EXTERNAL | | | | performed at [facility], [address] | g/dL | LAB | | | | [address], | | | | | | [place] [address] | | | | + + + + + + | RDW-CV | 54.3 (H)Comment: Testing | 37 - 53 fl | EXTERNAL | | | | performed at [facility], [address] | | LAB | | | | [address], | | | | | | [place] [address] | | | | + + + + + + | Platelet | 279Comment: Testing | 150 - 400 K/uL | EXTERNAL | | | Count | performed at [facility], [address] | | LAB | | | Plasma | [address], | | | | | | [place] [address] | | | | + + + + + + | MPV | 7.1Comment: Testing | fl | EXTERNAL | | | | performed at [facility], [address] | | LAB | | | | [address], | | | | | | [place] [address] | | | | + + + + + + | Differentia | AUTOMATEDComment: | | EXTERNAL | | | l Type | Testing performed at | | LAB | | | | [facility], [address] | | | | | | [place] | | | | | | [address] | | | | + + + + + + | % Segmented | 73.44Comment: Testing | % | EXTERNAL | | | | performed at [facility], [address] | | LAB | | | Neutrophils | [address], | | | | | | [place] [address] | | | | + + + + + + | % | 8.76Comment: Testing | % | EXTERNAL | | | Lymphocytes | performed at [facility], [address] | | LAB | | | | [address], | | | | | | [place] [address] | | | | + + + + + + | % Monocytes | 13.23Comment: Testing | % | EXTERNAL | | | | performed at [facility], [address] | | LAB | | | | [address], | | | | | | [place] [address] | | | | + + + + + + | % | 3.62Comment: Testing | % | EXTERNAL | | | Eosinophils | performed at [facility], [address] | | LAB | | | | [address], | | | | | | [place] [address] | | | | + + + + + + | % Basophils | 0.95Comment: Testing | % | EXTERNAL | | | | performed at [facility], [address] | | LAB | | | | [address], | | | | | | [place] [address] | | | | + + + + + + | Absolute | 7.90 (H)Comment: Testing | 1.90 - 7.40 | EXTERNAL | | | Segmented | performed at [facility], [address] | [address]/u[address] | LAB | | | Neutrophils | [address], | | | | | | [place] [address] | | | | + + + + + + | Absolute | 0.94 (L)Comment: Testing | 1.00 - 3.90 | EXTERNAL | | | Lymphocytes | performed at [facility], [address] | K/uL | LAB | | | | [address], | | | | | | [place] [address] | | | | + + + + + + | Absolute | 1.42 (H)Comment: Testing | 0.00 - 0.80 | EXTERNAL | | | Monocytes | performed at [facility], [address] | [address] | LAB | | | | [address], | | | | | | [place] [address] | | | | + + + + + + | Absolute | 0.39Comment: Testing | 0.00 - 0.50 | EXTERNAL | | | Eosinophils | performed at [facility], [address] | K/uL | LAB | | | | [address], | | | | | | [place] [address] | | | | + + + + + + | Absolute | 0.10Comment: Testing | 0.00 - 0.10 | EXTERNAL | | | Basophils | performed at [facility], [address] | K/uL | LAB | | | | [address], | | | | | | [place] [address] | | | | + + + [...] | performed at [facility], [address] | | LAB | | | | [address], | | | | | | [place] [address] | | | | + + + [...] | performed at [facility], [address] | | LAB | | | | [address], | | | | | | [place] [address] | | | | + + + [...] | performed at [facility], [address] | | LAB | | | | [address], | | | | | | [place] [address] | | | | + + + [...] | performed at [facility], [address] | mmol/L | LAB | | | | [address], | | | | | | [place] [address] | | | | + + + + + + | K | 4.6Comment: Testing | 3.5 - 4.9 | EXTERNAL | | | | performed at [facility], [address] | mmol/L | LAB | | | | [address], | | | | | | [place] [address] | | | | + + + + + + | Cl | 97 (L)Comment: Testing | 99 - 109 mmol/L | EXTERNAL | | | | performed at [facility], [address] | | LAB | | | | [address], | | | | | | [place] [address] | | | | + + + + + + | CO2 | 28Comment: Testing | 23 - 32 mmol/L | EXTERNAL | | | | performed at [facility], [address] | | LAB | | | | [address], | | | | | | [place] [address] | | | | + + + + + + | Anion Gap | 14Comment: Testing | 5 - 20 mmol/L | EXTERNAL | | | | performed at [facility], [address] | | LAB | | | | [address], | | | | | | [place] [address] | | | | + + + + + + | Glucose, | 126 (H)Comment: Testing | 65 - 99 mg/dL | EXTERNAL | | | Fasting | performed at [facility], [address] | | LAB | | | | [address], | | | | | | [place] [address] | | | | + + + + + + | BUN | 38 (H)Comment: Testing | 8 - 25 mg/dL | EXTERNAL | | | | performed at [facility], [address] | | LAB | | | | [address], | | | | | | [place] [address] | | | | + + + + + + | Creatinine | 6.0 (H)Comment: Testing | 0.70 - 1.30 | EXTERNAL | | | | performed at [facility], [address] | mg/dL | LAB | | | | [address], | | | | | | [place] [address] | | | | + + + + + + | BUN/Creatin | 6Comment: Testing | | EXTERNAL | | | ine Ratio | performed at [facility], [address] | | LAB | | | | [address], | | | | | | [place] [address] | | | | + + + + + + | Calcium | 8.4 (L)Comment: Testing | 8.5 - 10.5 | EXTERNAL | | | | performed at [facility], [address] | mg/dL | LAB | | | | [address], | | | | | | [place] [address] | | | | + + + [...] [address], | | | | | | [place] [address] | | | | + + + [...] | | | Fingerstick | performed at [facility];[address] | | LAB | | | | [address];[place], [place] | | | | | | [address] | | | | + + + [...] | | | Fingerstick | performed at [facility];[address] | | LAB | | | | [address];[place], [place] | | | | | | [address] | | | | + + + [...] | | | Fingerstick | performed at [facility];[address] | | LAB | | | | [address];[place] | | | | | | [address] | | | | + + + [...] Pleural effusion present. | | | MEASUREMENTS [employer]: SHIRA Authenticated by: | | | Flory Razo MD Report Date/Time: 09-14-2016 15:01:49 | | + + + + + | Procedure Note | + + | Khalif Palm Conversion - 02/04/2019 10:13 PM PDT Patient Name: Mohinder POTTER of | | : 1965 Performing Physician: Flory Razo | | INDICATIONS c | | jr FRAZIER 1. There is a trivial pericardial effusion | | present.2. Pleural effusion present. FINDINGS--------ECG rhythm: Sinus rhythm.Study: A | | limited 2-dimensional transthoracic echocardiogram with limited spectral and color flow | | Doppler was performed.Study: This was a technically adequate study.Pericardium: There is | | a trivial pericardial effusion present.Pericardium: Pleural effusion present. | | MEASUREMENTS Job Developer For [employer]: SHIRAAuthenticated by: Flory Razo MDRephca midwest division | | Date/Time: 09-14-2016 15:01:49 IMPRESSION: 1. [...] | |MEASUREMENTS | | | | | |Job Developer [employer]: SHIRA | |Authenticated by: Flory Razo MD [...] | performed at [facility], [address] | K/uL | LAB | | | | [address], | | | | | | [place] [address] | | | | + + + + + + | RED CELL | 2.87 (L)Comment: Testing | 4.20 - 5.70 | EXTERNAL | | | COUNT | performed at [facility], [address] | [address] | LAB | | | | [address], | | | | | | [place] [address] | | | | + + + + + + | Hgb | 8.6 (L)Comment: Testing | 13.2 - 17.0 | EXTERNAL | | | | performed at [facility], [address] | g/dL | LAB | | | | [address], | | | | | | [place] [address] | | | | + + + + + + | Hematocrit, | 25.8 (L)Comment: Testing | 39.0 - 50.0 % | EXTERNAL | | | POC | performed at [facility], [address] | | LAB | | | | [address], | | | | | | [place] [address] | | | | + + + + + + | MCV | 90.0Comment: Testing | 80.0 - 100.0 fl | EXTERNAL | | | | performed at [facility], [address] | | LAB | | | | [address], | | | | | | [place] [address] | | | | + + + + + + | MCH | 29.9Comment: Testing | 27.0 - 34.0 pg | EXTERNAL | | | | performed at [facility], [address] | | LAB | | | | [address], | | | | | | [place] [address] | | | | + + + + + + | MCHC | 33.3Comment: Testing | 32.0 - 35.5 | EXTERNAL | | | | performed at [facility], [address] | g/dL | LAB | | | | [address], | | | | | | [place] [address] | | | | + + + + + + | RDW-CV | 52.9Comment: Testing | 37 - 53 fl | EXTERNAL | | | | performed at [facility], [address] | | LAB | | | | [address], | | | | | | [place] [address] | | | | + + + + + + | Platelet | 245Comment: Testing | 150 - 400 K/uL | EXTERNAL | | | Count | performed at [facility], [address] | | LAB | | | Plasma | [address], | | | | | | [place] [address] | | | | + + + + + + | MPV | 7.1Comment: Testing | fl | EXTERNAL | | | | performed at [facility], [address] | | LAB | | | | [address], | | | | | | [place] [address] | | | | + + + + + + | Differentia | AUTOMATEDComment: | | EXTERNAL | | | l Type | Testing performed at | | LAB | | | | [facility], [address] | | | | | | [place] | | | | | | [address] | | | | + + + + + + | % Segmented | 73.70Comment: Testing | % | EXTERNAL | | | | performed at [facility], [address] | | LAB | | | Neutrophils | [address], | | | | | | [place] [address] | | | | + + + + + + | % | 7.56Comment: Testing | % | EXTERNAL | | | Lymphocytes | performed at [facility], [address] | | LAB | | | | [address], | | | | | | [place] [address] | | | | + + + + + + | % Monocytes | 14.10Comment: Testing | % | EXTERNAL | | | | performed at [facility], [address] | | LAB | | | | [address], | | | | | | [place] [address] | | | | + + + + + + | % | 4.10Comment: Testing | % | EXTERNAL | | | Eosinophils | performed at [facility], [address] | | LAB | | | | [address], | | | | | | [place] [address] | | | | + + + + + + | % Basophils | 0.54Comment: Testing | % | EXTERNAL | | | | performed at [facility], [address] | | LAB | | | | [address], | | | | | | [place] [address] | | | | + + + + + + | Absolute | 7.26Comment: Testing | 1.90 - 7.40 | EXTERNAL | | | Segmented | performed at [facility], [address] | K/uL | LAB | | | Neutrophils | [address], | | | | | | [place] [address] | | | | + + + + + + | Absolute | 0.74 (L)Comment: Testing | 1.00 - 3.90 | EXTERNAL | | | Lymphocytes | performed at [facility], [address] | [address] | LAB | | | | [address], | | | | | | [place] [address] | | | | + + + + + + | Absolute | 1.39 (H)Comment: Testing | 0.00 - 0.80 | EXTERNAL | | | Monocytes | performed at [facility], [address] | [address] | LAB | | | | [address], | | | | | | [place] [address] | | | | + + + + + + | Absolute | 0.40Comment: Testing | 0.00 - 0.50 | EXTERNAL | | | Eosinophils | performed at [facility], [address] | K/uL | LAB | | | | [address], | | | | | | [place] [address] | | | | + + + + + + | Absolute | 0.05Comment: Testing | 0.00 - 0.10 | EXTERNAL | | | Basophils | performed at [facility], [address] | K/uL | LAB | | | | [address], | | | | | | [place] [address] | | | | + + + [...] | | | | | [place] [address] | | | | + + + [...] | performed at [facility], [address] | | LAB | | | | [address], | | | | | | [place] [address] | | | | + + + [...] | performed at [facility], [address] | | LAB | | | | [address], | | | | | | [place] [address] | | | | + + + [...] | performed at [facility], [address] | mmol/L | LAB | | | | [address], | | | | | | [place] [address] | | | | + + + + + + | K | 4.6Comment: Testing | 3.5 - 4.9 | EXTERNAL | | | | performed at [facility], [address] | mmol/L | LAB | | | | [address], | | | | | | [place] [address] | | | | + + + + + + | Cl | 92 (L)Comment: Testing | 99 - 109 mmol/L | EXTERNAL | | | | performed at [facility], [address] | | LAB | | | | [address], | | | | | | [place] [address] | | | | + + + + + + | CO2 | 26Comment: Testing | 23 - 32 mmol/L | EXTERNAL | | | | performed at [facility], [address] | | LAB | | | | [address], | | | | | | [place] [address] | | | | + + + + + + | Anion Gap | 16Comment: Testing | 5 - 20 mmol/L | EXTERNAL | | | | performed at [facility], [address] | | LAB | | | | [address], | | | | | | [place] [address] | | | | + + + + + + | Glucose, | 123 (H)Comment: Testing | 65 - 99 mg/dL | EXTERNAL | | | Fasting | performed at [facility], [address] | | LAB | | | | [address], | | | | | | [place] [address] | | | | + + + + + + | BUN | 58 (H)Comment: Testing | 8 - 25 mg/dL | EXTERNAL | | | | performed at [facility], [address] | | LAB | | | | [address], | | | | | | [place] [address] | | | | + + + + + + | Creatinine | 9.4 (H)Comment: Testing | 0.70 - 1.30 | EXTERNAL | | | | performed at [facility], [address] | mg/dL | LAB | | | | [address], | | | | | | [place] [address] | | | | + + + + + + | BUN/Creatin | 6Comment: Testing | | EXTERNAL | | | ine Ratio | performed at [facility], [address] | | LAB | | | | [address], | | | | | | [place] [address] | | | | + + + + + + | Calcium | 8.3 (L)Comment: Testing | 8.5 - 10.5 | EXTERNAL | | | | performed at [facility], [address] | mg/dL | LAB | | | | [address], | | | | | | [place] [address] | | | | + + + [...] W | | | | | | [address], | | | | | | [place] [address] | | | | + + + [...] | | | Fingerstick | performed at [facility];[address] | | LAB | | | | [address];[place], [place] | | | | | | [address] | | | | + + + [...] | | | Fingerstick | performed at [facility];[address] | | LAB | | | | [address];[place] | | | | | | [address] | | | | + + + [...] | | | Fingerstick | performed at [facility];[address] | | LAB | | | | [address];[place], [place] | | | | | | [address] | | | | + + + [...] | | | Fingerstick | performed at [facility];[address] | | LAB | | | | [address];[place] | | | | | | [address] | | | | + + + [...] no pericardial effusion. MEASUREMENTS | | | [employer]: SHIRA Authenticated by: Flory Singh | | [...] | | is no pericardial effusion. MEASUREMENTS Job Developer [employer]: SHIRAAutaliceticated by: | | Flory Razo MDReport Date/Time: [...] | |MEASUREMENTS | | | | | |Job Developer [employer]: GD | |Authenticated by: Flory Razo MD [...] EXTERNAL | | | | performed at [facility];[address] | [address] | LAB | | | | [address];[place], [place] | | | | | | [address] | | | | + + + + + + | RED CELL | 2.89 (L)Comment: Testing | 4.20 - 5.70 | EXTERNAL | | | COUNT | performed at [facility];[address] | [address] | LAB | | | | [address];[place] | | | | | | [address] | | | | + + + + + + | Hgb | 9.0 (L)Comment: Testing | 13.2 - 17.0 | EXTERNAL | | | | performed at [facility];[address] | g/dL | LAB | | | | [address];[place] | | | | | | [address] | | | | + + + + + + | Hematocrit, | 25.8 (L)Comment: Testing | 39.0 - 50.0 % | EXTERNAL | | | POC | performed at [facility];[address] | | LAB | | | | [address];[place] | | | | | | [address] | | | | + + + + + + | MCV | 89.3Comment: Testing | 80.0 - 100.0 fl | EXTERNAL | | | | performed at [facility];[address] | | LAB | | | | [address];[place] | | | | | | [address] | | | | + + + + + + | MCH | 31.1Comment: Testing | 27.0 - 34.0 pg | EXTERNAL | | | | performed at [facility];[address] | | LAB | | | | [address];[place] | | | | | | [address] | | | | + + + + + + | MCHC | 34.9Comment: Testing | 32.0 - 35.5 | EXTERNAL | | | | performed at [facility];[address] | g/dL | LAB | | | | [address];[place] | | | | | | [address] | | | | + + + + + + | RDW-CV | 51.2Comment: Testing | 37 - 53 fl | EXTERNAL | | | | performed at [facility];[address] | | LAB | | | | [address];[place] | | | | | | [address] | | | | + + + + + + | Platelet | 230Comment: Testing | 150 - 400 K/uL | EXTERNAL | | | Count | performed at [facility];[address] | | LAB | | | Plasma | [address];[place] | | | | | | [address] | | | | + + + + + + | MPV | 6.5Comment: Testing | fl | EXTERNAL | | | | performed at [facility];[address] | | LAB | | | | [address];[place] | | | | | | [address] | | | | + + + + + + | Differentia | AUTOMATEDComment: | | EXTERNAL | | | l Type | Testing performed at | | LAB | | | | [facility];[address];[place] [address] | | | | + + + + + + | % Segmented | 72.42Comment: Testing | % | EXTERNAL | | | | performed at [facility];[address] | | LAB | | | Neutrophils | [address];[place] | | | | | | [address] | | | | + + + + + + | % | 7.78Comment: Testing | % | EXTERNAL | | | Lymphocytes | performed at [facility];[address] | | LAB | | | | [address];[place] | | | | | | [id number] | | | | + + + + + + | % Monocytes | 13.64Comment: Testing | % | EXTERNAL | | | | performed at [facility];[address] | | LAB | | | | [address];[place] | | | | | | [address] | | | | + + + + + + | % | 5.69Comment: Testing | % | EXTERNAL | | | Eosinophils | performed at [facility];[address] | | LAB | | | | [address];[place] | | | | | | [id number] | | | | + + + + + + | % Basophils | 0.47Comment: Testing | % | EXTERNAL | | | | performed at [facility];[address] | | LAB | | | | [address];[place] | | | | | | [address] | | | | + + + + + + | Absolute | 7.28Comment: Testing | 1.90 - 7.40 | EXTERNAL | | | Segmented | performed at [facility];888 | K/uL | LAB | | | Neutrophils | [address];[place] | | | | | | [address] | | | | + + + + + + | Absolute | 0.78 (L)Comment: Testing | 1.00 - 3.90 | EXTERNAL | | | Lymphocytes | performed at [facility];888 | K/uL | LAB | | | | [address];[place] | | | | | | [address] | | | | + + + + + + | Absolute | 1.37 (H)Comment: Testing | 0.00 - 0.80 | EXTERNAL | | | Monocytes | performed at [facility];888 | K/uL | LAB | | | | [address];[place] | | | | | | [address] | | | | + + + + + + | Absolute | 0.57 (H)Comment: Testing | 0.00 - 0.50 | EXTERNAL | | | Eosinophils | performed at [facility];888 | K/uL | LAB | | | | [address];[place] | | | | | | [address] | | | | + + + + + + | Absolute | 0.05Comment: Testing | 0.00 - 0.10 | EXTERNAL | | | Basophils | performed at [facility];888 | K/uL | LAB | | | | [address];[place] | | | | | | [address] | | | | + + + [...] EXTERNAL | | | | performed at [facility];[address] | | LAB | | | | [address];[place], [place] | | | | | | [address] | | | | + + + [...] EXTERNAL | | | | performed at [facility] | | LAB | | | | [address];[place], [place] | | | | | | [address] [...] + + | Hemoglobin | 6.0Comment: The Ethiopian | 4.0 - 6.0 % [...] | performed at [facility], [address] | | | | | | [address] [facility], | | | | | | [place] [address] | | | | + + + [...] | performed at [facility], [address] | | | | | | [facility], | | | | | | [place] [address] | | | | + + + [...] EXTERNAL | | | | performed at [facility];888 | mmol/L | LAB | | | | [address];[place] | | | | | | [address] | | | | + + + + + + | K | 4.1Comment: Testing | 3.5 - 4.9 | EXTERNAL | | | | performed at [facility];888 | mmol/L | LAB | | | | [address];[place] | | | | | | [address] | | | | + + + + + + | Cl | 93 (L)Comment: Testing | 99 - 109 mmol/L | EXTERNAL | | | | performed at [facility];[address] | | LAB | | | | [address];[place] | | | | | | [address] | | | | + + + + + + | CO2 | 25Comment: Testing | 23 - 32 mmol/L | EXTERNAL | | | | performed at [facility];[address] | | LAB | | | | [address];[place] | | | | | | [address] | | | | + + + + + + | Anion Gap | 17Comment: Testing | 5 - 20 mmol/L | EXTERNAL | | | | performed at [facility];[address] | | LAB | | | | [address];[place] | | | | | | [address] | | | | + + + + + + | Glucose, | 173 (H)Comment: Testing | 65 - 99 mg/dL | EXTERNAL | | | Fasting | performed at [facility];[address] | | LAB | | | | [address];[place] | | | | | | [address] | | | | + + + + + + | BUN | 40 (H)Comment: Testing | 8 - 25 mg/dL | EXTERNAL | | | | performed at [facility];[address] | | LAB | | | | [address];[place] | | | | | | [address] | | | | + + + + + + | Creatinine | 7.3 (H)Comment: Testing | 0.70 - 1.30 | EXTERNAL | | | | performed at [facility];888 | mg/dL | LAB | | | | [address];[place] | | | | | | [address] | | | | + + + + + + | Calcium | 7.6 (L)Comment: Testing | 8.5 - 10.5 | EXTERNAL | | | | performed at [facility];888 | mg/dL | LAB | | | | [address];[place] | | | | | | [address] | | | | + + + + + + | Albumin | 2.8 (L)Comment: Testing | 3.6 - 5.0 g/dL | EXTERNAL | | | | performed at [facility];[address] | | LAB | | | | [address];[place] | | | | | | [address] | | | | + + + + + + | PHOSPHORUS | 3.6Comment: Testing | 2.3 - 4.8 mg/dL | EXTERNAL | | | | performed at [facility];[address] | | LAB | | | | [address];[place] | | | | | | [address] | | | | + + + [...] | | | | | | at [facility];[address] [place] [address] | | | | | | [facility];[place] [address] | | | | + + + [...] K/uL | LAB | | | | [facility];[address];[place] [address] | | | | + + + + + + | RED CELL | 2.92 (L)Comment: Testing | 4.20 - 5.70 | EXTERNAL | | | COUNT | performed at [facility];888 | M/uL | LAB | | | | [address];[place] | | | | | | [address] | | | | + + + + + + | Hgb | 8.9 (L)Comment: Testing | 13.2 - 17.0 | EXTERNAL | | | | performed at [facility];888 | g/dL | LAB | | | | [address];[place] | | | | | | [address] | | | | + + + + + + | Hematocrit, | 26.2 (L)Comment: Testing | 39.0 - 50.0 % | EXTERNAL | | | POC | performed at [facility];[address] | | LAB | | | | [address];[place] | | | | | | [address] | | | | + + + + + + | MCV | 89.5Comment: Testing | 80.0 - 100.0 fl | EXTERNAL | | | | performed at [facility];[address] | | LAB | | | | [address];[place] | | | | | | [address] | | | | + + + + + + | MCH | 30.6Comment: Testing | 27.0 - 34.0 pg | EXTERNAL | | | | performed at [facility];[address] | | LAB | | | | [address];[place] | | | | | | [address] | | | | + + + + + + | MCHC | 34.1Comment: Testing | 32.0 - 35.5 | EXTERNAL | | | | performed at [facility];888 | g/dL | LAB | | | | [address];[place] | | | | | | [address] | | | | + + + + + + | RDW-CV | 51.2Comment: Testing | 37 - 53 fl | EXTERNAL | | | | performed at [facility];[address] | | LAB | | | | [address];[place] | | | | | | [address] | | | | + + + + + + | Platelet | 255Comment: Testing | 150 - 400 K/uL | EXTERNAL | | | Count | performed at [facility];888 | | LAB | | | Plasma | [address];[place] | | | | | | [address] | | | | + + + + + + | MPV | 6.5Comment: Testing | fl | EXTERNAL | | | | performed at [facility];[address] | | LAB | | | | [address];[place] | | | | | | [address] | | | | + + + + + + | Differentia | AUTOMATEDComment: | | EXTERNAL | | | l Type | Testing performed at | | LAB | | | | [facility];[address];[place] [address] | | | | + + + + + + | % Segmented | 82.52Comment: Testing | % | EXTERNAL | | | | performed at [facility];888 | | LAB | | | Neutrophils | [address];[place] | | | | | | [address] | | | | + + + + + + | % | 3.94Comment: Testing | % | EXTERNAL | | | Lymphocytes | performed at [facility];[address] | | LAB | | | | [address];[place] | | | | | | [address] | | | | + + + + + + | % Monocytes | 10.34Comment: Testing | % | EXTERNAL | | | | performed at [facility];[address] | | LAB | | | | [address];[place] | | | | | | [address] | | | | + + + + + + | % | 2.63Comment: Testing | % | EXTERNAL | | | Eosinophils | performed at [facility];[address] | | LAB | | | | [address];[place] | | | | | | [address] | | | | + + + + + + | % Basophils | 0.57Comment: Testing | % | EXTERNAL | | | | performed at [facility];[address] | | LAB | | | | [address];[place] | | | | | | [address] | | | | + + + + + + | Absolute | 9.75 (H)Comment: Testing | 1.90 - 7.40 | EXTERNAL | | | Segmented | performed at [facility];888 | K/uL | LAB | | | Neutrophils | [address];[place] | | | | | | [address] | | | | + + + + + + | Absolute | 0.47 (L)Comment: Testing | 1.00 - 3.90 | EXTERNAL | | | Lymphocytes | performed at [facility];888 | K/uL | LAB | | | | [address];[place] | | | | | | [address] | | | | + + + + + + | Absolute | 1.22 (H)Comment: Testing | 0.00 - 0.80 | EXTERNAL | | | Monocytes | performed at [facility];888 | K/uL | LAB | | | | [address];[place] | | | | | | [address] | | | | + + + + + + | Absolute | 0.31Comment: Testing | 0.00 - 0.50 | EXTERNAL | | | Eosinophils | performed at [facility];888 | K/uL | LAB | | | | [address];[place] | | | | | | [address] | | | | + + + + + + | Absolute | 0.07Comment: Testing | 0.00 - 0.10 | EXTERNAL | | | Basophils | performed at [facility];[address] | K/uL | LAB | | | | [address];[place] | | | | | | [address] | | | | + + + [...] EXTERNAL | | | | performed at [facility];8 | | LAB | | | | [address];[place], [place] | | | | | | [address] | | | | + + + [...] EXTERNAL | | | | performed at [facility];888 | mmol/L | LAB | | | | [address];[place], [place] | | | | | | [address] | | | | + + + + + + | K | 4.9Comment: Testing | 3.5 - 4.9 | EXTERNAL | | | | performed at [facility];888 | mmol/L | LAB | | | | [address];[place] | | | | | | [address] | | | | + + + + + + | Cl | 93 (L)Comment: Testing | 99 - 109 mmol/L | EXTERNAL | | | | performed at [facility];[address] | | LAB | | | | [address];[place] | | | | | | [address] | | | | + + + + + + | CO2 | 24Comment: Testing | 23 - 32 mmol/L | EXTERNAL | | | | performed at [facility];[address] | | LAB | | | | [address];[place] | | | | | | [address] | | | | + + + + + + | Anion Gap | 17Comment: Testing | 5 - 20 mmol/L | EXTERNAL | | | | performed at [facility];[address] | | LAB | | | | [address];[place] | | | | | | [address] | | | | + + + + + + | Glucose, | 189 (H)Comment: Testing | 65 - 99 mg/dL | EXTERNAL | | | Fasting | performed at [facility];[address] | | LAB | | | | [address];[place] | | | | | | [address] | | | | + + + + + + | BUN | 52 (H)Comment: Testing | 8 - 25 mg/dL | EXTERNAL | | | | performed at [facility];[address] | | LAB | | | | [address];[place] | | | | | | [address] | | | | + + + + + + | Creatinine | 8.7 (H)Comment: Testing | 0.70 - 1.30 | EXTERNAL | | | | performed at [facility];888 | mg/dL | LAB | | | | [address];[place] | | | | | | [address] | | | | + + + + + + | Calcium | 7.1 (L)Comment: Testing | 8.5 - 10.5 | EXTERNAL | | | | performed at [facility];888 | mg/dL | LAB | | | | [address];[place] | | | | | | [address] | | | | + + + + + + | Albumin | 2.7 (L)Comment: Testing | 3.6 - 5.0 g/dL | EXTERNAL | | | | performed at [facility];[address] | | LAB | | | | [address];[place] | | | | | | [address] | | | | + + + + + + | PHOSPHORUS | 4.5Comment: Testing | 2.3 - 4.8 mg/dL | EXTERNAL | | | | performed at [facility];[address] | | LAB | | | | [address];[place] | | | | | | [address] | | | | + + + [...] | | | | | | at [facility];[address] [place] [address] | | | | | | [facility];[place] [address] | | | | + + + [...] prior day venogram | | | PRIMARY WASTE MACHINE TENDER: Jimenez Garnica MD, PhD, RPVI OPERATIONS: 1. [...] | | | a 70 cm 7 Mal[place]ian Jules sheath was advanced to the right atrium. Next, | | | the right basilic vein was locally anesthetized with lidocaine and | | | real-time ultrasound guided micropuncture access was obtained and a 6 | | | Malawian 45 cm destination sheath was placed to [...] | echocardiogram and while awaiting for the pharmacy technician trainee to arise, he | | | began [...] | there still remains significant recoil but lutheran of in-line | | | flow. Following [...] and | | prior day venogram PRIMARY WASTE MACHINE TENDER: Jimenez Garnica MD, PhD, RPVI OPERATIONS:1. | [...] was obtained and a 70 cm 7 [place]ian Jules | | sheath was advanced to the right atrium. Next, the right basilic vein was locally | | anesthetized with lidocaine and real-time ultrasound guided micropuncture access was | | obtained and a 6 Malawian 45 cm destination sheath was placed to [...] an echocardiogram and while awaiting for the pharmacy technician trainee to | | arise, he began personally [...] still remains | | significant recoil but lutheran of in-line flow. Following provisional stent | [...] prior day venogram | | | PRIMARY WASTE MACHINE TENDER: Jimenez Garnica MD, PhD, RPVI OPERATIONS: 1. [...] | | | a 70 cm 7 [place]awian Jules sheath was advanced to the right atrium. Next, | | | the right basilic vein was locally anesthetized with lidocaine and | | | real-time ultrasound guided micropuncture access was obtained and a 6 | | | Malawian 45 cm destination sheath was placed to [...] | echocardiogram and while awaiting for the pharmacy technician trainee to arise, he | | | began [...] | there still remains significant recoil but lutheran of in-line | | | flow. Following [...] and | | prior day venogram PRIMARY WASTE MACHINE TENDER: Jimenez Garnica MD, PhD, VI OPERATIONS:1. | [...] was obtained and a 70 cm 7 Malawian Jules | | sheath was advanced to the right atrium. Next, the right basilic vein was locally | | anesthetized with lidocaine and real-time ultrasound guided micropuncture access was | | obtained and a 6 Malawian 45 cm destination sheath was placed to [...] an echocardiogram and while awaiting for the pharmacy technician trainee to | | arise, he began personally [...] still remains | | significant recoil but lutheran of in-line flow. Following provisional stent | [...] pericardial | | | effusion present. 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..] (A-L): 26.24 ml/m2LAAs | | A2C: 16.62 [id number] A-L A2C: 49.08 mlLALs A2C: 4.77 cmLAAs A4C: 17.33 [id number] | | A-L A4C: 53.09 mlLALs A4C: 4.80 cmAo Diam: 4.05 cmAV Cusp: 2.47 cmLA Diam: | | 3.09 cmLA/Ao: 0.76TAPSE: 2.72 cmIVC diameter: 1.44 cmIVC collapse: 0.39 cmIVC % | | collapse: 71.27 %HR: 82.96 BPMAV maxP.62 mmHgAV meanP.44 mmHgAV Vmax: | | 1.70 m/[place] Vmean: 1.32 m/[place] VTI: 38.03 cmAVA Vmax: 2.75 cm2AVA (VTI): 2.89 | | [id number] Vmax: 0.00 cm2/m2AVAI (VTI): 0.00 cm2/m2LVCI Dopp: 4.59 l/[id number] Dopp: | | 8.95 l/minHR: 81.40 BPMLVOT [...] 0.14 m/sTV A Lenard: 0.84 m/sTV Dec Bertie: | | 3.82 m/s2TV Dec Time: 202.99 msTV E Lenard: 0.77 m/sTV E/A Ratio: 0.91 [employer]: | | KVWAuthenticated by: Kevin Ellis MDReport [...] A Lenard: 0.84 m/s | |TV Dec Bertie: 3.82 m/s2 | |TV Dec Time: 202.99 ms | |TV E Lenard: 0.77 m/s | |TV E/A Ratio: 0.91 | | | |[employer]: KVW | |Authenticated by: Kevin Ellis MD [...] EXTERNAL | | | | performed at [facility];888 | K/uL | LAB | | | | [address];[place] | | | | | | [address] | | | | + + + + + + | RED CELL | 3.18 (L)Comment: Testing | 4.20 - 5.70 | EXTERNAL | | | COUNT | performed at [facility];888 | M/uL | LAB | | | | [address];[place] | | | | | | [address] | | | | + + + + + + | Hgb | 9.6 (L)Comment: Testing | 13.2 - 17.0 | EXTERNAL | | | | performed at [facility];888 | g/dL | LAB | | | | [address];[place] | | | | | | [address] | | | | + + + + + + | Hematocrit, | 28.2 (L)Comment: Testing | 39.0 - 50.0 % | EXTERNAL | | | POC | performed at [facility];[address] | | LAB | | | | [address];[place] | | | | | | [address] | | | | + + + + + + | MCV | 88.8Comment: Testing | 80.0 - 100.0 fl | EXTERNAL | | | | performed at [facility];[address] | | LAB | | | | [address];[place] | | | | | | [address] | | | | + + + + + + | MCH | 30.2Comment: Testing | 27.0 - 34.0 pg | EXTERNAL | | | | performed at [facility];[address] | | LAB | | | | [address];[place] | | | | | | [address] | | | | + + + + + + | MCHC | 34.0Comment: Testing | 32.0 - 35.5 | EXTERNAL | | | | performed at [facility];888 | g/dL | LAB | | | | [address];[place] | | | | | | [address] | | | | + + + + + + | RDW-CV | 52.9Comment: Testing | 37 - 53 fl | EXTERNAL | | | | performed at [facility];[address] | | LAB | | | | [address];[place] | | | | | | [address] | | | | + + + + + + | Platelet | 239Comment: Testing | 150 - 400 K/uL | EXTERNAL | | | Count | performed at [facility];[address] | | LAB | | | Plasma | [address];[place] | | | | | | [address] | | | | + + + + + + | MPV | 6.1Comment: Testing | fl | EXTERNAL | | | | performed at [facility];[address] | | LAB | | | | [address];[place] | | | | | | [address] | | | | + + + + + + | Differentia | AUTOMATEDComment: | | EXTERNAL | | | l Type | Testing performed at | | LAB | | | | [facility];[address];[place] [address] | | | | + + + + + + | % Segmented | 71.63Comment: Testing | % | EXTERNAL | | | | performed at [facility];[address] | | LAB | | | Neutrophils | [address];[place] | | | | | | [address] | | | | + + + + + + | % | 9.51Comment: Testing | % | EXTERNAL | | | Lymphocytes | performed at [facility];[address] | | LAB | | | | [address];[place] | | | | | | [address] | | | | + + + + + + | % Monocytes | 10.36Comment: Testing | % | EXTERNAL | | | | performed at [facility];[address] | | LAB | | | | [address];[place] | | | | | | [address] | | | | + + + + + + | % | 7.66Comment: Testing | % | EXTERNAL | | | Eosinophils | performed at [facility];[address] | | LAB | | | | [address];[place] | | | | | | [address] | | | | + + + + + + | % Basophils | 0.84Comment: Testing | % | EXTERNAL | | | | performed at [facility];[address] | | LAB | | | | [address];[place] | | | | | | [address] | | | | + + + + + + | Absolute | 6.92Comment: Testing | 1.90 - 7.40 | EXTERNAL | | | Segmented | performed at [facility];888 | K/uL | LAB | | | Neutrophils | [address];[place] | | | | | | [address] | | | | + + + + + + | Absolute | 0.92 (L)Comment: Testing | 1.00 - 3.90 | EXTERNAL | | | Lymphocytes | performed at [facility];888 | K/uL | LAB | | | | [address];[place] | | | | | | [address] | | | | + + + + + + | Absolute | 1.00 (H)Comment: Testing | 0.00 - 0.80 | EXTERNAL | | | Monocytes | performed at [facility];888 | K/uL | LAB | | | | [address];[place] | | | | | | [address] | | | | + + + + + + | Absolute | 0.74 (H)Comment: Testing | 0.00 - 0.50 | EXTERNAL | | | Eosinophils | performed at [facility];888 | K/uL | LAB | | | | [address];[place] | | | | | | [address] | | | | + + + + + + | Absolute | 0.08Comment: Testing | 0.00 - 0.10 | EXTERNAL | | | Basophils | performed at [facility];888 | K/uL | LAB | | | | [address];[place] | | | | | | [address] | | | | + + + [...] EXTERNAL | | | | performed at [facility] | | LAB | | | | [address];[place], [place] | | | | | | [address] | | | | + + + [...] EXTERNAL | | | | performed at [facility];[address] | | LAB | | | | [address];[place], [place] | | | | | | [address] | | | | + + + [...] EXTERNAL | | | | performed at [facility];888 | mmol/L | LAB | | | | [address];[place] | | | | | | [address] | | | | + + + + + + | K | 4.5Comment: Testing | 3.5 - 4.9 | EXTERNAL | | | | performed at [facility];888 | mmol/L | LAB | | | | [address];[place] | | | | | | [address] | | | | + + + + + + | Cl | 95 (L)Comment: Testing | 99 - 109 mmol/L | EXTERNAL | | | | performed at [facility];[address] | | LAB | | | | [address];[place] | | | | | | [address] | | | | + + + + + + | CO2 | 28Comment: Testing | 23 - 32 mmol/L | EXTERNAL | | | | performed at [facility];[address] | | LAB | | | | [address];[place] | | | | | | [address] | | | | + + + + + + | Anion Gap | 14Comment: Testing | 5 - 20 mmol/L | EXTERNAL | | | | performed at [facility];[address] | | LAB | | | | [address];[place] | | | | | | [address] | | | | + + + + + + | Glucose, | 100 (H)Comment: Testing | 65 - 99 mg/dL | EXTERNAL | | | Fasting | performed at [facility];[address] | | LAB | | | | [address];[place] | | | | | | [address] | | | | + + + + + + | BUN | 40 (H)Comment: Testing | 8 - 25 mg/dL | EXTERNAL | | | | performed at [facility];[address] | | LAB | | | | [address];[place] | | | | | | [address] | | | | + + + + + + | Creatinine | 6.4 (H)Comment: Testing | 0.70 - 1.30 | EXTERNAL | | | | performed at [facility];888 | mg/dL | LAB | | | | [address];[place] | | | | | | [address] | | | | + + + + + + | BUN/Creatin | 6Comment: Testing | | EXTERNAL | | | ine Ratio | performed at [facility];[address] | | LAB | | | | [address];[place] | | | | | | [address] | | | | + + + + + + | Calcium | 7.3 (L)Comment: Testing | 8.5 - 10.5 | EXTERNAL | | | | performed at [facility];888 | mg/dL | LAB | | | | [address];[place] | | | | | | [address] | | | | + + + + + + | Protein, | 6.8Comment: Testing | 6.3 - 8.2 g/dL | EXTERNAL | | | Total | performed at [facility];[address] | | LAB | | | | [address];[place] | | | | | | [address] | | | | + + + + + + | Albumin | 2.9 (L)Comment: Testing | 3.6 - 5.0 g/dL | EXTERNAL | | | | performed at [facility];[address] | | LAB | | | | [address];[place] | | | | | | [address] | | | | + + + + + + | Globulin | 3.9Comment: Testing | 1.3 - 4.9 g/dL | EXTERNAL | | | | performed at [facility];[address] | | LAB | | | | [address];[place] | | | | | | [address] | | | | + + + + + + | A/G Ratio | 0.8 (L)Comment: Testing | 1.0 - 2.4 | EXTERNAL | | | | performed at [facility];[address] | | LAB | | | | [address];[place] | | | | | | [address] | | | | + + + + + + | Bilirubin | 0.5Comment: Testing | 0.1 - 1.5 mg/dL | EXTERNAL | | | Total | performed at [facility];[address] | | LAB | | | | [address];[place] | | | | | | [address] | | | | + + + + + + | ALP, | 82Comment: Testing | 35 - 115 U/L | EXTERNAL | | | External | performed at [facility];[address] | | LAB | | | | [address];[place] | | | | | | [id number] | | | | + + + + + + | AST | 14Comment: Testing | 10 - 45 U/L | EXTERNAL | | | | performed at [facility];[address] | | LAB | | | | [address];[place] | | | | | | [address] | | | | + + + + + + | ALT | 17Comment: Testing | 10 - 65 U/L | EXTERNAL | | | | performed at [facility];[address] | | LAB | | | | [address];[place] | | | | | | [address] | | | | + + + [...] | | | | | | at [facility];[address];[place] [address] | | | | + + + [...] EXTERNAL | | | | performed at [facility] [facility];888 | K/uL | LAB | | | | [address];[place] | | | | | | [address] | | | | + + + + + + | RED CELL | 3.28 (L)Comment: Testing | 4.20 - 5.70 | EXTERNAL | | | COUNT | performed at [facility];888 | M/uL | LAB | | | | [address];[place] | | | | | | [address] | | | | + + + + + + | Hgb | 10.1 (L)Comment: Testing | 13.2 - 17.0 | EXTERNAL | | | | performed at [facility];888 | g/dL | LAB | | | | [address];[place] | | | | | | [address] | | | | + + + + + + | Hematocrit, | 29.0 (L)Comment: Testing | 39.0 - 50.0 % | EXTERNAL | | | POC | performed at [facility];[address] | | LAB | | | | [address];[place] | | | | | | [address] | | | | + + + + + + | MCV | 88.5Comment: Testing | 80.0 - 100.0 fl | EXTERNAL | | | | performed at [facility];[address] | | LAB | | | | [address];[place] | | | | | | [address] | | | | + + + + + + | MCH | 30.9Comment: Testing | 27.0 - 34.0 pg | EXTERNAL | | | | performed at [facility];[address] | | LAB | | | | [address];[place] | | | | | | [address] | | | | + + + + + + | MCHC | 34.9Comment: Testing | 32.0 - 35.5 | EXTERNAL | | | | performed at [facility];888 | g/dL | LAB | | | | [address];[place] | | | | | | [address] | | | | + + + + + + | RDW-CV | 51.6Comment: Testing | 37 - 53 fl | EXTERNAL | | | | performed at [facility];[address] | | LAB | | | | [address];[place] | | | | | | [address] | | | | + + + + + + | Platelet | 223Comment: Testing | 150 - 400 K/uL | EXTERNAL | | | Count | performed at [facility];888 | | LAB | | | Plasma | [address];[place] | | | | | | [address] | | | | + + + + + + | MPV | 6.5Comment: Testing | fl | EXTERNAL | | | | performed at [facility];[address] | | LAB | | | | [address];[place] | | | | | | [address] | | | | + + + + + + | Differentia | AUTOMATEDComment: | | EXTERNAL | | | l Type | Testing performed at | | LAB | | | | [facility];[address];[place] [address] | | | | + + + + + + | % Segmented | 73.14Comment: Testing | % | EXTERNAL | | | | performed at [facility];[address] | | LAB | | | Neutrophils | [address];[place] | | | | | | [address] | | | | + + + + + + | % | 8.28Comment: Testing | % | EXTERNAL | | | Lymphocytes | performed at [facility];[address] | | LAB | | | | [address];[place] | | | | | | [address] | | | | + + + + + + | % Monocytes | 10.77Comment: Testing | % | EXTERNAL | | | | performed at [facility];[address] | | LAB | | | | [address];[place] | | | | | | [address] | | | | + + + + + + | % | 7.40Comment: Testing | % | EXTERNAL | | | Eosinophils | performed at [facility];[address] | | LAB | | | | [address];[place] | | | | | | [address] | | | | + + + + + + | % Basophils | 0.41Comment: Testing | % | EXTERNAL | | | | performed at [facility];[address] | | LAB | | | | [address];[place] | | | | | | [address] | | | | + + + + + + | Absolute | 6.77Comment: Testing | 1.90 - 7.40 | EXTERNAL | | | Segmented | performed at [facility];[address] | K/uL | LAB | | | Neutrophils | [address];[place] | | | | | | [address] | | | | + + + + + + | Absolute | 0.77 (L)Comment: Testing | 1.00 - 3.90 | EXTERNAL | | | Lymphocytes | performed at [facility];[address] | K/uL | LAB | | | | [address];[place] | | | | | | [address] | | | | + + + + + + | Absolute | 1.00 (H)Comment: Testing | 0.00 - 0.80 | EXTERNAL | | | Monocytes | performed at [facility];[address] | K/uL | LAB | | | | [address];[place] | | | | | | [address] | | | | + + + + + + | Absolute | 0.68 (H)Comment: Testing | 0.00 - 0.50 | EXTERNAL | | | Eosinophils | performed at [facility];[address] | K/uL | LAB | | | | [address];[place] | | | | | | [address] | | | | + + + + + + | Absolute | 0.04Comment: Testing | 0.00 - 0.10 | EXTERNAL | | | Basophils | performed at [facility];[address] | K/uL | LAB | | | | [address];[place], [place] | | | | | | [address] | | | | + + + [...] EXTERNAL | | | | performed at [facility];[address] | | LAB | | | | [address];[place], [place] | | | | | | [address] | | | | + + + [...] EXTERNAL | | | | performed at [facility];[address] | | LAB | | | | [address];[place] | | | | | | [address] | | | | + + + [...] EXTERNAL | | | | performed at [facility];888 | mmol/L | LAB | | | | [address];[place] | | | | | | [address] | | | | + + + + + + | K | 3.8Comment: Testing | 3.5 - 4.9 | EXTERNAL | | | | performed at [facility];888 | mmol/L | LAB | | | | [address];[place] | | | | | | [address] | | | | + + + + + + | Cl | 97 (L)Comment: Testing | 99 - 109 mmol/L | EXTERNAL | | | | performed at [facility];[address] | | LAB | | | | [address];[place] | | | | | | [address] | | | | + + + + + + | CO2 | 28Comment: Testing | 23 - 32 mmol/L | EXTERNAL | | | | performed at [facility];[address] | | LAB | | | | [address];[place] | | | | | | [address] | | | | + + + + + + | Anion Gap | 14Comment: Testing | 5 - 20 mmol/L | EXTERNAL | | | | performed at [facility];[address] | | LAB | | | | [address];[place] | | | | | | [address] | | | | + + + + + + | Glucose, | 120 (H)Comment: Testing | 65 - 99 mg/dL | EXTERNAL | | | Fasting | performed at [facility];[address] | | LAB | | | | [address];[place] | | | | | | [address] | | | | + + + + + + | BUN | 27 (H)Comment: Testing | 8 - 25 mg/dL | EXTERNAL | | | | performed at [facility];[address] | | LAB | | | | [address];[place] | | | | | | [address] | | | | + + + + + + | Creatinine | 4.5 (H)Comment: Testing | 0.70 - 1.30 | EXTERNAL | | | | performed at [facility];888 | mg/dL | LAB | | | | [address];[place] | | | | | | [address] | | | | + + + + + + | BUN/Creatin | 6Comment: Testing | | EXTERNAL | | | ine Ratio | performed at [facility];[address] | | LAB | | | | [address];[place] | | | | | | [address] | | | | + + + + + + | Calcium | 7.8 (L)Comment: Testing | 8.5 - 10.5 | EXTERNAL | | | | performed at [facility];888 | mg/dL | LAB | | | | [address];[place] | | | | | | [address] | | | | + + + + + + | Protein, | 7.1Comment: Testing | 6.3 - 8.2 g/dL | EXTERNAL | | | Total | performed at [facility];[address] | | LAB | | | | [address];[place] | | | | | | [address] | | | | + + + + + + | Albumin | 3.1 (L)Comment: Testing | 3.6 - 5.0 g/dL | EXTERNAL | | | | performed at [facility];[address] | | LAB | | | | [address];[place] | | | | | | [address] | | | | + + + + + + | Globulin | 4.0Comment: Testing | 1.3 - 4.9 g/dL | EXTERNAL | | | | performed at [facility];[address] | | LAB | | | | [address];[place] | | | | | | [address] | | | | + + + + + + | A/G Ratio | 0.8 (L)Comment: Testing | 1.0 - 2.4 | EXTERNAL | | | | performed at [facility];[address] | | LAB | | | | [address];[place] | | | | | | [address] | | | | + + + + + + | Bilirubin | 0.5Comment: Testing | 0.1 - 1.5 mg/dL | EXTERNAL | | | Total | performed at [facility];[address] | | LAB | | | | [address];[place] | | | | | | [address] | | | | + + + + + + | ALP, | 91Comment: Testing | 35 - 115 U/L | EXTERNAL | | | External | performed at [facility];[address] | | LAB | | | | [address];[place] | | | | | | [address] | | | | + + + + + + | AST | 15Comment: Testing | 10 - 45 U/L | EXTERNAL | | | | performed at [facility];[address] | | LAB | | | | [address];[place] | | | | | | [address] | | | | + + + + + + | ALT | 23Comment: Testing | 10 - 65 U/L | EXTERNAL | | | | performed at [facility];[address] | | LAB | | | | [facility], [place] | | | | | | [address] | | | | + + + [...] | | | | | | at [facility];[address] [facility] | | | | | | Blvd;[place] [address] | | | | + + + [...] Conversion - 02/04/2019 10:13 PM PDT CAROL Jonny JIMCT CHEST W CONTRAST09/10/2016 | | 12:20 [...] was | | | notified by the dental technologist and was asked to evaluate the [...] Conversion - 02/04/2019 10:13 PM PDT CAROL G JIM1965 51 years MaleCT | | CHEST [...] injection site. I was notified by the dental technologist and was asked to evaluate the [...] guidance SURGEON Oskar Meyer, | | | FUEL OPERATOR None ANESTHESIA Moderate sedation, local | | [...] | | | subclavian vein. Therefore a 6-Malawian sheath was then inserted over | | [...] | CONTRAST USED55 mL of Isovue-250 INDICATIONSMr. Tarqi is a pleasant 51-year-old male who | [...] guidance SURGEON Oskar Meyer, | | | FUEL OPERATOR None ANESTHESIA Moderate sedation, local | | [...] | | | subclavian vein. Therefore a 6-Malawian sheath was then inserted over | | [...] SURGEON Oskar Meyer, | | | MD FUEL OPERATOR None ANESTHESIA Moderate sedation, local | | [...] | | | subclavian vein. Therefore a 6-Malawian sheath was then inserted over | | [...] SURGEON Oskar Meyer, | | | MD FUEL OPERATOR None ANESTHESIA Moderate sedation, local | | [...] | | | subclavian vein. Therefore a 6-Malawian sheath was then inserted over | | [...] | | | Fingerstick | performed at [facility];[address] | | LAB | | | | [address];[place] | | | | | | [address] | | | | + + + [...] | | | Fingerstick | performed at [facility];[address] | | LAB | | | | [address];[place], [place] | | | | | | [address] | | | | + + + [...] | | | | | [place] [address] | | | | + + + + + + | RED CELL | 3.39 (L)Comment: Testing | 4.20 - 5.70 | EXTERNAL | | | COUNT | performed at [facility], [address] | [address]/u[address] | LAB | | | | [address], | | | | | | [place] [address] | | | | + + + + + + | Hgb | 10.4 (L)Comment: Testing | 13.2 - 17.0 | EXTERNAL | | | | performed at [facility], [address] | g/dL | LAB | | | | [address], | | | | | | [place] [address] | | | | + + + + + + | Hematocrit, | 29.7 (L)Comment: Testing | 39.0 - 50.0 % | EXTERNAL | | | POC | performed at [facility], [address] | | LAB | | | | [address], | | | | | | [place] [address] | | | | + + + + + + | MCV | 87.6Comment: Testing | 80.0 - 100.0 fl | EXTERNAL | | | | performed at [facility], [address] | | LAB | | | | [address], | | | | | | [place] [address] | | | | + + + + + + | MCH | 30.5Comment: Testing | 27.0 - 34.0 pg | EXTERNAL | | | | performed at [facility], [address] | | LAB | | | [address], | | | | | | [place] [address] | | | | + + + + + + | MCHC | 34.9Comment: Testing | 32.0 - 35.5 | EXTERNAL | | | | performed at [facility], [address] | g/dL | LAB | | | | [address], | | | | | | [place] [address] | | | | + + + + + + | RDW-CV | 52.9Comment: Testing | 37 - 53 fl | EXTERNAL | | | | performed at [facility], [address] | | LAB | | | | [address], | | | | | | [place], [place] [address] | | | | + + + + + + | Platelet | 255Comment: Testing | 150 - 400 K/uL | EXTERNAL | | | Count | performed at [facility], [address] | | LAB | | | Plasma | [address], | | | | | | [place], [place] [address] | | | | + + + + + + | MPV | 6.8Comment: Testing | fl | EXTERNAL | | | | performed at [facility], [address] | | LAB | | | | [address], | | | | | | [place], [place] [address] | | | | + + + + + + | Differentia | MANUALComment: Testing | | EXTERNAL | | | l Type | performed at [facility], [address] | | LAB | | | | [address], | | | | | | [place], [place] [address] | | | | + + + + + + | Segmented | 95Comment: Testing | % | EXTERNAL | | | Neutrophils | performed at [facility], [address] | | LAB | | | Manual | [address], | | | | | | [place] [address] | | | | + + + + + + | Lymphocytes | 3Comment: Testing | % | EXTERNAL | | | Manual | performed at [facility], [address] | | LAB | | | | [address], | | | | | | [place] [address] | | | | + + + + + + | Monocytes | 2Comment: Testing | % | EXTERNAL | | | Manual | performed at [facility], [address] | | LAB | | | | [address], | | | | | | [place] [address] | | | | + + + + + + | Absolute | 9.41 (H)Comment: Testing | 1.90 - 7.40 | EXTERNAL | | | Neutrophils | performed at [facility], [address] | K/uL | LAB | | | | [address], | | | | | | [place] [address] | | | | + + + + + + | Absolute | 0.30 (L)Comment: Testing | 1.00 - 3.90 | EXTERNAL | | | Lymphocytes | performed at [facility], [address] | K/uL | LAB | | | | [address], | | | | | | [place] [address] | | | | + + + + + + | Absolute | 0.20Comment: Testing | 0.00 - 0.80 | EXTERNAL | | | Monocytes | performed at [facility], [address] | K/uL | LAB | | | | [address], | | | | | | [place] [address] | | | | + + + + + + | RBC | RBC AND PLT MORPHOLOGY | | EXTERNAL | | | Morphology | APPEAR NORMALComment: | | LAB | | | | Testing performed at | | | | | | [facility], [address] | | | | | | [place] | | | | | | [address] | | | | + + + [...] | performed at [facility], [address] | | LAB | | | | [address], | | | | | | [place] [address] | | | | + + + [...] | performed at [facility], [address] | | LAB | | | | [address], | | | | | | [place] [address] | | | | + + + [...] EXTERNAL | | | | performed at [facility];[address] | | LAB | | | | [address];[place] | | | | | | [address] | | | | + + + [...] | | | | | [place] [address] | | | | + + + + + + | K | 4.4Comment: Testing | 3.5 - 4.9 | EXTERNAL | | | | performed at [facility], [address] | mmol/L | LAB | | | | [address], | | | | | | [place] [address] | | | | + + + + + + | Cl | 98 (L)Comment: Testing | 99 - 109 mmol/L | EXTERNAL | | | | performed at [facility], [address] | | LAB | | | | [address], | | | | | | [place] [address] | | | | + + + + + + | CO2 | 22 (L)Comment: Testing | 23 - 32 mmol/L | EXTERNAL | | | | performed at [facility], [address] | | LAB | | | | [address], | | | | | | [place] [address] | | | | + + + + + + | Anion Gap | 19Comment: Testing | 5 - 20 mmol/L | EXTERNAL | | | | performed at [facility], [address] | | LAB | | | | [address], | | | | | | [place] [address] | | | | + + + + + + | Glucose, | 169 (H)Comment: Testing | 65 - 99 mg/dL | EXTERNAL | | | Fasting | performed at [facility], [address] | | LAB | | | | [address], | | | | | | [place] [address] | | | | + + + + + + | BUN | 41 (H)Comment: Testing | 8 - 25 mg/dL | EXTERNAL | | | | performed at [facility], [address] | | LAB | | | | [address], | | | | | | [place] [address] | | | | + + + + + + | Creatinine | 5.5 (H)Comment: Testing | 0.70 - 1.30 | EXTERNAL | | | | performed at [facility], [address] | mg/dL | LAB | | | | [address], | | | | | | [place] [address] | | | | + + + + + + | BUN/Creatin | 7Comment: Testing | | EXTERNAL | | | ine Ratio | performed at [facility], [address] | | LAB | | | | [address], | | | | | | [place] [address] | | | | + + + + + + | Calcium | 8.5Comment: Testing | 8.5 - 10.5 | EXTERNAL | | | | performed at [facility], [address] | mg/dL | LAB | | | | [address], | | | | | | [place] [address] | | | | + + + + + + | Protein, | 7.4Comment: Testing | 6.3 - 8.2 g/dL | EXTERNAL | | | Total | performed at [facility], [address] | | LAB | | | | [address], | | | | | | [place] [address] | | | | + + + + + + | Albumin | 3.5 (L)Comment: Testing | 3.6 - 5.0 g/dL | EXTERNAL | | | | performed at [facility], [address] | | LAB | | | | [address], | | | | | | [place] [address] | | | | + + + + + + | Globulin | 3.9Comment: Testing | 1.3 - 4.9 g/dL | EXTERNAL | | | | performed at [facility], [address] | | LAB | | | | [address], | | | | | | [place] [address] | | | | + + + + + + | A/G Ratio | 0.9 (L)Comment: Testing | 1.0 - 2.4 | EXTERNAL | | | | performed at [facility], [address] | | LAB | | | | [address], | | | | | | [place] [address] | | | | + + + + + + | Bilirubin | 0.8Comment: Testing | 0.1 - 1.5 mg/dL | EXTERNAL | | | Total | performed at [facility], [address] | | LAB | | | | [address], | | | | | | [place] [address] | | | | + + + + + + | ALP, | 81Comment: Testing | 35 - 115 U/L | EXTERNAL | | | External | performed at [facility], [address] | | LAB | | | | [address], | | | | | | [place] [address] | | | | + + + + + + | AST | 23Comment: Testing | 10 - 45 U/L | EXTERNAL | | | | performed at [facility], [address] | | LAB | | | | [address], | | | | | | [place] [address] | | | | + + + + + + | ALT | 35Comment: Testing | 10 - 65 U/L | EXTERNAL | | | | performed at [facility], [address] | | LAB | | | | [address], | | | | | | [place] [address] | | | | + + + [...] | | | | | [place] [address] | | | | + + + [...] | | | Fingerstick | performed at [facility];[address] | | LAB | | | | [address];[place], [place] | | | | | | [address] | | | | + + + [...] 1:06AM Referring Provider Line: | | | [phone] ID: [id number] | | + + + [...] 2016 1:06AM Referring | | Provider Line: [phone] ID: [id number] | |COMPARISON: 04/28/2016. | | [...] 08 2016 1:06AM Referring Provider Mariah ne: [phone] ID: [id number] | + + POC Glucose (09/07/2016 11:47 PM PDT) + + + + + + | Component | Value | Ref Range | Performed | Pathologist | | | | | At | Signature | + + + + + + | Glucose, | 115 (H)Comment: Testing | 65 - 99 mg/dL | EXTERNAL | | | Fingerstick | performed at [facility];[address] | | LAB | | | | [address];[place], [place] | | | | | | [address] | | | | + + + [...] | | | Fingerstick | performed at [facility];[address] | | LAB | | | | [address];[place] | | | | | | [address] | | | | + + + [...] EXTERNAL | | | | performed at [facility];[address] | | LAB | | | | [address];[place] | | | | | | [address] | | | | + + + + + + | Clarity | CLEARComment: Testing | | EXTERNAL | | | | performed at [facility];[address] | | LAB | | | | [address];[place] | | | | | | [address] | | | | + + + + + + | Specific | 1.008Comment: Testing | 1.002 - 1.030 | EXTERNAL | | | [place] | performed at [facility];[address] | | LAB | | | | [address];[place] | | | | | | [address] | | | | + + + + + + | Leukocyte | NEGATIVEComment: Testing | | EXTERNAL | | | Esterase, | performed at [facility];[address] | | LAB | | | Urine | [address];[place] | | | | | | [address] | | | | + + + + + + | Nitrite, | NEGATIVEComment: Testing | | EXTERNAL | | | Urine | performed at [facility];[address] | | LAB | | | | [address];[place] | | | | | | [address] | | | | + + + + + + | Urobilinoge | NORMALComment: Testing | mg/dL | EXTERNAL | | | n, Urine | performed at [facility];[address] | | LAB | | | | [address];[place] | | | | | | [address] | | | | + + + + + + | Protein, | 100 (A)Comment: Testing | mg/dL | EXTERNAL | | | Urine | performed at [facility];[address] | | LAB | | | | [address];[place] | | | | | | [address] | | | | + + + + + + | pH, Urine | 6.0Comment: Testing | 5.0 - 8.0 | EXTERNAL | | | | performed at [facility];[address] | | LAB | | | | [address];[place] | | | | | | [address] | | | | + + + + + + | Blood, | SMALL (A)Comment: | | EXTERNAL | | | Urine | Testing performed at | | LAB | | | | [facility];[address];[place] [address] | | | | + + + + + + | Ketones | NEGATIVEComment: Testing | mg/dL | EXTERNAL | | | | performed at [facility];[address] | | LAB | | | | [address];[place] | | | | | | [address] | | | | + + + + + + | Bilirubin, | NEGATIVEComment: Testing | | EXTERNAL | | | Urine | performed at [facility];[address] | | LAB | | | | [address];[place] | | | | | | [address] | | | | + + + + + + | Glucose, | >500 (A)Comment: Testing | mg/dL | EXTERNAL | | | Urine | performed at [facility];[address] | | LAB | | | | [address];[place] | | | | | | [address] | | | | + + + + + + | WBC, UA | 0-2Comment: Testing | 0 - 5 /hpf | EXTERNAL | | | | performed at [facility];[address] | | LAB | | | | [address];[place] | | | | | | [address] | | | | + + + + + + | RBC, UA | NONE SEENComment: | 0 - 2 /hpf | EXTERNAL | | | | Testing performed at | | LAB | | | | [facility];[address];[place] [address] | | | | + + + + + + | Bacteria, | NONE SEENComment: | | EXTERNAL | | | UA | Testing performed at | | LAB | | | | [facility];[address];[place] [address] | | | | + + + + + + | Epithelial | 26-49Comment: Testing | /lpf | EXTERNAL | | | Cells | performed at [facility];[address] | | LAB | | | | [address];[place] | | | | | | [address] | | | | + + + + + + + + | Specimen | + + | | + + + +---------+ + + | Performing | Address | City/State/Zipcode | Phone Number | | Organization | | | | + +---------+ + + | EXTERNAL LAB | | | | + +---------+ + + Guyime KRISTINA (09/07/2016 8:23 PM PDT) + + + [...] | | | | | performed at [facility] | | | | | | [address];[place], [place] | | | | | | [address] | | | | + + + [...] EXTERNAL | | | | performed at [facility];[address] | K/uL | LAB | | | | [address];[place] | | | | | | [address] | | | | + + + + + + | RED CELL | 3.37 (L)Comment: Testing | 4.20 - 5.70 | EXTERNAL | | | COUNT | performed at [facility];[address] | M/uL | LAB | | | | [address];[place] | | | | | | [address] | | | | + + + + + + | Hgb | 10.4 (L)Comment: Testing | 13.2 - 17.0 | EXTERNAL | | | | performed at [facility];888 | g/dL | LAB | | | | [address];[place] | | | | | | [address] | | | | + + + + + + | Hematocrit, | 30.4 (L)Comment: Testing | 39.0 - 50.0 % | EXTERNAL | | | POC | performed at [facility];[address] | | LAB | | | | [address];[place] | | | | | | [address] | | | | + + + + + + | MCV | 90.1Comment: Testing | 80.0 - 100.0 fl | EXTERNAL | | | | performed at [facility];[address] | | LAB | | | | [address];[place] | | | | | | [address] | | | | + + + + + + | MCH | 30.8Comment: Testing | 27.0 - 34.0 pg | EXTERNAL | | | | performed at [facility];[address] | | LAB | | | | [address];[place] | | | | | | [address] | | | | + + + + + + | MCHC | 34.1Comment: Testing | 32.0 - 35.5 | EXTERNAL | | | | performed at [facility];888 | g/dL | LAB | | | | [address];[place] | | | | | | [address] | | | | + + + + + + | RDW-CV | 54.7 (H)Comment: Testing | 37 - 53 fl | EXTERNAL | | | | performed at [facility];[address] | | LAB | | | | [address];[place] | | | | | | [address] | | | | + + + + + + | Platelet | 224Comment: Testing | 150 - 400 K/uL | EXTERNAL | | | Count | performed at [facility];[address] | | LAB | | | Plasma | [address];[place] | | | | | | [address] | | | | | | | | | | + + + + + + | MPV | 6.5Comment: Testing | fl | EXTERNAL | | | | performed at [facility];[address] | | LAB | | | | [address];[place] | | | | | | [address] | | | | | | | | | | + + + + + + | Differentia | MANUALComment: Testing | | EXTERNAL | | | l Type | performed at [facility];[address] | | LAB | | | | [address];[place] | | | | | | [address] | | | | + + + + + + | Segmented | 86Comment: Testing | % | EXTERNAL | | | Neutrophils | performed at [facility];[address] | | LAB | | | Manual | [address];[place] | | | | | | [address] | | | | + + + + + + | % Bands | 11Comment: Testing | % | EXTERNAL | | | | performed at [facility];[address] | | LAB | | | | [address];[place] | | | | | | [address] | | | | + + + + + + | Lymphocytes | 2Comment: Testing | % | EXTERNAL | | | Manual | performed at [facility];[address] | | LAB | | | | [address];[place] | | | | | | [address] | | | | + + + + + + | Monocytes | 1Comment: Testing | % | EXTERNAL | | | Manual | performed at [facility];[address] | | LAB | | | | [address];[place] | | | | | | [address] | | | | + + + + + + | Absolute | 9.43 (H)Comment: Testing | 1.90 - 7.40 | EXTERNAL | | | Neutrophils | performed at [facility];888 | K/uL | LAB | | | | [address];[place] | | | | | | [address] | | | | + + + + + + | Bands | 1.21 (H)Comment: Testing | 0.00 - 0.20 | EXTERNAL | | | Manual | performed at [facility];888 | K/uL | LAB | | | | [address];[place] | | | | | | [address] | | | | + + + + + + | Absolute | 0.22 (L)Comment: Testing | 1.00 - 3.90 | EXTERNAL | | | Lymphocytes | performed at [facility];888 | K/uL | LAB | | | | [address];[place] | | | | | | [address] | | | | + + + + + + | Absolute | 0.11Comment: Testing | 0.00 - 0.80 | EXTERNAL | | | Monocytes | performed at [facility];888 | K/uL | LAB | | | | [address];[place] | | | | | | [address] | | | | + + + + + + | Platelet | ADEQUATEComment: Testing | | EXTERNAL | | | Estimate | performed at [facility];[address] | | LAB | | | | [address];[place] | | | | | | [address] | | | | + + + + + + | RBC | RBC AND PLT MORPHOLOGY | | EXTERNAL | | | Morphology | APPEAR NORMALComment: | | LAB | | | | Testing performed at | | | | | | [facility];[address] [facility] | | | | | | [address];[place] [address] | | | | + + + [...] EXTERNAL | | | | performed at [facility];888 | mmol/L | LAB | | | | [address];[place] | | | | | | [address] | | | | + + + + + + | K | 6.9 ()Comment: RESULT | 3.5 - 4.9 | EXTERNAL | | | | READ BACK BY:LORRAINE Rousseau AT | mmol/L | LAB | | | | 2057 BY JSSTesting | | | | | | performed at [facility];[address] | | | | | | [address];[place] | | | | | | [address] | | | | + + + + + + | Cl | 102Comment: Testing | 99 - 109 mmol/L | EXTERNAL | | | | performed at [facility];[address] | | LAB | | | | [address];[place] | | | | | | [address] | | | | + + + + + + | CO2 | 17 (L)Comment: Testing | 23 - 32 mmol/L | EXTERNAL | | | | performed at [facility];[address] | | LAB | | | | [address];[place] | | | | | | [address] | | | | + + + + + + | Anion Gap | 18Comment: Testing | 5 - 20 mmol/L | EXTERNAL | | | | performed at [facility];[address] | | LAB | | | | [address];[place] | | | | | | [address] | | | | + + + + + + | Glucose, | 205 (H)Comment: Testing | 65 - 99 mg/dL | EXTERNAL | | | Fasting | performed at [facility];[address] | | LAB | | | | [address];[place] | | | | | | [address] | | | | + + + + + + | BUN | 87 (H)Comment: Testing | 8 - 25 mg/dL | EXTERNAL | | | | performed at [facility];[address] | | LAB | | | | [address];[place] | | | | | | [address] | | | | + + + + + + | Creatinine | 10 (H)Comment: Testing | 0.70 - 1.30 | EXTERNAL | | | | performed at [facility];888 | mg/dL | LAB | | | | [address];[place] | | | | | | [address] | | | | + + + + + + | BUN/Creatin | 9Comment: Testing | | EXTERNAL | | | ine Ratio | performed at [facility];[address] | | LAB | | | | [address];[place] | | | | | | [address] | | | | + + + + + + | Calcium | 7.7 (L)Comment: Testing | 8.5 - 10.5 | EXTERNAL | | | | performed at [facility];888 | mg/dL | LAB | | | | [address];[place] | | | | | | [address] | | | | + + + + + + | Protein, | 7.8Comment: Testing | 6.3 - 8.2 g/dL | EXTERNAL | | | Total | performed at [facility];[address] | | LAB | | | | [address];[place] | | | | | | [address] | | | | + + + + + + | Albumin | 3.6Comment: Testing | 3.6 - 5.0 g/dL | EXTERNAL | | | | performed at [facility];[address] | | LAB | | | | [address];[place] | | | | | | [address] | | | | + + + + + + | Globulin | 4.2Comment: Testing | 1.3 - 4.9 g/dL | EXTERNAL | | | | performed at [facility];[address] | | LAB | | | | [address];[place] | | | | | | [address] | | | | + + + + + + | A/G Ratio | 0.9 (L)Comment: Testing | 1.0 - 2.4 | EXTERNAL | | | | performed at [facility];[address] | | LAB | | | | [address];[place] | | | | | | [address] | | | | + + + + + + | Bilirubin | 0.6Comment: Testing | 0.1 - 1.5 mg/dL | EXTERNAL | | | Total | performed at [facility];[address] | | LAB | | | | [address];[place] | | | | | | [address] | | | | + + + + + + | ALP, | 85Comment: Testing | 35 - 115 U/L | EXTERNAL | | | External | performed at [facility];[address] | | LAB | | | | [address];[place] | | | | | | [address] | | | | + + + + + + | AST | 25Comment: Testing | 10 - 45 U/L | EXTERNAL | | | | performed at [facility];[address] | | LAB | | | | [address];[place] | | | | | | [address] | | | | + + + + + + | ALT | 37Comment: Testing | 10 - 65 U/L | EXTERNAL | | | | performed at [facility];[address] | | LAB | | | | [address];[place] | | | | | | [address] | | | | + + + [...] | | | | | | at [facility];[address] [place] [address] | | | | | | [facility];[place] [address] | | | | + + + [...]
--- OUTSIDE RECORDS SUMMARY | ~2019-05-20 | XMS | Encounter Summary ---
Demographics + + + | Address | [address] | | | [place] [address] | + + + | Home Phone | | + + + | Preferred Language | Unknown | + + + | Marital Status | Unknown | + + + | Moravian Affiliation | 1076 | + + + | Race | Unknown | + + + | Ethnic Group | Unknown | + + + Author + + + | Author | [facility] | | | and [place] | + + + | Organization | [facility] | [...] Team Providers + +------+ + | Care Dormitory Counselor Name | Role | Phone | + +------+ + PCP | Unavailable | + +------+ + Encounter Details +--------+ + + + + | Date | Type | Department | Care Team | Description | +--------+ + + + + | 04/29/ | Hospital | [facility] | Conversion | | | 2014 | Encounter | [facility] | Transaction, | | | | | OUTPATIENT | Provider Unknown | | | | | PROCEDURES [address] | | | | | | [address] | (Fax) | | | | | [place], [place] | | | | | | [address] | | | | | | [phone] | | | +--------+ + + + [...] as directed by | | 0 | 09/14/20 | | | Monitoring Suppl | physician [...]
--- OUTSIDE RECORDS SUMMARY | ~2019-05-20 | XMS | Encounter Summary ---
Demographics + + + | Address | [address] | | | [place] [address] | + + + | Home Phone | | + + + | Preferred Language | Unknown | + + + | Marital Status | Unknown | + + + | Amish Affiliation | 1076 | + + + | Race | Unknown | + + + | Ethnic Group | Unknown | + + + Author + + + | Author | [facility] | | | and [place] | + + + | Organization | [facility] | | [...] Team Providers + +------+ + | Care Drawing Hand Name | Role | Phone | + +------+ + PCP | Unavailable | + +------+ + Encounter Details +--------+ + + + + | Date | Type | Department | Care Team | Description | +--------+ + + + + | 12/01/ | Hospital | [facility] | Conversion | ESRD (end stage | | 2014 | Encounter | [facility] | Transaction, | renal disease) (HCC) | | | | [address] | Provider Unknown | | | | | [place], [place] | [phone] | | | | | [address] | | | | | | [phone] | Juan Timmons MD | | | | | | [address] | | | | | | [place] | | | | | | [address] | | | | | | | [...] Date of Service: 12/01/13 1120 Status: Addendum Food Bagging Machine Operator: Melvi Tate MD (Physician) Related [...] removed and a new 23 cm [facility] | | | catheter was introduced over [...] removed and a new 23 cm [facility] catheter was | | introduced over the [...] removed and a new 23 cm [facility] c atheter was introduced over the wire. [...] | | | | | performed at [facility];[address] | | | | | | [facility];[place], [place] | | | | | | [address] | | | | + + + [...] EXTERNAL | | | | performed at [facility];[address] | | LAB | | | | [address];[place] | | | | | | [address] | | | | + + + + + + | RED CELL | 3.82 (L)Comment: Testing | 4.20 - 5.70 | EXTERNAL | | | COUNT | performed at [facility];888 | M/uL | LAB | | | | [address];[place] | | | | | | [address] | | | | + + + + + + | Hgb | 12.5 (L)Comment: Testing | 13.2 - 17.0 | EXTERNAL | | | | performed at [facility];888 | g/dL | LAB | | | | [address];[place] | | | | | | [address] | | | | + + + + + + | Hematocrit, | 36.7 (L)Comment: Testing | 39.0 - 50.0 % | EXTERNAL | | | POC | performed at [facility];[address] | | LAB | | | | [address];[place] | | | | | | [address] | | | | + + + + + + | MCV | 96.0Comment: Testing | 80.0 - 100.0 fl | EXTERNAL | | | | performed at [facility];[address] | | LAB | | | | [address];[place] | | | | | | [address] | | | | + + + + + + | MCH | 32.8Comment: Testing | 27.0 - 34.0 pg | EXTERNAL | | | | performed at [facility];[address] | | LAB | | | | [address];[place] | | | | | | [address] | | | | + + + + + + | MCHC | 34.2Comment: Testing | 32.0 - 35.5 | EXTERNAL | | | | performed at [facility];888 | g/dL | LAB | | | | [address];[place] | | | | | | [address] | | | | + + + + + + | RDW-CV | 51.6Comment: Testing | 37 - 53 fl | EXTERNAL | | | | performed at [facility];[address] | | LAB | | | | [address];[place] | | | | | | [address] | | | | + + + + + + | Platelet | 188Comment: Testing | 150 - 400 K/uL | EXTERNAL | | | Count | performed at [facility];[address] | | LAB | | | Plasma | [address];[place] | | | | | | [address] | | | | + + + + + + | MPV | 6.6Comment: Testing | fl | EXTERNAL | | | | performed at [facility];[address] | | LAB | | | | [address];[place] | | | | | | [address] | | | | + + + + + + | Differentia | AUTOMATEDComment: | | EXTERNAL | | | l Type | Testing performed at | | LAB | | | | [facility];[address];[place] [address] | | | | + + + + + + | % Segmented | 71.6Comment: Testing | % | EXTERNAL | | | | performed at [facility];[address] | | LAB | | | Neutrophils | [address];[place] | | | | | | [address] | | | | + + + + + + | % | 12.4Comment: Testing | % | EXTERNAL | | | Lymphocytes | performed at [facility];[address] | | LAB | | | | [address];[place] | | | | | | [address] | | | | + + + + + + | % Monocytes | 11.0Comment: Testing | % | EXTERNAL | | | | performed at [facility];[address] | | LAB | | | | [address];[place] | | | | | | [address] | | | | + + + + + + | % | 4.6Comment: Testing | % | EXTERNAL | | | Eosinophils | performed at [facility];[address] | | LAB | | | | [address];[place] | | | | | | [address] | | | | + + + + + + | % Basophils | 0.4Comment: Testing | % | EXTERNAL | | | | performed at [facility];[address] | | LAB | | | | [address];[place] | | | | | | [address] | | | | + + + + + + | Absolute | 4.9Comment: Testing | 1.9 - 7.4 K/uL | EXTERNAL | | | Segmented | performed at [facility];[address] | | LAB | | | Neutrophils | [address];[place] | | | | | | [address] | | | | + + + + + + | Absolute | 0.9 (L)Comment: Testing | 1.0 - 3.9 K/uL | EXTERNAL | | | Lymphocytes | performed at [facility];[address] | | LAB | | | | [address];[place] | | | | | | [address] | | | | + + + + + + | Absolute | 0.8Comment: Testing | 0 - 0.8 K/uL | EXTERNAL | | | Monocytes | performed at [facility];[address] | | LAB | | | | [address];[place] | | | | | | [address] | | | | + + + + + + | Absolute | 0.3Comment: Testing | 0 - 0.5 K/uL | EXTERNAL | | | Eosinophils | performed at [facility];[address] | | LAB | | | | [address];[place] | | | | | | [address] | | | | + + + + + + | Absolute | 0.0Comment: Testing | 0 - 0.1 K/uL | EXTERNAL | | | Basophils | performed at [facility];[address] | | LAB | | | | [address];[place], [place] | | | | | | [address] | | | | + + + [...] EXTERNAL | | | | performed at [facility];888 | mmol/L | LAB | | | | [address];[place] | | | | | | [address] | | | | + + + + + + | K | 4.2Comment: Testing | 3.5 - 4.9 | EXTERNAL | | | | performed at [facility];888 | mmol/L | LAB | | | | [address];[place] | | | | | | [address] | | | | + + + + + + | Cl | 105Comment: Testing | 99 - 109 mmol/L | EXTERNAL | | | | performed at [facility];[address] | | LAB | | | | [address];[place] | | | | | | [address] [...] | | | | | performed at [facility];[address] | | | | | | [address];[place] | | | | | | [address] | | | | + + + + + + | Anion Gap | 20Comment: Testing | 5 - 20 mmol/L | EXTERNAL | | | | performed at [facility];[address] | | LAB | | | | [address];[place] | | | | | | [address] | | | | + + + + + + | Glucose, | 93Comment: Testing | 65 - 99 mg/dL | EXTERNAL | | | Fasting | performed at [facility];[address] | | LAB | | | | [address];[place] | | | | | | [address] | | | | + + + + + + | BUN | 53 (H)Comment: Testing | 8 - 25 mg/dL | EXTERNAL | | | | performed at [facility];[address] | | LAB | | | | [address];[place] | | | | | | [address] | | | | + + + + + + | Creatinine | 10.71 (H)Comment: | 0.70 - 1.30 | EXTERNAL | | | | Testing performed at | mg/dL | LAB | | | | [facility];[address] | | | | | | [address];[place] [address] | | | | + + + + + + | BUN/Creatin | 5Comment: Testing | | EXTERNAL | | | ine Ratio | performed at [facility];[address] | | LAB | | | | [address];[place] | | | | | | [address] | | | | + + + + + + | Calcium | 7.4 (L)Comment: Testing | 8.5 - 10.2 | EXTERNAL | | | | performed at [facility];888 | mg/dL | LAB | | | | [address];[place] | | | | | | [address] | | | | + + + [...] | | | | | | at [facility];[address];[place] [address] | | | | + + + [...] EXTERNAL LAB | | Testing performed at [facility];[address] [facility];[place] [address] MRSA PCR | | | NEGATIVE Testing performed at | | | [facility];[address] [facility];[place] [address] | | + + + + +---------+ [...]
--- OUTSIDE RECORDS SUMMARY | ~2019-05-20 | XMS | Encounter Summary ---
Demographics + + + | Address | [address] | | | [place] [address] | + + + | Home Phone | | + + + | Preferred Language | Unknown | + + + | Marital Status | Unknown | + + + | Oriental Orthodox Affiliation | 1076 | + + [...] Team Providers + +------+ + | Care Sergeant At Arms Name | Role | Phone | + +------+ + PCP | Unavailable | + +------+ + Encounter Details +--------+ + + + + | Date | Type | Department | Care Team | Description | +--------+ + + + + | 05/14/ | Hospital | [facility] | Sowmya Shaikh MD | Fever; Diabetes | | 2011 - | Encounter | [facility] | [address] [facility] | mellitus ([facility]); | | | | CARE FLOOR [address] | [place] [address] | Febrile illness, | | 05/17/ | | [address] | [phone] | acute; ESRD (end | | 2011 | | [place], [place] | | stage renal disease) | | | | [address] | | on dialysis ([facility]); | | | | [phone] | | Diabetes mellitus | | | | | | with ESRD (end-stage | | | | | | renal disease) | | | | | | ([facility]); | | | | [...] | | | | | uncontrolled ([facility]); | | | | | | HTN (hypertension); | | | | | | 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, | | | | | | continuous ([facility]); | | | | | | DVT (deep venous | | | | | | thrombosis) ([facility]); | | | | | | Bacteremia; | | | | | | Hyperphosphatemia; | | | | | | Anemia of chronic | | | | | | kidney failure; ESRD | | | | | | (end stage renal | | | | | | disease) ([facility]); | | | | | | Essential | | | | | | hypertension, | | | | | | benign; Secondary | | | | | | hyperparathyroidism | | | | | | (of renal origin) | | | | | | ([facility]); Bacteremia | | | | [...] 1010 Date of Service: 05/17/12955 Status: Addendum Edger Machine Setter: Carlee Bejarano MD (Physician) Related Notes: Original Note by Carlee Bejarano MD (Physician) filed at 05/17/12 1008 [facility] Service: Hospitalist Discharge Summary Date [...] According to Dr. Escobar blood cultures from [facility] outpatient dialysis unit where he had [...] Location: [facility] ENDOSCOPY; Se rvice: Gastroenterology; Laterality: N/A; Av fistula placement 05/06/2012 Procedure: AV FISTULA; Surgeon: Oskar Meyer MD; Location: [facility] MAIN OR; Service: Vascul ar; [...] 20 mg by mouth daily. ergocalciferol (DRISDOL) 02800 UNITS capsule Take 1 capsule by mouth once a week. 3 ca psule 0 folic acid-vitamin b complex-vitamin r-eevbnjqw-yvvc (DIALYVITE) 3 MG TABS Take 1 table [...] Procedure Component Value Units Date/Time POCT glucose [[id number]] Collected:05/17/12 0537 GLUCOSE,POC SCREEN 88 mg/dL Updated:05/17/12 0735 POCT glucose [[id number]] (Abnormal) Collected:05/16/12 2106 GLUCOSE,POC SCREEN 123 (H) mg/dL Updated:05/16/12 2304 POCT glucose [[id number]] (Abnormal) Collected:05/16/12 1708 GLUCOSE,POC SCREEN 132 (H) mg/dL Updated:05/16/12 1749 POCT glucose [[id number]] (Abnormal) Collected:05/16/12 1125 GLUCOSE,POC SCREEN 208 (H) mg/dL Updated:05/16/12 1657 CBC w/auto diff (reflex to manual) [[id number]] (Abnormal) Collected:05/16/12 0445 WBC 10.3 K/uL Updated:05/16/12 [...] BASOPHILS ABS 0.0 K/uL Renal function panel [[id number]] (Abnormal) Collected:05/16/12444 Specimen Information:Blood Updated:05/16/1251 SODIUM 135 mmol/L POTASSIUM 3.7 mmol/L CHLORIDE 95 (L) mmol/L CO2 25 mmol/L ANION GAP AGAP 18 mmol/L GLUCOSE 106 (H) mg/dL BUN 37 (H) mg/dL CREATININE 6.86 (H) mg/dL CALCIUM 7.5 (L) mg/dL Albumin 2.5 (L) g/dL PHOSPHORUS 3.3 mg/dL EGFR 9 (L) mL/min/1.73m2 POCT glucose [[id number]] (Abnormal) Collected:05/15/12 1140 GLUCOSE,POC SCREEN 173 (H) mg/dL Updated:05/15/12 1340 Urine microscopic only [[id number]] Collected:05/15/12 06 WBC 0-2 /hpf Updated:05/15/12630 RBC 1-5 /hpf EPITHELIAL 1-5 /lpf BACTERIA NONE SEEN Urinalysis [[id number]] (Abnormal) Collected:05/15/12 06 Specimen Information:Urine / Urine, Clean Catch Updated:05/15/12630 COLOR YELLOW CLARITY CLEAR SPECIFIC GRAVITY,URINE 1.020 LEUKOCYTE ESTERASE NEGATIVE NITRITE NEGATIVE UROBILINOGEN 0.2 mg/dL PROTEIN >300 (A) mg/dL PH,URINE 7.5 BLOOD TRACE (A) KETONES NEGATIVE mg/dL BILIRUBIN NEGATIVE GLUCOSE 100 (A) mg/dL Blood culture, 2 of 2 [[id number]] Collected:05/14/122141 Specimen Information:Blood Updated:05/15/12630 Specimen Description BLOOD CULTURE NO GROWTH AT THIS TIME CULTURE Result: Testing performed at [facility];[address] [place] [address] REPORT STATUS PENDING Blood culture, 1 of 2 [[id number]] Collected:05/14/121999 Specimen Information:Blood Updated:05/15/12629 Specimen Description BLOOD CULTURE NO GROWTH AT THIS TIME CULTURE Result: Testing performed at [facility];[address] [place] [address] REPORT STATUS PENDING Basic metabolic panel [[id number]] (Abnormal) Collected:05/14/122243 Specimen Information:Blood Updated:05/14/122320 SODIUM 137 mmol/L POTASSIUM 3.3 (L) mmol/L CHLORIDE 95 (L) mmol/L CO2 31 mmol/L ANION GAP AGAP 15 mmol/L GLUCOSE 150 (H) mg/dL BUN 20 mg/dL CREATININE 4.42 (H) mg/dL BUN/CREAT 5 CALCIUM 7.4 (L) mg/dL EGFR 15 (L) mL/min/1.73m2 Glycohemoglobin A1c [[id number]] (Abnormal) Collected:05/14/122243 Specimen Information:Blood Updated:05/14/122313 HEMOGLOBIN A1C 6.0 % ESTIMATED AVG GLUCOSE 126 (H) mg/dL CBC w/auto diff (reflex to manual) [[id number]] (Abnormal) Collected:05/14/122243 Specimen Information:Blood Updated:05/14/122255 WBC 7.5 [...] BASOPHILS ABS 0.0 K/uL Sedimentation Rate (ESR) [[id number]] (Abnormal) Collected:05/14/121999 Specimen Information:Blood Updated:05/14/122055 ESR 61 (H) mm/Hr CBC with differential [[id number]] (Abnormal) Collected:05/14/121999 Specimen Information:Blood Updated:05/14/122037 WBC 8.5 [...] (H) K/uL MORPHOLOGY 2+ Comprehensive metabolic panel [[id number]] (Abnormal) Collected:05/14/121999 Specimen Information:Blood Updated:05/14/122030 SODIUM 139 [...] U/L EGFR 16 (L) mL/min/1.73m2 C-Reactive Protein [[id number]] (Abnormal) Collected:05/14/121999 Specimen Information:Blood Updated:05/14/122030 CRP 10.0 (H) mg/dL X-ray chest 1 view [[id number]] Collected:05/14/122245 Order Status:Completed Updated:05/14/122252 Narrative: ENRIQUE NOLASCO [...] have HD every MWF. Follow up: [facility] [address] [facility] [address] Make an appointment in 1 week Sarita Escobar DO [address] [facility] [address] [facility] [address] Make an appointment on 05/26/2012 Current Discharge [...] 20 mg by mouth daily. ergocalciferol (DRISDOL) 26735 UNITS capsule Take 1 capsule by mouth once a week. Qty: 3 capsule, Refills: 0 folic acid-vitamin b complex-vitamin k-fipaikxw-pxei (DIALYVITE) 3 MG TABS Take 1 tablet [...] Service: Nephrology Author Type: Physician Filed: 05/17/12 6376 Date of Service: 05/17/121052 Status: Signed Edger Machine Setter: Sean Solorzano MD (Physician) [facility] Service: NEPHROLOGY Progress Note Enrique Potter 47 y.o. [id number] 6624/6624-1 male [facility] Hospital Day: LOS: 3 days SUBJECTIVE [...] hospital. DENIES ANY FEVER TODAY I called [facility] unit and the blood culture on [...] Location: [facility] ENDOSCOPY; Se rvice: Gastroenterology; Laterality: N/A; Av fistula placement 05/06/2012 Procedure: AV FISTULA; Surgeon: Oskar Meyer MD; Location: [facility] MAIN OR; Service: Vascul ar; [...] WITH [employer]; KIDSUNEMPLOYED BEFORE WORKED AT [employer] NONE ETOH QUIT 15 YEARS AGODRUGS: USES [...] chloride 10 mL Intravenous Q8H vitamin B fqskkzi-L-irbuz acid 1 tablet Oral Daily DISCONTD: linezolid [...] AND HYPERTENSIVE NEPHROSCLEROSIS ON HD M-W- AT [facility] HD UNIT UNDER DR COOK [...] DR BEJARANO PT TO CONT HD AT [facility] HD UNDER DR COOK upon D/C [...] 05/17/12911 Date of Service: 05/17/12903 Status: Signed Edger Machine Setter: Sarita Escobar DO (Physician) [facility] Service: Infectious Disease Progress Note [...] chloride 10 mL Intravenous Q8H vitamin B kzskjqc-M-mdilr acid 1 tablet Oral Daily DISCONTD: linezolid [...] 05/17/12513 Date of Service: 05/17/12512 Status: Signed Edger Machine Setter: Carola Albrecht RN (Registered Nurse) No acute [...] 1800 Date of Service: 05/16/121750 Status: Signed Edger Machine Setter: Sean Solorzano MD (Physician) [facility] Service: NEPHROLOGY Progress Note Enrique Potter 47 y.o. [id number] 6624/[id number] male [facility] Hospital Day: LOS: 2 days SUBJECTIVE [...] hospital. DENIES ANY FEVER TODAY I called [facility] unit and the blood culture on [...] Location: [facility] ENDOSCOPY; Se rvice: Gastroenterology; Laterality: N/A; Av fistula placement 05/06/2012 Procedure: AV FISTULA; Surgeon: Oskar Meyer MD; Location: [facility] MAIN OR; Service: Vascul ar; [...] WITH [employer]; KIDSUNEMPLOYED BEFORE WORKED AT [employer] NONE ETOH QUIT 15 YEARS AGODRUGS: USES [...] chloride 10 mL Intravenous Q8H vitamin B hjcagwj-S-fkywt acid 1 tablet Oral Daily Continuous Infusions [...] AND HYPERTENSIVE NEPHROSCLEROSIS ON HD M-- AT [facility] HD UNIT UNDER DR COOK [...] DR BEJARANO PT TO CONT HD AT [facility] HD UNDER DR COOK upon D/C [...] Date of Service: 05/16/12 1012 Status: Signed Edger Machine Setter: Carlee Bejarano MD (Physician) [facility] Service: Hospitalist Progress Note Hospital [...] chloride 10 mL Intravenous Q8H vitamin B roqvuwn-V-ilpxw acid 1 tablet Oral Daily Continuous Infusions [...] Date/Time CBC w/auto diff (reflex to manual) [[id number]] (Abnormal) Collected:05/16/12444 WBC 10.3 K/uL Updated:05/16/12608 RBC [...] BASOPHILS ABS 0.0 K/uL Renal function panel [[id number]] (Abnormal) Collected:05/16/12444 Specimen Information:Blood Updated:05/16/12550 SODIUM 135 mmol/L POTASSIUM 3.7 mmol/L CHLORIDE 95 (L) mmol/L CO2 25 mmol/L ANION GAP AGAP 18 mmol/L GLUCOSE 106 (H) mg/dL BUN 37 (H) mg/dL CREATININE 6.86 (H) mg/dL CALCIUM 7.5 (L) mg/dL Albumin 2.5 (L) g/dL PHOSPHORUS 3.3 mg/dL EGFR 9 (L) mL/min/1.73m2 POCT glucose [[id number]] (Abnormal) Collected:05/15/12 1140 GLUCOSE,POC SCREEN 173 (H) mg/dL Updated:05/15/12 1340 Urine microscopic only [[id number]] Collected:05/15/12 06 WBC 0-2 /hpf Updated:05/15/12 0631 RBC 1-5 /hpf EPITHELIAL 1-5 /lpf BACTERIA NONE SEEN Urinalysis [[id number]] (Abnormal) Collected:05/15/12 06 Specimen Information:Urine / Urine, Clean Catch Updated:05/15/12630 COLOR YELLOW CLARITY CLEAR SPECIFIC GRAVITY,URINE 1.020 LEUKOCYTE ESTERASE NEGATIVE NITRITE NEGATIVE UROBILINOGEN 0.2 mg/dL PROTEIN >300 (A) mg/dL PH,URINE 7.5 BLOOD TRACE (A) KETONES NEGATIVE mg/dL BILIRUBIN NEGATIVE GLUCOSE 100 (A) mg/dL Blood culture, 2 of 2 [[id number]] Collected:05/14/122141 Specimen Information:Blood Updated:05/15/12630 Specimen Description BLOOD CULTURE NO GROWTH AT THIS TIME CULTURE Result: Testing performed at [facility];[address] [place] [address] REPORT STATUS PENDING Blood culture, 1 of 2 [[id number]] Collected:05/14/121999 Specimen Information:Blood Updated:05/15/12629 Specimen Description BLOOD CULTURE NO GROWTH AT THIS TIME CULTURE Result: Testing performed at [facility];[address] [place] [address] REPORT STATUS PENDING Basic metabolic panel [[id number]] (Abnormal) Collected:05/14/122243 Specimen Information:Blood Updated:05/14/122320 SODIUM 137 mmol/L POTASSIUM 3.3 (L) mmol/L CHLORIDE 95 (L) mmol/L CO2 31 mmol/L ANION GAP AGAP 15 mmol/L GLUCOSE 150 (H) mg/dL BUN 20 mg/dL CREATININE 4.42 (H) mg/dL BUN/CREAT 5 CALCIUM 7.4 (L) mg/dL EGFR 15 (L) mL/min/1.73m2 Glycohemoglobin A1c [[id number]] (Abnormal) Collected:05/14/122243 Specimen Information:Blood Updated:05/14/122313 HEMOGLOBIN A1C 6.0 % ESTIMATED AVG GLUCOSE 126 (H) mg/dL CBC w/auto diff (reflex to manual) [[id number]] (Abnormal) Collected:05/14/122243 Specimen Information:Blood Updated:05/14/122255 WBC 7.5 [...] BASOPHILS ABS 0.0 K/uL Sedimentation Rate (ESR) [[id number]] (Abnormal) Collected:05/14/121999 Specimen Information:Blood Updated:05/14/122055 ESR 61 (H) mm/Hr CBC with differential [[id number]] (Abnormal) Collected:05/14/121999 Specimen Information:Blood Updated:05/14/122037 WBC 8.5 [...] (H) K/uL MORPHOLOGY 2+ Comprehensive metabolic panel [[id number]] (Abnormal) Collected:05/14/121999 Specimen Information:Blood Updated:05/14/122030 SODIUM 139 [...] U/L EGFR 16 (L) mL/min/1.73m2 C-Reactive Protein [[id number]] (Abnormal) Collected:05/14/121999 Specimen Information:Blood Updated:05/14/122030 CRP 10.0 (H) mg/dL X-ray chest 1 view [[id number]] Collected:05/14/122245 Order Status:Completed Updated:05/14/122252 Narrative: ENRIQUE POTTER [...] 0915 Date of Service: 05/16/12855 Status: Addendum Edger Machine Setter: Sarita Escobar DO (Physician) Related Notes: Original Note by Sarita Escobar DO (Physician) filed at 05/16/12 0909 [facility] Service: Infectious Disease Progress Note [...] chloride 10 mL Intravenous Q8H vitamin B qqfdzlq-I-fsevu acid 1 tablet Oral Daily Continuous Infusions [...] 05/16/12514 Date of Service: 05/16/12514 Status: Signed Edger Machine Setter: Carola Albrecht RN (Registered Nurse) No changes from assessment. Pt. Slept through out the night. Pt. Denies pain and vital si gns were stable. Zoltan Gray [facility] - 05/15/2012 3:35 PM PSTFormatting of this note might be different from t barbie original. Progress Notes by Zoltan Garcia RN at 05/15/121534 Author: Zoltan Garcia RN Service: (none) Author Type: Registered Nurse Filed: 05/15/121534 Date of Service: 05/15/121534 Status: Signed Edger Machine Setter: Zoltan Garcia RN (Registered Nurse) VSS. Pt. Resting quietly in bed. No acute observations. Will continue monitoring. Pt. Watching football most of the day and resting. Sowmya Daniels MD - 05/15/2012 3:23 PM PST Progress Notes by Sowmya Shaikh MD at 05/15/12 1523 Author: Sowmya Shaikh MD Service: Hospitalist Author Type: Physician Filed: 05/15/12 4590 Date of Service: 05/15/12 152 Status: Addendum Edger Machine Setter: Sowmya Shaikh MD (Physician) Related Notes: Original Note by Sowmya Shaikh MD (Physician) filed at 05/15/12 1530 [facility] Service: Hospitalist Progress Note Enrique Potter 47 y.o. [id number]/[id number] male [facility] Patient Summary: The patient is a [...] chloride 10 mL Intravenous Q8H vitamin B abayrtx-A-dsads acid 1 tablet Oral Daily DISCONTD: ergocalciferol [...] Procedure Component Value Units Date/Time POCT glucose [[id number]] (Abnormal) Collected:05/15/12 1140 GLUCOSE,POC SCREEN 173 (H) mg/dL Updated:05/15/12 1340 Urine microscopic only [[id number]] Collected:05/15/12599 WBC 0-2 /hpf Updated:05/15/12630 RBC 1-5 /hpf EPITHELIAL 1-5 /lpf BACTERIA NONE SEEN Urinalysis [] (Abnormal) Collected:05/15/12599 Specimen Information:Urine / Urine, Clean Catch Updated:05/15/12630 COLOR YELLOW CLARITY CLEAR SPECIFIC GRAVITY,URINE 1.020 LEUKOCYTE ESTERASE NEGATIVE NITRITE NEGATIVE UROBILINOGEN 0.2 mg/dL PROTEIN >300 (A) mg/dL PH,URINE 7.5 BLOOD TRACE (A) KETONES NEGATIVE mg/dL BILIRUBIN NEGATIVE GLUCOSE 100 (A) mg/dL Blood culture, 2 of 2 [[id number]] Collected:05/14/122141 Specimen Information:Blood Updated:05/15/12630 Specimen Description BLOOD CULTURE NO GROWTH AT THIS TIME CULTURE Result: Testing performed at [facility];[address] [place] [address] REPORT STATUS PENDING Blood culture, 1 of 2 [[id number]] Collected:05/14/121999 Specimen Information:Blood Updated:05/15/12629 Specimen Description BLOOD CULTURE NO GROWTH AT THIS TIME CULTURE Result: Testing performed at [facility];[address] [place] [address] REPORT STATUS PENDING Basic metabolic panel [[id number]] (Abnormal) Collected:05/14/12 224 Specimen Information:Blood Updated:05/14/12 232 SODIUM 137 mmol/L POTASSIUM 3.3 (L) mmol/L CHLORIDE 95 (L) mmol/L CO2 31 mmol/L ANION GAP AGAP 15 mmol/L GLUCOSE 150 (H) mg/dL BUN 20 mg/dL CREATININE 4.42 (H) mg/dL BUN/CREAT 5 CALCIUM 7.4 (L) mg/dL EGFR 15 (L) mL/min/1.73m2 Glycohemoglobin A1c [[id number]] (Abnormal) Collected:05/14/122243 Specimen Information:Blood Updated:05/14/122313 HEMOGLOBIN A1C 6.0 % ESTIMATED AVG GLUCOSE 126 (H) mg/dL CBC w/auto diff (reflex to manual) [[id number]] (Abnormal) Collected:05/14/122243 Specimen Information:Blood Updated:05/14/122255 WBC 7.5 [...] BASOPHILS ABS 0.0 K/uL Sedimentation Rate (ESR) [[id number]] (Abnormal) Collected:05/14/121999 Specimen Information:Blood Updated:05/14/122055 ESR 61 (H) mm/Hr CBC with differential [[id number]] (Abnormal) Collected:05/14/121999 Specimen Information:Blood Updated:05/14/122037 WBC 8.5 [...] (H) K/uL MORPHOLOGY 2+ Comprehensive metabolic panel [[id number]] (Abnormal) Collected:05/14/121999 Specimen Information:Blood Updated:05/14/122030 SODIUM 139 [...] U/L EGFR 16 (L) mL/min/1.73m2 C-Reactive Protein [[id number]] (Abnormal) Collected:05/14/121999 Specimen Information:Blood Updated:05/14/122030 CRP 10.0 [...] Service: Nephrology Author Type: Physician Filed: 05/24/12 4040 Date of Service: 05/15/12 5513 Status: Signed Edger Machine Setter: Juan Cook MD (Physician) [facility] Service: NEPHROLOGY Progress Note Enrique Potter 47 y.o. [id number] 6624/6624-1 male [facility] Hospital Day: LOS: 1 day Patient [...] Location: [facility] ENDOSCOPY; Se rvice: Gastroenterology; Laterality: N/A; Av fistula placement 05/06/2012 Procedure: AV FISTULA; Surgeon: Oskar Meyer MD; Location: [facility] MAIN OR; Service: Vascul ar; [...] WITH [employer]; KIDSUNEMPLOYED BEFORE WORKED AT [employer] NONE ETOH QUIT 15 YEARS AGODRUGS: USES [...] chloride 10 mL Intravenous Q8H vitamin B uaealmq-N-ldjyv acid 1 tablet Oral Daily DISCONTD: ergocalciferol [...] TIME CULTURE Value: Testing performed at [facility];[address] [place] [address];[place] [address] REPORT STATUS PENDING C-REACTIVE PROTEIN Collection Time 05/14/12 8:00 PM Component Value Range CRP 10.0 (*) <0.5 mg/dL SEDIMENTATION RATE, AUTOMATED Collection Time 05/14/12 8:00 PM Component Value Range ESR 61 (*) 0 - 15 mm/Hr BLOOD CULTURE, SET 2 Collection Time 05/14/12 9:42 PM Component Value Range Specimen Description BLOOD CULTURE NO GROWTH AT THIS TIME CULTURE Value: Testing performed at [facility];[address] [place] [address];[place] [address] REPORT STATUS PENDING BASIC METABOLIC PANEL Collection [...] 05/15/12652 Date of Service: 05/15/12652 Status: Signed Edger Machine Setter: Carola Albrecht RN (Registered Nurse) No acute changes during the night. Pt slept well and denied any pain. onver quique Transaction, Provider Unknown - 05/15/2012 2:05 AM PST Progress Notes by Carola Albrecht RN at 05/15/12204 Author: Carola Albrecht RN Service: (none) Author Type: Registered Nurse Filed: 05/15/12205 Date of Service: 05/15/12204 Status: Signed Edger Machine Setter: Carola Albrecht RN (Registered Nurse) Notified Dr. Colbert about pt.s K+ level. onver quique Transaction, Provider Unknown - 05/14/2012 10:44 PM PST Progress Notes by Xavier Toro RPH at 05/14/122243 Author: Xavier Toro RPH Service: (none) Author Type: Pharmacist Filed: 05/14/122243 Date of Service: 05/14/122243 Status: Signed Edger Machine Setter: Xavier Toro RPH (Pharmacist) Note ccl 21.2ml/min meds reviewed Pharmacy will follow [facility] 2244 docume nted in this encounter Plan [...] | Testing performed at | | | [address];[place] [address] CULTURE | | | NO GROWTH IN 5 DAYS. | | | Testing performed at [facility];[address] [place] [address] | | | [facility];[place] [address] REPORT STATUS | | | 05/20/2012 FINAL [...] | | | Testing performed at [facility];[address] | | | [facility];[place] [address] REPORT STATUS | | | 05/20/2012 FINAL [...] mellitus with ESRD (end-stage renal disease) ([facility]) Type II or unspecified | | type [...]
--- OUTSIDE RECORDS SUMMARY | ~2019-05-20 | XMS | Encounter Summary ---
Demographics + + + | Address | [address] | | | [place] [address] | + + + | Home Phone [...] + + + | Author | [facility] | | | and [place] | + + + | Organization | [facility] | | [...] Team Providers + +------+ + | Care Technical Writing Lead/Mgr Name | Role | Phone | + [...] | SR | | | | | [phone] | | | +--------+ + + + [...]
--- OUTSIDE RECORDS SUMMARY | ~2019-05-20 | XMS | Encounter Summary ---
Demographics + + + | Address | [address] | | | [place] [address] | + + + | Home Phone [...] Team Providers + +------+ + | Care Spindle Sander Name | Role | Phone | + +------+ + PCP | Unavailable | + +------+ + Encounter Details +--------+ + + + + | Date | Type | Department | Care Team | Description | +--------+ + + + + | 02/09/ | Hospital | [facility] | Oskar Meyer MD | | | 2014 | Encounter | [facility] | [address] | | | | | [address] | [place], [place] | | | | | [place], [place] | [address] | | | | | [address] | [phone] | | | | | [phone] | | | +--------+ + + + [...] | | | Fingerstick | performed at [facility];[address] | | LAB | | | | [address];[place] | | | | | | [address] | | | | + + + [...] | | | Fingerstick | performed at [facility];[address] | | LAB | | | | [address];[place] | | | | | | [address] | | | | + + + [...]
--- OUTSIDE RECORDS SUMMARY | ~2019-05-20 | XMS | Encounter Summary ---
Demographics + + + | Address | [address] | | | [place] [address] | + + + | Home Phone [...] Team Providers + +------+ + | Care Rear Admiral Name | Role | Phone | + +------+ + PCP | Unavailable | + +------+ + Encounter Details +--------+ + + + + | Date | Type | Department | Care Team | Description | +--------+ + + + + | 11/09/ | Hospital | [facility] | PaulaGaldino ortiz | Hyperkalemia; Anemia | | 2013 - | Encounter | [facility] | MD Azeem [address] | of chronic kidney | | | | CARE FLOOR [address] | [address] | failure; ESRD (end | | 11/10/ | | [address] | [place] [address] | stage renal disease) | | 2013 | | [place], [place] | [phone] | on dialysis ([facility]); | | | | [address] | | HTN (hypertension); | | | | [phone] | | Hypoalbuminemia; | | | | | | Hypothyroidism; PUD | | | | | | (peptic ulcer | | | | | | disease); Secondary | | | | | | hyperparathyroidism | | | | | | (of renal origin) | | | | | | ([facility]); Vitamin D | | | | | [...] Summaries by Lei Padgett MD at 11/10/13 2150 Author: Lei Padgett MD Service: (none) Author Type: Physician Filed: 11/11/13 0936 Date of Service: 11/10/13 5916 Status: Signed Senior Report Developer: Lei Padgett MD (Physician) Related Notes: Original Note by Lei Padgett MD (Physician) filed at 11/11/13 0016 [facility] Service: Hospitalist Physician Discharge Summary Patient ID: [...] details. In essence, Mr. Potter presented to [facility] on November 09, 2013, after it was [...] further plans of how to proceed with medical terminologist AV fistula access recreation. The patient was transported home by family members with assistance from our pediatric social worker. Past Medical History: Past Medical [...] W/ EGD; Surgeon: John Singleton MD; Location: [facility] ENDOSCOPY; Se rvice: Gastroenterology; Laterality: N/A; Av fistula placement 05/06/2012 Procedure: AV FISTULA; Surgeon: Oskar Meyer MD; Location: [facility] MAIN OR; Service: Vascul ar; Laterality: Left; Left arm possible right Unlisted procedure arthroscopy shoulder rt , ligaments Knee arthroscopy 07/07/2012 Procedure: KNEE - ARTHROSCOPY; Surgeon: Favio Raza MD; Location: [facility] MAIN OR; ervice: Orthopedics; Laterality: Right; After 1530 Catheter removal 07/07/2012 Procedure: DIALYSIS CATHETER REMOVAL; Surgeon: Oskar Meyer MD; Location: [facility] BEDSIDE [place] OCEDURE; Service: General; Laterality: Right; perm cath Dialysis fistula creation 07/07/2012 Procedure: DIALYSIS CATHETER INSERTION; Surgeon: Oskar Meyer MD; Location: [facility] BEDSIDE PROCEDURE; Service: General; Laterality: Left; temporary dialysis catheter Av fistula repair 07/11/2012 Procedure: AV FISTULA GRAFT REPAIR/REVISION; Surgeon: Oskar Meyer MD; Location: [facility] OR; Service: Vascular; Laterality: Left; Superficialization of brachiobasilic fistula and right IJ perm cath insertion Dialysis fistula creation 07/11/2012 Procedure: DIALYSIS CATHETER INSERTION; Surgeon: Oskar Meyer MD; Location: [facility] MAIN OR; Service: Vascular; Laterality: [...] vein. 3. Plac ement of 19 cm, 14.5-Belizean dual-lumen tunneled palindrome hemodialysis catheter in the [...] of adequa te conscious sedation and independent snf supervision of the conscious sedation was [...] 3. Upper chest radiograph shows dual -lumen, 14.5-Belizean, 19-cm, tunneled dialysis catheter with its tip [...] intervention, as per protocol at this [facility]. The patient was placed supine on the x-ray table. Sonography of the lower neck vei ns revealed widely patent and compressible right jugular vein. Supraclavicular and infracla vicular regions are prepped in the usual sterile fashion. Skin and subcutaneous tissues the n infiltrated with 1% lidocaine. Right external jugular vein was accessed using a micropunc ture needle and exchanged for a 4-Belizean micropuncture sheath over a 0.018 wire. Skin in th e infraclavicular region was infiltrated with 1% lidocaine and a 5-mm skin incision was made . A 14.5-Belizean, dual-lumen, 19-cm tunneled hemodialysis catheter was placed a subcutaneous tunnel using a metallic tunneler. The 4-Belizean sheath was exchanged for a 0.035, 3-mm J-wi re with its tip in the right atrium under fluoroscopy guidance. The skin and subcutaneous t ract was dilated using at 12 and 14-Belizean facial dilators. A 15-Belizean peel-away sheath wa s placed over the [...] portion of the right atrium without incidence. [id number], [id number], [address] Discharge Vitals: Filed Vitals: 11/10/13 0016 11/10/13 [...] Disposition: Home under family care Follow up: [facility] [address] [place] [address] Schedule an appointment as soon as possible for a visit in 1 week Juan Timmons MD [address] [facility] [address] Schedule an appointment as soon as possible [...] nebulizer solution Commonly known as: PROVENTIL ergocalciferol 00544 UNITS capsule Commonly known as: DRISDOL Lei [...] Date of Service: 11/10/13 165 Status: Signed Senior Report Developer: Obdulio Quiroz RN (Registered Nurse) DC instructions given to patient, no questions at this time. Ready for discharge onver quique Transaction, Provider Unknown - 11/10/2013 4:06 PM PDT Nurse Progress Note by Obdulio Quiroz RN at 11/10/13 1606 Author: Obdulio Quiroz RN Service: (none) Author Type: Registered Nurse Filed: 11/10/13 1606 Date of Service: 11/10/13 1606 Status: Signed Senior Report Developer: Obdulio Quiroz RN (Registered Nurse) Per verbal order from Dr. Padgett, LAURITA dc'd. Patient will discharge home, awaiting DC orders. onver quique Transaction, Provider Unknown - 11/10/2013 2:55 PM PDT Progress Notes by Khadra Venegas RD, CDE at 11/10/13 7533 Author: Khadra Venegas RD, CDE Service: (none) Author Type: Compensation Supervisor Filed: 11/10/13 6785 Date of Service: 11/10/13 5205 Status: Signed Senior Report Developer: Khadra Venegas RD, CDE (Compensation Supervisor) Has had several elevated blood sugars here. Recommend: Check ac/hs and start on low dose correctional scale insulin. Khadra Venegas RD, MPH, CDE, Compensation Supervisor 11/10/2013 2:59 PM onver quique Transaction, Provider Unknown - 11/10/2013 2:12 PM PDT Case Management by Macho Abraham MS, [employer] at 11/10/13 1412 Author: Macho Abraham MS, [employer] Service: (none) Author Type: Wood Tool Maker Filed: 11/10/13 1413 Date of Service: 11/10/131411 Status: Signed Senior Report Developer: Macho Abraham MS, [employer] (Wood Tool Maker) 11/10/13 140 Discharge Planning Evaluation Admitting Diagnosis Hyperkalemia Readmission [...] with no needs. Pt is established to [facility] [place] [facility] and dialysis in [place] Power of Leather Coverer No Anticipated Discharge Plan Post Acute Care Needs None at this time Plan communicated to patient/family Yes Resources Financial concerns No Transportation issues No Patient/Family concerns Yes;Comment (see chart note re: transport) Anticipated Disposition Facility Type Other (Comment) (Home) Discharge planning: CM received referral that pt's son is requesting a gas voucher for ret urn to home in [place]. He states they are on fumes and have access to no money . Pt's wif e and son report that they drove [facility] urgently and brought nothing with them. T he family has also asked for meals while pt has been here. Son states that they have friends in [place] but they are not answering their phone and they have no money. CM reviewed chart a nd pt's was given a gas voucher on October 28 for $30. Pt does have access to [facility] transport services and CM confirmed pt's eligibility. Pt can have [place] trans port him from [place] to [facility] and vice versa. Cm also confirmed that pt has eligibility for mile age reimbursement , so in the future the patient can have family transport if he wants and t barbiey can be reimbursed for gas based on mileage. CM provided pt and family with the phone miki dao. Educated pt that [facility] would not be able to continue to [...] pt has option for transport through his [place] Medicaid and he can have transport should his extended family not be able to afford v isiting . Patient's PCP is: [facility] Patient's insurance:Medicare, Medicaid, [employer] [facility] Coverage concerns: none Medication coverage/concerns: none [...] reported. Anticipated DCP: Return to home in [place] Macho Abraham onver quique Castillo, Provider Unknown - 11/10/2013 1:30 AM PDT Progress Notes by Carmina Lara RPH at 11/10/13129 Author: Carmina Lara RPH Service: (none) Author Type: Pharmacist Filed: 11/10/13129 Date of Service: 11/10/13129 Status: Signed Senior Report Developer: Carmina Lara RPH (Pharmacist) Clinical Pharmacy Note: [...] EXTERNAL | | | | performed at [facility], [address] | | LAB | | | | [address], | | | | | | [place] [address] | | | | + + + + + + | RED CELL | 3.46 (L)Comment: Testing | 4.20 - 5.70 | EXTERNAL | | | COUNT | performed at [facility], [address] | M/uL | LAB | | | | [address], | | | | | | [place] [address] | | | | + + + + + + | Hgb | 11.5 (L)Comment: Testing | 13.2 - 17.0 | EXTERNAL | | | | performed at [facility], [address] | g/dL | LAB | | | | [address], | | | | | | [place] [address] | | | | + + + + + + | Hematocrit, | 34.1 (L)Comment: Testing | 39.0 - 50.0 % | EXTERNAL | | | POC | performed at [facility], [address] | | LAB | | | | [address], | | | | | | [place] [address] | | | | + + + + + + | MCV | 98.6Comment: Testing | 80.0 - 100.0 fl | EXTERNAL | | | | performed at [facility], [address] | | LAB | | | | [address], | | | | | | [place] [address] | | | | + + + + + + | MCH | 33.2Comment: Testing | 27.0 - 34.0 pg | EXTERNAL | | | | performed at [facility], [address] | | LAB | | | | [address], | | | | | | [place] [address] | | | | + + + + + + | MCHC | 33.7Comment: Testing | 32.0 - 35.5 | EXTERNAL | | | | performed at [facility], [address] | g/dL | LAB | | | | [address], | | | | | | [place] [address] | | | | + + + + + + | RDW-CV | 51.2Comment: Testing | 37 - 53 fl | EXTERNAL | | | | performed at [facility], [address] | | LAB | | | | [address], | | | | | | [place] [address] | | | | + + + + + + | Platelet | 174Comment: Testing | 150 - 400 K/uL | EXTERNAL | | | Count | performed at [facility], [address] | | LAB | | | Plasma | [address], | | | | | | [place] [address] | | | | + + + + + + | MPV | 7.4Comment: Testing | fl | EXTERNAL | | | | performed at [facility], [address] | | LAB | | | | [address], | | | | | | [place] [address] | | | | + + + + + + | Differentia | AUTOMATEDComment: | | EXTERNAL | | | l Type | Testing performed at | | LAB | | | | [facility], [address] | | | | | | [place] | | | | | | [address] | | | | + + + + + + | % Segmented | 76.3Comment: Testing | % | EXTERNAL | | | | performed at [facility], [address] | | LAB | | | Neutrophils | [address], | | | | | | [place] [address] | | | | + + + + + + | % | 15.1Comment: Testing | % | EXTERNAL | | | Lymphocytes | performed at [facility], [address] | | LAB | | | | [address], | | | | | | [place] [address] | | | | + + + + + + | % Monocytes | 6.7Comment: Testing | % | EXTERNAL | | | | performed at [facility], [address] | | LAB | | | | [address], | | | | | | [place] [address] | | | | + + + + + + | % | 1.5Comment: Testing | % | EXTERNAL | | | Eosinophils | performed at [facility], [address] | | LAB | | | | [address], | | | | | | [place] [address] | | | | + + + + + + | % Basophils | 0.4Comment: Testing | % | EXTERNAL | | | | performed at [facility], [address] | | LAB | | | | [address], | | | | | | [place] [address] | | | | + + + + + + | Absolute | 9.1 (H)Comment: Testing | 1.9 - 7.4 K/uL | EXTERNAL | | | Segmented | performed at [facility], [address] | | LAB | | | Neutrophils | [address], | | | | | | [place] [address] | | | | + + + + + + | Absolute | 1.8Comment: Testing | 1.0 - 3.9 K/uL | EXTERNAL | | | Lymphocytes | performed at [facility], [address] | | LAB | | | | [address], | | | | | | [place] [address] | | | | + + + + + + | Absolute | 0.8Comment: Testing | 0 - 0.8 K/uL | EXTERNAL | | | Monocytes | performed at [facility], [address] | | LAB | | | | [address], | | | | | | [place] [address] | | | | + + + + + + | Absolute | 0.2Comment: Testing | 0 - 0.5 K/uL | EXTERNAL | | | Eosinophils | performed at [facility], [address] | | LAB | | | | [address], | | | | | | [place] [address] | | | | + + + + + + | Absolute | 0.0Comment: Testing | 0 - 0.1 K/uL | EXTERNAL | | | Basophils | performed at [facility], [address] | | LAB | | | | [address], | | | | | | [place] [address] | | | | + + + [...] EXTERNAL | | | | performed at [facility], [address] | | LAB | | | | [address], | | | | | | [place] [address] | | | | + + + [...] EXTERNAL | | | | performed at [facility], [address] | | LAB | | | | [address], | | | | | | [place] [address] | | | | + + + [...] | | | | | performed at [facility], [address] | | | | | | [address] [facility], | | | | | | [place] [address] | | | | + + + [...] | | | | | performed at [facility], [address] | | | | | | [facility], | | | | | | [place] [address] | | | | + + + [...] | | | | | [place] [address] | | | | + + + + + + | K | 4.6Comment: Testing | 3.5 - 4.9 | EXTERNAL | | | | performed at [facility], [address] | mmol/L | LAB | | | | [address], | | | | | | [place] [address] | | | | + + + + + + | Cl | 101Comment: Testing | 99 - 109 mmol/L | EXTERNAL | | | | performed at [facility], [address] | | LAB | | | | [address], | | | | | | [place] [address] | | | | + + + + + + | CO2 | 19 (L)Comment: Testing | 23 - 32 mmol/L | EXTERNAL | | | | performed at [facility], [address] | | LAB | | | | [address], | | | | | | [place] [address] | | | | + + + + + + | Anion Gap | 18Comment: Testing | 5 - 20 mmol/L | EXTERNAL | | | | performed at [facility], [address] | | LAB | | | | [address], | | | | | | [place], [place] [address] | | | | + + + + + + | Glucose, | 205 (H)Comment: Testing | 65 - 99 mg/dL | EXTERNAL | | | Fasting | performed at [facility], [address] | | LAB | | | | [address], | | | | | | [place], [place] [address] | | | | + + + + + + | BUN | 78 (H)Comment: Testing | 8 - 25 mg/dL | EXTERNAL | | | | performed at [facility], [address] | | LAB | | | | [address], | | | | | | [place] [address] | | | | + + + + + + | Creatinine | 9.22 (H)Comment: Testing | 0.70 - 1.30 | EXTERNAL | | | | performed at [facility], [address] | mg/dL | LAB | | | | [address], | | | | | | [place] [address] | | | | + + + + + + | BUN/Creatin | 8Comment: Testing | | EXTERNAL | | | ine Ratio | performed at [facility], [address] | | LAB | | | | [address], | | | | | | [place] [address] | | | | + + + + + + | Calcium | 8.7Comment: Testing | 8.5 - 10.2 | EXTERNAL | | | | performed at [facility], [address] | mg/dL | LAB | | | | [address], | | | | | | [place] [address] | | | | + + + + + + | Protein, | 6.0 (L)Comment: Testing | 6.3 - 8.2 g/dL | EXTERNAL | | | Total | performed at [facility], [address] | | LAB | | | | [address], | | | | | | [place] [address] | | | | + + + + + + | Albumin | 3.5 (L)Comment: Testing | 3.6 - 5.0 g/dL | EXTERNAL | | | | performed at [facility], [address] | | LAB | | | | [address], | | | | | | [place] [address] | | | | + + + + + + | Globulin | 2.5Comment: Testing | 1.3 - 4.9 g/dL | EXTERNAL | | | | performed at [facility], [address] | | LAB | | | | [address], | | | | | | [place] [address] | | | | + + + + + + | A/G Ratio | 1.4Comment: Testing | 1.0 - 2.4 | EXTERNAL | | | | performed at [facility], [address] | | LAB | | | | [address], | | | | | | [place] [address] | | | | + + + + + + | Bilirubin | 0.6Comment: Testing | 0.1 - 1.5 mg/dL | EXTERNAL | | | Total | performed at [facility], [address] | | LAB | | | [address], | | | | | | [place] [address] | | | | + + + + + + | ALP, | 122 (H)Comment: Testing | 35 - 115 U/L | EXTERNAL | | | External | performed at [facility], [address] | | LAB | | | | [address], | | | | | | [place] [address] | | | | + + + + + + | AST | 18Comment: Testing | 10 - 45 U/L | EXTERNAL | | | | performed at [facility], [address] | | LAB | | | | [address], | | | | | | [place] [address] | | | | + + + + + + | ALT | 22Comment: Testing | 10 - 65 U/L | EXTERNAL | | | | performed at [facility], [address] | | LAB | | | | [address] [facility], | | | | | | [place] [address] | | | | + + + [...] | | | | | | at [facility], [address] | | | | | | [address] [facility], | | | | | | [place] [address] | | | | + + + [...] EXTERNAL | | | | performed at [facility];[address] | | LAB | | | | [address];[place] | | | | | | [address] | | | | + + + + + + | RED CELL | 3.73 (L)Comment: Testing | 4.20 - 5.70 | EXTERNAL | | | COUNT | performed at [facility];[address] | M/uL | LAB | | | | [address];[place] | | | | | | [address] | | | | + + + + + + | Hgb | 12.2 (L)Comment: Testing | 13.2 - 17.0 | EXTERNAL | | | | performed at [facility];[address] | g/dL | LAB | | | | [address];[place] | | | | | | [address] | | | | + + + + + + | Hematocrit, | 36.4 (L)Comment: Testing | 39.0 - 50.0 % | EXTERNAL | | | POC | performed at [facility];[address] | | LAB | | | | [address];[place] | | | | | | [address] | | | | + + + + + + | MCV | 97.4Comment: Testing | 80.0 - 100.0 fl | EXTERNAL | | | | performed at [facility];[address] | | LAB | | | | [address];[place] | | | | | | [address] | | | | + + + + + + | MCH | 32.7Comment: Testing | 27.0 - 34.0 pg | EXTERNAL | | | | performed at [facility];[address] | | LAB | | | | [address];[place] | | | | | | [address] | | | | + + + + + + | MCHC | 33.6Comment: Testing | 32.0 - 35.5 | EXTERNAL | | | | performed at [facility];[address] | g/dL | LAB | | | | [address];[place] | | | | | | [address] | | | | + + + + + + | RDW-CV | 50.8Comment: Testing | 37 - 53 fl | EXTERNAL | | | | performed at [facility];[address] | | LAB | | | | [address];[place] | | | | | | [address] | | | | + + + + + + | Platelet | 202Comment: Testing | 150 - 400 K/uL | EXTERNAL | | | Count | performed at [facility];[address] | | LAB | | | Plasma | [address];[place] | | | | | | [address] | | | | + + + + + + | MPV | 7.3Comment: Testing | fl | EXTERNAL | | | | performed at [facility];[address] | | LAB | | | | [address];[place] | | | | | | [address] | | | | + + + + + + | Differentia | AUTOMATEDComment: | | EXTERNAL | | | l Type | Testing performed at | | LAB | | | | [facility];[address];[place] [address] | | | | + + + + + + | % Segmented | 85.5Comment: Testing | % | EXTERNAL | | | | performed at [facility];[address] | | LAB | | | Neutrophils | [address];[place] | | | | | | [address] | | | | + + + + + + | % | 9.5Comment: Testing | % | EXTERNAL | | | Lymphocytes | performed at [facility];[address] | | LAB | | | | [address];[place] | | | | | | [address] | | | | + + + + + + | % Monocytes | 4.5Comment: Testing | % | EXTERNAL | | | | performed at [facility];[address] | | LAB | | | | [address];[place] | | | | | | [address] | | | | + + + + + + | % | 0.3Comment: Testing | % | EXTERNAL | | | Eosinophils | performed at [facility];[address] | | LAB | | | | [address];[place] | | | | | | [address] | | | | + + + + + + | % Basophils | 0.2Comment: Testing | % | EXTERNAL | | | | performed at [facility];[address] | | LAB | | | | [address];[place] | | | | | | [address] | | | | + + + + + + | Absolute | 11.5 (H)Comment: Testing | 1.9 - 7.4 K/uL | EXTERNAL | | | Segmented | performed at [facility];[address] | | LAB | | | Neutrophils | [address];[place] | | | | | | [address] | | | | + + + + + + | Absolute | 1.3Comment: Testing | 1.0 - 3.9 K/uL | EXTERNAL | | | Lymphocytes | performed at [facility];[address] | | LAB | | | | [address];[place] | | | | | | [address] | | | | + + + + + + | Absolute | 0.6Comment: Testing | 0 - 0.8 K/uL | EXTERNAL | | | Monocytes | performed at [facility];[address] | | LAB | | | | [address];[place] | | | | | | [address] | | | | + + + + + + | Absolute | 0.0Comment: Testing | 0 - 0.5 K/uL | EXTERNAL | | | Eosinophils | performed at [facility];[address] | | LAB | | | | [address];[place] | | | | | | [address] | | | | + + + + + + | Absolute | 0.0Comment: Testing | 0 - 0.1 K/uL | EXTERNAL | | | Basophils | performed at [facility];[address] | | LAB | | | | [address];[place] | | | | | | [address] | | | | + + + + + + | Platelet | ADEQUATEComment: Testing | | EXTERNAL | | | Estimate | performed at [facility];[address] | | LAB | | | | [address];[place] | | | | | | [address] | | | | + + + + + + | Differentia | SLIDE SCANNED, AGREES | | EXTERNAL | | | l Comments | WITH AUTOMATED | | LAB | | | | RESULTS.Comment: Testing | | | | | | performed at [facility];[address] | | | | | | [address];[place] | | | | | | [address] | | | | + + + + + + | RBC | RBC AND PLT MORPHOLOGY | | EXTERNAL | | | Morphology | APPEAR NORMALComment: | | LAB | | | | Testing performed at | | | | | | [facility];[address];[place] [address] | | | | + + + [...] EXTERNAL | | | | performed at [facility];[address] | mmol/L | LAB | | | | [address];[place] | | | | | | [address] | | | | + + + + + + | K | 5.7 (H)Comment: Testing | 3.5 - 4.9 | EXTERNAL | | | | performed at [facility];[address] | mmol/L | LAB | | | | [address];[place] | | | | | | [address] | | | | + + + + + + | Cl | 98 (L)Comment: Testing | 99 - 109 mmol/L | EXTERNAL | | | | performed at [facility];[address] | | LAB | | | | [address];[place] | | | | | | [address] | | | | + + + + + + | CO2 | 22 (L)Comment: Testing | 23 - 32 mmol/L | EXTERNAL | | | | performed at [facility];[address] | | LAB | | | | [address];[place] | | | | | | [address] | | | | + + + + + + | Anion Gap | 19Comment: Testing | 5 - 20 mmol/L | EXTERNAL | | | | performed at [facility];[address] | | LAB | | | | [address];[place] | | | | | | [address] | | | | + + + + + + | Glucose, | 201 (H)Comment: Testing | 65 - 99 mg/dL | EXTERNAL | | | Fasting | performed at [facility] [place];[address] | | LAB | | | | [address];[place] [place] | | | | | | [address] | | | | + + + + + + | BUN | 74 (H)Comment: Testing | 8 - 25 mg/dL | EXTERNAL | | | | performed at [facility];[address] | | LAB | | | | [address];[place] [place] | | | | | | [address] | | | | + + + + + + | Creatinine | 9.66 (H)Comment: Testing | 0.70 - 1.30 | EXTERNAL | | | | performed at [facility] [place];888 | mg/dL | LAB | | | | [address];[place] [place] | | | | | | [address] | | | | + + + + + + | BUN/Creatin | 8Comment: Testing | | EXTERNAL | | | ine Ratio | performed at [facility];[address] | | LAB | | | | [address];[place] | | | | | | [address] | | | | + + + + + + | Calcium | 8.1 (L)Comment: Testing | 8.5 - 10.2 | EXTERNAL | | | | performed at [facility];888 | mg/dL | LAB | | | | [address];[place] | | | | | | [address] | | | | + + + + + + | Protein, | 6.9Comment: Testing | 6.3 - 8.2 g/dL | EXTERNAL | | | Total | performed at [facility];[address] | | LAB | | | | [address];[place] | | | | | | [address] | | | | + + + + + + | Albumin | 3.4 (L)Comment: Testing | 3.6 - 5.0 g/dL | EXTERNAL | | | | performed at [facility];[address] | | LAB | | | | [address];[place] | | | | | | [address] | | | | + + + + + + | Globulin | 3.5Comment: Testing | 1.3 - 4.9 g/dL | EXTERNAL | | | | performed at [facility];[address] | | LAB | | | | [address];[place] | | | | | | [address] | | | | + + + + + + | A/G Ratio | 1.0Comment: Testing | 1.0 - 2.4 | EXTERNAL | | | | performed at [facility];[address] | | LAB | | | | [address];[place] | | | | | | [address] | | | | + + + + + + | Bilirubin | 0.6Comment: Testing | 0.1 - 1.5 mg/dL | EXTERNAL | | | Total | performed at [facility];[address] | | LAB | | | | [address];[place] | | | | | | [address] | | | | + + + + + + | ALP, | 172 (H)Comment: Testing | 35 - 115 U/L | EXTERNAL | | | External | performed at [facility];[address] | | LAB | | | | [address];[place] | | | | | | [address] | | | | + + + + + + | AST | 18Comment: Testing | 10 - 45 U/L | EXTERNAL | | | | performed at [facility];[address] | | LAB | | | | [address];[place] | | | | | | [address] | | | | + + + + + + | ALT | 24Comment: Testing | 10 - 65 U/L | EXTERNAL | | | | performed at [facility];[address] | | LAB | | | | [address];[place], [place] | | | | | | [address] | | | | + + + [...] | | | | | | at [facility];[address] [place] [address] | | | | | | vd;[place] [address] | | | | + + + [...]
--- OUTSIDE RECORDS SUMMARY | ~2019-05-20 | XMS | Encounter Summary ---
Demographics + + + | Address | [address] | | | [place] [address] | + + + | Home Phone | | + + + | Preferred Language | Unknown | + + + | Marital Status | Unknown | + + + | Shinto Affiliation | [id number] | + + + [...] Team Providers + +------+ + | Care Cleaner And Trimmer Name | Role | Phone | + +------+ + PCP | Unavailable | + +------+ + Encounter Details +--------+ + + + + | Date | Type | Department | Care Team | Description | +--------+ + + + + | 07/22/ | Hospital | [facility] | Vaishnavi Edward MD | MRSA infection; | | 2018 - | Encounter | [facility] | [address] | Complication of AV | | | | CARE FLOOR [address] | [place] [address] | dialysis fistula, | | 07/25/ | | [address] | [phone] | initial encounter; | | 2017 | | [place], [place] | | End stage renal | | | | [address] | | failure on dialysis | | | | [phone] | | ([facility]); Infection of | | | | [...] Service: Hospitalist Author Type: Physician Filed: 07/25/17 1510 Date of Service: 07/25/17917 Status: Addendum Welding Machine Setter: Albino Altamirano MD (Physician) Related Notes: Original Note by Albino Altamirano MD (Physician) filed at 07/25/17 1373 [facility] Service: Hospitalist Discharge Summary Date of Admission: [...] during this stay. He was advised to c omply with outpatient HD and vanco dosing. Dr. [...] CL 98* 98* 99 97* CO2 29 9* 9* BUN 25 41* 96* [...] Incision Site) Follow up: Juana Kwok MD [address] [place] [address] [id number] Schedule an appointment as soon as possible for a visit in 1 week post hospital [place] [address] [facility] [address] Medication List CHANGE how you take these [...] These medications were sent to [facility] [facility] [place] - [address] [facility] [address] carvedilol 3.125 MG tablet Discharge took 35 minutes, to include final examination, discussion of admission, and prepa ration of prescriptions, instructions for on-going care, follow-up and documentation of disc harge summary. 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, [employer], used which may contain error for similar [...] Pharmacy Note by Chela Boyle RPH at 07/25/17 1210 Author: Chela Boyle RPH Service: Pharmacy Author Type: Pharmacist Filed: 07/25/17 1210 Date of Service: 07/25/171209 Status: Signed Welding Machine Setter: Chela Boyle RPH (Pharmacist) Vancomycin Monitoring [...] Date of Service: 07/25/17 1045 Status: Signed Welding Machine Setter: Heather Zavaleta RN (Registered Nurse) Went over discharge instructions with pt and , pt said he understood what appointments to follow up with and that no changes were made to his medications so he didn't need to fill any prescriptions. IV was removed. Pt is ready for discharge, just waiting transportation t o show up.Heather Zavaleta RN onver quique [place], Provider Unknown - 07/25/2017 9:22 AM PST Case Management by Devaughn Mendoza RN at 07/25/17921 Author: Devaughn Mendoza RN Service: (none) Author Type: Registered Nurse Filed: 07/25/17 1147 Date of Service: 07/25/17921 Status: Addendum Welding Machine Setter: Devaughn Mendoza RN (Registered Nurse) Related Notes: Original Note by Devaughn Mendoza RN (Registered Nurse) filed at 07/25/17 57 9:22 AM Called and left a message for Klaudia, community health nurse at [facility]. Letting her kno w of today's discharge. I will set up transportation with [employer]. 9:55 AM Spoke with Klaudia at [facility]. Updated her on discharge plan. No chages to medication ac cording to AVS. I called [place] [employer]. They will schedule a ride [...] 1104 Date of Service: 07/25/17855 Status: Signed Welding Machine Setter: Juana Kwok MD (Physician) [facility] Service: Nephrology Progress Note Hospital Problem List: [...] fistula Admitted with: same. 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 JUANA KWOK MD 07/25/2017 [employer]version [employer], Provider Unknown - 07/24/2017 2:22 PM PST Case Management by Devaughn Mendoza RN at 07/24/17 1422 Author: Devaughn Mendoza RN Service: (none) Author Type: Registered Nurse Filed: 07/24/17 1424 Date of Service: 07/24/17 1422 Status: Signed Welding Machine Setter: Devaughn Mendoza RN (Registered Nurse) 2:22 PM Attended rounds with Dr. Altamirano. Enrique will need another 24-48 hours in the hospital. Plan is to return home with his to [place]. Will need assistance in getting transportati on. Albino Diamond MD - 07/24/2017 11:30 AM PST Progress Notes by Albino Altamirano MD at 07/24/17 1130 Author: Albino Altamirano MD Service: Hospitalist Author Type: Physician Filed: 07/24/17 8388 Date of Service: 07/24/17 1130 Status: Signed Welding Machine Setter: Albino Altamirano MD (Physician) [facility] Service: Hospitalist [...] Inpatient. Code Status: Full Code 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, [employer], used which may contain error for similar [...] 07/24/17854 Date of Service: 07/24/17854 Status: Signed Welding Machine Setter: Reba Roldan RPH (Pharmacist) Vancomycin Monitoring [...] HD dosing protocol 07/24/2017 8:51 AM Pharmacist: Rbea Roldan onver quique Transaction, Provider Unknown - 07/23/2017 8:24 PM PST Progress Notes by Ambika Hanson RPH at 07/23/172023 Author: Ambika Hanson RPH Service: Pharmacy Author Type: Pharmacist Filed: 07/23/172023 Date of Service: 07/23/172023 Status: Signed Welding Machine Setter: Ambika Hanson RPH (Pharmacist) HD patient so famotidine 20mg po changed to once daily onver quique Transaction, Provider Unknown - 07/23/2017 6:14 PM PST Progress Notes by Camilo Samson RN at 07/23/171813 Author: Camilo Samson RN Service: (none) Author Type: Registered Nurse Filed: 07/23/171813 Date of Service: 07/23/171813 Status: Signed Welding Machine Setter: Camilo Samson RN (Registered Nurse) Pt received HD with 1L taken off. No acutre changes this shift. Camilo Samson RN Albino Diamond MD - 07/23/2017 2:36 PM PST Progress Notes by Albino Altamirano MD at 07/23/17 1436 Author: Albino Altamirano MD Service: Hospitalist Author Type: Physician Filed: 07/23/172016 Date of Service: 07/23/17 1436 Status: Signed Welding Machine Setter: Albino Altamirano MD (Physician) [facility] Service: Hospitalist [...] 83 80 81 83 Resp: 18 16 Temp: TempSrc: SpO2: 100% 93% [...] Inpatient. 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 She just want ed to make herself available if there is any discharge needs that she could help with. onver quique Transaction, Provider Unknown - 07/23/2017 10:19 AM PST Case Management by Devaughn Mendoza RN at 07/23/17 1019 Author: Devaughn Mendoza RN Service: (none) Author Type: Registered Nurse Filed: 07/23/17 1022 Date of Service: 07/23/17 1019 Status: Signed Welding Machine Setter: Devaughn Mendoza RN (Registered Nurse) 07/23/17 1017 Discharge Planning Evaluation Admitting Diagnosis AV fistula infection Readmission No Living Arrangements Spouse/significant other Support Systems Spouse/significant other Type of Residence Private residence Independent with ADL's Yes Independent with Mobility Yes Home Care Services No Caregiver after Discharge No Mental Status Oriented Prior functional status Independent Power of Container Finisher No Anticipated Discharge Plan Post Acute Care [...] Pt is a 52 y.o., male from [place], [place]. He lives with his and he get dialysis three times a week(--) in [facility]. He does not use any other DME equipment. Patient's PCP is:Andry Deng MD Patient's insurance:Medicare/Medicaid/[employer] Coverage concerns: no Medication coverage/concerns:no Rx Bedside [...] Infectious Disease Author Type: Registered Nurse Filed: 07/23/1757 Date of Service: 07/23/17855 Status: Signed Welding Machine Setter: Shira Werner RN (Registered Nurse) Infection Prevention Note: Pt with a nasal PCR positive for MRSA. Contact Isolation precautions required for this hosp italization . Thank you! Shira Werner RN, BSN, [facility] Infection Control Coord [phone] onver quique Transaction, Provider Unknown - 07/22/2017 9:29 PM PST Pharmacy Note by Chela Boyle [facility] at [id number] Author: Chela Boyle RPH Service: Pharmacy Author Type: Pharmacist Filed: 07/22/172128 Date of Service: 07/22/172128 Status: Signed Welding Machine Setter: Chela Boyle RPH (Pharmacist) Initiation of [...] Chela Boyle 07/22/2017 9:27 PM onver quique Castillo, Provider Unknown - 07/22/2017 9:07 PM PST Pharmacy Note by Chela Boyle RPH at 07/22/172106 Author: Chela Boyle RPH Service: Pharmacy Author Type: Pharmacist Filed: 07/22/172106 Date of Service: 07/22/172106 Status: Signed Welding Machine Setter: Chela Boyle RPH (Pharmacist) Renal Dosing Monitoring: Enrique Potter 52 y.o. male Pharmacy dosing for renal function per Dr. Vaishnavi Edward Serum creatinine: 12 mg/dL High 07/22/17 1430 Estimated creatinine clearance: 7.2 mL/min No changes needed at this time. Pharmacy will continue monitoring patient for appropriate dosing per renal function. 07/22/2017 9:06 PM Pharmacist: Chela Boyle docume nted in this encounter Plan of [...] | | | Fingerstick | performed at [facility];888 | | LAB | | | | [place] | | | | | | [address] | | | | + + + [...] + + + | RED CELL | 4.38 | 4.20 - 5.70 | EXTERNAL | | | COUNT | | M/uL | LAB | | + + + + + + | Hgb | 13.1 (L) | 13.2 - 17.0 [...] at [facility], [address] | [address] | LAB | | | | [place], | | | | | | [place] [address] | | | | + + + [...] W | | | | | | [facility], | | | | | | [place] [address] | | | | + + + [...] | | | Fingerstick | performed at [facility];888 | | LAB | | | | [address];[place] | | | | | | [address] | | | | + + + [...] + + + + | Clarity | HAZY | | EXTERNAL | | | | | | LAB | | + + + + + + | Specific | 1.012 | 1.002 - 1.030 | EXTERNAL | | | [place] | | | LAB | | + [...] + + + + + + | MUCUS UA | 1+ | | EXTERNAL | | | | | | LAB | | + + + + + + | AMORPHOUS | 1+Comment: Testing | | EXTERNAL | | | CRYSTAL | performed at [facility];888 | | LAB | | | | [address];[place] | | | | | | [address] | | | | + + + [...] | | | Fingerstick | performed at [facility];888 | | LAB | | | | [address] [place] | | | | | | [address] | | | | + + + [...] | | | Fingerstick | performed at [facility];888 | | LAB | | | | [address];[place] | | | | | | [address] | | | | + + + [...] | | | Fingerstick | performed at [facility];888 | | LAB | | | | [address];[place] | | | | | | [address] | | | | + + + [...] | | | Fingerstick | performed at [facility];888 | | LAB | | | | [address];[place], [place] | | | | | | [address] [...] + + + | RED CELL | 4.20 | 4.20 - 5.70 | [...] at [facility], [address] | K/u[address] | LAB | | | | [address] [place], | | | | | | [place] [address] | | | | + + + [...] | | | | | [place] [address] | | | | + + [...] W | | | | | | [facility], | | | | | | [place] [address] | | | | + + + [...] | | | Fingerstick | performed at [facility] | | LAB | | | | [address];[place] | | | | | | [address] | | | | + + + [...] | | | Fingerstick | performed at [facility];888 | | LAB | | | | [address];[place], [place] | | | | | | [address] | | | | + + + [...] at | | | | | | [facility], [address] [facility] | | | | | | [place] | | | | | | [address] | | | | + + + [...] | | | Fingerstick | performed at [facility];888 | | LAB | | | | [address];[place], [place] | | | | | | [address] | | | | + + + [...] + + + | RED CELL | 4.23 | 4.20 - 5.70 | EXTERNAL | | | COUNT | | M/uL | LAB | | + + + + + + | Hgb | 12.8 (L) | 13.2 - 17.0 [...] at [facility], [address] | K/uL | LAB | | | | [place], | | | | | | [place] [address] | | | | + + + [...] [place], | | | | | | [place] [address] | | | | + + + [...] | | | READ BACK BY: TRIP C @ | | LAB | | | | 7RP 6:57 18 DH | | | | | | TRIP C @ 7RP 6:57 118 DH | | | | | | [...] W | | | | | | [facility], | | | | | | [place] [address] | | | | + + + [...] | | | Fingerstick | performed at [facility];888 | | LAB | | | | [address];[place] | | | | | | [address] | | | | + + + [...] | | | PCRAbnormal Testing performed at [facility];[address] [place] [address];[place] [address] | | + + + + +---------+ [...] EXTERNAL | | | | performed at [facility];[address] | | LAB | | | | [address];[place], [place] | | | | | | [address] | | | | + + + [...] EXTERNAL | | | | performed at [facility];[address] | | LAB | | | | [address];[place], [place] | | | | | | [address] | | | | + + + [...] + + + | RED CELL | 4.22 | 4.20 - 5.70 | EXTERNAL | | | COUNT | | M/uL | LAB | | + + + + + + | Hgb | 12.4 (L) | 13.2 - 17.0 [...] | | | Basophils | performed at [facility];[address] | K/uL | LAB | | | | [address];[place] | | | | | | [address] | | | | + + + [...] EXTERNAL | | | | performed at [facility];888 | mmol/L | LAB | | | | [address];[place], [place] | | | | | | [address] | | | | + + + [...] IN | | | | | | [facility] ROOM AT [address] | | | [...] | | | | | | at [facility];[address] [place] [address] | | | | | | [facility];[place] [address] | | | | + + + [...]
--- OUTSIDE RECORDS SUMMARY | ~2019-05-20 | XMS | Encounter Summary ---
Demographics + + + | Address | [address] | | | [place] [address] | + + + | Home Phone [...] Team Providers + +------+ + | Care Loading Shovel Oiler Name | Role | Phone | + +------+ + | Andry Deng DO | PCP | | + +------+ + Encounter Details +--------+ + + + + | Date | Type | Department | Care Team | Description | +--------+ + + + + | 04/02/ | Orders Only | [facility] | Conversion | | | 2015 | | NEPHROLOGY NICOLASA | Transaction, | | | | | [address] [facility] | Provider Unknown | | | | | [place] | | | | | | [address] | (Fax) | | | | | [phone] | | | +--------+ + + + [...]
--- OUTSIDE RECORDS SUMMARY | ~2019-05-20 | XMS | Encounter Summary ---
Demographics + + + | Address | [address] | | | [place] [address] | + + + | Home Phone [...] + + + | Author | [facility] | | | and [place] | + + + | Organization | [facility] | | | and [...] Providers + +------+ + | Care Emergency Services Dispatcher Name | Role | Phone | + +------+ + PCP | Unavailable | + +------+ + Encounter Details +--------+ + + + + | Date | Type | Department | Care Team | Description | +--------+ + + + + | 07/22/ | Hospital | [facility] | Vaishnavi Edward MD | MRSA infection; | | 2018 - | Encounter | [facility] | [address] | Complication of AV | | | | CARE FLOOR [address] | [place] [address] | dialysis fistula, | | 07/25/ | | [address] | [phone] | initial encounter; | | 2017 | | [place], [place] | | End stage renal | | | | [address] | | failure on dialysis | | | | [phone] | | ([facility]); Infection of | | | | | [...] Service: Hospitalist Author Type: Physician Filed: 07/25/17 151 Date of Service: 07/25/17917 Status: Addendum Arborer: Albino Altamirano MD (Physician) Related Notes: Original Note by Albino Altamirano MD (Physician) filed at 07/25/17 1417 [facility] Service: Hospitalist Discharge Summary Date of Admission: 07/22/2017 Date of Discharge: 07/25/2017 Discharge Provider: ALIBNO ALTAMIRANO MD Treatment Team: Consulting Physician: Juana [...] Incision Site) Follow up: Juana Kwok MD [address] [place] [address] [address] Schedule an appointment as soon as possible for a visit in 1 week post hospital [place] [address] [facility] [place] [address] Medication List CHANGE how you take [...] These medications were sent to [facility] [facility] [place] - [address] [facility] [address] carvedilol 3.125 MG tablet Discharge took 35 minutes, to include final examination, discussion of admission, and prepa ration of prescriptions, instructions for on-going care, follow-up and documentation of disc harge summary. Dictation and blind eyeletter or software, Soci Ads, used which may contain error for similar [...] 1210 Date of Service: 07/25/171209 Status: Signed Arborer: Chela Boyle RPH (Pharmacist) Vancomycin Monitoring Clinician [...] Date of Service: 07/25/17 1045 Status: Signed Arborer: Heather Zavaleta RN (Registered Nurse) Went over [...] 1147 Date of Service: 07/25/17921 Status: Addendum Arborer: Devaughn Mendoza RN (Registered Nurse) Related Notes: Original Note by Devaughn Mendoza RN (Registered Nurse) filed at 07/25/17 57 9:22 AM Called and left a message for Klaudia, community health nurse at [facility]. Letting her kno w of today's discharge. I will set up transportation with [employer]. 9:55 AM Spoke with Klaudia at [facility]. Updated her on discharge plan. No chages to medication ac cording to AVS. I called [employer]. They will schedule a ride and herminia l me back. 11:46 AM Ride will be here at 3:00 PM Electronically signed by [facility] Transaction, Provider at 02/03/2019 3:05 PM PDTAkoum, Juana Smallwood MD - 07/25/2017 8:56 AM PSTFormatting of this note might be different from th e original. Progress Notes by Juana Kwok MD at 07/25/17855 Author: Juana Kwok MD Service: Nephrology Author Type: Physician Filed: 07/25/17 1104 Date of Service: 07/25/17855 Status: Signed Arborer: Juana Kwok MD (Physician) [facility] Service: Nephrology Progress Note Hospital Problem [...] fistula Admitted with: same. Recommendations: No acute HOSPICE PLAN ADMINISTRATOR indication Plan it for outpt MWF schedule Prot suppl stressed IV Vanco 1g MWF x4 more doses in the dialysis outpt setting I discussed with the primary team the case at the time of this encounter. JUANA KWOK MD 07/25/2017 onversion Transa waion, Provider Unknown - 07/24/2017 2:22 PM PST Case Management by Devaughn Mendoza RN at 07/24/17 1422 Author: eDvaughn Mendoza RN Service: (none) Author Type: Registered Nurse Filed: 07/24/17 1424 Date of Service: 07/24/17 1422 Status: Signed Arborer: Devaughn Mendoza RN (Registered Nurse) 2:22 PM Attended rounds with Dr. Altamirano. Enrique will need another 24-48 hours in the hospital. Plan is to return home with his to [place]. Will need assistance in getting transportati on. Albino Diamond MD - 07/24/2017 11:30 AM PST Progress Notes by Albino Altamirano MD at 07/24/17 1130 Author: Albino Altamirano MD Service: Hospitalist Author Type: Physician Filed: 07/24/17 7848 Date of Service: 07/24/17 1130 Status: Signed Arborer: Albino Altamirano MD (Physician) [facility] Service: Hospitalist Progress Note [...] Inpatient. Code Status: Full Code Dictation and blind eyeletter or software, Soci Ads, used which may contain error for similar [...] 07/24/17854 Date of Service: 07/24/17854 Status: Signed Arborer: Reba Roldan RPH (Pharmacist) Vancomycin Monitoring Day [...] 07/23/172023 Date of Service: 07/23/172023 Status: Signed Arborer: Ambika Hanson RPH (Pharmacist) HD patient so famotidine 20mg po changed to once daily onver quique Transaction, Provider Unknown - 07/23/2017 6:14 PM PST Progress Notes by Camilo Samson RN at 07/23/171813 Author: Camilo Samson RN Service: (none) Author Type: Registered Nurse Filed: 07/23/171813 Date of Service: 07/23/171813 Status: Signed Arborer: Camilo Samson RN (Registered Nurse) Pt received HD with 1L taken off. No acutre changes this shift. Camilo Samson RN Albino Diamond MD - 07/23/2017 2:36 PM PST Progress Notes by Albino Altamirano MD at 07/23/17 1436 Author: Albino Altamirano MD Service: Hospitalist Author Type: Physician Filed: 07/23/172016 Date of Service: 07/23/17 1436 Status: Signed Arborer: Albino Altamirano MD (Physician) [facility] Service: Hospitalist Progress Note [...] Inpatient. Code Status: Full Code Dictation and blind eyeletter or software, Soci Ads, used which may contain error for similar [...] Date of Service: 07/23/17 1043 Status: Signed Arborer: Devaughn Mendoza RN (Registered Nurse) 10:44 AM Received a call from Klaudia([phone]), she is with the [facility]. She just want ed to make herself available if there is any discharge needs that she could help with. onver quique Transaction, Provider Unknown - 07/23/2017 10:19 AM PST Case Management by Devaughn Mendoza RN at 07/23/17 1019 Author: Devaughn Mendoza RN Service: (none) Author Type: Registered Nurse Filed: 07/23/17 1022 Date of Service: 07/23/17 1019 Status: Signed Arborer: Devaughn Mendoza RN (Registered Nurse) 07/23/17 1017 Discharge Planning Evaluation Admitting Diagnosis AV fistula infection Readmission No Living Arrangements Spouse/significant other Support Systems Spouse/significant other Type of Residence Private residence Independent with ADL's Yes Independent with Mobility Yes Home Care Services No Caregiver after Discharge No Mental Status Oriented Prior functional status Independent Power of Desk Editor No Anticipated Discharge Plan Post Acute Care [...] Pt is a 52 y.o., male from [place], [place]. He lives with his and he get dialysis three times a week(--) in [facility]. He does not use any other DME equipment. Patient's PCP is:Andry Deng MD Patient's insurance:Medicare/Medicaid/Slated Coverage concerns: no Medication coverage/concerns:no Rx Bedside [...] 07/23/1757 Date of Service: 07/23/17855 Status: Signed Arborer: Shira Werner RN (Registered Nurse) Infection Prevention Note: Pt with a nasal PCR positive for MRSA. Contact Isolation precautions required for this hosp italization . Thank you! Shira Werner RN, BSN, [facility] Infection Control Coord [phone] onver quique Transaction, Provider Unknown - 07/22/2017 9:29 PM PST Pharmacy Note by Chela Boyle [facility] at [id number] Author: Chela Boyle RPH Service: Pharmacy Author Type: Pharmacist Filed: 07/22/172128 Date of Service: 07/22/172128 Status: Signed Arborer: Chela Boyle RPH (Pharmacist) Initiation of Vancomycin [...] 07/22/172106 Date of Service: 07/22/172106 Status: Signed Arborer: Chela Boyle RPH (Pharmacist) Renal Dosing Monitoring: [...] | | | Fingerstick | performed at [facility];[address] | | LAB | | | | [address] [place] | | | | | | [address] | | | | + + + [...] | | | Basophils | performed at [facility], [address] | K/uL | LAB | | | | [place], | | | | | | [place] [address] | | | | + + + [...] | | | | | | at [facility], [address] | | | | | | [facility], | | | | | | [place] [address] | | | | + + + [...] | | | Fingerstick | performed at [facility];[address] | | LAB | | | | [address] [place] | | | | | | [address] | | | | + + + [...] - 1.030 | EXTERNAL | | | [facility] | | | LAB | | + [...] | | | CRYSTAL | performed at [facility];[address] | | LAB | | | | [place] | | | | | | [address] | | | | + + + [...] | | | Fingerstick | performed at [facility];[address] | | LAB | | | | [address] [place] | | | | | | [address] | | | | + + + [...] | | | Fingerstick | performed at [facility];[address] | | LAB | | | | [address];[place] | | | | | | [address] | | | | + + + [...] | | | Fingerstick | performed at [facility];[address] | | LAB | | | | [place] [place] | | | | | | [address] | | | | + + + [...] | | | Fingerstick | performed at [facility];[address] | | LAB | | | | [address];[place], [place] | | | | | | [address] | | | | + + + [...] | | | Basophils | performed at [facility], [address] | K/uL | LAB | | | | [address], | | | | | | [place] [address] | | | | + + + [...] EXTERNAL | | | | performed at [facility], [address] | | LAB | | | | [place], | | | | | | [place] [address] | | | | + + + [...] | | | | | | at [facility], [address] | | | | | | [facility], | | | | | | [place] [address] | | | | + + + [...] | | | Fingerstick | performed at [facility] | | LAB | | | | [address] [place] | | | | | | [address] | | | | + + + [...] | | | Fingerstick | performed at [facility];[address] | | LAB | | | | [address];[place], [place] | | | | | | [address] | | | | + + + [...] at | | | | | | [facility], [address] [facility] | | | | | | [place] | | | | | | [address] | | | | + + + [...] | | | Fingerstick | performed at [facility];[address] | | LAB | | | | [address];[place], [place] | | | | | | [address] | | | | + + + [...] | | | Basophils | performed at [facility], [address] | K/uL | LAB | | | | [place], | | | | | | [place] [address] | | | | + + + [...] EXTERNAL | | | | performed at [facility], [address] | | LAB | | | | [place]anna Jeffrey, | | | | | | [place] [address] | | | | + + + [...] | | | | | | at [facility], [address] | | | | | | [facility], | | | | | | [place] [address] | | | | + + + [...] | | | Fingerstick | performed at [facility];[address] | | LAB | | | | [address] [place] | | | | | | [address] | | | | + + + [...] | | | PCRAbnormal Testing performed at [facility];[address] [place] [address];[place] [address] | | + + + + +---------+ [...] | | | | performed at [facility];[address] | | LAB | | | | [address];[place], [place] | | | | | | [address] | | | | + + + [...] | | | | performed at [facility];[address] | | LAB | | | | [address];[place], [place] | | | | | | [address] | | | | + + + [...] | | Basophils | performed at [facility];[address] | K/uL | LAB | | | | [address];[place] | | | | | | [address] | | | | + + + [...] | | | | performed at [facility];[address] | mmol/L | LAB | | | | [address];[place], [place] | | | | | | [address] | | | | + + + [...] IN | | | | | | [facility] AT [address] | | | [...] | | | | | at [facility];[address] [place] [address] | | | | | | [facility];[place] [address] | | | | + + + [...]
--- OUTSIDE RECORDS SUMMARY | ~2019-05-20 | XMS | Encounter Summary ---
Demographics + + + | Address | [address] | | | [place] [address] | + + + | Home Phone [...] + + + | Author | [facility] | | | and [place] | + + + | Organization | [facility] | | | [...] Team Providers + +------+ + | Care Analog Design Engineer Name | Role | Phone | + +------+ + | Andry Deng DO | PCP | | + +------+ + Encounter Details +--------+ + + + + | Date | Type | Department | Care Team | Description | +--------+ + + + + | 05/31/ | Orders Only | [facility] | Conversion | | | 2013 | | INFECTIOUS DISEASE | Transaction, | | | | | [address] | Provider Unknown | | | | | [place], [place] | [phone] | | | | | [address] | | | | | | [phone] | | | +--------+ + + + [...]
--- OUTSIDE RECORDS SUMMARY | ~2019-05-20 | XMS | Encounter Summary ---
Demographics + + + | Address | [address] | | | [place] [address] | + + + | Home Phone [...] Team Providers + +------+ + | Care School Based Therapist Name | Role | Phone | + +------+ + PCP | Unavailable | + +------+ + Encounter Details +--------+ + + + + | Date | Type | Department | Care Team | Description | +--------+ + + + + | 10// | Hospital | [facility] | Oskar Meyer MD | | | 2014 | Encounter | [facility] | [address] | | | | | [address] | [place], [place] | | | | | [place], [place] | [address] | | | | | [address] | [phone] | | | | | [phone] | | | +--------+ + + + [...] Note by Tariq Rosenthal RN at 03/30/14 5798 Author: Tariq Rosenthal RN Service: (none) Author Type: Registered Nurse Filed: 03/30/14 1321 Date of Service: 03/30/14 1320 Status: Signed [employer] Strip Mill Supervisor: Tariq Rosenthal RN (Registered Nurse) Thrill and Bruit present CRISTI drain in RUE. Dressing CDI scant amt of serosanguinous drainage . onver quique Transaction, Provider Unknown - 03/30/2014 1:00 PM PDT Progress Notes by Yahaira Diaz RN at 03/30/14 1300 Author: Yahaira Diaz RN Service: (none) Author Type: Registered Nurse Filed: 03/30/14 1349 Date of Service: 03/30/14 1300 Status: Signed [place] Supervisor: Yahaira Diaz RN (Registered Nurse) Asked Dr. Meyer to check AV Fistula site. I stated can palpate Bruit faintly thru dressing. A thrill is loud audible. He looked at patient and stated that was acceptable. Yahaira chacon erline Amin [facility] - 03/30/2014 12:59 PM PDTFormatting of this note might be different from the or iginal. Progress Notes by Kerline Edgar RPH at 03/30/14 1259 Author: Kerline Edgar RPH Service: (none) Author Type: Pharmacist Filed: 03/30/14 1257 Date of Service: 03/30/14 1259 Status: Signed [place] Supervisor: Kerline Edgar RPH (Pharmacist) Renal Dosing Monitoring: Enrique Potter 49 y.o. male Pharmacy dosing for renal function per Dr. Meyer Plan per protocol: HD patient No medications need to be renally adjusted at this time Pharmacy will continue monitoring patient for appropriate dosing per renal function. 03/30/2014 12:58 PM Pharmacist: KERLINE EDGAR documente d in this encounter Plan of [...] | | | Fingerstick | performed at [facility];[address] | | LAB | | | | [address] [place] | | | | | | [address] | | | | + + + [...] | | | Fingerstick | performed at [facility];[address] | | LAB | | | | [address];[place], [place] | | | | | | [address] | | | | + + + [...]
--- OUTSIDE RECORDS SUMMARY | ~2019-05-20 | XMS | Encounter Summary ---
Demographics + + + | Address | [address] | | | [place] [address] | + + + | Home Phone | | + + + | Preferred Language | Unknown | + + + | Marital Status | Unknown | + + + | Episcopal Affiliation | 1076 | + + + | Race | Unknown | + + + | Ethnic Group | Unknown | + + + Author + + + | Author | [facility] | | | and [place] | + + + | Organization | [facility] | | | [...] Team Providers + +------+ + | Care Hospice Educator Name | Role | Phone | + +------+ + PCP | Unavailable | + +------+ + Encounter Details +--------+ + + + + | Date | Type | Department | Care Team | Description | +--------+ + + + + | 01/08/ | Hospital | [facility] | Conversion | Mesenteric arterial | | 2013 | Encounter | CENTER CV INTRA OP | Transaction, | bleeding | | | | [address] | Provider Unknown | | | | | [place], [place] | [phone] | | | | | [address] | | | | | | [phone] | Juan Timmons MD | | | | | | [address] | | | | | | [place] | | | | | | [address] | | | | | | | [...] (none) Author Type: Registered Nurse Filed: 01/08/13 0359 Date of Service: 01/08/131545 Status: Signed Pediatric Hospitalist: Gemini Triplett RN (Registered Nurse) Pt ready to go home, tolerated juice and crackers well. Dr. Sawyer spoke with patient and spouse regarding findings, [...] + | [facility] 01/08/2013 1:57 PM [...] conscious sedation and | | | independent intermediate supervision performed throughout the | | | [...] needle and | | | exchanged for 4-Kazakh micropuncture sheath. Initial fistula | | | pressure was obtained and fistulogram obtained from the left cubital | | | fossa to the right atrium. 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 | | | 4-Kazakh micropuncture sheath was exchanged for 6-Kazakh short | | | sheath over a 0.035, angled Glidewire. Using combination of the | | | 4-Kazakh angled glide catheter and 0.035 angled Glidewire multiple | | | attempts to traverse the occluded distal left basilic vein was | | | unsuccessful. Subsequently, 4-Kazakh angled glide catheter was | | | [...] Conversion - 02/13/2019 4:30 PM PDT [facility] | | FISTULAGRAM01/08/2013 1:57 PM [...] adequate conscious | | sedation and independent intermediate supervision performed throughout the procedure. | | [...] micropuncture needle and | | exchanged for 4-Kazakh micropuncture sheath. Initial fistula pressure was obtained and | | fistulogram obtained from the left cubital fossa to the right atrium. Given the | | multiple tandem stenosis in proximal left basilic vein and occlusion of at the level of | | left axilla, I decided to perform angioplasty of the venous lesions. 4-Kazakh | | micropuncture sheath was exchanged for 6-Kazakh short sheath over a 0.035, angled | | Glidewire. Using combination of the 4-Kazakh angled glide catheter and 0.035 angled | | Glidewire multiple attempts to traverse the occluded distal left basilic vein was | | unsuccessful. Subsequently, 4-Kazakh angled glide catheter was exchanged for 7 [...] bypass versus new AV fistula in ri [facility] arm. | | | | | + ---------+ IR Inj Dialysis Circuit (01/08/2013 3:05 PM PDT) + + | Specimen | + + | | + + + + + | Narrative | Performed At | + + + | [facility] 01/08/2013 1:57 PM [...] conscious sedation and | | | independent intermediate supervision performed throughout the | | | [...] needle and | | | exchanged for 4-Kazakh micropuncture sheath. Initial fistula | | | pressure was obtained and fistulogram obtained from the left cubital | | | fossa to the right atrium. 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 | | | 4-Kazakh micropuncture sheath was exchanged for 6-Kazakh short | | | sheath over a 0.035, angled Glidewire. Using combination of the | | | 4-Kazakh angled glide catheter and 0.035 angled Glidewire multiple | | | attempts to traverse the occluded distal left basilic vein was | | | unsuccessful. Subsequently, 4-Kazakh angled glide catheter was | | | [...] Conversion - 02/13/2019 4:30 PM PDT [facility] | | FISTULAGRAM01/08/2013 1:57 PM HISTORY:49 [...] adequate conscious | | sedation and independent intermediate supervision performed throughout the procedure. | | [...] micropuncture needle and | | exchanged for 4-Kazakh micropuncture sheath. Initial fistula pressure was obtained and | | fistulogram obtained from the left cubital fossa to the right atrium. Given the | | multiple tandem stenosis in proximal left basilic vein and occlusion of at the level of | | left axilla, I decided to perform angioplasty of the venous lesions. 4-Kazakh | | micropuncture sheath was exchanged for 6-Kazakh short sheath over a 0.035, angled | | Glidewire. Using combination of the 4-Kazakh angled glide catheter and 0.035 angled | | Glidewire multiple attempts to traverse the occluded distal left basilic vein was | | unsuccessful. Subsequently, 4-Kazakh angled glide catheter was exchanged for 7 [...]
--- OUTSIDE RECORDS SUMMARY | ~2019-05-20 | XMS | Encounter Summary ---
Demographics + + + | Address | [address] | | | [place] [address] | + + + | Home Phone | | + + + | Preferred Language | Unknown | + + + | Marital Status | Unknown | + + + | Episcopal Affiliation | 1076 | + + + | Race | Unknown | + + + | Ethnic Group | Unknown | + + + Author + + + | Author | [facility] | | | and [place] | + + + | Organization | [facility] | | | [...] Team Providers + +------+ + | Care Film Coater Name | Role | Phone | + +------+ + PCP | Unavailable | + +------+ + Encounter Details +--------+ + + + + | Date | Type | Department | Care Team | Description | +--------+ + + + + | 10// | Hospital | [facility] | Oskar Meyer MD | | | 2014 | Encounter | [facility] | [address] | | | | | [address] | [place], [place] | | | | | [place], [place] | [address] | | | | | [address] | [phone] | | | | | [phone] | | | +--------+ + + + [...] Note by Tariq Rosenthal RN at 03/30/14 7517 Author: Tariq Rosenthal RN Service: (none) Author Type: Registered Nurse Filed: 03/30/14 1321 Date of Service: 03/30/14 1320 Status: Signed Time Clock Repairer: Tariq Rosenthal RN (Registered Nurse) Thrill and Bruit present CRISTI drain in RUE. Dressing CDI scant amt of serosanguinous drainage . onver quique Transaction, Provider Unknown - 03/30/2014 1:00 PM PDT Progress Notes by Yahaira Diaz RN at 03/30/14 1300 Author: Yahaira Diaz RN Service: (none) Author Type: Registered Nurse Filed: 03/30/14 1349 Date of Service: 03/30/14 1300 Status: Signed Time Clock Repairer: Yahaira Diaz RN (Registered Nurse) Asked Dr. Meyer to check AV Fistula site. I stated can palpate Bruit faintly thru dressing. A thrill is loud audible. He looked at patient and stated that was acceptable. Yahaira chacon erline Amin [facility] - 03/30/2014 12:59 PM PDTFormatting of this note might be different from the or iginal. Progress Notes by Kerline Edgar RPH at 03/30/14 1259 Author: Kerline Edgra RPH Service: (none) Author Type: Pharmacist Filed: 03/30/14 1251 Date of Service: 03/30/14 1259 Status: Signed Time Clock Repairer: Kerline Edgar RPH (Pharmacist) Renal Dosing Monitoring: [...] | | | Fingerstick | performed at [facility];[address] | | LAB | | | | [address];[place] | | | | | | [id number] | | | | + + + [...] | | | Fingerstick | performed at [facility];[address] | | LAB | | | | [address];[place], [place] | | | | | | [address] | | | | + + + [...]
--- OUTSIDE RECORDS SUMMARY | ~2019-05-20 | XMS | Encounter Summary ---
Demographics + + + | Address | [address] | | | [place] [address] | + + + | Home Phone | | + + + | Preferred Language | Unknown | + + + | Marital Status | Unknown | + + + | Quaker Affiliation | 1076 | + + + | Race | Unknown | + + + | Ethnic Group | Unknown | + + + Author + + + | Author | [facility] | | | and [place] | + + + | Organization | [facility] | | [...] Team Providers + +------+ + | Care Test Administrator Name | Role | Phone | + +------+ + PCP | Unavailable | + +------+ + Encounter Details +--------+ + + + + | Date | Type | Department | Care Team | Description | +--------+ + + + + | 02/20/ | Emergency | [facility] | Trevor Bernal | Neck pain; C6 | | 2015 | | [facility] | [address] | cervical fracture, | | | | EM[facility]Y [facility]ENTER | [address] | closed, initial | | | | [address] | [place], [place] | encounter ([facility]); | | | | [place], [place] | [address] | Bilateral hand pain | | | | [address] | [phone] | | | | | [phone] | | | +--------+ + + + [...] 1 puff into | | 0 | /01/10 | | | fluticasone-salmeter | the lungs [...] a small amount | | 0 | 03/07/ | | | ointment | to affected [...] | the most part fused with the voicer fracture of the anterior | | | [...] Palm Conversion - 02/06/2019 3:01 AM PDT HISTORY: [...] most | | part fused with the voicer fracture of the anterior inferior aspect of [...] limb | + + documented in this encounter"
--- OUTSIDE RECORDS SUMMARY | ~2019-05-20 | XMS | Encounter Summary ---
Demographics + + + | Address | [address] | | | [place] [address] | + + + | Home Phone | | + + + | Preferred Language | Unknown | + + + | Marital Status | Unknown | + + + | Jainism Affiliation | [id number] | + + + | Race | Unknown | + + + | Ethnic Group | Unknown | + + + Author + + + | Author | [facility] | | | and [place] | + + + | Organization | [facility] | | | [...] Team Providers + +------+ + | Care Power Plant Technician Name | Role | Phone | + +------+ + PCP | Unavailable | + +------+ + Encounter Details +--------+ + + + + | Date | Type | Department | Care Team | Description | +--------+ + + + + | 03/15/ | Hospital | [facility] | RichichitraBoomr, | Sepsis (FORMERLY [facility]); | | 2013 - | Encounter | [facility] | MD Umer Caraballo | Pneumonia; ESRD on | | | | [address] | [place] [address] | hemodialysis ([facility]LY [facility]); | | 03/20/ | | [address] | [phone] | DM (diabetes | | 2013 | | [place], [place] | | mellitus) (FORMERLY [facility]); | | | | [address] | | Gram-positive cocci | | | | [phone] | | bacteremia; Anemia | | | | | | of chronic kidney | | | | | | failure; ESRD (end | | | | | | stage renal disease) | | | | | | on dialysis ([facility]); | | | | | | HTN (hypertension); | | | | | | Diabetes mellitus | | | | | | with ESRD (end-stage | | | | | | renal disease) | | | | | | ([facility]LY [facility]) | +--------+ + + + + Social [...] Summaries by Douglas Stevenson MD at 03/20/14 9882 Author: Douglas Stevenson MD Service: (none) Author Type: Physician Filed: 04/02/14 5932 Date of Service: 03/20/14 084 Status: Signed Ticketing Clerk: Douglas Stevenson MD (Physician) Related Notes: Original Note by Douglas Stevenson MD (Physician) filed at 03/20/14 4226 [facility] Service: Hospitalist Physician Discharge Summary Patient ID: Enrique Potter [id number] 48 y.o. 1965 Admit date: 03/15/2014 Discharge [...] center. He was originally seen at [facility] where h e was thought to [...] Disposition: *Home Follow up: Kisha Tello MD [address] [place] [address] [place] [address] In 2 weeks [facility] Dictation and roofing technician or software, Webshoz, used which may contain error for similar [...] W/ EGD; Surgeon: John Singleton MD; Location: [facility]COPY; Se rvice: Gastroenterology; Laterality: N/A; Av fistula placement 05/06/2012 Procedure: AV FISTULA; Surgeon: Oskar Meyer MD; Location: [facility] MA[facility] OR; Service: Vascul ar; Laterality: Left; Left arm possible right Unlisted procedure arthroscopy shoulder rt , ligaments Knee arthroscopy 07/07/2012 Procedure: KNEE - ARTHROSCOPY; Surgeon: Favio Raza MD; Location: [facility]; S ervice: Orthopedics; Laterality: Right; After 1530 Catheter removal 07/07/2012 Procedure: DIALYSIS CATHETER REMOVAL; Surgeon: Oskar Meyer MD; Location: [facility] BEDSIDE CT OCEDURE; Service: General; Laterality: Right; perm cath Dialysis fistula creation 07/07/2012 Procedure: DIALYSIS CATHETER INSERTION; Surgeon: Oskar Meyer MD; Location: [facility] BEDSIDE PROCEDURE; Service: General; Laterality: Left; temporary dialysis catheter Av fistula repair 07/11/2012 Procedure: AV FISTULA GRAFT REPAIR/REVISION; Surgeon: Oskar Meyer MD; [facility]; Service: Vascular; Laterality: Left; Superficialization of brachiobasilic fistula and right IJ perm cath insertion Dialysis fistula creation 07/11/2012 Procedure: DIALYSIS CATHETER INSERTION; Surgeon: Oskar Meyer MD; Location: [facility] OR; Service: Vascular; Laterality: Left; removed dialysis catheter from left neck and placed new on in left chest, attempted in right neck but unable to place Av fistula placement Right 02/09/2014 Procedure: AV FISTULA; Surgeon: Oskar Meyer MD; Location: [facility] OR; Service: Vascul ar; Laterality: Right; [...] are the prescriptions that you need to order picker. You may get the following medications [...] 03/20/141005 Date of Service: 03/20/141005 Status: Signed Ticketing Clerk: Curtis Victoria RPH (Pharmacist) No HD scheduled for 03/20- no vanco dose needed. antosElsie vargas S - 03/20/2014 10:06 AM PDT Progress Notes by Elsie Sharma MD at 03/20/14 1006 Author: Elsie Sharma MD Service: Infectious Disease Author Type: Physician Filed: 03/20/14 1714 Date of Service: 03/20/14 1006 Status: Signed Ticketing Clerk: Elsie Sharma MD (Physician) Related Notes: Original Note by Elsie Sharma MD (Physician) filed at 03/20/14 1016 [facility] Service: Infectious Disease Progress Note Hospital Day: [...] secondary to long-term dialysis; pres ented to [facility] on 03/14 with symptoms of cough, chills, myalgias, fevers. P atient was thought to have pneumonia, possible septicemia. Cultures were drawn and he was s tarted on vancomycin and Zosyn and levofloxacin. He was then shift to [facility] for further ma nagement. Recently had right arm brachial basilic fistula creation in January 2014. Blood cultures drawn at [facility] prior to transfer now showing gram-positive [...] drawn, antibiotics given and shifted initially to [facility] and then subsequently here. His medication at presentation includes doxycycline-unclear if he has continued to remain o n this-was due to complete this in April as per last infectious disease note. However he has not followed up with ID since November 2012. Blood culture growth from [facility] is MSSA in 4 out of [...] mg Intravenous See Admin Instructions vitamin B yrkstyh-U-xzwct acid 1 tablet Oral Daily Continuous Infusions [...] Value Units Date/Time Blood Culture Set 1 [[id number]] (Abnormal) Collected: 03/17/14 1351 Order Status: Completed Updated: 03/20/14 0745 Specimen Information: Blood / Blood Line Draw Specimen Description BLOOD, LINE DRAW SPECIAL REQUESTS DIAL.LINE LD3 GRAM STAIN GRAM-POSITIVE COCCUS (A) GRAM STAIN SEEN IN AEROBIC BOTTLE GRAM STAIN SMEAR RESULTS CALLED TO AND READ BACK BY: GRAM ANNIE Martinez IN 6RP ON 03/18/14 AT 1620 BRANCH OFFICER CULTURE STAPHYLOCOCCUS AUREUS (A) CULTURE FINDING OF ORGANISM GROWTH (A) CULTURE TIME TO DETECTION: CULTURE 0.95 DAYS CULTURE Result: Testing performed at [facility], [address] [place] [address] Culture & Susceptibility STAPHYLOCOCCUS AUREUS Antibiotic Sensitivity [...] no growth to-date. Blood cultures from [facility] have grown MSSA. Radiology Results (last [...] vegetation. Fever with bacteremia: Blood cultures at [facility] are now identified as MSSA in [...] Date of Service: 03/20/14 1000 Status: Signed Ticketing Clerk: Sean Reid MD (Physician) [facility] Service: NEPHROLOGY Progress Note Enrique Potter 48 y.o. [id number] [place] Hospital Day: LOS: 5 days SUBJECTIVE .CHIEF COMPLAINT: I had fever HISTORY OF PRESENT ILLNESS: Enrique Potter is a 48 y.o. male with Significant PMH of ESRD secondary to Biopsy-proven Diabet ic nephropathy who is dialyzed Saturday and Saturday at [place] dialysis unit via [place] upper extremity brachio cephalic fistula , DM2 , Secondary hyperparathyroidism , Anemia o f chronic renal failure ,Treated with IV antibiotics for endocarditis in the past. Clotted A VF 11/04 when hospitalized at [facility] and had tunneled catheter placed. Right upper extremity bra chiocephalic fistula by Dr. Meyer 02/04, Presented with fever at the dialysis unit and complain ed of not feeling well for the past 2-3 days with cough, diffuse body aches. Indicated one o f his granddaughters being sick with a mild infection which resolved. Sent to [facility] after completion of his dialysis treatment where he was felt to have pneumonia with leukocytosis and infiltrate seen on the chest x-ray. MAXIMUM TEMPERA TURE noted to be 1 or 2.5. Started on intravenous Levaquin after blood cultures were drawn. Staph aureus bacteremia. 4 out of 4 bottles, Actually left (after review of X ray from [facility]) lower lobe pneumonia, most likely bacterial: [...] W/ EGD; Surgeon: John Singleton MD; Location: [facility]; Se rvice: Gastroenterology; Laterality: N/A; Av fistula placement 05/06/2012 Procedure: AV FISTULA; Surgeon: Oskar Meyer MD; Location: [facility]; Service: Vascul ar; Laterality: Left; Left arm possible right Unlisted procedure arthroscopy shoulder rt , ligaments Knee arthroscopy 07/07/2012 Procedure: KNEE - ARTHROSCOPY; Surgeon: Favio Raza MD; Location: [facility]; S ervice: Orthopedics; Laterality: Right; After 1530 Catheter removal 07/07/2012 Procedure: DIALYSIS CATHETER REMOVAL; Surgeon: Oskar Meyer MD; Location: [facility] BEDSIDE CT OCEDURE; Service: General; Laterality: Right; perm cath Dialysis fistula creation 07/07/2012 Procedure: DIALYSIS CATHETER INSERTION; Surgeon: Oskar Meyer MD; Location: [facility] BEDSIDE PROCEDURE; Service: General; Laterality: Left; temporary dialysis catheter Av fistula repair 07/11/2012 Procedure: AV FISTULA GRAFT REPAIR/REVISION; Surgeon: Oskar Meyer MD; [facility]; Service: Vascular; Laterality: Left; Superficialization of brachiobasilic fistula and right IJ perm cath insertion Dialysis fistula creation 07/11/2012 Procedure: DIALYSIS CATHETER INSERTION; Surgeon: Oskar Meyer MD; Location: [facility]; Service: Vascular; Laterality: Left; removed dialysis catheter from left neck and placed new on in left chest, attempted in right neck but unable to place Av fistula placement Right 02/09/2014 Procedure: AV FISTULA; Surgeon: Oskar Meyer MD; Location: [facility]; Service: Vascul ar; Laterality: Right; [...] KIDS. CURRENTLY UNEMPLOYED, BEFOR E WORKED AT [employer] IN [place]. Quit METHAMPHETAMINES PER PATIENT after t he [...] mg Intravenous See Admin Instructions vitamin B khoxxun-W-vabuk acid 1 tablet Oral Daily Continuous Infusions [...] USE Clotted AVF 11/04 when hospitalized at [facility] and had tunneled catheter placed. Right upper [...] Results Component Value Date PTHINTACT 255* 04/02/2012 [id number] <12* 04/02/2012 Lab Results Component Value Date [...] ASSESSMENT & PLAN [facility] [place] [facility]ESS: [facility] PERMACATH IN USE Clotted AVF 11/04 when hospitalized at [facility] and had tunneled catheter placed. Right upper [...] then 11/10/2013 at chronic hemodialysis unit in [place], I have already informed the nurse there. D/W SHYANNE REID MD 03/20/2014 Jeaneth Abraham MD - 03/19/2014 12:36 PM PDT . Progress Notes by Douglas Stevenson MD at 03/19/14 1236 Author: Douglas Stevenson MD Service: (none) Author Type: Physician Filed: 03/19/14 1239 Date of Service: 03/19/14 1236 Status: Signed Ticketing Clerk: Douglas Stevenson MD (Physician) [facility] Service: Hospitalist Progress Note Hospital Day: LOS: [...] . Code Status: Full Code Dictation and roofing technician or software, Webshoz, used which may contain error for similar [...] mg Intravenous See Admin Instructions vitamin B miiljpr-W-rqvhd acid 1 tablet Oral Daily Continuous Infusions [...] Dennis Velasquez RN Service: (none) Author Type: Salesforce Specialist Filed: 03/19/14 1224 Date of Service: 03/19/14 1219 Status: Signed Ticketing Clerk: Dennis Velasquez RN (Salesforce Specialist) Discharge Planning: Vancomycin Rx faxed to [place],([phone])also progress no trixie, and lab work as requested. Sean Willis MD - 03/19/2014 10:28 AM PDTFormatting of this note might be different from the o riginal. Progress Notes by eSan Reid MD at 03/19/14 1028 Author: Sean Reid MD Service: Nephrology Author Type: Physician Filed: 03/19/14 1336 Date of Service: 03/19/14 1028 Status: Signed Ticketing Clerk: Sean Reid MD (Physician) [facility] Service: NEPHROLOGY Progress Note Enrique Potter 48 y.o. [id number] male [facility] Hospital Day: LOS: 4 days SUBJECTIVE .CHIEF COMPLAINT: I had fever HISTORY OF PRESENT ILLNESS: Enrique Potter is a 48 y.o. male with Significant PMH of ESRD secondary to Biopsy-proven Diabet ic nephropathy who is dialyzed Saturday and Saturday at [place] dialysis unit via Le ft upper extremity brachio cephalic fistula , DM2 , Secondary hyperparathyroidism , Anemia o f chronic renal failure ,Treated with IV antibiotics for endocarditis in the past. Clotted A VF 11/04 when hospitalized at [facility] and had tunneled catheter placed. Right upper extremity bra chiocephalic fistula by Dr. Meyer 02/04, Presented with fever at the dialysis unit and complain ed of not feeling well for the past 2-3 days with cough, diffuse body aches. Indicated one o f his granddaughters being sick with a mild infection which resolved. Sent to [facility] after completion of his dialysis treatment where he was felt to have pneumonia with leukocytosis and infiltrate seen on the chest x-ray. MAXIMUM TEMPERA TURE noted to be 1 or 2.5. Started on intravenous Levaquin after blood cultures were drawn. Staph aureus bacteremia. 4 out of 4 bottles, Actually left (after review of X ray from [facility] ec) lower lobe pneumonia, most likely bacterial: [...] W/ EGD; Surgeon: John Singleton MD; Location: [facility]; Se rvice: Gastroenterology; Laterality: N/A; Av fistula placement 05/06/2012 Procedure: AV FISTULA; Surgeon: Oskar Meyer MD; Location: [facility]; Service: Vascul ar; Laterality: Left; Left arm possible right Unlisted procedure arthroscopy shoulder rt , ligaments Knee arthroscopy 07/07/2012 Procedure: KNEE - ARTHROSCOPY; Surgeon: Favio Raza MD; Location: [facility]; S ercherie: Orthopedics; Laterality: Right; After 1530 Catheter removal 07/07/2012 Procedure: DIALYSIS CATHETER REMOVAL; Surgeon: Oskar Meyer MD; Location: [facility] BEDSIDE CT OCEDURE; Service: General; Laterality: Right; perm cath Dialysis fistula creation 07/07/2012 Procedure: DIALYSIS CATHETER INSERTION; Surgeon: Oskar Meyer MD; Location: [facility] BED[facility] PROCEDURE; Service: General; Laterality: Left; temporary dialysis catheter Av fistula repair 07/11/2012 Procedure: AV FISTULA GRAFT REPAIR/REVISION; Surgeon: Oskar Meyer MD; Location: [facility] N OR; Service: Vascular; Laterality: Left; Superficialization of brachiobasilic fistula and right IJ perm cath insertion Dialysis fistula creation 07/11/2012 Procedure: DIALYSIS CATHETER INSERTION; Surgeon: Oskar Meyer MD; Location: [facility]; Service: Vascular; Laterality: Left; removed dialysis catheter from left neck and placed new on in left chest, attempted in right neck but unable to place Av fistula placement Right 02/09/2014 Procedure: AV FISTULA; Surgeon: Oskar Meyer MD; Location: [facility]; Service: Vascul ar; Laterality: Right; [...] KIDS. CURRENTLY UNEMPLOYED, BEFOR E WORKED AT [employer] IN [place]. Quit METHAMPHETAMINES PER PATIENT after t he [...] mg Intravenous See Admin Instructions vitamin B bzidijg-I-abbdd acid 1 tablet Oral Daily Continuous Infusions [...] USE Clotted AVF 11/04 when hospitalized at [facility] and had tunneled catheter placed. Right upper [...] Results Component Value Date PTHINTACT 255* 04/02/2012 [id number] <12* 04/02/2012 Lab Results Component Value Date [...] ASSESSMENT & PLAN [facility] [place] [facility] ACCESS: [facility] PERMACATH IN USE Clotted AVF 11/04 when hospitalized at [facility] and had tunneled catheter placed. Right upper [...] Leukocytosis resolved. Afebrile. BACTEREMIA: blood cultures from [facility] positive for gram-positive cocci in 4 bottles. MSSA Started on vancomycin By ID On long-term doxycycline.?? For skin lesions 2-3 years ago TOLERATING HD WELL Discussed with Dr. Stevenson, awaiting for the last blood culture report Discussed with Dr. Zimmerman, will arrange for vancomycin 750 mg during hemodialysis 3 times a week until then 11/10/2013 at chronic hemodialysis unit in [place], I have already infor med the nurse [...] 0928 Date of Service: 03/19/14904 Status: Addendum Ticketing Clerk: Elsie Sharma MD (Physician) Related Notes: Original Note by Elsie Sharma MD (Physician) filed at 03/19/14 09 [facility] Service: Infectious Disease Progress Note Hospital Day: [...] secondary to long-term dialysis; pres ented to [facility] on 03/14 with symptoms of cough, chills, myalgias, fevers. P atient was thought to have pneumonia, possible septicemia. Cultures were drawn and he was s tarted on vancomycin and Zosyn and levofloxacin. He was then shift to [facility] for further ma mona. Recently had right arm brachial basilic fistula creation in January 2014. Blood cultures drawn at [facility] prior to transfer now showing gram-positive [...] drawn, antibiotics given and shifted initially to [facility] and then subsequently here. His medication at presentation includes doxycycline-unclear if he has continued to remain o n this-was due to complete this in April as per last infectious disease note. However he has not followed up with ID since November 2012. Events Overnight: Blood culture growth from [facility] is MSSA in 4 out o [...] mg Intravenous See Admin Instructions vitamin B xdzcmks-Y-vhjkq acid 1 tablet Oral Daily Continuous Infusions [...] 03/19/2014 Microbiology Results Blood Culture Set 2 [[id number]] Collected: 03/17/14 1354 Order Status: Completed Updated: 03/19/14 0628 Specimen Information: Blood / Blood Specimen Description BLOOD, PERIPHERAL DRAW SPECIAL REQUESTS L HAND SPECIAL REQUESTS Result: Testing performed at [facility];[address];[place] [address] CULTURE NO GROWTH CULTURE Result: Testing performed at [facility], [address] [address] Blood Culture Set 1 [[id number]] (Abnormal) Collected: 03/17/14 1351 Order Status: Completed Updated: 03/18/14 1621 Specimen Information: Blood / Blood Line Draw Specimen Description BLOOD, LINE DRAW SPECIAL REQUESTS DIAL.LINE SPECIAL REQUESTS Result: Testing performed at [facility];[address];[place] [address] GRAM STAIN GRAM-POSITIVE COCCUS (A) GRAM STAIN SEEN IN AEROBIC BOTTLE GRAM STAIN SMEAR RESULTS CALLED TO AND READ BACK BY: HANNA Martinez IN 6RP ON 03/18/14 AT 1620 BRANCH OFFICER CULTURE WORK UP IN PROGRESS AT [facility] CULTURE FINDING OF ORGANISM GROWTH (A) CULTURE TIME TO DETECTION: CULTURE 0.95 DAYS CULTURE Result: Testing performed at [facility], [address] [place] [address] Rapid FLU A and B [[id number]] Collected: 03/15/142056 Negative for Influenzae Type A [...] vegetation. Fever with bacteremia: Blood cultures at [facility] are now identified as MSSA in [...] Management by Dennis Velasquez RN at 03/18/14 143 Author: Dennis Velasquez RN Service: (none) Author Type: Salesforce Specialist Filed: 03/18/14 1430 Date of Service: 03/18/14 1438 Status: Signed Ticketing Clerk: Dennis Velasquez RN (Salesforce Specialist) Food voucher given to pt's . Explained [...] Notes by Douglas Stevenson MD at 03/18/14 3960 Author: Douglas Stevenson MD Service: (none) Author Type: Physician Filed: 03/18/14 2430 Date of Service: 03/18/14 1351 Status: Signed Ticketing Clerk: Douglas Stevenson MD (Physician) [facility] Service: Hospitalist Progress Note Hospital Day: LOS: [...] . Code Status: Full Code Dictation and roofing technician or software, Webshoz, used which may contain error for similar [...] mg Intravenous See Admin Instructions vitamin B pqyszsd-O-wxhkj acid 1 tablet Oral Daily Continuous Infusions [...] Notes by Curtis Victoria RPH at 03/18/14 952 Author: Curtis Victoria RPH Service: (none) Author Type: Pharmacist Filed: 03/18/142 Date of Service: 03/18/141156 Status: Signed Ticketing Clerk: Curtis Victoria RPH (Pharmacist) Initiation of Vancomycin Pharmacy Dosing Enrique Potter 48 y.o. male 1.702 m (5' 7") 71.9 kg (158 lb 8.2 oz) Body mass index is 24.82 kg/(m^2). [place] Body Weight: Adjusted Body Weight: CREATININE Date Value Range Status 03/18/2014 5.28* 0.70 - 1.30 mg/dL Final Testing performed at [facility], [address] [place] [address] Estimated CrCl : CREATININE: 5.28 mg/dL ABNORMAL [...] Date of Service: 03/18/14 1143 Status: Signed Ticketing Clerk: Nakul Soria MD (Physician) PCP : [facility] LOS: 3 days Enrique Potter is a 48 y.o. male followed for ESRD management Significant PMH of ESRD secondary to Biopsy-proven Diabetic nephropathy who is dialyzed Saturday and rid at [place] dialysis unit via Left upper extremity brachio cephalic fistula DM2 Secondary hyperparathyroidism Anemia of chronic renal failure Treated with IV antibiotics for endocarditis in the past. Clotted AVF 11/04 when hospitalized at [facility] and had tunneled catheter placed. Right upper extremity brachiocephalic fistula by Dr. Meyer 02/04 Interval history: Enrique Potter feels 'good' today. Overnight events: Discharge held with the report of blood cultures from [facility] positive for g maame-positive cocci in [...] who is dialyzed Saturday and Saturday at [place] dialysis unit using left IJ tunnel ed dialysis catheter (last HD 03/15/14). His primary wad blanking press adjuster is Dr. Timmons. Currently admitted with fever [...] Leukocytosis resolved. Afebrile. However blood cultures from [facility] positive for gram-positive cocci in 4 bottles. [...] charting completed later after rounds. Dictation software, Webshoz, used which may contain error for similar [...] Date of Service: 03/18/14 1133 Status: Signed Ticketing Clerk: Kisha Tello MD (Physician) [facility] Service: Infectious Disease Progress Note Hospital Day: [...] secondary to long-term dialysis; pres ented to [facility] on 03/14 with symptoms of cough, chills, myalgias, fevers. P atient was thought to have pneumonia, possible septicemia. Cultures were drawn and he was s tarted on vancomycin and Zosyn and levofloxacin. He was then shift to [facility] for further ma nagement. Recently had right arm brachial basilic fistula creation in January 2014. Blood cultures drawn at [facility] prior to transfer now showing gram-positive [...] drawn, antibiotics given and shifted initially to [facility] and then subsequently here. His medication [...] mg Intravenous See Admin Instructions vitamin B qymmjoh-Y-txasr acid 1 tablet Oral Daily Continuous Infusions [...] failure ASSESSMENT & PLAN Septicemia Fever with wrdvwwpdym-layw-obfjcdpv cocci seen in 4 out of 4 bottles drawn at [facility] Previous history has been with MSSA and [...] have not shown any vegetation. Reports from [facility] with regard to the bacteremia pending [...] Notes by Douglas Stevenson MD at 03/17/14 8357 Author: Douglas Stevenson MD Service: (none) Author Type: Physician Filed: 03/17/14 1329 Date of Service: 03/17/141326 Status: Signed Ticketing Clerk: Douglas Stevenson MD (Physician) [facility] Service: Hospitalist Progress Note Hospital Day: LOS: [...] . Code Status: Full Code Dictation and roofing technician or software, Webshoz, used which may contain error for similar [...] bicarbonate 1,300 mg Oral BID vitamin B arsqoeg-O-yxgos acid 1 tablet Oral Daily Continuous Infusions [...] Date of Service: 03/17/14 1125 Status: Signed Ticketing Clerk: Nakul Soria MD (Physician) PCP : [facility] LOS: 2 days Enrique Potter is a 48 y.o. male followed for ESRD management Significant PMH of ESRD secondary to Biopsy-proven Diabetic nephropathy who is dialyzed Saturday and at [place] dialysis unit via Left upper extremity brachio cephalic fistula DM2 Secondary hyperparathyroidism Anemia of chronic renal failure Treated with IV antibiotics for endocarditis in the past. Clotted AVF 11/04 when hospitalized at [facility] and had tunneled catheter placed. Right upper [...] who is dialyzed Saturday and Saturday at [place] dialysis unit using left IJ tunnel ed dialysis catheter (last HD 03/15/14). His primary wad blanking press adjuster is Dr. Timmons. Currently admitted with fever [...] charting completed later after rounds. Dictation software, Webshoz, used which may contain error for similar sounding words. Personal communication requested for any clarification. Prognosis guarded in view of multiple comorbid illnesses and ESRD Douglas Abraham MD - 2:44 PM PDT Progress Notes by Douglas Stevenson MD at 03/16/14 6032 Author: Douglas Stevenson MD Service: (none) Author Type: Physician Filed: 03/16/14 1128 Date of Service: 03/16/14 1763 Status: Signed Ticketing Clerk: Douglas Stevenson MD (Physician) [facility] Service: Hospitalist Progress Note Hospital Day: LOS: 1 day Consultants: Treatment Team: Consulting Physician: Nakul Soria MD Admitting Provider: Paulie Mcgarry MD The first problem in assessment is the principal problem. ASSESSMENT/ PLAN 1. Pneumonia: Most likely bacterial. Unclear which side. We'll try to get X ray report from [facility]. Continue Levaquin for now. Follow blood cultures from [facility]. Also to rule out any bacteremia [...] . Code Status: Full Code Dictation and roofing technician or software, [email or web address], used which may contain error for similar [...] bicarbonate 1,300 mg Oral BID vitamin B yaknwby-Z-gpshd acid 1 tablet Oral Daily Continuous Infusions [...] 03/15/142210 Date of Service: 03/15/142210 Status: Signed Ticketing Clerk: Kelley Toussaint RPH (Pharmacist) Renal Dosing [...] Author: VANDANA Almaguer Service: (none) Author Type: Digital Marketer Filed: 03/15/142114 Date of Service: 03/15/142107 Status: Signed Ticketing Clerk: VANDANA Almaguer (Digital Marketer) 03/15/142105 Discharge Planning Evaluation Admitting Diagnosis sepsis [...] Margarita to relay msg to spouse - [phone] Mental Status Oriented Power of Tile Sorter Yes Power of Tile Sorter Name Spouse Resources Financial concerns No Transportation issues No Patient/Family concerns No Prescription Plan Yes Name of Pharmacy [facility] Met with pt to discuss discharge planning, Pt is a 48 y.o., male Pt does not drive or work. He is not on home O2. He has dialysis at [facility] in [place] M/ W/F. He is not engaged in any other o/p medical services. He denies taking a blood thinner . He sees his PCP regularly. He does not see any other providers routinely. Pt has good f/u and excellent social support. No needs identified at this time. Patient's PCP is: [facility] Patient's insurance: Medicare / Medicaid / [facility] Coverage concerns: n/a Medication coverage/concerns: n/a Community [...] | | | | performed at [facility], [address] | | LAB | | | | [address], | | | | | | [place] [address] | | | | + + + + + + | RED CELL | 3.53 (L)Comment: Testing | 4.20 - 5.70 | EXTERNAL | | | COUNT | performed at [facility], [address] | [address]L | LAB | | | | [address], | | | | | | [place] [address] | | | | + + + + + + | Hgb | 10.8 (L)Comment: Testing | 13.2 - 17.0 | EXTERNAL | | | | performed at [facility], [address] | g/dL | LAB | | | | [address], | | | | | | [place] [address] | | | | + + + + + + | Hematocrit, | 31.6 (L)Comment: Testing | 39.0 - 50.0 % | EXTERNAL | | | POC | performed at [facility], [address] | | LAB | | | | [address], | | | | | | [place] [address] | | | | + + + + + + | MCV | 89.5Comment: Testing | 80.0 - 100.0 fl | EXTERNAL | | | | performed at [facility], [address] | | LAB | | | | [address], | | | | | | [place] [address] | | | | + + + + + + | MCH | 30.5Comment: Testing | 27.0 - 34.0 pg | EXTERNAL | | | | performed at [facility], [address] | | LAB | | | | [address], | | | | | | [place] [address] | | | | + + + + + + | MCHC | 34.0Comment: Testing | 32.0 - 35.5 | EXTERNAL | | | | performed at [facility], [address] | g/dL | LAB | | | | [address], | | | | | | [place] [address] | | | | + + + + + + | RDW-CV | 47.3Comment: Testing | 37 - 53 fl | EXTERNAL | | | | performed at [facility], [address] | | LAB | | | | [address], | | | | | | [place] [address] | | | | + + + + + + | Platelet | 167Comment: Testing | 150 - 400 K/uL | EXTERNAL | | | Count | performed at [facility], [address] | | LAB | | | Plasma | [address], | | | | | | [place] [address] | | | | + + + + + + | MPV | 8.0Comment: Testing | fl | EXTERNAL | | | | performed at [facility], [address] | | LAB | | | | [address], | | | | | | [place] [address] | | | | + + + + + + | Differentia | AUTOMATEDComment: | | EXTERNAL | | | l Type | Testing performed at | | LAB | | | | [facility], [address] | | | | | | [place] | | | | | | [address] | | | | + + + + + + | % Segmented | 62.6Comment: Testing | % | EXTERNAL | | | | performed at [facility], [address] | | LAB | | | Neutrophils | [address], | | | | | | [place] [address] | | | | + + + + + + | % | 14.8Comment: Testing | % | EXTERNAL | | | Lymphocytes | performed at [facility], [address] | | LAB | | | | [address], | | | | | | [place] [address] | | | | + + + + + + | % Monocytes | 20.2Comment: Testing | % | EXTERNAL | | | | performed at [facility], [address] | | LAB | | | | [address], | | | | | | [place] [address] | | | | + + + + + + | % | 1.7Comment: Testing | % | EXTERNAL | | | Eosinophils | performed at [facility], [address] | | LAB | | | | [address], | | | | | | [place] [address] | | | | + + + + + + | % Basophils | 0.7Comment: Testing | % | EXTERNAL | | | | performed at [facility], [address] | | LAB | | | | [address], | | | | | | [place] [address] | | | | + + + + + + | Absolute | 4.1Comment: Testing | 1.9 - 7.4 K/uL | EXTERNAL | | | Segmented | performed at [facility], [address] | | LAB | | | Neutrophils | [address], | | | | | | [place] [address] | | | | + + + + + + | Absolute | 1.0Comment: Testing | 1.0 - 3.9 K/uL | EXTERNAL | | | Lymphocytes | performed at [facility], [address] | | LAB | | | | [address], | | | | | | [place] [address] | | | | + + + + + + | Absolute | 1.3 (H)Comment: Testing | 0 - 0.8 K/uL | EXTERNAL | | | Monocytes | performed at [facility], [address] | | LAB | | | | [address], | | | | | | [place] [address] | | | | + + + + + + | Absolute | 0.1Comment: Testing | 0 - 0.5 K/uL | EXTERNAL | | | Eosinophils | performed at [facility], [address] | | LAB | | | | [address], | | | | | | [place] [address] | | | | + + + + + + | Absolute | 0.0Comment: Testing | 0 - 0.1 K/uL | EXTERNAL | | | Basophils | performed at [facility], [address] | | LAB | | | | [address], | | | | | | [place] [address] | | | | + + + [...] | | | | | [place] [address] | | | | + + + + + + | K | 3.6Comment: Testing | 3.5 - 4.9 | EXTERNAL | | | | performed at [facility], [address] | mmol/L | LAB | | | | [address], | | | | | | [place] [address] | | | | + + + + + + | Cl | 97 (L)Comment: Testing | 99 - 109 mmol/L | EXTERNAL | | | | performed at [facility], [address] | | LAB | | | | [address], | | | | | | [place] [address] | | | | + + + + + + | CO2 | 25Comment: Testing | 23 - 32 mmol/L | EXTERNAL | | | | performed at [facility], [address] | | LAB | | | | [address], | | | | | | [place] [address] | | | | + + + + + + | Anion Gap | 11Comment: Testing | 5 - 20 mmol/L | EXTERNAL | | | | performed at [facility], [address] | | LAB | | | | [address], | | | | | | [place] [address] | | | | + + + + + + | Glucose, | 91Comment: Testing | 65 - 99 mg/dL | EXTERNAL | | | Fasting | performed at [facility], [address] | | LAB | | | | [address], | | | | | | [place] [address] | | | | + + + + + + | BUN | 27 (H)Comment: Testing | 8 - 25 mg/dL | EXTERNAL | | | | performed at [facility], [address] | | LAB | | | | [address], | | | | | | [place] [address] | | | | + + + + + + | Creatinine | 4.91 (H)Comment: Testing | 0.70 - 1.30 | EXTERNAL | | | | performed at [facility], [address] | mg/dL | LAB | | | | [address], | | | | | | [place] [address] | | | | + + + + + + | BUN/Creatin | 5Comment: Testing | | EXTERNAL | | | ine Ratio | performed at [facility], [address] | | LAB | | | | [address], | | | | | | [place] [address] | | | | + + + + + + | Calcium | 8.1 (L)Comment: Testing | 8.5 - 10.2 | EXTERNAL | | | | performed at [facility], [address] | mg/dL | LAB | | | | [address], | | | | | | [place] [address] | | | | + + + [...] | | | | | [place] [address] | | | | + + + [...] | | | | performed at [facility], [address] | | LAB | | | | [address], | | | | | | [place] [address] | | | | + + + + + + | RED CELL | 3.50 (L)Comment: Testing | 4.20 - 5.70 | EXTERNAL | | | COUNT | performed at [facility], [address] | M/uL | LAB | | | | [address], | | | | | | [place] [address] | | | | + + + + + + | Hgb | 10.6 (L)Comment: Testing | 13.2 - 17.0 | EXTERNAL | | | | performed at [facility], [address] | g/dL | LAB | | | | [address], | | | | | | [place] [address] | | | | + + + + + + | Hematocrit, | 31.2 (L)Comment: Testing | 39.0 - 50.0 % | EXTERNAL | | | POC | performed at [facility], [address] | | LAB | | | | [address], | | | | | | [place] [address] | | | | + + + + + + | MCV | 89.1Comment: Testing | 80.0 - 100.0 fl | EXTERNAL | | | | performed at [facility], [address] | | LAB | | | | [address], | | | | | | [place] [address] | | | | + + + + + + | MCH | 30.2Comment: Testing | 27.0 - 34.0 pg | EXTERNAL | | | | performed at [facility], [address] | | LAB | | | | [address], | | | | | | [place] [address] | | | | + + + + + + | MCHC | 33.9Comment: Testing | 32.0 - 35.5 | EXTERNAL | | | | performed at [facility], [address] | g/dL | LAB | | | | [address], | | | | | | [place] [address] | | | | + + + + + + | RDW-CV | 47.7Comment: Testing | 37 - 53 fl | EXTERNAL | | | | performed at [facility], [address] | | LAB | | | | [address], | | | | | | [place] [address] | | | | + + + + + + | Platelet | 131 (L)Comment: Testing | 150 - 400 K/uL | EXTERNAL | | | Count | performed at [facility], [address] | | LAB | | | Plasma | [address], | | | | | | [place] [address] | | | | + + + + + + | MPV | 8.6Comment: Testing | fl | EXTERNAL | | | | performed at [facility], [address] | | LAB | | | | [address], | | | | | | [place] [address] | | | | + + + + + + | Differentia | AUTOMATEDComment: | | EXTERNAL | | | l Type | Testing performed at | | LAB | | | | [facility], [address] | | | | | | [place] | | | | | | [address] | | | | + + + + + + | % Segmented | 72.3Comment: Testing | % | EXTERNAL | | | | performed at [facility], [address] | | LAB | | | Neutrophils | [address], | | | | | | [place] [address] | | | | + + + + + + | % | 11.9Comment: Testing | % | EXTERNAL | | | Lymphocytes | performed at [facility], [address] | | LAB | | | | [address], | | | | | | [place] [address] | | | | + + + + + + | % Monocytes | 14.2Comment: Testing | % | EXTERNAL | | | | performed at [facility], [address] | | LAB | | | | [address], | | | | | | [place], [place] [address] | | | | + + + + + + | % | 1.0Comment: Testing | % | EXTERNAL | | | Eosinophils | performed at [facility], [address] | | LAB | | | | [address], | | | | | | [place] [address] | | | | + + + + + + | % Basophils | 0.6Comment: Testing | % | EXTERNAL | | | | performed at [facility], [address] | | LAB | | | | [address], | | | | | | [place] [address] | | | | + + + + + + | Absolute | 6.6Comment: Testing | 1.9 - 7.4 K/uL | EXTERNAL | | | Segmented | performed at [facility], [address] | | LAB | | | Neutrophils | [address], | | | | | | [place], [place] [address] | | | | + + + + + + | Absolute | 1.1Comment: Testing | 1.0 - 3.9 K/uL | EXTERNAL | | | Lymphocytes | performed at [facility], [address] | | LAB | | | | [address], | | | | | | [place] [address] | | | | + + + + + + | Absolute | 1.3 (H)Comment: Testing | 0 - 0.8 K/uL | EXTERNAL | | | Monocytes | performed at [facility], [address] | | LAB | | | | [address], | | | | | | [place] [address] | | | | + + + + + + | Absolute | 0.1Comment: Testing | 0 - 0.5 K/uL | EXTERNAL | | | Eosinophils | performed at [facility], [address] | | LAB | | | | [address], | | | | | | [place] [address] | | | | + + + + + + | Absolute | 0.1Comment: Testing | 0 - 0.1 K/uL | EXTERNAL | | | Basophils | performed at [facility], [address] | | LAB | | | | [address], | | | | | | [place] [address] | | | | + + + [...] | | | | | [place] [address] | | | | + + + + + + | K | 3.6Comment: Testing | 3.5 - 4.9 | EXTERNAL | | | | performed at [facility], [address] | mmol/L | LAB | | | | [address], | | | | | | [place] [address] | | | | + + + + + + | Cl | 94 (L)Comment: Testing | 99 - 109 mmol/L | EXTERNAL | | | | performed at [facility], [address] | | LAB | | | | [address], | | | | | | [place] [address] | | | | + + + + + + | CO2 | 23Comment: Testing | 23 - 32 mmol/L | EXTERNAL | | | | performed at [facility], [address] | | LAB | | | [address], | | | | | | [place] [address] | | | | + + + + + + | Anion Gap | 15Comment: Testing | 5 - 20 mmol/L | EXTERNAL | | | | performed at [facility], [address] | | LAB | | | | [address], | | | | | | [place] [address] | | | | + + + + + + | Glucose, | 127 (H)Comment: Testing | 65 - 99 mg/dL | EXTERNAL | | | Fasting | performed at [facility], [address] | | LAB | | | | [address], | | | | | | [place] [address] | | | | + + + + + + | BUN | 49 (H)Comment: Testing | 8 - 25 mg/dL | EXTERNAL | | | | performed at [facility], [address] | | LAB | | | | [address], | | | | | | [place] [address] | | | | + + + + + + | Creatinine | 7.33 (H)Comment: Testing | 0.70 - 1.30 | EXTERNAL | | | | performed at [facility], [address] | mg/dL | LAB | | | | [address], | | | | | | [place] [address] | | | | + + + + + + | BUN/Creatin | 7Comment: Testing | | EXTERNAL | | | ine Ratio | performed at [facility], [address] | | LAB | | | | [address], | | | | | | [place] [address] | | | | + + + + + + | Calcium | 8.6Comment: Testing | 8.5 - 10.2 | EXTERNAL | | | | performed at [facility], [address] | mg/dL | LAB | | | | [address], | | | | | | [place] [address] | | | | + + + [...] | | | | | [place] [address] | | | | + + + [...] HAND | | | Testing performed at [facility];[address] | | | [facility];[place] [address] CULTURE | | | NO GROWTH | | | Testing performed at [facility], [address] [facility], [place], [place] | | | [address] | | + + + + +---------+ [...] | | | | performed at [facility], [address] | | LAB | | | | [address], | | | | | | [place] [address] | | | | + + + + + + | RED CELL | 3.28 (L)Comment: Testing | 4.20 - 5.70 | EXTERNAL | | | COUNT | performed at [facility], [address] | M/uL | LAB | | | | [address], | | | | | | [place] [address] | | | | + + + + + + | Hgb | 9.8 (L)Comment: Testing | 13.2 - 17.0 | EXTERNAL | | | | performed at [facility], [address] | g/dL | LAB | | | | [address], | | | | | | [place] [address] | | | | + + + + + + | Hematocrit, | 29.6 (L)Comment: Testing | 39.0 - 50.0 % | EXTERNAL | | | POC | performed at [facility], [address] | | LAB | | | | [address], | | | | | | [place] [address] | | | | + + + + + + | MCV | 90.2Comment: Testing | 80.0 - 100.0 fl | EXTERNAL | | | | performed at [facility], [address] | | LAB | | | | [address], | | | | | | [place] [address] | | | | + + + + + + | MCH | 29.8Comment: Testing | 27.0 - 34.0 pg | EXTERNAL | | | | performed at [facility], [address] | | LAB | | | | [address], | | | | | | [place] [address] | | | | + + + + + + | MCHC | 33.1Comment: Testing | 32.0 - 35.5 | EXTERNAL | | | | performed at [facility], [address] | g/dL | LAB | | | | [address], | | | | | | [place] [address] | | | | + + + + + + | RDW-CV | 47.3Comment: Testing | 37 - 53 fl | EXTERNAL | | | | performed at [facility], [address] | | LAB | | | | [address], | | | | | | [place] [address] | | | | + + + + + + | Platelet | 93 (L)Comment: Testing | 150 - 400 K/uL | EXTERNAL | | | Count | performed at [facility], [address] | | LAB | | | Plasma | [address], | | | | | | [place] [address] | | | | + + + + + + | MPV | 8.9Comment: Testing | fl | EXTERNAL | | | | performed at [facility], [address] | | LAB | | | | [address], | | | | | | [place] [address] | | | | + + + + + + | Differentia | MANUALComment: Testing | | EXTERNAL | | | l Type | performed at [facility], [address] | | LAB | | | | [address], | | | | | | [place] [address] | | | | + + + + + + | Segmented | 78Comment: Testing | % | EXTERNAL | | | Neutrophils | performed at [facility], [address] | | LAB | | | Manual | [address], | | | | | | [place] [address] | | | | + + + + + + | % Bands | 1Comment: Testing | % | EXTERNAL | | | | performed at [facility], [address] | | LAB | | | | [address], | | | | | | [place] [address] | | | | + + + + + + | Lymphocytes | 7Comment: Testing | % | EXTERNAL | | | Manual | performed at [facility], [address] | | LAB | | | | [address], | | | | | | [place] [address] | | | | + + + + + + | Monocytes | 14Comment: Testing | % | EXTERNAL | | | Manual | performed at [facility], [address] | | LAB | | | | [address], | | | | | | [place] [address] | | | | + + + + + + | Absolute | 7.0Comment: Testing | 1.9 - 7.4 K/uL | EXTERNAL | | | Neutrophils | performed at [facility], [address] | | LAB | | | | [address], | | | | | | [place] [address] | | | | + + + + + + | Bands | 0.1Comment: Testing | 0 - 0.2 K/uL | EXTERNAL | | | Manual | performed at [facility], [address] | | LAB | | | | [address], | | | | | | [place] [address] | | | | + + + + + + | Absolute | 0.6 (L)Comment: Testing | 1.0 - 3.9 K/uL | EXTERNAL | | | Lymphocytes | performed at [facility], [address] | | LAB | | | | [address], | | | | | | [place] [address] | | | | + + + + + + | Absolute | 1.3 (H)Comment: Testing | 0 - 0.8 K/uL | EXTERNAL | | | Monocytes | performed at [facility], [address] | | LAB | | | | [facility], | | | | | | [place] [address] | | | | + + + + + + | RBC | RBC AND PLT MORPHOLOGY | | EXTERNAL | | | Morphology | APPEAR NORMALComment: | | LAB | | | | Testing performed at | | | | | | [facility], [address] | | | | | | [place] | | | | | | [address] | | | | + + + [...] | | | | | [place] [address] | | | | + + + + + + | K | 3.5Comment: Testing | 3.5 - 4.9 | EXTERNAL | | | | performed at [facility], [address] | mmol/L | LAB | | | | [address], | | | | | | [place] [address] | | | | + + + + + + | Cl | 93 (L)Comment: Testing | 99 - 109 mmol/L | EXTERNAL | | | | performed at [facility], [address] | | LAB | | | | [address], | | | | | | [place] [address] | | | | + + + + + + | CO2 | 27Comment: Testing | 23 - 32 mmol/L | EXTERNAL | | | | performed at [facility], [address] | | LAB | | | | [address], | | | | | | [place] [address] | | | | + + + + + + | Anion Gap | 11Comment: Testing | 5 - 20 mmol/L | EXTERNAL | | | | performed at [facility], [address] | | LAB | | | | [address], | | | | | | [place] [address] | | | | + + + + + + | Glucose, | 123 (H)Comment: Testing | 65 - 99 mg/dL | EXTERNAL | | | Fasting | performed at [facility], [address] | | LAB | | | | [address], | | | | | | [place] [address] | | | | + + + + + + | BUN | 31 (H)Comment: Testing | 8 - 25 mg/dL | EXTERNAL | | | | performed at [facility], [address] | | LAB | | | | [address], | | | | | | [place] [address] | | | | + + + + + + | Creatinine | 5.28 (H)Comment: Testing | 0.70 - 1.30 | EXTERNAL | | | | performed at [facility], [address] | mg/dL | LAB | | | | [address], | | | | | | [place] [address] | | | | + + + + + + | BUN/Creatin | 6Comment: Testing | | EXTERNAL | | | ine Ratio | performed at [facility], [address] | | LAB | | | | [address], | | | | | | [place] [address] | | | | + + + + + + | Calcium | 7.8 (L)Comment: Testing | 8.5 - 10.2 | EXTERNAL | | | | performed at [facility], [address] | mg/dL | LAB | | | | [address], | | | | | | [place] [address] | | | | + + + [...] W | | | | | | [address], | | | | | | [place] [address] | | | | + + + [...] HAND | | | Testing performed at [facility];[address] | | | [facility];[place] [address] CULTURE | | | NO GROWTH | | | Testing performed at [facility], [address] [facility], [place], [place] | | | [address] | | + + + + +---------+ [...] Martinez IN 6RP ON 03/18/14 AT 1620 BRANCH OFFICER CULTURE | | | STAPHYLOCOCCUS AUREUSAbnormal | | | FINDING OF ORGANISM GROWTHAbnormal | | | TIME TO DETECTION: | | | 0.95 DAYS | | | Testing performed at [facility], | | | [address] [place] [address] Suscepibility for - | | | STAPHYLOCOCCUS [...] | | | | performed at [facility], [address] | | LAB | | | | [address], | | | | | | [place] [address] | | | | + + + + + + | RED CELL | 3.57 (L)Comment: Testing | 4.20 - 5.70 | EXTERNAL | | | COUNT | performed at [facility], [address] | M/uL | LAB | | | | [address], | | | | | | [place] [address] | | | | + + + + + + | Hgb | 10.6 (L)Comment: Testing | 13.2 - 17.0 | EXTERNAL | | | | performed at [facility], [address] | g/dL | LAB | | | | [address], | | | | | | [place] [address] | | | | + + + + + + | Hematocrit, | 32.4 (L)Comment: Testing | 39.0 - 50.0 % | EXTERNAL | | | POC | performed at [facility], [address] | | LAB | | | | [address], | | | | | | [place] [address] | | | | + + + + + + | MCV | 90.8Comment: Testing | 80.0 - 100.0 fl | EXTERNAL | | | | performed at [facility], [address] | | LAB | | | | [address], | | | | | | [place] [address] | | | | + + + + + + | MCH | 29.8Comment: Testing | 27.0 - 34.0 pg | EXTERNAL | | | | performed at [facility], [address] | | LAB | | | | [address], | | | | | | [place] [address] | | | | + + + + + + | MCHC | 32.8Comment: Testing | 32.0 - 35.5 | EXTERNAL | | | | performed at [facility], [address] | g/dL | LAB | | | | [address], | | | | | | [place], [place] [address] | | | | + + + + + + | RDW-CV | 48.6Comment: Testing | 37 - 53 fl | EXTERNAL | | | | performed at [facility], [address] | | LAB | | | | [address], | | | | | | [place] [address] | | | | + + + [...] | | | | | [place] [address] | | | | + + + + + + | Differentia | MANUALComment: Testing | | EXTERNAL | | | l Type | performed at [facility], [address] | | LAB | | | | [address], | | | | | | [place] [address] | | | | + + + + + + | Segmented | 69Comment: Testing | % | EXTERNAL | | | Neutrophils | performed at [facility], [address] | | LAB | | | Manual | [address], | | | | | | [place] [address] | | | | + + + + + + | % Bands | 15Comment: Testing | % | EXTERNAL | | | | performed at [facility], [address] | | LAB | | | | [address], | | | | | | [place] [address] | | | | + + + + + + | % | 1Comment: Testing | % | EXTERNAL | | | Metamyelocy | performed at [facility], [address] | | LAB | | | [address], | | | | | | [place] [address] | | | | + + + + + + | Lymphocytes | 11Comment: Testing | % | EXTERNAL | | | Manual | performed at [facility], [address] | | LAB | | | | [address], | | | | | | [place] [address] | | | | + + + [...] | | | | | | [place] [address] | | | | + + + + + + | Bands | 1.4 (H)Comment: Testing | 0 - 0.2 K/uL | EXTERNAL | | | Manual | performed at [facility], [address] | | LAB | | | | [address], | | | | | | [place] [address] | | | | + + + + + + | Absolute | 0.1 (H)Comment: Testing | K/uL | EXTERNAL | | | Metamyelocy | performed at [facility], [address] | | LAB | | | [address] | [address], | | | | | | [place] [address] | | | | + + + + + + | Absolute | 1.1Comment: Testing | 1.0 - 3.9 K/uL | EXTERNAL | | | Lymphocytes | performed at [facility], [address] | | LAB | | | | [address], | | | | | | [place] [address] | | | | + + + + + + | Absolute | 0.4Comment: Testing | 0 - 0.8 K/uL | EXTERNAL | | | Monocytes | performed at [facility], [address] | | LAB | | | | [facility], | | | | | | [place] [address] | | | | + + + + + + | RBC | RBC AND PLT MORPHOLOGY | | EXTERNAL | | | Morphology | APPEAR NORMALComment: | | LAB | | | | Testing performed at | | | | | | [facility], [address] [facility] | | | | | | [place] | | | | | | [address] | | | | + + + [...] | | | | | [place] [address] | | | | + + + + + + | K | 3.9Comment: Testing | 3.5 - 4.9 | EXTERNAL | | | | performed at [facility], [address] | mmol/L | LAB | | | | [place], | | | | | | [place] [address] | | | | + + + + + + | Cl | 91 (L)Comment: Testing | 99 - 109 mmol/L | EXTERNAL | | | | performed at [facility], [address] | | LAB | | | | [address], | | | | | | [place] [address] | | | | + + + + + + | CO2 | 25Comment: Testing | 23 - 32 mmol/L | EXTERNAL | | | | performed at [facility], [address] | | LAB | | | | [address], | | | | | | [place] [address] | | | | + + + + + + | Anion Gap | 15Comment: Testing | 5 - 20 mmol/L | EXTERNAL | | | | performed at [facility], [address] | | LAB | | | [address], | | | | | | [place] [address] | | | | + + + + + + | Glucose, | 108 (H)Comment: Testing | 65 - 99 mg/dL | EXTERNAL | | | Fasting | performed at [facility], [address] | | LAB | | | | [address], | | | | | | [place] [address] | | | | + + + + + + | BUN | 55 (H)Comment: Testing | 8 - 25 mg/dL | EXTERNAL | | | | performed at [facility], [address] | | LAB | | | | [address], | | | | | | [place] [address] | | | | + + + + + + | Creatinine | 8.10 (H)Comment: Testing | 0.70 - 1.30 | EXTERNAL | | | | performed at [facility], [address] | mg/dL | LAB | | | | [address] [place], | | | | | | [place] [address] | | | | + + + + + + | BUN/Creatin | 7Comment: Testing | | EXTERNAL | | | ine Ratio | performed at [facility], [address] | | LAB | | | | [place], | | | | | | [place] [address] | | | | + + + + + + | Calcium | 8.2 (L)Comment: Testing | 8.5 - 10.2 | EXTERNAL | | | | performed at [facility], [address] | mg/dL | LAB | | | | [place], | | | | | | [place] [address] | | | | + + + [...] [place], | | | | | | [place] [address] | | | | + + + [...] | | | Fingerstick | performed at [facility];[address] | | LAB | | | | [address] [place] | | | | | | [address] | | | | + + + [...] [place] | | | | | | [address] | | | | + + + + + + | RED CELL | 3.62 (L)Comment: Testing | 4.20 - 5.70 | EXTERNAL | | | COUNT | performed at [facility];[address] | M/uL | LAB | | | | [address];[place] | | | | | | [address] | | | | + + + + + + | Hgb | 10.9 (L)Comment: Testing | 13.2 - 17.0 | EXTERNAL | | | | performed at [facility];[address] | g/dL | LAB | | | | [address];[place] | | | | | | [address] | | | | + + + + + + | Hematocrit, | 32.5 (L)Comment: Testing | 39.0 - 50.0 % | EXTERNAL | | | POC | performed at [facility];[address] | | LAB | | | | [address];[place] | | | | | | [address] | | | | + + + + + + | MCV | 89.9Comment: Testing | 80.0 - 100.0 fl | EXTERNAL | | | | performed at [facility];[address] | | LAB | | | | [address];[place] | | | | | | [address] | | | | + + + + + + | MCH | 30.0Comment: Testing | 27.0 - 34.0 pg | EXTERNAL | | | | performed at [facility];[address] | | LAB | | | | [address];[place] | | | | | | [address] | | | | + + + + + + | MCHC | 33.4Comment: Testing | 32.0 - 35.5 | EXTERNAL | | | | performed at [facility];[address] | g/dL | LAB | | | | [address];[place] | | | | | | [address] | | | | + + + + + + | RDW-CV | 49.4Comment: Testing | 37 - 53 fl | EXTERNAL | | | | performed at [facility];[address] | | LAB | | | | [address];[place] | | | | | | [address] | | | | + + + + + + | Platelet | 81 (L)Comment: Testing | 150 - 400 K/uL | EXTERNAL | | | Count | performed at [facility];[address] | | LAB | | | Plasma | [address];[place] | | | | | | [address] | | | | + + + + + + | MPV | 8.7Comment: Testing | fl | EXTERNAL | | | | performed at [facility];[address] | | LAB | | | | [address];[place] | | | | | | [address] | | | | + + + + + + | Differentia | MANUALComment: Testing | | EXTERNAL | | | l Type | performed at [facility];[address] | | LAB | | | | [address];[place] | | | | | | [address] | | | | + + + + + + | Segmented | 70Comment: Testing | % | EXTERNAL | | | Neutrophils | performed at [facility];[address] | | LAB | | | Manual | [address];[place] | | | | | | [address] | | | | + + + + + + | % Bands | 19Comment: Testing | % | EXTERNAL | | | | performed at [facility];[address] | | LAB | | | | [address];[place] | | | | | | [address] | | | | + + + + + + | Lymphocytes | 4Comment: Testing | % | EXTERNAL | | | Manual | performed at [facility];[address] | | LAB | | | | [address];[place] | | | | | | [address] | | | | + + + + + + | Monocytes | 7Comment: Testing | % | EXTERNAL | | | Manual | performed at [facility];[address] | | LAB | | | | [address];[place] | | | | | | [address] | | | | + + + + + + | Absolute | 8.3 (H)Comment: Testing | 1.9 - 7.4 K/uL | EXTERNAL | | | Neutrophils | performed at [facility];[address] | | LAB | | | | [address] [place] | | | | | | [address] | | | | + + + + + + | Bands | 2.3 (H)Comment: Testing | 0 - 0.2 K/uL | EXTERNAL | | | Manual | performed at [facility];[address] | | LAB | | | | [address];[place] | | | | | | [address] | | | | + + + + + + | Absolute | 0.5 (L)Comment: Testing | 1.0 - 3.9 K/uL | EXTERNAL | | | Lymphocytes | performed at [facility];[address] | | LAB | | | | [address];[place] | | | | | | [address] | | | | + + + [...] at | | | | | | [facility];[address];[place] [address] | | | | + + + [...] | | | | performed at [facility], [address] | | LAB | | | | [place], | | | | | | [place] [address] | | | | + + + [...] | | | | | [place] [address] | | | | + + + [...] | | | | | [place] [address] | | | | + + + + + + | K | 4.0Comment: Testing | 3.5 - 4.9 | EXTERNAL | | | | performed at [facility], [address] | mmol/L | LAB | | | | [address], | | | | | | [place] [address] | | | | + + + + + + | Cl | 93 (L)Comment: Testing | 99 - 109 mmol/L | EXTERNAL | | | | performed at [facility], [address] | | LAB | | | | [address], | | | | | | [place] [address] | | | | + + + + + + | CO2 | 26Comment: Testing | 23 - 32 mmol/L | EXTERNAL | | | | performed at [facility], [address] | | LAB | | | | [address], | | | | | | [place] [address] | | | | + + + + + + | Anion Gap | 14Comment: Testing | 5 - 20 mmol/L | EXTERNAL | | | | performed at [facility], [address] | | LAB | | | | [address], | | | | | | [place] [address] | | | | + + + + + + | Glucose, | 131 (H)Comment: Testing | 65 - 99 mg/dL | EXTERNAL | | | Fasting | performed at [facility], [address] | | LAB | | | | [address], | | | | | | [place] [address] | | | | + + + + + + | BUN | 33 (H)Comment: Testing | 8 - 25 mg/dL | EXTERNAL | | | | performed at [facility], [address] | | LAB | | | | [address], | | | | | | [place] [address] | | | | + + + + + + | Creatinine | 5.86 (H)Comment: Testing | 0.70 - 1.30 | EXTERNAL | | | | performed at [facility], [address] | mg/dL | LAB | | | | [address], | | | | | | [place] [address] | | | | + + + + + + | BUN/Creatin | 6Comment: Testing | | EXTERNAL | | | ine Ratio | performed at [facility], [address] | | LAB | | | [address], | | | | | | [place] [address] | | | | + + + + + + | Calcium | 7.8 (L)Comment: Testing | 8.5 - 10.2 | EXTERNAL | | | | performed at [facility], [address] | mg/dL | LAB | | | | [address], | | | | | | [place] [address] | | | | + + + [...] | | | | | at [facility], [address] | | | | | | [place], | | | | | | [place] [address] | | | | + + + [...] ICA | | | Testing performed at [facility];[address] [place] [address];[place] [address] | | + + + + +---------+ [...] | + + | ESRD on hemodialysis ([facility]) End stage renal disease | + + | Diabetes mellitus with ESRD (end-stage renal disease) ([facility]) Type II or unspecified | | type [...]
--- OUTSIDE RECORDS SUMMARY | ~2019-05-20 | XMS | Encounter Summary ---
Demographics + + + | Address | [address] | | | [place] [address] | + + + | Home Phone | | + + + | Preferred Language | Unknown | + + + | Marital Status | Unknown | + + + | Mu-Ism Affiliation | [id number] | + + + | Race | Unknown | + + + | Ethnic Group | Unknown | + + + Author + + + | Author | [facility] | | | and [place] | + + + | Organization | [facility] | | [...] Team Providers + +------+ + | Care Petroleum Geologist Name | Role | Phone | + +------+ + PCP | Unavailable | + +------+ + Encounter Details +--------+ + + + + | Date | Type | Department | Care Team | Description | +--------+ + + + + | 10/05/ | Hospital | [facility] | Conversion | End stage renal | | 2016 | Encounter | CENTER CV INTRA OP | Transaction, | disease (HCC) | | | | [address] | Provider Unknown | | | | | [place], [place] | [phone] | | | | | [address] | | | | | | [phone] | Uriel Sawyer, | | | | | | [address] | | | | | | [place], [place] | | | | | | [address] | | | | | | | [...] 10/06/151432 Date of Service: 10/06/151431 Status: Signed University Teacher: Randi Verduzco RN (Registered Nurse) Procedure complete. [...] distal subclavian vein with the good collaterals. 53762, | | | 304[address], [address]5110 Electronically signed by Uriel Sawyer MD on [...] conscious sedation | | | and independent care home supervision performed throughout the | | | [...] | | | needle and exchanged for 4-Guamanian micropuncture sheath. Initial | | | fistula pressure was obtained and fistulogram obtained from the | | | right cubital fossa to the right atrium. 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 4-Guamanian micropuncture sheath was exchanged for | | | 6-Guamanian short sheath over a 0.035, angled Glidewire. [...] using combination of 4 | | | Guamanian angled glide catheter and 0.035 angled Glidewire [...] adequate conscious | | sedation and independent care home supervision performed throughout the | | procedure. [...] | | micropuncture needle and exchanged for 4-Guamanian micropuncture sheath. Initial fistula | | pressure was obtained and fistulogram obtained from the right cubital fossa to the | | right atrium. Given the focal, more than 70 percent stenosis in the mid right cephalic | | vein and occluded distal right subclavian vein, I decided to perform angioplasty of the | | venous lesions. 4-Guamanian micropuncture sheath was exchanged for 6-Guamanian short sheath | | over a 0.035, [...] Then, | | using combination of 4 Guamanian angled glide catheter and 0.035 angled Glidewire [...] vein with the good | | collaterals. 66810, 48249, 05587 Electronically signed by Uriel Sawyer MD on | | 10/06/2015 3:32 PM | | | |01529, 93214, [address] | | | | | + + [...] distal subclavian vein with the good collaterals. 887[address], | | | 424[address], 63838 Electronically signed by Uriel Sawyer MD on [...] conscious sedation | | | and independent care home supervision performed throughout the | | | [...] | | | needle and exchanged for 4-Guamanian micropuncture sheath. Initial | | | fistula pressure was obtained and fistulogram obtained from the | | | right cubital fossa to the right atrium. 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 4-Guamanian micropuncture sheath was exchanged for | | | 6-Guamanian short sheath over a 0.035, angled Glidewire. [...] using combination of 4 | | | Guamanian angled glide catheter and 0.035 angled Glidewire [...] adequate conscious | | sedation and independent care home supervision performed throughout the | | procedure. [...] | | micropuncture needle and exchanged for 4-Guamanian micropuncture sheath. Initial fistula | | pressure was obtained and fistulogram obtained from the right cubital fossa to the | | right atrium. Given the focal, more than 70 percent stenosis in the mid right cephalic | | vein and occluded distal right subclavian vein, I decided to perform angioplasty of the | | venous lesions. 4-Guamanian micropuncture sheath was exchanged for 6-Guamanian short sheath | | over a 0.035, [...] Then, | | using combination of 4 Guamanian angled glide catheter and 0.035 angled Glidewire [...] vein with the good | | collaterals. 53553, 36076, 32787 Electronically signed by Uriel Sawyer MD on | | 10/06/2015 3:32 PM | | | |41076, 62439, 07140 | | | | | + + documented in this encounter Visit Diagnoses + + | Diagnosis | + + | End stage renal disease (HCC) End stage renal disease | + + documented in this encounter
--- OUTSIDE RECORDS SUMMARY | ~2019-05-20 | XMS | Encounter Summary ---
Demographics + + + | Address | [address] | | | [place] [address] | + + + | Home Phone [...] Team Providers + +------+ + | Care Atomic Spectroscopist Name | Role | Phone | + +------+ + PCP | Unavailable | + +------+ + Encounter Details +--------+ + + + + | Date | Type | Department | Care Team | Description | +--------+ + + + + | 07/03/ | Hospital | [facility] | | | | 2010 | Encounter | MED [facility] GENERIC OP | | | | | | CONV DEPT [address] | | | | | | [place], | | | | | | [place] [address] | | | | | | [phone] | | | +--------+ + + + [...]
--- OUTSIDE RECORDS SUMMARY | ~2019-05-20 | XMS | Encounter Summary ---
Demographics + + + | Address | [address] | | | [place] [address] | + + + | Home Phone [...] Team Providers + +------+ + | Care Small Parts Shaper Operator Name | Role | Phone | + +------+ + PCP | Unavailable | + +------+ + Encounter Details +--------+ + + + + | Date | Type | Department | Care Team | Description | +--------+ + + + + | 10/08/ | Hospital | [facility] | Katie, | Pain; Hyperkalemia; | | 2017 - | Encounter | [facility] | MD Frank [address] | ESRD (end stage | | | | CARE FLOOR [address] | renal disease) ([facility]) | | 10/09/ | | [address] | [place] [address] | | | 2016 | | [place], [place] | [phone] | | | | | [address] | | | | | | [phone] | | | +--------+ + + + [...] Service: Hospitalist Author Type: Physician Filed: 10/09/16 5278 Date of Service: 10/09/16 1501 Status: Signed Flame Cutting Supervisor: Gale Cuellar MD (Physician) [facility] Service: Hospitalist Physician Discharge Summary [...] chest pain Patient was recently discharged from [facility] on 09/17/16 for full note please [...] nocturnal dyspnea or orthopnea. He went to [facility] where he was found hyperkalemic with negative EKG signs of potassium toxicity. The patient received calcium gluconate, bicarbonate, albuterol and Kyde x leg. Patient refers that with these measures his chest discomfort disappeared, and since then he has remained chest pain-free. Patient was subsequently transferred to [facility] for further management and due to lack of md phrology coverage. ED provider already consulted nephrology, Dr. Soria. Patient will be admitted under the hospital service for further management." 10/09/16 For Discharge: Patient admitted for: Chest Pain (resolved) with elevated K+-7.2 (at [facility]). K-6.2 here at [facility] 08/2016 echocardiogram-overall left ventricular systolic function [...] upper quadrant 04/13/2012 Dialysis patient ([facility]) GI bleed 04/30/2012 from coumadin Walker as ambulation aid Gout Asthma pt not using inhaler any more, no symptoms DVT (deep venous thrombosis) ([facility]) x3 AV fistula ([facility]) lt arm Knee pain, right 07/06/2012 MSSA (methicillin susceptible Staphylococcus aureus) infection 04/11/2012 Anemia due to blood loss 04/30/2012 Amphetamine and other psychostimulant dependence, continuous 04/02/2012 Hyperphosphatemia 05/24/2012 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 Rash and nonspecific skin eruption 04/03/2012 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 Neuromuscular disorder ([facility]) neuropathy Hyperkalemia 11/09/2013 Chronic obstructive asthma with exacerbation ([facility]) 10/27/2013 SOB (shortness of breath) 10/27/2013 Diabetes mellitus type I ([facility]) Hyponatremia 09/08/2016 Chronic systolic heart failure ([facility]) 09/10/2016 Past Surgical History Procedure Laterality Date Unlisted procedure arthroscopy shoulder rt , ligaments Superficialization of av fistula Right 03/30/2014 Procedure: AV FISTULA - SUPERFICIALIZATION; Surgeon: Oskar Meyer MD; Location: [facility]; Service: Vascular; Laterality: Right; Av fistula placement Right 02/09/2014 Procedure: AV FISTULA; Surgeon: Oskar Meyer MD; Location: [facility] MAIN OR; Service: Vascul ar; Laterality: Right; Av fistula repair Left 07/11/2012 Procedure: AV FISTULA - GRAFT REPAIR/REVISION; Surgeon: Oskar Meyer MD; Location: [facility] OR; Service: Vascular; Laterality: Left; Superficialization of brachiobasilic fistula and right IJ perm cath insertion Dialysis fistula creation Left 07/11/2012 Procedure: DIALYSIS CATHETER - INSERTION; Surgeon: Oskar Meyer MD; Location: [facility] MAIN O R; Service: Vascular; Laterality: Left; removed dialysis catheter from left neck and plac ed new on in left chest, attempted in right neck but unable to place Catheter removal Right 07/07/2012 Procedure: DIALYSIS CATHETER - REMOVAL; Surgeon: Oskar Meyer MD; Location: [facility] BEDSIDE PROCEDURE; Service: General; Laterality: Right; perm cath Dialysis fistula creation Left 07/07/2012 Procedure: DIALYSIS CATHETER - INSERTION; Surgeon: Oskar Meyer MD; Location: [facility] BEDSID E PROCEDURE; Service: General; Laterality: [...] categorization. 1. [place] er[place] Heart Association and [employer] College [employer] Scientific Statement. Circulatio n (2008); 118: p 8094-3324 Echo Cardiac Adult Complete 10/09/2016 1. Overall [...] Self Care [place]: [place] [address] [place] [address] Medication List START taking these medications polyethylene [...] These medications were sent to [facility] [place], [place] - [address] [facility] [address] [place] [address] - polyethylene glycol packet Gale Cuellar MD [...] 10/09/166 Date of Service: 10/09/161444 Status: Signed Flame Cutting Supervisor: Lina Roberts RN (Registered Nurse) Discussed all [...] Service: Nephrology Author Type: Physician Filed: 10/09/16 7480 Date of Service: 10/09/16 1114 Status: Signed Flame Cutting Supervisor: Nakul Soria MD (Physician) [id number] Enrique Potter is a 51 y.o. man whose PCP is Dr. ANDRY DENG. He is known to have ESRD as per PMH> He was recently discharged from [facility] (admitted 09/07/16-09/15/16) where he had a complicated [...] of breath. He presented to ED at [facility] where he was found to have severe hyperkalemia (no EKG changes). He was treated medically and was transferred to [facility] for urgent dialysis. The pain resolved after treatment. At [facility] he was hypertensive without tachycardia/fever/hypoxia. Lab work [...] is dialyzed Saturday an d Saturday at [place] dialysis unit using right UE AVF (Dr. [...] outpatient HD MWF using right UE AVF. Ship Fitter evaluation for low K diet on follow [...] was completed later after rounds. Dictation software, Game[employer], was used which may contain error for [...] 10/09/167 Date of Service: 10/09/16445 Status: Signed Flame Cutting Supervisor: Hunter Cuello RN (Registered Nurse) Pt has been A/O x4, VSS, C/O pain x1, tylenol was given x1. Will continue to monitor. Afua Cuello RN. onver quique Transaction, Provider Unknown - 10/08/2016 4:59 PM PDT Nurse Progress Note by Augustus Rivers RN at 10/08/161658 Author: Augustus Rivers RN Service: (none) Author Type: Registered Nurse Filed: 10/08/16 170 Date of Service: 10/08/161658 Status: Signed Flame Cutting Supervisor: Augustus Rivers RN (Registered Nurse) Pt A&O, [...] 10/08/161611 Date of Service: 10/08/161609 Status: Signed Flame Cutting Supervisor: Tracey Maldonado RD (Registered Dietitian) 10/08/16 1600 [...] (none) Author Type: Registered Nurse Filed: 10/08/16 4060 Date of Service: 10/08/167 Status: Signed Flame Cutting Supervisor: Heber Escobar RN (Registered Nurse) 10/08/16 1226 [...] male who is independent and lives in [place]. He lives with his and 2 sons. Enrique doesn't use any DME and den ies having any concerns for discharge. Patient's PCP is:Dr. Deng Patient's insurance:Medicare/Medicare/[place] Coverage concerns:none Medication coverage/concerns: yes/no Community resources utilized / needed: [facility] Assistance in transportation: family Identification [...] 10/08/16619 Date of Service: 10/08/16618 Status: Signed Flame Cutting Supervisor: Yasmin Jordan RPH (Pharmacist) Lovenox dc'd by Dr. Yang JORDAN 10/08/2016 6:19 AM onver quique Transaction, Provider Unknown - 10/08/2016 6:18 AM PDT Progress Notes by Yasmin Jordan RPH at 10/08/16617 Author: Yasmin Jordan RPH Service: (none) Author Type: Pharmacist Filed: 10/08/16617 Date of Service: 10/08/16617 Status: Signed Flame Cutting Supervisor: Yasmin Jordan RPH (Pharmacist) Clinical Pharmacy Note: [...] | | | Fingerstick | performed at [facility];[address] | | LAB | | | | [address];[place], [place] | | | | | | [address] | | | | + + + [...] | | | Fingerstick | performed at [facility];[address] | | LAB | | | | [address];[place] | | | | | | [address] | | | | + + + [...] affecting final | | | categorization. 1. [employer] Heart Association and [employer] | | | College of Cardiology Scientific Statement. Circulation (2008); 118: p | | | 6401-7658 | | | 12:55 PM | | [...] potentially affecting final categorization. | | 1. [employer] Heart Association and [employer] College of [employer]iology Scientific Statement. | | Circulation (2007); 118: p 8956-4847 Electronically signed by Wilton Lentz MD on [...] | |final categorization. | | | |1. [employer] Heart Association and [employer] College of [employer] Scientific Statement. Cir culation (2007); 118: p 0699-7525 | | | | | + + [...] | | | Fingerstick | performed at [facility];[address] | | LAB | | | | [place] | | | | | | [address] [...] | | Basophils | performed at [facility], [address] | [address] | LAB | | | | [address] Jeffrey, | | | | | | [place] [address] | | | | + + + [...] | | | | performed at [facility], [address] | | LAB | | | | [place], | | | | | | [place] [address] | | | | + + + [...] | | | | | [place] [address] | | | | + + + [...] + + | Hemoglobin | 5.3Comment: The Armenian | 4.0 - 6.0 % | EXTERNAL [...] | | | | performed at [facility], [address] | | | | | | [place], | | | | | | [place] [address] | | | | + + + [...] | | | Direct | performed at [facility], [address] | | LAB | | | | [place], | | | | | | [place] [address] | | | | + + + [...] | | | Cholesterol | performed at [facility], [address] | | LAB | | | , | [place]anna [place], | | | | | Calculated, | [place] [address] | | | | | External | [...] W | | | | | | [facility], | | | | | | [place] [address] | | | | + + + [...] | | | Fingerstick | performed at [facility];[address] | | LAB | | | | [place] Jeffrey;[place] | | | | | | [address] | | | | + + + [...] W | | | | | | [facility], | | | | | | [place] [address] | | | | + + + [...] | | | Fingerstick | performed at [facility];[address] | | LAB | | | | [place] Jeffrey;[place] | | | | | | [address] | | | | + + + [...] | | | | | at [facility], [address] | | | | | | [facility], | | | | | | [place] [address] | | | | + + + + + + + + | Specimen | + + | Blood specimen | | (specimen) | + + + +---------+ + + | Performing | Address | City/State/[facility] Cent[facility]ode | Phone Number | | Organization [...] Excursion: 1.65 | | | cm E-F Forest: 0.08 m/s TAPSE: 1.81 cm IVC diameter: [...] 0.49 m/s TV | | | Dec Forest: 3.55 m/s2 TV Dec Time: 184.15 ms TV E Lenard: 0.64 | | | m/s TV E/A Ratio: 1.30 Aerial Hurricane Hunter: Authenticated by: | | | Masoud Macedo MD, RINA, JENNIFER, CAMPBELL Report Date/Time: -- | | | [id number] | | + + + + + [...] mlLAESV Index (A-L): 33.42 ml/m2LAAs A2C: 18.93 sm6VHNZD A-L | | A2C: 63.74 mlLALs A2C: 4.77 cmLAAs A4C: 18.86 hf5ZFQGA A-L A4C: 59.30 mlLALs | | A4C: 5.09 cmAo Diam: 3.22 cmAV Cusp: 2.15 cmLA Diam: 4.51 cmLA/Ao: 1.39%FS: | | 25.51 %EDV(Teich): 103.27 mlEF(Teich): 50.26 %ESV(Teich): 51.36 mlIVSd: 1.33 | | cmIVSs: 1.36 cmLVIDd: 4.71 cmLVIDs: 3.51 cmLVPWd: 1.07 cmLVPWs: 1.98 | | cmSV(Teich): 51.91 mlD-E Excursion: 1.65 cmE-F Forest: 0.08 m/sTAPSE: 1.81 cmIVC | | diameter: 2.60 cmIVC collapse: 1.04 cmIVC % collapse: 57.39 %HR: 81.40 BPMAV | | maxP.84 mmHgAV meanP.14 mmHgAV Vmax: 1.48 m/Suyapa Vmean: 1.09 m/Suyapa VTI: | | 31.92 cmAVA Vmax: 2.17 cm2AVA (VTI): 2.19 fa5MWTC Vmax: 0.00 cm2/m2AVAI (VTI): | | 0.00 cm2/m2LVCI Dopp: 2.93 l/eqfx0TRPD Dopp: 5.57 l/minHR: 79.54 BPMLVOT maxPG: | [...] VTI: 24.75 cmMVA (VTI): | | 2.82 zq4Gurjgg e': 0.08 m/sSeptal E/e': 13.19Lateral e': 0.10 [...] 2.37 m/sTV A Lenard: 0.49 m/sTV Dec Forest: 3.55 m/s2TV | | Dec Time: 184.15 msTV E Lenard: 0.64 m/sTV E/A Ratio: 1.30 Aerial Hurricane Hunter: | | ASAuthenticated by: Masoud Macedo MD, FACC, FACP, FASNCReport Date/Time: -- | | [id number] IMPRESSION: 1. Overall left ventricular systolic function [...] | |D-E Excursion: 1.65 cm | |E-F Forest: 0.08 m/s | |TAPSE: 1.81 cm | [...] A Lenard: 0.49 m/s | |TV Dec Forest: 3.55 m/s2 | |TV Dec Time: 184.15 ms | |TV E Lenard: 0.64 m/s | |TV E/A Ratio: 1.30 | | | |Aerial Hurricane Hunter: | |Authenticated by: Masoud Macedo MD, FACC, FACP, CAMPBELL | |Report Date/Time: -- [id number] | | | |IMPRESSION: | |1. Overall [...] | | | Fingerstick | performed at [facility];[address] | | LAB | | | | [address] Jeffrey;[place] | | | | | | [address] | | | | + + + [...] | | | | performed at [facility];[address] | | | | | | [facility];[place], [place] | | | | | | [address] | | | | + + + [...] | | | | performed at [facility];8 | | LAB | | | | [address] Jeffrey;[place], [place] | | | | | | [address] | | | | + + + [...] W | | | | | | [facility], | | | | | | [place] [address] | | | | + + + [...] | | | | performed at [facility];[address] | | | | | | [address];[place], [place] | | | | | | [address] | | | | + + + [...] | | | Fingerstick | performed at [facility];[address] | | LAB | | | | [address] Jeffrey;[place] | | | | | | [address] | | | | + + + [...] | | | | performed at [facility];[address] | | LAB | | | | [address];[place], [place] | | | | | | [address] | | | | + + + [...] | | | | performed at [facility];[address] | | | | | | [facility];[place], [place] | | | | | | [address] | | | | + + + [...] | | | Patient | performed at [facility];[address] | | LAB | | | | [place]aan Jeffrey;[place] | | | | | | [address] [...] | | | | performed at [facility];[address] | | | | | | [address];[place], [place] | | | | | | [address] | | | | + + + [...] | | Basophils | performed at [facility];[address] | K/uL | LAB | | | | [place] Jeffrey;[place] | | | | | | [address] | | | | + + + [...] | | | | performed at [facility];[address] | mmol/L | LAB | | | | [address] Jeffrey;[place], [place] | | | | | | [address] | | | | + + + [...] | | | | performed at [facility];[address] | | LAB | | | | [place] Jeffrey;[place] | | | | | | [address] | | | | + + + [...] | | | | performed at [facility];[address] | | | | | | [address];[place], [place] | | | | | | [address] | | | | + + + [...]
--- OUTSIDE RECORDS SUMMARY | ~2019-05-20 | XMS | Encounter Summary ---
Demographics + + + | Address | [address] | | | [place] [address] | + + + | Home Phone [...] Team Providers + +------+ + | Care Distribution Systems Superintendent Name | Role | Phone | + +------+ + PCP | Unavailable | + +------+ + Encounter Details +--------+ + + + + | Date | Type | Department | Care Team | Description | +--------+ + + + + | 09/10/ | Hospital | [facility] | Kelvin Haque, | Anemia; | | 2012 - | Encounter | [facility]ICAL [facility]ENTER | [address] | Hypoalbuminemia; | | | | CLINICAL DECISION | [place] [address] | ESRD (end stage | | 09/11/ | | [address] | [phone] | renal disease) on | | 2012 | | [place], [place] | | dialysis (HCC); | | | | [address] | | Acute blood loss | | | | [phone] | | anemia; Back pain, | | [...] 1800 Date of Service: 09/11/121749 Status: Signed Store Protection Specialist: Favio Dawkins MD (Physician) [facility] Service: Hospitalist Discharge Summary [...] W/ EGD; Surgeon: John Singleton MD; Location: [facility] ENDOSCOPY; Se rvice: Gastroenterology; Laterality: N/A; Av fistula placement 05/06/2012 Procedure: AV FISTULA; Surgeon: Oskar Meyer MD; Location: [facility] MAIN OR; Service: Vascul ar; Laterality: Left; Left arm possible right Unlisted procedure arthroscopy shoulder rt , ligaments Knee arthroscopy 07/07/2012 Procedure: KNEE - ARTHROSCOPY; Surgeon: Favio Raza MD; Location: [facility] MAIN OR; [facility]: Orthopedics; Laterality: Right; After 1530 Catheter removal 07/07/2012 Procedure: DIALYSIS CATHETER REMOVAL; Surgeon: Oskar Meyer MD; Location: [facility] BEDSIDE OR OCEDURE; Service: General; Laterality: Right; perm cath Dialysis fistula creation 07/07/2012 Procedure: DIALYSIS CATHETER INSERTION; Surgeon: Oskar Meyer MD; Location: [facility] BEDSIDE PROCEDURE; Service: General; Laterality: Left; temporary dialysis catheter Av fistula repair 07/11/2012 Procedure: AV FISTULA GRAFT REPAIR/REVISION; Surgeon: Oskar Meyer MD; Location: [facility] OR; Service: Vascular; Laterality: Left; Superficialization of brachiobasilic fistula and right IJ perm cath insertion Dialysis fistula creation 07/11/2012 Procedure: DIALYSIS CATHETER INSERTION; Surgeon: Oskar Meyer MD; Location: [facility] MAIN OR; Service: Vascular; Laterality: Left; [...] 20 mg by mouth nightly. ergocalciferol (DRISDOL) 01701 UNITS capsule Take 1 capsule by mouth [...] for: persistant dizziness or light-headedness Follow up: [facility] [address] [facility] [address] in 3 days Juan Cook MD [address] [facility] [address] Call Eduardo Cui MD [address] [facility] [phone] Call Medication List As of 09/11/2012 5:58 PM CONTINUE taking these medications albuterol (2.5 MG/3ML) 0.083% nebulizer solution Commonly known as: PROVENTIL amlodipine 10 MG tablet Commonly known as: NORVASC b complex-vitamin c-folic acid 0.8 MG Tabs Cholecalciferol 2000 UNITS Tabs citalopram 20 MG tablet Commonly known as: CeleXA ergocalciferol 55970 UNITS capsule Commonly known as: DRISDOL Take [...] Care Author Type: Registered Nurse Filed: 09/11/12 7256 Date of Service: 09/11/121635 Status: Signed Store Protection Specialist: Lolis Pfeiffer RN (Registered Nurse) The patient [...] 12/17/122032 Date of Service: 09/11/121199 Status: Signed Store Protection Specialist: Juan Cook MD (Physician) [facility] Service: NEPHROLOGY dialysis Note Enrique Potter 47 y.o. [id number] 325/325-2 male [facility] Day: LOS: 1 day Enrique Potter [...] W/ EGD; Surgeon: John Singleton MD; Location: [facility] END[facility]COPY; Se rvice: Gastroenterology; Laterality: N/A; Av fistula placement 05/06/2012 Procedure: AV FISTULA; Surgeon: Oskar Meyer MD; Location: [facility] MAIN OR; Service: Vascul ar; Laterality: Left; Left arm possible right Unlisted procedure arthroscopy shoulder rt , ligaments Knee arthroscopy 07/07/2012 Procedure: KNEE - ARTHROSCOPY; Surgeon: Favio Raza MD; Location: [facility] MAIN OR; ervice: Orthopedics; Laterality: Right; After 1530 Catheter removal 07/07/2012 Procedure: DIALYSIS CATHETER REMOVAL; Surgeon: Oskar Meyer MD; Location: [facility] BEDSIDE OR OCEDURE; Service: General; Laterality: Right; perm cath Dialysis fistula creation 07/07/2012 Procedure: DIALYSIS CATHETER INSERTION; Surgeon: Oskar Meyer MD; Location: [facility] BEDSIDE PROCEDURE; Service: General; Laterality: Left; temporary dialysis catheter Av fistula repair 07/11/2012 Procedure: AV FISTULA GRAFT REPAIR/REVISION; Surgeon: Oskar Meyer MD; Location: [facility] OR; Service: Vascular; Laterality: Left; Superficialization of brachiobasilic fistula and right IJ perm cath insertion Dialysis fistula creation 07/11/2012 Procedure: DIALYSIS CATHETER INSERTION; Surgeon: Oskar Meyer MD; Location: [facility] MAIN OR; Service: Vascular; Laterality: Left; [...] BIOLOGICAL; 2 STEP KIDSUNEMPLOYED BEFORE WORKED AT [employer] NONE ETOH QUIT 15 YEARS AGODRUGS: quit [...] chloride 10 mL Intravenous Q8H vitamin B hjgfbks-S-iymzc acid 1 tablet Oral Daily with breakfast [...] HAND SPECIAL REQUESTS Value: Testing performed at [facility];[address] [place] [address] CULTURE NO GROWTH AT THIS TIME CULTURE Value: Testing performed at [facility];[address] [place] [address] REPORT STATUS PENDING BLOOD CULTURE, SET 2 Collection Time 09/10/12 7:44 PM Component Value Range Specimen Description BLOOD SPECIAL REQUESTS R HAND SPECIAL REQUESTS Value: Testing performed at [facility];[address] [place] [address] CULTURE NO GROWTH AT THIS TIME CULTURE Value: Testing performed at [facility];[address] [place] [address] REPORT STATUS PENDING POCT GLUCOSE Collection Time [...] Eladio Clinton RN Service: (none) Author Type: Financial Sales Associate Filed: 09/11/12 0851 Date of Service: 09/11/12845 Status: Signed Store Protection Specialist: Eladio Clinton RN (Financial Sales Associate) Case Management: Met with patient to discuss discharge plan. He lives in [place] with his spouse. He gets HD M-W-. He uses a walker or w/c. PCP is at the [facility] in [facility]. His spouse change his wound dressing. Family to transport. onver quique Transaction, Provider Unknown - 09/11/2012 3:38 AM PDT Progress Notes by Lou Mcclellan RN at 09/11/12337 Author: Lou Mcclellan RN Service: (none) Author Type: Registered Nurse Filed: 09/11/12341 Date of Service: 09/11/12337 Status: Signed Store Protection Specialist: Lou Mcclellan RN (Registered Nurse) Dr. Siddiqi [...] 09/10/122033 Date of Service: 09/10/122033 Status: Signed Store Protection Specialist: Carmina Lara RPH (Pharmacist) Clinical Pharmacy [...] HAND | | | Testing performed at [facility];[address] [place] [address] | | | Bl;[place] [address] CULTURE | | | NO GROWTH IN 5 DAYS. | | | Testing performed at [facility];[address] [facility];[place] [address] | | | REPORT STATUS 09/16/2012 FINAL [...] HAND | | | Testing performed at [facility];[address] [place] [address] | | | [facility];[place] [address] CULTURE | | | NO GROWTH IN 5 DAYS. | | | Testing performed at [facility];[address] [place] [address];[place] [address] | | | REPORT STATUS 09/16/2012 FINAL [...]
--- OUTSIDE RECORDS SUMMARY | ~2019-05-20 | XMS | Encounter Summary ---
Demographics + + + | Address | [address] | | | [place] [address] | + + + | Home Phone | | + + + | Preferred Language | Unknown | + + + | Marital Status | Unknown | + + + | Mormonism Affiliation | 1076 | + + + | Race | Unknown | + + + | Ethnic Group | Unknown | + + + Author + + + | Author | [facility] | | | and [place] | + + + | Organization | [facility] | | | [...] Team Providers + +------+ + | Care Wastewater Analyst Name | Role | Phone | + +------+ + | Andry Deng DO | PCP | | + +------+ + Encounter Details +--------+ + + + + | Date | Type | Department | Care Team | Description | +--------+ + + + + | 03/29/ | Orders Only | [facility] | Conversion | | | 2013 | | INFECTIOUS DISEASE | Transaction, | | | | | [address] | Provider Unknown | | | | | [place], [place] | [phone] | | | | | [address] | | | | | | [phone] | | | +--------+ + + + [...] + + | RED CELL | 3.62 | 10 | EXTERNAL | [...]
--- OUTSIDE RECORDS SUMMARY | ~2019-05-20 | XMS | Encounter Summary ---
Demographics + + + | Address | [address] | | | [place] [address] | + + + | Home Phone [...] Team Providers + +------+ + | Care Harvest Crew Supervisor Name | Role | Phone | + +------+ + PCP | Unavailable | + +------+ + Encounter Details +--------+ + + + + | Date | Type | Department | Care Team | Description | +--------+ + + + + | 12/09/ | Hospital | [facility] | Conversion | End stage renal | | 2015 | Encounter | CENTER CV INTRA OP | Transaction, | disease (HCC) | | | | [address] | Provider Unknown | | | | | [place], [place] | [phone] | | | | | [address] | | | | | | [phone] | Uriel Thompson, | | | | | | [address] | | | | | | [place], [place] | | | | | | [address] | | | | | | | [...] 12/09/141947 Date of Service: 12/09/141947 Status: Signed Laser Specialist: Gemini Triplett RN (Registered Nurse) Pt resting [...] 1217 Date of Service: 12/09/141899 Status: Signed Laser Specialist: Juan Timmons MD (Physician) 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 44601, 45576, 14610, 14507-90, 62042-76 | | | | | + + [...] | | | needle and exchanged for 4-Iraqi micropuncture sheath. Initial | | | fistula [...] of the venous | | | lesions. 4-Iraqi micropuncture sheath was exchanged for 6-Iraqi | | | short sheath over a [...] accessed using micropuncture needle and exchanged for 4-Iraqi micropuncture sheath. | | Initial fistula pressure was obtained and fistulogram obtained from the right cubital | | fossa to the right atrium. Given the focal, preocclusive stenosis in mid arm segment | | the cephalic vein and segmental occlusion of the distal cephalic vein and proximal right | | brachiocephalic vein, I decided to perform angioplasty of the venous lesions. 4-Iraqi | | micropuncture sheath was exchanged for 6-Iraqi short sheath over a 0.035, angled | [...] | vein using balloon angioplasty without incidence. 72924, 48411, 75155, 05344-43, | | 07366-01 | | | | | + + [...] balloon angioplasty without | | | incidence. 34011, 70307, 19463, 08468-50, 02790-24 | | | | | + + [...] | | | needle and exchanged for 4-Iraqi micropuncture sheath. Initial | | | fistula [...] of the venous | | | lesions. 4-Iraqi micropuncture sheath was exchanged for 6-Iraqi | | | short sheath over a [...] accessed using micropuncture needle and exchanged for 4-Iraqi micropuncture sheath. | | Initial fistula pressure was obtained and fistulogram obtained from the right cubital | | fossa to the right atrium. Given the focal, preocclusive stenosis in mid arm segment | | the cephalic vein and segmental occlusion of the distal cephalic vein and proximal right | | brachiocephalic vein, I decided to perform angioplasty of the venous lesions. 4-Iraqi | | micropuncture sheath was exchanged for 6-Iraqi short sheath over a 0.035, angled | [...] | vein using balloon angioplasty without incidence. 77237, 40073, 31185, 21181-43, | | 59406-98 | | | | | + + documented in this encounter Visit Diagnoses + + | Diagnosis | + + | End stage renal disease (HCC) End stage renal disease | + + documented in this encounter"
--- OUTSIDE RECORDS SUMMARY | ~2019-05-20 | XMS | Encounter Summary ---
Demographics + + + | Address | [address] | | | [place] [address] | + + + | Home Phone [...] Team Providers + +------+ + | Care Juvenile Justice Specialist Name | Role | Phone | + +------+ + PCP | Unavailable | + +------+ + Encounter Details +--------+ + + + + | Date | Type | Department | Care Team | Description | +--------+ + + + + | 05/06/ | Hospital | [facility] | Oskar Meyer MD | ESRD (end stage | | 2012 | Encounter | [facility] | [address] | renal disease) ([facility]) | | | | [address] | [place], [place] | | | | | [place], [place] | [address] | | | | | [address] | [phone] | | | | | [phone] | | | +--------+ + + + [...] 05/06/121717 Date of Service: 05/06/121716 Status: Signed Spinner Concrete Pipe: Vaishnavi Robertson RN (Registered Nurse) Reviewed discharge [...] 05/06/121653 Date of Service: 05/06/121653 Status: Signed Spinner Concrete Pipe: Kelley Toussaint RPH (Pharmacist) Renal Dosing Monitoring: Enrique Potter 47 y.o. male Pharmacy dosing for renal function per Dr. Meyer SCr 5.76, est. CrCl = 16 ml/min Plan per protocol: Medications dosed appropriately for current renal function. Pharmacy will continue monitoring patient for appropriate dosing per renal function. 05/06/2012 4:53 PM Pharmacist: Kelley Toussaint onver uqique Transaction, Provider Unknown - 05/06/2012 2:01 PM PST Progress Notes by Vaishnavi Mccall RN at 05/06/121400 Author: Vaishnavi Mccall RN Service: (none) Author Type: Registered Nurse Filed: 05/06/121403 Date of Service: 05/06/121400 Status: Signed Spinner Concrete Pipe: Vaishnavi Mccall RN (Registered Nurse) Passed onto [facility] SUPERINTENDENT DRILLING that HD cath was accessed by Dr. Terry. Reminder to SUPERINTENDENT DRILLING that Dr. Terry will need to re-heparinize [...] LAB | | Testing performed at [facility] [place] [address];[place] [address] MRSA PCR | | | NEGATIVE Testing performed at | | | [address];[place] [address] | | + + + + +---------+ [...]
--- OUTSIDE RECORDS SUMMARY | ~2019-05-20 | XMS | Encounter Summary ---
Demographics + + + | Address | [address] | | | [place] [address] | + + + | Home Phone [...] Team Providers + +------+ + | Care Library Consultant Name | Role | Phone | + +------+ + PCP | Unavailable | + +------+ + Encounter Details +--------+ + + + + | Date | Type | Department | Care Team | Description | +--------+ + + + + | 01/30/ | Hospital | [facility] | Conversion | Pain | | 2012 | Encounter | CONVERSION [address]P [address] | Transaction, | | | | | [address] | Provider Unknown | | | | | [place], [place] | | | | | | [address] | (Fax) | | | | | [phone] | | | +--------+ + + + [...]
--- OUTSIDE RECORDS SUMMARY | ~2019-05-20 | XMS | Encounter Summary ---
Demographics + + + | Address | [address] | | | [place] [address] | + + + | Home Phone | | + + + | Preferred Language | Unknown | + + + | Marital Status | Unknown | + + + | Congregation Affiliation | 1076 | + + + | Race | Unknown | + + + | Ethnic Group | Unknown | + + + Author + + + | Author | [facility] | | | and [place] | + + + | Organization | [facility] | | | [...] Team Providers + +------+ + | Care Toolroom Keeper Name | Role | Phone | + +------+ + PCP | Unavailable | + +------+ + Encounter Details +--------+ + + + + | Date | Type | Department | Care Team | Description | +--------+ + + + + | 02/20/ | Emergency | [facility] | Trevor Bernal | Neck pain; C6 | | 2015 | | MEDICAL CENTER | [address] | cervical fracture, | | | | EMERGENCY CENTER | [address] | closed, initial | | | | [address] | [place], [place] | encounter ([facility]); | | | | [place], [place] | [address] | Bilateral hand pain | | | | [address] | [phone] | | | | | [phone] | | | +--------+ + + + [...] | the most part fused with the marketing researcher fracture of the anterior | | | [...] most | | part fused with the marketing researcher fracture of the anterior inferior aspect of [...]
--- OUTSIDE RECORDS SUMMARY | ~2019-05-20 | XMS | Encounter Summary ---
Demographics + + + | Address | [address] | | | [place] [address] | + + + | Home Phone | | + + + | Preferred Language | Unknown | + + + | Marital Status | Unknown | + + + | Restorationism Affiliation | 1076 | + + + | Race | Unknown | + + + | Ethnic Group | Unknown | + + + Author + + + | Author | [facility] | | | and [place] | + + + | Organization | [facility] | | | [...] Team Providers + +------+ + | Care Activity Therapist Name | Role | Phone | + +------+ + | Andry Deng DO | PCP | | + +------+ + Encounter Details +--------+ + + + + | Date | Type | Department | Care Team | Description | +--------+ + + + + | 05/12/ | Orders Only | [facility] | Conversion | | | 2013 | | INFECTIOUS DISEASE | Transaction, | | | | | [address] | Provider Unknown | | | | | [place], [place] | [phone] | | | | | [address] | | | | | | [phone] | | | +--------+ + + + [...]
--- OUTSIDE RECORDS SUMMARY | ~2019-05-20 | XMS | Encounter Summary ---
Demographics + + + | Address | [address] | | | [place] [address] | + + + | Home Phone [...] Providers + +------+ + | Care Counter Professional Name | Role | Phone | + +------+ + PCP | Unavailable | + +------+ + Encounter Details +--------+ + + + + | Date | Type | Department | Care Team | Description | +--------+ + + + + | 04/28/ | Hospital | [facility] | Conversion | Unknown cause of | | 2015 | Encounter | CONVERSION [address] | Transaction, | injury, initial | | | | [address] | Provider Unknown | encounter | | | | [place], [place] | | | | | | [address] | (Fax) | | | | | [phone] | | | +--------+ + + + [...]
--- OUTSIDE RECORDS SUMMARY | ~2019-05-20 | XMS | Encounter Summary ---
Demographics + + + | Address | [address] | | | [place] [address] | + + + | Home Phone [...] Providers + +------+ + | Care Benefits Manager Name | Role | Phone | + +------+ + PCP | Unavailable | + +------+ + Encounter Details +--------+ + + + + | Date | Type | Department | Care Team | Description | +--------+ + + + + | 02/03/ | Hospital | [facility] | Conversion | ESRD (end stage | | 2014 | Encounter | CENTER CV INTRA OP | Transaction, | renal disease) ([facility]) | | | | [address] | Provider Unknown | | | | | [place], [place] | [phone] | | | | | [address] | | | | | | [phone] | Oskar Meyer, [address] | | | | | [address] | | | | | | [place], [place] | | | | | | [address] | | | | | | [phone] | | | | | | | [...] | | | SURGEON Oskar Meyer MD PARAPROFESSIONAL EDUCATION ASSISTANT None ANESTHESIA Moderate | | | sedation, [...]
--- OUTSIDE RECORDS SUMMARY | ~2019-05-20 | XMS | Encounter Summary ---
Demographics + + + | Address | [address] | | | [place] [address] | + + + | Home Phone | | + + + | Preferred Language | Unknown | + + + | Marital Status | Unknown | + + + | Adventism Affiliation [...] Team Providers + +------+ + | Care Industrial Trainer Name | Role | Phone | + +------+ + | Andry Deng DO | PCP | | + +------+ + Encounter Details +--------+ + + + + | Date | Type | Department | Care Team | Description | +--------+ + + + + | 07/07/ | Orders Only | [facility] | Oskar Meyer MD | | | 2012 | | [facility] | [address] | | | | | OPER[address] | [place], [place] | | | | | [address] | [address] | | | | | [place], [place] | [phone] | | | | | [address] | | | | | | [phone] | | | +--------+ + + + [...] | Testing performed at | | | [facility] [facility];[place] [address] CULTURE | | | <10,000 CFU/ML MIXED GRAM POSITIVE AND GRAM NEGATIVE | | | POWER NO SUSCEPTIBILITY TO FOLLOW | | | Testing performed at [facility], [address] [facility], | | | [place] [address] REPORT STATUS | | | 07/12/2012 FINAL [...] | Testing performed at | | | [facility] [facility];[place] [address] GRAM STAIN | | | 2+ WBC'S SEEN | | | NO ORGANISMS SEEN | | | Testing performed at [facility];[address] [facility];[place] [address] | | | CULTURE 1+ STAPHYLOCOCCUS | | | AUREUSAbnormal | | | Testing performed at [facility], [address] [place], [place] | | | [address] REPORT STATUS 07/11/2012 | | | FINAL [...] EXTERNAL LAB | | Testing performed at [facility] [address] COLOR | | | PALE YELLOW Testing performed | | | at [facility] [address] [facility];[place] [address] APPEARANCE | | | CLOUDY Testing performed at [facility];[address] [place] [address] | | | Bl;[place] [address] RBC'S | | | [address] Testing performed at [facility];[address] [place] [address];[place], [place] | | | [address] TOTAL NUCLEATED CELLS [address] | | | Testing performed at [facility];[address] [place] [address];[place] [address] NEUTROPHILS | | | 100 Testing performed | | | at [facility];[address] [place] [address];[place] [address] CELLS COUNTED | | | 100 Testing performed at [facility];[address] | [address];[place] [address] | | + + + + +---------+ [...] TIP Testing | | | performed at [facility];[address] [facility];[place] [address] CULTURE | | | GREATER THAN FIFTEEN COLONY FORMING | | | UNITS OF STAPHYLOCOCCUS AUREUSAbnormal | | | Testing performed at [facility], [address] [facility] | | | [place] [address] REPORT STATUS | | | 07/10/2012 FINAL [...] | Testing performed | | | at [facility];[address] [place] [address] GRAM STAIN | | | WBC'S SEEN NO ORGANISMS SEEN ON CYTOSPIN SLIDE | | | PHONED TO DR TRAN | | | AT 0045 BY LJ READBACK | | | Testing performed at [facility];[address] [place] [address] | | | CULTURE NO GROWTH 4 DAYS | | | Testing performed at | | | [facility], [address] [place] [address] REPORT STATUS | | | 07/11/2012 FINAL [...] CONSULT Testing performed at | | | [facility];[address] [facility];[place] [address] | | + + + + +---------+ [...] | Testing performed | | | at [facility];[address] [place] [address];[place] [address] GRAM STAIN | | | WBC'S SEEN GRAM NEGATIVE COCCI ON CYTO SPIN SLIDE | | | PHONED TO | | | CHELSEA AT 0045 BY LJ READBACK | | | REVIEW OF SMEAR BY MICROBIOLOGY SHOWS THE FOLLOWING: NO | | | ORGANISMS SEEN | | | Testing performed at [facility], [facility] [address] [place], [place] | | | [address] CULTURE 1+ | | | STAPHYLOCOCCUS AUREUS SUSCEPTIBILITY TO FOLLOWAbnormal | | | Testing performed at [facility], [facility] | | | [place] [address] REPORT STATUS | | | 07/10/2012 FINAL [...]
--- OUTSIDE RECORDS SUMMARY | ~2019-05-20 | XMS | Encounter Summary ---
Demographics + + + | Address | [address] | | | [place] [address] | + + + | Home Phone [...] + + + | Author | [facility] | | | and [place] | + + + | Organization | [facility] | | | [...] Team Providers + +------+ + | Care Youth Court Judge Name | Role | Phone | + +------+ + PCP | Unavailable | + +------+ + Encounter Details +--------+ + + + + | Date | Type | Department | Care Team | Description | +--------+ + + + + | 10/05/ | Emergency | [facility] | Inocencio Burden | ESRD on hemodialysis | | 2018 | | MEDICAL CENTER | [address] | ([facility]); Cellulitis | | | | EMERGENCY CENTER | [address] | of right upper | | | | [address] | [place], [place] | extremity | | | | [place], [place] | [address] | | | | | [address] | [phone] | | | | | [phone] | | | +--------+ + + + [...] | | | | | | ACUTE RI Testing | | | | | | performed at [facility];[address] | | | | | | [address] [facility];[place], [place] | | | | | | [address] | | | | + + [...]
--- OUTSIDE RECORDS SUMMARY | ~2019-05-20 | XMS | Encounter Summary ---
Demographics + + + | Address | [address] | | | [place] [address] | + + + | Home Phone [...] Providers + +------+ + | Care Manager General Name | Role | Phone | + +------+ + PCP | Unavailable | + +------+ + Encounter Details +--------+ + + + + | Date | Type | Department | Care Team | Description | +--------+ + + + + | 10/27/ | Hospital | [facility] | Douglas Stevenson MD | End stage renal | | 2014 - | Encounter | [facility] | [address] | disease (HCC); | | | | CARE [address]LO[address] | [place] [address] | Elevated troponin; | | | | [address] | [phone] | Acute bronchitis; | | 2013 | | [place], [place] | | Anemia of chronic | | | | [address] | | kidney failure; | | | | [phone] | | Chronic obstructive | | | | | | asthma with | | | | | | exacerbation ([facility]); | | | | | | Diabetes mellitus | | | | | | with ESRD (end-stage | | | | | | renal disease) | | | | | | ([facility]); ESRD (end | | | | | | stage renal disease) | | | | | | on dialysis ([facility]); | | | | | | [...] 10/28/131920 Date of Service: 10/28/131051 Status: Signed Last Scourer: Sowmya Shaikh MD (Physician) Related Notes: Original Note by Sowmya Shaikh MD (Physician) filed at 10/28/13 1058 Patient ID: Enrique Potter [id number] 48 y.o. 1965 Admit date: 10/27/2013 Discharge [...] of 0.13, hence he was transferred to [facility] with asthma exacerbation and abnormal troponin. [...] syndrome. The patient's repeated troponin here in [facility] is 0.00. I spent more than 35 minutes on discharge. Discharged Condition: stable Significant Diagnostic Studies: Lab Results Component Value Date WBC 7.7 10/28/2013 HGB 13.4 10/28/2013 HCT 40.3 10/28/2013 MCV 97.2 10/28/2013 PLT 209 10/28/2013 GLUCOSE Date Value Range Status 10/28/2013 189* 65 - 99 mg/dL Final Testing performed at [address] [address] BUN Date Value Range Status 10/28/2013 55* 8 - 25 mg/dL Final Testing performed at [address] [address] CREATININE Date Value Range Status 10/28/2013 8.10* 0.70 - 1.30 mg/dL Final Testing performed at [address] [address] BUN/CREAT Date Value Range Status 10/28/2013 7 Final Testing performed at [address] [address] TOTAL PROTEIN Date Value Range Status 10/27/2013 7.8 6.3 - 8.2 g/dL Final Testing performed at [facility];[address] [place] [address];[place] [address] GLOBULIN Date Value Range Status 10/27/2013 4.1 1.3 - 4.9 g/dL Final Testing performed at [facility];[address] [place] [address];[place] [address] TBIL Date Value Range Status 10/27/2013 0.7 0.1 - 1.5 mg/dL Final Testing performed at [facility];[address] [place] [address];[place] [address] ALT Date Value Range Status 10/27/2013 36 10 - 65 U/L Final Testing performed at [facility];[address] [place] [address] AST Date Value Range Status 10/27/2013 23 10 - 45 U/L Final Testing performed at [facility];[address] [place] [address];[place] [address] SODIUM Date Value Range Status 10/28/2013 130* 135 - 143 mmol/L Final Testing performed at [address] [address] POTASSIUM Date Value Range Status 10/28/2013 4.1 3.5 - 4.9 mmol/L Final Testing performed at [address] [address] CHLORIDE Date Value Range Status 10/28/2013 87* 99 - 109 mmol/L Final Testing performed at [address] [address] CO2 Date Value Range Status 10/28/2013 26 23 - 32 mmol/L Final Testing performed at [address] [address] ANION GAP AGAP Date Value Range Status 10/28/2013 21* 5 - 20 mmol/L Final Testing performed at [address] [address] Xr Chest Ap Portable 10/27/2013 ENRIQUE POTTER [...] Refills: 0 Commonly known as: DORYX ergocalciferol [address]496 UNITS capsule Refills: 0 Commonly known as: [...] are the 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 You may get these medications from any pharmacy. albuterol 1.25 MG/3ML nebulizer solution albuterol 108 (90 BASE) MCG/ACT inhaler fluticasone-salmeterol 250-50 MCG/DOSE montelukast 10 MG tablet predniSONE 20 MG tablet Activity: activity as tolerated Diet: renal diet Wound Care: not applicable There are no Patient Instructions on file for this visit. [facility] [address] [place] [address] In 1 week Signed: SOWMYA SHAIKH 10/28/2013 [...] Author: VANDANA Olivia Service: (none) Author Type: Library Clerk Filed: 10/28/13 1613 Date of Service: 10/28/13 161 Status: Signed Last Scourer: VANDANA Olivia (Library Clerk) Gas voucher provided to Pt's Spouse for transport back to [facility]. Sean Willis MD - 10/28/2013 8:09 AM PDTFormatting of this note might be different from the o rosina. Progress Notes by Sean Reid MD at 10/28/13 0809 Author: Sean Reid MD Service: Nephrology Author Type: Physician Filed: 10/28/13 1431 Date of Service: 10/28/13 0809 Status: Signed Last Scourer: Sean Reid MD (Physician) [facility] Service: NEPHROLOGY Progress Note Enrique Potter 48 y.o. [id number] male [facility] Hospital Day: LOS: 1 day SUBJECTIVE [...] why he went to a hospital in [facility] where he was found to have a low positive troponin of 0.13 and also had acute shortness of breath and wheezing and that's why he was transferred to [facility] . Here in our ER, the patient [...] Saw h im. Patient gets hemodialysis in [facility] hemodialysis unit Saturday und er Dr. Timmons [...] AV FISTULA; Surgeon: Oskar Meyer MD; Location: [facility] OR; Service: Vascul ar; Laterality: Left; Left arm possible right Unlisted procedure arthroscopy shoulder rt , ligaments Knee arthroscopy 07/07/2012 Procedure: KNEE - ARTHROSCOPY; Surgeon: Favio Raza MD; Location: [facility] MAIN OR; ervice: Orthopedics; Laterality: Right; After 1530 Catheter removal 07/07/2012 Procedure: DIALYSIS CATHETER REMOVAL; Surgeon: Oskar Meyer MD; Location: [facility] BEDSIDE [place] OCEDURE; Service: General; Laterality: Right; perm cath Dialysis fistula creation 07/07/2012 Procedure: DIALYSIS CATHETER INSERTION; Surgeon: Oskar Meyer MD; Location: [facility] BEDSIDE PROCEDURE; Service: General; Laterality: Left; temporary dialysis catheter Av fistula repair 07/11/2012 Procedure: AV FISTULA GRAFT REPAIR/REVISION; Surgeon: Oskar Meyer MD; Location: [facility] OR; Service: Vascular; Laterality: Left; Superficialization of brachiobasilic fistula and right IJ perm cath insertion Dialysis fistula creation 07/11/2012 Procedure: DIALYSIS CATHETER INSERTION; Surgeon: Oskar Meyer MD; Location: [facility] OR; Service: Vascular; Laterality: Left; [...] KIDS. CURRENTLY UNEMPLOYED, ULISES Wise WORKED AT [employer] IN [place]. Quit METHAMPHETAMINES PER PATIENT after t he [...] bicarbonate 1,300 mg Oral BID vitamin B eroagzv-Y-vjznz acid 1 tablet Oral Daily Continuous Infusions [...] Results Component Value Date PTHINTACT 255* 04/02/2012 [id number] <12* 04/02/2012 Lab Results Component Value Date [...] to diabetes and hypertensive nephrosclerosis Hemodialysis at [facility] hemodialysis unit under Dr. Timmons Saturday Using [...] 10/27/131714 Date of Service: 10/27/131714 Status: Signed Last Scourer: Chela Varela RPH (Pharmacist) Clinical Pharmacy Note - Renal Dose Adjustment Enrique Potter 48 y.o. male Ht Readings from Last 1 Encounters: 10/27/13 1.702 m (5' 7.01") Wt Readings from Last 1 Encounters: 10/27/13 72 kg (158 lb 11.7 oz) CREATININE Date Value Range Status 10/27/2013 7.41* 0.70 - 1.30 mg/dL Final Testing performed at [facility];[address] [place] [address];[place] [address] ESRD on HD Pharmacy to renally adjust [...] Case Management by VANDANA Wu at 10/27/13 1623 Author: VANDANA Wu Service: (none) Author Type: Library Clerk Filed: 10/27/131625 Date of Service: 10/27/131623 Status: Signed Last Scourer: VANDANA Wu (Library Clerk) 10/27/131620 Discharge Planning Evaluation Admitting Diagnosis Dyspnea Readmission Yes-within 14 days Living Arrangements Spouse/significant other;Family members Support Systems Spouse/significant other;Family members;Other (Comment) ([facility]) Type of Residence Private residence House [...] any diffic ulty walking. Patient's PCP is: [facility] Patient's insurance: Medicare / Medicaid Coverage concerns: None reported Medication coverage/concerns: None reported Community resources utilized / needed: Pt goes to Dialysis in [place] and gets there by [employer] transportation Assistance in transportation: [employer] / Family Identification of any specific education / training: TBD Barriers to Discharge / Alternative housing needed: Anticipated DCP: Home. Pt thought the plan was to stay overnight, get dialysis in the am, and then dc home. Pt's plans to arrive and stay the night at [facility]. Princess Michelle docume nted in this encounter [...] | | | | | [place] [address] | | | | + + + + + + | RED CELL | 4.14 (L)Comment: Testing | 4.20 - 5.70 | EXTERNAL | | | COUNT | performed at [facility], [address] | [address] | LAB | | | | [address], | | | | | | [place] [address] | | | | + + + + + + | Hgb | 13.4Comment: Testing | 13.2 - 17.0 | EXTERNAL | | | | performed at [facility], [address] | g/dL | LAB | | | | [address], | | | | | | [place] [address] | | | | + + + + + + | Hematocrit, | 40.3Comment: Testing | 39.0 - 50.0 % | EXTERNAL | | | POC | performed at [facility], [address] | | LAB | | | | [address], | | | | | | [place] [address] | | | | + + + + + + | MCV | 97.2Comment: Testing | 80.0 - 100.0 fl | EXTERNAL | | | | performed at [facility], [address] | | LAB | | | | [address], | | | | | | [place] [address] | | | | + + + + + + | MCH | 32.4Comment: Testing | 27.0 - 34.0 pg | EXTERNAL | | | | performed at [facility], [address] | | LAB | | | | [address], | | | | | | [place] [address] | | | | + + + + + + | MCHC | 33.3Comment: Testing | 32.0 - 35.5 | EXTERNAL | | | | performed at [facility], [address] | g/dL | LAB | | | | [address], | | | | | | [place] [address] | | | | + + + + + + | RDW-CV | 49.0Comment: Testing | 37 - 53 fl | EXTERNAL | | | | performed at [facility], [address] | | LAB | | | | [address], | | | | | | [place] [address] | | | | + + + + + + | Platelet | 209Comment: Testing | 150 - 400 K/uL | EXTERNAL | | | Count | performed at [facility], [address] | | LAB | | | Plasma | [address], | | | | | | [place] [address] | | | | + + + + + + | MPV | 7.7Comment: Testing | fl | EXTERNAL | | | | performed at [facility], [address] | | LAB | | | | [address], | | | | | | [place] [address] | | | | + + + [...] | | | | | [place] [address] | | | | + + + + + + | % Segmented | 88.3Comment: Testing | % | EXTERNAL | | | | performed at [facility], [address] | | LAB | | | Neutrophils | [address], | | | | | | [place], [place] [address] | | | | + + + + + + | % | 9.7Comment: Testing | % | EXTERNAL | | | Lymphocytes | performed at [facility], [address] | | LAB | | | | [address], | | | | | | [place], [place] [address] | | | | + + + + + + | % Monocytes | 1.8Comment: Testing | % | EXTERNAL | | | | performed at [facility], [address] | | LAB | | | | [address], | | | | | | [place] [address] | | | | + + + + + + | % | 0.1Comment: Testing | % | EXTERNAL | | | Eosinophils | performed at [facility], [address] | | LAB | | | | [address], | | | | | | [place] [address] | | | | + + + + + + | % Basophils | 0.1Comment: Testing | % | EXTERNAL | | | | performed at [facility], [address] | | LAB | | | | [address], | | | | | | [place] [address] | | | | + + + + + + | Absolute | 6.8Comment: Testing | 1.9 - 7.4 K/uL | EXTERNAL | | | Segmented | performed at [facility], [address] | | LAB | | | Neutrophils | [address], | | | | | | [place] [address] | | | | + + + + + + | Absolute | 0.7 (L)Comment: Testing | 1.0 - 3.9 K/uL | EXTERNAL | | | Lymphocytes | performed at [facility], [address] | | LAB | | | | [address], | | | | | | [place] [address] | | | | + + + + + + | Absolute | 0.1Comment: Testing | 0 - 0.8 K/uL | EXTERNAL | | | Monocytes | performed at [facility], [address] | | LAB | | | | [address], | | | | | | [place] [address] | | | | + + + + + + | Absolute | 0.0Comment: Testing | 0 - 0.5 K/uL | EXTERNAL | | | Eosinophils | performed at [facility], [address] | | LAB | | | | [address], | | | | | | [place] [address] | | | | + + + + + + | Absolute | 0.0Comment: Testing | 0 - 0.1 K/uL | EXTERNAL | | | Basophils | performed at [facility], [address] | | LAB | | | | [address], | | | | | | [place] [address] | | | | + + + [...] EXTERNAL | | | | performed at [facility], [address] | | LAB | | | | [address], | | | | | | [place] [address] | | | | + + [...] EXTERNAL | | | | performed at [facility], [address] | | LAB | | | | [address], | | | | | | [place] [address] | | | | + + + [...] | | | | | [place] [address] | | | | + + + + + + | K | 4.1Comment: Testing | 3.5 - 4.9 | EXTERNAL | | | | performed at [facility], [address] | mmol/L | LAB | | | | [address], | | | | | | [place] [address] | | | | + + + + + + | Cl | 87 (L)Comment: Testing | 99 - 109 mmol/L | EXTERNAL | | | | performed at [facility], [address] | | LAB | | | | [address], | | | | | | [place] [address] | | | | + + + + + + | CO2 | 26Comment: Testing | 23 - 32 mmol/L | EXTERNAL | | | | performed at [facility], [address] | | LAB | | | | [address], | | | | | | [place] [address] | | | | + + + + + + | Anion Gap | 21 (H)Comment: Testing | 5 - 20 mmol/L | EXTERNAL | | | | performed at [facility], [address] | | LAB | | | | [address], | | | | | | [place] [address] | | | | + + + + + + | Glucose, | 189 (H)Comment: Testing | 65 - 99 mg/dL | EXTERNAL | | | Fasting | performed at [facility], [address] | | LAB | | | | [address], | | | | | | [place] [address] | | | | + + + + + + | BUN | 55 (H)Comment: Testing | 8 - 25 mg/dL | EXTERNAL | | | | performed at [facility], [address] | | LAB | | | | [address], | | | | | | [place] [address] | | | | + + + + + + | Creatinine | 8.10 (H)Comment: Testing | 0.70 - 1.30 | EXTERNAL | | | | performed at [facility], [address] | mg/dL | LAB | | | | [address], | | | | | | [place] [address] | | | | + + + + + + | BUN/Creatin | 7Comment: Testing | | EXTERNAL | | | ine Ratio | performed at [facility], [address] | | LAB | | | | [address], | | | | | | [place] [address] | | | | + + + + + + | Calcium | 9.7Comment: Testing | 8.5 - 10.2 | EXTERNAL | | | | performed at [facility], [address] | mg/dL | LAB | | | | [address], | | | | | | [place] [address] | | | | + + + [...] | | | | | [place] [address] | | | | + + + [...] [place] | | | | | | [address] | | | | + + + + + -+ | RED CELL | 4.23Comment: Testing | 4.20 - 5.70 | EXTERNAL | | | COUNT | performed at [facility];[address] | M/uL | LAB | | | | [address];[place] | | | | | | [address] | | | | + + + + + -+ | Hgb | 13.8Comment: Testing | 13.2 - 17.0 | EXTERNAL | | | | performed at [facility];[address] | g/dL | LAB | | | | [address];[place] | | | | | | [address] | | | | + + + + + -+ | Hematocrit, | 41.1Comment: Testing | 39.0 - 50.0 % | EXTERNAL | | | POC | performed at [facility];[address] | | LAB | | | | [address];[place] | | | | | | [address] | | | | + + + + + -+ | MCV | 97.2Comment: Testing | 80.0 - 100.0 fl | EXTERNAL | | | | performed at [facility];[address] | | LAB | | | | [address];[place] | | | | | | [address] | | | | + + + + + -+ | MCH | 32.5Comment: Testing | 27.0 - 34.0 pg | EXTERNAL | | | | performed at [facility];[address] | | LAB | | | | [address];[place] | | | | | | [address] | | | | + + + + + -+ | MCHC | 33.5Comment: Testing | 32.0 - 35.5 | EXTERNAL | | | | performed at [facility];[address] | g/dL | LAB | | | | [address];[place] | | | | | | [address] | | | | + + + + + -+ | RDW-CV | 49.4Comment: Testing | 37 - 53 fl | EXTERNAL | | | | performed at [facility];[address] | | LAB | | | | [address];[place] | | | | | | [address] | | | | + + + + + -+ | Platelet | 235Comment: Testing | 150 - 400 K/uL | EXTERNAL | | | Count | performed at [facility];[address] | | LAB | | | Plasma | [address];[place] | | | | | | [address] | | | | + + + + + -+ | MPV | 7.3Comment: Testing | fl | EXTERNAL | | | | performed at [facility];[address] | | LAB | | | | [address];[place] | | | | | | [address] | | | | + + + + + -+ | Differentia | AUTOMATEDComment: | | EXTERNAL | | | l Type | Testing performed at | | LAB | | | | [facility];[address];[place] [address] | | | | + + + + + -+ | % Segmented | 90.4Comment: Testing | % | EXTERNAL | | | | performed at [facility];[address] | | LAB | | | Neutrophils | [address];[place] | | | | | | [address] | | | | + + + + + -+ | % | 6.9Comment: Testing | % | EXTERNAL | | | Lymphocytes | performed at [facility];[address] | | LAB | | | | [address];[place] | | | | | | [address] | | | | + + + + + -+ | % Monocytes | 1.1Comment: Testing | % | EXTERNAL | | | | performed at [facility];[address] | | LAB | | | | [address];[place] | | | | | | [address] | | | | + + + + + -+ | % | 1.5Comment: Testing | % | EXTERNAL | | | Eosinophils | performed at [facility];[address] | | LAB | | | | [address];[place] | | | | | | [address] | | | | + + + + + -+ | % Basophils | 0.1Comment: Testing | % | EXTERNAL | | | | performed at [facility];[address] | | LAB | | | | [address];[place] | | | | | | [address] | | | | + + + + + -+ | Absolute | 7.7 (H)Comment: Testing | 1.9 - 7.4 K/uL | EXTERNAL | | | Segmented | performed at [facility];[address] | | LAB | | | Neutrophils | [address];[place] | | | | | | [address] | | | | + + + + + -+ | Absolute | 0.6 (L)Comment: Testing | 1.0 - 3.9 K/uL | EXTERNAL | | | Lymphocytes | performed at [facility];[address] | | LAB | | | | [address];[place] | | | | | | [address] | | | | + + + + + -+ | Absolute | 0.1Comment: Testing | 0 - 0.8 K/uL | EXTERNAL | | | Monocytes | performed at [facility];[address] | | LAB | | | | [address];[place] | | | | | | [address] | | | | + + + + + -+ | Absolute | 0.1Comment: Testing | 0 - 0.5 K/uL | EXTERNAL | | | Eosinophils | performed at [facility];[address] | | LAB | | | | [address];[place] | | | | | | [address] | | | | + + + + + -+ | Absolute | 0.0Comment: Testing | 0 - 0.1 K/uL | EXTERNAL | | | Basophils | performed at [facility];[address] | | LAB | | | | [address];[place] | | | | | | [address] | | | | + + + + + -+ | Platelet | ADEQUATEComment: Testing | | EXTERNAL | | | Estimate | performed at [facility];[address] | | LAB | | | | [address];[place] | | | | | | [address] | | | | + + + + + -+ | Differentia | SLIDE SCANNED, AGREES | | EXTERNAL | | | l Comments | WITH AUTOMATED | | LAB | | | | RESULTS.Comment: Testing | | | | | | performed at [facility];[address] | | | | | | [address];[place] | | | | | | [address] | | | | + + + + + -+ | RBC | RBC AND PLT MORPHOLOGY | | EXTERNAL | | | Morphology | APPEAR NORMALComment: | | LAB | | | | Testing performed at | | | | | | [facility];[address];[place] [address] | | | | + + + + + -+ | Na | 134 (L)Comment: Testing | 135 - 143 | EXTERNAL | | | | performed at [facility];[address] | mmol/L | LAB | | | | [address];[place] | | | | | | [address] | | | | + + + + + -+ | K | 3.8Comment: Testing | 3.5 - 4.9 | EXTERNAL | | | | performed at [facility];[address] | mmol/L | LAB | | | | [address];[place] | | | | | | [address] | | | | + + + + + -+ | Cl | 91 (L)Comment: Testing | 99 - 109 mmol/L | EXTERNAL | | | | performed at [facility];[address] | | LAB | | | | [address];[place] | | | | | | [address] | | | | + + + + + -+ | CO2 | 30Comment: Testing | 23 - 32 mmol/L | EXTERNAL | | | | performed at [facility];[address] | | LAB | | | | [address];[place] | | | | | | [address] | | | | + + + + + -+ | Anion Gap | 17Comment: Testing | 5 - 20 mmol/L | EXTERNAL | | | | performed at [facility];[address] | | LAB | | | | [address];[place] | | | | | | [address] | | | | + + + + + -+ | Glucose, | 146 (H)Comment: Testing | 65 - 99 mg/dL | EXTERNAL | | | Fasting | performed at [facility];[address] | | LAB | | | | [address];[place] | | | | | | [address] | | | | + + + + + -+ | BUN | 33 (H)Comment: Testing | 8 - 25 mg/dL | EXTERNAL | | | | performed at [facility];[address] | | LAB | | | | [address];[place] | | | | | | [address] | | | | + + + + + -+ | Creatinine | 7.41 (H)Comment: Testing | 0.70 - 1.30 | EXTERNAL | | | | performed at [facility];[address] | mg/dL | LAB | | | | [address];[place] | | | | | | [address] | | | | + + + + + -+ | BUN/Creatin | 4Comment: Testing | | EXTERNAL | | | ine Ratio | performed at [facility];[address] | | LAB | | | | [address];[place] | | | | | | [address] | | | | + + + + + -+ | Calcium | 8.9Comment: Testing | 8.5 - 10.2 | EXTERNAL | | | | performed at [facility];[address] | mg/dL | LAB | | | | [address];[place] | | | | | | [address] | | | | + + + + + -+ | Protein, | 7.8Comment: Testing | 6.3 - 8.2 g/dL | EXTERNAL | | | Total | performed at [facility];[address] | | LAB | | | | [address];[place] | | | | | | [address] | | | | + + + + + -+ | Albumin | 3.7Comment: Testing | 3.6 - 5.0 g/dL | EXTERNAL | | | | performed at [facility];[address] | | LAB | | | | [address];[place] | | | | | | [address] | | | | + + + + + -+ | Globulin | 4.1Comment: Testing | 1.3 - 4.9 g/dL | EXTERNAL | | | | performed at [facility];[address] | | LAB | | | | [address];[place] | | | | | | [address] | | | | + + + + + -+ | A/G Ratio | 0.9 (L)Comment: Testing | 1.0 - 2.4 | EXTERNAL | | | | performed at [facility];[address] | | LAB | | | | [address];[place] | | | | | | [address] | | | | + + + + + -+ | Bilirubin | 0.7Comment: Testing | 0.1 - 1.5 mg/dL | EXTERNAL | | | Total | performed at [facility];[address] | | LAB | | | | [address];[place] | | | | | | [address] | | | | + + + + + -+ | ALP, | 96Comment: Testing | 35 - 115 U/L | EXTERNAL | | | External | performed at [facility];[address] | | LAB | | | | [address];[place] | | | | | | [address] | | | | + + + + + -+ | AST | 23Comment: Testing | 10 - 45 U/L | EXTERNAL | | | | performed at [facility];[address] | | LAB | | | | [address];[place] | | | | | | [id number] | | | | + + + + + -+ | ALT | 36Comment: Testing | 10 - 65 U/L | EXTERNAL | | | | performed at [facility];[address] | | LAB | | | | [address];[place] | | | | | | [address] | | | | + + + [...] [facility];[address] | | | | | [address];[place] [address] | | | | + + + + + -+ | CK, Total | 105Comment: Testing | 55 - 400 U/L | EXTERNAL | | | | performed at [facility];[address] | | LAB | | | | [address];[place] | | | | | | [address] | | | | + + + [...] [place];[address] | | | | | | [address];[place] | | | | | | [address] | | | | + + + + + -+ | aPTT, | 24Comment: Testing | 23 - 32 seconds | EXTERNAL | | | Patient | performed at [facility];[address] | | LAB | | | | [address];[place] | | | | | | [address] | | | | + + + + + -+ | CK-MB | 4.2 (H)Comment: Testing | 0.5 - 3.6 ng/mL | EXTERNAL | | | | performed at [facility];[address] | | LAB | | | | [address];[place] | | | | | | [address] | | | | + + + [...] | LAB | | | | [address];[place] | | | | | | [address] | | | | + + + [...] Diabetes mellitus with ESRD (end-stage renal disease) ([facility]) 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
--- OUTSIDE RECORDS SUMMARY | ~2019-05-20 | XMS | Encounter Summary ---
Demographics + + + | Address | [address] | | | [place] [address] | + + + | Home Phone [...] Team Providers + +------+ + | Care Brands Editor Name | Role | Phone | + +------+ + | Andry Deng DO | PCP | | + +------+ + Encounter Details +--------+ + + + + | Date | Type | Department | Care Team | Description | +--------+ + + + + | 05/17/ | Orders Only | [facility] | Conversion | | | 2013 | | INFECTIOUS DISEASE | Transaction, | | | | | [address] | Provider Unknown | | | | | [place], [place] | [phone] | | | | | [address] | | | | | | [phone] | | | +--------+ + + + [...]
--- OUTSIDE RECORDS SUMMARY | ~2019-05-20 | XMS | Encounter Summary ---
Demographics + + + | Address | [address] | | | [place] [address] | + + + | Home Phone [...] Team Providers + +------+ + | Care Editor Index Name | Role | Phone | + +------+ + | Andry Deng DO | PCP | | + +------+ + Encounter Details +--------+ + + + + | Date | Type | Department | Care Team | Description | +--------+ + + + + | 05/26/ | Orders Only | [facility] | Conversion | | | 2013 | | INFECTIOUS DISEASE | Transaction, | | | | | [address] | Provider Unknown | | | | | [place], [place] | [phone] | | | | | [address] | | | | | | [phone] | | | +--------+ + + + [...]
--- OUTSIDE RECORDS SUMMARY | ~2019-05-20 | XMS | Encounter Summary ---
Demographics + + + | Address | [address] | | | [place] [address] | + + + | Home Phone [...] Team Providers + +------+ + | Care Placer Miner Name | Role | Phone | + +------+ + | Andry Deng DO | PCP | | + +------+ + Encounter Details +--------+ + + + + | Date | Type | Department | Care Team | Description | +--------+ + + + + | 04/05/ | Orders Only | [facility] | Conversion | | | 2013 | | INFECTIOUS DISEASE | Transaction, | | | | | [address] | Provider Unknown | | | | | [place], [place] | [phone] | | | | | [address] | | | | | | [phone] | | | +--------+ + + + [...]
--- OUTSIDE RECORDS SUMMARY | ~2019-05-20 | XMS | Encounter Summary ---
Demographics + + + | Address | [address] | | | [place] [address] | + + + | Home Phone | | + + + | Preferred Language | Unknown | + + + | Marital Status | Unknown | + + + | Jain Affiliation | [id number] | + + + [...] Team Providers + +------+ + | Care Rapid Outsole Stitcher Name | Role | Phone | + +------+ + PCP | Unavailable | + +------+ + Encounter Details +--------+ + + + + | Date | Type | Department | Care Team | Description | +--------+ + + + + | 01/08/ | Hospital | [facility] | Conversion | Mesenteric arterial | | 2013 | Encounter | [facility] | Transaction, | bleeding | | | | [address] | Provider Unknown | | | | | [place], [place] | [phone] | | | | | [address] | | | | | | [phone] | Juan Timmons MD | | | | | | [address] | | | | | | [place] | | | | | | [address] | | | | | | | [...] (none) Author Type: Registered Nurse Filed: 01/08/13 1776 Date of Service: 01/08/131545 Status: Signed Habitat Biologist: Gemini Triplett RN (Registered Nurse) Pt ready [...] conscious sedation and | | | independent chcf supervision performed throughout the | | | [...] needle and | | | exchanged for 4-Canadian micropuncture sheath. Initial fistula | | | pressure was obtained and fistulogram obtained from the left cubital | | | fossa to the right atrium. 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 | | | 4-Canadian micropuncture sheath was exchanged for 6-Canadian short | | | sheath over a 0.035, angled Glidewire. Using combination of the | | | 4-Canadian angled glide catheter and 0.035 angled Glidewire multiple | | | attempts to traverse the occluded distal left basilic vein was | | | unsuccessful. Subsequently, 4-Canadian angled glide catheter was | | | [...] adequate conscious | | sedation and independent chcf supervision performed throughout the procedure. | | [...] micropuncture needle and | | exchanged for 4-Canadian micropuncture sheath. Initial fistula pressure was obtained and | | fistulogram obtained from the left cubital fossa to the right atrium. Given the | | multiple tandem stenosis in proximal left basilic vein and occlusion of at the level of | | left axilla, I decided to perform angioplasty of the venous lesions. 4-Canadian | | micropuncture sheath was exchanged for 6-Canadian short sheath over a 0.035, angled | | Glidewire. Using combination of the 4-Canadian angled glide catheter and 0.035 angled | | Glidewire multiple attempts to traverse the occluded distal left basilic vein was | | unsuccessful. Subsequently, 4-Canadian angled glide catheter was exchanged for 7 [...] bypass versus new AV fistula in ri [facility] arm. | | | | | + [...] conscious sedation and | | | independent chcf supervision performed throughout the | | | [...] needle and | | | exchanged for 4-Canadian micropuncture sheath. Initial fistula | | | pressure was obtained and fistulogram obtained from the left cubital | | | fossa to the right atrium. 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 | | | 4-Canadian micropuncture sheath was exchanged for 6-Canadian short | | | sheath over a 0.035, angled Glidewire. Using combination of the | | | 4-Canadian angled glide catheter and 0.035 angled Glidewire multiple | | | attempts to traverse the occluded distal left basilic vein was | | | unsuccessful. Subsequently, 4-Canadian angled glide catheter was | | | [...] adequate conscious | | sedation and independent chcf supervision performed throughout the procedure. | | [...] micropuncture needle and | | exchanged for 4-Canadian micropuncture sheath. Initial fistula pressure was obtained and | | fistulogram obtained from the left cubital fossa to the right atrium. Given the | | multiple tandem stenosis in proximal left basilic vein and occlusion of at the level of | | left axilla, I decided to perform angioplasty of the venous lesions. 4-Canadian | | micropuncture sheath was exchanged for 6-Canadian short sheath over a 0.035, angled | | Glidewire. Using combination of the 4-Canadian angled glide catheter and 0.035 angled | | Glidewire multiple attempts to traverse the occluded distal left basilic vein was | | unsuccessful. Subsequently, 4-Canadian angled glide catheter was exchanged for 7 [...]
--- OUTSIDE RECORDS SUMMARY | ~2019-05-20 | XMS | Encounter Summary ---
Demographics + + + | Address | [address] | | | [place] [address] | + + + | Home Phone [...] Team Providers + +------+ + | Care Spa Technician Name | Role | Phone | + +------+ + PCP | Unavailable | + +------+ + Encounter Details +--------+ + + + + | Date | Type | Department | Care Team | Description | +--------+ + + + + | 07/06/ | Hospital | [facility] | Bhargav Díaz, | Sepsis ([facility]); | | 2012 - | Encounter | 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; Chest pain; | | 2012 | | [place], [place] | | Diabetes mellitus | | | | [address] | | with ESRD (end-stage | | | | [phone] | | renal disease) | | | | | | ([facility]); ESRD (end | | | | | | stage renal disease) | | | | | | on dialysis ([facility]); | | | | | | Febrile [...] dysfunction | | | | | | ([facility]); ESRD (end | | | | | | stage renal disease) | | | | | | ([facility]); Diabetes | | | | | | [...] | | | | | | continuous ([facility]); | | | | | | Anemia due to blood | | | | | | loss; Asthma; DM | | | | | | (diabetes mellitus) | | | | | | ([facility]); Bacteremia | | | | | | due to Gram-positive | | | | | | bacteria; DVT (deep | | | | | | venous thrombosis) | | | | | | ([facility]); GI bleed; | | | | | | Gout; HTN | | | | | | (hypertension); | | | | | | Hyperphosphatemia; | | | | | | 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 | | | | | | ([facility]); Obesity (BMI | | | | | | 30-39.9); Rash and | | | | | | nonspecific skin | | | | | | eruption; Secondary | | | | | | hyperparathyroidism | | | | | | (of renal origin) | | | | | | ([facility]); Severe | | | | | | protein-calorie | | | | | | malnutrition ([facility]); | | | | | | Septic arthritis of | | | | | | knee, right ([facility]); | | | | | | Type II or | | | | | | unspecified type | | | | | | diabetes mellitus | | | | | | without mention of | | | | | | complication, not | | | | | | stated as | | | | | | uncontrolled ([facility]); | | | | | | Unspecified [...] Summaries by Al Coon DO at 07/13/12 161 Author: Al Coon DO Service: (none) Author Type: Physician Filed: 07/13/12 4584 Date of Service: 07/13/128 Status: Signed Grounds Person: Al Coon DO (Physician) [facility] Service: Hospitalist Discharge Summary [...] Follow up: Tae Quiroz MD [address] [facility] [address] in 3 days Kisha Tello MD [facility] Infectious Disease [address] [facility] [address] on 07/29/2012 [facility] [address] [facility] [address] in 2 weeks Current Discharge Medication List [...] 20 mg by mouth nightly. ergocalciferol (DRISDOL) 64511 UNITS capsule Take 1 capsule by mouth [...] Reason for Stopping: folic acid-vitamin b complex-vitamin p-cxrovqdj-yjuy (DIALYVITE) 3 MG TABS Comments: Reason for [...] Author: VANDANA Olivia Service: (none) Author Type: Charge Out Clerk Filed: 07/14/12955 Date of Service: 07/14/12954 Status: Signed Grounds Person: VANDANA Olivia (Charge Out Clerk) CM contacted [facility] dialysis center in [place] and confirmed that IV Vancomycin orders johnson d been received by RN. onver quique Transaction, Provider Unknown - 07/13/2012 6:03 PM PST Progress Notes by Marco Antonio Tamez RN at 07/13/121802 Author: Marco Antonio Tamez RN Service: (none) Author Type: Registered Nurse Filed: 07/13/121804 Date of Service: 07/13/121802 Status: Signed Grounds Person: Marco Antonio Tamez RN (Registered Nurse) 07/13/2012, 6:03 PM Pt happy to be leaving with his niece and her 9month old daughter. Per gallery or museum attendant, after pt was wh eeled down and helped to care, pt's niece hit pt's knee with door. Pt stated that he was ok, per gallery or museum attendant. MARCO ANTONIO TAMEZ RN Cosmo Lang MD - 07/13/2012 12:14 PM PSTFormatting of this note might be different from the or iginal. Progress Notes by Cosmo Soria MD at 07/13/12 1214 Author: Cosmo Soria MD Service: Nephrology Author Type: Physician Filed: 07/13/12 1228 Date of Service: 07/13/124 Status: Signed Grounds Person: Cosmo Soria MD (Physician) PCP is [facility] LOS: 7 days Carol Potter is a 47 y.o. male who is being followed for ESRD management. I took over from Dr. Timmons 07/11/2012. He is admitted with MSSA bacteremia.Blood cultures from [facility] in [place] were rep orted as positive for MSSA. [...] vegetation visualized. Treatment team: Dr. Ry Meyer [facility] course: 07/11/29 Left brachiocephalic fistula revised. [...] mg Intravenous See Admin Instructions vitamin B bveadxe-V-keufg acid 1 tablet Oral Daily with breakfast [...] 1000 Date of Service: 07/13/12956 Status: Signed Grounds Person: Oskar Meyer MD (Physician) Patient doing well [...] 0939 Date of Service: 07/13/12937 Status: Signed Grounds Person: Ewa Cosby PT (Physical Therapist) 07/13/12 0917 PT Last Visit PT Received On 07/13/12 Requires PT Follow Up No Other Comments Comments Pt doing exceptionally well today. He was able to transfer OOB and ambulate 500' u sing a fww. He has a walker at home and support from spouse and step son. He [facility] to transport to/from HD. He [...] Notes by Kisha Tello MD at 07/13/12 0881 Author: Kisha Tello MD Service: (none) Author Type: Physician Filed: 07/13/12 1614 Date of Service: 07/13/12 0848 Status: Signed Grounds Person: Kisha Tello MD (Physician) [facility] Service: Infectious Disease Progress Note Hospital Day: [...] In April , he was hospitalized at [facility] for febrile illness with blood cultures in [...] c an appreciate light. Blood cultures from [facility] in [place] are now reported as positive for MSSA. [...] mg Intravenous See Admin Instructions vitamin B ifklelh-G-uktjx acid 1 tablet Oral Daily with breakfast [...] 07/13/12824 Date of Service: 07/13/12824 Status: Signed Grounds Person: Ambika Hanson RPH (Pharmacist) Day 7 Vancomycin No HD due today. No dose due. Al Zavala DO - 07/12/2012 3:38 PM PSTFormatting of this note might be different from the betina givivian. Progress Notes by Al Coon DO at 07/12/12 1538 Author: Al Coon DO Service: (none) Author Type: Physician Filed: 07/12/12 1540 Date of Service: 07/12/121537 Status: Signed Grounds Person: Al Coon DO (Physician) [facility] Service: Hospitalist Progress Note Hospital [...] mg Intravenous See Admin Instructions vitamin B nudjsfl-I-lvaee acid 1 tablet Oral Daily with breakfast [...] d. Procedure: RONY was done at the [facility] in the fasting state. Informed [...] Author: Katrin Mcrae Service: (none) Author Type: Charge Out Clerk Filed: 07/12/12 1442 Date of Service: 07/12/12 1441 Status: Signed Grounds Person: Katrin Mcrae (Registered Nurse) Spoke with Zaki at [facility]-they are ready to accept patient on Saturday. They will arrange f or dialysis on Saturday. CM will need to fax IV abx orders to [facility] as well. onver quique Transaction, Provider Unknown - 07/12/2012 2:12 PM PST Progress Notes by Katrin Mcrae at 07/12/12 1412 Author: Katrin Mcrae Service: (none) Author Type: Charge Out Clerk Filed: 07/12/12 1413 Date of Service: 07/12/12 1412 Status: Signed Grounds Person: Katrin Mcrae (Registered Nurse) Met with patient at bedside. He agrees that if DC is over the weekend-will go to [facility]. I f DC is on Saturday we will follow up with Shauna. Cosmo Lang MD - 07/12/2012 1:06 PM PSTFormatting of this note might be different from the or iginal. Progress Notes by Cosmo Soria MD at 07/12/12 1306 Author: Cosmo Soria MD Service: Nephrology Author Type: Physician Filed: 07/12/12 1320 Date of Service: 07/12/12 1306 Status: Signed Grounds Person: Cosmo Soria MD (Physician) PCP is [facility] LOS: 6 days Carol Potter is a 47 y.o. male who is being followed for ESRD management. I took over from Dr. Timmons 07/11/2012. He is admitted with MSSA bacteremia.Blood cultures from [facility] in [place] were rep orted as positive for MSSA. [...] visualized. Treatment team: Dr. Ry Tello Dr. [facility] course: 07/11/29 Left brachiocephalic fistula [...] mg Intravenous See Admin Instructions vitamin B fynocsk-M-nltnm acid 1 tablet Oral Daily with breakfast [...] Date of Service: 07/12/12 1156 Status: Signed Grounds Person: Duyen Raza MD (Physician) [facility] Service: Orthopedic Surgery Progress Note Hospital Day: [...] 07/12/12811 Date of Service: 07/12/12811 Status: Signed Grounds Person: Ambika Hanson RPH (Pharmacist) Day 6 Vancomycin Vancomycin 750mg given during last hour of HD yesterday. No HD scheduled for today, theref ore no dose. Will follow. onver quique Transaction, Provider Unknown - 07/12/2012 2:58 AM PST Progress Notes by Ayde Yu RN at 07/12/12257 Author: Ayde Yu RN Service: (none) Author Type: Registered Nurse Filed: 07/12/12309 Date of Service: 07/12/12257 Status: Signed Grounds Person: Ayde Yu RN (Registered Nurse) Pt blood [...] Author: VANDANA Olivia Service: (none) Author Type: Charge Out Clerk Filed: 07/11/128 Date of Service: 07/11/121630 Status: Signed Grounds Person: VANDANA Olivia (Charge Out Clerk) RADHA spoke with Prisca from [facility] re referral for placement. Prisca stated re ferral was under review and that they would need to find a PCP to follow Pt if he were admit gela to facility. If Pt accepted they would not be able to take him until Saturday. RADHA spoke with Zaki at [facility] who stated they would accept Pt and could take him over the weekend. They will coordinate dialysis with Breana for Saturday. CM attempted to speak with Pt re placement at [facility] and determine transport, but Pt [...] 1424 Date of Service: 07/11/121422 Status: Signed Grounds Person: Oskar Meyer MD (Physician) Cultures have been negative to date. Will plan on left arm fistula superficialization and placement of new right IJ permacath. PARQ done and consent was obtained. Oskar Meyer MD 07/11/2012 onversion Transrehan, Nik Knight - 07/11/2012 1:56 PM PST Progress Notes by VANDANA Olivia at 07/11/12 1356 Author: VANDANA Olivia Service: (none) Author Type: Charge Out Clerk Filed: 07/11/12 1357 Date of Service: 07/11/12 1356 Status: Signed Grounds Person: VANDANA Olivia (Charge Out Clerk) CM spoke with Prisca at [facility] re SNF referral. Prisca stated she would be a t [facility] by 3:00 PM to evaluate Pt for admission. Al Zavala DO - 07/11/2012 11:39 AM PSTFormatting of this note might be different from the betina givivian. Progress Notes by Al Coon DO at 07/11/12 1281 Author: Al Coon DO Service: (none) Author Type: Physician Filed: 07/11/12 1144 Date of Service: 07/11/12 1139 Status: Signed Grounds Person: Al Coon DO (Physician) [facility] [...] mg Intravenous See Admin Instructions vitamin B xlvtvvj-N-nigev acid 1 tablet Oral Daily with breakfast [...] Cosmo Soria MD at 07/11/12 1130 Author: Cosom Soria MD Service: Nephrology Author Type: Physician Filed: 07/11/12 1213 Date of Service: 07/11/12 1130 Status: Signed Grounds Person: Cosmo Soria MD (Physician) PCP is [facility] LOS: 5 days Carol Potter is a 47 y.o. male who is being followed for ESRD management. He is admitted with MSSA bacteremia.Blood cultures from [facility] in [place] were rep orted as positive for MSSA. [...] been afebrile last 24 hrs.Blood cultures from [facility] in [place] are now rep orted as positive for [...] mg Intravenous See Admin Instructions vitamin B zjguqjg-V-aclja acid 1 tablet Oral Daily with breakfast [...] fistula matures. [facility]. BP: Uncontrolled. Start low [...] 1017 Date of Service: 07/11/12912 Status: Signed Grounds Person: Kisha Tello MD (Physician) [facility] Service: Infectious Disease Progress Note Hospital Day: [...] In April , he was hospitalized at [facility] for febrile illness with blood cultures in [...] c an appreciate light. Blood cultures from [facility] in [place] are now reported as positive for MSSA. [...] 07/07. Events Overnight: planned for d/c to [facility] . No Complaints of nausea vom iting [...] mg Intravenous See Admin Instructions vitamin B acuyyec-Y-hzzyo acid 1 tablet Oral Daily with breakfast [...] 08/19/121907 Date of Service: 07/10/122150 Status: Signed Grounds Person: Juan Timmons MD (Physician) [facility] Service: NEPHROLOGY progress Note Carol Potter 47 y.o. [phone] 6629/[id number] male [facility] Hospital Day: LOS: 4 days The [...] W/ EGD; Surgeon: John Singleton MD; Location: [facility] ENDOSCOPY; Se rvice: Gastroenterology; Laterality: N/A; Av fistula placement 05/06/2012 Procedure: AV FISTULA; Surgeon: Oskar Meyer MD; Location: [facility] MAIN OR; Service: Vascul ar; Laterality: Left; Left arm possible right Unlisted procedure arthroscopy shoulder rt , ligaments Knee arthroscopy 07/07/2012 Procedure: KNEE - ARTHROSCOPY; Surgeon: Duyen Raza MD; Location: [facility] MAIN OR; S ervice: Orthopedics; Laterality: Right; After 1530 Catheter removal 07/07/2012 Procedure: DIALYSIS CATHETER REMOVAL; Surgeon: Oskar Meyer MD; Location: [facility] BEDSIDE [place] OCEDURE; Service: General; Laterality: Right; perm cath Dialysis fistula creation 07/07/2012 Procedure: DIALYSIS CATHETER INSERTION; Surgeon: Oskar Meyer MD; Location: [facility] BEDSIDE PROCEDURE; Service: General; Laterality: [...] 20 mg by mouth nightly. ergocalciferol (DRISDOL) 67993 UNITS capsule Take 1 capsule by mouth [...] by mouth daily. folic acid-vitamin b complex-vitamin t-ehhckzpw-zael (DIALYVITE) 3 MG TABS Take 1 table [...] nightly. Not sure of dosage vitamin B aixffle-F-jumtp acid (SUPER B VITAMINS) 0.8 MG TABS [...] BIOLOGICAL; 2 STEP KIDSUNEMPLOYED BEFORE WORKED AT [employer] IN [place] [employer] NONE ETOH QUIT 15 YEARS AGODRUGS: quit [...] mg Intravenous See Admin Instructions vitamin B hrassmh-T-cwsik acid 1 tablet Oral Daily with breakfast [...] Service: (none) Author Type: Physician Filed: 07/10/12 7917 Date of Service: 07/10/12 173 Status: Signed Grounds Person: Kisha Tello MD (Physician) [facility] Service: Infectious Disease Progress Note Hospital Day: [...] In April , he was hospitalized at [facility] for febrile illness with blood cultures in [...] c an appreciate light. Blood cultures from [facility] in [place] are now reported as positive for MSSA. [...] 07/07. Events Overnight: planned for d/c to [facility] . No Complaints of nausea vom iting [...] mg Intravenous See Admin Instructions vitamin B gfulpaj-A-cqqmt acid 1 tablet Oral Daily with breakfast [...] Author: VANDANA Olivia Service: (none) Author Type: Charge Out Clerk Filed: 07/10/121641 Date of Service: 07/10/121641 Status: Signed Grounds Person: VANDANA Olivia (Charge Out Clerk) CM spoke with Pt re PT recommendation for SNF. Pt in agreement, stated he preferred to go to [facility] in [facility]. Referral faxed to both [facility] and [facility]. Al Zavala DO - 07/10/2012 1:05 PM PSTFormatting of this note might be different from the betina ginal. Progress Notes by Al Coon DO at 07/10/12 3881 Author: Al Coon DO Service: (none) Author Type: Physician Filed: 07/10/12 9029 Date of Service: 07/10/121304 Status: Signed Grounds Person: Al Coon DO (Physician) [facility] Service: Hospitalist Progress Note Hospital [...] mg Intravenous See Admin Instructions vitamin B kjxknzo-F-dkfhr acid 1 tablet Oral Daily with breakfast [...] d. Procedure: RONY was done at the [facility] in the fasting state. Informed [...] Date of Service: 07/10/12 1205 Status: Signed Grounds Person: Giovany Bustamante PA-C (Physician Industrial Controller - Certified) [facility] Service: Orthopedic Surgery Progress Note Hospital Day: [...] by Juan Timmons MD at 07/09/122212 Author: Juna Timmons MD Service: Nephrology Author Type: Physician Filed: 08/19/121902 Date of Service: 07/09/122212 Status: Signed Grounds Person: Juan Timmons MD (Physician) [facility] Service: NEPHROLOGY progress Note Carol Potter 47 y.o. [id number] 6629/6629-1 male [facility] Day: LOS: 3 days The patient [...] W/ EGD; Surgeon: John Singleton MD; Location: [facility] ENDOSCOPY; Se rvice: Gastroenterology; Laterality: N/A; Av fistula placement 05/06/2012 Procedure: AV FISTULA; Surgeon: Oskar Meyer MD; Location: [facility] MAIN OR; Service: Vascul ar; [...] 20 mg by mouth nightly. ergocalciferol (DRISDOL) 37176 UNITS capsule Take 1 capsule by mouth [...] by mouth daily. folic acid-vitamin b complex-vitamin g-nekhefbo-elum (DIALYVITE) 3 MG TABS Take 1 table [...] nightly. Not sure of dosage vitamin B xdtexur-M-cfdmj acid (SUPER B VITAMINS) 0.8 MG TABS [...] BIOLOGICAL; 2 STEP KIDSUNEMPLOYED BEFORE WORKED AT [employer] IN [employer] NONE ETOH QUIT 15 YEARS AGODRUGS: quit [...] mg Intravenous See Admin Instructions vitamin B mbwhdhb-J-rknmf acid 1 tablet Oral Daily with breakfast [...] 07/09/121913 Date of Service: 07/09/121906 Status: Signed Grounds Person: Giovany Bustamante PA-C (Physician Industrial Controller - Certified) [facility] Service: Orthopedic Surgery Progress Note Hospital Day: [...] Notes by Erin Angel RD at 07/09/12 4934 Author: Erin Angel RD Service: (none) Author Type: Home Child Care Provider Filed: 07/09/12 1607 Date of Service: 07/09/12 1558 Status: Signed Grounds Person: Erin Angel RD (Home Child Care Provider) Elevated blood sugars, 223 fasting, 388 last [...] dose s/s. Erin Angel RD, CD, Inpatient Home Child Care Provider 07/09/2012 4:03 PM lsie Lerner S - 07/09/2012 10:56 AM PST Progress Notes by Elsie Lerner MD at 07/09/12 1056 Author: Elsie Lerner MD Service: (none) Author Type: Physician Filed: 07/09/12 1124 Date of Service: 07/09/12 1056 Status: Signed Grounds Person: Elsie Lerner MD (Physician) [facility] Service: Infectious Disease Progress Note Hospital Day: [...] In April , he was hospitalized at [facility] for febrile illness with blood cultures in [...] c an appreciate light. Blood cultures from [facility] in [place] are now reported as positive for MSSA. [...] mg Intravenous See Admin Instructions vitamin B xlizzuq-P-xislb acid 1 tablet Oral Daily with breakfast [...] Component Value Units Date/Time Body fluid crystal [[id number]] Collected:07/07/12 1839 Order Status:Completed Updated:07/09/12 0950 Specimen Information:Body Fluid FLUID CRYSTALS NO CRYSTALS SEEN Comment: Testing performed at [facility], [address] [place] [address] Stool culture [[id number]] Collected:07/07/12 1752 Order Status:Completed Updated:07/09/12 0909 Specimen Information:Stool / Stool Specimen Description STOOL Specimen Description Result: Testing performed at [facility];[address] [place] [address] CULTURE CULTURE IN PROGRESS CULTURE Result: Testing performed at [facility], [address] [place] [address] REPORT STATUS PENDING Blood culture, 2 of 2 [[id number]] (Abnormal) Collected:07/06/12 1804 Order Status:Completed Updated:07/09/12 0810 Specimen Information:Blood / Blood Specimen Description BLOOD GRAM STAIN Result: GRAM POSITIVE COCCI SEEN ON SMEAR OF AEROBIC BOTTLE GRAM STAIN Result: CALLED TO LANE/ZOLTAN Mccullough ON 07/08/12 AT 1016 BY READBACK GRAM STAIN Result: Testing performed at [facility];[address] [place] [address] CULTURE Result: STAPHYLOCOCCUS AUREUS FOR SUSCEPTIBILITIES SEE CULTURE [id number] COLLECTED ON THE SAME D ATE (A) CULTURE GROWTH IN ONE OF TWO BOTTLES (A) CULTURE TIME TO DETECTION: 1.65 DAYS CULTURE Result: Testing performed at [facility], [address] [place] [address] REPORT STATUS 07/09/2012 FINAL Blood culture, 1 of 2 [[id number]] (Abnormal) Collected:07/06/12 1800 Order Status:Completed Updated:07/09/12 0807 Specimen Information:Blood / Blood Specimen Description BLOOD SPECIAL REQUESTS R HAND SPECIAL REQUESTS Result: Testing performed at [facility];[address] [place] [address] 20209 GRAM STAIN Result: GRAM POSITIVE COCCI SEEN ON SMEAR OF ANAEROBIC BOTTLE GRAM STAIN Result: CALLED TO 6RP/EZEKIEL Villegas ON 07/07/12 AT 1337 BY READBACK GRAM STAIN Result: GRAM POSITIVE COCCI SEEN ON SMEAR OF AEROBIC BOTTLE GRAM STAIN Result: SMEAR RESULTS CALLED TO AND READ BACK BY: SHELL Romo IN 6RP @ 2155 BY [facility] GRAM STAIN Result: Testing performed at [facility];[address] [place] [address];[place] [address] CULTURE Result: STAPHYLOCOCCUS AUREUS SUSCEPTIBILITY TO FOLLOW (A) CULTURE GROWTH IN TWO OF TWO BOTTLES (A) CULTURE TIME TO DETECTION: 0.78 DAYS CULTURE Result: Testing performed at [facility], [address] [place] [address] REPORT STATUS 07/09/2012 FINAL Organism STAPHYLOCOCCUS AUREUS [...] TO FOLLOW Blood culture, 1 of 2 [[id number]] Collected:07/08/12 1630 Order Status:Completed Updated:07/09/12 0647 Specimen Information:Blood / Blood Specimen Description BLOOD, PERIPHERAL DRAW Specimen Description Result: Testing performed at [facility];[address] [place] [address] SPECIAL REQUESTS R HAND SPECIAL REQUESTS Result: Testing performed at [facility];[address] [place] [address]27 CULTURE NO GROWTH AT THIS TIME CULTURE Result: Testing performed at [facility], [address], [place] [address] REPORT STATUS PENDING Blood culture, 2 of 2 [[id number]] Collected:07/08/12 1636 Order Status:Completed Updated:07/09/12 0647 Specimen Information:Blood / Blood Specimen Description BLOOD, PERIPHERAL DRAW Specimen Description Result: Testing performed at [facility];[address] [place] [address]24[address] SPECIAL REQUESTS RAC SPECIAL REQUESTS Result: Testing performed at [facility];[address] [place] [address] 11414 CULTURE NO GROWTH AT THIS TIME CULTURE Result: Testing performed at [facility], [address] [place] [address] REPORT STATUS PENDING C diff toxin by PCR (TAT 3 hr in house) [[id number]] Collected:07/07/12 175 Order Status:Completed Updated:07/07/12 1904 Specimen Information:Stool / Stool Toxigenic C Difficile NEGATIVE Comment: Testing performed at [facility];[address] [place] [address] 027 NAP1 BI 027 NAP1 BI PRESUMPTIVE NEGATIVE Comment: Detection of 027 NAP1 BI strains of C. difficile is presumptive and for epidemiological purposes and not intended to guide or monitor treatment for C. difficile infections. Testing performed at [facility];[address] [place] [address]389 Fecal occult blood (in house) [[id number]] Collected:07/07/12 175 Order Status:Completed Updated:07/07/12 1828 Specimen Information:Stool Fecal Occult Blood NEGATIVE Comment: Testing performed at [facility];[address] [place] [address] MRSA by PCR [[id number]] Collected:07/07/12 1048 Order Status:Completed Updated:07/07/12 1211 Specimen Information:Nasopharyngeal / Nasopharyngeal Culture SOURCE NARES(NOSE) Comment: Testing performed at [facility];[address] [place] [address] RESULT NEGATIVE Comment: Testing performed at [facility];[address] [place] [address] 28587 Catheter tip culture Abnormal Status: Preliminary result MyChart: Not Released Component Value Flag Specimen Description OTHER DIALYSIS CATHETER TIP Specimen Description Testing performed at [facility];[address] [place] [address] CULTURE GREATER THAN 15 CFU STAPHYLOCOCCUS AUREUS SUSCEPTIBILITY TO FOLLOW A CULTURE Testing performed at [facility], [address] [place] [address] REPORT STATUS PENDING Order Details View Encounter [...] RIGHT KNEE Specimen Description Testing performed at [facility];[address] [place] [address] 57179 GRAM STAIN WBC'S SEEN GRAM NEGATIVE COCCI ON CYTO SPIN SLIDE GRAM STAIN PHONED TO DR RAZA AT 0045 BY LJ READBACK GRAM STAIN REVIEW OF SMEAR BY MICROBIOLOGY SHOWS THE FOLLOWING: NO ORGANISMS SEEN GRAM STAIN Testing performed at [address] [address] CULTURE 1+ STAPHYLOCOCCUS AUREUS SUSCEPTIBILITY TO FOLLOW A CULTURE Testing performed at [address] [address] REPORT STATUS PENDING Order Details View Encounter Lab and Collection Details Routing Result History Specimen Collected: 07/06/12 11:08 PM Last Resulted: 07/08/12 6:23 PM Encounter View Encounter Result Information Abnormal Status: Preliminary result (07/08/2012 6:23 PM) Provider Status: Ordered FLUID CULT W/GRAM STAIN Status: Preliminary result MyChart: Not Released Component Value Specimen Description SYNOVIAL FLUID R KNEE Specimen Description Testing performed at [facility];[address] [place] [address]755 SPECIAL REQUESTS [facility] TO DO GRAM SPECIAL REQUESTS Testing performed at [facility];[address] [place] [address]37 GRAM STAIN 2+ WBC'S SEEN GRAM STAIN NO ORGANISMS SEEN GRAM STAIN Testing performed at [facility];[address] [place] [address] CULTURE CULTURE IN PROGRESS CULTURE Testing performed at [address] [address] REPORT STATUS PENDING Order Details View Encounter Lab and Collection Details Routing Result History Specimen Collected: 07/07/12 6:39 PM Last Resulted: 07/08/12 4:08 PM Encounter View Encounter Result Information Status Preliminary result (07/08/2012 4:08 PM) Provider Status: Ordered Hepatitis B surface antigen Status: Final result MyChart: Not Released Value Range HEP B SURFACE AG NON REACTIVE NON REACTIVE Comments: Testing performed at [address] [address] Lab Flowsheet Order Details View Encounter Lab and Collection Details Routing Result History Specimen Collected: 07/07/12 3:13 PM Last Resulted: 07/07/12 6:37 PM Encounter View Encounter Result Information Status Final result (07/07/2012 6:37 PM) Provider Status: Ordered Radiology Results (last 7 days) Procedure Component Value Units Date/Time X-ray chest 1 view [[id number]] Collected:07/07/12 1630 Order Status:Completed Updated:07/07/12 1636 Narrative: [...] 2. No pneumothorax. hip left without contrast [[id number]] Resulted:07/07/12 1614 Order Status:Completed Updated:07/07/12 1615 Narrative: [...] 2012 4:14PM MRI hip right without contrast [[id number]] Resulted:07/07/121613 Order Status:Completed Updated:07/07/121613 Narrative: MRI OF [...] 07 2012 4:14PM X-ray knee limited right [[id number]] Collected:07/07/1245 Order Status:Completed Updated:07/07/12852 Narrative: HISTORY: Right [...] the medial femoral condyle. X-ray ankle left [[id number]] Collected:07/07/1244 Order Status:Completed Updated:07/07/12850 Narrative: HISTORY: Left ankle pain. COMPARISON: None. TECHNIQUE: AP, oblique, lateral films left ankle. FINDINGS: There is moderate diffuse soft tissue swelling about the ankle. Ankle mortise appears inta ct. No ankle fracture is seen. Arterial calcification extends into the distal foot. IMPRESSION: 1. Moderate soft tissue swelling about the ankle, without fracture. Chest PA and Lateral [[id number]] Collected:07/07/12827 Order Status:Completed Updated:07/07/12836 Narrative: CAROL POTTER [...] fied. brain wo contrast and MRA head [[id number]] Resulted:07/07/12 0735 Order Status:Completed Updated:07/07/12735 Narrative: MRI OF THE BRAIN WITHOUT CONTRAST PLUS [place] MRA 07/06/2012 HISTORY: Staphylococcal bacteremia. Clinical concern for septic embolization and stroke. COMPARISON: None. TECHNIQUE: 3-D zcpc-mv-ztypcj [place] MRA with multiprojectional 3-D MIP [...] matter disease if any is minimal. The [place] MRA shows no evidence for high-grade stenosis, central vessel occlusio n or [place] saccular aneurysm. Posterior communicating arteries [...] anges or metabolic process. 3. Unremarkable screening [place] MRA. 4. Maxillary sinus mucosal [...] 07/09/12922 Date of Service: 07/09/12920 Status: Signed Grounds Person: Al Coon DO (Physician) [facility] Service: Hospitalist Progress Note Hospital [...] mg Intravenous See Admin Instructions vitamin B rrlhrqm-U-ietoz acid 1 tablet Oral Daily with breakfast [...] d. Procedure: RONY was done at the [facility] in the fasting state. Informed [...] 07/09/12841 Date of Service: 07/09/12839 Status: Signed Grounds Person: Oskar Meyer MD (Physician) Patient tentatively on schedule for superficialization of left brachibasilic fistula on Sat pending negative blood cultures drawn yesterday. I will also place a new right IJ perma cath at that time. Will need to be NPO after midnight on . Oskar Meyer MD 07/09/2012 Chela Lima [facility] - 07/09/2012 8:14 AM PST Progress Notes by Chela Varela RPH at 07/09/12813 Author: Chela Varela RPH Service: (none) Author Type: Pharmacist Filed: 07/09/12816 Date of Service: 07/09/12813 Status: Signed Grounds Person: Chela Varela RPH (Pharmacist) Clinical Pharmacy Note - Renal Dose Adjustment Vancomycin dose was given ~1200 yesterday (not charted, but empty bag was sent down to [facility] last night). Vanco random level was drawn [...] Notes by Juan Timmons MD at 07/08/12 5000 Author: Juan Timmons MD Service: Nephrology Author Type: Physician Filed: 08/19/12 1064 Date of Service: 07/08/122219 Status: Signed Grounds Person: Juan Timmons MD (Physician) [facility] Service: NEPHROLOGY progress Note Carol Potter 47 y.o. [phone] [id number] male [place] [facility] Day: LOS: 2 days The patient [...] W/ EGD; Surgeon: John Singleton MD; Location: [facility] ENDOSCOPY; Se rvice: Gastroenterology; Laterality: N/A; Av fistula placement 05/06/2012 Procedure: AV FISTULA; Surgeon: Oskar Meyer MD; Location: [facility] MAIN OR; Service: Vascul ar; [...] 20 mg by mouth nightly. ergocalciferol (DRISDOL) 68625 UNITS capsule Take 1 capsule by mouth [...] by mouth daily. folic acid-vitamin b complex-vitamin n-phfgcvmy-wgzl (DIALYVITE) 3 MG TABS Take 1 table [...] nightly. Not sure of dosage vitamin B glcqbbc-G-proad acid (SUPER B VITAMINS) 0.8 MG TABS [...] BIOLOGICAL; 2 STEP KIDSUNEMPLOYED BEFORE WORKED AT [employer] IN [place] Apple[place] [employer] NONE ETOH QUIT 15 YEARS AGODRUGS: quit [...] mg Intravenous See Admin Instructions vitamin B eliozrf-K-hxmht acid 1 tablet Oral Daily with breakfast [...] for presumed endocarditis until ruled out by RNOY. Polyarthritis. Dr. Raza consulted CASE DISCUSSED IN [...] 07/08/122001 Date of Service: 07/08/122001 Status: Signed Grounds Person: Carmina Lara RPH (Pharmacist) Clinical Pharmacy Note: [...] 0855 Date of Service: 07/08/121808 Status: Addendum Grounds Person: Al Coon DO (Physician) Related Notes: Original Note by Al Coon DO (Physician) filed at 07/09/12 1422 [facility] Service: Hospitalist Progress Note Hospital [...] mg Intravenous See Admin Instructions vitamin B ozjtdcy-F-fqubs acid 1 tablet Oral Daily with breakfast DISCONTD: clindamycin 600 mg Intravenous Crystal Gazer to OR DISCONTD: gentamicin 1.5 mg/kg (Adjusted) [...] 161 Date of Service: 07/08/121610 Status: Signed Grounds Person: Zoltan Garcia RN (Registered Nurse) VSS. Pt. [...] Date of Service: 07/08/12 1356 Status: Addendum Grounds Person: Clari Vazquez RN (Registered Nurse) Related Notes: Original Note by Clari Vazquez RN (Registered Nurse) filed at 1359 Patient seen today by leather cleaner for evaluation due to a documented pressure [...] Notes by Kelley Toussaint RPH at 07/08/12 5878 Author: Kelley Toussaint RPH Service: (none) Author Type: Pharmacist Filed: 07/08/12 6921 Date of Service: 07/08/128 Status: Signed Grounds Person: Kelley Toussaint RPH (Pharmacist) Vancomycin Monitoring Clinician [...] 07/08/1251 Date of Service: 07/08/12949 Status: Signed Grounds Person: Erin Varela RN (Registered Nurse) Patient currently has a draining wound. Nasal PCR for MRSA is negative but Contact Isolati on is required until all pending cultures are final and negative for MRSA. Thank you. Erin Varela RN, BA, [employer] lsie Mercado S - 07/08/2012 9:00 AM PST Progress Notes by Elsie Lerner MD at 07/08/12899 Author: Elsie Lerner MD Service: (none) Author Type: Physician Filed: 07/08/12 1153 Date of Service: 07/08/12899 Status: Signed Grounds Person: Elsie Lerner MD (Physician) [facility] Service: Infectious Disease Progress Note Hospital Day: [...] In April , he was hospitalized at [facility] for febrile illness with blood cultures in [...] c an appreciate light. Blood cultures from [facility] in [place] are now reported as positive for MSSA. [...] mg Intravenous See Admin Instructions vitamin B lbstxrc-L-pjyoi acid 1 tablet Oral Daily with breakfast DISCONTD: clindamycin 600 mg Intravenous Crystal Gazer to [place] DISCONTD: meperidine 50 mg Intravenous [...] VANCOMYCIN,RANDOM 29.01 ug/mL Comments: Testing performed at [facility];[address] [place] [address] Lab Flowsheet Order Details View Encounter Lab and Collection Details Routing Result History Specimen Collected: 07/07/12 1:43 PM Last Resulted: 07/07/12 2:11 PM Encounter View Encounter Result Information Status Final result (07/07/2012 2:11 PM) Provider Status: Ordered Gentamicin level, random Abnormal Status: Final result MyChart: Not Released Value Flag Range GENTAMICIN, RANDOM 3.6 L 5.0 - 10.0 ug/mL Comments: Testing performed at [facility];[address] [place] [address] Lab Flowsheet Order Details View Encounter Lab and Collection Details Routing Result History Specimen Collected: 07/07/12 1:43 PM Last Resulted: 07/07/12 2:11 PM Hepatitis B surface antigen Status: Final result MyChart: Not Released Value Range HEP B SURFACE AG NON REACTIVE NON REACTIVE Comments: Testing performed at [facility], [address] [place] [address] Lab Flowsheet Order Details View Encounter Lab [...] R KNEE Specimen Description Testing performed at [facility];[address] [place] [address] SPECIAL REQUESTS [facility] TO DO GRAM SPECIAL REQUESTS Testing performed at [facility];[address] [place] [address] GRAM STAIN 2+ WBC'S SEEN GRAM STAIN NO ORGANISMS SEEN GRAM STAIN Testing performed at [facility];[address] [place] [address] CULTURE PENDING REPORT STATUS PENDING Order Details [...] Units Date/Time Blood culture, 1 of 2 [[id number]] (Abnormal) Collected:07/06/12 1800 Order Status:Completed Updated:07/08/12 1100 Specimen Information:Blood / Blood Specimen Description BLOOD SPECIAL REQUESTS R HAND SPECIAL REQUESTS Result: Testing performed at [facility];[address] [place] [address] GRAM STAIN Result: GRAM POSITIVE COCCI SEEN ON SMEAR OF ANAEROBIC BOTTLE GRAM STAIN Result: CALLED TO 6RP/EZEKIEL Villegas ON 07/07/12 AT 1337 BY LL READBACK GRAM STAIN Result: GRAM POSITIVE COCCI SEEN ON SMEAR OF AEROBIC BOTTLE GRAM STAIN Result: SMEAR RESULTS CALLED TO AND READ BACK BY: SHELL Romo IN 6RP @ 2155 BY LGS GRAM STAIN Result: Testing performed at [facility];[address] [place] [address] CULTURE Result: STAPHYLOCOCCUS AUREUS SUSCEPTIBILITY TO FOLLOW (A) CULTURE GROWTH IN TWO OF TWO BOTTLES (A) CULTURE TIME TO DETECTION: 0.78 DAYS CULTURE Result: Testing performed at [facility], [address] [place] [address] REPORT STATUS PENDING Blood culture, 2 of 2 [[id number]] (Abnormal) Collected:07/06/12 1804 Order Status:Completed Updated:07/08/12 1017 Specimen Information:Blood / Blood Specimen Description BLOOD GRAM STAIN Result: GRAM POSITIVE COCCI SEEN ON SMEAR OF AEROBIC BOTTLE GRAM STAIN Result: CALLED TO 6RP/ZOLTAN Mccullough ON 07/08/12 AT 1016 BY LL READBACK GRAM STAIN Result: Testing performed at [facility];[address] [place] [address] CULTURE GROWTH IN ONE OF TWO BOTTLES (A) CULTURE WORK UP IN PROGRESS AT MICRO LAB CULTURE Result: Testing performed at [facility];[address] [place] [address] REPORT STATUS PENDING C diff toxin by PCR (TAT 3 hr in house) [[id number]] Collected:07/07/12 1752 Order Status:Completed Updated:07/07/12 1904 Specimen Information:Stool / Stool Toxigenic C Difficile NEGATIVE Comment: Testing performed at [facility];[address] [place] [address] 027 NAP1 BI 027 NAP1 BI PRESUMPTIVE NEGATIVE Comment: Detection of 027 NAP1 BI strains of C. difficile is presumptive and for epidemiological purposes and not intended to guide or monitor treatment for C. difficile infections. Testing performed at [facility];[address] [place] [address] Fecal occult blood (in house) [[id number]] Collected:07/07/12 1751 Order Status:Completed Updated:07/07/12 1828 Specimen Information:Stool Fecal Occult Blood NEGATIVE Comment: Testing performed at [facility];[address] [facility];[place] [address] MRSA by PCR [[id number]] Collected:07/07/12 1048 Order Status:Completed Updated:07/07/12 1211 Specimen Information:Nasopharyngeal / Nasopharyngeal Culture SOURCE NARES(NOSE) Comment: Testing performed at [facility];[address] [facility];[place] [address] RESULT NEGATIVE Comment: Testing performed at [facility];[address] [place] [address];[place] [address] 07/04 Blood cultures from [place] - 3 of 3 bottles - MSSA, [...] Service: Nephrology Author Type: Physician Filed: 08/19/12 8960 Date of Service: 07/07/121932 Status: Signed Grounds Person: Juan Timmons MD (Physician) [facility] Service: NEPHROLOGY progress Note Carol Potter 47 y.o. [id number] male [place] [facility] Day: LOS: 1 day The patient [...] W/ EGD; Surgeon: John Singleton MD; Location: [facility] ENDOSCOPY; Se rvice: Gastroenterology; Laterality: N/A; Av fistula placement 05/06/2012 Procedure: AV FISTULA; Surgeon: Oskar Meyer MD; Location: [facility] MAIN OR; Service: Vascul ar; [...] 20 mg by mouth nightly. ergocalciferol (DRISDOL) 93866 UNITS capsule Take 1 capsule by mouth [...] by mouth daily. folic acid-vitamin b complex-vitamin x-wnaermxy-ymgm (DIALYVITE) 3 MG TABS Take 1 table [...] nightly. Not sure of dosage vitamin B unsxipq-F-uojsd acid (SUPER B VITAMINS) 0.8 MG TABS [...] BIOLOGICAL; 2 STEP KIDSUNEMPLOYED BEFORE WORKED AT [employer] IN [place] [employer] NONE ETOH QUIT 15 YEARS AGODRUGS: quit [...] mg Intravenous See Admin Instructions vitamin B fjaquea-J-ebsbo acid 1 tablet Oral Daily with breakfast DISCONTD: acyclovir 400 mg Oral BID DISCONTD: aminocaproic acid 500 mg Oral Q6H DISCONTD: calcitRIOL 0.25 mcg Oral Nightly DISCONTD: clindamycin 600 mg Intravenous Crystal Gazer to [place] DISCONTD: fish oil-omega-3 fatty acids 2 g Oral Daily DISCONTD: gentamicin 1 mg/kg (Adjusted) Intravenous Q8H DISCONTD: meperidine 50 mg Intravenous Once DISCONTD: omeprazole 20 mg Oral QAM AC DISCONTD: vitamin B tuoadra-W-lpcrw acid 1 tablet Oral Daily with breakfast [...] KNEE Specimen Description Value: Testing performed at [facility];[address] [place] [address] GRAM STAIN WBC'S SEEN GRAM NEGATIVE COCCI ON CYTO SPIN SLIDE GRAM STAIN PHONED TO DR RAZA AT 0045 BY READBACK GRAM STAIN Value: Testing performed at [facility];[address] [place] [address] CULTURE PENDING REPORT STATUS PENDING BODY FLUID CRYSTAL Collection Time 07/06/12 11:08 PM Component Value Range FLUID CRYSTALS PRESENT BODY FLUID CELL COUNT Collection Time 07/06/12 11:08 PM Component Value Range FLUID TYPE SYNOVIAL FLUID COLOR WHITE APPEARANCE HAZY RBC'S 55355 WBC'S 26184 Neutrophil Count, Fluid 98 LYMPHOCYTES 0 MONOCYTES/MACROPHAGES 2 EOSINOPHILS 0 Mesothelial Cells 0 OTHER CELLS 0 Cells Counted 100 FLUID CULT W/GRAM STAIN Collection Time 07/06/12 11:09 PM Component Value Range Specimen Description SYNOVIAL FLUID LEFT ANKLE Specimen Description Value: Testing performed at [facility];[address] [place] [place] [address] GRAM STAIN WBC'S SEEN NO ORGANISMS SEEN ON CYTOSPIN SLIDE GRAM STAIN PHONED TO DR RAZA AT 0045 BY LJ READBACK GRAM STAIN Value: Testing performed at [facility];[address] [place] [address] CULTURE PENDING REPORT STATUS PENDING POCT GLUCOSE [...] KNEE Specimen Description Value: Testing performed at [facility] [address] SPECIAL REQUESTS [facility] TO DO GRAM SPECIAL REQUESTS Value: Testing performed at [facility];[address] [facility] [address] GRAM STAIN 2+ WBC'S SEEN GRAM STAIN NO ORGANISMS SEEN GRAM STAIN Value: Testing performed at [facility] [address] CULTURE PENDING REPORT STATUS PENDING CYTOLOGY ORDER NOTIFICATION ONLY Collection Time 07/07/12 6:43 PM Component Value Range CYTOLOGY ORDER NOTIFICATION ONLY SEE PATHOLOGY ORDER FOR RESULT. IMAGING: MRI hip right without contrast [[id number]] Resulted:07/06/122307 Order Status:Completed Updated:07/06/122307 Narrative: Preliminary report [...] IN DETAIL WITH PATIENT/ HOSPITALIST/ dr meyer [facility] surgeon, ANSWERS ALL QUESTI ONS IN DETAIL, [...] 07/07/121917 Date of Service: 07/07/121911 Status: Signed Grounds Person: Yusra Vallejo RN (Registered Nurse) Pt returned [...] Date of Service: 07/07/12 1633 Status: Signed Grounds Person: Shyanne Campbell RN (Registered Nurse) Per radiology, no pneumothorax seen. Okay to use the line. Report called at 1630. onver quique Transaction, Provider Unknown - 07/07/2012 4:15 PM PST Progress Notes by Vaishnavi Mccall RN at 07/07/12 1615 Author: Vaishnavi Mccall RN Service: (none) Author Type: Registered Nurse Filed: 07/07/12 1616 Date of Service: 07/07/12 1615 Status: Signed Grounds Person: Vaishnavi Mccall RN (Registered Nurse) X-ray in pre-op going into room 1. Vaishnavi Mccall RN 07/07/2012. 4:16 PM onver quique Transaction, Provider Unknown - 07/07/2012 4:09 PM PST Progress Notes by Vaishnavi Mccall RN at 07/07/12 1609 Author: Vaishnavi Mccall RN Service: (none) Author Type: Registered Nurse Filed: 07/07/12 1615 Date of Service: 07/07/12 1609 Status: Signed Grounds Person: Vaishnavi Mccall RN (Registered Nurse) Dr. Meyer removed HD cath from R chest. Inserted new HD cath in L upper chest. Drsgs c/d/i. C hest x-ray ordered by Dr. Meyer. WINE MERCHANT still in room with pt. K-rider still infusing without nik walker. Vaishnavi Mccall RN 07/07/2012 4:11 PM onver quique Transaction, Provider Unknown - 07/07/2012 3:38 PM PST Progress Notes by Vaishnavi Mccall RN at 07/07/12 1538 Author: Vaishnavi Mccall RN Service: (none) Author Type: Registered Nurse Filed: 07/07/12 1541 Date of Service: 07/07/12 1538 Status: Signed Grounds Person: Vaishnavi Mccall RN (Registered Nurse) Dr. Meyer into talk with pt. Going to do procedure with HD cath in pre-op room with WINE MERCHANT. Th en will go to OR for [...] 07/07/121516 Date of Service: 07/07/127 Status: Signed Grounds Person: Kelley Toussaint RPH (Pharmacist) Vancomycin Monitoring Clinician [...] 1307 Date of Service: 07/07/121302 Status: Signed Grounds Person: Duyen Raza MD (Physician) [facility] Service: Orthopedic Surgery Progress Note Hospital Day: [...] Notes by Shyanne Benavides RN at 07/07/12 1230 Author: Shyanne Benavides RN Service: (none) Author Type: Charge Out Clerk Filed: 07/07/12 1246 Date of Service: 07/07/121238 Status: Signed Grounds Person: Shyanne Benavides RN (Charge Out Clerk) CM met with spouse - she is staying in the room with pt. They are from [place] and are co nnected with [facility]. 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 For more financial assistance) Provided [...] Notes by Carmina Lara RPH at 07/06/12 7252 Author: Carmina Lara RPH Service: (none) Author Type: Pharmacist Filed: 07/06/122335 Date of Service: 07/06/122335 Status: Signed Grounds Person: Carmina Lara RPH (Pharmacist) Clinical Pharmacy Note: [...] 07/06/122207 Date of Service: 07/06/122206 Status: Signed Grounds Person: Carmina Lara RPH (Pharmacist) Clinical Pharmacy Note: Pharmacy Dosing Gentamicin (Conventional Dosing); Day 1 Carol Potter 47 y.o. male Ht Readings from Last 1 Encounters: 07/06/12 1.702 m (5' 7") Wt Readings from Last 1 Encounters: 07/06/12 72.576 kg (160 lb) [place] dosing weight: 68.7 kg Patient is on hemodialysis - usual schedule Sat-Sat-Sat WBC Date Value Range Status 07/06/2012 23.5* 3.8 - 11.0 K/uL Final Testing performed at [facility];[address] [place] [address];[place] [address] INDICATION: Endocarditis Patient received a dose of [...] 07/06/122202 Date of Service: 07/06/122202 Status: Signed Grounds Person: Carmina Lara RPH (Pharmacist) Clinical Pharmacy Note: Vancomycin Day 1 Pharmacy Dosing Vancomycin per Renal Failure Protocol for Patients on Hemodialysis Carol Jim47 y.o. male Ht Readings from Last 1 Encounters: 07/06/12 1.702 m (5' 7") Wt Readings from Last 1 Encounters: 07/06/12 72.576 kg (160 lb) WBC Date Value Range Status 07/06/2012 23.5* 3.8 - 11.0 K/uL Final Testing performed at [facility];[address] [place] [address];[place] [address] Usual dialysis schedule: Sat-Sat-Sat INDICATION: Endocarditis First [...] | EXTERNAL LAB | | performed at [facility];[address] [place] [address];[place] [address] 027 NAP1 BI | | | 027 NAP1 BI PRESUMPTIVE NEGATIVE | | | Detection of 027 NAP1 BI strains of C. difficile is presumptive and | | | for epidemiological purposes and not intended to guide or monitor | | | treatment for C. difficile infections. Testing performed at [facility] [facility];[address] | | | [facility];[place] [address] | | + + + + +---------+ [...] | EXTERNAL LAB | | performed at [facility];[address] [facility];[place] [address] 027 NAP1 BI | | | 027 NAP1 BI PRESUMPTIVE NEGATIVE | | | Detection of 027 NAP1 BI strains of C. difficile is presumptive and | | | for epidemiological purposes and not intended to guide or monitor | | | treatment for C. difficile infections. Testing performed at [facility];[address] | | | [facility];[place] [address] | | + + + + +---------+ [...] Testing performed | | | at [facility];[address] [place] [address];[place] [address] SPECIAL REQUESTS | | | RAC | | | Testing performed at [facility];[address] [place] [address];[place] [address] | | | CULTURE NO GROWTH IN 5 DAYS. | | | Testing | | | performed at [facility], [address] [facility] [place] [address] REPORT STATUS | | | 07/14/2012 FINAL [...] Testing performed | | | at [facility];[address] [facility];[place] [address] SPECIAL REQUESTS | | | R HAND | | | Testing performed at [facility];[address] [facility];[place] [address] | | | CULTURE NO GROWTH IN 5 DAYS. | | | Testing | | | performed at [facility], [address] [place] [address] REPORT STATUS | | | 07/14/2012 FINAL [...] LAB | | Testing performed at [facility];[address] | | | [address];[place] [address] OVA AND PARASITES | | | SPECIMEN DESCRIPTION: UNFORMED | | | NO OVA OR PARASITES SEEN | | | Testing performed at [facility], [address] [place] [address] | | | [place] [address] REPORT STATUS | | | 07/11/2012 FINAL [...] EXTERNAL LAB | | Testing performed at [facility], [address] [place] | | | [address] | | + + + + +---------+ [...] | EXTERNAL LAB | | performed at [facility];[address] [facility];[place] [address] 027 NAP1 BI | | | 027 NAP1 BI PRESUMPTIVE NEGATIVE | | | Detection of 027 NAP1 BI strains of C. difficile is presumptive and | | | for epidemiological purposes and not intended to guide or monitor | | | treatment for C. difficile infections. Testing performed at [facility];[address] | | | [facility];[place] [address] | | + + + + +---------+ [...] LAB | | Testing performed at [facility];[address] | | | [facility];[place] [address] CULTURE | | | NO SALMONELLA, SHIGELLA, [...] TESTING. | | | Testing performed at [facility], [address], | | | [place] [address] REPORT STATUS | | | 07/10/2012 FINAL [...] | EXTERNAL LAB | | performed at [facility];[address] [place] [address];[place] [address] | | + + + + +---------+ [...] LAB | | Testing performed at [facility];[address] [place] [address];[place] [address] MRSA PCR | | | NEGATIVE Testing performed at | | | [address];[place] [address] | | + + + + +---------+ [...] no pericardial effusion. | | | MEASUREMENTS Wanigan Clerk: PAUL Authenticated by: | | | Jayy Heller MD Report Date/Time: 07-07-2012 14:01:40 | | + + + + + | Procedure Note | + + | Khalif Palm - 02/13/2019 4:30 PM PDT Patient Name: Mohinder POTTER of | | : 1965 Performing Physician: Jayy Helelr | | INDICATIONS R | | /O [...] is no pericardial | | effusion. MEASUREMENTS [place]igan Clerk: DEBIuthenticated by: Jayy Heller | | MDReport [...] | |MEASUREMENTS | | | | | |Wanigan Clerk: PAUL | |Authenticated by: Jayy Heller MD | |Report Date/Time: 07-07-2012 14:01:40 | + + Medical Cytology (07/07/2012 12:00 AM PST) + + | Specimen | + + | | + + + + + | Narrative | Performed At | + + + | CASE: [id number] PATIENT: CAROL POTTER Cytology Report | EXTERNAL [...] interpretation was | | | performed by [facility], [facility], [address] | | | [place] [address] (Board Of Education Secretary: Trevor | | Samantha Dan M.D.; CLIA#: [id number]). Technical preparation was | | | performed by [facility], [address] [facility] | | | [place] [address] (Board Of Education Secretary: Duyen Baez M.D.; CLIA#: | | | [id number]). Kalpana Palomo CT(ASCP) | | | Electronically signed Jul 09, 2012 9:34:15AM Trevor Dan MD | | | Electronically signed Jul 09, 2012 3:38:43PM | | + + + + +---------+ + + | Performing | Address | City[facility] | Phone Number | | Organization [...] MRI OF THE BRAIN WITHOUT CONTRAST PLUS [place] MRA | | | 07/06/2012 HISTORY: Staphylococcal bacteremia. Clinical concern | | | for septic embolization and stroke. COMPARISON: None. | | | TECHNIQUE: 3-D [id number]-sr-bslidm [place] of [place] MRA with | | | [...] any is minimal. The | | | [place] MRA shows no evidence for high-grade stenosis, | | | central vessel occlusion or [place] saccular aneurysm. | | | [...] changes or metabolic process. 3. Unremarkable screening [place] of | | | Yang MRA. 4. [...] THE BRAIN WITHOUT CONTRAST PLUS | | [place] MRA 07/06/2012 HISTORY: Staphylococcal bacteremia. Clinical concern for | | septic embolization and stroke. COMPARISON: None. TECHNIQUE: 3-D hkpr-fg-[id number] [place] | | of Yang MRA with multiprojectional [...] | disease if any is minimal. The [place] MRA shows no evidence for high-grade | | stenosis, central vessel occlusion or [place] saccular aneurysm. Posterior | | [...] | | metabolic process. 3. Unremarkable screening [place] of [place] MRA. 4. Maxillary sinus | | mucosal thickening and mild mastoid fluid signal. Electronically signed by Isaac Morgan | | MD Ronel on Jul 07 2012 7:35AM | |3. Unremarkable screening [place] of [place] MRA. | | | |4. [...] NHAN | | | Testing performed at [facility];[address] [place] [address];[place] [address] CULTURE | | | STAPHYLOCOCCUS AUREUS FOR | | | SUSCEPTIBILITIES SEE CULTURE [id number] COLLECTED ON THE SAME | | | DATEAbnormal | | | GROWTH IN TWO OF TWO BOTTLESAbnormal | | | TIME TO DETECTION: 1.65 DAYS | | | Testing performed at [facility], [address] | | | [place] [address] REPORT STATUS | | | 07/09/2012 FINAL [...] | | | Testing performed at [facility];[address];[place] [address] GRAM STAIN | | | GRAM POSITIVE [...] LGS | | | Testing performed at [facility];[address] | | | [facility];[place] [address] CULTURE | | | STAPHYLOCOCCUS AUREUS SUSCEPTIBILITY TO FOLLOWAbnormal | | | GROWTH IN TWO OF TWO | | | BOTTLESAbnormal | | | TIME TO DETECTION: 0.78 DAYS | | | Testing performed at [facility], [address], | | | [place] [address] REPORT STATUS | | | 07/09/2012 FINAL [...]
--- OUTSIDE RECORDS SUMMARY | ~2019-05-20 | XMS | Encounter Summary ---
Demographics + + + | Address | [address] | | | [place] [address] | + + + | Home Phone [...] Team Providers + +------+ + | Care Asl Interpreter Name | Role | Phone | + +------+ + PCP | Unavailable | + +------+ + Encounter Details +--------+ + + + + | Date | Type | Department | Care Team | Description | +--------+ + + + + | 04/30/ | Hospital | [facility] | Conversion | ESRD (end stage | | 2014 | Encounter | CENTER CV INTRA OP | Transaction, | renal disease) (HCC) | | | | [address] | Provider Unknown | | | | | [place], [place] | [phone] | | | | | [address] | | | | | | [phone] | Juan Timmons MD | | | | | | [address] | | | | | | [place] | | | | | | [address] | | | | | | | [...] 04/30/141711 Date of Service: 04/30/141709 Status: Signed Cash Van Salesperson: Vickie Hernandez RN (Registered Nurse) DC inst. D/w patient and spouse, copies given. Pt to f/u with Dr. Timmons (pt to call on [facility] for appt). VSS. DC to home. KPEOTRDave [...] PROCEDURE I met this patient in the [employer] holding area. I had | | | [...] met this patient | | in the [employer] holding area. I had a discussion with [...] AUREUSAbnormal | | | Testing performed at [facility], [address] [facility] | | | [place] [address] | | + + + + +---------+ [...]
--- OUTSIDE RECORDS SUMMARY | ~2019-05-20 | XMS | Encounter Summary ---
Demographics + + + | Address | [address] | | | [place] [address] | + + + | Home Phone [...] Team Providers + +------+ + | Care Freight Rate Specialist Name | Role | Phone | + +------+ + PCP | Unavailable | + +------+ + Encounter Details +--------+ + + + + | Date | Type | Department | Care Team | Description | +--------+ + + + + | 04/24/ | Hospital | [facility] | Conversion | ESRD (end stage | | 2012 | Encounter | MEDICAL CENTER | Transaction, | renal disease) (HCC) | | | | [address] | Provider Unknown | | | | | [place] | [phone] | | | | | [place], [place] | | | | | | [address] | Juan Cook MD | | | | | [phone] | [address] [facility] | | | | | | [place] | | | | | | [address] | | | | | | | [...] Notes by Juan Cook MD at 04/24/12 9742 Author: Juan Cook MD Service: Nephrology Author Type: Physician Filed: 04/24/12 3458 Date of Service: 04/24/12 1256 Status: Signed Bee Breeder: Juan Cook MD (Physician) [facility] Service: NEPHROLOGY DIALYSIS Note Carol Stanton 47 y.o. 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 SAYS FEEL OK, C/O ITCHY SKIN DENIES [...] WITH [employer]; KIDSUNEMPLOYED BEFORE WORKED AT [employer] IN [place]/ [employer] NONE ETOH QUIT 15 YEARS AGODRUGS: USES [...] GIVEN GOING TO SEE JANNY PCP AT [facility] AT [facility] FOR ANTICOAGULATION LIKELY DUE TO RIGHT PERMCATH AND HAD LEFT PICC LINE IN THE HOSPITAL NOW REMOVED JUAN COOK MD 04/24/2012 JANNY AYERS MD LEE, PA-C [facility] documented in this en counter Plan of [...] | system. The possibility of "sound alike" aircraft cleaner errors, | | | addition and/or deletions may occur. If there is any question about | | | this report please contact the originating radiologist. | | | | | + + + + + | Procedure Note | + + | Khalif Palm - 02/14/2019 4:18 AM PDT [facility] | | MAPPING [id number]/1/2012 10:49 AM HISTORY:47 years. Male. End-stage renal [...] | recognition system.The possibility of "sound alike" aircraft cleaner errors, addition | | and/or deletions may [...] system. | |The possibility of "sound alike" aircraft cleaner errors, addition and/or deletions may occur. If [...]
--- OUTSIDE RECORDS SUMMARY | ~2019-05-20 | XMS | Encounter Summary ---
Demographics + + + | Address | [address] | | | [place] [address] | + + + | Home Phone [...] Team Providers + +------+ + | Care Dry Color Mixer Name | Role | Phone | + +------+ + PCP | Unavailable | + +------+ + Encounter Details +--------+ + + + + | Date | Type | Department | Care Team | Description | +--------+ + + + + | 04/24/ | Hospital | [facility] | Conversion | ESRD (end stage | | 2012 | Encounter | MEDICAL CENTER | Transaction, | renal disease) (HCC) | | | | [address] | Provider Unknown | | | | | [place] | [phone] | | | | | [place], [place] | | | | | | [address] | Juan Cook MD | | | | | [phone] | [address] [facility] | | | | | | [place] | | | | | | [address] [...] Notes by Juan Cook MD at 04/24/12 9689 Author: Juan Cook MD Service: Nephrology Author Type: Physician Filed: 04/24/12 9361 Date of Service: 04/24/12 125 Status: Signed Laborer [employer] Terminal: Juan Cook MD (Physician) [facility] Service: NEPHROLOGY DIALYSIS Note Carol Stanton 47 y.o. [id number] Room/bed info not found male [facility] Hospital Day: LOS: 0 days SUBJECTIVE Patient seen and examined TODAY IN THE RADIOLOGY DEPT CAME FOR VEIN MAPPING FROM [facility]. SAYS FEEL OK, C/O ITCHY SKIN DENIES [...] WITH [employer]; KIDSUNEMPLOYED BEFORE WORKED AT [employer] IN [place]/ [employer] Systems[employer]KE NONE ETOH QUIT 15 YEARS AGODRUGS: USES [...] GIVEN GOING TO SEE JANNY PCP AT [facility] AT [facility] FOR ANTICOAGULATION LIKELY DUE TO RIGHT PERMCATH AND HAD LEFT PICC LINE IN THE HOSPITAL NOW REMOVED JUAN COOK MD 04/24/2012 JANNY AYERS MD LEE, PA-[facility] documented in this en counter [...] Performed At | + + + | [facility] MAPPING BILATERAL [...] | system. The possibility of "sound alike" news cameraman errors, | | | addition and/or deletions may occur. If there is any question about | | | this report please contact the originating radiologist. | | | | | + + + + + | Procedure Note | + + | Khalif Palm - 02/14/2019 4:18 AM PDT [facility] | | MAPPING LAKNETVJW22/1/2012 10:49 AM HISTORY:47 years. Male. End-stage renal [...] | recognition system.The possibility of "sound alike" news cameraman errors, addition | | and/or deletions may [...] system. | |The possibility of "sound alike" news cameraman errors, addition and/or deletions may occur. If [...]
--- OUTSIDE RECORDS SUMMARY | ~2019-05-20 | XMS | Encounter Summary ---
Demographics + + + | Address | [address] | | | [place] [address] | + + + | Home Phone [...] Team Providers + +------+ + | Care Volunteer Fire Fighter Name | Role | Phone | + +------+ + PCP | Unavailable | + +------+ + Encounter Details +--------+ + + + + | Date | Type | Department | Care Team | Description | +--------+ + + + + | 02/15/ | Hospital | [facility] | Katie, | ESRD (end stage | | 2017 - | Encounter | [facility] | MD Frank [address] | renal disease) on | | | | CARE FLOOR [address] | [address] | dialysis (HCC); | | 02/19/ | | [address] | [place] [address] | Corneal ulcer, | | 2017 | | [place], [place] | [phone] | right; Acidemia; | | | | [address] | | Hyperkalemia; Rash | | | | [phone] | | | +--------+ + + + [...] Date of Service: 02/19/17 112 Status: Signed Community Living Instructor: Khanh Rangel MD (Physician) [facility] Service: Hospitalist Discharge Summary Date of [...] Dr Timmons and even tually went to [facility] and he was then transferred to [facility] for management. His labs showed [...] pictures were forwa rded to Dr. Mitchell personnel security specialist from Dermatology services who agreed with steroid [...] exacerbation (HCC) 10/27/2013 Chronic systolic heart failure ([facility]) 09/10/2016 Diabetes mellitus type I ([facility]) Dialysis patient ([facility]) DVT (deep venous thrombosis) ([facility]) x3 GI bleed 04/30/2012 from coumadin Gout Hyperkalemia 11/09/2013 Hyperlipidemia Hyperphosphatemia 05/24/2012 Hypertension Hyponatremia 09/08/2016 Knee pain, right 07/06/2012 MSSA (methicillin susceptible Staphylococcus aureus) infection 04/11/2012 Neuromuscular disorder ([facility]) neuropathy 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[facility]) 05/01/2012 Rash and nonspecific skin eruption 04/03/2012 SOB (shortness of breath) 10/27/2013 Thyroid disease Walker as ambulation aid Past Surgical History Procedure Laterality Date AV FISTULA PLACEMENT Right 02/09/2014 Procedure: AV FISTULA; Surgeon: Oskar Meyer MD; Location: [facility] MAIN OR; Service: Vascula r; Laterality: Right; AV FISTULA PLACEMENT Left 05/06/2012 Procedure: AV FISTULA; Surgeon: Oskar Meyer MD; Location: [facility] MAIN OR; Service: Vascula r; Laterality: Left; Left arm possible right AV FISTULA REPAIR Left 07/11/2012 Procedure: AV FISTULA - GRAFT REPAIR/REVISION; Surgeon: Oskar Meyer MD; Location: [facility] IN OR; Service: Vascular; Laterality: Left; Superficialization of brachiobasilic fistula and right IJ perm cath insertion CATHETER REMOVAL Right 07/07/2012 Procedure: DIALYSIS CATHETER - REMOVAL; Surgeon: Oskar Meyer MD; Location: [facility] BEDSIDE P ROCEDURE; Service: General; Laterality: Right; perm cath COLONOSCOPY WITH EGD N/A 05/01/2012 Procedure: COLONOSCOPY W/ EGD; Surgeon: John Singleton MD; Location: [facility] ENDOSCOPY; Ser vice: Gastroenterology; Laterality: N/A; DIALYSIS FISTULA CREATION Left 07/11/2012 Procedure: DIALYSIS CATHETER - INSERTION; Surgeon: Oskar Meyer MD; Location: [facility] MAIN OR ; Service: Vascular; Laterality: Left; removed dialysis catheter from left neck and place d new on in left chest, attempted in right neck but unable to place DIALYSIS FISTULA CREATION Left 07/07/2012 Procedure: DIALYSIS CATHETER - INSERTION; Surgeon: Oskar Meyer MD; Location: [facility] BEDSIDE PROCEDURE; Service: General; Laterality: Left; temporary dialysis catheter KNEE ARTHROSCOPY Right 07/07/2012 Procedure: KNEE - ARTHROSCOPY; Surgeon: Favio Raza MD; Location: [facility] MAIN OR; rvice: Orthopedics; Laterality: Right; After 1530 SUPERFICIALIZATION OF AV FISTULA Right 03/30/2014 Procedure: AV FISTULA - SUPERFICIALIZATION; Surgeon: Oskar Meyer MD; Location: [facility] MAIN OR; Service: Vascular; [...] venogra m 5. Right brachiocephalic/subclavian venous angioplasty PLASTER FORM MAKER: Jimenez Garnica MD, PhD, RPVI PROCEDURE: Informed [...] not pass into the SVC. An 8 Kuwaiti sheath wa s placed and a central venogram was performed which demonstrated a brachiocephalicA/SVC conf luence focal stenosis. Using multiple obliquities, the catheter and wire were successfully p assed beyond the stent into the inferior vena cava. Patient was heparinized An 10 Kuwaiti she ath was placed. A wire and [...] and a small incision was made. A 14.5-Kuwaiti 1006.tvrom e 23 cm tip to cuff hemodialysis [...] on file. Follow [place]: [place] [address] [place] [address] In 1 week Fela Mayberry MD [address] [facility] [place] [phone] In 1 week HD as scheduled. Medication [...] disease) on dialysis ([facility]) Commonly known as: RENVELA take 3 tablets [...] 02/19/171815 Date of Service: 02/19/171815 Status: Signed Community Living Instructor: Britta Hussein RN (Registered Nurse) Pt. being [...] 1743 Date of Service: 02/19/171738 Status: Signed Community Living Instructor: Pamela Burch RN (Registered Nurse) CM discussed D/C plans with pt. was [place] ride [place] friend. Upon discharge wanted meal voucher and stated no ride was available. [facility] and [facility] declined transport based on [...] 02/19/17642 Date of Service: 02/19/17641 Status: Signed Community Living Instructor: Valorie Coon RN (Registered Nurse) No changes to initial assessment. Medicated once for pain. No further bleeding noted from t he groin. Will continue to monitor onver quique Transaction, Provider Unknown - 02/19/2017 4:03 AM PDT Nurse Progress Note by Valorie Coon RN at 02/19/17402 Author: Valorie Coon RN Service: (none) Author Type: Registered Nurse Filed: 02/19/17402 Date of Service: 02/19/17402 Status: Signed Community Living Instructor: Valorie Coon RN (Registered Nurse) 24 hour chart check complete VALORIE OCON RN 02/19/2017 4:03 AM onver quique Transaction, Provider Unknown - 02/18/2017 10:23 PM PDT Nurse Progress Note by Valorie Coon RN at 02/18/172222 Author: Valorie Coon RN Service: (none) Author Type: Registered Nurse Filed: 02/18/172226 Date of Service: 02/18/172222 Status: Signed Community Living Instructor: Valorie Coon RN (Registered Nurse) Patient sitting [...] 02/18/171830 Date of Service: 02/18/171820 Status: Signed Community Living Instructor: Jose Paz MD (Physician) [facility] Service: Hospitalist Progress Note Carol Potter 51 y.o. [id number] male [place] [facility] Day: LOS: 1 day SUBJECTIVE Patient [...] with Dr Timmons and eventually went to [facility] and he was then transferred to [facility] for management. His labs showed [...] lesion pictures were forwarded to Dr. Mitchell personnel security specialist from Dermatology services who agreed with steroid [...] disease) on dialysis ([facility]) Active Problems: Rash Diabetes mellitus with ESRD (end-stage renal disease) ([facility]) HTN (hypertension) Hyponatremia Eczema of both upper [...] 02/18/171652 Date of Service: 02/18/171652 Status: Signed Community Living Instructor: Britta Hussein RN (Registered Nurse) Diet advanced per order, pt tolerating well. New tunneled catheter site oozing blood, sand bag applied. Bleeding slowing down. Will monitor. onver quique Transaction, Provider Unknown - 02/17/2017 12:49 PM PDT Nurse Progress Note by Maude Fitzgerald RN at 02/17/17 0433 Author: Maude Fitzgerald RN Service: (none) Author Type: Registered Nurse Filed: 02/17/17 1114 Date of Service: 02/17/171248 Status: Signed Community Living Instructor: Maude Fitzgerald RN (Registered Nurse) Pt has [...] Case Management by VANDANA Godwin at 02/17/17 0781 Author: VANDANA Godwin Service: (none) Author Type: Peanut Salter Filed: 02/17/171107 Date of Service: 02/17/171105 Status: Signed Community Living Instructor: VANDANA Godwin (Peanut Salter) 02/17/17 1100 Discharge Planning Evaluation Admitting Diagnosis [...] reason he was admitted, pt lives in [place], [place] with spouse and 2 sons, pt is indpt with adls, iadls, no dme, temp dialysis cathet er placed - pt goes to [facility] - sister transports [...] 02/17/171923 Date of Service: 02/17/17820 Status: Signed Community Living Instructor: Jose Paz MD (Physician) [facility] Service: Hospitalist Progress Note Carol Potter 51 y.o. [id number] [id number]/[id number] male [facility] Day: LOS: [...] with Dr Timmons and eventually went to [facility] and he was then transferred to [facility] for management. His labs showed [...] lesion pictures were forwarded to Dr. Mitchell personnel security specialist from Dermatology services who agreed with steroid [...] disease) on dialysis ([facility]) Active Problems: Rash Diabetes mellitus with ESRD (end-stage renal disease) ([facility]) HTN (hypertension) Hyponatremia Eczema of both upper [...] 02/16/172122 Date of Service: 02/16/172120 Status: Signed Community Living Instructor: Sandrita Quiros RN (Registered Nurse) Hemodialysis Treatment [...] 02/16/171845 Date of Service: 02/16/171843 Status: Signed Community Living Instructor: Tracey Cantu RN (Registered Nurse) Pt had unsuccessful IJ placement. Femoral placement successful. Pt currently receiving dial ysis and VS stable. PICC nurse came and placed a PIV in left arm. [facility] Tracey Cantu RN Jose Amador MD - 02/16/2017 9:25 AM PDTFormatting of this note might be different from t barbie original. Progress Notes by Jose Paz MD at 02/16/17 0972 Author: Jose Paz MD Service: Hospitalist Author Type: Physician Filed: 02/16/17 3507 Date of Service: 02/16/17 0971 Status: Signed Community Living Instructor: Jose Paz MD (Physician) [facility] Service: Hospitalist Progress Note Carol Potter 51 y.o. [phone] 6626/[id number] anali CAODANIELA [facility] Day: LOS: 0 days SUBJECTIVE Patient [...] with Dr Timmons and eventually went to [facility] and he was then transferred to [facility] for management. His labs showed [...] QTC Calculation (Bezet) 488 ms Calculated P [place] 47 degrees Calculated R [place] 12 degrees Calculated T [place] 70 degrees Diagnosis Sinus rhythm with 1st [...] by MUSE READ ONLY, -COMPUTER ([id number]), editor at large ANA M NAVARRO ([id number]) on 02/16/2017 5:51 [...] QTC Calculation (Bezet) 516 ms Calculated P [place] 59 degrees Calculated R [place] 24 degrees Calculated T [place] 73 degrees Diagnosis Sinus rhythm with 1st [...] Range COLOR UA STRAW CLARITY CLEAR Specific [place], UA 1.012 1.002 - 1.030 LEUKOCYTE ESTERASE [...] 0659 Date of Service: 02/16/17656 Status: Signed Community Living Instructor: Marc Chang RN (Registered Nurse) Critical lab value, CO2-12 received from TC. Called to Makenna Velasco RN with read back. Ramón Chang RN onver quique Transaction, Provider Unknown - 02/16/2017 5:29 AM PDT Progress Notes by Xavier Toro RPH at 02/16/17528 Author: Xavier Toro RPH Service: Pharmacy Author Type: Pharmacist Filed: 02/16/17528 Date of Service: 02/16/17528 Status: Signed Community Living Instructor: Xavier Toro RPH (Pharmacist) Note ccl 6.1ml/min ESRD meds reviewed pepcid to daily consider alternate pharmacy will follow [facility] 0528 docume nted in this [...] Fingerstick | performed at [facility] | | LAB | | | | [address] [facility];[place] | | | | | | [address] | | | | + + [...] Fingerstick | performed at [facility];[address] | | LAB | | | | [address];[place], [place] | | | | | | [address] | | | | + + + [...] Fingerstick | performed at [facility] | | LAB | | | | [address];[place], [place] | | | | | | [address] [...] [address], | | | | | | [place] [address] | | | | + + + [...] POC | performed at [facility];[address] | | LAB | | | | [address] [place] | | | | | | [address] | | | | + + + [...] Fingerstick | performed at [facility];[address] | | LAB | | | | [address] [place] | | | | | | [address] | | | | + + + [...] Fingerstick | performed at [facility];[address] | | LAB | | | | [address];[place], [place] | | | | | | [address] | | | | + + + [...] Fingerstick | performed at [facility];[address] | | LAB | | | | [address];[place], [place] | | | | | | [address] | | | | + + + [...] Right brachiocephalic/subclavian venous | | | angioplasty PLASTER FORM MAKER: Jimenez Garnica MD, PhD, RPVI | | [...] the SVC. An 8 | | | Kuwaiti sheath was placed and a central venogram was performed which | | | demonstrated a brachiocephalicA/SVC confluence focal stenosis. Using | | | multiple obliquities, the catheter and wire were successfully passed | | | beyond the stent into the inferior vena cava. Patient was heparinized | | | An 10 Kuwaiti sheath was placed. A wire and catheter [...] and a small incision was made. A 14.5-Kuwaiti Palindrome 23 | | | cm tip [...] venogram5. | | Right brachiocephalic/subclavian venous angioplasty PLASTER FORM MAKER: Jimenez Garnica MD, | | PhD, RPVI [...] not pass into the SVC. An 8 Kuwaiti sheath was | | placed and a central venogram was performed which demonstrated a brachiocephalicA/SVC | | confluence focal stenosis. Using multiple obliquities, the catheter and wire were | | successfully passed beyond the stent into the inferior vena cava. Patient was | | heparinized An 10 Kuwaiti sheath was placed. A wire and catheter [...] and a small incision was made. A 14.5-Kuwaiti Palindrome 23 cm tip to cuff | [...] Right brachiocephalic/subclavian venous | | | angioplasty PLASTER FORM MAKER: Jimenez Garnica MD, PhD, RPVI | | [...] the SVC. An 8 | | | Kuwaiti sheath was placed and a central venogram was performed which | | | demonstrated a brachiocephalicA/SVC confluence focal stenosis. Using | | | multiple obliquities, the catheter and wire were successfully passed | | | beyond the stent into the inferior vena cava. Patient was heparinized | | | An 10 Kuwaiti sheath was placed. A wire and catheter [...] and a small incision was made. A 14.5-Kuwaiti Palindrome 23 | | | cm tip [...] venogram5. | | Right brachiocephalic/subclavian venous angioplasty PLASTER FORM MAKER: Jimenez Garnica MD, | | PhD, RPVI [...] not pass into the SVC. An 8 Kuwaiti sheath was | | placed and a central venogram was performed which demonstrated a brachiocephalicA/SVC | | confluence focal stenosis. Using multiple obliquities, the catheter and wire were | | successfully passed beyond the stent into the inferior vena cava. Patient was | | heparinized An 10 Kuwaiti sheath was placed. A wire and catheter [...] and a small incision was made. A 14.5-Kuwaiti Palindrome 23 cm tip to cuff | [...] Fingerstick | performed at [facility] | | LAB | | | | [address] [place] | | | | | | [address] | | | | + + + [...] | | | | | | at [facility], [address] | | | | | | [address]anna [address], | | | | | | [place] [address] | | | | + + + [...] Fingerstick | performed at [facility];[address] | | LAB | | | | [address];[place], [place] | | | | | | [address] | | | | + + + [...] Fingerstick | performed at [facility];[address] | | LAB | | | | [address];[place] | | | | | | [address] | | | | + + + [...] Fingerstick | performed at [facility];[address] | | LAB | | | | [address];[place] | | | | | | [address] | | | | + + + [...] Fingerstick | performed at [facility];[address] | | LAB | | | | [address];[place] | | | | | | [address] | | | | + + + [...] EXTERNAL | | | | performed at [facility], [address] | | LAB | | | | [place], | | | | | | [place] [address] | | | | + + + [...] | | | | | | at [facility], [address] | | | | | | [employer], | | | | | | [place] [address] | | | | | |Testing performed at [facility], [address] [facility], [place] [address] | | | | | | | [...] EXTERNAL | | | | performed at [facility], [address] | | LAB | | | | [place], | | | | | | [place] [address] | | | | + + + [...] + + | Hemoglobin | 5.5Comment: The Mauritanian | 4.0 - 6.0 % | EXTERNAL [...] | | | | | performed at [facility], [address] | | | | | | [place], | | | | | | [place] [address] | | | | + + + [...] | | | | | | at [facility], [address] | | | | | | [facility], | | | | | | [place] [address] | | | | + + + [...] Fingerstick | performed at [facility];[address] | | LAB | | | | [address];[place] | | | | | | [address] | | | | + + + [...] Fingerstick | performed at [facility] | | LAB | | | | [place] [place] | | | | | | [address] | | | | + + + [...] | | | at [facility];[address] [place] [address] | | | | | | [facility];[place] [address] | | | | + + + [...] [place] | | | | | | [address] | | | | + + + [...] | | | | | | at [facility], [address] | | | | | | [place], | | | | | | [place] [address] | | | | + + + [...] Fingerstick | performed at [facility];[address] | | LAB | | | | [address] [place] | | | | | | [address] | | | | + + + [...] | | LAB | | | | [facility], [address] | | | | | | [place] | | | | | | [address] | | | | + + + [...] - 1.030 | EXTERNAL | | | [place] | | | LAB | | + [...] | | | Urine | performed at [facility], [address] | | LAB | | | | [place], | | | | | | [place] [address] | | | | + + + [...] Fingerstick | performed at [facility];[address] | | LAB | | | | [place] [place] | | | | | | [address] | | | | + + + [...] LAB | | | | performed at [facility], [address] | | | | | | [place], | | | | | | [place] [address] | | | | | | | [...] EXTERNAL | | | | performed at [facility], [address] | | LAB | | | | [place], | | | | | | [place] [address] | | | | + + + [...] EXTERNAL | | | | performed at [facility], [address] | | LAB | | | | [place], | | | | | | [place] [address] | | | | + + + [...] | | | Direct | performed at [facility], [address] | | LAB | | | | [place], | | | | | | [place] [address] | | | | + + + [...] LAB | | | | @ [phone] [place] | | | | | |LUIS CARLOS Rose 6RP @ [phone] [place] | | | | | | | [...] | | | | | | at [facility], [address] | | | | | | [place], | | | | | | [place] [address] | | | | + + + [...] [facility];[address] | mmol/L | LAB | | | | [address];[place], [place] | | | | | | [address] | | | | + + + [...] LAB | | | | @ [phone] [place] | | | | | |MARC Burgess PCC @ [phone] [place] | | | | | | | [...] [place], | | | | | | [place] [address] | | | | + + + [...] | | | PCRAbnormal Testing performed at [facility];[address] [place] [address];[place] [address] | | + + + + +---------+ [...] Fingerstick | performed at [facility];[address] | | LAB | | | | [address];[place], [place] | | | | | | [address] | | | | + + + [...] | | | | [facility];[address] [facility] | | | | | | Blvd;[place] [address] | | | | + + + [...] [facility];[address] | mmol/L | LAB | | | | [place] | | | | | | [address] | | | | + + + [...] [facility];[address] | | LAB | | | | [address];[place], [place] | | | | | | [address] | | | | + + + [...] [facility];[address] | | LAB | | | | [address];[place] | | | | | | [address] | | | | + + + [...]
--- OUTSIDE RECORDS SUMMARY | ~2019-05-20 | XMS | Encounter Summary ---
Demographics + + + | Address | [address] | | | [place] [address] | + + + | Home Phone [...] Team Providers + +------+ + | Care Motion Picture Set Up Worker Name | Role | Phone | + +------+ + PCP | Unavailable | + +------+ + Encounter Details +--------+ + + + + | Date | Type | Department | Care Team | Description | +--------+ + + + + | 11/12/ | Orders Only | [facility] | Conversion | | | 2018 | | NEPHROLOGY [place] | Transaction, | | | | | [address] | Provider Unknown | | | | | [address] [place], [place] | | | | | | [address] | (Fax) | | | | | [phone] | | | +--------+ + + + [...]
--- OUTSIDE RECORDS SUMMARY | ~2019-05-20 | XMS | Encounter Summary ---
Demographics + + + | Address | [address] | | | [place] [address] | + + + | Home Phone [...] | [facility] | | | and [place] | + [...] Providers + +------+ + | Care Sales Agent [employer] Name | Role | Phone | + +------+ + PCP | Unavailable | + +------+ + Encounter Details +--------+ + + + + | Date | Type | Department | Care Team | Description | +--------+ + + + + | 09/07/ | Hospital | [facility] | Artis Dean MD | ESRD (end stage | | 2017 - | Encounter | [facility] | [address] [place] | renal disease) on | | | | CARE FLOOR 4 888 | [address] [place], [place] | dialysis ([facility]); S/P | | 09/15/ | | [address] | [address] | pericardiocentesis; | | 2017 | | [place], [place] | | Hyperkalemia; | | | | [address] | | End-stage renal | | | | [phone] | | disease (ESRD) | | | [...] Filed: 09/15/16 1513 Date of Service: 09/15/16 1509 Status: Attested E Commerce Solution Architect: ESPERANZA Ku (Resident-Y1) Cosigner: Simone Roblero MD at 09/17/16 1 338 Attestation signed by Simone Roblero MD at 09/17/16 2747 I have seen and examined the patient and agree with residents note [facility] Service: Hospitalist Discharge [...] II, and hypothyroidism who pres ented to [facility] with hyperkalemia 2/2 missing dialysis appointments [...] on file. Follow [place]: [place] [address] [place] [address] Go on 09/18/2016 Hospital Follow Up at 2:15pm Guided Patient Services Guided Patient Services [employer]- HARDIK Ayala [phone] Mon-Fri 7:30 AM 4:00 PM Call for any questions or concerns after your discharge home, or for help making follow up appointments. Beny Posada MD [address] [place] [address] In 2 weeks for hospital follow up [...] Note by Ophelia See RN at 09/15/16 9199 Author: Ophelia See RN Service: (none) Author Type: Registered Nurse Filed: 09/15/16 1531 Date of Service: 09/15/16 1516 Status: Signed E Commerce Solution Architect: Ophelia See RN (Registered Nurse) Patient leaving [...] Service: Nephrology Author Type: Physician Filed: 09/21/16 2927 Date of Service: 09/15/16 1110 Status: Signed E Commerce Solution Architect: Juana Christianson MD (Physician) [facility] Service: Nephrology Progress Note Hospital Problem [...] torsemide 50 mg Oral Daily vitamin B zggwscv-N-kvedw acid 1 tablet Oral Daily dextrose P.E. [...] with his AV fistula Recommendations: No acute CALLISTHENICS INSTRUCTOR indication Remove CVC Protein suppl stressed I discussed with the primary team the case at the time of this encounter. JUANA CHRISTIANSON MD 09/15/2016 onversion Transa ction, Provider Unknown - 09/15/2016 4:18 AM PDT Nurse Progress Note by Yessica Bell RN at 09/15/16417 Author: Yessica Bell RN Service: (none) Author Type: Registered Nurse Filed: 09/15/16420 Date of Service: 09/15/16417 Status: Signed E Commerce Solution Architect: Yessica Bell RN (Registered Nurse) Patient came [...] 09/14/161855 Date of Service: 09/14/161852 Status: Signed E Commerce Solution Architect: Ophelia See RN (Registered Nurse) Patient has [...] 09/14/161701 Date of Service: 09/14/161700 Status: Signed E Commerce Solution Architect: Marge Lewis RD, JAYA (Registered Dietitian) 09/14/161649 Subjective Timepoint Admit Pt c/o Pt triggered for stay secondary to LOS. Admitted secondary to swollen fistula, no H D for five days. New fistula placed, pt sleeping and undergoing HD at time of visit. Did n ot awaken patient. Reported by RN Diet Experience Previous Diet / Nutrition Education / Counseling Pt receives HD in [facility], followed by r juan francisco dietitian there. [...] 09/14/161699 Date of Service: 09/14/161658 Status: Signed E Commerce Solution Architect: Lola Farfan RN (Registered Nurse) Discharge Planning: [...] 09/14/162050 Date of Service: 09/14/16847 Status: Signed E Commerce Solution Architect: Juana Christianson MD (Physician) [facility] Service: Nephrology Progress Note Hospital Problem [...] torsemide 50 mg Oral Daily vitamin B bmbipdi-E-nxsjm acid 1 tablet Oral Daily dextrose P.E. [...] STATUS: Relative euvolemia Recommendations: 1. He needs CALLISTHENICS INSTRUCTOR today 2. No IVF need 3. Advise [...] Service: Hospitalist Author Type: Resident-Y1 Filed: 09/14/16 7176 Date of Service: 09/14/16626 Status: Attested E Commerce Solution Architect: Douglas Barrow MD-R1 (Resident-Y1) Cosigner: Simone Roblero MD at 09/15/16 1 424 Attestation signed by Simone Roblero MD at 09/15/16 7946 I have seen and examined the patient [...] occlusion of the SVC, which did not handle turner to be the case. Patient underwen [...] DM II, and hypothyroidism who presented to [facility] with hyperkalemia 2/2 missing dialysis appointments [...] torsemide 50 mg Oral Daily vitamin B cxucsfi-C-qexat acid 1 tablet Oral Daily dextrose PRN: [...] (none) Author Type: Registered Nurse Filed: 09/13/16 1070 Date of Service: 09/13/162326 Status: Signed E Commerce Solution Architect: Ksenia Lopez RN (Registered Nurse) Both peripheral [...] 09/13/161929 Date of Service: 09/13/161753 Status: Addendum E Commerce Solution Architect: Flory Razo MD (Physician) Related Notes: Original Note by Flory Razo MD (Physician) filed at 09/13/161803 [facility] Service: Cardiology Progress Note Hospital Day: [...] torsemide 50 mg Oral Daily vitamin B gapkxks-A-eddvp acid 1 tablet Oral Daily Continuous Infusions [...] Notes by Cosmo Soria MD at 09/13/16 3196 Author: Cosmo Soria MD Service: Nephrology Author Type: Physician Filed: 09/13/16 1609 Date of Service: 09/13/16 6484 Status: Signed E Commerce Solution Architect: Cosmo Soria MD (Physician) 4461/4461-1 LOS: 6 [...] is dialyzed Saturday an d Saturday at [place] dialysis unit using right UE AVF (Dr. [...] was completed later after rounds. Dictation software, Deltagen, was used which may contain error for [...] torsemide 50 mg Oral Daily vitamin B uuyzttx-X-gpxkj acid [address] Christianson will assume nephrology service as of 8 am tomorrow. onversion Transactio n, Provider Unknown - 09/13/2016 1:43 PM PDT Case Management by Lola Farfan RN at 09/13/16 1343 Author: Lola Farfan RN Service: (none) Author Type: Registered Nurse Filed: 09/13/16 1347 Date of Service: 09/13/16 134 Status: Signed E Commerce Solution Architect: Lloa Farfan RN (Registered Nurse) Discharge Planning: CM attended morning rounds with nursing staff, pt to d/c poss 09/15 home with spouse. CM sent FWW script to DME, FWW to be delivered to pt room 09/14. alvor Douglas sifuentes - 09/13/2016 6:35 AM PDTFormatting of this note might be different from the betina ginal. Progress Notes by Douglas Barrow MD-R1 at 09/13/16 0600 Author: Douglas Barrow MD-R1 Service: Hospitalist Author Type: Resident-Y1 Filed: 09/13/16 4226 Date of Service: 09/13/16 0635 Status: Attested E Commerce Solution Architect: Douglas Barrow MD-R1 (Resident-Y1) Cosigner: Simone Roblero MD at 09/13/16 1 337 Attestation signed by Simone Roblero MD at 09/13/16 9506 I have seen and examined the patient [...] occlusion of the SVC, which did not handle turner to be the case. Patient underwen [...] DM II, and hypothyroidism who presented to [facility] with hyperkalemia 2/2 missing dialysis appointments [...] torsemide 50 mg Oral Daily vitamin B fkiidzk-P-dvbgf acid 1 tablet Oral Daily PRN: acetaminophen [...] 09/13/16537 Date of Service: 09/13/16517 Status: Addendum E Commerce Solution Architect: Ofelia Morales RN (Registered Nurse) Related Notes: [...] Notes by Flory Razo MD at 09/12/16 0740 Author: Flory Razo MD Service: Cardiology Author Type: Physician Filed: 09/12/16 1632 Date of Service: 09/12/16 1530 Status: Signed E Commerce Solution Architect: Flory Razo MD (Physician) [facility] Service: Cardiology Progress Note Hospital Day: [...] torsemide 50 mg Oral Daily vitamin B jecxaga-X-tptgd acid 1 tablet Oral Daily Continuous Infusions [...] Service: Nephrology Author Type: Physician Filed: 09/12/16 6662 Date of Service: 09/12/16899 Status: Signed E Commerce Solution Architect: Cosmo Soria MD (Physician) 4461/4461-1 LOS: 5 [...] He is dialyzed Saturday an saturday at [place] dialysis unit using right UE AVF (Dr. [...] was completed later after rounds. Dictation software, Deltagen, was used which may contain error for [...] torsemide 50 mg Oral Daily vitamin B luljkpy-N-qrsoe acid 1 tablet Oral Daily Douglas Bess 0 09/12/2016 6:42 AM PDT Progress Notes by Douglas Barrow MD-R1 at 09/12/16 0642 Author: Douglas Barrow MD-R1 Service: Hospitalist Author Type: Resident-Y1 Filed: 09/12/16 1217 Date of Service: 09/12/16 0642 Status: Attested E Commerce Solution Architect: Douglas Barrow MD-R1 (Resident-Y1) Cosigner: Simone Roblero [...] DM II, and hypothyroidism who presented to [facility] with hyperkalemia 2/2 missing dialysis appointments [...] torsemide 50 mg Oral Daily vitamin B bfccosd-C-alnzu acid 1 tablet Oral Daily PRN: acetaminophen [...] Service: Nephrology Author Type: Physician Filed: 09/11/16 3947 Date of Service: 09/11/166 Status: Signed E Commerce Solution Architect: Cosmo Soria MD (Physician) 7106/7106-1 LOS: 4 [...] and had t o be replaced by dialysis tech. He has been wheezing which is improved [...] is dialyzed Saturday an d Saturday at [place] dialysis unit using right UE AVF (Dr. [...] Plan of care was discussed with Dr. Aninka SORIA MD 09/11/2016 Portions of my previous notes have been carried over for continuity of care. He was seen earlier in the day and charting was completed later after rounds. Dictation software, Deltagen, was used which may contain error for [...] torsemide 50 mg Oral Daily vitamin B wzhqogq-M-ersei acid 1 tablet Oral Daily onversion Transactio n, Provider Unknown - 09/11/2016 2:43 PM PDT Case Management by Deidre Westfall RN at 09/11/16 6947 Author: Deidre Westfall RN Service: (none) Author Type: Registered Nurse Filed: 09/11/16 9445 Date of Service: 09/11/168 Status: Addendum E Commerce Solution Architect: Deidre Westfall RN (Registered Nurse) Related Notes: Original Note by Deidre Westfall RN (Registered Nurse) filed at 09/11/16 144 6 Met with pt and spouse Shyanne re d/c planning. Pt states he would like a FWW. Will obtain sc ript and fax to [employer]. Shyanne asking about a phone card and meal vouchers. Shyanne states she already used up the Addepar ne card calling her kids in [place]. Informed Shyanne not sure how many phone cards they can get during stay, but stated family in [place] can call in to pt's room. Informed [...] Date of Service: 09/11/16 1210 Status: Signed E Commerce Solution Architect: Sharon Chapman RN (Registered Nurse) Contacted by [...] Date of Service: 09/11/16 1202 Status: Addendum E Commerce Solution Architect: Amber Freitas RN (Registered Nurse) Related Notes: Original Note by Amber Freitas RN (Registered Nurse) filed at 09/11/16 1811 Dressing removed on accident by patient when ambulating to bathroom, RN dressed with gauze and tegaderm, safety sitter contacted and will be to floor to inspect, clean and re-dress, pt complaining of increased pain to R arm where AVF is located, arm is swollen and warm to touc h, does not appear to have changed from previous assessment MD aware Amber Freitas RN alnohemi Douglas sifuentes Vance - 09/11/2016 6:35 AM PDTFormatting of this note might be different from the ebtina ginal. Progress Notes by DAMIÁN KuR1 at 09/11/16 0635 Author: DAMIÁN KuR1 Service: Hospitalist Author Type: Resident-Y1 Filed: 09/11/16 5445 Date of Service: 09/11/16 0635 Status: Attested E Commerce Solution Architect: DAMIÁN KuR1 (Resident-Y1) Cosigner: Simone Roblero MD at 09/12/16 1 309 Attestation signed by Simnoe Roblero MD at 09/12/16 1309 I have [...] DM II, and hypothyroidism who presented to [facility] with hyperkalemia 2/2 missing dialysis appointments [...] torsemide 50 mg Oral Daily vitamin B frgxgki-T-ciegj acid 1 tablet Oral Daily PRN: acetaminophen [...] 09/11/16620 Date of Service: 09/11/16619 Status: Signed E Commerce Solution Architect: Carmina Lepe RN (Registered Nurse) Pt VS stable throughout the shift. No acute changes noted. Pt NPO at midnight. Will continu e to monitor. Carmina Lepe RN onver quique Transaction, Provider Unknown - 09/10/2016 6:09 PM PDT Progress Notes by Camilo Samson RN at 09/10/161808 Author: Camilo Samson RN Service: (none) Author Type: Registered Nurse Filed: 09/10/161809 Date of Service: 09/10/161808 Status: Signed E Commerce Solution Architect: Camilo Samson RN (Registered Nurse) No acute changes. Camilo Samson RN Onelia Cuello ae, MD - 09/10/2016 4:56 PM PDTFormatting of this note might be different from the origin al. Progress Notes by Oskar Meyer MD at 09/10/16 1656 Author: Oskar Meyer MD Service: Vascular Surgery Author Type: Physician Filed: 09/10/16 1659 Date of Service: 09/10/16 1656 Status: Addendum E Commerce Solution Architect: Oskar Meyer MD (Physician) Related Notes: Original Note by Oskar Meyer MD (Physician) filed at 09/10/16 1658 [facility] Service: Vascular Surgery Progress Note S/p [...] Mary Loja CMA Service: (none) Author Type: Customer Service Attendant Filed: 09/10/16 1542 Date of Service: 09/10/16 1528 Status: Signed E Commerce Solution Architect: Mary Loja CMA (Customer Service Attendant) GPS- Patient enrolled and appt scheduled with PCP on 09/18 ustyn Douglas sifuentes - 09/10/2016 1:12 PM PDTFormatting of this note might be different from the betina dasia. Progress Notes by Douglas Barrow MD-R1 at 09/10/16 1312 Author: Douglas Barrow MD-R1 Service: Hospitalist Author Type: Resident-Y1 Filed: 09/10/16 1325 Date of Service: 09/10/16 1312 Status: Attested E Commerce Solution Architect: Douglas Barrow MD-R1 (Resident-Y1) Cosigner: Simone Roblero MD at 09/10/16 1 347 Attestation signed by Simone Roblero MD at 09/10/16 7258 I have seen and examined the patient [...] DM II, and hypothyroidism who presented to [facility] with hyperkalemia 2/2 missing dialysis appointments [...] torsemide 50 mg Oral Daily vitamin B gmkypop-N-twozj acid 1 tablet Oral Daily PRN: acetaminophen [...] 1241 Date of Service: 09/10/161236 Status: Signed E Commerce Solution Architect: Sharon Chapman RN (Registered Nurse) @1157 Accompanied [...] Date of Service: 09/10/16 1230 Status: Signed E Commerce Solution Architect: Paulyn Ungerecht, RN (Registered Nurse) @7488 Lock HD ports with heparin 1000units/ml after [...] Date of Service: 09/10/16 1114 Status: Signed E Commerce Solution Architect: Cosmo Soria MD (Physician) 7106/7106-1 LOS: 3 [...] is dialyzed Saturday an d Saturday at [place] dialysis unit using right UE AVF (Dr. [...] was completed later after rounds. Dictation software, Deltagen, was used which may contain error for [...] torsemide 50 mg Oral Daily vitamin B xhalbgk-Z-wdffz acid 1 tablet Oral Daily onversion Transactio n, Provider Unknown - 09/10/2016 9:51 AM PDT Nurse Progress Note by Yahaira Roth RN at 09/10/16950 Author: Yahaira Roth RN Service: (none) Author Type: Registered Nurse Filed: 09/10/16953 Date of Service: 09/10/16950 Status: Signed E Commerce Solution Architect: Yahaira Roth RN (Registered Nurse) Spoke to [...] 09/10/16820 Date of Service: 09/10/16819 Status: Signed E Commerce Solution Architect: Camilo Samson RN (Registered Nurse) AM meds held until dialysis complete. Camilo Samson RN onver quique Transaction, Provider Unknown - 09/10/2016 4:13 AM PDT Nurse Progress Note by Carmina Lepe RN at 09/10/16412 Author: Carmina Lepe RN Service: (none) Author Type: Registered Nurse Filed: 09/10/168 Date of Service: 09/10/16412 Status: Signed E Commerce Solution Architect: Carmina Lepe RN (Registered Nurse) Pt VS [...] 0758 Date of Service: 09/09/161941 Status: Signed E Commerce Solution Architect: Cosmo Soria MD (Physician) 7106/7106-1 LOS: 2 [...] is dialyzed Saturday an d Saturday at [place] dialysis unit using right UE AVF (Dr. [...] was completed later after rounds. Dictation software, Deltagen, was used which may contain error for [...] chloride 10 mL Intravenous Q8H vitamin B qfxhgtp-O-idlyi acid 1 tablet Oral Daily onversion Transactio n, Provider Unknown - 09/09/2016 6:02 PM PDT Nurse Progress Note by Angeli Espinal RN at 09/09/161801 Author: Angeli Espinal RN Service: (none) Author Type: Registered Nurse Filed: 09/09/161804 Date of Service: 03/19/17 1802 Status: Signed E Commerce Solution Architect: Angeli Espinal RN (Registered Nurse) Pt had new dialysis line placed today in R groin. It appears to have some drainage around t he site. Called safety sitter and was advised as long as not [...] Notes by Simone Roblero MD at 09/09/16 5656 Author: Simone Roblero MD Service: Hospitalist Author Type: Physician Filed: 09/09/16 1500 Date of Service: 09/09/16 7756 Status: Signed E Commerce Solution Architect: Simone Roblero MD (Physician) [facility] Service: Hospitalist Progress Note Hospital Day: [...] chloride 10 mL Intravenous Q8H vitamin B yofdldm-W-gspgf acid 1 tablet Oral Daily Continuous Infusions [...] hours. No results for input(s): PHART, PO2ART, FUG0FIJ, G1XXTHUK, BEART in the last 168 hours. Recent Labs Lab 09/07/162022 INR 0.9 No results for input(s): TSH, T3FREE, FREET4 in the last 168 hours. Recent Labs Lab 09/08/16 0534 CKTOTAL 177 Radiology Xr Chest 1 View 09/08/2016 Normal single view chest. RADIA Electronically signed by Kevin Ely MD on Sep 08 2016 1:06AM Referring Provider Line: [phone] ID: [id number] PROBLEM LIST Principal Problem: Acute [...] 09/09/16554 Date of Service: 09/09/16554 Status: Signed E Commerce Solution Architect: Elsie Dickinson RN (Registered Nurse) No acute change in Pt condition from previous shift assessment. Elsie Dickinson RN Cosmo Lang MD - 09/08/2016 8:00 PM PDTFormatting of this note might be different from the or iginal. Progress Notes by Cosmo Soria MD at 09/08/161999 Author: Cosmo Soria MD Service: Nephrology Author Type: Physician Filed: 09/09/16 0906 Date of Service: 09/08/161999 Status: Signed E Commerce Solution Architect: Cosmo Soria MD (Physician) 7106/7106-1 LOS: 1 [...] is dialyzed Saturday an d Saturday at [place] dialysis unit using right UE AVF (Dr. [...] was completed later after rounds. Dictation software, Deltagen, was used which may contain error for [...] chloride 10 mL Intravenous Q8H vitamin B chzzrvz-C-zrssm acid 1 tablet Oral Daily onversion Transactio n, Provider Unknown - 09/08/2016 5:31 PM PDT Nurse Progress Note by Angeli Espinal RN at 09/08/16 1731 Author: Angeli Espinal RN Service: (none) Author Type: Registered Nurse Filed: 09/08/16 1900 Date of Service: 09/08/16 1731 Status: Addendum E Commerce Solution Architect: Angeli Espinal RN (Registered Nurse) Related Notes: [...] Date of Service: 09/08/16 1451 Status: Signed E Commerce Solution Architect: Simone Roblero MD (Physician) Related Notes: Original Note by Simone Roblero MD (Physician) filed at 09/08/16 1457 [facility] Service: Hospitalist Progress Note Hospital Day: [...] chloride 10 mL Intravenous Q8H vitamin B pfaprbg-P-kerxm acid 1 tablet Oral Daily Continuous Infusions [...] hours. No results for input(s): PHART, PO2ART, NWG8BYK, W6OOURNC, BEART in the last 168 hours. Recent Labs Lab 09/07/162022 INR 0.9 No results for input(s): TSH, T3FREE, FREET4 in the last 168 hours. Recent Labs Lab 09/08/16 0534 CKTOTAL 177 Radiology Xr Chest 1 View 09/08/2016 Normal single view chest. RADIA Electronically signed by Kevin Ely MD on Sep 08 2016 1:06AM Referring Provider Line: [phone] ID: [id number] PROBLEM LIST Principal Problem: Acute [...] Case Management by VANDANA Olivia at 09/08/16 9382 Author: VANDANA Olivia Service: (none) Author Type: Research Executive Filed: 09/08/16 2796 Date of Service: 09/08/168 Status: Signed E Commerce Solution Architect: VANDANA Olivia (Research Executive) 09/08/16 0441 Discharge Planning Evaluation Admitting Diagnosis ESRD Readmission No Living Arrangements Spouse/significant other (Shyanne Potter) Support Systems Spouse/significant other;Family members (Momo Potter, Son: [phone]) Type of Residence Private residence Independent with ADL's Yes Independent with Mobility Yes Home Care Services No Caregiver after Discharge Yes Caregiver Name Shyanne Potter Relationship to Patient Spouse Phone number No Phone Mental Status Oriented Power of Disability Aide No Anticipated Discharge Plan Post Acute Care [...] Pt is ESRD and has dialysis at [facility] in [facility]. His Sister transports him to dialysis. Pt denied any discharge n eeds. Pt's Spouse stated that they are very low income and that they used all of their money gett ing to the hospital. She requested a meal voucher as she does not have money to purchase fo od and they live in [facility]. CM provided a sack lunch voucher but [...] concerns: No concerns Medication coverage/concerns: No concerns [facility] Bedside Delivery: Community resources utilized / [...] 09/08/1629 Date of Service: 09/08/16724 Status: Signed E Commerce Solution Architect: Elsie Dickinson RN (Registered Nurse) Pt received hemodialysis upon admission to the floor, 2 liters off. Elsie Dickinson RN onver quique Transaction, Provider Unknown - 09/08/2016 3:24 AM PDT Pharmacy Note by Carmina Lara RPH at 09/08/16323 Author: Carmina Lara RPH Service: Pharmacy Author Type: Pharmacist Filed: 09/08/16323 Date of Service: 09/08/16323 Status: Signed E Commerce Solution Architect: Carmina Lara RPH (Pharmacist) Clinical Pharmacy Note: [...] | | | Fingerstick | performed at [facility];[address] | | LAB | | | | [address];[place], [place] | | | | | | [id number] [...] | | | Fingerstick | performed at [facility];[address] | | LAB | | | | [address];[place] | | | | | | [address] | | | | + + + [...] EXTERNAL | | | | performed at [facility], [address] | K/uL | LAB | | | | [address], | | | | | | [place] [address] | | | | + + + + + + | RED CELL | 2.86 (L)Comment: Testing | 4.20 - 5.70 | EXTERNAL | | | COUNT | performed at [facility], [address] | M/uL | LAB | | | | [address], | | | | | | [place] [address] | | | | + + + + + + | Hgb | 8.7 (L)Comment: Testing | 13.2 - 17.0 | EXTERNAL | | | | performed at [facility], [address] | g/dL | LAB | | | | [address], | | | | | | [place] [address] | | | | + + + + + + | Hematocrit, | 25.9 (L)Comment: Testing | 39.0 - 50.0 % | EXTERNAL | | | POC | performed at [facility], [address] | | LAB | | | | [address], | | | | | | [place] [address] | | | | + + + + + + | MCV | 90.4Comment: Testing | 80.0 - 100.0 fl | EXTERNAL | | | | performed at [facility], [address] | | LAB [...] | | | | | [place] [address] | | | | + + + + + + | MCHC | 33.7Comment: Testing | 32.0 - 35.5 | EXTERNAL | | | | performed at [facility], [address] | g/dL | LAB | | | | [address], | | | | | | [place] [address] | | | | + + + + + + | RDW-CV | 54.3 (H)Comment: Testing | 37 - 53 fl | EXTERNAL | | | | performed at [facility], [address] | | LAB | | | | [address], | | | | | | [place] [address] | | | | + + + + + + | Platelet | 279Comment: Testing | 150 - 400 K/uL | EXTERNAL | | | Count | performed at [facility], [address] | | LAB | | | Plasma | [address], | | | | | | [place] [address] | | | | + + + + + + | MPV | 7.1Comment: Testing | fl | EXTERNAL | | | | performed at [facility], [address] | | LAB | | | | [address], | | | | | | [place] [address] | | | | + + + + + + | Differentia | AUTOMATEDComment: | | EXTERNAL | | | l Type | Testing performed at | | LAB | | | | [facility], [address] | | | | | | [place] | | | | | | [address] | | | | + + + + + + | % Segmented | 73.44Comment: Testing | % | EXTERNAL | | | | performed at [facility], [address] | | LAB | | | Neutrophils | [address], | | | | | | [place] [address] | | | | + + + + + + | % | 8.76Comment: Testing | % | EXTERNAL | | | Lymphocytes | performed at [facility], [address] | | LAB | | | | [address], | | | | | | [place] [address] | | | | + + + + + + | % Monocytes | 13.23Comment: Testing | % | EXTERNAL | | | | performed at [facility], [address] | | LAB | | | | [address], | | | | | | [place] [address] | | | | + + + + + + | % | 3.62Comment: Testing | % | EXTERNAL | | | Eosinophils | performed at [facility], [address] | | LAB | | | | [address], | | | | | | [place] [address] | | | | + + + + + + | % Basophils | 0.95Comment: Testing | % | EXTERNAL | | | | performed at [facility], [address] | | LAB | | | | [address], | | | | | | [place] [address] | | | | + + + + + + | Absolute | 7.90 (H)Comment: Testing | 1.90 - 7.40 | EXTERNAL | | | Segmented | performed at [facility], [address] | [address] | LAB | | | Neutrophils | [address], | | | | | | [place] [address] | | | | + + + + + + | Absolute | 0.94 (L)Comment: Testing | 1.00 - 3.90 | EXTERNAL | | | Lymphocytes | performed at [facility], [address] | [address] | LAB | | | | [address], | | | | | | [place] [address] | | | | + + + + + + | Absolute | 1.42 (H)Comment: Testing | 0.00 - 0.80 | EXTERNAL | | | Monocytes | performed at [facility], [address] | [address] | LAB | | | | [address], | | | | | | [place] [address] | | | | + + + + + + | Absolute | 0.39Comment: Testing | 0.00 - 0.50 | EXTERNAL | | | Eosinophils | performed at [facility], [address] | K[address] | LAB | | | | [address], | | | | | | [place] [address] | | | | + + + + + + | Absolute | 0.10Comment: Testing | 0.00 - 0.10 | EXTERNAL | | | Basophils | performed at [facility], [address] | [address] | LAB | | | | [address], | | | | | | [place] [address] | | | | + + + [...] EXTERNAL | | | | performed at [facility], [address] | | LAB | | | | [address], | | | | | | [place] [address] | | | | + + + [...] EXTERNAL | | | | performed at [facility], [address] | | LAB | | | | [address], | | | | | | [place] [address] | | | | + + [...] EXTERNAL | | | | performed at [facility], [address] | | LAB | | | | [address], | | | | | | [place] [address] | | | | + + + [...] EXTERNAL | | | | performed at [facility], [address] | mmol/L | LAB | | | | [address], | | | | | | [place] [address] | | | | + + + + + + | K | 4.6Comment: Testing | 3.5 - 4.9 | EXTERNAL | | | | performed at [facility], [address] | mmol/L | LAB | | | | [address], | | | | | | [place] [address] | | | | + + + + + + | Cl | 97 (L)Comment: Testing | 99 - 109 mmol/L | EXTERNAL | | | | performed at [facility], [address] | | LAB | | | | [address], | | | | | | [place] [address] | | | | + + + + + + | CO2 | 28Comment: Testing | 23 - 32 mmol/L | EXTERNAL | | | | performed at [facility], [address] | | LAB | | | | [address], | | | | | | [place] [address] | | | | + + + [...] | | | | | [place] [address] | | | | + + + + + + | BUN | 38 (H)Comment: Testing | 8 - 25 mg/dL | EXTERNAL | | | | performed at [facility], [address] | | LAB | | | | [address], | | | | | | [place] [address] | | | | + + + + + + | Creatinine | 6.0 (H)Comment: Testing | 0.70 - 1.30 | EXTERNAL | | | | performed at [facility], [address] | mg/dL | LAB | | | | [address], | | | | | | [place] [address] | | | | + + + + + + | BUN/Creatin | 6Comment: Testing | | EXTERNAL | | | ine Ratio | performed at [facility], [address] | | LAB | | | | [address], | | | | | | [place] [address] | | | | + + + + + + | Calcium | 8.4 (L)Comment: Testing | 8.5 - 10.5 | EXTERNAL | | | | performed at [facility], [address] | mg/dL | LAB | | | | [address], | | | | | | [place] [address] | | | | + + + [...] [address], | | | | | | [place] [address] | | | | + + + [...] | | | Fingerstick | performed at [facility];[address] | | LAB | | | | [address];[place], [place] | | | | | | [address] | | | | + + + [...] | | | Fingerstick | performed at [facility];[address] | | LAB | | | | [address];[place], [place] | | | | | | [address] | | | | + + + [...] | | | Fingerstick | performed at [facility];[address] | | LAB | | | | [address];[place] | | | | | | [address] | | | | + + + [...] Pleural effusion present. | | | MEASUREMENTS Interim Controller: SHIRA Authenticated by: | | | Flory [...] present.Pericardium: Pleural effusion present. | | MEASUREMENTS Interim Controller: SHIRAAuthenticated by: Flory Razo [facility] [place] | | Date/Time: 09-14-2016 15:01:49 IMPRESSION: 1. [...] | |MEASUREMENTS | | | | | |Interim Controller: SHIRA | |Authenticated by: Flory Razo MD [...] EXTERNAL | | | | performed at [facility], [address] | K/uL | LAB | | | | [address], | | | | | | [place] [address] | | | | + + + + + + | RED CELL | 2.87 (L)Comment: Testing | 4.20 - 5.70 | EXTERNAL | | | COUNT | performed at [facility], [address] | [address] | LAB | | | | [address], | | | | | | [place] [address] | | | | + + + + + + | Hgb | 8.6 (L)Comment: Testing | 13.2 - 17.0 | EXTERNAL | | | | performed at [facility], [address] | g/dL | LAB | | | | [address], | | | | | | [place] [address] | | | | + + + + + + | Hematocrit, | 25.8 (L)Comment: Testing | 39.0 - 50.0 % | EXTERNAL | | | POC | performed at [facility], [address] | | LAB | | | | [address], | | | | | | [place] [address] | | | | + + + + + + | MCV | 90.0Comment: Testing | 80.0 - 100.0 fl | EXTERNAL | | | | performed at [facility], [address] | | LAB | | | | [address], | | | | | | [place] [address] | | | | + + + + + + | MCH | 29.9Comment: Testing | 27.0 - 34.0 pg | EXTERNAL | | | | performed at [facility], [address] | | LAB | | | | [address], | | | | | | [place] [address] | | | | + + + + + + | MCHC | 33.3Comment: Testing | 32.0 - 35.5 | EXTERNAL | | | | performed at [facility], [address] | g/dL | LAB | | | | [address], | | | | | | [place] [address] | | | | + + + + + + | RDW-CV | 52.9Comment: Testing | 37 - 53 fl | EXTERNAL | | | | performed at [facility], [address] | | LAB | | | | [address], | | | | | | [place] [address] | | | | + + + + + + | Platelet | 245Comment: Testing | 150 - 400 K/uL | EXTERNAL | | | Count | performed at [facility], [address] | | LAB | | | Plasma | [address], | | | | | | [place] [address] | | | | + + + + + + | MPV | 7.1Comment: Testing | fl | EXTERNAL | | | | performed at [facility], [address] | | LAB | | | | [address], | | | | | | [place] [address] | | | | + + + + + + | Differentia | AUTOMATEDComment: | | EXTERNAL | | | l Type | Testing performed at | | LAB | | | | [facility], [address] | | | | | | [place] | | | | | | [address] | | | | + + + + + + | % Segmented | 73.70Comment: Testing | % | EXTERNAL | | | | performed at [facility], [address] | | LAB | | | Neutrophils | [address], | | | | | | [place] [address] | | | | + + + + + + | % | 7.56Comment: Testing | % | EXTERNAL | | | Lymphocytes | performed at [facility], [address] | | LAB | | | | [address], | | | | | | [place] [address] | | | | + + + + + + | % Monocytes | 14.10Comment: Testing | % | EXTERNAL | | | | performed at [facility], [address] | | LAB | | | | [address], | | | | | | [place] [address] | | | | + + + + + + | % | 4.10Comment: Testing | % | EXTERNAL | | | Eosinophils | performed at [facility], [address] | | LAB | | | | [address], | | | | | | [place] [address] | | | | + + + + + + | % Basophils | 0.54Comment: Testing | % | EXTERNAL | | | | performed at [facility], [address] | | LAB | | | | [address], | | | | | | [place] [address] | | | | + + + + + + | Absolute | 7.26Comment: Testing | 1.90 - 7.40 | EXTERNAL | | | Segmented | performed at [facility], [address] | K/u[address] | LAB | | | Neutrophils | [address], | | | | | | [place] [address] | | | | + + + + + + | Absolute | 0.74 (L)Comment: Testing | 1.00 - 3.90 | EXTERNAL | | | Lymphocytes | performed at [facility], [address] | [address] | LAB | | | | [address], | | | | | | [place] [address] | | | | + + + + + + | Absolute | 1.39 (H)Comment: Testing | 0.00 - 0.80 | EXTERNAL | | | Monocytes | performed at [facility], [address] | [address] | LAB | | | | [address], | | | | | | [place] [address] | | | | + + + + + + | Absolute | 0.40Comment: Testing | 0.00 - 0.50 | EXTERNAL | | | Eosinophils | performed at [facility], [address] | K/uL | LAB | | | | [address], | | | | | | [place] [address] | | | | + + + + + + | Absolute | 0.05Comment: Testing | 0.00 - 0.10 | EXTERNAL | | | Basophils | performed at [facility], [address] | [address] | LAB | | | | [address], | | | | | | [place] [address] | | | | + + + [...] | | | | | [place] [address] | | | | + + + [...] EXTERNAL | | | | performed at [facility], [address] | | LAB | | | | [address], | | | | | | [place] [address] | | | | + + + [...] EXTERNAL | | | | performed at [facility], [address] | | LAB | | | | [address], | | | | | | [place] [address] | | | | + + + [...] EXTERNAL | | | | performed at [facility], [address] | mmol/L | LAB | | | | [address], | | | | | | [place] [address] | | | | + + + + + + | K | 4.6Comment: Testing | 3.5 - 4.9 | EXTERNAL | | | | performed at [facility], [address] | mmol/L | LAB | | | | [address], | | | | | | [place] [address] | | | | + + + + + + | Cl | 92 (L)Comment: Testing | 99 - 109 mmol/L | EXTERNAL | | | | performed at [facility], [address] | | LAB | | | | [address], | | | | | | [place] [address] | | | | + + + + + + | CO2 | 26Comment: Testing | 23 - 32 mmol/L | EXTERNAL | | | | performed at [facility], [address] | | LAB | | | | [address], | | | | | | [place] [address] | | | | + + + + + + | Anion Gap | 16Comment: Testing | 5 - 20 mmol/L | EXTERNAL | | | | performed at [facility], [address] | | LAB | | | | [address], | | | | | | [place] [address] | | | | + + + + + + | Glucose, | 123 (H)Comment: Testing | 65 - 99 mg/dL | EXTERNAL | | | Fasting | performed at [facility], [address] | | LAB | | | | [address], | | | | | | [place] [address] | | | | + + + + + + | BUN | 58 (H)Comment: Testing | 8 - 25 mg/dL | EXTERNAL | | | | performed at [facility], [address] | | LAB | | | | [address], | | | | | | [place] [address] | | | | + + + + + + | Creatinine | 9.4 (H)Comment: Testing | 0.70 - 1.30 | EXTERNAL | | | | performed at [facility], [address] | mg/dL | LAB | | | | [address], | | | | | | [place] [address] | | | | + + + + + + | BUN/Creatin | 6Comment: Testing | | EXTERNAL | | | ine Ratio | performed at [facility], [address] | | LAB | | | | [address], | | | | | | [place] [address] | | | | + + + + + + | Calcium | 8.3 (L)Comment: Testing | 8.5 - 10.5 | EXTERNAL | | | | performed at [facility], [address] | mg/dL | LAB | | | | [address], | | | | | | [place] [address] | | | | + + + [...] W | | | | | | [employer], | | | | | | [place] [address] | | | | + + + [...] | | | Fingerstick | performed at [facility];[address] | | LAB | | | | [address];[place], [place] | | | | | | [address] | | | | + + + [...] | | | Fingerstick | performed at [facility];[address] | | LAB | | | | [address];[place] | | | | | | [address] | | | | + + + [...] | | | Fingerstick | performed at [facility];[address] | | LAB | | | | [address];[place], [place] | | | | | | [address] | | | | + + + [...] | | | Fingerstick | performed at [facility];[address] | | LAB | | | | [address];[place] | | | | | | [address] | | | | + + + [...] no pericardial effusion. MEASUREMENTS | | | Interim Controller: SHIRA Authenticated by: Flory Singh | | [...] | | is no pericardial effusion. MEASUREMENTS Interim Controller: SHIRAAutaliceticated by: | | Flory aRzo MDReport Date/Time: 09-13-2016 19:34:14 IMPRESSION: 1. Overall [...] | |MEASUREMENTS | | | | | |Interim Controller: GD | |Authenticated by: Flory Razo MD [...] at [facility];[address] | [address] | LAB | | | | [address];[place], [place] | | | | | | [address] | | | | + + + + + + | RED CELL | 2.89 (L)Comment: Testing | 4.20 - 5.70 | EXTERNAL | | | COUNT | performed at [facility];[address] | [address] | LAB | | | | [address];[place] | | | | | | [address] | | | | + + + + + + | Hgb | 9.0 (L)Comment: Testing | 13.2 - 17.0 | EXTERNAL | | | | performed at [facility];[address] | g/dL | LAB | | | | [address];[place] | | | | | | [address] | | | | + + + + + + | Hematocrit, | 25.8 (L)Comment: Testing | 39.0 - 50.0 % | EXTERNAL | | | POC | performed at [facility];[address] | | LAB | | | | [address];[place] | | | | | | [address] | | | | + + + + + + | MCV | 89.3Comment: Testing | 80.0 - 100.0 fl | EXTERNAL | | | | performed at [facility];[address] | | LAB | | | | [address];[place] | | | | | | [address] | | | | + + + + + + | MCH | 31.1Comment: Testing | 27.0 - 34.0 pg | EXTERNAL | | | | performed at [facility];[address] | | LAB | | | | [address];[place] | | | | | | [address] | | | | + + + + + + | MCHC | 34.9Comment: Testing | 32.0 - 35.5 | EXTERNAL | | | | performed at [facility];[address] | g/dL | LAB | | | | [address];[place] | | | | | | [address] | | | | + + + + + + | RDW-CV | 51.2Comment: Testing | 37 - 53 fl | EXTERNAL | | | | performed at [facility];[address] | | LAB | | | | [address];[place] | | | | | | [address] | | | | + + + + + + | Platelet | 230Comment: Testing | 150 - 400 K/uL | EXTERNAL | | | Count | performed at [facility];[address] | | LAB | | | Plasma | [address];[place] | | | | | | [address] | | | | + + + + + + | MPV | 6.5Comment: Testing | fl | EXTERNAL | | | | performed at [facility];[address] | | LAB | | | | [address];[place] | | | | | | [address] | | | | + + + + + + | Differentia | AUTOMATEDComment: | | EXTERNAL | | | l Type | Testing performed at | | LAB | | | | [facility];[address];[place] [address] | | | | + + + + + + | % Segmented | 72.42Comment: Testing | % | EXTERNAL | | | | performed at [facility];[address] | | LAB | | | Neutrophils | [address];[place] | | | | | | [address] | | | | + + + + + + | % | 7.78Comment: Testing | % | EXTERNAL | | | Lymphocytes | performed at [facility];[address] | | LAB | | | | [address];[place] | | | | | | [address] | | | | + + + + + + | % Monocytes | 13.64Comment: Testing | % | EXTERNAL | | | | performed at [facility];[address] | | LAB | | | | [address];[place] | | | | | | [address] | | | | + + + + + + | % | 5.69Comment: Testing | % | EXTERNAL | | | Eosinophils | performed at [facility];[address] | | LAB | | | | [address];[place] | | | | | | [address] | | | | + + + + + + | % Basophils | 0.47Comment: Testing | % | EXTERNAL | | | | performed at [facility];[address] | | LAB | | | | [address];[place] | | | | | | [address] | | | | + + + + + + | Absolute | 7.28Comment: Testing | 1.90 - 7.40 | EXTERNAL | | | Segmented | performed at [facility];[address] | K/u[address] | LAB | | | Neutrophils | [address];[place] | | | | | | [address] | | | | + + + + + + | Absolute | 0.78 (L)Comment: Testing | 1.00 - 3.90 | EXTERNAL | | | Lymphocytes | performed at [facility];[address] | [address] | LAB | | | | [address];[place] | | | | | | [address] | | | | + + + + + + | Absolute | 1.37 (H)Comment: Testing | 0.00 - 0.80 | EXTERNAL | | | Monocytes | performed at [facility];[address] | [address] | LAB | | | | [address];[place] | | | | | | [address] | | | | + + + + + + | Absolute | 0.57 (H)Comment: Testing | 0.00 - 0.50 | EXTERNAL | | | Eosinophils | performed at [facility];[address] | [address] | LAB | | | | [address];[place] | | | | | | [address] | | | | + + + + + + | Absolute | 0.05Comment: Testing | 0.00 - 0.10 | EXTERNAL | | | Basophils | performed at [facility];[address] | [address] | LAB | | | | [address];[place] | | | | | | [address] | | | | + + + [...] | LAB | | | | [address];[place], [place] | | | | | | [address] | | | | + + + [...] | performed at [facility] | | LAB | | | | [address];[place], [place] | | | | | | [address] | | | | + + + [...] + + | Hemoglobin | 6.0Comment: The [place] | 4.0 - 6.0 % | EXTERNAL [...] | | | | | performed at [facility], [address] | | | | | | [address] [facility], | | | | | | [place] [address] | | | | + + + [...] | | | | | performed at [facility], [address] | | | | | | [facility], | | | | | | [place] [address] | | | | + + + [...] | LAB | | | | [address];[place] | | | | | | [address] | | | | + + + + + + | K | 4.1Comment: Testing | 3.5 - 4.9 | EXTERNAL | | | | performed at [facility];[address] | mmol/L | LAB | | | | [address];[place] | | | | | | [address] | | | | + + + + + + | Cl | 93 (L)Comment: Testing | 99 - 109 mmol/L | EXTERNAL | | | | performed at [facility];[address] | | LAB | | | | [address];[place] | | | | | | [address] | | | | + + + + + + | CO2 | 25Comment: Testing | 23 - 32 mmol/L | EXTERNAL | | | | performed at [facility];[address] | | LAB | | | | [address];[place] | | | | | | [address] | | | | + + + + + + | Anion Gap | 17Comment: Testing | 5 - 20 mmol/L | EXTERNAL | | | | performed at [facility];[address] | | LAB | | | | [address];[place] | | | | | | [address] | | | | + + + + + + | Glucose, | 173 (H)Comment: Testing | 65 - 99 mg/dL | EXTERNAL | | | Fasting | performed at [facility];[address] | | LAB | | | | [address];[place] | | | | | | [address] | | | | + + + + + + | BUN | 40 (H)Comment: Testing | 8 - 25 mg/dL | EXTERNAL | | | | performed at [facility];[address] | | LAB | | | | [address];[place] | | | | | | [address] | | | | + + + + + + | Creatinine | 7.3 (H)Comment: Testing | 0.70 - 1.30 | EXTERNAL | | | | performed at [facility];[address] | mg/dL | LAB | | | | [address];[place] | | | | | | [address] | | | | + + + + + + | Calcium | 7.6 (L)Comment: Testing | 8.5 - 10.5 | EXTERNAL | | | | performed at [facility];[address] | mg/dL | LAB | | | | [address];[place] | | | | | | [address] | | | | + + + + + + | Albumin | 2.8 (L)Comment: Testing | 3.6 - 5.0 g/dL | EXTERNAL | | | | performed at [facility];[address] | | LAB | | | | [address];[place] | | | | | | [address] | | | | + + + + + + | PHOSPHORUS | 3.6Comment: Testing | 2.3 - 4.8 mg/dL | EXTERNAL | | | | performed at [facility];[address] | | LAB | | | | [address];[place] | | | | | | [address] | | | | + + + [...] | | at [facility];[address] [place] [address] | | | | | | [facility];[place] [address] | | | | + + + [...] K/uL | LAB | | | | [facility];[address];[place] [address] | | | | + + + + + + | RED CELL | 2.92 (L)Comment: Testing | 4.20 - 5.70 | EXTERNAL | | | COUNT | performed at [facility];[address] | M/uL | LAB | | | | [address];[place] | | | | | | [address] | | | | + + + + + + | Hgb | 8.9 (L)Comment: Testing | 13.2 - 17.0 | EXTERNAL | | | | performed at [facility];[address] | g/dL | LAB | | | | [address];[place] | | | | | | [address] | | | | + + + + + + | Hematocrit, | 26.2 (L)Comment: Testing | 39.0 - 50.0 % | EXTERNAL | | | POC | performed at [facility];[address] | | LAB | | | | [address];[place] | | | | | | [address] | | | | + + + + + + | MCV | 89.5Comment: Testing | 80.0 - 100.0 fl | EXTERNAL | | | | performed at [facility];[address] | | LAB | | | | [address];[place] | | | | | | [address] | | | | + + + + + + | MCH | 30.6Comment: Testing | 27.0 - 34.0 pg | EXTERNAL | | | | performed at [facility];[address] | | LAB | | | | [address];[place] | | | | | | [address] | | | | + + + + + + | MCHC | 34.1Comment: Testing | 32.0 - 35.5 | EXTERNAL | | | | performed at [facility];[address] | g/dL | LAB | | | | [address];[place] | | | | | | [address] | | | | + + + + + + | RDW-CV | 51.2Comment: Testing | 37 - 53 fl | EXTERNAL | | | | performed at [facility];[address] | | LAB | | | | [address];[place] | | | | | | [address] | | | | + + + + + + | Platelet | 255Comment: Testing | 150 - 400 K/uL | EXTERNAL | | | Count | performed at [facility];[address] | | LAB | | | Plasma | [address];[place] | | | | | | [address] | | | | + + + + + + | MPV | 6.5Comment: Testing | fl | EXTERNAL | | | | performed at [facility];[address] | | LAB | | | | [address];[place] | | | | | | [address] | | | | + + + + + + | Differentia | AUTOMATEDComment: | | EXTERNAL | | | l Type | Testing performed at | | LAB | | | | [facility];[address];[place] [address] | | | | + + + + + + | % Segmented | 82.52Comment: Testing | % | EXTERNAL | | | | performed at [facility];[address] | | LAB | | | Neutrophils | [address];[place] | | | | | | [address] | | | | + + + + + + | % | 3.94Comment: Testing | % | EXTERNAL | | | Lymphocytes | performed at [facility];[address] | | LAB | | | | [address];[place] | | | | | | [address] | | | | + + + + + + | % Monocytes | 10.34Comment: Testing | % | EXTERNAL | | | | performed at [facility];[address] | | LAB | | | | [address];[place] | | | | | | [address] | | | | + + + + + + | % | 2.63Comment: Testing | % | EXTERNAL | | | Eosinophils | performed at [facility];[address] | | LAB | | | | [address];[place] | | | | | | [address] | | | | + + + + + + | % Basophils | 0.57Comment: Testing | % | EXTERNAL | | | | performed at [facility];[address] | | LAB | | | | [address];[place] | | | | | | [address] | | | | + + + + + + | Absolute | 9.75 (H)Comment: Testing | 1.90 - 7.40 | EXTERNAL | | | Segmented | performed at [facility];[address] | K/uL | LAB | | | Neutrophils | [address];[place] | | | | | | [address] | | | | + + + + + + | Absolute | 0.47 (L)Comment: Testing | 1.00 - 3.90 | EXTERNAL | | | Lymphocytes | performed at [facility];[address] | K/uL | LAB | | | | [address];[place] | | | | | | [address] | | | | + + + + + + | Absolute | 1.22 (H)Comment: Testing | 0.00 - 0.80 | EXTERNAL | | | Monocytes | performed at [facility];[address] | K/uL | LAB | | | | [address];[place] | | | | | | [address] | | | | + + + + + + | Absolute | 0.31Comment: Testing | 0.00 - 0.50 | EXTERNAL | | | Eosinophils | performed at [facility];[address] | K/uL | LAB | | | | [address];[place] | | | | | | [address] | | | | + + + + + + | Absolute | 0.07Comment: Testing | 0.00 - 0.10 | EXTERNAL | | | Basophils | performed at [facility];[address] | K/uL | LAB | | | | [address];[place] | | | | | | [address] | | | | + + + [...] | performed at [facility];8 | | LAB | | | | [address];[place], [place] | | | | | | [address] | | | | + + + [...] | LAB | | | | [address];[place], [place] | | | | | | [address] | | | | + + + + + + | K | 4.9Comment: Testing | 3.5 - 4.9 | EXTERNAL | | | | performed at [facility];888 | mmol/L | LAB | | | | [address];[place] | | | | | | [address] | | | | + + + + + + | Cl | 93 (L)Comment: Testing | 99 - 109 mmol/L | EXTERNAL | | | | performed at [facility];[address] | | LAB | | | | [address];[place] | | | | | | [address] | | | | + + + + + + | CO2 | 24Comment: Testing | 23 - 32 mmol/L | EXTERNAL | | | | performed at [facility] [facility];[address] | | LAB | | | | [address];[place] | | | | | | [address] | | | | + + + + + + | Anion Gap | 17Comment: Testing | 5 - 20 mmol/L | EXTERNAL | | | | performed at [facility];[address] | | LAB | | | | [address];[place] | | | | | | [address] | | | | + + + + + + | Glucose, | 189 (H)Comment: Testing | 65 - 99 mg/dL | EXTERNAL | | | Fasting | performed at [facility];[address] | | LAB | | | | [address];[place] | | | | | | [address] | | | | + + + + + + | BUN | 52 (H)Comment: Testing | 8 - 25 mg/dL | EXTERNAL | | | | performed at [facility];[address] | | LAB | | | | [address];[place] | | | | | | [address] | | | | + + + + + + | Creatinine | 8.7 (H)Comment: Testing | 0.70 - 1.30 | EXTERNAL | | | | performed at [facility];888 | mg/dL | LAB | | | | [address];[place] | | | | | | [address] | | | | + + + + + + | Calcium | 7.1 (L)Comment: Testing | 8.5 - 10.5 | EXTERNAL | | | | performed at [facility];888 | mg/dL | LAB | | | | [address];[place] | | | | | | [address] | | | | + + + + + + | Albumin | 2.7 (L)Comment: Testing | 3.6 - 5.0 g/dL | EXTERNAL | | | | performed at [facility];[address] | | LAB | | | | [address];[place] | | | | | | [address] | | | | + + + + + + | PHOSPHORUS | 4.5Comment: Testing | 2.3 - 4.8 mg/dL | EXTERNAL | | | | performed at [facility];[address] | | LAB | | | | [address];[place] | | | | | | [address] | | | | + + + [...] | | at [facility];[address] [place] [address] | | | | | | [facility];[place] [address] | | | | + + + [...] prior day venogram | | | PRIMARY WEB EDITOR: Jimenez Garnica MD, PhD, RPVI OPERATIONS: 1. [...] | | | a 70 cm 7 Samoan Jules sheath was advanced to the right atrium. 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 Following [...] and | | prior day venogram PRIMARY WEB EDITOR: Jimenez Garnica MD, PhD, RPVI OPERATIONS:1. | [...] was obtained and a 70 cm 7 Samoan Jules | | sheath was advanced to the right atrium. Next, the right basilic vein was locally | | anesthetized with lidocaine and real-time ultrasound guided micropuncture access was | | obtained and a 6 Samoan 45 cm destination sheath was placed to [...] an echocardiogram and while awaiting for the nuclear plant instrument technician to | | arise, he began [...] still remains | | significant recoil but holiness of in-line flow. Following provisional stent | [...] prior day venogram | | | PRIMARY WEB EDITOR: Jimenez Garnica MD, PhD, RPVI OPERATIONS: 1. [...] | | | a 70 cm 7 Samoan Jules sheath was advanced to the right atrium. 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 Following [...] and | | prior day venogram PRIMARY WEB EDITOR: Jimenez Garnica MD, PhD, VI OPERATIONS:1. | [...] was obtained and a 70 cm 7 Samoan Jules | | sheath was advanced to the right atrium. Next, the right basilic vein was locally | | anesthetized with lidocaine and real-time ultrasound guided micropuncture access was | | obtained and a 6 Samoan 45 cm destination sheath was placed to [...] an echocardiogram and while awaiting for the nuclear plant instrument technician to | | arise, he began [...] still remains | | significant recoil but holiness of in-line flow. Following provisional stent | [...] pericardial | | | effusion present. 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44 cmIVC collapse: 0.39 cmIVC % | | collapse: 71.27 %HR: 82.96 BPMAV maxP.62 mmHgAV meanP.44 mmHgAV Vmax: | | 1.70 m/[place] Vmean: 1.32 m/[place] VTI: 38.03 cmAVA Vmax: 2.75 cm2AVA (VTI): 2.89 | | [id number] Vmax: 0.00 cm2/m2AVAI (VTI): 0.00 cm2/m2LVCI Dopp: 4.59 l/[id number] Dopp: | | 8.95 l/minHR: 81.40 BPMLVOT [...] 0.14 m/sTV A Lenard: 0.84 m/sTV Dec Summit: | | 3.82 m/s2TV Dec Time: 202.99 msTV E Lenard: 0.77 m/sTV E/A Ratio: 0.91 Interim Controller: | | KVWAuthenticated by: Kevin Ellis MDReport [...] A Lenard: 0.84 m/s | |TV Dec Summit: 3.82 m/s2 | |TV Dec Time: 202.99 ms | |TV E Lenard: 0.77 m/s | |TV E/A Ratio: 0.91 | | | |Interim Controller: KVW | |Authenticated by: Kevin Ellis MD [...] at [facility];888 | K/uL | LAB | | | | [address];[place] | | | | | | [address] | | | | + + + + + + | RED CELL | 3.18 (L)Comment: Testing | 4.20 - 5.70 | EXTERNAL | | | COUNT | performed at [facility];888 | M/uL | LAB | | | | [address];[place] | | | | | | [address] | | | | + + + + + + | Hgb | 9.6 (L)Comment: Testing | 13.2 - 17.0 | EXTERNAL | | | | performed at [facility];888 | g/dL | LAB | | | | [address];[place] | | | | | | [address] | | | | + + + + + + | Hematocrit, | 28.2 (L)Comment: Testing | 39.0 - 50.0 % | EXTERNAL | | | POC | performed at [facility];[address] | | LAB | | | | [address];[place] | | | | | | [address] | | | | + + + + + + | MCV | 88.8Comment: Testing | 80.0 - 100.0 fl | EXTERNAL | | | | performed at [facility];[address] | | LAB | | | | [address];[place] | | | | | | [address] | | | | + + + + + + | MCH | 30.2Comment: Testing | 27.0 - 34.0 pg | EXTERNAL | | | | performed at [facility];[address] | | LAB | | | | [address];[place] | | | | | | [address] | | | | + + + + + + | MCHC | 34.0Comment: Testing | 32.0 - 35.5 | EXTERNAL | | | | performed at [facility];888 | g/dL | LAB | | | | [address];[place] | | | | | | [address] | | | | + + + + + + | RDW-CV | 52.9Comment: Testing | 37 - 53 fl | EXTERNAL | | | | performed at [facility];[address] | | LAB | | | | [address];[place] | | | | | | [address] | | | | + + + + + + | Platelet | 239Comment: Testing | 150 - 400 K/uL | EXTERNAL | | | Count | performed at [facility];[address] | | LAB | | | Plasma | [address];[place] | | | | | | [address] | | | | + + + + + + | MPV | 6.1Comment: Testing | fl | EXTERNAL | | | | performed at [facility];[address] | | LAB | | | | [address];[place] | | | | | | [address] | | | | + + + + + + | Differentia | AUTOMATEDComment: | | EXTERNAL | | | l Type | Testing performed at | | LAB | | | | [facility];[address];[place] [address] | | | | + + + + + + | % Segmented | 71.63Comment: Testing | % | EXTERNAL | | | | performed at [facility];[address] | | LAB | | | Neutrophils | [address];[place] | | | | | | [address] | | | | + + + + + + | % | 9.51Comment: Testing | % | EXTERNAL | | | Lymphocytes | performed at [facility];[address] | | LAB | | | | [address];[place] | | | | | | [address] | | | | + + + + + + | % Monocytes | 10.36Comment: Testing | % | EXTERNAL | | | | performed at [facility];[address] | | LAB | | | | [address];[place] | | | | | | [address] | | | | + + + + + + | % | 7.66Comment: Testing | % | EXTERNAL | | | Eosinophils | performed at [facility];[address] | | LAB | | | | [address];[place] | | | | | | [address] | | | | + + + + + + | % Basophils | 0.84Comment: Testing | % | EXTERNAL | | | | performed at [facility];[address] | | LAB | | | | [address];[place] | | | | | | [address] | | | | + + + + + + | Absolute | 6.92Comment: Testing | 1.90 - 7.40 | EXTERNAL | | | Segmented | performed at [facility];888 | K/uL | LAB | | | Neutrophils | [address];[place] | | | | | | [address] | | | | + + + + + + | Absolute | 0.92 (L)Comment: Testing | 1.00 - 3.90 | EXTERNAL | | | Lymphocytes | performed at [facility];888 | K/uL | LAB | | | | [address];[place] | | | | | | [address] | | | | + + + + + + | Absolute | 1.00 (H)Comment: Testing | 0.00 - 0.80 | EXTERNAL | | | Monocytes | performed at [facility];888 | K/uL | LAB | | | | [address];[place] | | | | | | [address] | | | | + + + + + + | Absolute | 0.74 (H)Comment: Testing | 0.00 - 0.50 | EXTERNAL | | | Eosinophils | performed at [facility];888 | K/uL | LAB | | | | [address];[place] | | | | | | [address] | | | | + + + + + + | Absolute | 0.08Comment: Testing | 0.00 - 0.10 | EXTERNAL | | | Basophils | performed at [facility];888 | K/uL | LAB | | | | [address];[place] | | | | | | [address] | | | | + + + [...] | performed at [facility] | | LAB | | | | [address];[place], [place] | | | | | | [address] | | | | + + + [...] | LAB | | | | [address];[place], [place] | | | | | | [address] | | | | + + + [...] [place] | | | | | | [address] | | | | + + + + + + | K | 4.5Comment: Testing | 3.5 - 4.9 | EXTERNAL | | | | performed at [facility];888 | mmol/L | LAB | | | | [address];[place] | | | | | | [address] | | | | + + + + + + | Cl | 95 (L)Comment: Testing | 99 - 109 mmol/L | EXTERNAL | | | | performed at [facility];[address] | | LAB | | | | [address];[place] | | | | | | [address] | | | | + + + + + + | CO2 | 28Comment: Testing | 23 - 32 mmol/L | EXTERNAL | | | | performed at [facility];[address] | | LAB | | | | [address];[place] | | | | | | [address] | | | | + + + + + + | Anion Gap | 14Comment: Testing | 5 - 20 mmol/L | EXTERNAL | | | | performed at [facility];[address] | | LAB | | | | [address];[place] | | | | | | [address] | | | | + + + + + + | Glucose, | 100 (H)Comment: Testing | 65 - 99 mg/dL | EXTERNAL | | | Fasting | performed at [facility];[address] | | LAB | | | | [address];[place] | | | | | | [address] | | | | + + + + + + | BUN | 40 (H)Comment: Testing | 8 - 25 mg/dL | EXTERNAL | | | | performed at [facility];[address] | | LAB | | | | [address];[place] | | | | | | [address] | | | | + + + + + + | Creatinine | 6.4 (H)Comment: Testing | 0.70 - 1.30 | EXTERNAL | | | | performed at [facility];888 | mg/dL | LAB | | | | [address];[place] | | | | | | [address] | | | | + + + + + + | BUN/Creatin | 6Comment: Testing | | EXTERNAL | | | ine Ratio | performed at [facility];[address] | | LAB | | | | [address];[place] | | | | | | [address] | | | | + + + + + + | Calcium | 7.3 (L)Comment: Testing | 8.5 - 10.5 | EXTERNAL | | | | performed at [facility];888 | mg/dL | LAB | | | | [address];[place] | | | | | | [address] | | | | + + + + + + | Protein, | 6.8Comment: Testing | 6.3 - 8.2 g/dL | EXTERNAL | | | Total | performed at [facility];[address] | | LAB | | | | [address];[place] | | | | | | [address] | | | | + + + + + + | Albumin | 2.9 (L)Comment: Testing | 3.6 - 5.0 g/dL | EXTERNAL | | | | performed at [facility];[address] | | LAB | | | | [address];[place] | | | | | | [address] | | | | + + + + + + | Globulin | 3.9Comment: Testing | 1.3 - 4.9 g/dL | EXTERNAL | | | | performed at [facility];[address] | | LAB | | | | [address];[place] | | | | | | [address] | | | | + + + + + + | A/G Ratio | 0.8 (L)Comment: Testing | 1.0 - 2.4 | EXTERNAL | | | | performed at [facility];[address] | | LAB | | | | [address];[place] | | | | | | [address] | | | | + + + + + + | Bilirubin | 0.5Comment: Testing | 0.1 - 1.5 mg/dL | EXTERNAL | | | Total | performed at [facility];[address] | | LAB | | | | [address];[place] | | | | | | [address] | | | | + + + + + + | ALP, | 82Comment: Testing | 35 - 115 U/L | EXTERNAL | | | External | performed at [facility];[address] | | LAB | | | | [address];[place] | | | | | | [address] | | | | + + + + + + | AST | 14Comment: Testing | 10 - 45 U/L | EXTERNAL | | | | performed at [facility];[address] | | LAB | | | | [address];[place] | | | | | | [address] | | | | + + + + + + | ALT | 17Comment: Testing | 10 - 65 U/L | EXTERNAL | | | | performed at [facility];[address] | | LAB | | | | [address];[place] | | | | | | [address] | | | | + + + [...] | | at [facility];[address];[place] [address] | | | | + + + [...] at [facility];888 | K/uL | LAB | | | | [address];[place] | | | | | | [address] | | | | + + + + + + | RED CELL | 3.28 (L)Comment: Testing | 4.20 - 5.70 | EXTERNAL | | | COUNT | performed at [facility];888 | M/uL | LAB | | | | [address];[place] | | | | | | [address] | | | | + + + + + + | Hgb | 10.1 (L)Comment: Testing | 13.2 - 17.0 | EXTERNAL | | | | performed at [facility];888 | g/dL | LAB | | | | [address];[place] | | | | | | [address] | | | | + + + + + + | Hematocrit, | 29.0 (L)Comment: Testing | 39.0 - 50.0 % | EXTERNAL | | | POC | performed at [facility];[address] | | LAB | | | | [address];[place] | | | | | | [address] | | | | + + + + + + | MCV | 88.5Comment: Testing | 80.0 - 100.0 fl | EXTERNAL | | | | performed at [facility];[address] | | LAB | | | | [address];[place] | | | | | | [address] | | | | + + + + + + | MCH | 30.9Comment: Testing | 27.0 - 34.0 pg | EXTERNAL | | | | performed at [facility];[address] | | LAB | | | | [address];[place] | | | | | | [address] | | | | + + + [...] [place] | | | | | | [address] | | | | + + + + + + | Platelet | 223Comment: Testing | 150 - 400 K/uL | EXTERNAL | | | Count | performed at [facility];[address] | | LAB | | | Plasma | [address];[place] | | | | | | [address] | | | | + + + + + + | MPV | 6.5Comment: Testing | fl | EXTERNAL | | | | performed at [facility];[address] | | LAB | | | | [address];[place] | | | | | | [address] | | | | + + + + + + | Differentia | AUTOMATEDComment: | | EXTERNAL | | | l Type | Testing performed at | | LAB | | | | [facility];[address];[place] [address] | | | | + + + + + + | % Segmented | 73.14Comment: Testing | % | EXTERNAL | | | | performed at [facility];[address] | | LAB | | | Neutrophils | [address];[place] | | | | | | [address] | | | | + + + + + + | % | 8.28Comment: Testing | % | EXTERNAL | | | Lymphocytes | performed at [facility];[address] | | LAB | | | | [address];[place] | | | | | | [address] | | | | + + + + + + | % Monocytes | 10.77Comment: Testing | % | EXTERNAL | | | | performed at [facility];[address] | | LAB | | | | [address];[place] | | | | | | [address] | | | | + + + + + + | % | 7.40Comment: Testing | % | EXTERNAL | | | Eosinophils | performed at [facility];[address] | | LAB | | | | [address];[place] | | | | | | [address] | | | | + + + [...] at [facility];888 | K/uL | LAB | | | Neutrophils | [address];[place] | | | | | | [address] | | | | + + + + + + | Absolute | 0.77 (L)Comment: Testing | 1.00 - 3.90 | EXTERNAL | | | Lymphocytes | performed at [facility];888 | K/uL | LAB | | | | [address];[place] | | | | | | [address] | | | | + + + + + + | Absolute | 1.00 (H)Comment: Testing | 0.00 - 0.80 | EXTERNAL | | | Monocytes | performed at [facility];888 | K/uL | LAB | | | | [address];[place] | | | | | | [address] | | | | + + + + + + | Absolute | 0.68 (H)Comment: Testing | 0.00 - 0.50 | EXTERNAL | | | Eosinophils | performed at [facility];888 | K/uL | LAB | | | | [address];[place] | | | | | | [address] | | | | + + + + + + | Absolute | 0.04Comment: Testing | 0.00 - 0.10 | EXTERNAL | | | Basophils | performed at [facility];[address] | K/uL | LAB | | | | [address];[place], [place] | | | | | | [address] | | | | + + + [...] | LAB | | | | [address];[place], [place] | | | | | | [address] | | | | + + + [...] | LAB | | | | [address];[place] | | | | | | [address] | | | | + + + [...] [place] | | | | | | [address] | | | | + + + + + + | K | 3.8Comment: Testing | 3.5 - 4.9 | EXTERNAL | | | | performed at [facility];888 | mmol/L | LAB | | | | [address];[place] | | | | | | [address] | | | | + + + + + + | Cl | 97 (L)Comment: Testing | 99 - 109 mmol/L | EXTERNAL | | | | performed at [facility];[address] | | LAB | | | | [address];[place] | | | | | | [address] | | | | + + + + + + | CO2 | 28Comment: Testing | 23 - 32 mmol/L | EXTERNAL | | | | performed at [facility];[address] | | LAB | | | | [address];[place] | | | | | | [address] | | | | + + + + + + | Anion Gap | 14Comment: Testing | 5 - 20 mmol/L | EXTERNAL | | | | performed at [facility];[address] | | LAB | | | | [address];[place] | | | | | | [address] | | | | + + + + + + | Glucose, | 120 (H)Comment: Testing | 65 - 99 mg/dL | EXTERNAL | | | Fasting | performed at [facility];[address] | | LAB | | | | [address];[place] | | | | | | [address] | | | | + + + + + + | BUN | 27 (H)Comment: Testing | 8 - 25 mg/dL | EXTERNAL | | | | performed at [facility];[address] | | LAB | | | | [address];[place] | | | | | | [address] | | | | + + + + + + | Creatinine | 4.5 (H)Comment: Testing | 0.70 - 1.30 | EXTERNAL | | | | performed at [facility];888 | mg/dL | LAB | | | | [address];[place] | | | | | | [address] | | | | + + + + + + | BUN/Creatin | 6Comment: Testing | | EXTERNAL | | | ine Ratio | performed at [facility];[address] | | LAB | | | | [address];[place] | | | | | | [address] | | | | + + + + + + | Calcium | 7.8 (L)Comment: Testing | 8.5 - 10.5 | EXTERNAL | | | | performed at [facility];888 | mg/dL | LAB | | | | [address];[place] | | | | | | [address] | | | | + + + + + + | Protein, | 7.1Comment: Testing | 6.3 - 8.2 g/dL | EXTERNAL | | | Total | performed at [facility];[address] | | LAB | | | | [address];[place] | | | | | | [address] | | | | + + + + + + | Albumin | 3.1 (L)Comment: Testing | 3.6 - 5.0 g/dL | EXTERNAL | | | | performed at [facility];[address] | | LAB | | | | [address];[place] | | | | | | [address] | | | | + + + + + + | Globulin | 4.0Comment: Testing | 1.3 - 4.9 g/dL | EXTERNAL | | | | performed at [facility];[address] | | LAB | | | | [address];[place] | | | | | | [address] | | | | + + + + + + | A/G Ratio | 0.8 (L)Comment: Testing | 1.0 - 2.4 | EXTERNAL | | | | performed at [facility];[address] | | LAB | | | | [address];[place] | | | | | | [address] | | | | + + + + + + | Bilirubin | 0.5Comment: Testing | 0.1 - 1.5 mg/dL | EXTERNAL | | | Total | performed at [facility];[address] | | LAB | | | | [address];[place] | | | | | | [address] | | | | + + + + + + | ALP, | 91Comment: Testing | 35 - 115 U/L | EXTERNAL | | | External | performed at [facility];[address] | | LAB | | | | [address];[place] | | | | | | [address] | | | | + + + + + + | AST | 15Comment: Testing | 10 - 45 U/L | EXTERNAL | | | | performed at [facility];[address] | | LAB | | | | [address];[place] | | | | | | [address] | | | | + + + + + + | ALT | 23Comment: Testing | 10 - 65 U/L | EXTERNAL | | | | performed at [facility];[address] | | LAB | | | | [facility], [place] | | | | | | [address] | | | | + + + [...] | | at [facility];[address] [facility] | | | | | | [address];[place] [address] | | | | + + + [...] was | | | notified by the phlebotomy technologist and was asked to evaluate the [...] injection site. I was notified by the phlebotomy technologist and was asked to evaluate the [...] guidance SURGEON Oskar Meyer, | | | TRAIN DIRECTOR None ANESTHESIA Moderate sedation, local | | [...] | | | subclavian vein. Therefore a 6-Samoan sheath was then inserted over | | [...] guidance SURGEON Oskar Meyer, | | | TRAIN DIRECTOR None ANESTHESIA Moderate sedation, local | | [...] | | | subclavian vein. Therefore a 6-Samoan sheath was then inserted over | | [...] SURGEON Oskar Meyer, | | | MD TRAIN DIRECTOR None ANESTHESIA Moderate sedation, local | | [...] | | | subclavian vein. Therefore a 6-Samoan sheath was then inserted over | | [...] SURGEON Oskar Meyer, | | | MD TRAIN DIRECTOR None ANESTHESIA Moderate sedation, local | | [...] | | | subclavian vein. Therefore a 6-Samoan sheath was then inserted over | | [...] | | | Fingerstick | performed at [facility];[address] | | LAB | | | | [address];[place] | | | | | | [address] | | | | + + + [...] | | | Fingerstick | performed at [facility];[address] | | LAB | | | | [address];[place], [place] | | | | | | [address] | | | | + + + [...] | | | | | [place] [address] | | | | + + + + + + | RED CELL | 3.39 (L)Comment: Testing | 4.20 - 5.70 | EXTERNAL | | | COUNT | performed at [facility], [address] | M/uL | LAB | | | | [address], | | | | | | [place] [address] | | | | + + + + + + | Hgb | 10.4 (L)Comment: Testing | 13.2 - 17.0 | EXTERNAL | | | | performed at [facility], [address] | g/dL | LAB | | | | [address], | | | | | | [place] [address] | | | | + + + + + + | Hematocrit, | 29.7 (L)Comment: Testing | 39.0 - 50.0 % | EXTERNAL | | | POC | performed at [facility], [address] | | LAB | | | | [address], | | | | | | [place] [address] | | | | + + + + + + | MCV | 87.6Comment: Testing | 80.0 - 100.0 fl | EXTERNAL | | | | performed at [facility], [address] | | LAB | | | | [address], | | | | | | [place] [address] | | | | + + + + + + | MCH | 30.5Comment: Testing | 27.0 - 34.0 pg | EXTERNAL | | | | performed at [facility], [address] | | LAB | | | | [address], | | | | | | [place] [address] | | | | + + + + + + | MCHC | 34.9Comment: Testing | 32.0 - 35.5 | EXTERNAL | | | | performed at [facility], [address] | g/dL | LAB | | | | [address], | | | | | | [place] [address] | | | | + + + + + + | RDW-CV | 52.9Comment: Testing | 37 - 53 fl | EXTERNAL | | | | performed at [facility], [address] | | LAB | | | | [address], | | | | | | [place], [place] [address] | | | | + + + + + + | Platelet | 255Comment: Testing | 150 - 400 K/uL | EXTERNAL | | | Count | performed at [facility], [address] | | LAB | | | Plasma | [address], | | | | | | [place], [place] [address] | | | | + + + + + + | MPV | 6.8Comment: Testing | fl | EXTERNAL | | | | performed at [facility], [address] | | LAB | | | | [address], | | | | | | [place], [place] [address] | | | | + + + + + + | Differentia | MANUALComment: Testing | | EXTERNAL | | | l Type | performed at [facility], [address] | | LAB | | | | [address], | | | | | | [place], [place] [address] | | | | + + + + + + | Segmented | 95Comment: Testing | % | EXTERNAL | | | Neutrophils | performed at [facility], [address] | | LAB | | | Manual | [address], | | | | | | [place] [address] | | | | + + + + + + | Lymphocytes | 3Comment: Testing | % | EXTERNAL | | | Manual | performed at [facility], [address] | | LAB | | | | [address], | | | | | | [place] [address] | | | | + + + + + + | Monocytes | 2Comment: Testing | % | EXTERNAL | | | Manual | performed at [facility], [address] | | LAB | | | | [address], | | | | | | [place] [address] | | | | + + + + + + | Absolute | 9.41 (H)Comment: Testing | 1.90 - 7.40 | EXTERNAL | | | Neutrophils | performed at [facility], [address] | [address] | LAB | | | | [address], | | | | | | [place] [address] | | | | + + + + + + | Absolute | 0.30 (L)Comment: Testing | 1.00 - 3.90 | EXTERNAL | | | Lymphocytes | performed at [facility], [address] | LAB | | | | [address], | | | | | | [place] [address] | | | | + + + + + + | Absolute | 0.20Comment: Testing | 0.00 - 0.80 | EXTERNAL | | | Monocytes | performed at [facility], [address] | [address] | LAB | | | [address], | | | | | | [place] [address] | | | | + + + + + + | RBC | RBC AND PLT MORPHOLOGY | | EXTERNAL | | | Morphology | APPEAR NORMALComment: | | LAB | | | | Testing performed at | | | | | | [facility], [address] | | | | | | [place] | | | | | | [address] | | | | + + + [...] EXTERNAL | | | | performed at [facility], [address] | | LAB | | | | [address], | | | | | | [place] [address] | | | | + + + [...] EXTERNAL | | | | performed at [facility], [address] | | LAB | | | | [address], | | | | | | [place] [address] | | | | + + + [...] | LAB | | | | [address];[place] | | | | | | [address] | | | | + + + [...] | | | | | [place] [address] | | | | + + + + + + | K | 4.4Comment: Testing | 3.5 - 4.9 | EXTERNAL | | | | performed at [facility], [address] | mmol/L | LAB | | | | [address], | | | | | | [place] [address] | | | | + + + + + + | Cl | 98 (L)Comment: Testing | 99 - 109 mmol/L | EXTERNAL | | | | performed at [facility], [address] | | LAB | | | | [address], | | | | | | [place] [address] | | | | + + + + + + | CO2 | 22 (L)Comment: Testing | 23 - 32 mmol/L | EXTERNAL | | | | performed at [facility], [address] | | LAB | | | [address], | | | | | | [place] [address] | | | | + + + + + + | Anion Gap | 19Comment: Testing | 5 - 20 mmol/L | EXTERNAL | | | | performed at [facility], [address] | | LAB | | | | [address], | | | | | | [place] [address] | | | | + + + + + + | Glucose, | 169 (H)Comment: Testing | 65 - 99 mg/dL | EXTERNAL | | | Fasting | performed at [facility], [address] | | LAB | | | | [address], | | | | | | [place] [address] | | | | + + + + + + | BUN | 41 (H)Comment: Testing | 8 - 25 mg/dL | EXTERNAL | | | | performed at [facility], [address] | | LAB | | | | [address], | | | | | | [place] [address] | | | | + + + + + + | Creatinine | 5.5 (H)Comment: Testing | 0.70 - 1.30 | EXTERNAL | | | | performed at [facility], [address] | mg/dL | LAB | | | | [address], | | | | | | [place] [address] | | | | + + + + + + | BUN/Creatin | 7Comment: Testing | | EXTERNAL | | | ine Ratio | performed at [facility], [address] | | LAB | | | | [address], | | | | | | [place] [address] | | | | + + + + + + | Calcium | 8.5Comment: Testing | 8.5 - 10.5 | EXTERNAL | | | | performed at [facility], [address] | mg/dL | LAB | | | | [address], | | | | | | [place] [address] | | | | + + + + + + | Protein, | 7.4Comment: Testing | 6.3 - 8.2 g/dL | EXTERNAL | | | Total | performed at [facility], [address] | | LAB | | | | [address], | | | | | | [place] [address] | | | | + + + + + + | Albumin | 3.5 (L)Comment: Testing | 3.6 - 5.0 g/dL | EXTERNAL | | | | performed at [facility], [address] | | LAB | | | | [address], | | | | | | [place] [address] | | | | + + + + + + | Globulin | 3.9Comment: Testing | 1.3 - 4.9 g/dL | EXTERNAL | | | | performed at [facility], [address] | | LAB | | | | [address], | | | | | | [place] [address] | | | | + + + + + + | A/G Ratio | 0.9 (L)Comment: Testing | 1.0 - 2.4 | EXTERNAL | | | | performed at [facility], [address] | | LAB | | | | [address], | | | | | | [place] [address] | | | | + + + + + + | Bilirubin | 0.8Comment: Testing | 0.1 - 1.5 mg/dL | EXTERNAL | | | Total | performed at [facility], [address] | | LAB | | | | [address], | | | | | | [place] [address] | | | | + + + + + + | ALP, | 81Comment: Testing | 35 - 115 U/L | EXTERNAL | | | External | performed at [facility], [address] | | LAB | | | | [address], | | | | | | [place] [address] | | | | + + + + + + | AST | 23Comment: Testing | 10 - 45 U/L | EXTERNAL | | | | performed at [facility], [address] | | LAB | | | | [address], | | | | | | [place] [address] | | | | + + + + + + | ALT | 35Comment: Testing | 10 - 65 U/L | EXTERNAL | | | | performed at [facility], [address] | | LAB | | | | [employer], | | | | | | [place] [address] | | | | + + + [...] | | | | | [place] [address] | | | | + + + [...] | | | Fingerstick | performed at [facility];[address] | | LAB | | | | [address];[place], [place] | | | | | | [address] | | | | + + + [...] 1:06AM Referring Provider Line: | | | [phone] ID: [id number] | | + + + [...] 2016 1:06AM Referring | | Provider Line: [phone] ID: [id number] | |COMPARISON: 04/28/2016. | | [...] 08 2016 1:06AM Referring Provider Mariah ne: [phone] ID: [id number] | + + POC Glucose (09/07/2016 11:47 PM PDT) + + + + + + | Component | Value | Ref Range | Performed | Pathologist | | | | | At | Signature | + + + + + + | Glucose, | 115 (H)Comment: Testing | 65 - 99 mg/dL | EXTERNAL | | | Fingerstick | performed at [facility];[address] | | LAB | | | | [address];[place], [place] | | | | | | [address] | | | | + + + [...] | | | Fingerstick | performed at [facility];[address] | | LAB | | | | [address];[place] | | | | | | [address] | | | | + + + [...] [place] | | | | | | [address] | | | | + + + + + + | Clarity | CLEARComment: Testing | | EXTERNAL | | | | performed at [facility];[address] | | LAB | | | | [address];[place] | | | | | | [address] | | | | + + + + + + | Specific | 1.008Comment: Testing | 1.002 - 1.030 | EXTERNAL | | | [place] | performed at [facility];[address] | | LAB | | | | [address];[place] | | | | | | [address] | | | | + + + + + + | Leukocyte | NEGATIVEComment: Testing | | EXTERNAL | | | Esterase, | performed at [facility];[address] | | LAB | | | Urine | [address];[place] | | | | | | [address] | | | | + + + + + + | Nitrite, | NEGATIVEComment: Testing | | EXTERNAL | | | Urine | performed at [facility];[address] | | LAB | | | | [address];[place] | | | | | | [address] | | | | + + + + + + | Urobilinoge | NORMALComment: Testing | mg/dL | EXTERNAL | | | n, Urine | performed at [facility];[address] | | LAB | | | | [address];[place] | | | | | | [address] | | | | + + + + + + | Protein, | 100 (A)Comment: Testing | mg/dL | EXTERNAL | | | Urine | performed at [facility];[address] | | LAB | | | | [address];[place] | | | | | | [address] | | | | + + + + + + | pH, Urine | 6.0Comment: Testing | 5.0 - 8.0 | EXTERNAL | | | | performed at [facility];[address] | | LAB | | | | [address];[place] | | | | | | [address] | | | | + + + + + + | Blood, | SMALL (A)Comment: | | EXTERNAL | | | Urine | Testing performed at | | LAB | | | | [facility];[address];[place] [address] | | | | + + + + + + | Ketones | NEGATIVEComment: Testing | mg/dL | EXTERNAL | | | | performed at [facility];[address] | | LAB | | | | [address];[place] | | | | | | [address] | | | | + + + + + + | Bilirubin, | NEGATIVEComment: Testing | | EXTERNAL | | | Urine | performed at [facility];[address] | | LAB | | | | [address];[place] | | | | | | [address] | | | | + + + + + + | Glucose, | >500 (A)Comment: Testing | mg/dL | EXTERNAL | | | Urine | performed at [facility];[address] | | LAB | | | | [address];[place] | | | | | | [address] | | | | + + + + + + | WBC, UA | 0-2Comment: Testing | 0 - 5 /hpf | EXTERNAL | | | | performed at [facility];[address] | | LAB | | | | [address];[place] | | | | | | [address] | | | | + + + + + + | RBC, UA | NONE SEENComment: | 0 - 2 /hpf | EXTERNAL | | | | Testing performed at | | LAB | | | | [facility];[address];[place] [address] | | | | + + + + + + | Bacteria, | NONE SEENComment: | | EXTERNAL | | | UA | Testing performed at | | LAB | | | | [facility];[address];[place] [address] | | | | + + + + + + | Epithelial | 26-49Comment: Testing | /lpf | EXTERNAL | | | Cells | performed at [facility];[address] | | LAB | | | | [address];[place] | | | | | | [address] | | | | + + + [...] | performed at [facility] | | | | | | [address];[place], [place] | | | | | | [address] | | | | + + + [...] at [facility];[address] | [address] | LAB | | | | [address];[place] | | | | | | [address] | | | | + + + + + + | RED CELL | 3.37 (L)Comment: Testing | 4.20 - 5.70 | EXTERNAL | | | COUNT | performed at [facility];[address] | [address] | LAB | | | | [address];[place] | | | | | | [address] | | | | + + + + + + | Hgb | 10.4 (L)Comment: Testing | 13.2 - 17.0 | EXTERNAL | | | | performed at [facility];[address] | g/dL | LAB | | | | [address];[place] | | | | | | [address] | | | | + + + + + + | Hematocrit, | 30.4 (L)Comment: Testing | 39.0 - 50.0 % | EXTERNAL | | | POC | performed at [facility];[address] | | LAB | | | | [address];[place] | | | | | | [address] | | | | + + + + + + | MCV | 90.1Comment: Testing | 80.0 - 100.0 fl | EXTERNAL | | | | performed at [facility];[address] | | LAB | | | | [address];[place] | | | | | | [address] | | | | + + + + + + | MCH | 30.8Comment: Testing | 27.0 - 34.0 pg | EXTERNAL | | | | performed at [facility];[address] | | LAB | | | | [address];[place] | | | | | | [address] | | | | + + + + + + | MCHC | 34.1Comment: Testing | 32.0 - 35.5 | EXTERNAL | | | | performed at [facility];[address] | g/dL | LAB | | | | [address];[place] | | | | | | [address] | | | | + + + + + + | RDW-CV | 54.7 (H)Comment: Testing | 37 - 53 fl | EXTERNAL | | | | performed at [facility];[address] | | LAB | | | | [address];[place] | | | | | | [address] | | | | + + + + + + | Platelet | 224Comment: Testing | 150 - 400 K/uL | EXTERNAL | | | Count | performed at [facility];[address] | | LAB | | | Plasma | [address];[place] | | | | | | [address] | | | | | | | | | | + + + + + + | MPV | 6.5Comment: Testing | fl | EXTERNAL | | | | performed at [facility];[address] | | LAB | | | | [address];[place] | | | | | | [address] | | | | | | | | | | + + + + + + | Differentia | MANUALComment: Testing | | EXTERNAL | | | l Type | performed at [facility];[address] | | LAB | | | | [address];[place] | | | | | | [address] | | | | + + + + + + | Segmented | 86Comment: Testing | % | EXTERNAL | | | Neutrophils | performed at [facility];[address] | | LAB | | | Manual | [address];[place] | | | | | | [address] | | | | + + + + + + | % Bands | 11Comment: Testing | % | EXTERNAL | | | | performed at [facility];[address] | | LAB | | | | [address];[place] | | | | | | [address] | | | | + + + + + + | Lymphocytes | 2Comment: Testing | % | EXTERNAL | | | Manual | performed at [facility];[address] | | LAB | | | | [address];[place] | | | | | | [address] | | | | + + + + + + | Monocytes | 1Comment: Testing | % | EXTERNAL | | | Manual | performed at [facility];[address] | | LAB | | | | [address];[place] | | | | | | [address] | | | | + + + + + + | Absolute | 9.43 (H)Comment: Testing | 1.90 - 7.40 | EXTERNAL | | | Neutrophils | performed at [facility];[address] | [address] | LAB | | | | [address];[place] | | | | | | [address] | | | | + + + + + + | Bands | 1.21 (H)Comment: Testing | 0.00 - 0.20 | EXTERNAL | | | Manual | performed at [facility];[address] | [address] | LAB | | | | [address];[place] | | | | | | [address] | | | | + + + + + + | Absolute | 0.22 (L)Comment: Testing | 1.00 - 3.90 | EXTERNAL | | | Lymphocytes | performed at [facility];[address] | [address] | LAB | | | | [address];[place] | | | | | | [address] | | | | + + + + + + | Absolute | 0.11Comment: Testing | 0.00 - 0.80 | EXTERNAL | | | Monocytes | performed at [facility];[address] | [address] | LAB | | | | [address];[place] | | | | | | [address] | | | | + + + + + + | Platelet | ADEQUATEComment: Testing | | EXTERNAL | | | Estimate | performed at [facility];[address] | | LAB | | | | [address];[place] | | | | | | [address] | | | | + + + + + + | RBC | RBC AND PLT MORPHOLOGY | | EXTERNAL | | | Morphology | APPEAR NORMALComment: | | LAB | | | | Testing performed at | | | | | | [facility];[address] [facility] | | | | | | [address];[place] [address] | | | | + + + [...] | LAB | | | | [address];[place] | | | | | | [address] | | | | + + + + + + | K | 6.9 ()Comment: RESULT | 3.5 - 4.9 | EXTERNAL | | | | READ BACK BY:LORRAINE Rousseau AT | mmol/L | LAB | | | | 2057 BY JSSTesting | | | | | | performed at [facility];[address] | | | | | | [address];[place] | | | | | | [address] | | | | + + + + + + | Cl | 102Comment: Testing | 99 - 109 mmol/L | EXTERNAL | | | | performed at [facility];[address] | | LAB | | | | [address];[place] | | | | | | [address] | | | | + + + + + + | CO2 | 17 (L)Comment: Testing | 23 - 32 mmol/L | EXTERNAL | | | | performed at [facility];[address] | | LAB | | | | [address];[place] | | | | | | [address] | | | | + + + + + + | Anion Gap | 18Comment: Testing | 5 - 20 mmol/L | EXTERNAL | | | | performed at [facility];[address] | | LAB | | | | [address];[place] | | | | | | [address] | | | | + + + + + + | Glucose, | 205 (H)Comment: Testing | 65 - 99 mg/dL | EXTERNAL | | | Fasting | performed at [facility];[address] | | LAB | | | | [address];[place] | | | | | | [address] | | | | + + + + + + | BUN | 87 (H)Comment: Testing | 8 - 25 mg/dL | EXTERNAL | | | | performed at [facility];[address] | | LAB | | | | [address];[place] | | | | | | [address] | | | | + + + + + + | Creatinine | 10 (H)Comment: Testing | 0.70 - 1.30 | EXTERNAL | | | | performed at [facility];[address] | mg/dL | LAB | | | | [address];[place] | | | | | | [address] | | | | + + + + + + | BUN/Creatin | 9Comment: Testing | | EXTERNAL | | | ine Ratio | performed at [facility];[address] | | LAB | | | | [address];[place] | | | | | | [address] | | | | + + + + + + | Calcium | 7.7 (L)Comment: Testing | 8.5 - 10.5 | EXTERNAL | | | | performed at [facility];[address] | mg/dL | LAB | | | | [address];[place] | | | | | | [address] | | | | + + + + + + | Protein, | 7.8Comment: Testing | 6.3 - 8.2 g/dL | EXTERNAL | | | Total | performed at [facility];[address] | | LAB | | | | [address];[place] | | | | | | [address] | | | | + + + + + + | Albumin | 3.6Comment: Testing | 3.6 - 5.0 g/dL | EXTERNAL | | | | performed at [facility];[address] | | LAB | | | | [address];[place] | | | | | | [address] | | | | + + + + + + | Globulin | 4.2Comment: Testing | 1.3 - 4.9 g/dL | EXTERNAL | | | | performed at [facility];[address] | | LAB | | | | [address];[place] | | | | | | [address] | | | | + + + + + + | A/G Ratio | 0.9 (L)Comment: Testing | 1.0 - 2.4 | EXTERNAL | | | | performed at [facility];[address] | | LAB | | | | [address];[place] | | | | | | [address] | | | | + + + + + + | Bilirubin | 0.6Comment: Testing | 0.1 - 1.5 mg/dL | EXTERNAL | | | Total | performed at [facility];[address] | | LAB | | | | [address];[place] | | | | | | [address] | | | | + + + + + + | ALP, | 85Comment: Testing | 35 - 115 U/L | EXTERNAL | | | External | performed at [facility];[address] | | LAB | | | | [address];[place] | | | | | | [address] | | | | + + + + + + | AST | 25Comment: Testing | 10 - 45 U/L | EXTERNAL | | | | performed at [facility];[address] | | LAB | | | | [address];[place] | | | | | | [address] | | | | + + + + + + | ALT | 37Comment: Testing | 10 - 65 U/L | EXTERNAL | | | | performed at [facility];[address] | | LAB | | | | [address];[place] | | | | | | [address] | | | | + + + [...] | | at [facility];[address] [place] [address] | | | | | | [facility];[place] [address] | | | | + + [...]
--- OUTSIDE RECORDS SUMMARY | ~2019-05-20 | XMS | Encounter Summary ---
Demographics + + + | Address | [address] | | | [place] [address] | + + + | Home Phone [...] Team Providers + +------+ + | Care Jack Prizer Name | Role | Phone | + +------+ + PCP | Unavailable | + +------+ + Encounter Details +--------+ + + + + | Date | Type | Department | Care Team | Description | +--------+ + + + + | 04/29/ | Hospital | [facility] | Conversion | | | 2014 | Encounter | [facility] | Transaction, | | | | | OUTPATIENT | Provider Unknown | | | | | PROCEDURES [address] | | | | | | [address] | (Fax) | | | | | [place], [place] | | | | | | [address] | | | | | | [phone] | | | +--------+ + + + [...]
--- OUTSIDE RECORDS SUMMARY | ~2019-05-20 | XMS | Clinical Summary ---
Demographics + + + | Address | [address] | | | [place] [address] | + + + | Home Phone | | + + + | Preferred Language | Unknown | + + + | Marital Status | | + + + | Yarsani Affiliation | [id number] | + + + | Race | Unknown | + + + | Ethnic Group | Unknown | + + + Author + + + | Author | [facility] (Historical as of | | | 02-07-19) | + + + | Organization | [facility] (Historical as of | | | 02-07-19) [...] Team Providers + +------+ + | Care Spray Drier Operator Helper Name | Role | Phone [...] + | Mother | | | from [place] | | | | (Age | | [...] Stent | Right: | | | | [id number] | | 40-09[birth year]11[birth year]2016Implanted: | | | | | | / | | 09/11/2016 by Jimenez Garnica, | | [employer] | | | | /[id number] | | PhD (Quantity not on | | vian | | | | 669 | | file) | | | | | | | + +-------+--------+ +--------+--------+--------+ | Konglver 14 X | Stent | Right: | | | | [id number] | | 60-09[birth year]11/2016Implanted: | | | | | | / | | 09/11/2016 by Jimenez Garnica, | | [employer] | | | | /[id number] | | PhD (Quantity not on | | vian | | | | 524 | | file) | | | | | | | + +-------+--------+ +--------+--------+--------+ | Hemodialysis Catheter 12x20 | | Left: | | | 10/05/ | [id number] | | Curved - Sn/AImplanted: Qty: | [...] | Left: | | | 02/22/ | [id number] | | Pre Cvd Fdc Std | | Neck | | | 2012 | 0 | | Hemosplit 14.5 24cm - | | | | | | /[id number] | | [id number]: Qty: 1 on | | | | [...] +------+-------+ + | MEDICARE | MEDICA | [id number] | | | [address] | | | RE | | | | [place] [address] | | | IP-OP | | | | | + +--------+ +------+-------+ + | MEDICAID | MEDICA | [id number] | | | [address] | | | [place] | | | | [place] | | | [place] | | | | [phone] | + +--------+ +------+-------+ + | [facility] | YELLOW | [id number] | | | | | PLANS | [...] | Self | [birth year] | Home: | [address] | | | al/Fam | | 1965 | [phone] [place] | | | juan | | | [phone] | [phone] | + +--------+ +--------+ + +
--- OUTSIDE RECORDS SUMMARY | ~2019-05-20 | XMS | Encounter Summary ---
Demographics + + + | Address | [address] | | | [place] [address] | + + + | Home Phone [...] Team Providers + +------+ + | Care Storyboard Artist Name | Role | Phone | + +------+ + | Andry Deng DO | PCP | | + +------+ + Encounter Details +--------+ + + + + | Date | Type | Department | Care Team | Description | +--------+ + + + + | 03/29/ | Orders Only | [facility] | Conversion | | | 2013 | | INFECTIOUS DISEASE | Transaction, | | | | | [address] | Provider Unknown | | | | | [place], [place] | [phone] | | | | | [address] | | | | | | [phone] | | | +--------+ + + + [...]
[~2019-05-20 14:23] MED LIST changes: +CIPRODEX OTIC7.5 ML AD
--- OUTSIDE RECORDS SUMMARY | 2019-05-20 15:48 | XMS ---
PreManage Notification: CAROL STANTON Security Switchboard Clerk Events No recent Security Events currently on file CRITERIA MET - Group Notification - [facility] - Has Care Guidelines CARE PROVIDERS ROSA LOFTON [facility] 01/24/2018-Current PHONE: Unknown Reinaldo has no Care Guidelines for this patient. Care History Medical/Surgical 02/13/2018 [facility] - PATIENT IS FOLLOWING VERY CLOSELY WITH [facility] XRAY TECH HARDIK WATSON. - PLEASE CALL SHIRLEY AT [phone] IF PATIENT IS SEEN IN THE ED. [...] 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 -Patient receives INR draws from [facility]. -Patient does have concerns with patient [...] please contact Community Health Worker Betzy at [phone]. These are guidelines and the provider should exercise clinical judgment when providing care. E.D. VISIT COUNT (12 MO.) 6 NEISHA Blakely TOTAL 6 NOTE: Visits indicate total known visits. ED/UCC VISIT TRACKING (12 MO.) 05/20/2019 15:45 [facility] [place] TYPE: Emergency COMPLAINT: - BUMP ON ARM 12/10/2018 19:03 [facility] [place] TYPE: Emergency COMPLAINT: - WOUND CHECK DIAGNOSES: - Allergy status to penicillin - Dependence on renal dialysis - Unspecified asthma, uncomplicated - Other nursing home (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 - Hypothyroidism, unspecified - End stage renal disease - Allergy status to oth drug/meds/biol subst status - Allergy status to other antibiotic agents status - Personal history of nicotine dependence - 1 Hyp chr kidney disease w stage 5 chr kidney disease or ESRD - Hemorrhage due to vascular prosth dev/grft, init - 1 Type 2 diabetes mellitus w diabetic chronic kidney disease 11/03/2018 21:34 [facility] [place] TYPE: Emergency COMPLAINT: - SOB DIAGNOSES: - adjunct faculty for medical terminology (current) use of anticoagulants - Athscl heart disease of [place] coronary artery w/o ang pctrs - Other world travel counselor (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 - Unspecified asthma with (acute) exacerbation - Shortness of breath - Hyperlipidemia, unspecified - Allergy status to other antibiotic agents status - End stage renal disease - 1 Hyp chr kidney disease w stage 5 chr kidney disease or ESRD - 1 Type 2 diabetes mellitus without complications - Allergy status to oth drug/meds/biol subst status - Dependence on renal dialysis - Allergy status to penicillin 09/18/2018 14:12 [facility] [place] TYPE: Emergency COMPLAINT: - RIGHT ARM PAIN NON INJURY DIAGNOSES: - Personal history of other venous thrombosis and embolism - 1 Hypertensive chronic kidney disease w stg 1-4/unsp chr kdny - Hypothyroidism, unspecified - prison (current) use of systemic steroids - Allergy status to penicillin - End stage renal disease - Unspecified asthma, uncomplicated - Allergy status to oth drug/meds/biol subst status - 1 Type 2 diabetes mellitus w diabetic chronic kidney disease - adjunct faculty for medical terminology (current) use of anticoagulants - Other specified soft tissue disorders - Other world travel counselor (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 - Gastro-esophageal reflux disease without esophagitis - Athscl heart disease of [place] coronary artery w/o ang pctrs - Dependence on renal dialysis - Allergy status to other antibiotic agents status - Presence of coronary angioplasty implant and graft - Chronic kidney disease, unspecified 08/12/2018 07:57 [facility] [place] TYPE: Emergency COMPLAINT: - COUGH DIAGNOSES: - 1 Type 2 diabetes mellitus w diabetic chronic kidney disease - Other world travel counselor (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 - Allergy status to penicillin - Allergy status to oth drug/meds/biol subst status - Bronchitis, not specified as acute or chronic - 1 Hyp chr kidney disease w stage 5 chr kidney disease or ESRD - End stage renal disease - Constipation, unspecified - Cough - Chronic sinusitis, unspecified - prison (current) use of anticoagulants 07/20/2018 17:[address] [facility] [place] TYPE: Emergency COMPLAINT: - R LEG LAC DIAGNOSES: - Gastro-esophageal reflux disease without esophagitis - Athscl heart disease of [place] coronary artery w/o ang pctrs - prison (current) use of anticoagulants - Dependence on renal dialysis - End stage renal disease - Striking against or struck by other objects, init encntr - Allergy status to penicillin - Unspecified asthma, uncomplicated - Other nursing home (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 - Allergy status to other antibiotic agents status - 1 Hyp hrt and chr kdny dis w/o hrt fail, w stg 5 chr kdny/ESR - Hypothyroidism, unspecified - Encounter for immunization - Allergy status to oth drug/meds/biol subst status - 1 Type 2 diabetes mellitus w diabetic chronic kidney disease - Laceration w/o foreign body, right lower leg, init encntr INPATIENT VISIT TRACKING (12 MO.) No inpatient visits to display in this time frame [email or web address]
== END 2019-05-20 15:50 | disposition home or self-care (01) ==
LOC: ED 14:23
DX: I12.0 Hypertensive chronic kidney disease with stage 5 chronic kidney disease or end stage renal disease (principal); E11.22 Type 2 diabetes mellitus with diabetic chronic kidney disease; N18.6 End stage renal disease; Z99.2 Dependence on renal dialysis; M79.89 Other specified soft tissue disorders; I25.10 Atherosclerotic heart disease of native coronary artery without angina pectoris; K21.9 Gastro-esophageal reflux disease without esophagitis; E03.9 Hypothyroidism, unspecified; Z87.891 Personal history of nicotine dependence; Z88.8 Allergy status to other drugs, medicaments and biological substances; Z88.1 Allergy status to other antibiotic agents; Z88.0 Allergy status to penicillin; Z79.899 Other long term (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; Z79.01 Long term (current) use of anticoagulants
CPT/HCPCS: 99283

== ENCOUNTER 2019-08-07 18:49 | Emergency (ER) | payer MEDICARE, OTHER ==
[~2019-08-07] VITALS: Ht 170.2 cm; Wt 77.9 kg
--- OUTSIDE RECORDS SUMMARY | 2019-08-07 18:52 | XMS ---
PreManage Notification: CAROL STANTON Security Hydro Technician Events No recent Security Events currently on file CRITERIA MET - Group Notification - History of Sepsis Dx CARE PROVIDERS ROSA LOFTON [facility] 01/24/2018-Current PHONE: Unknown Name [facility]/[place] 05/22/2019-Current PHONE: [phone] Reinaldo has no Care Guidelines for this patient. Care History Medical/Surgical 02/13/2018 [facility] - PATIENT IS FOLLOWING VERY CLOSELY WITH [facility] REGULATORY AFFAIRS COORDINATOR HARDIK WATSON. - PLEASE CALL SHIRLEY AT [phone] IF PATIENT IS SEEN IN THE ED. - PATIENT HAS A LONG EXTENSIVE HX WITH METHAMPHETAMINE USAGE. - PHYSICIAN DISCRETION- TOX SCREEN BEFORE TREATMENT. Care Recommendation: - USE EXTREME CAUTION IN GIVING NARCOTICS TO THIS PATIENT. - Avoid Discharge Narcotic prescriptions if at all possible. Please use clinical judgement. 02/04/2018 [facility] - PATIENT IS CURRENTLY ON COUMADIN [...] all possible. Please use clinical judgement. 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 -[facility] -Patient does have concerns with patient memory. Care Recommendation: This patient has had 5 or more Emergency Department visits in the last 12 months. Patient requires education on the scope and purpose of the ED as an acute care provider not a Primary Care Provider and should not be utilized for chronic conditions. If patient returns to ED please contact Community Health WorkerBetzy at [phone]. These are guidelines and the provider should exercise clinical judgment when providing care. E.D. VISIT COUNT (12 MO.) 6 [facility] TOTAL 6 NOTE: Visits indicate total known visits. ED/UCC VISIT TRACKING (12 MO.) 08/07/2019 18:49 [facility] TYPE: Emergency COMPLAINT: - ARM BLEED 05/20/2019 15:45 [facility] [place] TYPE: Emergency COMPLAINT: - BUMP ON ARM DIAGNOSES: - Gastro-esophageal reflux disease without esophagitis - 1 Hyp chr kidney disease w stage 5 chr kidney disease or ESRD - Athscl heart disease of [place] coronary artery w/o ang pctrs - Allergy status to penicillin - Hypothyroidism, unspecified - Allergy status to oth drug/meds/biol subst status - terminal superintendent (current) use of anticoagulants - End stage renal disease - 1 Hyp chr kidney disease w stage 5 chr kidney disease or ESRD - Allergy status to other antibiotic agents status - Dependence on renal dialysis - Personal history of nicotine dependence - Other specified soft tissue disorders - 1 Type 2 diabetes mellitus w diabetic chronic kidney disease - Other director long term care (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 12/10/2018 19:03 [facility] [place] TYPE: Emergency COMPLAINT: - WOUND CHECK DIAGNOSES: - Allergy status to penicillin - Dependence on renal dialysis - Unspecified asthma, uncomplicated - Other prison (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 - Hypothyroidism, unspecified - [...] TYPE: Emergency COMPLAINT: - SOB DIAGNOSES: - retirement (current) use of anticoagulants - Athscl heart disease of [place] coronary artery w/o ang pctrs - Other director long term care (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 - Unspecified asthma with [...] 1-4/unsp chr kdny - Hypothyroidism, unspecified - retirement (current) use of systemic steroids - Allergy status to penicillin - End stage renal disease - Unspecified asthma, uncomplicated - Allergy status to oth drug/meds/biol subst status - 1 Type 2 diabetes mellitus w diabetic chronic kidney disease - retirement (current) use of anticoagulants - Other specified soft tissue disorders - Other prison (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 - Gastro-esophageal reflux disease without esophagitis - Athscl heart disease of [place] coronary artery w/o ang pctrs - Dependence on renal dialysis - Allergy status to other antibiotic agents status - Presence of coronary angioplasty implant and graft - Chronic kidney disease, unspecified 08/12/2018 07:[address] [facility] [place] TYPE: Emergency COMPLAINT: - COUGH DIAGNOSES: - 1 Type 2 diabetes mellitus w diabetic chronic kidney disease - Other prison (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 - Allergy status to penicillin - Allergy status to oth drug/meds/biol subst status - Bronchitis, not specified as acute or chronic - 1 Hyp chr kidney disease w stage 5 chr kidney disease or ESRD - End stage renal disease - Constipation, unspecified - Cough - Chronic sinusitis, unspecified - retirement (current) use of anticoagulants INPATIENT VISIT TRACKING (12 MO.) No inpatient visits to display in this time frame [id number]
== END 2019-08-07 20:01 | disposition home or self-care (01) ==
LOC: ED 18:49
DX: T82.838A Hemorrhage due to vascular prosthetic devices, implants and grafts, initial encounter (principal); I12.0 Hypertensive chronic kidney disease with stage 5 chronic kidney disease or end stage renal disease; N18.6 End stage renal disease; E11.22 Type 2 diabetes mellitus with diabetic chronic kidney disease; I25.10 Atherosclerotic heart disease of native coronary artery without angina pectoris; E03.9 Hypothyroidism, unspecified; K21.9 Gastro-esophageal reflux disease without esophagitis; Z88.8 Allergy status to other drugs, medicaments and biological substances; Z88.0 Allergy status to penicillin; Z88.1 Allergy status to other antibiotic agents; Z79.899 Other long term (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; Z79.01 Long term (current) use of anticoagulants
CPT/HCPCS: 99283

== ENCOUNTER 2019-12-30 15:11 | Emergency (ER) | payer MEDICARE, OTHER ==
[~2019-12-30] VITALS: Ht 170.2 cm; Wt 83.9 kg
--- OUTSIDE RECORDS SUMMARY | ~2019-12-30 | XMS | Encounter Summary ---
Demographics + + + | Address | [address] | | | [place] [address] | + + + | Home Phone | | + + + | Preferred Language | Unknown | + + + | Marital Status | Unknown | + + + | Orthodoxy Affiliation | 1076 | + + + | Race | Unknown | + + + | Ethnic Group | Unknown | + + + Author + + + | Author | [facility] | | | and [place] | + + + | Organization | [facility] | | | and [...] Team Providers + +------+ + | Care Clinical Cytogenetics Director Name | Role | Phone | + +------+ + PCP | Unavailable | + +------+ + Encounter Details +--------+ + + + + | Date | Type | Department | Care Team | Description | +--------+ + + + + | 02/09/ | Hospital | [facility] | Oskar Meyer MD | | | 2014 | Encounter | [facility] | [address] | | | | | [address] | [place], [place] | | | | | [place], [place] | [address] | | | | | [address] | [phone] | | | | | [phone] | | | +--------+ + + + [...] 2 puffs into | | 0 | 10/29/19 | | | mcg/puff inhaler | the [...] for gout. | | | 12 | | | tablet | Increase to 2 [...] | Daily. | | | 12 | | + [...] once or | | | 12 | | | 0.1 % lotion | twice a day | | | | | + + + +---------+ + + | Blood Glucose | Use as directed by | | 0 | 03/07/20 | | | Monitoring Suppl | physician | | | 12 | | | (CONTOUR BLOOD | | | | | | | GLUCOSE SYSTEM) GORGE | | | | | | + + + +---------+ + + | ergocalciferol | Take 50,000 Units by | | 0 | 03/07/20 | | | (VITAMIN D-2) 50,000 | mouth Once a week. | | | 12 | | | units capsule | | | [...] a day | | | 12 | | | ol (ADVAIR DISKUS) | for [...] | | 14 | | | ol (ADVAIR, WIXELA | times daily. | | | | [...] affected areas | | | 12 | | | | three times a day [...] hours if | | | 12 | | | tablet | needed. May cause | | | | | | | drowsiness. | | | | | + + + +---------+ + + | lidocaine | Apply a small amount | | 0 | 03/07/20 | | | (XYLOCAINE JELLY) 2% | to affected area | | | 12 | | | jelly | | | | | | + + + +---------+ + + | metformin | Take 2-1/2 tablets | | 0 | 03/07/20 | | | (GLUCOPHAGE) 1000 MG | by mouth every | | | 12 | | | tablet | evening with food [...] every evening. | | | 12 | | + [...] | Daily. | | | 12 | | | tablet | | | | | | + + + +---------+ + + documented as of this encounter H&P Notes Teresita Toure ARNP - 02/09/2014 7:12 AM PDTFormatting of this note might be different f rom the original. H&P by DARRELL Medellin at 02/09/14711 Author: DARRELL Medellin Service: Vascular Surgery Author Type: Advanced Registered N toney Practitioner Filed: 02/09/14711 Date of Service: 02/09/14711 Status: Signed Furnace Utility Operator: DARRELL Medellin (Advanced Registered Nurse Practitioner) [facility] Service: Vascular Surgery Pre-Operative History & Physical DIAGNOSIS: ESRD INDICATION: SAME PROCEDURE: Right arm fistula creation CHIEF COMPLAINT: Need for hemodialysis access History Obtained From: patient HISTORY OF PRESENT ILLNESS The patient is a 48 y.o. male with significant past medical history of ESRD, HTN, IVDU, and DVT who presents with a need for new fistula creation. Currently dialyzing via tunnel karl ter. Had a previous basilic vein transposition which clotted off due to resistant outflow ob struction. We performed a venogram to evaluate for outflow obstruction prior to fistula crea tion on the right arm which revealed no obstruction therefore patient would like to proceed with right arm fistula creation REVIEW OF SYSTEMS Review of Systems Comprehensive ROS performed and pertinent items described in the HPI. Past Medical History Diagnosis Date Hyperlipidemia Hypertension Thyroid disease Anemia Abdominal pain, right upper quadrant 04/13/2012 Dialysis patient GI bleed 04/30/2012 from coumadin Neuromuscular disorder neuropathy Walker as ambulation aid Gout Asthma pt not using inhaler any more, no symptoms DVT (deep venous thrombosis) x3 AV fistula lt arm Knee pain, right 07/06/2012 MSSA (methicillin susceptible Staphylococcus aureus) infection 04/11/2012 Anemia due to blood loss 04/30/2012 Amphetamine and other psychostimulant dependence, continuous 04/02/2012 Hyperphosphatemia 05/24/2012 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 Rash and nonspecific skin eruption 04/03/2012 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 Past Surgical History Procedure Laterality Date Colonoscopy with egd 05/01/2012 Procedure: COLONOSCOPY W/ EGD; Surgeon: John Singleton MD; Location: [facility]COPY; Se rvice: Gastroenterology; Laterality: N/A; Av fistula placement 05/06/2012 Procedure: AV FISTULA; Surgeon: Oskar Meyer MD; Location: [facility] MAIN OR; Service: Vascul ar; Laterality: Left; Left arm possible right Unlisted procedure arthroscopy shoulder rt , ligaments Knee arthroscopy 07/07/2012 Procedure: KNEE - ARTHROSCOPY; Surgeon: Favio Raza MD; Location: [facility] MAIN OR; ervice: Orthopedics; Laterality: Right; After 1530 Catheter removal 07/07/2012 Procedure: DIALYSIS CATHETER REMOVAL; Surgeon: Oskar Meyer MD; Location: [facility] BEDSIDE [place] OCEDURE; Service: General; Laterality: Right; perm cath Dialysis fistula creation 07/07/2012 Procedure: DIALYSIS CATHETER INSERTION; Surgeon: Oskar Meyer MD; Location: [facility] BEDSIDE PROCEDURE; Service: General; Laterality: Left; temporary dialysis catheter Av fistula repair 07/11/2012 Procedure: AV FISTULA GRAFT REPAIR/REVISION; Surgeon: Oskar Meyer MD; Location: [facility]; Service: Vascular; Laterality: Left; Superficialization of brachiobasilic fistula and right IJ perm cath insertion Dialysis fistula creation 07/11/2012 Procedure: DIALYSIS CATHETER INSERTION; Surgeon: Oskar Meyer MD; Location: [facility] OR; Service: Vascular; Laterality: Left; removed dialysis catheter from left neck and placed new on in left chest, attempted in right neck but unable to place Allergies Allergen Reactions Lisinopril Other (See Comments) "makes me sweat and knocked me out" Penicillins Other (See Comments) Unknown 10/08/12: Patient tolerated Ceftriaxone during previous admissions. No current facility-administered medications on file prior to encounter. Current Outpatient Prescriptions on File Prior to Encounter Medication Sig Dispense Refill acetaminophen (TYLENOL) 325 MG tablet Take 650 mg by mouth every 6 (six) hours as neede d. Indications: Pain albuterol (ACCUNEB) 1.25 MG/3ML nebulizer solution Take 3 mLs by nebulization every 4 ( four) hours as needed for Wheezing. 75 mL 0 albuterol (PROVENTIL HFA) 108 (90 BASE) MCG/ACT inhaler Inhale 2 puffs into the lungs e very 4 (four) hours as needed for Wheezing. 1 Inhaler 1 allopurinol (ZYLOPRIM) 100 MG tablet Take 100 mg by mouth daily. Indications: Primary G out amLODIPine (NORVASC) 10 MG tablet Take 10 mg by mouth daily. b complex-vitamin c-folic acid (NEPHRO-THU) 0.8 MG TABS Take 1 tablet by mouth daily. carvedilol (COREG) 3.125 MG tablet Take 3.125 mg by mouth 2 (two) times daily with meal s. Cholecalciferol 2000 UNITS TABS Take 1 tablet by mouth daily. doxycycline (DORYX) [address] capsule Take 100 mg by mouth 2 (two) times daily. fluticasone-salmeterol (ADVAIR DISKUS) 250-50 MCG/DOSE Inhale 1 puff into the lungs 2 ( two) times daily. 60 each 0 furosemide (LASIX) 20 MG tablet Take 20 mg by mouth daily. levothyroxine (SYNTHROID) 75 MCG tablet Take 75 mcg by mouth every morning before break fast. Indications: Underactive Thyroid loperamide (IMODIUM) 2 MG capsule Take 2 mg by mouth 4 (four) times daily as needed. Indications: Diarrhea montelukast (SINGULAIR) 10 MG tablet Take 1 tablet by mouth nightly. 30 tablet 0 RENVELA 800 MG tablet take 3 tablets by mouth three times a day WITH MEALS AND 1 TABLET WITH SNACKS 300 tablet 1 sevelamer (RENVELA) 800 MG tablet Take 2,400 mg by mouth 3 (three) times daily with tarun ls. sevelamer (RENVELA) 800 MG tablet Take 800 mg by mouth as needed. With snacks sodium bicarbonate 650 MG tablet Take 1,300 mg by mouth 2 (two) times daily. Family History Problem Relation Age of Onset Heart disease Mother Heart disease Father Diabetes Father Cancer Father colon cancer History Social History Marital Status: Spouse Name: Shyanne Number of Children: N/A Years of Education: N/A Occupational History Not on file. Social History Main Topics Smoking status: Former Smoker -- 1.00 packs/day for 23 years Smokeless tobacco: Never Used Alcohol Use: No Drug Use: No Comment: last used marijuana on 04/29/12, quit methaamphetamine in mar 2012 after ARF Sexually Active: Not on file Other Topics Concern Not on file Social History Narrative , LIVES WITH . HAS NO BIOLOGICAL KIDS; 2 STEP KIDS. CURRENTLY UNEMPLOYED, BEFOR E WORKED AT [email or web address]. Quit METHAMPHETAMINES PER PATIENT after t he ARF in mar 2012. FATHER HAS COLON CANCER, HEART DISEASE, MOTHER 15 YEARS AGO. NO FH KIDNEY PROB LEMS. PHYSICAL EXAM Vital Signs: There were no vitals taken for this visit. Physical Exam Vitals reviewed. Constitutional: Patient appears well-developed and well-nourished. HENT: Head: Normocephalic and atraumatic. Mouth/Throat: Oropharynx is clear and moist. Cardiovascular: Normal rate and regular rhythm. Pulmonary/Chest: Effort normal and breath sounds normal. Abdominal: Soft. Bowel sounds are normal. Musculoskeletal: Normal range of motion. Neurological: Patient is alert and oriented to person, place, and time. Skin: Skin is warm and dry. Vascular: Palp radial and brachial pulses on right arm. Clotted left AVF DATA CBC: Lab Results Component Value Date WBC 6.3 02/08/2014 RBC 3.93* 02/08/2014 HGB 12.3* 02/08/2014 HCT 36.0* 02/08/2014 MCV 91.7 02/08/2014 MCH 31.2 02/08/2014 MCHC 34.1 02/08/2014 RDW 49.4 02/08/2014 PLT 249 02/08/2014 MPV 6.7 02/08/2014 DIFFTYPE AUTOMATED 02/08/2014 BMP: Lab Results Component Value Date NA 138 02/08/2014 K 3.7 02/08/2014 CL 96* 02/08/2014 CO2 35* 02/08/2014 ANIONGAP 11 02/08/2014 GLUF 176* 02/08/2014 BUN 12 02/08/2014 CREATININE 4.53* 02/08/2014 BCR 3 02/08/2014 CA 8.2* 02/08/2014 CA 6.1* 04/02/2012 EGFR 15* 02/08/2014 PT/INR: Lab Results Component Value Date INR 0.9 02/08/2014 PTT: Lab Results Component Value Date APTT 28 12/23/2013 [APTT} PROBLEM LIST Patient Active Problem List Diagnosis Vitamin D deficiency Secondary hyperparathyroidism (of renal origin) Hypothyroidism Hypoalbuminemia Diabetes mellitus with ESRD (end-stage renal disease) Obesity (BMI 30-39.9) HTN (hypertension) ESRD (end stage renal disease) on dialysis Anemia of chronic kidney failure Gout PUD (peptic ulcer disease) Malnutrition of moderate degree SOB (shortness of breath) Chronic obstructive asthma with exacerbation Hyperkalemia Steroid-induced hyperglycemia ASSESSMENT & PLAN 1. Patient is a 48 y.o. male with above specified procedure planned. 2. Procedure options, risks, benefits and alternatives reviewed with patient who express( es) understanding. Any and all questions were answered to their satisfaction. Primary Care Physician: [facility] DARRELL Medellin 02/08/2014 *CORE MEASURES REMINDER: If the patient has a known or suspected infection prior to surger y, please add diagnosis to the problem list (consider: Infection 136.9). documented in this encounter Miscellaneous Notes Op Note - Oskar Meyer MD - 02/09/2014 8:27 AM PDTFormatting of this note might be differen t from the original. Op Note by Oskar Meyer MD at 02/09/14826 Author: Oskar Meyer MD Service: Vascular Surgery Author Type: Physician Filed: 02/09/1429 Date of Service: 02/09/14826 Status: Signed Furnace Utility Operator: Oskar Meyer MD (Physician) [facility] Service: Vascular Surgery Operative Note Pre-operative Diagnosis: ESRD and need for new snf access Post-operative Diagnosis: Same Procedure(s): Right arm brachiobasilic fistula creation Surgeon: Oskar Meyer MD City Director(s): DARRELL Medellin Anesthesia: Monitor Anesthesia Care and Local anesthesia Estimated Blood Loss: Less Than 50 ml Other: IV Fluids: 200 ml Indications: See pre-operative history and physical. Findings: Artery mildly calcified. Vein of good quality. After anastomosis, good thrill in fistula. Dopplerable radial signal at end of case. Complications: None apparent Description of Procedure: Patient was properly identified and brought to the operating deandre m. Patient was placed supine on the operating table and patient underwent Monitor Anesthesia Care and Local anesthesia. Patient'sright arm was then prepped and draped in the usual joshua rile fashion. Local anesthetic was then given to the antecubital fossa and a transverse inci quique was then made. First the basilic vein was identified. Branches of the basilic vein were identified and ligated using 3-0 silk sutures. Once the basilic vein was freed, the brachia l artery was next identified. The brachial artery was dissected. Patient was then given 3000 units of IV heparin. After 3 minutes an end-to-side anastomosis was created with the basili c vein onto the brachial artery using 6-0 Prolene sutures in a running fashion. After comple tion of the anastomosis there was a strong thrill in the fistula. The patient had a dopplera ble signal of the radial artery at the end of the case. The wound was then irrigated and hem ostasis was then assured. The deep dermal tissue was then closed with 3-0 Vicryl and the ski n was then closed with 4-0 Monocryl in a subcuticular fashion. Mastisol and Steri-Strip clos ures were then placed and a sterile dressing was then applied. At the end of the case spong e, needle, and instrument counts were correct x2. There were no apparent complications. Condition: Stable Oskar Meyer MD 02/09/2014 documented in this encoun ter Plan of Treatment Not on filedocumented as of this encounter Procedures + +--------+ + + + | Procedure Name | Priori | Date/Time | Associated Diagnosis | Comments | | | ty | | | | + +--------+ + + + | POC GLUCOSE | Routin | 02/09/2014 | | Results for this | | | e | 8:43 AM | | procedure are in the | | | | PDT | | results section. | + +--------+ + + + | POC GLUCOSE | Routin | 02/09/2014 | | Results for this | | | e | 7:08 AM | | procedure are in the | | | | PDT | | results section. | + +--------+ + + + | TYPE AND SCREEN | Routin | 02/09/2014 | | Results for this | | | e | 6:52 AM | | procedure are in the | | | | PDT | | results section. | + +--------+ + + + documented in this encounter Results POC Glucose (02/09/2014 8:43 AM PDT) + + + + + + | Component | Value | Ref Range | Performed | Pathologist | | | | | At | Signature | + + + + + + | Glucose, | 99Comment: Testing | 65 - 99 mg/dL | EXTERNAL | | | Fingerstick | performed at [facility] | | LAB | | | | [address];[place] | | | | | | [address] | | | | + + + + + + + + | Specimen | + + | | + + + +---------+ + + | Performing | Address | City/State/Zipcode | Phone Number | | Organization | | | | + +---------+ + + | EXTERNAL LAB | | | | + +---------+ + + POC Glucose (02/09/2014 7:08 AM PDT) + + + + + + | Component | Value | Ref Range | Performed | Pathologist | | | | | At | Signature | + + + + + + | Glucose, | 91Comment: Testing | 65 - 99 mg/dL | EXTERNAL | | | Fingerstick | performed at [facility] [place];[address] | | LAB | | | | [address];[place] | | | | | | [address] | | | | + + + + + + + + | Specimen | + + | | + + + +---------+ + + | Performing | Address | City/State/Zipcode | Phone Number | | Organization | | | | + +---------+ + + | EXTERNAL LAB | | | | + +---------+ + + Type and Screen (02/09/2014 6:52 AM PDT) + + + + + + | Component | Value | Ref Range | Performed | Pathologist | | | | | At | Signature | + + + + + + | ABO Rh | O POSITIVE | | EXTERNAL | | | | | | LAB | | + + + + + + | ABO Rh | Testing performed at | | EXTERNAL | | | | [facility] | | LAB | | | | [address];[place] [address] | | | | + + + + + + | Antibody | NEGATIVE | | EXTERNAL | | | Screen | | | LAB | | + + + + + + | Antibody | Testing performed at | | EXTERNAL | | | Screen | [facility] | | LAB | | | | [address];[place] [address] | | | | + + + + + + | BB BAND | [id number] | | EXTERNAL | | | | | | LAB | | + + + + + + | BB BAND | Testing performed at | | EXTERNAL | | | | [facility] | | LAB | | | | [address];[place] [address] | | | | + + + + + + | Antibody ID | ANTI MEENA NOT DETECTED | | EXTERNAL | | | | AT THIS TIME | | LAB | | + + + + + + | Antibody ID | Testing performed at | | EXTERNAL | | | | [facility] | | LAB | | | | [address];[place] [address] | | | | + + + + + + | AMANDA | POSITIVE | | EXTERNAL | | | | | | LAB | | + + + + + + | AMANDA | Testing performed at | | EXTERNAL | | | | [facility] | | LAB | | | | [address];[place] [address] | | | | + + + + + + | AMANDA IgG | POSITIVE | | EXTERNAL | | | | | | LAB | | + + + + + + | AMANDA IgG | Testing performed at | | EXTERNAL | | | | [facility] | | LAB | | | | [address];[place] [address] | | | | + + + + + + | AMANDA | NEGATIVE | | EXTERNAL | | | COMPLEMENT | | | LAB | | + + + + + + | AMANDA | Testing performed at | | EXTERNAL | | | COMPLEMENT | [facility] | | LAB | | | | [address];[place] [address] | | | | + + + + + + + + | Specimen | + + | Blood specimen | | (specimen) | + + + +---------+ + + | Performing | Address | City/State/Zipcode | Phone Number | | Organization | | | | + +---------+ + + | EXTERNAL LAB | | | | + +---------+ + + documented in this encounter Visit Diagnoses Not on filedocumented in this encounter
--- OUTSIDE RECORDS SUMMARY | ~2019-12-30 | XMS | Encounter Summary ---
Demographics + + + | Address | [address] | | | [place] [address] | + + + | Home Phone | | + + + | Preferred Language | Unknown | + + + | Marital Status | Unknown | + + + | Judaism Affiliation | 1076 | + + + | Race | Unknown | + + + | Ethnic Group | Unknown | + + + Author + + + | Author | Located Within [facility] | | | and [place] | + + + | Organization | Located Within [facility] | | | and [...] Team Providers + +------+ + | Care Pick Up And Delivery Driver Name | Role | Phone | + +------+ + PCP | Unavailable | + +------+ + Encounter Details +--------+ + + + + | Date | Type | Department | Care Team | Description | +--------+ + + + + | 11/09/ | Hospital | [facility] | Conversion | End stage renal | | 2014 | Encounter | [facility] OP | Transaction, | disease (HCC); Other | | | | [address] | Provider Unknown | complications due | | | | [place], [place] | [phone] | to other vascular | | | | [address] | | device, implant, and | | | | [phone] | Uriel Sawyer, | graft (HCC) | | | | | [address] | | | | | | [place], [place] | | | | | | [address] | | | | | | | | +--------+ + + + [...] | | 14 | | | ol (ADVAIRDAVIDXELA | times daily. | | | | | | INHUB) 250-50 | | | | | | | mcg/puff diskus | | | | | | | inhaler | | | | | | + + + +---------+ + + | hydrophilic | Apply a small amount | | 0 | 09/14/20 | | | ointment | to affected [...] tablet by mouth | | 0 | //20 | | | (ATARAX) 25 MG | every 6 hours if | | | 12 | | | tablet | needed. May cause | | | | | | | drowsiness. | | | | | + + + +---------+ + + | lidocaine | Apply a small amount | | 0 | /14/20 | | | (XYLOCAINE JELLY) 2% | [...] Progress Notes Conversion Transaction, Provider Unknown - 11/09/2013 8:31 PM PDTFormatting of this note m ight be different from the original. Nurse Progress Note by Tisha Vaughan RN at 11/09/132030 Author: Tisha Vaughan RN Service: (none) Author Type: Registered Nurse Filed: 11/09/132031 Date of Service: 11/09/132030 Status: Signed Firewall Engineer: Tisha Vaughan RN (Registered Nurse) Meets discharge criteria. Right chest site benign with no ooze or hematoma. Discharge instr uctions given to patient and . All questions answered and understanding stated. Transpor gela via wheelchair to ED lobby for treatment for K 5.[address] Timmons. onver quique Transaction, Provider Unknown - 11/09/2013 8:20 PM PDT Nurse Progress Note by Tisha Vaughan RN at 11/09/132019 Author: Tisha Vaughan RN Service: (none) Author Type: Registered Nurse Filed: 11/09/132019 Date of Service: 11/09/132019 Status: Signed Firewall Engineer: Tisha Vaughan RN (Registered Nurse) Small amount ooze from upper dialysis cath insertion site. Light pressure dressing applied. docume nted in this encounter H&P Notes Bhanu Sawyer MD, MD - 11/10/2013 10:52 AM PDTFormatting of this note might be diffe rent from the original. H&P by Uriel Sawyer MD at 11/10/13 1052 Author: Uriel Sawyer MD Service: Interventional Radiology Author Type: Physician Filed: 11/10/13 1102 Date of Service: 11/10/13 105 Status: Signed Firewall Engineer: Uriel Sawyer MD (Physician) [facility] Service: Interventional Radiology Admission History & Physical Date of Admission: 11/09/2013 Reason for Admission: Clotted left arm fistula and need for continued access for dialysis History Obtained From: patient, chart review CHIEF COMPLAINT: Clotted fistula HISTORY OF PRESENT ILLNESS The patient is a 48 y.o. male with significant past medical history of ESRD on HD with h/o occluded distal left basilic vein in the left brachio basilic fistula last December who present s with Clotted fistula. Needs intervention for continued dialysis. REVIEW OF SYSTEMS Review of Systems - Negative except as noted above. Past Medical History Diagnosis Date Hyperlipidemia Hypertension [...] W/ EGD; Surgeon: John Singleton MD; Location: [facility] ENDOSCOPY; Se rvice: Gastroenterology; Laterality: N/A; Av fistula placement 05/06/2012 Procedure: AV FISTULA; Surgeon: Oskar Meyer MD; Location: [facility] MAIN OR; Service: Vascul ar; Laterality: Left; Left arm possible right Unlisted procedure arthroscopy shoulder rt , ligaments Knee arthroscopy 07/07/2012 Procedure: KNEE - ARTHROSCOPY; Surgeon: Favio Raza MD; Location: [facility] MAIN OR; deboravice: Orthopedics; Laterality: Right; After 1530 Catheter removal 07/07/2012 Procedure: DIALYSIS CATHETER REMOVAL; Surgeon: Oskar Meyer MD; Location: [facility] BEDSIDE [place] OCEDURE; Service: General; Laterality: Right; perm cath Dialysis fistula creation 07/07/2012 Procedure: DIALYSIS CATHETER INSERTION; Surgeon: Oskar Meyer MD; Location: [facility] BEDSIDE PROCEDURE; Service: General; Laterality: Left; temporary dialysis catheter Av fistula repair 07/11/2012 Procedure: AV FISTULA GRAFT REPAIR/REVISION; Surgeon: Oskar Meyer MD; Location: [facility] OR; Service: Vascular; Laterality: Left; Superficialization of brachiobasilic fistula and right IJ perm cath insertion Dialysis fistula creation 07/11/2012 Procedure: DIALYSIS CATHETER INSERTION; Surgeon: Oskar Meyer MD; Location: [facility] OR; Service: Vascular; Laterality: Left; removed dialysis catheter from left neck and placed new on in left chest, attempted in right neck but unable to place Allergies Allergen Reactions Lisinopril Other (See Comments) "makes me sweat and knocked me out" Penicillins Other (See Comments) Unknown 10/08/12: Patient tolerated Ceftriaxone during previous admissions. Prior to Admission medications Medication Sig Start Date End Date Taking? Authorizing Provider albuterol (ACCUNEB) 1.25 MG/3ML nebulizer solution Take 3 mLs by nebulization every 4 (four ) hours as needed for Wheezing. 10/28/13 10/28/14 Yes Karri Huff MD albuterol (PROVENTIL HFA) 108 (90 BASE) MCG/ACT inhaler Inhale 2 puffs into the lungs every 4 (four) hours as needed for Wheezing. 10/28/13 10/28/14 Yes Karri Huff MD albuterol (PROVENTIL) (2.5 MG/3ML) 0.083% nebulizer solution Take 2.5 mg by nebulization ev keira 6 (six) hours as needed. Yes Historical Provider allopurinol (ZYLOPRIM) 100 MG [...] tablet by mouth daily. Yes Historical Provider doxycycline (DORYX) [address] capsule Take 100 mg by mouth 2 (two) times daily. Yes CLARENCE Earl ergocalciferol (DRISDOL) 45107 UNITS capsule Take 50,000 Units by mouth once a week. Yes CLARENCE Earl fluticasone-salmeterol (ADVAIR DISKUS) 250-50 MCG/DOSE Inhale 1 [...] needed. Ind ications: Diarrhea Yes Historical Provider montelukast (SINGULAIR) 10 MG tablet Take 1 tablet by mouth nightly. 10/28/13 10/28/14 Yes Josefina Huff MD omeprazole (PRILOSEC) 40 MG capsule Take 40 mg by mouth daily. Yes Historical Provider sevelamer (RENVELA) 800 MG tablet Take 2,400 mg by mouth 3 (three) times daily with meals. Yes Historical Provider sevelamer (RENVELA) 800 MG tablet Take 800 mg by mouth as needed. With snacks Yes CLARENCE Encarnacion sodium bicarbonate 650 MG tablet Take 1,300 mg by mouth 2 (two) times daily. Yes Histor ical Provider predniSONE (DELTASONE) 20 MG tablet Take 20 mg by mouth daily with breakfast. Historical Provider Family History Problem Relation Age of Onset [...] KIDS. CURRENTLY UNEMPLOYED, BEFOR E WORKED AT [employer] IN [place]. Quit METHAMPHETAMINES PER PATIENT after t he ARF in mar 2012. FATHER HAS COLON CANCER, HEART DISEASE, MOTHER 15 YEARS AGO. NO FH KIDNEY PROBLEMS. PHYSICAL EXAM Vital Signs: Blood pressure 163/77, pulse 99, temperature 99.5 F (37.5 C), temperature source Tempor al, resp. rate 16, height 1.702 m (5' 7"), weight 81.647 kg (180 lb), SpO2 99.00%. Temp: [97.8 F (36.6 C)-99.5 F (37.5 C)] 97.8 F (36.6 C) (11/11 11) BP: (148-179)/(67-85) 163/79 mmHg (11/11 0714) Heart Rate: [94-102] 99 (11/11 11) Resp: [14-20] 16 (11/11 11) SpO2: [98 %-100 %] 100 % (11/09 2321) Height: [170.2 cm (5' 7")-170.2 cm (5' 7.01")] 170.2 cm (5' 7.01") (11/11 11) Weight: [81.647 kg (180 lb)-81.7 kg (180 lb 1.9 oz)] 81.7 kg (180 lb 1.9 oz) (11/11 15) BMI (Calculated): [28.3] 28.3 (11/11 11) General appearance: alert, appears stated age and cooperative Head: Normocephalic, without obvious abnormality, atraumatic Eyes: conjunctivae/corneas clear. PERRL, EOM's intact. Fundi benign. Ears: normal TM's and external ear canals both ears Nose: Nares normal. Septum midline. Mucosa normal. No drainage or sinus tenderness. Throat: lips, mucosa, and tongue normal; teeth and gums normal Neck: no adenopathy, no carotid bruit, no JVD, supple, symmetrical, trachea midline and thy roid not enlarged, symmetric, no tenderness/mass/nodules Lungs: clear to auscultation bilaterally Heart: regular rate and rhythm, S1, S2 normal, no murmur, click, rub or gallop Abdomen: soft, non-tender; bowel sounds normal; no masses, no organomegaly Extremities: extremities normal, atraumatic, no cyanosis or edema and clotted right arm fis riki and left arm fistula. Skin: Skin color, texture, turgor normal. No rashes or lesions Neurologic: Grossly normal DATA PROBLEM LIST Active Problems: * No active hospital problems. * ASSESSMENT & PLAN 48 yr old male with clotted left arm fistula with known occluded distal left basilic vein. He is not a candidate for repeat declotting and would benefit from tunneled dialysis access. We discussed the procedure, risks and options. He agreed to proceed with tunneled catheter option. Moderate Sedation Presedation Assessment completed. ASA Classification: ASA 3: Patient with a severe systemic disease Mallampati Classification: II: Visibility of hard and soft palate, upper portion of tonsil s and uvula Disposition: [facility] Code Status: Prior Primary Care Physician: [facility] URIEL SAWYER MD 11/10/2013 10:53 AM documented i n this encounter Plan of Treatment Not on filedocumented as of this encounter Procedures + +--------+ + + + | Procedure Name | Priori | Date/Time | Associated Diagnosis | Comments | | | ty | | | | + +--------+ + + + | IR PLACEMENT | Routin | 11/09/2013 | | Results for this | | TUNNELED CENTRAL | e | 7:36 PM | | procedure are in the | | VENOUS CATHETER > 5 | | PDT | | results section. | | YEARS | | | | | + +--------+ + + + | US GUIDED VASCULAR | Routin | 11/09/2013 | | Results for this | | ACCESS | e | 7:36 PM | | procedure are in the | | | | PDT | | results section. | + +--------+ + + + | POTASSIUM | Routin | 11/09/2013 | | Results for this | | | e | 6:30 PM | | procedure are in the | | | | PDT | | results section. | + +--------+ + + + | MRSA NAAT | Timed | 11/09/2013 | | Results for this | | | | 6:21 PM | | procedure are in the | | | | PDT | | results section. | + +--------+ + + + documented in this encounter Results IR Placement Tunneled CV Cath (11/09/2013 7:36 PM PDT) + + | Specimen | + + | | + + + + + | Impressions | Performed At | + + + | 1. Sonography of the lower neck veins. 2. Successful | | | placement of a 14.5-Afghan dual-lumen 19-cm tunneled hemodialysis | | | catheter with its tip in the upper portion of the right atrium without | | | incidence. 01046, 25971, 34431 | | + + + + + + | Narrative | Performed At | + + + | [facility] INSERTION 11/09/2013 6:41 | | | PM HISTORY: 48 years. Male. Clotted left arm AV graft 585.6. | | | PROCEDURE: 1. Sonography of the lower neck veins. 2. | | | Sonographic guidance for access into the right external jugular | | | vein. 3. Placement of 19 cm, 14.5-Afghan dual-lumen tunneled | | | palindrome hemodialysis catheter in the right upper chest with its | | | tip in the upper right atrium. MEDICATIONS/RADIATION DOSE: | | | Lidocaine 1% for local anesthesia, Versed zero mg intravenous, | | | Fentanyl 50 mcg intravenous, clindamycin 600 mg intravenous. | | | Radiation dose 0.1 mGy. Fluoroscopy time 0.1 minutes. | | | Intra-procedure sedation time 17 minutes. Appropriate physiologic | | | monitoring, maintenance of adequate conscious sedation and independent | | | detention supervision of the conscious sedation was performed | | | throughout the procedure. FINDINGS: 1. Sonography of the lower | | | neck veins revealed widely patent, compressible right external jugular | | | vein. Right internal jugular vein was thrombosed with prominent lower | | | neck collaterals. 2. Real-time visualization of the needle entry | | | into the right external jugular vein under sonography was noted. | | | Image documenting the same was obtained and placed in patient | | | records. 3. Upper chest radiograph shows dual-lumen, 14.5-Afghan, | | | 19-cm, tunneled dialysis catheter with its tip in the upper portion | | | of the right atrium. PROCEDURE: Informed written consent | | | obtained from the patient after explaining the procedure, risks and | | | alternatives. The patient understood the discussion and expressed a | | | wish to proceed. The appropriate side and site was labeled and | | | initialed as an independent process antecedent to the imaging and | | | intervention, as per protocol at this institution. The patient | | | was placed supine on the x-ray table. Sonography of the lower neck | | | veins revealed widely patent and compressible right jugular vein. | | | Supraclavicular and infraclavicular regions are prepped in the usual | | | sterile fashion. Skin and subcutaneous tissues then infiltrated | | | with 1% lidocaine. Right external jugular vein was accessed using a | | | micropuncture needle and exchanged for a 4-Afghan micropuncture sheath | | | over a 0.018 wire. Skin in the infraclavicular region was | | | infiltrated with 1% lidocaine and a 5-mm skin incision was made. A | | | 14.5-Afghan, dual-lumen, 19-cm tunneled hemodialysis catheter was | | | placed a subcutaneous tunnel using a metallic tunneler. The 4-Afghan | | | sheath was exchanged for a 0.035, 3-mm J-wire with its tip in the | | | right atrium under fluoroscopy guidance. The skin and subcutaneous | | | tract was dilated using at 12 and 14-Afghan facial dilators. A | | | 15-Afghan peel-away sheath was placed over the wire with its tip in | | | the upper right atrium. Free end of the dialysis catheter was | | | placed with its tip in the upper right atrium and sheath was removed. | | | Venotomy site and catheter insertion site closure using purse string | | | suture with 3-0 Vicryl. Dermabond was also applied to insertion and | | | venotomy site. The catheter was secured to the skin using 2-0 | | | Prolene. Both ports of the catheter aspirated and flushed freely. | | | The radiograph of the upper chest was obtained. | | + + + + + | Procedure Note | + + | Khalif Palm - 02/06/2019 10:59 AM PDT [facility] | | INSERTION11/09/2013 6:41 PM HISTORY:48 years. Male. Clotted left arm AV graft 585.6. | | PROCEDURE: 1. Sonography of the lower neck veins.2. Sonographic guidance for access | | into the right external jugular vein.3. Placement of 19 cm, 14.5-Afghan dual-lumen | | tunneled palindrome hemodialysis catheter in the right upper chest with its tip in the | | upper right atrium. MEDICATIONS/RADIATION DOSE: Lidocaine 1% for local anesthesia, | | Versed zero mg intravenous, Fentanyl 50 mcg intravenous, clindamycin 600 mg | | intravenous. Radiation dose 0.1 mGy. Fluoroscopy time 0.1 minutes. Intra-procedure | | sedation time 17 minutes. Appropriate physiologic monitoring, maintenance of adequate | | conscious sedation and independent detention supervision of the conscious sedation | | was performed throughout the procedure. FINDINGS:1. Sonography of the lower neck veins | | revealed widely patent, compressible right external jugular vein. Right internal | | jugular vein was thrombosed with prominent lower neck collaterals.2. Real-time | | visualization of the needle entry into the right external jugular vein under sonography | | was noted. Image documenting the same was obtained and placed in patient records.3. | | Upper chest radiograph shows dual-lumen, 14.5-Afghan, 19-cm, tunneled dialysis catheter | | with its tip in the upper portion of the right atrium. PROCEDURE: Informed written | | consent obtained from the patient after explaining the procedure, risks and | | alternatives. The patient understood the discussion and expressed a wish to proceed. | | The appropriate side and site was labeled and initialed as an independent process | | antecedent to the imaging and intervention, as per protocol at this institution. The | | patient was placed supine on the x-ray table. Sonography of the lower neck veins | | revealed widely patent and compressible right jugular vein. Supraclavicular and | | infraclavicular regions are prepped in the usual sterile fashion. Skin and subcutaneous | | tissues then infiltrated with 1% lidocaine. Right external jugular vein was accessed | | using a micropuncture needle and exchanged for a 4-Afghan micropuncture sheath over a | | 0.018 wire. Skin in the infraclavicular region was infiltrated with 1% lidocaine and a | | 5-mm skin incision was made. A 14.5-Afghan, dual-lumen, 19-cm tunneled hemodialysis | | catheter was placed a subcutaneous tunnel using a metallic tunneler. The 4-Afghan | | sheath was exchanged for a 0.035, 3-mm J-wire with its tip in the right atrium under | | fluoroscopy guidance. The skin and subcutaneous tract was dilated using at 12 and | | 14-Afghan facial dilators. A 15-Afghan peel-away sheath was placed over the wire with | | its tip in the upper right atrium. Free end of the dialysis catheter was placed with | | its tip in the upper right atrium and sheath was removed. Venotomy site and catheter | | insertion site closure using purse string suture with 3-0 Vicryl. Dermabond was also | | applied to insertion and venotomy site. The catheter was secured to the skin using 2-0 | | Prolene. Both ports of the catheter aspirated and flushed freely. The radiograph of | | the upper chest was obtained. IMPRESSION: 1. Sonography of the lower neck veins.2. | | Successful placement of a 14.5-Afghan dual-lumen 19-cm tunneled hemodialysis catheter | | with its tip in the upper portion of the right atrium without incidence. 47952, 52400, | | 60037 | |IMPRESSION: | | | |1. Sonography of the lower neck veins. | |2. Successful placement of a 14.5-Afghan dual-lumen 19-cm tunneled hemodialysis catheter w ith its tip in the upper portion of the right atrium without incidence. | | | |79990, 34504, [address] | | | | | + + US Guided Vascular Access (11/09/2013 7:36 PM PDT) + + | Specimen | + + | | + + + + + | Impressions | Performed At | + + + | 1. Sonography of the lower neck veins. 2. Successful | | | placement of a 14.5-Afghan dual-lumen 19-cm tunneled hemodialysis | | | catheter with its tip in the upper portion of the right atrium without | | | incidence. 68893, 47410, 76517 | | + + + + + + | Narrative | Performed At | + + + | [facility] INSERTION 11/09/2013 6:41 | | | PM HISTORY: 48 years. Male. Clotted left arm AV graft 585.6. | | | PROCEDURE: 1. Sonography of the lower neck veins. 2. | | | Sonographic guidance for access into the right external jugular | | | vein. 3. Placement of 19 cm, 14.5-Afghan dual-lumen tunneled | | | palindrome hemodialysis catheter in the right upper chest with its | | | tip in the upper right atrium. MEDICATIONS/RADIATION DOSE: | | | Lidocaine 1% for local anesthesia, Versed zero mg intravenous, | | | Fentanyl 50 mcg intravenous, clindamycin 600 mg intravenous. | | | Radiation dose 0.1 mGy. Fluoroscopy time 0.1 minutes. | | | Intra-procedure sedation time 17 minutes. Appropriate physiologic | | | monitoring, maintenance of adequate conscious sedation and independent | | | detention supervision of the conscious sedation was performed | | | throughout the procedure. FINDINGS: 1. Sonography of the lower | | | neck veins revealed widely patent, compressible right external jugular | | | vein. Right internal jugular vein was thrombosed with prominent lower | | | neck collaterals. 2. Real-time visualization of the needle entry | | | into the right external jugular vein under sonography was noted. | | | Image documenting the same was obtained and placed in patient | | | records. 3. Upper chest radiograph shows dual-lumen, 14.5-Afghan, | | | 19-cm, tunneled dialysis catheter with its tip in the upper portion | | | of the right atrium. PROCEDURE: Informed written consent | | | obtained from the patient after explaining the procedure, risks and | | | alternatives. The patient understood the discussion and expressed a | | | wish to proceed. The appropriate side and site was labeled and | | | initialed as an independent process antecedent to the imaging and | | | intervention, as per protocol at this institution. The patient | | | was placed supine on the x-ray table. Sonography of the lower neck | | | veins revealed widely patent and compressible right jugular vein. | | | Supraclavicular and infraclavicular regions are prepped in the usual | | | sterile fashion. Skin and subcutaneous tissues then infiltrated | | | with 1% lidocaine. Right external jugular vein was accessed using a | | | micropuncture needle and exchanged for a 4-Afghan micropuncture sheath | | | over a 0.018 wire. Skin in the infraclavicular region was | | | infiltrated with 1% lidocaine and a 5-mm skin incision was made. A | | | 14.5-Afghan, dual-lumen, 19-cm tunneled hemodialysis catheter was | | | placed a subcutaneous tunnel using a metallic tunneler. The 4-Afghan | | | sheath was exchanged for a 0.035, 3-mm J-wire with its tip in the | | | right atrium under fluoroscopy guidance. The skin and subcutaneous | | | tract was dilated using at 12 and 14-Afghan facial dilators. A | | | 15-Afghan peel-away sheath was placed over the wire with its tip in | | | the upper right atrium. Free end of the dialysis catheter was | | | placed with its tip in the upper right atrium and sheath was removed. | | | Venotomy site and catheter insertion site closure using purse string | | | suture with 3-0 Vicryl. Dermabond was also applied to insertion and | | | venotomy site. The catheter was secured to the skin using 2-0 | | | Prolene. Both ports of the catheter aspirated and flushed freely. | | | The radiograph of the upper chest was obtained. | | + + + + + | Procedure Note | + + | Khalif Palm Conversion - 02/06/2019 10:59 AM PDT [facility] | | INSERTION11/09/2013 6:41 PM HISTORY:48 years. Male. Clotted left arm AV graft 585.6. | | PROCEDURE: 1. Sonography of the lower neck veins.2. Sonographic guidance for access | | into the right external jugular vein.3. Placement of 19 cm, 14.5-Afghan dual-lumen | | tunneled palindrome hemodialysis catheter in the right upper chest with its tip in the | | upper right atrium. MEDICATIONS/RADIATION DOSE: Lidocaine 1% for local anesthesia, | | Versed zero mg intravenous, Fentanyl 50 mcg intravenous, clindamycin 600 mg | | intravenous. Radiation dose 0.1 mGy. Fluoroscopy time 0.1 minutes. Intra-procedure | | sedation time 17 minutes. Appropriate physiologic monitoring, maintenance of adequate | | conscious sedation and independent detention supervision of the conscious sedation | | was performed throughout the procedure. FINDINGS:1. Sonography of the lower neck veins | | revealed widely patent, compressible right external jugular vein. Right internal | | jugular vein was thrombosed with prominent lower neck collaterals.2. Real-time | | visualization of the needle entry into the right external jugular vein under sonography | | was noted. Image documenting the same was obtained and placed in patient records.3. | | Upper chest radiograph shows dual-lumen, 14.5-Afghan, 19-cm, tunneled dialysis catheter | | with its tip in the upper portion of the right atrium. PROCEDURE: Informed written | | consent obtained from the patient after explaining the procedure, risks and | | alternatives. The patient understood the discussion and expressed a wish to proceed. | | The appropriate side and site was labeled and initialed as an independent process | | antecedent to the imaging and intervention, as per protocol at this institution. The | | patient was placed supine on the x-ray table. Sonography of the lower neck veins | | revealed widely patent and compressible right jugular vein. Supraclavicular and | | infraclavicular regions are prepped in the usual sterile fashion. Skin and subcutaneous | | tissues then infiltrated with 1% lidocaine. Right external jugular vein was accessed | | using a micropuncture needle and exchanged for a 4-Afghan micropuncture sheath over a | | 0.018 wire. Skin in the infraclavicular region was infiltrated with 1% lidocaine and a | | 5-mm skin incision was made. A 14.5-Afghan, dual-lumen, 19-cm tunneled hemodialysis | | catheter was placed a subcutaneous tunnel using a metallic tunneler. The 4-Afghan | | sheath was exchanged for a 0.035, 3-mm J-wire with its tip in the right atrium under | | fluoroscopy guidance. The skin and subcutaneous tract was dilated using at 12 and | | 14-Afghan facial dilators. A 15-Afghan peel-away sheath was placed over the wire with | | its tip in the upper right atrium. Free end of the dialysis catheter was placed with | | its tip in the upper right atrium and sheath was removed. Venotomy site and catheter | | insertion site closure using purse string suture with 3-0 Vicryl. Dermabond was also | | applied to insertion and venotomy site. The catheter was secured to the skin using 2-0 | | Prolene. Both ports of the catheter aspirated and flushed freely. The radiograph of | | the upper chest was obtained. IMPRESSION: 1. Sonography of the lower neck veins.2. | | Successful placement of a 14.5-Afghan dual-lumen 19-cm tunneled hemodialysis catheter | | with its tip in the upper portion of the right atrium without incidence. [id number], [id number], | | [id number] | |IMPRESSION: | | | |1. Sonography of the lower neck veins. | |2. Successful placement of a 14.5-Afghan dual-lumen 19-cm tunneled hemodialysis catheter w ith its tip in the upper portion of the right atrium without incidence. | | | |23263, 11214, 33026 | | | | | + + Potassium (11/09/2013 6:30 PM PDT) + + + + + + | Component | Value | Ref Range | Performed | Pathologist | | | | | At | Signature | + + + + + + | K | 5.6 (H)Comment: Testing | 3.5 - 4.9 | EXTERNAL | | | | performed at [facility] [place];888 | mmol/L | LAB | | | | [address];[place] | | | | | | [id number] | | | | + + + + + + + + | Specimen | + + | Blood specimen | | (specimen) | + + + +---------+ + + | Performing | Address | City/State/Zipcode | Phone Number | | Organization | | | | + +---------+ + + | EXTERNAL LAB | | | | + +---------+ + + MRSA NAAT (11/09/2013 6:21 PM PDT) + + | Specimen | + + | | + + + + + | Narrative | Performed At | + + + | [facility] | EXTERNAL LAB | | Testing performed at [facility] [place];[address] [place] [address];[place] [address] MRSA PCR | | | NEGATIVE Testing performed at | | | [address];[place] [address] | | + + + + +---------+ + + | [...] stage renal disease | + + | Other complications due to other vascular device, implant, and graft | + + documented in this encounter
--- OUTSIDE RECORDS SUMMARY | ~2019-12-30 | XMS | Encounter Summary ---
Demographics + + + | Address | [address] | | | [place] [address] | + + + | Home Phone | | + + + | Preferred Language | Unknown | + + + | Marital Status | Unknown | + + + | Yarsani Affiliation | [id number] | + + + | Race | Unknown | + + + | Ethnic Group | Unknown | + + + Author + + + | Author | [facility] | | | and [place] | + + + | Organization | [facility] | | | and [...] Team Providers + +------+ + | Care Client Advisor Name | Role | Phone | + +------+ + PCP | Unavailable | + +------+ + Encounter Details +--------+ + + + + | Date | Type | Department | Care Team | Description | +--------+ + + + + | 11/09/ | Hospital | [facility] | PaulaGaldino ortiz | Hyperkalemia; Anemia | | 2013 - | Encounter | [facility] | MD [address] | of chronic kidney | | | | CARE [address]LO[address] | [address] | failure; ESRD (end | | 11/10/ | | [address] | [place] [address] | stage renal disease) | | 2013 | | [place], [place] | [phone] | on dialysis ([facility]); | | | | [address] | | HTN (hypertension); | | | | [phone] | | Hypoalbuminemia; | | | | | | Hypothyroidism; PUD | | | | | | (peptic ulcer | | | | | | disease); Secondary | | | | | | hyperparathyroidism | | | | | | (of renal origin) | | | | | | (FORM[facility]); Vitamin D | | | | | | deficiency | +--------+ + + + + Social [...] documented as of this encounter Discharge Summaries Lei Barreto MD - 11/10/2013 4:24 PM PDT Discharge Summaries by Lei Padgett MD at 11/10/13 1624 Author: Lei Padgett MD Service: (none) Author Type: Physician Filed: 11/11/13 0936 Date of Service: 11/10/13 1624 Status: Signed Hammerer Helper: Lei Padgett MD (Physician) Related Notes: Original Note by Lei Padgett MD (Physician) filed at 11/11/13 0016 [facility] Service: Hospitalist Physician Discharge Summary Patient ID: Enrique Potter 1965 48 y.o. Admit date: 11/09/2013 Discharge date: 11/10/2013 Admitting Physician: Galdino Peguero MD Discharge Physician: Lei Padgett MD Consultants: Treatment Team: Consulting Physician: Nakul Soria MD Admitting Provider: Galdino Peguero MD Primary Discharge Diagnoses: Principal Problem: *Hyperkalemia Active Problems: Vitamin D deficiency Hypothyroidism HTN (hypertension) ESRD (end stage renal disease) on dialysis Anemia of chronic kidney failure Steroid-induced hyperglycemia HPI and Hospital Course: Please see Dr. Peguero's H P for presentation details. In essence, Mr. Potter presented to [facility] on November 09, 2013, after it was discovered he has a dysfunction of h is AV fistula which clotted. The patient was not a candidate for further declotting procedur es of that hemodialysis access. He was scheduled emergently to undergo right chest tunneled hemodialysis catheter placement which was done by Dr. Sawyer in the evening of November 09 4. The patient did well overnight and underwent hemodialysis prior to discharge. He was decl ared medically stable for discharge in the afternoon of November 10, 2013. He will resume his pre viously scheduled hemodialysis on the outpatient basis. He will follow up with his nephrolog ist, Dr. Timmons, in about a week for a post hospitalization reevaluation and further plans of how to proceed with rn long term care AV fistula access recreation. The patient was transported home by family members with assistance from our long term care social worker. Past Medical History: Past Medical History Diagnosis Date Hyperlipidemia Hypertension [...] W/ EGD; Surgeon: John Singleton MD; Location: [facility]COPY; Se rvice: Gastroenterology; Laterality: N/A; Av fistula placement 05/06/2012 Procedure: AV FISTULA; Surgeon: Oskar Meyer MD; Location: [facility] MA[facility] OR; Service: Vascul ar; Laterality: Left; Left arm possible right Unlisted procedure arthroscopy shoulder rt , ligaments Knee arthroscopy 07/07/2012 Procedure: KNEE - ARTHROSCOPY; Surgeon: Favio Raza MD; Location: [facility] OR; S ervice: Orthopedics; Laterality: Right; After 1530 Catheter removal 07/07/2012 Procedure: DIALYSIS CATHETER REMOVAL; Surgeon: Oskar Meyer MD; Location: [facility] BEDSIDE MA OCEDURE; Service: General; Laterality: Right; perm cath Dialysis fistula creation 07/07/2012 Procedure: DIALYSIS CATHETER INSERTION; Surgeon: Oskar Meyer MD; Location: [facility]ED[facility] PROCEDURE; Service: General; Laterality: Left; temporary dialysis catheter Av fistula repair 07/11/2012 Procedure: AV FISTULA GRAFT REPAIR/REVISION; Surgeon: Oskar Meyer MD; Location: [facility]; Service: Vascular; Laterality: Left; Superficialization of brachiobasilic fistula and right IJ perm cath insertion Dialysis fistula creation 07/11/2012 Procedure: DIALYSIS CATHETER INSERTION; Surgeon: Oskar Meyer MD; Location: [facility] OR; Service: Vascular; Laterality: Left; removed dialysis catheter from left neck and placed new on in left chest, attempted in right neck but unable to place Discharged Condition: Stable for discharge as stated above. Significant Diagnostic Studies: Ir Dialysis Tunneled Cath Insert 11/09/2013 ENRIQUE TARIQ IR DIALYSIS TUNNELED CATHETER INSERTION 11/09/2013 6:41 PM HISTORY: 48 years. Male. Clotted left arm AV graft 585.6. PROCEDURE: 1. Sonography of the lower ne ck veins. 2. Sonographic guidance for access into the right external jugular vein. 3. Plac ement of 19 cm, 14.5-Serbian dual-lumen tunneled palindrome hemodialysis catheter in the righ t upper chest with its tip in the upper right atrium. MEDICATIONS/RADIATION DOSE: Lidoca ine 1% for local anesthesia, Versed zero mg intravenous, Fentanyl 50 mcg intravenous, clind amycin 600 mg intravenous. Radiation dose 0.1 mGy. Fluoroscopy time 0.1 minutes. Intra-pr ocedure sedation time 17 minutes. Appropriate physiologic monitoring, maintenance of adequa te conscious sedation and independent fci supervision of the conscious sedation was performed throughout the procedure. FINDINGS: 1. Sonography of the lower neck veins re vealed widely patent, compressible right external jugular vein. Right internal jugular vein was thrombosed with prominent lower neck collaterals. 2. Real-time visualization of the nee dle entry into the right external jugular vein under sonography was noted. Image documentin g the same was obtained and placed in patient records. 3. Upper chest radiograph shows dual -lumen, 14.5-Serbian, 19-cm, tunneled dialysis catheter with its tip in the upper portion of the right atrium. PROCEDURE: Informed written consent obtained from the patient after exp laining the procedure, risks and alternatives. The patient understood the discussion and ex pressed a wish to proceed. The appropriate side and site was labeled and initialed as an in dependent process antecedent to the imaging and intervention, as per protocol at this [facility]. The patient was placed supine on the x-ray table. Sonography of the lower neck vei ns revealed widely patent and compressible right jugular vein. Supraclavicular and infracla vicular regions are prepped in the usual sterile fashion. Skin and subcutaneous tissues the n infiltrated with 1% lidocaine. Right external jugular vein was accessed using a micropunc ture needle and exchanged for a 4-Serbian micropuncture sheath over a 0.018 wire. Skin in th e infraclavicular region was infiltrated with 1% lidocaine and a 5-mm skin incision was made . A 14.5-Serbian, dual-lumen, 19-cm tunneled hemodialysis catheter was placed a subcutaneous tunnel using a metallic tunneler. The 4-Serbian sheath was exchanged for a 0.035, 3-mm J-wi re with its tip in the right atrium under fluoroscopy guidance. The skin and subcutaneous t ract was dilated using at 12 and 14-Serbian facial dilators. A 15-Serbian peel-away sheath wa s placed over the wire with its tip in the upper right atrium. Free end of the dialysis cat heter was placed with its tip in the upper right atrium and sheath was removed. Venotomy si te and catheter insertion site closure using purse string suture with 3-0 Vicryl. Dermabond was also applied to insertion and venotomy site. The catheter was secured to the skin usin g 2-0 Prolene. Both ports of the catheter aspirated and flushed freely. The radiograph of the upper chest was obtained. 11/09/2013 1. Sonography of the lower neck veins. 2. Successful placement of a 14.5-Fren ch dual-lumen 19-cm tunneled hemodialysis catheter with its tip in the upper portion of the right atrium without incidence. 17829, 08169, 61226 Discharge Vitals: Filed Vitals: 11/10/13 0016 11/10/13 0814 11/10/13 1243 11/10/13 1619 BP: 163/79 156/92 184/87 Pulse: 117 84 Temp: 98.6 F (37 C) TempSrc: Oral Resp: 20 Height: Weight: 81.7 kg (180 lb 1.9 oz) SpO2: 98% Discharge Exam: General: Well nourished. Psych: Alert and oriented x 3. Calm, cooperative. Cardiovascular: Regular rate and rhythm, no murmurs, no thrills. Normal PMI. Respiratory: R chest HD catheter. Clear to auscultation, no wheezing or crackles, breathin g non labored. Gastrointestinal: Soft, non-tender, non-distended, positive bowel sounds. No HSM. Musculoskeletal: No edema in bilateral lower extremities. No joint swelling. Skin: Warm and dry, no rashes. Neck: No JVD, Trachea midline. Neurological: Non focal. Motor grossly intact. LABS: Lab 11/10/1334811/09/132138 WBC 11.9* 13.4* HGB 11.5* 12.2* HCT 34.1* 36.4* PLT 174 202 NEUTOPHILPCT 76.3 85.5 MONOPCT 6.7 4.5 Lab 11/10/1334811/09/13213811/09/13 1830 NA 133* 133* -- K 4.6 5.7* 5.6* CL 101 98* -- CO2 19* 22* -- BUN 78* 74* -- CREATININE 9.22* 9.66* -- CALCIUM -- -- -- PROT 6.0* 6.9 -- BILITOT 0.6 0.6 -- ALKPHOS -- -- -- ALT 22 24 -- AST 18 18 -- GLUCOSE -- -- -- Phosphorus: Lab 11/10/13 0349 PHOS 4.2 Lab 11/10/13348 MG 2.3 Disposition: Home under family care Follow up: [facility] [address] [place] [id number] Schedule an appointment as soon as possible for a visit in 1 week Juan Timmons MD [address] [facility] [place] [address] Schedule an appointment as soon as possible for a visit in 1 week Medication List As of 11/10/2013 4:24 PM CONTINUE taking these medications * albuterol 1.25 MG/3ML [...] 4 (four) hours as needed for Wheezing. allopurinol 100 MG tablet Refills: 0 Commonly known as: ZYLOPRIM amLODIPine 10 MG tablet Refills: 0 Commonly known as: NORVASC b complex-vitamin c-folic acid 0.8 MG Tabs tablet Refills: 0 carvedilol 3.125 MG tablet Refills: 0 Commonly known as: COREG Cholecalciferol 2000 UNITS Tabs Refills: [address] capsule Refills: 0 Commonly known as: DORYX fluticasone-salmeterol 250-50 MCG/DOSE QTY: 60 each Refills: 0 Commonly known as: ADVAIR Inhale 1 puff into the lungs 2 (two) times daily. furosemide 20 MG tablet Refills: 0 Commonly known as: LASIX levothyroxine 75 MCG tablet Refills: 0 Commonly known as: SYNTHROID loperamide 2 MG capsule Refills: 0 Commonly known as: IMODIUM montelukast 10 MG tablet QTY: 30 tablet Refills: 0 Commonly known as: SINGULAIR Take 1 tablet by mouth nightly. omeprazole 40 MG capsule Refills: 0 Commonly known as: PRILOSEC predniSONE 20 MG tablet Refills: 0 Commonly known as: DELTASONE * sevelamer 800 MG tablet Refills: 0 Commonly known as: RENVELA * sevelamer 800 MG tablet Refills: 0 Commonly known as: RENVELA sodium bicarbonate 650 MG tablet Refills: 0 * Notice: This list has 4 medication(s) that are the same as other medications prescribed for you. Read the directions carefully, and ask your doctor or other care provider to review them with you. STOP taking these medications albuterol (2.5 MG/3ML) 0.083% nebulizer solution Commonly known as: PROVENTIL ergocalciferol 87060 UNITS capsule Commonly known as: DRISDOL Lei Padgett MD 11/10/2013 4:24 PM Discharge took more than 35 minutes, to include final examination, discussion of admission, and preparation of prescriptions, instructions for ongoing care, follow up and dictation of summary. documented in thi s encounter Medications at Time of Discharge + [...] | | 14 | | | ol (BEKAH BASS | times daily. | | | | [...] + + + +---------+ + + | [employer] Kim | Use as directed by | [...] Progress Notes Conversion Transaction, Provider Unknown - 11/10/2013 4:59 PM PDTFormatting of this note m ight be different from the original. Nurse Progress Note by Tala Quiroz RN at 11/10/131658 Author: Tala Quiroz RN Service: (none) Author Type: Registered Nurse Filed: 11/10/131699 Date of Service: 11/10/131658 Status: Signed Hammerer Helper: Tala Quiroz RN (Registered Nurse) DC instructions given to patient, no questions at this time. Ready for discharge onver quique Transaction, Provider Unknown - 11/10/2013 4:06 PM PDT Nurse Progress Note by Tala Quiroz RN at 11/10/13 160 Author: Tala Quiroz RN Service: (none) Author Type: Registered Nurse Filed: 11/10/131605 Date of Service: 11/10/13 160 Status: Signed Hammerer Helper: Tala Quiroz RN (Registered Nurse) Per verbal order from Dr. Dayron IV dc'd. Patient will discharge home, awaiting DC orders. onver quique Transaction, Provider Unknown - 11/10/2013 2:55 PM PDT Progress Notes by Khadra Venegas RD, SINDY at 11/10/13 9665 Author: Khadra Venegas RD, SINDY Service: (none) Author Type: Administrative Program Specialist Filed: 11/10/13 1459 Date of Service: 11/10/13 9734 Status: Signed Hammerer Helper: Khadra Venegas RD, SINDY (Administrative Program Specialist) Has had several elevated blood sugars here. Recommend: Check ac/hs and start on low dose correctional scale insulin. Khadra Venegas RD, MPH, CDE, Administrative Program Specialist 11/10/2013 2:59 PM onver quique Transaction, Provider Unknown - 11/10/2013 2:12 PM PDT Case Management by Macho Abraham MS, MSW at 11/10/13 1412 Author: Macho Abraham MS, MSW Service: (none) Author Type: Scissors Sharpener Filed: 11/10/13 1413 Date of Service: 11/10/131411 Status: Signed Hammerer Helper: Macho Abraham MS, MSW (Scissors Sharpener) 11/10/13 1404 Discharge Planning Evaluation Admitting Diagnosis Hyperkalemia Readmission Yes-within 30 days Living Arrangements Spouse/significant other Support Systems Spouse/significant other Type of Residence Private residence House type House-1 story Independent with ADL's Yes Independent with Mobility Yes Home Care Services No Type of Home Care Services Other (Comment) (None) Caregiver after Discharge No Mental Status Oriented Prior functional status Cm met with pt and his , and son to discuss plan of care post d ischarge. Pt is independent with no needs. Pt is established to [facility] [place] medic aid and dialysis in [place] Power of Supervisor Core Drilling No Anticipated Discharge Plan Post Acute Care Needs None at this time Plan communicated to patient/family Yes Resources Financial concerns No Transportation issues No Patient/Family concerns Yes;Comment (see chart note re: transport) Anticipated Disposition Facility Type Other (Comment) (Home) Discharge planning: CM received referral that pt's son is requesting a gas voucher for ret urn to home in [place]. He states they are on fumes and have access to no money . Pt's wif e and son report that they drove to [facility] rather urgently and brought nothing with them. T he family has also asked for meals while pt has been here. Son states that they have friends in [place] but they are not answering their phone and they have no money. CM reviewed chart a nd pt's was given a gas voucher on October 28 for $30. Pt does have access to [place] [employer] transport services and CM confirmed pt's eligibility. Pt can have [place] medicaid trans port him from [place] to [place] and vice versa. Cm also confirmed that pt has eligibility for mile age reimbursement , so in the future the patient can have family transport if he wants and t barbiey can be reimbursed for gas based on mileage. CM provided pt and family with the phone miki mbdebora. Educated pt that [place] would not be able to continue to supplement the extended famil y visiting if they do not have a means and a way. Cm did provide a gas voucher to family wi th the education that this would be the only gas voucher as pt has had multiple vouchers in the past despite resources being available pt. Pt and family understand. CM also edited the credit amount to $20. Cm did kindly re-educate that pt has option for transport through his [place] Medicaid and he can have transport should his extended family not be able to afford v isiting . Patient's PCP is: [facility] Patient's insurance:Medicare, Medicaid, [facility] Coverage concerns: none Medication coverage/concerns: none Community resources utilized / needed: Re-educated re: pt's existing resources and transpor tation options pt has through [place] Medicaid Assistance in transportation: Pt and son prefer driving pt Identification of any specific education / training: re-enforce education about accessing r esources that are available to pt vs. [facility] supplementing funds to pt/family. Barriers to Discharge / Alternative housing needed: none reported. Anticipated DCP: Return to home in [place] Macho Abraham onver quique Transaction, Provider Unknown - 11/10/2013 1:30 AM PDT Progress Notes by Carmina Lara RPH at 11/10/13129 Author: Carmina Lara RPH Service: (none) Author Type: Pharmacist Filed: 11/10/13129 Date of Service: 11/10/13129 Status: Signed Hammerer Helper: Carmina Lara RPH (Pharmacist) Clinical Pharmacy Note: Renal Monitoring Enrique Potter 48 y.o. male Height: 170.2 cm Weight: 81.7 kg Patient is on hemodialysis. Pharmacy dosing for renal function per Dr. Peguero. Currently, there are no medications needing to be adjusted. Pharmacy will continue to monit or for changes in medication orders and adjust accordingly per P & T committee. Carmina Lara, PharmD 11/10/2013 1:29 AM docume nted in this encounter H&P Notes Galdino Peguero MD - 11/09/2013 11:17 PM PDTFormatting of this note might be dif ferent from the original. H&P by Galdino Peguero MD at 11/09/13 8524 Author: Galdino Peguero MD Service: (none) Author Type: Physician Filed: 11/10/13 1229 Date of Service: 11/09/13 7683 Status: Signed Hammerer Helper: Galdino Pgeuero MD (Physician) Related Notes: Original Note by Galdino Pegeuro MD (Physician) filed at 11/10/13 0571 [facility] Service: Hospitalist Admission History & Physical Date of Admission: 11/09/2013 Requesting Physician: Later , Emergency Department Reason for Admission: Hyperkalemia and ESRD need HD in am. History Obtained From: patient CHIEF COMPLAINT: Hyperkalemia. HISTORY OF PRESENT ILLNESS The patient is a 48 y.o. male with significant past medical history. The patient was taken to the emergency room after initial plan to do dialysis today. Unfort unately his left arm AV fistula was clogged, so they placed a right subclavian dialysis cath eter, started to have some leaking and bloody discharge. The patient afterward was advised t o come to the emergency room because his labs also indicated that his potassium was 5.6. Bec ause of the leak around the right chest dialysis catheter, hemodialysis today was not per. Onelia Soria was consulted from the emergency room, and he advised admission. He will review th e interventional radiology options in the morning. Currently the right chest dialysis cathet er is not leaking. There is a little bit of blood around the entry but not actively bleeding . The patient himself is very comfortable. He denies any chest pain; no shortness of breath; no nausea or vomiting. He claims he gained more than 19 pounds in the last 3 days. The mahamed ent received Kayexalate 30 g in the emergency room in addition to regular insulin D50, calci um gluconate and albuterol. He already has had 3 loose bowel movements. No EKG changes were noted on EKG. The patient otherwise is lying comfortably in bed. No other significant compla int. REVIEW OF SYSTEMS Negative except for pertinent items noted in HPI. Past Medical History Diagnosis Date Hyperlipidemia [...] W/ EGD; Surgeon: John Singleton MD; Location: [facility]; Se rvice: Gastroenterology; Laterality: N/A; Av fistula placement 05/06/2012 Procedure: AV FISTULA; Surgeon: Oskar Meyer MD; Location: [facility] MAIN OR; Service: Vascul ar; Laterality: Left; Left arm possible right Unlisted procedure arthroscopy shoulder rt , ligaments Knee arthroscopy 07/07/2012 Procedure: KNEE - ARTHROSCOPY; Surgeon: Favio Raza MD; Location: [facility] OR; S ervice: Orthopedics; Laterality: Right; After 1530 Catheter removal 07/07/2012 Procedure: DIALYSIS CATHETER REMOVAL; Surgeon: Oskar Meyer MD; Location: [facility] BEDSIDE MA OCEDURE; Service: General; Laterality: Right; perm cath Dialysis fistula creation 07/07/2012 Procedure: DIALYSIS CATHETER INSERTION; Surgeon: Oskar Meyer MD; Location: [facility] PROCEDURE; Service: General; Laterality: Left; temporary dialysis catheter Av fistula repair 07/11/2012 Procedure: AV FISTULA GRAFT REPAIR/REVISION; Surgeon: Oskar Meyer MD; Location: [facility]; Service: Vascular; Laterality: Left; Superficialization of brachiobasilic fistula and right IJ perm cath insertion Dialysis fistula creation 07/11/2012 Procedure: DIALYSIS CATHETER INSERTION; Surgeon: Oskar Meyer MD; Location: [facility] OR; Service: Vascular; Laterality: Left; removed dialysis catheter from left neck and placed new on in left chest, attempted in right neck but unable to place Immunizations: Influenza: Not indicated Pneumoccocal: Not indicated Allergies Allergen Reactions Lisinopril Other (See Comments) "makes me sweat and knocked me out" Penicillins Other (See Comments) Unknown 10/08/12: Patient tolerated Ceftriaxone during previous admissions. (Not in a hospital admission) Family History Problem Relation Age of Onset [...] KIDS. CURRENTLY UNEMPLOYED, BEFOR E WORKED AT [employer]. Quit METHAMPHETAMINES PER PATIENT after t he ARF in mar 2012. FATHER HAS COLON CANCER, HEART DISEASE, MOTHER 15 YEARS AGO. NO FH KIDNEY PROBLEMS. PHYSICAL EXAM Vital Signs: BP 148/67 | Pulse 94 | Temp 98 F (36.7 C) (Temporal) | Resp 16 | Wt 81.647 kg (180 lb) | SpO2 100% General Appearance: Alert, cooperative, no distress, appears stated age Head: Normocephalic, without obvious abnormality, atraumatic Eyes: PERRL, conjunctiva/corneas clear, EOM's intact, fundi benign, both eyes Ears: Normal TM's and external ear canals, both ears Nose: Nares normal, septum midline, mucosa normal, no drainage or sinus tenderness Throat: Lips, mucosa, and tongue normal; teeth and gums normal Neck: Supple, symmetrical, trachea midline, no adenopathy; thyroid: No enlargement/tenderness/nodules; no carotid bruit or JVD Back: Symmetric, no curvature, ROM normal, no CVA tenderness Lungs: Clear to auscultation bilaterally, respirations unlabored Chest wall: Right subclavian dialysis catheter in place , no active bleed. Heart: Regular rate and rhythm, S1 and S2 normal, no murmur, rub or gallop Abdomen: Soft, non-tender, bowel sounds active all four quadrants, no masses, no organomegaly Extremities: Left arm AV fistula in place . Pulses: 2+ and symmetric all extremities Skin: Skin color, texture, turgor normal, no rashes or lesions Lymph nodes: Cervical, supraclavicular, and axillary nodes normal Neurologic: CNII-XII intact. Normal strength, sensation and reflexes throughout DATA CBC: Lab Results Component Value Date WBC 13.4* 11/09/2013 RBC 3.73* 11/09/2013 HGB 12.2* 11/09/2013 HCT 36.4* 11/09/2013 MCV 97.4 11/09/2013 MCH 32.7 11/09/2013 MCHC 33.6 11/09/2013 RDW 50.8 11/09/2013 PLT 202 11/09/2013 MPV 7.3 11/09/2013 DIFFTYPE AUTOMATED 11/09/2013 CMP: Lab Results Component Value Date NA 133* 11/09/2013 K 5.7* 11/09/2013 CL 98* 11/09/2013 CO2 22* 11/09/2013 ANIONGAP 19 11/09/2013 GLUF 201* 11/09/2013 BUN 74* 11/09/2013 CREATININE 9.66* 11/09/2013 BCR 8 11/09/2013 CA 8.1* 11/09/2013 CA 6.1* 04/02/2012 PROT 6.9 11/09/2013 ALB 3.4* 11/09/2013 GLOB 3.5 11/09/2013 BILITOT 0.6 11/09/2013 ALP 172* 11/09/2013 AST 18 11/09/2013 ALT 24 11/09/2013 EGFR 6* 11/09/2013 PT/INR: Lab Results Component Value Date INR 0.9 10/27/2013 PROBLEM LIST Principal Problem: *Hyperkalemia Active Problems: Vitamin D deficiency Hypothyroidism HTN (hypertension) ESRD (end stage renal disease) on dialysis Anemia of chronic kidney failure ASSESSMENT & PLAN 1. Endstage renal disease, requiring hemodialysis, but his left arm A-V fistula graft is bl ocked and the right dialysis catheter is not working yet and it was slightly bleeding, now i s more stable. Dr. Soria from nephrology was consulted and he will arrange for hemodialysis this morning. 2. Hyperkalemia. He recently received D50 with 10 units of regular insulin, 30 mg of Kayexa late and has subsequent rebound movement, 1 g calcium gluconate, and albuterol inhalation. W ill repeat his potassium in the morning and also will do hemodialysis as soon as possible as per nephrology team. The patient currently has no EKG changes. 3. Diabetes. Will start him on Novolog sliding scale. 4. Hypertension. Will resume Norvasc 10 mg daily and Coreg 3.125 mg twice. 5. Hypothyroidism. Will replace with levothyroxine 75 mcg daily. 6. GI prophylaxis, omeprazole 40 mg daily. 7. DVT prophylaxis with heparin adjusted for renal function. 8. Other medical problems, currently stable. 9. FULL CODE. Time for admission 65 minutes, estimated hospital stay 2 nights. Disposition: Admit to medical floor. Code Status: Full Code. Primary Care Physician: [facility] GALDINO PEGUERO MD 11/09/2013 documente d in this encounter Consult Notes Nakul Soria MD - 11/10/2013 8:42 AM PDT Consult* by Nakul Soria MD at 11/10/13 0842 Author: Nakul Soria MD Service: Nephrology Author Type: Physician Filed: 11/10/13 0914 Date of Service: 11/10/13841 Status: Signed Hammerer Helper: Nakul Soria MD (Physician) [facility] Service: NEPHROLOGY CONSULT Note Enrique Potter 48 y.o. [id number] male PCP is [facility] Hospital Day: LOS: 1 day Date of Admission: 11/10/2013 Requesting Physician: Dr. Reyes Reason for Admission: Hyperkalemia Reason for consult: ESRD management/hyperkalemia History Obtained From: patient, chart review CHIEF COMPLAINT: My access was clotted HISTORY OF PRESENT ILLNESS: Enrique Potter is a 48 y.o. male with ESRD secondary to Biopsy-proven Diabetic nephropathy who is dialyzed Saturday and Saturday at [place] dialysis unit via Left upper extremity brachio cephalic fistula He has been hospitalized at least twice over the past 2-3 months an d has been treated with IV antibiotics for endocarditis in the past. AV fistula was malfunctioning on Saturday and clotted Saturday and was sent for further managem ent to Dr. Sawyer who placed a tunneled dialysis catheter. Was noted to be hyperkalemic and was admitted for further management. Off note noted to have recurrent hyperkalemia with dietary indiscretion. Otherwise felt okay but indicated significant weight gain on Saturday when he weighed in at [facility] dialysis unit. No fever, chest pain, minimal shortness of breath on exertion. Indicated compliance with antihypertensive medications including Coreg and amlodipine. Nephrology was consulted for evaluation and management of ESRD management. PMH, PSH, Social history, allergies, medications reviewed. Previous history summarized as above. Prior lab data and imaging reviewed. ROS: Review of systems is as per history of present illness. Otherwise a 12 organ system review of systems was done and is negative. Examination: Constitutional: Alert awake and oriented. Lying comfortably in bed and appears emaciated. Seen on HD with [facility], 11/10/13 HEENT: + JVD, non icteric sclera. Cardiovascular: S1soft. S2 split not appreciated. No friction rub. No S3. No murmur. LUNGS:: Minimal basal rales . Abdominal: SoftNo distension and no mass. There is no rebound tenderness and no guarding. Musculoskeletal: No gross deformity, EXT: B/L LE with chronic venous changes. distal lower extremity pulses not palpable Neurological: No gross focal motor neurologic deficits. Skin: Skin is warm and dry. Hemodialysis access: Left upper extremity brachiocephalic fistula, clotted Right IJ tunneled catheter. Scheduled Medications Reviewed. Continuous Infusions PRN Medications Reviewed. Allergy: Reviewed. Vital Signs: BP 176/85 | Pulse 99 | Temp 97.8 F (36.6 C) (Temporal) | Resp 16 | Ht 1.702 m (5' 7.01" ) | Wt 81.7 kg (180 lb 1.9 oz) | BMI 28.20 kg/m2 | SpO2 100% I&O Detailed Table: I/O last 3 completed shifts: In: - Out: 175 [Urine:175] Weight change: Patient's old records and labs were reviewed in detail and summarized. Assessment & Recommendations Enrique Potter is a 48 y.o. male with ESRD secondary to biopsy proven Diabetic nephropathy who i s dialyzed Saturday and Saturday at [place] dialysis unit via Left upper extremity b rachio cephalic fistula (last HD was Saturday10/03/12). His primary sap trainer is Dr. Timmons. He is now Admitted with clotted AV access, status post placement of tunneled dialysis karl ter and mild hyperkalemia. HTN: Anemia of chronic renal disease Electrolyte management (including potassium and Na): History of gout Profound hypoalbuminemia with diabetic nephropathy and nephrotic syndrome Secondary hyperparathyroidism Lab data evaluation: Lab Results Component Value Date BUN 78* 11/10/2013 CREATININE 9.22* 11/10/2013 EGFR 6* 11/10/2013 NA 133* 11/10/2013 K 4.6 11/10/2013 CL 101 11/10/2013 CO2 19* 11/10/2013 CA 8.7 11/10/2013 PHOS 4.2 11/10/2013 MG 2.3 11/10/2013 ALB 3.5* 11/10/2013 HGB 11.5* 11/10/2013 11/10/13 Assessment: ESRD stable. AVF clotted and s/p placement of IJ tunneled catheter yesterday. Access working OK. Hypertension reasonably controlled, compliant with and no side effects from Coreg, amlod ipine Clinically minimally volume overloaded with no lower extremity edema, + JVD, no pleural effusion, minimal basal rales, no orthopnea. Ca, PO4, Mg, target range. Mild hyperkalemia, resolved. Mild hyponatremia in ESRD with some degree of volume overload. Mild hypoalbuminemia, stable. Secondary hyperparathyroidism. PTH followed in the outpatient dialysis unit. Increased anion gap metabolic acidosis secondary to renal failure. Anemia of chronic renal failure, stable. No overt bleeding. Recommendations: Will dialyze today per usual prescription. Ultrafiltration as tolerated for mild volume overload. Use a 35 mEq bicarbonate bath for acidosis. Use Procrit to reach hemoglobin target of 10-11. Continue Coreg and amlodipine and current dose. Continue Renvela and current dose for secondary hyperparathyroidism along with vitamin D replacement After dialysis may be discharged to resume outpatient maintenance HD MWF Follow up with Dr. Timmons regarding AVF. Enrique Potter should be on a 2 gm Na, 1 gm PO4, 1 gm/kg protein diet. Please dose all medications for an eGFR of less than 15 ml/min/1.73 m2. NSAIDS/ADAM 2 inhibitors should be avoided. Aluminum/magnesium containing antacids and magne sium/phosphate containing enemas should be avoided. Fluid should be restricted to less than 1.5 L in a 24 hr period. Strict I/O should be done. NAKUL SORIA MD 11/10/2013 Seen earlier in the day and charting completed later after rounds. Dictation software, [employer], used which may contain error for similar sounding words. Personal communication requested for any clarification. Prognosis guarded in view of multiple comorbid illnesses and ESRD including but not limited to . documented in this en counter ED Notes Conversion Transaction, Provider Unknown - 11/09/2013 11:05 PM PDTFormatting of this note m ight be different from the original. ED Notes by Mihai Lucero RN at 11/09/13 2154 Author: Mihai Lucero RN Service: (none) Author Type: Registered Nurse Filed: 11/09/13 5823 Date of Service: 11/09/132304 Status: Signed Hammerer Helper: Mihai Lucero RN (Registered Nurse) Pts PICC dressing changed maintaining sterile field and sterile technique. Pt and Mihai RN wearing masks and Mihai RN wearing isolation gown. Pressure dressing and sterile gauze álvaro lied above site to control oozing of blood. Pt tolerates well. Mihai Lucero RN 11/09/13 4286 onver quique Transaction, Provider Unknown - 11/09/2013 11:04 PM PDT ED Notes by Mihai Lucero RN at 11/09/132303 Author: Mihai Lucero RN Service: (none) Author Type: Registered Nurse Filed: 11/09/132344 Date of Service: 11/09/132303 Status: Signed Hammerer Helper: Mihai Lucero RN (Registered Nurse) Dr. Reyes notified pts PICC line bleeding at insertion site. Dr. Reyes requests that pressu re dressing be applied. Mihai Lucero RN 11/09/132344 ater, Tala Warren DO - 11/09/2013 9:25 PM PDTFormatting of this note might be different from the or iginal. ED Provider Notes by Tala Reyes DO at 11/09/132124 Author: Tala Reyes DO Service: (none) Author Type: Physician Filed: 11/10/132209 Date of Service: 11/09/132124 Status: Signed Hammerer Helper: Tala Reyes DO (Physician) Procedure Orders: 1. Critical Care [[id number]] ordered by Marah Sebastian at 11/10/13 0129 [facility] Department of Emergency Medicine 11/09/2013 History of Present Illness Patient Identification Enrique Potter is a 48 y.o. male. Patient information was obtained from patient. History/Exam limitations: none. Patient presented to the Emergency Department by: Car Chief Complaint Chief Complaint Patient presents with Referral referred here from home performance laborer Abnormal Labs Pt presents to the ED with high potassium. Onset of symptoms was today, with a constant co urse since that time. Severity is described as moderate. The patient states he was sent here from the home performance laborer for high Potassium. The patient states three days ago he gained 19.5 poun ds, and his AV fistula stopped working in his L arm so he had a chest catheter put it today. The patient has no other complaints at this time. The patient denies any nausea, vomiting, diarrhea, CP, or SOB. There was no care prior to arrival. Past Medical History Diagnosis Date Hyperlipidemia Hypertension [...] W/ EGD; Surgeon: John Singleton MD; Location: [facility] ENDOSCOPY; Se rvice: Gastroenterology; Laterality: N/A; Av fistula placement 05/06/2012 Procedure: AV FISTULA; Surgeon: Oskar Meyer MD; Location: [facility] MAIN OR; Service: Vascul ar; Laterality: Left; Left arm possible right Unlisted procedure arthroscopy shoulder rt , ligaments Knee arthroscopy 07/07/2012 Procedure: KNEE - ARTHROSCOPY; Surgeon: Favio Raza MD; Location: [facility] MAIN OR; ervice: Orthopedics; Laterality: Right; After 1530 Catheter removal 07/07/2012 Procedure: DIALYSIS CATHETER REMOVAL; Surgeon: Oskar Meyer MD; Location: [facility] BEDSIDE MA OCEDURE; Service: General; Laterality: Right; perm cath Dialysis fistula creation 07/07/2012 Procedure: DIALYSIS CATHETER INSERTION; Surgeon: Oskar Meyer MD; Location: [facility] BEDSIDE PROCEDURE; Service: General; Laterality: Left; temporary dialysis catheter Av fistula repair 07/11/2012 Procedure: AV FISTULA GRAFT REPAIR/REVISION; Surgeon: Oskar Meyer MD; Location: [facility] OR; Service: Vascular; Laterality: Left; Superficialization of brachiobasilic fistula and right IJ perm cath insertion Dialysis fistula creation 07/11/2012 Procedure: DIALYSIS CATHETER INSERTION; Surgeon: Oskar Meyer MD; Location: [facility] OR; Service: Vascular; Laterality: Left; removed dialysis catheter from left neck and placed new on in left chest, attempted in right neck but unable to place Prior to Admission medications Medication Sig Start [...] times daily. Yes CLARENCE Earl ergocalciferol (DRISDOL) 35205 UNITS capsule Take 50,000 Units by mouth [...] (two) times daily. Yes Histor ical Provider Allergies Allergen Reactions Lisinopril Other (See Comments) [...] KIDS. CURRENTLY UNEMPLOYED, BEFOR E WORKED AT [employer]. Quit METHAMPHETAMINES PER PATIENT after t he ARF in mar 2012. FATHER HAS COLON CANCER, HEART DISEASE, MOTHER 15 YEARS AGO. NO FH KIDNEY PROBLEMS. Family History Problem Relation Age of Onset Heart disease Mother Heart disease Father Diabetes Father Cancer Father colon cancer Review of Systems Constitutional: Positive for: high potassium Negative for: fever or chills Cardiovascular: Negative for: chest pain Respiratory: Negative for: cough or shortness of breath Gastrointestinal: Negative for: vomiting or abdominal pain Genitourinary: Negative for: dysuria or flank pain Musculoskeletal: Negative for: myalgias or arthralgias Skin: Negative for: rash or lesion Neuro and psych: Negative for: fainting or dizziness All other systems were reviewed and are subjectively reported as negative. Physical Exam BP 148/67 | Pulse 102 | Temp 98 F (36.7 C) (Temporal) | Resp 20 | Wt 81.647 kg (180 lb) | SpO2 98% Vitals: Hypertensive, tachycardic, otherwise WNL Pulse Oximetry Interpretation: Normal General: Alert, no active distress Eyes: Normal inspection, pupils equal and round, non-icteric ENT: Nl external inspection Neck: Normal inspection Supple Full ROM Cardiovascular: Hypertensive and tachycardic Respiratory: No respiratory distress or wheezing, lungs are clear Abdomen: Soft, non-tender, non-distended Back: Normal inspection, moves without difficulty Skin: Color normal Warm and dry No rash Extremities: BRADY Neuro: No gross motor/sensory deficit Medical Decision Making and Emergency Department Course ED Department Course 9:34 PM. Pt presents to the ED with abnormal labs. MDM: After introducing myself to the pt, I have performed a careful history and physical examination. I have formulated the differen tial diagnosis that needs to be addressed during this ER visit, briefly discussed this diffe rential with the pt, and then discussed with them the plan of care. I have also addressed th e risks and benefits of all diagnostic and treatment modalities planned for this ED visit. I will order EKG, CMP, CBC, IVF, nebulizer treatment, med's and will place the patient on a c ardiac monitor. 10:13 PM. Reviewed the patients lab results which shows multiple abnormalities. 10:[address] Soria. Discussed patients case. He suggest admission, will cons ult the patient in the morning. 10:25 PM. Upon review of the patient s history, physical and the results of studies I bel ieve that the patient warrants admission to the hospital for further evaluation and treatmen t. I have spoken with the patient regarding the need for admission to the hospital, and the patient has expressed understanding of this. I will call and arrange for admission at this time. 10:[address] Timmons, hospitalist. Discussed patients case. He agree's for admis quique. ED Medication Administration from 11/09/20132041 to 11/09/2013 2343 Date/Time Order Dose Route Action Action by 11/09/2013 230 calcium gluconate 10 % injection 1,000 mg 1,000 mg Intravenous Given Sha Lucero RN 11/09/2013 230 dextrose 50 % solution 25 g 25 g Intravenous Given Mihai Lucero RN 11/09/2013 230 insulin regular (HUMULIN R) injection 10 Units 10 Units Intravenous Given Mihai Lucero RN 11/09/2013 2310 sodium polystyrene sulfonate (KAYEXALATE) 15 GM/60ML suspension 30 g 30 g Oral Given Mihai Lucero RN 11/09/2013 231 albuterol (PROVENTIL) nebulizer solution 2.5 mg 2.5 mg Nebulization Given Gaurav Hernandez, OSIRIS Filed Vitals: 11/09/13205711/09/13 2313 11/09/13 2322 BP: 148/67 Pulse: 102 94 99 Temp: 98 F (36.7 C) TempSrc: Temporal Resp: Weight: 81.647 kg (180 lb) SpO2: 98% 100% 100% Records Reviewed Nursing notes Old ED records reviewed (Using the electronic record system of [facility], Ana whittington reviewed the records with regard to the past medical/surgical history, previous medic ations, and allergies). Laboratory Evaluation Results Procedure Component Value Ref Range Date/Time CBC with differential [[id number]] (Abnormal) Collected:11/09/132138 Order Status:Completed Updated:11/09/132220 Specimen Information:Blood WBC 13.4 (H) 3.8 - 11.0 K/uL RBC 3.73 (L) 4.20 - 5.70 M/uL HGB 12.2 (L) 13.2 - 17.0 g/dL HCT 36.4 (L) 39.0 - 50.0 % MCV 97.4 80.0 - 100.0 fl MCH 32.7 27.0 - 34.0 pg MCHC 33.6 32.0 - 35.5 g/dL RDW SD 50.8 37 - 53 fl PLT 202 150 - 400 K/uL MPV 7.3 fl DIFF TYPE AUTOMATED NEUTROPHILS 85.5 % LYMPHOCYTES 9.5 % MONOCYTES 4.5 % EOSINOPHILS 0.3 % BASOPHILS 0.2 % NEUTROPHILS ABS 11.5 (H) 1.9 - 7.4 K/uL LYMPHOCYTES ABS 1.3 1.0 - 3.9 K/uL MONOCYTES ABS 0.6 0 - 0.8 K/uL EOSINOPHILS ABS 0.0 0 - 0.5 K/uL BASOPHILS ABS 0.0 0 - 0.1 K/uL Platelet Estimate ADEQUATE Diff Comment Result: SLIDE SCANNED, AGREES WITH AUTOMATED RESULTS. MORPHOLOGY RBC AND PLT MORPHOLOGY APPEAR NORMAL Comprehensive metabolic panel [[id number]] (Abnormal) Collected:11/09/132138 Order Status:Completed Updated:11/09/132209 Specimen Information:Blood SODIUM 133 (L) 135 - 143 mmol/L POTASSIUM 5.7 (H) 3.5 - 4.9 mmol/L CHLORIDE 98 (L) 99 - 109 mmol/L CO2 22 (L) 23 - 32 mmol/L ANION GAP AGAP 19 5 - 20 mmol/L GLUCOSE 201 (H) 65 - 99 mg/dL BUN 74 (H) 8 - 25 mg/dL CREATININE 9.66 (H) 0.70 - 1.30 mg/dL BUN/CREAT 8 CALCIUM 8.1 (L) 8.5 - 10.2 mg/dL TOTAL PROTEIN 6.9 6.3 - 8.2 g/dL Albumin 3.4 (L) 3.6 - 5.0 g/dL GLOBULIN 3.5 1.3 - 4.9 g/dL A/G 1.0 1.0 - 2.4 TBIL 0.6 0.1 - 1.5 mg/dL ALK PHOS 172 (H) 35 - 115 U/L AST 18 10 - 45 U/L ALT 24 10 - 65 U/L EGFR 6 (L) >60 mL/min/1.73m2 I personally reviewed the lab results and they have been posted to the chart. Pertinent po sitive and negative findings have been addressed appropriately. Radiology and EKG Evaluation Imaging Results None EKG at : 21:39 Normal sinus rhythm at 94. Normal MA and BASSAM Normal QRS and [place] Normal QT and QTc Flatted T wave otherwise nl EKG EKG dated on 10/27/2013 is changed in comparison to today's EKG Interpreted by Tala Reyes DO ED Diagnosis Final diagnosis Hyperkalemia Disposition: ED Disposition Admit/Observation Bed request special needs: Dialysis Diagnosis?: hyperkalemia, needs dialysis in am Follow-up Information Follow up With Details Comments Contact Info [facility] Schedule an appointment as soon as possible for a visit in 1 week post-hospitalization re-evaluation ; to re-assess if you have diabetes [address] [place] [id number] Juan Timmons MD Schedule an appointment as soon as possible for a visit in 1 week post-hos pitalization re-evaluation; further plans for L arm AV fistula repair/recreation [address] [place] [address] Discharge Medications: New Prescriptions No new medications Additional Documentation Critical Care Performed by: TALA REYES Authorized by: TALA REYES Total critical care time: 35 minutes Critical care time was exclusive of separately billable procedures and treating other patie nts. Critical care was necessary to treat or prevent imminent or life-threatening deterioration of the following conditions: metabolic crisis. Critical care was time spent personally by me on the following activities: blood draw for priscilla chen, development of treatment plan with patient or surrogate, discussions with consulta nts, interpretation of cardiac output measurements, evaluation of patient's response to jose tment, examination of patient, obtaining history from patient or surrogate, ordering and per forming treatments and interventions, ordering and review of laboratory studies, ordering an d review of radiographic studies, pulse oximetry, re-evaluation of patient's condition and r eview of old charts. Attending Note: Documentation assistance provided by Marah Sebastian (Scribe). Information recorded by the scribe has been reviewed and validated by me. Ana post with its contents. DO Tala Malone DO 11/10/13 4509 documented in this en counter Plan of Treatment Not on filedocumented as of this encounter Procedures + +--------+ + + + | Procedure Name | Priori | Date/Time | Associated Diagnosis | Comments | | | ty | | | | + +--------+ + + + | EXTERNAL LAB: CBC | Routin | 11/10/2013 | | Results for this | | | e | 3:49 AM | | procedure are in the | | | | PDT | | results section. | + +--------+ + + + | PHOSPHORUS | Routin | 11/10/2013 | | Results for this | | | e | 3:49 AM | | procedure are in the | | | | PDT | | results section. | + +--------+ + + + | MAGNESIUM | Routin | 11/10/2013 | | Results for this | | | e | 3:49 AM | | procedure are in the | | | | PDT | | results section. | + +--------+ + + + | HEMOGLOBIN A1C | Routin | 11/10/2013 | | Results for this | | | e | 3:49 AM | | procedure are in the | | | | PDT | | results section. | + +--------+ + + + | COMPREHENSIVE | Routin | 11/10/2013 | | Results for this | | METABOLIC PANEL | e | 3:49 AM | | procedure are in the | | | | PDT | | results section. | + +--------+ + + + | ECG 12 LEAD | Routin | 11/09/2013 | | Results for this | | | e | 9:39 PM | | procedure are in the | | | | PDT | | results section. | + +--------+ + + + | EXTERNAL LAB: CBC | Routin | 11/09/2013 | | Results for this | | | e | 9:39 PM | | procedure are in the | | | | PDT | | results section. | + +--------+ + + + | COMPREHENSIVE | Routin | 11/09/2013 | | Results for this | | METABOLIC PANEL | e | 9:39 PM | | procedure are in the | | | | PDT | | results section. | + +--------+ + + + documented in this encounter Results External Lab: CBC (11/10/2013 3:49 AM PDT) + + + + + + | Component | Value | Ref Range | Performed | Pathologist | | | | | At | Signature | + + + + + + | WBC | 11.9 (H)Comment: Testing | 3.8 - 11.0 K/uL | EXTERNAL | | | | performed at [facility], [address] | | LAB | | | | [address], | | | | | | [place] [address] | | | | + + + + + + | Non- | 3.46 (L)Comment: Testing | 4.20 - 5.70 | EXTERNAL | | | Red Blood | performed at [facility], [address] | M/uL | LAB | | | Cells | [address], | | | | | Counted | [place] [address] | | | | + + + + + + | Hemoglobin | 11.5 (L)Comment: Testing | 13.2 - 17.0 | EXTERNAL | | | | performed at [facility], [address] | g/dL | LAB | | | | [address], | | | | | | [place] [address] | | | | + + + + + + | Hematocrit, | 34.1 (L)Comment: Testing | 39.0 - 50.0 % | EXTERNAL | | | POC | performed at [facility], [address] | | LAB | | | | [address], | | | | | | [place] [address] | | | | + + + + + + | MCV | 98.6Comment: Testing | 80.0 - 100.0 fl | EXTERNAL | | | | performed at [facility], [address] | | LAB | | | [address], | | | | | | [place] [address] | | | | + + + + + + | MCH | 33.2Comment: Testing | 27.0 - 34.0 pg | EXTERNAL | | | | performed at [facility], [address] | | LAB | | | | [address], | | | | | | [place] [address] | | | | + + + + + + | MCHC | 33.7Comment: Testing | 32.0 - 35.5 | EXTERNAL | | | | performed at [facility], [address] | g/dL | LAB | | | | [address], | | | | | | [place] [address] | | | | + + + + + + | RDW-CV | 51.2Comment: Testing | 37 - 53 fl | EXTERNAL | | | | performed at [facility], [address] | | LAB | | | [address], | | | | | | [place] [address] | | | | + + + + + + | Platelet | 174Comment: Testing | 150 - 400 K/uL | EXTERNAL | | | Count | performed at [facility], [address] | | LAB | | | Plasma | [address], | | | | | | [place] [address] | | | | + + + + + + | MPV | 7.4Comment: Testing | fl | EXTERNAL | | | | performed at [facility], [address] | | LAB | | | | [address], | | | | | | [place] [address] | | | | + + + + + + | Differentia | AUTOMATEDComment: | | EXTERNAL | | | l Type | Testing performed at | | LAB | | | | [facility], [address] | | | | | | [place] | | | | | | [address] | | | | + + + + + + | % Segmented | 76.3Comment: Testing | % | EXTERNAL | | | | performed at [facility], [address] | | LAB | | | Neutrophils | [address], | | | | | | [place] [address] | | | | + + + + + + | % | 15.1Comment: Testing | % | EXTERNAL | | | Lymphocytes | performed at [facility], [address] | | LAB | | | | [address], | | | | | | [place] [address] | | | | + + + + + + | % Monocytes | 6.7Comment: Testing | % | EXTERNAL | | | | performed at [facility], [address] | | LAB | | | | [address], | | | | | | [place] [address] | | | | + + + + + + | % | 1.5Comment: Testing | % | EXTERNAL | | | Eosinophils | performed at [facility], [address] | | LAB | | | | [address], | | | | | | [place] [address] | | | | + + + + + + | % Basophils | 0.4Comment: Testing | % | EXTERNAL | | | | performed at [facility], [address] | | LAB | | | | [address], | | | | | | [place] [address] | | | | + + + + + + | Absolute | 9.1 (H)Comment: Testing | 1.9 - 7.4 K/uL | EXTERNAL | | | Segmented | performed at [facility], [address] | | LAB | | | Neutrophils | [address], | | | | | | [place] [address] | | | | + + + + + + | Absolute | 1.8Comment: Testing | 1.0 - 3.9 K/uL | EXTERNAL | | | Lymphocytes | performed at [facility], [address] | | LAB | | | | [address], | | | | | | [place] [address] | | | | + + + + + + | Absolute | 0.8Comment: Testing | 0 - 0.8 K/uL | EXTERNAL | | | Monocytes | performed at [facility], [address] | | LAB | | | | [address], | | | | | | [place] [address] | | | | + + + + + + | Absolute | 0.2Comment: Testing | 0 - 0.5 K/uL | EXTERNAL | | | Eosinophils | performed at [facility], [address] | | LAB | | | | [address], | | | | | | [place] [address] | | | | + + + + + + | Absolute | 0.0Comment: Testing | 0 - 0.1 K/uL | EXTERNAL | | | Basophils | performed at [facility], [address] | | LAB | | | [address], | | | | | | [place] [address] | | | | + + + + + + + + | Specimen | + + | Blood specimen | | (specimen) | + + + +---------+ + + | Performing | Address | City/State/Zipcode | Phone Number | | Organization | | | | + +---------+ + + | EXTERNAL LAB | | | | + +---------+ + + Phosphorus (11/10/2013 3:49 AM PDT) + + + + + + | Component | Value | Ref Range | Performed | Pathologist | | | | | At | Signature | + + + + + + | PHOSPHORUS | 4.2Comment: Testing | 2.3 - 4.8 mg/dL | EXTERNAL | | | | performed at [facility], [address] | | LAB | | | | [address], | | | | | | [place] [address] | | | | + + + + + + + + | Specimen | + + | Blood specimen | | (specimen) | + + + +---------+ + + | Performing | Address | City/State/Zipcode | Phone Number | | Organization | | | | + +---------+ + + | EXTERNAL LAB | | | | + +---------+ + + Magnesium (11/10/2013 3:49 AM PDT) + + + + + + | Component | Value | Ref Range | Performed | Pathologist | | | | | At | Signature | + + + + + + | Magnesium | 2.3Comment: Testing | 1.7 - 2.4 mg/dL | EXTERNAL | | | | performed at [facility], [address] | | LAB | | | | [address], | | | | | | [place] [address] | | | | + + + + + + + + | Specimen | + + | Blood specimen | | (specimen) | + + + +---------+ + + | Performing | Address | City/State/Zipcode | Phone Number | | Organization | | | | + +---------+ + + | EXTERNAL LAB | | | | + +---------+ + + Hemoglobin A1C (11/10/2013 3:49 AM PDT) + + + + + + | Component | Value | Ref Range | Performed | Pathologist | | | | | At | Signature | + + + + + + | Hemoglobin | 5.8Comment: The [place] | 4.0 - 6.0 % | EXTERNAL | | | A1c | Diabetes Association | | LAB | | | | considers a hemoglobin | | | | | | A1c result of <7.0% to | | | | | | be the goal of diabetic | | | | | | therapy. When results | | | | | | are consistently >8.0%, | | | | | | the ADA suggests | | | | | | reevaluation of the | | | | | | treatment regimen. The | | | | | | testing method used is | | | | | | certified traceable to | | | | | | the Diabetes Control and | | | | | | Complications Trial | | | | | | reference method.Testing | | | | | | performed at [facility], [address], | | | | | | [place] [address] | | | | + + + + + + | Glycohemogl | 120Comment: The ADA | mg/dL | EXTERNAL | | | obin | considers an eAG result | | LAB | | | (GHb),Total | of LT 154 mg/dL to be | | | | | | the goal of diabetic | | | | | | therapy. Estimated | | | | | | Average Glucose | | | | | | calculated from | | | | | | hemoglobin A1c by use of | | | | | | the ADA recommended | | | | | | formula.Testing | | | | | | performed at [facility], [address] | | | | | | [facility], | | | | | | [place] [address] | | | | + + + + + + + + | Specimen | + + | Blood specimen | | (specimen) | + + + +---------+ + + | Performing | Address | City/State/Zipcode | Phone Number | | Organization | | | | + +---------+ + + | EXTERNAL LAB | | | | + +---------+ + + Comprehensive Metabolic Panel (11/10/2013 3:49 AM PDT) + + + + + + | Component | Value | Ref Range | Performed | Pathologist | | | | | At | Signature | + + + + + + | Na | 133 (L)Comment: Testing | 135 - 143 | EXTERNAL | | | | performed at [facility], [address] | mmol/L | LAB | | | | [address], | | | | | | [place] [address] | | | | + + + + + + | K | 4.6Comment: Testing | 3.5 - 4.9 | EXTERNAL | | | | performed at [facility], [address] | mmol/L | LAB | | | | [address], | | | | | | [place] [address] | | | | + + + + + + | Cl | 101Comment: Testing | 99 - 109 mmol/L | EXTERNAL | | | | performed at [facility], [address] | | LAB | | | | [address], | | | | | | [place] [address] | | | | + + + + + + | CO2 | 19 (L)Comment: Testing | 23 - 32 mmol/L | EXTERNAL | | | | performed at [facility], [address] | | LAB | | | | [address], | | | | | | [place] [address] | | | | + + + + + + | Anion Gap | 18Comment: Testing | 5 - 20 mmol/L | EXTERNAL | | | | performed at [facility], [address] | | LAB | | | | [address], | | | | | | [place] [address] | | | | + + + + + + | Glucose, | 205 (H)Comment: Testing | 65 - 99 mg/dL | EXTERNAL | | | Fasting | performed at [facility], [address] | | LAB | | | | [address], | | | | | | [place] [address] | | | | + + + + + + | BUN | 78 (H)Comment: Testing | 8 - 25 mg/dL | EXTERNAL | | | | performed at [facility], [address] | | LAB | | | | [address], | | | | | | [place] [address] | | | | + + + + + + | Creatinine | 9.22 (H)Comment: Testing | 0.70 - 1.30 | EXTERNAL | | | | performed at [facility], [address] | mg/dL | LAB | | | | [address], | | | | | | [place] [address] | | | | + + + + + + | BUN/Creatin | 8Comment: Testing | | EXTERNAL | | | ine Ratio | performed at [facility], [address] | | LAB | | | | [address], | | | | | | [place] [address] | | | | + + + + + + | Calcium | 8.7Comment: Testing | 8.5 - 10.2 | EXTERNAL | | | | performed at [facility], [address] | mg/dL | LAB | | | | [address], | | | | | | [place] [address] | | | | + + + + + + | Protein, | 6.0 (L)Comment: Testing | 6.3 - 8.2 g/dL | EXTERNAL | | | Total | performed at [facility], [address] | | LAB | | | | [address], | | | | | | [place] [address] | | | | + + + + + + | Albumin | 3.5 (L)Comment: Testing | 3.6 - 5.0 g/dL | EXTERNAL | | | | performed at [facility], [address] | | LAB | | | | [address], | | | | | | [place] [address] | | | | + + + + + + | Globulin | 2.5Comment: Testing | 1.3 - 4.9 g/dL | EXTERNAL | | | | performed at [facility], [address] | | LAB | | | | [address], | | | | | | [place] [address] | | | | + + + + + + | A/G Ratio | 1.4Comment: Testing | 1.0 - 2.4 | EXTERNAL | | | | performed at [facility], [address] | | LAB | | | | [address], | | | | | | [place] [address] | | | | + + + + + + | Bilirubin | 0.6Comment: Testing | 0.1 - 1.5 mg/dL | EXTERNAL | | | Total | performed at [facility], [address] | | LAB | | | | [address], | | | | | | [place] [address] | | | | + + + + + + | ALP, | 122 (H)Comment: Testing | 35 - 115 U/L | EXTERNAL | | | External | performed at [facility], [address] | | LAB | | | | [address], | | | | | | [place] [address] | | | | + + + + + + | AST | 18Comment: Testing | 10 - 45 U/L | EXTERNAL | | | | performed at [facility], [address] | | LAB | | | | [address], | | | | | | [place] [address] | | | | + + + + + + | ALT | 22Comment: Testing | 10 - 65 U/L | EXTERNAL | | | | performed at [facility], [address] | | LAB | | | | [address], | | | | | | [place] [address] | | | | + + + + + + | Estimated | 6 (L)Comment: GFR <60: | mL/min/1.73m2 | EXTERNAL [...] | | | | | | at [facility], [address] | | | | | | [facility], | | | | | | [place] [address] | | | | + + + + + + + + | Specimen | + + | Blood specimen | | (specimen) | + + + +---------+ + + | Performing | Address | City/State/Zipcode | Phone Number | | Organization | | | | + +---------+ + + | EXTERNAL LAB | | | | + +---------+ + + ECG 12 lead (11/09/2013 9:39 PM PDT) + + + + + + | Component | Value | Ref Range | Performed | Pathologist | | | | | At | Signature | + + + + + + | DIAGNOSIS: | Normal sinus | | EXTERNAL | | | | rhythmNormal ECGWhen | | LAB | | | | compared with ECG of | | | | | | 27-OCT-2013 12:57,QRS | | | | | | axis Shifted rightThis | | | | | | ECG contains Unconfirmed | | | | | | Interpretation | | | | | | Statements. See ED | | | | | | Record for Physician | | | | | | Interpretation. | | | | | | Confirmed by MUSE READ | | | | | | ONLY, -COMPUTER ([id number]), | | | | | | movie editor Nereida Celis | | | | | | (25) on 11/10/2013 | | | | | | 12:43:42 AM | | | | + + + + + + + + | Specimen | + + | | + + + + + | Narrative | Performed At | + + + | Historically converted procedure from [facility] Epic environment | EXTERNAL LAB | + + + + +---------+ + + | Performing | Address | City/State/Zipcode | Phone Number | | Organization | | | | + +---------+ + + | EXTERNAL LAB | | | | + +---------+ + + External Lab: CBC (11/09/2013 9:39 PM PDT) + + + + + + | Component | Value | Ref Range | Performed | Pathologist | | | | | At | Signature | + + + + + + | WBC | 13.4 (H)Comment: Testing | 3.8 - 11.0 K/uL | EXTERNAL | | | | performed at [facility];[address] | | LAB | | | | [address];[place], [place] | | | | | | [address] | | | | + + + + + + | Non- | 3.73 (L)Comment: Testing | 4.20 - 5.70 | EXTERNAL | | | Red Blood | performed at [facility];[address] | M/uL | LAB | | | Cells | [address];[place] | | | | | Counted | [id number] | | | | + + + + + + | Hemoglobin | 12.2 (L)Comment: Testing | 13.2 - 17.0 | EXTERNAL | | | | performed at [facility];[address] | g/dL | LAB | | | | [address];[place] | | | | | | [address] | | | | + + + + + + | Hematocrit, | 36.4 (L)Comment: Testing | 39.0 - 50.0 % | EXTERNAL | | | POC | performed at [facility];[address] | | LAB | | | | [address];[place] | | | | | | [address] | | | | + + + + + + | MCV | 97.4Comment: Testing | 80.0 - 100.0 fl | EXTERNAL | | | | performed at [facility];[address] | | LAB | | | | [address];[place] | | | | | | [address] | | | | + + + + + + | MCH | 32.7Comment: Testing | 27.0 - 34.0 pg | EXTERNAL | | | | performed at [facility];[address] | | LAB | | | | [address];[place] | | | | | | [address] | | | | + + + + + + | MCHC | 33.6Comment: Testing | 32.0 - 35.5 | EXTERNAL | | | | performed at [facility];[address] | g/dL | LAB | | | | [address];[place] | | | | | | [address] | | | | + + + + + + | RDW-CV | 50.8Comment: Testing | 37 - 53 fl | EXTERNAL | | | | performed at [facility];[address] | | LAB | | | | [address];[place] | | | | | | [address] | | | | + + + + + + | Platelet | 202Comment: Testing | 150 - 400 K/uL | EXTERNAL | | | Count | performed at [facility];[address] | | LAB | | | Plasma | [address];[place] | | | | | | [address] | | | | + + + + + + | MPV | 7.3Comment: Testing | fl | EXTERNAL | | | | performed at [facility];[address] | | LAB | | | | [address];[place] | | | | | | [address] | | | | + + + + + + | Differentia | AUTOMATEDComment: | | EXTERNAL | | | l Type | Testing performed at | | LAB | | | | [facility];[address];[place] [address] | | | | + + + + + + | % Segmented | 85.5Comment: Testing | % | EXTERNAL | | | | performed at [facility];[address] | | LAB | | | Neutrophils | [address];[place] | | | | | | [address] | | | | + + + + + + | % | 9.5Comment: Testing | % | EXTERNAL | | | Lymphocytes | performed at [facility];[address] | | LAB | | | | [address];[place] | | | | | | [address] | | | | + + + + + + | % Monocytes | 4.5Comment: Testing | % | EXTERNAL | | | | performed at [facility];[address] | | LAB | | | | [address];[place] | | | | | | [address] | | | | + + + + + + | % | 0.3Comment: Testing | % | EXTERNAL | | | Eosinophils | performed at [facility];[address] | | LAB | | | | [address];[place] | | | | | | [address] | | | | + + + + + + | % Basophils | 0.2Comment: Testing | % | EXTERNAL | | | | performed at [facility];[address] | | LAB | | | | [address];[place] | | | | | | [address] | | | | + + + + + + | Absolute | 11.5 (H)Comment: Testing | 1.9 - 7.4 K/uL | EXTERNAL | | | Segmented | performed at [facility];[address] | | LAB | | | Neutrophils | [address];[place] | | | | | | [address] | | | | + + + + + + | Absolute | 1.3Comment: Testing | 1.0 - 3.9 K/uL | EXTERNAL | | | Lymphocytes | performed at [facility];[address] | | LAB | | | | [address];[place] | | | | | | [address] | | | | + + + + + + | Absolute | 0.6Comment: Testing | 0 - 0.8 K/uL | EXTERNAL | | | Monocytes | performed at [facility];[address] | | LAB | | | | [address];[place] | | | | | | [address] | | | | + + + + + + | Absolute | 0.0Comment: Testing | 0 - 0.5 K/uL | EXTERNAL | | | Eosinophils | performed at [facility];[address] | | LAB | | | | [address];[place] | | | | | | [address] | | | | + + + + + + | Absolute | 0.0Comment: Testing | 0 - 0.1 K/uL | EXTERNAL | | | Basophils | performed at [facility];[address] | | LAB | | | | [address];[place] | | | | | | [address] | | | | + + + + + + | Platelet | ADEQUATEComment: Testing | | EXTERNAL | | | Estimate | performed at [facility];[address] | | LAB | | | | [address];[place] | | | | | | [address] | | | | + + + + + + | Differentia | SLIDE SCANNED, AGREES | | EXTERNAL | | | l Comments | WITH AUTOMATED | | LAB | | | | RESULTS.Comment: Testing | | | | | | performed at [facility];[address] | | | | | | [address];[place] | | | | | | [address] | | | | + + + + + + | RBC | RBC AND PLT MORPHOLOGY | | EXTERNAL | | | Morphology | APPEAR NORMALComment: | | LAB | | | | Testing performed at | | | | | | [facility];[address];[place] [address] | | | | + + + + + + + + | Specimen | + + | Blood specimen | | (specimen) | + + + +---------+ + + | Performing | Address | City/State/Zipcode | Phone Number | | Organization | | | | + +---------+ + + | EXTERNAL LAB | | | | + +---------+ + + Comprehensive Metabolic Panel (11/09/2013 9:39 PM PDT) + + + + + + | Component | Value | Ref Range | Performed | Pathologist | | | | | At | Signature | + + + + + + | Na | 133 (L)Comment: Testing | 135 - 143 | EXTERNAL | | | | performed at [facility];[address] | mmol/L | LAB | | | | [address];[place] | | | | | | [address] | | | | + + + + + + | K | 5.7 (H)Comment: Testing | 3.5 - 4.9 | EXTERNAL | | | | performed at [facility];[address] | mmol/L | LAB | | | | [address];[place] | | | | | | [address] | | | | + + + + + + | Cl | 98 (L)Comment: Testing | 99 - 109 mmol/L | EXTERNAL | | | | performed at [facility];[address] | | LAB | | | | [address];[place] | | | | | | [address] | | | | + + + + + + | CO2 | 22 (L)Comment: Testing | 23 - 32 mmol/L | EXTERNAL | | | | performed at [facility];[address] | | LAB | | | | [address];[place] | | | | | | [address] | | | | + + + + + + | Anion Gap | 19Comment: Testing | 5 - 20 mmol/L | EXTERNAL | | | | performed at [facility];[address] | | LAB | | | | [address];[place] | | | | | | [address] | | | | + + + + + + | Glucose, | 201 (H)Comment: Testing | 65 - 99 mg/dL | EXTERNAL | | | Fasting | performed at [facility];[address] | | LAB | | | | [address];[place] | | | | | | [address] | | | | + + + + + + | BUN | 74 (H)Comment: Testing | 8 - 25 mg/dL | EXTERNAL | | | | performed at [facility];[address] | | LAB | | | | [address];[place] | | | | | | [address] | | | | + + + + + + | Creatinine | 9.66 (H)Comment: Testing | 0.70 - 1.30 | EXTERNAL | | | | performed at [facility];[address] | mg/dL | LAB | | | | [address];[place] | | | | | | [address] | | | | + + + + + + | BUN/Creatin | 8Comment: Testing | | EXTERNAL | | | ine Ratio | performed at [facility];[address] | | LAB | | | | [address];[place] | | | | | | [address] | | | | + + + + + + | Calcium | 8.1 (L)Comment: Testing | 8.5 - 10.2 | EXTERNAL | | | | performed at [facility];[address] | mg/dL | LAB | | | | [address];[place] | | | | | | [address] | | | | + + + + + + | Protein, | 6.9Comment: Testing | 6.3 - 8.2 g/dL | EXTERNAL | | | Total | performed at [facility];[address] | | LAB | | | | [address];[place] | | | | | | [address] | | | | + + + + + + | Albumin | 3.4 (L)Comment: Testing | 3.6 - 5.0 g/dL | EXTERNAL | | | | performed at [facility];[address] | | LAB | | | | [address];[place] | | | | | | [address] | | | | + + + + + + | Globulin | 3.5Comment: Testing | 1.3 - 4.9 g/dL | EXTERNAL | | | | performed at [facility];[address] | | LAB | | | | [address];[place] | | | | | | [address] | | | | + + + + + + | A/G Ratio | 1.0Comment: Testing | 1.0 - 2.4 | EXTERNAL | | | | performed at [facility];[address] | | LAB | | | | [address];[place] | | | | | | [address] | | | | + + + + + + | Bilirubin | 0.6Comment: Testing | 0.1 - 1.5 mg/dL | EXTERNAL | | | Total | performed at [facility];[address] | | LAB | | | | [address];[place] | | | | | | [address] | | | | + + + + + + | ALP, | 172 (H)Comment: Testing | 35 - 115 U/L | EXTERNAL | | | External | performed at [facility];[address] | | LAB | | | | [address];[place] | | | | | | [address] | | | | + + + + + + | AST | 18Comment: Testing | 10 - 45 U/L | EXTERNAL | | | | performed at [facility];[address] | | LAB | | | | [address];[place] | | | | | | [address] | | | | + + + + + + | ALT | 24Comment: Testing | 10 - 65 U/L | EXTERNAL | | | | performed at [facility];[address] | | LAB | | | | [address];[place] | | | | | | [address] | | | | + + + + + + | Estimated | 6 (L)Comment: GFR <60: | mL/min/1.73m2 | EXTERNAL [...] | | | | | | at [facility];[address] [place] [address] | | | | | | [facility];[place] [address] | | | | + + + [...] + | Diagnosis | + + | Hyperkalemia Hyperpotassemia | + + | Anemia of chronic kidney failure Anemia in chronic kidney disease | + + | ESRD (end stage renal disease) on dialysis (HCC) End stage renal disease | + + | HTN (hypertension) Unspecified essential hypertension | + + | Hypoalbuminemia Other disorders of plasma protein metabolism | + + | Hypothyroidism Unspecified hypothyroidism | + + | PUD (peptic ulcer disease) Peptic ulcer, unspecified site, unspecified as acute or | | chronic, without mention of hemorrhage, perforation, or obstruction | + + | Secondary hyperparathyroidism (of renal origin) | + + | Vitamin D deficiency Unspecified vitamin D deficiency | + + documented in this encounter
--- OUTSIDE RECORDS SUMMARY | ~2019-12-30 | XMS | Encounter Summary ---
Demographics + + + | Address | [address] | | | [place] [address] | + + + | Home Phone | | + + + | Preferred Language | Unknown | + + + | Marital Status | Unknown | + + + | [employer]beterian Affiliation | 1076 | + + + | Race | Unknown | + + + | Ethnic Group | Unknown | + + + Author + + + | Author | [facility] | | | and [place] | + + + | Organization | [facility] | | | [...] Team Providers + +------+ + | Care Mailing Clerk Name | Role | Phone | + +------+ + PCP | Unavailable | + +------+ + Encounter Details +--------+ + + + + | Date | Type | Department | Care Team | Description | +--------+ + + + + | 11/12/ | Orders Only | [facility] | Conversion | | | 2018 | | NEPHROLOGY [place] | Transaction, | | | | | [address] | Provider Unknown | | | | | [address] [place], [place] | | | | | | [phone] | (Fax) | | | | | [phone] | | | +--------+ + + + [...] + + | POTASSIUM | Routin | 11/12/2018 | | Results for this | | | e | 1:00 PM | | procedure are in the | | | | PDT | | results section. | + +--------+ + + + documented in this encounter Results Potassium (11/12/2018 1:00 PM PDT) + +-------+ + + + | Component | Value | Ref Range | Performed | Pathologist | | | | | At | Signature | + +-------+ + + + | K | 4.9 | 3.6 - 5.1 | EXTERNAL | | | | | mmol/L | LAB | | + +-------+ + [...]
--- OUTSIDE RECORDS SUMMARY | ~2019-12-30 | XMS | Encounter Summary ---
Demographics + + + | Address | [address] | | | [place] [address] | + + + | Home Phone | | + + + | Preferred Language | Unknown | + + + | Marital Status | Single | + + + | Confucianism Affiliation | Unknown | + + + | Race | or | + + + | Ethnic Group | Not or | + + + Author + + + | Author | [facility] [employer] [facility] | + + + | Organization | [facility] [employer] [facility] | + + + | Address | [...] Team Providers + +------+ + | Care Dumpster Operator Name | Role | Phone | + +------+ + | Berenice Hicks | PCP | | + +------+ + Encounter Details +--------+------+ + + + | Date | Type | Department | Care Team | Description | +--------+------+ + + + | 11/10/ | Lab | Laboratory at [facility] | | Type 2 diabetes | | 2020 | | [address] | | mellitus with ESRD | | | | [facility] | | (end-stage renal | | | | [address], [address] floor | | disease) ([facility]) | | | | [place], [place] | | | | | | [address] | | | | | | [phone] | | | +--------+------+ + + + Social History + +-------+ [...] recent travel history available. | + + + + + + | COVID-19 Exposure | Response | Date Recorded | + + + + | In the last month, have you been in contact | No / Unsure | 11/11/2019 1:24 PM | | with someone who was confirmed or | | PDT | | suspected to have Coronavirus / COVID-19? | | | + + + + documented as of this encounter Plan of Treatment Not on filedocumented as of this encounter Procedures + +--------+ + + + | Procedure Name | Priori | Date/Time | Associated Diagnosis | Comments | | | ty | | | | + +--------+ + + + | MEASLES (RUBEOLA) | Routin | 11/11/2019 | Type 2 diabetes | Results for this | | IGG | e | 2:07 PM | mellitus with ESRD | procedure are in the | | | | PDT | (end-stage renal | results section. | | | | | disease) (HCC) | | + +--------+ + + + | URINE CULTURE WORKUP | Routin | 11/11/2019 | Type 2 diabetes | Results for this | | | e | 2:07 PM | mellitus with ESRD | procedure are in the | | | | PDT | (end-stage renal | results section. | | | | | disease) ([facility]) | | + +--------+ + + + | CULTURE, URINE [facility] | Routin | 11/11/2019 | Type 2 diabetes | Results for this | | | e | 2:07 PM | mellitus with ESRD | procedure are in the | | | | PDT | (end-stage renal | results section. | | | | | disease) ([facility]) | | + +--------+ + + + | HEPATITIS A AB, IGG | Routin | 11/11/2019 | Type 2 diabetes | Results for this | | | e | 2:07 PM | mellitus with ESRD | procedure are in the | | | | PDT | (end-stage renal | results section. | | | | | disease) ([facility]) | | + +--------+ + + + | DRUG SCREEN 9 PANEL, | Routin | 11/11/2019 | Type 2 diabetes | Results for this | | S/P,W/REFLEX QUANT | e | 2:07 PM | mellitus with ESRD | procedure are in the | | | | PDT | (end-stage renal | results section. | | | | | disease) ([facility]) | | + +--------+ + + + | C3 AMANDA | Routin | 11/11/2019 | Type 2 diabetes | Results for this | | | e | 2:07 PM | mellitus with ESRD | procedure are in the | | | | PDT | (end-stage renal | results section. | | | | | disease) ([facility]) | | + +--------+ + + + | AMANDA IGG | Routin | 11/11/2019 | Type 2 diabetes | Results for this | | | e | 2:07 PM | mellitus with ESRD | procedure are in the | | | | PDT | (end-stage renal | results section. | | | | | disease) ([facility]) | | + +--------+ + + + | HEPATITIS B SURFACE | Routin | 11/11/2019 | Type 2 diabetes | Results for this | | AG W/REFLEX IF | e | 2:07 PM | mellitus with ESRD | procedure are in the | | INDICATED | | PDT | (end-stage renal | results section. | | | | | disease) ([facility]) | | + +--------+ + + + | CBC AND AUTO DIFF | Routin | 11/11/2019 | Type 2 diabetes | Results for this | | | e | 2:07 PM | mellitus with ESRD | procedure are in the | | | | PDT | (end-stage renal | results section. | | | | | disease) ([facility]) | | + +--------+ + + + | CONFIRMATORY ABO/RH | Routin | 11/11/2019 | Type 2 diabetes | Results for this | | | e | 2:07 PM | mellitus with ESRD | procedure are in the | | | | PDT | (end-stage renal | results section. | | | | | disease) ([facility]) | | + +--------+ + + + | LIT HLA-DP LOW RES- | Routin | 11/11/2019 | Type 2 diabetes | | | KE | e | 2:07 PM | mellitus with ESRD | | | | | PDT | (end-stage renal | | | | | | disease) ([facility]) | | + +--------+ + + + | NAY BERRY VIRUS | Routin | 11/11/2019 | Type 2 diabetes | Results for this | | AB VCA IGG, SERUM | e | 2:07 PM | mellitus with ESRD | procedure are in the | | | | PDT | (end-stage renal | results section. | | | | | disease) ([facility]) | | + +--------+ + + + | QUANTIFERON TB GOLD, | Routin | 11/11/2019 | Type 2 diabetes | Results for this | | BLOOD | e | 2:07 PM | mellitus with ESRD | procedure are in the | | | | PDT | (end-stage renal | results section. | | | | | disease) ([facility]) | | + +--------+ + + + | LIT FLOW HLA II AB | Routin | 11/11/2019 | Type 2 diabetes | | | AG ID KE, BLOOD | e | 2:07 PM | mellitus with ESRD | | | | | PDT | (end-stage renal | | | | | | disease) ([facility]) | | + +--------+ + + + | LIT FLOW HLA I AB ID | Routin | 11/11/2019 | Type 2 diabetes | Results for this | | KE, BLOOD | e | 2:07 PM | mellitus with ESRD | procedure are in the | | | | PDT | (end-stage renal | results section. | | | | | disease) ([facility]) | | + +--------+ + + + | ANTIBODY ELUTION | Routin | 11/11/2019 | Type 2 diabetes | Results for this | | | e | 2:07 PM | mellitus with ESRD | procedure are in the | | | | PDT | (end-stage renal | results section. | | | | | disease) ([facility]) | | + +--------+ + + + | LIT HLA-B LOW RES-KE | Routin | 11/11/2019 | Type 2 diabetes | | | | e | 2:07 PM | mellitus with ESRD | | | | | PDT | (end-stage renal | | | | | | disease) ([facility]) | | + +--------+ + + + | LIT HLA-A LOW RES-KE | Routin | 11/11/2019 | Type 2 diabetes | | | | e | 2:07 PM | mellitus with ESRD | | | | | PDT | (end-stage renal | | | | | | disease) ([facility]) | | + +--------+ + + + | LIT HLA-C LOW RES-KE | Routin | 11/11/2019 | Type 2 diabetes | | | | e | 2:07 PM | mellitus with ESRD | | | | | PDT | (end-stage renal | | | | | | disease) ([facility]) | | + +--------+ + + + | LIT HLA-DQ LOW | Routin | 11/11/2019 | Type 2 diabetes | | | RES-KE | e | 2:07 PM | mellitus with ESRD | | | | | PDT | (end-stage renal | | | | | | disease) ([facility]) | | + +--------+ + + + | LIT RBC GROUP TX KE, | Routin | 11/11/2019 | Type 2 diabetes | | | BLOOD | e | 2:07 PM | mellitus with ESRD | | | | | PDT | (end-stage renal | | | | | | disease) ([facility]) | | + +--------+ + + + | LIT HLA-DR LOW | Routin | 11/11/2019 | Type 2 diabetes | | | RES-KE | e | 2:07 PM | mellitus with ESRD | | | | | PDT | (end-stage renal | | | | | | disease) ([facility]) | | + +--------+ + + + | CMV IGG AND IGM ABS, | Routin | 11/11/2019 | Type 2 diabetes | Results for this | | SERUM | e | 2:07 PM | mellitus with ESRD | procedure are in the | | | | PDT | (end-stage renal | results section. | | | | | disease) ([facility]) | | + +--------+ + + + | INR | Routin | 11/11/2019 | Type 2 diabetes | Results for this | | | e | 2:07 PM | mellitus with ESRD | procedure are in the | | | | PDT | (end-stage renal | results section. | | | | | disease) ([facility]) | | + +--------+ + + + | CBC, WITH | Routin | 11/11/2019 | Type 2 diabetes | Results for this | | DIFFERENTIAL | e | 2:07 PM | mellitus with ESRD | procedure are in the | | | | PDT | (end-stage renal | results section. | | | | | disease) ([facility]) | | + +--------+ + + + | VARICELLA ZOSTER | Routin | 11/11/2019 | Type 2 diabetes | Results for this | | IGG, SERUM | e | 2:07 PM | mellitus with ESRD | procedure are in the | | | | PDT | (end-stage renal | results section. | | | | | disease) ([facility]) | | + +--------+ + + + | MUMPS IGG AB, SERUM | Routin | 11/11/2019 | Type 2 diabetes | Results for this | | | e | 2:07 PM | mellitus with ESRD | procedure are in the | | | | PDT | (end-stage renal | results section. | | | | | disease) ([facility]) | | + +--------+ + + + | PSA TOTAL, | Routin | 11/11/2019 | Type 2 diabetes | Results for this | | SCREENING, SERUM | e | 2:07 PM | mellitus with ESRD | procedure are in the | | | | PDT | (end-stage renal | results section. | | | | | disease) ([facility]) | | + +--------+ + + + | NICOTINE & | Routin | 11/11/2019 | Type 2 diabetes | Results for this | | METABOLITES, SERUM | e | 2:07 PM | mellitus with ESRD | procedure are in the | | | | PDT | (end-stage renal | results section. | | | | | disease) ([facility]) | | + +--------+ + + + | COMPLETE METABOLIC | Routin | 11/11/2019 | Type 2 diabetes | Results for this | | SET | e | 2:07 PM | mellitus with ESRD | procedure are in the | | (NA,K,CL,CO2,BUN,CRE | | PDT | (end-stage renal | results section. | | AT,GLUC,CA,AST,ALT,B | | | disease) ([facility]) | | | BASHIR TOTAL,ALK | | | | | | PHOS,ALB,PROT TOTAL) | | | | | + +--------+ + + + | UA, DIPSTICK ONLY | Routin | 11/11/2019 | Type 2 diabetes | Results for this | | | e | 2:07 PM | mellitus with ESRD | procedure are in the | | | | PDT | (end-stage renal | results section. | | | | | disease) ([facility]) | | + +--------+ + + + | URINE, MICROSCOPIC | Routin | 11/11/2019 | Type 2 diabetes | Results for this | | EXAM | e | 2:07 PM | mellitus with ESRD | procedure are in the | | | | PDT | (end-stage renal | results section. | | | | | disease) ([facility]) | | + +--------+ + + + | HIV-1,2 AB/HIV-1 P24 | Routin | 11/11/2019 | Type 2 diabetes | Results for this | | AG SCRN | e | 2:07 PM | mellitus with ESRD | procedure are in the | | | | PDT | (end-stage renal | results section. | | | | | disease) ([facility]) | | + +--------+ + + + | RPR SERUM | Routin | 11/11/2019 | Type 2 diabetes | Results for this | | | e | 2:07 PM | mellitus with ESRD | procedure are in the | | | | PDT | (end-stage renal | results section. | | | | | disease) ([facility]) | | + +--------+ + + + | RUBELLA IGG AB, | Routin | 11/11/2019 | Type 2 diabetes | Results for this | | SERUM | e | 2:07 PM | mellitus with ESRD | procedure are in the | | | | PDT | (end-stage renal | results section. | | | | | disease) ([facility]) | | + +--------+ + + + | APTT (ACT. PART. | Routin | 11/11/2019 | Type 2 diabetes | Results for this | | THROMBO TIME) | e | 2:07 PM | mellitus with ESRD | procedure are in the | | | | PDT | (end-stage renal | results section. | | | | | disease) ([facility]) | | + +--------+ + + + | ANTIBODY | Routin | 11/11/2019 | Type 2 diabetes | Results for this | | IDENTIFICATION | e | 2:07 PM | mellitus with ESRD | procedure are in the | | | | PDT | (end-stage renal | results section. | | | | | disease) ([facility]) | | + +--------+ + + + | ANTIBODY SCREEN | Routin | 11/11/2019 | Type 2 diabetes | Results for this | | | e | 2:07 PM | mellitus with ESRD | procedure are in the | | | | PDT | (end-stage renal | results section. | | | | | disease) ([facility]) | | + +--------+ + + + | TYPE AND SCREEN | Routin | 11/11/2019 | Type 2 diabetes | Results for this | | | e | 2:07 PM | mellitus with ESRD | procedure are in the | | | | PDT | (end-stage renal | results section. | | | | | disease) ([facility]) | | + +--------+ + + + | ABO & RH TYPE | Routin | 11/11/2019 | Type 2 diabetes | Results for this | | | e | 2:07 PM | mellitus with ESRD | procedure are in the | | | | PDT | (end-stage renal | results section. | | | | | disease) ([facility]) | | + +--------+ + + + | CULTURE, URINE BACTI | Routin | 11/11/2019 | Type 2 diabetes | Results for this | | | e | 2:07 PM | mellitus with ESRD | procedure are in the | | | | PDT | (end-stage renal | results section. | | | | | disease) ([facility]) | | + +--------+ + + + | PHOSPHORUS, PLASMA | Routin | 11/11/2019 | Type 2 diabetes | Results for this | | | e | 2:07 PM | mellitus with ESRD | procedure are in the | | | | PDT | (end-stage renal | results section. | | | | | disease) ([facility]) | | + +--------+ + + + | HEPATITIS B SURFACE | Routin | 11/11/2019 | Type 2 diabetes | Results for this | | AB QUAL, SERUM | e | 2:07 PM | mellitus with ESRD | procedure are in the | | | | PDT | (end-stage renal | results section. | | | | | disease) (HCC) | | + +--------+ + + + | HEPATITIS B CORE AB, | Routin | 11/11/2019 | Type 2 diabetes | Results for this | | SERUM | e | 2:07 PM | mellitus with ESRD | procedure are in the | | | | PDT | (end-stage renal | results section. | | | | | disease) (HCC) | | + +--------+ + + + | HEPATITIS C VIRUS | Routin | 11/11/2019 | Type 2 diabetes | Results for this | | W/CONFIRMATION | e | 2:07 PM | mellitus with ESRD | procedure are in the | | | | PDT | (end-stage renal | results section. | | | | | disease) (HCC) | | + +--------+ + + + | HEMOGLOBIN A1C, | Routin | 11/11/2019 | Type 2 diabetes | Results for this | | BLOOD | e | 2:07 PM | mellitus with ESRD | procedure are in the | | | | PDT | (end-stage renal | results section. | | | | | disease) ([facility]) | | + +--------+ + + + | BILIRUBIN DIRECT | Routin | 11/11/2019 | Type 2 diabetes | Results for this | | | e | 2:07 PM | mellitus with ESRD | procedure are in the | | | | PDT | (end-stage renal | results section. | | | | | disease) ([facility]) | | + +--------+ + + + | URIC ACID, PLASMA | Routin | 11/11/2019 | Type 2 diabetes | Results for this | | | e | 2:07 PM | mellitus with ESRD | procedure are in the | | | | PDT | (end-stage renal | results section. | | | | | disease) ([facility]) | | + +--------+ + + + | MAGNESIUM, PLASMA | Routin | 11/11/2019 | Type 2 diabetes | Results for this | | | e | 2:07 PM | mellitus with ESRD | procedure are in the | | | | PDT | (end-stage renal | results section. | | | | | disease) ([facility]) | | + +--------+ + + + | LDH TOTAL, PLASMA | Routin | 11/11/2019 | Type 2 diabetes | Results for this | | | e | 2:07 PM | mellitus with ESRD | procedure are in the | | | | PDT | (end-stage renal | results section. | | | | | disease) ([facility]) | | + +--------+ + + + | CHOLESTEROL TOTAL, | Routin | 11/11/2019 | Type 2 diabetes | Results for this | | PLASMA | e | 2:07 PM | mellitus with ESRD | procedure are in the | | | | PDT | (end-stage renal | results section. | | | | | disease) ([facility]) | | + +--------+ + + + documented in this encounter Results URINE CULTURE WORKUP (11/11/2019 2:07 PM PDT) + + | Specimen | + + | Urine | + + + + + | Narrative | Performed At | + + + | Culture Report: One or more organisms are present, indicating | [facility] - | | probable contamination or colonization not related to infection. | [facility] - | | Further work-up of this culture may result in clinically misleading | [place] | | information. Recollection is suggested if clinically indicated. | | + + + + + + + + | Performing | Address | City/State/Zipcode | Phone Number | | Organization | | | | + + + + + | [facility] - | [address] | [place] [address] | | | [place] | | | | + + + + + ANTIBODY ELUTION (11/11/2019 2:07 PM PDT) + + + + + + | Component | Value | Ref Range | Performed | Pathologist | | | | | At | Signature | + + + + + + | ANTIBODY | Negative | | [facility] | | | ELUTION 1 | | | LABORATORY | | | | | | SERVICES, | | | | | | TRANSFUSION | | | | | | MEDICINE | | + + + + + + + + | Specimen | + + | Blood - Blood | | (substance) | + + + + + + + | Performing | Address | City/State/Zipcode | Phone Number | | Organization | | | | + + + + + | [facility] | [address] | [place] [address] | | | SERVICES, | [address] | | | | TRANSFUSION MEDICINE | | | | + + + + + ANTIBODY IDENTIFICATION (11/11/2019 2:07 PM PDT) + +--------+ + + + | Component | Value | Ref Range | Performed | Pathologist | | | | | At | Signature | + +--------+ + + + | ANTIBODY 1 | Anti-K | | [facility] | | | | | | LABORATORY | | | | | | SERVICES, | | | | | | TRANSFUSION | | | | | | MEDICINE | | + +--------+ + + + + + | Specimen | + + | Blood - Blood | | (substance) | + + + + + + + | Performing | Address | City/State/Zipcode | Phone Number | | Organization | | | | + + + + + | [facility] | [address] | [place] [address] | | | SERVICES, | [address] | | | | TRANSFUSION MEDICINE | | | | + + + + + AMANDA IGG (11/11/2019 2:07 PM PDT) + + + + + + | Component | Value | Ref Range | Performed | Pathologist | | | | | At | Signature | + + + + + + | VAISHNAVI, IGG | Positive | | [facility] | | | | | | LABORATORY | | | | | | SERVICES, | | | | | | TRANSFUSION | | | | | | MEDICINE | | + + + + + + + + | Specimen | + + | Blood - Blood | | (substance) | + + + + + + + | Performing | Address | City/State/Zipcode | Phone Number | | Organization | | | | + + + + + | [facility] | [address] | [place] [address] | | | SERVICES, | [address] | | | | TRANSFUSION MEDICINE | | | | + + + + + C3 AMANDA (11/11/2019 2:07 PM PDT) + + + + + + | Component | Value | Ref Range | Performed | Pathologist | | | | | At | Signature | + + + + + + | AMANDA C3 | Negative | | [facility] | | | | | | LABORATORY | | | | | | SERVICES, | | | | | | TRANSFUSION | | | | | | MEDICINE | | + + + + + + + + | Specimen | + + | Blood - Blood | | (substance) | + + + + + + + | Performing | Address | City/State/Zipcode | Phone Number | | Organization | | | | + + + + + | [facility] | [address] | [place] [address] | | | SERVICES, | [address] | | | | TRANSFUSION MEDICINE | | | | + + + + + CONFIRMATORY ABO/RH (11/11/2019 2:07 PM PDT) + + + + + + | Component | Value | Ref Range | Performed | Pathologist | | | | | At | Signature | + + + + + + | ABO Group | O | | [facility] | | | | | | LABORATORY | | | | | | SERVICES, | | | | | | TRANSFUSION | | | | | | MEDICINE | | + + + + + + | Rh Type | Positive | | [facility] | | | | | | LABORATORY | | | | | | SERVICES, | | | | | | TRANSFUSION | | | | | | MEDICINE | | + + + + + + + + | Specimen | + + | Blood - Blood | | (substance) | + + + + + + + | Performing | Address | City/State/Zipcode | Phone Number | | Organization | | | | + + + + + | [facility] | [address] | [place] [address] | | | SERVICES, | [address] | | | | TRANSFUSION MEDICINE | | | | + + + + + CULTURE, URINE [facility] (11/11/2019 2:07 PM PDT) + + + + + + | Component | Value | Ref Range | Performed | Pathologist | | | | | At | Signature | + + + + + + | URINE | See Cx Results (A) | | [facility] | | | CULTURE | | | LABORATORY | | | [facility] | | | SERVICES, | | | | | | CORE | | + + + + + + + + | Specimen | + + | Urine | + + + + + + + | Performing | Address | City/State/Zipcode | Phone Number | | Organization | | | | + + + + + | [facility] | [address] | [place] [address] | | | SERVICES, CORE | [address] | | | + + + + + CBC AND AUTO DIFF (11/11/2019 2:07 PM PDT) + + + + + + | Component | Value | Ref Range | Performed | Pathologist | | | | | At | Signature | + + + + + + | WHITE CELL | 5.33 | 3.50 - 10.80 | [facility] | | | COUNT | | K/cu mm | LABORATORY | | | | | | SERVICES, | | | | | | CORE | | + + + + + + | RED CELL | 4.07 (L) | 4.50 - 6.00 | [facility] | | | COUNT | | M/cu mm | LABORATORY | | | | | | SERVICES, | | | | | | CORE | | + + + + + + | HEMOGLOBIN | 12.2 (L) | 13.5 - 17.5 | [facility] | | | | | g/dL | LABORATORY | | | | | | SERVICES, | | | | | | CORE | | + + + + + + | HEMATOCRIT | 38.7 (L) | 41.0 - 53.0 % | [facility] | | | | | | LABORATORY | | | | | | SERVICES, | | | | | | CORE | | + + + + + + | MCV | 95.1 | 80.0 - 100.0 fL | [facility] | | | | | | LABORATORY | | | | | | SERVICES, | | | | | | CORE | | + + + + + + | MCHC | 31.5 (L) | 32.0 - 36.0 | [facility] | | | | | g/dL | LABORATORY | | | | | | SERVICES, | | | | | | CORE | | + + + + + + | RDW SD | 51.9 (H) | 35.1 - 46.3 fL | [facility] | | | | | | LABORATORY | | | | | | SERVICES, | | | | | | CORE | | + + + + + + | PLATELET | 216 | 150 - 400 K/cu | [facility] | | | COUNT | | mm | LABORATORY | | | | | | SERVICES, | | | | | | CORE | | + + + + + + | MPV | 8.6 (L) | 9.7 - 12.3 fL | [facility] | | | | | | LABORATORY | | | | | | SERVICES, | | | | | | CORE | | + + + + + + | NRBC% | 0.0 | 0.0 - 0.3 % | [facility] | | | | | | LABORATORY | | | | | | SERVICES, | | | | | | CORE | | + + + + + + | NRBC# | 0.00 | 0.00 - 0.02 | [facility] | | | | | K/cu mm | LABORATORY | | | | | | SERVICES, | | | | | | CORE | | + + + + + + | NEUTROPHIL | 65.4 | 50.0 - 70.0 % | [facility] | | | % | | | LABORATORY | | | | | | SERVICES, | | | | | | CORE | | + + + + + + | LYMPHOCYTE | 15.6 (L) | 18.0 - 42.0 % | [facility] | | | % | | | LABORATORY | | | | | | SERVICES, | | | | | | CORE | | + + + + + + | MONOCYTE % | 7.7 | 3.5 - 9.0 % | [facility] | | | | | | LABORATORY | | | | | | SERVICES, | | | | | | CORE | | + + + + + + | EOS % | 10.3 (H) | 1.0 - 3.0 % | [facility] | | | | | | LABORATORY | | | | | | SERVICES, | | | | | | CORE | | + + + + + + | BASO % | 0.8 | 0.0 - 2.0 % | [facility] | | | | | | LABORATORY | | | | | | SERVICES, | | | | | | CORE | | + + + + + + | IG% | 0.2 | 0.0 - 1.0 % | [facility] | | | | | | LABORATORY | | | | | | SERVICES, | | | | | | CORE | | + + + + + + | NEUTROPHIL | 3.49 | 1.80 - 7.70 | [facility] | | | # | | K/cu mm | LABORATORY | | | | | | SERVICES, | | | | | | CORE | | + + + + + + | LYMPHOCYTE | 0.83 (L) | 1.00 - 4.80 | [facility] | | | # | | K/cu mm | LABORATORY | | | | | | SERVICES, | | | | | | CORE | | + + + + + + | MONOCYTE # | 0.41 | 0.10 - 0.90 | [facility] | | | | | K/cu mm | LABORATORY | | | | | | SERVICES, | | | | | | CORE | | + + + + + + | EOS # | 0.55 (H) | 0.00 - 0.50 | [facility] | | | | | K/cu mm | LABORATORY | | | | | | SERVICES, | | | | | | CORE | | + + + + + + | BASO # | 0.04 | 0.00 - 0.10 | [facility] | | | | | K/cu mm | LABORATORY | | | | | | SERVICES, | | | | | | CORE | | + + + + + + | IG# | 0.01 | 0.00 - 0.10 | [facility] | | | | | K/cu mm | LABORATORY | | | | | | SERVICES, | | | | | | CORE | | + + + + + + + + | Specimen | + + | Blood - Blood | | (substance) | + + + + + | Narrative | Performed At | + + + | Increased immature granulocytes (IG) define a left shift. Immature | [facility] | | granulocytes (IG) are an automated count of metamyelocytes, myelocytes | LABORATORY | | and promyelocytes. Bands are not included in the IG count. Bands are | SERVICES, CORE | | included in the neutrophil count. | | + + + + + + + + | Performing | Address | City/State/Zipcode | Phone Number | | Organization | | | | + + + + + | [place] [facility] | [address] | [place] [address] | | | SERVICES, CORE | [address] | | | + + + + + ANTIBODY SCREEN (11/11/2019 2:07 PM PDT) + + + + + + | Component | Value | Ref Range | Performed | Pathologist | | | | | At | Signature | + + + + + + | Antibody | Positive | | [facility] | | | Screen | | | LABORATORY | | | | | | SERVICES, | | | | | | TRANSFUSION | | | | | | MEDICINE | | + + + + + + + + | Specimen | + + | Blood - Blood | | (substance) | + + + + + + + | Performing | Address | City/State/Zipcode | Phone Number | | Organization | | | | + + + + + | [facility] | [address] | [place] [address] | | | SERVICES, | [address] | | | | TRANSFUSION MEDICINE | | | | + + + + + ABO & RH TYPE (11/11/2019 2:07 PM PDT) + + + + + + | Component | Value | Ref Range | Performed | Pathologist | | | | | At | Signature | + + + + + + | ABO Group | O | | [facility] | | | | | | LABORATORY | | | | | | SERVICES, | | | | | | TRANSFUSION | | | | | | MEDICINE | | + + + + + + | Rh Type | Positive | | [facility] | | | | | | LABORATORY | | | | | | SERVICES, | | | | | | TRANSFUSION | | | | | | MEDICINE | | + + + + + + + + | Specimen | + + | Blood - Blood | | (substance) | + + + + + + + | Performing | Address | City/State/Zipcode | Phone Number | | Organization | | | | + + + + + | [facility] | [address] | [place] [address] | | | SERVICES, | [address] | | | | TRANSFUSION MEDICINE | | | | + + + + + DRUG SCREEN 9 PANEL, S/P,W/REFLEX QUANT (11/11/2019 2:07 PM PDT) + + + + + + | Component | Value | Ref Range | Performed | Pathologist | | | | | At | Signature | + + + + + + | BARBITURATE | Negative | Cutoff 75 ng/mL | [facility] | | | S, S/P, | | | REG UNIV | | | SCREEN | | | PTH - INTFC | | + + + + + + | BENZODIAZEP | Negative | Cutoff 75 ng/mL | [facility] | | | RHETT, S/P, | | | REG UNIV | | | SCREEN | | | PTH - INTFC | | + + + + + + | BUPRENORPHI | Negative | Cutoff 1 ng/mL | [facility] | | | NE, S/P, | | | REG UNIV | | | SCREEN | | | PTH - INTFC | | + + + + + + | COCAINE, | Negative | Cutoff 30 ng/mL | [facility] | | | S/P, SCREEN | | | REG UNIV | | | | | | PTH - INTFC | | + + + + + + | METHADONE, | Negative | Cutoff 40 ng/mL | [facility] | | | S/P, SCREEN | | | REG UNIV | | | | | | PTH - INTFC | | + + + + + + | METHAMPHETA | Negative | Cutoff 30 ng/mL | [facility] | | | MINE, S/P, | | | REG UNIV | | | SCREEN | | | PTH - INTFC | | + + + + + + | OPIOIDS, | Negative | Cutoff 30 ng/mL | [facility] | | | SERUM OR | | | REG UNIV | | | PLASMA | | | PTH - INTFC | | + + + + + + | OXYCODONE, | Negative | Cutoff 30 ng/mL | [facility] | | | S/P, SCREEN | | | REG UNIV | | | | | | PTH - INTFC | | + + + + + + | PHENCYCLIDI | Negative | Cutoff 15 ng/mL | [facility] | | | NE, SERUM | | | REG UNIV | | | OR PLASMA | | | PTH - INTFC | | + + + + + + | CANNABINOID | Negative | Cutoff 30 ng/mL | [facility] | | | S, SERUM OR | | | REG UNIV | | | PLASMA | | | PTH - INTFC | | + + + + + + | DRUG SCREEN | See NoteComment: | | [facility] | | | COMMENTS | INTERPRETIVE | | REG UNIV | | | | INFORMATION: Drug Screen | | PTH - INTFC | | | | 9 Panel, Serum or | | | | | | | | | | | | Plasma - | | | | | | Immunoassay Screen with | | | | | | | | | | | | Reflex to | | | | | | Mass Spectrometry | | | | | | | | | | | | | | | | | | Confirmation/Quantitat | | | | | | ion 1. Methodology: | | | | | | Qualitative Immunoassay | | | | | | Screen 2. Drugs/Drug | | | | | | classes reported as | | | | | | "Positive" are | | | | | | automatically reflexed | | | | | | to mass spectrometry | | | | | | confirmation/quantitatio | | | | | | n testing. An | | | | | | immunoassay unconfirmed | | | | | | positive screen result | | | | | | may be useful for | | | | | | medical purposes but | | | | | | does not meet forensic | | | | | | standards. 3. The | | | | | | absence of expected | | | | | | drug(s) and/or drug | | | | | | metabolite(s) may | | | | | | indicate non-compliance, | | | | | | inappropriate timing of | | | | | | specimen collection | | | | | | relative to drug | | | | | | administration, poor | | | | | | drug absorption, or | | | | | | limitations of testing. | | | | | | The concentration at | | | | | | which the screening test | | | | | | can detect a drug or | | | | | | metabolite varies within | | | | | | a drug class. Specimens | | | | | | for which drugs or drug | | | | | | classes are detected by | | | | | | the screen are | | | | | | automatically reflexed | | | | | | to a second, more | | | | | | specific technology | | | | | | (mass spectrometry). The | | | | | | concentration value | | | | | | must be greater than or | | | | | | equal to the cutoff to | | | | | | be reported as positive. | | | | | | Interpretive questions | | | | | | should be directed to | | | | | | the laboratory. 4. For | | | | | | medical purposes only; | | | | | | not valid for forensic | | | | | | use. Test developed and | | | | | | characteristics | | | | | | determined by [facility] | | | | | | [facility]. See | | | | | | Compliance Statement B: | | | | | | [employer]/CSPerformed | | | | | | by [facility],[address] | | | | | [address], [facility] [place] | | | | | | [address] | | | | | | [phone].[employer]. | | | | | | Mio su MD, | | | | | | Lab. Director | | | | + + + + + + | AMPHETAMINE | Negative | Cutoff 30 ng/mL | [facility] | | | S, S/P, | | | REG UNIV | | | SCREEN | | | PTH - INTFC | | + + + + + + + + | Specimen | + + | Blood - Blood | | (substance) | + + + + + + + | Performing | Address | City/State/Zipcode | Phone Number | | Organization | | | | + + + + + | [facility] | [address] | [place], [place] | | | UNIV PTH - INTFC | | [address] | | + + + + + NICOTINE AND METABOLITES CONFIRM/QUANT, SERUM (11/11/2019 2:07 PM PDT) + + + + + + | Component | Value | Ref Range | Performed | Pathologist | | | | | At | Signature | + + + + + + | 3-OH-COTINI | <2 | ng/mL | [facility] | | | NE | | | REG UNIV | | | | | | PTH - INTFC | | + + + + + + | NICOTINE | <2Comment: Consistent | ng/mL | [facility] | | | (SERUM) | with abstinence from | | REG UNIV | | | | nicotine-containingprodu | | PTH - INTFC | | | | cts for at least 1 | | | | | | week.INTERPRETIVE | | | | | | INFORMATION: Nicotine | | | | | | and Metabolites, | | | | | | | | | | | | Serum or Plasma, | | | | | | | | | | | | | | | | | | Quantitative | | | | | | Methodology: | | | | | | Quantitative Liquid | | | | | | Chromatography-Tandem | | | | | | Mass Spectrometry | | | | | | Positive cutoff: 2 ng/mL | | | | | | For medical purposes | | | | | | only; not valid for | | | | | | forensic use. This test | | | | | | is designed to evaluate | | | | | | recent use of | | | | | | nicotine-containing | | | | | | products. Passive and | | | | | | active exposure cannot | | | | | | be discriminated | | | | | | definitively, although a | | | | | | cutoff of 10 ng/mL | | | | | | cotinine is frequently | | | | | | used for surgery | | | | | | qualification purposes. | | | | | | For smoking cessation | | | | | | programs or compliance | | | | | | testing, the absence of | | | | | | expected drug(s) and/or | | | | | | drug metabolite(s) may | | | | | | indicate non-compliance, | | | | | | inappropriate timing of | | | | | | specimen collection | | | | | | relative to drug | | | | | | administration, poor | | | | | | drug absorption, or | | | | | | limitations of testing. | | | | | | This test cannot | | | | | | distinguish between use | | | | | | of tobacco and purified | | | | | | nicotine products. The | | | | | | concentration value must | | | | | | be greater than or | | | | | | equal to the cutoff to | | | | | | be reported as positive. | | | | | | Test developed and | | | | | | characteristics | | | | | | determined by [facility] | | | | | | Laboratories. See | | | | | | Compliance Statement B: | | | | | | [employer]/CSPerformed | | | | | | by [facility],[address] | | | | | | [address], [facility] [place] | | | | | | [address] | | | | | | [phone].[employer]. | | | | | | [facility] MD, | | | | | | Lab. Director | | | | + + + + + + | COTININE | <2 | ng/mL | [facility] | | | | | | REG UNIV | | | | | | PTH - INTFC | | + + + + + + + + | Specimen | + + | Blood - Blood | | (substance) | + + + + + + + | Performing | Address | City/State/Zipcode | Phone Number | | Organization | | | | + + + + + | [facility] | [address] | [place], [place] | | | UNIV PTH - INTFC | | [address] | | + + + + + PSA TOTAL, SCREENING, SERUM (11/11/2019 2:07 PM PDT) + +-------+ + + + | Component | Value | Ref Range | Performed | Pathologist | | | | | At | Signature | + +-------+ + + + | PSA,TOTAL,S | 0.49 | <=3.50 ng/mL | [facility] | | | CREENING | | | LABORATORY | | | | | | SERVICES, | | | | | | CORE | | + +-------+ + + + + + | Specimen | + + | Blood - Blood | | (substance) | + + + + + + + | Performing | Address | City/State/Zipcode | Phone Number | | Organization | | | | + + + + + | [facility] | [address] | [place] [address] | | | SERVICES, CORE | [address] | | | + + + + + HEMOGLOBIN A1C, BLOOD (11/11/2019 2:07 PM PDT) + + + + + + | Component | Value | Ref Range | Performed | Pathologist | | | | | At | Signature | + + + + + + | HEMOGLOBIN | 5.4Comment: Hgb A1C | <5.7 % | [facility] | | | A1C | Interpretive | | LABORATORY | | | | Information: | | SERVICES, | | | | <5.7% - Normal | | SPECIAL IMM | | | | 5.7-6.4% - Consistent | | + [place] | | | | with pre-diabetes | | | | | | >6.4% - Consistent | | | | | | with diabetes | | | | | | | | | | + + + + + + | ESTIMATED | 108Comment: The | mg/dL | [facility] | | | AVERAGE | estimated Average | | LABORATORY | | | GLUCOSE | Glucose (eAG) number is | | SERVICES, | | | | calculated from the | | SPECIAL IMM | | | | result of the A1c test. | | + [place] | | | | The eAG shows what the | | | | | | average blood glucose | | | | | | was over the previous 2 | | | | | | to 3 months. | | | | + + + + + + + + | Specimen | + + | Blood - Blood | | (substance) | + + + + + | Narrative | Performed At | + + + | Alternate forms of testing such as fructosamine should be | [facility] | | considered for monitoring shelter glycemic control in patients with: | LABORATORY | | Increased red cell turnover, certain hemoglobinopathies (e.g., HbS, | SERVICES, | | HbE, HbC and thalassemia syndromes), anemias, blood loss, chronic | SPECIAL [facility] + | | liver disease and hemochromatosis (artefactually low HbA1c); iron | [facility] | | deficiency anemia (artefactually high HbA1c due to enhanced glycation | | | of hemoglobin). | | + + + + + + + + | Performing | Address | City/State/Zipcode | Phone Number | | Organization | | | | + + + + + | [facility] | [address] | [place] [address] | | | SERVICES, SPECIAL | [address] | | | | IMM + [place] | | | | + + + + + QUANTIFERON TB GOLD, BLOOD (11/11/2019 2:07 PM PDT) + + + + + + | Component | Value | Ref Range | Performed | Pathologist | | | | | At | Signature | + + + + + + | QUANTIFERON | 6.59 | IU/mL | [facility] | | | MITOGEN | | | REG UNIV | | | MINUS NIL | | | PTH - INTFC | | + + + + + + | QUANTIFERON | 0.01Comment: Performed | IU/mL | [facility] | | | NIL | by [facility],[address] | | REG UNIV | | | | [address], [facility] [place] | | PTH - INTFC | | | | [address] | | | | | | [phone].[facility]. | | | | | | Mio su MD, | | | | | | Lab. Director | | | | + + + + + + | QUANTIFERON | NegativeComment: | Negative | [facility] | | | TB PLUS | Interpretive Data: | | REG UNIV | | | GOLD | Quantiferon TB Gold Plus | | PTH - INTFC | | | | Interferon gamma | | | | | | release is measured for | | | | | | specimens from each of | | | | | | the four collection | | | | | | tubes. A qualitative | | | | | | result (Negative, | | | | | | Positive, or | | | | | | Indeterminate) is based | | | | | | on interpretation of the | | | | | | four values, NIL, | | | | | | MITOGEN minus NIL | | | | | | (MITOGEN-NIL), TB1 minus | | | | | | NIL (TB1-NIL), and TB2 | | | | | | minus NIL (TB2-NIL). The | | | | | | NIL value represents | | | | | | nonspecific reactivity | | | | | | produced by the patient | | | | | | specimen. The | | | | | | MITOGEN-NIL value serves | | | | | | as the positive control | | | | | | for the patient | | | | | | specimen, demonstrating | | | | | | successful lymphocyte | | | | | | activity. The TB1-NIL | | | | | | tube specifically | | | | | | detects CD4+ lymphocyte | | | | | | reactivity, specifically | | | | | | stimulated by the TB1 | | | | | | antigens. The TB2-NIL | | | | | | tube detects both CD4+ | | | | | | and CD8+ lymphocyte | | | | | | reactivity, stimulated | | | | | | by TB2 antigens. An | | | | | | overall Negative result | | | | | | does not completely rule | | | | | | out TB infection. A | | | | | | false-positive result in | | | | | | the absence of other | | | | | | clinical evidence of TB | | | | | | infection is not | | | | | | uncommon. Refer to: | | | | | | Updated Guidelines for | | | | | | Using Interferon Gamma | | | | | | Release Assays to Detect | | | | | | Mycobacterium | | | | | | tuberculosis Infection | | | | | | --- [place], 2009 | | | | | | (http://www.cdc.gov/mmwr | | | | | | /preview/mmwrhtml/eq2531 | | | | | | a1.htm), for more | | | | | | information concerning | | | | | | test performance in | | | | | | low-prevalence | | | | | | populations and use in | | | | | | occupational screening. | | | | + + + + + + | QUANTIFERON | 0.00 | 0.00 - 0.34 | [facility] | | | PLUS TB1 | | IU/mL | REG UNIV | | | MINUS NIL | | | PTH - INTFC | | + + + + + + | QUANTIFERON | 0.00 | 0.00 - 0.34 | [facility] | | | PLUS TB2 | | IU/mL | REG UNIV | | | MINUS NIL | | | PTH - INTFC | | + + + + + + + + | Specimen | + + | Blood - Blood | | (substance) | + + + + + + + | Performing | Address | City/State/Zipcode | Phone Number | | Organization | | | | + + + + + | [facility] | [address] | [place], [place] | | | UNIV PTH - INTFC | | [address] | | + + + + + CMV IGG AND IGM ABS, SERUM (11/11/2019 2:07 PM PDT) + + + + + + | Component | Value | Ref Range | Performed | Pathologist | | | | | At | Signature | + + + + + + | CMV IGG AB | <0.20Comment: | U/mL | [facility] | | | | INTERPRETIVE | | REG UNIV | | | | INFORMATION: | | PTH - INTFC | | | | Cytomegalovirus | | | | | | Antibody, IgG 0.59 | | | | | | U/mL or less......... | | | | | | Not Detected 0.6 - | | | | | | 0.69 U/mL........... | | | | | | Indeterminate-Repeat | | | | | | testing in | | | | | | | | | | | | 10-14 days may be | | | | | | helpful. 0.70 U/mL or | | | | | | greater...... Detected | | | | | | In immunocompromised | | | | | | patients, CMV serology | | | | | | (IgG or IgM antibody | | | | | | titers) may not be | | | | | | reliable and may be | | | | | | misleading in the | | | | | | diagnosis of acute or | | | | | | reactivation CMV | | | | | | disease. The preferred | | | | | | method for diagnosis is | | | | | | culture of virus and/or | | | | | | demonstration of viral | | | | | | antigen in peripheral | | | | | | white cells (buffy | | | | | | coat), bronchoalveolar | | | | | | lavage (BAL) cells, or | | | | | | tissue biopsies. This | | | | | | test should not be used | | | | | | for blood donor | | | | | | screening, associated | | | | | | re-entry protocols, or | | | | | | for screening Human | | | | | | Cell, Tissues and | | | | | | Cellular and | | | | | | Tissue-Based Products | | | | | | (HCT/P). The best | | | | | | evidence for current | | | | | | infection is a | | | | | | significant change on | | | | | | two appropriately timed | | | | | | specimens, where both | | | | | | tests are done in the | | | | | | same laboratory at the | | | | | | same time. | | | | + + + + + + | CMV IGM AB | <8.0Comment: | <=29.9 AU/mL | [facility] | | | | INTERPRETIVE | | REG UNIV | | | | INFORMATION: | | PTH - INTFC | | | | Cytomegalovirus | | | | | | Antibody, IgM 29.9 | | | | | | AU/mL or Less ....... | | | | | | Not Detected 30.0-34.9 | | | | | | AU/mL........... | | | | | | Indeterminate-Repeat | | | | | | testing | | | | | | | | | | | | in 10-14 days may be | | | | | | helpful. 35.0 AU/mL or | | | | | | Greater .... | | | | | | Detected-IgM antibody to | | | | | | CMV | | | | | | | | | | | | detected which may | | | | | | indicate a | | | | | | | | | | | | current or recent | | | | | | infection. | | | | | | | | | | | | However, low | | | | | | levels of IgM | | | | | | | | | | | | antibodies may | | | | | | occasionally | | | | | | | | | | | | persist for more | | | | | | than 12 | | | | | | | | | | | | months | | | | | | post-infection. CMV | | | | | | serology is not useful | | | | | | for the evaluation of | | | | | | active or reactivated | | | | | | infection in | | | | | | immunocompromised | | | | | | patients. Molecular | | | | | | diagnostic tests (i.e. | | | | | | PCR)are preferred in | | | | | | these cases. This test | | | | | | should not be used for | | | | | | blood donor screening, | | | | | | associated re-entry | | | | | | protocols, or for | | | | | | screening Human Cell, | | | | | | Tissues and Cellular and | | | | | | Tissue-Based Products | | | | | | (HCT/P).Performed by | | | | | | [facility],[address] | | | | | | [address] [place] | | | | | | [address] | | | | | | [phone]. | | | | | | Mio su MD, | | | | | | Lab. Director | | | | + + + + + + + + | Specimen | + + | Blood - Blood | | (substance) | + + + + + + + | Performing | Address | City/State/Zipcode | Phone Number | | Organization | | | | + + + + + | [facility] | [address] | [place], [place] | | | UNIV PTH - INTFC | | [address] | | + + + + + NAY BERRY VIRUS AB VCA IGG, SERUM (11/11/2019 2:07 PM PDT) + + + + + + | Component | Value | Ref Range | Performed | Pathologist | | | | | At | Signature | + + + + + + | NAY | >750.0 (H)Comment: | 0.0 - 21.9 U/mL | [facility] | | | BERRY VIRUS | INTERPRETIVE | | REG UNIV | | | AB VCA IGG | INFORMATION: | | PTH - INTFC | | | | Nay-Berry Virus | | | | | | Antibody to | | | | | | | | | | | | Viral Capsid Antigen, | | | | | | IgG 17.9 U/mL or | | | | | | less.......Not Detected | | | | | | 18.0-21.9 | | | | | | U/mL..........Indetermin | | | | | | ate - Repeat testing in | | | | | | | | | | | | 10-14 | | | | | | days may be helpful. | | | | | | 22.0 U/mL or | | | | | | greater....DetectedPerfo | | | | | | rmed by [facility] | | | | | | [facility],[address] | | | | | | [place] [address] | | | | | | [phone]. | | | | | | Mio su MD, | | | | | | Lab. Director | | | | + + + + + + + + | Specimen | + + | Blood - Blood | | (substance) | + + + + + + + | Performing | Address | City/State/Zipcode | Phone Number | | Organization | | | | + + + + + | [facility] | [address] | [place], [place] | | | UNIV PTH - INTFC | | [address] | | + + + + + VARICELLA ZOSTER IGG, SERUM (11/11/2019 2:07 PM PDT) + + + + + + | Component | Value | Ref Range | Performed | Pathologist | | | | | At | Signature | + + + + + + | VARICELLA | PositiveComment: | | [facility] - | | | ZOSTER IGG | VARICELLA ANTIBODY | | AIRPORT - | | | | TESTING IS NOT INDICATED | | [place] | | | | OR USEFUL TO DOCUMENT | | | | | | IMMUNITY IN RECIPIENTS | | | | | | OF VARICELLA VACCINE. | | | | + + + + + + + + | Specimen | + + | Blood - Blood | | (substance) | + + + + + + + | Performing | Address | City/State/Zipcode | Phone Number | | Organization | | | | + + + + + | [facility] | [address] | [place] [address] | | | [facility] | | | | + + + + + RPR SERUM (11/11/2019 2:07 PM PDT) + + + + + + | Component | Value | Ref Range | Performed | Pathologist | | | | | At | Signature | + + + + + + | RPR SRM | Non ReactiveComment: | Non Reactive | [facility] | | | QUAL | Rapid Plasma Reagin | | REG UNIV | | | | screening test is | | PTH - INTFC | | | | Non-Reactive. No further | | | | | | reflex testing is | | | | | | required.Performed by | | | | | | [facility],[address] | | | | | | [address], [facility] [place] | | | | | | [address] | | | | | | [phone]. | | | | | | Mio su MD, | | | | | | Lab. Director | | | | + + + + + + + + | Specimen | + + | Blood - Blood | | (substance) | + + + + + + + | Performing | Address | City/State/Zipcode | Phone Number | | Organization | | | | + + + + + | [facility] | [address] | [place], [place] | | | UNIV PTH - INTFC | | [address] | | + + + + + HEPATITIS C VIRUS W/CONFIRMATION (11/11/2019 2:07 PM PDT) + + + + + + | Component | Value | Ref Range | Performed | Pathologist | | | | | At | Signature | + + + + + + | HEP C AB | Not Detected | Not Detected | [facility] | | | | | | LABORATORY | | | | | | SERVICES, | | | | | | CORE | | + + + + + + + + | Specimen | + + | Blood - Blood | | (substance) | + + + + + + + | Performing | Address | City/State/Zipcode | Phone Number | | Organization | | | | + + + + + | [facility] | [address] | [place] [address] | | | SERVICES, CORE | [address] | | | + + + + + HIV AB/AG SCREENING W/REFLEX TO CONFIRM (11/11/2019 2:07 PM PDT) + + + + + + | Component | Value | Ref Range | Performed | Pathologist | | | | | At | Signature | + + + + + + | HIV-1,2 | Negative | Negative | [facility] | | | AB/HIV-1 | | | LABORATORY | | | P24 AG | | | SERVICES, | | | SCREEN | | | [facility] | | | | | | + [place] | | + + + + + + + + | Specimen | + + | Blood - Blood | | (substance) | + + + + + | Narrative | Performed At | + + + | HIV-1 p24 Ag and HIV-1,2 Ab not detected. The performance of the | [facility] | | DESPATCH CLERK HIV Combo test, with or without confirmation, was not | LABORATORY | | tested in pediatric patients less than 2 years of age. [facility] | SERVICES, | | guidelines recommend virologic assays (i.e. HIV 1 VIRAL LOAD) that | [facility] + | | directly detect HIV for diagnosis of HIV infection in infants younger | [place] | | than 2 years. | | + + + + + + + + | Performing | Address | City/State/Zipcode | Phone Number | | Organization | | | | + + + + + | [facility] | [address] | [place] [address] | | | SERVICES, SPECIAL | [address] | | | | IMM + [place] | | | | + + + + + HEPATITIS B SURFACE AG W/REFLEX CONFIRMATION IF INDETERMINATE RESULTS (11/11/2019 2:07 PM PDT) + + + + + + | Component | Value | Ref Range | Performed | Pathologist | | | | | At | Signature | + + + + + + | HEPATITIS B | | | [facility] | | | SURFACE | | | LABORATORY | | | AG, SERUM | | | SERVICES, | | | | | | CORE | | + + + + + + | HEP B | Not Detected | Not Detected | [facility] | | | SURFACE AG | | | LABORATORY | | | | | | SERVICES, | | | | | | CORE | | + + + + + + + + | Specimen | + + | Blood - Blood | | (substance) | + + + + + + + | Performing | Address | City/State/Zipcode | Phone Number | | Organization | | | | + + + + + | [facility] | [address] | [place] [address] | | | SERVICES, CORE | [address] | | | + + + + + HEPATITIS B SURFACE AB QUAL, SERUM (11/11/2019 2:07 PM PDT) + + + + + + | Component | Value | Ref Range | Performed | Pathologist | | | | | At | Signature | + + + + + + | HEP B | Detected (A) | Not Detected | [facility] | | | SURFACE AB | | | LABORATORY | | | QUAL | | | SERVICES, | | | | | | CORE | | + + + + + + + + | Specimen | + + | Blood - Blood | | (substance) | + + + + + | Narrative | Performed At | + + + | "Detected" >=10 mIU/mL indicates immunity to Hepatitis B. | [facility] | | | LABORATORY | | | SERVICES, CORE | + + + + + + + + | Performing | Address | City/State/Zipcode | Phone Number | | Organization | | | | + + + + + | [facility] | [address] | [place] [address] | | | SERVICES, CORE | [address] | | | + + + + + HEPATITIS B CORE AB, SERUM (11/11/2019 2:07 PM PDT) + + + + + + | Component | Value | Ref Range | Performed | Pathologist | | | | | At | Signature | + + + + + + | HEP B CORE | Not Detected | Not Detected | [facility] | | | AB | | | LABORATORY | | | | | | SERVICES, | | | | | | CORE | | + + + + + + + + | Specimen | + + | Blood - Blood | | (substance) | + + + + + + + | Performing | Address | City/State/Zipcode | Phone Number | | Organization | | | | + + + + + | [facility] | [address] | [place] [address] | | | SERVICES, CORE | [address] | | | + + + + + HEPATITIS A AB, IGG (11/11/2019 2:07 PM PDT) + + + + + + | Component | Value | Ref Range | Performed | Pathologist | | | | | At | Signature | + + + + + + | HEPATITIS A | Positive (A) | Negative | [facility] | [facility] | | | [facility] | | | | | | [place] | | + + + + + + + + | Specimen | + + | Blood - Blood | | (substance) | + + + + + + + | Performing | Address | City/State/Zipcode | Phone Number | | Organization | | | | + + + + + | [facility] | [address] | [place] [address] | | | [place] | | | | + + + + + RUBELLA IGG AB, SERUM (11/11/2019 2:07 PM PDT) + +--------+ + + + | Component | Value | Ref Range | Performed | Pathologist | | | | | At | Signature | + +--------+ + + + | RUBELLA IGG | Immune | Immune | [facility] | | | | | | [facility] - | | | [facility]PRE[facility]AT | | | [place] | | | ION | | | | | + +--------+ + + + + + | Specimen | + + | Blood - Blood | | (substance) | + + + + + + + | Performing | Address | City/State/Zipcode | Phone Number | | Organization | | | | + + + + + | [facility] | [address] | [place] [address] | | | [facility] | | | | + + + + + MUMPS IGG AB, SERUM (11/11/2019 2:07 PM PDT) + + + + + + | Component | Value | Ref Range | Performed | Pathologist | | | | | At | Signature | + + + + + + | MUMPS IGG | 200.0Comment: | AU/mL | [facility] | | | AB TITER | INTERPRETIVE | | REG UNIV | | | | INFORMATION: Mumps Ab, | | PTH - INTFC | | | | IgG by CHRISTINE 8.9 AU/mL | | | | | | or less .... Negative - | | | | | | No significant level of | | | | | | | | | | | | detectable | | | | | | IgG mumps virus antibody | | | | | | 9.0-10.9 AU/mL | | | | | | ....... Equivocal - | | | | | | Repeat testing in 10-14 | | | | | | | | | | | | days may be | | | | | | helpful 11.0 AU/mL or | | | | | | greater: Positive - IgG | | | | | | antibody to mumps | | | | | | | | | | | | virus detected, | | | | | | which may indicate | | | | | | | | | | | | a current or past | | | | | | exposure/ | | | | | | | | | | | | immunization to mumps | | | | | | virus. The best | | | | | | evidence for current | | | | | | infection is a | | | | | | significant change on | | | | | | two appropriately timed | | | | | | specimens, where both | | | | | | tests are done in the | | | | | | same laboratory at the | | | | | | same time.Performed by | | | | | | [facility],[address] | | | | | | [address] [place] | | | | | | [address] | | | | | | [phone].[facility]. | | | | | | Mio su MD, | | | | | | Lab. Director | | | | + + + + + + + + | Specimen | + + | Blood - Blood | | (substance) | + + + + + + + | Performing | Address | City/State/Zipcode | Phone Number | | Organization | | | | + + + + + | [facility] | [address] | [place], [place] | | | UNIV PTH - INTFC | | [address] | | + + + + + MEASLES (RUBEOLA) IGG (11/11/2019 2:07 PM PDT) + + + + + + | Component | Value | Ref Range | Performed | Pathologist | | | | | At | Signature | + + + + + + | MEASLES IGG | 27.4Comment: | AU/mL | [facility] | | | RESULT | INTERPRETIVE | | REG UNIV | | | | INFORMATION: Measles | | PTH - INTFC | | | | (Rubeola) Antibody, IgG | | | | | | 13.4 AU/mL or | | | | | | less........ Negative - | | | | | | No significant level | | | | | | | | | | | | of | | | | | | detectable measles | | | | | | (rubeola) | | | | | | | | | | | | IgG antibody. | | | | | | 13.5-16.4 AU/mL | | | | | | .......... Equivocal - | | | | | | Repeat testing in | | | | | | | | | | | | 10-14 days | | | | | | may be helpful. 16.5 | | | | | | AU/mL or greater .... | | | | | | Positive - IgG antibody | | | | | | to | | | | | | | | | | | | measles (rubeola) | | | | | | detected | | | | | | | | | | | | which may indicate a | | | | | | current | | | | | | | | | | | | or past | | | | | | exposure/immunization | | | | | | | | | | | | to | | | | | | measles (rubeola). The | | | | | | best evidence for | | | | | | current infection is a | | | | | | significant change on | | | | | | two appropriately timed | | | | | | specimens, where both | | | | | | tests are done in the | | | | | | same laboratory at the | | | | | | same time.Performed by | | | | | | [facility],[address] | | | | | | [address], [facility] [place] | | | | | | [address] | | | | | | [phone].[employer]. | | | | | | [facility], Mio Jauregui MD, | | | | | | Lab. Director | | | | + + + + + + + + | Specimen | + + | Blood - Blood | | (substance) | + + + + + + + | Performing | Address | City/State/Zipcode | Phone Number | | Organization | | | | + + + + + | [facility] | [address] | [place], [place] | | | UNIV PTH - INTFC | | [address] | | + + + + + URINE, MICROSCOPIC EXAM (11/11/2019 2:07 PM PDT) + + + + + + | Component | Value | Ref Range | Performed | Pathologist | | | | | At | Signature | + + + + + + | RED CELLS | 5 (H) | 0 - 3 /hpf | [facility] | | | | | | LABORATORY | | | | | | SERVICES, | | | | | | CORE | | + + + + + + | WHITE CELLS | 49 (H) | 0 - 5 /hpf | [facility] | | | | | | LABORATORY | | | | | | SERVICES, | | | | | | CORE | | + + + + + + | BACTERIA | Moderate (A) | None /hpf | [facility] | | | | | | LABORATORY | | | | | | SERVICES, | | | | | | CORE | | + + + + + + | YEAST (LAB) | None | None /hpf | [facility] | | | | | | LABORATORY | | | | | | SERVICES, | | | | | | CORE | | + + + + + + | SQUAMOUS | Few | None, Few /hpf | [facility] | | | EPITHELIAL | | | LABORATORY | | | | | | SERVICES, | | | | | | CORE | | + + + + + + | MUCOUS | None | None, Few /hpf | [facility] | | | | | | LABORATORY | | | | | | SERVICES, | | | | | | CORE | | + + + + + + | NON-SQUAMOU | Few (A) | None /hpf | [facility] | | | S EPITH | | | LABORATORY | | | | | | SERVICES, | | | | | | CORE | | + + + + + + | HYALINE | 0 | 0 - 2 /lpf | [facility] | | | CASTS | | | LABORATORY | | | | | | SERVICES, | | | | | | CORE | | + + + + + + | GRANULAR | 0 | 0 - 2 /lpf | [facility] | | | CASTS | | | LABORATORY | | | | | | SERVICES, | | | | | | CORE | | + + + + + + | CELLULAR | 0 | <=0 /lpf | [facility] | | | CASTS | | | LABORATORY | | | | | | SERVICES, | | | | | | CORE | | + + + + + + | TRIPLE P04 | None | None, Few /hpf | [facility] | | | CRYSTALS | | | LABORATORY | | | | | | SERVICES, | | | | | | CORE | | + + + + + + | CALCIUM | None | None, Few /hpf | [facility] | | | OXALATE | | | LABORATORY | | | AUGUSTUS | | | SERVICES, | | | | | | CORE | | + + + + + + | URIC ACID | None | None, Few /hpf | [facility] | | | CRYSTALS | | | LABORATORY | | | | | | SERVICES, | | | | | | CORE | | + + + + + + | AMORPHOUS | None | None, Few /hpf | [facility] | | | CRYSTALS | | | LABORATORY | | | | | | SERVICES, | | | | | | CORE | | + + + + + + + + | Specimen | + + | Urine | + + + + + + + | Performing | Address | City/State/Zipcode | Phone Number | | Organization | | | | + + + + + | [facility] | [address] | [place] [address] | | | SERVICES, CORE | [address] | | | + + + + + UA, DIPSTICK ONLY (11/11/2019 2:07 PM PDT) + + + + + + | Component | Value | Ref Range | Performed | Pathologist | | | | | At | Signature | + + + + + + | COLOR(UR) | Yellow | | [facility] | | | | | | LABORATORY | | | | | | SERVICES, | | | | | | CORE | | + + + + + + | APPEARANCE | Sl.Cloudy | | [facility] | | | | | | LABORATORY | | | | | | SERVICES, | | | | | | CORE | | + + + + + + | GLUCOSE(UR) | Negative | Negative, 50.0 | [facility] | | | | | mg/dL | LABORATORY | | | | | | SERVICES, | | | | | | CORE | | + + + + + + | PROTEIN(LAB | 100.0 (A) | Negative, 30.0 | [facility] | | | ) | | mg/dL | LABORATORY | | | | | | SERVICES, | | | | | | CORE | | + + + + + + | BILIRUBIN | Negative | Negative | [facility] | | | | | | LABORATORY | | | | | | SERVICES, | | | | | | CORE | | + + + + + + | UROBILINOGE | <2.0 | <2.0 mg/dL | [facility] | | | N | | | LABORATORY | | | | | | SERVICES, | | | | | | CORE | | + + + + + + | PH(UR) | 8.0 | 5.0 - 8.0 | [facility] | | | | | | LABORATORY | | | | | | SERVICES, | | | | | | CORE | | + + + + + + | BLOOD | Negative | Negative | [facility] | | | | | | LABORATORY | | | | | | SERVICES, | | | | | | CORE | | + + + + + + | KETONES | Negative | Negative mg/dL | [facility] | | | | | | LABORATORY | | | | | | SERVICES, | | | | | | CORE | | + + + + + + | NITRITES | Negative | Negative | [facility] | | | | | | LABORATORY | | | | | | SERVICES, | | | | | | CORE | | + + + + + + | LEUKOCYTE | Large (A) | Negative | [facility] | | | ESTERASE | | | LABORATORY | | | | | | SERVICES, | | | | | | CORE | | + + + + + + | SPECIFIC | 1.010Comment: Specific | 1.005 - 1.030 | [facility] | | | GRAVITY | Stanley performed by | | LABORATORY | | | | refractometry | | SERVICES, | | | | | | CORE | | + + + + + + + + | Specimen | + + | Urine | + + + + + + + | Performing | Address | City/State/Zipcode | Phone Number | | Organization | | | | + + + + + | [facility] | [address] | [place] [address] | | | SERVICES, CORE | [address] | | | + + + + + INR (11/11/2019 2:07 PM PDT) + + + + + + | Component | Value | Ref Range | Performed | Pathologist | | | | | At | Signature | + + + + + + | INR | 2.02 (H) | 0.90 - 1.20 INR | [facility] | | | | | | LABORATORY | | | | | | SERVICES, | | | | | | CORE | | + + + + + + + + | Specimen | + + | Blood - Blood | | (substance) | + + + + + | Narrative | Performed At | + + + | INR Therapeutic ranges for full anticoagulation: INR for Venous | [facility] | | Thromboembolism (2.0 - 3.0) INR INR for most | LABORATORY | | patients with mech. valves (2.5 - 3.5) INR | SERVICES, CORE | + + + + + + + + | Performing | Address | City/State/Zipcode | Phone Number | | Organization | | | | + + + + + | [facility] | [address] | [place] [address] | | | SERVICES, CORE | [address] | | | + + + + + APTT (ACT. PART. THROMBO TIME) (11/11/2019 2:07 PM PDT) + + + + + + | Component | Value | Ref Range | Performed | Pathologist | | | | | At | Signature | + + + + + + | APTT | 37.8 (H) | 26.0 - 36.0 | [facility] | | | | | seconds | LABORATORY | | | | | | SERVICES, | | | | | | CORE | | + + + + + + + + | Specimen | + + | Blood - Blood | | (substance) | + + + + + | Narrative | Performed At | + + + | APTT values for monitoring heparin therapy may be affected by | [facility] | | specimens processed >1 hour after collection. APTT Therapeutic | LABORATORY | | Range: (75 - 120) sec Heparin | SERVICES, CORE | | levels of 0.35 - 0.7 U/mL | | + + + + + + + + | Performing | Address | City/State/Zipcode | Phone Number | | Organization | | | | + + + + + | [facility] | [address] | [place] [address] | | | SERVICES, CORE | [address] | | | + + + + + CHOLESTEROL TOTAL, PLASMA (11/11/2019 2:07 PM PDT) + +-------+ + + + | Component | Value | Ref Range | Performed | Pathologist | | | | | At | Signature | + +-------+ + + + | CHOLESTEROL | 155 | <200 mg/dL | [facility] | | | (LAB) | | | LABORATORY | | | | | | SERVICES, | | | | | | CORE | | + +-------+ + + + + + | Specimen | + + | Blood - Blood | | (substance) | + + + + + + + | Performing | Address | City/State/Zipcode | Phone Number | | Organization | | | | + + + + + | [facility] | [address] | [place] [address] | | | UNA, CORE | [address] | | | + + + + + LDH TOTAL, PLASMA (11/11/2019 2:07 PM PDT) + +---------+ + + + | Component | Value | Ref Range | Performed | Pathologist | | | | | At | Signature | + +---------+ + + + | LD TOTAL, | 231 | <=250 U/L | [facility] | | | PLASMA | | | LABORATORY | | | | | | SERVICES, | | | | | | CORE | | + +---------+ + + + | LD CMNT | No Hemo | | [facility] | | | | | | LABORATORY | | | | | | SERVICES, | | | | | | CORE | | + +---------+ + + + + + | Specimen | + + | Blood - Blood | | (substance) | + + + + + + + | Performing | Address | City/State/Zipcode | Phone Number | | Organization | | | | + + + + + | [facility] | [address] | [place] [address] | | | SERVICES, CORE | [address] | | | + + + + + BILIRUBIN DIRECT (11/11/2019 2:07 PM PDT) + +---------+ + + + | Component | Value | Ref Range | Performed | Pathologist | | | | | At | Signature | + +---------+ + + + | BILIRUBIN | 0.1 | 0.0 - 0.3 mg/dL | [facility] | | | DIRECT | | | LABORATORY | | | | | | SERVICES, | | | | | | CORE | | + +---------+ + + + | ANSLEY Rousseau CMNT | No Hemo | | [facility] | | | | | | LABORATORY | | | | | | SERVICES, | | | | | | CORE | | + +---------+ + + + + + | Specimen | + + | Blood - Blood | | (substance) | + + + + + + + | Performing | Address | City/State/Zipcode | Phone Number | | Organization | | | | + + + + + | [facility] | [address] | [place] [address] | | | SERVICES, CORE | [address] | | | + + + + + URIC ACID, PLASMA (11/11/2019 2:07 PM PDT) + +---------+ + + + | Component | Value | Ref Range | Performed | Pathologist | | | | | At | Signature | + +---------+ + + + | URIC ACID, | 3.5 (L) | 3.7 - 8.0 mg/dL | [facility] | | | PLASMA | | | LABORATORY | | | (LAB) | | | SERVICES, | | | | | | CORE | | + +---------+ + + + + + | Specimen | + + | Blood - Blood | | (substance) | + + + + + + + | Performing | Address | City/State/Zipcode | Phone Number | | Organization | | | | + + + + + | [facility] | [address] | [place] [address] | | | SERVICES, CORE | [address] | | | + + + + + PHOSPHORUS, PLASMA (11/11/2019 2:07 PM PDT) + +-------+ + + + | Component | Value | Ref Range | Performed | Pathologist | | | | | At | Signature | + +-------+ + + + | PHOSPHORUS, | 3.6 | 2.4 - 4.7 mg/dL | [facility] | | | PLASMA | | | LABORATORY | | | (LAB) | | | SERVICES, | | | | | | CORE | | + +-------+ + + + + + | Specimen | + + | Blood - Blood | | (substance) | + + + + + + + | Performing | Address | City/State/Zipcode | Phone Number | | Organization | | | | + + + + + | [facility] | [address] | [place] [address] | | | SERVICES, CORE | [address] | | | + + + + + MAGNESIUM, PLASMA (11/11/2019 2:07 PM PDT) + +-------+ + + + | Component | Value | Ref Range | Performed | Pathologist | | | | | At | Signature | + +-------+ + + + | MAGNESIUM,P | 2.6 | 1.6 - 2.6 mg/dL | [facility] | | | LASMA | | | LABORATORY | | | | | | SERVICES, | | | | | | CORE | | + +-------+ + + + + + | Specimen | + + | Blood - Blood | | (substance) | + + + + + + + | Performing | Address | City/State/Zipcode | Phone Number | | Organization | | | | + + + + + | [facility] | [address] | [place] [address] | | | SERVICES, CORE | [address] | | | + + + + + COMPLETE METABOLIC SET (NA,K,CL,CO2,BUN,CREAT,GLUC,CA,AST,ALT,BILI TOTAL,ALK PHOS,ALB,PROT TOTAL) (11/11/2019 2:07 PM PDT) + + + + + + | Component | Value | Ref Range | Performed | Pathologist | | | | | At | Signature | + + + + + + | GLUCOSE, | 132 (H) | 70 - 99 mg/dL | [facility] | | | PLASMA | | | LABORATORY | | | (LAB) | | | SERVICES, | | | | | | CORE | | + + + + + + | BUN, PLASMA | 27 (H) | 6 - 20 mg/dL | [facility] | | | (LAB) | | | LABORATORY | | | | | | SERVICES, | | | | | | CORE | | + + + + + + | CREATININE | 5.67 (H) | 0.70 - 1.30 | [facility] | | | PLASMA | | mg/dL | LABORATORY | | | (LAB) | | | SERVICES, | | | | | | CORE | | + + + + + + | EGFR | 13 (L) | >60 mL/min | [facility] | | | - | | | LABORATORY | | | SWISS | | | SERVICES, | | | | | | CORE | | + + + + + + | EGFR NON | 10 (L) | >60 mL/min | [facility] | | | -YEHUDA | | | LABORATORY | | | RICAN | | | SERVICES, | | | | | | CORE | | + + + + + + | SODIUM, | 134 (L) | 136 - 145 | [facility] | | | PLASMA | | mmol/L | LABORATORY | | | (LAB) | | | SERVICES, | | | | | | CORE | | + + + + + + | POTASSIUM, | 4.6 | 3.4 - 5.0 | [facility] | | | PLASMA | | mmol/L | LABORATORY | | | (LAB) | | | SERVICES, | | | | | | CORE | | + + + + + + | CHLORIDE, | 94 (L) | 97 - 108 mmol/L | [facility] | | | PLASMA | | | LABORATORY | | | (LAB) | | | SERVICES, | | | | | | CORE | | + + + + + + | TOTAL CO2, | 37 (H) | 21 - 32 mmol/L | [facility] | | | PLASMA | | | LABORATORY | | | (LAB) | | | SERVICES, | | | | | | CORE | | + + + + + + | CALCIUM, | 9.6 | 8.6 - 10.2 | [facility] | | | PLASMA | | mg/dL | LABORATORY | | | (LAB) | | | SERVICES, | | | | | | CORE | | + + + + + + | CALCIUM(ALB | 9.8 | 8.6 - 10.2 | [facility] | | | CORRECTED) | | mg/dL | LABORATORY | | | | | | SERVICES, | | | | | | CORE | | + + + + + + | BILIRUBIN | 0.7 | 0.3 - 1.2 mg/dL | [facility] | | | TOTAL | | | LABORATORY | | | | | | SERVICES, | | | | | | CORE | | + + + + + + | TOTAL | 8.4 (H) | 6.4 - 8.2 g/dL | [facility] | | | PROTEIN, | | | LABORATORY | | | PLASMA | | | SERVICES, | | | (LAB) | | | CORE | | + + + + + + | ALBUMIN, | 3.7 | 3.5 - 4.7 g/dL | [facility] | | | PLASMA | | | LABORATORY | | | (LAB) | | | SERVICES, | | | | | | CORE | | + + + + + + | ALK PHOS | 101 | 53 - 128 U/L | [facility] | | | | | | LABORATORY | | | | | | SERVICES, | | | | | | CORE | | + + + + + + | AST(SGOT) | 52 (H) | <=41 U/L | [facility] | | | | | | LABORATORY | | | | | | SERVICES, | | | | | | CORE | | + + + + + + | ALT (SGPT) | 49 | <=60 U/L | [facility] | | | | | | LABORATORY | | | | | | SERVICES, | | | | | | CORE | | + + + + + + | ANION GAP | 3 (L) | 4 - 11 mmol/L | [facility] | | | | | | LABORATORY | | | | | | SERVICES, | | | | | | CORE | | + + + + + + | ANION | 3 (L) | 4 - 11 mmol/L | [facility] | | | GAP(ALB | | | LABORATORY | | | CORRECTED) | | | SERVICES, | | | | | | CORE | | + + + + + + | POTASSIUM | No Hemo | | [facility] | | | CMNT | | | LABORATORY | | | | | | SERVICES, | | | | | | CORE | | + + + + + + | BILI T CMNT | No Hemo | | [facility] | | | | | | LABORATORY | | | | | | SERVICES, | | | | | | CORE | | + + + + + + | AST CMNT | No Hemo | | [facility] | | | | | | LABORATORY | | | | | | SERVICES, | | | | | | CORE | | + + + + + + | BUN/CREATIN | 5 (L) | 8 - 25 | [facility] | | | INE RATIO | | | LABORATORY | | | | | | SERVICES, | | | | | | CORE | | + + + + + + | GLOBULIN | 4.7 (H) | 2.3 - 3.5 gm/dL | [facility] | | | LVL | | | LABORATORY | | | | | | SERVICES, | | | | | | CORE | | + + + + + + | ALBUMIN/HAL | 0.8 | 0.7 - 2.8 | [facility] | | | BULIN RATIO | | | LABORATORY | | | | | | SERVICES, | | | | | | CORE | | + + + + + + + + | Specimen | + + | Blood - Blood | | (substance) | + + + + + | Narrative | Performed At | + + + | GFR is estimated using the MDRD equation recommended by the National | [facility] | | Kidney Disease Education Program. Estimated GFR Interpretive | LABORATORY | | Information: <60 mL/min/1.73 sq m Chronic Kidney | SERVICES, CORE | | Disease <15 mL/min/1.73 sq m Kidney Failure | | | Estimated GFR greater than 60 mL/min/1.73 sq m is of limited clinical | | | value. The MDRD equation is not valid in the following situations: | | | - Patients under 18 years of age - Severe malnutrition or obesity | | | - Vegetarian diet - Rapidly changing kidney function - Amputees, | | | paraplegics, or other muscle-wasting diseases | | + + + + + + + + | Performing | Address | City/State/Zipcode | Phone Number | | Organization | | | | + + + + + | [facility] | [address] | [place] [address] | | | [facility] | [address] | | | + + + + + LIT RBC GROUP TX KE, BLOOD (11/11/2019 2:07 PM PDT) + + | Specimen | + + | Blood - Blood | | (substance) | + + + + + + + | Performing | Address | City/State/Zipcode | Phone Number | | Organization | | | | + + + + + | [facility] | [address] | [place] [address] | | | [facility]MM[facility]ETICS[facility] | [address] | | | | [facility] | | | | + + + + + LIT HLA-A LOW RES-KE (11/11/2019 2:07 PM PDT) + + | Specimen | + + | Blood - Blood | | (substance) | + + + + + + + | Performing | Address | City/State/Zipcode | Phone Number | | Organization | | | | + + + + + | [facility] - | [address] | [place] [address] | | | [facility]MMUNOGENETICS[facility]TRANS | [address] | | | | [facility] | | | | + + + + + LIT HLA-B LOW RES-DERRELL (11/11/2019 2:07 PM PDT) + + | Specimen | + + | Blood - Blood | | (substance) | + + + + + + + | Performing | Address | City/State/Zipcode | Phone Number | | Organization | | | | + + + + + | [facility] - | [address] | [place] [address] | | | IMMUNOGENETICS[facility]TRANS | [address] | | | | [facility] | | | | + + + + + LIT HLA-C JONI BROOKS (11/11/2019 2:07 PM PDT) + + | Specimen | + + | Blood - Blood | | (substance) | + + + + + + + | Performing | Address | City/State/Zipcode | Phone Number | | Organization | | | | + + + + + | [facility] - | [address] | [place], [place] | | | IMMUNOGENETICS[facility]TRANS | [address] | | | | [facility] | | | | + + + + + LIT HLA-DR LOW RES-KE (11/11/2019 2:07 PM PDT) + + | Specimen | + + | Blood - Blood | | (substance) | + + + + + + + | Performing | Address | City/State/Zipcode | Phone Number | | Organization | | | | + + + + + | [facility] - | [address] | [place], [place] | | | IMMUNOGENETICS[facility]TRANS | [address] | | | | [facility] | | | | + + + + + LIT HLA-DP LOW RES- KE (11/11/2019 2:07 PM PDT) + + | Specimen | + + | Blood - Blood | | (substance) | + + + + + + + | Performing | Address | City/State/Zipcode | Phone Number | | Organization | | | | + + + + + | [facility] - | [address] | [place] [address] | | | IMMUNOGENETICS[facility]TRANS | [address] | | | | [facility] | | | | + + + + + LIT FLOW HLA II AB AG ID KE, BLOOD (11/11/2019 2:07 PM PDT) + + | Specimen | + + | Blood - Blood | | (substance) | + + + + + + + | Performing | Address | City/State/Zipcode | Phone Number | | Organization | | | | + + + + + | [facility] - | [address] | [place] [address] | | | [facility] | [address] | | | | [facility] | | | | + + + + + LIT FLOW HLA I AB ID KE, BLOOD (11/11/2019 2:07 PM PDT) + + + + + + | Component | Value | Ref Range | Performed | Pathologist | | | | | At | Signature | + + + + + + | LABEL ONLY | Please see lab report | | [facility] - | | | - LIT | for result. | | [facility] | | | | | | [facility] | | | | | | ANT | | | | | | LABORATORY | | + + + + + + + + | Specimen | + + | Blood - Blood | | (substance) | + + + + + + + | Performing | Address | City/State/Zipcode | Phone Number | | Organization | | | | + + + + + | [facility] - | [address] | [place] [address] | | | [facility] | [address] | | | | [facility] | | | | + + + + + LIT HLA-DQ LOW TODD (11/11/2019 2:07 PM PDT) + + | Specimen | + + | Blood - Blood | | (substance) | + + + + + + + | Performing | Address | City/State/Zipcode | Phone Number | | Organization | | | | + + + + + | [facility] - | [address], | [place] [address] | | | [facility] | [address] | | | | [facility] | | | | + + + + + documented in this encounter Visit Diagnoses + + | Diagnosis | + + | Type 2 diabetes mellitus with ESRD (end-stage renal disease) (HCC) Type II or | | unspecified type diabetes mellitus with renal manifestations, not stated as uncontrolled | + + documented in this encounter
--- OUTSIDE RECORDS SUMMARY | ~2019-12-30 | XMS | Encounter Summary ---
Demographics + + + | Address | [address] | | | [place] [address] | + + + | Home Phone | | + + + | Preferred Language | Unknown | + + + | Marital Status | Unknown | + + + | Mormon Affiliation | [id number] | + + + | Race | Unknown | + + + | Ethnic Group | Unknown | + + + Author + + + | Author | [facility] | | | and [place] | + + + | Organization | [facility] | | | and [...] Team Providers + +------+ + | Care Dial Lathe Operator Name | Role | Phone | + +------+ + PCP | Unavailable | + +------+ + Encounter Details +--------+ + + + + | Date | Type | Department | Care Team | Description | +--------+ + + + + | 01/08/ | Hospital | [facility] | Conversion | Mesenteric arterial | | 2013 | Encounter | CENTER [facility] OP | Transaction, | bleeding | | | | [address] | Provider Unknown | | | | | [place], [place] | [phone] | | | | | [address] | | | | | | [phone] | Juan Timmons MD | | | | | | [address] | | | | | | [address] [place], [place] | | | | | | [address] | | | | | | | [...] Progress Notes Conversion Transaction, Provider Unknown - 01/08/2013 3:46 PM PDTFormatting of this note m ight be different from the original. Progress Notes by Gemini Triplett RN at 01/08/13 154 Author: Gemini Triplett RN Service: (none) Author Type: Registered Nurse Filed: 01/08/13 1547 Date of Service: 01/08/131545 Status: Signed Blanket Cutting Machine Operator: Gemini Triplett RN (Registered Nurse) Pt ready to go home, tolerated juice and crackers well. Dr. Lee spoke with patient and spouse regarding findings, discharge instructions given both written and orally. Will disch arge pt by wheelchair with spouse. docume nted in this encounter H&P Notes Bhanu Lee MD, MD - 01/08/2013 3:00 PM PDTFormatting of this note might be diffe rent from the original. H&P by Priscilla Lee MD at 01/08/13 1500 Author: Priscilla Lee MD Service: (none) Author Type: Physician Filed: 01/08/13 2558 Date of Service: 01/08/131499 Status: Signed Blanket Cutting Machine Operator: Priscilla Lee MD (Physician) [facility] Service: Interventional Radiology Admission History & Physical Date of Admission: 01/08/2013 Requesting Physician: [facility] Reason for Admission: Increased bleeding after dialysis History Obtained From: patient CHIEF COMPLAINT: Increased bleeding at dialysis site after access removal. HISTORY OF PRESENT ILLNESS The patient is a 47 y.o. male with significant past medical history of ESRD who presents w ith Left maame brachiobasilic fistula has high venous pressures. Needs fistula evaluation. REVIEW OF SYSTEMS Negative except for pertinent items noted in HPI. Past Medical History Diagnosis Date Hyperlipidemia Hypertension Diabetes mellitus type II Thyroid disease Anemia Abdominal pain, right upper quadrant 04/13/2012 Dialysis patient GI bleed 04/30/2012 from coumadin Neuromuscular disorder neuropathy Hemodialysis patient Walker as ambulation aid Gout Asthma pt not using inhaler any more, no symptoms DVT (deep venous thrombosis) x3 AV fistula lt arm Knee pain, right 07/06/2012 Acute posthemorrhagic anemia 04/29/2012 Hyponatremia 04/14/2012 MSSA (methicillin susceptible Staphylococcus aureus) infection 04/11/2012 Anemia due to blood loss 04/30/2012 Bacteremia due to Gram-positive bacteria 05/15/2012 Amphetamine and other psychostimulant dependence, continuous 04/02/2012 Chronic kidney disease dialysis Hypokalemia 04/16/2012 Hyperphosphatemia 05/24/2012 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 Bacteremia due to Staphylococcus 07/06/2012 Rash and nonspecific skin eruption 04/03/2012 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 Past Surgical History Procedure Date Colonoscopy with egd 05/01/2012 Procedure: COLONOSCOPY W/ EGD; Surgeon: John Singleton MD; Location: [facility] ENDOSCOPY; Se rvice: Gastroenterology; Laterality: N/A; Av fistula placement 05/06/2012 Procedure: AV FISTULA; Surgeon: Oskar Meyer MD; Location: [facility] MAIN OR; Service: Vascul ar; Laterality: Left; Left arm possible right Unlisted procedure arthroscopy shoulder rt , ligaments Knee arthroscopy 07/07/2012 Procedure: KNEE - ARTHROSCOPY; Surgeon: Favio Raza MD; Location: [facility] MAIN OR; S ervice: Orthopedics; Laterality: Right; After 1530 Catheter removal 07/07/2012 Procedure: DIALYSIS CATHETER REMOVAL; Surgeon: Oskar Meyer MD; Location: [facility] BEDSIDE SC OCEDURE; Service: General; Laterality: Right; perm cath Dialysis fistula creation 07/07/2012 Procedure: DIALYSIS CATHETER INSERTION; Surgeon: Oskar Meyer MD; Location: [facility] BEDSIDE PROCEDURE; Service: General; Laterality: Left; temporary dialysis catheter Av fistula repair 07/11/2012 Procedure: AV FISTULA GRAFT REPAIR/REVISION; Surgeon: Oskar Meyer MD; Location: [facility] OR; Service: Vascular; Laterality: Left; Superficialization of brachiobasilic fistula and right IJ perm cath insertion Dialysis fistula creation 07/11/2012 Procedure: DIALYSIS CATHETER INSERTION; Surgeon: Oskar Meyer MD; Location: [facility] MAIN OR; Service: Vascular; Laterality: Left; removed dialysis catheter from left neck and placed new on in left chest, attempted in right neck but unable to place Allergies Allergen Reactions Lisinopril Other (See Comments) "makes me sweat and knocked me out" Penicillins Other (See Comments) Unknown 10/08/12: Patient tolerated Ceftriaxone during previous admissions. Prescriptions prior to admission Medication Sig Dispense Refill albuterol (PROVENTIL) (2.5 MG/3ML) 0.083% nebulizer solution Take 2.5 mg by nebulizatio n every 6 (six) hours as needed. allopurinol (ZYLOPRIM) 300 MG tablet Take 300 mg by mouth daily. ALPRAZolam (XANAX) 0.5 MG tablet Take 0.5 mg by mouth nightly as needed. amlodipine (NORVASC) 10 MG tablet Take 10 mg by mouth nightly. b complex-vitamin c-folic acid (NEPHRO-THU) 0.8 MG TABS Take 1 tablet by mouth daily. carvedilol (COREG) 3.125 MG tablet Take 3.125 mg by mouth 2 (two) times daily with meal s. Cholecalciferol 2000 UNITS TABS Take 1 tablet by mouth daily. citalopram (CELEXA) 20 MG tablet Take 20 mg by mouth nightly. cyclobenzaprine (FLEXERIL) 10 MG tablet Take 10 mg by mouth 3 (three) times daily as ne eded. ergocalciferol (DRISDOL) 70306 UNITS capsule Take 1 capsule by mouth once a week. 3 ca psule 0 furosemide (LASIX) 20 MG tablet Take 20 mg by mouth daily. HYDROcodone-acetaminophen (NORCO) 10-325 MG per tablet Take 1 tablet by mouth every 6 ( six) hours as needed. 30 tablet 0 levothyroxine (SYNTHROID, LEVOTHROID) 50 MCG tablet Take 50 mcg by mouth daily. loperamide (IMODIUM) 2 MG capsule Take 2 mg by mouth 4 (four) times daily as needed. Indications: Diarrhea omeprazole (PRILOSEC) 40 MG capsule Take 40 mg by mouth daily. sevelamer (RENVELA) 800 MG tablet Take 800 mg by mouth 3 (three) times daily with meals . sodium bicarbonate 650 MG tablet Take 1,300 mg by mouth 2 (two) times daily. DISCONTD: doxycycline (VIBRA-TABS) 100 MG tablet Take 1 tablet by mouth 2 (two) times d aily. 60 tablet 4 DISCONTD: megestrol (MEGACE) 40 MG/ML suspension Take 200 mg by mouth daily. Family History Problem Relation Age of Onset Heart disease Mother Heart disease Father Diabetes Father Cancer Father colon cancer History Social History Marital Status: Spouse Name: Shyanne Number of Children: N/A Years of Education: N/A Occupational History Not on file. Social History Main Topics Smoking status: Never Smoker Smokeless tobacco: Never Used Alcohol Use: No Drug Use: No last used marijuana on 04/29/12, quit methaamphetamine in mar 2012 after ARF Sexually Active: Not on file Other Topics Concern Not on file Social History Narrative , LIVES WITH . HAS NO BIOLOGICAL KIDS; 2 STEP KIDS. CURRENTLY UNEMPLOYED, BEFOR E WORKED AT [employer] IN [place]. Quit METHAMPHETAMINES PER PATIENT after t he ARF in mar 2012. FATHER HAS COLON CANCER, HEART DISEASE, MOTHER 15 YEARS AGO. NO FH KIDNEY PROBLEMS. PHYSICAL EXAM Vital Signs: BP 132/79 | Pulse 71 | Temp 97.8 F (36.6 C) (Skin) | Resp 16 | Ht 1.702 m (5' 7") | Wt 65.772 kg (145 lb) | BMI 22.71 kg/m2 | SpO2 99% General appearance: alert, appears stated age and [...] normal, atraumatic, no cyanosis or edema and Left arm AV fistula n oted with pulsation. No thrill. Neurologic: Grossly normal DATA CBC: Lab Results Component Value Date WBC 4.1 12/15/2012 RBC 4.12* 12/15/2012 HGB 11.3* 12/15/2012 HCT 37* 12/15/2012 MCV 88.9 12/15/2012 MCH 27.0 12/15/2012 MCHC 31 12/15/2012 RDW 18.3* 12/15/2012 PLT 264 12/15/2012 MPV 7.2 10/15/2012 DIFFTYPE AUTOMATED 10/15/2012 PROBLEM LIST Active Problems: * No active hospital problems. * ASSESSMENT & PLAN Poor function and high pressures in left arm AVF needs fistula gram and possible angioplast y. Patient would be a candidate for left arm fistula gram and possible endovascular interventi on. We discussed the procedure, risks ( Bleeding, infection, contrast allergy, vessel injury with need for stenting or surgery) and alternatives with the patient. They understood the d iscussion and expressed their wish to proceed. Disposition: cathlab. Code Status: Prior Primary Care Physician: [facility] PRISCILLA LEE MD 01/08/2013 documented i n this encounter Plan of Treatment Not on filedocumented as of this encounter Procedures + +--------+ + + + | Procedure Name | Priori | Date/Time | Associated Diagnosis | Comments | | | ty | | | | + +--------+ + + + | IR INJECTION | Routin | 01/08/2013 | | Results for this | | DIALYSIS CIRCUIT W | e | 3:05 PM | | procedure are in the | | ANGIOPLASTY | | PDT | | results section. | + +--------+ + + + | IR INJECTION | Routin | 01/08/2013 | | Results for this | | DIALYSIS CIRCUIT | e | 3:05 PM | | procedure are in the | | | | PDT | | results section. | + +--------+ + + + documented in this encounter Results IR Inj Dialysis Circuit w Angioplasty (01/08/2013 3:05 PM PDT) + + | Specimen | + + | | + + + + + | Narrative | Performed At | + + + | [facility] 01/08/2013 1:57 PM HISTORY: | | | 47 years. Male. With chronic kidney disease stage V presents with | | | prolonged bleeding after dialysis access. EXAMINATION Left | | | brachiobasilic fistulogram and angioplasty of the multiple tandem | | | stenosis in proximal left basilic vein using 7-mm by 4 cm balloon | | | catheter. MEDICATIONS: Isovue-200 30 cc, Heparin 3300 units | | | intravenous, Versed 0 mg intravenous, fentanyl 50-mcg intravenous. | | | Intra-procedure sedation time 32 minutes. The radiation dose 19 | | | mGray, Fluoroscopy time 5 minutes. Appropriate physiologic | | | monitoring, maintenance of adequate conscious sedation and | | | independent assisted supervision performed throughout the | | | procedure. PROCEDURE: Informed written consent obtained from | | | the patient after explaining the procedure, risks and alternatives. | | | Patient understood the discussion and expressed a wish to proceed. | | | The appropriate side and site was labeled and initialed as an | | | independent process antecedent to the imaging and intervention, as per | | | protocol at this institution. Patient was placed supine on the | | | x-ray table. The left arm prepped in the usual sterile fashion. | | | Left arm AV fistula was accessed using micropuncture needle and | | | exchanged for 4-Finnish micropuncture sheath. Initial fistula | | | pressure was obtained and fistulogram obtained from the left cubital | | | fossa to the right atrium. 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 | | | 4-Finnish micropuncture sheath was exchanged for 6-Finnish short | | | sheath over a 0.035, angled Glidewire. Using combination of the | | | 4-Finnish angled glide catheter and 0.035 angled Glidewire multiple | | | attempts to traverse the occluded distal left basilic vein was | | | unsuccessful. Subsequently, 4-Finnish angled glide catheter was | | | exchanged for 7 mm x 4 cm balloon catheter and angioplasty of the | | | multiple, significant stenosis in proximal portion the basilic vein | | | performed. Final fistula pressure and arterial pressures were | | | obtained. All catheters and wires then removed and hemostasis | | | obtained with manual pressure. No immediate procedural | | | complications. Patient tolerated the procedure well. FINDINGS | | | 1. Initial fistula pressure 114/59 mm Hg, arterial pressure 159/76 | | | mm Hg, final fistula pressure 117/61 mm Hg. 2. Left brachia | | | cephalic fissure gram revealed multiple focal stenosis in proximal | | | left basilic vein. There is occlusion of the distal left basilic | | | vein with reconstitution of the distal flow through cephalic vein | | | through multiple venous collaterals. Central veins are widely | | | patent. 3. Successful angioplasty of the multifocal stenosis in | | | proximal left basilic vein using 7-mm balloon. 4. Attempt to | | | traverse the occlusion in distal left basilic vein was unsuccessful. | | | IMPRESSION: 1. Successful left brachiobasilic fistulogram and | | | angioplasty of the significant, multiple tandem stenosis in proximal | | | left basilic vein without incidence. 2. Failed attempt to | | | recanalize occluded distal left basilic vein. Patient would benefit | | | from distal left basilic occlusion though cephalic venous bypass | | | versus new AV fistula in right arm. | | + + + + ---------+ | Procedure Note | + ---------+ | Néstor, Rad Conversion - 02/13/2019 4:30 PM PDT [facility] | | FISTULAGRAM01/08/2013 1:57 PM HISTORY:47 years. Male. With chronic kidney disease stage | | V presents with prolonged bleeding after dialysis access. EXAMINATION Left | | brachiobasilic fistulogram and angioplasty of the multiple tandem stenosis in proximal | | left basilic vein using 7-mm by 4 cm balloon catheter. MEDICATIONS: Isovue-200 30 cc, | | Heparin 3300 units intravenous, Versed 0 mg intravenous, fentanyl 50-mcg intravenous. | | Intra-procedure sedation time 32 minutes. The radiation dose 19 mGray, Fluoroscopy | | time 5 minutes. Appropriate physiologic monitoring, maintenance of adequate conscious | | sedation and independent assisted supervision performed throughout the procedure. | | PROCEDURE: Informed written consent obtained from the patient after explaining the | | procedure, risks and alternatives. Patient understood the discussion and expressed a | | wish to proceed.The appropriate side and site was labeled and initialed as an | | independent process antecedent to the imaging and intervention, as per protocol at this | | institution. Patient was placed supine on the x-ray table. The left arm prepped in the | | usual sterile fashion. Left arm AV fistula was accessed using micropuncture needle and | | exchanged for 4-Finnish micropuncture sheath. Initial fistula pressure was obtained and | | fistulogram obtained from the left cubital fossa to the right atrium. Given the | | multiple tandem stenosis in proximal left basilic vein and occlusion of at the level of | | left axilla, I decided to perform angioplasty of the venous lesions. 4-Finnish | | micropuncture sheath was exchanged for 6-Finnish short sheath over a 0.035, angled | | Glidewire. Using combination of the 4-Finnish angled glide catheter and 0.035 angled | | Glidewire multiple attempts to traverse the occluded distal left basilic vein was | | unsuccessful. Subsequently, 4-Finnish angled glide catheter was exchanged for 7 mm x 4 | | cm balloon catheter and angioplasty of the multiple, significant stenosis in proximal | | portion the basilic vein performed. Final fistula pressure and arterial pressures were | | obtained. All catheters and wires then removed and hemostasis obtained with manual | | pressure. No immediate procedural complications. Patient tolerated the procedure well. | | FINDINGS1. Initial fistula pressure 114/59 mm Hg, arterial pressure 159/76 mm Hg, | | final fistula pressure 117/61 mm Hg.2. Left brachia cephalic fissure gram revealed | | multiple focal stenosis in proximal left basilic vein. There is occlusion of the distal | | left basilic vein with reconstitution of the distal flow through cephalic vein through | | multiple venous collaterals. Central veins are widely patent.3. Successful angioplasty | | of the multifocal stenosis in proximal left basilic vein using 7-mm balloon.4. Attempt | | to traverse the occlusion in distal left basilic vein was unsuccessful. IMPRESSION:1. | | Successful left brachiobasilic fistulogram and angioplasty of the significant, multiple | | tandem stenosis in proximal left basilic vein without incidence.2. Failed attempt to | | recanalize occluded distal left basilic vein. Patient would benefit from distal left | | basilic occlusion though cephalic venous bypass versus new AV fistula in right arm. | | | |IMPRESSION: | |1. 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 | |2. Failed attempt to recanalize occluded distal left basilic vein. Patient would benefit from distal left basilic occlusion though cephalic venous bypass versus new AV fistula in ri ght arm. | | | | | + ---------+ IR Inj Dialysis Circuit (01/08/2013 3:05 PM PDT) + + | Specimen | + + | | + + + + + | Narrative | Performed At | + + + | [facility] 01/08/2013 1:57 PM HISTORY: | | | 47 years. Male. With chronic kidney disease stage V presents with | | | prolonged bleeding after dialysis access. EXAMINATION Left | | | brachiobasilic fistulogram and angioplasty of the multiple tandem | | | stenosis in proximal left basilic vein using 7-mm by 4 cm balloon | | | catheter. MEDICATIONS: Isovue-200 30 cc, Heparin 3300 units | | | intravenous, Versed 0 mg intravenous, fentanyl 50-mcg intravenous. | | | Intra-procedure sedation time 32 minutes. The radiation dose 19 | | | mGray, Fluoroscopy time 5 minutes. Appropriate physiologic | | | monitoring, maintenance of adequate conscious sedation and | | | independent assisted supervision performed throughout the | | | procedure. PROCEDURE: Informed written consent obtained from | | | the patient after explaining the procedure, risks and alternatives. | | | Patient understood the discussion and expressed a wish to proceed. | | | The appropriate side and site was labeled and initialed as an | | | independent process antecedent to the imaging and intervention, as per | | | protocol at this institution. Patient was placed supine on the | | | x-ray table. The left arm prepped in the usual sterile fashion. | | | Left arm AV fistula was accessed using micropuncture needle and | | | exchanged for 4-Finnish micropuncture sheath. Initial fistula | | | pressure was obtained and fistulogram obtained from the left cubital | | | fossa to the right atrium. 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 | | | 4-Finnish micropuncture sheath was exchanged for 6-Finnish short | | | sheath over a 0.035, angled Glidewire. Using combination of the | | | 4-Finnish angled glide catheter and 0.035 angled Glidewire multiple | | | attempts to traverse the occluded distal left basilic vein was | | | unsuccessful. Subsequently, 4-Finnish angled glide catheter was | | | exchanged for 7 mm x 4 cm balloon catheter and angioplasty of the | | | multiple, significant stenosis in proximal portion the basilic vein | | | performed. Final fistula pressure and arterial pressures were | | | obtained. All catheters and wires then removed and hemostasis | | | obtained with manual pressure. No immediate procedural | | | complications. Patient tolerated the procedure well. FINDINGS | | | 1. Initial fistula pressure 114/59 mm Hg, arterial pressure 159/76 | | | mm Hg, final fistula pressure 117/61 mm Hg. 2. Left brachia | | | cephalic fissure gram revealed multiple focal stenosis in proximal | | | left basilic vein. There is occlusion of the distal left basilic | | | vein with reconstitution of the distal flow through cephalic vein | | | through multiple venous collaterals. Central veins are widely | | | patent. 3. Successful angioplasty of the multifocal stenosis in | | | proximal left basilic vein using 7-mm balloon. 4. Attempt to | | | traverse the occlusion in distal left basilic vein was unsuccessful. | | | IMPRESSION: 1. Successful left brachiobasilic fistulogram and | | | angioplasty of the significant, multiple tandem stenosis in proximal | | | left basilic vein without incidence. 2. Failed attempt to | | | recanalize occluded distal left basilic vein. Patient would benefit | | | from distal left basilic occlusion though cephalic venous bypass | | | versus new AV fistula in right arm. | | + + + + ---------+ | Procedure Note | + ---------+ | Khalif Palm Conversion - 02/13/2019 4:30 PM PDT [facility] | | FISTULAGRAM01/08/2013 1:57 PM HISTORY:47 years. Male. With chronic kidney disease stage | | V presents with prolonged bleeding after dialysis access. EXAMINATION Left | | brachiobasilic fistulogram and angioplasty of the multiple tandem stenosis in proximal | | left basilic vein using 7-mm by 4 cm balloon catheter. MEDICATIONS: Isovue-200 30 cc, | | Heparin 3300 units intravenous, Versed 0 mg intravenous, fentanyl 50-mcg intravenous. | | Intra-procedure sedation time 32 minutes. The radiation dose 19 mGray, Fluoroscopy | | time 5 minutes. Appropriate physiologic monitoring, maintenance of adequate conscious | | sedation and independent assisted supervision performed throughout the procedure. | | PROCEDURE: Informed written consent obtained from the patient after explaining the | | procedure, risks and alternatives. Patient understood the discussion and expressed a | | wish to proceed.The appropriate side and site was labeled and initialed as an | | independent process antecedent to the imaging and intervention, as per protocol at this | | institution. Patient was placed supine on the x-ray table. The left arm prepped in the | | usual sterile fashion. Left arm AV fistula was accessed using micropuncture needle and | | exchanged for 4-Finnish micropuncture sheath. Initial fistula pressure was obtained and | | fistulogram obtained from the left cubital fossa to the right atrium. Given the | | multiple tandem stenosis in proximal left basilic vein and occlusion of at the level of | | left axilla, I decided to perform angioplasty of the venous lesions. 4-Finnish | | micropuncture sheath was exchanged for 6-Finnish short sheath over a 0.035, angled | | Glidewire. Using combination of the 4-Finnish angled glide catheter and 0.035 angled | | Glidewire multiple attempts to traverse the occluded distal left basilic vein was | | unsuccessful. Subsequently, 4-Finnish angled glide catheter was exchanged for 7 mm x 4 | | cm balloon catheter and angioplasty of the multiple, significant stenosis in proximal | | portion the basilic vein performed. Final fistula pressure and arterial pressures were | | obtained. All catheters and wires then removed and hemostasis obtained with manual | | pressure. No immediate procedural complications. Patient tolerated the procedure well. | | FINDINGS1. Initial fistula pressure 114/59 mm Hg, arterial pressure 159/76 mm Hg, | | final fistula pressure 117/61 mm Hg.2. Left brachia cephalic fissure gram revealed | | multiple focal stenosis in proximal left basilic vein. There is occlusion of the distal | | left basilic vein with reconstitution of the distal flow through cephalic vein through | | multiple venous collaterals. Central veins are widely patent.3. Successful angioplasty | | of the multifocal stenosis in proximal left basilic vein using 7-mm balloon.4. Attempt | | to traverse the occlusion in distal left basilic vein was unsuccessful. IMPRESSION:1. | | Successful left brachiobasilic fistulogram and angioplasty of the significant, multiple | | tandem stenosis in proximal left basilic vein without incidence.2. Failed attempt to | | recanalize occluded distal left basilic vein. Patient would benefit from distal left | | basilic occlusion though cephalic venous bypass versus new AV fistula in right arm. | | | |IMPRESSION: | |1. 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 | |2. Failed attempt to recanalize occluded distal left basilic vein. Patient would benefit from distal left basilic occlusion though cephalic venous bypass versus new AV fistula in ri ght arm. | | | | | + ---------+ documented in this encounter Visit Diagnoses + + | Diagnosis | + + | Mesenteric arterial bleeding Hemorrhage, unspecified | + + documented in this encounter
--- OUTSIDE RECORDS SUMMARY | ~2019-12-30 | XMS | Encounter Summary ---
Demographics + + + | Address | [address] | | | [place] [address] | + + + | Home Phone | | + + + | Preferred Language | Unknown | + + + | Marital Status | Single | + + + | Methodist Affiliation | Unknown | + + + | Race | or | + + + | Ethnic Group | Not or | + + + Author + + + | Author | [facility] | + + + | Organization | [facility] | + + + | Address [...] Team Providers + +------+ + | Care Cover Assembler Name | Role | Phone | + +------+ + PCP | Unavailable | + +------+ + Reason for Visit + + + | Reason | Comments | + + + | Swelling | | + + + Encounter Details +--------+ + + + + | Date | Type | Department | Care Team | Description | +--------+ + + + + | 02/21/ | Emergency | [facility] Emergency | | | | 2016 | | Department [address] | | | | | | [facility] | | | | | | [place], [place] | | | | | | [phone] | | | | | | [phone] | | | +--------+ + + + [...] 2 puffs into | | 0 | 03/07/20 | | | mcg/actuation | the lungs every 4 | | | 12 | | | inhalation HFA | (four) hours as | | | | | | aerosol inhaler | needed for Wheezing. | | | | | + + + +---------+ + + | allopurinoL 100 mg | Take 100 mg by mouth | | 0 | 03/07/20 | | | oral tablet | daily. Indications: | | | 12 | | | | Primary Gout | | | | | + + + +---------+ + + | aspirin EC 81 mg | Take 81 mg by mouth. | | 0 | 03/07/20 | | | oral tablet,delayed | | | | 12 | | | release (DR/EC) | | | | | | + + + +---------+ + + | ergocalciferol | Take 50,000 Units by | | 0 | 03/07/20 | | | 50,000 unit oral | mouth. | | | 12 | | | capsule | | | | | | + + + +---------+ + + | fluticasone | Inhale 1 puff into | | 0 | 10/29/19 | | | propion-salmeteroL | the lungs 2 (two) | | | 14 | | | 250-50 mcg/dose | times daily. | | | | | | inhalation blister | | | | | | | with device | | | | | | + + + +---------+ + + documented as of this encounter Plan of Treatment Not on filedocumented as of this encounter Visit Diagnoses Not on filedocumented in this encounter"
--- OUTSIDE RECORDS SUMMARY | ~2019-12-30 | XMS | Encounter Summary ---
Demographics + + + | Address | [address] | | | [place] [address] | + + + | Home Phone | | + + + | Preferred Language | Unknown | + + + | Marital Status | Unknown | + + + | Temple Affiliation | 1076 | + + + | Race | Unknown | + + + | Ethnic Group | Unknown | + + + Author + + + | Author | [facility] | | | and [place] | + + + | Organization | [facility] | | | and [place] | + + + | Address | Unknown | + + + | Phone | Unavailable | + + + Support + + +---------+ + | Name | Relationship | Address | Phone | + + +---------+ + | Shynane Tariq | ECON | Unknown | | + + +---------+ + | [place] | ECON | Unknown | | + + +---------+ + Care Team Providers + +------+ + | Care Shear Grinder Operator Helper Name | Role | Phone | + +------+ + PCP | Unavailable | + +------+ + Encounter Details +--------+ + + + + | Date | Type | Department | Care Team | Description | +--------+ + + + + | 07/22/ | Hospital | [facility] | Vaishnavi Edward MD | MRSA infection; | | 2018 - | Encounter | [facility] | [address] | Complication of AV | | | | CARE FLOOR [address] | [place] [address] | dialysis fistula, | | 07/25/ | | [address] | [phone] | initial encounter; | | 2017 | | [place], [place] | | End stage renal | | | | [address] | | failure on dialysis | | | | [phone] | | ([facility]); Infection of | | | | | | arteriovenous | | | | | | fistula, subsequent | | | | | | encounter | +--------+ + + + + Social [...] + + + | Blood Pressure | 137/60 | 07/25/2017 11:15 AM | | | | | PST | | + + + + + | Pulse | 80 | 07/25/2017 11:15 AM | | | | | PST | | + + + + + | Temperature | 37.1 C (98.7 F) | 07/25/2017 11:15 AM | | | | | PST | | + + + + + | Respiratory Rate | 18 | 07/25/2017 11:15 AM | | | | | PST | | + + + + + | Oxygen Saturation | - | - | | + + + + + | Inhaled Oxygen | - | - | | | Concentration | | | | + + + + + | Weight | 79.6 kg (175 lb 8 | 07/25/2017 11:15 AM | | | | oz) | PST | | + + + + + | Height | 170.2 cm (5' 7") | 07/25/2017 11:15 AM | | | | | PST | | + + + + + | Body Mass Index | 27.49 | 07/25/2017 11:15 AM | | | | | PST | | + + + + + documented in this encounter Discharge Summaries Albino Altamirano MD - 07/25/2017 9:18 AM PSTFormatting of this note might be different fr om the original. Discharge Summaries by Albino Altamirano MD at 07/25/17917 Author: Albino Altamirano MD Service: Hospitalist Author Type: Physician Filed: 07/25/17 1513 Date of Service: 07/25/17917 Status: Addendum Photolith Operator: Albino Altamirano MD (Physician) Related Notes: Original Note by Albino Altamirano MD (Physician) filed at 07/25/17 1507 [facility] Service: Hospitalist Discharge Summary Date of Admission: 07/22/2017 Date of Discharge: 07/25/2017 Discharge Provider: ALBINO ALTAMIRANO MD Treatment Team: Consulting Physician: Juana Kwok MD Admitting Provider: Vaishanvi Edward MD Discharge Diagnoses: Principal Problem: 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HCC) Active Problems: Metabolic acidosis Hypothyroidism Diabetes mellitus with ESRD (end-stage renal disease) HTN (hypertension) ESRD (end stage renal disease) on dialysis Hyponatremia Asthma BRIEF HISTORY OF PRESENTATION/HOSPITAL COURSE: Enrique Potter is a 52 y.o. male with DM2, HTN, hypothyroid, asthma and ESRD on HD who pr esented with possible AVF site infection. He remained afebrile and denied and pain on the s ite however during cannulation of his AVF, the nurse noted pus coming out. Apparently wound culture came back heavy growth MRSA positive. He was started on vanco dosed per dialysis. US of the area was negative for fluid collection. Dr. Meyer was consulted and suggested to audelia cano antibiotic. No surgical intervention needed. He had metabolic acidosis which impro roselyn with HD. He received a total of 3 doses of vanco during this stay. He was advised to audelia burgos with outpatient HD and vanco dosing. Dr. Kwok already arranged the vanco orders. I had to increase his coreg to 6.25 BID for better BP control. He remained stable and improve d. The rest of his hospital stay was unremarkable. Prescriptions Prior to Admission Medication Sig Dispense Refill Last Dose acetaminophen [...] Primary G out 02/14/2017 at Unknown time amLODIPine (NORVASC) 10 MG tablet Take 10 mg by mouth daily. 02/14/2017 at Unknown jb e b complex-vitamin c-folic acid (NEPHRO-THU) 0.8 MG [...] MG disintegrating tablet 02/15/2017 at Unknown time sevelamer (RENVELA) 800 MG tablet take 3 tablets by mouth three times a day WITH MEALS AND 1 TABLET WITH SNACKS 300 tablet 5 02/15/2017 at Unknown time sodium bicarbonate 650 MG tablet Take 1,300 mg by mouth 2 (two) times daily. 017 at Unknown time DISCHARGE EXAM Vital Signs: Vitals: 07/24/17 2219 07/24/17 2257 07/25/17 0536 07/25/17 0750 BP: 158/87 150/68 137/73 BP Location: Left forearm Left forearm Left forearm Pulse: 86 81 80 Resp: 18 18 19 Temp: 98.3 F (36.8 C) 97.7 F (36.5 C) 97.8 F (36.6 C) TempSrc: Oral Oral Oral SpO2: 99% 100% 99% Weight: 79.6 kg (175 lb 8 oz) Height: Physical Exam General appearance: alert, appears stated age and cooperative. Fatigue looking but no dist ress. Interactive. Head: Normocephalic, without obvious abnormality, atraumatic Neck: no adenopathy, no carotid bruit, no JVD, supple, symmetrical, trachea midline and thy roid not enlarged, symmetric, no tenderness/mass/nodules Lungs: clear to auscultation bilaterally Heart: regular rate and rhythm, S1, S2 normal, no murmur, click, rub or gallop Abdomen: soft, non-tender; bowel sounds normal; no masses, no organomegaly Musculoskeletal: There is no redness, warmth, or swelling of the joints. Limited range of motion noted. Motor strength is 5 out of 5 all extremities bilaterally. Tone is normal. Extremities: extremities normal, atraumatic, no cyanosis or edema Pulses: 2+ and symmetric Skin: Skin color, texture, turgor normal. Firm lump smaller in size with small dried up cru sting on the right antecubital which is non tender. Palpable thrill present. Lymph nodes: Cervical, supraclavicular, and axillary nodes normal. DATA, personally reviewed Recent Labs Lab 07/25/17 0545 07/24/17 0430 07/23/17 0501 WBC 5.65 6.45 7.21 HGB 13.1* 12.7* 12.8* HCT 39.1 37.0* 37.9* PLT 151 184 198 NEUTOPHILPCT 55.56 66.67 73.75 MONOPCT 12.22 10.22 9.13 Recent Labs Lab 07/25/17 0545 07/24/17 0430 07/23/17 0501 07/22/17 1430 NA 136 136 130* 129* K 3.9 3.8 3.8 3.9 CL 98* 98* 99 97* CO2 29 29 9* 9* BUN 25 41* 96* 90* CREATININE 5.5* 7.4* 12.7* 12* PROT -- -- -- 7.5 BILITOT -- -- -- 0.6 ALT -- -- -- 56 AST -- -- -- 48* Phosphorus: Lab Results Component Value Date PHOS 3.7 07/25/2017 Recent Labs Lab 07/24/17 0430 07/23/17 0501 MG 2.4 3.1* Radiology, personally reviewed Us Upper Extremity Right Soft Tissue Result Date: 07/22/2017 1. Mild edema surrounding the ectatic fistula/graft -discharge home. -follow medications as outlined below. -follow up with providers as indicated. Disposition: Home Condition: Stable Code Status: Full Code Discharge Instructions Call MD for: Extreme Fatigue Call MD for: Severe Uncontrolled Pain Call MD for: Redness, Tenderness, or Signs of Infection (Pain, Swelling, Redness, Odor or Green/Yellow Discharge Around Incision Site) Follow up: Juana Kwok MD [facility] Carlos Eduardo Benjamin [address] [place] [id number] Schedule an appointment as soon as possible for a visit in 1 week post hospital [place] [address] [facility] [id number] Medication List CHANGE how you take these medications albuterol 108 (90 Base) MCG/ACT inhaler QTY: 1 Inhaler Refills: 1 Commonly known as: PROVENTIL HFA Inhale 2 puffs into the lungs every 4 (four) hours as needed for Wheezing. What changed: additional instructions carvedilol 3.125 MG tablet QTY: 60 tablet Refills: 0 Commonly known as: COREG Take 2 tablets by mouth 2 (two) times daily with meals. What changed: how much to take CONTINUE taking these medications acetaminophen 325 MG tablet Refills: 0 Commonly known as: TYLENOL allopurinol 100 MG tablet Refills: 0 Commonly known as: ZYLOPRIM amLODIPine 10 MG tablet Refills: 0 Commonly known as: NORVASC b complex-vitamin c-folic acid 0.8 MG Tabs tablet QTY: 30 tablet Refills: 11 For diagnoses: ESRD (end stage renal disease) on dialysis (HCC) Take 1 tablet by mouth daily. betamethasone valerate 0.1 % cream QTY: 30 g Refills: 0 Commonly known as: VALISONE Apply topically 2 (two) times daily for 7 days. budesonide-formoterol 160-4.5 MCG/ACT inhaler QTY: 2 each Refills: 0 Commonly known as: SYMBICORT Inhale 2 puffs into the lungs 2 (two) times daily. Cholecalciferol 2000 units Tabs Refills: 0 fluticasone-salmeterol [...] tablet Refills: 0 Commonly known as: ZOFRAN-ODT Notes to patient: Resume home schedule sevelamer 800 MG tablet QTY: 300 tablet Refills: 5 For diagnoses: ESRD (end stage renal disease) on dialysis (HCC) Commonly known as: RENVELA take 3 tablets [...] Medications These medications were sent to [facility] [place] [facility] [address] [facility] [place] [address] carvedilol 3.125 MG tablet Discharge took 35 minutes, to include final examination, discussion of admission, and prepa ration of prescriptions, instructions for on-going care, follow-up and documentation of disc harge summary. Dictation and telephone assembler or software, Octmami, used which may contain error for similar s ounding words even after review. Personal communication requested for any clarification. ALBINO ALTAMIRANO MD 07/25/2017 9:18 AM documented in this encounter Medications at [...] | | 14 | | | ol (ADVAIRCOOPERELA | times daily. | | | | [...] Progress Notes Conversion Transaction, Provider Unknown - 07/25/2017 12:10 PM PSTFormatting of this note m ight be different from the original. Pharmacy Note by Chela Boyle RPH at 07/25/171209 Author: Chela Boyle RPH Service: Pharmacy Author Type: Pharmacist Filed: 07/25/171209 Date of Service: 07/25/171209 Status: Signed Photolith Operator: Chela Boyle RPH (Pharmacist) Vancomycin Monitoring Clinician Dosing: Pharmacy Dosing Serum creatinine: 5.5 mg/dL High 07/25/17 0545 Estimated creatinine clearance: 15.5 mL/min Plan per protocol: Continue with current regimen of: Vancomycin 1000 mg IVPB to be given during last hour or immediately following each HD session. No dialysis today. Order trough levels:No trough required for vancomycin HD dosing protocol 07/25/2017 12:09 PM Pharmacist: Chela Boyle onver quique Transaction, Provider Unknown - 07/25/2017 10:45 AM PST Nurse Progress Note by Heather Zavaleta RN at 07/25/17 1045 Author: Heather Zavaleta RN Service: (none) Author Type: Registered Nurse Filed: 07/25/17 1048 Date of Service: 07/25/17 1045 Status: Signed Photolith Operator: Heather Zavaleta RN (Registered Nurse) Went over discharge instructions with pt and , pt said he understood what appointments to follow up with and that no changes were made to his medications so he didn't need to fill any prescriptions. IV was removed. Pt is ready for discharge, just waiting transportation t o show up.Heather Zavaleta RN onzee lei Transaction, Provider Unknown - 07/25/2017 9:22 AM PST Case Management by Devaughn Mendoza RN at 07/25/17921 Author: Devaughn Mendoza RN Service: (none) Author Type: Registered Nurse Filed: 07/25/17 1147 Date of Service: 07/25/17921 Status: Addendum Photolith Operator: Devaughn Mendoza RN (Registered Nurse) Related Notes: Original Note by Devaughn Mendoza RN (Registered Nurse) filed at 07/25/17 09 57 9:22 AM Called and left a message for Klaudia, community health nurse at [facility]. Letting her kno w of today's discharge. I will set up transportation with [employer]. 9:55 AM Spoke with Klaudia at [facility]. Updated her on discharge plan. No chages to medication ac cording to AVS. I called [place] [employer]. They will schedule a ride and herminia l me back. 11:46 AM Ride will be here at 3:00 PM koum, Juana Smallwood MD - 07/25/2017 8:56 AM PSTFormatting of this note might be different from th e original. Progress Notes by Juana Kwok MD at 07/25/1756 Author: Juana Kwok MD Service: Nephrology Author Type: Physician Filed: 07/25/17 1104 Date of Service: 07/25/1756 Status: Signed Photolith Operator: Juana Kwok MD (Physician) [facility] Service: Nephrology Progress Note Hospital Problem List: Principal Problem: 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HCC) Active Problems: Metabolic acidosis Hypothyroidism Diabetes mellitus with ESRD (end-stage renal disease) HTN (hypertension) ESRD (end stage renal disease) on dialysis Hyponatremia The patient says that he feels 'ok' today. He denies any cp, sob, abd pain, n/v. The following portions of the patient's history were reviewed and updated as appropriate: l aboratory data, radiologic studies, allergies, current medications, and problem list. allopurinol 100 mg Oral Daily amLODIPine 10 mg Oral Daily budesonide-formoterol 2 puff Inhalation 2 times daily carvedilol 6.25 mg Oral BID WC cholecalciferol 1,000 Units Oral Daily famotidine 20 mg Oral Daily heparin (porcine) 5000 unit/0.5mL 5,000 Units Subcutaneous 2 times per day insulin lispro (human) 0-10 Units Subcutaneous TID AC insulin lispro (human) 0-5 Units Subcutaneous Nightly levothyroxine 75 mcg Oral QAM AC montelukast 10 mg Oral Nightly sevelamer 2,400 mg Oral TID WC sodium bicarbonate 1,300 mg Oral TID sodium chloride 10 mL Intravenous Q8H vancomycin 1,000 mg Intravenous See Admin Instructions vancomycin 1,000 mg Intravenous Once dextrose P.E. BP 137/73 (BP Location: Left forearm) | Pulse 80 | Temp 97.8 F (36.6 C) (Oral) | Res p 19 | Ht 1.702 m (5' 7") | Wt 79.6 kg (175 lb 8 oz) | SpO2 99% | BMI 27.49 kg/m General appearance: Pleasant, not in acute distress. Lungs: Good A/E to auscultation bilaterally. There are no wheezes. Heart: Regular rate and rhythm without any rub, gallop. No murmur. Abdominal exam: Soft and nontender with normal bowel sounds. Extremities: Warm to touch with trace leg edema. There is no cyanosis. Neurological: Awake, alert, and oriented to time, place, and person. Normal gross motor po wer. There is no asterixis. Access: right arm AVF with good thrill. Just distal to it: the abscess area is noted: heale d up and is crusted over; no fluctuance noted. nontender. Lab Results Component Value Date BUN 25 07/25/2017 CREATININE 5.5 (H) 07/25/2017 EGFR 12 (L) 07/25/2017 NA 136 07/25/2017 K 3.9 07/25/2017 CL 98 (L) 07/25/2017 CO2 29 07/25/2017 CA 6.9 (L) 07/25/2017 PHOS 3.7 07/25/2017 MG 2.4 07/24/2017 ALB 3.2 (L) 07/25/2017 HGB 13.1 (L) 07/25/2017 I/O last 3 completed shifts: In: 2788 [P.O.:1488; Other:1300] Out: 3480 [Urine:180; Other:3300] No intake/output data recorded. Assessment: Mr. Potter is a 52 y.o. male patient with ESRD. Now with an abscess just distal to the right arm AV fistula; discharge from that abscess grew MRSA from swab sent 07/19/17. Presented with: MRSA abscess near AV fistula Admitted with: same. 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 JUANA KWOK MD 07/25/2017 onversion Transa ction, Provider Unknown - 07/24/2017 2:22 PM PST Case Management by Devaughn Mendoza RN at 07/24/17 1422 Author: Devaughn Mendoza RN Service: (none) Author Type: Registered Nurse Filed: 07/24/17 1424 Date of Service: 07/24/17 142 Status: Signed Photolith Operator: Devaughn Mendoza RN (Registered Nurse) 2:22 PM Attended rounds with Dr. Altamirano. Enrique will need another 24-48 hours in the hospital. Plan is to return home with his to [place]. Will need assistance in getting transportati on. Albino Diamond MD - 07/24/2017 11:30 AM PST Progress Notes by Albino Altamirano MD at 07/24/17 1130 Author: Albino Altamirano MD Service: Hospitalist Author Type: Physician Filed: 07/24/17 1518 Date of Service: 07/24/171129 Status: Signed Photolith Operator: Albino Altamirano MD (Physician) [facility] Service: Hospitalist Progress Note Hospital Day: LOS: 2 days SUBJECTIVE Patient Summary: 52 yo male with DM2, HTN, hypothyroid, asthma and ESRD on HD who pre sented with possible AVF site infection. He remained afebrile and denied and pain on the si te however during cannulation of his AVF, the nurse noted pus coming out. Apparently wound culture came back MRSA positive. He was started on vanco dosed per dialysis. Events Overnight: 07/23/2017 Seen and examined patient during dialysis. Family at bedside. He feels tired bu t completely denied any pain, fever or chills. There seems to be no problems with access du ring dialysis. 07/24/2017 Seen and examined patient. Overall he feels good. No fever or chills. Wants to go home. Scheduled Medications allopurinol 100 mg Oral Daily amLODIPine 10 mg Oral Daily budesonide-formoterol 2 puff Inhalation 2 times daily carvedilol 6.25 mg Oral BID WC cholecalciferol 1,000 Units Oral Daily famotidine 20 mg Oral Daily heparin (porcine) 5000 unit/0.5mL 5,000 Units Subcutaneous 2 times per day insulin lispro (human) 0-10 Units Subcutaneous TID AC insulin lispro (human) 0-5 Units Subcutaneous Nightly levothyroxine 75 mcg Oral QAM AC montelukast 10 mg Oral Nightly sevelamer 2,400 mg Oral TID WC sodium bicarbonate 1,300 mg Oral TID sodium chloride 10 mL Intravenous Q8H vancomycin 1,000 mg Intravenous See Admin Instructions Continuous Infusions dextrose PRN Medications acetaminophen OR acetaminophen, albuterol, dextrose, dextrose, dextrose, glucagon, gluc agon, hydrALAZINE, lidocaine, ondansetron OR ondansetron, polyethylene glycol, zolpidem OBJECTIVE Vital Signs: Vitals: 07/23/17 1930 07/23/17 2259 07/24/17 0423 07/24/17 0750 BP: 142/66 145/61 153/66 BP Location: Left forearm Left forearm Left forearm Pulse: 85 91 66 Resp: Temp: 98.4 F (36.9 C) 98.2 F (36.8 C) 98.2 F (36.8 C) TempSrc: Oral Oral Axillary SpO2: 99% 98% 99% Weight: 80.5 kg (177 lb 6.4 oz) Height: Physical Exam General appearance: alert, appears stated age and cooperative. Fatigue looking but no dist ress. Interactive. Head: Normocephalic, without obvious abnormality, atraumatic Neck: no adenopathy, no carotid bruit, no JVD, supple, symmetrical, trachea midline and thy roid not enlarged, symmetric, no tenderness/mass/nodules Lungs: clear to auscultation bilaterally Heart: regular rate and rhythm, S1, S2 normal, no murmur, click, rub or gallop Abdomen: soft, non-tender; bowel sounds normal; no masses, no organomegaly Musculoskeletal: There is no redness, warmth, or swelling of the joints. Limited range of motion noted. Motor strength is 5 out of 5 all extremities bilaterally. Tone is normal. Extremities: extremities normal, atraumatic, no cyanosis or edema Pulses: 2+ and symmetric Skin: Skin color, texture, turgor normal. Firm lump smaller in size with small dried up cru sting on the right antecubital which is non tender. Palpable thrill present. Lymph nodes: Cervical, supraclavicular, and axillary nodes normal. DATA, personally reviewed Recent Labs Lab 07/24/17 0430 07/23/17 0501 07/22/17 1430 WBC 6.45 7.21 9.45 HGB 12.7* 12.8* 12.4* HCT 37.0* 37.9* 37.7* PLT 184 198 192 NEUTOPHILPCT 66.67 73.75 82.56 MONOPCT 10.22 9.13 7.15 Recent Labs Lab 07/24/17 0430 07/23/17 0501 07/22/17 1430 NA 136 130* 129* K 3.8 3.8 3.9 CL 98* 99 97* CO2 29 9* 9* BUN 41* 96* 90* CREATININE 7.4* 12.7* 12* PROT -- -- 7.5 BILITOT -- -- 0.6 ALT -- -- 56 AST -- -- 48* Phosphorus: Lab Results Component Value Date PHOS 5.4 (H) 07/24/2017 Recent Labs Lab 07/24/17 0430 07/23/17 0501 MG 2.4 3.1* Radiology, personally reviewed Us Upper Extremity Right Soft Tissue Result Date: 07/22/2017 1. Mild edema surrounding the ectatic fistula/graft LEM LIST Principal Problem: 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HCC) Active Problems: Metabolic acidosis Hypothyroidism Diabetes mellitus with ESRD (end-stage renal disease) HTN (hypertension) ESRD (end stage renal disease) on dialysis Hyponatremia Hyperphosphatemia ASSESSMENT & PLAN 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HCC) -US is negative for fluid collection. -no signs of surrounding cellulitis. -consulted Dr. Meyer, no further imaging or procedures suggested. Continue vancomycin. -culture report from outside showed heavy MRSA growth. Will continue vanco for now. Patimariela nt has history of non compliance so we want to make sure he is adequately treated with IV ab x. Metabolic acidosis -improved levels after HD yesterday. Hypothyroidism -continue levothyroxine. Diabetes mellitus with ESRD (end-stage renal disease) -humalog SSI. -appreciate nephrology input and management of HD. HTN (hypertension) -continue amlodipine 10 daily. -continue coreg to 6.25 BID. -BP is better controlled today. -ordered hydralazine 10 q 6 PRN systolic >160. Hyponatremia -improved levels. -monitor for now. -this is chronic based on chart review. Hyperphosphatemia -phos binder in place. DVT prophylaxis: in place. GI prophylaxis: in place. Disposition: Inpatient. Code Status: Full Code Dictation and telephone assembler or software, Octmami, used which may contain error for similar s ounding words even after review. Personal communication requested for any clarification. ALBINO ALTAMIRANO MD 07/24/2017 11:30 AM onversion Transact ion, Provider Unknown - 07/24/2017 8:55 AM PSTFormatting of this note might be different fr om the original. Progress Notes by Reba Roldan RPH at 07/24/17854 Author: Reba Roldan RPH Service: Pharmacy Author Type: Pharmacist Filed: 07/24/17854 Date of Service: 07/24/17854 Status: Signed Photolith Operator: Reba Roldan RPH (Pharmacist) Vancomycin Monitoring Day 3 Clinician Dosing: Pharmacy Dosing SCr: 7.45mg/dL HD patient. Last dialysis session on 07/23/2017. Plan per protocol: Continue with current regimen of: Vancomycin 1000 mg IVPB to be given during last hour or immediately following each HD session. Spoke with RN who is unsure whether patient will rece home HD today, but will order vanco dose if HD will be performed. Order trough levels:No trough required for vancomycin HD dosing protocol 07/24/2017 8:51 AM Pharmacist: Reba Roldan onver quique Transaction, Provider Unknown - 07/23/2017 8:24 PM PST Progress Notes by Ambika Hanson RPH at 07/23/172023 Author: Ambika Hanson RPH Service: Pharmacy Author Type: Pharmacist Filed: 07/23/172023 Date of Service: 07/23/172023 Status: Signed Photolith Operator: Ambika Hanson RPH (Pharmacist) HD patient so famotidine 20mg po changed to once daily onver quique Transaction, Provider Unknown - 07/23/2017 6:14 PM PST Progress Notes by Camilo Samson RN at 07/23/171813 Author: Camilo Samson RN Service: (none) Author Type: Registered Nurse Filed: 07/23/171813 Date of Service: 07/23/171813 Status: Signed Photolith Operator: Camilo Samson RN (Registered Nurse) Pt received HD with 1L taken off. No acutre changes this shift. Camilo Samson RN Albino Diamond MD - 07/23/2017 2:36 PM PST Progress Notes by Albino Altamirano MD at 07/23/17 6308 Author: Albino Altamirano MD Service: Hospitalist Author Type: Physician Filed: 07/23/172016 Date of Service: 07/23/17 1431 Status: Signed Photolith Operator: Albino Altamirano MD (Physician) [facility] Service: Hospitalist Progress Note Hospital Day: LOS: 1 day SUBJECTIVE Patient Summary: 52 yo male with DM2, HTN, hypothyroid, asthma and ESRD on HD who pre sented with possible AVF site infection. He remained afebrile and denied and pain on the si te however during cannulation of his AVF, the nurse noted pus coming out. Apparently wound culture came back MRSA positive. He was started on vanco dosed per dialysis. Events Overnight: Seen and examined patient during dialysis. Family at bedside. He feels tired but completely denied any pain, fever or chills. There seems to be no problems with access during dialysis. Scheduled Medications allopurinol 100 mg Oral Daily amLODIPine 10 mg Oral Daily budesonide-formoterol 2 puff Inhalation 2 times daily carvedilol 3.125 mg Oral BID WC cholecalciferol 1,000 Units Oral Daily heparin (porcine) 5000 unit/0.5mL 5,000 Units Subcutaneous 2 times per day insulin lispro (human) 0-10 Units Subcutaneous TID AC insulin lispro (human) 0-5 Units Subcutaneous Nightly levothyroxine 75 mcg Oral QAM AC montelukast 10 mg Oral Nightly sevelamer 2,400 mg Oral TID WC sodium bicarbonate 1,300 mg Oral TID sodium chloride 10 mL Intravenous Q8H vancomycin 1,000 mg Intravenous See Admin Instructions vancomycin 1,000 mg Intravenous Once Continuous Infusions dextrose PRN Medications acetaminophen OR acetaminophen, albuterol, dextrose, dextrose, dextrose, glucagon, gluc agon, lidocaine, ondansetron OR ondansetron, polyethylene glycol, zolpidem OBJECTIVE Vital Signs: Vitals: 07/23/17 1330 07/23/17 1345 07/23/17 1400 07/23/17 1415 BP: 163/71 167/67 169/70 151/65 BP Location: Pulse: 83 80 81 83 Resp: 16 18 16 Temp: TempSrc: SpO2: 100% 93% 94% 99% Weight: Height: Physical Exam General appearance: alert, appears stated age and cooperative. Fatigue looking but no dist ress. Interactive. Head: Normocephalic, without obvious abnormality, atraumatic Neck: no adenopathy, no carotid bruit, no JVD, supple, symmetrical, trachea midline and thy roid not enlarged, symmetric, no tenderness/mass/nodules Lungs: clear to auscultation bilaterally Heart: regular rate and rhythm, S1, S2 normal, no murmur, click, rub or gallop Abdomen: soft, non-tender; bowel sounds normal; no masses, no organomegaly Musculoskeletal: There is no redness, warmth, or swelling of the joints. Limited range of motion noted. Motor strength is 5 out of 5 all extremities bilaterally. Tone is normal. Extremities: extremities normal, atraumatic, no cyanosis or edema Pulses: 2+ and symmetric Skin: Skin color, texture, turgor normal. Small firm lump with small dried up crusting on t he right antecubital. Palpable thrill present. Lymph nodes: Cervical, supraclavicular, and axillary nodes normal. DATA, personally reviewed Recent Labs Lab 07/23/17 0501 07/22/17 1430 WBC 7.21 9.45 HGB 12.8* 12.4* HCT 37.9* 37.7* PLT 198 192 NEUTOPHILPCT 73.75 82.56 MONOPCT 9.13 7.15 Recent Labs Lab 07/23/17 0501 07/22/17 1430 NA 130* 129* K 3.8 3.9 CL 99 97* CO2 9* 9* BUN 96* 90* CREATININE 12.7* 12* PROT -- 7.5 BILITOT -- 0.6 ALT -- 56 AST -- 48* Phosphorus: Lab Results Component Value Date PHOS 9.3 (HH) 07/23/2017 Recent Labs Lab 07/23/17 0501 MG 3.1* Radiology, personally reviewed Us Upper Extremity Right Soft Tissue Result Date: 07/22/2017 1. Mild edema surrounding the ectatic fistula/graft LEM LIST Principal Problem: 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HCC) Active Problems: Metabolic acidosis Hypothyroidism Diabetes mellitus with ESRD (end-stage renal disease) HTN (hypertension) ESRD (end stage renal disease) on dialysis Hyponatremia Hyperphosphatemia ASSESSMENT & PLAN 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HCC) -US is negative for fluid collection. -no signs of surrounding cellulitis. -consulted Dr. Meyer, no further imaging or procedures suggested. Continue vancomycin. Metabolic acidosis -this will be addressed during HD. Hypothyroidism -continue levothyroxine. Diabetes mellitus with ESRD (end-stage renal disease) -humalog SSI. -appreciate nephrology input and management of HD. HTN (hypertension) -continue amlodipine 10 daily. -I will increase coreg to 6.25 BID. -ordered hydralazine 10 q 6 PRN systolic >160. Hyponatremia -monitor for now. -this is chronic based on chart review. Hyperphosphatemia -phos binder in place. DVT prophylaxis: in place. GI prophylaxis: in place. Disposition: Inpatient. Code Status: Full Code Dictation and telephone assembler or software, Oct[employer]ami, used which may contain error for similar s ounding words even after review. Personal communication requested for any clarification. ALBINO ALTAMIRANO MD 07/23/2017 2:36 PM onversion Transact ion, Provider Unknown - 07/23/2017 10:43 AM PSTFormatting of this note might be different fr om the original. Case Management by Devaughn Mendoza RN at 07/23/17 1043 Author: Devaughn Mendoza RN Service: (none) Author Type: Registered Nurse Filed: 07/23/17 1046 Date of Service: 07/23/17 1043 Status: Signed Photolith Operator: Devaughn Mendoza RN (Registered Nurse) 10:44 AM Received a call from Klaudia([phone]), she is with the [facility]. She just want ed to make herself available if there is any discharge needs that she could help with. onver quique Transaction, Provider Unknown - 07/23/2017 10:19 AM PST Case Management by Devaughn Mendoza RN at 07/23/17 1019 Author: Devaughn Mendoza RN Service: (none) Author Type: Registered Nurse Filed: 07/23/17 1022 Date of Service: 07/23/17 1019 Status: Signed Photolith Operator: Devaughn Mendoza RN (Registered Nurse) 07/23/17 1017 Discharge Planning Evaluation Admitting Diagnosis AV fistula infection Readmission No Living Arrangements Spouse/significant other Support Systems Spouse/significant other Type of Residence Private residence Independent with ADL's Yes Independent with Mobility Yes Home Care Services No Caregiver after Discharge No Mental Status Oriented Prior functional status Independent Power of Operating Table Assembler No Anticipated Discharge Plan Post Acute Care Needs None at this time Plan communicated to patient/family Yes Resources Financial concerns No Transportation issues Yes (No car, uses transportation service called "brokerage") Patient/Family concerns No Prescription Plan Yes Name of Pharmacy [facility] if after hours Previous home health equipment No Vascular access device No Ostomy/Drains/Appliances No Met with Christoph & his Shyanne and discussed discharge planning, Pt is a 52 y.o., male from [place], [place]. He lives with his and he get dialysis three times a week() in [facility]. He does not use any other DME equipment. Patient's PCP is:Andry Deng MD Patient's insurance:Medicare/Medicaid/[employer] Coverage concerns: no Medication coverage/concerns:no Rx Bedside Delivery: not needed Community resources utilized / needed: Uses a transportation service Assistance in transportation: Will need transportation assistance Identification of any specific education / training: no Barriers to Discharge / Alternative housing needed:no Anticipated DCP: Home, may need out patient IVAB. Devaughn Mendoza onver quique Castillo, Provider Unknown - 07/23/2017 8:56 AM PST Progress Notes by Shira Werner RN at 07/23/17 0856 Author: Shira Werner RN Service: Infectious Disease Author Type: Registered Nurse Filed: 07/23/17 0857 Date of Service: 07/23/1756 Status: Signed Photolith Operator: Shira Werner RN (Registered Nurse) Infection Prevention Note: Pt with a nasal PCR positive for MRSA. Contact Isolation precautions required for this hosp italization . Thank you! Shira Werner RN, BSN, [facility] Infection Control Coord [phone] onver quique Transaction, Provider Unknown - 07/22/2017 9:29 PM PST Pharmacy Note by Chela Boyle RPH at 07/22/172128 Author: Chela Boyle RPH Service: Pharmacy Author Type: Pharmacist Filed: 07/22/172128 Date of Service: 07/22/172128 Status: Signed Photolith Operator: Chela Boyle RPH (Pharmacist) Initiation of Vancomycin Pharmacy Dosing Enrique Potter 52 y.o. male 1.702 m (5' 7") 81.2 kg (179 lb 1.6 oz) Body mass index is 28.05 kg/m. CREATININE Date Value Ref Range Status 07/22/2017 12 (H) 0.70 - 1.30 mg/dL Final Estimated CrCl : Serum creatinine: 12 mg/dL High 07/22/17 1430 Estimated creatinine clearance: 7.2 mL/min Indications: AVF Infection Dose per Protocol: Loading Dose: Vancomycin 1500 mg IV X1, then Vancomycin 1000mg IV to be administered dose d uring last hour or immediately following each hemodialysis session. Goal Trough for Vancomycin: 15-20 mcg/mL Pharmacist: Chela Boyle 07/22/2017 9:27 PM onver quique Transaction, Provider Unknown - 07/22/2017 9:07 PM PST Pharmacy Note by Chela Boyle RPH at 07/22/172106 Author: Chela Boyle RPH Service: Pharmacy Author Type: Pharmacist Filed: 07/22/172106 Date of Service: 07/22/172106 Status: Signed Photolith Operator: Chela Boyle [facility] (Pharmacist) Renal Dosing Monitoring: Enrique Potter 52 y.o. male Pharmacy dosing for renal function per Dr. Vaishnavi Edward Serum creatinine: 12 mg/dL High 07/22/17 1430 Estimated creatinine clearance: 7.2 mL/min No changes needed at this time. Pharmacy will continue monitoring patient for appropriate dosing per renal function. 07/22/2017 9:06 PM Pharmacist: Chela Boyle docume nted in this encounter H&P Notes Vaishnavi Edward MD - 07/22/2017 8:33 PM PST H&P by Vaishnavi Edward MD at 07/22/172032 Author: Vaishnavi Edward MD Service: Hospitalist Author Type: Physician Filed: 07/22/172057 Date of Service: 07/22/172032 Status: Addendum Photolith Operator: Vaishnavi Edward MD (Physician) Related Notes: Original Note by Vaishnavi Edward MD (Physician) filed at 07/22/172056 [facility] Service: Hospitalist Admission History & Physical Pt: Enrique Potetr AGE/SEX: 52 y.o. male Date of Admission: 07/22/2017 Reason for Admission: AVF infection History Obtained From: patient CHIEF COMPLAINT: Pus coming the AVF HISTORY OF PRESENT ILLNESS The patient is a 52 y.o. male with ESRD on HD every MWF using a right arm AVF, type2 Dm, HT N, hypothyroidism, asthma presented to the ED for possible AVF infection. Patient reports that about 6 days prior to his presentation he started to have pain from th e area of his AVF. He did not notice any redness or warmth or open drainage. His AVF was can nulated w/out issue on Saturday. However on Saturday during cannulation of his AVF, the dialy sis bench repair technician noted a small amount of pus coming out. This was cultured and later isolated MRSA. He had been advised to go to the hospital then but patient was not able to do so. He w ent to his dialysis clinic today but was sent to the ED instead. Over the weekend he report s the pain has on his right arm has resovled. He had no fever, malaise, nausea, vomiting. At the Ed, his BP was elevated. Rest of his VS were acceptable. He was afebrile. His labs s howed normal wbc but with seg shift. CRP was elevated. His serum Na was low at 129. BUN/crea tinine were elevated and HCO low as expected. Serum K was wnl. Dr. Kwok was contacted who r ecommended patient be admitted for IV antibiotic. HD will be performed in the morning. Patient is negative for: murmur, JVD REVIEW OF SYSTEMS Review of Systems Constitutional: Negative for chills, fever and malaise/fatigue. HENT: Negative for congestion and sore throat. Eyes: Negative for blurred vision. Respiratory: Negative for cough, sputum production and shortness of breath. Cardiovascular: Negative for chest pain, palpitations, orthopnea and leg swelling. Gastrointestinal: Negative for abdominal pain, heartburn, nausea and vomiting. Musculoskeletal: Negative for joint pain and myalgias. Skin: Negative for rash. Neurological: Negative for dizziness, sensory change and headaches. Past Medical History Diagnosis Date Abdominal pain, right upper quadrant 04/13/2012 Amphetamine and other psychostimulant dependence, continuous 04/02/2012 Anemia Anemia due to blood loss 04/30/2012 Asthma pt not using inhaler any more, no symptoms AV fistula ([facility]) lt arm 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 Chronic obstructive asthma with exacerbation ([facility]) 10/27/2013 Chronic systolic heart failure ([facility]) 09/10/2016 Diabetes mellitus type I ([facility]) Dialysis patient ([facility]) DVT (deep venous thrombosis) ([facility]) x3 GI bleed 04/30/2012 from coumadin Gout Hyperkalemia 11/09/2013 Hyperlipidemia Hyperphosphatemia 05/24/2012 Hypertension Hyponatremia 09/08/2016 Knee pain, right 07/06/2012 MSSA (methicillin susceptible Staphylococcus aureus) infection 04/11/2012 Neuromuscular disorder ([facility]) neuropathy 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 Rash and nonspecific skin eruption 04/03/2012 SOB (shortness of breath) 10/27/2013 Thyroid disease Walker as ambulation aid Past Surgical History Procedure Laterality Date AV FISTULA PLACEMENT Right 02/09/2014 Procedure: AV FISTULA; Surgeon: Oskar Meyer MD; Location: [facility] MAIN OR; Service: Vascula r; Laterality: Right; AV FISTULA PLACEMENT Left 05/06/2012 Procedure: AV FISTULA; Surgeon: Oskar Meyer MD; Location: [facility] MAIN OR; Service: Vascula r; Laterality: Left; Left arm possible right AV FISTULA REPAIR Left 07/11/2012 Procedure: AV FISTULA - GRAFT REPAIR/REVISION; Surgeon: Oskar Meyer MD; Location: [facility] IN OR; Service: Vascular; Laterality: Left; Superficialization of brachiobasilic fistula and right IJ perm cath insertion CATHETER REMOVAL Right 07/07/2012 Procedure: DIALYSIS CATHETER - REMOVAL; Surgeon: Oskar Meyer MD; Location: [facility] BEDSIDE P ROCEDURE; Service: General; Laterality: Right; perm cath COLONOSCOPY WITH EGD N/A 05/01/2012 Procedure: COLONOSCOPY W/ EGD; Surgeon: John Singleton MD; Location: [facility] ENDOSCOPY; Ser vice: Gastroenterology; Laterality: N/A; DIALYSIS FISTULA CREATION Left 07/11/2012 Procedure: DIALYSIS CATHETER - INSERTION; Surgeon: Oskar Meyer MD; Location: [facility] OR ; Service: Vascular; Laterality: Left; removed dialysis catheter from left neck and place d new on in left chest, attempted in right neck but unable to place DIALYSIS FISTULA CREATION Left 07/07/2012 Procedure: DIALYSIS CATHETER - INSERTION; Surgeon: Oskar Meyer MD; Location: [facility] BEDSIDE PROCEDURE; Service: General; Laterality: Left; temporary dialysis catheter KNEE ARTHROSCOPY Right 07/07/2012 Procedure: KNEE - ARTHROSCOPY; Surgeon: Favio Raza MD; Location: [facility] OR; Se rvice: Orthopedics; Laterality: Right; After 153 SUPERFICIALIZATION OF AV FISTULA Right 03/30/2014 Procedure: AV FISTULA - SUPERFICIALIZATION; Surgeon: Oskar Meyer MD; Location: [facility] OR; Service: Vascular; Laterality: Right; UNLISTED PROCEDURE ARTHROSCOPY shoulder rt , ligaments Allergies Allergen Reactions Azithromycin Rash Unknown Lisinopril [...] TABS tablet Take 1 tablet by mouth yelena y. 01/24/17 Juan Timmons MD betamethasone valerate (VALISONE) 0.1 % cream Apply topically 2 (two) times daily for 7 da ys. 02/19/17 02/26/17 Khanh Rangel MD budesonide-formoterol (SYMBICORT) 160-4.5 MCG/ACT inhaler Inhale 2 [...] (two) times daily. 10/28/13 Karri Huff MD HYDROcodone-acetaminophen (NORCO) 5-325 MG per tablet 10/03/16 Historical Provider levothyroxine (SYNTHROID) 75 MCG tablet Take 75 mcg by mouth every morning before breakfast . Indications: Underactive Thyroid CLARENCE Earl montelukast (SINGULAIR) 10 MG tablet Take 1 tablet by mouth nightly. 10/28/13 10/28/14 Karri Huff MD ondansetron (ZOFRAN-ODT) 8 MG disintegrating tablet 10/03/16 Historical Provider sevelamer (RENVELA) 800 MG tablet take 3 tablets by mouth three times a day WITH MEALS AND 1 TABLET WITH SNACKS 01/24/17 Juan Timmons MD sodium bicarbonate 650 MG tablet Take 1,300 mg by mouth 2 (two) times daily. Historica l Provider Family History Problem Relation Age of Onset Heart disease Mother Heart disease Father Diabetes Father Cancer Father colon cancer Social History History Smoking Status Former Smoker Packs/day: 1.00 Years: 23.00 Quit date: 04/28/2011 Smokeless Tobacco Never Used Comment: quit 17 yrs ago History Alcohol Use No History Drug Use No Comment: Smokes THC Daily, quit methaamphetamine in mar 2012 after ARF PHYSICAL EXAM Vital Signs: BP 172/87 (BP Location: Left upper arm) | Pulse 82 | Temp 97.9 F (36.6 C) (Oral) | R cici 16 | Wt 81.9 kg (180 lb 8.9 oz) | SpO2 99% | BMI 28.28 kg/m Physical Exam Constitutional: He is oriented to person, place, and time and well-developed, well-nourishe d, and in no distress. HENT: Head: Normocephalic and atraumatic. Eyes: Conjunctivae are normal. Pupils are equal, round, and reactive to light. Neck: Normal range of motion. Neck supple. No JVD present. Cardiovascular: Normal rate and regular rhythm. No murmur heard. Pulmonary/Chest: Effort normal and breath sounds normal. No respiratory distress. He has no wheezes. He has no rales. Abdominal: Soft. Bowel sounds are normal. Musculoskeletal: Right upper arm AVF with eczematous rash and erythema but no differential warmth or ulcerat ion/drainage Lymphadenopathy: He has no cervical adenopathy. Neurological: He is alert and oriented to person, place, and time. No cranial nerve deficit . Skin: Skin is warm and dry. DATA CBC: Lab Results Component Value Date WBC 9.45 07/22/2017 RBC 4.22 07/22/2017 HGB 12.4 (L) 07/22/2017 HCT 37.7 (L) 07/22/2017 MCV 89.5 07/22/2017 MCH 29.3 07/22/2017 MCHC 32.8 07/22/2017 RDW 55.6 (H) 07/22/2017 PLT 192 07/22/2017 MPV 6.5 07/22/2017 DIFFTYPE AUTOMATED 07/22/2017 CMP: Lab Results Component Value Date NA 129 (L) 07/22/2017 K 3.9 07/22/2017 CL 97 (L) 07/22/2017 CO2 9 (LL) 07/22/2017 ANIONGAP 30 (H) 07/22/2017 GLUF 183 (H) 07/22/2017 BUN 90 (H) 07/22/2017 CREATININE 12 (H) 07/22/2017 BCR 8 07/22/2017 CA 7.1 (L) 07/22/2017 CA 6.1 (L) 04/02/2012 PROT 7.5 07/22/2017 ALB 3.6 07/22/2017 GLOB 3.9 07/22/2017 BILITOT 0.6 07/22/2017 ALP 140 (H) 07/22/2017 AST 48 (H) 07/22/2017 ALT 56 07/22/2017 EGFR 5 (L) 07/22/2017 PROBLEM LIST Principal Problem: 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HCC) Active Problems: Metabolic acidosis Hypothyroidism Diabetes mellitus with ESRD (end-stage renal disease) HTN (hypertension) ESRD (end stage renal disease) on dialysis Hyponatremia ASSESSMENT & PLAN Consider AVF infection For US right upper arm to check for periAVF fluid collection Blood cultures pending Vancomycin now 15mg/kg then post HD Pharmacy consult to monitor levels and adjust dose appropriately Hyponatremia Likely from hypovolemia UF during HD per nephrology's discretion Metabolic acidosis secondary to ESRD Correction with HD On HCO 1300mg BID ESRD For HD in am Dr. Kwok consulted Continue P binder Type 2DM Glucose monitoring with insulin sliding scale HTN Resume home meds UF during dialysis, per nephrology's discretion Bronchial asthma Stable On montelukast, symbicort, prn albuterol Stable Hypothyroidism Continue synthroid DVT prophylaxis The plan has explained in detail to the patient , all questions were answered.All data was reviewed. Disposition: Code Status: Prior Primary Care Physician: ANDRY Edward MD 07/22/2017 8:48 PM documented in this enc ounter Procedure Notes Juana Kwok MD - 07/24/2017 4:18 PM PST Procedures by Juana Kwok MD at 07/24/178 Author: Juana Kwok MD Service: Nephrology Author Type: Physician Filed: 07/25/17 0021 Date of Service: 07/24/171617 Status: Signed Photolith Operator: Juana Kwok MD (Physician) Procedure Orders: 1. Hemodialysis [[id number]] ordered by Juana Kwok MD at 07/24/172049 The patient is seen & examined during dialysis. he says that he feels 'better' today. he d enies any cp, sob, abd pain, n/v. The following portions of the patient's history were reviewed and updated as appropriate: l aboratory data, allergies, current medications, and problem list. P.E. BP 158/87 (BP Location: Left forearm) | Pulse 86 | Temp 98.3 F (36.8 C) (Oral) | Res p 18 | Ht 1.702 m (5' 7") | Wt 79.6 kg (175 lb 8 oz) | SpO2 99% | BMI 27.49 kg/m General appearance: Pleasant, not in acute distress. Lungs: Good A/E to auscultation bilaterally. There are no wheezes. Heart: Regular rate and rhythm without any rub, gallop. No murmur. Abdominal exam: Soft and nontender with normal bowel sounds. Extremities: Warm to touch with trace leg edema. There is no cyanosis. Neurological: Awake, alert, and oriented to time, place, and person. Normal gross motor po wer. There is no asterixis. Access: right arm AVF with good thrill. Just distal to it: the abscess head is noted: heale d up and is crusted over; no fluctuance noted. nontender. Lab Results Component Value Date BUN 41 (H) 07/24/2017 CREATININE 7.4 (H) 07/24/2017 EGFR 8 (L) 07/24/2017 NA 136 07/24/2017 K 3.8 07/24/2017 CL 98 (L) 07/24/2017 CO2 29 07/24/2017 CA 6.6 (L) 07/24/2017 PHOS 5.4 (H) 07/24/2017 MG 2.4 07/24/2017 ALB 3.1 (L) 07/24/2017 HGB 12.7 (L) 07/24/2017 Assessment: Mr. Potter is a 52 y.o. male patient with ESRD. Now with an abscess just distal to the right arm AV fistula; discharge from that abscess grew MRSA from swab sent 07/19/17. Presented with: MRSA abscess near AV fistula Admitted with: same. Complications identified during his dialysis treatment: none. Recommendations: UF as tolerated No IV Epo with HD today Advise fluid restriction of 1.2 L per 24 hrs Prot suppl stressed Next dialysis treatment is planned for Saturday as outpt. JUANA KWOK MD koum, Juana romo MD - 07/23/2017 1:56 PM PST Procedures by Juana Kwok MD at 07/23/17 1350 Author: Juana Kwok MD Service: Nephrology Author Type: Physician Filed: 07/28/17 0015 Date of Service: 07/23/17 1356 Status: Signed Photolith Operator: Juana Kwok MD (Physician) Procedure Orders: 1. Hemodialysis [[id number]] ordered by Juana Kwok MD at 07/23/17 7021 The patient is seen & examined during dialysis. he says that he feels 'ok' today. he denie s any cp, sob, abd pain, n/v. The following portions of the patient's history were reviewed and updated as appropriate: l aboratory data, allergies, current medications, and problem list. P.E. BP 142/66 (BP Location: Left forearm) | Pulse 85 | Temp 98.4 F (36.9 C) (Oral) | Res p 16 | Ht 1.702 m (5' 7") | Wt 80.5 kg (177 lb 6.4 oz) | SpO2 99% | BMI 27.78 kg/m General appearance: Pleasant, not in acute distress. Lungs: Good A/E to auscultation bilaterally. There are no wheezes. Heart: Regular rate and rhythm without any rub, gallop. no murmur. Abdominal exam: Soft and nontender with normal bowel sounds. Extremities: Warm to touch with trace leg edema. There is no cyanosis. Neurological: Awake, alert, and oriented to time, place, and person. Normal gross motor po wer. There is no asterixis. Access: right arm AVF with good thrill. Just distal to it: the abscess head is noted: heale d up and is crusted over; no fluctuance noted. nontender. Lab Results Component Value Date BUN 96 (H) 07/23/2017 CREATININE 12.7 (H) 07/23/2017 EGFR 4 (L) 07/23/2017 NA 130 (L) 07/23/2017 K 3.8 07/23/2017 CL 99 07/23/2017 CO2 9 (LL) 07/23/2017 CA 7.1 (L) 07/23/2017 PHOS 9.3 (HH) 07/23/2017 MG 3.1 (H) 07/23/2017 ALB 3.5 (L) 07/23/2017 HGB 12.8 (L) 07/23/2017 Assessment: Mr. Potter is a 52 y.o. male patient with ESRD. Now with an abscess just distal to the right arm AV fistula; discharge from that abscess grew MRSA from swab sent 07/19/17. Presented with: MRSA abscess near AV fistula Admitted with: same. Complications identified during his dialysis treatment: none. Recommendations: UF as tolerated No IV Epo with HD today Advise fluid restriction of 1.2 L per 24 hrs Prot suppl stressed Next dialysis treatment per the submitted pre-vann orders. JUANA KWOK MD documented in thi s encounter Consult Notes Oskar Meyer MD - 07/23/2017 2:51 PM PST Consults by Oskar Meyer MD at 07/23/17 3580 Author: Oskar Meyer MD Service: Vascular Surgery Author Type: Physician Filed: 07/23/17 7126 Date of Service: 07/23/17 786 Status: Signed Photolith Operator: Oskar Meyer MD (Physician) Consult Orders: 1. Inpatient consult to Vascular Surgery [[id number]] ordered by Albino Altamirano MD at 1552 Subjective: Patient is a 52 y.o. male with PMH significant for DM, substance abuse, CHF, and ESRD curre ntly dialyzing via right upper extremity brachiobasilic fistula created by me many years ago . He recently had MRSA positive fluid drained from right arm around fistula. Due to concer n for infection, vascular surgery was consulted for evaluation. Denies fever or chills. Patient Active Problem List Diagnosis Date Noted 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HCC) 07/22/2017 Psoriasis-like skin disease 02/19/2017 Eczema of both upper extremities 02/16/2017 Chest pain, unspecified 10/08/2016 S/P pericardiocentesis 09/12/2016 Hyponatremia 09/08/2016 Polysubstance abuse 04/28/2016 Chronic steroid use 04/28/2016 Steroid-induced hyperglycemia 11/10/2013 PUD (peptic ulcer disease) 10/03/2012 Gout 07/06/2012 Anemia of chronic kidney failure 05/24/2012 HTN (hypertension) 04/30/2012 ESRD (end stage renal disease) on dialysis 04/30/2012 Diabetes mellitus with ESRD (end-stage renal disease) 04/14/2012 Obesity (BMI 30-39.9) 04/14/2012 Class: Chronic Hypoalbuminemia 04/11/2012 Hypothyroidism 04/07/2012 Rash 04/03/2012 Vitamin D deficiency 04/03/2012 Secondary renal hyperparathyroidism (HCC) 04/03/2012 Metabolic acidosis 04/02/2012 Past Medical History Diagnosis Date Abdominal pain, right upper quadrant 04/13/2012 Amphetamine and other psychostimulant dependence, continuous 04/02/2012 Anemia Anemia due to blood loss 04/30/2012 Asthma pt not using inhaler any more, no symptoms AV fistula (HCC) lt arm 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 Chronic obstructive asthma with exacerbation ([facility]) 10/27/2013 Chronic systolic heart failure ([facility]) 09/10/2016 Diabetes mellitus type I ([facility]) Dialysis patient ([facility]) DVT (deep venous thrombosis) ([facility]) x3 GI bleed 04/30/2012 from coumadin Gout Hyperkalemia 11/09/2013 Hyperlipidemia Hyperphosphatemia 05/24/2012 Hypertension Hyponatremia 09/08/2016 Knee pain, right 07/06/2012 MSSA (methicillin susceptible Staphylococcus aureus) infection 04/11/2012 Neuromuscular disorder (HCC) neuropathy 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 Rash and nonspecific skin eruption 04/03/2012 SOB (shortness of breath) 10/27/2013 Thyroid disease Walker as ambulation aid Past Surgical History Procedure Laterality Date AV FISTULA PLACEMENT Right 02/09/2014 Procedure: AV FISTULA; Surgeon: Oskar Meyer MD; Location: [facility] MA[facility] OR; Service: Vascula r; Laterality: Right; AV FISTULA PLACEMENT Left 05/06/2012 Procedure: AV FISTULA; Surgeon: Oskar Meyer MD; Location: [facility] OR; Service: Vascula r; Laterality: Left; Left arm possible right AV FISTULA REPAIR Left 07/11/2012 Procedure: AV FISTULA - GRAFT REPAIR/REVISION; Surgeon: Oskar Meyer MD; Location: [facility] IN OR; Service: Vascular; Laterality: Left; Superficialization of brachiobasilic fistula and right IJ perm cath insertion CATHETER REMOVAL Right 07/07/2012 Procedure: DIALYSIS CATHETER - REMOVAL; Surgeon: Oskar Meyer MD; Location: [facility] BEDSIDE P ROCEDURE; Service: General; Laterality: Right; perm cath COLONOSCOPY WITH EGD N/A 05/01/2012 Procedure: COLONOSCOPY W/ EGD; Surgeon: John Singleton MD; Location: [facility] ENDOSCOPY; Ser vice: Gastroenterology; Laterality: N/A; DIALYSIS FISTULA CREATION Left 07/11/2012 Procedure: DIALYSIS CATHETER - INSERTION; Surgeon: Oskar Meyer MD; Location: [facility] OR ; Service: Vascular; Laterality: Left; removed dialysis catheter from left neck and place d new on in left chest, attempted in right neck but unable to place DIALYSIS FISTULA CREATION Left 07/07/2012 Procedure: DIALYSIS CATHETER - INSERTION; Surgeon: Oskar Meyer MD; Location: [facility] BEDSIDE PROCEDURE; Service: General; Laterality: Left; temporary dialysis catheter KNEE ARTHROSCOPY Right 07/07/2012 Procedure: KNEE - ARTHROSCOPY; Surgeon: Favio Raza MD; Location: [facility] OR; Se rvice: Orthopedics; Laterality: Right; After 1530 SUPERFICIALIZATION OF AV FISTULA Right 03/30/2014 Procedure: AV FISTULA - SUPERFICIALIZATION; Surgeon: Oskar Meyer MD; Location: [facility] OR; Service: Vascular; Laterality: Right; UNLISTED PROCEDURE ARTHROSCOPY shoulder rt , ligaments Prescriptions Prior to Admission Medication Sig Dispense Refill Last Dose acetaminophen [...] Primary G out 02/14/2017 at Unknown time amLODIPine (NORVASC) 10 MG tablet Take 10 mg by mouth daily. 02/14/2017 at Unknown jb e b complex-vitamin c-folic acid (NEPHRO-THU) 0.8 MG [...] 2 (two) times daily with meal s. 02/15/2017 at Unknown time Cholecalciferol 2000 UNITS TABS Take 1 tablet [...] MG disintegrating tablet 02/15/2017 at Unknown time sevelamer (RENVELA) 800 MG tablet take 3 tablets by mouth three times a day WITH MEALS AND 1 TABLET WITH SNACKS 300 tablet 5 02/15/2017 at Unknown time sodium bicarbonate 650 MG tablet Take 1,300 mg by mouth 2 (two) times daily. 017 at Unknown time Allergies Allergen Reactions Azithromycin Rash Unknown Lisinopril Other (See Comments) "makes me sweat and knocked me out" Penicillins Other (See Comments) Unknown- not sure 10/08/12: Patient tolerated Ceftriaxone during previous admissions. Social History Substance Use Topics Smoking status: Former Smoker Packs/day: 1.00 Years: 23.00 Quit date: 04/28/2011 Smokeless tobacco: Never Used Comment: quit 17 yrs ago Alcohol use No Family History Problem Relation Age of Onset Heart disease Mother Heart disease Father Diabetes Father Cancer Father colon cancer Review of Systems Comprehensive ROS performed and pertinent items described in the HPI. Objective: Patient Vitals for the past 8 hrs: BP Temp Temp src Pulse Resp SpO2 Weight 07/23/17 1430 - - - 85 18 - - 07/23/17 1415 151/65 - - 83 16 99 % - 07/23/17 1400 169/70 - - 81 18 94 % - 07/23/17 1345 167/67 - - 80 16 93 % - 07/23/17 1330 163/71 - - 83 18 100 % - 07/23/17 1315 143/68 - - 81 16 100 % - 07/23/17 1300 116/57 - - 83 16 100 % - 07/23/17 1245 104/55 - - 84 18 100 % - 07/23/17 1230 154/61 - - 80 18 100 % - 07/23/17 1215 120/71 - - 80 16 100 % - 07/23/17 1212 - - - - - 100 % - 07/23/17 1200 130/65 - - 77 16 100 % - 07/23/17 1145 135/75 - - 77 16 100 % - 07/23/17 1130 125/72 - - 75 14 100 % - 07/23/17 1115 130/67 - - 72 18 100 % - 07/23/17 1103 134/66 - - 71 18 100 % - 07/23/17 1051 134/71 97.8 F (36.6 C) Oral 72 18 - 82.1 kg (181 lb) 07/23/17 0700 136/68 97.9 F (36.6 C) Oral 83 20 100 % - Vitals reviewed. Constitutional: Patient appears well-developed and well-nourished. HENT: Head: Normocephalic and atraumatic. Mouth/Throat: Oropharynx is clear and moist. Cardiovascular: Normal rate and regular rhythm. Pulmonary/Chest: Effort normal and breath sounds normal. Abdominal: Soft. Bowel sounds are normal. Musculoskeletal: Normal range of motion. Neurological: Patient is alert and oriented to person, place, and time. Skin: Skin is warm and dry. Vascular: Strong thrill in right upper extremity. No fluctuance palpated. No induration or erythema on right arm. Data Review: CBC: Lab Results Component Value Date WBC 7.21 07/23/2017 RBC 4.23 07/23/2017 BMP: Lab Results Component Value Date GLUCOSE 589 (HH) 07/12/2012 CO2 9 (LL) 07/23/2017 BUN 96 (H) 07/23/2017 CREATININE 12.7 (H) 07/23/2017 Coagulation: Lab Results Component Value Date INR 1.0 02/15/2017 APTT 29 02/15/2017 Assessment and plan: 52 yo male with [place] fistula of right upper extremity with recent drainage of purulent fl uid form around fistula positive for MRSA. Currently no overt signs of infection at this ti me. No erythema, induration, or fluctuance. Recommend continue antibiotics during dialysis . Encouraged good personal hygiene with patient. No need for further imaging at this time. Please feel free to call with any questions or concerns. koum, Juana Smallwood MD - 07/22/2017 6:05 PM PST Consults by Juana Kwok MD at 07/22/17 3527 Author: Juana Kwok MD Service: Nephrology Author Type: Physician Filed: 07/28/17 4938 Date of Service: 07/22/171804 Status: Signed Photolith Operator: Juana Kwok MD (Physician) Hospital Problem List: Principal Problem: 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HCC) Active Problems: Metabolic acidosis Hypothyroidism Diabetes mellitus with ESRD (end-stage renal disease) HTN (hypertension) ESRD (end stage renal disease) on dialysis Hyponatremia I was asked by the ED team to see Mr. Potter in consult today. As the admitting/consulting nasir wiseman is familiar with his case, I will not state his past history in detail. Briefly, he is a [age] y.o. male patient with history as delineated in the Past Medical & Surgical History sectio ns. He was admitted with MRSA abscess near AV fistula. I was called in to evaluate him for opinion on urgent HD need. He presented with with above. This past Saturday at the dialysis ctr in [place]: when the A V fistula was prepared to be accessed, pus flowed out of an abscess just outside of & medial to the distal end of the AVF. No canulation done. Pus sample sent to lab; pt asked to head to the ED as he was going to miss dialysis + risk of bacteremia + his hx of nonadherence wit h dialysis. Unfortunately he did not go to ED. Cx grew Staph. Pt was called to come in to th e ED. History & ROS obtained from : pt, his at bedside, chart review. The patient has histor y of ESRD, severe non-adherence with dialysis. He says that he feels 'good ' today. No hist ory of blurred vision tinnitus, headache, fever, chills, or cough. No nausea, vomiting, abd ominal pain, diarrhea, melena, or hematochezia. No chest pain, palpitation, dizziness, loss of consciousness, orthopnea, paroxysmal nocturnal dyspnea, or leg edema. No u/o.. The following portions of the patient's history were reviewed and updated as appropriate: a llergies, current medications, past medical history, past social history, past surgical hist ory, family history and problem list. I also reviewed with his preadmission records; these w ere very informative. ROS: As in History of Present Illness above & Assessment below. All the twelve systems were reviewed and were otherwise negative. allopurinol 100 mg Oral Daily amLODIPine 10 mg Oral Daily budesonide-formoterol 2 puff Inhalation 2 times daily [START ON 07/23/2017] carvedilol 3.125 mg Oral BID WC cholecalciferol 1,000 Units Oral Daily heparin (porcine) 5000 unit/0.5mL 5,000 Units Subcutaneous 2 times per day insulin lispro (human) 0-10 Units Subcutaneous TID AC insulin lispro (human) 0-5 Units Subcutaneous Nightly [START ON 07/23/2017] levothyroxine 75 mcg Oral QAM AC montelukast 10 mg Oral Nightly sevelamer 2,400 mg Oral TID WC sodium bicarbonate 1,300 mg Oral BID sodium chloride 10 mL Intravenous Q8H vancomycin 1,000 mg Intravenous See Admin Instructions dextrose No intake/output data recorded. No intake/output data recorded. P.E. BP (!) 186/95 (BP Location: Left upper arm) | Pulse 79 | Temp 97.6 F (36.4 C) (Oral) | Resp 16 | Ht 1.702 m (5' 7") | Wt 81.2 kg (179 lb 1.6 oz) | SpO2 100% | BMI 28.05 kg/ m General appearance: Pleasant, not in acute distress. Neck: Supple without tracheal deviation or jugular venous distension. Head and ENT: Head is atraumatic. The oropharynx is without erythema or thrush. Eyes: Anicteric. The extraocular muscle movements are normal. Lungs: Clear to auscultation bilaterally. There are no wheezes. Heart: Regular rate and rhythm without any rub, gallop. no murmur. Abdominal exam: Soft and nontender with normal bowel sounds. Musculoskeletal: No costovertebral angle tenderness bilaterally. Extremities: Warm to touch with no leg edema. There is no cyanosis. Skin: There are no petechiae, or ecchymosis. Multiple small ulcers on extremities. Multipl e dried up rashes noted too. Neurological: Awake, alert, and oriented to time, place, and person. Normal gross motor po wer. There is no asterixis. Psychiatric: The patient s behavior is normal. Judgment and thought content are normal. Access: right arm AVF with good thrill. Just distal to it: the abscess head is noted and is crusted over; no fluctuance noted. nontender. Lab Results Component Value Date BUN 90 (H) 07/22/2017 CREATININE 12 (H) 07/22/2017 EGFR 5 (L) 07/22/2017 NA 129 (L) 07/22/2017 K 3.9 07/22/2017 CL 97 (L) 07/22/2017 CO2 9 (LL) 07/22/2017 CA 7.1 (L) 07/22/2017 PHOS 7.5 (H) 02/16/2017 MG 3.1 (H) 02/16/2017 ALB 3.6 07/22/2017 HGB 12.4 (L) 07/22/2017 Assessment/Recommendations: Mr. Potter is a 52 y.o. male patient with ESRD. Now with an abscess just distal to the right arm AV fistula; discharge from that abscess grew MRSA from swab sent 07/19/17. Presented with: MRSA abscess near AV fistula Admitted with: same MRSA abscess near AV fistula: IV Vancomycin 1.5 g this evening Plan re-dosing after HD tomorrow VOLUME: EABV is ok No IVF need Advise fluid restriction of 1.2 L per 24 hrs There is no acute UF indication Given his tendency for anasarca: Encourage adequate intake & close dietitian F/U. Encourage ambulation safely. Encourage the adequate use of an incentive spirometer. RENAL FUNCTION: No RKF There is no acute SCUBA DIVING TEACHER indication No IVF need Strict I/O & daily weights. Dose all of his meds to his current intermittent HD. Continue to avoid all kinds of nephrotoxins. Target euvolumia with a MAP>75 mmHg as possible. BLOOD PRESSURE: Uncontrolled Resume outpt meds Plan for HD/UF tomorrow ELECTROLYTES: abnormal Sodium: mild hypoNa Potassium: ok Calcium: corrected Ca is low Magnesium: to be rechecked Phosphorus: to be rechecked Acid/Base: severely low; resume oral bicarb; HD in AM ALBUMIN: Relative hypoalbuminemia Prot suppl stressed ANEMIA: Associated with ESRD IV ANAYA with HD F/U: Pt feels fine. No weakness; no dyspnea; no desat. VS stable Plan HD in early AM. I discussed today with Mr. Potter the meaning of his presenting sxs and the interaction of beau t with his ESRD & dialysis & caring for his AV fistula; he voiced good understanding. I discussed with the ED team the case at the time of this encounter. I spent 70 total minutes today in interviewing & examining the patient, reviewing & updatin g the patient's chart, formulating a plan, in addition to patient education and discussions with the primary/consulting team. Thank you Dr Martínez for the opportunity to see this patient in consult today. Please do no t hesitate to call me at any time with questions or concerns. JUANA KWOK MD documented in thi s encounter ED Notes Conversion Transaction, Provider Unknown - 07/22/2017 5:44 PM PSTFormatting of this note m ight be different from the original. ED Notes by Abbie Townsend RN at 07/22/171743 Author: Abbie Townsend RN Service: (none) Author Type: Registered Nurse Filed: 07/22/171743 Date of Service: 07/22/171743 Status: Signed Photolith Operator: Abbie Townsend RN (Registered Nurse) Lab called to check on status of CRP and sed rate. They ar in process no additional tubes n eeded. Menus given to pt Abbie Townsend RN 07/22/171743 onver quique Transaction, Provider Unknown - 07/22/2017 4:57 PM PST ED Notes by Abbie Townsend RN at 07/22/171656 Author: Abbie Townsend RN Service: (none) Author Type: Registered Nurse Filed: 07/22/171658 Date of Service: 07/22/171656 Status: Signed Photolith Operator: Abbie Townsend RN (Registered Nurse) Makes some urine in morning only. Not able to provide urine specimen at this time. Abbie Townsend RN 07/22/171658 onver quique Transaction, Provider Unknown - 07/22/2017 4:53 PM PST ED Notes by Abbie Townsend RN at 07/22/171652 Author: Abbie Townsend RN Service: (none) Author Type: Registered Nurse Filed: 07/22/171655 Date of Service: 07/22/171652 Status: Signed Photolith Operator: Abbie Townsend RN (Registered Nurse) States no noted drainage over the weekend denies fever. Abbie Townsend RN 07/22/171655 onver quique Transaction, Provider Unknown - 07/22/2017 4:52 PM PST ED Notes by Abbie Townsend RN at 07/22/171651 Author: Abbie Townsend RN Service: (none) Author Type: Registered Nurse Filed: 07/22/171652 Date of Service: 07/22/171651 Status: Signed Photolith Operator: Abbie Townsend RN (Registered Nurse) Last dialysis 07/17. usually goes mon [facility] sat at [facility]. Abbie Townsend RN 07/22/171652 Umang Dumont PA-C - 07/22/2017 4:04 PM PSTFormatting of this note might be different from the orig inal. ED Provider Notes by Umang Lentz PA-C at 07/22/171603 Author: Umang Lentz PA-C Service: Emergency Department Author Type: Physician Streets And Buildings Decorator - Certified Filed: 07/22/172119 Date of Service: 07/22/171603 Status: Attested Photolith Operator: Umang Lentz PA-C (Physician Streets And Buildings Decorator - Certified) Cosigner: Onelia Dawson at 07/22/172316 Attestation signed by Huan Martínez DO at 07/22/172316 I have discussed the treatment and care plan with the midlevel and I agree with the treatme nt and patient management plan as discussed. Procedures [facility] [address] [facility] History of Present Illness Patient Identification Enrique Potter is a 52 y.o. male. Patient information was obtained from patient. History/Exam limitations: none. Patient presented to the Emergency Department by: Car Chief Complaint Chief Complaint Patient presents with Skin Complaint Pt states "my fistula is leaking pus." Referral saida Smith RN. The patient complains of right arm fistula abscess . Onset of symptoms was this morning, wi th a resolving course since that time. The symptoms are described to be of mild severity. T he patient has no additional complaints. The patient describes the quality and location of the symptoms as the following: right upper arm brachial plexus fistula. Care prior to arriva l consisted of rest, with out relief. Patient was seen at dialysis appointment, they sent billie m to the ED due to pus coming from his fistula, dialysis not completed today. Past Medical History Diagnosis Date Abdominal pain, right upper quadrant 04/13/2012 Amphetamine and other psychostimulant dependence, continuous 04/02/2012 Anemia Anemia due to blood loss 04/30/2012 Asthma pt not using inhaler any more, no symptoms AV fistula ([facility]) lt arm 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 Chronic obstructive asthma with exacerbation ([facility]) 10/27/2013 Chronic systolic heart failure ([facility]) 09/10/2016 Diabetes mellitus type I ([facility]) Dialysis patient ([facility]) DVT (deep venous thrombosis) ([facility]) x3 GI bleed 04/30/2012 from coumadin Gout Hyperkalemia 11/09/2013 Hyperlipidemia Hyperphosphatemia 05/24/2012 Hypertension Hyponatremia 09/08/2016 Knee pain, right 07/06/2012 MSSA (methicillin susceptible Staphylococcus aureus) infection 04/11/2012 Neuromuscular disorder ([facility]) neuropathy 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 Rash and nonspecific skin eruption 04/03/2012 SOB (shortness of breath) 10/27/2013 Thyroid disease Walker as ambulation aid Past Surgical History Procedure Laterality Date AV FISTULA PLACEMENT Right 02/09/2014 Procedure: AV FISTULA; Surgeon: Oskar Meyer MD; Location: [facility] OR; Service: Vascula r; Laterality: Right; AV FISTULA PLACEMENT Left 05/06/2012 Procedure: AV FISTULA; Surgeon: Oskar Meyer MD; Location: [facility]; Service: Vascula r; Laterality: Left; Left arm possible right AV FISTULA REPAIR Left 07/11/2012 Procedure: AV FISTULA - GRAFT REPAIR/REVISION; Surgeon: Oskar Meyer MD; Location: [facility] IN OR; Service: Vascular; Laterality: Left; Superficialization of brachiobasilic fistula and right IJ perm cath insertion CATHETER REMOVAL Right 07/07/2012 Procedure: DIALYSIS CATHETER - REMOVAL; Surgeon: Oskar Meyer MD; Location: [facility] P ROCEDURE; Service: General; Laterality: Right; perm cath COLONOSCOPY WITH EGD N/A 05/01/2012 Procedure: COLONOSCOPY W/ EGD; Surgeon: John Singleton MD; Location: [facility] ENDOSCOPY; Ser vice: Gastroenterology; Laterality: N/A; DIALYSIS FISTULA CREATION Left 07/11/2012 Procedure: DIALYSIS CATHETER - INSERTION; Surgeon: Oskar Meyer MD; Location: [facility] OR ; Service: Vascular; Laterality: Left; removed dialysis catheter from left neck and place d new on in left chest, attempted in right neck but unable to place DIALYSIS FISTULA CREATION Left 07/07/2012 Procedure: DIALYSIS CATHETER - INSERTION; Surgeon: Oskar Meyer MD; Location: [facility] BEDSIDE PROCEDURE; Service: General; Laterality: Left; temporary dialysis catheter KNEE ARTHROSCOPY Right 07/07/2012 Procedure: KNEE - ARTHROSCOPY; Surgeon: Favio Raza MD; Location: [facility] OR; rvice: Orthopedics; Laterality: Right; After 1529 SUPERFICIALIZATION OF AV FISTULA Right 03/30/2014 Procedure: AV FISTULA - SUPERFICIALIZATION; Surgeon: Oskar Meyer MD; Location: [facility] OR; Service: Vascular; Laterality: Right; UNLISTED PROCEDURE ARTHROSCOPY shoulder rt , ligaments Prior to Admission medications Medication Sig Start [...] TABS tablet Take 1 tablet by mouth yelena y. 01/24/17 Juan Timmons MD betamethasone valerate (VALISONE) 0.1 % cream Apply topically 2 (two) times daily for 7 da ys. 02/19/17 02/26/17 Khanh Rangel MD budesonide-formoterol (SYMBICORT) 160-4.5 MCG/ACT inhaler Inhale 2 [...] (two) times daily. 10/28/13 Karri Huff MD HYDROcodone-acetaminophen (NORCO) 5-325 MG per tablet 10/03/16 Historical Provider levothyroxine (SYNTHROID) 75 MCG tablet Take 75 mcg by mouth every morning before breakfast . Indications: Underactive Thyroid CLARENCE Earl montelukast (SINGULAIR) 10 MG tablet Take 1 tablet by mouth nightly. 10/28/13 10/28/14 Karri Huff MD ondansetron (ZOFRAN-ODT) 8 MG disintegrating tablet 10/03/16 Historical Provider sevelamer (RENVELA) 800 MG tablet take 3 tablets by mouth three times a day WITH MEALS AND 1 TABLET WITH SNACKS 01/24/17 Juan Timmons MD sodium bicarbonate 650 MG tablet Take 1,300 mg by mouth 2 (two) times daily. Historica l Provider Allergies Allergen Reactions Azithromycin Rash Unknown Lisinopril Other (See Comments) "makes me sweat and knocked me out" Penicillins Other (See Comments) Unknown- not sure 10/08/12: Patient tolerated Ceftriaxone during previous admissions. Social History Social History Marital status: Spouse name: Shyanne Number of children: N/A Years of education: N/A Occupational History Not on file. Social History Main Topics Smoking status: Former Smoker Packs/day: 1.00 Years: 23.00 Quit date: 04/28/2011 Smokeless tobacco: Never Used Comment: quit 17 yrs ago Alcohol use No Drug use: No Comment: Smokes THC Daily, quit methaamphetamine in mar 2012 after ARF Sexual activity: Not on file Other Topics Concern Not on file Social History Narrative , LIVES WITH . HAS NO BIOLOGICAL KIDS; 2 STEP KIDS. CURRENTLY UNEMPLOYED, BEFOR E WORKED AT [employer] IN [place]. Quit METHAMPHETAMINES PER PATIENT after t he ARF in mar 2012. FATHER HAS COLON CANCER, HEART DISEASE, MOTHER 15 YEARS AGO. NO FH KIDNEY PROB LEMS. Family History Problem Relation Age of Onset Heart disease Mother Heart disease Father Diabetes Father Cancer Father colon cancer ROS Review of Systems Constitutional: Negative for: fever, chills, fatigue, weight loss Eyes: Negative for: decreased vision or irritated eyes Nose: Negative for: nosebleed Throat: Negative for: mouth sores Cardiovascular/Respiratory: Negative for: shortness of breath, cough, chest pain Gastrointestinal: Negative for: abdominal pain, vomiting, diarrhea, black or bloody stools Genitourinary: Negative for: dysuria, hematuria, urinary problems Musculoskeletal: Negative for: myalgias and arthralgias Skin: Negative for: laceration or lesion Positive for: Fistula right upper arm abscess Neuro and psych: Negative for: fainting, head injury, seizure, trouble walking Endocrine/Heme/Lymph: Negative for: swollen lymph nodes, easy bruising Physical Exam BP 174/79 (BP Location: Left upper arm) | Pulse 91 | Temp 97.5 F (36.4 C) (Temporal) | Resp 20 | Wt 81.9 kg (180 lb 8.9 oz) | SpO2 99% | BMI 28.28 kg/m Pulse Oximetry interpretation: Normal General: Alert, in no apparent distress Eyes: Normal inspection, pupils equal and round, non-icteric Neck: Normal inspection Supple No lymphadenopathy No meningismus Cardiovascular: Regular rate and rhythm No murmurs Respiratory: Breath sounds normal bilaterally Abdomen: Soft, non-tender, distended Back: Normal inspection Skin: Fistula present brachial venous plexus. Mild erythema over distal fistula. No warmth , petechiae or purpura or evidence of fluctuant lesion or active drainage of purulent fluid or evidence of lymphangitis. Warm and dry No rash Neuro: No motor deficit No sensory deficit Normal gait ED Course Medical Decision Making and Emergency Department Course ED Department Course 1500: Examined and spoke with patient who relates a history of going to dialysis appointmen t and being told pus was coming out of fistula. Differential diagnosis includes phlebitis, c ellulitis, vasculitis. Discussed plans for work up that will include blood cultures, crp, es r, lactic acid, cbc, cmp. 1512: Metabolic derangement; hyponatremia, hypochloremia, acute kidney failure. Macrocytic anemia 1758: CRP elevated at 1.3 1809: Consult with Dr Kwok who relates patient has not been to past few dialysis appointme nts. Dr Kwok cultured the purulent discharge which demonstrated heavy MRSA growth. He recom mended patient be admitted for IV abx and dialysis because he is concerned with patients out patient compliance. I appreciate Dr. Kwok. 1809: Dicussed the labs and imaging with the patient who agrees to be admitted. 1824: Discussed the case with Dr. Edward who is agreeable with the plans for admission. I appr eciate Dr. Edward 2104: Patient has been transferred to the floor and is now in the care of the hospitalist priscilla murillo. I appreciate the hospitalist service Records Reviewed Nursing notes. Labs & Radiology Results Laboratory Evaluation Results Procedure Component Value Ref Range Date/Time C-Reactive Protein [[id number]] (Abnormal) Collected: 07/22/17 144 Order Status: Completed Specimen: Blood Updated: 07/22/17 1759 CRP 1.3 (H) <0.5 mg/dL Sedimentation Rate (ESR) [[id number]] Collected: 07/22/17 1440 Order Status: Completed Specimen: Blood Updated: 07/22/17 1745 ESR 13 0 - 20 mm/Hr Blood Culture Set 1 [[id number]] Collected: 07/22/17 1505 Order Status: Sent Specimen: Blood from Blood, peripheral draw Updated: 07/22/17 1658 Lactic acid [[id number]] Collected: 07/22/17 1430 Order Status: Completed Specimen: Blood Updated: 07/22/17 1512 LACTIC ACID 1.0 0.4 - 2.0 mmol/L Comprehensive metabolic panel [[id number]] (Abnormal) Collected: 07/22/17 1430 Order Status: Completed Specimen: Blood Updated: 07/22/17 1512 SODIUM 129 (L) 135 - 145 mmol/L POTASSIUM 3.9 3.5 - 4.9 mmol/L CHLORIDE 97 (L) 99 - 109 mmol/L CO2 9 (LL) 23 - 32 mmol/L ANION GAP AGAP 30 (H) 5 - 20 mmol/L GLUCOSE 183 (H) 65 - 99 mg/dL BUN 90 (H) 8 - 25 mg/dL CREATININE 12 (H) 0.70 - 1.30 mg/dL BUN/CREAT 8 CALCIUM 7.1 (L) 8.5 - 10.5 mg/dL TOTAL PROTEIN 7.5 6.3 - 8.2 g/dL Albumin 3.6 3.6 - 5.0 g/dL GLOBULIN 3.9 1.3 - 4.9 g/dL A/G 0.9 (L) 1.0 - 2.4 TBIL 0.6 0.1 - 1.5 mg/dL ALK PHOS 140 (H) 35 - 115 U/L AST 48 (H) 10 - 45 U/L ALT 56 10 - 65 U/L EGFR 5 (L) >60 mL/min/1.73m2 CBC with differential [[id number]] (Abnormal) Collected: 07/22/17 1430 Order Status: Completed Specimen: Blood Updated: 07/22/17 1450 WBC 9.45 3.80 - 11.00 K/uL RBC 4.22 4.20 - 5.70 M/uL HGB 12.4 (L) 13.2 - 17.0 g/dL HCT 37.7 (L) 39.0 - 50.0 % MCV 89.5 80.0 - 100.0 fl MCH 29.3 27.0 - 34.0 pg MCHC 32.8 32.0 - 35.5 g/dL RDW SD 55.6 (H) 37 - 53 fl PLT 192 150 - 400 K/uL MPV 6.5 fl DIFF TYPE AUTOMATED NEUTROPHILS 82.56 % LYMPHOCYTES 8.31 % MONOCYTES 7.15 % EOSINOPHILS 1.05 % BASOPHILS 0.93 % NEUTROPHILS ABS 7.81 (H) 1.90 - 7.40 K/uL LYMPHOCYTES ABS 0.79 (L) 1.00 - 3.90 K/uL MONOCYTES ABS 0.68 0.00 - 0.80 K/uL EOSINOPHILS ABS 0.10 0.00 - 0.50 K/uL BASOPHILS ABS 0.09 0.00 - 0.10 K/uL Blood Culture Set 2 [[id number]] Order Status: Sent Specimen: Blood from Blood Radiology and EKG Evaluation Imaging Results None Diagnosis & Disposition ED Diagnoses Final diagnoses MRSA infection Complication of AV dialysis fistula, initial encounter Disposition: ED Disposition ED Disposition Condition Comment Admit/Observation Bed request special needs: Dialysis Diagnosis?: MRSA infection near fistula Umang Lentz, PA-C 07/22/172119 Huan Priscilla Martínez, 07/22/17 2317 onversion Transaction, Provider Unknown - 07/22/2017 2:56 PM PSTFormatting of this note might be different from t he original. ED Notes by Eri Ma RN at 07/22/17 1456 Author: Eri Ma RN Service: (none) Author Type: Registered Nurse Filed: 07/22/17 1456 Date of Service: 07/22/171455 Status: Signed Photolith Operator: Eri Ma RN (Registered Nurse) HARDIK Vicente obtaining first blood culture. Pt will still need second blood culture. Pt and pt updated on intake plan of care and returned to waiting room. Eri Ma RN 07/22/17 2376 onver quique Transaction, Provider Unknown - 07/22/2017 2:39 PM PST ED Notes by Eri Ma RN at 07/22/17 1439 Author: Eri Ma RN Service: (none) Author Type: Registered Nurse Filed: 07/22/17 1440 Date of Service: 07/22/17 1439 Status: Signed Photolith Operator: Eri Ma RN (Registered Nurse) Pt updated on intake plan of care. Lab called to obtain both sets of blood cultures. Eri Ma RN 07/22/17 1440 osef Smith PA-C - 07/22/2017 2:26 PM PSTFormatting of this note might be different from the o riginal. ED Provider Notes by Yosef Smith PA-C at 07/22/17 1426 Author: Yosef Smith PA-C Service: Emergency Department Author Type: Physician Keena gonzales Filed: 07/22/17 1428 Date of Service: 07/22/17 4540 Status: Signed Photolith Operator: Yosef Smith PA-C (Physician [employer]) Cosigner: Gareth Purcell DO at 07/22/17 1731 Procedures Chief Complaint Patient presents with Skin Complaint Pt states "my fistula is leaking pus." Referral Sarah interpreter for the deaf. --The patient relates complaints of-Right arm fistula- pustulant ( at dialysis on Saturday)- normal days M,W,F - This is a(n) new onset to a new problem Symptoms started x Saturday- - with a(n) Constant course since the onset. The patient rates symptoms as-Mild to Moderate The patient has done/taken nothing for symptoms- with minimal relief. He was unable to get here till today. He still had dialysis on Saturday, but has not had it today Exam= Right arm- not warm or erythematous. Non tender Denies other symptoms. I have discussed the initial plan of Labs - with the patient---The patient expresses unders tanding and is agreeable. The patient denies the need for pain management at this time. Provider taking over care should evaluate for need of further workup. The patient will be moved to an appropriate zone. Past Medical History Diagnosis Date Abdominal pain, right upper quadrant 04/13/2012 Amphetamine and other psychostimulant dependence, continuous ([facility]) 04/02/2012 Anemia Anemia due to blood loss 04/30/2012 Asthma pt not using inhaler any more, no symptoms AV fistula (HCC) lt arm 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 Chronic obstructive asthma with exacerbation ([facility]) 10/27/2013 Chronic systolic heart failure ([facility]) 09/10/2016 Diabetes mellitus type I ([facility]) Dialysis patient (HCC) DVT (deep venous thrombosis) ([facility]) x3 GI bleed 04/30/2012 from coumadin Gout Hyperkalemia 11/09/2013 Hyperlipidemia Hyperphosphatemia 05/24/2012 Hypertension Hyponatremia 09/08/2016 Knee pain, right 07/06/2012 MSSA (methicillin susceptible Staphylococcus aureus) infection 04/11/2012 Neuromuscular disorder ([facility]) neuropathy 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 Rash and nonspecific skin eruption 04/03/2012 SOB (shortness of breath) 10/27/2013 Thyroid disease Walker as ambulation aid Yosef Smith PA-C 07/22/17 1421 documented in this encounter Miscellaneous Notes Plan of Care - Conversion Transaction, Provider Unknown - 07/24/2017 11:50 PM PST Plan of Care by Carmina Lepe RN at 07/24/172349 Author: Carmina Lepe RN Service: (none) Author Type: Registered Nurse Filed: 07/24/172349 Date of Service: 07/24/172349 Status: Signed Photolith Operator: Carmina Lepe RN (Registered Nurse) Problem: Pain Goal: Patient's pain/discomfort is manageable Assess and monitor patient's pain using appropriate pain scale. Collaborate with interdisci plinary team and initiate plan and interventions as ordered. Re-assess patient's pain level approximately 1-2 hours after pain management intervention. Premedicate as needed. Outcome: Progressing Pt stated that he is having no pain. I informed pt to let me know if he starts to feel any pain anywhere. Pt was also rounded on hourly. Problem: Safety Goal: Patient will be injury free during hospitalization Assess and monitor vitals signs, neurological status including level of consciousness and o rientation. Assess patient's risk for falls and implement fall prevention plan of care and i nterventions per hospital policy. Ensure arm band on, uncluttered walking paths in room, adequate room lighting, call light a nd overbed table within reach, bed in low position, wheels locked, side rails up per policy, and non-skid footwear provided. Outcome: Progressing Pt has been injury free since admission. Pt is independent in the room. Call light is withi n reach. Problem: Psychosocial Needs Goal: Demonstrates ability to cope with hospitalization/illness Assess and monitor patients ability to cope with his/her illness. Outcome: Progressing Pt has in room and appears to be coping well with the hospitalization. lan o f Care - Conversion Transaction, Provider Unknown - 07/24/2017 6:47 PM PSTFormatting of thi s note might be different from the original. Plan of Care by Heather Zavaleta RN at 07/24/17 7488 Author: Heather Zavaleta RN Service: (none) Author Type: Registered Nurse Filed: 07/24/17 1847 Date of Service: 07/24/171846 Status: Signed Photolith Operator: Heather Zavaleta RN (Registered Nurse) Problem: Pain Goal: Patient's pain/discomfort is manageable Assess and monitor patient's pain using appropriate pain scale. Collaborate with interdisci plinary team and initiate plan and interventions as ordered. Re-assess patient's pain level approximately 1-2 hours after pain management intervention. Premedicate as needed. Outcome: Progressing Pt has denied any pain all shift. Comments: .Heather Zavaleta RN lan o f Care - Conversion Transaction, Provider Unknown - 07/23/2017 11:32 PM PSTFormatting of thi s note might be different from the original. Plan of Care by Madelyn Dimas RN at 07/23/17 2332 Author: Madelyn Dimas RN Service: (none) Author Type: Registered Nurse Filed: 07/24/17 0415 Date of Service: 07/23/172 Status: Addendum Photolith Operator: Madelyn Dimas RN (Registered Nurse) Related Notes: Original Note by Madelyn Dimas RN (Registered Nurse) filed at 07/23/17 233 2 Overnight Events: No acute overnight changes. Madelyn Dimas RN Problem: Daily Care Goal: Daily care needs are met Assess and monitor ability to perform self care and identify potential discharge needs. Outcome: Progressing Patient showered this shift, denies any needs. Problem: Glucose Imbalance Goal: Clinical indication of glucose balance is achieved Outcome: Progressing Blood glucose 136 this evening, no nightly insulin coverage needed. lan o f Care - Conversion Transaction, Provider Unknown - 07/23/2017 10:59 AM PSTFormatting of thi s note might be different from the original. Plan of Care by Camilo Samson RN at 07/23/17 1059 Author: Camilo Samson RN Service: (none) Author Type: Registered Nurse Filed: 07/23/17 1059 Date of Service: 07/23/17 105 Status: Signed Photolith Operator: Camilo Samson RN (Registered Nurse) Problem: Discharge Barriers Goal: Patient's discharge needs are met Collaborate with interdisciplinary team and initiate plans and interventions as needed. Outcome: Progressing Receiving dialysis and abx today with dialysis in avf. Camilo Samson RN lan o f Care - Conversion Transaction, Provider Unknown - 07/22/2017 10:59 PM PSTFormatting of thi s note might be different from the original. Plan of Care by Madelyn Dimas RN at 07/22/172258 Author: Madelyn Dimas RN Service: (none) Author Type: Registered Nurse Filed: 07/23/17 0435 Date of Service: 07/22/172258 Status: Addendum Photolith Operator: Madelyn Dimas RN (Registered Nurse) Related Notes: Original Note by Madelyn Dimas RN (Registered Nurse) filed at 07/22/17 225 9 Overnight Events: To have HD today. Denies any pain or limited mobility to RUE. Madelyn Dimas RN Problem: Glucose Imbalance Goal: Clinical indication of glucose balance is achieved Outcome: Progressing Blood glucose 159 this evening, no sliding scale coverage needed. Problem: Risk for Falls Goal: No falls during hospitalization Patient will not fall during hospitalization. Intervention: Fall prevention Call light within reach. Bed in low locked position. Independent in room. docume nted in this encounter Plan of Treatment Not on filedocumented as of this encounter Procedures + +--------+ + + + | Procedure Name | Priori | Date/Time | Associated Diagnosis | Comments | | | ty | | | | + +--------+ + + + | POC GLUCOSE | Routin | 07/25/2017 | | Results for this | | | e | 11:14 AM | | procedure are in the | | | | PST | | results section. | + +--------+ + + + | EXTERNAL LAB: CBC | Routin | 07/25/2017 | | Results for this | | | e | 5:45 AM | | procedure are in the | | | | PST | | results section. | + +--------+ + + + | RENAL FUNCTION PANEL | Routin | 07/25/2017 | | Results for this | | | e | 5:45 AM | | procedure are in the | | | | PST | | results section. | + +--------+ + + + | POC GLUCOSE | Routin | 07/25/2017 | | Results for this | | | e | 5:37 AM | | procedure are in the | | | | PST | | results section. | + +--------+ + + + | URINALYSIS, REFLEX | Routin | 07/24/2017 | | Results for this | | MICROSCOPIC AND/OR | e | 11:35 PM | | procedure are in the | | CULTURE | | PST | | results section. | + +--------+ + + + | POC GLUCOSE | Routin | 07/24/2017 | | Results for this | | | e | 9:35 PM | | procedure are in the | | | | PST | | results section. | + +--------+ + + + | POC GLUCOSE | Routin | 07/24/2017 | | Results for this | | | e | 4:01 PM | | procedure are in the | | | | PST | | results section. | + +--------+ + + + | POC GLUCOSE | Routin | 07/24/2017 | | Results for this | | | e | 11:28 AM | | procedure are in the | | | | PST | | results section. | + +--------+ + + + | POC GLUCOSE | Routin | 07/24/2017 | | Results for this | | | e | 5:18 AM | | procedure are in the | | | | PST | | results section. | + +--------+ + + + | EXTERNAL LAB: CBC | Routin | 07/24/2017 | | Results for this | | | e | 4:30 AM | | procedure are in the | | | | PST | | results section. | + +--------+ + + + | MAGNESIUM | Routin | 07/24/2017 | | Results for this | | | e | 4:30 AM | | procedure are in the | | | | PST | | results section. | + +--------+ + + + | RENAL FUNCTION PANEL | Routin | 07/24/2017 | | Results for this | | | e | 4:30 AM | | procedure are in the | | | | PST | | results section. | + +--------+ + + + | POC GLUCOSE | Routin | 07/23/2017 | | Results for this | | | e | 9:31 PM | | procedure are in the | | | | PST | | results section. | + +--------+ + + + | POC GLUCOSE | Routin | 07/23/2017 | | Results for this | | | e | 4:24 PM | | procedure are in the | | | | PST | | results section. | + +--------+ + + + | HEPATITIS PANEL, | Routin | 07/23/2017 | | Results for this | | CHRONIC | e | 10:32 AM | | procedure are in the | | | | PST | | results section. | + +--------+ + + + | POC GLUCOSE | Routin | 07/23/2017 | | Results for this | | | e | 5:42 AM | | procedure are in the | | | | PST | | results section. | + +--------+ + + + | EXTERNAL LAB: CBC | Routin | 07/23/2017 | | Results for this | | | e | 5:01 AM | | procedure are in the | | | | PST | | results section. | + +--------+ + + + | MAGNESIUM | Routin | 07/23/2017 | | Results for this | | | e | 5:01 AM | | procedure are in the | | | | PST | | results section. | + +--------+ + + + | RENAL FUNCTION PANEL | Routin | 07/23/2017 | | Results for this | | | e | 5:01 AM | | procedure are in the | | | | PST | | results section. | + +--------+ + + + | POC GLUCOSE | Routin | 07/22/2017 | | Results for this | | | e | 10:00 PM | | procedure are in the | | | | PST | | results section. | + +--------+ + + + | US EXTREMITY | Routin | 07/22/2017 | | Results for this | | NONVASCULAR LIMITED | e | 9:44 PM | | procedure are in the | | RIGHT | | PST | | results section. | + +--------+ + + + | CULTURE, BLOOD, 2ND | STAT | 07/22/2017 | | Results for this | | SPECIMEN (NON-ORD) | | 9:26 PM | | procedure are in the | | | | PST | | results section. | + +--------+ + + + | MRSA NAAT | Timed | 07/22/2017 | | Results for this | | | | 9:22 PM | | procedure are in the | | | | PST | | results section. | + +--------+ + + + | CULTURE, BLOOD | STAT | 07/22/2017 | | Results for this | | | | 3:05 PM | | procedure are in the | | | | PST | | results section. | + +--------+ + + + | SEDIMENTATION RATE, | Routin | 07/22/2017 | | Results for this | | AUTOMATED | e | 2:40 PM | | procedure are in the | | | | PST | | results section. | + +--------+ + + + | C-REACTIVE PROTEIN | Routin | 07/22/2017 | | Results for this | | | e | 2:40 PM | | procedure are in the | | | | PST | | results section. | + +--------+ + + + | EXTERNAL LAB: CBC | Routin | 07/22/2017 | | Results for this | | | e | 2:30 PM | | procedure are in the | | | | PST | | results section. | + +--------+ + + + | LACTIC ACID | Routin | 07/22/2017 | | Results for this | | | e | 2:30 PM | | procedure are in the | | | | PST | | results section. | + +--------+ + + + | COMPREHENSIVE | Routin | 07/22/2017 | | Results for this | | METABOLIC PANEL | e | 2:30 PM | | procedure are in the | | | | PST | | results section. | + +--------+ + + + documented in this encounter Results POC Glucose (07/25/2017 11:14 AM PST) + + + + + + | Component | Value | Ref Range | Performed | Pathologist | | | | | At | Signature | + + + + + + | Glucose, | 117 (H)Comment: Testing | 65 - 99 mg/dL | EXTERNAL | | | Fingerstick | performed at [facility];[address] | | LAB | | | | [address];[place] | | | | | | [id number] | | | | + + + + + + + + | Specimen | + + | | + + + +---------+ + + | Performing | Address | City/State/Zipcode | Phone Number | | Organization | | | | + +---------+ + + | EXTERNAL LAB | | | | + +---------+ + + External Lab: CBC (07/25/2017 5:45 AM PST) + + + + + + | Component | Value | Ref Range | Performed | Pathologist | | | | | At | Signature | + + + + + + | WBC | 5.65 | 3.80 - 11.00 | EXTERNAL | | | | | K/uL | LAB | | + + + + + + | Non- | 4.38 | 4.20 - 5.70 | EXTERNAL | | | Red Blood | | M/uL | LAB | | | Cells | | | | | | Counted | | | | | + + + + + + | Hemoglobin | 13.1 (L) | 13.2 - 17.0 | EXTERNAL | | | | | g/dL | LAB | | + + + + + + | Hematocrit, | 39.1 | 39.0 - 50.0 % | EXTERNAL | | | POC | | | LAB | | + + + + + + | MCV | 89.3 | 80.0 - 100.0 fl | EXTERNAL | | | | | | LAB | | + + + + + + | MCH | 30.0 | 27.0 - 34.0 pg | EXTERNAL | | | | | | LAB | | + + + + + + | MCHC | 33.6 | 32.0 - 35.5 | EXTERNAL | | | | | g/dL | LAB | | + + + + + + | RDW-CV | 54.7 (H) | 37 - 53 [...] | MPV | 7.1 | fl | EXTERNAL | | | | | | LAB | | + + + + + + | Differentia | AUTOMATED | | EXTERNAL | | | l Type | | | LAB | | + + + + + + | % Segmented | 55.56 | % | EXTERNAL | | | | | | LAB | | | Neutrophils | | | | | + + + + + + | % | 15.72 | % | EXTERNAL | | | Lymphocytes | | | LAB | | + + + + + + | % Monocytes | 12.22 | % | EXTERNAL | | | | | | LAB | | + + + + + + | % | 15.37 | % | EXTERNAL | | | Eosinophils | | | LAB | | + + + + + + | % Basophils | 1.13 | % | EXTERNAL | | | | | | LAB | | + + + + + + | Absolute | 3.14 | 1.90 - 7.40 | EXTERNAL | | | Segmented | | K/uL | LAB | | | Neutrophils | | | | | + + + + + + | Absolute | 0.89 (L) | 1.00 - 3.90 | EXTERNAL | | | Lymphocytes | | K/uL | LAB | | + + + + + + | Absolute | 0.69 | 0.00 - 0.80 | EXTERNAL | | | Monocytes | | K/uL | LAB | | + + + + + + | Absolute | 0.87 (H) | 0.00 - 0.50 | EXTERNAL | | | Eosinophils | | K/uL | LAB | | + + + + + + | Absolute | 0.06Comment: Testing | 0.00 - 0.10 | EXTERNAL | | | Basophils | performed at [facility], [address] | K/uL | LAB | | | | [address], | | | | | | [place] [address] | | | | + + + [...] + +---------+ + + Renal Function Panel (07/25/2017 5:45 AM PST) + + + + + + | Component | Value | Ref Range | Performed | Pathologist | | | | | At | Signature | + + + + + + | Na | 136 | 135 - 145 | EXTERNAL | | | | | mmol/L | LAB | | + + + + + + | K | 3.9 | 3.5 - 4.9 | EXTERNAL | [...] + + + + | Glucose, | 90 | 65 - 99 mg/dL | EXTERNAL | | | Fasting | | | LAB | | + + + + + + | BUN | 25 | 8 - 25 mg/dL | EXTERNAL | | | | | | LAB | | + + + + + + | Creatinine | 5.5 (H) | 0.70 - 1.30 | EXTERNAL | | | | | mg/dL | LAB | | + + + + + + | Calcium | 6.9 (L) | 8.5 - 10.5 | EXTERNAL | | | | | mg/dL | LAB | | + + + + + + | Albumin | 3.2 (L) | 3.6 - 5.0 g/dL | EXTERNAL | | | | | | LAB | | + + + + + + | PHOSPHORUS | 3.7 | 2.3 - 4.8 mg/dL | EXTERNAL [...] | | | | | | at [facility], [address] | | | | | | [address], | | | | | | [place] [address] | | | | + + + + + + + + | Specimen | + + | | + + + +---------+ + + | Performing | Address | City/State/Zipcode | Phone Number | | Organization | | | | + +---------+ + + | EXTERNAL LAB | | | | + +---------+ + + POC Glucose (07/25/2017 5:37 AM PST) + + + + + + | Component | Value | Ref Range | Performed | Pathologist | | | | | At | Signature | + + + + + + | Glucose, | 121 (H)Comment: Testing | 65 - 99 mg/dL | EXTERNAL | | | Fingerstick | performed at [facility];[address] | | LAB | | | | [address];[place], [place] | | | | | | [address] | | | | + + + + + + + + | Specimen | + + | | + + + +---------+ + + | Performing | Address | City/State/Zipcode | Phone Number | | Organization | | | | + +---------+ + + | EXTERNAL LAB | | | | + +---------+ + + Urinalysis, Reflex Microscopic and/or Culture (07/24/2017 11:35 PM PST) + + + + + + | Component | Value | Ref Range | Performed | Pathologist | | | | | At | Signature | + + + + + + | Color | YELLOW | | EXTERNAL | | | | | | LAB | | + + + + + + | Clarity, | HAZY | | EXTERNAL | | | Urine | | | LAB | | + + + + + + | Specific | 1.012 | 1.002 - 1.030 | EXTERNAL | | | [place], | | | LAB | | | Urine | | | | | + + + + + + | Leukocyte | NEGATIVE | | EXTERNAL | | | Esterase, | | | LAB | | | Urine | | | | | + + + + + + | Nitrite, | NEGATIVE | | EXTERNAL | | | Urine | | | LAB | | + + + + + + | Urobilinoge | NORMAL | mg/dL | EXTERNAL | | | n, Urine | | | LAB | | + + + + + + | Protein, | >500 (A) | mg/dL | EXTERNAL | | | Urine | | | LAB | | + + + + + + | pH, Urine | 5.0 | 5.0 - 8.0 | EXTERNAL | | | | | | LAB | | + + + + + + | Blood, | NEGATIVE | | EXTERNAL | | | Urine | | | LAB | | + + + + + + | Ketones | NEGATIVE | mg/dL | EXTERNAL | | | | | | LAB | | + + + + + + | Bilirubin, | NEGATIVE | | EXTERNAL | | | Urine | | | LAB | | + + + + + + | Glucose, | 50 (A) | mg/dL | EXTERNAL | | | Urine | | | LAB | | + + + + + + | WBC, UA | 3-5 | 0 - 5 /hpf | EXTERNAL | | | | | | LAB | | + + + + + + | RBC, UA | 0-2 | 0 - 2 /hpf | EXTERNAL | | | | | | LAB | | + + + + + + | Bacteria, | 1+ (A) | | EXTERNAL | | | UA | | | LAB | | + + + + + + | Epithelial | 16-25 | /lpf | EXTERNAL | | | Cells | | | LAB | | + + + + + + | Mucus, | 1+ | | EXTERNAL | | | Urine | | | LAB | | + + + + + + | AMORPHOUS | 1+Comment: Testing | | EXTERNAL | | | CRYSTAL | performed at [facility] | | LAB | | | | [address];[place], [place] | | | | | | [address] | | | | + + + + + + + + | Specimen | + + | | + + + +---------+ + + | Performing | Address | City/State/Zipcode | Phone Number | | Organization | | | | + +---------+ + + | EXTERNAL LAB | | | | + +---------+ + + POC Glucose (07/24/2017 9:35 PM PST) + + + + + + | Component | Value | Ref Range | Performed | Pathologist | | | | | At | Signature | + + + + + + | Glucose, | 195 (H)Comment: Testing | 65 - 99 mg/dL | EXTERNAL | | | Fingerstick | performed at [facility];[address] | | LAB | | | | [address];[place] | | | | | | [address] | | | | + + + + + + + + | Specimen | + + | | + + + +---------+ + + | Performing | Address | City/State/Zipcode | Phone Number | | Organization | | | | + +---------+ + + | EXTERNAL LAB | | | | + +---------+ + + POC Glucose (07/24/2017 4:01 PM PST) + + + + + + | Component | Value | Ref Range | Performed | Pathologist | | | | | At | Signature | + + + + + + | Glucose, | 164 (H)Comment: Testing | 65 - 99 mg/dL | EXTERNAL | | | Fingerstick | performed at [facility];[address] | | LAB | | | | [address];[place] | | | | | | [address] | | | | + + + + + + + + | Specimen | + + | | + + + +---------+ + + | Performing | Address | City/State/Zipcode | Phone Number | | Organization | | | | + +---------+ + + | EXTERNAL LAB | | | | + +---------+ + + POC Glucose (07/24/2017 11:28 AM PST) + + + + + + | Component | Value | Ref Range | Performed | Pathologist | | | | | At | Signature | + + + + + + | Glucose, | 176 (H)Comment: Testing | 65 - 99 mg/dL | EXTERNAL | | | Fingerstick | performed at [facility];[address] | | LAB | | | | [address];[place] | | | | | | [address] | | | | + + + + + + + + | Specimen | + + | | + + + +---------+ + + | Performing | Address | City/State/Zipcode | Phone Number | | Organization | | | | + +---------+ + + | EXTERNAL LAB | | | | + +---------+ + + POC Glucose (07/24/2017 5:18 AM PST) + + + + + + | Component | Value | Ref Range | Performed | Pathologist | | | | | At | Signature | + + + + + + | Glucose, | 100 (H)Comment: Testing | 65 - 99 mg/dL | EXTERNAL | | | Fingerstick | performed at [facility];[address] | | LAB | | | | [place] [place] | | | | | | [address] | | | | + + + + + + + + | Specimen | + + | | + + + +---------+ + + | Performing | Address | City/State/Zipcode | Phone Number | | Organization | | | | + +---------+ + + | EXTERNAL LAB | | | | + +---------+ + + External Lab: CBC (07/24/2017 4:30 AM PST) + + + + + + | Component | Value | Ref Range | Performed | Pathologist | | | | | At | Signature | + + + + + + | WBC | 6.45 | 3.80 - 11.00 | EXTERNAL | | | | | K/uL | LAB | | + + + + + + | Non- | 4.20 | 4.20 - 5.70 | EXTERNAL | | | Red Blood | | M/uL | LAB | | | Cells | | | | | | Counted | | | | | + + + + + + | Hemoglobin | 12.7 (L) | 13.2 - 17.0 | EXTERNAL | | | | | g/dL | LAB | | + + + + + + | Hematocrit, | 37.0 (L) | 39.0 - 50.0 % | EXTERNAL | | | POC | | | LAB | | + + + + + + | MCV | 88.2 | 80.0 - 100.0 fl | EXTERNAL | | | | | | LAB | | + + + + + + | MCH | 30.2 | 27.0 - 34.0 pg | EXTERNAL | | | | | | LAB | | + + + + + + | MCHC | 34.3 | 32.0 - 35.5 | EXTERNAL | | | | | g/dL | LAB | | + + + + + + | RDW-CV | 54.7 (H) | 37 - 53 [...] | MPV | 7.1 | fl | EXTERNAL | | | | | | LAB | | + + + + + + | Differentia | AUTOMATED | | EXTERNAL | | | l Type | | | LAB | | + + + + + + | % Segmented | 66.67 | % | EXTERNAL | | | | | | LAB | | | Neutrophils | | | | | + + + + + + | % | 11.35 | % | EXTERNAL | | | Lymphocytes | | | LAB | | + + + + + + | % Monocytes | 10.22 | % | EXTERNAL | | | | | | LAB | | + + + + + + | % | 10.73 | % | EXTERNAL | | | Eosinophils | | | LAB | | + + + + + + | % Basophils | 1.03 | % | EXTERNAL | | | | | | LAB | | + + + + + + | Absolute | 4.30 | 1.90 - 7.40 | EXTERNAL | | | Segmented | | K/uL | LAB | | | Neutrophils | | | | | + + + + + + | Absolute | 0.73 (L) | 1.00 - 3.90 | EXTERNAL | | | Lymphocytes | | K/uL | LAB | | + + + + + + | Absolute | 0.66 | 0.00 - 0.80 | EXTERNAL | | | Monocytes | | K/uL | LAB | | + + + + + + | Absolute | 0.69 (H) | 0.00 - 0.50 | EXTERNAL | | | Eosinophils | | K/uL | LAB | | + + + + + + | Absolute | 0.07Comment: Testing | 0.00 - 0.10 | EXTERNAL | | | Basophils | performed at [facility], [address] | K/uL | LAB | | | | [address], | | | | | | [place] [address] | | | | + + + + + + + + | Specimen | + + | Blood specimen | | (specimen) | + + + +---------+ + + | Performing | Address | City/State/Zipcode | Phone Number | | Organization | | | | + +---------+ + + | EXTERNAL LAB | | | | + +---------+ + + Magnesium (07/24/2017 4:30 AM PST) + + + + + + | Component | Value | Ref Range | Performed | Pathologist | | | | | At | Signature | + + + + + + | Magnesium | 2.4Comment: Testing | 1.7 - 2.4 mg/dL | EXTERNAL | | | | performed at [facility], [address] | | LAB | | | | [address], | | | | | | [place] [address] | | | | + + + [...] + +---------+ + + Renal Function Panel (07/24/2017 4:30 AM PST) + + + + + + | Component | Value | Ref Range | Performed | Pathologist | | | | | At | Signature | + + + + + + | Na | 136 | 135 - 145 | EXTERNAL | | | | | mmol/L | LAB | | + + + + + + | K | 3.8 | 3.5 - 4.9 | EXTERNAL | [...] + + + | BUN | 41 (H) | 8 - 25 mg/dL | EXTERNAL | | | | | | LAB | | + + + + + + | Creatinine | 7.4 (H) | 0.70 - 1.30 | EXTERNAL | | | | | mg/dL | LAB | | + + + + + + | Calcium | 6.6 (L) | 8.5 - 10.5 | EXTERNAL | | | | | mg/dL | LAB | | + + + + + + | Albumin | 3.1 (L) | 3.6 - 5.0 g/dL | EXTERNAL | | | | | | LAB | | + + + + + + | PHOSPHORUS | 5.4 (H) | 2.3 - 4.8 mg/dL | EXTERNAL [...] | | | | | [facility], | | | | | | [place] [address] | | | | + + + + + + + + | Specimen | + + | | + + + +---------+ + + | Performing | Address | City/State/Zipcode | Phone Number | | Organization | | | | + +---------+ + + | EXTERNAL LAB | | | | + +---------+ + + POC Glucose (07/23/2017 9:31 PM PST) + + + + + + | Component | Value | Ref Range | Performed | Pathologist | | | | | At | Signature | + + + + + + | Glucose, | 136 (H)Comment: Testing | 65 - 99 mg/dL | EXTERNAL | | | Fingerstick | performed at [facility];[address] | | LAB | | | | [place] [address];[place] | | | | | | [address] | | | | + + + + + + + + | Specimen | + + | | + + + +---------+ + + | Performing | Address | City/State/Zipcode | Phone Number | | Organization | | | | + +---------+ + + | EXTERNAL LAB | | | | + +---------+ + + POC Glucose (07/23/2017 4:24 PM PST) + + + + + + | Component | Value | Ref Range | Performed | Pathologist | | | | | At | Signature | + + + + + + | Glucose, | 111 (H)Comment: Testing | 65 - 99 mg/dL | EXTERNAL | | | Fingerstick | performed at [facility];[address] | | LAB | | | | [address];[place], [place] | | | | | | [address] | | | | + + + + + + + + | Specimen | + + | | + + + +---------+ + + | Performing | Address | City/State/Zipcode | Phone Number | | Organization | | | | + +---------+ + + | EXTERNAL LAB | | | | + +---------+ + + Hepatitis Panel, Chronic (07/23/2017 10:32 AM PST) + + + + + + | Component | Value | Ref Range | Performed | Pathologist | | | | | At | Signature | + + + + + + | Hep A Total | REACTIVE (A) | | EXTERNAL | | | Ab Interp | | | LAB | | + + + + + + | HEP B | NON REACTIVE | | EXTERNAL | | | SURFACE | | | LAB | | | ANTIBODY | | | | | + + + + + + | Hepatitis B | NON REACTIVE | | EXTERNAL | | | Core Ab | | | LAB | | | Total | | | | | + + + + + + | HEP B | >24.00 (H)Comment: <1.00 | IV | EXTERNAL | | | SURFACE | Non | | LAB | | | ANTIBODY | Immune1.00 OR MORE | | | | | | Indicates vaccine | | | | | | response or response to | | | | | | HBV infection. An Index | | | | | | Value (IV) of 1.00 is | | | | | | equivalent to 10 mIU/mL. | | | | | | Samples with an IV of | | | | | | 1.00 or greater are | | | | | | considered reactive | | | | | | (protected) in | | | | | | accordance with CDC | | | | | | Guidelines. | | | | + + + + + + | HCV Ab | NON REACTIVE | | EXTERNAL | | | | | | LAB | | + + + + + + | Hepatitis | Current or past HAV | | EXTERNAL | | | Interpretat | infection. Past HBV | | LAB | | | ion | infection or | | | | | | vaccination. No | | | | | | serologic evidence of | | | | | | HCV infection.Comment: | | | | | | Testing performed at | | | | | | [facility], [address] | | | | | | [place] | | | | | | [address] | | | | + + + + + + + + | Specimen | + + | | + + + +---------+ + + | Performing | Address | City/State/Zipcode | Phone Number | | Organization | | | | + +---------+ + + | EXTERNAL LAB | | | | + +---------+ + + POC Glucose (07/23/2017 5:42 AM PST) + + + + + + | Component | Value | Ref Range | Performed | Pathologist | | | | | At | Signature | + + + + + + | Glucose, | 138 (H)Comment: Testing | 65 - 99 mg/dL | EXTERNAL | | | Fingerstick | performed at [facility];[address] | | LAB | | | | [place] | | | | | | [address] | | | | + + + + + + + + | Specimen | + + | | + + + +---------+ + + | Performing | Address | City/State/Zipcode | Phone Number | | Organization | | | | + +---------+ + + | EXTERNAL LAB | | | | + +---------+ + + External Lab: CBC (07/23/2017 5:01 AM PST) + + + + + + | Component | Value | Ref Range | Performed | Pathologist | | | | | At | Signature | + + + + + + | WBC | 7.21 | 3.80 - 11.00 | EXTERNAL | | | | | K/uL | LAB | | + + + + + + | Non- | 4.23 | 4.20 - 5.70 | EXTERNAL | | | Red Blood | | M/uL | LAB | | | Cells | | | | | | Counted | | | | | + + + + + + | Hemoglobin | 12.8 (L) | 13.2 - 17.0 | EXTERNAL | | | | | g/dL | LAB | | + + + + + + | Hematocrit, | 37.9 (L) | 39.0 - 50.0 % | EXTERNAL | | | POC | | | LAB | | + + + + + + | MCV | 89.5 | 80.0 - 100.0 fl | EXTERNAL | | | | | | LAB | | + + + + + + | MCH | 30.2 | 27.0 - 34.0 pg | EXTERNAL | | | | | | LAB | | + + + + + + | MCHC | 33.7 | 32.0 - 35.5 | EXTERNAL | | | | | g/dL | LAB | | + + + + + + | RDW-CV | 56.0 (H) | 37 - 53 fl | EXTERNAL | | | | | | LAB | | + + + + + + | Platelet | 198 | 150 - 400 K/uL | EXTERNAL [...] + + + | % Segmented | 73.75 | % | EXTERNAL | | | | | | LAB | | | Neutrophils | | | | | + + + + + + | % | 10.04 | % | EXTERNAL | | | Lymphocytes | | | LAB | | + + + + + + | % Monocytes | 9.13 | % | EXTERNAL | | | | | | LAB | | + + + + + + | % | 5.94 | % | EXTERNAL | | | Eosinophils | | | LAB | | + + + + + + | % Basophils | 1.14 | % | EXTERNAL | | | | | | LAB | | + + + + + + | Absolute | 5.31 | 1.90 - 7.40 | EXTERNAL | | | Segmented | | K/uL | LAB | | | Neutrophils | | | | | + + + + + + | Absolute | 0.72 (L) | 1.00 - 3.90 | EXTERNAL | | | Lymphocytes | | K/uL | LAB | | + + + + + + | Absolute | 0.66 | 0.00 - 0.80 | EXTERNAL | | | Monocytes | | K/uL | LAB | | + + + + + + | Absolute | 0.43 | 0.00 - 0.50 | EXTERNAL | | | Eosinophils | | K/uL | LAB | | + + + + + + | Absolute | 0.08Comment: Testing | 0.00 - 0.10 | EXTERNAL | | | Basophils | performed at [facility], [address] | K/u[address] | LAB | | | | [place], | | | | | | [place] [address] | | | | + + + + + + + + | Specimen | + + | Blood specimen | | (specimen) | + + + +---------+ + + | Performing | Address | City/State/Zipcode | Phone Number | | Organization | | | | + +---------+ + + | EXTERNAL LAB | | | | + +---------+ + + Magnesium (07/23/2017 5:01 AM PST) + + + + + + | Component | Value | Ref Range | Performed | Pathologist | | | | | At | Signature | + + + + + + | Magnesium | 3.1 (H)Comment: Testing | 1.7 - 2.4 mg/dL | EXTERNAL | | | | performed at [facility], [address] | | LAB | | | | [address], | | | | | | [place] [address] | | | | + + + [...] + +---------+ + + Renal Function Panel (07/23/2017 5:01 AM PST) + + + + + + | Component | Value | Ref Range | Performed | Pathologist | | | | | At | Signature | + + + + + + | Na | 130 (L) | 135 - 145 | EXTERNAL | | | | | mmol/L | LAB | | + + + + + + | K | 3.8 | 3.5 - 4.9 | EXTERNAL | | | | | mmol/L | LAB | | + + + + + + | Cl | 99 | 99 - 109 mmol/L | EXTERNAL | | | | | | LAB | | + + + + + + | CO2 | 9 (LL)Comment: RESULT | 23 - 32 mmol/L | EXTERNAL | | | | READ BACK BY: TRIP Tan @ | | LAB | | | | 7RP 6:57 18 DH | | | | | | TRIP Tan @ 7RP 6:57 18 DH | | | | | | | | | | + + + + + + | Anion Gap | 26 (H) | 5 - 20 mmol/L | EXTERNAL | | | | | | LAB | | + + + + + + | Glucose, | 147 (H) | 65 - 99 mg/dL | EXTERNAL | | | Fasting | | | LAB | | + + + + + + | BUN | 96 (H) | 8 - 25 mg/dL | EXTERNAL | | | | | | LAB | | + + + + + + | Creatinine | 12.7 (H) | 0.70 - 1.30 | EXTERNAL | | | | | mg/dL | LAB | | + + + + + + | Calcium | 7.1 (L) | 8.5 - 10.5 | EXTERNAL | | | | | mg/dL | LAB | | + + + + + + | Albumin | 3.5 (L) | 3.6 - 5.0 g/dL | EXTERNAL | | | | | | LAB | | + + + + + + | PHOSPHORUS | 9.3 (HH)Comment: RESULT | 2.3 - 4.8 mg/dL | EXTERNAL | | | | READ BACK BY: TRIP Dean | | LAB | | | | 7RP 6:57 07/23/17 DH | | | | | | TRIP Dean 7RP 6:57 07/23/17 DH | | | | | | | | | | + + + + + + | Estimated | 4 (L)Comment: GFR <60: [...] [address] | | | | | | [place], | | | | | | [place] [address] | | | | + + + + + + + + | Specimen | + + | | + + + +---------+ + + | Performing | Address | City/State/Zipcode | Phone Number | | Organization | | | | + +---------+ + + | EXTERNAL LAB | | | | + +---------+ + + POC Glucose (07/22/2017 10:00 PM PST) + + + + + + | Component | Value | Ref Range | Performed | Pathologist | | | | | At | Signature | + + + + + + | Glucose, | 159 (H)Comment: Testing | 65 - 99 mg/dL | EXTERNAL | | | Fingerstick | performed at [facility];[address] | | LAB | | | | [place] | | | | | | [address] | | | | + + + + + + + + | Specimen | + + | | + + + +---------+ + + | Performing | Address | City/State/Zipcode | Phone Number | | Organization | | | | + +---------+ + + | EXTERNAL LAB | | | | + +---------+ + + US Extremity Nonvascular Limited Right (07/22/2017 9:44 PM PST) + + | Specimen | + + | | + + + + + | Impressions | Performed At | + + + | 1. Mild edema surrounding the ectatic fistula/graft | | | | | + + + + + + | Narrative | Performed At | + + + | HISTORY: 52-year-old male, fluid collection suspected along fistula, | | | placement 2 years ago TECHNIQUE: 1. Sonographic evaluation of | | | the superficial tissues localizing to the right sided fistula, aVF. | | | Not a interrogation of the fistula itself for patency although chronic | | | color-flow interrogation was performed Prior study for review : | | | None similar FINDINGS: The fistula itself is interrogated and | | | there is mild edema around it, but no organized collection | | + + + + -------+ | Procedure Note | + -------+ | Néstor, Rad Conversion - 02/04/2019 8:18 AM PDT HISTORY: 52-year-old male, fluid | | collection suspected along fistula, placement 2 years ago TECHNIQUE: 1. Sonographic | | evaluation of the superficial tissues localizing to the right sided fistula, aVF.Not a | | interrogation of the fistula itself for patency although chronic color-flow | | interrogation was performed Prior study for review : None similar FINDINGS: The fistula | | itself is interrogated and there is mild edema around it, but no organized collection | | IMPRESSION: 1. Mild edema surrounding the ectatic fistula/graft | | | |FINDINGS: | | | |The fistula itself is interrogated and there is mild edema around it, but no organized grace ection | | | |IMPRESSION: | | | |1. Mild edema surrounding the ectatic fistula/graft | | | | | | | | | + -------+ Culture, Blood, 2nd Specimen (07/22/2017 9:26 PM PST) + + | Specimen | + + | Blood specimen | | (specimen) | + + + + + | Narrative | Performed At | + + + | Specimen Description BLOOD SPECIAL | EXTERNAL LAB | | REQUESTS LAC CULTURE | | | NO GROWTH 6 DAYS | | + + + + +---------+ + + | Performing | Address | City/State/Zipcode | Phone Number | | Organization | | | | + +---------+ + + | EXTERNAL LAB | | | | + +---------+ + + MRSA NAAT (07/22/2017 9:22 PM PST) + + | Specimen | + + | | + + + + + | Narrative | Performed At | + + + | SOURCE NARES(NOSE) MRSA | EXTERNAL LAB | | PCR POSITIVE for MRSA by | | | PCRAbnormal Testing performed at [facility];[address] [place] [address];[place] [address] | | + + + + +---------+ + + | Performing | Address | City/State/Zipcode | Phone Number | | Organization | | | | + +---------+ + + | EXTERNAL LAB | | | | + +---------+ + + Culture, Blood (07/22/2017 3:05 PM PST) + + | Specimen | + + | Blood specimen | | (specimen) | + + + + + | Narrative | Performed At | + + + | Specimen Description BLOOD, PERIPHERAL DRAW | EXTERNAL LAB | | SPECIAL REQUESTS LAC CULTURE | | | NO GROWTH 6 DAYS | | + + + + +---------+ + + | Performing | Address | City/State/Zipcode | Phone Number | | Organization | | | | + +---------+ + + | EXTERNAL LAB | | | | + +---------+ + + Sedimentation rate, automated (07/22/2017 2:40 PM PST) + + + + + + | Component | Value | Ref Range | Performed | Pathologist | | | | | At | Signature | + + + + + + | Sed Rate | 13Comment: Testing | 0 - 20 mm/Hr | EXTERNAL | | | | performed at [facility];[address] | | LAB | | | | [address];[place], [place] | | | | | | [address] | | | | + + + + + + + + | Specimen | + + | Blood specimen | | (specimen) | + + + +---------+ + + | Performing | Address | City/State/Zipcode | Phone Number | | Organization | | | | + +---------+ + + | EXTERNAL LAB | | | | + +---------+ + + C-Reactive Protein (07/22/2017 2:40 PM PST) + + + + + + | Component | Value | Ref Range | Performed | Pathologist | | | | | At | Signature | + + + + + + | CRP | 1.3 (H)Comment: Testing | mg/dL | EXTERNAL | | | | performed at [facility] | | LAB | | | | [place] | | | | | | [address] | | | | + + + [...] + +---------+ + + External Lab: CBC (07/22/2017 2:30 PM PST) + + + + + + | Component | Value | Ref Range | Performed | Pathologist | | | | | At | Signature | + + + + + + | WBC | 9.45 | 3.80 - 11.00 | EXTERNAL | | | | | K/uL | LAB | | + + + + + + | Non- | 4.22 | 4.20 - 5.70 | EXTERNAL | | | Red Blood | | M/uL | LAB | | | Cells | | | | | | Counted | | | | | + + + + + + | Hemoglobin | 12.4 (L) | 13.2 - 17.0 | EXTERNAL | | | | | g/dL | LAB | | + + + + + + | Hematocrit, | 37.7 (L) | 39.0 - 50.0 % | EXTERNAL | | | POC | | | LAB | | + + + + + + | MCV | 89.5 | 80.0 - 100.0 fl | EXTERNAL | | | | | | LAB | | + + + + + + | MCH | 29.3 | 27.0 - 34.0 pg | EXTERNAL | | | | | | LAB | | + + + + + + | MCHC | 32.8 | 32.0 - 35.5 | EXTERNAL | | | | | g/dL | LAB | | + + + + + + | RDW-CV | 55.6 (H) | 37 - 53 fl | EXTERNAL | | | | | | LAB | | + + + + + + | Platelet | 192 | 150 - 400 K/uL | EXTERNAL | | | Count | | | LAB | | | Plasma | | | | | + + + + + + | MPV | 6.5 | fl | EXTERNAL | | | | | | LAB | | + + + + + + | Differentia | AUTOMATED | | EXTERNAL | | | l Type | | | LAB | | + + + + + + | % Segmented | 82.56 | % | EXTERNAL | | | | | | LAB | | | Neutrophils | | | | | + + + + + + | % | 8.31 | % | EXTERNAL | | | Lymphocytes | | | LAB | | + + + + + + | % Monocytes | 7.15 | % | EXTERNAL | | | | | | LAB | | + + + + + + | % | 1.05 | % | EXTERNAL | | | Eosinophils | | | LAB | | + + + + + + | % Basophils | 0.93 | % | EXTERNAL | | | | | | LAB | | + + + + + + | Absolute | 7.81 (H) | 1.90 - 7.40 | EXTERNAL [...] + + + + | Absolute | 0.10 | 0.00 - 0.50 | EXTERNAL | | | Eosinophils | | K/uL | LAB | | + + + + + + | Absolute | 0.09Comment: Testing | 0.00 - 0.10 | EXTERNAL | | | Basophils | performed at [facility];[address] | K/uL | LAB | | | | [address];[place], [place] | | | | | | [address] | | | | + + + + + + + + | Specimen | + + | Blood specimen | | (specimen) | + + + +---------+ + + | Performing | Address | City/State/Zipcode | Phone Number | | Organization | | | | + +---------+ + + | EXTERNAL LAB | | | | + +---------+ + + Lactic Acid (07/22/2017 2:30 PM PST) + + + + + + | Component | Value | Ref Range | Performed | Pathologist | | | | | At | Signature | + + + + + + | Lactate | 1.0Comment: Testing | 0.4 - 2.0 | EXTERNAL | | | | performed at [facility];[address] | mmol/L | LAB | | | | [address] [facility];[place], [place] | | | | | | [address] | | | | + + + [...] + +---------+ + + Comprehensive Metabolic Panel (07/22/2017 2:30 PM PST) + + + + + + | Component | Value | Ref Range | Performed | Pathologist | | | | | At | Signature | + + + + + + | Na | 129 (L) | 135 - 145 | EXTERNAL | | | | | mmol/L | LAB | | + + + + + + | K | 3.9Comment: SLT | 3.5 - 4.9 | EXTERNAL | | | | HEMOLYSIS | mmol/L | LAB | | + + + + + + | Cl | 97 (L) | 99 - 109 mmol/L | EXTERNAL | | | | | | LAB | | + + + + + + | CO2 | 9 (LL)Comment: CALLED | 23 - 32 mmol/L | EXTERNAL | | | | NURSING UNITREAD BACK | | LAB | | | | RESULTS GISELLE Argueta IN | | | | | | WAITING ROOM AT 1511 BY | | | | | | CRK | | | | | | | | | | + + + + + + | Anion Gap | 30 (H) | 5 - 20 mmol/L | EXTERNAL | | | | | | LAB | | + + + + + + | Glucose, | 183 (H) | 65 - 99 mg/dL | EXTERNAL | | | Fasting | | | LAB | | + + + + + + | BUN | 90 (H) | 8 - 25 mg/dL | EXTERNAL | | | | | | LAB | | + + + + + + | Creatinine | 12 (H) | 0.70 - 1.30 | EXTERNAL | | | | | mg/dL | LAB | | + + + + + + | BUN/Creatin | 8 | | EXTERNAL | | | ine Ratio | | | LAB | | + + + + + + | Calcium | 7.1 (L) | 8.5 - 10.5 | EXTERNAL | | | | | mg/dL | LAB | | + + + + + + | Protein, | 7.5 | 6.3 - 8.2 g/dL | EXTERNAL | | | Total | | | LAB | | + + + + + + | Albumin | 3.6 | 3.6 - 5.0 g/dL | EXTERNAL | | | | | | LAB | | + + + + + + | Globulin | 3.9 | 1.3 - 4.9 g/dL | EXTERNAL | | | | | | LAB | | + + + + + + | A/G Ratio | 0.9 (L) | 1.0 - 2.4 | EXTERNAL | | | | | | LAB | | + + + + + + | Bilirubin | 0.6 | 0.1 - 1.5 mg/dL | EXTERNAL | | | Total | | | LAB | | + + + + + + | ALP, | 140 (H) | 35 - 115 U/L | EXTERNAL | | | External | | | LAB | | + + + + + + | AST | 48 (H)Comment: SLT | 10 - 45 U/L | EXTERNAL | | | | HEMOLYSIS | | LAB | | + + + + + + | ALT | 56 | 10 - 65 U/L | EXTERNAL | | | | | | LAB | | + + + + + + | Estimated | 5 (L)Comment: GFR <60: | mL/min/1.73m2 | EXTERNAL [...] | | | | | | at [facility];[address];[place] [address] | | | | + + + [...] + | Diagnosis | + + | MRSA infection Methicillin resistant Staphylococcus aureus in conditions classified | | elsewhere and of unspecified site | + + | Complication of AV dialysis fistula, initial encounter | + + | End stage renal failure on dialysis (HCC) End stage renal disease | + + | Infection of arteriovenous fistula, subsequent encounter | + + documented in this encounter [...]
--- OUTSIDE RECORDS SUMMARY | ~2019-12-30 | XMS | Encounter Summary ---
Demographics + + + | Address | [address] | | | [place] [address] | + + + | Home Phone | | + + + | Preferred Language | Unknown | + + + | Marital Status | Single | + + + | Quaker Affiliation | Unknown | + + + | Race | or | + + + | Ethnic Group | Not or | + + + Author + + + | Author | [facility] | + + + | Organization | [facility] [facility] | + + + | Address | Unknown | + + + | Phone | Unavailable | + + + Support + + +---------+ + | Name | Relationship | Address | Phone | + + +---------+ + | Cristel Tariq | ECON | Unknown | | + + +---------+ + | Momo leslie | ECON | Unknown | | + + +---------+ + Care Team Providers + +------+ + | Care Photonics Engineering Technician Name | Role | Phone | + +------+ + | Berenice Hicks | PCP | | + +------+ + Reason for Visit + + + | Reason | Comments | + + + | Evaluation of | | | response to | | | medications | | + + + Encounter Details +--------+ + + + + | Date | Type | Department | Care Team | Description | +--------+ + + + + | 12/15/ | Documentati | Kidney Transplant | Chirag Vogel, | Evaluation of | | 2020 | on | at Physician's | PharmD [address] | response to | | | | [address] | [facility] | medications | | | | [address] | [place] [address] | | | | | Physician's | [phone] | | | | | Pavilion, [facility] floor | | | | | | [place], [place] | | | | | | [address] | | | | | | [phone] | | | +--------+ + + + + Social History + + + +--------+ + | Tobacco Use | Types | Packs/Day | Years | Date | | | | | Used | | + + + +--------+ + | Former Smoker | Cigarettes | 1 | 23 | Quit: 04/28/2011 | + + + +--------+ + + +------+---+--------+ | Smokeless Tobacco: | Chew | | Quit: | | Former User | | | 1980 | + +------+---+--------+ + + +---------+ + | Alcohol Use | Drinks/Week | oz/Week | Comments | + + +---------+ + | Not Currently | | | Quit 22 years ago | + + +---------+ + + + [...]
--- OUTSIDE RECORDS SUMMARY | ~2019-12-30 | XMS | Encounter Summary ---
Demographics + + + | Address | [address] | | | [place] [address] | + + + | Home Phone | | + + + | Preferred Language | Unknown | + + + | Marital Status | Unknown | + + + | Confucianism Affiliation | [id number] | + + + [...] Team Providers + +------+ + | Care [employer] Trim [employer]rector Name | Role | Phone | + +------+ + | Andry Deng DO | PCP | | + +------+ + Encounter Details +--------+ + + + + | Date | Type | Department | Care Team | Description | +--------+ + + + + | 05/17/ | Orders Only | [facility] | Conversion | | | 2013 | | INFECTIOUS DISEASE | Transaction, | | | | | [address] | Provider Unknown | | | | | [place], [place] | [phone] | | | | | [phone] | (Fax) | | | | | [phone] | | | +--------+ + + + [...] | CBC WITH MANUAL | Routin | 05/17/2014 | | Results for this | | DIFFERENTIAL | e | 12:00 AM | | procedure are in the | | | | PST | | results section. | + +--------+ + + + | SEDIMENTATION RATE, | Routin | 05/17/2014 | | Results for this | | AUTOMATED | e | 12:00 AM | | procedure are in the | | | | PST | | results section. | + +--------+ + + + | C-REACTIVE PROTEIN | Routin | 05/17/2014 | | Results for this | | | e | 12:00 AM | | procedure are in the | | | | PST | | results section. | + +--------+ + + + documented in this encounter Results Sedimentation rate, automated (05/17/2014 12:00 AM PST) + +-------+ + + + | Component | Value | Ref Range | Performed | Pathologist | | | | | At | Signature | + +-------+ + + + | Sed Rate | 8 | | EXTERNAL | | | | [...] +---------+ + + CBC with Manual Differential (05/17/2014 12:00 AM PST) + +-------+ + + + | Component | Value | Ref Range | Performed | Pathologist | | | | | At | Signature | + +-------+ + + + | WBC | 7.7 | 10 | EXTERNAL | | | | | | LAB | | + +-------+ + + + | Non- | 3.92 | 10 | EXTERNAL | | | Red Blood | | | LAB | | | Cells | | | | | | Counted | | | | | + +-------+ + + + | Hemoglobin | 11.7 | g/dL | EXTERNAL | | | | | | LAB | | + +-------+ + + + | Hematocrit, | 35.4 | % | EXTERNAL | | | POC | | | LAB | | + +-------+ + + + | MCV | 90.3 | fL | EXTERNAL | | | [...] +-------+ + + + | RDW-CV | 16.8 | % | EXTERNAL | | | | | | LAB | | + +-------+ + + + | Platelet | 213 | K/ L | EXTERNAL | | | Count | | | LAB | | | Plasma | | | | | + +-------+ + + + | MPV | | fL | EXTERNAL | | | | | | LAB | | + +-------+ + + + | % Segmented | 63.9 | % | EXTERNAL | | | | | | LAB | | | Neutrophils | | | | | + +-------+ + + + | % | 24.0 | % | EXTERNAL | | | Lymphocytes | | | LAB | | + +-------+ + + + | % Monocytes | 11.0 | % | EXTERNAL | | | | | | LAB | | + +-------+ + + + | % | 0.4 | % | EXTERNAL | | | Eosinophils | | | LAB | | + +-------+ + + + | % Basophils | 0.7 | % | EXTERNAL | | | [...] | + +---------+ + + C-Reactive Protein (05/17/2014 12:00 AM PST) + + + + [...]
--- OUTSIDE RECORDS SUMMARY | ~2019-12-30 | XMS | Encounter Summary ---
Demographics + + + | Address | [address] | | | [place] [address] | + + + | Home Phone | | + + + | Preferred Language | Unknown | + + + | Marital Status | Unknown | + + + | Bahai Affiliation | [id number] | + + + | Race | Unknown | + + + | Ethnic Group | Unknown | + + + Author + + + | Author | [facility] | | | and [place] | + + + | Organization | [facility] | | [...] Team Providers + +------+ + | Care Dye Range Feeder Name | Role | Phone | + +------+ + PCP | Unavailable | + +------+ + Encounter Details +--------+ + + + + | Date | Type | Department | Care Team | Description | +--------+ + + + + | 09/07/ | Hospital | [facility] | Artis Dean MD | ESRD (end stage | | 2017 - | Encounter | [facility] | [address] [place] | renal disease) on | | | | CARE FLOOR 4 [address] | [address] [place], [place] | dialysis ([facility]); S/P | | 09/15/ | | [address] | [address] | pericardiocentesis; | | 2017 | | [place], [place] | | Hyperkalemia; | | | | [address] | | End-stage renal | | | | [phone] | | disease (ESRD) | | | | | | ([facility]); Arteriovenous | | | | | | fistula occlusion, | | | | | | initial encounter | | | | | | ([facility]); Anemia, | | | | | | [...] 09/15/2016 3:04 PM PDT Discharge Summaries by ESPERANZA Ku at 09/15/16 1509 Author: ESPERANZA Ku Service: Hospitalist Author Type: Resident-Y1 Filed: 09/15/16 151 Date of Service: 09/15/16 1508 Status: Attested Sofa Cover Inspector: ESPERANZA Ku (Resident-Y1) Cosigner: Simone Roblero MD at 09/17/16 1 338 Attestation signed by Simone Roblero MD at 09/17/16 6375 I have seen and examined the patient and agree with residents note [facility] Service: Hospitalist Discharge Summary Date of Admission: 09/07/2016 Date of Discharge: Discharge Provider: ESPERANZA Ku/Dr. Roblero Treatment Team: Consulting Physician: Cosmo Soria [...] Problems: Acute hyperkalemia Dialysis AV fistula malfunction (HCC) BRIEF HISTORY OF PRESENTATION and HOSPITAL COURSE: This is a 51 y/o male with a h/o ESRD requiring HD, DM II, and hypothyroidism who pres ented to [facility] with hyperkalemia 2/2 missing dialysis appointments as [...] on file. Follow [place]: [place] [address] [place] [address] Go on 09/18/2016 Hospital Follow Up at 2:15pm Guided Patient Services Guided Patient Services GPS Access Analyst- HARDIK Ayala [phone] Mon-Sat 7:30 AM 4:00 PM Call for any questions or concerns after your discharge home, or for help making follow up appointments. Beny Posada MD [address] [place] [address] [place] [address] In 2 weeks for hospital follow up [...] a small amount | | 0 | 20 | | | (XYLOCAINE JELLY) 2% | to affected area | | | 12 | | | jelly | | | | | | + + + +---------+ + + | metformin | Take 2-1/2 tablets | | 0 | /20 | | | (GLUCOPHAGE) 1000 MG | [...] Date of Service: 09/15/16 1516 Status: Signed Sofa Cover Inspector: Ophelia See RN (Registered Nurse) Patient leaving [...] Service: Nephrology Author Type: Physician Filed: 09/21/16 9707 Date of Service: 09/15/16 1110 Status: Signed Sofa Cover Inspector: Juana Christianson MD (Physician) [facility] Service: Nephrology Progress Note Hospital Problem [...] torsemide 50 mg Oral Daily vitamin B vuuluvc-A-iliha acid 1 tablet Oral Daily dextrose P.E. [...] with his AV fistula Recommendations: No acute FERMENTOLOGIST indication Remove CVC Protein suppl stressed I discussed with the primary team the case at the time of this encounter. JUANA CHRISTIANSON MD 09/15/2016 onversion Transa ction, Provider Unknown - 09/15/2016 4:18 AM PDT Nurse Progress Note by Yessica Bell RN at 09/15/16417 Author: Yessica Bell RN Service: (none) Author Type: Registered Nurse Filed: 09/15/16420 Date of Service: 09/15/16417 Status: Signed Sofa Cover Inspector: Yessica Bell RN (Registered Nurse) Patient came [...] oxycodone relieved pain. Will continue to monitor. Tash 24 hour chart check complete onver quique Transaction, Provider Unknown - 09/14/2016 6:53 PM PDT Nurse Progress Note by Ophelia See RN at 09/14/161852 Author: Ophelia See RN Service: (none) Author Type: Registered Nurse Filed: 09/14/161855 Date of Service: 09/14/161852 Status: Signed Sofa Cover Inspector: Ophelia See RN (Registered Nurse) Patient has [...] PDT Progress Notes by Marge Lewis RD, CD at 09/14/161700 Author: Marge Lewis RD, CD Service: (none) Author Type: Registered Dietitian Filed: 09/14/161701 Date of Service: 09/14/161700 Status: Signed Sofa Cover Inspector: Marge Lewis RD, CD (Registered Dietitian) 09/14/16 3120 Subjective Timepoint Admit Pt c/o Pt triggered for stay secondary to LOS. Admitted secondary to swollen fistula, no H D for five days. New fistula placed, pt sleeping and undergoing HD at time of visit. Did n ot awaken patient. Reported by RN Diet Experience Previous Diet / Nutrition Education / Counseling Pt receives HD in [facility], followed by belen chicas dietitian there. Food [...] Service: (none) Author Type: Registered Nurse Filed: 09/14/16 170 Date of Service: 09/14/161658 Status: Signed Sofa Cover Inspector: Lola Farfan RN (Registered Nurse) Discharge Planning: CM attended morning rounds with nursing staff, pt to d/c home with spou se, does not qualify for , pt not home bound Sean, Juana Smallwood MD - 09/14/2016 8:48 AM PDTFormatting of this note might be different from th e original. Progress Notes by Juana Christianson MD at 09/14/16847 Author: Juana Christianson MD Service: Nephrology Author Type: Physician Filed: 09/14/162050 Date of Service: 09/14/16847 Status: Signed Sofa Cover Inspector: Juana Christianson MD (Physician) [facility] Service: Nephrology Progress Note Hospital Problem [...] torsemide 50 mg Oral Daily vitamin B nilykzf-Z-esptr acid 1 tablet Oral Daily dextrose P.E. [...] STATUS: Relative euvolemia Recommendations: 1. He needs FERMENTOLOGIST today 2. No IVF need 3. Advise [...] 1540 Date of Service: 09/14/16626 Status: Attested Sofa Cover Inspector: Douglas Barrow MD-R1 (Resident-Y1) Cosigner: Simone Roblero MD at 09/15/16 1 424 Attestation signed by Simone Roblero MD at 09/15/16 7752 I have seen and examined the patient and agree with residents of note. Pericardial drain is out. HD was performed using fistula. No complication PROGRESS NOTE 09/14/2016 for Carolelida Potter on the hospitalist service. 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 There was concern that he had central occlusion of the SVC, which did not boat outfitter to be the case. Patient underwen t [...] DM II, and hypothyroidism who presented to [facility] with hyperkalemia 2/2 missing dialysis appointments as [...] torsemide 50 mg Oral Daily vitamin B ejrqzmb-R-gqydh acid 1 tablet Oral Daily dextrose PRN: [...] by Ksenia Lopez RN at 09/13/162326 Author: Kesnia Lopez RN Service: (none) Author Type: Registered Nurse Filed: 09/13/162329 Date of Service: 09/13/162326 Status: Signed Sofa Cover Inspector: Ksenia Lopez RN (Registered Nurse) Both peripheral [...] 09/13/161929 Date of Service: 09/13/161753 Status: Addendum Sofa Cover Inspector: Flory Razo MD (Physician) Related Notes: Original Note by Flory Razo MD (Physician) filed at 09/13/161803 [facility] Service: Cardiology Progress Note Hospital Day: LOS: [...] torsemide 50 mg Oral Daily vitamin B qxxrqvf-R-ikrfc acid 1 tablet Oral Daily Continuous Infusions [...] (37.1 C)] 98.8 F (37.1 C) (09/13 1525) BP: (99-125)/(56-60) 99/60 mmHg (09/13 1525) Heart Rate: [77-91] 91 (09/13 1525) Resp: [18] 18 (09/13 1525) SpO2: [92 %-97 %] 96 % (09/13 1525) Weight: [88 kg (194 lb 0.1 oz)] 88 kg (194 lb 0.1 oz) (09/13 340) Patient Vitals for the past 24 hrs: [...] Status: Full Code Flory Razo MD 09/13/2016 Alexander Lang MD - 09/13/2016 2:52 PM PDT . Progress Notes by Cosmo Soria MD at 09/13/16 6646 Author: Cosmo Soria MD Service: Nephrology Author Type: Physician Filed: 09/13/16 6547 Date of Service: 09/13/161451 Status: Signed Sofa Cover Inspector: Cosmo Soria MD (Physician) [id number] LOS: 6 [...] having had some urine output today. Dr. eMyer was apparently contacted by Dr. Mejia and [...] procedure done with Dr. Garnica yesterday with hemoperi cardium. 09/13/2016 He feels good today. He denied [...] is dialyzed Saturday an d Saturday at [facility] dialysis unit using right UE AVF (Dr. [...] was completed later after rounds. Dictation software, TrabajoPanel, was used which may contain error for [...] torsemide 50 mg Oral Daily vitamin B ctjtnaa-B-sclrw acid [address] Christianson will assume nephrology service as of 8 am tomorrow. onversion Transactio n, Provider Unknown - 09/13/2016 1:43 PM PDT Case Management by Lola Farfan RN at 09/13/16 1343 Author: Lola Farfan RN Service: (none) Author Type: Registered Nurse Filed: 09/13/16 1347 Date of Service: 09/13/16 134 Status: Signed Sofa Cover Inspector: Lola Farfan RN (Registered Nurse) Discharge Planning: CM attended morning rounds with nursing staff, pt to d/c poss 09/15 home with spouse. CM sent FWW script to DME, FWW to be delivered to pt room 09/14. alvobelen Douglas sifuentes - 09/13/2016 6:35 AM PDTFormatting of this note might be different from the betina dasia. Progress Notes by Douglas Barrow MD-R1 at 09/13/16 3835 Author: Douglas Barrow MD-R1 Service: Hospitalist Author Type: Resident-Y1 Filed: 09/13/16 0075 Date of Service: 09/13/16 2763 Status: Attested Sofa Cover Inspector: Douglas Barrow MD-R1 (Resident-Y1) Cosigner: Simone Roblero MD at 09/13/16 1 337 Attestation signed by Simone Roblero MD at 09/13/16 5050 I have seen and examined the patient and agree with residents note Will switch to oral pain meds as patient gets very somnolent Still has pericardial drain which has bloody output. PROGRESS NOTE 09/13/2016 for Carol Fuller Tariq on the hospitalist service. ASSESSMENT & PLAN Hyperkalemia Resolved - HD MWF - Appreciate Nephrology recommendations. 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 There was concern that he had central occlusion of the SVC, which did not boat outfitter to be the case. Patient underwen t [...] DM II, and hypothyroidism who presented to [facility] with hyperkalemia 2/2 missing dialysis appointments as [...] 88 kg (194 lb 0.1 oz) (09/13 034) Physical Exam Constitutional: He is oriented to [...] torsemide 50 mg Oral Daily vitamin B ockxtmx-V-dcbpa acid 1 tablet Oral Daily PRN: acetaminophen [...] Service: (none) Author Type: Registered Nurse Filed: 09/13/1638 Date of Service: 09/13/16517 Status: Addendum Sofa Cover Inspector: Ofelia Morales RN (Registered Nurse) Related Notes: Original Note by Ofelia Morales RN (Registered Nurse) filed at 09/13/16 24 No acute events overnight. RUE fistula [...] Service: Cardiology Author Type: Physician Filed: 09/12/16 5415 Date of Service: 09/12/160 Status: Signed Sofa Cover Inspector: Flory Razo MD (Physician) [facility] Service: Cardiology Progress Note Hospital Day: LOS: [...] Oral Nightly sevelamer 2,400 mg Oral TID sodium bicarbonate 1,300 mg Oral BID sodium chloride 10 mL Intravenous Q8H sodium chloride 10 mL Intravenous 2 times per day sodium citrate anticoagulant 4 % 6 mL Intracatheter Once per day on Sat torsemide 50 mg Oral Daily vitamin B iwmpfde-O-wdlkq acid 1 tablet Oral Daily Continuous Infusions [...] (37.8 C)] 98.2 F (36.8 C) (09/12 1128) BP: (81-181)/(49-95) 147/69 mmHg (09/12 1145) Heart Rate: [52-103] 84 (09/12 1145) Resp: [12-18] 18 (09/12 1128) SpO2: [91 %-100 %] [...] C) Oral 103 18 95 % - 09/11/165 167/74 mmHg - - - - - - 09/11/16 2315 150/69 mmHg - - - - - - 09/11/16 2300 157/71 mmHg - - - - - - 09/11/16 2251 150/67 mmHg - - 86 16 97 % - 09/11/164 - 98.4 F (36.9 C) Oral 86 18 91 % - 09/11/162229 (!) 146/95 mmHg - - - - - - 09/11/16 2200 156/70 mmHg - - - - - - 09/11/16 2130 163/78 mmHg - - - - - - 09/11/16 2100 161/77 mmHg - - - - - [...] Service: Nephrology Author Type: Physician Filed: 09/12/16 6802 Date of Service: 09/12/16 09 Status: Signed Sofa Cover Inspector: Comso Soria MD (Physician) [id number] LOS: 5 days Carol Potter is a 51 y.o. man whose PCP is Dr. ANDRY LOFTON. He is known to have ESRD as per PM> He had been having issues with his [...] is dialyzed Saturday an d Saturday at [facility] dialysis unit using right UE AVF (Dr. [...] was completed later after rounds. Dictation software, TrabajoPanel, was used which may contain error for [...] torsemide 50 mg Oral Daily vitamin B fixeafa-G-zxmzy acid 1 tablet Oral Daily Douglas Bess - 0 09/12/2016 6:42 AM PDT Progress Notes by Douglas Barrow MD-R1 at 09/12/16 0642 Author: Douglas Barrow MD-R1 Service: Hospitalist Author Type: Resident-Y1 Filed: 09/12/16 1217 Date of Service: 09/12/1642 Status: Attested Sofa Cover Inspector: Douglas Barrow MD-R1 (Resident-Y1) Cosigner: Simone Roblero [...] DM II, and hypothyroidism who presented to [facility] with hyperkalemia 2/2 missing dialysis appointments as [...] torsemide 50 mg Oral Daily vitamin B jwjcmex-T-bjuhz acid 1 tablet Oral Daily PRN: acetaminophen OR acetaminophen, albumin human, diphenhydrAMINE, HYDROmorphone OR HY DROmorphone, ondansetron OR ondansetron, polyethylene glycol, sodium chloride, sodium ch loride, sodium chloride Douglas Barrow MD PGY1 09/12/2016 12:17 PM Ana Strange DO, have reviewed this note. 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 He has been wheezing which is improved and denied fever, chills, chest pain, cough. PMH, PSH, Social history, medications, allergies, labs and imaging reviewed as appropriate. Previous history summarized as above. Prior lab data and imaging reviewed. Old records and labs were reviewed and summarized as above. Significant medical/surgical history: ESRD secondary to Biopsy-proven Diabetic nephropathy. He is dialyzed Saturday an saturday at [facility] dialysis unit using right UE AVF (Dr. [...] was completed later after rounds. Dictation software, TrabajoPanel, was used which may contain error for [...] torsemide 50 mg Oral Daily vitamin B rapeott-A-ulxtn acid 1 tablet Oral Daily onversion Transactio n, Provider Unknown - 09/11/2016 2:43 PM PDT Case Management by Deidre Westfall RN at 09/11/16 7002 Author: Deidre Westfall RN Service: (none) Author Type: Registered Nurse Filed: 09/11/16 1445 Date of Service: 09/11/161442 Status: Addendum Sofa Cover Inspector: Deidre Westfall RN (Registered Nurse) Related Notes: Original Note by Deidre Westfall RN (Registered Nurse) filed at 09/11/16 144 6 Met with pt and spouse Shyanne re d/c planning. Pt states he would like a FWW. Will obtain sc ript and fax to [employer]. Shyanne asking about a phone card and meal vouchers. Shyanne states she already used up the [employer] card calling her kids in [place]. Informed Shyanne not sure how many phone cards they can get during stay, but stated family in [place] can call in to pt's room. Informed Shyanne coles gets 1 meal voucher/day, she already used up todays. Shyanne states she will be driving pt home at d/c. Mitzi onver quique Transaction, Provider Unknown - 09/11/2016 12:10 PM PDT Nurse Progress Note by Sahron Chapman RN at 09/11/16 1210 Author: Sharon Chapman RN Service: Nephrology Author Type: Registered Nurse Filed: 09/11/16 1238 Date of Service: 09/11/16 1210 Status: Signed Sofa Cover Inspector: Sharon Chapman RN (Registered Nurse) Contacted by [...] Date of Service: 09/11/16 1202 Status: Addendum Sofa Cover Inspector: Amber Freitas RN (Registered Nurse) Related Notes: Original Note by Amber Freitas RN (Registered Nurse) filed at 09/11/161810 Dressing removed on accident by patient when ambulating to bathroom, RN dressed with gauze and tegaderm, historian research assistant contacted and will be to floor to inspect, clean and re-dress, pt complaining of increased pain to R arm where AVF is located, arm is swollen and warm to touc h, does not appear to have changed from previous assessment MD kavita Freitas, RN alnohemi son, Douglas Woodard - 09/11/2016 6:35 AM PDTFormatting of this note might be different from the betina ginal. Progress Notes by Douglas Barrow MD-R1 at 09/11/16 0635 Author: Douglas Barrow MD-R1 Service: Hospitalist Author Type: Resident-Y1 Filed: 09/11/16 3725 Date of Service: 09/11/16 0604 Status: Attested Sofa Cover Inspector: DAMIÁN KuR1 (Resident-Y1) Cosigner: Simone Roblero MD at 09/12/16 1 309 Attestation signed by Simone Roblero MD at 09/12/16 1309 I have seen [...] DM II, and hypothyroidism who presented to [facility] with hyperkalemia 2/2 missing dialysis appointments as his AVF was not functioning. SUBJECTIVE Patient was asleep this AM. He said he was doing well. He had no CP, no SOB, was otherwise okay. OBJECTIVE Temp: [98.4 F (36.9 C)-100 F (37.8 C)] 98.5 F (36.9 C) (09/11 124) BP: (106-158)/(57-86) 131/86 mmHg (09/11 124) Heart Rate: [79-92] 79 (09/11 124) Resp: [18-189] 189 (09/11 124) SpO2: [93 %-98 %] 96 % (09/11 124) Weight: [83.054 kg (183 lb 1.6 oz)] [...] torsemide 50 mg Oral Daily vitamin B fnosrzq-K-lgsbz acid 1 tablet Oral Daily PRN: acetaminophen OR acetaminophen, albumin human, diphenhydrAMINE, HYDROmorphone OR HY DROmorphone, ondansetron OR ondansetron, polyethylene glycol, sodium chloride, sodium ch loride, sodium chloride Douglas Barrow MD PGY1 09/11/2016 2:05 PM I Michael Strange DO, have reviewed this note. onversion Transac tion, Provider Unknown - 09/11/2016 6:20 AM PDTFormatting of this note might be different f rom the original. Nurse Progress Note by Carmina Lepe RN at 09/11/16619 Author: Carmina Lepe RN Service: (none) Author Type: Registered Nurse Filed: 09/11/16620 Date of Service: 09/11/16619 Status: Signed Sofa Cover Inspector: Carmina Lepe RN (Registered Nurse) Pt VS stable throughout the shift. No acute changes noted. Pt NPO at midnight. Will continu e to monitor. Carmina Lepe RN onver quique Transaction, Provider Unknown - 09/10/2016 6:09 PM PDT Progress Notes by Camilo Samson RN at 09/10/161808 Author: Camilo Samson RN Service: (none) Author Type: Registered Nurse Filed: 09/10/161809 Date of Service: 09/10/161808 Status: Signed Sofa Cover Inspector: Camilo Samson RN (Registered Nurse) No acute changes. Camilo Samson RN Onelia Cuello ae, MD - 09/10/2016 4:56 PM PDTFormatting of this note might be different from the origin al. Progress Notes by Oskar Meyer MD at 09/10/161655 Author: Oskar Meyer MD Service: Vascular Surgery Author Type: Physician Filed: 09/10/161658 Date of Service: 09/10/161655 Status: Addendum Sofa Cover Inspector: Oskar Meyer MD (Physician) Related Notes: Original Note by Oskar Meyer MD (Physician) filed at 09/10/16 1658 [facility] Service: Vascular Surgery Progress Note S/p right [...] to follow. Oskar Meyer MD 09/10/2016 onversion Transaction, P rovider Unknown - 09/10/2016 3:28 PM PDT Progress Notes by Mary Loja CMA at 09/10/16 1528 Author: Mary Loja CMA Service: (none) Author Type: Teacher Emotionally Impaired Filed: 09/10/16 1542 Date of Service: 09/10/16 1528 Status: Signed Sofa Cover Inspector: Mary Loja CMA (Teacher Emotionally Impaired) GPS- Patient enrolled and appt scheduled with PCP on 09/18 alvor sonDouglas - 09/10/2016 1:12 PM PDTFormatting of this note might be different from the betina ginal. Progress Notes by Douglas Barrow MD-R1 at 09/10/16 1312 Author: DAMIÁN KuR1 Service: Hospitalist Author Type: Resident-Y1 Filed: 09/10/16 1325 Date of Service: 09/10/16 1312 Status: Attested Sofa Cover Inspector: DAMIÁN KuR1 (Resident-Y1) Cosigner: Simone Roblero MD at 09/10/16 1 347 Attestation signed by Simone Roblero MD at 09/10/16 1347 I have seen and examined the patient [...] DM II, and hypothyroidism who presented to [facility] with hyperkalemia 2/2 missing dialysis appointments as [...] torsemide 50 mg Oral Daily vitamin B igjgeqe-I-abdxs acid 1 tablet Oral Daily PRN: acetaminophen [...] Note by Sharon Chapman RN at 09/10/16 4287 Author: Sharon Chapman RN Service: Nephrology Author Type: Registered Nurse Filed: 09/10/16 3936 Date of Service: 09/10/16 1237 Status: Signed Sofa Cover Inspector: Sharon Chapman RN (Registered Nurse) @7752 Accompanied pt down to CT per Dr [...] Date of Service: 09/10/16 1230 Status: Signed Sofa Cover Inspector: Sharon Chapman RN (Registered Nurse) @1230 Lock [...] Date of Service: 09/10/16 1114 Status: Signed Sofa Cover Inspector: Cosmo Soria MD (Physician) 7106/7106-1 LOS: 3 [...] is dialyzed Saturday an d Saturday at [facility] dialysis unit using right UE AVF (Dr. [...] was completed later after rounds. Dictation software, TrabajoPanel, was used which may contain error for [...] torsemide 50 mg Oral Daily vitamin B sqvfptx-P-wphcr acid 1 tablet Oral Daily onversion Transactio n, Provider Unknown - 09/10/2016 9:51 AM PDT Nurse Progress Note by Yahaira Roth RN at 09/10/16950 Author: Yahaira Roth RN Service: (none) Author Type: Registered Nurse Filed: 09/10/16953 Date of Service: 09/10/16950 Status: Signed Sofa Cover Inspector: Yahaira Roth RN (Registered Nurse) Spoke to [...] 09/10/16820 Date of Service: 09/10/16819 Status: Signed Sofa Cover Inspector: Camilo Samson RN (Registered Nurse) AM meds held until dialysis complete. Camilo Samson RN onver quique Transaction, Provider Unknown - 09/10/2016 4:13 AM PDT Nurse Progress Note by Carmina Lepe RN at 09/10/16412 Author: Carmina Lepe RN Service: (none) Author Type: Registered Nurse Filed: 09/10/16417 Date of Service: 09/10/16412 Status: Signed Sofa Cover Inspector: Carmina Lepe RN (Registered Nurse) Pt VS [...] 0758 Date of Service: 09/09/161941 Status: Signed Sofa Cover Inspector: Cosmo Soria MD (Physician) 7106/7106-1 LOS: 2 days Carol Potter is a 51 y.o. man whose PCP is Dr. ANDRY LOFTON. He is known to have ESRD as per PM> He had been having issues with his [...] is dialyzed Saturday an d Saturday at [facility] dialysis unit using right UE AVF (Dr. [...] was completed later after rounds. Dictation software, TrabajoPanel, was used which may contain error for [...] Oral Nightly sevelamer 2,400 mg Oral TID sodium bicarbonate 1,300 mg Oral BID sodium chloride 10 mL Intravenous Q8H vitamin B wlenndh-Z-vdgel acid 1 tablet Oral Daily onversion Transactio n, Provider Unknown - 09/09/2016 6:02 PM PDT Nurse Progress Note by Angeli Espinal RN at 09/09/161801 Author: Angeli Espinal RN Service: (none) Author Type: Registered Nurse Filed: 09/09/161804 Date of Service: 09/09/161801 Status: Signed Sofa Cover Inspector: Angeli Espinal RN (Registered Nurse) Pt had new dialysis line placed today in R groin. It appears to have some drainage around t he site. Called historian research assistant and was advised as long as not [...] Notes by Simone Roblero MD at 09/09/16 3919 Author: Simone Roblero MD Service: Hospitalist Author Type: Physician Filed: 09/09/16 0414 Date of Service: 09/09/16 8648 Status: Signed Sofa Cover Inspector: Simone Roblero MD (Physician) [facility] Service: Hospitalist Progress Note Hospital Day: [...] chloride 10 mL Intravenous Q8H vitamin B wivszce-H-ubshv acid 1 tablet Oral Daily Continuous Infusions [...] hours. No results for input(s): PHART, PO2ART, PPM9DWP, J4CYQYKZ, BEART in the last 168 hours. Recent Labs Lab 09/07/162022 INR 0.9 No results for input(s): TSH, T3FREE, FREET4 in the last 168 hours. Recent Labs Lab 09/08/16 0534 CKTOTAL 177 Radiology Xr Chest 1 View 09/08/2016 Normal single view chest. [facility] Electronically signed by Kevin Ely MD on Sep 08 2016 1:06AM Referring Provider Line: [phone] ID: [id number] PROBLEM LIST Principal Problem: Acute [...] 09/09/16554 Date of Service: 09/09/16554 Status: Signed Sofa Cover Inspector: Elsie Dickinson RN (Registered Nurse) No acute change in Pt condition from previous shift assessment. Elsie Dickinson RN Cosmo Lang MD - 09/08/2016 8:00 PM PDTFormatting of this note might be different from the or iginal. Progress Notes by Cosmo Soria MD at 09/08/161999 Author: Cosmo Soria MD Service: Nephrology Author Type: Physician Filed: 09/09/16905 Date of Service: 09/08/161999 Status: Signed Sofa Cover Inspector: Cosmo Soria MD (Physician) [id number] LOS: 1 [...] Biopsy-proven Diabetic nephropathy. He is dialyzed Saturday at [facility] dialysis unit using right UE AVF (Dr. [...] was completed later after rounds. Dictation software, TrabajoPanel, was used which may contain error for [...] chloride 10 mL Intravenous Q8H vitamin B hvpbkyj-S-utpzl acid 1 tablet Oral Daily onversion Transactio n, Provider Unknown - 09/08/2016 5:31 PM PDT Nurse Progress Note by Angeli Espinal RN at 09/08/16 173 Author: Angeli Espinal RN Service: (none) Author Type: Registered Nurse Filed: 09/08/16 1900 Date of Service: 09/08/161730 Status: Addendum Sofa Cover Inspector: Angeli Espinal RN (Registered Nurse) Related Notes: [...] Will continue to monitor. Angeli Espinal RN Simone Weber i, MD - 09/08/2016 2:51 PM PDTFormatting of this note might be different fro m the original. Progress Notes by Simone Roblero MD at 09/08/16 1451 Author: Simone Roblero MD Service: Hospitalist Author Type: Physician Filed: 09/08/16 1611 Date of Service: 09/08/16 1451 Status: Signed Sofa Cover Inspector: Simone Roblero MD (Physician) Related Notes: Original Note by Simone Roblero MD (Physician) filed at 09/08/16 2817 [facility] Service: Hospitalist Progress Note Hospital Day: [...] chloride 10 mL Intravenous Q8H vitamin B dvnkgma-C-tcnxz acid 1 tablet Oral Daily Continuous Infusions [...] hours. No results for input(s): PHART, PO2ART, SZO4RCN, I8RYSEXP, BEART in the last 168 hours. Recent Labs Lab 09/07/162022 INR 0.9 No results for input(s): TSH, T3FREE, FREET4 in the last 168 hours. Recent Labs Lab 09/08/16 0534 CKTOTAL 177 Radiology Xr Chest 1 View 09/08/2016 Normal single view chest. RADIA Electronically signed by Kevin Ely MD on Sep 08 2016 1:06AM Referring Provider Line: [phone] ID: [id number] PROBLEM LIST Principal Problem: Acute [...] Roblero MD 09/08/2016 2:52 PM onversion Tr ansaction, Provider Unknown - 09/08/2016 2:28 PM PDTFormatting of this note might be differ ent from the original. Case Management by VANDANA Olivia at 09/08/16 1428 Author: VANDANA Olivia Service: (none) Author Type: Warp Worker Filed: 09/08/16 9376 Date of Service: 09/08/161427 Status: Signed Sofa Cover Inspector: VANDANA Olivia (Warp Worker) 09/08/16 0586 Discharge Planning Evaluation Admitting Diagnosis ESRD Readmission No Living Arrangements Spouse/significant other (Shyanne Potter) Support Systems Spouse/significant other;Family members (Momo Potter, Son: [phone]) Type of Residence Private residence Independent with ADL's Yes Independent with Mobility Yes Home Care Services No Caregiver after Discharge Yes Caregiver Name Shyanne Potter Relationship to Patient Spouse Phone number No Phone Mental Status Oriented Power of Centerless Grinder Set Up Operator No Anticipated Discharge Plan Post Acute Care [...] Pt is ESRD and has dialysis at [facility] in [facility]. His Sister transports him to dialysis. Pt denied any discharge n eeds. Pt's Spouse stated that they are very low income and that they used all of their money gett ing to the hospital. She requested a meal voucher as she does not have money to purchase fo od and they live in [place]. CM provided a sack lunch voucher but explained that shannan onelia oes not have a daily meal plan for family members. CM explained that family can bring in gr ocery items that can be kept in the refrigerator in the room and that the family lounge has a microwave for family use. Patient's PCP is: ANDRY LOFTON Patient's insurance: Medicare and Medicaid Coverage concerns: No concerns Medication coverage/concerns: No concerns [facility] Bedside Delivery: Community resources utilized / needed: [...] Service: (none) Author Type: Registered Nurse Filed: 09/08/16728 Date of Service: 09/08/16724 Status: Signed Sofa Cover Inspector: Elsie Dickinson RN (Registered Nurse) Pt received hemodialysis upon admission to the floor, 2 liters off. Elsie Dickinson RN onver quique Transaction, Provider Unknown - 09/08/2016 3:24 AM PDT Pharmacy Note by Carmina Lara RPH at 09/08/16323 Author: Carmina Lara RPH Service: Pharmacy Author Type: Pharmacist Filed: 09/08/16323 Date of Service: 09/08/16323 Status: Signed Sofa Cover Inspector: Carmina Lara RPH (Pharmacist) Clinical Pharmacy Note: [...] 09/07/162307 Date of Service: 09/07/162137 Status: Addendum Sofa Cover Inspector: Artis Dean MD (Physician) Related Notes: Original Note by Artis Dean MD (Physician) filed at 09/07/162233 [facility] Service: Hospitalist Admission History & Physical Pt: Carol Potter AGE/SEX: 51 y.o. male ROOM: 1107/1107 PCP: ANDRY LOFTON : 1965 TODAY'S DATE: [...] pain, right upper quadrant 04/13/2012 Dialysis patient ([facility]) GI bleed 04/30/2012 from coumadin Walker as ambulation aid Gout Asthma pt not using inhaler any more, no symptoms DVT (deep venous thrombosis) ([facility]) x3 AV fistula ([facility]) lt arm Knee pain, right 07/06/2012 MSSA (methicillin susceptible Staphylococcus aureus) infection 04/11/2012 Anemia due to blood loss 04/30/2012 Amphetamine and other psychostimulant dependence, continuous 04/02/2012 Hyperphosphatemia 05/24/2012 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 Rash and nonspecific skin eruption 04/03/2012 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 Neuromuscular disorder ([facility]) neuropathy Hyperkalemia 11/09/2013 Chronic obstructive asthma with exacerbation ([facility]) 10/27/2013 SOB (shortness of breath) 10/27/2013 Diabetes mellitus type I ([facility]) who presents with Problem with Left arm [...] - SUPERFICIALIZATION; Surgeon: Oskar Meyer MD; Location: [facility] MAIN OR; Service: Vascular; Laterality: Right; Av fistula placement Right 02/09/2014 Procedure: AV FISTULA; Surgeon: Oskar Meyer MD; Location: [facility] MAIN OR; Service: Vascul ar; Laterality: Right; Av fistula repair Left 07/11/2012 Procedure: AV FISTULA - GRAFT REPAIR/REVISION; Surgeon: Oskar Meyer MD; [facility]; Service: Vascular; Laterality: Left; Superficialization of brachiobasilic fistula and right IJ perm cath insertion Dialysis fistula creation Left 07/11/2012 Procedure: DIALYSIS CATHETER - INSERTION; Surgeon: Oskar Meyer MD; Location: [facility] MAIN O R; Service: Vascular; Laterality: Left; removed dialysis catheter from left neck and plac ed new on in left chest, attempted in right neck but unable to place Catheter removal Right 07/07/2012 Procedure: DIALYSIS CATHETER - REMOVAL; Surgeon: Oskar Meyer MD; Location: [facility] BEDSIDE PROCEDURE; Service: General; Laterality: Right; perm cath Dialysis fistula creation Left 07/07/2012 Procedure: DIALYSIS CATHETER - INSERTION; Surgeon: Oskar Meyer MD; Location: [facility] BEDSID E PROCEDURE; Service: General; Laterality: Left; temporary dialysis catheter Knee arthroscopy Right 07/07/2012 Procedure: KNEE - ARTHROSCOPY; Surgeon: Favio Raza MD; Location: [facility] MAIN OR; S ervice: Orthopedics; Laterality: Right; After 1530 Av fistula placement Left 05/06/2012 Procedure: AV FISTULA; Surgeon: Oskar Meyer MD; Location: [facility] MAIN OR; Service: Vascul ar; Laterality: Left; Left arm possible right Colonoscopy with egd N/A 05/01/2012 Procedure: COLONOSCOPY W/ EGD; Surgeon: John Singleton MD; Location: [facility] ENDOSCOPY; Se rvice: Gastroenterology; Laterality: N/A; Prior [...] KIDS. CURRENTLY UNEMPLOYED, BEFOR E WORKED AT [employer] IN [place]. 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 Other recommendations for manage ment of this [...] 09/07/162322 Date of Service: 09/07/162320 Status: Signed Sofa Cover Inspector: Fernie Hopper MD (Physician) Procedure Orders: 1. Central line [[id number]] ordered by Fernie Hopper MD at 09/07/162320 Pre-procedure Diagnoses: 1. End-stage renal disease (ESRD) (HCC) [N18.6] Post-procedure Diagnoses: 1. End-stage renal disease (ESRD) (HCC) [N18.6] [facility] Service: Pulmonology BEDSIDE PROCEDURE NOTE Central Line [...] verify the correct mahamed ent, procedure, equipment, systems support engineer and site/side marked as required. Indications: vascular [...] by Jimenez Garnica MD PhD at 09/11/16 0872 Author: Jimenez Garnica MD PhD Service: Interventional Radiology Author Type: Physician Filed: 09/11/162103 Date of Service: 09/11/165 Status: Signed Sofa Cover Inspector: Jimenez Garnica MD PhD (Physician) Vascular & [...] again with right arm swelling and Dr. Mitch mirza rmed venogram yesterday which showed reocclusion of the right subclavian/brachiocephalic vei ns as well as the central axillary vein. Hospital Problem List: Patient Active Problem List Diagnosis Vitamin D deficiency Secondary renal hyperparathyroidism (HCC) Hypothyroidism Hypoalbuminemia Diabetes mellitus with ESRD (end-stage renal disease) ([facility]) Obesity (BMI 30-39.9) ESRD (end stage renal disease) on dialysis ([facility]) Anemia of chronic kidney failure Gout PUD (peptic ulcer disease) Steroid-induced hyperglycemia Polysubstance abuse Chronic steroid use Acute hyperkalemia Dialysis AV fistula malfunction ([facility]) Hyponatremia Chronic systolic heart failure ([facility]) Review of Systems: ROS All other systems negative. Code Status: Full Code Past Medical History: Past Medical History Diagnosis Date Hyperlipidemia Hypertension Thyroid disease Anemia Abdominal pain, right upper quadrant 04/13/2012 Dialysis patient ([facility]) GI bleed 04/30/2012 from coumadin Walker as ambulation aid Gout Asthma pt not using inhaler any more, no symptoms DVT (deep venous thrombosis) ([facility]) x3 AV fistula ([facility]) lt arm Knee pain, right 07/06/2012 MSSA (methicillin susceptible Staphylococcus aureus) infection 04/11/2012 Anemia due to blood loss 04/30/2012 Amphetamine and other psychostimulant dependence, continuous 04/02/2012 Hyperphosphatemia 05/24/2012 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 Rash and nonspecific skin eruption 04/03/2012 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[facility]) 05/01/2012 Neuromuscular disorder ([facility]) neuropathy Hyperkalemia 11/09/2013 Chronic obstructive asthma with exacerbation ([facility]) 10/27/2013 SOB (shortness of breath) 10/27/2013 Diabetes mellitus type I ([facility]) Hyponatremia 09/08/2016 Chronic systolic heart failure ([facility]) 09/10/2016 Past Surgical History: Past Surgical History Procedure Laterality Date Unlisted procedure arthroscopy shoulder rt , ligaments Superficialization of av fistula Right 03/30/2014 Procedure: AV FISTULA - SUPERFICIALIZATION; Surgeon: Oskar Meyer MD; Location: [facility] MAIN OR; Service: Vascular; Laterality: Right; Av fistula placement Right 02/09/2014 Procedure: AV FISTULA; Surgeon: Oskar Meyer MD; Location: [facility] MAIN OR; Service: Vascul ar; Laterality: Right; Av fistula repair Left 07/11/2012 Procedure: AV FISTULA - GRAFT REPAIR/REVISION; Surgeon: Oskar Meyer MD; Location: [facility] AIN OR; Service: Vascular; Laterality: Left; Superficialization of brachiobasilic fistula and right IJ perm cath insertion Dialysis fistula creation Left 07/11/2012 Procedure: DIALYSIS CATHETER - INSERTION; Surgeon: Oskar Meyer MD; Location: [facility] MAIN O R; Service: Vascular; Laterality: Left; removed dialysis catheter from left neck and plac ed new on in left chest, attempted in right neck but unable to place Catheter removal Right 07/07/2012 Procedure: DIALYSIS CATHETER - REMOVAL; Surgeon: Oskar Meyer MD; Location: [facility] BEDSIDE PROCEDURE; Service: General; Laterality: Right; perm cath Dialysis fistula creation Left 07/07/2012 Procedure: DIALYSIS CATHETER - INSERTION; Surgeon: Oskar Meyer MD; Location: [facility] BEDSID E PROCEDURE; Service: General; Laterality: Left; temporary dialysis catheter Knee arthroscopy Right 07/07/2012 Procedure: KNEE - ARTHROSCOPY; Surgeon: Favio Raza MD; Location: [facility] MAIN OR; ervice: Orthopedics; Laterality: Right; After 1530 Av fistula placement Left 05/06/2012 Procedure: AV FISTULA; Surgeon: Oskar Meyer MD; Location: [facility] MAIN OR; Service: Vascul ar; Laterality: Left; Left arm possible right Colonoscopy with egd N/A 05/01/2012 Procedure: COLONOSCOPY W/ EGD; Surgeon: John Singleton MD; Location: [facility] ENDOSCOPY; Se rvice: Gastroenterology; Laterality: N/A; Family [...] KIDS. CURRENTLY UNEMPLOYED, BEFOR E WORKED AT [employer] IN [place]. Quit METHAMPHETAMINES PER PATIENT after t he [...] torsemide 50 mg Oral Daily vitamin B klefvxm-L-gogoy acid 1 tablet Oral Daily Prescriptions prior [...] Lab 09/11/16 0627 09/10/16 1342 09/08/16 0534 09/07/16 2023 WBC 9.65 9.25 9.91 10.97 HGB 9.6* [...] injection site. I was notified by the x ray technologist and was asked to evaluate the [...] atherosclerotic, without aneurysm. Evaluation of the superior seth a cava is suboptimal due to the [...] Sep 08 2016 1:06AM Referring Provider Line: [phone] ID: [id number] Echo Cardiac Adult Complete 09/11/2016 [...] Consults by Oskar Meyer MD at 09/08/16 1141 Author: Oskar Meyer MD Service: Vascular Surgery Author Type: Physician Filed: 09/08/16 1148 Date of Service: 09/08/161141 Status: Signed Sofa Cover Inspector: Oskar Meyer MD (Physician) Subjective: Patient is [...] Diagnosis Date Noted End-stage renal disease (ESRD) ([facility]) 09/07/2016 Acute hyperkalemia 09/07/2016 Dialysis AV fistula malfunction ([facility]) 09/07/2016 Acute respiratory failure with hypoxia and hypercapnia ([facility]) 04/28/2016 Polysubstance abuse 04/28/2016 Hyponatremia 04/28/2016 Anemia of chronic disease 04/28/2016 Chronic obstructive asthma with exacerbation ([facility]) 04/28/2016 Chronic steroid use 04/28/2016 Gram-positive cocci bacteremia 03/18/2014 Pneumonia, organism unspecified 03/15/2014 Steroid-induced hyperglycemia 11/10/2013 Malnutrition of moderate degree ([facility]) 10/10/2012 PUD (peptic ulcer disease) 10/03/2012 Gout 07/06/2012 Anemia of chronic kidney failure 05/24/2012 HTN (hypertension) 04/30/2012 ESRD (end stage renal disease) on dialysis ([facility]) 04/30/2012 Diabetes mellitus with ESRD (end-stage renal disease) ([facility]) 04/14/2012 Obesity (BMI 30-39.9) 04/14/2012 Class: Chronic Hypoalbuminemia 04/11/2012 Hypothyroidism 04/07/2012 Vitamin D deficiency 04/03/2012 Secondary hyperparathyroidism (of renal origin) 04/03/2012 Past Medical History Diagnosis Date Hyperlipidemia Hypertension Thyroid disease Anemia Abdominal pain, right upper quadrant 04/13/2012 Dialysis patient ([facility]) GI bleed 04/30/2012 from coumadin Walker as ambulation aid Gout Asthma pt not using inhaler any more, no symptoms DVT (deep venous thrombosis) ([facility]) x3 AV fistula ([facility]) lt arm Knee pain, right 07/06/2012 MSSA (methicillin susceptible Staphylococcus aureus) infection 04/11/2012 Anemia due to blood loss 04/30/2012 Amphetamine and other psychostimulant dependence, continuous 04/02/2012 Hyperphosphatemia 05/24/2012 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 Rash and nonspecific skin eruption 04/03/2012 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[facility]) 05/01/2012 Neuromuscular disorder ([facility]) neuropathy Hyperkalemia 11/09/2013 Chronic obstructive asthma with exacerbation ([facility]) 10/27/2013 SOB (shortness of breath) 10/27/2013 Diabetes mellitus type I ([facility]) Past Surgical History Procedure Laterality Date Unlisted procedure arthroscopy shoulder rt , ligaments Superficialization of av fistula Right 03/30/2014 Procedure: AV FISTULA - SUPERFICIALIZATION; Surgeon: Oskar Meyer MD; Location: [facility] MAIN OR; Service: Vascular; Laterality: Right; Av fistula placement Right 02/09/2014 Procedure: AV FISTULA; Surgeon: Oskar Meyer MD; Location: [facility] MAIN OR; Service: Vascul ar; Laterality: Right; Av fistula repair Left 07/11/2012 Procedure: AV FISTULA - GRAFT REPAIR/REVISION; Surgeon: Oskar Meyer MD; Location: [facility] OR; Service: Vascular; Laterality: Left; Superficialization of brachiobasilic fistula and right IJ perm cath insertion Dialysis fistula creation Left 07/11/2012 Procedure: DIALYSIS CATHETER - INSERTION; Surgeon: Oskar Meyer MD; Location: [facility] MAIN O R; Service: Vascular; Laterality: Left; removed dialysis catheter from left neck and plac ed new on in left chest, attempted in right neck but unable to place Catheter removal Right 07/07/2012 Procedure: DIALYSIS CATHETER - REMOVAL; Surgeon: Oskar Meyer MD; Location: [facility] BEDSIDE PROCEDURE; Service: General; Laterality: Right; perm cath Dialysis fistula creation Left 07/07/2012 Procedure: DIALYSIS CATHETER - INSERTION; Surgeon: Oskar Meyer MD; Location: [facility] BEDSID E PROCEDURE; Service: General; Laterality: Left; temporary dialysis catheter Knee arthroscopy Right 07/07/2012 Procedure: KNEE - ARTHROSCOPY; Surgeon: Favio Raza MD; Location: [facility] MA[facility] OR; S ervice: Orthopedics; Laterality: Right; After 1530 Av fistula placement Left 05/06/2012 Procedure: AV FISTULA; Surgeon: Oskar Meyer MD; Location: [facility] MA[facility] OR; Service: Vascul ar; Laterality: Left; Left arm possible right Colonoscopy with egd N/A 05/01/2012 Procedure: COLONOSCOPY W/ EGD; Surgeon: John Singleton MD; Location: [facility] ENDOSCOPY; Se rvice: Gastroenterology; Laterality: N/A; Prescriptions [...] Service: Nephrology Author Type: Physician Filed: 09/08/16 0470 Date of Service: 09/07/162239 Status: Signed Sofa Cover Inspector: Cosmo Soria MD (Physician) 1107/1108 History Obtained From: patient, spouse, chart review Carol Potter is a 51 y.o. man whose PCP is Dr. ANDRY LOFTON. He is known to have ESRD as per PM> He has been having issues with his [...] He is dialyzed Saturday an saturday at [facility] dialysis unit using right UE AVF (Dr. [...] was completed later after rounds. Dictation software, TrabajoPanel, was used which may contain error for [...] 09/07/162148 Date of Service: 09/07/162148 Status: Signed Sofa Cover Inspector: Anthony Haque RN (Registered Nurse) RT called for neb Tx Anthony Haque RN 09/07/162148 onver quique Transaction, Provider Unknown - 09/07/2016 7:55 PM PDT ED Notes by Anthony Haque RN at 09/07/161954 Author: Anthony Haque RN Service: (none) Author Type: Registered Nurse Filed: 09/07/161956 Date of Service: 09/07/161954 Status: Signed Sofa Cover Inspector: Anthony Haque RN (Registered Nurse) Pt states [...] Service: Emergency Department Author Type: Physician Filed: 09/08/16 0107 Date of Service: 09/07/161951 Status: Signed Sofa Cover Inspector: Matteo Mejia MD (Physician) Procedure Orders: 1. Critical Care [[id number]] ordered by Matteo Mejia MD at 09/08/16 0106 [facility] Department of Emergency Medicine 8:08 PM History [...] left arm is too swollen. The patient's internal review and audit compliance is Dr. Timmons, who directed the patient [...] make the appointment. Patient was seen in [facility] earlier today and was diagnosed with gastritis. PCP: ANDRY LOFTON Past Medical History Diagnosis Date Hyperlipidemia Hypertension Thyroid disease Anemia Abdominal pain, right upper quadrant 04/13/2012 Dialysis patient ([facility]) GI bleed 04/30/2012 from coumadin Walker as ambulation aid Gout Asthma pt not using inhaler any more, no symptoms DVT (deep venous thrombosis) ([facility]) x3 AV fistula ([facility]) lt arm Knee pain, right 07/06/2012 MSSA (methicillin susceptible Staphylococcus aureus) infection 04/11/2012 Anemia due to blood loss 04/30/2012 Amphetamine and other psychostimulant dependence, continuous 04/02/2012 Hyperphosphatemia 05/24/2012 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 Rash and nonspecific skin eruption 04/03/2012 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 Neuromuscular disorder ([facility]) neuropathy Hyperkalemia 11/09/2013 Chronic obstructive asthma with exacerbation (HCC) 10/27/2013 SOB (shortness of breath) 10/27/2013 Diabetes mellitus type I (HCC) Past Surgical History Procedure Laterality Date Unlisted procedure arthroscopy shoulder rt , ligaments Superficialization of av fistula Right 03/30/2014 Procedure: AV FISTULA - SUPERFICIALIZATION; Surgeon: Oskar Meyer MD; Location: [facility] MAIN OR; Service: Vascular; Laterality: Right; Av fistula placement Right 02/09/2014 Procedure: AV FISTULA; Surgeon: Oskar Meyer MD; Location: [facility] MAIN OR; Service: Vascul ar; Laterality: Right; Av fistula repair Left 07/11/2012 Procedure: AV FISTULA - GRAFT REPAIR/REVISION; Surgeon: Oskar Meyer MD; Location: [facility] OR; Service: Vascular; Laterality: Left; Superficialization of brachiobasilic fistula and right IJ perm cath insertion Dialysis fistula creation Left 07/11/2012 Procedure: DIALYSIS CATHETER - INSERTION; Surgeon: Oskar Meyer MD; Location: [facility] MAIN O R; Service: Vascular; Laterality: Left; removed dialysis catheter from left neck and plac ed new on in left chest, attempted in right neck but unable to place Catheter removal Right 07/07/2012 Procedure: DIALYSIS CATHETER - REMOVAL; Surgeon: Oskar Meyer MD; Location: [facility] BEDSIDE PROCEDURE; Service: General; Laterality: Right; perm cath Dialysis fistula creation Left 07/07/2012 Procedure: DIALYSIS CATHETER - INSERTION; Surgeon: Oskar Meyer MD; Location: [facility] BEDSID E PROCEDURE; Service: General; Laterality: Left; temporary dialysis catheter Knee arthroscopy Right 07/07/2012 Procedure: KNEE - ARTHROSCOPY; Surgeon: Favio Raza MD; Location: [facility] MAIN OR; S ervice: Orthopedics; Laterality: Right; After 1530 Av fistula placement Left 05/06/2012 Procedure: AV FISTULA; Surgeon: Oskar Meyer MD; Location: [facility] MAIN OR; Service: Vascul ar; Laterality: Left; Left arm possible right Colonoscopy with egd N/A 05/01/2012 Procedure: COLONOSCOPY W/ EGD; Surgeon: John Singleton MD; Location: [facility] ENDOSCOPY; Se rvice: Gastroenterology; Laterality: N/A; Prior [...] KIDS. CURRENTLY UNEMPLOYED, BEFOR E WORKED AT [employer] IN [employer]. Quit METHAMPHETAMINES PER PATIENT after t he [...] Reviewed Old medical records. Nursing notes. Previous [facility] ED visits for unrelated complaints. ED Department Course 12 Lead ECG - Emergency Physician Interpretation: Rhythm: Sinus Ventricular Rate: 84 HI Interval: Normal ST Segments: Normal T Waves: [...] will obtain a laboratory evaluation and discussed nephrology. 9:01 PM Lab called with a [...] SD at 50.7. INR is 0.9. --> Bas dionte end-stage renal disease. 9:[address] Soria, internal review and audit compliance, who recommended medical management and consult with [...] glucose. 9:[address] Lehman, channel process supervisor, who states that there are no ICU beds at this time. However with help with temporary dialysis catheter placement if required. ED Medication Administration from 09/07/2016 1908 to 09/07/2016 2336 Date/Time Order Dose Route Action Action by 09/07/20162115 calcium gluconate 10 % injection 1,000 mg [...] will then go to the [facility] to receive dialysis tonight per nephrology. [...] Procedure Component Value Units Date/Time POCT glucose [[id number]] (Abnormal) Collected: 09/07/162139 GLUCOSE,POC SCREEN 223 (H) mg/dL Updated: 09/07/162142 Urinalysis (reflex to micro/reflex to culture) [[id number]] (Abnormal) Collected: 09/07 Specimen Information: Urine, Clean Catch Updated: 09/07/162124 COLOR UA STRAW CLARITY CLEAR Specific [place], UA 1.008 LEUKOCYTE ESTERASE NEGATIVE NITRITE NEGATIVE UROBILINOGEN NORMAL mg/dL PROTEIN 100 (A) mg/dL PH,URINE 6.0 BLOOD SMALL (A) KETONES NEGATIVE mg/dL BILIRUBIN NEGATIVE GLUCOSE >500 (A) mg/dL WBC 0-2 /hpf RBC NONE SEEN /hpf BACTERIA NONE SEEN EPITHELIAL 26-49 /lpf Comprehensive metabolic panel [[id number]] (Abnormal) Collected: 09/07/162022 Specimen Information: Blood Updated: [...] EGFR 6 (L) mL/min/1.73m2 CBC with differential [[id number]] (Abnormal) Collected: 09/07/162022 Specimen Information: Blood Updated: [...] RBC AND PLT MORPHOLOGY APPEAR NORMAL Protime-INR [[id number]] Collected: 09/07/162022 Specimen Information: Blood Updated: 09/07/162044 INR 0.9 Available Labs reviewed and interpreted by me. Radiology Evaluation Imaging Results None ED Diagnoses Final diagnoses ESRD (end stage renal disease) on dialysis (HCC) Hyperkalemia Arteriovenous fistula occlusion, initial encounter ([facility]) Anemia, unspecified type Wheezes Hyponatremia Hematuria Disposition: [...] 09/11/161947 Date of Service: 09/11/161935 Status: Signed Sofa Cover Inspector: Jimenez Garnica MD PhD (Physician) Interventional Radiology [...] 09/16/16917 Date of Service: 09/09/16911 Status: Addendum Sofa Cover Inspector: Oskar Meyer MD (Physician) Related Notes: Original Note by Oskar Meyer MD (Physician) filed at 09/09/16918 [facility] Service: Vascular Surgery Brief Op Note Pre-operative [...] under fluoroscopic guidance Surgeon: Oskar Meyer MD Dewaterer Operator(s): None Anesthesia: Moderate sedation and Local anesthesia [...] | | | Fingerstick | performed at [facility];[address] | | LAB | | | | [address];[place], [place] | | | | | | [address] | | | | + + + [...] | | | Fingerstick | performed at [facility];[address] | | LAB | | | | [address];[place], [place] | | | | | | [address] | | | | + + + [...] EXTERNAL | | | | performed at [facility], [address] | K/uL | LAB | | | | [address], | | | | | | [place] [address] | | | | + + + + + + | Non- | 2.86 (L)Comment: Testing | 4.20 - 5.70 | EXTERNAL | | | Red Blood | performed at [facility], [address] | [address] | LAB | | | Cells | [address], | | | | | Counted | [place] [address] | | | | + + + + + + | Hemoglobin | 8.7 (L)Comment: Testing | 13.2 - 17.0 | EXTERNAL | | | | performed at [facility], [address] | g/dL | LAB | | | | [address], | | | | | | [place] [address] | | | | + + + + + + | Hematocrit, | 25.9 (L)Comment: Testing | 39.0 - 50.0 % | EXTERNAL | | | POC | performed at [facility], [address] | | LAB | | | | [address], | | | | | | [place] [address] | | | | + + + + + + | MCV | 90.4Comment: Testing | 80.0 - 100.0 fl | EXTERNAL | | | | performed at [facility], [address] | | LAB | | | | [address], | | | | | | [place] [address] | | | | + + + + + + | MCH | 30.5Comment: Testing | 27.0 - 34.0 pg | EXTERNAL | | | | performed at [facility], [address] | | LAB | | | | [address], | | | | | | [place] [address] | | | | + + + + + + | MCHC | 33.7Comment: Testing | 32.0 - 35.5 | EXTERNAL | | | | performed at [facility], [address] | g/dL | LAB | | | [address], | | | | | | [place] [address] | | | | + + + + + + | RDW-CV | 54.3 (H)Comment: Testing | 37 - 53 fl | EXTERNAL | | | | performed at [facility], [address] | | LAB | | | | [address], | | | | | | [place] [address] | | | | + + + + + + | Platelet | 279Comment: Testing | 150 - 400 K/uL | EXTERNAL | | | Count | performed at [facility], [address] | | LAB | | | Plasma | [address], | | | | | | [place] [address] | | | | + + + + + + | MPV | 7.1Comment: Testing | fl | EXTERNAL | | | | performed at [facility], [address] | | LAB | | | | [address], | | | | | | [place] [address] | | | | + + + + + + | Differentia | AUTOMATEDComment: | | EXTERNAL | | | l Type | Testing performed at | | LAB | | | | [facility], [address] | | | | | | [place] | | | | | | [address] | | | | + + + + + + | % Segmented | 73.44Comment: Testing | % | EXTERNAL | | | | performed at [facility], [address] | | LAB | | | Neutrophils | [address], | | | | | | [place] [address] | | | | + + + + + + | % | 8.76Comment: Testing | % | EXTERNAL | | | Lymphocytes | performed at [facility], [address] | | LAB | | | | [address], | | | | | | [place] [address] | | | | + + + + + + | % Monocytes | 13.23Comment: Testing | % | EXTERNAL | | | | performed at [facility], [address] | | LAB | | | | [address], | | | | | | [place] [address] | | | | + + + + + + | % | 3.62Comment: Testing | % | EXTERNAL | | | Eosinophils | performed at [facility], [address] | | LAB | | | | [address], | | | | | | [place] [address] | | | | + + + + + + | % Basophils | 0.95Comment: Testing | % | EXTERNAL | | | | performed at [facility], [address] | | LAB | | | | [address], | | | | | | [place] [address] | | | | + + + + + + | Absolute | 7.90 (H)Comment: Testing | 1.90 - 7.40 | EXTERNAL | | | Segmented | performed at [facility], [address] | [address] | LAB | | | Neutrophils | [address], | | | | | | [place] [address] | | | | + + + + + + | Absolute | 0.94 (L)Comment: Testing | 1.00 - 3.90 | EXTERNAL | | | Lymphocytes | performed at [facility], [address] | [address] | LAB | | | | [address], | | | | | | [place] [address] | | | | + + + + + + | Absolute | 1.42 (H)Comment: Testing | 0.00 - 0.80 | EXTERNAL | | | Monocytes | performed at [facility], [address] | K/uL | LAB | | | | [address], | | | | | | [place] [address] | | | | + + + + + + | Absolute | 0.39Comment: Testing | 0.00 - 0.50 | EXTERNAL | | | Eosinophils | performed at [facility], [address] | K/uL | LAB | | | | [address], | | | | | | [place] [address] | | | | + + + + + + | Absolute | 0.10Comment: Testing | 0.00 - 0.10 | EXTERNAL | | | Basophils | performed at [facility], [address] | K/uL | LAB | | | | [address], | | | | | | [place] [address] | | | | + + + [...] EXTERNAL | | | | performed at [facility], [address] | | LAB | | | | [address], | | | | | | [place] [address] | | | | + + + [...] EXTERNAL | | | | performed at [facility], [address] | | LAB | | | | [address], | | | | | | [place] [address] | | | | + + + [...] EXTERNAL | | | | performed at [facility], [address] | | LAB | | | | [address], | | | | | | [place] [address] | | | | + + + [...] EXTERNAL | | | | performed at [facility], [address] | mmol/L | LAB | | | | [address], | | | | | | [place] [address] | | | | + + + + + + | K | 4.6Comment: Testing | 3.5 - 4.9 | EXTERNAL | | | | performed at [facility], [address] | mmol/L | LAB | | | | [address], | | | | | | [place] [address] | | | | + + + + + + | Cl | 97 (L)Comment: Testing | 99 - 109 mmol/L | EXTERNAL | | | | performed at [facility], [address] | | LAB | | | | [address], | | | | | | [place] [address] | | | | + + + + + + | CO2 | 28Comment: Testing | 23 - 32 mmol/L | EXTERNAL | | | | performed at [facility], [address] | | LAB | | | | [address], | | | | | | [place] [address] | | | | + + + + + + | Anion Gap | 14Comment: Testing | 5 - 20 mmol/L | EXTERNAL | | | | performed at [facility], [address] | | LAB | | | | [address], | | | | | | [place] [address] | | | | + + + + + + | Glucose, | 126 (H)Comment: Testing | 65 - 99 mg/dL | EXTERNAL | | | Fasting | performed at [facility], [address] | | LAB | | | [address], | | | | | | [place] [address] | | | | + + + + + + | BUN | 38 (H)Comment: Testing | 8 - 25 mg/dL | EXTERNAL | | | | performed at [facility], [address] | | LAB | | | | [address], | | | | | | [place] [address] | | | | + + + + + + | Creatinine | 6.0 (H)Comment: Testing | 0.70 - 1.30 | EXTERNAL | | | | performed at [facility], [address] | mg/dL | LAB | | | | [address], | | | | | | [place] [address] | | | | + + + + + + | BUN/Creatin | 6Comment: Testing | | EXTERNAL | | | ine Ratio | performed at [facility], [address] | | LAB | | | [address], | | | | | | [place] [address] | | | | + + + + + + | Calcium | 8.4 (L)Comment: Testing | 8.5 - 10.5 | EXTERNAL | | | | performed at [facility], [address] | mg/dL | LAB | | | | [address], | | | | | | [place] [address] | | | | + + + [...] | | | | | | [facility], | | | | | | [place] [address] | | | | + + + [...] | | | Fingerstick | performed at [facility];[address] | | LAB | | | | [address];[place] | | | | | | [address] | | | | + + + [...] | | | Fingerstick | performed at [facility];[address] | | LAB | | | | [address];[place] | | | | | | [address] [...] | | | Fingerstick | performed at [facility];[address] | | LAB | | | | [address];[place], [place] | | | | | | [address] | | | | + + + [...] | + + + | Patient Name: CRAOL POTTER Date of : 1965 | | [...] Pleural effusion present. | | | MEASUREMENTS Blockmason: SHIRA Authenticated by: | | | Flory Razo MD Report Date/Time: 09-14-2016 15:01:49 | | + + + + + | Procedure Note | + + | Khalif Palm Conversion - 02/04/2019 10:13 PM PDT Patient Name: JOSE POTTERjuan of | | : 1965 Performing Physician: [...] present.Pericardium: Pleural effusion present. | | MEASUREMENTS Blockmason: SHIRAAuthenticated by: Flory Razo MDReport | | Date/Time: [...] | |MEASUREMENTS | | | | | |Blockmason: SHIRA | |Authenticated by: Flory Razo MD [...] EXTERNAL | | | | performed at [facility], [address] | K/uL | LAB | | | | [address], | | | | | | [place] [address] | | | | + + + + + + | Non- | 2.87 (L)Comment: Testing | 4.20 - 5.70 | EXTERNAL | | | Red Blood | performed at [facility], [address] | M/uL | LAB | | | Cells | [address], | | | | | Counted | [place] [address] | | | | + + + + + + | Hemoglobin | 8.6 (L)Comment: Testing | 13.2 - 17.0 | EXTERNAL | | | | performed at [facility], [address] | g/dL | LAB | | | | [address], | | | | | | [place] [address] | | | | + + + + + + | Hematocrit, | 25.8 (L)Comment: Testing | 39.0 - 50.0 % | EXTERNAL | | | POC | performed at [facility], [address] | | LAB | | | | [address], | | | | | | [place] [address] | | | | + + + + + + | MCV | 90.0Comment: Testing | 80.0 - 100.0 fl | EXTERNAL | | | | performed at [facility], [address] | | LAB | | | | [address], | | | | | | [place] [address] | | | | + + + + + + | MCH | 29.9Comment: Testing | 27.0 - 34.0 pg | EXTERNAL | | | | performed at [facility], [address] | | LAB | | | | [address], | | | | | | [place] [address] | | | | + + + + + + | MCHC | 33.3Comment: Testing | 32.0 - 35.5 | EXTERNAL | | | | performed at [facility], [address] | g/dL | LAB | | | | [address], | | | | | | [place] [address] | | | | + + + + + + | RDW-CV | 52.9Comment: Testing | 37 - 53 fl | EXTERNAL | | | | performed at [facility], [address] | | LAB | | | | [address], | | | | | | [place] [address] | | | | + + + + + + | Platelet | 245Comment: Testing | 150 - 400 K/uL | EXTERNAL | | | Count | performed at [facility], [address] | | LAB | | | Plasma | [address], | | | | | | [place] [address] | | | | + + + + + + | MPV | 7.1Comment: Testing | fl | EXTERNAL | | | | performed at [facility], [address] | | LAB | | | | [address], | | | | | | [place] [address] | | | | + + + + + + | Differentia | AUTOMATEDComment: | | EXTERNAL | | | l Type | Testing performed at | | LAB | | | | [facility], [address] | | | | | | [place] | | | | | | [address] | | | | + + + + + + | % Segmented | 73.70Comment: Testing | % | EXTERNAL | | | | performed at [facility], [address] | | LAB | | | Neutrophils | [address], | | | | | | [place], [place] [address] | | | | + + + + + + | % | 7.56Comment: Testing | % | EXTERNAL | | | Lymphocytes | performed at [facility], [address] | | LAB | | | | [address], | | | | | | [place] [address] | | | | + + + + + + | % Monocytes | 14.10Comment: Testing | % | EXTERNAL | | | | performed at [facility], [address] | | LAB | | | | [address], | | | | | | [place] [address] | | | | + + + + + + | % | 4.10Comment: Testing | % | EXTERNAL | | | Eosinophils | performed at [facility], [address] | | LAB | | | | [address], | | | | | | [place] [address] | | | | + + + + + + | % Basophils | 0.54Comment: Testing | % | EXTERNAL | | | | performed at [facility], [address] | | LAB | | | | [address], | | | | | | [place] [address] | | | | + + + + + + | Absolute | 7.26Comment: Testing | 1.90 - 7.40 | EXTERNAL | | | Segmented | performed at [facility], [address] | K/uL | LAB | | | Neutrophils | [address], | | | | | | [place] [address] | | | | + + + + + + | Absolute | 0.74 (L)Comment: Testing | 1.00 - 3.90 | EXTERNAL | | | Lymphocytes | performed at [facility], [address] | [address] | LAB | | | | [address], | | | | | | [place] [address] | | | | + + + + + + | Absolute | 1.39 (H)Comment: Testing | 0.00 - 0.80 | EXTERNAL | | | Monocytes | performed at [facility], [address] | K/uL | LAB | | | | [address], | | | | | | [place] [address] | | | | + + + + + + | Absolute | 0.40Comment: Testing | 0.00 - 0.50 | EXTERNAL | | | Eosinophils | performed at [facility], [address] | K/uL | LAB | | | | [address], | | | | | | [place] [address] | | | | + + + + + + | Absolute | 0.05Comment: Testing | 0.00 - 0.10 | EXTERNAL | | | Basophils | performed at [facility], [address] | K[address]uL | LAB | | | | [address], | | | | | | [place] [address] | | | | + + + [...] EXTERNAL | | | | performed at [facility], [address] | | LAB | | | | [address], | | | | | | [place] [address] | | | | + + + [...] EXTERNAL | | | | performed at [facility], [address] | | LAB | | | | [address], | | | | | | [place] [address] | | | | + + + [...] EXTERNAL | | | | performed at [facility], [address] | | LAB | | | | [address], | | | | | | [place] [address] | | | | + + + [...] EXTERNAL | | | | performed at [facility], [address] | mmol/L | LAB | | | | [address], | | | | | | [place] [address] | | | | + + + + + + | K | 4.6Comment: Testing | 3.5 - 4.9 | EXTERNAL | | | | performed at [facility], [address] | mmol/L | LAB | | | | [address], | | | | | | [place] [address] | | | | + + + + + + | Cl | 92 (L)Comment: Testing | 99 - 109 mmol/L | EXTERNAL | | | | performed at [facility], [address] | | LAB | | | | [address], | | | | | | [place] [address] | | | | + + + + + + | CO2 | 26Comment: Testing | 23 - 32 mmol/L | EXTERNAL | | | | performed at [facility], [address] | | LAB | | | | [address], | | | | | | [place] [address] | | | | + + + + + + | Anion Gap | 16Comment: Testing | 5 - 20 mmol/L | EXTERNAL | | | | performed at [facility], [address] | | LAB | | | | [address], | | | | | | [place] [address] | | | | + + + + + + | Glucose, | 123 (H)Comment: Testing | 65 - 99 mg/dL | EXTERNAL | | | Fasting | performed at [facility], [address] | | LAB | | | | [address], | | | | | | [place] [address] | | | | + + + + + + | BUN | 58 (H)Comment: Testing | 8 - 25 mg/dL | EXTERNAL | | | | performed at [facility], [address] | | LAB | | | | [address], | | | | | | [place] [address] | | | | + + + + + + | Creatinine | 9.4 (H)Comment: Testing | 0.70 - 1.30 | EXTERNAL | | | | performed at [facility], [address] | mg/dL | LAB | | | | [address], | | | | | | [place] [address] | | | | + + + + + + | BUN/Creatin | 6Comment: Testing | | EXTERNAL | | | ine Ratio | performed at [facility], [address] | | LAB | | | | [address], | | | | | | [place] [address] | | | | + + + + + + | Calcium | 8.3 (L)Comment: Testing | 8.5 - 10.5 | EXTERNAL | | | | performed at [facility], [address] | mg/dL | LAB | | | | [address], | | | | | | [place] [address] | | | | + + + [...] [address], | | | | | | [place] [address] | | | | + + + [...] | | | Fingerstick | performed at [facility];[address] | | LAB | | | | [address];[place] | | | | | | [address] | | | | + + + [...] | | | Fingerstick | performed at [facility];[address] | | LAB | | | | [address];[place] | | | | | | [address] | | | | + + + [...] | | | Fingerstick | performed at [facility];[address] | | LAB | | | | [address];[place], [place] | | | | | | [address] | | | | + + + [...] | | | Fingerstick | performed at [facility];[address] | | LAB | | | | [address];[place], [place] | | | | | | [address] | | | | + + + [...] no pericardial effusion. MEASUREMENTS | | | Blockmason: SHIRA Authenticated by: Flory Razo MD Report Date/Time: 09-13-2016 19:34:14 | | + [...] | | is no pericardial effusion. MEASUREMENTS Blockmason: GDAuthenticated by: | | Flory Razo [facility] Date/Time: 09-13-2016 19:34:14 IMPRESSION: 1. Overall left [...] | |MEASUREMENTS | | | | | |Blockmason: SHIRA | |Authenticated by: Flory Razo MD | |Report Date/Time: 09-13-2016 19:34:14 | | | |IMPRESSION: | |1. Overall left ventricular systolic function is normal with, an EF between 55 - 60 %. | |2. There is no pericardial effusion. | + + External Lab: [facility] (09/13/2016 7:09 AM PDT) + + + + + + | Component | Value | Ref Range | Performed | Pathologist | | | | | At | Signature | + + + + + + | WBC | 10.06Comment: Testing | 3.80 - 11.00 | EXTERNAL | | | | performed at [facility];[address] | K/uL | LAB | | | | [address];[place] | | | | | | [address] | | | | + + + + + + | Non- | 2.89 (L)Comment: Testing | 4.20 - 5.70 | EXTERNAL | | | Red Blood | performed at [facility];[address] | M/uL | LAB | | | Cells | [address];[place] | | | | | Counted | [address] | | | | + + + + + + | Hemoglobin | 9.0 (L)Comment: Testing | 13.2 - 17.0 | EXTERNAL | | | | performed at [facility];[address] | g/dL | LAB | | | | [address];[place] | | | | | | [address] | | | | + + + + + + | Hematocrit, | 25.8 (L)Comment: Testing | 39.0 - 50.0 % | EXTERNAL | | | POC | performed at [facility];[address] | | LAB | | | | [address];[place] | | | | | | [address] | | | | + + + + + + | MCV | 89.3Comment: Testing | 80.0 - 100.0 fl | EXTERNAL | | | | performed at [facility];[address] | | LAB | | | | [address];[place] | | | | | | [address] | | | | + + + + + + | MCH | 31.1Comment: Testing | 27.0 - 34.0 pg | EXTERNAL | | | | performed at [facility];[address] | | LAB | | | | [address];[place] | | | | | | [address] | | | | + + + + + + | MCHC | 34.9Comment: Testing | 32.0 - 35.5 | EXTERNAL | | | | performed at [facility];[address] | g/dL | LAB | | | | [address];[place] | | | | | | [address] | | | | + + + + + + | RDW-CV | 51.2Comment: Testing | 37 - 53 fl | EXTERNAL | | | | performed at [facility];[address] | | LAB | | | | [address];[place] | | | | | | [address] | | | | + + + + + + | Platelet | 230Comment: Testing | 150 - 400 K/uL | EXTERNAL | | | Count | performed at [facility];[address] | | LAB | | | Plasma | [address];[place] | | | | | | [address] | | | | + + + + + + | MPV | 6.5Comment: Testing | fl | EXTERNAL | | | | performed at [facility];[address] | | LAB | | | | [address];[place] | | | | | | [address] | | | | + + + + + + | Differentia | AUTOMATEDComment: | | EXTERNAL | | | l Type | Testing performed at | | LAB | | | | [facility];[address];[place] [address] | | | | + + + + + + | % Segmented | 72.42Comment: Testing | % | EXTERNAL | | | | performed at [facility];[address] | | LAB | | | Neutrophils | [address];[place] | | | | | | [address] | | | | + + + + + + | % | 7.78Comment: Testing | % | EXTERNAL | | | Lymphocytes | performed at [facility];[address] | | LAB | | | | [address];[place] | | | | | | [address] | | | | + + + + + + | % Monocytes | 13.64Comment: Testing | % | EXTERNAL | | | | performed at [facility];[address] | | LAB | | | | [address];[place] | | | | | | [address] | | | | + + + + + + | % | 5.69Comment: Testing | % | EXTERNAL | | | Eosinophils | performed at [facility];[address] | | LAB | | | | [address];[place] | | | | | | [address] | | | | + + + + + + | % Basophils | 0.47Comment: Testing | % | EXTERNAL | | | | performed at [facility];[address] | | LAB | | | | [address];[place] | | | | | | [address] | | | | + + + + + + | Absolute | 7.28Comment: Testing | 1.90 - 7.40 | EXTERNAL | | | Segmented | performed at [facility];[address] | [address] | LAB | | | Neutrophils | [address];[place] | | | | | | [address] | | | | + + + + + + | Absolute | 0.78 (L)Comment: Testing | 1.00 - 3.90 | EXTERNAL | | | Lymphocytes | performed at [facility];[address] | [address] | LAB | | | | [address];[place] | | | | | | [address] | | | | + + + + + + | Absolute | 1.37 (H)Comment: Testing | 0.00 - 0.80 | EXTERNAL | | | Monocytes | performed at [facility];[address] | [address] | LAB | | | | [address];[place] | | | | | | [address] | | | | + + + + + + | Absolute | 0.57 (H)Comment: Testing | 0.00 - 0.50 | EXTERNAL | | | Eosinophils | performed at [facility];[address] | [address] | LAB | | | | [address];[place] | | | | | | [address] | | | | + + + + + + | Absolute | 0.05Comment: Testing | 0.00 - 0.10 | EXTERNAL | | | Basophils | performed at [facility];[address] | K/uL | LAB | | | | [address];[place], [place] | | | | | | [address] | | | | + + + [...] EXTERNAL | | | | performed at [facility] | | LAB | | | | [address];[place] | | | | | | [address] | | | | + + + [...] EXTERNAL | | | | performed at [facility];[address] | | LAB | | | | [address];[place] | | | | | | [address] | | | | + + + [...] + + | Hemoglobin | 6.0Comment: The [place] | 4.0 - 6.0 % | EXTERNAL [...] | | | | | performed at [facility], [address] | | | | | | [address] [facility], | | | | | | [place] [address] | | | | + + + [...] | | | | | performed at [facility], [address] | | | | | | [facility], | | | | | | [place] [address] | | | | + + + [...] EXTERNAL | | | | performed at [facility];888 | mmol/L | LAB | | | | [address];[place] | | | | | | [address] | | | | + + + + + + | K | 4.1Comment: Testing | 3.5 - 4.9 | EXTERNAL | | | | performed at [facility];888 | mmol/L | LAB | | | | [address];[place] | | | | | | [address] | | | | + + + + + + | Cl | 93 (L)Comment: Testing | 99 - 109 mmol/L | EXTERNAL | | | | performed at [facility];[address] | | LAB | | | | [address];[place] | | | | | | [address] | | | | + + + + + + | CO2 | 25Comment: Testing | 23 - 32 mmol/L | EXTERNAL | | | | performed at [facility];[address] | | LAB | | | | [address];[place] | | | | | | [address] | | | | + + + + + + | Anion Gap | 17Comment: Testing | 5 - 20 mmol/L | EXTERNAL | | | | performed at [facility];[address] | | LAB | | | | [address];[place] | | | | | | [address] | | | | + + + + + + | Glucose, | 173 (H)Comment: Testing | 65 - 99 mg/dL | EXTERNAL | | | Fasting | performed at [facility];[address] | | LAB | | | | [address];[place] | | | | | | [address] | | | | + + + + + + | BUN | 40 (H)Comment: Testing | 8 - 25 mg/dL | EXTERNAL | | | | performed at [facility];[address] | | LAB | | | | [address];[place] | | | | | | [address] | | | | + + + + + + | Creatinine | 7.3 (H)Comment: Testing | 0.70 - 1.30 | EXTERNAL | | | | performed at [facility];888 | mg/dL | LAB | | | | [address];[place] | | | | | | [address] | | | | + + + + + + | Calcium | 7.6 (L)Comment: Testing | 8.5 - 10.5 | EXTERNAL | | | | performed at [facility];888 | mg/dL | LAB | | | | [address];[place] | | | | | | [address] | | | | + + + + + + | Albumin | 2.8 (L)Comment: Testing | 3.6 - 5.0 g/dL | EXTERNAL | | | | performed at [facility];[address] | | LAB | | | | [address];[place] | | | | | | [address] | | | | + + + + + + | PHOSPHORUS | 3.6Comment: Testing | 2.3 - 4.8 mg/dL | EXTERNAL | | | | performed at [facility];[address] | | LAB | | | | [address];[place] | | | | | | [address] | | | | + + + [...] | | | | | | at [facility];[address] [place] [address] | | | | | | vd;[place] [address] | | | | + + + [...] K/uL | LAB | | | | [facility];[address] [facility] | | | | | | Blvd;[place] [address] | | | | + + + + + + | Non- | 2.92 (L)Comment: Testing | 4.20 - 5.70 | EXTERNAL | | | Red Blood | performed at [facility];888 | M/uL | LAB | | | Cells | [address];[place] | | | | | Counted | [id number] | | | | + + + + + + | Hemoglobin | 8.9 (L)Comment: Testing | 13.2 - 17.0 | EXTERNAL | | | | performed at [facility];888 | g/dL | LAB | | | | [address];[place] | | | | | | [address] | | | | + + + + + + | Hematocrit, | 26.2 (L)Comment: Testing | 39.0 - 50.0 % | EXTERNAL | | | POC | performed at [facility];[address] | | LAB | | | | [address];[place] | | | | | | [address] | | | | + + + + + + | MCV | 89.5Comment: Testing | 80.0 - 100.0 fl | EXTERNAL | | | | performed at [facility];[address] | | LAB | | | | [address];[place] | | | | | | [address] | | | | + + + + + + | MCH | 30.6Comment: Testing | 27.0 - 34.0 pg | EXTERNAL | | | | performed at [facility];[address] | | LAB | | | | [address];[place] | | | | | | [address] | | | | + + + + + + | MCHC | 34.1Comment: Testing | 32.0 - 35.5 | EXTERNAL | | | | performed at [facility];888 | g/dL | LAB | | | | [address];[place] | | | | | | [address] | | | | + + + + + + | RDW-CV | 51.2Comment: Testing | 37 - 53 fl | EXTERNAL | | | | performed at [facility];[address] | | LAB | | | | [address];[place] | | | | | | [address] | | | | + + + + + + | Platelet | 255Comment: Testing | 150 - 400 K/uL | EXTERNAL | | | Count | performed at [facility];[address] | | LAB | | | Plasma | [address];[place] | | | | | | [address] | | | | + + + + + + | MPV | 6.5Comment: Testing | fl | EXTERNAL | | | | performed at [facility];[address] | | LAB | | | | [address];[place] | | | | | | [address] | | | | + + + + + + | Differentia | AUTOMATEDComment: | | EXTERNAL | | | l Type | Testing performed at | | LAB | | | | [facility];[address] | | | [address];[place] [address] | | | | + + + + + + | % Segmented | 82.52Comment: Testing | % | EXTERNAL | | | | performed at [facility];[address] | | LAB | | | Neutrophils | [address];[place] | | | | | | [address] | | | | + + + + + + | % | 3.94Comment: Testing | % | EXTERNAL | | | Lymphocytes | performed at [facility];[address] | | LAB | | | | [address];[place] | | | | | | [address] | | | | + + + + + + | % Monocytes | 10.34Comment: Testing | % | EXTERNAL | | | | performed at [facility];[address] | | LAB | | | | [address];[place] | | | | | | [address] | | | | + + + + + + | % | 2.63Comment: Testing | % | EXTERNAL | | | Eosinophils | performed at [facility];[address] | | LAB | | | | [address];[place] | | | | | | [address] | | | | + + + + + + | % Basophils | 0.57Comment: Testing | % | EXTERNAL | | | | performed at [facility];[address] | | LAB | | | | [address];[place] | | | | | | [address] | | | | + + + + + + | Absolute | 9.75 (H)Comment: Testing | 1.90 - 7.40 | EXTERNAL | | | Segmented | performed at [facility];888 | K/uL | LAB | | | Neutrophils | [address];[place] | | | | | | [address] | | | | + + + + + + | Absolute | 0.47 (L)Comment: Testing | 1.00 - 3.90 | EXTERNAL | | | Lymphocytes | performed at [facility];888 | K/uL | LAB | | | | [address];[place] | | | | | | [address] | | | | + + + + + + | Absolute | 1.22 (H)Comment: Testing | 0.00 - 0.80 | EXTERNAL | | | Monocytes | performed at [facility];888 | K/uL | LAB | | | | [address];[place] | | | | | | [address] | | | | + + + + + + | Absolute | 0.31Comment: Testing | 0.00 - 0.50 | EXTERNAL | | | Eosinophils | performed at [facility];888 | K/uL | LAB | | | | [address];[place] | | | | | | [address] | | | | + + + + + + | Absolute | 0.07Comment: Testing | 0.00 - 0.10 | EXTERNAL | | | Basophils | performed at [facility];888 | K/uL | LAB | | | | [address];[place] | | | | | | [address] | | | | + + + [...] EXTERNAL | | | | performed at [facility];[address] | | LAB | | | | [address];[place], [place] | | | | | | [address] | | | | + + + [...] EXTERNAL | | | | performed at [facility];888 | mmol/L | LAB | | | | [address];[place] | | | | | | [address] | | | | + + + + + + | K | 4.9Comment: Testing | 3.5 - 4.9 | EXTERNAL | | | | performed at [facility];888 | mmol/L | LAB | | | | [address];[place] | | | | | | [address] | | | | + + + + + + | Cl | 93 (L)Comment: Testing | 99 - 109 mmol/L | EXTERNAL | | | | performed at [facility];[address] | | LAB | | | | [address];[place] | | | | | | [address] | | | | + + + + + + | CO2 | 24Comment: Testing | 23 - 32 mmol/L | EXTERNAL | | | | performed at [facility];[address] | | LAB | | | | [address];[place] | | | | | | [address] | | | | + + + + + + | Anion Gap | 17Comment: Testing | 5 - 20 mmol/L | EXTERNAL | | | | performed at [facility];[address] | | LAB | | | | [address];[place] | | | | | | [address] | | | | + + + + + + | Glucose, | 189 (H)Comment: Testing | 65 - 99 mg/dL | EXTERNAL | | | Fasting | performed at [facility];[address] | | LAB | | | | [address];[place] | | | | | | [address] | | | | + + + + + + | BUN | 52 (H)Comment: Testing | 8 - 25 mg/dL | EXTERNAL | | | | performed at [facility];[address] | | LAB | | | | [address];[place] | | | | | | [address] | | | | + + + + + + | Creatinine | 8.7 (H)Comment: Testing | 0.70 - 1.30 | EXTERNAL | | | | performed at [facility];888 | mg/dL | LAB | | | | [address];[place] | | | | | | [address] | | | | + + + + + + | Calcium | 7.1 (L)Comment: Testing | 8.5 - 10.5 | EXTERNAL | | | | performed at [facility];888 | mg/dL | LAB | | | | [address];[place] | | | | | | [address] | | | | + + + + + + | Albumin | 2.7 (L)Comment: Testing | 3.6 - 5.0 g/dL | EXTERNAL | | | | performed at [facility];[address] | | LAB | | | | [address];[place] | | | | | | [address] | | | | + + + + + + | PHOSPHORUS | 4.5Comment: Testing | 2.3 - 4.8 mg/dL | EXTERNAL | | | | performed at [facility];[address] | | LAB | | | | [address];[place], [place] | | | | | | [address] | | | | + + + [...] | | | | | | at [facility];[address];[place] [address] | | | | + + + [...] prior day venogram | | | PRIMARY EQUITY RESEARCH ANALYST: Jimenez Garnica MD, PhD, VI OPERATIONS: 1. | | | Ultrasound-guided right [...] | | | a 70 cm 7 Faroese Jules sheath was advanced to the right atrium. Next, | | | the right basilic vein was locally anesthetized with lidocaine and | | | real-time ultrasound guided micropuncture access was obtained and a 6 | | | Faroese 45 cm destination sheath was placed to [...] | echocardiogram and while awaiting for the chief technician to arise, he | | | [...] | there still remains significant recoil but voodoo of in-line | | | flow. 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 COMPARISON STUDIES: 10/06/2015 and | | prior day venogram PRIMARY EQUITY RESEARCH ANALYST: Jimenez Garnica MD, PhD, RPVI OPERATIONS:1. | | Ultrasound-guided right basilic venous [...] was obtained and a 70 cm 7 Faroese Jules | | sheath was advanced to the right atrium. Next, the right basilic vein was locally | | anesthetized with lidocaine and real-time ultrasound guided micropuncture access was | | obtained and a 6 Faroese 45 cm destination sheath was placed to [...] an echocardiogram and while awaiting for the chief technician to | | arise, he began [...] still remains | | significant recoil but voodoo of in-line flow. Following provisional stent | [...] prior day venogram | | | PRIMARY EQUITY RESEARCH ANALYST: Jimenez Garnica MD, PhD, RPVI OPERATIONS: [...] | | | a 70 cm 7 Faroese Jules sheath was advanced to the right atrium. Next, | | | the right basilic vein was locally anesthetized with lidocaine and | | | real-time ultrasound guided micropuncture access was obtained and a 6 | | | Faroese 45 cm destination sheath was placed to [...] | echocardiogram and while awaiting for the chief technician to arise, he | | | [...] | there still remains significant recoil but voodoo of in-line | | | flow. Following [...] and | | prior day venogram PRIMARY EQUITY RESEARCH ANALYST: Jimenez Garnica MD, PhD, RPVI OPERATIONS:1. | | Ultrasound-guided right basilic venous [...] was obtained and a 70 cm 7 Faroese Jules | | sheath was advanced to the right atrium. Next, the right basilic vein was locally | | anesthetized with lidocaine and real-time ultrasound guided micropuncture access was | | obtained and a 6 Faroese 45 cm destination sheath was placed to [...] an echocardiogram and while awaiting for the chief technician to | | arise, he began [...] still remains | | significant recoil but voodoo of in-line flow. Following provisional stent | [...] pericardial | | | effusion present. MEASUREMENTS Blockmason: CM | | | Authenticated by: Flory Razo MD Report Date/Time: 09-23-2016 | | | 17:12:08 | | + + + + + | Procedure Note | + + | Khalif Palm - 02/04/2019 10:13 PM PDT | | Patient Name: CAROL POTTRE | | Date of : 1965 | [...] MEASUREMENTS | | | | | | Blockmason: CM | | Authenticated by: Flory Razo [...] | occluded SVC who was undergoing attempted JUICE TESTER of his SVC when he | | [...] + + | Khalif Palm Conversion - 02/11/2019 3:21 PM PDT | | | | | | DATE OF SERVICE | | September 11, 2016 | | | | BRIEF HISTORY | | Mr. Potter is a 51-year-old gentleman with a history of end-stage renal | | disease and occluded SVC who was undergoing attempted JUICE TESTER of his SVC when | | he [...] Performing Physician: Kevin Ellis | | | | | | ------REPORT ADDENDED------ INDICATIONS SHORTNESS [...] TV A Lenard: 0.84 m/s TV Dec Alcon[place]: | | | 3.82 m/s2 TV Dec Time: 202.99 ms TV E Lenard: 0.77 m/s TV E/A | | | Ratio: 0.91 Blockmason: PAUL Authenticated by: Kevin | | | Caleb CABRERA Report Date/Time: 09-11-2016 12:56:14 | | + + + + + | Procedure Note | + + | Khalif Palm Conversion - 02/04/2019 10:13 PM PDT Patient Name: Aleisha POTTER | | : 1965 Performing Physician: Kevin [...] (A-L): 26.24 ml/m2LAAs | | A2C: 16.62 [id number] A-L A2C: 49.08 mlLALs A2C: 4.77 cmLAAs A4C: 17.33 [id number] | | A-L A4C: 53.09 mlLALs A4C: 4.80 cmAo Diam: 4.05 cmAV Cusp: 2.47 cmLA Diam: | | 3.09 cmLA/Ao: 0.76TAPSE: 2.72 cmIVC diameter: 1.44 cmIVC collapse: 0.39 cmIVC % | | collapse: 71.27 %HR: 82.96 BPMAV maxP.62 mmHgAV meanP.44 mmHgAV Vmax: | | 1.70 m/[place] Vmean: 1.32 m/[place] VTI: 38.03 cmAVA Vmax: 2.75 cm2AVA (VTI): 2.89 | | dx4DPGW Vmax: 0.00 cm2/m2AVAI (VTI): 0.00 cm2/m2LVCI Dopp: 4.59 l/iosp6WWXU Dopp: | | 8.95 l/minHR: 81.40 BPMLVOT [...] 0.14 m/sTV A Lenard: 0.84 m/sTV Dec [place]: | | 3.82 m/s2TV Dec Time: 202.99 msTV E Lenard: 0.77 m/sTV E/A Ratio: 0.91 Blockmason: | | KVWAuthenticated by: Kevin Ellis MDReport [...] A Lenard: 0.84 m/s | |TV Dec Alcona: 3.82 m/s2 | |TV Dec Time: 202.99 ms | |TV E Lenard: 0.77 m/s | |TV E/A Ratio: 0.91 | | | |Blockmason: KVW | |Authenticated by: Kevin Ellis MD | [...] EXTERNAL | | | | performed at [facility];888 | K/uL | LAB | | | | [address];[place], [place] | | | | | | [address] | | | | + + + + + + | Non- | 3.18 (L)Comment: Testing | 4.20 - 5.70 | EXTERNAL | | | Red Blood | performed at [facility];888 | M/uL | LAB | | | Cells | [address];[place] | | | | | Counted | [address] | | | | + + + + + + | Hemoglobin | 9.6 (L)Comment: Testing | 13.2 - 17.0 | EXTERNAL | | | | performed at [facility];888 | g/dL | LAB | | | | [address];[place] | | | | | | [address] | | | | + + + + + + | Hematocrit, | 28.2 (L)Comment: Testing | 39.0 - 50.0 % | EXTERNAL | | | POC | performed at [facility];[address] | | LAB | | | | [address];[place] | | | | | | [address] | | | | + + + + + + | MCV | 88.8Comment: Testing | 80.0 - 100.0 fl | EXTERNAL | | | | performed at [facility];[address] | | LAB | | | | [address];[place] | | | | | | [address] | | | | + + + + + + | MCH | 30.2Comment: Testing | 27.0 - 34.0 pg | EXTERNAL | | | | performed at [facility];[address] | | LAB | | | | [address];[place] | | | | | | [address] | | | | + + + + + + | MCHC | 34.0Comment: Testing | 32.0 - 35.5 | EXTERNAL | | | | performed at [facility];888 | g/dL | LAB | | | | [address];[place] | | | | | | [address] | | | | + + + + + + | RDW-CV | 52.9Comment: Testing | 37 - 53 fl | EXTERNAL | | | | performed at [facility];[address] | | LAB | | | | [address];[place] | | | | | | [address] | | | | + + + + + + | Platelet | 239Comment: Testing | 150 - 400 K/uL | EXTERNAL | | | Count | performed at [facility];[address] | | LAB | | | Plasma | [address];[place] | | | | | | [address] | | | | + + + + + + | MPV | 6.1Comment: Testing | fl | EXTERNAL | | | | performed at [facility];[address] | | LAB | | | | [address];[place] | | | | | | [address] | | | | + + + + + + | Differentia | AUTOMATEDComment: | | EXTERNAL | | | l Type | Testing performed at | | LAB | | | | [facility];[address] | | | | | | [address];[place] [address] | | | | + + + + + + | % Segmented | 71.63Comment: Testing | % | EXTERNAL | | | | performed at [facility];[address] | | LAB | | | Neutrophils | [address];[place] | | | | | | [address] | | | | + + + + + + | % | 9.51Comment: Testing | % | EXTERNAL | | | Lymphocytes | performed at [facility];[address] | | LAB | | | | [address];[place] | | | | | | [address] | | | | + + + + + + | % Monocytes | 10.36Comment: Testing | % | EXTERNAL | | | | performed at [facility];[address] | | LAB | | | | [address];[place] | | | | | | [address] | | | | + + + + + + | % | 7.66Comment: Testing | % | EXTERNAL | | | Eosinophils | performed at [facility];[address] | | LAB | | | | [address];[place] | | | | | | [address] | | | | + + + + + + | % Basophils | 0.84Comment: Testing | % | EXTERNAL | | | | performed at [facility];[address] | | LAB | | | | [address];[place] | | | | | | [address] | | | | + + + + + + | Absolute | 6.92Comment: Testing | 1.90 - 7.40 | EXTERNAL | | | Segmented | performed at [facility];888 | K/uL | LAB | | | Neutrophils | [address];[place] | | | | | | [address] | | | | + + + + + + | Absolute | 0.92 (L)Comment: Testing | 1.00 - 3.90 | EXTERNAL | | | Lymphocytes | performed at [facility];888 | K/uL | LAB | | | | [address];[place] | | | | | | [address] | | | | + + + + + + | Absolute | 1.00 (H)Comment: Testing | 0.00 - 0.80 | EXTERNAL | | | Monocytes | performed at [facility];888 | K/uL | LAB | | | | [address];[place] | | | | | | [address] | | | | + + + + + + | Absolute | 0.74 (H)Comment: Testing | 0.00 - 0.50 | EXTERNAL | | | Eosinophils | performed at [facility];888 | K/uL | LAB | | | | [address];[place] | | | | | | [address] | | | | + + + + + + | Absolute | 0.08Comment: Testing | 0.00 - 0.10 | EXTERNAL | | | Basophils | performed at [facility];888 | K/uL | LAB | | | | [address];[place] | | | | | | [address] | | | | + + + [...] EXTERNAL | | | | performed at [facility];[address] | | LAB | | | | [address];[place], [place] | | | | | | [address] | | | | + + + [...] EXTERNAL | | | | performed at [facility];[address] | | LAB | | | | [address];[place] | | | | | | [address] | | | | + + + [...] EXTERNAL | | | | performed at [facility];888 | mmol/L | LAB | | | | [address];[place] | | | | | | [address] | | | | + + + + + + | K | 4.5Comment: Testing | 3.5 - 4.9 | EXTERNAL | | | | performed at [facility];888 | mmol/L | LAB | | | | [address];[place] | | | | | | [address] | | | | + + + + + + | Cl | 95 (L)Comment: Testing | 99 - 109 mmol/L | EXTERNAL | | | | performed at [facility];[address] | | LAB | | | | [address];[place] | | | | | | [address] | | | | + + + + + + | CO2 | 28Comment: Testing | 23 - 32 mmol/L | EXTERNAL | | | | performed at [facility];[address] | | LAB | | | | [address];[place] | | | | | | [address] | | | | + + + + + + | Anion Gap | 14Comment: Testing | 5 - 20 mmol/L | EXTERNAL | | | | performed at [facility];[address] | | LAB | | | | [address];[place] | | | | | | [address] | | | | + + + + + + | Glucose, | 100 (H)Comment: Testing | 65 - 99 mg/dL | EXTERNAL | | | Fasting | performed at [facility];[address] | | LAB | | | | [address];[place] | | | | | | [address] | | | | + + + + + + | BUN | 40 (H)Comment: Testing | 8 - 25 mg/dL | EXTERNAL | | | | performed at [facility];[address] | | LAB | | | | [address];[place] | | | | | | [address] | | | | + + + + + + | Creatinine | 6.4 (H)Comment: Testing | 0.70 - 1.30 | EXTERNAL | | | | performed at [facility];888 | mg/dL | LAB | | | | [address];[place] | | | | | | [address] | | | | + + + + + + | BUN/Creatin | 6Comment: Testing | | EXTERNAL | | | ine Ratio | performed at [facility];[address] | | LAB | | | | [address];[place] | | | | | | [address] | | | | + + + + + + | Calcium | 7.3 (L)Comment: Testing | 8.5 - 10.5 | EXTERNAL | | | | performed at [facility];888 | mg/dL | LAB | | | | [address];[place] | | | | | | [address] | | | | + + + + + + | Protein, | 6.8Comment: Testing | 6.3 - 8.2 g/dL | EXTERNAL | | | Total | performed at [facility];[address] | | LAB | | | | [address];[place] | | | | | | [address] | | | | + + + + + + | Albumin | 2.9 (L)Comment: Testing | 3.6 - 5.0 g/dL | EXTERNAL | | | | performed at [facility];[address] | | LAB | | | | [address];[place] | | | | | | [address] | | | | + + + + + + | Globulin | 3.9Comment: Testing | 1.3 - 4.9 g/dL | EXTERNAL | | | | performed at [facility];[address] | | LAB | | | | [address];[place] | | | | | | [address] | | | | + + + + + + | A/G Ratio | 0.8 (L)Comment: Testing | 1.0 - 2.4 | EXTERNAL | | | | performed at [facility];[address] | | LAB | | | | [address];[place] | | | | | | [address] | | | | + + + + + + | Bilirubin | 0.5Comment: Testing | 0.1 - 1.5 mg/dL | EXTERNAL | | | Total | performed at [facility];[address] | | LAB | | | | [address];[place] | | | | | | [address] | | | | + + + + + + | ALP, | 82Comment: Testing | 35 - 115 U/L | EXTERNAL | | | External | performed at [facility];[address] | | LAB | | | | [address];[place] | | | | | | [address] | | | | + + + + + + | AST | 14Comment: Testing | 10 - 45 U/L | EXTERNAL | | | | performed at [facility];[address] | | LAB | | | | [address] [address];[place] | | | | | | [address] | | | | + + + + + + | ALT | 17Comment: Testing | 10 - 65 U/L | EXTERNAL | | | | performed at [facility];[address] | | LAB | | | | [address];[place] | | | | | | [address] | | | | + + + [...] | | | | | | at [facility];[address] [place] [address] | | | | | | [facility];[place] [address] | | | | + + + [...] EXTERNAL | | | | performed at [facility];888 | K/uL | LAB | | | | [address];[place] | | | | | | [address] | | | | + + + + + + | Non- | 3.28 (L)Comment: Testing | 4.20 - 5.70 | EXTERNAL | | | Red Blood | performed at [facility];888 | M/uL | LAB | | | Cells | [address];[place] | | | | | Counted | [id number] | | | | + + + + + + | Hemoglobin | 10.1 (L)Comment: Testing | 13.2 - 17.0 | EXTERNAL | | | | performed at [facility];888 | g/dL | LAB | | | | [address];[place] | | | | | | [address] | | | | + + + + + + | Hematocrit, | 29.0 (L)Comment: Testing | 39.0 - 50.0 % | EXTERNAL | | | POC | performed at [facility];[address] | | LAB | | | | [address];[place] | | | | | | [address] | | | | + + + + + + | MCV | 88.5Comment: Testing | 80.0 - 100.0 fl | EXTERNAL | | | | performed at [facility];[address] | | LAB | | | | [address];[place] | | | | | | [address] | | | | + + + + + + | MCH | 30.9Comment: Testing | 27.0 - 34.0 pg | EXTERNAL | | | | performed at [facility];[address] | | LAB | | | | [address];[place] | | | | | | [address] | | | | + + + + + + | MCHC | 34.9Comment: Testing | 32.0 - 35.5 | EXTERNAL | | | | performed at [facility];888 | g/dL | LAB | | | | [address];[place] | | | | | | [address] | | | | + + + + + + | RDW-CV | 51.6Comment: Testing | 37 - 53 fl | EXTERNAL | | | | performed at [facility];[address] | | LAB | | | | [address];[place] | | | | | | [address] | | | | + + + + + + | Platelet | 223Comment: Testing | 150 - 400 K/uL | EXTERNAL | | | Count | performed at [facility];[address] | | LAB | | | Plasma | [address];[place] | | | | | | [address] | | | | + + + + + + | MPV | 6.5Comment: Testing | fl | EXTERNAL | | | | performed at [facility];[address] | | LAB | | | | [address];[place] | | | | | | [address] | | | | + + + + + + | Differentia | AUTOMATEDComment: | | EXTERNAL | | | l Type | Testing performed at | | LAB | | | | [facility];[address] | | | | | | [address];[place] [address] | | | | + + + + + + | % Segmented | 73.14Comment: Testing | % | EXTERNAL | | | | performed at [facility];[address] | | LAB | | | Neutrophils | [address];[place] | | | | | | [address] | | | | + + + + + + | % | 8.28Comment: Testing | % | EXTERNAL | | | Lymphocytes | performed at [facility];[address] | | LAB | | | | [address];[place] | | | | | | [address] | | | | + + + + + + | % Monocytes | 10.77Comment: Testing | % | EXTERNAL | | | | performed at [facility];[address] | | LAB | | | | [address];[place] | | | | | | [address] | | | | + + + + + + | % | 7.40Comment: Testing | % | EXTERNAL | | | Eosinophils | performed at [facility];[address] | | LAB | | | | [address];[place] | | | | | | [address] | | | | + + + + + + | % Basophils | 0.41Comment: Testing | % | EXTERNAL | | | | performed at [facility];[address] | | LAB | | | | [address];[place] | | | | | | [address] | | | | + + + + + + | Absolute | 6.77Comment: Testing | 1.90 - 7.40 | EXTERNAL | | | Segmented | performed at [facility];888 | K/uL | LAB | | | Neutrophils | [address];[place] | | | | | | [address] | | | | + + + + + + | Absolute | 0.77 (L)Comment: Testing | 1.00 - 3.90 | EXTERNAL | | | Lymphocytes | performed at [facility];888 | K/uL | LAB | | | | [address];[place] | | | | | | [address] | | | | + + + + + + | Absolute | 1.00 (H)Comment: Testing | 0.00 - 0.80 | EXTERNAL | | | Monocytes | performed at [facility];888 | K/uL | LAB | | | | [address];[place] | | | | | | [address] | | | | + + + + + + | Absolute | 0.68 (H)Comment: Testing | 0.00 - 0.50 | EXTERNAL | | | Eosinophils | performed at [facility];888 | K/uL | LAB | | | | [address];[place] | | | | | | [address] | | | | + + + + + + | Absolute | 0.04Comment: Testing | 0.00 - 0.10 | EXTERNAL | | | Basophils | performed at [facility];888 | K/uL | LAB | | | | [address];[place] | | | | | | [address] | | | | + + + [...] EXTERNAL | | | | performed at [facility];[address] | | LAB | | | | [address];[place], [place] | | | | | | [address] | | | | + + + [...] EXTERNAL | | | | performed at [facility];[address] | | LAB | | | | [address];[place], [place] | | | | | | [address] | | | | + + + [...] EXTERNAL | | | | performed at [facility];888 | mmol/L | LAB | | | | [address];[place] | | | | | | [address] | | | | + + + + + + | K | 3.8Comment: Testing | 3.5 - 4.9 | EXTERNAL | | | | performed at [facility];888 | mmol/L | LAB | | | | [address];[place] | | | | | | [address] | | | | + + + + + + | Cl | 97 (L)Comment: Testing | 99 - 109 mmol/L | EXTERNAL | | | | performed at [facility];[address] | | LAB | | | | [address];[place] | | | | | | [address] | | | | + + + + + + | CO2 | 28Comment: Testing | 23 - 32 mmol/L | EXTERNAL | | | | performed at [facility];[address] | | LAB | | | | [address];[place] | | | | | | [address] | | | | + + + + + + | Anion Gap | 14Comment: Testing | 5 - 20 mmol/L | EXTERNAL | | | | performed at [facility];[address] | | LAB | | | | [address];[place] | | | | | | [address] | | | | + + + + + + | Glucose, | 120 (H)Comment: Testing | 65 - 99 mg/dL | EXTERNAL | | | Fasting | performed at [facility];[address] | | LAB | | | | [address];[place] | | | | | | [address] | | | | + + + + + + | BUN | 27 (H)Comment: Testing | 8 - 25 mg/dL | EXTERNAL | | | | performed at [facility];[address] | | LAB | | | | [address];[place] | | | | | | [address] | | | | + + + + + + | Creatinine | 4.5 (H)Comment: Testing | 0.70 - 1.30 | EXTERNAL | | | | performed at [facility];888 | mg/dL | LAB | | | | [address];[place] | | | | | | [address] | | | | + + + + + + | BUN/Creatin | 6Comment: Testing | | EXTERNAL | | | ine Ratio | performed at [facility];[address] | | LAB | | | | [address];[place] | | | | | | [address] | | | | + + + + + + | Calcium | 7.8 (L)Comment: Testing | 8.5 - 10.5 | EXTERNAL | | | | performed at [facility];888 | mg/dL | LAB | | | | [address];[place] | | | | | | [address] | | | | + + + + + + | Protein, | 7.1Comment: Testing | 6.3 - 8.2 g/dL | EXTERNAL | | | Total | performed at [facility];[address] | | LAB | | | | [address];[place] | | | | | | [address] | | | | + + + + + + | Albumin | 3.1 (L)Comment: Testing | 3.6 - 5.0 g/dL | EXTERNAL | | | | performed at [facility];[address] | | LAB | | | | [address];[place] | | | | | | [address] | | | | + + + + + + | Globulin | 4.0Comment: Testing | 1.3 - 4.9 g/dL | EXTERNAL | | | | performed at [facility];[address] | | LAB | | | | [address];[place] | | | | | | [address] | | | | + + + + + + | A/G Ratio | 0.8 (L)Comment: Testing | 1.0 - 2.4 | EXTERNAL | | | | performed at [facility];[address] | | LAB | | | | [address];[place] | | | | | | [address] | | | | + + + + + + | Bilirubin | 0.5Comment: Testing | 0.1 - 1.5 mg/dL | EXTERNAL | | | Total | performed at [facility];[address] | | LAB | | | | [address];[place] | | | | | | [address] | | | | + + + + + + | ALP, | 91Comment: Testing | 35 - 115 U/L | EXTERNAL | | | External | performed at [facility];[address] | | LAB | | | | [address];[place] | | | | | | [address] | | | | + + + + + + | AST | 15Comment: Testing | 10 - 45 U/L | EXTERNAL | | | | performed at [facility];[address] | | LAB | | | | [address];[place] | | | | | | [address] | | | | + + + + + + | ALT | 23Comment: Testing | 10 - 65 U/L | EXTERNAL | | | | performed at [facility];[address] | | LAB | | | | [address];[place] | | | | | | [address] | | | | + + + [...] | | | | | | at [facility];[address] | | | | | | [address];[place] [address] | | | | + + + [...] Conversion - 02/04/2019 10:13 PM PDT CAROL BASURTO CHEST W CONTRAST09/10/2016 | | 12:20 PM [...] was | | | notified by the x ray technologist and was asked to evaluate the [...] - 02/04/2019 10:13 PM PDT CAROL Fuller JIM years MaleCT | | CHEST W CONTRAST09/09/2016 [...] injection site. I was notified by the x ray technologist and was asked to evaluate the [...] evidence of | | compartment syndrome. Dr. eMyer, the ordering physician, was also notified. FINDINGS: [...] SURGEON Oskar Meyer, | | | MD HYDRATE CONTROL TENDER None ANESTHESIA Moderate sedation, local | | [...] | | | subclavian vein. Therefore a 6-Faroese sheath was then inserted over | | [...] femoral vein under fluoroscopic guidance SURGEON Oskar Meyer | | | MD HYDRATE CONTROL TENDER None ANESTHESIA Moderate sedation, local | | [...] | | | subclavian vein. Therefore a 6-Faroese sheath was then inserted over | | [...] guidance SURGEON Oskar Meyer, | | | HYDRATE CONTROL TENDER None ANESTHESIA Moderate sedation, local | | [...] | | | subclavian vein. Therefore a 6-Faroese sheath was then inserted over | | [...] SURGEON Oskar Meyer, | | | MD HYDRATE CONTROL TENDER None ANESTHESIA Moderate sedation, local | | [...] | | | subclavian vein. Therefore a 6-Faroese sheath was then inserted over | | [...] | | | Fingerstick | performed at [facility];[address] | | LAB | | | | [address];[place], [place] | | | | | | [address] | | | | + + + [...] | | | Fingerstick | performed at [facility];[address] | | LAB | | | | [address];[place] | | | | | | [address] | | | | + + + [...] | | | | | | [place] [address] | | | | + + + + + + | Non- | 3.39 (L)Comment: Testing | 4.20 - 5.70 | EXTERNAL | | | Red Blood | performed at [facility], [address] | M/uL | LAB | | | Cells | [address], | | | | | Counted | [place] [address] | | | | + + + + + + | Hemoglobin | 10.4 (L)Comment: Testing | 13.2 - 17.0 | EXTERNAL | | | | performed at [facility], [address] | g/dL | LAB | | | | [address], | | | | | | [place] [address] | | | | + + + + + + | Hematocrit, | 29.7 (L)Comment: Testing | 39.0 - 50.0 % | EXTERNAL | | | POC | performed at [facility], [address] | | LAB | | | | [address], | | | | | | [place] [address] | | | | + + + + + + | MCV | 87.6Comment: Testing | 80.0 - 100.0 fl | EXTERNAL | | | | performed at [facility], [address] | | LAB | | | | [address], | | | | | | [place] [address] | | | | + + + + + + | MCH | 30.5Comment: Testing | 27.0 - 34.0 pg | EXTERNAL | | | | performed at [facility], [address] | | LAB | | | | [address], | | | | | | [place] [address] | | | | + + + + + + | MCHC | 34.9Comment: Testing | 32.0 - 35.5 | EXTERNAL | | | | performed at [facility], [address] | g/dL | LAB | | | | [address], | | | | | | [place] [address] | | | | + + + + + + | RDW-CV | 52.9Comment: Testing | 37 - 53 fl | EXTERNAL | | | | performed at [facility], [address] | | LAB | | | | [address], | | | | | | [place] [address] | | | | + + + + + + | Platelet | 255Comment: Testing | 150 - 400 K/uL | EXTERNAL | | | Count | performed at [facility], [address] | | LAB | | | Plasma | [address], | | | | | | [place] [address] | | | | + + + + + + | MPV | 6.8Comment: Testing | fl | EXTERNAL | | | | performed at [facility], [address] | | LAB | | | | [address], | | | | | | [place] [address] | | | | + + + + + + | Differentia | MANUALComment: Testing | | EXTERNAL | | | l Type | performed at [facility], [address] | | LAB | | | | [address], | | | | | | [place] [address] | | | | + + + + + + | Segmented | 95Comment: Testing | % | EXTERNAL | | | Neutrophils | performed at [facility], [address] | | LAB | | | Manual | [address], | | | | | | [place] [address] | | | | + + + + + + | Lymphocytes | 3Comment: Testing | % | EXTERNAL | | | Manual | performed at [facility], [address] | | LAB | | | | [address], | | | | | | [place] [address] | | | | + + + + + + | Monocytes | 2Comment: Testing | % | EXTERNAL | | | Manual | performed at [facility], [address] | | LAB | | | | [address], | | | | | | [place] [address] | | | | + + + + + + | Absolute | 9.41 (H)Comment: Testing | 1.90 - 7.40 | EXTERNAL | | | Neutrophils | performed at [facility], [address] | K/uL | LAB | | | | [address], | | | | | | [place] [address] | | | | + + + + + + | Absolute | 0.30 (L)Comment: Testing | 1.00 - 3.90 | EXTERNAL | | | Lymphocytes | performed at [facility], [address] | K/uL | LAB | | | | [address], | | | | | | [place] [address] | | | | + + + + + + | Absolute | 0.20Comment: Testing | 0.00 - 0.80 | EXTERNAL | | | Monocytes | performed at [facility], [address] | K/uL | LAB | | | | [address], | | | | | | [place] [address] | | | | + + + + + + | RBC | RBC AND PLT MORPHOLOGY | | EXTERNAL | | | Morphology | APPEAR NORMALComment: | | LAB | | | | Testing performed at | | | | | | [facility], [address] | | | | | | [place] | | | | | | [address] | | | | + + + [...] EXTERNAL | | | | performed at [facility], [address] | | LAB | | | | [address], | | | | | | [place] [address] | | | | + + + [...] | | | | | [place] [address] | | | | + + + [...] EXTERNAL | | | | performed at [facility];[address] | | LAB | | | | [address];[place], [place] | | | | | | [address] | | | | + + + [...] | performed at [facility], [address] | mmol/L | LAB | | | | [address], | | | | | | [place] [address] | | | | + + + + + + | K | 4.4Comment: Testing | 3.5 - 4.9 | EXTERNAL | | | | performed at [facility], [address] | mmol/L | LAB | | | | [address], | | | | | | [place] [address] | | | | + + + + + + | Cl | 98 (L)Comment: Testing | 99 - 109 mmol/L | EXTERNAL | | | | performed at [facility], [address] | | LAB | | | | [address], | | | | | | [place] [address] | | | | + + + + + + | CO2 | 22 (L)Comment: Testing | 23 - 32 mmol/L | EXTERNAL | | | | performed at [facility], [address] | | LAB | | | | [address], | | | | | | [place] [address] | | | | + + + + + + | Anion Gap | 19Comment: Testing | 5 - 20 mmol/L | EXTERNAL | | | | performed at [facility], [address] | | LAB | | | | [address], | | | | | | [place] [address] | | | | + + + + + + | Glucose, | 169 (H)Comment: Testing | 65 - 99 mg/dL | EXTERNAL | | | Fasting | performed at [facility], [address] | | LAB | | | | [address], | | | | | | [place] [address] | | | | + + + + + + | BUN | 41 (H)Comment: Testing | 8 - 25 mg/dL | EXTERNAL | | | | performed at [facility], [address] | | LAB | | | | [address], | | | | | | [place] [address] | | | | + + + + + + | Creatinine | 5.5 (H)Comment: Testing | 0.70 - 1.30 | EXTERNAL | | | | performed at [facility], [address] | mg/dL | LAB | | | | [address], | | | | | | [place] [address] | | | | + + + + + + | BUN/Creatin | 7Comment: Testing | | EXTERNAL | | | ine Ratio | performed at [facility], [address] | | LAB | | | | [address], | | | | | | [place] [address] | | | | + + + + + + | Calcium | 8.5Comment: Testing | 8.5 - 10.5 | EXTERNAL | | | | performed at [facility], [address] | mg/dL | LAB | | | | [address], | | | | | | [place] [address] | | | | + + + + + + | Protein, | 7.4Comment: Testing | 6.3 - 8.2 g/dL | EXTERNAL | | | Total | performed at [facility], [address] | | LAB | | | | [address], | | | | | | [place] [address] | | | | + + + + + + | Albumin | 3.5 (L)Comment: Testing | 3.6 - 5.0 g/dL | EXTERNAL | | | | performed at [facility], [address] | | LAB | | | | [address], | | | | | | [place] [address] | | | | + + + + + + | Globulin | 3.9Comment: Testing | 1.3 - 4.9 g/dL | EXTERNAL | | | | performed at [facility], [address] | | LAB | | | | [address], | | | | | | [place] [address] | | | | + + + + + + | A/G Ratio | 0.9 (L)Comment: Testing | 1.0 - 2.4 | EXTERNAL | | | | performed at [facility], [address] | | LAB | | | | [address], | | | | | | [place] [address] | | | | + + + + + + | Bilirubin | 0.8Comment: Testing | 0.1 - 1.5 mg/dL | EXTERNAL | | | Total | performed at [facility], [address] | | LAB | | | | [address], | | | | | | [place] [address] | | | | + + + + + + | ALP, | 81Comment: Testing | 35 - 115 U/L | EXTERNAL | | | External | performed at [facility], [address] | | LAB | | | | [address], | | | | | | [place] [address] | | | | + + + + + + | AST | 23Comment: Testing | 10 - 45 U/L | EXTERNAL | | | | performed at [facility], [address] | | LAB | | | | [address], | | | | | | [place] [address] | | | | + + + + + + | ALT | 35Comment: Testing | 10 - 65 U/L | EXTERNAL | | | | performed at [facility], [address] | | LAB | | | | [address], | | | | | | [place] [address] | | | | + + + [...] [place], | | | | | | [place] [address] | | | | + + + [...] | | | Fingerstick | performed at [facility] | | LAB | | | | [address];[place] | | | | | | [address] | | | | + + + [...] + + | Historically converted procedure from [facility] Epic environment | EXTERNAL LAB | + [...] 1:06AM Referring Provider Line: | | | [phone] ID: [id number] | | + + + [...] Palm Conversion - 02/04/2019 10:13 PM PDT EXAM:CHEST [...] 2016 1:06AM Referring | | Provider Line: [phone] ID: [id number] | |COMPARISON: 04/28/2016. | | [...] 08 2016 1:06AM Referring Provider Mariah ne: [phone] ID: [id number] | + + POC Glucose (09/07/2016 11:47 PM PDT) + + + + + + | Component | Value | Ref Range | Performed | Pathologist | | | | | At | Signature | + + + + + + | Glucose, | 115 (H)Comment: Testing | 65 - 99 mg/dL | EXTERNAL | | | Fingerstick | performed at [facility] | | LAB | | | | [address];[place] | | | | | | [address] | | | | + + + [...] | | | Fingerstick | performed at [facility];[address] | | LAB | | | | [address];[place] | | | | | | [address] | | | | + + + [...] EXTERNAL | | | | performed at [facility];[address] | | LAB | | | | [address];[place] | | | | | | [address] | | | | + + + + + + | Clarity, | CLEARComment: Testing | | EXTERNAL | | | Urine | performed at [facility];[address] | | LAB | | | | [address];[place] | | | | | | [address] | | | | + + + + + + | Specific | 1.008Comment: Testing | 1.002 - 1.030 | EXTERNAL | | | [place], | performed at [facility];[address] | | LAB | | | Urine | [address];[place] | | | | | | [address] | | | | + + + + + + | Leukocyte | NEGATIVEComment: Testing | | EXTERNAL | | | Esterase, | performed at [facility];[address] | | LAB | | | Urine | [address];[place] | | | | | | [address] | | | | + + + + + + | Nitrite, | NEGATIVEComment: Testing | | EXTERNAL | | | Urine | performed at [facility];[address] | | LAB | | | | [address];[place] | | | | | | [address] | | | | + + + + + + | Urobilinoge | NORMALComment: Testing | mg/dL | EXTERNAL | | | n, Urine | performed at [facility];[address] | | LAB | | | | [address];[place] | | | | | | [address] | | | | + + + + + + | Protein, | 100 (A)Comment: Testing | mg/dL | EXTERNAL | | | Urine | performed at [facility];[address] | | LAB | | | | [address];[place] | | | | | | [address] | | | | + + + + + + | pH, Urine | 6.0Comment: Testing | 5.0 - 8.0 | EXTERNAL | | | | performed at [facility];[address] | | LAB | | | | [address];[place] | | | | | | [address] | | | | + + + + + + | Blood, | SMALL (A)Comment: | | EXTERNAL | | | Urine | Testing performed at | | LAB | | | | [facility];[address];[place] [address] | | | | + + + + + + | Ketones | NEGATIVEComment: Testing | mg/dL | EXTERNAL | | | | performed at [facility];[address] | | LAB | | | | [address];[place] | | | | | | [address] | | | | + + + + + + | Bilirubin, | NEGATIVEComment: Testing | | EXTERNAL | | | Urine | performed at [facility];[address] | | LAB | | | | [address];[place] | | | | | | [address] | | | | + + + + + + | Glucose, | >500 (A)Comment: Testing | mg/dL | EXTERNAL | | | Urine | performed at [facility];[address] | | LAB | | | | [address];[place] | | | | | | [address] | | | | + + + + + + | WBC, UA | 0-2Comment: Testing | 0 - 5 /hpf | EXTERNAL | | | | performed at [facility];[address] | | LAB | | | | [address];[place] | | | | | | [address] | | | | + + + + + + | RBC, UA | NONE SEENComment: | 0 - 2 /hpf | EXTERNAL | | | | Testing performed at | | LAB | | | | [facility];[address];[place] [address] | | | | + + + + + + | Bacteria, | NONE SEENComment: | | EXTERNAL | | | UA | Testing performed at | | LAB | | | | [facility];[address];[place] [address] | | | | + + + + + + | Epithelial | 26-49Comment: Testing | /lpf | EXTERNAL | | | Cells | performed at [facility];[address] | | LAB | | | | [address];[place] | | | | | | [address] | | | | + + + [...] 04-APR-2014 | | | | | | 14:20,HI interval has | | | | | [...] (500), | | | | | | map editor ANA M NAVARRO | | | | | | (125) on 09/08/2016 | | | | | | 5:36:27 AM | | | | + + + + + + + + | Specimen | + + | | + + + + + | Narrative | Performed At | + + + | Historically converted procedure from [facility] Epic environment | EXTERNAL LAB | + [...] | | | | | performed at [facility] | | | | | | [address] [address] [facility], [place] | | | | | | [address] | | | | + + + [...] + +---------+ + + External Lab: CBC (09/07/2016 8:23 PM PDT) + + + + + + | Component | Value | Ref Range | Performed | Pathologist | | | | | At | Signature | + + + + + + | WBC | 10.97Comment: Testing | 3.80 - 11.00 | EXTERNAL | | | | performed at [facility];[address] | [address] | LAB | | | | [address];[place] | | | | | | [address] | | | | + + + + + + | Non- | 3.37 (L)Comment: Testing | 4.20 - 5.70 | EXTERNAL | | | Red Blood | performed at [facility];[address] | M/uL | LAB | | | Cells | [address];[place] | | | | | Counted | [address] | | | | + + + + + + | Hemoglobin | 10.4 (L)Comment: Testing | 13.2 - 17.0 | EXTERNAL | | | | performed at [facility];888 | g/dL | LAB | | | | [address];[place] | | | | | | [address] | | | | + + + + + + | Hematocrit, | 30.4 (L)Comment: Testing | 39.0 - 50.0 % | EXTERNAL | | | POC | performed at [facility];888 | | LAB | | | | [address];[place] | | | | | | [address] | | | | + + + + + + | MCV | 90.1Comment: Testing | 80.0 - 100.0 fl | EXTERNAL | | | | performed at [facility];888 | | LAB | | | | [address];[place] | | | | | | [address] | | | | + + + + + + | MCH | 30.8Comment: Testing | 27.0 - 34.0 pg | EXTERNAL | | | | performed at [facility];888 | | LAB | | | | [address];[place] | | | | | | [address] | | | | + + + + + + | MCHC | 34.1Comment: Testing | 32.0 - 35.5 | EXTERNAL | | | | performed at [facility];888 | g/dL | LAB | | | | [address];[place] | | | | | | [address] | | | | + + + + + + | RDW-CV | 54.7 (H)Comment: Testing | 37 - 53 fl | EXTERNAL | | | | performed at [facility];888 | | LAB | | | | [address];[place] | | | | | | [address] | | | | + + + + + + | Platelet | 224Comment: Testing | 150 - 400 K/uL | EXTERNAL | | | Count | performed at [facility];888 | | LAB | | | Plasma | [address];[place] | | | | | | [address] | | | | | | | | | | + + + + + + | MPV | 6.5Comment: Testing | fl | EXTERNAL | | | | performed at [facility];888 | | LAB | | | | [address];[place] | | | | | | [address] | | | | | | | | | | + + + + + + | Differentia | MANUALComment: Testing | | EXTERNAL | | | l Type | performed at [facility];888 | | LAB | | | | [address];[place] | | | | | | [address] | | | | + + + + + + | Segmented | 86Comment: Testing | % | EXTERNAL | | | Neutrophils | performed at [facility];888 | | LAB | | | Manual | [address];[place] | | | | | | [address] | | | | + + + + + + | % Bands | 11Comment: Testing | % | EXTERNAL | | | | performed at [facility];888 | | LAB | | | | [address];[place] | | | | | | [address] | | | | + + + + + + | Lymphocytes | 2Comment: Testing | % | EXTERNAL | | | Manual | performed at [facility];888 | | LAB | | | | [address];[place] | | | | | | [address] | | | | + + + + + + | Monocytes | 1Comment: Testing | % | EXTERNAL | | | Manual | performed at [facility];888 | | LAB | | | | [address];[place] | | | | | | [address] | | | | + + + + + + | Absolute | 9.43 (H)Comment: Testing | 1.90 - 7.40 | EXTERNAL | | | Neutrophils | performed at [facility];888 | K/uL | LAB | | | | [address];[place] | | | | | | [address] | | | | + + + + + + | Bands | 1.21 (H)Comment: Testing | 0.00 - 0.20 | EXTERNAL | | | Manual | performed at [facility];888 | K/uL | LAB | | | | [address];[place] | | | | | | [address] | | | | + + + + + + | Absolute | 0.22 (L)Comment: Testing | 1.00 - 3.90 | EXTERNAL | | | Lymphocytes | performed at [facility];888 | K/uL | LAB | | | | [address];[place] | | | | | | [address] | | | | + + + + + + | Absolute | 0.11Comment: Testing | 0.00 - 0.80 | EXTERNAL | | | Monocytes | performed at [facility];888 | K/uL | LAB | | | | [address];[place] | | | | | | [address] | | | | + + + + + + | Platelet | ADEQUATEComment: Testing | | EXTERNAL | | | Estimate | performed at [facility];[address] | | LAB | | | | [address];[place] | | | | | | [address] | | | | + + + + + + | RBC | RBC AND PLT MORPHOLOGY | | EXTERNAL | | | Morphology | APPEAR NORMALComment: | | LAB | | | | Testing performed at | | | | | | [facility];[address];[place] [address] | | | | + + + [...] EXTERNAL | | | | performed at [facility];888 | mmol/L | LAB | | | | [address];[place] | | | | | | [address] | | | | + + + + + + | K | 6.9 ()Comment: RESULT | 3.5 - 4.9 | EXTERNAL | | | | READ BACK BY:LORRAINE Rousseau AT | mmol/L | LAB | | | | 2057 BY JSSTesting | | | | | | performed at [facility];[address] | | | | | | [address];[place] | | | | | | [address] | | | | + + + + + + | Cl | 102Comment: Testing | 99 - 109 mmol/L | EXTERNAL | | | | performed at [facility];[address] | | LAB | | | | [address];[place] | | | | | | [address] | | | | + + + + + + | CO2 | 17 (L)Comment: Testing | 23 - 32 mmol/L | EXTERNAL | | | | performed at [facility];888 | | LAB | | | | [address];[place] | | | | | | [address] | | | | + + + + + + | Anion Gap | 18Comment: Testing | 5 - 20 mmol/L | EXTERNAL | | | | performed at [facility];[address] | | LAB | | | | [address];[place] | | | | | | [address] | | | | + + + + + + | Glucose, | 205 (H)Comment: Testing | 65 - 99 mg/dL | EXTERNAL | | | Fasting | performed at [facility];[address] | | LAB | | | | [address];[place] | | | | | | [address] | | | | + + + + + + | BUN | 87 (H)Comment: Testing | 8 - 25 mg/dL | EXTERNAL | | | | performed at [facility];[address] | | LAB | | | | [address];[place] | | | | | | [address] | | | | + + + + + + | Creatinine | 10 (H)Comment: Testing | 0.70 - 1.30 | EXTERNAL | | | | performed at [facility];888 | mg/dL | LAB | | | | [address];[place] | | | | | | [address] | | | | + + + + + + | BUN/Creatin | 9Comment: Testing | | EXTERNAL | | | ine Ratio | performed at [facility];[address] | | LAB | | | | [address];[place] | | | | | | [address] | | | | + + + + + + | Calcium | 7.7 (L)Comment: Testing | 8.5 - 10.5 | EXTERNAL | | | | performed at [facility];888 | mg/dL | LAB | | | | [address];[place] | | | | | | [address] | | | | + + + + + + | Protein, | 7.8Comment: Testing | 6.3 - 8.2 g/dL | EXTERNAL | | | Total | performed at [facility];888 | | LAB | | | | [address];[place] | | | | | | [address] | | | | + + + + + + | Albumin | 3.6Comment: Testing | 3.6 - 5.0 g/dL | EXTERNAL | | | | performed at [facility];[address] | | LAB | | | | [address];[place] | | | | | | [address] | | | | + + + + + + | Globulin | 4.2Comment: Testing | 1.3 - 4.9 g/dL | EXTERNAL | | | | performed at [facility];[address] | | LAB | | | | [address];[place] | | | | | | [address] | | | | + + + + + + | A/G Ratio | 0.9 (L)Comment: Testing | 1.0 - 2.4 | EXTERNAL | | | | performed at [facility];[address] | | LAB | | | | [address];[place] | | | | | | [address] | | | | + + + + + + | Bilirubin | 0.6Comment: Testing | 0.1 - 1.5 mg/dL | EXTERNAL | | | Total | performed at [facility];[address] | | LAB | | | | [address];[place] | | | | | | [address] | | | | + + + + + + | ALP, | 85Comment: Testing | 35 - 115 U/L | EXTERNAL | | | External | performed at [facility];[address] | | LAB | | | | [address];[place] | | | | | | [address] | | | | + + + + + + | AST | 25Comment: Testing | 10 - 45 U/L | EXTERNAL | | | | performed at [facility];888 | | LAB | | | | [address];[place] | | | | | | [address] | | | | + + + + + + | ALT | 37Comment: Testing | 10 - 65 U/L | EXTERNAL | | | | performed at [facility];[address] | | LAB | | | | [address];[place] | | | | | | [address] | | | | + + + [...] | | | | | | at [facility];[address];[place] [address] | | | | + + + [...]
--- OUTSIDE RECORDS SUMMARY | ~2019-12-30 | XMS | Encounter Summary ---
Demographics + + + | Address | [address] | | | [place] [address] | + + + | Home Phone | | + + + | Preferred Language | Unknown | + + + | Marital Status | Single | + + + | Nondenominational Affiliation | Unknown | + + + | Race | or | + + + | Ethnic Group | Not or | + + + Author + + + | Author | [facility] | + + + | Organization | [facility] | + + + | Address | [...] Team Providers + +------+ + | Care Police Lieutenant Precinct Name | Role | Phone | + +------+ + | Berenice Hicks | PCP | | + +------+ + Reason for Visit + + + | Reason | Comments | + + + | Phone communication | | + + + Encounter Details +--------+ + + + + | Date | Type | Department | Care Team | Description | +--------+ + + + + | 12/14/ | Telephone | Clinical | Makenna Sheldon, | Phone communication | | 2019 | | Transplant Services | RN [address] | | | | | [address] | [place] [facility] [place] | | | | | [place], | [place], [place] | | | | | [place] [address] | [address] | | | | | [phone] | | | +--------+ + + + [...]
--- OUTSIDE RECORDS SUMMARY | ~2019-12-30 | XMS | Encounter Summary ---
Demographics + + + | Address | [address] | | | [place] [address] | + + + | Home Phone | | + + + | Preferred Language | Unknown | + + + | Marital Status | Unknown | + + + | Samaritan Affiliation | 1076 | + + + | Race | Unknown | + + + | Ethnic Group | Unknown | + + + Author + + + | Author | [facility] | | | and [place] | + + + | Organization | [facility] | | | and [place] | + + + | Address | Unknown | + + + | Phone | Unavailable | + + + Support + + +---------+ + | Name | Relationship | Address | Phone | + + +---------+ + | Shyanne Potter | ECON | Unknown | | + + +---------+ + | Momonaren Arenas | ECON | Unknown | | + + +---------+ + Care Team Providers + +------+ + | Care Potable Water Treatment Operator Name | Role | Phone | + +------+ + PCP | Unavailable | + +------+ + Encounter Details +--------+ + + + + | Date | Type | Department | Care Team | Description | +--------+ + + + + | 07/03/ | Hospital | [facility] | | | | 2010 | Encounter | MED [facility] | | | | | | CONV DEPT [address] | | | | | | [address], | | | | | | [place] [address] | | | | | | [phone] | | | +--------+ + + + [...]
--- OUTSIDE RECORDS SUMMARY | ~2019-12-30 | XMS | Encounter Summary ---
Demographics + + + | Address | [address] | | | [place] [address] | + + + | Home Phone | | + + + | Preferred Language | Unknown | + + + | Marital Status | Unknown | + + + | Latter-Day Affiliation | 1076 | + + + | Race | Unknown | + + + | Ethnic Group | Unknown | + + + Author + + + | Author | [facility] | | | and [place] | + + + | Organization | [facility] | | | [...] Team Providers + +------+ + | Care Epic Willow Specialist Name | Role | Phone | + +------+ + | Andry Deng DO | PCP | | + +------+ + Encounter Details +--------+ + + + + | Date | Type | Department | Care Team | Description | +--------+ + + + + | 05/12/ | Orders Only | [facility] | Conversion | | | 2013 | | INFECTIOUS DISEASE | Transaction, | | | | | [address] | Provider Unknown | | | | | [place], [place] | [phone] | | | | | [phone] | (Fax) | | | | | [phone] | | | +--------+ + + + [...] | EXTERNAL LAB: CBC | Routin | 05/12/2014 | | Results for this | | | e | 12:00 AM | | procedure are in the | | | | PST | | results section. | + +--------+ + + + | SEDIMENTATION RATE, | Routin | 05/12/2014 | | Results for this | | AUTOMATED | e | 12:00 AM | | procedure are in the | | | | PST | | results section. | + +--------+ + + + | C-REACTIVE PROTEIN | Routin | 05/12/2014 | | Results for this | | | e | 12:00 AM | | procedure are in the | | | | PST | | results section. | + +--------+ + + + documented in this encounter Results Sedimentation rate, automated (05/12/2014 12:00 AM PST) + +--------+ + + + | Component | Value | Ref Range | Performed | Pathologist | | | | | At | Signature | + +--------+ + + + | Sed Rate | 16 (A) | 0 - 15 | EXTERNAL | | | | | | LAB | | + +--------+ + + + + + | Specimen | + + | Blood specimen | | (specimen) | + + + +---------+ + + | Performing | Address | City/State/Zipcode | Phone Number | | Organization | | | | + +---------+ + + | EXTERNAL LAB | | | | + +---------+ + + External Lab: CBC (05/12/2014 12:00 AM PST) + + + + + + | Component | Value | Ref Range | Performed | Pathologist | | | | | At | Signature | + + + + + + | WBC | 5.8 | 10 | EXTERNAL | | | | | | LAB | | + + + + + + | Non- | 4.44 | 10 | EXTERNAL | | | Red Blood | | | LAB | | | Cells | | | | | | Counted | | | | | + + + + + + | Hemoglobin | 13.0 (A) | 13.5 - 18.0 | EXTERNAL | | | | | g/dL | LAB | | + + + + + + | Hematocrit, | 40.0 (A) | 41 - 50 % | EXTERNAL | | | POC | | | LAB | | + + + + + + | MCV | 90.1 | fL | EXTERNAL | | | | | | LAB | | + + + + + + | MCH | 29 | pg | EXTERNAL | | | | | | LAB | | + + + + + + | MCHC | 33 | g/dL | EXTERNAL | | | | | | LAB | | + + + + + + | Platelet | 265 | K/ L | EXTERNAL | | | Count | | | LAB | | | Plasma | | | | | + + + + + + | RDW-CV | 16.1 (A) | 10.5 - 15.0 % | EXTERNAL | | | | | | LAB | | + + + + + + | MPV | | fL | EXTERNAL | | | | | | LAB | | + + + + + + | Differentia | | | EXTERNAL | | | l Type | | | LAB | | + + + + + + | % Segmented | 55.1 | % | EXTERNAL | | | | | | LAB | | | Neutrophils | | | | | + + + + + + | % | 20.2 (A) | 24 - 44 % | EXTERNAL | | | Lymphocytes | | | LAB | | + + + + + + | % Monocytes | 7.8 | % | EXTERNAL | | | | | | LAB | | + + + + + + | % | 15.0 (A) | 0 - 6 % | EXTERNAL | | | Eosinophils | | | LAB | | + + + + + + | % Basophils | 1.9 | % | EXTERNAL | | | | | | LAB | | + + + + + + | Absolute | | / L | EXTERNAL | | | Segmented | | | LAB | | | Neutrophils | | | | | + + + + + + | Absolute | | / L | EXTERNAL | | | Lymphocytes | | | LAB | | + + + + + + | Absolute | | / L | EXTERNAL | | | Monocytes | | | LAB | | + + + + + + | Absolute | | / L | EXTERNAL | | | Eosinophils | | | LAB | | + + + + + + | Absolute | | [...] | + +---------+ + + C-Reactive Protein (05/12/2014 12:00 AM PST) + + + + + + | Component | Value | Ref Range | Performed | Pathologist | | | | | At | Signature | + + + + + + | CRP | 11.2 (A) | 0 - 5 mg/L | EXTERNAL | | | | | [...]
--- OUTSIDE RECORDS SUMMARY | ~2019-12-30 | XMS | Encounter Summary ---
Demographics + + + | Address | [address] | | | [place] [address] | + + + | Home Phone | | + + + | Preferred Language | Unknown | + + + | Marital Status | Single | + + + | Christian Affiliation | Unknown | + + + | Race | or | + + + | Ethnic Group | Not or | + + + Author + + + | Author | [facility] | + + + | Organization | [facility] [employer] [facility] | + + + | Address | [...] Team Providers + +------+ + | Care Special Collections Librarian Name | Role | Phone | + +------+ + | Berenice Hicks | PCP | | + +------+ + Reason for Visit + + + | Reason | Comments | + + + | Pre Transplant | Intake | | Workup | | + + + Encounter Details +--------+ + + + + | Date | Type | Department | Care Team | Description | +--------+ + + + + | 09/29/ | Telephone | Clinical | Makenna Sheldon, | Pre Transplant | | 2020 | | Transplant Services | RN [address] | Workup (Intake) | | | | [address] | [address] | | | | | [place], | [place], [place] | | | | | [place] [address] | [address] | | | | | [phone] | | | +--------+ + + + [...] Not on filedocumented as of this encounter Results DRUG SCREEN 9 PANEL, S/P,W/REFLEX QUANT (11/11/2019 [...] | | | | | determined by [facility] | | | | | | Laboratories. See | | | | | | Compliance Statement B: | | | | | | [employer]/CSPerformed | | | | | | by 5[employer] Media,500 | | | | | | Josef Montoya, [facility] [place] | | | | | | [address] | | | | | | [phone].[employer]. | | | | | | com, Mio Jauregui MD, | | | | | | Lab. Director | | | | + + + + + + | AMPHETAMINE | Negative | Cutoff 30 ng/mL | [facility] | | | S, S/P, | | [...] [facility] | [address] | [place], [place] | | | UNIV PTH - INTFC | | [address] | | + + + + + [...] | | | | | determined by [facility] | | | | | | Laboratories. See | | | | | | Compliance Statement B: | | | | | | [employer]/CSPerformed | | | | | | by [employer] Media,500 | | | | | | [facility] | | | | | | [address] | | | | | | [phone].[employer]. | | | | | | [facility] MD, | | | | | | Lab. Director | | | | + + + + + + | COTININE | <2 | ng/mL | [facility] | | | | | [...] [facility] | [address] | [place], [place] | | | UNIV PTH - INTFC | | [address] | | + + + + + [...] + | [facility] | [address] | [place] [address] | | | SERVICES, CORE | [address] [...] | [facility] | | considered for monitoring jail glycemic control in patients with: | LABORATORY [...] | + + + + + | [facility] | [address] | [place] [address] | | | SERVICES, SPECIAL | [address] | | | | IMM + [...] [facility] | | | NIL | by [employer]min Media,500 | | REG UNIV | | | | Josef Montoya [facility] [place] | | PTH - [facility]FC | | | | [address] | | | | | | [phone].[employer] Pty Ltdlab. | | | | | | Mio [...] (http://www.cdc.gov/mmwr | | | | | | /preview/mmwrhtml/gq6590 | | | | | | a1.htm), [...] [facility] | [address] | [place], [place] | | | UNIV PTH - INTFC | | [address] | | + + + + + [...] by | | | | | | [employer] Media,500 | | | | | | Josef Montoya, [facility] [place] | | | | | | [address] | | | | | | [phone].[employer]. | | | | | | sharlene, Mio Jauregui MD, | | | | [...] [facility] | [address] | [place], [place] | | | UNIV PTH - INTFC | | [address] | | + + + + + ANY QURIOZ VIRUS AB VCA IGG, SERUM (11/11/2019 2:07 PM PDT) + + + + + + | Component | Value | Ref Range | Performed | Pathologist | | | | | At | Signature | + + + + + + | NAY | >750.0 (H)Comment: | 0.0 - 21.9 U/mL | [facility] | | | QUIROZ VIRUS | INTERPRETIVE | | REG UNIV | | | AB VCA IGG | INFORMATION: | | PTH - INTFC | | | | Nay-Quiroz Virus | | | | | | [...] | | | | | | Laboratories,[address] [facility] | | | | | | [facility],[place] [address] | | | | | | [phone].aruplab. | | | | | | Mio [...] [facility] | [address] | [place], [place] | | | UNIV PTH - INTFC | | [address] | | + + + + + [...] | TESTING IS NOT INDICATED | | [place] | | | | OR USEFUL TO [...] + | [facility] | [address] | [place] [address] | | | [facility] | | | | + + [...] by | | | | | | 5min Media,500 | | | | | | Josef Montoya, [facility] [place] | | | | | | [address] | | | | | | [phone].Exit Games. | | | | | | Mio [...] [facility] | [address] | [place], [place] | | | UNIV PTH - INTFC | | [address] | | + + + + + [...] + | [facility] | [address] | [place] [address] | | | SERVICES, CORE | PARK [...] not detected. The performance of the | [facility] | | POULTRY BONER HIV Combo test, with or without confirmation, was not | LABORATORY | | tested in pediatric patients less than 2 years of age. NIH | SERVICES, | | guidelines recommend virologic [...] | + + + + + | [facility] | [address] | [place] [address] | | | SERVICES, SPECIAL | PARK [...] + | [facility] | [address] | [place] [address] | | | SERVICES, CORE | PARK [...] | | | LABORATORY | | | [facility] | + + + + + + + + | Performing | Address | City/State/Zipcode | Phone Number | | Organization | | | | + + + + + | [facility] | [address] | [place] [address] | | | SERVICES, [facility] | [address] | | | + [...] | + + + + + | [facility] | [address] | [place] [address] | | | SERVICES, CORE | [address] [...] + | [facility] | [address] | [place] [address] | | | [place] | | | | + + + [...] + | [facility] - | [address] | [place] [address] | | | [place] | | | [...] by | | | | | | 5min Media,500 | | | | | | Josef Montoya, [facility] [place] | | | | | | [address] | | | | | | [phone].Exit Games. | | | | | | [facility] center[facility] MD, | | | | | | [...] [facility] | [address] | [place], [place] | | | UNIV PTH - INTFC | | [address] | | + + + + + [...] by | | | | | | 5min Media,500 | | | | | | [place] | | | | | | [address] | | | | | | [phone].Senath Pty Ltdlab. | | | | | | Mio [...] [facility] | [address] | [place], [place] | | | UNIV PTH - INTFC | | [address] | | + + + + + [...] | + + + + + | [facility] | [address] | [place] [address] | | | [facility] | [address] | | | + + + + + VINAY KANG (11/11/2019 2:07 PM PDT) + + + [...] | [facility] | | | GRAVITY | [place] performed by | | LABORATORY | | [...] + | [facility] | [address] | [place] [address] | | | SERVICES, CORE | [address] [...] mech. valves (2.5 - 3.5) INR | UNA, CORE | + + + + + + + + | Performing | Address | City/State/Zipcode | Phone Number | | Organization | | | | + + + + + | [facility] | [address] | [place] [address] | | | SERVICES, [place] | [address] | | | + [...] Range: (75 - 120) sec Heparin | UNA, CORE | | levels of 0.35 - 0.7 U/mL | | + + + + + + + + | Performing | Address | City/State/Zipcode | Phone Number | | Organization | | | | + + + + + | [facility] | [address] | [place] [address] | | | [facility] | [address] | | | + [...] + | [facility] | [address] | [place] [address] | | | SERVICES, CORE | PARK [...] | + + + + + | [facility] | [address] | [place] [address] | | | SERVICES, CORE | [address] [...] | + +---------+ + + + | BILI D CMNT | No Hemo | | [facility] [...] + | [facility] | [address] | [place] [address] | | | SERVICES, CORE | PARK [...] | + + + + + | [facility] | [address] | [place] [address] | | | SERVICES, CORE | [address] [...] + | [facility] | [address] | [place] [address] | | | SERVICES, CORE | PARK [...] | + + + + + | [facility] | [address] | [place] [address] | | | SERVICES, CORE | PARK [...] | | | LABORATORY | | | [facility] | | | SERVICES, | | | [...] MDRD equation recommended by the National | [facility] | | Kidney Disease Education Program. Estimated [...] + | [facility] | [address] | [place] [address] | | | SERVICES, CORE | [address] [...] + | [facility] - | [address], | [place] [address] | | | IMMUNOGENETICS/TRANS | [address] [...] + + | [facility] - | [address] | [place] [address] | | | IMMUNOGENETICS/TRANS | [address] | | | | PLANT LABORATORY | | | | + + + + + LIT HLA-B LOW RES-KE (11/11/2019 2:07 PM PDT) + + | Specimen | + + | Blood - Blood | | (substance) | + + + + + + + | Performing | Address | City/State/Zipcode | Phone Number | | Organization | | | | + + + + + | [facility] - | [address] | [place] [address] | | | IMMUNOGENETICS/TRANS | [address] | | | | [facility] LAB[facility] | | | | + + + + + LIT HLA-C LOW RES-KE (11/11/2019 2:07 PM PDT) + + | Specimen | + + | Blood - Blood | | (substance) | + + + + + + + | Performing | Address | City/State/Zipcode | Phone Number | | Organization | | | | + + + + + | [facility] - | [address] | [place] [address] | | | IMMUNOGENETICS/TRANS | [address] | | | | [facility] LABORATORY | | | | + + + + + LIT HLA-DR LOW TODD (11/11/2019 2:07 PM PDT) + + | Specimen | + + | Blood - Blood | | (substance) | + + + + + + + | Performing | Address | City/State/Zipcode | Phone Number | | Organization | | | | + + + + + | [facility] - | [address] | [place], [place] | | | IMMUNOGENETICS/TRANS | [address] [...] + + + | [facility] - | [address] | [place], [place] | | | IMMUNOGENETICS/TRANS | [address] [...] + | [facility] - | [address], | [place], [place] | | | IMMUNOGENETICS/TRANS | [address] [...] + + | [facility] - | [address] | [place] [address] | | | IMMUNOGENETICS/TRANS | [address] | | | | [facility] LAB[facility] | | | | + + + + + LIT HLA-DQ LOW RES-KE (11/11/2019 2:07 PM PDT) + + | Specimen | + + | Blood - Blood | | (substance) | + + + + + + + | Performing | Address | City/State/Zipcode | Phone Number | | Organization | | | | + + + + + | [facility] - | [address] | [place] [address] | | | IMMUNOGENETICS/TRANS | [address] | | | | PLANT LABORATORY | | | | + + + + + documented in this encounter Visit Diagnoses + + | Diagnosis | + + | Type 2 diabetes mellitus with ESRD (end-stage renal disease) (HCC) - Primary Type II | | or unspecified type diabetes mellitus with renal manifestations, not stated as | | uncontrolled | + + documented in this encounter
--- OUTSIDE RECORDS SUMMARY | ~2019-12-30 | XMS | Encounter Summary ---
Demographics + + + | Address | [address] | | | [place] [address] | + + + | Home Phone | | + + + | Preferred Language | Unknown | + + + | Marital Status | Unknown | + + + | Yazdanism Affiliation | [id number] | + + + | Race | Unknown | + + + | Ethnic Group | Unknown | + + + Author + + + | Author | [facility] | | | and [place] | + + + | Organization | [facility] | | [...] Team Providers + +------+ + | Care Shingler Name | Role | Phone | + +------+ + PCP | Unavailable | + +------+ + Encounter Details +--------+ + + + + | Date | Type | Department | Care Team | Description | +--------+ + + + + | 10// | Hospital | [facility] | Oskar Meyer MD | | | 2014 | Encounter | [facility] | [address] | | | | | [address] | [place], [place] | | | | | [place], [place] | [address] | | | | | [address] | [phone] | | | | | [phone] | | | +--------+ + + + [...] Progress Notes Conversion Transaction, Provider Unknown - 03/30/2014 1:20 PM PDTFormatting of this note m ight be different from the original. Nurse Progress Note by Tariq Rosenthal RN at 03/30/14 1320 Author: Tariq Rosenthal RN Service: (none) Author Type: Registered Nurse Filed: 03/30/14 1321 Date of Service: 03/30/14 1320 Status: Signed Agile Qa Tester: Tariq Rosenthal RN (Registered Nurse) Thrill and Bruit present CRISTI drain in RUE. Dressing CDI scant amt of serosanguinous drainage . onver quique Transaction, Provider Unknown - 03/30/2014 1:00 PM PDT Progress Notes by Yahaira Diaz RN at 03/30/14 1300 Author: Yahaira Diaz RN Service: (none) Author Type: Registered Nurse Filed: 03/30/14 1349 Date of Service: 03/30/14 1300 Status: Signed Agile Qa Tester: Yahaira Diaz RN (Registered Nurse) Asked Dr. Meyer to check AV Fistula site. I stated can palpate Bruit faintly thru dressing. A thrill is loud audible. He looked at patient and stated that was acceptable. Yahaira chacon Kerline Hernandez RPH - 03/30/2014 12:59 PM PDTFormatting of this note might be different from the or iginal. Progress Notes by Kerline Edgar RPH at 03/30/14 1250 Author: Kerline Edgar RPH Service: (none) Author Type: Pharmacist Filed: 03/30/14 1095 Date of Service: 03/30/14 1259 Status: Signed Agile Qa Tester: Kerline Edgar [facility] (Pharmacist) Renal Dosing Monitoring: Enrique Potter 49 y.o. male Pharmacy dosing for renal function per Dr. Meyer Plan per protocol: HD patient No medications need to be renally adjusted at this time Pharmacy will continue monitoring patient for appropriate dosing per renal function. 03/30/2014 12:58 PM Pharmacist: KERLINE EDGAR documente d in this encounter H&P Notes Teresita Toure ARNP - 03/30/2014 10:28 AM PDTFormatting of this note might be different f rom the original. H&P by DARRELL Medellin at 03/30/14 1028 Author: DARRELL Medellin Service: Vascular Surgery Author Type: Advanced Registered N urse Practitioner Filed: 03/30/14 1028 Date of Service: 03/30/14 1028 Status: Signed Agile Qa Tester: DARRELL Medellin (Advanced Registered Nurse Practitioner) [facility] Service: Vascular Surgery Pre-Operative History & Physical DIAGNOSIS: ESRD INDICATION: SAME PROCEDURE: Right arm AV fistula superficialization CHIEF COMPLAINT: deep AV fistula History Obtained From: patient HISTORY OF PRESENT ILLNESS The patient is a 48 y.o. male with significant past medical history of ESRD, HTN, IVDU, and DVT who presented with a need for new fistula creation. Currently dialyzing via tunnel cath eter. Had a previous basilic vein transposition which clotted off due to resistant outflow o bstruction. We performed a venogram to evaluate for outflow obstruction prior to fistula cre ation on the right arm which revealed no obstruction therefore a right arm brachiobasilic fi stula was created. This has matured well and we have discussed superficialization of this f or use and patient would like to proceed. REVIEW OF SYSTEMS Review of Systems Comprehensive [...] EGD; Surgeon: John Singleton MD; Location: [facility] ENDOSCOPY; Se rvice: Gastroenterology; Laterality: N/A; Av fistula placement 05/06/2012 Procedure: AV FISTULA; Surgeon: Oskar Meyer MD; Location: [facility] OR; Service: Vascul ar; Laterality: Left; Left arm possible right Unlisted procedure arthroscopy shoulder rt , ligaments Knee arthroscopy 07/07/2012 Procedure: KNEE - ARTHROSCOPY; Surgeon: Favio Raaz MD; Location: [facility]; [facility]; Laterality: Right; After 1530 Catheter removal 07/07/2012 Procedure: DIALYSIS CATHETER REMOVAL; Surgeon: Oskar Meyer MD; Location: [facility] BEDSIDE [facility] OCEDURE; Service: General; Laterality: Right; perm cath Dialysis fistula creation 07/07/2012 Procedure: DIALYSIS CATHETER INSERTION; Surgeon: Oskar Meyer MD; Location: [facility] BED[facility] PROCEDURE; Service: General; Laterality: Left; temporary dialysis catheter Av fistula repair 07/11/2012 Procedure: AV FISTULA GRAFT REPAIR/REVISION; Surgeon: Oskar Meyer MD; Location: [facility] OR; Service: Vascular; Laterality: Left; Superficialization of brachiobasilic fistula and right IJ perm cath insertion Dialysis fistula creation 07/11/2012 Procedure: DIALYSIS CATHETER INSERTION; Surgeon: Oskar Meyer MD; Location: [facility] OR; Service: Vascular; Laterality: Left; removed dialysis catheter from left neck and placed new on in left chest, attempted in right neck but unable to place Av fistula placement Right 02/09/2014 Procedure: AV FISTULA; Surgeon: Oskar Meyer MD; Location: [facility] MAIN OR; Service: Vascul ar; [...] TABS Take 1 tablet by mouth daily. fluticasone-salmeterol (ADVAIR DISKUS) 250-50 MCG/DOSE Inhale [...] mg by mouth 2 (two) times daily. vancomycin (VANCOCIN) IVPB Inject 750 mg into the vein 3 (three) times a week. 750 mg I V with hemodialysis 12 Doses 0 Family History Problem Relation Age of Onset [...] KIDS. CURRENTLY UNEMPLOYED, BEFOR E WORKED AT [employer] [place] [employer]. Quit METHAMPHETAMINES PER PATIENT after t he ARF in mar 2012. FATHER HAS COLON CANCER, HEART DISEASE, MOTHER 15 YEARS AGO. NO FH KIDNEY PROBLEMS. PHYSICAL EXAM Vital Signs: BP 134/66 | Pulse 91 | Temp(Src) 97.4 F (36.3 C) (Temporal) | Resp 20 | Ht 1.702 m (5' 7") | Wt 74 kg (163 lb 2.3 oz) | BMI 25.55 kg/m2 | SpO2 100% Physical Exam Vitals reviewed. Constitutional: Patient appears well-developed and well-nourished. HENT: Head: Normocephalic and atraumatic. Mouth/Throat: Oropharynx is clear and moist. Cardiovascular: Normal rate and regular rhythm. Pulmonary/Chest: Effort normal and breath sounds normal. Abdominal: Soft. Bowel sounds are normal. Musculoskeletal: Normal range of motion. Neurological: Patient is alert and oriented to person, place, and time. Skin: Skin is warm and dry. Vascular: strong thrill to right arm AV fistula. Palp radial pulse DATA CBC: Lab Results Component Value Date WBC 5.5 03/30/2014 RBC 3.83* 03/30/2014 HGB 11.5* 03/30/2014 HCT 35.1* 03/30/2014 MCV 91.8 03/30/2014 MCH 30.2 03/30/2014 MCHC 32.9 03/30/2014 RDW 54.3* 03/30/2014 PLT 344 03/30/2014 MPV 6.1 03/30/2014 DIFFTYPE AUTOMATED 03/30/2014 BMP: Lab Results Component Value Date NA 140 03/30/2014 K 4.8 03/30/2014 CL 107 03/30/2014 CO2 31 03/30/2014 ANIONGAP 7 03/30/2014 GLUF 89 03/30/2014 BUN 6* 03/30/2014 CREATININE 4.60* 03/30/2014 BCR 1 03/30/2014 CA 8.5 03/30/2014 CA 6.1* 04/02/2012 EGFR 14* 03/30/2014 PT/INR: Lab Results Component Value Date INR 1.0 03/30/2014 PTT: Lab Results Component Value Date APTT 26 03/30/2014 [APTT} PROBLEM LIST Patient Active Problem List Diagnosis Vitamin D deficiency Secondary hyperparathyroidism (of renal origin) Hypothyroidism Hypoalbuminemia Diabetes mellitus with ESRD (end-stage renal disease) Obesity (BMI 30-39.9) HTN (hypertension) ESRD (end stage renal disease) on dialysis Anemia of chronic kidney failure Gout PUD (peptic ulcer disease) Malnutrition of moderate degree Steroid-induced hyperglycemia Pneumonia, organism unspecified Gram-positive cocci bacteremia ASSESSMENT & PLAN 1. Patient is a 49 y.o. male with above specified procedure planned. 2. Procedure options, risks, benefits and alternatives reviewed with patient who express( es) understanding. Any and all questions were answered to their satisfaction. Primary Care Physician: [facility] DARRELL Medellin 2014 *CORE MEASURES REMINDER: If the patient has a known or suspected infection prior to surger y, please add diagnosis to the problem list (consider: Infection 136.9). documented in this encounter Miscellaneous Notes Op Note - Oskar Meyer MD - 03/30/2014 11:38 AM PDTFormatting of this note might be differen t from the original. Op Note by Oskar Meyer MD at 03/30/14 3197 Author: Oskar Meyer MD Service: Vascular Surgery Author Type: Physician Filed: 03/30/14 1143 Date of Service: 03/30/14 0347 Status: Signed Agile Qa Tester: Oskar Meyer MD (Physician) [facility] Service: Vascular Surgery Operative Note Pre-operative Diagnosis: ESRD and fistula too deep to access Post-operative Diagnosis: Same Procedure(s): Superficialization of right arm fistula Surgeon: Oskar Meyer MD Liquor Gallery Operator(s): DARRELL Medellin Anesthesia: General LMA Estimated Blood Loss: Less Than 50 ml Other: IV Fluids: 100 ml Indications: See pre-operative history and physical. Findings: Vein very deep. Vein was also around 5 mm in diameter. After superficializatio n, good thrill in fistula. Complications: None apparent Description of Procedure: The patient was properly identified and brought to the operating room. The patient was placed supine on the operating table. The patient underwent General L MA. The patient's right arm was then prepped and draped in the usual sterile fashion. A long itudinal incision was then made from the right axilla to the antecubital fossa. This was luke pened through the subcutaneous tissue with electrocautery. The basilic vein was identified a nd dissected. Branches of the basilic vein were ligated with 3-0 silk sutures and divided. O nce the vein was freed from the antecubital fossa to the axilla, a subcutaneous skin flap wa s then raised and the vein was then placed underneath a subcutaneous skin flap and secured u sing 3-0 Vicryl sutures. The wound was then irrigated and hemostasis was ensured. A 7 mm fla t CRISTI was brought out through a separate stab incision from the wound and secured to the skin using 3-0 nylon sutures. The deep dermal tissue was then closed with 3-0 Vicryl. The skin was then closed with 4-0 Monocryl in a subcuticular fashion. There was a strong thrill in th e fistula. At the end of the case the sponge, needle, and instrument counts were correct x2 . Mastisol and Steri-Strips were then placed on the skin and a sterile dressing was then álvaro lied. Patient was then taken to the PACU in stable condition. There were no apparent compl ications. Condition: Stable Oskar Meyer MD 03/30/2014 documented in this encoun ter Plan of Treatment Not on filedocumented as of this encounter Procedures + +--------+ + + + | Procedure Name | Priori | Date/Time | Associated Diagnosis | Comments | | | ty | | | | + +--------+ + + + | POC GLUCOSE | Routin | 03/30/2014 | | Results for this | | | e | 12:39 PM | | procedure are in the | | | | PDT | | results section. | + +--------+ + + + | POC GLUCOSE | Routin | 03/30/2014 | | Results for this | | | e | 11:56 AM | | procedure are in the | | | | PDT | | results section. | + +--------+ + + + documented in this encounter Results POC Glucose (03/30/2014 12:39 PM PDT) + + + + + + | Component | Value | Ref Range | Performed | Pathologist | | | | | At | Signature | + + + + + + | Glucose, | 181 (H)Comment: Testing | 65 - 99 mg/dL | EXTERNAL | | | Fingerstick | performed at [facility];[address] | | LAB | | | | [address];[place] | | | | | | [address] | | | | + + + + + + + + | Specimen | + + | | + + + +---------+ + + | Performing | Address | City/State/Zipcode | Phone Number | | Organization | | | | + +---------+ + + | EXTERNAL LAB | | | | + +---------+ + + POC Glucose (03/30/2014 11:56 AM PDT) + + + + + + | Component | Value | Ref Range | Performed | Pathologist | | | | | At | Signature | + + + + + + | Glucose, | 75Comment: Testing | 65 - 99 mg/dL | EXTERNAL | | | Fingerstick | performed at [facility];[address] | | LAB | | | | [address];[place], [place] | | | | | | [address] | | | | + + + [...]
--- OUTSIDE RECORDS SUMMARY | ~2019-12-30 | XMS | Encounter Summary ---
Demographics + + + | Address | [address] | | | [place] [address] | + + + | Home Phone [...] Team Providers + +------+ + | Care General Milling Superintendent Name | Role | Phone | + +------+ + PCP | Unavailable | + +------+ + Encounter Details +--------+ + + + + | Date | Type | Department | Care Team | Description | +--------+ + + + + | 12/23/ | Hospital | [facility] | Conversion | ESRD (end stage | | 2014 | Encounter | CENTER [facility] | Transaction, | renal disease) ([facility]) | | | | [address] | Provider Unknown | | | | | [place], [place] | [phone] | | | | | [address] | | | | | | [phone] | Juan Timmons MD | | | | | | [address] | | | | | | [address] [place], [place] | | | | | | [address] | | | | | | | [...] a small amount | | 0 | / | | | ointment | to affected [...] a small amount | | 0 | / | | | (XYLOCAINE JELLY) 2% | [...] documented as of this encounter H&P Notes Melvi Tate MD - 12/23/2013 12:02 PM PDTFormatting of this note might be diff erent from the original. H&P by Melvi Tate MD at 12/23/13 1202 Author: Melvi Tate MD Service: (none) Author Type: Physician Filed: 12/23/13 1202 Date of Service: 12/23/13 1202 Status: Signed Liturgical Music Director: Melvi Tate MD (Physician) Merged With [facility] Service: Interventional Radiology Pre-Operative History & Physical Date of Admission: 12/23/2013 DIAGNOSIS: ESRD INDICATION: Same PROCEDURE: Tunneled dialysis catheter placement. History Obtained From: patient HISTORY OF PRESENT ILLNESS The patient is a 48 y.o. male with significant past medical history of ESRD who presents w ith Dislodged dialysis catheter. He is here for a new tunneled dialysis catheter placement. REVIEW OF SYSTEMS Review of Systems Constitutional: Negative for fever and chills. HENT: Negative for facial swelling. Eyes: Negative for visual disturbance. Respiratory: Negative for cough and shortness of breath. Cardiovascular: Negative for chest pain. Gastrointestinal: Negative for abdominal pain. Skin: Negative for rash and wound. Neurological: Negative for weakness. Hematological: Does not bruise/bleed easily. Past Medical History Diagnosis Date Hyperlipidemia Hypertension [...] W/ EGD; Surgeon: John Singleton MD; Location: [facility]; Se rvice: Gastroenterology; Laterality: N/A; Av fistula placement 05/06/2012 Procedure: AV FISTULA; Surgeon: Oskar Meyer MD; Location: [facility] MA[facility] OR; Service: Vascul ar; Laterality: Left; Left arm possible right Unlisted procedure arthroscopy shoulder rt , ligaments Knee arthroscopy 07/07/2012 Procedure: KNEE - ARTHROSCOPY; Surgeon: Favio Raza MD; Location: [facility] MA[facility] OR; chidi: Orthopedics; Laterality: Right; After 1530 Catheter removal 07/07/2012 Procedure: DIALYSIS CATHETER REMOVAL; Surgeon: Oskar Meyer MD; Location: [facility] [place] OCEDURE; Service: General; Laterality: Right; perm cath Dialysis fistula creation 07/07/2012 Procedure: DIALYSIS CATHETER INSERTION; Surgeon: Oskar Meyer MD; Location: [facility] BED[facility] PROCEDURE; Service: General; Laterality: Left; temporary dialysis catheter Av fistula repair 07/11/2012 Procedure: AV FISTULA GRAFT REPAIR/REVISION; Surgeon: Oskar Meyer MD; Location: [facility] OR; Service: Vascular; Laterality: Left; Superficialization of brachiobasilic fistula and right IJ perm cath insertion Dialysis fistula creation 07/11/2012 Procedure: DIALYSIS CATHETER INSERTION; Surgeon: Oskar Meyer MD; Location: [facility] OR; Service: Vascular; Laterality: Left; [...] after ARF PHYSICAL EXAM Vital Signs: BP 126/76 | Pulse 95 | Temp 98 F (36.7 C) | Resp 18 | Ht 1.702 m (5' 7") | Wt 73.936 kg (163 lb) | BMI 25.52 kg/m2 | SpO2 98% Temp: [98 F (36.7 C)] 98 F (36.7 C) (12/23 1034) BP: (126)/(76) 126/76 mmHg (12/23 1034) Heart Rate: [95] 95 (12/23 1034) Resp: [18] 18 (12/23 1034) SpO2: [98 %] 98 % (12/23 1034) Height: [170.2 cm (5' 7")] 170.2 cm (5' 7") (12/23 1034) Weight: [73.936 kg (163 lb)] 73.936 kg (163 lb) (12/23 1034) BMI (Calculated): [25.6] 25.6 (12/23 1034) Physical Exam Constitutional: He is oriented to person, place, and time. He appears well-nourished. HENT: Mouth/Throat: No oropharyngeal exudate. Eyes: Pupils are equal, round, and reactive to light. Neck: Neck supple. Cardiovascular: Normal rate. Pulmonary/Chest: Effort normal. Abdominal: Soft. Musculoskeletal: He exhibits no edema. Neurological: He is alert and oriented to person, place, and time. Skin: Skin is warm and dry. DATA CBC: Lab Results Component Value Date WBC 7.9 12/23/2013 RBC 3.70* 12/23/2013 HGB 11.6* 12/23/2013 HCT 34.8* 12/23/2013 MCV 93.9 12/23/2013 MCH 31.4 12/23/2013 MCHC 33.5 12/23/2013 RDW 48.1 12/23/2013 PLT 257 12/23/2013 MPV 6.5 12/23/2013 DIFFTYPE AUTOMATED 12/23/2013 WBC: Lab Results Component Value Date WBC 7.9 12/23/2013 NEUTABSMAN 19.7* 07/06/2012 NEUTROABS 5.2 12/23/2013 NEUTROMAN 84* 07/06/2012 LYMPHOABS 1.4 07/06/2012 LYMPHOMAN 6* 07/06/2012 LYMPHSABS 1.2 12/23/2013 LYMPHOPCT 15.6 12/23/2013 MONOABSMAN 1.2* 07/06/2012 MONOMAN 5 07/06/2012 MONOPCT 13.9 12/23/2013 EOSINOABS 0.2 07/06/2012 EOSINOMAN 1 07/06/2012 EOSABS 0.4 12/23/2013 EOSPCT 4.9 12/23/2013 BASOABSMAN 0.1 05/01/2012 BASOSABS 0.0 12/23/2013 BASOSMAN 1 05/01/2012 BASOPCT 0.6 12/23/2013 PLTEST ADEQUATE 11/09/2013 BANDSPCT 2 07/06/2012 NRBC 1* 05/02/2012 METAABS 0.5* 07/06/2012 METAPCT 2* 07/06/2012 COMDIFF SLIDE SCANNED, AGREES WITH AUTOMATED RESULTS. 11/09/2013 Platelets: Lab Results Component Value Date PLT 257 12/23/2013 PT/INR: Lab Results Component Value Date INR 1.0 12/23/2013 PTT: Lab Results Component Value Date APTT 28 12/23/2013 [APTT PROBLEM LIST Active Problems: * No active hospital problems. * ASSESSMENT & PLAN 1. Patient is a 48 y.o. male with above specified procedure planned. 2. Procedure options, risks, benefits and alternatives reviewed with patient who express( es) understanding. Any and all questions were answered to their satisfaction. Moderate Sedation Presedation Assessment completed. ASA Classification: ASA 3: Patient with a severe systemic disease Mallampati Classification: II: Visibility of hard and soft palate, upper portion of tonsil s and uvula Code Status: Prior Primary Care Physician: [facility] Pelon Tate MD 12/23/2013 *CORE MEASURES REMINDER: If the patient has a known or suspected infection prior to surger y, please add diagnosis to the problem list (consider: Infection 136.9). documente d in this encounter Miscellaneous Notes Op Note - Melvi Tate MD - 12/23/2013 12:04 PM PDTFormatting of this note kel ht be different from the original. Brief Op Note by Melvi Tate MD at 12/23/13 1204 Author: Melvi Tate MD Service: (none) Author Type: Physician Filed: 12/23/13 1206 Date of Service: 12/23/131203 Status: Signed Liturgical Music Director: Melvi Tate MD (Physician) Merged With [facility] Service: Interventional Radiology Brief Op Note Pre-operative Diagnosis: ESRD Post-operative Diagnosis: Same Procedure(s): Tunneled dialysis catheter placement Surgeon: Pelon Tate MD Anesthesia: Moderate sedation Estimated Blood Loss: Less Than 50 ml Other: Not applicable Indications: See pre-operative history and physical. Findings: Right IJ completely thrombosed. Left IJ patent. Left IJ accessed. 23 cm Tunneled dialysis placed. Ready to use. Complications: None Condition: Stable See dictated operative report for full details. Pelon Tate MD 12/23/2013 documente d in this encounter Plan of [...] +--------+ + + + | EXTERNAL LAB: REBECA | Routin | 12/23/2013 | | Results [...] | | | | + + MRSA NAAT (12/23/2013 10:38 AM PDT) + + | Specimen | + + | | + + + + + | Narrative | Performed At | + + + | [facility] | EXTERNAL LAB | | Testing performed at [address];[place] [address] MRSA PCR | | | NEGATIVE Testing performed at | | | [address];[place] [address] | | + + + + +---------+ [...] | | | Patient | performed at [facility];[address] | | LAB | | | | [address];[place] | | | | | | [address] | | | | + + + [...] | performed at [facility] | | | | | | [facility];[place], [place] | | | | | | [address] | | | | + + + [...] [place] | | | | | | [address] | | | | + + + + + + | Non- | 3.70 (L)Comment: Testing | 4.20 - 5.70 | EXTERNAL | | | Red Blood | performed at [facility];[address] | M/uL | LAB | | | Cells | [address];[place] | | | | | Counted | [id number] | | | | + + + + + + | Hemoglobin | 11.6 (L)Comment: Testing | 13.2 - 17.0 | EXTERNAL | | | | performed at [facility];[address] | g/dL | LAB | | | | [address];[place] | | | | | | [address] | | | | + + + + + + | Hematocrit, | 34.8 (L)Comment: Testing | 39.0 - 50.0 % | EXTERNAL | | | POC | performed at [facility];[address] | | LAB | | | | [address];[place] | | | | | | [address] | | | | + + + + + + | MCV | 93.9Comment: Testing | 80.0 - 100.0 fl | EXTERNAL | | | | performed at [facility];[address] | | LAB | | | | [address];[place] | | | | | | [address] | | | | + + + + + + | MCH | 31.4Comment: Testing | 27.0 - 34.0 pg | EXTERNAL | | | | performed at [facility];[address] | | LAB | | | | [address];[place] | | | | | | [address] | | | | + + + + + + | MCHC | 33.5Comment: Testing | 32.0 - 35.5 | EXTERNAL | | | | performed at [facility];[address] | g/dL | LAB | | | | [address];[place] | | | | | | [address] | | | | + + + + + + | RDW-CV | 48.1Comment: Testing | 37 - 53 fl | EXTERNAL | | | | performed at [facility];[address] | | LAB | | | | [address];[place] | | | | | | [address] | | | | + + + + + + | Platelet | 257Comment: Testing | 150 - 400 K/uL | EXTERNAL | | | Count | performed at [facility];[address] | | LAB | | | Plasma | [address];[place] | | | | | | [address] | | | | + + + + + + | MPV | 6.5Comment: Testing | fl | EXTERNAL | | | | performed at [facility];[address] | | LAB | | | | [address];[place] | | | | | | [address] | | | | + + + + + + | Differentia | AUTOMATEDComment: | | EXTERNAL | | | l Type | Testing performed at | | LAB | | | | [facility];[address];[place] [address] | | | | + + + + + + | % Segmented | 65.0Comment: Testing | % | EXTERNAL | | | | performed at [facility];[address] | | LAB | | | Neutrophils | [address];[place] | | | | | | [address] | | | | + + + + + + | % | 15.6Comment: Testing | % | EXTERNAL | | | Lymphocytes | performed at [facility];[address] | | LAB | | | | [address];[place] | | | | | | [address] | | | | + + + + + + | % Monocytes | 13.9Comment: Testing | % | EXTERNAL | | | | performed at [facility];[address] | | LAB | | | | [address];[place] | | | | | | [address] | | | | + + + + + + | % | 4.9Comment: Testing | % | EXTERNAL | | | Eosinophils | performed at [facility];[address] | | LAB | | | | [address];[place] | | | | | | [address] | | | | + + + + + + | % Basophils | 0.6Comment: Testing | % | EXTERNAL | | | | performed at [facility];[address] | | LAB | | | | [address];[place] | | | | | | [address] | | | | + + + + + + | Absolute | 5.2Comment: Testing | 1.9 - 7.4 K/uL | EXTERNAL | | | Segmented | performed at [facility];[address] | | LAB | | | Neutrophils | [address];[place] | | | | | | [address] | | | | + + + + + + | Absolute | 1.2Comment: Testing | 1.0 - 3.9 K/uL | EXTERNAL | | | Lymphocytes | performed at [facility];[address] | | LAB | | | | [address];[place] | | | | | | [address] | | | | + + + + + + | Absolute | 1.1 (H)Comment: Testing | 0 - 0.8 K/uL | EXTERNAL | | | Monocytes | performed at [facility];[address] | | LAB | | | | [address];[place] | | | | | | [address] | | | | + + + + + + | Absolute | 0.4Comment: Testing | 0 - 0.5 K/uL | EXTERNAL | | | Eosinophils | performed at [facility];[address] | | LAB | | | | [address];[place] | | | | | | [address] | | | | + + + + + + | Absolute | 0.0Comment: Testing | 0 - 0.1 K/uL | EXTERNAL | | | Basophils | performed at [facility];[address] | | LAB | | | | [address];[place] | | | | | | [address] | | | | + + + [...] [place] | | | | | | [address] | | | | + + + + + + | K | 3.5Comment: Testing | 3.5 - 4.9 | EXTERNAL | | | | performed at [facility];[address] | mmol/L | LAB | | | | [address];[place] | | | | | | [address] | | | | + + + + + + | Cl | 88 (L)Comment: Testing | 99 - 109 mmol/L | EXTERNAL | | | | performed at [facility];[address] | | LAB | | | | [address];[place] | | | | | | [address] | | | | + + + + + + | CO2 | 30Comment: Testing | 23 - 32 mmol/L | EXTERNAL | | | | performed at [facility];[address] | | LAB | | | | [address];[place] | | | | | | [address] | | | | + + + + + + | Anion Gap | 16Comment: Testing | 5 - 20 mmol/L | EXTERNAL | | | | performed at [facility];[address] | | LAB | | | | [address];[place] | | | | | | [address] | | | | + + + + + + | Glucose, | 101 (H)Comment: Testing | 65 - 99 mg/dL | EXTERNAL | | | Fasting | performed at [facility];[address] | | LAB | | | | [address];[place] | | | | | | [address] | | | | + + + + + + | BUN | 37 (H)Comment: Testing | 8 - 25 mg/dL | EXTERNAL | | | | performed at [facility];[address] | | LAB | | | | [address];[place] | | | | | | [address] | | | | + + + + + + | Creatinine | 9.47 (H)Comment: Testing | 0.70 - 1.30 | EXTERNAL | | | | performed at [facility];[address] | mg/dL | LAB | | | | [address];[place] | | | | | | [address] | | | | + + + + + + | BUN/Creatin | 4Comment: Testing | | EXTERNAL | | | ine Ratio | performed at [facility];[address] | | LAB | | | | [address];[place] | | | | | | [address] | | | | + + + + + + | Calcium | 8.2 (L)Comment: Testing | 8.5 - 10.2 | EXTERNAL | | | | performed at [facility];[address] | mg/dL | LAB | | | | [address];[place] | | | | | | [address] | | | | + + + [...] | | at [facility];[address];[place] [address] | | | | + + + [...]
--- OUTSIDE RECORDS SUMMARY | ~2019-12-30 | XMS | Clinical Summary ---
Demographics + + + | Address | [address] | | | [place] [address] | + + + | Home Phone | | + + + | Preferred Language | Unknown | + + + | Marital Status | Single | + + + | Yazdanism Affiliation | Unknown | + + + | Race | or | + + + | Ethnic Group | Not or | + + + Author + + + | Author | [facility] | + + + | Organization | [facility] | + + + | Address | [...] Providers + +------+ + | Care New Vehicle Sales Consultant Name | Role | Phone | + +------+ + | Berenice Hicks | PCP | | + +------+ + Source Comments DIO is fully live on both EpicCare Ambulatory and EpicCare InPatient.[facility] Allergies + + + + + + | Active Allergy | Reactions | Severity | Noted | Comments | | | | | Date | | + + + + + + | Azithromycin | Rash | Medium | 04/28/20 | Unknown Unknown | | | | | 16 | | + + + + + + | Latex | Rash | Low | 02/24/20 | Skin "melted" off | | | | | 17 | Skin "melted" off | | | | | | | + + + + + + | Lisinopril | Hives | Medium | 04/30/20 | "makes me sweat | | | | | 12 | and knocked me out" | | | | | | "makes me sweat and | | | | | | knocked me out" | + + + + + + | Penicillins | Hives, Rash | Medium | 06/06/20 | Unknown- not | | | | | 10 | sure 10/08/12: | | | | | | Patient tolerated | | | | | | Ceftriaxone during | | | | | | previous admissions. | | | | | | Rash on fingers | | | | | | and hands Unknown- | | | | | | not sure | | | | | | 10/08/12: Patient | | | | | | tolerated | | | | | | Ceftriaxone during | | | | | | previous admissions. | | | | | | Rash on fingers | | | | | | and hands | + + + + + + Medications + + + +---------+------+------+-------+ | Medication | Sig | Dispensed | Refills | Star | End | Statu | | | | | | t | Date | s | | | | | | Date | | | + + + +---------+------+------+-------+ | acetaminophen 325 | Take 650 mg by mouth | | 0 | | | Activ | | mg oral tablet | every 6 hours as | | | | | e | | | needed for Pain. | | | | | | + + + +---------+------+------+-------+ | albuterol 90 | Inhale 2 puffs into | | 0 | 09/1 | | Activ | | mcg/actuation | the lungs every 4 | | | 4/20 | | e | | inhalation HFA | (four) hours as | | | 12 | | | | aerosol inhaler | needed for Wheezing. | | | | | | + + + +---------+------+------+-------+ | allopurinoL 100 mg | Take 100 mg by mouth | | 0 | 09/1 | | Activ | | oral tablet | daily. Indications: | | | 420 | | e | | | Primary Gout | | | 12 | | | + + + +---------+------+------+-------+ | amLODIPine 10 mg | Take 10 mg by mouth | | 0 | | | Activ | | oral tablet | Daily. | | | | | e | + + + +---------+------+------+-------+ | aspirin EC 81 mg | Take 81 mg by mouth. | | 0 | 09/1 | | Activ | | oral tablet,delayed | | | | 420 | | e | | release (DR/EC) | | | | 12 | | | + + + +---------+------+------+-------+ | carvediloL 3.125 | Take 2 tablets by | | 0 | 02/0 | | Activ | | mg oral tablet | mouth 2 (two) times | | | /20 | | e | | | daily with meals. | | | 18 | | | + + + +---------+------+------+-------+ | ergocalciferol | Take 50,000 Units by | | 0 | 09/1 | | Activ | | 50,000 unit oral | mouth. | | | 20 | | e | | capsule | | | | 12 | | | + + + +---------+------+------+-------+ | fluticasone | Inhale 1 puff into | | 0 | 05/0 | | Activ | | propion-salmeteroL | the lungs 2 (two) | | | 7/20 | | e | | 250-50 mcg/dose | times daily. | | | 14 | | | | inhalation blister | | | | | | | | with device | | | | | | | + + + +---------+------+------+-------+ | Lanthanum 1,000 mg | | | 0 | 03/1 | | Activ | | oral | | | | 9/20 | | e | | tablet,chewable | | | | 20 | | | + + + +---------+------+------+-------+ | levothyroxine 75 | Take 75 mcg by mouth | | 0 | | | Activ | | mcg oral tablet | every morning | | | | | e | | | (before breakfast). | | | | | | + + + +---------+------+------+-------+ | warfarin 2.5 mg | | | 0 | 05 | | Activ | | oral tablet | | | | 4/20 | | e | | | | | | 20 | | | + + + +---------+------+------+-------+ Active Problems + + + | Problem | Noted Date | + + + | Chronic anticoagulation | 12/16/2019 | + + + + + | Overview: Due to SVC stenting in 2016 | + + + + + | Secondary hypertension due to renal disease | 12/13/2019 | + + + + + | Overview: Formatting of this note might be different from the | | original.On Amlodipine and carvedilolBP Readings from Last 3 | | Encounters: 12/16/19 155/72 | |BP Readings from Last 3 Encounters: | |12/16/19 155/72 | + + + + + | RED CELL ANTIBODIES - allow additional time for crossmatch | 11/12/2019 | + + + + + | Overview: Patient is sensitized against red cell antigen "K". | | Approximately 90% of units are expected to be compatible. Allow | | at least 2-3 hours for completion of crossmatch. | + + + + + | SVC syndrome | 11/10/2019 | + + + + + | Overview: SVC syndrome 02/2017:BEATRIZ and R subclavian thrombosis | | s/p Prior stent to R subclavian veinCT at [facility] showed tip of new | | subclavian HD cath in the R subclavian/SVC stent that caused | | occlusion of that stent and SVC syndrome. Was intubated at [facility] | | given concern for upper aiway edema and transferred here. L sided | | tunneled line removed and IR did baloon angioplasty of the R | | subclavian stent and SVC with good flow. | + + + + + | History of polysubstance abuse | 11/10/2019 | + + + + + | Overview: Amphetamine and other psychostimulant dependence, | | continuous 04/02/2012 Quit in 2012 | |Quit in 2012 | + + + + + | Staphylococcus aureus bacteremia | 11/10/2019 | + + + + + | Overview: MRSA infection 01/2018 | | Treated with Vancomycin x 6 weeks. | + + + + + | History of peptic ulcer disease | 11/10/2019 | + + + + + | Overview: 2012 GIB requiring transfusions | + + + + + | Gout, unspecified | 11/10/2019 | + + + + + | Overview: | + + + + + | Obesity, unspecified | 11/10/2019 | + + + | Chronic obstructive asthma | 11/10/2019 | + + + + + | Overview: On inhalers. Denied prior mechanical ventilation. | + + + + + | Chronic systolic (congestive) heart failure | 11/10/2019 | + + + | History of blood transfusion | 11/10/2019 | + + + + + | Overview: 2012 | + + + + + | DVT (deep venous thrombosis) | 11/10/2019 | + + + + + | Overview: Per chart review X 3 | + + + + + | H/O arthroscopy of knee | 11/10/2019 | + + + | CKD (chronic kidney disease) requiring chronic dialysis | 04/10/2012 | + + + + + | Overview: Biopsy proven DM | | | | End Stage Renal Disease 04/10/2012 current modality in center HD | + + + +---+ | Type 2 diabetes mellitus with ESRD (end-stage renal disease) | | + +---+ + + | Overview: Onset of diabetes: ARMAND NEEDLE CORE BIOPSY | | (04/10/2012):- SEVERE NODULAR AND GLOBAL | | GLOMERULOSCLEROSIS CONSISTENT WITH DIABETIC | | NEPHROPATHY.- HYPERTENSIVE VASCULAR | | CHANGES.- SEVERE TUBULAR ATROPHY AND INTERSTITIAL | | FIBROSIS. | |- HYPERTENSIVE VASCULAR CHANGES. | |- SEVERE TUBULAR ATROPHY AND INTERSTITIAL FIBROSIS. | + + Resolved Problems + + + + | Problem | Noted | Resolved | | | Date | Date | + + + + | Eczema of both upper extremities | 11/10/19 | | | | 20 | 0 | + + + + | Steroid-induced hyperglycemia | 11/10/19 | | | | 20 | 0 | + + + + | Secondary renal hyperparathyroidism | 11/10/19 | | | | 20 | 0 | + + + + | HLD (hyperlipidemia) | 11/10/19 | | | | 20 | 0 | + + + + | Bacteremia due to methicillin susceptible Staphylococcus aureus | 11/10/19 | | | (MSSA) | 20 | 0 | + + + + + + | Overview: 2014 Sepsis- PNA | + + + + + + | Blind left eye | 11/10/19 | | | | 20 | 0 | + + + + | Hyperkalemia | 11/10/19 | | | | 20 | 0 | + + + + | Hyperphosphatemia | 11/10/19 | | | | 20 | 0 | + + + + + + | Overview: Per dialysis records trends ~6-8.1, one result at | | 3.5 | + + + + + + | Hyperparathyroidism, unspecified | 11/10/19 | | | | 20 | 0 | + + + + + + | Overview: PTH trends in the 500's | + + Encounters +--------+ + + + + | Date | Type | Specialty | Care Team | Description | +--------+ + + + + | 12/22/ | Telephone | Kidney Transplant | Makenna Sheldon, | Pre-Transplant | | 2020 | | | RN | Evaluation (schedule | | | | | | remainder of eval) | +--------+ + + + + | 12/15/ | Office | Kidney Transplant | Taiwo Marin | Encounter for | | 2019 | Visit | | MD [facility] | pre-transplant | | | | | | evaluation for | | | | | | chronic kidney | | | | | | disease (Primary | | | | | | Dx); CKD (chronic | | | | | | kidney disease) | | | | | | requiring chronic | | | | | | dialysis ([facility]); 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 | | | | | | (end-stage renal | | | | | | disease) ([facility]); | | | | | | Secondary | | | | | | 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; | | | | | | Chronic obstructive | | | | | | asthma ([facility]); C | | | | | | syndrome; Chronic | | | | | | anticoagulation; | | | | | | Gout, unspecified | | | | | | cause, unspecified | | | | | | chronicity, | | | | | | unspecified site; | | | | | | Polysubstance abuse | | | | | | (HCC) | +--------+ + + + + | 12/15/ | Documentati | Kidney Transplant | Chirag Vogel, | Evaluation of | | 2020 | on | | PharmD | response to | | | | | | medications | +--------+ + + + + | 12/15/ | Travel | | | | | 2019 | | | | | +--------+ + + + + | 12/14/ | Telephone | Kidney Transplant | Makenna Sheldon, | Phone communication | | 2019 | | | RN | | +--------+ + + + + | 12/12/ | Telephone | Kidney Transplant | Taiwo Marin | Other (Medical | | 2019 | | | MD [facility] | records review.) | +--------+ + + + + | 11/24/ | Documentati | Kidney Transplant | Robin Horton, | Transplant (LIT HLA | 2019 | on | | | Typing - Recipient) | +--------+ + + + + | 11/12/ | Documentati | Kidney Transplant | Chirag Vogel, | Evaluation of | 2019 | on | | PharmD | response to | | | | | | medications | +--------+ + + + + | 11/11/ | Telephone | Kidney Transplant | Makenna Sheldon, | Pre-Transplant | 2019 | | | RN | Evaluation | | | | | | (re-schedule clinic) | +--------+ + + + + | 11/10/ | Lab | Phlebotomy | | Type 2 diabetes | | 2019 | | | | mellitus with ESRD | | | | | | (end-stage renal | | | | | | disease) (HCC) | +--------+ + + + + | 11/10/ | Travel | | | | | 2019 | | | | | +--------+ + + + + | 11/09/ | Telephone | Kidney Transplant | Makenna Sheldon, | Phone communication | | 2019 | | | RN | ([facility] | | | | | | Screening questions) | +--------+ + + + + | 10/13/ | Documentati | Kidney Transplant | Nuvia Hood | Financial Review | | 2019 | on | | | | +--------+ + + + + | 09/29/ | Telephone | Kidney Transplant | Makenna Sheldon, | Pre Transplant | | 2020 | | | RN | Workup (Intake) | +--------+ + + + + from Last 3 Months Family History + + +------+ + | Medical History | Relation | Name | Comments | + + +------+ + | Alcohol abuse | Brother | | | + + +------+ + | Other | Father | | Fall | + + +------+ + | Heart Attack | Mother | | | + + +------+ + | No Known Problems | Sister | | | + + +------+ + | Diabetes | Sister | | | + + +------+ + + +------+ + + | Relation | Name | Status | Comments | + +------+ + + | Brother | | | | + +------+ + + | Father | | | | + +------+ + + | Mother | | | | + +------+ + + | Sister | | Alive | | + +------+ + + | Sister | | Alive | | + +------+ + + Social History + + + [...] | | | + + + + Last Filed Vital Signs + + + + + | Vital Sign | Reading | Time Taken | Comments | + + + + + | Blood Pressure | 155/72 | 12/16/2019 1:12 PM | | | | | PDT | | + + + + + | Pulse | 91 | 12/16/2019 1:12 PM | | | | | PDT | | + + + + + | Temperature | 36.7 C (98 F) | 12/16/2019 1:12 PM | | | | | PDT | | + + + + + | Respiratory Rate | - | - | | + + + + + | Oxygen Saturation | 100% | 12/16/2019 1:12 PM | | | | | PDT | | + + + + + | Inhaled Oxygen | - | - | | | Concentration | | | | + + + + + | Weight | 84.8 kg (186 lb 14.4 | 12/16/2019 1:12 PM | | | | oz) | PDT | | + + + + + | Height | 168.3 cm (5' 6.25") | 12/16/2019 1:12 PM | | | | | PDT | | + + + + + | Body Mass Index | 29.94 | 12/16/2019 1:12 PM | | | | | PDT | | + + + + + Plan of Treatment + + + + + | Health Maintenance | Due Date | Last Done | Comments | + + + + + | Pneumococcal | 12/03/201 | 05/26/2009 | | | vaccination (2 of 3 | 0 | | | | - PCV13) | | | | + + + + + | Influenza (Flu) | | 04/10/2019, 03/17/2018, | | | vaccination (#1) | 0 | 03/20/2016, Additional history | | | | | exists | | + + + + + Procedures + +--------+ + + + | [...] section. | | | | | disease) ([facility]) | | + +--------+ + + + | CULTURE, URINE [facility] | Routin | 11/11/2019 | Type 2 diabetes | Results for this | | | e | 2:07 PM | mellitus with ESRD | procedure are in the | | | | PDT | (end-stage renal | results section. | | | | | disease) ([facility]) | | + +--------+ + + + | CBC AND AUTO DIFF | Routin | 11/11/2019 | Type 2 diabetes | Results for this | | | e | 2:07 PM | mellitus with ESRD | procedure are in the | | | | PDT | (end-stage renal | results section. | | | | | disease) ([facility]) | | + +--------+ + + + | ANTIBODY ELUTION | Routin | 11/11/2019 | Type 2 diabetes | Results for this | | | e | 2:07 PM | mellitus with ESRD | procedure are in the | | | | PDT | (end-stage renal | results section. | | | | | disease) ([facility]) | | + +--------+ + + + | ANTIBODY | Routin | 11/11/2019 | Type 2 diabetes | Results for this | | IDENTIFICATION | e | 2:07 PM | mellitus with ESRD | procedure are in the | | | | PDT | (end-stage renal | results section. | | | | | disease) ([facility]) | | + +--------+ + + + | AMANDA IGG | Routin | 11/11/2019 | Type 2 diabetes | Results for this | | | e | 2:07 PM | mellitus with ESRD | procedure are in the | | | | PDT | (end-stage renal | results section. | | | | | disease) ([facility]) | | + +--------+ + + + | C3 AMANDA | Routin | 11/11/2019 | Type 2 diabetes | Results for this | | | e | 2:07 PM | mellitus with ESRD | procedure are in the | | | | PDT | (end-stage renal | results section. | | | | | disease) ([facility]) | | + +--------+ + + + | CONFIRMATORY ABO/RH | Routin | 11/11/2019 | Type 2 diabetes | Results for this | | | e | 2:07 PM | mellitus with ESRD | procedure are in the | | | | PDT | (end-stage renal | results section. | | | | | disease) ([facility]) | | + +--------+ + + + | ANTIBODY SCREEN | Routin | 11/11/2019 | Type 2 diabetes | Results for this | | | e | 2:07 PM | mellitus with ESRD | procedure are in the | | | | PDT | (end-stage renal | results section. | | | | | disease) ([facility]) | | + +--------+ + + + | ABO & RH TYPE | Routin | 11/11/2019 | Type 2 diabetes | Results for this | | | e | 2:07 PM | mellitus with ESRD | procedure are in the | | | | PDT | (end-stage renal | results section. | | | | | disease) ([facility]) | | + +--------+ + + + | DRUG SCREEN 9 PANEL, | Routin | 11/11/2019 | Type 2 diabetes | Results for this | | S/P,W/REFLEX QUANT | e | 2:07 PM | mellitus with ESRD | procedure are in the | | | | PDT | (end-stage renal | results section. | | | | | disease) ([facility]) | | + +--------+ + + + | NICOTINE & | Routin | 11/11/2019 | Type 2 diabetes | Results for this | | METABOLITES, SERUM | e | 2:07 PM | mellitus with ESRD | procedure are in the | | | | PDT | (end-stage renal | results section. | | | | | disease) ([facility]) | | + +--------+ + + + | PSA TOTAL, | Routin | 11/11/2019 | Type 2 diabetes | Results for this | | SCREENING, SERUM | e | 2:07 PM | mellitus with ESRD | procedure are in the | | | | PDT | (end-stage renal | results section. | | | | | disease) ([facility]) | | + +--------+ + + + | HEMOGLOBIN A1C, | Routin | 11/11/2019 | Type 2 diabetes | Results for this | | BLOOD | e | 2:07 PM | mellitus with ESRD | procedure are in the | | | | PDT | (end-stage renal | results section. | | | | | disease) ([facility]) | | + +--------+ + + + | QUANTIFERON TB GOLD, | Routin | 11/11/2019 | Type 2 diabetes | Results for this | | BLOOD | e | 2:07 PM | mellitus with ESRD | procedure are in the | | | | PDT | (end-stage renal | results section. | | | | | disease) ([facility]) | | + +--------+ + + + | CMV IGG AND IGM ABS, | Routin | 11/11/2019 | Type 2 diabetes | Results for this | | SERUM | e | 2:07 PM | mellitus with ESRD | procedure are in the | | | | PDT | (end-stage renal | results section. | | | | | disease) ([facility]) | | + +--------+ + + + | NAY QUIROZ VIRUS | Routin | 11/11/2019 | Type 2 diabetes | Results for this | | AB VCA IGG, SERUM | e | 2:07 PM | mellitus with ESRD | procedure are in the | | | | PDT | (end-stage renal | results section. | | | | | disease) ([facility]) | | + +--------+ + + + | VARICELLA ZOSTER | Routin | 11/11/2019 | Type 2 diabetes | Results for this | | IGG, SERUM | e | 2:07 PM | mellitus with ESRD | procedure are in the | | | | PDT | (end-stage renal | results section. | | | | | disease) ([facility]) | | + +--------+ + + + | RPR SERUM | Routin | 11/11/2019 | Type 2 diabetes | Results for this | | | e | 2:07 PM | mellitus with ESRD | procedure are in the | | | | PDT | (end-stage renal | results section. | | | | | disease) ([facility]) | | + +--------+ + + + | HEPATITIS C VIRUS | Routin | 11/11/2019 | Type 2 diabetes | Results for this | | W/CONFIRMATION | e | 2:07 PM | mellitus with ESRD | procedure are in the | | | | PDT | (end-stage renal | results section. | | | | | disease) ([facility]) | | + +--------+ + + + | HIV-1,2 AB/HIV-1 P24 | Routin | 11/11/2019 | Type 2 diabetes | Results for this | | AG SCRN | e | 2:07 PM | mellitus with ESRD | procedure are in the | | | | PDT | (end-stage renal | results section. | | | | | disease) ([facility]) | | + +--------+ + + + | HEPATITIS B SURFACE | Routin | 11/11/2019 | Type 2 diabetes | Results for this | | AG W/REFLEX IF | e | 2:07 PM | mellitus with ESRD | procedure are in the | | INDICATED | | PDT | (end-stage renal | results section. | | | | | disease) ([facility]) | | + +--------+ + + + | HEPATITIS B SURFACE | Routin | 11/11/2019 | Type 2 diabetes | Results for this | | AB QUAL, SERUM | e | 2:07 PM | mellitus with ESRD | procedure are in the | | | | PDT | (end-stage renal | results section. | | | | | disease) ([facility]) | | + +--------+ + + + | HEPATITIS B CORE AB, | Routin | 11/11/2019 | Type 2 diabetes | Results for this | | SERUM | e | 2:07 PM | mellitus with ESRD | procedure are in the | | | | PDT | (end-stage renal | results section. | | | | | disease) ([facility]) | | + +--------+ + + + | HEPATITIS A AB, IGG | Routin | 11/11/2019 | Type 2 diabetes | Results for this | | | e | 2:07 PM | mellitus with ESRD | procedure are in the | | | | PDT | (end-stage renal | results section. | | | | | disease) ([facility]) | | + +--------+ + + + | RUBELLA IGG AB, | Routin | 11/11/2019 | Type 2 diabetes | Results for this | | SERUM | e | 2:07 PM | mellitus with ESRD | procedure are in the | | | | PDT | (end-stage renal | results section. | | | | | disease) ([facility]) | | + +--------+ + + + | MUMPS IGG AB, SERUM | Routin | 11/11/2019 | Type 2 diabetes | Results for this | | | e | 2:07 PM | mellitus with ESRD | procedure are in the | | | | PDT | (end-stage renal | results section. | | | | | disease) ([facility]) | | + +--------+ + + + | IVONNE (TESSA) | Routin | 11/11/2019 | Type 2 diabetes | Results for this | | IGG | e | 2:07 PM | mellitus with ESRD | procedure are in the | | | | PDT | (end-stage renal | results section. | | | | | disease) ([facility]) | | + +--------+ + + + | CULTURE, URINE BACTI | Routin | 11/11/2019 | Type 2 diabetes | Results for this | | | e | 2:07 PM | mellitus with ESRD | procedure are in the | | | | PDT | (end-stage renal | results section. | | | | | disease) ([facility]) | | + +--------+ + + + | URINE, MICROSCOPIC | Routin | 11/11/2019 | Type 2 diabetes | Results for this | | EXAM | e | 2:07 PM | mellitus with ESRD | procedure are in the | | | | PDT | (end-stage renal | results section. | | | | | disease) ([facility]) | | + +--------+ + + + | UA, DIPSTICK ONLY | Routin | 11/11/2019 | Type 2 diabetes | Results for this | | | e | 2:07 PM | mellitus with ESRD | procedure are in the | | | | PDT | (end-stage renal | results section. | | | | | disease) ([facility]) | | + +--------+ + + + | INR | Routin | 11/11/2019 | Type 2 diabetes | Results for this | | | e | 2:07 PM | mellitus with ESRD | procedure are in the | | | | PDT | (end-stage renal | results section. | | | | | disease) ([facility]) | | + +--------+ + + + | APTT (ACT. PART. | Routin | 11/11/2019 | Type 2 diabetes | Results for this | | THROMBO TIME) | e | 2:07 PM | mellitus with ESRD | procedure are in the | | | | PDT | (end-stage renal | results section. | | | | | disease) ([facility]) | | + +--------+ + + + | CBC, WITH | Routin | 11/11/2019 | Type 2 diabetes | Results for this | | DIFFERENTIAL | e | 2:07 PM | mellitus with ESRD | procedure are in the | | | | PDT | (end-stage renal | results section. | | | | | disease) ([facility]) | | + +--------+ + + + | TYPE AND SCREEN | Routin | 11/11/2019 | Type 2 diabetes | Results for this | | | e | 2:07 PM | mellitus with ESRD | procedure are in the | | | | PDT | (end-stage renal | results section. | | | | | disease) ([facility]) | | + +--------+ + + + | CHOLESTEROL TOTAL, | Routin | 11/11/2019 | Type 2 diabetes | Results for this | | PLASMA | e | 2:07 PM | mellitus with ESRD | procedure are in the | | | | PDT | (end-stage renal | results section. | | | | | disease) ([facility]) | | + +--------+ + + + | LDH TOTAL, PLASMA | Routin | 11/11/2019 | Type 2 diabetes | Results for this | | | e | 2:07 PM | mellitus with ESRD | procedure are in the | | | | PDT | (end-stage renal | results section. | | | | | disease) ([facility]) | | + +--------+ + + + | BILIRUBIN DIRECT | Routin | 11/11/2019 | Type 2 diabetes | Results for this | | | e | 2:07 PM | mellitus with ESRD | procedure are in the | | | | PDT | (end-stage renal | results section. | | | | | disease) ([facility]) | | + +--------+ + + + | URIC ACID, PLASMA | Routin | 11/11/2019 | Type 2 diabetes | Results for this | | | e | 2:07 PM | mellitus with ESRD | procedure are in the | | | | PDT | (end-stage renal | results section. | | | | | disease) ([facility]) | | + +--------+ + + + | PHOSPHORUS, PLASMA | Routin | 11/11/2019 | Type 2 diabetes | Results for this | | | e | 2:07 PM | mellitus with ESRD | procedure are in the | | | | PDT | (end-stage renal | results section. | | | | | disease) ([facility]) | | + +--------+ + + + | MAGNESIUM, PLASMA | Routin | 11/11/2019 | Type 2 diabetes | Results for this | | | e | 2:07 PM | mellitus with ESRD | procedure are in the | | | | PDT | (end-stage renal | results section. | | | | | disease) ([facility]) | | + +--------+ + + + | COMPLETE METABOLIC | Routin | 11/11/2019 | Type 2 diabetes | Results for this | | SET | e | 2:07 PM | mellitus with ESRD | procedure are in the | | (NA,K,CL,CO2,BUN,CRE | | PDT | (end-stage renal | results section. | | AT,GLUC,CA,AST,ALT,B | | | disease) ([facility]) | | | BASHIR TOTAL,ALK | | [...] | | | | | | disease) ([facility]) | | + +--------+ + + + | LIT HLA-A LOW RES-KE | Routin | 11/11/2019 | Type 2 diabetes | | | | e | 2:07 PM | mellitus with ESRD | | | | | PDT | (end-stage renal | | | | | | disease) ([facility]) | | + +--------+ + + + | LIT HLA-B LOW RES-KE | Routin | 11/11/2019 | Type 2 diabetes | | | | e | 2:07 PM | mellitus with ESRD | | | | | PDT | (end-stage renal | | | | | | disease) ([facility]) | | + +--------+ + + + | LIT HLA-C LOW RES-KE | Routin | 11/11/2019 | Type 2 diabetes | | | | e | 2:07 PM | mellitus with ESRD | | | | | PDT | (end-stage renal | | | | | | disease) ([facility] [facility]) | | + +--------+ + + + | LIT HLA-DR LOW | Routin | 11/11/2019 | Type 2 diabetes | | | RES-KE | e | 2:07 PM | mellitus with ESRD | | | | | PDT | (end-stage renal | | | | | | disease) ([facility]) | | + +--------+ + + + | LIT HLA-DP LOW RES- | Routin | 11/11/2019 | Type 2 diabetes | | | KE | e | 2:07 PM | mellitus with ESRD | | | | | PDT | (end-stage renal | | | | | | disease) ([facility]) | | + +--------+ + + + | LIT FLOW HLA II AB | Routin | 11/11/2019 | Type 2 diabetes | | | AG ID KE, BLOOD | e | 2:07 PM | mellitus with ESRD | | | | | PDT | (end-stage renal | | | | | | disease) ([facility]) | | + +--------+ + + + | LIT FLOW HLA I AB ID | Routin | 11/11/2019 | Type 2 diabetes | Results for this | | KE, BLOOD | e | 2:07 PM | mellitus with ESRD | procedure are in the | | | | PDT | (end-stage renal | results section. 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 | | | | | | Mio [...] [facility] | [address] | [place], [place] | | | UNIV PTH - INTFC | | [address] | | + + + + + URINE CULTURE WORKUP (11/11/2019 2:07 PM PDT) [...] | + + + + + | [facility] - | [address] | [place] [address] | | | [place] | | | | + + + + + CULTURE, URINE DIO (11/11/2019 2:07 PM PDT) + + + [...] | + + + + + | [facility] | [address] | [place] [address] | | | SERVICES, ROSALINO | [address]VADOR [...] + | [facility] - | [address] | [place] [address] | | | [place] | | | | + + + + + DRUG SCREEN 9 MIMI S/P,W/REFLEX QUANT (11/11/2019 2:07 PM PDT) + [...] | | | | | determined by [facility] | | | | | | Laboratories. See | | | | | | Compliance Statement B: | | | | | | [email or web address] | | | | | | by [facility],[address] | | | | [address], [place] | | | | | | [address] | | | | | | [phone]. | | | | | | Mio [...] [facility] | [address] | [place], [place] | | | UNIV PTH - INTFC | | [address] | | + + + + + [...] [facility] | [address] | [place] [address] | | | SERVICES, | [address] [...] | + + + + + | [facility] | [address] | [place] [address] | | | SERVICES, | [address] | | | | TRANSFUSION MEDICINE [...] [facility] | [address] | [place] [address] | | | SERVICES, CORE | PARK [...] | + + + + + | [email or web address] | [address] | [place] [address] | | | SERVICES, CORE | PARK [...] [facility] | [address] | [place] [address] | | | SERVICES, | [address] | | | | TRANSFUSION MEDICINE [...] [facility] - | [address], | [place] [address] | | | IMMUNOGENETICS/TRANS | [address] | | | | [facility] LAB[facility]ORY | | | | + + + + + NAY QUIROZ VIRUS AB VCA IGG, SERUM (11/11/2019 2:07 [...] [address] | | | | | | [facility], [place] [address] | | | | | | [phone]. | | | | | | Mio [...] [facility] | [address] | [place], [place] | | | UNIV PTH - INTFC | | [address] | | + + + + + [...] [facility] | | | NIL | by [employer],[address] | | REG UNIV | | | | [place] | | PTH - INTFC | | | | [address] | | | | | | [phone]. | | | | | | Mio [...] (http://www.cdc.gov/mmwr | | | | | | /preview/mmwrhtml/oi2899 | | | | | | [email or web address].htm), [...] [facility] | [address] | [place], [place] | | | UNIV PTH - INTFC | | [address] | | + + + + + [...] [facility] - | [address] | [place] [address] | | | IMMUNOGENETICS/TRANS | [address] [...] + + | [facility] - | [address] | [place] [address] | | | IMMUNOGENETICS/TRANS | [address] [...] [facility] | [address] | [place] [address] | | | SERVICES, | [address] | | | | TRANSFUSION MEDICINE [...] [facility] - | [address], | [place] [address] | | | IMMUNOGENETICS/TRANS | [address] [...] [facility] - | [address], | [place] [address] | | | IMMUNOGENETICS/TRANS | [address] [...] + + | [facility] - | [address] | [place] [address] | | | IMMUNOGENETICS/TRANS | [address] [...] | [facility] - | [address] | [place] [address] | | | IMMUNOGENETICS/TRANS | [address] [...] - | [address] | [place], [place] | | | IMMUNOGENETICS/TRANS | [address] | | | | PLANT LABORATORY | | | | + + + + + LIT HLA-DR LOW FARAZ-DERRELL (11/11/2019 2:07 PM PDT) + + | Specimen | + + | Blood - Blood | | (substance) | + + + + + + + | Performing | Address | City/State/Zipcode | Phone Number | | Organization | | | | + + + + + | [facility] - | [address] | [place], [place] | | | IMMUNOGENETICS/TRANS | [address] [...] [place] | | | | | | [address] | | | | | | [phone]. | | | | | | Mio [...] [facility] | [address] | [place], [place] | | | UNIV PTH - INTFC | | [address] | | + + + + + [...] | + + + + + | [facility] | [address] | [place] [address] | | | SERVICES, ROSALINO | SALVADOR [...] | TESTING IS NOT INDICATED | | [place] | | | | OR USEFUL TO [...] | + + + + + | [facility] - | [address] | [place] [address] | | | [place] | | | | + + + [...] by | | | | | | [employer],[address] | | | | | | [place] [address], [facility],[place] | | | | | | [address] | | | | | | [phone].[email or web address]. | | | | | | Mio [...] [facility] | [address] | [place], [place] | | | UNIV PTH - INTFC | | [address] | | + + + + + [...] | + + + + + | [facility] | [address] | [place] [address] | | | SERVICES, CORE | SALVADOR [...] | | | | | determined by [facility] | | | | | | Laboratories. See | | | | | | Compliance Statement B: | | | | | | [email or web address] | | | | | | by [employer],[address] | | | | | | [address] [facility],[place] | | | | | | [address] | | | | | | [phone]. | | | | | | Mio su MD, | | | | | | Lab. Director | | | | + + + + + + | COTININE | <2 | ng/mL | [facility] | | | | | | REG [...] [facility] | [address] | [place], [place] | | | UNIV PTH - INTFC | | [address] | | + + + + + [...] | | | LABORATORY | | | VINCENTIAN | | | SERVICES, | | | [...] MDRD equation recommended by the National | [facility] | | Kidney Disease Education Program. Estimated [...] | + + + + + | [facility] | [address] | [place] [address] | | | SERVICES, CORE | SALVADOR [...] | [facility] | | | GRAVITY | Princess Anne performed by | | LABORATORY | | [...] [facility] | [address] | [place] [address] | | | SERVICESROSALINO | [address] | | | + [...] [facility] | [address] | [place] [address] | | | SERVICES, CORE | PARK [...] not detected. The performance of the | [facility] | | CERTIFIED GENETIC COUNSELOR HIV Combo test, with or without confirmation, [...] | + + + + + | [facility] | [address] | [place] [address] | | | SERVICES, SPECIAL | PARK [...] by | | | | | | [employer],[address] | | | | | | [place], [facility],[place] | | | | | | [address] | | | | | | [phone].Ethical Electricjean [email or web address]. | | | | | | Mio [...] + + | [facility] | [address] | [place], [place] | | | UNIV PTH - INTFC | | [address] | | + + + + + [...] | + + + + + | [facility] - | [address] | [place] [address] | | | [facility] | | | | + + + [...] | + + + + + | [facility] | [address] | [place] [address] | | | SERVICES, CORE | PARK [...] [facility] | [address] | [place] [address] | | | SERVICES, | [address] [...] | + + + + + | [facility] | [address] | [place] [address] | | | UNA, | [address] | | | | TRANSFUSION MEDICINE [...] [facility] | [address] | [place] [address] | | | SERVICES, | [address] [...] | + + + + + | [facility] | [address] | [place] [address] | | | SERVICES, CORE | SALVADOR [...] | + + + + + | [facility] | [address] | [place] [address] | | | SERVICES, CORE | PARK [...] [facility] | [address] | [place] [address] | | | SERVICES, CORE | PARK [...] [facility] | [address] | [place] [address] | | | SERVICES, CORE | PARK [...] | [facility] | | considered for monitoring correction glycemic control in patients with: | LABORATORY [...] [facility] | [address] | [place] [address] | | | SERVICES, SPECIAL | SAL[address] [...] | + + + + + | [facility] | [address] | [place] [address] | | | SERVICES, CORE | SALVADOR [...] [facility] | [address] | [place] [address] | | | SERVICES, CORE | PARK [...] [facility] | [address] | [place] [address] | | | SERVICES, CORE | PARK [...] | + + + + + | [facility] | [address] | [place] [address] | | | SERVICES, CORE | SALVADOR [...] [facility] | [address] | [place] [address] | | | SERVICES, CORE | [address] | | | + + + + + from Last 3 Months Insurance + +--------+ +--------+ + +--------+ | Payer | Benefi | Subscriber | Effect | Phone | Address | Type | | | t Plan | ID | home | | | | | | / | | Dates | | | | | | Group | | | | | | + +--------+ +--------+ + +--------+ | MEDICARE | MEDICA | xxxxxxxxxxx | 06/24/19 | [phone] | [address] | | | RE A & | | 13-Pre | 1 | [phone] | re | | | B | | sent | | [place] | | | | | | | | [address] | | + +--------+ +--------+ + +--------+ | MEDICARE RENAL | MEDICA | xxxxxxxxxxx | 06/24/19 | | RENAL | Agency | | RECIPIENT EVAL | RE | | 13-Pre | | DEPT [id number] | | | | RENAL | | sent | | [place], | | | | RECIPI | | | | [place] [address] | | | | ENT | | | | | | | | EVAL | | | | | | + +--------+ +--------+ + +--------+ | MEDICAID [place] | [facility] | xxxxxxxx | 08/30/19 | [phone] | [address] | [address] | | | PLUS | | 19-Pre | 6 | [phone] | id | | | OPEN | | sent | | [place], [place] | | | | CARD | | | | [phone] | | + +--------+ +--------+ + +--------+ + +--------+ +--------+ + + | Guarantor Name | Accoun | Relation to | Date | Phone | Billing Address | | | t Type | Patient | of | | | | | | | | | | + +--------+ +--------+ + + | Tariq,Enrique Jose Rafael | Person | Self | [birth year] | [address] | | | al/Fam | | 1964 [address] [place], [place] | | | juan | | | [address] ([place]) | [address] | + +--------+ +--------+ + + | Enrique Potter | Specia | Self | [birth year] | | [address] | | | l | | 1964 | [address] [place], [place] | | | [place] | | | [address] ([place]) | [address] | | | g | | | | | + +--------+ +--------+ + +
--- OUTSIDE RECORDS SUMMARY | ~2019-12-30 | XMS | Encounter Summary ---
Demographics + + + | Address | [address] | | | [place] [address] | + + + | Home Phone | | + + + | Preferred Language | Unknown | + + + | Marital Status | Unknown | + + + | Evangelical Affiliation | 1076 | + + + | Race | Unknown | + + + | Ethnic Group | Unknown | + + + Author + + + | Author | [facility] | | | and [place] | + + + | Organization | [facility] | | [...] Team Providers + +------+ + | Care Health Manager Name | Role | Phone | + +------+ + | Andry Deng DO | PCP | | + +------+ + Encounter Details +--------+ + + + + | Date | Type | Department | Care Team | Description | +--------+ + + + + | 05/26/ | Orders Only | [facility] | Conversion | | | 2013 | | INFECTIOUS DISEASE | Transaction, | | | | | [address] | Provider Unknown | | | | | [place], [place] | [phone] | | | | | [address] | (Fax) | | | | | [phone] | | | +--------+ + + + [...]
--- OUTSIDE RECORDS SUMMARY | ~2019-12-30 | XMS | Encounter Summary ---
Demographics + + + | Address | [address] | | | [place] [address] | + + + | Home Phone [...] Team Providers + +------+ + | Care Recovery Operator Name | Role | Phone | + +------+ + PCP | Unavailable | + +------+ + Encounter Details +--------+ + + + + | Date | Type | Department | Care Team | Description | +--------+ + + + + | 04/24/ | Hospital | [facility] | Conversion | ESRD (end stage | | 2012 | Encounter | [facility] | Transaction, | renal disease) ([facility]) | | | | ULTRASOUND [address] | Provider Unknown | | | | | [address] | [phone] | | | | | [place], [place] | | | | | | [address] | Juan Cook MD | | | | | [phone] | [address] | | | | | | [address] [place], [place] | | | | | | [address] | | | | | | | [...] Notes by Juan Cook MD at 04/24/12 1257 Author: Juan Cook MD Service: Nephrology Author Type: Physician Filed: 04/24/12 2154 Date of Service: 04/24/12 1255 Status: Signed Astronomy Instructor: Juan Cook MD (Physician) [facility] Service: NEPHROLOGY DIALYSIS Note Carol Stanton 47 y.o. [id number] Room/bed info not found male [facility] Day: LOS: 0 days SUBJECTIVE Patient seen and examined TODAY IN THE RADIOLOGY DEPT CAME FOR VEIN MAPPING FROM [facility]. SAYS FEEL OK, C/O ITCHY SKIN DENIES [...] WITH [employer]; KIDSUNEMPLOYED BEFORE WORKED AT [employer]/ [employer] COURSESMOKE NONE ETOH QUIT 15 YEARS AGODRUGS: [...] Ultrasound Upper Extremity Dialysis Mapping Bilateral 04/24/2012 CAROL STANTON US UPPER EXTREMITY DIALYSIS MAPPING BILATERAL [...] GIVEN GOING TO SEE JANNY PCP AT [facility] FOR ANTICOAGULATION LIKELY DUE TO RIGHT PERMCATH AND HAD LEFT PICC LINE IN THE HOSPITAL NOW REMOVED JUAN COOK MD 04/24/2012 JANNY AYERS MD LEE, PA-C [facility] [place] documented in this en counter Plan of [...] | + + + | CAROL STANTON US UPPER EXTREMITY DIALYSIS MAPPING BILATERAL 04/24/2012 | [...] | system. The possibility of "sound alike" transformation lead errors, | | | addition and/or deletions may occur. If there is any question about | | | this report please contact the originating radiologist. | | | | | + + + + + | Procedure Note | + + | Néstor, Rad Conversion - 02/14/2019 4:18 AM PDT CAROL CHAPARRO UPPER EXTREMITY DIALYSIS | | MAPPING [id number]/1/2012 10:49 AM HISTORY:47 years. Male. End-stage renal [...] | recognition system.The possibility of "sound alike" transformation lead errors, addition | | and/or deletions may [...] system. | |The possibility of "sound alike" transformation lead errors, addition and/or deletions may occur. If [...]
--- OUTSIDE RECORDS SUMMARY | ~2019-12-30 | XMS | Encounter Summary ---
Demographics + + + | Address | [address] | | | [place] [address] | + + + | Home Phone | | + + + | Preferred Language | Unknown | + + + | Marital Status | Unknown | + + + | Taoist Affiliation | [id number] | + + + | Race | Unknown | + + + | Ethnic Group | Unknown | + + + Author + + + | Author | [facility] | | | and [place] | + + + | Organization | [facility] | | [...] Providers + +------+ + | Care Metal Sprayer Protective Coating Name | Role | Phone | + +------+ + PCP | Unavailable | + +------+ + Encounter Details +--------+ + + + + | Date | Type | Department | Care Team | Description | +--------+ + + + + | 02/03/ | Hospital | [facility] | Conversion | ESRD (end stage | | 2014 | Encounter | CENTER [facility]TRA OP | Transaction, | renal disease) (HCC) | | | | [address] | Provider Unknown | | | | | [place], [place] | [phone] | | | | | [address] | | | | | | [phone] | Oskar Meyer MD | | | | | | [address] | | | | | | [place], [place] | | | | | | [address] | | | | | | [phone] | | | | | | | [...] tablet by mouth | | 0 | / | | | (ATARAX) 25 MG | [...] encounter H&P Notes Teresita Toure ARNP - 02/03/2014 3:26 PM PDTFormatting of this note might be different f rom the original. H&P by DARRELL Medellin at 02/03/14 1526 Author: DARRELL Medellin Service: Vascular Surgery Author Type: Advanced Registered N radhae Practitioner Filed: 02/03/14 1526 Date of Service: 02/03/141525 Status: Signed Professor Of Mechanical Engineering: DARRELL Medellin (Advanced Registered Nurse Practitioner) [facility] Service: Vascular Surgery Pre-Operative History & Physical DIAGNOSIS: ESRD INDICATION: SAME PROCEDURE: Right arm venogram CHIEF COMPLAINT: Need for business division chair hemodialysis access History Obtained From: patient HISTORY OF PRESENT ILLNESS The patient is a 48 y.o. male with significant past medical history of ESRD, HTN, IVDU, an d DVTwho presents with a need for new fistula creation. Currently dialyzing via tunnel cath eter. Had a previous basilic vein transposition which clotted off due to resistant outflow o bstruction. We have discussed performing a venogram to evaluate for outflow obstruction jimbo or to fistula creation on the right arm and patient would like to proceed. REVIEW [...] W/ EGD; Surgeon: John Singleton MD; Location: [facility]; Se rvice: Gastroenterology; Laterality: N/A; Av fistula placement 05/06/2012 Procedure: AV FISTULA; Surgeon: Oskar Meyer MD; Location: [facility] OR; Service: Vascul ar; Laterality: Left; Left arm possible right Unlisted procedure arthroscopy shoulder rt , ligaments Knee arthroscopy 07/07/2012 Procedure: KNEE - ARTHROSCOPY; Surgeon: Favio Raza MD; Location: [facility] OR; ervic: Orthopedics; Laterality: Right; After 1530 Catheter removal 07/07/2012 Procedure: DIALYSIS CATHETER REMOVAL; Surgeon: Oskar Meyer MD; Location: [facility] BED[facility] [place] OCEDURE; Service: General; Laterality: Right; perm cath Dialysis fistula creation 07/07/2012 Procedure: DIALYSIS CATHETER INSERTION; Surgeon: Oskar Meyer MD; Location: [facility] PROCEDURE; Service: General; Laterality: Left; temporary dialysis catheter Av fistula repair 07/11/2012 Procedure: AV FISTULA GRAFT REPAIR/REVISION; Surgeon: Oskar Meyer MD; Location: [facility] OR; Service: Vascular; Laterality: Left; Superficialization of brachiobasilic fistula and right IJ perm cath insertion Dialysis fistula creation 07/11/2012 Procedure: DIALYSIS CATHETER INSERTION; Surgeon: Oskar Meyer MD; Location: [facility] OR; Service: Vascular; Laterality: Left; removed dialysis catheter from left neck and placed new on in left chest, attempted in right neck but unable to place Allergies Allergen Reactions Lisinopril Other (See Comments) "makes me sweat and knocked me out" Penicillins Other (See Comments) Unknown 10/08/12: Patient tolerated Ceftriaxone during previous admissions. Current Outpatient Prescriptions on File Prior to [...] 20 mg by mouth daily with breakfast. RENVELA 800 MG tablet take 3 tablets [...] KIDS. CURRENTLY UNEMPLOYED, BEFOR E WORKED AT [employer] IN [place]. Quit METHAMPHETAMINES PER PATIENT after t he ARF in mar 2012. FATHER HAS COLON CANCER, HEART DISEASE, MOTHER 15 YEARS AGO. NO FH KIDNEY PROBLEMS. PHYSICAL EXAM Vital Signs: There were no [...] Skin is warm and dry. Vascular: Palp right radial and brachial pulse DATA CBC: Lab Results Component Value Date WBC 7.9 12/23/2013 RBC 3.70* 12/23/2013 HGB 11.6* 12/23/2013 HCT 34.8* 12/23/2013 MCV 93.9 12/23/2013 MCH 31.4 12/23/2013 MCHC 33.5 12/23/2013 RDW 48.1 12/23/2013 PLT 257 12/23/2013 MPV 6.5 12/23/2013 DIFFTYPE AUTOMATED 12/23/2013 CMP: Lab Results Component Value Date NA 130* 12/23/2013 K 3.5 12/23/2013 CL 88* 12/23/2013 CO2 30 12/23/2013 ANIONGAP 16 12/23/2013 GLUF 101* 12/23/2013 BUN 37* 12/23/2013 CREATININE 9.47* 12/23/2013 BCR 4 12/23/2013 CA 8.2* 12/23/2013 CA 6.1* 04/02/2012 PROT 6.0* 11/10/2013 ALB 3.5* 11/10/2013 GLOB 2.5 11/10/2013 BILITOT 0.6 11/10/2013 ALP 122* 11/10/2013 AST 18 11/10/2013 ALT 22 11/10/2013 EGFR 6* 12/23/2013 BMP: Lab Results Component Value Date NA 130* 12/23/2013 K 3.5 12/23/2013 CL 88* 12/23/2013 CO2 30 12/23/2013 ANIONGAP 16 12/23/2013 GLUF 101* 12/23/2013 BUN 37* 12/23/2013 CREATININE 9.47* 12/23/2013 BCR 4 12/23/2013 CA 8.2* 12/23/2013 CA 6.1* 04/02/2012 EGFR 6* 12/23/2013 PT/INR: Lab Results Component Value Date INR 1.0 12/23/2013 PTT: Lab Results Component Value Date APTT 28 12/23/2013 [APTT PROBLEM LIST Patient Active Problem List Diagnosis [...] answered to their satisfaction. Primary Care Physician: [facility] DARRELL Medellin 02/01/2014 *CORE MEASURES REMINDER: If the patient has a known or suspected infection prior to surger y, please add diagnosis to the problem list (consider: Infection 136.9). documented in this encounter Miscellaneous Notes Op Note - Oskar Meyer MD - 02/03/2014 11:19 AM PDTFormatting of this note might be differen t from the original. Brief Op Note by Oskar Meyer MD at 02/03/141118 Author: Oskar Meyer MD Service: Vascular Surgery Author Type: Physician Filed: 02/03/14 1121 Date of Service: 02/03/141118 Status: Signed Professor Of Mechanical Engineering: Oskar Meyer MD (Physician) [facility] Service: Vascular Surgery Brief Op Note Pre-operative Diagnosis: ESRD and need for right arm fistula creation Post-operative Diagnosis: Same Procedure(s): Right upper extremity venogram Surgeon: Oskar Meyer MD Metal Smelter(s): None Anesthesia: None Estimated Blood Loss: Less Than 10 ml (Minimal) Other: Contrast - 40 ml of isoview 250 Indications: See pre-operative history and physical. Findings: Upper extremity veins small but basilic vein on right arm appeared adequate for fistula creation. Right subclavian vein patent. SVC patent but had high grade stenosis whi ch may need intervention after fistula creation if patient develops right sided swelling. Complications: None apparent Condition: Stable See dictated operative report for full details. Oskar Meyer MD 02/03/2014 documented in this encoun ter Plan of Treatment Not on filedocumented as of this encounter Procedures + +--------+ + + + | Procedure Name | Priori | Date/Time | Associated Diagnosis | Comments | | | ty | | | | + +--------+ + + + | IR VENOGRAM | Routin | 02/03/2014 | | Results for this | | UPPER/LOWER | e | 11:25 AM | | procedure are in the | | EXTREMITY | | PDT | | results section. | + +--------+ + + + documented in this encounter Results IR Venogram Upper/lower extremity (02/03/2014 11:25 AM PDT) + + | Specimen | + + | | + + + + + | Narrative | Performed At | + + + | PREOPERATIVE DIAGNOSIS End-stage renal disease, need for right arm | | | fistula creation POSTOPERATIVE DIAGNOSIS End-stage renal disease, | | | need for right arm fistula creation PROCEDURE Right arm venogram | | | SURGEON Oskar Meyer MD COMBINE MECHANIC None ANESTHESIA Moderate | | | sedation, local anesthesia. ESTIMATED BLOOD LOSS Minimal. | | | CONTRAST USED 40 mL of Isovue-250 INDICATIONS Mr. Potter is a | | | pleasant 48-year-old male with end-stage renal disease requiring new | | | fistula for dialysis access. Due to concern for central stenosis, a | | | venogram was performed to evaluate the central veins. FINDINGS | | | Right upper extremity veins were small but basilic vein on the right | | | arm appeared adequate for fistula creation. The right subclavian vein | | | was patent but the superior vena cava had a high-grade stenosis which | | | may need intervention after fistula creation if patient develops | | | swelling. DESCRIPTION OF PROCEDURE The patient was properly | | | identified and brought to the catheterization lab. The patient was | | | placed supine on the catheterization lab table. Patient had an IV | | | placed in the right hand. A venogram was then performed through the | | | right hand access with the findings as described above. The patient | | | was taken to observation unit for further monitoring. IMPRESSION | | | 1. Small right cephalic vein but basilic vein on right arm appeared | | | adequate for fistula creation. 2. 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 | | | | | + + + + + | Procedure Note | + + | Néstor, Rad Conversion - 02/06/2019 10:59 AM PDT PREOPERATIVE DIAGNOSISEnd-stage renal | | disease, need for right arm fistula creation POSTOPERATIVE DIAGNOSISEnd-stage renal | | disease, need for right arm fistula creation PROCEDURERight arm venogram SURGEONOskar Meyer | | ASSISTANTNone ANESTHESIAModerate sedation, local anesthesia. ESTIMATED BLOOD | | LOSSMinimal. CONTRAST USED40 mL of Isovue-250 INDICATIONSMrRenato Potter is a pleasant | | 48-year-old male with end-stage renal disease requiring new fistula for dialysis access. | | Due to concern for central stenosis, a venogram was performed to evaluate the central | | veins. FINDINGSRight upper extremity veins were small but basilic vein on the right arm | | appeared adequate for fistula creation. The right subclavian vein was patent but the | | superior vena cava had a high-grade stenosis which may need intervention after fistula | | creation if patient develops swelling. DESCRIPTION OF PROCEDUREThe patient was properly | | identified and brought to the catheterization lab. The patient was placed supine on the | | catheterization lab table. Patient had an IV placed in the right hand. A venogram was | | then performed through the right hand access with the findings as described above. The | | patient was taken to observation unit for further monitoring. IMPRESSION1. Small right | | cephalic vein but basilic vein on right arm appeared adequate for fistula creation.2. 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 Electronically | | signed by Oskar Meyer MD on 02/08/2014 11:57 AM | |Minimal. | | | |CONTRAST USED | |40 mL of Isovue-250 | | | |INDICATIONS | |Mr. Potter is a pleasant 48-year-old male with end-stage renal disease requiring new fistula f or dialysis access. Due to concern for central stenosis, a venogram was performed to evaluat e the central veins. | | | |FINDINGS | |Right upper extremity veins were small but basilic vein on the right arm appeared adequate for fistula creation. The right subclavian vein was patent but the superior vena cava had a high-grade stenosis which may need | |intervention after fistula creation | |if patient develops swelling. | | | |DESCRIPTION OF PROCEDURE | |The patient was properly identified and brought to the catheterization lab. The patient was placed supine on the catheterization lab table. Patient had an IV placed in the right hand. A venogram was then performed | |through the right hand access with the | |findings as described above. The patient was taken to observation unit for further monitori ng. | | | |IMPRESSION | |1. Small right cephalic vein but basilic vein on right arm appeared adequate for fistula c reation. | |2. 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 | | | | | + + documented in this encounter Visit Diagnoses + + | Diagnosis | + + | ESRD (end stage renal disease) (HCC) End stage renal disease | + + documented in this encounter
--- OUTSIDE RECORDS SUMMARY | ~2019-12-30 | XMS | Encounter Summary ---
Demographics + + + | Address | [address] | | | [place] [address] | + + + | Home Phone [...] Author + + + | Author | [facility] | + + + | Organization | [facility] [employer] [facility] | + + + | Address | [...] Team Providers + +------+ + | Care Hospital Cleaning Specialist Name | Role | Phone | + +------+ + | Berenice Hicks | PCP | | + +------+ + Reason for Visit + + + | Reason | Comments | + + + | Financial Review | | + + + Encounter Details +--------+ + + + + | Date | Type | Department | Care Team | Description | +--------+ + + + + | 10/13/ | Documentati | Clinical | [facility] | Financial Review | | 2020 | on | Transplant Services | [address] | | | | | [address] | [place], | | | | | [place], | [place] [address] | | | | | [place] [address] | | | | | | [phone] | | | +--------+ + + + [...]
--- OUTSIDE RECORDS SUMMARY | ~2019-12-30 | XMS | Encounter Summary ---
Demographics + + + | Address | [address] | | | [place] [address] | + + + | Home Phone [...] Team Providers + +------+ + | Care Home Health Care Provider Name | Role | Phone | + +------+ + PCP | Unavailable | + +------+ + Encounter Details +--------+ + + + + | Date | Type | Department | Care Team | Description | +--------+ + + + + | 07// | Orders Only | [facility] | Provider, | | | 2018 | | SYSTEM GENERIC OP | [address] | | | | | [address] | [address] | | | | | [address] [place], [place] | [place] [address] | | | | | [address] | | | | | | [phone] | | | +--------+ + + + [...]
--- OUTSIDE RECORDS SUMMARY | ~2019-12-30 | XMS | Encounter Summary ---
Demographics + + + | Address | [address] | | | [place] [address] | + + + | Home Phone | | + + + | Preferred Language | Unknown | + + + | Marital Status | Unknown | + + + | Episcopal Affiliation | [id number] | + + + [...] Providers + +------+ + | Care Clinical Training Coordinator Name | Role | Phone | + +------+ + PCP | Unavailable | + +------+ + Encounter Details +--------+ + + + + | Date | Type | Department | Care Team | Description | +--------+ + + + + | 04/02/ | Hospital | [facility] | MilanjuliaDorarobi, | Acute renal failure | | 2011 - | Encounter | [facility] | [address] | ([facility]); Acidosis; | | | | CARE [address]LO[address] | [place] [address] | Hyperphosphatemia; | | 04/15/ | | [address] | [phone] | Rash and nonspecific | | 2011 | | [place], [place] | | skin eruption; | | | | [address] | | Renal failure, acute | | | | [phone] | | ([facility]); Vitamin d | | | | | | deficiency; | | | | | | Secondary | | | | | | hyperparathyroidism | | | | | | (of renal origin) | | | | | | ([facility]); Hypokalemia; | | | | | | [...] | | | | | | uncontrolled ([facility]); | | | | | | 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, | | | | | | continuous ([facility]); | | | | | | Eczema [...] disease) | | | | | | ([facility]); Hyponatremia; | | | | | | Hypoalbuminemia; | | | | | | Obesity (BMI | | | | | | 30-39.9); | | | | | | Unspecified asthma; | | | | | | Chest pain; Protein | | | | | | calorie malnutrition | | | | | | ([facility]); Anemia; | | | | | | Hyperkalemia; | | | | | | Uncontrolled | | | | | | diabetes mellitus | | | | | | ([facility]); | | | | | | Methamphetamine [...] Summaries by Vikram Chandra MD at 04/15/12 1226 Author: Vikram Chandra MD Service: Hospitalist Author Type: Physician Filed: 04/15/12 1233 Date of Service: 04/15/12 1226 Status: Signed Welfare Service Aide: Vikram Chandra MD (Physician) [facility] Service: Hospitalist Physician Discharge Summary Pt: Carol Potter AGE/SEX: 47 y.o. male ROOM: [facility]4451-1 PCP: Ashly Quick MD, MD : 1965 [...] also [facility], who [facility] by ambulance from [facility] . Was there at 04/01 at 2100 [...] time To facilitate IV antibiotic treatment on parmjit, he will be put on IV vancomycin [...] pathology specimen will also be reevaluated in [facility] -kidney biopsy shows advanced fibrotic changes with little chance of recovery. HD planned i n the [place] area He Had no CP, SOB, N/V, Diarrhea, Abdominal pain or JOHNSON. No constipation or change in bowel habits. [...] Behavior is normal. Judgment normal. LABS: Lab 04/14/12 0424 04/13/12 0451 04/12/12 1038 WBC 10.4 17.3* -- HGB 8.5* 7.0*|7.0* 6.9* HCT 24.7* 21.0*|21.0* 20.4* PLT 249 250 254 NEUTOPHILPCT 71.5 -- -- MONOPCT 9.9 -- -- Lab 04/15/12 0440 04/14/12 0424 04/13/12 0451 04/08/12 2153 NA 132* 129* 134* -- [...] Refills: 0 Associated Diagnoses: Hyperphosphatemia ergocalciferol (DRISDOL) 69204 UNITS capsule Take 1 capsule by mouth [...] dictation of summary. Signed: VIKRAM CHANDRA MD, FACP 04/15/2012 12:26 PM documented in this enc [...] Progress Notes Conversion Transaction, Provider Unknown - 04/15/2012 12:11 PM PDTFormatting of this note m ight be different from the original. Progress Notes by Devaughn Flores RN at 04/15/12 1211 Author: Devaughn Flores RN Service: (none) Author Type: Registered Nurse Filed: 04/15/12 1211 Date of Service: 04/15/12 1211 Status: Signed Welfare Service Aide: Devaughn Flores RN (Registered Nurse) Took over care from Kristi DYE Cosmo Lang MD - 04/15/2012 11:21 AM PDTFormatting of this note might be different from the or iginal. Progress Notes by Cosmo Soria MD at 04/15/12 1121 Author: Cosmo Soria MD Service: Nephrology Author Type: Physician Filed: 04/16/12 09 Date of Service: 04/15/12 112 Status: Signed Welfare Service Aide: Cosmo Soria MD (Physician) PCP is Ashly [...] Left UE PICC line in situ. CASE: [id number] PATIENT: CAROL POTTER Surgical Pathology Report PATHOLOGIC [...] with a Newman catheter in place. CASE: [id number] PATIENT: CAROL TARIQ Surgical Pathology Report PATHOLOGIC DIAGNOSIS: SKIN, RIGHT [...] be set up for maintenance HD at [place] under Dr. Timmons. BP: Better controlled. However [...] 36 minutes involved in coordination of care wi primary care provider and ID. Plan of care was understood and verbalized back. COSMO SORIA MD 04/16/2012 duarda Elsie S - 04/15/2012 10:51 AM PDT Progress Notes by Elsie Lerner MD at 04/15/12 1051 Author: Elsie Lerner MD Service: (none) Author Type: Physician Filed: 04/15/12 1142 Date of Service: 04/15/12 1051 Status: Signed Welfare Service Aide: Elsie Lerner MD (Physician) [facility] Service: Infectious Disease Progress Note Hospital [...] lesions at upper extremities. LUE PICC at [facility]. There is a small ulcer with yel [...] RECENT OR PAST INFECTION. Testing performed at [place] [address] HSV II AB,IGG 0.35 <0.90 IV Comments: [...] II GG2 RECOMBINANT ANTIGENS. Testing performed at [place] [address] HSV, IGM 0.79 <0.91 OD RATIO Comments: <0.91 NEGATIVE: NO CLINICALLY SIGNIFICANT LEVEL OF HSV IGM ANTIBODIES DETECTED. DUE TO THE CROSS REACTIVITY BETWEEN HSV 1 AND HSV 2 IGM ANTIBODIES, THIS ASSAY CANNOT DISCRIMINATE BETWEEN THEM AND MEASURES HSV TYPE 1 AND TYPE 2 COMBINED IGM ANTIBODIES. Testing performed at [place] [address] Lab Flowsheet Order Details View Encounter Lab and Collection Details Routing Result History Specimen Collected: 04/06/12 3:45 PM Last Resulted: 04/08/12 12:12 PM Encounter View Encounter Result Information Abnormal Status: Final result (04/08/2012 12:12 PM) Provider Status: Ordered Microbiology Results (last 14 days) Procedure Component Value Units Date/Time Blood culture, 2 of 2 [[id number]] (Abnormal) Collected:04/12/12 1231 Order Status:Completed Updated:04/15/12 0910 Specimen Information:Blood Specimen Description BLOOD, PERIPHERAL DRAW Specimen Description Result: Testing performed at [facility];[address] [place] [address];[place] [address] SPECIAL REQUESTS L WRIST SPECIAL REQUESTS Result: Testing performed at [facility];[address] [place] [address];[place] [address] GRAM STAIN Result: GRAM POSITIVE COCCI SEEN ON GRAM STAIN FROM AEROBIC BOTTLE SMEAR RESULTS CALLED TO AND READ BACK BY: SOULEYMANE Levine IN 4RP AT 0732 ON [id number] BY CRK GRAM STAIN GRAM POSITIVE COCCI IN CLUSTERS GRAM STAIN Result: CALLED RESULTS TO BEST Tan ON 4RP AT 1140 ON 04/14/12 [facility] RESULTS REPEATED GRAM STAIN Result: Testing performed at [facility];[address] [place] [address]47 CULTURE STAPHYLOCOCCUS AUREUS (A) CULTURE GROWTH IN TWO OF TWO BOTTLES (A) CULTURE TIME TO DETECTION: 0.71 DAYS CULTURE Result: Testing performed at [facility], [address] [place] [address]889 REPORT STATUS 04/15/2012 FINAL Organism STAPHYLOCOCCUS AUREUS [...] STAPHYLOCOCCUS AUREUS Blood culture, 1 of 2 [[id number]] (Abnormal) Collected:04/12/121199 Order Status:Completed Updated:04/15/12946 Specimen Information:Blood Specimen Description BLOOD, LINE DRAW Specimen Description Result: Testing performed at [facility];[address] [place] [address] 48368 SPECIAL REQUESTS ART SPECIAL REQUESTS Result: Testing performed at [facility];[address] [place] [address] 26258 GRAM STAIN Result: GRAM POSITIVE COCCI SEEN ON GRAM STAIN FROM AEROBIC BOTTLE SMEAR RESULTS CALLED TO AND READ BACK BY: DEIDRE Mccullough IN 4RP AT 0611 ON [id number] BY GEM GRAM STAIN Result: Testing performed at [facility];[address] [place] [address] 99448 CULTURE STAPHYLOCOCCUS AUREUS (A) CULTURE GROWTH IN ONE OF TWO BOTTLES (A) CULTURE TIME TO DETECTION: 0.65 DAYS CULTURE Result: Testing performed at [facility], [address] [place] [address] 67569 REPORT STATUS 04/15/2012 FINAL Organism STAPHYLOCOCCUS AUREUS [...] STAPHYLOCOCCUS AUREUS (TERRANCE) STAPHYLOCOCCUS AUREUS Blood culture [[id number]] (Abnormal) Collected:04/11/12 0217 Order Status:Completed Updated:04/15/12 0941 Specimen Information:Blood Specimen Description BLOOD, PERIPHERAL DRAW Specimen Description Result: Testing performed at [facility];[address] [place] [address] SPECIAL REQUESTS RHAND SPECIAL REQUESTS Result: Testing performed at [facility];[address] [place] [address] 54076 GRAM STAIN Result: GRAM POSITIVE COCCI IN CLUSTERS SEEN IN AEROBIC BOTTLE SMEAR RESULTS CALLED TO AND READ BACK BY: DAVID Díaz/4RP 1921 JCM (A) GRAM STAIN Result: GRAM POSITIVE COCCI IN CLUSTERS SEEN ON SMEAR OF ANAEROBIC BOTTLE GRAM STAIN Result: CALLED TO 4RP/DAVID Díaz ON 04/14/12 AT 0657 BY READBACK GRAM STAIN Result: Testing performed at [facility];[address] [place] [address] 79831 CULTURE STAPHYLOCOCCUS AUREUS (A) CULTURE TIME TO DETECTION: 0.67 DAYS CULTURE GROWTH IN TWO OF TWO BOTTLES (A) CULTURE Result: VANCOMYCIN TERRANCE IS LESS THAN OR EQUAL TO 0.5 Mcg/mL CULTURE Result: Testing performed at [facility], [address] [place] [address] 00231 REPORT STATUS 04/15/2012 FINAL Organism STAPHYLOCOCCUS AUREUS [...] STAPHYLOCOCCUS AUREUS Blood culture, 1 of 2 [[id number]] (Abnormal) Collected:04/10/12 1532 Order Status:Completed Updated:04/15/1238 Specimen Information:Blood Specimen Description BLOOD, PERIPHERAL DRAW Specimen Description Result: Testing performed at [facility];[address] [place] [address] 55860 SPECIAL REQUESTS LAC SPECIAL REQUESTS Result: Testing performed at [facility];[address] [place] [address] 39359 GRAM STAIN Result: GRAM POSITIVE COCCI SEEN ON GRAM STAIN FROM AEROBIC AND ANAEROBIC BOTTLES SMEAR RESULTS CALLED TO AND READ BACK BY: LINDA FLOWERS 4RP AT 1340 ON [id number] BY CRK GRAM STAIN Result: Testing performed at [facility];[address] [place] [address] 78410 CULTURE STAPHYLOCOCCUS AUREUS (A) CULTURE STREPTOCOCCUS ANGINOSUS (A) CULTURE TIME TO DETECTION: 0.85 DAYS CULTURE GROWTH IN TWO OF TWO BOTTLES (A) CULTURE Result: Testing performed at [facility], [address] [place] [address] REPORT STATUS 04/15/2012 FINAL Organism STAPHYLOCOCCUS AUREUS [...] STREPTOCOCCUS ANGINOSUS Fecal occult blood (in house) [[id number]] (Abnormal) Collected:04/15/1208 Order Status:Completed Updated:04/15/12635 Specimen Information:Stool Fecal Occult Blood POSITIVE (A) Comment: Testing performed at [facility];[address] [place] [address] 25213 Fecal occult blood (in house) [[id number]] (Abnormal) Collected:04/14/122049 Order Status:Completed Updated:04/14/122114 Specimen Information:Stool Fecal Occult Blood POSITIVE (A) Comment: Testing performed at [facility];[address] [place] [address] 33006 Blood culture, 2 of 2 [[id number]] Collected:04/13/12 1115 Order Status:Completed Updated:04/14/12654 Specimen Information:Blood Specimen Description BLOOD, PERIPHERAL DRAW Specimen Description Result: Testing performed at [facility];[address] [place] [address] 16508 SPECIAL REQUESTS L WRIST SPECIAL REQUESTS Result: Testing performed at [facility];[address] [place] [address] 92525 CULTURE NO GROWTH AT THIS TIME CULTURE Result: Testing performed at [facility];[address] [place] [address] 99889 REPORT STATUS PENDING Blood culture, 1 of 2 [[id number]] Collected:04/13/12 1109 Order Status:Completed Updated:04/14/12 0655 Specimen Information:Blood Specimen Description BLOOD, PERIPHERAL DRAW Specimen Description Result: Testing performed at [facility];[address] [place] [address] 39332 SPECIAL REQUESTS L ARM SPECIAL REQUESTS Result: Testing performed at [facility];[address] [place] [address] 88893 CULTURE NO GROWTH AT THIS TIME CULTURE Result: Testing performed at [facility];[address] [place] [address] 63560 REPORT STATUS PENDING Blood culture, 2 of 2 [[id number]] (Abnormal) Collected:04/10/12 1542 Order Status:Completed Updated:04/13/12 0732 Specimen Information:Blood Specimen Description BLOOD, PERIPHERAL DRAW Specimen Description Result: Testing performed at [facility];[address] [place] [address] 97465 SPECIAL REQUESTS RAC SPECIAL REQUESTS Result: Testing performed at [facility];[address] [place] [address] 35934 GRAM STAIN Result: GRAM POSITIVE COCCI IN CLUSTERS SEEN ON SMEAR FROM AEROBIC BOTTLE (A) GRAM STAIN Result: SMEAR RESULTS CALLED TO AND READ BACK BY: YAZMIN DUNCAN, 04/10/12 AT 2356 BY GRAM STAIN Result: Testing performed at [facility];[address] [place] [address] 22021 CULTURE STAPHYLOCOCCUS AUREUS (A) CULTURE GROWTH IN ONE OF TWO BOTTLES (A) CULTURE TIME TO DETECTION: 0.31 DAYS CULTURE VANCOMYCIN TERRANCE IS EQUAL TO ONE. CULTURE Result: Testing performed at [facility], [address] [place] [address] REPORT STATUS 04/13/2012 FINAL Organism STAPHYLOCOCCUS AUREUS [...] (TERRANCE) STAPHYLOCOCCUS AUREUS Culture, drain tube tip [[id number]] (Abnormal) Collected:04/10/12 1905 Order Status:Completed Updated:04/12/12 1136 Specimen Information:Other / Catheter Tip Specimen Description CATHETER TIP Specimen Description Result: Testing performed at [facility];[address] [place] [address] 08203 CULTURE >15 COLONIES STAPHYLOCOCCUS AUREUS (A) CULTURE Result: THIS S. AUREUS IS SUSCEPTIBLE TO METHICILLIN (A) CULTURE Result: Testing performed at [facility], [address] [place] [address]6320 REPORT STATUS 04/12/2012 FINAL AFB culture and smear [[id number]] Collected:04/03/12 1415 Order Status:Completed Updated:04/11/12 1251 Specimen Information:Sputum Specimen Description SPUTUM Specimen Description Result: Testing performed at [facility];[address] [place] [address] 19504 AFB STAIN NO ACID FAST BACILLI SEEN AFB STAIN Result: Testing performed at [facility], [address] [place] [address], [place] [address] CULTURE NO GROWTH AT THIS TIME CULTURE Result: Testing performed at [facility], [address] [place] [address] 55587 REPORT STATUS PENDING Urine culture [[id number]] (Abnormal) Collected:04/07/12 1336 Order Status:Completed Updated:04/09/12 1356 Specimen Information:Urine Specimen Description URINE, COLLECTION NOT GIVEN Specimen Description Result: Testing performed at [facility];[address] [place] [address] 87558 CULTURE >100,000 CFU/ML STAPHYLOCOCCUS AUREUS (A) CULTURE Result: Testing performed at [facility], [address] [place] [address] 71608 REPORT STATUS 04/09/2012 FINAL Organism STAPHYLOCOCCUS AUREUS [...] STAPHYLOCOCCUS AUREUS Blood culture, 1 of 2 [[id number]] Collected:04/03/12 1415 Order Status:Completed Updated:04/09/12 0702 Specimen Information:Blood Specimen Description BLOOD, PERIPHERAL DRAW Specimen Description Result: Testing performed at [facility];[address] [place] [address] 31594 SPECIAL REQUESTS LAC SPECIAL REQUESTS Result: Testing performed at [facility];[address] [place] [address] 04400 CULTURE NO GROWTH IN 5 DAYS. CULTURE Result: Testing performed at [facility];[address] [place] [address] 38781 REPORT STATUS 04/09/2012 FINAL Blood culture, 2 of 2 [[id number]] Collected:04/03/12 1415 Order Status:Completed Updated:04/09/12 0702 Specimen Information:Blood Specimen Description BLOOD, PERIPHERAL DRAW Specimen Description Result: Testing performed at [facility];[address] [place] [address] 59153 SPECIAL REQUESTS RAC SPECIAL REQUESTS Result: Testing performed at [facility];[address] [place] [address] 65843 CULTURE NO GROWTH IN 5 DAYS. CULTURE Result: Testing performed at [facility];[address] [place] [address] 20393 REPORT STATUS 04/09/2012 FINAL Urine culture [[id number]] (Abnormal) Collected:04/06/12 0022 Order Status:Completed Updated:04/08/12 1505 Specimen Description URINE, COLLECTION NOT GIVEN Specimen Description Result: Testing performed at [facility];[address] [place] [address] 45634 CULTURE >100,000 CFU/ML STAPHYLOCOCCUS AUREUS (A) CULTURE Result: Testing performed at [facility], [address] [place] [address] 50289 REPORT STATUS 04/08/2012 FINAL Organism STAPHYLOCOCCUS AUREUS [...] (TERRANCE) >100,000 CFU/ML STAPHYLOCOCCUS AUREUS Urine Culture [[id number]] Collected:04/02/12 0229 Order Status:Completed Updated:04/04/12 195 Specimen Information:Urine Specimen Description CATHETERIZED URINE Specimen Description Result: Testing performed at [facility];[address] [place] [address] 60994 CULTURE NO GROWTH 2 DAYS CULTURE Result: Testing performed at [facility], [address] [place] [address] 48005 REPORT STATUS 04/04/2012 FINAL PROBLEM LIST Active [...] pathology specimen will also be reevaluated in [facility] -kidney biopsy shows advanced fibrotic changes with little chance of recovery. HD planned in the [place] area ID follow up in a week Code Status: Full Code ELSIE LERNER MD 04/15/2012 lsie Lerner - 04/14/2012 3:46 PM PDT Progress Notes by Elsie Lerner MD at 04/14/12 3678 Author: Elsie Lerner MD Service: (none) Author Type: Physician Filed: 04/14/12 7412 Date of Service: 04/14/121545 Status: Signed Welfare Service Aide: Elsie Lerner MD (Physician) [facility] Service: Infectious Disease Progress Note Hospital [...] 97.6 kg (215 lb 2.7 oz) (04/14 408) Physical Exam Vitals reviewed. Constitutional: He appears [...] ions at upper extremities. LUE PICC at [facility]. Psychiatric: Thought content normal. DATA [...] Units Date/Time Blood culture, 2 of 2 [[id number]] (Abnormal) Collected:04/12/12 1231 Order Status:Completed Updated:04/14/12 1434 Specimen Information:Blood Specimen Description BLOOD, PERIPHERAL DRAW Specimen Description Result: Testing performed at [facility];[address] [place] [address];[place] [address] SPECIAL REQUESTS L WRIST SPECIAL REQUESTS Result: Testing performed at [facility];[address] [place] [address] 67728 GRAM STAIN Result: GRAM POSITIVE COCCI SEEN ON GRAM STAIN FROM AEROBIC BOTTLE SMEAR RESULTS CALLED TO AND READ BACK BY: SOULEYMANE Levine IN 4RP AT 0732 ON [id number] BY ELISK GRAM STAIN GRAM POSITIVE COCCI IN CLUSTERS GRAM STAIN Result: CALLED RESULTS TO BEST Tan ON 4RP AT 1140 ON 04/14/12 [facility] RESULTS REPEATED GRAM STAIN Result: Testing performed at [facility];[address] [place] [address] 83987 CULTURE Result: STAPHYLOCOCCUS AUREUS SUSCEPTIBILITY TO FOLLOW (A) CULTURE GROWTH IN TWO OF TWO BOTTLES (A) CULTURE TIME TO DETECTION: 0.71 DAYS CULTURE Result: Testing performed at [facility], [address] [place] [address] 00562 REPORT STATUS PENDING Blood culture [[id number]] (Abnormal) Collected:04/11/12 0217 Order Status:Completed Updated:04/14/12 0854 Specimen Information:Blood Specimen Description BLOOD, PERIPHERAL DRAW Specimen Description Result: Testing performed at [facility];[address] [place] [address] 94745 SPECIAL REQUESTS RHAND SPECIAL REQUESTS Result: Testing performed at [facility];[address] [place] [address] 32096 GRAM STAIN Result: GRAM POSITIVE COCCI IN CLUSTERS SEEN IN AEROBIC BOTTLE SMEAR RESULTS CALLED TO AND READ BACK BY: DAVID Díaz/4RP 1921 JCM (A) GRAM STAIN Result: GRAM POSITIVE COCCI IN CLUSTERS SEEN ON SMEAR OF ANAEROBIC BOTTLE GRAM STAIN Result: CALLED TO 4RP/DAVID Díaz ON 04/14/12 AT 0657 BY LL READBACK GRAM STAIN Result: Testing performed at [facility];[address] [place] [address] 30723 CULTURE STAPHYLOCOCCUS AUREUS (A) CULTURE TIME TO DETECTION: 0.67 DAYS CULTURE GROWTH IN TWO OF TWO BOTTLES (A) CULTURE Result: VANCOMYCIN TERRANCE IS LESS THAN OR EQUAL TO 0.5 Mcg/mL CULTURE Result: Testing performed at [facility], [address] [place] [address] 04237 REPORT STATUS 04/14/2012 FINAL Organism STAPHYLOCOCCUS AUREUS Culture & Susceptibility STAPHYLOCOCCUS AUREUS Antibiotic Sensitivity Microscan Status Gentamicin Sensitive SUSCEPTIBLE Final Method: TERRANCE Moxifloxacin Sensitive SUSCEPTIBLE Final Method: TERRANCE Oxacillin Sensitive SUSCEPTIBLE Final Method: TERRANCE Penicillin G Resistant RESISTANT Final Method: TERRANCE Tetracycline Sensitive SUSCEPTIBLE Final Method: TERRANCE Trimethoprim + Sulfamethoxazole Sensitive SUSCEPTIBLE Final Method: TRERANCE Vancomycin Sensitive SUSCEPTIBLE Final Method: TERRANCE Comments STAPHYLOCOCCUS AUREUS (TERRANCE) STAPHYLOCOCCUS AUREUS Blood culture, 1 of 2 [[id number]] (Abnormal) Collected:04/12/12 1200 Order Status:Completed Updated:04/14/12 0843 Specimen Information:Blood Specimen Description BLOOD, LINE DRAW Specimen Description Result: Testing performed at [facility];[address] [place] [address] 06011 SPECIAL REQUESTS ART SPECIAL REQUESTS Result: Testing performed at [facility];[address] [place] [address] 06285 GRAM STAIN Result: GRAM POSITIVE COCCI SEEN ON GRAM STAIN FROM AEROBIC BOTTLE SMEAR RESULTS CALLED TO AND READ BACK BY: TUNDE. IN 4RP AT 0611 ON [id number] BY CRK GRAM STAIN Result: Testing performed at [facility];[address] [place] [address] 20673 CULTURE Result: STAPHYLOCOCCUS AUREUS SUSCEPTIBILITY TO FOLLOW (A) CULTURE GROWTH IN ONE OF TWO BOTTLES (A) CULTURE TIME TO DETECTION: 0.65 DAYS CULTURE Result: Testing performed at [facility], [address] [place] [address] 42671 REPORT STATUS PENDING Blood culture, 1 of 2 [[id number]] (Abnormal) Collected:04/10/12 1532 Order Status:Completed Updated:04/14/12 0805 Specimen Information:Blood Specimen Description BLOOD, PERIPHERAL DRAW Specimen Description Result: Testing performed at [facility];[address] [place] [address] 76529 SPECIAL REQUESTS LAC SPECIAL REQUESTS Result: Testing performed at [facility];[address] [place] [address] 12193 GRAM STAIN Result: GRAM POSITIVE COCCI SEEN ON GRAM STAIN FROM AEROBIC AND ANAEROBIC BOTTLES SMEAR RESULTS CALLED TO AND READ BACK BY: LINDA Mccullough IN 4RP AT 1340 ON [id number] BY CRK GRAM STAIN Result: Testing performed at [facility];[address] [place] [address] 47742 CULTURE STAPHYLOCOCCUS AUREUS (A) CULTURE Result: STREPTOCOCCUS ANGINOSUS SUSCEPTIBILITY TO FOLLOW (A) CULTURE TIME TO DETECTION: 0.85 DAYS CULTURE GROWTH IN TWO OF TWO BOTTLES (A) CULTURE Result: Testing performed at [facility], [address] [place] [address], [place] [address] REPORT STATUS PENDING Organism STAPHYLOCOCCUS AUREUS Culture [...] STAPHYLOCOCCUS AUREUS Blood culture, 2 of 2 [[id number]] Collected:04/13/12 1115 Order Status:Completed Updated:04/14/12 0655 Specimen Information:Blood Specimen Description BLOOD, PERIPHERAL DRAW Specimen Description Result: Testing performed at [facility];[address] [place] [id number] SPECIAL REQUESTS L WRIST SPECIAL REQUESTS Result: Testing performed at [facility];[address] [place] [address] 46994 CULTURE NO GROWTH AT THIS TIME CULTURE Result: Testing performed at [facility];[address] [place] [address] 43318 REPORT STATUS PENDING Blood culture, 1 of 2 [[id number]] Collected:04/13/12 1109 Order Status:Completed Updated:04/14/12 0655 Specimen Information:Blood Specimen Description BLOOD, PERIPHERAL DRAW Specimen Description Result: Testing performed at [facility];[address] [place] [address] 22399 SPECIAL REQUESTS L ARM SPECIAL REQUESTS Result: Testing performed at [facility];[address] [place] [address] 95979 CULTURE NO GROWTH AT THIS TIME CULTURE Result: Testing performed at [facility];[address] [place] [address] 57620 REPORT STATUS PENDING Blood culture, 2 of 2 [[id number]] (Abnormal) Collected:04/10/12 1542 Order Status:Completed Updated:04/13/12 0732 Specimen Information:Blood Specimen Description BLOOD, PERIPHERAL DRAW Specimen Description Result: Testing performed at [facility];[address] [place] [address] 44328 SPECIAL REQUESTS RAC SPECIAL REQUESTS Result: Testing performed at [facility];[address] [place] [address] 72902 GRAM STAIN Result: GRAM POSITIVE COCCI IN CLUSTERS SEEN ON SMEAR FROM AEROBIC BOTTLE (A) GRAM STAIN Result: SMEAR RESULTS CALLED TO AND READ BACK BY: YAZMIN DUNCAN, 04/10/12 AT 2356 BY KM GRAM STAIN Result: Testing performed at [facility];[address] [place] [address] 06015 CULTURE STAPHYLOCOCCUS AUREUS (A) CULTURE GROWTH IN ONE OF TWO BOTTLES (A) CULTURE TIME TO DETECTION: 0.31 DAYS CULTURE VANCOMYCIN TERRANCE IS EQUAL TO ONE. CULTURE Result: Testing performed at [facility], [address] [place] [address] REPORT STATUS 04/13/2012 FINAL Organism STAPHYLOCOCCUS AUREUS [...] (TERRANCE) STAPHYLOCOCCUS AUREUS Culture, drain tube tip [[id number]] (Abnormal) Collected:04/10/12 1905 Order Status:Completed Updated:04/12/12 1136 Specimen Information:Other / Catheter Tip Specimen Description CATHETER TIP Specimen Description Result: Testing performed at [facility];[address] [place] [address] 61909 CULTURE >15 COLONIES STAPHYLOCOCCUS AUREUS (A) CULTURE Result: THIS S. AUREUS IS SUSCEPTIBLE TO METHICILLIN (A) CULTURE Result: Testing performed at [facility], [address] [place] [address] 85408 REPORT STATUS 04/12/2012 FINAL AFB culture and smear [[id number]] Collected:04/03/12 1415 Order Status:Completed Updated:04/11/12 1251 Specimen Information:Sputum Specimen Description SPUTUM Specimen Description Result: Testing performed at [facility];[address] [place] [address] 84078 AFB STAIN NO ACID FAST BACILLI SEEN AFB STAIN Result: Testing performed at [facility], [address] [place] [address] 37475 CULTURE NO GROWTH AT THIS TIME CULTURE Result: Testing performed at [facility], [address] [place] [address] 26310 REPORT STATUS PENDING Urine culture [[id number]] (Abnormal) Collected:04/07/12 1336 Order Status:Completed Updated:04/09/12 1356 Specimen Information:Urine Specimen Description URINE, COLLECTION NOT GIVEN Specimen Description Result: Testing performed at [facility];[address] [place] [address] 33429 CULTURE >100,000 CFU/ML STAPHYLOCOCCUS AUREUS (A) CULTURE Result: Testing performed at [facility], [address] [place] [address] 08904 REPORT STATUS 04/09/2012 FINAL Organism STAPHYLOCOCCUS AUREUS [...] STAPHYLOCOCCUS AUREUS Blood culture, 1 of 2 [[id number]] Collected:04/03/12 1415 Order Status:Completed Updated:04/09/12701 Specimen Information:Blood Specimen Description BLOOD, PERIPHERAL DRAW Specimen Description Result: Testing performed at [facility];[address] [place] [address] 34751 SPECIAL REQUESTS LAC SPECIAL REQUESTS Result: Testing performed at [facility];[address] [place] [address] 47898 CULTURE NO GROWTH IN 5 DAYS. CULTURE Result: Testing performed at [facility];[address] [place] [address] 86869 REPORT STATUS 04/09/2012 FINAL Blood culture, 2 of 2 [[id number]] Collected:04/03/121414 Order Status:Completed Updated:04/09/12701 Specimen Information:Blood Specimen Description BLOOD, PERIPHERAL DRAW Specimen Description Result: Testing performed at [facility];[address] [place] [address] 95372 SPECIAL REQUESTS RAC SPECIAL REQUESTS Result: Testing performed at [facility];[address] [place] [address] 03562 CULTURE NO GROWTH IN 5 DAYS. CULTURE Result: Testing performed at [facility];[address] [place] [address] 90899 REPORT STATUS 04/09/2012 FINAL Urine culture [[id number]] (Abnormal) Collected:04/06/12 0022 Order Status:Completed Updated:04/08/12 1505 Specimen Description URINE, COLLECTION NOT GIVEN Specimen Description Result: Testing performed at [facility];[address] [place] [address] 36691 CULTURE >100,000 CFU/ML STAPHYLOCOCCUS AUREUS (A) CULTURE Result: Testing performed at [facility], [address] [place] [address] REPORT STATUS 04/08/2012 FINAL Organism STAPHYLOCOCCUS AUREUS [...] (TERRANCE) >100,000 CFU/ML STAPHYLOCOCCUS AUREUS Urine Culture [[id number]] Collected:04/02/12 0229 Order Status:Completed Updated:04/04/121954 Specimen Information:Urine Specimen Description CATHETERIZED URINE Specimen Description Result: Testing performed at [facility];[address] [facility];[place] [address] CULTURE NO GROWTH 2 DAYS CULTURE Result: Testing performed at [facility], [address] [place] [address] REPORT STATUS 04/04/2012 FINAL Radiology Results (last 7 days) Procedure Component Value Units Date/Time CT upper extremity left w contrast [[id number]] Resulted:04/14/12236 Order Status:Completed Updated:04/14/12237 Narrative: CT LEFT [...] 2012 2:37AM CT abdomen pelvis with contrast [[id number]] Resulted:04/13/122319 Order Status:Completed Updated:04/13/122320 Narrative: CT ABDOMEN [...] 2012 11:20PM Ultrasound doppler venous arm left [[id number]] Collected:04/11/12 1901 Order Status:Completed Updated:04/11/121909 Narrative: CAROL POTTER US DOPPLER VENOUS ARM LEFT [...] vein thrombosis. Ultrasound doppler venous arm right [[id number]] Collected:04/10/12 2306 Order Status:Completed Updated:04/10/12 231 Narrative: CAROL POTTER US DOPPLER VENOUS ARM RIGHT 04/10/2012 9:15 [...] at 04/10/2012 11:11 PM. needle biopsy kidney [[id number]] Collected:04/10/121723 Order Status:Completed Updated:04/10/121733 Narrative: HISTORY: Renal failure. [...] to initiation of the procedure. Which ever kidn ey was easier to access would be biopsied. [...] Date of Service: 04/14/12 1002 Status: Signed Welfare Service Aide: Cosmo Soria MD (Physician) PCP is Ashly [...] Left UE PICC line in situ. CASE: [id number] PATIENT: CAROL POTTER Surgical Pathology Report PATHOLOGIC [...] be set up for maintenance HD at [place] under Dr. Timmons. BP: Better controlled. However [...] Dr. Lerner. COSMO SORIA MD 04/14/2012 onversion Transactyovany romo, Provider Unknown - 04/14/2012 8:43 AM PDT Progress Notes by Khadra Venegas RD, CDE at 04/14/12 08 Author: Khadra Venegas RD, CDE Service: (none) Author Type: Registered Dietitian Filed: 04/14/12843 Date of Service: 04/14/12842 Status: Signed Welfare Service Aide: Khadra Venegas RD, CDE (Hoof Trimmer) Elevated post prandial blood sugars. Recommend: Consider starting on 2 units of Novolog r outine with meals. Khadra Venegas RD, MPH, CDE, Hoof Trimmer 04/14/2012 8:44 AM avio Marrufo MD - 04/14/2012 7:45 AM PDTFormatting of this note might be different f rom the original. Progress Notes by Favio Dawkins MD at 04/14/12 3497 Author: Favio Dawkins MD Service: Hospitalist Author Type: Physician Filed: 04/14/12 4676 Date of Service: 04/14/1275 Status: Signed Welfare Service Aide: Favio Dawkins MD (Physician) [facility] Service: Hospitalist Progress Note Hospital Day: LOS: 12 days Patient Summary: 47 year old with history of Hyperlipidemia, Hypertension, Diabetes mellitus type II, Asthma , Thyroid disease ,Meth abuse , denies alcoholism, MSSA bacteremia previously Apr 01 disapp eared from repeat blood cultures then grown on culture on 04/11/12 also with [facility], who presented by ambulance from [facility]. Was there at 04/01 at 2100 due [...] 04/07/2012 IMAGING Xr Chest 2 View 04/02/2012 CAROLDIANELYS [...] skin eruption skin biopsy awaiting report From [facility] to call Dr. Dan of Patho if he does not call you tomorrow Vitamin d deficiency/Secondary hyperparathyroidism (of renal origin) continue weekly ergoc alciferol and 1000 mg calcium orally for Hypocalcemia continue to monitor electrolytes yelena y. Hypothyroidism continue with present Dose of Levothroid Eczema herpeticum? On acyclovir and skin biopsy done Per Dr. Dan of Path who I talked to today inflammatory changes seen and he sent slide to Katrina and stains still pending Hos pitlaist taking over should call him tomorrow if Dr. Dan does not call back in AM with re port that he said should be in tomorrow. MSSA Bacteremia recurrent - Yesterday's blood culture no growth after 2 successive positiv e cultures as discussed with Dr. Lerner continue ceftriaxone for now may need mcfp IV ABX like Vancomycin to begiven durng [...] and management as well as Computerized Physician Plant Pathologist. Told them somebody else from hospitalist service [...] 04/13/121929 Date of Service: 04/13/121929 Status: Signed Welfare Service Aide: Juan Lind RN (Registered Nurse) 1415 ~ [...] Notes by Cosmo Soria MD at 04/13/12 1256 Author: Cosmo Soria MD Service: Nephrology Author Type: Physician Filed: 04/13/12 3196 Date of Service: 04/13/12 0525 Status: Signed Welfare Service Aide: Cosmo Soria MD (Physician) PCP is Ashly [...] history: He was seen with his 04/11/2012. Carlo Potter says that he feels 'uncomfortable' today. [...] Service: (none) Author Type: Physician Filed: 04/13/12 2265 Date of Service: 04/13/12 1026 Status: Signed Welfare Service Aide: Kisha Tello MD (Physician) [facility] Service: Infectious Disease Progress Note Hospital [...] has not received any antibiotics. ID con sult was requested of her concern about his [...] mg Oral Daily DISCONTD: acyclovir 5 mg/kg (Acworth) Intravenous Q24H DISCONTD: DAPTOmycin (CUBICIN) IV 6 [...] PERIPHERAL DRAW Specimen Description Testing performed at [facility];[address] [place] [address];[place] [address] SPECIAL REQUESTS RHAND SPECIAL REQUESTS Testing performed at [facility];[address] [place] [address] 28791 GRAM STAIN GRAM POSITIVE COCCI IN CLUSTERS SEEN IN AEROBIC BOTTLE SMEAR RESULTS CALLED T O AND READ BACK BY: DAVID Díaz/4RP 1920 JCM A GRAM STAIN Testing performed at [facility];[address] [place] [address] 67839 CULTURE STAPHYLOCOCCUS AUREUS ISOLATED A CULTURE GROWTH IN ONE OF TWO BOTTLES A CATHETER TIP Specimen Description Testing performed at [facility];[address] [place] [address] 18541 CULTURE >15 COLONIES STAPHYLOCOCCUS AUREUS A PROBLEM [...] Service: (none) Author Type: Physician Filed: 04/13/12 3847 Date of Service: 04/13/12815 Status: Addendum Welfare Service Aide: Favio Dawkins MD (Physician) Related Notes: Original Note by Favio Dawkins MD (Physician) filed at 04/13/[address] [facility] Service: Hospitalist Progress Note Hospital Day: LOS: 11 days Patient Summary: who presented [facility] ambulance [facility] Was there at 04/01 at 2100 due [...] mg Oral Daily DISCONTD: acyclovir 5 mg/kg (Acworth) Intravenous Q24H DISCONTD: DAPTOmycin (CUBICIN) IV 6 [...] and management as well as Computerized Physician Plant Pathologist. Code Status: Full Code Favio Dawkins MD 04/13/20128:16 AM onversion Transaction, Provider Unknown - 04/13/2012 6:37 AM PDTFormatting of this note might be diff erent from the original. Progress Notes by Deidre Hudson RN at 04/13/12636 Author: Deidre Hudson RN Service: (none) Author Type: Registered Nurse Filed: 04/13/1239 Date of Service: 04/13/12636 Status: Signed Welfare Service Aide: Deidre Hudson RN (Registered Nurse) Hospitalist notified [...] 04/13/12232 Date of Service: 04/13/12232 Status: Signed Welfare Service Aide: Deidre Hudson RN (Registered Nurse) Pt denies pain, sob, or dizziness. Pt states getting rest, feeling better. Pt appears les s anxious, very cooperative. onver quique Transaction, Provider Unknown - 04/13/2012 1:40 AM PDT Progress Notes by Deidre Hudson RN at 04/13/12 0140 Author: Deidre Hudson RN Service: (none) Author Type: Registered Nurse Filed: 04/13/12 0146 Date of Service: 04/13/12139 Status: Signed Welfare Service Aide: Deidre Hudson RN (Registered Nurse) Pt in restroom upon entering room. Pt reminded to use call light for assistance getting ou t of bed. Pt states understanding. onver quique Transaction, Provider Unknown - 04/13/2012 1:00 AM PDT Progress Notes by Deidre Hudson RN at 04/13/12 0100 Author: Deidre Hudson RN Service: (none) Author Type: Registered Nurse Filed: 04/13/1299 Date of Service: 04/13/1299 Status: Signed Welfare Service Aide: Deidre Hudson RN (Registered Nurse) Pt resting, does not appear to be in any distress. Will continue to monitor. onver quique Transaction, Provider Unknown - 04/12/2012 9:30 PM PDT Progress Notes by Deidre Hudson RN at 04/12/122129 Author: Deidre Hudson RN Service: (none) Author Type: Registered Nurse Filed: 04/12/122214 Date of Service: 04/12/122129 Status: Signed Welfare Service Aide: Deidre Hudson RN (Registered Nurse) Spoke to [...] Notes by Cosmo Soria MD at 04/12/12 1154 Author: Cosmo Soria MD Service: Nephrology Author Type: Physician Filed: 04/12/12 1215 Date of Service: 04/12/12 1154 Status: Signed Welfare Service Aide: Cosmo Soria MD (Physician) PCP is Ashly [...] mg Oral Daily DISCONTD: acyclovir 5 mg/kg (Acworth) Intravenous Q24H DISCONTD: DAPTOmycin (CUBICIN) IV 6 [...] In: 4350 [P.O.:1300; Other:2800; IV Piggyback:250] Out: 02841 [Urine:1050; Other:9000; Stool:1] Weight change: -1.7 kg [...] should be done. I discussed with Dr. Dawkins he above at the time of this encounter. COSMO SORIA MD 04/12/2012 ulatisha, Kisha Rousseau MD - 04/12/2012 10:42 AM PDT Progress Notes by Kisha Tello MD at 04/12/12 1042 Author: Kisha Tello MD Service: (none) Author Type: Physician Filed: 04/12/12 7435 Date of Service: 04/12/12 104 Status: Signed Welfare Service Aide: Kisha Tello MD (Physician) [facility] Service: Infectious Disease Progress Note Hospital [...] skin biopsy still pending. Discussed with Dr. Weir kidney biopsy-no significant changes Seen. Patient remains [...] mg Oral Daily DISCONTD: acyclovir 5 mg/kg (Acworth) Intravenous Q24H DISCONTD: DAPTOmycin (CUBICIN) IV 6 [...] PERIPHERAL DRAW Specimen Description Testing performed at [facility];[address] [place] [address];[place] [address] SPECIAL REQUESTS RHAND SPECIAL REQUESTS Testing performed at [facility];[address] [place] [address];[place] [address] GRAM STAIN GRAM POSITIVE COCCI IN CLUSTERS SEEN IN AEROBIC BOTTLE SMEAR RESULTS CALLED T O AND READ BACK BY: DAVID Díaz/[facility] [address] [facility] A GRAM STAIN Testing performed at [facility];[address] [place] [address];[place] [address] CULTURE STAPHYLOCOCCUS AUREUS ISOLATED A CULTURE GROWTH IN ONE OF TWO BOTTLES A CATHETER TIP Specimen Description Testing performed at [facility];[address] [place] [address];[place] [address] CULTURE >15 COLONIES STAPHYLOCOCCUS AUREUS A PROBLEM [...] Status: Full Code Kisha Tello MD 04/12/2012 Jeanne malone, Favio Willoughby MD - 04/12/2012 8:20 AM PDT Progress Notes by Favio Dawkins MD at 04/12/12819 Author: Favio Dawkins MD Service: Hospitalist Author Type: Physician Filed: 04/13/121639 Date of Service: 04/12/12819 Status: Addendum Welfare Service Aide: Favio Dawkins MD (Physician) Related Notes: Original Note by Favio Dawkins MD (Physician) filed at 04/12/122019 [facility] Service: Hospitalist Progress Note Hospital Day: LOS: 10 days Patient Summary: who presented by ambulance from [facility]. Was there at 04/01 at 2100 due [...] Overnight: none Scheduled Medications acyclovir 5 mg/kg (Acworth) Intravenous Q24H amlodipine 10 mg Oral Daily [...] and relative tried to encourage him ag jose juanough today he does not seem to need [...] and management as well as Computerized Physician Plant Pathologist. Code Status: Full Code Favio Dawkins MD 04/12/20128:20 AM Tammie Lang MD - 04/11/2012 3:34 PM PDTFormatting of this note might be different from the malik lRenato Progress Notes by Cosmo Soria MD at 04/11/12 2644 Author: Cosmo Soria MD Service: Nephrology Author Type: Physician Filed: 04/11/12 7750 Date of Service: 04/11/12 1214 Status: Signed Welfare Service Aide: Cosmo Soria MD (Physician) PCP is Ashly [...] antecubital vein. Scheduled Medications acyclovir 5 mg/kg (Acworth) Intravenous Q24H amlodipine 10 mg Oral Daily [...] Date of Service: 04/11/12 1500 Status: Signed Welfare Service Aide: Salima Red RN (Registered Nurse) Dr Tello aware of blood cultures oster Kathy MSW - 04/11/2012 10:33 AM PDT Progress Notes by VANDANA Gonzalez at 04/11/12 1033 Author: VANDANA Gonzalez Service: (none) Author Type: Railroad Crane Operator Filed: 04/11/12 1034 Date of Service: 04/11/12 1033 Status: Signed Welfare Service Aide: VANDANA Gonzalez (Railroad Crane Operator) Patient's spouse reporting patient is set up for dialysis in [place] MWF, with [facility] to tra nsport to appts. Spouse reports the dialysis center is only 4 miles from their home. Kisha Adamson MD - 04/11/2012 9:05 AM PDT Progress Notes by Kisha Tello MD at 04/11/12 09 Author: Kisha Tello MD Service: (none) Author Type: Physician Filed: 04/11/12 4601 Date of Service: 04/11/12904 Status: Addendum Welfare Service Aide: Kisha Tello MD (Physician) Related Notes: Original Note by Kisha Tello MD (Physician) filed at 04/11/[address] [facility] Service: Infectious Disease Progress Note Hospital [...] discontinued. He has not received any antibiotics. KAYLEE jose miguel pierce was requested of her [...] up. . Scheduled Medications acyclovir 5 mg/kg (Acworth) Intravenous Q24H amlodipine 10 mg Oral Daily [...] on acyclovir for possibility of eczema herpeticum. [id number] is positive. Would await skin biopsy results [...] Status: Full Code Kisha Tello MD 04/11/2012 eva malone, Favio Willoughby MD - 04/11/2012 8:38 AM PDT Progress Notes by Favio Dawkins MD at 04/11/12837 Author: Favio Dawkins MD Service: (none) Author Type: Physician Filed: 04/11/12 1736 Date of Service: 04/11/12837 Status: Signed Welfare Service Aide: Favio Dawkins MD (Physician) [facility] Service: Hospitalist Progress Note Hospital Day: LOS: 9 days Patient Summary: who presented [facility] ambulance [facility] Was there at 04/01 at 2100 due [...] Overnight: none Scheduled Medications acyclovir 5 mg/kg (Acworth) Intravenous Q24H amlodipine 10 mg Oral Daily [...] Intake/Output Summary (Last 24 hours) at 04/11/12 0838 Last data filed at 04/11/12 0449 Gross [...] Had CT guided kidney biopsy today by IR jacquelin hollis results. Active Problems: Rhabdomyolysis Type II [...] Full Code Favio Dawkins MD 04/11/20128:38 AM rank Swenson MD - 04/10/2012 11:52 PM PDTFormatting of this note might be different from th e original. Progress Notes by Frank Wilson MD at 04/10/12 315 Author: Frank Wilson MD Service: (none) Author Type: Physician Filed: 04/11/12 0004 Date of Service: 04/10/122351 Status: Signed Welfare Service Aide: Frank Wilson MD (Physician) Partial Note US report from Radiologist received , consistent with: Ultrasound doppler venous arm right [[id number]] Collected:04/10/12 2306 Order Status:Comple gela Updated:04/10/122318 Narrative: CAROL POTTER US DOPPLER VENOUS ARM RIGHT 04/10/2012 9:15 [...] 04/10/121912 Date of Service: 04/10/121910 Status: Signed Welfare Service Aide: Nehal Coleman RN (Registered Nurse) Notified Dr. Dawkins of swelling, reddness and warm to touch of L UA IV site. New order s received and implemented. NEHAL COLEMAN RN oster Kathy MSW - 04/10/2012 12:38 PM PDT Progress Notes by VANDANA Gonzalez at 04/10/121237 Author: VANDANA Gonzalez Service: (none) Author Type: Railroad Crane Operator Filed: 04/10/12 1239 Date of Service: 04/10/12 123 Status: Signed Welfare Service Aide: VANDANA Gonzalez (Railroad Crane Operator) Pt is new dialysis, acute with Jeanine Glynn arranging chair appt in dialysis center in [facility]. Anticipate dc possibly Saturday. Family to transport. Kisha Adamson MD - 04/10/2012 11:05 AM PDT Progress Notes by Kisha Tello MD at 04/10/12 0932 Author: Kisha Tello MD Service: (none) Author Type: Physician Filed: 04/10/12 3327 Date of Service: 04/10/12 110 Status: Signed Welfare Service Aide: Kisha Tello MD (Physician) [facility] Service: Infectious Disease Progress Note Hospital [...] diarrhea . Scheduled Medications acyclovir 5 mg/kg (Acworth) Intravenous Q24H albumin human 12.5 g Intravenous [...] on acyclovir for possibility of eczema herpeticum. [id number] is positive. Would await skin biopsy results [...] Progress Notes by Marivel Ocampo at 04/10/12 1053 Author: Marivel Ocampo Service: (none) Author Type: Registered Nurse Filed: 04/10/12 1055 Date of Service: 04/10/12 1053 Status: Signed Welfare Service Aide: Marivel Ocampo Pt transported back to his room, after bx alert and oriented talking with staff. Dressing r ight posterior cdi. Hob elevated, in contact precautions. Pt stable at time of transport, re port called to Mehul dye. Iv patent and no changes to assessment. av Sean Willis - 04/10/2012 10:17 AM PDTFormatting of this note might be different from the origi nal. Progress Notes by Sean Solorzano MD at 04/10/12 1017 Author: Sean Solorzano MD Service: Nephrology Author Type: Physician Filed: 04/10/12 1138 Date of Service: 04/10/12 1017 Status: Signed Welfare Service Aide: Sean Solorzano MD (Physician) [facility] Service: NEPHROLOGY Progress Note Carol Potter 47 y.o. [phone] male Ashly Quick MD, MD Hospital Day: LOS: 8 days SUBJECTIVE Patient seen and examined. ADMITTED WITH Renal failure, acute YAKIMA SISSETON-WAHPETON ADMITTED WITH Renal failure, acute ASSOCIATED WITH FLUID ELECTROLYTE ACID BASE ABNORMALITIES HISTORY OF PRESENT ILLNESS The patient is a 47 y.o. male with significant past medical history of DYSLIPIDEMIA, HYPERTENSION, DM II, ASTHMA, ANEMIA, GOUT, who presented by ambulance from [facility]. Was there at 04/01 at 2100 due [...] HERE HAPPILY FOR 22 YEARS, LIVES in [place] AT HOME WITH , 04/09/2012; Pt C/O [...] WITH [employer]; KIDSUNEMPLOYED BEFORE WORKED AT [employer] IN [place]/ [employer] NONE ETOH QUIT 15 YEARS AGODRUGS: USES METHAMPHETAMINES PER PATIENTF ATHER HAS COLON CANCER, HEART DISEASEMOTHER 15 YEARS AGONO FH KIDNEY PROBLEMS. History reviewed. No pertinent family history. Scheduled Medications acyclovir 5 mg/kg (Acworth) Intravenous Q24H albumin human 12.5 g Intravenous [...] 8:45AM Xr Chest 1 View 04/10/2012 CAROL TARIQ XR CHEST 1 VIEW 04/10/2012 8:19 AM [...] [facility] HD UNIT UNDER DR TIMMONS Time spend [...] 04/10/122032 Date of Service: 04/10/12819 Status: Signed Welfare Service Aide: Favio Dawkins MD (Physician) [facility] Service: Hospitalist Progress Note Hospital Day: LOS: 8 days Patient Summary: who presented by ambulance from [facility]. Was there at 04/01 at 2100 due [...] Overnight: none Scheduled Medications acyclovir 5 mg/kg (Acworth) Intravenous Q24H albumin human 12.5 g Intravenous [...] Had CT guided kidney biopsy today by [facility]is results. Active Problems: Rhabdomyolysis Type II [...] Favio Dawkins MD 04/10/20128:20 AM Maurice Willis - 04/09/2012 6:02 PM PDT Progress Notes by Sean Solorzano MD at 04/09/12 9720 Author: Sean Solorzano MD Service: Nephrology Author Type: Physician Filed: [id number] Date of Service: 04/09/121801 Status: Signed Welfare Service Aide: Sean Solorzano MD (Physician) [facility] Service: NEPHROLOGY Progress Note Carol Potter 47 y.o. [id number] male Ashly Quick MD, MD Hospital Day: LOS: 7 days SUBJECTIVE Patient seen and examined. ADMITTED WITH Renal failure, acute YAKIVA SISSETON-WAHPETON ADMITTED WITH Renal failure, acute ASSOCIATED WITH FLUID ELECTROLYTE ACID BASE ABNORMALITIES HISTORY OF PRESENT ILLNESS The patient is a 47 y.o. male with significant past medical history of DYSLIPIDEMIA, HYPERTENSION, DM II, ASTHMA, ANEMIA, GOUT, who presented by ambulance from [facility]. Was there at 04/01 at 2100 due [...] HERE HAPPILY FOR 22 YEARS, LIVES in [place] AT HOME WITH , Pt C/O SOB [...] WITH [employer]; KIDSUNEMPLOYED BEFORE WORKED AT [employer] IN [place]/ [employer] NONE ETOH QUIT 15 YEARS AGODRUGS: USES METHAMPHETAMINES PER PATIENTF ATHER HAS COLON CANCER, HEART DISEASEMOTHER 15 YEARS AGONO FH KIDNEY PROBLEMS. History reviewed. No pertinent family history. Scheduled Medications acyclovir 5 mg/kg (Acworth) Intravenous Q24H amlodipine 10 mg Oral Daily [...] [facility] UNIT UNDER DR TIMMONS Time spend [...] 04/09/12835 Date of Service: 04/09/12835 Status: Signed Welfare Service Aide: Khadra Venegas RD, CDE (Hoof Trimmer) Elevated blood sugars yesterday after last dose of steroids. Recommend: Consider increasi ng to high dose correctional scale insulin. Khadra Venegas RD, MPH, CDE, Hoof Trimmer 8:36 AM Favio Blackburn MD - 04/09/2012 8:10 AM PDTFormatting of this note might be different f rom the original. Progress Notes by Favio Dawkins MD at 04/09/12809 Author: Favio Dawkins MD Service: (none) Author Type: Physician Filed: 04/09/121814 Date of Service: 04/09/12809 Status: Signed Welfare Service Aide: Favio Dawkins MD (Physician) [facility] Service: Hospitalist Progress Note Hospital Day: LOS: 7 days Patient Summary: [facility] Was [facility] at 04/01 at 2100 due [...] Overnight: none Scheduled Medications acyclovir 5 mg/kg (Acworth) Intravenous Q24H amlodipine 10 mg Oral Daily [...] changes versus mild edema. Electronically signed by rBaden Paige MD on 1 1:[address] [...] Favio Dawkins MD 04/09/20128:10 AM oster, Cat brittney, TELEMARKETER - 04/08/2012 3:44 PM PDTFormatting of this note might be different from the origi nal. Progress Notes by VANDANA Gonzalez at 04/08/12 1544 Author: VANDANA Gonzalez Service: (none) Author Type: Railroad Crane Operator Filed: 04/08/12 1543 Date of Service: 04/08/12 154 Status: Signed Welfare Service Aide: VANDANA Gonzalez (Railroad Crane Operator) At patient's consent and request CM confirmed to [facility] at [facility] that patient continued to be hospitalized [...] Dietitian Filed: 04/08/12 1527 Date of Service: 04/08/121525 Status: Signed Welfare Service Aide: Khadra Venegas RD, CDE (Hoof Trimmer) Pt with elevated blood sugars d/t high dose steroids. Steroids stopped today. Anticipate blood sugars to normalize as HbA1c is within a normal range. Will continue to follow for bl ood sugars. Khadra Venegas RD, MPH, CDE, Hoof Trimmer 04/08/2012 3:27 PM Yusuf Willisini T - 04/08/2012 2:33 PM PDTFormatting of this note might be different from the origi nal. Progress Notes by Sean Solorzano MD at 04/08/12 1433 Author: Sean Solorzano MD Service: Nephrology Author Type: Physician Filed: 04/08/12 1702 Date of Service: 04/08/121432 Status: Signed Welfare Service Aide: Sean Solorzano MD (Physician) [facility] Service: NEPHROLOGY Progress Note Carol Potter 47 y.o. [id number] male Ashly Quick MD, MD Hospital Day: LOS: 6 days SUBJECTIVE Patient seen and examined. ADMITTED WITH Renal failure, acute YAKIMA SISSETON-WAHPETON ADMITTED WITH Renal failure, acute ASSOCIATED WITH FLUID ELECTROLYTE ACID BASE ABNORMALITIES HISTORY OF PRESENT ILLNESS The patient is a 47 y.o. male with significant past medical history of DYSLIPIDEMIA, HYPERTENSION, DM II, ASTHMA, ANEMIA, GOUT, who presented by ambulance from [facility]. Was there at 04/01 at 2100 due [...] HERE HAPPILY FOR 22 YEARS, LIVES in [place] AT HOME WITH , Past Medical History [...] WITH [employer]; KIDSUNEMPLOYED BEFORE WORKED AT [employer] IN [place]/ [employer] NONE ETOH QUIT 15 YEARS AGODRUGS: USES METHAMPHETAMINES PER PATIENTF ATHER HAS COLON CANCER, HEART DISEASEMOTHER 15 YEARS AGONO FH KIDNEY PROBLEMS. History reviewed. No pertinent family history. Scheduled Medications acyclovir 5 mg/kg (Acworth) Intravenous Q24H amlodipine 10 mg Oral Daily [...] completed shifts: In: 3486 [P.O.:1600; I.V.:1886] Out: 1851 [Urine:1850; Stool:1] Weight change: -2.2 kg (-4 [...] Service: (none) Author Type: Physician Filed: 04/08/12 6641 Date of Service: 04/08/12 1331 Status: Signed Welfare Service Aide: Kisha Tello MD (Physician) [facility] Service: Infectious Disease Progress Note Hospital [...] bleeding. . Scheduled Medications acyclovir 5 mg/kg (Acworth) Intravenous Q24H amlodipine 10 mg Oral Daily [...] Status: Full Code Kisha Tello MD 04/08/2012 Favio Olea MD - 04/08/2012 8:47 AM PDT Progress Notes by Favio Dawkins MD at 04/08/12 9476 Author: Favio Dawkins MD Service: Hospitalist Author Type: Physician Filed: 04/08/12 1450 Date of Service: 04/08/12846 Status: Signed Welfare Service Aide: Favio Dawkins MD (Physician) [facility] Service: Hospitalist Progress Note Hospital Day: LOS: 6 days Patient Summary: who presented by ambulance from [facility]. Was there at 04/01 at 2100 due [...] Overnight: none Scheduled Medications acyclovir 5 mg/kg (Acworth) Intravenous Q24H amlodipine 10 mg Oral Daily [...] Favio Dawkins MD 04/08/20128:47 AM Maurice Willis T - 04/07/2012 2:52 PM PDT Progress Notes by Sean Solorzano MD at 04/07/12 2849 Author: Sean Solorzano MD Service: Nephrology Author Type: Physician Filed: 04/07/12 4042 Date of Service: 04/07/121451 Status: Signed Welfare Service Aide: Sean Solorzano MD (Physician) [facility] Service: NEPHROLOGY Progress Note Carol Potter 47 y.o. [id number] male Ashly Quick MD, MD Hospital Day: LOS: 5 days SUBJECTIVE Patient seen and examined. YAKIVA SISSETON-WAHPETON ADMITTED WITH Renal failure, acute ASSOCIATED WITH FLUID ELECTROLYTE ACID BASE ABNORMALITIES HISTORY OF PRESENT ILLNESS The patient is a 47 y.o. male with significant past medical history of DYSLIPIDEMIA, HYPERTENSION, DM II, ASTHMA, ANEMIA, GOUT, who presented by ambulance from [facility]. Was there at 04/01 at 2100 due [...] HERE HAPPILY FOR 22 YEARS, LIVES in [place] AT HOME WITH , Past Medical History [...] WITH [employer]; KIDSUNEMPLOYED BEFORE WORKED AT [employer] IN [place]/ [employer] NONE ETOH QUIT 15 YEARS AGODRUGS: USES METHAMPHETAMINES PER PATIENTF ATHER HAS COLON CANCER, HEART DISEASEMOTHER 15 YEARS AGONO FH KIDNEY PROBLEMS. History reviewed. No pertinent family history. Scheduled Medications acyclovir 5 mg/kg (Acworth) Intravenous Q24H amlodipine 10 mg Oral Daily [...] this note might be different from the malik garza Progress Notes by Janene Wheeler DO at 04/07/12 1141 Author: Janene Wheeler DO Service: Hospitalist Author Type: Physician Filed: 04/07/12 1142 Date of Service: 04/07/12 1141 Status: Signed Welfare Service Aide: Janene Wheeler DO (Physician) [facility] Service: Hospitalist Progress Note Hospital Day: LOS: 5 days Addendum Urine culture positive for S. Aureus, susceptibilities pending. ID following. ercl DO Janene - 03/24 11:22 AM PDT Progress Notes by Janene Wheeler DO at 04/07/12 1122 Author: Janene Wheeler DO Service: Hospitalist Author Type: Physician Filed: 04/07/12 1140 Date of Service: 04/07/121121 Status: Signed Welfare Service Aide: Janene Wheeler DO (Physician) [facility] Service: Hospitalist Progress Note Hospital Day: LOS: 5 days Patient Summary: who presented by ambulance from [facility]. Was there at 04/01 at 2100 due [...] Overnight: none Scheduled Medications acyclovir 5 mg/kg (Acworth) Intravenous Q24H amlodipine 10 mg Oral Daily [...] biopsy. Possible eczema herpeticum, appreciated Dr Omer arevalo t, Acyclovir IV Ergocalciferol Continue present treatment with calcium and vitamin D replacement. See above. AM labs Code Status: Full Code JANENE WHEELER DO 04/07/201211:27 AM uresh, Kisha Rousseau MD - 04/07/2012 10:24 AM PDT Progress Notes by Kisha Tello MD at 04/07/12 1024 Author: Kisha Tello MD Service: (none) Author Type: Physician Filed: 04/07/12 1420 Date of Service: 04/07/12 1024 Status: Signed Welfare Service Aide: Kisha Tello MD (Physician) [facility] Service: Infectious Disease Progress Note Hospital [...] chills . Scheduled Medications acyclovir 5 mg/kg (Acworth) Intravenous Q24H amlodipine 10 mg Oral Daily [...] custom IV infusion builder 70 mL/hr at 04/06/126 PRN Medications acetaminophen, acetaminophen, albuterol, dextrose, dextrose, [...] 04/06/122011 Date of Service: 04/06/122010 Status: Signed Welfare Service Aide: Olivia Alvarenga RN (Registered Nurse) SBAR report given to Adam Beverly. All questions stated to be asked and answered. Transfer o f care complete. Edith Wilson MD - 04/06/2012 5:08 PM PDTFormatting of this note might be different from the o riginal. Progress Notes by Edith Díaz MD at 04/06/121707 Author: Edith Díaz MD Service: (none) Author Type: Physician Filed: 04/07/12 1315 Date of Service: 04/06/121707 Status: Signed Welfare Service Aide: Edith Díaz MD (Physician) [facility] Service: Hospitalist Progress Note Hospital Day: LOS: 4 days Post-Op Day: * No surgery found * SUBJECTIVE Patient Summary: who presented by ambulance from [facility]. Was there at 04/01 at 2 100 [...] Overnight: No further ventricular tachycardia on the ekg monitor tech. Hemodynamically stable. No further epistaxis. [...] lesions noted. Scheduled Medications acyclovir 5 mg/kg (Acworth) Intravenous Q24H amlodipine 10 mg Oral Daily [...] Status: Full Code EDITH DÍAZ MD 04/06/2012 Kisha Adamson M D - 04/06/2012 12:27 PM PDT Progress Notes by Kisha Tello MD at 04/06/127 Author: Kisha Tello MD Service: (none) Author Type: Physician Filed: 04/06/12 1418 Date of Service: 04/06/121226 Status: Signed Welfare Service Aide: Kisha Tello MD (Physician) [facility] Service: Infectious Disease Progress Note Hospital [...] Status: Full Code Kisha Tello MD 04/06/2012 Hi Farrar - 04/06/2012 10:59 AM PDTFormatting of this note might be different from the origi nal. Progress Notes by Juan Timmons MD at 04/06/12 1059 Author: Juan Timmons MD Service: Nephrology Author Type: Physician Filed: 04/10/12 1122 Date of Service: 04/06/12 1059 Status: Signed Welfare Service Aide: Juan Timmons MD (Physician) [facility] Service: NEPHROLOGY PROGRESS Note Carol Potter 47 y.o. [id number] [phone] male Ashly Quick MD, MD Hospital Day: LOS: 4 days Date of Admission: 04/06/2012 HISTORY OF PRESENT ILLNESS The patient is a 47 y.o. male with significant past medical history of Past Medical History Diagnosis Date Hyperlipidemia Hypertension Diabetes mellitus type II Asthma Thyroid disease Anemia who presented by ambulance from [facility]. Was there at 04/01 at 2100 due [...] mouth 2 (two) times daily with m eafidelia. sitagliptan (JANUVIA) 100 MG tablet Take 100 [...] WITH [employer]; KIDSUNEMPLOYED BEFORE WORKED AT [employer] IN [place] NONE ETOH QUIT 15 YEARS AGODRUGS: USES [...] WITH [employer]; KIDSUNEMPLOYED BEFORE WORKED AT [employer] IN [place] NONE ETOH QUIT 15 YEARS AGODRUGS: USES [...] DETAIL, VERBALIZES UNDERSTANDING JUAN TIMMONS MD 04/06/2012 rifJuan - 04/05/2012 11:20 AM PDT Progress Notes by Juan Timmons MD at 04/05/12 1120 Author: Juan Timmons MD Service: Nephrology Author Type: Physician Filed: 04/05/12 0001 Date of Service: 04/05/120 Status: Signed Welfare Service Aide: Juan Timmons MD (Physician) [facility] Service: NEPHROLOGY PROGRESS Note Carol Potter 47 y.o. [id number] [phone] male Ashly Quick MD, MD Hospital Day: LOS: 3 days Date of Admission: 04/05/2012 HISTORY OF PRESENT ILLNESS The patient is a 47 y.o. male with significant past medical history of Past Medical History Diagnosis Date Hyperlipidemia Hypertension Diabetes mellitus type II Asthma Thyroid disease Anemia who presented by ambulance from [facility]. Was there at 04/01 at 2100 due [...] WITH [employer]; KIDSUNEMPLOYED BEFORE WORKED AT [employer] IN [place] NONE ETOH QUIT 15 YEARS AGODRUGS: USES [...] WITH [employer]; KIDSUNEMPLOYED BEFORE WORKED AT [employer] IN [place] NONE ETOH QUIT 15 YEARS AGODRUGS: USES [...] DISCONTD: calcium acetate 667 mg Oral TID Continuous Infusions dextrose custom IV infusion builder [...] ETAIL, VERBALIZES UNDERSTANDING JUAN TIMMONS MD 04/05/2012 revor Escobar - 04/05 9:36 AM PDT Progress Notes by Trevor Escobar DO at 04/05/12 0936 Author: Trevor Escobar DO Service: (none) Author Type: Physician Filed: 04/05/12 1045 Date of Service: 04/05/1236 Status: Signed Welfare Service Aide: Trevor Escobar DO (Physician) [facility] Service: Infectious Disease Progress Note Hospital [...] has not received any antibiotics. ID con sult was requested of her concern about his [...] 04/05/12825 Date of Service: 04/05/12819 Status: Signed Welfare Service Aide: Janene Wheeler DO (Physician) [facility] Service: Hospitalist Progress Note Addendum Patient had a run of VTach 10 beats, has chest pain Will give IV Magnesium and IV calcium gluconate, and check cardiac enzymes. Code Status: Full Code JANENE WHEELER DO 04/05/20128:20 AM anene Wheeler DO - 03/24 7:11 AM PDT Progress Notes by Janene Wheeler DO at 04/05/12710 Author: Janene Wheeler DO Service: Hospitalist Author Type: Physician Filed: 04/05/12 0737 Date of Service: 04/05/12710 Status: Signed Welfare Service Aide: Janene Wheeler DO (Physician) [facility] Service: Hospitalist Progress Note Hospital Day: LOS: 3 days Patient Summary: [facility] Was there at 04/01 at 2100 due [...] Normal behavior DATA Lab 04/05/12 0510 04/04/12 0604/04/12 0011 04/03/12 0505 WBC 8.7 8.6 -- 8.4 HGB 8.6* 8.1* 8.0* -- HCT 25.3* 24.0* 23.8* -- PLT 231 215 -- 199 NEUTOPHILPCT 71.3 75.6* -- 67.7 MONOPCT 10.1 8.3 -- 8.7 Lab 04/05/1250904/04/1260404/03/12 0505 04/02/12 1126 NA 133* 133* 134* [...] components found with this basename: LABALBU:3 Lab 04/05/1250904/04/1260404/03/12 0505 MG 1.6* 1.8 2.1 No results found for this basename: AMYLASE:3 in the last 168 hours No results found for this basename: PHART:3,PO2ART:3,WRT1NOM:3,I2YTJXFJ:3,BEART:[address] 168 hours Lab [...] Code Status: Full Code JANENE WHEELER DO 04/05/20127:34 AM rifJuan - 6:04 PM PDT Progress Notes by Juan Timmons MD at 04/04/121803 Author: Juan Timmons MD Service: Nephrology Author Type: Physician Filed: 04/04/121811 Date of Service: 04/04/121803 Status: Signed Welfare Service Aide: Juan Timmons MD (Physician) [facility] Service: NEPHROLOGY PROGRESS Note Carol Potter 47 y.o. [id number] [phone] male Ashly Quick MD, MD Hospital Day: LOS: 2 days Date of Admission: 04/04/2012 HISTORY OF PRESENT ILLNESS The patient is a 47 y.o. male with significant past medical history of Past Medical History Diagnosis Date Hyperlipidemia Hypertension Diabetes mellitus type II Asthma Thyroid disease Anemia who presented by ambulance from [facility]. Was there at 04/01 at 2100 due [...] by mouth 2 (two) times daily with ivone kilpatrick. sitagliptan (JANUVIA) 100 MG tablet Take 100 [...] WITH [employer]; KIDSUNEMPLOYED BEFORE WORKED AT [employer] IN [place] NONE ETOH QUIT 15 YEARS AGODRUGS: USES [...] WITH [employer]; KIDSUNEMPLOYED BEFORE WORKED AT [employer] IN [place] NONE ETOH QUIT 15 YEARS AGODRUGS: USES METHAMPHETAMINES PER PATIENTF ATHER HAS COLON CANCER, HEART DISEASEMOTHER 15 YEARS AGONO KIDNEY PROBLEMS. Scheduled Medications amlodipine 10 mg [...] D ETAIL, VERBALIZES UNDERSTANDING JUAN TIMMONS MD 04/04/2012 athy Brown MSW - 04/04/2012 4:53 PM PDT Progress Notes by VANDANA Gonzalez at 04/04/121652 Author: VANDANA Gonzalez Service: (none) Author Type: Railroad Crane Operator Filed: 04/04/121653 Date of Service: 04/04/121652 Status: Signed Welfare Service Aide: VANDANA Gonzalez (Railroad Crane Operator) provided patient's family members two meal vouchers, an adult and a teenager. Pt has In [facility], with family to transport upon discharge. Janene Ryan DO - 04/04/2012 2:59 PM PDT Progress Notes by Janene Wheeler DO at 04/04/12 5631 Author: Janene Wheeler DO Service: Hospitalist Author Type: Physician Filed: 04/04/12 2874 Date of Service: 04/04/12 974 Status: Signed Welfare Service Aide: Janene Wheeler DO (Physician) [facility] Service: Hospitalist Progress Note Hospital Day: LOS: 2 days Patient Summary: [facility] Was there at 04/01 at 2100 due [...] Psychiatric: Normal mood/affect, Normal behavior DATA Lab 04/04/12 0605 04/04/12 0011 04/03/12 1750 04/03/12 0505 04/02/12 1126 WBC 8.6 -- -- 8.4 8.8 HGB 8.1* 8.0* 7.7* -- -- HCT 24.0* 23.8* 22.8* -- -- PLT 215 -- -- 199 210 NEUTOPHILPCT 75.6* -- -- 67.7 79.1* MONOPCT 8.3 -- -- 8.7 6.3 Lab 04/04/12 0605 04/03/12 0505 04/02/12 1126 04/02/12 0040 NA 133* 134* 137 -- K [...] components found with this basename: LABALBU:3 Lab 04/04/12 0604/03/12 0505 04/02/12 1126 MG 1.8 2.1 2.3 No results found for this basename: AMYLASE:3 in the last 168 hours No results found for this basename: PHART:3,PO2ART:3,OZU3JMO:3,Z9AJPAGP:3,BEART:[address] 168 hours Lab [...] 04/04/12946 Date of Service: 04/04/12940 Status: Signed Welfare Service Aide: Trevor Escobar DO (Physician) [facility] Service: Infectious Disease Progress Note Hospital [...] discontinued. He has not received any antibiotics. KAYLEE pierce was requested of her concern about [...] Status: Full Code TREVOR ESCOBAR DO 04/04/2012 oKathy powell MSW - 04/2012 1:56 PM PDT Progress Notes by VANDANA Gonzalez at 04/03/12 1356 Author: VANDANA Gonzalez Service: (none) Author Type: Railroad Crane Operator Filed: 04/03/12 4899 Date of Service: 04/03/12 1356 Status: Signed Welfare Service Aide: VANDANA Gonzalez (Railroad Crane Operator) faxed proof of admission with patient's signed consent to release medical information in hard chart to [facility] and [facility]. Sister Margarita had requested so she could apply for gas voucher to visit her brother. rif, Juan Oliveros - 04/03/2012 11:49 AM PDT Progress Notes by Juan Timmons MD at 04/03/12 1149 Author: Juan Timmons MD Service: Nephrology Author Type: Physician Filed: 04/03/12 7856 Date of Service: 04/03/121148 Status: Signed Welfare Service Aide: Juan Timmons MD (Physician) [facility] Service: NEPHROLOGY PROGRESS Note Carol Potter 47 y.o. [id number] [phone] male Ashly Quick MD, MD Hospital Day: LOS: 1 day Date of Admission: 04/03/2012 HISTORY OF PRESENT ILLNESS The patient is a 47 y.o. male with significant past medical history of Past Medical History Diagnosis Date Hyperlipidemia Hypertension Diabetes mellitus type II Asthma Thyroid disease Anemia who presented by ambulance from [facility]. Was there at 04/01 at 2100 due [...] WITH [employer]; KIDSUNEMPLOYED BEFORE WORKED AT [employer] IN [place] NONE ETOH QUIT 15 YEARS AGODRUGS: USES [...] WITH [employer]; KIDSUNEMPLOYED BEFORE WORKED AT [employer] IN [place] NONE ETOH QUIT 15 YEARS AGODRUGS: USES [...] ETAIL, VERBALIZES UNDERSTANDING JUAN TIMMONS MD 04/03/2012 edina, Adeola Willoughby MD - 04/03/2012 8:32 AM PDT Progress Notes by Adeola Claros MD at 04/03/12831 Author: Adeola Claros MD Service: Hospitalist Author Type: Physician Filed: 04/03/12 1413 Date of Service: 04/03/12831 Status: Signed Welfare Service Aide: Adeola Claros MD (Physician) [facility] Service: Hospitalist Progress Note Hospital Day: LOS: 1 day SUBJECTIVE Patient Summary: 47 yo male who presented by ambulance from [facility]. Was there at 04/01 at 2100 due [...] Procedure Component Value Units Date/Time Urine Culture [[id number]] Collected:04/02/12 0229 Specimen Information:Urine Updated:04/03/12 1325 Specimen Description CATHETERIZED URINE Specimen Description Result: Testing performed at [facility];[address] [place] [address];[place] [address] CULTURE NO GROWTH 1 DAY CULTURE Result: Testing performed at [facility], [address] [facility], [place] [address] REPORT STATUS PENDING Results Procedure Component Value Units Date/Time Urine Culture [[id number]] Collected:04/02/12 0229 Specimen Information:Urine Updated:04/03/12 1325 Specimen Description CATHETERIZED URINE Specimen Description Result: Testing performed at [facility];[address] [place] [address] CULTURE NO GROWTH 1 DAY CULTURE Result: Testing performed at [facility], [address] [place] [address] REPORT STATUS PENDING Urine eosinophils [[id number]] Collected:04/02/12 1530 URINE EOSINOPHILS NO EOSINOPHILS SEEN % Updated:04/03/12 1315 Type and Cross [[id number]] Collected:04/02/12 0125 Specimen Information:Blood Updated:04/03/12 1309 ARM BAND NUMBER [id number] ARM BAND NUMBER Result: Testing performed at [facility];[address] [place] [address] ABO/RH(D) O POSITIVE ABO/RH(D) Result: Testing performed at [facility];[address] [place] [address];[place] [address] ANTIBODY SCREEN NEGATIVE ANTIBODY SCREEN Result: Testing performed at [facility];[address] [place] [address];[place] [address] UNIT NUMBER [id number] BLOOD COMPONENT TYPE LEUKODEPLETED PC UNIT DIVISION 00 STATUS OF UNIT ISSUED,FINAL TRANSFUSION STATUS OK TO TRANSFUSE CROSSMATCH RESULT COMPATIBLE UNIT NUMBER [id number] BLOOD COMPONENT TYPE LEUKODEPLETED PC UNIT DIVISION 00 STATUS OF UNIT ISSUED,FINAL TRANSFUSION STATUS OK TO TRANSFUSE CROSSMATCH RESULT COMPATIBLE UNIT NUMBER [id number] BLOOD COMPONENT TYPE LEUKODEPLETED PC UNIT DIVISION 00 STATUS OF UNIT ALLOCATED TRANSFUSION STATUS OK TO TRANSFUSE CROSSMATCH RESULT COMPATIBLE UNIT NUMBER [id number] BLOOD COMPONENT TYPE LEUKODEPLETED PC UNIT DIVISION 00 STATUS OF UNIT ALLOCATED TRANSFUSION STATUS OK TO TRANSFUSE CROSSMATCH RESULT COMPATIBLE Hemoglobin and hematocrit [[id number]] Collected:04/03/12 1215 Updated:04/03/12 1223 Protein electrophoresis [[id number]] (Abnormal) Collected:04/02/12 1126 Specimen Information:Blood Updated:04/03/12 1135 [...] SPEP Interpretation SEE BELOW Treponema pallidum reflex [[id number]] Collected:04/02/121125 TREP PALLIDUM BY EIA NEGATIVE Updated:04/03/12950 Hemoglobin and hematocrit [[id number]] (Abnormal) Collected:04/03/12921 HGB 7.9 (L) g/dL Updated:04/03/12934 HCT 23.1 (L) % PTH, intact and calcium [[id number]] (Abnormal) Collected:04/02/121125 Specimen Information:Blood Updated:04/03/12926 CALCIUM 6.1 (L) mg/dL PTH,INTACT 255 (H) pg/mL Free T4 [[id number]] (Abnormal) Collected:04/03/12504 FREE T4 0.6 (L) ng/dL Updated:04/03/12902 CPK [[id number]] (Abnormal) Collected:04/03/12504 CPK 1219 (H) U/L Updated:04/03/12902 Glycohemoglobin A1c [[id number]] (Abnormal) Collected:04/03/12504 Specimen Information:Blood Updated:04/03/12711 HEMOGLOBIN A1C 5.4 % ESTIMATED AVG GLUCOSE 108 (H) mg/dL Comprehensive metabolic panel [[id number]] (Abnormal) Collected:04/03/12504 Specimen Information:Blood Updated:04/03/12638 SODIUM 134 [...] 25 U/L EGFR 4 (L) mL/min/1.73m2 Magnesium [[id number]] Collected:04/03/12504 Specimen Information:Blood Updated:04/03/12638 MAGNESIUM 2.1 mg/dL Phosphorus [[id number]] (Abnormal) Collected:04/03/12504 Specimen Information:Blood Updated:04/03/12638 PHOSPHORUS 9.8 (HH) mg/dL TSH [[id number]] (Abnormal) Collected:04/03/12504 Specimen Information:Blood Updated:04/03/12638 TSH 16.60 (H) uIU/mL aPTT [[id number]] (Abnormal) Collected:04/03/12504 Specimen Information:Blood Updated:04/03/12627 APTT 36 (H) seconds Protime-INR [[id number]] Collected:04/03/12504 Specimen Information:Blood Updated:04/03/12627 INR 1.3 CBC w/auto diff (reflex to manual) [[id number]] (Abnormal) Collected:04/03/12504 Specimen Information:Blood Updated:04/03/12617 WBC 8.4 K/uL RBC [...] 1.4 (H) K/uL BASOPHILS ABS 0.0 K/uL Bastian/Lambda LC RATI [[id number]] Collected:04/02/12 1126 Bastian 875 mg/dL Updated:04/03/12 0449 Lambda 463 mg/dL RASHID/LAMBDA RATIO 1.89 Sodium, urine, random [[id number]] (Abnormal) Collected:04/02/12 1530 Specimen Information:Urine Updated:04/02/12 1712 UR SODIUM,RANDOM 46 (L) mmol/L HGB and HCT [[id number]] (Abnormal) Collected:04/02/12 1643 HGB 8.5 (L) g/dL Updated:04/02/12 1705 HCT 25.0 (L) % Hepatitis panel, chronic [[id number]] (Abnormal) Collected:04/02/12 112 Hep A Total Ab REACTIVE (A) Updated:04/02/12 1644 HEP B SURFACE AG NON REACTIVE HEP B CORE AB,TOTAL NON REACTIVE HEP B SURFACE ANTIBODY <0.50 IV HEPATITIS C NON REACTIVE HEPATITIS INTERP Result: Current or past HAV infection. No serologic evidence of HCV infection or HBV infection or vaccination. Vitamin D,25 hydroxy [[id number]] (Abnormal) Collected:04/02/121125 Specimen Information:Blood Updated:04/02/12 1603 VITAMIN D,25 HYDROXY <12 (L) ng/mL RA titer [[id number]] Collected:04/02/121125 Specimen Information:Blood Updated:04/02/12 1555 RA TITER <10 IU/mL CBC w/auto diff (reflex to manual) [[id number]] (Abnormal) Collected:04/02/121125 Specimen Information:Blood Updated:04/02/12 1236 WBC [...] K/uL BASOPHILS ABS 0.0 K/uL HIV rapid [[id number]] Collected:04/02/12 112 HIV RAPID NON REACTIVE Updated:04/02/12 1227 Magnesium [[id number]] Collected:04/02/121125 Specimen Information:Blood Updated:04/02/12 1226 MAGNESIUM 2.3 mg/dL Phosphorus [[id number]] (Abnormal) Collected:04/02/121125 Specimen Information:Blood Updated:04/02/121225 PHOSPHORUS 11.8 (HH) mg/dL Uric acid [[id number]] Collected:04/02/121125 Specimen Information:Blood Updated:04/02/121225 URIC ACID 8.2 mg/dL CPK [[id number]] (Abnormal) Collected:04/02/121125 Specimen Information:Blood Updated:04/02/121225 CPK 1373 (H) U/L Iron panel [[id number]] (Abnormal) Collected:04/02/121125 Specimen Information:Blood Updated:04/02/121225 IRON 55 ug/dL TIBC 144.00 (L) ug/dL IRON % SAT 38 % Ferritin [[id number]] Collected:04/02/121125 Specimen Information:Blood Updated:04/02/121225 FERRITIN 139 ng/mL C-reactive protein [[id number]] (Abnormal) Collected:04/02/121125 CRP 15.0 (H) mg/dL Updated:04/02/121225 Comprehensive metabolic panel [[id number]] (Abnormal) Collected:04/02/121125 Specimen Information:Blood Updated:04/02/121225 SODIUM 137 [...] 4 (L) mL/min/1.73m2 C3 and C4 complement [[id number]] Collected:04/02/121125 COMPLEMENT C3 94 mg/dL Updated:04/02/121225 COMPLEMENT C4 16.3 mg/dL Sedimentation rate, automated [[id number]] (Abnormal) Collected:04/02/121125 Specimen Information:Blood Updated:04/02/121223 ESR 52 (H) mm/Hr ANCA panel(reflexive) [[id number]] Collected:04/02/121125 Specimen Information:Blood Updated:04/02/12 1134 Glomerular basement membrane Ab [[id number]] Collected:04/02/121125 Specimen Information:Blood Updated:04/02/12 1134 POCT glucose [[id number]] Collected:04/02/12 0125 GLUCOSE,POC SCREEN 67 mg/dL Updated:04/02/12433 POCT glucose [[id number]] (Abnormal) Collected:04/02/12 0214 GLUCOSE,POC SCREEN 110 (H) mg/dL Updated:04/02/12433 POCT glucose [[id number]] Collected:04/02/12 0256 GLUCOSE,POC SCREEN 95 mg/dL Updated:04/02/12433 POCT glucose [[id number]] (Abnormal) Collected:04/02/12 0402 GLUCOSE,POC SCREEN 102 (H) mg/dL Updated:04/02/12433 POCT glucose [[id number]] (Abnormal) Collected:04/02/12 0031 GLUCOSE,POC SCREEN 29 (LL) mg/dL Updated:04/02/12433 Salicylate (Aspirin) Level [[id number]] (Abnormal) Collected:04/02/12231 Specimen Information:Blood Updated:04/02/12 031 SALICYLATE 2.6 (L) mg/dL Urine Drug Screen [[id number]] (Abnormal) Collected:04/02/12228 Specimen Information:Urine Updated:04/02/12250 AMPHETAMINE POSITIVE (A) OPIATES NEGATIVE BARBITUATES NEGATIVE PCP NEGATIVE BENZODIAZEPINE NEGATIVE THC NEGATIVE COCAINE NEGATIVE TRICYCLIC ANTIDEPRESS NEGATIVE ACETAMINOPHEN/PARACET POSITIVE (A) METHAMPHETAMINES POSITIVE (A) METHADONE NEGATIVE Urine Microscopic [[id number]] (Abnormal) Collected:04/02/12228 Specimen Information:Urine Updated:04/02/12250 WBC 6-10 /hpf RBC 16-25 /hpf EPITHELIAL 6-10 /lpf BACTERIA TRACE (A) Mucus, UA 1+ Crystals 3+ /hpf Carbamazepine [[id number]] (Abnormal) Collected:04/02/12 0040 DATE OF LAST DOSE UNKNOWN Updated:04/02/12229 TIME OF LAST DOSE UNKNOWN CARBAMAZEPINE LEVEL <0.5 (L) ug/mL POC arterial CG4+ [[id number]] (Abnormal) Collected:04/02/12 020 pH, Art 7.148 (LL) Updated:04/02/12211 POC PCO2 23 (L) mmHg POC p02 171 (H) mmHg POC LACTATE 0.6 mmol/L POC HCO3 8 (L) mmol/L POC TCO2 9 (L) mEq/L POC BASE DEFICIT 21 (H) mmol/L POC S02 99 (H) % POC FIO2 32 % Cardiac Panel [[id number]] (Abnormal) Collected:04/02/12 0040 WBC 9.7 K/uL Updated:04/02/12125 RBC 2.14 (L) [...] 92.1 (H) ng/mL CK-MB Index 5.6 CAROL POTTER 1965 47 years Male XR [...] GI prophylaxis Code Status: Full Code Adeola Claros MD 04/03/[address] - 04/02/2012 10:23 AM PDTFormatting of this note might be different from the origin al. Progress Notes by Erin Angel RD at 04/02/12 1023 Author: Erin Angel RD Service: (none) Author Type: Registered Dietitian Filed: 04/02/12 1026 Date of Service: 04/02/12 1023 Status: Signed Welfare Service Aide: Erin Angel RD (Hoof Trimmer) Pt on droplet precautions. Attempted to visit [...] later today. Erin Angel RD, CD, Inpatient Hoof Trimmer 04/02/2012 10:26 AM onversion Transaction , Provider Unknown - 04/02/2012 8:45 AM PDT Progress Notes by Gianna Ann RPH at 04/02/12 0845 Author: Gianna Ann RPH Service: (none) Author Type: Pharmacist Filed: 04/02/1245 Date of Service: 04/02/1245 Status: Signed Welfare Service Aide: Gianna Ann RPH (Pharmacist) Renal Dosing Monitoring: Carol Potter 47 y.o. male Pharmacy dosing for renal function per Dr. Trujillo Medication(s): Pepcid Plan per protocol: Medication / Dose: Est CrCl ~6.3 ml/min Will change Pepcid to daily dosing for poor renal function Pharmacy will continue monitoring patient for appropriate dosing per renal function. 04/02/2012 8:42 AM Pharmacist: GIANNA ANN Adeola Eugene MD - 04/02/2012 8:13 AM PDT Progress Notes by Adeola Claros MD at 04/02/12812 Author: Adeola Claros MD Service: Hospitalist Author Type: Physician Filed: 04/02/12 5816 Date of Service: 04/02/12812 Status: Addendum Welfare Service Aide: Adeola Claros MD (Physician) Related Notes: Original Note by Adeola Claros MD (Physician) filed at 04/02/12 4597 47 yo male who presented by ambulance from [facility]. Was there at 04/01 at 2100 due [...] GI prophylaxis documente d in this encounter H&P Notes Neli Trujillo MD - 04/02/2012 3:48 AM PDTFormatting of this note might be different fr om the original. H&P by Neli Trujillo MD at 04/02/12347 Author: Neli Trujillo MD Service: Hospitalist Author Type: Physician Filed: 04/02/12 0447 Date of Service: 04/02/12347 Status: Addendum Welfare Service Aide: Neli Trujillo MD (Physician) Related Notes: Original Note by Neli Trujillo MD (Physician) filed at 04/02/[address] [facility] Service: Hospitalist Admission History & Physical Pt: Carol Potter AGE/SEX: 47 y.o. male ROOM: 04/02 PCP: Ashly Quick MD, MD : 1965 TODAY'S DATE: 04/02/2012 Date of Admission: 04/02/2012 Chief Complaint: Chest pain History of Present Illness: The patient is a 47 y.o. male with significant past medical history of Past Medical History Diagnosis Date Hyperlipidemia Hypertension Diabetes mellitus type II Asthma Thyroid disease Anemia who presented by ambulance from [facility]. Was there at 04/01 at 2100 due to chest pain . He was given NTG there which relieved his pain. He was found have a creatinine of 14.2 and was hyperkalemic with a K of 7.3. He was given Ca Glucona te, Insulin, D50, albuterol, kayexalate, Bicarb . No fluids given. He also has been using methamphetamine on that day which he says he onl y recently started. The pt does complain of an "itchy rash." The pt's rash has been present for the past "4-5 days. And is all over his body. He denies any current chest pain. ER physi jm has contacted Dr. Timmons who recommends bicarb drip and ER has already started RBC transf usion. He reports resolution of chest pain. He does not have any PCP care prior to this and is basically noncompliant with his medications. Denies nausea, vomiting, SOB, headacge. C/o penile pain post catheterization. Review of Systems: A 10 point review of systems was negative except as mentioned in the HPI. PSHx: Past Surgical History Procedure Date Unlisted procedure arthroscopy Prior To admission Meds: Prior to Admission medications Medication Sig Start Date End Date Taking? Authorizing Provider ALBUTEROL IN Inhale 2 puffs into the lungs daily. Yes Historical Provider aspirin 81 MG EC tablet Take 81 mg by mouth daily. Yes Historical Provider calcium carbonate (OS-BELTRAN) 600 MG TABS Take 600 mg by mouth daily. Yes Historical Provi mark carbamazepine (TEGRETOL) 200 MG tablet Take 200 mg by mouth 3 (three) times daily. Per pt m edication list pt takes 400 mg in a.m. And 200 mg in p.m. Yes Historical Provider glipiZIDE (GLUCOTROL) 10 MG tablet Take 10 mg by mouth daily. Yes Historical Provider lisinopril (PRINIVIL,ZESTRIL) 10 MG tablet Take 10 mg by mouth daily. Yes Historical Pr ovider metformin (GLUCOPHAGE) 1000 MG tablet Take 1,000 mg by mouth 2 (two) times daily with meals . Yes Historical Provider naproxen (NAPROSYN) 500 MG tablet Take 500 mg by mouth 2 (two) times daily with meals. Yes Historical Provider sitagliptan (JANUVIA) 100 MG tablet Take 100 mg by mouth daily. Yes Historical Provider Allergies: Allergies Allergen Reactions Penicillins Other (See Comments) unknown Family Hx: History reviewed. No pertinent family history. Social Hx: History Social History Marital Status: Spouse Name: N/A Number of Children: N/A Years of Education: N/A Occupational History Not on file. Social History Main Topics Smoking status: Never Smoker Smokeless tobacco: Not on file Alcohol Use: No Drug Use: Sexually Active: Other Topics Concern Not on file Social History Narrative No narrative on file History Smoking status Never Smoker Smokeless tobacco Not on file History Alcohol Use No Physical Exam: BP 150/67 | Pulse 78 | Temp 97.8 F (36.6 C) | Resp 20 | SpO2 100% General Appearance: Alert, cooperative, moderate distress due to pain in penis after cat heterization, appears stated age Head: Normocephalic, without obvious abnormality, atraumatic Eyes: PERRL, conjunctiva/corneas clear, EOM's intact. Ears: Normal external ear canals, both ears Nose: Nares normal, septum midline, mucosa normal, no drainage or sinus tenderness Throat: Lips, mucosa, and tongue normal; poor dentition Neck: Supple, symmetrical, trachea midline, thyroid: no [...] Judgement and insight Rectal: Deferred Extremities: Extremities normal, atraumatic, no cyanosis or edema Pulses: 2+ and symmetric all extremities Skin: Skin color, texture, turgor normal, scabbed lesions generalized over entire body in cluding face Lymph nodes: Cervical nodes normal Neurologic: CNII-XII intact, grossly normal strength, sensation and reflexes throughout Data: CBC: Lab Results Component Value Date WBC 9.7 04/02/2012 RBC 2.14* 04/02/2012 HGB 6.4* 04/02/2012 HCT 19.4* 04/02/2012 MCV 90.3 04/02/2012 MCH 30.0 04/02/2012 MCHC 33.2 04/02/2012 RDW 56.0* 04/02/2012 PLT 230 04/02/2012 MPV 7.1 04/02/2012 DIFFTYPE AUTOMATED 04/02/2012 CMP: Lab Results Component Value Date NA 135 04/02/2012 K 5.9* 04/02/2012 CL 105 04/02/2012 CO2 8* 04/02/2012 ANIONGAP 27* 04/02/2012 GLUF 196* 04/02/2012 BUN 114* 04/02/2012 CREATININE 15.12* 04/02/2012 BCR 8 04/02/2012 CA 6.5* 04/02/2012 PROT 6.2* 04/02/2012 ALB 2.2* 04/02/2012 GLOB 4.0 04/02/2012 BILITOT 1.3 04/02/2012 ALP 88 04/02/2012 AST 45 04/02/2012 ALT 32 04/02/2012 EGFR 4* 04/02/2012 Magnesium: No results found for this basename: MG Phosphorus: No results found for this basename: PHOS PT/INR: Lab Results Component Value Date INR 1.5 04/02/2012 Troponin: No results found for this basename: TROPONINI Last 3 Troponin: No results found for this basename: TROPONINI TSH: No results found for this basename: TSH, TSHNEO, TSHREFLEX CPK: Lab Results Component Value Date CKTOTAL 1632* 04/02/2012 CKMB: Lab Results Component Value Date CKMB 92.1* 04/02/2012 U/A: Lab Results Component Value Date COLORU YELLOW 04/02/2012 CLARITYU TURBID 04/02/2012 NITRITE NEGATIVE 04/02/2012 UROBILINOGEN 0.2 04/02/2012 PHUR 5.0 04/02/2012 BILIRUBINUR NEGATIVE 04/02/2012 EKG: I personally reviewed the EKG. Findings: 71 bpm NSR no sttw elevation, prolonged qt IMAGING: No results found. Problem List: Principal Problem: *Renal failure, acute Active Problems: Rhabdomyolysis Type II or unspecified type diabetes mellitus without mention of complication, not stated as uncontrolled Essential hypertension, benign Amphetamine and other psychostimulant dependence, continuous Hyperkalemia Anemia in chronic kidney disease Unspecified asthma Assessment and Plan: Principal Problem: *Renal failure, acute - Causing acidosis. Creatinine available 2010 1.7 Not consistently g etting medical care prior to admission. Could very well have chronic renal failure from unco ntrolled BP and DM. But also secondary to rhabdomyolysis from methamphetamine use. Question of a seizure also as he does have hx of seizures from a hx of cerebral palsy. Currently ge tting kayexelate, recheck BMP in AM draw which will be in a couple of hours. Careful hydra tion. D/c lisinopril, naproxen, calcium carbonate supplementation, metformin. Cont bicarbona te drmelissa. Dr. Timmons contacted by Dr. Kan will see patient this AM Active Problems: Rhabdomyolysis - hydration and recheck CPK Type II or unspecified type diabetes mellitus without mention of complication, not stated as uncontrolled - d/chome medications and start ISS with FS checks, DM diet, renal diet Essential hypertension, benign - d'michaela lisinopril, can give hydralazine prn Amphetamine and other psychostimulant dependence, continuous - discussed risks with patiguille t and seems to understand at this point. Reemphasize and need PCP intermission coordinator Hyperkalemia- has received Ca Gluconate, Insulin, D50, albuterol, kayexalate, bicarbonate, will check what it is in a few hours including Mg, Phos Anemia in chronic kidney disease- 2 u ongoing prbc, repeat CBC Unspecified asthma - albuterol prn DVT ppx with SCDs GI ppx Patient's old records and labs that were available, were reviewed in detail and summarized as above. Code Status: full code Primary Care Physician: Ashly Quick MD, MD NELI TRUJILLO MD 04/02/2012 3:54 AM documented in this encounter Consult Notes Trevor Escobar - 04/03/2012 3:09 PM PDT Consult* by Trevor Escobar DO at 04/03/12 3996 Author: Trevor Escobar DO Service: (none) Author Type: Physician Filed: 04/03/12 1530 Date of Service: 04/03/12 1505 Status: Signed Welfare Service Aide: Trevor Escobar DO (Physician) [facility] Service: Infectious Disease Initial Consult Note Date of Admission: 04/02/2012 Reason for Consultation: Rash, renal failure Requesting Physician: Demetria Claros Disease History Obtained From: patient, chart review CHIEF COMPLAINT: Chest pain, rash HISTORY OF PRESENT ILLNESS The patient is a 47 y.o. male who presented to an outside hospital with chest pain and was found to have acute renal failure, hyperkalemia and rash. He reported approximately 4 or 5 d ays of pruritus prior to his presentation. He admitted to recent methamphetamine use, but de gabriele having had a history of long-term methamphetamine use. The patient has not required hem odialysis so far, and has been making urine. Workup is underway for possible vasculitis. The patient reports that he started having some shortness of breath with exertion approxima tely 2 weeks ago. Over that time he also started feeling generally weak and fatigued. He did not have any fevers or chills. He has not had any night sweats or weight loss. He denies an y loss of appetite and is active and quite hungry and eating well. Despite his shortness of breath, he denies any cough or sputum production. While in the emergency department, he had a nosebleed and he cleared his throat which produced some blood. Other than that occasion, d uring his nosebleed, he has never had any hemoptysis. The patient denies any known history o f exposure to tuberculosis. The patient has severe pruritus secondary to the rash on his body. This started approximate ly one week ago. He has never had a similar rash previously. He does have a crusting scaling rash on both ankles that has been present for approximately 3 years, but has not been pruri tic or painful. REVIEW OF SYSTEMS Review of Systems Complete review of the constitutional, ENT, cardiovascular, respiratory, gastrointestinal, genitourinary, integumentary, musculoskeletal, psychiatric, neurologic, heme/lymphatic syste ms is entirely negative except as described above in the history of the present illness. Past Medical History Diagnosis Date Hyperlipidemia Hypertension Diabetes mellitus type II Asthma Thyroid disease Anemia Past Surgical History Procedure Date Unlisted procedure arthroscopy Allergies Allergen Reactions Penicillins Other (See Comments) unknown Prescriptions prior [...] by mouth 2 (two) times daily with ivone kilpatrick. sitagliptan (JANUVIA) 100 MG tablet Take 100 mg by mouth daily. Scheduled Medications carbamazepine 200 mg Oral TID [...] hydrALAZINE, insulin aspart, ondansetron, ondansetron, polyethylene glycol History reviewed. No pertinent family history. History [...] WITH [employer]; KIDSUNEMPLOYED BEFORE WORKED AT [employer] IN [place]/ [employer] COURSESMOKE NONE ETOH QUIT 15 YEARS AGODRUGS: USES METHAMPHETAMINES PER PATIENTF ATHER HAS COLON CANCER, HEART DISEASEMOTHER 15 YEARS AGONO FH KIDNEY PROBLEMS. PHYSICAL EXAM Vital Signs: BP 147/78 | Pulse 86 | Temp(Src) 98.7 F (37.1 C) (Oral) | Resp 18 | Ht 1.702 m (5' 7") | Wt 88.9 kg (195 lb 15.8 oz) | BMI 30.70 kg/m2 | SpO2 100% Temp (24hrs), Av.2 F (36.8 C), Min:97.3 F (36.3 C), Max:99 F (37.2 C) Physical Exam Constitutional: The patient is in no acute distress and appears stated age. Vital signs wer e reviewed as above Head: Normocephalic and atraumatic ENT: Mucous membranes are moist. There is no evidence of thrush. No pharyngeal exudates. Neck: Supple without thyromegaly or meningismus. Heart: Regular rate and rhythm without murmurs gallops or rubs Lungs: Clear to auscultation bilaterally without wheezes rales or rhonchi. Abdomen: Soft and nontender, bowel sounds are present, there is no organomegaly or mass Musculoskeletal: There is no gross deformity or active arthritis. Neuro: There are no gross deficits of motor or sensory function Skin: There are crusting scaling lesions on both lower extremities from just above the ankl e to the dorsum of the foot without associated erythema. There is a diffuse rash consisting of flesh-colored slightly hyperpigmented papules that it is not ulcerative or forming vesicl es. There linear excoriations adjacent to many of these from patient scratching. Extremities: There is no clubbing, cyanosis, or peripheral edema. Psychiatric: The patient attends the examiner without difficulty and affect is appropriate. DATA CBC: Lab Results Component Value Date WBC 8.4 04/03/2012 RBC 2.52* 04/03/2012 HGB 8.0* 04/03/2012 HCT 23.7* 04/03/2012 MCV 89.4 04/03/2012 MCH 30.8 04/03/2012 MCHC 34.4 04/03/2012 RDW 52.5 04/03/2012 PLT 199 04/03/2012 MPV 6.7 04/03/2012 DIFFTYPE AUTOMATED 04/03/2012 CMP: Lab Results Component Value Date NA 134* 04/03/2012 K 4.1 04/03/2012 CL 101 04/03/2012 CO2 16* 04/03/2012 ANIONGAP 22* 04/03/2012 GLUF 89 04/03/2012 BUN 106* 04/03/2012 CREATININE 13.34* 04/03/2012 BCR 8 04/03/2012 CA 5.4* 04/03/2012 CA 6.1* 04/02/2012 PROT 5.3* 04/03/2012 ALB 1.8* 04/03/2012 GLOB 3.5 04/03/2012 BILITOT 0.9 04/03/2012 ALP 69 04/03/2012 AST 32 04/03/2012 ALT 25 04/03/2012 EGFR 4* 04/03/2012 Sedimentation rate is 54. ALLIE and ANCA pending. Urinalysis is unremarkable. Rapid HIV scree n negative. Syphilis screen negative. Tox screen positive for amphetamine and methamphetamin e. Urine culture negative so far. Medical imaging: Chest x-ray was reviewed in PACS and shows no significant infiltrates or c onsolidations. Mild bibasilar reticular pattern noted on the official report. The patient johnson s also had an ultrasound of the retroperitoneal area without signs of hydronephrosis. Medical record review: I have reviewed the patient's admission history and physical as well as progress notes from the current hospital stay. Emergency department notes have also been reviewed. Much of this information is summarized above in history of present illness. PROBLEM LIST Principal Problem: *Renal failure, acute Active Problems: Rhabdomyolysis Type II or unspecified type diabetes mellitus without mention of complication, not stated as uncontrolled Essential hypertension, benign Amphetamine and other psychostimulant dependence, continuous Hyperkalemia Unspecified asthma Hyperphosphatemia Anemia Acidosis ASSESSMENT & PLAN Patient Active Hospital Problem List: Renal failure, acute (04/02/2012) Suspect secondary to vasculitis, workup is underway. Rhabdomyolysis (04/02/2012) Combined with his rash, dermatomyositis is a possibility. Consider skin and muscle biopsy if diagnosis remains unclear from blood work. Rash and nonspecific skin eruption (04/03/2012) The diffuse rash is not suggestive of bacterial infection. I suspect that this is related to his systemic disorder, most likely vasculitis. The rash on his ankles is distinct and se parate, chronic x3 years. This is most likely eczema or psoriasis. Hemoptysis The patient has not had hemoptysis. He cleared his throat and produced blood during an ep isode of epistaxis. No workup for active pulmonary tuberculosis is indicated. I anticipate that the patient will ultimately require high-dose steroids, possibly for a pr olonged period of time for his systemic illness. I am going to send a point of furuncle test to rule out latent tuberculosis. I want to be very clear that I am not suspicious of active pulmonary tuberculosis. Airborne isolation can be discontinued. Code Status: Full Code Primary Care Physician: Ashly Quick MD, MD Thank you for allowing me to participate in the care of this patient. I will continue to follow with you. TREVOR ESCOBAR, 04/03/2012 Sara Lantigua MD - 04/02/2012 6:50 PM PDT Consult* by Sraa Monge MD at 04/02/121849 Author: Sara Monge MD Service: (none) Author Type: Physician Filed: 04/02/121905 Date of Service: 04/02/121849 Status: Signed Welfare Service Aide: Sara Monge MD (Physician) [facility] Service: Gastroenterology Initial Consult Note Date of Admission: 04/02/2012 Reason for Consultation: History of black stool and severe anemia Requesting Physician: Hospitalist History Obtained From: patient CHIEF COMPLAINT: Chest pain started 1/2 hour prior to arrival HISTORY OF PRESENT ILLNESS The patient is a 47 y.o. male with significant past medical history of type 2 diabetes and hypertension who presents with chest pain which started about 1/2 hour prior to arrival to [facility]. His chest pain was resolved with NTG. He started having recurrent epistaxis one week prior to arrival in which he had significant amount of bleeding.He started having loree k stool during the last 2 days. However he has not had BM since admission. His epistaxis was also resolved. He has a history of taking Naprosyn about 4 weeks ago for about one week fo r arthritis of his leg. He denies having any significant upper or lower GI symptoms,specific ally he denies heartburn,dysphagia,odynophagia,epigastric pain,lower abdominal pain,change i n bowel,overt rectal bleeding. REVIEW OF SYSTEMS Review of Systems All other systems reviewed and are negative. Past Medical History Diagnosis Date Hyperlipidemia Hypertension Diabetes mellitus type II Asthma Thyroid disease Anemia Past Surgical History Procedure Date Unlisted procedure arthroscopy Allergies Allergen Reactions Penicillins Other (See Comments) unknown Prescriptions prior [...] mouth 2 (two) times daily with m eafidelia. sitagliptan (JANUVIA) 100 MG tablet Take 100 mg by mouth daily. Scheduled Medications carbamazepine 200 mg Oral TID dextrose 25 g Intravenous Once dextrose famotidine 20 mg Oral Daily Or famotidine 20 mg Intravenous Daily sodium bicarbonate 50 mEq Intravenous Once sodium chloride 1,000 mL Intravenous Once DISCONTD: famotidine 20 mg Intravenous BID DISCONTD: famotidine 20 mg Oral BID DISCONTD: sodium chloride 10 mL Intravenous Q8H Continuous Infusions dextrose custom IV infusion builder 125 mL/hr at 04/02/12 1513 DISCONTD: sodium chloride PRN Medications acetaminophen, acetaminophen, albuterol, dextrose, dextrose, dextrose, glucagon, glucagon, hydrALAZINE, ondansetron, ondansetron, polyethylene glycol History reviewed. No pertinent family history. History Smoking status Never Smoker Smokeless tobacco Not on file History Alcohol Use No PHYSICAL EXAM Vital Signs: BP 162/79 | Pulse 86 | Temp(Src) 97.6 F (36.4 C) (Oral) | Resp 20 | Ht 1.702 m (5' 7") | Wt 88.9 kg (195 lb 15.8 oz) | BMI 30.70 kg/m2 | SpO2 99% Temp: [96.9 F (36.1 C)-97.9 F (36.6 C)] 97.6 F (36.4 C) (04/02 1546) BP: (115-175)/(57-81) 162/79 mmHg (04/02 1546) Heart Rate: [65-88] 86 (04/02 1546) Resp: [20-22] 20 (04/02 1546) SpO2: [99 %-100 %] 99 % (04/02 1546) Height: [170.2 cm (5' 7")] 170.2 cm (5' 7") (04/02 715) Weight: [88.9 kg (195 lb 15.8 oz)] 88.9 kg (195 lb 15.8 oz) (04/02 715) BMI (Calculated): [30.8] 30.8 (04/02 715) Physical Exam Constitutional: He is oriented to person, place, and time. He appears well-developed and we ll-nourished. No distress. Looks older than stated age HENT: Head: Atraumatic. Nose: Nose normal. Eyes: Conjunctivae and EOM are normal. Pupils are equal, round, and reactive to light. Cardiovascular: Normal rate, regular rhythm, normal heart sounds and intact distal pulses. Pulmonary/Chest: Effort normal. No respiratory distress. He has rales. He exhibits no tende rness. Abdominal: Soft. Bowel sounds are normal. He exhibits no distension and no mass. There is n o rebound and no guarding. Neurological: He is alert and oriented to person, place, and time. He has normal reflexes. Skin: Skin is warm and dry. Rash noted. He is not diaphoretic. No erythema. There is pallor . Psychiatric: He has a normal mood and affect. DATA CBC: Lab Results Component Value Date WBC 8.8 04/02/2012 RBC 2.87* 04/02/2012 HGB 8.5* 04/02/2012 HCT 25.0* 04/02/2012 MCV 89.1 04/02/2012 MCH 30.0 04/02/2012 MCHC 33.7 04/02/2012 RDW 54.3* 04/02/2012 PLT 210 04/02/2012 MPV 6.8 04/02/2012 DIFFTYPE AUTOMATED 04/02/2012 CMP: Lab Results Component Value Date NA 137 04/02/2012 K 4.9 04/02/2012 CL 107 04/02/2012 CO2 11* 04/02/2012 ANIONGAP 23* 04/02/2012 GLUF 107* 04/02/2012 BUN 122* 04/02/2012 CREATININE 14.39* 04/02/2012 BCR 9 04/02/2012 CA 6.5* 04/02/2012 PROT 6.2* 04/02/2012 ALB 2.2* 04/02/2012 GLOB 4.0 04/02/2012 BILITOT 1.2 04/02/2012 ALP 82 04/02/2012 AST 38 04/02/2012 ALT 28 04/02/2012 EGFR 4* 04/02/2012 BUN/Creatinine: Lab Results Component Value Date BUN 122* 04/02/2012 CREATININE 14.39* 04/02/2012 PT/INR: Lab Results Component Value Date INR 1.5 04/02/2012 PTT: Lab Results Component Value Date APTT 40* 04/02/2012 [APTT PROBLEM LIST Principal Problem: *Renal failure, acute Active Problems: Rhabdomyolysis Type II or unspecified type diabetes mellitus without mention of complication, not stated as uncontrolled Essential hypertension, benign Amphetamine and other psychostimulant dependence, continuous Hyperkalemia Unspecified asthma Hyperphosphatemia Anemia Acidosis ASSESSMENT & PLAN 47 yrs old male with complicated past medical illness who presented with chest pain which i s now resolved. He most likely have acute on top of chronic kidney disease. In term of black stool,d/dx include blood loss from epistaxis,Naprosyn gastropathy,erosive esophagitis,angio dyplasia,GI neoplasia Recommendation 1)continue PPI, discontinue all NSAID 2)will hold endoscopic evaluation at this time due to severe metabolic derangement and he d oes not have any evidence of active GI bleeding at this time. However would recommend EGD evaluation prior to discharge from the hospital or if he develo ps active GI bleeding. Code Status: Full Code Primary Care Physician: Ashly Quick MD, MD Thank you for allowing me to participate in the care of this patient. SARA MONGE MD 04/02/2012 Hi Farrar - 04/02/2012 10:00 AM PDTFormatting of this note might be different from the origi nal. Consults by Juan Timmons MD at 04/02/12 1000 Author: Juan Timmons MD Service: Nephrology Author Type: Physician Filed: 04/02/12 1307 Date of Service: 04/02/12 1000 Status: Signed Welfare Service Aide: Juan Timmons MD (Physician) [facility] Service: NEPHROLOGY CONSULT Note Carol Potter 47 y.o. [id number] male Ashly Quick MD, MD Hospital Day: LOS: 0 days Date of Admission: 04/02/2012 Requesting Physician: ED provider/ Hospitalist Reason for CONSULTATION: ARF/ HYPERKALEMIA History Obtained From: patient, family, CARE TEAM , RECORDS HISTORY OF PRESENT ILLNESS The patient is a 47 y.o. male with significant past medical history of Past Medical History Diagnosis Date Hyperlipidemia Hypertension Diabetes mellitus type II Asthma Thyroid disease Anemia who presented by ambulance from [facility]. Was there at 04/01 at 2100 due [...] of ARF (last known crea in 2010 was1 .7 per records) Lab Results Component Value Date BUN 122* 04/02/2012 BUN 114* 04/02/2012 CREATININE 14.39* 04/02/2012 CREATININE 15.12* 04/02/2012 ONSET ACUTE severity SEVERE Associated with fluid electrolyte acid base imbalances SEVERE HYPERKALEMIA/ ANEMIA RF; NAPROXEN 4 TAB DAILY FOR OVER A WEEK, HEMODYNAMIC EFEFCT OF LISINOPRIL, DIARRHEA WITH B LACK STOOLS, ANEMIA, ? AIN / VASCULITIS WITH RASH Denies any urinary symptoms including foamy urine, blood in urine, burning, increased frequ ency, urgency, hesitancy. denies any FH of kidney problems. denies any hearing loss in childhood. denies chronic sinus problems. +ve use NSAIDS NAPROXEN. Denies any recent Antibiotic use. Denies any recent IV Contrast use. Denies Herbal meds/ heavy metal exposure. Denies any malignancy, TB, Sarcoidosis, Hepatitis. Denies recurrent utis Denies kidney stones Denies prostate problems Denies generalized body aches/pain Denies recent hypotension/ infection Denies recent surgery/ trauma Past Medical History Diagnosis Date Hyperlipidemia Hypertension [...] WITH [employer]; KIDSUNEMPLOYED BEFORE WORKED AT [employer] IN [place]/ [employer] NONE ETOH QUIT 15 YEARS AGODRUGS: USES [...] Concern Not on file Social History Narrative No narrative on file Scheduled Medications carbamazepine 200 mg Oral TID dextrose 25 g Intravenous Once dextrose famotidine 20 mg Oral Daily Or famotidine 20 mg Intravenous Daily sodium bicarbonate 50 mEq Intravenous Once sodium chloride 1,000 mL Intravenous Once DISCONTD: famotidine 20 mg Intravenous BID DISCONTD: famotidine 20 mg Oral BID DISCONTD: sodium chloride 10 mL Intravenous Q8H Continuous Infusions dextrose custom IV infusion builder 100 mL/hr at 04/02/12 0324 sodium chloride PRN Medications acetaminophen, acetaminophen, albuterol, dextrose, dextrose, dextrose, glucagon, glucagon, hydrALAZINE, ondansetron, ondansetron, polyethylene glycol Allergy: Allergies Allergen Reactions Penicillins Other (See Comments) unknown OBJECTIVE Vital Signs: BP 175/77 | Pulse 88 | Temp(Src) 97.6 F (36.4 C) (Oral) | Resp 20 | Ht 1.702 m (5' 7") | Wt 88.9 kg (195 lb 15.8 oz) | BMI 30.70 kg/m2 | SpO2 100% I&O Detailed Table: Weight change: ROS: General: Denies fever, chills, sweats, anorexia, +ve fatigue, weakness. Cardiovascular: Denies leg swelling, SOB, +ve chest pain. HEENT: Denies recent hearing or visual loss, sore throat or swallowing difficulties, Ear ac he/discharge, sinus problems and oral thrush. Respiratory: Denies chronic cough, hemoptysis, and wheezing. GI: Denies nausea, vomiting +ve black loose stools melena. : Denies burning with urination, blood in urine, foamy urine, urinary frequency, urinary hesitancy, urinary urgency, nocturia, and incontinence now has newman catheter. Musculoskeletal: Denies recent joint pain or swelling, muscle aches. Extremities: Denies swelling in legs or feet. +ve rash on B/L LE Derm: +ve rash, itching all over body. Neuro: Denies dizziness, lightheadedness, tremors, stroke or frequent headaches. Psych: +ve anxiety denies depression, hallucinations, delusions. ALLERGY: Denies hay fever. HEME: +ve profound anemia Denies any bleeding disorder or blood dyscrasias. ENDOCRINE: +ve DM, denies Thyroid problems, Hyperlipidemia. Rest of the ROS Unremarkable. Examination: APPEARANCE: The patient is a pleasant lying in no apparent distress. VITALS: Reviewed as listed. HEAD: NC/AT. EYES: PERRLA. EOMI. Non-icteric sclera. +ve pale conjuctive ENT: No oropharyngeal erythema. Buccal mucosa is dry. No gross ear or nasal proble ms noted. NECK: Supple. No raised JVD or thyromegaly. LYMPHATIC: No palpable lymphadenopathy. LUNGS: Clear to auscultation bilaterally. HEART: S1, S2, no pericardial rub noted. ABDOMEN: Full, soft, no tenderness. Bowel sounds are present. No organomegaly or bruit s noted. EXTREMITIES: no pedal edema noted. No cyanosis or clubbing. Peripheral pulses palpable. SKIN: Warm to touch. Diffuse itchy vesicular rash all over body, confluent mini exco riations from his head to his toes with areas of hyperpigmentation seen at ankle areas NEUROLOGIC: No gross focal motor deficit noted. PSYCH: The patient is alert and oriented x 3, mood and affect looks ok, memory seems to be intact. BACK: no CVA tenderness noted +ve newman catheter LABS: Recent Results (from the past 24 hour(s)) ED GLUCOSE BEDSIDE Component Value Range POC GLUCOSE <29 ED ISTAT TROPONIN Component Value Range POC Troponin I 0.05 POCT GLUCOSE Collection Time 04/02/12 12:31 AM Component Value Range GLUCOSE,POC SCREEN 29 (*) 65 - 99 mg/dL [facility] CARD PANEL W/O TRP (ED ONLY) Collection Time 04/02/12 12:40 AM Component Value Range WBC 9.7 3.8 - 11.0 K/uL RBC 2.14 (*) 4.20 - 5.70 M/uL HGB 6.4 (*) 13.2 - 17.0 g/dL HCT 19.4 (*) 39.0 - 50.0 % MCV 90.3 80.0 - 100.0 fl MCH 30.0 27.0 - 34.0 pg MCHC 33.2 32.0 - 35.5 g/dL RDW SD 56.0 (*) 37 - 53 fl PLT 230 150 - 400 K/uL MPV 7.1 DIFF TYPE AUTOMATED NEUTROPHILS 79.1 (*) 40 - 75 % LYMPHOCYTES 3.7 (*) 15 - 48 % MONOCYTES 5.8 0 - 12 % EOSINOPHILS 11.3 (*) 0 - 7 % BASOPHILS 0.1 0 - 2 % NEUTROPHILS ABS 7.7 (*) 1.9 - 7.4 K/uL LYMPHOCYTES ABS 0.4 (*) 1.0 - 3.9 K/uL MONOCYTES ABS 0.6 0 - 0.8 K/uL EOSINOPHILS ABS 1.1 (*) 0 - 0.5 K/uL BASOPHILS ABS 0.0 0 - 0.1 K/uL Platelet Estimate ADEQUATE MORPHOLOGY 2+ SODIUM 135 135 - 143 mmol/L POTASSIUM 5.9 (*) 3.5 - 4.9 mmol/L CHLORIDE 105 99 - 109 mmol/L CO2 8 (*) 23 - 32 mmol/L ANION GAP AGAP 27 (*) 5 - 20 mmol/L GLUCOSE 196 (*) 65 - 99 mg/dL BUN 114 (*) 8 - 25 mg/dL CREATININE 15.12 (*) 0.70 - 1.30 mg/dL BUN/CREAT 8 CALCIUM 6.5 (*) 8.5 - 10.2 mg/dL TOTAL PROTEIN 6.2 (*) 6.3 - 8.2 g/dL Albumin 2.2 (*) 3.6 - 5.0 g/dL GLOBULIN 4.0 1.3 - 4.9 g/dL A/G 0.6 (*) 1.0 - 2.4 TBIL 1.3 0.1 - 1.5 mg/dL ALK PHOS 88 35 - 115 U/L AST 45 10 - 45 U/L ALT 32 10 - 65 U/L EGFR 4 (*) >60 mL/min/1.73m2 CPK 1632 (*) 55 - 400 U/L INR 1.5 0.9 - 3.5 APTT 40 (*) 23 - 32 seconds MMB 92.1 (*) 0.5 - 3.6 ng/mL CK-MB Index 5.6 CARBAMAZEPINE LEVEL, TOTAL Collection Time 04/02/12 12:40 AM Component Value Range DATE OF LAST DOSE UNKNOWN TIME OF LAST DOSE UNKNOWN CARBAMAZEPINE LEVEL <0.5 (*) 4.0 - 12.0 ug/mL POC CARDIAC TROPONIN Collection Time 04/02/12 12:57 AM Component Value Range POC CARDIAC TROPONIN 0.05 0.00 - 0.10 ng/mL PREPARE RBC (TYPE AND CROSSMATCH) (BLOOD BANK) Collection Time 04/02/12 1:25 AM Component Value Range ARM BAND NUMBER [id number] ABO/RH(D) O POSITIVE ANTIBODY SCREEN NEGATIVE UNIT NUMBER [id number] UNIT NUMBER Value: Testing performed at [facility];[address] [place] [address];[place] [address] BLOOD COMPONENT TYPE Value: LEUKODEPLETED PC Testing performed at [facility];[address] [place] [address];[place] [address] UNIT DIVISION Value: 00 Testing performed at [facility];[address] [place] [address];[place] [address] STATUS OF UNIT Value: ISSUED Testing performed at [facility];[address] [place] [address];[place] [address] TRANSFUSION STATUS OK TO TRANSFUSE CROSSMATCH RESULT COMPATIBLE UNIT NUMBER [id number] BLOOD COMPONENT TYPE LEUKODEPLETED PC UNIT DIVISION 00 STATUS OF UNIT ISSUED TRANSFUSION STATUS OK TO TRANSFUSE CROSSMATCH RESULT COMPATIBLE POCT GLUCOSE Collection Time 04/02/12 1:25 AM Component Value Range GLUCOSE,POC SCREEN 67 65 - 99 mg/dL POC ARTERIAL CG4+ Collection Time 04/02/12 2:03 AM Component Value Range pH, Art 7.148 (*) 7.350 - 7.450 POC PCO2 23 (*) 35 - 45 mmHg POC p02 171 (*) 80 - 105 mmHg POC LACTATE 0.6 0.36 - 1.25 mmol/L POC HCO3 8 (*) 22 - 26 mmol/L POC TCO2 9 (*) 23 - 27 mEq/L POC BASE DEFICIT 21 (*) 0.0 - 2.0 mmol/L POC S02 99 (*) 95 - 98 % POC FIO2 32 POCT GLUCOSE Collection Time 04/02/12 2:14 AM Component Value Range GLUCOSE,POC SCREEN 110 (*) 65 - 99 mg/dL URINE MICROSCOPIC ONLY Collection Time 04/02/12 2:29 AM Component Value Range WBC 6-10 0 - 5 /hpf RBC 16-25 0 - 5 /hpf EPITHELIAL 6-10 BACTERIA TRACE (*) NONE SEEN Mucus, UA 1+ Crystals 3+ RAPID DRUG SCREEN, URINE Collection Time 04/02/12 2:29 AM Component Value Range AMPHETAMINE POSITIVE (*) NEGATIVE OPIATES NEGATIVE NEGATIVE BARBITUATES NEGATIVE NEGATIVE PCP NEGATIVE NEGATIVE BENZODIAZEPINE NEGATIVE NEGATIVE THC NEGATIVE NEGATIVE COCAINE NEGATIVE NEGATIVE TRICYCLIC ANTIDEPRESS NEGATIVE NEGATIVE ACETAMINOPHEN/PARACET POSITIVE (*) NEGATIVE METHAMPHETAMINES POSITIVE (*) NEGATIVE METHADONE NEGATIVE NEGATIVE SALICYLATE LEVEL Collection Time 04/02/12 2:32 AM Component Value Range SALICYLATE 2.6 (*) 2.8 - 20.0 mg/dL POC CLINITEK 10 Collection Time 04/02/12 2:34 AM Component Value Range Color, UA YELLOW Clarity, UA TURBID Glucose, UA NEGATIVE NEGATIVE mg/dL Bilirubin, UA NEGATIVE NEGATIVE Ketones, UA NEGATIVE NEGATIVE mg/dL Spec Grav, UA 1.020 1.001 - 1.035 Blood, UA MODERATE (*) NEGATIVE pH, UA 5.0 4.6 - 8.0 Protein, UA 100 (*) NEGATIVE mg/dL Urobilinogen, UA 0.2 <1.1 mg/dL Nitrite, UA NEGATIVE NEGATIVE WBC, UA NEGATIVE NEGATIVE POCT GLUCOSE Collection Time 04/02/12 2:56 AM Component Value Range GLUCOSE,POC SCREEN 95 65 - 99 mg/dL POCT GLUCOSE Collection Time 04/02/12 4:02 AM Component Value Range GLUCOSE,POC SCREEN 102 (*) 65 - 99 mg/dL IMAGING: Us renal ordered Patient's old records and labs were reviewed in detail and summarized. PROBLEM LIST Principal Problem: *Renal failure, acute Active Problems: Rhabdomyolysis Type II or unspecified type diabetes mellitus without mention of complication, not stated as uncontrolled Essential hypertension, benign Amphetamine and other psychostimulant dependence, continuous Hyperkalemia Anemia in chronic kidney disease Unspecified asthma Hyperphosphatemia ASSESSMENT & PLAN ARF LIKELY POSSIBILITIES INCLUDE: Renal hypoperfusion NAPROXEN 4 TAB DAILY FOR OVER A WEEK, HEMODYNAMIC EFEFCT OF LISINOPRIL , DIARRHEA WITH BLACK STOOLS, ANEMIA, rhabdomyolysis ( cpk not too high), use of metampheta mine R.O AIN HAS EOSINOPHILIA (also on naproxen) R.O VASCULITIS SKIN RASH R.O POST INFECTIOUS GLOMERULONEPHRITIS R.O HYDRONEPHROSIS R.O ANCA VASCULITIS / ANTI GBM GIVEN EPISTAXIS VS ? HEMOPTYSIS THIS AM WITH ARF Nahco3 drip Hold lisinopril Stop naproxen Stop metformin given risk of lactic acidosis with cr above 1.5 in men Urine studies ordered C3, C4 levels Secondary w/u ordered including w/u for vasculitis US Renal R.O hydropnephrosis Strict I & O, Daily weights Daily RFP Renal diet AVOID NSAIDS/ ADAM-2 INHIBITORS AVOID NEPHROTOXIC MEDS INCLUDING AMINOGLYCOSIDES/ IV CONTRAST Assess daily for need for hd Dose all meds for crcl less than 15 mls/min Lab Results Component Value Date BUN 122* 04/02/2012 BUN 114* 04/02/2012 CREATININE 14.39* 04/02/2012 CREATININE 15.12* 04/02/2012 HYPERKALEMIA Likely secondary to ARF/ SEVERE ACIDOSIS contributing nahco3 drip Low k diet Watch k level mk Telemetry Lab Results Component Value Date K 5.9* 04/02/2012 . ACIDOSIS CONTINUE NAHCO3 DRIP Lab Results Component Value Date CO2 11* 04/02/2012 CO2 8* 04/02/2012 ANEMIA GOT PRBCS LIKELY DUE TO GI BLEED D/W DR CLAROS WILL CONSULT GI GIVEN H/O BLACK STOOLS PER PATIENT AT HOME AND ON NAPROSYN CHECK IRON PANEL HTN WATCH BP CLOSELY FOR NOW BP Readings from Last 3 Encounters: 04/02/12 165/78 HYPERPHOSPHATEMIA LIKELY SECONDARY TO ARF LOW P DIET ONCE START FEEDING Lab Results Component Value Date PHOS 11.8* 04/02/2012 CASE DISCUSSED IN DETAIL WITH PATIENT/ FAMILY SPOKE WITH FATHER AND STEP MOTHER ON THE PHON E / HOSPITALIST, ANSWERS ALL QUESTIONS IN DETAIL, VERBALIZES UNDERSTANDING I thank Dr kan for giving me the opportunity to take part in the care of this karolina p atient with multiple complex medical problems JUAN TIMMONS MD 04/02/2012 documented in this en counter ED Notes Conversion Transaction, Provider Unknown - 04/02/2012 6:05 AM PDTFormatting of this note m ight be different from the original. ED Notes by Salima Rodriguez RN at 04/02/12604 Author: Salima Rodriguez RN Service: (none) Author Type: Registered Nurse Filed: 04/02/12604 Date of Service: 04/02/12604 Status: Signed Welfare Service Aide: Salima Rodriguez RN (Registered Nurse) Patient sleeping at this time in NAD. Salima Rodriguez RN 04/02/12604 onver quique Transaction, Provider Unknown - 04/02/2012 3:52 AM PDT ED Notes by Salima Rodriguez RN at 04/02/12 0352 Author: Salima Rodriguez RN Service: (none) Author Type: Registered Nurse Filed: 04/02/12351 Date of Service: 04/02/12351 Status: Signed Welfare Service Aide: Salima Rodriguez RN (Registered Nurse) Hospitalist at bedside. Salima Rodriguez RN 04/02/12351 onver quique Transaction, Provider Unknown - 04/02/2012 1:54 AM PDT ED Notes by Salima Rodriguez RN at 04/02/12153 Author: Salima Rodriguez RN Service: (none) Author Type: Registered Nurse Filed: 04/02/12153 Date of Service: 04/02/12153 Status: Signed Welfare Service Aide: Salima Rodriguez RN (Registered Nurse) RT called for ABG Salima Rodriguez RN 04/02/12153 onver quique Transaction, Provider Unknown - 04/02/2012 1:25 AM PDT ED Notes by Chidi Amaro RN at 04/02/12124 Author: Chidi Amaro RN Service: (none) Author Type: Registered Nurse Filed: 04/02/12126 Date of Service: 04/02/12124 Status: Signed Welfare Service Aide: Chidi Amaro RN (Registered Nurse) Critical result of 8 on lab CO2 was called to ED by Vickie in laboratory at time 0125. Noti fied Dr Kan of critical value. Chidi Amaro RN 04/02/12126 onver quique Transaction, Provider Unknown - 04/02/2012 1:20 AM PDT ED Notes by Salima Rodriguez RN at 04/02/12119 Author: Salima Rodriguez RN Service: (none) Author Type: Registered Nurse Filed: 04/02/12143 Date of Service: 04/02/12119 Status: Signed Welfare Service Aide: Salima Rodriguez RN (Registered Nurse) Patient placed on contact precautions, sign placed on door and isolation cart outside room. Salima Rodriguez RN 04/02/12 0144 onver quique Transaction, Provider Unknown - 04/02/2012 1:05 AM PDT ED Notes by Chidi Amaro RN at 04/02/12104 Author: Chidi Amaro RN Service: (none) Author Type: Registered Nurse Filed: 04/02/12106 Date of Service: 04/02/12104 Status: Signed Welfare Service Aide: Chidi Amaro RN (Registered Nurse) Critical result of hgb 6.4, hct 19.4 was called to ED by Rowena in laboratory at time 0105. Notified Dr. Kan of critical value. Chidi Amaro RN 04/02/12106 [email or web address] alejo DO - 04/02/2012 12:49 AM PDTFormatting of this note might be different from the o riginal. ED Provider Notes by Kimber Kan DO at 04/02/1248 Author: Kimber Kan DO Service: (none) Author Type: Physician Filed: 04/03/12242 Date of Service: 04/02/1248 Status: Signed Welfare Service Aide: Kimber Kan DO (Physician) Procedure Orders: 1. Critical Care [[id number]] ordered by Kimber Kan DO at 04/03/12240 [facility] Department of Emergency Medicine Pre-arrival Provider: Another ED Provider Name: Dr. Oro ([place]) Pertinent History and Concerns: CC was chest pain and dyspnea, relieved with nitro; noncomp liant with medications; prior history of mild renal insufficiency Relevant Labs or Studies: K:7.3; Cr: 14; widened QRS, no peaked T waves; no myocardial isch emia on labs Relevant Medications: Given: Ca Gluconate, Insulin, D50, albuterol, kayexalate, Bicarb (04/01/12 2227 : GRANT RUFF) History of Present Illness Patient Identification Carol Potter is a 47 y.o. male. Patient information was obtained from past medical records. History/Exam limitations: mental status. Appears to be encephalopathic Patient presented to the Emergency Department by: Ambulance Chief Complaint Chief Complaint Patient presents with Electrolyte Imbalance Presented at [facility] last night 04/01 at 2100 complaining of chest pain. Found to have hyperkalemia, anemia and renal failure. Anemia Chest Pain 12:49 AM. Carol Potter is a 47 y.o. male who presented to [facility] with a complaint of belinda [facility] pain. The pt was given NTG which reportedly relieved his chest pain. The pt is noncompl iant with medications. The pt was found to have a creatinine of 14.2 and was hyperkalemic with a K of 7.3. The pt does complain of an "itchy rash." The pt's rash has been present f or the past "4-5 days." The pt denies any current pain. PCP: Ashly Quick MD, MD Past Medical History Diagnosis Date Hyperlipidemia Hypertension Diabetes mellitus type II Asthma Thyroid disease Anemia Past Surgical History Procedure Date Unlisted procedure arthroscopy Prior to Admission medications Not on File Allergies Allergen Reactions Penicillins Other (See Comments) unknown History Social [...] WITH [employer]; KIDSUNEMPLOYED BEFORE WORKED AT [employer] IN [place]/ [employer] NONE ETOH QUIT 15 YEARS AGODRUGS: USES METHAMPHETAMINES PER PATIENTF ATHER HAS COLON CANCER, HEART DISEASEMOTHER 15 YEARS AGONO FH KIDNEY PROBLEMS. History reviewed. No pertinent family history. Review of Systems unable to obtain due to mental status Physical Exam BP 142/67 | Pulse 78 | Resp 22 | SpO2 100% Vital signs interpretation: hypertensive, tachypneic, otherwise normal Pulse Oximetry interpretation: Normal General: Lethargic Eyes: Normal inspection, pupils equal and round, non-icteric ENT: Ears normal Nose normal Pharynx: poor dentition. Unable to visualize the posterior pharynx as the pt bites the t ongue blade Neck: Normal inspection Supple Cardiovascular: Normal rate and rhythm Respiratory: Lungs are clear Abdomen: Soft, no apparent tenderness No guarding or rebound Back: Normal inspection Skin: Warm and dry Diffuse vesicular rash in some places, confluent mini excoriations from his head to his toes Extremities: Pitting edema in BLE Neuro: BRADY, no facial asymmetry Medical Decision Making and Emergency Department Course ED Department Course 12:49 AM Patient presents to ED as a transfer from [facility]. The pt was initially seen for belinda st pain which was relieved with NTG. The pt was found to have a creatinine of 14.2 and a po tassium of 7.3 The pt was given Ca Gluconate, Insulin, D50, albuterol, kayexalate, and Bica rb. The pt was diagnosed with acute renal failure, hyperkalemia, and anemia. Initial vital signs are stable. Initial POC glucose is <29. The pt was given an amp of D50, which improved his glucose to 67. Will give another amp. Labs have been ordered. 1:10 AM The pt is markedly anemic. Will type and cross the pt. 1:26 AM The pt has a marked base deficit. 2:09 AM Reviewed the pt's labs. The pt has a hyperkalemia, is in renal failure, has an elevated CP K and an elevated MMB. The pt's glucose is now 196. The pt's troponin is 0.05. 3:02 AM Order was placed to have Dr. Timmons paged at 2:30 AM. The pt's UDS is positive for methamphe tamines. 3:03 AM Discussed the case with Dr. Timmons, assisted living care manager. He requests that the pt placed on bicarb dr ip, 3 amp and 1 liter of D5 at 100 cc an hour. The pt is in the process of receiving 2 unit s of PRBC. 3:23 AM Discussed the case with Dr. Trujillo, hospitalist. Agrees to treatment plan. Will see the p t in the ED. The patient initially presented with chest pain. The cardiac enzymes are neg, there are no acute changes. The patient was markedly hypoglycemic on arrival. This was rapidly corrected by D50. He was transferred here because of new only set ARF and hypokalemia. He was agitated , although not confused to place, was unaware of the date and was not making very coherent a nswers to questions. He had been given Kayexalate, D50, Ca gluconate, insulin and bicarb at the transferring institution. His CPK is elevated, most likely to rhabdomyalysis, he also johnson d a marked metabolic acidosis. He is positive for amphetamines and I did finally get him to admit to using them. Amphetamine can cause met acidosis, chest pain and rhabdo along with AR F. Records Reviewed Nursing notes. Records unavailable No previous ED visits for review in [facility]. Laboratory Evaluation Results Procedure Component Value Ref Range Date/Time Salicylate (Aspirin) Level [[id number]] (Abnormal) Collected:04/02/12231 Order Status:Completed Updated:04/02/12311 Specimen Information:Blood SALICYLATE 2.6 (L) 2.8 - 20.0 mg/dL Urine Drug Screen [[id number]] (Abnormal) Collected:04/02/12228 Order Status:Completed Updated:04/02/12250 Specimen Information:Urine AMPHETAMINE POSITIVE (A) NEGATIVE OPIATES NEGATIVE NEGATIVE BARBITUATES NEGATIVE NEGATIVE PCP NEGATIVE NEGATIVE BENZODIAZEPINE NEGATIVE NEGATIVE THC NEGATIVE NEGATIVE COCAINE NEGATIVE NEGATIVE TRICYCLIC ANTIDEPRESS NEGATIVE NEGATIVE ACETAMINOPHEN/PARACET POSITIVE (A) NEGATIVE METHAMPHETAMINES POSITIVE (A) NEGATIVE METHADONE NEGATIVE NEGATIVE Urine Microscopic [[id number]] (Abnormal) Collected:04/02/12228 Order Status:Completed Updated:04/02/12250 Specimen Information:Urine WBC 6-10 0 - 5 /hpf RBC 16-25 0 - 5 /hpf EPITHELIAL 6-10 /lpf BACTERIA TRACE (A) NONE SEEN Mucus, UA 1+ Crystals 3+ /hpf POC clinitek 10 [[id number]] (Abnormal) Collected:04/02/12233 Order Status:Completed Updated:04/02/12236 Color, UA YELLOW Clarity, UA TURBID Glucose, UA NEGATIVE NEGATIVE mg/dL Bilirubin, UA NEGATIVE NEGATIVE Ketones, UA NEGATIVE NEGATIVE mg/dL Spec Grav, UA 1.020 1.001 - 1.035 Blood, UA MODERATE (A) NEGATIVE pH, UA 5.0 4.6 - 8.0 Protein, UA 100 (A) NEGATIVE mg/dL Urobilinogen, UA 0.2 <1.1 mg/dL Nitrite, UA NEGATIVE NEGATIVE WBC, UA NEGATIVE NEGATIVE Carbamazepine [[id number]] (Abnormal) Collected:04/02/1239 Order Status:Completed Updated:04/02/12229 DATE OF LAST DOSE UNKNOWN TIME OF LAST DOSE UNKNOWN CARBAMAZEPINE LEVEL <0.5 (L) 4.0 - 12.0 ug/mL Cardiac Panel [[id number]] (Abnormal) Collected:04/02/1239 Order Status:Completed Updated:04/02/12125 WBC 9.7 3.8 - 11.0 K/uL RBC 2.14 (L) 4.20 - 5.70 M/uL HGB 6.4 (LL) 13.2 - 17.0 g/dL HCT 19.4 (LL) 39.0 - 50.0 % MCV 90.3 80.0 - 100.0 fl MCH 30.0 27.0 - 34.0 pg MCHC 33.2 32.0 - 35.5 g/dL RDW SD 56.0 (H) 37 - 53 fl PLT 230 150 - 400 K/uL MPV 7.1 fl DIFF TYPE AUTOMATED NEUTROPHILS 79.1 (H) 40 - 75 % LYMPHOCYTES 3.7 (L) 15 - 48 % MONOCYTES 5.8 0 - 12 % EOSINOPHILS 11.3 (H) 0 - 7 % BASOPHILS 0.1 0 - 2 % NEUTROPHILS ABS 7.7 (H) 1.9 - 7.4 K/uL LYMPHOCYTES ABS 0.4 (L) 1.0 - 3.9 K/uL MONOCYTES ABS 0.6 0 - 0.8 K/uL EOSINOPHILS ABS 1.1 (H) 0 - 0.5 K/uL BASOPHILS ABS 0.0 0 - 0.1 K/uL Platelet Estimate ADEQUATE MORPHOLOGY 2+ SODIUM 135 135 - 143 mmol/L POTASSIUM 5.9 (H) 3.5 - 4.9 mmol/L CHLORIDE 105 99 - 109 mmol/L CO2 8 (LL) 23 - 32 mmol/L ANION GAP AGAP 27 (H) 5 - 20 mmol/L GLUCOSE 196 (H) 65 - 99 mg/dL BUN 114 (H) 8 - 25 mg/dL CREATININE 15.12 (H) 0.70 - 1.30 mg/dL BUN/CREAT 8 CALCIUM 6.5 (L) 8.5 - 10.2 mg/dL TOTAL PROTEIN 6.2 (L) 6.3 - 8.2 g/dL Albumin 2.2 (L) 3.6 - 5.0 g/dL GLOBULIN 4.0 1.3 - 4.9 g/dL A/G 0.6 (L) 1.0 - 2.4 TBIL 1.3 0.1 - 1.5 mg/dL ALK PHOS 88 35 - 115 U/L AST 45 10 - 45 U/L ALT 32 10 - 65 U/L EGFR 4 (L) >60 mL/min/1.73m2 CPK 1632 (H) 55 - 400 U/L INR 1.5 0.9 - 3.5 APTT 40 (H) 23 - 32 seconds MMB 92.1 (H) 0.5 - 3.6 ng/mL CK-MB Index 5.6 POC cardiac troponin [[id number]] Collected:04/02/1256 Order Status:Completed Updated:04/02/12111 POC CARDIAC TROPONIN 0.05 0.00 - 0.10 ng/mL I personally reviewed the lab results and they have been posted to the chart. Pertinent po sitive and negative findings have been addressed appropriately. Radiology and EKG Evaluation Imaging Results None EK Normal Sinus Rhythm. Rate: 71 Normal P wave, BASSAM Low voltage in limb leads, normal QRS axis Peak T waves in V3, V4, prolonged QT interval No prior EKG for comparison Interpreted by Kimber Kan DO at time of service. Moderate cardiomegaly, mild vascular congestion, normal mediastinum, normal great vessels, no infiltrates. 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 Critical care was necessary to treat or prevent imminent or life-threatening deterioration of the following conditions: metabolic crisis. Critical care was time spent personally by me on the following activities: discussions with consultants, evaluation of patient's response to treatment, examination of patient, obtaini ng history from patient or surrogate, ordering and performing treatments and interventions, ordering and review of laboratory studies, ordering and review of radiographic studies, puls e oximetry, re-evaluation of patient's condition and review of old charts. Attending Note: Documentation assistance provided by Nathan Horner (Scribe). Information recorded by the scribe has been reviewed and validated by me. I yojana post with its contents. DO Kimber Ludwig DO 04/03/12 0243 onversion Transacti on, Provider Unknown - 04/02/2012 12:31 AM PDTFormatting of this note might be different fro m the original. ED Notes by Chidi Amaro RN at 04/02/1230 Author: Chidi Amaro RN Service: (none) Author Type: Registered Nurse Filed: 04/02/1234 Date of Service: 04/02/1230 Status: Signed Welfare Service Aide: Chidi Amaro RN (Registered Nurse) Blood glucose <29. Chidi Amaro RN 04/02/1234 onver quique Transaction, Provider Unknown - 04/02/2012 12:27 AM PDT ED Notes by Chidi Amaro RN at 04/02/1226 Author: Chidi Amaro RN Service: (none) Author Type: Registered Nurse Filed: 04/02/1226 Date of Service: 04/02/1226 Status: Signed Welfare Service Aide: Chidi Amaro RN (Registered Nurse) Bed:10
Expected date:
Expected time:
Means of arrival:
Comments:
[facility] onver quique Transaction, Provider Unknown - 04/02/2012 12:27 AM PDT ED Notes by Chidi Amaro RN at 04/02/1226 Author: Chidi Amaro RN Service: (none) Author Type: Registered Nurse Filed: 04/02/1234 Date of Service: 04/02/1226 Status: Signed Welfare Service Aide: Chidi Amaro RN (Registered Nurse) Patient obtunded upon arrival. EMS reports patient was alert and oriented at departure from [facility] and for approximately 30 minutes after. Chidi Amaro RN 04/02/1234 onver quique Transaction, Provider Unknown - 04/01/2012 11:17 PM PDT ED Notes by Chidi Amaro RN at 04/01/122316 Author: Chidi Amaro RN Service: (none) Author Type: Registered Nurse Filed: 04/01/122321 Date of Service: 04/01/122316 Status: Signed Welfare Service Aide: Chidi Amaro RN (Registered Nurse) Per Emilia at [facility] ED: Patient presented to ED at 2100 complaining of "tight" chest pain. Vital signs stable at th at time. Transferring to [facility] with diagnosis of acute renal failure, hyperkalemia, anemia. Hx diabetes, HTN, heart disease Potassium 7.3, creatinine 7.29, H&H 7.4, 23.5. Myoglobin 15, troponin 0.03 18g right AC Given at [facility]: 324mg ASA PO Nitro x2 with complete chest pain relief 45 grams kayexalate PO 1 amp bicarb IVP 1 gram calcium gluconate IVP 10 units regular insulin IVP 1 amp D50 IVP Albuterol nebulizer Vital signs prior to transport: 140/48, HR 84, RR 16, 100% room air. A&O, but "agitated," per Emilia. Chidi Amaro RN 04/01/122321 docume nted in this encounter Miscellaneous Notes Op Note - Oskar Meyer MD - 04/10/2012 4:13 PM PDTFormatting of this note might be differen t from the original. Op Note signed by Oskar Meyer MD at 04/15/12 8078 Author: Oskar Meyer MD Service: (none) Author Type: Physician Filed: 04/15/12 1157 Date of Service: 04/10/12 1617 Status: Signed Welfare Service Aide: Oskar Meyer MD (Physician) CAROL POTTER Date of : 1965 PREOPERATIVE DIAGNOSIS Acute renal failure with need for dialysis access. POSTOPERATIVE DIAGNOSIS Acute renal failure with need for dialysis access. PROCEDURE Right internal jugular PermCath placement under ultrasound guidance. SURGEON Oskar Meyer MD PRODUCTION CONTROL SCHEDULER None. ANESTHESIA Local with moderate sedation. ESTIMATED BLOOD LOSS Minimal. INDICATIONS Mr. Potter is a 47-year-old gentleman who presented to the hospital with acute renal failure. Due to a need for dialysis, vascular surgery service was consulted for placement of a tunneled dialysis catheter. FINDINGS The patient had good withdrawal and flush from all ports, and the tip was found to be at the SVC-atrial junction. DESCRIPTION OF PROCEDURE The patient was properly identified and brought to the catheterization lab. The patient was placed supine on the catheterization lab table and the patient was given moderate sedation. The right neck and right chest were prepped and draped in the usual sterile fashion. Local anesthetic was then given to the right neck and right chest. Under ultrasound guidance, the internal jugular vein was accessed with the micropuncture needle. Once the internal jugular vein was accessed, a subcutaneous tunnel was then created in the right chest and a 23 cm tunneled dialysis catheter was then placed through the subcutaneous tunnel out the right neck. Next a stiff guidewire was passed into the inferior vena cava and serial dilators were used to dilate the tract and an introducer was placed. Using the introducer, the dialysis catheter was then placed into the internal jugular vein with the tip ending in the superior vena cava-atrial junction. The patient tolerated the procedure well. There was good withdrawal and flush from all ports, and the ports were then instilled with 1.6 mL of concentrated heparin for each port. The deep dermal tissue was then closed with 3-0 Vicryl and the skin was then closed with Dermabond. The patient tolerated the procedure well and was taken back to the [facility] in stable condition. There were no apparent complications. P/ A/jrb/[id number] OSKAR MEYER MD p Note - Oskar Meyer MD - 04/10/2012 3:04 PM PDT Brief Op Note by Oskar Meyer MD at 04/10/12 1506 Author: Oskar Meyer MD Service: Vascular Surgery Author Type: Physician Filed: 04/10/12 1506 Date of Service: 04/10/121503 Status: Signed Welfare Service Aide: Oskar Meyer MD (Physician) [facility] Service: Vascular Surgery Brief Op Note Pre-operative Diagnosis: ARF and need for dialysis access Post-operative Diagnosis: Same Procedure(s): Right IJ permacath placement under ultrasound guidance Surgeon: Oskar Meyer MD Early Childhood Associate(s): None Anesthesia: Moderate sedation and Local anesthesia Estimated Blood Loss: Minimal Other: Not applicable Indications: See pre-operative history and physical. Findings: Good withdrawal and flush from all ports. Complications: None apparent Condition: Stable See dictated operative report for full details. Oskar Meyer MD 04/10/2012 iscellaneous - Conversio n Transaction, Provider Unknown - 04/05/2012 2:14 PM PDTFormatting of this note might be di fferent from the original. Wound Photo by Shanelle Zepeda RN at 04/05/121413 Author: Shanelle Zepeda RN Service: (none) Author Type: Registered Nurse Filed: 04/05/12 6623 Date of Service: 04/05/121413 Status: Signed Welfare Service Aide: Shanelle Zepeda RN (Registered Nurse) [facility] Service: Wound Care Consult Note Hospital Day: LOS: 3 days Post-Op Day: * No surgery found * Patient Summary: Pt with full body rash he has had for two years asked by Dr. Liam royal see pt for suggestions. Wound #1: Plaques of dry skin full body. PROBLEM LIST Principal Problem: *Renal failure, acute Active Problems: Rhabdomyolysis Type II or unspecified type diabetes mellitus without mention of complication, not stated as uncontrolled Essential hypertension, benign Amphetamine and other psychostimulant dependence, continuous Hyperphosphatemia Anemia Acidosis Rash and nonspecific skin eruption Vitamin d deficiency Secondary hyperparathyroidism (of renal origin) Hypocalcemia Hypomagnesemia ASSESSMENT & PLAN. Pt has plaques on dry skin open and weeping areas as well. Pt has severe itching plaques seem karri be on both elbows and feet and trunk of body. Pt has weeping bleedi ng areas from itching. Agree with ID consult . Discussed with Dr. Wheeler. Plan for hydrocorti sone to arms legs and trunk and Aquafor for moisture after Biopsy done. visual inspection Thank you for allowing me to participate in the care of this patient. Shanelle Gaines RN 2:14 PM 04/05/2012 iscel laneous - Conversion Transaction, Provider Unknown - 04/02/2012 8:24 AM PDTFormatting of th is note might be different from the original. Wound Photo by Elsie Pantoja RN at 04/02/12823 Author: Elsie Pantoja RN Service: (none) Author Type: Registered Nurse Filed: 04/02/12824 Date of Service: 04/02/12823 Status: Signed Welfare Service Aide: Elsie Pantoja RN (Registered Nurse) Pt has multiple sores and red raised bumps, locations is over entire torso and large scabbe d over areas on B ankles. PT does not know what they are from, pictures have been taken docume nted in this encounter Plan of [...] LAB | | Testing performed at [facility];[address] [place] [address];[place] [address] | | + + + + +---------+ [...] LAB | | Testing performed at [facility];[address] | | | [facility];[place] [address] SPECIAL REQUESTS | | | LEFT HAND | | | Testing performed at [facility];[address] [facility];[place] [address] CULTURE | | | NO GROWTH IN 5 DAYS. | | | Testing performed at [facility];[address] | | | [facility];[place] [address] REPORT STATUS | | | 04/20/2012 FINAL [...] LAB | | Testing performed at [facility];[address] [place] [address];[place] [address] | | + + + + +---------+ [...] + -------+ | Néstor, Rad Conversion - 02/14/2019 4:18 [...] 87.47 ml D-E Excursion: 2.04 cm E-F Grainger: 0.07 | | | m/s EPSS: 1.21 [...] TV A Lenard: 0.53 m/s TV Dec Grainger: 6.33 | | | m/s2 TV Dec Time: 150.03 ms TV E Lenard: 0.94 m/s TV E/A Ratio: | | | 1.76 Travel Money Advisor: PAUL Authenticated by: Giovany Everett MD | | | Report Date/Time: 04-13-2012 17:46:53 | | + + + + + | Procedure Note | + + | Khalif Palm Conversion - 02/14/2019 4:18 AM PDT Patient Name: Aleisha POTTER | | : 1965 Performing Physician: Giovany [...] (A-L): 40.32 | | ml/m2LAAs A2C: 23.95 cw3AZWEX A-L A2C: 79.86 mlLALs A2C: 6.09 cmLAAs A4C: 25.15 | | dc8ECOPE A-L A4C: 85.78 mlLALs A4C: 6.26 cmAo Diam: 3.79 cmAV Cusp: 2.35 cmLA | | Diam: 5.00 cmLA/Ao: 1.31%FS: 27.35 %EDV(Teich): 166.76 mlEF(Teich): 52.45 | | %ESV(Teich): 79.28 mlIVSd: 1.28 cmIVSs: 1.43 cmLVIDd: 5.80 cmLVIDs: 4.21 | | cmLVPWd: 1.38 cmLVPWs: 1.48 cmSV(Teich): 87.47 mlD-E Excursion: 2.04 cmE-F | | Grainger: 0.07 m/sEPSS: 1.21 cmHR: 66.51 BPMAV maxP.54 mmHgAV meanP.02 | | mmHgAV Vmax: 1.46 m/[place]uy[place] Vmean: 1.07 m/[place]uy[place] VTI: 30.65 cmAVA Vmax: 3.14 cm2AVA | | (VTI): 3.18 or5OQNW Dopp: 3.15 l/xzad5VXXK Dopp: 6.56 l/minHR: 67.34 BPMLVOT | | [...] | | VTI: 25.98 cmMVA (VTI): 3.75 tc2Imccjn e': 0.06 m/sSeptal E/e': 19.82Lateral e': | [...] A Lenard: 0.53 | | m/sTV Dec Grainger: 6.33 m/s2TV Dec Time: 150.03 msTV E Lenard: 0.94 m/sTV E/A Ratio: | | 1.76 Travel Money Advisor: KVWAuthenticated by: Giovany Everett [facility] Date/Time: 04-13-2012 | | 17:46:53 | |EF(Teich): [...] | |D-E Excursion: 2.04 cm | |E-F Grainger: 0.07 m/s | |EPSS: 1.21 cm | [...] |MV DecT: 160.22 ms | |MV E Elnard: 1.28 m/s | |MV E/A Ratio: 1.95 [...] A Lenard: 0.53 m/s | |TV Dec Grainger: 6.33 m/s2 | |TV Dec Time: 150.03 ms | |TV E Lenard: 0.94 m/s | |TV E/A Ratio: 1.76 | | | |Travel Money Advisor: KVW | |Authenticated by: Giovany Everett MD [...] | Testing performed | | | at [facility];[address] [place] [address];[place] [address] SPECIAL REQUESTS | | | L WRIST | | | Testing performed at [facility];[address] [place] [address];[place] [address] | | | CULTURE NO GROWTH IN 5 DAYS. | | | Testing performed | | | at [facility];[address] [place] [address];[place] [address] REPORT STATUS | | | 04/19/2012 FINAL [...] | Testing performed | | | at [facility];[address] [place] [address];[place] [address] SPECIAL REQUESTS | | | L ARM | | | Testing performed at [facility];[address] [place], [place] [address]ft [facility];[place] [address] | | | CULTURE NO GROWTH IN 5 DAYS. | | | Testing | | | performed at [facility];[address] [place] [address];[place] [address] REPORT STATUS | | | 04/19/2012 FINAL [...] | Testing performed | | | at [facility];[address] [place] [address];[place] [address] SPECIAL REQUESTS | | | L WRIST | | | Testing performed at [facility];[address] [place] [address];[place] [address] | | | GRAM STAIN GRAM POSITIVE COCCI | | | SEEN ON GRAM STAIN FROM AEROBIC BOTTLE SMEAR RESULTS CALLED TO AND | | | READ BACK BY: SOULEYMANE Levine IN 4RP AT 0732 ON [id number] BY CRK | | | GRAM POSITIVE COCCI IN | | | CLUSTERS CALLED | | | RESULTS TO BEST Tan ON 4RP AT 1140 ON 04/14/12 [facility] RESULTS REPEATED | | | Testing performed | | | at [facility];[address] [place] [address];[place] [address] CULTURE | | | STAPHYLOCOCCUS AUREUSAbnormal | | | GROWTH IN TWO OF TWO BOTTLESAbnormal | | | TIME TO | | | DETECTION: 0.71 DAYS | | | Testing performed at [facility], [address] [place], [place] | | | [address] REPORT STATUS 04/15/2012 | | | FINAL [...] | Testing performed at | | | [facility];[address] [place] [address];[place] [address] SPECIAL REQUESTS | | | ART | | | Testing performed at [facility];[address] [facility];[place] [address] | | | GRAM STAIN GRAM POSITIVE COCCI | | | SEEN ON GRAM STAIN FROM AEROBIC BOTTLE SMEAR RESULTS CALLED TO AND | | | READ BACK BY: DEIDRE Mccullough IN P AT 0611 ON [id number] BY CRK | | | Testing performed at [facility];[address] | | | [facility];[place] [address] CULTURE | | | STAPHYLOCOCCUS AUREUSAbnormal | | | GROWTH IN ONE OF TWO BOTTLESAbnormal | | | TIME TO DETECTION: 0.65 | | | DAYS Testing | | | performed at [facility], [address] [place] [address] | | | REPORT STATUS 04/17/2012 FINAL [...] | Testing performed | | | at [facility];[address] [facility];[place] [address] SPECIAL REQUESTS | | | RHAND | | | Testing performed at [facility];[address] [facility];[place] [address] | | | GRAM STAIN GRAM POSITIVE COCCI IN | | | CLUSTERS SEEN IN AEROBIC BOTTLE SMEAR RESULTS CALLED TO AND READ BACK | | | BY: DAVID Díaz/4RP 1921 JCMAbnormal | | | GRAM POSITIVE COCCI IN CLUSTERS SEEN ON SMEAR OF | | | ANAEROBIC BOTTLE | | | CALLED TO 4RP/DAVID Díaz ON 04/14/12 AT 0657 BY LL READBACK | | | Testing performed at [facility];[address] | | | [facility];[place] [address] CULTURE | | | STAPHYLOCOCCUS AUREUSAbnormal | | | TIME TO DETECTION: 0.67 DAYS | | | GROWTH IN TWO OF TWO | | | BOTTLESAbnormal | | | VANCOMYCIN TERRANCE IS LESS THAN OR EQUAL TO 0.5 Mcg/mL | | | Testing performed at [facility], [address] | | | [place] [address] REPORT STATUS | | | 04/15/2012 FINAL [...] + + | Performing | Address | [facility] | Phone Number | | Organization | [...] | CAROL POTTER US DOPPLER VENOUS ARM RIGHT 04/10/2012 9:15 [...] LAB | | Testing performed at [facility];[address] | | | [facility];[place] [address] CULTURE | | | >15 COLONIES STAPHYLOCOCCUS AUREUSAbnormal | | | THIS S. AUREUS IS SUSCEPTIBLE TO | | | METHICILLINAbnormal | | | Testing performed at [facility], [address] [facility], [place], [place] | | | [address] REPORT STATUS 04/12/2012 | | | FINAL [...] SURGEON Oskar Meyer MD | | | PRODUCTION CONTROL SCHEDULER None. ANESTHESIA Local with moderate sedation. | [...] Oskar Meyer MD | | | | PRODUCTION CONTROL SCHEDULER | | None. | | | | [...] SURGEON Oskar Meyer MD | | | PRODUCTION CONTROL SCHEDULER None. ANESTHESIA Local with moderate sedation. | [...] | | apparent complications. Read by OSKAR MEYRE MD 04/10/2012 04:13 P | | | [...] Oskar Meyer MD | | | | PRODUCTION CONTROL SCHEDULER | | None. | | | | [...] | Testing performed | | | at [facility];[address] [facility];[place] [address] SPECIAL REQUESTS | | | RAC | | | Testing performed at [facility];[address] [facility];[place] [address] | | | GRAM STAIN GRAM POSITIVE COCCI IN | | | CLUSTERS SEEN ON SMEAR FROM AEROBIC BOTTLEAbnormal | | | SMEAR RESULTS CALLED TO AND READ | | | BACK BY: YZAMIN DUNCAN, 04/10/12 AT 2356 BY | | | Testing performed at [facility];[address];[place] [address] CULTURE | | | STAPHYLOCOCCUS AUREUSAbnormal | | | GROWTH IN ONE OF TWO BOTTLESAbnormal | | | TIME TO DETECTION: 0.31 DAYS | | | VANCOMYCIN TERRANCE IS | | | EQUAL TO ONE. | | | Testing performed at [facility], [address] [place], [place] | | | [address] REPORT STATUS 04/13/2012 | | | FINAL [...] | Testing performed | | | at [facility];[address] [place] [address];[place] [address] SPECIAL REQUESTS | | | LAC | | | Testing performed at [facility];[address] [place] [address] | | | GRAM STAIN GRAM POSITIVE COCCI | | | SEEN ON GRAM STAIN FROM AEROBIC AND ANAEROBIC BOTTLES SMEAR RESULTS | | | CALLED TO AND READ BACK BY: LINDA Mccullough IN [facility] AT 1340 ON [id number] BY | | | CRK Testing | | | performed at [facility];[address] [place] [address] CULTURE | | | STAPHYLOCOCCUS AUREUSAbnormal | | | STREPTOCOCCUS | | | ANGINOSUSAbnormal | | | TIME TO DETECTION: 0.85 DAYS | | | GROWTH IN TWO OF TWO BOTTLESAbnormal | | | Testing performed at [facility], [address] | | | [place] [address] REPORT STATUS | | | 04/15/2012 FINAL [...] Palm Conversion - 02/14/2019 4:18 AM PDT HISTORY:Renal [...] At | + + + | CASE: [id number] PATIENT: CAROL TARIQ Surgical Pathology Report | EXTERNAL LAB | [...] performance | | | characteristics determined by [facility] and/or [facility] | | | Pathology. These tests may [...] | | | investigational or for research. [facility] and [facility] are | | | certified under the [...] GIVEN Testing | | | performed at [facility];[address];[place] [address] CULTURE | | | >100,000 CFU/ML STAPHYLOCOCCUS | | | AUREUSAbnormal | | | Testing performed at [facility], [address], [place] | | | [address] REPORT STATUS 04/09/2012 | | | FINAL [...] GIVEN Testing | | | performed at [facility];[address];[place] [address] CULTURE | | | >100,000 CFU/ML STAPHYLOCOCCUS | | | AUREUSAbnormal | | | Testing performed at [facility], [address], [place] | | | [address] REPORT STATUS 04/08/2012 | | | FINAL [...] | Testing performed | | | at [facility];[address] [place] [address];[place] [address] SPECIAL REQUESTS | | | RAC | | | Testing performed at [facility];[address] [place] [address];[place] [address] | | | CULTURE NO GROWTH IN 5 DAYS. | | | Testing | | | performed at [facility];[address] [place] [address];[place] [address] REPORT STATUS | | | 04/09/2012 FINAL [...] LAB | | Testing performed at [facility];[address] | | | [address];[place] [address] AFB STAIN | | | NO ACID FAST BACILLI SEEN | | | Testing performed at [facility], [address] [place] [address], | | | [place] [address] CULTURE | | | NO ACID FAST BACILLI ISOLATED | | | Testing performed at [facility], [address] [place] [address], | | | [place] [address] REPORT STATUS | | | 05/16/2012 FINAL [...] | Testing performed | | | at [facility];[address] [place] [address];[place] [address] SPECIAL REQUESTS | | | LAC | | | Testing performed at [facility];[address] [place] [address];[place] [address] | | | CULTURE NO GROWTH IN 5 DAYS. | | | Testing | | | performed at [facility];[address] [place] [address];[place] [address] REPORT STATUS | | | 04/09/2012 FINAL [...] Conversion - 02/14/2019 4:18 AM PDT CAROL POTTER1965 47 years MaleXR CHEST | | 2 VIEW FRONTAL AND IAXSILM9404/02/2012 1:00 PM INDICATION: Shortness of breath | [...] | Testing performed at | | | [facility];[address];[place] [address] CULTURE | | | NO GROWTH 2 DAYS | | | Testing performed at [facility], [address] [facility], | | | [place] [address] REPORT STATUS | | | 04/04/2012 FINAL [...]
--- OUTSIDE RECORDS SUMMARY | ~2019-12-30 | XMS | Encounter Summary ---
Demographics + + + | Address | [address] | | | [place] [address] | + + + | Home Phone [...] Team Providers + +------+ + | Care Emergency Planner Name | Role | Phone | + +------+ + | Andry Deng DO | PCP | | + +------+ + Encounter Details +--------+ + + + + | Date | Type | Department | Care Team | Description | +--------+ + + + + | 04/02/ | Orders Only | [facility] | Conversion | | | 2015 | | [place]PHROLOGY [place] | Transaction, | | | | | [address] [facility] | Provider Unknown | | | | | [place] | | | | | | [address] | (Fax) | | | | | [phone] | | | +--------+ + + + [...]
--- OUTSIDE RECORDS SUMMARY | ~2019-12-30 | XMS | Encounter Summary ---
Demographics + + + | Address | [address] | | | [place] [address] | + + + | Home Phone | | + + + | Preferred Language | Unknown | + + + | Marital Status | Single | + + + | Denominational Affiliation | Unknown | + + + | Race | or | + + + | Ethnic Group | Not or | + + + Author + + + | Organization | Unknown | + + + | Address | [...] Team Providers + +------+ + | Care Machine Tool Operator Name | Role | Phone | + +------+ + | Berenice Hicks | PCP | | + +------+ + Encounter Details +--------+--------+ + + + | Date | Type | Department | Care Team | Description | +--------+--------+ + + + | 11/10/ | Travel | | | | | 2020 | | | | | +--------+--------+ + + + Social History + +-------+ [...]
--- OUTSIDE RECORDS SUMMARY | ~2019-12-30 | XMS | Encounter Summary ---
Demographics + + + | Address | [address] | | | [place] [address] | + + + | Home Phone | | + + + | Preferred Language | Unknown | + + + | Marital Status | Unknown | + + + | Episcopal Affiliation | 1076 | + + + | Race | Unknown | + + + | Ethnic Group | Unknown | + + + Author + + + | Author | [facility] | | | and [place] | + + + | Organization | [facility] | | [...] Team Providers + +------+ + | Care [employer] Name | Role | Phone | + +------+ + PCP | Unavailable | + +------+ + Encounter Details +--------+ + + + + | Date | Type | Department | Care Team | Description | +--------+ + + + + | 07/03/ | Hospital | [facility] | Conversion | | | 2012 | Encounter | [facility] | Transaction, | | | | | CLINIC [address] | Provider Unknown | | | | | [place], [place] | | | | | | [address] | (Fax) | | | | | [phone] | | | +--------+ + + + [...] tablet by mouth | | 0 | 09/14/20 | | | (ATARAX) 25 MG | every 6 hours if | | | 12 | | | tablet | needed. May cause | | | | | | | drowsiness. | | | | | + + + +---------+ + + | lidocaine | Apply a small amount | | 0 | 09/14/20 | | | (XYLOCAINE JELLY) 2% | [...] from the original. Pre-Procedure Instructions by Shyanne Blue RN at 07/03/121444 Author: Shyanne Blue RN Service: Anesthesiology Author Type: Registered Nurse Filed: 07/03/12 1546 Date of Service: 07/03/121444 Status: Signed Quality Assurance Associate: Shyanne Blue RN (Registered Nurse) Talked to Patients Shyanne , just making sure he had BP rechecked,and to see if Dr Malik office got a hold of them. I informed her of his critical Potassium lab and low BP. I told her I would call the office and give them her cell number. recalled office at 1546, they w ere able to get ahold of Shyanne and give instructions. Shyanne Blue rnc onver quique Transaction, Provider Unknown - 07/03/2012 9:05 AM PST Pre-Procedure Instructions by Shyanne Blue RN at 07/03/12904 Author: Shyanne Blue RN Service: Anesthesiology Author Type: Registered Nurse Filed: 07/03/1218 Date of Service: 07/03/12904 Status: Signed Quality Assurance Associate: Shyanne Blue RN (Registered Nurse) Talked with Dr Doherty about pt recent ER visit and labs, pt does not meet mets of 4 mainly due to pain in hips limiting activity, does have chest pain that he was seen in [facility] for on the , pt was told it was muscular pain and discharged. Bp low today,I also talked to dr Meyer about BP. pt given option to go to ER here but chose to go to home clinics for BP rechecks today. Will repeat bmp. And hold Norvasc night before surgery . , Shyanne Blue c docume nted in this encounter Plan of [...] EXTERNAL LAB | | Testing performed at [address];[place] [address] MRSA PCR | | | NEGATIVE Testing performed at | | | [address];[place] [address] | | + + + + +---------+ + + | Performing | Address | City/State/Zipcode | Phone Number | | Organization | | | | + +---------+ + + | EXTERNAL LAB | | | | + +---------+ + + documented in this encounter Visit Diagnoses Not on filedocumented in this encounter"
--- OUTSIDE RECORDS SUMMARY | ~2019-12-30 | XMS | Clinical Summary ---
Demographics + + + | Address | [address] | | | [place] [address] | + + + | Home Phone [...] + + + | Author | [facility] | | | and [place] | + + + | Organization | [facility] | | [...] Team Providers + +------+ + | Care Transplant Worker Name | Role | Phone | [...] to scalp once or | | | 4/20 | | e | | 0.1 % [...] as directed by | | 0 | /1 | | Activ | | MISC | physician | | | 420 | | e | | | | | | 12 | | | + + + +---------+------+------+-------+ | telmisartan | Take 40 mg by mouth | | 0 | 02/22 | | Activ | | (MICARDIS) 40 mg | Daily. | | | 20 | | e [...] + + + + | Overview: JAMIL [id number] Decision | + + + +---+ | [...] + | Mother | | | from [place] | | | | (Age | | [...] + + Plan of Treatment + + +-------+ + | Health Maintenance | Due Date | Last | Comments | | | | Done | | + + +-------+ + | Vaccine: | | | | | Dtap/Tdap/Td (1 - | 2 | | | | Tdap) | | | | + + +-------+ + | Vaccine: Zoster (1 | | | | | of 2) | 3 | | | + + +-------+ + | Vaccine: Influenza | | | | | (#1) | 0 | | | + + +-------+ + Implants + +------+--------+ +--------+--------+--------+ | Implanted [...] | Left: | | | 10/05/ | [id number] | | Curved - Sn/AImplanted: Qty: | | Neck | | | 2013 | [id number] | | 1 on 07/07/2012 by Oskar Meyer | | | | | | /N/A | | MD Gabe | | | | | | / | | | | | | | | 5X | + +------+--------+ +--------+--------+--------+ | Catheter Hemodialysis Alpha | | Left: | | | 02/22/ | [id number] | | Pre Cvd Detention Std | | Neck | | | 2012 | 0 | | Hemosplit 14.5 24cm - | | | | | | /[id number] | | [id number]: Qty: 1 on | | | | | | 90 | | 07/11/2012 by Oskar Meyer, | | | | | | /[id number] [...] | | + + + + + Insurance + +--------+ [...] +--------+ +---------+--------+ | MEDICARE | MEDICA | [id number] | 06/24/19 | [phone] | | Medica | | | RE | | 13-Pre | 5 | | re | | | PART A | | sent | | | | | | AND B | | | | | | + +--------+ +--------+ +---------+--------+ | PENDING SALE TO [facility] | IHS | [id number] | | | | Indemn | | SERVICE | YELLOW | | 963-Pr | | | ity | | | HAWK | | esent | | | | + +--------+ +--------+ +---------+--------+ | MEDICAID [place] | MEDICA | [id number] | | [phone] | | Medica | [...] Person | Self | [birth year] | [address] | | | al/Fam | | 1965 | [phone] | [address] [place], [place] | | | juan | | | [address] (Home) | [address] | + +--------+ +--------+ + + | Enrique Potter | Person | Self | [birth year] | [address] | | | al/Fam | | 1965 | [phone] | [address] [place], [place] | | | [place] | | | [address] (Home) | [address] | + +--------+ +--------+ + + Advance Directives + + + + + | Type | Date Recorded | Patient | Explanation | | | | Lab Assistant | | + + + + + | Power of | | | | | Field Technician | | | | + + + + + | Advance | | | | | Directive | | | | + + + + +
--- OUTSIDE RECORDS SUMMARY | ~2019-12-30 | XMS | Encounter Summary ---
Demographics + + + | Address | [address] | | | [place] [address] | + + + | Home Phone | | + + + | Preferred Language | Unknown | + + + | Marital Status | Single | + + + | Latter Day Affiliation | Unknown | + + + | Race | or | + + + | Ethnic Group | Not or | + + + Author + + + | Author | [facility] | + + + | Organization | [facility] | + + + | Address | [...] Providers + +------+ + | Care Chief Payroll Clerk Name | Role | Phone | [...] | Denise, 3rd floor | | disease) ([facility]) | | | | [place], [place] | | | | | | [address] | | | | | | [phone] | | | +--------+------+ + + + [...] section. | | | | | disease) ([facility]) | | + +--------+ + + + | CULTURE, URINE [facility] | Routin | 11/11/2019 | Type 2 diabetes | Results for this | | | e | 2:07 PM | mellitus with ESRD | procedure are in the | | | | PDT | (end-stage renal | results section. | | | | | disease) ([facility]) | | + +--------+ + + + | HEPATITIS A AB, IGG | Routin | 11/11/2019 | Type 2 diabetes | Results for this | | | e | 2:07 PM | mellitus with ESRD | procedure are in the | | | | PDT | (end-stage renal | results section. | | | | | disease) ([facility]) | | + +--------+ + + + | DRUG SCREEN 9 PANEL, | Routin | 11/11/2019 | Type 2 diabetes | Results for this | | S/P,W/REFLEX QUANT | e | 2:07 PM | mellitus with ESRD | procedure are in the | | | | PDT | (end-stage renal | results section. | | | | | disease) ([facility]) | | + +--------+ + + + | C3 AMANDA | Routin | 11/11/2019 | Type 2 diabetes | Results for this | | | e | 2:07 PM | mellitus with ESRD | procedure are in the | | | | PDT | (end-stage renal | results section. | | | | | disease) ([facility]) | | + +--------+ + + + | AMANDA IGG | Routin | 11/11/2019 | Type 2 diabetes | Results for this | | | e | 2:07 PM | mellitus with ESRD | procedure are in the | | | | PDT | (end-stage renal | results section. | | | | | disease) ([facility]) | | + +--------+ + + + | HEPATITIS B SURFACE | Routin | 11/11/2019 | Type 2 diabetes | Results for this | | AG W/REFLEX IF | e | 2:07 PM | mellitus with ESRD | procedure are in the | | INDICATED | | PDT | (end-stage renal | results section. | | | | | disease) ([facility]) | | + +--------+ + + + | CBC AND AUTO DIFF | Routin | 11/11/2019 | Type 2 diabetes | Results for this | | | e | 2:07 PM | mellitus with ESRD | procedure are in the | | | | PDT | (end-stage renal | results section. | | | | | disease) ([facility]) | | + +--------+ + + + | CONFIRMATORY ABO/RH | Routin | 11/11/2019 | Type 2 diabetes | Results for this | | | e | 2:07 PM | mellitus with ESRD | procedure are in the | | | | PDT | (end-stage renal | results section. | | | | | disease) ([facility]) | | + +--------+ + + + | LIT HLA-DP LOW RES- | Routin | 11/11/2019 | Type 2 diabetes | | | KE | e | 2:07 PM | mellitus with ESRD | | | | | PDT | (end-stage renal | | | | | | disease) ([facility]) | | + +--------+ + + + | NAY BERRY VIRUS | Routin | 11/11/2019 | Type 2 diabetes | Results for this | | AB VCA IGG, SERUM | e | 2:07 PM | mellitus with ESRD | procedure are in the | | | | PDT | (end-stage renal | results section. | | | | | disease) ([facility]) | | + +--------+ + + + | QUANTIFERON TB GOLD, | Routin | 11/11/2019 | Type 2 diabetes | Results for this | | BLOOD | e | 2:07 PM | mellitus with ESRD | procedure are in the | | | | PDT | (end-stage renal | results section. | | | | | disease) ([facility]) | | + +--------+ + + + | LIT FLOW HLA II AB | Routin | 11/11/2019 | Type 2 diabetes | | | AG ID KE, BLOOD | e | 2:07 PM | mellitus with ESRD | | | | | PDT | (end-stage renal | | | | | | disease) ([facility]) | | + +--------+ + + + | LIT FLOW HLA I AB ID | Routin | 11/11/2019 | Type 2 diabetes | Results for this | | KE, BLOOD | e | 2:07 PM | mellitus with ESRD | procedure are in the | | | | PDT | (end-stage renal | results section. | | | | | disease) ([facility]) | | + +--------+ + + + | ANTIBODY ELUTION | Routin | 11/11/2019 | Type 2 diabetes | Results for this | | | e | 2:07 PM | mellitus with ESRD | procedure are in the | | | | PDT | (end-stage renal | results section. | | | | | disease) ([facility]) | | + +--------+ + + + | LIT HLA-B LOW RES-KE | Routin | 11/11/2019 | Type 2 diabetes | | | | e | 2:07 PM | mellitus with ESRD | | | | | PDT | (end-stage renal | | | | | | disease) ([facility]) | | + +--------+ + + + | LIT HLA-A LOW RES-KE | Routin | 11/11/2019 | Type 2 diabetes | | | | e | 2:07 PM | mellitus with ESRD | | | | | PDT | (end-stage renal | | | | | | disease) ([facility]) | | + +--------+ + + + | LIT HLA-C LOW RES-KE | Routin | 11/11/2019 | Type 2 diabetes | | | | e | 2:07 PM | mellitus with ESRD | | | | | PDT | (end-stage renal | | | | | | disease) ([facility]) | | + +--------+ + + + | LIT HLA-DQ LOW | Routin | 11/11/2019 | Type 2 diabetes | | | RES-KE | e | 2:07 PM | mellitus with ESRD | | | | | PDT | (end-stage renal | | | | | | disease) ([facility]) | | + +--------+ + + + | LIT RBC GROUP TX KE, | Routin | 11/11/2019 | Type 2 diabetes | | | BLOOD | e | 2:07 PM | mellitus with ESRD | | | | | PDT | (end-stage renal | | | | | | disease) ([facility]) | | + +--------+ + + + | LIT HLA-DR LOW | Routin | 11/11/2019 | Type 2 diabetes | | | RES-KE | e | 2:07 PM | mellitus with ESRD | | | | | PDT | (end-stage renal | | | | | | disease) ([facility]) | | + +--------+ + + + | CMV IGG AND IGM ABS, | Routin | 11/11/2019 | Type 2 diabetes | Results for this | | SERUM | e | 2:07 PM | mellitus with ESRD | procedure are in the | | | | PDT | (end-stage renal | results section. | | | | | disease) ([facility]) | | + +--------+ + + + | INR | Routin | 11/11/2019 | Type 2 diabetes | Results for this | | | e | 2:07 PM | mellitus with ESRD | procedure are in the | | | | PDT | (end-stage renal | results section. | | | | | disease) ([facility]) | | + +--------+ + + + | CBC, WITH | Routin | 11/11/2019 | Type 2 diabetes | Results for this | | DIFFERENTIAL | e | 2:07 PM | mellitus with ESRD | procedure are in the | | | | PDT | (end-stage renal | results section. | | | | | disease) ([facility]) | | + +--------+ + + + | VARICELLA ZOSTER | Routin | 11/11/2019 | Type 2 diabetes | Results for this | | IGG, SERUM | e | 2:07 PM | mellitus with ESRD | procedure are in the | | | | PDT | (end-stage renal | results section. | | | | | disease) ([facility]) | | + +--------+ + + + | MUMPS IGG AB, SERUM | Routin | 11/11/2019 | Type 2 diabetes | Results for this | | | e | 2:07 PM | mellitus with ESRD | procedure are in the | | | | PDT | (end-stage renal | results section. | | | | | disease) ([facility]) | | + +--------+ + + + | PSA TOTAL, | Routin | 11/11/2019 | Type 2 diabetes | Results for this | | SCREENING, SERUM | e | 2:07 PM | mellitus with ESRD | procedure are in the | | | | PDT | (end-stage renal | results section. | | | | | disease) ([facility]) | | + +--------+ + + + | NICOTINE & | Routin | 11/11/2019 | Type 2 diabetes | Results for this | | METABOLITES, SERUM | e | 2:07 PM | mellitus with ESRD | procedure are in the | | | | PDT | (end-stage renal | results section. | | | | | disease) ([facility]) | | + +--------+ + + + | COMPLETE METABOLIC | Routin | 11/11/2019 | Type 2 diabetes | Results for this | | SET | e | 2:07 PM | mellitus with ESRD | procedure are in the | | (NA,K,CL,CO2,BUN,CRE | | PDT | (end-stage renal | results section. | | AT,GLUC,CA,AST,ALT,B | | | disease) ([facility]) | | | BASHIR TOTAL,ALK | | [...] section. | | | | | disease) ([facility]) | | + +--------+ + + + | URINE, MICROSCOPIC | Routin | 11/11/2019 | Type 2 diabetes | Results for this | | EXAM | e | 2:07 PM | mellitus with ESRD | procedure are in the | | | | PDT | (end-stage renal | results section. | | | | | disease) ([facility]) | | + +--------+ + + + | HIV-1,2 AB/HIV-1 P24 | Routin | 11/11/2019 | Type 2 diabetes | Results for this | | AG SCRN | e | 2:07 PM | mellitus with ESRD | procedure are in the | | | | PDT | (end-stage renal | results section. | | | | | disease) ([facility]) | | + +--------+ + + + | RPR SERUM | Routin | 11/11/2019 | Type 2 diabetes | Results for this | | | e | 2:07 PM | mellitus with ESRD | procedure are in the | | | | PDT | (end-stage renal | results section. | | | | | disease) ([facility]) | | + +--------+ + + + | RUBELLA IGG AB, | Routin | 11/11/2019 | Type 2 diabetes | Results for this | | SERUM | e | 2:07 PM | mellitus with ESRD | procedure are in the | | | | PDT | (end-stage renal | results section. | | | | | disease) ([facility]) | | + +--------+ + + + | APTT (ACT. PART. | Routin | 11/11/2019 | Type 2 diabetes | Results for this | | THROMBO TIME) | e | 2:07 PM | mellitus with ESRD | procedure are in the | | | | PDT | (end-stage renal | results section. | | | | | disease) ([facility]) | | + +--------+ + + + | ANTIBODY | Routin | 11/11/2019 | Type 2 diabetes | Results for this | | IDENTIFICATION | e | 2:07 PM | mellitus with ESRD | procedure are in the | | | | PDT | (end-stage renal | results section. | | | | | disease) ([facility]) | | + +--------+ + + + | ANTIBODY SCREEN | Routin | 11/11/2019 | Type 2 diabetes | Results for this | | | e | 2:07 PM | mellitus with ESRD | procedure are in the | | | | PDT | (end-stage renal | results section. | | | | | disease) ([facility]) | | + +--------+ + + + | TYPE AND SCREEN | Routin | 11/11/2019 | Type 2 diabetes | Results for this | | | e | 2:07 PM | mellitus with ESRD | procedure are in the | | | | PDT | (end-stage renal | results section. | | | | | disease) ([facility]) | | + +--------+ + + + | ABO & RH TYPE | Routin | 11/11/2019 | Type 2 diabetes | Results for this | | | e | 2:07 PM | mellitus with ESRD | procedure are in the | | | | PDT | (end-stage renal | results section. | | | | | disease) ([facility]) | | + +--------+ + + + | CULTURE, URINE BACTI | Routin | 11/11/2019 | Type 2 diabetes | Results for this | | | e | 2:07 PM | mellitus with ESRD | procedure are in the | | | | PDT | (end-stage renal | results section. | | | | | disease) ([facility]) | | + +--------+ + + + | PHOSPHORUS, PLASMA | Routin | 11/11/2019 | Type 2 diabetes | Results for this | | | e | 2:07 PM | mellitus with ESRD | procedure are in the | | | | PDT | (end-stage renal | results section. | | | | | disease) ([facility]) | | + +--------+ + + + [...] section. | | | | | disease) ([facility]) | | + +--------+ + + + | BILIRUBIN DIRECT | Routin | 11/11/2019 | Type 2 diabetes | Results for this | | | e | 2:07 PM | mellitus with ESRD | procedure are in the | | | | PDT | (end-stage renal | results section. | | | | | disease) ([facility]) | | + +--------+ + + + | URIC ACID, PLASMA | Routin | 11/11/2019 | Type 2 diabetes | Results for this | | | e | 2:07 PM | mellitus with ESRD | procedure are in the | | | | PDT | (end-stage renal | results section. | | | | | disease) ([facility]) | | + +--------+ + + + | MAGNESIUM, PLASMA | Routin | 11/11/2019 | Type 2 diabetes | Results for this | | | e | 2:07 PM | mellitus with ESRD | procedure are in the | | | | PDT | (end-stage renal | results section. | | | | | disease) ([facility]) | | + +--------+ + + + | LDH TOTAL, PLASMA | Routin | 11/11/2019 | Type 2 diabetes | Results for this | | | e | 2:07 PM | mellitus with ESRD | procedure are in the | | | | PDT | (end-stage renal | results section. | | | | | disease) ([facility]) | | + +--------+ + + + | CHOLESTEROL TOTAL, | Routin | 11/11/2019 | Type 2 diabetes | Results for this | | PLASMA | e | 2:07 PM | mellitus with ESRD | procedure are in the | | | | PDT | (end-stage renal | results section. | | | | | disease) ([facility]) | | + +--------+ + + + [...] | + + + + + | [facility] - | [address] | [place] [address] | | | [place] | | | | + + + [...] | + + + + + | [facility] | [address] | [place] [address] | | | SERVICES, | [address] [...] [facility] | [address] | [place] [address] | | | SERVICES, | [address] [...] [facility] | [address] | [place] [address] | | | SERVICES, | [address] [...] | + + + + + | [facility] | [address] | [place] [address] | | | SERVICES, | [address] [...] [facility] | [address] | [place] [address] | | | SERVICES, | [address] [...] [facility] | [address] | [place] [address] | | | SERVICES, CORE | PARK [...] | + + + + + | [facility] | [address] | [place] [address] | | | SERVICES, CORE | SALVADOR [...] [facility] | [address] | [place] [address] | | | SERVICES, | [address] [...] | + + + + + | [facility] | [address] | [place] [address] | | | SERVICES, | [address] [...] B: | | | | | | Eco Cuizinelab.com/CSPerformed | | | | | | by [employer],[address] | | | | | | [place], [facility],[place] | | | | | | [address] | | | | | | [phone].[employer]. | | | | | | Mio su MD, | | | | | | Lab. Director | | | | + + + + + + | AMPHETAMINE | Negative | Cutoff 30 ng/mL | [email or web address] | | | S, S/P, | | [...] [facility] | [address] | [place], [place] | | | UNIV PTH - INTFC | | [address] | | + + + + + [...] | | | | | determined by [facility] | | | | | | [facility]. See | | | | | | Compliance Statement B: | | | | | | [employer].Kids Movie/CSPerformed | | | | | | by [employer],[address] | | | | | | [place], [facility],[place] | | | | | | [address] | | | | | | [phone].[employer]. | | | | | | [facility] hospital[facility]io MD, | | | | | | Lab. Director | | | | + + + + + + | COTININE | <2 | ng/mL | [facility] | | | | | | [...] [facility] | [address] | [place], [place] | | | UNIV PTH - INTFC | | [address] | | + + + + + [...] | + + + + + | [facility] | [address] | [place] [address] | | | SERVICES, CORE | SALVADOR [...] | [facility] | | considered for monitoring custodial glycemic control in patients with: | LABORATORY [...] | + + + + + | [facility] | [address] | [place] [address] | | | SERVICES, SPECIAL | PARK [...] [facility] | | | NIL | by [employer],[address] | | REG UNIV | | | | [place], [facility],[place] | | PTH - INTFC | | | | [address] | | | | | | [phone].[facility]. | | | | [...] (http://www.cdc.gov/mmwr | | | | | | [email or web address] | | | | | | [email or web address].htm), [...] [facility] | [address] | [place], [place] | | | UNIV PTH - INTFC | | [address] | | + + + + + [...] [place] | | | | | | [address] | | | | | | [phone].aruplab. | | | | | | Mio [...] [facility] | [address] | [place], [place] | | | UNIV PTH - INTFC | | [address] | | + + + + + [...] | | | | | | [place] [address] | | | | | | [phone].aruplab. | | | | | | Mio [...] [facility] | [address] | [place], [place] | | | UNIV PTH - INTFC | | [address] | | + + + + + [...] | TESTING IS NOT INDICATED | | [place] | | | | OR USEFUL TO [...] | + + + + + | [facility] - | [address] | [place] [address] | | | [facility] | | | | + + [...] by | | | | | | [employer],[address] | | | | | | [place], [facility],[place] | | | | | | [address] | | | | | | [phone].[employer]. | | | | | | Mio [...] [facility] | [address] | [place], [place] | | | UNIV PTH - INTFC | | [address] | | + + + + + [...] | + + + + + | [facility] | [address] | [place] [address] | | | SERVICES, CORE | PARK [...] not detected. The performance of the | [facility] | | SOLE SKIVER HIV Combo test, with or without confirmation, was not | LABORATORY | | tested in pediatric patients less than 2 years of age. [facility] | SERVICES, | | guidelines recommend virologic [...] [facility] | [address] | [place] [address] | | | SERVICES, SPECIAL | PARK [...] | + + + + + | [facility] | [address] | [place] [address] | | | SERVICES, CORE | SAVLADOR CALDWELL | | | + + + [...] | + + + + + | [facility] | [address] | [place] [address] | | | SERVICES, CORE | PARK [...] [facility] | [address] | [place] [address] | | | SERVICES, CORE | PARK [...] + | [facility] - | [address] | [place] [address] | | | [place] | | | [...] + | [facility] | [address] | [place] [address] | | | [facility] | | | | + + [...] by | | | | | | [facility],[address] | | | | | | [place] | | | | | | [address] | | | | | | [phone].[employer]. | | | | | | Mio [...] [facility] | [address] | [place], [place] | | | UNIV PTH - INTFC | | [address] | | + + + + + [...] by | | | | | | [employer],[address] | | | | | | Nil[place]felipa [place], [facility],[place] | | | | | | [address] | | | | | | [phone].[employer]. | | | | | | [facility], Mio Jauregui MD, | | | [...] [facility] | [address] | [place], [place] | | | UNIV PTH - INTFC | | [address] | | + + + + + [...] [facility] | [address] | [place] [address] | | | SERVICES, CORE | PARK [...] | [facility] | | | GRAVITY | Lovejoy performed by | | LABORATORY | | [...] | + + + + + | [facility] | [address] | [place] [address] | | | SERVICES, CORE | PARK [...] | + + + + + | [facility] | [address] [facility] | [place] [address] | | | SERVICES, CORE | SALVADOR [...] | + + + + + | [facility] | [address] | [place] [address] | | | SERVICES, CORE | PARK [...] [facility] | [address] | [place] [address] | | | UNA, CORE | SALVADOR [...] [facility] | [address] | [place] [address] | | | SERVICES, CORE | PARK [...] [facility] | [address] | [place] [address] | | | SERVICES, CORE | PARK [...] [facility] | [address] | [place] [address] | | | SERVICES, CORE | PARK [...] | + + + + + | [facility] | [address] | [place] [address] | | | SERVICES, CORE | SALVADOR [...] [facility] | [address] | [place] [address] | | | SERVICES, CORE | SALVADOR [...] | | | LABORATORY | | | JAPANESE | | | SERVICES, | | | [...] | + + + + + | [facility] | [address] [facility] | [place] [address] | | | [facility] | PARK [...] | [facility] - | [address] | [place] [address] | | | IMMUNOGENETICS/TRANS | [address] [...] [facility] - | [address] | [place] [address] | | | IMMUNOGENETICS/TRANS | [address] [...] + + | [facility] - | [address] | [place] [address] | | | IMMUNOGENETICS/TRANS | [address] [...] + + | [facility] - | [address] | [place], [place] | | | IMMUNOGENETICS/TRANS | [address] [...] - | [address] | [place], [place] | | | IMMUNOGENETICS/TRANS | [address] [...] + + | [facility] - | [address] | [place] [address] | | | IMMUNOGENETICS/TRANS | [address] [...] [facility] - | [address] | [place] [address] | | | IMMUNOGENETICS/TRANS | [address] [...] [facility] - | [address] | [place] [address] | | | IMMUNOGENETICS/TRANS | [address] [...] [facility] - | [address] | [place] [address] | | | IMMUNOGENETICS/TRANS | [address] [...]
--- OUTSIDE RECORDS SUMMARY | ~2019-12-30 | XMS | Encounter Summary ---
Demographics + + + | Address | [address] | | | [place] [address] | + + + | Home Phone | | + + + | Preferred Language | Unknown | + + + | Marital Status | Unknown | + + + | Rastafarian Affiliation | [id number] | + + + [...] Team Providers + +------+ + | Care Road Engineer Freight Name | Role | Phone | + +------+ + PCP | Unavailable | + +------+ + Encounter Details +--------+ + + + + | Date | Type | Department | Care Team | Description | +--------+ + + + + | 10/07/ | Hospital | [facility] | Roberto Mtz, | Pain; Staphylococcus | | 2018 - | Encounter | [facility] [address] | [address] | aureus bacteremia; | | | | [address] | [place] [address] | Hypoalbuminemia; | | 10/19/ | | [place], [place] | [phone] | Hyperphosphatemia; | | 2017 | | [address] | | Hyperkalemia; | | | | [phone] | | Anasarca; Swelling | | | | | | of right upper | | | | | | extremity; | | | | | | Cellulitis of right | | | | | | upper extremity; End | | | | | | stage renal failure | | | | | | on dialysis (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 Prescriptions Prior to Admission Medication [...] drainage. DATA Recent Labs Lab 10/18/17 0153 10/17/1731310/16/17 0359 WBC 7.39 7.37 12.27* HGB 8.7* 9.4* 9.8* HCT 26.8* 28.3* 30.7* PLT 176 151 122* NEUTOPHILPCT 64.52 64.33 68.79 MONOPCT 10.81 10.98 11.45 Recent Labs Lab 10/19/17 0740 10/18/17 01510/17/17313 NA 133* 131* 135 K 4.8 4.8 5.0* CL 96* 95* 96* CO2 26 25 30 BUN 29* 35* 24 CREATININE 6.6* 8.3* 6.1* PROT 7.5 6.9 7.3 BILITOT 0.6 0.5 0.6 ALT 19 17 13 AST 27 20 20 Phosphorus: Lab Results Component Value Date PHOS 4.3 10/19/2017 Invalid input(s): LABALBU Recent Labs Lab 10/19/17 0740 10/18/17 01510/17/17 031 MG 2.3 2.3 2.1 No results for input(s): AMYLASE in the last 168 hours. No results for input(s): PHART, PO2ART, HUP4KGS, L8JTFIIU, BEART in the last 168 hours. Recent Labs Lab 10/19/17 0740 10/18/17 0733 10/18/17 0152 10/17/17200210/17/17 0314 APTT -- NO CLOT DETECTED 56* [...] 16 2017 1:33 AM Referring Provider Line: [phone] ID: [id number] Us Upper Extremity Venous Doppler [...] IV vancomycin Follow [place]: [place] [address] [facility] [address] [facility] INFECTIOUS DISEASE [address] [place] [id number] In 2 weeks Medication List START [...] These medications were sent to [facility] [place] - [address] [place] [address] warfarin 4 MG tablet You can get [...] | 14 | | | ol (ADVAIR WIXELA | times daily. | | | [...] Progress Notes Conversion Transaction, Provider Unknown - 10/19/2017 2:55 PM PDTFormatting of this note m ight be different from the original. Case Management by Dashawn Jones RN at 10/19/17 7182 Author: Dashawn Jones RN Service: (none) Author Type: Registered Nurse Filed: 10/21/17 4871 Date of Service: 10/19/171454 Status: Signed Charter And Tour Bus Driver: Dashawn Jones RN (Registered Nurse) Post Discharge Note: Received email from media supervisor on the weekend that patient daniela sted on leaving over the weekend and certain discharge services were not able to be finalize d due to the weekend. The CM on the weekend faxed the Roxo script to [facility] in [place]. I called and spoke wi rodrigo Orozco [...] provider know and they w ill either it compliance manager his coumadin or refer him to [facility] for management . I gave [...] Date of Service: 10/19/17 1434 Status: Signed Charter And Tour Bus Driver: Sharon Chapman RN (Registered Nurse) Sarah Sher called and requesting HD cath dressing [...] Date of Service: 10/19/17 1341 Status: Signed Charter And Tour Bus Driver: Nikky Ball RN (Registered Nurse) Patient discharging [...] Management by Deidre Westfall RN at 10/19/17 4880 Author: Deidre Westfall RN Service: (none) Author Type: Registered Nurse Filed: 10/19/17 1230 Date of Service: 10/19/171138 Status: Addendum Charter And Tour Bus Driver: Deidre Westfall RN (Registered Nurse) Related Notes: Original Note by Deidre Westfall RN (Registered Nurse) filed at 10/19/17 123 5 Pt ready for d/c today 1) pt Needing IV Vanco abx with his HD. Tc to [facility] [phone], per their voi ce mail, they are closed today. Called the local [facility] and they confirmed [place] c enter closed. Faxed IV vanco script to [facility] [phone] so they can f/u on Sat. Tc to Dr Lerner, who doesn't feel it's safe to d/c pt home unlesss we have verificiation Ripita has received script and will administer vanco. [...] Vanco script to take with him to [facility]. Tc to Lucila Rudolph CM, left VM t o f/u with pt on Saturday regarind setting up vanco with his HD. 2) coumadin set up. Pt lives in [place], his PCP will have to make referral to [facility] coumadin clinic. PCP and coumadin clinic closed over wknd. Per previous CM notes, pt's PC P is Dr Lofton with [facility]. Retail Support Specialist from [facility] is Klaudia ([phone]). Tc to [facility], LMTCB to f/u with pt on Saturday/Saturday for INR check. Pt will take his coumadin script to his PCP Mitzi Elsie Yang MD - 10/19/2017 8:47 AM PDT Progress Notes by Elsie Lernre MD at 10/19/17846 Author: Elsie Lerner MD Service: Infectious Disease Author Type: Physician Filed: 10/19/1739 Date of Service: 10/19/17846 Status: Signed Charter And Tour Bus Driver: Elsie Lerner MD (Physician) [facility]: Infectious Disease Progress Note Hospital [...] C) (10/19 713) BP: (86-181)/(40-106) 155/66 (10/19 828) Heart Rate: [69-84] 78 (10/20 831) Resp: [16-18] 18 (10/19 713) SpO2: [93 [...] no organisms with 1+ WBCs 10/07 and blood cultures with no growth PROBLEM LIST [...] Progress Notes by Zonia Clinton RPH at 10/18/171046 Author: Zonia Clinton RPH Service: Pharmacy Author Type: Pharmacist Filed: 10/18/171046 Date of Service: 10/18/171046 Status: Signed Charter And Tour Bus Driver: Zonia Clinton RPH (Pharmacist) Clinical Pharmacy Note: [...] level ordered on 10/21 with am labs. Zonia Clinton Pharm.D. alDouglas givens MD - 10/18/2017 6:54 AM PDT Progress Notes by KRISTEL Ku at 10/18/17653 Author: KRISTEL Ku Service: Hospitalist Author Type: Resident-Y2 Filed: 10/18/172001 Date of Service: 10/18/17653 Status: Attested Addendum Charter And Tour Bus Driver: KRISTEL Ku (Resident-Y3) Related Notes: Original Note by KRISTEL Ku (Resident-Y3) filed at 10/18/17 1 553 Cosigner: Simone Roblero MD at 10/18/172119 Attestation signed by Simone Roblero MD at 10/18/172119 I have seen and examined the patient and agree with residents note. PROGRESS NOTE Pt: Carol Fuller Tariq AGE/SEX: 52 y.o. 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 He was recently admitted to [facility] the end of July 13 [...] Note by Nicky Diaz RPH at 10/17/17 691 Author: Nicky Diaz RPH Service: Pharmacy Author Type: Pharmacist Filed: 10/17/17 841 Date of Service: 10/17/171557 Status: Signed Charter And Tour Bus Driver: Nicky Diaz RPH (Pharmacist) Vancomycin Monitoring: Patient [...] Notes by Dwain Lima MD at 10/17/17 6751 Author: Dwain Lima MD Service: Infectious Disease Author Type: Physician Filed: 10/17/17 7058 Date of Service: 10/17/171154 Status: Signed Charter And Tour Bus Driver: Dwain Lima MD (Physician) [facility]: Infectious Diseases Progress Note Hospital [...] Oral Daily sevelamer 800 mg Oral TID sodium bicarbonate [...] Units Date/Time Blood culture, 1 of 2 [[id number]] Collected: 10/09/17 1710 Specimen: Blood from Blood Updated: 10/15/1745 Specimen Description BLOOD SPECIAL REQUESTS SITE NOT GIVEN CULTURE NO GROWTH 6 DAYS Blood culture, 2 of 2 [[id number]] Collected: 10/09/17 1740 Specimen: Blood from Blood Updated: 10/15/1745 Specimen [...] RPH Service: Pharmacy Author Type: Pharmacist Filed: 10/17/175 Date of Service: 10/17/171044 Status: Signed Charter And Tour Bus Driver: Haider Bhatt RPH (Pharmacist) Vancomycin notes: Dialysis ordered MON - WED - SAT No dose of Vancomycin today. alvor son, Douglas Woodard MD - 10/17/2017 7:08 AM PDT Progress Notes by Douglas Barrow MD-R3 at 10/17/17 0708 Author: Douglas Barrow MD-R3 Service: Hospitalist Author Type: Resident-Y2 Filed: 10/17/171751 Date of Service: 10/17/17707 Status: Attested Charter And Tour Bus Driver: DAMIÁN [email or web address] (Resident-Y3) Cosigner: Omer Minor MD at 1819 Attestation signed by Omer Minor MD at 10/17/171819 Patient seen and examined along with residents. He continues to improve and ambulated aroun d 250 feet yesterday with PT. Chest pain, arm pain and arm swelling are considerably less to day. Patient is back on IV vancomycin that will be continued till 10/06/[address] Cervantes. Saurabh diazely discharge home in 1-2 days. I agree with the progress note of Dr. Barrow. PROGRESS NOTE Pt: Carol Potter AGE/SEX: 52 y.o. 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 He was recently admitted to [facility] the end of July 13 [...] edge of his bed wearing a green [employer] hat looking at his ball oons, he [...] disease and receives dialysis Mondays, Wednesdays, and idays. Receiving dialysis per nephrology- Appreciate nephrology's management [...] Douglas Barrow MD-R2 10/17/2017 5:52 PM onversion Transac tion, Provider Unknown - 10/16/2017 3:10 PM PDTFormatting of this note might be different f rom the original. Case Management by Kalpana Triana RN at 10/16/171509 Author: Kalpana Triana RN Service: (none) Author Type: Registered Nurse Filed: 10/16/171509 Date of Service: 10/16/171509 Status: Signed Charter And Tour Bus Driver: Kalpana Triana RN (Registered Nurse) Discharge planning- Patient still ok to return home with spouse when medically ready. CM to continue to follow clinical course for needs. KALPANA TRIANA RN Case Management [phone] onver quique Transaction, Provider Unknown - 10/16/2017 12:48 PM PDT Nurse Progress Note by Praveena Cordova RN at 10/16/17 1248 Author: Praveena Cordova RN Service: (none) Author Type: Registered Nurse Filed: 10/16/17 1249 Date of Service: 10/16/17 1248 Status: Signed Charter And Tour Bus Driver: Praveena Cordova RN (Registered Nurse) Results for aPtt at 61, no change on heparin gtt at this time per protocol. alvor Douglas sifuentes MD - 10/16/2017 6:46 AM PDT Progress Notes by DAMIÁN KuR3 at 10/16/17 0646 Author: DAMIÁN KuR3 Service: Hospitalist Author Type: Resident-Y2 Filed: 10/16/17 0941 Date of Service: 10/16/17 0646 Status: Attested Charter And Tour Bus Driver: DAMIÁN KuR3 (Resident-Y3) Cosigner: Omer Minor MD [...] of Dr. Barrow. PROGRESS NOTE Pt: Carol Fuller Tariq AGE/SEX: 52 y.o. 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 He was recently admitted to [facility] the end of July 13 for presumed abscess distal to the AV fistula. He returns again with worsening pain and e jay of the right upper extremity. Due to this he has missed dialysis for a week. He did hav e blood cultures drawn at his dialysis center which then grew gram-positive cocci. 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 - [...] Douglas Barrow MD-R2 10/16/2017 9:41 AM onversion Transac tion, Provider Unknown - 10/15/2017 5:13 PM PDTFormatting of this note might be different f rom the original. Pharmacy Note by Brenda Goins RPH at 10/15/171712 Author: Brenda Goins RPH Service: Pharmacy Author Type: Pharmacist Filed: 10/15/171712 Date of Service: 10/15/171712 Status: Signed Charter And Tour Bus Driver: Brenda Goins RPH (Pharmacist) Vanco Monitoring Random vanco level yesterday after HD came back high. Per telephone order from Dr. Meghan uriarte, have decreased dose to be given after each dialysis to vancomycin 500mg. Doses to be g iven after HD only (MWF schedule). Nothing to be given when patient has ultrafiltration. No levels necessary. Brenda Goins, [facility] 10/15/2017 4:34 PM onver quique Transaction, Provider Unknown - 10/15/2017 3:34 PM PDT Progress Notes by Tosha Mclain RD at 10/15/17 153 Author: Tosha Mclain RD Service: (none) Author Type: Registered Dietitian Filed: 10/15/171533 Date of Service: 10/15/171533 Status: Signed Charter And Tour Bus Driver: Tosha Mclain RD (Registered Dietitian) 10/15/171523 Subjective Timepoint Admit Pt c/o Pt triggered for LOS. Pt admitted for AV fistula infection. Pt receiving HD at time of visit. 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 He was recently admitted to [facility] the end of July 13 [...] (37.1 C)] 98.2 F (36.8 C) (10/15 114) BP: (82-134)/(50-62) 134/62 (10/15 1145) Heart Rate: [62-98] 75 (10/15 1145) Resp: [16-20] 20 (10/15 114) SpO2: [95 %-100 %] 95 % (10/15 114) Physical Exam Constitutional: Woke up, slightly groggy, [...] Daily heparin 50 units/mL 17 Units/kg/hr (10/15/17 0719) PRN: acetaminophen OR acetaminophen, albumin human, albuterol, [...] Notes by Dwain Lima MD at 10/15/17 7718 Author: Dwain Lima MD Service: Infectious Disease Author Type: Physician Filed: 10/16/17 6961 Date of Service: 10/15/17 0695 Status: Signed Charter And Tour Bus Driver: Dwain Lima MD (Physician) [facility]: Infectious Diseases Progress Note Hospital [...] Daily heparin 50 units/mL 17 Units/kg/hr (10/15/17 0719) PRN Medications acetaminophen OR acetaminophen, albumin human, [...] Units Date/Time Blood culture, 1 of 2 [[id number]] Collected: 10/09/17 1710 Specimen: Blood from Blood Updated: 10/15/17 0645 Specimen Description BLOOD SPECIAL REQUESTS SITE NOT GIVEN CULTURE NO GROWTH 6 DAYS Blood culture, 2 of 2 [[id number]] Collected: 10/09/17 1740 Specimen: Blood from Blood Updated: 10/15/17 0645 Specimen Description BLOOD SPECIAL REQUESTS SITE NOT GIVEN CULTURE NO GROWTH 6 DAYS Blood Culture Set 1 [[id number]] Collected: 10/07/17 0421 Specimen: Blood from Blood Updated: 10/13/17 0738 Specimen Description BLOOD SPECIAL REQUESTS L HAND CULTURE NO GROWTH 6 DAYS Blood culture, set 2 [[id number]] Collected: 10/07/17 0447 Specimen: Blood from Blood, peripheral draw Updated: 10/13/17 0738 Specimen Description BLOOD, PERIPHERAL DRAW SPECIAL REQUESTS [...] 10/15/2017 7:09 AM PDT Progress Notes by DAMIÁN KuR3 at 10/15/17 0709 Author: KRISTEL Ku Service: Hospitalist Author Type: Resident-Y2 Filed: 10/15/17 1017 Date of Service: 10/15/17 0709 Status: Attested Charter And Tour Bus Driver: DAMIÁN KuR3 (Resident-Y3) Cosigner: Khanh Rangel MD at 10/20/17 1002 Attestation signed by Khanh Rangel MD at 10/20/17 2908 I didn't supervise on this date. Note This is The progress note for 10/14/2013, I forgot to sign it yesterday. PROGRESS NOTE Pt: Carol Potter AGE/SEX: 52 y.o. male ROOM: [facility]1 PCP: ANDRY LOFTON : 1965 PATIENT SUMMARY This is a 52-year-old male with an extensive and complex past medical history including end -stage renal disease secondary to diabetic nephropathy, diabetes mellitus type II, anemia of chronic renal failure, SVC stenosis, and hypertension who presents to the hospital with rig ht upper extremity pain and swelling. He was recently admitted to [facility] the end of July 13 [...] Daily heparin 50 units/mL 15 Units/kg/hr (10/15/17 0245) PRN: acetaminophen OR acetaminophen, albumin human, albuterol, [...] Douglas Barrow MD-R2 10/15/2017 7:10 AM onversion Transac tion, Provider Unknown - 10/14/2017 9:33 PM PDTFormatting of this note might be different f rom the original. Progress Notes by Grecia Rangel RN at 10/14/172132 Author: Grecia Rangel RN Service: (none) Author Type: Registered Nurse Filed: 10/14/172136 Date of Service: 10/14/172132 Status: Signed Charter And Tour Bus Driver: Grecia Rangel RN (Registered Nurse) Random vanco [...] 10/14/172132 Date of Service: 10/14/172132 Status: Signed Charter And Tour Bus Driver: Chela Boyle RPH (Pharmacist) Vancomycin Monitoring Clinician Dosing: Pharmacy Dosing Recent Trough level: 20.39 mcg/mL Drawn: 10/14 Serum creatinine: 9.4 mg/dL (H) 10/14/17 05 Estimated creatinine clearance: 9.4 mL/min (A) Plan [...] 10/14/171120 Date of Service: 10/14/171120 Status: Signed Charter And Tour Bus Driver: Reba Roldan RPH (Pharmacist) Vancomycin Monitoring Day [...] Progress Notes by Reba Roldan RPH at 10/14/17 112 Author: Reba Roldan RPH Service: Pharmacy Author Type: Pharmacist Filed: 10/14/17 1121 Date of Service: 10/14/171120 Status: Signed Charter And Tour Bus Driver: Reba Roldan RPH (Pharmacist) Vancomycin Monitoring Day [...] Management by Paty Bone RN at 10/14/17 1102 Author: Paty Bone RN Service: (none) Author Type: Registered Nurse Filed: 10/14/17 4289 Date of Service: 10/14/171106 Status: Addendum Charter And Tour Bus Driver: aPty Bone RN (Registered Nurse) Related Notes: Original Note by Paty Bone RN (Registered Nurse) filed at 10/14/17 1108 CM attended AM rounds. Pt will d/c on coumadin when medically ready to d/c-lives in [place] on. PCP Dr. Lofton at [facility] is PCP--CM will need to verify that he will follow INR l evels prior to d/c. Pt still on heparin gtt and they will bridge to coumadin. Pt may d/c on IV antbx that will likely be given with dialysis. CM to follow. DC plan home with . Meal voucher provided to by surgical crude unit operator. Paty Bone onver quique Transaction, Provider Unknown - 10/14/2017 7:15 AM PDT Progress Notes by Grecia Rangel RN at 10/14/17 0715 Author: Grecia Rangel RN Service: (none) Author Type: Registered Nurse Filed: 10/14/17 0716 Date of Service: 10/14/17 0715 Status: Signed Charter And Tour Bus Driver: Grecia Rangel RN (Registered Nurse) Notified Dr Barrow @ 0700 12 beats of v-tach, no new orders at this time, pt asymptomati c alvor son, Douglas Woodard MD - 10/14/2017 6:56 AM PDT Progress Notes by KRISTEL Ku at 10/14/17 0656 Author: KRISTEL Ku Service: Hospitalist Author Type: Resident-Y2 Filed: 10/14/17 1351 Date of Service: 10/14/17 0656 Status: Attested Addendum Charter And Tour Bus Driver: KRISTEL Ku (Resident-Y3) Related Notes: Original Note [...] Carol Potter AGE/SEX: 52 y.o. 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 He was recently admitted to [facility] the end of July 13 [...] 71 (10/14 1106) Resp: [16-19] 16 (10/14 1106) SpO2: [95 %-99 %] 98 % (10/14 1106) Weight: [86.2 kg (190 lb)] 86.2 kg [...] today, though this is risky as the [place] has a history of noncompliance. - Continue [...] Douglas Barrow MD-R2 10/14/2017 1:49 PM onversion Transmartina rubin, Provider Unknown - 10/13/2017 10:38 AM PDT Nurse Progress Note by Maude Toussaint RN at 10/13/17 1038 Author: Maude Toussaint RN Service: (none) Author Type: Registered Nurse Filed: 10/13/17 1043 Date of Service: 10/13/17 1038 Status: Signed Charter And Tour Bus Driver: Maude Toussaint RN (Registered Nurse) PTT 64 at 0900 draw. Therapeutic so no change needed. Next draw in am. hriss Cartagena ARNP - 10/13/2017 7:08 AM PDTFormatting of this note might be different from t he original. Progress Notes by DARRELL Damon at 10/13/17 0708 Author: DARRELL Damon Service: Nephrology Author Type: Nurse Practitioner Filed: 10/13/17 1502 Date of Service: 10/13/17 0708 Status: Attested Charter And Tour Bus Driver: DARRELL Damon (Nurse Practitioner) Cosigner: Jayy Christianson MD at 10/20 4560 Attestation signed by Jayy Christianson MD at 10/20/17 621 I have seen & personally examined the pt with Chriss RAMÍREZ; I have discussed the c ase with him. I agree with his findings & documentation. DARRELL Damon started the documentation. Note, exam, recs, plan, discussions were completed & approved by myself. Jayy Christianson MD Patient was seen and examined with attending Meat Hostess: Dr. Christianson. 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 Morphine was stopped today. Epo with HD Hypoalbuminemia, protein supplements encouraged I discussed with the primary team the case at the time of this encounter. DARRELL Damon ouglas Barrow MD - 10/13/2017 7:03 AM PDT Progress Notes by Douglas Barrow MD-R3 at 10/13/17 0703 Author: DAMIÁN KuR3 Service: Hospitalist Author Type: Resident-Y2 Filed: 10/13/17 3459 Date of Service: 10/13/17 0703 Status: Attested Charter And Tour Bus Driver: DAMIÁN KuR3 (Resident-Y3) Cosigner: Khanh Rangel MD [...] right upper extremity. PROGRESS NOTE Pt: Carol Potter AGE/SEX: 52 y.o. 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 He was recently admitted to [facility] the end of July 13 [...] F (37.2 C)] 97.7 F (36.5 C) (10/14 1127) BP: (93-112)/(51-59) 93/55 (10/14 1127) Heart Rate: [74-86] 75 (10/14 1127) Resp: [18] 18 (10/14 1127) SpO2: [94 %-98 %] 95 % (10/14 1127) Weight: [83.8 kg (184 lb 12.8 oz)] 83.8 kg (184 lb 12.8 oz) (10/13 404) Physical Exam Constitutional: He is oriented to [...] Instructions heparin 50 units/mL 15 Units/kg/hr (10/13/17 1243) PRN: acetaminophen OR acetaminophen, albumin human, albuterol, [...] radiology. He had interval improvement over the week d, however today reports that his arm is feeling worse and is more painful, however on exam it appears to be somewhat better if not stable from my exam on Saturday post procedure. We emily l add tramadol for pain management and continue [...] Inpatient Douglas Barrow MD-R2 10/13/2017 1:54 PM Khanh Kiser MD - 10/12/2017 2:55 PM PDT Progress Notes by Khanh Rangel MD at 10/12/17 8978 Author: Khanh Rangel MD Service: Hospitalist Author Type: Physician Filed: 10/13/17 1500 Date of Service: 10/12/17 9827 Status: Signed Charter And Tour Bus Driver: Khanh Rangel MD (Physician) [facility]: Hospitalist Progress Note Hospital Day: [...] Once Immunization sevelamer 800 mg Oral TID sodium bicarbonate [...] 423 laying flat in bed. Shyanne at [facility]. No apparent distress. Conversive and appropriate to [...] bilateral lower extremities. DATA Recent Labs Lab 10/13/17 0307 10/12/17 0535 10/11/17 0528 WBC 6.48 5.87 5.55 RBC 3.17* 3.32* 3.48* HCT 28.0* 29.0* 30.6* MCV 88.2 87.3 87.8 MCH 29.3 28.5 28.9 MCHC 33.2 32.6 32.9 RDW 56.9* 53.8* 54.3* PLT 132* 158 165 MPV 7.4 7.0 7.0 DIFFTYPE AUTOMATED AUTOMATED AUTOMATED Recent Labs Lab 10/13/17 0307 10/12/17 0535 10/11/17 0528 K 4.6 5.0* 4.5 [...] interval not displayed. Recent Labs Lab 10/07/17 0922 10/07/17 0339 CKTOTAL 140 163 TROPONINI -- <0.020 [...] Abbasi MD on Oct 07 2017 4:43AM Linda coley Provider Line: [phone] ID: [id number] Mri Shoulder Right Without Contrast [...] contribute to rotator cuff imp ingement Low rrtbjk-mm-vtmzk ratio renders is a low sensitivity examination. [...] COMPARIS ON STUDIES: CT arm 10/07/2017 PRIMARY MOTORCYCLE BUILDER: Jimenez Garnica MD, PhD, RPVI OPERATIONS: 1. [...] Placement fluoroscopic images 018 and others PRIMARY MOTORCYCLE BUILDER: Jimenez Garnica MD, PhD, RPVI OPERATIONS: 1. [...] sterilely prepped and draped in the usual [facility] ion about the left neck. Freelance Photographer fluoroscopic image was obtained showing relatively unchanged position of the existing internal jugular catheter. An Amplatz wire was placed through the e xisting catheter into the inferior vena cava and the catheter was exchanged for a new 20 cm Mahurkar temporary dialysis catheter. Likely pre-existing catheter, the arterial port would not draw. Therefore, the catheter was removed and a 11 Guinean sheath was placed. Venogram im aging the [...] the innominate confl uence. Follow-up venogram demonstrated samaritan of vigorous flow with some AP attenuation [...] the occlusion. Following i nterventions, there is samaritan of flow through the left innominate vein and superior dawson a cava with some degree of residual AP attenuation at the innominate confluence. The new cat heter tip is at the cavoatrial junction. 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 Replacement of temporary left internal [...] PROCEDURES: 1. Ultrasound-guided access of the left photography intern al jugular vein. 2. Ultrasound and [...] microwire advanced. Over the microw rowdy a 5-Guinean micro- sheath was placed. A single ultrasound [...] cava. The tract was serially dilated to 12.-Guinean. A 20-c m Mahurkar 12-Guinean temporary hemodialysis catheter was placed. The wire [...] COMPARISON ST UDIES: 10/07/2017 and 10/09/2017 PRIMARY MOTORCYCLE BUILDER: Jimenez Garnica MD, PhD, RPVI OPERATIONS: Limited [...] on the lower fistula for percutaneous access. Sk in was locally anesthetized with 1% lidocaine a skin torey was made with 11 blade. Real-time ultrasound guided Lei puncture access was obtained and the microsheath was placed throug h which a right arm fistulogram was performed from the upper arm through the chest. The micr osheath was exchanged over a wire for a 6 Guinean 35 cm sheath which was advanced to the leve l of the subclavian occlusion. Patient was heparinized. The occlusion was crossed with an an gled glide catheter and wire. Next multiple 10 mm angioplasty balloons were used for sequent ial and repeated prolonged dilation of the 14 mm innominate and [address] ents with samaritan of flow. The wire was left in place until the end of both procedures. Attention was then turned to replacement of a left internal jugular temporary dialysis karl ter to a tunneled dialysis catheter to be used until right arm swelling resolved for right a rm fistula use. A site was selected on the upper chest for subcutaneous tunnel creation. Ski n was locally anesthetized with 1% lidocaine [...] support wire and exchanged to an 816 Guinean peel-away sheath. The wire was exchanged t [...] and inn ominate venous stents, there is samaritan of vigorous flow with no residual stenosis. [...] Status: Full Code Khanh Rangel MD 10/13/2017 Kate Ignacio MD - 10/12/2017 10:56 AM PDT Progress Notes by Jimenez Garnica MD PhD at 10/12/17 1056 Author: Jimenez Garnica MD PhD Service: Interventional Radiology Author Type: Physician Filed: 10/12/17 1103 Date of Service: 10/12/17 1056 Status: Signed Charter And Tour Bus Driver: Jimenez Garnica MD PhD (Physician) Interventional Radiology Progress Note Patient Name: Carol Potter Date of : 1965 Consulting Provider: Jimenez Garnica MD, PhD Interval History/Subjective: Carol Potter is a 52 y.o. male. Feeling better this am with resolution of arm pain and decre asing swelling of his right arm s/p right subclavian/innominate recanalization. Per packaging technician, left IJ tunneled dialysis catheter is [...] 07 2017 4:43AM Re vianca Provider Line: [phone] ID: [id number] X-ray Chest 1 View Result Date: 10/07/2017 This is a non-reportable procedure without a radiologist report and is used for image Freezing Pointa eEvent only Mri Shoulder Right Without Contrast Result [...] contribute to rotator cuff imp ingement Low byvbom-bi-soleb ratio renders is a low sensitivity examination. [...] Extremity Venous Right Result Date: 10/05/2017 CAROL POTTER 1965 US UPPER EXTREMITY VENOUS DOPPLER [...] COMPARIS ON STUDIES: CT arm 10/07/2017 PRIMARY MOTORCYCLE BUILDER: Jimenez Garnica MD, PhD, RPVI OPERATIONS: 1. [...] Placement fluoroscopic images 018 and others PRIMARY MOTORCYCLE BUILDER: Jimenez Garnica MD, PhD, RPVI OPERATIONS: 1. [...] sterilely prepped and draped in the usual [facility] ion about the left neck. Freelance Photographer fluoroscopic image was obtained showing relatively unchanged position of the existing internal jugular catheter. An Amplatz wire was placed through the e xisting catheter into the inferior vena cava and the catheter was exchanged for a new 20 cm Mahurkar temporary dialysis catheter. Likely pre-existing catheter, the arterial port would not draw. Therefore, the catheter was removed and a 11 Guinean sheath was placed. Venogram im aging the [...] the innominate confl uence. Follow-up venogram demonstrated samaritan of vigorous flow with some AP attenuation [...] the occlusion. Following i nterventions, there is samaritan of flow through the left innominate vein and superior dawson a cava with some degree of residual AP attenuation at the innominate confluence. The new cat heter tip is at the cavoatrial junction. 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 Replacement of temporary left internal [...] PROCEDURES: 1. Ultrasound-guided access of the left photography intern al jugular vein. 2. Ultrasound and [...] Under real-time ultrasound guidance, using micropuncture techn [employer], the left internal jugular vein was accessed and a microwire advanced. Over the microw rowdy a 5-Guinean micro- sheath was placed. A single ultrasound [...] cava. The tract was serially dilated to 12.-Guinean. A 20-c m Mahurkar 12-Guinean temporary hemodialysis catheter was placed. The wire [...] COMPARISON ST UDIES: 10/07/2017 and 10/09/2017 PRIMARY MOTORCYCLE BUILDER: Jimenez Garnica MD, PhD, RPVI OPERATIONS: Limited [...] exchanged over a wire for a 6 Guinean 35 cm sheath which was advanced to the leve l of the subclavian occlusion. Patient was heparinized. The occlusion was crossed with an an gled glide catheter and wire. Next multiple 10 mm angioplasty balloons were used for sequent ial and repeated prolonged dilation of the 14 mm innominate and [address] ents with samaritan of flow. The wire was left in place until the end of both procedures. Attention was then turned to replacement of a left internal jugular temporary dialysis karl ter to a tunneled dialysis catheter to be used until right arm swelling resolved for right a rm fistula use. A site was selected on the upper chest for subcutaneous tunnel creation. [facility] n was locally anesthetized with 1% [...] support wire and exchanged to an 816 Guinean peel-away sheath. The wire was exchanged t [...] and inn ominate venous stents, there is samaritan of vigorous flow with no residual stenosis. [...] 10/12/17956 Date of Service: 10/12/17956 Status: Signed Charter And Tour Bus Driver: Ambika Hanson RPH (Pharmacist) Patient is current ly having HD. RN was able to obtain a stat Vancomycin level at 0917 ([facility] HD session)=24.1 The level is elevated [...] Notes by Mary Feldman RN at 10/11/17 1607 Author: Mary Feldman RN Service: Nephrology Author Type: Registered Nurse Filed: 10/11/17 1608 Date of Service: 10/11/17 160 Status: Signed Charter And Tour Bus Driver: Mary Feldman RN (Registered Nurse) Called by primary RN d/t new Left HD CVC oozing blood. Dressing removed, biopatch saturated with blood and moderate amount of dried blood on skin. No active bleeding noted. Site clean ed per protocol and dressed with biopatch and tegaderm. Dr. Christianson notified. Mitch Feldman manager housekeeping onver quique Transaction, Provider Unknown - 10/11/2017 2:52 PM PDT Case Management by Kalpana Triana RN at 10/11/17 0604 Author: Kalpana Triana RN Service: (none) Author Type: Registered Nurse Filed: 10/11/17 9422 Date of Service: 10/11/171451 Status: Signed Charter And Tour Bus Driver: Kalpana Triana RN (Registered Nurse) Discharge planning- Patient will most likely discharge back home with spouse when medically ready. His spouse with transport. She has been staying with him in the room and receives on e meal voucher per day. Unknown discharge date at this time. KALPANA TRIANA RN Case Management [phone] onver quique Transaction, Provider Unknown - 10/11/2017 1:45 PM PDT Pharmacy Note by Trinidad Coon RPH at 10/11/17 4644 Author: Trinidad Coon RPH Service: Pharmacy Author Type: Pharmacist Filed: 10/11/17 5369 Date of Service: 10/11/17 1345 Status: Signed Charter And Tour Bus Driver: Trinidad Coon RPH (Pharmacist) Vancomycin monitoring. Pt is due to receive dialysis today, not yet started. Vancomycin has been given 3 out of last 4 days. We will check a random level 4 hours after the end of dialysis today to make sure medicatio n is not accumulating. Trinidad Brown alvor son, Douglas Woodard MD - 10/11/2017 6:58 AM PDT Progress Notes by Douglas Barrow MD-R3 at 10/11/17 0658 Author: DAMIÁN KuR3 Service: Hospitalist Author Type: Resident-Y2 Filed: 10/11/17 8216 Date of Service: 10/11/17657 Status: Attested Charter And Tour Bus Driver: DAMIÁN [email or web address] (Resident-Y3) Cosigner: Khanh Rangel MD [...] Carol Potter AGE/SEX: 52 y.o. male ROOM: [facility]/423-1 PCP: ANDRY LOFTON : 1965 PATIENT SUMMARY This is a 52-year-old male with an extensive and complex past medical history including end -stage renal disease secondary to diabetic nephropathy, diabetes mellitus type II, anemia of chronic renal failure, SVC stenosis, and hypertension who presents to the hospital with rig ht upper extremity pain and swelling. He was recently admitted to [facility] the end of July 13 [...] oz)] 88.1 kg (194 lb 3.6 oz) (10/112) Physical Exam Constitutional: He is oriented to [...] has resolved, will receive dialysis per nephr oldimitris. - Appreciate nephrology's management - AM CMP [...] Inpatient Douglas Barrow MD-R2 10/11/2017 4:16 PM Jose Luis Garg MD - 10/10/2017 7:23 PM PDT Progress Notes by Dwain Lima MD at 10/10/171922 Author: Dwain Lima MD Service: Infectious Disease Author Type: Physician Filed: 10/10/171925 Date of Service: 10/10/171922 Status: Signed Charter And Tour Bus Driver: Dwain Lima MD (Physician) [facility]: Infectious Diseases Progress Note Hospital Day: LOS: 3 days Post-Op Day: * No surgery found * CC: Follow-up of MRSA bacteremia SUBJECTIVE/OVERNIGHT EVENTS Patient continues to report right upper extremity pain, swelling. He reports no clinical improvement. He has been scheduled for an AV fistulogram and possible intervention for his thrombosis to rudolph. Remains afebrile, without leukocytosis. REVIEW OF SYSTEMS [...] Value Units Date/Time Anaerobic Culture W/Gram Stain [[id number]] Collected: 10/07/17 1611 Specimen: Abscess Updated: 10/10/17 0856 Specimen Description ABSCESS GRAM STAIN 1+ GRAM STAIN WBC'S SEEN GRAM STAIN NO ORGANISMS SEEN CULTURE NO GROWTH 3 DAYS Blood culture, 2 of 2 [[id number]] Collected: 10/09/17 1740 Specimen: Blood from Blood Updated: 10/09/171945 Blood culture, 1 of 2 [[id number]] Collected: 10/09/17 1710 Specimen: Blood from Blood Updated: 10/09/171945 Blood Culture Set 1 [[id number]] Collected: 10/07/17 0421 Specimen: Blood from Blood Updated: 10/09/17 0614 Specimen Description BLOOD SPECIAL REQUESTS L HAND CULTURE NO GROWTH 2 DAYS Blood culture, set 2 [[id number]] Collected: 10/07/17 0447 Specimen: Blood from Blood, [...] Note by Haider Bhatt RPH at 10/10/17 0470 Author: Haider Bhatt RPH Service: Pharmacy Author Type: Pharmacist Filed: 10/10/17 1604 Date of Service: 10/10/17 1609 Status: Signed Charter And Tour Bus Driver: Haider Bhtat RPH (Pharmacist) Vancomycin notes: Patient receiving dialysis today. Vancomycin dose sent at approx 1600 to be administered du ring last hour of HD. Cosmo Lang MD - 10/10/2017 1:43 PM PDTFormatting of this note might be different from the or iginal. Progress Notes by Cosmo Soria MD at 10/10/17 1343 Author: Cosmo Soria MD Service: Nephrology Author Type: Physician Filed: 10/10/17 5492 Date of Service: 10/10/17 1348 Status: Signed Charter And Tour Bus Driver: Cosmo Soria MD (Physician) 423/423-1 LOS: 3 days Carol Potter is a 52 y.o. man whose PCP is Dr. ANDRY LOFTON. He is known to have ESRD as per [facility]. He is known to me from multiple [...] ci yesterday when I was called by [facility]. Today Dr. Christianson indicated growth was Staph aur eus. He received vancomycin and ceftazidime on Saturday and was discharged. I personally discuss ed the case telephonically with Dr. Ellison and ED at that time. He was felt to have a working AV fistula and was felt that he would be able to return to [facility] for Saturday for dialysis. He was not clinically uremic, hyperkalemic, acido tic or uremic at that time. He however returned to emergency room at [facility] with worsening of the swell ing. He was transferred back to [facility] He was afebrile and otherwise hemodynamically stable [...] is dialyzed Saturday an d Saturday at [place] dialysis unit using right UE AVF (Dr. [...] he had a complicated st ay at [facility] including development of pericardial effusion s/p attempt [...] Place tunneled CVC once bacteremia has resolved. Timber Watchman evaluation for low K diet. I discussed [...] was completed later after rounds. Dictation software, [employer], was used which may contain error for [...] assume nephrology service as of 8 pm [facility]. Eliseo Mittal PA-C - 10/10/2017 9:24 AM PDT Progress Notes by Eliseo Cat PA-C at 10/10/17923 Author: Eliseo Cat PA-C Service: Interventional Radiology Author Type: Physician A ssistant - Certified Filed: 10/10/17949 Date of Service: 10/10/17923 Status: Addendum Charter And Tour Bus Driver: Eliseo Cat PA-C (Physician Barrel Burner - Certified) Related Notes: Original Note by Eliseo Cat PA-C (Physician Barrel Burner - Certified) fi led at 10/10/1740 Interventional Radiology Progress Note Patient Name: Carol [...] Abbasi MD on Oct 07 2017 4:43AM Linda coley Provider Line: [phone] ID: [id number] X-ray Chest 1 View Result [...] contribute to rotator cuff imp ingement Low lqubpr-xo-icpru ratio renders is a low sensitivity examination. [...] COMPARIS ON STUDIES: CT arm 10/07/2017 PRIMARY MOTORCYCLE BUILDER: Jimenez Garnica MD, PhD, RPVI OPERATIONS: 1. [...] Placement fluoroscopic images 018 and others PRIMARY MOTORCYCLE BUILDER: Jimenez Garnica MD, PhD, RPVI OPERATIONS: 1. [...] sterilely prepped and draped in the usual [facility] ion about the left neck. Freelance Photographer fluoroscopic image was obtained showing relatively unchanged position of the existing internal jugular catheter. An Amplatz wire was placed through the e xisting catheter into the inferior vena cava and the catheter was exchanged for a new 20 cm Mahurkar temporary dialysis catheter. Likely pre-existing catheter, the arterial port would not draw. Therefore, the catheter was removed and a 11 Guinean sheath was placed. Venogram im aging the [...] the innominate confl uence. Follow-up venogram demonstrated samaritan of vigorous flow with some AP attenuation [...] the occlusion. Following i nterventions, there is samaritan of flow through the left innominate vein and superior dawson a cava with some degree of residual AP attenuation at the innominate confluence. The new cat heter tip is at the cavoatrial junction. 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 Replacement of temporary left internal [...] PROCEDURES: 1. Ultrasound-guided access of the left photography intern al jugular vein. 2. Ultrasound and [...] microwire advanced. Over the microw rowdy a 5-Guinean micro- sheath was placed. A single ultrasound [...] cava. The tract was serially dilated to 12.-Guinean. A 20-c m Mahurkar 12-Guinean temporary hemodialysis catheter was placed. The wire [...] 10/10/2017 6:43 AM PDT Progress Notes by DAMIÁN KuR3 at 10/10/17 0643 Author: DAMIÁN KuR3 Service: Hospitalist Author Type: Resident-Y2 Filed: 10/10/17 1236 Date of Service: 10/10/17 0643 Status: Attested Charter And Tour Bus Driver: DAMIÁN KuR3 (Resident-Y3) Cosigner: Khanh Rangel MD at 10/10/17 1506 Attestation signed by Khanh Rangel MD at 10/10/17 1506 Encountered and examined patient in room 423 with caring at bedside. [facility] I agree with Dr. Barrow's [...] Carol Potter AGE/SEX: 52 y.o. male ROOM: [facility]423-1 PCP: ANDRY LOFTON : 1965 PATIENT SUMMARY This is a 52-year-old male with an extensive and complex past medical history including end -stage renal disease secondary to diabetic nephropathy, diabetes mellitus type II, anemia of chronic renal failure, SVC stenosis, and hypertension who presents to the hospital with rig ht upper extremity pain and swelling. He was recently admitted to [facility] the end of July 13 [...] C) (10/10 1128) BP: (91-123)/(51-63) 118/58 (10/10 1128) Heart Rate: [70-78] 76 (10/10 1128) Resp: [18-20] 20 (10/10 1128) SpO2: [96 %-100 %] 97 % (10/10 1128) Weight: [87 kg (191 lb 12.8 oz)-88.3 kg (194 lb 10.7 oz)] 88.3 kg (194 lb 10.7 oz) (10/10 250) Physical Exam Constitutional: He is oriented to [...] Instructions heparin 50 units/mL 15 Units/kg/hr (10/10/17 7402) PRN: acetaminophen OR acetaminophen, albumin human, albuterol, [...] acidosis has resolved, will receive dialysis again tod ay. - Appreciate nephrology's management - AM CMP [...] Inpatient Douglas Barrow MD-R2 10/10/2017 12:36 PM Jose Luis Garg MD - 10/09/2017 5:23 PM PDT Progress Notes by Dwain Lima MD at 10/09/17 1723 Author: Dwain Lima MD Service: Infectious Disease Author Type: Physician Filed: 10/09/17 1731 Date of Service: 10/09/17 172 Status: Signed Charter And Tour Bus Driver: Dwain Lima MD (Physician) [facility]: Infectious Diseases Progress Note Hospital [...] Value Units Date/Time Anaerobic Culture W/Gram Stain [[id number]] Collected: 10/07/17 1611 Specimen: Abscess Updated: 10/09/17 1022 Specimen Description ABSCESS GRAM STAIN 1+ GRAM STAIN WBC'S SEEN GRAM STAIN NO ORGANISMS SEEN CULTURE NO GROWTH 2 DAYS Blood Culture Set 1 [[id number]] Collected: 10/07/17 0421 Specimen: Blood from Blood Updated: 10/09/17 0614 Specimen Description BLOOD SPECIAL REQUESTS L HAND CULTURE NO GROWTH 2 DAYS Blood culture, set 2 [[id number]] Collected: 10/07/17 0447 Specimen: Blood from Blood, peripheral draw Updated: 10/09/1714 Specimen Description BLOOD, PERIPHERAL DRAW SPECIAL REQUESTS LWRIST CULTURE NO GROWTH 2 DAYS MRSA by PCR [[id number]] (Abnormal) Collected: 10/07/17 0650 Specimen: Nasopharyngeal from [...] Dwain Cervantes MD, MPH Infectious Diseases 10/09/2017 Cosmo Lang MD - 10/09/2017 5:00 PM PDTFormatting of this note might be different from the betina dasia. Progress Notes by Cosmo Soria MD at 10/09/17 1700 Author: Cosmo Soria MD Service: Nephrology Author Type: Physician Filed: 10/10/17 1349 Date of Service: 10/09/17 170 Status: Addendum Charter And Tour Bus Driver: Cosmo Soria MD (Physician) Related Notes: Original Note by Cosmo Soria MD (Physician) filed at 10/10/17 0649 [id number] LOS: 2 days Carol Potter is a 52 y.o. man whose PCP is Dr. ANDRY LOFTON. He is known to have ESRD as per [facility]. He is known to me from multiple [...] he would be able to return to [facility] for Saturday for dialysis. He was not clinically uremic, hyperkalemic, acido tic or uremic at that time. He however returned to emergency room at [facility] with worsening of the swell ing. He was transferred back to [facility] He was afebrile and otherwise hemodynamically stable [...] He is dialyzed Saturday an saturday at [place] dialysis unit using right UE AVF (Dr. [...] he had a complicated st ay at [facility] including development of pericardial effusion s/p attempt [...] Place tunneled CVC once bacteremia has resolved. Timber Watchman evaluation for low K diet. Continue vancomycin [...] was completed later after rounds. Dictation software, [employer], was used which may contain error for [...] Note by Yasmin Jordan RPH at 10/09/17 1416 Author: Yasmin Jordan RPH Service: Pharmacy Author Type: Pharmacist Filed: 10/09/17 1416 Date of Service: 10/09/17 141 Status: Signed Charter And Tour Bus Driver: Yasmin Jordan RPH (Pharmacist) Vanco 750mg IVPB sent for admin after HD today Pharmacist; YASMIN JORDAN 10/09/2017 2:16 PM onver quique Transaction, Provider Unknown - 10/09/2017 1:11 PM PDT Case Management by Kalpana Triana RN at 10/09/17 1311 Author: Kalpana Triana RN Service: (none) Author Type: Registered Nurse Filed: 10/09/17 1314 Date of Service: 10/09/17 1311 Status: Signed Charter And Tour Bus Driver: Kalpana Triana RN (Registered Nurse) CM received call from patient's Retail Support Specialist from [facility] ([phone]). She st ated that she is available to help with any discharge needs. KALPANA TRIANA RN Case Management [phone] alvor son, Douglas Woodard MD - 10/09/2017 7:24 AM PDT Progress Notes by DAMIÁN KuR3 at 10/09/17 0724 Author: DAMIÁN KuR3 Service: Hospitalist Author Type: Resident-Y2 Filed: 10/09/17 1652 Date of Service: 10/09/17 0724 Status: Attested Charter And Tour Bus Driver: DAMIÁN KuR3 (Resident-Y3) Cosigner: Khanh Rangel MD at 10/10/17 1503 Attestation signed by Khanh Rangel MD at 10/10/17 1503 Encountered and examined patient in room 423 with caring at bedside. [facility] I agree with Dr. Barrow's [...] and swelling. He was recently admitted to [facility] the end of July 13 [...] not heard back from to be a [facility] regarding the c clive - Infectious disease is on board, appreciate [...] Douglas Barrow MD-R2 10/09/2017 4:52 PM onversion Transac tion, Provider Unknown - 10/09/2017 6:30 AM PDTFormatting of this note might be different f rom the original. Nurse Progress Note by Steve Haile RN at 10/09/17629 Author: Steve Haile RN Service: (none) Author Type: Registered Nurse Filed: 10/09/1733 Date of Service: 10/09/17629 Status: Signed Charter And Tour Bus Driver: Steve Haile RN (Registered Nurse) Patient BG [...] Type: Physician A ssistant - Certified Filed: 10/08/172229 Date of Service: 10/08/172215 Status: Signed Charter And Tour Bus Driver: Eliseo Cat PA-C (Physician Barrel Burner - Certified) Interventional Radiology Progress Note Patient [...] Abbasi MD on Oct 07 2017 4:43AM Linda coley Provider Line: [phone] ID: [id number] X-ray Chest 1 View Result Date: 10/07/2017 This is a non-reportable procedure without a radiologist report and is used for image Freezing Pointa eEvent only Mri Shoulder Right Without Contrast Result [...] contribute to rotator cuff imp ingement Low rttwfu-qu-uufon ratio renders is a low sensitivity examination. [...] COMPARIS ON STUDIES: CT arm 10/07/2017 PRIMARY MOTORCYCLE BUILDER: Jimenez Garnica MD, PhD, VI OPERATIONS: 1. Right arm ultrasound and fluoroscopic [...] PROCEDURES: 1. Ultrasound-guided access of the left photography intern al jugular vein. 2. Ultrasound and [...] microwire advanced. Over the microw rowdy a 5-Guinean micro- sheath was placed. A single ultrasound [...] cava. The tract was serially dilated to 12.-Guinean. A 20-c m Mahurkar 12-Guinean temporary hemodialysis catheter was placed. The wire [...] Notes by Dwain Lima MD at 10/08/17 4583 Author: Dwain Lima MD Service: Infectious Disease Author Type: Physician Filed: 10/09/17 1147 Date of Service: 10/08/171450 Status: Signed Charter And Tour Bus Driver: Dwain Lima MD (Physician) [facility]: Infectious Diseases Progress Note Hospital [...] Value Units Date/Time Anaerobic Culture W/Gram Stain [[id number]] Collected: 10/07/17 1611 Specimen: Abscess Updated: 10/07/17 2232 Specimen Description ABSCESS GRAM STAIN 1+ GRAM STAIN WBC'S SEEN GRAM STAIN NO ORGANISMS SEEN CULTURE PENDING MRSA by PCR [[id number]] (Abnormal) Collected: 10/07/17 0650 Specimen: Nasopharyngeal from Nares(Nose) Updated: 10/07/17 0818 SOURCE NARES(NOSE) MRSA PCR POSITIVE for MRSA by PCR (A) Blood Culture Set 1 [[id number]] Collected: 10/07/17 0421 Specimen: Blood from Blood Updated: 10/07/1756 Blood culture, set 2 [[id number]] Collected: 10/07/17 0447 Specimen: Blood from Blood, [...] bacteremia. Will obtain results from [facility] , they repeat cultures here are [...] Notes by Cosmo Soria MD at 10/08/17 6831 Author: Cosmo Soria MD Service: Nephrology Author Type: Physician Filed: 10/10/17 4478 Date of Service: 10/08/17 1351 Status: Addendum Charter And Tour Bus Driver: Cosmo Soria MD (Physician) Related Notes: Original [...] ci yesterday when I was called by [facility]. Today Dr. Christianson indicated growth was Staph aur eus. He received vancomycin and ceftazidime on Saturday and was discharged. I personally discuss ed the case telephonically with Dr. Ellison and ED at that time. He was felt to have a working AV fistula and was felt that he would be able to return to [facility] for Saturday for dialysis. He was not clinically uremic, hyperkalemic, acido tic or uremic at that time. He however returned to emergency room at [facility] with worsening of the swell ing. He was transferred back to [facility] He was afebrile and otherwise hemodynamically stable [...] is dialyzed Saturday an d Saturday at [place] dialysis unit using right UE AVF (Dr. [...] he had a complicated st ay at [facility] including development of pericardial effusion s/p attempt [...] SVC stenosis tomorrow with Dr. Garnica and [facility] dialysis. Timber Watchman evaluation for low K diet. Continue vancomycin [...] was completed later after rounds. Dictation software, [email or web address], was used which may contain error for [...] 10/08/2017 6:55 AM PDT Progress Notes by DAMIÁN KuR3 at 10/08/17 0655 Author: KRISTEL Ku Service: Hospitalist Author Type: Resident-Y2 Filed: 10/08/17 9996 Date of Service: 10/08/17 0655 Status: Attested Addendum Charter And Tour Bus Driver: KRISTEL Ku (Resident-Y3) Related Notes: Original Note by KRISTEL Ku (Resident-Y3) filed at 10/08/17 1 507 Cosigner: [...] Fuller Tariq AGE/SEX: 52 y.o. male ROOM: [facility]-1 PCP: ANDRY LOFTON : 1965 PATIENT SUMMARY This is a 52-year-old male with an extensive and complex past medical history including end -stage renal disease secondary to diabetic nephropathy, diabetes mellitus type II, anemia of chronic renal failure, SVC stenosis, and hypertension who presents to the hospital with rig ht upper extremity pain and swelling. He was recently admitted to [facility] the end of July 13 [...] (10/08 1330) Heart Rate: [74-90] 76 (10/08 133) Resp: [16-20] 20 (10/08 1329) SpO2: [95 %-100 %] 98 % (10/08 133) Weight: [84.2 kg (185 lb 10 oz)] [...] QTC Calculation (Bezet) 474 ms Calculated P [place] 49 degrees Calculated R [place] 28 degrees Calculated T [place] 80 degrees Diagnosis Normal sinus rhythm Low [...] is been aspirated and cultures are pending. H e is known to grow Staphylococcus aureus [...] be an MRI, however given the p atient's renal insufficiency he is not a candidate for this at the time. *Addendum, attempted to contact [facility] ([phone]) to obtain culture results, however was unable [...] temporary dialysis catheter was placed yesterday by interve ional radiology and the patient has received dialysis [...] Management by Mihir Yo RN at 10/07/17 8418 Author: Mihir Yo RN Service: (none) Author Type: Registered Nurse Filed: 10/07/17 1544 Date of Service: 10/07/17 1527 Status: Signed Charter And Tour Bus Driver: Mihir Yo RN (Registered Nurse) 10/07/17 1526 Discharge Planning Evaluation Admitting Diagnosis AV Fistula Abscess Readmission No Living Arrangements Spouse/significant other Support Systems Spouse/significant other Type of Residence Private residence House type House-1 story Steps to enter 2 Bathrooms on 1st Floor 1-Full Independent with ADL's Yes Independent with Mobility Other (comment) (uses [employer] transportation services in [place]) Home Care Services No Caregiver after Discharge No Mental Status Oriented Prior functional status modified independent Anticipated Discharge Plan Post Acute Care Needs (TBD) Resources Financial concerns No Transportation issues No Prescription Plan Yes [facility] Anticipated Disposition Facility Type Home Medicare Important Message (ELEAZAR) Not applicable Met with pt and discussed discharge planning, Pt is a 52 y.o., male who lives with his wif e in their one level private residence. Pt attends dialysis in [place] and has been known to be noncompliant and to use his fistula for unprescribed drug administration. Pt u ses the Medicaid transportation brokerage for appointments. Patient's PCP is: Andry Lofton MD, [facility] Patient's insurance: Medicare, Medicaid Coverage concerns: no Medication coverage/concerns: no Rx Bedside Delivery: YES Community resources utilized / needed: Dialysis Assistance in transportation: [facility] Identification of any specific education / training: no Barriers to Discharge / Alternative housing needed: no Anticipated DCP: home Shyanne Potter, , Klaudia, [facility] Nurse at [facility], MIHIR YO onver Kay Newton Unknown - 10/07/2017 3:17 PM PDT Case Management by Mihir Yo RN at 10/07/17 9051 Author: Mihir Yo RN Service: (none) Author Type: Registered Nurse Filed: 10/07/17 1523 Date of Service: 10/07/17 1513 Status: Addendum Charter And Tour Bus Driver: Mihir Yo RN (Registered Nurse) Related Notes: Original Note by Mihir Yo RN (Registered Nurse) filed at 0 10/07/17 1517 Attempted to meet with pt for CM [...] Date of Service: 10/07/17 1300 Status: Signed Charter And Tour Bus Driver: rBooklynn Juan RN (Registered Nurse) Returned patient to [...] Date of Service: 10/07/17 1040 Status: Signed Charter And Tour Bus Driver: Brooklynn Juan RN (Registered Nurse) Went to [...] Date of Service: 10/07/17 1017 Status: Signed Charter And Tour Bus Driver: Haider Bhatt RPH (Pharmacist) Renal Dosing Monitoring: [...] Pharmacy Note by Haider Bhatt RPH at 10/07/17950 Author: Haider Bhatt RPH Service: Pharmacy Author Type: Pharmacist Filed: 10/07/17950 Date of Service: 10/07/17950 Status: Signed Charter And Tour Bus Driver: Haider Bhatt RPH (Pharmacist) Vancomycin notes: Right [...] to message pharmacy for dose. onver quique Transaction, Provider Unknown - 10/07/2017 7:38 AM PDT Progress Notes by Rebeca Hadley RN at 10/07/17737 Author: Rebeca Hadley RN Service: (none) Author Type: Registered Nurse Filed: 10/07/1739 Date of Service: 10/07/17737 Status: Signed Charter And Tour Bus Driver: Rebeca Hadley RN (Registered Nurse) Please order and place patient in contact precautions for MRSA. Thank you! Rebeca Infectio n Prevention docume nted in this encounter H&P Notes Roberto Mtz MD - 10/07/2017 5:09 AM PDTFormatting of this note might be different fro m the original. H&P by Roberto Mtz MD at 10/07/17 0502 Author: Roberto Mtz MD Service: Hospitalist Author Type: Physician Filed: 10/07/17 0634 Date of Service: 10/07/17 0509 Status: Signed Charter And Tour Bus Driver: Roberto Mtz MD (Physician) [facility]: Hospitalist Admission History & Physical Pt: Carol Potter AGE/SEX: 52 y.o. male ROOM: PCP: ANDRY LOFTON : 1965 TODAY'S DATE: 10/07/2017 Date of Admission: 10/07/2017 Chief Complaint: Skin Complaint Complicated History of Present Illness: The patient is a 52 y.o. male with significant past medical history of ESRD on HD MWF, HTN, DM, hypthyroidism who presents with Swelling and edema of the right upper extremity. He do es have an AVF here. He was seen on Saturday in the ER for similar complaint. At th at time an us demonstrated no DVT and the patient received a dose of antibiotics and was sen t home to follow up outpatient with his vascular surgeon and to continue abx with dialysis. He went to [facility] today due to increasing swelling in that right upper arm area and luca n. Patient was transferred here today in the early AM. CTA was performed of the right upper extremity which determined Impression 1. 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 2. Extensive right upper extremity and chest wall subcutaneous edema could be a combination of infection and related to venous obstruction. 3. Approximately 4 x 1 x 5 m fluid collection at the anterior aspect of the distal biceps m uscle. If there is clinical concern for abscess/pyomyositis, aspiration could be considered. 4. No other vascular thrombosis seen with patent ectatic bypass graft as seen previously. Findings were discussed with Dr. Puente, vascular surgery by the ER physician. Heparin w as not recommended at the time. Patient states unable to use av site due to pain. States it was attempted on Saturday but fran led. PMHx: Past Medical History Diagnosis Date Abdominal pain, right upper quadrant 04/13/2012 Amphetamine and other psychostimulant dependence, continuous 04/02/2012 Anemia Anemia due to blood loss 04/30/2012 Asthma pt not using inhaler any more, no symptoms AV fistula (HCC) lt arm 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 Chronic obstructive asthma with exacerbation (HCC) 10/27/2013 Chronic systolic heart failure (HCC) 09/10/2016 Diabetes mellitus type I (HCC) Dialysis patient ([facility]) DVT (deep venous thrombosis) ([facility]) x3 GI bleed 04/30/2012 from coumadin Gout Hyperkalemia 11/09/2013 Hyperlipidemia Hyperphosphatemia 05/24/2012 Hypertension Hyponatremia 09/08/2016 Knee pain, right 07/06/2012 MSSA (methicillin susceptible Staphylococcus aureus) infection 04/11/2012 Neuromuscular disorder (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 Rash and nonspecific skin eruption 04/03/2012 SOB (shortness of breath) 10/27/2013 Thyroid disease Walker as ambulation aid PSHx: Past Surgical History Procedure Laterality Date AV FISTULA PLACEMENT Right 02/09/2014 Procedure: AV FISTULA; Surgeon: Oskar Meyer MD; Location: [facility] MAIN OR; Service: Vascula r; Laterality: Right; AV FISTULA PLACEMENT Left 05/06/2012 Procedure: AV FISTULA; Surgeon: Oskar Meyer MD; Location: [facility] MAIN OR; Service: Vascula r; Laterality: Left; Left arm possible right AV FISTULA REPAIR Left 07/11/2012 Procedure: AV FISTULA - GRAFT REPAIR/REVISION; Surgeon: Oskar Meyer MD; Location: [facility] IN OR; Service: Vascular; Laterality: Left; Superficialization of brachiobasilic fistula and right IJ perm cath insertion CATHETER REMOVAL Right 07/07/2012 Procedure: DIALYSIS CATHETER - REMOVAL; Surgeon: Oskar Meyer MD; Location: [facility] BEDSIDE P ROCEDURE; Service: General; Laterality: Right; perm cath COLONOSCOPY WITH EGD N/A 05/01/2012 Procedure: COLONOSCOPY W/ EGD; Surgeon: John Singleton MD; Location: [facility] ENDOSCOPY; Ser vice: Gastroenterology; Laterality: N/A; DIALYSIS FISTULA CREATION Left 07/11/2012 Procedure: DIALYSIS CATHETER - INSERTION; Surgeon: Oskar Meyer MD; Location: [facility] MAIN OR ; Service: Vascular; Laterality: Left; removed dialysis catheter from left neck and place d new on in left chest, attempted in right neck but unable to place DIALYSIS FISTULA CREATION Left 07/07/2012 Procedure: DIALYSIS CATHETER - INSERTION; Surgeon: Oskar Meyer MD; Location: [facility] BEDSIDE PROCEDURE; Service: General; Laterality: Left; temporary dialysis catheter KNEE ARTHROSCOPY Right 07/07/2012 Procedure: KNEE - ARTHROSCOPY; Surgeon: Favio Raza MD; Location: [facility] MAIN OR; Se rvice: Orthopedics; Laterality: Right; After 153 SUPERFICIALIZATION OF AV FISTULA Right 03/30/2014 Procedure: AV FISTULA - SUPERFICIALIZATION; Surgeon: Oskar Meyer MD; Location: [facility] MAIN OR; Service: Vascular; Laterality: Right; UNLISTED PROCEDURE ARTHROSCOPY shoulder rt , ligaments Prior To admission Meds: Prior to Admission medications Medication Sig Start Date End Date Taking? Authorizing Provider amLODIPine (NORVASC) 10 MG tablet Take 10 mg by mouth daily. Yes Historical Provider carvedilol (COREG) 3.125 MG tablet Take 2 tablets by mouth 2 (two) times daily with meals. 07/25/17 Yes Barry Altamirano MD sevelamer (RENVELA) 800 MG tablet take 3 tablets by mouth three times a day WITH MEALS AND 1 TABLET WITH SNACKS 01/24/17 Yes Juan Timmons MD acetaminophen (TYLENOL) 325 MG tablet Take 650 [...] mouth daily. Indications: Primary Gout CLARENCE Earl b complex-vitamin c-folic acid (NEPHRO-THU) 0.8 MG [...] 8 MG disintegrating tablet 10/03/16 Historical Provider sodium bicarbonate 650 MG tablet Take 1,300 mg by mouth 2 (two) times daily. Historica l Provider Medications scheduled: sodium chloride 10 mL Intravenous Q8H Allergies: Allergies Allergen Reactions Azithromycin Rash Unknown Lisinopril Other (See Comments) "makes me sweat and knocked me out" Penicillins Other (See Comments) Unknown- not sure 10/08/12: Patient tolerated Ceftriaxone during previous admissions. Family Hx: Family History Problem Relation Age of Onset Heart disease Mother Heart disease Father Diabetes Father Cancer Father colon cancer Social Hx: Social History Social History Marital status: Spouse name: Shyanne Number of children: N/A Years of education: N/A Occupational History Not on file. Social History Main Topics Smoking status: Former Smoker Packs/day: 1.00 Years: 23.00 Quit date: 04/28/2011 Smokeless tobacco: Never Used Comment: quit 17 yrs ago Alcohol use No Drug use: Yes Types: Marijuana Comment: states he doesnt smoke anymore Sexual activity: Not on file Other Topics Concern Not on file Social History Narrative , LIVES WITH . HAS NO BIOLOGICAL KIDS; 2 STEP KIDS. CURRENTLY UNEMPLOYED, BEFOR E WORKED AT [employer] Quit METHAMPHETAMINES PER PATIENT after t he ARF in mar 2012. FATHER HAS COLON CANCER, HEART DISEASE, MOTHER 15 YEARS AGO. NO FH KIDNEY PROB LEMS. Review of Symptoms: Constitutional: No Fever,No chills, No diaphoresis, No appetite change, No fatigue, No kris ght loss. HENT: No Hearing loss,No ear pain,No nosebleeds,No congestion,No neck pain or stiffness, + dental problem,No tinnitus, No ear discharge Eyes: No Photophobia,No pain, No discharge, No redness, No visual disturbances. Respiratory: No cough,No chest tightness, No shortness of breath, No wheezing. Cardiovascular: No Chest pain,No palpitations, No leg swelling. Gastrointestinal: No Nausea, No vomiting, No abdominal pain, No diarrhea, No constipation, No blood in stool, No abdominal distention Genitourinary: No Dysuria, No frequency, No hematuria, No flank pain, No difficulty urinati ng. Musculoskeletal: No Back pain, + swelling right upper arm Skin: No pallor, No rash Neurological: No Dizziness, No tremors, No seizures, No syncope, No weakness, No light-head edness,No numbness, Hematological: No lymphadenopathy. Does not bruise/bleed easily. Psychiatric/Behavioral: No Suicidal ideas, No hallucinations,No behavioral problems, No con fusion.. Objective: Vital Signs: BP 150/72 | Pulse 84 | Temp 98.3 F (36.8 C) (Oral) | Resp 16 | SpO2 100% No intake/output data recorded. Physical Exam: Constitutional: Oriented to person, place, and time. appears well-developed and well-nouris hed. HEENT: Head: Normocephalic and atraumatic. Nose: Nose normal. Mouth/Throat: Oropharynx is clear and moist. Eyes: Conjunctivae and EOM are normal. Pupils are equal, round, and reactive to light. Neck: Normal range of motion. Neck supple. No JVD present. No tracheal deviation present. N o thyromegaly present. Cardiovascular: Normal rate, regular rhythm. Exam reveals no appreciated gallop or frictio n rub. No murmur heard. Pulmonary/Chest: Effort normal and breath sounds normal. No stridor. No respiratory distres s. no wheezes. no rales. Abdominal: Soft. Bowel sounds are normal. exhibits no distension and no mass. There is no t enderness. There is no rebound and no guarding. Extremities/Musculoskeletal: Edematous right upper extremity with edema going down to the f orearm and wrist. Patient skin is tight in this area. AV fistula has a good thrill. Neurological: Alert and oriented to person, place, and time. No gross cranial nerve defic it. Exhibits normal muscle tone as would be expected for the patient. Skin: Skin is warm and dry. Psychiatric: Has a normal mood and affect for situation. Behavior is normal. Judgment elsie l for patient. Data: Recent Labs Lab 10/07/1733810/05/17 1402 WBC 8.72 7.23 HGB 11.2* 11.1* HCT 33.9* 34.5* PLT 283 245 NEUTOPHILPCT 71.99 72.19 MONOPCT 7.96 7.16 Recent Labs Lab 10/07/17 03310/05/17 1402 NA 130* 133* K 5.7* 4.8 CL 100 97* CO2 14* 19* BUN 81* 71* CREATININE 15* 15* PROT 7.2 7.2 BILITOT 0.6 0.7 ALT 30 30 AST 36 22 Phosphorus: Lab Results Component Value Date PHOS 3.7 07/25/2017 Invalid input(s): LABALBU No results for input(s): MG in the last 168 hours. No results for input(s): AMYLASE in the last 168 hours. No results for input(s): PHART, PO2ART, FQN7BJN, P8PXPACZ, BEART in the last 168 hours. Recent Labs Lab 10/07/17 0339 10/05/17 1402 APTT 33* 24 INR 1.0 1.0 No results for input(s): TSH, T3FREE, FREET4 in the last 168 hours. Recent Labs Lab 10/07/17 0339 10/05/17 1402 CKTOTAL 163 173 TROPONINI <0.020 <0.020 CKMBINDEX 4.7 4.7 Results Procedure Component Value Units Date/Time Blood culture, set 2 [[id number]] Collected: 10/07/17 0447 Specimen: Blood from Blood Updated: 10/07/17 0507 Blood Culture Set 1 [[id number]] Collected: 10/07/17 042 Specimen: Blood from Blood Updated: 10/07/17 043 IMAGING: Cta Upper Extremity Right With Iv Contrast Result Date: 10/07/2017 1. Thrombosed and collapsed SVC and right [...] MD on Oct 07 2017 4:43AM [facility] Provider Line: [phone] ID: [id number] Us Upper Extremity Venous Right Result Date: 10/05/2017 1. No evidence of DVT. Problem List: Principal Problem: 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HCC) Active Problems: Metabolic acidosis Diabetes mellitus with ESRD (end-stage renal disease) HTN (hypertension) ESRD (end stage renal disease) on dialysis Anemia of chronic kidney failure Gout Assessment and Plan: Right upper extremity swelling most likely related to thrombosed and collapsed SVC and righ t subclavian stent and possible combination of infection - Vascular surgery has been consulted - patient did receive ceftazidime and vancomycin in the ED - will keep NPO for now and await vascular surgery evaluation - continue with pain control Metabolic acidosis secondary to ESRD on HD - patient has not had dialysis for approximately 1 week now due to the swelling - will await vascular surgery reccommendations on using the av site vs the need for another temporary dialysis site - discussed with Dr. Soria, nephrology - will continue with PO sodium bicarbonate, renvela Hyperkalemia - moderate hemolysis present - will give sodium bicarb, insulin 5 units iv and d50 HTN - currently stable. Will continue home medications Hypothyroidism - continue with levothyroxine Anemia likely from anemia of chronic disease - hgb is stable - no need for transfusion Hx of Gout - continue with allopurinol Patient's old records and labs were reviewed as available in detail and summarized when nee ded. Active comorbid conditions include: - hypertension - renal disease - obesity - anemia - diabetes - hypothyroidism Code Status: Prior Primary Care Physician: ANDRY Mtz MD 10/07/2017 5:09 AM Dictation software, [employer], may have been used which may contain error for similar sounding words even after review. Personal communication requested for any clarification. Portions of this chart may have been copied from previous notes for continuity of care. documented in this e ncounter Procedure Notes Fela Mayberry MD - 10/18/2017 4:24 PM PDT Procedures by Fela Mayberry MD at 10/18/17 5736 Author: Fela Mayberry MD Service: Nephrology Author Type: Physician Filed: 10/18/17 5262 Date of Service: 10/18/171623 Status: Signed Charter And Tour Bus Driver: Fela Mayberry MD (Physician) The patient says that he feels 'ok' today. he denies any cp or sob. The following portions of the patient's history [...] ON 10/19/2017] warfarin 4 mg Oral Daily BP 150/79 (BP Location: Right leg) | Pulse 73 | Temp 98.1 F (36.7 C) (Oral) | Resp 1 6 | Ht 1.702 m (5' 7.01") | Wt 78.2 kg (172 lb 6.4 oz) | SpO2 94% | BMI 27.00 kg/m General appearance: Pleasant, not in acute distress. Laying in bed. Lungs: Clear to auscultation bilaterally and resonant. There are no wheezes. Heart: Regular rate and rhythm without any rub, gallop. Abdominal exam: Soft and nontender with normal bowel sounds. Extremities: Warm to touch with significant arm edema in arms, more on the left, no leg ed dana. Neurological: Awake, alert, and oriented to time, place, and person. Access: Left IJ tunnled HD cath with good flow. Right arm AVF with good thrill. Lab Results Component Value Date BUN 35 (H) 10/18/2017 CREATININE 8.3 (H) 10/18/2017 EGFR 7 (L) 10/18/2017 NA 131 (L) 10/18/2017 K 4.8 10/18/2017 CL 95 (L) 10/18/2017 CO2 25 10/18/2017 CA 7.4 (L) 10/18/2017 PHOS 5.5 (H) 10/18/2017 MG 2.3 10/18/2017 ALB 2.7 (L) 10/18/2017 HGB 8.7 (L) 10/18/2017 Assessment: Mr. Potter is a 52 y.o. male patient with ESRD on HD. Anemia of ESRD HTN hypoalb hyperphos Recommendations: UF as tolerated DC oral bicarb Next HD per submitted orders MWF, PUF tomorrow Epo with HD as indicated Hypoalbuminemia, protein supplements encouraged I discussed with the primary team the case at the time of this encounter. Fela Mayberry MD FACP hriss Luevano [employer] DATA INTEGRITY CONSULTANT - 10/17/2017 9:02 AM PDT Procedures by DARRELL Damon at 10/17/17901 Author: DARRELL Damon Service: Nephrology Author Type: Nurse Practitioner Filed: 10/17/17 6830 Date of Service: 10/17/17901 Status: Attested [employer] Driver: DARRELL Damon (Nurse Practitioner) Cosigner: Jayy Christianson MD at 10/20 Procedure Orders: 1. PUF (Ultrafiltration) [[id number]] ordered by Jayy Christianson MD at 10/17/17 0800 Attestation signed by Jayy Christianson MD at 10/20/172257 I have seen &personally examined the pt with Chriss RAMÍREZ; I have discussed the case with him. I agree with his findings &documentation. DARRELL Damon started the documentation. Note, exam, recs, plan, discussions were completed & approved by myself. Add: SVC syndrome Upper extremities edema Anasarca Will need more frequent UF. He understands this well. Likely till Saturday. Patient was seen and examined with attending Meat Hostess: Dr. Christianson. The patient says that he feels 'ok' today. he denies any cp or sob. his urine output is no gela. The following portions of the patient's history [...] Admin Instructions warfarin 5 mg Oral Daily BP (!) 157/118 (BP Location: Left leg) | Pulse 82 | Temp 98.2 F (36.8 C) (Oral) | Re sp 16 | Ht 1.702 m (5' 7.01") | Wt 80 kg (176 lb 5.9 oz) | SpO2 99% | BMI 27.62 kg/m General appearance: Pleasant, not in acute distress. Laying in bed. Lungs: Clear to auscultation bilaterally and resonant. There are no wheezes. Heart: Regular rate and rhythm without any rub, gallop. no murmur. Abdominal exam: Soft and nontender with normal bowel sounds. Extremities: Warm to touch with significant arm edema in arms, more on the left, no leg ed dana. There is no cyanosis or clubbing. Neck, face, upper chest edema improving. Neurological: Awake, alert, and oriented to time, place, and person. Normal gross motor po wer. There is no asterixis. Access: Left subclavian tunnled HD cath with good flow. Right arm AVF with good thrill. Lab Results Component Value Date BUN 24 10/17/2017 CREATININE 6.1 (H) 10/17/2017 EGFR 10 (L) 10/17/2017 NA 135 10/17/2017 K 5.0 (H) 10/17/2017 CL 96 (L) 10/17/2017 CO2 30 10/17/2017 CA 8.0 (L) 10/17/2017 PHOS 4.8 10/17/2017 MG 2.1 10/17/2017 ALB 2.9 (L) 10/17/2017 HGB 9.4 (L) 10/17/2017 Assessment: Mr. Potter is a 52 y.o. male patient with ESRD on HD. Anemia of ESRD hypoalb hyperphos Recommendations: UF as tolerated Next HD per submitted orders MWF, PUF today Epo with HD as indicated Hypoalbuminemia, protein supplements encouraged I discussed with the primary team the case at the time of this encounter. DARRELL Damon Humza Tucker ARNP - 10/16/2017 2:55 PM PDTFormatting of this note might be different from the origina l. Procedures by DARRELL Damon at 10/16/17 1428 Author: DARRELL Damon Service: Nephrology Author Type: Nurse Practitioner Filed: 10/16/17 8899 Date of Service: 10/16/17 1067 Status: Attested [employer] Driver: DARRELL Damon (Nurse Practitioner) Cosigner: Jayy Christianson MD at 10/20 7452 Procedure Orders: 1. Hemodialysis [[id number]] ordered by Jayy Christianson MD at 10/16/17 4465 Attestation signed by Jayy Christianson MD at 10/20/17 3847 I have seen &personally examined the pt with Chriss RAMÍREZ; I have discussed the case with him. I agree with his findings &documentation. DARRELL Damon started the documentation. Note, exam, recs, plan, discussions were completed & approved by myself. Add: SVC syndrome Upper extremities edema Anasarca Will need more frequent UF. He understands this well. I reiterated the importance of the low K in the diet. He understood it well. Patient was seen and examined with attending Meat Hostess: Dr. Christianson. The patient says that he feels 'ok' today. he denies any cp or sob. his urine output is no gela. The following portions of the patient's history [...] Admin Instructions warfarin 5 mg Oral Daily BP 126/56 (BP Location: Left leg) | Pulse 74 | Temp 99 F (37.2 C) (Oral) | Resp 20 | Ht 1.702 m (5' 7.01") | Wt 82.3 kg (181 lb 7 oz) | SpO2 93% | BMI 28.41 kg/m General appearance: Pleasant, not in acute distress. Laying in bed today. Lungs: Clear to auscultation bilaterally and resonant. There are no wheezes. Heart: Regular rate and rhythm without any rub, gallop. no murmur. Abdominal exam: Soft and nontender with normal bowel sounds. Extremities: Warm to touch with significant arm edema in arms, more on the left, no leg ed dana. There is no cyanosis or clubbing. Neck, face, upper chest edema improving. Neurological: Awake, alert, and oriented to time, place, and person. Normal gross motor po wer. There is no asterixis. Access: Left subclavian tunnled HD cath with good flow. Right arm AVF with good thrill. Lab Results Component Value Date BUN 27 (H) 10/16/2017 CREATININE 8.0 (H) 10/16/2017 EGFR 8 (L) 10/16/2017 NA 134 (L) 10/16/2017 K 5.5 (H) 10/16/2017 CL 98 (L) 10/16/2017 CO2 26 10/16/2017 CA 7.9 (L) 10/16/2017 PHOS 5.4 (H) 10/16/2017 MG 2.3 10/16/2017 ALB 3.0 (L) 10/16/2017 HGB 9.8 (L) 10/16/2017 Assessment: Mr. Potter is a 52 y.o. male patient with ESRD on HD. Anemia of ESRD hypoalb hyperphos Mild hypoNa Mild hyperK Recommendations: UF as tolerated Next HD per submitted orders MWF, PUF tomorrow Epo with HD as indicated Hypoalbuminemia, protein supplements encouraged I discussed with the primary team the case at the time of this encounter. DARRELL Damon Humza Tucker ARNP - 10/15/2017 7:19 AM PDTFormatting of this note might be different from the origina l. Procedures by DARRELL Damon at 10/15/17718 Author: DARRELL Damon Service: Nephrology Author Type: Nurse Practitioner Filed: 10/15/17 6537 Date of Service: 10/15/17718 Status: Attested [employer] Driver: DARRELL Damon (Nurse Practitioner) Cosigner: Jayy Christianson MD at 10/20 0289 Procedure Orders: 1. PUF (Ultrafiltration) [[id number]] ordered by Jayy Christianson MD at 10/15/17 1351 Attestation signed by Jayy Christianson MD at 10/20/17 8564 I have seen &personally examined the pt with Chriss RAMÍREZ; I have discussed the case with him. I agree with his findings &documentation. DARRELL Damon started the documentation. Note, exam, recs, plan, discussions were completed & approved by myself. Add: SVC syndrome Upper extremities edema, bilateral; R>L Anasarca Will need more frequent UF. He understands this well. Stressed low phos in diet; he promised he will watch that closely. Patient was seen and examined with attending Meat Hostess: Dr. Christianson. The patient says that he feels 'ok' today. he denies any cp or sob. his urine output is no gela. The following portions of the patient's history [...] Admin Instructions warfarin 5 mg Oral Daily BP 122/58 (BP Location: Right upper arm) | Pulse 74 | Temp 98.2 F (36.8 C) (Oral) | Resp 16 | Ht 1.702 m (5' 7.01") | Wt 86.2 kg (190 lb) | SpO2 96% | BMI 29.75 kg/m General appearance: Pleasant, not in acute distress. Laying in bed today. Lungs: Clear to auscultation bilaterally and resonant. There are no wheezes. Heart: Regular rate and rhythm without any rub, gallop. no murmur. Abdominal exam: Soft and nontender with normal bowel sounds. Extremities: Warm to touch with significant arm edema in arms, more on the right, no leg e jay. There is no cyanosis or clubbing. Neck, face, upper chest edema, more on the right si de but improving. Neurological: Awake, alert, and oriented to time, place, and person. Normal gross motor po wer. There is no asterixis. Access: Left subclavian tunnled HD cath with good flow. Right arm AVF with good thrill. Lab Results Component Value Date BUN 35 (H) 10/14/2017 CREATININE 9.4 (H) 10/14/2017 EGFR 6 (L) 10/14/2017 NA 133 (L) 10/14/2017 K 4.8 10/14/2017 CL 95 (L) 10/14/2017 CO2 28 10/14/2017 CA 7.9 (L) 10/14/2017 PHOS 6.3 (H) 10/14/2017 MG 2.4 10/14/2017 ALB 2.8 (L) 10/14/2017 HGB 9.8 (L) 10/15/2017 Assessment: Mr. Potter is a 52 y.o. male patient with ESRD on HD. Anemia of ESRD hypoalb hyperphos Mild hypoNa Recommendations: UF as tolerated Next HD per submitted orders MWF, PUF today Epo with HD as indicated Hypoalbuminemia, protein supplements encouraged I discussed with the primary team the case at the time of this encounter. DARRELL Damon umza Luevano ARNP - 10/14/2017 3:53 PM PDTFormatting of this note might be different from the zbigniewa l. Procedures by DARRELL Damon at 10/14/17 7266 Author: DARRELL Damon Service: Nephrology Author Type: Nurse Practitioner Filed: 10/14/17 1712 Date of Service: 10/14/17 1553 Status: Attested [employer] Driver: DARRELL Damon (Nurse Practitioner) Cosigner: Jayy Christianson MD at 10/20 3887 Procedure Orders: 1. Hemodialysis [[id number]] ordered by Jayy Christianson MD at 10/14/17 0914 Attestation signed by Jayy Christianson MD at 10/20/17 5942 I have seen & personally examined the pt with Chriss RAMÍREZ; I have discussed the c ase with him. I agree with his findings & documentation. DARRELL Damno started the documentation. Note, exam, recs, plan, discussions were completed & approved by myself. Add: SVC syndrome Upper extremities edema Anasarca Will need more frequent UF. He understands this well. Jayy Christianson MD Patient was seen and examined with attending Meat Hostess: Dr. Christainson. The patient says that he feels 'ok' today. he denies any cp or sob. his urine output is no gela. The following portions of the patient's history [...] 750 mg Intravenous See Admin Instructions BP 109/68 (BP Location: Left upper arm) | Pulse 73 | Temp 98.1 F (36.7 C) (Oral) | R cici 17 | Ht 1.702 m (5' 7.01") | Wt 86.2 kg (190 lb) | SpO2 96% | BMI 29.75 kg/m General appearance: Pleasant, not in acute distress. Laying in bed. Lungs: Clear to auscultation bilaterally and resonant. There are no wheezes. Heart: Regular rate and rhythm without any rub, gallop. no murmur. Abdominal exam: Soft and nontender with normal bowel sounds. Extremities: Warm to touch with significant arm edema in arms, more on the right, no leg e jay. There is no cyanosis or clubbing. Neck, face, upper chest edema, more on the right si de but improving. Neurological: Awake, alert, and oriented to time, place, and person. Normal gross motor po wer. There is no asterixis. Access: Left subclavian tunnled HD cath with good flow. Right arm AVF with good thrill. Lab Results Component Value Date BUN 35 (H) 10/14/2017 CREATININE 9.4 (H) 10/14/2017 EGFR 6 (L) 10/14/2017 NA 133 (L) 10/14/2017 K 4.8 10/14/2017 CL 95 (L) 10/14/2017 CO2 28 10/14/2017 CA 7.9 (L) 10/14/2017 PHOS 6.3 (H) 10/14/2017 MG 2.4 10/14/2017 ALB 2.8 (L) 10/14/2017 HGB 9.4 (L) 10/14/2017 Assessment: Mr. Potter is a 52 y.o. male patient with ESRD on HD. Anemia of ESRD hypoalb Recommendations: UF as tolerated Next HD per submitted orders MWF, PUF tomorrow Epo with HD as indicated Hypoalbuminemia, protein supplements encouraged I discussed with the primary team the case at the time of this encounter. DARRELL Damon Humza Tucker ARNP - 10/12/2017 9:04 AM PDTFormatting of this note might be different from the origina l. Procedures by DARRELL Damon at 10/12/17 0904 Author: DARRELL Damon Service: Nephrology Author Type: Nurse Practitioner Filed: 10/12/17 1557 Date of Service: 10/12/17903 Status: Attested [employer] Driver: DARRELL Damon (Nurse Practitioner) Cosigner: Jayy Christianson MD at 10/20 496 Procedure Orders: 1. Hemodialysis [[id number]] ordered by Cosmo Soria MD at 10/10/17 1429 Procedures: 1. HEMODIALYSIS INPATIENT [DIA12 (Custom)] Attestation signed by Jayy Christianson MD at 10/20/17 7416 I have seen & personally examined the pt with Chriss RAMÍREZ; I have discussed the c ase with him. I agree with his findings & documentation. DARRELL Damon started the documentation. Note, exam, recs, plan, discussions were completed & approved by myself. Jayy Christianson MD Patient was seen and examined with attending Meat Hostess: Dr. Christianson. The patient says that he feels 'ok' today. he denies any cp or sob. his urine output is no gela. The following portions of the patient's history [...] 750 mg Intravenous See Admin Instructions BP 110/52 (BP Location: Left upper arm) | Pulse 82 | Temp 97.6 F (36.4 C) (Axillary) | Resp 18 | Ht 1.702 m (5' 7.01") | Wt 88.1 kg (194 lb 3.6 oz) | SpO2 97% | BMI 30.41 k g/m General appearance: Pleasant, not in acute distress. Lungs: Clear to auscultation bilaterally and resonant. There are no wheezes. Heart: Regular rate and rhythm without any rub, gallop. no murmur. Abdominal exam: Soft and nontender with normal bowel sounds. Extremities: Warm to touch with significant arm edema in arms, more on the right, no leg e jay. There is no cyanosis or clubbing. neck, face, upper chest edema, more on the right si de but improving. Neurological: Awake, alert, and oriented to time, place, and person. Normal gross motor po wer. There is no asterixis. Access: Left subclavian tunnled HD cath with good flow. Right arm AVF with good thrill. Lab Results Component Value Date BUN 27 (H) 10/11/2017 CREATININE 7.2 (H) 10/11/2017 EGFR 8 (L) 10/11/2017 NA 135 10/11/2017 K 4.5 10/11/2017 CL 99 10/11/2017 CO2 25 10/11/2017 CA 8.4 (L) 10/11/2017 PHOS 4.8 10/11/2017 MG 2.2 10/11/2017 ALB 2.8 (L) 10/11/2017 HGB 9.5 (L) 10/12/2017 Assessment: Mr. Potter is a 52 y.o. male patient with ESRD on HD. Anemia of ESRD hypoalb Recommendations: Increase UF by 0.5kg Next HD per submitted orders Epo with HD Hypoalbuminemia, protein supplements encouraged I discussed with the primary team the case at the time of this encounter. DARRELL Damon documented in th is encounter Consult Notes Chriss Luevano ARNP - 10/11/2017 12:36 PM PDT Consult* by DARRELL Damon at 10/11/17 1236 Author: DARRELL Damon Service: Nephrology Author Type: Nurse Practitioner Filed: 10/11/17 1622 Date of Service: 10/11/17 1236 Status: Attested [employer] Driver: DARRELL Damon (Nurse Practitioner) Cosigner: Jayy Christianson MD at 10/19 1503 Attestation signed by Jayy Christianson MD at 10/19/17 3612 I have seen & personally examined the pt with Chriss RAMÍREZ; I have discussed the c ase with him. I agree with his findings & documentation. 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 Jayy Christianson MD Patient was seen and examined with attending Meat Hostess: Dr. Christianson. He was seen in the emergency department secondary to swelling to his right arm and having m issed 2 dialysis treatments. The patient says that he feels 'ok' today. he denies any cp, sob. his urine output is note d. The following portions of the patient's history were reviewed and updated as appropriate: l aboratory data, radiologic studies, allergies, current medications, and problem list. Scheduled Meds: allopurinol 100 mg Oral Daily amLODIPine 10 mg Oral Daily budesonide-formoterol 2 puff Inhalation 2 times daily carvedilol 6.25 mg Oral BID heparin (porcine) 5000 unit/0.5mL 10,000 Units Intravenous Once heparin (porcine) 5000 unit/mL 10,000 Units Intracatheter Once levothyroxine 75 mcg Oral QAM AC lidocaine 10 mL Intradermal Once mupirocin 1 g Nasal BID naloxone 0.4 mg Intravenous Once oxyCODONE-acetaminophen 1 tablet Oral Once pneumococcal 23-valent vaccine 0.5 mL Intramuscular Once Immunization sevelamer 800 mg Oral TID sodium bicarbonate buffer 5 mL Infiltration Once sodium bicarbonate 1,300 mg Oral BID sodium chloride 10 mL Intravenous Q8H sodium chloride 10 mL Intravenous Q8H vancomycin 750 mg Intravenous See Admin Instructions Continuous Infusions: heparin 50 units/mL 10 Units/kg/hr (10/11/17 2547) PRN Meds:.acetaminophen OR acetaminophen, albumin human, albuterol, dextrose, dextrose, diphenhydrAMINE, fentaNYL, heparin (porcine) 5000 unit/0.5mL, heparin (porcine) 5000 unit/0 .5mL, heparin flush (PF), HYDROcodone-acetaminophen, midazolam, morphine, ondansetron OR ondansetron, polyethylene glycol, zolpidem As in History of Present Illness & Assessment below. All the pertinent systems were reviewe d and were otherwise negative. BP 113/60 (BP Location: Left upper arm) | Pulse 80 | Temp 98 F (36.7 C) (Oral) | Res p 18 | Ht 1.702 m (5' 7.01") | Wt 88.1 kg (194 lb 3.6 oz) | SpO2 97% | BMI 30.41 kg/m General appearance: Pleasant, not in acute distress. Family at bedside. Neck: Supple without tracheal deviation or jugular [...] no leg edema. There is no cyanosis. Right arm, neck, fac e, upper chest edema, more on the right side. Skin: There are old diffuse scaly rashes, no petechiae, or ecchymosis. Neurological: Awake, alert, and oriented to time, place, and person. Normal gross motor po wer. There is no asterixis. Psychiatric: The patient s behavior is normal. Judgment and thought content are normal. Access : Left subclavian HD cath. Right arm AVF with good thrill. Lab Results Component Value Date BUN 27 (H) 10/11/2017 CREATININE 7.2 (H) 10/11/2017 EGFR 8 (L) 10/11/2017 NA 135 10/11/2017 K 4.5 10/11/2017 CL 99 10/11/2017 CO2 25 10/11/2017 CA 8.4 (L) 10/11/2017 PHOS 4.8 10/11/2017 MG 2.2 10/11/2017 ALB 2.8 (L) 10/11/2017 HGB 10.1 (L) 10/11/2017 Intake/Output Summary (Last 24 hours) at 10/11/17 0701 Last data filed at 10/11/17 0538 Gross per 24 hour Intake 1999.65 ml Output 3050 ml Net -1050.35 ml Assessment: Mr. Potter is a 52 y.o. male patient with ESRD on HD. His right arm AVF is not appropriate for HD. He will have a left IJ temp dialysis cath plac ed. RENAL FUNCTION: ESRD BLOOD PRESSURE: Controlled ELECTROLYTES: Sodium: Mild hyponatremia Potassium: Ok Calcium: Mild hypocalcemia Magnesium: Ok Phosphorus: hyperphos improved Acid/Base: ALBUMIN: hypoalb ANEMIA: Anemia of ESRD URINALYSIS: VOLUME STATUS: Recommendations: 1. Plan HD tomorrow. 2. Strict I/O & daily weights. 3. Dose all of his meds to his current estimated GFR. 4. Continue to avoid all kinds of nephrotoxins. 5. Target euvolumia with a MAP>75 mmHg as possible. 6. Given his tendency for anasarca: Encourage PO intake & close dietitian F/U. Encourage a mbulation safely. Encourage the adequate use of an incentive spirometer. I discussed with the primary team the case at the time of this encounter. DARRELL Damon olden Chase MD - 10/07/2017 4:40 PM PDTFormatting of this note might be different from th e original. Consults by Dwain Lima MD at 10/07/17 1640 Author: Dwain Lima MD Service: Infectious Disease Author Type: Physician Filed: 10/09/17 1139 Date of Service: 10/07/17 1640 Status: Signed [employer] Driver: Dwain Lima MD (Physician) Consult Orders: 1. Inpatient consult to Infectious Diseases [[id number]] ordered by Vikram Colbert MD at 09/22 12/[address] [place] [address] Service: Infectious Diseases Initial Consult Note Date of Admission: 10/07/2017 Requesting Physician: Vikram Colbert MD, General Medicine Reason for Consult Sepsis, severe right upper extremity cellulitis, MRSA infection CHIEF COMPLAINT Right upper extremity pain, swelling, redness HISTORY OF PRESENT ILLNESS The patient is a 52 y.o.-year-old male with significant PMH of end-stage renal disease on h emodialysis through an AV fistula of the right upper extremity seen in consultation for marnie young right upper extremity cellulitis. The patient was recently evaluated in emergency department on 10/05/17, secondary to swelli ng to his right arm and having missed 2 dialysis treatments. He reported symptoms that start ed approximately a week prior to that visit. Patient described symptoms of moderate severity . He reported also that he had been having issues with dialysis nurses accessing his fistula . The patient was evaluated with Doppler ultrasound showed no evidence of deep vein thrombos is. The patient had a creatinine of 15, chronic hyponatremia with sodium of 133, and the pat ient was treated with one dose of intravenous vancomycin and also intravenous ceftazidime an d he was discharged from the emergency department. His temperature during that emergency dep artment visit was 97.7F. Unfortunately, the patient returned to the hospital 2 days later on 10/07/17, complaining o f similar problems. The patient had presented initially to [facility] emergency department and the patient was sent to [facility] ER for evaluation. The patient received vancom ycin and cefepime while at the emergency department at [facility]. This time, the patient was noted to have worsening signs of soft tissue infection in the right upper extremity. Th e patient was evaluated with a CT of the upper extremity that showed evidence of thrombosed and collapsed SVC as well as a right subclavian stent. There was also extensive right upper extremity and chest wall subcutaneous edema and evidence of 4 x 1 x 5 cm fluid collection at the anterior aspect of the distal left biceps muscle. The patient was admitted to the hospi talist service. The patient was given IV antibiotics. Nephrology was consulted. Intervention al radiology was consulted for placement of a temporary dialysis catheter as well as aspirat ion of the fluid collection. Fluid collection was aspirated today and results indicated fluid consistent with old coagul ated blood, possibly related to an old hematoma. Infectious Disease (ID) consult requested for further evaluation and management. PAST MEDICAL HISTORY Past Medical History Diagnosis Date Abdominal pain, right upper quadrant 04/13/2012 Amphetamine and other psychostimulant dependence, continuous 04/02/2012 Anemia Anemia due to blood loss 04/30/2012 Asthma pt not using inhaler any more, no symptoms AV fistula (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) 10/27/2013 Chronic systolic heart failure ([facility]) 09/10/2016 Diabetes mellitus type I ([facility]) Dialysis patient ([facility]) DVT (deep venous thrombosis) ([facility]) x3 GI bleed 04/30/2012 from coumadin Gout Hyperkalemia 11/09/2013 Hyperlipidemia Hyperphosphatemia 05/24/2012 Hypertension Hyponatremia 09/08/2016 Knee pain, right 07/06/2012 MSSA (methicillin susceptible Staphylococcus aureus) infection 04/11/2012 Neuromuscular disorder (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 Thyroid disease Walker as ambulation aid Past Surgical History Procedure Laterality Date AV FISTULA PLACEMENT Right 02/09/2014 Procedure: AV FISTULA; Surgeon: Oskar Meyer MD; Location: [facility] MAIN OR; Service: Vascula r; Laterality: Right; AV FISTULA PLACEMENT Left 05/06/2012 Procedure: AV FISTULA; Surgeon: Oskar Meyer MD; Location: [facility] MAIN OR; Service: Vascula r; Laterality: Left; Left arm possible right AV FISTULA REPAIR Left 07/11/2012 Procedure: AV FISTULA - GRAFT REPAIR/REVISION; Surgeon: Oskar Meyer MD; Location: [facility] IN OR; Service: Vascular; Laterality: Left; Superficialization of brachiobasilic fistula and right IJ perm cath insertion CATHETER REMOVAL Right 07/07/2012 Procedure: DIALYSIS CATHETER - REMOVAL; Surgeon: Oskar Meyer MD; Location: [facility] BEDSIDE P ROCEDURE; Service: General; Laterality: Right; perm cath COLONOSCOPY WITH EGD N/A 05/01/2012 Procedure: COLONOSCOPY W/ EGD; Surgeon: John Singleton MD; Location: [facility] ENDOSCOPY; Ser vice: Gastroenterology; Laterality: N/A; DIALYSIS FISTULA CREATION Left 07/11/2012 Procedure: DIALYSIS CATHETER - INSERTION; Surgeon: Oskar Meyer MD; Location: [facility] MAIN OR ; Service: Vascular; Laterality: Left; removed dialysis catheter from left neck and place d new on in left chest, attempted in right neck but unable to place DIALYSIS FISTULA CREATION Left 07/07/2012 Procedure: DIALYSIS CATHETER - INSERTION; Surgeon: Oskar Meyer MD; Location: [facility] BEDSIDE PROCEDURE; Service: General; Laterality: Left; temporary dialysis catheter KNEE ARTHROSCOPY Right 07/07/2012 Procedure: KNEE - ARTHROSCOPY; Surgeon: Favio Raza MD; Location: [facility] OR; rvice: Orthopedics; Laterality: Right; After 1530 SUPERFICIALIZATION OF AV FISTULA Right 03/30/2014 Procedure: AV FISTULA - SUPERFICIALIZATION; Surgeon: Oskar Meyer MD; Location: [facility] OR; Service: Vascular; Laterality: Right; UNLISTED PROCEDURE ARTHROSCOPY shoulder rt , ligaments Social History Social History Marital status: Spouse name: Shyanne Number of children: N/A Years of education: N/A Occupational History Not on file. Social History Main Topics Smoking status: Former Smoker Packs/day: 1.00 Years: 23.00 Quit date: 04/28/2011 Smokeless tobacco: Never Used Comment: quit 17 yrs ago Alcohol use No Drug use: Yes Types: Marijuana Comment: states he doesnt smoke anymore Sexual activity: Not on file Other Topics Concern Not on file Social History Narrative , LIVES WITH . HAS NO BIOLOGICAL KIDS; 2 STEP KIDS. CURRENTLY UNEMPLOYED, BEFOR E WORKED AT [employer] Quit METHAMPHETAMINES PER PATIENT after t he ARF in mar 2012. FATHER HAS COLON CANCER, HEART DISEASE, MOTHER 15 YEARS AGO. NO FH KIDNEY PROB LEMS. IMMUNIZATIONS: stated as current, but no records available Family History Problem Relation Age of Onset Heart disease Mother Heart disease Father Diabetes Father Cancer Father colon cancer Current Facility-Administered Medications Medication Dose Route Frequency Provider Last Rate Last Dose acetaminophen (TYLENOL) tablet 650 mg 650 mg Oral Q6H PRN Roberto Mtz MD Or acetaminophen (TYLENOL) suppository 650 mg 650 mg Rectal Q6H PRN Roberto Mtz MD albumin human 25 % solution 12.5 g 12.5 g Intravenous Q1H PRN Cosmo Soria MD albuterol (PROVENTIL HFA;VENTOLIN HFA) inhaler 2 puff Inhalation Q4H PRN Roberto Mata i, MD allopurinol (ZYLOPRIM) tablet 100 mg 100 mg Oral Daily Roberto Mtz MD amLODIPine (NORVASC) tablet 10 mg 10 mg Oral Daily Roberto Mtz MD budesonide-formoterol (SYMBICORT) 160-4.5 MCG/ACT inhaler 2 puff 2 puff Inhalation 2 t imes daily Roberto Mtz MD 2 puff at 10/07/17 0835 carvedilol (COREG) tablet 6.25 mg 6.25 mg Oral BID Roberto Mtz MD heparin (porcine) 1000 unit/mL injection 1,000 Units 1,000 Units Intracatheter Once in dialysis Cosmo Soria MD heparin (porcine) 1000 unit/mL injection 1,000 Units 1,000 Units Intracatheter Once in dialysis Cosmo Soria MD heparin (porcine) 1000 unit/mL injection 500 Units 500 Units Intracatheter Q1H PRN Tammie Soria MD heparin (porcine) 5000 unit/0.5mL injection 10,000 Units 10,000 Units Intravenous Once Cosmo Soria MD heparin (porcine) 5000 unit/0.5mL injection 5,000 Units 5,000 Units Subcutaneous 3 jb es per day Roberto Mtz MD Stopped at 10/07/17 0900 heparin flush (PF) 100 unit/mL injection 300 Units 3 mL Intracatheter PRN Jimenez rodriguez MD PhD HYDROcodone-acetaminophen (NORCO) 5-325 MG per tablet 1 tablet 1 tablet Oral Q4H PRN F gabriela Mtz MD 1 tablet at 10/07/17 1607 levothyroxine (SYNTHROID) tablet 75 mcg 75 mcg Oral QAM AC Roberto Mtz MD naloxone (NARCAN) injection 0.4 mg 0.4 mg Intravenous Once Douglas A MD Danial-R2 ondansetron (ZOFRAN) tablet 4 mg 4 mg Oral Q6H PRN Roberto Mtz MD Or ondansetron (ZOFRAN) injection 4 mg 4 mg Intravenous Q6H PRN Roberto Mtz MD polyethylene glycol (GLYCOLAX) packet 17 g 17 g Oral Daily PRN Roberto Mtz MD sevelamer (RENVELA) tablet 800 mg 800 mg Oral TID WC Roberto Mtz MD sodium bicarbonate tablet 1,300 mg 1,300 mg Oral BID Roberto Mtz MD sodium chloride 0.9 % flush 10 mL 10 mL Intravenous Q8H Trevor Bernal DO vancomycin (VANCOCIN) 750 mg/250 mL IVPB 750 mg Intravenous See Admin Instructions Obi Bhatt [facility] zolpidem (AMBIEN) tablet 5 mg 5 mg Oral Nightly PRN Roberto Mtz MD ALLERGIES Allergies Allergen Reactions Azithromycin Rash Unknown Lisinopril Other (See Comments) "makes me sweat and knocked me out" Penicillins Other (See Comments) Unknown- not sure 10/08/12: Patient tolerated Ceftriaxone during previous admissions. REVIEW OF SYSTEMS Negative except for pertinent items noted in HPI. PHYSICAL EXAM Vital Signs: BP (!) 84/54 | Pulse 90 | Temp 97.8 F (36.6 C) (Oral) | Resp 16 | Ht 1.702 m (5' 7. 01") | Wt 85.2 kg (187 lb 13.3 oz) | SpO2 97% | BMI 29.41 kg/m Temp (24hrs), Av.2 F (36.8 C), Min:97.8 F (36.6 C), Max:98.6 F (37 C) General Appearance: Alert, cooperative, no distress and obese Head: Normocephalic, without obvious abnormality, atraumatic. Lips, mucosa, and tongue normal; dentition normal; no thrush present. Eyes: PERRL, conjunctiva/corneas clear, EOM's intact. Throat: Oropharynx without exudates. Neck: Supple, symmetrical, trachea midline, no adenopathy; thyroid: no enlargement/tenderness/nodules; no carotid bruit or JVD Back: Symmetric, no curvature, ROM normal, no CVA tenderness Lungs: Clear to auscultation bilaterally, respirations unlabored Chest Wall: No tenderness or deformity Heart: Regular rate and rhythm, S1 and S2 normal, no murmur noted, no rub or gallop Abdomen: Soft, non-tender, bowel sounds active all four quadrants, no masses, no organomegaly Extremities: right upper extremity massive edema, tense edema, especially around the AV fi stula. There is severe pain to palpation, and inflammatory signs including erythema and incr eased temperature on the way up to the shoulder area. Pulses: 2+ and symmetric all extremities Skin: Skin color, texture, turgor normal, no rashes or lesions Lymph nodes: Cervical, supraclavicular, and axillary nodes normal Neurologic: normal without focal findings, mental status, speech normal, alert and oriented x3, LUCI and reflexes normal and symmetric Venous access: Temporary dialysis catheter right IJ, No signs of infection. REVIEW OF LABS: All labs reviewed. CBC: Lab Results [...] Value Units Date/Time Anaerobic Culture W/Gram Stain [[id number]] Collected: 10/07/17 1611 Specimen: Abscess Updated: 10/07/17 1631 MRSA by PCR [[id number]] (Abnormal) Collected: 10/07/17 0650 Specimen: Nasopharyngeal from Nares(Nose) Updated: 10/07/17 0818 SOURCE NARES(NOSE) MRSA PCR POSITIVE for MRSA by PCR (A) Blood Culture Set 1 [[id number]] Collected: 10/07/17 0421 Specimen: Blood from Blood Updated: 10/07/17 0656 Blood culture, set 2 [[id number]] Collected: 10/07/17 0447 Specimen: Blood from Blood, peripheral draw Updated: 10/07/17 0656 IMAGING RIGHT UPPER EXTREMITY CT ANGIOGRAM WITH CONTRAST EXAM IMPRESSION: 1. 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 2. Extensive right upper extremity and chest wall subcutaneous edema could be a combination of infection and related to venous obstruction. 3. Approximately 4 x 1 x 5 m fluid collection at the anterior aspect of the distal biceps m uscle. If there is clinical concern for abscess/pyomyositis, aspiration could be considered. 4. No other vascular thrombosis seen with patent ectatic bypass graft as seen previously. DATE: 10/07/2017 04:03 AM. PROBLEM LIST Principal Problem: 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HCC) Active Problems: Metabolic acidosis Hypoalbuminemia Diabetes mellitus with ESRD (end-stage renal disease) HTN (hypertension) ESRD (end stage renal disease) on dialysis Anemia of chronic kidney failure Gout Staphylococcus aureus bacteremia Chest pain, unspecified Superior vena caval stenosis ASSESSMENT AND RECOMMENDATIONS The patient is a 52 y.o.-year-old male with the following problems: 1. Severe right upper extremity skin and soft tissue infection 2. Possible AV fistula infection 3. Possible septic thrombophlebitis 4. Fluid collection, possible abscess 5. End-stage renal disease on dialysis 6. MRSA carrier with possible MRSA infection Blood cultures are in progress, aspirated fluid was not purulent, culture is pending. Agree likely a hematoma given to and dialysis access issues and the patient has been having. Also , recent ultrasound 10/05/17 was negative for fluid collections. The patient will continue with broad-spectrum antibiotics for now including vancomycin and cefepime dosed adjusted for renal insufficiency. Patient has new hemodialysis catheter placed. Maintain right upper extremity elevation. Maintain contact precautions for MRSA. We will obtain culture results from outside facilities. Patient will need prolonged IV anti biotic therapy due to possible septic, phlebitis, AV fistula infection and severe right uppe r extremity soft tissue infection. Discussed with Dr. Colbert. Thank you for this consultation. Will follow along. Dwain Cervantes MD, MPH Infectious Diseases 10/07/2017 Eliseo Mittal PA-C - 10/07/2017 10:05 AM PDT Consult* by Eliseo Cat PA-C at 10/07/17 1005 Author: Eliseo Cat PA-C Service: Interventional Radiology Author Type: Physician A ssistant - Certified Filed: 10/07/17 1118 Date of Service: 10/07/17 1005 Status: Attested Addendum [employer] Driver: Eliseo Cat PA-C (Physician Barrel Burner - Certified) Related Notes: Original Note by Eliseo Cat PA-C (Physician Barrel Burner - Certified) fi led at 10/07/17 1058 Cosigner: Jimenez Garnica MD PhD at 10/07/17 1646 Attestation signed by Jimenez Garnica MD PhD at 10/07/17 1646 I saw and evaluated the patient, participated in the management, and agree with the finding s in the above note. We discussed the case and the treatment plan. Right arm firm and indurated, not appropriate for dialysis access. Will plan left IJ temp d ialysis catheter and right arm fluid aspiration. Vascular & Interventional Radiology Consult Note Patient Name: Carol Potter Date of : 1965 Requesting Provider: Dr. Obdulio Ellison Consulting Provider: Eliseo Cat PA-C Reason for Referral and Chief Complaint: Fluid collection in distal biceps; ESRD on hemodialysis History of Present Illness: Carol Potter is a 52 y.o. male. I was asked to see Carol for evaluation of fluid collection in the distal biceps and ESRD on hemodialysis. Patient with PMH of renal hyperparathyroidism, DMII, HTN, hypoalbuminemia, PUD, anemia in E SRD, SVC stenosis, and ESRD on hemodialysis. Patient is followed by Dr. Christianson, Nephrology fo r his ESRD. He has been on a MWF HD schedule. His has a right sided brachiocephalic AV fistula, placed by Dr. Meyer several years ago, that has undergone several fistulagrams with treatment of recurrent cephalic vein occlusive sten oses. He had a RIJV tunneled HD catheter placed by Dr. Garnica in 01/2017 and he recommended fo llow up for SVC angioplasty as stenosis was seen. He has not had IR follow up since. His current episode began several days ago when he presented to [facility] on 10/05/2017 for compl aints of swelling in his right upper extremity. An US was performed showing no evidence of D VT in the upper extremity around his right sided AV fistula. He was discharged home and told to remain on his current antibiotic therapy that was being administered through his HD. He presented again to [facility] this morning, 10/07/2017, for the same complaint of arm swelling and pain. He underwent a CT scan which revealed a small biceps fluid collection and his bloo d cultures are showing Staph aureus thus far. He is being admitted for IV antibiotics. We have been asked by his care team to perform an US guided aspiration of the right biceps fluid collection as well as place a temporary hemodialysis catheter for continuing hemodialy sis. Patient denies any CP, SOB, palpitations. Hospital Problem List: Patient Active Problem List Diagnosis Metabolic acidosis Rash Vitamin D deficiency Secondary renal hyperparathyroidism (HCC) Hypothyroidism Hypoalbuminemia Diabetes mellitus with ESRD (end-stage renal disease) Obesity (BMI 30-39.9) HTN (hypertension) ESRD (end stage renal disease) on dialysis Anemia of chronic kidney failure Gout PUD (peptic ulcer disease) Steroid-induced hyperglycemia Staphylococcus aureus bacteremia Polysubstance abuse Chronic steroid use Hyponatremia S/P pericardiocentesis Chest pain, unspecified Eczema of both upper extremities Psoriasis-like skin disease 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HCC) Anemia in ESRD (end-stage renal disease) ([facility]) Superior vena caval stenosis Review of Systems: Review of Systems Unable to perform ROS: Patient unresponsive All other systems negative. Code Status: Full Code Past Medical History: Past Medical History Diagnosis Date Abdominal pain, right upper quadrant 04/13/2012 Amphetamine and other psychostimulant dependence, continuous 04/02/2012 Anemia Anemia due to blood loss 04/30/2012 Asthma pt not using inhaler any more, no symptoms AV fistula (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) 10/27/2013 Chronic systolic heart failure ([facility]) 09/10/2016 Diabetes mellitus type I ([facility]) Dialysis patient ([facility]) DVT (deep venous thrombosis) ([facility]) x3 GI bleed 04/30/2012 from coumadin Gout Hyperkalemia 11/09/2013 Hyperlipidemia Hyperphosphatemia 05/24/2012 Hypertension Hyponatremia 09/08/2016 Knee pain, right 07/06/2012 MSSA (methicillin susceptible Staphylococcus aureus) infection 04/11/2012 Neuromuscular disorder (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 Thyroid disease Walker as ambulation aid Past Surgical History: Past Surgical History Procedure Laterality Date AV FISTULA PLACEMENT Right 02/09/2014 Procedure: AV FISTULA; Surgeon: Oskar Meyer MD; Location: [facility] MAIN OR; Service: Vascula r; Laterality: Right; AV FISTULA PLACEMENT Left 05/06/2012 Procedure: AV FISTULA; Surgeon: Oskar Meyer MD; Location: [facility] MAIN OR; Service: Vascula r; Laterality: Left; Left arm possible right AV FISTULA REPAIR Left 07/11/2012 Procedure: AV FISTULA - GRAFT REPAIR/REVISION; Surgeon: Oskar Meyer MD; Location: [facility] IN OR; Service: Vascular; Laterality: Left; Superficialization of brachiobasilic fistula and right IJ perm cath insertion CATHETER REMOVAL Right 07/07/2012 Procedure: DIALYSIS CATHETER - REMOVAL; Surgeon: Oskar Meyer MD; Location: [facility] BEDSIDE P ROCEDURE; Service: General; Laterality: Right; perm cath COLONOSCOPY WITH EGD N/A 05/01/2012 Procedure: COLONOSCOPY W/ EGD; Surgeon: John Singleton MD; Location: [facility] ENDOSCOPY; Ser vice: Gastroenterology; Laterality: N/A; DIALYSIS FISTULA CREATION Left 07/11/2012 Procedure: DIALYSIS CATHETER - INSERTION; Surgeon: Oskar Meyer MD; Location: [facility] MAIN OR ; Service: Vascular; Laterality: Left; removed dialysis catheter from left neck and place d new on in left chest, attempted in right neck but unable to place DIALYSIS FISTULA CREATION Left 07/07/2012 Procedure: DIALYSIS CATHETER - INSERTION; Surgeon: Oskar Meyer MD; Location: [facility] BEDSIDE PROCEDURE; Service: General; Laterality: Left; temporary dialysis catheter KNEE ARTHROSCOPY Right 07/07/2012 Procedure: KNEE - ARTHROSCOPY; Surgeon: Favio Raza MD; Location: [facility] MAIN OR; rvice: Orthopedics; Laterality: Right; After 1530 SUPERFICIALIZATION OF AV FISTULA Right 03/30/2014 Procedure: AV FISTULA - SUPERFICIALIZATION; Surgeon: Oskar Meyer MD; Location: [facility] MAIN OR; Service: Vascular; Laterality: Right; UNLISTED PROCEDURE ARTHROSCOPY shoulder rt , ligaments Family History: Family History Problem Relation Age of Onset Heart disease Mother Heart disease Father Diabetes Father Cancer Father colon cancer Social History: Social History Social History Marital status: Spouse name: Shyanne Number of children: N/A Years of education: N/A Social History Main Topics Smoking status: Former Smoker Packs/day: 1.00 Years: 23.00 Quit date: 04/28/2011 Smokeless tobacco: Never Used Comment: quit 17 yrs ago Alcohol use No Drug use: Yes Types: Marijuana Comment: states he doesnt smoke anymore Sexual activity: Not Asked Other Topics Concern None Social History Narrative , LIVES WITH . HAS NO BIOLOGICAL KIDS; 2 STEP KIDS. CURRENTLY UNEMPLOYED, BEFOR E WORKED AT [employer] Quit METHAMPHETAMINES PER PATIENT after t he ARF in mar 2012. FATHER HAS COLON CANCER, HEART DISEASE, MOTHER 15 YEARS AGO. NO FH KIDNEY PROB LEMS. Medications and Allergies: Current Medications: allopurinol 100 mg Oral Daily amLODIPine 10 mg Oral Daily budesonide-formoterol 2 puff Inhalation 2 times daily carvedilol 6.25 mg Oral BID WC heparin (porcine) 5000 unit/0.5mL 5,000 Units Subcutaneous 3 times per day levothyroxine 75 mcg Oral QAM AC sevelamer 800 mg Oral TID WC sodium bicarbonate 1,300 mg Oral BID sodium chloride 10 mL Intravenous Q8H vancomycin 750 mg Intravenous See Admin Instructions Prescriptions Prior to Admission Medication Sig Dispense [...] (two) times daily. 017 at Unknown time @ENCMED@ Allergies: Allergies Allergen Reactions Azithromycin Rash Unknown Lisinopril Other (See Comments) "makes me sweat and knocked me out" Penicillins Other (See Comments) Unknown- not sure 10/08/12: Patient tolerated Ceftriaxone during previous admissions. Labs: 3 Day Labs: Recent Labs Lab 10/07/17 0339 10/05/17 1402 WBC 8.72 7.23 HGB 11.2* 11.1* HCT 33.9* 34.5* PLT 283 245 NA 130* 133* K 5.7* 4.8 CL 100 97* CO2 14* 19* BUN 81* 71* CREATININE 15* 15* PROT 7.2 7.2 BILITOT 0.6 0.7 INR 1.0 1.0 Imaging/Procedures: Pertinent Studies and Results Imaging Data: Cta Upper Extremity Right With Iv Contrast [...] Abbasi MD on Oct 07 2017 4:43AM [facility] Provider Line: [phone] ID: [id number] X-ray Chest 1 View Result Date: 10/07/2017 This is a non-reportable procedure without a radiologist report and is used for image Freezing Pointa eEvent only Us Upper Extremity Venous Right Result Date: 10/05/2017 CAROL POTTER 1965 US UPPER EXTREMITY VENOUS DOPPLER [...] tissue hardness. 1. No evidence of DVT. Physical Examination: Vitals: 10/07/17 0755 BP: 143/67 Pulse: 81 Resp: 18 Temp: 98.6 F (37 C) SpO2: 100% Physical Exam Constitutional: No distress. HENT: Head: Normocephalic and atraumatic. Neck: Normal range of motion. Neck supple. No JVD present. No tracheal deviation present. N o thyromegaly present. Cardiovascular: Normal rate. Exam reveals no gallop and no friction rub. No murmur heard. Pulmonary/Chest: Effort normal. Abdominal: Soft. Musculoskeletal: He exhibits no edema. Skin: He is not diaphoretic. No pallor. Plan for Sedation: IV Conscious Sedation with Fentanyl and Versed. Moderate Sedation Presedation Assessment completed. The patient was reassessed immediately prior to sedation with no significant clinical cuadra es in the exam, including heart and lungs, since the completion of H&P ASA Classification: ASA 3: Patient with a severe systemic disease Mallampati Classification: II: Visibility of hard and soft palate, upper portion of tonsil s and uvula Consent: Risks, alternatives, and benefits of the procedure were discussed with Dr. Colbert, [facility] hospitalist. Questions were answered. Signed and verbal consent were given as witnessed by staff. Pre-Procedure Diagnosis: Bacteremia; Right arm abscess adjacent to AV fistula Procedure to be performed: US guided aspiration/drainage of right arm fluid colleciton Placement of temporary hemodialysis catheter Moderate sedation Assessment and Plan: 52 y/o male with bacteremia, right upper arm abscess, with ESRD on HD presents for aspirati on/drainage and temporary hemodialysis catheter placement. Dr. Colbert consented for procedure s. PARQ held, all questions answered. Patient's physician agrees to proceed with procedure. Will proceed with planned procedures in IR lab. Eliseo Cat PA-C Interventional Radiology Cosmo Lang MD - 10/07/2017 8:43 AM PDT Consult* by Cosmo Soria MD at 10/07/17 0843 Author: Cosmo Soria MD Service: Nephrology Author Type: Physician Filed: 10/10/17 1349 Date of Service: 10/07/17 0896 Status: Addendum [employer] Driver: Cosmo Soria MD (Physician) Related Notes: Original Note by Cosmo Soria MD (Physician) filed at 10/07/17 0958 [phone] LOS: 0 days Carol Potter is a 52 y.o. [...] he would be able to return to [facility] for Saturday for dialysis. He was not clinically uremic, hyperkalemic, acido tic or uremic at that time. He however returned to emergency room at [facility] with worsening of the swell ing. He was transferred back to [facility] He was afebrile and otherwise hemodynamically stable [...] with Dr. Jose Alfredo Ellison regarding same. PMH, PSH, Social history, medications, allergies, labs and imaging reviewed as appropriate. Previous history summarized as above. Prior lab data and imaging reviewed. Old records and labs were reviewed and summarized as above. Significant medical/surgical history: ESRD secondary to Biopsy-proven Diabetic nephropathy. He is dialyzed Saturday an saturday at [place] dialysis unit using right UE AVF (Dr. Meyer). He used to have left upper extremity brachio cephalic fistula which clotted off 10/2013. Right upper extremity brachioc ephalic fistula by Dr. Myeer 02/04 DM2 Secondary hyperparathyroidism Anemia of chronic renal failure Endocarditis HFPEF with Echo 09/13/2016 showing EF between 55 - 60 %. SVC stenosis s/p successful recanalization with angioplasty and provisional stent placem ent of subacute axillary and chronic right brachiocephalic, subclavian venous occlusions as described. 09/26/2016 Hemopericardium treated with pericardial drain. 09/07/16-09/15/[address] ay at [facility] [place] including development of pericardial effusion s/p attempt [...] distress from swollen/painful right arm. No asterixis. HEENT: Thick neck. No JVD, non icteric sclera. Cardiovascular: S1soft. No friction rub. No S3. No murmur. LUNGS: Effort fair. Scattered rales at bases. Abdominal: Soft. No distension and no mass. There is no rebound tenderness and no guarding. EXT: B/L LE with chronic venous changes. distal lower extremity pulses not palpable Neurological: Drowsy but easily aroused. No asterixis. Normal sensorium. Speech fluent. Gai t not tested. Right arm held partially flexed with pain/swelling. Skin: Skin is warm and dry. Chronic skin thickening right AVF. Hemodialysis access: Left upper extremity brachiocephalic fistula, clotted Right UE brachiocephalic AVF with bruit but wit marked swelling/pain on movement. Blister noted on arm. Vital Signs: BP 143/67 (BP Location: Left upper arm) | Pulse 81 | Temp 98.6 F (37 C) (Oral) | Res p 18 | Ht 1.702 m (5' 7.01") | Wt 84.9 kg (187 lb 3.2 oz) | SpO2 100% | BMI 29.31 kg/m Data evaluation: Lab Results Component Value Date BUN 81 (H) 10/07/2017 CREATININE 15 (H) 10/07/2017 EGFR 4 (L) 10/07/2017 NA 130 (L) 10/07/2017 K 5.7 (H) 10/07/2017 CL 100 10/07/2017 CO2 14 (LL) 10/07/2017 CA 7.4 (L) 10/07/2017 PHOS 3.7 07/25/2017 MG 2.4 07/24/2017 ALB 2.8 (L) 10/07/2017 HGB 11.2 (L) 10/07/2017 WBC 8.72 10/07/2017 Lab Results Component Value Date HGB 11.2 (L) 10/07/2017 HGB 11.1 (L) 10/05/2017 HGB 13.1 (L) 07/25/2017 FERRITIN 933 (H) 09/10/2012 FERRITIN 245.0 04/28/2012 FERRITIN 139 04/02/2012 LABIRON 35 09/10/2012 LABIRON 20 04/28/2012 LABIRON 38 04/02/2012 Lab Results Component Value Date K 5.7 (H) 10/07/2017 K 4.8 10/05/2017 K 3.9 07/25/2017 . Lab Results Component Value Date NA 130 (L) 10/07/2017 NA 133 (L) 10/05/2017 NA 136 07/25/2017 Lab Results Component Value Date CO2 14 (LL) 10/07/2017 CO2 19 (L) 10/05/2017 CO2 29 07/25/2017 Lab Results Component Value Date ANIONGAP 21 (H) 10/07/2017 Lab Results Component Value Date ALB 2.8 (L) 10/07/2017 ALB 3.2 (L) 10/05/2017 ALB 3.2 (L) 07/25/2017 Lab Results Component Value Date CA 7.4 (L) 10/07/2017 CA 7.5 (L) 10/05/2017 CA 6.9 (L) 07/25/2017 CA 6.1 (L) 04/02/2012 Lab Results Component Value Date PHOS 3.7 07/25/2017 PHOS 5.4 (H) 07/24/2017 PHOS 9.3 (HH) 07/23/2017 Lab Results Component Value Date MG 2.4 07/24/2017 MG 3.1 (H) 07/23/2017 MG 3.1 (H) 02/16/2017 Lab Results Component Value Date PTHINTACT 255 (H) 04/02/2012 Lab Results Component Value Date URICACID 8.2 04/02/2012 Lab Results Component Value Date WBC 8.72 10/07/2017 WBC 7.23 10/05/2017 WBC 5.65 07/25/2017 Lab Results Component Value Date APTT 33 (H) 10/07/2017 Nm Myocardial Perfusion Spect (stress And Rest) 10/09/2016 showed no evidence of ischemia. Echo 10/09/2016 showed EF between 60 - 65 %. Assessment and Recommendations: 1. ESRD on HD 2. Gram-positive cocci bacteremia, possisvbly from pyomyositis/cellutis 3. Superior vena cava stenosis 4. Hyperkalemia 5. Increased non-gap metabolic acidosis 6. Anemia of chronic renal failure He has recurrent Staph bacteremia (? Abscess in close proximity to AVF) but also has signif icant central venous stenosis. Concern also is with infected biceps possibly pyomyositis. It is unsafe to use AV fistula given concern with such infectious etiologies. He however needs to get dialysis today given hyperkalemia, acidosis and having not been ratna lyzed since last Saturday. BP is Ok. He is clinically euvolemic. Anemia is mild. Plan of care discussed with /Dr. Ellison. Dr. Garnica will plan on aspiration of muscle/abscess and consider placement of dialysis ca theter (temporary Catheter given bacteremia) when we plan to dialyze today. Timber Watchman evaluation for low K diet. Continue vancomycin [...] Plan of care was discussed with Dr. Ellison/Dr. Garnica. COSMO SORIA MD 10/07/2017 Portions of my previous notes have been carried over for continuity of care. He was seen earlier in the day and charting was completed later after rounds. Dictation software, [employer], was used which may contain error for similar sounding words. Pe rsonal communication is requested for any clarification. Prognosis guarded in view of multiple comorbid illnesses and ESRD allopurinol 100 mg Oral Daily amLODIPine 10 mg Oral Daily budesonide-formoterol 2 puff Inhalation 2 times daily calcium gluconate 1 g Intravenous Once carvedilol 6.25 mg Oral BID WC dextrose 50 mL Intravenous Once heparin (porcine) 5000 unit/0.5mL 5,000 Units Subcutaneous 3 times per day insulin regular 5 Units Intravenous Once levothyroxine 75 mcg Oral QAM AC sevelamer 800 mg Oral TID WC sodium bicarbonate 25 mEq Intravenous Once sodium bicarbonate 1,300 mg Oral BID sodium chloride 10 mL Intravenous Q8H Obdulio Tuttle MD - 10/07/2017 7:04 AM PDT Consults by Obdulio Ellison MD at 10/07/17703 Author: Obdulio Ellison MD Service: Vascular Surgery Author Type: Physician Filed: 10/07/1721 Date of Service: 10/07/17703 Status: Signed [employer] Tour Bus Driver: Obdulio Ellison MD (Physician) Consult Orders: 1. Consult to Vascular Surgery [[id number]] ordered by Roberto Mtz MD at 10/07/17 0506 [facility]: Vascular Surgery Initial Consult Note Date of Admission: 10/07/2017 Date of consultation: 10/07/2017 Reason for Consultation: Right arm pain/swelling near AV fistula Requesting Physician: Dr. Mtz, , Hospitalist Primary Care Physician: ANDRY LOFTON History Obtained From: patient, chart review Code Status: Full Code CHIEF COMPLAINT: Right arm pain/swelling, worsening after treatment for cellulitis HISTORY OF PRESENT ILLNESS The patient is a 52 y.o. male with significant past medical history of ESRD on dialysis th rough a right upper arm brachio-basilic AVF who presented to the ER on 10/05 with worsening a rm pain. I saw him at that time and noted a functioning fistula, but erythema/induration of the skin concerning for a cellulitis. He was treated with vanc/cefepime and discharged with plans to continue those abx with his dialysis sessions. Over the course of the day on 10/06 h is right arm pain continued to worsen, and he presented to an outside ER and was subsequentl y transferred to [facility]. This morning he continues to complain of pain primarily over his biceps with movement of th e arm. The arm continues to be swollen. He describes the pain as sharp and burning, moderate to severe. It is worsened by straightening the arm and relieved somewhat by keeping the elb ow flexed. He continues to deny any subjective fevers/chills/sweats. He was seen in July for a small wound which was found to be draining MRSA near his fist pancho, and since that time he has had continued irritation of the skin over the area. REVIEW OF SYSTEMS Negative except for pertinent items noted in HPI. Past Medical History Diagnosis Date Abdominal pain, [...] Dialysis patient (HCC) DVT (deep venous thrombosis) (HCC) x3 GI bleed 04/30/2012 from coumadin Gout [...] FISTULA; Surgeon: Oskar Meyer MD; Location: [facility] MAIN OR; Service: Vascula r; Laterality: Right; AV FISTULA PLACEMENT Left 05/06/2012 Procedure: AV FISTULA; Surgeon: Oskar Meyer MD; Location: [facility] MAIN OR; Service: Vascula r; Laterality: Left; Left arm possible right AV FISTULA REPAIR Left 07/11/2012 Procedure: AV FISTULA - GRAFT REPAIR/REVISION; Surgeon: Oskar Meyer MD; Location: [facility] IN OR; Service: Vascular; Laterality: Left; Superficialization of brachiobasilic fistula and right IJ perm cath insertion CATHETER REMOVAL Right 07/07/2012 Procedure: DIALYSIS CATHETER - REMOVAL; Surgeon: Oskar Meyer MD; Location: [facility] BEDSIDE P ROCEDURE; Service: General; Laterality: Right; perm cath COLONOSCOPY WITH EGD N/A 05/01/2012 Procedure: COLONOSCOPY W/ EGD; Surgeon: John Singleton MD; Location: [facility] ENDOSCOPY; Ser vice: Gastroenterology; Laterality: N/A; DIALYSIS FISTULA CREATION Left 07/11/2012 Procedure: DIALYSIS CATHETER - INSERTION; Surgeon: Oskar Meyer MD; Location: [facility] MAIN OR ; Service: Vascular; Laterality: Left; removed dialysis catheter from left neck and place d new on in left chest, attempted in right neck but unable to place DIALYSIS FISTULA CREATION Left 07/07/2012 Procedure: DIALYSIS CATHETER - INSERTION; Surgeon: Oskar Meyer MD; Location: [facility] BEDSIDE PROCEDURE; Service: General; Laterality: Left; temporary dialysis catheter KNEE ARTHROSCOPY Right 07/07/2012 Procedure: KNEE - ARTHROSCOPY; Surgeon: Favio Raza MD; Location: [facility] MAIN OR; Se rvice: Orthopedics; Laterality: Right; After 1530 SUPERFICIALIZATION OF AV FISTULA Right 03/30/2014 Procedure: AV FISTULA - SUPERFICIALIZATION; Surgeon: Oskar Meyer MD; Location: [facility] MAIN OR; Service: Vascular; Laterality: Right; UNLISTED PROCEDURE ARTHROSCOPY shoulder rt , ligaments Allergies Allergen Reactions Azithromycin Rash Unknown Lisinopril Other (See Comments) "makes me sweat and knocked me out" Penicillins Other (See Comments) Unknown- not sure 10/08/12: Patient tolerated Ceftriaxone during previous admissions. Prescriptions Prior to Admission Medication Sig Dispense [...] (two) times daily. 017 at Unknown time Scheduled Medications allopurinol 100 mg Oral Daily amLODIPine 10 mg Oral Daily budesonide-formoterol 2 puff Inhalation 2 times daily budesonide-formoterol 2 puff Inhalation 2 times daily calcium gluconate 1 g Intravenous Once carvedilol 6.25 mg Oral BID WC dextrose 50 mL Intravenous Once heparin (porcine) 5000 unit/0.5mL 5,000 Units Subcutaneous 3 times per day insulin regular 5 Units Intravenous Once levothyroxine 75 mcg Oral QAM AC sevelamer 800 mg Oral TID WC sodium bicarbonate 25 mEq Intravenous Once sodium bicarbonate 1,300 mg Oral BID sodium chloride 10 mL Intravenous Q8H Continuous Infusions PRN Medications acetaminophen OR acetaminophen, albuterol, HYDROcodone-acetaminophen, ondansetron OR* * ondansetron, polyethylene glycol, zolpidem Family History Problem Relation Age of Onset Heart disease Mother Heart disease Father Diabetes Father Cancer Father colon cancer History Smoking Status Former Smoker Packs/day: 1.00 Years: 23.00 Quit date: 04/28/2011 Smokeless Tobacco Never Used Comment: quit 17 yrs ago PHYSICAL EXAM Vital Signs: BP 142/66 | Pulse 85 | Temp 98.6 F (37 C) (Oral) | Resp 18 | Ht 1.702 m (5' 7.01") | Wt 84.9 kg (187 lb 3.2 oz) | SpO2 100% | BMI 29.31 kg/m Temp: [98.3 F (36.8 C)-98.6 F (37 C)] 98.6 F (37 C) (10/07 0632) BP: (142-150)/(66-77) 142/66 (10/08 631) Heart Rate: [82-86] 85 (10/08 631) Resp: [16-18] 18 (10/08 631) SpO2: [100 %] 100 % (10/08 631) Height: [170.2 cm (5' 7.01")] 170.2 cm (5' 7.01") (10/08 631) Weight: [84.9 kg (187 lb 3.2 oz)] 84.9 kg (187 lb 3.2 oz) (10/08 631) BMI (Calculated): [29.4] 29.4 (10/08 631) NAD, in apparent discomfort. Awake, alert, responding appropriately to questions. Chest wall w/o prominent collaterals. Breath sounds equal bilaterally. Right arm edematous, with erythema and induration of the skin improved since last exam on . Palpable thrill in AVF. Palpable radial pulse distally. There is pitting edema extendin g to the dorsum of the hand. DATA CBC: Lab Results Component Value Date WBC 8.72 10/07/2017 RBC 3.86 (L) 10/07/2017 HGB 11.2 (L) 10/07/2017 HCT 33.9 (L) 10/07/2017 MCV 88.0 10/07/2017 MCH 28.9 10/07/2017 MCHC 32.9 10/07/2017 RDW 55.1 (H) 10/07/2017 PLT 283 10/07/2017 MPV 6.9 10/07/2017 DIFFTYPE AUTOMATED 10/07/2017 71.99% segs CTA: Patent brachial artery and brachio-basilic AVF. There is significant edema of the uppe r arm. There is fluid around the right biceps muscle measuring [id number] concerning for pyomyo sitis. Previously placed right subclavian vein/SVC stents are occluded. PROBLEM LIST Principal Problem: 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HCC) Active Problems: Metabolic acidosis Diabetes mellitus with ESRD (end-stage renal disease) HTN (hypertension) ESRD (end stage renal disease) on dialysis Anemia of chronic kidney failure Gout ASSESSMENT & PLAN 1. Improvement in RUE cellulitis but persistent pain and fluid collection concerning for py omyositis: The patient has a history of MRSA from a wound in the upper arm, and the persiste nce of symptoms despite improvement of his cellulitis raises concern that this may be a pers istent infectious source. I have contacted Dr. Haile from Ortho as he was also notified of the patient's arrival overnight to evaluate for his possible pyomyositis. Ultrasound-guided aspiration of this fluid may also be of benefit. 2. Central venous occlusion: While it certainly may be contributing to his upper arm edema, his fistula continues to function well and his focal pain in the biceps seems more attribut able to the fluid collection on the biceps muscle. Would defer treatment of this for now. 3. ESRD with hyperkalemia, K now 5.7, last HD 1 week ago: I am concerned that while accessi ble, he may have active infection in close proximity to his brachio-basilic AVF, and if he r equires any drainage of his biceps fluid collection he will likely need access via a tunnele d HD cath for some time as this heals. I will contact IR this morning to discuss aspiration of the fluid collection in the arm and tunneled cath placement for HD. Thank you for allowing me to participate in the care of this patient. We will continue to julio lemons. Obdulio Ellison MD, FACS [facility] Location: [address] [place] [address]. [address] [address] (Office) documente d in this encounter ED Notes Conversion Transaction, Provider Unknown - 10/11/2017 11:02 AM PDTFormatting of this note m ight be different from the original. ED Notes by Porsha Cast RN at 10/11/17 1102 Author: Porsha Cast RN Service: Cardiology Author Type: Registered Nurse Filed: 10/11/17 1114 Date of Service: 10/11/17 1102 Status: Addendum [employer] Driver: Porsha Cast RN (Registered Nurse) Related Notes: Original Note by Porsha Cast RN (Registered Nurse) filed at 10/11/17 11 04 Pt tolerated well. Given 5000 units heparin IV, 200 mcg fentanyl, no versed. Dialysis cat heter in place with 5000 unit/ml heparin dwell, ready for use. Fistula has hemostasis, dres sing dry and clean. Pt lethargic but close to current baseline. VSS. Pt will return to [facility] for recovery and inpatient care. Heparin gtt will be restarted. onver quique Transaction, Provider Unknown - 10/07/2017 5:07 AM PDT ED Notes by Johnson Mak RN at 10/07/17506 Author: Johnson Mak RN Service: (none) Author Type: Registered Nurse Filed: 10/07/17506 Date of Service: 10/07/17506 Status: Signed [employer] Driver: Johnson Mak RN (Registered Nurse) Pt resting comfortably, lab just left w/ 2nd set of cultures. Johnson Mak RN 10/07/17 0507 onver quique Transaction, Provider Unknown - 10/07/2017 4:24 AM PDT ED Notes by Johnson Mak RN at 10/07/174 Author: Johnson Mak RN Service: (none) Author Type: Registered Nurse Filed: 10/07/175 Date of Service: 10/07/17423 Status: Signed [employer] Driver: Johnson Mak RN (Registered Nurse) Jordan at bedside attempting IV start w/ ultrasound. Johnson Mak RN 10/07/17 0425 onver quique Transaction, Provider Unknown - 10/07/2017 3:41 AM PDT ED Notes by Johnson Mak RN at 10/07/17 034 Author: Johnson Mak RN Service: (none) Author Type: Registered Nurse Filed: 10/07/17 0348 Date of Service: 10/07/17340 Status: Addendum [employer] Driver: Johnson Mak RN (Registered Nurse) Related Notes: Original Note by Johnson Mak RN (Registered Nurse) filed at 10/07/[address] [facility], they report they only gave dilaudid and zofran during his stay. Pt arrived c/o chest pain when breathing, cellulitis in right arm up into right chest, tend er to touch. Thrill present on fistula. Pt confused when answering questions. Johnson Mak RN 10/07/17347 onver quique Transaction, Provider Unknown - 10/07/2017 3:20 AM PDT ED Notes by Johnson Mak RN at 10/07/17319 Author: Johnson Mak RN Service: (none) Author Type: Registered Nurse Filed: 10/07/17320 Date of Service: 10/07/17319 Status: Signed [employer] Driver: Johnson Mak RN (Registered Nurse) Pt states he does dialysis sat. Sat. sat. Last Saturday his fistula started swelling and has not had dialysis in at bedside. Johnson Mak RN 10/07/17320 oung, Trevor Odom DO - 10/07/2017 3:20 AM PDT ED Provider Notes by Trevor Bernal DO at 10/07/17319 Author: Trevor Bernal DO Service: Emergency Department Author Type: Physician Filed: 10/07/172002 Date of Service: 10/07/17319 Status: Signed [employer] Driver: Trevor Bernal DO (Physician) [facility] Department of Emergency Medicine 3:20 AM History of Present Illness Patient Identification Carol Potter is a 52 y.o. male. Patient information was obtained from patient. History/Exam limitations: none. Patient presented to the Emergency Department by: [facility] History of Presenting Illness The patient is a 52 y.o. male presenting with Chief Complaint Patient presents with Skin Complaint Complicated Location- right arm Onset- 1 week ago Duration- worsening Severity/Character- moderate / painful and red Worse with- nothing reported Better with- nothing reported Radiation- right arm towards hand Denies- any other symptoms at this time Admits- right arm pain, skin complaint Context- The patient was being evaluated at [facility] ED who referred him to our depa rtment for further evaluation with concern for infection around his RUE fistula site. He was given IV vancomycin and Cefepime while at [facility]. The patient receives dialysis M/ /, last received 1 week ago. He states that he no longer makes urine on his own secondary to his chronic kidney disease. He admits to a history of asthma. PCP: ANDRY LOFTON Specialists: Past Medical History Diagnosis Date Abdominal pain, right upper quadrant 04/13/2012 Amphetamine and other psychostimulant dependence, continuous 04/02/2012 Anemia Anemia due to blood loss 04/30/2012 Asthma pt not using inhaler any more, no symptoms AV fistula (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) 10/27/2013 Chronic systolic heart failure ([facility]) 09/10/2016 Diabetes mellitus type I ([facility]) Dialysis patient ([facility]) DVT (deep venous thrombosis) ([facility]) x3 GI bleed 04/30/2012 from coumadin Gout Hyperkalemia 11/09/2013 Hyperlipidemia Hyperphosphatemia 05/24/2012 Hypertension Hyponatremia 09/08/2016 Knee pain, right 07/06/2012 MSSA (methicillin susceptible Staphylococcus aureus) infection 04/11/2012 Neuromuscular disorder (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 Thyroid disease Walker as ambulation aid Past Surgical History Procedure Laterality Date AV FISTULA PLACEMENT Right 02/09/2014 Procedure: AV FISTULA; Surgeon: Oskar Meyer MD; Location: [facility] MAIN OR; Service: Vascula r; Laterality: Right; AV FISTULA PLACEMENT Left 05/06/2012 Procedure: AV FISTULA; Surgeon: Oskar Meyer MD; Location: [facility] MAIN OR; Service: Vascula r; Laterality: Left; Left arm possible right AV FISTULA REPAIR Left 07/11/2012 Procedure: AV FISTULA - GRAFT REPAIR/REVISION; Surgeon: Oskar Meyer MD; Location: [facility] MA IN OR; Service: Vascular; Laterality: Left; Superficialization of brachiobasilic fistula and right IJ perm cath insertion CATHETER REMOVAL Right 07/07/2012 Procedure: DIALYSIS CATHETER - REMOVAL; Surgeon: Oskar Meyer MD; Location: [facility] BEDSIDE P ROCEDURE; Service: General; Laterality: Right; perm cath COLONOSCOPY WITH EGD N/A 05/01/2012 Procedure: COLONOSCOPY W/ EGD; Surgeon: John Singleton MD; Location: [facility] ENDOSCOPY; Ser vice: Gastroenterology; Laterality: N/A; DIALYSIS FISTULA CREATION Left 07/11/2012 Procedure: DIALYSIS CATHETER - INSERTION; Surgeon: Oskar Meyer MD; Location: [facility] MAIN OR ; Service: Vascular; Laterality: Left; removed dialysis catheter from left neck and place d new on in left chest, attempted in right neck but unable to place DIALYSIS FISTULA CREATION Left 07/07/2012 Procedure: DIALYSIS CATHETER - INSERTION; Surgeon: Oskar Meyer MD; Location: [facility] BEDSIDE PROCEDURE; Service: General; Laterality: Left; temporary dialysis catheter KNEE ARTHROSCOPY Right 07/07/2012 Procedure: KNEE - ARTHROSCOPY; Surgeon: Favio Raza MD; Location: [facility] MAIN OR; rvice: Orthopedics; Laterality: Right; After 1530 SUPERFICIALIZATION OF AV FISTULA Right 03/30/2014 Procedure: AV FISTULA - SUPERFICIALIZATION; Surgeon: Oskar Meyer MD; Location: [facility] MAIN OR; Service: Vascular; Laterality: Right; UNLISTED [...] MD carvedilol (COREG) 3.125 MG tablet Take 2 tablets by mouth 2 (two) times daily with meals. 07/25/17 Barry Altamirano MD Cholecalciferol 2000 UNITS TABS Take 1 [...] yrs ago Alcohol use No Drug use: Yes Types: Marijuana Comment: states he doesnt smoke anymore Sexual activity: Not on file Other Topics Concern Not on file Social History Narrative , LIVES WITH . HAS NO BIOLOGICAL KIDS; 2 STEP KIDS. CURRENTLY UNEMPLOYED, BEFOR E WORKED AT [employer] Quit METHAMPHETAMINES PER PATIENT after t he ARF in mar 2012. FATHER HAS COLON CANCER, HEART DISEASE, MOTHER 15 YEARS AGO. NO FH KIDNEY PROB LEMS. Family History Problem Relation Age of Onset Heart disease Mother Heart disease Father Diabetes Father Cancer Father colon cancer I have personally reviewed the social history, pertinent history has been addressed. Review of Systems Constitutional: Negative for fever, chills Eyes: Negative for vision changes Nose: Negative for congestion, nosebleeds Throat: Negative for sore throat CV/Resp: Negative for chest pain, [id number], cough GI: Negative for abdominal pain, nausea, vomiting, or diarrhea : Negative for urinary problems Musculoskeletal: Positive for: extremity pain Negative for back pain, joint pain Skin: Positive for: skin complaint Neuro/Psych: Negative for headache Endo/heme/Lymph: Negative for swollen lymph nodes, easy bruising Physical Exam BP 149/74 (BP Location: Left upper arm) | Pulse 86 | Resp 16 | SpO2 100% Vital signs interpretation: hypertensive, otherwise WNL Pulse Oximetry interpretation: Normal General: Alert, in no apparent distress Eyes: Normal inspection, pupils equal and round, non-icteric ENT: Ears normal Nose normal Moist mucous membranes Oropharynx clear Neck: Normal inspection Supple Cardiovasc: Rate and rhythm normal No murmurs Respiratory: Diffuse wheezing throughout Abdomen: Soft, non-tender, non-distended No guarding or rebound No peritoneal sign Back: Normal inspection RUE: Swollen, warm to the touch, fistula present with palpable thrill 2+ radial and ulnar pulses Can make thumb's up, OK sign, and flex extend wrist Can flex and extend all 5 fingers Skin: Color normal Warm and dry No rash Neuro: Alert, no AMS No gross motor/sensory deficits Moving all extremities Medical Decision Making and Emergency Department Course ED Department Course 52 y.o. male presents to the ED with a chief complaints of fistula complaint. Ddx: I consi dered cellulitis, abscess, septic shock, and other infectious causes for patients symptoms. I will start IV fluids, order labs and imaging, and reevaluate the patient. BP 149/74 (BP Location: Left upper arm) | Pulse 86 | Resp 16 | SpO2 100% 4:31 AM Cardiac panel shows mild anemia, moderate hyperkalemia, hyponatremia, base deficit (14), hy pocalcemia, acute kidney disease, decreased albumin, elevated MMB, and is otherwise grossly normal. Troponin is negative at this time. CRP is elevated at 9.3. Sed rate is prolonged at 36. 4:[address] resulted with: 1. 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 2. Extensive right upper extremity and chest wall subcutaneous edema could be a combination of infection and related to venous obstruction. 3. Approximately 4 x 1 x 5 m fluid collection at the anterior aspect of the distal biceps m uscle. If there is clinical concern for abscess/pyomyositis, aspiration could be considered. 4. No other vascular thrombosis seen with patent ectatic bypass graft as seen previously. 4:47 AM I spoke with Dr. Ellison, Vacuolar Surgery. We discussed the patient's case and he recomm ends admission of the patient, and he agrees to evaluate the patient later this morning. He does not recommend Heparin at this time. 4:48 AM Phone call received by Dr. Mtz, Hospitalist. We discussed the patient's case and he acc epts the patient for admission. Records Reviewed Old medical records. Nursing notes. Previous [facility] [place] ED visits for unrelated complaints. [facility] records reviewed Potassium 5.7 Sodium 127 WBC 7.9 Troponin Elevated Laboratory Evaluation Results Procedure Component Value Ref Range Date/Time Blood Culture Set 1 [[id number]] Collected: 10/07/17420 Order Status: Sent Specimen: Blood from Blood Updated: 10/07/17655 Blood culture, set 2 [[id number]] Collected: 10/07/17446 Order Status: Sent Specimen: Blood from Blood, peripheral draw Updated: 10/07/17655 Cardiac Panel [[id number]] (Abnormal) Collected: 10/07/17 0339 Order Status: Completed Updated: 10/07/17430 WBC 8.72 3.80 - 11.00 K/uL RBC 3.86 (L) 4.20 - 5.70 M/uL HGB 11.2 (L) 13.2 - 17.0 g/dL HCT 33.9 (L) 39.0 - 50.0 % MCV 88.0 80.0 - 100.0 fl MCH 28.9 27.0 - 34.0 pg MCHC 32.9 32.0 - 35.5 g/dL RDW SD 55.1 (H) 37 - 53 fl PLT 283 150 - 400 K/uL MPV 6.9 fl DIFF TYPE AUTOMATED NEUTROPHILS 71.99 % LYMPHOCYTES 6.30 % MONOCYTES 7.96 % EOSINOPHILS 13.07 % BASOPHILS 0.68 % NEUTROPHILS ABS 6.28 1.90 - 7.40 K/uL LYMPHOCYTES ABS 0.55 (L) 1.00 - 3.90 K/uL MONOCYTES ABS 0.69 0.00 - 0.80 K/uL EOSINOPHILS ABS 1.14 (H) 0.00 - 0.50 K/uL BASOPHILS ABS 0.06 0.00 - 0.10 K/uL SODIUM 130 (L) 135 - 145 mmol/L POTASSIUM 5.7 (H) 3.5 - 4.9 mmol/L CHLORIDE 100 99 - 109 mmol/L CO2 14 (LL) 23 - 32 mmol/L ANION GAP AGAP 21 (H) 5 - 20 mmol/L GLUCOSE 82 65 - 99 mg/dL BUN 81 (H) 8 - 25 mg/dL CREATININE 15 (H) 0.70 - 1.30 mg/dL BUN/CREAT 5 CALCIUM 7.4 (L) 8.5 - 10.5 mg/dL TOTAL PROTEIN 7.2 6.3 - 8.2 g/dL Albumin 2.8 (L) 3.6 - 5.0 g/dL GLOBULIN 4.3 1.3 - 4.9 g/dL A/G 0.7 (L) 1.0 - 2.4 TBIL 0.6 0.1 - 1.5 mg/dL ALK PHOS 115 35 - 115 U/L AST 36 10 - 45 U/L ALT 30 10 - 65 U/L EGFR 4 (L) >60 mL/min/1.73m2 CPK 163 55 - 400 U/L INR 1.0 APTT 33 (H) 23 - 32 seconds MMB 7.6 (H) 0.5 - 3.6 ng/mL CK-MB Index 4.7 Troponin I, Lab [[id number]] Collected: 10/07/17338 Order Status: Completed Specimen: Blood Updated: 10/07/17430 TROPONIN I <0.020 0.00 - 0.10 ng/mL C-Reactive Protein [[id number]] (Abnormal) Collected: 10/07/17338 Order Status: Completed Specimen: Blood Updated: 10/07/17430 CRP 9.3 (H) <0.5 mg/dL Sedimentation Rate (ESR) [[id number]] (Abnormal) Collected: 10/07/17338 Order Status: Completed Specimen: Blood Updated: 10/07/17409 ESR 36 (H) 0 - 20 mm/Hr I personally reviewed the lab results and they have been posted to the chart. Pertinent po sitive and negative findings have been addressed appropriately and I have discussed any abno rmal labs with the patient. Radiology and EKG Evaluation Imaging Results CTA upper extremity right with IV contrast (Final result) Result time 10/07/17 04:43:26 Final result by Favio Abbasi MD (10/07/17 04:43:26) Impression: 1. 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 2. Extensive right upper extremity and chest wall subcutaneous edema could be a combination of infection and related to venous obstruction. 3. Approximately 4 x 1 x 5 m fluid collection at the anterior aspect of the distal biceps m uscle. If there is clinical concern for abscess/pyomyositis, aspiration could be considered. 4. No other vascular thrombosis seen with patent ectatic bypass graft as seen previously. RADIA Electronically signed by Favio Abbasi MD on Oct 07 2017 4:43AM Referring Provider Tg sierra: [phone] ID: [id number] Narrative: EXAM: RIGHT UPPER EXTREMITY CT ANGIOGRAM WITH CONTRAST EXAM DATE: 10/07/2017 04:03 AM. CLINICAL HISTORY: Right upper arm fistula, infection. COMPARISON: 10/05/2017. TECHNIQUE: Thin-section axial images were acquired of the upper extremity in the arterial p hase after administration of intravenous contrast. IV contrast: Iodinated. Post-processing: Multiplanar MPR and 3D MIP reformats. Other: None. In accordance with CT protocol optimization, one or more of the following dose reduction te chniques were utilized for this exam: automated exposure control, adjustment of mA and/or KV based on patient size, or use of iterative reconstructive technique. FINDINGS: Vascular Structures: Patient has a SVC and subclavian venous stent which appears thrombosed and collapsed. Remaining vascular structures appear widely patent, including an ectatic bra chial to cephalic vein fistula. The graft measures up to 29 x 20 mm in cross section. No arterial high-grade stenosis seen. Other: Severe subcutaneous edema in the right upper extremity and right chest wall. There i s a fluid collection at the anterior aspect of the distal biceps muscle, measuring approxima tely 4 x 1 x 5 cm, axial image 330 series 6 and sagittal image 105. Collection is directly p osterior and medial to the bypass graft. No other discrete fluid collection seen. No trackin g soft tissue gas seen. Reactive adenopathy. Preliminary result by Favio Abbasi MD (10/07/17 04:36:53) Impression: 1. 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 2. Extensive right upper extremity an chest wall subcutaneous edema could be a combination of infection and related to venous obstruction. 3. Approximately 4 x 1 x 5 m fluid collection at the anterior aspect of the distal biceps m uscle. If there is clinical concern for abscess/pyomyositis, aspiration could be considered. 4. No other vascular thromboses seen with patent ectatic bypass graft as seen previously.. RADIA Read by Favio Abbasi MD on Oct 07 2017 4:36AM ====EKG Interpretation==== Time: 0330 Rate: 83 Rhythm: sinus [place]: normal Intervals: normal ST: diffuse flattened Compared to 10/05/17 there is no change Overall: Non-specific EKG Interpreted by Trevor Bernal D.O. Rhythm strip analysis: normal sinus rhythm ED Diagnoses Final diagnoses Pain Associated Orders XR CHEST 1 VIEW Swelling of right upper extremity Cellulitis of right upper extremity End stage renal failure on dialysis (HCC) Superior vena caval stenosis Anemia in ESRD (end-stage renal disease) (HCC) ESRD (end stage renal disease) on dialysis Infection of arteriovenous fistula, subsequent encounter Disposition: ED Disposition ED Disposition Condition Comment Admit/Observation Bed request special needs: None Diagnosis?: R arm swelling, cellulitis Follow-up Information None Discharge Medications: Current Discharge Medication List Procedures Additional Documentation Procedures Attending Provider Note: I, Trevor Bernal DO personally performed the services described i n this documentation, as scribed by Zeferino Hung in my presence, and it is both accurate an d complete. Chart Reviewed and Completed: 10/07/2017 8:02 PM Scribe: Cande Wilkes, scribing for and in the presence of Trevor Bernal DO. Signed by: Cande Sim 10/07/2017 5:08 AM Trevor Bernal DO 10/07/172002 onversion Pate saction, Provider Unknown - 10/07/2017 3:15 AM PDTFormatting of this note might be differen t from the original. ED Notes by Vanessa Tate RN at 10/07/17314 Author: Vanessa Tate RN Service: (none) Author Type: Registered Nurse Filed: 10/07/17314 Date of Service: 10/07/17314 Status: Signed [employer] Driver: Vanessa Tate RN (Registered Nurse) Bed: 19 Expected date: Expected time: Means of arrival: Comments: carol Tate RN 10/07/17314 onver quique Transaction, Provider Unknown - 10/07/2017 2:15 AM PDT ED Triage Notes by Vanessa Tate RN at 10/07/17214 Author: Vanessa Tate RN Service: (none) Author Type: Registered Nurse Filed: 10/07/17224 Date of Service: 10/07/17214 Status: Signed [employer] Driver: Vanessa Tate RN (Registered Nurse) Transfer from [facility] for c/o chest pain and right arm swelling from shoulder to hand. Pt has fistula to bilateral arms, left is not working and pt reported he was recently told his right arm fistula is no longer functional and is set to have surgery this coming . Last dialysis was last Saturday. Chest is tender to touch. Was seen recently in this ED, wa s given IV antibiotics per pt and spouse. Given dilaudid and zofran prior to transfer with i mprovement in pain. Potassium was 5.7 and troponin 0.62. docume nted in this encounter Miscellaneous Notes Plan of Care - Conversion Transaction, Provider Unknown - 10/19/2017 8:44 AM PDT Plan of Care by Nikky Ball RN at 10/19/17843 Author: Nikky Ball RN Service: (none) Author Type: Registered Nurse Filed: 10/19/17844 Date of Service: 10/19/17843 Status: Signed [employer] Driver: Nikky Ball RN (Registered Nurse) Problem: Safety Goal: Patient will be injury [...] policy, and non-skid footwear provided. Outcome: Progressing Call light in reach, non-skid socks on. lan o f Care - Conversion Transaction, Provider Unknown - 10/18/2017 11:07 PM PDTFormatting of thi s note might be different from the original. Plan of Care by Shyanne Nesbitt RN at 10/18/172306 Author: Shyanne Nesbitt RN Service: (none) Author Type: Registered Nurse Filed: 10/18/172306 Date of Service: 10/18/172306 Status: Signed [employer] Driver: Shyanne Nesbitt RN (Registered Nurse) Safety Patient will be injury free during hospitalization Progressing Maintain bed in low, locked position at all times. [place] patient and family to hospital surroundings. Provide non-skid slippers. Call light within reach. Rounding per standard. lan o f Care - Conversion Transaction, Provider Unknown - 10/18/2017 12:07 PM PDTFormatting of thi s note might be different from the original. Plan of Care by Faustino Singh RN at 10/18/17 1207 Author: Faustino Singh RN Service: (none) Author Type: Registered Nurse Filed: 10/18/17 3094 Date of Service: 10/18/171206 Status: Signed [employer] Driver: Faustino Singh RN (Registered Nurse) Pain Goal: Patient s pain/discomfort is manageable Assess and monitor patient s pain using appropriate pain scale. Collaborate with interdis ciplinary team and initiate plan and interventions as ordered. Re-assess patient s pain le curtis approximately 1-2 hours after pain management intervention. Premedicate as needed. Outcome: Progressing Patient states pain is under control. Will continue to monitor and provide medication as we ll as comfort measures as needed. Safety Goal: Patient will be injury free during hospitalization Assess and monitor vitals signs, neurological status including level of consciousness and o rientation. Assess patient s risk for falls and implement fall prevention plan of care and interventions per hospital policy. Ensure arm band on, uncluttered walking paths in room, adequate room lighting, call light a nd overbed table within reach, bed in low position, wheels locked, side rails up per policy, and non-skid footwear provided. Outcome: Progressing Patient will remain free from falls during hospital visit. Bed in lowest position. Room stoney e from clutter. Call light within reach. Patient uses call light appropriately. Fall Prevention Goal: No Falls during Hospital Stay Outcome: Progressing Maintain bed in low, locked position at all times. [place] patient and family to hospital surroundings. Provide non-skid slippers. Call light within reach. Rounding per standard Potential for Compromised Skin Integrity Goal: Outcome: Progressing Provide teaching at level of understanding. Keep skin clean and dry Monitor patient's hygiene practices. Check skin/rash/scabs every 4 hours for redness, tenderness or drainage. lan o f Care - Conversion Transaction, Provider Unknown - 10/17/2017 8:31 PM PDTFormatting of thi s note might be different from the original. Plan of Care by Shyanne Nesbitt RN at 10/17/172030 Author: Shyanne Nesbitt RN Service: (none) Author Type: Registered Nurse Filed: 10/17/172031 Date of Service: 10/17/172030 Status: Signed [employer] Driver: Shyanne Nesbitt RN (Registered Nurse) Pain Patient's pain/discomfort is manageable Progressing Patient states pain is tolerable at this moment, will continue to monitor and provide medic ation as well as comfort measures as needed. lan o f Care - Conversion Transaction, Provider Unknown - 10/17/2017 11:50 AM PDTFormatting of thi s note might be different from the original. Plan of Care by Faustino Singh RN at 10/17/171149 Author: Faustino Singh RN Service: (none) Author Type: Registered Nurse Filed: 10/17/171150 Date of Service: 10/17/171149 Status: Signed [employer] Driver: Faustino Singh RN (Registered Nurse) Pain Goal: Patient s pain/discomfort is manageable Assess and monitor patient s pain using appropriate pain scale. Collaborate with interdis ciplinary team and initiate plan and interventions as ordered. Re-assess patient s pain le curtis approximately 1-2 hours after pain management intervention. Premedicate as needed. Outcome: Progressing Patient states pain is under control. Will continue to monitor and provide medication as we ll as comfort measures as needed. Safety Goal: Patient will be injury free during hospitalization Assess and monitor vitals signs, neurological status including level of consciousness and o rientation. Assess patient s risk for falls and implement fall prevention plan of care and interventions per hospital policy. Ensure arm band on, uncluttered walking paths in room, adequate room lighting, call light a nd overbed table within reach, bed in low position, wheels locked, side rails up per policy, and non-skid footwear provided. Outcome: Progressing Patient will remain free from falls during hospital visit. Bed in lowest position. Room stoney e from clutter. Call light within reach. Patient uses call light appropriately. Fall Prevention Goal: No Falls during Hospital Stay Outcome: Progressing Maintain bed in low, locked position at all times. [place] patient and family to hospital surroundings. Provide non-skid slippers. Call light within reach. Rounding per standard Potential for Compromised Skin Integrity Goal: Outcome: Progressing Provide teaching at level of understanding. Keep skin clean and dry Monitor patient's hygiene practices. Encouraged frequent repositioning every 2 hours. lan o f Care - Conversion Transaction, Provider Unknown - 10/16/2017 8:30 PM PDTFormatting of thi s note might be different from the original. Plan of Care by Shyanne Nesbitt RN at 10/16/172029 Author: Shyanne Nesbitt RN Service: (none) Author Type: Registered Nurse Filed: 10/16/172029 Date of Service: 10/16/172029 Status: Signed [employer] Driver: Shyanne Nesbitt RN (Registered Nurse) Daily Care Daily care needs are met Progressing Patient makes needs known, and is participating with completion of ADL's. WCTM lan o f Care - Conversion Transaction, Provider Unknown - 10/16/2017 11:07 AM PDTFormatting of thi s note might be different from the original. Plan of Care by Praveena Cordova RN at 10/16/171106 Author: Praveena Cordova RN Service: (none) Author Type: Registered Nurse Filed: 10/16/171106 Date of Service: 10/16/171106 Status: Signed [employer] Driver: Praveena Cordova RN (Registered Nurse) Problem: Safety Goal: Patient will be injury [...] and non-skid footwear provided. Outcome: Progressing Pt educated on POC and safety precautions, no questions or concerns. Bedside table and beltran l light within reach, hourly rounding performed, bed in lowest position, isolation precautio ns followed, and Pt using call light appropriately. Will continue to monitor Pt. Problem: Pain Goal: Patient's pain/discomfort is manageable Assess and monitor patient's pain using appropriate pain scale. Collaborate with interdisci plinary team and initiate plan and interventions as ordered. Re-assess patient's pain level approximately 1-2 hours after pain management intervention. Premedicate as needed. Outcome: Progressing Pt c/o generalized pain and specifically to RUE, pain managed appropriately with PRN medica tion. Pt educated on pain management and pain scale, no questions or concerns. Will contin ue to monitor Pt and medicate PRN. iscfaisal lazcano - Conversion Transaction, Provider Unknown - 10/16/2017 9:45 AM PDTFormatting of th is note might be different from the original. Treatment Plan by Barbara Ramos PT at 10/16/17 0945 Author: Barbara Ramos PT Service: (none) Author Type: Physical Therapist Filed: 10/16/17 1116 Date of Service: 10/16/17 0945 Status: Signed [employer] Driver: Barbara Ramos PT (Physical Therapist) PHYSICAL THERAPY EVALUATION PT Received On: 10/16/17 Reason for Treatment: Other (comment) (right upper extremity pain and swelling) Requires PT Follow Up: No Follow up PT Only?: No PT Eval/Reassessment Date: 10/16/17 Assistance Required: 1 person Machine Sewer Needed: No Recommendations: Home Assist Equipment Recommended: Cane single point PT Ready for Discharge: Yes Recommendation Comments: Pts calling to get cane for d/c home Plan Treatment/Interventions: Discharge skilled PT services PT Frequency: Evaluation only Care Duration (# of days): 7 # of days Summary Comments: Eval/chart review performed in room, pt admitted for right upper extremity pain a nd swelling. He was supine in bed with in room. Bed mobility Angélica, sit-stand Angélica. He i nitally ambulated holding IV pole x 100ft, pt performed stair training x 3 steps Angélica. Pt am b with cane 100ft back to room with supervision. He states he has FWW at home but it is a ti ght fit around his house. Educated pt about using Cane for safe ambulation since he has had an increased number of falls at home. Pt also agreeable to using a walking stick outside. Si t-supine Angélica, pt supine in bed @ end of session. His is at home to assist him. Precautions Other Precautions: Fall risk with no AD Cognition Overall Cognitive Status: Within Functional Limits Orientation Level: Oriented Assessment of Patient Status Assessment of Patient Status: Decreased LE strength, Decreased endurance Home Environment Type of Home: Home one story Home Exterior Layout: 1-3 steps (2 steps ) Home Interior Layout: Lives on main level with bedroom/bathroom Bathroom Shower/Tub: Tub/shower unit Bathroom Toilet: Standard Bathroom Equipment: Shower chair Bathroom Accessibility: Not accessible (states FWW does not fit around house ) Prior Function Level of [place]: Modified independent with functional mobility, Modified independent with ADLs, Modified independent with IADLs Falls in Past Year: Yes (pt fell a few weeks ago) Lives With: Spouse ( is at home all the time ) Receives Help From: Family RUE Assessment: Within Functional Limits LUE Assessment: Within Functional Limits RLE Assessment: Exceptions to WFL (3/5 ) LLE Assessment: Exceptions to WFL (3/5 ) FUNCTIONAL MOBILITY Bed Mobility Supine to Sit: Modified independent Sit to Supine: Modified independent Transfers Sit to/from Stand: Modified independent Bed to/from Chair: Modified independent Ambulation Maximal Ambulation Distance (feet): 200ft Total Ambulation Distance (feet): 200ft Ambulation Assistance: Supervision Distance limited by?: Patient's ability Pattern: Alternating Assistive Device: Cane single point (initally holding IV pole ) Stairs Number of Stairs: 3 Stairs Assistance: Modified independent Number of stairs limited by?: Therapist/staff discretion Stair Management Technique: Step-to, Rails bilateral Activity Tolerance: Patient limited by fatigue The patient demonstrated no indication of pain during therapy session. Education Completed: Education Topics: [x] Rationale for PT [] PT POC [x] DC planning [] Precautions [] Exercises [x] Bed mobility [x] Transfer training with hand placement [x] Gait training [x] Stair training [x] Use of gait belt [x] Other Use of AD Completed with: [x] Patient [x] Spouse [] Significant other [] Family [] Caregiver [] Other Completed by: [x] Verbal education [] Demonstration [] Handout [] Other: Response to Education: [x] Stated Understanding [] Reinforcement necessary [] Returned demonstration [] Demonstrated understanding [] No evidence of learning [] Refused Physical Therapy Goals eval/dc Low - 24110 Moderate - 61899 High - 88129 History [] no personal factors &/or comorbidities [x] 1-2 personal factors &/or comorbidit ies [] 3 or more personal factors &/or comorbidities Examination [] 1-2 elements [x] 3 elements [] 4 or more elements Clinical Presentation [x] stable [] evolving [] unstable Clinical Decision Making Complexity: [x] Low 01299 [] Moderate 22409 [] High 9 7163 lan o f Care - Conversion Transaction, Provider Unknown - 10/16/2017 1:20 AM PDTFormatting of thi s note might be different from the original. Plan of Care by Obie Andujar RN at 10/16/17119 Author: Obie Andujar RN Service: (none) Author Type: Registered Nurse Filed: 10/16/17120 Date of Service: 10/16/17119 Status: Signed [employer] Driver: Obie Andujar RN (Registered Nurse) Pain Goal: Patient s pain/discomfort is manageable Assess and monitor patient s pain using appropriate pain scale. Collaborate with interdis ciplinary team and initiate plan and interventions as ordered. Re-assess patient s pain le curtis approximately 1-2 hours after pain management intervention. Premedicate as needed. Outcome: Progressing Patient states pain is under control. Will continue to monitor and provide medication as we ll as comfort measures as needed. Safety Goal: Patient will be injury free during hospitalization Assess and monitor vitals signs, neurological status including level of consciousness and o rientation. Assess patient s risk for falls and implement fall prevention plan of care and interventions per hospital policy. . lan o f [place] - Bhargav Mercado MD - 10/15/2017 11:25 PM PDTFormatting of this note might be diffe rent from the original. Plan of Care by Bhargav Mercado MD at 10/15/172324 Author: Bhargav Mercado MD Service: Hospitalist Author Type: Physician Filed: 10/18/171934 Date of Service: 10/15/172324 Status: Signed [employer] Driver: Bhargav Mercado MD (Physician) Related Notes: Original Note by Bhargav Mrecado MD (Physician) filed at 10/15/17 8261 Notified by RN, the patient had 10 out of 10 chest pain. Evaluated [facility]. Reported right nipple pain that is worse with movement and is tender to touch and also h urts when he breathes. Per , he ate a double meal; and the food did not sit well with hi m. He has not had a bowel movement in a week. The patient has reproducible tenderness of the right nipple, but there is no local inflamma tory lesion. Lungs are clear to auscultation bilaterally, and heart is regular rate and rhyt hm. Abdomen is benign. Ordered chest x-ray, 12-lead EKG, telemetry, aspirin 162 mg chewable, cardiac enzymes. EKG shows sinus rhythm with a first-degree A-V block of 214, normal QRS duration, QTc is 46 5, and no acute STEMI. Chest x-ray is just completed, awaiting report. lan of Care - Conve rsion Transaction, Provider Unknown - 10/15/2017 11:24 AM PDTFormatting of this note might b e different from the original. Plan of Care by Kimber Mario RN at 10/15/17 4652 Author: Kimber Mario RN Service: (none) Author Type: Registered Nurse Filed: 10/15/17 1124 Date of Service: 10/15/171123 Status: Signed [employer] Driver: Kimber Mario RN (Registered Nurse) Daily Care Daily care needs are met Progressing Discharge Barriers Patient's discharge needs are met Progressing Infection Signs and symptoms of infections are decreased or avoided Progressing Pain Patient's pain/discomfort is manageable Progressing Psychosocial Needs Demonstrates ability to cope with hospitalization/illness Progressing Collaborate with patient/family/caregiver to identify patient specific goals for this h ospitalization Progressing Safety Patient will be injury free during hospitalization Progressing Call light within reach. Pain is manageable. lan o f Care - Conversion Transaction, Provider Unknown - 10/15/2017 2:39 AM PDTFormatting of thi s note might be different from the original. Plan of Care by Grecia Rangel RN at 10/15/17238 Author: Grecia Rangel RN Service: (none) Author Type: Registered Nurse Filed: 10/15/17 0241 Date of Service: 10/15/17238 Status: Signed [employer] Driver: Grecia Rangel RN (Registered Nurse) Pain Patient's pain/discomfort is manageable Progressing Pt reports improvements with prescribed pain medication, reassess and medicate PRN lan o f Care - Dwain Chase MD - 10/14/2017 4:06 PM PDTFormatting of this note m ight be different from the original. Plan of Care by Dwain Lima MD at 10/14/17 1606 Author: Dwain Lima MD Service: Infectious Disease Author Type: Physician Filed: 10/14/17 1606 Date of Service: 10/14/17 1606 Status: Signed [employer] Driver: Dwain Lima MD (Physician) No stable regimen for vancomycin yet. Pending levels after next dialysis. lan of Care - Conversion Transaction, Provider Unknown - 10/14/2017 10:59 AM PDT Plan of Care by Lubna Peterson RN at 10/14/17 105 Author: Lubna Peterson RN Service: (none) Author Type: Registered Nurse Filed: 10/14/177 Date of Service: 10/14/171058 Status: Signed [employer] Driver: Lubna Peterson RN (Registered Nurse) Daily Care Daily care needs are met Progressing Patient preforming ADLs well with assist from staff. Pain Patient's pain/discomfort is manageable Progressing Patient reports pain is well controlled. We will continue to offer pain medication as negra cated. We will offer non-medication therapies as indicated. Safety Patient will be injury free during hospitalization Progressing Patient is utilizing call button and is aware of safety precautions. lan o f Care - Conversion Transaction, Provider Unknown - 10/13/2017 10:38 PM PDTFormatting of thi s note might be different from the original. Plan of Care by Grecia Rangel RN at 10/13/172237 Author: Grecia Rangel RN Service: (none) Author Type: Registered Nurse Filed: 10/13/172238 Date of Service: 10/13/172237 Status: Signed [employer] Driver: Grecia Rangel RN (Registered Nurse) Pain Patient's pain/discomfort is manageable Progressing Pt asleep, will reassess and medicate PRN, currently does not c/o RUE pain Safety Patient will be injury free during hospitalization Progressing Call light and bedside table within reach, non skid socks on while OOB, bed in lowest posit ion lan o f Care - Conversion Transaction, Provider Unknown - 10/13/2017 11:21 AM PDTFormatting of thi s note might be different from the original. Plan of Care by Maude Toussaint RN at 10/13/171120 Author: Maude Toussaint RN Service: (none) Author Type: Registered Nurse Filed: 10/13/171120 Date of Service: 10/13/171120 Status: Signed [employer] Driver: Maude Toussaint RN (Registered Nurse) Daily Care Daily care needs are met Progressing Infection Signs and symptoms of infections are decreased or avoided Progressing Safety Patient will be injury free during hospitalization Progressing Call light within reach. Bed in lowest, locked position. lan o f Care - Conversion Transaction, Provider Unknown - 10/12/2017 9:19 PM PDTFormatting of thi s note might be different from the original. Plan of Care by Rhoda Reyes RN at 10/12/172118 Author: Rhoda Reyes RN Service: (none) Author Type: Registered Nurse Filed: 10/12/172150 Date of Service: 10/12/172118 Status: Signed [employer] Driver: Rhoda Reyes RN (Registered Nurse) Daily Care Daily care needs are met Progressing Infection Signs and symptoms of infections are decreased or avoided Progressing Safety Patient will be injury free during hospitalization Progressing Patient calls appropriately, call light within reach, skid socks on, area free of clutter, bed in lowest position. lan o f Care - Conversion Transaction, Provider Unknown - 10/12/2017 1:26 PM PDTFormatting of thi s note might be different from the original. Plan of Care by Tanya Doyle RN at 10/12/171325 Author: Tanya Doyle RN Service: (none) Author Type: Registered Nurse Filed: 10/12/171325 Date of Service: 10/12/171325 Status: Signed [employer] Driver: Tanya Doyle RN (Registered Nurse) Problem: Safety Goal: Patient will be injury [...] and non-skid footwear provided. Outcome: Progressing Pt calls appropriately, call light in reach, non skid socks on, bed in the low and locked p osition. lan o f Care - Conversion Transaction, Provider Unknown - 10/11/2017 10:46 PM PDTFormatting of thi s note might be different from the original. Plan of Care by Steve Haile RN at 10/11/172245 Author: Steve Haile RN Service: (none) Author Type: Registered Nurse Filed: 10/11/172246 Date of Service: 10/11/172245 Status: Signed [employer] Driver: Steve Haile RN (Registered Nurse) Daily Care Daily care needs are met Progressing Patient able to make needs known and complete ADLs with assistance of spouse. Infection Signs and symptoms of infections are decreased or avoided Progressing Safety Patient will be injury free during hospitalization Progressing Patient educated about use of IS 10 x per hour during waking hours. Patient educated about AROM/PROM, ambulation, and effects of bedrest. Patient educated about DVT prophylaxis, SCDs, compression stockings, and prescribed medicat ions as applicable. Call light within reach, bed in lowest and locked position, and rails up as appropriate. p Not e - Sill, Jimenze Driscoll MD - 10/11/2017 11:05 AM PDTFormatting of this note might be differ ent from the original. Brief Op Note by Jimenez Garnica MD PhD at 10/11/17 1105 Author: Jimenez Garnica MD PhD Service: Interventional Radiology Author Type: Physician Filed: 10/11/17 1110 Date of Service: 10/11/17 110 Status: Signed [employer] Driver: Jimenez Garnica MD PhD (Physician) Interventional Radiology Post Procedure Note Patient Name: Carol Potter Date of : 1965 Procedure(s): Right arm fistulagram, right subclavian/innominate recanalization/angioplasty and placement of tunneled dialysis catheter Pre OP Diagnosis: Right subclavian/innominate venous occlusion, ESRD Post OP Diagnosis: same Chemical Recovery Operator: Jimenez Garnica MD Anesthesia Type: IV Conscious Sedation with Fentanyl and Versed. Findings: Right subclavian/innominate existing venous stents occlusion recanalized and prol onged dilatation with 10 mm angioplasty balloons. Left temporary dialysis catheter converted to 23 cm tip to cuff Palindrome tunneled dialysis catheter with tip in upper right atrium. Specimens: none EBL: none Complications: None PLAN: Dialysis catheter ready for use tip position confirmed. When swelling subsides, resum e use of right arm fistula. Lifelong anticoagulation. A full report will follow in the imaging section. Jimenez Garnica MD, PhD Interventional Radiologist and Vascular Medicine Specialist lan of Care - C onversion Transaction, Provider Unknown - 10/10/2017 11:22 PM PDTFormatting of this note kel ht be different from the original. Plan of Care by Eri Clinton RN at 10/10/17 7255 Author: Eri Clinton RN Service: (none) Author Type: Registered Nurse Filed: 10/10/17 9379 Date of Service: 10/10/17 232 Status: Signed [employer] Driver: Eri Clinton RN (Registered Nurse) Daily Care Daily care needs are met Progressing Patient calls appropriately for any needs. Infection Signs and symptoms of infections are decreased or avoided Progressing Safety Patient will be injury free during hospitalization Progressing lan o f Care - Conversion Transaction, Provider Unknown - 10/10/2017 11:05 AM PDTFormatting of thi s note might be different from the original. Plan of Care by Tanya Doyle RN at 10/10/171104 Author: Tanya Doyle RN Service: (none) Author Type: Registered Nurse Filed: 10/10/171104 Date of Service: 10/10/171104 Status: Signed [employer] Driver: Tanya Doyle RN (Registered Nurse) Problem: Safety Goal: Patient will be injury [...] and non-skid footwear provided. Outcome: Progressing Pt calls appropriately, call light in reach, bed in the low and locked position. lan o f Care - Conversion Transaction, Provider Unknown - 10/10/2017 1:25 AM PDTFormatting of thi s note might be different from the original. Plan of Care by Eri Clinton RN at 10/10/17124 Author: Eri Clinton RN Service: (none) Author Type: Registered Nurse Filed: 10/10/17124 Date of Service: 10/10/17124 Status: Signed [employer] Driver: Eri Clinton RN (Registered Nurse) Daily Care Daily care needs are met Progressing Patient calls for any needs. Infection Signs and symptoms of infections are decreased or avoided Progressing Safety Patient will be injury free during hospitalization Progressing lan o f Lainey - Dionne Minor MD - 10/09/2017 10:50 PM PDTFormatting of this note might be differ ent from the original. Plan of Care by Dionne Minor MD at 10/09/17 181 Author: Dionne Minor MD Service: Hospitalist Author Type: Physician Filed: 10/10/17 0005 Date of Service: 10/09/172249 Status: Signed [employer] Driver: Dionen Minor MD (Physician) RAT called. Patient with uncontrolled RUE pain with numbness tingling with worsening swelli ng. Patient admitted for RUE cellulitis. 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 He was recommended to start AC at that t jelani. I have ordered oral morphine and xanax due to anxiety with improvement on pain. US veno us upper extremity shows no evidence of DVT. Have start heparin gtt for worsening thrombosis once IV access has been obtained. Patient had similar episode yesterday. Currently no clear signs of compartment syndrome, he has faint palpable pulse. But will he has worsening pain, surgery may need to be consulted for evaluation along with MRI. Dionne Minor MD lan of Ellie Nichols MD - 10/09/2017 1:15 PM PDTFormatting of this note might be different from th e original. Plan of Care by Khanh Rangel MD at 10/09/17 1315 Author: Khanh Rangel MD Service: Hospitalist Author Type: Physician Filed: 10/09/17 1329 Date of Service: 10/09/17 1315 Status: Signed [employer] Driver: Khanh Rangel MD (Physician) Encountered and examined patient in room 423 with . Patient is getting dialysis. Rounding w [facility] team. I agree with Dr. Barrow's progress note in its assessment and plan. Right upper extremity is with persistent tense edematous, but no erythema. Increasing range of motion of the right hand due to edema. Left IJ hemodialysis catheter. Left antecubital IV. Chronic scaling of bilateral lower extremities. Chronic kidney disease: Discussed in person with Dr. Soria briefly today. Right upper extremity cellulitis; resolved. More likely to be of hematoma from previous ratna lysis access. Continue with cefepime day #2. Status post vancomycin and ceftazidime day 1. Dr. Crespo following. But there's no signs of current infection at this time. lan of C are - Conversion Transaction, Provider Unknown - 10/09/2017 11:01 AM PDTFormatting of this n ote might be different from the original. Plan of Care by Mihir Dan RN at 10/09/17 110 Author: Mihir Dan RN Service: (none) Author Type: Registered Nurse Filed: 10/09/171100 Date of Service: 10/09/171100 Status: Signed [employer] Driver: Mihir Dan RN (Registered Nurse) Daily Care Daily care needs are met Progressing Infection Signs and symptoms of infections are decreased or avoided Progressing Safety Patient will be injury free during hospitalization Progressing p Not e - Danika, Jimenez Driscoll MD - 10/09/2017 8:51 AM PDTFormatting of this note might be differ ent from the original. Brief Op Note by Jimenez Garnica MD PhD at 10/09/17850 Author: Jimenez Garnica MD PhD Service: Interventional Radiology Author Type: Physician Filed: 10/09/17 0858 Date of Service: 10/09/17850 Status: Signed [employer] Driver: Jimenez Garnica MD PhD (Physician) Interventional Radiology Post Procedure Note Patient Name: Carol Potter Date of : 1965 Procedure(s): Left brachiocephalic/SVC gram, left brachiocephalic angioplasty and SVC fibri n sheath stripping, replacement of temporary dialysis catheter. Pre OP Diagnosis: Nonfunctioning left IJ dialysis catheter Post OP Diagnosis: same Chemical Recovery Operator: Jimenez Garnica MD Anesthesia Type: IV Conscious Sedation with Fentanyl and Versed. Findings: Existing 12 Fr Mahurkar catheter exchanged over wire to new catheter which also w ould not draw on arterial port. 11 Fr sheath placed and venogram demonstated thrombus/occlus ion of confluence of innominate veins into upper SVC. Angioplastied left innominate and fibr in sheath stripping of SVC with 8 mm balloon followed by 12 mm angioplasty of the left innom inate vein/SVC with samaritan of flow. New 12 Fr Mahurkar placed with tip at cavoatrial ju nction with good flow in all ports, packed with heparin. Specimens: none EBL: minimal Complications: None PLAN: Ready for dialysis; tip position confirmed. A full report will follow in the imaging section. Jimenez Garnica MD, PhD Interventional Radiologist and Vascular Medicine Specialist iscellaneous - Sill, Jimenez Driscoll MD - 10/09/2017 7:30 AM PDT Treatment Plan by Jimenez Garnica MD PhD at 10/09/17729 Author: Jimenez Garnica MD PhD Service: Interventional Radiology Author Type: Physician Filed: 10/09/17731 Date of Service: 10/09/17729 Status: Signed [employer] Driver: Jimenez Garnica MD PhD (Physician) Moderate Sedation Presedation Assessment completed. The patient was reassessed immediately prior to sedation with no significant clinical cuadra es in the exam, including heart and lungs, since the completion of H&P ASA Classification: ASA 3: Patient with a severe systemic disease Mallampati Classification: III: Soft and hard palate and base of the uvula are visible Right arm remains indurated with swelling, but non tender. Left IJ temp cath in place. Will proceed with temporary dialysis catheter exchange as planned. lan of Care - C onversion Transaction, Provider Unknown - 10/08/2017 8:25 PM PDTFormatting of this note kel ht be different from the original. Plan of Care by Steve Haile RN at 10/08/172024 Author: Steve Haile RN Service: (none) Author Type: Registered Nurse Filed: 10/08/172024 Date of Service: 10/08/172024 Status: Signed [employer] Driver: Steve Haile RN (Registered Nurse) Daily Care Daily care needs are met Progressing Patient states his ability to ambulate and perform ADLs is improving daily. He is able to m vaughn needs known adequately. Infection Signs and symptoms of infections are decreased or avoided Progressing Safety Patient will be injury free during hospitalization Progressing Patient educated about use of IS 10 x per hour during waking hours. Patient educated about AROM/PROM, ambulation, and effects of bedrest. Patient educated about DVT prophylaxis, SCDs, compression stockings, and prescribed medicat ions as applicable. Call light within reach, bed in lowest and locked position, and rails up as appropriate. lan o f Care - Conversion Transaction, Provider Unknown - 10/08/2017 12:13 PM PDTFormatting of thi s note might be different from the original. Plan of Care by Ronit Wesley RN at 10/08/173 Author: Ronit Wesley RN Service: (none) Author Type: Registered Nurse Filed: 10/08/173 Date of Service: 10/08/171212 Status: Signed [employer] Driver: Ronit Wesley RN (Registered Nurse) Daily Care Daily care needs are met Progressing Infection Signs and symptoms of infections are decreased or avoided Progressing Safety Patient will be injury free during hospitalization Progressing lan o f Care - Conversion Transaction, Provider Unknown - 10/07/2017 10:36 PM PDTFormatting of thi s note might be different from the original. Plan of Care by Valencia Ortiz RN at 10/07/172235 Author: Valencia Ortiz RN Service: (none) Author Type: Registered Nurse Filed: 10/07/172236 Date of Service: 10/07/172235 Status: Signed [employer] Driver: Valencia Ortiz RN (Registered Nurse) Daily Care Daily care needs are met Progressing Infection Signs and symptoms of infections are decreased or avoided Progressing Safety Patient will be injury free during hospitalization Progressing Patient using call light appropriately at this time. VSS will continue to monitor for s/s of infection. lan o f Care - Conversion Transaction, Provider Unknown - 10/07/2017 6:00 PM PDTFormatting of thi s note might be different from the original. Plan of Care by Carola Herrmann RN at 10/07/17 1800 Author: Carola Herrmann RN Service: (none) Author Type: Registered Nurse Filed: 10/07/17 1800 Date of Service: 10/07/17 1800 Status: Signed [employer] Driver: Carola Herrmann RN (Registered Nurse) Patient will be injury free during hospitalization Progressing Call light in place. Instructed patient to use when assistance is needed. CAROLA HERRMANN RN 10/07/2017 6:00 PM lan o f Care - Sill, Jimenez Driscoll MD - 10/07/2017 12:33 PM PDTFormatting of this note might be d ifferent from the original. ACP (Advance Care Planning) by Jimenez Garnica MD PhD at 10/07/17 1233 Author: Jimenez Garnica MD PhD Service: Interventional Radiology Author Type: Physician Filed: 10/07/17 1238 Date of Service: 10/07/17 1233 Status: Signed [employer] Driver: Jimenez Garnica MD PhD (Physician) Interventional Radiology Post Procedure Note Patient Name: Carol Potter Date of : 1965 Procedure(s): Left IJ vein temporary dialysis catheter placement and right arm soft tissue fluid aspiration Pre OP Diagnosis: Right arm abscess Post OP Diagnosis: same Chemical Recovery Operator: Jimenez Garnica MD Anesthesia Type: IV Conscious Sedation with Fentanyl and Versed. Findings: Freelance Photographer fluoroscopic image demonstrates unchanged position of right subclavian/inno minate stents. Left IJ vein ultrasound access followed by fluoroscopic placement of 20 cm Ma hurkar temporary dialysis catheter. Right arm prepped and ultrasound guided fluid aspiration of dark bloody fluid c/w hematoma adjacent to fistula Specimens: 20 cc sample of right arm fluid aspirate sent for culture EBL: none Complications: None PLAN: Cultures pending. When infection clears, consider tunneled dialysis catheter versus r ight subclavian/innominate recanalization probably some time next week. A full report will follow in the imaging section. Jimenez Garnica MD, PhD Interventional Radiologist and Vascular Medicine Specialist documented in th is encounter Plan of Treatment Not on filedocumented [...] | ECG 12 LEAD | Routin | 10/15/2017 | | Results for this | | | e | 11:45 PM | | procedure are in the [...] + | VANCOMYCIN, TROUGH | Routin | 10/12/2017 | | [...] | ECG 12 LEAD | Routin | 10/08/2017 | | Results [...] | ECG 12 LEAD | Routin | 10/07/2017 | | Results for this | | | e | 3:30 AM | | procedure are in the [...] | | | | | performed at [facility] [place];[facility] | | | | | | [address] [facility];[place], [place] | | | | | | [address] | | | | + + + [...] + + + | Non- | 3.28 (L) | 4.20 - 5.70 | EXTERNAL | | | Red Blood | | M/uL | LAB | | | Cells | | | | | | Counted | | | | | + + + + + + | Hemoglobin | 9.3 (L) | 13.2 - 17.0 [...] | | | Basophils | performed at [facility], [address] | K/uL | LAB | | | | [address], | | | | | | [place] [address] | | | | + + + [...] | | | | | [place] [address] | | | | + + + [...] EXTERNAL | | | | performed at [facility], [address] | | LAB | | | | [address], | | | | | | [place] [address] | | | | + + + [...] | | | | | | at [facility], [address] | | | | | | [address], | | | | | | [place] [address] | | | | + + + [...] | LAB | | | | FAUSTINO ROSS | | | | | | 0830T,JBREAD BACK | | | | | | RESULTS VERIFIEDTesting | | | | | | performed at [facility];[address] | | | | [address];[place], [place] | | | | | | [address] | | | | + + + [...] | | | | | performed at [facility] [place] [facility] | | | | | | [address] [facility];[place], [place] | | | | | | [address] | | | | + + + [...] + + + | Hemoglobin | 8.7 (L) | 13.2 - 17.0 [...] | | | Basophils | performed at [facility], [address] | K/uL | LAB | | | | [address], | | | | | | [place] [address] | | | | + + + [...] EXTERNAL | | | | performed at [facility];[address] | | LAB | | | | [address];[place] | | | | | | [address] | | | | + + + [...] EXTERNAL | | | | performed at [facility];[address] | | LAB | | | | [address];[place], [place] | | | | | | [address] | | | | + + + [...] | | | Random | performed at [facility] | | LAB | | | | [address];[place], [place] | | | | | | [address] | | | | + + + [...] | | | | | | at [facility] [address] | | | | | | [facility];[place] [address] | | | | + + + [...] | | | Patient | performed at [facility];[address] | | LAB | | | | [address];[place], [place] | | | | | | [address] | | | | + + + [...] | | | Patient | performed at [facility];[address] | | LAB | | | | [address];[place], [place] | | | | | | [address] | | | | + + + [...] | | | Patient | performed at [facility];[address] | | LAB | | | | [address];[place] | | | | | | [address] | | | | + + + [...] | | Fingerstick | performed at [facility] | | LAB | | | | [address];[place], [place] | | | | | | [address] | | | | + + + [...] | | | Patient | performed at [facility];[address] | | LAB | | | | [address];[place], [place] | | | | | | [address] | | | | + + + + + + + + | Specimen | + + | | + + + +---------+ + + | Performing | Address | City/State/Zipcode | Phone Number | | Organization | | | | + +---------+ + + | EXTERNAL LAB | | | | + +---------+ + + Protime INR (10/17/2017 3:14 AM PDT) + + [...] | | | | | performed at [facility] [place];[facility] | | | | | | [facility];[place], [place] | | | | | | [address] | | | | + + + [...] + + + + | Non- | 3.19 (L) | 4.20 - 5.70 | EXTERNAL | | | Red Blood | | M/uL | LAB | | | Cells | | | | | | Counted | | | | | + + + + + + | Hemoglobin | 9.4 (L) | 13.2 - 17.0 [...] LAB | | | | performed at [facility], [address] | | | | | | [address], | | | | | | [place] [address] | | | | | | | [...] EXTERNAL | | | | performed at [facility], [address] | | LAB | | | | [address], | | | | | | [place] [address] | | | | + + + [...] EXTERNAL | | | | performed at [facility], [address] | | LAB | | | | [address], | | | | | | [place] [address] | | | | + + + [...] | | | | | [place] [address] | | | | + + + [...] | | | | | performed at [facility];[address] | | | | | | [address];[place] | | | | | | [address] | | | | + + + [...] | | | Patient | performed at [facility];[address] | | LAB | | | | [address];[place], [place] | | | | | | [address] | | | | + + + [...] | | | | | | ACUTE PR Testing | | | | | | performed at [facility] | | | | | | [facility];[place] | | | | | | [address] | | | | + + + [...] | | | | | | IN SURG AT 0605 BY | | | | | | TDTesting performed at | | | | | | [facility];[address] | | | | | | [facility];[place] [address] | | | | + + + [...] | | | | | performed at [facility];[address] | | | | | | [facility];[place], [place] | | | | | | [address] | | | | + + + [...] | | | | | | ACUTE PR Testing | | | | | | performed at [facility];[address] | | | | | | [facility];[place], [place] | | | | | | [address] | | | | + + + [...] + + + | Non- | 3.50 (L) | 4.20 - 5.70 | EXTERNAL | | | Red Blood | | M/uL | LAB | | | Cells | | | | | | Counted | | | | | + + + + + + | Hemoglobin | 9.8 (L) | 13.2 - 17.0 [...] | | LAB | | | | [facility];[address] [facility] | | | | | | Blvd;[place] [address] | | | | + + + [...] EXTERNAL | | | | performed at [facility];[address] | | LAB | | | | [address]aan [address];[place] | | | | | | [address] | | | | + + + [...] LAB | | | | performed at [facility];[address] | | | | | | [address];[place], [place] | | | | | | [address] | | | | + + + [...] | | | | | | at [facility];[address] [place] [address] | | | | | | [facility];[place] [address] | | | | + + + [...] 1:33AM | | | Referring Provider Line: [phone] ID: [id number] | | + + + [...] Palm Conversion - 02/04/2019 8:18 AM PDT EXAM:CHEST [...] 2017 | | 1:33AM Referring Provider Line: [phone] ID: [id number] | | | |FINDINGS: | [...] 16 2017 1:33AM Referring Provider Line: [phone] ID: [id number] | + + ECG 12 lead (10/15/2017 11:45 PM PDT) + + + + + + | Component | Value | Ref Range | Performed | Pathologist | | | | | At | Signature | + + + + + + | DIAGNOSIS: | Sinus rhythm with 1st | | EXTERNAL | | | | degree A-V blockLow | | LAB | | | | voltage QRSBorderline | | | | | | ECGWhen compared with | | | | | | ECG of 08-OCT-2017 | | | | | | 06:16,Nonspecific T wave | | | | | | abnormality, improved | | | | | | in Anterior | | | | | | leadsConfirmed by | | | | | | FABIAN DALTON ([id number]) on | | | | | | 10/16/2017 10:46:13 AM | | | | + + [...] | + +---------+ + + Troponin I (10/15/2017 10:50 PM [...] | | | | | | ACUTE PR Testing | | | | | | performed at [facility];[address] | | | | | | [facility];[place], [place] | | | | | | [address] | | | | + + + [...] | | | Patient | performed at [facility];[address] | | LAB | | | | [address]aan [address];[place] | | | | | | [address] | | | | + + + [...] | | | Patient | performed at [facility];[address] | | LAB | | | | [address];[place], [place] | | | | | | [address] | | | | + + + [...] RESULTS | | | | | | VERIFIEDSUJABARI/CAROLA Yang AT | | | | | | 1522 BY SALTesting | | | | | | performed at [facility];[address] | | | | | | [address];[place] | | | | | | [address] | | | | + + + [...] | | | Patient | performed at [facility];[address] | | LAB | | | | [address];[place] | | | | | | [address] | | | | + + + [...] | | | | | performed at [facility];[address] | | | | | | [address] [facility];[place], [place] | | | | | | [address] | | | | + + + [...] + +---------+ + + External Lab: REBECA (10/15/2017 5:56 AM PDT) + + +---- [...] + + +---- + + + | Non- | 3.44 (L) | 4.2 0 - 5.70 | EXTERNAL | | | Red Blood | | M/u L | LAB | | | Cells | | | | | | Counted | | | | | + + +---- + + + | Hemoglobin | 9.8 (L) | 13. 2 - [...] | | | | | | at [facility], [address] | | | | | | [facility], | | | | | | [place] [address] | | | | | |Testing performed at [facility], [address] [place] [address] | | | | | | | [...] | | | | | [place] [address] | | | | + + + [...] EXTERNAL | | | | performed at [facility], [address] | | LAB | | | | [address], | | | | | | [place] [address] | | | | + + + [...] | | | | | | at [facility], [address] | | | | | | [place]anna [place], | | | | | | [place] [address] | | | | + + + [...] | | | Random | performed at [facility];[address] | | LAB | | | | [address];[place], [place] | | | | | | [address] | | | | + + + [...] | | | Patient | performed at [facility];[address] | | LAB | | | | [address] Jeffrey;[place] | | | | | | [address] | | | | + + + [...] + + + + | Non- | 3.35 (L) | 4.20 - 5.70 | EXTERNAL | | | Red Blood | | M/uL | LAB | | | Cells | | | | | | Counted | | | | | + + + + + + | Hemoglobin | 9.4 (L) | 13.2 - 17.0 [...] | | | Basophils | performed at [facility];[address] | K/uL | LAB | | | | Ishaan Jeffrey;[place] | | | | | | [address] | | | | + + + [...] EXTERNAL | | | | performed at [facility] | | LAB | | | | [address];[place], [place] | | | | | | [address] | | | | + + + [...] EXTERNAL | | | | performed at [facility];[address] | | LAB | | | | Ishaan Jeffrey;[place] | | | | | | [address] | | | | + + + [...] | | | | | | BY [employer] BACK RESULTS | | | | | | VERIFIEDTesting | | | | | | performed at [facility];[address] | | | | | | [address];[place], [place] | | | | | | [address] | | | | + + + [...] | | | | | | at [facility];[address] | | | | | | [address];[place] [address] | | | | + + + [...] Khalif Palm - 02/04/2019 8:18 AM PDT HISTORY: 52 [...] | | | Patient | performed at [facility];[address] | | LAB | | | | [address];[place], [place] | | | | | | [address] | | | | + + + [...] | | | Patient | performed at [facility];[address] | | LAB | | | | [address];[place], [place] | | | | | | [address] | | | | + + + [...] + + + + | Non- | 3.17 (L) | 4.20 - 5.70 | EXTERNAL | | | Red Blood | | M/uL | LAB | | | Cells | | | | | | Counted | | | | | + + + + + + | Hemoglobin | 9.3 (L) | 13.2 - 17.0 [...] at | | | | | | [facility], [address] [facility] | | | | | | [place] | | | | | | [address] | | | | + + + [...] EXTERNAL | | | | performed at [facility], [address] | | LAB | | | | Janna [place], | | | | | | [place] [address] | | | | + + + [...] EXTERNAL | | | | performed at [facility], [address] | | LAB | | | | Janna Smith, | | | | | | [place] [address] | | | | + + + [...] | | | | | [place] [address] | | | | + + + [...] | | | Patient | performed at [facility];[address] | | LAB | | | | [address];[place], [place] | | | | | | [address] | | | | + + + [...] | | | Patient | performed at [facility];[address] | | LAB | | | | [address];[place] | | | | | | [address] | | | | + + + [...] | | | | | MANAS IN [facility] AT | | | | | | 0946 BY LGJTesting | | | | | | performed at [facility] | | | | | | [address] [facility];[place], [place] | | | | | | [address] | | | | + + + [...] | | | Patient | performed at [facility];[address] | | LAB | | | | [address];[place], [place] | | | | | | [address] | | | | + + + [...] + + + + | Non- | 3.32 (L) | 4.20 - 5.70 | EXTERNAL | | | Red Blood | | M/uL | LAB | | | Cells | | | | | | Counted | | | | | + + + + + + | Hemoglobin | 9.5 (L) | 13.2 - 17.0 [...] | | | Basophils | performed at [facility], [address] | K/uL | LAB | | | | Janna [address], | | | | | | [place] [address] | | | | + + + [...] EXTERNAL | | | | performed at [facility], [address] | | LAB | | | | Janna [address], | | | | | | [place] [address] | | | | + + + [...] EXTERNAL | | | | performed at [facility], [address] | | LAB | | | | [place]anna [place], | | | | | | [place] [address] | | | | + + + [...] | | | | | | at [facility], [address] | | | | | | [facility], | | | | | | [place] [address] | | | | + + + [...] | | | Patient | performed at [facility];[address] | | LAB | | | | [address];[place], [place] | | | | | | [address] | | | | + + + [...] BY:SURG | | | | | | SARAY/RONIT T @18:31, | | | | | | MYVTesting performed at | | | | | | [facility];[address] [place] [address] | | | | | | Blvd;[place] [address] | | | | + + + [...] 10/07/2017 and 10/09/2017 | | | PRIMARY MOTORCYCLE BUILDER: Jimenez Garnica MD, PhD, RPVI OPERATIONS: | [...] wire | | | for a 6 Guinean 35 cm sheath which was advanced to [...] subclavian diameter stents | | | with samaritan of flow. The wire was left in [...] support wire and exchanged to an 816 Guinean peel-away sheath. The | | | wire [...] | | innominate venous stents, there is samaritan of vigorous flow with | | | [...] STUDIES: 10/07/2017 | | and 10/09/2017 PRIMARY MOTORCYCLE BUILDER: Jimenez Garnica MD, PhD, RPVI OPERATIONS:Limited | [...] exchanged over a wire for a 6 Guinean 35 cm sheath which was advanced to | | the level of the subclavian occlusion. Patient was heparinized. The occlusion was | | crossed with an angled glide catheter and wire. Next multiple 10 mm angioplasty balloons | | were used for sequential and repeated prolonged dilation of the 14 mm innominate and 12 | | mm subclavian diameter stents with samaritan of flow. The wire was left in [...] support wire and exchanged to an 816 Guinean peel-away sheath. The wire was exchanged to [...] subclavian and innominate venous stents, there is samaritan of vigorous flow with no | | [...] 10/07/2017 and 10/09/2017 | | | PRIMARY MOTORCYCLE BUILDER: Jimenez Garnica MD, PhD, RPVI OPERATIONS: | [...] wire | | | for a 6 Guinean 35 cm sheath which was advanced to [...] subclavian diameter stents | | | with samaritan of flow. The wire was left in [...] support wire and exchanged to an 816 Guinean peel-away sheath. The | | | wire [...] | | innominate venous stents, there is samaritan of vigorous flow with | | | [...] STUDIES: 10/07/2017 | | and 10/09/2017 PRIMARY MOTORCYCLE BUILDER: Jimenez Garnica MD, PhD, RPVI OPERATIONS:Limited | [...] exchanged over a wire for a 6 Guinean 35 cm sheath which was advanced to | | the level of the subclavian occlusion. Patient was heparinized. The occlusion was | | crossed with an angled glide catheter and wire. Next multiple 10 mm angioplasty balloons | | were used for sequential and repeated prolonged dilation of the 14 mm innominate and 12 | | mm subclavian diameter stents with samaritan of flow. The wire was left in [...] support wire and exchanged to an 816 Guinean peel-away sheath. The wire was exchanged to [...] subclavian and innominate venous stents, there is samaritan of vigorous flow with no | | [...] | | Fingerstick | performed at [facility];[address] | | LAB | | | | [address];[place] | | | | | | [address] | | | | + + + [...] | | | Patient | performed at [facility];[address] | | LAB | | | | [address];[place], [place] | | | | | | [address] | | | | + + + [...] + +---------+ + + External Lab: REBECA (10/11/2017 5:28 AM PDT) + + + [...] + + + + | Non- | 3.48 (L) | 4.20 - 5.70 | EXTERNAL | | | Red Blood | | M/uL | LAB | | | Cells | | | | | | Counted | | | | | + + + + + + | Hemoglobin | 10.1 (L) | 13.2 - 17.0 [...] | | | Basophils | performed at [facility], [address] | K/uL | LAB | | | | [place]anna [place], | | | | | | [place] [address] | | | | + + + [...] EXTERNAL | | | | performed at [facility], [address] | | LAB | | | | [place]anna [place], | | | | | | [place] [address] | | | | + + + [...] EXTERNAL | | | | performed at [facility], [address] | | LAB | | | | Janna [address], | | | | | | [place] [address] | | | | + + + [...] Jeffrey, | | | | | | [place] [address] | | | | + + + [...] | | | Patient | TO ALVIN Warren ON SURG AT | | LAB | | | | 2250 BY CD, READ | | | | | | BACKTesting performed at | | | | | | [facility];[address] | [address] | | | [address];[place] [address] | | | | + + + [...] | | Fingerstick | performed at [facility];[address] | | LAB | | | | [address];[place], [place] | | | | | | [address] | | | | + + + [...] | | Fingerstick | performed at [facility];[address] | | LAB | | | | [address] Jeffrey;[place] | | | | | | [address] | | | | + + + [...] | | | Patient | performed at [facility];[address] | | LAB | | | | [address];[place], [place] | | | | | | [address] | | | | + + + [...] | | Fingerstick | performed at [facility];[address] | | LAB | | | | [address];[place], [place] | | | | | | [address] [...] | | | S AT 0705 BY HECTOR BACK | | | | | | RESULTS VERIFIEDTesting | | | | | | performed at [facility];[address] | | | | | | [address];[place] | | | | | | [address] | | | | + + + [...] + + + + | Non- | 3.56 (L) | 4.20 - 5.70 | EXTERNAL | | | Red Blood | | M/uL | LAB | | | Cells | | | | | | Counted | | | | | + + + + + + | Hemoglobin | 10.4 (L) | 13.2 - 17.0 [...] | | | Basophils | performed at [facility], [address] | K/uL | LAB | | | | Janna [address], | | | | | | [place] [address] | | | | + + + [...] | | | | | [place] [address] | | | | + + + [...] EXTERNAL | | | | performed at [facility], [address] | | LAB | | | | Janna [address], | | | | | | [place] [address] | | | | + + + [...] | | | | | | at [facility], [address] | | | | | | [place]anna [address], | | | | | | [place] [address] | | | | + + + [...] | | Fingerstick | performed at [facility];[address] | | LAB | | | | [address];[place], [place] | | | | | | [address] | | | | + + + [...] + ---------+ | Khalif Palm Conversion - 02/04/2019 8:18 [...] | | Fingerstick | performed at [facility];[address] | | LAB | | | | [address];[place], [place] | | | | | | [address] | | | | + + + [...] | | Fingerstick | performed at [facility];[address] | | LAB | | | | [address];[place] | | | | | | [address] | | | | + + + [...] | angioplasty and fibrin sheath stripping with samaritan of flow. | | | Replacement of [...] 10/07/2017 and others | | | PRIMARY MOTORCYCLE BUILDER: Jimenez Garnica MD, PhD, VI OPERATIONS: | [...] | | fashion about the left neck. Freelance Photographer fluoroscopic image was obtained | | | [...] | | was removed and a 11 Guinean sheath was placed. Venogram imaging the | [...] confluence. Follow-up venogram | | | demonstrated samaritan of vigorous flow with some AP attenuation | | | at the innominate confluence. The new Mahurkar catheter was readvanced | | | and [...] | | | Following interventions, there is samaritan of flow through the left | | [...] images 10/07/2017 and others PRIMARY | | MOTORCYCLE BUILDER: Jimenez Garnica MD, PhD, RPVI OPERATIONS:1. Replacement of temporary left | | [...] | usual fashion about the left neck. Freelance Photographer fluoroscopic image was obtained showing | | [...] was removed and a 11 | | Guinean sheath was placed. Venogram imaging the left [...] innominate | | confluence. Follow-up venogram demonstrated samaritan of vigorous flow with some AP | | attenuation at the innominate confluence. The new Dentonkar catheter was readvanced and | | positioned [...] | | occlusion. Following interventions, there is samaritan of flow through the left | | [...] and fibrin sheath stripping | | with samaritan of flow. Replacement of temporary left internal [...] | | Fingerstick | performed at [facility];[address] | | LAB | | | | [address];[place], [place] | | | | | | [address] | | | | + + + + + + + + | Specimen | + + | | + + + +---------+ + + | Performing | Address | City/State/Zipcode | Phone Number | | Organization | | | | + +---------+ + + | EXTERNAL LAB | | | | + +---------+ + + External Lab: REBECA (10/09/2017 5:15 AM PDT) + + + [...] + + + + | Non- | 3.60 (L) | 4.20 - 5.70 | EXTERNAL | | | Red Blood | | M/uL | LAB | | | Cells | | | | | | Counted | | | | | + + + + + + | Hemoglobin | 10.6 (L) | 13.2 - 17.0 [...] | | | Basophils | performed at [facility], [address] | K/uL | LAB | | | | [address]anna [address], | | | | | | [place] [address] | | | | + + + [...] EXTERNAL | | | | performed at [facility], [address] | | LAB | | | | Janna [address], | | | | | | [place] [address] | | | | + + [...] EXTERNAL | | | | performed at [facility], [address] | | LAB | | | | Janna [place], | | | | | | [place] [address] | | | | + + + [...] | | | | | | at [facility], [address] | | | | | | [facility], | | | | | | [place] [address] | | | | + + + [...] + + + + | Non- | 3.69 (L) | 4.20 - 5.70 | EXTERNAL | | | Red Blood | | M/uL | LAB | | | Cells | | | | | | Counted | | | | | + + + + + + | Hemoglobin | 10.7 (L) | 13.2 - 17.0 [...] EXTERNAL | | | | performed at [facility];[address] | | LAB | | | | [address];[place], [place] | | | | | | [address] | | | | + + + [...] | | | Patient | performed at [facility];[address] | | LAB | | | | Ishaan Jeffrey;[place] | | | | | | [address] | | | | + + + [...] | | | | | performed at [facility];[address] | | | | | | [facility];[place], [place] | | | | | | [address] | | | | + + + [...] | | Fingerstick | performed at [facility];[address] | | LAB | | | | Ishaan Jeffrey;[place] | | | | | | [address] | | | | + + + [...] rotator cuff | | | impingement Low kiqduo-tt-edjif ratio renders is a low sensitivity | [...] to rotator cuff impingement Low | | bgthnx-jy-vadma ratio renders is a low sensitivity examination. [...] | | Fingerstick | performed at [facility];[address] | | LAB | | | | Ish[address] Jeffrey;[place] | | | | | | [address] | | | | + + + [...] | | Fingerstick | performed at [facility];[address] | | LAB | | | | [address];[place], [place] | | | | | | [address] | | | | + + + + + + + + | Specimen | + + | | + + + +---------+ + + | Performing | Address | City/State/Zipcode | Phone Number | | Organization | | | | + +---------+ + + | EXTERNAL LAB | | | | + +---------+ + + ECG 12 lead (10/08/2017 6:16 AM PDT) + + + + + + | Component | Value | Ref Range | Performed | Pathologist | | | | | At | Signature | + + + + + + | DIAGNOSIS: | Normal sinus rhythmLow | | EXTERNAL | | | | voltage QRSNonspecific T | | LAB | | | | wave | | | | | | abnormalityProlonged | | | | | | QTAbnormal ECGWhen | | | | | | compared with ECG of | | | | | | 07-OCT-2017 03:30,No | | | | | | significant change was | | | | | | foundConfirmed by Elizabeth | | | | | | Marco Antonio CABRERA ([id number]) on | | | | | | 10/08/2017 8:47:05 AM | | | | + + [...] | | Fingerstick | performed at [facility];[address] | | LAB | | | | Ishaan Jeffrey;[place] | | | | | | [address] | | | | + + + [...] + + + + | Non- | 4.09 (L) | 4.20 - 5.70 | EXTERNAL | | | Red Blood | | M/uL | LAB | | | Cells | | | | | | Counted | | | | | + + + + + + | Hemoglobin | 11.9 (L) | 13.2 - 17.0 [...] at | | | | | | [facility], [address] [place] [address] | | | | | | [place] | | | | | | [address] | | | | + + + [...] + + + + + + | TSH | 14.800 (H)Comment: | 0.450 - 5.100 | EXTERNAL | | | | Testing performed at | uIU/mL | LAB | | | | [facility], [address] [facility] | | | | | | [place] | | | | | | [address] | | | | + + + [...] EXTERNAL | | | | performed at [facility], [address] | | LAB | | | | [place]anna [address], | | | | | | [place] [address] | | | | + + + [...] EXTERNAL | | | | performed at [facility], [address] | | LAB | | | | [place], | | | | | | [place] [address] | | | | + + + [...] + + | Hemoglobin | 5.9Comment: The Iranian | 4.0 - 6.0 % | EXTERNAL [...] | | | | | performed at [facility], [address] | | | | | | [facility], | | | | | | [place] [address] | | | | + + + [...] | | | | | | at [facility], [address] | | | | | | [place]anna [place], | | | | | | [place], [place] [address] | | | | + + + [...] | | Fingerstick | performed at [facility];[address] | | LAB | | | | [address];[place], [place] | | | | | | [address] | | | | + + + [...] | | Fingerstick | performed at [facility] | | LAB | | | | Ishaan Jeffrey;[place] | | | | | | [address] | | | | + + + [...] | | Fingerstick | performed at [facility];[address] | | LAB | | | | [address]aan Jeffrey;[place] | | | | | | [address] | | | | + + + [...] | | Fingerstick | performed at [facility];[address] | | LAB | | | | [address];[place], [place] | | | | | | [address] | | | | + + + [...] | | Fingerstick | performed at [facility];[address] | | LAB | | | | Ishaan Jeffrey;[place] | | | | | | [address] | | | | + + + [...] | | | Over the microwire a 5-Guinean micro- sheath was placed. A single | [...] was serially | | | dilated to 12.-Guinean. A 20-cm Paradise Home Propertiesurkar 12-Guinean temporary | | | hemodialysis catheter was [...] a microwire advanced. Over the microwire a 5-Guinean micro- sheath was | | placed. A [...] cava. The tract was serially dilated to 12.-Guinean. A | | 20-cm Mahurkar 12-Guinean temporary hemodialysis catheter was placed. The wire [...] CT arm 10/07/2017 PRIMARY | | | MOTORCYCLE BUILDER: Jimenez Garnica MD, PhD, RPVI OPERATIONS: 1. [...] | | without any color flow. A Kenzei centesis needle was advanced under | | | [...] STUDIES: CT arm | | 10/07/2017 PRIMARY MOTORCYCLE BUILDER: Jimenez Garnica MD, PhD, RPVI OPERATIONS:1. Right [...] | collection without any color flow. A Invoice[employer] needle was advanced under ultrasound | | [...] Palm Conversion - 02/04/2019 8:18 AM PDT This [...] EXTERNAL | | | | performed at [facility];[address] | | LAB | | | | [address];[place], [place] | | | | | | [id number] | | | | + + + [...] | | | Random | performed at [facility] [place];[address] | | LAB | | | | [address];[place] | | | | | | [id number] | | | | + + + [...] | | | PCRAbnormal Testing performed at [facility] [place];[address] [place] [address];[place] [address] | | + + + + +---------+ [...] | previously. RADIA Electronically signed by Favio Abbasi, | | | on Oct 07 2017 4:43AM Referring Provider Line: [phone] | | | ID: [id number] | | [...] | Procedure Note | + -+ | Khalif Palm Conversion - 02/04/2019 8:18 AM PDT EXAM:RIGHT [...] | | 2017 4:43AM Referring Provider Line: [phone] ID: [id number] | |IMPRESSION: | | | [...] 07 2017 4:43AM Referring Provider Tg e: [phone] ID: [id number] | + -+ HISTORICAL LAB [...] + + + -+ | Non- | 3.86 (L) | 4.20 - 5.70 | EXTERNAL | | | Red Blood | | M/uL | LAB | | | Cells | | | | | | Counted | | | | | + + + + + -+ | Hemoglobin | 11.2 (L) | 13.2 - 17.0 [...] | | | | | | ACUTE PR Testing | | | | | | performed at [facility] [place];[address] | | | | | | [facility] [facility];[place], [place] | | | | | | [address] | | | | + + + [...] EXTERNAL | | | | performed at [facility] [place];888 | | LAB | | | | Ishaan Jeffrey;[place], [place] | | | | | | [address] | | | | + + + [...] EXTERNAL | | | | performed at [facility] [place];888 | | LAB | | | | Ishaan Jeffrey;[place] | | | | | | [address] | | | | + + + [...] + +---------+ + + ECG 12 lead (10/07/2017 3:30 AM PDT) + + + + + + | Component | Value | Ref Range | Performed | Pathologist | | | | | At | Signature | + + + + + + | DIAGNOSIS: | Normal sinus rhythmLow | | EXTERNAL | | | | voltage QRSBorderline | | LAB | | | | ECGNo previous ECGs | | | | | | availableThis ECG | | | | | | contains Unconfirmed | | | | | | Interpretation | | | | | | Statements. See ED | | | | | | Record for Physician | | | | | | Interpretation. | | | | | | Confirmed by MUSE READ | | | | | | ONLY, -COMPUTER ([id number]), | | | | | | assignment desk editor Dax Self | | | | | | Aniket ([id number]) on 10/08/2017 | | | | | | 3:41:47 AM | | | | + + + + + + + + | Specimen | + + | | + + + + + | Narrative | Performed At | + + + | Historically converted procedure from [facility] environment | EXTERNAL LAB | + + + + +---------+ + + | Performing | Address | City/State/Zipcode | Phone Number | | Organization | | | | + +---------+ + + | EXTERNAL LAB | | | | + +---------+ + + XR Chest 1 Bj (10/06/2017 1:47 AM PDT) + + | [...]
--- OUTSIDE RECORDS SUMMARY | ~2019-12-30 | XMS | Encounter Summary ---
Demographics + + + | Address | [address] | | | [place] [address] | + + + | Home Phone | | + + + | Preferred Language | Unknown | + + + | Marital Status | Single | + + + | Church Affiliation | Unknown | + + + | Race | or | + + + | Ethnic Group | Not or | + + + Author + + + | Author | [facility] | + + + | Organization | [facility] | + + + | Address | [...] Providers + +------+ + | Care Sales Account Coordinator Name | Role | Phone | + +------+ + | Berenice Hicks | PCP | | + +------+ + Reason for Visit + + + | Reason | Comments | + + + | 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
--- OUTSIDE RECORDS SUMMARY | ~2019-12-30 | XMS | Encounter Summary ---
Demographics + + + | Address | [address] | | | [place] [address] | + + + | Home Phone | | + + + | Preferred Language | Unknown | + + + | Marital Status | Single | + + + | Evangelical Affiliation | Unknown | + + + [...] Team Providers + +------+ + | Care Sheriffs Officer Name | Role | Phone | + +------+ + | Berenice Hicks | PCP | | + +------+ + Encounter Details +--------+--------+ + + + | Date | Type | Department | Care Team | Description | +--------+--------+ + + + | 12/15/ | Travel | | | | | 2020 | | | | | +--------+--------+ + + + Social History + + [...]
--- OUTSIDE RECORDS SUMMARY | ~2019-12-30 | XMS | Encounter Summary ---
Demographics + + + | Address | [address] | | | [place] [address] | + + + | Home Phone [...] + + + | Author | [facility] | | | and [place] | + + + | Organization | [facility] | | [...] Team Providers + +------+ + | Care Hoisting Laborer Name | Role | Phone | + +------+ + PCP | Unavailable | + +------+ + Encounter Details +--------+ + + + + | Date | Type | Department | Care Team | Description | +--------+ + + + + | 12/09/ | Hospital | [facility] | Conversion | End stage renal | | 2015 | Encounter | CENTER [facility]TRA OP | Transaction, | disease (HCC) | | | | [address] | Provider Unknown | | | | | [place], [place] | [phone] | | | | | [address] | | | | | | [phone] | Uriel Sawyer, | | | | | | [address] | | | | | | [place], [place] | | | | | | [address] | | | | | | | [...] 12/09/141947 Date of Service: 12/09/141947 Status: Signed Automobile Insurance Claim Examiner: Gemini Triplett RN (Registered Nurse) Pt resting comfortably, discharge instructions given both written and orally, will d/c by a mbulation when criteria met. Juan Farrar - 12/09/2014 7:00 PM PDTFormatting of this note might be different from the or iginal. 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 DEEPAK HD/UF WELL EPOGEN PER PROTOCOL TO KEEP HGB 10-11 HECTOROL PER PROTOCOL TO KEEP PTH 150-600 COUNSELED ON LOW P DIET/ HIGH PROTEIN DIET documented in this en counter H&P Notes Bhanu Sawyer MD, MD - 12/09/2014 7:40 PM PDTFormatting of this note might be diffe rent from the original. H&P by Uriel Sawyer MD at 12/09/141939 Author: Uriel Sawyer MD Service: Interventional Radiology Author Type: Physician Filed: 12/09/141940 Date of Service: 12/09/141939 Status: Signed Automobile Insurance Claim Examiner: Uriel Sawyer MD (Physician) [facility] Service: Interventional Radiology Admission History & [...] more, no symptoms DVT (deep venous thrombosis) ([facility]) x3 AV fistula ([facility]) lt arm Knee pain, right 07/06/2012 MSSA (methicillin susceptible Staphylococcus aureus) infection 04/11/2012 Anemia due to blood loss 04/30/2012 Amphetamine and other psychostimulant dependence, continuous (HCC) 04/02/2012 Hyperphosphatemia 05/24/2012 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 Rash and nonspecific skin eruption 04/03/2012 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 Neuromuscular disorder ([facility]) neuropathy Hyperkalemia 11/09/2013 Chronic obstructive asthma with exacerbation ([facility]) 10/27/2013 SOB (shortness of breath) 10/27/2013 Diabetes mellitus, type 2 ([facility]) Past Surgical History Procedure Laterality Date Colonoscopy with egd 05/01/2012 Procedure: COLONOSCOPY W/ EGD; Surgeon: John Singleton MD; Location: [facility] ENDOSCOPY; Se rvice: Gastroenterology; Laterality: N/A; Av fistula placement 05/06/2012 Procedure: AV FISTULA; Surgeon: Oskar Meyer MD; Location: [facility] MAIN OR; Service: Vascul ar; Laterality: Left; Left arm possible right Unlisted procedure arthroscopy shoulder rt , ligaments Knee arthroscopy 07/07/2012 Procedure: KNEE - ARTHROSCOPY; Surgeon: Favio Raza MD; Location: [facility] MAIN OR; chidi: Orthopedics; Laterality: Right; After 1530 Catheter removal 07/07/2012 Procedure: DIALYSIS CATHETER REMOVAL; Surgeon: Oskar Meyer MD; Location: [facility] BEDSIDE TX OCEDURE; Service: General; Laterality: Right; perm cath Dialysis fistula creation 07/07/2012 Procedure: DIALYSIS CATHETER INSERTION; Surgeon: Oskar Meyer MD; Location: [facility] BEDSIDE PROCEDURE; Service: General; Laterality: Left; temporary dialysis catheter Av fistula repair 07/11/2012 Procedure: AV FISTULA GRAFT REPAIR/REVISION; Surgeon: Oskar Meyer MD; Location: [facility] N OR; Service: Vascular; Laterality: Left; Superficialization of brachiobasilic fistula and right IJ perm cath insertion Dialysis fistula creation 07/11/2012 Procedure: DIALYSIS CATHETER INSERTION; Surgeon: Oskar Meyer MD; Location: [facility] MAIN OR; Service: Vascular; Laterality: Left; removed dialysis catheter from left neck and placed new on in left chest, attempted in right neck but unable to place Av fistula placement Right 02/09/2014 Procedure: AV FISTULA; Surgeon: Oskar Meyer MD; Location: [facility] MAIN OR; Service: Vascul ar; Laterality: Right; Superficialization of av fistula Right 03/30/2014 Procedure: AV FISTULA - SUPERFICIALIZATION; Surgeon: Oskar Meyer MD; Location: [facility] MAIN OR; Service: Vascular; Laterality: Right; Allergies [...] KIDS. CURRENTLY UNEMPLOYED, BEFOR E WORKED AT [employer] IN [place]. Quit METHAMPHETAMINES PER PATIENT after t he [...] of tonsils, uvula and soft palate Disposition: [facility] Code Status: Prior Primary Care Physician: [facility] Uriel Sawyer MD 12/09/2014 7:40 PM documented i n [...] balloon angioplasty without | | | incidence. [id number], 39538, 47102, 36303-48, 49719-53 | | | | | + + + + + + | Narrative | Performed At | + + + | [facility] 12/09/2014 7:43 PM HISTORY: [...] conscious sedation | | | and independent halfway supervision performed throughout the | | | [...] | | | needle and exchanged for 4-Malawian micropuncture sheath. Initial | | | fistula [...] of the venous | | | lesions. 4-Malawian micropuncture sheath was exchanged for 6-Malawian | | | short sheath over a [...] + | Khalif Palm Conversion - 02/06/2019 3:01 AM PDT [facility] [...] | | adequate conscious sedation and independent halfway supervision performed | | throughout the procedure. [...] accessed using micropuncture needle and exchanged for 4-Malawian micropuncture sheath. | | Initial fistula pressure was obtained and fistulogram obtained from the right cubital | | fossa to the right atrium. Given the focal, preocclusive stenosis in mid arm segment | | the cephalic vein and segmental occlusion of the distal cephalic vein and proximal right | | brachiocephalic vein, I decided to perform angioplasty of the venous lesions. 4-Malawian | | micropuncture sheath was exchanged for 6-Malawian short sheath over a 0.035, angled | [...] | vein using balloon angioplasty without incidence. 14459, 61189, 53275, 59281-14, | | 82390-57 | | | | | + + [...] balloon angioplasty without | | | incidence. 90211, 00552, 41423, 13890-73, 84821-97 | | | | | + + + + + + | Narrative | Performed At | + + + | [facility] 12/09/2014 7:43 PM HISTORY: [...] conscious sedation | | | and independent halfway supervision performed throughout the | | | [...] | | | needle and exchanged for 4-Malawian micropuncture sheath. Initial | | | fistula [...] of the venous | | | lesions. 4-Malawian micropuncture sheath was exchanged for 6-Malawian | | | short sheath over a [...] | | adequate conscious sedation and independent halfway supervision performed | | throughout the procedure. [...] accessed using micropuncture needle and exchanged for 4-Malawian micropuncture sheath. | | Initial fistula pressure was obtained and fistulogram obtained from the right cubital | | fossa to the right atrium. Given the focal, preocclusive stenosis in mid arm segment | | the cephalic vein and segmental occlusion of the distal cephalic vein and proximal right | | brachiocephalic vein, I decided to perform angioplasty of the venous lesions. 4-Malawian | | micropuncture sheath was exchanged for 6-Malawian short sheath over a 0.035, angled | [...] | vein using balloon angioplasty without incidence. [id number], 97655, 02938, 21177-55, | | 66968-32 | | | | | + + documented in this encounter Visit Diagnoses + + | Diagnosis | + + | End stage renal disease (HCC) End stage renal disease | + + documented in this encounter
--- OUTSIDE RECORDS SUMMARY | ~2019-12-30 | XMS | Encounter Summary ---
Demographics + + + | Address | [address] | | | [place] [address] | + + + | Home Phone | | + + + | Preferred Language | Unknown | + + + | Marital Status | Single | + + + | Anabaptism Affiliation | Unknown | + + + | Race | or | + + + | Ethnic Group | Not or | + + + Author + + + | Author | [facility] | + + + | Organization | [facility] [...] Team Providers + +------+ + | Care Emt Basic Name | Role | Phone | + +------+ + | Berenice Hicks | PCP | | + +------+ + Reason for Visit + + + | Reason | Comments | + + + | Phone communication | COVID Clinic Screening questions | + + + Encounter Details +--------+ + + + + | Date | Type | Department | Care Team | Description | +--------+ + + + + | 11/09/ | Telephone | Clinical | Makenna Sheldon, | Phone communication | | 2019 | | Transplant Services | RN [address] | (COVID Clinic | | | | [address] | [address] | Screening questions) | | | | [place], | [place], [place] | | | | | [place] [address] | [address] | | | | | [phone] | | | +--------+ + + + [...]
--- OUTSIDE RECORDS SUMMARY | ~2019-12-30 | XMS | Encounter Summary ---
Demographics + + + | Address | [address] | | | [place] [address] | + + + | Home Phone [...] + + + | Author | [facility] | | | and [place] | + + + | Organization | [facility] | | | [...] Team Providers + +------+ + | Care Selector Packer Name | Role | Phone | + +------+ + PCP | Unavailable | + +------+ + Encounter Details +--------+ + + + + | Date | Type | Department | Care Team | Description | +--------+ + + + + | 10/27/ | Hospital | [facility] | Douglas Mayberry MD | End stage renal | | 2014 - | Encounter | [facility] | [address] | disease (HCC); | | | | CARE FLOOR [address] | [place] [address] | Elevated troponin; | | | | [address] | [phone] | Acute bronchitis; | | 2013 | | [place], [place] | | Anemia of chronic | | | | [address] | | kidney failure; | | | | [phone] | | Chronic obstructive | | | | | | asthma with | | | | | | exacerbation ([facility]); | | | | | | Diabetes mellitus | | | | | | with ESRD (end-stage | | | | | | renal disease) | | | | | | ([facility]); ESRD (end | | | | | | stage renal disease) | | | | | | on dialysis ([facility]); | | | | | | HTN [...] 192 Date of Service: 10/28/131051 Status: Signed Hob Machine Operator: Sowmya Shaikh MD (Physician) Related Notes: Original Note by Sowmya Shaikh MD (Physician) filed at 10/28/13 1058 Patient ID: Enrique Potter [id number] 48 y.o. 1965 Admit date: 10/27/2013 Discharge [...] of 0.13, hence he was transferred to [facility] with asthma exacerbation and abnormal troponin. Otherwise, [...] syndrome. The patient's repeated troponin here in [facility] nter is 0.00. I spent more than 35 minutes on discharge. Discharged Condition: stable Significant Diagnostic Studies: Lab Results Component Value Date WBC 7.7 10/28/2013 HGB 13.4 10/28/2013 HCT 40.3 10/28/2013 MCV 97.2 10/28/2013 PLT 209 10/28/2013 GLUCOSE Date Value Range Status 10/28/2013 189* 65 - 99 mg/dL Final Testing performed at [facility], [address] [place] [address] BUN Date Value Range Status 10/28/2013 55* 8 - 25 mg/dL Final Testing performed at [facility], [address] [place] [address] CREATININE Date Value Range Status 10/28/2013 8.10* 0.70 - 1.30 mg/dL Final Testing performed at [facility], [address] [place] [address] BUN/CREAT Date Value Range Status 10/28/2013 7 Final Testing performed at [facility], [address] [place] [address] TOTAL PROTEIN Date Value Range Status 10/27/2013 7.8 6.3 - 8.2 g/dL Final Testing performed at [facility];[address] [place] [address];[place] [address] GLOBULIN Date Value Range Status 10/27/2013 4.1 1.3 - 4.9 g/dL Final Testing performed at [facility];[address] [place] [address];[place] [address] TBIL Date Value Range Status 10/27/2013 0.7 0.1 - 1.5 mg/dL Final Testing performed at [facility];[address] [place] [address];[place] [address] ALT Date Value Range Status 10/27/2013 36 10 - 65 U/L Final Testing performed at [facility];[address] [place] [address];[place] [address] AST Date Value Range Status 10/27/2013 23 10 - 45 U/L Final Testing performed at [facility];[address] [place] [address] SODIUM Date Value Range Status 10/28/2013 130* 135 - 143 mmol/L Final Testing performed at [address] [address] POTASSIUM Date Value Range Status 10/28/2013 4.1 3.5 - 4.9 mmol/L Final Testing performed at [facility], [address] [place] [address] CHLORIDE Date Value Range Status 10/28/2013 87* 99 - 109 mmol/L Final Testing performed at [address] [address] CO2 Date Value Range Status 10/28/2013 26 23 - 32 mmol/L Final Testing performed at [address] [address] ANION GAP AGAP Date Value Range Status 10/28/2013 21* 5 - 20 mmol/L Final Testing performed at [facility], [address] [place] [address] Xr Chest Ap Portable 10/27/2013 ENRIQUE POTTER [...] Refills: 0 Commonly known as: DORYX ergocalciferol 13360 UNITS capsule Refills: 0 Commonly known as: [...] are the prescriptions that you need to pickling grader. You may get these medications from any pharmacy. albuterol 1.25 MG/3ML nebulizer solution albuterol 108 (90 BASE) MCG/ACT inhaler fluticasone-salmeterol 250-50 MCG/DOSE montelukast 10 MG tablet predniSONE 20 MG tablet Activity: activity as tolerated Diet: renal diet Wound Care: not applicable There are no Patient Instructions on file for this visit. [facility] [address] [place] [address] In 1 week Signed: SOWMYA SHAIKH 10/28/2013 [...] original. Case Management by VANDANA Olivia at 10/28/131610 Author: VANDANA Olivia Service: (none) Author Type: Nematologist Filed: 10/28/13 9103 Date of Service: 10/28/131610 Status: Signed Hob Machine Operator: VANDANA Olivia (Nematologist) Gas voucher provided to Pt's Spouse for transport back to [facility]. Sean Willis MD - 10/28/2013 8:09 AM PDTFormatting of this note might be different from the o riginal. Progress Notes by Sean Solorzano MD at 10/28/13 0809 Author: Sean Solorzano MD Service: Nephrology Author Type: Physician Filed: 10/28/13 1351 Date of Service: 10/28/13808 Status: Signed Hob Machine Operator: Sean Solorzano MD (Physician) [facility] Service: NEPHROLOGY Progress Note Enrique Potter 48 y.o. [id number] male [facility] Day: LOS: 1 day SUBJECTIVE Patient seen [...] went to a hospital in [facility] where he was found to have a low positive troponin of 0.13 and also had acute shortness of breath and wheezing and that's why he was transferred to [facility] . Here in our ER, the [...] Saw h im. Patient gets hemodialysis in [facility] hemodialysis unit Saturday und er Dr. [...] AV FISTULA; Surgeon: Oskar Meyer MD; Location: [facility] OR; Service: Vascul ar; Laterality: Left; Left arm possible right Unlisted procedure arthroscopy shoulder rt , ligaments Knee arthroscopy 07/07/2012 Procedure: KNEE - ARTHROSCOPY; Surgeon: Favio Raza MD; Location: [facility]; ervice: Orthopedics; Laterality: Right; After 1530 Catheter removal 07/07/2012 Procedure: DIALYSIS CATHETER REMOVAL; Surgeon: Oskar Meyer MD; Location: [facility] [place] [facility]; Service: General; Laterality: Right; perm cath Dialysis fistula creation 07/07/2012 Procedure: DIALYSIS CATHETER INSERTION; Surgeon: Oskar Meyer MD; Location: [facility] PROCEDURE; Service: General; Laterality: Left; temporary dialysis catheter Av fistula repair 07/11/2012 Procedure: AV FISTULA GRAFT REPAIR/REVISION; Surgeon: Oskar Meyer MD; Location: [facility] OR; Service: Vascular; Laterality: Left; Superficialization of brachiobasilic fistula and right IJ perm cath insertion Dialysis fistula creation 07/11/2012 Procedure: DIALYSIS CATHETER INSERTION; Surgeon: Oskar Meyer MD; Location: [facility]; Service: Vascular; Laterality: Left; [...] KIDS. CURRENTLY UNEMPLOYED, BEFOR E WORKED AT [employer] [place]. Quit METHAMPHETAMINES PER PATIENT after t he [...] bicarbonate 1,300 mg Oral BID vitamin B zyzrten-M-uoeur acid 1 tablet Oral Daily Continuous Infusions [...] Results Component Value Date PTHINTACT 255* 04/02/2012 [id number] <12* 04/02/2012 Lab Results Component Value Date TSH 8.41* 09/11/2012 TSH 7.30* 07/06/2012 TSH 16.60* 04/03/2012 Lab Results Component Value Date URICACID 8.2 04/02/2012 Lab Results Component Value Date HGBA1C UNABLE TO CALCULATE 09/11/2012 HGBA1C 6.0 05/14/2012 HGBA1C 5.4 04/03/2012 IMAGING Xr Chest Ap Portable 10/27/2013 ENRIQUE POTTER [...] to diabetes and hypertensive nephrosclerosis Hemodialysis at [facility] hemodialysis unit under Dr. Timmons Saturday [...] of care. SEAN SOLORZANO MD 10/28/2013 Chela King RP - 10/27/2013 5:15 PM PDT Progress Notes by Chela Varela RPH at 10/27/131714 Author: Chela Varela RPH Service: (none) Author Type: Pharmacist Filed: 10/27/131714 Date of Service: 10/27/131714 Status: Signed Hob Machine Operator: Chela Varela RPH (Pharmacist) Clinical Pharmacy Note - Renal Dose Adjustment Enrique Potter 48 y.o. male Ht Readings from Last 1 Encounters: 10/27/13 1.702 m (5' 7.01") Wt Readings from Last 1 Encounters: 10/27/13 72 kg (158 lb 11.7 oz) CREATININE Date Value Range Status 10/27/2013 7.41* 0.70 - 1.30 mg/dL Final Testing performed at [facility];[address] [place] [address];[place] [address] ESRD on HD Pharmacy to renally adjust [...] Case Management by VANDANA Wu at 10/27/13 2991 Author: VANDANA Wu Service: (none) Author Type: Nematologist Filed: 10/27/131625 Date of Service: 10/27/131623 Status: Signed Hob Machine Operator: VANDANA Wu (Nematologist) 10/27/131620 Discharge Planning Evaluation Admitting Diagnosis Dyspnea Readmission Yes-within 14 days Living Arrangements Spouse/significant other;Family members Support Systems Spouse/significant other;Family members;Other (Comment) ([facility]) Type of Residence Private residence House type [...] any diffic ulty walking. Patient's PCP is: [facility] Patient's insurance: Medicare / Medicaid Coverage concerns: None reported Medication coverage/concerns: None reported Community resources utilized / needed: Pt goes to Dialysis in [place] and gets there by [employer] transportation Assistance in transportation: [employer] / Family Identification of any specific education / training: TBD Barriers to Discharge / Alternative housing needed: Anticipated DCP: Home. Pt thought the plan was to stay overnight, get dialysis in the am, and then dc home. Pt's plans to arrive and stay the night at [facility]. Princess Michelle docume nted in this encounter H&P Notes Dogulas Mayberry MD - 10/27/2013 3:38 PM PDTFormatting of this note might be different from th mariela original. H&P by Douglas Mayberry MD at 10/27/13 1531 Author: Douglas Mayberry MD Service: (none) Author Type: Physician Filed: 10/27/13 1545 Date of Service: 10/27/139 Status: Signed Hob Machine Operator: Douglas Mayberry MD (Physician) [facility] Service: Hospitalist Admission History & Physical Pt: Enrique Potter AGE/SEX: 48 y.o. male ROOM: 08/24 PCP: [facility] : 1965 TODAY'S DATE: 10/27/2013 Date of Admission: 10/27/2013 Chief Complaint: SOB and transfer from [place]. History of Present Illness: *48-year-old male with past medical history of being on hemodialysis, hypertension, asthma, ex-smoker , who presented with acute onset shortness of breath that started yesterday at 63 0 p.m. That's why he went to a [place] where he was found to have a low posit home troponin of 0.13 and also had acute shortness of breath and wheezing and that's why he w as transferred to [facility]. Here in our ER, the patient was [...] AV FISTULA; Surgeon: Oskar Meyer MD; Location: [facility] OR; Service: Vascul ar; Laterality: Left; Left arm possible right Unlisted procedure arthroscopy shoulder rt , ligaments Knee arthroscopy 07/07/2012 Procedure: KNEE - ARTHROSCOPY; Surgeon: Favio Raza MD; Location: [facility]; ervice: Orthopedics; Laterality: Right; After 1530 Catheter removal 07/07/2012 Procedure: DIALYSIS CATHETER REMOVAL; Surgeon: Oskar Meyer MD; Location: [facility] [place]; Service: General; Laterality: Right; perm cath Dialysis fistula creation 07/07/2012 Procedure: DIALYSIS CATHETER INSERTION; Surgeon: Oskar Meyer MD; Location: [facility] PROCEDURE; Service: General; Laterality: Left; temporary dialysis catheter Av fistula repair 07/11/2012 Procedure: AV FISTULA GRAFT REPAIR/REVISION; Surgeon: Oskar Meyer MD; Location: [facility] OR; Service: Vascular; Laterality: Left; Superficialization of brachiobasilic fistula and right IJ perm cath insertion Dialysis fistula creation 07/11/2012 Procedure: DIALYSIS CATHETER INSERTION; Surgeon: Oskar Meyer MD; Location: [facility] OR; Service: Vascular; Laterality: Left; removed [...] KIDS. CURRENTLY UNEMPLOYED, BEFOR E WORKED AT [employer] [place]. Quit METHAMPHETAMINES PER PATIENT after t he [...] . IMAGING: Xr Chest Ap Portable 10/27/2013 ENRIQUEDIANELYS POTTER [...] detail and summarized as above. Dictation and reinspector or software, Linkdex, used which may contain error for similar s ounding words even after review. Personal communication requested for any clarification. Code Status: Prior Primary Care Physician: [facility] Douglas Mayberry MD 10/27/2013 3:38 PM documented in this encou nter Consult Notes Sean Solorzano MD - 10/27/2013 3:47 PM PDTFormatting of this note might be different fro m the original. Consult* by Sean Solorzano MD at 10/27/13 2155 Author: Sean Solorzano MD Service: Nephrology Author Type: Physician Filed: 10/27/13 1647 Date of Service: 10/27/131546 Status: Signed Hob Machine Operator: Sean Solorzano MD (Physician) [facility] Service: NEPHROLOGY CONSULT Note Enrique Potter 48 y.o. [id number] 08/24 male [facility] Hospital Day: LOS: 0 days Date [...] went to a hospital in [facility] where he was found to have a low positive troponin of 0.13 and also had acute shortness of breath and wheezing and that's why he was transferred to [facility] . Here in our ER, the [...] when Saw him. Patient gets hemodialysis in [facility] hemodialysis unit Saturday und er Dr. [...] AV FISTULA; Surgeon: Oskar Meyer MD; Location: [facility]; Service: Vascul ar; Laterality: Left; Left arm possible right Unlisted procedure arthroscopy shoulder rt , ligaments Knee arthroscopy 07/07/2012 Procedure: KNEE - ARTHROSCOPY; Surgeon: Favio Raza MD; Location: [facility]; [facility]: Orthopedics; Laterality: Right; After 1530 Catheter removal 07/07/2012 Procedure: DIALYSIS CATHETER REMOVAL; Surgeon: Oskar Meyer MD; Location[place] [facility] [place]; Service: General; Laterality: Right; perm cath Dialysis fistula creation 07/07/2012 Procedure: DIALYSIS CATHETER INSERTION; Surgeon: Oskar Meyer MD; Location: [facility] PROCEDURE; Service: General; Laterality: Left; temporary dialysis catheter Av fistula repair 07/11/2012 Procedure: AV FISTULA GRAFT REPAIR/REVISION; Surgeon: Oskar Meyer MD; Location: [facility] OR; Service: Vascular; Laterality: Left; Superficialization of brachiobasilic fistula and right IJ perm cath insertion Dialysis fistula creation 07/11/2012 Procedure: DIALYSIS CATHETER INSERTION; Surgeon: Oskar Meyer MD; Location: [facility]; Service: Vascular; Laterality: Left; [...] 386 QTC Calculation (Bezet) 500 Calculated P [place] 64 Calculated R [place] -50 Calculated T [place] 67 Diagnosis Value: Sinus tachycardia Left axis deviation Abnormal ECG When compared with ECG of 10-OCT-2012 01:22, QRS axis Shifted left This ECG contains Unconfirmed Interpretation Statements. See ED Record for Physician In terpretation. Confirmed by MUSE READ ONLY, -COMPUTER ([id number]), editor in chief newspaper DOMINIC ARCE (4) on 10/27/2013 1:37 :14 PM [facility] CARD PANEL W/O TRP (ED ONLY) Collection [...] IMAGING: Xr Chest Ap Portable 10/27/2013 ENRIQUE POTTER [...] to diabetes and hypertensive nephrosclerosis Hemodialysis at [facility] hemodialysis unit under Dr. Timmons Saturday [...] Filed: 10/28/13 0034 Date of Service: 10/27/13 1303 Status: Signed Hob Machine Operator: Jesus Laws MD (Physician) [facility] Department of Emergency Medicine Provider Name: [facility] Pertinent History and Concerns: Dialysis pt - [...] d not help. Pt reports going to [facility] this AM. The patient presents to ED [...] supposed to go for dialysis tomorrow from 1-3. Pt reports he has been on dialysis for 2 years. Pt reports he was drinking and had a hip proble m. No worsening or alleviating factors reported. The patient also complains of "feeling tire d", cough, wheezing. Patient denies other symptoms at this time. Patient reports the breathi ng treatment he is currently receiving is helping a little bit. PCP: [facility] Past Medical History Diagnosis Date Hyperlipidemia [...] AV FISTULA; Surgeon: Oskar Meyer MD; Location: [facility]; Service: Vascul ar; Laterality: Left; Left arm possible right Unlisted procedure arthroscopy shoulder rt , ligaments Knee arthroscopy 07/07/2012 Procedure: KNEE - ARTHROSCOPY; Surgeon: Favio Raza MD; Location: [facility]; S ervice: Orthopedics; Laterality: Right; After 1530 Catheter removal 07/07/2012 Procedure: DIALYSIS CATHETER REMOVAL; Surgeon: Oskar Meyer MD; Location[place] [facility] [place]; Service: General; Laterality: Right; perm cath Dialysis fistula creation 07/07/2012 Procedure: DIALYSIS CATHETER INSERTION; Surgeon: Oskar Meyer MD; Location: [facility] PROCEDURE; Service: General; Laterality: Left; temporary dialysis catheter Av fistula repair 07/11/2012 Procedure: AV FISTULA GRAFT REPAIR/REVISION; Surgeon: Oskar Meyer MD; [facility]; Service: Vascular; Laterality: Left; Superficialization of brachiobasilic fistula and right IJ perm cath insertion Dialysis fistula creation 07/11/2012 Procedure: DIALYSIS CATHETER INSERTION; Surgeon: Oskar Meyer MD; Location: [facility]; Service: Vascular; Laterality: Left; [...] KIDS. CURRENTLY UNEMPLOYED, BEFOR E WORKED AT [employer] [place]. Quit METHAMPHETAMINES PER PATIENT after t he [...] nebulizer solution 10 mg Given Shanelle Garza, ASSISTANT ACCOUNT MANAGER 10/27/2013 1257 ipratropium (ATROVENT) 0.02 % nebulizer solution 0.5 mg Given Shanelle Kat r, ASSISTANT ACCOUNT MANAGER 10/27/2013 1546 cefTRIAXone (ROCEPHIN) IVPB 1 g 0 g Intravenous Stopped Akua Grubbs RN 10/27/2013 1520 cefTRIAXone (ROCEPHIN) IVPB 1 g 1 g Intravenous New Bag Anthony Haque RN 10/27/2013 1557 azithromycin (ZITHROMAX) 500 mg in dextrose 5 % 250 mL IVPB 500 mg Intrav enous New Bag Zoltan Nuñez RN Laboratory Evaluation Results Procedure Component Value Ref Range Date/Time Cardiac Panel [[id number]] (Abnormal) Collected:10/27/13 1259 Order Status:Completed Updated:10/27/13 1406 [...] - 3.6 ng/mL CK-MB Index 4.0 BNP [[id number]] Collected:10/27/13 1259 Order Status:Completed Updated:10/27/13 1351 Specimen [...] Chest AP portable (Final result) Result time:10/27/13 1515 Final result by Rad Results In Nésotr (10/27/13 15:15:59) Impression: 1. No acute cardiopulmonary [...] Interpretation Documented by Jesus Laws MD (10/27/13 2662, [facility] Emergency Department, Emergency Medicine) No acute process. [...] by me. Ana post with its contents. MD Jesus Bui MD 10/28/13 0034 onversio n Transaction, Provider Unknown - 10/27/2013 12:50 PM PDTFormatting of this note might be di fferent from the original. ED Notes by Anthony Haque RN at 10/27/13 1250 Author: Anthony Haque RN Service: (none) Author Type: Registered Nurse Filed: 10/27/13 1250 Date of Service: 10/27/13 125 Status: Signed Hob Machine Operator: Anthony Haque RN (Registered Nurse) RT in room for Pt eval Anthony Haque RN 10/27/13 1250 onver quique Transaction, Provider Unknown - 10/27/2013 12:45 PM PDT ED Notes by Anthony Haque RN at 10/27/13 124 Author: Anthony Haque RN Service: (none) Author Type: Registered Nurse Filed: 10/27/13 1245 Date of Service: 10/27/13 1245 Status: Signed Hob Machine Operator: Anthony Haque RN (Registered Nurse) RT called for Evaluation and Tx. Anthony Haque, HARDIK 10/27/13 3757 docume nted in this encounter Plan of [...] documented in this encounter Results External Lab: [facility] (10/28/2013 3:51 AM PDT) + + + [...] | | | | | [place] [address] | | | | + + + + + + | Non- | 4.14 (L)Comment: Testing | 4.20 - 5.70 | EXTERNAL | | | Red Blood | performed at [facility], [address] | M/uL | LAB | | | Cells | [address], | | | | | Counted | [place] [address] | | | | + + + + + + | Hemoglobin | 13.4Comment: Testing | 13.2 - 17.0 | EXTERNAL | | | | performed at [facility], [address] | g/dL | LAB | | | | [address], | | | | | | [place] [address] | | | | + + + + + + | Hematocrit, | 40.3Comment: Testing | 39.0 - 50.0 % | EXTERNAL | | | POC | performed at [facility], [address] | | LAB | | | | [address], | | | | | | [place] [address] | | | | + + + + + + | MCV | 97.2Comment: Testing | 80.0 - 100.0 fl | EXTERNAL | | | | performed at [facility], [address] | | LAB | | | | [address], | | | | | | [place] [address] | | | | + + + + + + | MCH | 32.4Comment: Testing | 27.0 - 34.0 pg | EXTERNAL | | | | performed at [facility], [address] | | LAB | | | | [address], | | | | | | [place] [address] | | | | + + + + + + | MCHC | 33.3Comment: Testing | 32.0 - 35.5 | EXTERNAL | | | | performed at [facility], [address] | g/dL | LAB | | | | [address], | | | | | | [place] [address] | | | | + + + + + + | RDW-CV | 49.0Comment: Testing | 37 - 53 fl | EXTERNAL | | | | performed at [facility], [address] | | LAB | | | | [address], | | | | | | [place] [address] | | | | + + + + + + | Platelet | 209Comment: Testing | 150 - 400 K/uL | EXTERNAL | | | Count | performed at [facility], [address] | | LAB | | | Plasma | [address], | | | | | | [place] [address] | | | | + + + + + + | MPV | 7.7Comment: Testing | fl | EXTERNAL | | | | performed at [facility], [address] | | LAB | | | | [address], | | | | | | [place] [address] | | | | + + + [...] | | | | | | [place] [address] | | | | + + + + + + | % Segmented | 88.3Comment: Testing | % | EXTERNAL | | | | performed at [facility], [address] | | LAB | | | Neutrophils | [address], | | | | | | [place], [place] [address] | | | | + + + + + + | % | 9.7Comment: Testing | % | EXTERNAL | | | Lymphocytes | performed at [facility], [address] | | LAB | | | | [address], | | | | | | [place] [address] | | | | + + + + + + | % Monocytes | 1.8Comment: Testing | % | EXTERNAL | | | | performed at [facility], [address] | | LAB | | | | [address], | | | | | | [place] [address] | | | | + + + + + + | % | 0.1Comment: Testing | % | EXTERNAL | | | Eosinophils | performed at [facility], [address] | | LAB | | | | [address], | | | | | | [place] [address] | | | | + + + + + + | % Basophils | 0.1Comment: Testing | % | EXTERNAL | | | | performed at [facility], [address] | | LAB | | | | [address], | | | | | | [place] [address] | | | | + + + + + + | Absolute | 6.8Comment: Testing | 1.9 - 7.4 K/uL | EXTERNAL | | | Segmented | performed at [facility], [address] | | LAB | | | Neutrophils | [address], | | | | | | [place], [place] [address] | | | | + + + + + + | Absolute | 0.7 (L)Comment: Testing | 1.0 - 3.9 K/uL | EXTERNAL | | | Lymphocytes | performed at [facility], [address] | | LAB | | | | [address], | | | | | | [place] [address] | | | | + + + + + + | Absolute | 0.1Comment: Testing | 0 - 0.8 K/uL | EXTERNAL | | | Monocytes | performed at [facility], [address] | | LAB | | | | [address], | | | | | | [place] [address] | | | | + + + + + + | Absolute | 0.0Comment: Testing | 0 - 0.5 K/uL | EXTERNAL | | | Eosinophils | performed at [facility], [address] | | LAB | | | [address], | | | | | | [place] [address] | | | | + + + + + + | Absolute | 0.0Comment: Testing | 0 - 0.1 K/uL | EXTERNAL | | | Basophils | performed at [facility], [address] | | LAB | | | | [address], | | | | | | [place] [address] | | | | + + + [...] | | | | | [place] [address] | | | | + + + [...] | | | performed at [facility], [address] | | LAB | | | | [address], | | | | | | [place] [address] | | | | + + + [...] | | | | | [place] [address] | | | | + + + + + + | K | 4.1Comment: Testing | 3.5 - 4.9 | EXTERNAL | | | | performed at [facility], [address] | mmol/L | LAB | | | | [address], | | | | | | [place] [address] | | | | + + + + + + | Cl | 87 (L)Comment: Testing | 99 - 109 mmol/L | EXTERNAL | | | | performed at [facility], [address] | | LAB | | | | [address], | | | | | | [place] [address] | | | | + + + + + + | CO2 | 26Comment: Testing | 23 - 32 mmol/L | EXTERNAL | | | | performed at [facility], [address] | | LAB | | | | [address], | | | | | | [place] [address] | | | | + + + + + + | Anion Gap | 21 (H)Comment: Testing | 5 - 20 mmol/L | EXTERNAL | | | | performed at [facility], [address] | | LAB | | | | [address], | | | | | | [place] [address] | | | | + + + + + + | Glucose, | 189 (H)Comment: Testing | 65 - 99 mg/dL | EXTERNAL | | | Fasting | performed at [facility], [address] | | LAB | | | | [address], | | | | | | [place] [address] | | | | + + + + + + | BUN | 55 (H)Comment: Testing | 8 - 25 mg/dL | EXTERNAL | | | | performed at [facility], [address] | | LAB | | | | [address], | | | | | | [place] [address] | | | | + + + + + + | Creatinine | 8.10 (H)Comment: Testing | 0.70 - 1.30 | EXTERNAL | | | | performed at [facility], [address] | mg/dL | LAB | | | | [address], | | | | | | [place] [address] | | | | + + + + + + | BUN/Creatin | 7Comment: Testing | | EXTERNAL | | | ine Ratio | performed at [facility], [address] | | LAB | | | | [address], | | | | | | [place] [address] | | | | + + + + + + | Calcium | 9.7Comment: Testing | 8.5 - 10.2 | EXTERNAL | | | | performed at [facility], [address] | mg/dL | LAB | | | | [address], | | | | | | [place] [address] | | | | + + + [...] | | | | | | at [facility], [address] | | | | | | [facility], | | | | | | [place] [address] | | | | + + + [...] | LAB | | | | [address];[place], [place] | | | | | | [address] | | | | + + + + + -+ | Non- | 4.23Comment: Testing | 4.20 - 5.70 | EXTERNAL | | | Red Blood | performed at [facility];888 | M/uL | LAB | | | Cells | [address];[place] | | | | | Counted | [address] | | | | + + + + + -+ | Hemoglobin | 13.8Comment: Testing | 13.2 - 17.0 | EXTERNAL | | | | performed at [facility];888 | g/dL | LAB | | | | [address];[place] | | | | | | [address] | | | | + + + + + -+ | Hematocrit, | 41.1Comment: Testing | 39.0 - 50.0 % | EXTERNAL | | | POC | performed at [facility];888 | | LAB | | | | [address];[place] | | | | | | [address] | | | | + + + + + -+ | MCV | 97.2Comment: Testing | 80.0 - 100.0 fl | EXTERNAL | | | | performed at [facility];888 | | LAB | | | | [address];[place] | | | | | | [address] | | | | + + + + + -+ | MCH | 32.5Comment: Testing | 27.0 - 34.0 pg | EXTERNAL | | | | performed at [facility];[address] | | LAB | | | | [address];[place] | | | | | | [address] | | | | + + + + + -+ | MCHC | 33.5Comment: Testing | 32.0 - 35.5 | EXTERNAL | | | | performed at [facility];888 | g/dL | LAB | | | | [address];[place] | | | | | | [address] | | | | + + + + + -+ | RDW-CV | 49.4Comment: Testing | 37 - 53 fl | EXTERNAL | | | | performed at [facility];[address] | | LAB | | | | [address];[place] | | | | | | [address] | | | | + + + + + -+ | Platelet | 235Comment: Testing | 150 - 400 K/uL | EXTERNAL | | | Count | performed at [facility];888 | | LAB | | | Plasma | [address];[place] | | | | | | [address] | | | | + + + + + -+ | MPV | 7.3Comment: Testing | fl | EXTERNAL | | | | performed at [facility];[address] | | LAB | | | | [address];[place] | | | | | | [address] | | | | + + + + + -+ | Differentia | AUTOMATEDComment: | | EXTERNAL | | | l Type | Testing performed at | | LAB | | | | [facility];[address];[place] [address] | | | | + + + + + -+ | % Segmented | 90.4Comment: Testing | % | EXTERNAL | | | | performed at [facility];[address] | | LAB | | | Neutrophils | [address];[place] | | | | | | [address] | | | | + + + + + -+ | % | 6.9Comment: Testing | % | EXTERNAL | | | Lymphocytes | performed at [facility];[address] | | LAB | | | | [address];[place] | | | | | | [address] | | | | + + + + + -+ | % Monocytes | 1.1Comment: Testing | % | EXTERNAL | | | | performed at [facility];[address] | | LAB | | | | [address];[place] | | | | | | [address] | | | | + + + + + -+ | % | 1.5Comment: Testing | % | EXTERNAL | | | Eosinophils | performed at [facility];[address] | | LAB | | | | [address];[place] | | | | | | [address] | | | | + + + + + -+ | % Basophils | 0.1Comment: Testing | % | EXTERNAL | | | | performed at [facility];[address] | | LAB | | | | [address];[place] | | | | | | [address] | | | | + + + + + -+ | Absolute | 7.7 (H)Comment: Testing | 1.9 - 7.4 K/uL | EXTERNAL | | | Segmented | performed at [facility];888 | | LAB | | | Neutrophils | [address];[place] | | | | | | [address] | | | | + + + + + -+ | Absolute | 0.6 (L)Comment: Testing | 1.0 - 3.9 K/uL | EXTERNAL | | | Lymphocytes | performed at [facility];[address] | | LAB | | | | [address];[place] | | | | | | [address] | | | | + + + + + -+ | Absolute | 0.1Comment: Testing | 0 - 0.8 K/uL | EXTERNAL | | | Monocytes | performed at [facility];[address] | | LAB | | | | [address];[place] | | | | | | [address] | | | | + + + + + -+ | Absolute | 0.1Comment: Testing | 0 - 0.5 K/uL | EXTERNAL | | | Eosinophils | performed at [facility];[address] | | LAB | | | | [address];[place] | | | | | | [address] | | | | + + + + + -+ | Absolute | 0.0Comment: Testing | 0 - 0.1 K/uL | EXTERNAL | | | Basophils | performed at [facility];[address] | | LAB | | | | [address];[place] | | | | | | [address] | | | | + + + + + -+ | Platelet | ADEQUATEComment: Testing | | EXTERNAL | | | Estimate | performed at [facility];[address] | | LAB | | | | [address];[place] | | | | | | [address] | | | | + + + + + -+ | Differentia | SLIDE SCANNED, AGREES | | EXTERNAL | | | l Comments | WITH AUTOMATED | | LAB | | | | RESULTS.Comment: Testing | | | | | | performed at [facility];[address] | | | | | | [address];[place] | | | | | | [address] | | | | + + + + + -+ | RBC | RBC AND PLT MORPHOLOGY | | EXTERNAL | | | Morphology | APPEAR NORMALComment: | | LAB | | | | Testing performed at | | | | | | [facility];[address];[place] [address] | | | | + + + + + -+ | Na | 134 (L)Comment: Testing | 135 - 143 | EXTERNAL | | | | performed at [facility];888 | mmol/L | LAB | | | | [address];[place] | | | | | | [address] | | | | + + + + + -+ | K | 3.8Comment: Testing | 3.5 - 4.9 | EXTERNAL | | | | performed at [facility];888 | mmol/L | LAB | | | | [address];[place] | | | | | | [address] | | | | + + + + + -+ | Cl | 91 (L)Comment: Testing | 99 - 109 mmol/L | EXTERNAL | | | | performed at [facility];[address] | | LAB | | | | [address];[place] | | | | | | [address] | | | | + + + + + -+ | CO2 | 30Comment: Testing | 23 - 32 mmol/L | EXTERNAL | | | | performed at [facility];[address] | | LAB | | | | [address];[place] | | | | | | [address] | | | | + + + + + -+ | Anion Gap | 17Comment: Testing | 5 - 20 mmol/L | EXTERNAL | | | | performed at [facility];[address] | | LAB | | | | [address];[place] | | | | | | [address] | | | | + + + + + -+ | Glucose, | 146 (H)Comment: Testing | 65 - 99 mg/dL | EXTERNAL | | | Fasting | performed at [facility];[address] | | LAB | | | | [address];[place] | | | | | | [address] | | | | + + + + + -+ | BUN | 33 (H)Comment: Testing | 8 - 25 mg/dL | EXTERNAL | | | | performed at [facility];[address] | | LAB | | | | [address];[place] | | | | | | [address] | | | | + + + + + -+ | Creatinine | 7.41 (H)Comment: Testing | 0.70 - 1.30 | EXTERNAL | | | | performed at [facility];888 | mg/dL | LAB | | | | [address];[place] | | | | | | [address] | | | | + + + + + -+ | BUN/Creatin | 4Comment: Testing | | EXTERNAL | | | ine Ratio | performed at [facility];[address] | | LAB | | | | [address];[place] | | | | | | [address] | | | | + + + + + -+ | Calcium | 8.9Comment: Testing | 8.5 - 10.2 | EXTERNAL | | | | performed at [facility];888 | mg/dL | LAB | | | | [address];[place] | | | | | | [address] | | | | + + + + + -+ | Protein, | 7.8Comment: Testing | 6.3 - 8.2 g/dL | EXTERNAL | | | Total | performed at [facility];[address] | | LAB | | | | [address];[place] | | | | | | [address] | | | | + + + + + -+ | Albumin | 3.7Comment: Testing | 3.6 - 5.0 g/dL | EXTERNAL | | | | performed at [facility];[address] | | LAB | | | | [address];[place] | | | | | | [address] | | | | + + + + + -+ | Globulin | 4.1Comment: Testing | 1.3 - 4.9 g/dL | EXTERNAL | | | | performed at [facility];[address] | | LAB | | | | [address];[place] | | | | | | [address] | | | | + + + + + -+ | A/G Ratio | 0.9 (L)Comment: Testing | 1.0 - 2.4 | EXTERNAL | | | | performed at [facility];[address] | | LAB | | | | [address];[place] | | | | | | [address] | | | | + + + + + -+ | Bilirubin | 0.7Comment: Testing | 0.1 - 1.5 mg/dL | EXTERNAL | | | Total | performed at [facility];[address] | | LAB | | | | [address];[place] | | | | | | [address] | | | | + + + + + -+ | ALP, | 96Comment: Testing | 35 - 115 U/L | EXTERNAL | | | External | performed at [facility];[address] | | LAB | | | | [address];[place] | | | | | | [address] | | | | + + + + + -+ | AST | 23Comment: Testing | 10 - 45 U/L | EXTERNAL | | | | performed at [facility];[address] | | LAB | | | | [address];[place] | | | | | | [address] | | | | + + + + + -+ | ALT | 36Comment: Testing | 10 - 65 U/L | EXTERNAL | | | | performed at [facility];[address] | | LAB | | | | [address];[place] | | | | | | [address] | | | | + + + [...] [facility];[address];[place] [address] | | | | + + + + + -+ | CK, Total | 105Comment: Testing | 55 - 400 U/L | EXTERNAL | | | | performed at [facility];[address] | | LAB | | | | [address];[place] | | | | | | [address] | | | | + + + [...] [facility];[address] | | | | | | [address];[place] | | | | | | [address] | | | | + + + + + -+ | aPTT, | 24Comment: Testing | 23 - 32 seconds | EXTERNAL | | | Patient | performed at [facility];[address] | | LAB | | | | [address];[place] | | | | | | [address] | | | | + + + + + -+ | CK-MB | 4.2 (H)Comment: Testing | 0.5 - 3.6 ng/mL | EXTERNAL | | | | performed at [facility];[address] | | LAB | | | | [address];[place] | | | | | | [address] | | | | + + + [...] at [facility] | | LAB | | | | [facility];[place] | | | | | | [address] | | | | + + + [...] (500), | | | | | | 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
--- OUTSIDE RECORDS SUMMARY | ~2019-12-30 | XMS | Encounter Summary ---
Demographics + + + | Address | [address] | | | [place] [address] | + + + | Home Phone | | + + + | Preferred Language | Unknown | + + + | Marital Status | Single | + + + | Shinto Affiliation | Unknown | + + + | Race | or | + + + | Ethnic Group | Not or | + + + Author + + + | Author | [facility] | + + + | Organization | [facility] [employer] [facility] | + + + | Address | [...] Team Providers + +------+ + | Care Mop Man Name | Role | Phone | + [...] questions) | | | | [address] [place], | [place], [place] | | | | | [place] [address] | [address] | | | | | [phone] | | | +--------+ + + + [...]
--- OUTSIDE RECORDS SUMMARY | ~2019-12-30 | XMS | Encounter Summary ---
Demographics + + + | Address | [address] | | | [place] [address] | + + + | Home Phone [...] Team Providers + +------+ + | Care Trailer Rental Clerk Name | Role | Phone | + +------+ + PCP | Unavailable | + +------+ + Encounter Details +--------+ + + + + | Date | Type | Department | Care Team | Description | +--------+ + + + + | 10/05/ | Emergency | [facility] | Inocencio Burden | ESRD on hemodialysis | | 2018 | | [facility] | [address] | ([facility]); Cellulitis | | | | EMERGENCY CENTER | [address] | of right upper | | | | [address] | [place], [place] | extremity | | | | [place], [place] | [address] | | | | | [address] | [phone] | | | | | [phone] | | | +--------+ + + + [...] + | | | | 0 | /06/12 | | | HYDROcodone-acetamin | | | [...] + + documented as of this encounter Consult Notes Obdulio Ellison MD - 10/05/2017 4:46 PM PDTFormatting of this note might be different fr om the original. Consults by Obdulio Ellison MD at 10/05/17 034 Author: Obdulio Ellison MD Service: Vascular Surgery Author Type: Physician Filed: 10/05/17 8600 Date of Service: 10/05/171645 Status: Signed Structural Designer: Obdulio Ellison MD (Physician) [facility] Service: Vascular Surgery Initial Consult Note Date of Admission: 10/05/2017 Date of consultation: 10/05/2017 Reason for Consultation: Right arm pain/swelling Requesting Physician: Dr. Burden, Emergency Department Primary Care Physician: ANDRY DENG History Obtained From: patient, chart review Code Status: Prior CHIEF COMPLAINT: Right arm pain/swelling HISTORY OF PRESENT ILLNESS The patient is a 52 y.o. male with significant past medical history of ESRD for which he i s dialyzed via a right arm brachio-basilic AVF who presents with 5 days of pain and swellin g in the right arm which has prevented him from getting HD since Saturday. He denies any prior episodes of such swelling and states that it developed acutely. No fevers/chills/sweats, no other constitutional symproms. The pain is mild to moderate in severity and aching/throbbin g in nature though becomes sharper when touching near the fistula. 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 Rash and nonspecific skin eruption 04/03/2012 SOB (shortness of breath) 10/27/2013 Thyroid disease Walker as ambulation aid Past Surgical History Procedure Laterality Date AV FISTULA PLACEMENT Right 02/09/2014 Procedure: AV FISTULA; Surgeon: Oskar Meeyr MD; Location: [facility] MAIN OR; Service: Vascula r; Laterality: Right; AV FISTULA PLACEMENT Left 05/06/2012 Procedure: AV FISTULA; Surgeon: Oskar Meyer MD; Location: [facility] MA[facility] OR; Service: Vascula r; Laterality: Left; Left arm possible right AV FISTULA REPAIR Left 07/11/2012 Procedure: AV FISTULA - GRAFT REPAIR/REVISION; Surgeon: Oskar Meyer MD; Location: [facility] IN OR; Service: Vascular; Laterality: Left; Superficialization of brachiobasilic fistula and right IJ perm cath insertion CATHETER REMOVAL Right 07/07/2012 Procedure: DIALYSIS CATHETER - REMOVAL; Surgeon: Oskar Meyer MD; Location: [facility] BEDSIDE P ROCEDURE; Service: General; Laterality: Right; perm cath COLONOSCOPY WITH EGD N/A 05/01/2012 Procedure: COLONOSCOPY W/ EGD; Surgeon: John Singleton MD; Location: [facility] ENDOSCOPY; Ser vice: Gastroenterology; Laterality: N/A; DIALYSIS FISTULA CREATION Left 07/11/2012 Procedure: DIALYSIS CATHETER - INSERTION; Surgeon: Oskar Meyer MD; Location: [facility] MAIN OR ; Service: Vascular; Laterality: Left; removed dialysis catheter from left neck and place d new on in left chest, attempted in right neck but unable to place DIALYSIS FISTULA CREATION Left 07/07/2012 Procedure: DIALYSIS CATHETER - INSERTION; Surgeon: Oskar Meyer MD; Location: [facility] BEDSIDE PROCEDURE; Service: General; Laterality: Left; temporary dialysis catheter KNEE ARTHROSCOPY Right 07/07/2012 Procedure: KNEE - ARTHROSCOPY; Surgeon: Favio Raza MD; Location: [facility] MAIN OR; rvice: Orthopedics; Laterality: Right; After 1530 SUPERFICIALIZATION OF AV FISTULA Right 03/30/2014 Procedure: AV FISTULA - SUPERFICIALIZATION; Surgeon: Oskar Meyer MD; Location: [facility] MA[facility] OR; Service: Vascular; Laterality: Right; UNLISTED PROCEDURE ARTHROSCOPY shoulder rt , ligaments Allergies Allergen Reactions Azithromycin Rash Unknown Lisinopril Other (See Comments) "makes me sweat and knocked me out" Penicillins Other (See Comments) Unknown- not sure 10/08/12: Patient tolerated Ceftriaxone during previous admissions. (Not in a hospital admission) Scheduled Medications sodium chloride 10 mL Intravenous Q8H sodium chloride 10 mL Intravenous Q8H Continuous Infusions cefTAZidime PRN Medications Family History Problem Relation Age of Onset Heart disease Mother Heart disease Father Diabetes Father Cancer Father colon cancer History Smoking Status Former Smoker Packs/day: 1.00 Years: 23.00 Quit date: 04/28/2011 Smokeless Tobacco Never Used Comment: quit 17 yrs ago PHYSICAL EXAM Vital Signs: BP 169/79 (BP Location: Left forearm) | Pulse 80 | Temp 97.5 F (36.4 C) (Oral) | Res p 16 | Wt 82.2 kg (181 lb 3.5 oz) | SpO2 100% | BMI 28.38 kg/m Temp: [97.5 F (36.4 C)-97.7 F (36.5 C)] 97.5 F (36.4 C) (10/05 1605) BP: (129-193)/(64-86) 193/85 (10/05 1646) Heart Rate: [80-84] 82 (10/05 1646) Resp: [16-20] 16 (10/05 1646) SpO2: [99 %-100 %] 99 % (10/05 1646) Weight: [82.2 kg (181 lb 3.5 oz)] 82.2 kg (181 lb 3.5 oz) (10/05 1242) NAD, resting comfortably. Large body habitus. Neck supple, nontender, no visible veins Chest wall nontender, atraumatic. Right upper extremity AVF with strong palpable thrill and completely normal character. The skin of the right upper arm is thickened and indurated, with multiple bullae, though th ere is minimal erythema. There is a small 1cm wound on the mid upper arm with a small eschar overlying. The area is diffusely tender but there is no palpable fluid collection or expres sible drainage. Radial pulse is normal. DATA CBC: Lab Results Component Value Date WBC 7.23 10/05/2017 RBC 3.92 (L) 10/05/2017 HGB 11.1 (L) 10/05/2017 HCT 34.5 (L) 10/05/2017 MCV 87.9 10/05/2017 MCH 28.3 10/05/2017 MCHC 32.2 10/05/2017 RDW 52.5 10/05/2017 PLT 245 10/05/2017 MPV 7.1 10/05/2017 DIFFTYPE AUTOMATED 10/05/2017 CMP: Lab Results Component Value Date NA 133 (L) 10/05/2017 K 4.8 10/05/2017 CL 97 (L) 10/05/2017 CO2 19 (L) 10/05/2017 ANIONGAP 22 (H) 10/05/2017 GLUF 134 (H) 10/05/2017 BUN 71 (H) 10/05/2017 CREATININE 15 (H) 10/05/2017 BCR 5 10/05/2017 CA 7.5 (L) 10/05/2017 CA 6.1 (L) 04/02/2012 PROT 7.2 10/05/2017 ALB 3.2 (L) 10/05/2017 GLOB 4.0 10/05/2017 BILITOT 0.7 10/05/2017 ALP 82 10/05/2017 AST 22 10/05/2017 ALT 30 10/05/2017 EGFR 4 (L) 10/05/2017 Additional data review: The patient does have a history of a small abscess on the right upp er arm which was culture-positive for MRSA 2 months ago. PROBLEM LIST Active Problems: * No active hospital problems. * ASSESSMENT & PLAN 1. Right upper extremity cellulitis overlying brachio-basilic AVF: While the patient does h ave significant arm edema, his physical exam findings, specifically the very strong thrill w ithin the AVF, the absence of venous collaterals, and the more focal nature of the edema, ar mayelin strongly against a central venous stenosis being the underlying cause. His thickened, te nder skin is much more consistent with a cellulitis. I spoke with Dr. Garg, his coloring room worker, who does not believe he needs dialysis at this t [facility]. As a result, he recommended dosing with Vancomycin and Ceftazidime today, and he will p serjio to continue this for a 14-day course to be administered during his HD sessions. He has n o signs of impending failure of his AV access, so I agree that inpatient treatment of this i s not necessary provided he is on appropriate antibiotics. Thank you for allowing me to participate in the care of this patient. Please call if there are any additional questions. Obdulio Ellison MD, FACS [facility] Location: [address] [place] [address]. [address] [place] [address] (Office) documente d in this encounter ED Notes Conversion Transaction, Provider Unknown - 10/05/2017 2:53 PM PDTFormatting of this note m ight be different from the original. ED Notes by Ayde Lopez RN at 10/05/171452 Author: Ayde Lopez RN Service: (none) Author Type: Registered Nurse Filed: 10/05/171452 Date of Service: 10/05/171452 Status: Signed Structural Designer: Ayde Lopez RN (Registered Nurse) Lab at bedside for blood culture draw. Ayde Lopez RN 10/05/171452 onver quique Transaction, Provider Unknown - 10/05/2017 2:04 PM PDT ED Notes by Malinda Elizabeth at 10/05/171403 Author: Malinda Elizabeth Service: (none) Author Type: Technical Applications Specialist Filed: 10/05/171403 Date of Service: 10/05/171403 Status: Signed Structural Designer: Malinda Elizabeth (Technical Applications Specialist) EKG given to Dr Jenise Elizabeth 10/05/171403 onver quique Transaction, Provider Unknown - 10/05/2017 1:47 PM PDT ED Notes by Ayde Lopez RN at 10/05/17 134 Author: Ayde Lopez RN Service: (none) Author Type: Registered Nurse Filed: 10/05/17 134 Date of Service: 10/05/171346 Status: Signed Structural Designer: Ayde Lopez RN (Registered Nurse) Lab notified for blood culture draw. Ayde Lopez RN 10/05/17 134 onver quique Transaction, Provider Unknown - 10/05/2017 1:40 PM PDT ED Notes by SN Dawit at 10/05/17 1340 Author: SN Dawit Service: (none) Author Type: Wellness Director Filed: 10/05/17 134 Date of Service: 10/05/17 134 Status: Signed Structural Designer: SN Dawit (Wellness Director) Cosigner: Ayde Lopez RN at 09/22 10/09 1358 One unsuccessful IV insertion attempt in left forearm. SN Dawit 10/05/17 134 nocencio Mcclure DO - 10/05/2017 1:09 PM PDTFormatting of this note might be different f rom the original. ED Provider Notes by Inocencio Burden DO at 10/05/17 1309 Author: Inocencio Burden DO Service: (none) Author Type: Physician Filed: 10/05/17 1804 Date of Service: 10/05/17 1309 Status: Signed Structural Designer: Inocencio Burden DO (Physician) [facility] Department of Emergency Medicine 1:10 PM History of Present Illness Patient Identification Enrique Potter is a 52 y.o. male. Patient information was obtained from patient and spouse/partner. History/Exam limitations: none. Patient presented to the Emergency Department by: Car Chief Complaint Chief Complaint Patient presents with Vascular Access Problem swelling to right arm, missed 2 dialysis treatments. The patient presents to ED with complaints of a vascular access problem. Onset of symptoms was about 5 days ago after dialysis, with a worsening course since that time. The symptoms a re described to be of moderate severity. The patient describes the quality and location of t he symptoms as the following: R arm pain most prominent over the bicep near the elbow with s welling. This has never happened to the pt before. Pt has not had dialysis since Saturday, 5 d ays ago. Reports that they tried yesterday and for some reason they were not able to access his fistula. Patient denies CP, SOB, or any other sxs at this time. Pt also reports that h e was started on abx for an infection, but states it continues to worsen. Pt's coloring room worker is Dr. Christianson. PCP: ANDRY DENG Past Medical History Diagnosis Date Abdominal pain, right upper quadrant 04/13/2012 Amphetamine and other psychostimulant dependence, continuous 04/02/2012 Anemia Anemia due to blood loss 04/30/2012 Asthma pt not using inhaler any more, no symptoms AV fistula ([facility]) lt arm 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 Chronic obstructive asthma with exacerbation ([facility]) 10/27/2013 Chronic systolic heart failure ([facility]) 09/10/2016 Diabetes mellitus type I ([facility]) Dialysis patient ([facility]) DVT (deep venous thrombosis) ([facility]) x3 GI bleed 04/30/2012 from coumadin Gout Hyperkalemia 11/09/2013 Hyperlipidemia Hyperphosphatemia 05/24/2012 Hypertension Hyponatremia 09/08/2016 Knee pain, right 07/06/2012 MSSA (methicillin susceptible Staphylococcus aureus) infection 04/11/2012 Neuromuscular disorder ([facility]) neuropathy 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 Rash and nonspecific skin eruption 04/03/2012 SOB (shortness of breath) 10/27/2013 Thyroid disease Walker as ambulation aid Past Surgical History Procedure Laterality Date AV FISTULA PLACEMENT Right 02/09/2014 Procedure: AV FISTULA; Surgeon: Oskar Meyer MD; Location: [facility] MA[facility] OR; Service: Vascula r; Laterality: Right; AV FISTULA PLACEMENT Left 05/06/2012 Procedure: AV FISTULA; Surgeon: Oskar Meyer MD; Location: [facility] OR; Service: Vascula r; Laterality: Left; Left arm possible right AV FISTULA REPAIR Left 07/11/2012 Procedure: AV FISTULA - GRAFT REPAIR/REVISION; Surgeon: Oskar Meyer MD; Location: [facility]; Service: Vascular; Laterality: Left; Superficialization of brachiobasilic fistula and right IJ perm cath insertion CATHETER REMOVAL Right 07/07/2012 Procedure: DIALYSIS CATHETER - REMOVAL; Surgeon: Oskar Meyer MD; Location: [facility] BEDSIDE P ROCEDURE; Service: General; Laterality: Right; perm cath COLONOSCOPY WITH EGD N/A 05/01/2012 Procedure: COLONOSCOPY W/ EGD; Surgeon: John Singleton MD; Location: [facility] ENDOSCOPY; Ser vice: Gastroenterology; Laterality: N/A; DIALYSIS FISTULA CREATION Left 07/11/2012 Procedure: DIALYSIS CATHETER - INSERTION; Surgeon: Oskar Meyer MD; Location: [facility] MA[facility] OR ; Service: Vascular; Laterality: Left; removed dialysis catheter from left neck and place d new on in left chest, attempted in right neck but unable to place DIALYSIS FISTULA CREATION Left 07/07/2012 Procedure: DIALYSIS CATHETER - INSERTION; Surgeon: Oskar Meyer MD; Location: [facility] BEDSIDE PROCEDURE; Service: General; Laterality: Left; temporary dialysis catheter KNEE ARTHROSCOPY Right 07/07/2012 Procedure: KNEE - ARTHROSCOPY; Surgeon: Favio Raza MD; Location: [facility] MA[facility] OR; rvice: Orthopedics; Laterality: Right; After 1530 SUPERFICIALIZATION OF AV FISTULA Right 03/30/2014 Procedure: AV FISTULA - SUPERFICIALIZATION; Surgeon: Oskar Meyer MD; Location: [facility] OR; Service: Vascular; Laterality: Right; UNLISTED PROCEDURE [...] No Drug use: Yes Types: Marijuana Comment: Smokes THC Daily, quit methamphetamine in mar 2012 after ARF Sexual activity: Not on file Other Topics Concern Not on file Social History Narrative , LIVES WITH . HAS NO BIOLOGICAL KIDS; 2 STEP KIDS. CURRENTLY UNEMPLOYED, BEFOR E WORKED AT [employer] IN [employer] Quit METHAMPHETAMINES PER PATIENT after t he ARF in mar 2012. FATHER HAS COLON CANCER, HEART DISEASE, MOTHER 15 YEARS AGO. NO FH KIDNEY PROB LEMS. Family History Problem Relation Age of Onset Heart disease Mother Heart disease Father Diabetes Father Cancer Father colon cancer Review of Systems Constitutional: Negative for fever, chills Eyes: Negative for vision changes Nose: Negative for congestion Throat: Negative for sore throat CV/Resp: Positive for vascular access problem Negative for chest pain, [id number], cough GI: Negative for abdominal pain, nausea, vomiting, or diarrhea : Negative for urinary problems Musculoskeletal: Negative for back pain, joint pain Skin: Negative for rash Neuro/Psych: Negative for headache Endo/heme/Lymph: Negative for easy bruising All other systems reviewed and negative except as noted. Physical Exam BP 129/64 (BP Location: Left forearm) | Pulse 84 | Temp 97.7 F (36.5 C) (Temporal) | Resp 20 | Wt 82.2 kg (181 lb 3.5 oz) | SpO2 100% | BMI 28.38 kg/m Vital signs interpretation: pre hypertensive, otherwise WNL Pulse Oximetry interpretation: Normal General: Alert, in no apparent distress Eyes: Normal inspection ENT: MMM Neck: Normal inspection Cardiovascular: Rate and rhythm normal No murmurs Respiratory: Breath sounds normal bilaterally No rales, wheezing or rhonchi Abdomen: Soft, non-tender, non-distended Extremities: Significant RUE edema Tenderness diffusely over the R bicep with mild induration and erythema, no flucuance Fistula in the RUE that has a palpable thrill Distal pulses intact Skin: Color normal Warm and dry No rash Neuro: Alert, no AMS No gross motor/sensory deficits Medical Decision Making and Emergency Department Course ED Department Course Patient presents to ED with complaints of a vascular access problem. My DDx includes, but i s not limited to: compartment syndrome, DVT, cellulitis, infection, ACS, electrolyte abnorma lity, vs other. Will order labs, US, Vancomycin, and reevaluate the patient. I will give abx for a presumed cellulitis and obtain an US. 2:38 PM Labs resulted showing hyponatremia 133, hypochloremia 97, low CO2 19, hyperglycemia 134, renal failure with a creatinine of 15 and GFR of 4 consistent with pt hx, hypocalcemia 7.5, hypoalbuminemia 3.2, and elevated MMB 8.1. 3:00 PM US resulted showing on evidence of DVT. 4:00 PM Discussed the pt's case with Dr. Garg, nephrology, who recommends that the pt cou ld be discharged and f/u for his dialysis on Saturday unless Dr. Puente, vascular surgery, felt differently. He recommend I call him for a fistulogram. 4:05 PM Discussed the pt's case with Dr. Puente, vascular srugery, who will come evaluat e the pt. Dr. Puente has evaluated the pt and has spoken to Dr. Garg. The plan is to give a dos e of ceftazadime 2g iv prior to discharge and Dr. garg will continue abx at his next dialy sis. Discussed this with the pt and he is agreeable to the plan. Patient reevaluation. Patient is stable and feeling better at this time. I discussed all ED results and my clinical impression with the patient. Patient is ready for discharge. I advi sed patient to follow up with a PCP and we discussed the emergent signs and symptoms that wo uld necessitate a return to ED. All questions and concerns addressed. Medications sodium chloride 0.9 % flush 10 mL ( Intravenous Canceled Entry 10/05/17 1604) sodium chloride 0.9 % flush 10 mL ( Intravenous Canceled Entry 10/05/17 1604) vancomycin (VANCOCIN) 1250 mg/250 mL IVPB (0 mg Intravenous Stopped 10/05/17 2988) cefTAZidime (FORTAZ) 1 g in sodium chloride (IV) 0.9 % 50 mL IVPB (1 g Intravenous New Bag 10/05/17 3942) Vitals: 10/05/17 1242 10/05/17 1331 10/05/17 1513 10/05/17 1605 BP: 129/64 187/86 169/79 BP Location: Left forearm Left forearm Left forearm Pulse: 84 82 80 80 Resp: 20 20 20 16 Temp: 97.7 F (36.5 C) 97.5 F (36.4 C) TempSrc: Temporal Oral SpO2: 100% 100% 100% 100% Weight: 82.2 kg (181 lb 3.5 oz) Records Reviewed Old medical records. Nursing notes. Previous ED visits for similar and unrelated complaints. Laboratory Evaluation Results Procedure Component Value Ref Range Date/Time Blood Culture Set 1 [[id number]] Collected: 10/05/171401 Order Status: Sent Specimen: Blood from Blood, peripheral draw Updated: 10/05/171612 Blood Culture Set 2 [[id number]] Collected: 10/05/17 145 Order Status: Sent Specimen: Blood from Blood Updated: 10/05/171612 Troponin I, Lab [[id number]] Collected: 10/05/171401 Order Status: Completed Specimen: Blood Updated: 10/05/171437 TROPONIN I <0.020 0.00 - 0.10 ng/mL Cardiac Panel [[id number]] (Abnormal) Collected: 10/05/171401 Order Status: Completed Updated: 10/05/171437 WBC 7.23 3.80 - 11.00 K/uL RBC 3.92 (L) 4.20 - 5.70 M/uL HGB 11.1 (L) 13.2 - 17.0 g/dL HCT 34.5 (L) 39.0 - 50.0 % MCV 87.9 80.0 - 100.0 fl MCH 28.3 27.0 - 34.0 pg MCHC 32.2 32.0 - 35.5 g/dL RDW SD 52.5 37 - 53 fl PLT 245 150 - 400 K/uL MPV 7.1 fl DIFF TYPE AUTOMATED NEUTROPHILS 72.19 % LYMPHOCYTES 7.35 % MONOCYTES 7.16 % EOSINOPHILS 12.79 % BASOPHILS 0.51 % NEUTROPHILS ABS 5.22 1.90 - 7.40 K/uL LYMPHOCYTES ABS 0.53 (L) 1.00 - 3.90 K/uL MONOCYTES ABS 0.52 0.00 - 0.80 K/uL EOSINOPHILS ABS 0.92 (H) 0.00 - 0.50 K/uL BASOPHILS ABS 0.04 0.00 - 0.10 K/uL SODIUM 133 (L) 135 - 145 mmol/L POTASSIUM 4.8 3.5 - 4.9 mmol/L CHLORIDE 97 (L) 99 - 109 mmol/L CO2 19 (L) 23 - 32 mmol/L ANION GAP AGAP 22 (H) 5 - 20 mmol/L GLUCOSE 134 (H) 65 - 99 mg/dL BUN 71 (H) 8 - 25 mg/dL CREATININE 15 (H) 0.70 - 1.30 mg/dL BUN/CREAT 5 CALCIUM 7.5 (L) 8.5 - 10.5 mg/dL TOTAL PROTEIN 7.2 6.3 - 8.2 g/dL Albumin 3.2 (L) 3.6 - 5.0 g/dL GLOBULIN 4.0 1.3 - 4.9 g/dL A/G 0.8 (L) 1.0 - 2.4 TBIL 0.7 0.1 - 1.5 mg/dL ALK PHOS 82 35 - 115 U/L AST 22 10 - 45 U/L ALT 30 10 - 65 U/L EGFR 4 (L) >60 mL/min/1.73m2 CPK 173 55 - 400 U/L INR 1.0 APTT 24 23 - 32 seconds MMB 8.1 (H) 0.5 - 3.6 ng/mL CK-MB Index 4.7 CPK [[id number]] Collected: 10/05/17 1346 Order Status: Sent Specimen: Blood I personally reviewed the lab results and they have been posted to the chart. Pertinent po sitive and negative findings have been addressed appropriately. Radiology and EKG Evaluation Imaging Results US upper extremity venous right (Final result) Result time 10/05/17 15:00:09 Final result by Momo Naidu MD (10/05/17 15:00:09) Impression: 1. No evidence of DVT. Narrative: ENRIQUE POTTER 1965 US UPPER EXTREMITY VENOUS DOPPLER RIGHT 10/05/2017 2:52 PM INDICATION: Arm pain COMPARISON: None TECHNIQUE: Right upper extremity venous duplex, grayscale, color-flow and spectral analysis FINDINGS: The internal jugular vein is patent. There is normal color flow of the internal j ugular and subclavian veins. Normal augmentation is present along the proximal deep venous s ystem. The cephalic vein is normally compressible. Mid basilic vein is normal. Examination is limited due to patient soft tissue hardness. EKG @ 1402 Normal sinus rhythm with a rate of 82 bpm No significantly peaked T wave Non specific T wave inversion in V2 No ST changes concerning for acute ischemia Normal QRS, intervals QTc at 500 ms Interpreted by Inocencio Burden DO at time of service. ED Diagnoses Final diagnoses ESRD on hemodialysis (HCC) Cellulitis of right upper extremity Disposition: ED Disposition ED Disposition Condition Comment Orders Discharge Stable Follow-up Information Follow up With Specialties Details Why Contact Info Andry Deng MD Family Medicine As needed [id number] [facility] [address] [facility] Emergency Department Emergency Medicine If symptoms worsen [address] [place] [id number] Discharge Medications: New Prescriptions No new medications Dictation software, Biocontrol, used which may contain error for similar sounding words even af ter review. Personal communication requested for any clarification. Procedures Additional Documentation Procedures Attending Provider Note: IInocencio DO personally performed the services descri bed in this documentation, as scribed by Tony Laguna in my presence, and it is both accurate and complete. Chart Reviewed and Completed: 10/05/2017 6:04 PM Scribe: Cande Lafleur, scribing for and in the presence of Inocencio Burden DO. Signed by: Cande Burt 10/05/2017 6:04 PM Inocencio Burden DO 10/05/17 1802 onversion Transaction, Provider Unknown - 10/05/2017 1:08 PM PDTFormatting of this note might be diff erent from the original. ED Notes by SN Dawit at 10/05/17 1308 Author: SN Dawit Service: (none) Author Type: Wellness Director Filed: 10/05/17 1308 Date of Service: 10/05/17 130 Status: Signed Structural Designer: SN Dawit (Wellness Director) Cosigner: Ayde Lopez RN at 09/22 10/09 1358 Placed pillow under patient's right arm and put up both side rails per patient's request. SN Dawit 10/05/17 1308 onver quique Transaction, Provider Unknown - 10/05/2017 12:51 PM PDT ED Notes by Ayde Lopez RN at 10/05/17 1251 Author: Ayde Lopez RN Service: (none) Author Type: Registered Nurse Filed: 10/05/17 1257 Date of Service: 10/05/17 125 Status: Addendum Structural Designer: Ayde Lopez RN (Registered Nurse) Related Notes: Original Note by Ayde Lopez RN (Registered Nurse) filed at 1255 Pt reports swelling to RUE X 6 days. Pt reports the swelling began after HD on Saturday. Thri ll and bruit present to RUE. Pt denies fever, CP, n/v/d. Pt normally gets HD M,W, andF. Pt reports he has missed last two HD appts. 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 editor Barbara Ozuna | | | | | | (79) on 10/07/2017 | | | | | | 12:53:35 AM | | | | + + + + + + + + | Specimen | + + | | + + + + + | Narrative | Performed At | + + + | Historically converted procedure from [facility] environment | EXTERNAL LAB | + + + + +---------+ + + | Performing | Address | City/State/Zipcode | Phone Number | | Organization | | | | + +---------+ + + | EXTERNAL LAB | | | | + +---------+ + + Culture, Blood (10/05/2017 2:02 PM [...] + + + -+ | Non- | 3.92 (L) | 4.20 - 5.70 | EXTERNAL | | | Red Blood | | M/uL | LAB | | | Cells | | | | | | Counted | | | | | + + + + + -+ | Hemoglobin | 11.1 (L) | 13.2 [...] | | | | | | ACUTE NC Testing | | | | | | performed at [facility];[address] | | | | | | [facility];[place], [place] | | | | | | [address] | | | | + + + [...]
--- OUTSIDE RECORDS SUMMARY | ~2019-12-30 | XMS | Encounter Summary ---
Demographics + + + | Address | [address] | | | [place] [address] | + + + | Home Phone [...] Team Providers + +------+ + | Care Structural Rigger Name | Role | Phone | + [...] Unknown | | | | | [place], [place] | | | | | | [address] | (Fax) | | | | | [phone] | | | +--------+ + + + [...] | | 14 | | | ol ([id number] | times daily. | | | | [...] documented as of this encounter Procedure Notes Cee Castillo, Provider Unknown - 03/30/2014 7:33 AM PDTFormatting of this note m ight be different from the original. Pre-Procedure Instructions by Dorie Reese RN at 03/30/14732 Author: Dorie Reese RN Service: (none) Author Type: Registered Nurse Filed: 03/30/14733 Date of Service: 03/30/14732 Status: Signed Quarrying Specialist: Dorie Reese RN (Registered Nurse) People to [...] LAB | | | | [address]vd;[place] [address] | | | | + + + + + + | Antibody | NEGATIVE | | EXTERNAL | | | Screen | | | LAB | | + + + + + + | Antibody | Testing performed at | | EXTERNAL | | | Screen | [facility];[address] | | LAB | | | | [address];[place] [address] | | | | + + + + + + | BB BAND | [id number] | | EXTERNAL | | | | | | LAB | | + + + + + + | BB BAND | Testing performed at | | EXTERNAL | | | | [facility];[address] | | LAB | | | | [address];[place] [address] | | | | + + + [...] | | | Patient | performed at [facility];[address] | | LAB | | | | [address];[place], [place] | | | | | | [address] | | | | + + + [...] | | | | | performed at [facility] | | | | | | [facility];[place], [place] | | | | | | [address] | | | | + + + [...] EXTERNAL | | | | performed at [facility];[address] | | LAB | | | | [address];[place], [place] | | | | | | [address] | | | | + + + + + + | Non- | 3.83 (L)Comment: Testing | 4.20 - 5.70 | EXTERNAL | | | Red Blood | performed at [facility];[address] | M/uL | LAB | | | Cells | [address];[place] | | | | | Counted | [address] | | | | + + + + + + | Hemoglobin | 11.5 (L)Comment: Testing | 13.2 - 17.0 | EXTERNAL | | | | performed at [facility];[address] | g/dL | LAB | | | | [address];[place] | | | | | | [address] | | | | + + + + + + | Hematocrit, | 35.1 (L)Comment: Testing | 39.0 - 50.0 % | EXTERNAL | | | POC | performed at [facility];[address] | | LAB | | | | [address];[place] | | | | | | [address] | | | | + + + + + + | MCV | 91.8Comment: Testing | 80.0 - 100.0 fl | EXTERNAL | | | | performed at [facility];[address] | | LAB | | | | [address];[place] | | | | | | [address] | | | | + + + + + + | MCH | 30.2Comment: Testing | 27.0 - 34.0 pg | EXTERNAL | | | | performed at [facility];[address] | | LAB | | | | [address];[place] | | | | | | [address] | | | | + + + + + + | MCHC | 32.9Comment: Testing | 32.0 - 35.5 | EXTERNAL | | | | performed at [facility];[address] | g/dL | LAB | | | | [address];[place] | | | | | | [address] | | | | + + + + + + | RDW-CV | 54.3 (H)Comment: Testing | 37 - 53 fl | EXTERNAL | | | | performed at [facility];[address] | | LAB | | | | [address];[place] | | | | | | [address] | | | | + + + + + + | Platelet | 344Comment: Testing | 150 - 400 K/uL | EXTERNAL | | | Count | performed at [facility];[address] | | LAB | | | Plasma | [address];[place] | | | | | | [address] | | | | + + + + + + | MPV | 6.1Comment: Testing | fl | EXTERNAL | | | | performed at [facility];[address] | | LAB | | | | [address];[place] | | | | | | [address] | | | | + + + + + + | Differentia | AUTOMATEDComment: | | EXTERNAL | | | l Type | Testing performed at | | LAB | | | | [facility];[address] | | | | | | [address];[place] [address] | | | | + + + + + + | % Segmented | 51.3Comment: Testing | % | EXTERNAL | | | | performed at [facility];[address] | | LAB | | | Neutrophils | [address];[place] | | | | | | [address] | | | | + + + + + + | % | 28.0Comment: Testing | % | EXTERNAL | | | Lymphocytes | performed at [facility];[address] | | LAB | | | | [address];[place] | | | | | | [address] | | | | + + + + + + | % Monocytes | 11.3Comment: Testing | % | EXTERNAL | | | | performed at [facility];[address] | | LAB | | | | [address];[place] | | | | | | [address] | | | | + + + + + + | % | 8.5Comment: Testing | % | EXTERNAL | | | Eosinophils | performed at [facility];[address] | | LAB | | | | [address];[place] | | | | | | [address] | | | | + + + + + + | % Basophils | 0.9Comment: Testing | % | EXTERNAL | | | | performed at [facility];[address] | | LAB | | | | [address];[place] | | | | | | [address] | | | | + + + + + + | Absolute | 2.8Comment: Testing | 1.9 - 7.4 K/uL | EXTERNAL | | | Segmented | performed at [facility];[address] | | LAB | | | Neutrophils | [address];[place] | | | | | | [address] | | | | + + + + + + | Absolute | 1.5Comment: Testing | 1.0 - 3.9 K/uL | EXTERNAL | | | Lymphocytes | performed at [facility];[address] | | LAB | | | | [address];[place] | | | | | | [address] | | | | + + + + + + | Absolute | 0.6Comment: Testing | 0 - 0.8 K/uL | EXTERNAL | | | Monocytes | performed at [facility];[address] | | LAB | | | | [address];[place] | | | | | | [address] | | | | + + + + + + | Absolute | 0.5Comment: Testing | 0 - 0.5 K/uL | EXTERNAL | | | Eosinophils | performed at [facility];[address] | | LAB | | | | [address];[place] | | | | | | [address] | | | | + + + + + + | Absolute | 0.0Comment: Testing | 0 - 0.1 K/uL | EXTERNAL | | | Basophils | performed at [facility];[address] | | LAB | | | | [address];[place] | | | | | | [address] | | | | + + + [...] EXTERNAL | | | | performed at [facility];[address] | mmol/L | LAB | | | | [address];[place] | | | | | | [address] | | | | + + + + + + | K | 4.8Comment: Testing | 3.5 - 4.9 | EXTERNAL | | | | performed at [facility];[address] | mmol/L | LAB | | | | [address];[place] | | | | | | [address] | | | | + + + + + + | Cl | 107Comment: Testing | 99 - 109 mmol/L | EXTERNAL | | | | performed at [facility];[address] | | LAB | | | | [address];[place] | | | | | | [address] | | | | + + + + + + | CO2 | 31Comment: Testing | 23 - 32 mmol/L | EXTERNAL | | | | performed at [facility];[address] | | LAB | | | | [address];[place] | | | | | | [address] | | | | + + + + + + | Anion Gap | 7Comment: Testing | 5 - 20 mmol/L | EXTERNAL | | | | performed at [facility];[address] | | LAB | | | | [address];[place] | | | | | | [address] | | | | + + + + + + | Glucose, | 89Comment: Testing | 65 - 99 mg/dL | EXTERNAL | | | Fasting | performed at [facility];[address] | | LAB | | | | [address];[place] | | | | | | [address] | | | | + + + + + + | BUN | 6 (L)Comment: Testing | 8 - 25 mg/dL | EXTERNAL | | | | performed at [facility];[address] | | LAB | | | | [address];[place] | | | | | | [address] | | | | + + + + + + | Creatinine | 4.60 (H)Comment: Testing | 0.70 - 1.30 | EXTERNAL | | | | performed at [facility];[address] | mg/dL | LAB | | | | [address];[place] | | | | | | [address] | | | | + + + + + + | BUN/Creatin | 1Comment: Testing | | EXTERNAL | | | ine Ratio | performed at [facility];[address] | | LAB | | | | [address];[place] | | | | | | [address] | | | | + + + + + + | Calcium | 8.5Comment: Testing | 8.5 - 10.2 | EXTERNAL | | | | performed at [facility];[address] | mg/dL | LAB | | | | [address];[place] | | | | | | [address] | | | | + + + [...] | | | | | | at [facility];[address] [place] [address] | | | | | | Blvd;[place] [address] | | | | + + + [...] EXTERNAL LAB | | Testing performed at [address];[place] [address] MRSA PCR | | | NEGATIVE Testing performed at | | | [address];[place] [address] | | + + + + +---------+ + + | Performing | Address | City/State/Zipcode | Phone Number | | Organization | | | | + +---------+ + + | EXTERNAL LAB | | | | + +---------+ + + documented in this encounter Visit Diagnoses Not on filedocumented in this encounter"
--- OUTSIDE RECORDS SUMMARY | ~2019-12-30 | XMS | Clinical Summary ---
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 | | | | | disease) ([facility]) | | + +--------+ + + + | CULTURE, URINE [facility] | Routin | 11/11/2019 | Type 2 diabetes | Results for this | | | e | 2:07 PM | mellitus with ESRD | procedure are in the | | | | PDT | (end-stage renal | results section. | | | | | disease) ([facility]) | | + +--------+ + + + | CBC AND AUTO DIFF | Routin | 11/11/2019 | Type 2 diabetes | Results for this | | | e | 2:07 PM | mellitus with ESRD | procedure are in the | | | | PDT | (end-stage renal | results section. | | | | | disease) ([facility]) | | + +--------+ + + + | ANTIBODY ELUTION | Routin | 11/11/2019 | Type 2 diabetes | Results for this | | | e | 2:07 PM | mellitus with ESRD | procedure are in the | | | | PDT | (end-stage renal | results section. | | | | | disease) ([facility]) | | + +--------+ + + + | ANTIBODY | Routin | 11/11/2019 | Type 2 diabetes | Results for this | | IDENTIFICATION | e | 2:07 PM | mellitus with ESRD | procedure are in the | | | | PDT | (end-stage renal | results section. | | | | | disease) ([facility]) | | + +--------+ + + + | AMANDA IGG | Routin | 11/11/2019 | Type 2 diabetes | Results for this | | | e | 2:07 PM | mellitus with ESRD | procedure are in the | | | | PDT | (end-stage renal | results section. | | | | | disease) ([facility]) | | + +--------+ + + + | C3 AMANDA | Routin | 11/11/2019 | Type 2 diabetes | Results for this | | | e | 2:07 PM | mellitus with ESRD | procedure are in the | | | | PDT | (end-stage renal | results section. | | | | | disease) ([facility]) | | + +--------+ + + + | CONFIRMATORY ABO/RH | Routin | 11/11/2019 | Type 2 diabetes | Results for this | | | e | 2:07 PM | mellitus with ESRD | procedure are in the | | | | PDT | (end-stage renal | results section. | | | | | disease) ([facility]) | | + +--------+ + + + | ANTIBODY SCREEN | Routin | 11/11/2019 | Type 2 diabetes | Results for this | | | e | 2:07 PM | mellitus with ESRD | procedure are in the | | | | PDT | (end-stage renal | results section. | | | | | disease) ([facility]) | | + +--------+ + + + | ABO & RH TYPE | Routin | 11/11/2019 | Type 2 diabetes | Results for this | | | e | 2:07 PM | mellitus with ESRD | procedure are in the | | | | PDT | (end-stage renal | results section. | | | | | disease) ([facility]) | | + +--------+ + + + | DRUG SCREEN 9 PANEL, | Routin | 11/11/2019 | Type 2 diabetes | Results for this | | S/P,W/REFLEX QUANT | e | 2:07 PM | mellitus with ESRD | procedure are in the | | | | PDT | (end-stage renal | results section. | | | | | disease) ([facility]) | | + +--------+ + + + | NICOTINE & | Routin | 11/11/2019 | Type 2 diabetes | Results for this | | METABOLITES, SERUM | e | 2:07 PM | mellitus with ESRD | procedure are in the | | | | PDT | (end-stage renal | results section. | | | | | disease) ([facility]) | | + +--------+ + + + | PSA TOTAL, | Routin | 11/11/2019 | Type 2 diabetes | Results for this | | SCREENING, SERUM | e | 2:07 PM | mellitus with ESRD | procedure are in the | | | | PDT | (end-stage renal | results section. | | | | | disease) ([facility]) | | + +--------+ + + + | HEMOGLOBIN A1C, | Routin | 11/11/2019 | Type 2 diabetes | Results for this | | BLOOD | e | 2:07 PM | mellitus with ESRD | procedure are in the | | | | PDT | (end-stage renal | results section. | | | | | disease) ([facility]) | | + +--------+ + + + | QUANTIFERON TB GOLD, | Routin | 11/11/2019 | Type 2 diabetes | Results for this | | BLOOD | e | 2:07 PM | mellitus with ESRD | procedure are in the | | | | PDT | (end-stage renal | results section. | | | | | disease) ([facility]) | | + +--------+ + + + | CMV IGG AND IGM ABS, | Routin | 11/11/2019 | Type 2 diabetes | Results for this | | SERUM | e | 2:07 PM | mellitus with ESRD | procedure are in the | | | | PDT | (end-stage renal | results section. | | | | | disease) ([facility]) | | + +--------+ + + + | NAY QUIROZ VIRUS | Routin | 11/11/2019 | Type 2 diabetes | Results for this | | AB VCA IGG, SERUM | e | 2:07 PM | mellitus with ESRD | procedure are in the | | | | PDT | (end-stage renal | results section. | | | | | disease) ([facility]) | | + +--------+ + + + | VARICELLA ZOSTER | Routin | 11/11/2019 | Type 2 diabetes | Results for this | | IGG, SERUM | e | 2:07 PM | mellitus with ESRD | procedure are in the | | | | PDT | (end-stage renal | results section. | | | | | disease) ([facility]) | | + +--------+ + + + | RPR SERUM | Routin | 11/11/2019 | Type 2 diabetes | Results for this | | | e | 2:07 PM | mellitus with ESRD | procedure are in the | | | | PDT | (end-stage renal | results section. | | | | | disease) ([facility]) | | + +--------+ + + + | HEPATITIS C VIRUS | Routin | 11/11/2019 | Type 2 diabetes | Results for this | | W/CONFIRMATION | e | 2:07 PM | mellitus with ESRD | procedure are in the | | | | PDT | (end-stage renal | results section. | | | | | disease) ([facility]) | | + +--------+ + + + | HIV-1,2 AB/HIV-1 P24 | Routin | 11/11/2019 | Type 2 diabetes | Results for this | | AG SCRN | e | 2:07 PM | mellitus with ESRD | procedure are in the | | | | PDT | (end-stage renal | results section. | | | | | disease) ([facility]) | | + +--------+ + + + | HEPATITIS B SURFACE | Routin | 11/11/2019 | Type 2 diabetes | Results for this | | AG W/REFLEX IF | e | 2:07 PM | mellitus with ESRD | procedure are in the | | INDICATED | | PDT | (end-stage renal | results section. | | | | | disease) ([facility]) | | + +--------+ + + + | HEPATITIS B SURFACE | Routin | 11/11/2019 | Type 2 diabetes | Results for this | | AB QUAL, SERUM | e | 2:07 PM | mellitus with ESRD | procedure are in the | | | | PDT | (end-stage renal | results section. | | | | | disease) ([facility]) | | + +--------+ + + + | HEPATITIS B CORE AB, | Routin | 11/11/2019 | Type 2 diabetes | Results for this | | SERUM | e | 2:07 PM | mellitus with ESRD | procedure are in the | | | | PDT | (end-stage renal | results section. | | | | | disease) ([facility]) | | + +--------+ + + + | HEPATITIS A AB, IGG | Routin | 11/11/2019 | Type 2 diabetes | Results for this | | | e | 2:07 PM | mellitus with ESRD | procedure are in the | | | | PDT | (end-stage renal | results section. | | | | | disease) ([facility]) | | + +--------+ + + + | RUBELLA IGG AB, | Routin | 11/11/2019 | Type 2 diabetes | Results for this | | SERUM | e | 2:07 PM | mellitus with ESRD | procedure are in the | | | | PDT | (end-stage renal | results section. | | | | | disease) ([facility]) | | + +--------+ + + + | MUMPS IGG AB, SERUM | Routin | 11/11/2019 | Type 2 diabetes | Results for this | | | e | 2:07 PM | mellitus with ESRD | procedure are in the | | | | PDT | (end-stage renal | results section. | | | | | disease) ([facility]) | | + +--------+ + + + | IVONNE (TESSA) | Routin | 11/11/2019 | Type 2 diabetes | Results for this | | IGG | e | 2:07 PM | mellitus with ESRD | procedure are in the | | | | PDT | (end-stage renal | results section. | | | | | disease) ([facility]) | | + +--------+ + + + | CULTURE, URINE BACTI | Routin | 11/11/2019 | Type 2 diabetes | Results for this | | | e | 2:07 PM | mellitus with ESRD | procedure are in the | | | | PDT | (end-stage renal | results section. | | | | | disease) ([facility]) | | + +--------+ + + + | URINE, MICROSCOPIC | Routin | 11/11/2019 | Type 2 diabetes | Results for this | | EXAM | e | 2:07 PM | mellitus with ESRD | procedure are in the | | | | PDT | (end-stage renal | results section. | | | | | disease) ([facility]) | | + +--------+ + + + | UA, DIPSTICK ONLY | Routin | 11/11/2019 | Type 2 diabetes | Results for this | | | e | 2:07 PM | mellitus with ESRD | procedure are in the | | | | PDT | (end-stage renal | results section. | | | | | disease) ([facility]) | | + +--------+ + + + | INR | Routin | 11/11/2019 | Type 2 diabetes | Results for this | | | e | 2:07 PM | mellitus with ESRD | procedure are in the | | | | PDT | (end-stage renal | results section. | | | | | disease) ([facility]) | | + +--------+ + + + | APTT (ACT. PART. | Routin | 11/11/2019 | Type 2 diabetes | Results for this | | THROMBO TIME) | e | 2:07 PM | mellitus with ESRD | procedure are in the | | | | PDT | (end-stage renal | results section. | | | | | disease) ([facility]) | | + +--------+ + + + | CBC, WITH | Routin | 11/11/2019 | Type 2 diabetes | Results for this | | DIFFERENTIAL | e | 2:07 PM | mellitus with ESRD | procedure are in the | | | | PDT | (end-stage renal | results section. | | | | | disease) ([facility]) | | + +--------+ + + + | TYPE AND SCREEN | Routin | 11/11/2019 | Type 2 diabetes | Results for this | | | e | 2:07 PM | mellitus with ESRD | procedure are in the | | | | PDT | (end-stage renal | results section. | | | | | disease) ([facility]) | | + +--------+ + + + | CHOLESTEROL TOTAL, | Routin | 11/11/2019 | Type 2 diabetes | Results for this | | PLASMA | e | 2:07 PM | mellitus with ESRD | procedure are in the | | | | PDT | (end-stage renal | results section. | | | | | disease) ([facility]) | | + +--------+ + + + | LDH TOTAL, PLASMA | Routin | 11/11/2019 | Type 2 diabetes | Results for this | | | e | 2:07 PM | mellitus with ESRD | procedure are in the | | | | PDT | (end-stage renal | results section. | | | | | disease) ([facility]) | | + +--------+ + + + | BILIRUBIN DIRECT | Routin | 11/11/2019 | Type 2 diabetes | Results for this | | | e | 2:07 PM | mellitus with ESRD | procedure are in the | | | | PDT | (end-stage renal | results section. | | | | | disease) ([facility]) | | + +--------+ + + + | URIC ACID, PLASMA | Routin | 11/11/2019 | Type 2 diabetes | Results for this | | | e | 2:07 PM | mellitus with ESRD | procedure are in the | | | | PDT | (end-stage renal | results section. | | | | | disease) ([facility]) | | + +--------+ + + + | PHOSPHORUS, PLASMA | Routin | 11/11/2019 | Type 2 diabetes | Results for this | | | e | 2:07 PM | mellitus with ESRD | procedure are in the | | | | PDT | (end-stage renal | results section. | | | | | disease) ([facility]) | | + +--------+ + + + | MAGNESIUM, PLASMA | Routin | 11/11/2019 | Type 2 diabetes | Results for this | | | e | 2:07 PM | mellitus with ESRD | procedure are in the | | | | PDT | (end-stage renal | results section. | | | | | disease) ([facility]) | | + +--------+ + + + | COMPLETE METABOLIC | Routin | 11/11/2019 | Type 2 diabetes | Results for this | | SET | e | 2:07 PM | mellitus with ESRD | procedure are in the | | (NA,K,CL,CO2,BUN,CRE | | PDT | (end-stage renal | results section. | | AT,GLUC,CA,AST,ALT,B | | | disease) ([facility]) | | | BASHIR TOTAL,ALK | | [...] | | | | | | disease) ([facility]) | | + +--------+ + + + | LIT HLA-A LOW RES-KE | Routin | 11/11/2019 | Type 2 diabetes | | | | e | 2:07 PM | mellitus with ESRD | | | | | PDT | (end-stage renal | | | | | | disease) ([facility]) | | + +--------+ + + + | LIT HLA-B LOW RES-KE | Routin | 11/11/2019 | Type 2 diabetes | | | | e | 2:07 PM | mellitus with ESRD | | | | | PDT | (end-stage renal | | | | | | disease) ([facility]) | | + +--------+ + + + | LIT HLA-C LOW RES-KE | Routin | 11/11/2019 | Type 2 diabetes | | | | e | 2:07 PM | mellitus with ESRD | | | | | PDT | (end-stage renal | | | | | | disease) ([facility]) | | + +--------+ + + + | LIT HLA-DR LOW | Routin | 11/11/2019 | Type 2 diabetes | | | RES-KE | e | 2:07 PM | mellitus with ESRD | | | | | PDT | (end-stage renal | | | | | | disease) ([facility]) | | + +--------+ + + + | LIT HLA-DP LOW RES- | Routin | 11/11/2019 | Type 2 diabetes | | | KE | e | 2:07 PM | mellitus with ESRD | | | | | PDT | (end-stage renal | | | | | | disease) ([facility]) | | + +--------+ + + + | LIT FLOW HLA II AB | Routin | 11/11/2019 | Type 2 diabetes | | | AG ID KE, BLOOD | e | 2:07 PM | mellitus with ESRD | | | | | PDT | (end-stage renal | | | | | | disease) ([facility]) | | + +--------+ + + + | LIT FLOW HLA I AB ID | Routin | 11/11/2019 | Type 2 diabetes | Results for this | | KE, BLOOD | e | 2:07 PM | mellitus with ESRD | procedure are in the | | | | PDT | (end-stage renal | results section. | | | | | disease) ([facility]) | | + +--------+ + + + [...] by | | | | | | [address] | | | | | | [place], [facility],[place] | | | | | | [address] | | | | | | [phone].Xceliant. | | | | | | Mio [...] [facility] | [address] | [place], [place] | | | UNIV PTH - INTFC | | [address] | | + + + + + [...] | + + + + + | [facility] - | [address] | [place] [address] | | | [place] | | | | + + + [...] + + + + + | [facility] | [address] | [place] [address] | | | SERVICES, [address] | [address] [...] + | [facility] - | [address] | [place] [address] | | | [place] | | | | + + + [...] | | | | | determined by [facility] | | | | | | Laboratories. See | | | | | | Compliance Statement B: | | | | | | [email or web address]/CSPerformed | | | | | | by [facility],[address] | | | | [address], [place] | | | | | | [address] | | | | | | [phone].Shareable Inklab. | | | | | | Mio [...] [facility] | [address] | [place], [place] | | | UN[facility] PTH - INTFC | | [address] | | + + + + + [...] [facility] | [address] | [place] [address] | | | SERVICES, | [address] [...] | + + + + + | [facility] | [address] | [place] [address] | | | SERVICES, | [address] [...] [facility] | [address] | [place] [address] | | | SERVICES, CORE | PARK [...] | + + + + + | [facility] | [address] | [place] [address] | | | SERVICES, CORE | PARK [...] [facility] | [address] | [place] [address] | | | SERVICES, | [address] [...] [facility] - | [address], | [place] [address] | | | IMMUNOGENETICS/TRANS | [address] [...] [address] | | | | | | [facility], [place] [address] | | | | | | [phone].Shareable Inklab. | | | | | | Mio [...] [facility] | [address] | [place], [place] | | | UNIV PTH - INTFC | | [address] | | + + + + + [...] [facility] | | | NIL | by [employer],[address] | | REG UNIV | | | | [place], [place] | | PTH - INTFC | | | | [address] | | | | | | [phone].Shareable Inklab. | | | | | | Mio [...] (http://www.cdc.gov/mmwr | | | | | | /preview/mmwrhtml/mf9457 | | | | | | [email or web address].htm), [...] [facility] | [address] | [place], [place] | | | UNIV PTH - INTFC | | [address] | | + + + + + [...] [facility] - | [address] | [place] [address] | | | IMMUNOGENETICS/TRANS | [address] [...] | [facility] - | [address] | [place] [address] | | | IMMUNOGENETICS/TRANS | [address] [...] [facility] | [address] | [place] [address] | | | SERVICES, | [address] [...] [facility] - | [address], | [place] [address] | | | IMMUNOGENETICS/TRANS | [address] [...] [facility] - | [address], | [place] [address] | | | IMMUNOGENETICS/TRANS | [address] [...] + + | [facility] - | [address] | [place] [address] | | | IMMUNOGENETICS/TRANS | [address] [...] | [facility] - | [address] | [place] [address] | | | IMMUNOGENETICS/TRANS | [address] [...] - | [address] | [place], [place] | | | IMMUNOGENETICS/TRANS | [address] [...] - | [address] | [place], [place] | | | IMMUNOGENETICS/TRANS | [address] [...] [place] | | | | | | [address] | | | | | | [phone].aruplab. | | | | | | Mio [...] [facility] | [address] | [place], [place] | | | UNIV PTH - INTFC | | [address] | | + + + + + [...] + + + + + | [facility] | [address] [facility] | [place] [address] | | | SERVICES, [address]AL[address] | SALVADOR [...] | + + + + + | [facility] - | [address] | [place] [address] | | | [place] | | | | + + + [...] by | | | | | | [employer],[address] | | | | | | [place] [address], [facility],[place] | | | | | | [address] | | | | | | [phone].Shareable Inklab. | | | | | | Mio [...] [facility] | [address] | [place], [place] | | | UNIV PTH - INTFC | | [address] | | + + + + + [...] + + + + + | [facility] | [address] | [place] [address] | | | SERVICES, CORE | SALVADOR [...] | | | | | determined by [facility] | | | | | | Laboratories. See | | | | | | Compliance Statement B: | | | | | | Xceliant.Toywheel/CSPerformed | | | | | | by [employer],[address] | | | | | | [address] [facility],[place] | | | | | | [address] | | | | | | [phone].Shareable Inklab. | | | | | | Mio [...] [facility] | [address] | [place], [place] | | | UNIV PTH - INTFC | | [address] | | + + + + + [...] | | | LABORATORY | | | [facility] [place] | | | SERVICES, | | | [...] MDRD equation recommended by the National | [facility] | | Kidney Disease Education Program. Estimated [...] + + + + + | [facility] | [address] | [place] [address] | | | SERVICES, CORE | SALVADOR [...] | [facility] | | | GRAVITY | [place] performed by | | LABORATORY | | [...] [facility] | [address] | [place] [address] | | | SERVICESROSALINO | [address] [...] [facility] | [address] | [place] [address] | | | SERVICES, CORE | PARK [...] not detected. The performance of the | [facility] | | TRAFFIC CONTROL FLAGGER HIV Combo test, with or without confirmation, [...] + + + + + | [facility] | [address] | [place] [address] | | | SERVICES, SPECIAL | PARK [...] by | | | | | | [employer],[address] | | | | | | [place], [facility],[place] | | | | | | [address] | | | | | | [phone].Lateral SVjean carloslab. | | | | | | [...] [facility] | [address] | [place], [place] | | | UNIV PTH - INTFC | | [address] | | + + + + + [...] | + + + + + | [facility] - | [address] | [place] [address] | | | [facility] | | | | + + [...] | + + + + + | [facility] | [address] | [place] [address] | | | SERVICES, CORE | PARK [...] [facility] | [address] | [place] [address] | | | SERVICES, | [address] [...] + + + + + | [facility] | [address] | [place] [address] | | | UNA, | [address] [...] [facility] | [address] | [place] [address] | | | SERVICES, | [address] [...] + + + + + | [facility] | [address] | [place] [address] | | | SERVICES, CORE | SALVADOR [...] + + + + + | [facility] | [address] | [place] [address] | | | SERVICES, CORE | PARK [...] [facility] | [address] | [place] [address] | | | SERVICES, CORE | PARK [...] [facility] | [address] | [place] [address] | | | SERVICES, CORE | PARK [...] | [facility] | | considered for monitoring usp glycemic control in patients with: | LABORATORY [...] [facility] | [address] | [place] [address] | | | SERVICES, SPECIAL | SALVAD[address] [...] + + + + + | [facility] | [address] | [place] [address] | | | SERVICES, CORE | SALVADOR [...] [facility] | [address] | [place] [address] | | | SERVICES, CORE | PARK [...] [facility] | [address] | [place] [address] | | | SERVICES, CORE | PARK [...] + + + + + | [facility] | [address] | [place] [address] | | | SERVICES, CORE | SALVADOR [...] [facility] | [address] | [place] [address] | | | SERVICES, CORE | PARK [...] | | | | | | | [address] | | + +--------+ +--------+ + +--------+ | MEDICARE RENAL | MEDICA | xxxxxxxxxxx | 06/24/19 | | RENAL | Agency | | RECIPIENT EVAL | RE | | 13-Pre | | DEPT [id number] | | | | RENAL | | sent | | [place], | | | | RECIPI | | | | [place] [address] | | | | ENT | | | | | | | | EVAL | | | | | | + +--------+ +--------+ + +--------+ | MEDICAID [place] | [facility] | xxxxxxxx | 08/30/19 | [phone] | [address] | Medica | | | PLUS | | 19-Pre | 6 | [phone] | id | | | OPEN | | sent | | [place], [place] | | | | CARD | | | | [address] | | + +--------+ +--------+ + +--------+ + +--------+ +--------+ + + | Guarantor Name | Accoun | Relation to | Date | Phone | Billing Address | | | t Type | Patient | of | | | | | | | | | | + +--------+ +--------+ + + | Tariq,Enrique Jose Rafael | Person | Self | [birth year] | [address] | | | al/Fam | | 1964 [address] [place], [place] | | | juan | | | [address] ([place]) | [phone] | + +--------+ +--------+ + + | Enrique Potter | Specia | Self | [birth year] | | [address] | | | l | | 1964 | [address] [place], [place] | | | [place] | | | [address] ([place]) | [address] | | | g | | | | | + +--------+ +--------+ + +
--- OUTSIDE RECORDS SUMMARY | ~2019-12-30 | XMS | Encounter Summary ---
Demographics + + + | Address | [address] | | | [place] [address] | + + + | Home Phone | | + + + | Preferred Language | Unknown | + + + | Marital Status | Single | + + + | Gnosticist Affiliation | Unknown | + + + | Race | or | + + + | Ethnic Group | Not or | + + + Author + + + | Author | [facility] [facility] | + + + | Organization | [facility] | + + + | [...] Team Providers + +------+ + | Care Picking Crew Supervisor Name | Role | Phone | [...] | | | | | Alicia [place], | [place] [address] | | | | | [place] [address] | | | | | | [phone] | | | +--------+ + + + [...]
--- OUTSIDE RECORDS SUMMARY | ~2019-12-30 | XMS | Encounter Summary ---
Demographics + + + | Address | [address] | | | [place] [address] | + + + | Home Phone | | + + + | Preferred Language | Unknown | + + + | Marital Status | Single | + + + | Presybeterian Affiliation | Unknown | + + + | Race | or | + + + | Ethnic Group | Not or | + + + Author + + + | Author | [facility] | + + + | Organization | [facility] [facility] | + + + | Address | [...] Team Providers + +------+ + | Care Newspaper Distributor Supervisor Name | Role | Phone | + +------+ + | Berenice Hicks | PCP | | + +------+ + Reason for Visit + + + | Reason | Comments | + + + | Pre-Transplant | re-schedule clinic | | Evaluation | | + + + Encounter Details +--------+ + + + + | Date | Type | Department | Care Team | Description | +--------+ + + + + | 11/11/ | Telephone | Clinical | Makenna Sheldon, | Pre-Transplant | | 2020 | | Transplant Services | RN [address] | Evaluation | | | | [address] | [address] | (reschedule [facility]) | | | | Alicia Sharp [place], | [place], [place] | | | | | [place] [address] | [address] | | | | | [phone] | | | +--------+ + + + [...]
--- OUTSIDE RECORDS SUMMARY | ~2019-12-30 | XMS | Encounter Summary ---
Demographics + + + | Address | [address] | | | [place] [address] | + + + | Home Phone | | + + + | Preferred Language | Unknown | + + + | Marital Status | Unknown | + + + | Presybeterian Affiliation | 1076 | + + + | Race | Unknown | + + + | Ethnic Group | Unknown | + + + Author + + + | Author | [facility] | | | and [place] | + + + | Organization | [facility] | | | [...] Team Providers + +------+ + | Care Etl Developer Name | Role | Phone | + +------+ + PCP | Unavailable | + +------+ + Encounter Details +--------+ + + + + | Date | Type | Department | Care Team | Description | +--------+ + + + + | 07/08/ | Hospital | [facility] | Conversion | Pain | | 2013 | Encounter | CONVERSION DEP [address] | Transaction, | | | | | [address] | Provider Unknown | | | | | [place], [place] | | | | | | [address] | (Fax) | | | | | [phone] | | | +--------+ + + + [...] Khalif Palm - 02/06/2019 10:59 AM PDT This is a non-reportable procedure | | without a radiologist report and isused for image storage only | + + documented in this encounter Visit Diagnoses + + | Diagnosis | + + | Pain Generalized pain | + + documented in this encounter"
--- OUTSIDE RECORDS SUMMARY | ~2019-12-30 | XMS | Encounter Summary ---
Demographics + + + | Address | [address] | | | [place] [address] | + + + | Home Phone | | + + + | Preferred Language | Unknown | + + + | Marital Status | Single | + + + | Orthodox Affiliation | Unknown | + + + | Race | or | + + + | Ethnic Group | Not or | + + + Author + + + | Author | [facility] | + + + | Organization | [facility] [facility] | + + + | Address [...] Team Providers + +------+ + | Care Mixer Operator Name | Role | Phone | [...] Physician's | | | | | | [place], [place] | [address], | | | | | | [address] | [facility] floor | | | | | | Phone: | [place], [place] | | | | | | [phone] | [address] | | | | | | Fax: | Phone: | | | | | | [phone] | [phone] | | | | | | | Fax: | | | | | | | [phone] | + +--------+ + + + + [...] for | | | | Physician's | [facility] [place], [place] | chronic kidney | | | | [place], 3rd floor | [address] | disease (Primary | | | | [place], [place] | [phone] | Dx); CKD (chronic | | | | [address] | | kidney disease) | | | | [phone] | | requiring chronic | | | | | | dialysis ([facility]); 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 TRANSPLANT RECIPIENT EVALUATION Today I am seeing Enrique Potter who is a 54 y[address] male whom Dr. Jayy Christianson has asked us t o evaluate as a potential kidney transplant recipient. Patient is in clinic today with a kenneth hopper. 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 HISTORY OF PRESENT ILLNESS: He has chronic kidney disease, stage V, due to Diabetes and Hypertensive Nephrosclerosis wh ich was diagnosed in 2011 by biopsy. He is currently on hemodialysis. Dialysis was started on 04/10/2012 and is currently perfor med on -W- for 3.75 h through an AV fistula [...] file Gets together: Not on file Attends adventist service: Not on file Active member of [...] depression Immunologic/Allergic: No symptoms. Blood Transfusions: yes (2011); VZ: yes; Shingles: yes (2016). Previous transplants: [...] Psychosocial issues. I would defer to the Icing And Glaze Maker Evaluation. Living Donors. Patient was unable to [...] Marin MD [facility] [address] [facility] [address] [place] [address] Patient Active Problem List CKD [...] flow. Gout, unspecified [M10.9] Chronic obstructive asthma ([facility]) [J44.9] On inhalers. Denied prior mechanical ventilation. RED CELL ANTIBODIES - allow additional time for crossmatch [T80.92XA] Patient is sensitized against red cell antigen "K". Approximately 90% of units are expect ed to be compatible. Allow at least 2-3 hours for completion of crossmatch. History of polysubstance abuse ([facility]) [F19.10] Amphetamine and other psychostimulant dependence, continuous 04/02/2012 Quit in 2012 Staphylococcus aureus bacteremia [R78.81, B95.61] MRSA infection 01/2018 Treated with Vancomycin x 6 weeks. History of peptic ulcer disease [K27.9] 2011 GIB requiring transfusions H/O arthroscopy of knee [Z98.890] Chronic systolic (congestive) heart failure ([facility]) [I50.22] History of blood transfusion [Z92.89] 2011 DVT (deep venous thrombosis) ([facility]) [I82.409] Per chart review X 3 documented [...] | + + | Chronic obstructive asthma (HCC) Chronic obstructive asthma, unspecified | + + [...]
--- OUTSIDE RECORDS SUMMARY | ~2019-12-30 | XMS | Encounter Summary ---
Demographics + + + | Address | [address] | | | [place] [address] | + + + | Home Phone | | + + + | Preferred Language | Unknown | + + + | Marital Status | Unknown | + + + | Baptist Affiliation | 1076 | + + + | Race | Unknown | + + + | Ethnic Group | Unknown | + + + Author + + + | Author | [facility] | | | and [place] | + + + | Organization | [facility] | | | [...] Team Providers + +------+ + | Care Corporate Director Of Human Resources Name | Role | Phone | + [...] Unknown | | | | | [facility] [place], [place] | | | | | | [address] | (Fax) | | | | | [phone] | | | +--------+ + + + [...] Procedure Notes Conversion Transaction, Provider Unknown - 02/08/2014 4:54 PM PDTFormatting of this note m ight be different from the original. Pre-Procedure Instructions by Erin Johns RN at 02/08/141653 Author: Erin Johns RN Service: (none) Author Type: Registered Nurse Filed: 02/08/141654 Date of Service: 02/08/141653 Status: Signed Car Repairer Helper: Erin Johns RN (Registered Nurse) [employer] will be driving patient home with as escort. docume nted in this encounter Plan of [...] EXTERNAL LAB | | Testing performed at [address];[place] [address] MRSA PCR | | | NEGATIVE Testing performed at | | | [address];[place] [address] | | + + + + +---------+ [...] | | | Patient | performed at [facility];[address] | | LAB | | | | [address];[place], [place] | | | | | | [address] | | | | + + + [...] | | | | | performed at [facility] | | | | | | [address];[place], [place] | | | | | | [address] | | | | + + + [...] [place] | | | | | | [address] | | | | + + + + + + | Non- | 3.93 (L)Comment: Testing | 4.20 - 5.70 | EXTERNAL | | | Red Blood | performed at [facility];888 | M/uL | LAB | | | Cells | [address];[place] | | | | | Counted | [address] | | | | + + + + + + | Hemoglobin | 12.3 (L)Comment: Testing | 13.2 - 17.0 | EXTERNAL | | | | performed at [facility];888 | g/dL | LAB | | | | [address];[place] | | | | | | [address] | | | | + + + + + + | Hematocrit, | 36.0 (L)Comment: Testing | 39.0 - 50.0 % | EXTERNAL | | | POC | performed at [facility];[address] | | LAB | | | | [address];[place] | | | | | | [address] | | | | + + + + + + | MCV | 91.7Comment: Testing | 80.0 - 100.0 fl | EXTERNAL | | | | performed at [facility];[address] | | LAB | | | | [address];[place] | | | | | | [address] | | | | + + + + + + | MCH | 31.2Comment: Testing | 27.0 - 34.0 pg | EXTERNAL | | | | performed at [facility];[address] | | LAB | | | | [address];[place] | | | | | | [address] | | | | + + + + + + | MCHC | 34.1Comment: Testing | 32.0 - 35.5 | EXTERNAL | | | | performed at [facility];888 | g/dL | LAB | | | | [address];[place] | | | | | | [address] | | | | + + + + + + | RDW-CV | 49.4Comment: Testing | 37 - 53 fl | EXTERNAL | | | | performed at [facility];[address] | | LAB | | | | [address];[place] | | | | | | [address] | | | | + + + + + + | Platelet | 249Comment: Testing | 150 - 400 K/uL | EXTERNAL | | | Count | performed at [facility];[address] | | LAB | | | Plasma | [address];[place] | | | | | | [address] | | | | + + + + + + | MPV | 6.7Comment: Testing | fl | EXTERNAL | | | | performed at [facility];[address] | | LAB | | | | [address];[place] | | | | | | [address] | | | | + + + + + + | Differentia | AUTOMATEDComment: | | EXTERNAL | | | l Type | Testing performed at | | LAB | | | | [facility];[address];[place] [address] | | | | + + + + + + | % Segmented | 67.3Comment: Testing | % | EXTERNAL | | | | performed at [facility];[address] | | LAB | | | Neutrophils | [address];[place] | | | | | | [address] | | | | + + + + + + | % | 15.7Comment: Testing | % | EXTERNAL | | | Lymphocytes | performed at [facility];[address] | | LAB | | | | [address];[place] | | | | | | [address] | | | | + + + + + + | % Monocytes | 9.9Comment: Testing | % | EXTERNAL | | | | performed at [facility];[address] | | LAB | | | | [address];[place] | | | | | | [address] | | | | + + + + + + | % | 6.7Comment: Testing | % | EXTERNAL | | | Eosinophils | performed at [facility];[address] | | LAB | | | | [address];[place] | | | | | | [address] | | | | + + + + + + | % Basophils | 0.4Comment: Testing | % | EXTERNAL | | | | performed at [facility];[address] | | LAB | | | | [address];[place] | | | | | | [address] | | | | + + + + + + | Absolute | 4.2Comment: Testing | 1.9 - 7.4 K/uL | EXTERNAL | | | Segmented | performed at [facility];[address] | | LAB | | | Neutrophils | [address];[place] | | | | | | [address] | | | | + + + + + + | Absolute | 1.0Comment: Testing | 1.0 - 3.9 K/uL | EXTERNAL | | | Lymphocytes | performed at [facility];[address] | | LAB | | | | [address];[place] | | | | | | [address] | | | | + + + + + + | Absolute | 0.6Comment: Testing | 0 - 0.8 K/uL | EXTERNAL | | | Monocytes | performed at [facility];[address] | | LAB | | | | [address];[place] | | | | | | [address] | | | | + + + + + + | Absolute | 0.4Comment: Testing | 0 - 0.5 K/uL | EXTERNAL | | | Eosinophils | performed at [facility];[address] | | LAB | | | | [address];[place] | | | | | | [address] | | | | + + + + + + | Absolute | 0.0Comment: Testing | 0 - 0.1 K/uL | EXTERNAL | | | Basophils | performed at [facility];[address] | | LAB | | | | [address];[place] | | | | | | [address] | | | | + + + [...] [place] | | | | | | [address] | | | | + + + + + + | Cl | 96 (L)Comment: Testing | 99 - 109 mmol/L | EXTERNAL | | | | performed at [facility];[address] | | LAB | | | | [address];[place] | | | | | | [address] | | | | + + + + + + | CO2 | 35 (H)Comment: Testing | 23 - 32 mmol/L | EXTERNAL | | | | performed at [facility];[address] | | LAB | | | | [address];[place] | | | | | | [address] | | | | + + + + + + | Anion Gap | 11Comment: Testing | 5 - 20 mmol/L | EXTERNAL | | | | performed at [facility];[address] | | LAB | | | | [address];[place] | | | | | | [address] | | | | + + + + + + | Glucose, | 176 (H)Comment: Testing | 65 - 99 mg/dL | EXTERNAL | | | Fasting | performed at [facility];[address] | | LAB | | | | [address];[place] | | | | | | [address] | | | | + + + + + + | BUN | 12Comment: Testing | 8 - 25 mg/dL | EXTERNAL | | | | performed at [facility];[address] | | LAB | | | | [address];[place] | | | | | | [address] | | | | + + + + + + | Creatinine | 4.53 (H)Comment: Testing | 0.70 - 1.30 | EXTERNAL | | | | performed at [facility];888 | mg/dL | LAB | | | | [address];[place] | | | | | | [address] | | | | + + + + + + | BUN/Creatin | 3Comment: Testing | | EXTERNAL | | | ine Ratio | performed at [facility];[address] | | LAB | | | | [facility];[place] | | | | | | [address] | | | | + + + + + + | Calcium | 8.2 (L)Comment: Testing | 8.5 - 10.2 | EXTERNAL | | | | performed at [facility];888 | mg/dL | LAB | | | | [address];[place] | | | | | | [address] | | | | + + + [...] [facility];[address];[place] [address] | | | | + + + [...]
--- OUTSIDE RECORDS SUMMARY | ~2019-12-30 | XMS | Encounter Summary ---
Demographics + + + | Address | [address] | | | [place] [address] | + + + | Home Phone [...] + + | Author | [facility] | | | and [place] | + + + | Organization | [facility] | | [...] Team Providers + +------+ + | Care Yeast Pusher Name | Role | Phone | + +------+ + PCP | Unavailable | + +------+ + Encounter Details +--------+ + + + + | Date | Type | Department | Care Team | Description | +--------+ + + + + | 02/15/ | Hospital | [facility] | Katie, | ESRD (end stage | | 2017 - | Encounter | [facility] | MD Frank [address] | renal disease) on | | | | CARE FLOOR [address] | dialysis (HCC); | | 02/19/ | | [address] | [place] [address] | Corneal ulcer, | | 2017 | | [place] | [phone] | right; Acidemia; | | | | [address] | | Hyperkalemia; Rash | | | | [phone] | | | +--------+ + + + [...] 1137 Date of Service: 02/19/171122 Status: Signed Bail Bond Agent: Khanh Rangel MD (Physician) [facility] Service: Hospitalist Discharge Summary Date of Admission: 02/15/2017 Date of Discharge: 02/19/2017 Discharge Provider: Khanh Rangel MD Treatment Team: Consulting Physician: Fela Mayberry MD Admitting Provider: Frank Haji MD Discharge Diagnoses: Principal Problem: ESRD (end stage renal disease) on dialysis ([facility]) Active Problems: Diabetes mellitus with ESRD (end-stage [...] Dr Timmons and even tually went to [facility] and he was then transferred to [facility] for management. His labs showed stable CBC [...] pictures were forwa rded to Dr. Mitchell cardiology clinical consultant from Dermatology services who agreed with [...] any more, no symptoms AV fistula ([facility]) lt arm 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 Chronic obstructive asthma with exacerbation ([facility]) 10/27/2013 Chronic systolic heart failure ([facility]) 09/10/2016 Diabetes mellitus type I ([facility]) Dialysis patient ([facility]) DVT (deep venous thrombosis) ([facility]) x3 GI bleed 04/30/2012 from coumadin Gout Hyperkalemia 11/09/2013 Hyperlipidemia Hyperphosphatemia 05/24/2012 Hypertension Hyponatremia 09/08/2016 Knee pain, right 07/06/2012 MSSA (methicillin susceptible Staphylococcus aureus) infection 04/11/2012 Neuromuscular disorder ([facility]) neuropathy 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[facility]) 05/01/2012 Rash and nonspecific skin eruption 04/03/2012 SOB (shortness of breath) 10/27/2013 Thyroid disease Walker as ambulation aid Past Surgical History Procedure Laterality Date AV FISTULA PLACEMENT Right 02/09/2014 Procedure: AV FISTULA; Surgeon: Oskar Meyer MD; Location: [facility] MAIN OR; Service: Vascula r; Laterality: Right; AV FISTULA PLACEMENT Left 05/06/2012 Procedure: AV FISTULA; Surgeon: Oskar Meyer MD; Location: [facility] MAIN OR; Service: Vascula r; Laterality: Left; Left arm possible right AV FISTULA REPAIR Left 07/11/2012 Procedure: AV FISTULA - GRAFT REPAIR/REVISION; Surgeon: Oskar Meyer MD; Location: [facility] IN OR; Service: Vascular; Laterality: Left; Superficialization of brachiobasilic fistula and right IJ perm cath insertion CATHETER REMOVAL Right 07/07/2012 Procedure: DIALYSIS CATHETER - REMOVAL; Surgeon: Oskar Meyer MD; [facility]; Service: General; Laterality: Right; perm cath COLONOSCOPY WITH EGD N/A 05/01/2012 Procedure: COLONOSCOPY W/ EGD; Surgeon: John Singleton MD; Location: [facility] ENDOSCOPY; Ser vice: Gastroenterology; Laterality: N/A; DIALYSIS FISTULA CREATION Left 07/11/2012 Procedure: DIALYSIS CATHETER - INSERTION; Surgeon: Oskar Meyer MD; Location: [facility] MAIN OR ; Service: Vascular; Laterality: Left; removed dialysis catheter from left neck and place d new on in left chest, attempted in right neck but unable to place DIALYSIS FISTULA CREATION Left 07/07/2012 Procedure: DIALYSIS CATHETER - INSERTION; Surgeon: Oskar Meyer MD; Location: [facility] BEDSIDE PROCEDURE; Service: General; Laterality: Left; temporary dialysis catheter KNEE ARTHROSCOPY Right 07/07/2012 Procedure: KNEE - ARTHROSCOPY; Surgeon: Favio Raza MD; Location: [facility] MAIN OR; rvice: Orthopedics; Laterality: Right; After 1530 SUPERFICIALIZATION OF AV FISTULA Right 03/30/2014 Procedure: AV FISTULA - SUPERFICIALIZATION; Surgeon: Oskar Meyer MD; Location: [facility] MAIN OR; Service: Vascular; Laterality: Right; [...] with in pulled out bed and Isrrael arzatemariela in room. No apparent distress. Conversive and [...] venogra m 5. Right brachiocephalic/subclavian venous angioplasty [employer]: Jimenez Garnica MD, PhD, RPVI PROCEDURE: Informed [...] not pass into the SVC. An 8 Iranian sheath wa s placed and a central venogram was performed which demonstrated a brachiocephalicA/SVC conf luence focal stenosis. Using multiple obliquities, the catheter and wire were successfully p assed beyond the stent into the inferior vena cava. Patient was heparinized An 10 Iranian she ath was placed. A wire and [...] and a small incision was made. A 14.5-Iranian Palindrom e 23 cm tip to cuff [...] reviewed and interpreted by the physicia demetrius identified as the performing physician in the associated interpretation and report. PLAN Discharge to home with in stable condition. Code Status: Full Code No discharge procedures on file. Follow [place]: [place] [id number] [place] [address] In 1 week Fela Mayberry MD [address] [place] [address] In 1 week HD as scheduled. Medication [...] 02/19/171815 Date of Service: 02/19/171815 Status: Signed Bail Bond Agent: Britta Hussein RN (Registered Nurse) Pt. being [...] (none) Author Type: Registered Nurse Filed: 02/19/17 1740 Date of Service: 02/19/171738 Status: Signed Bail Bond Agent: Pamela Burch RN (Registered Nurse) CM discussed D/C plans with pt. [place]. Upon discharge wanted meal voucher and stated no ride was available. I called people to pe ople and they declined transport based [place] and pt came to hospital via POV. Wif e stated ride coming, now wants gas voucher. has a history of requesting these service s with every admission. Gas voucher was declined. onver quique Transaction, Provider Unknown - 02/19/2017 6:42 AM PDT Nurse Progress Note by Valorie Hannah RN at 02/19/17641 Author: Valorie Hannah RN Service: (none) Author Type: Registered Nurse Filed: 02/19/17642 Date of Service: 02/19/17641 Status: Signed Bail Bond Agent: Valorie Hannah RN (Registered Nurse) No changes to initial assessment. Medicated once for pain. No further bleeding noted from t he groin. Will continue to monitor onver quique Transaction, Provider Unknown - 02/19/2017 4:03 AM PDT Nurse Progress Note by Valorie Hannah RN at 02/19/17402 Author: Valorie Hannah RN Service: (none) Author Type: Registered Nurse Filed: 02/19/17402 Date of Service: 02/19/17402 Status: Signed Bail Bond Agent: Valorie Hannah RN (Registered Nurse) 24 hour chart check complete VALORIE HANNAH RN 02/19/2017 4:03 AM onver quique Transaction, Provider Unknown - 02/18/2017 10:23 PM PDT Nurse Progress Note by Valorie Hannah RN at 02/18/172222 Author: Valorie Hannah RN Service: (none) Author Type: Registered Nurse Filed: 02/18/172226 Date of Service: 02/18/172222 Status: Signed Bail Bond Agent: Valorie Brown, RN (Registered Nurse) Patient sitting in chair [...] 02/18/171830 Date of Service: 02/18/171820 Status: Signed Bail Bond Agent: Jose Allan MD (Physician) [facility] Service: Hospitalist Progress Note Carol Potter 51 y.o. [phone] [id number] male [facility] Day: LOS: 1 day SUBJECTIVE [...] with Dr Timmons and eventually went to [facility] and he was then transferred to [facility] for management. His labs showed stable CBC [...] lesion pictures were forwarded to Dr. Mitchell cardiology clinical consultant from Dermatology services who agreed with [...] (end stage renal disease) on dialysis ([facility]) Active Problems: Rash Diabetes mellitus with ESRD (end-stage renal disease) ([facility]) HTN (hypertension) Hyponatremia Eczema of both upper extremities ASSESSMENT & PLAN End Stage Renal Disease on Hemodialysis: Nephrology services is on board and resumed hemod ialysis via femoral dialysis. S/P Tunneled dialysis catheter placement today by Dr. Danika powersut any complications. Dr. Mayberry is managing dialysis, [...] 02/18/171652 Date of Service: 02/18/171652 Status: Signed Bail Bond Agent: Britta Hussein RN (Registered Nurse) Diet advanced per order, pt tolerating well. New tunneled catheter site oozing blood, sand bag applied. Bleeding slowing down. Will monitor. onver quique Transaction, Provider Unknown - 02/17/2017 12:49 PM PDT Nurse Progress Note by Maude Fitzgerald RN at 02/17/17 5928 Author: Maude Fitzgerald RN Service: (none) Author Type: Registered Nurse Filed: 02/17/17 1885 Date of Service: 02/17/17 8725 Status: Signed Bail Bond Agent: Maude Fitzgerald RN (Registered Nurse) Pt has skin lesions on left forearm, right antecubital/bicep, bilateral nipples, and left c halfway. Per MD place fluocinonide cream onto lesions [...] Author: VANDANA Godwin Service: (none) Author Type: Vacuum Caster Filed: 02/17/171107 Date of Service: 02/17/171105 Status: Signed Bail Bond Agent: VANDANA Godwin (Vacuum Caster) 02/17/17 1100 Discharge Planning Evaluation Admitting Diagnosis [...] reason he was admitted, pt lives in [facility] with spouse and 2 sons, pt is indpt with adls, iadls, no dme, temp dialysis cathet er placed - pt [facility] [place] [facility] [place] W, F - sister transports [...] DCP: home with spouse Quinn Quiñonez Jose Amador, MD - 02/17/2017 8:21 AM PDTFormatting of this note might be different from t barbie original. Progress Notes by Jose Allan MD at 02/17/17820 Author: Jose Allan MD Service: Hospitalist Author Type: Physician Filed: 02/17/17 1924 Date of Service: 02/17/17820 Status: Signed Bail Bond Agent: Jose Allan MD (Physician) [facility] Service: Hospitalist Progress Note Carol Potter 51 y.o. [phone] [id number] male [facility] Day: LOS: 0 days SUBJECTIVE Patient [...] with Dr Timmons and eventually went to [facility] and he was then transferred to [facility] for management. His labs showed stable CBC [...] lesion pictures were forwarded to Dr. Mitchell cardiology clinical consultant from Dermatology services who agreed with [...] (end stage renal disease) on dialysis ([facility]) Active Problems: Rash Diabetes mellitus with ESRD (end-stage renal disease) ([facility]) HTN (hypertension) Hyponatremia Eczema of both upper [...] 02/16/172122 Date of Service: 02/16/172120 Status: Signed Bail Bond Agent: Sandrita Littlejohn RN (Registered Nurse) Hemodialysis Treatment [...] 02/16/171845 Date of Service: 02/16/171843 Status: Signed Bail Bond Agent: Tracey Cantu RN (Registered Nurse) Pt had unsuccessful IJ placement. Femoral placement successful. Pt currently receiving dial ysis and VS stable. PICC nurse came and placed a PIV in left arm. [facility] Tracey Cantu RN Jose Amador MD - 02/16/2017 9:25 AM PDTFormatting of this note might be different from t barbie original. Progress Notes by Jose Allan MD at 02/16/17924 Author: Jose Allan MD Service: Hospitalist Author Type: Physician Filed: 02/16/17 1737 Date of Service: 02/16/17924 Status: Signed Bail Bond Agent: Jose Allan MD (Physician) [facility] Service: Hospitalist Progress Note Carol Potter 51 y.o. [phone] [id number] male [facility] Day: LOS: 0 days SUBJECTIVE Patient [...] with Dr Timmons and eventually went to [facility] and he was then transferred to [facility] for management. His labs showed stable CBC [...] QTC Calculation (Bezet) 488 ms Calculated P [place] 47 degrees Calculated R [place] 12 degrees Calculated T [place] 70 degrees Diagnosis Sinus rhythm with 1st [...] Confirmed by MUSE READ ONLY, -COMPUTER (500), content editor ANA M NAVARRO (125) on 02/16/2017 [...] QTC Calculation (Bezet) 516 ms Calculated P [place] 59 degrees Calculated R [place] 24 degrees Calculated T [place] 73 degrees Diagnosis Sinus rhythm with 1st [...] Range COLOR UA STRAW CLARITY CLEAR Specific [place], UA 1.012 1.002 - 1.030 LEUKOCYTE ESTERASE [...] Service: (none) Author Type: Registered Nurse Filed: 02/16/17658 Date of Service: 02/16/17656 Status: Signed Bail Bond Agent: Marc Chang RN (Registered Nurse) Critical lab value, CO2-12 received from TC. Called to Makenna Velasco RN with read back. Ramón Chang RN onver quique Transaction, Provider Unknown - 02/16/2017 5:29 AM PDT Progress Notes by Xavier Toro RPH at 02/16/17528 Author: Xavier Toro RPH Service: Pharmacy Author Type: Pharmacist Filed: 02/16/17528 Date of Service: 02/16/17528 Status: Signed Bail Bond Agent: Xavier Toro RPH (Pharmacist) Note ccl 6.1ml/min [...] 0002 Date of Service: 02/15/172205 Status: Addendum Bail Bond Agent: Frank Haji MD (Physician) Related Notes: Original Note by Frank Haji MD (Physician) filed at 02/15/172229 [facility] Service: Hospitalist Admission History & [...] recommended t o follow up with his director federal for further assessment. He did not go, per patient, he was not able to get in touch with Dr Timmons. He went to [facility] ED for further asse ssment, subsequently, and was told that there was no need for transfer since his labs and ph ysical exam were within normal limits. After 1 week without therapy, his got concerned and brought the patient to [facility] for further management. Here at [facility], patient denies any chest pain, dyspnea, cough, [...] any more, no symptoms AV fistula ([facility]) lt arm 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 Chronic obstructive asthma with exacerbation ([facility]) 10/27/2013 Chronic systolic heart failure ([facility]) 09/10/2016 Diabetes mellitus type I ([facility]) Dialysis patient ([facility]) DVT (deep venous thrombosis) ([facility]) x3 GI bleed 04/30/2012 from coumadin Gout Hyperkalemia 11/09/2013 Hyperlipidemia Hyperphosphatemia 05/24/2012 Hypertension Hyponatremia 09/08/2016 Knee pain, right 07/06/2012 MSSA (methicillin susceptible Staphylococcus aureus) infection 04/11/2012 Neuromuscular disorder ([facility]) neuropathy 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[facility]) 05/01/2012 Rash and nonspecific skin eruption 04/03/2012 SOB (shortness of breath) 10/27/2013 Thyroid disease Walker as ambulation aid Past Surgical History Procedure Laterality Date AV FISTULA PLACEMENT Right 02/09/2014 Procedure: AV FISTULA; Surgeon: Oskar Meyer MD; Location: [facility] MAIN OR; Service: Vascula r; Laterality: Right; AV FISTULA PLACEMENT Left 05/06/2012 Procedure: AV FISTULA; Surgeon: Oskar Meyer MD; Location: [facility] MAIN OR; Service: Vascula r; Laterality: Left; Left arm possible right AV FISTULA REPAIR Left 07/11/2012 Procedure: AV FISTULA - GRAFT REPAIR/REVISION; Surgeon: Oskar Meyer MD; Location: [facility] IN OR; Service: Vascular; Laterality: Left; Superficialization of brachiobasilic fistula and right IJ perm cath insertion CATHETER REMOVAL Right 07/07/2012 Procedure: DIALYSIS CATHETER - REMOVAL; Surgeon: Oskar Meyer MD; Location: [facility] P ROCEDURE; Service: General; Laterality: Right; perm cath COLONOSCOPY WITH EGD N/A 05/01/2012 Procedure: COLONOSCOPY W/ EGD; Surgeon: John Singleton MD; Location: [facility] ENDOSCOPY; Ser vice: Gastroenterology; Laterality: N/A; DIALYSIS FISTULA CREATION Left 07/11/2012 Procedure: DIALYSIS CATHETER - INSERTION; Surgeon: Oskar Meyer MD; Location: [facility] MAIN OR ; Service: Vascular; Laterality: Left; removed dialysis catheter from left neck and place d new on in left chest, attempted in right neck but unable to place DIALYSIS FISTULA CREATION Left 07/07/2012 Procedure: DIALYSIS CATHETER - INSERTION; Surgeon: Oskar Meyer MD; Location: [facility] BEDSIDE PROCEDURE; Service: General; Laterality: Left; temporary dialysis catheter KNEE ARTHROSCOPY Right 07/07/2012 Procedure: KNEE - ARTHROSCOPY; Surgeon: Favio Raza MD; Location: [facility] MAIN OR; rvice: Orthopedics; Laterality: Right; After 1530 SUPERFICIALIZATION OF AV FISTULA Right 03/30/2014 Procedure: AV FISTULA - SUPERFICIALIZATION; Surgeon: Oskar Meyer MD; Location: [facility] MAIN OR; Service: Vascular; Laterality: Right; [...] KIDS. CURRENTLY UNEMPLOYED, BEFOR E WORKED AT [employer] IN [place]. Quit METHAMPHETAMINES PER PATIENT after t he [...] Value Units Date/Time Blood culture, set 2 [[id number]] Collected: 02/15/172023 Specimen: Blood from Blood Line Draw Updated: 02/15/172144 Blood Culture Set 1 [[id number]] Collected: 02/15/172017 Specimen: Blood from Blood, peripheral draw Updated: 02/15/172143 Cardiac Panel [[id number]] (Abnormal) Collected: 02/15/172017 Updated: 02/15/172106 WBC 7.95 [...] ng/mL CK-MB Index 5.5 Septic Lactic Acid [[id number]] Collected: 02/15/172023 Updated: 02/15/172105 LACTIC ACID 0.5 mmol/L BNP [[id number]] (Abnormal) Collected: 02/15/172017 Specimen: Blood Updated: 02/15/172101 BRAIN NATRIURETIC PEPTIDE 253 (H) pg/mL Ammonia level [[id number]] Collected: 02/15/172017 Specimen: Blood Updated: 02/15/172058 AMMONIA 30 umol/L PROBLEM LIST Principal Problem: Hyperkalemia Active Problems: Rash 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) ESRD (end stage renal disease) on dialysis ([facility]) ASSESSMENT & PLAN Impression patient is 51 [...] MD Service: Nephrology Author Type: Physician Filed: 02/19/172221 Date of Service: 02/18/171729 Status: Signed Bail Bond Agent: Fela Mayberyr MD (Physician) The patient is seen & [...] fluid restriction of 1.2L per 24 hrs Feal Mayberry MD Kemal Belle MD - 02/16/2017 3:24 PM PDTFormatting of this note might be different from the orig inal. Procedures by Kemal Farfan MD at 02/16/17 1524 Author: Kemal Farfan MD Service: Lens Finisher Author Type: Physician Filed: 02/16/171525 Date of Service: 02/16/171523 Status: Signed Bail Bond Agent: Kemal Farfan MD (Physician) Procedure Orders: 1. Central line [[id number]] ordered by Kemal Farfan MD at 02/16/17 1524 Post-procedure Diagnoses: 1. ESRD (end stage renal disease) on dialysis (HCC) [N18.6, Z99.2] [facility] Service: Lens Finisher BEDSIDE PROCEDURE NOTE Dialysis catheter Date/Time: 02/16/2017 3:00 PM Performed by: KEMAL FARFAN Authorized by: KEMAL FARFAN Consent: Written consent obtained. Consent given by: patient Required items: required blood products, implants, devices, and special equipment available Patient identity confirmed: arm band Time out: Immediately prior to procedure a "time out" was called to verify the correct mahamed ent, procedure, equipment, donor support technician and site/side marked as required. Indications: vascular [...] no immediate complications Kemal Farfan MD 02/16/2017 emal Farfan MD - 02/16/2017 3:22 PM PDT Procedures by Kemal Farfan MD at 02/16/17 152 Author: Kemal Farfan MD Service: Lens Finisher Author Type: Physician Filed: 02/16/171523 Date of Service: 02/16/171521 Status: Signed Bail Bond Agent: Kemal Farfan MD (Physician) Procedure Orders: 1. Central line [[id number]] ordered by Kemal Farfan MD at 02/16/17 152 Post-procedure Diagnoses: 1. ESRD (end stage renal disease) on dialysis (HCC) [N18.6, Z99.2] [facility] Service: Lens Finisher BEDSIDE PROCEDURE NOTE Dialysis catheter Date/Time: 02/16/2017 [...] verify the correct mahamed ent, procedure, equipment, donor support technician and site/side marked as required. Indications: vascular [...] Interventional Radiology Author Type: Physician Filed: 02/18/17 5056 Date of Service: 02/18/17 1110 Status: Addendum Bail Bond Agent: Jimenez Garnica MD PhD (Physician) Related Notes: [...] Rash Vitamin D deficiency Secondary renal hyperparathyroidism ([facility]) Hypothyroidism Hypoalbuminemia Diabetes mellitus with ESRD (end-stage renal disease) ([facility]) Obesity (BMI 30-39.9) HTN (hypertension) ESRD (end stage renal disease) on dialysis ([facility]) Anemia of chronic kidney failure Gout PUD [...] any more, no symptoms AV fistula ([facility]) lt arm 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 Chronic obstructive asthma with exacerbation ([facility]) 10/27/2013 Chronic systolic heart failure ([facility]) 09/10/2016 Diabetes mellitus type I ([facility]) Dialysis patient ([facility]) DVT (deep venous thrombosis) ([facility]) x3 GI bleed 04/30/2012 from coumadin Gout [...] FISTULA; Surgeon: Oskar Meyer MD; Location: [facility] MAIN OR; Service: Vascula r; Laterality: Right; AV FISTULA PLACEMENT Left 05/06/2012 Procedure: AV FISTULA; Surgeon: Oskar Meyer MD; Location: [facility] MAIN OR; Service: Vascula r; Laterality: Left; Left arm possible right AV FISTULA REPAIR Left 07/11/2012 Procedure: AV FISTULA - GRAFT REPAIR/REVISION; Surgeon: Oskar Meyer MD; Location: [facility] IN OR; Service: Vascular; Laterality: Left; Superficialization of brachiobasilic fistula and right IJ perm cath insertion CATHETER REMOVAL Right 07/07/2012 Procedure: DIALYSIS CATHETER - REMOVAL; Surgeon: Oskar Meyer MD; Location: [facility] BEDSIDE P ROCEDURE; Service: General; Laterality: Right; perm cath COLONOSCOPY WITH EGD N/A 05/01/2012 Procedure: COLONOSCOPY W/ EGD; Surgeon: John Singleton MD; Location: [facility] ENDOSCOPY; Ser vice: Gastroenterology; Laterality: N/A; DIALYSIS FISTULA CREATION Left 07/11/2012 Procedure: DIALYSIS CATHETER - INSERTION; Surgeon: Oskar Meyer MD; Location: [facility] MAIN OR ; Service: Vascular; Laterality: Left; removed dialysis catheter from left neck and place d new on in left chest, attempted in right neck but unable to place DIALYSIS FISTULA CREATION Left 07/07/2012 Procedure: DIALYSIS CATHETER - INSERTION; Surgeon: Oskar Meyer MD; Location: [facility] BEDSIDE PROCEDURE; Service: General; Laterality: Left; temporary dialysis catheter KNEE ARTHROSCOPY Right 07/07/2012 Procedure: KNEE - ARTHROSCOPY; Surgeon: Favio Raza MD; Location: [facility] MAIN OR; Se rvice: Orthopedics; Laterality: Right; After 1530 SUPERFICIALIZATION OF AV FISTULA Right 03/30/2014 Procedure: AV FISTULA - SUPERFICIALIZATION; Surgeon: Oskar Meyer MD; Location: [facility] MAIN OR; Service: Vascular; Laterality: Right; [...] KIDS. CURRENTLY UNEMPLOYED, BEFOR E WORKED AT [employer] IN [place]. Quit METHAMPHETAMINES PER PATIENT after t he [...] has a good thrill. 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 Will attempt left sided p lacement. PARQ held, questions answered and pt wishes to proceed. Jimenez Rushing, PhD Interventional Radiology and Vascular Medicine Vascular and Interventional Radiology Available 14/01 through our clinic 509 Fela Landin MD - 02/16/2017 12:26 PM PDT Consult* by Fela Mayberry MD at 02/16/17 1226 Author: Fela Mayberry MD Service: Nephrology Author Type: Physician Filed: 02/16/17 9919 Date of Service: 02/16/171225 Status: Addendum Bail Bond Agent: Fela Mayberry MD (Physician) Related Notes: Original Note by Fela Mayberry MD (Physician) filed at 02/16/17 3646 Hospital Problem List: Principal Problem: Hyperkalemia Active Problems: Rash Diabetes mellitus with ESRD (end-stage renal disease) ([facility]) ESRD (end stage renal disease) on dialysis ([facility]) I was asked by the hospital medicine team team to see Mr. Potter in consult today. [facility] is familiar with his [...] X 1 week. He get HD in [facility], his director federal Dr Timmons. He states that he had [...] to patient education and discussions with t he primary/consulting team. Thank you for the opportunity [...] 1058 Date of Service: 02/16/171047 Status: Signed Bail Bond Agent: Dwain Lima MD (Physician) Consult Orders: 1. Inpatient consult to Infectious Diseases [[id number]] ordered by Jose Allan MD at 02/16/17 0923 [facility] Service: Infectious Diseases Initial Consult Note Date [...] mellitus type I (HCC) Dialysis patient ([facility]) DVT (deep venous thrombosis) ([facility]) x3 GI bleed 04/30/2012 from coumadin Gout Hyperkalemia 11/09/2013 Hyperlipidemia Hyperphosphatemia 05/24/2012 Hypertension Hyponatremia 09/08/2016 Knee pain, right 07/06/2012 MSSA (methicillin susceptible Staphylococcus aureus) infection 04/11/2012 Neuromuscular disorder ([facility]) neuropathy 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 Rash and nonspecific skin eruption 04/03/2012 SOB (shortness of breath) 10/27/2013 Thyroid disease Walker as ambulation aid Past Surgical History Procedure Laterality Date AV FISTULA PLACEMENT Right 02/09/2014 Procedure: AV FISTULA; Surgeon: Oskar Meyer MD; Location: [facility] MAIN OR; Service: Vascula r; Laterality: Right; AV FISTULA PLACEMENT Left 05/06/2012 Procedure: AV FISTULA; Surgeon: Oskar Meyer MD; Location: [facility] MAIN OR; Service: Vascula r; Laterality: Left; Left arm possible right AV FISTULA REPAIR Left 07/11/2012 Procedure: AV FISTULA - GRAFT REPAIR/REVISION; Surgeon: Oskar Meyer MD; Location: [facility] IN OR; Service: Vascular; Laterality: Left; Superficialization of brachiobasilic fistula and right IJ perm cath insertion CATHETER REMOVAL Right 07/07/2012 Procedure: DIALYSIS CATHETER - REMOVAL; Surgeon: Oskar Meyer MD; Location: [facility] BEDSIDE P ROCEDURE; Service: General; Laterality: Right; perm cath COLONOSCOPY WITH EGD N/A 05/01/2012 Procedure: COLONOSCOPY W/ EGD; Surgeon: John Singleton MD; Location: [facility] ENDOSCOPY; Ser vice: Gastroenterology; Laterality: N/A; DIALYSIS FISTULA CREATION Left 07/11/2012 Procedure: DIALYSIS CATHETER - INSERTION; Surgeon: Oskar Meyer MD; Location: [facility] MAIN OR ; Service: Vascular; Laterality: Left; removed dialysis catheter from left neck and place d new on in left chest, attempted in right neck but unable to place DIALYSIS FISTULA CREATION Left 07/07/2012 Procedure: DIALYSIS CATHETER - INSERTION; Surgeon: Oskar Meyer MD; Location: [facility] BEDSIDE PROCEDURE; Service: General; Laterality: Left; temporary dialysis catheter KNEE ARTHROSCOPY Right 07/07/2012 Procedure: KNEE - ARTHROSCOPY; Surgeon: Favio Raza MD; Location: [facility] MAIN OR; Se rvice: Orthopedics; Laterality: Right; After 1530 SUPERFICIALIZATION OF AV FISTULA Right 03/30/2014 Procedure: AV FISTULA - SUPERFICIALIZATION; Surgeon: Oskar Meyer MD; Location: [facility] MAIN OR; Service: Vascular; Laterality: Right; [...] KIDS. CURRENTLY UNEMPLOYED, BEFOR E WORKED AT [employer] IN [place]. Quit METHAMPHETAMINES PER PATIENT after t he [...] mg 650 mg Oral Q6H PRN Frank Haji MD 650 mg at 02/16/17 0827 Or [...] Haji MD 10 0 mg at 02/16/17 0805 amLODIPine (NORVASC) tablet 10 mg 10 mg Oral Daily Frank Haji MD 10 mg at 02/16/17 08 aspirin EC tablet 81 mg 81 mg Oral Daily Frank Haji MD 81 mg at 7 0805 bacitracin ophthalmic ointment Right Eye TID Frank Haji MD Stopped at 02/16/17 0010 budesonide-formoterol (SYMBICORT) 160-4.5 MCG/ACT inhaler 2 puff 2 puff Inhalation 2 t imes daily Frank Haji MD 2 puff at 02/16/17 08 carvedilol (COREG) tablet 3.125 mg 3.125 mg Oral BID WC Frank Haji MD 3 .125 mg at 02/16/17 08 cholecalciferol (VITAMIN D-3) tablet 1,000 Units 1,000 Units Oral Daily Frank Barrow MD 1,000 Units at 02/16/17 08 dextrose 10 % infusion Intravenous Continuous PRN Frank Haji MD dextrose 50 % solution 12 mL 12 mL Intravenous PRN Frank Haji MD dextrose 50 % solution 25 mL 25 mL Intravenous PRN Frank Haji MD diphenhydrAMINE (BENADRYL) 12.5 mg/5 mL liquid 25 mg 25 mg Oral Q8H PRN Frank Barrow MD Or diphenhydrAMINE (BENADRYL) capsule 25 [...] 4 mg Intravenous Q6H PRN Case Daigle D polyethylene glycol (GLYCOLAX) packet 17 g 17 [...] Procedure Component Value Units Date/Time Urine culture [[id number]] Collected: 02/16/17 0745 Specimen: Urine from Urine, Clean Catch Updated: 02/16/17 1022 MRSA by PCR [[id number]] (Abnormal) Collected: 02/15/17 2333 Specimen: Nasopharyngeal from Nares(Nose) Updated: 02/16/17 0050 SOURCE NARES(NOSE) MRSA PCR POSITIVE for MRSA by PCR (A) Blood culture, set 2 [[id number]] Collected: 02/15/172023 Specimen: Blood from Blood Line Draw Updated: 02/15/172144 Blood Culture Set 1 [[id number]] Collected: 02/15/172017 Specimen: Blood from Blood, peripheral draw Updated: 02/15/172143 IMAGING No images for review PROBLEM LIST Principal Problem: Hyperkalemia Active Problems: Rash 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) ESRD (end stage renal disease) on dialysis ([facility]) ASSESSMENT AND RECOMMENDATIONS The patient is a 51 y.o.-year-old male with the following problems 1. Chronic skin lesions: Likely non-infectious dermatosis. Do not appear to have superimposed active bacterial infection. Consider biopsy while inpatient for definite diagnosis. 2. MRSA colonization: Contact precautions Will sign off. Discussed with Dr. Allan Thank you for this consultation. Dwain Lima MD 02/16/2017 10:49 AM doisai ren in this encounter ED Notes Conversion Transaction, Provider Unknown - 02/15/2017 8:32 PM PDTFormatting of this note m ight be different from the original. ED Notes by JAZIEL Christy at 02/15/172031 Author: JAZIEL Christy Service: (none) Author Type: Prenatal Genetic Counselor Filed: 02/15/172031 Date of Service: 02/15/172031 Status: Signed Bail Bond Agent: JAZIEL Christy (Prenatal Genetic Counselor) IV insertion attempt done once on the L hand and once on the L wrist. JAZIEL Christy 02/15/172031 rabtr Jay clark MD - 02/15/2017 8:03 PM PDT ED Provider Notes by Jay Gtz MD at 02/15/172002 Author: Jay Gtz MD Service: -Emergency Author Type: Physician Filed: 02/16/1756 Date of Service: 02/15/172002 Status: Addendum Bail Bond Agent: Jay Gtz MD (Physician) Related Notes: Original Note by Jay Gtz MD (Physician) filed at 02/16/1728 Procedure Orders: 1. Critical Care [[id number]] ordered by Jay Gtz MD at 02/16/1726 2. General Procedure documentation [[id number]] ordered by Jay Gtz MD at 02/15/172029 [facility] Department of Emergency Medicine History of Present [...] [facility] [place] and was jc d symptoms did not warrant transfer to [facility] until today. Timin week ago Duration: Constant [...] 07/06/2012 Chronic obstructive asthma with exacerbation ([facility]) 10/27/2013 Chronic systolic heart failure ([facility]) 09/10/2016 Diabetes mellitus type I ([facility]) Dialysis patient ([facility]) DVT (deep venous thrombosis) ([facility]) x3 GI bleed 04/30/2012 from coumadin Gout [...] FISTULA; Surgeon: Oskar Meyer MD; Location: [facility] MAIN OR; Service: Vascula r; Laterality: Right; AV FISTULA PLACEMENT Left 05/06/2012 Procedure: AV FISTULA; Surgeon: Oskar Meyer MD; Location: [facility] MAIN OR; Service: Vascula r; Laterality: Left; Left arm possible right AV FISTULA REPAIR Left 07/11/2012 Procedure: AV FISTULA - GRAFT REPAIR/REVISION; Surgeon: Oskar Meyer MD; Location: [facility]; Service: Vascular; Laterality: Left; Superficialization of brachiobasilic fistula and right IJ perm cath insertion CATHETER REMOVAL Right 07/07/2012 Procedure: DIALYSIS CATHETER - REMOVAL; Surgeon: Oskar Meyer MD; Location: [facility] BEDSIDE P ROCEDURE; Service: General; Laterality: Right; perm cath COLONOSCOPY WITH EGD N/A 05/01/2012 Procedure: COLONOSCOPY W/ EGD; Surgeon: John Singleton MD; Location: [facility] ENDOSCOPY; Ser vice: Gastroenterology; Laterality: N/A; DIALYSIS FISTULA CREATION Left 07/11/2012 Procedure: DIALYSIS CATHETER - INSERTION; Surgeon: Oskar Meyer MD; Location: [facility] MAIN OR ; Service: Vascular; Laterality: Left; removed dialysis catheter from left neck and place d new on in left chest, attempted in right neck but unable to place DIALYSIS FISTULA CREATION Left 07/07/2012 Procedure: DIALYSIS CATHETER - INSERTION; Surgeon: Oskar Meyer MD; Location: [facility] BEDSIDE PROCEDURE; Service: General; Laterality: Left; temporary dialysis catheter KNEE ARTHROSCOPY Right 07/07/2012 Procedure: KNEE - ARTHROSCOPY; Surgeon: Favio Raza MD; Location: [facility] MAIN OR; rvice: Orthopedics; Laterality: Right; After 1530 SUPERFICIALIZATION OF AV FISTULA Right 03/30/2014 Procedure: AV FISTULA - SUPERFICIALIZATION; Surgeon: Oskar Meyer MD; Location: [facility] MAIN OR; Service: Vascular; Laterality: Right; [...] KIDS. CURRENTLY UNEMPLOYED, BEFOR E WORKED AT [employer] IN [place]. Quit METHAMPHETAMINES PER PATIENT after t he [...] injection 100 mEq (100 mEq Intravenous Given 02/15/172248) sodium polystyrene sulfonate (KAYEXALATE) 15 GM/60ML suspension 30 g (not administered) MDM: Reynaldo 51 y.o. male Patient presents here to [...] 7.24, I discussed case with Dr. Stiles director federal, will plan to see him the patient in the [facility], recommends to stick with plan of giving the 2 A of bicarbonate. We placed a call to speak with the patient's line leader Dr. Roland Milner, he does not johnson ve a call service, the voicemail recommended we contact the on-call line leader at the [facility], we have called both [place] in [place], there do not have any contact informati [...] would be for patient to see his line leader for immediate follow-up. I discussed this with the hospitalist Dr. Siddiqi, who placed the order for the antibiotic ointment Records Reviewed Old medical records. Nursing notes. Previous [facility] ED visits for unrelated complaints. (Using the electronic record system of [facility]) Laboratory Evaluation Results Procedure Component Value Ref Range Date/Time pH, venous [[id number]] (Abnormal) Collected: 02/15/172249 Order Status: Completed Specimen: Blood Updated: 02/15/172306 pH 7.208 (L) 7.300 - 7.450 POC venous blood gas [[id number]] (Abnormal) Collected: 02/15/172241 Order Status: Completed Updated: [...] - 85 % Blood culture, set 2 [[id number]] Collected: 02/15/172023 Order Status: Sent Specimen: Blood from Blood Line Draw Updated: 02/15/172144 Blood Culture Set 1 [[id number]] Collected: 02/15/172017 Order Status: Sent Specimen: Blood from Blood, peripheral draw Updated: 02/15/172143 Cardiac Panel [[id number]] (Abnormal) Collected: 02/15/172017 Order Status: Completed Updated: [...] ng/mL CK-MB Index 5.5 Septic Lactic Acid [[id number]] Collected: 02/15/172023 Order Status: Completed Updated: 02/15/172105 LACTIC ACID 0.5 0.4 - 2.0 mmol/L BNP [[id number]] (Abnormal) Collected: 02/15/172017 Order Status: Completed Specimen: Blood Updated: 02/15/172101 BRAIN NATRIURETIC PEPTIDE 253 (H) 0 - 100 pg/mL Ammonia level [[id number]] Collected: 02/15/172017 Order Status: Completed Specimen: Blood [...] Impression: 1. No acute process. Narrative: CAROL POTTER XR CHEST 1 VIEW HISTORY: [...] recognition system. The possibility of "sound alike" founder and ceo errors, and additions or deletions may occur. [...] pain Alternatives discussed: Observation and no treatment [place] protocol: Procedure explained and questions answered to [...] review of old charts Attending Provider Note: I, Jay Gtz MD personally performed the services describe d [...] Author: JAZIEL Christy Service: (none) Author Type: Prenatal Genetic Counselor Filed: 02/15/171915 Date of Service: 02/15/171914 Status: Signed Bail Bond Agent: JAZIEL Christy (Prenatal Genetic Counselor) Pt states that he needs to get dialysis and get his fistula looked at. He states that his f istula is infected and has been since September. Pt also complains of fever and weakness. JAZIEL Christy 02/15/17 191 docume nted in this encounter Miscellaneous Notes Op Note - Jimenez Garnica MD - 02/18/2017 1:53 PM PDT Brief Op Note by Jimenez Garnica MD PhD at 02/18/17 1219 Author: Jimenez Garnica MD PhD Service: Interventional Radiology Author Type: Physician Filed: 02/18/17 1402 Date of Service: 02/18/17 7251 Status: Signed Bail Bond Agent: Jimenez Garnica MD PhD (Physician) Interventional Radiology [...] 02/16/171728 Date of Service: 02/16/171726 Status: Signed Bail Bond Agent: Jose Allan MD (Physician) Initial H&P reviewed, [...] with Dr Timmons and eventually went to [facility] and he was then transferred to [facility] for management. His labs showed stable CBC but BMP revealed K o f 5.9 and a Creatinine of 13. Nephrology services was consulted and Dr. Mayberry planned to [facility] HD via IJ catheter followed by a [...] | | | Fingerstick | performed at [facility];8 | | LAB | | | | [address] [place] | | | | | | [address] | | | | + + + [...] | | | Fingerstick | performed at [facility];[address] | | LAB | | | | [address];[place], [place] | | | | | | [address] | | | | + + + [...] | | | Fingerstick | performed at [facility];[address] | | LAB | | | | Ishaan [place] | | | | | | [address] | | | | + + + [...] | | | | | | [place] [address] | | | | + + + [...] | | | POC | performed at [facility];888 | | LAB | | | | [place] | | | | | | [address] | | | | + + + [...] | | | Fingerstick | performed at [facility];[address] | | LAB | | | | [address] [place] | | | | | | [address] | | | | + + + [...] | | | Fingerstick | performed at [facility];[address] | | LAB | | | | [address];[place], [place] | | | | | | [address] | | | | + + + [...] | | | Fingerstick | performed at [facility];[address] | | LAB | | | | [address];[place] | | | | | | [address] | | | | + + + [...] Right brachiocephalic/subclavian venous | | | angioplasty FRAME [employer]IL[employer]: Jimenez Garnica MD, PhD, VI | | | PROCEDURE: Informed consent was [...] the SVC. An 8 | | | Iranian sheath was placed and a central venogram was performed which | | | demonstrated a brachiocephalicA/SVC confluence focal stenosis. Using | | | multiple obliquities, the catheter and wire were successfully passed | | | beyond the stent into the inferior vena cava. Patient was heparinized | | | An 10 Iranian sheath was placed. A wire and catheter [...] and a small incision was made. A 14.5-Iranian Palindrome 23 | | | cm tip [...] venogram5. | | Right brachiocephalic/subclavian venous angioplasty [employer]: Jimenez Garnica MD, | | PhD, RPVI [...] not pass into the SVC. An 8 Iranian sheath was | | placed and a central venogram was performed which demonstrated a brachiocephalicA/SVC | | confluence focal stenosis. Using multiple obliquities, the catheter and wire were | | successfully passed beyond the stent into the inferior vena cava. Patient was | | heparinized An 10 Iranian sheath was placed. A wire and catheter [...] and a small incision was made. A 14.5-Iranian Palindrome 23 cm tip to cuff | [...] Right brachiocephalic/subclavian venous | | | angioplasty [employer]: Jimenez Garnica MD, PhD, RPVI | | [...] the SVC. An 8 | | | Iranian sheath was placed and a central venogram was performed which | | | demonstrated a brachiocephalicA/SVC confluence focal stenosis. Using | | | multiple obliquities, the catheter and wire were successfully passed | | | beyond the stent into the inferior vena cava. Patient was heparinized | | | An 10 Iranian sheath was placed. A wire and catheter [...] and a small incision was made. A 14.5-Iranian Palindrome 23 | | | cm tip [...] venogram5. | | Right brachiocephalic/subclavian venous angioplasty [employer]: Jimenez Garnica MD, | | PhD, RPVI [...] not pass into the SVC. An 8 Iranian sheath was | | placed and a central venogram was performed which demonstrated a brachiocephalicA/SVC | | confluence focal stenosis. Using multiple obliquities, the catheter and wire were | | successfully passed beyond the stent into the inferior vena cava. Patient was | | heparinized An 10 Iranian sheath was placed. A wire and catheter [...] and a small incision was made. A 14.5-Iranian Palindrome 23 cm tip to cuff | [...] + + | Khalif Palm Cee - 02/04/2019 10:13 PM PDT This Point [...] | | | Fingerstick | performed at [facility];[address] | | LAB | | | | [facility] [facility];[place], [place] | | | | | | [...] [place], | | | | | | [place] [address] | | | | + + [...] | | | Fingerstick | performed at [facility];[address] | | LAB | | | | [place] | | | | | | [address] | | | | + + + [...] | | | Fingerstick | performed at [facility];[address] | | LAB | | | | [address];[place], [place] | | | | | | [address] | | | | + + + [...] | | | Fingerstick | performed at [facility];[address] | | LAB | | | | Ishaan Jeffrey;[place] | | | | | | [address] [...] | | | Fingerstick | performed at [facility];[address] | | LAB | | | | [address];[place], [place] | | | | | | [address] | | | | + + + [...] | | | | | [place] [address] | | | | + + + [...] | | | | | | at [facility], [address] | | | | | | [facility], | | | | | | [place] [address] | | | | | |Testing performed at [facility], [address] [facility], [place] [address] | | | | | | | [...] EXTERNAL | | | | performed at [facility], [address] | | LAB | | | | Janna [place], | | | | | | [place] [address] | | | | + + + [...] + + | Hemoglobin | 5.5Comment: The Tanzanian | 4.0 - 6.0 % | EXTERNAL [...] | | | | | performed at [facility], [address] | | | | | | [facility], | | | | | | [place] [address] | | | | + + + [...] | | | | | | at [facility], [address] | | | | | | Janna [place], | | | | | | [place] [address] | | | | + + + [...] | | | Fingerstick | performed at [facility];[address] | | LAB | | | | [place] | | | | | | [address] | | | | + + + [...] | | | Fingerstick | performed at [facility];[address] | | LAB | | | | Ishaan Jeffrey;[place] | | | | | | [address] | | | | + + + [...] | | | | | | at [facility];[address] [place] [address] | | | | | | [facility];[place] [address] | | | | + + + [...] [place] | | | | | | [address] | | | | + + + [...] | | | | | | at [facility], [address] | | | | | | Janna Wojciech, | | | | | | [place] [address] | | | | + + + [...] | | | Fingerstick | performed at [facility];[address] | | LAB | | | | [place] [place] | | | | | | [address] | | | | + + + [...] LAB | | | | TCL, [address] | | | | | | [place] | | | | | | [address] | | | | + + + [...] - 1.030 | EXTERNAL | | | [place], | | | LAB | | | [...] | | | Urine | performed at [facility], [address] | | LAB | | | | Janna [place], | | | | | | [place] [address] | | | | + + + [...] | | | Fingerstick | performed at [facility];[address] | | LAB | | | | [address];[place], [place] | | | | | | [address] | | | | + + + [...] + + | Historically converted procedure from [facility] environment | EXTERNAL LAB | [...] LAB | | | | performed at [facility], [address] | | | | | | [place]anna [place], | | | | | | [place] [address] | | | | | | | [...] EXTERNAL | | | | performed at [facility], [address] | | LAB | | | | [place]anna [place], | | | | | | [place] [address] | | | | + + + [...] | | | | | [place] [address] | | | | + + + [...] | | | Direct | performed at [facility], [address] | | LAB | | | | Janna Smith, | | | | | | [place] [address] | | | | + + + [...] LAB | | | | @ [phone] ANGOON | | | | | |LUIS CARLOS Rose 6RP @ [phone] ANGOON | | | | | | | [...] | | | | | | at [facility], [address] | | | | | | [facility], | | | | | | [place] [address] | | | | + + + [...] EXTERNAL | | | | performed at [facility];888 | mmol/L | LAB | | | | [address];[place], [place] | | | | | | [address] | | | | + + + [...] LAB | | | | @ [phone] ANGOON | | | | | |MARC Burgess PCC @ [phone] ANGOON | | | | | | | [...] | | | | | | at [facility], [address] | | | | | | [facility], | | | | | | [place] [address] | | | | + + + [...] | | | PCRAbnormal Testing performed at [facility];[address] [place] [address];[place] [address] | | + + + + +---------+ [...] | | | Fingerstick | performed at [facility];[address] | | LAB | | | | [address];[place], [place] | | | | | | [address] | | | | + + + [...] | | LAB | | | | [facility];[address];[place] [address] | | | | + + + [...] Khalif Conversion - 02/04/2019 10:13 PM PDT CAROL [...] | | | | | content editor ANA M NAVARRO | | | | | | (125) on 02/16/2017 | | | | | | 5:51:20 AM | | | | + + + + + + + + | Specimen | + + | | + + + + + | Narrative | Performed At | + + + | [facility]ically [facility] Epic environment | EXTERNAL LAB [...] EXTERNAL | | | | performed at [facility];888 | mmol/L | LAB | | | | [place] | | | | | | [address] | | | | + + + [...] EXTERNAL | | | | performed at [facility];[address] | | LAB | | | | [address];[place] | | | | | | [address] | | | | + + + [...] EXTERNAL | | | | performed at [facility];[address] | | LAB | | | | Ishaan Jeffrey;[place] | | | | | | [address] | | | | + + + [...]
--- OUTSIDE RECORDS SUMMARY | ~2019-12-30 | XMS | Encounter Summary ---
Demographics + + + | Address | [address] | | | [place] [address] | + + + | Home Phone | | + + + | Preferred Language | Unknown | + + + | Marital Status | Unknown | + + + | Gnosticist Affiliation [...] Team Providers + +------+ + | Care Bilingual Executive Assistant Name | Role | Phone | + +------+ + PCP | Unavailable | + +------+ + Encounter Details +--------+ + + + + | Date | Type | Department | Care Team | Description | +--------+ + + + + | 10/08/ | Hospital | [facility] | Katie, | Pain; Hyperkalemia; | | 2017 - | Encounter | [facility] | MD Frank [address] | ESRD (end stage | | | | CARE FLOOR [address] | [address] | renal disease) ([facility]LY [facility]) | | 10/09/ | | [address] | [place] [address] | | | 2016 | | [place], [place] | [phone] | | | | | [address] | | | | | | [phone] | | | +--------+ + + + [...] Summaries by Gale Cuellar MD at 10/09/16 1504 Author: Gale Cuellar MD Service: Hospitalist Author Type: Physician Filed: 10/09/16 1550 Date of Service: 10/09/161500 Status: Signed Tong Hooker: Gale Cuellar MD (Physician) [facility] Service: Hospitalist Physician Discharge Summary Patient [...] chest pain Patient was recently discharged from [facility] on 09/17/16 for full note please see [...] nocturnal dyspnea or orthopnea. He went to [facility] where he was found hyperkalemic with negative EKG signs of potassium toxicity. The patient received calcium gluconate, bicarbonate, albuterol and Kyde x leg. Patient refers that with these measures his chest discomfort disappeared, and since then he has remained chest pain-free. Patient was subsequently transferred to [facility] for further management and due to lack of ne phrology coverage. ED provider already consulted nephrology, Dr. Soria. Patient will be admitted under the hospital service for further management." 10/09/16 For Discharge: Patient admitted for: Chest Pain (resolved) with elevated K+-7.2 (at [facility]). K-6.2 here at [facility] 08/2016 echocardiogram-overall left ventricular systolic function was [...] - SUPERFICIALIZATION; Surgeon: Oskar Meyer MD; Location: [facility] MAIN OR; Service: Vascular; Laterality: Right; Av fistula placement Right 02/09/2014 Procedure: AV FISTULA; Surgeon: Oskar Meyer MD; Location: [facility] MAIN OR; Service: Vascul ar; Laterality: Right; Av fistula repair Left 07/11/2012 Procedure: AV FISTULA - GRAFT REPAIR/REVISION; Surgeon: Oskar Meyer MD; Location: [facility] M AIN OR; Service: Vascular; Laterality: Left; Superficialization of brachiobasilic fistula and right IJ perm cath insertion Dialysis fistula creation Left 07/11/2012 Procedure: DIALYSIS CATHETER - INSERTION; Surgeon: Oskar Meyer MD; Location: [facility] MAIN O R; Service: Vascular; Laterality: Left; removed dialysis catheter from left neck and plac ed new on in left chest, attempted in right neck but unable to place Catheter removal Right 07/07/2012 Procedure: DIALYSIS CATHETER - REMOVAL; Surgeon: Oskar Meyer MD; Location: [facility] BEDSIDE PROCEDURE; Service: General; Laterality: Right; perm cath Dialysis fistula creation Left 07/07/2012 Procedure: DIALYSIS CATHETER - INSERTION; Surgeon: Oskar Meyer MD; Location: [facility] BEDSID E PROCEDURE; Service: General; Laterality: Left; temporary dialysis catheter Knee arthroscopy Right 07/07/2012 Procedure: KNEE - ARTHROSCOPY; Surgeon: Favio Raza MD; Location: [facility] MAIN OR; S ervice: Orthopedics; Laterality: Right; After 1530 Av fistula placement Left 05/06/2012 Procedure: AV FISTULA; Surgeon: Oskar Meyer MD; Location: [facility] OR; Service: Vascul ar; Laterality: Left; Left arm possible right Colonoscopy with egd N/A 05/01/2012 Procedure: COLONOSCOPY W/ EGD; Surgeon: John Singleton MD; Location: [facility] ENDOSCOPY; Se rvice: Gastroenterology; Laterality: [...] categorization. 1. [place] Heart Association and [place] [employer] of [employer]iology Scientific Statement. Circulatio n (2008); 118: p 3027-4069 Echo Cardiac Adult Complete 10/09/2016 1. Overall [...] [place] [address], [address] [facility] [place] [place] [address] Medication List START taking these [...] Medications These medications were sent to [facility] [place], [place] [address] [facility] [address] [facility] [address] - polyethylene glycol packet Gale Cuellar MD [...] | | 14 | | | ol (ADVBEKAH NIELSEN | times daily. | | | | [...] from the original. Nurse Progress Note by Lnia Roberts RN at 10/09/16 1445 Author: Lina Roberts RN Service: (none) Author Type: Registered Nurse Filed: 10/09/16 1446 Date of Service: 10/09/16 1445 Status: Signed Tong Hooker: Lina Roberts RN (Registered Nurse) Discussed all [...] Service: Nephrology Author Type: Physician Filed: 10/09/16 1630 Date of Service: 10/09/16 1114 Status: Signed Tong Hooker: Cosmo Soria MD (Physician) [id number] Carol Potter is a 51 y.o. man whose PCP is Dr. ANDRY DENG. He is known to have ESRD as per PMH> He was recently discharged from [facility] (admitted 09/07/16-09/15/16) where he had a complicated [...] of breath. He presented to ED at [facility] where he was found to have severe hyperkalemia (no EKG changes). He was treated medically and was transferred to [facility] for urgent dialysis. The pain resolved after treatment. At [facility] he was hypertensive without tachycardia/fever/hypoxia. Lab work [...] He is dialyzed Saturday an saturday at [place] [facility] using right UE AVF (Dr. [...] outpatient HD MWF using right UE AVF. Optometrist President/Practice Owner evaluation for low K diet on follow [...] was completed later after rounds. Dictation software, Powerphotonic, was used which may contain error for [...] 10/09/167 Date of Service: 10/09/16445 Status: Signed Tong Hooker: Hunter Cuello RN (Registered Nurse) Pt has been A/O x4, VSS, C/O pain x1, tylenol was given x1. Will continue to monitor. Afua Cuello RN. onver quique Transaction, Provider Unknown - 10/08/2016 4:59 PM PDT Nurse Progress Note by Augustus Rivers RN at 10/08/16 9412 Author: Augustus Rivers RN Service: (none) Author Type: Registered Nurse Filed: 10/08/16 1701 Date of Service: 10/08/16 1659 Status: Signed Tong Hooker: Augustus Rivers RN (Registered Nurse) Pt A&O, [...] (none) Author Type: Registered Dietitian Filed: 10/08/16 161 Date of Service: 10/08/16 161 Status: Signed Tong Hooker: Tracey Maldonado RD (Registered Dietitian) 10/08/16 1600 [...] date 10/15/[address] onver quique [place], Provider Unknown - 10/08/2016 12:27 PM PDT Case Management by Heber Escobar RN at 10/08/16 9619 Author: Heber Escobar RN Service: (none) Author Type: Registered Nurse Filed: 10/08/16 3459 Date of Service: 10/08/161226 Status: Signed Tong Hooker: Heber Escobar RN (Registered Nurse) 10/08/16 1221 Discharge Planning Evaluation Admitting Diagnosis Hyperkalemia Readmission [...] male who is independent and lives in [place]. He lives with his and 2 sons. Carol doesn't use any DME and den ies having any concerns for discharge. Patient's PCP is:Dr. Deng Patient's insurance:Medicare/Medicare/[place] Coverage concerns:none Medication coverage/concerns: yes/no Community resources utilized / needed: [facility] M-W-F Assistance in transportation: family Identification [...] 10/08/16619 Date of Service: 10/08/16618 Status: Signed Tong Hooker: Yasmin Jordan RPH (Pharmacist) Lovenox dc'd by Dr. Yang JORDAN 10/08/2016 6:19 AM onver quique Transaction, Provider Unknown - 10/08/2016 6:18 AM PDT Progress Notes by Yasmin Jordan RPH at 10/08/16617 Author: Yasmin Jordan RPH Service: (none) Author Type: Pharmacist Filed: 10/08/16617 Date of Service: 10/08/16617 Status: Signed Tong Hooker: Yasmin Jordan RPH (Pharmacist) Clinical Pharmacy Note: [...] in renal function and adjust accordingly. Yasmin MillerPh 10/08/2016 6:16 AM docume nted in this encounter H&P Notes Frank Wilson MD - 10/08/2016 4:58 AM PDTFormatting of this note might be diffe rent from the original. H&P by Frank Wilson MD at 10/08/16 0458 Author: Frank Wilson MD Service: Hospitalist Author Type: Physician Filed: 10/08/16 0539 Date of Service: 10/08/16 0458 Status: Signed Tong Hooker: Frank Wilson MD (Physician) [facility] Service: Hospitalist Admission History & [...] chest pain Patient was recently discharged from [facility] on 09/17/16 for full note please see discharge s ummary from hospitals. In summary the patient was [...] His fistula was reaccessed with success on . The femoral catheter was removed and the [...] nocturnal dyspnea or orthopnea. He went to [facility] where he was found hyperkalemic with negative EKG signs of potassium toxicity. The patient received calcium gluconate, bicarbonate, albuterol and Kyde x leg. Patient refers that with these measures his chest discomfort disappeared, and since then he has remained chest pain-free. Patient was subsequently transferred to [facility] for further management and due to lack [...] - SUPERFICIALIZATION; Surgeon: Oskar Meyer MD; Location: [facility] MAIN OR; Service: Vascular; Laterality: Right; Av fistula placement Right 02/09/2014 Procedure: AV FISTULA; Surgeon: Oskar Meyer MD; Location: [facility] MA[facility] OR; Service: Vascul ar; Laterality: Right; Av fistula repair Left 07/11/2012 Procedure: AV FISTULA - GRAFT REPAIR/REVISION; Surgeon: Oskar Meyer MD; Location: [facility] OR; Service: Vascular; Laterality: Left; Superficialization of brachiobasilic fistula and right IJ perm cath insertion Dialysis fistula creation Left 07/11/2012 Procedure: DIALYSIS CATHETER - INSERTION; Surgeon: Oskar Meyer MD; Location: [facility] MAIN O R; Service: Vascular; Laterality: Left; removed dialysis catheter from left neck and plac ed new on in left chest, attempted in right neck but unable to place Catheter removal Right 07/07/2012 Procedure: DIALYSIS CATHETER - REMOVAL; Surgeon: Oskar Meyer MD; Location: [facility] BEDSIDE PROCEDURE; Service: General; Laterality: Right; perm cath Dialysis fistula creation Left 07/07/2012 Procedure: DIALYSIS CATHETER - INSERTION; Surgeon: Oskar Meyer MD; Location: [facility] BEDSID E PROCEDURE; Service: General; Laterality: Left; temporary dialysis catheter Knee arthroscopy Right 07/07/2012 Procedure: KNEE - ARTHROSCOPY; Surgeon: Favio Raza MD; Location: [facility] MAIN OR; S ervice: Orthopedics; Laterality: Right; After 1530 Av fistula placement Left 05/06/2012 Procedure: AV FISTULA; Surgeon: Oskar Meyer MD; Location: [facility] MAIN OR; Service: Vascul ar; Laterality: Left; Left arm possible right Colonoscopy with egd N/A 05/01/2012 Procedure: COLONOSCOPY W/ EGD; Surgeon: John Singleton MD; Location: [facility] ENDOSCOPY; Se rvice: Gastroenterology; Laterality: [...] KIDS. CURRENTLY UNEMPLOYED, BEFOR E WORKED AT [employer] IN [employer]. Quit METHAMPHETAMINES PER PATIENT after t he [...] Abuse Screen, UR (Hospital And ED Only) [[id number]] (Abnormal) Collected: 040 Specimen Information: Urine from Urine, Clean Catch Updated: 10/08/16 045 AMPHETAMINE/METHAMPHETAMINE NEGATIVE BARBITUATES NEGATIVE BENZODIAZEPINE NEGATIVE COCAINE NEGATIVE METHADONE NEGATIVE OPIATES POSITIVE (A) PCP NEGATIVE THC NEGATIVE Potassium [[id number]] (Abnormal) Collected: 10/08/16 023 Specimen Information: Blood Updated: 10/08/16 033 POTASSIUM 6.2 (H) mmol/L Protime-INR [[id number]] Collected: 10/08/16238 INR 1.0 Updated: 10/08/16 030 aPTT [[id number]] Collected: 10/08/16238 APTT 29 seconds Updated: 10/08/16 030 Brain natriuretic peptide [[id number]] (Abnormal) Collected: 10/08/16 023 BRAIN NATRIURETIC PEPTIDE 359 (H) pg/mL Updated: 10/08/16 030 Cardiac Panel [[id number]] (Abnormal) Collected: 10/08/16 0216 WBC K/uL Updated: 10/08/16 0248 Result: SPECIMEN CLOTTED, SAMPLE TO BE REDRAWN [...] (H) ng/mL CK-MB Index 2.1 Troponin I [[id number]] Collected: 10/08/16215 Specimen Information: Blood Updated: 10/08/16247 TROPONIN I <0.020 ng/mL CBC W/Auto Diff (Reflex to Manual) [[id number]] (Abnormal) Collected: 10/08/16 0239 WBC 9.28 K/uL Updated: 10/08/16247 RBC 3.02 (L) M/uL HGB 8.8 (L) [...] (end stage renal disease) on dialysis (HCC) Chest pain, unspecified ASSESSMENT & PLAN Impression patient is 51 y.o. male with significant past medical history of hypertension, hyperlipidem ia, end-stage renal disease on hemodialysis, diabetes mellitus, hypothyroidism, asthma, hist ory of MSSA bacteremia who presents with hyperkalemia, chest pain. Transfer from [facility]. patient received prior to transfer to [facility] projection with 30 g, calcium gluco nicanor, insulin plus glucose, albuterol 08/2016 echocardiogram-overall left ventricular systolic function is normal with EF 55-60%. No pericardial effusion Troponin I- < 0.020 K-7.2 (at [facility]). K-6.2 here at [facility] EKG-normal sinus rhythm. no acute ST changes and no P waves. Normal QRS duration. Mild p rolonged QT corrected at 484 Chest x-ray-no obvious consolidation Assessment -Chest pain. With atypical characteristics. Will rule out cardiac etiologies including ac [place] coronary syndrome. Due to recent admission due [...] Date of Service: 10/09/16 1152 Status: Signed Tong Hooker: DARRELL Rose (Advanced Registered Nurse Practitioner) Pre-procedure Diagnoses: 1. Other chest pain [R07.89] Post-procedure Diagnoses: 1. Other chest pain [R07.89] Procedures: 1. NM MYOCARDIAL PERFUSION SPECT - STRESS AND REST [[id number] (Custom)] [facility] Service: Diagnostic Imaging/Nuclear Medicine Preliminary Cardiac [...] Consult* by Cosmo Soria MD at 10/08/16 1157 Author: Cosmo Soria MD Service: Nephrology Author Type: Physician Filed: 10/08/16 1214 Date of Service: 10/08/16 1157 Status: Signed Tong Hooker: Cosmo Soria MD (Physician) [id number]/8103-1 History Obtained From: patient, chart review Carol Potter is a 51 y.o. man whose PCP is Dr. ANDRY DENG. He is known to have ESRD as per PMH> He was recently discharged from [facility] (admitted 09/07/16-09/15/16)where he had a complicated st [...] of breath. He presented to ED at [facility] where he was found to have severe hyperkalemia (no EKG changes). He was treated medically and was transferred to [facility] for urgent dialysis. The pain resolved after treatment. At [facility] he was hypertensive without tachycardia/fever/hypoxia. Lab work [...] is dialyzed Saturday an d Saturday at [place] [facility] using right UE AVF (Dr. [...] may be discharged to resume outpatient HD. Optometrist President/Practice Owner evaluation for low K diet. I discussed [...] was completed later after rounds. Dictation software, Powerphotonic, was used which may contain error for [...] 10/08/16206 Date of Service: 10/08/16206 Status: Signed Tong Hooker: Lavinia Toro RN (Registered Nurse) Wireline Operator at bedside to draw blood. Lavinia Toro RN 10/08/16206 ime, Peterson Fuller MD - 10/08/2016 1:43 AM PDT ED Provider Notes by Peterson Melvin MD at 10/08/16142 Author: Peterson Melvin MD Service: Emergency Department Author Type: Physician Filed: 10/08/16 0705 Date of Service: 10/08/16142 Status: Signed Tong Hooker: Peterson Melvin MD (Physician) [facility] Department of Emergency Medicine 1:43 AM 10/07/2016 History of Present Illness Patient Identification Carol Potter is a 51 y.o. male. Patient information was obtained from EMS personnel and nursing staff. History/Exam limitations: mental status. Patient presented to the Emergency Department by: [place] [facility] Chief Complaint Chief Complaint Patient presents [...] is a dialysis patient. Last dialysis was , when he presented there he was found [...] - SUPERFICIALIZATION; Surgeon: Oskar Meyer MD; Location: [facility] MAIN OR; Service: Vascular; Laterality: Right; Av fistula placement Right 02/09/2014 Procedure: AV FISTULA; Surgeon: Oskar Meyer MD; Location: [facility] MAIN OR; Service: Vascul ar; Laterality: Right; Av fistula repair Left 07/11/2012 Procedure: AV FISTULA - GRAFT REPAIR/REVISION; Surgeon: Oskar Meyer MD; Location: [facility] OR; Service: Vascular; Laterality: Left; Superficialization of brachiobasilic fistula and right IJ perm cath insertion Dialysis fistula creation Left 07/11/2012 Procedure: DIALYSIS CATHETER - INSERTION; Surgeon: Oskar Meyer MD; Location: [facility] MAIN O R; Service: Vascular; Laterality: Left; removed dialysis catheter from left neck and plac ed new on in left chest, attempted in right neck but unable to place Catheter removal Right 07/07/2012 Procedure: DIALYSIS CATHETER - REMOVAL; Surgeon: Oskar Meyer MD; Location: [facility] BEDSIDE PROCEDURE; Service: General; Laterality: Right; perm cath Dialysis fistula creation Left 07/07/2012 Procedure: DIALYSIS CATHETER - INSERTION; Surgeon: Oskar Meyer MD; Location: [facility] BEDSID E PROCEDURE; Service: General; Laterality: Left; temporary dialysis catheter Knee arthroscopy Right 07/07/2012 Procedure: KNEE - ARTHROSCOPY; Surgeon: Favio Raza MD; Location: [facility] MAIN OR; S ervice: Orthopedics; Laterality: Right; After 1530 Av fistula placement Left 05/06/2012 Procedure: AV FISTULA; Surgeon: Oskar Meyer MD; Location: [facility] MAIN OR; Service: Vascul ar; Laterality: Left; Left arm possible right Colonoscopy with egd N/A 05/01/2012 Procedure: COLONOSCOPY W/ EGD; Surgeon: John Singleton MD; Location: [facility] ENDOSCOPY; Se rvice: Gastroenterology; Laterality: [...] 2 ( two) times daily. 04/30/16 05/30/16 Khnah Rangel MD Cholecalciferol 2000 UNITS TABS Take [...] KIDS. CURRENTLY UNEMPLOYED, BEFOR E WORKED AT [employer] IN [employer]. Quit METHAMPHETAMINES PER PATIENT after t he [...] Soria, nephrology, who recommends admission to the [facility] and patient will be dialyzed in the morning. Will admit pt at this time and place a call o ks to the hospitalist. Will give naloxone and [...] Abuse Screen, UR (Hospital And ED Only) [[id number]] (Abnormal) Collected: 405 Order Status: Completed Specimen Information: Urine from Urine, Clean Catch Updated: 10/08/16450 AMPHETAMINE/METHAMPHETAMINE NEGATIVE NEGATIVE BARBITUATES NEGATIVE NEGATIVE BENZODIAZEPINE NEGATIVE NEGATIVE COCAINE NEGATIVE NEGATIVE METHADONE NEGATIVE NEGATIVE OPIATES POSITIVE (A) NEGATIVE PCP NEGATIVE NEGATIVE THC NEGATIVE NEGATIVE POC Arterial Blood Gas [[id number]] Collected: 10/08/16407 Order Status: Completed Updated: 10/08/16414 POC FIO2 21 % pH, Art 7.446 7.350 - 7.450 POC PCO2 36 35 - 45 mmHg POC p02 95 80 - 105 mmHg POC HCO3 25 22 - 26 mmol/L POC TCO2 26 23 - 27 mEq/L POC BASE EXCESS 1 0 - 3 mEq/L POC S02 98 95 - 98 % Potassium [[id number]] (Abnormal) Collected: 10/08/16238 Order Status: Completed Specimen Information: Blood Updated: 10/08/16331 POTASSIUM 6.2 (H) 3.5 - 4.9 mmol/L Protime-INR [[id number]] Collected: 10/08/16238 Order Status: Completed Updated: 10/08/16305 INR 1.0 aPTT [[id number]] Collected: 10/08/16238 Order Status: Completed Updated: 10/08/16305 APTT 29 23 - 32 seconds Brain natriuretic peptide [[id number]] (Abnormal) Collected: 10/08/16 0239 Order Status: Completed Updated: 10/08/16 0306 BRAIN NATRIURETIC PEPTIDE 359 (H) 0 - 100 pg/mL Cardiac Panel [[id number]] (Abnormal) Collected: 10/08/16 0216 Order Status: Completed Updated: 10/08/16 0248 WBC 3.80 - 11.00 K/uL Result: SPECIMEN [...] 3.6 ng/mL CK-MB Index 2.1 Troponin I [[id number]] Collected: 10/08/16215 Order Status: Completed Specimen Information: Blood Updated: 10/08/16247 TROPONIN I <0.020 0.00 - 0.10 ng/mL CBC W/Auto Diff (Reflex to Manual) [[id number]] (Abnormal) Collected: 10/08/16238 Order Status: Completed Updated: [...] diagnoses Hyperkalemia ESRD (end stage renal disease) ([facility]) Disposition: ED Disposition Admit/Observation Bed request special [...] 10/08/16134 Date of Service: 10/08/16134 Status: Signed Tong Hooker: Trish Bansal RN (Registered Nurse) Bed: 06 Expected date: Expected time: Means of arrival: Comments: [facility] onver quique Transaction, Provider Unknown - 10/08/2016 12:34 AM PDT ED Notes by Trish Bansal RN at 10/08/1633 Author: Trish Bansal RN Service: (none) Author Type: Registered Nurse Filed: 10/08/16 0046 Date of Service: 10/08/1633 Status: Signed Tong Hooker: Trish Bansal RN (Registered Nurse) [facility] calling with report on this nurse. C/c of CP today, seen on the in [facility]'s for same c/c. Per report stated "my [...] 88, O2Sat 100% RA. Trish Bansal RN 10/08/16 0046 docume nted in this encounter Miscellaneous Notes Plan of Care - Amrik Noyola MD - 10/08/2016 10:57 AM PDT Plan of Care by Amrik Noyola MD at 10/08/16 1058 Author: Amrik Noyola MD Service: Hospitalist Author Type: Physician Filed: 10/08/16 1050 Date of Service: 10/08/16 105 Status: Signed Tong Hooker: Amrik Noyola MD (Physician) Patient seen He [...] Advised low potassium diet - wIll have certified hyperbaric technician review this with him documented in this [...] | | Fingerstick | performed at [facility];[address] | | LAB | | | | [address];[place], [place] | | | | | | [address] | | | | + + + [...] | | Fingerstick | performed at [facility];[address] | | LAB | | | | [address];[place] | | | | | | [address] | | | | + + + [...] affecting final | | | categorization. 1. [place] [employer] and [place] | | | College of Cardiology Scientific Statement. Circulation (2008); 118: p | | | 0704-3779 | | | 12:55 PM | | [...] potentially affecting final categorization. | | 1. [place] [employer] and [place] [employer] Scientific Statement. | | Circulation (2008); 118: p 0230-7580 Electronically signed by Wilton Lentz MD on [...] | |final categorization. | | | |1. [place] [employer] and [place] [employer] Scientific Statement. Cir culation (2007); 118: p 6825-0800 | | | | | + + [...] | | Fingerstick | performed at [facility];[address] | | LAB | | | | [address];[place] | | | | | | [address] | | | | + + + [...] | | | Basophils | performed at [facility], [address] | K/uL | LAB | | | | [address], | | | | | | [place] [address] | | | | + + + [...] | | | | | [place] [address] | | | | + + + [...] EXTERNAL | | | | performed at [facility], [address] | | LAB | | | | [address], | | | | | | [place] [address] | | | | + + [...] + + | Hemoglobin | 5.3Comment: The [place] | 4.0 - 6.0 % | EXTERNAL [...] | | | | | performed at [facility], [address] | | | | | | [address] [facility], | | | | | | [place] [address] | | | | + + + [...] | | | Direct | performed at [facility], [address] | | LAB | | | | [address], | | | | | | [place] [address] | | | | + + + [...] | | | Calculated | performed at [facility], [address] | | LAB | | | | [address], | | | | | | [place] [address] | | | | + + + [...] | | | | | | at [facility], [address] | | | | | | [address], | | | | | | [place] [address] | | | | + + + [...] | | Fingerstick | performed at [facility];[address] | | LAB | | | | [address];[place], [place] | | | | | | [address] | | | | + + + [...] | | | | | [place] [address] | | | | + + + [...] | | Fingerstick | performed at [facility];[address] | | LAB | | | | [address];[place], [place] | | | | | | [address] | | | | + + + [...] | | | | | | at [facility], [address] | | | | | | Janna Jeffrey, | | | | | | [place] [address] | | | | + + + [...] Excursion: 1.65 | | | cm E-F Vernon: 0.08 m/s TAPSE: 1.81 cm IVC diameter: [...] 0.49 m/s TV | | | Dec Vernon: 3.55 m/s2 TV Dec Time: 184.15 ms TV E Lenard: 0.64 | | | m/s TV E/A Ratio: 1.30 Company Manager: Authenticated by: | | | Masoud Rodriguez MD, FACC, FACP, FASNC Report Date/Time: -- | | | [id number] | | + + + + + | Procedure Note | + + | Khalif Palm Conversion - 02/04/2019 10:13 PM PDT Patient Name: Mohinder POTTER of | | : 1965 Performing Physician: Masoud Rodriguez MD, [facility], | | FACP, | | FASNC INDICATIONS--------- [...] mlLAESV Index (A-L): 33.42 ml/m2LAAs A2C: 18.93 [id number] A-L | | A2C: 63.74 mlLALs A2C: 4.77 cmLAAs A4C: 18.86 [id number] A-L A4C: 59.30 mlLALs | | A4C: 5.09 cmAo Diam: 3.22 cmAV Cusp: 2.15 cmLA Diam: 4.51 cmLA/Ao: 1.39%FS: | | 25.51 %EDV(Teich): 103.27 mlEF(Teich): 50.26 %ESV(Teich): 51.36 mlIVSd: 1.33 | | cmIVSs: 1.36 cmLVIDd: 4.71 cmLVIDs: 3.51 cmLVPWd: 1.07 cmLVPWs: 1.98 | | cmSV(Teich): 51.91 mlD-E Excursion: 1.65 cmE-F Vernon: 0.08 m/sTAPSE: 1.81 cmIVC | | diameter: 2.60 cmIVC collapse: 1.04 cmIVC % collapse: 57.39 %HR: 81.40 BPMAV | | maxP.84 mmHgAV meanP.14 mmHgAV Vmax: 1.48 m/[place] Vmean: 1.09 m/[place] VTI: | | 31.92 cmAVA Vmax: 2.17 cm2AVA (VTI): 2.19 [id number] Vmax: 0.00 cm2/m2AVAI (VTI): | | 0.00 cm2/m2LVCI Dopp: 2.93 l/nxwk2AZHD Dopp: 5.57 l/minHR: 79.54 BPMLVOT maxPG: | [...] VTI: 24.75 cmMVA (VTI): | | 2.82 [id number] e': 0.08 m/sSeptal E/e': 13.19Lateral e': 0.10 [...] 2.37 m/sTV A Lenard: 0.49 m/sTV Dec Vernon: 3.55 m/s2TV | | Dec Time: 184.15 msTV E Lenard: 0.64 m/sTV E/A Ratio: 1.30 Company Manager: | | ASAuthenticated by: Masoud Rodriguez MD, FACC, FACP, FASNCReport Date/Time: -- | | [id number] IMPRESSION: 1. Overall left ventricular systolic function [...] | |D-E Excursion: 1.65 cm | |E-F Vernon: 0.08 m/s | |TAPSE: 1.81 cm | [...] A Lenard: 0.49 m/s | |TV Dec Vernon: 3.55 m/s2 | |TV Dec Time: 184.15 ms | |TV E Lenard: 0.64 m/s | |TV E/A Ratio: 1.30 | | | |Company Manager: | |Authenticated by: Masoud Rodriguez MD, [facility], FACP, [facility] | |Report Date/Time: -- [id number]:28 | | | |IMPRESSION: | |1. Overall [...] | | Fingerstick | performed at [facility] | | LAB | | | | [address] [facility];[place], [place] | | | | | | [address] | | | | + + + [...] | | | | | | ACUTE [place] Testing | | | | | | performed at [facility];[address] | | | | | | [address];[place], [place] | | | | | | [address] | | | | + + + [...] | | | | performed at [facility];[address] | | LAB | | | | [address];[place], [place] | | | | | | [address] | | | | + + + [...] 08-SEP-2016 | | | | | | 00:03,MO interval has | | | | | [...] | | | | | | at [facility], [address] | | | | | | Janna Jeffrey, | | | | | | [place] [address] | | | | + + + [...] | | | | | | ACUTE [place] Testing | | | | | | performed at [facility];[address] | | | | | | [address];[place], [place] | | | | | | [address] | | | | + + + [...] | | Fingerstick | performed at [facility];[address] | | LAB | | | | [address];[place], [place] | | | | | | [address] | | | | + + + [...] | | | | performed at [facility];[address] | | LAB | | | | [address];[place], [place] | | | | | | [address] | | | | + + + [...] | | | | performed at [facility] | | | | | | [facility];[place], [place] | | | | | | [address] | | | | + + + [...] | | Patient | performed at [facility];[address] | | LAB | | | | [address];[place] | | | | | | [address] | | | | + + + + + + + + | Specimen | + + | | + + + +---------+ + + | Performing | Address | City/State/Zipcode | Phone Number | | Organization | | | | + +---------+ + + | EXTERNAL LAB | | | | + +---------+ + + Protime KRISTINA (10/08/2016 2:39 AM PDT) + + + [...] | | | | performed at [facility];[address] | | | | | | [facility];[place], [place] | | | | | | [address] | | | | + + + [...] | | Basophils | performed at [facility];[address] | K/uL | LAB | | | | [address];[place], [place] | | | | | | [address] | | | | + + + [...] | | | | performed at [facility];[address] | mmol/L | LAB | | | | [address];[place] | | | | | | [address] | | | | + + + [...] | | | | performed at [facility];[address] | | LAB | | | | [address];[place], [place] | | | | | | [address] | | | | + + + [...] | | | | | | ACUTE [place] Testing | | | | | | performed at [facility];[address] | | | | | | [facility];[place], [place] | | | | | | [address] | | | | + + + [...] (500), | | | | | | image editor Vaishnavi Mueller | | | | | | (18) on 10/09/2016 | | | | | | 8:53:55 AM | | | | + + + + + + + + | Specimen | + + | | + + + + + | Narrative | Performed At | + + + | Historically converted procedure from [facility] | EXTERNAL LAB | + + + [...] Conversion - 02/04/2019 10:13 PM PDT This is [...]
--- OUTSIDE RECORDS SUMMARY | ~2019-12-30 | XMS | Encounter Summary ---
Demographics + + + | Address | [address] | | | [place] [address] | + + + | Home Phone [...] + + + | Author | [facility] | | | and [place] | + + + | Organization | [facility] | | | [...] Team Providers + +------+ + | Care Pipe Organ Builder Name | Role | Phone | + +------+ + PCP | Unavailable | + +------+ + Encounter Details +--------+ + + + + | Date | Type | Department | Care Team | Description | +--------+ + + + + | 05/14/ | Hospital | [facility] | Sowmya Shaikh MD | Fever; Diabetes | | 2011 - | Encounter | 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, | | | | | | continuous ([facility]); | | | | | | DVT (deep venous | | | | | | thrombosis) ([facility]); | | | | | | Bacteremia; | | | | | | Hyperphosphatemia; | | | | | | Anemia of chronic | | | | | | kidney failure; ESRD | | | | | | (end stage renal | | | | | | disease) ([facility]); | | | | | | Essential | | | | | | hypertension, | | | | | | benign; Secondary | | | | | | hyperparathyroidism | | | | | | (of renal origin) | | | | | | ([facility]); Bacteremia | | | | | | [...] documented as of this encounter Discharge Summaries Cralee Bejarano MD - 05/17/2012 9:56 AM PST Discharge Summaries by Carlee Bejarano MD at 05/17/12 0956 Author: Carlee Bejarano MD Service: (none) Author Type: Physician Filed: 05/17/12 1010 Date of Service: 05/17/12 0956 Status: Addendum Retort Firer: Carlee Bejarano MD (Physician) Related Notes: Original Note by Carlee Bejarano MD (Physician) filed at 05/17/12 1008 [facility] Service: Hospitalist Discharge Summary Date [...] According to Dr. Escobar blood cultures from [facility] outpatient dialysis unit where he had fever [...] W/ EGD; Surgeon: John Singleton MD; Location: [facility]; Se rvice: Gastroenterology; Laterality: N/A; Av fistula placement 05/06/2012 Procedure: AV FISTULA; Surgeon: Oskar Meyer MD; Location: [facility]; Service: Vascul ar; Laterality: Left; [...] 20 mg by mouth daily. ergocalciferol (DRISDOL) 86407 UNITS capsule Take 1 capsule by mouth once a week. 3 ca psule 0 folic acid-vitamin b complex-vitamin n-yjnfyinw-cxpk (DIALYVITE) 3 MG TABS Take 1 table [...] Temp Temp src Pulse Resp SpO2 Weight 05/17/ 0714 125/65 mmHg 98.1 F (36.7 C) Oral 74 18 100 % - 11/24/12 0356 130/69 mmHg 98.3 F (36.8 C) Oral 72 18 99 % 83 kg (182 lb 15.7 oz) 05/16/12 2324 128/60 mmHg 98.6 F (37 C) Oral 77 18 99 % - 05/16/12 2230 - 98.8 F (37.1 C) Oral - 18 100 % - 05/16/12 2203 - - - - - - 82.5 kg (181 lb 14.1 oz) 05/16/12 214 143/75 mmHg - - - - - [...] Procedure Component Value Units Date/Time POCT glucose [[id number]] Collected:05/17/12 0537 GLUCOSE,POC SCREEN 88 mg/dL Updated:05/17/12 0735 POCT glucose [[id number]] (Abnormal) Collected:05/16/12 2106 GLUCOSE,POC SCREEN 123 (H) mg/dL Updated:05/16/12 2304 POCT glucose [[id number]] (Abnormal) Collected:05/16/12 1708 GLUCOSE,POC SCREEN 132 (H) mg/dL Updated:05/16/12 1749 POCT glucose [[id number]] (Abnormal) Collected:05/16/12 1125 GLUCOSE,POC SCREEN 208 (H) mg/dL Updated:05/16/12 1657 CBC w/auto diff (reflex to manual) [[id number]] (Abnormal) Collected:05/16/12 0445 WBC 10.3 K/uL Updated:05/16/12 [...] BASOPHILS ABS 0.0 K/uL Renal function panel [[id number]] (Abnormal) Collected:05/16/12 0445 Specimen Information:Blood Updated:05/16/1251 SODIUM 135 mmol/L POTASSIUM 3.7 mmol/L CHLORIDE 95 (L) mmol/L CO2 25 mmol/L ANION GAP AGAP 18 mmol/L GLUCOSE 106 (H) mg/dL BUN 37 (H) mg/dL CREATININE 6.86 (H) mg/dL CALCIUM 7.5 (L) mg/dL Albumin 2.5 (L) g/dL PHOSPHORUS 3.3 mg/dL EGFR 9 (L) mL/min/1.73m2 POCT glucose [[id number]] (Abnormal) Collected:05/15/12 1140 GLUCOSE,POC SCREEN 173 (H) mg/dL Updated:05/15/12 1340 Urine microscopic only [[id number]] Collected:05/15/12599 WBC 0-2 /hpf Updated:05/15/12630 RBC 1-5 /hpf EPITHELIAL 1-5 /lpf BACTERIA NONE SEEN Urinalysis [[id number]] (Abnormal) Collected:05/15/12599 Specimen Information:Urine / Urine, Clean Catch Updated:05/15/12630 COLOR YELLOW CLARITY CLEAR SPECIFIC GRAVITY,URINE 1.020 LEUKOCYTE ESTERASE NEGATIVE NITRITE NEGATIVE UROBILINOGEN 0.2 mg/dL PROTEIN >300 (A) mg/dL PH,URINE 7.5 BLOOD TRACE (A) KETONES NEGATIVE mg/dL BILIRUBIN NEGATIVE GLUCOSE 100 (A) mg/dL Blood culture, 2 of 2 [[id number]] Collected:05/14/122141 Specimen Information:Blood Updated:05/15/12630 Specimen Description BLOOD CULTURE NO GROWTH AT THIS TIME CULTURE Result: Testing performed at [facility];[address] [place] [address] REPORT STATUS PENDING Blood culture, 1 of 2 [[id number]] Collected:05/14/121999 Specimen Information:Blood Updated:05/15/12629 Specimen Description BLOOD CULTURE NO GROWTH AT THIS TIME CULTURE Result: Testing performed at [facility];[address] [place] [address] REPORT STATUS PENDING Basic metabolic panel [[id number]] (Abnormal) Collected:05/14/122243 Specimen Information:Blood Updated:05/14/122320 SODIUM 137 mmol/L POTASSIUM 3.3 (L) mmol/L CHLORIDE 95 (L) mmol/L CO2 31 mmol/L ANION GAP AGAP 15 mmol/L GLUCOSE 150 (H) mg/dL BUN 20 mg/dL CREATININE 4.42 (H) mg/dL BUN/CREAT 5 CALCIUM 7.4 (L) mg/dL EGFR 15 (L) mL/min/1.73m2 Glycohemoglobin A1c [[id number]] (Abnormal) Collected:05/14/122243 Specimen Information:Blood Updated:05/14/122313 HEMOGLOBIN A1C 6.0 % ESTIMATED AVG GLUCOSE 126 (H) mg/dL CBC w/auto diff (reflex to manual) [[id number]] (Abnormal) Collected:05/14/122243 Specimen Information:Blood Updated:05/14/122255 WBC 7.5 [...] BASOPHILS ABS 0.0 K/uL Sedimentation Rate (ESR) [[id number]] (Abnormal) Collected:05/14/121999 Specimen Information:Blood Updated:05/14/122055 ESR 61 (H) mm/Hr CBC with differential [[id number]] (Abnormal) Collected:05/14/121999 Specimen Information:Blood Updated:05/14/122037 WBC 8.5 [...] (H) K/uL MORPHOLOGY 2+ Comprehensive metabolic panel [[id number]] (Abnormal) Collected:05/14/121999 Specimen Information:Blood Updated:05/14/122030 SODIUM 139 [...] U/L EGFR 16 (L) mL/min/1.73m2 C-Reactive Protein [[id number]] (Abnormal) Collected:05/14/121999 Specimen Information:Blood Updated:05/14/122030 CRP 10.0 (H) mg/dL X-ray chest 1 view [[id number]] Collected:05/14/122245 Order Status:Completed Updated:05/14/122252 Narrative: ENRIQUE NOLASCO [...] to have HD every MWF. Follow up: [facility] [address] [facility] [address] Make an appointment in 1 week Sarita Escobar DO [address] [facility] [address] [facility] [id number] Make an appointment on 05/26/2012 Current Discharge [...] 20 mg by mouth daily. ergocalciferol (DRISDOL) 54856 UNITS capsule Take 1 capsule by mouth once a week. Qty: 3 capsule, Refills: 0 folic acid-vitamin b complex-vitamin j-zbzjpmer-mlnt (DIALYVITE) 3 MG TABS Take 1 tablet [...] summary. CARLEE BEJARANO MD 05/17/2012 10:08 AM Reji [place] [...] + documented as of this encounter Progress Sean Gaitan - 05/17/2012 10:53 AM PSTFormatting of this note might be different from rodrigo ramires. Progress Notes by Sean Solorzano MD at 05/17/12 105 Author: Sean Solorzano MD Service: Nephrology Author Type: Physician Filed: 05/17/12 1109 Date of Service: 05/17/121052 Status: Signed Retort Firer: Sean Solorzano MD (Physician) [facility] Service: NEPHROLOGY Progress Note Enrique Potter 47 y.o. [id number] male [facility] Hospital Day: LOS: 3 days SUBJECTIVE Patient [...] hospital. DENIES ANY FEVER TODAY I called [place] hemodialysis unit and the blood culture on [...] W/ EGD; Surgeon: John Singleton MD; Location: [facility]; Se rvice: Gastroenterology; Laterality: N/A; Av fistula placement 05/06/2012 Procedure: AV FISTULA; Surgeon: Oskar Meyer MD; Location: [facility] OR; Service: Vascul ar; Laterality: Left; [...] WITH [employer]; KIDSUNEMPLOYED BEFORE WORKED AT [employer] IN [place] [employer]/ [employer] NONE ETOH QUIT 15 YEARS AGODRUGS: USES [...] chloride 10 mL Intravenous Q8H vitamin B rwejrfh-H-dptbh acid 1 tablet Oral Daily DISCONTD: linezolid [...] AND HYPERTENSIVE NEPHROSCLEROSIS ON HD -- AT [facility] HD UNIT UNDER DR COOK ALL WORK UP FOR VASCULITIS NEGATIVE LAST ADM C3, C4 levels wnl, hep b/c NR, RF NEG, KAPPA/LAMBDA RATIO WNL, HIV NR RASHID/LAMBDA RATIO 1.89 ANCA, ANTI GBM neg RENAL BX : renal bx 04/10/2012 SHOWED ESRD WITH LOTS OF SCARRING ,He is s/p diagnostic [facility] ey biopsy which shows advanced fibrotic changes [...] DR BEJARANO PT TO CONT HD AT [facility] HD UNDER DR COOK upon D/C BC [...] coordination of care. SEAN SOLORZANO MD 05/17/2012 LevyStephenie magen Franks - 05/17/2012 9:04 AM PST Progress Notes by Sarita Escobar DO at 05/17/12903 Author: Sarita Escobar DO Service: (none) Author Type: Physician Filed: 05/17/12911 Date of Service: 05/17/12903 Status: Signed Retort Firer: Sarita Escobar DO (Physician) [facility] Service: Infectious [...] chloride 10 mL Intravenous Q8H vitamin B roqvkde-B-mmqgi acid 1 tablet Oral Daily DISCONTD: linezolid [...] Code SARITA ESCOBAR DO 05/17/2012 onversion Transaction, Pr ovider Unknown - 05/17/2012 5:13 AM PST Progress Notes by Carola Albrecht RN at 05/17/12512 Author: Carola Albrecht RN Service: (none) Author Type: Registered Nurse Filed: 05/17/12513 Date of Service: 05/17/12512 Status: Signed Retort Firer: Carola Albrecht RN (Registered Nurse) No acute [...] 1800 Date of Service: 05/16/121750 Status: Signed Retort Firer: Sean Solorzano MD (Physician) [facility] Service: NEPHROLOGY Progress Note Enrique Potter 47 y.o. [id number] male [facility] Hospital Day: LOS: 2 days SUBJECTIVE Patient seen and examined. ADMITTED WITH FEVER HISTORY OF PRESENT ILLNESS The patient is a 47 y.o. male with significant past medical history of end-stage renal dise ase, chronic skin rash, recent staph aureus and Streptococcus aeruginosa bacteremia, recent GI bleed who presents with recurrent Gram-positive bacteremia despite vancomycin. The mahameden stefanie has been receiving vancomycin after each [...] hospital. DENIES ANY FEVER TODAY I called [place] hemodialysis unit and the blood culture on the did not show any gr owth, Dr. Escobar is going to wait till tomorrow morning and if the second blood culture is neg ative he may go home when I discuss with Dr. Esocbar. Past Medical History Diagnosis Date Hyperlipidemia Hypertension Diabetes mellitus type II Asthma Thyroid disease Anemia Abdominal pain, right upper quadrant 04/13/2012 DVT (deep venous thrombosis) Chronic kidney disease Dialysis patient GI bleed 04/30/2012 Past Surgical History Procedure Date Unlisted procedure arthroscopy Colonoscopy with egd 05/01/2012 Procedure: COLONOSCOPY W/ EGD; Surgeon: John Singleton MD; Location: [facility]; Se rvice: Gastroenterology; Laterality: N/A; Av fistula placement 05/06/2012 Procedure: AV FISTULA; Surgeon: Oskar Meyer MD; Location: [facility] OR; Service: Vascul ar; Laterality: Left; [...] WITH [employer]; KIDSUNEMPLOYED BEFORE WORKED AT [employer] IN [place]/ [employer] NONE ETOH QUIT 15 YEARS AGODRUGS: USES [...] chloride 10 mL Intravenous Q8H vitamin B cdqzqay-U-wzdui acid 1 tablet Oral Daily Continuous Infusions [...] AND HYPERTENSIVE NEPHROSCLEROSIS ON HD -- AT [facility] HD UNIT UNDER DR COOK ALL WORK UP FOR VASCULITIS NEGATIVE LAST ADM C3, C4 levels wnl, hep b/c NR, RF NEG, KAPPA/LAMBDA RATIO WNL, HIV NR RASHID/LAMBDA RATIO 1.89 ANCA, ANTI GBM neg RENAL BX : renal bx 04/10/2012 SHOWED ESRD WITH LOTS OF SCARRING ,[facility] which shows advanced fibrotic changes [...] DR BEJARANO PT TO CONT HD AT [facility] HD UNDER DR COOK upon D/C Time [...] Bejarano MD at 05/16/12 1012 Author: Carlee Bejaarno MD Service: (none) Author Type: Physician Filed: 05/16/12 1017 Date of Service: 05/16/12 101 Status: Signed Retort Firer: Carlee Bejarano MD (Physician) [facility] Service: [...] chloride 10 mL Intravenous Q8H vitamin B chiydvh-R-bywsy acid 1 tablet Oral Daily Continuous Infusions [...] Date/Time CBC w/auto diff (reflex to manual) [[id number]] (Abnormal) Collected:05/16/12444 WBC 10.3 K/uL Updated:05/16/12608 RBC [...] BASOPHILS ABS 0.0 K/uL Renal function panel [[id number]] (Abnormal) Collected:05/16/12444 Specimen Information:Blood Updated:05/16/12550 SODIUM 135 mmol/L POTASSIUM 3.7 mmol/L CHLORIDE 95 (L) mmol/L CO2 25 mmol/L ANION GAP AGAP 18 mmol/L GLUCOSE 106 (H) mg/dL BUN 37 (H) mg/dL CREATININE 6.86 (H) mg/dL CALCIUM 7.5 (L) mg/dL Albumin 2.5 (L) g/dL PHOSPHORUS 3.3 mg/dL EGFR 9 (L) mL/min/1.73m2 POCT glucose [[id number]] (Abnormal) Collected:05/15/12 1140 GLUCOSE,POC SCREEN 173 (H) mg/dL Updated:05/15/12 1340 Urine microscopic only [[id number]] Collected:05/15/12 06 WBC 0-2 /hpf Updated:05/15/12630 RBC 1-5 /hpf EPITHELIAL 1-5 /lpf BACTERIA NONE SEEN Urinalysis [[id number]] (Abnormal) Collected:05/15/12599 Specimen Information:Urine / Urine, Clean Catch Updated:05/15/12630 COLOR YELLOW CLARITY CLEAR SPECIFIC GRAVITY,URINE 1.020 LEUKOCYTE ESTERASE NEGATIVE NITRITE NEGATIVE UROBILINOGEN 0.2 mg/dL PROTEIN >300 (A) mg/dL PH,URINE 7.5 BLOOD TRACE (A) KETONES NEGATIVE mg/dL BILIRUBIN NEGATIVE GLUCOSE 100 (A) mg/dL Blood culture, 2 of 2 [[id number]] Collected:05/14/122141 Specimen Information:Blood Updated:05/15/12630 Specimen Description BLOOD CULTURE NO GROWTH AT THIS TIME CULTURE Result: Testing performed at [facility];[address] [place] [address] REPORT STATUS PENDING Blood culture, 1 of 2 [[id number]] Collected:05/14/121999 Specimen Information:Blood Updated:05/15/12629 Specimen Description BLOOD CULTURE NO GROWTH AT THIS TIME CULTURE Result: Testing performed at [facility];[address] [place] [address] REPORT STATUS PENDING Basic metabolic panel [[id number]] (Abnormal) Collected:05/14/122243 Specimen Information:Blood Updated:05/14/12 232 SODIUM 137 mmol/L POTASSIUM 3.3 (L) mmol/L CHLORIDE 95 (L) mmol/L CO2 31 mmol/L ANION GAP AGAP 15 mmol/L GLUCOSE 150 (H) mg/dL BUN 20 mg/dL CREATININE 4.42 (H) mg/dL BUN/CREAT 5 CALCIUM 7.4 (L) mg/dL EGFR 15 (L) mL/min/1.73m2 Glycohemoglobin A1c [[id number]] (Abnormal) Collected:05/14/122243 Specimen Information:Blood Updated:05/14/122313 HEMOGLOBIN A1C 6.0 % ESTIMATED AVG GLUCOSE 126 (H) mg/dL CBC w/auto diff (reflex to manual) [[id number]] (Abnormal) Collected:05/14/122243 Specimen Information:Blood Updated:05/14/122255 WBC 7.5 [...] BASOPHILS ABS 0.0 K/uL Sedimentation Rate (ESR) [[id number]] (Abnormal) Collected:05/14/121999 Specimen Information:Blood Updated:05/14/122055 ESR 61 (H) mm/Hr CBC with differential [[id number]] (Abnormal) Collected:05/14/121999 Specimen Information:Blood Updated:05/14/122037 WBC 8.5 [...] (H) K/uL MORPHOLOGY 2+ Comprehensive metabolic panel [[id number]] (Abnormal) Collected:05/14/121999 Specimen Information:Blood Updated:11/21/12 2031 SODIUM 139 mmol/L POTASSIUM 3.2 (L) mmol/L [...] U/L EGFR 16 (L) mL/min/1.73m2 C-Reactive Protein [[id number]] (Abnormal) Collected:05/14/121999 Specimen Information:Blood Updated:05/14/122030 CRP 10.0 (H) mg/dL X-ray chest 1 view [[id number]] Collected:05/14/122245 Order Status:Completed Updated:05/14/122252 Narrative: ENRIQUE NOLASCO [...] Status: Full Code CARLEE BEJARANO MD 05/16/2012 OYobelenStephenie wilson - 05/16/2012 8:56 AM PST Progress Notes by Sarita Escobar DO at 05/16/12 0856 Author: Sarita Escobar DO Service: (none) Author Type: Physician Filed: 05/16/12 0915 Date of Service: 05/16/12 0856 Status: Addendum Retort Firer: Sarita Escobar DO (Physician) Related Notes: Original Note by Sarita Escobar DO (Physician) filed at 05/16/12 0907 [facility] Service: Infectious Disease [...] chloride 10 mL Intravenous Q8H vitamin B tvtcqea-P-jnxjw acid 1 tablet Oral Daily Continuous Infusions [...] Code SARITA ESCOBAR DO 05/16/2012 onversion Transaction, Pr ovider Unknown - 05/16/2012 5:15 AM PST Progress Notes by Carola Albrecht RN at 05/16/12514 Author: aCrola Albrecht RN Service: (none) Author Type: Registered Nurse Filed: 05/16/12514 Date of Service: 05/16/12514 Status: Signed Retort Firer: Carola Albrecht RN (Registered Nurse) No changes from assessment. Pt. Slept through out the night. Pt. Denies pain and vital si gns were stable. Zoltan Gray ARNP - 05/15/2012 3:35 PM PSTFormatting of this note might be different from t he original. Progress Notes by Zoltan Garcia RN at 05/15/12 1535 Author: Zoltan Garcia RN Service: (none) Author Type: Registered Nurse Filed: 05/15/12 1535 Date of Service: 05/15/12 1535 Status: Signed Retort Firer: Zoltan Garcia RN (Registered Nurse) VSS. Pt. Resting quietly in bed. No acute observations. Will continue monitoring. Pt. Watching football most of the day and resting. Sowmya Daniels MD - 05/15/2012 3:23 PM PST Progress Notes by Sowmya Shaikh MD at 05/15/12 1523 Author: Sowmya Shaikh MD Service: Hospitalist Author Type: Physician Filed: 05/15/12 1718 Date of Service: 05/15/12 1523 Status: Addendum Retort Firer: Sowmya Shaikh MD (Physician) Related Notes: Original Note by Sowmya Shaikh MD (Physician) filed at 05/15/12 1530 [facility] Service: Hospitalist Progress Note Enrique Potter 47 y.o. [id number] male [facility] Patient Summary: The patient is a 47 [...] chloride 10 mL Intravenous Q8H vitamin B lgnghvd-P-nithi acid 1 tablet Oral Daily DISCONTD: ergocalciferol [...] Procedure Component Value Units Date/Time POCT glucose [[id number]] (Abnormal) Collected:05/15/12 1140 GLUCOSE,POC SCREEN 173 (H) mg/dL Updated:05/15/12 1340 Urine microscopic only [[id number]] Collected:05/15/12 06 WBC 0-2 /hpf Updated:05/15/12630 RBC 1-5 /hpf EPITHELIAL 1-5 /lpf BACTERIA NONE SEEN Urinalysis [[id number]] (Abnormal) Collected:05/15/12 0600 Specimen Information:Urine / Urine, Clean Catch Updated:05/15/12630 COLOR YELLOW CLARITY CLEAR SPECIFIC GRAVITY,URINE 1.020 LEUKOCYTE ESTERASE NEGATIVE NITRITE NEGATIVE UROBILINOGEN 0.2 mg/dL PROTEIN >300 (A) mg/dL PH,URINE 7.5 BLOOD TRACE (A) KETONES NEGATIVE mg/dL BILIRUBIN NEGATIVE GLUCOSE 100 (A) mg/dL Blood culture, 2 of 2 [[id number]] Collected:05/14/12 214 Specimen Information:Blood Updated:05/15/12630 Specimen Description BLOOD CULTURE NO GROWTH AT THIS TIME CULTURE Result: Testing performed at [facility];[address] [place] [address];[place] [address] REPORT STATUS PENDING Blood culture, 1 of 2 [[id number]] Collected:05/14/121999 Specimen Information:Blood Updated:05/15/12629 Specimen Description BLOOD CULTURE NO GROWTH AT THIS TIME CULTURE Result: Testing performed at [facility];[address] [place] [address];[place] [address] REPORT STATUS PENDING Basic metabolic panel [[id number]] (Abnormal) Collected:05/14/122243 Specimen Information:Blood Updated:05/14/122320 SODIUM 137 mmol/L POTASSIUM 3.3 (L) mmol/L CHLORIDE 95 (L) mmol/L CO2 31 mmol/L ANION GAP AGAP 15 mmol/L GLUCOSE 150 (H) mg/dL BUN 20 mg/dL CREATININE 4.42 (H) mg/dL BUN/CREAT 5 CALCIUM 7.4 (L) mg/dL EGFR 15 (L) mL/min/1.73m2 Glycohemoglobin A1c [[id number]] (Abnormal) Collected:05/14/122243 Specimen Information:Blood Updated:05/14/122313 HEMOGLOBIN A1C 6.0 % ESTIMATED AVG GLUCOSE 126 (H) mg/dL CBC w/auto diff (reflex to manual) [[id number]] (Abnormal) Collected:05/14/122243 Specimen Information:Blood Updated:05/14/122255 WBC 7.5 [...] BASOPHILS ABS 0.0 K/uL Sedimentation Rate (ESR) [[id number]] (Abnormal) Collected:05/14/121999 Specimen Information:Blood Updated:05/14/122055 ESR 61 (H) mm/Hr CBC with differential [[id number]] (Abnormal) Collected:05/14/121999 Specimen Information:Blood Updated:05/14/122037 WBC 8.5 [...] (H) K/uL MORPHOLOGY 2+ Comprehensive metabolic panel [[id number]] (Abnormal) Collected:05/14/121999 Specimen Information:Blood Updated:05/14/122030 SODIUM 139 [...] U/L EGFR 16 (L) mL/min/1.73m2 C-Reactive Protein [[id number]] (Abnormal) Collected:05/14/121999 Specimen Information:Blood Updated:05/14/122030 CRP 10.0 [...] the chest was obtained. COMPARISON: 04/10/2012 TAMARA DINGS: Right-sided dialysis catheter tip located region [...] and Hba1c is 6.0 SOWMYA SHAIKH MD uan Cook - 05/15/2012 1:04 PM PST Progress Notes by Juan Cook MD at 05/15/12 1304 Author: Juan Cook MD Service: Nephrology Author Type: Physician Filed: 05/24/12 4390 Date of Service: 05/15/12 1304 Status: Signed Retort Firer: Juan Cook MD (Physician) [facility] Service: NEPHROLOGY Progress Note Enrique Potter 47 y.o. [id number] male [facility] Hospital Day: LOS: 1 day Patient Summary: [...] W/ EGD; Surgeon: John Singleton MD; Location: [facility]; Se rvice: Gastroenterology; Laterality: N/A; Av fistula placement 05/06/2012 Procedure: AV FISTULA; Surgeon: Oskar Meyer MD; Location: [facility] OR; Service: Vascul ar; Laterality: Left; [...] WITH [employer]; KIDSUNEMPLOYED BEFORE WORKED AT [employer] [place] ETOH QUIT 15 YEARS AGODRUGS: USES [...] chloride 10 mL Intravenous Q8H vitamin B mgeiagc-G-nfqhn acid 1 tablet Oral Daily DISCONTD: ergocalciferol [...] THIS TIME CULTURE Value: Testing performed at [facility];[address] [place] [address] REPORT STATUS PENDING C-REACTIVE PROTEIN Collection Time 05/14/12 8:00 PM Component Value Range CRP 10.0 (*) <0.5 mg/dL SEDIMENTATION RATE, AUTOMATED Collection Time 05/14/12 8:00 PM Component Value Range ESR 61 (*) 0 - 15 mm/Hr BLOOD CULTURE, SET 2 Collection Time 05/14/12 9:42 PM Component Value Range Specimen Description BLOOD CULTURE NO GROWTH AT THIS TIME CULTURE Value: Testing performed at [facility];[address] [place] [address] REPORT STATUS PENDING BASIC METABOLIC PANEL Collection [...] 05/15/12652 Date of Service: 05/15/12652 Status: Signed Retort Firer: Carola Albrecht RN (Registered Nurse) No acute changes during the night. Pt slept well and denied any pain. onver quique Transaction, Provider Unknown - 05/15/2012 2:05 AM PST Progress Notes by Carola Albrecht RN at 05/15/12204 Author: Carola Albrecht RN Service: (none) Author Type: Registered Nurse Filed: 05/15/12205 Date of Service: 05/15/12204 Status: Signed Retort Firer: Carola Albrecht RN (Registered Nurse) Notified Dr. Colbert about pt.s K+ level. onver quique Transaction, Provider Unknown - 05/14/2012 10:44 PM PST Progress Notes by Xavier Toro RPH at 05/14/122243 Author: Xavier Toro RPH Service: (none) Author Type: Pharmacist Filed: 05/14/122243 Date of Service: 05/14/122243 Status: Signed Retort Firer: Xavier Toro RPH (Pharmacist) Note ccl 21.2ml/min meds reviewed Pharmacy will follow c 2244 docume nted in this encounter H&P Notes Sowmya Shaikh MD - 05/14/2012 9:46 PM PST H&P by Sowmya Shaikh MD at 05/14/122145 Author: Sowmya Shaikh MD Service: Hospitalist Author Type: Physician Filed: 05/28/12 1313 Date of Service: 05/14/122145 Status: Signed Retort Firer: Sowmya Shaikh MD (Physician) Related Notes: Original Note by Sowmya Shaikh MD (Physician) filed at 05/14/12 3973 Admission History & Physical Date of Admission: [...] again. [facility] [facility] as blood cultures are growing gram-positive cocci [...] mouth daily. Yes Historical Provider ergocalciferol (DRISDOL) 74935 UNITS capsule Take 1 capsule by mouth once a week. 04/15/12 04/15/13 Yes Vikram Colbert MD folic acid-vitamin b complex-vitamin j-dsvycriw-gmxz (DIALYVITE) 3 MG TABS Take 1 tablet [...] W/ EGD; Surgeon: John Singleton MD; Location: [facility]; Se rvice: Gastroenterology; Laterality: N/A; Av fistula placement 05/06/2012 Procedure: AV FISTULA; Surgeon: Oskar Meyer MD; Location: [facility]; Service: Vascul ar; Laterality: Left; Left arm possible right (Not in a hospital admission) Allergies Allergen Reactions Lisinopril Other (See Comments) "makes me sweat and knocked me out" Penicillins Other (See Comments) unknown Family history: Father:living at age 70 years and has DM2 Mother: with [place] at age 52 years 2 sisters are [...] WITH [employer]; KIDSUNEMPLOYED BEFORE WORKED AT [employer] IN [place] [employer] NONE ETOH QUIT 15 YEARS AGODRUGS: USES [...] grossly intact. 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 Psychiatric: Has a normal [...] floor Code Status: full Primary Care Physician: [facility] SOWMYA SHAIKH MD 05/14/2012 documented in this en counter Consult Notes Sarita Escobar - 05/15/2012 9:07 AM PST Consult* by Sarita Escobar DO at 05/15/12906 Author: Sarita Escobar DO Service: (none) Author Type: Physician Filed: 05/15/12925 Date of Service: 05/15/12906 Status: Signed Retort Firer: Sarita Escobar DO (Physician) [facility] Service: Infectious [...] W/ EGD; Surgeon: John Singleton MD; Location: [facility]; Se rvice: Gastroenterology; Laterality: N/A; Av fistula placement 05/06/2012 Procedure: AV FISTULA; Surgeon: Oskar Meyer MD; Location: [facility]; Service: Vascul ar; Laterality: Left; [...] 20 mg by mouth daily. ergocalciferol (DRISDOL) 67024 UNITS capsule Take 1 capsule by mouth once a week. 3 ca psule 0 folic acid-vitamin b complex-vitamin r-qweegbhh-ukae (DIALYVITE) 3 MG TABS Take 1 table [...] chloride 10 mL Intravenous Q8H vitamin B japwpll-X-mxunw acid 1 tablet Oral Daily DISCONTD: ergocalciferol [...] WITH [employer]; KIDSUNEMPLOYED BEFORE WORKED AT [employer] IN [place]/ [employer] NONE ETOH QUIT 15 YEARS AGODRUGS: USES [...] admission history and physical and discharge deal mmary from his hospitalization of April 30 and [...] have any respiratory symptoms to suggest such. Amado e also denies any symptoms of musculoskeletal illness to suggest secondary septic joint, dis citis, or abscess. Continue Zyvox for now and await identification and susceptibility of the positive blood cultures from the outpatient setting. Fevers are improved. Code Status: Full Code Primary Care Physician: [facility] Thank you for allowing me to participate in the care of this patient. I will continue to follow with you. SARITA ESCOBAR, DO 05/15/2012 Juan Rucker - 05/14 7:22 PM PST Consult* by Juan Cook MD at 05/14/121921 Author: Juan Cook MD Service: Nephrology Author Type: Physician Filed: 05/24/12 1749 Date of Service: 05/14/121921 Status: Signed Retort Firer: Juan Cook MD (Physician) [facility] Service: NEPHROLOGY CONSULT Note Enrique Potter 47 y.o. [id number] 07/[birth year] male [facility] Hospital Day: LOS: 0 days Date of Admission: 05/14/2012 Requesting Physician: ED provider/ Hospitalist Reason for CONSULTATION: ESRD History Obtained From: patient, RECORDS HISTORY OF PRESENT ILLNESS Patient with H End-stage renal disease, on hemodialysis Saturday, Saturday, [...] again. Hence the patient was sent to [facility]. Saturday's cultures are growing gram-positive cocci despite [...] W/ EGD; Surgeon: John Singleton MD; Location: [facility]; rvice: Gastroenterology; Laterality: N/A; Av fistula placement 05/06/2012 Procedure: AV FISTULA; Surgeon: Oskar Meyer MD; Location: [facility]; Service: Vascul ar; Laterality: Left; [...] tablet by mouth daily. 04/15/12 04/15/13 Yes Virkam Colbert MD citalopram (CELEXA) 20 MG tablet Take 20 mg by mouth daily. Yes Historical Provider ergocalciferol (DRISDOL) 74166 UNITS capsule Take 1 capsule by mouth once a week. 04/15/12 04/15/13 Yes Vikram Colbert MD folic acid-vitamin b complex-vitamin w-xmoinhbx-ceis (DIALYVITE) 3 MG TABS Take 1 tablet [...] WITH [employer]; KIDSUNEMPLOYED BEFORE WORKED AT [employer] IN [employer] NONE ETOH QUIT 15 YEARS AGODRUGS: USES [...] WITH [employer]; KIDSUNEMPLOYED BEFORE WORKED AT [employer] IN [place] NONE ETOH QUIT 15 YEARS AGODRUGS: USES [...] complex medical problems JUAN COOK MD 05/14/2012 [facility] documented in this en counter ED Notes Conversion Transaction, Provider Unknown - 05/14/2012 10:28 PM PSTFormatting of this note m ight be different from the original. ED Notes by Krista Amato RN at 05/14/122227 Author: Krista Amato RN Service: (none) Author Type: Registered Nurse Filed: 05/14/122227 Date of Service: 05/14/122227 Status: Signed Retort Firer: Krista Amato RN (Registered Nurse) Portable CXR at bedside Krista Amato RN 05/14/122227 onver quique Transaction, Provider Unknown - 05/14/2012 9:56 PM PST ED Notes by Krista Amato RN at 05/14/122155 Author: Krista Amato RN Service: (none) Author Type: Registered Nurse Filed: 05/14/122155 Date of Service: 05/14/122155 Status: Signed Retort Firer: Krista Amato RN (Registered Nurse) Dr Shaikh, hospitalist at bedside to examine pt Krista Amato RN 05/14/122155 onver quique Transaction, Provider Unknown - 05/14/2012 9:48 PM PST ED Notes by Krista Amato RN at 05/14/122147 Author: Krista Amato RN Service: (none) Author Type: Registered Nurse Filed: 05/14/122147 Date of Service: 05/14/122147 Status: Signed Retort Firer: Krista Amato RN (Registered Nurse) Pt resting quietly - pt aware that we still need a urine sample. Awaiting pending admissio n Krista Amato RN 05/14/122147 onver quique Transaction, Provider Unknown - 05/14/2012 8:46 PM PST ED Notes by Krista Amato RN at 05/14/122045 Author: Krista Amtao RN Service: (none) Author Type: Registered Nurse Filed: 05/14/122046 Date of Service: 05/14/122045 Status: Signed Retort Firer: Krista Amato RN (Registered Nurse) Pt updated on plan of care and reason for delay in obtaining second set of blood cultures - Krista Amato RN 05/14/122046 onver quique Transaction, Provider Unknown - 05/14/2012 8:14 PM PST ED Notes by Krista Amato RN at 05/14/122013 Author: Krista Amato RN Service: (none) Author Type: Registered Nurse Filed: 05/14/122013 Date of Service: 05/14/122013 Status: Signed Retort Firer: Krista Amato RN (Registered Nurse) ICU dialysis nurse requested to come draw second set of blood cultures from dialysis port p er Dr Yamil Amato RN 05/14/122013 onver quique Transaction, Provider Unknown - 05/14/2012 7:00 PM PST ED Notes by Krista Amato RN at 05/14/121899 Author: Krista Amato RN Service: (none) Author Type: Registered Nurse Filed: 05/14/121899 Date of Service: 05/14/121899 Status: Signed Retort Firer: Krista Amato RN (Registered Nurse) Dr Lobo at bedside to examine pt Krista Amato RN 05/14/121899 [place], Kenneth Warren MD - 05/14/2012 6:58 PM PST ED Provider Notes by Kenneth Lobo MD at 05/14/121857 Author: Kenneth Lobo MD Service: (none) Author Type: Physician Filed: 05/14/12 2324 Date of Service: 05/14/121857 Status: Signed Retort Firer: Kenneth Lobo MD (Physician) [facility] Department of Emergency Medicine 6:58 PM 05/14/2012 History of Present Illness Patient Identification Enrique Potter is a 47 y.o. male. Patient information was obtained from patient and friend. History/Exam limitations: none. Patient presented to the Emergency Department by: Car (PCP: [facility]. Ethylbenzene Converter Helper: Iain.) Chief Complaint Chief Complaint Patient presents [...] W/ EGD; Surgeon: John Singleton MD; Location: [facility]; Se rvice: Gastroenterology; Laterality: N/A; Av fistula placement 05/06/2012 Procedure: AV FISTULA; Surgeon: Oskar Meyer MD; Location: [facility]; Service: Vascul ar; Laterality: Left; [...] mouth daily. Yes Historical Provider ergocalciferol (DRISDOL) 51950 UNITS capsule Take 1 capsule by mouth once a week. 04/15/12 04/15/13 Yes Vikram Colbert MD folic acid-vitamin b complex-vitamin v-beydkdpc-nuex (DIALYVITE) 3 MG TABS Take 1 tablet [...] WITH [employer]; KIDSUNEMPLOYED BEFORE WORKED AT [employer] IN [place] NONE ETOH QUIT 15 YEARS AGODRUGS: USES [...] sore throat CV/Resp: Negative for chest pain, hiosyjmgn-hq-jgomsn, cough GI: Negative for abdominal pain, nausea, [...] 7:11 PM. [address]iscuss[address] case with Dr. Chavira, charge rn on-call, recommends that Dr. Christianson be consulted directly. 7:15 PM. Discussed case with Dr. Christianson, charge rn, states this is a patient of Dr. Cook. Will consult Dr. Cook. 7:17 PM. Discussed case with Dr. Cook, charge rn, knows patient. States patient has been having [...] on-call, knows about the patien t. Dr. Escobra knows about the patient and will see [...] Value Ref Range Date/Time Sedimentation Rate (ESR) [[id number]] (Abnormal) Collected:05/14/121999 Order Status:Completed Updated:05/14/122055 Specimen Information:Blood ESR 61 (H) 0 - 15 mm/Hr CBC with differential [[id number]] (Abnormal) Collected:05/14/121999 Order Status:Completed Updated:05/14/122037 Specimen Information:Blood [...] 0.5 K/uL MORPHOLOGY 2+ Comprehensive metabolic panel [[id number]] (Abnormal) Collected:05/14/121999 Order Status:Completed Updated:05/14/122030 Specimen Information:Blood [...] EGFR 16 (L) >60 mL/min/1.73m2 C-Reactive Protein [[id number]] (Abnormal) Collected:05/14/121999 Order Status:Completed Updated:05/14/122030 Specimen Information:Blood [...] its contents. MD Kenneth Kenny MD 05/14/12 8861 documented in this encounter Plan of Treatment [...] | Testing performed at | | | [facility];[address] [place] [address];[place] [address] CULTURE | | | NO GROWTH IN 5 DAYS. | | | Testing performed at [facility];[address] [place] [address] | | | [facility];[place] [address] REPORT STATUS | | | 05/20/2012 FINAL [...] DAYS. | | | Testing performed at [facility];[address] | | [address];[place] [address] REPORT STATUS | | | 05/20/2012 FINAL [...]
--- OUTSIDE RECORDS SUMMARY | ~2019-12-30 | XMS | Encounter Summary ---
Demographics + + + | Address | [address] | | | [place] [address] | + + + | Home Phone [...] Team Providers + +------+ + | Care Risk And Insurance Consultant Name | Role | Phone | + +------+ + PCP | Unavailable | + +------+ + Encounter Details +--------+ + + + + | Date | Type | Department | Care Team | Description | +--------+ + + + + | 09/10/ | Hospital | [facility] | Kelvin Marin, | Anemia; | | 2012 - | Encounter | [facility] | [address] | Hypoalbuminemia; | | | | CLINICAL DECISION | [place] [address] | ESRD (end stage | | 09/11/ | | [address] | [phone] | renal disease) on | | 2012 | | [place], [place] | | dialysis (HCC); | | | | [address] | | Acute blood loss | | | | [phone] | | anemia; Back pain, | | [...] 1800 Date of Service: 09/11/121749 Status: Signed Sound Recordist: Duyen Dawkins MD (Physician) [facility] Service: Hospitalist Discharge Summary Date [...] W/ EGD; Surgeon: John Singleton MD; Location: [facility] ENDOSCOPY; Se rvice: Gastroenterology; Laterality: N/A; Av fistula placement 05/06/2012 Procedure: AV FISTULA; Surgeon: Oskar Meyer MD; Location: [facility] MAIN OR; Service: Vascul ar; Laterality: Left; Left arm possible right Unlisted procedure arthroscopy shoulder rt , ligaments Knee arthroscopy 07/07/2012 Procedure: KNEE - ARTHROSCOPY; Surgeon: Duyen Raza MD; Location: [facility] MAIN OR; S ervice: Orthopedics; Laterality: Right; After 1530 Catheter removal 07/07/2012 Procedure: DIALYSIS CATHETER REMOVAL; Surgeon: Oskar Meyer MD; Location: [facility] BEDSIDE GA OCEDURE; Service: General; Laterality: Right; perm cath Dialysis fistula creation 07/07/2012 Procedure: DIALYSIS CATHETER INSERTION; Surgeon: Oskar Meyer MD; Location: [facility] BEDSIDE PROCEDURE; Service: General; Laterality: Left; temporary dialysis catheter Av fistula repair 07/11/2012 Procedure: AV FISTULA GRAFT REPAIR/REVISION; Surgeon: Oskar Meyer MD; Location: [facility] OR; Service: Vascular; Laterality: Left; Superficialization of brachiobasilic fistula and right IJ perm cath insertion Dialysis fistula creation 07/11/2012 Procedure: DIALYSIS CATHETER INSERTION; Surgeon: Oskar Meyer MD; Location: [facility] MAIN OR; Service: Vascular; Laterality: [...] 20 mg by mouth nightly. ergocalciferol (DRISDOL) 54619 UNITS capsule Take 1 capsule by mouth [...] persistant dizziness or light-headedness Follow up: [facility] [address] [place] [address] in 3 days Juan Cook MD [address] [facility] [address] Call Elizabeth Guzman MD [address] [facility] [address] Call Medication List As of 09/11/2012 5:58 PM CONTINUE taking these medications albuterol (2.5 MG/3ML) 0.083% nebulizer solution Commonly known as: PROVENTIL amlodipine 10 MG tablet Commonly known as: NORVASC b complex-vitamin c-folic acid 0.8 MG Tabs Cholecalciferol 2000 UNITS Tabs citalopram 20 MG tablet Commonly known as: CeleXA ergocalciferol 60250 UNITS capsule Commonly known as: DRISDOL Take [...] Notes by Lolis Pfeiffer RN at 09/11/12 1636 Author: Lolis Pfeiffer RN Service: Wound/Ostomy Care Author Type: Registered Nurse Filed: 09/11/12 1643 Date of Service: 09/11/12 1636 Status: Signed Sound Recordist: Lolis Pfeiffer RN (Registered Nurse) The patient [...] Type: Physician Filed: 12/17/122032 Date of Service: 09/11/12 1200 Status: Signed Sound Recordist: Juan Cook MD (Physician) [facility] Service: NEPHROLOGY dialysis Note Enrique Potter 47 y.o. [id number] 325/325-2 male [facility] Hospital Day: LOS: 1 day Enrique Potter [...] W/ EGD; Surgeon: John Singleton MD; Location: [facility] ENDOSCOPY; Se rvice: Gastroenterology; Laterality: N/A; Av fistula placement 05/06/2012 Procedure: AV FISTULA; Surgeon: Oskar Meyer MD; Location: [facility] MAIN OR; Service: Vascul ar; Laterality: Left; Left arm possible right Unlisted procedure arthroscopy shoulder rt , ligaments Knee arthroscopy 07/07/2012 Procedure: KNEE - ARTHROSCOPY; Surgeon: Duyen Raza MD; Location: [facility] MAIN OR; S ervice: Orthopedics; Laterality: Right; After 1530 Catheter removal 07/07/2012 Procedure: DIALYSIS CATHETER REMOVAL; Surgeon: Oskar Meyer MD; Location: [facility] BEDSIDE GA OCEDURE; Service: General; Laterality: Right; perm cath Dialysis fistula creation 07/07/2012 Procedure: DIALYSIS CATHETER INSERTION; Surgeon: Oskar Meyer MD; Location: [facility] BEDSIDE PROCEDURE; Service: General; Laterality: Left; temporary dialysis catheter Av fistula repair 07/11/2012 Procedure: AV FISTULA GRAFT REPAIR/REVISION; Surgeon: Oskar Meyer MD; Location: [facility] OR; Service: Vascular; Laterality: Left; Superficialization of brachiobasilic fistula and right IJ perm cath insertion Dialysis fistula creation 07/11/2012 Procedure: DIALYSIS CATHETER INSERTION; Surgeon: Oskar Meyer MD; Location: [facility] MAIN OR; Service: Vascular; Laterality: [...] BIOLOGICAL; 2 STEP KIDSUNEMPLOYED BEFORE WORKED AT [employer] IN [place] NONE ETOH QUIT 15 YEARS AGODRUGS: quit [...] chloride 10 mL Intravenous Q8H vitamin B vthedbo-V-egadm acid 1 tablet Oral Daily with breakfast [...] HAND SPECIAL REQUESTS Value: Testing performed at [facility];[address] [place] [address] CULTURE NO GROWTH AT THIS TIME CULTURE Value: Testing performed at [facility];[address] [place] [address] REPORT STATUS PENDING BLOOD CULTURE, SET 2 Collection Time 09/10/12 7:44 PM Component Value Range Specimen Description BLOOD SPECIAL REQUESTS R HAND SPECIAL REQUESTS Value: Testing performed at [facility];[address] [place] [address] CULTURE NO GROWTH AT THIS TIME CULTURE Value: Testing performed at [facility];[address] [place] [address] REPORT STATUS PENDING POCT GLUCOSE Collection Time [...] Progress Notes by Eladio Clinton RN at 09/11/12845 Author: Eladio Clinton RN Service: (none) Author Type: Geospatial Information Scientist Filed: 09/11/1251 Date of Service: 09/11/12845 Status: Signed Sound Recordist: Eladio Clinton RN (Geospatial Information Scientist) Case Management: Met with patient to discuss discharge plan. He lives in [place] with his spouse. He gets HD M-W-F. He uses a walker or w/c. PCP is at the [facility] in [facility]. His spouse change his wound dressing. Family to transport. onver quique Transaction, Provider Unknown - 09/11/2012 3:38 AM PDT Progress Notes by Lou Mcclellan RN at 09/11/12337 Author: Lou Mcclellan RN Service: (none) Author Type: Registered Nurse Filed: 09/11/12341 Date of Service: 09/11/12337 Status: Signed Sound Recordist: Lou Mcclellan RN (Registered Nurse) Dr. Siddiqi [...] 09/10/122033 Date of Service: 09/10/122033 Status: Signed Sound Recordist: Carmina Lara RPH (Pharmacist) Clinical Pharmacy Note: Renal Monitoring Enrique Potter 47 y.o. male Height: 170.2 cm Weight: 73.8 kg Patient is on hemodialysis. Pharmacy dosing for renal function per Dr. Marin. Currently, there are no medications needing to be adjusted. Pharmacy will continue to monit or for changes in medication orders and adjust accordingly. Carmina Lara, PharmD 09/10/2012 8:33 PM docume nted in this encounter H&P Notes Kelvin Marin MD - 09/10/2012 7:01 PM PDTFormatting of this note might be different fr om the original. H&P by Kelvin Marin MD at 09/10/121900 Author: Kelvin Marin MD Service: (none) Author Type: Physician Filed: 09/11/12 1010 Date of Service: 09/10/121900 Status: Signed Sound Recordist: Kelvin Marin MD (Physician) Related Notes: Original Note by Kelvin Marin MD (Physician) filed at 09/11/12 0717 [facility] Service: Hospitalist Admission History & Physical Date [...] W/ EGD; Surgeon: John Singleton MD; Location: [facility] ENDOSCOPY; Se rvice: Gastroenterology; Laterality: N/A; Av fistula placement 05/06/2012 Procedure: AV FISTULA; Surgeon: Oskar Meyer MD; Location: [facility] MAIN OR; Service: Vascul ar; Laterality: Left; Left arm possible right Unlisted procedure arthroscopy shoulder rt , ligaments Knee arthroscopy 07/07/2012 Procedure: KNEE - ARTHROSCOPY; Surgeon: Duyen Raza MD; Location: [facility] MAIN OR; S ercherie: Orthopedics; Laterality: Right; After 1530 Catheter removal 07/07/2012 Procedure: DIALYSIS CATHETER REMOVAL; Surgeon: Oskar Meyer MD; Location: [facility] BEDSIDE GA OCEDURE; Service: General; Laterality: Right; perm cath Dialysis fistula creation 07/07/2012 Procedure: DIALYSIS CATHETER INSERTION; Surgeon: Oskar Meyer MD; Location: [facility] BEDSIDE PROCEDURE; Service: General; Laterality: Left; temporary dialysis catheter Av fistula repair 07/11/2012 Procedure: AV FISTULA GRAFT REPAIR/REVISION; Surgeon: Oskar Meyer MD; Location: [facility] OR; Service: Vascular; Laterality: Left; Superficialization of brachiobasilic fistula and right IJ perm cath insertion Dialysis fistula creation 07/11/2012 Procedure: DIALYSIS CATHETER INSERTION; Surgeon: Oskar Meyer MD; Location: [facility] MAIN OR; Service: Vascular; Laterality: [...] BIOLOGICAL; 2 STEP KIDSUNEMPLOYED BEFORE WORKED AT [employer] [place] NONE ETOH QUIT 15 YEARS AGODRUGS: quit [...] Admission Code Status: Prior Primary Care Physician: [facility] Kelvin Marin MD 09/10/2012 documented in this encounter Consult Notes Juan Cook - 09/10/2012 7:09 PM PDT Consult* by Juan Cook MD at 09/10/121908 Author: Juan Cook MD Service: Nephrology Author Type: Physician Filed: 12/17/122013 Date of Service: 09/10/121908 Status: Signed Sound Recordist: Juan Cook MD (Physician) [facility] Service: NEPHROLOGY CONSULT Note Enrique Potter 47 y.o. [id number] 04/02 male [facility] Hospital Day: LOS: 0 days Date [...] W/ EGD; Surgeon: John Singleton MD; Location: [facility] ENDOSCOPY; Se rvice: Gastroenterology; Laterality: N/A; Av fistula placement 05/06/2012 Procedure: AV FISTULA; Surgeon: Oskar Meyer MD; Location: [facility] MAIN OR; Service: Vascul ar; Laterality: Left; Left arm possible right Unlisted procedure arthroscopy shoulder rt , ligaments Knee arthroscopy 07/07/2012 Procedure: KNEE - ARTHROSCOPY; Surgeon: Duyen Raza MD; Location: [facility] MAIN OR; S ervice: Orthopedics; Laterality: Right; After 1530 Catheter removal 07/07/2012 Procedure: DIALYSIS CATHETER REMOVAL; Surgeon: Oskar Meyer MD; Location: [facility] BEDSIDE GA OCEDURE; Service: General; Laterality: Right; perm cath Dialysis fistula creation 07/07/2012 Procedure: DIALYSIS CATHETER INSERTION; Surgeon: Oskar Meyer MD; Location: [facility] BEDSIDE PROCEDURE; Service: General; Laterality: Left; temporary dialysis catheter Av fistula repair 07/11/2012 Procedure: AV FISTULA GRAFT REPAIR/REVISION; Surgeon: Oskar Meyer MD; Location: [facility] N OR; Service: Vascular; Laterality: Left; Superficialization of brachiobasilic fistula and right IJ perm cath insertion Dialysis fistula creation 07/11/2012 Procedure: DIALYSIS CATHETER INSERTION; Surgeon: Oskar Meyer MD; Location: [facility] OR; Service: Vascular; Laterality: Left; removed dialysis [...] BIOLOGICAL; 2 STEP KIDSUNEMPLOYED BEFORE WORKED AT [employer] IN [place] NONE ETOH QUIT 15 YEARS AGODRUGS: quit [...] PM Component Value Range ARM BAND NUMBER [id number] ARM BAND NUMBER Value: Testing performed at [facility];[address] [place] [address];[place] [address] ABO/RH(D) O POSITIVE ABO/RH(D) Value: Testing performed at [facility];[address] [place] [address];[place] [address] ANTIBODY SCREEN PENDING IMAGING: Reviewed MRI SPINE [...] evaluation of the cervical and thoracic spine ivone montano. Patient's old records and labs were reviewed [...] complex medical problems JUAN COOK MD 09/10/2012 Mikhail Urbina 09/10/2012 6:59 PM PDT Consult* by Elizabeth Guzman MD at 09/10/121858 Author: Elizabeth Guzman MD Service: Gastroenterology Author Type: Physician Filed: 09/11/12 1718 Date of Service: 09/10/121858 Status: Signed Sound Recordist: Elizabeth Guzman MD (Physician) Related Notes: Original Note by Elizabeth Guzman MD (Physician) filed at 09/10/12 1 954 [facility] Service: Gastroenterology Initial Consult Note Date of [...] dialysis. The patient was then brought to [facility] Emergency Department. He was found to have anemia. He was admitted for further evaluation. The patient denied having nausea, vomiting, heart burn, abdominal pain. He had 2 bowel movements a day. He had brown colored stool. The patient was admitted in April 2012 for rectal bleeding. The patient had an EGD and colonoscopy done by Dr. Mani. His EGD showed the patient had a [...] W/ EGD; Surgeon: John Singleton MD; Location: [facility] ENDOSCOPY; Se rvice: Gastroenterology; Laterality: N/A; Av fistula placement 05/06/2012 Procedure: AV FISTULA; Surgeon: Oskar Meyer MD; Location: [facility] MAIN OR; Service: Vascul ar; Laterality: Left; Left arm possible right Unlisted procedure arthroscopy shoulder rt , ligaments Knee arthroscopy 07/07/2012 Procedure: KNEE - ARTHROSCOPY; Surgeon: Duyen Raza MD; Location: [facility] MAIN OR; S ervice: Orthopedics; Laterality: Right; After 1530 Catheter removal 07/07/2012 Procedure: DIALYSIS CATHETER REMOVAL; Surgeon: Oskar Meyer MD; Location: [facility] BEDSIDE GA OCEDURE; Service: General; Laterality: Right; perm cath Dialysis fistula creation 07/07/2012 Procedure: DIALYSIS CATHETER INSERTION; Surgeon: Oskar Meyer MD; Location: [facility] BEDSIDE PROCEDURE; Service: General; Laterality: Left; temporary dialysis catheter Av fistula repair 07/11/2012 Procedure: AV FISTULA GRAFT REPAIR/REVISION; Surgeon: Oskar Meyer MD; Location: [facility] N OR; Service: Vascular; Laterality: Left; Superficialization of brachiobasilic fistula and right IJ perm cath insertion Dialysis fistula creation 07/11/2012 Procedure: DIALYSIS CATHETER INSERTION; Surgeon: Oskar Meyer MD; Location: [facility] MAIN OR; Service: Vascular; Laterality: [...] Cook. Code Status: Prior Primary Care Physician: [facility] Thank you for allowing me to [...] 09/10/121942 Date of Service: 09/10/121942 Status: Signed Sound Recordist: Gale Orona RN (Registered Nurse) at bedside (Dr. Garza). Gale Orona RN 09/10/121942 onver quique Transaction, Provider Unknown - 09/10/2012 7:04 PM PDT ED Notes by Gale Orona RN at 09/10/121903 Author: Gale Orona RN Service: (none) Author Type: Registered Nurse Filed: 09/10/121903 Date of Service: 09/10/121903 Status: Signed Sound Recordist: Gale Orona RN (Registered Nurse) Patient returned from MRI. Gale Orona RN 09/10/121903 onver quique Transaction, Provider Unknown - 09/10/2012 6:45 PM PDT ED Notes by Gale Orona RN at 09/10/121844 Author: Gale Orona RN Service: (none) Author Type: Registered Nurse Filed: 09/10/121844 Date of Service: 09/10/121844 Status: Signed Sound Recordist: Gale Orona RN (Registered Nurse) Care assumed of patient. Patient remains in MRI. Gale Orona RN 09/10/121844 onver quique Transaction, Provider Unknown - 09/10/2012 5:32 PM PDT ED Notes by Adeola White at 09/10/121731 Author: Adeola White Service: (none) Author Type: Tank Cleaning Supervisor Filed: 09/10/121732 Date of Service: 09/10/121731 Status: Signed Sound Recordist: Adeola White (Tank Cleaning Supervisor) Patient given MRI safety sheet to fill out. Adeola White 09/10/121732 uyen Soto - 09/10/2012 4:14 PM PDTFormatting of this note might be different from the orig inal. ED Provider Notes by Duyen Choudhary MD at 09/10/121613 Author: Duyen Choudhary MD Service: (none) Author Type: Physician Filed: 09/11/12 0002 Date of Service: 09/10/121613 Status: Signed Sound Recordist: Duyen Choudhary MD (Physician) Procedure Orders: 1. Critical Care [[id number]] ordered by Duyen Choudhary MD at 09/10/121935 [facility] Department of Emergency Medicine History of Present Illness Patient Identification Enrique oPtter is a 47 y.o. male presenting with fatigue Patient information was obtained from patient. History/Exam limitations: none. Patient presented to the Emergency Department Car Chief Complaint Chief Complaint Patient presents with Referral "my fistula infiltrated I need my back checked and I need a blood transfusion" Enrique Potter is a 47 y.o. male [...] rest with no relief. Primary care provider: [facility] Recent admission for the same: "Date [...] state of health and is still in th e usual state of health, but he missed [...] he went to the emergency room at [facility], where he had a neck pain and was foun d to be anemic and transferred to [facility]. At [facility] his hemoglobin was 5.7 and hematocrit 17.9. [...] with discharge 2. End-stage renal disease. IDr. reid on [...] W/ EGD; Surgeon: John Singleton MD; Location: [facility] ENDOSCOPY; Se rvice: Gastroenterology; Laterality: N/A; Av fistula placement 05/06/2012 Procedure: AV FISTULA; Surgeon: Oskar Meyer MD; Location: [facility] MAIN OR; Service: Vascul ar; Laterality: Left; Left arm possible right Unlisted procedure arthroscopy shoulder rt , ligaments Knee arthroscopy 07/07/2012 Procedure: KNEE - ARTHROSCOPY; Surgeon: Duyen Raza MD; Location: [facility] MAIN OR; ervic: Orthopedics; Laterality: Right; After 1530 Catheter removal 07/07/2012 Procedure: DIALYSIS CATHETER REMOVAL; Surgeon: Oskar Meyer MD; Location: [facility] BEDSIDE GA OCEDURE; Service: General; Laterality: Right; perm cath Dialysis fistula creation 07/07/2012 Procedure: DIALYSIS CATHETER INSERTION; Surgeon: Oskar Meyer MD; Location: [facility] BEDSIDE PROCEDURE; Service: General; Laterality: Left; temporary dialysis catheter Av fistula repair 07/11/2012 Procedure: AV FISTULA GRAFT REPAIR/REVISION; Surgeon: Oskar Meyer MD; Location: [facility] OR; Service: Vascular; Laterality: Left; Superficialization of brachiobasilic fistula and right IJ perm cath insertion Dialysis fistula creation 07/11/2012 Procedure: DIALYSIS CATHETER INSERTION; Surgeon: Oskar Meyer MD; Location: [facility] MAIN OR; Service: Vascular; Laterality: [...] by mouth nightly. Historical Provider ergocalciferol (DRISDOL) 42223 UNITS capsule Take 1 capsule by mouth [...] BIOLOGICAL; 2 STEP KIDSUNEMPLOYED BEFORE WORKED AT [employer] IN [place] NONE ETOH QUIT 15 YEARS AGODRUGS: quit [...] motor deficits, moving all extremities equally, equal senior applications engineer, no sensory deficit Psych: Appropriate affect, no [...] the patient to coordinate dialysis with t barbie blood transfusions Discussing the case with Dr. [...] (10 mg Oral Given 09/10/122139) vitamin B gfyupzm-S-mbwlc acid (NEPHRO-THU) tablet 1 tablet (not administered) [...] 0.9 % infusion ( Intravenous New Bag 09/10/122029) dextrose 10 % infusion (not administered) dextrose [...] were reviewed Patient records reviewed in the [facility] information systems. I carefully reviewed the record s with regard to the past medical/surgical history, medications, and allergies. Consultations and phone calls: As above Laboratory Evaluation: Results Procedure Component Value Ref Range Date/Time CBC with differential [[id number]] (Abnormal) Collected:09/10/121649 Order Status:Completed Updated:09/10/121745 Specimen Information:Blood [...] Estimate INCREASED MORPHOLOGY 2+ Comprehensive metabolic panel [[id number]] (Abnormal) Collected:09/10/121649 Order Status:Completed Updated:09/10/121734 Specimen Information:Blood SODIUM 137 135 - 143 [...] U/L EGFR 15 (L) >60 mL/min/1.73m2 Amylase [[id number]] Collected:09/10/121649 Order Status:Completed Updated:09/10/121734 Specimen Information:Blood AMYLASE 53 25 - 115 U/L Lipase [[id number]] Collected:09/10/121649 Order Status:Completed Updated:09/10/121734 Specimen Information:Blood LIPASE 81 73 - 393 U/L aPTT [[id number]] (Abnormal) Collected:09/10/121649 Order Status:Completed Updated:09/10/121722 Specimen Information:Blood APTT 33 (H) 23 - 32 seconds Protime [[id number]] Collected:09/10/121649 Order Status:Completed Updated:09/10/121722 Specimen Information:Blood INR [...] at 16:32 Rhythm: Sinus Ventricular Rate: 82 GA Interval: Normal ST Segments: Normal Significant Q-waves: None Blocks: None Cullom: Normal Additional Comments: No acute ischemia ED [...] HAND | | | Testing performed at [facility];[address] [facility] | | | [facility];[place] [address] CULTURE | | | NO GROWTH IN 5 DAYS. | | | Testing performed at [facility];[address] [facility] [address] | | | REPORT STATUS 09/16/2012 FINAL [...] HAND | | | Testing performed at [facility];[address] [place] [address] | | | W[place]ciech;[place] [address] CULTURE | | | NO GROWTH IN 5 DAYS. | | | Testing performed at [facility];[address] [place] [address];[place] [address] | | | REPORT STATUS 09/16/2012 FINAL [...] Rad Conversion - 02/13/2019 4:30 PM PDT HISTORY:Neck [...]
--- OUTSIDE RECORDS SUMMARY | ~2019-12-30 | XMS | Encounter Summary ---
Demographics + + + | Address | [address] | | | [place] [address] | + + + | Home Phone [...] + + + | Author | [facility] | | | and [place] | + + + | Organization | [facility] | | | and [...] Team Providers + +------+ + | Care Acid Concentrator Name | Role | Phone | + +------+ + | Andry Deng DO | PCP | | + +------+ + Encounter Details +--------+ + + + + | Date | Type | Department | Care Team | Description | +--------+ + + + + | 04/05/ | Orders Only | [facility] | Conversion | | | 2013 | | INFECTIOUS DISEASE | Transaction, | | | | | [address] | Provider Unknown | | | | | [place], [place] | [phone] | | | | | [address] | | | | | | [phone] | | | +--------+ + + + [...]
--- OUTSIDE RECORDS SUMMARY | ~2019-12-30 | XMS | Encounter Summary ---
Demographics + + + | Address | [address] | | | [place] [address] | + + + | Home Phone | | + + + | Preferred Language | Unknown | + + + | Marital Status | Single | + + + | Adventism Affiliation | Unknown | + + + | Race | or | + + + | Ethnic Group | Not or | + + + Author + + + | Author | [facility] | + + + | Organization | [facility] | + + + | [...] Team Providers + +------+ + | Care Barrel Finisher Name | Role | Phone | + [...] Chirag Vogel, | Evaluation of | | 2019 | on | at Physician's | PharmD [address] | response to | | | | [address] | [facility] | medications | | | | [address] | [place] [address] | | | | | Physician's | [phone] | | | | | Pavilion, [facility] floor | | | | | | [place], [place] | | | | | | [address] | | | | | | [phone] | | | +--------+ + + + [...]
--- OUTSIDE RECORDS SUMMARY | ~2019-12-30 | XMS | Encounter Summary ---
Demographics + + + | Address | [address] | | | [place] [address] | + + + | Home Phone [...] Team Providers + +------+ + | Care Stamp Collector Name | Role | Phone | + +------+ + PCP | Unavailable | + +------+ + Encounter Details +--------+ + + + + | Date | Type | Department | Care Team | Description | +--------+ + + + + | 04/30/ | Hospital | [facility] | Al Coon DO | GI bleeding; | | 2011 - | Encounter | [facility] | [address] | Diabetes mellitus | | | | CARE FLOOR [address] | [place] [address] | with ESRD (end-stage | | | | [address] | [phone] | renal disease) | | 2011 | | [place], [place] | | (HCC); GI bleed; | | | | [address] | | Hypoalbuminemia; | | | | [phone] | | Hypokalemia; | | | | [...] | | | | | | ([facility]); Amphetamine | | | | | | [...] Physician Filed: 05/02/12 1112 Date of Service: 05/02/121106 Status: Signed Substation Supervisor: Johnathon Colbert MD (Physician) [facility] Service: Hospitalist Physician Discharge Summary Pt: Enrique Potter AGE/SEX: 47 y.o. male ROOM: [address] [place] [address] PCP: [facility] : 1965 Admit date: 04/30/2012 Discharge date [...] worsened each time, so he presented at [facility] in [place], [place], where he continued to have GI bleeding and was transferred to [facility] for GI and ESRD support. Patient [...] on Coumadin. INR last nig ht at [facility] found to be 3.9 . In ED [...] Qty: 17 Doses, Refills: 0 ergocalciferol (DRISDOL) 81173 UNITS capsule Take 1 capsule by mouth [...] PCP 1 week Signed: [facility]ERT [facility]02/2012 11:07 AM documented in this enc [...] Progress Notes by Janene Robbins RN at 05/02/121499 Author: Janene Robbins RN Service: (none) Author Type: Registered Nurse Filed: 05/02/12 7096 Date of Service: 05/02/121499 Status: Signed Substation Supervisor: Janene Robbins RN (Registered Nurse) Pt discharged [...] 1128 Date of Service: 05/02/121119 Status: Signed Substation Supervisor: Sean Reid MD (Physician) [facility] Service: NEPHROLOGY Progress Note Enrique Potter 47 y.o. [id number] 4448/4448-1 male [facility] Hospital Day: LOS: 2 days SUBJECTIVE Patient seen and examined. On HD GI Bleeding, Blood in stool HISTORY OF PRESENT ILLNESS The patient is a 47 y.o. male who presents with GI bleed, started yesterday, had several bl oody bowel movements last night which worsened each time, so he presented at [facility] in [place], [place], where he continued to have GI bleeding and was transferred to [facility] for GI and ESRD support. Patient was recently hospitalized at [facility], admitted 04/02/12, and diagnosed with MSSA bacte remia and ARF requiring HD. Patient had L PICC line, later removed, and permacath placed, an d HD started with Dr Cook vp informatics. ID Dr Ford was also consulted. He is being treated w ith Vancomycin IV on HD days (MWF). After discharge, patient had US for vein mapping and was found to have upper extremity and IJ DVT's as shown in US report below, and patient was sta rted on Coumadin. INR last night at [facility] found to be 3.9 . In ED here the patient has been ordered to receive 2 PRBC's, 1 FFP, and IV protonix.,Jen gee been consulted. Nephrology consulted for evaluation and management of ESRD AND MAINTENANCE HD -- UNDER DR ASHFORD AT [place] ACUTE GI BLEEDING, SEVERE Associated with fluid electrolyte acid base imbalances HAPPILY FOR 22 YEARS, LIVES in [place] AT HOME WITH , [employer]; KIDSUNE MPLOYED BEFORE WORKED AT [employer] IN [employer]/ [employer] COURSE SMOKE NONE ETOH QUIT 15 YEARS [...] W/ EGD; Surgeon: John Yeung MD; Location: [facility] ENDOSCOPY; rvice: Gastroenterology; Laterality: N/A; History Social [...] WITH [employer]; KIDSUNEMPLOYED BEFORE WORKED AT [employer] IN [employer]MOKE NONE ETOH QUIT 15 YEARS AGODRUGS: USES [...] system. The possibi lity of "sound alike" plant biology professor errors, addition and/or deletions may occur. If there is any question about this report please contact the originating radiologist. Electronically s igned by Mark Stark MD on 04/24/2012 12:28 PM CASE: [id number] PATIENT: ENRIQUE POTTER Surgical Pathology Report PATHOLOGIC DIAGNOSIS: KIDNEY, NEEDLE CORE BIOPSY: - SEVERE NODULAR AND GLOBAL GLOMERULOSCLEROSIS CONSISTENT WITH DIABETIC NEPHROPATHY. - HYPERTENSIVE VASCULAR CHANGES. - SEVERE TUBULAR ATROPHY AND INTERSTITIAL FIBROSIS. COMMENT: Dr. Cook has been phoned with this preliminary diagnosis on April 11, 2012. TECHNICAL NOTE: This case was seen and processed at [facility] in [place], [place]. (Report #: [id number]). AMW:clarisa CLINICAL HISTORY: 04/10/2012. (R) renal bx [...] TO DIABETES AND HYPERTENSIVE NEPHROSCLEROSIS ON HD - AT [facility] HD UNIT UNDER DR COOK ALL WORK [...] without HEPARIN PT TO CONT HD AT [facility] HD UNDER DR COOK Time spend over [...] 05/02/12928 Date of Service: 05/02/12927 Status: Signed Substation Supervisor: Jose Rafael Cesar RPH (Pharmacist) Vancomycin update- vancomycin dose was not given after dialysis on 05/01, it was ordered but nursing missed giving it. Patient is being dialyzed now. I checked a random level with thi s am labs and it was 9.87. Instead of 750mg, will give 1250mg IV after HD today, then resum e the dosing of 750mg after ea HD. onzee quique Transaction, Provider Unknown - 05/01/2012 10:55 AM PST Progress Notes by Jose Rafael Cesar RPH at 05/01/12 1055 Author: Jose Rafael Cesar RPH Service: (none) Author Type: Pharmacist Filed: 05/01/12 1055 Date of Service: 05/01/12 105 Status: Signed Substation Supervisor: Jose Rafael Cesar RPH (Pharmacist) HD today, will receive vancomycin 750mg after HD Sean Willis - 05/01/2012 10:52 AM PSTFormatting of this note might be different from the origi nal. Progress Notes by Sean Reid MD at 05/01/12 1052 Author: Sean Redi MD Service: Nephrology Author Type: Physician Filed: 05/01/12 1110 Date of Service: 05/01/12 105 Status: Signed Substation Supervisor: Sean Reid MD (Physician) [facility] Service: NEPHROLOGY Progress Note Enrique Potter 47 y.o. [id number] 4448/4448-1 male [facility] Hospital Day: LOS: 1 day SUBJECTIVE Patient seen and examined. GI Bleeding, Blood in stool HISTORY OF PRESENT ILLNESS The patient is a 47 y.o. male who presents with GI bleed, started yesterday, had several bl oody bowel movements last night which worsened each time, so he presented at [facility] in [place], [place], where he continued to have GI bleeding and was transferred to [facility] for GI and ESRD support. Patient was recently hospitalized at [facility], admitted 04/02/12, and diagnosed with MSSA bacte remia and ARF requiring HD. Patient had L PICC line, later removed, and permacath placed, an d HD started with Dr Cook vp informatics. ID Dr Ford was also consulted. He is being treated w ith Vancomycin IV on HD days (MWF). After discharge, patient had US for vein mapping and was found to have upper extremity and IJ DVT's as shown in US report below, and patient was sta rted on Coumadin. INR last night at [facility] found to be 3.9 . In ED here the patient has been ordered to receive 2 PRBC's, 1 FFP, and IV protonix.,Jen gee been consulted. Nephrology consulted for evaluation and management of ESRD AND MAINTENANCE HD - UNDER DR ASHFORD AT [place] ACUTE GI BLEEDING, SEVERE Associated with fluid electrolyte acid base imbalances HAPPILY FOR 22 YEARS, LIVES in [place] AT HOME WITH , [employer]; RICKISUNE MPLOYED BEFORE WORKED AT [employer] IN [place] SMOKE NONE ETOH QUIT 15 YEARS AGO, [...] WITH [employer]; KIDSUNEMPLOYED BEFORE WORKED AT [employer] IN [employer] ETOH QUIT 15 YEARS AGODRUGS: USES [...] eport please contact the originating radiologist. : [id number] PATIENT: ENRIQUE POTTER Surgical Pathology Report PATHOLOGIC DIAGNOSIS: KIDNEY, NEEDLE CORE BIOPSY: - SEVERE NODULAR AND GLOBAL GLOMERULOSCLEROSIS CONSISTENT WITH DIABETIC NEPHROPATHY. - HYPERTENSIVE VASCULAR CHANGES. - SEVERE TUBULAR ATROPHY AND INTERSTITIAL FIBROSIS. COMMENT: Dr. Cook has been phoned with this preliminary diagnosis on April 11, 2012. TECHNICAL NOTE: This case was seen and processed at [facility] in [place], [place]. (Report #: [id number]). AMW:clarisa CLINICAL HISTORY: 04/10/2012. (R) renal bx [...] DIABETES AND HYPERTENSIVE NEPHROSCLEROSIS ON HD AT [facility] HD UNIT UNDER DR COOK ALL WORK UP FOR VASCULITIS NEGATIVE LAST ADM C3, C4 levels wnl, hep b/c NR, RF NEG, KAPPA/LAMBDA RATIO WNL, HIV NR RASHID/LAMBDA RATIO 1.89 ANCA, ANTI GBM neg RENAL BX : renal bx 04/10/2012 SHOWED ESRD WITH LOTS OF SCARRING ,He is s/p diagnostic [facility] biopsy which shows advanced fibrotic changes with [...] Notes by Favio Dawkins MD at 05/01/12 4361 Author: Favio Dawkins MD Service: Hospitalist Author Type: Physician Filed: 05/01/12 5719 Date of Service: 05/01/12 0752 Status: Addendum Substation Supervisor: Favio Dawkins MD (Physician) Related Notes: Original Note by Favio Dawkins MD (Physician) filed at 05/01/[address] [facility] Service: Hospitalist Progress Note Hospital Day: LOS: 1 day Post-Op Day: * No surgery date entered * SUBJECTIVE Patient Summary: The patient is a 47 y.o. male who presents with GI bleed, started yes terday, had several bloody bowel movements last night which worsened each time, so he presen gela at [facility] in [place], [place], where he continued to have GI bleeding and wa s transferred to [facility] for GI and ESRD support. Patient was recently hospitalized at [facility], admitted 04/02/12, and diagnosed with MSSA bacte remia and ARF requiring HD. Patient had L PICC line, later removed, and permacath placed, an d HD started with Dr Cook vp informatics. ID Dr Ford was also consulted. He is being treated w ith Vancomycin IV on HD days (MWF). After discharge, patient had US for vein mapping and was found to have upper extremity and IJ DVT's as shown in US report below, and patient was sta rted on Coumadin. INR last night at [facility] found to be 3.9 . In ED [...] hospitlist service will be seeing her ros martinez. More than 35 minutes spent directly face to face with patient for physical examination and talking with her at bedside as well as Computerized Physician Solar Sales Manager. Disposition: Home Code Status: Full Code Favio Dawkins MD 05/01/2012 onversion Transaction, Provider Unknown - 04/30/2012 3:22 PM PSTFormatting of this note might be diff erent from the original. Progress Notes by Jose Rafael Cesar RPH at 04/30/12 1522 Author: Jose Rafael Cesar RPH Service: (none) Author Type: Pharmacist Filed: 04/30/12 152 Date of Service: 04/30/12 152 Status: Signed Substation Supervisor: Jose Rafael Cesar RPH (Pharmacist) Vancomycin note- [...] Date of Service: 04/30/12 1038 Status: Signed Substation Supervisor: Kelley Toussaint RPH (Pharmacist) Renal Dosing Monitoring: [...] PST H&P by Al Coon DO at 04/30/12619 Author: Al Coon DO Service: (none) Author Type: Physician Filed: 04/30/12631 Date of Service: 04/30/12619 Status: Signed Substation Supervisor: Al Coon DO (Physician) [facility] Service: Hospitalist Admission History & Physical Date of Admission: 04/30/2012 Reason for Admission: GI bleed History Obtained From: patient CHIEF COMPLAINT: Blood in stool HISTORY OF PRESENT ILLNESS The patient is a 47 y.o. male who presents with GI bleed, started yesterday, had several bl oody bowel movements last night which worsened each time, so he presented at [facility] in [place], [place], where he continued to have GI bleeding and was transferred to [facility] for GI and ESRD support. Patient was recently hospitalized at [facility], admitted 04/02/12, and diagnosed with MSSA bacte remia and ARF requiring HD. Patient had L PICC line, later removed, and permacath placed, an d HD started with Dr Cook vp informatics. ID Dr Ford was also consulted. He is being treated w ith Vancomycin IV on HD days (MWF). After discharge, patient had US for vein mapping and was found to have upper extremity and IJ DVT's as shown in US report below, and patient was sta rted on Coumadin. INR last night at [facility] found to be 3.9 . In ED [...] capsule by mouth daily. 04/15/12 04/15/13 Negrito s Johnathon Colbert MD levothyroxine (SYNTHROID, LEVOTHROID) 25 MCG tablet Take 1 tablet by mouth every morning be fore breakfast. 04/15/12 04/15/13 Yes Johnathon Colbert MD vancomycin (VANCOCIN) IVPB Administer 750 mg IV with hemodialysis on dialysis days 04/15/12 05/25/12 Yes Elsie Lerner MD warfarin (COUMADIN) 7.5 MG tablet Take 4 mg by mouth daily. Yes Historical Provider ergocalciferol (DRISDOL) 03859 UNITS capsule Take 1 capsule by mouth [...] WITH [employer]; KIDSUNEMPLOYED BEFORE WORKED AT [employer] [place] [employer] COURSESMOKE NONE ETOH QUIT 15 YEARS AGODRUGS: [...] MPV 6.2 04/30/2012 DIFFTYPE AUTOMATED 04/30/[address] [facility] overnight: INR 3.9 PTT 40.7 Na 132 [...] recognition system. The possibility of "sound alike" plant biology professor errors, addition and/or deletions may occur. If [...] at present. Disposition: Inpatient Primary Care Physician: [facility] Al Coon DO 04/30/2012 6:32 AM documented in this enc ounter Consult Notes John Yeung - 04/30/2012 2:28 PM PST Consults by John Yeung MD at 04/30/12 1428 Author: John Yeung MD Service: Gastroenterology Author Type: Physician Filed: 04/30/12 1434 Date of Service: 04/30/121427 Status: Signed Substation Supervisor: John Yeung MD (Physician) Consult Orders: 1. Consult to Gastroenterology [[id number]] ordered by Al Coon DO at 04/30/[address] [facility] Service: Gastroenterology Initial Consult Note [...] worsened each time, so he presented at [facility] in [place], [place], where he continued to have GI bleeding and was transferred to [facility] for GI and ES RD support. Patient was recently hospitalized at [facility], admitted 04/02/12, and diagnosed with MSSA bacteremia and ARF requiring HD. Patient had L PICC line, later removed, and permacath placed, and HD started with Dr Cook vp informatics. ID Dr Ford was also consulted. He is bein g treated with Vancomycin IV on HD days (MWF). After discharge, patient had US for vein tyler ing and was found to have upper extremity and IJ DVT's as shown in US report below, and mahamed ent was started on Coumadin. INR last night at [facility] found to be 3.9 . In ED here th e patient has been ordered to receive 2 PRBC's, 1 FFP. He had EGD and colonoscopy 1 or 2 years back in [place] and unremarkable per his recall . Since [...] 4 mg by mouth daily. ergocalciferol (DRISDOL) 73246 UNITS capsule Take 1 capsule by mouth [...] WITH [employer]; KIDSUNEMPLOYED BEFORE WORKED AT [employer] IN [employer] N[employer] ETOH QUIT 15 YEARS AGODRUGS: USES [...] need double endoscopy and will pre with Golytely and sche dule EGD and colonoscopy in AM. Monitor H/H and transfusion as needed. Repeat INR correct c oagulopathy and lower down INR to < 1.7 tomorrow before the procedure. Code Status: Full Code Primary Care Physician: [facility] Thank you for this consult. JOHN YEUNG MD 04/30/2012 Sean Velásquez - 04/30/20 12 12:41 PM PST Consult* by Sean Reid MD at 04/30/12 1241 Author: Sean Reid MD Service: Nephrology Author Type: Physician Filed: 04/30/12 9625 Date of Service: 04/30/12 1241 Status: Signed Substation Supervisor: Sean Reid MD (Physician) [facility] Service: NEPHROLOGY CONSULT Note Enrique Potter 47 y.o. [id number]/[id number] male [facility] Hospital Day: LOS: 0 days [...] worsened each time, so he presented at [facility] in [place], [place], where he continued to have GI bleeding and was transferred to [facility] for GI and ESRD support. Patient was recently hospitalized at [facility], admitted 04/02/12, and diagnosed with MSSA bacte remia and ARF requiring HD. Patient had L PICC line, later removed, and permacath placed, an d HD started with Dr Cook vp informatics. ID Dr Ford was also consulted. He is being treated w ith Vancomycin IV on HD days (MWF). After discharge, patient had US for vein mapping and was found to have upper extremity and IJ DVT's as shown in US report below, and patient was sta rted on Coumadin. INR last night at [facility] found to be 3.9 . In ED here the patient has been ordered to receive 2 PRBC's, 1 FFP, and IV protonix.,Jen gee been consulted. HISTORY OF PRESENT ILLNESS Nephrology consulted for evaluation and management of ESRD AND MAINTENANCE HD --- UNDER DR ASHFORD AT [place] ACUTE GI BLEEDING, SEVERE Associated with fluid electrolyte acid base imbalances HAPPILY FOR 22 YEARS, LIVES in [place] AT HOME WITH , [employer]; KIDSUNE MPLOYED BEFORE WORKED AT [employer] IN [employer]/ [employer] COURSE SMOKE NONE ETOH QUIT 15 YEARS [...] 4 mg by mouth daily. ergocalciferol (DRISDOL) 09019 UNITS capsule Take 1 capsule by mouth [...] 4 mg by mouth daily. ergocalciferol (DRISDOL) 69463 UNITS capsule Take 1 capsule by mouth [...] POSITIVE ANTIBODY SCREEN NEGATIVE ARM BAND NUMBER [id number] UNIT NUMBER [id number] UNIT NUMBER Value: Testing performed at [facility];[address] [place] [address] BLOOD COMPONENT TYPE Value: LEUKODEPLETED PC,IRR Testing performed at [facility];[address] [place] [address] UNIT DIVISION Value: 00 Testing performed at [facility];[address] [place] [address] STATUS OF UNIT Value: ISSUED Testing performed at [facility];[address] [place] [address] TRANSFUSION STATUS OK TO TRANSFUSE CROSSMATCH RESULT COMPATIBLE UNIT NUMBER [id number] BLOOD COMPONENT TYPE LEUKODEPLETED PC,IRR UNIT DIVISION 00 STATUS OF UNIT ISSUED TRANSFUSION STATUS OK TO TRANSFUSE CROSSMATCH RESULT COMPATIBLE PREPARE PLASMA (BLOOD BANK) Collection Time 04/30/12 6:14 AM Component Value Range UNIT NUMBER [id number] UNIT NUMBER Value: Testing performed at [facility];[address] [place] [address];[place] [address] BLOOD COMPONENT TYPE Value: PLASMA,THAWED Testing performed at [facility];[address] [place] [address];[place] [address] UNIT DIVISION Value: 00 Testing performed at [facility];[address] [place] [address];[place] [address] STATUS OF UNIT Value: ISSUED Testing performed at [facility];[address] [place] [address];[place] [address] TRANSFUSION STATUS OK TO TRANSFUSE ] Lab Results Component Value Date FERRITIN 139 04/02/2012 LABIRON 38 04/02/2012 No results found for this basename: labprot IMAGING: Ultrasound Upper Extremity Dialysis Mapping Bilateral 04/24/2012 ENRIQUE TARIQ US UPPER EXTREMITY DIALYSIS MAPPING BILATERAL 04/24/2012 [...] AND HYPERTENSIVE NEPHROSCLEROSIS ON HD M-W-F AT [facility] HD UNIT UNDER DR COOK ALL WORK [...] ED Notes by Kavita Fitzgerald RN at 04/30/12 9342 Author: Kavita Fitzgerald RN Service: (none) Author Type: Registered Nurse Filed: 04/30/12749 Date of Service: 04/30/12749 Status: Signed Substation Supervisor: Kavita Fitzgerald RN (Registered Nurse) HARDIK HUSSEIN notified by HARDIK Lee that room has not been approved as yet. Kavita Fitzgerald RN 04/30/12749 onver quique Transaction, Provider Unknown - 04/30/2012 7:49 AM PST ED Notes by Kavita Fitzgerald RN at 04/30/12748 Author: Kavita Fitzgerald RN Service: (none) Author Type: Registered Nurse Filed: 04/30/12748 Date of Service: 04/30/12748 Status: Signed Substation Supervisor: Kavita Fitzgerald RN (Registered Nurse) ED RN Lead contacting 4 RP Lead to learn when this pt. May go to the floor. Kavita Fitzgerald RN 04/30/12748 onver quique Transaction, Provider Unknown - 04/30/2012 7:10 AM PST ED Notes by Kavita Fitzgerald RN at 04/30/12709 Author: Kavita Fitzgerald RN Service: (none) Author Type: Registered Nurse Filed: 04/30/12710 Date of Service: 04/30/12709 Status: Signed Substation Supervisor: Kavita Fitzgerald RN (Registered Nurse) RN notified by ED Lead that the pt. May not go to 425 until 729 Kavita Fitzgerald RN 04/30/12710 onver quique Transaction, Provider Unknown - 04/30/2012 6:58 AM PST ED Notes by Kavita Fitzgerald RN at 04/30/12657 Author: Kavita Fitzgerald RN Service: (none) Author Type: Registered Nurse Filed: 04/30/12657 Date of Service: 04/30/12657 Status: Signed Substation Supervisor: Kavita Fitzgerald RN (Registered Nurse) Room 425 approved x 1 hour. Floor not ready for pt. As yet. Blood is infusing. Kavita Fitzgerald RN 04/30/12657 onver quique Transaction, Provider Unknown - 04/30/2012 5:44 AM PST ED Notes by Salima Rodriguez RN at 04/30/12543 Author: Salima Rodriguez RN Service: (none) Author Type: Registered Nurse Filed: 04/30/12544 Date of Service: 04/30/12543 Status: Signed Substation Supervisor: Salima Rodriguez RN (Registered Nurse) Patient up to have BM copious amount of anna blood in toilet, patient states "its like pur e water and I feel weaker and weaker every time I go to the bathroom." Salima Rodriguez RN 04/30/12544 onver quique Transaction, Provider Unknown - 04/30/2012 5:31 AM PST ED Notes by Salima Rodriguez RN at 04/30/12530 Author: Salima Rodriguez RN Service: (none) Author Type: Registered Nurse Filed: 04/30/12530 Date of Service: 04/30/12530 Status: Signed Substation Supervisor: Salima Rodriguez RN (Registered Nurse) Consent form for blood explain and signed by patient Salima Rodriguez RN 04/30/12530 onver quique Transaction, Provider Unknown - 04/30/2012 5:30 AM PST ED Notes by Tucker Garcia RN at 04/30/12529 Author: Tucker Garcia RN Service: (none) Author Type: Registered Nurse Filed: 04/30/12550 Date of Service: 04/30/12529 Status: Signed Substation Supervisor: Tucker Garcia RN (Registered Nurse) CRITICAL LAB VALUES: Hemoglobin 6.4, hematocrit 18.8, read back, Dr. Martínez notified. Tucker Garcia RN 04/30/12 0551 onver quique Transaction, Provider Unknown - 04/30/2012 4:52 AM PST ED Notes by Salima Rodriguez RN at 04/30/12451 Author: Salima Rodriguez RN Service: (none) Author Type: Registered Nurse Filed: 04/30/12451 Date of Service: 04/30/12451 Status: Signed Substation Supervisor: Salima Rodriguez RN (Registered Nurse) Lab at bedside. Salima Rodriguez RN 04/30/12451 oHuan baldwin MD - 04/30/2012 4:46 AM PST ED Provider Notes by Huan Martínez DO at 04/30/12445 Author: Huan Martínez DO Service: (none) Author Type: Physician Filed: 05/01/12 0015 Date of Service: 04/30/12445 Status: Signed Substation Supervisor: Huan Martínez DO (Physician) [facility] Department of Emergency Medicine 04/30/2012 History of Present Illness Patient Identification Enrique Potter is a 47 y.o. male. Patient information was obtained from patient. History/Exam limitations: none. Patient presented to the Emergency Department by: [facility] Chief Complaint Chief Complaint Patient presents with GI Bleeding Transfer from [place] for LGIB. 04:46. Transfer pt from [facility] presents to the ED with GI bleeding [...] and recently diagnose d with ESRD. Pt's vp informatics is Dr. Cook. Dr. Lerner for MSSA. [...] capsule by mouth daily. 04/15/12 04/15/13 Negrito s Johnathon Colbert MD levothyroxine (SYNTHROID, LEVOTHROID) 25 MCG tablet Take 1 tablet by mouth every morning be fore breakfast. 04/15/12 04/15/13 Yes Johnathon Colbert MD vancomycin (VANCOCIN) IVPB Administer 750 mg IV with hemodialysis on dialysis days 04/15/12 05/25/12 Yes Elsie Lerner MD warfarin (COUMADIN) 7.5 MG tablet Take 4 mg by mouth daily. Yes Historical Provider ergocalciferol (DRISDOL) 58327 UNITS capsule Take 1 capsule by mouth [...] WITH [employer]; KIDSUNEMPLOYED BEFORE WORKED AT [employer] [place] [employer] [employer] ETOH QUIT 15 YEARS AGODRUGS: USES [...] ED Department Course 04:33. Transfer pt from [facility] presents to the ED with GI bleeding [...] briefly discussed this differential with the patient, magen d then discussed with them the plan [...] This has dropped since his stay at [place]. Will plan to have a unit of RBC transfused. Type & crossmatch ordered. 05:33. Will admit pt at this time and place call to hospitalist. 05:44. Pt had a BM with anna blood in toilet. 05:48. Discussed pt's case with Dr. Yeung , who would like for the pt to be kept NPO. Mathew rodriguez scope the pt today. 05:50. Discussed pt's case with Dr. Coon, hospitalist, who will see and admit the pt. He w ill consult with the pt's vp informatics, Dr. Cook. Filed Vitals: 04/30/12 2032 04/30/12 2151 04/30/12 2222 04/30/12 2330 BP: 146/69 [...] Date/Time CBC w/auto diff (reflex to manual) [[id number]] (Abnormal) Collected:04/30/12 8776 Order Status:Completed Updated:04/30/12608 Specimen Information:Blood WBC 8.4 [...] has been reviewed and validated by . I yojana post with its contents. Huan Martínez, DO Huan Martínez, 05/01/12 0015 onversion Transac tion, Provider Unknown - 04/30/2012 4:32 AM PSTFormatting of this note might be different f rom the original. ED Notes by Salima Rodriguez RN at 04/30/12 4525 Author: Salima Rodriguez RN Service: (none) Author Type: Registered Nurse Filed: 04/30/12432 Date of Service: 04/30/12431 Status: Signed Substation Supervisor: Salima Rodriguez RN (Registered Nurse) Lab called for blood draw Salima Rodriguez RN 04/30/12432 onver quique Transaction, Provider Unknown - 04/30/2012 4:30 AM PST ED Notes by Salima Rodriguez RN at 04/30/12429 Author: Salima Rodriguez RN Service: (none) Author Type: Registered Nurse Filed: 04/30/12453 Date of Service: 04/30/12429 Status: Signed Substation Supervisor: Salima Rodriguez RN (Registered Nurse) Second IV [...] 04/30/12408 Date of Service: 04/30/12408 Status: Signed Substation Supervisor: Tucker Garcia RN (Registered Nurse) Bed:03
Expected date:
Expected time:
Means of arrival:
Comments:
Pendl eton GIB onver quique Transaction, Provider Unknown - 04/30/2012 3:26 AM PST ED Notes by Tucker Garcia RN at 04/30/12325 Author: Tucker Garcia RN Service: (none) Author Type: Registered Nurse Filed: 04/30/12328 Date of Service: 04/30/12325 Status: Signed Substation Supervisor: Tucker Garcia RN (Registered Nurse) Transfer from [facility] for LGIB. Recent dx ESRD with dialysis. [...] 05/01/121748 Date of Service: 05/01/121746 Status: Signed Substation Supervisor: John Yeung MD (Physician) [facility] Service: Gastroenterology ENDOSCOPY SUITE PROCEDURE [...] 05/01/2012 5:44 PM PST Op Note by John Yeung MD at 05/01/121743 Author: John Yeung MD Service: Gastroenterology Author Type: Physician Filed: 05/01/121746 Date of Service: 05/01/121743 Status: Signed Substation Supervisor: John Yeung MD (Physician) [facility] Service: Gastroenterology ENDOSCOPY SUITE PROCEDURE [...] stage renal disease) on dialysis ([facility]) End stage renal disease | + + | Acute posthemorrhagic anemia | + + | DVT (deep venous thrombosis) ([facility]) Acute venous embolism and thrombosis of | [...]
--- OUTSIDE RECORDS SUMMARY | ~2019-12-30 | XMS | Encounter Summary ---
Demographics + + + | Address | [address] | | | [place] [address] | + + + | Home Phone | | + + + | Preferred Language | Unknown | + + + | Marital Status | Single | + + + | Samaritan Affiliation | Unknown | + + + | Race | or | + + + | Ethnic Group | Not or | + + + Author + + + | Author | [facility] | + + + | Organization | [facility] | + + + | Address | [...] Team Providers + +------+ + | Care Preparation Room Manager Name | Role | Phone | [...] + +--------+ + + + + | New Request | | Cardiology | Diagnoses | [place], | [place] | | | | | Type 2 | Makenna Wiley RN | Health & | | | | | diabetes | [address] [facility] | [facility] | | | | | mellitus | [place] | [address] [facility] | | | | | with ESRD | [address] | [address] | | | | | (end-stage | [place], [place] | ROAD | | | | | renal | [address] | [place], [place] | | | | | disease) | | [address] | | | | | (HCC) | | Phone: | | | | | Procedures | | [phone] | | | | | TRANSTHORACI | | | | | | | [...] + +--------+ + + + + | New Request | | Radiology | Diagnoses | [place], | [place] | | | | | Type 2 | Makenna Wiley RN | Health & | | | | | diabetes | [address] | [employer] | | | | | mellitus | [place] | [address] | | | | | with ESRD | [address] | [address] | | | | | (end-stage | [place], [place] | ROAD | | | | | renal | [address] | [place], [place] | | | | | disease) | | [address] | | | | | (HCC) | | Phone: | | | | | Procedures | | [phone] | | | | | NM | | | | | | | MYOCARDIAL | | | | | | | PERFUSION | [...] + + + Reason for Visit + + + | Reason | Comments | + + + | Pre-Transplant | schedule remainder of eval | | Evaluation | | + + + Encounter Details +--------+ + + + + | Date | Type | Department | Care Team | Description | +--------+ + + + + | 12/22/ | Telephone | Clinical | Makenna Sheldon, | Pre-Transplant | | 2019 | | Transplant Services | RN [address] | Evaluation (schedule | | | | [address] | [address] | remainder of eval) | | | | [address] [place], | [place], [place] | | | | | [place] [address] | [address] | | | | | [phone] | | | +--------+ + + + [...] of this encounter Plan of Treatment + +---------+--------+ + + | Name | Type | Priori | Associated Diagnoses | Order Schedule | | | | ty | | | + +---------+--------+ + + | NM MYOCARDIAL | Imaging | Routin | Type 2 diabetes | Expected: | | PERFUSION (SPECT) | | e | mellitus with ESRD | 12/23/2019, Expires: | | MULTIPLE STUDIES | | [...] 01/22/2021 | | | | | disease) ([facility]) | | + +---------+--------+ + + | TRANSTHORACIC | ECG | Routin | Type 2 diabetes | Ordered: 12/23/2019 | | ECHOCARDIOGRAM, | | e | mellitus with ESRD | | | ADULT | | | (end-stage renal | | | | | | disease) ([facility]) | | + +---------+--------+ + + | 12 LEAD ECG | ECG | Routin | Type 2 diabetes | Expected: 12/23/2019 | | | | e | mellitus with ESRD | | | | | | (end-stage renal | | | | | | disease) ([facility]) | | + +---------+--------+ + + | X-RAY CHEST 2 VIEW | Imaging | Routin | Type 2 diabetes | Expected: 01/27/2020 | | | | e | mellitus with ESRD | (Approximate), | | | | | (end-stage renal | Expires: 01/22/2021 | | | | | disease) ([facility]) | | + +---------+--------+ + + | US ABDOMEN COMPLETE | Imaging | Routin | Type 2 diabetes | Expected: 01/27/2020 | | | | e | mellitus with ESRD | (Approximate), | | | | | (end-stage renal | Expires: 01/22/2021 | | | | | disease) ([facility]) | | + +---------+--------+ + + | X-RAY PELVIS 1 VIEW | Imaging | Routin | Type 2 diabetes | Expected: 01/27/2020 | | | | e | mellitus with ESRD | (Approximate), | | | | | (end-stage renal | Expires: 01/22/2021 | | | | | disease) ([facility]) | | + +---------+--------+ + + [...]
--- OUTSIDE RECORDS SUMMARY | ~2019-12-30 | XMS | Encounter Summary ---
Demographics + + + | Address | [address] | | | [place] [address] | + + + | Home Phone | | + + + | Preferred Language | Unknown | + + + | Marital Status | Single | + + + | Congregational Affiliation | Unknown | + + + | Race | or | + + + | Ethnic Group | Not or | + + + Author + + + | Author | [facility] | + + + | Organization | [facility] [employer] [facility] | + + + | [...] Team Providers + +------+ + | Care Coding Clerks Supervisor Name | Role | Phone | [...] [address] | | | | | | [facility] | | | | | | [place], [place] | | | | | | [address] | | | | | | [phone] | | | +--------+ + + + [...]
--- OUTSIDE RECORDS SUMMARY | ~2019-12-30 | XMS | Encounter Summary ---
Demographics + + + | Address | [address] | | | [place] [address] | + + + | Home Phone | | + + + | Preferred Language | Unknown | + + + | Marital Status | Single | + + + | Temple Affiliation | Unknown | + + + | Race | or | + + + | Ethnic Group | Not or | + + + Author + + + | Author | [facility] [employer] [facility] | + + + | Organization | [facility] [employer] [facility] | + + + | Address [...] Team Providers + +------+ + | Care Tray Line Supervisor Name | Role | Phone | + +------+ + | Berenice Hicks | PCP | | + +------+ + Reason for Visit +--------+ + | Reason | Comments | +--------+ + | Other | Medical records review. | +--------+ + Encounter Details +--------+ + + + + | Date | Type | Department | Care Team | Description | +--------+ + + + + | 12/12/ | Telephone | Kidney Transplant | Taiwo Marin | Other (Medical | | 2019 | | at [facility] [address] | MD [address] | records review.) | | | | [address] | Harpreet Vargas | | | | | Physician's | [place], [place] | | | | | [place], [facility] | [address] | | | | | [place], [place] | [phone] | | | | | [address] | | | | | | [phone] | | | +--------+ + + + [...] + | Diagnosis | + + | Chronic renal failure, stage 5 (HCC) - Primary | + + | Diabetic nephropathy associated with type 2 diabetes mellitus (HCC) | + + | Hypertensive nephropathy, stage 5 chronic kidney disease or end stage renal disease | | (HCC) | + + documented in this encounter"
--- OUTSIDE RECORDS SUMMARY | ~2019-12-30 | XMS | Encounter Summary ---
Demographics + + + | Address | [address] | | | [place] [address] | + + + | Home Phone [...] Team Providers + +------+ + | Care Family Protection Specialist Name | Role | Phone | + +------+ + PCP | Unavailable | + +------+ + Encounter Details +--------+ + + + + | Date | Type | Department | Care Team | Description | +--------+ + + + + | 12/01/ | Hospital | [facility] | Conversion | ESRD (end stage | | 2014 | Encounter | CENTER CV INTRA OP | Transaction, | renal disease) ([facility]) | | | | [address] | Provider Unknown | | | | | [place], [place] | [phone] | | | | | [address] | | | | | | [phone] | Juan Timmons MD | | | | | | [address] | | | | | | [address] [place], [place] | | | | | | [address] | | | | | | | [...] MD Service: Interventional Radiology Author Type: Phys north Filed: 12/01/13 1156 Date of Service: 12/01/13 1120 Status: Addendum Spread Cutter: Melvi Tate MD (Physician) Related Notes: Original [...] Advanced R egistered Nurse Practitioner Filed: 12/01/13 3637 Date of Service: 12/01/13 1017 Status: Addendum Spread Cutter: DARRELL Lopez (Advanced Registered Nurse Practitioner) Related Notes: Original Note by Melvi Tate MD (Physician) filed at 12/01/13 1132 [facility] Service: Interventional Radiology Pre-Procedure History & Physical [...] MD; Location: [facility] MAIN OR; S ervice: Orthopedics; Laterality: Right; After 1530 Catheter removal 07/07/2012 Procedure: DIALYSIS CATHETER REMOVAL; Surgeon: Oskar Meyer MD; Location: [facility] BEDSIDE [place] OCEDURE; Service: General; Laterality: Right; perm cath Dialysis fistula creation 07/07/2012 Procedure: DIALYSIS CATHETER INSERTION; Surgeon: Oskar Meyer MD; Location: [facility] BEDSIDE PROCEDURE; Service: General; Laterality: Left; temporary dialysis catheter Av fistula repair 07/11/2012 Procedure: AV FISTULA GRAFT REPAIR/REVISION; Surgeon: Oskar Meyer MD; Location: [facility] N OR; Service: Vascular; Laterality: Left; Superficialization [...] laboratory findings with Dr. Timmons, the patient's rn imaging. The patient is scheduled for dialysis today [...] tonsil s and uvula Primary Care Physician: [facility] DARRELL LOPEZ 12/01/2013 documented in th is encounter Miscellaneous Notes Op Note - Melvi Tate MD - 12/01/2013 11:56 AM PDTFormatting of this note kel ht be different from the original. Brief Op Note by Melvi Tate MD at 12/01/13 1156 Author: Melvi Tate MD Service: (none) Author Type: Physician Filed: 12/01/13 3581 Date of Service: 12/01/131155 Status: Signed Spread Cutter: Melvi Tate MD (Physician) [facility] Service: Interventional Radiology Brief Op Note Pre-operative Diagnosis: ESRD, Non functioning dialysis catheter Post-operative Diagnosis: Same Procedure(s): Tunneled catheter replacement Surgeon: Pelon Tate MD Anesthesia: Moderate sedation Estimated Blood Loss: Less Than 50 ml Other: Not applicable Indications: See pre-operative history and physical. Findings: Right IJ dialysis catheter accessed. The catheter was exchanged over the wire for a new 23cm [place]am[place]-Path catheter. Flushes and aspirates well. Flushed with [...] removed and a new 23 cm Bard [place]-Path | | | catheter was introduced over [...] removed and a new 23 cm Bard [place]-Path catheter was | | introduced over the [...] removed and a new 23 cm Bard [place]-Path c atheter was introduced over the wire. [...] | | |Procedure performed by Dr. Tate, david for allowing participation [...] | | | | | performed at [facility];[address] | | | | | | [address];[place], [place] | | | | | | [address] | | | | + + + [...] + +---------+ + + External Lab: [facility] (12/01/2013 10:40 AM PDT) + + + + + + | Component | Value | Ref Range | Performed | Pathologist | | | | | At | Signature | + + + + + + | WBC | 6.9Comment: Testing | 3.8 - 11.0 K/uL | EXTERNAL | | | | performed at [facility];[address] | | LAB | | | | [address];[place] | | | | | | [address] | | | | + + + + + + | Non- | 3.82 (L)Comment: Testing | 4.20 - 5.70 | EXTERNAL | | | Red Blood | performed at [facility];[address] | M/uL | LAB | | | Cells | [address];[place] | | | | | Counted | [address] | | | | + + + + + + | Hemoglobin | 12.5 (L)Comment: Testing | 13.2 - 17.0 | EXTERNAL | | | | performed at [facility];[address] | g/dL | LAB | | | | [address];[place] | | | | | | [address] | | | | + + + + + + | Hematocrit, | 36.7 (L)Comment: Testing | 39.0 - 50.0 % | EXTERNAL | | | POC | performed at [facility];[address] | | LAB | | | | [address];[place] | | | | | | [address] | | | | + + + + + + | MCV | 96.0Comment: Testing | 80.0 - 100.0 fl | EXTERNAL | | | | performed at [facility];[address] | | LAB | | | | [address];[place] | | | | | | [address] | | | | + + + + + + | MCH | 32.8Comment: Testing | 27.0 - 34.0 pg | EXTERNAL | | | | performed at [facility];[address] | | LAB | | | | [address];[place] | | | | | | [address] | | | | + + + + + + | MCHC | 34.2Comment: Testing | 32.0 - 35.5 | EXTERNAL | | | | performed at [facility];[address] | g/dL | LAB | | | | [address];[place] | | | | | | [address] | | | | + + + + + + | RDW-CV | 51.6Comment: Testing | 37 - 53 fl | EXTERNAL | | | | performed at [facility];[address] | | LAB | | | | [address];[place] | | | | | | [address] | | | | + + + + + + | Platelet | 188Comment: Testing | 150 - 400 K/uL | EXTERNAL | | | Count | performed at [facility];[address] | | LAB | | | Plasma | [address];[place] | | | | | | [address] | | | | + + + + + + | MPV | 6.6Comment: Testing | fl | EXTERNAL | | | | performed at [facility];[address] | | LAB | | | | [address];[place] | | | | | | [address] | | | | + + + + + + | Differentia | AUTOMATEDComment: | | EXTERNAL | | | l Type | Testing performed at | | LAB | | | | [facility];[address];[place] [address] | | | | + + + + + + | % Segmented | 71.6Comment: Testing | % | EXTERNAL | | | | performed at [facility];[address] | | LAB | | | Neutrophils | [address];[place] | | | | | | [address] | | | | + + + + + + | % | 12.4Comment: Testing | % | EXTERNAL | | | Lymphocytes | performed at [facility];[address] | | LAB | | | | [address];[place] | | | | | | [address] | | | | + + + + + + | % Monocytes | 11.0Comment: Testing | % | EXTERNAL | | | | performed at [facility];[address] | | LAB | | | | [address];[place] | | | | | | [address] | | | | + + + + + + | % | 4.6Comment: Testing | % | EXTERNAL | | | Eosinophils | performed at [facility];[address] | | LAB | | | | [address];[place] | | | | | | [address] | | | | + + + + + + | % Basophils | 0.4Comment: Testing | % | EXTERNAL | | | | performed at [facility];[address] | | LAB | | | | [address];[place] | | | | | | [address] | | | | + + + + + + | Absolute | 4.9Comment: Testing | 1.9 - 7.4 K/uL | EXTERNAL | | | Segmented | performed at [facility];[address] | | LAB | | | Neutrophils | [address];[place] | | | | | | [address] | | | | + + + + + + | Absolute | 0.9 (L)Comment: Testing | 1.0 - 3.9 K/uL | EXTERNAL | | | Lymphocytes | performed at [facility];[address] | | LAB | | | | [address];[place] | | | | | | [address] | | | | + + + + + + | Absolute | 0.8Comment: Testing | 0 - 0.8 K/uL | EXTERNAL | | | Monocytes | performed at [facility];[address] | | LAB | | | | [address];[place] | | | | | | [address] | | | | + + + + + + | Absolute | 0.3Comment: Testing | 0 - 0.5 K/uL | EXTERNAL | | | Eosinophils | performed at [facility];[address] | | LAB | | | | [address];[place] | | | | | | [address] | | | | + + + + + + | Absolute | 0.0Comment: Testing | 0 - 0.1 K/uL | EXTERNAL | | | Basophils | performed at [facility];[address] | | LAB | | | | [address];[place] | | | | | | [address] | | | | + + + [...] EXTERNAL | | | | performed at [facility];[address] | mmol/L | LAB | | | | [address];[place] | | | | | | [address] | | | | + + + + + + | K | 4.2Comment: Testing | 3.5 - 4.9 | EXTERNAL | | | | performed at [facility];[address] | mmol/L | LAB | | | | [address];[place] | | | | | | [address] | | | | + + + + + + | Cl | 105Comment: Testing | 99 - 109 mmol/L | EXTERNAL | | | | performed at [facility];[address] | | LAB | | | | [address];[place] | | | | | | [address] | | | | + + + + + + | CO2 | 13 (LL)Comment: CALLED | 23 - 32 mmol/L | EXTERNAL | | | | RESULTSREAD BACK RESULTS | | LAB | | | | [facility] | | | | | | AT 1113 BY SALTesting | | | | | | performed at [facility];[address] | | | | | | [address];[place] | | | | | | [address] | | | | + + + + + + | Anion Gap | 20Comment: Testing | 5 - 20 mmol/L | EXTERNAL | | | | performed at [facility];[address] | | LAB | | | | [address];[place] | | | | | | [address] | | | | + + + + + + | Glucose, | 93Comment: Testing | 65 - 99 mg/dL | EXTERNAL | | | Fasting | performed at [facility];[address] | | LAB | | | | [address];[place] | | | | | | [address] | | | | + + + + + + | BUN | 53 (H)Comment: Testing | 8 - 25 mg/dL | EXTERNAL | | | | performed at [facility];[address] | | LAB | | | | [address];[place] | | | | | | [address] | | | | + + + + + + | Creatinine | 10.71 (H)Comment: | 0.70 - 1.30 | EXTERNAL | | | | Testing performed at | mg/dL | LAB | | | | [facility];[address];[place] [address] | | | | + + + + + + | BUN/Creatin | 5Comment: Testing | | EXTERNAL | | | ine Ratio | performed at [facility];[address] | | LAB | | | | [address];[place] | | | | | | [address] | | | | + + + + + + | Calcium | 7.4 (L)Comment: Testing | 8.5 - 10.2 | EXTERNAL | | | | performed at [facility];[address] | mg/dL | LAB | | | | [address];[place] | | | | | | [address] | | | | + + + [...] | | | | | | at [facility];[address];[place] [address] | | | | + + + [...] EXTERNAL LAB | | Testing performed at [facility];[address] [place] [address];[place] [address] MRSA PCR | | | NEGATIVE Testing performed at | | | [facility];[address] [place] [address];[place] [address] | | + + + + +---------+ [...]
--- OUTSIDE RECORDS SUMMARY | ~2019-12-30 | XMS | Encounter Summary ---
Demographics + + + | Address | [address] | | | [place] [address] | + + + | Home Phone [...] Providers + +------+ + | Care Machine Pie Maker Name | Role | Phone | [...] 2013 | | [facility] | [address] | Dyspnea; Chronic | | | | EMERGENCY CENTER | [place] [address] | renal failure | | | | [address] | [phone] | | | | | [place], [place] | | | | | | [address] | | | | | | [phone] | | | +--------+ + + + [...] | 0 | 09/14/20 | | | 325 mg tablet | [...] mg by mouth | | 0 | 09/14/20 | | | (MICARDIS) 40 mg | Daily. | | | 12 | | | tablet | | | | | | + + + +---------+ + + documented as of this encounter ED Notes Trevor Kelly MD - 04/04/2014 2:17 PM PDTFormatting of this note might be different fro m the original. ED Provider Notes by Trevor Kelly MD at 04/04/14 4093 Author: Trevor Kelly MD Service: (none) Author Type: Physician Filed: 04/04/14 9656 Date of Service: 04/04/141416 Status: Signed Cutting Machine Tender: Trevor Kelly MD (Physician) [facility] Department of Emergency Medicine History of [...] Meyer, drain removed recently. Has dialysis to [place]. Care prior to arrival consisted of his regular medications. PCP: [facility] Past Medical History Diagnosis Date Hyperlipidemia [...] W/ EGD; Surgeon: John Singleton MD; Location: [facility] ENDOSCOPY; Se rvice: Gastroenterology; Laterality: N/A; Av fistula placement 05/06/2012 Procedure: AV FISTULA; Surgeon: Oskar Meyer MD; Location: [facility] MAIN OR; Service: Vascul ar; Laterality: Left; Left arm possible right Unlisted procedure arthroscopy shoulder rt , ligaments Knee arthroscopy 07/07/2012 Procedure: KNEE - ARTHROSCOPY; Surgeon: Favio Raza MD; Location: [facility] MAIN OR; ervice: Orthopedics; Laterality: Right; After 1530 Catheter removal 07/07/2012 Procedure: DIALYSIS CATHETER REMOVAL; Surgeon: Oskar Meyer MD; Location: [facility] BEDSIDE DC OCEDURE; Service: General; Laterality: Right; perm cath Dialysis fistula creation 07/07/2012 Procedure: DIALYSIS CATHETER INSERTION; Surgeon: Oskar Meyer MD; Location: [facility] BEDSIDE PROCEDURE; Service: General; Laterality: Left; temporary dialysis catheter Av fistula repair 07/11/2012 Procedure: AV FISTULA GRAFT REPAIR/REVISION; Surgeon: Oskar Meyer MD; Location: [facility] N OR; Service: Vascular; Laterality: Left; Superficialization of brachiobasilic fistula and right IJ perm cath insertion Dialysis fistula creation 07/11/2012 Procedure: DIALYSIS CATHETER INSERTION; Surgeon: Oskar Meyer MD; Location: [facility] MAIN OR; Service: Vascular; Laterality: Left; removed dialysis catheter from left neck and placed new on in left chest, attempted in right neck but unable to place Av fistula placement Right 02/09/2014 Procedure: AV FISTULA; Surgeon: Oskar Meyer MD; Location: [facility] MAIN OR; Service: Vascul ar; Laterality: Right; Superficialization of av fistula Right 03/30/2014 Procedure: AV FISTULA - SUPERFICIALIZATION; Surgeon: Oskar Meyer MD; Location: [facility] MAIN OR; Service: Vascular; Laterality: [...] KIDS. CURRENTLY UNEMPLOYED, BEFOR E WORKED AT [employer] IN [place]. Quit METHAMPHETAMINES PER PATIENT after t he [...] Patient will be placed o n the hall monitor to ensure no life threatening arrhythmia develops [...] (*) All other components within normal limits [facility] CARD PANEL W/O TRP (ED ONLY) - [...] Procedure Component Value Units Date/Time Cardiac Panel [[id number]] (Abnormal) Collected: 04/04/14 1431 WBC 5.7 K/uL [...] MMB 3.2 ng/mL CK-MB Index 5.2 BNP [[id number]] (Abnormal) Collected: 04/04/14 1431 Specimen Information: Blood [...] fr om the previous exam. Narrative: ENRIQUE TARIQ XR CHEST 2 VIEW FRONTAL [...] Documented by Trevor Kelly MD (04/04/14 15:16:34, [facility] Emergency Department, Emergency Medicine) This ED [...] EKG Interpretation Rhythm: Sinus Ventricular Rate: 89 DC Interval: Normal ST Segments: Normal Significant Q-waves: None Blocks: None ED Diagnoses Final diagnoses Acute bronchitis Dyspnea Chronic renal failure Disposition: ED Disposition Discharge Condition at discharge: Stable Follow-up Information Follow up With Details Comments Contact Info [facility] [address] [place] [id number] Discharge Medications: Discharge Medication List as of 04/04/2014 3:32 PM START taking these medications Details azithromycin (ZITHROMAX) 250 MG tablet Take 1 tablet by mouth daily. 2 tablets on the first day, then 1 tablet on days 2-5., Starting 04/04/2014, Until Sat04/09/14, Print Procedures Additional Documentation Procedures Trevor Kelly MD 04/04/14 5950 onversion Transacti on, Provider Unknown - 04/04/2014 2:16 PM PDTFormatting of this note might be different fro m the original. ED Notes by Byron Cooper RN at 04/04/14 141 Author: Byron Cooper RN Service: (none) Author Type: Registered Nurse Filed: 04/04/141415 Date of Service: 04/04/141415 Status: Signed Cutting Machine Tender: Byron Cooper RN (Registered Nurse) 2 patient identifiers checked, patient gowned, side rails up x1 ID band placed on patient, call light instructed on and given to patient. Byron Cooper RN 04/04/141415 docume nted in this encounter Plan of [...] CHEST 2 VIEW FRONTAL AND | | [id number]/04/2014 3:10 PM HISTORY:49 years. Male. Shortness of [...] EXTERNAL | | | | performed at [facility];[address] | | LAB | | | | [address] [facility];[place] | | | | | | [address] | | | | + + + + + -+ | Non- | 3.82 (L)Comment: Testing | 4.20 - 5.70 | EXTERNAL | | | Red Blood | performed at [facility];888 | M/uL | LAB | | | Cells | [address];[place] | | | | | Counted | [address] | | | | + + + + + -+ | Hemoglobin | 11.6 (L)Comment: Testing | 13.2 - 17.0 | EXTERNAL | | | | performed at [facility];888 | g/dL | LAB | | | | [address];[place] | | | | | | [address] | | | | + + + + + -+ | Hematocrit, | 34.4 (L)Comment: Testing | 39.0 - 50.0 % | EXTERNAL | | | POC | performed at [facility];[address] | | LAB | | | | [address];[place] | | | | | | [address] | | | | + + + + + -+ | MCV | 90.2Comment: Testing | 80.0 - 100.0 fl | EXTERNAL | | | | performed at [facility];[address] | | LAB | | | | [address];[place] | | | | | | [address] | | | | + + + + + -+ | MCH | 30.3Comment: Testing | 27.0 - 34.0 pg | EXTERNAL | | | | performed at [facility];[address] | | LAB | | | | [address];[place] | | | | | | [address] | | | | + + + + + -+ | MCHC | 33.6Comment: Testing | 32.0 - 35.5 | EXTERNAL | | | | performed at [facility];888 | g/dL | LAB | | | | [address];[place] | | | | | | [address] | | | | + + + + + -+ | RDW-CV | 53.4 (H)Comment: Testing | 37 - 53 fl | EXTERNAL | | | | performed at [facility];[address] | | LAB | | | | [address];[place] | | | | | | [address] | | | | + + + + + -+ | Platelet | 220Comment: Testing | 150 - 400 K/uL | EXTERNAL | | | Count | performed at [facility];[address] | | LAB | | | Plasma | [address];[place] | | | | | | [address] | | | | + + + + + -+ | MPV | 6.3Comment: Testing | fl | EXTERNAL | | | | performed at [facility];[address] | | LAB | | | | [address];[place] | | | | | | [address] | | | | + + + + + -+ | Differentia | AUTOMATEDComment: | | EXTERNAL | | | l Type | Testing performed at | | LAB | | | | [facility];[address];[place] [address] | | | | + + + + + -+ | % Segmented | 61.5Comment: Testing | % | EXTERNAL | | | | performed at [facility];[address] | | LAB | | | Neutrophils | [address];[place] | | | | | | [address] | | | | + + + + + -+ | % | 16.9Comment: Testing | % | EXTERNAL | | | Lymphocytes | performed at [facility];[address] | | LAB | | | | [address];[place] | | | | | | [address] | | | | + + + + + -+ | % Monocytes | 8.0Comment: Testing | % | EXTERNAL | | | | performed at [facility];[address] | | LAB | | | | [address];[place] | | | | | | [address] | | | | + + + + + -+ | % | 12.8Comment: Testing | % | EXTERNAL | | | Eosinophils | performed at [facility];[address] | | LAB | | | | [address];[place] | | | | | | [address] | | | | + + + + + -+ | % Basophils | 0.8Comment: Testing | % | EXTERNAL | | | | performed at [facility];[address] | | LAB | | | | [address];[place] | | | | | | [address] | | | | + + + + + -+ | Absolute | 3.5Comment: Testing | 1.9 - 7.4 K/uL | EXTERNAL | | | Segmented | performed at [facility];[address] | | LAB | | | Neutrophils | [address];[place] | | | | | | [address] | | | | + + + + + -+ | Absolute | 1.0Comment: Testing | 1.0 - 3.9 K/uL | EXTERNAL | | | Lymphocytes | performed at [facility];[address] | | LAB | | | | [address];[place] | | | | | | [address] | | | | + + + + + -+ | Absolute | 0.5Comment: Testing | 0 - 0.8 K/uL | EXTERNAL | | | Monocytes | performed at [facility];[address] | | LAB | | | | [address];[place] | | | | | | [address] | | | | + + + + + -+ | Absolute | 0.7 (H)Comment: Testing | 0 - 0.5 K/uL | EXTERNAL | | | Eosinophils | performed at [facility];[address] | | LAB | | | | [address];[place] | | | | | | [address] | | | | + + + + + -+ | Absolute | 0.0Comment: Testing | 0 - 0.1 K/uL | EXTERNAL | | | Basophils | performed at [facility];[address] | | LAB | | | | [address];[place] | | | | | | [address] | | | | + + + + + -+ | Na | 137Comment: Testing | 135 - 143 | EXTERNAL | | | | performed at [facility];[address] | mmol/L | LAB | | | | [address];[place] | | | | | | [address] | | | | + + + + + -+ | K | 4.8Comment: Testing | 3.5 - 4.9 | EXTERNAL | | | | performed at [facility];888 | mmol/L | LAB | | | | [address];[place] | | | | | | [address] | | | | + + + + + -+ | Cl | 101Comment: Testing | 99 - 109 mmol/L | EXTERNAL | | | | performed at [facility];[address] | | LAB | | | | [address];[place] | | | | | | [address] | | | | + + + + + -+ | CO2 | 28Comment: Testing | 23 - 32 mmol/L | EXTERNAL | | | | performed at [facility];[address] | | LAB | | | | [address];[place] | | | | | | [address] | | | | + + + + + -+ | Anion Gap | 13Comment: Testing | 5 - 20 mmol/L | EXTERNAL | | | | performed at [facility];[address] | | LAB | | | | [address];[place] | | | | | | [address] | | | | + + + + + -+ | Glucose, | 120 (H)Comment: Testing | 65 - 99 mg/dL | EXTERNAL | | | Fasting | performed at [facility];[address] | | LAB | | | | [address];[place] | | | | | | [address] | | | | + + + + + -+ | BUN | 27 (H)Comment: Testing | 8 - 25 mg/dL | EXTERNAL | | | | performed at [facility];[address] | | LAB | | | | [address];[place] | | | | | | [address] | | | | + + + + + -+ | Creatinine | 6.67 (H)Comment: Testing | 0.70 - 1.30 | EXTERNAL | | | | performed at [facility];[address] | mg/dL | LAB | | | | [address];[place] | | | | | | [address] | | | | + + + + + -+ | BUN/Creatin | 4Comment: Testing | | EXTERNAL | | | ine Ratio | performed at [facility];[address] | | LAB | | | | [address];[place] | | | | | | [address] | | | | + + + + + -+ | Calcium | 7.8 (L)Comment: Testing | 8.5 - 10.2 | EXTERNAL | | | | performed at [facility];[address] | mg/dL | LAB | | | | [address];[place] | | | | | | [address] | | | | + + + + + -+ | Protein, | 6.8Comment: Testing | 6.3 - 8.2 g/dL | EXTERNAL | | | Total | performed at [facility];[address] | | LAB | | | | [address];[place] | | | | | | [address] | | | | + + + + + -+ | Albumin | 2.9 (L)Comment: Testing | 3.6 - 5.0 g/dL | EXTERNAL | | | | performed at [facility];[address] | | LAB | | | | [address];[place] | | | | | | [address] | | | | + + + + + -+ | Globulin | 3.8Comment: Testing | 1.3 - 4.9 g/dL | EXTERNAL | | | | performed at [facility];[address] | | LAB | | | | [address];[place] | | | | | | [address] | | | | + + + + + -+ | A/G Ratio | 0.8 (L)Comment: Testing | 1.0 - 2.4 | EXTERNAL | | | | performed at [facility];[address] | | LAB | | | | [address];[place] | | | | | | [address] | | | | + + + + + -+ | Bilirubin | 0.6Comment: Testing | 0.1 - 1.5 mg/dL | EXTERNAL | | | Total | performed at [facility];[address] | | LAB | | | | [address];[place] | | | | | | [address] | | | | + + + + + -+ | ALP, | 140 (H)Comment: Testing | 35 - 115 U/L | EXTERNAL | | | External | performed at [facility];[address] | | LAB | | | | [address];[place] | | | | | | [address] | | | | + + + + + -+ | AST | 39Comment: Testing | 10 - 45 U/L | EXTERNAL | | | | performed at [facility];[address] | | LAB | | | | [address];[place] | | | | | | [address] | | | | + + + + + -+ | ALT | 49Comment: Testing | 10 - 65 U/L | EXTERNAL | | | | performed at [facility];[address] | | LAB | | | | [address];[place] | | | | | | [address] | | | | + + + [...] | | | | | | at [facility];[address];[place] [address] | | | | + + + + + -+ | CK, Total | 62Comment: Testing | 55 - 400 U/L | EXTERNAL | | | | performed at [facility];[address] | | LAB | | | | [address];[place] | | | | | | [address] | | | | + + + [...] | | | | | performed at [facility];[address] | | | | | | [address];[place] | | | | | | [address] | | | | + + + + + -+ | aPTT, | 25Comment: Testing | 23 - 32 seconds | EXTERNAL | | | Patient | performed at [facility];[address] | | LAB | | | | [address];[place] | | | | | | [address] | | | | + + + + + -+ | CK-MB | 3.2Comment: Testing | 0.5 - 3.6 ng/mL | EXTERNAL | | | | performed at [facility];[address] | | LAB | | | | [address];[place] | | | | | | [address] | | | | + + + [...] EXTERNAL | | | | performed at [facility];88 | | LAB | | | | [address];[place] | | | | | | [address] | | | | + + + [...] | | | | | ONLY, -COMPUTER (679), | | | | | | make up editor Neda Resendiz | | | | [...]
--- OUTSIDE RECORDS SUMMARY | ~2019-12-30 | XMS | Encounter Summary ---
Demographics + + + | Address | [address] | | | [place] [address] | + + + | Home Phone | | + + + | Preferred Language | Unknown | + + + | Marital Status | Unknown | + + + | Restoration Affiliation | [id number] | + + + | Race | Unknown | + + + | Ethnic Group | Unknown | + + + Author + + + | Author | [facility] | | | and [place] | + + + | Organization | [facility] | | | [...] Team Providers + +------+ + | Care Administrator Name | Role | Phone | + +------+ + | Andry Deng DO | PCP | | + +------+ + Encounter Details +--------+ + + + + | Date | Type | Department | Care Team | Description | +--------+ + + + + | 03/29/ | Orders Only | [facility] | Conversion | | | 2013 | | INFECTIOUS DISEASE | Transaction, | | | | | [address] | Provider Unknown | | | | | [place], [place] | [phone] | | | | | [address] | (Fax) | | | | | [phone] | | | +--------+ + + + [...]
--- OUTSIDE RECORDS SUMMARY | ~2019-12-30 | XMS | Encounter Summary ---
Demographics + + + | Address | [address] | | | [place] [address] | + + + | Home Phone | | + + + | Preferred Language | Unknown | + + + | Marital Status | Single | + + + | Worship Affiliation | Unknown | + + + | Race | or | + + + | Ethnic Group | Not or | + + + Author + + + | Author | [facility] | + + + | Organization | [facility] | + + + | Address [...] Team Providers + +------+ + | Care Spragger Name | Role | Phone | + [...] Physician's | | | | | | [place], [place] | [address], | | | | | | [address] | [facility] floor | | | | | | Phone: | [place], [place] | | | | | | [phone] | [address] | | | | | | Fax: | Phone: | | | | | | [phone] | [phone] | | | | | | | Fax: | | | | | | | [phone] | + +--------+ + + + + [...] | | | [address], [address] floor | [address] | disease (Primary | | | | [place], [place] | [phone] | Dx); CKD (chronic | | | | [address] | | kidney disease) | | | | [phone] | | requiring chronic | | | | | | dialysis ([facility]); 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 HISTORY OF PRESENT [...] file Gets together: Not on file Attends rastafari service: Not on file Active member of [...] Psychosocial issues. I would defer to the Elastic Assembler Evaluation. Living Donors. Patient was unable to [...] Marin MD [facility]ANSPLANT [facility] [address] [facility] [address] [place] [address] Patient Active Problem List CKD [...] flow. Gout, unspecified [M10.9] Chronic obstructive asthma ([facility]) [J44.9] On inhalers. Denied prior mechanical ventilation. RED CELL ANTIBODIES - allow additional time for crossmatch [T80.92XA] Patient is sensitized against red cell antigen "K". Approximately 90% of units are expect ed to be compatible. Allow at least 2-3 hours for completion of crossmatch. History of polysubstance abuse ([facility]) [F19.10] Amphetamine and other psychostimulant dependence, continuous 04/02/2012 Quit in 2012 Staphylococcus aureus bacteremia [R78.81, B95.61] MRSA infection 01/2018 Treated with Vancomycin x 6 weeks. History of peptic ulcer disease [K27.9] 2011 GIB requiring transfusions H/O arthroscopy of knee [Z98.890] Chronic systolic (congestive) heart failure ([facility]) [I50.22] History of blood transfusion [Z92.89] 2011 DVT (deep venous thrombosis) ([facility]) [I82.409] Per chart review X 3 documented [...]
--- OUTSIDE RECORDS SUMMARY | ~2019-12-30 | XMS | Encounter Summary ---
Demographics + + + | Address | [address] | | | [place] [address] | + + + | Home Phone [...] Providers + +------+ + | Care Cover Cutter Machine Name | Role | Phone | + +------+ + PCP | Unavailable | + +------+ + Encounter Details +--------+ + + + + | Date | Type | Department | Care Team | Description | +--------+ + + + + | 10/05/ | Hospital | [facility] | Conversion | End stage renal | | 2016 | Encounter | [facility] | Transaction, | disease (HCC) | | | | [address] | Provider Unknown | | | | | [place], [place] | [phone] | | | | | [address] | | | | | | [phone] | Uriel Lee, | | | | | | [address] | | | | | | [place], [place] | | | | | | [address] | | | | | | | [...] Progress Notes Conversion Transaction, Provider Unknown - 10/06/2015 2:32 PM PDTFormatting of this note m ight be different from the original. Nurse Progress Note by Randi Verduzco RN at 10/06/151431 Author: Randi Verduzco RN Service: (none) Author Type: Registered Nurse Filed: 10/06/151432 Date of Service: 10/06/151431 Status: Signed Picture Copyist: Randi Verduzco RN (Registered Nurse) Procedure complete. Pt tolerated well. vss . Discharge instructions given to pt and . Pt will be discharged home ambulatory with family. docume nted in this encounter H&P Notes Bhanu Lee MD, MD - 10/06/2015 2:36 PM PDTFormatting of this note might be diffe rent from the original. H&P by Uriel Lee MD at 10/06/151435 Author: Uriel Lee MD Service: Interventional Radiology Author Type: Physician Filed: 10/06/159 Date of Service: 10/06/151435 Status: Signed Picture Copyist: Uriel Lee MD (Physician) [facility] Service: Interventional Radiology Admission History & Physical Date of Admission: 10/06/2015 History Obtained From: patient CHIEF COMPLAINT: Poor flow in the fistula HISTORY OF PRESENT ILLNESS The patient is a 50 y.o. male with significant past medical history of ESRD who presents w ith Pain and poor flow in the right arm fistula. REVIEW OF SYSTEMS Review of Systems - Negative except as noted above. Past Medical History Diagnosis Date Hyperlipidemia Hypertension Thyroid disease Anemia Abdominal pain, right upper quadrant 04/13/2012 Dialysis patient (FORM[facility]LY [facility]) GI bleed 04/30/2012 from coumadin Walker as ambulation aid Gout Asthma pt not using inhaler any more, no symptoms DVT (deep venous thrombosis) ([facility]) x3 AV fistula ([facility]) lt arm Knee pain, right 07/06/2012 MSSA (methicillin susceptible Staphylococcus aureus) infection 04/11/2012 Anemia due to blood loss 04/30/2012 Amphetamine and other psychostimulant dependence, continuous ([facility]) 04/02/2012 Hyperphosphatemia 05/24/2012 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 Rash and nonspecific skin eruption 04/03/2012 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 Neuromuscular disorder ([facility]) neuropathy Hyperkalemia 11/09/2013 Chronic obstructive asthma with exacerbation ([facility]) 10/27/2013 SOB (shortness of breath) 10/27/2013 Diabetes mellitus type I ([facility]) Past Surgical History Procedure Laterality Date Colonoscopy [...] - ARTHROSCOPY; Surgeon: Favio Raza MD; Location: [facility] MAIN OR; S ervice: Orthopedics; Laterality: Right; After 1530 Catheter removal 07/07/2012 Procedure: DIALYSIS CATHETER REMOVAL; Surgeon: Oskar Meyer MD; Location: [facility] BEDSIDE SD OCEDURE; Service: General; Laterality: Right; [...] - SUPERFICIALIZATION; Surgeon: Oskar Meyer MD; [facility] [...] last night 10/28/13 10/28/14 Karri Huff MD montelukast (SINGULAIR) [...] KIDS. CURRENTLY UNEMPLOYED, BEFOR E WORKED AT [employer] [place] [employer]. Quit METHAMPHETAMINES PER PATIENT after t he ARF in mar 2012. FATHER HAS COLON CANCER, HEART DISEASE, MOTHER 15 YEARS AGO. NO FH KIDNEY PROB LEMS. PHYSICAL EXAM Vital Signs: BP 124/61 mmHg | Pulse 92 | Temp(Src) 98.3 F (36.8 C) (Skin) | Resp 14 | Ht 1.702 m (5' 7") | Wt 76.204 kg (168 lb) | BMI 26.31 kg/m2 | SpO2 97% General appearance: alert, appears stated age and [...] normal, atraumatic, no cyanosis or edema and RIght arm AV fistula with pulsation Neurologic: Grossly normal DATA CBC: No results for input(s): WBC, RBC, HGB, HCT, MCV, MCH, MCHC, RDW, PLT, MPV, DIFFTYPE in the last 168 hours. PT/INR: No results for input(s): PROTIME, INR in the last 168 hours. PTT: No results for input(s): APTT in the last 168 hours. PROBLEM LIST Active Problems: * No active hospital problems. * ASSESSMENT & PLAN 50 yr old male with ESRD on HD with poor flow and pain in the right arm AV fistula. He is a candidate for fistulagram and intervention. We discussed the procedure of fistulag maame and intervention, risks ( Bleeding, infection, contrast allergy, injury to the vein need ing stenting) and other options for managing poor flow in the fistula. He is a understood th e discussion and expressed a wish to proceed. Moderate Sedation Presedation Assessment completed. ASA Classification: ASA 3: Patient with a severe systemic disease Mallampati Classification: I: Full visibility of tonsils, uvula and soft palate Disposition: [facility] Code Status: Prior Primary Care Physician: ROSA LEE MD 10/06/2015 2:37 PM documented i n this encounter Plan [...] distal subclavian vein with the good collaterals. [id number], | | | [id number], [id number] Electronically signed by Uriel Lee MD on | | | 10/06/2015 3:32 PM | | + + + + + + | Narrative | Performed At | + + + | [facility] 10/06/2015 2:06 PM HISTORY: [...] | | | needle and exchanged for 4-Pakistani micropuncture sheath. Initial | | | fistula pressure was obtained and fistulogram obtained from the | | | right cubital fossa to the right atrium. 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 4-Pakistani micropuncture sheath was exchanged for | | | 6-Pakistani short sheath over a 0.035, angled Glidewire. [...] using combination of 4 | | | Pakistani angled glide catheter and 0.035 angled Glidewire [...] Conversion - 02/05/2019 5:14 PM PDT [facility] | | FISTULAGRAM10/06/2015 2:06 PM [...] | | micropuncture needle and exchanged for 4-Pakistani micropuncture sheath. Initial fistula | | pressure was obtained and fistulogram obtained from the right cubital fossa to the | | right atrium. Given the focal, more than 70 percent stenosis in the mid right cephalic | | vein and occluded distal right subclavian vein, I decided to perform angioplasty of the | | venous lesions. 4-Pakistani micropuncture sheath was exchanged for 6-Pakistani short sheath | | over a 0.035, [...] Then, | | using combination of 4 Pakistani angled glide catheter and 0.035 angled Glidewire [...] vein with the good | | collaterals. [id number], 75640, 78051 Electronically signed by Uriel Lee MD on | | 10/06/2015 3:32 PM | | | |[id number], 04760, 53664 | | | | | + + [...] distal subclavian vein with the good collaterals. [id number], | | | 07720, 25120 Electronically signed by Uriel Lee MD on | | | 10/06/2015 3:32 PM | | + + + + + + | Narrative | Performed At | + + + | [facility] 10/06/2015 2:06 PM HISTORY: [...] | | | needle and exchanged for 4-Pakistani micropuncture sheath. Initial | | | fistula pressure was obtained and fistulogram obtained from the | | | right cubital fossa to the right atrium. 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 4-Pakistani micropuncture sheath was exchanged for | | | 6-Pakistani short sheath over a 0.035, angled Glidewire. [...] using combination of 4 | | | Pakistani angled glide catheter and 0.035 angled Glidewire [...] Conversion - 02/05/2019 5:14 PM PDT [facility] | | FISTULAGRAM10/06/2015 2:06 PM [...] | | micropuncture needle and exchanged for 4-Pakistani micropuncture sheath. Initial fistula | | pressure was obtained and fistulogram obtained from the right cubital fossa to the | | right atrium. Given the focal, more than 70 percent stenosis in the mid right cephalic | | vein and occluded distal right subclavian vein, I decided to perform angioplasty of the | | venous lesions. 4-Pakistani micropuncture sheath was exchanged for 6-Pakistani short sheath | | over a 0.035, [...] Then, | | using combination of 4 Pakistani angled glide catheter and 0.035 angled Glidewire [...] vein with the good | | collaterals. 25953, 43939, 80571 Electronically signed by Uriel Lee MD on | | 10/06/2015 3:32 PM | | | |[id number], 95254, 79118 | | | | | + + documented in this encounter Visit Diagnoses + + | Diagnosis | + + | End stage renal disease (HCC) End stage renal disease | + + documented in this encounter
--- OUTSIDE RECORDS SUMMARY | ~2019-12-30 | XMS | Encounter Summary ---
Demographics + + + | Address | [address] | | | [place] [address] | + + + | Home Phone | | + + + | Preferred Language | Unknown | + + + | Marital Status | Unknown | + + + | Yarsanism Affiliation [...] Providers + +------+ + | Care Superintendent [employer] Name | Role | Phone | + +------+ + PCP | Unavailable | + +------+ + Encounter Details +--------+ + + + + | Date | Type | Department | Care Team | Description | +--------+ + + + + | 10/03/ | Hospital | [facility] | Arlin Galdino Saavedra | Adult failure to | | 2012 - | Encounter | [facility] | MD [address] | thrive; PUD (peptic | | | | CARE FLOOR [address] | [address] | ulcer disease); | | 10/15/ | | [address] | [place] [address] | Secondary | | 2012 | | [place], [place] | [phone] | hyperparathyroidism | | | | [id number] | | (of renal origin) | | | | [phone] | | ([facility]); Vitamin d | | | | | | deficiency; C. 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 ESRD (end-stage | | | | | | renal disease) | | | | | | ([facility]); HTN | | | | | | (hypertension); | | | | | | Bacteremia; | | | | | | Staphylococcus | | | | | | aureus bacteremia | | | | | | with sepsis ([facility]); | | | | | | Fever; | | | | | | Hypoalbuminemia; End | | | | | | stage renal failure | | | | | | on dialysis ([facility]); | | | | | | Obesity (BMI | | | | | | 30-39.9); | | | | | | Hyponatremia; | | | | | | Malnutrition of | | | | | | moderate degree | | | | | | ([facility]); Weakness | | | | | | generalized; | | | | | | Incomplete RBBB; | | | | | | Anemia of chronic | | | | | | kidney failure; ESRD | | | | | | (end stage renal | | | | | | disease) on dialysis | | | | | | ([facility]); Gout; | | | | | | [...] 10/15/12905 Date of Service: 10/15/12901 Status: Signed Intermediate Frame Tender: Vikram Chandra MD (Physician) [facility] Service: Hospitalist Physician Discharge Summary Pt: Carol Potter AGE/SEX: 47 y.o. male ROOM: [facility]605-1 PCP: [facility] : 1965 Admit date: 10/03/2012 Discharge [...] 45 %. 3. No vegetation visualized. 4. Etts-gf-kmznpisx mitral regurgitation is present. 5. There is [...] by Dr. Meyer. This was created using lummi vein and does not contain any graft [...] Behavior is normal. Judgment normal. LABS: Lab 10/15/12 0430 10/14/12 0420 10/13/12 0430 WBC 6.4 6.5 5.6 HGB 10.3* 10.0* 8.0* HCT 31.5* 30.7* 25.1* PLT 416* 406* 335 NEUTOPHILPCT 70.6 70.5 67.3 MONOPCT 10.7 12.4* 12.7* Lab 10/14/12 0420 10/13/12 0430 10/12/12 0433 10/11/12 0425 NA 135 131* 133* -- K [...] Lab 10/10/12 0250 PHART -- PO2ART -- [id number] -- O6QPAVGN -- BEART 4* Lab 10/10/12 1331 10/10/12 [...] times daily as needed . ergocalciferol (DRISDOL) 95525 UNITS capsule Take 1 capsule by mouth [...] Notes by Ruslan Amezquita PTA at 10/15/12 1224 Author: Ruslan Amezquita PTA Service: (none) Author Type: Driller'S Assistant Filed: 10/15/124 Date of Service: 10/15/121223 Status: Signed Intermediate Frame Tender: Ruslan Amezquita PTA (Driller'S Assistant) 10/15/12 1224 PT Last Visit PT Received On 10/15/12 PT Therapy Visit Not available Requires PT Follow Up Unavailable Other Comments Comments receiving HD onver quique Transaction, Provider Unknown - 10/15/2012 11:53 AM PDT Progress Notes by Kelley Toussaint RPH at 10/15/12 1153 Author: Kelley Toussaint RPH Service: (none) Author Type: Pharmacist Filed: 10/15/12 115 Date of Service: 10/15/121152 Status: Signed Intermediate Frame Tender: Kelley Toussaint RPH (Pharmacist) Clinical Pharmacy Note: [...] Date of Service: 10/15/12 1034 Status: Signed Intermediate Frame Tender: Sean Solorzano MD (Physician) [facility] Service: NEPHROLOGY Progress Note Carol Potter 47 y.o. [id number] male [facility] Hospital Day: LOS: 12 days SUBJECTIVE [...] --ORTHO MRSA BACTEREMIA VANCO DURING HD AT [facility] NEEDS TO BE FAXED FROM DR SHAWN Cabrera IMRTAYLOR WITH FLAGYL DOING OK TOLERATING HD WITH [...] W/ EGD; Surgeon: John Singleton MD; Location: [facility] ENDOSCOPY; Se rvice: Gastroenterology; Laterality: N/A; Av fistula placement 05/06/2012 Procedure: AV FISTULA; Surgeon: Oskar Meyer MD; Location: [facility] MAIN OR; Service: Vascul ar; Laterality: Left; Left arm possible right Unlisted procedure arthroscopy shoulder rt , ligaments Knee arthroscopy 07/07/2012 Procedure: KNEE - ARTHROSCOPY; Surgeon: Favio Raza MD; Location: [facility] MAIN OR; ervice: Orthopedics; Laterality: Right; After 1530 Catheter removal 07/07/2012 Procedure: DIALYSIS CATHETER REMOVAL; Surgeon: Oskar Meyer MD; Location: [facility] BEDSIDE OR OCEDURE; Service: General; Laterality: Right; perm cath Dialysis fistula creation 07/07/2012 Procedure: DIALYSIS CATHETER INSERTION; Surgeon: Oskar Meyer MD; Location: [facility] BEDSIDE PROCEDURE; Service: General; Laterality: Left; temporary dialysis catheter Av fistula repair 07/11/2012 Procedure: AV FISTULA GRAFT REPAIR/REVISION; Surgeon: Oskar Meyer MD; Location: [facility] OR; Service: Vascular; Laterality: Left; Superficialization of brachiobasilic fistula and right IJ perm cath insertion Dialysis fistula creation 07/11/2012 Procedure: DIALYSIS CATHETER INSERTION; Surgeon: Oskar Meyer MD; Location: [facility] OR; Service: Vascular; Laterality: [...] BIOLOGICAL; 2 STEP KIDSUNEMPLOYED BEFORE WORKED AT [employer] IN [place]/ [place] NONE ETOH QUIT 15 YEARS AGODRUGS: quit [...] vancomycin 750 mg Intravenous Once vitamin B npelguj-T-amxrz acid 1 tablet Oral Daily Continuous Infusions [...] Results Component Value Date PTHINTACT 255* 04/02/2012 [id number] <12* 04/02/2012 Lab Results Component Value Date [...] Name: CAROL POTTER Date of : 1965 [facility] Physician: Beny Valencia MD INDICATIONS endocarditis CONCLUSIONS 1. The left ventricle i s moderately dilated. 2. Overall left ventricular systolic function is mild-moderately impai red with, an EF between 40 - 45 %. 3. No vegetation visualized. 4. Ukwk-ll-nbtuucro mitral r egurgitation is present. 5. There [...] Aortic Valve: No vegetation visualized. Mitral Valve: Eagd-sl-lfbcjdll mitral regurgitation is present. Tricuspid Valve: The tricuspid valve appears structurally normal. Trace/Mild (physiologic) regurgitation. Aorta: Ascending aorta, aortic arch and descending thoracic aorta are of normal caliber with no significant atherosclerotic disease. Mass: No m ass visualized. Thrombus: No clot visualized. Pericardium: There is a trivial pericardial ef fusion present. MEASUREMENTS Junior Estimator: RADHA Authenticated by: Beny Rousseau Report Date/Time: [...] who is dialyzed Saturday and Saturday at [place] dialysis unit via Left upper extremity pr [...] binders for now. He would benefit from lead data entry operator evaluation. And MEGACE Staphylococcus aureus bacteremia [...] to be faxed to HD UNIT BY [employer] OFFICER D/W EDUCATED PT ON FLUID RESTRICTION 1.5 L/24 hrs CM:Discharge planning update: RADHA called to follow-up if [facility] had an available bed. Dominick Willoughby spoke with ibrahima Merino male beds available at this time. Pt continued to have [facility] ement at [facility] when medically stable for discharge. Time spend [...] Author: VANDANA Alvarado Service: (none) Author Type: Emergency Telecommunications Dispatcher Filed: 10/15/12 9144 Date of Service: 10/15/12 1018 Status: Signed Intermediate Frame Tender: VANDANA Alvarado (Emergency Telecommunications Dispatcher) Pt is aware that he is dc'ing to [facility] in [place]. Spoke w/ she is not able to [...] Notes by Sean Solorzano MD at 10/14/12 1344 Author: Sean Solorzano MD Service: Nephrology Author Type: Physician Filed: 10/14/12 1532 Date of Service: 10/14/12 1349 Status: Signed Intermediate Frame Tender: Sean Solorzano MD (Physician) [facility] Service: NEPHROLOGY Progress Note Carol Potter 47 y.o. [id number] male [facility] Hospital Day: LOS: 11 days SUBJECTIVE [...] --ORTHO MRSA BACTEREMIA VANCO DURING HD AT [facility] NEEDS TO BE FAXED FROM [...] W/ EGD; Surgeon: John Singleton MD; Location: [facility] ENDOSCOPY; Se rvice: Gastroenterology; Laterality: N/A; Av fistula placement 05/06/2012 Procedure: AV FISTULA; Surgeon: Oskar Meyer MD; Location: [facility] MAIN OR; Service: Vascul ar; Laterality: Left; Left arm possible right Unlisted procedure arthroscopy shoulder rt , ligaments Knee arthroscopy 07/07/2012 Procedure: KNEE - ARTHROSCOPY; Surgeon: Favio Raza MD; Location: [facility] MA[facility] OR; S ervice: Orthopedics; Laterality: Right; After 1530 Catheter removal 07/07/2012 Procedure: DIALYSIS CATHETER REMOVAL; Surgeon: Oskar Meyer MD; Location: [facility] BEDSIDE OR OCEDURE; Service: General; Laterality: Right; perm cath Dialysis fistula creation 07/07/2012 Procedure: DIALYSIS CATHETER INSERTION; Surgeon: Oskar Meyer MD; Location: [facility] BEDSIDE PROCEDURE; Service: General; Laterality: Left; temporary dialysis catheter Av fistula repair 07/11/2012 Procedure: AV FISTULA GRAFT REPAIR/REVISION; Surgeon: Oskar Meyer MD; [facility]; Service: Vascular; Laterality: Left; Superficialization of brachiobasilic fistula and right IJ perm cath insertion Dialysis fistula creation 07/11/2012 Procedure: DIALYSIS CATHETER INSERTION; Surgeon: Oskar Meyer MD; Location: [facility] MA[facility] OR; Service: Vascular; Laterality: Left; [...] BIOLOGICAL; 2 STEP KIDSUNEMPLOYED BEFORE WORKED AT [employer] IN [place] NONE ETOH QUIT 15 YEARS AGODRUGS: quit [...] vancomycin 750 mg Intravenous Once vitamin B ydxzqou-F-nnres acid 1 tablet Oral Daily Continuous Infusions [...] Results Component Value Date PTHINTACT 255* 04/02/2012 [id number] <12* 04/02/2012 Lab Results Component Value Date [...] Name: CAROL POTTER Date of : 1965 [facility] Physician: Beny Valencia MD INDICATIONS endocarditis CONCLUSIONS 1. The left ventricle i s moderately dilated. 2. Overall left ventricular systolic function is mild-moderately impai red with, an EF between 40 - 45 %. 3. No vegetation visualized. 4. Kega-hd-vzvvcxtr mitral r egurgitation is present. 5. There [...] Aortic Valve: No vegetation visualized. Mitral Valve: Nzhd-on-hpleituy mitral regurgitation is present. Tricuspid Valve: The tricuspid valve appears structurally normal. Trace/Mild (physiologic) regurgitation. Aorta: Ascending aorta, aortic arch and descending thoracic aorta are of normal caliber with no significant atherosclerotic disease. Mass: No m ass visualized. Thrombus: No clot visualized. Pericardium: There is a trivial pericardial ef fusion present. MEASUREMENTS Junior Estimator: RADHA Authenticated by: Beny Rousseau Report Date/Time: [...] who is dialyzed Saturday and Saturday at [place] dialysis unit via Left upper extremity pr [...] binders for now. He would benefit from lead data entry operator evaluation. Staphylococcus aureus bacteremia with sepsis: [...] to be faxed to HD UNIT BY [employer] OFFICER D/W EDUCATED PT ON FLUID RESTRICTION 1.5 L/24 hrs Time spend over 25 minutes of time spent evaluating the patient, reviewing the data, formul ating a plan and discussion with patient and hospitalist team, more than half of the time sp ent in counseling and coordination of care. CM:Discharge planning update: CM called to follow-up if [facility] had an available bed. Dominick Willoughby spoke with ibrahima Merino male beds available at this time. Pt continued to have SNF plac ement at [facility] in [place] for when medically stable for discharge. SEAN SOLORZANO MD 10/14/2012 onversio n Transaction, Provider Unknown - 10/14/2012 1:29 PM PDTFormatting of this note might be di fferent from the original. Progress Notes by Macho Abraham MS at 10/14/12 3007 Author: Macho Abraham MS Service: (none) Author Type: Emergency Telecommunications Dispatcher Filed: 10/14/12 8932 Date of Service: 10/14/12 0992 Status: Addendum Intermediate Frame Tender: Macho Abraham MS (Emergency Telecommunications Dispatcher) Related Notes: Original Note by Macho Abraham MS (Emergency Telecommunications Dispatcher) filed at 10/14/12 5556 CM called [facility] ([place] [phone]) to update on discharge status and faxed updated ID i nformation (vanco with HD) Cm also called Ophelia Tong the [facility] RN for marty [phone] and let her know that transportation (they coordinate dialysis [facility] in [place]) will be needed. CM also spoke with pt's spouse who is in the room w ith pt and encouraged her to call her daughter to make arrangements for her to get back to [facility] on Saturday if pt is discharged. RADHA spoke with RN who reports that pt may need ambula nce transportation. Awaiting d/c orders. onver quique Castillo, Provider Unknown - 10/14/2012 10:51 AM PDT Progress Notes by Ruslan Amezquita PTA at 10/14/12 1051 Author: Ruslan Amezquita PTA Service: (none) Author Type: Driller'S Assistant Filed: 10/14/12 1051 Date of Service: 10/14/12 1051 Status: Signed Intermediate Frame Tender: Ruslan Amezquita PTA (Driller'S Assistant) 10/14/12 1050 PT Last Visit PT Received [...] Notes by Trevor Escobar DO at 10/14/12 0945 Author: Trevor Escobar DO Service: (none) Author Type: Physician Filed: 10/14/12 0937 Date of Service: 10/14/12919 Status: Signed Intermediate Frame Tender: Trevor Escobar DO (Physician) [facility] Service: Infectious Disease Progress Note Hospital [...] vancomycin 750 mg Intravenous Once vitamin B kriewhf-W-iynag acid 1 tablet Oral Daily Continuous Infusions [...] Progress Notes by Vikram Chandra MD at 10/14/12842 Author: Vikram Chandra MD Service: Hospitalist Author Type: Physician Filed: 10/14/1252 Date of Service: 10/14/12842 Status: Addendum Intermediate Frame Tender: Vikram Chandra MD (Physician) Related Notes: Original Note by Vikram Chandra MD (Physician) filed at 10/14/12 0851 [facility] Service: Hospitalist Progress Note Pt: Carol Potter AGE/SEX: 47 y.o. male ROOM: [facility]605-1 : 1965 PCP: [facility] ADMIT DATE: 10/03/2012 TODAY'S DATE: 10/14/2012 [...] by Dr. Meyer. This was created using lummi vein and does not contain any graft [...] vancomycin 750 mg Intravenous Once vitamin B snhyvix-L-dzoxb acid 1 tablet Oral Daily Continuous Infusions [...] MONOPCT 12.4* 12.7* 13.3* Lab 10/14/12 0420 10/13/1242910/12/123 10/11/12 0425 NA 135 131* 133* -- K [...] Lab 10/10/12 0250 PHART -- PO2ART -- YUS1MTJ -- L0HSEPTV -- BEART 4* Lab 10/10/12 1331 10/10/12 [...] Dr. Palacio and he had [facility] radiologist. Imelda g to him there is not enough [...] RPH Service: (none) Author Type: Pharmacist Filed: 10/14/1235 Date of Service: 10/14/1235 Status: Signed Intermediate Frame Tender: Kristina Zendejas RPH (Pharmacist) Vancomycin day 7--Saturday no dialysis, no dose onver quique Transaction, Provider Unknown - 10/13/2012 12:26 PM PDT Progress Notes by Ruslna Amezquita PTA at 10/13/12 1226 Author: Ruslan Amezquita PTA Service: (none) Author Type: Driller'S Assistant Filed: 10/13/126 Date of Service: 10/13/121225 Status: Signed Intermediate Frame Tender: Ruslan Amezquita PTA (Driller'S Assistant) 10/13/12 1226 PT Last Visit PT Received On 10/13/12 PT Therapy Visit Not available Requires PT Follow Up Unavailable Other Comments Comments receiving HD onver quique Transaction, Provider Unknown - 10/13/2012 11:31 AM PDT Progress Notes by Kristina Zendejas RPH at 10/13/12 1131 Author: Kristina Zendejas RPH Service: (none) Author Type: Pharmacist Filed: 10/13/12 113 Date of Service: 10/13/12 113 Status: Signed Intermediate Frame Tender: Kristina Zendejas RPH (Pharmacist) Vancomycin Day 6 Dialysis [facility] does for today. Kristina Zendejas OR Sean Willis - 10/13/2012 10:58 AM PDTFormatting of this note might be different from the origi nal. Progress Notes by Sean Solorzano MD at 10/13/12 1058 Author: Sean Solorzano MD Service: Nephrology Author Type: Physician Filed: 10/13/12 1840 Date of Service: 10/13/121057 Status: Signed Intermediate Frame Tender: Sean Solorzano MD (Physician) [facility] Service: NEPHROLOGY Progress Note Carol Potter 47 y.o. [id number] male [place] Hospital Day: LOS: 10 days SUBJECTIVE Patient [...] W/ EGD; Surgeon: John Singleton MD; Location: [facility] ENDOSCOPY; Se rvice: Gastroenterology; Laterality: N/A; Av fistula placement 05/06/2012 Procedure: AV FISTULA; Surgeon: Oskar Meyer MD; Location: [facility] OR; Service: Vascul ar; Laterality: Left; Left arm possible right Unlisted procedure arthroscopy shoulder rt , ligaments Knee arthroscopy 07/07/2012 Procedure: KNEE - ARTHROSCOPY; Surgeon: Favio Raza MD; Location: [facility] MAIN OR; ervice: Orthopedics; Laterality: Right; After 1530 Catheter removal 07/07/2012 Procedure: DIALYSIS CATHETER REMOVAL; Surgeon: Oskar Meyer MD; Location: [facility] BEDSIDE OR OCEDURE; Service: General; Laterality: Right; perm cath Dialysis fistula creation 07/07/2012 Procedure: DIALYSIS CATHETER INSERTION; Surgeon: Oskar Meyer MD; Location: [facility] BEDSIDE PROCEDURE; Service: General; Laterality: Left; temporary dialysis catheter Av fistula repair 07/11/2012 Procedure: AV FISTULA GRAFT REPAIR/REVISION; Surgeon: Oskar Meyer MD; Location: [facility] OR; Service: Vascular; Laterality: Left; Superficialization of brachiobasilic fistula and right IJ perm cath insertion Dialysis fistula creation 07/11/2012 Procedure: DIALYSIS CATHETER INSERTION; Surgeon: Oskar Meyer MD; Location: [facility] OR; Service: Vascular; Laterality: [...] BIOLOGICAL; 2 STEP KIDSUNEMPLOYED BEFORE WORKED AT [employer] [place] NONE ETOH QUIT 15 YEARS AGODRUGS: quit [...] vancomycin 750 mg Intravenous Once vitamin B yjvsrck-W-vmpnu acid 1 tablet Oral Daily Continuous Infusions [...] Results Component Value Date PTHINTACT 255* 04/02/2012 [id number] <12* 04/02/2012 Lab Results Component Value Date [...] Name: CAROL POTTER Date of : 1965 [facility] Physician: Beny Valencia MD INDICATIONS endocarditis CONCLUSIONS 1. The left ventricle i s moderately dilated. 2. Overall left ventricular systolic function is mild-moderately impai red with, an EF between 40 - 45 %. 3. No vegetation visualized. 4. Nbks-qo-moythsco mitral r egurgitation is present. 5. There [...] Aortic Valve: No vegetation visualized. Mitral Valve: Xkap-ye-zkbosxyz mitral regurgitation is present. Tricuspid Valve: The tricuspid valve appears structurally normal. Trace/Mild (physiologic) regurgitation. Aorta: Ascending aorta, aortic arch and descending thoracic aorta are of normal caliber with no significant atherosclerotic disease. Mass: No m ass visualized. Thrombus: No clot visualized. Pericardium: There is a trivial pericardial ef fusion present. MEASUREMENTS Junior Estimator: RADHA Authenticated by: Beny Rousseau Report Date/Time: [...] who is dialyzed Saturday and Saturday at [place] dialysis unit via Left upper extremity pr [...] binders for now. He would benefit from lead data entry operator evaluation. Staphylococcus aureus bacteremia with sepsis: [...] planning update: CM called to follow-up if [facility] had an available bed. Dominick Willoughby spoke with ibrahima Merino male beds available at this time. Pt continued to have SNF plac ement at [facility] for when medically stable for discharge. SEAN SOLORZANO MD 10/13/2012 ontony n Transaction, Provider Unknown - 10/13/2012 9:24 AM PDTFormatting of this note might be di fferent from the original. Progress Notes by Macho Abraham MS at 10/13/12923 Author: Macho Abraham MS Service: (none) Author Type: Emergency Telecommunications Dispatcher Filed: 10/13/12929 Date of Service: 10/13/12923 Status: Addendum Intermediate Frame Tender: Macho Abraham MS (Emergency Telecommunications Dispatcher) Related Notes: Original Note by Macho Abraham MS (Emergency Telecommunications Dispatcher) filed at 10/13/12924 Discharge planning update: CM called to follow-up if [facility] had an available bed. CM s poke with ishaan Merinoate male beds available at this time. Pt continued to have SNF placeme nt at [facility] for when medically stable for discharge. obelenTrevor wilson - 10/13/2012 9:20 AM PDTFormatting of this note might be different from the zbigniewa l. Progress Notes by Trevor Escobar DO at 10/13/12919 Author: Trevor Escobar DO Service: (none) Author Type: Physician Filed: 10/13/1225 Date of Service: 10/13/12919 Status: Signed Intermediate Frame Tender: Trevor Escobar DO (Physician) [facility] Service: Infectious Disease Progress Note Hospital [...] vancomycin 750 mg Intravenous Once vitamin B xxvjgls-N-jbbyd acid 1 tablet Oral Daily Continuous Infusions [...] Status: Full Code TREVOR ESCOBAR DO 10/13/2012 Lluvia, Vikram Alarcon MD - 2012 9:11 AM PDT Progress Notes by Vikram Chandra MD at 10/13/12910 Author: Vikram Chandra MD Service: Hospitalist Author Type: Physician Filed: 10/13/12918 Date of Service: 10/13/12910 Status: Addendum Intermediate Frame Tender: Vikram Chandra MD (Physician) Related Notes: Original Note by Vikram Chandra MD (Physician) filed at 10/13/12917 [facility] Service: Hospitalist Progress Note Pt: Carol Potter AGE/SEX: 47 y.o. male ROOM: [address] [place] [address] : 1965 PCP: [facility] ADMIT DATE: 10/03/2012 TODAY'S DATE: 10/13/2012 [...] by Dr. Meyer. This was created using lummi vein and does not contain any graft [...] vancomycin 750 mg Intravenous Once vitamin B mzfzgcn-P-dxcsv acid 1 tablet Oral Daily Continuous Infusions [...] Behavior is normal. Judgment normal. LABS: Lab 10/13/1242910/12/1243210/11/12424 WBC 5.6 5.3 6.2 HGB 8.0* 7.6* 7.9* HCT 25.1* 23.8* 24.6* PLT 335 352 351 NEUTOPHILPCT 67.3 69.9 79.4* MONOPCT 12.7* 13.3* 10.7 Lab 10/13/1242910/12/1243210/11/12424 NA 131* 133* 135 K 3.8 3.5 3.4* CL 95* 96* 97* CO2 28 28 29 BUN 35* 28* 18 CREATININE 5.67* 4.81* 3.87* CALCIUM -- -- -- PROT 6.6 6.2* 6.6 BILITOT 0.3 0.3 0.3 ALKPHOS -- -- -- ALT 12 10 12 AST 17 17 36 GLUCOSE -- -- -- Phosphorus: Lab Results Component Value Date PHOS 3.3 10/13/2012 Lab 10/13/1242910/12/1243210/11/12424 MG 2.1 2.0 1.9 Lab 10/10/12 0250 PHART -- PO2ART -- CBQ1HWC -- Q2KSWAVP -- BEART 4* Lab 10/10/12 1331 10/10/12 [...] Notes by Sean Solorzano MD at 10/12/12 1333 Author: Sean Solorzano MD Service: Nephrology Author Type: Physician Filed: 10/12/12 4942 Date of Service: 10/12/121332 Status: Signed Intermediate Frame Tender: Sean Solorzano MD (Physician) [facility] Service: NEPHROLOGY Progress Note Carol Potter 47 y.o. [id number] male [facility] Hospital Day: LOS: 9 days SUBJECTIVE [...] W/ EGD; Surgeon: John Singleton MD; Location: [facility] ENDOSCOPY; Se rvice: Gastroenterology; Laterality: N/A; Av fistula placement 05/06/2012 Procedure: AV FISTULA; Surgeon: Oskar Meyer MD; Location: [facility] MAIN OR; Service: Vascul ar; Laterality: Left; Left arm possible right Unlisted procedure arthroscopy shoulder rt , ligaments Knee arthroscopy 07/07/2012 Procedure: KNEE - ARTHROSCOPY; Surgeon: Favio Raza MD; Location: [facility] OR; S ervice: Orthopedics; Laterality: Right; After 1530 Catheter removal 07/07/2012 Procedure: DIALYSIS CATHETER REMOVAL; Surgeon: Oskar Meyer MD; Location: [facility] BEDSIDE OR OCEDURE; Service: General; Laterality: Right; perm cath Dialysis fistula creation 07/07/2012 Procedure: DIALYSIS CATHETER INSERTION; Surgeon: Oskar Meyer MD; Location: [facility] BEDSIDE PROCEDURE; Service: General; Laterality: Left; temporary dialysis catheter Av fistula repair 07/11/2012 Procedure: AV FISTULA GRAFT REPAIR/REVISION; Surgeon: Oskar Meyer MD; Location: [facility] OR; Service: Vascular; Laterality: Left; Superficialization of brachiobasilic fistula and right IJ perm cath insertion Dialysis fistula creation 07/11/2012 Procedure: DIALYSIS CATHETER INSERTION; Surgeon: Oskar Meyer MD; Location: [facility] MAIN OR; Service: Vascular; Laterality: Left; [...] BIOLOGICAL; 2 STEP KIDSUNEMPLOYED BEFORE WORKED AT [employer] IN [place] NONE ETOH QUIT 15 YEARS AGODRUGS: quit [...] mg Intravenous See Admin Instructions vitamin B wgeqwlp-R-yyftu acid 1 tablet Oral Daily Continuous Infusions [...] Results Component Value Date PTHINTACT 255* 04/02/2012 [id number] <12* 04/02/2012 Lab Results Component Value Date [...] Mri Hip Left Without Contrast 10/12/2012 CAROL TARIQ MRI HIP LEFT WO CONTRAST 10/12/2012 10:22 [...] Name: CAROL POTTER Date of : 1965 [facility] Physician: Beny Valencia MD INDICATIONS endocarditis CONCLUSIONS 1. The left ventricle i s moderately dilated. 2. Overall left ventricular systolic function is mild-moderately impai red with, an EF between 40 - 45 %. 3. No vegetation visualized. 4. Rzgn-hs-ktjhwjgi mitral r egurgitation is present. 5. There [...] Aortic Valve: No vegetation visualized. Mitral Valve: Wfhh-zk-nlgvowkw mitral regurgitation is present. Tricuspid Valve: The tricuspid valve appears structurally normal. Trace/Mild (physiologic) regurgitation. Aorta: Ascending aorta, aortic arch and descending thoracic aorta are of normal caliber with no significant atherosclerotic disease. Mass: No m ass visualized. Thrombus: No clot visualized. Pericardium: There is a trivial pericardial ef fusion present. MEASUREMENTS Junior Estimator: RADHA Authenticated by: Beny Rousseau Report Date/Time: [...] who is dialyzed Saturday and Saturday at [facility] unit via Left upper extremity pr [...] binders for now. He would benefit from lead data entry operator evaluation. Staphylococcus aureus bacteremia with sepsis: [...] of care. SEAN SOLORZANO MD 10/12/2012 Lluvia, As if MD Agnes - 10/12/2012 10:36 AM PDTFormatting of this note might be different from the origin al. Progress Notes by Vikram Chandra MD at 10/12/12 1036 Author: Vikram Chandra MD Service: Hospitalist Author Type: Physician Filed: 10/12/12 1207 Date of Service: 10/12/12 1036 Status: Addendum Intermediate Frame Tender: Vikram Chandra MD (Physician) Related Notes: Original Note by Vikram Chandra MD (Physician) filed at 10/12/12 1146 [facility] Service: Hospitalist Progress Note Pt: Carol Potter AGE/SEX: 47 y.o. male ROOM: [address] [place] [address] : 1965 PCP: [facility] ADMIT DATE: 10/03/2012 TODAY'S DATE: 10/12/2012 [...] by Dr. Meyer. This was created using lummi vein and does not contain any graft [...] mg Intravenous See Admin Instructions vitamin B zwochaj-H-fvzil acid 1 tablet Oral Daily Continuous Infusions [...] Behavior is normal. Judgment normal. LABS: Lab 10/12/1243210/11/1242410/10/12442 WBC 5.3 6.2 8.5 HGB 7.6* 7.9* 8.2* HCT 23.8* 24.6* 25.6* PLT 352 351 368 NEUTOPHILPCT 69.9 79.4* 90.3* MONOPCT 13.3* 10.7 6.0 Lab 10/12/12 0433 10/11/1242410/10/12442 NA 133* 135 132* K 3.5 3.4* [...] Date PHOS 2.6 10/12/2012 Lab 10/12/12 0433 10/11/1242410/10/12442 MG 2.0 1.9 2.0 Lab 10/10/12 0250 PHART -- PO2ART -- GEY7YWT -- Q2XPPTEP -- BEART 4* Lab 10/10/12 1331 10/10/12 [...] recommended US guided Needle asp iration. I CRISELDA Siegel and he will talk to Dr. Palacio [...] MD, FACP 10/12/2012 10:36 AM Trevor Lockett 2012 9:30 AM PDT Progress Notes by Trevor Escobar DO at 10/12/12929 Author: Trevor Escobar DO Service: (none) Author Type: Physician Filed: 10/12/12939 Date of Service: 10/12/12929 Status: Signed Intermediate Frame Tender: Trevor Escobar DO (Physician) [facility] Service: Infectious Disease Progress Note Hospital [...] mg Intravenous See Admin Instructions vitamin B ypdpfsq-M-irvbz acid 1 tablet Oral Daily DISCONTD: amlodipine [...] 10/12/12622 Date of Service: 10/12/12622 Status: Signed Intermediate Frame Tender: Yasmin Alberts RPH (Pharmacist) Day 5 Vanco tx No HD today-no Vanco dose to be admin YASMIN ALBERTS 10/12/2012 6:23 AM Sean Willis - 10/11/2012 2:58 PM PDTFormatting of this note might be different from the origi nal. Progress Notes by Sean Solorzano MD at 10/11/121457 Author: Sean Solorzano MD Service: Nephrology Author Type: Physician Filed: 10/11/12 1511 Date of Service: 10/11/121457 Status: Signed Intermediate Frame Tender: Sean Solorzano MD (Physician) [facility] Service: NEPHROLOGY Progress Note Carol Potter 47 y.o. [id number] male [facility] Hospital Day: LOS: 8 days SUBJECTIVE [...] W/ EGD; Surgeon: John Singleton MD; Location: [facility] ENDOSCOPY; Se rvice: Gastroenterology; Laterality: N/A; Av fistula placement 05/06/2012 Procedure: AV FISTULA; Surgeon: Oskar Meyer MD; Location: [facility] OR; Service: Vascul ar; Laterality: Left; Left arm possible right Unlisted procedure arthroscopy shoulder rt , ligaments Knee arthroscopy 07/07/2012 Procedure: KNEE - ARTHROSCOPY; Surgeon: Favio Raza MD; Location: [facility] MAIN OR; ervice: Orthopedics; Laterality: Right; After 1530 Catheter removal 07/07/2012 Procedure: DIALYSIS CATHETER REMOVAL; Surgeon: Oskar Meyer MD; Location: [facility] BEDSIDE OR OCEDURE; Service: General; Laterality: Right; perm cath Dialysis fistula creation 07/07/2012 Procedure: DIALYSIS CATHETER INSERTION; Surgeon: Oskar Meyer MD; Location: [facility] BEDSIDE PROCEDURE; Service: General; Laterality: Left; temporary dialysis catheter Av fistula repair 07/11/2012 Procedure: AV FISTULA GRAFT REPAIR/REVISION; Surgeon: Oskar Meyer MD; Location: [facility] OR; Service: Vascular; Laterality: Left; Superficialization of brachiobasilic fistula and right IJ perm cath insertion Dialysis fistula creation 07/11/2012 Procedure: DIALYSIS CATHETER INSERTION; Surgeon: Oskar Meyer MD; Location: [facility] MAIN OR; Service: Vascular; Laterality: Left; [...] BIOLOGICAL; 2 STEP KIDSUNEMPLOYED BEFORE WORKED AT [employer] [place] NONE ETOH QUIT 15 YEARS AGODRUGS: quit [...] vancomycin 750 mg Intravenous Once vitamin B mcnymki-C-unzyw acid 1 tablet Oral Daily DISCONTD: amlodipine [...] Results Component Value Date PTHINTACT 255* 04/02/2012 [id number] <12* 04/02/2012 Lab Results Component Value Date [...] Name: CAROL POTTER Date of : 1965 [facility] Physician: Beny Valencia MD INDICATIONS endocarditis CONCLUSIONS 1. The left ventricle i s moderately dilated. 2. Overall left ventricular systolic function is mild-moderately impai red with, an EF between 40 - 45 %. 3. No vegetation visualized. 4. Klpn-ak-cqskpjfy mitral r egurgitation is present. 5. There [...] Aortic Valve: No vegetation visualized. Mitral Valve: Sewn-rh-eurvinlo mitral regurgitation is present. Tricuspid Valve: The tricuspid valve appears structurally normal. Trace/Mild (physiologic) regurgitation. Aorta: Ascending aorta, aortic arch and descending thoracic aorta are of normal caliber with no significant atherosclerotic disease. Mass: No m ass visualized. Thrombus: No clot visualized. Pericardium: There is a trivial pericardial ef fusion present. MEASUREMENTS Junior Estimator: RADHA Authenticated by: Beny Rousseau Report Date/Time: [...] who is dialyzed Saturday and Saturday at [facility] via Left upper extremity pr [...] binders for now. He would benefit from lead data entry operator evaluation. Staphylococcus aureus bacteremia with sepsis: [...] Notes by Yasmin Alberts RPH at 10/11/12 5663 Author: Yasmin Alberts RPH Service: (none) Author Type: Pharmacist Filed: 10/11/129 Date of Service: 10/11/121108 Status: Signed Intermediate Frame Tender: Yasmin Alberts RPH (Pharmacist) Day 4 Vanco tx No dose Vanco today-no HD YASMIN ALBERTS 10/11/2012 11:09 AM OTrevor Escobar - 10/11/2012 9:25 AM PDTFormatting of this note might be different from the origina l. Progress Notes by Trevor Escobar DO at 10/11/12924 Author: Trevor Escobar DO Service: (none) Author Type: Physician Filed: 10/11/12 1005 Date of Service: 10/11/12924 Status: Signed Intermediate Frame Tender: Trevor Escobar DO (Physician) [facility] Service: Infectious Disease Progress Note Hospital [...] vancomycin 750 mg Intravenous Once vitamin B inzotwc-T-zpfac acid 1 tablet Oral Daily DISCONTD: meropenem [...] Status: Full Code TREVOR ESCOBAR DO 10/11/2012 ikram Chandra MD - 2012 9:21 AM PDT Progress Notes by Vikram Chandra MD at 10/11/12920 Author: Vikram Chandra MD Service: Hospitalist Author Type: Physician Filed: 10/11/1238 Date of Service: 10/11/12920 Status: Signed Intermediate Frame Tender: Vikram Chandra MD (Physician) [facility] Service: Hospitalist Progress Note Pt: Carol Potter AGE/SEX: 47 y.o. male ROOM: [address] [place] [address] : 1965 PCP: [facility] ADMIT DATE: 10/03/2012 TODAY'S DATE: 10/11/2012 [...] by Dr. Meyer. This was created using lummi vein and does not contain any graft [...] vancomycin 750 mg Intravenous Once vitamin B tmobqvb-W-vjvuk acid 1 tablet Oral Daily DISCONTD: meropenem [...] - - - 78 16 - - 10/10/12 213 - - - 79 16 94 % [...] normal. Judgment normal. LABS: Lab 10/11/12 0425 10/10/12 0443 10/10/12 0120 WBC 6.2 8.5 7.6 HGB 7.9* 8.2* 9.2* HCT 24.6* 25.6* 29.0* PLT 351 368 423* NEUTOPHILPCT 79.4* 90.3* 85.8* MONOPCT 10.7 6.0 6.7 Lab 10/11/12 0425 10/10/12 0443 10/10/12 0120 NA 135 132* 134* [...] Lab 10/10/12 0250 PHART -- PO2ART -- UWQ3DZY -- A5QBKEAS -- BEART 4* Lab 10/10/12 1331 10/10/12 [...] Service: Nephrology Author Type: Physician Filed: 10/10/12 5779 Date of Service: 10/10/122302 Status: Signed Intermediate Frame Tender: Sean Solorzano MD (Physician) [facility] Service: NEPHROLOGY Progress Note Carol Potter 47 y.o. [id number] male [facility] Hospital Day: LOS: 7 days SUBJECTIVE [...] W/ EGD; Surgeon: John Singleton MD; Location: [facility] ENDOSCOPY; Se rvice: Gastroenterology; Laterality: N/A; Av fistula placement 05/06/2012 Procedure: AV FISTULA; Surgeon: Oskar Meyer MD; Location: [facility] MAIN OR; Service: Vascul ar; Laterality: Left; Left arm possible right Unlisted procedure arthroscopy shoulder rt , ligaments Knee arthroscopy 07/07/2012 Procedure: KNEE - ARTHROSCOPY; Surgeon: Favio Raza MD; Location: [facility] MAIN OR; chidi: Orthopedics; Laterality: Right; After 1530 Catheter removal 07/07/2012 Procedure: DIALYSIS CATHETER REMOVAL; Surgeon: Oskar Meyer MD; Location: [facility] BEDSIDE OR OCEDURE; Service: General; Laterality: Right; perm cath Dialysis fistula creation 07/07/2012 Procedure: DIALYSIS CATHETER INSERTION; Surgeon: Oskar Meyer MD; Location: [facility] BEDSIDE PROCEDURE; Service: General; Laterality: Left; temporary dialysis catheter Av fistula repair 07/11/2012 Procedure: AV FISTULA GRAFT REPAIR/REVISION; Surgeon: Oskar Meyer MD; Location: [facility] OR; Service: Vascular; Laterality: Left; Superficialization of brachiobasilic fistula and right IJ perm cath insertion Dialysis fistula creation 07/11/2012 Procedure: DIALYSIS CATHETER INSERTION; Surgeon: Oskar Meyer MD; Location: [facility] MAIN OR; Service: Vascular; Laterality: Left; [...] BIOLOGICAL; 2 STEP KIDSUNEMPLOYED BEFORE WORKED AT [employer] [place] NONE ETOH QUIT 15 YEARS AGODRUGS: quit [...] vancomycin 750 mg Intravenous Once vitamin B hybralb-P-urkky acid 1 tablet Oral Daily DISCONTD: meropenem [...] Results Component Value Date PTHINTACT 255* 04/02/2012 [id number] <12* 04/02/2012 Lab Results Component Value Date [...] 07/07/12. Echo Dany 10/09/2012 Patient Name: CAROL POTTRE Date of : [address] [place] [address] Physician: Beny Valencia MD INDICATIONS endocarditis CONCLUSIONS 1. The left ventricle i s moderately dilated. 2. Overall left ventricular systolic function is mild-moderately impai red with, an EF between 40 - 45 %. 3. No vegetation visualized. 4. Whsp-ql-xwtlxcod mitral r egurgitation is present. 5. There [...] Aortic Valve: No vegetation visualized. Mitral Valve: Ylql-tr-hbqpgbaj mitral regurgitation is present. Tricuspid Valve: The tricuspid valve appears structurally normal. Trace/Mild (physiologic) regurgitation. Aorta: Ascending aorta, aortic arch and descending thoracic aorta are of normal caliber with no significant atherosclerotic disease. Mass: No m ass visualized. Thrombus: No clot visualized. Pericardium: There is a trivial pericardial ef fusion present. MEASUREMENTS Junior Estimator: RADHA Authenticated by: Beny Rousseau Report Date/Time: [...] who is dialyzed Saturday and Saturday at [facility] via Left upper extremity pr [...] binders for now. He would benefit from lead data entry operator evaluation. C diff colitis: He does [...] coordination of care. SEAN SOLORZANO MD 10/10/2012 OTon, Khanh Maya MD - 10/10/2012 4:44 PM PDTFormatting of this note might be different from the o riginal. Progress Notes by Khanh Rangel MD at 10/10/12 6105 Author: Khanh Rangel MD Service: (none) Author Type: Physician Filed: 10/10/12 7929 Date of Service: 10/10/12 5145 Status: Signed Intermediate Frame Tender: Khanh Rangel MD (Physician) [facility] Service: Hospitalist Progress Note Hospital Day: [...] vancomycin 750 mg Intravenous Once vitamin B oryjvsy-W-erdxn acid 1 tablet Oral Daily DISCONTD: meropenem [...] bruises, rashes, lesions, or ulcers. DATA Lab 10/10/12 0443 10/10/12 0120 10/09/12 0530 WBC 8.5 7.6 8.3 RBC 3.06* 3.52* 2.91* HCT 25.6* 29.0* 24.8* MCV 83.7 82.2 85.0 MCH 26.9* 26.2* 27.4 MCHC 32.2 31.8* 32.3 RDW 51.6 52.1 53.4* PLT 368 423* 376 MPV 7.4 7.0 6.8 DIFFTYPE AUTOMATED AUTOMATED AUTOMATED Lab 10/10/12 0443 10/10/12 0120 10/09/12 0530 K 4.0 3.9 [...] 1.1 Xr Abdomen 1 View 10/06/2012 CAROL TARIQ XR ABDOMEN 1 VIEW 10/06/2012 11:43 AM [...] Xr Cervical Spine 3 View 10/04/2012 CAROL TARIQ XR CERVICAL SPINE LIMITED 2-3 VIEW 10/03/2012 [...] 3:03AM Xr Chest 1 View 10/08/2012 CAROL TARIQ [...] Name: CAROL POTTER Date of : 1965 [facility] Physician: Beny Valencia MD INDICATIONS endocarditis CONCLUSIONS 1. The left ventricle i s moderately dilated. 2. Overall left ventricular systolic function is mild-moderately impai red with, an EF between 40 - 45 %. 3. No vegetation visualized. 4. Hbtx-xl-btldfftv mitral r egurgitation is present. 5. There [...] Aortic Valve: No vegetation visualized. Mitral Valve: Gjrm-co-plffftnm mitral regurgitation is present. Tricuspid Valve: The tricuspid valve appears structurally normal. Trace/Mild (physiologic) regurgitation. Aorta: Ascending aorta, aortic arch and descending thoracic aorta are of normal caliber with no significant atherosclerotic disease. Mass: No m ass visualized. Thrombus: No clot visualized. Pericardium: There is a trivial pericardial ef fusion present. MEASUREMENTS Junior Estimator: RADHA Authenticated by: Beny Rousseau Report Date/Time: [...] Now resolved. Pt is pending discharge to [facility]. Debility; will need e xtensive physical therapy. Moderate protein malnutrition;cont nutritional support. Disposition: inpatient Code Status: Full Code Khanh Rangel MD 10/10/2012 onversio n Transaction, Provider Unknown - 10/10/2012 3:32 PM PDTFormatting of this note might be di fferent from the original. Progress Notes by Tiana Fontana RD at 10/10/12 6149 Author: Tiana Fontana RD Service: (none) Author Type: Registered Dietitian Filed: 10/10/12 4685 Date of Service: 10/10/121531 Status: Signed Intermediate Frame Tender: Tiana Fontana RD (Registered Dietitimagen) JAVI assessment [...] Progress Notes by Makenna Calvo at 10/10/12 134 Author: Makenna Calvo Service: (none) Author Type: Emergency Telecommunications Dispatcher Filed: 10/10/122 Date of Service: 10/10/121341 Status: Signed Intermediate Frame Tender: Makenna Calvo (Emergency Telecommunications Dispatcher) RADHA met with Ophelia Gordon the critical access hospital health RN for [facility] [phone]... She stated t hat it would be best if CM could try to get pt into [facility] as pt will have to have his dialysis done in [facility] and if pt goes to [facility] it will be hard for arranging transportation... RADHA also spoke with pts spouse Shyanne [phone], Shyanne has a so n at home [...] is to attempt to get pt into [facility] in [facility] again closer to D/C ( they w ere full prior attempt). So Overton - 10/10/2012 11:03 AM PDTFormatting of this note might be different from the origin al. Progress Notes by So Nunez PT at 10/10/12 110 Author: So Nunez PT Service: (none) Author Type: Physical Therapist Filed: 10/10/12 110 Date of Service: 10/10/121102 Status: Signed Intermediate Frame Tender: So Nunez PT (Physical Therapist) 10/10/12 110 PT Last Visit PT Received On 10/10/12 PT Therapy Visit Not available Requires PT Follow Up Unavailable Other Comments Comments Pt having HD at this time. Will check back as PT schedules permit. onversion TransNik van mundo Eugene - 10/10/2012 4:45 AM PDT Progress Notes by Carmina Lara RPH at 10/10/12444 Author: Carmina Lara RPH Service: (none) Author Type: Pharmacist Filed: 10/10/12444 Date of Service: 10/10/12444 Status: Signed Intermediate Frame Tender: Carmina Lara RPH (Pharmacist) Clinical Pharmacy Note: Renal Monitoring Carol Potter 47 y.o. male Height: 170.2 cm Weight: 67.4 kg Patient is on hemodialysis - Usual schedule: Mon-Wed-Fri. Pharmacy dosing for renal function per Dr. [...] Significant Event by Bhargav Mercado MD at 10/10/12 0129 Author: Bhargav Mercado MD Service: Hospitalist Author Type: Physician Filed: 10/10/12 2211 Date of Service: 10/10/12 0129 Status: Signed Intermediate Frame Tender: Bhargav Mercado MD (Physician) Rapid assessment team [...] Progress Notes by Marivel Ocampo at 10/09/12 6905 Author: Marivel Ocampo Service: (none) Author Type: Registered Nurse Filed: 10/09/121735 Date of Service: 10/09/121734 Status: Signed Intermediate Frame Tender: Marivel Ocampo In pts room to assist [...] 10/09/121715 Date of Service: 10/09/121707 Status: Signed Intermediate Frame Tender: Khanh Rangel MD (Physician) [facility] Service: Hospitalist Progress Note Hospital Day: [...] mg Intravenous See Admin Instructions vitamin B ixnzvto-S-hxxjh acid 1 tablet Oral Daily DISCONTD: clindamycin [...] findings Xr Chest 1 View 10/08/2012 CAROL POTTER [...] from the original. Progress Notes by Ebenezer Johns, PT at 10/09/12 1451 Author: Ebenezer Johns PT Service: (none) Author Type: Physical Therapist Filed: 10/09/12 1451 Date of Service: 10/09/12 145 Status: Signed Intermediate Frame Tender: Ebenezer Johns PT (Physical Therapist) 10/09/12 1055 PT Last Visit PT Received On 10/09/12 [...] d while RN cleaned pt by rolling fwpe-jy-mfjq. Cognition Overall Cognitive Status WFL Orientation Level [...] Service: Nephrology Author Type: Physician Filed: 10/09/12 8213 Date of Service: 10/09/12 1151 Status: Signed Intermediate Frame Tender: Cosmo Soria MD (Physician) PCP is [facility] LOS: 6 days Carol Potter [...] mg Intravenous See Admin Instructions vitamin B nmotaeq-P-lzkbq acid 1 tablet Oral Daily DISCONTD: clindamycin [...] who is dialyzed Saturday and Saturday at [facility] via Left upper extremity br achio cephalic fistula (last HD was Saturday10/03/12). He is now admitted with C. Difficile colitis and failure to thrive. Hospitalization has been complicated by staph aureus bacteremia. I will continue maintenance HD. Records from [facility] Have been reviewed.I s poke [...] binders for now. He would benefit from lead data entry operator evaluation. Lab Results Component Value Date [...] Ruslan Amezquita PTA Service: (none) Author Type: Driller'S Assistant Filed: 10/08/12 1225 Date of Service: 10/08/125 Status: Signed Intermediate Frame Tender: Ruslan Amezquita PTA (Driller'S Assistant) 10/08/12 1224 PT Last Visit PT Received On 10/08/12 PT Therapy Visit Not available Requires PT Follow Up Unavailable Other Comments Comments pt receiving HD onver quique Transaction, Provider Unknown - 10/08/2012 11:23 AM PDT Progress Notes by Yusra Vallejo RN at 10/08/12 1123 Author: Yusra Vallejo RN Service: (none) Author Type: Registered Nurse Filed: 10/08/12 1126 Date of Service: 10/08/121122 Status: Signed Intermediate Frame Tender: Yusra Vallejo RN (Registered Nurse) Received call from lab, 2/2 positive blood cultures gram neg cocci in anaerobic bottles. Re sults given to Dr Rangel who is here on floor rounding. hela Brown RPH - 10/08/2012 10:42 AM PDTFormatting of this note might be different from t barbie original. Progress Notes by Chela Varela RPH at 10/08/12 1042 Author: Chela Varela RPH Service: (none) Author Type: Pharmacist Filed: 10/08/12 1042 Date of Service: 10/08/12 104 Status: Signed Intermediate Frame Tender: Chela Varela RPH (Pharmacist) Clinical Pharmacy Note - Vancomycin Day #1 Carol Jim47 y.o. male Height: 170.2 cm Weight: 70.6 [...] Date of Service: 10/08/12 1025 Status: Signed Intermediate Frame Tender: Cosmo Soria MD (Physician) PCP is [facility] LOS: 5 days Carol Potter [...] vancomycin 750 mg Intravenous Once vitamin B ilkarcl-P-obtuf acid 1 tablet Oral Daily DISCONTD: allopurinol [...] who is dialyzed Saturday and Saturday at [facility] via Left upper extremity br achio cephalic fistula (last HD was Saturday10/03/12). He is now admitted with C. Difficile colitis and failure to thrive. I will continue maintenance HD. Records from [facility] Have been reviewed.I s poke [...] binders for now. He would benefit from lead data entry operator evaluation. Lab Results Component Value Date [...] Date of Service: 10/08/12 1000 Status: Addendum Intermediate Frame Tender: Rowena Araya RN (Registered Nurse) Related Notes: [...] Date of Service: 10/08/12 0907 Status: Signed Intermediate Frame Tender: Khanh Rangel MD (Physician) [facility] Service: Hospitalist Progress Note Hospital Day: LOS: 5 days Post-Op Day: * No surgery found * SUBJECTIVE Events Overnight: Eating dinner, denies any complaints. Is aware wanting to go to [facility]. ROS: 12 point ROS reviewed and negative [...] 800 mg Oral TID WC vitamin B gxzcfdb-C-hgvtz acid 1 tablet Oral Daily DISCONTD: allopurinol [...] bruises, rashes, lesions, or ulcers. DATA Lab 10/08/12 0540 10/07/12 0400 10/06/12 0410 WBC 14.2* 11.5* 8.9 RBC 3.11* 3.58* 3.40* HCT 26.0* 29.5* 28.6* MCV 83.8 82.4 84.1 MCH 27.4 26.6* 27.1 MCHC 32.7 32.2 32.3 RDW 50.3 49.9 47.7 PLT 420* 430* 420* MPV 6.8 7.1 7.1 DIFFTYPE AUTOMATED AUTOMATED AUTOMATED Lab 10/08/12 0540 10/07/12 0400 10/06/12 0410 K 5.4* 4.4 4.6 CL [...] hours Xr Abdomen 1 View 10/06/2012 CAROL TARIQ XR ABDOMEN 1 VIEW 10/06/2012 11:43 AM [...] 10/07/121746 Date of Service: 10/07/121743 Status: Signed Intermediate Frame Tender: Cosmo Soira MD (Physician) PCP is [facility] LOS: 4 days Carol Potter is [...] sevelamer 800 mg Oral TID vitamin B fcjymis-L-lvztc acid 1 tablet Oral Daily Continuous Infusions [...] who is dialyzed Saturday and Saturday at [facility] via Left upper extremity br achio cephalic fistula (last HD was Saturday10/03/12). He is not admitted with C. Difficile colitis and failure to thrive. I will continue maintenance HD. Records from [facility] Have been reviewed.I s poke [...] binders for now. He would benefit from lead data entry operator evaluation. Lab Results Component Value Date [...] Notes by Khanh Rangel MD at 10/07/12 5939 Author: Khanh Rangel MD Service: (none) Author Type: Physician Filed: 10/07/121 Date of Service: 10/07/121637 Status: Signed Intermediate Frame Tender: Khanh Rangel MD (Physician) [facility] Service: Hospitalist Progress Note Hospital Day: [...] Oral Daily metroNIDAZOLE 500 mg Oral Q8H [facility] omeprazole 40 mg Oral Daily sevelamer 800 mg Oral TID vitamin B gvgxcho-S-mjpuh acid 1 tablet Oral Daily Continuous Infusions [...] 17* 11* 16* BMP: Lab 10/07/12 0400 10/06/12 0410 10/05/12 0400 NA 133* 129* 129* K [...] Macho Abraham MS Service: (none) Author Type: Emergency Telecommunications Dispatcher Filed: 10/07/12 1318 Date of Service: 10/07/12 1314 Status: Signed Intermediate Frame Tender: Macho Abraham MS (Emergency Telecommunications Dispatcher) CM spoke with Shyanne, pt's spouse and she is planning on coming to [facility] this afternoon and she reports she can transport pt to [facility] in [place] when discharge. She plans to stay the night if not discharged. onver quique Transaction, Provider Unknown - 10/07/2012 10:51 AM PDT Progress Notes by Ruslan Amezquita PTA at 10/07/12 1051 Author: Ruslan Amezquita PTA Service: (none) Author Type: Driller'S Assistant Filed: 10/07/12 1051 Date of Service: 10/07/12 1051 Status: Signed Intermediate Frame Tender: Rusaln Amezquita PTA (Driller'S Assistant) 10/07/12 1048 PT Last Visit PT Received [...] Macho Abraham MS Service: (none) Author Type: Emergency Telecommunications Dispatcher Filed: 10/07/12 1000 Date of Service: 10/07/1258 Status: Signed Intermediate Frame Tender: Macho Abraham MS (Emergency Telecommunications Dispatcher) Discharge planning update: CM met with pt today, he is agreeable with a discharge to [facility] in [place]. CM to fax orders to [facility] when they become available. Dorene Han MD - 10/06/2012 6:58 PM PDTFormatting of this note might be different from the orig inal. Progress Notes by Dorene Jeffrey MD at 10/06/121857 Author: Dorene Jeffrey MD Service: (none) Author Type: Physician Filed: 10/06/121932 Date of Service: 10/06/121857 Status: Signed Intermediate Frame Tender: Dorene Jeffrey MD (Physician) [facility] Service: Hospitalist Progress Note Hospital Day: [...] patient, and he will need SNF placement. H e has been accepted to [facility] when ready for discharge. Dr. Soria is [...] Oral Daily metroNIDAZOLE 500 mg Oral Q8H [facility] omeprazole 40 mg Oral Daily sevelamer 800 mg Oral TID vitamin B eeyejlb-V-gvrif acid 1 tablet Oral Daily DISCONTD: allopurinol [...] SpO2: [95 %-100 %] 100 % (10/06 1500) Weight: [67.5 kg (148 lb 13 oz)-69 [...] Extremities: venous stasis dermatitis noted DATA Lab 10/06/1240910/05/12 0400 10/04/12 0521 WBC 8.9 7.9 7.9 [...] massage therapy. Qian ent can transfer to [facility] on acceptance. 4) Anemia of chronic disease [...] Notes by Macho Abraham MS at 10/06/12 2159 Author: Macho Abraham MS Service: (none) Author Type: Emergency Telecommunications Dispatcher Filed: 10/07/12 5803 Date of Service: 10/06/12 2233 Status: Addendum Intermediate Frame Tender: Macho Abraham MS (Emergency Telecommunications Dispatcher) Related Notes: Original Note by Macho Abraham MS (Emergency Telecommunications Dispatcher) filed at 10/06/12 4490 CM received call back from Angelique at [facility] and she states they do not have a private room for pt. CM faced inquiry to [facility] to inquire about a private room. Awaiting determina tion. Discharge planning update: [facility] in [place] per Zaki has accepted pt. They can admit p t Saturday or when needed. Cosmo Lang MD - 10/06/2012 2:00 PM PDTFormatting of this note might be different from the or iginal. Progress Notes by Cosmo Soria MD at 10/06/12 1400 Author: Cosmo Soria MD Service: Nephrology Author Type: Physician Filed: 10/06/12 2539 Date of Service: 10/06/12 1400 Status: Signed Intermediate Frame Tender: Cosmo Soria MD (Physician) PCP is [facility] LOS: 3 days Carol Potter is [...] sevelamer 800 mg Oral TID vitamin B lkxhodi-B-gkifx acid 1 tablet Oral Daily DISCONTD: allopurinol [...] who is dialyzed Saturday and Saturday at [facility] unit via Left upper extremity br achio cephalic fistula (last HD was Saturday10/03/12). He is not great with C. Difficile colitis and failure to thrive. I will continue maintenance HD. Records from [facility] dialysis unit Have been reviewed.I s poke [...] binders for now. He would benefit from lead data entry operator evaluation. Lab Results Component Value Date [...] Macho Abraham MS Service: (none) Author Type: Emergency Telecommunications Dispatcher Filed: 10/06/12 1244 Date of Service: 10/06/12 124 Status: Addendum Intermediate Frame Tender: Macho Abraham MS (Emergency Telecommunications Dispatcher) Related Notes: Original Note by Macho Abraham MS (Emergency Telecommunications Dispatcher) filed at 10/06/12 1243 CM spoke with Santos at [facility] and facility is still making a determination. Pt is conn [facility]cted with [facility] [place]. Facility is verifying pt's transportation to/from dialysis and if [facility] will offer transport assistance. CM also [facility] and could use Medicaid transportation services too. Transfer forms on chart as ne eded. onver quique Carlisleaction, Provider Unknown - 10/06/2012 10:10 AM PDT Progress Notes by Ruslan Amezquita PTA at 10/06/12 1010 Author: Ruslan Amezquita PTA Service: (none) Author Type: Driller'S Assistant Filed: 10/06/12 1011 Date of Service: 10/06/12 1010 Status: Signed Intermediate Frame Tender: Ruslan Amezquita PTA (Driller'S Assistant) 10/06/12 1010 PT Last Visit PT Received [...] 10/05/121917 Date of Service: 10/05/121909 Status: Signed Intermediate Frame Tender: Dorene Jeffrey MD (Physician) [facility] Service: Hospitalist Progress Note Hospital Day: [...] 800 mg Oral TID WC vitamin B btuyflr-A-lafzs acid 1 tablet Oral Daily Continuous Infusions [...] Extremities: venous stasis dermatitis noted DATA Lab 10/05/12 0400 10/04/12 0521 10/03/127 WBC 7.9 7.9 7.9 HGB 9.3* 9.8* 10.2* HCT 28.6* 30.9* 32.1* PLT 378 426* 355 NEUTOPHILPCT 74.7 72.5 80.5* MONOPCT 9.2 10.7 7.7 Lab 10/05/12 0400 10/04/12 0521 10/03/127 NA 129* 132* 136 K 4.6 3.9 [...] Ruslan Amezquita PTA Service: (none) Author Type: Driller'S Assistant Filed: 10/05/12 1421 Date of Service: 10/05/12 142 Status: Signed Intermediate Frame Tender: Ruslan Amezquita PTA (Driller'S Assistant) 10/05/12 1419 PT Last Visit PT Received [...] Progress Notes by VANDANA Olivia at 10/05/12 2167 Author: VANDANA Olivia Service: (none) Author Type: Emergency Telecommunications Dispatcher Filed: 10/05/12 1400 Date of Service: 10/05/12 1357 Status: Signed Intermediate Frame Tender: VANDANA Olivia (Emergency Telecommunications Dispatcher) CM met with Pt re dc plan. Pt lives at home with Spouse and 2 adult Son's. He is unable t o ambulate and uses a wheelchair. Family assists with all ADL's. Pt stated he wants to sta rt walking again and that he's been on a "waiting list" for [facility] since last Saturday for rehab. Referral faxed to [facility] by CM for discharge when Pt medically [...] Date of Service: 10/04/12 1641 Status: Signed Intermediate Frame Tender: Dorene Jeffrey MD (Physician) [facility] Service: Hospitalist Progress Note Hospital Day: LOS: 1 day Post-Op Day: * No surgery found * SUBJECTIVE Patient Summary: Patient admitted for failure to thrive. He reports having diarrhea for the last three days, and he has been recently treated for MSSA bacteremia and arthiritis . Events Overnight: patient reports still feeling weak. Was working with physical LawyerPaida py, but states that he was in [...] 800 mg Oral TID WC vitamin B pcrggnw-W-lrhcb acid 1 tablet Oral Daily Continuous Infusions [...] venous stasis dermatitis noted DATA Lab 10/04/12 0521 10/03/122116 WBC 7.9 7.9 HGB 9.8* 10.2* HCT 30.9* 32.1* PLT 426* 355 NEUTOPHILPCT 72.5 80.5* MONOPCT 10.7 7.7 Lab 10/04/12 0521 10/03/127 NA 132* 136 K 3.9 3.6 CL [...] Status: Full Code DORENE JEFFREY MD 10/04/2012 onversyovany n Transaction, Provider Unknown - 10/04/2012 2:28 PM PDTFormatting of this note might be di fferent from the original. Progress Notes by Kirti Álvarez RN at 10/04/12 1428 Author: Kirti Álvarez RN Service: Wound/Ostomy Care Author Type: Registered Nurse Filed: 10/04/12 1430 Date of Service: 10/04/128 Status: Signed Intermediate Frame Tender: Kirti Álvarez RN (Registered Nurse) Patient seen today by accreditation specialist for evaluation due to open pressure ulcer [...] wh ich were saturated. Attends changed by TABLE CUT OFF SAW OPERATOR and primary RN. Patient is on a [...] (none) Author Type: Physical Therapist Filed: 10/04/12 4921 Date of Service: 10/04/12 1410 Status: Signed Intermediate Frame Tender: So Nunez PT (Physical Therapist) 10/04/12 1410 [...] Patient limited by pain Nurse Made Aware HARDIK Reaves informed. Plan Treatment/Interventions Bed mobility training;Balance training;Family training;Gait trainin g;Monitor vital signs;Provide HEP;Review HEP;Review precautions;Set goals;Therapeutic exerci se;Transfer training;W/C training PT Frequency 5-7x/wk Care Duration (# of days) 7 # of days Recommendation Recommendations SNF;Home PT;Home OT;Continue acute care therapy Equipment Recommended (has necessary equipment) OTHER Pain Score 8 Pain Assessment 0-10 Pain Pain Location Thigh Pain Screening Currently in Pain Yes urtSo han - 10/05/19 2:10 PM PDT Progress Notes by So Nunez PT at 10/04/12 1410 Author: So Nunez PT Service: (none) Author Type: Physical Therapist Filed: 10/04/12 1512 Date of Service: 10/04/12 1410 Status: Signed Intermediate Frame Tender: So Nunez PT (Physical Therapist) 10/04/12 1410 [...] (has necessary equipment) Prior Function Level of [place] Assist with functional mobility;Assist with ADLs;Assist with [...] Orientation Left;Inner Pain Location Thigh onversion Transaction, P mundo Unknown - 10/04/2012 11:48 AM PDT Progress Notes by Trinidad Coon RPH at 10/04/121147 Author: Trinidad Coon RPH Service: (none) Author Type: Pharmacist Filed: 10/04/121147 Date of Service: 10/04/121147 Status: Signed Intermediate Frame Tender: Trinidad Coon RPH (Pharmacist) Renal Dosing Monitoring: Carol Tariq 47 y.o. male Pharmacy dosing for renal [...] 10/04/12929 Date of Service: 10/04/12919 Status: Signed Intermediate Frame Tender: Vickie Hernandez RN (Registered Nurse) Report given to Chidi DYE on [facility]. Pt to be inpatient and go 6605 ------KPEOTRN 10/04/12929. docume nted in this encounter H&P Notes Galdino Oliveros MD - 10/03/2012 11:15 PM PDTFormatting of this note might be dif ferent from the original. H&P by Galdino Oliveros MD at 10/03/126 Author: Galdino Oliveros MD Service: (none) Author Type: Physician Filed: 10/04/12612 Date of Service: 10/03/122314 Status: Signed Intermediate Frame Tender: Galdino Oliveros MD (Physician) Related Notes: Original Note by Galdino Oliveros MD (Physician) filed at 10/04/12 0241 [facility] Service: Hospitalist Admission History & Physical Date of Admission: 10/03/2012 Requesting Physician: Parker, Emergency Department Reason for Admission: Failure to thrive and weakness. History Obtained From: patient CHIEF COMPLAINT: Weakness. HISTORY OF PRESENT ILLNESS The patient is a 47 y.o. male with significant past medical history. The patient is a transfer from [facility] in [place], [place] with a chief complaint that he [...] W/ EGD; Surgeon: John Singleton MD; Location: [facility]COPY; Se rvice: Gastroenterology; Laterality: N/A; Av fistula placement 05/06/2012 Procedure: AV FISTULA; Surgeon: Oskar Meyer MD; Location: [facility] MAIN OR; Service: Vascul ar; Laterality: Left; Left arm possible right Unlisted procedure arthroscopy shoulder rt , ligaments Knee arthroscopy 07/07/2012 Procedure: KNEE - ARTHROSCOPY; Surgeon: Favio Raza MD; Location: [facility] MA[facility] OR; chidi: Orthopedics; Laterality: Right; After 1530 Catheter removal 07/07/2012 Procedure: DIALYSIS CATHETER REMOVAL; Surgeon: Oskar Meyer MD; Location: [facility] BEDSIDE OR OCEDURE; Service: General; Laterality: Right; perm cath Dialysis fistula creation 07/07/2012 Procedure: DIALYSIS CATHETER INSERTION; Surgeon: Oskar Meyer MD; Location: [facility] BEDSIDE PROCEDURE; Service: General; Laterality: Left; temporary dialysis catheter Av fistula repair 07/11/2012 Procedure: AV FISTULA GRAFT REPAIR/REVISION; Surgeon: Oskar Meyer MD; Location: [facility] OR; Service: Vascular; Laterality: Left; Superficialization of brachiobasilic fistula and right IJ perm cath insertion Dialysis fistula creation 07/11/2012 Procedure: DIALYSIS CATHETER INSERTION; Surgeon: Oskar Meyer MD; Location: [facility] MA[facility] OR; Service: Vascular; Laterality: Left; [...] BIOLOGICAL; 2 STEP KIDSUNEMPLOYED BEFORE WORKED AT [employer] [place] NONE ETOH QUIT 15 YEARS AGODRUGS: quit [...] renal disease, currently on hemodialysis Saturday, Saturday, Rod. He just finished his session this morning. [...] Code Status: Full code. Primary Care Physician: [facility] GALDINO OLIVEROS MD 10/03/2012 documente d in this encounter Procedure Notes Inder Anne MD - 10/09/2012 3:17 PM PDTFormatting of this note might be different from t he original. Procedures signed by Inder Anne MD at 11/05/12 5589 Author: Inder Anne MD Service: (none) Author Type: Physician Filed: 11/05/12 1115 Date of Service: 10/09/12 0037 Status: Signed Intermediate Frame Tender: Inder Anne MD (Physician) CAROL POTTER Date of : 1965 PULMONARY FUNCTION STUDY AGE: 47 GENDER: Male HEIGHT: 5 feet, 7 inches WEIGHT: 148 pounds BODY MASS INDEX: 23.2 kg/m/sq. Spirometry shows decreased FEV1/FVC ratio. FEV1 is 32% predicted of normal. Severe obstructive airflow impairment is present. Recommend bronchodilator administration as well as lung volume studies with diffusion capacity for further study. P/ P/kh/[id number] INDER ANNE MD documented in this enco unter Consult Notes Mike Palacio H - 10/13/2012 9:58 PM PDTFormatting of this note might be different from th e original. Consult* by Mike Palacio DO at 10/13/122157 Author: Mike Palacio DO Service: Orthopedic Surgery Author Type: Physician Filed: 12/23/12 5029 Date of Service: 10/13/122157 Status: Signed Intermediate Frame Tender: Mike Palacio DO (Physician) Related Notes: Original Note by Mike Palacio DO (Physician) filed at 12/21/12 9319 [facility] Service: Orthopedic Surgery Initial Consult Note 13 [...] W/ EGD; Surgeon: John Singleton MD; Location: [facility]; Se rvice: Gastroenterology; Laterality: N/A; Av fistula placement 05/06/2012 Procedure: AV FISTULA; Surgeon: Oskar Meyer MD; Location: [facility] OR; Service: Vascul ar; Laterality: Left; Left arm possible right Unlisted procedure arthroscopy shoulder rt , ligaments Knee arthroscopy 07/07/2012 Procedure: KNEE - ARTHROSCOPY; Surgeon: Favio Raza MD; Location: [facility] OR; S ervice: Orthopedics; Laterality: Right; After 1530 Catheter removal 07/07/2012 Procedure: DIALYSIS CATHETER REMOVAL; Surgeon: Oskar Meyer MD; Location: [facility] BEDSIDE OR OCEDURE; Service: General; Laterality: Right; perm cath Dialysis fistula creation 07/07/2012 Procedure: DIALYSIS CATHETER INSERTION; Surgeon: Oskar Meyer MD; Location: [facility]ED[facility] PROCEDURE; Service: General; Laterality: Left; temporary dialysis catheter Av fistula repair 07/11/2012 Procedure: AV FISTULA GRAFT REPAIR/REVISION; Surgeon: Oskar Meyer MD; [facility]; Service: Vascular; Laterality: Left; Superficialization of brachiobasilic fistula and right IJ perm cath insertion Dialysis fistula creation 07/11/2012 Procedure: DIALYSIS CATHETER INSERTION; Surgeon: Oskar Meyer MD; Location: [facility] OR; Service: Vascular; Laterality: Left; [...] times daily as ne eded. ergocalciferol (DRISDOL) 97866 UNITS capsule Take 1 capsule by mouth [...] vancomycin 750 mg Intravenous Once vitamin B gvevcgf-N-pnosr acid 1 tablet Oral Daily Continuous Infusions [...] Drugs meth and MJ. Stopped MAR 2012. [place], [place] - Shyanne Son - Sam - Moni Son - Kirill Daughter in law Chela [phone] Cell. [phone] Cell Chela. PHYSICAL EXAM Vital Signs: BP [...] left and right hip could be flexed, audio production engineer ally rotated and internally rotated without any [...] Code Status: Full Code Primary Care Physician: [facility] Thank you for allowing me to participate in the care of this patient. MIKE PALACIO DO 10/13/2012 Trevor Lockett - 10/11/19 13 4:31 PM PDT Consult* by Trevor Escobar DO at 10/10/12 0663 Author: Trevor Escobar DO Service: (none) Author Type: Physician Filed: 10/10/12 2177 Date of Service: 10/10/12 1631 Status: Signed Intermediate Frame Tender: Trevor Escobar DO (Physician) [facility] Service: Infectious Disease Initial Consult Note Date of Admission: 10/03/2012 Reason for Consultation: Staph aureus bacteremia Requesting Physician: Antonia Rangelist History Obtained From: patient, chart review CHIEF [...] actually negative. Blood cultures were ef a saranya r on October 07 and are both [...] Dr. Meyer. This was created usin g lummi vein and does not contain any graft [...] W/ EGD; Surgeon: John Singleton MD; Location: [facility]; Se rvice: Gastroenterology; Laterality: N/A; Av fistula placement 05/06/2012 Procedure: AV FISTULA; Surgeon: Oskar Meyer MD; Location: [facility] OR; Service: Vascul ar; Laterality: Left; Left arm possible right Unlisted procedure arthroscopy shoulder rt , ligaments Knee arthroscopy 07/07/2012 Procedure: KNEE - ARTHROSCOPY; Surgeon: Favio Raza MD; Location: [facility] OR; S ervice: Orthopedics; Laterality: Right; After 1530 Catheter removal 07/07/2012 Procedure: DIALYSIS CATHETER REMOVAL; Surgeon: Oskar Meyer MD; Location: [facility]ED[facility] OR OCEDURE; Service: General; Laterality: Right; perm cath Dialysis fistula creation 07/07/2012 Procedure: DIALYSIS CATHETER INSERTION; Surgeon: Oskar Meyer MD; Location: [facility] BEDS[facility] PROCEDURE; Service: General; Laterality: Left; temporary dialysis catheter Av fistula repair 07/11/2012 Procedure: AV FISTULA GRAFT REPAIR/REVISION; Surgeon: Oskar Meyer MD; Location: [facility] OR; Service: Vascular; Laterality: Left; Superficialization of brachiobasilic fistula and right IJ perm cath insertion Dialysis fistula creation 07/11/2012 Procedure: DIALYSIS CATHETER INSERTION; Surgeon: Oskar Meyer MD; Location: [facility] OR; Service: Vascular; Laterality: [...] times daily as ne eded. ergocalciferol (DRISDOL) 39309 UNITS capsule Take 1 capsule by mouth [...] vancomycin 750 mg Intravenous Once vitamin B axxvxne-S-myfas acid 1 tablet Oral Daily DISCONTD: meropenem [...] BIOLOGICAL; 2 STEP KIDSUNEMPLOYED BEFORE WORKED AT [employer] IN [employer] COURSESMOKE NONE ETOH QUIT 15 YEARS AGODRUGS: [...] effusion, new compared to previous studies from July. Transesophageal echocardiogram yesterday did not show any [...] plain film. If this is unrevealing, w mariela could consider noncontrast MRI or bone scan. Code Status: Full Code Primary Care Physician: [facility] Thank you for allowing me to participate in the care of this patient. I will continue to follow with you. TREVOR ESCOBAR DO 10/10/2012 Cosmo Lang MD - 10/05 12:58 PM PDT Consult* by Cosmo Soria MD at 10/05/12 3092 Author: Cosmo Soria MD Service: Nephrology Author Type: Physician Filed: 10/06/12 4776 Date of Service: 10/05/12 7098 Status: Signed Intermediate Frame Tender: Cosmo Soria MD (Physician) [facility] Service: NEPHROLOGY CONSULT Note Carol Potter 47 y.o. [id number] male PCP is [place] Hospital Day: LOS: 2 days Date of Admission: 10/05/2012 Requesting Physician: Dr. Mcmahon Reason for Admission: C. Difficile colitis Reason for consult: ESRD management History Obtained From: patient, chart review CHIEF COMPLAINT: I had diarrhea HISTORY OF PRESENT ILLNESS: Carol Potter is a 47 y.o. male with ESRD secondary to Biopsy-proven Diabetic nephropathy who is dialyzed Saturday and Saturday at [place] dialysis unit via Left upper extremity brachio cephalic fistula Who was transferred from [facility] in [place], [place] with a chief complaint that he [...] W/ EGD; Surgeon: John Singleton MD; Location: [facility]; Se rvice: Gastroenterology; Laterality: N/A; Av fistula placement 05/06/2012 Procedure: AV FISTULA; Surgeon: Oskar Meyer MD; Location: [facility] OR; Service: Vascul ar; Laterality: Left; Left arm possible right Unlisted procedure arthroscopy shoulder rt , ligaments Knee arthroscopy 07/07/2012 Procedure: KNEE - ARTHROSCOPY; Surgeon: Favio Raza MD; Location: [facility] OR; ervice: Orthopedics; Laterality: Right; After 1530 Catheter removal 07/07/2012 Procedure: DIALYSIS CATHETER REMOVAL; Surgeon: Oskar Meyer MD; Location: [facility]ED[facility]IDE OR OCEDURE; Service: General; Laterality: Right; perm cath Dialysis fistula creation 07/07/2012 Procedure: DIALYSIS CATHETER INSERTION; Surgeon: Oskar Meyer MD; Location: [facility] PROCEDURE; Service: General; Laterality: Left; temporary dialysis catheter Av fistula repair 07/11/2012 Procedure: AV FISTULA GRAFT REPAIR/REVISION; Surgeon: Oskar Meyer MD; Location: [facility] OR; Service: Vascular; Laterality: Left; Superficialization of brachiobasilic fistula and right IJ perm cath insertion Dialysis fistula creation 07/11/2012 Procedure: DIALYSIS CATHETER INSERTION; Surgeon: Oskar Meyer MD; Location: [facility]; Service: Vascular; Laterality: Left; removed dialysis [...] needed . Yes Historical Provider ergocalciferol (DRISDOL) 25328 UNITS capsule Take 1 capsule by mouth [...] sevelamer 800 mg Oral TID vitamin B ibmmgeq-J-onooj acid 1 tablet Oral Daily Continuous Infusions [...] DRAW Specimen Description Value: Testing performed at [facility];[address] [place] [address] SPECIAL REQUESTS L HAND SPECIAL REQUESTS Value: Testing performed at [facility];[address] [place] [address] 28729 CULTURE NO GROWTH AT THIS TIME CULTURE Value: Testing performed at [facility];[address] [place] [address] 13799 REPORT STATUS PENDING BLOOD CULTURE, SET 2 Collection Time 10/04/12 5:59 PM Component Value Range Specimen Description BLOOD, PERIPHERAL DRAW Specimen Description Value: Testing performed at [facility];[address] [place] [address]2653 SPECIAL REQUESTS L ARM SPECIAL REQUESTS Value: Testing performed at [facility];[address] [place] [address] 697[address] CULTURE NO GROWTH AT THIS TIME CULTURE Value: Testing performed at [facility];[address] [place] [address] 71500 REPORT STATUS PENDING POCT GLUCOSE Collection Time [...] i s dialyzed Saturday and Saturday at [place] dialysis unit via Left upper extremity b rachio cephalic fistula (last HD was Saturday10/03/12). His primary plaster machine tender is Dr. Timmons. He is now Admitted with C. Difficile colitis and failure to thrive. I will continue maintenance HD. Records from [place] dialysis unit Need to be reviewed. The [...] binders for now. He would benefit from lead data entry operator evaluation. Lab Results Component Value Date [...] 10/03/122226 Date of Service: 10/03/122222 Status: Signed Intermediate Frame Tender: Carola Montoya RN (Registered Nurse) TC from pt's niece, who inquires after pt's condition. Informed pt is stable, alert and bernard carlton to staff. Advised to call back in the AM to obtain pt's room number and to speak to pt. Carola Montoya RN 10/03/122226 onver quique [place], Provider Unknown - 10/03/2012 10:12 PM PDT ED Notes by Carola Montoya RN at 10/03/122211 Author: Carola Montoya RN Service: (none) Author Type: Registered Nurse Filed: 10/03/122213 Date of Service: 10/03/122211 Status: Signed Intermediate Frame Tender: Carola Montoya RN (Registered Nurse) Back from radiology, continues ot c/o pain in neck and left leg. Will notify Dr. Parker rousseau ask for pt's routine pain medication when able. Carola Montoya RN 10/03/122213 Brady chaves DO - 10/03/2012 9:05 PM PDTFormatting of this note might be different from the or iginal. ED Provider Notes by Brady Canales DO at 10/03/122104 Author: Brady Canales DO Service: (none) Author Type: Physician Filed: 10/08/12 0416 Date of Service: 10/03/122104 Status: Signed Intermediate Frame Tender: Brady Canales DO (Physician) [facility] Department of Emergency Medicine Pre-arrival Provider to Provider Row Name 10/03/12 1738 Pre-arrival Provider Pre-arrival Provider Another ED Provider Name Dr. Tavera ([facility]) Pertinent History and Concerns recent 10 lb weight loss, cannot walk over last 2 days, HEAD CT negative, CXR nothing acute, EKG nothing acute, failure to thrive, DDRF (Dr. Timmons) MWF Relevant Labs or Studies K 3.4 Relevant Medications No new medications Current Reported Vital Signs wnl 140/70, 87, 14, 98%, afebrile Currently Involved Consultants at [facility] Likely need rehab services and will likely require dilaysis while admitted 9:06 PM 10/03/2012 History of Present Illness Patient Identification Carol Potter is a 47 y.o. male. Patient information was obtained from patient and EMS personnel. History/Exam limitations: none. Patient presented to the Emergency Department by: Ambulance Primary care physician: [facility] Chief Complaint Chief Complaint Patient presents [...] alleviating factors. The pt states he fell Tues day. He reports he produces minimal urine. Pt denies fever/chills, headache, facial pain, rh inorrhea, sore throat, chest pain, dyspnea, abdominal pain, N/V, bowel or bladder habit perez ges, skin rash, paresthesias, lymphadenopathy, or new bruising. Patient has been evaluated at [facility] and transferred here. Past Medical History Diagnosis [...] W/ EGD; Surgeon: John Singleton MD; Location: [facility] ENDOSCOPY; Se rvice: Gastroenterology; Laterality: N/A; Av fistula placement 05/06/2012 Procedure: AV FISTULA; Surgeon: Oskar Meyer MD; Location: [facility] MAIN OR; Service: Vascul ar; Laterality: Left; Left arm possible right Unlisted procedure arthroscopy shoulder rt , ligaments Knee arthroscopy 07/07/2012 Procedure: KNEE - ARTHROSCOPY; Surgeon: Favio Raza MD; Location: [facility] MAIN OR; S ervice: Orthopedics; Laterality: Right; After 1530 Catheter removal 07/07/2012 Procedure: DIALYSIS CATHETER REMOVAL; Surgeon: Oskar Meyer MD; Location: [facility] BEDSIDE OR OCEDURE; Service: General; Laterality: Right; perm cath Dialysis fistula creation 07/07/2012 Procedure: DIALYSIS CATHETER INSERTION; Surgeon: Oskar Meyer MD; Location: [facility] BEDSIDE PROCEDURE; Service: General; Laterality: Left; temporary dialysis catheter Av fistula repair 07/11/2012 Procedure: AV FISTULA GRAFT REPAIR/REVISION; Surgeon: Oskar Meyer MD; Location: [facility] OR; Service: Vascular; Laterality: Left; Superficialization of brachiobasilic fistula and right IJ perm cath insertion Dialysis fistula creation 07/11/2012 Procedure: DIALYSIS CATHETER INSERTION; Surgeon: Oskar Meyer MD; Location: [facility] MAIN OR; Service: Vascular; Laterality: Left; [...] by mouth nightly. Historical Provider ergocalciferol (DRISDOL) 48785 UNITS capsule Take 1 capsule by mouth [...] BIOLOGICAL; 2 STEP KIDSUNEMPLOYED BEFORE WORKED AT [employer] [place] NONE ETOH QUIT 15 YEARS AGODRUGS: quit [...] and upper back pain. CXR completed at [facility] which showed no acute abnormalities. After gathering [...] Value Ref Range Date/Time Complete Metabolic Panel [[id number]] (Abnormal) Collected:10/03/122116 Order Status:Completed Updated:10/03/122201 Specimen Information:Blood [...] U/L EGFR 32 (L) >60 mL/min/1.73m2 Prealbumin [[id number]] (Abnormal) Collected:10/03/122116 Order Status:Completed Updated:10/03/122201 Specimen Information:Blood PREALBUMIN 7.9 (L) 20.0 - 40.0 mg/dL Magnesium [[id number]] (Abnormal) Collected:10/03/122116 Order Status:Completed Updated:10/03/122201 Specimen Information:Blood MAGNESIUM 1.6 (L) 1.7 - 2.4 mg/dL Phosphorus [[id number]] Collected:10/03/122116 Order Status:Completed Updated:10/03/122201 Specimen Information:Blood PHOSPHORUS 2.3 2.3 - 4.8 mg/dL Urine Microscopic [[id number]] Collected:10/03/122124 Order Status:Completed Updated:10/03/122156 Specimen Information:Urine / Urine, Clean Catch WBC 1-5 0 - 5 /hpf RBC 6-10 0 - 5 /hpf EPITHELIAL 11-15 /lpf BACTERIA NONE SEEN NONE SEEN Casts 1-5 /lpf CBC w Auto Diff [[id number]] (Abnormal) Collected:10/03/122116 Order Status:Completed Updated:10/03/122141 Specimen Information:Blood [...] 0 - 0.1 K/uL POC clinitek 10 [[id number]] (Abnormal) Collected:10/03/122130 Order Status:Completed Updated:10/03/122134 Color, UA [...] Interpretation Documented by Brady Canales DO (10/03/122218, [facility] Emergency Department, Emergency Medicine) 3 view cervical [...] Interpretation: Time: 21:49 Rate: 85 Rhythm: Sinus Asher: Left BASSAM: Normal QRS: Incomplete RBBB ST [...] I yojana post with its contents. DO Brady Estes DO 10/08/12 0416 onversion Transactio n, Provider Unknown - 10/03/2012 9:04 PM PDT ED Notes by Carola Montoya RN at 10/03/122103 Author: Carola Montoya RN Service: (none) Author Type: Registered Nurse Filed: 10/03/122103 Date of Service: 10/03/122103 Status: Signed Intermediate Frame Tender: Carola Montoya RN (Registered Nurse) Bed:09
Expected date:
Expected time:
Means of arrival:
Comments:
onver quique Transaction, Provider Unknown - 10/03/2012 8:36 PM PDT ED Notes by Gerardo De La Vega RN at 10/03/122035 Author: Gerardo De La Vega RN Service: (none) Author Type: Registered Nurse Filed: 10/03/122046 Date of Service: 10/03/122035 Status: Signed Intermediate Frame Tender: Gerardo De La Vega RN (Registered Nurse) EMS report. 47 y.o. male with transfer from [facility]. BP 138/76, HR 85, RR 16, O2 sat 98% . ETA 40 min. Gerardo De La Vega RN 10/03/122046 onver quique Transaction, Provider Unknown - 10/03/2012 7:20 PM PDT ED Notes by Gerardo De La Vega RN at 10/03/121919 Author: Gerardo De La Vega RN Service: (none) Author Type: Registered Nurse Filed: 10/03/121945 Date of Service: 10/03/121919 Status: Signed Intermediate Frame Tender: Gerardo De La Vega RN (Registered Nurse) Nurse report. 47 y.o. male with c/o failure to thrive, needs full assist. Has IV. Has histo ry of renal failure, had dialysis today. BP 143/76, HR 84, RR 16, O2 sat 96% RA, pain 8/10. ETA 2030. Gerardo De La Vega RN 04/12/13 1948 docume nted in this encounter Plan of [...] Palm Conversion - 02/13/2019 4:30 PM PDT EXAM:TRIPLE-PHASE [...] Testing performed | | | at [facility];[address] [place] [address];[place] [address] SPECIAL REQUESTS | | | RAC | | | Testing performed at [facility];[address] [place] [address];[place] [address] | | | CULTURE NO GROWTH IN 5 DAYS. | | | Testing | | | performed at [facility];[address] [place] [address];[place] [address] REPORT STATUS | | | 10/16/2012 FINAL [...] Testing performed | | | at [facility];[address] [place] [address];[place] [address] SPECIAL REQUESTS | | | RAC | | | Testing performed at [facility];[address] [place] [address];[place] [address] | | | CULTURE NO GROWTH IN 5 DAYS. | | | Testing | | | performed at [facility];[address] [place] [address];[place] [address] REPORT STATUS | | | 10/16/2012 FINAL [...] 45 %. 3. No vegetation visualized. 4. Qlin-ly-ifkpkmvg | | | mitral regurgitation is present. [...] vegetation visualized. Mitral | | | Valve: Thut-bf-lxqifiac mitral regurgitation is present. Tricuspid | | [...] pericardial effusion | | | present. MEASUREMENTS Junior Estimator: CM | | | Authenticated by: Beny [...] | | 45 %.3. No vegetation visualized.4. Dsqm-ec-jkeqqpyu mitral regurgitation is present.5. | | There [...] | stenosis.Aortic Valve: No vegetation visualized.Mitral Valve: Ispk-qq-ekcstoyv mitral | | regurgitation is present.Tricuspid Valve: The tricuspid valve appears structurally | | normal. Trace/Mild (physiologic) regurgitation.Aorta: Ascending aorta, aortic arch and | | descending thoracic aorta are of normal caliber with no significant atherosclerotic | | disease.Mass: No mass visualized.Thrombus: No clot visualized.Pericardium: There is a | | trivial pericardial effusion present. MEASUREMENTS Junior Estimator: | | CMAuthenticated by: Beny Infante Date/Time: 10-09-2012 18:41:13 | |Right Atrium: The [...] Valve: No vegetation visualized. | |Mitral Valve: Wtbe-ob-dlsfvsdv mitral regurgitation is present. | |Tricuspid Valve: [...] | |MEASUREMENTS | | | | | |Junior Estimator: CM | |Authenticated by: Beny Valencia MD [...] Procedure Note | + -------+ | Néstor, Khalif Conversion - 02/13/2019 4:30 PM PDT CAROL [...] Testing performed | | | at [facility];[address] [place] [address];[place] [address] SPECIAL REQUESTS | | | R4ARM | | | Testing performed at [facility];[address] [place] [address];[place] [address] | | | GRAM STAIN GRAM POSITIVE COCCI | | | CALLED TO BRAYDEN ON | | | 6RP AT [id number] BY TR READ BACK RESULTS VERIFIED | | | GRAM POSITIVE COCCI AEROBIC BOTTLE | | | CALLED TO LUIS CARLOS | | | S ON 6RP AT [id number] BY TR READ BACK RESULTS VERIFIED | | | Testing performed at [facility] | | | [facility];[place] [address] CULTURE | | | STAPHYLOCOCCUS AUREUSAbnormal | | | GROWTH IN TWO OF TWO BOTTLESAbnormal | | | TIME TO DETECTION: 0.79 | | | DAYS Testing | | | performed at [facility], [address] [place] [address] | | | REPORT STATUS 10/11/2012 FINAL [...] Testing performed | | | at [facility];[address] [place] [address];[place] [address] SPECIAL REQUESTS | | | RAC | | | Testing performed at [facility];[address] [place] [address];[place] [address] | | | GRAM STAIN GRAM POSITIVE COCCI | | | SEEN ON SMEAR FROM ANAEROBIC BOTTLE | | | SMEAR RESULTS CALLED TO AND READ BACK BY: KARAN | | | Milton/6RP AT [phone] BY ND | | | GRAM POSITIVE COCCI AEROBIC BOTTLE | | | CALLED TO LUIS CARLOS Rose ON 6RP AT [id number] [id number] | | | BY TR READ BACK RESULTS VERIFIED | | | Testing performed at [facility];[address] [place] [address];[place], [place] | | | [address] CULTURE STAPHYLOCOCCUS | | | AUREUS REFER TO CULTURE [id number] COLLECTED THE SAME DAY FOR | | | SUSCEPTIBILITYAbnormal | | | GROWTH IN TWO OF TWO BOTTLESAbnormal | | | TIME TO DETECTION: 0.71 DAYS | | | Testing performed at [facility], [address] | | [place] [address] REPORT STATUS | | | 10/11/2012 FINAL [...] Palm - 02/13/2019 4:30 PM PDT CAROL TARIQXR ABDOMEN 1 VIEW10/06/2012 | | 11:43 AM [...] Testing performed | | | at [facility];[address] [facility];[place] [address] SPECIAL REQUESTS | | | L ARM | | | Testing performed at [facility];[address] [facility];[place] [address] | | | CULTURE NO GROWTH IN 5 DAYS. | | | Testing | | | performed at [facility];[address] [place] [address];[place] [address] REPORT STATUS | | | 10/10/2012 FINAL [...] Testing performed | | | at [facility];[address] [place] [address];[place] [address] SPECIAL REQUESTS | | | L HAND | | | Testing performed at [facility];[address] [place] [address];[place] [address] | | | CULTURE NO GROWTH IN 5 DAYS. | | | Testing | | | performed at [facility];[address] [place] [address];[place] [address] REPORT STATUS | | | 10/10/2012 FINAL [...] LAB | | C.diffAbnormal Testing performed at [facility];[address] [place] [address];[place], [place] | | | [phone] NAP1 BI 027 NAP1 BI | | | PRESUMPTIVE NEGATIVE Detection of 027 NAP1 BI strains of C. difficile | | | is presumptive and for epidemiological purposes and not intended to | | | guide or monitor treatment for C. difficile infections. Testing | | | performed at [facility];[address] [place] [address];[place] [address] | | + + + + +---------+ [...] + | Staphylococcus aureus bacteremia with sepsis ([facility]) Methicillin susceptible | | staphylococcus aureus septicemia [...]
--- OUTSIDE RECORDS SUMMARY | ~2019-12-30 | XMS | Encounter Summary ---
Demographics + + + | Address | [address] | | | [place] [address] | + + + | Home Phone | | + + + | Preferred Language | Unknown | + + + | Marital Status | Single | + + + | Jehovah'S Witness Affiliation | Unknown | + + + [...] Team Providers + +------+ + | Care Gym Attendant Name | Role | Phone | [...]
--- OUTSIDE RECORDS SUMMARY | ~2019-12-30 | XMS | Encounter Summary ---
Demographics + + + | Address | [address] | | | [place] [address] | + + + | Home Phone | | + + + | Preferred Language | Unknown | + + + | Marital Status | Unknown | + + + | Zoroastrian Affiliation | 1076 | + + + | Race | Unknown | + + + | Ethnic Group | Unknown | + + + Author + + + | Author | [facility] | | | and [place] | + + + | Organization | [facility] | | [...] Team Providers + +------+ + | Care Line Helper Name | Role | Phone | [...] | SR | | | | | [address] [facility] | | | | | | [place], [place] | | | | | | [address] | | | | | | [phone] | | | +--------+ + + + [...]
--- OUTSIDE RECORDS SUMMARY | ~2019-12-30 | XMS | Encounter Summary ---
Demographics + + + | Address | [address] | | | [place] [address] | + + + | Home Phone | | + + + | Preferred Language | Unknown | + + + | Marital Status | Unknown | + + + | Muslim Affiliation [...] Team Providers + +------+ + | Care Enologist Name | Role | Phone | + +------+ + PCP | Unavailable | + +------+ + Encounter Details +--------+ + + + + | Date | Type | Department | Care Team | Description | +--------+ + + + + | 02/03/ | Emergency | [facility] | No, Physician p | Patient left without | | 2017 | | [facility] | | being seen (Primary | | | | CENTER [address] | | Dx) | | | | [place], [place] | | | | | | [address] | | | | | | [phone] | | | +--------+ + + + [...] a small amount | | 0 | /20 | | | ointment | to affected [...] a small amount | | 0 | /20 | | | (XYLOCAINE JELLY) 2% | [...]
--- OUTSIDE RECORDS SUMMARY | ~2019-12-30 | XMS | Encounter Summary ---
Demographics + + + | Address | [address] | | | [place] [address] | + + + | Home Phone [...] Author + + + | Author | [facility] [employer] [facility] | + + + | Organization | [facility] [employer] [facility] | + + + | [...] Team Providers + +------+ + | Care Scheduling Agent Name | Role | Phone | + [...] [address] | | | | | [place] [place], | [place], [place] | | | | | [place] [address] | [address] | | | | | [phone] | | | +--------+ + + + [...] | | | | | determined by [employer] | | | | | | Laboratories. See | | | | | | Compliance Statement B: | | | | | | [employer]Soko/CSPerformed | | | | | | by [employer],[address] | | | | | | [place], [facility],[place] | | | | | | [address] | | | | | | [phone].[employer]. | | | | | | com, Mio Jauregui MD, | | | | | | Lab. Director | | | | + + + + + + | AMPHETAMINE | Negative | Cutoff 30 ng/mL | [facility] | | | S, S/P, | | [...] [facility] | [address] | [place], [place] | | | UNIV PTH - INTFC | | [address] | | + + + + + [...] | | | | | determined by [facility] | | | | | | Laboratories. See | | | | | | Compliance Statement B: | | | | | | [employer]/CSPerformed | | | | | | by [employer],[address] | | | | | | [facility] | | | | | | [address] | | | | | | [phone].[employer]. | | | | | | [facility] medical centerMio MD, | | | | | | Lab. Director | | | | + + + + + + | COTININE | <2 | ng/mL | [facility] | | | | | | REG [...] [facility] | [address] | [place], [place] | | | UNIV PTH - INTFC | | [address] | | + + + + + [...] [facility] | [address] | [place] [address] | | | SERVICES, CORE | SALVADOR [...] | + + + + + | [facility] | [address] | [place] [address] | | | SERVICES, SPECIAL | SALVADOR [...] [facility] | | | NIL | by [employer],[address] | | REG UNIV | | | | Josef Montoya [facility],[place] | | PTH - INTFC | | | | [address] | | | | | | [phone]. | | | | | | Mio [...] (http://www.cdc.gov/mmwr | | | | | | /preview/mmwrhtml/sn4392 | | | | | | a1.htm), [...] [facility] | [address] | [place], [place] | | | UNIV PTH - INTFC | | [address] | | + + + + + [...] by | | | | | | [employer],[address] | | | | | | Jsoef [place]oya, [facility],[place] | | | | | | [address] | | | | | | [phone].[employer]. | | | | | | sharlene, [...] [facility] | [address] | [place], [place] | | | UNIV PTH - INTFC | | [address] | | + + + + + [...] | | | | | | Laboratories,[address] [facility] | | | | | | [place] [address] | | | | | | [phone]. | | | | | | Mio [...] [facility] | [address] | [place], [place] | | | UNIV PTH - INTFC | | [address] | | + + + + + [...] | TESTING IS NOT INDICATED | | [place] | | | | OR USEFUL TO [...] + | [facility] | [address] | [place] [address] | | | [facility] | | | | + + + [...] by | | | | | | [employer],[address] | | | | | | Josef [place]oya, [facility],[place] | | | | | | [address] | | | | | | [phone].[employer]. | | | | | | Mio [...] [facility] | [address] | [place], [place] | | | UNIV PTH - INTFC | | [address] | | + + + + + [...] [facility] | [address] | [place] [address] | | | SERVICES, CORE | PARK [...] not detected. The performance of the | [facility] | | TECHNICAL SALES REPRESENTATIVES HIV Combo test, with or without confirmation, [...] | + + + + + | [facility] | [address] | [place] [address] | | | SERVICES, SPECIAL | PARK [...] [facility] | [address] | [place] [address] | | | SERVICES, CORE | PARK [...] [facility] | [address] | [place] [address] | | | SERVICES, ROSALINO | SALVADOR [...] | + + + + + | [facility] | [address] | [place] [address] | | | SERVICES, CORE | SALVADOR [...] + | [facility] | [address] | [place] [address] | | | [place] | | | | + + + [...] + | [facility] | [address] | [place] [address] | | | [place] | | | [...] by | | | | | | [employer],[address] | | | | | | Josef Montoya, [facility],[place] | | | | | | [address] | | | | | | [phone].[employer]. | | | | | | [facility] centerMio MD, | | | | [...] [facility] | [address] | [place], [place] | | | UNIV PTH - INTFC | | [address] | | + + + + + [...] by | | | | | | [employer],[address] | | | | | | [place] | | | | | | [address] | | | | | | [phone]. | | | | | | Mio [...] [facility] | [address] | [place], [place] | | | UNIV PTH - INTFC | | [address] | | + + + + + [...] | + + + + + | [facility] | [address] | [place] [address] | | | ROSALINO [facility] | SALVADOR [...] | [facility] | | | GRAVITY | [place] performed by | | LABORATORY | | [...] [facility] | [address] | [place] [address] | | | SERVICES, CORE | SALVADOR [...] [facility] | [address] | [place] [address] | | | SERVICES, ROSALINO | SALVADOR [...] [facility] | [address] | [place] [address] | | | [facility] | SALVADOR [...] [facility] | [address] | [place] [address] | | | SERVICES, CORE | PARK [...] | + + + + + | [facility] | [address] | [place] [address] | | | SERVICES, CORE | SALVADOR [...] LABORATORY | [address] | [place] [address] | | | SERVICES, CORE | PARK [...] | + + + + + | [facility] | [address] | [place] [address] | | | SERVICES, CORE | SALVADOR [...] [facility] | [address] | [place] [address] | | | SERVICES, CORE | PARK [...] [facility] | [address] | [place] [address] | | | SERVICES, CORE | PARK [...] | | | LABORATORY | | | IRISH | | | SERVICES, | | | [...] MDRD equation recommended by the National | [facility] | | Kidney Disease Education Program. [...] [facility] | [address] | [place] [address] | | | SERVICES, CORE | SALVADOR [...] + | [facility] - | [address], | [place] [address] | | | IMMUNOGENETICS/TRANS | [address] [...] + + | [facility] - | [address] | [place] [address] | | | IMMUNOGENETICS/TRANS | [address] [...] | [facility] - | [address] | [place] [address] | | | IMMUNOGENETICS/TRANS | [address] [...] [facility] - | [address] | [place] [address] | | | IMMUNOGENETICS/TRANS | [address] [...] - | [address] | [place], [place] | | | IMMUNOGENETICS/TRANS | [address] [...] - | [address] | [place], [place] | | | IMMUNOGENETICS/TRANS | [address] [...] [facility] - | [address], | [place], [place] | | | IMMUNOGENETICS/TRANS | [address] [...] + + | [facility] - | [address] | [place] [address] | | | IMMUNOGENETICS/TRANS | [address] [...] + + | [facility] - | [address] | [place] [address] | | | IMMUNOGENETICS/TRANS | [address] [...]
--- OUTSIDE RECORDS SUMMARY | ~2019-12-30 | XMS | Encounter Summary ---
Demographics + + + | Address | [address] | | | [place] [address] | + + + | Home Phone [...] Team Providers + +------+ + | Care Twister Hand Name | Role | Phone | + +------+ + | Andry Deng DO | PCP | | + +------+ + Encounter Details +--------+ + + + + | Date | Type | Department | Care Team | Description | +--------+ + + + + | 04/26/ | Orders Only | [facility] | Conversion | | | 2013 | | INFECTIOUS DISEASE | Transaction, | | | | | [address] | Provider Unknown | | | | | [place], [place] | [phone] | | | | | [phone] | (Fax) | | | | | [phone] | | | +--------+ + + + [...]
--- OUTSIDE RECORDS SUMMARY | ~2019-12-30 | XMS | Encounter Summary ---
Demographics + + + | Address | [address] | | | [place] [address] | + + + | Home Phone [...] Team Providers + +------+ + | Care Insulation Blanket Maker Name | Role | Phone | + +------+ + PCP | Unavailable | + +------+ + Encounter Details +--------+ + + + + | Date | Type | Department | Care Team | Description | +--------+ + + + + | 02/20/ | Emergency | [facility] | Trevor Bernal | Neck pain; C6 | | 2015 | | [facility]ICAL [facility]ENTER | [address] | cervical fracture, | | | | EMERGENCY CENTER | [address] | closed, initial | | | | [address] | [place], [place] | encounter ([facility]); | | | | [place], [place] | [address] | Bilateral hand pain | | | | [address] | [phone] | | | | | [phone] | | | +--------+ + + + [...] Provider Notes by Huan Martínez DO at 02/20/15 0849 Author: Haun Martínez DO Service: (none) Author Type: Physician Filed: 02/27/15 1240 Date of Service: 02/20/15 0849 Status: Signed Program Coordinator: Huan Martínez DO (Physician) [facility] Department of Emergency Medicine Pertinent History and Concerns: sent from [facility] C-6 wedge compression fx with re tropulsion, no neuro deficits, Steel on board, wants mri (02/20/15 0313 : Trevor Bernal DO) 8:49 AM 02/20/2015 History of Present Illness Patient Identification Enrique Potter is a 49 y.o. male. Patient information was obtained from patient. History/Exam limitations: none. Patient presented to the Emergency Department by: Ambulance (PCP: [facility].) Chief Complaint Chief complaint: Chief Complaint [...] sev ere. The pt was evaluated at [facility] where the CT scan revealed a C-6 [...] pain, right upper quadrant 04/13/2012 Dialysis patient ([facility]) GI bleed 04/30/2012 from coumadin Walker as ambulation aid Gout Asthma pt not using inhaler any more, no symptoms DVT (deep venous thrombosis) ([facility]) x3 AV fistula ([facility]) lt arm Knee pain, right 07/06/2012 MSSA (methicillin susceptible Staphylococcus aureus) infection 04/11/2012 Anemia due to blood loss 04/30/2012 Amphetamine and other psychostimulant dependence, continuous ([facility]) 04/02/2012 Hyperphosphatemia 05/24/2012 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 Rash and nonspecific skin eruption 04/03/2012 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[facility]) 05/01/2012 Neuromuscular disorder ([facility]) neuropathy Hyperkalemia 11/09/2013 Chronic obstructive asthma with exacerbation ([facility]) 10/27/2013 SOB (shortness of breath) 10/27/2013 Diabetes mellitus, type 2 ([facility]) Past Surgical History Procedure Laterality Date Colonoscopy with egd 05/01/2012 Procedure: COLONOSCOPY W/ EGD; Surgeon: John Singleton MD; Location: [facility]; Se rvice: Gastroenterology; Laterality: N/A; Av fistula placement 05/06/2012 Procedure: AV FISTULA; Surgeon: Oskar Meyer MD; Location: [facility]; Service: Vascul ar; Laterality: Left; Left arm possible right Unlisted procedure arthroscopy shoulder rt , ligaments Knee arthroscopy 07/07/2012 Procedure: KNEE - ARTHROSCOPY; Surgeon: Favio Raza MD; Location: [facility]; S ervice: Orthopedics; Laterality: Right; After 1530 Catheter removal 07/07/2012 Procedure: DIALYSIS CATHETER REMOVAL; Surgeon: Oskra Meyer MD; Location: [facility] DC OCEDURE; Service: General; Laterality: Right; perm cath Dialysis fistula creation 07/07/2012 Procedure: DIALYSIS CATHETER INSERTION; Surgeon: Oskar Meyer MD; Location: [facility] PROCEDURE; Service: General; Laterality: Left; temporary dialysis catheter Av fistula repair 07/11/2012 Procedure: AV FISTULA GRAFT REPAIR/REVISION; Surgeon: Oskar Meyer MD; Location: [facility]; Service: Vascular; Laterality: Left; Superficialization of brachiobasilic fistula and right IJ perm cath insertion Dialysis fistula creation 07/11/2012 Procedure: DIALYSIS CATHETER INSERTION; Surgeon: Oskar Meyer MD; Location: [facility]; Service: Vascular; Laterality: Left; removed dialysis catheter from left neck and placed new on in left chest, attempted in right neck but unable to place Av fistula placement Right 02/09/2014 Procedure: AV FISTULA; Surgeon: Oskar Meyer MD; Location: [facility]; Service: Vascul ar; Laterality: Right; Superficialization of av fistula Right 03/30/2014 Procedure: AV FISTULA - SUPERFICIALIZATION; Surgeon: Oskar Meyer MD; Location: [facility]; Service: Vascular; Laterality: Right; Prior [...] KIDS. CURRENTLY UNEMPLOYED, BEFOR E WORKED AT [email or web address]. Quit METHAMPHETAMINES PER PATIENT after t he [...] sore throat CV/Resp: Negative for chest pain, [id number], cough GI: Negative for abdominal pain, nausea, [...] well on the road test and after [place] is given to the patient. I advised the patient to follow up with Dr. Botello, ENT and his PCP. I advised the patient to RTER if there are any new or worsening symptoms. The patient unders tands and agrees with the plan. All questions and concerns addressed. MRI and CT reviewed wi Dr. Merchant. No active symptoms and currently ready for home. NO recent trauma other then as described with golnafisag the most recent saturday Filed Vitals: 02/20/15 0528 02/20/15 0704 02/20/15 0823 02/20/15 0917 BP: 144/71 135/80 131/71 133/78 Pulse: 79 78 78 79 Temp: 96.9 F (36.1 C) 97.1 F (36.2 C) 97.1 F (36.2 C) TempSrc: Oral Oral Oral Resp: 14 16 16 18 SpO2: 99% 98% 97% 98% Records Reviewed Old ED records reviewed (Using the electronic record system of [facility], I car efully reviewed the records with [...] for the most part fused with the pre owned sales manager fracture of the anterior inferior aspect of [...] Follow up With Details Comments Contact Info [facility] Emergency Department If symptoms worsen [address] [facility] [address] Barbara Engle MD For follow up [address] [facility] [address] [facility] In 2 days For follow up [address] [place] [address] Discharge Medications: Discharge Medication List as of 02/20/2015 9:35 AM START taking these medications Details HYDROcodone-acetaminophen (NORCO) 5-325 MG per tablet Take 1-2 tablets by mouth every 4 (fo ur) hours as needed for Pain., Starting 02/20/2015, Until Sat03/02/15, Print This document has been prepared with a voice recognition system. The possibility of "sound alike" pourer buggy ladle errors, addition and/or deletions may occur. If [...] ED Notes by Petrona Luna RN at 02/20/15536 Author: Petrona Luna RN Service: (none) Author Type: Registered Nurse Filed: 02/20/15536 Date of Service: 02/20/15536 Status: Signed Program Coordinator: Petrona Luna RN (Registered Nurse) Dr. Bernal at bedside Petrona Luna RN 02/20/15536 oung, Trevor Odom DO - 02/20/2015 5:35 AM PDT ED Provider Notes by Trevor Bernal DO at 02/20/1535 Author: Trevor Bernal DO Service: Emergency Department Author Type: Physician Filed: 02/20/152126 Date of Service: 02/20/15534 Status: Signed Program Coordinator: Trevor Bernal DO (Physician) [facility] Department of Emergency Medicine Pertinent History and Concerns: sent from [facility] C-6 wedge compression fx with re tropulsion, no neuro deficits, Steel on board, wants mri (02/20/15312 : Trevor Bernal DO) 5:35 AM History [...] was severe. The pt was evaluated at [facility] where the CT scan revealed a C-6 wedge c ompression fracture with retropulsion. Patient transferred here for an MRI. Dr. Merchant, neur osurgeon, is aware of patient. [facility] Specialists: Past Medical History Diagnosis Date Hyperlipidemia Hypertension Thyroid disease Anemia Abdominal pain, right upper quadrant 04/13/2012 Dialysis patient ([facility]) GI bleed 04/30/2012 from coumadin Walker as ambulation aid Gout Asthma pt not using inhaler any more, no symptoms DVT (deep venous thrombosis) ([facility]) x3 AV fistula ([facility]) lt arm Knee pain, right 07/06/2012 MSSA (methicillin susceptible Staphylococcus aureus) infection 04/11/2012 Anemia due to blood loss 04/30/2012 Amphetamine and other psychostimulant dependence, continuous ([facility]) 04/02/2012 Hyperphosphatemia 05/24/2012 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 Rash and nonspecific skin eruption 04/03/2012 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[facility]) 05/01/2012 Neuromuscular disorder ([facility]) neuropathy Hyperkalemia 11/09/2013 Chronic obstructive asthma with exacerbation ([facility]) 10/27/2013 SOB (shortness of breath) 10/27/2013 Diabetes mellitus, type 2 ([facility]) Past Surgical History Procedure Laterality Date Colonoscopy with egd 05/01/2012 Procedure: COLONOSCOPY W/ EGD; Surgeon: John Singleton MD; Location: [facility]; Se rvice: Gastroenterology; Laterality: N/A; Av fistula placement 05/06/2012 Procedure: AV FISTULA; Surgeon: Oskar Meyer MD; Location: [facility]; Service: Vascul ar; Laterality: Left; Left arm possible right Unlisted procedure arthroscopy shoulder rt , ligaments Knee arthroscopy 07/07/2012 Procedure: KNEE - ARTHROSCOPY; Surgeon: Favio Raza MD; Location: [facility]; S ervice: Orthopedics; Laterality: Right; After 1530 Catheter removal 07/07/2012 Procedure: DIALYSIS CATHETER REMOVAL; Surgeon: Oskar Meyer MD; Location: [facility] DC OCEDURE; Service: General; Laterality: Right; perm cath Dialysis fistula creation 07/07/2012 Procedure: DIALYSIS CATHETER INSERTION; Surgeon: Oskar Meyer MD; Location: [facility] PROCEDURE; Service: General; Laterality: Left; temporary dialysis catheter Av fistula repair 07/11/2012 Procedure: AV FISTULA GRAFT REPAIR/REVISION; Surgeon: Oskar Meyer MD; [facility]; Service: Vascular; Laterality: Left; Superficialization of brachiobasilic fistula and right IJ perm cath insertion Dialysis fistula creation 07/11/2012 Procedure: DIALYSIS CATHETER INSERTION; Surgeon: Oskar Meyer MD; Location: [facility]; Service: Vascular; Laterality: Left; removed dialysis catheter from left neck and placed new on in left chest, attempted in right neck but unable to place Av fistula placement Right 02/09/2014 Procedure: AV FISTULA; Surgeon: Oskar Meyer MD; Location: [facility]; Service: Vascul ar; Laterality: Right; Superficialization of av fistula Right 03/30/2014 Procedure: AV FISTULA - SUPERFICIALIZATION; Surgeon: Oskar Meyer MD; Location: [facility] OR; Service: Vascular; Laterality: Right; Prior [...] KIDS. CURRENTLY UNEMPLOYED, BEFOR E WORKED AT [email or web address]. Quit METHAMPHETAMINES PER PATIENT after t he [...] sore throat CV/Resp: Negative for chest pain, lyludnqli-bu-bsdeed, cough GI: Negative for abdominal pain, nausea, [...] reviewed (Using the electronic record system of [facility], I car efully reviewed the records with [...] stable when compared to the study f August 2012 2. The posterior longitudinal ligament [...] for the most part fused with the pre owned sales manager fracture of the anterior inferior aspect of [...] Information Follow up With Details Comments Contact [facility] Emergency Department If symptoms worsen [address] [facility] [address] Barbara Engle MD For follow up [address] [facility] [address] [facility] In 2 days For follow up [address] [place] [address] Discharge Medications: Discharge Medication List as of 02/20/2015 9:35 AM START taking these medications Details HYDROcodone-acetaminophen (NORCO) 5-325 MG per tablet Take 1-2 tablets by mouth every 4 (fo ur) hours as needed for Pain., Starting 02/20/2015, Until 03/02/15, Print Procedures Additional Documentation Procedures Attending Note: [...] Service: (none) Author Type: Registered Nurse Filed: 02/20/15 0539 Date of Service: 02/20/15525 Status: Addendum Program Coordinator: Petrona Luna RN (Registered Nurse) Related Notes: Original Note by Petrona Luna RN (Registered Nurse) filed at 5 0528 Per EMS: pt golfing and hit a rock on 02/13/15. Developed neck pain and tingling in his hand s last night. Had CT at [facility] showing stable C6 fracture. Had 2 hydrocodone/apap pil ls PO at 0145. Transfer from [facility], here for MRI. Petrona Luna RN 02/20/15 0528 Petrona Luna RN 02/20/15 0539 onver quique Transaction, Provider Unknown - 02/20/2015 5:26 AM PDT ED Notes by Hien España RN at 02/20/15525 Author: Hien España RN Service: (none) Author Type: Registered Nurse Filed: 02/20/15525 Date of Service: 02/20/15525 Status: Signed Program Coordinator: Hien España RN (Registered Nurse) Bed: 19 Expected date: Expected time: Means of arrival: Comments: [place]ard docume nted in this encounter Miscellaneous Notes Plan of Care - Shirley Merchant - 02/20/2015 8:48 AM PDT Plan of Care by Shirley Merchant MD at 02/20/15847 Author: Shirley Merchant MD Service: Neurosurgery Author Type: Physician Filed: 02/20/15854 Date of Service: 02/20/15847 Status: Signed Program Coordinator: Shirley Merchant MD (Physician) The patient's cervical spine CT and MRI do not demonstrate any acute fracture; the C6-7 fra cture region appears chronic. I do not recommend a cervical brace or steroid administration. The patient should F/U with his PCP. He may require F/U with a Neurologist for [facility] EMG/NCS or with a [facility] Neurosurgeon. documented in this en counter Plan [...] is not new from 2013 and is probably chronic. No | | [...] | the most part fused with the pre owned sales manager fracture of the anterior | | | [...] most | | part fused with the pre owned sales manager fracture of the anterior inferior aspect of [...] compared to | | prior imaging from 2013-not convincingly progressed. Axial image 102 series 102 [...] compared to | | the MRI from 2013. Posterior to the ligament is thickened but [...] is not new from 2013 and is probably chronic. | | No [...]
--- OUTSIDE RECORDS SUMMARY | ~2019-12-30 | XMS | Encounter Summary ---
Demographics + + + | Address | [address] | | | [place] [address] | + + + | Home Phone | | + + + | Preferred Language | Unknown | + + + | Marital Status | Unknown | + + + | Islam Affiliation [...] Team Providers + +------+ + | Care Aerial Crop Duster Name | Role | Phone | + +------+ + | Andry Deng DO | PCP | | + +------+ + Encounter Details +--------+ + + + + | Date | Type | Department | Care Team | Description | +--------+ + + + + | 07/07/ | Orders Only | [facility] | Oskar Meyer MD | | | 2012 | | [facility] | [address] | | | | | OPERATING RO[address] | [place], [place] | | | | | [address] | [address] | | | | | [place], [place] | [phone] | | | | | [address] | | | | | | [phone] | | | +--------+ + + + [...] documented as of this encounter Miscellaneous Notes Op Note - Oskar Meyer MD - 07/20/2012 1:10 PM PSTFormatting of this note might be differen t from the original. Op Note signed by Oskar Meyer MD at 07/23/12801 Author: Oskar Meyer MD Service: (none) Author Type: Physician Filed: 07/23/12801 Date of Service: 07/20/12 1310 Status: Signed Bean Roaster: Oskar Meyer MD (Physician) CAROL STANTON Date of : 1965 PREOPERATIVE DIAGNOSIS Infected tunneled dialysis catheter with bacteremia and end-stage renal disease. POSTOPERATIVE DIAGNOSIS Infected tunneled dialysis catheter with bacteremia and end-stage renal disease. PROCEDURES 1. Removal of tunneled right internal jugular Perma-Cath. 2. Placement of left internal jugular temporary dialysis catheter under ultrasound guidance. SURGEON Oskar Meyer MD EMS INSTRUCTOR None. ANESTHESIA Local. ESTIMATED BLOOD LOSS Minimal. INDICATIONS Mr. Carol Stanton is a 47-year-old gentleman who has been dialyzing via a right IJ tunneled dialysis catheter. However, the patient has positive blood cultures due to bacteremia. Vascular surgery was consulted for removal of the right IJ and placement of a temporary dialysis catheter until blood cultures were negative. Therefore, after consent was obtained, the patient was taken for this procedure. FINDINGS The right IJ Perma-Cath tip was sent for culture and sensitivity. Left IJ Perma-Cath placed under ultrasound guidance with good flush and withdrawal from all ports. A postoperative chest x-ray was then performed to confirm placement. DESCRIPTION OF PROCEDURE The patient was properly identified and brought to the procedure room. First, the right neck and chest were prepped and draped in the usual sterile fashion. Local anesthetic was then given to around the catheter site. Using a hemostat, the cuff was freed from the chest wall. Pressure was then applied to the right neck, and the catheter was easily removed from the right chest. The tip of the catheter was then removed and sent for culture and sensitivity. After holding pressure for 10 minutes, hemostasis was assured, and sterile dressing was then applied to the right chest. The left neck and chest were then prepped and draped in the usual sterile fashion. Local anesthetic was then given to the left neck. Under ultrasound guidance, the left internal jugular vein was accessed using a micropuncture needle. Once the micropuncture needle was used to obtain access, a micropuncture sheath was then placed, and a J-wire was then placed over the micropuncture sheath. Serial dilators were used to expand the internal jugular vein access site. Then the temporary dialysis catheter was advanced over the wire. After proper placement was marked, both ports were then aspirated with good return of blood and flushed with heparinized saline. The access ports were then instilled with concentrated heparin as indicated. The catheter was then sutured in place using 3-0 nylon sutures. Sterile dressings were then applied to the left temporary dialysis catheter. The patient tolerated the procedure well. There were no apparent complications. P/ P/gopal/[id number] OSKAR MEYER MD p Note - Oskar Meyer MD - 07/11/2012 5:35 PM PST Op Note signed by Oskar Meyer MD at 07/13/12 0953 Author: Oskar Meyer MD Service: (none) Author Type: Physician Filed: 07/13/12 0953 Date of Service: 07/11/12 1735 Status: Signed Bean Roaster: Oskar Meyer MD (Physician) CAROL STANTON Date of : 1965 PREOPERATIVE DIAGNOSIS End-stage renal disease and a fistula which is too deep to access. POSTOPERATIVE DIAGNOSIS End-stage renal disease and a fistula which is too deep to access. PROCEDURE 1. Superficialization of left arm brachiobasilic fistula. 2. Attempted right internal jugular access but right internal jugular was clotted. 3. Removal of left internal jugular dialysis catheter. 4. Placement of left internal jugular PermCath over a wire. SURGEON Oskar Meyer MD EMS INSTRUCTOR None. ANESTHESIA General endotracheal anesthesia. ESTIMATED BLOOD LOSS Less than 100 mL. FLUIDS Crystalloids 250 mL. INDICATIONS Mr. Carol Stanton is a 47-year-old gentleman with history of diabetes and end-stage renal disease who has been dialyzing via right IJ PermCath. He underwent a left arm brachiobasilic fistula creation due to need for long-term dialysis access. The fistula appeared to have matured well and he was scheduled to have the fistula superficialized. However the patient presented to the hospital early with bacteremia, therefore the right IJ PermCath was removed and a temporary left IJ catheter was placed. After the patient had negative blood cultures the patient was then taken to the operating room for the indicated procedures. FINDINGS The left arm basilic vein had multiple connections to the brachial vein. After ligation of the branches and superficialization there was a good thrill in the arm at the end of the case. The right IJ was attempted to be accessed with ultrasound however there was clot seen in the right internal jugular vein and I was unable to pass a wire into the jugular vein. Therefore a wire was placed down the left IJ catheter was then removed and a new tunneled catheter was then placed into the left internal jugular vein over the wire. The tip of the catheter was then at the SVC atrial junction. DESCRIPTION OF PROCEDURE The patient was properly identified and brought to the operating room. The patient was placed supine on the operating table and general endotracheal anesthesia was induced. The patient's left arm and chest and right neck was then prepped and draped in the usual sterile fashion. A long incision was then made the basilic vein and the basilic vein was dissected. There were multiple attachments seen from the basilic vein on to the brachial vein. These were ligated between 3-0 silk sutures. After the basilic vein was freed and dissected, a skin flap was then raised and the basilic vein was then placed under the skin flap and the skin flap was then closed using 3-0 Vicryl sutures. The wound was then irrigated and a 7 mm CRISTI was then placed into the deep wound bed. The deep tissues were then closed with 2-0 Vicryl and the deep dermal tissue was closed with 3-0 Vicryl. The skin was then closed with 4-0 Monocryl in subcuticular fashion. The basilic vein, once superficialized, had a good thrill in the left upper arm. A 3-0 nylon suture was then used to secure the CRISTI in place. We then proceeded to access the right IJ under ultrasound guidance. The needle was found to easily access the right IJ however the IJ was filled with thrombus and the IJ was not compressible. An attempt was made to pass the wire into the right IJ but this was unsuccessful. Therefore we decided to place a tunneled catheter into the left internal jugular vein. The patient already had a prior left internal jugular catheter. A wire was placed over the catheter and the catheter was removed. Next the PermCath was then tunneled subcutaneously from the left chest to the left neck. Serial dilators were then used over the wire and an introduce was then placed. The PermCath was then placed into the introducer with the tip of the catheter being placed at the SVC, right atrial junction. The introducer was then removed and the left neck skin incision site was then closed with 4-0 Monocryl. The catheter was then easily withdrawn and flushed with heparinized saline. The catheter was then instilled with 1.8 mL and 1.7 mL of concentrated heparin accordingly. Nylon 3-0 suture was then used to secure the catheter in place and sterile dressings were then placed. Fluoroscopy was used to verify that the tip of the catheter was in the correct position. At the end of the case sponge, needle, and instrument counts were correct x2. There were no apparent complications. The patient was then taken to the PACU in stable condition. P/ P//[id number] OSKAR MEYER MD documented in this encoun ter Plan of [...] | Testing performed at | | | [facility];[address] [facility];[place] [address] CULTURE | | | <10,000 CFU/ML MIXED GRAM POSITIVE AND GRAM NEGATIVE | | | POWER NO SUSCEPTIBILITY TO FOLLOW | | | Testing performed at [facility], [address] [facility], | | | [place] [address] REPORT STATUS | | | 07/12/2012 FINAL [...] | Testing performed at | | | [facility];[address] [facility];[place] [address] GRAM STAIN | | | 2+ WBC'S SEEN | | | NO ORGANISMS SEEN | | | Testing performed at [facility];[address] [facility];[place] [address] | | | CULTURE 1+ STAPHYLOCOCCUS | | | AUREUSAbnormal | | | Testing performed at [facility], [address], [place] | | | [address] REPORT STATUS 07/11/2012 | | | FINAL [...] EXTERNAL LAB | | Testing performed at [facility];[address] [facility];[place] [address] COLOR | | | PALE YELLOW Testing performed | | | at [facility];[address] [facility];[place] [address] APPEARANCE | | | CLOUDY Testing performed at [facility];[address] | [address];[place] [address] RBC'S | | | [address] Testing performed at [facility];[address] [facility];[place], [place] | | | [address] TOTAL NUCLEATED CELLS [address] | | | Testing performed at [facility];[address] [facility];[place] [address] NEUTROPHILS | | | 100 Testing performed | | | at [facility];[address];[place] [address] CELLS COUNTED | | | 100 Testing performed at [facility];[address] [facility] | | | Bl;[place] [address] | | + + + + +---------+ [...] TIP Testing | | | performed at [facility];[address] [facility];[place] [address] CULTURE | | | GREATER THAN FIFTEEN COLONY FORMING | | | UNITS OF STAPHYLOCOCCUS AUREUSAbnormal | | | Testing performed at [facility], [address] [place] [address] | | | [facility], [place] [address] REPORT STATUS | | | 07/10/2012 FINAL [...] | Testing performed | | | at [facility];[address] [facility];[place] [address] GRAM STAIN | | | WBC'S SEEN NO ORGANISMS SEEN ON CYTOSPIN SLIDE | | | PHONED TO DR TRAN | | | AT 0045 BY LJ READBACK | | | Testing performed at [facility];[address] [facility];[place] [address] | | | CULTURE NO GROWTH 4 DAYS | | | Testing performed at | | | [facility], [address] [place] [address] REPORT STATUS | | | 07/11/2012 FINAL [...] CONSULT Testing performed at | | | [facility];[address] [facility];[place] [address] | | + + + + +---------+ [...] | Testing performed | | | at [facility];[address] [place] [address];[place] [address] GRAM STAIN | | | WBC'S SEEN GRAM NEGATIVE COCCI ON CYTO SPIN SLIDE | | | PHONED TO | | | CHELSEA AT 0045 BY LJ READBACK | | | REVIEW OF SMEAR BY MICROBIOLOGY SHOWS THE FOLLOWING: NO | | | ORGANISMS SEEN | | | Testing performed at [facility], [address] [place] [address] | | | [address] CULTURE 1+ | | | STAPHYLOCOCCUS AUREUS SUSCEPTIBILITY TO FOLLOWAbnormal | | | Testing performed at [facility], [facility] | | | [place] [address] REPORT STATUS | | | 07/10/2012 FINAL [...]
--- OUTSIDE RECORDS SUMMARY | ~2019-12-30 | XMS | Encounter Summary ---
Demographics + + + | Address | [address] | | | [place] [address] | + + + | Home Phone [...] Team Providers + +------+ + | Care Kst Operator Name | Role | Phone | + +------+ + | Andry Deng DO | PCP | | + +------+ + Encounter Details +--------+ + + + + | Date | Type | Department | Care Team | Description | +--------+ + + + + | 05/31/ | Orders Only | [facility] | Conversion | | | 2013 | | INFECTIOUS DISEASE | Transaction, | | | | | [address] | Provider Unknown | | | | | [place], [place] | [phone] | | | | | [address] | | | | | | [phone] | | | +--------+ + + + [...]
--- OUTSIDE RECORDS SUMMARY | ~2019-12-30 | XMS | Encounter Summary ---
Demographics + + + | Address | [address] | | | [place] [address] | + + + | Home Phone [...] Team Providers + +------+ + | Care Cream Buyer Name | Role | Phone | + +------+ + PCP | Unavailable | + +------+ + Encounter Details +--------+ + + + + | Date | Type | Department | Care Team | Description | +--------+ + + + + | 01/30/ | Hospital | [facility] | Conversion | Pain | | 2012 | Encounter | CONVERSION DEP [address] | Transaction, | | | | | [address] | Provider Unknown | | | | | [place], [place] | | | | | | [address] | (Fax) | | | | | [phone] | | | +--------+ + + + [...] Procedure Note | + + | Khalif aPlm - 02/13/2019 4:30 PM PDT This is a non-reportable procedure | | without a radiologist report and isused for image storage only | + + documented in this encounter Visit Diagnoses + + | Diagnosis | + + | Pain Generalized pain | + + documented in this encounter"
--- OUTSIDE RECORDS SUMMARY | ~2019-12-30 | XMS | Encounter Summary ---
Demographics + + + | Address | [address] | | | [place] [address] | + + + | Home Phone | | + + + | Preferred Language | Unknown | + + + | Marital Status | Unknown | + + + | Baptism Affiliation | [id number] | + + + | Race | Unknown | + + + | Ethnic Group | Unknown | + + + Author + + + | Author | [facility] | | | and [place] | + + + | Organization | [facility] | | [...] Providers + +------+ + | Care Customer Acquisition Manager Name | Role | Phone | + +------+ + | Andry Deng DO | PCP | | + +------+ + Encounter Details +--------+ + + + + | Date | Type | Department | Care Team | Description | +--------+ + + + + | 08/27/ | Orders Only | [facility] | Franklyn Malin MD | | | 2017 | | VASCULAR SURGERY | [address] | | | | | ULTRAS[address] | [place], [place] | | | | | [address] | [address] | | | | | [place], [place] | | | | | | [address] | | | | | | [phone] | | | +--------+ + + + [...]
--- OUTSIDE RECORDS SUMMARY | ~2019-12-30 | XMS | Encounter Summary ---
Demographics + + + | Address | [address] | | | [place] [address] | + + + | Home Phone [...] Providers + +------+ + | Care Production Supervisor Off Shift Name | Role | Phone | + +------+ + PCP | Unavailable | + +------+ + Encounter Details +--------+ + + + + | Date | Type | Department | Care Team | Description | +--------+ + + + + | 04/29/ | Hospital | [facility] | Conversion | | | 2014 | Encounter | [facility] | Transaction, | | | | | OUTPATIENT | Provider Unknown | | | | | PROCEDURES [address] | | | | | | [address] | (Fax) | | | | | [place], [place] | | | | | | [address] | | | | | | [phone] | | | +--------+ + + + [...]
--- OUTSIDE RECORDS SUMMARY | ~2019-12-30 | XMS | Encounter Summary ---
Demographics + + + | Address | [address] | | | [place] [address] | + + + | Home Phone | | + + + | Preferred Language | Unknown | + + + | Marital Status | Single | + + + | Yazidism Affiliation | Unknown | + + + | Race | or | + + + | Ethnic Group | Not or | + + + Author + + + | Author | [facility] [employer] [facility] | + + + | Organization | [facility] [employer] [facility] | + + + | Address | [...] Team Providers + +------+ + | Care Jamb Cutter Name | Role | Phone | + [...] | Cardiology | Diagnoses | [place], | [place] | | | | | Type 2 | Makenna Wiley RN | Health & | | | | | diabetes | [address] | [facility] | | | | | mellitus | [place] | [address] [facility] | | | | | with ESRD | [address] | [address] | | | | | (end-stage | [place], [place] | ROAD | | | | | renal | [address] | [place], [place] | | | | | disease) | | [address] | | | | | (HCC) | | Phone: | | | | | Procedures | | [phone] | | | | | TRANSTHORACI | [...] | Radiology | Diagnoses | [place], | [place] | | | | | Type 2 | Makenna Wiley RN | Health & | | | | | diabetes | [address] | [employer] | | | | | mellitus | [place] | [address] | | | | | with ESRD | [address] | [address] | | | | | (end-stage | [place], [place] | ROAD | | | | | renal | [address] | [place], [place] | | | | | disease) | | [address] | | | | | (HCC) | | Phone: | | | | | Procedures | | [phone] | | | | | [place] | [...] eval) | | | | [address] [place], | [place], [place] | | | | | [place] [address] | [address] | | | | | [phone] | | | +--------+ + + + [...] 01/22/2021 | | | | | disease) ([facility]) | | + +---------+--------+ + + | TRANSTHORACIC | ECG | Routin | Type 2 diabetes | Ordered: 12/23/2019 | | ECHOCARDIOGRAM, | | e | mellitus with ESRD | | | ADULT | | | (end-stage renal | | | | | | disease) ([facility]) | | + +---------+--------+ + + | 12 LEAD ECG | ECG | Routin | Type 2 diabetes | Expected: 12/23/2019 | | | | e | mellitus with ESRD | | | | | | (end-stage renal | | | | | | disease) ([facility]) | | + +---------+--------+ + + | X-RAY CHEST 2 VIEW | Imaging | Routin | Type 2 diabetes | Expected: 01/27/2020 | | | | e | mellitus with ESRD | (Approximate), | | | | | (end-stage renal | Expires: 01/22/2021 | | | | | disease) ([facility]) | | + +---------+--------+ + + | US ABDOMEN COMPLETE | Imaging | Routin | Type 2 diabetes | Expected: 01/27/2020 | | | | e | mellitus with ESRD | (Approximate), | | | | | (end-stage renal | Expires: 01/22/2021 | | | | | disease) ([facility]) | | + +---------+--------+ + + | X-RAY PELVIS 1 VIEW | Imaging | Routin | Type 2 diabetes | Expected: 01/27/2020 | | | | e | mellitus with ESRD | (Approximate), | | | | | (end-stage renal | Expires: 01/22/2021 | | | | | disease) ([facility]) | | + +---------+--------+ + + documented [...]
--- OUTSIDE RECORDS SUMMARY | ~2019-12-30 | XMS | Encounter Summary ---
Demographics + + + | Address | [address] | | | [place] [address] | + + + | Home Phone [...] + + | Author | [facility] | | | and [place] | + + + | Organization | [facility] | | | [...] Team Providers + +------+ + | Care Band Saw Marker Name | Role | Phone | + +------+ + PCP | Unavailable | + +------+ + Encounter Details +--------+ + + + + | Date | Type | Department | Care Team | Description | +--------+ + + + + | 12/29/ | Hospital | [facility] | Conversion | ESRD (end stage | | 2014 | Encounter | CENTER [facility] | Transaction, | renal disease) ([facility]) | | | | [address] | Provider Unknown | | | | | [place], [place] | [phone] | | | | | [address] | | | | | | [phone] | Juan Timmons MD | | | | | | [address] | | | | | | [address] [place], [place] | | | | | | [address] | | | | | | | [...] documented as of this encounter H&P Notes Bhanu Lee MD, MD - 12/29/2013 2:36 PM PDTFormatting of this note might be diffe rent from the original. H&P by Priscilla Lee MD at 12/29/13 1436 Author: Priscilla Lee MD Service: Interventional Radiology Author Type: Physician Filed: 12/29/13 1455 Date of Service: 12/29/13 1436 Status: Signed Supervisor Pig Machine: Priscilla Lee MD (Physician) [facility] Service: Interventional Radiology Admission History & Physical Date of Admission: 12/29/2013 Reason for Admission: Non funcitonign catheter History Obtained From: patient CHIEF COMPLAINT: Need functioning access. HISTORY OF PRESENT ILLNESS The patient is a 48 y.o. male with significant past medical history of ESRD who presents w ith Non functioning catheter placed 1 week ago. REVIEW OF SYSTEMS Review of Systems - Negative except as noted above Past Medical History Diagnosis Date Hyperlipidemia Hypertension [...] W/ EGD; Surgeon: John Singleton MD; Location: [facility] ENDOSCOPY; Se rvice: Gastroenterology; Laterality: N/A; Av fistula placement 05/06/2012 Procedure: AV FISTULA; Surgeon: Oskar Meyer MD; Location: [facility] MAIN OR; Service: Vascul ar; Laterality: Left; Left arm possible right Unlisted procedure arthroscopy shoulder rt , ligaments Knee arthroscopy 07/07/2012 Procedure: KNEE - ARTHROSCOPY; Surgeon: Favio aRza MD; Location: [facility] MAIN OR; ervice: Orthopedics; Laterality: Right; After 1530 Catheter removal 07/07/2012 Procedure: DIALYSIS CATHETER REMOVAL; Surgeon: Oskar Meyer MD; Location: [facility] BEDSIDE RI OCEDURE; Service: General; Laterality: Right; perm cath Dialysis fistula creation 07/07/2012 Procedure: DIALYSIS CATHETER INSERTION; Surgeon: Oskar Meyer MD; Location: [facility] BEDSIDE PROCEDURE; Service: General; Laterality: Left; temporary dialysis catheter Av fistula repair 07/11/2012 Procedure: AV FISTULA GRAFT REPAIR/REVISION; Surgeon: Oskar Meyer MD; Location: [facility] OR; Service: Vascular; Laterality: Left; Superficialization of brachiobasilic fistula and right IJ perm cath insertion Dialysis fistula creation 07/11/2012 Procedure: DIALYSIS CATHETER INSERTION; Surgeon: Oskar Meyer MD; Location: [facility] OR; Service: Vascular; Laterality: Left; [...] needed. I ndications: Pain Yes Historical Provider albuterol (ACCUNEB) 1.25 MG/3ML nebulizer solution Take 3 mLs by nebulization every 4 (four ) hours as needed for Wheezing. 5/7/14 5/7/15 Yes Karri Huff MD albuterol (PROVENTIL HFA) 108 (90 BASE) MCG/ACT inhaler Inhale 2 puffs into the lungs every 4 (four) hours as needed for Wheezing. 10/28/13 10/28/14 Yes Karri Huff MD allopurinol (ZYLOPRIM) 100 MG [...] 2 (two) times daily. Yes CLARENCE Earl fluticasone-salmeterol (ADVAIR DISKUS) 250-50 [...] mg by mouth daily. Yes Historical Provider predniSONE (DELTASONE) 20 MG tablet Take 20 mg by mouth daily with breakfast. Yes Histori herminia Provider sevelamer (RENVELA) 800 MG tablet Take 2,400 mg by mouth 3 (three) times daily with meals. Yes Historical Provider sevelamer (RENVELA) 800 MG tablet Take 800 mg by mouth as needed. With snacks Yes CLARENCE Encarnacion sodium bicarbonate 650 MG tablet Take 1,300 mg by mouth 2 (two) times daily. Yes Histor ical Provider Family History Problem Relation Age of [...] KIDS. CURRENTLY UNEMPLOYED, BEFOR E WORKED AT [employer] IN [employer]. Quit METHAMPHETAMINES PER PATIENT after t he ARF in mar 2012. FATHER HAS COLON CANCER, HEART DISEASE, MOTHER 15 YEARS AGO. NO FH KIDNEY PROBLEMS. PHYSICAL EXAM Vital Signs: Blood pressure 128/62, pulse 82, resp. rate 16, SpO2 95.00%. BP: (128)/(62) 128/62 mmHg (12/29 1430) Heart Rate: [82] 82 (12/29 1430) Resp: [16] 16 (12/29 1430) SpO2: [95 %] 95 % (12/29 1430) General appearance: alert, appears stated age and [...] bowel sounds normal; no masses, no organomegaly Neurologic: Grossly normal DATA CBC: Lab Results Component Value Date WBC 7.9 12/23/2013 RBC 3.70* 12/23/2013 HGB 11.6* 12/23/2013 HCT 34.8* 12/23/2013 MCV 93.9 12/23/2013 MCH 31.4 12/23/2013 MCHC 33.5 12/23/2013 RDW 48.1 12/23/2013 PLT 257 12/23/2013 MPV 6.5 12/23/2013 DIFFTYPE AUTOMATED 12/23/2013 BMP: Lab Results Component Value Date NA 130* 12/23/2013 K 3.5 12/23/2013 CL 88* 12/23/2013 CO2 30 12/23/2013 ANIONGAP 16 12/23/2013 GLUF 101* 12/23/2013 BUN 37* 12/23/2013 CREATININE 9.47* 12/23/2013 BCR 4 12/23/2013 CA 8.2* 12/23/2013 CA 6.1* 04/02/2012 EGFR 6* 12/23/2013 PT/INR: Lab Results Component Value Date INR 1.0 12/23/2013 PTT: Lab Results Component Value Date APTT 28 12/23/2013 [APTT Fibrinogen Level: No results found for this basename: FIBRINOGEN PROBLEM LIST Active Problems: * No active hospital problems. * ASSESSMENT & PLAN 48 yr old with non funcitoning dialysis catheter Needs exchange. Informed written consent obtained after explaining the procedure, risks (bleeding, infectio n and recurrent non funciton ) and alternative options. Patient understood the discussion an d expressed a wish to proceed. Moderate Sedation Presedation Assessment completed. ASA Classification: ASA 3: Patient with a severe systemic disease Mallampati Classification: II: Visibility of hard and soft palate, upper portion of tonsil s and uvula Code Status: Prior Primary Care Physician: [facility] PRISCILLA LEE MD 12/29/2013 2:36 PM documented i n this encounter Plan [...] | in left upper chest for new, 14.5-Serbian, dual lumen, 27 cm tunneled | | | dialysis catheter over a wire under fluoroscopy guidance without | | | incidence. [id number] upper the uppermost | | + + + + + + | Narrative | Performed At | + + + | [facility] TUNNELED CATHETER REPLACEMENT SAME ACCESS 12/29/2013 [...] | under fluoroscopy guidance. New, 27 cm 14.5-Serbian, dual-lumen | | | tunneled the catheter [...] left upper chest | | | shows 14.5-Serbian, 27 dual-lumen tunneled dialysis catheter with its | | | tip in the upper right atrium. | | + + + + + | Procedure Note | + + | Néstor, Rad Conversion - 02/06/2019 10:59 AM PDT [facility] T[facility]NELED [facility]HETER | | REPLACEMENT SAME ACCESS12/29/2013 [...] cava under fluoroscopy guidance. New, 27 cm 14.5-Serbian, dual-lumen tunneled the | | catheter was [...] the left upper | | chest shows 14.5-Serbian, 27 dual-lumen tunneled dialysis catheter with its tip in the | | upper right atrium. IMPRESSION: Successful exchange of the nonfunctioning tunneled | | dialysis catheter in left upper chest for new, 14.5-Serbian, dual lumen, 27 cm tunneled | | dialysis catheter over a wire under fluoroscopy guidance without incidence. [id number] upper | | the uppermost | | | |IMPRESSION: | |Successful exchange of the nonfunctioning tunneled dialysis catheter in left upper chest fo r new, 14.5-Serbian, dual lumen, 27 cm tunneled dialysis catheter over a wire under fluorosco py guidance without incidence. | | | |[id number] upper the uppermost | | | | | + + documented in this encounter Visit Diagnoses + + | Diagnosis | + + | ESRD (end stage renal disease) (HCC) End stage renal disease | + + documented in this encounter
--- OUTSIDE RECORDS SUMMARY | ~2019-12-30 | XMS | Encounter Summary ---
Demographics + + + | Address | [address] | | | [place] [address] | + + + | Home Phone | | + + + | Preferred Language | Unknown | + + + | Marital Status | Single | + + + | Mandaen Affiliation | Unknown | + + + | Race | or | + + + | Ethnic Group | Not or | + + + Author + + + | Author | [facility] | + + + | Organization | [facility] [employer] [facility] | + + + | Address | [...] Team Providers + +------+ + | Care Medication Coordinator Name | Role | Phone | [...] | | | | | Physician's | [place], [place] | | | | | Denise, [facility] | [address] | | | | | [place], [place] | [phone] | | | | | [address] | | | | | | [phone] | | | +--------+ + + + [...]
--- OUTSIDE RECORDS SUMMARY | ~2019-12-30 | XMS | Encounter Summary ---
Demographics + + + | Address | [address] | | | [place] [address] | + + + | Home Phone | | + + + | Preferred Language | Unknown | + + + | Marital Status | Single | + + + | Buddhism Affiliation | Unknown | + + + | Race | or | + + + | Ethnic Group | Not or | + + + Author + + + | Author | [facility] [employer] [facility] | + + + | Organization | [facility] [employer] [facility] | + + + [...] Team Providers + +------+ + | Care Gaming Manager Name | Role | Phone | [...] | | | | | Physician's | [place], [place] | | | | | Denise, [facility] floor | [address] | | | | | [place], [place] | [phone] | | | | | [address] | | | | | | [phone] | | | +--------+ + + + [...]
--- OUTSIDE RECORDS SUMMARY | ~2019-12-30 | XMS | Encounter Summary ---
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 [facility];[address] [place] [address] 98620 CULTURE NO GROWTH AT THIS TIME CULTURE Result: Testing performed at [facility], [address], [place] [address] REPORT STATUS PENDING C diff toxin by PCR (TAT 3 hr in house) [[id number]] Collected:07/07/12 175 Order Status:Completed Updated:07/07/12 1904 Specimen Information:Stool / Stool Toxigenic C Difficile NEGATIVE Comment: Testing performed at [facility];[address] [place] [address]29 027 NAP1 BI 027 NAP1 BI PRESUMPTIVE NEGATIVE Comment: Detection of 027 NAP1 BI strains of C. difficile is presumptive and for epidemiological purposes and not intended to guide or monitor treatment for C. difficile infections. Testing performed at [facility];[address] [place] [address] 44161 Fecal occult blood (in house) [[id number]] Collected:07/07/12 175 Order Status:Completed Updated:07/07/12 1828 Specimen Information:Stool Fecal Occult Blood NEGATIVE Comment: Testing performed at [facility];[address] [place] [address] 74033 MRSA by PCR [[id number]] Collected:07/07/12 1048 Order Status:Completed Updated:07/07/12 1211 Specimen Information:Nasopharyngeal / Nasopharyngeal Culture SOURCE NARES(NOSE) Comment: Testing performed at [facility];[address] [place] [address] 44337 RESULT NEGATIVE Comment: Testing performed at [facility];[address] [place] [address] 33788 Catheter tip culture Abnormal Status: Preliminary result MyChart: Not Released Component Value Flag Specimen Description OTHER DIALYSIS CATHETER TIP Specimen Description Testing performed at [facility];[address] [place] [address] 42692 CULTURE GREATER THAN 15 CFU STAPHYLOCOCCUS AUREUS SUSCEPTIBILITY TO FOLLOW A CULTURE Testing performed at [address] [address] REPORT STATUS PENDING Order Details View Encounter [...] RIGHT KNEE Specimen Description Testing performed at [facility];[address] [place] [address] 55548 GRAM STAIN WBC'S SEEN GRAM NEGATIVE COCCI ON CYTO SPIN SLIDE GRAM STAIN PHONED TO DR RAZA AT 0045 BY LJ READBACK GRAM STAIN REVIEW OF SMEAR BY MICROBIOLOGY SHOWS THE FOLLOWING: NO ORGANISMS SEEN GRAM STAIN Testing performed at [address] [address] CULTURE 1+ STAPHYLOCOCCUS AUREUS SUSCEPTIBILITY TO FOLLOW A CULTURE Testing performed at [address] [address] REPORT STATUS PENDING Order Details View Encounter Lab and Collection Details Routing Result History Specimen Collected: 07/06/12 11:08 PM Last Resulted: 07/08/12 6:23 PM Encounter View Encounter Result Information Abnormal Status: Preliminary result (07/08/2012 6:23 PM) Provider Status: Ordered FLUID CULT W/GRAM STAIN Status: Preliminary result MyChart: Not Released Component Value Specimen Description SYNOVIAL FLUID R KNEE Specimen Description Testing performed at [facility];[address] [place] [address] 55[address] SPECIAL REQUESTS [facility] TO DO GRAM SPECIAL REQUESTS Testing performed at [facility];[address] [place] [address] 20469 GRAM STAIN 2+ WBC'S SEEN GRAM STAIN NO ORGANISMS SEEN GRAM STAIN Testing performed at [facility];[address] [place] [address] 59366 CULTURE CULTURE IN PROGRESS CULTURE Testing performed at [address] [address] REPORT STATUS PENDING Order Details View Encounter Lab and Collection Details Routing Result History Specimen Collected: 07/07/12 6:39 PM Last Resulted: 07/08/12 4:08 PM Encounter View Encounter Result Information Status Preliminary result (07/08/2012 4:08 PM) Provider Status: Ordered Hepatitis B surface antigen Status: Final result MyChart: Not Released Value Range HEP B SURFACE AG NON REACTIVE NON REACTIVE Comments: Testing performed at [facility], [address] [place] [address] Lab Flowsheet Order Details View Encounter Lab and Collection Details Routing Result History Specimen Collected: 07/07/12 3:13 PM Last Resulted: 07/07/12 6:37 PM Encounter View Encounter Result Information Status Final result (07/07/2012 6:37 PM) Provider Status: Ordered Radiology Results (last 7 days) Procedure Component Value Units Date/Time X-ray chest 1 view [[id number]] Collected:07/07/12 1630 Order Status:Completed Updated:07/07/12 1636 Narrative: [...] 2. No pneumothorax. hip left without contrast [[id number]] Resulted:07/07/12 1614 Order Status:Completed Updated:07/07/12 1615 Narrative: [...] 2012 4:14PM MRI hip right without contrast [[id number]] Resulted:07/07/121613 Order Status:Completed Updated:07/07/121613 Narrative: MRI OF [...] 07 2012 4:14PM X-ray knee limited right [[id number]] Collected:07/07/12 0845 Order Status:Completed Updated:07/07/12 0853 Narrative: HISTORY: Right knee pain. COMPARISON: None. [...] the medial femoral condyle. X-ray ankle left [[id number]] Collected:07/07/1244 Order Status:Completed Updated:07/07/12850 Narrative: HISTORY: Left ankle pain. COMPARISON: None. TECHNIQUE: AP, oblique, lateral films left ankle. FINDINGS: There is moderate diffuse soft tissue swelling about the ankle. Ankle mortise appears inta ct. No ankle fracture is seen. Arterial calcification extends into the distal foot. IMPRESSION: 1. Moderate soft tissue swelling about the ankle, without fracture. Chest PA and Lateral [[id number]] Collected:07/07/12827 Order Status:Completed Updated:07/07/12836 Narrative: CAROL TARIQ XR CHEST 2 VIEW FRONTAL AND [...] fied. brain wo contrast and MRA head [[id number]] Resulted:07/07/1235 Order Status:Completed Updated:07/07/12735 Narrative: MRI OF THE BRAIN WITHOUT CONTRAST PLUS [place] MRA 07/06/2012 HISTORY: Staphylococcal bacteremia. Clinical concern for septic embolization and stroke. COMPARISON: None. TECHNIQUE: 3-D dwap-io-ralbre [place] MRA with multiprojectional 3-D MIP [...] matter disease if any is minimal. The [place] MRA shows no evidence for high-grade stenosis, central vessel occlusio n or [place] saccular aneurysm. Posterior communicating arteries [...] anges or metabolic process. 3. Unremarkable screening [place] MRA. 4. Maxillary sinus mucosal [...] Status: Full Code ELSIE LERNER MD 07/09/2012 rownAl DO - 07/09/2012 9:21 AM PST Progress Notes by Al Coon DO at 07/09/12920 Author: Al Coon DO Service: (none) Author Type: Physician Filed: 07/09/12922 Date of Service: 07/09/12920 Status: Signed Vice Chancellor: Al Coon DO (Physician) [facility] Service: Hospitalist Progress Note Hospital Day: LOS: [...] mg Intravenous See Admin Instructions vitamin B hyczobt-L-uktff acid 1 tablet Oral Daily with breakfast [...] C) Oral 78 20 98 % - 07/08/122041 110/57 mmHg 98.5 F (36.9 C) Oral [...] d. Procedure: RONY was done at the [facility] in the fasting state. Informed consent was [...] 07/09/12841 Date of Service: 07/09/12839 Status: Signed Vice Chancellor: Oskar Meyer MD (Physician) Patient tentatively on schedule for superficialization of left brachibasilic fistula on Sat pending negative blood cultures drawn yesterday. I will also place a new right IJ perma cath at that time. Will need to be NPO after midnight on . Oskar Meyer MD 07/09/2012 Chela Lima RPH - 07/09/2012 8:14 AM PST Progress Notes by Chela Varela RPH at 07/09/12813 Author: Chela Varela RPH Service: (none) Author Type: Pharmacist Filed: 07/09/12816 Date of Service: 07/09/12813 Status: Signed Vice Chancellor: Chela Varela RPH (Pharmacist) Clinical Pharmacy Note - Renal Dose Adjustment Vancomycin dose was given ~1200 yesterday (not charted, but empty bag was sent [facility] to [facility] last night). Vanco random level was drawn [...] Chela Varela 07/09/2012 8:14 AM Hi Farrar 07/08/2012 10:20 PM PSTFormatting of this note might be different from the origi nal. Progress Notes by Juan Timmons MD at 07/08/122219 Author: Juan Timmons MD Service: Nephrology Author Type: Physician Filed: 08/19/12 0099 Date of Service: 07/08/122219 Status: Signed Vice Chancellor: Juan Timmons MD (Physician) [facility] Service: NEPHROLOGY progress Note Carol Potter 47 y.o. [id number] male [facility] Day: LOS: 2 days The patient [...] W/ EGD; Surgeon: John Singleton MD; Location: [facility]; rvice: Gastroenterology; Laterality: N/A; Av fistula placement 05/06/2012 Procedure: AV FISTULA; Surgeon: Oskar Meyer MD; Location: [facility] MAIN OR; Service: Vascul ar; [...] 20 mg by mouth nightly. ergocalciferol (DRISDOL) 70484 UNITS capsule Take 1 capsule by mouth [...] by mouth daily. folic acid-vitamin b complex-vitamin s-rgvzasuw-mhou (DIALYVITE) 3 MG TABS Take 1 table [...] nightly. Not sure of dosage vitamin B ecuzdzn-D-muwvv acid (SUPER B VITAMINS) 0.8 MG TABS [...] BIOLOGICAL; 2 STEP KIDSUNEMPLOYED BEFORE WORKED AT [employer] [email or web address] ETOH QUIT 15 YEARS AGODRUGS: quit [...] mg Intravenous See Admin Instructions vitamin B gebbhbk-K-hthlg acid 1 tablet Oral Daily with breakfast [...] 07/08/122001 Date of Service: 07/08/122001 Status: Signed Vice Chancellor: Carmina Lara RPH (Pharmacist) Clinical Pharmacy Note: Renal Monitoring Carol Potter 47 y.o. male Ht Readings from Last 1 Encounters: 07/06/12 1.702 m (5' 7") Wt Readings from Last 1 Encounters: 07/08/12 73.9 kg (162 lb 14.7 oz) Patient is on hemodialysis - Usual schedule: Mon-Sat-Sat Pharmacy dosing for renal function per Dr. [...] orders and adjust accordingly. Carmina Lara PharmD 07/08/2012 7:59 PM roAl jefferson DO - 07/08/2012 6:09 PM PSTFormatting of this note might be different from the betina ginal. Progress Notes by Al Coon DO at 07/08/121808 Author: Al Coon DO Service: (none) Author Type: Physician Filed: 07/09/12854 Date of Service: 07/08/121808 Status: Addendum Vice Chancellor: Al Coon DO (Physician) Related Notes: Original Note by Al Coon DO (Physician) filed at 07/09/12854 [facility] Service: Hospitalist Progress Note Hospital Day: LOS: [...] mg Intravenous See Admin Instructions vitamin B qyarbss-A-dtxtm acid 1 tablet Oral Daily with breakfast DISCONTD: clindamycin 600 mg Intravenous Subassembly Supervisor to OR DISCONTD: gentamicin 1.5 mg/kg (Adjusted) [...] - - 80 - 98 % - 07/07/121944 126/59 mmHg - - 80 - 98 % - 07/07/12 193 128/58 mmHg - - 78 - 98 % - 07/07/121914 132/60 mmHg - - 78 - 98 % - 07/07/12 190 125/58 mmHg - - - - 89 % - 07/07/121839 121/60 mmHg - - 76 15 93 [...] arthroscopy. Plan as above Disposition: Inpatient Al CoonDO 07/08/2012 6:12 PM hZoltan lacey ARN P - 07/08/2012 4:11 PM PST Progress Notes by Zoltan Garcia RN at 07/08/12 161 Author: Zoltan Garcia RN Service: (none) Author Type: Registered Nurse Filed: 07/08/121610 Date of Service: 07/08/121610 Status: Signed Vice Chancellor: Zoltan Garcia RN (Registered Nurse) VSS. Pt. Resting quietly in bed. No acute observations. Will continue monitoring. @ bedside. Pt. Had HD today with 2L off. Pt. Had bed bath and two bowel movements, large, l oose. onversion Trans action, Provider Unknown - 07/08/2012 1:56 PM PST Progress Notes by Clari Vazquez RN at 07/08/12 9822 Author: Clari Vazquez RN Service: Wound/Ostomy Care Author Type: Registered Nurse Filed: 07/08/12 3135 Date of Service: 07/08/121355 Status: Addendum Vice Chancellor: Clari Vazquez RN (Registered Nurse) Related Notes: Original Note by Clari Vazquez RN (Registered Nurse) filed at 0755 Patient seen today by software validation technician for evaluation due to a documented pressure ulcer. Tomark y's Olivier scale score is 14 indicating [...] Notes by Kelley Toussaint RPH at 07/08/12 1328 Author: Kelley Toussaint RPH Service: (none) Author Type: Pharmacist Filed: 07/08/12 1329 Date of Service: 07/08/121327 Status: Signed Vice Chancellor: Kelley Toussaint RPH (Pharmacist) Vancomycin Monitoring Clinician Dosing: Pharmacy Dosing Recent Trough level: N/A Plan per protocol: HD today, ended ~1200 Patient getting vanco 750 mg IV x 1. Order trough levels:07/08 @ 1600 (4 hours post HD) 07/08/2012 1:27 PM Pharmacist: Kelley Toussaint onver quique Transaction, Provider Unknown - 07/08/2012 9:50 AM PST Progress Notes by Erin Varela RN at 07/08/12 0950 Author: Erin Varela RN Service: Infectious Disease Author Type: Registered Nurse Filed: 07/08/12 0951 Date of Service: 07/08/12 09 Status: Signed Vice Chancellor: Erin Varela RN (Registered Nurse) Patient currently has a draining wound. Nasal PCR for MRSA is negative but Contact Isolati on is required until all pending cultures are final and negative for MRSA. Thank you. Erin Varela RN, BA, Diving Board Assembler Elsie Yang - 07/08/2012 9:00 AM PST Progress Notes by Elsie Lerner MD at 07/08/12 09 Author: Elsie Lerner MD Service: (none) Author Type: Physician Filed: 07/08/12 1153 Date of Service: 07/08/12 0900 Status: Signed Vice Chancellor: Elsie Lerner MD (Physician) [facility] Service: Infectious Disease Progress Note Hospital Day: [...] In April , he was hospitalized at [facility] for febrile illness with blood [...] c an appreciate light. Blood cultures from [facility] in [place] are now reported as positive for MSSA. [...] mg Intravenous See Admin Instructions vitamin B xuuofvi-K-ikyqp acid 1 tablet Oral Daily with breakfast DISCONTD: clindamycin 600 mg Intravenous Subassembly Supervisor to OR DISCONTD: meperidine 50 mg Intravenous [...] 76.6 kg (168 lb 14 oz) (07/08 05) FiO2 : [49 %-100 %] 100 % [...] VANCOMYCIN,RANDOM 29.01 ug/mL Comments: Testing performed at [facility];[address] [place] [address];[place] [address] Lab Flowsheet Order Details View Encounter Lab and Collection Details Routing Result History Specimen Collected: 07/07/12 1:43 PM Last Resulted: 07/07/12 2:11 PM Encounter View Encounter Result Information Status Final result (07/07/2012 2:11 PM) Provider Status: Ordered Gentamicin level, random Abnormal Status: Final result MyChart: Not Released Value Flag Range GENTAMICIN, RANDOM 3.6 L 5.0 - 10.0 ug/mL Comments: Testing performed at [facility];[address] [place] [address] Lab Flowsheet Order Details View Encounter Lab and Collection Details Routing Result History Specimen Collected: 07/07/12 1:43 PM Last Resulted: 07/07/12 2:11 PM Hepatitis B surface antigen Status: Final result MyChart: Not Released Value Range HEP B SURFACE AG NON REACTIVE NON REACTIVE Comments: Testing performed at [facility], [address] [place] [address] Lab Flowsheet Order Details View Encounter Lab [...] R KNEE Specimen Description Testing performed at [facility];[address] [place] [address] SPECIAL REQUESTS [facility] TO DO GRAM SPECIAL REQUESTS Testing performed at [facility];[address] [place] [address]492 GRAM STAIN 2+ WBC'S SEEN GRAM STAIN NO ORGANISMS SEEN GRAM STAIN Testing performed at [facility];[address] [place] [address]651 CULTURE PENDING REPORT STATUS PENDING Order Details [...] Units Date/Time Blood culture, 1 of 2 [[id number]] (Abnormal) Collected:07/06/12 1800 Order Status:Completed Updated:07/08/12 1100 Specimen Information:Blood / Blood Specimen Description BLOOD SPECIAL REQUESTS R HAND SPECIAL REQUESTS Result: Testing performed at [facility];[address] [place] [address] GRAM STAIN Result: GRAM POSITIVE COCCI SEEN ON SMEAR OF ANAEROBIC BOTTLE GRAM STAIN Result: CALLED TO MaryP/EZEKIEL Villegas ON 07/07/12 AT 1337 BY READBACK GRAM STAIN Result: GRAM POSITIVE COCCI SEEN ON SMEAR OF AEROBIC BOTTLE GRAM STAIN Result: SMEAR RESULTS CALLED TO AND READ BACK BY: SHELL FLOWERS 6RP @ 2155 BY [facility] GRAM STAIN Result: Testing performed at [facility];[address] [place] [address] CULTURE Result: STAPHYLOCOCCUS AUREUS SUSCEPTIBILITY TO FOLLOW (A) CULTURE GROWTH IN TWO OF TWO BOTTLES (A) CULTURE TIME TO DETECTION: 0.78 DAYS CULTURE Result: Testing performed at [facility], [address] [place] [address] REPORT STATUS PENDING Blood culture, 2 of 2 [[id number]] (Abnormal) Collected:07/06/12 1804 Order Status:Completed Updated:07/08/12 1017 Specimen Information:Blood / Blood Specimen Description BLOOD GRAM STAIN Result: GRAM POSITIVE COCCI SEEN ON SMEAR OF AEROBIC BOTTLE GRAM STAIN Result: CALLED TO MaryP/ZOLTAN Mccullough ON 07/08/12 AT 1016 BY LL READBACK GRAM STAIN Result: Testing performed at [facility];[address] [place] [address] CULTURE GROWTH IN ONE OF TWO BOTTLES (A) CULTURE WORK UP IN PROGRESS AT MICRO LAB CULTURE Result: Testing performed at [facility];[address] [place] [address] REPORT STATUS PENDING C diff toxin by PCR (TAT 3 hr in house) [[id number]] Collected:07/07/12 1752 Order Status:Completed Updated:07/07/12 1904 Specimen Information:Stool / Stool Toxigenic C Difficile NEGATIVE Comment: Testing performed at [facility];[address] [place] [address] 027 NAP1 BI 027 NAP1 BI PRESUMPTIVE NEGATIVE Comment: Detection of 027 NAP1 BI strains of C. difficile is presumptive and for epidemiological purposes and not intended to guide or monitor treatment for C. difficile infections. Testing performed at [facility];[address] [place] [address]05 Fecal occult blood (in house) [[id number]] Collected:07/07/12 1751 Order Status:Completed Updated:07/07/12 1828 Specimen Information:Stool Fecal Occult Blood NEGATIVE Comment: Testing performed at [facility];[address] [place] [address] 628[address] MRSA by PCR [[id number]] Collected:07/07/12 1048 Order Status:Completed Updated:07/07/12 1211 Specimen Information:Nasopharyngeal / Nasopharyngeal Culture SOURCE NARES(NOSE) Comment: Testing performed at [facility];[address] [place] [address] 05102 RESULT NEGATIVE Comment: Testing performed at [facility];[address] [place] [address] 07/04 Blood cultures from [facility] - 3 of 3 bottles - MSSA, [...] 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 [id number] male [facility] Hospital Day: LOS: 1 day The patient [...] W/ EGD; Surgeon: John Singleton MD; Location: [facility]; Se rvice: Gastroenterology; Laterality: N/A; Av fistula placement 05/06/2012 Procedure: AV FISTULA; Surgeon: Oskar Meyer MD; Location: [facility] MAIN OR; Service: Vascul ar; [...] 20 mg by mouth nightly. ergocalciferol (DRISDOL) 42602 UNITS capsule Take 1 capsule by mouth [...] by mouth daily. folic acid-vitamin b complex-vitamin y-gcmpxkgr-hktn (DIALYVITE) 3 MG TABS Take 1 table [...] nightly. Not sure of dosage vitamin B buitdip-U-pdobf acid (SUPER B VITAMINS) 0.8 MG TABS [...] BIOLOGICAL; 2 STEP KIDSUNEMPLOYED BEFORE WORKED AT [employer] [email or web address] ETOH QUIT 15 YEARS AGODRUGS: quit [...] mg Intravenous See Admin Instructions vitamin B lvbsqle-X-xpjui acid 1 tablet Oral Daily with breakfast DISCONTD: acyclovir 400 mg Oral BID DISCONTD: aminocaproic acid 500 mg Oral Q6H DISCONTD: calcitRIOL 0.25 mcg Oral Nightly DISCONTD: clindamycin 600 mg Intravenous Subassembly Supervisor to OR DISCONTD: fish oil-omega-3 fatty acids 2 g Oral Daily DISCONTD: gentamicin 1 mg/kg (Adjusted) Intravenous Q8H DISCONTD: meperidine 50 mg Intravenous Once DISCONTD: omeprazole 20 mg Oral QAM AC DISCONTD: vitamin B vsepfhm-Y-dpmho acid 1 tablet Oral Daily with breakfast [...] KNEE Specimen Description Value: Testing performed at [facility];[address] [place] [address] GRAM STAIN WBC'S SEEN GRAM NEGATIVE COCCI ON CYTO SPIN SLIDE GRAM STAIN PHONED TO DR RAZA AT 0045 BY LJ READBACK GRAM STAIN Value: Testing performed at [facility];[address] [place] [address] CULTURE PENDING REPORT STATUS PENDING BODY FLUID CRYSTAL Collection Time 07/06/12 11:08 PM Component Value Range FLUID CRYSTALS PRESENT BODY FLUID CELL COUNT Collection Time 07/06/12 11:08 PM Component Value Range FLUID TYPE SYNOVIAL FLUID COLOR WHITE APPEARANCE HAZY RBC'S 40967 WBC'S 62127 Neutrophil Count, Fluid 98 LYMPHOCYTES 0 MONOCYTES/MACROPHAGES 2 EOSINOPHILS 0 Mesothelial Cells 0 OTHER CELLS 0 Cells Counted 100 FLUID CULT W/GRAM STAIN Collection Time 07/06/12 11:09 PM Component Value Range Specimen Description SYNOVIAL FLUID LEFT ANKLE Specimen Description Value: Testing performed at [facility];[address] [place] [address];[place] [address] GRAM STAIN WBC'S SEEN NO ORGANISMS SEEN ON CYTOSPIN SLIDE GRAM STAIN PHONED TO DR RAZA AT 0045 BY READBACK GRAM STAIN Value: Testing performed at [facility];[address] [place] [address];[place] [address] CULTURE PENDING REPORT STATUS PENDING POCT GLUCOSE [...] KNEE Specimen Description Value: Testing performed at [facility];[address] [place] [address]107 SPECIAL REQUESTS [facility] TO DO GRAM SPECIAL REQUESTS Value: Testing performed at [facility];[address] [place] [address] GRAM STAIN 2+ WBC'S SEEN GRAM STAIN NO ORGANISMS SEEN GRAM STAIN Value: Testing performed at [facility];[address] [place] [address] CULTURE PENDING REPORT STATUS PENDING CYTOLOGY ORDER NOTIFICATION ONLY Collection Time 07/07/12 6:43 PM Component Value Range CYTOLOGY ORDER NOTIFICATION ONLY SEE PATHOLOGY ORDER FOR RESULT. IMAGING: MRI hip right without contrast [[id number]] Resulted:07/06/12 2308 Order Status:Completed Updated:07/06/12 2077 Narrative: Preliminary report MRI of right hip [...] IN DETAIL WITH PATIENT/ HOSPITALIST/ dr meyer [facility] surgeon, ANSWERS ALL QUESTI ONS IN DETAIL, [...] 07/07/121917 Date of Service: 07/07/121911 Status: Signed Vice Chancellor: Yusra Vallejo RN (Registered Nurse) Pt returned [...] Date of Service: 07/07/12 1633 Status: Signed Vice Chancellor: Shyanne Campbell RN (Registered Nurse) Per radiology, no pneumothorax seen. Okay to use the line. Report called at 1630. onver quique Transaction, Provider Unknown - 07/07/2012 4:15 PM PST Progress Notes by Vaishnavi Mccall RN at 07/07/12 1615 Author: Vaishnavi Mccall RN Service: (none) Author Type: Registered Nurse Filed: 07/07/12 1616 Date of Service: 07/07/12 1615 Status: Signed Vice Chancellor: Vaishnavi Mccall RN (Registered Nurse) X-ray in pre-op going into room 1. Vaishnavi Mccall RN 07/07/2012. 4:16 PM onver quique Transaction, Provider Unknown - 07/07/2012 4:09 PM PST Progress Notes by Vaishnavi Mccall RN at 07/07/12 1609 Author: Vaishnavi Mccall RN Service: (none) Author Type: Registered Nurse Filed: 07/07/12 1615 Date of Service: 07/07/12 1609 Status: Signed Vice Chancellor: Vaishnavi Mccall RN (Registered Nurse) Dr. Meyer removed HD cath from R chest. Inserted new HD cath in L upper chest. Drsgs c/d/i. C hest x-ray ordered by Dr. Meyer. CLAIMS INVESTIGATOR still in room with pt. K-rider still infusing without p roblems. Vaishnavi Mccall RN 07/07/2012 4:11 PM onver quique Transaction, Provider Unknown - 07/07/2012 3:38 PM PST Progress Notes by Vaishnavi Mccall RN at 07/07/12 1538 Author: Vaishnavi Mccall RN Service: (none) Author Type: Registered Nurse Filed: 07/07/12 1541 Date of Service: 07/07/12 1538 Status: Signed Vice Chancellor: Vaishnavi Mccall RN (Registered Nurse) Dr. Meyer into talk with pt. Going to do procedure with HD cath in pre-op room with CLAIMS INVESTIGATOR. Th en will go to OR for [...] RPH Service: (none) Author Type: Pharmacist Filed: 07/07/12 1517 Date of Service: 07/07/121516 Status: Signed Vice Chancellor: Kelley Toussaint RPH (Pharmacist) Vancomycin Monitoring Clinician Dosing: Pharmacy Dosing Recent Random level: 29.01 mcg/mL Drawn: 07/07 @ 1348 Plan per protocol: No dose today, unless patient gets HD Order trough levels: If no HD tomorrow, then pharmacy will order another random level. 07/07/2012 3:14 PM Pharmacist: Kelley Toussaint Onofre Duyen wells Kenneth - 07/07/2012 1:03 PM PSTFormatting of this note might be different from the o riginal. Progress Notes by Duyen Raza MD at 07/07/12 826 Author: Duyen Raza MD Service: Orthopedic Surgery Author Type: Physician Filed: 07/07/12 3367 Date of Service: 07/07/121302 Status: Signed Vice Chancellor: Duyen Raza MD (Physician) [facility] Service: Orthopedic Surgery Progress Note Hospital Day: [...] Notes by Shyanne Benavides RN at 07/07/12 8152 Author: Shyanne Benavides RN Service: (none) Author Type: Finished Goods Planner Filed: 07/07/12 4801 Date of Service: 07/07/12 1239 Status: Signed Vice Chancellor: Shyanne Benavides RN (Finished Goods Planner) CM met with spouse - she is staying in the room with pt. They are from [place] and are co nnected with [facility]. Spouse had concerns re: needing food vouchers (no deacon ejsus - she is in touch with her case managers in [place] For more financial assistance) Provided [...] per request. CM to follow. onver quique Transaction, Provider Unknown - 07/06/2012 11:36 PM PST Progress Notes by Carmina Lara [facility] at 07/06/12 1377 Author: Carmina Lara RPH Service: (none) Author Type: Pharmacist Filed: 07/06/122335 Date of Service: 07/06/122335 Status: Signed Vice Chancellor: Carmina Lara RPH (Pharmacist) Clinical Pharmacy Note: [...] Carmina Lara PharmD 07/06/2012 11:34 PM onver quiqueelida Castillo, Provider Unknown - 07/06/2012 10:07 PM PST Progress Notes by Carmina Lara RPH at 07/06/122206 Author: Carmina Lara RPH Service: (none) Author Type: Pharmacist Filed: 07/06/122207 Date of Service: 07/06/122206 Status: Signed Vice Chancellor: Carmina Lara RPH (Pharmacist) Clinical Pharmacy Note: Pharmacy Dosing Gentamicin (Conventional Dosing); Day 1 Carol Potter 47 y.o. male Ht Readings from Last 1 Encounters: 07/06/12 1.702 m (5' 7") Wt Readings from Last 1 Encounters: 07/06/12 72.576 kg (160 lb) [place] dosing weight: 68.7 kg Patient is on hemodialysis - usual schedule Sat-Wed-Sat WBC Date Value Range Status 07/06/2012 23.5* 3.8 - 11.0 K/uL Final Testing performed at [facility];[address] [place] [address];[place] [address] INDICATION: Endocarditis Patient received a dose of [...] 07/06/122202 Date of Service: 07/06/122202 Status: Signed Vice Chancellor: Carmina Lara RPH (Pharmacist) Clinical Pharmacy Note: Vancomycin Day 1 Pharmacy Dosing Vancomycin per Renal Failure Protocol for Patients on Hemodialysis Carol Jim47 y.o. male Ht Readings from Last 1 Encounters: 07/06/12 1.702 m (5' 7") Wt Readings from Last 1 Encounters: 07/06/12 72.576 kg (160 lb) WBC Date Value Range Status 07/06/2012 23.5* 3.8 - 11.0 K/uL Final Testing performed at [facility];[address] [place] [address];[place] [address] Usual dialysis schedule: Sat-Sat-Sat INDICATION: Endocarditis First dose of Vancomycin 1250 mg was given 07/06 at 1954. Will continue 750 mg IV after each hemodialysis. Trough monitoring is not necessary at this time. Pharmacy will order levels (with goal 15 to 20 mcg/mL) if deemed necessary and will adjust dose accordingly. Carmina Lara PharmD 07/06/2012 10:01 PM docume nted in this encounter H&P Notes Edith Díaz MD - 07/06/2012 8:48 PM PSTFormatting of this note might be different fro m the original. H&P by Edith Díaz MD at 07/06/122047 Author: Edith Díaz MD Service: (none) Author Type: Physician Filed: 07/10/122150 Date of Service: 07/06/122047 Status: Signed Vice Chancellor: Edith Díaz MD (Physician) [facility] Service: Hospitalist Admission History & Physical Date of Admission: 07/06/2012 Requesting Physician: , Emergency Department Reason for Admission: SIRS, staph bacteremia, polyarthritis History Obtained From: patient, spouse, chart review, Quality of history: good CHIEF COMPLAINT: Chief Complaint Chief Complaint Patient presents with Fatigue Joint Pain shoulder, knee, leg PCP: [facility] HISTORY OF PRESENT ILLNESS The patient is a 47 y.o. male with significant past medical history of diabetes complicated with end-stage renal disease, on maintenance hemodialysis Saturday, Saturday, Saturday, being followed by Dr. Timmons, hypertension, hyperlipidemia, anemia of chronic kidney disease, gout, prior bacteremia with MSSA and streptococcus. The patient had RONY in his previous admission. At that time, there was no evidence of endocarditis. The patient gets his hemodialysis at [place]. He presented to the ED with fever, episodic, high grade up to 102 degrees with chills and rigors for the past 2 weeks. Last Saturday while at hemodialysis at [place], blood cultures were drawn. Dr. Timmons had empirically given a dose of vancomycin and gentamicin for presumed bacteremia. Blood cultures now grow Staphylococcus aureus, isolation susceptibility pending. The patient also reported left eye almost near complete loss of vision for the past 2 days. He denied any recent injury. No pain in the left eye. No pain with movement of the eyeball. The right eye he has some pain behind the eyeball and is tender to touch. Denies any headache. He also reports bilateral hip pain, right knee pain, bilateral ankle pain for the past week. Pain is 10/10 intensity. Denies any recent fall or injury. The patient's mobility has been limited due to pain in the joints. For the past 2 days, he has barely gotten out of bed with inability to bear weight. Today it required 4 people to assist to get him out of the bed and into the car. He was also noted to have intermittent twitching for the past 2 days per . The patient reported entire back hurting for the past week. No focal tenderness to palpation of the spine. No trauma or injury. No motor weakness in the lower extremities or tingling or numbness. No incontinence of bowel or bladder. He has full sensation in the perineum. Due to persistent fevers and polyarthritis, the patient was brought to the ED by family. In the ER, he had persistent leukocytosis worsening from 20,000 on Saturday to 23,000, C-reactive protein 33, hypokalemia of 2.5 and fever of 99.3 with blood pressure of 103/53. Hospitalist service was consulted for admission. REVIEW OF SYSTEMS Review of Systems GENERAL :No recent change in weight. Appetite is down. High-grade fever which is present. HEENT: No headache. Left eye impaired vision. Right eye pain. No photophobia. No thrush, no odynophagia. Neck: No neck pain or neck stiffness. Lungs: History of asthma, stable. Has not required albuterol puffer in the past many several weeks. Denies any pleuritic chest pain, shortness of breath, cough, hemoptysis or wheezing. Heart: Reports episodic left precordial localized sharp pain, maximum intensity 4/10. Denies radiation to the jaw or left arm. Associated with mild diaphoresis. Denies any nausea or vomiting. No syncopal event but feels dizzy and lightheaded when made to ambulate. No edema in the lower extremities. No PND or orthopnea. Abdomen: Denies any GI hemorrhage. No abdominal pain, nausea, vomiting, constipation, diarrhea. : Still makes urine. Denies any dysuria, pyuria, hematuria and no urinary incontinence. Neurologically, history of stroke 2 years ago. No new focal neurological symptoms. No history of seizures. Diabetes controlled more recently. No report of hypoglycemia. End-stage renal disease, on maintenance hemodialysis Saturday, Saturday, Saturday. On Saturday, completed his full session of dialysis. Skin: Had rash previously which has improved significantly. Etiology of the rash is not clear. Past Medical History Diagnosis Date Hyperlipidemia Hypertension [...] W/ EGD; Surgeon: John Singleton MD; Location: [facility] ENDOSCOPY; Se rvice: Gastroenterology; Laterality: N/A; Av fistula placement 05/06/2012 Procedure: AV FISTULA; Surgeon: Oskar Meyer MD; Location: [facility] MAIN OR; Service: Vascul ar; Laterality: Left; Left arm possible right Unlisted procedure arthroscopy shoulder rt , ligaments Allergies Allergen Reactions Lisinopril Other (See Comments) "makes me sweat and knocked me out" Penicillins Other (See Comments) unknown Prior to Admission medications Medication Sig Start Date End Date Taking? Authorizing Provider acyclovir (ZOVIRAX) 400 MG tablet Take 400 mg by mouth 2 (two) times daily. Historical Provider albuterol (PROVENTIL) (2.5 MG/3ML) 0.083% nebulizer solution Take 2.5 mg by nebulization ev keira 6 (six) hours as needed. Historical Provider ALBUTEROL IN Inhale 2 puffs into the lungs daily. Historical Provider ALPRAZolam (XANAX) 0.5 MG tablet Take 0.5 mg by mouth nightly as needed. Historical Pr ovider aminocaproic acid (AMICAR) 500 MG tablet Take by mouth every 6 (six) hours. Historica l Provider amlodipine (NORVASC) 10 MG tablet Take 10 mg by mouth nightly. 04/15/12 04/15/13 Vikram thompson MD amlodipine (NORVASC) 10 MG tablet Take 10 mg by mouth nightly. Historical Provider calcitRIOL (ROCALTROL) 0.25 MCG capsule Take 0.25 mcg by mouth nightly. 04/15/12 04/15/13 Vikram Colbert MD Cholecalciferol (VITAMIN D-3 PO) Take 1 tablet by mouth daily. Historical Provider citalopram (CELEXA) 20 MG tablet Take 20 mg by mouth nightly. Historical Provider citalopram (CELEXA) 20 MG tablet Take 20 mg by mouth nightly. Historical Provider ergocalciferol (DRISDOL) 96271 UNITS capsule Take 1 capsule by mouth once a week. 04/15/12 04/15/13 Vikram Colbert MD fish oil-omega-3 fatty acids 1000 MG capsule Take 2 g by mouth daily. Historical Provi mark folic acid-vitamin b complex-vitamin a-zrvuqwdy-sioa (DIALYVITE) 3 MG TABS Take 1 tablet by mouth nightly. Historical Provider HYDROcodone-acetaminophen (NORCO) 5-325 MG per tablet Take 1 tablet by mouth every 6 (six) hours as needed. May take 1-2 tabs q 4-6 hrs Historical Provider levothyroxine (SYNTHROID, LEVOTHROID) 25 MCG tablet Take 25 mcg by mouth nightly. 04/15/12 04/15/13 Vikram Colbert MD Multiple Vitamins-Minerals (MULTIVITAMIN WITH MINERALS) tablet Take 1 tablet by mouth daily . Historical Provider omeprazole (PRILOSEC) 20 MG capsule Take 20 mg by mouth daily. Historical Provider omeprazole (PRILOSEC) 40 MG capsule Take 40 mg by mouth nightly. 05/02/12 05/02/13 Vikram thompson MD simvastatin (ZOCOR) 10 MG tablet Take 10 mg by mouth nightly. Not sure of dosage Histori herminia Provider vitamin B rcmyxqf-W-ujync acid (SUPER B VITAMINS) 0.8 MG TABS Take 1 tablet by mouth daily with breakfast. nephrovite Historical Provider Family History Problem Relation Age [...] BIOLOGICAL; 2 STEP KIDSUNEMPLOYED BEFORE WORKED AT [employer] [email or web address] ETOH QUIT 15 YEARS AGODRUGS: quit METHAMPHETAMINES PER P ATIENT after the ARF in mar 2012FATHER HAS COLON CANCER, HEART DISEASEMOTHER 15 YEARS AGONO FH KIDNEY PROBLEMS. History Smoking status Never Smoker Smokeless tobacco Never Used History Alcohol Use No History Drug Use No last used marijuana on 04/29/12, quit methaamphetamine in mar 2012 after ARF Instrumental Activities of Daily Living: Patient is unable to perform all instrumental acti vities of daily living. 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 Does not appear in respiratory distress. Appears in pain whenever he moves. is at the bedside. HEENT: Pupils are equal and reactive. Extraocular muscles are intact. No nystagmus noted. Mild scleral congestion of the right eye present. Left eye cannot count fingers. Right eye normal vision. No evidence of periorbital cellulitis. Neck is supple. Right subclavian hemodialysis catheter site intact and no tenderness to palpation. Lungs are clear to auscultation bilaterally. Heart is regular, murmur present in the mitral area. No chest wall tenderness to palpation. Abdomen is soft. No guarding, no rigidity, nontender, nondistended. Bowel sounds are present normally. Bilateral lower extremities decreased range of motion of both hips due to pain and very tender to palpation. Right knee effusion present, swelling present, warmth present, tenderness to palpation present. Left knee minimally tender, only minimal effusion but not warm. Right ankle, there is some effusion present, some tenderness to palpation and mild decrease in range of motion. Left ankle is swollen, tender, hot and decreased range of motion. Skin: Healing rash. No evidence of new cellulitis or new rash. Back: No tenderness to palpation over the entire spine. Neck is supple. Is able to sit up on his own without assistance. Neurologically, nonfocal. Due to pain in the hips, he has limitation of movement of lower extremities. DATA CBC: Lab Results Component Value Date WBC 23.5* 07/06/2012 RBC 3.43* 07/06/2012 HGB 9.9* 07/06/2012 HCT 31.3* 07/06/2012 MCV 91.3 07/06/2012 MCH 28.7 07/06/2012 MCHC 31.5* 07/06/2012 RDW 57.3* 07/06/2012 PLT 305 07/06/2012 MPV 7.7 07/06/2012 DIFFTYPE MANUAL 07/06/2012 CMP: Lab Results Component Value Date NA 130* 07/06/2012 K 2.5* 07/06/2012 CL 89* 07/06/2012 CO2 28 07/06/2012 ANIONGAP 16 07/06/2012 GLUF 173* 07/06/2012 BUN 45* 07/06/2012 CREATININE 7.38* 07/06/2012 BCR 6 07/06/2012 CA 7.7* 07/06/2012 CA 6.1* 04/02/2012 PROT 7.1 07/06/2012 ALB 1.6* 07/06/2012 GLOB 5.5* 07/06/2012 BILITOT 0.5 07/06/2012 ALP 229* 07/06/2012 AST 31 07/06/2012 ALT 16 07/06/2012 EGFR 8* 07/06/2012 Magnesium: Lab Results Component Value Date MG 2.0 05/01/2012 Phosphorus: Lab Results Component Value Date PHOS 3.3 05/16/2012 PT/INR: Lab Results Component Value Date INR 1.1 05/06/2012 PTT: Lab Results Component Value Date APTT 30 05/06/2012 HgBA1c: Lab Results Component Value Date HGBA1C 6.0 05/14/2012 LABGLYC 126* 05/14/2012 TSH: Lab Results Component Value Date TSH 7.30* 07/06/2012 IRON: Lab Results Component Value Date IRON 29 04/28/2012 TIBC: Lab Results Component Value Date IRON 29 04/28/2012 TIBC 145 04/28/2012 LABIRON 20 04/28/2012 FERRITIN: Lab Results Component Value Date FERRITIN 245.0 04/28/2012 WBC with Differentials: Lab Results Component Value Date NEUTROABS 6.6 05/16/2012 NEUTROMAN 84* 07/06/2012 LYMPHOABS 1.4 07/06/2012 LYMPHOMAN 6* 07/06/2012 LYMPHSABS 0.7* 05/16/2012 LYMPHOPCT 7.1* 05/16/2012 MONOMAN 5 07/06/2012 MONOPCT 8.5 05/16/2012 EOSINOABS 0.2 07/06/2012 EOSINOMAN 1 07/06/2012 EOSABS 2.0* 05/16/2012 EOSPCT 19.6* 05/16/2012 BASOSABS 0.0 05/16/2012 BASOSMAN 1 05/01/2012 BASOPCT 0.3 05/16/2012 PLTEST ADEQUATE 07/06/2012 BANDSPCT 2 07/06/2012 NRBC 1* 05/02/2012 METAABS 0.5* 07/06/2012 COMDIFF SLIDE SCANNED, AGREES WITH AUTOMATED RESULTS. 05/06/2012 cxr : no pneumonia, some vascular congestion , official report pending PROBLEM LIST Principal Problem: *Bacteremia due to [...] right Bilateral ankle pain ASSESSMENT & PLAN 1. Staphylococcus bacteremia, pending isolation and susceptibility. Prior history of MSSA bacteremia. Was treated for 6 weeks with vancomycin. In March, RONY was negative for endocarditis. Dr. Lerner, infectious disease, consulted. Recommends to continue the vancomycin and gentamicin for presumed endocarditis until ruled out by RONY. Discussed with pharmacist, Carmina, to dose both vancomycin and gentamicin. The patient had received 1 dose of each on Saturday and today received [address] Timmons is arranging for hemodialysis catheter to be removed tomorrow after hemodialysis. Dr. Heller consulted for RONY in a.m. to rule out endocarditis. Repeat blood cultures ordered. Significantly elevated CRP and ESR noted. 2. Polyarthritis. Dr. Raza consulted for aspiration of the right knee and left ankle to rule out septic arthritis. Other possibility gout, but in the setting of bacteremia would lean towards septic arthritis. Ordered MRI of both hips to rule out septic arthritis. If present, will need ultrasound-guided arthrocentesis of the hips to be arranged by a.m. hospitalist. Continue home pain medications. Physical therapy consulted. 3. 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 Called Dr. Quiroz, range aid institution librarian, at 9:06 p.m. but unable to leave a message as mailbox is full; therefore, will attempt to call again. 4. Hypothyroidism, significantly elevated TSH. Will increase the dose of levothyroxine from 25 mcg to 75 mcg daily. 5. Hypokalemia. 30 mEq of potassium given in the ED. Continuous telemetry monitoring ordered. 6. Chest pain, episodic, for the past week. Multiple risk factors for coronary event. No active chest pain at this time. Ordered 12-lead EKG, cardiac enzymes and aspirin low dose 81 mg. The patient has had prior history of GI hemorrhage, therefore ordered a stool for occult blood. 7. Dizziness and lightheadedness due to bacteremia and pain. Possible orthostatic hypotension and rule out ACS. 8. Asthma, stable, without acute exacerbation. Continue albuterol nebulizers p.r.n. 9. Hyponatremia and hypochloremia, dilutional in a hemodialysis patient. Due for dialysis in a.m. tomorrow. 10. Inability to walk due to polyarthritis. Follow on the imaging. Continue antibiotics. Workup in progress. PT consulted. 11. Anemia of chronic kidney disease. No report of active GI hemorrhage. Stool for occult blood ordered. No indication for blood transfusion at this time. Monitor CBC daily. 12. 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 13. History of gout. Will check serum uric acid level and based on the findings of arthrocentesis will give colchicine renal dose. 14. Diabetes mellitus. Controlled hyperglycemia. No evidence of DKA or hypoglycemia. Will place the patient on low-dose insulin sliding scale and adjust accordingly. 15. Back pain but no point tenderness to the spine noted on physical examination and no neurological deficits at this time. If the MRI of the hip is negative for septic arthritis, would consider imaging the spine due to bacteremia to rule out any epidural infection. 16. Hypertension. At this time, blood pressures are soft and marginal. Will hold off on all blood pressure medications. Discussed with the patient and the possible catheter related staph bacteremia , and deal spect endocarditis with septic embolization, therefore guarded prognoses. Addendum:10 :[address] Quiroz, [facility] librarian. His impression right eye most likely scleritis/episcleritis from bacteremia. Continue treatment with antibiotics. 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 Quiroz in the office. The patient does not have tenderness of the temporoparietal area, does not have jaw claudication, therefore unlikely temporal arteritis. Elevated C-reactive protein, end-stage renal disease secondary to bacteremia. Addendum : 2 :47 am LACTIC ACID 2.8 (H) mmol/L MRI brain wo contrast and MRA head [[id number]] Status: Preliminary result Study Result Brain MRI/MRA preliminary impression: No significant abnormalities are seen. No abnormal diffusion-weighted signal to indicate presence of acute infarct. No findings suspicious for hemorrhage or mass effect. The orbital globes demonstrate no significant abnormalities. MRA demonstrates no evidence of occlusion, critical stenosis, or aneurysmal dilatation. Postcont rast imaging was not performed. There is paranasal sinus mucosal thickening. Read by Anai Cool MD on Jul 06 2012 11:43PM MRI hip left And Right without contrast [[id number]] Status: Preliminary result Study Result Preliminary report MRI of right hip without contrast MRI left hip without contrast: No evidence for acute fracture. No acute bone findings seen. No significant hip joint effusion. Mild bilateral hip degenerative joint disease. Modera te diffuse anasarca . [facility] radiologist will read the final report in the a.m. Read by Leena Espino MD on Jul 06 2012 11:08PM Disposition: Acute care Code Status: Full code Primary Care Physician: [facility] MRI hip left And Right without contrast [[id number]] Status: Preliminary result Study Result Preliminary report MRI of right hip without contrast MRI left hip without contrast: No evidence for acute fracture. No acute bone findings seen. No significant hip joint effusion. Mild bilateral hip degenerative joint disease. Modera te diffuse anasarca . [facility] radiologist will read the final report in the a.m. Read by Leena Espino MD on Jul 06 2012 11:08PM EDITH DÍAZ MD 07/06/2012 documented in this e ncounter Procedure Notes Duyen Raza - 07/06/2012 11:18 PM PSTFormatting of this note might be different fro m the original. Procedures by Duyen Raza MD at 07/06/12 6728 Author: Duyen Raza MD Service: (none) Author Type: Physician Filed: 07/06/12 2653 Date of Service: 07/06/12 9159 Status: Signed Vice Chancellor: Duyen Raza MD (Physician) Pre-procedure Diagnoses: 1. Effusion of knee joint right [719.06] 2. Effusion of ankle joint, left [719.07] Post-procedure Diagnoses: 1. Effusion of right knee joint [719.06] 2. Effusion of ankle joint, left [719.07] Procedures: 1. KNEE ARTHROCENTESIS [SUR44 (Custom)] 2. ANKLE ARTHROCENTESIS [SUR45 (Custom)] [facility] Service: Orthopaedic Surgery Procedure Note Pre-procedure Diagnosis: 1) Right knee effusion 2) Left ankle effusion Post-procedure Diagnosis: Same Procedure(s): 1) Right knee arthrocentesis 2) Left ankle arthrocentesis Surgeon: DUYEN RAZA MD Estimated Blood Loss: Minimal Specimen: Indications: See consult note dated 07/06/2012. Findings: 1) 45 cc cloudy yellow synovial fluid right knee 2) 1 cc clear straw colored synovial fluid left ankle Complications: none Description of Procedure: Positive ID of patient in room, procedure discussed, including risks and benefits: infectio n, bleeding, neurovascular injury, need for future procedure. Patient expressed understandi ng and wished to proceed. I sterilely prepped the lateral suprapatellar approach to the right knee, and using an 18 g auge needle, performed knee arthrocentesis. I had immediate return of cloudy appearing syno vial fluid, total of 45 cc. Needle was withdrawn, and I placed a sterile Band-aid. I then sterilely prepped the anteromedial approach to the left ankle, and again using an 18 gauge needle, performed ankle arthrocentesis. 1 cc of clear straw colored synovial fluid w as returned. I redirected the needle, with no further fluid obtained. Needle was withdrawn and I placed a sterile Band-aid. Fluid was sent for STAT cell count, gram stain, culture, and crystal analysis. There were no complications. Condition: Stable DUYEN RAZA MD 07/06/2012 11:19 PM documented in this e ncounter Consult Notes Oskar Meyer MD - 07/07/2012 3:24 PM PST Consults by Oskar Meyer MD at 07/07/12 1524 Author: Oskar Meyer MD Service: (none) Author Type: Physician Filed: 07/07/12 1529 Date of Service: 07/07/121523 Status: Signed Vice Chancellor: Oskar Meyer MD (Physician) Subjective: Patient is a 47 y.o. male with PMH significant for DM, HTN, and ESRD who has been dialyzing via a right IJ permacath who underwent a left arm brachiobasilic fistula creation fwe month s ago. He was scheduled to undergo superficialization of the fistula tomorrow but was admit gela over the weekend for bacteremia. ID feels that the catheter may be infected and wants t he catheter out. They want a temporary line placed until his bacteremia resolves. Then, he could have a new tunneled catheter placed. Therefore, vascular surgery was consulted. Patient Active Problem List Diagnoses Date Noted Bacteremia due to Staphylococcus 07/06/2012 SIRS due to infectious process with acute organ dysfunction 07/06/2012 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 Polyarthritis 07/06/2012 Chest pain 07/06/2012 Hip pain, bilateral 07/06/2012 Knee pain, right 07/06/2012 Bilateral ankle pain 07/06/2012 Hyperphosphatemia 05/24/2012 Unspecified essential hypertension 05/24/2012 Anemia of chronic kidney failure 05/24/2012 Bacteremia due to Gram-positive bacteria 05/15/2012 ESRD (end stage renal disease) on dialysis 05/14/2012 Febrile illness, acute 05/14/2012 Diabetes mellitus 05/14/2012 Asthma 05/14/2012 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 GI bleed 04/30/2012 Anemia due to blood loss 04/30/2012 HTN (hypertension) 04/30/2012 DVT of IJ and B/L cephalics 04/30/2012 ESRD (end stage renal disease) on dialysis 04/30/2012 Acute posthemorrhagic anemia 04/29/2012 Class: Acute Hypokalemia 04/16/2012 Diabetes mellitus with ESRD (end-stage [...] psychostimulant dependence, continuous 04/02/2012 Unspecified asthma 04/02/2012 Past Medical History Diagnosis Date Hyperlipidemia Hypertension [...] W/ EGD; Surgeon: John Singleton MD; Location: [facility] ENDOSCOPY; Se rvice: Gastroenterology; Laterality: N/A; Av fistula placement 05/06/2012 Procedure: AV FISTULA; Surgeon: Oskar Meyer MD; Location: [facility] MAIN OR; Service: Vascul ar; [...] 20 mg by mouth nightly. ergocalciferol (DRISDOL) 64170 UNITS capsule Take 1 capsule by mouth [...] by mouth daily. folic acid-vitamin b complex-vitamin x-gnogjdbq-eopl (DIALYVITE) 3 MG TABS Take 1 table [...] nightly. Not sure of dosage vitamin B wuoveuj-F-gfbet acid (SUPER B VITAMINS) 0.8 MG TABS Take 1 tablet by mouth da juan with breakfast. nephrovite Allergies Allergen Reactions Lisinopril Other (See Comments) "makes me sweat and knocked me out" Penicillins Other (See Comments) unknown History Substance Use Topics Smoking status: Never Smoker Smokeless tobacco: Never Used Alcohol Use: No Family History Problem Relation Age of Onset Heart disease Mother Heart disease Father Diabetes Father Cancer Father colon cancer Review of Systems Pertinent items are noted in HPI. Objective: Patient Vitals for the past 8 hrs: BP Temp Temp src Pulse Resp SpO2 Weight 07/07/12 1219 116/55 mmHg 98 F (36.7 C) - 85 16 96 % - 07/07/12 1030 106/54 mmHg - - 82 16 100 % - 07/07/12 1020 120/60 mmHg - - - 18 - - 07/07/12 1015 - - - - 18 - - 07/07/12 1006 - - - 86 18 100 % - 07/07/12 0829 139/65 mmHg - - - - - - 07/07/12 0814 123/59 mmHg - - - - - 75.6 kg (166 lb 10.7 oz) 07/07/12 0759 110/73 mmHg - - - - - - 07/07/12 0730 110/58 mmHg 97.6 F (36.4 C) Oral 83 16 99 % 75.5 kg (166 lb 7.2 oz) Exam: HEENT - poor oral hygiene; oropharynx clear CV - RRR Lungs - clear Abd - soft, ND Vascular - strong thrill in left arm. Incision well healed. Assessment and plan: 47 yo male with right IJ permacath and bacteremia. Will plan to remove the catheter and pl rohit temporary catheter in left IJ. Tip of catheter will be sent for culture. PARQ done and consent was obtained. lsie Lerner S - 6:20 AM PST Consult* by Elsie Lerner MD at 07/07/12 0620 Author: Elsie Lerner MD Service: (none) Author Type: Physician Filed: 07/07/12 1030 Date of Service: 07/07/12619 Status: Signed Vice Chancellor: Elsie Lerner MD (Physician) [facility] Service: Infectious Disease Initial Consult Note Date of Admission: 07/06/2012 Reason for Consultation: Staphylococcal bacteremia in a patient with ESRD on HD Requesting Physician: Dr. Alejandro Timmons, Nephrology History Obtained From: patient, chart review CHIEF COMPLAINT: Positive blood cultures; fatigue, joint pain HISTORY OF PRESENT ILLNESS The patient is a 47 y.o. male with significant past medical history of MSSA and Streptococc us anginosus bacteremia in March,, thought to be either from cutaneous source or from a LUE IV site. This was treated with IV vancomycin given with HD for about 6 weeks and brie fly with Zyvox. He has a R IJ tunneled HD catheter placed in March. He had a rash in er2011 thought to be acute suppurative folliculitis/perforating disease. In April, he w as hospitalized at [facility] for febrile illness with blood cultures in [facility] not showing growth. He has been having a week of joint pains, mostly at his R knee, L ankle and hips with diffi culty moving because of this. He has swelling of R knee and L ankle. He reports having fev er. He denies chest pain, cough, dyspnea, discomfort at dialysis catheter site, new skin ra sh. He denies headache or neck stiffness/pain. He is vague about back pains. He states beau t his vision deteriorated since Saturday on the left but he can appreciate light. Dr. Timmons in formed me that blood cultures drawn last Saturday at [facility] were reported on 07/06 for S aureus, with susceptibilities pending. He has been given IV vancomycin and gentamicin in d ialysis. With random levels done in the ER yesterday, he was given IV vancomycin and gentam icin. Plan as discussed with Dr. Díaz and Dr. Timmons on 07/06 is to rule out infective endocarditis , HD catheter infection and septic arthritis. Blood cultures on 07/[address] Randall ns saw the patient and did aspiration of R knee and L ankle. Noted synovial fluid analysis. REVIEW OF SYSTEMS Review of Systems Constitutional: Positive for fever, activity change and fatigue. Negative for chills, diaph oresis and appetite change. HENT: Negative for ear pain, congestion, rhinorrhea, mouth sores, trouble swallowing, neck pain and neck stiffness. Eyes: Positive for visual disturbance. Negative for pain and discharge. Respiratory: Negative for cough, shortness of breath and wheezing. Cardiovascular: Negative for chest pain, palpitations and leg swelling. Gastrointestinal: Negative for nausea, vomiting, abdominal pain, diarrhea and constipation. Genitourinary: ESRD on HD through R IJ tunneled catheter - no pain at site Musculoskeletal: Positive for joint swelling, arthralgias and gait problem. Skin: Positive for rash. Prior rash in 2011 better - dry skin with occasional itching Neurological: Negative for tremors and headaches. Hematological: Negative for adenopathy. Does not bruise/bleed easily. Psychiatric/Behavioral: Negative for confusion. The patient is not nervous/anxious. Past Medical History Diagnosis Date Hyperlipidemia Hypertension [...] W/ EGD; Surgeon: John Singleton MD; Location: [facility] END[facility]COPY; Se rvice: Gastroenterology; Laterality: N/A; Av fistula placement 05/06/2012 Procedure: AV FISTULA; Surgeon: Oskar Meyer MD; Location: [facility] MAIN OR; Service: Vascul ar; Laterality: Left; Left arm possible right Unlisted procedure arthroscopy shoulder rt , ligaments Allergies Allergen Reactions Lisinopril Other (See Comments) [...] 20 mg by mouth nightly. ergocalciferol (DRISDOL) 29422 UNITS capsule Take 1 capsule by mouth [...] by mouth daily. folic acid-vitamin b complex-vitamin k-fgnxduzq-zjgf (DIALYVITE) 3 MG TABS Take 1 table [...] nightly. Not sure of dosage vitamin B ztvioff-D-tpeul acid (SUPER B VITAMINS) 0.8 MG TABS Take 1 tablet by mouth da juan with breakfast. nephrovite Scheduled Medications aspirin 81 mg Oral Daily with breakfast citalopram 20 mg Oral Nightly gentamicin 1.5 mg/kg (Adjusted) Intravenous See Admin Instructions heparin (porcine) 5,000 Units Subcutaneous Q8H insulin aspart 0-3 Units Subcutaneous Nightly insulin aspart 0-6 Units Subcutaneous TID AC levothyroxine 75 mcg Oral Nightly omeprazole 40 mg Oral QAM AC potassium chloride 30 mEq Oral Once simvastatin 10 mg Oral Nightly sodium chloride 10 mL Intravenous Q8H vancomycin 17 mg/kg Intravenous Once vancomycin 750 mg Intravenous See Admin Instructions vitamin B oztbepx-K-wutuv acid 1 tablet Oral Daily with breakfast DISCONTD: acyclovir 400 mg Oral BID DISCONTD: aminocaproic acid 500 mg Oral Q6H DISCONTD: calcitRIOL 0.25 mcg Oral Nightly DISCONTD: fish oil-omega-3 fatty acids 2 g Oral Daily DISCONTD: gentamicin 1 mg/kg (Adjusted) Intravenous Q8H DISCONTD: omeprazole 20 mg Oral QAM AC DISCONTD: vitamin B viguswj-L-ayfwp acid 1 tablet Oral Daily with breakfast Continuous Infusions dextrose PRN Medications acetaminophen, acetaminophen, albuterol, ALPRAZolam, dextrose, dextrose, dextrose, glucagon , glucagon, HYDROcodone-acetaminophen, insulin aspart, nitroGLYCERIN, ondansetron, ondansetr on, polyethylene glycol Family History Problem Relation Age of Onset [...] BIOLOGICAL; 2 STEP KIDSUNEMPLOYED BEFORE WORKED AT [employer] [email or web address] ETOH QUIT 15 YEARS AGODRUGS: quit METHAMPHETAMINES PER P ATIENT after the ARF in mar 2012FATHER HAS COLON CANCER, HEART DISEASEMOTHER 15 YEARS AGONO FH KIDNEY PROBLEMS. PHYSICAL EXAM Vital Signs: BP 105/51 | Pulse 81 | Temp(Src) 98.2 F (36.8 C) (Oral) | Resp 20 | Ht 1.702 m (5' 7") | Wt 74.6 kg (164 lb 7.4 oz) | BMI 25.76 kg/m2 | SpO2 98% Temp: [98.2 F (36.8 C)-99.4 F (37.4 C)] 98.2 F (36.8 C) (07/07 314) BP: (103-112)/(51-56) 105/51 mmHg (07/07 314) Heart Rate: [81-88] 81 (07/07 314) Resp: [18-20] 20 (07/07 314) SpO2: [97 %-100 %] 98 % (07/07 314) Height: [170.2 cm (5' 7")] 170.2 cm (5' 7") (07/06 1700) Weight: [72.576 kg (160 lb)-74.6 kg (164 lb 7.4 oz)] 74.6 kg (164 lb 7.4 oz) (07/06 2327) BMI (Calculated): [25.1] 25.1 (07/06 1700) Physical Exam Nursing note and vitals reviewed. Constitutional: He is oriented to person, place, and time. No distress. HENT: Head: Normocephalic. Nose: Nose normal. No sinus tenderness, no mastoid tenderness Poor dentition Eyes: EOM are normal. Right eye exhibits no discharge. Left eye exhibits no discharge. No s cleral icterus. Light perception on L eye Neck: Neck supple. R IJ HD catheter with no drainage or erythema at exit site. No tenderness or swelling at tunneled area. Cardiovascular: Normal rate and regular rhythm. No murmur heard. Pulmonary/Chest: Effort normal and breath sounds normal. He exhibits no tenderness. Abdominal: Soft. Bowel sounds are normal. He exhibits no distension and no mass. There is n o tenderness. Musculoskeletal: He exhibits no edema. R knee and L ankle effusion, warm and tender to touch/passive movement No tenderness or warmth at hips Lymphadenopathy: He has no cervical adenopathy. Neurological: He is alert and oriented to person, place, and time. He exhibits normal muscl e tone. Skin: He is not diaphoretic. Very dry skin with areas of excoriation. Multiple areas of dark scarring at prior lucrecia h; no active folliculitis Psychiatric: Affect appropriate DATA CBC: Lab Results Component Value Date WBC 23.5* 07/06/2012 RBC 3.43* 07/06/2012 HGB 9.9* 07/06/2012 HCT 31.3* 07/06/2012 MCV 91.3 07/06/2012 MCH 28.7 07/06/2012 MCHC 31.5* 07/06/2012 RDW 57.3* 07/06/2012 PLT 305 07/06/2012 MPV 7.7 07/06/2012 DIFFTYPE MANUAL 07/06/2012 WBC: Lab Results Component Value Date WBC 23.5* 07/06/2012 NEUTABSMAN 19.7* 07/06/2012 NEUTROABS 6.6 05/16/2012 NEUTROMAN 84* 07/06/2012 LYMPHOABS 1.4 07/06/2012 LYMPHOMAN 6* 07/06/2012 LYMPHSABS 0.7* 05/16/2012 LYMPHOPCT 7.1* 05/16/2012 MONOABSMAN 1.2* 07/06/2012 MONOMAN 5 07/06/2012 MONOPCT 8.5 05/16/2012 EOSINOABS 0.2 07/06/2012 EOSINOMAN 1 07/06/2012 EOSABS 2.0* 05/16/2012 EOSPCT 19.6* 05/16/2012 BASOABSMAN 0.1 05/01/2012 BASOSABS 0.0 05/16/2012 BASOSMAN 1 05/01/2012 BASOPCT 0.3 05/16/2012 PLTEST ADEQUATE 07/06/2012 BANDSPCT 2 07/06/2012 NRBC 1* 05/02/2012 METAABS 0.5* 07/06/2012 METAPCT 2* 07/06/2012 RBCMORPH NORMAL 07/06/2012 COMDIFF SLIDE SCANNED, AGREES WITH AUTOMATED RESULTS. 05/06/2012 CMP: Lab Results Component Value Date NA 130* 07/06/2012 K 2.5* 07/06/2012 CL 89* 07/06/2012 CO2 28 07/06/2012 ANIONGAP 16 07/06/2012 GLUF 173* 07/06/2012 BUN 45* 07/06/2012 CREATININE 7.38* 07/06/2012 BCR 6 07/06/2012 CA 7.7* 07/06/2012 CA 6.1* 04/02/2012 PROT 7.1 07/06/2012 ALB 1.6* 07/06/2012 GLOB 5.5* 07/06/2012 BILITOT 0.5 07/06/2012 ALP 229* 07/06/2012 AST 31 07/06/2012 ALT 16 07/06/2012 EGFR 8* 07/06/2012 PT/INR: Lab Results Component Value Date INR 1.1 05/06/2012 PTT: Lab Results Component Value Date APTT 30 05/06/2012 [APTT Last 3 Troponin: Lab Results Component Value Date TROPONINI <0.02 07/07/2012 TROPONINI 0.06 04/05/2012 TROPONINI 0.06 04/05/2012 CPK: Lab Results Component Value Date CKTOTAL 138 07/07/2012 CKMB: Lab Results Component Value Date CKMB 1.2 07/07/2012 U/A: Lab Results Component Value Date COLORU YELLOW 05/15/2012 COLORU YELLOW 04/02/2012 CLARITYU CLEAR 05/15/2012 CLARITYU TURBID 04/02/2012 MEROPENEM 1.020 05/15/2012 LEUKOCYTESUR NEGATIVE 05/15/2012 NITRITE NEGATIVE 05/15/2012 NITRITE NEGATIVE 04/02/2012 UROBILINOGEN 0.2 05/15/2012 UROBILINOGEN 0.2 04/02/2012 PHUR 7.5 05/15/2012 PHUR 5.0 04/02/2012 BLOODU TRACE* 05/15/2012 KETONES NEGATIVE 05/15/2012 BILIRUBINUR NEGATIVE 05/15/2012 BILIRUBINUR NEGATIVE 04/02/2012 GLUCOSEU 100* 05/15/2012 Lipase: Lab Results Component Value Date LIPASE 56* 07/07/2012 Two sets of blood cultures requested from ER on 07/06 MRSA by PCR Status: Final result MyChart: Not Released Value Range SOURCE NARES(NOSE) Comments: Testing performed at [facility];[address] [facility];[place] [address] RESULT NEGATIVE NEGATIVE Comments: Testing performed at [facility];[address] [place] [address];[place] [address] Lab Flowsheet Order Details View Encounter Lab and Collection Details Routing Result History Specimen Collected: 07/03/12 8:34 AM Last Resulted: 07/03/12 9:51 AM Body fluid cell count Status: Edited MyChart: Not Released Value Range FLUID TYPE SYNOVIAL FLUID Comments: RIGHT KNEE Testing performed at [facility];[address] [place] [address];[place] [address] COLOR WHITE Comments: Testing performed at [facility];[address] [facility];[place] [address] APPEARANCE HAZY Comments: Testing performed at [facility];[place] [address] RBC'S [id number] /mm3 Comments: CELL COUNT RESULTS PHONED TO DR RAZA 07JUL2012 AT 0045 BY LJ READ BACK RESULTS VERIFIED Testing performed at [facility];[address] [place] [address];[place] [address] CORRECTED ON 07/07 AT 0148: PREVIOUSLY REPORTED 97815 CELL COUNT PHONED TO DR RAZA AT 0045 BY LJ READ BACK RESULTS VERIFIED WBC'S [id number] /mm3 Comments: CELL COUNT PHONED TO DR RAZA 07JUL2012 AT 0045 BY LJ READ BACK RESULTS VERIFIED Testing performed at [facility];[address] [place] [address];[place] [address] CORRECTED ON 07/07 AT 0148: PREVIOUSLY REPORTED 45932 Neutrophil Count, Fluid 98 % Comments: Testing performed at [facility];[address] [place] [address];[place] [address] LYMPHOCYTES 0 % Comments: Testing performed at [facility];[address] [place] [address];[place] [address] MONOCYTES/MACROPHAGES 2 % Comments: Testing performed at [facility];[address] [place] [address];[place] [address] EOSINOPHILS 0 % Comments: Testing performed at [facility];[address] [place] [address];[place] [address] Mesothelial Cells 0 % Comments: Testing performed at [facility];[address] [place] [address];[place] [address] OTHER CELLS 0 % Comments: Testing performed at [facility];[address] [place] [address];[place] [address] Cells Counted 100 Comments: Testing performed at [facility];[address] [place] [address];[place] [address] Lab Flowsheet Order Details View Encounter Lab and Collection Details Routing Result History Specimen Collected: 07/06/12 11:08 PM Last Resulted: 07/07/12 1:52 AM VC=Value has a corrected status Encounter View Encounter Result Information Status Edited (07/07/2012 1:52 AM) Provider Status: Ordered Body fluid crystal Status: Final result MyChart: Not Released Component Value FLUID CRYSTALS PRESENT Comments: CONSISTENT WITH MONOSODIUM URATES SENT FOR PATH CONSULT Testing performed at [facility];[address] [place] [address] Order Details View Encounter Lab and Collection Details Routing Result History Specimen Collected: 07/06/12 11:08 PM Last Resulted: 07/07/12 12:57 AM FLUID CULT W/GRAM STAIN Status: Preliminary result MyChart: Not Released Component Value Specimen Description SYNOVIAL FLUID RIGHT KNEE Specimen Description Testing performed at [facility];[address] [place] [address];[place] [address] GRAM STAIN WBC'S SEEN GRAM NEGATIVE COCCI ON CYTO SPIN SLIDE GRAM STAIN PHONED TO DR RAZA AT 0045 BY LJ READBACK GRAM STAIN Testing performed at [facility];[address] [place] [address] CULTURE PENDING REPORT STATUS PENDING Order Details View Encounter Lab and Collection Details Routing Result History Specimen Collected: 07/06/12 11:08 PM Last Resulted: 07/07/12 1:00 AM Encounter View Encounter Result Information Status Preliminary result (07/07/2012 1:00 AM) Provider Status: Ordered FLUID CULT W/GRAM STAIN Status: Preliminary result MyChart: Not Released Component Value Specimen Description SYNOVIAL FLUID LEFT ANKLE Specimen Description Testing performed at [facility];[address] [place] [address] GRAM STAIN WBC'S SEEN NO ORGANISMS SEEN ON CYTOSPIN SLIDE GRAM STAIN PHONED TO DR RAZA AT 0045 BY LJ READBACK GRAM STAIN Testing performed at [facility];[address] [place] [address] CULTURE PENDING REPORT STATUS PENDING Order Details View Encounter Lab and Collection Details Routing Result History Specimen Collected: 07/06/12 11:09 PM Last Resulted: 07/07/12 12:59 AM Encounter View Encounter Result Information Status Preliminary result (07/07/2012 12:59 AM) Provider Status: Ordered Radiology Results (last 7 days) Procedure Component Value Units Date/Time MRI brain wo contrast and MRA head [[id number]] Resulted:07/06/122342 Order Status:Completed Updated:07/06/122342 Narrative: Brain MRI/MRA preliminary impression: No significant abnormalities are seen. No abnormal diffusion-weighted signal to indicate presence of acute infarct. No findings suspicious for hemorrhage or mass effect. The orbital globes demonstrate no significant abnormalities. MRA demonstrates no evidence of occlusion, critical stenosis, or aneurysmal dilatation. Postcont rast imaging was not performed. There is paranasal sinus mucosal thickening. Read by Anai Cool MD on Jul 06 2012 11:43PM MRI hip left without contrast [[id number]] Resulted:07/06/122307 Order Status:Completed Updated:07/06/122307 Narrative: Preliminary report MRI of right hip without contrast MRI left hip without contrast: No evidence for acute fracture. No acute bone findings seen. No significant hip joint effusion. Mild bilateral hip degenerative joint disease. Modera te diffuse anasarca . [facility] radiologist will read the final report in the a.m. Read by Leena Espino MD on Jul 06 2012 11:08PM MRI hip right without contrast [[id number]] Resulted:07/06/122307 Order Status:Completed Updated:07/06/122307 Narrative: Preliminary report MRI of right hip without contrast MRI left hip without contrast: No evidence for acute fracture. No acute bone findings seen. No significant hip joint effusion. Mild bilateral hip degenerative joint disease. Modera te diffuse anasarca . [facility] radiologist will read the final report in the a.m. Read by Leena Espino MD on Jul 06 2012 11:08PM X-ray ankle left [[id number]] Order Status:Sent Updated:07/06/122121 X-ray knee limited right [[id number]] Order Status:Sent Updated:07/06/122121 XR Chest PA and Lateral [[id number]] (Normal) Resulted:07/06/121913 Order Status:Completed PROBLEM LIST Principal Problem: *Bacteremia due to [...] right Bilateral ankle pain ASSESSMENT & PLAN Staphylococcal bacteremia - on IV vancomycin/gentamicin while awaiting ID/susceptibilities - dosed by Pharmacy based on renal failure protocol. WBC trending down. Ruling out infective endocarditis, blood cultures sent on 07/06, RONY requested. I am follow ing up on the prior blood cultures, reportedly done at [facility] HD catheter to be discontinued as discussed with Dr. Timmons after dialysis - please send cath eter tip for culture. I was informed today that dialysis could not be carried out today and that a non-tunneled catheter may have to be placed today. Discussed with Pharmacy that if dialysis is not carried out today, to check random levels of vancomycin and gentamicin and d ose if needed. Skin is very dry but no actively infected lesions at this time. If patient is to have surg ical procedure today, discussed with nursing staff to give patient chlorhexidine bath. See below - R knee septic arthritis; will follow up synovial fluid culture but Gram stain r eported to be Gram negative cocci - ?over decolorization Polyarthritis - appreciate Orthopedics assistance; GNC from R knee aspirate on Gram stain. This will be verified with microbiologist this morning. Synovial fluid also shows crystals consistent with gout. DM ESRD on hemodialysis Left eye decreased vision - Ophthalmology consulted Case discussed with Dr. Díaz and Dr. Timmons Code Status: Full Code Primary Care Physician: [facility] Thank you for allowing me to participate in the care of this patient. ELSIE LERNER MD 07/07/[address] Bejarano. RONY done - Dr. Heller informed me that there were no signs of infective endocarditis iDuyen fuentes - 07/06/2012 9:33 PM PST Consult* by Duyen Raza MD at 07/06/122132 Author: Duyen Raza MD Service: Orthopedic Surgery Author Type: Physician Filed: 07/06/12 1706 Date of Service: 07/06/122132 Status: Signed Vice Chancellor: Duyen Raza MD (Physician) [facility] Service: Orthopedic Surgery Initial Consult Note Date of Admission: 07/06/2012 Reason for Consultation: Right knee pain, left ankle pain Requesting Physician: Antonia Campbellist History Obtained From: patient, chart review, spouse CHIEF COMPLAINT: Right knee pain, left ankle pain, bilateral hip pain, inability to bear w eight HISTORY OF PRESENT ILLNESS The patient is a 47 y.o. male with significant past medical history of ESRD, diabetes who p resents with bacteremia and multiple joint pain. He has had fevers, fatigue, general malais e for one week, and for two days has had inability to bear weight without significant pain. He states the pain is worse in the right knee. He presented to [facility] ER today, workup rev ealed a swollen knee, and I was consulted for joint aspiration, and consideration for treatm ent. REVIEW OF SYSTEMS Negative except for pertinent [...] W/ EGD; Surgeon: John Singleton MD; Location: [facility] ENDOSCOPY; Se rvice: Gastroenterology; Laterality: N/A; Av fistula placement 05/06/2012 Procedure: AV FISTULA; Surgeon: Oskar Meyer MD; Location: [facility] MAIN OR; Service: Vascul ar; Laterality: Left; Left arm possible right Unlisted procedure arthroscopy shoulder rt , ligaments Allergies Allergen Reactions Lisinopril Other (See Comments) "makes me sweat and knocked me out" Penicillins Other (See Comments) unknown (Not in a hospital admission) Scheduled Medications potassium chloride 30 mEq Oral Once Continuous Infusions vancomycin 1,250 mg (07/06/121953) PRN Medications Family History Problem Relation Age [...] BIOLOGICAL; 2 STEP KIDSUNEMPLOYED BEFORE WORKED AT [employer] [email or web address] N[place] ETOH QUIT 15 YEARS AGODRUGS: quit METHAMPHETAMINES PER P ATIENT after the ARF in mar 2012FATHER HAS COLON CANCER, HEART DISEASEMOTHER 15 YEARS AGONO FH KIDNEY PROBLEMS. History Smoking status Never Smoker Smokeless tobacco Never Used History Alcohol Use No Patient currently lives with family at home PHYSICAL EXAM Vital Signs: BP 108/56 | Pulse 84 | Temp(Src) 99.4 F (37.4 C) (Oral) | Resp 18 | Ht 1.702 m (5' 7") | Wt 72.576 kg (160 lb) | BMI 25.06 kg/m2 | SpO2 97% 1.702 m (5' 7") 72.576 kg (160 lb) Body mass index is 25.06 kg/(m^2). Mild distress Right knee with moderate effusion mild warmth no erythema mild discomfort with ROM would not bear weight tender along joint line Left ankle with no effusion no warmth or erythema mild discomfort with ROM tender along joint line BLE neurovascular exam normal RADIOGRAPHS Radiology Review: Xray right knee: no evidence of fracture or dislocation. Apparent mild effusion. No soft tissue swellling noted. No significant degenerative changes. Calcificat ion of popliteal artery noted. Xray left ankle: no evidence of fracture or dislocation. No significant effusion or soft tissue swelling. Mild degenerative changes noted. Calcification of posterior tibi al artery noted. LABORATORY DATA Lab Results Component Value Date WBC 23.5* 07/06/2012 HGB 9.9* 07/06/2012 HCT 31.3* 07/06/2012 PLT 305 07/06/2012 Lab Results Component Value Date NA 130* 07/06/2012 K 2.5* 07/06/2012 CL 89* 07/06/2012 CO2 28 07/06/2012 BUN 45* 07/06/2012 GLUCOSE 466* 04/08/2012 Lab Results Component Value Date INR 1.1 05/06/2012 Lab Results Component Value Date CRP 33.0* 07/06/2012 ESR 95 07/06/2012 PROBLEM LIST Principal Problem: *Bacteremia due to [...] right Bilateral ankle pain ASSESSMENT & PLAN Plan to aspirate left ankle, right knee; see procedure note Fluid for synovial analysis, gram stain, culture, cell count Code Status: Prior Primary Care Physician: [facility] Thank you for allowing me to participate in the care of this patient. I have discussed my recommendations with the attending physician. I will continue to follow with you. DUYEN RAZA MD 07/06/2012 9:33 PM uan Timmons - 07/06/2012 6:38 PM PST Consult* by Juan Timmons MD at 07/06/121837 Author: Juan Timmons MD Service: Nephrology Author Type: Physician Filed: 08/19/121815 Date of Service: 07/06/121837 Status: Signed Vice Chancellor: Juan Timmons MD (Physician) [facility] Service: NEPHROLOGY CONSULT Note Carol Potter 47 y.o. [id number] male [facility] Hospital Day: LOS: 0 days Date of Admission: 07/06/2012 Requesting Physician: ED provider/ Hospitalist Reason for CONSULTATION: History Obtained From: patient, family HISTORY OF PRESENT ILLNESS The patient is a 47 y.o. male with significant past medical history of diabetes complicated with end-stage renal disease, on maintenance hemodialysis Saturday, Saturday, Saturday, being followed by Dr. Timmons, hypertension, hyperlipidemia, anemia of chronic kidney disease, gout, prior bacteremia with MSSA and streptococcus. The patient had RONY in his previous admission. At that time, there was no evidence of endocarditis. The patient gets his hemodialysis at [place]. He presented to the ED with fever, episodic, high grade up to 102 degrees with chills and rigors for the past 2 weeks. Last Saturday while at hemodialysis at [place], blood cultures were drawn. Patient was empirically given a dose of vancomycin and gentamicin for presumed bacteremia. Blood cultures now grow Staphylococcus aureus, isolation susceptibility pending. The patient also reported left eye almost near complete loss of vision for the past 2 days. He denied any recent injury. No pain in the left eye. No pain with movement of the eyeball. The right eye he has some pain behind the eyeball and is tender to touch. Denies any headache. He also reports bilateral hip pain, right knee pain, bilateral ankle pain for the past week. Pain is 10/10 intensity. Denies any recent fall or injury. The patient's mobility has been limited due to pain in the joints. For the past 2 days, he has barely gotten out of bed with inability to bear weight. Today it required 4 people to assist to get him out of the bed and into the car. He was also noted to have intermittent twitching for the past 2 days per . The patient reported entire back hurting for the past week. No focal tenderness to palpation of the spine. No trauma or injury. No motor weakness in the lower extremities or tingling or numbness. No incontinence of bowel or bladder. He has full sensation in the perineum. Due to persistent fevers and polyarthritis, the patient was brought to the ED by family. In the ER, he had persistent leukocytosis worsening from 20,000 on Saturday to 23,000, C-reactive protein 33, hypokalemia of 2.5 and fever of 99.3 with blood pressure of 103/53. Nephrology consulted for evaluation and management of ESRD ONSET CHRONIC severity SEVERE Associated with fluid electrolyte acid base imbalances REQUIRING HD REVIEW OF SYSTEMS GENERAL :No recent change in weight. Appetite is down. High-grade fever which is present. HEENT: No headache. Left eye impaired vision. Right eye pain. No photophobia. No thrush, no odynophagia. Neck: No neck pain or neck stiffness. Lungs: History of asthma, stable. Has not required albuterol puffer in the past many several weeks. Denies any pleuritic chest pain, shortness of breath, cough, hemoptysis or wheezing. Heart: Reports episodic left precordial localized sharp pain, maximum intensity 4/10. Denies radiation to the jaw or left arm. Associated with mild diaphoresis. Denies any nausea or vomiting. No syncopal event but feels dizzy and lightheaded when made to ambulate. No edema in the lower extremities. No PND or orthopnea. Abdomen: Denies any GI hemorrhage. No abdominal pain, nausea, vomiting, constipation, diarrhea. : Still makes urine. Denies any dysuria, pyuria, hematuria and no urinary incontinence. Neurologically, history of stroke 2 years ago. No new focal neurological symptoms. No history of seizures. Diabetes controlled more recently. No report of hypoglycemia. End-stage renal disease, on maintenance hemodialysis Saturday, Saturday, Saturday. On Saturday, completed his full session of dialysis. Skin: Had rash previously which has improved significantly. Etiology of the rash is not clear. REST OF ROS NEGATIVE Past Medical History Diagnosis Date Hyperlipidemia Hypertension Diabetes mellitus type II Thyroid disease Anemia Abdominal pain, right upper quadrant 04/13/2012 Dialysis patient Chronic kidney disease dialysis GI bleed 04/30/2012 from coumadin Neuromuscular disorder neuropathy Hemodialysis patient Walker as ambulation aid Gout Asthma pt not using inhaler any more, no symptoms DVT (deep venous thrombosis) x3 AV fistula lt arm Past Surgical History Procedure Date Colonoscopy with egd 05/01/2012 Procedure: COLONOSCOPY W/ EGD; Surgeon: John Singleton MD; Location: [facility] END[facility]COPY; rvice: Gastroenterology; Laterality: N/A; Av fistula placement 05/06/2012 Procedure: AV FISTULA; Surgeon: Oskar Meyer MD; Location: [facility] MAIN OR; Service: Vascul ar; Laterality: Left; Left arm possible right Unlisted procedure arthroscopy shoulder rt , ligaments (Not in a hospital admission) Allergies Allergen [...] WITH [employer]; KIDSUNEMPLOYED BEFORE WORKED AT [employer] [place] NONE ETOH QUIT 15 YEARS AGODRUGS: USES METHAMPHETAMINES PER PATIENTF ATHER HAS COLON CANCER, HEART DISEASEMOTHER 15 YEARS AGONO FH KIDNEY PROBLEMS. Scheduled Medications Continuous Infusions PRN Medications Allergy: Allergies Allergen Reactions Lisinopril Other (See Comments) "makes me sweat and knocked me out" Penicillins Other (See Comments) unknown OBJECTIVE Vital Signs: BP 108/56 | Pulse 86 | Temp(Src) 98.3 F (36.8 C) (Oral) | Resp 20 | Ht 1.702 m (5' 7") | Wt 72.576 kg (160 lb) | BMI 25.06 kg/m2 | SpO2 100% I&O Detailed Table: Weight change: Examination: APPEARANCE: The patient is a pleasant sitting in no apparent distress. Appears in pain when ever he moves VITALS: Reviewed as listed. HEAD: NC/AT. EYES: Non-icteric sclera. +VE PALE CONJUCTIVA ENT: No oropharyngeal erythema. Buccal mucosa is moist. No gross ear or nasal prob lems noted. Mild scleral congestion of the right eye present. NECK: Supple. No raised JVD or thyromegaly. Right IJ hemodialysis catheter site intact and no tenderness to palpation. LYMPHATIC: No palpable lymphadenopathy. LUNGS: Clear to auscultation bilaterally. HEART: S1, S2, no pericardial rub noted. ABDOMEN: Full, soft, no tenderness. Bowel sounds are present. No organomegaly or bruit s noted. EXTREMITIES: no pedal edema noted. Peripheral pulses palpable but diminished in LE. B/L LE with chronic venous changes. Bilateral lower extremities decreased range of motion of both hips due to pain and very tender to palpation. Right knee effusion present, swelling present, warmth present, tenderness to palpation present. Left knee minimally tender, only minimal effusion but not warm. Right ankle, there is some effusion present, some tenderness to palpation and mild decrease in range of motion. Left ankle is swollen, tender, hot and decreased range of motion SKIN: Warm to touch. Healing rash. No evidence of new cellulitis or new rash. NEUROLOGIC: No gross focal motor deficit noted. PSYCH: The patient is alert and oriented x 3, mood and affect looks depressed. BACK: no CVA tenderness noted Hemodialysis access: Left upper extremity brachiocephalic fistula with good bruit Left IJ hemodialysis catheter LABS: Recent Results (from the past 24 hour(s)) CBC W/AUTO DIFF (REFLEX TO MANUAL) Collection Time 07/06/12 6:00 PM Component Value Range WBC 23.5 (*) 3.8 - 11.0 K/uL RBC 3.43 (*) 4.20 - 5.70 M/uL HGB 9.9 (*) 13.2 - 17.0 g/dL HCT 31.3 (*) 39.0 - 50.0 % MCV 91.3 80.0 - 100.0 fl MCH 28.7 27.0 - 34.0 pg MCHC 31.5 (*) 32.0 - 35.5 g/dL RDW SD 57.3 (*) 37 - 53 fl PLT 305 150 - 400 K/uL MPV 7.7 DIFF TYPE MANUAL Neutrophils Manual 84 (*) 40 - 75 % Bands 2 0 - 8 % METAMYELOCYTES 2 (*) 0 % Lymphocytes Manual 6 (*) 15 - 48 % Monocytes Manual 5 0 - 12 % Eosinophils Manual 1 0 - 7 % Neutrophils Absolute 19.7 (*) 1.9 - 7.4 K/uL Bands Manual 0.5 (*) 0 - 0.2 K/uL Metamyelocytes Absolute 0.5 (*) 0 K/uL Lymphocytes Absolute 1.4 1.0 - 3.9 K/uL Monocytes Absolute 1.2 (*) 0 - 0.8 K/uL Eosinophils Absolute 0.2 0 - 0.5 K/uL Platelet Estimate ADEQUATE MORPHOLOGY NORMAL NA 130* K 2.5* CL 89* CO2 28 GLUF 173* BUN 45* CREATININE 7.38* CA 7.7* PROT 7.1 ALB 1.6* IMAGING: No results found. Patient's old records and labs were reviewed in detail and summarized. PROBLEM LIST Principal Problem: *Bacteremia due to Staphylococcus Active Problems: Hypoalbuminemia Diabetes mellitus with ESRD (end-stage renal disease) HTN (hypertension) ESRD (end stage renal disease) on dialysis Anemia of chronic kidney failure Blind left eye Gout Hip pain, bilateral ASSESSMENT & PLAN ESRD ON HD No need for hd today Assess daily for need for hd & uf / hd/ uf in am Orders put in [...] díaz CASE DISCUSSED IN DETAIL WITH PATIENT/ HOSPITALIST, ANSWERS ALL QUESTIONS IN DETAIL, VERBAL IZES UNDERSTANDING I thank Dr kan for giving me the opportunity to take part in the care of this karolina p atient with multiple complex medical problems JUAN TIMMONS MD 07/06/2012 documented in this en counter ED Notes Conversion Transaction, Provider Unknown - 07/06/2012 11:02 PM PSTFormatting of this note m ight be different from the original. ED Notes by Salima Rodriguez RN at 07/06/122301 Author: Salima Rodriguez RN Service: (none) Author Type: Registered Nurse Filed: 07/06/122302 Date of Service: 07/06/122301 Status: Signed Vice Chancellor: Salima Rodriguez RN (Registered Nurse) Patient back from [facility]. Dr. Raza at bedside for procedure. Salima Rodriguez RN 07/06/122302 onver quique Transaction, Provider Unknown - 07/06/2012 10:22 PM PST ED Notes by Salima Rodriguez RN at 07/06/122221 Author: Salima Rodriguez RN Service: (none) Author Type: Registered Nurse Filed: 07/06/122221 Date of Service: 07/06/122221 Status: Signed Vice Chancellor: Salima Rodriguez RN (Registered Nurse) Patient remains in MRI at this time. Salima Rodriguez RN 07/06/122221 onver quique Transaction, Provider Unknown - 07/06/2012 9:20 PM PST ED Notes by Salima Rodriguez RN at 07/06/122119 Author: Salima Rodriguez RN Service: (none) Author Type: Registered Nurse Filed: 07/06/122148 Date of Service: 07/06/122119 Status: Signed Vice Chancellor: Salima Rodriguez RN (Registered Nurse) Assumed care of patient. Patient in MRI at this time. Salima Rodriguez RN 07/06/122148 onver quique Transaction, Provider Unknown - 07/06/2012 9:12 PM PST ED Notes by Akua Grubbs RN at 07/06/122111 Author: Akua Grubbs RN Service: (none) Author Type: Registered Nurse Filed: 07/06/122111 Date of Service: 07/06/122111 Status: Signed Vice Chancellor: Akua Grubbs RN (Registered Nurse) Per prior authorization technician, pt will go to xray now after which vanco should be thro and pt will go to mri Akua Grubbs RN 07/06/122111 onver quique Transaction, Provider Unknown - 07/06/2012 9:02 PM PST ED Notes by Akua Grubbs RN at 07/06/122101 Author: Akua Grubbs RN Service: (none) Author Type: Registered Nurse Filed: 07/06/122102 Date of Service: 07/06/122101 Status: Signed Vice Chancellor: Akua Grubbs RN (Registered Nurse) V/o from hospitalist to cancel lactic acid and esr she ordered as these have already been d one. Lab contacted re this Akua Grubbs RN 07/06/122102 onver quique Transaction, Provider Unknown - 07/06/2012 9:00 PM PST ED Notes by Akua Grubbs RN at 07/06/122099 Author: Akua Grubbs RN Service: (none) Author Type: Registered Nurse Filed: 07/06/122100 Date of Service: 07/06/122099 Status: Signed Vice Chancellor: Akua Grubbs RN (Registered Nurse) Called hospitalist for admit orders as none in computer yet Akua Grubbs RN 07/06/122100 onver quique Transaction, Provider Unknown - 07/06/2012 8:57 PM PST ED Notes by Akua Grubbs RN at 07/06/122056 Author: Akua Grubbs RN Service: (none) Author Type: Registered Nurse Filed: 07/06/122057 Date of Service: 07/06/122056 Status: Signed Vice Chancellor: Akua Grubbs RN (Registered Nurse) Pt alert, nad. Waiting for admit orders so pt may be admitted to floor Auka Grubbs RN 07/06/122057 onver quique Transaction, Provider Unknown - 07/06/2012 8:19 PM PST ED Notes by Akua Grubbs RN at 07/06/122018 Author: Akua Grubbs RN Service: (none) Author Type: Registered Nurse Filed: 07/06/122018 Date of Service: 07/06/122018 Status: Signed Vice Chancellor: Akua Grubbs RN (Registered Nurse) hospitalist at bedside Akua Grubbs RN 07/06/122018 onver quique Transaction, Provider Unknown - 07/06/2012 7:40 PM PST ED Notes by Akua Grubbs RN at 07/06/121939 Author: Akua Grubbs RN Service: (none) Author Type: Registered Nurse Filed: 07/06/121940 Date of Service: 07/06/121939 Status: Signed Vice Chancellor: Akua Grubbs RN (Registered Nurse) Pt pulled his iv out Akua Grubbs RN 07/06/121940 onver quique Transaction, Provider Unknown - 07/06/2012 5:38 PM PST ED Notes by Akua Grubbs RN at 07/06/121737 Author: Akua Grubbs RN Service: (none) Author Type: Registered Nurse Filed: 07/06/121748 Date of Service: 07/06/121737 Status: Signed Vice Chancellor: Akua Grubbs RN (Registered Nurse) No blood return from iv start. No s/s infiltration. cata er phlebo asked to draw blood Akua Grubbs RN 07/06/121748 onver quique Transaction, Provider Unknown - 07/06/2012 5:20 PM PST ED Notes by Akua Grubbs RN at 07/06/121719 Author: Akua Grubbs RN Service: (none) Author Type: Registered Nurse Filed: 07/06/121752 Date of Service: 07/06/121719 Status: Signed Vice Chancellor: Akua Grubbs RN (Registered Nurse) Pt with multiple c/o. C/o myalgia, back pain, chills, unable to stand, unable to see out of r eye (or left eye too, although this changes during course of interview). States was seen in [place] for same sx a week ago, given pain pills and sent home. Alert, smiling and talk ative. nad Akua Grubbs RN 07/06/121752 OWhRachna cosby DO - 07/06/2012 5:03 PM PSTFormatting of this note might be different from the o riginal. ED Provider Notes by Rachna Kan DO at 07/06/121702 Author: Rachna Kan DO Service: (none) Author Type: Physician Filed: 07/07/12149 Date of Service: 07/06/121702 Status: Signed Vice Chancellor: Rachna Kan DO (Physician) 5:03 PM [facility] Department of Emergency Medicine History of Present Illness Patient Identification Carol Potter is a 47 y.o. male. Patient information was obtained from patient and relative(s). History/Exam limitations: none. Patient presented to the Emergency Department by: Car Chief Complaint Chief Complaint Patient presents with Fatigue Joint Pain shoulder, knee, leg The patient complains of joint pain. Onset of symptoms was one week ago, with a constant co urse since that time. The symptoms are described to be of moderate to severe severity. The p atient also complains of fever, fatigue, headache, blurred vision out of the left eye. Pt re ports that the vision changes started on Saturday (two days ago). The patient describes the qu ality and location of the symptoms as the following: "my joints and my spine are on fire." Nik watts was seen last week in [place] for the same symptoms and was given pain medications and d ischarged home. Pt was instructed at that time to come to [facility] if his symptoms worsened. P t denies chest pain, cough, shortness of breath, dysuria, and abdominal pain. PCP: [facility] Past Medical History Diagnosis Date Hyperlipidemia [...] W/ EGD; Surgeon: John Singleton MD; Location: [facility] END[facility]COPY; Se rvice: Gastroenterology; Laterality: N/A; Av fistula placement 05/06/2012 Procedure: AV FISTULA; Surgeon: Oskar Meyer MD; Location: [facility] MAIN OR; Service: Vascul ar; Laterality: Left; Left arm possible right Unlisted procedure arthroscopy shoulder rt , ligaments Prior to Admission medications Medication Sig Start Date End Date Taking? Authorizing Provider acyclovir (ZOVIRAX) 400 MG tablet Take 400 mg by mouth 2 (two) times daily. Historical Provider albuterol (PROVENTIL) (2.5 MG/3ML) 0.083% nebulizer solution Take 2.5 mg by nebulization ev keira 6 (six) hours as needed. Historical Provider ALBUTEROL IN Inhale 2 puffs into the lungs daily. Historical Provider ALPRAZolam (XANAX) 0.5 MG tablet Take 0.5 mg by mouth nightly as needed. Historical Pr ovider aminocaproic acid (AMICAR) 500 MG tablet Take by mouth every 6 (six) hours. Historica l Provider amlodipine (NORVASC) 10 MG tablet Take 10 mg by mouth nightly. 04/15/12 04/15/13 Vikram thompson MD amlodipine (NORVASC) 10 MG tablet Take 10 mg by mouth nightly. Historical Provider calcitRIOL (ROCALTROL) 0.25 MCG capsule Take 0.25 mcg by mouth nightly. 04/15/12 04/15/13 Vikram Colbert MD Cholecalciferol (VITAMIN D-3 PO) Take 1 tablet by mouth daily. Historical Provider citalopram (CELEXA) 20 MG tablet Take 20 mg by mouth nightly. Historical Provider citalopram (CELEXA) 20 MG tablet Take 20 mg by mouth nightly. Historical Provider ergocalciferol (DRISDOL) 61596 UNITS capsule Take 1 capsule by mouth once a week. 04/15/12 04/15/13 Vikram Colbert MD fish oil-omega-3 fatty acids 1000 MG capsule Take 2 g by mouth daily. Historical Provi mark folic acid-vitamin b complex-vitamin n-kmeaznbb-zauf (DIALYVITE) 3 MG TABS Take 1 tablet by mouth nightly. Historical Provider HYDROcodone-acetaminophen (NORCO) 5-325 MG per tablet Take 1 tablet by mouth every 6 (six) hours as needed. May take 1-2 tabs q 4-6 hrs Historical Provider levothyroxine (SYNTHROID, LEVOTHROID) 25 MCG tablet Take 25 mcg by mouth nightly. 04/15/12 04/15/13 Vikram Colbert MD Multiple Vitamins-Minerals (MULTIVITAMIN WITH MINERALS) tablet Take 1 tablet by mouth daily . Historical Provider omeprazole (PRILOSEC) 20 MG capsule Take 20 mg by mouth daily. Historical Provider omeprazole (PRILOSEC) 40 MG capsule Take 40 mg by mouth nightly. 05/02/12 05/02/13 Vikram thompson MD simvastatin (ZOCOR) 10 MG tablet Take 10 mg by mouth nightly. Not sure of dosage Histori herminia Provider vitamin B iayliwy-O-slqrp acid (SUPER B VITAMINS) 0.8 MG TABS Take 1 tablet by mouth daily with breakfast. nephrovite Historical Provider Allergies Allergen Reactions Lisinopril Other [...] BIOLOGICAL; 2 STEP KIDSUNEMPLOYED BEFORE WORKED AT [employer] [email or web address] N[place] ETOH QUIT 15 YEARS AGODRUGS: quit METHAMPHETAMINES PER P ATIENT after the ARF in mar 2012FATHER HAS COLON CANCER, HEART DISEASEMOTHER 15 YEARS AGONO FH KIDNEY PROBLEMS. Family History Problem Relation Age of Onset Heart disease Mother Heart disease Father Diabetes Father Cancer Father colon cancer Review of Systems Constitutional: Positive for: fever, fatigue Eyes: Positive for: blurred vision out of the left eye Nose: Negative for: runny nose Throat: Negative for: sore throat Cardiovascular/Respiratory: Negative for: chest pain, shortness of breath, and cough Gastrointestinal: Negative for: vomiting, diarrhea, black or bloody stools, abdominal pain Genitourinary: Negative for: dysuria, hematuria, urinary problems Musculoskeletal: Positive for: joint pain Skin: Negative for: rash Neuro and psych: Negative for: fainting, seizure Positive for: headache Endocrine/Heme/Lymph: Negative for: swollen lymph nodes, easy bruising All other systems reviewed and negative except as noted. Physical Exam BP 108/56 | Pulse 86 | Temp(Src) 98.3 F (36.8 C) (Oral) | Resp 20 | Ht 1.702 m (5' 7") | Wt 72.576 kg (160 lb) | BMI 25.06 kg/m2 | SpO2 100% Vital signs interpretation: normal Pulse Oximetry interpretation: Normal General: Alert Eyes: Will defer to opthalmology for eye exam, pt has cataracts ENT: Ears normal Nose normal Pharynx normal Neck: Tunnel dialysis catheter in the right subclavian Cardiovascular: Rate and rhythm normal Grade 1 holosystolic murmur heard best at the left sternal border Respiratory: No respiratory distress No wheezing, rales or rhonchi Abdomen: Soft, non-tender, non-distended No guarding or rebound Extremities: Pitting edema to the mid-calf Skin: Color normal Warm and dry No rash Neuro: No gross motor deficit No gross sensory deficit Medical Decision Making and Emergency Department Course ED Department Course Pt presents to the ED with complaints of joint pain and fatigue. The pt is on dialysis and was seen in [place] last week for similar symptoms. Will check labs, EKG, CXR, cultures an d reassess. 5:[address] Timmons (site operations manager) who is in the ED and requests that I order blood cultures, treat the pt and admit him to the hospitalist. He states that the pt was josué ated last Saturday and was found to have bacteremia with a WBC of 20,000 and he was treated wi th Gentimycin and Vancomycin. Pt has already had a blood cultre drawn from his catheter site , will draw two peripheral cultures. Pt is non-toxic appearing, vital signs are normal. 5:[address] Timmons who has spoken with Dr. Lerner (ID) and Dr. Lerner who requests that I order Vancomycin and Gentamycin level. 6:49 PM. Discussed with the lab who states that the pt's potassium is 2.5. 7:12 PM. Labs reviewed. Pt's Gentimycin and Vancomycin are therapeutic. Pt's CRP is 33, WBC is elevated, ESR is moderately elevated, moderate anemia, calcium corrects to normal for an albumin of 1.6. Chest X-ray interpreted, mild cardiomegaly, moderate vascular congestion, d ialysis catheter is in place, no infiltrates. 7:[address] Timmons about the pt's potassium who states that I should treat th e pt with potassium PO. 7:[address] Lerner who states that the pt should be given another dose of Vancomycin as he is going to be dialyzed tomorrow. 7:[address] Díaz (hospitalist) who will see the pt. Records Reviewed Old medical records. Nursing notes. Pt was in the hospital in April 2012, for Staph aureus and Streptococcus bacteremia, he was treated with Zylox. Dr. Ford (ID) thought the blood cultures obtained in dialysis were c ontaminated. The pt's subsequent cultures were negative and the pt improved during his hospi bernard stay. The Zylox was discontinued and the pt was discharged with a diagnosis of acute feb rile illness. Pt is a dialysis pt and sees Dr. Timmons. Laboratory Evaluation Results Procedure Component Value Ref Range Date/Time Lactic acid, plasma [[id number]] (Abnormal) Collected:07/06/122024 Order Status:Completed Updated:07/06/122109 Specimen Information:Blood LACTIC ACID 2.8 (H) 0.4 - 2.0 mmol/L Complete Metabolic Panel [[id number]] (Abnormal) Collected:07/06/12 1800 Order Status:Completed Updated:07/06/12 1852 Specimen Information:Blood SODIUM 130 (L) 135 - 143 mmol/L POTASSIUM 2.5 (LL) 3.5 - 4.9 mmol/L CHLORIDE 89 (L) 99 - 109 mmol/L CO2 28 23 - 32 mmol/L ANION GAP AGAP 16 5 - 20 mmol/L GLUCOSE 173 (H) 65 - 99 mg/dL BUN 45 (H) 8 - 25 mg/dL CREATININE 7.38 (H) 0.70 - 1.30 mg/dL BUN/CREAT 6 CALCIUM 7.7 (L) 8.5 - 10.2 mg/dL TOTAL PROTEIN 7.1 6.3 - 8.2 g/dL Albumin 1.6 (L) 3.6 - 5.0 g/dL GLOBULIN 5.5 (H) 1.3 - 4.9 g/dL A/G 0.3 (L) 1.0 - 2.4 TBIL 0.5 0.1 - 1.5 mg/dL ALK PHOS 229 (H) 35 - 115 U/L AST 31 10 - 45 U/L ALT 16 10 - 65 U/L EGFR 8 (L) >60 mL/min/1.73m2 C-Reactive Protein [[id number]] (Abnormal) Collected:07/06/121799 Order Status:Completed Updated:07/06/121851 Specimen Information:Blood CRP 33.0 (H) <0.5 mg/dL Free T4 [[id number]] Collected:07/06/121799 Order Status:Completed Updated:07/06/121851 FREE T4 1.0 0.7 - 1.5 ng/dL Gentamicin, random [[id number]] (Abnormal) Collected:07/06/121799 Order Status:Completed Updated:07/06/121851 GENTAMICIN, RANDOM 0.6 (L) 5.0 - 10.0 ug/mL TSH [[id number]] (Abnormal) Collected:07/06/121799 Order Status:Completed Updated:07/06/121851 TSH 7.30 (H) 0.45 - 5.10 uIU/mL Vancomycin, trough [[id number]] Collected:07/06/121799 Order Status:Completed Updated:07/06/121851 VANCOMYCIN,TROUGH 13.8 10 - 20 ug/mL Sedimentation Rate (ESR) [[id number]] (Abnormal) Collected:01/13/13 1800 Order Status:Completed Updated:07/06/12 185 Specimen Information:Blood ESR 95 (H) 0 - 15 mm/Hr CBC w Auto Diff [[id number]] (Abnormal) Collected:07/06/121799 Order Status:Completed Updated:07/06/121830 Specimen Information:Blood WBC 23.5 (H) 3.8 - 11.0 K/uL RBC 3.43 (L) 4.20 - 5.70 M/uL HGB 9.9 (L) 13.2 - 17.0 g/dL HCT 31.3 (L) 39.0 - 50.0 % MCV 91.3 80.0 - 100.0 fl MCH 28.7 27.0 - 34.0 pg MCHC 31.5 (L) 32.0 - 35.5 g/dL RDW SD 57.3 (H) 37 - 53 fl PLT 305 150 - 400 K/uL MPV 7.7 fl DIFF TYPE MANUAL Neutrophils Manual 84 (H) 40 - 75 % Bands 2 0 - 8 % METAMYELOCYTES 2 (H) 0 % Lymphocytes Manual 6 (L) 15 - 48 % Monocytes Manual 5 0 - 12 % Eosinophils Manual 1 0 - 7 % Neutrophils Absolute 19.7 (H) 1.9 - 7.4 K/uL Bands Manual 0.5 (H) 0 - 0.2 K/uL Metamyelocytes Absolute 0.5 (H) 0 K/uL Lymphocytes Absolute 1.4 1.0 - 3.9 K/uL Monocytes Absolute 1.2 (H) 0 - 0.8 K/uL Eosinophils Absolute 0.2 0 - 0.5 K/uL Platelet Estimate ADEQUATE MORPHOLOGY NORMAL I personally reviewed the lab results and they have been posted to the chart. Pertinent po sitive and negative findings have been addressed appropriately. Radiology and EKG Evaluation Imaging Results XR Chest PA and Lateral (Preliminary result) Result time:07/06/121913 ED Interpretation Documented by Merly Erazo (07/06/121913, [facility] Emergency Department, Emergency Medicine) Chest X-Ray 2 view: mild cardiomegaly, moderate vascular congestion, dialysis catheter is in place, no infiltrates. Viewed and interpreted by me: Rachna Kan DO. EKG 18:18 Normal sinus rhythm, rate 84, normal CA, normal BASSAM, normal axis, normal QRS, non specific ST-T wave changes. Artifact present. Independently viewed and interpreted by Rachna Kan DO ED Diagnoses Final diagnoses Sepsis Chronic renal failure DM (diabetes mellitus) Severe protein-calorie malnutrition Hypokalemia Hypertension Anemia Disposition: ED Disposition Admit/Observation Bed request special needs: None Diagnosis?: sepsis Follow-up Information None Discharge Medications: New Prescriptions No new medications Additional Documentation Procedures Attending Note: Documentation assistance provided by Merly Erazo (Scribe). Information recorded by the scribe has been reviewed and validated by me. I ag sejal with its contents. DO Rachna Ludwig DO 07/07/12 0150 documented in this e ncounter Miscellaneous Notes Plan of Care - Kisha Tello MD - 07/12/2012 10:36 AM PST Plan of Care by Kisha Tello MD at 07/12/12 1036 Author: Kisha Tello MD Service: (none) Author Type: Physician Filed: 07/12/12 1039 Date of Service: 07/12/12 1036 Status: Signed Vice Chancellor: Kisha Tello MD (Physician) Would need to get a dosing schedule from pharmacy for discharge . Once d/c plans - [place]/[facility] finalized- will need to confirm through case briefer with regard to continued iv vancomycin post dialysis for 8 weeks from 07/08. d/c only after confirmation that this is arranged for. p Note - Oskar Meyer MD - 07/11/2012 4:53 PM PST Brief Op Note by Oskar Meyer MD at 07/11/12 1432 Author: Oskar Meyer MD Service: Vascular Surgery Author Type: Physician Filed: 07/11/12 5814 Date of Service: 07/11/121652 Status: Signed Vice Chancellor: Oskar Meyer MD (Physician) [facility] Service: Vascular Surgery Brief Op Note Pre-operative Diagnosis: ESRD and fistula too deep to access Post-operative Diagnosis: Same Procedure(s): Superficialization of left arm brachiobasilic fistula Attempted right IJ access but right IJ clotted Removal of left IJ dialysis catheter and placement of left IJ permacath over wire Surgeon: Oskar Meyer MD Photograph Retoucher(s): None Anesthesia: General endotrachial anesthesia Estimated Blood Loss: Less than 100 ml Other: IV Fluids: 250 ml Indications: See pre-operative history and physical. Findings: Left arm basilic vein with multiple connections to the brachial vein. Good thri ll at end of case. Right IJ clotted by ultrasound. Unable to pass wire. Therefore, left I J dialysis catheter removed and left IJ permacath (24 cm) placed over wire. Tip of catheter at SVC/atrial junction Complications: None apparent Condition: Stable See dictated operative report for full details. Oskar Meyer MD 07/11/2012 p Note - Duyen Raza - 07/07/2012 6:11 PM PST Op Note by Duyen Raza MD at 07/07/121810 Author: Duyen Raza MD Service: Orthopedic Surgery Author Type: Physician Filed: 07/07/121826 Date of Service: 07/07/121810 Status: Signed Vice Chancellor: Duyen Raza MD (Physician) [facility] Service: Orthopaedic Surgery Operative Note Pre-operative Diagnosis: 1) Right knee septic arthritis, 711.06 2) Right knee acute gout attack, 274.0 Post-operative Diagnosis: Same Procedure(s): Right knee arthroscopy for irrigation and drainage, CPT 02383 Surgeon: DUYEN RAZA MD Anesthesia: General endotrachial anesthesia Anesthesiologist: JESSE WAGONER MD Estimated Blood Loss: Minimal Other: Drains: 10 slovak ml Specimens: culture x1 Indications: See pre-operative history and physical. Findings: 50 cc cloudy synovial fluid, multiple intra-articular gouty depositions Complications: none Description of Procedure: Following positive identification of the patient in the preopera tive holding area, I personally marked the operative extremity, he was then taken to the ope rating room and placed supine on the operating room table. General endotracheal anesthesia was induced without incident, and the right lower extremity was then prepped and draped in t he usual sterile orthopaedic fashion. Site marking was visible throughout the case. A time out was then performed confirming patient identity, procedure to be performed, and that anti biotics had been given. I first made a standard lateral para-patellar portal, and inserted my scope into the joint. I established a lateral supra-patellar portal for outflow. I had immediate backflow of 50 cc cloudy synovial fluid. I then performed a diagnostic arthroscopy. There were no abnormalities in the suprapatellar pouch, no loose bodies. There was normal articular cartilage in on the undersurface of the patella and the femoral trochlear groove. There were no loose bodies in the medial or lateral gutters. Sweeping into the medial com partment, the medial meniscus was normal with no tear. There was no chondromalacia of the m edial femoral condyle or tibial plateau. In the notch, the PCL was normal, the ACL was inta ct, but slightly frayed. In the lateral compartment, the lateral meniscus was normal withou t tear. There was no chondromalacia of the lateral femoral condyle or tibial plateau. I no gela multiple gouty depositions, mainly on the capsule of the medial and lateral gutters. At completion of the diagnostic arthroscopy, I then flushed a total of 12 liters of sterile saline through the joint, assuring as I did so, I directed the fluid into all compartments of the knee. At completion of the irrigation, I then placed a 10 slovak drain under direct visualization, through the lateral supra-patellar portal. I then closed the portals with nylon, and stitched the drain. I cleaned the skin, placed a sterile dressing consisting of adaptic, dry guaze and Sof-Rol. Drapes were then removed, ge neral anesthesia was reversed, the patient was extubated, and transferred to the hospital be . he was taken to the recovery room in stable condition. All counts were correct. There were no complications. Condition: Stable DUYEN RAZA MD 07/07/2012 6:11 PM p Note - Onelia Raza - 07/07/2012 6:11 PM PSTFormatting of this note might be different from the origi nal. Brief Op Note by Duyen Raza MD at 07/07/121810 Author: Duyen Raza MD Service: Orthopedic Surgery Author Type: Physician Filed: 07/07/121810 Date of Service: 07/07/121810 Status: Signed Vice Chancellor: Duyen Raza MD (Physician) [facility] Service: Orthopedic Surgery Brief Op Note See complete electronic operative report for full details. DUYEN RAZA MD 07/07/2012 6:11 PM p Note - Oskar Meyer MD - 07/07/2012 4:03 PM PST Brief Op Note by Oskar Meyer MD at 07/07/12 1603 Author: Oskar Meyer MD Service: Vascular Surgery Author Type: Physician Filed: 07/07/12 1606 Date of Service: 07/07/12 160 Status: Signed Vice Chancellor: Oskar Meyer MD (Physician) [facility] Service: Vascular Surgery Brief Op Note Pre-operative Diagnosis: Infected tunneled dialysis catheter with bacteremia; ESRD Post-operative Diagnosis: Same Procedure(s): Removal of tunneled right IJ permacath Placement of left IJ temporary dialysis catheter under ultrasound guidance Surgeon: Oskar Meyer MD Photograph Retoucher(s): None Anesthesia: Local anesthesia Estimated Blood Loss: Minimal Other: Not applicable Indications: See pre-operative history and physical. Findings: Right IJ permacath removed and tip sent for culture and sensitivities. Left IJ permacath placed under ultrasound guidance. Good withdrawal and flush from all ports. Complications: None apparent Condition: Stable See dictated operative report for full details. Oskar Meyer MD 07/07/2012c lan of Care - Camilla Bejarano MD - 07/07/2012 3:22 PM PSTFormatting of this note might be different from the or iginal. Plan of Care by Carlee Bejarano MD at 07/07/12 1522 Author: Carlee Bejarano MD Service: (none) Author Type: Physician Filed: 07/07/12 1529 Date of Service: 07/07/12 1522 Status: Signed Vice Chancellor: Carlee Bejarano MD (Physician) The patient was seen today. History and physical examination note, consultation notes, avai lable blood tests and imaging tests were reviewed. I have spoken to Dr. Lerner, Dr. Geeta wells and Dr. Timmons about the case. The patient is getting intravenous vancomycin and gentamicin as dosed by our Pharmacy. Dr. Raza is planning on doing wash-out of the affected knee. Dr Renato Timmons will take care of managing his dialysis catheter and subsequent dialysis. MRI of the hip report is still pending. I spoke to our case assembler about arranging transportation to Onelia Quiroz's office for further evaluation of his eyes. CARLEE BEJARANO MD 07/07/2012 3:29 PM documente d in this encounter Plan [...] | EXTERNAL LAB | | performed at [facility];[address] [place] [address];[place] [address] 027 NAP1 BI | | | 027 NAP1 BI PRESUMPTIVE NEGATIVE | | | Detection of 027 NAP1 BI strains of C. difficile is presumptive and | | | for epidemiological purposes and not intended to guide or monitor | | | treatment for C. difficile infections. Testing performed at [facility];[address] | | | [facility];[place] [address] | | + + + + +---------+ [...] as above Electronically | | signed by Giovany Espitia MD on 07/11/2012 5:24 PM | [...] | EXTERNAL LAB | | performed at [facility];[address] [facility];[place] [address] 027 NAP1 BI | | | 027 NAP1 BI PRESUMPTIVE NEGATIVE | | | Detection of 027 NAP1 BI strains of C. difficile is presumptive and | | | for epidemiological purposes and not intended to guide or monitor | | | treatment for C. difficile infections. Testing performed at [facility];[address] | | [facility];[place] [address] | | + + + + +---------+ [...] | Testing performed | | | at [facility];[address] [place] [address];[place] [address] SPECIAL REQUESTS | | | RAC | | | Testing performed at [facility];[address] [place] [address] | | | CULTURE NO GROWTH IN 5 DAYS. | | | Testing | | | performed at [facility], [address] [facility] [place] [address] REPORT STATUS | | | 07/14/2012 FINAL [...] | Testing performed | | | at [facility];[address] [facility];[place] [address] SPECIAL REQUESTS | | | R HAND | | | Testing performed at [facility];[address] [facility];[place] [address] | | | CULTURE NO GROWTH IN 5 DAYS. | | | Testing | | | performed at [facility], [address] [place] [address] REPORT STATUS | | | 07/14/2012 FINAL [...] EXTERNAL LAB | | Testing performed at [facility];[address] | | [address];[place] [address] OVA AND PARASITES | | | SPECIMEN DESCRIPTION: UNFORMED | | | NO OVA OR PARASITES SEEN | | | Testing performed at [facility], [address] [facility] [address] [facility] | | | [place] [address] REPORT STATUS | | | 07/11/2012 FINAL [...] LAB | | Testing performed at [facility], [address] [place] | | | [address] | | + + + + +---------+ [...] | EXTERNAL LAB | | performed at [facility];[address] [place] [address];[place] [address] 027 NAP1 BI | | | 027 NAP1 BI PRESUMPTIVE NEGATIVE | | | Detection of 027 NAP1 BI strains of C. difficile is presumptive and | | | for epidemiological purposes and not intended to guide or monitor | | | treatment for C. difficile infections. Testing performed at [facility];[address] | | | [facility];[place] [address] | | + + + + +---------+ [...] EXTERNAL LAB | | Testing performed at [facility];[address] | | | [facility];[place] [address] CULTURE | | | NO SALMONELLA, SHIGELLA, [...] TESTING. | | | Testing performed at [facility], [address] [facility], | | | [place] [address] REPORT STATUS | | | 07/10/2012 FINAL [...] | EXTERNAL LAB | | performed at [facility];[address] [place] [address];[place] [address] | | + + + + +---------+ [...] Khalif Palm - 02/13/2019 4:30 PM PDT HISTORY:Dialysis catheter [...] EXTERNAL LAB | | Testing performed at [facility];[address] [place] [address];[place] [address] MRSA PCR | | | NEGATIVE Testing performed at | | | [facility];[address] [place] [address];[place] [address] | | + + + + +---------+ [...] no pericardial effusion. | | | MEASUREMENTS Thermal Spray Operator: PAUL Authenticated by: | | | Jayy Heller MD Report Date/Time: 07-07-2012 14:01:40 | | + + + + + | Procedure Note | + + | Khalif Palm Conversion - 02/13/2019 4:30 PM PDT Patient Name: Mohinder POTTER of | | : 1965 Performing Physician: Jayy Heller | | MD INDICATIONS R | | /O ENDOCARDITIS CONCLUSIONS [...] is no pericardial | | effusion. MEASUREMENTS Thermal Spray Operator: Abundioticated by: Jayy Heller | | MDRepbrandie Date/Time: 07-07-2012 14:01:40 | |Interatrial Septum: No [...] | |MEASUREMENTS | | | | | |Thermal Spray Operator: PAUL | |Authenticated by: Jayy Heller MD | |Report Date/Time: 07-07-2012 14:01:40 | + + Medical Cytology (07/07/2012 12:00 AM PST) + + | Specimen | + + | | + + + + + | Narrative | Performed At | + + + | CASE: [id number] PATIENT: CAROL POTTER Cytology Report | EXTERNAL [...] interpretation was | | | performed by [facility], [facility], [address] | | | [place] [address] (Departmental Shipping Clerk: Trevor | | | Arslan Dan; CLIA#: [id number]). Technical preparation was | | | performed by [facility], [address] [facility] | | | [place] [address] (Departmental Shipping Clerk: Duyen Baez M.D.; CLIA#: | | | [id number]). Kalpana Palomo CT(ASCP) | | | Electronically [...] MRI OF THE BRAIN WITHOUT CONTRAST PLUS UTE [place] OF YANG MRA | | | 07/06/2012 HISTORY: Staphylococcal bacteremia. Clinical concern | | | for septic embolization and stroke. COMPARISON: None. | | | TECHNIQUE: 3-D migc-sr-[id number] [place] MRA with | | | [...] any is minimal. The | | | [place] MRA shows no evidence for high-grade stenosis, | | | central vessel occlusion or [place] saccular aneurysm. | | | [...] changes or metabolic process. 3. Unremarkable screening [place] | | | Yang MRA. 4. [...] THE BRAIN WITHOUT CONTRAST PLUS | | UTE [place] OF YANG MRA 07/06/2012 HISTORY: Staphylococcal bacteremia. Clinical concern for | | septic embolization and stroke. COMPARISON: None. TECHNIQUE: 3-D ogrk-tc-nruiug [place] | | of Yang MRA with multiprojectional [...] | disease if any is minimal. The [place] MRA shows no evidence for high-grade | | stenosis, central vessel occlusion or [place] saccular aneurysm. Posterior | | [...] | | metabolic process. 3. Unremarkable screening [place] MRA. 4. Maxillary sinus | | mucosal thickening and mild mastoid fluid signal. Electronically signed by Isaac Morgan | | MD Ronel on Jul 07 2012 7:35AM | |3. Unremarkable screening [place] MRA. | | | |4. [...] Sami Heath MD on Jul 07 | | 2012 4:14PM | |muscles. This is [...] increased T2 signal within the left gluteus kirstyn muscle. Slight | | | increased T2 [...] Sami Heath MD on Jul 07 | | 2012 4:14PM | |muscles. This is [...] Khalif Palm - 02/13/2019 4:30 PM PDT HISTORY:Left ankle [...] Rad Conversion - 02/13/2019 4:30 PM PDT HISTORY:Right [...] 02/13/2019 4:30 PM PDT CAROL POTTERXR CHEST 2 VIEW FRONTAL AND | | [...] AEROBIC BOTTLE | | | CALLED TO LANE/ZOLTAN Mccullough ON 07/08/12 AT 1016 BY LL READBACK | | | GRAM POSITIVE COCCI SEEN IN | | | ANAEROBIC BOTTLE | | | SMEAR RESULTS CALLED TO AND READ BACK BY: LANE/WESLEY Warren AT 2143 ON | | | 2012 BY NHAN | | | Testing performed at [facility];[address] [place] [address];[place] [address] CULTURE | | | STAPHYLOCOCCUS AUREUS FOR | | | SUSCEPTIBILITIES SEE CULTURE [id number] COLLECTED ON THE SAME | | | DATEAbnormal | | | GROWTH IN TWO OF TWO BOTTLESAbnormal | | | TIME TO DETECTION: 1.65 DAYS | | | Testing performed at [facility], [address] | | | [place] [address] REPORT STATUS | | | 07/09/2012 FINAL [...] HAND | | | Testing performed at [facility];[address] | [address];[place] [address] GRAM STAIN | | | GRAM POSITIVE COCCI SEEN ON SMEAR OF ANAEROBIC BOTTLE | | | CALLED TO [facility]/EZEKIEL Villegas ON 07/07/12 | | | AT 1337 BY READBACK | | | GRAM POSITIVE COCCI SEEN ON SMEAR OF AEROBIC BOTTLE | | | SMEAR RESULTS CALLED TO AND | | | READ BACK BY: SHELL Romo IN 6RP @ 4129 BY LGS | | | Testing performed at [facility];[address] | [address];[place] [address] CULTURE | | | STAPHYLOCOCCUS AUREUS SUSCEPTIBILITY TO FOLLOWAbnormal | | | GROWTH IN TWO OF TWO | | | BOTTLESAbnormal | | | TIME TO DETECTION: 0.78 DAYS | | | Testing performed at [facility], [address] [facility] [address], | | | [place] [address] REPORT STATUS | | | 07/09/2012 FINAL [...] + | Diagnosis | + + | Sepsis, unspecified Sepsis | + + | Bilateral ankle [...] polyarthritis, site unspecified | + + | ESRD (end stage [...]
--- OUTSIDE RECORDS SUMMARY | ~2019-12-30 | XMS | Encounter Summary ---
Demographics + + + | Address | [address] | | | [place] [address] | + + + | Home Phone | | + + + | Preferred Language | Unknown | + + + | Marital Status | Single | + + + | Rastafarian Affiliation | Unknown | + + + | Race | or | + + + | Ethnic Group | Not or | + + + Author + + + | Author | [facility] [employer] [facility] | + + + | Organization | [facility] [employer] [facility] | + + + | Address [...] Team Providers + +------+ + | Care Door Trimmer Name | Role | Phone | [...] Tomer | [address] | (reschedule [facility]) | | | | [address] [place], | [place], [place] | | | | | [place] [address] | [address] | | | | | [phone] | | | +--------+ + + + [...]
--- OUTSIDE RECORDS SUMMARY | ~2019-12-30 | XMS | Encounter Summary ---
Demographics + + + | Address | [address] | | | [place] [address] | + + + | Home Phone [...] Team Providers + +------+ + | Care Collator Operator Name | Role | Phone | + +------+ + PCP | Unavailable | + +------+ + Encounter Details +--------+ + + + + | Date | Type | Department | Care Team | Description | +--------+ + + + + | 05/06/ | Hospital | [facility] | Oskar Meyer MD | ESRD (end stage | | 2012 | Encounter | [facility] | [address] | renal disease) ([facility]) | | | | [address] | [place], [place] | | | | | [place], [place] | [address] | | | | | [address] | [phone] | | | | | [phone] | | | +--------+ + + + [...] 05/06/121717 Date of Service: 05/06/121716 Status: Signed Yarn Examiner Skeins: Vaishnavi Robertson RN (Registered Nurse) Reviewed discharge [...] 05/06/121653 Date of Service: 05/06/121653 Status: Signed Yarn Examiner Skeins: Kelley Toussaint RPH (Pharmacist) Renal Dosing Monitoring: Carol Stanton 47 y.o. male Pharmacy dosing for renal function per Dr. Meyer SCr 5.76, est. CrCl = 16 ml/min Plan per protocol: Medications dosed appropriately for current renal function. Pharmacy will continue monitoring patient for appropriate dosing per renal function. 05/06/2012 4:53 PM Pharmacist: Kelley Toussaint onver quique Transaction, Provider Unknown - 05/06/2012 2:01 PM PST Progress Notes by Vaishnavi Mccall RN at 05/06/12 1401 Author: Vaishnavi Mccall RN Service: (none) Author Type: Registered Nurse Filed: 05/06/12 1401 Date of Service: 05/06/12 140 Status: Signed Yarn Examiner Skeins: Vaishnavi Mccall RN (Registered Nurse) Passed onto [facility] INSULATING MACHINE OPERATOR that HD cath was accessed by Dr. Terry. Reminder to INSULATING MACHINE OPERATOR that Dr. Terry will need to re-heparinize the HD cath or the HD RN will need to be called to heparinize li ne. Dr. Terry stated he will makes sure PIV works then will heparinize. Vaishnavi Mccall RN 05/06/2012 2:04 PM docume nted in this encounter H&P Notes Oskar Meyer MD - 05/06/2012 1:30 PM PST H&P by Oskar Meyer MD at 05/06/12 133 Author: Oskar Meyer MD Service: Vascular Surgery Author Type: Physician Filed: 05/06/12 1937 Date of Service: 05/06/121329 Status: Signed Yarn Examiner Skeins: Oskar Meyer MD (Physician) [facility] Service: Vascular Surgery Admission History & Physical CHIEF COMPLAINT: ESRD HISTORY OF PRESENT ILLNESS The patient is a 47 y.o. male with PMH significant for DM and ESRD presents today for creat ion of new remote computer terminal operator access. He is currently dialyzing via a right IJ permacath. He is amb idextrous and he does not care for which side the fistula is placed. He has clot seen on ve in mapping. History of IVDA. Denies fever or chills. REVIEW OF SYSTEMS Negative except for pertinent [...] W/ EGD; Surgeon: John Singleton MD; Location: [facility]; rvice: Gastroenterology; Laterality: N/A; Allergies Allergen Reactions Lisinopril Other (See Comments) [...] tablet by mouth daily. 30 tablet 1 calcitRIOL (ROCALTROL) 0.25 MCG capsule Take 1 [...] hemodialysis on dialysis days 17 Doses 0 ergocalciferol (DRISDOL) 48630 UNITS capsule Take 1 capsule by mouth once a week. 3 ca psule 0 History reviewed. No pertinent family history. History Social History Marital Status: Spouse Name: N/A Number of Children: N/A Years of Education: N/A Occupational History Not on file. Social History Main Topics Smoking status: Never Smoker Smokeless tobacco: Never Used Alcohol Use: No Drug Use: Yes Special: Marijuana, Other-see comments last used marijuana on 04/29/12 Sexually Active: Other Topics Concern Not on file Social History Narrative , LIVES WITH [employer]; KIDSUNEMPLOYED BEFORE WORKED AT [employer]/ [employer] ([place])MOKE NONE ETOH QUIT 15 YEARS AGODRUGS: USES METHAMPHETAMINES PER PATIENTF ATHER HAS COLON CANCER, HEART DISEASEMOTHER 15 YEARS AGONO FH KIDNEY PROBLEMS. PHYSICAL EXAM Vital Signs: BP 126/67 | Pulse 81 | Temp(Src) 97.5 F (36.4 C) (Skin) | Resp 16 | Ht 1.702 m (5' 7") | Wt 80.9 kg (178 lb 5.6 oz) | BMI 27.93 kg/m2 | SpO2 100% Exam: HEENT - oropharynx clear; poor oral hygiene CV - RRR Lungs - Clear Abd - soft, NT/ND Ext - palpable radial and brachial pulses. Skin - multiple rash and lesions across body and arms. DATA CBC: Lab Results Component Value Date WBC 7.4 05/02/2012 RBC 2.94* 05/02/2012 HGB 9.2* 05/02/2012 HCT 26.9* 05/02/2012 MCV 91.8 05/02/2012 MCH 31.3 05/02/2012 MCHC 34.1 05/02/2012 RDW 46.8 05/02/2012 PLT 75* 05/02/2012 MPV 6.8 05/02/2012 DIFFTYPE MANUAL 05/02/2012 BMP: Lab Results Component Value Date NA 143 05/02/2012 K 3.5 05/02/2012 CL 109 05/02/2012 CO2 20* 05/02/2012 ANIONGAP 18 05/02/2012 GLUF 145* 05/02/2012 BUN 30* 05/02/2012 CREATININE 5.21* 05/02/2012 BCR 6 05/02/2012 CA 7.5* 05/02/2012 CA 6.1* 04/02/2012 EGFR 13* 05/02/2012 PROBLEM LIST Active Problems: * No active hospital problems. * ASSESSMENT & PLAN 47 yo male with DM and ESRD needing correction dialysis access. Will decide on location for access in OR with ultrasound. PARQ done and consent was obtained. Disposition: OR Code Status: Prior Primary Care Physician: [facility] Oskar Meyer MD 05/06/2012 documented in this encoun ter Procedure Notes Conversion Transaction, Provider Unknown - 05/02/2012 2:17 PM PSTFormatting of this note m ight be different from the original. Pre-Procedure Instructions by Pina Bautista RN at 05/02/12 971 Author: Pina Bautista RN Service: (none) Author Type: Registered Nurse Filed: 05/02/12 1945 Date of Service: 11/09/12 1417 Status: Signed Yarn Examiner Skeins: Pina Bautista RN (Registered Nurse) Spoke with HARDIK Watters--pt. Nurse. Pt. Getting ready to go home today.Was admitted for GI ble ed. She can not order pre op labs because pt. Was admitted for something different. Advised can call pt. When he gets home to verify info. Over the phone, if needed. Labs reviewed and history reviewed by me that was in chart. Per anesthesia guidelines pt. Will need repeat CBC , BMP on admission for surgery 05/06/12 for Left AV fistula. Pt. Unable to go thru PAS. docume nted in this encounter Miscellaneous Notes Op Note - Oskar Meyer MD - 05/06/2012 6:04 PM PSTFormatting of this note might be differen t from the original. Op Note signed by Oskar Meyer MD at 05/11/12 1001 Author: Oskar Meyer MD Service: (none) Author Type: Physician Filed: 05/11/12 1001 Date of Service: 05/06/121803 Status: Signed Yarn Examiner Skeins: Oskar Meyer MD (Physician) CAROL STANTON Date of : 1965 PREOPERATIVE DIAGNOSES 1. Endstage renal disease. 2. Need for dialysis access. POSTOPERATIVE DIAGNOSES 1. Endstage renal disease. 2. Need for dialysis access. PROCEDURE Left brachial-basilic fistula creation. SURGEON Oskar Meyer MD UROLOGIST None. ANESTHESIA General endotracheal anesthesia. ESTIMATED BLOOD LOSS Minimal. FLUIDS GIVEN 800 mL of crystalloid. INDICATIONS Mr. Stanton is a 47-year-old gentleman with diabetes and endstage renal disease who is currently dialyzing by a right IJ PermCath. He was referred to vascular surgery for a long-term dialysis access. On preoperative vein mapping of the upper extremities he was found to have clot in both the cephalic veins; however, his cephalic veins appeared to be without clot and of good size. FINDINGS His basilic vein was of decent quality and the brachial-basilic fistula was created. It was a good thrill at the end of the case. DESCRIPTION OF PROCEDURE The patient was properly identified and brought to the operating room. The patient was placed supine on the operating table and general endotracheal anesthesia was induced. A bedside ultrasound was then performed of both upper extremities revealing that the cephalic veins were full of thrombus and not of good size; however, the basilic veins in both lungs were of adequate size and free of thrombus. The patient's left arm was then prepped and draped in the usual sterile fashion. An incision was then made in the left antecubital fossa and the basilic vein and the brachial artery was identified and dissected free. A end-to-side anastomosis was then performed using the basilic vein onto the brachial artery and using 6-0 Prolene sutures in a running fashion prior to completion of anastomosis, the artery was back-bled and forward bled. After completion of the anastomosis, there was a strong thrill in the fistula with good dopplerable signals in both the radial and ulnar arteries. The wound was then irrigated and hemostasis was assured. The deep dermal tissue was then closed with 3-0 Vicryl and the skin was closed with 4-0 Monocryl in a subcuticular fashion. Mastisol and Steri-Strips were then placed. At the end of the case, sponge, needle, and instrument counts were correct x2. There were no apparent complications. The patient was then taken to PACU in stable condition. P/ A/[facility]/[id number] OSKAR MEYER MD p Note - Oskar Meyer MD - 05/06/2012 3:47 PM PST Brief Op Note by Oskar Meyer MD at 05/06/12 6474 Author: Oskar Meyer MD Service: Vascular Surgery Author Type: Physician Filed: 05/06/12 1546 Date of Service: 05/06/121546 Status: Signed Yarn Examiner Skeins: Oskar Meyer MD (Physician) [facility] Service: Vascular Surgery Brief Op Note Pre-operative Diagnosis: ESRD and need for remote computer terminal operator dialysis access Post-operative Diagnosis: Same Procedure(s): Left arm brachiobasilic fistula creation Surgeon: Oskar Meyer MD Program Management Professional(s): None Anesthesia: General endotrachial anesthesia Estimated Blood Loss: Minimal Other: IV Fluids: 800 ml Indications: See pre-operative history and physical. Findings: Clotted cephalic vein bilaterally. Basilic vein of good quality. Complications: None apparent Condition: Stable See dictated operative report for full details. Oskar Meyer MD 05/06/2012 documented in this encoun ter Plan of [...] EXTERNAL LAB | | Testing performed at [facility];[address] [place] [address];[place] [address] MRSA PCR | | | NEGATIVE Testing performed at | | | [facility];[address] [place] [address];[place] [address] | | + + + + +---------+ [...]
--- OUTSIDE RECORDS SUMMARY | ~2019-12-30 | XMS | Encounter Summary ---
Demographics + + + | Address | [address] | | | [place] [address] | + + + | Home Phone | | + + + | Preferred Language | Unknown | + + + | Marital Status | Single | + + + | Sabianism Affiliation | Unknown | + + + | Race | or | + + + | Ethnic Group | Not or | + + + Author + + + | Author | [facility] | + + + | Organization | [facility] [employer] [facility] | + + + | Address | [...] Providers + +------+ + | Care Road Supervisor Name | Role | Phone | [...] | | | | | [address] [place], | [place], [place] | | | | | [place] [address] | [address] | | | | | [phone] | | | +--------+ + + + [...]
--- OUTSIDE RECORDS SUMMARY | ~2019-12-30 | XMS | Encounter Summary ---
Demographics + + + | Address | [address] | | | [place] [address] | + + + | Home Phone [...] Team Providers + +------+ + | Care Atm Manager Name | Role | Phone | + +------+ + PCP | Unavailable | + +------+ + Encounter Details +--------+ + + + + | Date | Type | Department | Care Team | Description | +--------+ + + + + | 04/28/ | Hospital | [facility] | [place], | Acute respiratory | | 2016 - | Encounter | [facility] | Nehal Head, | failure with hypoxia | | | | CLINICAL DECISION | MD Je[address] | ([facility]); Acute | | 04/30/ | | [address] | [place], | respiratory failure | | 2016 | | [place], [place] | [place] [address] | with hypoxia and | | | | [address] | [phone] | hypercapnia ([facility]) | | | | [phone] | | | +--------+ + + + [...] Date of Service: 04/30/16 1029 Status: Addendum Painter Barrel: Khanh Rangel MD (Physician) Related Notes: Original Note by Khanh Rangel MD (Physician) filed at 04/30/16 1041 [facility] Service: Hospitalist Discharge Summary Date of [...] who was brought t o the [facility] due to shortness of breath. Per report, [...] and has had nausea and vomiting. In [facility], he was found to be in severe [...] thrombosis, polysubstance abuse, who was brought to [facility] due to sh ortness of breath. Per [...] CENTER ENDOSCOPY; Se rvice: Gastroenterology; Laterality: N/A; Allergies [...] on file. [place]: [place] [address] [place] [id number] In 1 week Medication List START taking [...] disc harge summary. Khanh Rangel MD 04/30/2016 docubia stratton in this encounter Medications at [...] Note by Ema Rodriguez PT at 04/30/16 1405 Author: Ema Rodriguez PT Service: (none) Author Type: Physical Therapist Filed: 04/30/16 0342 Date of Service: 04/30/161404 Status: Signed Painter Barrel: Ema Rodriguez PT (Physical Therapist) 04/30/16 3039 PT Last Visit PT Received On 04/30/16 Reason for Treatment Deconditioning Requires PT Follow Up Yes Assistance Required 1 person Technology Recruiter Needed No Precautions Other Precautions falls Other [...] (none) Author Type: Registered Nurse Filed: 04/30/16 4580 Date of Service: 04/30/161357 Status: Signed Painter Barrel: Alexis Banegas RN (Registered Nurse) Pt discharged [...] 04/30/16811 Date of Service: 04/30/16811 Status: Signed Painter Barrel: Elana Bhatt RPH (Pharmacist) Per nurse note, [...] 04/30/16407 Date of Service: 04/30/16404 Status: Signed Painter Barrel: Madelyn Dimas RN (Registered Nurse) Patient to have hemodialysis at 0830 today. Continues to be hypertensive with SBP 140-160s. Blood glucose has been elevated at 300- . Madelyn Dimas RN onver quique Transaction, Provider Unknown - 04/29/2016 3:59 PM PST Progress Notes by Ambika Hanson RPH at 04/29/16 5639 Author: Ambika Hanson RPH Service: (none) Author Type: Pharmacist Filed: 04/29/161558 Date of Service: 04/29/161558 Status: Signed Painter Barrel: Ambika Hanson RPH (Pharmacist) Drug-Drug Interaction Report Ondansetron / QT Prolonging Agents 2 Significance: Major Warning: Additive QT interval prolongation may occur during coadministration of ondansetron and levofloxacin. Onset: Rapid Document Level: Possible Interacting Medications/Orders: Ondansetron Non-oral, Systemic QT Prolonging Agents 2 Oral or Non-Oral, Systemic 1. ondansetron Order ([id number]): ondansetron (ZOFRAN) injection 4 mg Route: Intravenous Start: 04/29/2016 1543 End: none Frequency: Every 6 Hours PRN 1. levofloxacin Order ([id number]): levofloxacin (LEVAQUIN) IVPB 250 mg Route: Intravenous [...] Notes by Fela Mayberry MD at 04/29/16 120 Author: Fela Mayberry MD Service: (none) Author Type: Physician Filed: 04/29/161205 Date of Service: 04/29/161203 Status: Signed Painter Barrel: Fela Mayberry MD (Physician) Hospital Problem List: [...] HD done emergently 04/28 No indication for MACHINE ROOM ENGINEER today ESRD As above Hyponatremia. Sec to [...] Date of Service: 04/29/16 1142 Status: Signed Painter Barrel: Venita Mendes PT (Physical Therapist) 04/29/16 1142 PT Last Visit PT Received On 04/29/16 Reason for Treatment Deconditioning Requires PT Follow Up Awaiting tx order Follow up PT Only? Yes (Ongoing amb and OOB assessment) Focus for Next Treatment Equipment Trial (FWW) PT Eval/Reassessment Date 04/29/16 Assistance Required 1 person;2 person (2nd person lines) Technology Recruiter Needed No Home Environment Type of Home Home one story Home Exterior Layout 1-3 steps;Rail bilateral Home Interior Layout Lives on main level with bedroom/bathroom Bathroom Shower/Tub Tub/shower unit Bathroom Toilet Standard Bathroom Equipment Shower chair Bathroom Accessibility Accessible via walker Home Equipment Cane single point Prior Function Level of Harrison Independent with functional mobility;Independent with ADLs;Independe nt with IADLs Falls in Past Year No Lives With Spouse;Adult child(gary) (Acts as caregiver for younger son w/ CP, older son helps pt) Employment On disability [employer]isure ([employer]) RUE Assessment RUE Assessment X (Limited d/t [...] Barriers to Discharge Physical Deficits Impacting Functional Harrison Recommendation Comments Pt demonstrates good strength and [...] Required 1 person;2 person (2nd person lines) Technology Recruiter Needed No Precautions Other Precautions Fall risk Other Comments Comments Chart reviewed. Pt is a 51 y.o. w/ significant PMH of T2DM, ESRD, on HD, hypothyr oidism, gout, asthma HTN, HPL, anemia of chronic disease, R IJ thrombosis, polysubstance abu se. Pt has reported URI symptoms in recent weeks. Pt transferred from [facility] d/t hy poxic respiratory failure. Pt supine in [...] Standardized Test Tinetti Performance Oriented Mobility Assessment 15 (High risk for falls) Modalities Modalities Other therapy Other Therapy Education on use of call light, PT POC, use of assistive device in future [facility] d/t balance issues. Activity Tolerance Activity Tolerance [...] Barriers to Discharge Physical Deficits Impacting Functional Harrison Recommendation Comments Pt demonstrates good strength and [...] Monge RN at 04/29/16 1029 Author: Carmina Mogne RN Service: (none) Author Type: Hand Crown Pouncer Filed: 04/29/16 1032 Date of Service: 04/29/16 1029 Status: Signed Painter Barrel: Carmina Monge RN (Hand Crown Pouncer) 04/29/16 1024 Discharge Planning Evaluation Admitting Diagnosis [...] Potter Relationship to Patient spouse Phone number [phone] Mental Status Oriented Prior functional status independent Anticipated Discharge Plan Post Acute Care Needs (Dialysis M-W-F) Plan communicated to patient/family Yes Resources Financial concerns No Transportation issues No Patient/Family concerns No Prescription Plan Yes Name of Pharmacy [facility] Previous home health equipment No Vascular access device Yes Anticipated Disposition Facility Type Home Met with patient and his Shyanne and discussed discharge planning, Pt is a 51 y.o., male admitted with respiratory failure. Pt lives in [place] with his and family. Pt states that he has good support and all t he help he needs. Pt's sister takes him to dialysis [facility] Pt denies needing and DME, no home [...] at 04/29/16829 Author: Nehal Simpson MD Service: Event Producer Author Type: Physician Filed: 04/29/16853 Date of Service: 04/29/16829 Status: Signed Painter Barrel: Nehal Simpson MD (Physician) [facility] Service: Event Producer Progress Note Carol Potter 51 y.o. Hospital [...] thrombosis, polysubstance abuse, who was brought to [facility] due to shortness of breath. Per [...] PLT MORPH 1+ Recent Labs Lab 04/29/16 0317 04/28/16 1828 04/28/16 1349 NA 139 136 136 [...] vs worsening infection. Will continue to [place] [facility] closely. ENDO: IDDM. POC glucose, SSI. Endotool [...] 04/29/16809 Date of Service: 04/29/16809 Status: Signed Painter Barrel: Curtis Victoria RPH (Pharmacist) Initiation of Vancomycin Pharmacy Dosing Carol Potter 51 y.o. male 1.702 m (5' 7") 85.4 kg (188 lb 4.4 oz) Body mass index is 29.48 kg/(m^2). Stark Body Weight: Adjusted Body Weight: CREATININE Date Value Ref Range Status 04/29/2016 7.5* 0.70 - 1.30 mg/dL Final Comment: Testing performed at [facility], [address] [place] [address] Estimated CrCl : CREATININE: 7.5 mg/dL ABNORMAL (04/29/167) Estimated creatinine clearance - 11.9 mL/min Indications: [...] Note by Marivel Sapp RN at 04/29/16 0340 Author: Marivel Sapp RN Service: (none) Author Type: Registered Nurse Filed: 04/29/16 0409 Date of Service: 04/29/160 Status: Signed Painter Barrel: Marivel Sapp RN (Registered Nurse) Pt extubated and tolerated well. He was cleaned up and provided oral care, fresh linens. Wi ll continue monitor. onver quique Transaction, Provider Unknown - 04/28/2016 4:18 PM PDT Therapy Progress Note by Devaughn Ramos PT at 04/28/16 1618 Author: Devaughn Ramos PT Service: (none) Author Type: Physical Therapist Filed: 04/28/16 1619 Date of Service: 04/28/16 1618 Status: Signed Painter Barrel: Devaughn Ramos PT (Physical Therapist) 04/28/16 1618 PT Last Visit PT Received On 04/28/16 Requires PT Follow Up On hold Other Comments Comments pt. intubated at this time will continue to f/u as appropriate onver quique Transaction, Provider Unknown - 04/28/2016 1:39 PM PDT Progress Notes by Ambika Hanson RPH at 04/28/16 1088 Author: Ambika Hanson RPH Service: (none) Author Type: Pharmacist Filed: 04/28/16 1339 Date of Service: 04/28/161338 Status: Signed Painter Barrel: Ambika Hanson RPH (Pharmacist) Patient is a HD patient. Adjusted Levofloxacin to 250mg IVPB Q48 hours. Next dose on 04/30 . (first dose was given at [facility]). No other changes at this time. onver quique Transaction, Provider Unknown - 04/28/2016 12:14 PM PDT Progress Notes by Franco Cesar RPH at 04/28/16 1214 Author: Franco Cesar RPH Service: Pharmacy Author Type: Pharmacist Filed: 04/28/164 Date of Service: 04/28/164 Status: Signed Painter Barrel: Franco Cesar RPH (Pharmacist) >> FRANCO CESAR [...] H&P by Nehal Simpson MD at 04/28/16 1149 Author: Nehal Simpson MD Service: Event Producer Author Type: Physician Filed: 04/29/16 0832 Date of Service: 04/28/16 1149 Status: Addendum Painter Barrel: Nehal Simpson MD (Physician) Related Notes: Original Note by Nehal Simpson MD (Physician) filed at 04/28 1438 [facility] Service: Event Producer Admission History & Physical Caroldianelys Potter 51 y.o. Date of Admission: 04/28/2016 Requesting Physician: Dr. Faulkner, Emergency Department, [facility] Indication for ICU Admission: hypoxic respiratory failure [...] polysubstance abuse, who was brought to the [facility] due to shortness o f breath. Per [...] and has had nausea and vomiting. 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 CURRENTLY UNEMPLOYED, BEFOR E WORKED AT [employer] IN [employer]. Quit METHAMPHETAMINES PER PATIENT after t he ARF in mar 2012. FATHER HAS COLON CANCER, HEART DISEASE, MOTHER 15 YEARS AGO. NO FH KIDNEY PROB LEMS. PHYSICAL EXAM VITAL SIGNS EXAM GEN: sedated and intubated NEURO: PERRLA, no facial asymmetry, moves all extremities well [place] 4 HEENT: with rubi-orbital edema, sclerae clear, [...] last 168 hours. LAB DATA reviewed from [facility] [employer] Xr Chest 1 View 04/28/2016 1. Interval [...] exacerbation ([facility]) Chronic steroid use ASSESSMENT & PLAN NEURO: [...] in our syste m, but levels from 2013 showed that this ranged between 127 to [...] Physician Filed: 04/30/16 1036 Date of Service: 04/30/161033 Status: Signed Painter Barrel: Fela Mayberry MD (Physician) The patient is [...] 04/28/16 1242 Author: Nehal Simpson MD Service: Event Producer Author Type: Physician Filed: 04/28/16 1432 Date of Service: 04/28/16 1242 Status: Addendum Painter Barrel: Nehal Simpson MD (Physician) Related Notes: Original Note by Nehal Simpson MD (Physician) filed at 04/28 1243 Procedure Orders: 1. Central line [[id number]] ordered by Nehal Simpson MD at 04/28/16 1242 Pre-procedure Diagnoses: 1. Acute respiratory failure with hypoxia (HCC) [J96.01] Post-procedure Diagnoses: 1. Acute respiratory failure with hypoxia (HCC) [J96.01] [facility] Service: Event Producer BEDSIDE PROCEDURE NOTE Central Line Date/Time: 04/28/2016 12:42 PM Performed by: NEHAL SIMPSON Authorized by: NEHAL SIMPSON Consent: The procedure was performed in an emergent situation. Risks and benefits: risks, benefits and alternatives were discussed Patient identity confirmed: verbally with patient and arm band Time out: Immediately prior to procedure a "time out" was called to verify the correct mahamed ent, procedure, equipment, ground support equipment assembler and site/side marked as required. Indications: vascular [...] fr om the original. Consult* by Fela Mabyerry MD at 04/28/16 1340 Author: Fela Mayberry MD Service: (none) Author Type: Physician Filed: 04/28/16 3477 Date of Service: 04/28/16 1340 Status: Signed Painter Barrel: Fela Mayberry MD (Physician) Hospital Problem List: [...] in to evaluate him for need for MACHINE ROOM ENGINEER. Background: The patient is a 51 y.o. male with significant past medical history of T2DM, ESRD, on HD, b ut still able to urinate and is on daily furosemide; hypothyroidism, gout, asthma on mainten ance Advair and chronic prednisone therapy. HTN, HPL, anemia of chronic disease, R IJ thro mbosis, polysubstance abuse, who was brought to the [facility] due to shortness of breath. Per report, [...] corroborate reports from his famil y. In [place], he was found to be in severe respiratory distress with diffuse wheezing, and hypoxemia (sats reported in the 80s), and so he was intubated and placed on the mechanical design technician al ventilator. Request for transfer was made [...] | EXTERNAL LAB: REBECA | Routin | 04/29/2016 | | Results [...] | EXTERNAL LAB: REBECA | Routin | 04/29/2016 | | Results [...] | | | Fingerstick | performed at [facility];[address] | | LAB | | | | [address];[place] | | | | | | [address] | | | | + + + [...] | | | Fingerstick | performed at [facility];[address] | | LAB | | | | [address];[place] | | | | | | [address] | | | | + + + [...] | | | | | performed at [facility], [address] | | | | | | [address] [facility], | | | | | | [place] [address] | | | | + + + + + + | Non- | 4.04 (L)Comment: Testing | 4.20 - 5.70 | EXTERNAL | | | Red Blood | performed at [facility], [address] | M/uL | LAB | | | Cells | [facility], | | | | | Counted | [place] [address] | | | | + + + + + + | Hemoglobin | 12.3 (L)Comment: Testing | 13.2 - 17.0 | EXTERNAL | | | | performed at [facility], [address] | g/dL | LAB | | | | [address], | | | | | | [place] [address] | | | | + + + + + + | Hematocrit, | 36.6 (L)Comment: Testing | 39.0 - 50.0 % | EXTERNAL | | | POC | performed at [facility], [address] | | LAB | | | | [address], | | | | | | [place] [address] | | | | + + + + + + | MCV | 90.6Comment: Testing | 80.0 - 100.0 fl | EXTERNAL | | | | performed at [facility], [address] | | LAB | | | | [address], | | | | | | [place] [address] | | | | + + + + + + | MCH | 30.5Comment: Testing | 27.0 - 34.0 pg | EXTERNAL | | | | performed at [facility], [address] | | LAB | | | | [address], | | | | | | [place] [address] | | | | + + + + + + | MCHC | 33.7Comment: Testing | 32.0 - 35.5 | EXTERNAL | | | | performed at [facility], [address] | g/dL | LAB | | | | [address], | | | | | | [place] [address] | | | | + + + + + + | RDW-CV | 53.8 (H)Comment: Testing | 37 - 53 fl | EXTERNAL | | | | performed at [facility], [address] | | LAB | | | | [address], | | | | | | [place] [address] | | | | + + + + + + | Platelet | 181Comment: Testing | 150 - 400 K/uL | EXTERNAL | | | Count | performed at [facility], [address] | | LAB | | | Plasma | [address], | | | | | | [place] [address] | | | | + + + + + + | MPV | 7.8Comment: Testing | fl | EXTERNAL | | | | performed at [facility], [address] | | LAB | | | | [address], | | | | | | [place] [address] | | | | + + + + + + | Differentia | AUTOMATEDComment: | | EXTERNAL | | | l Type | Testing performed at | | LAB | | | | [facility], [address] | | | | | | [place], [place] | | | | | | [address] | | | | + + + + + + | % Segmented | 97.03Comment: Testing | % | EXTERNAL | | | | performed at [facility], [address] | | LAB | | | Neutrophils | [address], | | | | | | [place] [address] | | | | + + + + + + | % | 1.58Comment: Testing | % | EXTERNAL | | | Lymphocytes | performed at [facility], [address] | | LAB | | | | [address], | | | | | | [place] [address] | | | | + + + + + + | % Monocytes | 1.34Comment: Testing | % | EXTERNAL | | | | performed at [facility], [address] | | LAB | | | | [address], | | | | | | [place] [address] | | | | + + + + + + | % | 0.00Comment: Testing | % | EXTERNAL | | | Eosinophils | performed at [facility], [address] | | LAB | | | | [address], | | | | | | [place] [address] | | | | + + + + + + | % Basophils | 0.05Comment: Testing | % | EXTERNAL | | | | performed at [facility], [address] | | LAB | | | | [address], | | | | | | [place] [address] | | | | + + + + + + | Absolute | 30.78 (H)Comment: | 1.90 - 7.40 | EXTERNAL | | | Segmented | Testing performed at | K/uL | LAB | | | Neutrophils | [facility], [address] | | | | | | [place] | | | | | | [address] | | | | + + + + + + | Absolute | 0.50 (L)Comment: Testing | 1.00 - 3.90 | EXTERNAL | | | Lymphocytes | performed at [facility], [address] | K/uL | LAB | | | | [address], | | | | | | [place] [address] | | | | + + + + + + | Absolute | 0.43Comment: Testing | 0.00 - 0.80 | EXTERNAL | | | Monocytes | performed at [facility], [address] | K/uL | LAB | | | | [address], | | | | | | [place] [address] | | | | + + + + + + | Absolute | 0.00Comment: Testing | 0.00 - 0.50 | EXTERNAL | | | Eosinophils | performed at [facility], [address] | K/uL | LAB | | | | [address], | | | | | | [place] [address] | | | | + + + + + + | Absolute | 0.02Comment: Testing | 0.00 - 0.10 | EXTERNAL | | | Basophils | performed at [facility], [address] | K/uL | LAB | | | | [address], | | | | | | [place] [address] | | | | + + + + + + | RBC | RBC AND PLT MORPHOLOGY | | EXTERNAL | | | Morphology | APPEAR NORMALComment: | | LAB | | | | 2+TOXIC | | | | | | GRANULATIONTesting | | | | | | performed at [facility], [address] | | | | | | [address], | | | | | | [place] [address] | | | | + + + + + + | Differentia | SLIDE SCANNED, AGREES | | EXTERNAL | | | l Comments | WITH AUTOMATED | | LAB | | | | RESULTS.Comment: Testing | | | | | | performed at [facility], [address] | | | | | | [address], | | | | | | [place] [address] | | | | + + + [...] EXTERNAL | | | | performed at [facility], [address] | | LAB | | | | [address], | | | | | | [place] [address] | | | | + + + [...] EXTERNAL | | | | performed at [facility], [address] | | LAB | | | | [address], | | | | | | [place] [address] | | | | + + + [...] | | | | | [place] [address] | | | | + + + + + + | K | 4.7Comment: Testing | 3.5 - 4.9 | EXTERNAL | | | | performed at [facility], [address] | mmol/L | LAB | | | | [address], | | | | | | [place] [address] | | | | + + + + + + | Cl | 96 (L)Comment: Testing | 99 - 109 mmol/L | EXTERNAL | | | | performed at [facility], [address] | | LAB | | | | [address], | | | | | | [place] [address] | | | | + + + + + + | CO2 | 22 (L)Comment: Testing | 23 - 32 mmol/L | EXTERNAL | | | | performed at [facility], [address] | | LAB | | | | [address], | | | | | | [place] [address] | | | | + + + + + + | Anion Gap | 21 (H)Comment: Testing | 5 - 20 mmol/L | EXTERNAL | | | | performed at [facility], [address] | | LAB | | | | [address], | | | | | | [place] [address] | | | | + + + + + + | Glucose, | 248 (H)Comment: Testing | 65 - 99 mg/dL | EXTERNAL | | | Fasting | performed at [facility], [address] | | LAB | | | | [address], | | | | | | [place] [address] | | | | + + + + + + | BUN | 74 (H)Comment: Testing | 8 - 25 mg/dL | EXTERNAL | | | | performed at [facility], [address] | | LAB | | | | [address], | | | | | | [place] [address] | | | | + + + [...] | | | | | [place] [address] | | | | + + + + + + | Calcium | 7.8 (L)Comment: Testing | 8.5 - 10.5 | EXTERNAL | | | | performed at [facility], [address] | mg/dL | LAB | | | | [address], | | | | | | [place] [address] | | | | + + + [...] | | | | | | [address], | | | | | | [place] [address] | | | | + + + [...] | | | Fingerstick | performed at [facility];[address] | | LAB | | | | [address];[place] | | | | | | [address] | | | | + + + [...] | | | Fingerstick | performed at [facility];[address] | | LAB | | | | [address];[place], [place] | | | | | | [address] | | | | + + + [...] EXTERNAL | | | | performed at [facility];[address] | mmol/L | LAB | | | | [address];[place] | | | | | | [address] [...] EXTERNAL | | | | performed at [facility] | | LAB | | | | [address] [facility];[place], [place] | | | | | | [address] | | | | + + + [...] EXTERNAL | | | | performed at [facility];[address] | | LAB | | | | [address];[place], [place] | | | | | | [address] | | | | + + + [...] | | | Fingerstick | performed at [facility];[address] | | LAB | | | | [address];[place] | | | | | | [address] | | | | + + + [...] | | | Fingerstick | performed at [facility];[address] | | LAB | | | | [address];[place], [place] | | | | | | [address] | | | | + + + [...] | | | | | performed at [facility];[address] | | | | | | [facility];[place], [place] | | | | | | [address] | | | | + + + [...] | | | | | performed at [facility];[address] | | | | | | [address];[place] | | | | | | [address] | | | | + + + + + + | Non- | 4.18 (L)Comment: Testing | 4.20 - 5.70 | EXTERNAL | | | Red Blood | performed at [facility];[address] | M/uL | LAB | | | Cells | [address];[place] | | | | | Counted | [address] | | | | + + + + + + | Hemoglobin | 12.3 (L)Comment: Testing | 13.2 - 17.0 | EXTERNAL | | | | performed at [facility];[address] | g/dL | LAB | | | | [address];[place] | | | | | | [address] | | | | + + + + + + | Hematocrit, | 37.9 (L)Comment: Testing | 39.0 - 50.0 % | EXTERNAL | | | POC | performed at [facility];[address] | | LAB | | | | [address];[place] | | | | | | [address] | | | | + + + + + + | MCV | 90.8Comment: Testing | 80.0 - 100.0 fl | EXTERNAL | | | | performed at [facility];[address] | | LAB | | | | [address];[place] | | | | | | [address] | | | | + + + + + + | MCH | 29.5Comment: Testing | 27.0 - 34.0 pg | EXTERNAL | | | | performed at [facility];[address] | | LAB | | | | [address];[place] | | | | | | [address] | | | | + + + + + + | MCHC | 32.4Comment: Testing | 32.0 - 35.5 | EXTERNAL | | | | performed at [facility];[address] | g/dL | LAB | | | | [address];[place] | | | | | | [address] | | | | + + + + + + | RDW-CV | 53.8 (H)Comment: Testing | 37 - 53 fl | EXTERNAL | | | | performed at [facility];[address] | | LAB | | | | [address];[place] | | | | | | [address] | | | | + + + + + + | Platelet | 188Comment: Testing | 150 - 400 K/uL | EXTERNAL | | | Count | performed at [facility];888 | | LAB | | | Plasma | [address];[place] | | | | | | [address] | | | | + + + + + + | MPV | 7.7Comment: Testing | fl | EXTERNAL | | | | performed at [facility];[address] | | LAB | | | | [address];[place] | | | | | | [address] | | | | + + + + + + | Differentia | MANUALComment: Testing | | EXTERNAL | | | l Type | performed at [facility];[address] | | LAB | | | | [address];[place] | | | | | | [address] | | | | + + + + + + | Segmented | 88Comment: Testing | % | EXTERNAL | | | Neutrophils | performed at [facility];[address] | | LAB | | | Manual | [address];[place] | | | | | | [address] | | | | + + + + + + | % Bands | 10Comment: Testing | % | EXTERNAL | | | | performed at [facility];[address] | | LAB | | | | [address];[place] | | | | | | [address] | | | | + + + + + + | Lymphocytes | 1Comment: Testing | % | EXTERNAL | | | Manual | performed at [facility];[address] | | LAB | | | | [address];[place] | | | | | | [address] | | | | + + + + + + | Monocytes | 1Comment: Testing | % | EXTERNAL | | | Manual | performed at [facility];[address] | | LAB | | | | [address];[place] | | | | | | [address] | | | | + + + + + + | Absolute | 33.11 (H)Comment: | 1.90 - 7.40 | EXTERNAL | | | Neutrophils | Testing performed at | K/uL | LAB | | | | [facility];[address];[place] [address] | | | | + + + + + + | Bands | 3.76 (H)Comment: Testing | 0.00 - 0.20 | EXTERNAL | | | Manual | performed at [facility];888 | K/uL | LAB | | | | [address];[place] | | | | | | [address] | | | | + + + + + + | Absolute | 0.38 (L)Comment: Testing | 1.00 - 3.90 | EXTERNAL | | | Lymphocytes | performed at [facility];[address] | K/uL | LAB | | | | [address];[place] | | | | | | [address] | | | | + + + + + + | Absolute | 0.38Comment: Testing | 0.00 - 0.80 | EXTERNAL | | | Monocytes | performed at [facility];[address] | K/uL | LAB | | | | [address];[place] | | | | | | [address] | | | | + + + + + + | RBC | NORMAL PLT MORPHComment: | | EXTERNAL | | | Morphology | 1+ANISOTesting | | LAB | | | | performed at [facility];[address] | | | | | | [address];[place] | | | | | | [address] | | | | | | | [...] | | | Fingerstick | performed at [facility];[address] | | LAB | | | | [address];[place] | | | | | | [address] | | | | + + + [...] | | | | | | [place] [address] | | | | + + + + + + | T3, Total | 40 (L)Comment: Testing | 80 - 200 ng/dL | EXTERNAL | | | | performed at [facility], [address] | | LAB | | | | [place] | | | | | | [place] [address] | | | | + + + [...] | | | | | performed at [facility], [address] | | | | | | [place] | | | | | | [place] [address] | | | | + + + + + + | Non- | 4.32Comment: Testing | 4.20 - 5.70 | EXTERNAL | | | Red Blood | performed at [facility], [address] | M/uL | LAB | | | Cells | [address], | | | | | Counted | [place] [address] | | | | + + + + + + | Hemoglobin | 12.9 (L)Comment: Testing | 13.2 - 17.0 | EXTERNAL | | | | performed at [facility], [address] | g/dL | LAB | | | | [address], | | | | | | [place] [address] | | | | + + + + + + | Hematocrit, | 40.3Comment: Testing | 39.0 - 50.0 % | EXTERNAL | | | POC | performed at [facility], [address] | | LAB | | | | [address], | | | | | | [place] [address] | | | | + + + + + + | MCV | 93.2Comment: Testing | 80.0 - 100.0 fl | EXTERNAL | | | | performed at [facility], [address] | | LAB | | | | [address], | | | | | | [place] [address] | | | | + + + + + + | MCH | 29.8Comment: Testing | 27.0 - 34.0 pg | EXTERNAL | | | | performed at [facility], [address] | | LAB | | | | [address], | | | | | | [place] [address] | | | | + + + + + + | MCHC | 32.0Comment: Testing | 32.0 - 35.5 | EXTERNAL | | | | performed at [facility], [address] | g/dL | LAB | | | | [address], | | | | | | [place] [address] | | | | + + + + + + | RDW-CV | 55.6 (H)Comment: Testing | 37 - 53 fl | EXTERNAL | | | | performed at [facility], [address] | | LAB | | | | [address], | | | | | | [place] [address] | | | | + + + + + + | Platelet | 182Comment: Testing | 150 - 400 K/uL | EXTERNAL | | | Count | performed at [facility], [address] | | LAB | | | Plasma | [address], | | | | | | [place] [address] | | | | + + + + + + | MPV | 8.0Comment: Testing | fl | EXTERNAL | | | | performed at [facility], [address] | | LAB | | | | [address], | | | | | | [place] [address] | | | | + + + + + + | Differentia | MANUALComment: Testing | | EXTERNAL | | | l Type | performed at [facility], [address] | | LAB | | | | [address], | | | | | | [place] [address] | | | | + + + + + + | Segmented | 90Comment: Testing | % | EXTERNAL | | | Neutrophils | performed at [facility], [address] | | LAB | | | Manual | [address], | | | | | | [place], [place] [address] | | | | + + + + + + | % Bands | 6Comment: Testing | % | EXTERNAL | | | | performed at [facility], [address] | | LAB | | | | [address], | | | | | | [place] [address] | | | | + + + + + + | Lymphocytes | 2Comment: Testing | % | EXTERNAL | | | Manual | performed at [facility], [address] | | LAB | | | | [address], | | | | | | [place] [address] | | | | + + + + + + | Monocytes | 2Comment: Testing | % | EXTERNAL | | | Manual | performed at [facility], [address] | | LAB | | | | [address], | | | | | | [place] [address] | | | | + + + + + + | Absolute | 36.66 (H)Comment: | 1.90 - 7.40 | EXTERNAL | | | Neutrophils | Testing performed at | K/uL | LAB | | | | [facility], [address] [facility] | | | | | | [place] | | | | | | [address] | | | | + + + + + + | Bands | 2.44 (H)Comment: Testing | 0.00 - 0.20 | EXTERNAL | | | Manual | performed at [facility], [address] | K/uL | LAB | | | | [address], | | | | | | [place] [address] | | | | + + + + + + | Absolute | 0.81 (L)Comment: Testing | 1.00 - 3.90 | EXTERNAL | | | Lymphocytes | performed at [facility], [address] | K/uL | LAB | | | | [address], | | | | | | [place] [address] | | | | + + + + + + | Absolute | 0.81 (H)Comment: Testing | 0.00 - 0.80 | EXTERNAL | | | Monocytes | performed at [facility], [address] | K/uL | LAB | | | | [address], | | | | | | [place] [address] | | | | + + + + + + | RBC | 1+Comment: ANISONORMAL | | EXTERNAL | | | Morphology | PLT MORPHTesting | | LAB | | | | performed at [facility], [address] | | | | | | [place], | | | | | | [place] [address] | | | | | | | [...] EXTERNAL | | | | performed at [facility], [address] | uIU/mL | LAB | | | | [address], | | | | | | [place] [address] | | | | + + + [...] | | | (REF) | performed at [facility], [address] | | LAB | | | | [address], | | | | | | [place] [address] | | | | + + + [...] EXTERNAL | | | | performed at [facility], [address] | | LAB | | | | [address], | | | | | | [place] [address] | | | | + + + [...] EXTERNAL | | | | performed at [facility], [address] | | LAB | | | | [address], | | | | | | [place] [address] | | | | + + + [...] | EXTERNAL | | | A1c | [facility] Diabetes | | LAB | | | [...] | | | | | performed at [facility], [address] | | | | | | [address], | | | | | | [place] [address] | | | | + + + [...] | | | | | performed at [facility], [address] | | | | | | [place], | | | | | | [place] [address] | | | | + + + [...] | | | | | [place] [address] | | | | + + + + + + | K | 5.2 (H)Comment: SPECIMEN | 3.5 - 4.9 | EXTERNAL | | | | NOT HEMOLYZEDTesting | mmol/L | LAB | | | | performed at [facility], [address] | | | | | | [address], | | | | | | [place] [address] | | | | + + + + + + | Cl | 101Comment: Testing | 99 - 109 mmol/L | EXTERNAL | | | | performed at [facility], [address] | | LAB | | | | [address], | | | | | | [place] [address] | | | | + + + + + + | CO2 | 23Comment: Testing | 23 - 32 mmol/L | EXTERNAL | | | | performed at [facility], [address] | | LAB | | | | [address], | | | | | | [place] [address] | | | | + + + + + + | Anion Gap | 20Comment: Testing | 5 - 20 mmol/L | EXTERNAL | | | | performed at [facility], [address] | | LAB | | | | [address], | | | | | | [place] [address] | | | | + + + + + + | Glucose, | 194 (H)Comment: Testing | 65 - 99 mg/dL | EXTERNAL | | | Fasting | performed at [facility], [address] | | LAB | | | | [address], | | | | | | [place] [address] | | | | + + + + + + | BUN | 40 (H)Comment: Testing | 8 - 25 mg/dL | EXTERNAL | | | | performed at [facility], [address] | | LAB | | | | [address], | | | | | | [place] [address] | | | | + + + + + + | Creatinine | 7.5 (H)Comment: Testing | 0.70 - 1.30 | EXTERNAL | | | | performed at [facility], [address] | mg/dL | LAB | | | | [address], | | | | | | [place] [address] | | | | + + + + + + | BUN/Creatin | 5Comment: Testing | | EXTERNAL | | | ine Ratio | performed at [facility], [address] | | LAB | | | | [address], | | | | | | [place] [address] | | | | + + + + + + | Calcium | 7.8 (L)Comment: Testing | 8.5 - 10.5 | EXTERNAL | | | | performed at [facility], [address] | mg/dL | LAB | | | | [address], | | | | | | [place] [address] | | | | + + + [...] [place], | | | | | | [place] [address] | | | | + + + [...] | | | Fingerstick | performed at [facility];[address] | | LAB | | | | [address];[place], [place] | | | | | | [address] | | | | + + + [...] EXTERNAL | | | | performed at [facility];[address] | mmol/L | LAB | | | | [address];[place] | | | | | | [address] | | | | + + + [...] | | | Fingerstick | performed at [facility];[address] | | LAB | | | | [address];[place], [place] | | | | | | [address] | | | | + + + [...] | | | Fingerstick | performed at [facility];[address] | | LAB | | | | [address];[place] | | | | | | [address] | | | | + + + [...] EXTERNAL | | | | performed at [facility];[address] | mmol/L | LAB | | | | [place] | | | | | | [address] | | | | + + + [...] EXTERNAL | | | | performed at [facility];[address] | mmol/L | LAB | | | | [place] | | | | | | [address] | | | | + + + [...] | | REQUESTS S GRAM DONE AT [facility] GRAM STAIN | | | GREATER THAN [...] [place] | | | | | | [address] | | | | + + + [...] | | | Alcohol | performed at [facility] | | LAB | | | | [address];[place], [place] | | | | | | [address] | | | | + + + [...] | EXTERNAL LAB | | performed at [facility];[address] [place] [address];[place] [address] CORRECTED ON 04/30 | | | AT 1403: PREVIOUSLY REPORTED NO GROWTH VIRAL CULT DFA STAIN | | | ACCESSION NO. | | | [id number] SPECIMEN SOURCE | | | NASOPHARYNGEAL DFA | | | SPECIMEN CONTAINED TOO FEW CELLS FOR | | | EVALUATION BY DIRECT FLUORESCENT | | | ANTIBODY STAIN. RESULT | | | PRELIMINARY: NO VIRUS ISOLATED AT 7 | | | DAYS. | | | FINAL: NO VIRUS ISOLATED AT 14 DAYS. | | | Testing performed at [facility], [address] [facility] [address] | | | REPORT STATUS REPORT STATUS | | | FINAL 05/14/2016 Testing performed at [facility], [address] | | | [facility] [address] | | + + + + +---------+ [...] | performed by [facility] Testing performed at [facility];[address] [facility];[place] | | | [address] INFLUENZA B NEGATIVE | | | Testing performed by [facility] Testing performed at [facility];[address] | | [facility];[place] [address] | | + + + + +---------+ [...] EXTERNAL LAB | | Testing performed at [facility];[address] [place] [address];[place] [address] MRSA PCR | | | NEGATIVE Testing performed at | | | [facility];[address] [place] [address];[place] [address] | | + + + + +---------+ [...] | | as above. Electronically signed by rA Neal MD on | | | 04/28/2016 12:09 PM | | + + + + + + | Narrative | Performed At | + + + | [facility] XR CHEST 1 VIEW 04/28/2016 [...] Rad Conversion - 02/05/2019 5:14 PM PDT [facility]OL[facility] POTTERXR CHEST 1 VIEW04/28/2016 11:53 | | AM [...]
--- OUTSIDE RECORDS SUMMARY | ~2019-12-30 | XMS | Encounter Summary ---
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
--- OUTSIDE RECORDS SUMMARY | ~2019-12-30 | XMS | Encounter Summary ---
Demographics + + + | Address | [address] | | | [place] [address] | + + + | Home Phone [...] Team Providers + +------+ + | Care Contact Lens Technician Name | Role | Phone | + +------+ + PCP | Unavailable | + +------+ + Encounter Details +--------+ + + + + | Date | Type | Department | Care Team | Description | +--------+ + + + + | 08/08/ | Hospital | [facility] | Johnathon Colbert MD | Hyperkalemia; | | 2012 - | Encounter | [facility] | [address] | Hypothyroidism; | | | | C[address] | [place] [address] | Vitamin d | | 08/09/ | | [address] | [phone] | deficiency; Gout; | | 2012 | | [place], [place] | | Amphetamine and | | | | [address] | | other | | | | [phone] | | psychostimulant | | | | [...] | | | | uncontrolled ([facility]); | | | | | | ESRD (end stage | | | | | | renal disease) on | | | | | | dialysis ([facility]); | | | | | | [...] Discharge Summaries by Neli Trujillo MD at 08/19/126 Author: eNli Trujillo MD Service: (none) Author Type: Physician Filed: 08/19/12 3615 Date of Service: 08/19/121438 Status: Signed [employer] Supervisor: Neli Trujillo MD (Physician) [facility] Service: Hospitalist Discharge Summary Date of Admission: [...] the hospital for bacteremia. At that ti mi dialysis catheter was changed, and he had a RONY as well. He missed his dialysis yesterday ; now he went to the emergency room at [facility], where he had a neck pain and wa s found to be anemic and transferred to [facility]. At [facility] his hemoglobin was 5.7 and hematocrit 17.9. [...] disch arge 2. End-stage renal disease. IDr. umangsa on [...] W/ EGD; Surgeon: John Singleton MD; Location: [facility]; Se rvice: Gastroenterology; Laterality: N/A; Av fistula placement 05/06/2012 Procedure: AV FISTULA; Surgeon: Oskar Meyer MD; Location: [facility] MA[facility] OR; Service: Vascul ar; Laterality: Left; Left arm possible right Unlisted procedure arthroscopy shoulder rt , ligaments Knee arthroscopy 07/07/2012 Procedure: KNEE - ARTHROSCOPY; Surgeon: Favio Raza MD; Location: [facility] OR; ervice: Orthopedics; Laterality: Right; After 1530 Catheter removal 07/07/2012 Procedure: DIALYSIS CATHETER REMOVAL; Surgeon: Oskar Meyer MD; Location: [facility] [place] OCEDURE; Service: General; Laterality: Right; perm cath Dialysis fistula creation 07/07/2012 Procedure: DIALYSIS CATHETER INSERTION; Surgeon: Oskar Meyer MD; Location: [facility] PROCEDURE; Service: General; Laterality: Left; temporary dialysis catheter Av fistula repair 07/11/2012 Procedure: AV FISTULA GRAFT REPAIR/REVISION; Surgeon: Oskar Meyer MD; Location: [facility]; Service: Vascular; Laterality: Left; Superficialization of brachiobasilic fistula and right IJ perm cath insertion Dialysis fistula creation 07/11/2012 Procedure: DIALYSIS CATHETER INSERTION; Surgeon: Oskar Meyer MD; Location: [facility]; Service: Vascular; Laterality: Left; [...] No discharge procedures on file. Follow up: [facility] [address] [facility] [address] in 2 days Sean Reid MD [address] [facility] [address] in 2 days Discharge Medication List as [...] by mouth daily., Starting 07/13/2012, Un til 08/12/12, Print amlodipine (NORVASC) 10 MG tablet [...] Until Discontinued, Histori herminia Med ergocalciferol (DRISDOL) 40952 UNITS capsule Take 1 capsule by mouth once a week., Startin 04/15/2012, Until Sat04/15/13, Print fluticasone-salmeterol (ADVAIR DISKUS) [...] 08/09/121911 Date of Service: 08/09/121910 Status: Signed [employer] Supervisor: Maddy Maciel RN (Registered Nurse) Patient given discharge instructions and follow up appointment information. He was also giv en information about having dialysis on Saturday at his normal clinic. Family came to pick him up and transfer him home. Patient was escorted out in wheelchair by staff. Sean Willis - 08/09/2012 12:39 PM PSTFormatting of this note might be different from the origi nal. Progress Notes by Sean Reid MD at 08/09/12 1239 Author: Sean Reid MD Service: Nephrology Author Type: Physician Filed: 08/09/12 1252 Date of Service: 08/09/12 1239 Status: Signed [employer] Supervisor: Sean Reid MD (Physician) [facility] Service: NEPHROLOGY Progress Note Enrique Potter 47 y.o. [id number] 6620/[id number] [facility] Hospital Day: LOS: 1 day SUBJECTIVE Patient seen and examined. severe anemia History Obtained From:Pt Stated Pt states he was feeling dizzy and lightheaded "like I was going to pass out, I knew something was wrong this morning". Went to [facility] ER THEN TR TO [facility], he was found to have severe anemia of 5.7 hemoglobin Patient had missed dialysis because of left upper arm AV fistula infiltration. On August 06, 2012 and was due for hemodialysis even today and missed the hemodialysis and chronic hem odialysis unit at [facility] under Dr. Cook. Patient was recently admitted [...] W/ EGD; Surgeon: John Singleton MD; Location: [facility]; Se rvice: Gastroenterology; Laterality: N/A; Av fistula placement 05/06/2012 Procedure: AV FISTULA; Surgeon: Oskar Meyer MD; Location: [facility]; Service: Vascul ar; Laterality: Left; Left arm possible right Unlisted procedure arthroscopy shoulder rt , ligaments Knee arthroscopy 07/07/2012 Procedure: KNEE - ARTHROSCOPY; Surgeon: Favio Raza MD; Location: [facility]; S ervice: Orthopedics; Laterality: Right; After 1530 Catheter removal 07/07/2012 Procedure: DIALYSIS CATHETER REMOVAL; Surgeon: Oskar Meyer MD; Location: [facility] [place]; Service: General; Laterality: Right; perm cath Dialysis fistula creation 07/07/2012 Procedure: DIALYSIS CATHETER INSERTION; Surgeon: Oskar Meyer MD; Location: [facility] PROCEDURE; Service: General; Laterality: Left; temporary dialysis catheter Av fistula repair 07/11/2012 Procedure: AV FISTULA GRAFT REPAIR/REVISION; Surgeon: Oskar Meyer MD; Location: [facility]; Service: Vascular; Laterality: Left; Superficialization of brachiobasilic fistula and right IJ perm cath insertion Dialysis fistula creation 07/11/2012 Procedure: DIALYSIS CATHETER INSERTION; Surgeon: Oskar Meyer MD; Location: [facility]; Service: Vascular; Laterality: Left; [...] BIOLOGICAL; 2 STEP KIDSUNEMPLOYED BEFORE WORKED AT [employer] IN [place] NONE ETOH QUIT 15 YEARS AGODRUGS: quit [...] bicarbonate 50 mEq Intravenous Once vitamin B bxwlegt-H-kotfi acid 1 tablet Oral Daily DISCONTD: epoetin [...] I met this patient in the Roll Inspector holding room. I had a discussion with [...] continue maintenance hemodialysis Saturday and Saturday. At [facility] HD UNIT UNDER DR COOK BP: Better [...] care. SEAN REID MD 08/09/2012 Chela King RP - 08/08/2012 6:45 PM PST Progress Notes by Chela Varela RPH at 08/08/121844 Author: Chela Varela RPH Service: (none) Author Type: Pharmacist Filed: 08/08/121844 Date of Service: 08/08/121844 Status: Signed [employer] Supervisor: Chela Varela RPH (Pharmacist) Clinical Pharmacy Note - Renal Dose Adjustment Enrique Potter 47 y.o. male Ht Readings from Last 1 Encounters: 08/08/12 1.702 m (5' 7") Wt Readings from Last 1 Encounters: 08/08/12 79.833 kg (176 lb) CREATININE Date Value Range Status 08/08/2012 6.51* 0.70 - 1.30 mg/dL Final Testing performed at [facility];[address] [place] [address];[place] [address] ESRD on HD Pharmacy to renally adjust [...] Service: Hospitalist Author Type: Physician Filed: 08/09/12 0563 Date of Service: 08/08/12 1501 Status: Signed [employer] Supervisor: Johnathon Colbert MD (Physician) Related Notes: Original Note by Johnathon Colbert MD (Physician) filed at 08/08/12 1510 [facility] Service: Hospitalist Admission History & Physical Pt: Enrique Potter AGE/SEX: 47 y.o. male ROOM: 05/04 PCP: NIKO SHINE : 1965 TODAY'S DATE: 08/08/2012 Date of [...] of health and is still in the [facility] state [facility] health, but he missed his [...] emergency room at [facility], where he had a neck pain and was found t o be anemic and transferred to [facility]. At [facility] his hemoglobin was 5.7 and hematocrit 17.9. [...] W/ EGD; Surgeon: John Singleton MD; Location: [facility]; Se rvice: Gastroenterology; Laterality: N/A; Av fistula placement 05/06/2012 Procedure: AV FISTULA; Surgeon: Oskar Meyer MD; Location: [facility]; Service: Vascul ar; Laterality: Left; Left arm possible right Unlisted procedure arthroscopy shoulder rt , ligaments Knee arthroscopy 07/07/2012 Procedure: KNEE - ARTHROSCOPY; Surgeon: Favio Raza MD; Location: [facility]; [facility]; Laterality: Right; After 1530 Catheter removal 07/07/2012 Procedure: DIALYSIS CATHETER REMOVAL; Surgeon: Oskar Meyer MD; Location: [facility] [place]; Service: General; Laterality: Right; perm cath Dialysis fistula creation 07/07/2012 Procedure: DIALYSIS CATHETER INSERTION; Surgeon: Oskar Meyer MD; Location: [facility] B[facility] PROCEDURE; Service: General; Laterality: Left; temporary dialysis catheter Av fistula repair 07/11/2012 Procedure: AV FISTULA GRAFT REPAIR/REVISION; Surgeon: Oskar Meyer MD; Location: [facility] OR; Service: Vascular; Laterality: Left; Superficialization of brachiobasilic fistula and right IJ perm cath insertion Dialysis fistula creation 07/11/2012 Procedure: DIALYSIS CATHETER INSERTION; Surgeon: Oskar Meyer MD; Location: [facility]; Service: Vascular; Laterality: Left; [...] mouth nightly. Yes Historical Provider ergocalciferol (DRISDOL) 58080 UNITS capsule Take 1 capsule by mouth [...] times daily with meals. 07/13/12 08/08/12 Al Coon DO sodium bicarbonate 650 MG tablet Take 1,300 mg by mouth 2 (two) times daily. 08/08/12 Wv storical Provider vancomycin (VANCOCIN) 750 mg/265 mL [...] End-stage renal disease. I discussed with Dr. eRid. The patient is going to get dialysis [...] summarized. Code Status: Prior Primary Care Physician: [facility]/08[facility]2012 3:01 PM documented in this enc ounter Consult Notes Conversion Transaction, Provider Unknown - 08/09/2012 4:26 PM PSTFormatting of this note m ight be different from the original. Consults by Lolis Nicholas RN at 08/09/12 9607 Author: Lolis Nicholas RN Service: Wound/Ostomy Care Author Type: Registered Nurse Filed: 10/23/12 0835 Date of Service: 08/09/12 1188 Status: Signed [employer] Supervisor: Lolis Nicholas RN (Registered Nurse) Consult Orders: 1. Wound Care Evaluation and Treat [[id number]] ordered by Neli Trujillo MD at 08/09/12 0541 [facility] Service: Wound Care Consult Note Hospital Day: LOS: 1 day Post-Op Day: * No surgery found * SUBJECTIVE Patient Summary: This is a 47 year old male admitted from [place] from the [facility], admitted with [...] Consult* by Sean Reid MD at 08/08/12 8009 Author: Sean Reid MD Service: Nephrology Author Type: Physician Filed: 08/08/12 0403 Date of Service: 08/08/121509 Status: Signed [employer] Supervisor: Sean Reid MD (Physician) [facility] Service: NEPHROLOGY CONSULT Note Enrique Potter 47 y.o. [id number] 05/[address] [facility] Hospital Day: LOS: 0 days Date of Admission: 08/08/2012 Requesting Physician: ED provider/ Hospitalist Reason for Admission: severe anemia History Obtained From:Pt Stated Pt states he was feeling dizzy and lightheaded "like I was going to pass out, I knew something was wrong this morning". Went to [facility] ER THEN TR TO [facility], he was found to have severe anemia of 5.7 hemoglobin Patient had missed dialysis because of left upper arm AV fistula infiltration. On August 06, 2012 and was due for hemodialysis even today and missed the hemodialysis and chronic hem odialysis unit at [facility] under Dr. Cook. Patient was recently admitted [...] W/ EGD; Surgeon: John Singleton MD; Location: [facility]; Se rvice: Gastroenterology; Laterality: N/A; Av fistula placement 05/06/2012 Procedure: AV FISTULA; Surgeon: Oskar Meyer MD; Location: [facility]; Service: Vascul ar; Laterality: Left; Left arm possible right Unlisted procedure arthroscopy shoulder rt , ligaments Knee arthroscopy 07/07/2012 Procedure: KNEE - ARTHROSCOPY; Surgeon: Favio Raza MD; Location: [facility]; S ervice: Orthopedics; Laterality: Right; After 1530 Catheter removal 07/07/2012 Procedure: DIALYSIS CATHETER REMOVAL; Surgeon: Oskar Meyer MD; Location: [facility] [place]; Service: General; Laterality: Right; perm cath Dialysis fistula creation 07/07/2012 Procedure: DIALYSIS CATHETER INSERTION; Surgeon: Oskar Meyer MD; Location: [facility] PROCEDURE; Service: General; Laterality: Left; temporary dialysis catheter Av fistula repair 07/11/2012 Procedure: AV FISTULA GRAFT REPAIR/REVISION; Surgeon: Oskar Meyer MD; Location: [facility] OR; Service: Vascular; Laterality: Left; Superficialization of brachiobasilic fistula and right IJ perm cath insertion Dialysis fistula creation 07/11/2012 Procedure: DIALYSIS CATHETER INSERTION; Surgeon: Oskar Meyer MD; Location: [facility]; Service: Vascular; Laterality: Left; [...] PM Component Value Range ARM BAND NUMBER [id number] ARM BAND NUMBER Value: Testing performed at [facility];[address] [place] [address] ABO/RH(D) O POSITIVE ABO/RH(D) Value: Testing performed at [facility];[address] [place] [address] ANTIBODY SCREEN POSITIVE ANTIBODY SCREEN Value: Testing performed at [facility];[address] [place] [id number] Antibody ID PENDING ] Lab Results Component [...] catheter as a functioning access, needs removal. JAKEI PROVIDER Juan Cook MD MEDICATIONS Lidocaine 1% for local anesthesia. DESCRIPTION OF PROCEDURE I met this patient in the Roll Inspector holding room. I had a discussion with [...] continue maintenance hemodialysis Saturday and Saturday. At [facility] HD UNIT UNDER DR COOK BP: Better [...] 08/08/121613 Date of Service: 08/08/121612 Status: Signed [employer] Supervisor: Jessica Cavazos RN (Registered Nurse) Pt has meal tray at bedside. Jessica Cavazos RN 08/08/121613 onver quique Transaction, Provider Unknown - 08/08/2012 4:09 PM PST ED Notes by Nahomy Armas RN at 08/08/12 160 Author: Nahomy Armas RN Service: (none) Author Type: Registered Nurse Filed: 08/08/12 160 Date of Service: 08/08/121608 Status: Signed [employer] Supervisor: Nahomy Armas RN (Registered Nurse) Lab at for a repeat H and H Nahomy Armas RN 08/08/121608 onver quique Transaction, Provider Unknown - 08/08/2012 4:08 PM PST ED Notes by Nahomy Armas RN at 08/08/12 160 Author: Nahomy Armas RN Service: (none) Author Type: Registered Nurse Filed: 08/08/12 160 Date of Service: 08/08/121607 Status: Signed [employer] Supervisor: Nahomy Armas RN (Registered Nurse) Food tray delivered Nahomy Armas RN 08/08/121607 rady Manriquez DO - 08/08/2012 12:58 PM PSTFormatting of this note might be different from the or iginal. ED Provider Notes by Brady Canales DO at 08/08/12 1258 Author: Brady Canales DO Service: (none) Author Type: Physician Filed: 08/17/12 7993 Date of Service: 08/08/128 Status: Signed [employer] Supervisor: Brady Canales DO (Physician) [facility] Department of Emergency Medicine 12:58 PM 08/08/2012 History of Present Illness Patient Identification Enrique Potter is a 47 y.o. male. Patient information was obtained from patient and EMS personnel. History/Exam limitations: none. Patient presented to the Emergency Department by: Ambulance PCP: [facility] Chief Complaint Chief Complaint Patient presents with Acute Renal Failure pt was at [facility] sent here for dialysis. missed dialysis on saturday and again t . The patient presents to ED with renal failure. Patient was seen at [facility] and transf erred here for dialysis. Patient reports that he has renal failure and last had dialysis abo ut 4 days ago. Although the patient was complaining of dizziness and lightheadedness to the nursing staff, patient currently denies this. Patient does complain of pain at fistula site. Pt denies fever/chills, headache, facial pain, rhinorrhea, sore throat, chest pain, dyspne a, abdominal pain, N/V, appetite changes, skin rash, paresthesias, myalgias/arthralgias, lym phadenopathy, or new bruising. Patients director enterprise systems is Dr. Cook. Past Medical History Diagnosis [...] W/ EGD; Surgeon: John Singleton MD; Location: [facility]; Se rvice: Gastroenterology; Laterality: N/A; Av fistula placement 05/06/2012 Procedure: AV FISTULA; Surgeon: Oskar Meyer MD; Location: [facility]; Service: Vascul ar; Laterality: Left; Left arm possible right Unlisted procedure arthroscopy shoulder rt , ligaments Knee arthroscopy 07/07/2012 Procedure: KNEE - ARTHROSCOPY; Surgeon: Favio Raza MD; Location: [facility]; S ervice: Orthopedics; Laterality: Right; After 1530 Catheter removal 07/07/2012 Procedure: DIALYSIS CATHETER REMOVAL; Surgeon: Oskar Meyer MD; Location: [facility] [place]; Service: General; Laterality: Right; perm cath Dialysis fistula creation 07/07/2012 Procedure: DIALYSIS CATHETER INSERTION; Surgeon: Oskar Meyer MD; Location: [facility] PROCEDURE; Service: General; Laterality: Left; temporary dialysis catheter Av fistula repair 07/11/2012 Procedure: AV FISTULA GRAFT REPAIR/REVISION; Surgeon: Oskar Meyer MD; Location: [facility] OR; Service: Vascular; Laterality: Left; Superficialization of brachiobasilic fistula and right IJ perm cath insertion Dialysis fistula creation 07/11/2012 Procedure: DIALYSIS CATHETER INSERTION; Surgeon: Oskar Meyer MD; Location: [facility]; Service: Vascular; Laterality: Left; [...] mouth nightly. Yes Historical Provider ergocalciferol (DRISDOL) 33602 UNITS capsule Take 1 capsule by mouth [...] times daily with meals. 08/08/12 Al Coon, diphenhydrAMINE (BENADRYL) 25 MG tablet Take 25 mg by mouth every 6 (six) hours as needed. 08/08/12 Historical Provider omeprazole (PRILOSEC) 40 MG capsule Take 40 mg by mouth nightly. 05/02/12 08/08/12 Johnathon thompson MD sevelamer (RENVELA) 800 MG tablet Take 1 tablet by mouth 3 (three) times daily with meals. 07/13/12 08/08/12 Al Coon DO sodium bicarbonate 650 MG tablet Take 1,300 mg by mouth 2 (two) times daily. 08/08/12 Hi storical Provider vancomycin (VANCOCIN) 750 mg/265 mL [...] BIOLOGICAL; 2 STEP KIDSUNEMPLOYED BEFORE WORKED AT [employer] [place] NONE ETOH QUIT 15 YEARS AGODRUGS: quit [...] Department Course 1:21 PM. Patient transferred from [facility] due to renal failure. Patient has [...] 2:19 PM. Discussed case with Dr. Crenshaw, Walking Dragline Operator, accepts consult. 2:39 PM. Consult for admission [...] Value Ref Range Date/Time HGB and HCT [[id number]] (Abnormal) Collected:08/08/12 160 Order Status:Completed Updated:08/08/121622 HGB 5.4 (LL) 13.2 - 17.0 g/dL HCT 17.3 (LL) 39.0 - 50.0 % Complete Metabolic Panel [[id number]] (Abnormal) Collected:08/08/121318 Order Status:Completed Updated:08/08/121346 Specimen Information:Blood SODIUM 137 135 - 143 [...] U/L EGFR 10 (L) >60 mL/min/1.73m2 Magnesium [[id number]] Collected:08/08/121318 Order Status:Completed Updated:08/08/121346 Specimen Information:Blood MAGNESIUM 1.9 1.7 - 2.4 mg/dL Phosphorus [[id number]] (Abnormal) Collected:08/08/121318 Order Status:Completed Updated:08/08/121346 Specimen Information:Blood PHOSPHORUS 5.2 (H) 2.3 - 4.8 mg/dL CBC w Auto Diff [[id number]] (Abnormal) Collected:08/08/121318 Order Status:Completed Updated:08/08/121340 Specimen Information:Blood [...] Evaluation Imaging Results None EKG Interpretation: Time: 1310 Rate: 82 Rhythm: Sinus [place]: Nl BASSAM: Nl QRS: Nl ST waves: [...] Date of Service: 08/08/12 1257 Status: Signed [employer] Supervisor: Jessica Cavazos RN (Registered Nurse) Pt states [...] Date of Service: 08/08/12 1251 Status: Signed [employer] Supervisor: Jessica Cavazos RN (Registered Nurse) Bed:11
Expected date:
Expected time:
Means of arrival:
Comments:
onver quique Transaction, Provider Unknown - 08/08/2012 12:45 PM PST ED Notes by Abbie Townsend RN at 08/08/12 1245 Author: Abbie Townsend RN Service: (none) Author Type: Registered Nurse Filed: 08/08/12 1253 Date of Service: 08/08/12 1245 Status: Signed [employer] Supervisor: Abbie Townsend RN (Registered Nurse) Report from [place] [facility] missed dialysis wed and today. Missed vanco this week. 22 guage RFA . 124/75, HR 88, Temp 97.4. Abbie Townsend RN 08/08/12 1259 Odoarmond hollis in this encounter Plan of Treatment Not [...]
--- OUTSIDE RECORDS SUMMARY | ~2019-12-30 | XMS | Encounter Summary ---
Demographics + + + | Address | [address] | | | [place] [address] | + + + | Home Phone [...] Team Providers + +------+ + | Care Herpetology Teacher Name | Role | Phone | + +------+ + PCP | Unavailable | + +------+ + Encounter Details +--------+ + + + + | Date | Type | Department | Care Team | Description | +--------+ + + + + | 04/28/ | Hospital | [facility] | Conversion | Unknown cause of | | 2015 | Encounter | CONVERSION [id number] | Transaction, | injury, initial | | | | [address] | Provider Unknown | encounter | | | | [place], [place] | | | | | | [phone] | (Fax) | | | | | [phone] | | | +--------+ + + + [...]
--- OUTSIDE RECORDS SUMMARY | ~2019-12-30 | XMS | Encounter Summary ---
Demographics + + + | Address | [address] | | | [place] [address] | + + + | Home Phone [...] + + + | Author | [facility] | | | and [place] | + + + | Organization | [facility] | | | [...] Team Providers + +------+ + | Care Tapper Bit Name | Role | Phone | + +------+ + PCP | Unavailable | + +------+ + Encounter Details +--------+ + + + + | Date | Type | Department | Care Team | Description | +--------+ + + + + | 08/07/ | Hospital | [facility] | Conversion | ESRD (end stage | | 2013 | Encounter | CENTER CV INTRA OP | Transaction, | renal disease) (HCC) | | | | [address] | Provider Unknown | | | | | [place], [place] | [phone] | | | | | [address] | | | | | | [phone] | Juan Timmons MD | | | | | | [address] | | | | | | [address] [place], [place] | | | | | | [address] | | | | | | | [...] Notes by Malika Norris RN at 08/07/12 135 Author: Malika Norris RN Service: (none) Author Type: Registered Nurse Filed: 08/07/12 1352 Date of Service: 08/07/121350 Status: Signed Wedding Consultant: Malika Norris RN (Registered Nurse) Pt. Vss, tolerated procedure well, all d/c teachings and instructions given to pt. And spou se, all questions answered, understanding stated, no further concerns at the moment. Pt. D/c via wheelchair with spouse. docume nted in this encounter Procedure Notes Matteo Pruitt NP - 08/07/2012 1:35 PM PST Procedures by DARRELL Lopez at 08/07/12 0267 Author: DARRELL Lopez Service: Interventional Radiology Author Type: Advanced R egistered Nurse Practitioner Filed: 08/07/12 7743 Date of Service: 08/07/12 013 Status: Signed Wedding Consultant: DARRELL Lopez (Advanced Registered Nurse Practitioner) Pre-procedure Diagnoses: 1. ESRD on dialysis ([facility]) [585.6] Post-procedure Diagnoses: 1. ESRD on dialysis (HCC) [585.6] Procedures: 1. IR REMOVAL TUNNELED CATHETER [[id number] (Custom)] [facility] Service: Interventional Radiology Tunneled Dialysis Catheter Removal [...] this patient in | | | the [facility] holding room. I had a discussion with [...] infiltrated with lidocaine 1%. Sterile drapes were lauretn and sterile | | | technique was [...] met this patient | | in the [facility] holding room. I had a discussion with [...]
--- OUTSIDE RECORDS SUMMARY | ~2019-12-30 | XMS | Encounter Summary ---
Demographics + + + | Address | [address] | | | [place] [address] | + + + | Home Phone | | + + + | Preferred Language | Unknown | + + + | Marital Status | Single | + + + | Roman Catholic Affiliation | Unknown | + + + | Race | or | + + + | Ethnic Group | Not or | + + + Author + + + | Author | [facility] | + + + | Organization | [facility] [employer] [facility] | + + + | [...] Team Providers + +------+ + | Care Pharmacy Tech Name | Role | Phone | [...] | | | [address] | [facility] | medications | | | [address] | [place] [address] | | | | | Physician's | [phone] | | | | | Pavilion, [facility] floor | | | | | | [place], [place] | | | | | | [address] | | | | | | [phone] | | | +--------+ + + + [...]
--- OUTSIDE RECORDS SUMMARY | ~2019-12-30 | XMS | Encounter Summary ---
Demographics + + + | Address | [address] | | | [place] [address] | + + + | Home Phone [...] Team Providers + +------+ + | Care Brewing Director Name | Role | Phone | + +------+ + PCP | Unavailable | + +------+ + Encounter Details +--------+ + + + + | Date | Type | Department | Care Team | Description | +--------+ + + + + | 04/30/ | Hospital | [facility] | Conversion | ESRD (end stage | | 2014 | Encounter | CENTER CV INTRA OP | Transaction, | renal disease) ([facility]) | | | | [address] | Provider Unknown | | | | | [place], [place] | [phone] | | | | | [address] | | | | | | [phone] | Juan Timmons MD | | | | | | [address] | | | | | | [address] [place], [place] | | | | | | [address] | | | | | | | [...] Progress Notes Cee Transaction, Provider Unknown - 04/30/2014 5:10 PM PSTFormatting of this note m ight be different from the original. Nurse Progress Note by Vickie Hernandez RN at 04/30/141709 Author: Vickie Hernandez RN Service: (none) Author Type: Registered Nurse Filed: 04/30/141711 Date of Service: 04/30/141709 Status: Signed Physical Therapy Assistant Instructor: Vickie Hernandez RN (Registered Nurse) DC inst. D/w patient and spouse, copies given. Pt to f/u with Dr. Timmons (pt to call on Ira for appt). VSS. DC to home. KPEOTRN 04/29/14 @ 1712 docume nted in this encounter Procedure Matteo Pendleton NP - 05/05/2014 9:16 AM PST Procedures by DARRELL Lopez at 05/05/14 0916 Author: DARRELL Lopez Service: Radiology Author Type: Advanced Registered Nurse Practitioner Filed: 05/05/14918 Date of Service: 05/05/14915 Status: Signed Physical Therapy Assistant Instructor: DARRELL Lopez ([place] Registered Nurse Practitioner) Pre-procedure Diagnoses: 1. ESRD (end stage renal disease) ([facility]) [585.6] 2. Bacteremia [790.7] Post-procedure Diagnoses: 1. ESRD (end stage renal disease) (HCC) [585.6] 2. Bacteremia [790.7] Procedures: 1. IR REMOVAL TUNNELED CATHETER [[id number] (Custom)] Late entry: Procedure note from 04/30/14 [facility] Service: Interventional Radiology Tunneled Dialysis Catheter Removal [...] PROCEDURE I met this patient in the Regional Manager holding area. I had | | | [...] met this patient | | in the Regional Manager holding area. I had a discussion with [...] tunneled dialysis catheter under local anesthesia wi heidy incident. | | | | | | [...] AUREUSAbnormal | | | Testing performed at [facility], [address] | | | [place] [address] | | + + + + +---------+ [...]
--- OUTSIDE RECORDS SUMMARY | ~2019-12-30 | XMS | Encounter Summary ---
Demographics + + + | Address | [address] | | | [place] [address] | + + + | Home Phone | | + + + | Preferred Language | Unknown | + + + | Marital Status | Single | + + + | [employer] Affiliation | Unknown | + + + [...] Team Providers + +------+ + | Care Income Tax Return Preparer Name | Role | Phone | + [...]
--- OUTSIDE RECORDS SUMMARY | ~2019-12-30 | XMS | Encounter Summary ---
Demographics + + + | Address | [address] | | | [place] [address] | + + + | Home Phone [...] Team Providers + +------+ + | Care Pattern Attendant Name | Role | Phone | + +------+ + PCP | Unavailable | + +------+ + Encounter Details +--------+ + + + + | Date | Type | Department | Care Team | Description | +--------+ + + + + | 03/15/ | Hospital | [facility] | RichichitraBoomr, | Sepsis ([facility]); | | 2013 - | Encounter | [facility] | MD Umer Caraballo | Pneumonia; ESRD on | | | | [address] | [place] [address] | hemodialysis ([facility]); | | 03/20/ | | [address] | [phone] | DM (diabetes | | 2013 | | [place], [place] | | mellitus) ([facility]); | | | | [phone] | | Gram-positive cocci | | | | [phone] | | bacteremia; Anemia | | | | | | of chronic kidney | | | | | | failure; ESRD (end | | | | | | stage renal disease) | | | | | | on dialysis ([facility]); | | | | | | HTN (hypertension); | | | | | | Diabetes mellitus | | | | | | with ESRD (end-stage | | | | | | renal disease) | | | | | | ([facility]) | +--------+ + + + + [...] Summaries by Douglas Stevenson MD at 03/20/14 718 Author: Douglas Stevenson MD Service: (none) Author Type: Physician Filed: 04/02/14 9633 Date of Service: 03/20/141136 Status: Signed Helicopter Crew Chief: Douglas Stevenson MD (Physician) Related Notes: Original Note by Douglas Stevenson MD (Physician) filed at 03/20/14 9816 [facility] Service: Hospitalist Physician Discharge Summary Patient ID: Carol Potter [id number] 48 y.o. 1965 Admit date: 03/15/2014 Discharge [...] hemodialysis center. 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, Coridea, used which may contain error for similar [...] W/ EGD; Surgeon: John Singleton MD; Location: [facility] ENDOSCOPY; Se rvice: Gastroenterology; Laterality: N/A; Av fistula placement 05/06/2012 Procedure: AV FISTULA; Surgeon: Oskar Meyer MD; Location: [facility] MAIN OR; Service: Vascul ar; Laterality: Left; Left arm possible right Unlisted procedure arthroscopy shoulder rt , ligaments Knee arthroscopy 07/07/2012 Procedure: KNEE - ARTHROSCOPY; Surgeon: Favio Raza MD; Location: [facility] MAIN OR; S ervice: Orthopedics; Laterality: Right; After 1530 Catheter removal 07/07/2012 Procedure: DIALYSIS CATHETER REMOVAL; Surgeon: Oskar Meyer MD; Location: [facility] BEDSIDE CT OCEDURE; Service: General; Laterality: Right; perm cath Dialysis fistula creation 07/07/2012 Procedure: DIALYSIS CATHETER INSERTION; Surgeon: Oskar Meyer MD; Location: [facility] BEDSIDE PROCEDURE; Service: General; Laterality: Left; temporary dialysis catheter Av fistula repair 07/11/2012 Procedure: AV FISTULA GRAFT REPAIR/REVISION; Surgeon: Oskar Meyer MD; Location: [facility]; Service: Vascular; Laterality: Left; Superficialization of brachiobasilic fistula and right IJ perm cath insertion Dialysis fistula creation 07/11/2012 Procedure: DIALYSIS CATHETER INSERTION; Surgeon: Oskar Meyer MD; Location: [facility] OR; Service: Vascular; Laterality: Left; removed dialysis catheter from left neck and placed new on in left chest, attempted in right neck but unable to place Av fistula placement Right 02/09/2014 Procedure: AV FISTULA; Surgeon: Oskar Meyer MD; Location: [facility] MAIN OR; Service: Vascul ar; Laterality: [...] 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 You may get the following medications from [...] 1 tablet by | | 0 | 05/20 | | | (SINGULAIR) 10 mg | [...] Date of Service: 03/20/14 1006 Status: Signed Helicopter Crew Chief: Curtis Victoria RPH (Pharmacist) No HD scheduled for 03/20- no vanco dose needed. Elsie Yang - 03/20/2014 10:06 AM PDT Progress Notes by Elsie Sharma MD at 03/20/14 1006 Author: Elsie Sharma MD Service: Infectious Disease Author Type: Physician Filed: 03/20/14 1714 Date of Service: 03/20/14 1006 Status: Signed Helicopter Crew Chief: Elsie Sharma MD (Physician) Related Notes: Original Note by Elsie Sharma MD (Physician) filed at 03/20/[address] [place] [address] Service: Infectious Disease Progress Note Hospital Day: [...] secondary to long-term dialysis; pres ented to [facility] on 03/14 with symptoms of cough, chills, myalgias, fevers. P atient was thought to have pneumonia, possible septicemia. Cultures were drawn and he was s tarted on vancomycin and Zosyn and levofloxacin. He was then shift to [facility] for further ma nagement. Recently had right arm brachial basilic fistula creation in January 2014. Blood cultures drawn at [facility] prior to transfer now showing gram-positive [...] drawn, antibiotics given and shifted initially to [facility] and then subsequently here. His medication at presentation includes doxycycline-unclear if he has continued to remain o n this-was due to complete this in April as per last infectious disease note. However he has not followed up with ID since November 2012. Blood culture growth from [facility] is MSSA in 4 out of [...] mg Intravenous See Admin Instructions vitamin B rjznvip-R-ouenb acid 1 tablet Oral Daily Continuous Infusions [...] Value Units Date/Time Blood Culture Set 1 [[id number]] (Abnormal) Collected: 03/17/14 1351 Order Status: Completed Updated: 03/20/14 0700 Specimen Information: Blood / Blood Line Draw Specimen Description BLOOD, LINE DRAW SPECIAL REQUESTS DIAL.LINE LD3 GRAM STAIN GRAM-POSITIVE COCCUS (A) GRAM STAIN SEEN IN AEROBIC BOTTLE GRAM STAIN SMEAR RESULTS CALLED TO AND READ BACK BY: HANNA Martinez IN 6RP ON 03/18/14 AT 1620 RN AMBULATORY CULTURE STAPHYLOCOCCUS AUREUS (A) CULTURE FINDING OF ORGANISM GROWTH (A) CULTURE TIME TO DETECTION: CULTURE 0.95 DAYS CULTURE Result: Testing performed at [facility], [address] [place] [address] Culture & Susceptibility STAPHYLOCOCCUS AUREUS Antibiotic Sensitivity [...] with no growth to-date. Blood cultures from [facility] have grown MSSA. Radiology Results (last [...] vegetation. Fever with bacteremia: Blood cultures at [facility] are now identified as MSSA in [...] Date of Service: 03/20/14 1000 Status: Signed Helicopter Crew Chief: Sean Reid MD (Physician) [facility] Service: NEPHROLOGY Progress Note Carol Potter 48 y.o. [id number] male [facility] Hospital Day: LOS: 5 days SUBJECTIVE .CHIEF COMPLAINT: I had fever HISTORY OF PRESENT ILLNESS: Carol Potter is a 48 y.o. male with Significant PMH of ESRD secondary to Biopsy-proven Diabet ic nephropathy who is dialyzed Saturday and Saturday at [place] dialysis unit via Le ft upper extremity brachio cephalic fistula , DM2 , Secondary hyperparathyroidism , Anemia o f chronic renal failure ,Treated with IV antibiotics for endocarditis in the past. Clotted A VF 11/04 when hospitalized at [facility] and had tunneled catheter placed. Right upper extremity bra chiocephalic fistula by Dr. Meyer 02/04, Presented with fever at the dialysis unit and complain ed of not feeling well for the past 2-3 days with cough, diffuse body aches. Indicated one o f his granddaughters being sick with a mild infection which resolved. Sent to [facility] after completion of his dialysis treatment where he was felt to have pneumonia with leukocytosis and infiltrate seen on the chest x-ray. MAXIMUM TEMPERA TURE noted to be 1 or 2.5. Started on intravenous Levaquin after blood cultures were drawn. Staph aureus bacteremia. 4 out of 4 bottles, Actually left (after review of X ray from [facility] ec) lower lobe pneumonia, most likely [...] W/ EGD; Surgeon: John Singleton MD; Location: [facility] ENDOSCOPY; Se rvice: Gastroenterology; Laterality: N/A; Av fistula placement 05/06/2012 Procedure: AV FISTULA; Surgeon: Oskar Meyer MD; Location: [facility] MAIN OR; Service: Vascul ar; Laterality: Left; Left arm possible right Unlisted procedure arthroscopy shoulder rt , ligaments Knee arthroscopy 07/07/2012 Procedure: KNEE - ARTHROSCOPY; Surgeon: Favio Raza MD; Location: [facility] OR; chidi: Orthopedics; Laterality: Right; After 1530 Catheter removal 07/07/2012 Procedure: DIALYSIS CATHETER REMOVAL; Surgeon: Oskar Meyer MD; Location: [facility] BEDSIDE CT OCEDURE; Service: General; Laterality: Right; perm cath Dialysis fistula creation 07/07/2012 Procedure: DIALYSIS CATHETER INSERTION; Surgeon: Oskar Meyer MD; Location: [facility] BEDSIDE PROCEDURE; Service: General; Laterality: Left; temporary dialysis catheter Av fistula repair 07/11/2012 Procedure: AV FISTULA GRAFT REPAIR/REVISION; Surgeon: Oskar Meyer MD; Location: [facility]; Service: Vascular; Laterality: Left; Superficialization of brachiobasilic fistula and right IJ perm cath insertion Dialysis fistula creation 07/11/2012 Procedure: DIALYSIS CATHETER INSERTION; Surgeon: Oskar Meyer MD; Location: [facility]; Service: Vascular; Laterality: Left; removed dialysis catheter from left neck and placed new on in left chest, attempted in right neck but unable to place Av fistula placement Right 02/09/2014 Procedure: AV FISTULA; Surgeon: Oskar Meyer MD; Location: [facility]; Service: Vascul ar; Laterality: Right; History Social [...] KIDS. CURRENTLY UNEMPLOYED, BEFOR E WORKED AT [employer] IN [place]. Quit METHAMPHETAMINES PER PATIENT after t he [...] mg Intravenous See Admin Instructions vitamin B drvcbii-V-spobt acid 1 tablet Oral Daily Continuous Infusions [...] USE Clotted AVF 11/04 when hospitalized at [facility] and had tunneled catheter placed. Right upper [...] Results Component Value Date PTHINTACT 255* 04/02/2012 [id number] <12* 04/02/2012 Lab Results Component Value Date [...] ASSESSMENT & [facility]AN [facility] [place] [facility] ACCESS: LIJ PERMACATH IN USE Clotted AVF 11/04 when hospitalized at [facility] and had tunneled catheter placed. Right upper [...] Leukocytosis resolved. Afebrile. BACTEREMIA: blood cultures from [facility] positive for gram-positive cocci in 4 bottles. [...] then 11/10/2013 at chronic hemodialysis unit in [place], I have already informed the nurse there. D/W SHYANNE REID MD 03/20/2014 Jeaneth Abraham MD - 03/19/2014 12:36 PM PDT . Progress Notes by Douglas Stevenson MD at 03/19/14 1236 Author: Douglas Stevenson MD Service: (none) Author Type: Physician Filed: 03/19/14 123 Date of Service: 03/19/14 1236 Status: Signed Helicopter Crew Chief: Douglas Stevenson MD (Physician) [facility] Service: Hospitalist Progress Note Hospital Day: [...] . 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 Sean Willis MD - 03/19/2014 10:28 AM PDTFormatting of this note might be different from the o riginal. Progress Notes by Sean Reid MD at 03/19/14 1028 Author: Sean Reid MD Service: Nephrology Author Type: Physician Filed: 03/19/14 4566 Date of Service: 03/19/14 1028 Status: Signed Helicopter Crew Chief: Sean Reid MD (Physician) [facility] Service: NEPHROLOGY Progress Note Carol Potter 48 y.o. [id number]/[id number] male [facility] Hospital Day: LOS: 4 days SUBJECTIVE .CHIEF COMPLAINT: I had fever HISTORY OF PRESENT ILLNESS: Carol Potter is a 48 y.o. male with Significant PMH of ESRD secondary to Biopsy-proven Diabet ic nephropathy who is dialyzed Saturday and Saturday at [place] dialysis unit via Le ft upper extremity brachio cephalic fistula , DM2 , Secondary hyperparathyroidism , Anemia o f chronic renal failure ,Treated with IV antibiotics for endocarditis in the past. Clotted A VF 11/04 when hospitalized at [facility] and had tunneled catheter placed. Right upper extremity bra chiocephalic fistula by Dr. Meyer 02/04, Presented with fever at the dialysis unit and complain ed of not feeling well for the past 2-3 days with cough, diffuse body aches. Indicated one o f his granddaughters being sick with a mild infection which resolved. Sent to [facility] after completion of his dialysis treatment where he was felt to have pneumonia with leukocytosis and infiltrate seen on the chest x-ray. MAXIMUM TEMPERA TURE noted to be 1 or 2.5. Started on intravenous Levaquin after blood cultures were drawn. Staph aureus bacteremia. 4 out of 4 bottles, Actually left (after review of X ray from [facility] ec) lower lobe pneumonia, most likely [...] W/ EGD; Surgeon: John Singleton MD; Location: [facility] ENDOSCOPY; Se rvice: Gastroenterology; Laterality: N/A; Av fistula placement 05/06/2012 Procedure: AV FISTULA; Surgeon: Oskar Meyer MD; Location: [facility] MAIN OR; Service: Vascul ar; Laterality: Left; Left arm possible right Unlisted procedure arthroscopy shoulder rt , ligaments Knee arthroscopy 07/07/2012 Procedure: KNEE - ARTHROSCOPY; Surgeon: Favio Raza MD; Location: [facility] MAIN OR; ervice: Orthopedics; Laterality: Right; After 1530 Catheter removal 07/07/2012 Procedure: DIALYSIS CATHETER REMOVAL; Surgeon: Oskar Meyer MD; Location: [facility] BEDSIDE CT OCEDURE; Service: General; Laterality: Right; perm cath Dialysis fistula creation 07/07/2012 Procedure: DIALYSIS CATHETER INSERTION; Surgeon: Oskar Meyer MD; Location: [facility] BEDSIDE PROCEDURE; Service: General; Laterality: Left; temporary dialysis catheter Av fistula repair 07/11/2012 Procedure: AV FISTULA GRAFT REPAIR/REVISION; Surgeon: Oskra Meyer MD; Location: [facility]; Service: Vascular; Laterality: Left; Superficialization of brachiobasilic fistula and right IJ perm cath insertion Dialysis fistula creation 07/11/2012 Procedure: DIALYSIS CATHETER INSERTION; Surgeon: Oskar Meyer MD; Location: [facility] OR; Service: Vascular; Laterality: Left; removed dialysis catheter from left neck and placed new on in left chest, attempted in right neck but unable to place Av fistula placement Right 02/09/2014 Procedure: AV FISTULA; Surgeon: Oskar Meyer MD; Location: [facility] OR; Service: Vascul ar; Laterality: Right; History [...] KIDS. CURRENTLY UNEMPLOYED, BEFOR E WORKED AT [employer] IN [place]. Quit METHAMPHETAMINES PER PATIENT after t he [...] mg Intravenous See Admin Instructions vitamin B bnaoubk-R-jojmh acid 1 tablet Oral Daily Continuous Infusions [...] USE Clotted AVF 11/04 when hospitalized at [facility] and had tunneled catheter placed. Right upper [...] Results Component Value Date PTHINTACT 255* 04/02/2012 [id number] <12* 04/02/2012 Lab Results Component Value Date TSH 8.41* 09/11/2012 TSH 7.30* 07/06/2012 TSH 16.60* 04/03/2012 Lab Results Component Value Date URICACID 8.2 04/02/2012 Lab Results Component Value Date HGBA1C 5.8 11/10/2013 HGBA1C UNABLE TO CALCULATE 09/11/2012 HGBA1C 6.0 05/14/2012 IMAGING X-ray Chest 1 View 03/18/2014 CAROL TARIQ 1965 48 years XR CHEST 1 [...] ASSESSMENT & [facility] [place] [facility] ACCESS: LIJ PERMACATH IN USE Clotted AVF 11/04 when hospitalized at [facility] and had tunneled catheter placed. Right upper [...] Leukocytosis resolved. Afebrile. BACTEREMIA: blood cultures from [facility] positive for gram-positive cocci in 4 bottles. MSSA Started on vancomycin By ID On long-term doxycycline.?? For skin lesions 2-3 years ago TOLERATING HD WELL Discussed with Dr. Stevenson, awaiting for the last blood culture report Discussed with Dr. Zimmerman, will arrange for vancomycin 750 mg during hemodialysis 3 times a week until then 11/10/2013 at chronic hemodialysis unit in [place], I have already infor med the nurse there. Tolerating hemodialysis well Discussed with his SEAN REID MD 03/19/2014 Elsie Hsu S - 03/19/2014 9:05 AM PDTFormatting of this note might be different from the betina forman. Progress Notes by Elsie Sharma MD at 03/19/14 09 Author: Elsie Sharma MD Service: Infectious Disease Author Type: Physician Filed: 03/19/14927 Date of Service: 03/19/14904 Status: Addendum Helicopter Crew Chief: Elsie Sharma MD (Physician) Related Notes: Original Note by Elsie Sharma MD (Physician) filed at 03/19/14 09 [facility] Service: Infectious Disease Progress Note Hospital [...] secondary to long-term dialysis; pres ented to [facility] on 03/14 with symptoms of cough, chills, myalgias, fevers. P eyal was thought to have pneumonia, possible septicemia. Cultures were drawn and he was s tarted on vancomycin and Zosyn and levofloxacin. He was then shift to [facility] for further ma nagement. Recently had right arm brachial basilic fistula creation in January 2014. Blood cultures drawn at [facility] prior to transfer now showing gram-positive [...] drawn, antibiotics given and shifted initially to [facility] and then subsequently here. His medication at presentation includes doxycycline-unclear if he has continued to remain o n this-was due to complete this in April as per last infectious disease note. However he has not followed up with ID since November 2012. Events Overnight: Blood culture growth from [facility] is MSSA in 4 out o [...] mg Intravenous See Admin Instructions vitamin B zzphxzv-R-gmplu acid 1 tablet Oral Daily Continuous Infusions [...] 03/19/2014 Microbiology Results Blood Culture Set 2 [[id number]] Collected: 03/17/14 1354 Order Status: Completed Updated: 03/19/14 0628 Specimen Information: Blood / Blood Specimen Description BLOOD, PERIPHERAL DRAW SPECIAL REQUESTS L HAND SPECIAL REQUESTS Result: Testing performed at [facility];[address] [place] [address] CULTURE NO GROWTH CULTURE Result: Testing performed at [facility], [address] [place] [address] Blood Culture Set 1 [[id number]] (Abnormal) Collected: 03/17/14 1351 Order Status: Completed Updated: 03/18/14 1621 Specimen Information: Blood / Blood Line Draw Specimen Description BLOOD, LINE DRAW SPECIAL REQUESTS DIAL.LINE SPECIAL REQUESTS Result: Testing performed at [facility];[address] [place] [address] GRAM STAIN GRAM-POSITIVE COCCUS (A) GRAM STAIN SEEN IN AEROBIC BOTTLE GRAM STAIN SMEAR RESULTS CALLED TO AND READ BACK BY: GRAM ANNIE Martinez IN 6RP ON 03/18/14 AT 1620 RN AMBULATORY CULTURE WORK UP IN PROGRESS AT [facility] CULTURE FINDING OF ORGANISM GROWTH (A) CULTURE TIME TO DETECTION: CULTURE 0.95 DAYS CULTURE Result: Testing performed at [facility], [address] [place] [address] Rapid FLU A and B [[id number]] Collected: 03/15/142056 Negative for Influenzae Type A [...] present he has none of these. Previous ORNY 2 have not shown any vegetation. Fever with bacteremia: Blood cultures at [facility] are now identified as MSSA in [...] Management by Dennis Velasquez RN at 03/18/14 9938 Author: Dennis Velasquez RN Service: (none) Author Type: Stationary Engineer Filed: 03/18/14 6765 Date of Service: 09/25/14 1438 Status: Signed Helicopter Crew Chief: Dennis Velasquez RN (Stationary Engineer) Food voucher given to pt's . Explained [...] Service: (none) Author Type: Physician Filed: 03/18/14 135 Date of Service: 03/18/14 135 Status: Signed Helicopter Crew Chief: Douglas Stevenson MD (Physician) [facility] Service: Hospitalist Progress Note Hospital Day: LOS: 3 days Consultants: Treatment Team: Consulting Physician: Kisha Tello MD Consulting Physician: Oskar Meyer MD Consulting Physician: Cosmo Soria MD Admitting Provider: Paulie Mcgarry MD The first problem in assessment is the principal problem. ASSESSMENT/ PLAN 1. Staph aureus bacteremia. 4 out of 4 bottles, Actually left (after review of X ray from [facility]) lower lobe pneumonia, most likely bacterial: Most [...] . 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 Progress Notes by Curtis Victoria RPH at 03/18/14 115 Author: Curtis Victoria RPH Service: (none) Author Type: Pharmacist Filed: 03/18/14 2327 Date of Service: 03/18/141156 Status: Signed Helicopter Crew Chief: Curtis Victoria RPH (Pharmacist) Initiation of Vancomycin Pharmacy Dosing Carol Potter 48 y.o. male 1.702 m (5' 7") 71.9 kg (158 lb 8.2 oz) Body mass index is 24.82 kg/(m^2). [place] Body Weight: Adjusted Body Weight: CREATININE Date Value Range Status 03/18/2014 5.28* 0.70 - 1.30 mg/dL Final Testing performed at [facility], [address] [place] [address] Estimated CrCl : CREATININE: 5.28 mg/dL ABNORMAL (03/18/14 0433) Estimated creatinine clearance - 15.6 mL/min Indications: empiric Dose per Protocol: Vanco dialysis protocol- 1.5g vanco load then pt will get 750mg IV in last hour of each ratna lysis. First Dose to be Given: 03/17 Pharmacist: CURTIS VICTORIA 03/18/2014 11:53 AM Csomo Lang MD - 03/18/2014 11:43 AM PDTFormatting of this note might be different from the or iginal. Progress Notes by Cosmo Soria MD at 03/18/14 6933 Author: Cosmo Soria MD Service: Nephrology Author Type: Physician Filed: 03/18/14 336 Date of Service: 03/18/14 114 Status: Signed Helicopter Crew Chief: Cosmo Soria MD (Physician) PCP : [facility] LOS: 3 days Carol Potter is a 48 y.o. 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 Clotted AVF 11/04 when hospitalized at [facility] and had tunneled catheter placed. Right upper extremity brachiocephalic fistula by Dr. Meyer 02/04 Interval history: Carol Potter feels 'good' today. Overnight events: Discharge held with the report of blood cultures from [facility] positive for g maame-positive cocci in [...] who is dialyzed Saturday and Saturday at [place] dialysis unit using left IJ tunnel ed dialysis catheter (last HD 03/15/14). His primary neuro psych sales specialist is Dr. Timmons. Currently admitted with fever [...] Leukocytosis resolved. Afebrile. However blood cultures from [facility] positive for gram-positive cocci in 4 bottles. [...] charting completed later after rounds. Dictation software, [employer], used which may contain error for similar sounding words. Personal communication requested for any clarification. Prognosis guarded in view of multiple comorbid illnesses and ESRD Dr. Reid will assume nephrology care as of 5 pm tonight uresh, Kisha Rousseau MD - 03/18/2014 11:33 AM PDT Progress Notes by Kisha Tello MD at 03/18/14 1133 Author: Kisha Tello MD Service: (none) Author Type: Physician Filed: 03/18/14 1702 Date of Service: 03/18/14 113 Status: Signed Helicopter Crew Chief: Kisha Tello MD (Physician) [facility] Service: Infectious Disease Progress Note Hospital [...] secondary to long-term dialysis; pres ented to [facility] on 03/14 with symptoms of cough, chills, myalgias, fevers. Nik birch was thought to have pneumonia, possible septicemia. Cultures were drawn and he was s tarted on vancomycin and Zosyn and levofloxacin. He was then shift to [facility] for further ma nagement. Recently had right arm brachial basilic fistula creation in January 2014. Blood cultures drawn at [facility] prior to transfer now showing gram-positive [...] drawn, antibiotics given and shifted initially to [facility] and then subsequently here. His medication [...] mg Intravenous See Admin Instructions vitamin B uatogvq-Z-jerqg acid 1 tablet Oral Daily Continuous Infusions [...] failure ASSESSMENT & PLAN Septicemia Fever with dxfhcrahrh-gvin-kxqxnkab cocci seen in 4 out of 4 bottles drawn at [place] Previous history has been with MSSA and [...] have not shown any vegetation. Reports from [facility] with regard to the bacteremia pending [...] Notes by Douglas Stevenson MD at 03/17/14 092 Author: Douglas Stevenson MD Service: (none) Author Type: Physician Filed: 03/17/144 Date of Service: 03/17/141326 Status: Signed Helicopter Crew Chief: Douglas Stevenson MD (Physician) [facility] Service: Hospitalist Progress Note Hospital Day: [...] . Code Status: Full Code Dictation and cam milling machine operator or software, Coridea, used which may contain error for similar [...] bicarbonate 1,300 mg Oral BID vitamin B gqzolkp-O-dlumg acid 1 tablet Oral Daily Continuous Infusions PRN Medications acetaminophen, acetaminophen, albumin human, albuterol, albuterol, loperamide, ondansetron, ondansetron, polyethylene glycol, sevelamer, sodium chloride PROBLEM LIST Principal Problem: Pneumonia, organism unspecified Active Problems: Secondary hyperparathyroidism (of renal origin) Diabetes mellitus with ESRD (end-stage renal disease) HTN (hypertension) ESRD (end stage renal disease) on dialysis Anemia of chronic kidney failure Dogulas Stevenson MD 03/17/20141:27 PM Cosmo Lang MD - 11:25 AM PDT Progress Notes by Cosmo Soria MD at 03/17/14 1125 Author: Cosmo Soria MD Service: Nephrology Author Type: Physician Filed: 03/17/14 1134 Date of Service: 03/17/141124 Status: Signed Helicopter Crew Chief: Cosmo Soria MD (Physician) PCP : [facility] LOS: 2 days Carol Potter is a 48 y.o. 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 Clotted AVF 11/04 when hospitalized at [facility] and had tunneled catheter placed. Right upper [...] who is dialyzed Saturday and Saturday at [place] dialysis unit using left IJ tunnel ed dialysis catheter (last HD 03/15/14). His primary neuro psych sales specialist is Dr. Timmons. Currently admitted with fever [...] resume outpatient maintenance hemodialysis on a Saturday We saturday schedule Needs follow-up with Dr. Meyer for [...] I/O should be done. COSMO SORIA MD 03/17/[address] Stevenson. Seen earlier in the day and charting completed later after rounds. Dictation software, Coridea, used which may contain error for similar sounding words. Personal communication requested for any clarification. Prognosis guarded in view of multiple comorbid illnesses and ESRD Douglas Abraham MD - 2:44 PM PDT Progress Notes by Douglas Stevenson MD at 03/16/14 1794 Author: Douglas Stevenson MD Service: (none) Author Type: Physician Filed: 03/16/14 6123 Date of Service: 03/16/141443 Status: Signed Helicopter Crew Chief: Douglas Stevenson MD (Physician) [facility] Service: Hospitalist Progress Note Hospital Day: LOS: 1 day Consultants: Treatment Team: Consulting Physician: Cosmo Soria MD Admitting Provider: Paulie Mcgarry MD The first problem in assessment is the principal problem. ASSESSMENT/ PLAN 1. Pneumonia: Most likely bacterial. Unclear which side. We'll try to get X ray report from [facility]. Continue Levaquin for now. Follow blood cultures from [facility]. Also to rule out any bacteremia [...] . Code Status: Full Code Dictation and cam milling machine operator or software, Coridea, used which may contain error for similar [...] bicarbonate 1,300 mg Oral BID vitamin B ljuocxl-E-qzgdi acid 1 tablet Oral Daily Continuous Infusions [...] 03/15/142210 Date of Service: 03/15/142210 Status: Signed Helicopter Crew Chief: Kelley Toussaint RPH (Pharmacist) Renal Dosing Monitoring: [...] Author: VANDANA Almaguer Service: (none) Author Type: Beam Builder Helper Filed: 03/15/142114 Date of Service: 03/15/142107 Status: Signed Helicopter Crew Chief: VANDANA Almaguer (Beam Builder Helper) 03/15/142105 Discharge Planning Evaluation Admitting Diagnosis sepsis [...] Margarita to relay msg to spouse - [phone] Mental Status Oriented Power of Applications Trainer Yes Power of Applications Trainer Name Spouse Resources Financial concerns No Transportation issues No Patient/Family concerns No Prescription Plan Yes Name of Pharmacy [facility] [place] Met with pt to discuss discharge planning, Pt is a 48 y.o., male Pt does not drive or work. He is not on home O2. He has dialysis at [facility] in [place] M/ W/F. He is not engaged in any other o/p medical services. He denies taking a blood thinner . He sees his PCP regularly. He does not see any other providers routinely. Pt has good f/u and excellent social support. No needs identified at this time. Patient's PCP is: [facility] Patient's insurance: Medicare / Medicaid / [facility] Coverage concerns: n/a Medication coverage/concerns: n/a Community [...] 03/22/142157 Date of Service: 03/15/142024 Status: Signed Helicopter Crew Chief: Paulie Mcgarry MD (Physician) Related Notes: Original Note by Paulie Mcgarry MD (Physician) filed at 03/15/142044 [facility] Service: Hospitalist Admission History & Physical [...] patient was sent from dialysis unit to [facility] and there chest x-ray apparently s howed infiltrate. His temperature was found to be 102.5. He got some Tylenol, Levaquin, vanc omycin and was sent to [facility] since they do not have a [...] W/ EGD; Surgeon: John Singleton MD; Location: [facility] ENDOSCOPY; Se rvice: Gastroenterology; Laterality: N/A; Av fistula placement 05/06/2012 Procedure: AV FISTULA; Surgeon: Oskar Meyer MD; Location: [facility] MAIN OR; Service: Vascul ar; Laterality: Left; Left arm possible right Unlisted procedure arthroscopy shoulder rt , ligaments Knee arthroscopy 07/07/2012 Procedure: KNEE - ARTHROSCOPY; Surgeon: Favio Raza MD; Location: [facility] MAIN OR; [facility]: Orthopedics; Laterality: Right; After 1530 Catheter removal 07/07/2012 Procedure: DIALYSIS CATHETER REMOVAL; Surgeon: Oskar Meyer MD; Location: [facility] BEDSIDE CT OCEDURE; Service: General; Laterality: Right; perm cath Dialysis fistula creation 07/07/2012 Procedure: DIALYSIS CATHETER INSERTION; Surgeon: Oskar Meyer MD; Location: [facility] BEDSIDE PROCEDURE; Service: General; Laterality: Left; temporary dialysis catheter Av fistula repair 07/11/2012 Procedure: AV FISTULA GRAFT REPAIR/REVISION; Surgeon: Oskar Meyer MD; Location: [facility]; Service: Vascular; Laterality: Left; Superficialization of brachiobasilic fistula and right IJ perm cath insertion Dialysis fistula creation 07/11/2012 Procedure: DIALYSIS CATHETER INSERTION; Surgeon: Oskar Meeyr MD; Location: [facility] MAIN OR; Service: Vascular; Laterality: Left; removed dialysis catheter from left neck and placed new on in left chest, attempted in right neck but unable to place Av fistula placement Right 02/09/2014 Procedure: AV FISTULA; Surgeon: Oskar Meyer MD; Location: [facility] MAIN OR; Service: Vascul ar; Laterality: [...] KIDS. CURRENTLY UNEMPLOYED, BEFOR E WORKED AT [employer] IN [place]. Quit METHAMPHETAMINES PER PATIENT after t he [...] is normal. Vitals reviewed. DATA Labs from [facility] reviewed as follows: WBC 10,900 with [...] I do not have radiology report from [place], just the report from the E R physician at [place] to Dr. Salas, our ER physician here. Will request full radiolog y report to be sent here. IV Levaquin is going to be started. He did get a dose in [facility]. 2. End-stage renal disease. Discussed with Dr. [...] Disposition: Code Status: Prior Primary Care Physician: [facility] Paulie Mcgarry MD 03/15/2014 documented in this encounter Consult Notes Kisha Tello MD - 03/17/2014 2:32 PM PDTFormatting of this note might be different f rom the original. Consult* by Kisha Tello MD at 03/17/14 1435 Author: Kisha Tello MD Service: (none) Author Type: Physician Filed: 03/17/14 6859 Date of Service: 03/17/14 143 Status: Signed Helicopter Crew Chief: Kisha Tello MD (Physician) [facility] Service: Infectious Disease Initial Consult Note [...] be secondary to long-term dialysis; presented to [facility] ost[facility] on 03/14 with symptoms of cough, chills, myalgias, fevers. Patient was thought to johnson ve pneumonia, possible septicemia. Cultures were drawn and he was started on vancomycin and Zosyn and levofloxacin. He was then shift to [facility] for further management. Recently had right arm brachial basilic fistula creation in January 2014. Blood cultures drawn at [facility] prior to transfer now showing gram-positive [...] drawn, antibiotics given and shifted initially to [facility] and then subsequently here. His medication [...] W/ EGD; Surgeon: John Singleton MD; Location: [facility] ENDOSCOPY; Se rvice: Gastroenterology; Laterality: N/A; Av fistula placement 05/06/2012 Procedure: AV FISTULA; Surgeon: Oskar Meyer MD; Location: [facility] MAIN OR; Service: Vascul ar; Laterality: Left; Left arm possible right Unlisted procedure arthroscopy shoulder rt , ligaments Knee arthroscopy 07/07/2012 Procedure: KNEE - ARTHROSCOPY; Surgeon: Favio Raza MD; Location: [facility] MAIN OR; S ervice: Orthopedics; Laterality: Right; After 1530 Catheter removal 07/07/2012 Procedure: DIALYSIS CATHETER REMOVAL; Surgeon: Oskar Meyer MD; Location: [facility] BEDSIDE CT OCEDURE; Service: General; Laterality: Right; perm cath Dialysis fistula creation 07/07/2012 Procedure: DIALYSIS CATHETER INSERTION; Surgeon: Oskar Meyer MD; Location: [facility] BEDSIDE PROCEDURE; Service: General; Laterality: Left; temporary dialysis catheter Av fistula repair 07/11/2012 Procedure: AV FISTULA GRAFT REPAIR/REVISION; Surgeon: Oskar Meyer MD; Location: [facility]; Service: Vascular; Laterality: Left; Superficialization of brachiobasilic fistula and right IJ perm cath insertion Dialysis fistula creation 07/11/2012 Procedure: DIALYSIS CATHETER INSERTION; Surgeon: Oskar Meyer MD; Location: [facility] MAIN OR; Service: Vascular; Laterality: Left; removed dialysis catheter from left neck and placed new on in left chest, attempted in right neck but unable to place Av fistula placement Right 02/09/2014 Procedure: AV FISTULA; Surgeon: Oskar Meyer MD; Location: [facility] MAIN OR; Service: Vascul ar; Laterality: [...] mg Intravenous See Admin Instructions vitamin B jycxxqo-O-rufcp acid 1 tablet Oral Daily Continuous Infusions [...] KIDS. CURRENTLY UNEMPLOYED, BEFOR E WORKED AT [employer] IN [place]. Quit METHAMPHETAMINES PER PATIENT after t he [...] 71.9 kg (158 lb 8.2 oz) (03/17 0428) Physical Exam GENERAL: vitals reviewed. Non toxic [...] tenderness left upper quadrant-not consistent on exam. Gowen el sounds appreciated PERIPHERIES: No edema, varicosities [...] GLUCOSEU NEGATIVE 10/10/2012 Reviewed available records from [facility], laboratory data, microbiology data and radio logy data PROBLEM LIST Principal Problem: Pneumonia, organism unspecified Active Problems: Secondary hyperparathyroidism (of renal origin) Diabetes mellitus with ESRD (end-stage renal disease) HTN (hypertension) ESRD (end stage renal disease) on dialysis Anemia of chronic kidney failure ASSESSMENT & PLAN Septicemia Fever with jxaxbjjcij-txaj-bfclbmjs cocci seen in 4 out of 4 bottles drawn at [place] Previous history has been with MSSA and [...] Code Status: Full Code Primary Care Physician: [facility] Thank you for allowing me to participate in the care of this patient. I will continue to follow with you. Kisha Tello MD 03/17/2014 Nik Lang MD - 03/16/2014 2:02 PM PDTFormatting of this note might be different from the origi nal. Consult* by Cosmo Soria MD at 03/16/14 1402 Author: Cosmo Soria MD Service: Nephrology Author Type: Physician Filed: 03/16/14 1430 Date of Service: 03/16/14 1402 Status: Signed Helicopter Crew Chief: Cosmo Soria MD (Physician) [facility] Service: NEPHROLOGY CONSULT Note Carol Potter 48 y.o. [id number] male PCP is [facility] Hospital Day: LOS: 1 day Date of Admission: 03/16/2014 Requesting Physician: Dr. Mcgarry/Dr. Stevenson Reason for Admission: Fever Reason for consult: ESRD management History Obtained From: patient, chart review CHIEF COMPLAINT: I had fever HISTORY OF PRESENT ILLNESS: Carol Potter is a 48 y.o. 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 Clotted AVF 11/04 when hospitalized at [facility] and had tunneled catheter placed. Right upper extremity brachiocephalic fistula by Dr. Meyer 02/04 Presented with fever at the dialysis unit and complained of not feeling well for the past 2 -3 days with cough, diffuse body aches. Indicated one of his granddaughters being sick with a mild infection which resolved. Sent to [facility] after completion of his dialysis treatment [...] i s dialyzed Saturday and Saturday at [place] dialysis unit using left IJ tunneled ratna lysis catheter (last HD 03/15/14). His primary neuro psych sales specialist is Dr. Timmons. He is now Admitted [...] charting completed later after rounds. Dictation software, Coridea, used which may contain error for similar [...] 03/15/141923 Date of Service: 03/15/141923 Status: Signed Helicopter Crew Chief: Anthony Haque RN (Registered Nurse) MD at bedside. Ed Haque RN 03/15/141923 heyse Favio rosenbaum MD - 03/15/2014 7:21 PM PDTFormatting of this note might be different from the or iginal. ED Provider Notes by Favio Salas MD at 03/15/141920 Author: Favio Salas MD Service: (none) Author Type: Physician Filed: 03/15/142014 Date of Service: 03/15/141920 Status: Signed Helicopter Crew Chief: Favio Salas MD (Physician) [facility] Department of Emergency Medicine ED Pre-arrival Provider to Provider 04/01/2012 04/30/2012 10/03/2012 10/27/2013 03/15/2014 Pre-arrival Provider Another ED - Another ED - - Provider Name Dr. Oro ([place]) Nithya Tavera ([facility]) Nikky [facility] Josh johnson Dr. Cervantes, [facility] ED [place] Does provider wish to be contacted after [...] 126/54, T 102.5 Currently Involved Consultants at [facility] - NONE Likely need rehab services and will likely require dilaysis while admitted - - History of Present Illness Patient Identification Carol Potter is a 48 y.o. male. Patient information was obtained from patient. History/Exam limitations: none. Patient presented to the Emergency Department [place] [facility] Room: Chief Complaint Chief Complaint Patient presents with Blood Infection Xfer from [facility] for Sepsis, FUO, and ESRD/HD 48 y.o. male with chills and cough. Patient states that he has been sick all weekend with upper respiratory symptoms as well as myalgias. He has been having subjective fevers and ch ills. Little bit of abdominal pain worse when coughing. He went to dialysis today and effie use of his chills and fever they sent him to [facility]. They are his workup re vealed [...] alleviati on with Tylenol. Primary Care Doctor: [facility] Past Medical History Diagnosis Date [...] W/ EGD; Surgeon: John Singleton MD; Location: [facility] ENDOSCOPY; Se rvice: Gastroenterology; Laterality: N/A; Av fistula placement 05/06/2012 Procedure: AV FISTULA; Surgeon: Oskar Meyer MD; Location: [facility] MAIN OR; Service: Vascul ar; Laterality: Left; Left arm possible right Unlisted procedure arthroscopy shoulder rt , ligaments Knee arthroscopy 07/07/2012 Procedure: KNEE - ARTHROSCOPY; Surgeon: Favio Raza MD; Location: [facility] MAIN OR; S ervice: Orthopedics; Laterality: Right; After 1530 Catheter removal 07/07/2012 Procedure: DIALYSIS CATHETER REMOVAL; Surgeon: Oskar Meyer MD; Location: [facility] BEDSIDE CT OCEDURE; Service: General; Laterality: Right; perm cath Dialysis fistula creation 07/07/2012 Procedure: DIALYSIS CATHETER INSERTION; Surgeon: Oskar Meyer MD; Location: [facility] BEDSIDE PROCEDURE; Service: General; Laterality: Left; temporary dialysis catheter Av fistula repair 07/11/2012 Procedure: AV FISTULA GRAFT REPAIR/REVISION; Surgeon: Oskar Meyer MD; Location: [facility]; Service: Vascular; Laterality: Left; Superficialization of brachiobasilic fistula and right IJ perm cath insertion Dialysis fistula creation 07/11/2012 Procedure: DIALYSIS CATHETER INSERTION; Surgeon: Oskar Meyer MD; Location: [facility] MA[facility] OR; Service: Vascular; Laterality: Left; removed dialysis catheter from left neck and placed new on in left chest, attempted in right neck but unable to place Av fistula placement Right 02/09/2014 Procedure: AV FISTULA; Surgeon: Oskar Meyer MD; Location: [facility] MAIN OR; Service: Vascul ar; Laterality: [...] KIDS. CURRENTLY UNEMPLOYED, BEFOR E WORKED AT [employer] IN [place]. Quit METHAMPHETAMINES PER PATIENT after t he [...] in the HPI. Physical Exam Filed Vitals: 03/15/14 191 BP: 104/51 Pulse: 96 Temp: 98.6 F [...] hemodynamically stable. We will contact her ad [facility]. We will continue to monitor him closely and reevaluate. 7:[address] Epstein ([facility]) who will see him for admission. Records Reviewed Old medical records. Previous electrocardiograms. Nursing notes. Previous radiology studies. Laboratory Evaluation Results None Lab Interpretation I have reviewed lab results from the emergency department workup and abnormal results have been posted to the chart. Pertinent positive and negative findings have been addressed appr opriately. Radiology and EKG Evaluation Imaging Results None ECG from 1952: Sinus rhythm at [address], QRS, QT, and axis are normal. No [...] recognition system. The possibility of "sound alike" cam milling machine operator errors, addition and/or deletions may occur. If there is any question p lease contact the author of the document. Procedures Additional Documentation Procedures Favio Salas MD 03/15/142014 onversion Transactio n, Provider Unknown - 03/15/2014 7:13 PM PDT ED Notes by Prisca Liu at 03/15/141912 Author: Prisca Liu Service: (none) Author Type: Public Health Assistant Filed: 03/15/141912 Date of Service: 03/15/141912 Status: Signed Helicopter Crew Chief: Prisca Liu (Public Health Assistant) Bed: 17 Expected date: 03/15/14 Expected time: 7:10 PM Means of arrival: Ambulance Comments: onver quique Transaction, Provider Unknown - 03/15/2014 6:09 PM PDT ED Notes by Tucker Garcia RN at 03/15/141808 Author: Tucker Garcia RN Service: (none) Author Type: Registered Nurse Filed: 03/15/141810 Date of Service: 03/15/141808 Status: Signed Helicopter Crew Chief: Tucker Garcia RN (Registered Nurse) Pt is a transfer from [facility] for sepsis, FUO, and ESRD/HD. ESRD/HD, last r un this AM, cardiac hx, diabetes, GI bleed, and hx meth use. Pt arrived at [facility] wi th c/o body aches and hot/cold flashes, also vomited earlier. Pt's highest temp noted at 10 3.1, pt a/ox4, emotionally labile, has not voided. Pt somewhat diaphoretic at departure. L actic acid 3.4, trop 0.2, wbc 10.9. Has HD port Lt subclavian area, not accessed at [facility]. Tucker Garcia RN 09/22/14 1811 docume nted in this encounter Miscellaneous Notes Plan of Care - Conversion Transaction, Provider Unknown - 03/19/2014 10:35 AM PDT Plan of Care by Devaughn Flores RN at 03/19/14 1035 Author: Devaughn Flores RN Service: (none) Author Type: Registered Nurse Filed: 03/19/14 1035 Date of Service: 03/19/14 103 Status: Signed Helicopter Crew Chief: Devaughn Flores RN (Registered Nurse) Patient is doing well up walking frequently in good spirits and ready to go home lan o f Care - Elsie Sharma - 03/18/2014 5:14 PM PDTFormatting of this note might be diff erent from the original. Plan of Care by Elsie Sharma MD at 03/18/14 1714 Author: Elsie Sharma MD Service: Infectious Disease Author Type: Physician Filed: 03/18/14 1716 Date of Service: 03/18/141713 Status: Signed Helicopter Crew Chief: Elsie Sharma MD (Physician) Blood cultures obtained [...] of Care by Devaughn Flores RN at 03/18/14 0855 Author: Devaughn Flores RN Service: (none) Author Type: Registered Nurse Filed: 03/18/1455 Date of Service: 03/18/14854 Status: Signed Helicopter Crew Chief: Devaughn Flores RN (Registered Nurse) . docume [...] in this encounter Results External Lab: [facility] (03/20/2014 3:47 AM PDT) + + + [...] | | | | | [place] [id number] | | | | + + + + + + | Non- | 3.53 (L)Comment: Testing | 4.20 - 5.70 | EXTERNAL | | | Red Blood | performed at [facility], [address] | M/uL | LAB | | | Cells | [address], | | | | | Counted | [place] [address] | | | | + + + + + + | Hemoglobin | 10.8 (L)Comment: Testing | 13.2 - 17.0 | EXTERNAL | | | | performed at [facility], [address] | g/dL | LAB | | | | [address], | | | | | | [place] [id number] | | | | + + + + + + | Hematocrit, | 31.6 (L)Comment: Testing | 39.0 - 50.0 % | EXTERNAL | | | POC | performed at [facility], [address] | | LAB | | | | [address], | | | | | | [place] [address] | | | | + + + + + + | MCV | 89.5Comment: Testing | 80.0 - 100.0 fl | EXTERNAL | | | | performed at [facility], [address] | | LAB | | | | [address], | | | | | | [place] [address] | | | | + + + + + + | MCH | 30.5Comment: Testing | 27.0 - 34.0 pg | EXTERNAL | | | | performed at [facility], [address] | | LAB | | | | [address], | | | | | | [place] [address] | | | | + + + + + + | MCHC | 34.0Comment: Testing | 32.0 - 35.5 | EXTERNAL | | | | performed at [facility], [address] | g/dL | LAB | | | | [address], | | | | | | [place] [address] | | | | + + + + + + | RDW-CV | 47.3Comment: Testing | 37 - 53 fl | EXTERNAL | | | | performed at [facility], [address] | | LAB | | | | [address], | | | | | | [place] [address] | | | | + + + + + + | Platelet | 167Comment: Testing | 150 - 400 K/uL | EXTERNAL | | | Count | performed at [facility], [address] | | LAB | | | Plasma | [address], | | | | | | [place] [address] | | | | + + + + + + | MPV | 8.0Comment: Testing | fl | EXTERNAL | | | | performed at [facility], [address] | | LAB | | | | [address], | | | | | | [place] [address] | | | | + + + + + + | Differentia | AUTOMATEDComment: | | EXTERNAL | | | l Type | Testing performed at | | LAB | | | | [facility], [address] | | | | | | [place] | | | | | | [address] | | | | + + + + + + | % Segmented | 62.6Comment: Testing | % | EXTERNAL | | | | performed at [facility], [address] | | LAB | | | Neutrophils | [address], | | | | | | [place] [address] | | | | + + + + + + | % | 14.8Comment: Testing | % | EXTERNAL | | | Lymphocytes | performed at [facility], [address] | | LAB | | | | [address], | | | | | | [place] [address] | | | | + + + + + + | % Monocytes | 20.2Comment: Testing | % | EXTERNAL | | | | performed at [facility], [address] | | LAB | | | | [address], | | | | | | [place] [address] | | | | + + + + + + | % | 1.7Comment: Testing | % | EXTERNAL | | | Eosinophils | performed at [facility], [address] | | LAB | | | | [address], | | | | | | [place] [address] | | | | + + + + + + | % Basophils | 0.7Comment: Testing | % | EXTERNAL | | | | performed at [facility], [address] | | LAB | | | | [address], | | | | | | [place] [address] | | | | + + + + + + | Absolute | 4.1Comment: Testing | 1.9 - 7.4 K/uL | EXTERNAL | | | Segmented | performed at [facility], [address] | | LAB | | | Neutrophils | [address], | | | | | | [place] [address] | | | | + + + + + + | Absolute | 1.0Comment: Testing | 1.0 - 3.9 K/uL | EXTERNAL | | | Lymphocytes | performed at [facility], [address] | | LAB | | | | [address], | | | | | | [place] [address] | | | | + + + + + + | Absolute | 1.3 (H)Comment: Testing | 0 - 0.8 K/uL | EXTERNAL | | | Monocytes | performed at [facility], [address] | | LAB | | | | [address], | | | | | | [place] [address] | | | | + + + + + + | Absolute | 0.1Comment: Testing | 0 - 0.5 K/uL | EXTERNAL | | | Eosinophils | performed at [facility], [address] | | LAB | | | | [address], | | | | | | [place] [address] | | | | + + + + + + | Absolute | 0.0Comment: Testing | 0 - 0.1 K/uL | EXTERNAL | | | Basophils | performed at [facility], [address] | | LAB | | | | [address], | | | | | | [place] [address] | | | | + + + [...] | | | | | [place] [address] | | | | + + + + + + | K | 3.6Comment: Testing | 3.5 - 4.9 | EXTERNAL | | | | performed at [facility], [address] | mmol/L | LAB | | | | [address] [address], | | | | | | [place] [address] | | | | + + + + + + | Cl | 97 (L)Comment: Testing | 99 - 109 mmol/L | EXTERNAL | | | | performed at [facility], [address] | | LAB | | | | [address], | | | | | | [place] [address] | | | | + + + + + + | CO2 | 25Comment: Testing | 23 - 32 mmol/L | EXTERNAL | | | | performed at [facility], [address] | | LAB | | | | [address], | | | | | | [place] [address] | | | | + + + + + + | Anion Gap | 11Comment: Testing | 5 - 20 mmol/L | EXTERNAL | | | | performed at [facility], [address] | | LAB | | | | [address], | | | | | | [place] [address] | | | | + + + + + + | Glucose, | 91Comment: Testing | 65 - 99 mg/dL | EXTERNAL | | | Fasting | performed at [facility], [address] | | LAB | | | | [address], | | | | | | [place] [address] | | | | + + + + + + | BUN | 27 (H)Comment: Testing | 8 - 25 mg/dL | EXTERNAL | | | | performed at [facility], [address] | | LAB | | | [address], | | | | | | [place] [address] | | | | + + + + + + | Creatinine | 4.91 (H)Comment: Testing | 0.70 - 1.30 | EXTERNAL | | | | performed at [facility], [address] | mg/dL | LAB | | | | [address], | | | | | | [place] [address] | | | | + + + + + + | BUN/Creatin | 5Comment: Testing | | EXTERNAL | | | ine Ratio | performed at [facility], [address] | | LAB | | | | [address] [address], | | | | | | [place] [address] | | | | + + + + + + | Calcium | 8.1 (L)Comment: Testing | 8.5 - 10.2 | EXTERNAL | | | | performed at [facility], [address] | mg/dL | LAB | | | | [address] [place], | | | | | | [place] [address] | | | | + + + [...] | | | | | [place] [address] | | | | + + + [...] | | | | | [place] [address] | | | | + + + + + + | Non- | 3.50 (L)Comment: Testing | 4.20 - 5.70 | EXTERNAL | | | Red Blood | performed at [facility], [address] | M/uL | LAB | | | Cells | [address], | | | | | Counted | [place] [address] | | | | + + + + + + | Hemoglobin | 10.6 (L)Comment: Testing | 13.2 - 17.0 | EXTERNAL | | | | performed at [facility], [address] | g/dL | LAB | | | | [address], | | | | | | [place] [address] | | | | + + + + + + | Hematocrit, | 31.2 (L)Comment: Testing | 39.0 - 50.0 % | EXTERNAL | | | POC | performed at [facility], [address] | | LAB | | | | [address], | | | | | | [place] [address] | | | | + + + + + + | MCV | 89.1Comment: Testing | 80.0 - 100.0 fl | EXTERNAL | | | | performed at [facility], [address] | | LAB | | | | [address], | | | | | | [place] [address] | | | | + + + + + + | MCH | 30.2Comment: Testing | 27.0 - 34.0 pg | EXTERNAL | | | | performed at [facility], [address] | | LAB | | | | [address], | | | | | | [place] [address] | | | | + + + + + + | MCHC | 33.9Comment: Testing | 32.0 - 35.5 | EXTERNAL | | | | performed at [facility], [address] | g/dL | LAB | | | | [address], | | | | | | [place] [address] | | | | + + + + + + | RDW-CV | 47.7Comment: Testing | 37 - 53 fl | EXTERNAL | | | | performed at [facility], [address] | | LAB | | | | [address], | | | | | | [place] [address] | | | | + + + + + + | Platelet | 131 (L)Comment: Testing | 150 - 400 K/uL | EXTERNAL | | | Count | performed at [facility], [address] | | LAB | | | Plasma | [address], | | | | | | [place] [address] | | | | + + + + + + | MPV | 8.6Comment: Testing | fl | EXTERNAL | | | | performed at [facility], [address] | | LAB | | | | [address], | | | | | | [place] [address] | | | | + + + + + + | Differentia | AUTOMATEDComment: | | EXTERNAL | | | l Type | Testing performed at | | LAB | | | | [facility], [address] | | | | | | [place] | | | | | | [address] | | | | + + + + + + | % Segmented | 72.3Comment: Testing | % | EXTERNAL | | | | performed at [facility], [address] | | LAB | | | Neutrophils | [address], | | | | | | [place] [address] | | | | + + + + + + | % | 11.9Comment: Testing | % | EXTERNAL | | | Lymphocytes | performed at [facility], [address] | | LAB | | | | [place] [place], | | | | | | [place] [address] | | | | + + + + + + | % Monocytes | 14.2Comment: Testing | % | EXTERNAL | | | | performed at [facility], [address] | | LAB | | | | [address], | | | | | | [place] [address] | | | | + + + + + + | % | 1.0Comment: Testing | % | EXTERNAL | | | Eosinophils | performed at [facility], [address] | | LAB | | | | [address], | | | | | | [place] [address] | | | | + + + + + + | % Basophils | 0.6Comment: Testing | % | EXTERNAL | | | | performed at [facility], [address] | | LAB | | | | [address], | | | | | | [place] [address] | | | | + + + + + + | Absolute | 6.6Comment: Testing | 1.9 - 7.4 K/uL | EXTERNAL | | | Segmented | performed at [facility], [address] | | LAB | | | Neutrophils | [address], | | | | | | [place] [address] | | | | + + + + + + | Absolute | 1.1Comment: Testing | 1.0 - 3.9 K/uL | EXTERNAL | | | Lymphocytes | performed at [facility], [address] | | LAB | | | | [address], | | | | | | [place] [address] | | | | + + + + + + | Absolute | 1.3 (H)Comment: Testing | 0 - 0.8 K/uL | EXTERNAL | | | Monocytes | performed at [facility], [address] | | LAB | | | | [address], | | | | | | [place] [address] | | | | + + + + + + | Absolute | 0.1Comment: Testing | 0 - 0.5 K/uL | EXTERNAL | | | Eosinophils | performed at [facility], [address] | | LAB | | | | [address], | | | | | | [place] [address] | | | | + + + + + + | Absolute | 0.1Comment: Testing | 0 - 0.1 K/uL | EXTERNAL | | | Basophils | performed at [facility], [address] | | LAB | | | | [place], | | | | | | [place] [address] | | | | + + + [...] | | | | | [place] [address] | | | | + + + + + + | K | 3.6Comment: Testing | 3.5 - 4.9 | EXTERNAL | | | | performed at [facility], [address] | mmol/L | LAB | | | | [place], | | | | | | [place] [address] | | | | + + + + + + | Cl | 94 (L)Comment: Testing | 99 - 109 mmol/L | EXTERNAL | | | | performed at [facility], [address] | | LAB | | | | [address], | | | | | | [place] [address] | | | | + + + + + + | CO2 | 23Comment: Testing | 23 - 32 mmol/L | EXTERNAL | | | | performed at [facility], [address] | | LAB | | | | [address], | | | | | | [place] [address] | | | | + + + + + + | Anion Gap | 15Comment: Testing | 5 - 20 mmol/L | EXTERNAL | | | | performed at [facility], [address] | | LAB | | | | [address], | | | | | | [place] [address] | | | | + + + + + + | Glucose, | 127 (H)Comment: Testing | 65 - 99 mg/dL | EXTERNAL | | | Fasting | performed at [facility], [address] | | LAB | | | | [address], | | | | | | [place] [address] | | | | + + + + + + | BUN | 49 (H)Comment: Testing | 8 - 25 mg/dL | EXTERNAL | | | | performed at [facility], [address] | | LAB | | | | [address], | | | | | | [place] [address] | | | | + + + + + + | Creatinine | 7.33 (H)Comment: Testing | 0.70 - 1.30 | EXTERNAL | | | | performed at [facility], [address] | mg/dL | LAB | | | | [address], | | | | | | [place] [address] | | | | + + + + + + | BUN/Creatin | 7Comment: Testing | | EXTERNAL | | | ine Ratio | performed at [facility], [address] | | LAB | | | | [address], | | | | | | [place] [address] | | | | + + + + + + | Calcium | 8.6Comment: Testing | 8.5 - 10.2 | EXTERNAL | | | | performed at [facility], [address] | mg/dL | LAB | | | | [address], | | | | | | [place] [address] | | | | + + + [...] W | | | | | | [facility], | | | | | | [place] [address] | | | | + + + [...] HAND | | | Testing performed at [facility];[address] | | | [facility];[place] [address] CULTURE | | | NO GROWTH | | | Testing performed at [facility], [address] [facility], [place], [place] | | | [address] | | + + + + +---------+ [...] Rad Conversion - 02/06/2019 10:59 AM PDT CAROL POTTER [...] | | | | | [place] [address] | | | | + + + + + + | Non- | 3.28 (L)Comment: Testing | 4.20 - 5.70 | EXTERNAL | | | Red Blood | performed at [facility], [address] | M/uL | LAB | | | Cells | [address], | | | | | Counted | [place] [address] | | | | + + + + + + | Hemoglobin | 9.8 (L)Comment: Testing | 13.2 - 17.0 | EXTERNAL | | | | performed at [facility], [address] | g/dL | LAB | | | | [address], | | | | | | [place] [address] | | | | + + + + + + | Hematocrit, | 29.6 (L)Comment: Testing | 39.0 - 50.0 % | EXTERNAL | | | POC | performed at [facility], [address] | | LAB | | | | [address], | | | | | | [place] [address] | | | | + + + + + + | MCV | 90.2Comment: Testing | 80.0 - 100.0 fl | EXTERNAL | | | | performed at [facility], [address] | | LAB | | | | [address], | | | | | | [place] [address] | | | | + + + + + + | MCH | 29.8Comment: Testing | 27.0 - 34.0 pg | EXTERNAL | | | | performed at [facility], [address] | | LAB | | | | [place], | | | | | | [place] [address] | | | | + + + + + + | MCHC | 33.1Comment: Testing | 32.0 - 35.5 | EXTERNAL | | | | performed at [facility], [address] | g/dL | LAB | | | | [address], | | | | | | [place] [address] | | | | + + + + + + | RDW-CV | 47.3Comment: Testing | 37 - 53 fl | EXTERNAL | | | | performed at [facility], [address] | | LAB | | | | [address], | | | | | | [place] [address] | | | | + + + + + + | Platelet | 93 (L)Comment: Testing | 150 - 400 K/uL | EXTERNAL | | | Count | performed at [facility], [address] | | LAB | | | Plasma | [address], | | | | | | [place] [address] | | | | + + + + + + | MPV | 8.9Comment: Testing | fl | EXTERNAL | | | | performed at [facility], [address] | | LAB | | | | [address], | | | | | | [place] [address] | | | | + + + + + + | Differentia | MANUALComment: Testing | | EXTERNAL | | | l Type | performed at [facility], [address] | | LAB | | | | [address], | | | | | | [place] [address] | | | | + + + + + + | Segmented | 78Comment: Testing | % | EXTERNAL | | | Neutrophils | performed at [facility], [address] | | LAB | | | Manual | [address], | | | | | | [place], [place] [address] | | | | + + + + + + | % Bands | 1Comment: Testing | % | EXTERNAL | | | | performed at [facility], [address] | | LAB | | | | [address], | | | | | | [place] [address] | | | | + + + + + + | Lymphocytes | 7Comment: Testing | % | EXTERNAL | | | Manual | performed at [facility], [address] | | LAB | | | | [address], | | | | | | [place] [address] | | | | + + + + + + | Monocytes | 14Comment: Testing | % | EXTERNAL | | | Manual | performed at [facility], [address] | | LAB | | | | [address], | | | | | | [place] [address] | | | | + + + + + + | Absolute | 7.0Comment: Testing | 1.9 - 7.4 K/uL | EXTERNAL | | | Neutrophils | performed at [facility], [address] | | LAB | | | | [place], | | | | | | [place] [address] | | | | + + + + + + | Bands | 0.1Comment: Testing | 0 - 0.2 K/uL | EXTERNAL | | | Manual | performed at [facility], [address] | | LAB | | | | [place] [address], | | | | | | [place] [address] | | | | + + + + + + | Absolute | 0.6 (L)Comment: Testing | 1.0 - 3.9 K/uL | EXTERNAL | | | Lymphocytes | performed at [facility], [address] | | LAB | | | | [address], | | | | | | [place] [address] | | | | + + + + + + | Absolute | 1.3 (H)Comment: Testing | 0 - 0.8 K/uL | EXTERNAL | | | Monocytes | performed at [facility], [address] | | LAB | | | | [facility] [address], | | | | | | [place] [address] | | | | + + + + + + | RBC | RBC AND PLT MORPHOLOGY | | EXTERNAL | | | Morphology | APPEAR NORMALComment: | | LAB | | | | Testing performed at | | | | | | [facility], [address] | | | | | | [place] | | | | | | [address] | | | | + + + [...] | | | | performed at [facility], [address] | mmol/L | LAB | | | | [place] [address], | | | | | | [place] [address] | | | | + + + + + + | K | 3.5Comment: Testing | 3.5 - 4.9 | EXTERNAL | | | | performed at [facility], [address] | mmol/L | LAB | | | | [address], | | | | | | [place] [address] | | | | + + + + + + | Cl | 93 (L)Comment: Testing | 99 - 109 mmol/L | EXTERNAL | | | | performed at [facility], [address] | | LAB | | | | [address], | | | | | | [place] [address] | | | | + + + + + + | CO2 | 27Comment: Testing | 23 - 32 mmol/L | EXTERNAL | | | | performed at [facility], [address] | | LAB | | | | [address], | | | | | | [place] [address] | | | | + + + + + + | Anion Gap | 11Comment: Testing | 5 - 20 mmol/L | EXTERNAL | | | | performed at [facility], [address] | | LAB | | | | [address], | | | | | | [place] [address] | | | | + + + + + + | Glucose, | 123 (H)Comment: Testing | 65 - 99 mg/dL | EXTERNAL | | | Fasting | performed at [facility], [address] | | LAB | | | | [address], | | | | | | [place] [address] | | | | + + + + + + | BUN | 31 (H)Comment: Testing | 8 - 25 mg/dL | EXTERNAL | | | | performed at [facility], [address] | | LAB | | | | [address], | | | | | | [place] [address] | | | | + + + + + + | Creatinine | 5.28 (H)Comment: Testing | 0.70 - 1.30 | EXTERNAL | | | | performed at [facility], [address] | mg/dL | LAB | | | | [address], | | | | | | [place] [address] | | | | + + + + + + | BUN/Creatin | 6Comment: Testing | | EXTERNAL | | | ine Ratio | performed at [facility], [address] | | LAB | | | | [address], | | | | | | [place] [address] | | | | + + + + + + | Calcium | 7.8 (L)Comment: Testing | 8.5 - 10.2 | EXTERNAL | | | | performed at [facility], [address] | mg/dL | LAB | | | | [address], | | | | | | [place] [address] | | | | + + + [...] W | | | | | | [address], | | | | | | [place] [address] | | | | + + + [...] HAND | | | Testing performed at [facility];[address] | | | [facility];[place] [address] CULTURE | | | NO GROWTH | | | Testing performed at [facility], [address] [facility], [place], [place] | | | [address] | | + + + + +---------+ [...] Martinez IN 6RP ON 03/18/14 AT 1620 RN AMBULATORY CULTURE | | | STAPHYLOCOCCUS AUREUSAbnormal | | | FINDING OF ORGANISM GROWTHAbnormal | | | TIME TO DETECTION: | | | 0.95 DAYS | | | Testing performed at [facility], | | | [address] [place] [address] Suscepibility for - | | | STAPHYLOCOCCUS [...] | | | | | [place] [address] | | | | + + + + + + | Non- | 3.57 (L)Comment: Testing | 4.20 - 5.70 | EXTERNAL | | | Red Blood | performed at [facility], [address] | M/uL | LAB | | | Cells | [address], | | | | | Counted | [place] [address] | | | | + + + + + + | Hemoglobin | 10.6 (L)Comment: Testing | 13.2 - 17.0 | EXTERNAL | | | | performed at [facility], [address] | g/dL | LAB | | | | [address], | | | | | | [place] [address] | | | | + + + + + + | Hematocrit, | 32.4 (L)Comment: Testing | 39.0 - 50.0 % | EXTERNAL | | | POC | performed at [facility], [address] | | LAB | | | | [address], | | | | | | [place] [address] | | | | + + + + + + | MCV | 90.8Comment: Testing | 80.0 - 100.0 fl | EXTERNAL | | | | performed at [facility], [address] | | LAB | | | | [address], | | | | | | [place] [address] | | | | + + + + + + | MCH | 29.8Comment: Testing | 27.0 - 34.0 pg | EXTERNAL | | | | performed at [facility], [address] | | LAB | | | [address], | | | | | | [place] [address] | | | | + + + + + + | MCHC | 32.8Comment: Testing | 32.0 - 35.5 | EXTERNAL | | | | performed at [facility], [address] | g/dL | LAB | | | | [address], | | | | | | [place] [address] | | | | + + + + + + | RDW-CV | 48.6Comment: Testing | 37 - 53 fl | EXTERNAL | | | | performed at [facility], [address] | | LAB | | | | [address], | | | | | | [place] [address] | | | | + + + + + + | Platelet | 73 (L)Comment: Testing | 150 - 400 K/uL | EXTERNAL | | | Count | performed at [facility], [address] | | LAB | | | Plasma | [address], | | | | | | [place] [address] | | | | + + + + + + | MPV | 9.0Comment: Testing | fl | EXTERNAL | | | | performed at [facility], [address] | | LAB | | | | [address], | | | | | | [place] [address] | | | | + + + + + + | Differentia | MANUALComment: Testing | | EXTERNAL | | | l Type | performed at [facility], [address] | | LAB | | | | [address], | | | | | | [place] [address] | | | | + + + + + + | Segmented | 69Comment: Testing | % | EXTERNAL | | | Neutrophils | performed at [facility], [address] | | LAB | | | Manual | [address], | | | | | | [place] [address] | | | | + + + + + + | % Bands | 15Comment: Testing | % | EXTERNAL | | | | performed at [facility], [address] | | LAB | | | | [address], | | | | | | [place] [address] | | | | + + + + + + | % | 1Comment: Testing | % | EXTERNAL | | | Metamyelocy | performed at [facility], [address] | | LAB | | | [address], | | | | | | [place] [address] | | | | + + + + + + | Lymphocytes | 11Comment: Testing | % | EXTERNAL | | | Manual | performed at [facility], [address] | | LAB | | | | [address], | | | | | | [place] [address] | | | | + + + + + + | Monocytes | 4Comment: Testing | % | EXTERNAL | | | Manual | performed at [facility], [address] | | LAB | | | | [address], | | | | | | [place] [address] | | | | + + + + + + | Absolute | 6.6Comment: Testing | 1.9 - 7.4 K/uL | EXTERNAL | | | Neutrophils | performed at [facility], [address] | | LAB | | | | [address], | | | | | | [place] [address] | | | | + + + + + + | Bands | 1.4 (H)Comment: Testing | 0 - 0.2 K/uL | EXTERNAL | | | Manual | performed at [facility], [address] | | LAB | | | | [address], | | | | | | [place] [address] | | | | + + + + + + | Absolute | 0.1 (H)Comment: Testing | K/uL | EXTERNAL | | | Metamyelocy | performed at [facility], [address] | | LAB | | | [address], | | | | | | [place] [address] | | | | + + + + + + | Absolute | 1.1Comment: Testing | 1.0 - 3.9 K/uL | EXTERNAL | | | Lymphocytes | performed at [facility], [address] | | LAB | | | | [address], | | | | | | [place] [address] | | | | + + + + + + | Absolute | 0.4Comment: Testing | 0 - 0.8 K/uL | EXTERNAL | | | Monocytes | performed at [facility], [address] | | LAB | | | | [address], | | | | | | [place] [address] | | | | + + + + + + | RBC | RBC AND PLT MORPHOLOGY | | EXTERNAL | | | Morphology | APPEAR NORMALComment: | | LAB | | | | Testing performed at | | | | | | [facility] [address] [facility] | | | | | | [place] | | | | | | [address] | | | | + + + [...] | | | | | [place] [address] | | | | + + + + + + | K | 3.9Comment: Testing | 3.5 - 4.9 | EXTERNAL | | | | performed at [facility], [address] | mmol/L | LAB | | | | [address], | | | | | | [place] [address] | | | | + + + + + + | Cl | 91 (L)Comment: Testing | 99 - 109 mmol/L | EXTERNAL | | | | performed at [facility], [address] | | LAB | | | | [address], | | | | | | [place] [address] | | | | + + + + + + | CO2 | 25Comment: Testing | 23 - 32 mmol/L | EXTERNAL | | | | performed at [facility], [address] | | LAB | | | | [address], | | | | | | [place] [address] | | | | + + + + + + | Anion Gap | 15Comment: Testing | 5 - 20 mmol/L | EXTERNAL | | | | performed at [facility], [address] | | LAB | | | | [address], | | | | | | [place] [address] | | | | + + + + + + | Glucose, | 108 (H)Comment: Testing | 65 - 99 mg/dL | EXTERNAL | | | Fasting | performed at [facility], [address] | | LAB | | | | [address], | | | | | | [place] [address] | | | | + + + + + + | BUN | 55 (H)Comment: Testing | 8 - 25 mg/dL | EXTERNAL | | | | performed at [facility], [address] | | LAB | | | | [address], | | | | | | [place] [address] | | | | + + + + + + | Creatinine | 8.10 (H)Comment: Testing | 0.70 - 1.30 | EXTERNAL | | | | performed at [facility], [address] | mg/dL | LAB | | | | [address], | | | | | | [place] [address] | | | | + + + + + + | BUN/Creatin | 7Comment: Testing | | EXTERNAL | | | ine Ratio | performed at [facility], [address] | | LAB | | | | [address], | | | | | | [place] [address] | | | | + + + + + + | Calcium | 8.2 (L)Comment: Testing | 8.5 - 10.2 | EXTERNAL | | | | performed at [facility], [address] | mg/dL | LAB | | | | [address], | | | | | | [place] [address] | | | | + + + [...] [address], | | | | | | [place] [address] | | | | + + + [...] [address];[place] | | | | | | [address] | | | | + + + [...] EXTERNAL | | | | performed at [facility];[address] | | LAB | | | | [address];[place] | | | | | | [address] | | | | + + + + + + | Non- | 3.62 (L)Comment: Testing | 4.20 - 5.70 | EXTERNAL | | | Red Blood | performed at [facility];[address] | M/uL | LAB | | | Cells | [address];[place] | | | | | Counted | [address] | | | | + + + + + + | Hemoglobin | 10.9 (L)Comment: Testing | 13.2 - 17.0 | EXTERNAL | | | | performed at [facility];888 | g/dL | LAB | | | | [address];[place] | | | | | | [address] | | | | + + + + + + | Hematocrit, | 32.5 (L)Comment: Testing | 39.0 - 50.0 % | EXTERNAL | | | POC | performed at [facility];[address] | | LAB | | | | [address];[place] | | | | | | [address] | | | | + + + + + + | MCV | 89.9Comment: Testing | 80.0 - 100.0 fl | EXTERNAL | | | | performed at [facility];[address] | | LAB | | | | [address];[place] | | | | | | [address] | | | | + + + + + + | MCH | 30.0Comment: Testing | 27.0 - 34.0 pg | EXTERNAL | | | | performed at [facility];[address] | | LAB | | | | [address];[place] | | | | | | [address] | | | | + + + + + + | MCHC | 33.4Comment: Testing | 32.0 - 35.5 | EXTERNAL | | | | performed at [facility];888 | g/dL | LAB | | | | [address];[place] | | | | | | [address] | | | | + + + + + + | RDW-CV | 49.4Comment: Testing | 37 - 53 fl | EXTERNAL | | | | performed at [facility];[address] | | LAB | | | | [address];[place] | | | | | | [address] | | | | + + + + + + | Platelet | 81 (L)Comment: Testing | 150 - 400 K/uL | EXTERNAL | | | Count | performed at [facility];[address] | | LAB | | | Plasma | [address];[place] | | | | | | [address] | | | | + + + + + + | MPV | 8.7Comment: Testing | fl | EXTERNAL | | | | performed at [facility];[address] | | LAB | | | | [address];[place] | | | | | | [address] | | | | + + + + + + | Differentia | MANUALComment: Testing | | EXTERNAL | | | l Type | performed at [facility];[address] | | LAB | | | | [address];[place] | | | | | | [address] | | | | + + + + + + | Segmented | 70Comment: Testing | % | EXTERNAL | | | Neutrophils | performed at [facility];888 | | LAB | | | Manual | [address];[place] | | | | | | [address] | | | | + + + + + + | % Bands | 19Comment: Testing | % | EXTERNAL | | | | performed at [facility];888 | | LAB | | | | [address];[place] | | | | | | [address] | | | | + + + + + + | Lymphocytes | 4Comment: Testing | % | EXTERNAL | | | Manual | performed at [facility];[address] | | LAB | | | | [address];[place] | | | | | | [address] | | | | + + + + + + | Monocytes | 7Comment: Testing | % | EXTERNAL | | | Manual | performed at [facility];[address] | | LAB | | | | [address];[place] | | | | | | [address] | | | | + + + + + + | Absolute | 8.3 (H)Comment: Testing | 1.9 - 7.4 K/uL | EXTERNAL | | | Neutrophils | performed at [facility];888 | | LAB | | | | [address];[place] | | | | | | [address] | | | | + + + + + + | Bands | 2.3 (H)Comment: Testing | 0 - 0.2 K/uL | EXTERNAL | | | Manual | performed at [facility];[address] | | LAB | | | | [address];[place] | | | | | | [address] | | | | + + + + + + | Absolute | 0.5 (L)Comment: Testing | 1.0 - 3.9 K/uL | EXTERNAL | | | Lymphocytes | performed at [facility];[address] | | LAB | | | | [address];[place] | | | | | | [address] | | | | + + + + + + | Absolute | 0.8Comment: Testing | 0 - 0.8 K/uL | EXTERNAL | | | Monocytes | performed at [facility];888 | | LAB | | | | [address];[place] | | | | | | [address] | | | | + + + + + + | RBC | RBC AND PLT MORPHOLOGY | | EXTERNAL | | | Morphology | APPEAR NORMALComment: | | LAB | | | | Testing performed at | | | | | | [facility];[address];[place] [address] | | | | + + + [...] | | | | performed at [facility], [address] | | LAB | | | | [address], | | | | | | [place] [address] | | | | + + + [...] | | | | | [place] [address] | | | | + + + [...] | | | | | [place] [address] | | | | + + + + + + | K | 4.0Comment: Testing | 3.5 - 4.9 | EXTERNAL | | | | performed at [facility], [address] | mmol/L | LAB | | | | [address], | | | | | | [place] [address] | | | | + + + + + + | Cl | 93 (L)Comment: Testing | 99 - 109 mmol/L | EXTERNAL | | | | performed at [facility], [address] | | LAB | | | | [address], | | | | | | [place] [address] | | | | + + + + + + | CO2 | 26Comment: Testing | 23 - 32 mmol/L | EXTERNAL | | | | performed at [facility], [address] | | LAB | | | | [address], | | | | | | [place] [address] | | | | + + + + + + | Anion Gap | 14Comment: Testing | 5 - 20 mmol/L | EXTERNAL | | | | performed at [facility], [address] | | LAB | | | | [address], | | | | | | [place] [address] | | | | + + + + + + | Glucose, | 131 (H)Comment: Testing | 65 - 99 mg/dL | EXTERNAL | | | Fasting | performed at [facility], [address] | | LAB | | | | [address], | | | | | | [place] [address] | | | | + + + + + + | BUN | 33 (H)Comment: Testing | 8 - 25 mg/dL | EXTERNAL | | | | performed at [facility], [address] | | LAB | | | | [address], | | | | | | [place] [address] | | | | + + + + + + | Creatinine | 5.86 (H)Comment: Testing | 0.70 - 1.30 | EXTERNAL | | | | performed at [facility], [address] | mg/dL | LAB | | | | [address], | | | | | | [place] [address] | | | | + + + + + + | BUN/Creatin | 6Comment: Testing | | EXTERNAL | | | ine Ratio | performed at [facility], [address] | | LAB | | | | [address], | | | | | | [place] [address] | | | | + + + + + + | Calcium | 7.8 (L)Comment: Testing | 8.5 - 10.2 | EXTERNAL | | | | performed at [facility], [address] | mg/dL | LAB | | | | [address], | | | | | | [place] [address] | | | | + + + [...] | | | | | at 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
--- OUTSIDE RECORDS SUMMARY | 2019-12-30 15:14 | XMS ---
PreManage Notification: CAROL STANTON Security Director Supply Events No recent Security Events currently on file CRITERIA MET - Group Notification - History of Sepsis Dx CARE PROVIDERS ROSA LOFTON [facility] 01/24/2018-Current PHONE: Unknown Name [facility]/[place] 05/22/2019-Current PHONE: [phone] Reinaldo has no Care Guidelines for this patient. Care History Medical/Surgical 02/13/2018 [facility] - PATIENT IS FOLLOWING VERY CLOSELY WITH [facility] EMPLOYMENT TRAINER HARDIK WATOSN. - PLEASE CALL SHIRLEY AT [phone] IF PATIENT IS SEEN IN THE ED. - PATIENT HAS A LONG EXTENSIVE HX WITH METHAMPHETAMINE USAGE. - PHYSICIAN DISCRETION- TOX SCREEN BEFORE TREATMENT. Care Recommendation: - USE EXTREME CAUTION IN GIVING NARCOTICS TO THIS PATIENT. - Avoid Discharge Narcotic prescriptions if at all possible. Please use clinical judgement. 02/04/2018 [facility] - PATIENT IS CURRENTLY ON COUMADIN [...] all possible. Please use clinical judgement. 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 -[facility] -Patient does have concerns with patient memory. [...] ED please contact Community Health WorkerBetzy at [phone]. These are guidelines and the provider should exercise clinical judgment when providing care. E.D. VISIT COUNT (12 MO.) 3 [facility] TOTAL 3 NOTE: Visits indicate total known visits. ED/UCC VISIT TRACKING (12 MO.) 12/30/2019 15:11 [facility] TYPE: Emergency COMPLAINT: - DIALYSIS SITE BLEEDING 08/07/2019 18:49 [facility] TYPE: Emergency COMPLAINT: - ARM BLEED DIAGNOSES: - Hemorrhage due to vascular prosthetic devices, implants and g - Gastro-esophageal reflux disease without esophagitis - Allergy status to penicillin - End stage renal disease - Hypothyroidism, unspecified - Type 2 diabetes mellitus with diabetic chronic kidney disease - Hemorrhage due to vascular prosthetic devices, implants and g - penitentiary (current) use of anticoagulants - Allergy status to other drugs, medicaments and biological sub - Atherosclerotic heart disease of [place] coronary artery witho - Allergy status to other antibiotic agents status - Other assisted (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 - Hypertensive chronic kidney disease with stage 5 chronic kidn 05/20/2019 15:45 [facility] TYPE: Emergency COMPLAINT: - BUMP ON ARM DIAGNOSES: - Gastro-esophageal reflux disease without esophagitis - Hypertensive chronic kidney disease with stage 5 chronic kidn - Atherosclerotic heart disease of [place] coronary artery witho - Allergy status to penicillin - Hypothyroidism, unspecified - Allergy status to other drugs, medicaments and biological sub - penitentiary (current) use of anticoagulants - End stage renal disease - Hypertensive chronic kidney disease with stage 5 chronic kidn - Allergy status to other antibiotic agents status - Dependence on renal dialysis - Personal history of nicotine dependence - Other specified soft tissue disorders - Type 2 diabetes mellitus with diabetic chronic kidney disease - Other assisted (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 INPATIENT VISIT TRACKING (12 MO.) No inpatient visits to display in this time frame [id number]
== END 2019-12-30 16:07 | disposition home or self-care (01) ==
LOC: ED 15:11
DX: T82.838A Hemorrhage due to vascular prosthetic devices, implants and grafts, initial encounter (principal); I12.0 Hypertensive chronic kidney disease with stage 5 chronic kidney disease or end stage renal disease; E11.22 Type 2 diabetes mellitus with diabetic chronic kidney disease; N18.6 End stage renal disease; I25.10 Atherosclerotic heart disease of native coronary artery without angina pectoris; M10.9 Gout, unspecified; Z88.8 Allergy status to other drugs, medicaments and biological substances; Z88.0 Allergy status to penicillin; Z79.899 Other long term (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; Z79.01 Long term (current) use of anticoagulants
CPT/HCPCS: 99283

== ENCOUNTER 2020-01-31 10:57 | Emergency (ER) | payer MEDICARE, OTHER ==
[~2020-01-31] VITALS: Ht 170.2 cm; Wt 83.9 kg
--- OUTSIDE RECORDS SUMMARY | 2020-01-31 11:00 | XMS ---
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 Care History Medical/Surgical 02/13/2018 [facility] - PATIENT IS FOLLOWING VERY CLOSELY WITH [facility] BUFFET SERVER HARDIK WATSON. - PLEASE CALL SHIRLEY AT [phone] IF PATIENT IS SEEN IN THE ED. - PATIENT HAS A LONG EXTENSIVE HX WITH METHAMPHETAMINE USAGE. - PHYSICIAN DISCRETION- TOX SCREEN BEFORE TREATMENT. Care Recommendation: - USE EXTREME CAUTION IN GIVING NARCOTICS TO THIS PATIENT. - Avoid Discharge Narcotic prescriptions if at all possible. Please use clinical judgement. 02/04/2018 [facility] - PATIENT IS CURRENTLY ON COUMADIN [...] all possible. Please use clinical judgement. 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 -[facility] -Patient does have concerns [...] ED please contact Community Health WorkerBetzy at [phone]. These are guidelines and the provider should exercise clinical judgment when providing care. E.D. VISIT COUNT (12 MO.) 4 [facility] TOTAL 4 NOTE: Visits indicate total known visits. 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 - Type 2 diabetes mellitus with diabetic chronic kidney disease - Allergy status to penicillin - Gout, unspecified - Allergy status to other drugs, medicaments and biological sub - Hypertensive chronic kidney disease with stage 5 chronic kidn - End stage renal disease - 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 08/07/2019 18:49 [facility] [place] TYPE: Emergency COMPLAINT: - ARM BLEED DIAGNOSES: - Hemorrhage due to vascular prosthetic devices, implants and g - Gastro-esophageal reflux disease without esophagitis - Allergy status to penicillin - End stage renal disease - Hypothyroidism, unspecified - Type 2 diabetes mellitus with diabetic chronic kidney disease - Hemorrhage due to vascular prosthetic devices, implants and g - 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
--- NOTE | 2020-01-31 21:22 | EKG ---
[facility] [address] [place] [address] Signed Normal sinus rhythm Prolonged QT Abnormal ECG When compared with ECG of 03-NOV-2018 21:43, (RBBB and left posterior fascicular block) is no longer present Confirmed by ELLE MENDEZ MD ([id number]) on 01/31/2020 9:22:05 PM Electronically Signed By: ELLE MENDEZ MD 01/31/202121 PATIENT NAME: CAROL STANTON Electrocardiogram DATE OF : 61 PHYSICIAN: ELLE MENDEZ MD REPORT #: [id number] REPORT IS CONFIDENTIAL AND NOT TO BE RELEASED WITHOUT AUTHORIZATION
== END 2020-01-31 16:12 | disposition short-term general hospital (02) ==
LOC: ED 10:57
DX: R42 Dizziness and giddiness (principal); E11.22 Type 2 diabetes mellitus with diabetic chronic kidney disease; I12.0 Hypertensive chronic kidney disease with stage 5 chronic kidney disease or end stage renal disease; N18.6 End stage renal disease; Z99.2 Dependence on renal dialysis; K21.9 Gastro-esophageal reflux disease without esophagitis; Z88.8 Allergy status to other drugs, medicaments and biological substances; Z88.0 Allergy status to penicillin; Z79.899 Other long term (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; Z88.1 Allergy status to other antibiotic agents
CPT/HCPCS: 70450; 70496; 70498; 80053; 85025; 85610; 93005; 93010; 99285-25; Q9967

== ENCOUNTER 2020-03-11 11:25 | Emergency (ER) | payer MEDICARE, OTHER ==
[~2020-03-11] VITALS: Ht 170.2 cm; Wt 83.9 kg
--- OUTSIDE RECORDS SUMMARY | ~2020-03-11 | XMS | Encounter Summary ---
Demographics + + + | Address | [address] | | | [place] [address] | + + + | Home Phone | | + + + | Preferred Language | Unknown | + + + | Marital Status | Unknown | + + + | Scientology Affiliation | [id number] | + + + | Race | or | + + + | Ethnic Group | Not or | + + + Author + + + | Author | [facility] | | | and [place] | + + + | Organization | [facility] | | | and [place] | + + + | Address | Unknown | + + + | Phone | Unavailable | + + + Support + + +---------+ + | Name | Relationship | Address | Phone | + + +---------+ + | Shyanne Potter | ECON | Unknown | | + + +---------+ + | Momo Arenas | ECON | Unknown | | + + +---------+ + Care Team Providers + +------+ + | Care Can Sealer Name | Role | Phone | + +------+ + PCP | Unavailable | + +------+ + Encounter Details +--------+ + + + + | Date | Type | Department | Care Team | Description | +--------+ + + + + | 02/20/ | Emergency | [facility] | Trevor Bernal | Neck pain; C6 | | 2015 | | [facility] | DO [address] | cervical fracture, | | | | EMERGENCY CENTER | [address] | closed, initial | | | | [address] | [place], [place] | encounter ([facility]); | | | | [place], [place] | [address] | Bilateral hand pain | | | | [address] | [phone] | | | | | [phone] | | | +--------+ + + + + Social History + +-------+ +--------+------+ | Tobacco Use | Types | Packs/Day | Years | Date | | | | | Used | | + +-------+ +--------+------+ | Never Assessed | | | | | + +-------+ +--------+------+ + + + | Sex Assigned at | Date Recorded | | | | + + + | Not on file | | + + + documented as of this encounter Medications at Time of Discharge + + + +---------+ + + | Medication | Sig | Dispensed | Refills | Start | End Date | | | | | | Date | | + + + +---------+ + + | albuterol (PROAIR | 2 puffs inhaled | | 0 | 03/07/20 | | | HFA) 90 mcg/puff | every 4 hours as | | | 12 | | | inhaler | needed for shortness | | | | | | | of breath | | | | | + + + +---------+ + + | albuterol 90 | Inhale 2 puffs into | | 0 | 05/07/20 | | | mcg/puff inhaler | the lungs every 4 | | | 14 | | | | (four) hours as | | | | | | | needed for Wheezing. | | | | | + + + +---------+ + + | | Use 1 pad to wipe | | 0 | 03/07/20 | | | Benzocaine-Isopropyl | area as directed | | | 12 | | | Alcohol (ALCOHOL | | | | | | | SWABS WITH | | | | | | | BENZOCAINE) 6-70 % | | | | | | | PADS | | | | | | + + + +---------+ + + | ferrous sulfate | 1 tablet by mouth | | 0 | 03/07/20 | | | 325 mg tablet | twice daily with | | | 12 | | | | meals | | | | | + + + +---------+ + + | | Inhale 1 puff into | | 0 | 10/29/19 | | | fluticasone-salmeter | the lungs 2 (two) | | | 14 | | | ol (ADVCOOPER NIELSENELA | times daily. | | | | | | INHUB) 250-50 | | | | | | | mcg/puff diskus | | | | | | | inhaler | | | | | | + + + +---------+ + + | montelukast | Take 1 tablet by | | 0 | 10/29/19 | | | (SINGULAIR) 10 mg | mouth nightly. | | | 14 | | | tablet | | | | | | + + + +---------+ + + | TechLite Lancets | Use as directed by | | 0 | 03/07/20 | | | MISC | physician | | | 12 | | + + + +---------+ + + | allopurinol | 1 tablet by mouth | | 0 | 03/07/20 | | | (ZYLOPRIM) 100 mg | daily for gout. | | | 12 | 0 | | tablet | Increase to 2 | | | | | | | tablets daily after | | | | | | | one week. Increase | | | | | | | to 3 tablets daily | | | | | | | after one more week. | | | | | + + + +---------+ + + | aspirin 81 mg EC | Take 81 mg by mouth | | 0 | 03/07/20 | | | tablet | Daily. | | | 12 | 0 | + + + +---------+ + + | betamethasone | Apply a small amount | | 0 | 03/07/20 | | | valerate (VALISONE) | to scalp once or | | | 12 | 0 | | 0.1 % lotion | twice a day | | | | | + + + +---------+ + + | Blood Glucose | Use as directed by | | 0 | 03/07/20 | | | Monitoring Suppl | physician | | | 12 | 0 | | (CONTOUR BLOOD | | | | | | | GLUCOSE SYSTEM) GORGE | | | | | | + + + +---------+ + + | ergocalciferol | Take 50,000 Units by | | 0 | 03/07/20 | | | (VITAMIN D-2) 50,000 | mouth Once a week. | | | 12 | 0 | | units capsule | | | | | | + + + +---------+ + + | | Inhale 1 puff by | | 0 | 03/07/20 | | | fluticasone-salmeter | mouth twice a day | | | 12 | 0 | | ol (ADVAIR DISKUS) | for asthma; use | | | | | | 100-50 mcg/puff | morning and evening | | | | | | diskus inhaler | every day | | | | | + + + +---------+ + + | hydrophilic | Apply a small amount | | 0 | 03/07/20 | | | ointment | to affected areas | | | 12 | 0 | | | three times a day to | | | | | | | feet as directed. | | | | | | | Apply to ears as | | | | | | | directed. | | | | | + + + +---------+ + + | hydrOXYzine | One tablet by mouth | | 0 | 03/07/20 | | | (ATARAX) 25 MG | every 6 hours if | | | 12 | 0 | | tablet | needed. May cause | | | | | | | drowsiness. | | | | | + + + +---------+ + + | lidocaine | Apply a small amount | | 0 | 03/07/20 | | | (XYLOCAINE JELLY) 2% | to affected area | | | 12 | 0 | | jelly | | | | | | + + + +---------+ + + | metformin | Take 2-1/2 tablets | | 0 | 03/07/20 | | | (GLUCOPHAGE) 1000 MG | by mouth every | | | 12 | 0 | | tablet | evening with food or | | | | | | | milk for diabetes | | | | | + + + +---------+ + + | simvastatin | Take 20 mg by mouth | | 0 | 03/07/20 | | | (ZOCOR) 20 mg tablet | every evening. | | | 12 | 0 | + + + +---------+ + + | telmisartan | Take 40 mg by mouth | | 0 | 03/07/20 | | | (MICARDIS) 40 mg | Daily. | | | 12 | 0 | | tablet | | | | | | + + + +---------+ + + documented as of this encounter ED Notes Huan Martínez MD - 02/20/2015 8:49 AM PDTFormatting of this note might be different f rom the original. ED Provider Notes by Huan Martínez DO at 02/20/1549 Author: Huan Martínez DO Service: (none) Author Type: Physician Filed: 02/27/15 1240 Date of Service: 02/20/1549 Status: Signed Yarn Handler: Huan Martínez DO (Physician) [facility] Department of Emergency Medicine Pertinent History and Concerns: sent from [facility], [facility] C-6 wedge compression fx with re tropulsion, no neuro deficits, Steel on board, wants mri (02/20/15 0313 : Trevor Bernal DO) 8:49 AM 02/20/2015 History of Present Illness Patient Identification Enrique Potter is a 49 y.o. male. Patient information was obtained from patient. History/Exam limitations: none. Patient presented to the Emergency Department by: Ambulance (PCP: [facility] Chief Complaint Chief complaint: Chief Complaint Patient presents with Neck Pain Location: cervical spine Quality: sharp pain Severity: moderate to severe Duration: for one week Timing: constant Modifying factors: worse with movement Care prior to arrival: none reported Associated symptoms: bilateral hand pain Denies: recent illness, CP, SOB, or any other sx at this time Patient reportedly was golfing last week when he twisted and felt immediate pain in his nec k but it was not severe at that time. Today he began having bilateral hand pain that was sev ere. The pt was evaluated at [facility] where the CT scan revealed a C-6 wedge compressio n fracture with retropulsion. Patient transferred here for an MRI. Dr. Merchant, neurosurgeon, is aware of patient. The has a recent travel history of: none The patient has the following new medications: none The patient has no previous encounters for similar chief complaint with no previous diagnos tic imaging and consultations. Past Medical History Diagnosis Date Hyperlipidemia Hypertension Thyroid disease Anemia Abdominal pain, right upper quadrant 04/13/2012 Dialysis patient ([facility]) GI bleed 04/30/2012 from coumadin Walker as ambulation aid Gout Asthma pt not using inhaler any more, no symptoms DVT (deep venous thrombosis) ([facility]) x3 AV fistula ([facility]) lt arm Knee pain, right 07/06/2012 MSSA (methicillin susceptible Staphylococcus aureus) infection 04/11/2012 Anemia due to blood loss 04/30/2012 Amphetamine and other psychostimulant dependence, continuous ([facility]) 04/02/2012 Hyperphosphatemia 05/24/2012 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 Rash and nonspecific skin eruption 04/03/2012 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/01/2012 Neuromuscular disorder ([facility]) neuropathy Hyperkalemia 11/09/2013 Chronic obstructive asthma with exacerbation ([facility]) 10/27/2013 SOB (shortness of breath) 10/27/2013 Diabetes mellitus, type 2 ([facility]) Past Surgical History Procedure Laterality Date Colonoscopy with egd 05/01/2012 Procedure: COLONOSCOPY W/ EGD; Surgeon: John Singleton MD; Location: [facility] ENDOSCOPY; Se rvice: Gastroenterology; Laterality: N/A; Av fistula placement 05/06/2012 Procedure: AV FISTULA; Surgeon: Oskar Meyer MD; Location: [facility] MAIN OR; Service: Vascul ar; Laterality: Left; Left arm possible right Unlisted procedure arthroscopy shoulder rt , ligaments Knee arthroscopy 07/07/2012 Procedure: KNEE - ARTHROSCOPY; Surgeon: Favio Raza MD; Location: [facility] MAIN OR; S ervice: Orthopedics; Laterality: Right; After 1530 Catheter removal 07/07/2012 Procedure: DIALYSIS CATHETER REMOVAL; Surgeon: Oskar Meyer MD; Location: [facility] BEDSIDE [place] OCEDURE; Service: General; Laterality: Right; perm cath Dialysis fistula creation 07/07/2012 Procedure: DIALYSIS CATHETER INSERTION; Surgeon: Oskar Meyer MD; Location: [facility] BEDSIDE PROCEDURE; Service: General; Laterality: Left; temporary dialysis catheter Av fistula repair 07/11/2012 Procedure: AV FISTULA GRAFT REPAIR/REVISION; Surgeon: Oskar Meyer MD; Location: [facility]; Service: Vascular; Laterality: Left; Superficialization of brachiobasilic fistula and right IJ perm cath insertion Dialysis fistula creation 07/11/2012 Procedure: DIALYSIS CATHETER INSERTION; Surgeon: Oskar Meyer MD; Location: [facility] OR; Service: Vascular; Laterality: Left; removed dialysis catheter from left neck and placed new on in left chest, attempted in right neck but unable to place Av fistula placement Right 02/09/2014 Procedure: AV FISTULA; Surgeon: Oskar Meyer MD; Location: [facility] MAIN OR; Service: Vascul ar; Laterality: Right; Superficialization of av fistula Right 03/30/2014 Procedure: AV FISTULA - SUPERFICIALIZATION; Surgeon: Oskar Meyer MD; Location: [facility] OR; Service: Vascular; Laterality: Right; Prior to Admission medications Medication Sig Start Date End Date Taking? Authorizing Provider acetaminophen (TYLENOL) 325 MG tablet Take 650 mg by mouth every 6 (six) hours as needed. I ndications: Pain Yes Historical Provider allopurinol (ZYLOPRIM) 100 MG tablet Take 100 mg by mouth daily. Indications: Primary Gout Yes CLARENCE Earl amLODIPine (NORVASC) 10 MG tablet Take 10 mg by mouth daily. Yes Historical Provider b complex-vitamin c-folic acid (NEPHRO-THU) 0.8 MG TABS Take 1 tablet by mouth daily. Yes Historical Provider carvedilol (COREG) 3.125 MG tablet Take 3.125 mg by mouth 2 (two) times daily with meals. Yes Historical Provider Cholecalciferol 2000 UNITS TABS Take 1 tablet by mouth daily. Yes Historical Provider fluticasone-salmeterol (ADVAIR DISKUS) 250-50 MCG/DOSE Inhale 1 puff into the lungs 2 (two) times daily. 10/28/13 Yes Karri Huff MD furosemide (LASIX) 20 MG tablet Take 20 mg by mouth daily. Yes Historical Provider levothyroxine (SYNTHROID) 75 MCG tablet Take 75 mcg by mouth every morning before breakfast . Indications: Underactive Thyroid Yes CLARENCE Earl loperamide (IMODIUM) 2 MG capsule Take 2 mg by mouth 4 (four) times daily as needed. Ind ications: Diarrhea Yes Historical Provider RENVELA 800 MG tablet take 3 tablets by mouth three times a day WITH MEALS AND 1 TABLET WIT H SNACKS 01/14/14 Yes Juan Timmons MD sodium bicarbonate 650 MG tablet Take 1,300 mg by mouth 2 (two) times daily. Yes Histor ical Provider albuterol (PROVENTIL HFA) 108 (90 BASE) MCG/ACT inhaler Inhale 2 puffs into the lungs every 4 (four) hours as needed for Wheezing. 10/28/13 10/28/14 Karri Huff MD montelukast (SINGULAIR) 10 MG tablet Take 1 tablet by mouth nightly. 10/28/13 10/28/14 Karri Huff MD sevelamer (RENVELA) 800 MG tablet Take 2,400 mg by mouth 3 (three) times daily with meals. 02/20/15 Historical Provider sevelamer (RENVELA) 800 MG tablet Take 800 mg by mouth as needed. With snacks 02/20/15 CLARENCE Morales Allergies Allergen Reactions Lisinopril Other (See Comments) "makes me sweat and knocked me out" Penicillins Other (See Comments) Unknown 10/08/12: Patient tolerated Ceftriaxone during previous admissions. History Social History Marital Status: Spouse Name: Shyanne Number of Children: N/A Years of Education: N/A Occupational History Not on file. Social History Main Topics Smoking status: Former Smoker -- 1.00 packs/day for 23 years Smokeless tobacco: Never Used Alcohol Use: No Drug Use: No Comment: last used marijuana on 04/29/12, quit methaamphetamine in mar 2012 after ARF Sexual Activity: Not on file Other Topics Concern Not on file Social History Narrative , LIVES WITH . HAS NO BIOLOGICAL KIDS; 2 STEP KIDS. CURRENTLY UNEMPLOYED, BEFOR E WORKED AT [employer] IN [place]. Quit METHAMPHETAMINES PER PATIENT after t he ARF in mar 2012. FATHER HAS COLON CANCER, HEART DISEASE, MOTHER 15 YEARS AGO. NO FH KIDNEY PROB LEMS. Family History Problem Relation Age of Onset Heart disease Mother Heart disease Father Diabetes Father Cancer Father colon cancer Review of Systems Constitutional: Negative for fever, chills Eyes: Negative for vision changes Nose: Negative for congestion, nosebleeds Throat: Negative for sore throat CV/Resp: Negative for chest pain, [id number], cough GI: Negative for abdominal pain, nausea, vomiting, or diarrhea : Negative for urinary problems Musculoskeletal: Positive for neck pain and bilateral hand pain Negative for back pain, joint pain Skin: Negative for rash Neuro/Psych: Negative for headache Endo/heme/Lymph: Negative for swollen lymph nodes, easy bruising All other systems reviewed and negative except as noted. Physical Exam BP 131/71 mmHg | Pulse 78 | Temp(Src) 97.1 F (36.2 C) (Oral) | Resp 16 | SpO2 97% Vitals Interpretation: WNL. Pulse Oximetry interpretation: Normal General: Alert, no active distress and not requiring any emergent interventions Eyes: Normal inspection, pupils equal and round, non-icteric sclera ENT: Ears normal Nose normal without discharge or drainage Pharynx normal with no exudates or discharge Neck: In C-collar No carotid bruit with midline trachea Cardiovascular: Normal rate and rhythm, no extra sounds No murmurs rubs or gallops Focal PMI Respiratory: No respiratory distress or wheezing Normal excursion No retractions Abdomen: Soft, non-tender, non-distended Normal active bowel sounds Back: Normal inspection Without tenderness or deformity Skin: Color normal Warm and dry Extremities: BRADY with equal pulses in the upper and lower extremities bilaterally Neuro: 5/5 strength in upper extremities bilaterally symmetrical 2/4 reflexes in brachioradialis and bicep Triceps and upper extremities are 5/4 strength Distally neurovascularly intact Medial radial and ulnar nerves, both motor and sensory are completely intact No gross motor/sensory deficit GCS 15 No cerebellar deficits Alert and oriented to person, place, time and situation Medical Decision Making and Emergency Department Course ED Department Course 8:49 AM. The patient presents with the chief complaint of neck pain. A CT and MRI of the isaak birch's neck has already been done by Dr. Bernal. See results below for details. I will cons ult with Dr. Merchant and reevaluate the patient. 7:32 AM. We resumed patient care from Dr. Bernal. 8:02 AM. Obtained a detailed history from the patient. He was swinging a golf club and hit a rock but continued to follow through and with follow through he felt immediate pain on 01/23 and burning down his hands that lasted for about 15 minutes. The patient states that last night around 11:30 PM he couldn't move his head to the left and then it got cold out and he noticed pain to his hands. After a couple of hours he called an ambulance and went to the ED where he got pain medication. The patient has normal strength and FROM. The patient can mov e his head to the left. The patient never lost control of his bladder or bowel and denies in juries or falls after the initial episode of pain from hitting the golf ball on the . He is completely pain free now. He has had previous neck pain and problems in the past. 8:49 AM. I discussed the patient's case with Dr. Merchant, neurosurgery who states that this is most likely a chronic pain problem and not acute. She does not recommend surgical interve ntion and recommends that the patient follow up with Dr. Botello, neurosurgery and Neurology fr the neuroscience center. The patient will also need to follow up with his PCP this month. 8:51 AM. Patient reevaluation. I discussed Dr. Merchant's recommendations with the patient. I discussed the plan for discharge if the patient does well on the road test and after Tyrone is given to the patient. I advised the patient to follow up with Dr. Botello, ENT and his PCP. I advised the patient to RTER if there are any new or worsening symptoms. The patient unders tands and agrees with the plan. All questions and concerns addressed. MRI and CT reviewed wi th Dr. Merchant. No active symptoms and currently ready for home. NO recent trauma other then as described with golfing the most recent saturday Filed Vitals: 02/20/15 0528 02/20/15 0704 02/20/15 0823 02/20/15 0917 BP: 144/71 135/80 131/71 133/78 Pulse: 79 78 78 79 Temp: 96.9 F (36.1 C) 97.1 F (36.2 C) 97.1 F (36.2 C) TempSrc: Oral Oral Oral Resp: 14 16 16 18 SpO2: 99% 98% 97% 98% Records Reviewed Old ED records reviewed (Using the electronic record system of [facility], Ana whittington reviewed the records with regard to the past medical/surgical history, previous medic ations, and allergies).8:52 AM. Nursing notes reviewed for chief complaint, medications, cli nical presentation and vital signs. Laboratory Evaluation Results None Radiology and EKG Evaluation Imaging Results MRI C-Spine without contrast (Final result) Result time: 02/20/15 08:22:22 Final result by Rad Results In [place] (02/20/15 08:22:22) Impression: IMPRESSION :-Significant prior injury, but on the whole not consistent with significant ne w injury. 1. Stably aligned nonacute fracture complex at the C6-C7 interval with stable but significa nt retropulsion of bone and focal kyphosis. Anatomically stable when compared to the study f rom August 2012 2. The posterior longitudinal ligament is stable but thickened. 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 Poorly defined signal abnormality in the cord, but this is not new from 2012 and is prob ably chronic. No atrophy of the cord or intrinsic cystic change 4. Less edema in the anterior vertebral column at the site of nonacute but significant inju ry Other levels with lesser disease and incidental findings as delineated above Narrative: HISTORY: 49 year-old male with recent trauma. TECHNIQUE: MR of the cervical spine. Prior study for comparison, CT from outside CT from 20 February and the MRI at this institution with described findings, 20 September 2012. FINDINGS: This modality supports and further demarcates what are known findings based upon the outsid e MRI Nonacute highly kyphotic fracture complex at the C6-C7 interval with marked fibrosis. The s uperior endplate of C7 is eroded, and for the most part fused with the special police officer fracture of the anterior inferior aspect of C6. C7 has lost about 60% of its vertebral body height. There is kyphosis and retroflexion of C6 which intrudes posteriorly by about 7.5 mm from th e posterior vertebral body line. This is stable when compared to the imaging from 2013. Retrotranslocation of bone, focal angulation-stable to technique. There is thickening of th e intact posterior longitudinal ligament. With respect to the CT findings there are erosive changes in noncontrast acuity about the a nterior osteophyte. On this examination-there is some edema in the anterior portion of the C 6-C7 fracture complex, but abnormal whole this is less when compared to the examination from 2013. With respect to the aylin, there is stable demyelination within it. With respect to the cord-there is certainly focal impaction of the ventral cord and posttra umatic stenosis of the spinal canal. The canal in the anterior posterior dimension on axial image 99 measures 6 mm. There is poorly defined somewhat broad T2 bright signal abnormality in the cord, not cystic and when compared to prior imaging from 2013-not convincingly progressed. Axial image 102 s eries 102 with axial image 41 series 100 a of the prior exam. No evidence of atrophy of the cord above or below the site of injury. Significant foraminal levels: Some scarring and poorly defined signal at the left lateral margin of the left foramina at C7-T1 Bilateral severe foraminal stenosis at C6-C7, worse on the left. Stable. There are degenerative changes elsewhere, but they are relatively minor Ligaments: there is widening of the posterior interspinous space, there is less edema in th e interspinous ligament when compared to the MRI from 2013. Posterior to the ligament is thi ckened but intact. The anterior longitudinal ligament is not proven intact of the anterior fracture complex, b ut the configuration is stable when compared to the prior examination-likely representing a chronic injury. ED Diagnoses Final diagnoses Neck pain C6 cervical fracture, closed, initial encounter (HCC) kyphosis unchanged and without acute fracture Bilateral hand pain Disposition: ED Disposition Orders Discharge Condition at discharge: Stable Follow-up Information Follow up With Details Comments Contact Info [facility] Emergency Department If symptoms worsen [address] [id number] Barbara Engle MD For follow up [address] [address] [employer] In 2 days For follow up [address] [place] [address] Discharge Medications: Discharge Medication List as of 02/20/2015 9:35 AM START taking these medications Details HYDROcodone-acetaminophen (NORCO) 5-325 MG per tablet Take 1-2 tablets by mouth every 4 (fo ur) hours as needed for Pain., Starting 02/20/2015, Until Sat03/02/15, Print This document has been prepared with a voice recognition system. The possibility of "sound alike" choke setter errors, addition and/or deletions may occur. If there is any question p lease contact the author of the document. Procedures Additional Documentation Procedures Attending Note: Documentation assistance provided by Pavithra Francis (Scribe). Information recorded by the scribe has been reviewed and validated by . Ana post with its contents. DO Huan Hankins DO 02/27/15 1240 onversion Transac tion, Provider Unknown - 02/20/2015 5:37 AM PDTFormatting of this note might be different f rom the original. ED Notes by Petrona Luna RN at 02/20/1537 Author: Petrona Luna RN Service: (none) Author Type: Registered Nurse Filed: 02/20/15536 Date of Service: 02/20/1537 Status: Signed Yarn Handler: Petrona Luna RN (Registered Nurse) Dr. Bernal at bedside Petrona Luna RN 02/20/1537 Trevor Flynn DO - 02/20/2015 5:35 AM PDT ED Provider Notes by Trevor Bernal DO at 02/20/15 0535 Author: Trevor Bernal DO Service: Emergency Department Author Type: Physician Filed: 02/[id number] Date of Service: 02/20/1535 Status: Signed Yarn Handler: Trevor Bernal DO (Physician) [facility] Department of Emergency Medicine Pertinent History and Concerns: [facility] [facility] [place], [facility] C-6 wedge compression fx with re tropulsion, no neuro deficits, Steel on board, wants mri (02/20/15 0313 : Trevor Bernal DO) 5:35 AM History of Present Illness Patient Identification Enrique Potter is a 49 y.o. male. Patient information was obtained from patient and transfer report . History/Exam limitations: none. Patient presented to the Emergency Department by: History of Presenting Illness The patient is a 49 y.o. year old male presenting with Chief Complaint Patient presents with Neck Pain Location- C-spine Onset- x1 week ago Duration- for a week Severity/Character- 08/03 at this time Worse with- movement Better with- nothing Radiation- none Denies- weakness, numbness or tingling. CP, SOB, urinary or bowel incontinence Context- Patient reportedly was golfing last week when he twisted and felt immediate pain i n his neck but it was not severe at that time. Today he began having bilateral hand pain beau t was severe. The pt was evaluated at [facility] where the CT scan revealed a C-6 wedge c ompression fracture with retropulsion. Patient transferred here for an MRI. Dr. Merchant, neur osurgeon, is aware of patient. PCP: [facility] Specialists: Past Medical History Diagnosis Date Hyperlipidemia Hypertension Thyroid disease Anemia Abdominal pain, right upper quadrant 04/13/2012 Dialysis patient ([facility]) GI bleed 04/30/2012 from coumadin Walker as ambulation aid Gout Asthma pt not using inhaler any more, no symptoms DVT (deep venous thrombosis) ([facility]) x3 AV fistula ([facility]) lt arm Knee pain, right 07/06/2012 MSSA (methicillin susceptible Staphylococcus aureus) infection 04/11/2012 Anemia due to blood loss 04/30/2012 Amphetamine and other psychostimulant dependence, continuous ([facility]) 04/02/2012 Hyperphosphatemia 05/24/2012 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 Rash and nonspecific skin eruption 04/03/2012 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/01/2012 Neuromuscular disorder ([facility]) neuropathy Hyperkalemia 11/09/2013 Chronic obstructive asthma with exacerbation ([facility]) 10/27/2013 SOB (shortness of breath) 10/27/2013 Diabetes mellitus, type 2 (HCC) Past Surgical History Procedure Laterality Date Colonoscopy with egd 05/01/2012 Procedure: COLONOSCOPY W/ EGD; Surgeon: John Singleton MD; Location: [facility] ENDOSCOPY; Se rvice: Gastroenterology; Laterality: N/A; Av fistula placement 05/06/2012 Procedure: AV FISTULA; Surgeon: Oskar Meyer MD; Location: [facility] MAIN OR; Service: Vascul ar; Laterality: Left; Left arm possible right Unlisted procedure arthroscopy shoulder rt , ligaments Knee arthroscopy 07/07/2012 Procedure: KNEE - ARTHROSCOPY; Surgeon: Favio Raza MD; Location: [facility] MAIN OR; ervice: Orthopedics; Laterality: Right; After 1530 Catheter removal 07/07/2012 Procedure: DIALYSIS CATHETER REMOVAL; Surgeon: Oskar Meyer MD; Location: [facility] BEDSIDE [place] OCEDURE; Service: General; Laterality: Right; perm cath Dialysis fistula creation 07/07/2012 Procedure: DIALYSIS CATHETER INSERTION; Surgeon: Oskar Meyer MD; Location: [facility] BEDSIDE PROCEDURE; Service: General; Laterality: Left; temporary dialysis catheter Av fistula repair 07/11/2012 Procedure: AV FISTULA GRAFT REPAIR/REVISION; Surgeon: Oskar Meyer MD; Location: [facility]; Service: Vascular; Laterality: Left; Superficialization of brachiobasilic fistula and right IJ perm cath insertion Dialysis fistula creation 07/11/2012 Procedure: DIALYSIS CATHETER INSERTION; Surgeon: Oskar Meyer MD; Location: [facility] OR; Service: Vascular; Laterality: Left; removed dialysis catheter from left neck and placed new on in left chest, attempted in right neck but unable to place Av fistula placement Right 02/09/2014 Procedure: AV FISTULA; Surgeon: Oskar Meyer MD; Location: [facility] MAIN OR; Service: Vascul ar; Laterality: Right; Superficialization of av fistula Right 03/30/2014 Procedure: AV FISTULA - SUPERFICIALIZATION; Surgeon: Oskar Meyer MD; Location: [facility] MAIN OR; Service: Vascular; Laterality: Right; Prior to Admission medications Medication Sig Start Date End Date Taking? Authorizing Provider acetaminophen (TYLENOL) 325 MG tablet Take 650 mg by mouth every 6 (six) hours as needed. I ndications: Pain Yes Historical Provider allopurinol (ZYLOPRIM) 100 MG tablet Take 100 mg by mouth daily. Indications: Primary Gout Yes CLARENCE Earl amLODIPine (NORVASC) 10 MG tablet Take 10 mg by mouth daily. Yes Historical Provider b complex-vitamin c-folic acid (NEPHRO-THU) 0.8 MG TABS Take 1 tablet by mouth daily. Yes Historical Provider carvedilol (COREG) 3.125 MG tablet Take 3.125 mg by mouth 2 (two) times daily with meals. Yes Historical Provider Cholecalciferol 2000 UNITS TABS Take 1 tablet by mouth daily. Yes Historical Provider fluticasone-salmeterol (ADVAIR DISKUS) 250-50 MCG/DOSE Inhale 1 puff into the lungs 2 (two) times daily. 10/28/13 Yes Karri Huff MD furosemide (LASIX) 20 MG tablet Take 20 mg by mouth daily. Yes Historical Provider levothyroxine (SYNTHROID) 75 MCG tablet Take 75 mcg by mouth every morning before breakfast . Indications: Underactive Thyroid Yes CLARENCE Earl loperamide (IMODIUM) 2 MG capsule Take 2 mg by mouth 4 (four) times daily as needed. Ind ications: Diarrhea Yes Historical Provider RENVELA 800 MG tablet take 3 tablets by mouth three times a day WITH MEALS AND 1 TABLET WIT H SNACKS 01/14/14 Yes Juan Timmons MD sodium bicarbonate 650 MG tablet Take 1,300 mg by mouth 2 (two) times daily. Yes Histor ical Provider albuterol (PROVENTIL HFA) 108 (90 BASE) MCG/ACT inhaler Inhale 2 puffs into the lungs every 4 (four) hours as needed for Wheezing. 10/28/13 10/28/14 Karri Huff MD montelukast (SINGULAIR) 10 MG tablet Take 1 tablet by mouth nightly. 10/28/13 10/28/14 Karri Huff MD sevelamer (RENVELA) 800 MG tablet Take 2,400 mg by mouth 3 (three) times daily with meals. 02/20/15 Historical Provider sevelamer (RENVELA) 800 MG tablet Take 800 mg by mouth as needed. With snacks 02/20/15 CLARENCE Morales Allergies Allergen Reactions Lisinopril Other (See Comments) "makes me sweat and knocked me out" Penicillins Other (See Comments) Unknown 10/08/12: Patient tolerated Ceftriaxone during previous admissions. History Social History Marital Status: Spouse Name: Shyanne Number of Children: N/A Years of Education: N/A Occupational History Not on file. Social History Main Topics Smoking status: Former Smoker -- 1.00 packs/day for 23 years Smokeless tobacco: Never Used Alcohol Use: No Drug Use: No Comment: last used marijuana on 04/29/12, quit methaamphetamine in mar 2012 after ARF Sexual Activity: Not on file Other Topics Concern Not on file Social History Narrative , LIVES WITH . HAS NO BIOLOGICAL KIDS; 2 STEP KIDS. CURRENTLY UNEMPLOYED, BEFOR E WORKED AT [employer] IN [place]. Quit METHAMPHETAMINES PER PATIENT after t he ARF in mar 2012. FATHER HAS COLON CANCER, HEART DISEASE, MOTHER 15 YEARS AGO. NO FH KIDNEY PROB LEMS. Family History Problem Relation Age of Onset Heart disease Mother Heart disease Father Diabetes Father Cancer Father colon cancer Review of Systems Constitutional: Negative for fever, chills Eyes: Negative for vision changes Nose: Negative for congestion, nosebleeds Throat: Negative for sore throat CV/Resp: Negative for chest pain, [id number], cough GI: Negative for abdominal pain, nausea, vomiting, or diarrhea : Negative for urinary problems Musculoskeletal: Positive for neck pain (CT diagnosed C6 fracture) and bilateral hand pain (improving) Negative for back pain Skin: Negative for rash Neuro/Psych: Negative for headache Endo/heme/Lymph: Negative for swollen lymph nodes, easy bruising Physical Exam BP 144/71 mmHg | Pulse 79 | Temp(Src) 96.9 F (36.1 C) (Oral) | Resp 14 | SpO2 99% Vital signs interpretation: slightly hypertensive otherwise normal Pulse Oximetry interpretation: Normal General: Alert, in no apparent distress Eyes: Normal inspection, pupils 2 equal and round, non-icteric ENT: Ears normal Nose normal Mildly dry mucous membranes Neck: No C-spine tenderness. No step offs or crepitus. C-collar in place Cardiovasc: Rate and rhythm normal No murmurs Respiratory: Breath sounds normal bilaterally Mild to moderate inspiratory and expiratory wheezing Abdomen: Soft, non-tender, non-distended No guarding or rebound Genitourinary: Deferred Rectal exam: Deferred Back: Normal inspection Extremities: No swelling or redness Skin: Color normal Warm and dry No rash Neuro: Alert, no AMS No gross motor/sensory deficits Moving all extremities Normal motor in bilateral upper and lower extremities. Able to do thumbs up and okay sign with bilateral upper extremities. Able to flex and extend hips and lower extremities. Medical Decision Making and Emergency Department Course ED Department Course 49 y.o. male presents to the ED with a chief complaints of neck pain. [facility] Admitted to having injury in his neck one week ago while twisting. M ain complaint at that time was bilateral hand pain. C-6 compression fx with retropulsion. Se nt here for MRI. Will get MRI and reevaluate the patient. Review of vitals BP 144/71 mmHg | Pulse 79 | Temp(Src) 96.9 F (36.1 C) (Oral) | Resp 14 | SpO2 99% Pt turned over to Dr. Martínez, please see his note for final dispo, awaiting MRI, and he wi ll discuss with neurosurgery. Ddx: I considered msk neck pain, neck fracture, cord compression, ligamentous injury among others in my differential and workup. Pt had mri done, and was dispo'd accordingly. Records Reviewed Old medical records. Nursing notes. Old ED records reviewed (Using the electronic record system of [facility], I car efully reviewed the records with regard to the past medical/surgical history, previous medic ations, and allergies). Laboratory Evaluation Results None I personally reviewed the lab results and they have been posted to the chart. Pertinent po sitive and negative findings have been addressed appropriately and I have discussed any abno rmal labs with the patient. Radiology and EKG Evaluation Imaging Results MRI C-Spine without contrast (Final result) Result time: 02/20/15 08:22:22 Final result by Rad Results In [place] (02/20/15 08:22:22) Impression: IMPRESSION :-Significant prior injury, but on the whole not consistent with significant ne w injury. 1. Stably aligned nonacute fracture complex at the C6-C7 interval with stable but significa nt retropulsion of bone and focal kyphosis. Anatomically stable when compared to the study f rom August 2012 2. The posterior longitudinal ligament is stable but thickened. 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 Poorly defined signal abnormality in the cord, but this is not new from 2013 and is prob ably chronic. No atrophy of the cord or intrinsic cystic change 4. Less edema in the anterior vertebral column at the site of nonacute but significant inju ry Other levels with lesser disease and incidental findings as delineated above Narrative: HISTORY: 49 year-old male with recent trauma. TECHNIQUE: MR of the cervical spine. Prior study for comparison, CT from outside CT from 20 February and the MRI at this institution with described findings, 20 September 2012. FINDINGS: This modality supports and further demarcates what are known findings based upon the outsid e MRI Nonacute highly kyphotic fracture complex at the C6-C7 interval with marked fibrosis. The s uperior endplate of C7 is eroded, and for the most part fused with the special police officer fracture of the anterior inferior aspect of C6. C7 has lost about 60% of its vertebral body height. There is kyphosis and retroflexion of C6 which intrudes posteriorly by about 7.5 mm from th e posterior vertebral body line. This is stable when compared to the imaging from 2013. Retrotranslocation of bone, focal angulation-stable to technique. There is thickening of th e intact posterior longitudinal ligament. With respect to the CT findings there are erosive changes in noncontrast acuity about the a nterior osteophyte. On this examination-there is some edema in the anterior portion of the C 6-C7 fracture complex, but abnormal whole this is less when compared to the examination from 2013. With respect to the aylin, there is stable demyelination within it. With respect to the cord-there is certainly focal impaction of the ventral cord and posttra umatic stenosis of the spinal canal. The canal in the anterior posterior dimension on axial image 99 measures 6 mm. There is poorly defined somewhat broad T2 bright signal abnormality in the cord, not cystic and when compared to prior imaging from 2013-not convincingly progressed. Axial image 102 s eries 102 with axial image 41 series 100 a of the prior exam. No evidence of atrophy of the cord above or below the site of injury. Significant foraminal levels: Some scarring and poorly defined signal at the left lateral margin of the left foramina at C7-T1 Bilateral severe foraminal stenosis at C6-C7, worse on the left. Stable. There are degenerative changes elsewhere, but they are relatively minor Ligaments: there is widening of the posterior interspinous space, there is less edema in th e interspinous ligament when compared to the MRI from 2013. Posterior to the ligament is thi ckened but intact. The anterior longitudinal ligament is not proven intact of the anterior fracture complex, b ut the configuration is stable when compared to the prior examination-likely representing a chronic injury. ED Diagnoses Final diagnoses Neck pain C6 cervical fracture, closed, initial encounter (HCC) Bilateral hand pain Disposition: ED Disposition Orders Discharge Condition at discharge: Stable Follow-up Information Follow up With Details Comments Contact Info [facility] Emergency Department If symptoms worsen [address] [id number] Barbara Engle MD For follow up [address] [place] [facility] [address] [employer] In 2 days For follow up [address] [place] [address] Discharge Medications: Discharge Medication List as of 02/20/2015 9:35 AM START taking these medications Details HYDROcodone-acetaminophen (NORCO) 5-325 MG per tablet Take 1-2 tablets by mouth every 4 (fo ur) hours as needed for Pain., Starting 02/20/2015, Until Sat03/02/15, Print Procedures Additional Documentation Procedures Attending Note: Documentation assistance provided by Lila Garcia (Scribe). Information recorded by the scribe has been reviewed and validated by me. I yojana post with its contents. DO Trevor Lamb DO 02/20/152126 onversion Pate saction, Provider Unknown - 02/20/2015 5:26 AM PDTFormatting of this note might be differen t from the original. ED Notes by Petrona Luna RN at 02/20/15525 Author: Petrona Luna RN Service: (none) Author Type: Registered Nurse Filed: 02/20/1503 Date of Service: 02/20/15525 Status: Addendum Yarn Handler: Petrona Luna RN (Registered Nurse) Related Notes: Original Note by Petrona Luna RN (Registered Nurse) filed at 5 0528 Per EMS: pt golfing and hit a rock on 02/13/15. Developed neck pain and tingling in his hand s last night. Had CT at [facility] showing stable C6 fracture. Had 2 hydrocodone/apap pil ls PO at 0145. Transfer from [facility], here for MRI. Petrona Luna RN 02/20/15527 Petrona Luna RN 02/20/1539 onver quique Transaction, Provider Unknown - 02/20/2015 5:26 AM PDT ED Notes by Hien España RN at 02/20/15525 Author: Hien España RN Service: (none) Author Type: Registered Nurse Filed: 02/20/15525 Date of Service: 02/20/15525 Status: Signed Yarn Handler: Hien España RN (Registered Nurse) Bed: 19 Expected date: Expected time: Means of arrival: Comments: [place] docume nted in this encounter Miscellaneous Notes Plan of Care - Shirley Merchant - 02/20/2015 8:48 AM PDT Plan of Care by Shirley Merchant MD at 02/20/15847 Author: Shirley Merchant MD Service: Neurosurgery Author Type: Physician Filed: 02/20/1555 Date of Service: 02/20/15847 Status: Signed Yarn Handler: Shirley Merchant MD (Physician) The patient's cervical spine CT and MRI do not demonstrate any acute fracture; the C6-7 fra cture region appears chronic. I do not recommend a cervical brace or steroid administration. The patient should F/U with his PCP. He may require F/U with a Neurologist for [facility] EMG/NCS or with a [facility] Neurosurgeon. documented in this en counter Plan of Treatment Not on filedocumented as of this encounter Procedures + +--------+ + + + | Procedure Name | Priori | Date/Time | Associated Diagnosis | Comments | | | ty | | | | + +--------+ + + + | MRI CERVICAL SPINE | Routin | 02/20/2015 | | Results for this | | WO CONTRAST | e | 8:08 AM | | procedure are in the | | | | PDT | | results section. | + +--------+ + + + | CT CERVICAL SPINE WO | Routin | 02/20/2015 | | Results for this | | CONTRAST | e | 5:47 AM | | procedure are in the | | | | PDT | | results section. | + +--------+ + + + documented in this encounter Results MRI Cervical Spine wo Contrast (02/20/2015 8:08 AM PDT) + + | Specimen | + + | | + + + + + | Impressions | Performed At | + + + | IMPRESSION :-Significant prior injury, but on the whole not | | | consistent with significant new injury. 1. Stably aligned nonacute | | | fracture complex at the C6-C7 interval with stable but significant | | | retropulsion of bone and focal kyphosis. Anatomically stable when | | | compared to the study from August 2012 2. The posterior | | | longitudinal ligament is stable but thickened. There is a chronic | | | injury to the anterior longitudinal ligament and interspinous ligament | | | at the C6-C7 level 3. Poorly defined signal abnormality in the | | | cord, but this is not new from 2012 and is probably chronic. No | | | atrophy of the cord or intrinsic cystic change 4. Less edema in | | | the anterior vertebral column at the site of nonacute but significant | | | injury Other levels with lesser disease and incidental findings as | | | delineated above | | + + + + + + | Narrative | Performed At | + + + | HISTORY: 49 year-old male with recent trauma. TECHNIQUE: MR of | | | the cervical spine. Prior study for comparison, CT from outside CT | | | from 20 February and the MRI at this institution with described | | | findings, 20 September 2012. FINDINGS: This modality supports and | | | further demarcates what are known findings based upon the outside MRI | | | Nonacute highly kyphotic fracture complex at the C6-C7 interval | | | with marked fibrosis. The superior endplate of C7 is eroded, and for | | | the most part fused with the special police officer fracture of the anterior | | | inferior aspect of C6. C7 has lost about 60% of its vertebral body | | | height. There is kyphosis and retroflexion of C6 which intrudes | | | posteriorly by about 7.5 mm from the posterior vertebral body line. | | | This is stable when compared to the imaging from 2013. | | | Retrotranslocation of bone, focal angulation-stable to technique. | | | There is thickening of the intact posterior longitudinal ligament. | | | With respect to the CT findings there are erosive changes in | | | noncontrast acuity about the anterior osteophyte. On this | | | examination-there is some edema in the anterior portion of the C6-C7 | | | fracture complex, but abnormal whole this is less when compared to | | | the examination from 2013. With respect to the aylin, there is | | | stable demyelination within it. With respect to the cord-there is | | | certainly focal impaction of the ventral cord and posttraumatic | | | stenosis of the spinal canal. The canal in the anterior posterior | | | dimension on axial image 99 measures 6 mm. There is poorly defined | | | somewhat broad T2 bright signal abnormality in the cord, not cystic | | | and when compared to prior imaging from 2013-not convincingly | | | progressed. Axial image 102 series 102 with axial image 41 series 100 | | | a of the prior exam. No evidence of atrophy of the cord above or | | | below the site of injury. Significant foraminal levels: Some | | | scarring and poorly defined signal at the left lateral margin of the | | | left foramina at C7-T1 Bilateral severe foraminal stenosis at | | | C6-C7, worse on the left. Stable. There are degenerative changes | | | elsewhere, but they are relatively minor Ligaments: there is | | | widening of the posterior interspinous space, there is less edema in | | | the interspinous ligament when compared to the MRI from 2013. | | | Posterior to the ligament is thickened but intact. The anterior | | | longitudinal ligament is not proven intact of the anterior fracture | | | complex, but the configuration is stable when compared to the prior | | | examination-likely representing a chronic injury. | | + + + + + | Procedure Note | + + | [place], Rad Conversion - 02/06/2019 3:01 AM PDT HISTORY: 49 year-old male with recent | | trauma. TECHNIQUE: MR of the cervical spine. Prior study for comparison, CT from outside | | CT from 20 February and the MRI at this institution with described findings, 20 September | | 2012. FINDINGS: This modality supports and further demarcates what are known findings | | based upon the outside MRI Nonacute highly kyphotic fracture complex at the C6-C7 | | interval with marked fibrosis. The superior endplate of C7 is eroded, and for the most | | part fused with the special police officer fracture of the anterior inferior aspect of C6. C7 has | | lost about 60% of its vertebral body height. There is kyphosis and retroflexion of C6 | | which intrudes posteriorly by about 7.5 mm from the posterior vertebral body line. This | | is stable when compared to the imaging from 2013. Retrotranslocation of bone, focal | | angulation-stable to technique. There is thickening of the intact posterior longitudinal | | ligament. With respect to the CT findings there are erosive changes in noncontrast | | acuity about the anterior osteophyte. On this examination-there is some edema in the | | anterior portion of the C6-C7 fracture complex, but abnormal whole this is less when | | compared to the examination from 2013. With respect to the aylin, there is stable | | demyelination within it. With respect to the cord-there is certainly focal impaction of | | the ventral cord and posttraumatic stenosis of the spinal canal. The canal in the | | anterior posterior dimension on axial image 99 measures 6 mm. There is poorly defined | | somewhat broad T2 bright signal abnormality in the cord, not cystic and when compared to | | prior imaging from 2012-not convincingly progressed. Axial image 102 series 102 with | | axial image 41 series 100 a of the prior exam. No evidence of atrophy of the cord above | | or below the site of injury. Significant foraminal levels: Some scarring and poorly | | defined signal at the left lateral margin of the left foramina at C7-T1 Bilateral severe | | foraminal stenosis at C6-C7, worse on the left. Stable. There are degenerative changes | | elsewhere, but they are relatively minor Ligaments: there is widening of the posterior | | interspinous space, there is less edema in the interspinous ligament when compared to | | the MRI from 2012. Posterior to the ligament is thickened but intact. The anterior | | longitudinal ligament is not proven intact of the anterior fracture complex, but the | | configuration is stable when compared to the prior examination-likely representing a | | chronic injury. IMPRESSION: IMPRESSION :-Significant prior injury, but on the whole not | | consistent with significant new injury. 1. Stably aligned nonacute fracture complex at | | the C6-C7 interval with stable but significant retropulsion of bone and focal kyphosis. | | Anatomically stable when compared to the study from August 2012 2. The posterior | | longitudinal ligament is stable but thickened. There is a chronic injury to the anterior | | longitudinal ligament and interspinous ligament at the C6-C7 level 3. Poorly defined | | signal abnormality in the cord, but this is not new from 2012 and is probably chronic. | | No atrophy of the cord or intrinsic cystic change 4. Less edema in the anterior | | vertebral column at the site of nonacute but significant injury Other levels with lesser | | disease and incidental findings as delineated above | |IMPRESSION :-Significant prior injury, but on the whole not consistent with significant new injury. | | | |1. Stably aligned nonacute fracture complex at the C6-C7 interval with stable but significa nt retropulsion of bone and focal kyphosis. Anatomically stable when compared to the study f rom August 2012 | | | |2. The posterior longitudinal ligament is stable but thickened. There is a chronic injury t o the anterior longitudinal ligament and interspinous ligament at the C6-C7 level | | | |3. Poorly defined signal abnormality in the cord, but this is not new from 2012 and is prob ably chronic. No atrophy of the cord or intrinsic cystic change | | | |4. Less edema in the anterior vertebral column at the site of nonacute but significant inju ry | | | |Other levels with lesser disease and incidental findings as delineated above | | | | | + + CT Cervical Spine wo Contrast (02/20/2015 5:47 AM PDT) + + | Specimen | + + | | + + + + + | Narrative | Performed At | + + + | This is a non-reportable procedure without a radiologist report and | | | is used for image storage only | | + + + + + | Procedure Note | + + | Khalif Palm - 02/06/2019 3:01 AM PDT This is a non-reportable procedure | | without a radiologist report and isused for image storage only | + + documented in this encounter Visit Diagnoses + + | Diagnosis | + + | Neck pain Cervicalgia | + + | C6 cervical fracture, closed, initial encounter | + + | Bilateral hand pain Pain in limb | + + documented in this encounter
--- OUTSIDE RECORDS SUMMARY | ~2020-03-11 | XMS | Encounter Summary ---
Demographics + + + | Address | [address] | | | [place] [address] | + + + | Home Phone | | + + + | Preferred Language | Unknown | + + + | Marital Status | Unknown | + + + | Lutheran Affiliation | 1076 | + + + | Race | or | + + + | Ethnic Group | Not or | + + + Author + + + | Author | [facility] | | | and [place] | + + + | Organization | [facility] | | | [...] Team Providers + +------+ + | Care Collections Manager Name | Role | Phone | + +------+ + | Andry Deng DO | PCP | | + +------+ + Encounter Details +--------+ + + + + | Date | Type | Department | Care Team | Description | +--------+ + + + + | 04/05/ | Orders Only | [facility] | Conversion | | | 2013 | | INFECTIOUS DISEASE | Transaction, | | | | | [address] | Provider Unknown | | | | | [place], [place] | | | | | | [address] | (Fax) | | | | | [phone] | | | +--------+ + + + [...] + + documented as of this encounter Plan of Treatment Not on filedocumented as of this encounter Procedures + +--------+ + + + | Procedure Name | Priori | Date/Time | Associated Diagnosis | Comments | | | ty | | | | + +--------+ + + + | CBC WITH MANUAL | Routin | 04/05/2014 | | Results for this | | DIFFERENTIAL | e | 12:00 AM | | procedure are in the | | | | PDT | | results section. | + +--------+ + + + | SEDIMENTATION RATE, | Routin | 04/05/2014 | | Results for this | | AUTOMATED | e | 12:00 AM | | procedure are in the | | | | PDT | | results section. | + +--------+ + + + | C-REACTIVE PROTEIN | Routin | 04/05/2014 | | Results for this | | | e | 12:00 AM | | procedure are in the | | | | PDT | | results section. | + +--------+ + + + documented in this encounter Results Sedimentation rate, automated (04/05/2014 12:00 AM PDT) + +-------+ + + + | Component | Value | Ref Range | Performed | Pathologist | | | | | At | Signature | + +-------+ + + + | Sed Rate | 30 | | EXTERNAL | | | | | | LAB | | + +-------+ + + + + + | Specimen | + + | Blood specimen | | (specimen) | + + + +---------+ + + | Performing | Address | City/State/Zipcode | Phone Number | | Organization | | | | + +---------+ + + | EXTERNAL LAB | | | | + +---------+ + + CBC with Manual Differential (04/05/2014 12:00 AM PDT) + +-------+ + + + | Component | Value | Ref Range | Performed | Pathologist | | | | | At | Signature | + +-------+ + + + | WBC | 6.1 | 10 | EXTERNAL | | | | | | LAB | | + +-------+ + + + | Non- | 3.55 | 10 | EXTERNAL | | | Red Blood | | | LAB | | | Cells | | | | | | Counted | | | | | + +-------+ + + + | Hemoglobin | 10.8 | g/dL | EXTERNAL | | | | | | LAB | | + +-------+ + + + | Hematocrit, | 32.6 | % | EXTERNAL | | | POC | | | LAB | | + +-------+ + + + | MCV | 91.9 | fL | EXTERNAL | | | | | | LAB | | + +-------+ + + + | MCH | 30 | pg | EXTERNAL | | | | | | LAB | | + +-------+ + + + | MCHC | 33 | g/dL | EXTERNAL | | | | | | LAB | | + +-------+ + + + | RDW-CV | 16.4 | % | EXTERNAL | | | | | | LAB | | + +-------+ + + + | Platelet | 223 | K/ L | EXTERNAL | | | Count | | | LAB | | | Plasma | | | | | + +-------+ + + + | MPV | | fL | EXTERNAL | | | | | | LAB | | + +-------+ + + + | % Segmented | 59.5 | % | EXTERNAL | | | | | | LAB | | | Neutrophils | | | | | + +-------+ + + + | % | 19.6 | % | EXTERNAL | | | Lymphocytes | | | LAB | | + +-------+ + + + | % Monocytes | 9.6 | % | EXTERNAL | | | | | | LAB | | + +-------+ + + + | % | 10.4 | % | EXTERNAL | | | Eosinophils | | | LAB | | + +-------+ + + + | % Basophils | 0.9 | % | EXTERNAL | | | | | | LAB | | + +-------+ + + + | Absolute | | / L | EXTERNAL | | | Neutrophils | | | LAB | | + +-------+ + + + | Absolute | | / L | EXTERNAL | | | Lymphocytes | | | LAB | | + +-------+ + + + | Absolute | | / L | EXTERNAL | | | Monocytes | | | LAB | | + +-------+ + + + | Absolute | | / L | EXTERNAL | | | Eosinophils | | | LAB | | + +-------+ + + + | Absolute | | / L | EXTERNAL | | | Basophils | | | LAB | | + +-------+ + + + + + | Specimen | + + | Blood specimen | | (specimen) | + + + +---------+ + + | Performing | Address | City/State/Zipcode | Phone Number | | Organization | | | | + +---------+ + + | EXTERNAL LAB | | | | + +---------+ + + C-Reactive Protein (04/05/2014 12:00 AM PDT) + +-------+ + + + | Component | Value | Ref Range | Performed | Pathologist | | | | | At | Signature | + +-------+ + + + | CRP | 19.7 | mg/dL | EXTERNAL | | | | | | LAB | | + +-------+ + + + + + | Specimen [...] Diagnoses Not on filedocumented in this encounter Additional Health Concerns + + + + + | Infection | Onset Date | Last Indicated | Resolved Time | + + + + + | Methicillin-resistan | 02/18/2017 | 02/18/2017 | | | t Staphylococcus | | | | | aureus | | | | + + + + + documented as of this encounter"
--- OUTSIDE RECORDS SUMMARY | ~2020-03-11 | XMS | Encounter Summary ---
Demographics + + + | Address | [address] | | | [place] [address] | + + + | Home Phone | | + + + | Preferred Language | Unknown | + + + | Marital Status | Single | + + + | Congregation Affiliation | Unknown | + + + | Race | or | + + + | Ethnic Group | Not or | + + + Author + + + | Author | [facility] | + + + | Organization | [facility] | + + + | Address | Unknown | + + + | Phone | Unavailable | + + + Support + + +---------+ + | Name | Relationship | Address | Phone | + + +---------+ + | Cristel Tariq | ECON | Unknown | | + + +---------+ + | Momo Quiroga | ECON | Unknown | | + + +---------+ + Care Team Providers + +------+ + | Care Dynamicist Name | Role | Phone | + +------+ + | Berenice Hicks | PCP | | + +------+ + Reason for Visit + +--------+ + | Reason | Onset | Comments | | | Date | | + +--------+ + | Phone communication | 11/09/ | COVID Clinic Screening questions | | | 2019 | | + +--------+ + Encounter Details +--------+ + + + + | Date | Type | Department | Care Team | Description | +--------+ + + + + | 11/09/ | Telephone | Clinical | Makenna Sheldon, | Phone communication | | 2020 | | Transplant Services | RN [address] | ([facility] | | | | [address] | [address] | Screening questions) | | | | [facility] [place], | [place], [place] | | | | | [place] [address] | [address] | | | | | [phone] | | | +--------+ + + + [...] + + documented as of this encounter Miscellaneous Notes Telephone Encounter - Joanne Jha - 11/10/2019 2:26 PM PDTCalled patient to perform COVI D-19 screening before upcoming clinic visit. Any of the following symptoms within the last 21 days? ? Fever (> 38 C or 100.3 F or subjective fever if no thermometer) ? New cough ? Shortness of breath ? Malaise or flu like symptoms +/- muscle pain None are reported Patient screens negative so clinic visit to proceed as scheduled documented in this encounte r Plan of Treatment +--------+ + + + + | Date | Type | Specialty | Care Team | Description | +--------+ + + + + | 03/22/ | Appointment | Cardiology | | | | 2019 | | | | | +--------+ + + + + | 03/22/ | Appointment | Radiology | Taiwo Marin | | | 2019 | | | MD [facility] [address] | | | | | | [address] | | | | | | [facility] [place] | | | | | | [address] | | | | | | [phone] | | | | | | | | +--------+ + + + + | 03/22/ | Appointment | Cardiology | | | | 2019 | | | | | +--------+ + + + + | 03/22/ | Appointment | Radiology | Taiwo Marin | | | 2019 | | | MD [facility] [address] | | | | | | [address] | | | | | | [place] | | | | | | [address] | | | | | | [phone] | | | | | | | | +--------+ + + + + | 03/23/ | Appointment | Radiology | Taiwo Marin | | | 2019 | | | MD [facility] [address] | | | | | | [address] | | | | | | [place], [place] | | | | | | [address] | | | | | | [phone] | | | | | | | | +--------+ + + + + | 03/23/ | Office | Social Work | Lina Rodriguez, | | | 2019 | Visit | | ENVIRONMENTAL DESIGNER [address] | | | | | | [address] | | | | | | [place], [place] | | | | | | [address] | | | | | | [phone] | | +--------+ + + + + | 03/24/ | Telephone-S | Nutrition | Debby Salvador, | | | 2019 | cheduled | | [address] | | | | | | [address] | | | | | | [place], [place] | | | | | | [address] | | | | | | [phone] | | | | | | | | +--------+ + + + + documented as of this encounter Visit Diagnoses Not on filedocumented in this encounter"
--- OUTSIDE RECORDS SUMMARY | ~2020-03-11 | XMS | Encounter Summary ---
Demographics + + + | Address | [address] | | | [place] [address] | + + + | Home Phone | | + + + | Preferred Language | Unknown | + + + | Marital Status | Unknown | + + + | Caodaism Affiliation | [id number] | + + + | Race | or | + + + | Ethnic Group | Not or | + + + Author + + + | Author | [facility] | | | and [place] | + + + | Organization | [facility] | | | and [place] | + + + | Address | Unknown | + + + | Phone | Unavailable | + + + Support + + +---------+ + | Name | Relationship | Address | Phone | + + +---------+ + | Shyanne Potter | ECON | Unknown | | + + +---------+ + | Momo Dagoberto | ECON | Unknown | | + + +---------+ + Care Team Providers + +------+ + | Care Visual And Stock Associate Name | Role | Phone | + +------+ + | Andry Deng DO | PCP | | + +------+ + Reason for Referral Evaluate & Treat (Routine) + + + + + + + | Status | Reason | Specialty | Diagnoses / | Referred By | Referred To | | | | | Procedures | Contact | Contact | + + + + + + + | Pending | Specialty | Physical | Diagnoses | Ablemona, | | | Review | Services | Therapy | Vertigo | MD Luis | | | | Required | | | [address] | | | | | | | [address] [place] | | | | | | | [place] | | | | | | | [id number] | | | | | | | Phone: | | | | | | | [phone] | | | | | | | Fax: | | | | | | | [phone] | | + + + + + + + Encounter Details +--------+ + + + + | Date | Type | Department | Care Team | Description | +--------+ + + + + | 01/30/ | Hospital | [facility] | Artis Genao MD | Vertigo; End-stage | | 2020 - | Encounter | [facility] | [address] [place] | renal disease on | | | | CARE FLOOR [phone] | [address] [place], [place] | hemodialysis ([facility]); | | 02/01/ | | [address] | [id number] | Diabetes mellitus | | 2020 | | [place], [place] | | type 2 with | | | | [address] | SanjanaJose Antonio dempsey | complications ([facility]); | | | | [phone] | MD Jenifer [address] | Essential | | | | | [address] [place], [place] | hypertension; Anemia | | | | | [id number] | due to chronic | | | | | | kidney disease, on | | | | | Luis Burrell, | chronic dialysis | | | | | [address] | ([facility]) | | | | | [place], [place] | | | | | | [phone] | | | | | | | | +--------+ + + + + Social History + +-------+ +--------+------+ | Tobacco Use | Types | Packs/Day | Years | Date | | | | | Used | | + +-------+ +--------+------+ | Former Smoker | | 1 | | | + +-------+ +--------+------+ + +---+---+---+ | Smokeless Tobacco: | | | | | Never Used | | | | + +---+---+---+ + + | Comments: quit 17 yrs ago | + + + + +---------+ + | Alcohol Use | Drinks/Week | oz/Week | Comments | + + +---------+ + | Not Currently | | | | + + +---------+ + + + + | Sex Assigned at | Date Recorded | | | | + + + | Not on file | | + + + documented as of this encounter Last Filed Vital Signs + + + + + | Vital Sign | Reading | Time Taken | Comments | + + + + + | Blood Pressure | 142/67 | 02/02/2020 11:21 AM | | | | | PDT | | + + + + + | Pulse | 71 | 02/02/2020 11:21 AM | | | | | PDT | | + + + + + | Temperature | 36.4 C (97.5 F) | 02/02/2020 11:21 AM | | | | | PDT | | + + + + + | Respiratory Rate | 18 | 02/02/2020 11:21 AM | | | | | PDT | | + + + + + | Oxygen Saturation | 99% | 02/02/2020 11:21 AM | | | | | PDT | | + + + + + | Inhaled Oxygen | - | - | | | Concentration | | | | + + + + + | Weight | 85.6 kg (188 lb 11.4 | 02/01/2020 1:25 PM | | | | oz) | PDT | | + + + + + | Height | 170.2 cm (5' 7") | 01/31/2020 5:41 PM | | | | | PDT | | + + + + + | Body Mass Index | 29.56 | 01/31/2020 5:41 PM | | | | | PDT | | + + + + + documented in this encounter Functional Status + + + + | Functional Status | Response | Date of Assessment | + + + + | Are you deaf or do you have serious | No | 02/02/2020 | | difficulty hearing? | | | + + + + | Are you blind or do you have serious | No | 02/02/2020 | | difficulty seeing, even when wearing | | | | glasses? | | | + + + + | Do you have serious difficulty walking or | No | 02/02/2020 | | climbing stairs? (5 years old or older) | | | + + + + | Do you have difficulty dressing or bathing? | No | 02/02/2020 | | (5 years old or older) | | | + + + + | Because of a physical, mental, or emotional | No | 02/02/2020 | | condition, do you have difficulty doing | | | | errands alone such as visiting a doctor's | | | | office or shopping? [15 years old or | | | | older)] | | | + + + + + + + + | Cognitive Status | Response | Date of Assessment | + + + + | Because of a physical, mental, or emotional | No | 02/02/2020 | | condition, do you have serious difficulty | | | | concentrating, remembering, or making | | | | decisions? (5 years old or older) | | | + + + + documented as of this encounter Discharge Summaries Luis Burrell MD - 02/02/2020 12:54 PM PDTFormatting of this note might be different fr om the original. Patient: Enrique Potter : 1965 Date of Admission: 01/31/2020 Date of Discharge: 02/02/2020 Treatment Team: Jason Chavira MD Discharging Provider: Luis Burrell MD Discharge Diagnoses: Principal Problem (Resolved): Vertigo Active Problems: HTN (hypertension) HLD (hyperlipidemia) Chronic obstructive asthma Anemia of chronic kidney failure Chronic systolic (congestive) heart failure DM2 (diabetes mellitus, type 2) ESRD (end stage renal disease) on dialysis History of DVT (deep vein thrombosis) Resolved Problems: Weakness generalized Chief Complaint: Vertigo, transfer for higher level of care Hospital Course: Briefly, 54-year-old male with extensive past medical history most significant for partial right eye blindness, essential hypertension, hyperlipidemia, type 2 diabetes mellitus, COPD , 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 The patient was admitted to regular medical floor: 1. Vertigo: -Appears to be likely peripheral etiology of vertigo secondary to either home medications v ersus BPPV, given worsening nature occasionally when head is turned from side to side. No s igns of central vertigo causes. -MRI of the brain was unremarkable for posterior stroke. -The patient was evaluated by physical therapy as an inpatient no Natalie-Hallpike was perfor med. Patient's symptoms continue to improve. -Patient's symptoms continue to demonstrate improvement. -Patient was given ambulatory outpatient PT referral and low-dose meclizine. On the day of discharge, the patient was alert and oriented x3, tolerating p.o. diet withou t symptoms, clinically, hemodynamically from a laboratory perspective stable for discharge w ith outpatient follow-up. Of note on the day of discharge, the patient had near resolution of vertigo symptoms. The patient is to follow-up with primary care provider within 1 week a fter discharge and to follow-up with exam proctor as per recommendations or within 1 to 2 we eks after discharge. Patient is to resume dialysis as per discussion with exam proctor. Am bulatory PT referral provided. Discharge Exam and Data: Vital Signs: BP 142/67 | Pulse 71 | Temp 36.4 C (97.5 F) (Oral) | Resp 18 | Ht 1.702 m (5' 7") | Wt 85.6 kg (188 lb 11.4 oz) | SpO2 99% | BMI 29.56 kg/m Physical Exam Vitals signs and nursing note reviewed. Constitutional: General: He is not in acute distress. HENT: Head: Normocephalic. Eyes: Pupils: Pupils are equal, round, and reactive to light. Neck: Musculoskeletal: Neck supple. Cardiovascular: Rate and Rhythm: Normal rate. Pulses: Normal pulses. Abdominal: General: Bowel sounds are normal. Palpations: Abdomen is soft. Tenderness: There is no guarding or rebound. Skin: General: Skin is warm. Neurological: General: No focal deficit present. Mental Status: He is alert and oriented to person, place, and time. Mental status is at baseline. Recent Labs BMP 135 101 31* 103* 4.1 29 7.00* CaMgPhos 7.8* 3.1* 5.0* LFT 24 84 27 3.4* CBC 5.38 11.1* 169 33.1* Coag 3.2 Last labs from current encounter as of 02/02/20-13:22 PDT Recent Radiology Results Results Reviewed. Discharge Information: Follow up: Andry Deng DO [address] [place] [address] Schedule an appointment as soon as possible for a visit in 1 week Jason Chavira MD [address] [facility] [id number] Schedule an appointment as soon as possible for a visit Current active diet order is: Diet Diet renal; 1500 ml fluid; Effective Now Discharge Medications Changed Medications Details b complex-vitamin c-folic acid tablet Take 1 tablet by mouth daily. What changed: Another medication with the same name was removed. Continue taking this medic ation, and follow the directions you see here. betamethasone valerate 0.1 % cream Apply topically 2 (two) times daily for 7 days. What changed: Another medication with the same name was removed. Continue taking this medic ation, and follow the directions you see here. aka: VALISONE carvedilol 6.25 mg tablet Take 1 tablet by mouth 2 times daily (with breakfast & dinner). What changed: medication strength What Changed: Instructions aka: COREG fluticasone-salmeterol 250-50 mcg/puff diskus inhaler Inhale 1 puff into the lungs 2 (two) times daily. What changed: Another medication with the same name was removed. Continue taking this medic ation, and follow the directions you see here. aka: BEKAH BASS INHUB Unchanged Medications Details acetaminophen 325 mg tablet Take 650 mg by mouth every 6 hours as needed for Pain. aka: TYLENOL ALCOHOL SWABS WITH BENZOCAINE 6-70 % Pads Generic drug: Benzocaine-Isopropyl Alcohol Use 1 pad to wipe area as directed allopurinol 100 mg tablet Take 100 mg by mouth daily. Indications: Primary Gout aka: ZYLOPRIM allopurinol 100 mg tablet 1 tablet by mouth daily for gout. Increase to 2 tablets daily after one week. Increase to 3 tablets daily after one more week. aka: ZYLOPRIM amLODIPine 10 MG tablet Take 10 mg by mouth Daily. aka: NORVASC aspirin 81 mg EC tablet Take 81 mg by mouth Daily. budesonide-formoterol 160-4.5 mcg/puff inhaler Inhale 2 puffs into the lungs 2 (two) times daily. aka: SYMBICORT cholecalciferol 50 mcg (2,000 units) tablet . aka: VITAMIN D-3 CONTOUR BLOOD GLUCOSE SYSTEM Aspen Use as directed by physician ergocalciferol 1.25 mg (50,000 units) capsule Take 50,000 Units by mouth Once a week. aka: VITAMIN D2 ferrous sulfate 325 mg tablet 1 tablet by mouth twice daily with meals HYDROcodone-acetaminophen 5-325 mg per tablet aka: NORCO hydrOXYzine hydrochloride 25 mg tablet One tablet by mouth every 6 hours if needed. May cause drowsiness. aka: ATARAX levothyroxine 75 mcg tablet Take 75 mcg by mouth every morning (before breakfast). aka: SYNTHROID metFORMIN 1000 MG tablet Take 2-1/2 tablets by mouth every evening with food or milk for diabetes aka: GLUCOPHAGE MICARDIS 40 mg tablet Generic drug: telmisartan Take 40 mg by mouth Daily. montelukast 10 mg tablet Take 1 tablet by mouth nightly. aka: SINGULAIR ondansetron 8 mg disintegrating tablet aka: ZOFRAN ODT PROAIR HFA 90 mcg/puff inhaler Generic drug: albuterol 2 puffs inhaled every 4 hours as needed for shortness of breath albuterol 90 mcg/puff inhaler Inhale 2 puffs into the lungs every 4 (four) hours as needed for Wheezing. sevelamer carbonate 800 mg tablet Take 2,400 mg by mouth 3 times daily (with meals). aka: RENVELA simvastatin 20 mg tablet Take 20 mg by mouth every evening. aka: ZOCOR sodium bicarbonate 650 mg tablet Take 1,300 mg by mouth 2 times daily. TECHLITE LANCETS Misc Use as directed by physician warfarin 4 MG tablet Take 5 mg by mouth Daily . aka: COUMADIN Discontinued Medications hydrophilic ointment XYLOCAINE JELLY 2% gel Generic drug: lidocaine . Disposition: home Condition: Stable Code Status: Full Code Discharge took 45 minutes, to include final examination, discussion of admission, and prepa ration of prescriptions, instructions for on-going care, follow-up and documentation of disc harge summary. Luis Burrell MD 1:22 PM PDT 02/02/2020 documented in this e ncounter Discharge Instructions AttachmentsThe following attachments cannot be sent through Care Everywhere.COVID-19 HOME I NSTRUCTIONS FOR AVSdocumented in this encounter Medications at Time of Discharge + + + +---------+ + + | Medication | Sig | Dispensed | Refills | Start | End Date | | | | | | Date | | + + + +---------+ + + | acetaminophen | Take 650 mg by mouth | | 0 | | | | (TYLENOL) 325 mg | every 6 hours as | | | | | | tablet | needed for Pain. | | | | | + + [...] + +---------+ + + | allopurinol | Take 100 mg by mouth | | 0 | | | | (ZYLOPRIM) 100 mg | daily. Indications: | | | | | | tablet | Primary Gout | | | | | + + + +---------+ + + | amLODIPine | Take 10 mg by mouth | | 0 | | | | (NORVASC) 10 MG | Daily. | | | | | | tablet | | | | | | + + + +---------+ + + | b complex-vitamin | Take 1 tablet by | | 0 | 01/25/20 | | | c-folic acid | mouth daily. | | | 17 | | | (NEPHRO-THU) tablet | | | [...] + +---------+ + + | | Inhale 2 puffs into | | 0 | 04/30/20 | | | budesonide-formotero | the lungs 2 (two) | | | 16 | | | l (SYMBICORT) | times daily. | | | | | | 160-4.5 mcg/puff | | | | | | | inhaler | | | | | | + + + +---------+ + + | carvedilol (COREG) | Take 1 tablet by | 60 | 1 | 02/02/20 | | | 6.25 mg tablet | mouth 2 times daily | tablet | | 20 | | | | (with breakfast & | | | | | | | dinner). | | | | | + + + +---------+ + + | cholecalciferol | . | | 0 | | | | (CHOLECALCIFEROL) 50 | | | | | | | mcg (2,000 units) | | | | | | | tablet | | [...] + + +---------+ + + | | | | 0 | 10/04/19 | | | HYDROcodone-acetamin | | | | 17 | | | ophen (NORCO) 5-325 | | | | | | | mg per tablet | | | | | | + + + +---------+ + + | levothyroxine | Take 75 mcg by mouth | | 0 | | | | (SYNTHROID) 75 MCG | every morning | | | | | | tablet | (before breakfast). | | | | | + + + +---------+ + + | meclizine | Take 1 tablet by | 30 | 0 | 02/02/20 | | | (ANTIVERT) 12.5 mg | mouth every 6 hours | tablet | | 20 | | | tablet | as needed for | | | | | | | Dizziness. | | | | | + + + +---------+ + + | montelukast | Take 1 tablet by | | 0 | 10/29/19 | | | (SINGULAIR) 10 mg | mouth nightly. | | | 14 | | | tablet | | | | | | + + + +---------+ + + | ondansetron | | | 0 | 10/04/19 | | | (ZOFRAN ODT) 8 mg | | | | 17 | | | disintegrating | | | | | | | tablet | | | | | | + + + +---------+ + + | sevelamer | Take 2,400 mg by | | 0 | 01/25/20 | | | carbonate (RENVELA) | mouth 3 times daily | | | 17 | | | 800 mg tablet | (with meals). | | | | | + + + +---------+ + + | TechLite Lancets | Use as directed by | | 0 | 03/07/20 | | | MISC | physician | | | 12 | | + + + +---------+ + + | warfarin | Take 5 mg by mouth | | 0 | 10/20/19 | | | (COUMADIN) 4 MG | Daily . | | | 18 | | | tablet | | | | | | + + + +---------+ + + | aspirin 81 mg EC | Take 81 mg by mouth | | 0 | 03/07/20 | | | tablet | Daily. | | | 12 | 0 | + + + +---------+ + + | betamethasone | Apply topically 2 | | 0 | | | | valerate (VALISONE) | (two) times daily | | | | 0 | | 0.1 % cream | for 7 days. | | | | | + + + +---------+ + + | Blood Glucose | Use as directed by | | 0 | 03/07/20 | | | Monitoring Suppl | physician | | | 12 | 0 | | (CONTOUR BLOOD | | | | | | | GLUCOSE SYSTEM) ASPEN | | | | | | + [...] + + + +---------+ + + | sodium bicarbonate | Take 1,300 mg by | | 0 | | | | 650 mg tablet | mouth 2 times daily. | | | | 0 | + + + +---------+ + + | telmisartan | Take 40 mg by mouth | | 0 | 03/07/20 | | | (MICARDIS) 40 mg | Daily. | | | 12 | 0 | | tablet | | | | | | + + + +---------+ + + documented as of this encounter Progress Notes Jason Chavira MD - 02/02/2020 8:39 AM PDT [facility] Nephrology Note Date of Admission: 01/31/2020 The patient is a 54 y.o. male with significant past medical history of End-stage renal disease hemodialysis patient Saturday and Saturday and , chronic sys tolic CHF history diabetes type 2 with complication legal blindness of right eye history of DVT history of superior vena cava syndrome on Coumadin . Patient presented to [facility] with vertigo . His vitals were stable as per stated transfer notes heart rate in 60 systolic blood pressur e 130s to 140s oxygen sats stable patient is afebrile CBC hemoglobin hematocrit baseline sta ble WBC normal CMP no hyperkalemia no acidosis baseline his creatinine LFT was stable EKG no acute ischemic pathology CT of the head no acute pathology INR is 3.5 by record CTA no large vessel occlusion was noted but posterior circulation concern stenosis. He was transferred to [facility] for further imaging with MRI to see any other posterior patholog y involved in tern of central aspect Review of Systems: as above . + VERTIGO BUT NO OTHER SXS. All other review of systems are negative The following portions of the patient's history were reviewed and updated at the time of is dictation as appropriate: allergies, current medications, and problem list. Allergies Allergen Reactions Azithromycin Rash Unknown Lisinopril Other (See Comments) "makes me sweat and knocked me out" Penicillins Other (See Comments) and Rash Rash on fingers and hands Unknown- not sure 10/08/12: Patient tolerated Ceftriaxone during previous admissions. Latex Rash Skin "melted" off Physical Exam Blood pressure 139/65, pulse 70, temperature 36.7 C (98 F), temperature source Oral, re sp. rate 20, height 1.702 m (5' 7"), weight 85.6 kg (188 lb 11.4 oz), SpO2 100 %. Constitutional: pt appears without distress. HENT: Normocephalic and atraumatic. Eyes: No scleral icterus. Neck: No JVD present. Cardiovascular: Normal rate. Exam reveals no gallop and no friction rub. Pulmonary/Chest: No stridor. No respiratory distress. Pt has no wheezes, no rales. Musculoskeletal: pt exhibits no edema in lower extremities Neurological: pt is alert and oriented to person, place, and time. There is no asterixis. No facial asymmetry. Psychiatric: pt has a normal mood and affect. behavior is normal. Judgment and thought cont ent normal. Access; pt has right AVF. It has good thrill and bruit Laboratory Findings Lab Results Component Value Date BUN 31 (H) 02/02/2020 CREA 7.00 (H) 02/02/2020 EGFR 8 (L) 02/02/2020 NA 135 02/02/2020 K 4.1 02/02/2020 CL 101 02/02/2020 CO2 29 02/02/2020 CALCIUM 7.8 (L) 02/02/2020 PHOS 5.0 (H) 02/01/2020 MG 3.1 (H) 02/01/2020 ALBUMIN 3.4 (L) 02/01/2020 WBC 5.38 02/02/2020 HGB 11.1 (L) 02/02/2020 PLT 169 02/02/2020 Lab Results Component Value Date CLARITYUA HAZY 07/24/2017 NITRITEUA NEGATIVE 07/24/2017 BILIRUBINUA NEGATIVE 07/24/2017 GLUCOSEU 50 (A) 07/24/2017 Component Value Date/Time CREA 7.00 (H) 02/02/2020 0530 CREA 10.80 (H) 02/01/2020 0459 LABCREA 6.6 (H) 10/19/2017 0740 LABCREA 8.3 (H) 10/18/2017 0153 LABCREA 6.1 (H) 10/17/2017 0314 LABCREA 8.0 (H) 10/16/2017 0359 LABCREA 6.7 (H) 10/15/2017 0556 LABCREA 9.4 (H) 10/14/2017 0543 LABCREA 7.1 (H) 10/13/2017 0307 LABCREA 9.2 (H) 10/12/2017 0535 LABCREA 7.2 (H) 10/11/2017 0528 LABCREA 7.9 (H) 10/10/2017 0616 LABCREA 10.3 (H) 10/09/2017 0515 LABCREA 9.5 (H) 10/08/2017 0545 MRI brain Brain volume and ventricle size are within normal limits. Focal areas of increased T2 and FLAIR white matter signal. No acute intracranial hemorrhage. No mass or mass effect. No abnormal extra-axial fluid collection. No restricted diffusion. Orbits and extracranial soft tissues appear within normal limits. Paranasal sinus mucosal thickening. Areas of fluid in the right mastoid air cells. Assessment and Plan: ESRD: will plan HD M,W,F - for UF and clearance. reassess volume closely. Access:avf Functioning well Bone-Mineral Disease management: Calcium is controlled keep dietary phos intake at 1000 mg/day. adjust binders with meals and snacks. Anemia management: adjust epo on Dialysis to keep target Hb between 10-12. Electrolytes :ADJUSTED . Pt is at high risk of electrolyte imbalance Magnesium and aluminum containing antacids should be avoided. Magnesium or phosphorus containing laxatives should be avoided. BP control: acceptable Volume status controlled. Diet encurage liberal protein, 1 gm PO4, 2 gm Na, and 2 gm K restricted diet. Dose all of meds to an estimated GFR of less than 10 cc/ min. Jason Chavira MD FACP,FASN 02/02/2020 Milton Amador MD - 02/01/2020 4:27 PM PDTFormatting of this note might be different from rodrigo sierra original. Service: Hospitalist Daily Progress Note Enrique Potter 54 y.o. : 1965 SEX: male PCP: Andry Deng DO Hospital Day: LOS: 1 SUBJECTIVE Patient Summary: Patient is a 54 year old male with past medical history of HTN, HLD, COPD, Anemia, CHF, DM Type 2, Right Eye Blindness, History of DVT, History of Superior Vena Cava Syndrome, S/P Rec annulization on Coumadin for anticoagulation and ESRD on HD (MWF) who was admitted as a duval sfer from [facility] due to Vertigo. His initial labs showed stable CBC while CMP showed mild Hyperkalemia of 5 and elevated BUN/Creatinine of 54/10 consistent with ESRD. EKG showed no acute ischemic pathology while CT Head showed no acute pathology. His INR wa s 3.5. CTA head and neck showed no large vessel occlusion but posterior circulation was conc erning for stenosis. He had multi directional nystagmus and MRI Brain done which showed a fe w focal areas of increased T2 and FLAIR white matter signal which were nonspecific and could be sequela of prior ischemic or inflammatory diseas e. There was no acute ischemia, hemorrhage, mass, or other acute intracranial abnormalities. Nephrology services consulted and Dr. Chavira resumed his scheduled hemodialysis. PT ser vices also involved for evaluation. Events Overnight: Patient seen and examined. Overnight events noted. Patient was seen awake and alert. Patien t reported feeling fair this morning, denied any dizziness, vertigo or headaches. He feels s lightly tired but no nausea, vomiting, chest pain, shortness of breath, cough reported. Feel ing less energetic and fatigued. Also denied abdominal pain, diarrhea or constipation. Appet ite is fair but NPO for now due to hemodialysis. Remained afebrile. Scheduled Medications acetaminophen, 650 mg, Oral, Q4H PRN albuterol, 2 puff, Inhalation, RT Q4H PRN allopurinol, 100 mg, Oral, Daily aspirin, 81 mg, Oral, Nightly atorvaSTATin, 10 mg, Oral, Nightly b complex-vitamin c-folic acid, 1 tablet, Oral, Nightly budesonide-formoterol, 2 puff, Inhalation, RT BID carvedilol, 6.25 mg, Oral, BID WC cholecalciferol, 2,000 Units, Oral, Daily dextrose, 12.5-25 g, Intravenous, PRN And dextrose 10%, , Intravenous, Continuous PRN docusate sodium, 100 mg, Oral, BID PRN ferrous sulfate, 325 mg, Oral, Daily with breakfast hydrOXYzine hydrochloride, 25 mg, Oral, Q6H PRN insulin lispro, 0-12 Units, Subcutaneous, 4x Daily WC and HS levothyroxine, 75 mcg, Oral, QAM AC montelukast, 10 mg, Oral, Nightly ondansetron, 4 mg, Oral, Q6H PRN ondansetron, 4 mg, Intravenous, Q6H PRN senna, 8.6 mg, Oral, BID PRN sevelamer carbonate, 2,400 mg, Oral, TID WC sodium bicarbonate, 1,300 mg, Oral, BID warfarin per pharmacy, , Other, Pharmacy Consult Continuous Infusions . PRN Medications Current Facilty-Administered PRN Medications Ordered in [facility] Medication Dose Route Frequency Provider Last Rate Last Dose acetaminophen (TYLENOL) tablet 650 mg 650 mg Oral Q4H PRN Artis Genao MD albuterol 90 mcg/puff inhaler 2 puff 2 puff Inhalation RT Q4H PRN Artis Genao MD dextrose 50% injection 12.5-25 g 12.5-25 g Intravenous PRN Artis Genao MD And dextrose 10% (D10W) infusion Intravenous Continuous PRN Artis Genao MD docusate sodium (COLACE) capsule 100 mg 100 mg Oral BID PRN Artis Gneao MD hydrOXYzine hydrochloride (ATARAX) tablet 25 mg 25 mg Oral Q6H PRN Artis Genao MD ondansetron (ZOFRAN ODT) disintegrating tablet 4 mg 4 mg Oral Q6H PRN Artis Genao MD ondansetron (ZOFRAN) injection 4 mg 4 mg Intravenous Q6H PRN Artis Genao MD senna (SENOKOT) tablet 8.6 mg 8.6 mg Oral BID PRN Artis Genao MD Allergy: Allergies Allergen Reactions Azithromycin Rash Unknown Lisinopril Other (See Comments) "makes me sweat and knocked me out" Penicillins Other (See Comments) and Rash Rash on fingers and hands Unknown- not sure 10/08/12: Patient tolerated Ceftriaxone during previous admissions. Latex Rash Skin "melted" off OBJECTIVE Vital Signs: Vitals: 02/01/20 1634 BP: 127/60 Pulse: 65 Resp: 16 Temp: 36.5 C (97.7 F) Intake/Output Summary (Last 24 hours) at 02/01/2020 1653 Last data filed at 02/01/2020 1325 Gross per 24 hour Intake 850 ml Output 2600 ml Net -1750 ml Examination: Constitutional: Patient is alert and oriented x 3. Appears weak but not in acute distress. HEENT: Head: Normocephalic and Atraumatic. Nose: Nose normal. Mouth/Throat: Oropharynx is clear and moist. Eyes: No conjunctiva injection. EOM Intact. Reactive to light on left. No scleral icterus. + Cataract Right Eye and Blindness. Neck: Neck supple. No JVD present. No tracheal deviation present. No thyromegaly Cardiovascular: Regular rate and rhythm, no murmur heard and no friction rub. Pulmonary/Chest: Clear to auscultation, no wheezes, rales and crackles. Abdominal: Soft, BS present, no distension, no ascites. No rebound tenderness and no guardi ng. Musculoskeletal: Moves all limbs, + Weakness, + Mild difficulty in walking and no joint te nderness. No pedal edema. Neurological: + Weakness, No Focal neurologic deficits, No CN deficits. Skin: Skin is warm and dry. No ecchymoses, or abrasions. Psychiatric: No Confusion, No agitation, Reactive affect and Judgement is stable. LABS: Recent Results (from the past 24 hour(s)) POC Glucose Result Value Ref Range Glucose, POC 150 (H) 65 - 99 mg/dL Magnesium Result Value Ref Range Magnesium 3.1 (H) 1.7 - 2.4 mg/dL Comprehensive Metabolic Panel Result Value Ref Range Na 134 (L) 135 - 145 mmol/L K 5.0 (H) 3.5 - 4.9 mmol/L Cl 99 99 - 109 mmol/L CO2 26 23 - 32 mmol/L Anion Gap 14 5 - 20 mmol/L Glucose 79 65 - 99 mg/dL BUN 54 (H) 8 - 25 mg/dL Creatinine 10.80 (H) 0.70 - 1.30 mg/dL BUN/Creatinine Ratio 5 Calcium 7.8 (L) 8.5 - 10.5 mg/dL Protein, Total 7.4 6.3 - 8.2 g/dL Albumin 3.4 (L) 3.6 - 5.0 g/dL Globulin 4.0 1.3 - 4.9 g/dL A/G Ratio 0.9 (L) 1.0 - 2.4 BILIRUBIN, TOTAL 0.8 0.1 - 1.5 mg/dL ALK PHOS 84 35 - 115 U/L AST 24 10 - 45 U/L ALT 27 10 - 65 U/L Estimated GFR 5 (L) >60 mL/min/1.73m2 CBC with Differential Result Value Ref Range WBC 5.66 3.80 - 11.00 K/uL Red Blood Cells 3.65 (L) 4.20 - 5.70 M/uL Hemoglobin 11.0 (L) 13.2 - 17.0 g/dL Hematocrit 32.6 (L) 39.0 - 50.0 % MCV 89.3 80.0 - 100.0 fl MCH 30.1 27.0 - 34.0 pg MCHC 33.7 32.0 - 35.5 g/dL RDW-SD 47.7 37 - 53 fl Platelet Count 177 150 - 400 K/uL MPV 9.4 fl Diff Type AUTOMATED % nRBC 0.0 0 /100WBC % Neutrophils 67.60 % IMMATURE GRANULOCYTE 0.20 % % Lymphocytes 14.80 % Monocyte % 7.20 % Eosinophils % 9.70 % Basophils % 0.50 % Neutrophils, Absolute 3.82 1.90 - 7.40 K/uL IMMATURE GRANS AB 0.01 0.00 - 0.07 K/uL Absolute Lymphocytes 0.84 (L) 1.00 - 3.90 K/uL Absolute Monocytes 0.41 0.00 - 0.80 K/uL Eosinophils, Absolute 0.55 (H) 0.00 - 0.50 K/uL Basophils, Absolute 0.03 0.00 - 0.10 K/uL Phosphorus Result Value Ref Range Phosphorus 5.0 (H) 2.3 - 4.8 mg/dL Protime INR Result Value Ref Range INR 3.2 POC Glucose Result Value Ref Range Glucose, POC 85 65 - 99 mg/dL PROBLEM LIST Principal Problem: Vertigo Active Problems: ESRD (end stage renal disease) on dialysis HTN (hypertension) Chronic obstructive asthma Anemia of chronic kidney failure Chronic systolic (congestive) heart failure DM2 (diabetes mellitus, type 2) History of DVT (deep vein thrombosis) HLD (hyperlipidemia) Weakness generalized ASSESSMENT & PLAN Vertigo: Etiology uncertain, possibly due to medication effect and low blood pressure. Work -up so far with CTA head and neck and MRI brain negative for acute stroke or hemorrhages. Cl inically stable and improving, will monitor hemodynamics and adjust medications as needed. End Stage Renal Disease on Hemodialysis: Chronic, Dr. Chavira is consulted from Nephrolog y services and managing his scheduled dialysis. Will avoid nephrotoxins and monitor BMP. Chronic Obstructive Pulmonary Disease: Stable and without signs of acute exacerbation, emily l continue Symbicort BID and give Albuterol Inhalers and Neb treatments at needed. Chronic Systolic Congestive Heart Failure: Stable at present, there was no signs of acute exacerbation and does not seems to be in volume loaded state. Will continue Coreg 6.25 mg BI D, resume Hemodialysis as scheduled and monitor closely. Diabetes Mellitus Type 2 with Other Manifestation: Blood sugars are stable but on low elsie l limits, will monitor accu checks and give Humalog Insulin per SS and monitor for hypoglyce titi. Anemia of Chronic Kidney Disease: H&H is stable at 11, will continue oral Iron 325 mg daily and monitor CBC daily. Hypertension: BP has been soft and in low normal range, will continue Coreg 6.25 mg BID and hold Amlodipine for now and monitor hemodynamics. History of DVT: Chronic and stable, currently on Coumadin with therapeutic INR of 3.2. Emily l continue Coumadin per pharmacy and monitor INR periodically. Hyperlipidemia: Chronic, will continue statins at home dose and no changes recommended at t his time. Generalized Weakness / Debility: Multifactorial, secondary to vertigo, ESRD and decondition ing. Will involve PT services and follow their recommendations. DVT prophylaxis with SCD's and Coumadin. Discharge plans in 1 to 2 days if remains stable and improved. Jose Antonio Allan MD 02/01/2020 ham, Makenzie Burgess , PharmD - 02/01/2020 3:45 PM PDTFormatting of this note might be different from the origin al. Warfarin Dosing Per Pharmacy Enrique Potter male 54 y.o. admitted 01/30 for vertigo c/f posterior circulation pathology. INDICATION: History of DVT/PE and superior vena cava syndrome GOAL INR: 2-3 HOME REGIMEN: 4.25 mg daily (per [facility] pharmacy; verified with pharmacist on ) OTHER ANTICOAGULATION: none DRUG INTERACTIONS: ASA may increase bleed risk PATIENT DIET: renal BLEED RISK: none Recent Labs Lab 02/01/20 0459 HGB 11.0* HCT 32.6* PLT 177 INR 3.2 DATE 01/31 01/30 INR 3.2 3.5 Warfarin Dose ? INR 3.[address] [facility] records. 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 Likely able to resume home regimen tomorrow. Plan: Warfarin HOLD today INR in am Pharmacy will continue to follow and modify therapy as indicated. Makenzie Leong PharmD, [facility] [phone] (available [phone]) 02/01/2020 3:32 PM PDT unez, Carmina Argueta RN - 02/01/2020 3:40 PM PDTCare Management Initial Assessment Readmission Risk: Medium Status Prior to Admission or Illness Arrival From: home Lives With: spouse Living Arrangements: house Caregiver For: no one Patient s Caregiver: self Functional Status: independent Caregiving Concerns: no Home Accessibility: no concerns Transportation Available: family or friend will provideor transportation solutions Able to return to prior living: yes Care Management Concerns Last discharge date: n/a Readmission Within Last 30 Days: no previous admission in last 30 days Is Readmission Diagnosis Related to or Same As: Previous Discharging Facility: Previous Discharge Destination From: PCP: Andry Deng DO Contact Information Family Contact Information: Shyanne Potter spouse Name: Phone: Pager: Fax: DC Needs Assessment Current Outpt/Agency/Support Groups: [facility] M/W/F Community Agency Name: dialysis at [facility] Anticipated Changes Related to Illness: none Concerns to be Addressed: no discharge needs identified Services Anticipated at Discharge: none Equipment Used at Home: none Equipment Needed after Discharge: none Durable Medical Equipment Provider: Pharmacy/Medication Needs: Transportation Needs: son Initial Plan Anticipated Discharge Disposition: home Expected DC Date: Steps Taken Toward Discharge: Next Steps: Notes: Met with patient at bedside to discuss discharge plan and needs. Introduced myself a nd explained my role in discharge planning. Pt lives with spouse in [place] and goes to dialysis M/W/F. Pt is trying to get a kidney transplant. Pt uses transportation solutions for a ride to and from dialysis. Pt is independent with adls and mobility. Electronically signed: Carmina Self RN 02/01/2020 3:40 PM PDT racy Jha PT - 02/01/2020 10:05 AM PDTMISSED THERAPY VISIT Physical Therapy attempted to see the following patient today: Enrique Potter (P) Missed Visit (patient unavailable) (P) Pt admit for poor gait stability with vertigo and multidirectional nysagmus, possibly r esolved per notes. Pt currently on HD for next 3-4hrs, f/u as census permits for mobility e michelle. Maude Gonzalez RP - 01/31/2020 10:32 PM PDT Pharmacy Warfarin Monitoring: Pharmacy consulted to dose warfarin per: Dr. Genao INDICATION: History of DVT/PE and superior vena cava syndrome GOAL: 2-3 OTHER ANTICOAGULATION: n/a DRUG INTERACTIONS: none PATIENT DIET: renal diet, no documentation of intake yet HOME DOSE: patient is a poor historian per Dr. Genao- patient states he takes 5 mg daily, ho wever, has fill history for 2.5 and 3 mg tablets DATE 01/30 INR 3.5 per [facility] records Warfarin Dose Unknown if took [employer]LE TECHNICAL DEVELOPER Assessment: The INR is Above the target range of 2-3 Unsure if patient took a dose today prior to admission Plan: HOLD warfarin dose today as INR is above goal INR in am Pharmacy will continue to follow and modify therapy as indication. Maude Velazquez, PharmD, BCCCP documented in t his encounter H&P Notes Artis Genao MD - 01/31/2020 3:52 PM PDTFormatting of this note might be different from th e original. [facility] Service: Hospitalist History and Physical Date of Admission: January 31, 2020 Requesting Physician: Emergency Department from [facility] Reason for Admission: Patient presented to [facility] with vertigo concern posterior circulation pathology to have imaging MRI evaluation for further care plan transfer from [facility] CHIEF COMPLAINT: Wake up this a.m. with vertigo hard to get up from bed because of vertigo no nausea vomiting no short of breath or chest pain HISTORY OF PRESENT ILLNESS The patient is a 54 y.o. 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 and no minute he was treated in 2018 recannulization by vascular and an gioplasty he is on Coumadin since history of amphetamine and other psychostimulant drug use Hypertension hyperlipidemia history of gout Came in to [facility] with vertigo by ER evaluation report patient does not have no n euro focality just vertigo precipitated by any movement gait was not tested for ataxia and s ent and 20 His vitals were stable as per stated transfer notes heart rate in 60 systolic blood pressur e 130s to 140s oxygen sats stable patient is afebrile CBC hemoglobin hematocrit baseline sta ble WBC normal CMP no hyperkalemia no acidosis baseline his creatinine LFT was stable EKG no acute ischemic pathology CT of the head no acute pathology INR is 3.5 by record CTA no large vessel occlusion was noted but posterior circulation concern stenosis P2 ER ph ysician consulted [facility] transfer with hospitalist team on At the same time with neurology Dr. Garay patient have by ER physician evaluation multi direc tional nystagmus so patient requested to be transferred to [facility] for further imaging with MRI to see any other posterior pathology involved in tern of central aspect patient denies hearing change or loss no tinnitus no dysarthria no slurred speech no diplopia no dysphagia As they can do MRI today there For end-stage renal disease poppers no immediate indication for hemodialysis at that time REVIEW OF SYSTEMS 12 point ROS reviewed and negative other than above Past Medical History: Diagnosis Date Abdominal pain, right upper quadrant 04/13/2012 Amphetamine and other psychostimulant dependence, continuous 04/02/2012 Anemia Anemia due to blood loss 04/30/2012 Asthma pt not using inhaler any more, no symptoms AV fistula (HCC) lt arm 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 Chronic obstructive asthma with exacerbation (HCC) 10/27/2013 Chronic systolic heart failure (HCC) 09/10/2016 Diabetes mellitus type I (HCC) Dialysis patient (HCC) DVT (deep venous thrombosis) ([facility]) x3 GI bleed 04/30/2012 from coumadin Gout Hyperkalemia 11/09/2013 Hyperlipidemia Hyperphosphatemia 05/24/2012 Hypertension Hyponatremia 09/08/2016 Knee pain, right 07/06/2012 MSSA (methicillin susceptible Staphylococcus aureus) infection 04/11/2012 Neuromuscular disorder (HCC) neuropathy 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 brand right IJ perm cath insertion CATHETER REMOVAL Right 07/07/2012 Procedure: DIALYSIS CATHETER - REMOVAL; Surgeon: Oskar Meyer MD; Location: [facility] BED[facility]IDE P ROCEDURE; Service: General; Laterality: Right; perm cath DIALYSIS FISTULA CREATION Left 07/11/2012 Procedure: DIALYSIS CATHETER - INSERTION; Surgeon: Oskar Meyer MD; Location: [facility] OR ; Service: Vascular; Laterality: Left; removed dialysis catheter from left neck and place d new on in left chest, attempted in right neck but unable to place DIALYSIS FISTULA CREATION Left 07/07/2012 Procedure: DIALYSIS CATHETER - INSERTION; Surgeon: Oskar Meyer MD; Location: [facility] BEDSIDE PROCEDURE; Service: General; Laterality: Left; temporary dialysis catheter KNEE ARTHROSCOPY Right 07/07/2012 Procedure: KNEE - ARTHROSCOPY; Surgeon: Favio Raza MD; Location: [facility] OR; rvice: Orthopedics; Laterality: Right; After 1530 OTHER SURGICAL HISTORY UNLISTED PROCEDURE ARTHROSCOPY - shoulder rt , ligaments OTHER SURGICAL HISTORY Right 03/30/2014 SUPERFICIALIZATION OF AV FISTULA - Procedure: AV FISTULA - SUPERFICIALIZATION; Surgeon: Onelia Meyer MD; Location: [facility] OR; Service: Vascular; Laterality: Right; OTHER SURGICAL HISTORY Right 02/09/2014 AV FISTULA PLACEMENT - Procedure: AV FISTULA; Surgeon: Oskar Meyer MD; Location: [facility]; Service: Vascular; Laterality: Right; OTHER SURGICAL HISTORY Left 05/06/2012 AV FISTULA PLACEMENT - Procedure: AV FISTULA; Surgeon: Oskar Meyer MD; Location: [facility]; Service: Vascular; Laterality: Left; Left arm possible right OTHER SURGICAL HISTORY 05/01/2012 COLONOSCOPY WITH EGD - Procedure: COLONOSCOPY W/ EGD; Surgeon: John Singleton MD; Locatio n: [facility] ENDOSCOPY; Service: Gastroenterology; Laterality: N/A; OTHER SURGICAL HISTORY 10/12/2017 HEMODIALYSIS INPATIENT - Allergies Allergen Reactions Azithromycin Rash Unknown Lisinopril Other (See Comments) "makes me sweat and knocked me out" Penicillins Other (See Comments) and Rash Rash on fingers and hands Unknown- not sure 10/08/12: Patient tolerated Ceftriaxone during previous admissions. Latex Rash Skin "melted" off No medications prior to admission. Family History Problem Relation Age of Onset Heart disease Mother Heart disease Father Diabetes Father Cancer Father colon cancer Social History Tobacco Use Smoking Status Former Smoker Packs/day: 1.00 Tobacco Comment quit 17 yrs ago Social History Substance and Sexual Activity Alcohol Use Not on file Social History Substance and Sexual Activity Drug Use Not on file Comment: Drug use: Yes PHYSICAL EXAM Vital Signs: General Appearance: No apparent distress. Conversive and appropriate to place and person. HEENT: Normocephalic, atraumatic, pupils EOMI, PERRLA. Left side right cornea past trauma poor vision on that side as chronic baseline nose: no septal deviation or discharge. Ears: n ormal size, location, and contour. Throat: no exudates, dry. No tinnitus no hearing loss NECK: is supple, full ROM, nontender. LUNGS: clear to auscultation bilaterally with no wheezing, No rales or rhonchi audible. HEART: S1S2, Regular rate and rhythm without murmurs, gallops or rubs. ABDOMEN: Bowel sound is normoactive, abdomen is soft, non-tender non-distended ,no mass pal pable. EXTREMITIES:No lower extermity edema, No clubbing or cyanosis bilaterally NEURO: Cranial Nerves 2-12 appears intact, I did not elicit any ataxia when he walking a fe w steps, somewhat little bit lightheadedness and unsteady apart from that no ataxia muscle s trength appears equal bilaterally, Sensation grossly intact. Vertigo elicited by lateral rotation of his head but not with flexion extension of the head -I did not appreciate any nystagmus at that time of exam dysarthria speech is normal no pronator drift no facial droop PSYCH: Alert, awake and Oriented x3. SKIN: No bruises, rashes, lesions, or ulcers of significant extent. DATA CBC: Lab Results Component Value Date WBC 7.12 10/19/2017 HGB 9.3 (L) 10/19/2017 MCV 88.7 10/19/2017 MCH 28.3 10/19/2017 MCHC 31.9 (L) 10/19/2017 MPV 7.8 10/19/2017 CMP: Lab Results Component Value Date NA 133 (L) 10/19/2017 K 4.9 11/12/2018 CL 96 (L) 10/19/2017 CO2 26 10/19/2017 ANIONGAP 16 10/19/2017 GLUF 167 (H) 10/19/2017 BUN 29 (H) 10/19/2017 GLOB 4.6 10/19/2017 AGRATIO 0.6 (L) 10/19/2017 BILITOT 0.6 10/19/2017 AST 27 10/19/2017 ALT 19 10/19/2017 EGFR 9 (L) 10/19/2017 BMP: Lab Results Component Value Date NA 133 (L) 10/19/2017 K 4.9 11/12/2018 CL 96 (L) 10/19/2017 CO2 26 10/19/2017 ANIONGAP 16 10/19/2017 GLUF 167 (H) 10/19/2017 BUN 29 (H) 10/19/2017 EGFR 9 (L) 10/19/2017 Hepatic Function Panel: Lab Results Component Value Date BILITOT 0.6 10/19/2017 AST 27 10/19/2017 ALT 19 10/19/2017 Magnesium: Lab Results Component Value Date MG 2.3 10/19/2017 Phosphorus: No results found for: PHOS PT/INR: Lab Results Component Value Date PROTIME SPECIMEN CLOTTED, SAMPLE TO BE REDRAWN 10/08/2016 INR 2.2 10/19/2017 PTT: No results found for: APTT[APTT HgbA1c: No components found for: HGBA1C Active Problems: Vertigo-gait instability Existing End-stage renal disease on hemodialysis Saturday Hypertension Hyperlipidemia Diabetes type 2 with complication History of drug use History of chronic systolic CHF COPD asthma History of DVT history of superior vena cava syndrome s/p angioplasty right subclavian and innominate on Coumadin History of hypothyroidism ASSESSMENT AND PLAN: Vertigo-gait instability Admit as inpatient Patient does not have no neuro focality associated no tinnitus no hearing loss no diplopia no dysarthria no dysphagia no focal weakness no ataxia no nystagmus on my exam Differential can be peripheral vertigo but with vascular risk factor consider an CTA findin g to evaluate further Will have MRI of the brain Report review CT of the head was negative CTA stated as above no large vessel occlusion pos terior circulation concern to area follow-up MRI of the brain Further care plan will be dependent on MRI finding Neurology was consulted before admission where follow-up further recommendation if MRI is p ositive If MRI is negative will be more peripheral nature of vertigo In this case physical therapy will be requested for evaluation safety concern with fall cau tions Patient already on Coumadin INR today 3.5 requested pharmacy Coumadin dosing Other risk factor review diabetes type 2 hyperlipidemia hypertension review End-stage renal disease on hemodialysis Saturday Nephrology already aware of admission no need any urgent indication for dialysis monitor tr end of electrolytes resume renal meds Hypertension resume home meds carvedilol monitor blood pressure adjust as needed Hyperlipidemia he is on statin Continue with a lot of vasculopathy underlying lipid pane l sent out Diabetes type 2 with complication SSI with meal for now blood sugar monitor adjust as neede d History of drug use educate cessation History of chronic systolic CHF no acute decompensation COPD asthma no acute decompensation resume home inhaler also on singular History of DVT history of superior vena cava syndrome s/p angioplasty right subclavian and innominate on Coumadin Requested pharmacy Coumadin dosing Hypothyroidism resume levothyroxine home dose Hospital records reviewed. Labs and radiologic studies and reports reviewed. Discussed find ings with patient and patient family and also explaining what will be the care plan Old records reviewed on EMR. Dictation software, Medpre[employer], used which may contain error for similar sounding words even af ter review. Personal communication requested for any clarification. Disposition: inpatient Code Status: FULL CODE Primary Care Physician: DO Artis Harley MD 01/31/2020 MRI result - reviewed There are a few focal areas of increased T2 and FLAIR white matter signal which are nonspecific and could be sequela of prior ischemic or inflammatory disease. No acute ischemia, hemorrhage, mass, or other acute intracranial abnormality is identifiedElectronically signed by Artis Genao MD at 02/2020 8:32 PM PDTdocumented in this encounter Procedure Notes Jason Chavira MD - 02/01/2020 9:45 AM PDTAssociated Order(s): HEMODIALYSIS [facility] Hemo-Dialysis Procedure note Pt is seen on Dialysis. Indication for Dialysis: ESRD for Clearance and UF Review of Systems: on dialysis , there is no reported nausea, vomiting, dyspnea, chest pa in, dizziness or headache. Laboratory Findings Lab Results Component Value Date BUN 54 (H) 02/01/2020 CREA 10.80 (H) 02/01/2020 EGFR 5 (L) 02/01/2020 NA 134 (L) 02/01/2020 K 5.0 (H) 02/01/2020 CL 99 02/01/2020 CO2 26 02/01/2020 CALCIUM 7.8 (L) 02/01/2020 PHOS 5.0 (H) 02/01/2020 MG 3.1 (H) 02/01/2020 ALBUMIN 3.4 (L) 02/01/2020 WBC 5.66 02/01/2020 HGB 11.0 (L) 02/01/2020 PLT 177 02/01/2020 Physical Exam Blood pressure 132/61, pulse 67, temperature 36.4 C (97.6 F), temperature source Oral, resp. rate 16, height 1.702 m (5' 7"), weight 85 kg (187 lb 6.3 oz), SpO2 99 %. QB 500 qd 600 AP -200 Guillotine Trimmer 180 Constitutional: pt appears without distress. Cardiovascular: Normal rate. Exam reveals no gallop and no friction rub. Pulmonary/Chest: Pt has no wheezes, no rales . Musculoskeletal: pt exhibits no edema in lower extremities . Access; pt has right AVF. It has good thrill and bruit. A/P ESRD requiring HD: Hemodynamically stable on HD; No dialysis-related complications identified during dialysis treatment today. Modifications to orders: continue per dialysis orders. Jason Chavira MD 02/01/2020 documented in this encounter Consult Notes Jason Chavira MD - 02/01/2020 6:41 AM PDTAssociated Order(s): PROVIDER TO PROVIDER C ONSULT [facility] Nephrology Consult Note Date of Admission: 01/31/2020 Consulting Physician: dr genao, hospitalist I had the privilege to see your patient Mr. Enrique Potter Re: ESRD management- dialysis urgency decision HISTORY OF PRESENT ILLNESS History Obtained From patient, chart review The patient is a 54 y.o. male with significant past medical history of End-stage renal disease hemodialysis patient Saturday and Saturday and , chronic sys tolic CHF history diabetes type 2 with complication legal blindness of right eye history of DVT history of superior vena cava syndrome on Coumadin . Patient presented to [facility] with vertigo . His vitals were stable as per stated transfer notes heart rate in 60 systolic blood pressur e 130s to 140s oxygen sats stable patient is afebrile CBC hemoglobin hematocrit baseline sta ble WBC normal CMP no hyperkalemia no acidosis baseline his creatinine LFT was stable EKG no acute ischemic pathology CT of the head no acute pathology INR is 3.5 by record CTA no large vessel occlusion was noted but posterior circulation concern stenosis. He was transferred to [facility] [place] further imaging with MRI to see any other posterior patholog y involved in tern of central aspect Review of Systems: as above . All other review of systems are negative The following portions of the patient's history were reviewed and updated at the time of is dictation as appropriate: allergies, current medications, past family history, past medic al history, past social history, past surgical history and problem list. Past Medical History: Diagnosis Date Abdominal pain, right upper quadrant 04/13/2012 Amphetamine and other psychostimulant dependence, continuous 04/02/2012 Anemia Anemia due to blood loss 04/30/2012 Asthma pt not using inhaler any more, no symptoms AV fistula (HCC) lt arm 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 Chronic obstructive asthma with exacerbation (HCC) 10/27/2013 Chronic systolic heart failure (HCC) 09/10/2016 Diabetes mellitus type I (HCC) Dialysis patient ([facility]) DVT (deep venous thrombosis) ([facility]) x3 GI bleed 04/30/2012 from coumadin Gout Hyperkalemia 11/09/2013 Hyperlipidemia Hyperphosphatemia 05/24/2012 Hypertension Hyponatremia 09/08/2016 Knee pain, right 07/06/2012 MSSA (methicillin susceptible Staphylococcus aureus) infection 04/11/2012 Neuromuscular disorder (HCC) neuropathy 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 Latex Rash Skin "melted" off Physical Exam Blood pressure 132/61, pulse 67, temperature 36.4 C (97.6 F), temperature source Oral, resp. rate 16, height 1.702 m (5' 7"), weight 85 kg (187 lb 6.3 oz), SpO2 99 %. Constitutional: pt appears without distress. HENT: Normocephalic and atraumatic. Eyes: No scleral icterus. Neck: No JVD present. Cardiovascular: Normal rate. Exam reveals no gallop and no friction rub. Pulmonary/Chest: No stridor. No respiratory distress. Pt has no wheezes, no rales. Abdominal: Soft. There is no distension . There is no tenderness and no rebound or guarding . Musculoskeletal: pt exhibits no edema in lower extremities Lymphadenopathy: there is no cervical adenopathy. Neurological: pt is alert and oriented to person, place, and time. There is no asterixis. No facial asymmetry. Skin: Skin is warm and dry. Psychiatric: pt has a normal mood and affect. behavior is normal. Judgment and thought cont ent normal. Access; pt has right AVF. It has good thrill and bruit Laboratory Findings Lab Results Component Value Date BUN 29 (H) 10/19/2017 EGFR 9 (L) 10/19/2017 NA 133 (L) 10/19/2017 K 4.9 11/12/2018 CL 96 (L) 10/19/2017 CO2 26 10/19/2017 CALCIUM 8.2 (L) 10/19/2017 MG 2.3 10/19/2017 ALBUMIN 2.9 (L) 10/19/2017 WBC 5.66 02/01/2020 HGB 11.0 (L) 02/01/2020 PLT 177 02/01/2020 Lab Results Component Value Date CLARITYUA HAZY 07/24/2017 NITRITEUA NEGATIVE 07/24/2017 BILIRUBINUA NEGATIVE 07/24/2017 GLUCOSEU 50 (A) 07/24/2017 Component Value Date/Time LABCREA 6.6 (H) 10/19/2017 0740 LABCREA 8.3 (H) 10/18/2017 0153 LABCREA 6.1 (H) 10/17/2017 0314 LABCREA 8.0 (H) 10/16/2017 0359 LABCREA 6.7 (H) 10/15/2017 0556 LABCREA 9.4 (H) 10/14/2017 0543 LABCREA 7.1 (H) 10/13/2017 0307 LABCREA 9.2 (H) 10/12/2017 0535 LABCREA 7.2 (H) 10/11/2017 0528 LABCREA 7.9 (H) 10/10/2017 0616 LABCREA 10.3 (H) 10/09/2017 0515 LABCREA 9.5 (H) 10/08/2017 0545 MRI brain Brain volume and ventricle size are within normal limits. Focal areas of increased T2 and FLAIR white matter signal. No acute intracranial hemorrhage. No mass or mass effect. No abnormal extra-axial fluid collection. No restricted diffusion. Orbits and extracranial soft tissues appear within normal limits. Paranasal sinus mucosal thickening. Areas of fluid in the right mastoid air cells. Assessment and Plan: ESRD: will plan HD M,W,F - for UF and clearance. reassess volume closely. Access: Functioning well Bone-Mineral Disease management: Calcium is controlled keep dietary phos intake at 1000 mg/day. adjust binders with meals and snacks. Anemia management: adjust epo on Dialysis to keep target Hb between 10-12. Electrolytes :Pt is at high risk of electrolyte imbalance due to TIFFANIE and /or ongoing diu resis. Magnesium and aluminum containing antacids should be avoided. Magnesium or phosphorus containing laxatives should be avoided. BP control: acceptable Volume status controlled. Restrict fluid intake to 1 LITER PER 24 HRS. Restrict sodium intake to 2 Grams per 24 hrs Diet encurage liberal protein, 1 gm PO4, 2 gm Na, and 2 gm K restricted diet. Dose all of meds to an estimated GFR of less than 10 cc/ min. Thank you for asking me to participate in the care of your patient. I will be happy to cont inue to follow up on . Enrique Potter during hospitalization. Jason Chavira MD FACP,FASN 02/01/2020 documente d in this encounter Miscellaneous Notes Plan of Care - Yee Ocampo RN - 02/02/2020 1:23 PM PDTDISCHARGE NOTE: Pt being discharged home. AVS and prescriptions reviewed with pt and family. Copy of AVS pr ovided. IV, de-accessed. Questions answered. Pt left floor ambulatory to home. VSS. No acute observations noted. Problem: Adult Inpatient Plan of Care Goal: Plan of Care Review Outcome: Met Goal: Patient-Specific Goal Outcome: Met Goal: Absence of Hospital-Acquired Illness or Injury Outcome: Met Goal: Optimal Comfort and Wellbeing Outcome: Met Goal: Readiness for Transition of Care Outcome: Met Goal: Rounds/Family Conference Outcome: Met Problem: Fall Injury Risk Goal: Absence of Fall and Fall-Related Injury Outcome: Met Problem: Renal Function Impairment (Chronic Kidney Disease) Goal: Laboratory Values and Blood Pressure Within Desired Range Outcome: Met lan of Care - Barbara Phillips PT - 02/02/2020 10:30 AM PDTPhysical Therapy Initial Evaluation/Discharge N ote Recommended discharge disposition: home with assist Post discharge physical therapy recommendation: no further PT Equipment Recommendations: none Barriers to community-based discharge None Planned Interventions: other (see comments)(d/c PT) Recommended Frequency: one time visit for 1 days with reassessment due by Summary: Michael performed this session, pt admitted with increasing dizziness. Upon arrival pt reports his symptoms have dissipated. Pt had no onset of dizziness with position changes. He reports he felt better after getting dialysis. Sit-stand independent. Pt ambulated 300ft with no AD needed. He demonstrated low fall risk with balance testing. Pt states he has FWW at home if needed. Pt appears safe to d/c home once medically stable. Living Environment Lives With: alone Living Arrangements: house Home Accessibility: no concerns Number of Stairs to Enter Home: 2 Number of Stairs Within Home: 0 Living Environment Comment: Bathtub shower, shower chair, standard toilet with GBs. Has FWW Prior Functional Level Comment: Angélica at home with FWW, reports 1 fall in August. Cognitive Assessment Cognitive Comments: A&O x 4 Transfers Additional Documentation: sit to/from stand Sit-Stand, Level of Raymond: independent Stand-Sit, Level of Raymond: independent [id number], Assistive Device: none Gait Level of Raymond: independent Assistive Device: none Distance (feet): 300ft Strength L UE Strength: WNL R UE Strength: WNL L LE Strength: WNL R LE Strength: WNL Goals Reflects last filed data and may be from multiple contributors. lan of Lianne Underwood RN - 02/02/2020 5:45 AM PDTVSS. Pt continues to have vertigo when sitting up f rom laying position. Per pt vertigo gets worse when looking up. No complaints of nausea. Jarett rly rounding otherwise uneventful. End of shift audit complete. Lianne Sal RN Problem: Fall Injury Risk Goal: Absence of Fall and Fall-Related Injury Outcome: Ongoing, progressing Pt continues to call approprietly. Bed is locked and in lowest position. Non-skid socks an d FWW in use when ambulating. Hourly rounding. PT to see pt today. Problem: Renal Function Impairment (Chronic Kidney Disease) Goal: Laboratory Values and Blood Pressure Within Desired Range Outcome: Ongoing, progressing Nephrology following. Pt had dialysis yesterday with 2.6 L out. BP stable in 120-130s syst olic. Daily labs scheduled to evaluate kidney function. lan of Betzy Deleon RN - 02/01/2020 6:37 PM P DT Problem: Fall Injury Risk Goal: Absence of Fall and Fall-Related Injury Outcome: Ongoing, progressing Problem: Renal Function Impairment (Chronic Kidney Disease) Goal: Laboratory Values and Blood Pressure Within Desired Range Outcome: Ongoing, progressing End of shift note: VSS, no acute changes from initial shift assessment. Pt tolerated dialys is well, PRN x1 administered for nausea. Patient continues to call approprietly for needs. P t continues to complain of some dizziness when patient sits up. End of shift review complete . lan of Care - Oa preeti, HARDIK Abdalla - 02/01/2020 6:06 AM PDTVSS. No reports of pain. Pt still complains of diz ziness with ambulation. Hourly rounding otherwise uneventful. Pt sleeping most of the night. End of shift audit complete. Lianne Sal RN Problem: Adult Inpatient Plan of Care Goal: Plan of Care Review Outcome: Ongoing, progressing POC reviewed with patient. Education provided on need for MRI and SBA when ambulation. Pt agreeable to plan. Will continue to update. Problem: Fall Injury Risk Goal: Absence of Fall and Fall-Related Injury Outcome: Ongoing, progressing Due to vertigo, education provided to pt on calling before getting out of bed. Pt agreeabl e and calling approprietly. Bed is locked and in lowest position. Non-skid socks and FWW in use when ambulating. Hourly rounding. PT to see pt today. Problem: Renal Function Impairment (Chronic Kidney Disease) Goal: Laboratory Values and Blood Pressure Within Desired Range Outcome: Ongoing, progressing Pt with hx of ESRD on hemodialysis. Nephrology following. Daily labs to evaluate kidney fu nction. BP stable in 130-150s systolic.Electronically signed by Lianne Sal RN at 020 6:06 AM PDTdocumented in this encounter Plan of Treatment + + +--------+ + + | Name | Type | Priori | Associated Diagnoses | Order Schedule | | | | ty | | | + + +--------+ + + | Ambulatory Referral | Outpatient | Routin | Vertigo | Ordered: 02/02/2020 | | to [facility] | Referral | e | | | | Therapy | | | | | + + +--------+ + + documented as of this encounter Procedures + +--------+ + + + | Procedure Name | Priori | Date/Time | Associated Diagnosis | Comments | | | ty | | | | + +--------+ + + + | POC GLUCOSE (NON | Routin | 02/02/2020 | | Results for this | | ORD) | e | 11:41 AM | | procedure are in the | | | | PDT | | results section. | + +--------+ + + + | POC GLUCOSE (NON | Routin | 02/02/2020 | | Results for this | | ORD) | e | 6:59 AM | | procedure are in the | | | | PDT | | results section. | + +--------+ + + + | LIPID PANEL | Routin | 02/02/2020 | | Results for this | | | e | 5:30 AM | | procedure are in the | | | | PDT | | results section. | + +--------+ + + + | CBC WITH | Routin | 02/02/2020 | | Results for this | | DIFFERENTIAL | e | 5:30 AM | | procedure are in the | | | | PDT | | results section. | + +--------+ + + + | BASIC METABOLIC | Routin | 02/02/2020 | | Results for this | | PANEL | e | 5:30 AM | | procedure are in the | | | | PDT | | results section. | + +--------+ + + + | POC GLUCOSE (NON | Routin | 02/01/2020 | | Results for this | | ORD) | e | 8:55 PM | | procedure are in the | | | | PDT | | results section. | + +--------+ + + + | POC GLUCOSE (NON | Routin | 02/01/2020 | | Results for this | | ORD) | e | 4:35 PM | | procedure are in the | | | | PDT | | results section. | + +--------+ + + + | HEMODIALYSIS | Routin | 02/01/2020 | | Results for this | | | e | 9:45 AM | | procedure are in the | | | | PDT | | results section. | + +--------+ + + + | HEPATITIS B SURFACE | STAT | 02/01/2020 | | Results for this | | AB, QUANT | | 9:15 AM | | procedure are in the | | | | PDT | | results section. | + +--------+ + + + | HEPATITIS B CORE AB, | STAT | 02/01/2020 | | Results for this | | IGM | | 9:15 AM | | procedure are in the | | | | PDT | | results section. | + +--------+ + + + | HEPATITIS B SURFACE | STAT | 02/01/2020 | | Results for this | | AG | | 9:15 AM | | procedure are in the | | | | PDT | | results section. | + +--------+ + + + | POC GLUCOSE (NON | Routin | 02/01/2020 | | Results for this | | ORD) | e | 6:29 AM | | procedure are in the | | | | PDT | | results section. | + +--------+ + + + | PROTIME INR | Routin | 02/01/2020 | | Results for this | | | e | 4:59 AM | | procedure are in the | | | | PDT | | results section. | + +--------+ + + + | CBC WITH | Routin | 02/01/2020 | | Results for this | | DIFFERENTIAL | e | 4:59 AM | | procedure are in the | | | | PDT | | results section. | + +--------+ + + + | PHOSPHORUS | Routin | 02/01/2020 | | Results for this | | | e | 4:59 AM | | procedure are in the | | | | PDT | | results section. | + +--------+ + + + | MAGNESIUM | Routin | 02/01/2020 | | Results for this | | | e | 4:59 AM | | procedure are in the | | | | PDT | | results section. | + +--------+ + + + | COMPREHENSIVE | Routin | 02/01/2020 | | Results for this | | METABOLIC PANEL | e | 4:59 AM | | procedure are in the | | | | PDT | | results section. | + +--------+ + + + | POC GLUCOSE (NON | Routin | 01/31/2020 | | Results for this | | ORD) | e | 9:10 PM | | procedure are in the | | | | PDT | | results section. | + +--------+ + + + | MRI BRAIN WO | Routin | 01/31/2020 | | Results for this | | CONTRAST | e | 7:28 PM | | procedure are in the | | | | PDT | | results section. | + +--------+ + + + documented in this encounter Results POC Glucose (02/02/2020 11:41 AM PDT) + + + + + + | Component | Value | Ref Range | Performed | Pathologist | | | | | At | Signature | + + + + + + | Glucose, | 160 (H)Comment: Testing | 65 - 99 mg/dL | [facility] | | | POC | performed at [facility];[address] | | LABORATORY | | | | [address];[place], [place] | | | | | | [address] | | | | + + + + + + + + | Specimen | + + | | + + + + + + + | Performing | Address | City/State/Zipcode | Phone Number | | Organization | | | | + + + + + | [facility] | [address] | [place] [address] | [phone] | + + + + + POC Glucose (02/02/2020 6:59 AM PDT) + + + + + + | Component | Value | Ref Range | Performed | Pathologist | | | | | At | Signature | + + + + + + | Glucose, | 75Comment: Testing | 65 - 99 mg/dL | [facility] | | | POC | performed at [facility];[address] | | LABORATORY | | | | [address];[place] | | | | | | [address] | | | | + + + + + + + + | Specimen | + + | | + + + + + + + | Performing | Address | City/State/Zipcode | Phone Number | | Organization | | | | + + + + + | [facility] | [address] | [place] [address] | [phone] | + + + + + CBC with Differential (02/02/2020 5:30 AM PDT) + + + + + + | Component | Value | Ref Range | Performed | Pathologist | | | | | At | Signature | + + + + + + | WBC | 5.38 | 3.80 - 11.00 | [facility] | | | | | K/uL | LABORATORY | | + + + + + + | Red Blood | 3.70 (L) | 4.20 - 5.70 | [facility] | | | Cells | | M/uL | LABORATORY | | + + + + + + | Hemoglobin | 11.1 (L) | 13.2 - 17.0 | [facility] | | | | | g/dL | LABORATORY | | + + + + + + | Hematocrit | 33.1 (L) | 39.0 - 50.0 % | [facility] | | | | | | LABORATORY | | + + + + + + | MCV | 89.5 | 80.0 - 100.0 fl | [facility] | | | | | | LABORATORY | | + + + + + + | MCH | 30.0 | 27.0 - 34.0 pg | [facility] | | | | | | LABORATORY | | + + + + + + | MCHC | 33.5 | 32.0 - 35.5 | [facility] | | | | | g/dL | LABORATORY | | + + + + + + | RDW-SD | 47.1 | 37 - 53 fl | [facility] | | | | | | LABORATORY | | + + + + + + | Platelet | 169 | 150 - 400 K/uL | [facility] | | | Count | | | LABORATORY | | + + + + + + | MPV | 9.0Comment: NO NORMAL | fl | [facility] | | | | RANGE ESTABLISHED | | LABORATORY | | + + + + + + | Diff Type | AUTOMATED | | [facility] | | | | | | LABORATORY | | + + + + + + | % nRBC | 0.0 | 0 /100WBC | [facility] | | | | | | LABORATORY | | + + + + + + | % | 66.30 | % | [facility] | | | Neutrophils | | | LABORATORY | | + + + + + + | IMMATURE | 0.40 | % | [facility] | | | GRANULOCYTE | | | LABORATORY | | + + + + + + | % | 15.40 | % | [facility] | | | Lymphocytes | | | LABORATORY | | + + + + + + | Monocyte % | 8.20 | % | [facility] | | | | | | LABORATORY | | + + + + + + | Eosinophils | 9.10 | % | [facility] | | | % | | | LABORATORY | | + + + + + + | Basophils % | 0.60 | % | [facility] | | | | | | LABORATORY | | + + + + + + | Neutrophils | 3.57 | 1.90 - 7.40 | [facility] | | | , Absolute | | K/uL | LABORATORY | | + + + + + + | IMMATURE | 0.02Comment: NOTE NEW | 0.00 - 0.07 | [facility] | | | GRANS AB | REFERENCE RANGE | K/uL | LABORATORY | | + + + + + + | Absolute | 0.83 (L) | 1.00 - 3.90 | [facility] | | | Lymphocytes | | K/uL | LABORATORY | | + + + + + + | Absolute | 0.44 | 0.00 - 0.80 | [facility] | | | Monocytes | | K/uL | LABORATORY | | + + + + + + | Eosinophils | 0.49 | 0.00 - 0.50 | [facility] | | | , Absolute | | K/uL | LABORATORY | | + + + + + + | Basophils, | 0.03Comment: Testing | 0.00 - 0.10 | [facility] | | | Absolute | performed at [facility], [address] | K/uL | LABORATORY | | | | [address], | | | | | | [place] [address] | | | | + + + + + + + + | Specimen | + + | Blood | + + + + + + + | Performing | Address | City/State/Zipcode | Phone Number | | Organization | | | | + + + + + | [facility] | [address] | [place] [address] | [phone] | + + + + + Lipid Panel (02/02/2020 5:30 AM PDT) + + + + + + | Component | Value | Ref Range | Performed | Pathologist | | | | | At | Signature | + + + + + + | Cholesterol | 119 | <200 mg/dL | [facility] | | | | | | LABORATORY | | + + + + + + | Triglycerid | 125 | <150 mg/dL | [facility] | | | es | | | LABORATORY | | + + + + + + | HDL | 45 | >40 mg/dL | [facility] | | | | | | LABORATORY | | + + + + + + | LDL, | 49Comment: Testing | <100 mg/dL | [facility] | | | Calculated | performed at [facility], [address] | | LABORATORY | | | | [address], | | | | | | [place] [address] | | | | + + + + + + + + | Specimen | + + | Blood | + + + + + + + | Performing | Address | City/State/Zipcode | Phone Number | | Organization | | | | + + + + + | [facility] | [address] | [place] [address] | [phone] | + + + + + Basic Metabolic Panel (02/02/2020 5:30 AM PDT) + + + + + + | Component | Value | Ref Range | Performed | Pathologist | | | | | At | Signature | + + + + + + | Na | 135 | 135 - 145 | [facility] | | | | | mmol/L | LABORATORY | | + + + + + + | K | 4.1 | 3.5 - 4.9 | [facility] | | | | | mmol/L | LABORATORY | | + + + + + + | Cl | 101 | 99 - 109 mmol/L | [facility] | | | | | | LABORATORY | | + + + + + + | CO2 | 29 | 23 - 32 mmol/L | [facility] | | | | | | LABORATORY | | + + + + + + | Anion Gap | 9 | 5 - 20 mmol/L | [facility] | | | | | | LABORATORY | | + + + + + + | Glucose | 103 (H) | 65 - 99 mg/dL | [facility] | | | | | | LABORATORY | | + + + + + + | BUN | 31 (H) | 8 - 25 mg/dL | [facility] | | | | | | LABORATORY | | + + + + + + | Creatinine | 7.00 (H) | 0.70 - 1.30 | [facility] | | | | | mg/dL | LABORATORY | | + + + + + + | BUN/Creatin | 4 | | [facility] | | | ine Ratio | | | LABORATORY | | + + + + + + | Calcium | 7.8 (L) | 8.5 - 10.5 | [facility] | | | | | mg/dL | LABORATORY | | + + + + + + | Estimated | 8 (L)Comment: GFR <60: | >60 | [facility] | | | GFR | CHRONIC KIDNEY DISEASE, | mL/min/1.73m2 | LABORATORY | | | | IF FOUND OVER A 3 MONTH | | | | | | PERIOD.GFR <15: KIDNEY | | | | | | FAILURE.FOR | | | | | | AMERICANS, MULTIPLY THE | | | | | | CALCULATED GFR BY | | | | | | 1.210.This eGFR is | | | | | | calculated using the | | | | | | MDRD IDCT traceable | | | | | | equation.Testing | | | | | | performed at [facility], [address] | | | | | | [facility], | | | | | | [place] [address] | | | | + + + + + + + + | Specimen | + + | Blood | + + + + + + + | Performing | Address | City/State/Zipcode | Phone Number | | Organization | | | | + + + + + | [facility] | [address] | [place] [address] | [phone] | + + + + + POC Glucose (02/01/2020 8:55 PM PDT) + + + + + + | Component | Value | Ref Range | Performed | Pathologist | | | | | At | Signature | + + + + + + | Glucose, | 101 (H)Comment: Testing | 65 - 99 mg/dL | [facility] | | | POC | performed at [facility];[address] | | LABORATORY | | | | [address];[place] | | | | | | [address] | | | | + + + + + + + + | Specimen | + + | | + + + + + + + | Performing | Address | City/State/Zipcode | Phone Number | | Organization | | | | + + + + + | [facility] | [address] | [place] [address] | [phone] | + + + + + POC Glucose (02/01/2020 4:35 PM PDT) + + + + + + | Component | Value | Ref Range | Performed | Pathologist | | | | | At | Signature | + + + + + + | Glucose, | 237 (H)Comment: Testing | 65 - 99 mg/dL | [facility] | | | POC | performed at [facility];[address] | | LABORATORY | | | | [address];[place] | | | | | | [address] | | | | + + + + + + + + | Specimen | + + | | + + + + + + + | Performing | Address | City/State/Zipcode | Phone Number | | Organization | | | | + + + + + | [facility] | [address] | [place] [address] | [phone] | + + + + + HEMODIALYSIS (02/01/2020 9:45 AM PDT) + + + | Narrative | Performed At | + + + | Jason Chavira MD 02/01/2020 9:46 AM [facility] | | | [facility] Hemo-Dialysis Procedure note Pt is seen on | | | Dialysis. Indication for Dialysis: ESRD for Clearance and UF | | | Review of Systems: on dialysis , there is no reported nausea, | | | vomiting, dyspnea, chest pain, dizziness or headache. Laboratory | | | Findings Lab Results Component Value Date BUN 54 (H) 02/01/2020 | | | CREA 10.80 (H) 02/01/2020 EGFR 5 (L) 02/01/2020 NA 134 (L) | | | 02/01/2020 K 5.0 (H) 02/01/2020 CL 99 02/01/2020 CO2 26 | | | 02/01/2020 CALCIUM 7.8 (L) 02/01/2020 PHOS 5.0 (H) 02/01/2020 | | | MG 3.1 (H) 02/01/2020 ALBUMIN 3.4 (L) 02/01/2020 WBC 5.66 | | | 02/01/2020 HGB 11.0 (L) 02/01/2020 PLT 177 02/01/2020 | | | Physical Exam Blood pressure 132/61, pulse 67, temperature | | | 36.4 C (97.6 F), temperature source Oral, resp. rate 16, height | | | 1.702 m (5' 7"), weight 85 kg (187 lb 6.3 oz), SpO2 99 %. QB | | | 500 qd 600 AP -200 Guillotine Trimmer 180 Constitutional: pt | | | appears without distress. Cardiovascular: Normal rate. Exam | | | reveals no gallop and no friction rub. Pulmonary/Chest: Pt has | | | no wheezes, no rales . Musculoskeletal: pt exhibits no edema in | | | lower extremities . Access; pt has right AVF. It has good thrill | | | and bruit. A/P ESRD requiring HD: Hemodynamically stable on | | | HD; No dialysis-related complications identified during dialysis | | | treatment today. Modifications to orders: continue per dialysis | | | orders. Jason Chavira MD 02/01/2020 | | + + + Hepatitis B Core Ab, IgM (02/01/2020 9:15 AM PDT) + + + + + + | Component | Value | Ref Range | Performed | Pathologist | | | | | At | Signature | + + + + + + | HEP B CORE | NegativeComment: Testing | Negative | [facility] | | | IgM | performed at [facility], | | LABORATORY | | | | [address], | | | | | | [facility] [address] | | | | + + + + + + + + | Specimen | + + | Blood | + + + + + + + | Performing | Address | City/State/Zipcode | Phone Number | | Organization | | | | + + + + + | [facility] | [address] | [place] [address] | [phone] | + + + + + Hepatitis B Surface Ab, Quant (02/01/2020 9:15 AM PDT) + + + + + + | Component | Value | Ref Range | Performed | Pathologist | | | | | At | Signature | + + + + + + | [facility] | 362.2Comment: Status of | Immunity>9.9 | [facility] | | | SURFACE | Immunity | mIU/mL | LABORATORY | | | ANTIBODY | Anti-HBs | | | | | | Level | | | | | | | | | | | | | | | | | | | | | | | | Inconsiste | | | | | | nt with Immunity | | | | | | 0.0 | | | | | | - 9.9Consistent with | | | | | | Immunity | | | | | | | | | | | | >9.9Testing performed | | | | | | at [facility], [address], [place] [address], [facility] | | | | | | [address] | | | | + + + + + + + + | Specimen | + + | Blood | + + + + + + + | Performing | Address | City/State/Zipcode | Phone Number | | Organization | | | | + + + + + | [facility] | [address] | [place] [address] | [phone] | + + + + + Hepatitis B Surface Ag (02/01/2020 9:15 AM PDT) + + + + + + | Component | Value | Ref Range | Performed | Pathologist | | | | | At | Signature | + + + + + + | Hepatitis B | NegativeComment: Testing | Negative | [facility] | | | Surface Ag | performed at [facility], | | LABORATORY | | | | [address], [address], | | | | | | [facility] [address] | | | | + + + + + + + + | Specimen | + + | Blood | + + + + + + + | Performing | Address | City/State/Zipcode | Phone Number | | Organization | | | | + + + + + | [facility] | [address] | [place] [address] | [phone] | + + + + + POC Glucose (02/01/2020 6:29 AM PDT) + + + + + + | Component | Value | Ref Range | Performed | Pathologist | | | | | At | Signature | + + + + + + | Glucose, | 85Comment: Testing | 65 - 99 mg/dL | [facility] | | | POC | performed at [facility];[address] | | LABORATORY | | | | [address];[place] | | | | | | [address] | | | | + + + + + + + + | Specimen | + + | | + + + + + + + | Performing | Address | City/State/Zipcode | Phone Number | | Organization | | | | + + + + + | [facility] | [address] | [place] [address] | [phone] | + + + + + Protime INR (02/01/2020 4:59 AM PDT) + + + + + + | Component | Value | Ref Range | Performed | Pathologist | | | | | At | Signature | + + + + + + | INR | 3.2Comment: REFERENCE | | [facility] | | | | RANGE:0.9 - 1.2 | | LABORATORY | | | | NON-ANTICOAGULATED2.0 | | [...] [place] | | | | | | [address] | | | | + + + + + + + + | Specimen | + + | Blood | + + + + + + + | Performing | Address | City/State/Zipcode | Phone Number | | Organization | | | | + + + + + | [facility] | [address] | [place] [address] | [phone] | + + + + + Phosphorus (02/01/2020 4:59 AM PDT) + + + + + + | Component | Value | Ref Range | Performed | Pathologist | | | | | At | Signature | + + + + + + | Phosphorus | 5.0 (H)Comment: Testing | 2.3 - 4.8 mg/dL | [facility] | | | | performed at [facility], [address] | | LABORATORY | | | | [address], | | | | | | [place] [address] | | | | + + + + + + + + | Specimen | + + | Blood | + + + + + + + | Performing | Address | City/State/Zipcode | Phone Number | | Organization | | | | + + + + + | [facility] | [address] | [place] [address] | [phone] | + + + + + CBC with Differential (02/01/2020 4:59 AM PDT) + + + + + + | Component | Value | Ref Range | Performed | Pathologist | | | | | At | Signature | + + + + + + | WBC | 5.66 | 3.80 - 11.00 | [facility] | | | | | K/uL | LABORATORY | | + + + + + + | Red Blood | 3.65 (L) | 4.20 - 5.70 | [facility] | | | Cells | | M/uL | LABORATORY | | + + + + + + | Hemoglobin | 11.0 (L) | 13.2 - 17.0 | [facility] | | | | | g/dL | LABORATORY | | + + + + + + | Hematocrit | 32.6 (L) | 39.0 - 50.0 % | [facility] | | | | | | LABORATORY | | + + + + + + | MCV | 89.3 | 80.0 - 100.0 fl | [facility] | | | | | | LABORATORY | | + + + + + + | MCH | 30.1 | 27.0 - 34.0 pg | [facility] | | | | | | LABORATORY | | + + + + + + | MCHC | 33.7 | 32.0 - 35.5 | [facility] | | | | | g/dL | LABORATORY | | + + + + + + | RDW-SD | 47.7 | 37 - 53 fl | [facility] | | | | | | LABORATORY | | + + + + + + | Platelet | 177 | 150 - 400 K/uL | [facility] | | | Count | | | LABORATORY | | + + + + + + | MPV | 9.4Comment: NO NORMAL | fl | [facility] | | | | RANGE ESTABLISHED | | LABORATORY | | + + + + + + | Diff Type | AUTOMATED | | [facility] | | | | | | LABORATORY | | + + + + + + | % nRBC | 0.0 | 0 /100WBC | [facility] | | | | | | LABORATORY | | + + + + + + | % | 67.60 | % | [facility] | | | Neutrophils | | | LABORATORY | | + + + + + + | IMMATURE | 0.20 | % | [facility] | | | GRANULOCYTE | | | LABORATORY | | + + + + + + | % | 14.80 | % | [facility] | | | Lymphocytes | | | LABORATORY | | + + + + + + | Monocyte % | 7.20 | % | [facility] | | | | | | LABORATORY | | + + + + + + | Eosinophils | 9.70 | % | [facility] | | | % | | | LABORATORY | | + + + + + + | Basophils % | 0.50 | % | [facility] | | | | | | LABORATORY | | + + + + + + | Neutrophils | 3.82 | 1.90 - 7.40 | [facility] | | | , Absolute | | K/uL | LABORATORY | | + + + + + + | IMMATURE | 0.01Comment: NOTE NEW | 0.00 - 0.07 | [facility] | | | GRANS AB | REFERENCE RANGE | K/uL | LABORATORY | | + + + + + + | Absolute | 0.84 (L) | 1.00 - 3.90 | [facility] | | | Lymphocytes | | K/uL | LABORATORY | | + + + + + + | Absolute | 0.41 | 0.00 - 0.80 | [facility] | | | Monocytes | | K/uL | LABORATORY | | + + + + + + | Eosinophils | 0.55 (H) | 0.00 - 0.50 | [facility] | | | , Absolute | | K/uL | LABORATORY | | + + + + + + | Basophils, | 0.03Comment: Testing | 0.00 - 0.10 | [facility] | | | Absolute | performed at [facility], [address] | K/uL | LABORATORY | | | | [address], | | | | | | [place] [address] | | | | + + + + + + + + | Specimen | + + | Blood | + + + + + + + | Performing | Address | City/State/Zipcode | Phone Number | | Organization | | | | + + + + + | [facility] | [address] | [place] [address] | [phone] | + + + + + Comprehensive Metabolic Panel (02/01/2020 4:59 AM PDT) + + + + + + | Component | Value | Ref Range | Performed | Pathologist | | | | | At | Signature | + + + + + + | Na | 134 (L) | 135 - 145 | [facility] | | | | | mmol/L | LABORATORY | | + + + + + + | K | 5.0 (H) | 3.5 - 4.9 | [facility] | | | | | mmol/L | LABORATORY | | + + + + + + | Cl | 99 | 99 - 109 mmol/L | [facility] | | | | | | LABORATORY | | + + + + + + | CO2 | 26 | 23 - 32 mmol/L | [facility] | | | | | | LABORATORY | | + + + + + + | Anion Gap | 14 | 5 - 20 mmol/L | [facility] | | | | | | LABORATORY | | + + + + + + | Glucose | 79 | 65 - 99 mg/dL | [facility] | | | | | | LABORATORY | | + + + + + + | BUN | 54 (H) | 8 - 25 mg/dL | [facility] | | | | | | LABORATORY | | + + + + + + | Creatinine | 10.80 (H) | 0.70 - 1.30 | [facility] | | | | | mg/dL | LABORATORY | | + + + + + + | BUN/Creatin | 5 | | [facility] | | | ine Ratio | | | LABORATORY | | + + + + + + | Calcium | 7.8 (L) | 8.5 - 10.5 | [facility] | | | | | mg/dL | LABORATORY | | + + + + + + | Protein, | 7.4 | 6.3 - 8.2 g/dL | [facility] | | | Total | | | LABORATORY | | + + + + + + | Albumin | 3.4 (L) | 3.6 - 5.0 g/dL | [facility] | | | | | | LABORATORY | | + + + + + + | Globulin | 4.0 | 1.3 - 4.9 g/dL | [facility] | | | | | | LABORATORY | | + + + + + + | A/G Ratio | 0.9 (L) | 1.0 - 2.4 | [facility] | | | | | | LABORATORY | | + + + + + + | BILIRUBIN, | 0.8 | 0.1 - 1.5 mg/dL | [facility] | | | TOTAL | | | LABORATORY | | + + + + + + | ALK PHOS | 84 | 35 - 115 U/L | [facility] | | | | | | LABORATORY | | + + + + + + | AST | 24 | 10 - 45 U/L | [facility] | | | | | | LABORATORY | | + + + + + + | ALT | 27 | 10 - 65 U/L | [facility] | | | | | | LABORATORY | | + + + + + + | Estimated | 5 (L)Comment: GFR <60: | >60 | [facility] | | | GFR | CHRONIC KIDNEY DISEASE, | mL/min/1.73m2 | LABORATORY | | | | IF FOUND OVER A 3 MONTH | | | | | | PERIOD.GFR <15: KIDNEY | | | | | | FAILURE.FOR | | | | | | AMERICANS, MULTIPLY THE | | | | | | CALCULATED GFR BY | | | | | | 1.210.This eGFR is | | | | | | calculated using the | | | | | | [facility] traceable | | | | | | equation.Testing | | | | | | performed at [facility], [address] | | | | | | [facility], | | | | | | [place] [address] | | | | + + + + + + + + | Specimen | + + | Blood | + + + + + + + | Performing | Address | City/State/Zipcode | Phone Number | | Organization | | | | + + + + + | [facility] | [address] | [place] [address] | [phone] | + + + + + Magnesium (02/01/2020 4:59 AM PDT) + + + + + + | Component | Value | Ref Range | Performed | Pathologist | | | | | At | Signature | + + + + + + | Magnesium | 3.1 (H)Comment: Testing | 1.7 - 2.4 mg/dL | [facility] | | | | performed at [facility], [address] | | LABORATORY | | | | [address], | | | | | | [place] [address] | | | | + + + + + + + + | Specimen | + + | Blood | + + + + + + + | Performing | Address | City/State/Zipcode | Phone Number | | Organization | | | | + + + + + | [facility] | [address] | [place] [address] | [phone] | + + + + + POC Glucose (01/31/2020 9:10 PM PDT) + + + + + + | Component | Value | Ref Range | Performed | Pathologist | | | | | At | Signature | + + + + + + | Glucose, | 150 (H)Comment: Testing | 65 - 99 mg/dL | [facility] | | | POC | performed at [facility];[address] | | LABORATORY | | | | [address];[place], [place] | | | | | | [address] | | | | + + + + + + + + | Specimen | + + | | + + + + + + + | Performing | Address | City/State/Zipcode | Phone Number | | Organization | | | | + + + + + | [facility] | [address] | [place] [address] | [phone] | + + + + + MRI Brain wo Contrast (01/31/2020 7:28 PM PDT) + + | Specimen | + + | | + + + + + | Impressions | Performed At | + + + | There are a few focal areas of increased T2 and FLAIR white matter | [facility] | | signal which are nonspecific and could be sequela of prior ischemic or | | | inflammatory disease. No acute ischemia, hemorrhage, mass, or | | | other acute intracranial abnormality is identified. Please see | | | above. Final Report Signed by: Arslan James, Raheem Arriola | | | Date/Time: 01/31/2020 7:43 PM | | + + + + + + | Narrative | Performed At | + + + | MRI BRAIN WITHOUT CONTRAST CLINICAL INFORMATION: Dizziness | [facility] | | COMPARISON: CT HEAD WO CONTRAST (10/03/2012); MRI BRAIN WO AND MRA | | | HEAD (07/06/2012); PROCEDURE: Sagittal T1, axial FLAIR, axial T2, | | | axial T1, axial gradient susceptibility, coronal T2, axial DWI. | | | FINDINGS: Brain volume and ventricle size are within normal limits. | | | Focal areas of increased T2 and FLAIR white matter signal. No | | | acute intracranial hemorrhage. No mass or mass effect. No | | | abnormal extra-axial fluid collection. No restricted diffusion. | | | Orbits and extracranial soft tissues appear within normal limits. | | | Paranasal sinus mucosal thickening. Areas of fluid in the right | | | mastoid air cells. | | + + + + + | Procedure Note | + + | Néstor, [id number] - 01/31/2020 7:47 PM PDT | | MRI BRAIN WITHOUT CONTRAST | | | | CLINICAL INFORMATION: | | Dizziness | | | | COMPARISON: | | CT HEAD WO CONTRAST (10/03/2012); MRI BRAIN WO AND MRA HEAD (07/06/2012); | | | | PROCEDURE: | | Sagittal T1, axial FLAIR, axial T2, axial T1, axial gradient | | susceptibility, coronal T2, axial DWI. | | | | FINDINGS: | | Brain volume and ventricle size are within normal limits. | | | | Focal areas of increased T2 and FLAIR white matter signal. No acute | | intracranial hemorrhage. No mass or mass effect. No abnormal | | extra-axial fluid collection. No restricted diffusion. | | | | Orbits and extracranial soft tissues appear within normal limits. | | Paranasal sinus mucosal thickening. Areas of fluid in the right | | mastoid air cells. | | | | IMPRESSION: | | There are a few focal areas of increased T2 and FLAIR white matter | | signal which are nonspecific and could be sequela of prior ischemic or | | inflammatory disease. No acute ischemia, hemorrhage, mass, or other | | acute intracranial abnormality is identified. Please see above. 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[facility]) Type II or unspecified type | | diabetes mellitus with unspecified complication, not stated as uncontrolled | + + | Essential hypertension Unspecified essential hypertension | + + | Anemia due to chronic kidney disease, on chronic dialysis ([facility]) | + + | HTN (hypertension) Unspecified essential hypertension | + + | ESRD (end stage renal disease) on dialysis (HCC) End stage renal disease | + + | Chronic obstructive asthma ([facility]) Chronic obstructive asthma, unspecified | + + | Chronic systolic (congestive) heart failure ([facility]) | + + | DM2 (diabetes mellitus, type 2) ([facility]) Type II or unspecified type diabetes mellitus | | without mention of complication, not stated as uncontrolled | + + | HLD (hyperlipidemia) Other and unspecified hyperlipidemia | + + | Weakness generalized Other malaise and fatigue | + + | History of DVT (deep vein thrombosis) Personal history of venous thrombosis and | | embolism | + + documented in this encounter Administered Medications + +--------+ +--------+------+------+ | Medication Order | MAR | Action | Dose | Rate | Site | | | Action | Date | | | | + +--------+ +--------+------+------+ | allopurinol (ZYLOPRIM) tablet | Given | 02/02/20 | 100 mg | | | | 100 mg 100 mg, Oral, DAILY, | | 20 8:03 | | | | | First dose on 02/01/20 at 0900 | | AM PDT | | | | + +--------+ +--------+------+------+ +-------+ +--------+---+---+ | Given | 02/01/20 | 100 mg | | | | | 20 3:29 | | | | | | PM PDT | | | | +-------+ +--------+---+---+ +---+---+ | | | +---+---+ + +-------+ +-------+---+---+ | aspirin EC tablet 81 mg 81 mg, | Given | 02/01/20 | 81 mg | | | | Oral, NIGHTLY, First dose on Sun | | 20 8:53 | | | | | 01/31/20 at 2100, Do not cut or | | PM PDT | | | | | crush., | | | | | | + +-------+ +-------+---+---+ +-------+ +-------+---+---+ | Given | 01/31/20 | 81 mg | | | | | 20 9:05 | | | | | | PM PDT | | | | +-------+ +-------+---+---+ +---+---+ | | | +---+---+ + +-------+ +-------+---+---+ | atorvaSTATin (LIPITOR) tablet | Given | 02/01/20 | 10 mg | | | | 10 mg 10 mg, Oral, NIGHTLY, | | 20 8:53 | | | | | First dose on 01/31/20 at 2100 | | PM PDT | | | | + +-------+ +-------+---+---+ +-------+ +-------+---+---+ | Given | 01/31/20 | 10 mg | | | | | 20 9:05 | | | | | | PM PDT | | | | +-------+ +-------+---+---+ +---+---+ | | | +---+---+ + +-------+ + +---+---+ | b complex-vitamin c-folic acid | Given | 02/01/20 | 1 tablet | | | | (NEPHRO-THU) tablet 1 tablet 1 | | 20 8:53 | | | | | tablet, Oral, NIGHTLY, First dose | | PM PDT | | | | | on 01/31/20 at 2100 | | | | | | + +-------+ + +---+---+ +-------+ + +---+---+ | Given | 01/31/20 | 1 tablet | | | | | 20 9:05 | | | | | | PM PDT | | | | +-------+ + +---+---+ +---+---+ | | | +---+---+ + +-------+ +---------+---+---+ | budesonide-formoterol | Given | 02/02/20 | 2 puffs | | | | (SYMBICORT) 160-4.5 mcg/puff | | 20 8:03 | | | | | inhaler 2 puff 2 puff, | | AM PDT | | | | | Inhalation, RT BID, First dose on | | | | | | | 01/31/20 at 2100, Shake well. | | | | | | | Use with spacer. Rinse mouth | | | | | | | after use., | | | | | | + +-------+ +---------+---+---+ +-------+ +---------+---+---+ | Given | 02/01/20 | 2 puffs | | | | | 20 8:53 | | | | | | PM PDT | | | | +-------+ +---------+---+---+ | Given | 02/01/20 | 2 puffs | | | | | 20 3:31 | | | | | | PM PDT | | | | +-------+ +---------+---+---+ +---+---+ | | | +---+---+ + +-------+ +---------+---+---+ | carvedilol (COREG) tablet 6.25 | Given | 02/02/20 | 6.25 mg | | | | mg 6.25 mg, Oral, 2 TIMES DAILY | | 20 8:03 | | | | | WITH BREAKFAST & DINNER, First | | AM PDT | | | | | dose on 01/31/20 at 1900 | | | | | | + +-------+ +---------+---+---+ +-------+ +---------+---+---+ | Given | 02/01/20 | 6.25 mg | | | | | 20 6:11 | | | | | | PM PDT | | | | +-------+ +---------+---+---+ | Given | 01/31/20 | 6.25 mg | | | | | 20 9:05 | | | | | | PM PDT | | | | +-------+ +---------+---+---+ +---+---+ | | | +---+---+ + +-------+ +--------+---+---+ | cholecalciferol (VITAMIN D-3) | Given | 02/02/20 | 2,000 | | | | tablet 2,000 Units 2,000 Units, | | 20 8:03 | Units | | | | Oral, DAILY, First dose on Mon | | AM PDT | | | | | 02/01/20 at 0900 | | | | | | + +-------+ +--------+---+---+ +-------+ +--------+---+---+ | Given | 02/01/20 | 2,000 | | | | | 20 3:30 | Units | | | | | PM PDT | | | | +-------+ +--------+---+---+ + +---+ | | | + +---+ | dextrose 10% (D10W) infusion | | | at 50 mL/hr, Intravenous, | | | CONTINUOUS PRN, hypoglycemia, | | | Starting 01/31/20 at 1754, | | | Start infusion if unable to | | | maintain blood glucose greater | | | than 70 mg/dL after two rounds of | | | hypoglycemia treatment. Recheck | | | blood glucose 30 minutes after | | | starting D10W then at least | | | hourly and PRN until it is | | | discontinued. Call provider to | | | discuss parameters for D10W | | | discontinuation., | | + +---+ | | | + +---+ | dextrose 50% injection 12.5-25 | | | g 12.5-25 g, Intravenous, PRN, | | | Low Blood Sugar, Starting Sun | | | 01/31/20 at 1754, For blood glucose | | | 50-69 mg/dl - give 12.5 g For | | | blood glucose less than 50 mg/dl | | | - give 25 g, | | + +---+ | | | + +---+ + +-------+ +--------+---+---+ | ferrous sulfate tablet 325 mg | Given | 02/02/20 | 325 mg | | | | 325 mg, Oral, DAILY WITH | | 20 8:02 | | | | | BREAKFAST, First dose on Mon | | AM PDT | | | | | 02/01/20 at 0800 | | | | | | + +-------+ +--------+---+---+ +---+---+ | | | +---+---+ + +---------+ + +-------+---+ | heparin (dialysis) 1,000 | New Bag | 02/01/20 | 600 | 0.6 | | | units/mL infusion 600 Units/hr | | 20 9:27 | Units/hr | mL/hr | | | (0.6 mL/hr), at 0.6 mL/hr, | | AM PDT | | | | | Intravenous, DIALYSIS - | | | | | | | CONTINUOUS, Starting 02/01/20 | | | | | | | at 0915, For 3 hours, DIALYSIS | | | | | | | USE ONLY - DISCONTINUE AFTER | | | | | | | DIALYSIS IS COMPLETE, Treatment | | | | | | | date(s): 02/01/2020, Dialysis | | | | | | + +---------+ + +-------+---+ +---+---+ | | | +---+---+ + +-------+ +--------+---+---+ | heparin (dialysis) 1,000 | Given | 02/01/20 | 2,000 | | | | units/mL injection 2,000 Units | | 20 9:22 | Units | | | | 2,000 Units, Intravenous, | | AM PDT | | | | | DIALYSIS - ONCE, 02/01/20 at | | | | | | | 0915, For 1 dose, DIALYSIS USE | | | | | | | ONLY - DISCONTINUE AFTER DIALYSIS | | | | | | | IS COMPLETE, Treatment date(s): | | | | | | | 02/01/2020, Dialysis | | | | | | + +-------+ +--------+---+---+ +---+---+ | | | +---+---+ + +-------+ +---------+---+ + | insulin lispro (humaLOG) | Given | 02/02/20 | 2 Units | | Abdomen- | | injection (vial) 0-12 Units 0-12 | | 20 12:41 | | | RUQ | | Units, Subcutaneous, 4 TIMES | | PM PDT | | | | | DAILY WITH MEALS & NIGHTLY, First | | | | | | | dose on 01/31/20 at 2100, | | | | | | | CORRECTION SCALE: Blood Glucose | | | | | | | (BG) < 150: None | | | | | | | BG 150-200: DAY: 2 units. | | | | | | | NIGHT: 0 units BG 201-250: DAY: | | | | | | | 4 units. NIGHT: 2 units BG | | | | | | | 251-300: DAY: 6 units. NIGHT: | | | | | | | 4 units BG 301-350: DAY: 8 | | | | | | | units. NIGHT: 6 units BG | | | | | | | 351-400: DAY: 10 units. NIGHT: 8 | | | | | | | units BG > 400 : DAY: 12 | | | | | | | units. NIGHT: 10 units | | | | | | | AND CALL PROVIDER | | | | | | | , Use DAY DOSE for doses | | | | | | | scheduled: AC, NPO, Daytime | | | | | | | [phone] Use NIGHT DOSE for | | | | | | | doses scheduled: HS, | | | | | | | Nighttime [phone] If the BG is | | | | | | | not checked before the patient | | | | | | | starts eating, do not give | | | | | | | correction insulin. Only for use | | | | | | | with U-100 insulin syringe., | | | | | | + +-------+ +---------+---+ + +-------+ +---------+---+ + | Given | 02/01/20 | 4 Units | | Arm-Righ | | | 20 5:00 | | | t Upper | | | PM PDT | | | | +-------+ +---------+---+ + +---+---+ | | | +---+---+ + +-------+ +--------+---+---+ | levothyroxine (SYNTHROID) | Given | 02/02/20 | 75 mcg | | | | tablet 75 mcg 75 mcg, Oral, | | 20 6:46 | | | | | DAILY BEFORE BREAKFAST, First | | AM PDT | | | | | dose on Sat02/01/20 at 0730, Give | | | | | | | before breakfast., | | | | | | + +-------+ +--------+---+---+ +-------+ +--------+---+---+ | Given | 02/01/20 | 75 mcg | | | | | 20 6:30 | | | | | | AM PDT | | | | +-------+ +--------+---+---+ +---+---+ | | | +---+---+ + +-------+ +-------+---+---+ | montelukast (SINGULAIR) tablet | Given | 02/01/20 | 10 mg | | | | 10 mg 10 mg, Oral, NIGHTLY, | | 20 8:53 | | | | | First dose on 01/31/20 at 2100 | | PM PDT | | | | + +-------+ +-------+---+---+ +-------+ +-------+---+---+ | Given | 01/31/20 | 10 mg | | | | | 20 9:05 | | | | | | PM PDT | | | | +-------+ +-------+---+---+ +---+---+ | | | +---+---+ + +-------+ +------+---+---+ | ondansetron (ZOFRAN ODT) | Given | 02/01/20 | 4 mg | | | | disintegrating tablet 4 mg 4 mg, | | 20 6:12 | | | | | Oral, EVERY 6 HOURS PRN, Nausea, | | PM PDT | | | | | Vomiting, Starting 01/31/20 at | | | | | | | 1754, First line agent, | | | | | | + +-------+ +------+---+---+ +---+---+ | | | +---+---+ + +-------+ + +---+---+ | sevelamer carbonate (RENVELA) | Given | 02/02/20 | 2,400 mg | | | | tablet 2,400 mg 2,400 mg, Oral, | | 20 11:24 | | | | | 3 TIMES DAILY WITH MEALS, First | | AM PDT | | | | | dose on 01/31/20 at 2000, Do | | | | | | | not cut or crush tablets., | | | | | | + +-------+ + +---+---+ +-------+ + +---+---+ | Given | 02/02/20 | 2,400 mg | | | | | 20 8:02 | | | | | | AM PDT | | | | +-------+ + +---+---+ | Given | 02/01/20 | 2,400 mg | | | | | 20 6:10 | | | | | | PM PDT | | | | +-------+ + +---+---+ +---+---+ | | | +---+---+ + +-------+ + +---+---+ | sodium bicarbonate tablet 1,300 | Given | 02/02/20 | 1,300 mg | | | | mg 1,300 mg, Oral, 2 TIMES | | 20 8:02 | | | | | DAILY, First dose on 01/31/20 | | AM PDT | | | | | at 2100 | | | | | | + +-------+ + +---+---+ +-------+ + +---+---+ | Given | 02/01/20 | 1,300 mg | | | | | 20 8:53 | | | | | | PM PDT | | | | +-------+ + +---+---+ | Given | 01/31/20 | 1,300 mg | | | | | 20 9:05 | | | | | | PM PDT | | | | +-------+ + +---+---+ + +---+ | | | + +---+ | warfarin per pharmacy PHARMACY | | | Michael SHELTON 01/31/20 at | | | 2045, What is the goal INR range | | | for this patient? 2-3 | | + +---+ | | | + +---+ documented in this encounter Additional Health Concerns + [...]
--- OUTSIDE RECORDS SUMMARY | ~2020-03-11 | XMS | Encounter Summary ---
Demographics + + + | Address | [address] | | | [place] [address] | + + + | Home Phone [...] Author + + + | Author | [facility] | | | and [place] | + + + | Organization | [facility] | | | and [...] Team Providers + +------+ + | Care Trestle Builder Name | Role | Phone | + +------+ + PCP | Unavailable | + +------+ + Encounter Details +--------+ + + + + | Date | Type | Department | Care Team | Description | +--------+ + + + + | 03/15/ | Hospital | [facility] | Paulie Mcgarry, | Sepsis ([facility]); | | 2013 - | Encounter | [facility] | MD Umer Rivera | Pneumonia; ESRD on | | | | [address] | [place] [address] | hemodialysis ([facility]); | | 03/20/ | | [address] | [phone] | DM (diabetes | | 2013 | | [place], [place] | | mellitus) ([facility]); | | | | [address] | | Gram-positive cocci | | | | [phone] | | bacteremia; Anemia | | | | | | of chronic kidney | | | | | | failure; ESRD (end | | | | | | stage renal disease) | | | | | | on dialysis ([facility]); | | | | | | HTN (hypertension); | | | | | | Diabetes mellitus | | | | | | with ESRD (end-stage | | | | | | renal disease) | | | | | | ([facility]) | +--------+ + + + + Social [...] documented as of this encounter Discharge Summaries Douglas Stevenson MD - 03/20/2014 11:37 AM PDTFormatting of this note might be different from th e original. Discharge Summaries by Douglsa Stevenson MD at 03/20/141136 Author: Douglas Stevenson MD Service: (none) Author Type: Physician Filed: 04/02/14 1630 Date of Service: 03/20/141136 Status: Signed Regional Clinical Director: Douglas Stevenson MD (Physician) Related Notes: Original Note by Douglas Stevenson MD (Physician) filed at 03/20/14 7828 [facility] Service: Hospitalist Physician Discharge Summary Patient ID: Carol Potter [id number] 48 y.o. 1965 Admit date: 03/15/2014 Discharge date and time: 03/20/2014 Admitting Physician: Paulie Mcgarry MD Discharge Physician: Douglas Stevenson MD Consultants: Treatment Team: Consulting Physician: Kisha Tello MD Consulting Physician: Oskar Meyer MD Consulting Physician: Cosmo Soria MD Admitting Provider: Paulie Mcgarry MD Discharge Diagnoses: Principal Problem: Pneumonia, organism unspecified Active Problems: Secondary hyperparathyroidism (of renal origin) Diabetes mellitus with ESRD (end-stage renal disease) HTN (hypertension) ESRD (end stage renal disease) on dialysis Anemia of chronic kidney failure Gram-positive cocci bacteremia The first problem in the assessment and plan below is a primary discharge diagnosis unless specifically stated otherwise. HPI and Hospital Course: * A 48-year-old male with past medical history of end-stage renal disease on hemodialysis thr ough a Perm-Cath and also has a right AV-fistula that has not matured yet who presented with fevers from the hemodialysis center. He was originally seen at [facility] where h e was thought to have pneumonia and because they do not have a hemodialysis unit, the patien t was transferred here. Here, the patient was treated with Levaquin and later on he was foun d to have MSSA bacteria that was present x2. Repeat cultures finally on the third time were negative. He was treated with IV vancomycin. He was seen by ID and most likely the source we re thought to be because of the left Perm-Cath and at this point the decision was made to co ntinue his Perm-Cath and continue the IV antibiotics. So, he will be treated with IV vancomy navdeep for 4 weeks and follow up as an outpatient with ID and nephrology. He also will continue Levaquin for a total of 10 days for a questionable pneumonia seen on x-rays, tolerating it well. All questions were answered. PRIMARY DISCHARGE DIAGNOSIS Methicillin-susceptible Staphylococcus aureus bacteremia. Disposition: *Home Follow up: Kisha Tello MD [address] [place] [address] [place] [address] In 2 weeks [facility] Dictation and ball mill mixer or software, ebindle, used which may contain error for similar s ounding words even after review. Personal communication requested for any clarification. Secondary Discharge Diagnoses AND Other Medical History: Past Medical History Diagnosis Date Hyperlipidemia Hypertension Thyroid disease Anemia Abdominal pain, right upper quadrant 04/13/2012 Dialysis patient GI bleed 04/30/2012 from coumadin Walker as [...] eruption 04/03/2012 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 Neuromuscular disorder neuropathy Hyperkalemia 11/09/2013 Chronic obstructive asthma with exacerbation 10/27/2013 SOB (shortness of breath) 10/27/2013 Past Surgical History Procedure Laterality Date Colonoscopy with egd 05/01/2012 Procedure: COLONOSCOPY W/ EGD; Surgeon: John Singleton MD; Location: [facility] ENDOSCOPY; Se rvice: Gastroenterology; Laterality: N/A; Av fistula placement 05/06/2012 Procedure: AV FISTULA; Surgeon: Oskar Meyer MD; Location: [facility] MAIN OR; Service: Vascul ar; Laterality: Left; Left arm possible right Unlisted procedure arthroscopy shoulder rt , ligaments Knee arthroscopy 07/07/2012 Procedure: KNEE - ARTHROSCOPY; Surgeon: Favio Raza MD; [facility]; Laterality: Right; After 1530 Catheter removal 07/07/2012 Procedure: DIALYSIS CATHETER REMOVAL; Surgeon: Oskar Meyer MD; Location: [facility] BEDSIDE [place] OCEDURE; Service: General; Laterality: Right; perm cath Dialysis fistula creation 07/07/2012 Procedure: DIALYSIS CATHETER INSERTION; Surgeon: Oskar Meyer MD; Location: [facility] BEDSIDE PROCEDURE; Service: General; Laterality: Left; temporary dialysis catheter Av fistula repair 07/11/2012 Procedure: AV FISTULA GRAFT REPAIR/REVISION; Surgeon: Oskar Meyer MD; Location: [facility] OR; Service: Vascular; Laterality: Left; Superficialization of brachiobasilic fistula and right IJ perm cath insertion Dialysis fistula creation 07/11/2012 Procedure: DIALYSIS CATHETER INSERTION; Surgeon: Oskar Meyer MD; Location: [facility] MAIN OR; Service: Vascular; Laterality: Left; removed dialysis catheter from left neck and placed new on in left chest, attempted in right neck but unable to place Av fistula placement Right 02/09/2014 Procedure: AV FISTULA; Surgeon: Oskar Meyer MD; Location: [facility] MAIN OR; Service: Vascul ar; Laterality: Right; Discharged Condition: Stable for D/c as dictated above. Significant Diagnostic Studies: X-ray Chest 1 View 03/18/2014 CAROL POTTER 1965 48 years XR CHEST 1 VIEW 03/18/2014 5:55 AM INDICATION: Pne umonia COMPARISON: October 27, 2013 TECHNIQUE: Chest 1 view, AP view of the chest 03/18/2014 FINDINGS/ IMPRESSION: Left central venous catheter tip within the right atrium . No pneumothorax, no pleural effusion. Left lower lobe consolidation consistent with pneu monia or aspiration. No acute osseous abnormality. Discharge Vitals: Filed Vitals: 03/19/14 1949 03/19/14 2342 03/20/14 0256 03/20/14 0748 BP: 126/56 106/58 124/59 121/65 Pulse: 81 78 71 79 Temp: 98.4 F (36.9 C) 98.1 F (36.7 C) 98.7 F (37.1 C) 98.1 F (36.7 C) TempSrc: Oral Oral Oral Oral Resp: 19 19 17 18 Height: Weight: 73.5 kg (162 lb 0.6 oz) SpO2: 98% 97% 95% 100% Discharge Exam: General: Well nourished. Psych: Alert and oriented x 3. Calm, cooperative. Cardiovascular: Left perm cath. Regular rate and rhythm, no murmurs, no thrills. Normal PM I. Respiratory: Clear to auscultation, no wheezing or crackles, breathing non labored. Gastrointestinal: Soft, non-tender, non-distended, positive bowel sounds. No HSM. Musculoskeletal: R AVF good bruit. No edema in bilateral lower extremities. No joint swell ing. Skin: Warm and dry, no rashes. Neck: No JVD, Trachea midline. Neurological: Non focal. Motor grossly intact. LABS: CBC: Lab Results Component Value Date WBC 6.5 03/20/2014 RBC 3.53* 03/20/2014 HGB 10.8* 03/20/2014 HCT 31.6* 03/20/2014 MCV 89.5 03/20/2014 MCH 30.5 03/20/2014 MCHC 34.0 03/20/2014 RDW 47.3 03/20/2014 PLT 167 03/20/2014 MPV 8.0 03/20/2014 DIFFTYPE AUTOMATED 03/20/2014 CMP: Lab Results Component Value Date NA 129* 03/20/2014 K 3.6 03/20/2014 CL 97* 03/20/2014 CO2 25 03/20/2014 ANIONGAP 11 03/20/2014 GLUF 91 03/20/2014 BUN 27* 03/20/2014 CREATININE 4.91* 03/20/2014 BCR 5 03/20/2014 CA 8.1* 03/20/2014 CA 6.1* 04/02/2012 PROT 6.0* 11/10/2013 ALB 3.5* 11/10/2013 GLOB 2.5 11/10/2013 BILITOT 0.6 11/10/2013 ALP 122* 11/10/2013 AST 18 11/10/2013 ALT 22 11/10/2013 EGFR 13* 03/20/2014 Albumin: Lab Results Component Value Date ALB 3.5* 11/10/2013 Magnesium: Lab Results Component Value Date MG 1.8 03/16/2014 Phosphorus: Lab Results Component Value Date PHOS 3.0 03/16/2014 PT/INR: Lab Results Component Value Date INR 0.9 02/08/2014 Troponin: Lab Results Component Value Date TROPONINI <0.02 10/10/2012 Last 3 Troponin: Lab Results Component Value Date TROPONINI <0.02 10/10/2012 TROPONINI <0.02 10/10/2012 TROPONINI <0.02 10/10/2012 TSH: Lab Results Component Value Date TSH 8.41* 09/11/2012 Patient Instructions: Medication List START taking these medications levofloxacin 250 MG tablet QTY: 2 tablet Refills: 0 Commonly known as: LEVAQUIN Take 1 tablet by mouth every other day. vancomycin IVPB QTY: 12 Doses Refills: 0 Commonly known as: VANCOCIN Inject 750 mg into the vein 3 (three) times a week. 750 mg IV with hemodialysis CONTINUE taking these medications acetaminophen 325 MG tablet Refills: 0 Commonly known as: TYLENOL * albuterol 1.25 MG/3ML nebulizer solution QTY: 75 mL Refills: 0 Doctor's comments: nebuliser kit Commonly known as: ACCUNEB Take 3 mLs by nebulization every 4 (four) hours as needed for Wheezing. * albuterol 108 (90 BASE) MCG/ACT inhaler QTY: 1 Inhaler Refills: 1 Commonly known as: PROVENTIL HFA Inhale 2 puffs into the lungs every 4 (four) hours as needed for Wheezing. allopurinol 100 MG tablet Refills: 0 Commonly known as: ZYLOPRIM amLODIPine 10 MG tablet Refills: 0 Commonly known as: NORVASC b complex-vitamin c-folic acid 0.8 MG Tabs tablet Refills: 0 carvedilol 3.125 MG tablet Refills: 0 Commonly known as: COREG Cholecalciferol 2000 UNITS Tabs Refills: 0 fluticasone-salmeterol 250-50 MCG/DOSE QTY: 60 each Refills: 0 Commonly known as: ADVAIR DISKUS Inhale 1 puff into the lungs 2 (two) times daily. furosemide 20 MG tablet Refills: 0 Commonly known as: LASIX levothyroxine 75 MCG tablet Refills: 0 Commonly known as: SYNTHROID loperamide 2 MG capsule Refills: 0 Commonly known as: IMODIUM montelukast 10 MG tablet QTY: 30 tablet Refills: 0 Commonly known as: SINGULAIR Take 1 tablet by mouth nightly. * sevelamer 800 MG tablet Refills: 0 Commonly known as: RENVELA * sevelamer 800 MG tablet Refills: 0 Commonly known as: RENVELA * RENVELA 800 MG tablet QTY: 300 tablet Refills: 1 Generic drug: sevelamer take 3 tablets by mouth three times a day WITH MEALS AND 1 TABLET WITH SNACKS sodium bicarbonate 650 MG tablet Refills: 0 * Notice: This list has 5 medication(s) that are the same as other medications prescribed for you. Read the directions carefully, and ask your doctor or other care provider to revie w them with you. STOP taking these medications doxycycline [address] capsule Commonly known as: DORYX Where to Get Your Medications These are the prescriptions that you need to hand picker. You may get the following medications from any pharmacy - levofloxacin 250 MG tablet - vancomycin IVPB Activity: activity as tolerated Diet: Cardiac Diet Discharge took more than 35 minutes, to include final examination, discussion of admission, and preparation of prescriptions, instructions for ongoing care, follow up and dictation of summary. There are no Patient Instructions on file for this visit. Follow-up with PMD and other physicians as directed. Signed: Douglas Stevenson 03/20/2014 11:37 AM documented in this encou nter Medications at Time of Discharge + + [...] Progress Notes Conversion Transaction, Provider Unknown - 03/20/2014 10:06 AM PDTFormatting of this note m ight be different from the original. Progress Notes by Curtis Victoria RPH at 03/20/14 1006 Author: Curtis Victoria RPH Service: (none) Author Type: Pharmacist Filed: 03/20/14 1006 Date of Service: 03/20/14 1006 Status: Signed Regional Clinical Director: Curtis Victoria RPH (Pharmacist) No HD scheduled for 03/20- no vanco dose needed. Elsie Yang - 03/20/2014 10:06 AM PDT Progress Notes by Elsie Sharma MD at 03/20/14 1006 Author: Elsie Sharma MD Service: Infectious Disease Author Type: Physician Filed: 03/20/14 1714 Date of Service: 03/20/14 100 Status: Signed Regional Clinical Director: Elsie Sharma MD (Physician) Related Notes: Original Note by Elsie Sharma MD (Physician) filed at 03/20/14 1016 [facility] Service: Infectious Disease Progress Note Hospital Day: LOS: 5 days Post-Op Day: * No surgery found * SUBJECTIVE Patient Summary: The patient is a 48 y.o. male with significant past medical history of diabetic nephropathy, end-stage renal disease on dialysis, previous history of multiple episodes of bacteremia [with Staphylococcus aureus, MSSA, Streptococcus anginosus] , right k nee septic arthritis, completed at least 3 different courses of intravenous antibiotics foll owed by oral doxycycline which he completed in April 2013, last visit with infectious dis ease in November 2012, multiple skin lesions thought to be secondary to long-term dialysis; pres ented to [facility] on 03/14 with symptoms of cough, chills, myalgias, fevers. Nik birch was thought to have pneumonia, possible septicemia. Cultures were drawn and he was s tarted on vancomycin and Zosyn and levofloxacin. He was then shift to [facility] for further ma nagement. Recently had right arm brachial basilic fistula creation in January 2014. Blood cultures drawn at [facility] prior to transfer now showing gram-positive cocci in 2 out of 2 sets. Patient has been on levofloxacin for presumably pneumonia. Currently giv en one dose of vancomycin. Infectious disease consulted. Patient is a poor historian and gives different options and they have requesting. It appea rs that he was sick over the weekend feeling cold, and having body aches. Unclear if he rec eived any doses of prednisone-according to patient was given some prednisone which helped re lieve the symptoms. On Saturday morning when he presented to dialysis he did well until about the last half an hour-when he started having violent chills and fever. It was then that clarence madrid had cultures drawn, antibiotics given and shifted initially to [facility] and then subsequently here. His medication at presentation includes doxycycline-unclear if he has continued to remain o n this-was due to complete this in April as per last infectious disease note. However he has not followed up with ID since November 2012. Blood culture growth from [facility] is MSSA in 4 out of 4 bottles. Events Overnight: Patient is currently feeling well. He denies chills and sweats. H e denies discomfort at his hemodialysis catheter site. He states that the cough has improved and has not recurred. He denies phlegm production, dyspnea, or wheezing. He denies diarrhea . Scheduled Medications allopurinol 100 mg Oral Daily amLODIPine 10 mg Oral Daily carvedilol 3.125 mg Oral BID WC cholecalciferol 2,000 Units Oral Daily epoetin alena 4,000 Units Intravenous QMWF fluticasone-salmeterol 1 puff Inhalation BID [START ON 03/21/2014] levofloxacin 250 mg Intravenous Q48H levothyroxine 75 mcg Oral QAM AC montelukast 10 mg Oral Nightly sevelamer 2,400 mg Oral TID WC sodium bicarbonate 1,300 mg Oral BID vancomycin (VANCOCIN) IVPB < 1 G 750 mg Intravenous See Admin Instructions vitamin B aemfrgb-L-iebcf acid 1 tablet Oral Daily Continuous Infusions PRN Medications acetaminophen, acetaminophen, albumin human, albuterol, albuterol, loperamide, ondansetron, ondansetron, polyethylene glycol, sevelamer, sodium chloride OBJECTIVE Vital Signs: BP 121/65 | Pulse 79 | Temp(Src) 98.1 F (36.7 C) (Oral) | Resp 18 | Ht 1.702 m (5' 7") | Wt 73.5 kg (162 lb 0.6 oz) | BMI 25.37 kg/m2 | SpO2 100% Temp: [98.1 F (36.7 C)-98.7 F (37.1 C)] 98.1 F (36.7 C) (03/20 748) BP: (106-143)/(56-80) 121/65 mmHg (03/20 748) Heart Rate: [71-84] 79 (03/20 748) Resp: [17-19] 18 (03/20 748) SpO2: [95 %-100 %] 100 % (03/20 748) Weight: [73.5 kg (162 lb 0.6 oz)] 73.5 kg (162 lb 0.6 oz) (03/20 256) Physical Exam Vital signs have been reviewed Gen.:In good spirits and appears comfortable; well-kempt HEENT: Anicteric sclerae, no conjunctival petechiae, no oral thrush, supple neck Left IJ hemodialysis catheter site unremarkable; R chest wall peripheral IV site Lungs: No rales, wheezes or rhonchi noted Cardiovascular: Regular rate and rhythm, no appreciable murmur or rubs Abdomen: Soft, no tenderness Skin: Much improved. Some dryness is noted Neurologic: Oriented 3, no focal weakness or numbness Right upper extremity AV fistula with good thrill, no erythema or tenderness DATA CBC: Lab Results Component Value Date WBC 6.5 03/20/2014 RBC 3.53* 03/20/2014 HGB 10.8* 03/20/2014 HCT 31.6* 03/20/2014 MCV 89.5 03/20/2014 MCH 30.5 03/20/2014 MCHC 34.0 03/20/2014 RDW 47.3 03/20/2014 PLT 167 03/20/2014 MPV 8.0 03/20/2014 DIFFTYPE AUTOMATED 03/20/2014 WBC: Lab Results Component Value Date WBC 6.5 03/20/2014 NEUTABSMAN 7.0 03/18/2014 NEUTROABS 4.1 03/20/2014 NEUTROMAN 78 03/18/2014 LYMPHOABS 0.6* 03/18/2014 LYMPHOMAN 7 03/18/2014 LYMPHSABS 1.0 03/20/2014 LYMPHOPCT 14.8 03/20/2014 MONOABSMAN 1.3* 03/18/2014 MONOMAN 14 03/18/2014 MONOPCT 20.2 03/20/2014 EOSINOABS 0.2 07/06/2012 EOSINOMAN 1 07/06/2012 EOSABS 0.1 03/20/2014 EOSPCT 1.7 03/20/2014 BASOABSMAN 0.1 05/01/2012 BASOSABS 0.0 03/20/2014 BASOSMAN 1 05/01/2012 BASOPCT 0.7 03/20/2014 PLTEST ADEQUATE 11/09/2013 BANDSPCT 1 03/18/2014 NRBC 1* 05/02/2012 METAABS 0.1* 03/17/2014 METAPCT 1 03/17/2014 COMDIFF SLIDE SCANNED, AGREES WITH AUTOMATED RESULTS. 11/09/2013 CMP: Lab Results Component Value Date NA 129* 03/20/2014 K 3.6 03/20/2014 CL 97* 03/20/2014 CO2 25 03/20/2014 ANIONGAP 11 03/20/2014 GLUF 91 03/20/2014 BUN 27* 03/20/2014 CREATININE 4.91* 03/20/2014 BCR 5 03/20/2014 CA 8.1* 03/20/2014 CA 6.1* 04/02/2012 PROT 6.0* 11/10/2013 ALB 3.5* 11/10/2013 GLOB 2.5 11/10/2013 BILITOT 0.6 11/10/2013 ALP 122* 11/10/2013 AST 18 11/10/2013 ALT 22 11/10/2013 EGFR 13* 03/20/2014 Microbiology Results (last 14 days) Procedure Component Value Units Date/Time Blood Culture Set 1 [[id number]] (Abnormal) Collected: 03/17/14 1351 Order Status: Completed Updated: 03/20/14 0745 Specimen Information: Blood / Blood Line Draw Specimen Description BLOOD, LINE DRAW SPECIAL REQUESTS DIAL.LINE LD3 GRAM STAIN GRAM-POSITIVE COCCUS (A) GRAM STAIN SEEN IN AEROBIC BOTTLE GRAM STAIN SMEAR RESULTS CALLED TO AND READ BACK BY: GRAM ANNIE Martinez IN 6RP ON 03/18/14 AT 1620 [employer] CULTURE STAPHYLOCOCCUS AUREUS (A) CULTURE FINDING OF ORGANISM GROWTH (A) CULTURE TIME TO DETECTION: CULTURE 0.95 DAYS CULTURE Result: Testing performed at [facility], [address] [place] [id number] Culture & Susceptibility STAPHYLOCOCCUS AUREUS Antibiotic Sensitivity Microscan Status Gentamicin Sensitive SUSCEPTIBLE Final Method: TERRANCE Moxifloxacin Sensitive SUSCEPTIBLE Final Method: TERRANCE Oxacillin Sensitive SUSCEPTIBLE Final Method: TERRANCE Penicillin G Resistant RESISTANT Final Method: TERRANCE Tetracycline Resistant RESISTANT Final Method: TERRANCE Trimethoprim + Sulfamethoxazole Sensitive SUSCEPTIBLE Final Method: TERRANCE Vancomycin Sensitive SUSCEPTIBLE Final Method: TERRANCE Second set of blood cultures from March 17, 2014, with no growth. March 18, 2014, blood culture with no growth to-date. Blood cultures from [facility] have grown MSSA. Radiology Results (last 7 days) Impression: FINDINGS/ IMPRESSION: Left central venous catheter tip within the right atrium. No pneumothorax, no pleural effusion. Left lower lobe consolidation consistent with pneumonia or aspiration. No acute osseous abnormality. LEM LIST Principal Problem: Pneumonia, organism unspecified Active Problems: Secondary hyperparathyroidism (of renal origin) Diabetes mellitus with ESRD (end-stage renal disease) HTN (hypertension) ESRD (end stage renal disease) on dialysis Anemia of chronic kidney failure Gram-positive cocci bacteremia ASSESSMENT & PLAN Septicemia From Dr. Tello's note: Previous history has been with MSSA and Streptococcus anginosus. It appears that patient has received multiple courses of antibiotics for recurrent bacterem ia. Was advised to stay on oral doxycycline for a few months-which he should have completed in April. However he is on doxycycline at present-appears to have continued long-term-d iscontinued yesterday Previously, source of bacteremia has never been found-thought to be skin as he had multiple excoriations-at present he has none of these. Previous RONY 2 have not shown any vegetation. Fever with bacteremia: Blood cultures at [facility] are now identified as MSSA in 4 out of 4 bottles. 03/17 blood culture has MSSA from dialysis line draw, so source of bacteremia/sepsis is the line Patient is doing clinically better, afebrile with normal WBC. No new murmur on exam to sugg est infective endocarditis. I have discussed replacing the dialysis catheter with Dr. Reid from Nephrology; she recomm ends keeping the HD catheter. Patient is supposed to follow up with Dr. Oskar Meyer about his R UE AVF in about 2 weeks. Plan for discharge today on IV vancomycin 750 mg for 4 weeks (stop date 04/16) to be given with hemodialysis with plan for ID follow up every 2 weeks and surveillance blood cultures a fter completing IV antibiotic therapy. Social work consulted for IV vancomycin to be set up with dialysis; this has been done. Orders in EPIC and paper chart. Pneumonia Patient was thought to have pneumonia and started on levofloxacin Repeat chest x-ray yesterday shows left lower lobe consolidation consistent with pneumonia Patient on levofloxacin 500 mg q 48, day 6 of 10 End-stage renal disease on dialysis Antibiotic dosing as above Case discussed with Dr. Stevenson Code Status: Full Code ELSIE SHARMA MD 03/20/2014 Sean Willis MD - 03/20/2014 10:00 AM PDT Progress Notes by Sean Reid MD at 03/20/14 1000 Author: Sean Reid MD Service: Nephrology Author Type: Physician Filed: 03/20/14 1356 Date of Service: 03/20/14 1000 Status: Signed Regional Clinical Director: Sean Reid MD (Physician) [facility] Service: NEPHROLOGY Progress Note Carol Potter 48 y.o. [id number] male [facility] Hospital Day: LOS: 5 days SUBJECTIVE .CHIEF COMPLAINT: I had fever HISTORY OF PRESENT ILLNESS: Carol Potter is a 48 y.o. male with Significant PMH of ESRD secondary to Biopsy-proven Diabet ic nephropathy who is dialyzed Saturday and Saturday at [facility] dialysis unit via [place] upper extremity brachio cephalic fistula , DM2 , Secondary hyperparathyroidism , Anemia o f chronic renal failure ,Treated with IV antibiotics for endocarditis in the past. Clotted A VF 11/04 when hospitalized at [facility] and had tunneled catheter placed. Right upper extremity bra chiocephalic fistula by Dr. Meyer 02/04, Presented with fever at the dialysis unit and complain ed of not feeling well for the past 2-3 days with cough, diffuse body aches. Indicated one o f his granddaughters being sick with a mild infection which resolved. Sent to [facility] after completion of his dialysis treatment where he was felt to have pneumonia with leukocytosis and infiltrate seen on the chest x-ray. MAXIMUM TEMPERA TURE noted to be 1 or 2.5. Started on intravenous Levaquin after blood cultures were drawn. Staph aureus bacteremia. 4 out of 4 bottles, Actually left (after review of X ray from [facility] ec) lower lobe pneumonia, most likely bacterial: Most likely source of bacteremia is his Per mCath. We'll continue Levaquin for now. Follow blood cultures. Continue with vancomycin in d ialysis Otherwise hemodynamically stable. Rapid flu testing 03/15 negative. Nephrology was consulted for evaluation and management of ESRD management. PMH, PSH, Social history, allergies, medications reviewed. ADMITTED WITH Pneumonia, organism unspecified Patient is feeling better, denies any nausea vomiting diarrhea or fever SHYANNE is at the bedside. Patient denies any nausea vomiting diarrhea fever cough. Past Medical History Diagnosis Date Hyperlipidemia Hypertension Thyroid disease Anemia Abdominal pain, right upper quadrant 04/13/2012 Dialysis patient GI bleed 04/30/2012 from coumadin Walker as [...] eruption 04/03/2012 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 Neuromuscular disorder neuropathy Hyperkalemia 11/09/2013 Chronic obstructive asthma with exacerbation 10/27/2013 SOB (shortness of breath) 10/27/2013 Past Surgical History Procedure Laterality Date Colonoscopy with egd 05/01/2012 Procedure: COLONOSCOPY W/ EGD; Surgeon: John Singleton MD; Location: [facility] ENDOSCOPY; Se rvice: Gastroenterology; Laterality: N/A; Av fistula placement 05/06/2012 Procedure: AV FISTULA; Surgeon: Oskar Meyer MD; Location: [facility] MAIN OR; Service: Vascul ar; Laterality: Left; Left arm possible right Unlisted procedure arthroscopy shoulder rt , ligaments Knee arthroscopy 07/07/2012 Procedure: KNEE - ARTHROSCOPY; Surgeon: Favio Raza MD; Location: [facility] MAIN OR; ervice: Orthopedics; Laterality: Right; After 1530 Catheter removal 07/07/2012 Procedure: DIALYSIS CATHETER REMOVAL; Surgeon: Oskar Meyer MD; Location: [facility] BEDSIDE [place] OCEDURE; Service: General; Laterality: Right; perm cath Dialysis fistula creation 07/07/2012 Procedure: DIALYSIS CATHETER INSERTION; Surgeon: Oskar Meyer MD; Location: [facility] BEDSIDE PROCEDURE; Service: General; Laterality: Left; temporary dialysis catheter Av fistula repair 07/11/2012 Procedure: AV FISTULA GRAFT REPAIR/REVISION; Surgeon: Oskar Meyer MD; Location: [facility] OR; Service: Vascular; Laterality: Left; Superficialization of brachiobasilic fistula and right IJ perm cath insertion Dialysis fistula creation 07/11/2012 Procedure: DIALYSIS CATHETER INSERTION; Surgeon: Oskar Meyer MD; Location: [facility] MAIN OR; Service: Vascular; Laterality: Left; removed dialysis catheter from left neck and placed new on in left chest, attempted in right neck but unable to place Av fistula placement Right 02/09/2014 Procedure: AV FISTULA; Surgeon: Oskar Meyer MD; Location: [facility] MAIN OR; Service: Vascul ar; Laterality: Right; History Social History Marital Status: Spouse Name: [...] KIDS. CURRENTLY UNEMPLOYED, BEFOR E WORKED AT [employer] IN [place]. Quit METHAMPHETAMINES PER PATIENT after t he ARF in mar 2012. FATHER HAS COLON CANCER, HEART DISEASE, MOTHER 15 YEARS AGO. NO FH KIDNEY PROBLEMS. Family History Problem Relation Age of Onset Heart disease Mother Heart disease Father Diabetes Father Cancer Father colon cancer Scheduled Medications allopurinol 100 mg Oral Daily amLODIPine 10 mg Oral Daily carvedilol 3.125 mg Oral BID WC cholecalciferol 2,000 Units Oral Daily epoetin alena 4,000 Units Intravenous QMWF fluticasone-salmeterol 1 puff Inhalation BID [START ON 03/21/2014] levofloxacin 250 mg Intravenous Q48H levothyroxine 75 mcg Oral QAM AC montelukast 10 mg Oral Nightly sevelamer 2,400 mg Oral TID WC sodium bicarbonate 1,300 mg Oral BID vancomycin (VANCOCIN) IVPB < 1 G 750 mg Intravenous See Admin Instructions vitamin B zxxkjln-J-dparg acid 1 tablet Oral Daily Continuous Infusions PRN Medications acetaminophen, acetaminophen, albumin human, albuterol, albuterol, loperamide, ondansetron, ondansetron, polyethylene glycol, sevelamer, sodium chloride Allergy: Allergies Allergen Reactions Lisinopril Other (See Comments) "makes me sweat and knocked me out" Penicillins Other (See Comments) Unknown 10/08/12: Patient tolerated Ceftriaxone during previous admissions. OBJECTIVE Vital Signs: BP 121/65 | Pulse 79 | Temp(Src) 98.1 F (36.7 C) (Oral) | Resp 18 | Ht 1.702 m (5' 7") | Wt 73.5 kg (162 lb 0.6 oz) | BMI 25.37 kg/m2 | SpO2 100% I&O Detailed Table: I/O last 3 completed shifts: In: 3300 [P.O.:1300; Other:2000] Out: 4275 [Urine:275; Other:4000] Weight change: 1 kg (2 lb 3.3 oz) Hemodynamics Last 24hrs: Examination: Constitutional: Alert and oriented to person, place, and time. Appears well-developed and well-nourished. HEENT: Neck supple, no JVD, non icteric sclera. Cardiovascular: S1+ S2 no friction rub. LUNGS:: Clear breath sounds bilaterally, no wheezes and no rales. Abdominal: Soft, non tender on palpation, No distension and no mass. There is no rebound t enderness and no guarding. Musculoskeletal: No gross deformity, EXT: No pedal edema and pulses are palpable. Neurological: No gross focal motor neurologic deficits. Skin: Skin is warm and dry. No rashes, lacerations, erythema or jaundice. Psychiatric: AXOX3, mood and affect ok, memory seems to be intact. Lymph Nodes: Not Palpable HD ACCESS: LIJ PERMACATH IN USE Clotted AVF 11/04 when hospitalized at [facility] and had tunneled catheter placed. Right upper extremity brachiocephalic fistula by Dr. Meyer 02/04 LABS: IRON: Lab Results Component Value Date IRON 40* 09/10/2012 Lab Results Component Value Date FERRITIN 933* 09/10/2012 LABIRON 35 09/10/2012 CBC: Lab Results Component Value Date WBC 6.5 03/20/2014 RBC 3.53* 03/20/2014 HGB 10.8* 03/20/2014 HCT 31.6* 03/20/2014 MCV 89.5 03/20/2014 MCH 30.5 03/20/2014 MCHC 34.0 03/20/2014 RDW 47.3 03/20/2014 PLT 167 03/20/2014 MPV 8.0 03/20/2014 DIFFTYPE AUTOMATED 03/20/2014 CMP: Lab Results Component Value Date NA 129* 03/20/2014 K 3.6 03/20/2014 CL 97* 03/20/2014 CO2 25 03/20/2014 ANIONGAP 11 03/20/2014 GLUF 91 03/20/2014 BUN 27* 03/20/2014 CREATININE 4.91* 03/20/2014 BCR 5 03/20/2014 CA 8.1* 03/20/2014 CA 6.1* 04/02/2012 PROT 6.0* 11/10/2013 ALB 3.5* 11/10/2013 GLOB 2.5 11/10/2013 BILITOT 0.6 11/10/2013 ALP 122* 11/10/2013 AST 18 11/10/2013 ALT 22 11/10/2013 EGFR 13* 03/20/2014 Magnesium: Lab Results Component Value Date MG 1.8 03/16/2014 Phosphorus: Lab Results Component Value Date PHOS 3.0 03/16/2014 PT/INR: Lab Results Component Value Date INR 0.9 02/08/2014 Troponin: Lab Results Component Value Date TROPONINI <0.02 10/10/2012 Lab Results Component Value Date PTHINTACT 255* 04/02/2012 [id number] <12* 04/02/2012 Lab Results Component Value Date TSH 8.41* 09/11/2012 TSH 7.30* 07/06/2012 TSH 16.60* 04/03/2012 Lab Results Component Value Date URICACID 8.2 04/02/2012 Lab Results Component Value Date HGBA1C 5.8 11/10/2013 HGBA1C UNABLE TO CALCULATE 09/11/2012 HGBA1C 6.0 05/14/2012 IMAGING X-ray Chest 1 View 03/18/2014 CAROL POTTER 1965 48 years XR CHEST 1 VIEW 03/18/2014 5:55 AM INDICATION: Pne umonia COMPARISON: October 27, 2013 TECHNIQUE: Chest 1 view, AP view of the chest 03/18/2014 FINDINGS/ IMPRESSION: Left central venous catheter tip within the right atrium . No pneumothorax, no pleural effusion. Left lower lobe consolidation consistent with pneu monia or aspiration. No acute osseous abnormality. LEM LIST Principal Problem: Pneumonia, organism unspecified Active Problems: Secondary hyperparathyroidism (of renal origin) Diabetes mellitus with ESRD (end-stage renal disease) HTN (hypertension) ESRD (end stage renal disease) on dialysis Anemia of chronic kidney failure Gram-positive cocci bacteremia ASSESSMENT & [facility] [place] [facility] HD ACCESS: LIJ PERMACATH IN USE Clotted AVF 11/04 when hospitalized at [facility] and had tunneled catheter placed. Right upper extremity brachiocephalic fistula by Dr. Meyer 02/04 Lab Results Component Value Date BUN 27* 03/20/2014 BUN 49* 03/19/2014 BUN 31* 03/18/2014 CREATININE 4.91* 03/20/2014 CREATININE 7.33* 03/19/2014 CREATININE 5.28* 03/18/2014 EGFR 13* 03/20/2014 EGFR 8* 03/19/2014 EGFR 12* 03/18/2014 Hypertension reasonably controlled, compliant with and no side effects from Coreg, amlodipine BP Readings from Last 3 Encounters: 03/20/14 121/65 02/09/14 115/60 02/09/14 115/60 Mild hyponatremia in ESRD with acute respiratory infection and some degree of volume overload (noted non oliguric sta te). Lab Results Component Value Date NA 129* 03/20/2014 NA 128* 03/19/2014 NA 127* 03/18/2014 Mild hypoalbuminemia, Needs to eat more protein stable. Secondary hyperparathyroidism. PTH followed in the outpatient dialysis unit. On renvela. Anemia of chronic renal failure, stable. Lab Results Component Value Date HGB 10.8* 03/20/2014 HGB 10.6* 03/19/2014 HGB 9.8* 03/18/2014 FERRITIN 933* 09/10/2012 FERRITIN 245.0 04/28/2012 FERRITIN 139 04/02/2012 LABIRON 35 09/10/2012 LABIRON 20 04/28/2012 LABIRON 38 04/02/2012 Noted mild thrombocytopenia. Stable without any overt bleeding. Bronchitis/pneumonia improved on levofloxacin. Leukocytosis resolved. Afebrile. BACTEREMIA: blood cultures from [facility] positive for gram-positive cocci in 4 bottles. MSSA Started on vancomycin By ID will need for 4 more weeks in HD unit Was On long-term doxycycline. Has been discontinued For skin lesions 2-3 years ago Discussed with Dr. Stevenson, last blood culture report neg and trying to D/C home Discussed with Dr. Zimmerman, I have Arranged for vancomycin 750 mg during hemodialysis 3 times a week until then 11/10/2013 at chronic hemodialysis unit in [place], I have already informed the nurse there. D/W SHYANNE REID MD 03/20/2014 Jeaneth Abraham MD - 03/19/2014 12:36 PM PDT . Progress Notes by Douglas Stevenson MD at 03/19/14 1236 Author: Douglas Stevenson MD Service: (none) Author Type: Physician Filed: 03/19/14 1239 Date of Service: 03/19/141235 Status: Signed Regional Clinical Director: Douglas Stevenson MD (Physician) [facility] Service: Hospitalist Progress Note Hospital Day: LOS: 4 days Consultants: Treatment Team: Consulting Physician: Kisha Tello MD Consulting Physician: Oskar Meyer MD Consulting Physician: Cosmo Soria MD Admitting Provider: Paulie Mcgarry MD The first problem in assessment is the principal problem. ASSESSMENT/ PLAN 1. Staph aureus bacteremia. left lower lobe pneumonia, most likely bacterial: Most likely source of bacteremia is his PermCath. We'll continue Levaquin for now 10/31. Follow blood cu ltures. Continue with vancomycin in dialysis Discussed with nephrology also and ID 03/19. . Repeat cultures also positive here in hospita l. Will await for same. Possible discharge tomorrow if that negative. 2. ESRD, on hemodialysis Continue chronic management . 3. Hypertension, chronic stable. Continue home medications 4. Diabetes mellitus continue with insulin . Current regimen. 5. Thrombocytopenia :Most likely due to sepsis. Follow-up closely . Improving. Telemetry: Not Required. Newman: Not Required. DVT: On SCd due to above. Disposition: home Pending above . Code Status: Full Code Dictation and ball mill mixer or software, ebindle, used which may contain error for similar s ounding words even after review. Personal communication requested for any clarification. SUBJECTIVE Events Overnight: *Patient does not have any complaints at all again. Denies any cough, sh ortness of breath, nausea, vomiting, diarrhea. Last blood culture yesterday was positive. OBJECTIVE Vital Signs: BP 143/77 | Pulse 80 | Temp(Src) 98 F (36.7 C) (Oral) | Resp 18 | Ht 1.702 m (5' 7") | Wt 72.5 kg (159 lb 13.3 oz) | BMI 25.03 kg/m2 | SpO2 100% Filed Vitals: 03/19/14 1145 03/19/14 1200 03/19/14 1203 03/19/14 1215 BP: 134/74 138/77 138/77 143/77 Pulse: Temp: TempSrc: Resp: Height: Weight: SpO2: Intake/Output Summary (Last 24 hours) at 03/19/14 1236 Last data filed at 03/19/14 1203 Gross per 24 hour Intake 2750 ml Output 4250 ml Net -1500 ml General: Well nourished. Psych: Alert and oriented x 3. Calm, cooperative. Cardiovascular: left-sided tunnel catheter . Regular rate and rhythm, no murmurs, no thril ls. Normal PMI. Respiratory: Clear to auscultation, no wheezing or crackles, breathing non labored. Gastrointestinal: Soft, non-tender, non-distended, positive bowel sounds. No HSM. Musculoskeletal: right-sided AV fistula has a bruit No edema in bilateral lower extremitie s. No joint swelling. Skin: Warm and dry, no rashes. Neck: No JVD, Trachea midline. Neurological: Non focal. Motor grossly intact. DATA CBC: Lab Results Component Value Date WBC 9.2 03/19/2014 RBC 3.50* 03/19/2014 HGB 10.6* 03/19/2014 HCT 31.2* 03/19/2014 MCV 89.1 03/19/2014 MCH 30.2 03/19/2014 MCHC 33.9 03/19/2014 RDW 47.7 03/19/2014 PLT 131* 03/19/2014 MPV 8.6 03/19/2014 DIFFTYPE AUTOMATED 03/19/2014 CMP: Lab Results Component Value Date NA 128* 03/19/2014 K 3.6 03/19/2014 CL 94* 03/19/2014 CO2 23 03/19/2014 ANIONGAP 15 03/19/2014 GLUF 127* 03/19/2014 BUN 49* 03/19/2014 CREATININE 7.33* 03/19/2014 BCR 7 03/19/2014 CA 8.6 03/19/2014 CA 6.1* 04/02/2012 PROT 6.0* 11/10/2013 ALB 3.5* 11/10/2013 GLOB 2.5 11/10/2013 BILITOT 0.6 11/10/2013 ALP 122* 11/10/2013 AST 18 11/10/2013 ALT 22 11/10/2013 EGFR 8* 03/19/2014 Magnesium: Lab Results Component Value Date MG 1.8 03/16/2014 Phosphorus: Lab Results Component Value Date PHOS 3.0 03/16/2014 PT/INR: Lab Results Component Value Date INR 0.9 02/08/2014 PTT: Lab Results Component Value Date APTT 25 02/08/2014 [APTT Scheduled Medications allopurinol 100 mg Oral Daily amLODIPine 10 mg Oral Daily carvedilol 3.125 mg Oral BID WC cholecalciferol 2,000 Units Oral Daily epoetin alena 4,000 Units Intravenous QMWF fluticasone-salmeterol 1 puff Inhalation BID levofloxacin 500 mg Intravenous Q48H levothyroxine 75 mcg Oral QAM AC montelukast 10 mg Oral Nightly sevelamer 2,400 mg Oral TID WC sodium bicarbonate 1,300 mg Oral BID vancomycin (VANCOCIN) IVPB < 1 G 750 mg Intravenous See Admin Instructions vitamin B ebfiwsy-Q-bafjf acid 1 tablet Oral Daily Continuous Infusions PRN Medications acetaminophen, acetaminophen, albumin human, albuterol, albuterol, loperamide, ondansetron, ondansetron, polyethylene glycol, sevelamer, sodium chloride PROBLEM LIST Principal Problem: Pneumonia, organism unspecified Active Problems: Secondary hyperparathyroidism (of renal origin) Diabetes mellitus with ESRD (end-stage renal disease) HTN (hypertension) ESRD (end stage renal disease) on dialysis Anemia of chronic kidney failure Gram-positive cocci bacteremia Douglas Stevenson MD 03/19/201412:36 PM onversion Transaction, Provider Unknown - 03/19/2014 12:19 PM PDTFormatting of this note might be different from e original. Case Management by Dennis Velasquez RN at 03/19/14 4026 Author: Dennis Velasquez RN Service: (none) Author Type: Watchguard Filed: 03/19/14 6639 Date of Service: 03/19/149 Status: Signed Regional Clinical Director: Dennis Velasquez RN (Watchguard) Discharge Planning: Vancomycin Rx faxed to [facility] Saldivar,([phone])also progress no trixie, and lab work as requested. Sean Willis MD - 03/19/2014 10:28 AM PDTFormatting of this note might be different from the o riginal. Progress Notes by Sean Reid MD at 03/19/14 1028 Author: Sean Reid MD Service: Nephrology Author Type: Physician Filed: 03/19/14 1336 Date of Service: 03/19/14 1028 Status: Signed Regional Clinical Director: Sean Reid MD (Physician) [facility] Service: NEPHROLOGY Progress Note Carol Potter 48 y.o. [id number] male [facility] Day: LOS: 4 days SUBJECTIVE .CHIEF COMPLAINT: I had fever HISTORY OF PRESENT ILLNESS: Carol Potter is a 48 y.o. male with Significant PMH of ESRD secondary to Biopsy-proven Diabet ic nephropathy who is dialyzed Saturday and Saturday at [place] dialysis unit via Le ft upper extremity brachio cephalic fistula , DM2 , Secondary hyperparathyroidism , Anemia o f chronic renal failure ,Treated with IV antibiotics for endocarditis in the past. Clotted A VF 11/04 when hospitalized at [facility] and had tunneled catheter placed. Right upper extremity bra chiocephalic fistula by Dr. Meyer 02/04, Presented with fever at the dialysis unit and complain ed of not feeling well for the past 2-3 days with cough, diffuse body aches. Indicated one o f his granddaughters being sick with a mild infection which resolved. Sent to [facility] after completion of his dialysis treatment where he was felt to have pneumonia with leukocytosis and infiltrate seen on the chest x-ray. MAXIMUM TEMPERA TURE noted to be 1 or 2.5. Started on intravenous Levaquin after blood cultures were drawn. Staph aureus bacteremia. 4 out of 4 bottles, Actually left (after review of X ray from [facility] ec) lower lobe pneumonia, most likely bacterial: Most likely source of bacteremia is his Per mCath. We'll continue Levaquin for now. Follow blood cultures. Continue with vancomycin in d ialysis Otherwise hemodynamically stable. Rapid flu testing 03/15 negative. Nephrology was consulted for evaluation and management of ESRD management. PMH, PSH, Social history, allergies, medications reviewed. ADMITTED WITH Pneumonia, organism unspecified Patient is feeling better, denies any nausea vomiting diarrhea or fever is at the bedside. 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 Neuromuscular disorder neuropathy Hyperkalemia 11/09/2013 Chronic obstructive asthma with exacerbation 10/27/2013 SOB (shortness of breath) 10/27/2013 Past Surgical History Procedure Laterality Date Colonoscopy with egd 05/01/2012 Procedure: COLONOSCOPY W/ EGD; Surgeon: John Singleton MD; Location: [facility] ENDOSCOPY; Se rvice: Gastroenterology; Laterality: N/A; Av fistula placement 05/06/2012 Procedure: AV FISTULA; Surgeon: Oskar Meyer MD; Location: [facility] MAIN OR; Service: Vascul ar; Laterality: Left; Left arm possible right Unlisted procedure arthroscopy shoulder rt , ligaments Knee arthroscopy 07/07/2012 Procedure: KNEE - ARTHROSCOPY; Surgeon: Favio Raza MD; Location: [facility] MAIN OR; S ervice: Orthopedics; Laterality: Right; After 1530 Catheter removal 07/07/2012 Procedure: DIALYSIS CATHETER REMOVAL; Surgeon: Oskar Meyer MD; Location: [facility] BEDSIDE FL OCEDURE; Service: General; Laterality: Right; perm cath Dialysis fistula creation 07/07/2012 Procedure: DIALYSIS CATHETER INSERTION; Surgeon: Oskar Meyer MD; Location: [facility] BEDSIDE PROCEDURE; Service: General; Laterality: Left; temporary dialysis catheter Av fistula repair 07/11/2012 Procedure: AV FISTULA GRAFT REPAIR/REVISION; Surgeon: Oskar Meyer MD; Location: [facility] OR; Service: Vascular; Laterality: Left; Superficialization of brachiobasilic fistula and right IJ perm cath insertion Dialysis fistula creation 07/11/2012 Procedure: DIALYSIS CATHETER INSERTION; Surgeon: Oskar Meyer MD; Location: [facility] MAIN OR; Service: Vascular; Laterality: Left; removed dialysis catheter from left neck and placed new on in left chest, attempted in right neck but unable to place Av fistula placement Right 02/09/2014 Procedure: AV FISTULA; Surgeon: Oskar Meyer MD; Location: [facility] MAIN OR; Service: Vascul ar; Laterality: Right; History Social History Marital Status: Spouse Name: [...] KIDS. CURRENTLY UNEMPLOYED, BEFOR E WORKED AT [employer] IN [place]. Quit METHAMPHETAMINES PER PATIENT after t he ARF in mar 2012. FATHER HAS COLON CANCER, HEART DISEASE, MOTHER 15 YEARS AGO. NO FH KIDNEY PROBLEMS. Family History Problem Relation Age of Onset Heart disease Mother Heart disease Father Diabetes Father Cancer Father colon cancer Scheduled Medications allopurinol 100 mg Oral Daily amLODIPine 10 mg Oral Daily carvedilol 3.125 mg Oral BID WC cholecalciferol 2,000 Units Oral Daily epoetin alena 4,000 Units Intravenous QMWF fluticasone-salmeterol 1 puff Inhalation BID heparin (porcine) Intracatheter Once in dialysis levofloxacin 500 mg Intravenous Q48H levothyroxine 75 mcg Oral QAM AC montelukast 10 mg Oral Nightly sevelamer 2,400 mg Oral TID WC sodium bicarbonate 1,300 mg Oral BID vancomycin (VANCOCIN) IVPB < 1 G 750 mg Intravenous See Admin Instructions vitamin B mppdcsf-G-glzkc acid 1 tablet Oral Daily Continuous Infusions PRN Medications acetaminophen, acetaminophen, albumin human, albuterol, albuterol, loperamide, ondansetron, ondansetron, polyethylene glycol, sevelamer, sodium chloride Allergy: Allergies Allergen Reactions Lisinopril Other (See Comments) "makes me sweat and knocked me out" Penicillins Other (See Comments) Unknown 4/17/13: Patient tolerated Ceftriaxone during previous admissions. OBJECTIVE Vital Signs: BP 137/80 | Pulse 80 | Temp(Src) 98 F (36.7 C) (Oral) | Resp 18 | Ht 1.702 m (5' 7") | Wt 72.5 kg (159 lb 13.3 oz) | BMI 25.03 kg/m2 | SpO2 100% I&O Detailed Table: I/O last 3 completed shifts: In: 1550 [P.O.:1105; I.V.:445] Out: 650 [Urine:650] Weight change: Hemodynamics Last 24hrs: Examination: Constitutional: Alert and oriented to person, place, and time. Appears well-developed and well-nourished. HEENT: Neck supple, no JVD, non icteric sclera. Cardiovascular: S1+ S2 no friction rub. LUNGS:: Clear breath sounds bilaterally, no wheezes and no rales. Abdominal: Soft, non tender on palpation, No distension and no mass. There is no rebound t enderness and no guarding. Musculoskeletal: No gross deformity, EXT: No pedal edema and pulses are palpable. Neurological: No gross focal motor neurologic deficits. Skin: Skin is warm and dry. No rashes, lacerations, erythema or jaundice. Psychiatric: AXOX3, mood and affect ok, memory seems to be intact. Lymph Nodes: Not Palpable HD ACCESS: LIJ PERMACATH IN USE Clotted AVF 11/04 when hospitalized at [facility] and had tunneled catheter placed. Right upper extremity brachiocephalic fistula by Dr. Meyer 02/04 LABS: IRON: Lab Results Component Value Date IRON 40* 09/10/2012 Lab Results Component Value Date FERRITIN 933* 09/10/2012 LABIRON 35 09/10/2012 CBC: Lab Results Component Value Date WBC 9.2 03/19/2014 RBC 3.50* 03/19/2014 HGB 10.6* 03/19/2014 HCT 31.2* 03/19/2014 MCV 89.1 03/19/2014 MCH 30.2 03/19/2014 MCHC 33.9 03/19/2014 RDW 47.7 03/19/2014 PLT 131* 03/19/2014 MPV 8.6 03/19/2014 DIFFTYPE AUTOMATED 03/19/2014 CMP: Lab Results Component Value Date NA 128* 03/19/2014 K 3.6 03/19/2014 CL 94* 03/19/2014 CO2 23 03/19/2014 ANIONGAP 15 03/19/2014 GLUF 127* 03/19/2014 BUN 49* 03/19/2014 CREATININE 7.33* 03/19/2014 BCR 7 03/19/2014 CA 8.6 03/19/2014 CA 6.1* 04/02/2012 PROT 6.0* 11/10/2013 ALB 3.5* 11/10/2013 GLOB 2.5 11/10/2013 BILITOT 0.6 11/10/2013 ALP 122* 11/10/2013 AST 18 11/10/2013 ALT 22 11/10/2013 EGFR 8* 03/19/2014 Magnesium: Lab Results Component Value Date MG 1.8 03/16/2014 Phosphorus: Lab Results Component Value Date PHOS 3.0 03/16/2014 PT/INR: Lab Results Component Value Date INR 0.9 02/08/2014 Troponin: Lab Results Component Value Date TROPONINI <0.02 10/10/2012 Lab Results Component Value Date PTHINTACT 255* 04/02/2012 [id number] <12* 04/02/2012 Lab Results Component Value Date TSH 8.41* 09/11/2012 TSH 7.30* 07/06/2012 TSH 16.60* 04/03/2012 Lab Results Component Value Date URICACID 8.2 04/02/2012 Lab Results Component Value Date HGBA1C 5.8 11/10/2013 HGBA1C UNABLE TO CALCULATE 09/11/2012 HGBA1C 6.0 05/14/2012 IMAGING X-ray Chest 1 View 03/18/2014 CAROL POTTER 1965 48 years XR CHEST 1 VIEW 03/18/2014 5:55 AM INDICATION: Pne umlinefork COMPARISON: October 27, 2013 TECHNIQUE: Chest 1 view, AP view of the chest 03/18/2014 FINDINGS/ IMPRESSION: Left central venous catheter tip within the right atrium . No pneumothorax, no pleural effusion. Left lower lobe consolidation consistent with pneu monia or aspiration. No acute osseous abnormality. LEM LIST Principal Problem: Pneumonia, organism unspecified Active Problems: Secondary hyperparathyroidism (of renal origin) Diabetes mellitus with ESRD (end-stage renal disease) HTN (hypertension) ESRD (end stage renal disease) on dialysis Anemia of chronic kidney failure Gram-positive cocci bacteremia ASSESSMENT & PLAN [facility] [place] [facility] HD ACCESS: DEBORAH ARTEAGA IN USE Clotted AVF 11/04 when hospitalized at [facility] and had tunneled catheter placed. Right upper extremity brachiocephalic fistula by Dr. Meyer 02/04 Hypertension reasonably controlled, compliant with and no side effects from Coreg, amlodipine BP Readings from Last 3 Encounters: 03/19/14 143/77 02/09/14 115/60 02/09/14 115/60 Mild hyponatremia in ESRD with acute respiratory infection and some degree of volume overload (noted non oliguric sta te). Lab Results Component Value Date NA 128* 03/19/2014 NA 127* 03/18/2014 NA 127* 03/17/2014 Mild hypoalbuminemia, Needs to eat more protein stable. Secondary hyperparathyroidism. PTH followed in the outpatient dialysis unit. On renvela. Anemia of chronic renal failure, stable. Lab Results Component Value Date HGB 10.6* 03/19/2014 HGB 9.8* 03/18/2014 HGB 10.6* 03/17/2014 FERRITIN 933* 09/10/2012 FERRITIN 245.0 04/28/2012 FERRITIN 139 04/02/2012 LABIRON 35 09/10/2012 LABIRON 20 04/28/2012 LABIRON 38 04/02/2012 Noted mild thrombocytopenia. Stable without any overt bleeding. Bronchitis/pneumonia improved on levofloxacin. Leukocytosis resolved. Afebrile. BACTEREMIA: blood cultures from [place] positive for gram-positive cocci in 4 bottles. MSSA Started on vancomycin By ID On long-term doxycycline.?? For skin lesions 2-3 years ago TOLERATING HD WELL Discussed with Dr. Stevenson, awaiting for the last blood culture report Discussed with Dr. Zimmerman, will arrange for vancomycin 750 mg during hemodialysis 3 times a week until then 11/10/2013 at chronic hemodialysis unit in [place], I have already infor med the nurse there. Tolerating hemodialysis well Discussed with his SEAN REID MD 03/19/2014 Elsie Hsu S - 03/19/2014 9:05 AM PDTFormatting of this note might be different from the betina dasia. Progress Notes by Elsie Sharma MD at 03/19/14904 Author: Elsie Sharma MD Service: Infectious Disease Author Type: Physician Filed: 03/19/14927 Date of Service: 03/19/14904 Status: Addendum Regional Clinical Director: Elsie Sharma MD (Physician) Related Notes: Original Note by Elsie Sharma MD (Physician) filed at 03/19/14919 [facility] Service: Infectious Disease Progress Note Hospital Day: LOS: 4 days Post-Op Day: * No surgery found * SUBJECTIVE Patient Summary: The patient is a 48 y.o. male with significant past medical history of diabetic nephropathy, end-stage renal disease on dialysis, previous history of multiple episodes of bacteremia [with Staphylococcus aureus, MSSA, Streptococcus anginosus] , right k nee septic arthritis, completed at least 3 different courses of intravenous antibiotics foll owed by oral doxycycline which he completed in April 2013, last visit with infectious dis ease in November 2012, multiple skin lesions thought to be secondary to long-term dialysis; pres ented to [facility] on 03/14 with symptoms of cough, chills, myalgias, fevers. Nik birch was thought to have pneumonia, possible septicemia. Cultures were drawn and he was s tarted on vancomycin and Zosyn and levofloxacin. He was then shift to [facility] for further ma nagement. Recently had right arm brachial basilic fistula creation in January 2014. Blood cultures drawn at [facility] prior to transfer now showing gram-positive cocci in 2 out of 2 sets. Patient has been on levofloxacin for presumably pneumonia. Currently giv en one dose of vancomycin. Infectious disease consulted. Patient is a poor historian and gives different options and they have requesting. It appea rs that he was sick over the weekend feeling cold, and having body aches. Unclear if he rec eived any doses of prednisone-according to patient was given some prednisone which helped re lieve the symptoms. On Saturday morning when he presented to dialysis he did well until about the last half an hour-when he started having violent chills and fever. It was then that clarence madrid had cultures drawn, antibiotics given and shifted initially to [facility] and then subsequently here. His medication at presentation includes doxycycline-unclear if he has continued to remain o n this-was due to complete this in April as per last infectious disease note. However he has not followed up with ID since November 2012. Events Overnight: Blood culture growth from [facility] is MSSA in 4 out o f 4 bottles. The patient has been afebrile and states he is feeling better and wants to go home. He had cough, which she states improved. He denies pleurisy or dyspnea. He has no a bdominal pain or diarrhea. He has no new skin rashes. Scheduled Medications allopurinol 100 mg Oral Daily amLODIPine 10 mg Oral Daily carvedilol 3.125 mg Oral BID WC cholecalciferol 2,000 Units Oral Daily epoetin alena 4,000 Units Intravenous QMWF fluticasone-salmeterol 1 puff Inhalation BID heparin (porcine) Intracatheter Once in dialysis levofloxacin 500 mg Intravenous Q48H levothyroxine 75 mcg Oral QAM AC montelukast 10 mg Oral Nightly sevelamer 2,400 mg Oral TID WC sodium bicarbonate 1,300 mg Oral BID vancomycin (VANCOCIN) IVPB < 1 G 750 mg Intravenous See Admin Instructions vitamin B rudbajl-K-xltiz acid 1 tablet Oral Daily Continuous Infusions PRN Medications acetaminophen, acetaminophen, albumin human, albuterol, albuterol, loperamide, ondansetron, ondansetron, polyethylene glycol, sevelamer, sodium chloride OBJECTIVE Vital Signs: BP 135/70 | Pulse 80 | Temp(Src) 98 F (36.7 C) (Oral) | Resp 18 | Ht 1.702 m (5' 7") | Wt 72.5 kg (159 lb 13.3 oz) | BMI 25.03 kg/m2 | SpO2 100% Temp: [98 F (36.7 C)-98.6 F (37 C)] 98 F (36.7 C) (03/19 744) BP: (93-151)/(54-81) 135/70 mmHg (03/19 09) Heart Rate: [75-88] 80 (03/19 07) Resp: [17-20] 18 (03/19 744) SpO2: [96 %-100 %] 100 % (03/19 0744) Weight: [72.5 kg (159 lb 13.3 oz)] 72.5 kg (159 lb 13.3 oz) (03/19 034) Physical Exam Vital signs have been reviewed Gen.: Currently undergoing hemodialysis; in good spirits and appears comfortable HEENT: Anicteric sclerae, no conjunctival petechiae, no oral thrush, supple neck Left IJ hemodialysis catheter site noted Lungs: No rales, wheezes or rhonchi noted Cardiovascular: Regular rate and rhythm, no appreciable murmur or rubs Abdomen: Soft, no tenderness Skin: Much improved. Some dryness is noted Neurologic: Oriented 3, no focal weakness or numbness Right upper extremity AV fistula with good thrill, no erythema or tenderness DATA CBC: Lab Results Component Value Date WBC 9.2 03/19/2014 RBC 3.50* 03/19/2014 HGB 10.6* 03/19/2014 HCT 31.2* 03/19/2014 MCV 89.1 03/19/2014 MCH 30.2 03/19/2014 MCHC 33.9 03/19/2014 RDW 47.7 03/19/2014 PLT 131* 03/19/2014 MPV 8.6 03/19/2014 DIFFTYPE AUTOMATED 03/19/2014 WBC: Lab Results Component Value Date WBC 9.2 03/19/2014 NEUTABSMAN 7.0 03/18/2014 NEUTROABS 6.6 03/19/2014 NEUTROMAN 78 03/18/2014 LYMPHOABS 0.6* 03/18/2014 LYMPHOMAN 7 03/18/2014 LYMPHSABS 1.1 03/19/2014 LYMPHOPCT 11.9 03/19/2014 MONOABSMAN 1.3* 03/18/2014 MONOMAN 14 03/18/2014 MONOPCT 14.2 03/19/2014 EOSINOABS 0.2 07/06/2012 EOSINOMAN 1 07/06/2012 EOSABS 0.1 03/19/2014 EOSPCT 1.0 03/19/2014 BASOABSMAN 0.1 05/01/2012 BASOSABS 0.1 03/19/2014 BASOSMAN 1 05/01/2012 BASOPCT 0.6 03/19/2014 PLTEST ADEQUATE 11/09/2013 BANDSPCT 1 03/18/2014 NRBC 1* 05/02/2012 METAABS 0.1* 03/17/2014 METAPCT 1 03/17/2014 COMDIFF SLIDE SCANNED, AGREES WITH AUTOMATED RESULTS. 11/09/2013 CMP: Lab Results Component Value Date NA 128* 03/19/2014 K 3.6 03/19/2014 CL 94* 03/19/2014 CO2 23 03/19/2014 ANIONGAP 15 03/19/2014 GLUF 127* 03/19/2014 BUN 49* 03/19/2014 CREATININE 7.33* 03/19/2014 BCR 7 03/19/2014 CA 8.6 03/19/2014 CA 6.1* 04/02/2012 PROT 6.0* 11/10/2013 ALB 3.5* 11/10/2013 GLOB 2.5 11/10/2013 BILITOT 0.6 11/10/2013 ALP 122* 11/10/2013 AST 18 11/10/2013 ALT 22 11/10/2013 EGFR 8* 03/19/2014 Microbiology Results Blood Culture Set 2 [[id number]] Collected: 03/17/14 1354 Order Status: Completed Updated: 03/19/14 0628 Specimen Information: Blood / Blood Specimen Description BLOOD, PERIPHERAL DRAW SPECIAL REQUESTS L HAND SPECIAL REQUESTS Result: Testing performed at [facility];[address] [place] [id number] CULTURE NO GROWTH CULTURE Result: Testing performed at [facility], [address] [place] [id number] Blood Culture Set 1 [[id number]] (Abnormal) Collected: 03/17/14 1351 Order Status: Completed Updated: 03/18/14 1621 Specimen Information: Blood / Blood Line Draw Specimen Description BLOOD, LINE DRAW SPECIAL REQUESTS DIAL.LINE SPECIAL REQUESTS Result: Testing performed at [facility];[address] [place] [id number] GRAM STAIN GRAM-POSITIVE COCCUS (A) GRAM STAIN SEEN IN AEROBIC BOTTLE GRAM STAIN SMEAR RESULTS CALLED TO AND READ BACK BY: GRAM ANNIE Mratinez IN 6RP ON 03/18/14 AT 1620 [employer] CULTURE WORK UP IN PROGRESS AT [facility] CULTURE FINDING OF ORGANISM GROWTH (A) CULTURE TIME TO DETECTION: CULTURE 0.95 DAYS CULTURE Result: Testing performed at [facility], [address] [place] [address] Rapid FLU A and B [[id number]] Collected: 03/15/142056 Negative for Influenzae Type A and Type B antigen by [facility] Results (last 7 days) Impression: FINDINGS/ IMPRESSION: Left central venous catheter tip within the right atrium. No pneumothorax, no pleural effusion. Left lower lobe consolidation consistent with pneumonia or aspiration. No acute osseous abnormality. LEM LIST Principal Problem: Pneumonia, organism unspecified Active Problems: Secondary hyperparathyroidism (of renal origin) Diabetes mellitus with ESRD (end-stage renal disease) HTN (hypertension) ESRD (end stage renal disease) on dialysis Anemia of chronic kidney failure Gram-positive cocci bacteremia ASSESSMENT & PLAN Septicemia From Dr. Tello's note: Previous history has been with MSSA and Streptococcus anginosus. It appears that patient has received multiple courses of antibiotics for recurrent bacterem ia. Was advised to stay on oral doxycycline for a few months-which he should have completed in April. However he is on doxycycline at present-appears to have continued long-term-d iscontinued yesterday Previously, source of bacteremia has never been found-thought to be skin as he had multiple excoriations-at present he has none of these. Previous RONY 2 have not shown any vegetation. Fever with bacteremia: Blood cultures at [facility] are now identified as MSSA in 4 out of 4 bottles. 03/17 blood culture has GPC from dialysis line draw, so source of bacteremia/sepsis is the l ine Patient is doing clinically better, afebrile with normal WBC. No new murmur on exam to sugg est infective endocarditis. I have discussed replacing the dialysis catheter with Dr. Reid from Nephrology; she recomm ends keeping the HD catheter. Patient is supposed to follow up with Dr. Oskar Meyer about his R UE AVF. If blood cultures from 03/18 remain negative tomorrow, he will be cautiously discharged on I V vancomycin 750 mg for 4 weeks to be given with hemodialysis with plan for ID follow up scarlett ry 2 weeks and surveillance blood cultures after completing IV antibiotic therapy. Social w ork consulted for IV vancomycin to be set up with dialysis. Orders in EPIC and paper chart. Pneumonia Patient was thought to have pneumonia and started on levofloxacin Repeat chest x-ray yesterday shows left lower lobe consolidation consistent with pneumonia Patient on levofloxacin 500 mg q 48, day 5 of 10 End-stage renal disease on dialysis Antibiotic dosing as above Case discussed with Dr. Reid, Dr. Stevenson, Pharmacy and Social Work Code Status: Full Code ELSIE SHARMA MD 03/19/2014 onversion Transact ion, Provider Unknown - 03/18/2014 2:38 PM PDTFormatting of this note might be different fr om the original. Case Management by Dennis Velasquez RN at 03/18/14 1438 Author: Dennis Velasquez RN Service: (none) Author Type: Watchguard Filed: 03/18/14 1439 Date of Service: 03/18/14 143 Status: Signed Regional Clinical Director: Dennis Velasquez RN (Watchguard) Food voucher given to pt's . Explained that this is a one time occurrence and we were u nable to give any additional vouchers to them. indicated understanding. She indicated she had been told that before as well. Douglas Abraham MD - 03/18/2014 1:51 PM PDTFormatting of this note might be different from the origi nal. Progress Notes by Douglas Stevenson MD at 03/18/14 1351 Author: Douglas Stevenson MD Service: (none) Author Type: Physician Filed: 03/18/14 1352 Date of Service: 03/18/14 1351 Status: Signed Regional Clinical Director: Douglas Stevenson MD (Physician) [facility] Service: Hospitalist Progress Note Hospital Day: LOS: 3 days Consultants: Treatment Team: Consulting Physician: Kisha Tello MD Consulting Physician: Oskar Meyer MD Consulting Physician: Cosmo Soria MD Admitting Provider: Paulie Mcgarry MD The first problem in assessment is the principal problem. ASSESSMENT/ PLAN 1. Staph aureus bacteremia. 4 out of 4 bottles, Actually left (after review of X ray from [facility]) lower lobe pneumonia, most likely bacterial: Most likely source of bacteremia is his PermCath. We'll continue Levaquin for now. Follow blood cultures. Continue with vancomycin in dialysis Discussed with nephrology also and ID. 2. ESRD, on hemodialysis Discussed with nephrology . 03/18. Continue chronic management . 3. Hypertension, chronic stable. Continue home medications 4. Diabetes mellitus continue with insulin . Current regimen. 5. Thrombocytopenia :Most likely due to sepsis. Follow-up closely . Telemetry: Not Required. Newman: Not Required. DVT: On SCd due to above. Disposition: home Pending above . Code Status: Full Code Dictation and ball mill mixer or software, ebindle, used which may contain error for similar s ounding words even after review. Personal communication requested for any clarification. SUBJECTIVE Events Overnight: *Patient does not have any complaints at all again. Denies any cough, sh ortness of breath, nausea, vomiting, diarrhea. . OBJECTIVE Vital Signs: BP 93/55 | Pulse 78 | Temp(Src) 98.6 F (37 C) (Oral) | Resp 20 | Ht 1.702 m (5' 7") | W t 71.9 kg (158 lb 8.2 oz) | BMI 24.82 kg/m2 | SpO2 96% Filed Vitals: 03/17/14 2346 03/18/14 0300 03/18/14 0744 03/18/14 1209 BP: 121/57 105/57 99/57 93/55 Pulse: 79 85 88 78 Temp: 97.5 F (36.4 C) 98.2 F (36.8 C) 98.3 F (36.8 C) 98.6 F (37 C) TempSrc: Oral Oral Oral Oral Resp: 17 18 19 20 Height: Weight: SpO2: 98% 97% 98% 96% Intake/Output Summary (Last 24 hours) at 03/18/14 1351 Last data filed at 03/18/14 0546 Gross per 24 hour Intake 2950 ml Output 4000 ml Net -1050 ml General: Well nourished. Psych: Alert and oriented x 3. Calm, cooperative. Cardiovascular: left-sided tunnel catheter . Regular rate and rhythm, no murmurs, no thril ls. Normal PMI. Respiratory: Clear to auscultation, no wheezing or crackles, breathing non labored. Gastrointestinal: Soft, non-tender, non-distended, positive bowel sounds. No HSM. Musculoskeletal: right-sided AV fistula has a bruit No edema in bilateral lower extremitie s. No joint swelling. Skin: Warm and dry, no rashes. Neck: No JVD, Trachea midline. Neurological: Non focal. Motor grossly intact. DATA CBC: Lab Results Component Value Date WBC 9.0 03/18/2014 RBC 3.28* 03/18/2014 HGB 9.8* 03/18/2014 HCT 29.6* 03/18/2014 MCV 90.2 03/18/2014 MCH 29.8 03/18/2014 MCHC 33.1 03/18/2014 RDW 47.3 03/18/2014 PLT 93* 03/18/2014 MPV 8.9 03/18/2014 DIFFTYPE MANUAL 03/18/2014 CMP: Lab Results Component Value Date NA 127* 03/18/2014 K 3.5 03/18/2014 CL 93* 03/18/2014 CO2 27 03/18/2014 ANIONGAP 11 03/18/2014 GLUF 123* 03/18/2014 BUN 31* 03/18/2014 CREATININE 5.28* 03/18/2014 BCR 6 03/18/2014 CA 7.8* 03/18/2014 CA 6.1* 04/02/2012 PROT 6.0* 11/10/2013 ALB 3.5* 11/10/2013 GLOB 2.5 11/10/2013 BILITOT 0.6 11/10/2013 ALP 122* 11/10/2013 AST 18 11/10/2013 ALT 22 11/10/2013 EGFR 12* 03/18/2014 Magnesium: Lab Results Component Value Date MG 1.8 03/16/2014 Phosphorus: Lab Results Component Value Date PHOS 3.0 03/16/2014 PT/INR: Lab Results Component Value Date INR 0.9 02/08/2014 PTT: Lab Results Component Value Date APTT 25 02/08/2014 [APTT Scheduled Medications allopurinol 100 mg Oral Daily amLODIPine 10 mg Oral Daily carvedilol 3.125 mg Oral BID WC cholecalciferol 2,000 Units Oral Daily epoetin alena 4,000 Units Intravenous QMWF fluticasone-salmeterol 1 puff Inhalation BID levofloxacin 500 mg Intravenous Q48H levothyroxine 75 mcg Oral QAM AC montelukast 10 mg Oral Nightly sevelamer 2,400 mg Oral TID WC sodium bicarbonate 1,300 mg Oral BID vancomycin (VANCOCIN) IVPB < 1 G 750 mg Intravenous See Admin Instructions vitamin B iftjlqm-P-bmulg acid 1 tablet Oral Daily Continuous Infusions PRN Medications acetaminophen, acetaminophen, albumin human, albuterol, albuterol, loperamide, ondansetron, ondansetron, polyethylene glycol, sevelamer, sodium chloride PROBLEM LIST Principal Problem: Pneumonia, organism unspecified Active Problems: Secondary hyperparathyroidism (of renal origin) Diabetes mellitus with ESRD (end-stage renal disease) HTN (hypertension) ESRD (end stage renal disease) on dialysis Anemia of chronic kidney failure Gram-positive cocci bacteremia Douglas Stevenson MD 03/18/20141:51 PM onversion Transaction, Provider Unknown - 03/18/2014 11:57 AM PDTFormatting of this note might be different from rodrigo ramires. Progress Notes by Curtis Victoria RPH at 03/18/14 2304 Author: Curtis Victoria RPH Service: (none) Author Type: Pharmacist Filed: 03/18/14 5718 Date of Service: 03/18/141156 Status: Signed Regional Clinical Director: Curtis Victoria RPH (Pharmacist) Initiation of Vancomycin Pharmacy Dosing Carol Potter 48 y.o. male 1.702 m (5' 7") 71.9 kg (158 lb 8.2 oz) Body mass index is 24.82 kg/(m^2). Elton Body Weight: Adjusted Body Weight: CREATININE Date Value Range Status 03/18/2014 5.28* 0.70 - 1.30 mg/dL Final Testing performed at [facility], [address] [place] [address] Estimated CrCl : CREATININE: 5.28 mg/dL ABNORMAL (03/18/14 0433) Estimated creatinine clearance - 15.6 mL/min Indications: empiric Dose per Protocol: Vanco dialysis protocol- 1.5g vanco load then pt will get 750mg IV in last hour of each ratna lysis. First Dose to be Given: 03/17 Pharmacist: CURTIS VICTORIA 03/18/2014 11:53 AM Cosmo Lang MD - 03/18/2014 11:43 AM PDTFormatting of this note might be different from the or iginal. Progress Notes by Cosmo Soria MD at 03/18/14 1143 Author: Cosmo Soria MD Service: Nephrology Author Type: Physician Filed: 03/18/14 1152 Date of Service: 03/18/14 114 Status: Signed Regional Clinical Director: Cosmo Soria MD (Physician) PCP : [facility] LOS: 3 days Carol Potter is a 48 y.o. 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 Clotted AVF 11/04 when hospitalized at [facility] and had tunneled catheter placed. Right upper extremity brachiocephalic fistula by Dr. Meyer 02/04 Interval history: Carol Potter feels 'good' today. Overnight events: Discharge held with the report of blood cultures from [facility] positive for g maame-positive cocci in all [address] Tello today. No fever, chills sweats. No nausea, vomiting or diarrhea. No shortness of breath, chest pain, cough. ROS: As in History of Present Illness. 7 area ROS was done and was otherwise negative. Examination: Constitutional: Alert awake and oriented. Sitting comfortably in chair. HEENT: No JVD, non icteric sclera. Cardiovascular: S1soft. No friction rub. No S3. No murmur. LUNGS:: Minimal basal rales . Abdominal: Soft with minimal epigastric tenderness. No distension and no mass. There is no rebound tenderness and no guarding. EXT: B/L LE with chronic venous changes. distal lower extremity pulses not palpable Neurological: No gross focal motor neurologic deficits. Normal sensorium. Speech fluent. Ga it not tested. Moves all 4 extremities equally. Skin: Skin is warm and dry. Hemodialysis access: Left upper extremity brachiocephalic fistula, clotted Right UE brachiocephalic AVF with bruit. Left IJ tunneled catheter. The following portions of the patient's history were reviewed and updated as appropriate: l aboratory data, radiologic studies, allergies, current medications, and problem list. Past m edical, surgical, social, and family history was also reviewed. Past history summarized as a iesha. Scheduled Medications Reviewed. Continuous Infusions Reviewed. Vital Signs: BP 99/57 | Pulse 88 | Temp(Src) 98.3 F (36.8 C) (Oral) | Resp 19 | Ht 1.702 m (5' 7") | Wt 71.9 kg (158 lb 8.2 oz) | BMI 24.82 kg/m2 | SpO2 98% I&O Detailed Table: I/O last 3 completed shifts: In: 3320 [P.O.:875; I.V.:445; Other:2000] Out: 4000 [Other:4000] Weight change: Hemodynamics Last 24hrs: Assessment and Recommendations: Mr. Potter is a 48 y.o. male patient with ESRD secondary to biopsy proven Diabetic nephropathy who is dialyzed Saturday and Saturday at [place] dialysis unit using left IJ tunnel ed dialysis catheter (last HD 03/15/14). His primary corporate administrator is Dr. Timmons. Currently admitted with fever ? Pneumonia. HTN: Anemia of chronic renal disease History of gout Hypoalbuminemia with diabetic nephropathy and nephrotic syndrome Secondary hyperparathyroidism Lab data evaluation: Lab Results Component Value Date BUN 31* 03/18/2014 CREATININE 5.28* 03/18/2014 EGFR 12* 03/18/2014 NA 127* 03/18/2014 K 3.5 03/18/2014 CL 93* 03/18/2014 CO2 27 03/18/2014 CA 7.8* 03/18/2014 PHOS 3.0 03/16/2014 MG 1.8 03/16/2014 ALB 3.5* 11/10/2013 HGB 9.8* 03/18/2014 03/17/14 Uncomplicated dialysis. 03/18/14 Assessment: ESRD stable. Access working OK. Uncomplicated dialysis yesterday. Hypertension reasonably controlled, compliant with and no side effects from Coreg, amlodipi ne Clinically minimally volume overloaded with no lower extremity edema, + JVD, no pleural eff usion, minimal basal rales, no orthopnea. Ca, PO4, Mg, target range. K Ok. Mild hyponatremia in ESRD with acute respiratory infection and some degree of volume overlo ad (noted non oliguric state). Mild hypoalbuminemia, stable. Secondary hyperparathyroidism. PTH followed in the outpatient dialysis unit. On renvela. Anemia of chronic renal failure, stable. No overt bleeding. Noted mild thrombocytopenia. Stable without any overt bleeding. Bronchitis/pneumonia improved on levofloxacin. Leukocytosis resolved. Afebrile. However blood cultures from [facility] positive for gram-positive cocci in 4 bottles. Started on vancomycin again. Seen by Dr. Tello 03/18, reviewed and discussed with her. Repeat chest x-ray 03/18, reviewed by myself, consistent with some degree of left base atelectasis/consoli dation. On long-term doxycycline. Recommendations: Continue vancomycin until final culture results are obtained. Continue Coreg and amlodipine and current dose. Continue Renvela in current dose for secondary hyperparathyroidism along with vitamin D rep lacement Needs follow-up with Dr. Meyer for slow maturation of right upper extremity AV fistula Continue maintenance hemodialysis using left IJ tunneled dialysis catheter on a Saturday, Sat, Saturday schedule with vancomycin postdialysis until definitive culture results are ob tained. Carol Potter should be on a 2 gm [...] hr period. Strict I/O should be done. COSMO SORIA MD 03/18/[address] Stevenson. Seen earlier in the day and charting completed later after rounds. Dictation software, ebindle, used which may contain error for similar sounding words. Personal communication requested for any clarification. Prognosis guarded in view of multiple comorbid illnesses and ESRD Dr. Reid will assume nephrology care as of 5 pm tonight Kisha Adamson MD - 03/18/2014 11:33 AM PDT Progress Notes by Kisha Tello MD at 03/18/14 6552 Author: Kisha Tello MD Service: (none) Author Type: Physician Filed: 03/18/14 8089 Date of Service: 03/18/14 1133 Status: Signed Regional Clinical Director: Kisha Tello MD (Physician) [facility] Service: Infectious Disease Progress Note Hospital Day: LOS: 3 days Post-Op Day: * No surgery found * SUBJECTIVE Patient Summary: The patient is a 48 y.o. male with significant past medical history of diabetic nephropathy, end-stage renal disease on dialysis, previous history of multiple episodes of bacteremia [with Staphylococcus aureus, MSSA, Streptococcus anginosus] , right k nee septic arthritis, completed at least 3 different courses of intravenous antibiotics foll owed by oral doxycycline which he completed in April 2013, last visit with infectious dis ease in November 2012, multiple skin lesions thought to be secondary to long-term dialysis; pres ented to [facility] on 03/14 with symptoms of cough, chills, myalgias, fevers. P eyal was thought to have pneumonia, possible septicemia. Cultures were drawn and he was s tarted on vancomycin and Zosyn and levofloxacin. He was then shift to [facility] for further ma nagement. Recently had right arm brachial basilic fistula creation in January 2014. Blood cultures drawn at [facility] prior to transfer now showing gram-positive cocci in 2 out of 2 sets. Patient has been on levofloxacin for presumably pneumonia. Currently giv en one dose of vancomycin. Infectious disease consulted. Patient is a poor historian and gives different options and they have requesting. It appea rs that he was sick over the weekend feeling cold, and having body aches. Unclear if he rec eived any doses of prednisone-according to patient was given some prednisone which helped re lieve the symptoms. On Saturday morning when he presented to dialysis he did well until about the last half an hour-when he started having violent chills and fever. It was then that clarence madrid had cultures drawn, antibiotics given and shifted initially to [facility] and then subsequently here. His medication at presentation includes doxycycline-unclear if he has continued to remain o n this-was due to complete this in April as per last infectious disease note. However he has not followed up with ID since November 2012. Events Overnight: No new events Subjective Patient denies any ongoing symptoms of fever or chills No nausea vomiting or diarrhea No cough or shortness of breath No rash Scheduled Medications allopurinol 100 mg Oral Daily amLODIPine 10 mg Oral Daily carvedilol 3.125 mg Oral BID WC cholecalciferol 2,000 Units Oral Daily epoetin alena 4,000 Units Intravenous QMWF fluticasone-salmeterol 1 puff Inhalation BID levofloxacin 500 mg Intravenous Q48H levothyroxine 75 mcg Oral QAM AC montelukast 10 mg Oral Nightly sevelamer 2,400 mg Oral TID WC sodium bicarbonate 1,300 mg Oral BID vancomycin (VANCOCIN) IVPB < 1 G 750 mg Intravenous See Admin Instructions vitamin B vjcieeo-S-bhizd acid 1 tablet Oral Daily Continuous Infusions PRN Medications acetaminophen, acetaminophen, albumin human, albuterol, albuterol, loperamide, ondansetron, ondansetron, polyethylene glycol, sevelamer, sodium chloride OBJECTIVE Vital Signs: BP 99/57 | Pulse 88 | Temp(Src) 98.3 F (36.8 C) (Oral) | Resp 19 | Ht 1.702 m (5' 7") | Wt 71.9 kg (158 lb 8.2 oz) | BMI 24.82 kg/m2 | SpO2 98% Temp: [97.5 F (36.4 C)-98.8 F (37.1 C)] 98.3 F (36.8 C) (03/18 744) BP: (99-133)/(51-71) 99/57 mmHg (03/18 744) Heart Rate: [70-88] 88 (03/18 744) Resp: [16-19] 19 (03/18 744) SpO2: [97 %-100 %] 98 % (03/18 744) Vitals reviewed nontoxic afebrile appears comfortable Conjunctivae normal Lungs clear to auscultation No thrush Abdomen soft Fistula site unremarkable No rash Alert and appropriate DATA CBC: Lab Results Component Value Date WBC 9.0 03/18/2014 RBC 3.28* 03/18/2014 HGB 9.8* 03/18/2014 HCT 29.6* 03/18/2014 MCV 90.2 03/18/2014 MCH 29.8 03/18/2014 MCHC 33.1 03/18/2014 RDW 47.3 03/18/2014 PLT 93* 03/18/2014 MPV 8.9 03/18/2014 DIFFTYPE MANUAL 03/18/2014 WBC: Lab Results Component Value Date WBC 9.0 03/18/2014 NEUTABSMAN 7.0 03/18/2014 NEUTROABS 4.2 02/08/2014 NEUTROMAN 78 03/18/2014 LYMPHOABS 0.6* 03/18/2014 LYMPHOMAN 7 03/18/2014 LYMPHSABS 1.0 02/08/2014 LYMPHOPCT 15.7 02/08/2014 MONOABSMAN 1.3* 03/18/2014 MONOMAN 14 03/18/2014 MONOPCT 9.9 02/08/2014 EOSINOABS 0.2 07/06/2012 EOSINOMAN 1 07/06/2012 EOSABS 0.4 02/08/2014 EOSPCT 6.7 02/08/2014 BASOABSMAN 0.1 05/01/2012 BASOSABS 0.0 02/08/2014 BASOSMAN 1 05/01/2012 BASOPCT 0.4 02/08/2014 PLTEST ADEQUATE 11/09/2013 BANDSPCT 1 03/18/2014 NRBC 1* 05/02/2012 METAABS 0.1* 03/17/2014 METAPCT 1 03/17/2014 COMDIFF SLIDE SCANNED, AGREES WITH AUTOMATED RESULTS. 11/09/2013 CMP: Lab Results Component Value Date NA 127* 03/18/2014 K 3.5 03/18/2014 CL 93* 03/18/2014 CO2 27 03/18/2014 ANIONGAP 11 03/18/2014 GLUF 123* 03/18/2014 BUN 31* 03/18/2014 CREATININE 5.28* 03/18/2014 BCR 6 03/18/2014 CA 7.8* 03/18/2014 CA 6.1* 04/02/2012 PROT 6.0* 11/10/2013 ALB 3.5* 11/10/2013 GLOB 2.5 11/10/2013 BILITOT 0.6 11/10/2013 ALP 122* 11/10/2013 AST 18 11/10/2013 ALT 22 11/10/2013 EGFR 12* 03/18/2014 PROBLEM LIST Principal Problem: Pneumonia, organism unspecified Active Problems: Secondary hyperparathyroidism (of renal origin) Diabetes mellitus with ESRD (end-stage renal disease) HTN (hypertension) ESRD (end stage renal disease) on dialysis Anemia of chronic kidney failure ASSESSMENT & PLAN Septicemia Fever with jxqrliweyl-wwwu-xmsygmog cocci seen in 4 out of 4 bottles drawn at [place] Previous history has been with MSSA and Streptococcus anginosus. It appears that patient has received multiple courses of antibiotics for recurrent bacterem ia. Was advised to stay on oral doxycycline for a few months-which he should have completed in April. However he is on doxycycline at present-appears to have continued long-term-d iscontinued yesterday Previously, source of bacteremia has never been found-thought to be skin as he had multiple excoriations-at present he has none of these. Previous RONY 2 have not shown any vegetation. Reports from [facility] with regard to the bacteremia pending Patient currently on vancomycin post dialysis Pneumonia Patient was thought to have pneumonia and started on levofloxacin Repeat chest x-ray yesterday shows left lower lobe consolidation consistent with pneumonia Patient on levofloxacin Continue-recommend total of 10 days End-stage renal disease on dialysis Antibiotics will need adjustment Dr Sharma Will assume ID service from tomorrow. Code Status: Full Code Kisha Tello MD 03/18/2014 Jeaneth Abraham MD - 03/17/2014 1:27 PM PDT . Progress Notes by Douglas Stevenson MD at 03/17/14 1685 Author: Douglas Stevenson MD Service: (none) Author Type: Physician Filed: 03/17/14 7440 Date of Service: 03/17/141326 Status: Signed Regional Clinical Director: Douglas Stevenson MD (Physician) [facility] Service: Hospitalist Progress Note Hospital Day: LOS: 2 days Consultants: Treatment Team: Admitting Provider: Paulie Mcgarry MD The first problem in assessment is the principal problem. ASSESSMENT/ PLAN 1. Staph aureus bacteremia. 4 out of 4 bottles, right lower lobe pneumonia, most likely phyllis terial: Most likely source of bacteremia is his PermCath. We'll continue Levaquin for now. F elenalow blood cultures. Discussed and consulted ID. We'll start patient on IV vancomycin, but get blood cultures before that. Patient had a history of previous staph aureus infection in his left groin, but currently l ooks okay. 2. ESRD, on hematemesis. Discussed with nephrology . 03/17. Continue chronic management . 3. Hypertension, chronic stable. Continue home medications 4. Diabetes mellitus continue with insulin . Current regimen. 5. Thrombocytopenia :Most likely due to sepsis. Follow-up closely . Telemetry: Not Required. Newman: Not Required. DVT: On SCd due to above. Disposition: home Pending above . Code Status: Full Code Dictation and ball mill mixer or software, ebindle, used which may contain error for similar s ounding words even after review. Personal communication requested for any clarification. SUBJECTIVE Events Overnight: *Patient does not have any complaints at all. Denies any cough, shortnes s of breath, nausea, vomiting, diarrhea. . OBJECTIVE Vital Signs: BP 114/58 | Pulse 77 | Temp(Src) 98.7 F (37.1 C) (Oral) | Resp 18 | Ht 1.702 m (5' 7") | Wt 71.9 kg (158 lb 8.2 oz) | BMI 24.82 kg/m2 | SpO2 100% Filed Vitals: 03/17/14 1244 03/17/14 1245 03/17/14 1300 03/17/14 1315 BP: 112/57 112/57 113/56 114/58 Pulse: Temp: TempSrc: Resp: Height: Weight: SpO2: Intake/Output Summary (Last 24 hours) at 03/17/14 1327 Last data filed at 03/17/14 0429 Gross per 24 hour Intake 1405 ml Output 0 ml Net 1405 ml General: Well nourished. Psych: Alert and oriented x 3. Calm, cooperative. Cardiovascular: left-sided tunnel catheter . Regular rate and rhythm, no murmurs, no thril ls. Normal PMI. Respiratory: Clear to auscultation, no wheezing or crackles, breathing non labored. Gastrointestinal: Soft, non-tender, non-distended, positive bowel sounds. No HSM. Musculoskeletal: right-sided AV fistula has a bruit No edema in bilateral lower extremitie s. No joint swelling. Skin: Warm and dry, no rashes. Neck: No JVD, Trachea midline. Neurological: Non focal. Motor grossly intact. DATA CBC: Lab Results Component Value Date WBC 9.6 03/17/2014 RBC 3.57* 03/17/2014 HGB 10.6* 03/17/2014 HCT 32.4* 03/17/2014 MCV 90.8 03/17/2014 MCH 29.8 03/17/2014 MCHC 32.8 03/17/2014 RDW 48.6 03/17/2014 PLT 73* 03/17/2014 MPV 9.0 03/17/2014 DIFFTYPE MANUAL 03/17/2014 CMP: Lab Results Component Value Date NA 127* 03/17/2014 K 3.9 03/17/2014 CL 91* 03/17/2014 CO2 25 03/17/2014 ANIONGAP 15 03/17/2014 GLUF 108* 03/17/2014 BUN 55* 03/17/2014 CREATININE 8.10* 03/17/2014 BCR 7 03/17/2014 CA 8.2* 03/17/2014 CA 6.1* 04/02/2012 PROT 6.0* 11/10/2013 ALB 3.5* 11/10/2013 GLOB 2.5 11/10/2013 BILITOT 0.6 11/10/2013 ALP 122* 11/10/2013 AST 18 11/10/2013 ALT 22 11/10/2013 EGFR 8* 03/17/2014 Magnesium: Lab Results Component Value Date MG 1.8 03/16/2014 Phosphorus: Lab Results Component Value Date PHOS 3.0 03/16/2014 PT/INR: Lab Results Component Value Date INR 0.9 02/08/2014 PTT: Lab Results Component Value Date APTT 25 02/08/2014 [APTT Scheduled Medications allopurinol 100 mg Oral Daily amLODIPine 10 mg Oral Daily carvedilol 3.125 mg Oral BID WC cholecalciferol 2,000 Units Oral Daily doxycycline 100 mg Oral BID epoetin alena 4,000 Units Intravenous QMWF fluticasone-salmeterol 1 puff Inhalation BID heparin (porcine) Intracatheter Once in dialysis levofloxacin 500 mg Intravenous Q48H levothyroxine 75 mcg Oral QAM AC montelukast 10 mg Oral Nightly sevelamer 2,400 mg Oral TID WC sodium bicarbonate 1,300 mg Oral BID vitamin B ocugltg-G-nntqr acid 1 tablet Oral Daily Continuous Infusions PRN Medications acetaminophen, acetaminophen, albumin human, albuterol, albuterol, loperamide, ondansetron, ondansetron, polyethylene glycol, sevelamer, sodium chloride PROBLEM LIST Principal Problem: Pneumonia, organism unspecified Active Problems: Secondary hyperparathyroidism (of renal origin) Diabetes mellitus with ESRD (end-stage renal disease) HTN (hypertension) ESRD (end stage renal disease) on dialysis Anemia of chronic kidney failure Douglas Stevenson MD 03/17/20141:27 PM Cosmo Lang MD - 11:25 AM PDT Progress Notes by Cosmo Soria MD at 03/17/14 1125 Author: Cosmo Soria MD Service: Nephrology Author Type: Physician Filed: 03/17/14 1134 Date of Service: 03/17/14 1125 Status: Signed Regional Clinical Director: Cosmo Soria MD (Physician) PCP : [facility] LOS: 2 days Carol Potter is a 48 y.o. 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 Clotted AVF 11/04 when hospitalized at [facility] and had tunneled catheter placed. Right upper extremity brachiocephalic fistula by Dr. Meyer 02/04 Interval history: Carol Potter feels 'good' today. Overnight events: No fever, chills sweats. No nausea, vomiting or diarrhea. No shortness of breath, chest pain, cough. ROS: As in History of Present Illness. 7 area ROS was done and was otherwise negative. Examination: Constitutional: Alert awake and oriented. Sitting comfortably in chair. HEENT: No JVD, non icteric sclera. Cardiovascular: S1soft. No friction rub. No S3. No murmur. LUNGS:: Minimal basal rales . Abdominal: Soft with minimal epigastric tenderness. No distension and no mass. There is no rebound tenderness and no guarding. EXT: B/L LE with chronic venous changes. distal lower extremity pulses not palpable Neurological: No gross focal motor neurologic deficits. Normal sensorium. Speech fluent. Ga it not tested. Moves all 4 extremities equally. Skin: Skin is warm and dry. Hemodialysis access: Left upper extremity brachiocephalic fistula, clotted Right UE brachiocephalic AVF with bruit. Left IJ tunneled catheter. The following portions of the patient's history were reviewed and updated as appropriate: l aboratory data, radiologic studies, allergies, current medications, and problem list. Past m edical, surgical, social, and family history was also reviewed. Past history summarized as a iesha. Scheduled Medications Reviewed. Continuous Infusions Reviewed. Vital Signs: BP 112/70 | Pulse 77 | Temp(Src) 98.7 F (37.1 C) (Oral) | Resp 18 | Ht 1.702 m (5' 7") | Wt 71.9 kg (158 lb 8.2 oz) | BMI 24.82 kg/m2 | SpO2 100% I&O Detailed Table: I/O last 3 completed shifts: In: 1874 [P.O.:1874] Out: 0 Weight change: 0.2 kg (7.1 oz) Hemodynamics Last 24hrs: Assessment and Recommendations: Mr. Potter is a 48 y.o. male patient with ESRD secondary to biopsy proven Diabetic nephropathy who is dialyzed Saturday and Saturday at [place] dialysis unit using left IJ tunnel ed dialysis catheter (last HD 03/15/14). His primary corporate administrator is Dr. Timmons. Currently admitted with fever ? Pneumonia. HTN: Anemia of chronic renal disease History of gout Hypoalbuminemia with diabetic nephropathy and nephrotic syndrome Secondary hyperparathyroidism Lab data evaluation: Lab Results Component Value Date BUN 55* 03/17/2014 CREATININE 8.10* 03/17/2014 EGFR 8* 03/17/2014 NA 127* 03/17/2014 K 3.9 03/17/2014 CL 91* 03/17/2014 CO2 25 03/17/2014 CA 8.2* 03/17/2014 PHOS 3.0 03/16/2014 MG 1.8 03/16/2014 ALB 3.5* 11/10/2013 HGB 10.6* 03/17/2014 03/17/14 Assessment: ESRD stable. Access working OK. Uncomplicated dialysis today. Hypertension reasonably controlled, compliant with and no side effects from Coreg, amlodipi ne Clinically minimally volume overloaded with no lower extremity edema, + JVD, no pleural eff usion, minimal basal rales, no orthopnea. Ca, PO4, Mg, target range. K Ok. Mild hyponatremia in ESRD with acute respiratory infection and some degree of volume overlo ad (noted non oliguric state). Mild hypoalbuminemia, stable. Secondary hyperparathyroidism. PTH followed in the outpatient dialysis unit. On renvela. Anemia of chronic renal failure, stable. No overt bleeding. Noted mild thrombocytopenia. Stable without any overt bleeding. Bronchitis/pneumonia improved on levofloxacin. Leukocytosis resolved. On long-term doxycycline. Recommendations: Follow up blood cultures. Continue levfloxacin for now. Continue for a 5 day course. Continue Coreg and amlodipine and current dose. Continue Renvela in current dose for secondary hyperparathyroidism along with vitamin D rep lacement From my side may be discharged to resume outpatient maintenance hemodialysis on a Saturday schedule Needs follow-up with Dr. Meyer for slow maturation of right upper extremity AV fistula Carol Potter should be on a 2 gm [...] hr period. Strict I/O should be done. COSMO SOIRA MD 03/17/[address] Stevenson. Seen earlier in the day and charting completed later after rounds. Dictation software, ebindle, used which may contain error for similar sounding words. Personal communication requested for any clarification. Prognosis guarded in view of multiple comorbid illnesses and ESRD Douglas Abraham MD - 2:44 PM PDT Progress Notes by Douglas Stevenson MD at 03/16/14 3009 Author: Douglas Stevenson MD Service: (none) Author Type: Physician Filed: 03/16/14 1659 Date of Service: 03/16/14 5295 Status: Signed Regional Clinical Director: Douglas Stevenson MD (Physician) [facility] Service: Hospitalist Progress Note Hospital Day: LOS: 1 day Consultants: Treatment Team: Consulting Physician: Cosmo Soria MD Admitting Provider: Paulie Mcgarry MD The first problem in assessment is the principal problem. ASSESSMENT/ PLAN 1. Pneumonia: Most likely bacterial. Unclear which side. We'll try to get X ray report from [facility]. Continue Levaquin for now. Follow blood cultures from [facility]. Also to rule out any bacteremia as he has history of same and also has a catheter though it looks c lean. 2. ESRD, on hematemesis. Discussed with nephrology . 03/16. Continue chronic management . 3. Hypertension, chronic stable. Continue home medications 4. Diabetes mellitus continue with insulin . Current regimen. 5. Thrombocytopenia : Acute compared to last 1 month, but compared to yesterday. Has been m ore or less unchanged . Possible due to infection . Will monitor for now . Discontinue hepar in . Telemetry: Not Required. Newman: Not Required. DVT: On SCd due to above. Disposition: home possibly tomorrow. Pending above . Code Status: Full Code Dictation and ball mill mixer or software, ebindle, used which may contain error for similar s ounding words even after review. Personal communication requested for any clarification. SUBJECTIVE Events Overnight: * now much better, but still has some cough and pain in lower ribs not b ringing up any phlegm. Denies any nausea, vomiting, or shortness of breath . OBJECTIVE Vital Signs: BP 110/70 | Pulse 68 | Temp(Src) 98.6 F (37 C) (Oral) | Resp 18 | Ht 1.702 m (5' 7") | Wt 72 kg (158 lb 11.7 oz) | BMI 24.85 kg/m2 | SpO2 97% Filed Vitals: 03/15/14 2344 03/16/14 0434 03/16/14 0821 03/16/14 1023 BP: 153/59 88/54 107/58 110/70 Pulse: 96 88 77 68 Temp: 99.2 F (37.3 C) 98.4 F (36.9 C) 98.8 F (37.1 C) 98.6 F (37 C) TempSrc: Oral Oral Oral Oral Resp: 18 18 16 18 Height: Weight: 72 kg (158 lb 11.7 oz) SpO2: 97% 99% 98% 97% Intake/Output Summary (Last 24 hours) at 03/16/14 1444 Last data filed at 03/16/14 1035 Gross per 24 hour Intake 470 ml Output 0 ml Net 470 ml General: Well nourished. Psych: Alert and oriented x 3. Calm, cooperative. Cardiovascular: left-sided tunnel catheter . Regular rate and rhythm, no murmurs, no thril ls. Normal PMI. Respiratory: Clear to auscultation, no wheezing or crackles, breathing non labored. Gastrointestinal: Soft, non-tender, non-distended, positive bowel sounds. No HSM. Musculoskeletal: right-sided AV fistula has a bruit No edema in bilateral lower extremitie s. No joint swelling. Skin: Warm and dry, no rashes. Neck: No JVD, Trachea midline. Neurological: Non focal. Motor grossly intact. DATA CBC: Lab Results Component Value Date WBC 11.9* 03/16/2014 RBC 3.62* 03/16/2014 HGB 10.9* 03/16/2014 HCT 32.5* 03/16/2014 MCV 89.9 03/16/2014 MCH 30.0 03/16/2014 MCHC 33.4 03/16/2014 RDW 49.4 03/16/2014 PLT 81* 03/16/2014 MPV 8.7 03/16/2014 DIFFTYPE MANUAL 03/16/2014 CMP: Lab Results Component Value Date NA 129* 03/16/2014 K 4.0 03/16/2014 CL 93* 03/16/2014 CO2 26 03/16/2014 ANIONGAP 14 03/16/2014 GLUF 131* 03/16/2014 BUN 33* 03/16/2014 CREATININE 5.86* 03/16/2014 BCR 6 03/16/2014 CA 7.8* 03/16/2014 CA 6.1* 04/02/2012 PROT 6.0* 11/10/2013 ALB 3.5* 11/10/2013 GLOB 2.5 11/10/2013 BILITOT 0.6 11/10/2013 ALP 122* 11/10/2013 AST 18 11/10/2013 ALT 22 11/10/2013 EGFR 11* 03/16/2014 Magnesium: Lab Results Component Value Date MG 1.8 03/16/2014 Phosphorus: Lab Results Component Value Date PHOS 3.0 03/16/2014 PT/INR: Lab Results Component Value Date INR 0.9 02/08/2014 PTT: Lab Results Component Value Date APTT 25 02/08/2014 [APTT Scheduled Medications allopurinol 100 mg Oral Daily amLODIPine 10 mg Oral Daily carvedilol 3.125 mg Oral BID WC cholecalciferol 2,000 Units Oral Daily doxycycline 100 mg Oral BID fluticasone-salmeterol 1 puff Inhalation BID heparin (porcine) 5,000 Units Subcutaneous Q8H [START ON 03/17/2014] levofloxacin 500 mg Intravenous Q48H levothyroxine 75 mcg Oral QAM AC montelukast 10 mg Oral Nightly sevelamer 2,400 mg Oral TID WC sodium bicarbonate 1,300 mg Oral BID vitamin B omlsxji-G-sjdss acid 1 tablet Oral Daily Continuous Infusions PRN Medications acetaminophen, acetaminophen, albuterol, albuterol, loperamide, ondansetron, ondansetron, p olyethylene glycol, sevelamer PROBLEM LIST Principal Problem: Pneumonia, organism unspecified Active Problems: Secondary hyperparathyroidism (of renal origin) Diabetes mellitus with ESRD (end-stage renal disease) HTN (hypertension) ESRD (end stage renal disease) on dialysis Anemia of chronic kidney failure Douglas Stevenson MD 03/16/20142:44 PM onversion Transaction, Provider Unknown - 03/15/2014 10:11 PM PDTFormatting of this note might be different from e original. Progress Notes by Kelley Toussaint RPH at 03/15/142210 Author: Kelley Toussaint RPH Service: (none) Author Type: Pharmacist Filed: 03/15/142210 Date of Service: 03/15/142210 Status: Signed Regional Clinical Director: Kelley Toussaint RPH (Pharmacist) Renal Dosing Monitoring: Carol Potter 48 y.o. male Pharmacy dosing for renal function per Dr. Mcgarry HD patient Plan per protocol: Levofloxacin 750 mg IV x1, then levofloxacin 500 mg IV Q 48H ordered for HD (indication [facility] P) Pharmacy will continue monitoring patient for appropriate dosing per renal function. 03/15/2014 10:10 PM Pharmacist: Kelley Toussaint onver quique [place], Provider Unknown - 03/15/2014 9:08 PM PDT Case Management by VANDANA Almaguer at 03/15/142107 Author: VANDANA Almaguer Service: (none) Author Type: Machined [employer] Metal Sprayer Filed: 03/15/142114 Date of Service: 03/15/142107 Status: Signed Regional Clinical Director: VANDANA Almaguer (Machined [employer] Metal Sprayer) 03/15/142105 Discharge Planning Evaluation Admitting Diagnosis sepsis Readmission No Living Arrangements Spouse/significant other;Children Support Systems Spouse/significant other;Children;Family members Type of Residence Private residence House type House-1 story Steps to enter 2 Independent with ADL's Yes Independent with Mobility Other (comment) (uses cane occasionally) Home Care Services No Caregiver after Discharge Yes Caregiver Name Margarita Nunez Relationship to Patient Spouse Phone number call pt's sister Margarita to relay msg to spouse - [phone] Mental Status Oriented Power of Engineering Secretary Yes Power of Engineering Secretary Name Spouse Resources Financial concerns No Transportation issues No Patient/Family concerns No Prescription Plan Yes Name of Pharmacy [facility] [place] Met with pt to discuss discharge planning, Pt is a 48 y.o., male Pt does not drive or work. He is not on home O2. He has dialysis at [facility] in [place] M/ W/F. He is not engaged in any other o/p medical services. He denies taking a blood thinner . He sees his PCP regularly. He does not see any other providers routinely. Pt has good f/u and excellent social support. No needs identified at this time. Patient's PCP is: [facility] Patient's insurance: Medicare / Medicaid / [facility] Coverage concerns: n/a Medication coverage/concerns: n/a Community resources utilized / needed: n/a Assistance in transportation: Sister or friend Identification of any specific education / training: n/a Barriers to Discharge / Alternative housing needed: n/a Anticipated DCP: Home w/ Sister or friend to transport Daniela Salomon docume nted in this encounter H&P Notes Paulie Mcgarry MD - 03/15/2014 8:25 PM PDTFormatting of this note might be different f rom the original. H&P by Paulie Mcgarry MD at 03/15/142024 Author: Paulie Mcgarry MD Service: (none) Author Type: Physician Filed: 03/22/[id number] Date of Service: 03/15/142024 Status: Signed Regional Clinical Director: Paulie Mcgarry MD (Physician) Related Notes: Original Note by Paulie Mcgarry MD (Physician) filed at 03/15/142044 [facility] Service: Hospitalist Admission History & Physical Date of Admission: 03/15/2014 Requesting Physician: Emergency Department Reason for Admission: pneumonia History Obtained From: patient CHIEF COMPLAINT: cough HISTORY OF PRESENT ILLNESS The patient is a 48 y.o. 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 The symptoms have been getting progressively worse. The qian ent went to dialysis unit for his regular Saturday, Saturday, Saturday dialysis session and he was found to be febrile. Associated symptoms are chills and some mild shortness of breath as well as headaches. He said that one of his granddaughters were sick with some mild infectio n that resolved in a matter of a few days. He believes that he got the same "bug" from her. The patient was sent from dialysis unit to [facility] and there chest x-ray apparently s howed infiltrate. His temperature was found to be 102.5. He got some Tylenol, Levaquin, vanc omycin and was sent to [facility] since they do not have a dialysis unit inpatient. Here, the patient was actually afebrile and overall feeling well. He was still complaining of diffuse muscle aches. No alleviating or aggravating factors noted. The patient was admitted under hospitalist service for pneumonia. REVIEW OF SYSTEMS Review of Systems Constitutional: Positive for fever and chills. HENT: Positive for nosebleeds. Respiratory: Positive for cough and shortness of breath. Gastrointestinal: Positive for vomiting. Negative for nausea, abdominal pain and diarrhea. Endocrine: Negative for polyuria. Genitourinary: Negative for dysuria. Musculoskeletal: Negative for back pain. Neurological: Positive for headaches. Hematological: Does not bruise/bleed easily. Psychiatric/Behavioral: The patient is not nervous/anxious. All other systems reviewed and are negative. Past Medical History Diagnosis Date Hyperlipidemia Hypertension [...] W/ EGD; Surgeon: John Singleton MD; Location: [facility] ENDOSCOPY; Se rvice: Gastroenterology; Laterality: N/A; Av fistula placement 05/06/2012 Procedure: AV FISTULA; Surgeon: Oskar Meyer MD; Location: [facility] MAIN OR; Service: Vascul ar; Laterality: Left; Left arm possible right Unlisted procedure arthroscopy shoulder rt , ligaments Knee arthroscopy 07/07/2012 Procedure: KNEE - ARTHROSCOPY; Surgeon: Favio Raza MD; Location: [facility] MAIN OR; ervice: Orthopedics; Laterality: Right; After 1530 Catheter removal 07/07/2012 Procedure: DIALYSIS CATHETER REMOVAL; Surgeon: Oskar Meyer MD; Location: [facility] BED[facility] [place] OCEDURE; Service: General; Laterality: Right; perm cath Dialysis fistula creation 07/07/2012 Procedure: DIALYSIS CATHETER INSERTION; Surgeon: Oskar Meyer MD; Location: [facility] BED[facility] PROCEDURE; Service: General; Laterality: Left; temporary dialysis catheter Av fistula repair 07/11/2012 Procedure: AV FISTULA GRAFT REPAIR/REVISION; Surgeon: Oskar Meyer MD; Location: [facility] OR; Service: Vascular; Laterality: Left; Superficialization of brachiobasilic fistula and right IJ perm cath insertion Dialysis fistula creation 07/11/2012 Procedure: DIALYSIS CATHETER INSERTION; Surgeon: Oskar Meyer MD; Location: [facility] MA[facility] OR; Service: Vascular; Laterality: Left; removed dialysis catheter from left neck and placed new on in left chest, attempted in right neck but unable to place Av fistula placement Right 02/09/2014 Procedure: AV FISTULA; Surgeon: Oskar Meyer MD; Location: [facility] MA[facility] OR; Service: Vascul ar; Laterality: Right; Home meds reviewed - as follows: Prior to Admission medications Medication Sig Start Date End Date Taking? Authorizing Provider acetaminophen (TYLENOL) 325 MG tablet Take 650 mg by mouth every 6 (six) hours as needed. I ndications: Pain Historical Provider albuterol (ACCUNEB) 1.25 MG/3ML nebulizer solution Take 3 mLs by nebulization every 4 (four ) hours as needed for Wheezing. 10/28/13 10/28/14 Karri Huff MD albuterol (PROVENTIL HFA) 108 (90 BASE) MCG/ACT inhaler Inhale 2 puffs into the lungs every 4 (four) hours as needed for Wheezing. 10/28/13 10/28/14 Karri Huff MD allopurinol (ZYLOPRIM) 100 MG tablet Take 100 mg by mouth daily. Indications: Primary Gout CLARENCE Earl amLODIPine (NORVASC) 10 MG tablet Take 10 mg by mouth daily. Historical Provider b complex-vitamin c-folic acid (NEPHRO-THU) 0.8 MG TABS Take 1 tablet by mouth daily. Historical Provider carvedilol (COREG) 3.125 MG tablet Take 3.125 mg by mouth 2 (two) times daily with meals. Historical Provider Cholecalciferol 2000 UNITS TABS Take 1 tablet by mouth daily. Historical Provider doxycycline (DORYX) [address] capsule Take 100 mg by mouth 2 (two) times daily. CLARENCE Rosario fluticasone-salmeterol (ADVAIR DISKUS) 250-50 MCG/DOSE Inhale 1 puff into the lungs 2 (two) times daily. 10/28/13 Karri Huff MD furosemide (LASIX) 20 MG tablet Take 20 mg by mouth daily. Historical Provider levothyroxine (SYNTHROID) 75 MCG tablet Take 75 mcg by mouth every morning before breakfast . Indications: Underactive Thyroid CLARENCE Earl loperamide (IMODIUM) 2 MG capsule Take 2 mg by mouth 4 (four) times daily as needed. Ind ications: Diarrhea Historical Provider montelukast (SINGULAIR) 10 MG tablet Take 1 tablet by mouth nightly. 10/28/13 10/28/14 Karri Huff MD RENVELA 800 MG tablet take 3 tablets by mouth three times a day WITH MEALS AND 1 TABLET WIT H SNACKS 01/14/14 Juan Timmons MD sevelamer (RENVELA) 800 MG tablet Take 2,400 mg by mouth 3 (three) times daily with meals. Historical Provider sevelamer (RENVELA) 800 MG tablet Take 800 mg by mouth as needed. With snacks CLARENCE Earl sodium bicarbonate 650 MG tablet Take 1,300 mg by mouth 2 (two) times daily. Historica l Provider Allergies Allergen Reactions Lisinopril Other (See [...] KIDS. CURRENTLY UNEMPLOYED, BEFOR E WORKED AT [employer] IN [place]. Quit METHAMPHETAMINES PER PATIENT after t he ARF in mar 2012. FATHER HAS COLON CANCER, HEART DISEASE, MOTHER 15 YEARS AGO. NO FH KIDNEY PROBLEMS. PHYSICAL EXAM Vital Signs: BP 102/59 | Pulse 90 | Temp(Src) 98.9 F (37.2 C) (Oral) | Resp 18 | SpO2 100% Physical Exam Constitutional: He is oriented to person, place, and time. No distress. HENT: Head: Normocephalic and atraumatic. Mouth/Throat: No oropharyngeal exudate. Eyes: Conjunctivae are normal. No scleral icterus. Neck: Neck supple. No JVD present. No thyromegaly present. Cardiovascular: Normal rate and regular rhythm. Exam reveals no friction rub. Pulmonary/Chest: He has no wheezes. Abdominal: Soft. He exhibits no distension. Musculoskeletal: He exhibits no edema. Neurological: He is alert and oriented to person, place, and time. No cranial nerve deficit . Skin: He is not diaphoretic. No pallor. Psychiatric: He has a normal mood and affect. His behavior is normal. Vitals reviewed. DATA Labs from [facility] reviewed as follows: WBC 10,900 with hemoglobin 12[address] atelet count 100,000 with 95% neutrophils, 5% lymphocytes. INR of 1.1. BMP showed estimated GFR of 12, BUN of 21. ALT and AST normal at 27 and 25 respectively. Creatinine kinase 28. Ca lcium 9.1. Anion gap 20, CO2 of 25, chloride 96. Potassium 4, sodium 137. Troponin elevated at 0.232. PROBLEM LIST Active Problems: Diabetes mellitus with ESRD (end-stage renal disease) HTN (hypertension) ESRD (end stage renal disease) on dialysis Anemia of chronic kidney failure ASSESSMENT & PLAN 1. Pneumonia ?. I do not have radiology report from [place], just the report from the E R physician at [place] to Dr. Salas, our ER physician here. Will request full radiolog y report to be sent here. IV Levaquin is going to be started. He did get a dose in [facility]. 2. End-stage renal disease. Discussed with Dr. Soria. The patient is on Saturday, Saturday and Saturday dialysis. The patient did finish his dialysis today. Next dialysis is in 2 days. 3. Hypertension. Continue home medications. 4. History of asthma. Continue Advair. Respiratory status seems to be stable. The patient i s stable on oxygen. 5. Deep venous thrombosis prophylaxis. Subcutaneous heparin and sequential compression gorge abeba. Disposition: Code Status: Prior [facility]15/2014 documented in this encounter Consult Notes Kisha Tello MD - 03/17/2014 2:32 PM PDTFormatting of this note might be different f rom the original. Consult* by Kisha Tello MD at 03/17/14 1432 Author: Kisha Tello MD Service: (none) Author Type: Physician Filed: 03/17/14 1437 Date of Service: 03/17/141431 Status: Signed Regional Clinical Director: Kisha Tello MD (Physician) [facility] Service: Infectious Disease Initial Consult Note Date of Admission: 03/15/2014 Reason for Consultation: Fever and bacteremia Requesting Physician: Dr. Douglas Stevenson, Hospitalist History Obtained From: patient, chart review CHIEF COMPLAINT: Fever and myalgias HISTORY OF PRESENT ILLNESS The patient is a 48 y.o. male with significant past medical history of diabetic nephropathy , end-stage renal disease on dialysis, previous history of multiple episodes of bacteremia [ with Staphylococcus aureus, MSSA, Streptococcus anginosus] , right knee septic arthritis, co mpleted at least 3 different courses of intravenous antibiotics followed by oral doxycycline which he completed in April 2013, last visit with infectious disease in November 2012, multi ple skin lesions thought to be secondary to long-term dialysis; presented to [facility] on 03/14 with symptoms of cough, chills, myalgias, fevers. Patient was thought to johnson ve pneumonia, possible septicemia. Cultures were drawn and he was started on vancomycin and Zosyn and levofloxacin. He was then shift to [facility] for further management. Recently had right arm brachial basilic fistula creation in January 2014. Blood cultures drawn at [facility] prior to transfer now showing gram-positive cocci in 2 out of 2 sets. Patient has been on levofloxacin for presumably pneumonia. Currently giv en one dose of vancomycin. Infectious disease consulted. Patient is a poor historian and gives different options and they have requesting. It appea rs that he was sick over the weekend feeling cold, and having body aches. Unclear if he rec eived any doses of prednisone-according to patient was given some prednisone which helped re lieve the symptoms. On Saturday morning when he presented to dialysis he did well until about the last half an hour-when he started having violent chills and fever. It was then that clarence julius had cultures drawn, antibiotics given and shifted initially to [facility] and then subsequently here. His medication at presentation includes doxycycline-unclear if he has continued to remain o n this-was due to complete this in April as per last infectious disease note. However he has not followed up with ID since November 2012. REVIEW OF SYSTEMS Review of Systems GEN: Positive for fevers ,chills, positive for loss of appetite HEENT: No redness,pain in eyes. No blurred vision. No tinnitus or ear pain.No sore throat o r difficulty swallowing NECK: no stiffness. CHEST: Or sitting for cough or difficulty breathing . No chest pain or palpitations. ABDOMEN: Positive for left upper quadrant pain abdomen . Negative nausea, vomiting . Qian ent says he had diarrhea earlier-all the stool now solid. : Patient is end-stage renal disease on dialysis PERIPHERIES: no swelling or open wounds. Significant improvement in his skin lesions/excor iations-"since he was taking good care of himself" SKIN: no areas of redness, rash or skin breakdown JOINTS: no swelling . No pain on movement . NEURO: no significant headaches, focal weaknesses. PSYCH: No agitation, confusion, insomnia Past Medical History Diagnosis Date Hyperlipidemia Hypertension Thyroid disease Anemia Abdominal pain, right upper quadrant 04/13/2012 Dialysis patient GI bleed 04/30/2012 from coumadin Walker as [...] eruption 04/03/2012 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 Neuromuscular disorder neuropathy Hyperkalemia 11/09/2013 Chronic obstructive asthma with exacerbation 10/27/2013 SOB (shortness of breath) 10/27/2013 Past Surgical History Procedure Laterality Date Colonoscopy with egd 05/01/2012 Procedure: COLONOSCOPY W/ EGD; Surgeon: John Singleton MD; Location: [facility]; Se rvice: Gastroenterology; Laterality: N/A; Av fistula placement 05/06/2012 Procedure: AV FISTULA; Surgeon: Oskar Meyer MD; Location: [facility] MA[facility] OR; Service: Vascul ar; Laterality: Left; Left arm possible right Unlisted procedure arthroscopy shoulder rt , ligaments Knee arthroscopy 07/07/2012 Procedure: KNEE - ARTHROSCOPY; Surgeon: Favio Raza MD; Location: [facility] MA[facility] OR; S ervice: Orthopedics; Laterality: Right; After 1530 Catheter removal 07/07/2012 Procedure: DIALYSIS CATHETER REMOVAL; Surgeon: Oskar Meyer MD; Location: [facility] [place] OCEDURE; Service: General; Laterality: Right; perm cath Dialysis fistula creation 07/07/2012 Procedure: DIALYSIS CATHETER INSERTION; Surgeon: Oskar Meyer MD; Location: [facility] PROCEDURE; Service: General; Laterality: Left; temporary dialysis catheter Av fistula repair 07/11/2012 Procedure: AV FISTULA GRAFT REPAIR/REVISION; Surgeon: Oskar Meyer MD; Location: [facility] OR; Service: Vascular; Laterality: Left; Superficialization of brachiobasilic fistula and right IJ perm cath insertion Dialysis fistula creation 07/11/2012 Procedure: DIALYSIS CATHETER INSERTION; Surgeon: Oskar Meyer MD; Location: [facility] OR; Service: Vascular; Laterality: Left; removed dialysis catheter from left neck and placed new on in left chest, attempted in right neck but unable to place Av fistula placement Right 02/09/2014 Procedure: AV FISTULA; Surgeon: Oskar Meyer MD; Location: [facility] MA[facility] OR; Service: Vascul ar; Laterality: Right; Allergies Allergen Reactions Lisinopril Other (See Comments) "makes me sweat and knocked me out" Penicillins Other (See Comments) Unknown 10/08/12: Patient tolerated Ceftriaxone during previous admissions. Prescriptions prior to admission Medication Sig Dispense Refill acetaminophen (TYLENOL) 325 [...] mg by mouth 2 (two) times daily. Scheduled Medications allopurinol 100 mg Oral Daily amLODIPine 10 mg Oral Daily carvedilol 3.125 mg Oral BID WC cholecalciferol 2,000 Units Oral Daily doxycycline 100 mg Oral BID epoetin alena 4,000 Units Intravenous QMWF fluticasone-salmeterol 1 puff Inhalation BID heparin (porcine) Intracatheter Once in dialysis levofloxacin 500 mg Intravenous Q48H levothyroxine 75 mcg Oral QAM AC montelukast 10 mg Oral Nightly sevelamer 2,400 mg Oral TID WC sodium bicarbonate 1,300 mg Oral BID vancomycin 1,500 mg Intravenous Once vancomycin (VANCOCIN) IVPB < 1 G 750 mg Intravenous See Admin Instructions vitamin B ceszljz-F-vboxj acid 1 tablet Oral Daily Continuous Infusions PRN Medications acetaminophen, acetaminophen, albumin human, albuterol, albuterol, loperamide, ondansetron, ondansetron, polyethylene glycol, sevelamer, sodium chloride Family History Problem Relation Age of Onset [...] KIDS. CURRENTLY UNEMPLOYED, BEFOR E WORKED AT [employer] [place]. Quit METHAMPHETAMINES PER PATIENT after t he ARF in mar 2012. FATHER HAS COLON CANCER, HEART DISEASE, MOTHER 15 YEARS AGO. NO FH KIDNEY PROBLEMS. PHYSICAL EXAM Vital Signs: BP 113/64 | Pulse 77 | Temp(Src) 98.7 F (37.1 C) (Oral) | Resp 18 | Ht 1.702 m (5' 7") | Wt 71.9 kg (158 lb 8.2 oz) | BMI 24.82 kg/m2 | SpO2 100% Temp: [98.5 F (36.9 C)-98.7 F (37.1 C)] 98.7 F (37.1 C) (03/17 742) BP: (89-133)/(51-70) 113/64 mmHg (03/17 1430) Heart Rate: [76-93] 77 (03/17 742) Resp: [18] 18 (03/17 742) SpO2: [98 %-100 %] 100 % (03/17 742) Weight: [71.9 kg (158 lb 8.2 oz)] 71.9 kg (158 lb 8.2 oz) (03/17 042) Physical Exam GENERAL: vitals reviewed. Non toxic , afebrile . Appears comfortable and not in any distres s. Currently getting dialyzed HEENT: conjunctivae normal. No icterus. External ears appear normal. Throat- no thrush or e rythema. NECK: supple . LUNGS: normal vesicular sounds . No obvious rales or rhonchi HEART : Normal heart sounds . Positive for murmur ABDOMEN: soft, question of mild tenderness left upper quadrant-not consistent on exam. Melrude el sounds appreciated PERIPHERIES: No edema, varicosities or ulcers SKIN: no rash. No areas of cellulitis . Previously [in 2012] noted skin excoriations have all resolved. JOINTS: no swelling or limitation of movement NEURO: no obvious focal deficits . Alert , conscious and oriented PSYCH: mood and affect normal HEME ; No significant bleeding or Clots on exam IV SITE: clean without any obvious purulence DATA CBC: Lab Results Component Value Date WBC 9.6 03/17/2014 RBC 3.57* 03/17/2014 HGB 10.6* 03/17/2014 HCT 32.4* 03/17/2014 MCV 90.8 03/17/2014 MCH 29.8 03/17/2014 MCHC 32.8 03/17/2014 RDW 48.6 03/17/2014 PLT 73* 03/17/2014 MPV 9.0 03/17/2014 DIFFTYPE MANUAL 03/17/2014 WBC: Lab Results Component Value Date WBC 9.6 03/17/2014 NEUTABSMAN 6.6 03/17/2014 NEUTROABS 4.2 02/08/2014 NEUTROMAN 69 03/17/2014 LYMPHOABS 1.1 03/17/2014 LYMPHOMAN 11 03/17/2014 LYMPHSABS 1.0 02/08/2014 LYMPHOPCT 15.7 02/08/2014 MONOABSMAN 0.4 03/17/2014 MONOMAN 4 03/17/2014 MONOPCT 9.9 02/08/2014 EOSINOABS 0.2 07/06/2012 EOSINOMAN 1 07/06/2012 EOSABS 0.4 02/08/2014 EOSPCT 6.7 02/08/2014 BASOABSMAN 0.1 05/01/2012 BASOSABS 0.0 02/08/2014 BASOSMAN 1 05/01/2012 BASOPCT 0.4 02/08/2014 PLTEST ADEQUATE 11/09/2013 BANDSPCT 15 03/17/2014 NRBC 1* 05/02/2012 METAABS 0.1* 03/17/2014 METAPCT 1 03/17/2014 COMDIFF SLIDE SCANNED, AGREES WITH AUTOMATED RESULTS. 11/09/2013 CMP: Lab Results Component Value Date NA 127* 03/17/2014 K 3.9 03/17/2014 CL 91* 03/17/2014 CO2 25 03/17/2014 ANIONGAP 15 03/17/2014 GLUF 108* 03/17/2014 BUN 55* 03/17/2014 CREATININE 8.10* 03/17/2014 BCR 7 03/17/2014 CA 8.2* 03/17/2014 CA 6.1* 04/02/2012 PROT 6.0* 11/10/2013 ALB 3.5* 11/10/2013 GLOB 2.5 11/10/2013 BILITOT 0.6 11/10/2013 ALP 122* 11/10/2013 AST 18 11/10/2013 ALT 22 11/10/2013 EGFR 8* 03/17/2014 LDH: Lab Results Component Value Date LDH 354* 04/11/2012 Uric Acid: Lab Results Component Value Date URICACID 8.2 04/02/2012 PTT: Lab Results Component Value Date APTT 25 02/08/2014 [APTT} CPK: Lab Results Component Value Date CKTOTAL 105 10/27/2013 U/A: Lab Results Component Value Date COLORU see results 10/03/2012 CLARITYU CLEAR 10/10/2012 CLARITYU CLEAR 10/03/2012 MEROPENEM 1.015 10/10/2012 LEUKOCYTESUR NEGATIVE 10/10/2012 NITRITE NEGATIVE 10/10/2012 NITRITE NEGATIVE 10/03/2012 UROBILINOGEN 0.2 10/10/2012 UROBILINOGEN 0.2 10/03/2012 PHUR 7.0 10/10/2012 PHUR >8.9* 10/03/2012 BLOODU NEGATIVE 10/10/2012 KETONES NEGATIVE 10/10/2012 BILIRUBINUR NEGATIVE 10/10/2012 BILIRUBINUR NEGATIVE 10/03/2012 GLUCOSEU NEGATIVE 10/10/2012 Reviewed available records from [facility], laboratory data, microbiology data and radio logy data PROBLEM LIST Principal Problem: Pneumonia, organism unspecified Active Problems: Secondary hyperparathyroidism (of renal origin) Diabetes mellitus with ESRD (end-stage renal disease) HTN (hypertension) ESRD (end stage renal disease) on dialysis Anemia of chronic kidney failure ASSESSMENT & PLAN Septicemia Fever with dfmkphlans-hmpx-qppgkdtu cocci seen in 4 out of 4 bottles drawn at [place] Previous history has been with MSSA and Streptococcus anginosus. It appears that patient has received multiple courses of antibiotics for recurrent bacterem ia. Was advised to stay on oral doxycycline for a few months-which he should have completed in April. However he is on doxycycline at present-appears to have continued long-term. At present I suggest discontinuation of the doxycycline Previously, source of bacteremia has never been found-thought to be skin as he had multiple excoriations-at present he has none of these. Previous RONY 2 have not shown any vegetation. Will consider getting another one if he johnson s persistent bacteremia. Until the identification and sensitivity of gram-positive cocci known-continue with IV vanc omycin Repeat blood cultures to be drawn today Pneumonia Patient was thought to have pneumonia and started on levofloxacin Will repeat chest x-ray today Patient has no respiratory symptoms at present End-stage renal disease on dialysis Antibiotics will need adjustment Discussed with Dr. Stevenson Code Status: Full Code Primary Care Physician: [facility] Thank you for allowing me to participate in the care of this patient. I will continue to follow with you. Kisha Tello MD 03/17/2014 Nik Lang MD - 03/16/2014 2:02 PM PDTFormatting of this note might be different from the origi nal. Consult* by Cosmo Soria MD at 03/16/14 1402 Author: Cosmo Soria MD Service: Nephrology Author Type: Physician Filed: 03/16/14 0134 Date of Service: 03/16/14 1402 Status: Signed Regional Clinical Director: Cosmo Soria MD (Physician) [facility] Service: NEPHROLOGY CONSULT Note Carol Potter 48 y.o. [id number] male PCP is [facility] Hospital Day: LOS: 1 day Date of Admission: 03/16/2014 Requesting Physician: Dr. Mcgarry/Dr. Stevenson Reason for Admission: Fever Reason for consult: ESRD management History Obtained From: patient, chart review CHIEF COMPLAINT: I had fever HISTORY OF PRESENT ILLNESS: Carol Potter is a 48 y.o. male with Significant PMH of ESRD secondary to Biopsy-proven Diabetic nephropathy who is dialyzed Saturday an saturday at [place] dialysis unit via Left upper extremity brachio cephalic fistula DM2 Secondary hyperparathyroidism Anemia of chronic renal failure Treated with IV antibiotics for endocarditis in the past. Clotted AVF 11/04 when hospitalized at [facility] and had tunneled catheter placed. Right upper extremity brachiocephalic fistula by Dr. Meyer 02/04 Presented with fever at the dialysis unit and complained of not feeling well for the past 2 -3 days with cough, diffuse body aches. Indicated one of his granddaughters being sick with a mild infection which resolved. Sent to [facility] after completion of his dialysis treatment where he was felt to have pneumonia with leukocytosis and infiltrate seen on the chest x-ray. MAXIMUM TEMPER ATURE noted to be 1 or 2.5. Started on intravenous Levaquin after blood cultures were drawn . Otherwise hemodynamically stable. Rapid flu testing 03/15 negative. Nephrology was consulted for evaluation and management of ESRD management. PMH, PSH, Social history, allergies, medications reviewed. Previous history summarized as above. Prior lab data and imaging reviewed. ROS: Review of systems is as per history of present illness. Otherwise a 12 organ system review of systems was done and is negative. Examination: Constitutional: Alert awake and oriented. Lying comfortably in bed HEENT: No JVD, non icteric sclera. Cardiovascular: S1soft. No friction rub. No S3. No murmur. LUNGS:: Minimal basal rales . Abdominal: Soft with minimal epigastric tenderness. No distension and no mass. There is no rebound tenderness and no guarding. EXT: B/L LE with chronic venous changes. distal lower extremity pulses not palpable Neurological: No gross focal motor neurologic deficits. Normal sensorium. Speech fluent. G ait not tested. Moves all 4 extremities equally. Skin: Skin is warm and dry. Hemodialysis access: Left upper extremity brachiocephalic fistula, clotted Right UE brachiocephalic AVF with bruit. Left IJ tunneled catheter. Scheduled Medications Reviewed. Continuous Infusions PRN Medications Reviewed. Allergy: Reviewed. Vital Signs: BP 110/70 | Pulse 68 | Temp(Src) 98.6 F (37 C) (Oral) | Resp 18 | Ht 1.702 m (5' 7") | Wt 72 kg (158 lb 11.7 oz) | BMI 24.85 kg/m2 | SpO2 97% I&O Detailed Table: I/O last 3 completed shifts: In: 350 [P.O.:350] Out: 0 Weight change: Patient's old records and labs were reviewed in detail and summarized. Assessment & Recommendations Carol Potter is a 48 y.o. male with ESRD secondary to biopsy proven Diabetic nephropathy who i s dialyzed Saturday and Saturday at [facility] using left IJ tunneled ratna lysis catheter (last HD 03/15/14). His primary corporate administrator is Dr. Timmons. He is now Admitted with fever ? Pneumonia. HTN: Anemia of chronic renal disease History of gout Hypoalbuminemia with diabetic nephropathy and nephrotic syndrome Secondary hyperparathyroidism Lab data evaluation: Lab Results Component Value Date BUN 33* 03/16/2014 CREATININE 5.86* 03/16/2014 EGFR 11* 03/16/2014 NA 129* 03/16/2014 K 4.0 03/16/2014 CL 93* 03/16/2014 CO2 26 03/16/2014 CA 7.8* 03/16/2014 PHOS 3.0 03/16/2014 MG 1.8 03/16/2014 ALB 3.5* 11/10/2013 HGB 10.9* 03/16/2014 03/16/14 Assessment: ESRD stable. Access working OK. Hypertension reasonably controlled, compliant with and no side effects from Coreg, amlod ipine Clinically minimally volume overloaded with no lower extremity edema, + JVD, no pleural effusion, minimal basal rales, no orthopnea. Ca, PO4, Mg, target range. K Ok. Mild hyponatremia in ESRD with acute respiratory infection and some degree of volume ove rload (noted non oliguric state). Mild hypoalbuminemia, stable. Secondary hyperparathyroidism. PTH followed in the outpatient dialysis unit. On renvela . Anemia of chronic renal failure, stable. No overt bleeding. Noted mild thrombocytopenia. Recommendations: Follow up blood cultures. Continue levfloxacin for now. Will dialyze tomorrow per usual prescription. Ultrafiltration as tolerated. Use a 35 mEq bicarbonate bath for acidosis. Use Procrit to reach hemoglobin target of 10-11. Continue Coreg and amlodipine and current dose. Continue Renvela in current dose for secondary hyperparathyroidism along with vitamin D replacement Carol Potter should be on a 2 gm [...] hr period. Strict I/O should be done. COSMO SORIA MD 03/16/2014 Discussed with admitting hospitalist, Dr. Mcgarry, and Dr. Stevenson (who has taken over care). Seen earlier in the day and charting completed later after rounds. Dictation software, ebindle, used which may contain error for similar sounding words. Personal communication requested for any clarification. Prognosis guarded in view of multiple comorbid illnesses and ESRD including but not limited to . documented in this en counter ED Notes Conversion Transaction, Provider Unknown - 03/15/2014 7:24 PM PDTFormatting of this note m ight be different from the original. ED Notes by Anthony Haque RN at 03/15/141923 Author: Anthony Haque RN Service: (none) Author Type: Registered Nurse Filed: 03/15/141923 Date of Service: 03/15/141923 Status: Signed Regional Clinical Director: Anthony Haque RN (Registered Nurse) MD at bedside. Ed Haque RN 03/15/141923 hFavio roberts MD - 03/15/2014 7:21 PM PDTFormatting of this note might be different from the or iginal. ED Provider Notes by Favio Salas MD at 03/15/141920 Author: Favio Salas MD Service: (none) Author Type: Physician Filed: 03/15/142014 Date of Service: 03/15/141920 Status: Signed Regional Clinical Director: Favio Salas MD (Physician) [facility] Department of Emergency Medicine ED Pre-arrival Provider to Provider 04/01/2012 04/30/2012 10/03/2012 10/27/2013 03/15/2014 Pre-arrival Provider Another ED - Another ED - - Provider Name Dr. Oro ([place]) Nithya Tavera ([facility]) Nikky [facility] Dr. Cervantes, [facility] ED [place] Does provider wish to be contacted after eval? - No - - - Pertinent History and Concerns CC was chest pain and dyspnea, relieved with nitro; noncompl iant with medications; prior history of mild renal insufficiency 47 yo male with recent ESRD on dialysis with PICC line and bilateral DVT on warfarin with acute onset of GI bleeding re cent 10 lb weight loss, cannot walk over last 2 days, HEAD CT negative, CXR nothing acute, E KG nothing acute, failure to thrive, DDRF (Dr. Timmons) MWF Dialysis pt - SOB, 93%, tachypneic, trop .13 - previous normal but is dialysis pt, ekg no ischemic changes. Given prednisone, ceftriaxone, azithro. Last dialysis yesterday. Pneumonia, sepsis, ESRD with HD Relevant Labs or Studies K:7.3; Cr: 14; widened QRS, no peaked T waves; no myocardial ische titi on labs none back K 3.4 - WBC-10.9, lactate 3.4, infiltrate on CXR. Blood cultures pend ing. Relevant Medications Given: Ca Gluconate, Insulin, D50, albuterol, kayexalate, Bicarb - No new medications - Vanco, Zosyn, Levaquin Current Reported Vital Signs - - wnl 140/70, 87, 14, 98%, afebrile - 126/54, T 102.5 Currently Involved Consultants at [facility] - NONE Likely need rehab services and will likely require dilaysis while admitted - - History of Present Illness Patient Identification Carol Potter is a 48 y.o. male. Patient information was obtained from patient. History/Exam limitations: none. Patient presented to the Emergency Department [facility] Room: Chief Complaint Chief Complaint Patient presents with Blood Infection Xfer from [facility] for Sepsis, FUO, and ESRD/HD 48 y.o. male with chills and cough. Patient states that he has been sick all weekend with upper respiratory symptoms as well as myalgias. He has been having subjective fevers and ch ills. Little bit of abdominal pain worse when coughing. He went to dialysis today and effie use of his chills and fever they sent him to [facility]. They are his workup re vealed that he was septic with an elevated lactate, slightly elevated troponin, chronic radha l failure, and a new pneumonia. He was given vancomycin, Zosyn, Levaquin, gentle hydration, Tylenol. The patient was then transferred to our facility for further evaluation as they d o not have hemodialysis capability at their facility. Patient states that he is feeling muc h better after his temperature is coming down. He is not feeling short of breath currently. Symptoms are described as moderate. Aggravated by trying to eat or drink. Mild alleviati on with Tylenol. Primary Care Doctor: [facility] Past Medical History Diagnosis Date Hyperlipidemia Hypertension [...] W/ EGD; Surgeon: John Singleton MD; Location: [facility] ENDOSCOPY; Se rvice: Gastroenterology; Laterality: N/A; Av fistula placement 05/06/2012 Procedure: AV FISTULA; Surgeon: Oskar Meyer MD; Location: [facility] MAIN OR; Service: Vascul ar; Laterality: Left; Left arm possible right Unlisted procedure arthroscopy shoulder rt , ligaments Knee arthroscopy 07/07/2012 Procedure: KNEE - ARTHROSCOPY; Surgeon: Favio Raza MD; Location: [facility] MAIN OR; S ervice: Orthopedics; Laterality: Right; After 1530 Catheter removal 07/07/2012 Procedure: DIALYSIS CATHETER REMOVAL; Surgeon: Oskar Meyer MD; Location: [facility] BEDSIDE FL OCEDURE; Service: General; Laterality: Right; perm cath Dialysis fistula creation 07/07/2012 Procedure: DIALYSIS CATHETER INSERTION; Surgeon: Oskar Meyer MD; Location: [facility] BEDSIDE PROCEDURE; Service: General; Laterality: Left; temporary dialysis catheter Av fistula repair 07/11/2012 Procedure: AV FISTULA GRAFT REPAIR/REVISION; Surgeon: Oskar Meyer MD; [facility]; Service: Vascular; Laterality: Left; Superficialization of brachiobasilic fistula and right IJ perm cath insertion Dialysis fistula creation 07/11/2012 Procedure: DIALYSIS CATHETER INSERTION; Surgeon: Oskar Meyer MD; Location: [facility] MAIN OR; Service: Vascular; Laterality: Left; removed dialysis catheter from left neck and placed new on in left chest, attempted in right neck but unable to place Av fistula placement Right 02/09/2014 Procedure: AV FISTULA; Surgeon: Oskar Meyer MD; Location: [facility] MAIN OR; Service: Vascul ar; Laterality: Right; Prior to Admission medications Medication Sig Start Date End Date Taking? Authorizing Provider acetaminophen (TYLENOL) 325 MG tablet Take 650 mg by mouth every 6 (six) hours as needed. I ndications: Pain Historical Provider albuterol (ACCUNEB) 1.25 MG/3ML nebulizer solution Take 3 mLs by nebulization every 4 (four ) hours as needed for Wheezing. 10/28/13 10/28/14 Karri Huff MD albuterol (PROVENTIL HFA) 108 (90 BASE) MCG/ACT inhaler Inhale 2 puffs into the lungs every 4 (four) hours as needed for Wheezing. 10/28/13 10/28/14 Karri Huff MD allopurinol (ZYLOPRIM) 100 MG tablet Take 100 mg by mouth daily. Indications: Primary Gout CLARENCE Earl amLODIPine (NORVASC) 10 MG tablet Take 10 mg by mouth daily. Historical Provider b complex-vitamin c-folic acid (NEPHRO-THU) 0.8 MG TABS Take 1 tablet by mouth daily. Historical Provider carvedilol (COREG) 3.125 MG tablet Take 3.125 mg by mouth 2 (two) times daily with meals. Historical Provider Cholecalciferol 2000 UNITS TABS Take 1 tablet by mouth daily. Historical Provider doxycycline (DORYX) [address] capsule Take 100 mg by mouth 2 (two) times daily. CLARENCE Rosario fluticasone-salmeterol (ADVAIR DISKUS) 250-50 MCG/DOSE Inhale 1 puff into the lungs 2 (two) times daily. 10/28/13 Karri Huff MD furosemide (LASIX) 20 MG tablet Take 20 mg by mouth daily. Historical Provider levothyroxine (SYNTHROID) 75 MCG tablet Take 75 mcg by mouth every morning before breakfast . Indications: Underactive Thyroid CLARENCE Earl loperamide (IMODIUM) 2 MG capsule Take 2 mg by mouth 4 (four) times daily as needed. Ind ications: Diarrhea Historical Provider montelukast (SINGULAIR) 10 MG tablet Take 1 tablet by mouth nightly. 10/28/13 10/28/14 Karri Huff MD RENVELA 800 MG tablet take 3 tablets by mouth three times a day WITH MEALS AND 1 TABLET WIT H SNACKS 01/14/14 Juan Timmons MD sevelamer (RENVELA) 800 MG tablet Take 2,400 mg by mouth 3 (three) times daily with meals. Historical Provider sevelamer (RENVELA) 800 MG tablet Take 800 mg by mouth as needed. With snacks CLARENCE Earl sodium bicarbonate 650 MG tablet Take 1,300 mg by mouth 2 (two) times daily. Historica l Provider Allergies Allergen Reactions Lisinopril Other (See [...] KIDS. CURRENTLY UNEMPLOYED, BEFOR E WORKED AT [employer] IN [place]. Quit METHAMPHETAMINES PER PATIENT after t he ARF in mar 2012. FATHER HAS COLON CANCER, HEART DISEASE, MOTHER 15 YEARS AGO. NO FH KIDNEY PROBLEMS. Family History Problem Relation Age of Onset Heart disease Mother Heart disease Father Diabetes Father Cancer Father colon cancer Review of Systems Positive for: Fevers, chills, cough, nausea No vomiting. No vision changes, difficulty breathing. No headache, chest pain, abdominal pain, weakness or rash. No difficulty with urination or bowel movements. No other complaints. See HPI for further relevant details. All systems otherwise negative, except as recorded above and as recorded in the HPI. Physical Exam Filed Vitals: 03/15/141916 BP: 104/51 Pulse: 96 Temp: 98.6 F (37 C) TempSrc: Oral Resp: 18 INTERPRETATION OF VITALS Pulse Oximetry interpretation: Normal Otherwise normal PHYSICAL EXAM Appearance: Alert. No acute distress. Head: Normal external exam. Eyes: EOMI, PERRL, no scleral icterus. ENT: Normal external ENT inspection. Neck: Supple. FROM. CVS: Normal heart rate and rhythm. Heart sounds normal. Pulses normal. Respiratory: No respiratory distress. No wheezing, rales, or rhonchi. Abdomen: Soft and nontender. No rebound or guarding. Genitourinary: Deferred. Back: Moves without difficulty. Skin: Skin warm and dry. Extremities: No deformity. No significant edema. Neuro: Moves all extremities. No gross deficit. Medical Decision Making and Emergency Department Course ED Department Course: 7:21 PM Carol Potter is a 48 y.o. male who presents with a chief complaint of fevers, chills, cough. Patient was diagnosis septic with a pneumonia and transferred here for further evaluation. He has already been treated and is currently hemodynamically stable. We will contact her [facility] service. We will continue to monitor him closely and reevaluate. 7:[address] Epstein ([facility]) who will see him for admission. Records Reviewed Old medical records. Previous electrocardiograms. Nursing notes. Previous radiology studies. Laboratory Evaluation Results None Lab Interpretation I have reviewed lab results from the emergency department workup and abnormal results have been posted to the chart. Pertinent positive and negative findings have been addressed appr opriately. Radiology and EKG Evaluation Imaging Results None ECG from 195: Sinus rhythm at 93 bpm. FL, QRS, QT, and axis are normal. No ST segment francis vations or depression. No significant Q waves. Good R wave progression through the precordia l leads. No STEMI criteria for ischemia. In comparison with an old ECG from 11/09/13 there are no significant changes. This study has been independently viewed and interpreted by me. ED Diagnoses Final diagnoses Sepsis Pneumonia ESRD on hemodialysis DM (diabetes mellitus) Disposition: ED Disposition Admit/Observation Bed request special needs: Active upper respiratory infection Diagnosis?: pneumonia, sepsis, elevated troponin, esrd on hd Follow-up Information None Discharge Medications: New Prescriptions No new medications This document has been prepared with a voice recognition system. The possibility of "sound alike" ball mill mixer errors, addition and/or deletions may occur. If there is any question p lease contact the author of the document. Procedures Additional Documentation Procedures Favio Salas MD 03/15/142014 onversion Transactio n, Provider Unknown - 03/15/2014 7:13 PM PDT ED Notes by Prisca Liu at 03/15/141912 Author: Prisca Liu Service: (none) Author Type: Sales/Marketing Filed: 03/15/141912 Date of Service: 03/15/141912 Status: Signed Regional Clinical Director: Prisca Liu (Sales/Marketing) Bed: 17 Expected date: 03/15/14 Expected time: 7:10 PM Means of arrival: Ambulance Comments: onver quique Transaction, Provider Unknown - 03/15/2014 6:09 PM PDT ED Notes by Tucker Garcia RN at 03/15/141808 Author: Tucker Garcia RN Service: (none) Author Type: Registered Nurse Filed: 03/15/141810 Date of Service: 03/15/141808 Status: Signed Regional Clinical Director: Tucker Garcia RN (Registered Nurse) Pt is a transfer from [facility] for sepsis, FUO, and ESRD/HD. ESRD/HD, last r un this AM, cardiac hx, diabetes, GI bleed, and hx meth use. Pt arrived at [facility] wi th c/o body aches and hot/cold flashes, also vomited earlier. Pt's highest temp noted at 10 3.1, pt a/ox4, emotionally labile, has not voided. Pt somewhat diaphoretic at departure. L actic acid 3.4, trop 0.2, wbc 10.9. Has HD port Lt subclavian area, not accessed at [facility]. Tucker Garcia RN 03/15/14 1811 docume nted in this encounter Miscellaneous Notes Plan of Care - Conversion Transaction, Provider Unknown - 03/19/2014 10:35 AM PDT Plan of Care by Devaughn Flores RN at 03/19/14 1035 Author: Devaughn Flores RN Service: (none) Author Type: Registered Nurse Filed: 03/19/14 1035 Date of Service: 03/19/14 1035 Status: Signed Regional Clinical Director: Devaughn Flores RN (Registered Nurse) Patient is doing well up walking frequently in good spirits and ready to go home lan o f Care - Elsie Sharma - 03/18/2014 5:14 PM PDTFormatting of this note might be diff erent from the original. Plan of Care by Elsie Sharma MD at 03/18/14 171 Author: Elsie Sharma MD Service: Infectious Disease Author Type: Physician Filed: 03/18/14 1716 Date of Service: 03/18/141713 Status: Signed Regional Clinical Director: Elsie Sharma MD (Physician) Blood cultures obtained on 03/15 have been reviewed. 2 sets, 4 out of 4 bottles grew Staphy lococcus aureus, susceptible to vancomycin, oxacillin, daptomycin, ciprofloxacin, levofloxac in, moxifloxacin, tigecycline, linezolid but resistant to clindamycin, doxycycline, tetracyc line and erythromycin. lan of Care - Conv ersion Transaction, Provider Unknown - 03/18/2014 8:55 AM PDT Plan of Care by Devaughn Flores RN at 03/18/14854 Author: Devaughn Flores RN Service: (none) Author Type: Registered Nurse Filed: 03/18/14854 Date of Service: 03/18/14854 Status: Signed Regional Clinical Director: Devaughn Flores RN (Registered Nurse) . docume nted in this encounter Plan of Treatment Not on filedocumented as of this encounter Procedures + +--------+ + + + | Procedure Name | Priori | Date/Time | Associated Diagnosis | Comments | | | ty | | | | + +--------+ + + + | EXTERNAL LAB: CBC | Routin | 03/20/2014 | | Results for this | | | e | 3:47 AM | | procedure are in the | | | | PDT | | results section. | + +--------+ + + + | BASIC METABOLIC | Routin | 03/20/2014 | | Results for this | | PANEL | e | 3:47 AM | | procedure are in the | | | | PDT | | results section. | + +--------+ + + + | EXTERNAL LAB: CBC | Routin | 03/19/2014 | | Results for this | | | e | 4:40 AM | | procedure are in the | | | | PDT | | results section. | + +--------+ + + + | BASIC METABOLIC | Routin | 03/19/2014 | | Results for this | | PANEL | e | 4:40 AM | | procedure are in the | | | | PDT | | results section. | + +--------+ + + + | CULTURE, BLOOD | STAT | 03/18/2014 | | Results for this | | | | 6:36 PM | | procedure are in the | | | | PDT | | results section. | + +--------+ + + + | XR CHEST 1 VIEW | Routin | 03/18/2014 | | Results for this | | | e | 5:55 AM | | procedure are in the | | | | PDT | | results section. | + +--------+ + + + | EXTERNAL LAB: CBC | Routin | 03/18/2014 | | Results for this | | | e | 4:33 AM | | procedure are in the | | | | PDT | | results section. | + +--------+ + + + | BASIC METABOLIC | Routin | 03/18/2014 | | Results for this | | PANEL | e | 4:33 AM | | procedure are in the | | | | PDT | | results section. | + +--------+ + + + | CULTURE, BLOOD, 2ND | Timed | 03/17/2014 | | Results for this | | SPECIMEN (NON-ORD) | | 1:54 PM | | procedure are in the | | | | PDT | | results section. | + +--------+ + + + | CULTURE, BLOOD | Timed | 03/17/2014 | | Results for this | | | | 1:51 PM | | procedure are in the | | | | PDT | | results section. | + +--------+ + + + | EXTERNAL LAB: CBC | Routin | 03/17/2014 | | Results for this | | | e | 4:59 AM | | procedure are in the | | | | PDT | | results section. | + +--------+ + + + | BASIC METABOLIC | Routin | 03/17/2014 | | Results for this | | PANEL | e | 4:59 AM | | procedure are in the | | | | PDT | | results section. | + +--------+ + + + | POC GLUCOSE | Routin | 03/16/2014 | | Results for this | | | e | 11:43 AM | | procedure are in the | | | | PDT | | results section. | + +--------+ + + + | EXTERNAL LAB: CBC | Routin | 03/16/2014 | | Results for this | | | e | 4:40 AM | | procedure are in the | | | | PDT | | results section. | + +--------+ + + + | PHOSPHORUS | Routin | 03/16/2014 | | Results for this | | | e | 4:40 AM | | procedure are in the | | | | PDT | | results section. | + +--------+ + + + | MAGNESIUM | Routin | 03/16/2014 | | Results for this | | | e | 4:40 AM | | procedure are in the | | | | PDT | | results section. | + +--------+ + + + | BASIC METABOLIC | Routin | 03/16/2014 | | Results for this | | PANEL | e | 4:40 AM | | procedure are in the | | | | PDT | | results section. | + +--------+ + + + | INFLUENZA A AND B | Timed | 03/15/2014 | | Results for this | | [place], [place] | | 8:57 PM | | procedure are in the | | | | PDT | | results section. | + +--------+ + + + | ECG 12 LEAD | Routin | 03/15/2014 | | Results for this | | | e | 7:52 PM | | procedure are in the | | | | PDT | | results section. | + +--------+ + + + documented in this encounter Results External Lab: CBC (03/20/2014 3:47 AM PDT) + + + + + + | Component | Value | Ref Range | Performed | Pathologist | | | | | At | Signature | + + + + + + | WBC | 6.5Comment: Testing | 3.8 - 11.0 K/uL | EXTERNAL | | | | performed at [facility], [address] | | LAB | | | | [address], | | | | | | [place] [address] | | | | + + + + + + | Non- | 3.53 (L)Comment: Testing | 4.20 - 5.70 | EXTERNAL | | | Red Blood | performed at [facility], [address] | M/uL | LAB | | | Cells | [address], | | | | | Counted | [place] [address] | | | | + + + + + + | Hemoglobin | 10.8 (L)Comment: Testing | 13.2 - 17.0 | EXTERNAL | | | | performed at [facility], [address] | g/dL | LAB | | | | [address], | | | | | | [place] [address] | | | | + + + + + + | Hematocrit, | 31.6 (L)Comment: Testing | 39.0 - 50.0 % | EXTERNAL | | | POC | performed at [facility], [address] | | LAB | | | | [address], | | | | | | [place] [address] | | | | + + + + + + | MCV | 89.5Comment: Testing | 80.0 - 100.0 fl | EXTERNAL | | | | performed at [facility], [address] | | LAB | | | | [address], | | | | | | [place] [address] | | | | + + + + + + | MCH | 30.5Comment: Testing | 27.0 - 34.0 pg | EXTERNAL | | | | performed at [facility], [address] | | LAB | | | | [address], | | | | | | [place] [address] | | | | + + + + + + | MCHC | 34.0Comment: Testing | 32.0 - 35.5 | EXTERNAL | | | | performed at [facility], [address] | g/dL | LAB | | | | [address], | | | | | | [place] [address] | | | | + + + + + + | RDW-CV | 47.3Comment: Testing | 37 - 53 fl | EXTERNAL | | | | performed at [facility], [address] | | LAB | | | | [address], | | | | | | [place] [address] | | | | + + + + + + | Platelet | 167Comment: Testing | 150 - 400 K/uL | EXTERNAL | | | Count | performed at [facility], [address] | | LAB | | | Plasma | [address], | | | | | | [place] [address] | | | | + + + + + + | MPV | 8.0Comment: Testing | fl | EXTERNAL | | | | performed at [facility], [address] | | LAB | | | | [address], | | | | | | [place] [address] | | | | + + + + + + | Differentia | AUTOMATEDComment: | | EXTERNAL | | | l Type | Testing performed at | | LAB | | | | [facility], [address] | | | | | | [place] | | | | | | [address] | | | | + + + + + + | % Segmented | 62.6Comment: Testing | % | EXTERNAL | | | | performed at [facility], [address] | | LAB | | | Neutrophils | [address], | | | | | | [place] [address] | | | | + + + + + + | % | 14.8Comment: Testing | % | EXTERNAL | | | Lymphocytes | performed at [facility], [address] | | LAB | | | | [address], | | | | | | [place] [address] | | | | + + + + + + | % Monocytes | 20.2Comment: Testing | % | EXTERNAL | | | | performed at [facility], [address] | | LAB | | | [address], | | | | | | [place] [address] | | | | + + + + + + | % | 1.7Comment: Testing | % | EXTERNAL | | | Eosinophils | performed at [facility], [address] | | LAB | | | | [address], | | | | | | [place] [address] | | | | + + + + + + | % Basophils | 0.7Comment: Testing | % | EXTERNAL | | | | performed at [facility], [address] | | LAB | | | | [address], | | | | | | [place] [address] | | | | + + + + + + | Absolute | 4.1Comment: Testing | 1.9 - 7.4 K/uL | EXTERNAL | | | Segmented | performed at [facility], [address] | | LAB | | | Neutrophils | [address], | | | | | | [place] [address] | | | | + + + + + + | Absolute | 1.0Comment: Testing | 1.0 - 3.9 K/uL | EXTERNAL | | | Lymphocytes | performed at [facility], [address] | | LAB | | | | [address], | | | | | | [place] [address] | | | | + + + + + + | Absolute | 1.3 (H)Comment: Testing | 0 - 0.8 K/uL | EXTERNAL | | | Monocytes | performed at [facility], [address] | | LAB | | | | [address], | | | | | | [place] [address] | | | | + + + + + + | Absolute | 0.1Comment: Testing | 0 - 0.5 K/uL | EXTERNAL | | | Eosinophils | performed at [facility], [address] | | LAB | | | | [address], | | | | | | [place] [address] | | | | + + + + + + | Absolute | 0.0Comment: Testing | 0 - 0.1 K/uL | EXTERNAL | | | Basophils | performed at [facility], [address] | | LAB | | | | [address], | | | | | | [place] [address] | | | | + + + [...] + +---------+ + + Basic Metabolic Panel (03/20/2014 3:47 AM PDT) + + + + + + | Component | Value | Ref Range | Performed | Pathologist | | | | | At | Signature | + + + + + + | Na | 129 (L)Comment: Testing | 135 - 143 | EXTERNAL | | | | performed at [facility], [address] | mmol/L | LAB | | | | [address], | | | | | | [place] [address] | | | | + + + + + + | K | 3.6Comment: Testing | 3.5 - 4.9 | EXTERNAL | | | | performed at [facility], [address] | mmol/L | LAB | | | | [address], | | | | | | [place] [address] | | | | + + + + + + | Cl | 97 (L)Comment: Testing | 99 - 109 mmol/L | EXTERNAL | | | | performed at [facility], [address] | | LAB | | | | [address], | | | | | | [place] [address] | | | | + + + + + + | CO2 | 25Comment: Testing | 23 - 32 mmol/L | EXTERNAL | | | | performed at [facility], [address] | | LAB | | | | [address], | | | | | | [place] [address] | | | | + + + + + + | Anion Gap | 11Comment: Testing | 5 - 20 mmol/L | EXTERNAL | | | | performed at [facility], [address] | | LAB | | | | [address], | | | | | | [place] [address] | | | | + + + + + + | Glucose, | 91Comment: Testing | 65 - 99 mg/dL | EXTERNAL | | | Fasting | performed at [facility], [address] | | LAB | | | | [address], | | | | | | [place] [address] | | | | + + + + + + | BUN | 27 (H)Comment: Testing | 8 - 25 mg/dL | EXTERNAL | | | | performed at [facility], [address] | | LAB | | | | [address], | | | | | | [place] [address] | | | | + + + + + + | Creatinine | 4.91 (H)Comment: Testing | 0.70 - 1.30 | EXTERNAL | | | | performed at [facility], [address] | mg/dL | LAB | | | | [address], | | | | | | [place] [address] | | | | + + + + + + | BUN/Creatin | 5Comment: Testing | | EXTERNAL | | | ine Ratio | performed at [facility], [address] | | LAB | | | | [address], | | | | | | [place] [address] | | | | + + + + + + | Calcium | 8.1 (L)Comment: Testing | 8.5 - 10.2 | EXTERNAL | | | | performed at [facility], [address] | mg/dL | LAB | | | | [address], | | | | | | [place] [address] | | | | + + + + + + | Estimated | 13 (L)Comment: GFR <60: | mL/min/1.73m2 | EXTERNAL [...] W | | | | | | [address], | | | | | | [place] [address] | | | | + + + [...] + +---------+ + + External Lab: CBC (03/19/2014 4:40 AM PDT) + + + + + + | Component | Value | Ref Range | Performed | Pathologist | | | | | At | Signature | + + + + + + | WBC | 9.2Comment: Testing | 3.8 - 11.0 K/uL | EXTERNAL | | | | performed at [facility], [address] | | LAB | | | | [address], | | | | | | [place] [address] | | | | + + + + + + | Non- | 3.50 (L)Comment: Testing | 4.20 - 5.70 | EXTERNAL | | | Red Blood | performed at [facility], [address] | [address]/uL | LAB | | | Cells | [address], | | | | | Counted | [place] [address] | | | | + + + + + + | Hemoglobin | 10.6 (L)Comment: Testing | 13.2 - 17.0 | EXTERNAL | | | | performed at [facility], [address] | g/dL | LAB | | | | [address], | | | | | | [place] [address] | | | | + + + + + + | Hematocrit, | 31.2 (L)Comment: Testing | 39.0 - 50.0 % | EXTERNAL | | | POC | performed at [facility], [address] | | LAB | | | | [address], | | | | | | [place] [address] | | | | + + + + + + | MCV | 89.1Comment: Testing | 80.0 - 100.0 fl | EXTERNAL | | | | performed at [facility], [address] | | LAB | | | | [address], | | | | | | [place] [address] | | | | + + + + + + | MCH | 30.2Comment: Testing | 27.0 - 34.0 pg | EXTERNAL | | | | performed at [facility], [address] | | LAB | | | | [address], | | | | | | [place] [address] | | | | + + + + + + | MCHC | 33.9Comment: Testing | 32.0 - 35.5 | EXTERNAL | | | | performed at [facility], [address] | g/dL | LAB | | | | [address], | | | | | | [place] [address] | | | | + + + + + + | RDW-CV | 47.7Comment: Testing | 37 - 53 fl | EXTERNAL | | | | performed at [facility], [address] | | LAB | | | | [address], | | | | | | [place] [address] | | | | + + + + + + | Platelet | 131 (L)Comment: Testing | 150 - 400 K/uL | EXTERNAL | | | Count | performed at [facility], [address] | | LAB | | | Plasma | [address], | | | | | | [place] [address] | | | | + + + + + + | MPV | 8.6Comment: Testing | fl | EXTERNAL | | | | performed at [facility], [address] | | LAB | | | | [address], | | | | | | [place] [address] | | | | + + + + + + | Differentia | AUTOMATEDComment: | | EXTERNAL | | | l Type | Testing performed at | | LAB | | | | [facility], [address] | | | | | | [place] | | | | | | [address] | | | | + + + + + + | % Segmented | 72.3Comment: Testing | % | EXTERNAL | | | | performed at [facility], [address] | | LAB | | | Neutrophils | [address], | | | | | | [place] [address] | | | | + + + + + + | % | 11.9Comment: Testing | % | EXTERNAL | | | Lymphocytes | performed at [facility], [address] | | LAB | | | | [address], | | | | | | [place] [address] | | | | + + + + + + | % Monocytes | 14.2Comment: Testing | % | EXTERNAL | | | | performed at [facility], [address] | | LAB | | | | [address], | | | | | | [place] [address] | | | | + + + + + + | % | 1.0Comment: Testing | % | EXTERNAL | | | Eosinophils | performed at [facility], [address] | | LAB | | | | [address], | | | | | | [place] [address] | | | | + + + + + + | % Basophils | 0.6Comment: Testing | % | EXTERNAL | | | | performed at [facility], [address] | | LAB | | | | [address], | | | | | | [place] [address] | | | | + + + + + + | Absolute | 6.6Comment: Testing | 1.9 - 7.4 K/uL | EXTERNAL | | | Segmented | performed at [facility], [address] | | LAB | | | Neutrophils | [address], | | | | | | [place] [address] | | | | + + + + + + | Absolute | 1.1Comment: Testing | 1.0 - 3.9 K/uL | EXTERNAL | | | Lymphocytes | performed at [facility], [address] | | LAB | | | | [address], | | | | | | [place] [address] | | | | + + + + + + | Absolute | 1.3 (H)Comment: Testing | 0 - 0.8 K/uL | EXTERNAL | | | Monocytes | performed at [facility], [address] | | LAB | | | | [address], | | | | | | [place] [address] | | | | + + + + + + | Absolute | 0.1Comment: Testing | 0 - 0.5 K/uL | EXTERNAL | | | Eosinophils | performed at [facility], [address] | | LAB | | | | [address], | | | | | | [place] [address] | | | | + + + + + + | Absolute | 0.1Comment: Testing | 0 - 0.1 K/uL | EXTERNAL | | | Basophils | performed at [facility], [address] | | LAB | | | | [address], | | | | | | [place] [address] | | | | + + + [...] + +---------+ + + Basic Metabolic Panel (03/19/2014 4:40 AM PDT) + + + + + + | Component | Value | Ref Range | Performed | Pathologist | | | | | At | Signature | + + + + + + | Na | 128 (L)Comment: Testing | 135 - 143 | EXTERNAL | | | | performed at [facility], [address] | mmol/L | LAB | | | | [address], | | | | | | [place] [address] | | | | + + + + + + | K | 3.6Comment: Testing | 3.5 - 4.9 | EXTERNAL | | | | performed at [facility], [address] | mmol/L | LAB | | | | [address], | | | | | | [place] [address] | | | | + + + + + + | Cl | 94 (L)Comment: Testing | 99 - 109 mmol/L | EXTERNAL | | | | performed at [facility], [address] | | LAB | | | | [address], | | | | | | [place] [address] | | | | + + + + + + | CO2 | 23Comment: Testing | 23 - 32 mmol/L | EXTERNAL | | | | performed at [facility], [address] | | LAB | | | | [address], | | | | | | [place] [address] | | | | + + + + + + | Anion Gap | 15Comment: Testing | 5 - 20 mmol/L | EXTERNAL | | | | performed at [facility], [address] | | LAB | | | | [address], | | | | | | [place] [address] | | | | + + + + + + | Glucose, | 127 (H)Comment: Testing | 65 - 99 mg/dL | EXTERNAL | | | Fasting | performed at [facility], [address] | | LAB | | | | [address], | | | | | | [place] [address] | | | | + + + + + + | BUN | 49 (H)Comment: Testing | 8 - 25 mg/dL | EXTERNAL | | | | performed at [facility], [address] | | LAB | | | | [address], | | | | | | [place] [address] | | | | + + + + + + | Creatinine | 7.33 (H)Comment: Testing | 0.70 - 1.30 | EXTERNAL | | | | performed at [facility], [address] | mg/dL | LAB | | | | [address], | | | | | | [place] [address] | | | | + + + + + + | BUN/Creatin | 7Comment: Testing | | EXTERNAL | | | ine Ratio | performed at [facility], [address] | | LAB | | | | [address], | | | | | | [place] [address] | | | | + + + + + + | Calcium | 8.6Comment: Testing | 8.5 - 10.2 | EXTERNAL | | | | performed at [facility], [address] | mg/dL | LAB | | | | [address], | | | | | | [place] [address] | | | | + + + [...] | | | | | | at [facility], [address] | | | | | | [address], | | | | | | [place] [address] | | | | + + + + + + + + | Specimen | + + | Blood specimen | | (specimen) | + + + +---------+ + + | Performing | Address | City/State/Zipcode | Phone Number | | Organization | | | | + +---------+ + + | EXTERNAL LAB | | | | + +---------+ + + Culture, Blood (03/18/2014 6:36 PM PDT) + + | Specimen | + + | Blood specimen | | (specimen) | + + + + + | Narrative | Performed At | + + + | Specimen Description BLOOD, PERIPHERAL DRAW | EXTERNAL LAB | | SPECIAL REQUESTS L HAND | | | Testing performed at [facility];[address] | | | [facility];[place] [address] CULTURE | | | NO GROWTH | | | Testing performed at [facility], [address] [facility], [place], [place] | | | [address] | | + + + + +---------+ + + | Performing | Address | City/State/Zipcode | Phone Number | | Organization | | | | + +---------+ + + | EXTERNAL LAB | | | | + +---------+ + + XR Chest 1 Vw (03/18/2014 5:55 AM PDT) + + | Specimen | + + | | + + + + + | Impressions | Performed At | + + + | FINDINGS/ IMPRESSION: Left central venous catheter tip within | | | the right atrium. No pneumothorax, no pleural effusion. Left | | | lower lobe consolidation consistent with pneumonia or aspiration. | | | No acute osseous abnormality. | | + + + + + + | Narrative | Performed At | + + + | [facility] 1965 48 years XR CHEST 1 VIEW 03/18/2014 5:55 AM | | | INDICATION: Pneumonia COMPARISON: October 27, 2013 TECHNIQUE: | | | Chest 1 view, AP view of the chest | | + + + + + | Procedure Note | + + | Khalif Palm - 02/06/2019 10:59 AM PDT [facility] | | 1965 | | 48 years | | XR CHEST 1 VIEW | | 03/18/2014 5:55 AM | | | | INDICATION: Pneumonia | | | | COMPARISON: October 27, 2013 | | | | TECHNIQUE: Chest 1 view, AP view of the chest | | | | IMPRESSION: | | FINDINGS/ IMPRESSION: | | | | Left central venous catheter tip within the right atrium. | | | | No pneumothorax, no pleural effusion. | | | | Left lower lobe consolidation consistent with pneumonia or aspiration. | | | | No acute osseous abnormality. | | | | | | | + + External Lab: CBC (03/18/2014 4:33 AM PDT) + + + + + + | Component | Value | Ref Range | Performed | Pathologist | | | | | At | Signature | + + + + + + | WBC | 9.0Comment: Testing | 3.8 - 11.0 K/uL | EXTERNAL | | | | performed at [facility], [address] | | LAB | | | | [address], | | | | | | [place] [address] | | | | + + + + + + | Non- | 3.28 (L)Comment: Testing | 4.20 - 5.70 | EXTERNAL | | | Red Blood | performed at [facility], [address] | M/uL | LAB | | | Cells | [address], | | | | | Counted | [place] [address] | | | | + + + + + + | Hemoglobin | 9.8 (L)Comment: Testing | 13.2 - 17.0 | EXTERNAL | | | | performed at [facility], [address] | g/dL | LAB | | | | [address], | | | | | | [place] [address] | | | | + + + + + + | Hematocrit, | 29.6 (L)Comment: Testing | 39.0 - 50.0 % | EXTERNAL | | | POC | performed at [facility], [address] | | LAB | | | | [address], | | | | | | [place] [address] | | | | + + + + + + | MCV | 90.2Comment: Testing | 80.0 - 100.0 fl | EXTERNAL | | | | performed at [facility], [address] | | LAB | | | | [address], | | | | | | [place] [address] | | | | + + + + + + | MCH | 29.8Comment: Testing | 27.0 - 34.0 pg | EXTERNAL | | | | performed at [facility], [address] | | LAB | | | | [address], | | | | | | [place] [address] | | | | + + + + + + | MCHC | 33.1Comment: Testing | 32.0 - 35.5 | EXTERNAL | | | | performed at [facility], [address] | g/dL | LAB | | | | [address], | | | | | | [place] [address] | | | | + + + + + + | RDW-CV | 47.3Comment: Testing | 37 - 53 fl | EXTERNAL | | | | performed at [facility], [address] | | LAB | | | | [address], | | | | | | [place] [address] | | | | + + + + + + | Platelet | 93 (L)Comment: Testing | 150 - 400 K/uL | EXTERNAL | | | Count | performed at [facility], [address] | | LAB | | | Plasma | [address], | | | | | | [place] [address] | | | | + + + + + + | MPV | 8.9Comment: Testing | fl | EXTERNAL | | | | performed at [facility], [address] | | LAB | | | | [address], | | | | | | [place] [address] | | | | + + + + + + | Differentia | MANUALComment: Testing | | EXTERNAL | | | l Type | performed at [facility], [address] | | LAB | | | | [address], | | | | | | [place] [address] | | | | + + + + + + | Segmented | 78Comment: Testing | % | EXTERNAL | | | Neutrophils | performed at [facility], [address] | | LAB | | | Manual | [address], | | | | | | [place] [address] | | | | + + + + + + | % Bands | 1Comment: Testing | % | EXTERNAL | | | | performed at [facility], [address] | | LAB | | | | [address], | | | | | | [place] [address] | | | | + + + + + + | Lymphocytes | 7Comment: Testing | % | EXTERNAL | | | Manual | performed at [facility], [address] | | LAB | | | | [address], | | | | | | [place] [address] | | | | + + + + + + | Monocytes | 14Comment: Testing | % | EXTERNAL | | | Manual | performed at [facility], [address] | | LAB | | | | [address], | | | | | | [place] [address] | | | | + + + + + + | Absolute | 7.0Comment: Testing | 1.9 - 7.4 K/uL | EXTERNAL | | | Neutrophils | performed at [facility], [address] | | LAB | | | | [address], | | | | | | [place] [address] | | | | + + + + + + | Bands | 0.1Comment: Testing | 0 - 0.2 K/uL | EXTERNAL | | | Manual | performed at [facility], [address] | | LAB | | | | [address], | | | | | | [place] [address] | | | | + + + + + + | Absolute | 0.6 (L)Comment: Testing | 1.0 - 3.9 K/uL | EXTERNAL | | | Lymphocytes | performed at [facility], [address] | | LAB | | | | [address], | | | | | | [place] [address] | | | | + + + + + + | Absolute | 1.3 (H)Comment: Testing | 0 - 0.8 K/uL | EXTERNAL | | | Monocytes | performed at [facility], [address] | | LAB | | | | [address], | | | | | | [place] [address] | | | | + + + + + + | RBC | RBC AND PLT MORPHOLOGY | | EXTERNAL | | | Morphology | APPEAR NORMALComment: | | LAB | | | | Testing performed at | | | | | | [facility], [address] | | | | | | [place] | | | | | | [address] | | | | + + + [...] + +---------+ + + Basic Metabolic Panel (03/18/2014 4:33 AM PDT) + + + + + + | Component | Value | Ref Range | Performed | Pathologist | | | | | At | Signature | + + + + + + | Na | 127 (L)Comment: Testing | 135 - 143 | EXTERNAL | | | | performed at [facility], [address] | mmol/L | LAB | | | | [address], | | | | | | [place] [address] | | | | + + + + + + | K | 3.5Comment: Testing | 3.5 - 4.9 | EXTERNAL | | | | performed at [facility], [address] | mmol/L | LAB | | | | [address], | | | | | | [place] [address] | | | | + + + + + + | Cl | 93 (L)Comment: Testing | 99 - 109 mmol/L | EXTERNAL | | | | performed at [facility], [address] | | LAB | | | | [address], | | | | | | [place] [address] | | | | + + + + + + | CO2 | 27Comment: Testing | 23 - 32 mmol/L | EXTERNAL | | | | performed at [facility], [address] | | LAB | | | | [address], | | | | | | [place] [address] | | | | + + + + + + | Anion Gap | 11Comment: Testing | 5 - 20 mmol/L | EXTERNAL | | | | performed at [facility], [address] | | LAB | | | | [address], | | | | | | [place] [address] | | | | + + + + + + | Glucose, | 123 (H)Comment: Testing | 65 - 99 mg/dL | EXTERNAL | | | Fasting | performed at [facility], [address] | | LAB | | | | [address], | | | | | | [place] [address] | | | | + + + + + + | BUN | 31 (H)Comment: Testing | 8 - 25 mg/dL | EXTERNAL | | | | performed at [facility], [address] | | LAB | | | | [address], | | | | | | [place] [address] | | | | + + + + + + | Creatinine | 5.28 (H)Comment: Testing | 0.70 - 1.30 | EXTERNAL | | | | performed at [facility], [address] | mg/dL | LAB | | | | [address], | | | | | | [place] [address] | | | | + + + + + + | BUN/Creatin | 6Comment: Testing | | EXTERNAL | | | ine Ratio | performed at [facility], [address] | | LAB | | | | [address], | | | | | | [place] [address] | | | | + + + + + + | Calcium | 7.8 (L)Comment: Testing | 8.5 - 10.2 | EXTERNAL | | | | performed at [facility], [address] | mg/dL | LAB | | | | [address], | | | | | | [place] [address] | | | | + + + + + + | Estimated | 12 (L)Comment: GFR <60: | mL/min/1.73m2 | EXTERNAL [...] | | | | | | at [facility], [address] | | | | | | [facility], | | | | | | [place] [address] | | | | + + + + + + + + | Specimen | + + | Blood specimen | | (specimen) | + + + +---------+ + + | Performing | Address | City/State/Zipcode | Phone Number | | Organization | | | | + +---------+ + + | EXTERNAL LAB | | | | + +---------+ + + Culture, Blood, 2nd Specimen (03/17/2014 1:54 PM PDT) + + | Specimen | + + | Blood specimen | | (specimen) | + + + + + | Narrative | Performed At | + + + | Specimen Description BLOOD, PERIPHERAL DRAW | EXTERNAL LAB | | SPECIAL REQUESTS L HAND | | | Testing performed at [facility];[address] | | | [facility];[place] [address] CULTURE | | | NO GROWTH | | | Testing performed at [facility], [address] [facility], [place], [place] | | | [address] | | + + + + +---------+ + + | Performing | Address | City/State/Zipcode | Phone Number | | Organization | | | | + +---------+ + + | EXTERNAL LAB | | | | + +---------+ + + Culture, Blood (03/17/2014 1:51 PM PDT) + + | Specimen | + + | Blood specimen | | (specimen) | + + + + + | Narrative | Performed At | + + + | Specimen Description BLOOD, LINE DRAW SPECIAL | EXTERNAL LAB | | REQUESTS DIAL.LINE LD3 GRAM STAIN | | | GRAM-POSITIVE COCCUSAbnormal | | | SEEN IN AEROBIC BOTTLE | | | SMEAR RESULTS CALLED TO | | | AND READ BACK BY: | | | BONNIE Martinez IN 6RP ON 03/18/14 AT [address] [employer] CULTURE | | | STAPHYLOCOCCUS AUREUSAbnormal | | | FINDING OF ORGANISM GROWTHAbnormal | | | TIME TO DETECTION: | | | 0.95 DAYS | | | Testing performed at [facility], | | | [address] [place] [address] Suscepibility for - | | | STAPHYLOCOCCUS AUREUS Penicillin G | | | RESISTANT Resistant Gentamicin | | | SUSCEPTIBLESensitive Moxifloxacin | | | SUSCEPTIBLESensitive Oxacillin | | | SUSCEPTIBLESensitive Tetracycline RESISTANT | | | Resistant Trimethoprim + SulfamethoxazoleSUSCEPTIBLESensitive | | | Vancomycin SUSCEPTIBLESensitive | | + + + + +---------+ + + | Performing | Address | City/State/Zipcode | Phone Number | | Organization | | | | + +---------+ + + | EXTERNAL LAB | | | | + +---------+ + + External Lab: REBECA (03/17/2014 4:59 AM PDT) + + + + + + | Component | Value | Ref Range | Performed | Pathologist | | | | | At | Signature | + + + + + + | WBC | 9.6Comment: Testing | 3.8 - 11.0 K/uL | EXTERNAL | | | | performed at [facility], [address] | | LAB | | | | [address], | | | | | | [place] [address] | | | | + + + + + + | Non- | 3.57 (L)Comment: Testing | 4.20 - 5.70 | EXTERNAL | | | Red Blood | performed at [facility], [address] | M/uL | LAB | | | Cells | [address], | | | | | Counted | [place] [address] | | | | + + + + + + | Hemoglobin | 10.6 (L)Comment: Testing | 13.2 - 17.0 | EXTERNAL | | | | performed at [facility], [address] | g/dL | LAB | | | | [address], | | | | | | [place] [address] | | | | + + + + + + | Hematocrit, | 32.4 (L)Comment: Testing | 39.0 - 50.0 % | EXTERNAL | | | POC | performed at [facility], [address] | | LAB | | | | [address], | | | | | | [place] [address] | | | | + + + + + + | MCV | 90.8Comment: Testing | 80.0 - 100.0 fl | EXTERNAL | | | | performed at [facility], [address] | | LAB | | | | [address], | | | | | | [place] [address] | | | | + + + + + + | MCH | 29.8Comment: Testing | 27.0 - 34.0 pg | EXTERNAL | | | | performed at [facility], [address] | | LAB | | | | [address], | | | | | | [place] [address] | | | | + + + + + + | MCHC | 32.8Comment: Testing | 32.0 - 35.5 | EXTERNAL | | | | performed at [facility], [address] | g/dL | LAB | | | | [address], | | | | | | [place] [address] | | | | + + + + + + | RDW-CV | 48.6Comment: Testing | 37 - 53 fl | EXTERNAL | | | | performed at [facility], [address] | | LAB | | | | [address], | | | | | | [place] [address] | | | | + + + + + + | Platelet | 73 (L)Comment: Testing | 150 - 400 K/uL | EXTERNAL | | | Count | performed at [facility], [address] | | LAB | | | Plasma | [address], | | | | | | [place] [address] | | | | + + + + + + | MPV | 9.0Comment: Testing | fl | EXTERNAL | | | | performed at [facility], [address] | | LAB | | | | [address], | | | | | | [place] [address] | | | | + + + + + + | Differentia | MANUALComment: Testing | | EXTERNAL | | | l Type | performed at [facility], [address] | | LAB | | | [address], | | | | | | [place] [address] | | | | + + + + + + | Segmented | 69Comment: Testing | % | EXTERNAL | | | Neutrophils | performed at [facility], [address] | | LAB | | | Manual | [address], | | | | | | [place] [address] | | | | + + + + + + | % Bands | 15Comment: Testing | % | EXTERNAL | | | | performed at [facility], [address] | | LAB | | | | [address], | | | | | | [place] [address] | | | | + + + + + + | % | 1Comment: Testing | % | EXTERNAL | | | Metamyelocy | performed at [facility], [address] | | LAB | | | [address] | [address], | | | | | | [place] [address] | | | | + + + + + + | Lymphocytes | 11Comment: Testing | % | EXTERNAL | | | Manual | performed at [facility], [address] | | LAB | | | | [address], | | | | | | [place] [address] | | | | + + + + + + | Monocytes | 4Comment: Testing | % | EXTERNAL | | | Manual | performed at [facility], [address] | | LAB | | | | [address], | | | | | | [place] [address] | | | | + + + + + + | Absolute | 6.6Comment: Testing | 1.9 - 7.4 K/uL | EXTERNAL | | | Neutrophils | performed at [facility], [address] | | LAB | | | | [address], | | | | | | [place] [address] | | | | + + + + + + | Bands | 1.4 (H)Comment: Testing | 0 - 0.2 K/uL | EXTERNAL | | | Manual | performed at [facility], [address] | | LAB | | | | [address], | | | | | | [place] [address] | | | | + + + + + + | Absolute | 0.1 (H)Comment: Testing | K/uL | EXTERNAL | | | Metamyelocy | performed at [facility], [address] | | LAB | | | [address] | [address], | | | | | | [place] [address] | | | | + + + + + + | Absolute | 1.1Comment: Testing | 1.0 - 3.9 K/uL | EXTERNAL | | | Lymphocytes | performed at [facility], [address] | | LAB | | | | [address], | | | | | | [place] [address] | | | | + + + + + + | Absolute | 0.4Comment: Testing | 0 - 0.8 K/uL | EXTERNAL | | | Monocytes | performed at [facility], [address] | | LAB | | | | [address], | | | | | | [place] [address] | | | | + + + + + + | RBC | RBC AND PLT MORPHOLOGY | | EXTERNAL | | | Morphology | APPEAR NORMALComment: | | LAB | | | | Testing performed at | | | | | | [facility], [address] | | | | | | [place] | | | | | | [address] | | | | + + + [...] + +---------+ + + Basic Metabolic Panel (03/17/2014 4:59 AM PDT) + + + + + + | Component | Value | Ref Range | Performed | Pathologist | | | | | At | Signature | + + + + + + | Na | 127 (L)Comment: Testing | 135 - 143 | EXTERNAL | | | | performed at [facility], [address] | mmol/L | LAB | | | | [address], | | | | | | [place] [address] | | | | + + + + + + | K | 3.9Comment: Testing | 3.5 - 4.9 | EXTERNAL | | | | performed at [facility], [address] | mmol/L | LAB | | | | [address], | | | | | | [place] [address] | | | | + + + + + + | Cl | 91 (L)Comment: Testing | 99 - 109 mmol/L | EXTERNAL | | | | performed at [facility], [address] | | LAB | | | | [address], | | | | | | [place] [address] | | | | + + + + + + | CO2 | 25Comment: Testing | 23 - 32 mmol/L | EXTERNAL | | | | performed at [facility], [address] | | LAB | | | | [address], | | | | | | [place] [address] | | | | + + + + + + | Anion Gap | 15Comment: Testing | 5 - 20 mmol/L | EXTERNAL | | | | performed at [facility], [address] | | LAB | | | | [address], | | | | | | [place] [address] | | | | + + + + + + | Glucose, | 108 (H)Comment: Testing | 65 - 99 mg/dL | EXTERNAL | | | Fasting | performed at [facility], [address] | | LAB | | | | [address], | | | | | | [place] [address] | | | | + + + + + + | BUN | 55 (H)Comment: Testing | 8 - 25 mg/dL | EXTERNAL | | | | performed at [facility], [address] | | LAB | | | | [address], | | | | | | [place] [address] | | | | + + + + + + | Creatinine | 8.10 (H)Comment: Testing | 0.70 - 1.30 | EXTERNAL | | | | performed at [facility], [address] | mg/dL | LAB | | | | [address], | | | | | | [place] [address] | | | | + + + + + + | BUN/Creatin | 7Comment: Testing | | EXTERNAL | | | ine Ratio | performed at [facility], [address] | | LAB | | | | [address], | | | | | | [place] [address] | | | | + + + + + + | Calcium | 8.2 (L)Comment: Testing | 8.5 - 10.2 | EXTERNAL | | | | performed at [facility], [address] | mg/dL | LAB | | | | [address], | | | | | | [place] [address] | | | | + + + [...] W | | | | | | [address], | | | | | | [place] [address] | | | | + + + + + + + + | Specimen | + + | Blood specimen | | (specimen) | + + + +---------+ + + | Performing | Address | City/State/Zipcode | Phone Number | | Organization | | | | + +---------+ + + | EXTERNAL LAB | | | | + +---------+ + + POC Glucose (03/16/2014 11:43 AM PDT) + + + + + + | Component | Value | Ref Range | Performed | Pathologist | | | | | At | Signature | + + + + + + | Glucose, | 161 (H)Comment: Testing | 65 - 99 mg/dL | EXTERNAL | | | Fingerstick | performed at [facility];[address] | | LAB | | | | [address];[place] | | | | | | [address] | | | | + + + + + + + + | Specimen | + + | | + + + +---------+ + + | Performing | Address | City/State/Zipcode | Phone Number | | Organization | | | | + +---------+ + + | EXTERNAL LAB | | | | + +---------+ + + External Lab: CBC (03/16/2014 4:40 AM PDT) + + + + + + | Component | Value | Ref Range | Performed | Pathologist | | | | | At | Signature | + + + + + + | WBC | 11.9 (H)Comment: Testing | 3.8 - 11.0 K/uL | EXTERNAL | | | | performed at [facility] | | LAB | | | | [address];[place] | | | | | | [address] | | | | + + + + + + | Non- | 3.62 (L)Comment: Testing | 4.20 - 5.70 | EXTERNAL | | | Red Blood | performed at [facility];[address] | M/uL | LAB | | | Cells | [address];[place] | | | | | Counted | [id number] | | | | + + + + + + | Hemoglobin | 10.9 (L)Comment: Testing | 13.2 - 17.0 | EXTERNAL | | | | performed at [facility];[address] | g/dL | LAB | | | | [address];[place] | | | | | | [address] | | | | + + + + + + | Hematocrit, | 32.5 (L)Comment: Testing | 39.0 - 50.0 % | EXTERNAL | | | POC | performed at [facility];[address] | | LAB | | | | [address];[place] | | | | | | [address] | | | | + + + + + + | MCV | 89.9Comment: Testing | 80.0 - 100.0 fl | EXTERNAL | | | | performed at [facility];[address] | | LAB | | | | [address];[place] | | | | | | [address] | | | | + + + + + + | MCH | 30.0Comment: Testing | 27.0 - 34.0 pg | EXTERNAL | | | | performed at [facility];[address] | | LAB | | | | [address];[place] | | | | | | [address] | | | | + + + + + + | MCHC | 33.4Comment: Testing | 32.0 - 35.5 | EXTERNAL | | | | performed at [facility];[address] | g/dL | LAB | | | | [address];[place] | | | | | | [address] | | | | + + + + + + | RDW-CV | 49.4Comment: Testing | 37 - 53 fl | EXTERNAL | | | | performed at [facility];[address] | | LAB | | | | [address];[place] | | | | | | [address] | | | | + + + + + + | Platelet | 81 (L)Comment: Testing | 150 - 400 K/uL | EXTERNAL | | | Count | performed at [facility];[address] | | LAB | | | Plasma | [address];[place] | | | | | | [address] | | | | + + + + + + | MPV | 8.7Comment: Testing | fl | EXTERNAL | | | | performed at [facility];[address] | | LAB | | | | [address];[place] | | | | | | [address] | | | | + + + + + + | Differentia | MANUALComment: Testing | | EXTERNAL | | | l Type | performed at [facility];[address] | | LAB | | | | [address];[place] | | | | | | [address] | | | | + + + + + + | Segmented | 70Comment: Testing | % | EXTERNAL | | | Neutrophils | performed at [facility];[address] | | LAB | | | Manual | [address];[place] | | | | | | [address] | | | | + + + + + + | % Bands | 19Comment: Testing | % | EXTERNAL | | | | performed at [facility];[address] | | LAB | | | | [address];[place] | | | | | | [address] | | | | + + + + + + | Lymphocytes | 4Comment: Testing | % | EXTERNAL | | | Manual | performed at [facility];[address] | | LAB | | | | [address];[place] | | | | | | [address] | | | | + + + + + + | Monocytes | 7Comment: Testing | % | EXTERNAL | | | Manual | performed at [facility];[address] | | LAB | | | | [address];[place] | | | | | | [address] | | | | + + + + + + | Absolute | 8.3 (H)Comment: Testing | 1.9 - 7.4 K/uL | EXTERNAL | | | Neutrophils | performed at [facility];[address] | | LAB | | | | [address];[place] | | | | | | [address] | | | | + + + + + + | Bands | 2.3 (H)Comment: Testing | 0 - 0.2 K/uL | EXTERNAL | | | Manual | performed at [facility];[address] | | LAB | | | | [address];[place] | | | | | | [address] | | | | + + + + + + | Absolute | 0.5 (L)Comment: Testing | 1.0 - 3.9 K/uL | EXTERNAL | | | Lymphocytes | performed at [facility];[address] | | LAB | | | | [address];[place] | | | | | | [address] | | | | + + + + + + | Absolute | 0.8Comment: Testing | 0 - 0.8 K/uL | EXTERNAL | | | Monocytes | performed at [facility];[address] | | LAB | | | | [address];[place] | | | | | | [address] | | | | + + + + + + | RBC | RBC AND PLT MORPHOLOGY | | EXTERNAL | | | Morphology | APPEAR NORMALComment: | | LAB | | | | Testing performed at | | | | | | [facility];[address];[place] [address] | | | | + + + + + + + + | Specimen | + + | Blood specimen | | (specimen) | + + + +---------+ + + | Performing | Address | City/State/Zipcode | Phone Number | | Organization | | | | + +---------+ + + | EXTERNAL LAB | | | | + +---------+ + + Phosphorus (03/16/2014 4:40 AM PDT) + + + + + + | Component | Value | Ref Range | Performed | Pathologist | | | | | At | Signature | + + + + + + | PHOSPHORUS | 3.0Comment: Testing | 2.3 - 4.8 mg/dL | EXTERNAL | | | | performed at [facility], [address] | | LAB | | | | [address], | | | | | | [place] [address] | | | | + + + + + + + + | Specimen | + + | Blood specimen | | (specimen) | + + + +---------+ + + | Performing | Address | City/State/Zipcode | Phone Number | | Organization | | | | + +---------+ + + | EXTERNAL LAB | | | | + +---------+ + + Magnesium (03/16/2014 4:40 AM PDT) + + + + + + | Component | Value | Ref Range | Performed | Pathologist | | | | | At | Signature | + + + + + + | Magnesium | 1.8Comment: Testing | 1.7 - 2.4 mg/dL | EXTERNAL | | | | performed at [facility], [address] | | LAB | | | | [address], | | | | | | [place] [address] | | | | + + + [...] + +---------+ + + Basic Metabolic Panel (03/16/2014 4:40 AM PDT) + + + + + + | Component | Value | Ref Range | Performed | Pathologist | | | | | At | Signature | + + + + + + | Na | 129 (L)Comment: Testing | 135 - 143 | EXTERNAL | | | | performed at [facility], [address] | mmol/L | LAB | | | | [address], | | | | | | [place] [address] | | | | + + + + + + | K | 4.0Comment: Testing | 3.5 - 4.9 | EXTERNAL | | | | performed at [facility], [address] | mmol/L | LAB | | | | [address], | | | | | | [place] [address] | | | | + + + + + + | Cl | 93 (L)Comment: Testing | 99 - 109 mmol/L | EXTERNAL | | | | performed at [facility], [address] | | LAB | | | | [address], | | | | | | [place] [address] | | | | + + + + + + | CO2 | 26Comment: Testing | 23 - 32 mmol/L | EXTERNAL | | | | performed at [facility], [address] | | LAB | | | | [address], | | | | | | [place] [address] | | | | + + + + + + | Anion Gap | 14Comment: Testing | 5 - 20 mmol/L | EXTERNAL | | | | performed at [facility], [address] | | LAB | | | | [address], | | | | | | [place] [address] | | | | + + + + + + | Glucose, | 131 (H)Comment: Testing | 65 - 99 mg/dL | EXTERNAL | | | Fasting | performed at [facility], [address] | | LAB | | | [address], | | | | | | [place] [address] | | | | + + + + + + | BUN | 33 (H)Comment: Testing | 8 - 25 mg/dL | EXTERNAL | | | | performed at [facility], [address] | | LAB | | | | [address], | | | | | | [place] [address] | | | | + + + + + + | Creatinine | 5.86 (H)Comment: Testing | 0.70 - 1.30 | EXTERNAL | | | | performed at [facility], [address] | mg/dL | LAB | | | | [address], | | | | | | [place] [address] | | | | + + + + + + | BUN/Creatin | 6Comment: Testing | | EXTERNAL | | | ine Ratio | performed at [facility], [address] | | LAB | | | | [address], | | | | | | [place] [address] | | | | + + + + + + | Calcium | 7.8 (L)Comment: Testing | 8.5 - 10.2 | EXTERNAL | | | | performed at [facility], [address] | mg/dL | LAB | | | | [facility], | | | | | | [place] [address] | | | | + + + + + + | Estimated | 11 (L)Comment: GFR <60: | mL/min/1.73m2 | EXTERNAL [...] | | | | | | at [facility], [address] | | | | | | [address], | | | | | | [place] [address] | | | | + + + + + + + + | Specimen | + + | Blood specimen | | (specimen) | + + + +---------+ + + | Performing | Address | City/State/Zipcode | Phone Number | | Organization | | | | + +---------+ + + | EXTERNAL LAB | | | | + +---------+ + + Influenza A and B CHELO Alva (03/15/2014 8:57 PM PDT) + + | Specimen | + + | | + + + + + | Narrative | Performed At | + + + | Specimen Description NASOPHARYNGEAL RESULT | EXTERNAL LAB | | Negative for Influenzae Type A | | | and Type B antigen by ICA | | | Testing performed at [facility];[address];[place] [address] | | + + + + +---------+ + + | Performing | Address | City/State/Zipcode | Phone Number | | Organization | | | | + +---------+ + + | EXTERNAL LAB | | | | + +---------+ + + ECG 12 lead (03/15/2014 7:52 PM PDT) + + + + + [...] of | | | | | | 09-NOV-2013 21:39,No | | | | | | significant change was | | | | | | foundThis ECG contains | | | | | | Unconfirmed | | | | | | Interpretation | | | | | | Statements. See ED | | | | | | Record for Physician | | | | | | Interpretation. | | | | | | Confirmed by MUSE READ | | | | | | ONLY, -COMPUTER ([id number]), | | | | | | content editor DOMINIC ARCE | | | | | | (4) on 03/16/2014 6:41:26 | | | | | | AM | | | | + + + + + + + + | Specimen | + + | | + + + + + | Narrative | Performed At | + + + | Historically converted procedure from [facility] environment | EXTERNAL LAB | + + + + +---------+ + + | Performing | Address | City/State/Zipcode | Phone Number | | Organization | | | | + +---------+ + + | EXTERNAL LAB | | | | + +---------+ + + documented in this encounter Visit Diagnoses + + | Diagnosis | + + | Sepsis (HCC) | + + | Pneumonia Pneumonia, organism unspecified | + + | ESRD on hemodialysis (HCC) End stage renal disease | + + | 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
--- OUTSIDE RECORDS SUMMARY | ~2020-03-11 | XMS | Encounter Summary ---
Demographics + + + | Address | [address] | | | [place] [address] | + + + | Home Phone [...] Team Providers + +------+ + | Care Senior Enterprise Architect Name | Role | Phone | + +------+ + PCP | Unavailable | + +------+ + Encounter Details +--------+ + + + + | Date | Type | Department | Care Team | Description | +--------+ + + + + | 09/07/ | Hospital | [facility] | Artis Dean MD | ESRD (end stage | | 2017 - | Encounter | [facility] | [address] [place] | renal disease) on | | | | CARE FLOOR [address] | [address] [place], [place] | dialysis ([facility]); S/P | | 09/15/ | | [address] | [address] | pericardiocentesis; | | 2017 | | [place], [place] | | Hyperkalemia; | | | | [address] | | End-stage renal | | | | [phone] | | disease (ESRD) | | | | | | ([facility]); Arteriovenous | | | | | | fistula occlusion, | | | | | | initial encounter | | | | | | ([facility]); Anemia, | | | | | | unspecified type; | | | | | | Wheezes; | | | | | | Hyponatremia; | | | | | | Hematuria; | | | | | | Pericardial effusion | | | | | | with cardiac | | | | | | tamponade | +--------+ + + + + Social [...] + + + | Blood Pressure | 108/60 | 09/15/2016 3:49 PM | | | | | PDT | | + + + + + | Pulse | 65 | 09/15/2016 3:49 PM | | | | | PDT | | + + + + + | Temperature | 36.7 C (98 F) | 09/15/2016 3:49 PM | | | | | PDT | | + + + + + | Respiratory Rate | 18 | 09/15/2016 3:49 PM | | | | | PDT | | + + + + + | Oxygen Saturation | - | - | | + + + + + | Inhaled Oxygen | - | - | | | Concentration | | | | + + + + + | Weight | 88 kg (194 lb 0.2 | 09/15/2016 3:49 PM | | | | oz) | PDT | | + + + + + | Height | 170.2 cm (5' 7") | 09/15/2016 3:49 PM | | | | | PDT | | + + + + + | Body Mass Index | 30.39 | 09/15/2016 3:49 PM | | | | | PDT | | + + + + + documented in this encounter Discharge Summaries Douglas Barrow - 09/15/2016 3:04 PM PDT Discharge Summaries by DAMIÁN KuR1 at 09/15/16 3829 Author: ESPERANZA Ku Service: Hospitalist Author Type: Resident-Y1 Filed: 09/15/16 8484 Date of Service: 09/15/161503 Status: Attested Pearl Glue Drier: ESPERANZA Ku (Resident-Y1) Cosigner: Simone Roblero MD at 09/17/16 1 338 Attestation signed by Simone Roblero MD at 09/17/16 0945 I have seen and examined the patient and agree with residents note [facility]: Hospitalist Discharge Summary Date of Admission: 09/07/2016 Date of Discharge: Discharge Provider: Douglas Barrow MD-R1/Dr. Roblero Treatment Team: Consulting Physician: Cosmo Soria MD Consulting Physician: Howie Meyer PA-C Admitting Provider: Artis Dean MD Discharge Diagnoses: Principal Problem: Pericardial effusion with cardiac tamponade Active Problems: Secondary renal hyperparathyroidism (HCC) 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) ESRD (end stage renal disease) on dialysis (HCC) Anemia of chronic kidney failure Hyponatremia Chronic systolic heart failure (HCC) S/P pericardiocentesis Resolved Problems: Acute hyperkalemia Dialysis AV fistula malfunction ([facility]) BRIEF HISTORY OF PRESENTATION and HOSPITAL COURSE: This is a 51 y/o male with a h/o ESRD requiring HD, DM II, and hypothyroidism who pres ented to [facility] with hyperkalemia 2/2 missing dialysis appointments as his AVF was not functio jennifer. He underwent revascularization with stent placement by IR on 09/11. This was complicat ed by pericardial perforation requiring a pericardial drain placement by cardiology. The paulie in remained in place for two days and then was removed. F/u echo did not demonstrate any sig nificant re-accumulation of fluid. The patient had a tunneled femoral catheter placed on adm ission for dialysis. His fistula was reaccessed with success on 09/14. The femoral catheter was removed and the patient was D/C'd to home. DISCHARGE EXAM Vital Signs: BP 108/60 mmHg | Pulse 65 | Temp(Src) 98 F (36.7 C) (Oral) | Resp 18 | Ht 1.702 m (5' 7 ") | Wt 88 kg (194 lb 0.1 oz) | BMI 30.38 kg/m2 | SpO2 100% Physical Exam Physical Exam Gen: Patient was awake and very pleasant, as he has always been, he is friendly and an incr edible patient to have HEENT: He had an IV placed on his forehead, he has poor dentition, but was always smiling, oral mucosa was moist Neck: supple, no tracheal deviation CV: RRR, no R/G/M, bandage over pericardial drain insertion site CDI Pulm: bilateral and symmetric chest expansion, lungs had very mild wheezes throughout, no c rackles noted Abd: soft, NTTP Ext: Fistula in RUE demonstrated very mild discharge serosanguinous/bloody in color, Neuro: CN II-XI intact Psych: Patient is very pleasant, demonstrates a logical thought process, very happy DATA Recent Results (from the past 24 hour(s)) POCT glucose Collection Time: 09/14/16 4:22 PM Result Value Ref Range GLUCOSE,POC SCREEN 124 (H) 65 - 99 mg/dL POCT glucose Collection Time: 09/14/16 9:09 PM Result Value Ref Range GLUCOSE,POC SCREEN 222 (H) 65 - 99 mg/dL Magnesium Collection Time: 09/15/16 5:26 AM Result Value Ref Range MAGNESIUM 2.7 (H) 1.7 - 2.4 mg/dL Phosphorus Collection Time: 09/15/16 5:26 AM Result Value Ref Range PHOSPHORUS 3.0 2.3 - 4.8 mg/dL CBC W/Auto Diff (Reflex to Manual) Collection Time: 09/15/16 5:26 AM Result Value Ref Range WBC 10.76 3.80 - 11.00 K/uL RBC 2.86 (L) 4.20 - 5.70 M/uL HGB 8.7 (L) 13.2 - 17.0 g/dL HCT 25.9 (L) 39.0 - 50.0 % MCV 90.4 80.0 - 100.0 fl MCH 30.5 27.0 - 34.0 pg MCHC 33.7 32.0 - 35.5 g/dL RDW SD 54.3 (H) 37 - 53 fl PLT 279 150 - 400 K/uL MPV 7.1 fl DIFF TYPE AUTOMATED NEUTROPHILS 73.44 % LYMPHOCYTES 8.76 % MONOCYTES 13.23 % EOSINOPHILS 3.62 % BASOPHILS 0.95 % NEUTROPHILS ABS 7.90 (H) 1.90 - 7.40 K/uL LYMPHOCYTES ABS 0.94 (L) 1.00 - 3.90 K/uL MONOCYTES ABS 1.42 (H) 0.00 - 0.80 K/uL EOSINOPHILS ABS 0.39 0.00 - 0.50 K/uL BASOPHILS ABS 0.10 0.00 - 0.10 K/uL Albumin Collection Time: 09/15/16 5:26 AM Result Value Ref Range Albumin 2.6 (L) 3.6 - 5.0 g/dL Basic metabolic panel Collection Time: 09/15/16 5:26 AM Result Value Ref Range SODIUM 134 (L) 135 - 145 mmol/L POTASSIUM 4.6 3.5 - 4.9 mmol/L CHLORIDE 97 (L) 99 - 109 mmol/L CO2 28 23 - 32 mmol/L ANION GAP AGAP 14 5 - 20 mmol/L GLUCOSE 126 (H) 65 - 99 mg/dL BUN 38 (H) 8 - 25 mg/dL CREATININE 6.0 (H) 0.70 - 1.30 mg/dL BUN/CREAT 6 CALCIUM 8.4 (L) 8.5 - 10.5 mg/dL EGFR 11 (L) >60 mL/min/1.73m2 POCT glucose Collection Time: 09/15/16 5:35 AM Result Value Ref Range GLUCOSE,POC SCREEN 137 (H) 65 - 99 mg/dL POCT glucose Collection Time: 09/15/16 11:26 AM Result Value Ref Range GLUCOSE,POC SCREEN 152 (H) 65 - 99 mg/dL Radiology Ct Chest With Iv Contrast 09/10/2016 1. Occlusion of the RIGHT subclavian vein just proximal to the RIGHT 1st rib, probably due to thrombosis. 2. Severe narrowing of the LEFT subclavian vein as it passes ov er the LEFT 1st rib. 3. Apparent fibrotic stenosis of the distal aspect of the superior seth a cava as it enters the RIGHT atrium. 4. Moderate RIGHT axillary lymphadenopathy, probably reactive. 5. Diffuse subcutaneous edema throughout the RIGHT anterior chest wall and the la teral chest wall. 6. Moderately large subcutaneous collateral venous blood flow in the uppe r anterior RIGHT chest, suggesting chronic stenosis or occlusion of the RIGHT subclavian vei n. 7. Mild atelectasis/focal pneumonia in the RIGHT lung base. 8. Mild interstitial pulmon alen edema versus chronic bronchitis. Electronically signed by Carlos Eduardo Bowman MD on 2016 12:[address] Chest With Iv Contrast 09/09/2016 1. Suboptimal exam due to IV infiltration at the injection site. Please see abo ve discussion under technique. 2. Superior vena cava is not expanded. Consider repeating re peating the exam when a new IV has been placed. Alternatively, right upper extremity ultraso und could be performed to evaluate for any abnormal waveforms, which may indicate central oc clusion. 3. Right axillary and mediastinal adenopathy. Differential considerations include reactive versus, and preoperative versus metastatic disease. 4. Nonspecific groundglass opa cities within the left upper lobe, may represent acute inflammation or infection. Electronic ally signed by Kenneth Garrett on 09/09/2016 2:21 PM Ir Venogram Upper Extremity Right 09/11/2016 1. Successful recanalization with angioplasty and provisional stent placement of subacute axillary and chronic right brachiocephalic, subclavian venous occlusions as descri bed. May proceed with dialysis via brachiobasilic fistula. 2. Complication of hemopericardiu m treated with pericardial drain. The appreciated assistance of Dr. Posada. Electronically s igned by Jimenez Garnica MD on 09/11/2016 8:53 PM Echo Cardiac Adult Complete 09/11/2016 1. Essentially normal study. Echo Cardiac Adult Limited 09/14/2016 1. There is a trivial pericardial effusion present. 2. Pleural effusion present. Echo Cardiac Adult Limited 09/13/2016 1. Overall left ventricular systolic function is normal with, an EF between 55 - 60 %. 2. There is no pericardial effusion. PLAN The patient will discharge to home to resume his regular MWF dialysis schedule. He is allow ed to use his fistula. He will need to f/u with cardiology in 1-2 weeks for reevaluation and assessment for recurrence of his pericardial effusion. Disposition: Home Condition: Good Code Status: Full Code No discharge procedures on file. Follow up: [place] [address] [place] [address] Go on 09/18/2016 Hospital Follow Up at 2:15pm Guided Patient Services Guided Patient Services [employer] Sales Engagement Executive- HARDIK Ayala [phone] Mon-Sat 7:30 AM 4:00 PM Call for any questions or concerns after your discharge home, or for help making follow up appointments. Beny Posada MD [facility] [place] [id number] In 2 weeks for hospital follow up Medication List CHANGE how you take these medications albuterol 108 (90 BASE) MCG/ACT inhaler QTY: 1 Inhaler Refills: 1 Commonly known as: PROVENTIL HFA Inhale 2 puffs into the lungs every 4 (four) hours as needed for Wheezing. What changed: additional instructions CONTINUE taking these medications acetaminophen 325 MG tablet Refills: 0 Commonly known as: TYLENOL allopurinol 100 MG tablet Refills: 0 Commonly known as: ZYLOPRIM amLODIPine 10 MG tablet Refills: 0 Commonly known as: NORVASC aspirin 81 MG tablet Refills: 0 b complex-vitamin c-folic acid 0.8 MG Tabs tablet Refills: 0 budesonide-formoterol 160-4.5 MCG/ACT inhaler QTY: 2 each Refills: 0 Commonly known as: SYMBICORT Inhale 2 puffs into the lungs 2 (two) times daily. carvedilol 3.125 MG tablet Refills: 0 Commonly known as: COREG Cholecalciferol 2000 UNITS Tabs Refills: 0 fluticasone-salmeterol 250-50 MCG/DOSE QTY: 60 each Refills: 0 Commonly known as: ADVAIR DISKUS Inhale 1 puff into the lungs 2 (two) times daily. furosemide 20 MG tablet Refills: 0 Commonly known as: LASIX levothyroxine 75 MCG tablet Refills: 0 Commonly known as: SYNTHROID montelukast 10 MG tablet QTY: 30 tablet Refills: 0 Commonly known as: SINGULAIR Take 1 tablet by mouth nightly. RENVELA 800 MG tablet QTY: 300 tablet Refills: 1 Generic drug: sevelamer take 3 tablets by mouth three times a day WITH MEALS AND 1 TABLET WITH SNACKS sodium bicarbonate 650 MG tablet Refills: 0 Discharge took 20 minutes, to include final examination, discussion of admission, and prepa ration of prescriptions, instructions for on-going care, follow-up and documentation of disc harge summary. Douglas Barrow MD-R1 09/15/2016 3:04 PM documented in this encounter Medications at Time of [...] Progress Notes Conversion Transaction, Provider Unknown - 09/15/2016 3:16 PM PDTFormatting of this note m ight be different from the original. Nurse Progress Note by Ophelia See RN at 09/15/16 1516 Author: Ophelia See RN Service: (none) Author Type: Registered Nurse Filed: 09/15/16 1531 Date of Service: 09/15/16 1516 Status: Signed Pearl Glue Drier: Ophelia See RN (Registered Nurse) Patient leaving via private vehicle for home self care. All belongings with patient and spo use. Script given for oxycodone. Patient states understanding of all follow up appointments. Sean, Juana Smallwood MD - 09/15/2016 11:10 AM PDTFormatting of this note might be different from th e original. Progress Notes by Juana Christianson MD at 09/15/16 1110 Author: Juana Christianson MD Service: Nephrology Author Type: Physician Filed: 09/21/16 8791 Date of Service: 09/15/161109 Status: Signed Pearl Glue Drier: Juana Christianson MD (Physician) [facility]: Nephrology Progress Note Hospital Problem List: Principal Problem: Pericardial effusion with cardiac tamponade Active Problems: Secondary renal hyperparathyroidism (HCC) 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) ESRD (end stage renal disease) on dialysis (HCC) Anemia of chronic kidney failure Hyponatremia Chronic systolic heart failure ([facility]) S/P pericardiocentesis The patient says that he feels 'ok' today. he denies any cp, sob, abd pain, n/v. The following portions of the patient's history were reviewed and updated as appropriate: l aboratory data, radiologic studies, allergies, current medications, and problem list. allopurinol 100 mg Oral Daily amLODIPine 10 mg Oral Daily aspirin 81 mg Oral Daily with breakfast budesonide-formoterol 2 puff Inhalation 2 times daily carvedilol 3.125 mg Oral BID WC cholecalciferol 2,000 Units Oral Daily guaiFENesin 600 mg Oral BID insulin lispro (human) 0-10 Units Subcutaneous TID AC insulin lispro (human) 0-5 Units Subcutaneous Nightly ipratropium-albuterol 3 mL Nebulization Q6H levothyroxine 75 mcg Oral QAM AC lidocaine 1 patch Transdermal Every Other Day lidocaine 10 mL Intradermal Once montelukast 10 mg Oral Nightly polyethylene glycol 17 g Oral Daily sevelamer 2,400 mg Oral TID WC sodium bicarbonate 1,300 mg Oral BID sodium chloride 10 mL Intravenous Q8H sodium chloride 10 mL Intravenous 2 times per day sodium citrate anticoagulant 4 % 6 mL Intracatheter Once per day on Sat torsemide 50 mg Oral Daily vitamin B cxbydto-B-xtxtg acid 1 tablet Oral Daily dextrose P.E. BP 127/68 mmHg | Pulse 76 | Temp(Src) 98.3 F (36.8 C) (Oral) | Resp 18 | Ht 1.702 m (5' 7") | Wt 88 kg (194 lb 0.1 oz) | BMI 30.38 kg/m2 | SpO2 99% General appearance: Pleasant, not in acute distress. Lungs: Good A/E to auscultation bilaterally and resonant. There are no wheezes. Heart: Regular rate and rhythm without any rub, gallop. no murmur. Abdominal exam: Soft and nontender with normal bowel sounds. Extremities: Warm to touch with trace leg edema. There is no cyanosis or clubbing. Neurological: Awake, alert, and oriented to time, place, and person. Normal gross motor po wer. There is no asterixis. Lab Results Component Value Date BUN 38* 09/15/2016 CREATININE 6.0* 09/15/2016 EGFR 11* 09/15/2016 NA 134* 09/15/2016 K 4.6 09/15/2016 CL 97* 09/15/2016 CO2 28 09/15/2016 CA 8.4* 09/15/2016 PHOS 3.0 09/15/2016 MG 2.7* 09/15/2016 ALB 2.6* 09/15/2016 HGB 8.7* 09/15/2016 I/O last 3 completed shifts: In: 3210 [P.O.:1010; Other:2200] Out: 3200 [Other:3200] Assessment: Mr. Potter is a 51 y.o. male patient with ESRD, HD; non-compliance with HD. SVC stenosis s/p angioplasty, hemopericardium needing pericardial cath drainage. Dialyzed yesterday with no issues with his AV fistula Recommendations: No acute BEHAVIORAL ASSISTANT indication Remove CVC Protein suppl stressed I discussed with the primary team the case at the time of this encounter. JUANA CHRISTIANSON MD 09/15/2016 onversion Transa ction, Provider Unknown - 09/15/2016 4:18 AM PDT Nurse Progress Note by Yessica Bell RN at 09/15/16417 Author: Yessica Bell RN Service: (none) Author Type: Registered Nurse Filed: 09/15/16 0421 Date of Service: 09/15/16417 Status: Signed Pearl Glue Drier: Yessica Bell RN (Registered Nurse) Patient came to visit patient this shift and very hyper. Patient and not able to sit still and relax in room. Per patient gave him a good bed bath. After the best bath, Right groin dressing to tunneled cath needed to be changed twice. Patient IV to forehead re brennan in place, no blood return noted. Patient having right shoulder pain this evening, warm blankets and oxycodone relieved pain. Will continue to monitor. [place] 24 hour chart check complete onver quique Transaction, Provider Unknown - 09/14/2016 6:53 PM PDT Nurse Progress Note by Ophelia See RN at 09/14/161852 Author: Ophelia See RN Service: (none) Author Type: Registered Nurse Filed: 09/14/161855 Date of Service: 09/14/161852 Status: Signed Pearl Glue Drier: Ophelia See RN (Registered Nurse) Patient has been doing well this afternoon. He tolerated dialysis in his fistula. He is hav ing some constipation issues. I gave patient Milk of magnesium and miralax. He still has not had any results. He was just medicated for pain. He continues with line in his right groin. I anticipate we will get orders to remove now that dialysis is using fistula. Patient is ve ry pleasant and cooperative with care. He is eating 100% of his meals. onver quique Transaction, Provider Unknown - 09/14/2016 5:01 PM PDT Progress Notes by Marge Lewis RD, JAYA at 09/14/161700 Author: Marge Lewis RD, CD Service: (none) Author Type: Registered Dietitian Filed: 09/14/161701 Date of Service: 09/14/161700 Status: Signed Pearl Glue Drier: Marge Lewis RD, JAYA (Registered Dietitian) 09/14/161649 Subjective Timepoint Admit Pt c/o Pt triggered for stay secondary to LOS. Admitted secondary to swollen fistula, no H D for five days. New fistula placed, pt sleeping and undergoing HD at time of visit. Did n ot awaken patient. Reported by RN Diet Experience Previous Diet / Nutrition Education / Counseling Pt receives HD in [facility], followed by belen chicas dietitian there. Food Intake Amount of Food Per RN, pt eating and drinking well. Charting indicates pt eating 90-100% o f meals. Micronutrient Intake Vitamin Intake D;Multivitamin Mineral / Element Intake Multi-mineral Anthropometrics Weight change Pt's BMI (28.6) indicates overweight, pt 123% of midpoint of ideal body wt ra nge. Long-term, wt loss to within ideal body wt range ideal. Biochemical data, medical tests, and procedures reviewed Biochemical data, medical tests, and procedures reviewed Blood sugars elevated (100's-200's ), insulin being provided. BUN and Cr elevated. K+ and phos WNL, Na+ low at 129. Recommendations Recommended energy needs Renal, cardiac, diabetic diet as ordered. Will continue to follow , further nutrition intervention as indicated. Nutritional Risk Nutritional risk Low MARGE LEWIS RD, CD onver quique Transaction, Provider Unknown - 09/14/2016 4:59 PM PDT Case Management by Lola Farfan RN at 09/14/161658 Author: Lola Farfan RN Service: (none) Author Type: Registered Nurse Filed: 09/14/161699 Date of Service: 09/14/161658 Status: Signed Pearl Glue Drier: Lola Farfan RN (Registered Nurse) Discharge Planning: CM attended morning rounds with nursing staff, pt to d/c home with spou se, does not qualify for , pt not home bound eghan, Juana Smallwood MD - 09/14/2016 8:48 AM PDTFormatting of this note might be different from e original. Progress Notes by Juana Christianson MD at 09/14/16847 Author: Juana Christianson MD Service: Nephrology Author Type: Physician Filed: 09/14/162050 Date of Service: 09/14/16847 Status: Signed Pearl Glue Drier: Juana Christianson MD (Physician) [facility]: Nephrology Progress Note Hospital Problem List: Principal Problem: Pericardial effusion with cardiac tamponade Active Problems: Secondary renal hyperparathyroidism (HCC) 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) ESRD (end stage renal disease) on dialysis (HCC) Anemia of chronic kidney failure Hyponatremia Chronic systolic heart failure (HCC) S/P pericardiocentesis The patient says that he feels 'fine' today. he denies any cp, sob, abd pain, n/v. The following portions of the patient's history were reviewed and updated as appropriate: l aboratory data, radiologic studies, allergies, current medications, and problem list. As in History of Present Illness & Assessment below. All the pertinent systems were reviewe d and were otherwise negative. allopurinol 100 mg Oral Daily amLODIPine 10 mg Oral Daily aspirin 81 mg Oral Daily with breakfast budesonide-formoterol 2 puff Inhalation 2 times daily carvedilol 3.125 mg Oral BID WC cholecalciferol 2,000 Units Oral Daily guaiFENesin 600 mg Oral BID insulin lispro (human) 0-10 Units Subcutaneous TID AC insulin lispro (human) 0-5 Units Subcutaneous Nightly ipratropium-albuterol 3 mL Nebulization Q6H levothyroxine 75 mcg Oral QAM AC [START ON 09/15/2016] lidocaine 1 patch Transdermal Every Other Day lidocaine 10 mL Intradermal Once montelukast 10 mg Oral Nightly polyethylene glycol 17 g Oral Daily sevelamer 2,400 mg Oral TID WC sodium bicarbonate 1,300 mg Oral BID sodium chloride 10 mL Intravenous Q8H sodium chloride 10 mL Intravenous 2 times per day sodium citrate anticoagulant 4 % 6 mL Intracatheter Once per day on Sat torsemide 50 mg Oral Daily vitamin B ywjxhmi-B-wmimm acid 1 tablet Oral Daily dextrose P.E. BP 104/59 mmHg | Pulse 78 | Temp(Src) 98.7 F (37.1 C) (Oral) | Resp 20 | Ht 1.702 m (5' 7") | Wt 88 kg (194 lb 0.1 oz) | BMI 30.38 kg/m2 | SpO2 93% General appearance: Pleasant, not in acute distress. Neck: Supple without tracheal deviation or jugular venous distension. Engorged neck. Head and ENT: Head is atraumatic. The oropharynx is without erythema or thrush. Engorged f rohit. Eyes: Anicteric. The extraocular muscle movements are normal. Lungs: Good A/E to auscultation bilaterally. There are no wheezes. Heart: Regular rate and rhythm without any rub, gallop. no murmur. No pericardial cath Abdominal exam: Soft and nontender with normal bowel sounds. Musculoskeletal: No costovertebral angle tenderness bilaterally. Extremities: Warm to touch with trace leg edema. There is no cyanosis. Skin: There are no rashes, petechiae, or ecchymosis. Changes of stasis dermatitis in legs Neurological: Awake, alert, and oriented to time, place, and person. Normal gross motor po wer. There is no asterixis. Psychiatric: The patient s behavior is normal. Judgment and thought content are normal. Access: right arm AV fistula with good thrill. Lab Results Component Value Date BUN 58* 09/14/2016 CREATININE 9.4* 09/14/2016 EGFR 6* 09/14/2016 NA 129* 09/14/2016 K 4.6 09/14/2016 CL 92* 09/14/2016 CO2 26 09/14/2016 CA 8.3* 09/14/2016 PHOS 4.1 09/14/2016 MG 2.6* 09/14/2016 ALB 2.7* 09/14/2016 HGB 8.6* 09/14/2016 I/O last 3 completed shifts: In: 2625 [P.O.:2625] Out: 90 [Drains:90] Assessment: Mr. Potter is a 51 y.o. male patient with ESRD, HD; non-compliance with HD. SVC stenosis s/p angioplasty, hemopericardium needing pericardial cath drainage. RENAL FUNCTION: No RKF BLOOD PRESSURE: ok ELECTROLYTES: abnormal Sodium: Mild hypoNa Potassium: ok Calcium: Corrected Ca is ok Magnesium: Minimally up Phosphorus: ok Acid/Base: ok ALBUMIN: Very low ANEMIA: Of ESRD, moderate VOLUME STATUS: Relative euvolemia Recommendations: 1. He needs BEHAVIORAL ASSISTANT today 2. No IVF need 3. Advise fluid restriction of 1.2 L per 24 hrs 4. Strict I/O & daily weights. 5. Prot suppl stressed 6. Plan ANAYA IV with HD 7. Dose all of his meds to his current intermittent HD 8. Continue to avoid all kinds of nephrotoxins. 9. Target euvolumia with a MAP>75 mmHg as possible. 10. Given his tendency for anasarca: Encourage adequate intake & close dietitian F/U. Encou rage ambulation safely. Encourage the adequate use of an incentive spirometer. F/U: Also seen and examined during dialysis. Tolerating it well. Access: no issues. UF: as tolerated. Next dialysis: MWF. I discussed with the nursing team the case at the time of this encounter. I spent 35 total minutes today in interviewing & examining the patient, reviewing & updatin g the patient's chart, formulating a plan, in addition to patient education and discussions with the primary/consulting team. JUANA CHRISTIANSON MD 09/14/2016 Douglas Bess - 09/14/2016 6:27 AM PDT Progress Notes by Douglas Barrow MD-R1 at 09/14/16626 Author: Douglas Barrow MD-R1 Service: Hospitalist Author Type: Resident-Y1 Filed: 09/14/16 1540 Date of Service: 09/14/16626 Status: Attested Pearl Glue Drier: ESPERANZA Ku (Resident-Y1) Cosigner: Simone Roblero MD at 09/15/16 1 424 Attestation signed by Simone Roblero MD at 09/15/16 9444 I have seen and examined the patient and agree with residents of note. Pericardial drain is out. HD was performed using fistula. No complication PROGRESS NOTE 09/14/2016 for Carol Jonny Potter on the hospitalist service. 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 There was concern that he had central occlusion of the SVC, which did not turning lathe tender to be the case. Patient underwen t recanalization of the right subclavian successfully on 09/11 and the right subclavian is n ow patent with two stents placed. His pain has improved. He now has an IV in his forehead. - Fistula now available for use - Lidocaine patch every other day - Transfer to oral narcotics, will add miralax Hemopericardium This was an intraoperative complication of the above procedure. Please see the op note. Dr bridges has been removed. Plan for echocardiogram this AM. ESRD Patient has ESRD likely 2/2 to DMII. He is under the care of nephrology and receives HD MWF . He is now back on his regular dialysis schedule here in the hospital. - Continue HD MWF - Electrolytes managed by nephrology - Appreciate Nephrology recommendations DMII Sugar at night is persistently elevated, will consider adding AM basal Hypothyroidism Continue levothyroxine Asthma Continue monteleukast, cont symbicort, cont duoneb PRN add mucinex. His lungs continue to s ound improved Problem list: Principal Problem: Acute hyperkalemia Active Problems: Secondary renal hyperparathyroidism (HCC) 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) ESRD (end stage renal disease) on dialysis (HCC) Anemia of chronic kidney failure Dialysis AV fistula malfunction (HCC) Hyponatremia Chronic systolic heart failure (HCC) Pericardial effusion with cardiac tamponade S/P pericardiocentesis Length of stay: 7 days DVT prophylaxis: Heparin Code status: Full Disposition: Inpatient PATIENT SUMMARY This is a 51 y/o male with a h/o ESRD requiring HD, DM II, and hypothyroidism who presented to [facility] with hyperkalemia 2/2 missing dialysis appointments as his AVF was not functioning. SUBJECTIVE IV infiltrated, new one placed in forehead. OBJECTIVE Temp: [97.6 F (36.4 C)-98.8 F (37.1 C)] 98.6 F (37 C) (09/14 329) BP: (99-122)/(55-76) 108/63 mmHg (09/14 329) Heart Rate: [75-91] 77 (09/14 329) Resp: [18] 18 (09/14 329) SpO2: [93 %-99 %] 96 % (09/14 329) Weight: [88 kg (194 lb 0.1 oz)] 88 kg (194 lb 0.1 oz) (09/14 329) Physical Exam Constitutional: He is oriented to person, place, and time. Patient standing up and very happy, he had an IV in his forehead and stated "The cruz got it one try!." The patient is wonderfully pleasant to be around HENT: Head: Normocephalic and atraumatic. Mouth/Throat: No oropharyngeal exudate. Very poor dentition, most noted in his front teeth, PIV present on left forehead Eyes: Conjunctivae are normal. No scleral icterus. Neck: No tracheal deviation present. Cardiovascular: Normal rate, regular rhythm and normal heart sounds. Femoral CVC was present and the dressing was CDI, pericardial drain has been removed Pulmonary/Chest: Effort normal. No stridor. No respiratory distress. Decreased wheezing present Abdomina/Gl: Soft. He exhibits no distension. Musculoskeletal: BLE non edematous, no palpable cords Neurological: He is alert and oriented to person, place, and time. Psychiatric: He has a normal mood and affect. Nursing note and vitals reviewed. Recent Results (from the past 24 hour(s)) Renal function panel Collection Time: 09/13/16 7:09 AM Result Value Ref Range SODIUM 131 (L) 135 - 145 mmol/L POTASSIUM 4.1 3.5 - 4.9 mmol/L CHLORIDE 93 (L) 99 - 109 mmol/L CO2 25 23 - 32 mmol/L ANION GAP AGAP 17 5 - 20 mmol/L GLUCOSE 173 (H) 65 - 99 mg/dL BUN 40 (H) 8 - 25 mg/dL CREATININE 7.3 (H) 0.70 - 1.30 mg/dL CALCIUM 7.6 (L) 8.5 - 10.5 mg/dL Albumin 2.8 (L) 3.6 - 5.0 g/dL PHOSPHORUS 3.6 2.3 - 4.8 mg/dL EGFR 8 (L) >60 mL/min/1.73m2 Magnesium Collection Time: 09/13/16 7:09 AM Result Value Ref Range MAGNESIUM 2.2 1.7 - 2.4 mg/dL Phosphorus Collection Time: 09/13/16 7:09 AM Result Value Ref Range PHOSPHORUS 3.7 2.3 - 4.8 mg/dL CBC W/Auto Diff (Reflex to Manual) Collection Time: 09/13/16 7:09 AM Result Value Ref Range WBC 10.06 3.80 - 11.00 K/uL RBC 2.89 (L) 4.20 - 5.70 M/uL HGB 9.0 (L) 13.2 - 17.0 g/dL HCT 25.8 (L) 39.0 - 50.0 % MCV 89.3 80.0 - 100.0 fl MCH 31.1 27.0 - 34.0 pg MCHC 34.9 32.0 - 35.5 g/dL RDW SD 51.2 37 - 53 fl PLT 230 150 - 400 K/uL MPV 6.5 fl DIFF TYPE AUTOMATED NEUTROPHILS 72.42 % LYMPHOCYTES 7.78 % MONOCYTES 13.64 % EOSINOPHILS 5.69 % BASOPHILS 0.47 % NEUTROPHILS ABS 7.28 1.90 - 7.40 K/uL LYMPHOCYTES ABS 0.78 (L) 1.00 - 3.90 K/uL MONOCYTES ABS 1.37 (H) 0.00 - 0.80 K/uL EOSINOPHILS ABS 0.57 (H) 0.00 - 0.50 K/uL BASOPHILS ABS 0.05 0.00 - 0.10 K/uL Glycohemoglobin A1c Collection Time: 09/13/16 7:09 AM Result Value Ref Range HEMOGLOBIN A1C 6.0 4.0 - 6.0 % ESTIMATED AVG GLUCOSE 126 mg/dL POCT glucose Collection Time: 09/13/16 12:19 PM Result Value Ref Range GLUCOSE,POC SCREEN 214 (H) 65 - 99 mg/dL POCT glucose Collection Time: 09/13/16 4:28 PM Result Value Ref Range GLUCOSE,POC SCREEN 113 (H) 65 - 99 mg/dL POCT glucose Collection Time: 09/13/16 9:11 PM Result Value Ref Range GLUCOSE,POC SCREEN 207 (H) 65 - 99 mg/dL POCT glucose Collection Time: 09/14/16 5:25 AM Result Value Ref Range GLUCOSE,POC SCREEN 141 (H) 65 - 99 mg/dL MEDICATIONS allopurinol 100 mg Oral Daily amLODIPine 10 mg Oral Daily aspirin 81 mg Oral Daily with breakfast budesonide-formoterol 2 puff Inhalation 2 times daily carvedilol 3.125 mg Oral BID cholecalciferol 2,000 Units Oral Daily guaiFENesin 600 mg Oral BID insulin lispro (human) 0-10 Units Subcutaneous TID AC insulin lispro (human) 0-5 Units Subcutaneous Nightly ipratropium-albuterol 3 mL Nebulization Q6H levothyroxine 75 mcg Oral QAM AC [START ON 09/15/2016] lidocaine 1 patch Transdermal Every Other Day lidocaine 10 mL Intradermal Once montelukast 10 mg Oral Nightly polyethylene glycol 17 g Oral Daily sevelamer 2,400 mg Oral TID sodium bicarbonate 1,300 mg Oral BID sodium chloride 10 mL Intravenous Q8H sodium chloride 10 mL Intravenous 2 times per day sodium citrate anticoagulant 4 % 6 mL Intracatheter Once per day on Sat torsemide 50 mg Oral Daily vitamin B mcsvpqo-W-nilss acid 1 tablet Oral Daily dextrose PRN: acetaminophen OR acetaminophen, albumin human, dextrose, dextrose, dextrose, diphenhydr AMINE, glucagon, glucagon, ondansetron OR ondansetron, oxyCODONE OR oxyCODONE, polye thylene glycol, sodium chloride, sodium chloride, sodium chloride Douglas Barrow MD PGY1 09/14/2016 6:29 AM I Michael Strange DO, have reviewed this note. onversion Transac tion, Provider Unknown - 09/13/2016 11:27 PM PDTFormatting of this note might be different f rom the original. Nurse Progress Note by Ksenia Lopez RN at 09/13/162326 Author: Ksenia Lopez RN Service: (none) Author Type: Registered Nurse Filed: 09/13/162329 Date of Service: 09/13/162326 Status: Signed Pearl Glue Drier: Ksenia Lopez RN (Registered Nurse) Both peripheral IV's infiltrated on initial assessment. Pt has new fistula in RUE. Only abl e to use LUE-pt very hard stick. Attempted to place new peripheral IV with no success. Call made to ED to send an RN to try for an IV. ED RN placed IV in upper left side of forehead. N OC hospitalist was made aware of new IV placement. No complaints by pt at this time. Will co ntinue to monitor. Ksenia Lopez RN Flory Brown MD - 09/13/2016 5:54 PM PDTFormatting of this note might be different fr om the original. Progress Notes by Flory Razo MD at 09/13/161753 Author: Flory Razo MD Service: Cardiology Author Type: Physician Filed: 09/13/161929 Date of Service: 09/13/161753 Status: Addendum Pearl Glue Drier: Flory Razo MD (Physician) Related Notes: Original Note by Flory Razo MD (Physician) filed at 09/13/16 8094 [facility] Service: Cardiology Progress Note Hospital Day: LOS: 6 days Post-Op Day: * No surgery found * SUBJECTIVE Patient Summary: Events Overnight: Had episode right-sided chest pain that resolved with medication. Denies shortness of breat h, orthopnea, paroxysmal nocturnal dyspnea. Tele:No significant arrythmias Scheduled Medications allopurinol 100 mg Oral Daily amLODIPine 10 mg Oral Daily aspirin 81 mg Oral Daily with breakfast budesonide-formoterol 2 puff Inhalation 2 times daily carvedilol 3.125 mg Oral BID WC cholecalciferol 2,000 Units Oral Daily guaiFENesin 600 mg Oral BID insulin lispro (human) 0-10 Units Subcutaneous TID AC insulin lispro (human) 0-5 Units Subcutaneous Nightly ipratropium-albuterol 3 mL Nebulization Q6H levothyroxine 75 mcg Oral QAM AC lidocaine 1 patch Transdermal Daily lidocaine 10 mL Intradermal Once montelukast 10 mg Oral Nightly polyethylene glycol 17 g Oral Daily sevelamer 2,400 mg Oral TID WC sodium bicarbonate 1,300 mg Oral BID sodium chloride 10 mL Intravenous Q8H sodium chloride 10 mL Intravenous 2 times per day sodium citrate anticoagulant 4 % 6 mL Intracatheter Once per day on Sat torsemide 50 mg Oral Daily vitamin B haqcbgu-Y-iimgl acid 1 tablet Oral Daily Continuous Infusions dextrose PRN Medications acetaminophen OR acetaminophen, albumin human, dextrose, dextrose, dextrose, diphenhydr AMINE, glucagon, glucagon, ondansetron OR ondansetron, oxyCODONE OR oxyCODONE, polye thylene glycol, sodium chloride, sodium chloride, sodium chloride OBJECTIVE Vital Signs: BP 99/60 mmHg | Pulse 91 | Temp(Src) 98.8 F (37.1 C) (Oral) | Resp 18 | Ht 1.702 m (5' 7") | Wt 88 kg (194 lb 0.1 oz) | BMI 30.38 kg/m2 | SpO2 96% Temp: [97.2 F (36.2 C)-98.8 F (37.1 C)] 98.8 F (37.1 C) (09/13 1526) BP: (99-125)/(56-60) 99/60 mmHg (09/13 1526) Heart Rate: [77-91] 91 (09/13 152) Resp: [18] 18 (09/13 152) SpO2: [92 %-97 %] 96 % (09/13 152) Weight: [88 kg (194 lb 0.1 oz)] 88 kg (194 lb 0.1 oz) (09/13 0341) Patient Vitals for the past 24 hrs: BP Temp Temp src Pulse Resp SpO2 Weight 09/13/16 1526 99/60 mmHg 98.8 F (37.1 C) Oral 91 18 96 % - 09/13/16 1348 - - - 77 18 96 % - 09/13/16 1141 114/60 mmHg 98.3 F (36.8 C) Oral 81 18 97 % - 09/13/16 0741 122/56 mmHg 98 F (36.7 C) Oral 87 18 96 % - 09/13/16 0721 - - - 86 18 96 % - 09/13/16 0712 - - - 88 18 96 % - 09/13/16 0450 - - - 88 18 - - 09/13/16 0440 - - - 88 18 - - 09/13/16 0341 125/60 mmHg 98.3 F (36.8 C) Oral 84 18 95 % 88 kg (194 lb 0.1 oz) 09/12/16 2319 124/60 mmHg 97.2 F (36.2 C) Oral 82 18 92 % - 09/12/16 2300 - - - - 18 92 % - 09/12/16 1921 122/58 mmHg 98.3 F (36.8 C) Oral 81 18 93 % - Intake/Output Summary (Last 24 hours) at 09/13/16 1754 Last data filed at 09/13/16 1227 Gross per 24 hour Intake 1615 ml Output 95 ml Net 1520 ml General appearance: alert, appears stated age, cooperative and no distress Head: Normocephalic, without obvious abnormality, atraumatic Eyes: negative findings: lids and lashes normal and No jaundice Nose: no discharge Lungs: rhonchi bibasilar Chest wall: mild tenderness right uper anterior chest. No deformity.Pericardial catheter deal bxiphoid, serosanguinous fluid Heart: regular rate and rhythm, S1, S2 normal, no murmur, click, rub or gallop Musculoskeletal: There is no redness, warmth, or swelling of the joints. Full range of mo tion noted. Motor strength is 5 out of 5 all extremities bilaterally. Tone is normal. Extremities: extremities normal, atraumatic, no cyanosis or edema Skin: Skin color, texture, turgor normal. No rashes or lesions Neurologic: Grossly normal DATA CBC: Lab Results Component Value Date WBC 10.06 09/13/2016 RBC 2.89* 09/13/2016 HGB 9.0* 09/13/2016 HCT 25.8* 09/13/2016 MCV 89.3 09/13/2016 MCH 31.1 09/13/2016 MCHC 34.9 09/13/2016 RDW 51.2 09/13/2016 PLT 230 09/13/2016 MPV 6.5 09/13/2016 DIFFTYPE AUTOMATED 09/13/2016 CMP: Lab Results Component Value Date NA 131* 09/13/2016 K 4.1 09/13/2016 CL 93* 09/13/2016 CO2 25 09/13/2016 ANIONGAP 17 09/13/2016 GLUF 173* 09/13/2016 BUN 40* 09/13/2016 CREATININE 7.3* 09/13/2016 BCR 6 09/11/2016 CA 7.6* 09/13/2016 CA 6.1* 04/02/2012 PROT 6.8 09/11/2016 ALB 2.8* 09/13/2016 GLOB 3.9 09/11/2016 BILITOT 0.5 09/11/2016 ALP 82 09/11/2016 AST 14 09/11/2016 ALT 17 09/11/2016 EGFR 8* 09/13/2016 PROBLEM LIST Principal Problem: Acute hyperkalemia Active Problems: Secondary renal hyperparathyroidism (HCC) 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) ESRD (end stage renal disease) on dialysis (HCC) Anemia of chronic kidney failure Dialysis AV fistula malfunction (HCC) Hyponatremia Chronic systolic heart failure (HCC) Pericardial effusion with cardiac tamponade S/P pericardiocentesis ASSESSMENT & PLAN 1. Acute pericardial effusion with pericardial tamponade status post successful pericardioc entesis September 11, 2016 2. End-stage renal disease on hemodialysis 3. Occluded right subclavian lyly status post angioplasty and stenting of the right subclav tatum and brachiocephalic veins by Dr. Garnica September 11, 2016 Patient is currently stable. Echo done today showed no pericardial effusion Drainage slowed ( about 45 cc last 12 hours) Pericardial catheter removed at bedside without complications. Monitor closely (discussed with nurse) Will repeat limited echocardiogram tomorrow to assess for recurrent pericardial effusion. Consider pericardial window if recurrent hemodynamically significant pericardial effusion. Disposition: Code Status: Full Code Flory Razo MD 09/13/2016 Precious, Mary tinoco MD - 09/13/2016 2:52 PM PDT . Progress Notes by Cosmo Soria MD at 09/13/16 9609 Author: Cosmo Soria MD Service: Nephrology Author Type: Physician Filed: 09/13/16 1604 Date of Service: 09/13/16 4399 Status: Signed Pearl Glue Drier: Cosmo Soria MD (Physician) [id number] LOS: 6 days Carol Potter is a 51 y.o. man whose PCP is Dr. ANDRY LOFTON. He is known to have ESRD as per PMH> He had been having issues with his right UE AVF since at last few weeks. He apparently had infiltration and did not complete his dialysis Saturday and did not go for dialysis Saturday as his arm was quite painful. He was supposed to follow up with Dr. Malin after initial evaluation 08/27/16 but did not show up for follow up. He had a Us Hemodialysis Access Fistula 08/27/2016 which Showed Velocity elevations through t he graft, up to 638 cm/s at the anastomosis. Fistula was widely patent. He presented to ED and was found to have hyperkalemia and urgent Nephrology consultation wa s requested by Dr. Mejia for urgent dialysis given missed dialysis and hyperkalemia with EKG changes. He indicated feeling OK without any nausea, vomiting, chest pain, shortness of breath, leg swelling. He indicated having had some urine output today. Dr. Meyer was apparently contacted by Dr. Mejia and plan was possible declotting. ICU was contacted and plan is to place a temporary dialysis catheter (no ICU beds available ). 09/08/2016 He had been complaining of cramping right hand. He was seen by Dr. Meyer and plan was for fis tulogram. 09/09/2016 s/p fistulogram and right LE tunneled CVC placement with Dr. Meyer which showed Right brachiobasilic fistula was widely patent without significant stenosis. Right subcla vian vein was occluded just proximal to junction with cephalic vein. Attempted crossing an d angioplasty but right innominate vein was also occluded. Left arm venogram done which sh ows occlusion of left subclavian vein near origin with no filling easily seen in left innomi nicanor vein. Appears to have SVC occlusion. Therefore, right groin tunneled catheter place d with tip in IVC. Will need CT venogram of chest to better evaluate central veins. Complications: Inability to cross central occlusions. Ct Chest With Iv Contrast 09/09/2016 resulted in IV infiltration at the injection site. 2. Superior vena cava was not expanded. Plan was to repeat when a new IV has been placed. 3. R ight axillary and mediastinal adenopathy. Nonspecific groundglass opacities within the left upper lobe, may represent acute inflammation or infection. 09/10/2016 Uncomplicated HD. 09/11/2016 Findings: Simultaneous contrast injection from sheaths in right arm brachiobasilic fistula and left femoral sheath demonstrate approximately 8 cm occlusion of right subclavian/brachio cephalic veins. Initial unsuccessful attempt from femoral sheath with catheter wire directin g toward left brachiocephalic vein. Subsequent successful antegrade crossing from right axil perry vein. During recanalization, it was noted that contrast was present in the pericardium and Dr. Posada was consulted and very graciously placed a pericardial drain. Subsequently, p rolonged ballooning of right subclavian and brachiocephalic veins and subsequent stent place ments of 14mm x 60mm central and 12 mm x 40 mm peripheral self expanding stents in the brach iocephalic and subclavian veins, respectively. 09/12/2016 Uncomplicated HD. He had a complicated procedure done with Dr. Garnica yesterday with hemmitchel villegas. 09/13/2016 He feels good today. He denied fever, chills, nausea, vomiting, diarrhea, shortness of breath, chest pain, cough . He is not walking given concern with right leg tunneled catheter. PMH, PSH, Social history, medications, allergies, labs and imaging reviewed as appropriate. Previous history summarized as above. Prior lab data and imaging reviewed. Old records and labs were reviewed and summarized as above. Significant medical/surgical history: ESRD secondary to Biopsy-proven Diabetic nephropathy. He is dialyzed Saturday an saturday at [place] dialysis unit using right UE AVF (Dr. Meyer). He used to have left upper extremity brachio cephalic fistula which clotted off 10/2013. Right upper extremity brachioc ephalic fistula by Dr. Meyer 02/04 DM2 Secondary hyperparathyroidism Anemia of chronic renal failure Endocarditis Remote smoker with 23 pack year smoking history (quit 2010) Possible COPD HFREF with RONY from 2012 showing EF of 40 to 45%. Family/social history: There is no family history of kidney disease with close family membe rs being on dialysis at early age. He lives at home with his "Shyanne" and is a former sm oker. There is remote history of Etoh/recreational drug use. He has no biological children. Father had colon cancer, heart disease. Mother . ROS: Review of systems is as per the history of present illness. Otherwise 14 organ system revie w of systems was done and is negative. Examination: Constitutional: Sleeping in bed comfortably without shortness of breath.. HEENT: Thick neck without JVD, non icteric sclera. Cardiovascular: S1soft. No friction rub. No S3. Pericardial drain +. LUNGS: Effort fair. Scattered rales at bases. Abdominal: Soft. No distension and no mass. There is no rebound tenderness and no guarding. EXT: B/L LE with chronic venous changes. distal lower extremity pulses not palpable Skin: Skin is warm and dry. Chronic skin thickening right AVF. Hemodialysis access: Left upper extremity brachiocephalic fistula, clotted Right UE brachiocephalic AVF with bruit and infiltration. Right LE tunneled CVC Vital Signs: BP 114/60 mmHg | Pulse 77 | Temp(Src) 98.3 F (36.8 C) (Oral) | Resp 18 | Ht 1.702 m (5' 7") | Wt 88 kg (194 lb 0.1 oz) | BMI 30.38 kg/m2 | SpO2 96% Data evaluation: Lab Results Component Value Date BUN 40* 09/13/2016 CREATININE 7.3* 09/13/2016 EGFR 8* 09/13/2016 NA 131* 09/13/2016 K 4.1 09/13/2016 CL 93* 09/13/2016 CO2 25 09/13/2016 CA 7.6* 09/13/2016 PHOS 3.6 09/13/2016 PHOS 3.7 09/13/2016 MG 2.2 09/13/2016 ALB 2.8* 09/13/2016 HGB 9.0* 09/13/2016 Ct Chest With Iv Contrast 09/10/2016 showed occlusion of the RIGHT subclavian vein just prox imal to the RIGHT 1st rib, probably due to thrombosis. 2. Severe narrowing of the LEFT subc lavian vein as it passes over the LEFT 1st rib. 3. Apparent fibrotic stenosis of the distal aspect of the superior vena cava as it enters the RIGHT atrium. 4. Moderate RIGHT axillary lymphadenopathy, probably reactive. 5. Diffuse subcutaneous edema throughout the RIGHT ant erior chest wall and the lateral chest wall. 6. Moderately large subcutaneous collateral ve nous blood flow in the upper anterior RIGHT chest, suggesting chronic stenosis or occlusion of the RIGHT subclavian vein. Echo 09/11/2016 showed normal EF of 55 to 60%. Assessment and Recommendations: ESRD on HD Mild hyponatremia SVC stenosis with angioplasty Hemopericardium s/p pericardial drain Anemia of chronic renal failure HTN COPD BP is labile with target BP of 130 to 150 mmHg on non dialysis days/pre dialysis. This is l ikely from dietary indiscretion. He is clinically minimally hypervolemic. Wheezing represents likely bronchospasm and not h ypervolemia. Anemia is moderately severe SVC stenosis has had angioplasty done although this was complicated by hemopericardium. Echo report from 09/13/2016 is pending and drainage seems to be reduced. On Saturday we will attempt to use right UE AVF and check for venous pressure. If AVF is working well then tunneled CVC may be removed. Pericardial drain to be removed per cardiology. Continue current medications. Use Beta agonist/anticholinergic for bronchospasm. He does have a 23 pack year smoking h istory and possibly has COPD. I discussed with him and his the concept of clotted AVF/SVC syndrome 2 gm Na, 1 gm K, 1 gm PO4, 1 gm/kg protein diet. Please dose all medications for an eGFR of less than 15 ml/min/1.73 m2. No IV contrast studies. No NSAIDS/ADAM 2 inhibitors, Aluminum/magnesium containing antacids, magnesium/phosphate con taining enemas. Fluid restriction 1.5 L in 24 hour period. Strict I/O Daily CMP (including Mg, PO4). Plan of care was discussed with Dr. Annika SORIA MD 09/13/2016 Portions of my previous notes have been carried over for continuity of care. He was seen earlier in the day and charting was completed later after rounds. Dictation software, Meta[employer], was used which may contain error for similar sounding words. Pe rsonal communication is requested for any clarification. Prognosis guarded in view of multiple comorbid illnesses and ESRD allopurinol 100 mg Oral Daily amLODIPine 10 mg Oral Daily aspirin 81 mg Oral Daily with breakfast budesonide-formoterol 2 puff Inhalation 2 times daily carvedilol 3.125 mg Oral BID WC cholecalciferol 2,000 Units Oral Daily guaiFENesin 600 mg Oral BID insulin lispro (human) 0-10 Units Subcutaneous TID AC insulin lispro (human) 0-5 Units Subcutaneous Nightly ipratropium-albuterol 3 mL Nebulization Q6H levothyroxine 75 mcg Oral QAM AC lidocaine 1 patch Transdermal Daily lidocaine 10 mL Intradermal Once montelukast 10 mg Oral Nightly polyethylene glycol 17 g Oral Daily sevelamer 2,400 mg Oral TID WC sodium bicarbonate 1,300 mg Oral BID sodium chloride 10 mL Intravenous Q8H sodium chloride 10 mL Intravenous 2 times per day sodium citrate anticoagulant 4 % 6 mL Intracatheter Once per day on Sat torsemide 50 mg Oral Daily vitamin B skpjjvu-K-hgmni acid [address] Christianson will assume nephrology service as of 8 am tomorrow. onversion Transactio n, Provider Unknown - 09/13/2016 1:43 PM PDT Case Management by Lola Farfan RN at 09/13/16 9274 Author: Lola Farfan RN Service: (none) Author Type: Registered Nurse Filed: 09/13/16 6700 Date of Service: 09/13/16 9009 Status: Signed Pearl Glue Drier: Lola Hurlbert, RN (Registered Nurse) Discharge Planning: CM attended morning rounds with nursing staff, pt to d/c poss 09/15 home with spouse. CM sent FWW script to DME, FWW to be delivered to pt room 09/14. alvor sonDouglas - 09/13/2016 6:35 AM PDTFormatting of this note might be different from the betina dasia. Progress Notes by Douglas Barrow MD-R1 at 09/13/16 0694 Author: Douglas Barrow MD-R1 Service: Hospitalist Author Type: Resident-Y1 Filed: 09/13/16 2496 Date of Service: 09/13/1628 Status: Attested Pearl Glue Drier: Douglas Barrow MD-R1 (Resident-Y1) Cosigner: Simone Roblero MD at 09/13/16 1 337 Attestation signed by Simone Roblero MD at 09/13/16 1146 I have seen and examined the patient and agree with residents note Will switch to oral pain meds as patient gets very somnolent Still has pericardial drain which has bloody output. PROGRESS NOTE 09/13/2016 for Carol Potter on the hospitalist service. ASSESSMENT & PLAN Hyperkalemia Resolved - HD MWF - Appreciate Nephrology recommendations. 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 There was concern that he had central occlusion of the SVC, which did not turning lathe tender to be the case. Patient underwen t recanalization of the right subclavian successfully on 09/11 and the right subclavian is n ow patent with two stents placed. He is now endorsing pain in the area where the recanalizat ion was performed. - Fistula now available for use - Lidocaine patch - Transfer to oral narcotics, will add miralax Hemopericardium This was an intraoperative complication of the above procedure. Please see the op note. The patient now has a pericardial drain in place. It is draining nearly serosanguinous fluid at this time. Will defer to cardiology on the timing of removal. AVOID ANY BLOOD THINNING MEDI CATIONS ESRD Patient has ESRD likely 2/2 to DMII. He is under the care of nephrology and receives HD MWF . He is now back on his regular dialysis schedule here in the hospital. - Continue HD MWF - Appreciate Nephrology recommendations DMII Blood sugar has been well controlled, will continue to monitor. Hypothyroidism Continue levothyroxine Asthma Continue monteleukast, cont symbicort, cont duoneb PRN add mucinex. His lungs sound much im proved today Problem list: Principal Problem: Acute hyperkalemia Active Problems: Secondary renal hyperparathyroidism (HCC) 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) ESRD (end stage renal disease) on dialysis (HCC) Anemia of chronic kidney failure Dialysis AV fistula malfunction (HCC) Hyponatremia Chronic systolic heart failure (HCC) Pericardial effusion with cardiac tamponade S/P pericardiocentesis Length of stay: 6 days DVT prophylaxis: Heparin Code status: Full Disposition: Inpatient PATIENT SUMMARY This is a 51 y/o male with a h/o ESRD requiring HD, DM II, and hypothyroidism who presented to [facility] with hyperkalemia 2/2 missing dialysis appointments as his AVF was not functioning. SUBJECTIVE Patient had pain overnight, otherwise he has no CP, no N/V, OBJECTIVE Temp: [97.2 F (36.2 C)-98.3 F (36.8 C)] 98.3 F (36.8 C) (09/13 114) BP: (85-125)/(48-60) 114/60 mmHg (09/13 114) Heart Rate: [79-88] 81 (09/13 114) Resp: [18] 18 (09/13 114) SpO2: [92 %-100 %] 97 % (09/13 114) Weight: [88 kg (194 lb 0.1 oz)] 88 kg (194 lb 0.1 oz) (09/13 0341) Physical Exam Constitutional: He is oriented to person, place, and time. Patient was in bed watching professional wrestling, he appeared comfortable, he was not in any distress HENT: Head: Normocephalic and atraumatic. Mouth/Throat: No oropharyngeal exudate. Very poor dentition, most noted in his front teeth Eyes: Conjunctivae are normal. No scleral icterus. Neck: No tracheal deviation present. Cardiovascular: Normal rate, regular rhythm and normal heart sounds. Femoral CVC was present and the dressing was CDI, there is a pericardial drain in place paulie ining serosanguinous blood Pulmonary/Chest: Effort normal. No stridor. No respiratory distress. Decreased wheezing present Abdomina/Gl: Soft. He exhibits no distension. Musculoskeletal: BLE non edematous, no palpable cords Neurological: He is alert and oriented to person, place, and time. Psychiatric: He has a normal mood and affect. Nursing note and vitals reviewed. Recent Results (from the past 24 hour(s)) Renal function panel Collection Time: 09/13/16 7:09 AM Result Value Ref Range SODIUM 131 (L) 135 - 145 mmol/L POTASSIUM 4.1 3.5 - 4.9 mmol/L CHLORIDE 93 (L) 99 - 109 mmol/L CO2 25 23 - 32 mmol/L ANION GAP AGAP 17 5 - 20 mmol/L GLUCOSE 173 (H) 65 - 99 mg/dL BUN 40 (H) 8 - 25 mg/dL CREATININE 7.3 (H) 0.70 - 1.30 mg/dL CALCIUM 7.6 (L) 8.5 - 10.5 mg/dL Albumin 2.8 (L) 3.6 - 5.0 g/dL PHOSPHORUS 3.6 2.3 - 4.8 mg/dL EGFR 8 (L) >60 mL/min/1.73m2 Magnesium Collection Time: 09/13/16 7:09 AM Result Value Ref Range MAGNESIUM 2.2 1.7 - 2.4 mg/dL Phosphorus Collection Time: 09/13/16 7:09 AM Result Value Ref Range PHOSPHORUS 3.7 2.3 - 4.8 mg/dL CBC W/Auto Diff (Reflex to Manual) Collection Time: 09/13/16 7:09 AM Result Value Ref Range WBC 10.06 3.80 - 11.00 K/uL RBC 2.89 (L) 4.20 - 5.70 M/uL HGB 9.0 (L) 13.2 - 17.0 g/dL HCT 25.8 (L) 39.0 - 50.0 % MCV 89.3 80.0 - 100.0 fl MCH 31.1 27.0 - 34.0 pg MCHC 34.9 32.0 - 35.5 g/dL RDW SD 51.2 37 - 53 fl PLT 230 150 - 400 K/uL MPV 6.5 fl DIFF TYPE AUTOMATED NEUTROPHILS 72.42 % LYMPHOCYTES 7.78 % MONOCYTES 13.64 % EOSINOPHILS 5.69 % BASOPHILS 0.47 % NEUTROPHILS ABS 7.28 1.90 - 7.40 K/uL LYMPHOCYTES ABS 0.78 (L) 1.00 - 3.90 K/uL MONOCYTES ABS 1.37 (H) 0.00 - 0.80 K/uL EOSINOPHILS ABS 0.57 (H) 0.00 - 0.50 K/uL BASOPHILS ABS 0.05 0.00 - 0.10 K/uL MEDICATIONS allopurinol 100 mg Oral Daily amLODIPine 10 mg Oral Daily aspirin 81 mg Oral Daily with breakfast budesonide-formoterol 2 puff Inhalation 2 times daily carvedilol 3.125 mg Oral BID WC cholecalciferol 2,000 Units Oral Daily guaiFENesin 600 mg Oral BID ipratropium-albuterol 3 mL Nebulization Q6H levothyroxine 75 mcg Oral QAM AC lidocaine 1 patch Transdermal Daily lidocaine 10 mL Intradermal Once montelukast 10 mg Oral Nightly sevelamer 2,400 mg Oral TID WC sodium bicarbonate 1,300 mg Oral BID sodium chloride 10 mL Intravenous Q8H sodium chloride 10 mL Intravenous 2 times per day sodium citrate anticoagulant 4 % 6 mL Intracatheter Once per day on Sat torsemide 50 mg Oral Daily vitamin B qxdyrue-O-iyoqm acid 1 tablet Oral Daily PRN: acetaminophen OR acetaminophen, albumin human, diphenhydrAMINE, ondansetron OR onda nsetron, oxyCODONE OR oxyCODONE, polyethylene glycol, sodium chloride, sodium chloride, sodium chloride Douglas Barrow MD PGY1 09/13/2016 11:55 AM I Michael Strange DO, have reviewed this note. onversion Transac tion, Provider Unknown - 09/13/2016 5:18 AM PDTFormatting of this note might be different f rom the original. Nurse Progress Note by Ofelia Morales RN at 09/13/16517 Author: Ofelia Morales RN Service: (none) Author Type: Registered Nurse Filed: 09/13/16 0538 Date of Service: 09/13/16517 Status: Addendum Pearl Glue Drier: Ofelia Morales RN (Registered Nurse) Related Notes: Original Note by Ofelia Morales RN (Registered Nurse) filed at 09/13/16 05 24 No acute events overnight. RUE fistula bruit and trill present at this time. RLE tunneled cath site was noted to have some bleeding overnight; site appears soft and is not bleeding c ontinuously or a significant amount - WCM. Pericardial drainage has slowed significantly co mpared to last night. Only 45 mL output overnight. Drainage appears serosanguinous at this time with minimal clots. LLE groin site is soft, dry and intact. Pt has ambulated to the bathroom with SBA overnight without complications. Pt has complained of pain consistently overnight, and received 1mg of dilaudid approximatel y every 3-4 hours. BPs overnight in the 120's, improve from yesterday. WCM. Ofelia Morales RN. Flory Brown MD - 09/12/2016 3:30 PM PDTFormatting of this note might be different fr om the original. Progress Notes by Flory Razo MD at 09/12/16 1530 Author: Flory Razo MD Service: Cardiology Author Type: Physician Filed: 09/12/16 9392 Date of Service: 09/12/16 1530 Status: Signed Pearl Glue Drier: Flory Razo MD (Physician) [facility] Service: Cardiology Progress Note Hospital Day: LOS: 5 days Post-Op Day: * No surgery found * SUBJECTIVE Patient Summary: Events Overnight: Complete right-sided chest pain that had improved his pain medication. Denies shortness of breath, orthopnea, paroxysmal nocturnal dyspnea. Cough is improving Scheduled Medications allopurinol 100 mg Oral Daily amLODIPine 10 mg Oral Daily aspirin 81 mg Oral Daily with breakfast budesonide-formoterol 2 puff Inhalation 2 times daily carvedilol 3.125 mg Oral BID WC cholecalciferol 2,000 Units Oral Daily guaiFENesin 600 mg Oral BID ipratropium-albuterol 3 mL Nebulization Q6H levothyroxine 75 mcg Oral QAM AC lidocaine 10 mL Intradermal Once montelukast 10 mg Oral Nightly sevelamer 2,400 mg Oral TID WC sodium bicarbonate 1,300 mg Oral BID sodium chloride 10 mL Intravenous Q8H sodium chloride 10 mL Intravenous 2 times per day sodium citrate anticoagulant 4 % 6 mL Intracatheter Once per day on Sat torsemide 50 mg Oral Daily vitamin B jrboffh-W-iszvl acid 1 tablet Oral Daily Continuous Infusions PRN Medications acetaminophen OR acetaminophen, albumin human, diphenhydrAMINE, HYDROmorphone OR HY DROmorphone, ondansetron OR ondansetron, polyethylene glycol, sodium chloride, sodium ch loride, sodium chloride OBJECTIVE Vital Signs: BP 147/69 mmHg | Pulse 84 | Temp(Src) 98.2 F (36.8 C) (Oral) | Resp 18 | Ht 1.702 m (5' 7") | Wt 84.1 kg (185 lb 6.5 oz) | BMI 29.03 kg/m2 | SpO2 100% Temp: [97.8 F (36.6 C)-100 F (37.8 C)] 98.2 F (36.8 C) (09/13 1127) BP: (81-181)/(49-95) 147/69 mmHg (09/12 1145) Heart Rate: [52-103] 84 (09/12 1145) Resp: [12-18] 18 (09/12 112) SpO2: [91 %-100 %] 100 % (09/12 112) Weight: [84.1 kg (185 lb 6.5 oz)-85.1 kg (187 lb 9.8 oz)] 84.1 kg (185 lb 6.5 oz) (09/12 1 123) FiO2 : [2 %] 2 % (09/11 1606) Patient Vitals for the past 24 hrs: BP Temp Temp src Pulse Resp SpO2 Weight 09/12/16 1145 147/69 mmHg - - 84 - - - 09/12/16 1128 147/69 mmHg 98.2 F (36.8 C) Oral 82 18 100 % - 09/12/16 1123 112/49 mmHg - - 83 - - 84.1 kg (185 lb 6.5 oz) 09/12/16 1115 137/50 mmHg - - 82 - - - 09/12/16 1100 145/65 mmHg - - 82 - - - 09/12/16 1052 - - - 81 16 99 % - 09/12/16 1045 154/58 mmHg - - 82 - - - 09/12/16 1030 132/58 mmHg - - 80 - - - 09/12/16 1015 124/57 mmHg - - 81 - - - 09/12/16 1000 129/59 mmHg - - 81 - 99 % - 09/12/16 0945 121/60 mmHg - - 81 - - - 09/12/16 0930 120/59 mmHg - - 81 - - - 09/12/16 0915 108/56 mmHg - - 82 - - - 09/12/16 0900 114/55 mmHg - - 83 - - - 09/12/16 0845 108/59 mmHg - - 85 - - - 09/12/16 0830 123/58 mmHg - - 85 - - - 09/12/16 0825 118/56 mmHg - - 85 - - - 09/12/16 0817 (!) 83/53 mmHg - - 84 - - - 09/12/16 0815 (!) 81/51 mmHg - - 84 - - - 09/12/16 0800 93/59 mmHg 98.8 F (37.1 C) - 87 - - - 09/12/16 0745 116/56 mmHg - - 88 - - - 09/12/16 0737 119/60 mmHg - - 89 - 98 % - 09/12/16 0730 119/60 mmHg - - 91 - - - 09/12/16 0723 125/64 mmHg - - 89 - - - 09/12/16 0634 150/60 mmHg 100 F (37.8 C) Oral - 18 93 % 85.1 kg (187 lb 9.8 oz) 09/12/16 0436 - - - 101 16 - - 09/12/16 0430 - - - 100 16 - - 09/12/16 0317 136/60 mmHg 98.4 F (36.9 C) Oral 103 18 95 % - 09/11/16 2335 167/74 mmHg - - - - - - 09/11/16 2315 150/69 mmHg - - - - - - 09/11/16 2300 157/71 mmHg - - - - - - 09/11/16 2251 150/67 mmHg - - 86 16 97 % - 09/11/16 2244 - 98.4 F (36.9 C) Oral 86 18 91 % - 09/11/16 2230 (!) 146/95 mmHg - - - - - - 09/11/16 2200 156/70 mmHg - - - - - - 09/11/16 2130 163/78 mmHg - - - - - - 09/11/162099 161/77 mmHg - - - - - - 09/11/162029 152/67 mmHg - - - - - - 09/11/162009 166/74 mmHg 97.8 F (36.6 C) Oral 82 18 99 % - 09/11/16 1920 (!) 181/93 mmHg - - 52 14 98 % - 09/11/16 1606 161/82 mmHg - - 75 12 100 % - 09/11/16 1545 178/86 mmHg - - 77 16 100 % - Intake/Output Summary (Last 24 hours) at 09/12/16 1530 Last data filed at 09/12/16 1443 Gross per 24 hour Intake 2890 ml Output 3890 ml Net -1000 ml General appearance: alert, appears stated age, cooperative and no distress Head: Normocephalic, without obvious abnormality, atraumatic Eyes: negative findings: lids and lashes normal and No jaundice Nose: no discharge Lungs: rhonchi bibasilar Chest wall: mild tenderness right uper anterior chest. No deformity.Pericardial catheter deal bxiphoid. Heart: regular rate and rhythm, S1, S2 normal, no murmur, click, rub or gallop Musculoskeletal: There is no redness, warmth, or swelling of the joints. Full range of mo tion noted. Motor strength is 5 out of 5 all extremities bilaterally. Tone is normal. Extremities: extremities normal, atraumatic, no cyanosis or edema Skin: Skin color, texture, turgor normal. No rashes or lesions Neurologic: Grossly normal DATA CBC: Lab Results Component Value Date WBC 11.82* 09/12/2016 RBC 2.92* 09/12/2016 HGB 8.9* 09/12/2016 HCT 26.2* 09/12/2016 MCV 89.5 09/12/2016 MCH 30.6 09/12/2016 MCHC 34.1 09/12/2016 RDW 51.2 09/12/2016 PLT 255 09/12/2016 MPV 6.5 09/12/2016 DIFFTYPE AUTOMATED 09/12/2016 CMP: Lab Results Component Value Date NA 130* 09/12/2016 K 4.9 09/12/2016 CL 93* 09/12/2016 CO2 24 09/12/2016 ANIONGAP 17 09/12/2016 GLUF 189* 09/12/2016 BUN 52* 09/12/2016 CREATININE 8.7* 09/12/2016 BCR 6 09/11/2016 CA 7.1* 09/12/2016 CA 6.1* 04/02/2012 PROT 6.8 09/11/2016 ALB 2.7* 09/12/2016 GLOB 3.9 09/11/2016 BILITOT 0.5 09/11/2016 ALP 82 09/11/2016 AST 14 09/11/2016 ALT 17 09/11/2016 EGFR 7* 09/12/2016 PROBLEM LIST Principal Problem: Acute hyperkalemia Active Problems: Secondary renal hyperparathyroidism (HCC) 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) ESRD (end stage renal disease) on dialysis (HCC) Anemia of chronic kidney failure Dialysis AV fistula malfunction (HCC) Hyponatremia Chronic systolic heart failure (HCC) ASSESSMENT & PLAN 1. Acute pericardial effusion with pericardial tamponade status post successful pericardioc entesis September 11, 2016 2. End-stage renal disease on hemodialysis 3. Occluded right subclavian artery status post plasty and stenting of the right subclavian and brachiocephalic veins by Dr. Garnica September 11, 2016 Patient is stable post pericardiocentesis. He continued to have significant drainage over t he last 24 hours (290 cc) Picardial catheter for more the liberty assist tomorrow, Limited Echocardiogram tomorrow morning. Disposition: Code Status: Full Code Flory Razo MD 09/12/2016 Alexander Lang MD - 09/12/2016 9:00 AM PDT . Progress Notes by Cosmo Soria MD at 09/12/16 0900 Author: Cosmo Soria MD Service: Nephrology Author Type: Physician Filed: 09/12/16 0288 Date of Service: 09/12/16 0900 Status: Signed Pearl Glue Drier: Cosmo Soria MD (Physician) [id number] LOS: 5 days Carol Potter is a 51 y.o. man whose PCP is Dr. ANDRY LOFTON. He is known to have ESRD as per PMH> He had been having issues with his right UE AVF since at last few weeks. He apparently had infiltration and did not complete his dialysis Saturday and did not go for dialysis Saturday as his arm was quite painful. He was supposed to follow up with Dr. Malin after initial evaluation 08/27/16 but did not show up for follow up. He had a Us Hemodialysis Access Fistula 08/27/2016 which Showed Velocity elevations through t he graft, up to 638 cm/s at the anastomosis. Fistula was widely patent. He presented to ED and was found to have hyperkalemia and urgent Nephrology consultation wa s requested by Dr. Mejia for urgent dialysis given missed dialysis and hyperkalemia with EKG changes. He indicated feeling OK without any nausea, vomiting, chest pain, shortness of breath, leg swelling. He indicated having had some urine output today. Dr. Meyer was apparently contacted by Dr. Mejia and plan was possible declotting. ICU was contacted and plan is to place a temporary dialysis catheter (no ICU beds available ). 09/08/2016 He had been complaining of cramping right hand. He was seen by Dr. Meyer and plan was for fis tulogram. 09/09/2016 s/p fistulogram and right LE tunneled CVC placement with Dr. Meyer which showed Right brachiobasilic fistula was widely patent without significant stenosis. Right subcla vian vein was occluded just proximal to junction with cephalic vein. Attempted crossing an d angioplasty but right innominate vein was also occluded. Left arm venogram done which sh ows occlusion of left subclavian vein near origin with no filling easily seen in left innomi nicanor vein. Appears to have SVC occlusion. Therefore, right groin tunneled catheter place d with tip in IVC. Will need CT venogram of chest to better evaluate central veins. Complications: Inability to cross central occlusions. Ct Chest With Iv Contrast 09/09/2016 resulted in IV infiltration at the injection site. 2. Superior vena cava was not expanded. Plan was to repeat when a new IV has been placed. 3. R ight axillary and mediastinal adenopathy. Nonspecific groundglass opacities within the left upper lobe, may represent acute inflammation or infection. 09/10/2016 Uncomplicated HD. 09/11/2016 Findings: Simultaneous contrast injection from sheaths in right arm brachiobasilic fistula and left femoral sheath demonstrate approximately 8 cm occlusion of right subclavian/brachio cephalic veins. Initial unsuccessful attempt from femoral sheath with catheter wire directin g toward left brachiocephalic vein. Subsequent successful antegrade crossing from right axil perry vein. During recanalization, it was noted that contrast was present in the pericardium and Dr. Posada was consulted and very graciously placed a pericardial drain. Subsequently, p rolonged ballooning of right subclavian and brachiocephalic veins and subsequent stent place ments of 14mm x 60mm central and 12 mm x 40 mm peripheral self expanding stents in the brach iocephalic and subclavian veins, respectively. 09/12/2016 He was seen on HD with RN "Brittany". Complications identified: Hypotension. He had a complicated procedure done with Dr. Garnica yesterday with hemopericardium. PMH, PSH, Social history, medications, allergies, labs and imaging reviewed as appropriate. Previous history summarized as above. Prior lab data and imaging reviewed. Old records and labs were reviewed and summarized as above. Significant medical/surgical history: ESRD secondary to Biopsy-proven Diabetic nephropathy. He is dialyzed Saturday an d Saturday at [place] dialysis unit using right UE AVF (Dr. Meyer). He used to have left upper extremity brachio cephalic fistula which clotted off 10/2013. Right upper extremity brachioc ephalic fistula by Dr. Meyer 02/04 DM2 Secondary hyperparathyroidism Anemia of chronic renal failure Endocarditis Remote smoker with 23 pack year smoking history (quit 2010) Possible COPD HFREF with RONY from 2012 showing EF of 40 to 45%. Family/social history: There is no family history of kidney disease with close family membe rs being on dialysis at early age. He lives at home with his "Shyanne" and is a former sm oker. There is remote history of Etoh/recreational drug use. He has no biological children. Father had colon cancer, heart disease. Mother . ROS: Review of systems is as per the history of present illness. Otherwise 14 organ system revie w of systems was done and is negative. Examination: Constitutional: Sleeping in bed comfortably without shortness of breath.. HEENT: Thick neck without JVD, non icteric sclera. Cardiovascular: S1soft. No friction rub. No S3. Pericardial drain +. LUNGS: Effort fair. Scattered rales at bases. Abdominal: Soft. No distension and no mass. There is no rebound tenderness and no guarding. EXT: B/L LE with chronic venous changes. distal lower extremity pulses not palpable Skin: Skin is warm and dry. Chronic skin thickening right AVF. Hemodialysis access: Left upper extremity brachiocephalic fistula, clotted Right UE brachiocephalic AVF with bruit and infiltration. Right LE tunneled CVC Vital Signs: BP 147/69 mmHg | Pulse 84 | Temp(Src) 98.2 F (36.8 C) (Oral) | Resp 18 | Ht 1.702 m (5' 7") | Wt 84.1 kg (185 lb 6.5 oz) | BMI 29.03 kg/m2 | SpO2 100% Data evaluation: Lab Results Component Value Date BUN 52* 09/12/2016 CREATININE 8.7* 09/12/2016 EGFR 7* 09/12/2016 NA 130* 09/12/2016 K 4.9 09/12/2016 CL 93* 09/12/2016 CO2 24 09/12/2016 CA 7.1* 09/12/2016 PHOS 4.5 09/12/2016 MG 2.2 09/12/2016 ALB 2.7* 09/12/2016 HGB 8.9* 09/12/2016 Ct Chest With Iv Contrast 09/10/2016 showed occlusion of the RIGHT subclavian vein just prox imal to the RIGHT 1st rib, probably due to thrombosis. 2. Severe narrowing of the LEFT subc lavian vein as it passes over the LEFT 1st rib. 3. Apparent fibrotic stenosis of the distal aspect of the superior vena cava as it enters the RIGHT atrium. 4. Moderate RIGHT axillary lymphadenopathy, probably reactive. 5. Diffuse subcutaneous edema throughout the RIGHT ant erior chest wall and the lateral chest wall. 6. Moderately large subcutaneous collateral ve nous blood flow in the upper anterior RIGHT chest, suggesting chronic stenosis or occlusion of the RIGHT subclavian vein. Echo 09/11/2016 showed normal EF of 55 to 60%. Assessment and Recommendations: ESRD on HD Mild hyponatremia SVC stenosis with angioplasty Hemopericardium Anemia of chronic renal failure HTN COPD BP is reasonably controlled but labile with target BP of 130 to 150 mmHg on non dialysis da ys/pre dialysis. This is likely from dietary indiscretion. He is clinically minimally hypervolemic. Wheezing represents likely bronchospasm and not h ypervolemia. Anemia is moderately severe SVC stenosis has had angioplasty done although this was complicated by hemopericardium. Plan for heparin free dialysis today. On Saturday we will attempt to use right UE AVF and check for venous pressure. If AVF is working well then tunneled CVC may be removed. Pericardial drain to be removed per cardiology. Continue current medications. Use Beta agonist/anticholinergic for bronchospasm. He does have a 23 pack year smoking h istory and possibly has COPD. I discussed with him and his the concept of clotted AVF/SVC syndrome 2 gm Na, 1 gm K, 1 gm PO4, 1 gm/kg protein diet. Please dose all medications for an eGFR of less than 15 ml/min/1.73 m2. No IV contrast studies. No NSAIDS/ADAM 2 inhibitors, Aluminum/magnesium containing antacids, magnesium/phosphate con taining enemas. Fluid restriction 1.5 L in 24 hour period. Strict I/O Daily CMP (including Mg, PO4). Plan of care was discussed with Dr. Roblero, Dr. Meyer and Dr. Garnica. Total time: 36 min More than 50% coordination of care and In counseling regarding hemopericardium and AVF foll ow up. (time spent in explanation of diagnosis, prognosis, treatment plan and options of treatment ) COSMO SORIA MD 09/12/2016 Portions of my previous notes have been carried over for continuity of care. He was seen earlier in the day and charting was completed later after rounds. Dictation software, Metafor[employer], was used which may contain error for similar sounding words. Pe rsonal communication is requested for any clarification. Prognosis guarded in view of multiple comorbid illnesses and ESRD allopurinol 100 mg Oral Daily amLODIPine 10 mg Oral Daily aspirin 81 mg Oral Daily with breakfast budesonide-formoterol 2 puff Inhalation 2 times daily carvedilol 3.125 mg Oral BID WC cholecalciferol 2,000 Units Oral Daily guaiFENesin 600 mg Oral BID ipratropium-albuterol 3 mL Nebulization Q6H levothyroxine 75 mcg Oral QAM AC lidocaine 10 mL Intradermal Once montelukast 10 mg Oral Nightly sevelamer 2,400 mg Oral TID WC sodium bicarbonate 1,300 mg Oral BID sodium chloride 10 mL Intravenous Q8H sodium chloride 10 mL Intravenous 2 times per day sodium citrate anticoagulant 4 % 6 mL Intracatheter Once per day on Sat torsemide 50 mg Oral Daily vitamin B nnjzvbw-D-zwkqn acid 1 tablet Oral Daily Douglas Bess - 0 09/12/2016 6:42 AM PDT Progress Notes by Douglas Barrow MD-R1 at 09/12/16 0642 Author: DAMIÁN KuR1 Service: Hospitalist Author Type: Resident-Y1 Filed: 09/12/16 1217 Date of Service: 09/12/16 0642 Status: Attested Pearl Glue Drier: Douglas Barrow MD-R1 (Resident-Y1) Cosigner: Simone Roblero MD at 09/12/16 1 307 Attestation signed by Simone Roblero MD at 09/12/16 1307 I have seen and examined the patient and agree with residents note Patient developed hemope ricardium during IR procedure needed Precardial drain. . PROGRESS NOTE 09/12/2016 for Carol Potter on the hospitalist service. ASSESSMENT & PLAN Hyperkalemia His potassium has continued to be normal. - HD MWF - Appreciate Nephrology recommendations. 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 There was concern that he had central occlusion of the SVC. Patient underwent recanalization successfully yesterday and the right subclavian is now patent with two stents placed. Ideally, he would be on plav ix, but given the intraoperative complication, that is contraindicated at this time. - Fistula now available for use Hemopericardium This was an intraoperative complication of the above procedure. Please see the op note. The patient now has a pericardial drain in place. It is draining nearly serosanguinous fluid at this time. Will defer to cardiology on the timing of removal. AVOID ANY BLOOD THINNING MEDI CATIONS ESRD Patient has ESRD likely 2/2 to DMII. He is under the care of nephrology and receives HD MWF . He is now back on his regular dialysis schedule here in the hospital. - Continue HD MWF - Appreciate Nephrology recommendations DMII Blood sugar has been well controlled, will continue to monitor. Hypothyroidism Continue levothyroxine, note from 09/10 was mistyped and stated Levaquin, the patient is no t on Levaquin. Asthma Continue monteleukast, cont symbicort, cont duoneb PRN Problem list: Principal Problem: Acute hyperkalemia Active Problems: Secondary renal hyperparathyroidism (HCC) 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) ESRD (end stage renal disease) on dialysis (HCC) Anemia of chronic kidney failure Dialysis AV fistula malfunction (HCC) Hyponatremia Chronic systolic heart failure (HCC) Length of stay: 5 days DVT prophylaxis: Heparin Code status: Full Disposition: Inpatient PATIENT SUMMARY This is a 51 y/o male with a h/o ESRD requiring HD, DM II, and hypothyroidism who presented to [facility] with hyperkalemia 2/2 missing dialysis appointments as his AVF was not functioning. SUBJECTIVE Patient was having dialysis this AM, he was doing well, no complaints OBJECTIVE Temp: [97.8 F (36.6 C)-100 F (37.8 C)] 98.2 F (36.8 C) (09/12 112) BP: (81-181)/(49-95) 147/69 mmHg (09/12 1145) Heart Rate: [52-103] 84 (09/12 1145) Resp: [12-189] 18 (09/12 1128) SpO2: [91 %-100 %] 100 % (09/12 1128) Weight: [84.1 kg (185 lb 6.5 oz)-85.1 kg (187 lb 9.8 oz)] 84.1 kg (185 lb 6.5 oz) (09/12 1 123) FiO2 : [2 %] 2 % (09/11 1606) Physical Exam Constitutional: He is oriented to person, place, and time. Patient was in bed and awake tolerating HD well HENT: Head: Normocephalic and atraumatic. Mouth/Throat: No oropharyngeal exudate. Very poor dentition, most noted in his front teeth Neck: No tracheal deviation present. Cardiovascular: Normal rate, regular rhythm and normal heart sounds. Femoral CVC was present and the dressing was CDI, there is a pericardial drain in place paulie ining serosanguinous blood Pulmonary/Chest: Effort normal. No stridor. No respiratory distress. Diffuse, mild, wheezes Abdomina/Gl: Soft. He exhibits no distension. Neurological: He is alert and oriented to person, place, and time. Psychiatric: He has a normal mood and affect. Nursing note and vitals reviewed. Recent Results (from the past 24 hour(s)) Renal function panel Collection Time: 09/12/16 7:22 AM Result Value Ref Range SODIUM 130 (L) 135 - 145 mmol/L POTASSIUM 4.9 3.5 - 4.9 mmol/L CHLORIDE 93 (L) 99 - 109 mmol/L CO2 24 23 - 32 mmol/L ANION GAP AGAP 17 5 - 20 mmol/L GLUCOSE 189 (H) 65 - 99 mg/dL BUN 52 (H) 8 - 25 mg/dL CREATININE 8.7 (H) 0.70 - 1.30 mg/dL CALCIUM 7.1 (L) 8.5 - 10.5 mg/dL Albumin 2.7 (L) 3.6 - 5.0 g/dL PHOSPHORUS 4.5 2.3 - 4.8 mg/dL EGFR 7 (L) >60 mL/min/1.73m2 CBC W/Auto Diff (Reflex to Manual) Collection Time: 09/12/16 7:22 AM Result Value Ref Range WBC 11.82 (H) 3.80 - 11.00 K/uL RBC 2.92 (L) 4.20 - 5.70 M/uL HGB 8.9 (L) 13.2 - 17.0 g/dL HCT 26.2 (L) 39.0 - 50.0 % MCV 89.5 80.0 - 100.0 fl MCH 30.6 27.0 - 34.0 pg MCHC 34.1 32.0 - 35.5 g/dL RDW SD 51.2 37 - 53 fl PLT 255 150 - 400 K/uL MPV 6.5 fl DIFF TYPE AUTOMATED NEUTROPHILS 82.52 % LYMPHOCYTES 3.94 % MONOCYTES 10.34 % EOSINOPHILS 2.63 % BASOPHILS 0.57 % NEUTROPHILS ABS 9.75 (H) 1.90 - 7.40 K/uL LYMPHOCYTES ABS 0.47 (L) 1.00 - 3.90 K/uL MONOCYTES ABS 1.22 (H) 0.00 - 0.80 K/uL EOSINOPHILS ABS 0.31 0.00 - 0.50 K/uL BASOPHILS ABS 0.07 0.00 - 0.10 K/uL Magnesium Collection Time: 09/12/16 7:22 AM Result Value Ref Range MAGNESIUM 2.2 1.7 - 2.4 mg/dL MEDICATIONS allopurinol 100 mg Oral Daily amLODIPine 10 mg Oral Daily aspirin 81 mg Oral Daily with breakfast budesonide-formoterol 2 puff Inhalation 2 times daily carvedilol 3.125 mg Oral BID WC cholecalciferol 2,000 Units Oral Daily guaiFENesin 600 mg Oral BID ipratropium-albuterol 3 mL Nebulization Q6H levothyroxine 75 mcg Oral QAM AC lidocaine 10 mL Intradermal Once montelukast 10 mg Oral Nightly sevelamer 2,400 mg Oral TID WC sodium bicarbonate 1,300 mg Oral BID sodium chloride 10 mL Intravenous Q8H sodium chloride 10 mL Intravenous 2 times per day sodium citrate anticoagulant 4 % 6 mL Intracatheter Once per day on Sat torsemide 50 mg Oral Daily vitamin B egryorj-T-expda acid 1 tablet Oral Daily PRN: acetaminophen OR acetaminophen, albumin human, diphenhydrAMINE, HYDROmorphone OR HY DROmorphone, ondansetron OR ondansetron, polyethylene glycol, sodium chloride, sodium ch loride, sodium chloride Douglas Barrow MD PGY1 09/12/2016 12:17 PM I Michael Strange DO, have reviewed this note. Cosmo Lang MD - 09/11/2016 4:16 PM PDT Progress Notes by Cosmo Soria MD at 09/11/16 8131 Author: Cosmo Soria MD Service: Nephrology Author Type: Physician Filed: 09/11/16 4537 Date of Service: 09/11/161615 Status: Signed Pearl Glue Drier: Cosmo Soria MD (Physician) [id number] LOS: 4 days Carol Potter is a 51 y.o. man whose PCP is Dr. ANDRY LOFTON. He is known to have ESRD as per PMH> He had been having issues with his right UE AVF since at last few weeks. He apparently had infiltration and did not complete his dialysis Saturday and did not go for dialysis Saturday as his arm was quite painful. He was supposed to follow up with Dr. Malin after initial evaluation 08/27/16 but did not show up for follow up. He had a Us Hemodialysis Access Fistula 08/27/2016 which Showed Velocity elevations through t he graft, up to 638 cm/s at the anastomosis. Fistula was widely patent. He presented to ED and was found to have hyperkalemia and urgent Nephrology consultation wa s requested by Dr. Mejia for urgent dialysis given missed dialysis and hyperkalemia with EKG changes. He indicated feeling OK without any nausea, vomiting, chest pain, shortness of breath, leg swelling. He indicated having had some urine output today. Dr. Meyer was apparently contacted by Dr. Mejia and plan was possible declotting. ICU was contacted and plan is to place a temporary dialysis catheter (no ICU beds available ). 09/08/2016 He had been complaining of cramping right hand. He was seen by Dr. Meyer and plan was for fis tulogram. 09/09/2016 s/p fistulogram and right LE tunneled CVC placement with Dr. Meyer which showed Right brachiobasilic fistula was widely patent without significant stenosis. Right subcla vian vein was occluded just proximal to junction with cephalic vein. Attempted crossing an d angioplasty but right innominate vein was also occluded. Left arm venogram done which sh ows occlusion of left subclavian vein near origin with no filling easily seen in left innomi nicanor vein. Appears to have SVC occlusion. Therefore, right groin tunneled catheter place d with tip in IVC. Will need CT venogram of chest to better evaluate central veins. Complications: Inability to cross central occlusions. Ct Chest With Iv Contrast 09/09/2016 resulted in IV infiltration at the injection site. 2. Superior vena cava was not expanded. Plan was to repeat when a new IV has been placed. 3. R ight axillary and mediastinal adenopathy. Nonspecific groundglass opacities within the left upper lobe, may represent acute inflammation or infection. 09/10/2016 Uncomplicated HD. 09/11/2016 He feels OK but is troubled by right leg pain from catheter site. He is unable to maintain appropriate hygiene and apparently the dressing fell off and had t o be replaced by television news producer. He has been wheezing which is improved and denied fever, chills, chest pain, cough. PMH, PSH, Social history, medications, allergies, labs and imaging reviewed as appropriate. Previous history summarized as above. Prior lab data and imaging reviewed. Old records and labs were reviewed and summarized as above. Significant medical/surgical history: ESRD secondary to Biopsy-proven Diabetic nephropathy. He is dialyzed Saturday an d Saturday at [place] dialysis unit using right UE AVF (Dr. Meyer). He used to have left upper extremity brachio cephalic fistula which clotted off 10/2013. Right upper extremity brachioc ephalic fistula by Dr. Meyer 02/04 DM2 Secondary hyperparathyroidism Anemia of chronic renal failure Endocarditis Remote smoker with 23 pack year smoking history (quit 2010) Possible COPD HFREF with RONY from 2012 showing EF of 40 to 45%. Family/social history: There is no family history of kidney disease with close family baileybe rs being on dialysis at early age. 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 There is remote history of Etoh/recreational drug use. He has no biological children. Father had colon cancer, heart disease. Mother . ROS: Review of systems is as per the history of present illness. Otherwise 14 organ system revie w of systems was done and is negative. Examination: Constitutional: Alert awake and oriented sitting up in bed with wheeze. No asterixis. HEENT: No JVD, non icteric sclera. Cardiovascular: S1soft. No friction rub. No S3. No murmur. LUNGS: Effort fair. Scattered rales at bases. Abdominal: Soft. No distension and no mass. There is no rebound tenderness and no guarding. EXT: B/L LE with chronic venous changes. distal lower extremity pulses not palpable Neurological: Alert, awake, oriented. No asterixis. Normal sensorium. Speech fluent. Gait n ot tested. Moves all 4 extremities equally. Skin: Skin is warm and dry. Chronic skin thickening right AVF. Hemodialysis access: Left upper extremity brachiocephalic fistula, clotted Right UE brachiocephalic AVF with bruit and infiltration. Right LE tunneled CVC Vital Signs: BP 161/82 mmHg | Pulse 75 | Temp(Src) 98.5 F (36.9 C) (Oral) | Resp 12 | Ht 1.702 m (5' 7") | Wt 83.054 kg (183 lb 1.6 oz) | BMI 28.67 kg/m2 | SpO2 100% Data evaluation: Lab Results Component Value Date BUN 40* 09/11/2016 CREATININE 6.4* 09/11/2016 EGFR 10* 09/11/2016 NA 132* 09/11/2016 K 4.5 09/11/2016 CL 95* 09/11/2016 CO2 28 09/11/2016 CA 7.3* 09/11/2016 PHOS 3.5 09/11/2016 MG 2.3 09/11/2016 ALB 2.9* 09/11/2016 HGB 9.6* 09/11/2016 Ct Chest With Iv Contrast 09/10/2016 showed occlusion of the RIGHT subclavian vein just prox imal to the RIGHT 1st rib, probably due to thrombosis. 2. Severe narrowing of the LEFT subc lavian vein as it passes over the LEFT 1st rib. 3. Apparent fibrotic stenosis of the distal aspect of the superior vena cava as it enters the RIGHT atrium. 4. Moderate RIGHT axillary lymphadenopathy, probably reactive. 5. Diffuse subcutaneous edema throughout the RIGHT ant erior chest wall and the lateral chest wall. 6. Moderately large subcutaneous collateral ve nous blood flow in the upper anterior RIGHT chest, suggesting chronic stenosis or occlusion of the RIGHT subclavian vein. Assessment and Recommendations: ESRD on HD Mild hyponatremia SVC stenosis Clotted AVF Anemia of chronic renal failure HTN HFREF COPD Hyperkalemia has resolved. BP is reasonably controlled but labile with target BP of 130 to 150 mmHg on non dialysis da ys/pre dialysis. This is likely from dietary indiscretion. He is clinically minimally hypervolemic. Wheezing represents likely bronchospasm and not h ypervolemia. Anemia is moderate. Dr. Meyer and I had a long discussion regarding his plan of care. Plan for Dr. Garnica to evaluate to see if SVC stenosis can be bypassed and UE Access can b e obtained as he has high risk of infection with right LE access. Dialyze MWF using tunneled CVC Continue current medications. Use Beta agonist/anticholinergic for bronchospasm. He does have a 23 pack year smoking h istory and possibly has COPD. I discussed with him and his the concept of clotted AVF/SVC syndrome 2 gm Na, 1 gm K, 1 gm PO4, 1 gm/kg protein diet. Please dose all medications for an eGFR of less than 15 ml/min/1.73 m2. No IV contrast studies. No NSAIDS/ADAM 2 inhibitors, Aluminum/magnesium containing antacids, magnesium/phosphate con taining enemas. Fluid restriction 1.5 L in 24 hour period. Strict I/O Daily CMP (including Mg, PO4). Plan of care was discussed with Dr. Annika SORIA MD 09/11/2016 Portions of my previous notes have been carried over for continuity of care. He was seen earlier in the day and charting was completed later after rounds. Dictation software, Metaforic, was used which may contain error for similar sounding words. Pe rsonal communication is requested for any clarification. Prognosis guarded in view of multiple comorbid illnesses and ESRD allopurinol 100 mg Oral Daily amLODIPine 10 mg Oral Daily aspirin 81 mg Oral Daily with breakfast budesonide-formoterol 2 puff Inhalation 2 times daily carvedilol 3.125 mg Oral BID WC cholecalciferol 2,000 Units Oral Daily fentaNYL fentaNYL heparin (porcine) ipratropium-albuterol 3 mL Nebulization Q6H levothyroxine 75 mcg Oral QAM AC lidocaine 10 mL Intradermal Once midazolam midazolam montelukast 10 mg Oral Nightly sevelamer 2,400 mg Oral TID WC sodium bicarbonate buffer sodium bicarbonate 1,300 mg Oral BID sodium chloride 10 mL Intravenous Q8H sodium chloride 10 mL Intravenous 2 times per day torsemide 50 mg Oral Daily vitamin B xxowoar-G-gmmtt acid 1 tablet Oral Daily onversion Transactio n, Provider Unknown - 09/11/2016 2:43 PM PDT Case Management by Deidre Westfall RN at 09/11/16 1443 Author: Deidre Westfall RN Service: (none) Author Type: Registered Nurse Filed: 09/11/16 2587 Date of Service: 09/11/16 1443 Status: Addendum Pearl Glue Drier: Deidre Westfall RN (Registered Nurse) Related Notes: Original Note by Deidre Westfall RN (Registered Nurse) filed at 09/11/16 144 6 Met with pt and spouse Shyanne re d/c planning. Pt states he would like a FWW. Will obtain az ript and fax to [employer]. Shyanne asking about a phone card and meal vouchers. Shyanne states she already used up the Aubrey ne card calling her kids in [place]. Informed Shyanne not sure how many phone cards they can get during stay, but stated family in [place] can call in to pt's room. Informed Shyanne coles gets 1 meal voucher/day, she already used up todays. Shyanne states she will be driving pt home at d/c. Mitzi onver quique Transaction, Provider Unknown - 09/11/2016 12:10 PM PDT Nurse Progress Note by Sharon Chapman RN at 09/11/16 1210 Author: Sharon Chapman RN Service: Nephrology Author Type: Registered Nurse Filed: 09/11/16 1238 Date of Service: 09/11/16 1210 Status: Signed Pearl Glue Drier: Sharon Chapman RN (Registered Nurse) Contacted by primary RN Amber due to HD cath dressing fell off when pt ambulated to bathroom . Cleansed with chlorhexidine and placed new biopatch at the exit site. Covered with 2x2 a nd dressed with tegaderm. Secured with silk tape on top of tegaderm. Advise pt to get help before getting out of the bed. Reported to primary RN onver quique Transaction, Provider Unknown - 09/11/2016 12:02 PM PDT Progress Notes by Amber Freitas RN at 09/11/16 1202 Author: Amber Freitas RN Service: (none) Author Type: Registered Nurse Filed: 09/11/16 192 Date of Service: 09/11/16 1202 Status: Addendum Pearl Glue Drier: Amber Freitas RN (Registered Nurse) Related Notes: Original Note by Amber Freitas RN (Registered Nurse) filed at 09/11/16 181 Dressing removed on accident by patient when ambulating to bathroom, RN dressed with gauze and tegaderm, mold tooling technician contacted and will be to floor to inspect, clean and re-dress, pt complaining of increased pain to R arm where AVF is located, arm is swollen and warm to touc h, does not appear to have changed from previous assessment MD kavita Freitas RN alDouglas givens - 09/11/2016 6:35 AM PDTFormatting of this note might be different from the betina dasia. Progress Notes by Douglas Barrow MD-R1 at 09/11/16 0635 Author: Douglas Barrow MD-R1 Service: Hospitalist Author Type: Resident-Y1 Filed: 09/11/16 1405 Date of Service: 09/11/16 0635 Status: Attested Pearl Glue Drier: Douglas Barrow MD-R1 (Resident-Y1) Cosigner: Simone Roblero MD at 09/12/16 1 309 Attestation signed by Smione Robelro MD at 09/12/16 1309 I have seen and examined the patient and agree with residents note IR to attempt to recanul ate the subclavian PROGRESS NOTE 09/11/2016 for Carol Potter on the hospitalist service. ASSESSMENT & PLAN Hyperkalemia His potassium has now normalized with appropriate HD. - HD MWF - Appreciate Nephrology recommendations. 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 There was concern that he had central occlusion of the SVC. The CT venogram demonstrated a patent SVC. IR will atte mpt to bypass the right subclavian clot with a catheter for continued dialysis access. - IR procedure ESRD Patient has ESRD likely 2/2 to DMII. He is under the care of nephrology and receives HD MWF . He missed his most recent appointment as his AV fistula was non-functional. He was found t o be severely hyperkalemic with ECG changes and was thus admitted for emergent HD. Nephrolog y is on board. We will continue to follow their recommendations. We will continue HD via the femoral venous catheter - Continue HD MWF - Appreciate Nephrology recommendations DMII Blood sugar has been well controlled, will continue to monitor. Hypothyroidism Continue levothyroxine, note from 09/10 was mistyped and stated Levaquin, the patient is no t on Levaquin. Asthma Continue monteleukast, cont symbicort, cont duoneb PRN Problem list: Principal Problem: Acute hyperkalemia Active Problems: Secondary renal hyperparathyroidism (HCC) 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) ESRD (end stage renal disease) on dialysis (HCC) Anemia of chronic kidney failure Dialysis AV fistula malfunction (HCC) Hyponatremia Chronic systolic heart failure (HCC) Length of stay: 4 days DVT prophylaxis: Heparin Code status: Full Disposition: Inpatient PATIENT SUMMARY This is a 51 y/o male with a h/o ESRD requiring HD, DM II, and hypothyroidism who presented to [facility] with hyperkalemia 2/2 missing dialysis appointments as his AVF was not functioning. SUBJECTIVE Patient was asleep this AM. He said he was doing well. He had no CP, no SOB, was otherwise okay. OBJECTIVE Temp: [98.4 F (36.9 C)-100 F (37.8 C)] 98.5 F (36.9 C) (09/11 1241) BP: (106-158)/(57-86) 131/86 mmHg (09/11 1241) Heart Rate: [79-92] 79 (09/11 1241) Resp: [18-189] 189 (09/11 1241) SpO2: [93 %-98 %] 96 % (09/11 1241) Weight: [83.054 kg (183 lb 1.6 oz)] 83.054 kg (183 lb 1.6 oz) (09/10 2146) Physical Exam Constitutional: He is oriented to person, place, and time. Patient was sleeping in bed, he appeared comfortable, he was difficult to arouse, but was c ooperative once awoken HENT: Head: Normocephalic and atraumatic. Mouth/Throat: No oropharyngeal exudate. Very poor dentition, most noted in his front teeth Neck: No tracheal deviation present. Cardiovascular: Normal rate, regular rhythm and normal heart sounds. Femoral CVC was present and the dressing was CDI Pulmonary/Chest: Effort normal. No stridor. No respiratory distress. Diffuse, mild, wheezes Abdomina/Gl: Soft. He exhibits no distension. Neurological: He is alert and oriented to person, place, and time. Psychiatric: He has a normal mood and affect. Nursing note and vitals reviewed. Recent Results (from the past 24 hour(s)) Comprehensive metabolic panel Collection Time: 09/11/16 6:27 AM Result Value Ref Range SODIUM 132 (L) 135 - 145 mmol/L POTASSIUM 4.5 3.5 - 4.9 mmol/L CHLORIDE 95 (L) 99 - 109 mmol/L CO2 28 23 - 32 mmol/L ANION GAP AGAP 14 5 - 20 mmol/L GLUCOSE 100 (H) 65 - 99 mg/dL BUN 40 (H) 8 - 25 mg/dL CREATININE 6.4 (H) 0.70 - 1.30 mg/dL BUN/CREAT 6 CALCIUM 7.3 (L) 8.5 - 10.5 mg/dL TOTAL PROTEIN 6.8 6.3 - 8.2 g/dL Albumin 2.9 (L) 3.6 - 5.0 g/dL GLOBULIN 3.9 1.3 - 4.9 g/dL A/G 0.8 (L) 1.0 - 2.4 TBIL 0.5 0.1 - 1.5 mg/dL ALK PHOS 82 35 - 115 U/L AST 14 10 - 45 U/L ALT 17 10 - 65 U/L EGFR 10 (L) >60 mL/min/1.73m2 CBC W/Auto Diff (Reflex to Manual) Collection Time: 09/11/16 6:27 AM Result Value Ref Range WBC 9.65 3.80 - 11.00 K/uL RBC 3.18 (L) 4.20 - 5.70 M/uL HGB 9.6 (L) 13.2 - 17.0 g/dL HCT 28.2 (L) 39.0 - 50.0 % MCV 88.8 80.0 - 100.0 fl MCH 30.2 27.0 - 34.0 pg MCHC 34.0 32.0 - 35.5 g/dL RDW SD 52.9 37 - 53 fl PLT 239 150 - 400 K/uL MPV 6.1 fl DIFF TYPE AUTOMATED NEUTROPHILS 71.63 % LYMPHOCYTES 9.51 % MONOCYTES 10.36 % EOSINOPHILS 7.66 % BASOPHILS 0.84 % NEUTROPHILS ABS 6.92 1.90 - 7.40 K/uL LYMPHOCYTES ABS 0.92 (L) 1.00 - 3.90 K/uL MONOCYTES ABS 1.00 (H) 0.00 - 0.80 K/uL EOSINOPHILS ABS 0.74 (H) 0.00 - 0.50 K/uL BASOPHILS ABS 0.08 0.00 - 0.10 K/uL Magnesium Collection Time: 09/11/16 6:27 AM Result Value Ref Range MAGNESIUM 2.3 1.7 - 2.4 mg/dL Phosphorus Collection Time: 09/11/16 6:27 AM Result Value Ref Range PHOSPHORUS 3.5 2.3 - 4.8 mg/dL Echo cardiac adult complete Collection Time: 09/11/16 9:35 AM Result Value Ref Range LV EF 60 50 - 70 % MEDICATIONS allopurinol 100 mg Oral Daily amLODIPine 10 mg Oral Daily aspirin 81 mg Oral Daily with breakfast budesonide-formoterol 2 puff Inhalation 2 times daily carvedilol 3.125 mg Oral BID WC cholecalciferol 2,000 Units Oral Daily ipratropium-albuterol 3 mL Nebulization Q6H levothyroxine 75 mcg Oral QAM AC lidocaine 10 mL Intradermal Once montelukast 10 mg Oral Nightly sevelamer 2,400 mg Oral TID WC sodium bicarbonate 1,300 mg Oral BID sodium chloride 10 mL Intravenous Q8H sodium chloride 10 mL Intravenous 2 times per day torsemide 50 mg Oral Daily vitamin B capxujo-M-kyfbs acid 1 tablet Oral Daily PRN: acetaminophen OR acetaminophen, albumin human, diphenhydrAMINE, HYDROmorphone OR HY DROmorphone, ondansetron OR ondansetron, polyethylene glycol, sodium chloride, sodium ch loride, sodium chloride Douglas Barrow MD PGY1 09/11/2016 2:05 PM I Michael Johansing, DO, have reviewed this note. onversion Transac tion, Provider Unknown - 09/11/2016 6:20 AM PDTFormatting of this note might be different f rom the original. Nurse Progress Note by Carmina Lepe RN at 09/11/16619 Author: Carmina Lepe RN Service: (none) Author Type: Registered Nurse Filed: 09/11/16620 Date of Service: 09/11/16619 Status: Signed Pearl Glue Drier: Carmina Lepe RN (Registered Nurse) Pt VS stable throughout the shift. No acute changes noted. Pt NPO at midnight. Will continu e to monitor. Carmina Lepe RN onver quique Transaction, Provider Unknown - 09/10/2016 6:09 PM PDT Progress Notes by Camilo Samson RN at 09/10/161808 Author: Camilo Samson RN Service: (none) Author Type: Registered Nurse Filed: 09/10/161809 Date of Service: 09/10/161808 Status: Signed Pearl Glue Drier: Camilo Samson RN (Registered Nurse) No acute changes. Camilo Samson RN Onelia Cuello ae, MD - 09/10/2016 4:56 PM PDTFormatting of this note might be different from the origin al. Progress Notes by Oskar Meyer MD at 09/10/161655 Author: Oskar Meyer MD Service: Vascular Surgery Author Type: Physician Filed: 09/10/161658 Date of Service: 09/10/161655 Status: Addendum Pearl Glue Drier: sOkar Meyer MD (Physician) Related Notes: Original Note by Oskar Meyer MD (Physician) filed at 09/10/161657 [facility] Service: Vascular Surgery Progress Note S/p right arm fistulagram revealing occluded right subclavian vein. CT of chest did reveal that SVC is open. Discussed case with Dr. Garnica and he will attempt crossing of occluded ri ght subclavian vein vs recanalization of right internal jugular vein tomorrow. May need new access on left upper extremity if recanalization unsuccessful with angioplasty of left subc lavian vein. Will continue to follow. Oskar Meyer MD 09/10/2016 onversion Transaction Nik stephender Unknown - 09/10/2016 3:28 PM PDT Progress Notes by Mary Loja CMA at 09/10/16 1528 Author: Mary Loja CMA Service: (none) Author Type: Wharf Builder Filed: 09/10/16 1542 Date of Service: 09/10/16 1528 Status: Signed Pearl Glue Drier: Mary Loja CMA (Wharf Builder) GPS- Patient enrolled and appt scheduled with PCP on 09/18 alvor Douglas sifuentes - 09/10/2016 1:12 PM PDTFormatting of this note might be different from the betina givivian. Progress Notes by Douglas Barrow MD-R1 at 09/10/16 1312 Author: Douglas Barrow MD-R1 Service: Hospitalist Author Type: Resident-Y1 Filed: 09/10/16 1325 Date of Service: 09/10/16 1312 Status: Attested Pearl Glue Drier: Douglas Barrow MD-R1 (Resident-Y1) Cosigner: Simone Roblero MD at 09/10/16 1 347 Attestation signed by Simone Roblero MD at 09/10/16 0008 I have seen and examined the patient and agree with residents note. Plan is to pursue CT ch est venogram again today. PROGRESS NOTE 09/10/2016 for Carol Potter on the hospitalist service. ASSESSMENT & PLAN Hyperkalemia Patient has not had labs for approximately two days, so his potassium status is unknown. He was receiving HD as of this AM. We will recheck his labs after HD. His hyperkalemia was due to missed hemodialysis which was a result from what was thought to be graft thrombosis. How ever on fistulogram, the fistula is patent but there is a proximal occlusion of the RIght deal bclavian vein. - HD MWF - Appreciate Nephrology recommendations. 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 There is concern that h e has central occlusion of the SVC. We will obtain a CT Venogram of the chest to assess for patency. We may need to develop another plan for HD access. Currently, he has HD catheter in the R femoral vein. - CT Venogram ESRD Patient has ESRD likely 2/2 to DMII. He is under the care of nephrology and receives HD MWF . He missed his most recent appointment as his AV fistula was non-functional. He was found t o be severely hyperkalemic with ECG changes and was thus admitted for emergent HD. Nephrolog y is on board. We will continue to follow their recommendations. - Continue HD MWF - Appreciate Nephrology recommendations DMII Blood sugar has been well controlled, will continue to monitor. Hypothyroidism Continue levaquin Asthma Continue monteleukast, cont symbicort, cont duoneb PRN Problem list: Principal Problem: Acute hyperkalemia Active Problems: Secondary renal hyperparathyroidism (HCC) 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) ESRD (end stage renal disease) on dialysis (HCC) Anemia of chronic kidney failure Dialysis AV fistula malfunction (HCC) Hyponatremia Chronic systolic heart failure (HCC) Length of stay: 3 days DVT prophylaxis: Heparin Code status: Full Disposition: Inpatient PATIENT SUMMARY This is a 51 y/o male with a h/o ESRD requiring HD, DM II, and hypothyroidism who presented to [facility] with hyperkalemia 2/2 missing dialysis appointments as his AVF was not functioning. SUBJECTIVE Patient was receiving dialysis this AM. He was doing well. He had no complaints. He had no SOB, no CP. OBJECTIVE Temp: [98.3 F (36.8 C)-99.1 F (37.3 C)] 99.1 F (37.3 C) (09/10 1130) BP: (103-178)/(53-77) 146/64 mmHg (09/10 1130) Heart Rate: [80-92] 89 (09/10 1130) Resp: [18-20] 18 (09/10 1130) SpO2: [94 %-100 %] 95 % (09/10 1130) Weight: [82.1 kg (181 lb)-86 kg (189 lb 9.5 oz)] 82.1 kg (181 lb) (09/10 1125) Physical Exam Constitutional: He is oriented to person, place, and time. Patient was sleeping in bed, he appeared comfortable, he had his glasses on, he has noted c entral obesity, though mild, a HD catheter was present in the left femoral vein, his wa s sleeping on the sofa HENT: Head: Normocephalic and atraumatic. Mouth/Throat: No oropharyngeal exudate. Very poor dentition, most noted in his front teeth Neck: No tracheal deviation present. Cardiovascular: Normal rate, regular rhythm and normal heart sounds. Pulmonary/Chest: Effort normal. No stridor. No respiratory distress. Diffuse, mild, wheezes Abdomina/Gl: Soft. He exhibits no distension. Neurological: He is alert and oriented to person, place, and time. Psychiatric: He has a normal mood and affect. Nursing note and vitals reviewed. No results found for this or any previous visit (from the past 24 hour(s)). MEDICATIONS allopurinol 100 mg Oral Daily amLODIPine 10 mg Oral Daily aspirin 81 mg Oral Daily with breakfast budesonide-formoterol 2 puff Inhalation 2 times daily carvedilol 3.125 mg Oral BID WC cholecalciferol 2,000 Units Oral Daily ipratropium-albuterol 3 mL Nebulization Q6H levothyroxine 75 mcg Oral QAM AC montelukast 10 mg Oral Nightly sevelamer 2,400 mg Oral TID WC sodium bicarbonate 1,300 mg Oral BID sodium chloride 10 mL Intravenous Q8H sodium chloride 10 mL Intravenous 2 times per day torsemide 50 mg Oral Daily vitamin B fhgqrut-Z-bgmdx acid 1 tablet Oral Daily PRN: acetaminophen OR acetaminophen, albumin human, diphenhydrAMINE, HYDROmorphone OR HY DROmorphone, ondansetron OR ondansetron, polyethylene glycol, sodium chloride, sodium ch loride 0.9 %, sodium chloride Douglas Barrow MD PGY1 09/10/2016 1:12 PM I Michael Strange DO, have reviewed this note. onversion Transac tion, Provider Unknown - 09/10/2016 12:37 PM PDTFormatting of this note might be different f rom the original. Nurse Progress Note by Sharon Chapman RN at 09/10/16 1237 Author: Sharon Chapman RN Service: Nephrology Author Type: Registered Nurse Filed: 09/10/16 1241 Date of Service: 09/10/16 1237 Status: Signed Pearl Glue Drier: Sharon Chapman RN (Registered Nurse) @1157 Accompanied pt down to CT per Dr Soria's order for HD ports to be use by CT dept. F lushed ports only with NS. Per CT dept will not need HD cath ports and will use L IV access for IV contrast. Dr Soria informed and aware onver quique Transaction, Provider Unknown - 09/10/2016 12:30 PM PDT Nurse Progress Note by Sharon Chapman RN at 09/10/16 1230 Author: Sharon Chapman RN Service: Nephrology Author Type: Registered Nurse Filed: 09/10/16 1247 Date of Service: 09/10/16 1230 Status: Signed Pearl Glue Drier: Sharon Chapman RN (Registered Nurse) @1230 Lock HD ports with heparin 1000units/ml after pt returned from CT. Art-2.2ml/Seth 2.3 ml +0.1 ml overfill then clamped and capped Cosmo Lang MD - 09/10/2016 11:14 AM PDTFormatting of this note might be different from the or iginal. Progress Notes by Cosmo Soria MD at 09/10/16 1114 Author: Cosmo Soria MD Service: Nephrology Author Type: Physician Filed: 09/10/16 1121 Date of Service: 09/10/16 1114 Status: Signed Pearl Glue Drier: Cosmo Soria MD (Physician) 7106/7106-1 LOS: 3 days Carol Potter is a 51 y.o. man whose PCP is Dr. ANDRY LOFTON. He is known to have ESRD as per PMH> He had been having issues with his right UE AVF since at last few weeks. He apparently had infiltration and did not complete his dialysis Saturday and did not go for dialysis Saturday as his arm was quite painful. He was supposed to follow up with Dr. Malin after initial evaluation 08/27/16 but did not show up for follow up. He had a Us Hemodialysis Access Fistula 08/27/2016 which Showed Velocity elevations through t he graft, up to 638 cm/s at the anastomosis. Fistula was widely patent. He presented to ED and was found to have hyperkalemia and urgent Nephrology consultation wa s requested by Dr. Mejia for urgent dialysis given missed dialysis and hyperkalemia with EKG changes. He indicated feeling OK without any nausea, vomiting, chest pain, shortness of breath, leg swelling. He indicated having had some urine output today. Dr. Meyer was apparently contacted by Dr. Mejia and plan was possible declotting. ICU was contacted and plan is to place a temporary dialysis catheter (no ICU beds available ). 09/08/2016 He had been complaining of cramping right hand. He was seen by Dr. Meyer and plan was for fis tulogram. 09/09/2016 s/p fistulogram and right LE tunneled CVC placement with Dr. Meyer which showed Right brachiobasilic fistula was widely patent without significant stenosis. Right subcla vian vein was occluded just proximal to junction with cephalic vein. Attempted crossing an d angioplasty but right innominate vein was also occluded. Left arm venogram done which sh ows occlusion of left subclavian vein near origin with no filling easily seen in left innomi nicanor vein. Appears to have SVC occlusion. Therefore, right groin tunneled catheter place d with tip in IVC. Will need CT venogram of chest to better evaluate central veins. Complications: Inability to cross central occlusions. Ct Chest With Iv Contrast 09/09/2016 resulted in IV infiltration at the injection site. 2. Superior vena cava was not expanded. Plan was to repeat when a new IV has been placed. 3. R ight axillary and mediastinal adenopathy. Nonspecific groundglass opacities within the left upper lobe, may represent acute inflammation or infection. 09/10/2016 He is seen with his "Shyanne". He is seen on HD with RN "Sharon". No complications during HD identified. He has been wheezing but denied fever, chills, chest pain, cough. PMH, PSH, Social history, medications, allergies, labs and imaging reviewed as appropriate. Previous history summarized as above. Prior lab data and imaging reviewed. Old records and labs were reviewed and summarized as above. Significant medical/surgical history: ESRD secondary to Biopsy-proven Diabetic nephropathy. He is dialyzed Saturday an saturday at [place] dialysis unit using right UE AVF (Dr. Meyer). He used to have left upper extremity brachio cephalic fistula which clotted off 10/2013. Right upper extremity brachioc ephalic fistula by Dr. Meyer 02/04 DM2 Secondary hyperparathyroidism Anemia of chronic renal failure Endocarditis Remote smoker with 23 pack year smoking history (quit 2010) Possible COPD HFREF with RONY from 2012 showing EF of 40 to 45%. Family/social history: There is no family history of kidney disease with close family elier rs being on dialysis at early age. 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 There is remote history of Etoh/recreational drug use. He has no biological children. Father had colon cancer, heart disease. Mother . ROS: Review of systems is as per the history of present illness. Otherwise 14 organ system revie w of systems was done and is negative. Examination: Constitutional: Alert awake and oriented sitting up in bed with audible wheeze. No asterixi s. HEENT: No JVD, non icteric sclera. Cardiovascular: S1soft. No friction rub. No S3. No murmur. LUNGS: Effort fair. Scattered rales at bases. Abdominal: Soft. No distension and no mass. There is no rebound tenderness and no guarding. EXT: B/L LE with chronic venous changes. distal lower extremity pulses not palpable Neurological: Alert, awake, oriented. No asterixis. Normal sensorium. Speech fluent. Gait n ot tested. Moves all 4 extremities equally. Skin: Skin is warm and dry. Chronic skin thickening right AVF. Hemodialysis access: Left upper extremity brachiocephalic fistula, clotted Right UE brachiocephalic AVF with bruit and infiltration. Right LE tunneled CVC Vital Signs: BP 119/58 mmHg | Pulse 91 | Temp(Src) 98.3 F (36.8 C) (Oral) | Resp 18 | Ht 1.702 m (5' 7") | Wt 86 kg (189 lb 9.5 oz) | BMI 29.69 kg/m2 | SpO2 95% Data evaluation: Lab Results Component Value Date BUN 41* 09/08/2016 CREATININE 5.5* 09/08/2016 EGFR 12* 09/08/2016 NA 135 09/08/2016 K 4.4 09/08/2016 CL 98* 09/08/2016 CO2 22* 09/08/2016 CA 8.5 09/08/2016 PHOS 4.9* 09/08/2016 MG 2.4 09/08/2016 ALB 3.5* 09/08/2016 HGB 10.4* 09/08/2016 Lab Results Component Value Date K 4.4 09/08/2016 K 6.9* 09/07/2016 K 4.7 04/30/2016 Assessment and Recommendations: ESRD on HD Clotted AVF Anemia of chronic renal failure HTN HFREF COPD Hyperkalemia has resolved. BP is reasonably controlled but labile with target BP of 130 to 150 mmHg on non dialysis da ys/pre dialysis. This is likely from dietary indiscretion. He is clinically minimally hypervolemic. Wheezing represents likely bronchospasm and not h ypervolemia. Anemia is moderate. Dr. Meyer and I had a long discussion regarding his plan of care. Plan for dialysis using rig ht tunneled CVC for now and work up for CVC stenosis. If he indeed does have SVC stenosis th en LE graft/AVF could be considered. Plan for repeat CT chest using CVC (with HD RN managing connection and disconnection dur ing CT to prevent any contamination of HD access). Dialyze MWF using tunneled CVC Continue current medications. Use Beta agonist/anticholinergic for bronchospasm. He does have a 23 pack year smoking h istory and possibly has COPD. Check Echo. I discussed with him and his the concept of clotted AVF/SVC syndrome 2 gm Na, 1 gm K, 1 gm PO4, 1 gm/kg protein diet. Please dose all medications for an eGFR of less than 15 ml/min/1.73 m2. No IV contrast studies. No NSAIDS/ADAM 2 inhibitors, Aluminum/magnesium containing antacids, magnesium/phosphate con taining enemas. Fluid restriction 1.5 L in 24 hour period. Strict I/O Daily CMP (including Mg, PO4). Plan of care was discussed with Dr. Roblero Total time: 36 min More than 50% coordination of care and In counseling regarding clotted AVF/SVC syndrome. (time spent in explanation of diagnosis, prognosis, treatment plan and options of treatment ) COSMO SORIA MD 09/10/2016 Portions of my previous notes have been carried over for continuity of care. He was seen earlier in the day and charting was completed later after rounds. Dictation software, Metaforic, was used which may contain error for similar sounding words. Pe rsonal communication is requested for any clarification. Prognosis guarded in view of multiple comorbid illnesses and ESRD allopurinol 100 mg Oral Daily amLODIPine 10 mg Oral Daily aspirin 81 mg Oral Daily with breakfast budesonide-formoterol 2 puff Inhalation 2 times daily carvedilol 3.125 mg Oral BID WC cholecalciferol 2,000 Units Oral Daily heparin (porcine) 4,700 Units Intracatheter Once in dialysis ipratropium-albuterol 3 mL Nebulization Q6H levothyroxine 75 mcg Oral QAM AC montelukast 10 mg Oral Nightly sevelamer 2,400 mg Oral TID WC sodium bicarbonate 1,300 mg Oral BID sodium chloride 10 mL Intravenous Q8H sodium chloride 10 mL Intravenous 2 times per day torsemide 50 mg Oral Daily vitamin B heiwpfa-V-lgmzb acid 1 tablet Oral Daily onversion Transactio n, Provider Unknown - 09/10/2016 9:51 AM PDT Nurse Progress Note by Yahaira Roth RN at 09/10/16950 Author: Yahaira Roth RN Service: (none) Author Type: Registered Nurse Filed: 09/10/16 0954 Date of Service: 09/10/16950 Status: Signed Pearl Glue Drier: Yahaira Roth RN (Registered Nurse) Spoke to Dr Soria about picc placement. Pt has occlusion throughout lakhwinder upper ext, lakhwinder sub clavian, and in svc. Md to consult Dr Meyer and Dr Roblero. Primary Rn notified. Order cancell ed. onver quique Transaction, Provider Unknown - 09/10/2016 8:20 AM PDT Progress Notes by Camilo Samson RN at 09/10/16819 Author: Camilo Samson RN Service: (none) Author Type: Registered Nurse Filed: 09/10/16820 Date of Service: 09/10/16819 Status: Signed Pearl Glue Drier: Camilo Samson RN (Registered Nurse) AM meds held until dialysis complete. Camilo Samson RN onver quique Transaction, Provider Unknown - 09/10/2016 4:13 AM PDT Nurse Progress Note by Carmina Lepe RN at 09/10/16412 Author: Carmina Lepe RN Service: (none) Author Type: Registered Nurse Filed: 09/10/16417 Date of Service: 09/10/16412 Status: Signed Pearl Glue Drier: Carmina Lepe RN (Registered Nurse) Pt VS stable throughout the shift. Pt medicated for pain with moderate relief. Right femora l site shows no signs of active bleeding. No acute changes noted. Hourly rounding completed, will continue to monitor. Carmina Lepe RN Cosmo Lang MD - 09/09/2016 7:42 PM PDTFormatting of this note might be different from the or iginal. Progress Notes by Cosmo Soria MD at 09/09/161941 Author: Cosmo Soria MD Service: Nephrology Author Type: Physician Filed: 09/10/16 0758 Date of Service: 09/09/161941 Status: Signed Pearl Glue Drier: Cosmo Soria MD (Physician) 7106/7106-1 LOS: 2 days Carol Potter is a 51 y.o. man whose PCP is Dr. ANDRY LOFTON. He is known to have ESRD as per PMH> He had been having issues with his right UE AVF since at last few weeks. He apparently had infiltration and did not complete his dialysis Saturday and did not go for dialysis Saturday as his arm was quite painful. He was supposed to follow up with Dr. Malin after initial evaluation 08/27/16 but did not show up for follow up. He had a Us Hemodialysis Access Fistula 08/27/2016 which Showed Velocity elevations through t he graft, up to 638 cm/s at the anastomosis. Fistula was widely patent. He presented to ED and was found to have hyperkalemia and urgent Nephrology consultation wa s requested by Dr. Mejia for urgent dialysis given missed dialysis and hyperkalemia with EKG changes. He indicated feeling OK without any nausea, vomiting, chest pain, shortness of breath, leg swelling. He indicated having had some urine output today. Dr. Meyer was apparently contacted by Dr. Mejia and plan was possible declotting. ICU was contacted and plan is to place a temporary dialysis catheter (no ICU beds available ). 09/08/2016 He had been complaining of cramping right hand. He was seen by Dr. Meyer and plan was for fis tulogram. 09/09/2016 He is seen with his "Shyanne". He feels OK and denied fever, chills, shortness of breath, chest pain, cough. He is s/p fistulogram and right LE tunneled CVC placement with Dr. Meyer which showed Right brachiobasilic fistula was widely patent without significant stenosis. Right subcla vian vein was occluded just proximal to junction with cephalic vein. Attempted crossing an d angioplasty but right innominate vein was also occluded. Left arm venogram done which sh ows occlusion of left subclavian vein near origin with no filling easily seen in left innomi nicanor vein. Appears to have SVC occlusion. Therefore, right groin tunneled catheter place d with tip in IVC. Will need CT venogram of chest to better evaluate central veins. Complications: Inability to cross central occlusions. Ct Chest With Iv Contrast 09/09/2016 resulted in IV infiltration at the injection site. 2. Superior vena cava was not expanded. Plan was to repeat when a new IV has been placed. 3. R ight axillary and mediastinal adenopathy. Nonspecific groundglass opacities within the left upper lobe, may represent acute inflammation or infection. PMH, PSH, Social history, medications, allergies, labs and imaging reviewed as appropriate. Previous history summarized as above. Prior lab data and imaging reviewed. Old records and labs were reviewed and summarized as above. Significant medical/surgical history: ESRD secondary to Biopsy-proven Diabetic nephropathy. He is dialyzed Saturday an saturday at [place] [facility] unit using right UE AVF (Dr. Meyer). He used to have left upper extremity brachio cephalic fistula which clotted off 10/2013. Right upper extremity brachioc ephalic fistula by Dr. Meyer 02/04 DM2 Secondary hyperparathyroidism Anemia of chronic renal failure Endocarditis Family/social history: There is no family history of kidney disease with close family elier rs being on dialysis at early age. 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 There is remote history of Etoh/recreational drug use. He has no biological children. Father had colon cancer, heart disease. Mother . ROS: Review of systems is as per the history of present illness. Otherwise 14 organ system revie w of systems was done and is negative. Examination: Constitutional: Alert awake and oriented sitting up in bed eating potato chips. No asterixi s. HEENT: No JVD, non icteric sclera. Cardiovascular: S1soft. No friction rub. No S3. No murmur. LUNGS: Effort fair. Scattered rales at bases. Abdominal: Soft. No distension and no mass. There is no rebound tenderness and no guarding. EXT: B/L LE with chronic venous changes. distal lower extremity pulses not palpable Neurological: Alert, awake, oriented. No asterixis. Normal sensorium. Speech fluent. Gait n ot tested. Moves all 4 extremities equally. Skin: Skin is warm and dry. Chronic skin thickening right AVF. Hemodialysis access: Left upper extremity brachiocephalic fistula, clotted Right UE brachiocephalic AVF with bruit and infiltration. Right LE tunneled CVC Vital Signs: BP 178/76 mmHg | Pulse 80 | Temp(Src) 98.3 F (36.8 C) (Oral) | Resp 20 | Ht 1.702 m (5' 7") | Wt 83.326 kg (183 lb 11.2 oz) | BMI 28.76 kg/m2 | SpO2 98% Data evaluation: Lab Results Component Value Date BUN 41* 09/08/2016 CREATININE 5.5* 09/08/2016 EGFR 12* 09/08/2016 NA 135 09/08/2016 K 4.4 09/08/2016 CL 98* 09/08/2016 CO2 22* 09/08/2016 CA 8.5 09/08/2016 PHOS 4.9* 09/08/2016 MG 2.4 09/08/2016 ALB 3.5* 09/08/2016 HGB 10.4* 09/08/2016 Lab Results Component Value Date K 4.4 09/08/2016 K 6.9* 09/07/2016 K 4.7 04/30/2016 Assessment and Recommendations: ESRD on HD Clotted AVF Anemia of chronic renal failure HTN Hyperkalemia has resolved. BP is suboptimally controlled with target BP of 130 to 150 mmHg on non dialysis days/pre di alysis. This is likely from dietary indiscretion. He is clinically minimally hypervolemic. . Anemia is moderate. Dr. Meyer and I had a long discussion regarding his plan of care. Plan for dialysis using rig ht tunneled CVC for now and work up for CVC stenosis. If he indeed does have SVC stenosis th en LE graft/AVF could be considered. Plan for repeat CT chest and . Dialyze tomorrow using tunneled CVC Discontinue small dose of lasix. Start torsemide from tomorrow. I discussed with him and his the concept of clotted AVF/SVC syndrome 2 gm Na, 1 gm K, 1 gm PO4, 1 gm/kg protein diet. Please dose all medications for an eGFR of less than 15 ml/min/1.73 m2. No IV contrast studies. No NSAIDS/ADAM 2 inhibitors, Aluminum/magnesium containing antacids, magnesium/phosphate con taining enemas. Fluid restriction 1.5 L in 24 hour period. Strict I/O Daily CMP (including Mg, PO4). Plan of care was discussed with Dr. Meyer and Dr. Roblero Total time: 36 min More than 50% coordination of care and In counseling regarding clotted AVF/SVC syndrome. (time spent in explanation of diagnosis, prognosis, treatment plan and options of treatment ) COSMO SORIA MD 09/09/2016 Portions of my previous notes have been carried over for continuity of care. He was seen earlier in the day and charting was completed later after rounds. Dictation software, Metaforic, was used which may contain error for similar sounding words. Pe rsonal communication is requested for any clarification. Prognosis guarded in view of multiple comorbid illnesses and ESRD allopurinol 100 mg Oral Daily amLODIPine 10 mg Oral Daily aspirin 81 mg Oral Daily with breakfast budesonide-formoterol 2 puff Inhalation 2 times daily carvedilol 3.125 mg Oral BID WC cholecalciferol 2,000 Units Oral Daily furosemide 20 mg Oral Daily ipratropium-albuterol 3 mL Nebulization Q6H levothyroxine 75 mcg Oral QAM AC montelukast 10 mg Oral Nightly sevelamer 2,400 mg Oral TID WC sodium bicarbonate 1,300 mg Oral BID sodium chloride 10 mL Intravenous Q8H vitamin B skyzumq-F-qjtwi acid 1 tablet Oral Daily onversion Transactio n, Provider Unknown - 09/09/2016 6:02 PM PDT Nurse Progress Note by Angeli Espinal RN at 09/09/161801 Author: Angeli Espinal RN Service: (none) Author Type: Registered Nurse Filed: 09/09/161804 Date of Service: 09/09/161801 Status: Signed Pearl Glue Drier: Angeli Espinal RN (Registered Nurse) Pt had new dialysis line placed today in R groin. It appears to have some drainage around t he site. Called mold tooling technician and was advised as long as not actively bleeding to reinforce it and monitor. If appears to be actively bleeding to call, he will come up and assess and do dressing change. He is due for dialysis tomorrow 09/10/16. He also had an IV in the left uppe r arm infiltrate during administration of IV contrast while down for a CT. Area has been mon itored, elevated and ice applied to the arm. No redness, additional swelling. Still has some discomfort at the site. Very difficult stick, new IV started by PICC nurse today. Patient r eports having a lot of discomfort in the new dialysis line and has been medicated with Dilau did when it is due throughout shift PRN. He also continues to have cramping that comes and g oes in the right hand, when it occurs seems to do well with warm blanket to the entire right arm. VSS, call light within reach, hourly rounding. Will continue to monitor. Angeli freed RN Simone Weber i, MD - 09/09/2016 2:57 PM PDTFormatting of this note might be different fro m the original. Progress Notes by Simone Roblero MD at 09/09/16 2805 Author: Simone Roblero MD Service: Hospitalist Author Type: Physician Filed: 09/09/16 1506 Date of Service: 09/09/161456 Status: Signed Pearl Glue Drier: Simone Roblero MD (Physician) [facility]: Hospitalist Progress Note Hospital Day: LOS: 2 days SUBJECTIVE Patient Summary: Events Overnight: Patient is feeling better. NO CP Or SOA No nausea or vomiting. Repor ts dry skin Scheduled Medications allopurinol 100 mg Oral Daily amLODIPine 10 mg Oral Daily aspirin 81 mg Oral Daily with breakfast budesonide-formoterol 2 puff Inhalation 2 times daily carvedilol 3.125 mg Oral BID WC cholecalciferol 2,000 Units Oral Daily furosemide 20 mg Oral Daily ipratropium-albuterol 3 mL Nebulization Q6H levothyroxine 75 mcg Oral QAM AC montelukast 10 mg Oral Nightly sevelamer 2,400 mg Oral TID WC sodium bicarbonate 1,300 mg Oral BID sodium chloride 10 mL Intravenous Q8H vitamin B lvcipii-G-zgkgv acid 1 tablet Oral Daily Continuous Infusions OBJECTIVE Vital Signs: BP 137/63 mmHg | Pulse 81 | Temp(Src) 97.6 F (36.4 C) (Oral) | Resp 18 | Ht 1.702 m (5' 7") | Wt 83.326 kg (183 lb 11.2 oz) | BMI 28.76 kg/m2 | SpO2 99% Physical Exam General Appearance: awake, alert, oriented, in no acute distress Eyes: No gross abnormalities. Neck: neck- supple, no mass, non-tender Lungs: Normal expansion. Clear to auscultation. No rales, rhonchi, or wheezing. Heart: Heart sounds are normal. Regular rate and rhythm without murmur, gallop or rub. Abdomen: Soft, non-tender, normal bowel sounds. No bruits, organomegaly or masses. Extremities: Extremities warm to touch, pink, with no edema. DATA Recent Labs Lab 09/08/16 0534 09/07/162022 WBC 9.91 10.97 HGB 10.4* 10.4* HCT 29.7* 30.4* PLT 255 224 Recent Labs Lab 09/08/16 0534 09/07/162022 NA 135 131* K 4.4 6.9* CL 98* 102 CO2 22* 17* BUN 41* 87* CREATININE 5.5* 10* PROT 7.4 7.8 BILITOT 0.8 0.6 ALT 35 37 AST 23 25 Phosphorus: Lab Results Component Value Date PHOS 4.9* 09/08/2016 Invalid input(s): LABALBU Recent Labs Lab 09/08/16 0534 MG 2.4 No results for input(s): AMYLASE in the last 168 hours. No results for input(s): PHART, PO2ART, ADC9GLT, Z1SZWXGA, BEART in the last 168 hours. Recent Labs Lab 09/07/162022 INR 0.9 No results for input(s): TSH, T3FREE, FREET4 in the last 168 hours. Recent Labs Lab 09/08/16 0534 CKTOTAL 177 Radiology Xr Chest 1 View 09/08/2016 Normal single view chest. RADIA Electronically signed by Kevin Ely MD on Sep 08 2016 1:06AM Referring Provider Line: [phone] ID: [id number] PROBLEM LIST Principal Problem: Acute hyperkalemia Active Problems: Secondary renal hyperparathyroidism (HCC) 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) ESRD (end stage renal disease) on dialysis (HCC) Anemia of chronic kidney failure Dialysis AV fistula malfunction (HCC) Hyponatremia Resolved Problems: * No resolved hospital problems. * ASSESSMENT & PLAN 1. Hyperkalemia due to missed hemodialysis due to malfunctioning of AV fistula, On angiogra m Fistula is widely patent but Dr Meyer identified occlusion in subclavian vein & innominatev .. Therefore he placed R femoral v tunneled catheter. Will perform HD tomorrow from the claire neled catheter. 3. Diabetes. Blood sugar is reasonably well controlled. Monitor. 4. DVT prophylaxis. Heparin. 5. Hypothyroidism. Levothyroxine. [address] chest with contrast could not completed due to blow out of IV access Mathew l re attempt tomorrow from a different access Code Status: Full Code Simone Roblero MD 09/09/2016 2:57 PM onversion Tr ansaction, Provider Unknown - 09/09/2016 5:55 AM PDTFormatting of this note might be differ ent from the original. Progress Notes by Elsie Dickinson RN at 09/09/16554 Author: Elsie Dickinson RN Service: (none) Author Type: Registered Nurse Filed: 09/09/16554 Date of Service: 09/09/16554 Status: Signed Pearl Glue Drier: Elsie Dickinson RN (Registered Nurse) No acute change in Pt condition from previous shift assessment. Elsie Dickinson RN Cosmo Lang MD - 09/08/2016 8:00 PM PDTFormatting of this note might be different from the or iginal. Progress Notes by Cosmo Soria MD at 09/08/161999 Author: Cosmo Soria MD Service: Nephrology Author Type: Physician Filed: 09/09/16905 Date of Service: 09/08/161999 Status: Signed Pearl Glue Drier: Cosmo Soria MD (Physician) [id number] LOS: 1 day Carol Potter is a 51 y.o. man whose PCP is Dr. ANDRY LOFTON. He is known to have ESRD as per PMH> He had been having issues with his right UE AVF since at last few weeks. He apparently had infiltration and did not complete his dialysis Saturday and did not go for dialysis Saturday as his arm was quite painful. He was supposed to follow up with Dr. Malin after initial evaluation 08/27/16 but did not show up for follow up. He had a Us Hemodialysis Access Fistula 08/27/2016 which Showed Velocity elevations through t he graft, up to 638 cm/s at the anastomosis. Fistula was widely patent. He presented to ED and was found to have hyperkalemia and urgent Nephrology consultation wa s requested by Dr. Mejia for urgent dialysis given missed dialysis and hyperkalemia with EKG changes. He indicated feeling OK without any nausea, vomiting, chest pain, shortness of breath, leg swelling. He indicated having had some urine output today. Dr. Meyer was apparently contacted by Dr. Mejia and plan was possible declotting. ICU was contacted and plan is to place a temporary dialysis catheter (no ICU beds available ). 09/08/2016 He has been complaining of cramping right hand. He was seen by Dr. Meyer and plan is for fistulogram tomorrow. He otherwise denied fever, chills, shortness of breath, chest pain, cough. PMH, PSH, Social history, medications, allergies, labs and imaging reviewed as appropriate. Previous history summarized as above. Prior lab data and imaging reviewed. Old records and labs were reviewed and summarized as above. Significant medical/surgical history: ESRD secondary to Biopsy-proven Diabetic nephropathy. He is dialyzed Saturday an saturday at [place] dialysis unit using right UE AVF (Dr. Meyer). He used to have left upper extremity brachio cephalic fistula which clotted off 10/2013. Right upper extremity brachioc ephalic fistula by Dr. Meyer 02/04 DM2 Secondary hyperparathyroidism Anemia of chronic renal failure Endocarditis Family/social history: There is no family history of kidney disease with close family membe rs being on dialysis at early age. 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 There is remote history of Etoh/recreational drug use. He has no biological children. Father had colon cancer, heart disease. Mother . ROS: Review of systems is as per the history of present illness. Otherwise 14 organ system revie w of systems was done and is negative. Examination: Constitutional: Alert awake and oriented sitting up in distress from right thumb cramping. No asterixis. HEENT: No JVD, non icteric sclera. Cardiovascular: S1soft. No friction rub. No S3. No murmur. LUNGS: Effort fair. Scattered rales at bases. Abdominal: Soft. No distension and no mass. There is no rebound tenderness and no guarding. EXT: B/L LE with chronic venous changes. distal lower extremity pulses not palpable Neurological: Alert, awake, oriented. No asterixis. Normal sensorium. Speech fluent. Gait n ot tested. Moves all 4 extremities equally. Skin: Skin is warm and dry. Chronic skin thickening right AVF. Hemodialysis access: Left upper extremity brachiocephalic fistula, clotted Right UE brachiocephalic AVF with bruit and infiltration. Vital Signs: BP 119/72 mmHg | Pulse 95 | Temp(Src) 98.4 F (36.9 C) (Oral) | Resp 26 | Ht 1.702 m (5' 7") | Wt 83.326 kg (183 lb 11.2 oz) | BMI 28.76 kg/m2 | SpO2 96% Data evaluation: Lab Results Component Value Date BUN 41* 09/08/2016 CREATININE 5.5* 09/08/2016 EGFR 12* 09/08/2016 NA 135 09/08/2016 K 4.4 09/08/2016 CL 98* 09/08/2016 CO2 22* 09/08/2016 CA 8.5 09/08/2016 PHOS 4.9* 09/08/2016 MG 2.4 09/08/2016 ALB 3.5* 09/08/2016 HGB 10.4* 09/08/2016 Lab Results Component Value Date K 4.4 09/08/2016 K 6.9* 09/07/2016 K 4.7 04/30/2016 Assessment and Recommendations: ESRD on HD Clotted AVF Anemia of chronic renal failure Hyperkalemia has resolved. BP is Ok. He is clinically minimally hypervolemic. . Anemia is moderate. Plan for fistulogram tomorrow with Dr. Meyer. The AVF seems to be patent but has significa nt infiltration. If resting AVF is planned he would need tunneled CVC placement. Try diazepam for cramping. I discussed with him and his the concept of hyperkalemia and interaction of BP/volume status/medications in maintaining electrolyte balance. 2 gm Na, 1 gm K, 1 gm PO4, 1 gm/kg protein diet. Please dose all medications for an eGFR of less than 15 ml/min/1.73 m2. No IV contrast studies. No NSAIDS/ADAM 2 inhibitors, Aluminum/magnesium containing antacids, magnesium/phosphate con taining enemas. Fluid restriction 1.5 L in 24 hour period. Strict I/O Daily CMP (including Mg, PO4). Plan of care was discussed with Dr. Meyer and Dr. Annika SORIA MD 09/08/2016 Portions of my previous notes have been carried over for continuity of care. He was seen earlier in the day and charting was completed later after rounds. Dictation software, Metaforic, was used which may contain error for similar sounding words. Pe rsonal communication is requested for any clarification. Prognosis guarded in view of multiple comorbid illnesses and ESRD allopurinol 100 mg Oral Daily amLODIPine 10 mg Oral Daily aspirin 81 mg Oral Daily with breakfast budesonide-formoterol 2 puff Inhalation 2 times daily carvedilol 3.125 mg Oral BID WC cholecalciferol 2,000 Units Oral Daily furosemide 20 mg Oral Daily ipratropium-albuterol 3 mL Nebulization Q6H levothyroxine 75 mcg Oral QAM AC montelukast 10 mg Oral Nightly sevelamer 2,400 mg Oral TID WC sodium bicarbonate 1,300 mg Oral BID sodium chloride 10 mL Intravenous Q8H vitamin B gtgyshi-J-cdiep acid 1 tablet Oral Daily onversion Transactio n, Provider Unknown - 09/08/2016 5:31 PM PDT Nurse Progress Note by Angeli Espinal RN at 09/08/16 1731 Author: Angeli Espinal RN Service: (none) Author Type: Registered Nurse Filed: 09/08/16 1900 Date of Service: 09/08/16 1731 Status: Addendum Pearl Glue Drier: Angeli Espinal RN (Registered Nurse) Related Notes: Original Note by Angeli Espinal RN (Registered Nurse) filed at 1812 Dilaudid given x 1 for pain. Otherwise no change to previous assessment. VSS, call light wi thin reach, hourly rounding. Pt to be NPO at midnight for fistulogram procedure at 0800 on . Pt c/o significant R hand cramping late this afternoon. Dr Nik Soria was rounding and ordered Diazepam IV x 1. Initially this helped his cramping and discomfort. Patient was abl e to rest. He again reports continued cramping and pain in the right hand, MD notified. Jeanne zepam IV given x 1. Will continue to monitor. Angeli Espinal RN Tia snow, Simone Smith MD - 09/08/2016 2:51 PM PDTFormatting of this note might be different fro m the original. Progress Notes by Simone Roblero MD at 09/08/16 3853 Author: Simone Roblero MD Service: Hospitalist Author Type: Physician Filed: 09/08/16 6640 Date of Service: 09/08/161450 Status: Signed Pearl Glue Drier: Simone Roblero MD (Physician) Related Notes: Original Note by Simone Roblero MD (Physician) filed at 09/08/16 9817 [facility]: Hospitalist Progress Note Hospital Day: LOS: 1 day SUBJECTIVE Patient Summary: Events Overnight: Patient is feeling better. NO CP Or SOA No nausea or vomiting. Repor ts dry skin Scheduled Medications allopurinol 100 mg Oral Daily amLODIPine 10 mg Oral Daily aspirin 81 mg Oral Daily with breakfast budesonide-formoterol 2 puff Inhalation 2 times daily carvedilol 3.125 mg Oral BID WC cholecalciferol 2,000 Units Oral Daily furosemide 20 mg Oral Daily ipratropium-albuterol 3 mL Nebulization Q6H levothyroxine 75 mcg Oral QAM AC montelukast 10 mg Oral Nightly sevelamer 2,400 mg Oral TID WC sodium bicarbonate 1,300 mg Oral BID sodium chloride 10 mL Intravenous Q8H vitamin B hcsotxs-F-yxnvd acid 1 tablet Oral Daily Continuous Infusions OBJECTIVE Vital Signs: BP 128/60 mmHg | Pulse 86 | Temp(Src) 97.8 F (36.6 C) (Oral) | Resp 22 | Ht 1.702 m (5' 7") | Wt 80 kg (176 lb 5.9 oz) | BMI 27.62 kg/m2 | SpO2 90% Physical Exam General Appearance: awake, alert, oriented, in no acute distress Eyes: No gross abnormalities. Neck: neck- supple, no mass, non-tender Lungs: Normal expansion. Clear to auscultation. No rales, rhonchi, or wheezing. Heart: Heart sounds are normal. Regular rate and rhythm without murmur, gallop or rub. Abdomen: Soft, non-tender, normal bowel sounds. No bruits, organomegaly or masses. Extremities: Extremities warm to touch, pink, with no edema. DATA Recent Labs Lab 09/08/16 0534 09/07/162022 WBC 9.91 10.97 HGB 10.4* 10.4* HCT 29.7* 30.4* PLT 255 224 Recent Labs Lab 09/08/16 0534 09/07/162022 NA 135 131* K 4.4 6.9* CL 98* 102 CO2 22* 17* BUN 41* 87* CREATININE 5.5* 10* PROT 7.4 7.8 BILITOT 0.8 0.6 ALT 35 37 AST 23 25 Phosphorus: Lab Results Component Value Date PHOS 4.9* 09/08/2016 Invalid input(s): LABALBU Recent Labs Lab 09/08/16 0534 MG 2.4 No results for input(s): AMYLASE in the last 168 hours. No results for input(s): PHART, PO2ART, WRL0KKK, R3KMEAGZ, BEART in the last 168 hours. Recent Labs Lab 09/07/162022 INR 0.9 No results for input(s): TSH, T3FREE, FREET4 in the last 168 hours. Recent Labs Lab 09/08/16 0534 CKTOTAL 177 Radiology Xr Chest 1 View 09/08/2016 Normal single view chest. RADIA Electronically signed by Kevin Ely MD on Sep 08 2016 1:06AM Referring Provider Line: [phone] ID: [id number] PROBLEM LIST Principal Problem: Acute hyperkalemia Active Problems: End-stage renal disease (ESRD) (HCC) Dialysis AV fistula malfunction (HCC) Resolved Problems: * No resolved hospital problems. * ASSESSMENT & PLAN 1. Hyperkalemia due to missed hemodialysis due to malfunctioning of AV fistula, status post temporary hemodialysis catheter in the left femoral vein. The patient received dialysis yes terday. Hyperkalemia has resolved. Volume status is euvolemic. 2. AV fistula malfunction. Ultrasound shows high velocity. Dr. Meyer plans to do a fistulogra m tomorrow plus/minus tunneled catheter placement. 3. Diabetes. Blood sugar is reasonably well controlled. Monitor. 4. DVT prophylaxis. Heparin. 5. Hypothyroidism. Levothyroxine. Code Status: Full Code Simone Roblero MD 09/08/2016 2:52 PM onversion Tr leander, Provider Unknown - 09/08/2016 2:28 PM PDTFormatting of this note might be differ ent from the original. Case Management by VANDANA Olivia at 09/08/16 6985 Author: VANDANA Olivia Service: (none) Author Type: Air Export Agent Filed: 09/08/16 0149 Date of Service: 09/08/161427 Status: Signed Pearl Glue Drier: VANDANA Olivia (Air Export Agent) 09/08/16 8578 Discharge Planning Evaluation Admitting Diagnosis ESRD Readmission No Living Arrangements Spouse/significant other (Shyanne Potter) Support Systems Spouse/significant other;Family members (Momo Potter, Son: [phone]) Type of Residence Private residence Independent with ADL's Yes Independent with Mobility Yes Home Care Services No Caregiver after Discharge Yes Caregiver Name Shyanne Potter Relationship to Patient Spouse Phone number No Phone Mental Status Oriented Power of International Flight Attendant No Anticipated Discharge Plan Post Acute Care Needs None at this time Plan communicated to patient/family Yes Resources Financial concerns No Transportation issues No (Family transports) Patient/Family concerns No Prescription Plan Yes Anticipated Disposition Facility Type Home Met with: Pt and Pt's Shyanne Potter and discussed discharge planning, Pt is a 51 y.o., male who lives at home with his Spouse. He is independent with ADL's and mobility. Pt is ESRD and has dialysis at [facility] in [facility]. His Sister transports him to dialysis. Pt denied any discharge n eeds. Pt's Spouse stated that they are very low income and that they used all of their money gett ing to the hospital. She requested a meal voucher as she does not have money to purchase fo od and they live in [facility]. CM provided a sack lunch voucher but explained that Josiah rousseau oes not have a daily meal plan for family members. CM explained that family can bring in gr ocery items that can be kept in the refrigerator in the room and that the family lounge has a microwave for family use. Patient's PCP is: ANDRY LOFTON Patient's insurance: Medicare and Medicaid Coverage concerns: No concerns Medication coverage/concerns: No concerns [facility] Delivery: Community resources utilized / needed: None Assistance in transportation: Family Identification of any specific education / training: None Barriers to Discharge / Alternative housing needed: None Anticipated DCP: Home with Spouse MESSI GUPTA onver quique Transaction, Provider Unknown - 09/08/2016 7:25 AM PDT Progress Notes by Elsie Dickinson RN at 09/08/16724 Author: Elsie Dickinson RN Service: (none) Author Type: Registered Nurse Filed: 09/08/1629 Date of Service: 09/08/16724 Status: Signed Pearl Glue Drier: Elsie Dickinson RN (Registered Nurse) Pt received hemodialysis upon admission to the floor, 2 liters off. Elsie Dickinson RN onver quique Transaction, Provider Unknown - 09/08/2016 3:24 AM PDT Pharmacy Note by Carmina Lara RPH at 09/08/16323 Author: Carmina Lara RPH Service: Pharmacy Author Type: Pharmacist Filed: 09/08/16323 Date of Service: 09/08/16323 Status: Signed Pearl Glue Drier: Carmina Lara RPH (Pharmacist) Clinical Pharmacy Note: Renal Monitoring Height: 170.2 cm Weight: 81.7 kg Patient is on hemodialysis. Pharmacy dosing for renal function per Dr. Dean Currently, there are no medications needing to be adjusted. Pharmacy will continue to monit or for changes in medication orders and adjust accordingly per protocol. Carmina Lara PharmD 09/08/2016 3:23 AM docume nted in this encounter H&P Notes Artis Dean MD - 09/07/2016 9:38 PM PDTFormatting of this note might be different f rom the original. H&P by Artis Dean MD at 09/07/162137 Author: Artis Dean MD Service: (none) Author Type: Physician Filed: 09/07/162307 Date of Service: 09/07/162137 Status: Addendum Pearl Glue Drier: Artis Dean MD (Physician) Related Notes: Original Note by Artis Dean MD (Physician) filed at 09/07/162233 [facility]: Hospitalist Admission History & Physical Pt: Carol Potter AGE/SEX: 51 y.o. male ROOM: [address] [place] [address] PCP: ANDRY LOFTON : 1965 TODAY'S DATE: 09/07/2016 Date of Admission: 09/07/2016 Chief Complaint: Reason for Admission: not have dialysi last 5 days with AV fistular problem with hyperkalemia History of Present Illness: History Obtained From: patient The patient is a 51 y.o. male with significant past medical history of Past Medical History Diagnosis Date Hyperlipidemia Hypertension Thyroid disease Anemia Abdominal pain, right upper quadrant 04/13/2012 Dialysis patient ([facility]) GI bleed 04/30/2012 from coumadin Walker as ambulation aid Gout Asthma pt not using inhaler any more, no symptoms DVT (deep venous thrombosis) ([facility]) x3 AV fistula ([facility]) lt arm Knee pain, right 07/06/2012 MSSA (methicillin susceptible Staphylococcus aureus) infection 04/11/2012 Anemia due to blood loss 04/30/2012 Amphetamine and other psychostimulant dependence, continuous 04/02/2012 Hyperphosphatemia 05/24/2012 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 Rash and nonspecific skin eruption 04/03/2012 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 Neuromuscular disorder ([facility]) neuropathy Hyperkalemia 11/09/2013 Chronic obstructive asthma with exacerbation ([facility]) 10/27/2013 SOB (shortness of breath) 10/27/2013 Diabetes mellitus type I ([facility]) who presents with Problem with Left arm AV fistula dialysis access ongoing issue over last 5 days And can"t dialyse due to that he is under care of With left arm swelling and not having dailysis he call his ne phrology and was send to ER he was also To evalute with vascular For AVF venography, balloon angioplasty, possible e ndovascular intervention On 06 september ER lab potassium 6.9 cr10 GFR 6 co2 17 glucose 205 sodium 131 HR91 afebril BP 181 systolic 100% EKG [place] T+V2-V6 ER consulted ICU ( plan to put cath for HD today) ER conulsted HD to night was givien insulin glocose herminia gluconate Review of Systems: A 10 point review of systems was negative except as mentioned in the HPI. PSHx: Past Surgical History Procedure Laterality Date Unlisted procedure arthroscopy shoulder rt , ligaments Superficialization of av fistula Right 03/30/2014 Procedure: AV FISTULA - SUPERFICIALIZATION; Surgeon: Oskar Meyer MD; Location: [facility] MAIN OR; Service: Vascular; Laterality: Right; Av fistula placement Right 02/09/2014 Procedure: AV FISTULA; Surgeon: Oskar Meyer MD; Location: [facility] MAIN OR; Service: Vascul ar; Laterality: Right; Av fistula repair Left 07/11/2012 Procedure: AV FISTULA - GRAFT REPAIR/REVISION; Surgeon: Oskar Meyer MD; Location: [facility] OR; Service: Vascular; Laterality: Left; Superficialization of brachiobasilic fistula and right IJ perm cath insertion Dialysis fistula creation Left 07/11/2012 Procedure: DIALYSIS CATHETER - INSERTION; Surgeon: Oskar Meyer MD; Location: [facility] MAIN O R; Service: Vascular; Laterality: Left; removed dialysis catheter from left neck and plac ed new on in left chest, attempted in right neck but unable to place Catheter removal Right 07/07/2012 Procedure: DIALYSIS CATHETER - REMOVAL; Surgeon: Oskar Meyer MD; Location: [facility] BEDSIDE PROCEDURE; Service: General; Laterality: Right; perm cath Dialysis fistula creation Left 07/07/2012 Procedure: DIALYSIS CATHETER - INSERTION; Surgeon: Oskar Meyer MD; Location: [facility] BED[facility] E PROCEDURE; Service: General; Laterality: Left; temporary dialysis catheter Knee arthroscopy Right 07/07/2012 Procedure: KNEE - ARTHROSCOPY; Surgeon: Favio Raza MD; Location: [facility] MAIN OR; S ervice: Orthopedics; Laterality: Right; After 1530 Av fistula placement Left 05/06/2012 Procedure: AV FISTULA; Surgeon: Oskar Meyer MD; Location: [facility] MAIN OR; Service: Vascul ar; Laterality: Left; Left arm possible right Colonoscopy with egd N/A 05/01/2012 Procedure: COLONOSCOPY W/ EGD; Surgeon: John Singleton MD; Location: [facility] ENDOSCOPY; Se rvice: Gastroenterology; Laterality: N/A; Prior To admission Meds: Prior to Admission medications Medication Sig Start Date End Date Taking? Authorizing Provider acetaminophen (TYLENOL) 325 MG tablet Take 650 mg by mouth every 6 (six) hours as needed. I ndications: Pain Historical Provider albuterol (PROVENTIL HFA) 108 (90 BASE) MCG/ACT inhaler Inhale 2 puffs into the lungs every 4 (four) hours as needed for Wheezing. Patient taking differently: Inhale 2 puffs into the lungs every 4 (four) hours as needed fo r Wheezing. Took last night 10/28/13 08/27/16 Karri Huff MD allopurinol (ZYLOPRIM) 100 MG tablet Take 100 mg by mouth daily. Indications: Primary Gout CLARENCE Earl amLODIPine (NORVASC) 10 MG tablet Take 10 mg by mouth daily. Historical Provider aspirin 81 MG tablet Take 81 mg by mouth daily. Historical Provider b complex-vitamin c-folic acid (NEPHRO-THU) 0.8 MG TABS Take 1 tablet by mouth daily. Historical Provider budesonide-formoterol (SYMBICORT) 160-4.5 MCG/ACT inhaler Inhale 2 puffs into the lungs 2 ( two) times daily. 04/30/16 05/30/16 Khanh Rangel MD carvedilol (COREG) 3.125 MG tablet Take 3.125 mg by mouth 2 (two) times daily with meals. Historical Provider Cholecalciferol 2000 UNITS TABS Take 1 tablet by mouth daily. Historical Provider fluticasone-salmeterol (ADVAIR DISKUS) 250-50 MCG/DOSE Inhale 1 puff into the lungs 2 (two) times daily. 10/28/13 Karri Huff MD furosemide (LASIX) 20 MG tablet Take 20 mg by mouth daily. Historical Provider levothyroxine (SYNTHROID) 75 MCG tablet Take 75 mcg by mouth every morning before breakfast . Indications: Underactive Thyroid CLARENCE Earl montelukast (SINGULAIR) 10 MG tablet Take 1 tablet by mouth nightly. 10/28/13 10/28/14 Karri Huff MD RENVELA 800 MG tablet take 3 tablets by mouth three times a day WITH MEALS AND 1 TABLET WIT H SNACKS 01/14/14 Juan Timmons MD sodium bicarbonate 650 MG tablet Take 1,300 mg by mouth 2 (two) times daily. Historica l Provider Allergies: Allergies Allergen Reactions Azithromycin Rash Unknown Lisinopril Other (See Comments) "makes me sweat and knocked me out" Penicillins Other (See Comments) Unknown- not sure 10/08/12: Patient tolerated Ceftriaxone during previous admissions. Family Hx: Family History Problem Relation Age of Onset Heart disease Mother Heart disease Father Diabetes Father Cancer Father colon cancer Social Hx: Social History Social History Marital Status: Spouse Name: Shyanne Number of Children: N/A Years of Education: N/A Occupational History Not on file. Social History Main Topics Smoking status: Former Smoker -- 1.00 packs/day for 23 years Quit date: 04/28/2011 Smokeless tobacco: Never Used Comment: quit 17 yrs ago Alcohol Use: No Drug Use: No Comment: Smokes THC Daily, quit methaamphetamine in mar 2012 after ARF Sexual Activity: Not on file Other Topics Concern Not on file Social History Narrative , LIVES WITH . HAS NO BIOLOGICAL KIDS; 2 STEP KIDS. CURRENTLY UNEMPLOYED, BEFOR E WORKED AT [employer] [place]. Quit METHAMPHETAMINES PER PATIENT after t he ARF in mar 2012. FATHER HAS COLON CANCER, HEART DISEASE, MOTHER 15 YEARS AGO. NO FH KIDNEY PROB LEMS. History Smoking status Former Smoker -- 1.00 packs/day for 23 years Quit date: 04/28/2011 Smokeless tobacco Never Used Comment: quit 17 yrs ago History Alcohol Use No Physical Exam: BP 177/76 mmHg | Pulse 90 | Temp(Src) 98.3 F (36.8 C) (Temporal) | Resp 20 | Wt 82.8 kg (182 lb 8.7 oz) | SpO2 100% General Appearance: Alert, cooperative, no distress, appears stated age Head: Normocephalic, without obvious abnormality, atraumatic Eyes: PERRL, conjunctiva/corneas clear, EOM's intact. Ears: Normal external ear canals, both ears Nose: Nares normal, septum midline, mucosa normal, no drainage or sinus tenderness Throat: Lips, mucosa, and tongue normal; teeth and gums normal Neck: Supple, symmetrical, trachea midline, thyroid: no enlargement/tenderness/nodules ; no carotid bruit or JVD Back: Symmetric, no curvature, ROM normal, no CVA tenderness Lungs: BS+ bilaterally, respirations unlabored mild wheez+ Chest Wall: No tenderness or deformity Heart: Regular rate and rhythm, S1 and S2 normal, no murmur, rub or gallop Abdomen: Soft, non-tender, bowel sounds active all four quadrants, no masses, no organomegaly Psychiatric: Alert and oriented x 3. Intact Judgement and insight Rectal: Deferred Extremities: Extremities Rt arm swelling diffusely AV fistular site bruit+ Pulses: 2+ and symmetric all extremities Skin: Skin color, Chronic stsis chnages +, turgor normal, no rashes or lesions Lymph nodes: Cervical nodes normal Neurologic: CNII-XII intact, normal strength, sensation and reflexes throughout Data: CBC: Lab Results Component Value Date WBC 10.97 09/07/2016 RBC 3.37* 09/07/2016 HGB 10.4* 09/07/2016 HCT 30.4* 09/07/2016 MCV 90.1 09/07/2016 MCH 30.8 09/07/2016 MCHC 34.1 09/07/2016 RDW 54.7* 09/07/2016 PLT 224 09/07/2016 MPV 6.5 09/07/2016 DIFFTYPE MANUAL 09/07/2016 CMP: Lab Results Component Value Date NA 131* 09/07/2016 K 6.9* 09/07/2016 CL 102 09/07/2016 CO2 17* 09/07/2016 ANIONGAP 18 09/07/2016 GLUF 205* 09/07/2016 BUN 87* 09/07/2016 CREATININE 10* 09/07/2016 BCR 9 09/07/2016 CA 7.7* 09/07/2016 CA 6.1* 04/02/2012 PROT 7.8 09/07/2016 ALB 3.6 09/07/2016 GLOB 4.2 09/07/2016 BILITOT 0.6 09/07/2016 ALP 85 09/07/2016 AST 25 09/07/2016 ALT 37 09/07/2016 EGFR 6* 09/07/2016 Magnesium: Lab Results Component Value Date MG 2.8* 04/30/2016 Phosphorus: Lab Results Component Value Date PHOS 4.3 04/30/2016 PT/INR: Lab Results Component Value Date INR 0.9 09/07/2016 Troponin: Lab Results Component Value Date TROPONINI <0.02 10/10/2012 Last 3 Troponin: Lab Results Component Value Date TROPONINI <0.02 10/10/2012 TROPONINI <0.02 10/10/2012 TROPONINI <0.02 10/10/2012 TSH: Lab Results Component Value Date TSH 9.96* 04/29/2016 CPK: Lab Results Component Value Date CKTOTAL 62 04/04/2014 CKMB: Lab Results Component Value Date CKMB 3.2 04/04/2014 U/A: Lab Results Component Value Date COLORU see results 10/03/2012 CLARITYU CLEAR 09/07/2016 CLARITYU CLEAR 10/03/2012 MEROPENEM 1.015 10/10/2012 LEUKOCYTESUR NEGATIVE 09/07/2016 NITRITE NEGATIVE 09/07/2016 NITRITE NEGATIVE 10/03/2012 UROBILINOGEN NORMAL 09/07/2016 UROBILINOGEN 0.2 10/03/2012 UPRO 100* 09/07/2016 UPRO >299* 10/03/2012 PHUR 6.0 09/07/2016 PHUR >8.9* 10/03/2012 BLOODU SMALL* 09/07/2016 KETONES NEGATIVE 09/07/2016 BILIRUBINUR NEGATIVE 09/07/2016 BILIRUBINUR NEGATIVE 10/03/2012 GLUCOSEU >500* 09/07/2016 EKG: I personally reviewed the EKG. Findings: IMAGING: No results found. Problem List: Active Problems: AV fistular problem ESRD with hyperkalemia Existing HTN HLD COPD hypothyroiodism Assessment and Plan: Active Problems: AV fistular problem Missing dialysis last 5 days vascular will see him in am was consulted from ER f/ up recommendation as he was Suppose to To evalute with vascular For AVF venography, balloon angioplasty, possible endovascular intervention ESRD with hyperkalemia ICU consulted for cath for HD to night consulted from ER received calcium gluconate glucose and insulin In ER moniter electrolytes repaet EKG in am HD care plan tonight anemia of CKD stable moniter trend HTN resume home med HD also will help BP Lability as well in high trend HLD resume statin COPD Resume Neb inhaler Xray baseline order as miss 5 days HD hypothyroidism resume home med DVT pro Patient's old records and labs that were available, were reviewed in detail and summarized as above. explained radiology and lab findings, plan of care and management to patient at bedside, More than 5 minutes spent on admitting this patient face to face at bedside, taking histor y and physical examination, more than 65% of this spent on explaining plan of care to patien t and relatives at bedside, chart review,formulating a plan and placing orders coordinating care with other providers well as Computerized Wood Grinder Operator. Other recommendations for manage ment of this patient will be dependent upon the patient's clinical course. Inpatient, patient will require minimum of 2 night stay due to complexity of her medical co nditions, and need to stabilize patient's underlying conditions Code Status: Prior Primary Care Physician: ANDRY DEAN MD 09/07/2016 9:39 PM documented in this encounter Procedure Notes Fernie Hopper MD - 09/07/2016 11:21 PM PDT Procedures by Fernie Hopper MD at 09/07/162320 Author: Fernie Hopper MD Service: Pulmonology Author Type: Physician Filed: 09/07/162322 Date of Service: 09/07/162320 Status: Signed Pearl Glue Drier: Fernie Hopper MD (Physician) Procedure Orders: 1. Central line [[id number]] ordered by Fernie Hopper MD at 09/07/162320 Pre-procedure Diagnoses: 1. End-stage renal disease (ESRD) (HCC) [N18.6] Post-procedure Diagnoses: 1. End-stage renal disease (ESRD) (HCC) [N18.6] [facility]: Pulmonology BEDSIDE PROCEDURE NOTE Central Line Date/Time: 09/07/2016 11:21 PM Performed by: FERNIE HOPPER Authorized by: FERNIE HOPPER Consent: Verbal consent obtained. Risks and benefits: risks, benefits and alternatives were discussed Consent given by: patient Patient understanding: patient states understanding of the procedure being performed Patient consent: the patient's understanding of the procedure matches consent given Procedure consent: procedure consent matches procedure scheduled Required items: required blood products, implants, devices, and special equipment available Patient identity confirmed: verbally with patient Time out: Immediately prior to procedure a "time out" was called to verify the correct mahamed ent, procedure, equipment, family support worker and site/side marked as required. Indications: vascular access (dialysis catheter placement) Anesthesia: local infiltration Local anesthetic: lidocaine 1% without epinephrine Anesthetic total: 3 ml Patient sedated: no Preparation: skin prepped with ChloraPrep Skin prep agent dried: skin prep agent completely dried prior to procedure Sterile barriers: all five maximum sterile barriers used - cap, mask, sterile gown, sterile gloves, and large sterile sheet Hand hygiene: hand hygiene performed prior to central venous catheter insertion Location details: right femoral Site selection rationale: unable to pass wire through left IJ; has also had several procedu res on his right IJ site Patient position: flat Catheter type: triple lumen Catheter size: 12 Fr Pre-procedure: landmarks identified Ultrasound guidance: yes Sterile ultrasound techniques: sterile gel and sterile probe covers were used Number of attempts: 2 Successful placement: yes Post-procedure: line sutured and dressing applied Assessment: blood return through all ports and free fluid flow Patient tolerance: Patient tolerated the procedure well with no immediate complications Comments: 1st attempt was at left IJ. Vein was able to be accessed with good blood flow bu t wire would not pass. Procedure aborted and site changed to left femoral under ultrasound guidance. Will check CXR. Fernie Hopper MD 09/07/2016 docume nted in this encounter Consult Notes Jimenez Garnica MD - 09/11/2016 3:44 PM PDT Consult* by Jimenez Garnica MD PhD at 09/11/16 1187 Author: Jimenez Garnica MD PhD Service: Interventional Radiology Author Type: Physician Filed: 09/11/16 0583 Date of Service: 09/11/16 1541 Status: Signed Pearl Glue Drier: Jimenez Garnica MD PhD (Physician) Vascular & Interventional Radiology Consult Note Patient Name: Carol Potter Date of : 1965 Requesting Provider: Oskar Meyer Consulting Provider: Jimenez Garnica Reason for Referral and Chief Complaint: Venous occlusion History of Present Illness: Carol Potter is a 51 y.o. male. I was asked to see Carol for evaluation of right subclavian/ brachiocephalic venous occlusion. 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 Sawyer. Presented again with right arm swelling and Dr. Meyer perfgenny rmed venogram yesterday which showed reocclusion of the right subclavian/brachiocephalic vei ns as well as the central axillary vein. Hospital Problem List: Patient Active Problem List Diagnosis Vitamin D deficiency Secondary renal hyperparathyroidism ([facility]) Hypothyroidism Hypoalbuminemia Diabetes mellitus with ESRD (end-stage renal disease) ([facility]) Obesity (BMI 30-39.9) ESRD (end stage renal disease) on dialysis ([facility]) Anemia of chronic kidney failure Gout PUD (peptic ulcer disease) Steroid-induced hyperglycemia Polysubstance abuse Chronic steroid use Acute hyperkalemia Dialysis AV fistula malfunction ([facility]) Hyponatremia Chronic systolic heart failure ([facility]) Review of Systems: ROS All other systems negative. Code Status: Full Code Past Medical History: Past Medical History Diagnosis Date Hyperlipidemia Hypertension Thyroid disease Anemia Abdominal pain, right upper quadrant 04/13/2012 Dialysis patient ([facility]) GI bleed 04/30/2012 from coumadin Walker as ambulation aid Gout Asthma pt not using inhaler any more, no symptoms DVT (deep venous thrombosis) ([facility]) x3 AV fistula ([facility]) lt arm Knee pain, right 07/06/2012 MSSA (methicillin susceptible Staphylococcus aureus) infection 04/11/2012 Anemia due to blood loss 04/30/2012 Amphetamine and other psychostimulant dependence, continuous 04/02/2012 Hyperphosphatemia 05/24/2012 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 Rash and nonspecific skin eruption 04/03/2012 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 Neuromuscular disorder ([facility]) neuropathy Hyperkalemia 11/09/2013 Chronic obstructive asthma with exacerbation (HCC) 10/27/2013 SOB (shortness of breath) 10/27/2013 Diabetes mellitus type I (HCC) Hyponatremia 09/08/2016 Chronic systolic heart failure (HCC) 09/10/2016 Past Surgical History: Past Surgical History Procedure Laterality Date Unlisted procedure arthroscopy shoulder rt , ligaments Superficialization of av fistula Right 03/30/2014 Procedure: AV FISTULA - SUPERFICIALIZATION; Surgeon: Oskar Meyer MD; Location: [facility] MAIN OR; Service: Vascular; Laterality: Right; Av fistula placement Right 02/09/2014 Procedure: AV FISTULA; Surgeon: Oskar Meyer MD; Location: [facility] MAIN OR; Service: Vascul ar; Laterality: Right; Av fistula repair Left 07/11/2012 Procedure: AV FISTULA - GRAFT REPAIR/REVISION; Surgeon: Oskar Meyer MD; Location: [facility] OR; Service: Vascular; Laterality: Left; Superficialization of brachiobasilic fistula and right IJ perm cath insertion Dialysis fistula creation Left 07/11/2012 Procedure: DIALYSIS CATHETER - INSERTION; Surgeon: Oskar Meyer MD; Location: [facility] MAIN O R; Service: Vascular; Laterality: Left; removed dialysis catheter from left neck and plac ed new on in left chest, attempted in right neck but unable to place Catheter removal Right 07/07/2012 Procedure: DIALYSIS CATHETER - REMOVAL; Surgeon: Oskar Meyer MD; Location: [facility] BEDSIDE PROCEDURE; Service: General; Laterality: Right; perm cath Dialysis fistula creation Left 07/07/2012 Procedure: DIALYSIS CATHETER - INSERTION; Surgeon: Oskar Meyer MD; Location: [facility] BEDSID E PROCEDURE; Service: General; Laterality: Left; temporary dialysis catheter Knee arthroscopy Right 07/07/2012 Procedure: KNEE - ARTHROSCOPY; Surgeon: Favio Raza MD; Location: [facility] MAIN OR; S ervice: Orthopedics; Laterality: Right; After 1530 Av fistula placement Left 05/06/2012 Procedure: AV FISTULA; Surgeon: Oskar Meyer MD; Location: [facility] MAIN OR; Service: Vascul ar; Laterality: Left; Left arm possible right Colonoscopy with egd N/A 05/01/2012 Procedure: COLONOSCOPY W/ EGD; Surgeon: John Singleton MD; Location: [facility] ENDOSCOPY; Se rvice: Gastroenterology; Laterality: N/A; Family History: Family History Problem Relation Age of Onset Heart disease Mother Heart disease Father Diabetes Father Cancer Father colon cancer Social History: Social History Social History Marital Status: Spouse Name: Shyanne Number of Children: N/A Years of Education: N/A Social History Main Topics Smoking status: Former Smoker -- 1.00 packs/day for 23 years Quit date: 04/28/2011 Smokeless tobacco: Never Used Comment: quit 17 yrs ago Alcohol Use: No Drug Use: No Comment: Smokes THC Daily, quit methaamphetamine in mar 2012 after ARF Sexual Activity: Not on file Other Topics Concern Not on file Social History Narrative , LIVES WITH . HAS NO BIOLOGICAL KIDS; 2 STEP KIDS. CURRENTLY UNEMPLOYED, BEFOR E WORKED AT [employer] [place]. Quit METHAMPHETAMINES PER PATIENT after t he ARF in mar 2012. FATHER HAS COLON CANCER, HEART DISEASE, MOTHER 15 YEARS AGO. NO FH KIDNEY PROB LEMS. Medications and Allergies: Current Medications: allopurinol 100 mg Oral Daily amLODIPine 10 mg Oral Daily aspirin 81 mg Oral Daily with breakfast budesonide-formoterol 2 puff Inhalation 2 times daily carvedilol 3.125 mg Oral BID WC cholecalciferol 2,000 Units Oral Daily fentaNYL fentaNYL heparin (porcine) ipratropium-albuterol 3 mL Nebulization Q6H levothyroxine 75 mcg Oral QAM AC lidocaine 10 mL Intradermal Once midazolam midazolam montelukast 10 mg Oral Nightly sevelamer 2,400 mg Oral TID WC sodium bicarbonate buffer sodium bicarbonate 1,300 mg Oral BID sodium chloride 10 mL Intravenous Q8H sodium chloride 10 mL Intravenous 2 times per day torsemide 50 mg Oral Daily vitamin B lhrmtcf-K-hjcps acid 1 tablet Oral Daily Prescriptions prior to admission Medication Sig Dispense Refill Last Dose acetaminophen (TYLENOL) 325 MG tablet Take 650 mg by mouth every 6 (six) hours as need ed. Indications: Pain Taking albuterol (PROVENTIL HFA) 108 (90 BASE) MCG/ACT inhaler Inhale 2 puffs into the lungs every 4 (four) hours as needed for Wheezing. (Patient taking differently: Inhale 2 puffs int o the lungs every 4 (four) hours as needed for Wheezing. Took last night) 1 Inhaler 1 Taki ng allopurinol (ZYLOPRIM) 100 MG tablet Take 100 mg by mouth daily. Indications: Primary Gout Not Taking amLODIPine (NORVASC) 10 MG tablet Take 10 mg by mouth daily. Not Taking aspirin 81 MG tablet Take 81 mg by mouth daily. Taking b complex-vitamin c-folic acid (NEPHRO-THU) 0.8 MG TABS Take 1 tablet by mouth daily. Not Taking budesonide-formoterol (SYMBICORT) 160-4.5 MCG/ACT inhaler Inhale 2 puffs into the lung s 2 (two) times daily. 2 each 0 carvedilol (COREG) 3.125 MG tablet Take 3.125 mg by mouth 2 (two) times daily with tarun ls. Not Taking Cholecalciferol 2000 UNITS TABS Take 1 tablet by mouth daily. Not Taking fluticasone-salmeterol (ADVAIR DISKUS) 250-50 MCG/DOSE Inhale 1 puff into the lungs 2 (two) times daily. 60 each 0 Not Taking furosemide (LASIX) 20 MG tablet Take 20 mg by mouth daily. Not Taking levothyroxine (SYNTHROID) 75 MCG tablet Take 75 mcg by mouth every morning before briseida kfast. Indications: Underactive Thyroid Not Taking montelukast (SINGULAIR) 10 MG tablet Take 1 tablet by mouth nightly. 30 tablet 0 Hector ing RENVELA 800 MG tablet take 3 tablets by mouth three times a day WITH MEALS AND 1 TABLE T WITH SNACKS 300 tablet 1 Taking sodium bicarbonate 650 MG tablet Take 1,300 mg by mouth 2 (two) times daily. Hector ing @ENCMED@ Allergies: Allergies Allergen Reactions Azithromycin Rash Unknown Lisinopril Other (See Comments) "makes me sweat and knocked me out" Penicillins Other (See Comments) Unknown- not sure 10/08/12: Patient tolerated Ceftriaxone during previous admissions. Labs: 3 Day Labs: Recent Labs Lab 09/11/16 0627 09/10/16 1342 09/08/16 0534 09/07/163 WBC 9.65 9.25 9.91 10.97 HGB 9.6* 10.1* 10.4* 10.4* HCT 28.2* 29.0* 29.7* 30.4* PLT 239 223 255 224 NA 132* 135 135 131* K 4.5 3.8 4.4 6.9* CL 95* 97* 98* 102 CO2 28 28 22* 17* BUN 40* 27* 41* 87* CREATININE 6.4* 4.5* 5.5* 10* PHOS 3.5 3.1 4.9* -- MG 2.3 2.4 2.4 -- PROT 6.8 7.1 7.4 7.8 BILITOT 0.5 0.5 0.8 0.6 INR -- -- -- 0.9 Imaging/Procedures: Pertinent Studies and Results Imaging Data: Ct Chest With Iv Contrast 09/10/[address] CHEST W CONTRAST 09/10/2016 12:20 PM History: 51 years. Male. F ailing RIGHT upper arm arteriovenous dialysis fistula. Angioplasty of the RIGHT subclavian vein for stenosis, and placement of RIGHT femoral tunneled dialysis catheter on 09/10/15. S uspected superior vena caval thrombosis. Technique: During bolus intravenous administration of 100 cc of nonionic iodine contrast and a single breath hold, 1.25 millimeter thick slices were performed throughout the chest in the axial plane and reconstructed in 5-mm thick slic es for display. Additional coronal plane imaging was reconstructed. Radiation dose reduction performed with automated exposure control. Comparison examinations: None. Findings: Diffus e soft tissue subcutaneous edema is noted throughout the RIGHT lateral and anterior chest wa ll. Large lymph nodes are visualized in the RIGHT axillary region, with normal morphology, probably reactive. Collateral subcutaneous venous circulation is visualized in the anterior upper LEFT RIGHT chest wall. The RIGHT upper arm is above the head and only partially visua lized. The RIGHT axillary vein shows normal contrast enhancement. The RIGHT subclavian vei n is completely obstructed, just before it passes over the anterior RIGHT 1st rib. The LEFT axillary vein was used for contrast injection and appears to be patent. The LEFT subclavian vein is constricted as it passes over the anterior LEFT 1st rib, best visualized on image 3 0 series 4. The distal LEFT subclavian vein is normally opacified. The superior vena cava is patent but is constricted or narrowed just before entering the RIGHT atrium, image 107 se rayo 4. This appears to be an fibrotic constriction rather than intraluminal thrombus. Ther e is normal opacification of the azygos vein. The central pulmonary arteries appear normal. The inferior vena cava is opacified, normally emptying into the RIGHT atrium. The thyroid gland is normal in size and density, without nodule. There is mild calcification of the tho racic aorta with normal caliber. The cardiac volume and pericardial thickness are normal. There is moderate bilateral gynecomastia. The lung velasco demonstrate focal areas of atelect asis and/or consolidation in the posterior inferior RIGHT costophrenic sulcus with linear at electasis in the LEFT lung base. No pulmonary nodules or pneumonia identified. Bronchial t hickening is moderate in the central lungs, suggesting interstitial pulmonary edema or chron ic bronchitis. The upper abdomen is partially visualized and appears normal. This is not a c omplete examination of the abdomen. Mild osteophytes are visualized in the thoracic spine. Bone density is normal. 09/10/2016 1. Occlusion of the RIGHT subclavian vein just proximal to the RIGHT 1st rib, probably due to thrombosis. 2. Severe narrowing of the LEFT subclavian vein as it passes ov er the LEFT 1st rib. 3. Apparent fibrotic stenosis of the distal aspect of the superior seth a cava as it enters the RIGHT atrium. 4. Moderate RIGHT axillary lymphadenopathy, probably reactive. 5. Diffuse subcutaneous edema throughout the RIGHT anterior chest wall and the la teral chest wall. 6. Moderately large subcutaneous collateral venous blood flow in the uppe r anterior RIGHT chest, suggesting chronic stenosis or occlusion of the RIGHT subclavian vei n. 7. Mild atelectasis/focal pneumonia in the RIGHT lung base. 8. Mild interstitial pulmon alen edema versus chronic bronchitis. Electronically signed by Carlos Eduardo Bowman MD on 2016 12:[address] Chest With Iv Contrast 09/09/2016 CAROL POTTER [address] CHEST W CONTRAST 09/09/2016 11:30 AM HISTO RY: Superior vena cava occlusion COMPARISON: None. TECHNIQUE: CT scan of the chest with IV c ontrast. 5 mm thick helically acquired axial images were performed. Examination reviewed i n soft tissue and lung algorithm. Dose reduction techniques were used including automated e xposure control, iterative reconstruction technique, and/or automated adjustable mAs based o n patient size. IV contrast: 80 mL Isovue-300. Intravenous contrast was demonstrated infiltr ating at the injection site. I was notified by the radioisotope technologist and was asked to evaluate the patient. There was confirmed this in the area of contrast injection within the left lat eral arm as well as tenderness, which the patient said was new. The patient's capillary refi ll was within normal limits on the left. The patient's nurse on the floor were notified of t he contrast infiltration and to monitor for any evidence of compartment syndrome. Dr. Meyer, t he ordering physician, was also notified. FINDINGS: The heart is within normal limits for si ze. No significant pericardial effusion status. Coronary artery calcifications are noted. Th e thoracic aorta is mildly atherosclerotic, without aneurysm. Evaluation of the superior steh a cava is suboptimal due to the contrast infiltration at the injection site. However, the SV C does not appear to be expanded. Multiple enlarged lymph nodes are present within the right axilla measuring up to 3.4 x 1.5 cm (series 3, image 12). There also multiple prominent med iastinal lymph nodes including a 1.4 x 2.0 cm right paratracheal lymph node (series 3, image 16). No bulky hilar lymph nodes are demonstrated. Note is made of bilateral gynecomastia. D iffuse subcutaneous edema is noted, most prominent within the right axilla. Superficial vari cosities are noted within the right chest (series 3, image 4), which may represent collatera l flow. Groundglass opacities are noted within the left upper lobe and lingula (series 3, im age 30 and 33). Mild scarring or subsegmental atelectasis noted in the left lower lobe. No s ignificant pleural effusion. No acute osseous abnormalities. Limited images of the upper abd omen demonstrate focal area of low attenuation adjacent to the falciform ligament (series 3, image 52), which is nonspecific, but located in area typical of fatty change. 09/09/2016 1. Suboptimal exam due to IV infiltration at the injection site. Please see abo ve discussion under technique. 2. Superior vena cava is not expanded. Consider repeating re peating the exam when a new IV has been placed. Alternatively, right upper extremity ultraso und could be performed to evaluate for any abnormal waveforms, which may indicate central oc clusion. 3. Right axillary and mediastinal adenopathy. Differential considerations include reactive versus, and preoperative versus metastatic disease. 4. Nonspecific groundglass opa cities within the left upper lobe, may represent acute inflammation or infection. Electronic ally signed by Kenneth Garrett on 09/09/2016 2:21 PM Xr Chest 1 View 09/08/2016 EXAM: CHEST RADIOGRAPHY EXAM DATE: 09/07/2016 11:53 PM. CLINICAL HISTORY: Hyperk alemia, end-stage renal disease COMPARISON: 04/28/2016. TECHNIQUE: 1 view. FINDINGS: Lungs /Pleura: No focal opacities evident. No pleural effusion. No pneumothorax. Mediastinum: Wi thin exam limitations, cardiomediastinal contour is normal. Other: None. 09/08/2016 Normal single view chest. [facility] Electronically signed by Kevin Ely MD on Sep 08 2016 1:06AM Referring Provider Line: [id number] ID: [id number] Echo Cardiac Adult Complete 09/11/2016 Patient Name: CAROL POTTER Date of : 1965 Perform ing Physician: Kevin Ellis MD ------REPORT ADDENDED------ INDICATIONS SHORTNESS OF BREATH, ESR, AV FISTULA ISSUES CONCLUSIONS 1. Essentially normal study. FINDINGS -------- ECG rh ythm: Sinus rhythm. Study: A 2-dimensional transthoracic echocardiogram with m-mode, spectra l and color flow Doppler was perfomed. Study: This was a technically adequate study. Left Ve ntricle: Overall left ventricular systolic function is normal with, an EF between 55 - 60 %. Left Ventricle: The left ventricle cavity size is normal. Left Ventricle: Left ventricular wall thickness is normal. Right Ventricle: The right ventricle is normal in size. Left Atriu m: The left atrium is normal in size. Right Atrium: The right atrium is normal in size. Aort ic Valve: The aortic valve is trileaflet, and appears anatomically normal. No aortic stenosi s or regurgitation. Mitral Valve: The mitral valve is normal. Mitral Valve: There is trace m itral regurgitation. Tricuspid Valve: The tricuspid valve appears structurally normal. Tricu spid Valve: Trace tricuspid regurgitation present. Tricuspid Valve: Right ventricular systol ic pressure (pulmonary artery systolic pressure) is normal at < 35 mmHg. Pulmonic Valve: The pulmonic valve was not well visualized. Pericardium: There is no pericardial effusion. IVC/ Hepatic Veins: The IVC is small (<1.5cm) and collapses with sniff, consistent with central v enous pressures of 0-5mmHg. MEASUREMENTS Ao asc: 3.31 cm Ao sinus: 2.[address] junct: 2.97 cm IVC: 1.36 cm LA Major: 4.85 cm EDV(Teich): 130.29 ml IVSd: 0 .73 cm LVIDd: 5.21 cm LVPWd: 0.95 cm LVOT Diam: 2.23 cm %FS: 31.08 % EF(Teich): 58 .41 % ESV(Teich): 54.18 ml IVSs: 0.83 cm LVIDs: 3.59 cm LVPWs: 1.23 cm SV(Teich): 76.11 ml RA Major: 4.85 cm RVIDd: 2.78 cm LAESV(A-L): 51.17 ml LAESV Index (A-L): 26 .24 ml/m2 LAAs A2C: 16.62 cm2 LAESV A-L A2C: 49.08 ml LALs A2C: 4.77 cm LAAs A4C: 17 .33 cm2 LAESV A-L A4C: 53.09 ml LALs A4C: 4.80 cm Ao Diam: 4.05 cm AV Cusp: 2.47 cm LA Diam: 3.09 cm LA/Ao: 0.76 TAPSE: 2.72 cm IVC diameter: 1.44 cm IVC collapse: 0. 39 cm IVC % collapse: 71.27 % HR: 82.96 BPM AV maxP.62 mmHg AV meanP.44 mmH g AV Vmax: 1.70 m/s AV Vmean: 1.32 m/s AV VTI: 38.03 cm JACKIE Vmax: 2.75 cm2 JACKIE (VTI) : 2.89 cm2 AVAI Vmax: 0.00 cm2/m2 AVAI (VTI): 0.00 cm2/m2 LVCI Dopp: 4.59 l/minm2 LV CO Dopp: 8.95 l/min HR: 81.40 BPM LVOT maxP.74 mmHg LVOT meanP.12 mmHg LVSI Dopp: 56.39 ml/m2 LVSV Dopp: 109.96 ml LVOT Vmax: 1.19 m/s LVOT Vmean: 0.82 m/s LVOT VTI: 28.00 cm MCO: 449.82 ms MV A Lenard: 1.32 m/s MV DecT: 149.51 ms MV E Lenard: 1.16 m/s MV E/A Ratio: 0.88 MV PHT: 46.03 ms MVA By PHT: 4.77 cm2 MV A Dur: 134.94 ms Se ptal e': 0.06 m/s Septal E/e': 17.33 Lateral e': 0.10 m/s Lateral E/e': 11.56 P Vein A: 0.36 m/s P Vein A Dur: 86.50 ms P Vein D: 0.42 m/s P Vein S/D Ratio: 1.29 P Vein S: 0.54 m/s HR: 79.17 BPM PV maxP.23 mmHg PV meanP.92 mmHg PV Vmax: 0.89 m/s PV Vmean: 0.66 m/s PV VTI: 20.34 cm RV S': 0.14 m/s TV A Lenard: 0.84 m/s TV Dec Sl ope: 3.82 m/s2 TV Dec Time: 202.99 ms TV E Lenard: 0.77 m/s TV E/A Ratio: 0.91 Sonograp her: KVW Authenticated by: Kevin Ellis MD Report Date/Time: 09-11-2016 12:56:14 09/11/2016 1. Essentially normal study. Ir Guidance Vascular Access Us 09/09/2016 This Point of Care (POC) ultrasound image has been reviewed and interpreted by t barbie physician identified as the performing physician in the associated interpretation and rep ort. Us Hemodialysis Access Fistula Or Graft 08/27/2016 HISTORY: 51-year-old male, requires interrogation of hemodialysis fistula graft T ECHNIQUE: 1. Sonographic evaluation of the right upper extremity, color flow Doppler and dup harvey evaluation through the arteriovascular supply] EDV right brachiobasilic fistula in the p roximal right upper extremity Prior study for review : None similar FINDINGS: Flow in the di stal brachial artery demonstrates a peak velocity of 436 cm/s, there is ileus seen and spect ral broadening. The flow volume is about 1.2 L/m At the anastomosis, AP velocity is even hig her, 638 cm/s, with a luminal diameter of 6.7 mm. Diastolic flow is also elevated to 351 cm per sec and there is increasing spectral broadening The outflow vein is capacious, but with a velocity of 218 cm/s Flow volume of 5.8 L/m. A luminal diameter of 13 mm is demonstrated O utflow vein demonstrates a velocity of about 164 significant second at the level of the midh umerus, and inflow volume of 1.77 m/m 08/27/2016 1. Velocity elevations through the graft, up to 638 cm/s at the anastomosis. Alth ough the fistula is widely patent, elevated velocities could be evidence of subsequent diffi culty. Close imaging surveillance should be considered Physical Examination: Filed Vitals: 09/11/16 1242 BP: 131/86 Pulse: 79 Temp: 98.5 F (36.9 C) Resp: 189 SpO2: 96% Physical Exam Constitutional: He is oriented to person, place, and time. No distress. Morbid obesity HENT: Head: Normocephalic. Eyes: Pupils are equal, round, and reactive to light. Neck: Normal range of motion. Neck supple. No JVD present. No tracheal deviation present. Cardiovascular: Normal rate and regular rhythm. Chest wall and neck collaterals. Good pulsatile palpable thrill of right brachiobasilic upp er arm fistula. Pulmonary/Chest: Effort normal. No respiratory distress. Abdominal: Soft. He exhibits no distension. There is no tenderness. Musculoskeletal: Normal range of motion. He exhibits no edema. Lymphadenopathy: He has no cervical adenopathy. Neurological: He is alert and oriented to person, place, and time. Skin: Skin is warm and dry. Plan for Sedation: IV Conscious Sedation with Fentanyl and Versed. Moderate Sedation Presedation Assessment completed. ASA Classification: ASA 3: Patient with a severe systemic disease Mallampati Classification: III: Soft and hard palate and base of the uvula are visible Consent: Risks, alternatives, and benefits of the procedure were discussed with the patient. Questio ns were answered. Signed and verbal consent were given as witnessed by staff. Pre-Procedure Diagnosis: Central venous occlusion Procedure to be performed: Attempt for central venous recanalization. Assessment and Plan: Central venous occlusion of right central axillary, subclavian and brachiocephalic veins. D /w pt and Dr. Meyer. Will plan attempt of recanalization with superior and inferior accesses. Pt understands risk of , vessel perforation, pericardial tamponade and possible repeate d unsuccessful intervention. PARQ held, questions answered and pt would like to proceed. Jimenez Rushing, PhD Interventional Radiology and Vascular Medicine Vascular and Interventional Radiology Available 14/01 through our clinic 509 Oskar Cuello MD - 09/08/2016 11:42 AM PDT Consults by Oskar Meyer MD at 09/08/16 1142 Author: Oskar Meyer MD Service: Vascular Surgery Author Type: Physician Filed: 09/08/16 1148 Date of Service: 09/08/16 114 Status: Signed Pearl Glue Drier: Oskar Meyer MD (Physician) Subjective: Patient is a 51 y.o. male with PMH significant for HTN, HLD, DM, and ESRD who has been dial yzing via right upper extremity brachiobasilic fistula for last 3 years. However, the dialy sis unit have been having difficult time accessing right arm fistula. He was scheduled for f istulagram with Dr. Malin but missed his appointment. He was seen last night in the ED and fo und to have potassium of 6.9. Therefore, a temporary catheter was placed for urgent HD. Va scular surgery was consulted for evaluation of right arm fistula. Patient Active Problem List Diagnosis Date Noted End-stage renal disease (ESRD) ([facility]) 09/07/2016 Acute hyperkalemia 09/07/2016 Dialysis AV fistula malfunction ([facility]) 09/07/2016 Acute respiratory failure with hypoxia and hypercapnia ([facility]) 04/28/2016 Polysubstance abuse 04/28/2016 Hyponatremia 04/28/2016 Anemia of chronic disease 04/28/2016 Chronic obstructive asthma with exacerbation ([facility]) 04/28/2016 Chronic steroid use 04/28/2016 Gram-positive cocci bacteremia 03/18/2014 Pneumonia, organism unspecified 03/15/2014 Steroid-induced hyperglycemia 11/10/2013 Malnutrition of moderate degree ([facility]) 10/10/2012 PUD (peptic ulcer disease) 10/03/2012 Gout 07/06/2012 Anemia of chronic kidney failure 05/24/2012 HTN (hypertension) 04/30/2012 ESRD (end stage renal disease) on dialysis ([facility]) 04/30/2012 Diabetes mellitus with ESRD (end-stage renal disease) ([facility]) 04/14/2012 Obesity (BMI 30-39.9) 04/14/2012 Class: Chronic Hypoalbuminemia 04/11/2012 Hypothyroidism 04/07/2012 Vitamin D deficiency 04/03/2012 Secondary hyperparathyroidism (of renal origin) 04/03/2012 Past Medical History Diagnosis Date Hyperlipidemia Hypertension Thyroid disease Anemia Abdominal pain, right upper quadrant 04/13/2012 Dialysis patient ([facility]) GI bleed 04/30/2012 from coumadin Walker as ambulation aid Gout Asthma pt not using inhaler any more, no symptoms DVT (deep venous thrombosis) ([facility]) x3 AV fistula ([facility]) lt arm Knee pain, right 07/06/2012 MSSA (methicillin susceptible Staphylococcus aureus) infection 04/11/2012 Anemia due to blood loss 04/30/2012 Amphetamine and other psychostimulant dependence, continuous 04/02/2012 Hyperphosphatemia 05/24/2012 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 Rash and nonspecific skin eruption 04/03/2012 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 Neuromuscular disorder ([facility]) neuropathy Hyperkalemia 11/09/2013 Chronic obstructive asthma with exacerbation ([facility]) 10/27/2013 SOB (shortness of breath) 10/27/2013 Diabetes mellitus type I ([facility]) Past Surgical History Procedure Laterality Date Unlisted procedure arthroscopy shoulder rt , ligaments Superficialization of av fistula Right 03/30/2014 Procedure: AV FISTULA - SUPERFICIALIZATION; Surgeon: Oskar Meyer MD; Location: [facility] MAIN OR; Service: Vascular; Laterality: Right; Av fistula placement Right 02/09/2014 Procedure: AV FISTULA; Surgeon: Oskar Meyer MD; Location: [facility] MAIN OR; Service: Vascul ar; Laterality: Right; Av fistula repair Left 07/11/2012 Procedure: AV FISTULA - GRAFT REPAIR/REVISION; Surgeon: Oskar Meyer MD; Location: [facility]; Service: Vascular; Laterality: Left; Superficialization of brachiobasilic fistula and right IJ perm cath insertion Dialysis fistula creation Left 07/11/2012 Procedure: DIALYSIS CATHETER - INSERTION; Surgeon: Oskar Meyer MD; Location: [facility] MAIN O R; Service: Vascular; Laterality: Left; removed dialysis catheter from left neck and plac ed new on in left chest, attempted in right neck but unable to place Catheter removal Right 07/07/2012 Procedure: DIALYSIS CATHETER - REMOVAL; Surgeon: Oskar Meyer MD; Location: [facility] BEDSIDE PROCEDURE; Service: General; Laterality: Right; perm cath Dialysis fistula creation Left 07/07/2012 Procedure: DIALYSIS CATHETER - INSERTION; Surgeon: Oskar Meyer MD; Location: [facility] BED[facility] E PROCEDURE; Service: General; Laterality: Left; temporary dialysis catheter Knee arthroscopy Right 07/07/2012 Procedure: KNEE - ARTHROSCOPY; Surgeon: Favio Raza MD; Location: [facility] MAIN OR; ervice: Orthopedics; Laterality: Right; After 1530 Av fistula placement Left 05/06/2012 Procedure: AV FISTULA; Surgeon: Oskar Meyer MD; Location: [facility] MAIN OR; Service: Vascul ar; Laterality: Left; Left arm possible right Colonoscopy with egd N/A 05/01/2012 Procedure: COLONOSCOPY W/ EGD; Surgeon: John Singleton MD; Location: [facility] ENDOSCOPY; Se rvice: Gastroenterology; Laterality: N/A; Prescriptions prior to admission Medication Sig Dispense Refill Last Dose acetaminophen (TYLENOL) 325 MG tablet Take 650 mg by mouth every 6 (six) hours as neede d. Indications: Pain Taking albuterol (PROVENTIL HFA) 108 (90 BASE) MCG/ACT inhaler Inhale 2 puffs into the lungs e very 4 (four) hours as needed for Wheezing. (Patient taking differently: Inhale 2 puffs into the lungs every 4 (four) hours as needed for Wheezing. Took last night) 1 Inhaler 1 Taking allopurinol (ZYLOPRIM) 100 MG tablet Take 100 mg by mouth daily. Indications: Primary G out Not Taking amLODIPine (NORVASC) 10 MG tablet Take 10 mg by mouth daily. Not Taking aspirin 81 MG tablet Take 81 mg by mouth daily. Taking b complex-vitamin c-folic acid (NEPHRO-THU) 0.8 MG TABS Take 1 tablet by mouth daily. Not Taking budesonide-formoterol (SYMBICORT) 160-4.5 MCG/ACT inhaler Inhale 2 puffs into the lungs 2 (two) times daily. 2 each 0 carvedilol (COREG) 3.125 MG tablet Take 3.125 mg by mouth 2 (two) times daily with meal s. Not Taking Cholecalciferol 2000 UNITS TABS Take 1 tablet by mouth daily. Not Taking fluticasone-salmeterol (ADVAIR DISKUS) 250-50 MCG/DOSE Inhale 1 puff into the lungs 2 ( two) times daily. 60 each 0 Not Taking furosemide (LASIX) 20 MG tablet Take 20 mg by mouth daily. Not Taking levothyroxine (SYNTHROID) 75 MCG tablet Take 75 mcg by mouth every morning before break fast. Indications: Underactive Thyroid Not Taking montelukast (SINGULAIR) 10 MG tablet Take 1 tablet by mouth nightly. 30 tablet 0 Taking RENVELA 800 MG tablet take 3 tablets by mouth three times a day WITH MEALS AND 1 TABLET WITH SNACKS 300 tablet 1 Taking sodium bicarbonate 650 MG tablet Take 1,300 mg by mouth 2 (two) times daily. Taking Allergies Allergen Reactions Azithromycin Rash Unknown Lisinopril Other (See Comments) "makes me sweat and knocked me out" Penicillins Other (See Comments) Unknown- not sure 10/08/12: Patient tolerated Ceftriaxone during previous admissions. Social History Substance Use Topics Smoking status: Former Smoker -- 1.00 packs/day for 23 years Quit date: 04/28/2011 Smokeless tobacco: Never Used Comment: quit 17 yrs ago Alcohol Use: No Family History Problem Relation Age of Onset Heart disease Mother Heart disease Father Diabetes Father Cancer Father colon cancer Review of Systems Pertinent items are noted in HPI. Objective: Patient Vitals for the past 8 hrs: BP Temp Temp src Pulse Resp SpO2 09/08/16 1111 - - - 87 24 100 % 09/08/16 1101 - - - 88 24 99 % 09/08/16 0753 158/74 mmHg 98.4 F (36.9 C) Oral 92 24 97 % 09/08/16 0502 - - - 97 22 97 % 09/08/16 0500 - - - 100 24 97 % Vitals reviewed. Constitutional: Patient appears well-developed and well-nourished. HENT: Head: Normocephalic and atraumatic. Mouth/Throat: Oropharynx is clear and moist. Cardiovascular: Normal rate and regular rhythm. Pulmonary/Chest: Effort normal and breath sounds normal. Abdominal: Soft. Bowel sounds are normal. Musculoskeletal: Normal range of motion. Neurological: Patient is alert and oriented to person, place, and time. Skin: Skin is warm and dry. Vascular: Mild thrill in right arm. Moderate edema of right arm concerning for central st enosis. Data Review: CBC: Lab Results Component Value Date WBC 9.91 09/08/2016 RBC 3.39* 09/08/2016 BMP: Lab Results Component Value Date GLUCOSE 589* 07/12/2012 CO2 22* 09/08/2016 BUN 41* 09/08/2016 CREATININE 5.5* 09/08/2016 Coagulation: Lab Results Component Value Date INR 0.9 09/07/2016 APTT 25 04/04/2014 Assessment and plan: 51 yo male with poorly functioning right brachiobasilic fistula. Will plan for fistulagram tomorrow morning for assessment of fistula. May need tunneled dialysis catheter due to asad e infiltration around fistula with resting of fistula. Will make NPO after MN and plan for fistulagram at 8 am tomorrow. Please feel free to call with any questions or concerns. Cosmo Lang MD - 08/22 10:40 PM PDT Consult* by Cosmo Soria MD at 09/07/162239 Author: Cosmo Soria MD Service: Nephrology Author Type: Physician Filed: 09/08/16 2121 Date of Service: 09/07/162239 Status: Signed Pearl Glue Drier: Cosmo Soria MD (Physician) [phone] History Obtained From: patient, spouse, chart review Carol Potter is a 51 y.o. man whose PCP is Dr. ANDRY LOFTON. He is known to have ESRD as per PMH> He has been having issues with his right UE AVF since at last few weeks. He apparently had infiltration and did not complete his dialysis Saturday and did not go for dialysis Saturday as his arm was quite painful. He was supposed to follow up with Dr. aMlin after initial evaluation 08/27/16 but did not show up for follow up. He had a Us Hemodialysis Access Fistula Or Graft 08/27/2016 which Showed Velocity elevations through the graft, up to 638 cm/s at the anastomosis. Fistula was widely patent. He presented to ED and was found to have hyperkalemia and urgent Nephrology consultation wa s requested by Dr. Mejia for urgent dialysis given missed dialysis and hyperkalemia with EKG changes. He indicated feeling OK without any nausea, vomiting, chest pain, shortness of breath, leg swelling. He indicated having had some urine output today. Dr. Meyer was apparently contacted by Dr. Mejia and plan was possible declotting. ICU was contacted and plan is to place a temporary dialysis catheter (no ICU beds available ). PMH, PSH, Social history, medications, allergies, labs and imaging reviewed as appropriate. Previous history summarized as above. Prior lab data and imaging reviewed. Old records and labs were reviewed and summarized as above. Significant medical/surgical history: ESRD secondary to Biopsy-proven Diabetic nephropathy. He is dialyzed Saturday an saturday at [place] dialysis unit using right UE AVF (Dr. Meyer). He used to have left upper extremity brachio cephalic fistula which clotted off 10/2013. Right upper extremity brachioc ephalic fistula by Dr. Meyer 02/04 DM2 Secondary hyperparathyroidism Anemia of chronic renal failure Endocarditis Family/social history: There is no family history of kidney disease with close family membe rs being on dialysis at early age. 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 There is remote history of Etoh/recreational drug use. He has no biological children. Father had colon cancer, heart disease. Mother . ROS: Review of systems is as per the history of present illness. Otherwise 14 organ system revie w of systems was done and is negative. Examination: Constitutional: Alert awake and oriented lying flat in bed in no distress. No asterixis. HEENT: No JVD, non icteric sclera. Cardiovascular: S1soft. No friction rub. No S3. No murmur. LUNGS: Effort fair. Scattered rales at bases. Abdominal: Soft. No distension and no mass. There is no rebound tenderness and no guarding. EXT: B/L LE with chronic venous changes. distal lower extremity pulses not palpable Neurological: Alert, awake, oriented. No asterixis. Normal sensorium. Speech fluent. Gait n ot tested. Moves all 4 extremities equally. Skin: Skin is warm and dry. Chronic skin thickening right AVF. Hemodialysis access: Left upper extremity brachiocephalic fistula, clotted Right UE brachiocephalic AVF with bruit and infiltration. Vital Signs: BP 177/76 mmHg | Pulse 92 | Temp(Src) 98.3 F (36.8 C) (Temporal) | Resp 20 | Wt 82.8 kg (182 lb 8.7 oz) | SpO2 100% Data evaluation: Lab Results Component Value Date BUN 87* 09/07/2016 CREATININE 10* 09/07/2016 EGFR 6* 09/07/2016 NA 131* 09/07/2016 K 6.9* 09/07/2016 CL 102 09/07/2016 CO2 17* 09/07/2016 CA 7.7* 09/07/2016 PHOS 4.3 04/30/2016 MG 2.8* 04/30/2016 ALB 3.6 09/07/2016 HGB 10.4* 09/07/2016 Lab Results Component Value Date K 6.9* 09/07/2016 K 4.7 04/30/2016 K 4.7 04/29/2016 Assessment and Recommendations: ESRD on HD Hyperkalemia Clotted AVF Anemia of chronic renal failure BP is Ok. He is clinically minimally hypervolemic. . Anemia is moderate. Temporary HD access has graciously been placed by Dr. Fernie Hopper. Plan to dialyze him tonight using 2 K bath. Plan for assessment tomorrow with Dr. Meyer. The AVF seems to be patent but has significan t infiltration. If resting AVF is planned he would need tunneled CVC placement. I discussed with him and his the concept of hyperkalemia and interaction of BP/volume status/medications in maintaining electrolyte balance. 2 gm Na, 1 gm K, 1 gm PO4, 1 gm/kg protein diet. Please dose all medications for an eGFR of less than 15 ml/min/1.73 m2. No IV contrast studies. No NSAIDS/ADAM 2 inhibitors, Aluminum/magnesium containing antacids, magnesium/phosphate con taining enemas. Fluid restriction 1.5 L in 24 hour period. Strict I/O Daily CMP (including Mg, PO4). Plan of care was discussed with Dr. Mejia and Dr. Hopper and total time spent 70 minutes ( more than 50% in explanation of diagnosis, prognosis, treatment options and coordinating car e). I thank Dr Mejia for giving me the opportunity to take part in his care with multiple compl ex medical problems. Do not hesitate to contact me if you have any questions. COSMO SORIA MD 09/07/2016 Portions of my previous notes have been carried over for continuity of care. He was seen earlier in the day and charting was completed later after rounds. Dictation software, Metaforic, was used which may contain error for similar sounding words. Pe rsonal communication is requested for any clarification. Prognosis guarded in view of multiple comorbid illnesses and ESRD sodium chloride 10 mL Intravenous Q8H documented in this en counter ED Notes Conversion Transaction, Provider Unknown - 09/07/2016 9:49 PM PDTFormatting of this note m ight be different from the original. ED Notes by Anthony Haque RN at 09/07/162148 Author: Anthony Haque RN Service: (none) Author Type: Registered Nurse Filed: 09/07/162148 Date of Service: 09/07/162148 Status: Signed Pearl Glue Drier: Anthony Haque RN (Registered Nurse) RT called for [facility] Tx Anthony Haque RN 09/07/162148 onver quique Transaction, Provider Unknown - 09/07/2016 7:55 PM PDT ED Notes by Anthony Haque RN at 09/07/161954 Author: Anthony Haque RN Service: (none) Author Type: Registered Nurse Filed: 09/07/161956 Date of Service: 09/07/161954 Status: Signed Pearl Glue Drier: Anthony Haque RN (Registered Nurse) Pt states he has not been able to get to dialysis since Saturday due to swelling in his Rt ar m near and around his fistula. Swelling noted in pt's Rt chest and Rt arm. Rt had is dusky. Faint radial pulse noted. Pulse noted in upper arm at fistula. Anthony Haque RN 09/07/161956 Matteo Martinez MD - 09/07/2016 7:52 PM PDTFormatting of this note might be different from the or iginal. ED Provider Notes by Matteo Mejia MD at 09/07/161951 Author: Matteo Mejia MD Service: Emergency Department Author Type: Physician Filed: 09/08/16106 Date of Service: 09/07/161951 Status: Signed Pearl Glue Drier: Matteo Mejia MD (Physician) Procedure Orders: 1. Critical Care [[id number]] ordered by Matteo Mejia MD at 09/08/16105 [facility] Department of Emergency Medicine 8:08 PM History of Present Illness Patient Identification Carol Potter is a 51 y.o. male. Patient information was obtained from patient. History/Exam limitations: none. Patient presented to the Emergency Department by: Car Chief Complaint Chief Complaint Patient presents with Vascular Access Problem "He was supposed to have dialysis today, but his arm is swelled up and his fistula needs surgery" 51 y.o. male presents to ED with chief complaint of vascular access problem. Onset of symp toms was 4 days ago with a worsening course since that time. The symptoms are described to be of moderate severity. The patient has been unable to get dialysis for 5 days becomes his left arm is too swollen. The patient's oceanography teacher is Dr. Timmons, who directed the patient to come to the ED. Patient states that the swelling has been going on for months and has actu ally been improving. Patient also complains of abdominal pain. Nothing worsens or improves s ymptoms, and they do not radiate. Patient denies SOB, fever, diarrhea, or any other symptoms at this time. Patient reports that he has vascular stenosis, and was scheduled for angiopla sty yesterday with Dr. Malin but was unable to make the appointment. Patient was seen in [facility] earlier today and was diagnosed with gastritis. PCP: ANDRY LOFTON Past Medical History Diagnosis Date Hyperlipidemia Hypertension Thyroid disease Anemia Abdominal pain, right upper quadrant 04/13/2012 Dialysis patient (HCC) GI bleed 04/30/2012 from coumadin Walker as ambulation aid Gout Asthma pt not using inhaler any more, no symptoms DVT (deep venous thrombosis) ([facility]) x3 AV fistula ([facility]) lt arm Knee pain, right 07/06/2012 MSSA (methicillin susceptible Staphylococcus aureus) infection 04/11/2012 Anemia due to blood loss 04/30/2012 Amphetamine and other psychostimulant dependence, continuous 04/02/2012 Hyperphosphatemia 05/24/2012 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 Rash and nonspecific skin eruption 04/03/2012 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 Neuromuscular disorder ([facility]) neuropathy Hyperkalemia 11/09/2013 Chronic obstructive asthma with exacerbation ([facility]) 10/27/2013 SOB (shortness of breath) 10/27/2013 Diabetes mellitus type I ([facility]) Past Surgical History Procedure Laterality Date Unlisted procedure arthroscopy shoulder rt , ligaments Superficialization of av fistula Right 03/30/2014 Procedure: AV FISTULA - SUPERFICIALIZATION; Surgeon: Oskar Meyer MD; Location: [facility] MAIN OR; Service: Vascular; Laterality: Right; Av fistula placement Right 02/09/2014 Procedure: AV FISTULA; Surgeon: Oskar Meyer MD; Location: [facility] MAIN OR; Service: Vascul ar; Laterality: Right; Av fistula repair Left 07/11/2012 Procedure: AV FISTULA - GRAFT REPAIR/REVISION; Surgeon: Oskar Meyer MD; Location: [facility] OR; Service: Vascular; Laterality: Left; Superficialization of brachiobasilic fistula and right IJ perm cath insertion Dialysis fistula creation Left 07/11/2012 Procedure: DIALYSIS CATHETER - INSERTION; Surgeon: Oskar Meyer MD; Location: [facility] MAIN O R; Service: Vascular; Laterality: Left; removed dialysis catheter from left neck and plac ed new on in left chest, attempted in right neck but unable to place Catheter removal Right 07/07/2012 Procedure: DIALYSIS CATHETER - REMOVAL; Surgeon: Oskar Meyer MD; Location: [facility] BEDSIDE PROCEDURE; Service: General; Laterality: Right; perm cath Dialysis fistula creation Left 07/07/2012 Procedure: DIALYSIS CATHETER - INSERTION; Surgeon: Oskar Meyer MD; Location: [facility] BEDSID E PROCEDURE; Service: General; Laterality: Left; temporary dialysis catheter Knee arthroscopy Right 07/07/2012 Procedure: KNEE - ARTHROSCOPY; Surgeon: Favio Raza MD; Location: [facility] MAIN OR; S ervice: Orthopedics; Laterality: Right; After 1530 Av fistula placement Left 05/06/2012 Procedure: AV FISTULA; Surgeon: Oskar Meyer MD; Location: [facility] MAIN OR; Service: Vascul ar; Laterality: Left; Left arm possible right Colonoscopy with egd N/A 05/01/2012 Procedure: COLONOSCOPY W/ EGD; Surgeon: John Singleton MD; Location: [facility] ENDOSCOPY; Se rvice: Gastroenterology; Laterality: N/A; Prior to Admission medications Medication Sig Start Date End Date Taking? Authorizing Provider acetaminophen (TYLENOL) 325 MG tablet Take 650 mg by mouth every 6 (six) hours as needed. I ndications: Pain Historical Provider albuterol (PROVENTIL HFA) 108 (90 BASE) MCG/ACT inhaler Inhale 2 puffs into the lungs every 4 (four) hours as needed for Wheezing. Patient taking differently: Inhale 2 puffs into the lungs every 4 (four) hours as needed fo r Wheezing. Took last night 10/28/13 08/27/16 Karri Huff MD allopurinol (ZYLOPRIM) 100 MG tablet Take 100 mg by mouth daily. Indications: Primary Gout CLARENCE Earl amLODIPine (NORVASC) 10 MG tablet Take 10 mg by mouth daily. Historical Provider aspirin 81 MG tablet Take 81 mg by mouth daily. Historical Provider b complex-vitamin c-folic acid (NEPHRO-THU) 0.8 MG TABS Take 1 tablet by mouth daily. Historical Provider budesonide-formoterol (SYMBICORT) 160-4.5 MCG/ACT inhaler Inhale 2 puffs into the lungs 2 ( two) times daily. 04/30/16 05/30/16 Khanh Rangel MD carvedilol (COREG) 3.125 MG tablet Take 3.125 mg by mouth 2 (two) times daily with meals. Historical Provider Cholecalciferol 2000 UNITS TABS Take 1 tablet by mouth daily. Historical Provider fluticasone-salmeterol (ADVAIR DISKUS) 250-50 MCG/DOSE Inhale 1 puff into the lungs 2 (two) times daily. 10/28/13 Karri Huff MD furosemide (LASIX) 20 MG tablet Take 20 mg by mouth daily. Historical Provider levothyroxine (SYNTHROID) 75 MCG tablet Take 75 mcg by mouth every morning before breakfast . Indications: Underactive Thyroid CLARENCE Earl montelukast (SINGULAIR) 10 MG tablet Take 1 tablet by mouth nightly. 10/28/13 10/28/14 Karri Huff MD RENVELA 800 MG tablet take 3 tablets by mouth three times a day WITH MEALS AND 1 TABLET WIT H SNACKS 01/14/14 Juan Timmons MD sodium bicarbonate 650 MG tablet Take 1,300 mg by mouth 2 (two) times daily. Historica l Provider Allergies Allergen Reactions Azithromycin Rash Unknown Lisinopril Other (See Comments) "makes me sweat and knocked me out" Penicillins Other (See Comments) Unknown- not sure 10/08/12: Patient tolerated Ceftriaxone during previous admissions. Social History Social History Marital Status: Spouse Name: Shyanne Number of Children: N/A Years of Education: N/A Occupational History Not on file. Social History Main Topics Smoking status: Former Smoker -- 1.00 packs/day for 23 years Quit date: 04/28/2011 Smokeless tobacco: Never Used Comment: quit 17 yrs ago Alcohol Use: No Drug Use: No Comment: Smokes THC Daily, quit methaamphetamine in mar 2012 after ARF Sexual Activity: Not on file Other Topics Concern Not on file Social History Narrative , LIVES WITH . HAS NO BIOLOGICAL KIDS; 2 STEP KIDS. CURRENTLY UNEMPLOYED, BEFOR E WORKED AT [employer] [place]. Quit METHAMPHETAMINES PER PATIENT after t he ARF in mar 2012. FATHER HAS COLON CANCER, HEART DISEASE, MOTHER 15 YEARS AGO. NO FH KIDNEY PROB LEMS. Family History Problem Relation Age of Onset Heart disease Mother Heart disease Father Diabetes Father Cancer Father colon cancer Review of Systems Constitutional: Positive for: needing dialysis Negative for: fever, chills, fatigue, sweats or weight loss Eyes: Negative for: decreased vision or irritated eyes Nose: Negative for: nosebleed Throat: Negative for: mouth sores Cardiovascular/Respiratory: Positive for: vascular access problem Negative for: chest pain, shortness of breath, cough Gastrointestinal: Negative for: abdominal pain, vomiting, diarrhea, black or bloody stools Genitourinary: Negative for: dysuria, hematuria, urinary problems Musculoskeletal: Negative for: myalgias and arthralgias Skin: Negative for: laceration or lesion Neuro and psych: Negative for: fainting, head injury, seizure, trouble walking Endocrine/Heme/Lymph: Negative for: swollen lymph nodes, easy bruising All systems reviewed and otherwise negative Physical Exam BP 181/80 mmHg | Pulse 91 | Temp(Src) 98.3 F (36.8 C) (Temporal) | Resp 22 | Wt 82.8 kg (182 lb 8.7 oz) | SpO2 100% Vital signs reviewed and patient is hypertensive, otherwise WNL Pulse Oximetry interpretation: Normal General: Alert, in no apparent distress Eyes: Normal inspection, pupils equal and round, non-icteric ENT: Ears normal Nose normal Pharynx normal Neck: Normal inspection Supple No lymphadenopathy No meningismus Cardiovascular: Rate and rhythm normal No murmurs Respiratory: Breath sounds normal bilaterally, few expiratory wheezes Abdomen: Soft, non-tender, non-distended No guarding or rebound] Extremities: Right upper extremity fistula with palpable thrill Right hand is warm and well perfused No erythema noted at fistula site Diffuse right upper extremity edema (x2 months per pt.) Back: Normal inspection Skin: Color normal Warm and dry No rash Neuro: No motor deficit No sensory deficit No confusion Medical Decision Making and Emergency Department Course Records Reviewed Old medical records. Nursing notes. [place] [facility] [place] complaints. ED Department Course 12 Lead ECG - Emergency Physician Interpretation: Rhythm: Sinus Ventricular Rate: 84 OH Interval: Normal ST Segments: Normal T Waves: ITW lead none Significant Q-waves: None Blocks: None Comparison to a prior ECG: Unchanged Nondiagnostic for ischemia. Slightly peaked T waves unclear if this is related to hyperkale titi or not. Only comparison is 2013. Certainly no other cardiac arrhythmia hyperkalemia sign s. Patient is here with dialysis access issues. He has a right upper extremity AV fistula with palpable thrill and neurovascularly intact extremity however dialysis Center has been unabl e to access this for the last 2 sessions. Concern is for fistula malformation versus occlusi on. At this time I do not see signs of infection and patient is hemodynamically stable. Has mild shortness of breath related to underlying COPD/asthma with wheezes on exam. Nothing to suggest significant volume overload. We will obtain a laboratory evaluation and discussed [facility] nephrology. 9:01 PM Lab called with a critical value. Potassium is critically elevated at 6.9. --> Agai n looked that EKG that revealed normal sinus rhythm. Possible slight peaked T waves. QRS is slightly prolonged at 124. --> Immediately ordered calcium gluconate, insulin, glucose to he lp with cardiac membrane stabilization and decreased serum potassium level. Remaining labs show low sodium at 131, low CO2 at 17, elevated glucose at 205, elevated BUN at 87, elevated creatinine at 10, low calcium at 7.7, low A/G at 0.9, low EGFR at 6, low RB Cat 3.37, low HGB at 10.4, low HCT at 30.4, and elevated RDW SD at 50.7. INR is 0.9. --> Ha rapp end-stage renal disease. 9:[address] Soria, oceanography teacher, who recommended medical management and consult with vascular surgery for additional recommendations. 9:[address] Meyer, vascular surgery, who stated that no emergent need for a fi stula gram, and will defer dialysis to nephrology and inpatient team. 9:[address] Soria on conversation with Dr. Meyer. 9:27 PM UA resulted and shows protein at 100, small blood and >500 glucose. 9:[address] Lehman, car park attendant, who states that there are no ICU beds at this time. However with help with temporary dialysis catheter placement if required. ED Medication Administration from 09/07/2016 1908 to 09/07/2016 2336 Date/Time Order Dose Route Action Action by 09/07/20166 calcium gluconate 10 % injection 1,000 mg 1,000 mg Intravenous Given Anthony Haque RN 09/07/20162122 insulin regular (HUMULIN R) injection 10 Units 10 Units Intravenous Given Anthony Haque RN 09/07/20162112 dextrose 50 % solution 25 g 25 g Intravenous Given Anthony Haque RN 09/07/20162154 ipratropium-albuterol (DUO-NEB) 0.5-2.5 mg/3mL nebulizer solution 3 mL 3 mL Nebulization Given Jacey Coon, BERKLEY 9:32 PM Spoke with transfer center, who reviewed admission protocol in reported the patient can go to the floor with temporary dialysis catheter in place as well as hyperkalemia. 9:[address] Dean, hospitalist, who will accept the patient for admission. Dr. Beltran wetzel (ICU team) will place a central line for dialysis in the ED and will then go to the [facility] to receive dialysis tonight per nephrology. 10:25 PM Central line is being placed. Patient tolerated this procedure well. Has remained hemodynamically stable without cardiac arrhythmia. 11:36 PM Patient moved off the floor. Laboratory Evaluation Labs Reviewed CBC W/AUTO DIFF (REFLEX TO MANUAL) - Abnormal; Notable for the following: RBC 3.37 (*) HGB 10.4 (*) HCT 30.4 (*) RDW SD 54.7 (*) Neutrophils Absolute 9.43 (*) Bands Manual 1.21 (*) Lymphocytes Absolute 0.22 (*) All other components within normal limits COMPREHENSIVE METABOLIC PANEL - Abnormal; Notable for the following: SODIUM 131 (*) POTASSIUM 6.9 (*) CO2 17 (*) GLUCOSE 205 (*) BUN 87 (*) CREATININE 10 (*) CALCIUM 7.7 (*) A/G 0.9 (*) EGFR 6 (*) All other components within normal limits URINALYSIS (REFLEX TO MICROSCOPIC/REFLEX TO CULTURE) - Abnormal; Notable for the following: PROTEIN 100 (*) BLOOD SMALL (*) GLUCOSE >500 (*) All other components within normal limits POCT GLUCOSE - Abnormal; Notable for the following: GLUCOSE,POC SCREEN 223 (*) All other components within normal limits PROTIME-INR Results Procedure Component Value Units Date/Time POCT glucose [[id number]] (Abnormal) Collected: 09/07/162139 GLUCOSE,POC SCREEN 223 (H) mg/dL Updated: 09/07/162142 Urinalysis (reflex to micro/reflex to culture) [[id number]] (Abnormal) Collected: 09/07 2100 Specimen Information: Urine, Clean Catch Updated: 09/07/162124 COLOR UA STRAW CLARITY CLEAR Specific Shiro, UA 1.008 LEUKOCYTE ESTERASE NEGATIVE NITRITE NEGATIVE UROBILINOGEN NORMAL mg/dL PROTEIN 100 (A) mg/dL PH,URINE 6.0 BLOOD SMALL (A) KETONES NEGATIVE mg/dL BILIRUBIN NEGATIVE GLUCOSE >500 (A) mg/dL WBC 0-2 /hpf RBC NONE SEEN /hpf BACTERIA NONE SEEN EPITHELIAL 26-49 /lpf Comprehensive metabolic panel [[id number]] (Abnormal) Collected: 09/07/162022 Specimen Information: Blood Updated: 09/07/162057 SODIUM 131 (L) mmol/L POTASSIUM 6.9 (HH) mmol/L CHLORIDE 102 mmol/L CO2 17 (L) mmol/L ANION GAP AGAP 18 mmol/L GLUCOSE 205 (H) mg/dL BUN 87 (H) mg/dL CREATININE 10 (H) mg/dL BUN/CREAT 9 CALCIUM 7.7 (L) mg/dL TOTAL PROTEIN 7.8 g/dL Albumin 3.6 g/dL GLOBULIN 4.2 g/dL A/G 0.9 (L) TBIL 0.6 mg/dL ALK PHOS 85 U/L AST 25 U/L ALT 37 U/L EGFR 6 (L) mL/min/1.73m2 CBC with differential [[id number]] (Abnormal) Collected: 09/07/162022 Specimen Information: Blood Updated: 09/07/162047 WBC 10.97 K/uL RBC 3.37 (L) M/uL HGB 10.4 (L) g/dL HCT 30.4 (L) % MCV 90.1 fl MCH 30.8 pg MCHC 34.1 g/dL RDW SD 54.7 (H) fl PLT 224 K/uL MPV 6.5 fl DIFF TYPE MANUAL Neutrophils Manual 86 % Bands 11 % Lymphocytes Manual 2 % Monocytes Manual 1 % Neutrophils Absolute 9.43 (H) K/uL Bands Manual 1.21 (H) K/uL Lymphocytes Absolute 0.22 (L) K/uL Monocytes Absolute 0.11 K/uL Platelet Estimate ADEQUATE MORPHOLOGY RBC AND PLT MORPHOLOGY APPEAR NORMAL Protime-INR [[id number]] Collected: 09/07/162022 Specimen Information: Blood Updated: 09/07/162044 INR 0.9 Available Labs reviewed and interpreted by me. Radiology Evaluation Imaging Results None ED Diagnoses Final diagnoses ESRD (end stage renal disease) on dialysis (HCC) Hyperkalemia Arteriovenous fistula occlusion, initial encounter (HCC) Anemia, unspecified type Wheezes Hyponatremia Hematuria Disposition: ED Disposition Admit/Observation Bed request special needs: Dialysis Diagnosis?: ESRD, hyperkalemia Procedures Additional Documentation Critical Care Performed by: MATTEO MEJIA Authorized by: ARTIS DEAN Critical care provider statement: Critical care time (minutes): 45 Critical care time was exclusive of: Separately billable procedures and treating other p atients Critical care was necessary to treat or prevent imminent or life-threatening deterioratio n of the following conditions: Cardiac failure, renal failure and metabolic crisis Critical care was time spent personally by me on the following activities: Obtaining his tory from patient or surrogate, examination of patient, evaluation of patient's response to treatment, discussions with consultants, development of treatment plan with patient or surro gate, review of old charts, re-evaluation of patient's condition, ordering and review of lab oratory studies and ordering and performing treatments and interventions Attending Note: Documentation assistance provided by Kristi Briceno (Scribe). Information recorded by the scribe has been reviewed and validated by me. I ag ree with its contents. Signed by: Cande Duran 09/07/2016 11:52 PM MD Matteo Gifford MD 09/08/16 0107 documented in this en counter Miscellaneous Notes Op Note - Jimenez Garnica MD - 09/11/2016 7:36 PM PDT Brief Op Note by Jimenez Garnica MD PhD at 09/11/161935 Author: Jimenez Garnica MD PhD Service: Interventional Radiology Author Type: Physician Filed: 09/11/161947 Date of Service: 09/11/161935 Status: Signed Pearl Glue Drier: Jimenez Garnica MD PhD (Physician) Interventional Radiology Post Procedure Note Patient Name: Carol Potter Date of : 1965 Procedure(s): Central venogram via right arm and left leg accesses. Recanalization, angiopl asty and stenting right subclavian and brachiocephalic veins. Pre OP Diagnosis: Central occlusion Post OP Diagnosis: same Interventional Radiologist: Jimenez Garnica MD Anesthesia Type: IV Conscious Sedation with Fentanyl and Versed. Findings: Simultaneous contrast injection from sheaths in right arm brachiobasilic fistula and left femoral sheath demonstrate approximately 8 cm occlusion of right subclavian/brachio cephalic veins. Initial unsuccessful attempt from femoral sheath with catheter wire directin g toward left brachiocephalic vein. Subsequent successful antegrade crossing from right axil perry vein. During recanalization, it was noted that contrast was present in the pericardium and Dr. Posada was consulted and very graciously placed a pericardial drain. Subsequently, p rolonged ballooning of right subclavian and brachiocephalic veins and subsequent stent place ments of 14mm x 60mm central and 12 mm x 40 mm peripheral self expanding stents in the brach iocephalic and subclavian veins, respectively. Specimens: none EBL: 175 cc pericardial Complications: Hemopericardium treated with pericardial drain per Dr. Posada. PLAN: Dialysis. If needed, stents can be redilated at a later date following resolution of hemopericardium. A full report will follow in the imaging section. Jimenez Garnica MD, PhD Interventional Radiologist and Vascular Medicine Specialist p Note - Onelia Meyer ae, MD - 09/09/2016 9:12 AM PDTFormatting of this note might be different from the origin al. 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 Procedure(s): Ultrasound guided access of right basilic vein Right arm fistulagram Angioplasty of right subclavian vein using 3x40 mm and 8x40 mm angioplasty balloons Left arm venogram Ultrasound guided access of right femoral vein Placement of 35 cm tunneled dialysis catheter via right femoral vein under fluoroscopic guidance Surgeon: Oskar Meyer MD Casino Slot Supervisor(s): None Anesthesia: Moderate sedation and Local anesthesia Estimated Blood Loss: Less Than 10 ml (Minimal) Other: Contrast: 55 ml Sedation time: 40 min Versed: 0.5 mg Fentanyl: 25 mcg Indications: See pre-operative history and physical. Findings: Right brachiobasilic fistula widely patent without significant stenosis. Right subclavian vein was occluded just proximal to junction with cephalic vein. Attempted crossi ng and angioplasty but right innominate vein was also occluded. Left arm venogram done whic h shows occlusion of left subclavian vein near origin with no filling easily seen in left in nominate vein. Appears to have SVC occlusion but difficult to tell due to poor flow in left upper extremity veins. Therefore, right groin tunneled catheter placed with tip in IVC. W ill need CT venogram of chest to better evaluate central veins. Complications: Inability to cross central occlusions. Condition: Stable See dictated operative report for full details. Oskar Meyer MD 09/09/2016 documented in this encoun ter Plan of Treatment Not on filedocumented as of this encounter Procedures + +--------+ + + + | Procedure Name | Priori | Date/Time | Associated Diagnosis | Comments | | | ty | | | | + +--------+ + + + | POC GLUCOSE | Routin | 09/15/2016 | | Results for this | | | e | 11:26 AM | | procedure are in the | | | | PDT | | results section. | + +--------+ + + + | POC GLUCOSE | Routin | 09/15/2016 | | Results for this | | | e | 5:35 AM | | procedure are in the | | | | PDT | | results section. | + +--------+ + + + | EXTERNAL LAB: CBC | Routin | 09/15/2016 | | Results for this | | | e | 5:26 AM | | procedure are in the | | | | PDT | | results section. | + +--------+ + + + | PHOSPHORUS | Routin | 09/15/2016 | | Results for this | | | e | 5:26 AM | | procedure are in the | | | | PDT | | results section. | + +--------+ + + + | MAGNESIUM | Routin | 09/15/2016 | | Results for this | | | e | 5:26 AM | | procedure are in the | | | | PDT | | results section. | + +--------+ + + + | ALBUMIN | Routin | 09/15/2016 | | Results for this | | | e | 5:26 AM | | procedure are in the | | | | PDT | | results section. | + +--------+ + + + | BASIC METABOLIC | Routin | 09/15/2016 | | Results for this | | PANEL | e | 5:26 AM | | procedure are in the | | | | PDT | | results section. | + +--------+ + + + | POC GLUCOSE | Routin | 09/14/2016 | | Results for this | | | e | 9:09 PM | | procedure are in the | | | | PDT | | results section. | + +--------+ + + + | POC GLUCOSE | Routin | 09/14/2016 | | Results for this | | | e | 4:22 PM | | procedure are in the | | | | PDT | | results section. | + +--------+ + + + | POC GLUCOSE | Routin | 09/14/2016 | | Results for this | | | e | 11:44 AM | | procedure are in the | | | | PDT | | results section. | + +--------+ + + + | ECHO LIMITED | Routin | 09/14/2016 | | Results for this | | | e | 7:30 AM | | procedure are in the | | | | PDT | | results section. | + +--------+ + + + | EXTERNAL LAB: CBC | Routin | 09/14/2016 | | Results for this | | | e | 5:40 AM | | procedure are in the | | | | PDT | | results section. | + +--------+ + + + | PHOSPHORUS | Routin | 09/14/2016 | | Results for this | | | e | 5:40 AM | | procedure are in the | | | | PDT | | results section. | + +--------+ + + + | MAGNESIUM | Routin | 09/14/2016 | | Results for this | | | e | 5:40 AM | | procedure are in the | | | | PDT | | results section. | + +--------+ + + + | ALBUMIN | Routin | 09/14/2016 | | Results for this | | | e | 5:40 AM | | procedure are in the | | | | PDT | | results section. | + +--------+ + + + | BASIC METABOLIC | Routin | 09/14/2016 | | Results for this | | PANEL | e | 5:40 AM | | procedure are in the | | | | PDT | | results section. | + +--------+ + + + | POC GLUCOSE | Routin | 09/14/2016 | | Results for this | | | e | 5:25 AM | | procedure are in the | | | | PDT | | results section. | + +--------+ + + + | POC GLUCOSE | Routin | 09/13/2016 | | Results for this | | | e | 9:11 PM | | procedure are in the | | | | PDT | | results section. | + +--------+ + + + | POC GLUCOSE | Routin | 09/13/2016 | | Results for this | | | e | 4:28 PM | | procedure are in the | | | | PDT | | results section. | + +--------+ + + + | POC GLUCOSE | Routin | 09/13/2016 | | Results for this | | | e | 12:19 PM | | procedure are in the | | | | PDT | | results section. | + +--------+ + + + | ECHO LIMITED | Routin | 09/13/2016 | | Results for this | | | e | 8:28 AM | | procedure are in the | | | | PDT | | results section. | + +--------+ + + + | EXTERNAL LAB: CBC | Routin | 09/13/2016 | | Results for this | | | e | 7:09 AM | | procedure are in the | | | | PDT | | results section. | + +--------+ + + + | PHOSPHORUS | Routin | 09/13/2016 | | Results for this | | | e | 7:09 AM | | procedure are in the | | | | PDT | | results section. | + +--------+ + + + | MAGNESIUM | Routin | 09/13/2016 | | Results for this | | | e | 7:09 AM | | procedure are in the | | | | PDT | | results section. | + +--------+ + + + | HEMOGLOBIN A1C | Routin | 09/13/2016 | | Results for this | | | e | 7:09 AM | | procedure are in the | | | | PDT | | results section. | + +--------+ + + + | RENAL FUNCTION PANEL | Routin | 09/13/2016 | | Results for this | | | e | 7:09 AM | | procedure are in the | | | | PDT | | results section. | + +--------+ + + + | EXTERNAL LAB: CBC | Routin | 09/12/2016 | | Results for this | | | e | 7:22 AM | | procedure are in the | | | | PDT | | results section. | + +--------+ + + + | MAGNESIUM | Routin | 09/12/2016 | | Results for this | | | e | 7:22 AM | | procedure are in the | | | | PDT | | results section. | + +--------+ + + + | RENAL FUNCTION PANEL | Routin | 09/12/2016 | | Results for this | | | e | 7:22 AM | | procedure are in the | | | | PDT | | results section. | + +--------+ + + + | US GUIDED VASCULAR | Routin | 09/11/2016 | | Results for this | | ACCESS | e | 8:17 PM | | procedure are in the | | | | PDT | | results section. | + +--------+ + + + | IR VENOGRAM | Routin | 09/11/2016 | | Results for this | | UPPER/LOWER | e | 8:00 PM | | procedure are in the | | EXTREMITY | | PDT | | results section. | + +--------+ + + + | IR | Routin | 09/11/2016 | | Results for this | | ANGIOPLASTY/ATHERECT | e | 8:00 PM | | procedure are in the | | COURT/STENT | | PDT | | results section. | + +--------+ + + + | ECHO LIMITED | Routin | 09/11/2016 | | Results for this | | | e | 5:52 PM | | procedure are in the | | | | PDT | | results section. | + +--------+ + + + | CV CARDIAC PROCEDURE | Routin | 09/11/2016 | | Results for this | | | e | 5:35 PM | | procedure are in the | | | | PDT | | results section. | + +--------+ + + + | ECHO COMPLETE | Routin | 09/11/2016 | | Results for this | | | e | 9:35 AM | | procedure are in the | | | | PDT | | results section. | + +--------+ + + + | EXTERNAL LAB: CBC | Routin | 09/11/2016 | | Results for this | | | e | 6:27 AM | | procedure are in the | | | | PDT | | results section. | + +--------+ + + + | PHOSPHORUS | Routin | 09/11/2016 | | Results for this | | | e | 6:27 AM | | procedure are in the | | | | PDT | | results section. | + +--------+ + + + | MAGNESIUM | Routin | 09/11/2016 | | Results for this | | | e | 6:27 AM | | procedure are in the | | | | PDT | | results section. | + +--------+ + + + | COMPREHENSIVE | Routin | 09/11/2016 | | Results for this | | METABOLIC PANEL | e | 6:27 AM | | procedure are in the | | | | PDT | | results section. | + +--------+ + + + | EXTERNAL LAB: CBC | Routin | 09/10/2016 | | Results for this | | | e | 1:42 PM | | procedure are in the | | | | PDT | | results section. | + +--------+ + + + | PHOSPHORUS | Routin | 09/10/2016 | | Results for this | | | e | 1:42 PM | | procedure are in the | | | | PDT | | results section. | + +--------+ + + + | MAGNESIUM | Routin | 09/10/2016 | | Results for this | | | e | 1:42 PM | | procedure are in the | | | | PDT | | results section. | + +--------+ + + + | COMPREHENSIVE | Routin | 09/10/2016 | | Results for this | | METABOLIC PANEL | e | 1:42 PM | | procedure are in the | | | | PDT | | results section. | + +--------+ + + + | CT CHEST W CONTRAST | Routin | 09/10/2016 | | Results for this | | | e | 12:20 PM | | procedure are in the | | | | PDT | | results section. | + +--------+ + + + | CT CHEST W CONTRAST | Routin | 09/09/2016 | | Results for this | | | e | 11:30 AM | | procedure are in the | | | | PDT | | results section. | + +--------+ + + + | IR VENOGRAM | Routin | 09/09/2016 | | Results for this | | UPPER/LOWER | e | 9:25 AM | | procedure are in the | | EXTREMITY | | PDT | | results section. | + +--------+ + + + | IR INJECTION | Routin | 09/09/2016 | | Results for this | | DIALYSIS CIRCUIT | e | 9:25 AM | | procedure are in the | | | | PDT | | results section. | + +--------+ + + + | IR REMOVAL TUNNELED | Routin | 09/09/2016 | | Results for this | | CV CATH WO PORT | e | 9:25 AM | | procedure are in the | | | | PDT | | results section. | + +--------+ + + + | IR PLACEMENT | Routin | 09/09/2016 | | Results for this | | TUNNELED CENTRAL | e | 9:25 AM | | procedure are in the | | VENOUS CATHETER > 5 | | PDT | | results section. | | YEARS | | | | | + +--------+ + + + | US GUIDED VASCULAR | Routin | 09/09/2016 | | Results for this | | ACCESS | e | 9:25 AM | | procedure are in the | | | | PDT | | results section. | + +--------+ + + + | POC GLUCOSE | Routin | 09/08/2016 | | Results for this | | | e | 3:48 PM | | procedure are in the | | | | PDT | | results section. | + +--------+ + + + | POC GLUCOSE | Routin | 09/08/2016 | | Results for this | | | e | 11:49 AM | | procedure are in the | | | | PDT | | results section. | + +--------+ + + + | EXTERNAL LAB: CBC | Routin | 09/08/2016 | | Results for this | | | e | 5:34 AM | | procedure are in the | | | | PDT | | results section. | + +--------+ + + + | PHOSPHORUS | Routin | 09/08/2016 | | Results for this | | | e | 5:34 AM | | procedure are in the | | | | PDT | | results section. | + +--------+ + + + | MAGNESIUM | Routin | 09/08/2016 | | Results for this | | | e | 5:34 AM | | procedure are in the | | | | PDT | | results section. | + +--------+ + + + | CK TOTAL | Routin | 09/08/2016 | | Results for this | | | e | 5:34 AM | | procedure are in the | | | | PDT | | results section. | + +--------+ + + + | COMPREHENSIVE | Routin | 09/08/2016 | | Results for this | | METABOLIC PANEL | e | 5:34 AM | | procedure are in the | | | | PDT | | results section. | + +--------+ + + + | POC GLUCOSE | Routin | 09/08/2016 | | Results for this | | | e | 5:10 AM | | procedure are in the | | | | PDT | | results section. | + +--------+ + + + | ECG 12 LEAD | Routin | 09/08/2016 | | Results for this | | | e | 12:03 AM | | procedure are in the | | | | PDT | | results section. | + +--------+ + + + | XR CHEST 1 VIEW | Routin | 09/07/2016 | | Results for this | | | e | 11:52 PM | | procedure are in the | | | | PDT | | results section. | + +--------+ + + + | POC GLUCOSE | Routin | 09/07/2016 | | Results for this | | | e | 11:47 PM | | procedure are in the | | | | PDT | | results section. | + +--------+ + + + | POC GLUCOSE | Routin | 09/07/2016 | | Results for this | | | e | 9:40 PM | | procedure are in the | | | | PDT | | results section. | + +--------+ + + + | URINALYSIS, REFLEX | Routin | 09/07/2016 | | Results for this | | MICROSCOPIC AND/OR | e | 9:00 PM | | procedure are in the | | CULTURE | | PDT | | results section. | + +--------+ + + + | ECG 12 LEAD | Routin | 09/07/2016 | | Results for this | | | e | 8:47 PM | | procedure are in the | | | | PDT | | results section. | + +--------+ + + + | EXTERNAL LAB: CBC | Routin | 09/07/2016 | | Results for this | | | e | 8:23 PM | | procedure are in the | | | | PDT | | results section. | + +--------+ + + + | PROTIME INR | Routin | 09/07/2016 | | Results for this | | | e | 8:23 PM | | procedure are in the | | | | PDT | | results section. | + +--------+ + + + | COMPREHENSIVE | Routin | 09/07/2016 | | Results for this | | METABOLIC PANEL | e | 8:23 PM | | procedure are in the | | | | PDT | | results section. | + +--------+ + + + documented in this encounter Results POC Glucose (09/15/2016 11:26 AM PDT) + + + + + + | Component | Value | Ref Range | Performed | Pathologist | | | | | At | Signature | + + + + + + | Glucose, | 152 (H)Comment: Testing | 65 - 99 mg/dL | EXTERNAL | | | Fingerstick | performed at [facility] [place] | | LAB | | | | [address];[place] | | | | | | [address] | | | | + + + + + + + + | Specimen | + + | | + + + +---------+ + + | Performing | Address | City/State/Zipcode | Phone Number | | Organization | | | | + +---------+ + + | EXTERNAL LAB | | | | + +---------+ + + POC Glucose (09/15/2016 5:35 AM PDT) + + + + + + | Component | Value | Ref Range | Performed | Pathologist | | | | | At | Signature | + + + + + + | Glucose, | 137 (H)Comment: Testing | 65 - 99 mg/dL | EXTERNAL | | | Fingerstick | performed at [facility] [place] | | LAB | | | | [address];[place] | | | | | | [address] | | | | + + + + + + + + | Specimen | + + | | + + + +---------+ + + | Performing | Address | City/State/Zipcode | Phone Number | | Organization | | | | + +---------+ + + | EXTERNAL LAB | | | | + +---------+ + + External Lab: CBC (09/15/2016 5:26 AM PDT) + + + + + + | Component | Value | Ref Range | Performed | Pathologist | | | | | At | Signature | + + + + + + | WBC | 10.76Comment: Testing | 3.80 - 11.00 | EXTERNAL | | | | performed at [facility], [address] | LAB | | | [address], | | | | | | [place] [address] | | | | + + + + + + | Non- | 2.86 (L)Comment: Testing | 4.20 - 5.70 | EXTERNAL | | | Red Blood | performed at [facility], [address] | [address] | LAB | | | Cells | [address], | | | | | Counted | [place] [address] | | | | + + + + + + | Hemoglobin | 8.7 (L)Comment: Testing | 13.2 - 17.0 | EXTERNAL | | | | performed at [facility], [address] | g/dL | LAB | | | | [address], | | | | | | [place] [address] | | | | + + + + + + | Hematocrit, | 25.9 (L)Comment: Testing | 39.0 - 50.0 % | EXTERNAL | | | POC | performed at [facility], [address] | | LAB | | | | [address], | | | | | | [place] [address] | | | | + + + + + + | MCV | 90.4Comment: Testing | 80.0 - 100.0 fl | EXTERNAL | | | | performed at [facility], [address] | | LAB | | | | [address], | | | | | | [place] [address] | | | | + + + + + + | MCH | 30.5Comment: Testing | 27.0 - 34.0 pg | EXTERNAL | | | | performed at [facility], [address] | | LAB | | | | [address], | | | | | | [place] [address] | | | | + + + + + + | MCHC | 33.7Comment: Testing | 32.0 - 35.5 | EXTERNAL | | | | performed at [facility], [address] | g/dL | LAB | | | | [address], | | | | | | [place] [address] | | | | + + + + + + | RDW-CV | 54.3 (H)Comment: Testing | 37 - 53 fl | EXTERNAL | | | | performed at [facility], [address] | | LAB | | | | [address], | | | | | | [place] [address] | | | | + + + + + + | Platelet | 279Comment: Testing | 150 - 400 K/uL | EXTERNAL | | | Count | performed at [facility], [address] | | LAB | | | Plasma | [address], | | | | | | [place] [address] | | | | + + + + + + | MPV | 7.1Comment: Testing | fl | EXTERNAL | | | | performed at [facility], [address] | | LAB | | | | [address], | | | | | | [place] [address] | | | | + + + + + + | Differentia | AUTOMATEDComment: | | EXTERNAL | | | l Type | Testing performed at | | LAB | | | | [facility], [address] | | | | | | [place] | | | | | | [address] | | | | + + + + + + | % Segmented | 73.44Comment: Testing | % | EXTERNAL | | | | performed at [facility], [address] | | LAB | | | Neutrophils | [address], | | | | | | [place] [address] | | | | + + + + + + | % | 8.76Comment: Testing | % | EXTERNAL | | | Lymphocytes | performed at [facility], [address] | | LAB | | | | [address], | | | | | | [place] [address] | | | | + + + + + + | % Monocytes | 13.23Comment: Testing | % | EXTERNAL | | | | performed at [facility], [address] | | LAB | | | | [address], | | | | | | [place] [address] | | | | + + + + + + | % | 3.62Comment: Testing | % | EXTERNAL | | | Eosinophils | performed at [facility], [address] | | LAB | | | | [address], | | | | | | [place] [address] | | | | + + + + + + | % Basophils | 0.95Comment: Testing | % | EXTERNAL | | | | performed at [facility], [address] | | LAB | | | | [address], | | | | | | [place] [address] | | | | + + + + + + | Absolute | 7.90 (H)Comment: Testing | 1.90 - 7.40 | EXTERNAL | | | Segmented | performed at [facility], [address] | [address] | LAB | | | Neutrophils | [address], | | | | | | [place] [address] | | | | + + + + + + | Absolute | 0.94 (L)Comment: Testing | 1.00 - 3.90 | EXTERNAL | | | Lymphocytes | performed at [facility], [address] | [address] | LAB | | | | [address], | | | | | | [place] [address] | | | | + + + + + + | Absolute | 1.42 (H)Comment: Testing | 0.00 - 0.80 | EXTERNAL | | | Monocytes | performed at [facility], [address] | [address] | LAB | | | | [address], | | | | | | [place] [address] | | | | + + + + + + | Absolute | 0.39Comment: Testing | 0.00 - 0.50 | EXTERNAL | | | Eosinophils | performed at [facility], [address] | [address] | LAB | | | | [address], | | | | | | [place] [address] | | | | + + + + + + | Absolute | 0.10Comment: Testing | 0.00 - 0.10 | EXTERNAL | | | Basophils | performed at [facility], [address] | K[address] | LAB | | | | [address], | | | | | | [place] [address] | | | | + + + + + + + + | Specimen | + + | Blood specimen | | (specimen) | + + + +---------+ + + | Performing | Address | City/State/Zipcode | Phone Number | | Organization | | | | + +---------+ + + | EXTERNAL LAB | | | | + +---------+ + + Phosphorus (09/15/2016 5:26 AM PDT) + + + + + + | Component | Value | Ref Range | Performed | Pathologist | | | | | At | Signature | + + + + + + | PHOSPHORUS | 3.0Comment: Testing | 2.3 - 4.8 mg/dL | EXTERNAL | | | | performed at [facility], [address] | | LAB | | | | [address], | | | | | | [place] [address] | | | | + + + + + + + + | Specimen | + + | Blood specimen | | (specimen) | + + + +---------+ + + | Performing | Address | City/State/Zipcode | Phone Number | | Organization | | | | + +---------+ + + | EXTERNAL LAB | | | | + +---------+ + + Magnesium (09/15/2016 5:26 AM PDT) + + + + + + | Component | Value | Ref Range | Performed | Pathologist | | | | | At | Signature | + + + + + + | Magnesium | 2.7 (H)Comment: Testing | 1.7 - 2.4 mg/dL | EXTERNAL | | | | performed at [facility], [address] | | LAB | | | | [address], | | | | | | [place] [address] | | | | + + + + + + + + | Specimen | + + | Blood specimen | | (specimen) | + + + +---------+ + + | Performing | Address | City/State/Zipcode | Phone Number | | Organization | | | | + +---------+ + + | EXTERNAL LAB | | | | + +---------+ + + Albumin (09/15/2016 5:26 AM PDT) + + + + + + | Component | Value | Ref Range | Performed | Pathologist | | | | | At | Signature | + + + + + + | Albumin | 2.6 (L)Comment: Testing | 3.6 - 5.0 g/dL | EXTERNAL | | | | performed at [facility], [address] | | LAB | | | | [address], | | | | | | [place] [address] | | | | + + + + + + + + | Specimen | + + | | + + + +---------+ + + | Performing | Address | City/State/Zipcode | Phone Number | | Organization | | | | + +---------+ + + | EXTERNAL LAB | | | | + +---------+ + + Basic Metabolic Panel (09/15/2016 5:26 AM PDT) + + + + + + | Component | Value | Ref Range | Performed | Pathologist | | | | | At | Signature | + + + + + + | Na | 134 (L)Comment: Testing | 135 - 145 | EXTERNAL | | | | performed at [facility], [address] | mmol/L | LAB | | | | [address], | | | | | | [place] [address] | | | | + + + + + + | K | 4.6Comment: Testing | 3.5 - 4.9 | EXTERNAL | | | | performed at [facility], [address] | mmol/L | LAB | | | | [address], | | | | | | [place] [address] | | | | + + + + + + | Cl | 97 (L)Comment: Testing | 99 - 109 mmol/L | EXTERNAL | | | | performed at [facility], [address] | | LAB | | | | [address], | | | | | | [place] [address] | | | | + + + + + + | CO2 | 28Comment: Testing | 23 - 32 mmol/L | EXTERNAL | | | | performed at [facility], [address] | | LAB | | | | [address], | | | | | | [place] [address] | | | | + + + + + + | Anion Gap | 14Comment: Testing | 5 - 20 mmol/L | EXTERNAL | | | | performed at [facility], [address] | | LAB | | | | [address], | | | | | | [place] [address] | | | | + + + + + + | Glucose, | 126 (H)Comment: Testing | 65 - 99 mg/dL | EXTERNAL | | | Fasting | performed at [facility], [address] | | LAB | | | | [address], | | | | | | [place] [address] | | | | + + + + + + | BUN | 38 (H)Comment: Testing | 8 - 25 mg/dL | EXTERNAL | | | | performed at [facility], [address] | | LAB | | | [address], | | | | | | [place] [address] | | | | + + + + + + | Creatinine | 6.0 (H)Comment: Testing | 0.70 - 1.30 | EXTERNAL | | | | performed at [facility], [address] | mg/dL | LAB | | | | [address], | | | | | | [place] [address] | | | | + + + + + + | BUN/Creatin | 6Comment: Testing | | EXTERNAL | | | ine Ratio | performed at [facility], [address] | | LAB | | | | [address], | | | | | | [place] [address] | | | | + + + + + + | Calcium | 8.4 (L)Comment: Testing | 8.5 - 10.5 | EXTERNAL | | | | performed at [facility], [address] | mg/dL | LAB | | | | [address], | | | | | | [place] [address] | | | | + + + [...] | | | | | [place] [address] | | | | + + + + + + + + | Specimen | + + | | + + + +---------+ + + | Performing | Address | City/State/Zipcode | Phone Number | | Organization | | | | + +---------+ + + | EXTERNAL LAB | | | | + +---------+ + + POC Glucose (09/14/2016 9:09 PM PDT) + + + + + + | Component | Value | Ref Range | Performed | Pathologist | | | | | At | Signature | + + + + + + | Glucose, | 222 (H)Comment: Testing | 65 - 99 mg/dL | EXTERNAL | | | Fingerstick | performed at [facility] [place] | | LAB | | | | [address];[place] | | | | | | [address] | | | | + + + + + + + + | Specimen | + + | | + + + +---------+ + + | Performing | Address | City/State/Zipcode | Phone Number | | Organization | | | | + +---------+ + + | EXTERNAL LAB | | | | + +---------+ + + POC Glucose (09/14/2016 4:22 PM PDT) + + + + + + | Component | Value | Ref Range | Performed | Pathologist | | | | | At | Signature | + + + + + + | Glucose, | 124 (H)Comment: Testing | 65 - 99 mg/dL | EXTERNAL | | | Fingerstick | performed at [facility] [place] | | LAB | | | | [address];[place], [place] | | | | | | [address] | | | | + + + + + + + + | Specimen | + + | | + + + +---------+ + + | Performing | Address | City/State/Zipcode | Phone Number | | Organization | | | | + +---------+ + + | EXTERNAL LAB | | | | + +---------+ + + POC Glucose (09/14/2016 11:44 AM PDT) + + + + + + | Component | Value | Ref Range | Performed | Pathologist | | | | | At | Signature | + + + + + + | Glucose, | 148 (H)Comment: Testing | 65 - 99 mg/dL | EXTERNAL | | | Fingerstick | performed at [facility] [place] | | LAB | | | | [address];[place], [place] | | | | | | [address] | | | | + + + + + + + + | Specimen | + + | | + + + +---------+ + + | Performing | Address | City/State/Zipcode | Phone Number | | Organization | | | | + +---------+ + + | EXTERNAL LAB | | | | + +---------+ + + Echo Limited (09/14/2016 7:30 AM PDT) + + | Specimen | + + | | + + + + + | Impressions | Performed At | + + + | 1. There is a trivial pericardial effusion present. 2. Pleural | | | effusion present. | | + + + + + + | Narrative | Performed At | + + + | Patient Name: CAROL POTTER Date of : 1965 | | | Performing Physician: Flory Razo MD | | | | | | INDICATIONS check effusion CONCLUSIONS | | | 1. There is a trivial pericardial effusion present. 2. Pleural | | | effusion present. FINDINGS -------- ECG rhythm: Sinus rhythm. | | | Study: A limited 2-dimensional transthoracic echocardiogram with | | | limited spectral and color flow Doppler was performed. Study: This | | | was a technically adequate study. Pericardium: There is a trivial | | | pericardial effusion present. Pericardium: Pleural effusion present. | | | MEASUREMENTS Manager Hvac: SHIRA Authenticated by: | | | Flory Razo MD Report Date/Time: 09-14-2016 15:01:49 | | + + + + + | Procedure Note | + + | Néstor, Rad Conversion - 02/04/2019 10:13 PM PDT Patient Name: Aleisha POTTER | | : 1965 Performing Physician: Flory Razo | | INDICATIONS c | | heck effusion CONCLUSIONS 1. There is a trivial pericardial effusion | | present.2. Pleural effusion present. FINDINGS--------ECG rhythm: Sinus rhythm.Study: A | | limited 2-dimensional transthoracic echocardiogram with limited spectral and color flow | | Doppler was performed.Study: This was a technically adequate study.Pericardium: There is | | a trivial pericardial effusion present.Pericardium: Pleural effusion present. | | MEASUREMENTS Manager Hvac: GDAuthenticated by: Flory Razo MDR[place]ort | | Date/Time: 09-14-2016 15:01:49 IMPRESSION: 1. There is a trivial pericardial effusion | | present.2. Pleural effusion present. | | | |CONCLUSIONS | | | |1. There is a trivial pericardial effusion present. | |2. Pleural effusion present. | | | |FINDINGS | |-------- | |ECG rhythm: Sinus rhythm. | |Study: A limited 2-dimensional transthoracic echocardiogram with limited spectral and color flow Doppler was performed. | |Study: This was a technically adequate study. | |Pericardium: There is a trivial pericardial effusion present. | |Pericardium: Pleural effusion present. | | | |MEASUREMENTS | | | | | |Manager Hvac: GD | |Authenticated by: Flory Razo MD | |Report Date/Time: 09-14-2016 15:01:49 | | | |IMPRESSION: | |1. There is a trivial pericardial effusion present. | |2. Pleural effusion present. | + + External Lab: CBC (09/14/2016 5:40 AM PDT) + + + + + + | Component | Value | Ref Range | Performed | Pathologist | | | | | At | Signature | + + + + + + | WBC | 9.85Comment: Testing | 3.80 - 11.00 | EXTERNAL | | | | performed at [facility], [address] | [address] | LAB | | | | [address], | | | | | | [place] [address] | | | | + + + + + + | Non- | 2.87 (L)Comment: Testing | 4.20 - 5.70 | EXTERNAL | | | Red Blood | performed at [facility], [address] | [address] | LAB | | | Cells | [address], | | | | | Counted | [place] [address] | | | | + + + + + + | Hemoglobin | 8.6 (L)Comment: Testing | 13.2 - 17.0 | EXTERNAL | | | | performed at [facility], [address] | g/dL | LAB | | | | [address], | | | | | | [place] [address] | | | | + + + + + + | Hematocrit, | 25.8 (L)Comment: Testing | 39.0 - 50.0 % | EXTERNAL | | | POC | performed at [facility], [address] | | LAB | | | | [address], | | | | | | [place] [address] | | | | + + + + + + | MCV | 90.0Comment: Testing | 80.0 - 100.0 fl | EXTERNAL | | | | performed at [facility], [address] | | LAB | | | | [address], | | | | | | [place] [address] | | | | + + + + + + | MCH | 29.9Comment: Testing | 27.0 - 34.0 pg | EXTERNAL | | | | performed at [facility], [address] | | LAB | | | | [address], | | | | | | [place] [address] | | | | + + + + + + | MCHC | 33.3Comment: Testing | 32.0 - 35.5 | EXTERNAL | | | | performed at [facility], [address] | g/dL | LAB | | | | [address], | | | | | | [place] [address] | | | | + + + + + + | RDW-CV | 52.9Comment: Testing | 37 - 53 fl | EXTERNAL | | | | performed at [facility], [address] | | LAB | | | | [address], | | | | | | [place] [address] | | | | + + + + + + | Platelet | 245Comment: Testing | 150 - 400 K/uL | EXTERNAL | | | Count | performed at [facility], [address] | | LAB | | | Plasma | [address], | | | | | | [place] [address] | | | | + + + + + + | MPV | 7.1Comment: Testing | fl | EXTERNAL | | | | performed at [facility], [address] | | LAB | | | | [address], | | | | | | [place] [address] | | | | + + + + + + | Differentia | AUTOMATEDComment: | | EXTERNAL | | | l Type | Testing performed at | | LAB | | | | [facility], [address] [address] | | | | | | [place] | | | | | | [address] | | | | + + + + + + | % Segmented | 73.70Comment: Testing | % | EXTERNAL | | | | performed at [facility], [address] | | LAB | | | Neutrophils | [address], | | | | | | [place] [address] | | | | + + + + + + | % | 7.56Comment: Testing | % | EXTERNAL | | | Lymphocytes | performed at [facility], [address] | | LAB | | | | [address], | | | | | | [place] [address] | | | | + + + + + + | % Monocytes | 14.10Comment: Testing | % | EXTERNAL | | | | performed at [facility], [address] | | LAB | | | | [address], | | | | | | [place] [address] | | | | + + + + + + | % | 4.10Comment: Testing | % | EXTERNAL | | | Eosinophils | performed at [facility], [address] | | LAB | | | | [address], | | | | | | [place] [address] | | | | + + + + + + | % Basophils | 0.54Comment: Testing | % | EXTERNAL | | | | performed at [facility], [address] | | LAB | | | | [address], | | | | | | [place] [address] | | | | + + + + + + | Absolute | 7.26Comment: Testing | 1.90 - 7.40 | EXTERNAL | | | Segmented | performed at [facility], [address] | K[address] | LAB | | | Neutrophils | [address], | | | | | | [place] [address] | | | | + + + + + + | Absolute | 0.74 (L)Comment: Testing | 1.00 - 3.90 | EXTERNAL | | | Lymphocytes | performed at [facility], [address] | [address] | LAB | | | | [address], | | | | | | [place] [address] | | | | + + + + + + | Absolute | 1.39 (H)Comment: Testing | 0.00 - 0.80 | EXTERNAL | | | Monocytes | performed at [facility], [address] | [address] | LAB | | | | [address], | | | | | | [place] [address] | | | | + + + + + + | Absolute | 0.40Comment: Testing | 0.00 - 0.50 | EXTERNAL | | | Eosinophils | performed at [facility], [address] | K/u[address] | LAB | | | | [address], | | | | | | [place] [address] | | | | + + + + + + | Absolute | 0.05Comment: Testing | 0.00 - 0.10 | EXTERNAL | | | Basophils | performed at [facility], [address] | K[address] | LAB | | | | [address], | | | | | | [place] [address] | | | | + + + + + + + + | Specimen | + + | Blood specimen | | (specimen) | + + + +---------+ + + | Performing | Address | City/State/Zipcode | Phone Number | | Organization | | | | + +---------+ + + | EXTERNAL LAB | | | | + +---------+ + + Phosphorus (09/14/2016 5:40 AM PDT) + + + + + + | Component | Value | Ref Range | Performed | Pathologist | | | | | At | Signature | + + + + + + | PHOSPHORUS | 4.1Comment: Testing | 2.3 - 4.8 mg/dL | EXTERNAL | | | | performed at [facility], [address] | | LAB | | | | [address], | | | | | | [place] [address] | | | | + + + + + + + + | Specimen | + + | Blood specimen | | (specimen) | + + + +---------+ + + | Performing | Address | City/State/Zipcode | Phone Number | | Organization | | | | + +---------+ + + | EXTERNAL LAB | | | | + +---------+ + + Magnesium (09/14/2016 5:40 AM PDT) + + + + + + | Component | Value | Ref Range | Performed | Pathologist | | | | | At | Signature | + + + + + + | Magnesium | 2.6 (H)Comment: Testing | 1.7 - 2.4 mg/dL | EXTERNAL | | | | performed at [facility], [address] | | LAB | | | | [address], | | | | | | [place] [address] | | | | + + + + + + + + | Specimen | + + | Blood specimen | | (specimen) | + + + +---------+ + + | Performing | Address | City/State/Zipcode | Phone Number | | Organization | | | | + +---------+ + + | EXTERNAL LAB | | | | + +---------+ + + Albumin (09/14/2016 5:40 AM PDT) + + + + + + | Component | Value | Ref Range | Performed | Pathologist | | | | | At | Signature | + + + + + + | Albumin | 2.7 (L)Comment: Testing | 3.6 - 5.0 g/dL | EXTERNAL | | | | performed at [facility], [address] | | LAB | | | | [place], | | | | | | [place] [address] | | | | + + + + + + + + | Specimen | + + | | + + + +---------+ + + | Performing | Address | City/State/Zipcode | Phone Number | | Organization | | | | + +---------+ + + | EXTERNAL LAB | | | | + +---------+ + + Basic Metabolic Panel (09/14/2016 5:40 AM PDT) + + + + + + | Component | Value | Ref Range | Performed | Pathologist | | | | | At | Signature | + + + + + + | Na | 129 (L)Comment: Testing | 135 - 145 | EXTERNAL | | | | performed at [facility], [address] | mmol/L | LAB | | | | [address], | | | | | | [place] [address] | | | | + + + + + + | K | 4.6Comment: Testing | 3.5 - 4.9 | EXTERNAL | | | | performed at [facility], [address] | mmol/L | LAB | | | | [address], | | | | | | [place] [address] | | | | + + + + + + | Cl | 92 (L)Comment: Testing | 99 - 109 mmol/L | EXTERNAL | | | | performed at [facility], [address] | | LAB | | | | [address], | | | | | | [place] [address] | | | | + + + + + + | CO2 | 26Comment: Testing | 23 - 32 mmol/L | EXTERNAL | | | | performed at [facility], [address] | | LAB | | | | [address], | | | | | | [place] [address] | | | | + + + + + + | Anion Gap | 16Comment: Testing | 5 - 20 mmol/L | EXTERNAL | | | | performed at [facility], [address] | | LAB | | | | [address], | | | | | | [place] [address] | | | | + + + + + + | Glucose, | 123 (H)Comment: Testing | 65 - 99 mg/dL | EXTERNAL | | | Fasting | performed at [facility], [address] | | LAB | | | | [address], | | | | | | [place] [address] | | | | + + + + + + | BUN | 58 (H)Comment: Testing | 8 - 25 mg/dL | EXTERNAL | | | | performed at [facility], [address] | | LAB | | | | [address], | | | | | | [place] [address] | | | | + + + + + + | Creatinine | 9.4 (H)Comment: Testing | 0.70 - 1.30 | EXTERNAL | | | | performed at [facility], [address] | mg/dL | LAB | | | | [address], | | | | | | [place] [address] | | | | + + + + + + | BUN/Creatin | 6Comment: Testing | | EXTERNAL | | | ine Ratio | performed at [facility], [address] | | LAB | | | | [address], | | | | | | [place] [address] | | | | + + + + + + | Calcium | 8.3 (L)Comment: Testing | 8.5 - 10.5 | EXTERNAL | | | | performed at [facility], [address] | mg/dL | LAB | | | | [address], | | | | | | [place] [address] | | | | + + + [...] | | | | | | at [facility], [address] | | | | | | [facility], | | | | | | [place] [address] | | | | + + + + + + + + | Specimen | + + | | + + + +---------+ + + | Performing | Address | City/State/Zipcode | Phone Number | | Organization | | | | + +---------+ + + | EXTERNAL LAB | | | | + +---------+ + + POC Glucose (09/14/2016 5:25 AM PDT) + + + + + + | Component | Value | Ref Range | Performed | Pathologist | | | | | At | Signature | + + + + + + | Glucose, | 141 (H)Comment: Testing | 65 - 99 mg/dL | EXTERNAL | | | Fingerstick | performed at [facility] | | LAB | | | | [address];[place] | | | | | | [address] | | | | + + + + + + + + | Specimen | + + | | + + + +---------+ + + | Performing | Address | City/State/Zipcode | Phone Number | | Organization | | | | + +---------+ + + | EXTERNAL LAB | | | | + +---------+ + + POC Glucose (09/13/2016 9:11 PM PDT) + + + + + + | Component | Value | Ref Range | Performed | Pathologist | | | | | At | Signature | + + + + + + | Glucose, | 207 (H)Comment: Testing | 65 - 99 mg/dL | EXTERNAL | | | Fingerstick | performed at [facility] | | LAB | | | | [address];[place], [place] | | | | | | [address] | | | | + + + + + + + + | Specimen | + + | | + + + +---------+ + + | Performing | Address | City/State/Zipcode | Phone Number | | Organization | | | | + +---------+ + + | EXTERNAL LAB | | | | + +---------+ + + POC Glucose (09/13/2016 4:28 PM PDT) + + + + + + | Component | Value | Ref Range | Performed | Pathologist | | | | | At | Signature | + + + + + + | Glucose, | 113 (H)Comment: Testing | 65 - 99 mg/dL | EXTERNAL | | | Fingerstick | performed at [facility] | | LAB | | | | [address];[place], [place] | | | | | | [address] | | | | + + + + + + + + | Specimen | + + | | + + + +---------+ + + | Performing | Address | City/State/Zipcode | Phone Number | | Organization | | | | + +---------+ + + | EXTERNAL LAB | | | | + +---------+ + + POC Glucose (09/13/2016 12:19 PM PDT) + + + + + + | Component | Value | Ref Range | Performed | Pathologist | | | | | At | Signature | + + + + + + | Glucose, | 214 (H)Comment: Testing | 65 - 99 mg/dL | EXTERNAL | | | Fingerstick | performed at [facility] | | LAB | | | | [address];[place] | | | | | | [address] | | | | + + + + + + + + | Specimen | + + | | + + + +---------+ + + | Performing | Address | City/State/Zipcode | Phone Number | | Organization | | | | + +---------+ + + | EXTERNAL LAB | | | | + +---------+ + + Echo Limited (09/13/2016 8:28 AM PDT) + + | Specimen | + + | | + + + + + | Impressions | Performed At | + + + | 1. Overall left ventricular systolic function is normal with, an EF | | | between 55 - 60 %. 2. There is no pericardial effusion. | | + + + + + + | Narrative | Performed At | + + + | Patient Name: CAROL POTTER Date of : 1965 | | | Performing Physician: Flory Razo MD | | | | | | INDICATIONS check effusion CONCLUSIONS | | | 1. Overall left ventricular systolic function is normal with, an EF | | | between 55 - 60 %. 2. There is no pericardial effusion. FINDINGS | | | -------- ECG rhythm: Sinus rhythm. Study: A limited 2-dimensional | | | transthoracic echocardiogram with limited spectral and color flow | | | Doppler was performed. Study: This was a technically difficult study | | | with suboptimal views. Left Ventricle: Overall left ventricular | | | systolic function is normal with, an EF between 55 - 60 %. | | | Pericardium: There is no pericardial effusion. MEASUREMENTS | | | Manager Hvac: SHIRA Authenticated by: Flory Singh | | Danni CABRERA Report Date/Time: 09-13-2016 19:34:14 | | + + + + + | Procedure Note | + + | Khalif Palm Conversion - 02/04/2019 10:13 PM PDT Patient Name: Mohinder POTTER of | | : 1965 Performing Physician: Flory Razo | | MD INDICATIONS c | | heck effusion CONCLUSIONS 1. Overall left ventricular systolic function is | | normal with, an EF between 55 - 60 %.2. There is no pericardial effusion. | | FINDINGS--------ECG rhythm: Sinus rhythm.Study: A limited 2-dimensional transthoracic | | echocardiogram with limited spectral and color flow Doppler was performed.Study: This | | was a technically difficult study with suboptimal views.Left Ventricle: Overall left | | ventricular systolic function is normal with, an EF between 55 - 60 %.Pericardium: There | | is no pericardial effusion. MEASUREMENTS Manager Hvac: Issaticated by: | | Flory Razo MDReport Date/Time: 09-13-2016 19:34:14 IMPRESSION: 1. Overall left | | ventricular systolic function is normal with, an EF between 55 - 60 %.2. There is no | | pericardial effusion. | | | |1. Overall left ventricular systolic function is normal with, an EF between 55 - 60 %. | |2. There is no pericardial effusion. | | | |FINDINGS | |-------- | |ECG rhythm: Sinus rhythm. | |Study: A limited 2-dimensional transthoracic echocardiogram with limited spectral and color flow Doppler was performed. | |Study: This was a technically difficult study with suboptimal views. | |Left Ventricle: Overall left ventricular systolic function is normal with, an EF between 55 - 60 %. | |Pericardium: There is no pericardial effusion. | | | |MEASUREMENTS | | | | | |Manager Hvac: SHIRA | |Authenticated by: Flory Razo MD | |Report Date/Time: 09-13-2016 19:34:14 | | | |IMPRESSION: | |1. Overall left ventricular systolic function is normal with, an EF between 55 - 60 %. | |2. There is no pericardial effusion. | + + External Lab: CBC (09/13/2016 7:09 AM PDT) + + + + + + | Component | Value | Ref Range | Performed | Pathologist | | | | | At | Signature | + + + + + + | WBC | 10.06Comment: Testing | 3.80 - 11.00 | EXTERNAL | | | | performed at [facility] | K/uL | LAB | | | | [address];[place] | | | | | | [address] | | | | + + + + + + | Non- | 2.89 (L)Comment: Testing | 4.20 - 5.70 | EXTERNAL | | | Red Blood | performed at [facility] | M/uL | LAB | | | Cells | [address];[place] | | | | | Counted | [address] | | | | + + + + + + | Hemoglobin | 9.0 (L)Comment: Testing | 13.2 - 17.0 | EXTERNAL | | | | performed at [facility];[address] | g/dL | LAB | | | | [address];[place] | | | | | | [address] | | | | + + + + + + | Hematocrit, | 25.8 (L)Comment: Testing | 39.0 - 50.0 % | EXTERNAL | | | POC | performed at [facility] | | LAB | | | | [address];[place] | | | | | | [address] | | | | + + + + + + | MCV | 89.3Comment: Testing | 80.0 - 100.0 fl | EXTERNAL | | | | performed at [facility] | | LAB | | | | [address];[place] | | | | | | [address] | | | | + + + + + + | MCH | 31.1Comment: Testing | 27.0 - 34.0 pg | EXTERNAL | | | | performed at [facility] | | LAB | | | | [address];[place] | | | | | | [address] | | | | + + + + + + | MCHC | 34.9Comment: Testing | 32.0 - 35.5 | EXTERNAL | | | | performed at [facility] | g/dL | LAB | | | | [address];[place] | | | | | | [address] | | | | + + + + + + | RDW-CV | 51.2Comment: Testing | 37 - 53 fl | EXTERNAL | | | | performed at [facility] | | LAB | | | | [address];[place] | | | | | | [address] | | | | + + + + + + | Platelet | 230Comment: Testing | 150 - 400 K/uL | EXTERNAL | | | Count | performed at [facility];[address] | | LAB | | | Plasma | [address];[place] | | | | | | [address] | | | | + + + + + + | MPV | 6.5Comment: Testing | fl | EXTERNAL | | | | performed at [facility];[address] | | LAB | | | | [address];[place] | | | | | | [address] | | | | + + + + + + | Differentia | AUTOMATEDComment: | | EXTERNAL | | | l Type | Testing performed at | | LAB | | | | [facility];[place] [address] | | | | + + + + + + | % Segmented | 72.42Comment: Testing | % | EXTERNAL | | | | performed at [facility];[address] | | LAB | | | Neutrophils | [address];[place] | | | | | | [address] | | | | + + + + + + | % | 7.78Comment: Testing | % | EXTERNAL | | | Lymphocytes | performed at [facility];[address] | | LAB | | | | [address];[place] | | | | | | [address] | | | | + + + + + + | % Monocytes | 13.64Comment: Testing | % | EXTERNAL | | | | performed at [facility];[address] | | LAB | | | | [address];[place] | | | | | | [address] | | | | + + + + + + | % | 5.69Comment: Testing | % | EXTERNAL | | | Eosinophils | performed at [facility] | | LAB | | | | [address];[place] | | | | | | [address] | | | | + + + + + + | % Basophils | 0.47Comment: Testing | % | EXTERNAL | | | | performed at [facility] | | LAB | | | | [address];[place] | | | | | | [address] | | | | + + + + + + | Absolute | 7.28Comment: Testing | 1.90 - 7.40 | EXTERNAL | | | Segmented | performed at [facility];[address] | [address]uL | LAB | | | Neutrophils | [address];[place] | | | | | | [address] | | | | + + + + + + | Absolute | 0.78 (L)Comment: Testing | 1.00 - 3.90 | EXTERNAL | | | Lymphocytes | performed at [facility];[address] | K/uL | LAB | | | | [address];[place] | | | | | | [address] | | | | + + + + + + | Absolute | 1.37 (H)Comment: Testing | 0.00 - 0.80 | EXTERNAL | | | Monocytes | performed at [facility];[address] | K[address]uL | LAB | | | | [address];[place] | | | | | | [address] | | | | + + + + + + | Absolute | 0.57 (H)Comment: Testing | 0.00 - 0.50 | EXTERNAL | | | Eosinophils | performed at [facility];[address] | [address]uL | LAB | | | | [address];[place] | | | | | | [address] | | | | + + + + + + | Absolute | 0.05Comment: Testing | 0.00 - 0.10 | EXTERNAL | | | Basophils | performed at [facility];[address] | [address] | LAB | | | | [address];[place] | | | | | | [address] | | | | + + + + + + + + | Specimen | + + | Blood specimen | | (specimen) | + + + +---------+ + + | Performing | Address | City/State/Zipcode | Phone Number | | Organization | | | | + +---------+ + + | EXTERNAL LAB | | | | + +---------+ + + Phosphorus (09/13/2016 7:09 AM PDT) + + + + + + | Component | Value | Ref Range | Performed | Pathologist | | | | | At | Signature | + + + + + + | PHOSPHORUS | 3.7Comment: Testing | 2.3 - 4.8 mg/dL | EXTERNAL | | | | performed at [facility];[address] | | LAB | | | | [address];[place], [place] | | | | | | [address] | | | | + + + + + + + + | Specimen | + + | Blood specimen | | (specimen) | + + + +---------+ + + | Performing | Address | City/State/Zipcode | Phone Number | | Organization | | | | + +---------+ + + | EXTERNAL LAB | | | | + +---------+ + + Magnesium (09/13/2016 7:09 AM PDT) + + + + + + | Component | Value | Ref Range | Performed | Pathologist | | | | | At | Signature | + + + + + + | Magnesium | 2.2Comment: Testing | 1.7 - 2.4 mg/dL | EXTERNAL | | | | performed at [facility] | | LAB | | | | [address];[place] | | | | | | [address] | | | | + + + + + + + + | Specimen | + + | Blood specimen | | (specimen) | + + + +---------+ + + | Performing | Address | City/State/Zipcode | Phone Number | | Organization | | | | + +---------+ + + | EXTERNAL LAB | | | | + +---------+ + + Hemoglobin A1C (09/13/2016 7:09 AM PDT) + + + + + + | Component | Value | Ref Range | Performed | Pathologist | | | | | At | Signature | + + + + + + | Hemoglobin | 6.0Comment: [place] | 4.0 - 6.0 % | EXTERNAL [...] | | | | | performed at [facility], [address] | | | | | [address], | | | | | | [place] [address] | | | | + + + + + + | Glycohemogl | 126Comment: The [employer] | mg/dL | EXTERNAL | [...] | | | | | performed at [facility], [address] | | | | | | [address], | | | | | | [place] [address] | | | | + + + + + + + + | Specimen | + + | Blood specimen | | (specimen) | + + + +---------+ + + | Performing | Address | City/State/Zipcode | Phone Number | | Organization | | | | + +---------+ + + | EXTERNAL LAB | | | | + +---------+ + + Renal Function Panel (09/13/2016 7:09 AM PDT) + + + + + + | Component | Value | Ref Range | Performed | Pathologist | | | | | At | Signature | + + + + + + | Na | 131 (L)Comment: Testing | 135 - 145 | EXTERNAL | | | | performed at [facility] | mmol/L | LAB | | | | [address];[place] | | | | | | [address] | | | | + + + + + + | K | 4.1Comment: Testing | 3.5 - 4.9 | EXTERNAL | | | | performed at [facility] | mmol/L | LAB | | | | [address];[place] | | | | | | [address] | | | | + + + + + + | Cl | 93 (L)Comment: Testing | 99 - 109 mmol/L | EXTERNAL | | | | performed at [facility] | | LAB | | | | [address];[place] | | | | | | [address] | | | | + + + + + + | CO2 | 25Comment: Testing | 23 - 32 mmol/L | EXTERNAL | | | | performed at [facility] | | LAB | | | | [address];[place] | | | | | | [address] | | | | + + + + + + | Anion Gap | 17Comment: Testing | 5 - 20 mmol/L | EXTERNAL | | | | performed at [facility];[address] | | LAB | | | | [address];[place] | | | | | | [address] | | | | + + + + + + | Glucose, | 173 (H)Comment: Testing | 65 - 99 mg/dL | EXTERNAL | | | Fasting | performed at [facility];[address] | | LAB | | | | [address];[place] | | | | | | [address] | | | | + + + + + + | BUN | 40 (H)Comment: Testing | 8 - 25 mg/dL | EXTERNAL | | | | performed at [facility];[address] | | LAB | | | | [address];[place] | | | | | | [address] | | | | + + + + + + | Creatinine | 7.3 (H)Comment: Testing | 0.70 - 1.30 | EXTERNAL | | | | performed at [facility];[address] | mg/dL | LAB | | | | [address];[place] | | | | | | [address] | | | | + + + + + + | Calcium | 7.6 (L)Comment: Testing | 8.5 - 10.5 | EXTERNAL | | | | performed at [facility];[address] | mg/dL | LAB | | | | [address];[place] | | | | | | [address] | | | | + + + + + + | Albumin | 2.8 (L)Comment: Testing | 3.6 - 5.0 g/dL | EXTERNAL | | | | performed at [facility];[address] | | LAB | | | | [address];[place] | | | | | | [address] | | | | + + + + + + | PHOSPHORUS | 3.6Comment: Testing | 2.3 - 4.8 mg/dL | EXTERNAL | | | | performed at [facility];[address] | | LAB | | | | [address];[place] | | | | | | [address] | | | | + + + [...] | | | | | | at [facility];[address] [facility] | | | | | | [address];[place] [address] | | | | + + + [...] + +---------+ + + External Lab: CBC (09/12/2016 7:22 AM PDT) + + + + + + | Component | Value | Ref Range | Performed | Pathologist | | | | | At | Signature | + + + + + + | WBC | 11.82 (H)Comment: | 3.80 - 11.00 | EXTERNAL | | | | Testing performed at | K/uL | LAB | | | | [facility];[address];[place] [address] | | | | + + + + + + | Non- | 2.92 (L)Comment: Testing | 4.20 - 5.70 | EXTERNAL | | | Red Blood | performed at [facility];[address] | M/uL | LAB | | | Cells | [address];[place] | | | | | Counted | [address] | | | | + + + + + + | Hemoglobin | 8.9 (L)Comment: Testing | 13.2 - 17.0 | EXTERNAL | | | | performed at [facility];[address] | g/dL | LAB | | | | [address];[place] | | | | | | [address] | | | | + + + + + + | Hematocrit, | 26.2 (L)Comment: Testing | 39.0 - 50.0 % | EXTERNAL | | | POC | performed at [facility];[address] | | LAB | | | | [address];[place] | | | | | | [address] | | | | + + + + + + | MCV | 89.5Comment: Testing | 80.0 - 100.0 fl | EXTERNAL | | | | performed at [facility];[address] | | LAB | | | | [address];[place] | | | | | | [address] | | | | + + + + + + | MCH | 30.6Comment: Testing | 27.0 - 34.0 pg | EXTERNAL | | | | performed at [facility];[address] | | LAB | | | | [address];[place] | | | | | | [address] | | | | + + + + + + | MCHC | 34.1Comment: Testing | 32.0 - 35.5 | EXTERNAL | | | | performed at [facility];[address] | g/dL | LAB | | | | [address];[place] | | | | | | [address] | | | | + + + + + + | RDW-CV | 51.2Comment: Testing | 37 - 53 fl | EXTERNAL | | | | performed [place] [facility] [place] | | LAB | | | | [address];[place] | | | | | | [address] | | | | + + + + + + | Platelet | 255Comment: Testing | 150 - 400 K/uL | EXTERNAL | | | Count | performed at [facility] [place] | | LAB | | | Plasma | [address];[place] | | | | | | [address] | | | | + + + + + + | MPV | 6.5Comment: Testing | fl | EXTERNAL | | | | performed at [facility] [place] | | LAB | | | | [address];[place] | | | | | | [address] | | | | + + + + + + | Differentia | AUTOMATEDComment: | | EXTERNAL | | | l Type | Testing performed at | | LAB | | | | [facility] [place];[place] [address] | | | | + + + + + + | % Segmented | 82.52Comment: Testing | % | EXTERNAL | | | | performed at [facility] [place] | | LAB | | | Neutrophils | [address];[place] | | | | | | [address] | | | | + + + + + + | % | 3.94Comment: Testing | % | EXTERNAL | | | Lymphocytes | performed at [facility] [place] | | LAB | | | | [address];[place] | | | | | | [address] | | | | + + + + + + | % Monocytes | 10.34Comment: Testing | % | EXTERNAL | | | | performed at [facility] [place] | | LAB | | | | [address];[place] | | | | | | [address] | | | | + + + + + + | % | 2.63Comment: Testing | % | EXTERNAL | | | Eosinophils | performed at [facility] [place] | | LAB | | | | [address];[place] | | | | | | [address] | | | | + + + + + + | % Basophils | 0.57Comment: Testing | % | EXTERNAL | | | | performed at [facility] [place] | | LAB | | | | [address];[place] | | | | | | [address] | | | | + + + + + + | Absolute | 9.75 (H)Comment: Testing | 1.90 - 7.40 | EXTERNAL | | | Segmented | performed at [facility] [place] | K/uL | LAB | | | Neutrophils | [address];[place] | | | | | | [id number] | | | | + + + + + + | Absolute | 0.47 (L)Comment: Testing | 1.00 - 3.90 | EXTERNAL | | | Lymphocytes | performed at [facility] [place] | K/uL | LAB | | | | [address];[place] | | | | | | [address] | | | | + + + + + + | Absolute | 1.22 (H)Comment: Testing | 0.00 - 0.80 | EXTERNAL | | | Monocytes | performed at [facility] [place] | K/uL | LAB | | | | [address];[place] | | | | | | [address] | | | | + + + + + + | Absolute | 0.31Comment: Testing | 0.00 - 0.50 | EXTERNAL | | | Eosinophils | performed at [facility] [place] | K/uL | LAB | | | | [address];[place] | | | | | | [address] | | | | + + + + + + | Absolute | 0.07Comment: Testing | 0.00 - 0.10 | EXTERNAL | | | Basophils | performed at [facility] [place] | K/uL | LAB | | | | [address];[place] | | | | | | [address] | | | | + + + + + + + + | Specimen | + + | | + + + +---------+ + + | Performing | Address | City/State/Zipcode | Phone Number | | Organization | | | | + +---------+ + + | EXTERNAL LAB | | | | + +---------+ + + Magnesium (09/12/2016 7:22 AM PDT) + + + + + + | Component | Value | Ref Range | Performed | Pathologist | | | | | At | Signature | + + + + + + | Magnesium | 2.2Comment: Testing | 1.7 - 2.4 mg/dL | EXTERNAL | | | | performed at [facility] [place] | | LAB | | | | [address];[place], [place] | | | | | | [address] | | | | + + + + + + + + | Specimen | + + | | + + + +---------+ + + | Performing | Address | City/State/Zipcode | Phone Number | | Organization | | | | + +---------+ + + | EXTERNAL LAB | | | | + +---------+ + + Renal Function Panel (09/12/2016 7:22 AM PDT) + + + + + + | Component | Value | Ref Range | Performed | Pathologist | | | | | At | Signature | + + + + + + | Na | 130 (L)Comment: Testing | 135 - 145 | EXTERNAL | | | | performed at [facility] [place] | mmol/L | LAB | | | | [address];[place] | | | | | | [address] | | | | + + + + + + | K | 4.9Comment: Testing | 3.5 - 4.9 | EXTERNAL | | | | performed at [facility] [place] | mmol/L | LAB | | | | [address];[place] | | | | | | [address] | | | | + + + + + + | Cl | 93 (L)Comment: Testing | 99 - 109 mmol/L | EXTERNAL | | | | performed at [facility] [place] | | LAB | | | | [address];[place] | | | | | | [address] | | | | + + + + + + | CO2 | 24Comment: Testing | 23 - 32 mmol/L | EXTERNAL | | | | performed at [facility] [place] | | LAB | | | | [address];[place] | | | | | | [address] | | | | + + + + + + | Anion Gap | 17Comment: Testing | 5 - 20 mmol/L | EXTERNAL | | | | performed at [facility] [place] | | LAB | | | | [address];[place] | | | | | | [address] | | | | + + + + + + | Glucose, | 189 (H)Comment: Testing | 65 - 99 mg/dL | EXTERNAL | | | Fasting | performed at [facility] [place] | | LAB | | | | [address];[place] | | | | | | [address] | | | | + + + + + + | BUN | 52 (H)Comment: Testing | 8 - 25 mg/dL | EXTERNAL | | | | performed at [facility] [place] | | LAB | | | | [address];[place] | | | | | | [address] | | | | + + + + + + | Creatinine | 8.7 (H)Comment: Testing | 0.70 - 1.30 | EXTERNAL | | | | performed at [facility] [place] | mg/dL | LAB | | | | [address];[place] | | | | | | [address] | | | | + + + + + + | Calcium | 7.1 (L)Comment: Testing | 8.5 - 10.5 | EXTERNAL | | | | performed at [facility] [place] | mg/dL | LAB | | | | [address];[place] | | | | | | [address] | | | | + + + + + + | Albumin | 2.7 (L)Comment: Testing | 3.6 - 5.0 g/dL | EXTERNAL | | | | performed at [facility] [place] | | LAB | | | | [address];[place] | | | | | | [address] | | | | + + + + + + | PHOSPHORUS | 4.5Comment: Testing | 2.3 - 4.8 mg/dL | EXTERNAL | | | | performed at [facility] [place] | | LAB | | | | [address];[place] | | | | | | [address] | | | | + + + + + + | Estimated | 7 (L)Comment: GFR <60: | mL/min/1.73m2 | EXTERNAL [...] | | | | | | at [facility] [place] | [address];[place] [address] | | | | + + + + + + + + | Specimen | + + | Blood specimen | | (specimen) | + + + +---------+ + + | Performing | Address | City/State/Zipcode | Phone Number | | Organization | | | | + +---------+ + + | EXTERNAL LAB | | | | + +---------+ + + US Guided Vascular Access (09/11/2016 8:17 PM PDT) + + | Specimen | + + | | + + + + + | Narrative | Performed At | + + + | This Point of Care (POC) ultrasound image has been reviewed and | | | interpreted by the physician identified as the performing physician in | | | the associated interpretation and report. | | + + + + + | Procedure Note | + + | Khalif Palm - 02/04/2019 10:13 PM PDT This Point of Care (POC) ultrasound | | image has been reviewed andinterpreted by the physician identified as the performing | | physician in theassociated interpretation and report. | | | + + IR Angioplasty/Atherectomy/Stent (09/11/2016 8:00 PM PDT) + + | Specimen | + + | | + + + + + | Impressions | Performed At | + + + | 1. 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 May | | | proceed with dialysis via brachiobasilic fistula. 2. Complication of | | | hemopericardium treated with pericardial drain. The appreciated | | | assistance of Dr. Posada. | | + + + + + + | Narrative | Performed At | + + + | IR VENOGRAM UPPER EXTREMITY RIGHT dated 09/11/2016 8:00 PM | | | CLINICAL DATA: Recurrent right upper extremity central venous | | | occlusion. History of brachiobasilic fistula with prior | | | subclavian/brachiocephalic venous occlusion with reocclusion and arm | | | swelling. COMPARISON STUDIES: 10/06/2015 and prior day venogram | | | PRIMARY DATA WAREHOUSE ANALYST: Jimenez Garnica MD, PhD, RPVI OPERATIONS: 1. | | | Ultrasound-guided right basilic venous access 2. Ultrasound | | | guided left common femoral venous access, second stick required 3. | | | Central venogram via simultaneous injections of both accesses 4. | | | Attempted recanalization of right | | | brachiocephalic/subclavian/axillary venous occlusion from femoral | | | access 5. Successful recanalization of right | | | brachiocephalic/subclavian/axillary venous occlusion via basilic | | | access 6. Prolonged angioplasty and provisional stent placement of | | | the right brachiocephalic, subclavian and axillary veins. | | | PROCEDURE: Informed consent was obtained from the patient. | | | Continuous cardiac monitoring was performed throughout the | | | procedure. Conscious sedation was provided by the nursing staff | | | during the procedure under my supervision. Sedation time:21.2 | | | minutes Medications: 0.5 mg Versed IV, 300 mcg Fentanyl IV | | | Antibiotic: None Contrast:135 cc Isovue 250 Fluoroscopy time:21.2 | | | minutes Radiation dose:178 mGy air kerma The patient was | | | sterilely prepped and draped in usual fashion about the left groin and | | | right arm. Following lidocaine local anesthetic, left common | | | femoral ultrasound-guided micropuncture venous access was obtained and | | | a 70 cm 7 [place] Jules sheath was advanced to the right atrium. Next, | | | the right basilic vein was locally anesthetized with lidocaine and | | | real-time ultrasound guided micropuncture access was obtained and a 6 | | | [place] 45 cm destination sheath was placed to the level of the right | | | axillary vein occlusion. Via both sheaths, simultaneous contrast | | | injections were performed for central venogram to clearly delineate | | | extent of the occlusion. With the dilator at the tip of the | | | sheath, a stiff Glidewire was advanced into the superior vena cava. | | | The dilator was removed and a Berenstein catheter was advanced in | | | conjunction with the Glidewire. The wire and catheter course to the | | | left in what was thought to be the left brachial cephalic vein. | | | Contrast injection was suboptimal with imaging secondary to patient | | | breathing motion artifact. However, did not appear that the catheter | | | was directed into the right brachiocephalic vein. The catheter was | | | withdrawn. Via the right basilic sheath, a combination of stiff | | | wires, catheters and sheath were slowly advanced through the subacute | | | appearing right axillary venous occlusion and chronic right subclavian | | | and brachiocephalic occlusions. Eventually, the stiff Glidewire was | | | advanced and appeared to freely rotating the right atrium. The wire | | | was advanced into the inferior vena cava followed by a stiff | | | microcatheter. The wire was exchanged to a stronger support catheter. | | | During interventional attempts, it was noted that there appeared | | | to be contrast within the pericardium. Dr. Posada , interventional | | | cardiology, was consulted and he came to the catheter lab promptly. We | | | reviewed the images and he was in agreement. He ordered an | | | echocardiogram and while awaiting for the cardiac monitor technician to arise, he | | | began personally evaluating the effusion with echocardiography. | | | Patient remained stable throughout the entire procedure. Decision was | | | made to proceed to pericardiocentesis. Dr. Ruth very graciously | | | placed a pericardial drain. Please see his procedural note. We | | | discussed whether or not to proceed with central venous angioplasty. | | | Given that the patient had remained stable and now had a pericardial | | | drain in place, we decided that it was safe to proceed. However, | | | decision was made to defer anticoagulation during the procedure for | | | safety. The right brachiocephalic and subclavian occlusions were | | | first predilated with a 4 mm angioplasty balloon. Serial prolonged | | | angioplasty was then performed with 8 mm angioplasty balloon in the | | | right brachiocephalic and subclavian veins followed x 15 mm | | | angioplasty balloon in the brachiocephalic vein and 10 mm angioplasty | | | balloon in the right subclavian vein. Flow was restored but there was | | | significant recoil. Discussion by phone with Dr. Meyer, vascular | | | surgery, who agreed stent placement was appropriate. A 14 mm x | | | 60 mm self-expanding stent was deployed from the central aspect of the | | | occlusion in the brachiocephalic vein into the subclavian vein. A 12 | | | mm x 40 mm overlapping self-expanding stent was then deployed in the | | | subclavian vein to cover the full extent of the occlusion. Follow-up | | | venogram was performed which showed improvement in the caliber. There | | | was still some degree of recoil but given the hemopericardium, | | | decision was made to perform no further dilation at this time. The | | | catheters and wires were removed. The right basilic sheath was | | | removed while simultaneously deploying a 3-0 Vicryl pursestring suture | | | for immediate hemostasis. The left groin sheath was removed and | | | manual compression was applied until hemostasis was achieved. | | | Findings: As on prior day's venogram, there is occlusion of the right | | | brachiocephalic, right subclavian and central right axillary veins. | | | There is marked chest wall and neck collateralization. The right | | | internal jugular vein does not opacify. The central superior vena | | | cava has moderate-severe stenosis as on prior day's CT. Contrast | | | injection from lower access during the recanalization attempt appears | | | to opacify the left brachiocephalic vein area however, on subsequent | | | real-time fluoroscopy, it is apparent that contrast also opacified the | | | pericardium. Following prolonged serial balloon angioplasty and | | | right brachiocephalic, subclavian and axillary veins as described, | | | there still remains significant recoil but episcopalian of in-line | | | flow. Following provisional stent placements, the caliber of the | | | treated segments is much improved but still undersized compared to the | | | true caliber of the stents. There is complete resolution of | | | collateral neck and chest wall collateral filling. Contrast dilution | | | from competitive left brachiocephalic inflow is noted at the central | | | aspect of the brachiobasilic stent. Complication: Hemopericardium | | | treated with pericardial drain | | + + + + + | Procedure Note | + + | Néstor, Rad Conversion - 02/04/2019 10:13 PM PDT IR VENOGRAM UPPER EXTREMITY RIGHT dated | | 09/11/2016 8:00 PM CLINICAL DATA: Recurrent right upper extremity central venous | | occlusion. 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 COMPARISON STUDIES: 10/06/2015 and | | prior day venogram PRIMARY DATA WAREHOUSE ANALYST: Jimenez Garnica MD, PhD, VI OPERATIONS:1. | | Ultrasound-guided right basilic venous access2. Ultrasound guided left common femoral | | venous access, second stick required3. Central venogram via simultaneous injections of | | both accesses4. Attempted recanalization of right brachiocephalic/subclavian/axillary | | venous occlusion from femoral access5. Successful recanalization of right | | brachiocephalic/subclavian/axillary venous occlusion via basilic access6. Prolonged | | angioplasty and provisional stent placement of the right brachiocephalic, subclavian and | | axillary veins. PROCEDURE: Informed consent was obtained from the patient. Continuous | | cardiac monitoring was performed throughout the procedure. Conscious sedation was | | provided by the nursing staff during the procedure under my supervision. Sedation | | time:21.2 minutesMedications: 0.5 mg Versed IV, 300 mcg Fentanyl IVAntibiotic: | | NoneContrast:135 cc Isovue 250Fluoroscopy time:21.2 minutesRadiation dose:178 mGy air | | kerma The patient was sterilely prepped and draped in usual fashion about the left groin | | and right arm. Following lidocaine local anesthetic, left common femoral | | ultrasound-guided micropuncture venous access was obtained and a 70 cm 7 [place] Jules | | sheath was advanced to the right atrium. Next, the right basilic vein was locally | | anesthetized with lidocaine and real-time ultrasound guided micropuncture access was | | obtained and a 6 [place] 45 cm destination sheath was placed to the level of the right | | axillary vein occlusion. Via both sheaths, simultaneous contrast injections were | | performed for central venogram to clearly delineate extent of the occlusion. With the | | dilator at the tip of the sheath, a stiff Glidewire was advanced into the superior vena | | cava. The dilator was removed and a Berenstein catheter was advanced in conjunction with | | the Glidewire. The wire and catheter course to the left in what was thought to be the | | left brachial cephalic vein. Contrast injection was suboptimal with imaging secondary to | | patient breathing motion artifact. However, did not appear that the catheter was | | directed into the right brachiocephalic vein. The catheter was withdrawn. 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 Eventually, the stiff Glidewire was advanced | | and appeared to freely rotating the right atrium. The wire was advanced into the | | inferior vena cava followed by a stiff microcatheter. The wire was exchanged to a | | stronger support catheter. During interventional attempts, it was noted that there | | appeared to be contrast within the pericardium. Dr. Posada , interventional cardiology, | | was consulted and he came to the catheter lab promptly. We reviewed the images and he | | was in agreement. He ordered an echocardiogram and while awaiting for the cardiac monitor technician to | | arise, he began personally evaluating the effusion with echocardiography. Patient | | remained stable throughout the entire procedure. Decision was made to proceed to | | pericardiocentesis. Dr. Posada very graciously placed a pericardial drain. Please see | | his procedural note. We discussed whether or not to proceed with central venous | | angioplasty. Given that the patient had remained stable and now had a pericardial drain | | in place, we decided that it was safe to proceed. However, decision was made to defer | | anticoagulation during the procedure for safety. The right brachiocephalic and | | subclavian occlusions were first predilated with a 4 mm angioplasty balloon. Serial | | prolonged angioplasty was then performed with 8 mm angioplasty balloon in the right | | brachiocephalic and subclavian veins followed x 15 mm angioplasty balloon in the | | brachiocephalic vein and 10 mm angioplasty balloon in the right subclavian vein. Flow | | was restored but there was significant recoil. Discussion by phone with Dr. Meyer, | | vascular surgery, who agreed stent placement was appropriate. A 14 mm x 60 mm | | self-expanding stent was deployed from the central aspect of the occlusion in the | | brachiocephalic vein into the subclavian vein. A 12 mm x 40 mm overlapping | | self-expanding stent was then deployed in the subclavian vein to cover the full extent | | of the occlusion. Follow-up venogram was performed which showed improvement in the | | caliber. There was still some degree of recoil but given the hemopericardium, decision | | was made to perform no further dilation at this time. The catheters and wires were | | removed. The right basilic sheath was removed while simultaneously deploying a 3-0 | | Vicryl pursestring suture for immediate hemostasis. The left groin sheath was removed | | and manual compression was applied until hemostasis was achieved. Findings: As on prior | | day's venogram, there is occlusion of the right brachiocephalic, right subclavian and | | central right axillary veins. There is marked chest wall and neck collateralization. The | | right internal jugular vein does not opacify. The central superior vena cava has | | moderate-severe stenosis as on prior day's CT. Contrast injection from lower access | | during the recanalization attempt appears to opacify the left brachiocephalic vein area | | however, on subsequent real-time fluoroscopy, it is apparent that contrast also | | opacified the pericardium. Following prolonged serial balloon angioplasty and right | | brachiocephalic, subclavian and axillary veins as described, there still remains | | significant recoil but episcopalian of in-line flow. Following provisional stent | | placements, the caliber of the treated segments is much improved but still undersized | | compared to the true caliber of the stents. There is complete resolution of collateral | | neck and chest wall collateral filling. Contrast dilution from competitive left | | brachiocephalic inflow is noted at the central aspect of the brachiobasilic stent. | | Complication: Hemopericardium treated with pericardial drain IMPRESSION: 1. Successful | | recanalization with angioplasty and provisional stent placement of subacute axillary | | and chronic right brachiocephalic, subclavian venous occlusions as described. May | | proceed with dialysis via brachiobasilic fistula.2. Complication of hemopericardium | | treated with pericardial drain. The appreciated assistance of Dr. Posada. Electronically | | signed by Jimenez Garnica MD on 09/11/2016 8:53 PM | + + IR Venogram Upper/lower extremity (09/11/2016 8:00 PM PDT) + + | Specimen | + + | | + + + + + | Impressions | Performed At | + + + | 1. 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 May | | | proceed with dialysis via brachiobasilic fistula. 2. Complication of | | | hemopericardium treated with pericardial drain. The appreciated | | | assistance of Dr. Posada. | | + + + + + + | Narrative | Performed At | + + + | IR VENOGRAM UPPER EXTREMITY RIGHT dated 09/11/2016 8:00 PM | | | CLINICAL DATA: Recurrent right upper extremity central venous | | | occlusion. History of brachiobasilic fistula with prior | | | subclavian/brachiocephalic venous occlusion with reocclusion and arm | | | swelling. COMPARISON STUDIES: 10/06/2015 and prior day venogram | | | PRIMARY DATA WAREHOUSE ANALYST: Jimenez Garnica MD, PhD, RPVI OPERATIONS: 1. | | | Ultrasound-guided right basilic venous access 2. Ultrasound | | | guided left common femoral venous access, second stick required 3. | | | Central venogram via simultaneous injections of both accesses 4. | | | Attempted recanalization of right | | | brachiocephalic/subclavian/axillary venous occlusion from femoral | | | access 5. Successful recanalization of right | | | brachiocephalic/subclavian/axillary venous occlusion via basilic | | | access 6. Prolonged angioplasty and provisional stent placement of | | | the right brachiocephalic, subclavian and axillary veins. | | | PROCEDURE: Informed consent was obtained from the patient. | | | Continuous cardiac monitoring was performed throughout the | | | procedure. Conscious sedation was provided by the nursing staff | | | during the procedure under my supervision. Sedation time:21.2 | | | minutes Medications: 0.5 mg Versed IV, 300 mcg Fentanyl IV | | | Antibiotic: None Contrast:135 cc Isovue 250 Fluoroscopy time:21.2 | | | minutes Radiation dose:178 mGy air kerma The patient was | | | sterilely prepped and draped in usual fashion about the left groin and | | | right arm. Following lidocaine local anesthetic, left common | | | femoral ultrasound-guided micropuncture venous access was obtained and | | | a 70 cm 7 [place] Jules sheath was advanced to the right atrium. Next, | | | the right basilic vein was locally anesthetized with lidocaine and | | | real-time ultrasound guided micropuncture access was obtained and a 6 | | | [place] 45 cm destination sheath was placed to the level of the right | | | axillary vein occlusion. Via both sheaths, simultaneous contrast | | | injections were performed for central venogram to clearly delineate | | | extent of the occlusion. With the dilator at the tip of the | | | sheath, a stiff Glidewire was advanced into the superior vena cava. | | | The dilator was removed and a Berenstein catheter was advanced in | | | conjunction with the Glidewire. The wire and catheter course to the | | | left in what was thought to be the left brachial cephalic vein. | | | Contrast injection was suboptimal with imaging secondary to patient | | | breathing motion artifact. However, did not appear that the catheter | | | was directed into the right brachiocephalic vein. The catheter was | | | withdrawn. Via the right basilic sheath, a combination of stiff | | | wires, catheters and sheath were slowly advanced through the subacute | | | appearing right axillary venous occlusion and chronic right subclavian | | | and brachiocephalic occlusions. Eventually, the stiff Glidewire was | | | advanced and appeared to freely rotating the right atrium. The wire | | | was advanced into the inferior vena cava followed by a stiff | | | microcatheter. The wire was exchanged to a stronger support catheter. | | | During interventional attempts, it was noted that there appeared | | | to be contrast within the pericardium. Dr. Posada , interventional | | | cardiology, was consulted and he came to the catheter lab promptly. We | | | reviewed the images and he was in agreement. He ordered an | | | echocardiogram and while awaiting for the cardiac monitor technician to arise, he | | | began personally evaluating the effusion with echocardiography. | | | Patient remained stable throughout the entire procedure. Decision was | | | made to proceed to pericardiocentesis. Dr. Posada very graciously | | | placed a pericardial drain. Please see his procedural note. We | | | discussed whether or not to proceed with central venous angioplasty. | | | Given that the patient had remained stable and now had a pericardial | | | drain in place, we decided that it was safe to proceed. However, | | | decision was made to defer anticoagulation during the procedure for | | | safety. The right brachiocephalic and subclavian occlusions were | | | first predilated with a 4 mm angioplasty balloon. Serial prolonged | | | angioplasty was then performed with 8 mm angioplasty balloon in the | | | right brachiocephalic and subclavian veins followed x 15 mm | | | angioplasty balloon in the brachiocephalic vein and 10 mm angioplasty | | | balloon in the right subclavian vein. Flow was restored but there was | | | significant recoil. Discussion by phone with Dr. Meyer, vascular | | | surgery, who agreed stent placement was appropriate. A 14 mm x | | | 60 mm self-expanding stent was deployed from the central aspect of the | | | occlusion in the brachiocephalic vein into the subclavian vein. A 12 | | | mm x 40 mm overlapping self-expanding stent was then deployed in the | | | subclavian vein to cover the full extent of the occlusion. Follow-up | | | venogram was performed which showed improvement in the caliber. There | | | was still some degree of recoil but given the hemopericardium, | | | decision was made to perform no further dilation at this time. The | | | catheters and wires were removed. The right basilic sheath was | | | removed while simultaneously deploying a 3-0 Vicryl pursestring suture | | | for immediate hemostasis. The left groin sheath was removed and | | | manual compression was applied until hemostasis was achieved. | | | Findings: As on prior day's venogram, there is occlusion of the right | | | brachiocephalic, right subclavian and central right axillary veins. | | | There is marked chest wall and neck collateralization. The right | | | internal jugular vein does not opacify. The central superior vena | | | cava has moderate-severe stenosis as on prior day's CT. Contrast | | | injection from lower access during the recanalization attempt appears | | | to opacify the left brachiocephalic vein area however, on subsequent | | | real-time fluoroscopy, it is apparent that contrast also opacified the | | | pericardium. Following prolonged serial balloon angioplasty and | | | right brachiocephalic, subclavian and axillary veins as described, | | | there still remains significant recoil but episcopalian of in-line | | | flow. Following provisional stent placements, the caliber of the | | | treated segments is much improved but still undersized compared to the | | | true caliber of the stents. There is complete resolution of | | | collateral neck and chest wall collateral filling. Contrast dilution | | | from competitive left brachiocephalic inflow is noted at the central | | | aspect of the brachiobasilic stent. Complication: Hemopericardium | | | treated with pericardial drain | | + + + + + | Procedure Note | + + | Néstor, Rad Conversion - 02/04/2019 10:13 PM PDT IR VENOGRAM UPPER EXTREMITY RIGHT dated | | 09/11/2016 8:00 PM CLINICAL DATA: Recurrent right upper extremity central venous | | occlusion. 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 COMPARISON STUDIES: 10/06/2015 and | | prior day venogram PRIMARY DATA WAREHOUSE ANALYST: Jimenez Garnica MD, PhD, [facility] OPERATIONS:1. | | Ultrasound-guided right basilic venous access2. Ultrasound guided left common femoral | | venous access, second stick required3. Central venogram via simultaneous injections of | | both accesses4. Attempted recanalization of right brachiocephalic/subclavian/axillary | | venous occlusion from femoral access5. Successful recanalization of right | | brachiocephalic/subclavian/axillary venous occlusion via basilic access6. Prolonged | | angioplasty and provisional stent placement of the right brachiocephalic, subclavian and | | axillary veins. PROCEDURE: Informed consent was obtained from the patient. Continuous | | cardiac monitoring was performed throughout the procedure. Conscious sedation was | | provided by the nursing staff during the procedure under my supervision. Sedation | | time:21.2 minutesMedications: 0.5 mg Versed IV, 300 mcg Fentanyl IVAntibiotic: | | NoneContrast:135 cc Isovue 250Fluoroscopy time:21.2 minutesRadiation dose:178 mGy air | | kerma The patient was sterilely prepped and draped in usual fashion about the left groin | | and right arm. Following lidocaine local anesthetic, left common femoral | | ultrasound-guided micropuncture venous access was obtained and a 70 cm 7 [place] Jules | | sheath was advanced to the right atrium. Next, the right basilic vein was locally | | anesthetized with lidocaine and real-time ultrasound guided micropuncture access was | | obtained and a 6 [place] 45 cm destination sheath was placed to the level of the right | | axillary vein occlusion. Via both sheaths, simultaneous contrast injections were | | performed for central venogram to clearly delineate extent of the occlusion. With the | | dilator at the tip of the sheath, a stiff Glidewire was advanced into the superior vena | | cava. The dilator was removed and a Berenstein catheter was advanced in conjunction with | | the Glidewire. The wire and catheter course to the left in what was thought to be the | | left brachial cephalic vein. Contrast injection was suboptimal with imaging secondary to | | patient breathing motion artifact. However, did not appear that the catheter was | | directed into the right brachiocephalic vein. The catheter was withdrawn. 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 Eventually, the stiff Glidewire was advanced | | and appeared to freely rotating the right atrium. The wire was advanced into the | | inferior vena cava followed by a stiff microcatheter. The wire was exchanged to a | | stronger support catheter. During interventional attempts, it was noted that there | | appeared to be contrast within the pericardium. Dr. Posada , interventional cardiology, | | was consulted and he came to the catheter lab promptly. We reviewed the images and he | | was in agreement. He ordered an echocardiogram and while awaiting for the cardiac monitor technician to | | arise, he began personally evaluating the effusion with echocardiography. Patient | | remained stable throughout the entire procedure. Decision was made to proceed to | | pericardiocentesis. Dr. Posada very graciously placed a pericardial drain. Please see | | his procedural note. We discussed whether or not to proceed with central venous | | angioplasty. Given that the patient had remained stable and now had a pericardial drain | | in place, we decided that it was safe to proceed. However, decision was made to defer | | anticoagulation during the procedure for safety. The right brachiocephalic and | | subclavian occlusions were first predilated with a 4 mm angioplasty balloon. Serial | | prolonged angioplasty was then performed with 8 mm angioplasty balloon in the right | | brachiocephalic and subclavian veins followed x 15 mm angioplasty balloon in the | | brachiocephalic vein and 10 mm angioplasty balloon in the right subclavian vein. Flow | | was restored but there was significant recoil. Discussion by phone with Dr. Meyer, | | vascular surgery, who agreed stent placement was appropriate. A 14 mm x 60 mm | | self-expanding stent was deployed from the central aspect of the occlusion in the | | brachiocephalic vein into the subclavian vein. A 12 mm x 40 mm overlapping | | self-expanding stent was then deployed in the subclavian vein to cover the full extent | | of the occlusion. Follow-up venogram was performed which showed improvement in the | | caliber. There was still some degree of recoil but given the hemopericardium, decision | | was made to perform no further dilation at this time. The catheters and wires were | | removed. The right basilic sheath was removed while simultaneously deploying a 3-0 | | Vicryl pursestring suture for immediate hemostasis. The left groin sheath was removed | | and manual compression was applied until hemostasis was achieved. Findings: As on prior | | day's venogram, there is occlusion of the right brachiocephalic, right subclavian and | | central right axillary veins. There is marked chest wall and neck collateralization. The | | right internal jugular vein does not opacify. The central superior vena cava has | | moderate-severe stenosis as on prior day's CT. Contrast injection from lower access | | during the recanalization attempt appears to opacify the left brachiocephalic vein area | | however, on subsequent real-time fluoroscopy, it is apparent that contrast also | | opacified the pericardium. Following prolonged serial balloon angioplasty and right | | brachiocephalic, subclavian and axillary veins as described, there still remains | | significant recoil but episcopalian of in-line flow. Following provisional stent | | placements, the caliber of the treated segments is much improved but still undersized | | compared to the true caliber of the stents. There is complete resolution of collateral | | neck and chest wall collateral filling. Contrast dilution from competitive left | | brachiocephalic inflow is noted at the central aspect of the brachiobasilic stent. | | Complication: Hemopericardium treated with pericardial drain IMPRESSION: 1. Successful | | recanalization with angioplasty and provisional stent placement of subacute axillary | | and chronic right brachiocephalic, subclavian venous occlusions as described. May | | proceed with dialysis via brachiobasilic fistula.2. Complication of hemopericardium | | treated with pericardial drain. The appreciated assistance of Dr. Posada. Electronically | | signed by Jimenez Garnica MD on 09/11/2016 8:53 PM | + + Echo Limited (09/11/2016 5:52 PM PDT) + + | Specimen | + + | | + + + + + | Impressions | Performed At | + + + | 1. There is a trivial pericardial effusion present. | | + + + + + + | Narrative | Performed At | + + + | Patient Name: CAROL POTTER Date of : 1965 | | | Performing Physician: Flory Razo MD | | | | | | INDICATIONS r/o pericardial effusion CONCLUSIONS | | | 1. There is a trivial pericardial effusion present. | | | FINDINGS -------- Pericardium: There is a trivial pericardial | | | effusion present. MEASUREMENTS Manager Hvac: CM | | | Authenticated by: Flory Razo MD Report Date/Time: 09-23-2016 | | | 17:12:08 | | + + + + + | Procedure Note | + + | Khalif Palm - 02/04/2019 10:13 PM PDT | | Patient Name: CAROL POTTER | | Date of : 1965 | | | | | | | | Performing Physician: Flory Razo MD | | | | INDICATIONS | | | | r/o pericardial effusion | | | | CONCLUSIONS | | | | 1. There is a trivial pericardial effusion present. | | | | FINDINGS | | -------- | | Pericardium: There is a trivial pericardial effusion present. | | | | MEASUREMENTS | | | | | | Manager Hvac: CM | | Authenticated by: Flory Razo MD | | Report Date/Time: 09-23-2016 17:12:08 | | | | IMPRESSION: | | 1. There is a trivial pericardial effusion present. | + + CV CARDIAC PROCEDURE (09/11/2016 5:35 PM PDT) + + | Specimen | + + | | + + + + + | Narrative | Performed At | + + + | | | | | | | DATE OF SERVICE September 11, 2016 BRIEF HISTORY Mr. 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 Emergent | | | pericardiocentesis was then done. For details regarding his | | | presentation, kindly refer to Dr. Garnica's note. PROCEDURE | | | Emergent pericardiocentesis with removal of 150 mL of bloody fluid. | | | TECHNIQUE The patient was quickly prepped and draped for | | | pericardiocentesis after an echocardiogram suggested the presence of | | | pericardial fluid. Hemodynamically, again his blood pressure did | | | drop, although he continues to be responsive. The subxiphoid area was | | | anesthetized with 1% lidocaine with epinephrine and incision was | | | made. A long pericardial needle was then advanced toward the left | | | nipple and was inserted into the pericardium with flow back | | | consistent with bloody fluid. J-tipped wire was then advanced and | | | placed laterally and the dilator was then advanced over the wire. | | | Pigtail catheter was then advanced into the pericardium and attached | | | to the pressure transducer, and this showed near negative pressure, | | | indicating pericardial sac rather than RV. Then 150 mL of bloody | | | fluid was removed and then the pigtail catheter was attached to | | | Vacutainer. Blood pressure improved significantly thereafter. | | | CONCLUSION Successful pericardiocentesis done on emergent basis for | | | treatment of pericardial tamponade. Read by BENY POSADA MD | | | 09/11/2016 07:43 P Electronically signed by Beny Posada MD on | | | 10/01/2016 5:55 PM | | + + + + + | Procedure Note | + + | Néstor Khalif Conversion - 02/11/2019 3:21 PM PDT | | | | | | DATE OF SERVICE | | September 11, 2016 | | | | BRIEF HISTORY | | Mr. 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 Emergent pericardiocentesis | | was then done. For details regarding his presentation, kindly refer to | | Danika's note. | | | | PROCEDURE | | Emergent pericardiocentesis with removal of 150 mL of bloody fluid. | | | | TECHNIQUE | | The patient was quickly prepped and draped for pericardiocentesis after an | | echocardiogram suggested the presence of pericardial fluid. | | Hemodynamically, again his blood pressure did drop, although he continues | | to be responsive. The subxiphoid area was anesthetized with 1% lidocaine | | with epinephrine and incision was made. A long pericardial needle was then | | advanced toward the left nipple and was inserted into the pericardium with | | flow back consistent with bloody fluid. J-tipped wire was then advanced and | | placed laterally and the dilator was then advanced over the wire. Pigtail | | catheter was then advanced into the pericardium and attached to the | | pressure transducer, and this showed near negative pressure, indicating | | pericardial sac rather than RV. Then 150 mL of bloody fluid was removed and | | then the pigtail catheter was attached to Vacutainer. Blood pressure | | improved significantly thereafter. | | | | CONCLUSION | | Successful pericardiocentesis done on emergent basis for treatment of | | pericardial tamponade. | | | | Read by BENY POSADA MD 09/11/2016 07:43 P | | | | | + + ECHO Complete (09/11/2016 9:35 AM PDT) + + | Specimen | + + | | + + + + + | Impressions | Performed At | + + + | 1. Essentially normal study. | | + + + + + + | Narrative | Performed At | + + + | Patient Name: CAROL POTTER Date of : 1965 | | | Performing Physician: Kevin Ellis | | | MD | | | ------REPORT ADDENDED------ INDICATIONS SHORTNESS OF | | | BREATH, ESR, AV FISTULA ISSUES CONCLUSIONS 1. | | | Essentially normal study. FINDINGS -------- ECG rhythm: Sinus | | | rhythm. Study: A 2-dimensional transthoracic echocardiogram with | | | m-mode, spectral and color flow Doppler was perfomed. Study: This was | | | a technically adequate study. Left Ventricle: Overall left | | | ventricular systolic function is normal with, an EF between 55 - 60 %. | | | Left Ventricle: The left ventricle cavity size is normal. Left | | | Ventricle: Left ventricular wall thickness is normal. Right | | | Ventricle: The right ventricle is normal in size. Left Atrium: The | | | left atrium is normal in size. Right Atrium: The right atrium is | | | normal in size. Aortic Valve: The aortic valve is trileaflet, and | | | appears anatomically normal. No aortic stenosis or regurgitation. | | | Mitral Valve: The mitral valve is normal. Mitral Valve: There is | | | trace mitral regurgitation. Tricuspid Valve: The tricuspid valve | | | appears structurally normal. Tricuspid Valve: Trace tricuspid | | | regurgitation present. Tricuspid Valve: Right ventricular systolic | | | pressure (pulmonary artery systolic pressure) is normal at < 35 mmHg. | | | Pulmonic Valve: The pulmonic valve was not well visualized. | | | Pericardium: There is no pericardial effusion. IVC/Hepatic Veins: The | | | IVC is small (<1.5cm) and collapses with sniff, consistent with | | | central venous pressures of 0-5mmHg. MEASUREMENTS | | | Ao asc: 3.31 cm Ao sinus: 2.[address] junct: 2.97 cm | | | IVC: 1.36 cm LA Major: 4.85 cm EDV(Teich): 130.29 ml IVSd: | | | 0.73 cm LVIDd: 5.21 cm LVPWd: 0.95 cm LVOT Diam: 2.23 | | | cm %FS: 31.08 % EF(Teich): 58.41 % ESV(Teich): 54.18 ml | | | IVSs: 0.83 cm LVIDs: 3.59 cm LVPWs: 1.23 cm SV(Teich): | | | 76.11 ml RA Major: 4.85 cm RVIDd: 2.78 cm LAESV(A-L): | | | 51.17 ml LAESV Index (A-L): 26.24 ml/m2 LAAs A2C: 16.62 cm2 | | | LAESV A-L A2C: 49.08 ml LALs A2C: 4.77 cm LAAs A4C: 17.33 | | | cm2 LAESV A-L A4C: 53.09 ml LALs A4C: 4.80 cm Ao Diam: | | | 4.05 cm AV Cusp: 2.47 cm LA Diam: 3.09 cm LA/Ao: 0.76 | | | TAPSE: 2.72 cm IVC diameter: 1.44 cm IVC collapse: 0.39 cm | | | IVC % collapse: 71.27 % HR: 82.96 BPM AV maxP.62 mmHg | | | AV meanP.44 mmHg AV Vmax: 1.70 m/s AV Vmean: 1.32 m/s | | | AV VTI: 38.03 cm JACKIE Vmax: 2.75 cm2 JACKIE (VTI): 2.89 cm2 | | | AVAI Vmax: 0.00 cm2/m2 AVAI (VTI): 0.00 cm2/m2 LVCI Dopp: | | | 4.59 l/minm2 LVCO Dopp: 8.95 l/min HR: 81.40 BPM LVOT maxPG: | | | 5.74 mmHg LVOT meanP.12 mmHg LVSI Dopp: 56.39 ml/m2 | | | LVSV Dopp: 109.96 ml LVOT Vmax: 1.19 m/s LVOT Vmean: 0.82 | | | m/s LVOT VTI: 28.00 cm MCO: 449.82 ms MV A Lenard: 1.32 m/s | | | MV DecT: 149.51 ms MV E Lenard: 1.16 m/s MV E/A Ratio: 0.88 | | | MV PHT: 46.03 ms MVA By PHT: 4.77 cm2 MV A Dur: 134.94 ms | | | Septal e': 0.06 m/s Septal E/e': 17.33 Lateral e': 0.10 m/s | | | Lateral E/e': 11.56 P Vein A: 0.36 m/s P Vein A Dur: | | | 86.50 ms P Vein D: 0.42 m/s P Vein S/D Ratio: 1.29 P Vein S: | | | 0.54 m/s HR: 79.17 BPM PV maxP.23 mmHg PV meanPG: | | | 1.92 mmHg PV Vmax: 0.89 m/s PV Vmean: 0.66 m/s PV VTI: | | | 20.34 cm RV S': 0.14 m/s TV A Lenard: 0.84 m/s TV Dec Gentry: | | | 3.82 m/s2 TV Dec Time: 202.99 ms TV E Lenard: 0.77 m/s TV E/A | | | Ratio: 0.91 Manager Hvac: PAUL Authenticated by: Kevin | | | Caleb CABRERA Report Date/Time: 09-11-2016 12:56:14 | | + + + + + | Procedure Note | + + | Khalif Palm Conversion - 02/04/2019 10:13 PM PDT Patient Name: Mohinder POTTER of | | : 1965 Performing Physician: Kevin Ellis | | ------REPORT | | ADDENDED------INDICATIONS SHORTNESS OF BREATH, ESR, AV FISTULA ISSUES | | CONCLUSIONS 1. Essentially normal study. FINDINGS--------ECG rhythm: Sinus | | rhythm.Study: A 2-dimensional transthoracic echocardiogram with m-mode, spectral and | | color flow Doppler was perfomed.Study: This was a technically adequate study.Left | | Ventricle: Overall left ventricular systolic function is normal with, an EF between 55 - | | 60 %.Left Ventricle: The left ventricle cavity size is normal.Left Ventricle: Left | | ventricular wall thickness is normal.Right Ventricle: The right ventricle is normal in | | size.Left Atrium: The left atrium is normal in size.Right Atrium: The right atrium is | | normal in size.Aortic Valve: The aortic valve is trileaflet, and appears anatomically | | normal. No aortic stenosis or regurgitation.Mitral Valve: The mitral valve is | | normal.Mitral Valve: There is trace mitral regurgitation.Tricuspid Valve: The tricuspid | | valve appears structurally normal.Tricuspid Valve: Trace tricuspid regurgitation | | present.Tricuspid Valve: Right ventricular systolic pressure (pulmonary artery systolic | | pressure) is normal at < 35 mmHg.Pulmonic Valve: The pulmonic valve was not well | | visualized.Pericardium: There is no pericardial effusion.IVC/Hepatic Veins: The IVC is | | small (<1.5cm) and collapses with sniff, consistent with central venous pressures of | | 0-5mmHg. MEASUREMENTS Ao asc: 3.31 cmAo sinus: 2.[address] junct: | | 2.97 cmIVC: 1.36 cmLA Major: 4.85 cmEDV(Teich): 130.29 mlIVSd: 0.73 cmLVIDd: | | 5.21 cmLVPWd: 0.95 cmLVOT Diam: 2.23 cm%FS: 31.08 %EF(Teich): 58.41 %ESV(Teich): | | 54.18 mlIVSs: 0.83 cmLVIDs: 3.59 cmLVPWs: 1.23 cmSV(Teich): 76.11 mlRA Major: | | 4.85 cmRVIDd: 2.78 cmLAESV(A-L): 51.17 mlLAESV Index (A-L): 26.24 ml/m2LAAs | | A2C: 16.62 [id number] A-L A2C: 49.08 mlLALs A2C: 4.77 cmLAAs A4C: 17.33 [id number] | | A-L A4C: 53.09 mlLALs A4C: 4.80 cmAo Diam: 4.05 cmAV Cusp: 2.47 cmLA Diam: | | 3.09 cmLA/Ao: 0.76TAPSE: 2.72 cmIVC diameter: 1.44 cmIVC collapse: 0.39 cmIVC % | | collapse: 71.27 %HR: 82.96 BPMAV maxP.62 mmHgAV meanP.44 mmHgAV Vmax: | | 1.70 m/[place] Vmean: 1.32 m/[place] VTI: 38.03 cmAVA Vmax: 2.75 cm2AVA (VTI): 2.89 | | [id number] Vmax: 0.00 cm2/m2AVAI (VTI): 0.00 cm2/m2LVCI Dopp: 4.59 l/[id number] Dopp: | | 8.95 l/minHR: 81.40 BPMLVOT maxP.74 mmHgLVOT meanP.12 mmHgLVSI Dopp: | | 56.39 ml/m2LVSV Dopp: 109.96 mlLVOT Vmax: 1.19 m/sLVOT Vmean: 0.82 m/sLVOT VTI: | | 28.00 cmMCO: 449.82 msMV A Lenard: 1.32 m/sMV DecT: 149.51 msMV E Lenard: 1.16 m/sMV | | E/A Ratio: 0.88MV PHT: 46.03 msMVA By PHT: 4.77 cm2MV A Dur: 134.94 msSeptal e': | | 0.06 m/sSeptal E/e': 17.33Lateral e': 0.10 m/sLateral E/e': 11.56P Vein A: | | 0.36 m/sP Vein A Dur: 86.50 msP Vein D: 0.42 m/sP Vein S/D Ratio: 1.29P Vein S: | | 0.54 m/sHR: 79.17 BPMPV maxP.23 mmHgPV meanP.92 mmHgPV Vmax: 0.89 m/sPV | | Vmean: 0.66 m/sPV VTI: 20.34 cmRV S': 0.14 m/sTV A Lenard: 0.84 m/sTV Dec Gentry: | | 3.82 m/s2TV Dec Time: 202.99 msTV E Lenard: 0.77 m/sTV E/A Ratio: 0.91 Manager Hvac: | | KVWAuthenticated by: Kevin Ellis MDReport Date/Time: 09-11-2016 12:56:14 | | IMPRESSION: 1. Essentially normal study. | |Ao asc: 3.31 cm | |Ao sinus: 2.39 cm | |Ao st junct: 2.97 cm | |IVC: 1.36 cm | |LA Major: 4.85 cm | |EDV(Teich): 130.29 ml | |IVSd: 0.73 cm | |LVIDd: 5.21 cm | |LVPWd: 0.95 cm | |LVOT Diam: 2.23 cm | |%FS: 31.08 % | |EF(Teich): 58.41 % | |ESV(Teich): 54.18 ml | |IVSs: 0.83 cm | |LVIDs: 3.59 cm | |LVPWs: 1.23 cm | |SV(Teich): 76.11 ml | |RA Major: 4.85 cm | |RVIDd: 2.78 cm | |LAESV(A-L): 51.17 ml | |LAESV Index (A-L): 26.24 ml/m2 | |LAAs A2C: 16.62 cm2 | |LAESV A-L A2C: 49.08 ml | |LALs A2C: 4.77 cm | |LAAs A4C: 17.33 cm2 | |LAESV A-L A4C: 53.09 ml | |LALs A4C: 4.80 cm | |Ao Diam: 4.05 cm | |AV Cusp: 2.47 cm | |LA Diam: 3.09 cm | |LA/Ao: 0.76 | |TAPSE: 2.72 cm | |IVC diameter: 1.44 cm | |IVC collapse: 0.39 cm | |IVC % collapse: 71.27 % | |HR: 82.96 BPM | |AV maxP.62 mmHg | |AV meanP.44 mmHg | |AV Vmax: 1.70 m/s | |AV Vmean: 1.32 m/s | |AV VTI: 38.03 cm | |JACKIE Vmax: 2.75 cm2 | |JACKIE (VTI): 2.89 cm2 | |AVAI Vmax: 0.00 cm2/m2 | |AVAI (VTI): 0.00 cm2/m2 | |LVCI Dopp: 4.59 l/minm2 | |LVCO Dopp: 8.95 l/min | |HR: 81.40 BPM | |LVOT maxP.74 mmHg | |LVOT meanP.12 mmHg | |LVSI Dopp: 56.39 ml/m2 | |LVSV Dopp: 109.96 ml | |LVOT Vmax: 1.19 m/s | |LVOT Vmean: 0.82 m/s | |LVOT VTI: 28.00 cm | |MCO: 449.82 ms | |MV A Lenard: 1.32 m/s | |MV DecT: 149.51 ms | |MV E Lenard: 1.16 m/s | |MV E/A Ratio: 0.88 | |MV PHT: 46.03 ms | |MVA By PHT: 4.77 cm2 | |MV A Dur: 134.94 ms | |Septal e': 0.06 m/s | |Septal E/e': 17.33 | |Lateral e': 0.10 m/s | |Lateral E/e': 11.56 | |P Vein A: 0.36 m/s | |P Vein A Dur: 86.50 ms | |P Vein D: 0.42 m/s | |P Vein S/D Ratio: 1.29 | |P Vein S: 0.54 m/s | |HR: 79.17 BPM | |PV maxP.23 mmHg | |PV meanP.92 mmHg | |PV Vmax: 0.89 m/s | |PV Vmean: 0.66 m/s | |PV VTI: 20.34 cm | |RV S': 0.14 m/s | |TV A Lenard: 0.84 m/s | |TV Dec Gentry: 3.82 m/s2 | |TV Dec Time: 202.99 ms | |TV E Lenard: 0.77 m/s | |TV E/A Ratio: 0.91 | | | |Manager Hvac: SIRIW | |Authenticated by: Kevin Ellis MD | |Report Date/Time: 09-11-2016 12:56:14 | | | |IMPRESSION: | |1. Essentially normal study. | + + External Lab: CBC (09/11/2016 6:27 AM PDT) + + + + + + | Component | Value | Ref Range | Performed | Pathologist | | | | | At | Signature | + + + + + + | WBC | 9.65Comment: Testing | 3.80 - 11.00 | EXTERNAL | | | | performed at [facility] [place] | K/uL | LAB | | | | [address];[place] | | | | | | [address] | | | | + + + + + + | Non- | 3.18 (L)Comment: Testing | 4.20 - 5.70 | EXTERNAL | | | Red Blood | performed at [facility] [place] | M/uL | LAB | | | Cells | [address];[place] | | | | | Counted | [id number] | | | | + + + + + + | Hemoglobin | 9.6 (L)Comment: Testing | 13.2 - 17.0 | EXTERNAL | | | | performed at [facility] [place] | g/dL | LAB | | | | [address];[place] | | | | | | [address] | | | | + + + + + + | Hematocrit, | 28.2 (L)Comment: Testing | 39.0 - 50.0 % | EXTERNAL | | | POC | performed at [facility] [place] | | LAB | | | | [address];[place] | | | | | | [address] | | | | + + + + + + | MCV | 88.8Comment: Testing | 80.0 - 100.0 fl | EXTERNAL | | | | performed at [facility] [place] | | LAB | | | | [address];[place] | | | | | | [address] | | | | + + + + + + | MCH | 30.2Comment: Testing | 27.0 - 34.0 pg | EXTERNAL | | | | performed at [facility] [place] | | LAB | | | | [address];[place] | | | | | | [address] | | | | + + + + + + | MCHC | 34.0Comment: Testing | 32.0 - 35.5 | EXTERNAL | | | | performed at [facility] | g/dL | LAB | | | | [address];[place] | | | | | | [address] | | | | + + + + + + | RDW-CV | 52.9Comment: Testing | 37 - 53 fl | EXTERNAL | | | | performed at [facility] [place] | | LAB | | | | [address];[place] | | | | | | [address] | | | | + + + + + + | Platelet | 239Comment: Testing | 150 - 400 K/uL | EXTERNAL | | | Count | performed at [facility] [place] | | LAB | | | Plasma | [address];[place] | | | | | | [address] | | | | + + + + + + | MPV | 6.1Comment: Testing | fl | EXTERNAL | | | | performed at [facility] | | LAB | | | | [address];[place] | | | | | | [address] | | | | + + + + + + | Differentia | AUTOMATEDComment: | | EXTERNAL | | | l Type | Testing performed at | | LAB | | | | [facility];[place] [address] | | | | + + + + + + | % Segmented | 71.63Comment: Testing | % | EXTERNAL | | | | performed at [facility] | | LAB | | | Neutrophils | [address];[place] | | | | | | [address] | | | | + + + + + + | % | 9.51Comment: Testing | % | EXTERNAL | | | Lymphocytes | performed at [facility] [place] | | LAB | | | | [address];[place] | | | | | | [address] | | | | + + + + + + | % Monocytes | 10.36Comment: Testing | % | EXTERNAL | | | | performed at [facility] [place] | | LAB | | | | [address];[place] | | | | | | [address] | | | | + + + + + + | % | 7.66Comment: Testing | % | EXTERNAL | | | Eosinophils | performed at [facility] | | LAB | | | | [address];[place] | | | | | | [address] | | | | + + + + + + | % Basophils | 0.84Comment: Testing | % | EXTERNAL | | | | performed at [facility] | | LAB | | | | [address];[place] | | | | | | [address] | | | | + + + + + + | Absolute | 6.92Comment: Testing | 1.90 - 7.40 | EXTERNAL | | | Segmented | performed at [facility] [place] | K/uL | LAB | | | Neutrophils | [address];[place] | | | | | | [address] | | | | + + + + + + | Absolute | 0.92 (L)Comment: Testing | 1.00 - 3.90 | EXTERNAL | | | Lymphocytes | performed at [facility] [place] | K/uL | LAB | | | | [address];[place] | | | | | | [address] | | | | + + + + + + | Absolute | 1.00 (H)Comment: Testing | 0.00 - 0.80 | EXTERNAL | | | Monocytes | performed at [facility] [place] | K/uL | LAB | | | | [address];[place] | | | | | | [address] | | | | + + + + + + | Absolute | 0.74 (H)Comment: Testing | 0.00 - 0.50 | EXTERNAL | | | Eosinophils | performed at [facility] [place] | K/uL | LAB | | | | [address];[place] | | | | | | [address] | | | | + + + + + + | Absolute | 0.08Comment: Testing | 0.00 - 0.10 | EXTERNAL | | | Basophils | performed at [facility] [place] | K/uL | LAB | | | | [address];[place], [place] | | | | | | [address] | | | | + + + + + + + + | Specimen | + + | Blood specimen | | (specimen) | + + + +---------+ + + | Performing | Address | City/State/Zipcode | Phone Number | | Organization | | | | + +---------+ + + | EXTERNAL LAB | | | | + +---------+ + + Phosphorus (09/11/2016 6:27 AM PDT) + + + + + + | Component | Value | Ref Range | Performed | Pathologist | | | | | At | Signature | + + + + + + | PHOSPHORUS | 3.5Comment: Testing | 2.3 - 4.8 mg/dL | EXTERNAL | | | | performed at [facility] [place] | | LAB | | | | [address];[place] | | | | | | [address] | | | | + + + + + + + + | Specimen | + + | Blood specimen | | (specimen) | + + + +---------+ + + | Performing | Address | City/State/Zipcode | Phone Number | | Organization | | | | + +---------+ + + | EXTERNAL LAB | | | | + +---------+ + + Magnesium (09/11/2016 6:27 AM PDT) + + + + + + | Component | Value | Ref Range | Performed | Pathologist | | | | | At | Signature | + + + + + + | Magnesium | 2.3Comment: Testing | 1.7 - 2.4 mg/dL | EXTERNAL | | | | performed at [facility] [place] | | LAB | | | | [address];[place] | | | | | | [address] | | | | + + + [...] + +---------+ + + Comprehensive Metabolic Panel (09/11/2016 6:27 AM PDT) + + + + + + | Component | Value | Ref Range | Performed | Pathologist | | | | | At | Signature | + + + + + + | Na | 132 (L)Comment: Testing | 135 - 145 | EXTERNAL | | | | performed at [facility] | mmol/L | LAB | | | | [address];[place] | | | | | | [address] | | | | + + + + + + | K | 4.5Comment: Testing | 3.5 - 4.9 | EXTERNAL | | | | performed at [facility] | mmol/L | LAB | | | | [address];[place] | | | | | | [address] | | | | + + + + + + | Cl | 95 (L)Comment: Testing | 99 - 109 mmol/L | EXTERNAL | | | | performed at [facility] | | LAB | | | | [address];[place] | | | | | | [address] | | | | + + + + + + | CO2 | 28Comment: Testing | 23 - 32 mmol/L | EXTERNAL | | | | performed at [facility] | | LAB | | | | [address];[place] | | | | | | [address] | | | | + + + + + + | Anion Gap | 14Comment: Testing | 5 - 20 mmol/L | EXTERNAL | | | | performed at [facility] | | LAB | | | | [address];[place] | | | | | | [address] | | | | + + + + + + | Glucose, | 100 (H)Comment: Testing | 65 - 99 mg/dL | EXTERNAL | | | Fasting | performed at [facility] | | LAB | | | | [address];[place] | | | | | | [address] | | | | + + + + + + | BUN | 40 (H)Comment: Testing | 8 - 25 mg/dL | EXTERNAL | | | | performed at [facility] [place] | | LAB | | | | [address];[place] | | | | | | [address] | | | | + + + + + + | Creatinine | 6.4 (H)Comment: Testing | 0.70 - 1.30 | EXTERNAL | | | | performed at [facility] | mg/dL | LAB | | | | [address];[place] | | | | | | [address] | | | | + + + + + + | BUN/Creatin | 6Comment: Testing | | EXTERNAL | | | ine Ratio | performed at [facility] | | LAB | | | | [address];[place] | | | | | | [address] | | | | + + + + + + | Calcium | 7.3 (L)Comment: Testing | 8.5 - 10.5 | EXTERNAL | | | | performed at [facility] [place] | mg/dL | LAB | | | | [address];[place] | | | | | | [address] | | | | + + + + + + | Protein, | 6.8Comment: Testing | 6.3 - 8.2 g/dL | EXTERNAL | | | Total | performed at [facility] | | LAB | | | | [address];[place] | | | | | | [address] | | | | + + + + + + | Albumin | 2.9 (L)Comment: Testing | 3.6 - 5.0 g/dL | EXTERNAL | | | | performed at [facility] [place] | | LAB | | | | [address];[place] | | | | | | [address] | | | | + + + + + + | Globulin | 3.9Comment: Testing | 1.3 - 4.9 g/dL | EXTERNAL | | | | performed at [facility] | | LAB | | | | [address];[place] | | | | | | [address] | | | | + + + + + + | A/G Ratio | 0.8 (L)Comment: Testing | 1.0 - 2.4 | EXTERNAL | | | | performed at [facility] | | LAB | | | | [address];[place] | | | | | | [address] | | | | + + + + + + | Bilirubin | 0.5Comment: Testing | 0.1 - 1.5 mg/dL | EXTERNAL | | | Total | performed at [facility] | | LAB | | | | [address];[place] | | | | | | [address] | | | | + + + + + + | ALP, | 82Comment: Testing | 35 - 115 U/L | EXTERNAL | | | External | performed at [facility] | | LAB | | | | [address];[place] | | | | | | [address] | | | | + + + + + + | AST | 14Comment: Testing | 10 - 45 U/L | EXTERNAL | | | | performed at [facility] | | LAB | | | | [address];[place] | | | | | | [address] | | | | + + + + + + | ALT | 17Comment: Testing | 10 - 65 U/L | EXTERNAL | | | | performed at [facility] | | LAB | | | | [facility], [place] | | | | | | [address] | | | | + + + + + + | Estimated | 10 (L)Comment: GFR <60: | mL/min/1.73m2 | EXTERNAL [...] | | | | | | at [facility] [facility] | | | | | | [address];[place] [address] | | | | + + + [...] + +---------+ + + External Lab: CBC (09/10/2016 1:42 PM PDT) + + + + + + | Component | Value | Ref Range | Performed | Pathologist | | | | | At | Signature | + + + + + + | WBC | 9.25Comment: Testing | 3.80 - 11.00 | EXTERNAL | | | | performed at [facility] | K/uL | LAB | | | | [address];[place] | | | | | | [address] | | | | + + + + + + | Non- | 3.28 (L)Comment: Testing | 4.20 - 5.70 | EXTERNAL | | | Red Blood | performed at [facility] | M/uL | LAB | | | Cells | [address];[place] | | | | | Counted | [address] | | | | + + + + + + | Hemoglobin | 10.1 (L)Comment: Testing | 13.2 - 17.0 | EXTERNAL | | | | performed at [facility] | g/dL | LAB | | | | [address];[place] | | | | | | [address] | | | | + + + + + + | Hematocrit, | 29.0 (L)Comment: Testing | 39.0 - 50.0 % | EXTERNAL | | | POC | performed at [facility] | | LAB | | | | [address];[place] | | | | | | [address] | | | | + + + + + + | MCV | 88.5Comment: Testing | 80.0 - 100.0 fl | EXTERNAL | | | | performed at [facility] | | LAB | | | | [address];[place] | | | | | | [address] | | | | + + + + + + | MCH | 30.9Comment: Testing | 27.0 - 34.0 pg | EXTERNAL | | | | performed at [facility] | | LAB | | | | [address];[place] | | | | | | [address] | | | | + + + + + + | MCHC | 34.9Comment: Testing | 32.0 - 35.5 | EXTERNAL | | | | performed at [facility] | g/dL | LAB | | | | [address];[place] | | | | | | [address] | | | | + + + + + + | RDW-CV | 51.6Comment: Testing | 37 - 53 fl | EXTERNAL | | | | performed at [facility] | | LAB | | | | [address];[place] | | | | | | [address] | | | | + + + + + + | Platelet | 223Comment: Testing | 150 - 400 K/uL | EXTERNAL | | | Count | performed at [facility] | | LAB | | | Plasma | [address];[place] | | | | | | [address] | | | | + + + + + + | MPV | 6.5Comment: Testing | fl | EXTERNAL | | | | performed at [facility] | | LAB | | | | [address];[place] | | | | | | [address] | | | | + + + + + + | Differentia | AUTOMATEDComment: | | EXTERNAL | | | l Type | Testing performed at | | LAB | | | | [facility];[place] [address] | | | | + + + + + + | % Segmented | 73.14Comment: Testing | % | EXTERNAL | | | | performed at [facility] | | LAB | | | Neutrophils | [address];[place] | | | | | | [address] | | | | + + + + + + | % | 8.28Comment: Testing | % | EXTERNAL | | | Lymphocytes | performed at [facility] | | LAB | | | | [address];[place] | | | | | | [address] | | | | + + + + + + | % Monocytes | 10.77Comment: Testing | % | EXTERNAL | | | | performed at [facility] | | LAB | | | | [address];[place] | | | | | | [address] | | | | + + + + + + | % | 7.40Comment: Testing | % | EXTERNAL | | | Eosinophils | performed at [facility] | | LAB | | | | [address];[place] | | | | | | [address] | | | | + + + + + + | % Basophils | 0.41Comment: Testing | % | EXTERNAL | | | | performed at [facility] | | LAB | | | | [address];[place] | | | | | | [address] | | | | + + + + + + | Absolute | 6.77Comment: Testing | 1.90 - 7.40 | EXTERNAL | | | Segmented | performed at [facility] | K/uL | LAB | | | Neutrophils | [address];[place] | | | | | | [address] | | | | + + + + + + | Absolute | 0.77 (L)Comment: Testing | 1.00 - 3.90 | EXTERNAL | | | Lymphocytes | performed at [facility] | K/uL | LAB | | | | [address];[place] | | | | | | [address] | | | | + + + + + + | Absolute | 1.00 (H)Comment: Testing | 0.00 - 0.80 | EXTERNAL | | | Monocytes | performed at [facility] | K/uL | LAB | | | | [address];[place] | | | | | | [address] | | | | + + + + + + | Absolute | 0.68 (H)Comment: Testing | 0.00 - 0.50 | EXTERNAL | | | Eosinophils | performed at [facility] | K/uL | LAB | | | | [address];[place] | | | | | | [address] | | | | + + + + + + | Absolute | 0.04Comment: Testing | 0.00 - 0.10 | EXTERNAL | | | Basophils | performed at [facility] | K/uL | LAB | | | | [address];[place] | | | | | | [address] | | | | + + + + + + + + | Specimen | + + | Blood specimen | | (specimen) | + + + +---------+ + + | Performing | Address | City/State/Zipcode | Phone Number | | Organization | | | | + +---------+ + + | EXTERNAL LAB | | | | + +---------+ + + Phosphorus (09/10/2016 1:42 PM PDT) + + + + + + | Component | Value | Ref Range | Performed | Pathologist | | | | | At | Signature | + + + + + + | PHOSPHORUS | 3.1Comment: Testing | 2.3 - 4.8 mg/dL | EXTERNAL | | | | performed at [facility] | | LAB | | | | [address];[place], [place] | | | | | | [address] | | | | + + + + + + + + | Specimen | + + | Blood specimen | | (specimen) | + + + +---------+ + + | Performing | Address | City/State/Zipcode | Phone Number | | Organization | | | | + +---------+ + + | EXTERNAL LAB | | | | + +---------+ + + Magnesium (09/10/2016 1:42 PM PDT) + + + + + + | Component | Value | Ref Range | Performed | Pathologist | | | | | At | Signature | + + + + + + | Magnesium | 2.4Comment: Testing | 1.7 - 2.4 mg/dL | EXTERNAL | | | | performed at [facility] | | LAB | | | | [address];[place] | | | | | | [address] | | | | + + + [...] + +---------+ + + Comprehensive Metabolic Panel (09/10/2016 1:42 PM PDT) + + + + + + | Component | Value | Ref Range | Performed | Pathologist | | | | | At | Signature | + + + + + + | Na | 135Comment: Testing | 135 - 145 | EXTERNAL | | | | performed at [facility] | mmol/L | LAB | | | | [address];[place] | | | | | | [address] | | | | + + + + + + | K | 3.8Comment: Testing | 3.5 - 4.9 | EXTERNAL | | | | performed at [facility] | mmol/L | LAB | | | | [address];[place] | | | | | | [address] | | | | + + + + + + | Cl | 97 (L)Comment: Testing | 99 - 109 mmol/L | EXTERNAL | | | | performed at [facility] | | LAB | | | | [address];[place] | | | | | | [address] | | | | + + + + + + | CO2 | 28Comment: Testing | 23 - 32 mmol/L | EXTERNAL | | | | performed at [facility] | | LAB | | | | [address];[place] | | | | | | [address] | | | | + + + + + + | Anion Gap | 14Comment: Testing | 5 - 20 mmol/L | EXTERNAL | | | | performed at [facility] | | LAB | | | | [address];[place] | | | | | | [address] | | | | + + + + + + | Glucose, | 120 (H)Comment: Testing | 65 - 99 mg/dL | EXTERNAL | | | Fasting | performed at [facility] | | LAB | | | | [address];[place] | | | | | | [address] | | | | + + + + + + | BUN | 27 (H)Comment: Testing | 8 - 25 mg/dL | EXTERNAL | | | | performed at [facility] | | LAB | | | | [address];[place] | | | | | | [address] | | | | + + + + + + | Creatinine | 4.5 (H)Comment: Testing | 0.70 - 1.30 | EXTERNAL | | | | performed at [facility] | mg/dL | LAB | | | | [address];[place] | | | | | | [address] | | | | + + + + + + | BUN/Creatin | 6Comment: Testing | | EXTERNAL | | | ine Ratio | performed at [facility] | | LAB | | | | [address];[place] | | | | | | [address] | | | | + + + + + + | Calcium | 7.8 (L)Comment: Testing | 8.5 - 10.5 | EXTERNAL | | | | performed at [facility] | mg/dL | LAB | | | | [address];[place] | | | | | | [address] | | | | + + + + + + | Protein, | 7.1Comment: Testing | 6.3 - 8.2 g/dL | EXTERNAL | | | Total | performed at [facility] | | LAB | | | | [address];[place] | | | | | | [address] | | | | + + + + + + | Albumin | 3.1 (L)Comment: Testing | 3.6 - 5.0 g/dL | EXTERNAL | | | | performed at [facility] | | LAB | | | | [address];[place] | | | | | | [address] | | | | + + + + + + | Globulin | 4.0Comment: Testing | 1.3 - 4.9 g/dL | EXTERNAL | | | | performed at [facility] | | LAB | | | | [address];[place] | | | | | | [address] | | | | + + + + + + | A/G Ratio | 0.8 (L)Comment: Testing | 1.0 - 2.4 | EXTERNAL | | | | performed at [facility] | | LAB | | | | [address];[place] | | | | | | [address] | | | | + + + + + + | Bilirubin | 0.5Comment: Testing | 0.1 - 1.5 mg/dL | EXTERNAL | | | Total | performed at [facility] | | LAB | | | | [address];[place] | | | | | | [address] | | | | + + + + + + | ALP, | 91Comment: Testing | 35 - 115 U/L | EXTERNAL | | | External | performed at [facility] | | LAB | | | | [address];[place] | | | | | | [address] | | | | + + + + + + | AST | 15Comment: Testing | 10 - 45 U/L | EXTERNAL | | | | performed at [facility];[address] | | LAB | | | | [address];[place] | | | | | | [address] | | | | + + + + + + | ALT | 23Comment: Testing | 10 - 65 U/L | EXTERNAL | | | | performed at [facility];[address] | | LAB | | | | [address];[place] | | | | | | [address] | | | | + + + + + + | Estimated | 15 (L)Comment: GFR <60: | mL/min/1.73m2 | EXTERNAL [...] | | | | | | at [facility];[place] [address] | | | | + + + + + + + + | Specimen | + + | Blood specimen | | (specimen) | + + + +---------+ + + | Performing | Address | City/State/Zipcode | Phone Number | | Organization | | | | + +---------+ + + | EXTERNAL LAB | | | | + +---------+ + + CT Chest w Contrast (09/10/2016 12:20 PM PDT) + + | Specimen | + + | | + + + + + | Impressions | Performed At | + + + | 1. 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 2. Severe narrowing of | | | the LEFT subclavian vein as it passes over the LEFT 1st rib. 3. 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 4. Moderate RIGHT axillary | | | lymphadenopathy, probably reactive. 5. Diffuse subcutaneous edema | | | throughout the RIGHT anterior chest wall and the lateral chest wall. | | | 6. 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 7. Mild atelectasis/focal pneumonia | | | in the RIGHT lung base. 8. Mild interstitial pulmonary edema versus | | | chronic bronchitis. | | + + + + + + | Narrative | Performed At | + + + | [facility] CHEST W CONTRAST 09/10/2016 12:20 PM History: | | | 51 years. Male. Failing RIGHT upper arm arteriovenous dialysis | | | fistula. Angioplasty of the RIGHT subclavian vein for stenosis, and | | | placement of RIGHT femoral tunneled dialysis catheter on 09/10/15. 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 Technique: During | | | bolus intravenous administration of 100 cc of nonionic iodine contrast | | | and a single breath hold, 1.25 millimeter thick slices were performed | | | throughout the chest in the axial plane and reconstructed in 5-mm | | | thick slices for display. Additional coronal plane imaging was | | | reconstructed. Radiation dose reduction performed with automated | | | exposure control. Comparison examinations: None. Findings: | | | Diffuse soft tissue subcutaneous edema is noted throughout the RIGHT | | | lateral and anterior chest wall. Large lymph nodes are visualized in | | | the RIGHT axillary region, with normal morphology, probably reactive. | | | Collateral subcutaneous venous circulation is visualized in the | | | anterior upper LEFT RIGHT chest wall. The RIGHT upper arm is above | | | the head and only partially visualized. The RIGHT axillary vein | | | shows normal contrast enhancement. The RIGHT subclavian vein is | | | completely obstructed, just before it passes over the anterior RIGHT | | | 1st rib. The LEFT axillary vein was used for contrast injection | | | and appears to be patent. The LEFT subclavian vein is constricted as | | | it passes over the anterior LEFT 1st rib, best visualized on image 30 | | | series 4. The distal LEFT subclavian vein is normally opacified. | | | The superior vena cava is patent but is constricted or narrowed just | | | before entering the RIGHT atrium, image 107 series 4. This appears | | | to be an fibrotic constriction rather than intraluminal thrombus. | | | There is normal opacification of the azygos vein. The central | | | pulmonary arteries appear normal. The inferior vena cava is | | | opacified, normally emptying into the RIGHT atrium. The thyroid | | | gland is normal in size and density, without nodule. There is mild | | | calcification of the thoracic aorta with normal caliber. The cardiac | | | volume and pericardial thickness are normal. There is moderate | | | bilateral gynecomastia. The lung velasco demonstrate focal areas of | | | atelectasis and/or consolidation in the posterior inferior RIGHT | | | costophrenic sulcus with linear atelectasis in the LEFT lung base. | | | No pulmonary nodules or pneumonia identified. Bronchial thickening | | | is moderate in the central lungs, suggesting interstitial pulmonary | | | edema or chronic bronchitis. The upper abdomen is partially | | | visualized and appears normal. This is not a complete examination of | | | the abdomen. Mild osteophytes are visualized in the thoracic spine. | | | Bone density is normal. | | + + + + + | Procedure Note | + + | Néstor, Rad Conversion - 02/04/2019 10:13 PM PDT CAROL Fuller JIMCT CHEST W CONTRAST09/10/2016 | | 12:20 PM History: 51 years. Male. Failing RIGHT upper arm arteriovenous dialysis | | fistula. Angioplasty of the RIGHT subclavian vein for stenosis, and placement of RIGHT | | femoral tunneled dialysis catheter on 09/10/15. 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 Technique: During bolus intravenous administration of 100 cc of nonionic | | iodine contrast and a single breath hold, 1.25 millimeter thick slices were performed | | throughout the chest in the axial plane and reconstructed in 5-mm thick slices for | | display. Additional coronal plane imaging was reconstructed. Radiation dose reduction | | performed with automated exposure control. Comparison examinations: None. Findings: | | Diffuse soft tissue subcutaneous edema is noted throughout the RIGHT lateral and | | anterior chest wall. Large lymph nodes are visualized in the RIGHT axillary region, | | with normal morphology, probably reactive. Collateral subcutaneous venous circulation | | is visualized in the anterior upper LEFT RIGHT chest wall. The RIGHT upper arm is above | | the head and only partially visualized. The RIGHT axillary vein shows normal contrast | | enhancement. The RIGHT subclavian vein is completely obstructed, just before it passes | | over the anterior RIGHT 1st rib. The LEFT axillary vein was used for contrast injection | | and appears to be patent. The LEFT subclavian vein is constricted as it passes over the | | anterior LEFT 1st rib, best visualized on image 30 series 4. The distal LEFT | | subclavian vein is normally opacified. The superior vena cava is patent but is | | constricted or narrowed just before entering the RIGHT atrium, image 107 series 4. This | | appears to be an fibrotic constriction rather than intraluminal thrombus. There is | | normal opacification of the azygos vein. The central pulmonary arteries appear normal. | | The inferior vena cava is opacified, normally emptying into the RIGHT atrium. The | | thyroid gland is normal in size and density, without nodule. There is mild | | calcification of the thoracic aorta with normal caliber. The cardiac volume and | | pericardial thickness are normal. There is moderate bilateral gynecomastia. The lung | | velasco demonstrate focal areas of atelectasis and/or consolidation in the posterior | | inferior RIGHT costophrenic sulcus with linear atelectasis in the LEFT lung base. No | | pulmonary nodules or pneumonia identified. Bronchial thickening is moderate in the | | central lungs, suggesting interstitial pulmonary edema or chronic bronchitis. The upper | | abdomen is partially visualized and appears normal. This is not a complete examination | | of the abdomen. Mild osteophytes are visualized in the thoracic spine. Bone density is | | normal. IMPRESSION: 1. 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 Severe narrowing of the LEFT subclavian | | vein as it passes over the LEFT 1st rib.3. Apparent fibrotic stenosis of the distal | | aspect of the superior vena cava as it enters the RIGHT atrium.4. Moderate RIGHT | | axillary lymphadenopathy, probably reactive.5. Diffuse subcutaneous edema throughout | | the RIGHT anterior chest wall and the lateral chest wall.6. 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 Mild atelectasis/focal | | pneumonia in the RIGHT lung base.8. Mild interstitial pulmonary edema versus chronic | | bronchitis. | + + CT Chest w Contrast (09/09/2016 11:30 AM PDT) + + | Specimen | + + | | + + + + + | Impressions | Performed At | + + + | 1. Suboptimal exam due to IV infiltration at the injection site. | | | Please see above discussion under technique. 2. Superior vena cava | | | is not expanded. Consider repeating repeating the exam when a new IV | | | has been placed. Alternatively, right upper extremity ultrasound could | | | be performed to evaluate for any abnormal waveforms, which may | | | indicate central occlusion. 3. Right axillary and mediastinal | | | adenopathy. Differential considerations include reactive versus, and | | | preoperative versus metastatic disease. 4. Nonspecific groundglass | | | opacities within the left upper lobe, may represent acute inflammation | | | or infection. | | | 2:21 PM | | + + + + + + | Narrative | Performed At | + + + | CAROL POTTER [address] CHEST W CONTRAST | | | 09/09/2016 11:30 AM HISTORY: Superior vena cava occlusion | | | COMPARISON: None. TECHNIQUE: CT scan of the chest with IV | | | contrast. 5 mm thick helically acquired axial images were performed. | | | Examination reviewed in soft tissue and lung algorithm. Dose | | | reduction techniques were used including automated exposure control, | | | iterative reconstruction technique, and/or automated adjustable mAs | | | based on patient size. IV contrast: 80 mL Isovue-300. Intravenous | | | contrast was demonstrated infiltrating at the injection site. I was | | | notified by the radioisotope technologist and was asked to evaluate the patient. | | | There was confirmed this in the area of contrast injection within the | | | left lateral arm as well as tenderness, which the patient said was | | | new. The patient's capillary refill was within normal limits on the | | | left. The patient's nurse on the floor were notified of the contrast | | | infiltration and to monitor for any evidence of compartment syndrome. | | | Dr. Meyer, the ordering physician, was also notified. FINDINGS: | | | The heart is within normal limits for size. No significant pericardial | | | effusion status. Coronary artery calcifications are noted. The | | | thoracic aorta is mildly atherosclerotic, without aneurysm. Evaluation | | | of the superior vena cava is suboptimal due to the contrast | | | infiltration at the injection site. However, the SVC does not appear | | | to be expanded. Multiple enlarged lymph nodes are present within | | | the right axilla measuring up to 3.4 x 1.5 cm (series 3, image 12). | | | There also multiple prominent mediastinal lymph nodes including a 1.4 | | | x 2.0 cm right paratracheal lymph node (series 3, image 16). No | | | bulky hilar lymph nodes are demonstrated. Note is made of | | | bilateral gynecomastia. Diffuse subcutaneous edema is noted, most | | | prominent within the right axilla. Superficial varicosities are noted | | | within the right chest (series 3, image 4), which may represent | | | collateral flow. Groundglass opacities are noted within the left | | | upper lobe and lingula (series 3, image 30 and 35). Mild scarring or | | | subsegmental atelectasis noted in the left lower lobe. No significant | | | pleural effusion. No acute osseous abnormalities. Limited | | | images of the upper abdomen demonstrate focal area of low attenuation | | | adjacent to the falciform ligament (series 3, image 52), which is | | | nonspecific, but located in area typical of fatty change. | | + + + + + | Procedure Note | + + | Néstor, Rad Conversion - 02/04/2019 10:13 PM PDT CAROL Fuller JIM1965 51 years MaleCT | | CHEST W CONTRAST09/09/2016 11:30 AM HISTORY: Superior vena cava occlusion COMPARISON: | | None. TECHNIQUE: CT scan of the chest with IV contrast. 5 mm thick helically acquired | | axial images were performed. Examination reviewed in soft tissue and lung algorithm. | | Dose reduction techniques were used including automated exposure control, iterative | | reconstruction technique, and/or automated adjustable mAs based on patient size.IV | | contrast: 80 mL Isovue-300. Intravenous contrast was demonstrated infiltrating at the | | injection site. I was notified by the radioisotope technologist and was asked to evaluate the | | patient. There was confirmed this in the area of contrast injection within the left | | lateral arm as well as tenderness, which the patient said was new. The patient's | | capillary refill was within normal limits on the left. The patient's nurse on the floor | | were notified of the contrast infiltration and to monitor for any evidence of | | compartment syndrome. Dr. Meyer, the ordering physician, was also notified. FINDINGS: The | | heart is within normal limits for size. No significant pericardial effusion status. | | Coronary artery calcifications are noted. The thoracic aorta is mildly atherosclerotic, | | without aneurysm. Evaluation of the superior vena cava is suboptimal due to the contrast | | infiltration at the injection site. However, the SVC does not appear to be expanded. | | Multiple enlarged lymph nodes are present within the right axilla measuring up to 3.4 x | | 1.5 cm (series 3, image 12). There also multiple prominent mediastinal lymph nodes | | including a 1.4 x 2.0 cm right paratracheal lymph node (series 3, image 16). No bulky | | hilar lymph nodes are demonstrated. Note is made of bilateral gynecomastia. Diffuse | | subcutaneous edema is noted, most prominent within the right axilla. Superficial | | varicosities are noted within the right chest (series 3, image 4), which may represent | | collateral flow. Groundglass opacities are noted within the left upper lobe and lingula | | (series 3, image 30 and 35). Mild scarring or subsegmental atelectasis noted in the left | | lower lobe. No significant pleural effusion. No acute osseous abnormalities. Limited | | images of the upper abdomen demonstrate focal area of low attenuation adjacent to the | | falciform ligament (series 3, image 52), which is nonspecific, but located in area | | typical of fatty change. IMPRESSION: 1. Suboptimal exam due to IV infiltration at the | | injection site. Please see above discussion under technique.2. Superior vena cava is | | not expanded. Consider repeating repeating the exam when a new IV has been placed. | | Alternatively, right upper extremity ultrasound could be performed to evaluate for any | | abnormal waveforms, which may indicate central occlusion.3. Right axillary and | | mediastinal adenopathy. Differential considerations include reactive versus, and | | preoperative versus metastatic disease.4. Nonspecific groundglass opacities within the | | left upper lobe, may represent acute inflammation or infection. | |1. Suboptimal exam due to IV infiltration at the injection site. Please see above discussi on under technique. | |2. Superior vena cava is not expanded. Consider repeating repeating the exam when a new IV has been placed. Alternatively, right upper extremity ultrasound could be performed to eval uate for any abnormal waveforms, | |which may indicate central occlusion. | |3. Right axillary and mediastinal adenopathy. Differential considerations include reactive versus, and preoperative versus metastatic disease. | |4. Nonspecific groundglass opacities within the left upper lobe, may represent acute infla mmation or infection. | | | | | + + US Guided Vascular Access (09/09/2016 9:25 AM PDT) + + | Specimen | + + | | + + + + + | Narrative | Performed At | + + + | This Point of Care (POC) ultrasound image has been reviewed and | | | interpreted by the physician identified as the performing physician in | | | the associated interpretation and report. | | + + + + + | Procedure Note | + + | Khalif Palm - 02/04/2019 10:13 PM PDT This Point of Care (POC) ultrasound | | image has been reviewed andinterpreted by the physician identified as the performing | | physician in theassociated interpretation and report. | | | + + IR Removal Tunneled CV Cath wo Port (09/09/2016 9:25 AM PDT) + + | Specimen | + + | | + + + + + | Narrative | Performed At | + + + | PREOPERATIVE DIAGNOSIS End-stage renal disease, right arm swelling | | | and poorly functioning right brachiobasilic fistula POSTOPERATIVE | | | DIAGNOSIS End-stage renal disease, right arm swelling and poorly | | | functioning right brachiobasilic fistula PROCEDURE 1. Moderate | | | conscious sedation 2. Right arm fistulogram 3. Angioplasty of the | | | right subclavian vein using 3 x 40 mm and then 8 x 40 mm angioplasty | | | balloons 4. Left arm venogram 5. Ultrasound-guided access of right | | | femoral vein 6. Placement of 35 cm tunneled dialysis catheter via | | | right femoral vein under fluoroscopic guidance SURGEON Oskar Meyer, | | | [employer] None ANESTHESIA Moderate sedation, local | | | anesthesia. Informed consent was obtained from the patient. | | | Continuous cardiac monitoring was performed throughout the procedure. | | | Conscious sedation was provided by the nursing staff during the | | | procedure under my supervision. Sedation time: 40 minutes | | | Medications: 0.5 mg Versed IV, 25 mcg Fentanyl IV ESTIMATED BLOOD | | | LOSS Minimal. CONTRAST USED 55 mL of Isovue-250 INDICATIONS | | | Mr. Potter is a pleasant 51-year-old male who has a right upper | | | extremity brachiobasilic fistula which has been having issues with | | | difficult access and arm swelling. FINDINGS Right brachiobasilic | | | fistula was widely patent without significant stenosis. Right | | | subclavian vein was occluded just proximal to junction with cephalic | | | vein. Attempted crossing and angioplasty but this was unsuccessful. | | | Left arm venogram done which shows near occlusion of left subclavian | | | vein near origin with poor filling of the left innominate vein. | | | Unable to determine if patient has SVC occlusion due to poor filling | | | in the left upper extremity veins. Therefore, right groin tunneled | | | catheter placed with tip in IVC. Will need CT venogram of chest to | | | better evaluate central veins. DESCRIPTION OF PROCEDURE The | | | patient was properly identified and brought to the catheterization | | | lab. The patient was placed supine on the catheterization lab table | | | and the patient was given moderate sedation. The patient's right arm | | | was then prepped and draped in the usual sterile fashion. Local | | | anesthetic was then given near the antecubital fossa and the distal | | | right arm basilic vein was accessed using a micropuncture needle. A | | | micropuncture sheath was then inserted over a wire and a fistulogram | | | was then performed. On fistulogram there was a occlusion of the right | | | subclavian vein. Therefore a 6-[place] sheath was then inserted over | | | a wire. A Glidewire was then used to attempt crossing of right | | | subclavian occlusion and a 3 x 40 mm and then 8 x 40 mm angioplasty | | | balloon was used to attempt recanalization of occluded right | | | subclavian vein. However, this proved to be unsuccessful. Therefore a | | | pursestring of 3-0 Prolene was placed around the sheath and the | | | sheath was removed and hemostasis was ensured. A left upper extremity | | | venogram was then performed through the left arm IV with the | | | findings as described above. The patient's right groin was then | | | prepped and draped in the usual sterile fashion. Local anesthetic was | | | then given to the right groin and the right femoral vein was | | | accessed using a micropuncture needle. A micropuncture wire was then | | | inserted. A micropuncture sheath was then inserted over the wire. | | | Next, local anesthetic was then given to the right thigh and a 35 | | | cm catheter was tunneled from the right thigh to the right groin. | | | Once the catheter was in place, a stiff wire was placed through the | | | micropuncture sheath and serial dilators were then used to dilate the | | | right common femoral vein tract. Once the right femoral vein was | | | dilated with the dilators, an introducer sheath was inserted over a | | | wire. The introducer was then removed and the catheter was then | | | inserted into the right common femoral vein with the tip of the | | | catheter being placed into the IVC. Once the catheter was placed, the | | | sheath was then removed and hemostasis was then assured. The | | | catheter was then aspirated first and flushed with heparinized saline. | | | The catheter was then instilled with concentrated heparin as | | | indicated. The groin incision was then closed with 3-0 Vicryl in a | | | subcuticular fashion and Dermabond was then placed on the skin. The | | | catheter was then secured to the skin using 3-0 Prolene sutures. Once | | | the catheter was secured, sterile dressings were then applied. At | | | the end of the case, sponge, needle and instrument counts were | | | correct x2. There were no apparent complications. IMPRESSION 1. 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 2. Probable left | | | proximal subclavian occlusion with poor filling of left innominate | | | vein. 3. Proper placement of right femoral vein tunneled dialysis | | | catheter with tip in IVC. 4. Will need CT chest venogram to better | | | evaluate for central veins. | | + + + + + | Procedure Note | + + | Néstor, Khalif Conversion - 02/04/2019 10:13 PM PDT PREOPERATIVE DIAGNOSISEnd-stage renal | | disease, right arm swelling and poorly functioning right brachiobasilic fistula | | POSTOPERATIVE DIAGNOSISEnd-stage renal disease, right arm swelling and poorly | | functioning right brachiobasilic fistula PROCEDURE1. Moderate conscious sedation2. Right | | arm fistulogram3. Angioplasty of the right subclavian vein using 3 x 40 mm and then 8 x | | 40 mm angioplasty balloons4. Left arm venogram5. Ultrasound-guided access of right | | femoral vein6. Placement of 35 cm tunneled dialysis catheter via right femoral vein | | under fluoroscopic guidance Yumiko Meyer MD ASSISTANTNone ANESTHESIAModerate | | sedation, local anesthesia. Informed consent was obtained from the patient. Continuous | | cardiac monitoring was performed throughout the procedure.Conscious sedation was | | provided by the nursing staff during the procedure under my supervision.Sedation time: | | 40 minutesMedications: 0.5 mg Versed IV, 25 mcg Fentanyl IV ESTIMATED BLOOD LOSSMinimal. | | CONTRAST USED55 mL of Isovue-250 INDICATIONSMr. Tariq is a pleasant 51-year-old male who | | has a right upper extremitybrachiobasilic fistula which has been having issues with | | difficult access and arm swelling. FINDINGSRight brachiobasilic fistula was widely | | patent without significant stenosis. Right subclavian vein was occluded just proximal to | | junction with cephalic vein. Attempted crossing and angioplasty but this was | | unsuccessful. Left arm venogram done which shows near occlusion of left subclavian vein | | near origin with poor filling of the left innominate vein. Unable to determine if | | patient has SVC occlusion due to poor filling in the left upper extremity veins. | | Therefore, right groin tunneled catheter placed with tip in IVC. Will need CT venogram | | of chest to better evaluate central veins. DESCRIPTION OF PROCEDUREThe patient was | | properly identified and brought to the catheterizationlab. The patient was placed supine | | on the catheterization lab table andthe patient was given moderate sedation. The | | patient's right arm was thenprepped and draped in the usual sterile fashion. Local | | anesthetic was thengiven near the antecubital fossa and the distal right arm basilic | | vein wasaccessed using a micropuncture needle. A micropuncture sheath was theninserted | | over a wire and a fistulogram was then performed. On fistulogramthere was a occlusion of | | the right subclavian vein. Therefore a 6-Frenchsheath was then inserted over a wire. A | | Glidewire was then used toattempt crossing of right subclavian occlusion and a 3 x 40 mm | | and then8 x 40 mm angioplasty balloon was used to attempt recanalization of | | occludedright subclavian vein. However, this proved to be unsuccessful. Therefore | | apursestring of 3-0 Prolene was placed around the sheath and the sheath wasremoved and | | hemostasis was ensured. A left upper extremity venogram wasthen performed through the | | left arm IV with the findings as described above. The patient's right groin was then | | prepped and draped in theusual sterile fashion. Local anesthetic was then given to the | | right groin and theright femoral vein was accessed using a micropuncture needle. | | Amicropuncture wire was then inserted. A micropuncture sheath was theninserted over the | | wire. Next, local anesthetic was then given to the right thighand a 35 cm catheter was | | tunneled from the right thigh tothe right groin. Once the catheter was in place, a stiff | | wire was placed throughthe micropuncture sheath and serial dilators were then used to | | dilate the rightcommon femoral vein tract. Once the right femoral vein was dilated with | | the dilators, anintroducer sheath was inserted over a wire. The introducer was then | | removedand the catheter was then inserted into the right common femoral vein withthe tip | | of the catheter being placed into the IVC. Once thecatheter was placed, the sheath was | | then removed and hemostasis was thenassured. The catheter was then aspirated first and | | flushed with heparinized saline.The catheter was then instilled with concentrated | | heparin as indicated.The groin incision was then closed with 3-0 Vicryl in a | | subcuticularfashion and Dermabond was then placed on the skin. The catheter was | | thensecured to the skin using 3-0 Prolene sutures. Once the catheter wassecured, sterile | | dressings were then applied. At the end of the case,sponge, needle and instrument | | counts were correct x2. There were noapparent complications. IMPRESSION1. 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 Probable left proximal subclavian occlusion with poor | | filling of left innominate vein.3. Proper placement of right femoral vein tunneled | | dialysis catheter with tip in IVC.4. Will need CT chest venogram to better evaluate for | | central veins. | |pursestring of 3-0 Prolene was placed around the sheath and the sheath was | |removed and hemostasis was ensured. A left upper extremity venogram was | |then performed through the left arm IV with the findings as described above. | | | |The patient's right groin was then prepped and draped in the | |usual sterile fashion. Local anesthetic was then given to the right groin and the | |right femoral vein was accessed using a micropuncture needle. A | |micropuncture wire was then inserted. A micropuncture sheath was then | |inserted over the wire. Next, local anesthetic was then given to the right thigh | |and a 35 cm catheter was tunneled from the right thigh to | |the right groin. Once the catheter was in place, a stiff wire was placed through | |the micropuncture sheath and serial dilators were then used to dilate the right | |common femoral vein tract. Once the right femoral vein was dilated with the dilators, an | |introducer sheath was inserted over a wire. The introducer was then removed | |and the catheter was then inserted into the right common femoral vein with | |the tip of the catheter being placed into the IVC. Once the | |catheter was placed, the sheath was then removed and hemostasis was then | |assured. The catheter was then aspirated first and flushed with heparinized saline. | |The catheter was then instilled with concentrated heparin as indicated. | |The groin incision was then closed with 3-0 Vicryl in a subcuticular | |fashion and Dermabond was then placed on the skin. The catheter was then | |secured to the skin using 3-0 Prolene sutures. Once the catheter was | |secured, sterile dressings were then applied. At the end of the case, | |sponge, needle and instrument counts were correct x2. There were no | |apparent complications. | | | |IMPRESSION | |1. 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 | |2. Probable left proximal subclavian occlusion with poor filling of left innominate vein. | |3. Proper placement of right femoral vein tunneled dialysis catheter with tip in IVC. | |4. Will need CT chest venogram to better evaluate for central veins. | | | | | + + IR Inj Dialysis Circuit (09/09/2016 9:25 AM PDT) + + | Specimen | + + | | + + + + + | Narrative | Performed At | + + + | PREOPERATIVE DIAGNOSIS End-stage renal disease, right arm swelling | | | and poorly functioning right brachiobasilic fistula POSTOPERATIVE | | | DIAGNOSIS End-stage renal disease, right arm swelling and poorly | | | functioning right brachiobasilic fistula PROCEDURE 1. Moderate | | | conscious sedation 2. Right arm fistulogram 3. Angioplasty of the | | | right subclavian vein using 3 x 40 mm and then 8 x 40 mm angioplasty | | | balloons 4. Left arm venogram 5. Ultrasound-guided access of right | | | femoral vein 6. Placement of 35 cm tunneled dialysis catheter via | | | right femoral vein under fluoroscopic guidance SURGEON Oskar Meyer, | | | MD [employer] None ANESTHESIA Moderate sedation, local | | | anesthesia. Informed consent was obtained from the patient. | | | Continuous cardiac monitoring was performed throughout the procedure. | | | Conscious sedation was provided by the nursing staff during the | | | procedure under my supervision. Sedation time: 40 minutes | | | Medications: 0.5 mg Versed IV, 25 mcg Fentanyl IV ESTIMATED BLOOD | | | LOSS Minimal. CONTRAST USED 55 mL of Isovue-250 INDICATIONS | | | Mr. Potter is a pleasant 51-year-old male who has a right upper | | | extremity brachiobasilic fistula which has been having issues with | | | difficult access and arm swelling. FINDINGS Right brachiobasilic | | | fistula was widely patent without significant stenosis. Right | | | subclavian vein was occluded just proximal to junction with cephalic | | | vein. Attempted crossing and angioplasty but this was unsuccessful. | | | Left arm venogram done which shows near occlusion of left subclavian | | | vein near origin with poor filling of the left innominate vein. | | | Unable to determine if patient has SVC occlusion due to poor filling | | | in the left upper extremity veins. Therefore, right groin tunneled | | | catheter placed with tip in IVC. Will need CT venogram of chest to | | | better evaluate central veins. DESCRIPTION OF PROCEDURE The | | | patient was properly identified and brought to the catheterization | | | lab. The patient was placed supine on the catheterization lab table | | | and the patient was given moderate sedation. The patient's right arm | | | was then prepped and draped in the usual sterile fashion. Local | | | anesthetic was then given near the antecubital fossa and the distal | | | right arm basilic vein was accessed using a micropuncture needle. A | | | micropuncture sheath was then inserted over a wire and a fistulogram | | | was then performed. On fistulogram there was a occlusion of the right | | | subclavian vein. Therefore a 6-[place] sheath was then inserted over | | | a wire. A Glidewire was then used to attempt crossing of right | | | subclavian occlusion and a 3 x 40 mm and then 8 x 40 mm angioplasty | | | balloon was used to attempt recanalization of occluded right | | | subclavian vein. However, this proved to be unsuccessful. Therefore a | | | pursestring of 3-0 Prolene was placed around the sheath and the | | | sheath was removed and hemostasis was ensured. A left upper extremity | | | venogram was then performed through the left arm IV with the | | | findings as described above. The patient's right groin was then | | | prepped and draped in the usual sterile fashion. Local anesthetic was | | | then given to the right groin and the right femoral vein was | | | accessed using a micropuncture needle. A micropuncture wire was then | | | inserted. A micropuncture sheath was then inserted over the wire. | | | Next, local anesthetic was then given to the right thigh and a 35 | | | cm catheter was tunneled from the right thigh to the right groin. | | | Once the catheter was in place, a stiff wire was placed through the | | | micropuncture sheath and serial dilators were then used to dilate the | | | right common femoral vein tract. Once the right femoral vein was | | | dilated with the dilators, an introducer sheath was inserted over a | | | wire. The introducer was then removed and the catheter was then | | | inserted into the right common femoral vein with the tip of the | | | catheter being placed into the IVC. Once the catheter was placed, the | | | sheath was then removed and hemostasis was then assured. The | | | catheter was then aspirated first and flushed with heparinized saline. | | | The catheter was then instilled with concentrated heparin as | | | indicated. The groin incision was then closed with 3-0 Vicryl in a | | | subcuticular fashion and Dermabond was then placed on the skin. The | | | catheter was then secured to the skin using 3-0 Prolene sutures. Once | | | the catheter was secured, sterile dressings were then applied. At | | | the end of the case, sponge, needle and instrument counts were | | | correct x2. There were no apparent complications. IMPRESSION 1. 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 2. Probable left | | | proximal subclavian occlusion with poor filling of left innominate | | | vein. 3. Proper placement of right femoral vein tunneled dialysis | | | catheter with tip in IVC. 4. Will need CT chest venogram to better | | | evaluate for central veins. | | + + + + + | Procedure Note | + + | Néstor, Rad Conversion - 02/04/2019 10:13 PM PDT PREOPERATIVE DIAGNOSISEnd-stage renal | | disease, right arm swelling and poorly functioning right brachiobasilic fistula | | POSTOPERATIVE DIAGNOSISEnd-stage renal disease, right arm swelling and poorly | | functioning right brachiobasilic fistula PROCEDURE1. Moderate conscious sedation2. Right | | arm fistulogram3. Angioplasty of the right subclavian vein using 3 x 40 mm and then 8 x | | 40 mm angioplasty balloons4. Left arm venogram5. Ultrasound-guided access of right | | femoral vein6. Placement of 35 cm tunneled dialysis catheter via right femoral vein | | under fluoroscopic guidance Yumiko Meyer MD ASSISTANTNone ANESTHESIAModerate | | sedation, local anesthesia. Informed consent was obtained from the patient. Continuous | | cardiac monitoring was performed throughout the procedure.Conscious sedation was | | provided by the nursing staff during the procedure under my supervision.Sedation time: | | 40 minutesMedications: 0.5 mg Versed IV, 25 mcg Fentanyl IV ESTIMATED BLOOD LOSSMinimal. | | CONTRAST USED55 mL of Isovue-250 INDICATIONSMr. Tariq is a pleasant 51-year-old male who | | has a right upper extremitybrachiobasilic fistula which has been having issues with | | difficult access and arm swelling. FINDINGSRight brachiobasilic fistula was widely | | patent without significant stenosis. Right subclavian vein was occluded just proximal to | | junction with cephalic vein. Attempted crossing and angioplasty but this was | | unsuccessful. Left arm venogram done which shows near occlusion of left subclavian vein | | near origin with poor filling of the left innominate vein. Unable to determine if | | patient has SVC occlusion due to poor filling in the left upper extremity veins. | | Therefore, right groin tunneled catheter placed with tip in IVC. Will need CT venogram | | of chest to better evaluate central veins. DESCRIPTION OF PROCEDUREThe patient was | | properly identified and brought to the catheterizationlab. The patient was placed supine | | on the catheterization lab table andthe patient was given moderate sedation. The | | patient's right arm was thenprepped and draped in the usual sterile fashion. Local | | anesthetic was thengiven near the antecubital fossa and the distal right arm basilic | | vein wasaccessed using a micropuncture needle. A micropuncture sheath was theninserted | | over a wire and a fistulogram was then performed. On fistulogramthere was a occlusion of | | the right subclavian vein. Therefore a 6-Frenchsheath was then inserted over a wire. A | | Glidewire was then used toattempt crossing of right subclavian occlusion and a 3 x 40 mm | | and then8 x 40 mm angioplasty balloon was used to attempt recanalization of | | occludedright subclavian vein. However, this proved to be unsuccessful. Therefore | | apursestring of 3-0 Prolene was placed around the sheath and the sheath wasremoved and | | hemostasis was ensured. A left upper extremity venogram wasthen performed through the | | left arm IV with the findings as described above. The patient's right groin was then | | prepped and draped in theusual sterile fashion. Local anesthetic was then given to the | | right groin and theright femoral vein was accessed using a micropuncture needle. | | Amicropuncture wire was then inserted. A micropuncture sheath was theninserted over the | | wire. Next, local anesthetic was then given to the right thighand a 35 cm catheter was | | tunneled from the right thigh tothe right groin. Once the catheter was in place, a stiff | | wire was placed throughthe micropuncture sheath and serial dilators were then used to | | dilate the rightcommon femoral vein tract. Once the right femoral vein was dilated with | | the dilators, anintroducer sheath was inserted over a wire. The introducer was then | | removedand the catheter was then inserted into the right common femoral vein withthe tip | | of the catheter being placed into the IVC. Once thecatheter was placed, the sheath was | | then removed and hemostasis was thenassured. The catheter was then aspirated first and | | flushed with heparinized saline.The catheter was then instilled with concentrated | | heparin as indicated.The groin incision was then closed with 3-0 Vicryl in a | | subcuticularfashion and Dermabond was then placed on the skin. The catheter was | | thensecured to the skin using 3-0 Prolene sutures. Once the catheter wassecured, sterile | | dressings were then applied. At the end of the case,sponge, needle and instrument | | counts were correct x2. There were noapparent complications. IMPRESSION1. 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 Probable left proximal subclavian occlusion with poor | | filling of left innominate vein.3. Proper placement of right femoral vein tunneled | | dialysis catheter with tip in IVC.4. Will need CT chest venogram to better evaluate for | | central veins. | |pursestring of 3-0 Prolene was placed around the sheath and the sheath was | |removed and hemostasis was ensured. A left upper extremity venogram was | |then performed through the left arm IV with the findings as described above. | | | |The patient's right groin was then prepped and draped in the | |usual sterile fashion. Local anesthetic was then given to the right groin and the | |right femoral vein was accessed using a micropuncture needle. A | |micropuncture wire was then inserted. A micropuncture sheath was then | |inserted over the wire. Next, local anesthetic was then given to the right thigh | |and a 35 cm catheter was tunneled from the right thigh to | |the right groin. Once the catheter was in place, a stiff wire was placed through | |the micropuncture sheath and serial dilators were then used to dilate the right | |common femoral vein tract. Once the right femoral vein was dilated with the dilators, an | |introducer sheath was inserted over a wire. The introducer was then removed | |and the catheter was then inserted into the right common femoral vein with | |the tip of the catheter being placed into the IVC. Once the | |catheter was placed, the sheath was then removed and hemostasis was then | |assured. The catheter was then aspirated first and flushed with heparinized saline. | |The catheter was then instilled with concentrated heparin as indicated. | |The groin incision was then closed with 3-0 Vicryl in a subcuticular | |fashion and Dermabond was then placed on the skin. The catheter was then | |secured to the skin using 3-0 Prolene sutures. Once the catheter was | |secured, sterile dressings were then applied. At the end of the case, | |sponge, needle and instrument counts were correct x2. There were no | |apparent complications. | | | |IMPRESSION | |1. 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 | |2. Probable left proximal subclavian occlusion with poor filling of left innominate vein. | |3. Proper placement of right femoral vein tunneled dialysis catheter with tip in IVC. | |4. Will need CT chest venogram to better evaluate for central veins. | | | | | + + IR Placement Tunneled CV Cath (09/09/2016 9:25 AM PDT) + + | Specimen | + + | | + + + + + | Narrative | Performed At | + + + | PREOPERATIVE DIAGNOSIS End-stage renal disease, right arm swelling | | | and poorly functioning right brachiobasilic fistula POSTOPERATIVE | | | DIAGNOSIS End-stage renal disease, right arm swelling and poorly | | | functioning right brachiobasilic fistula PROCEDURE 1. Moderate | | | conscious sedation 2. Right arm fistulogram 3. Angioplasty of the | | | right subclavian vein using 3 x 40 mm and then 8 x 40 mm angioplasty | | | balloons 4. Left arm venogram 5. Ultrasound-guided access of right | | | femoral vein 6. Placement of 35 cm tunneled dialysis catheter via | | | right femoral vein under fluoroscopic guidance SURGEON Oskar Meyer, | | | MD [employer] None ANESTHESIA Moderate sedation, local | | | anesthesia. Informed consent was obtained from the patient. | | | Continuous cardiac monitoring was performed throughout the procedure. | | | Conscious sedation was provided by the nursing staff during the | | | procedure under my supervision. Sedation time: 40 minutes | | | Medications: 0.5 mg Versed IV, 25 mcg Fentanyl IV ESTIMATED BLOOD | | | LOSS Minimal. CONTRAST USED 55 mL of Isovue-250 INDICATIONS | | | Mr. Potter is a pleasant 51-year-old male who has a right upper | | | extremity brachiobasilic fistula which has been having issues with | | | difficult access and arm swelling. FINDINGS Right brachiobasilic | | | fistula was widely patent without significant stenosis. Right | | | subclavian vein was occluded just proximal to junction with cephalic | | | vein. Attempted crossing and angioplasty but this was unsuccessful. | | | Left arm venogram done which shows near occlusion of left subclavian | | | vein near origin with poor filling of the left innominate vein. | | | Unable to determine if patient has SVC occlusion due to poor filling | | | in the left upper extremity veins. Therefore, right groin tunneled | | | catheter placed with tip in IVC. Will need CT venogram of chest to | | | better evaluate central veins. DESCRIPTION OF PROCEDURE The | | | patient was properly identified and brought to the catheterization | | | lab. The patient was placed supine on the catheterization lab table | | | and the patient was given moderate sedation. The patient's right arm | | | was then prepped and draped in the usual sterile fashion. Local | | | anesthetic was then given near the antecubital fossa and the distal | | | right arm basilic vein was accessed using a micropuncture needle. A | | | micropuncture sheath was then inserted over a wire and a fistulogram | | | was then performed. On fistulogram there was a occlusion of the right | | | subclavian vein. Therefore a 6-[place] sheath was then inserted over | | | a wire. A Glidewire was then used to attempt crossing of right | | | subclavian occlusion and a 3 x 40 mm and then 8 x 40 mm angioplasty | | | balloon was used to attempt recanalization of occluded right | | | subclavian vein. However, this proved to be unsuccessful. Therefore a | | | pursestring of 3-0 Prolene was placed around the sheath and the | | | sheath was removed and hemostasis was ensured. A left upper extremity | | | venogram was then performed through the left arm IV with the | | | findings as described above. The patient's right groin was then | | | prepped and draped in the usual sterile fashion. Local anesthetic was | | | then given to the right groin and the right femoral vein was | | | accessed using a micropuncture needle. A micropuncture wire was then | | | inserted. A micropuncture sheath was then inserted over the wire. | | | Next, local anesthetic was then given to the right thigh and a 35 | | | cm catheter was tunneled from the right thigh to the right groin. | | | Once the catheter was in place, a stiff wire was placed through the | | | micropuncture sheath and serial dilators were then used to dilate the | | | right common femoral vein tract. Once the right femoral vein was | | | dilated with the dilators, an introducer sheath was inserted over a | | | wire. The introducer was then removed and the catheter was then | | | inserted into the right common femoral vein with the tip of the | | | catheter being placed into the IVC. Once the catheter was placed, the | | | sheath was then removed and hemostasis was then assured. The | | | catheter was then aspirated first and flushed with heparinized saline. | | | The catheter was then instilled with concentrated heparin as | | | indicated. The groin incision was then closed with 3-0 Vicryl in a | | | subcuticular fashion and Dermabond was then placed on the skin. The | | | catheter was then secured to the skin using 3-0 Prolene sutures. Once | | | the catheter was secured, sterile dressings were then applied. At | | | the end of the case, sponge, needle and instrument counts were | | | correct x2. There were no apparent complications. IMPRESSION 1. 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 2. Probable left | | | proximal subclavian occlusion with poor filling of left innominate | | | vein. 3. Proper placement of right femoral vein tunneled dialysis | | | catheter with tip in IVC. 4. Will need CT chest venogram to better | | | evaluate for central veins. | | + + + + + | Procedure Note | + + | Néstor, Rad Conversion - 02/04/2019 10:13 PM PDT PREOPERATIVE DIAGNOSISEnd-stage renal | | disease, right arm swelling and poorly functioning right brachiobasilic fistula | | POSTOPERATIVE DIAGNOSISEnd-stage renal disease, right arm swelling and poorly | | functioning right brachiobasilic fistula PROCEDURE1. Moderate conscious sedation2. Right | | arm fistulogram3. Angioplasty of the right subclavian vein using 3 x 40 mm and then 8 x | | 40 mm angioplasty balloons4. Left arm venogram5. Ultrasound-guided access of right | | femoral vein6. Placement of 35 cm tunneled dialysis catheter via right femoral vein | | under fluoroscopic guidance Yumiko Meyer MD ASSISTANTNone ANESTHESIAModerate | | sedation, local anesthesia. Informed consent was obtained from the patient. Continuous | | cardiac monitoring was performed throughout the procedure.Conscious sedation was | | provided by the nursing staff during the procedure under my supervision.Sedation time: | | 40 minutesMedications: 0.5 mg Versed IV, 25 mcg Fentanyl IV ESTIMATED BLOOD LOSSMinimal. | | CONTRAST USED55 mL of Isovue-250 INDICATIONSMr. Tariq is a pleasant 51-year-old male who | | has a right upper extremitybrachiobasilic fistula which has been having issues with | | difficult access and arm swelling. FINDINGSRight brachiobasilic fistula was widely | | patent without significant stenosis. Right subclavian vein was occluded just proximal to | | junction with cephalic vein. Attempted crossing and angioplasty but this was | | unsuccessful. Left arm venogram done which shows near occlusion of left subclavian vein | | near origin with poor filling of the left innominate vein. Unable to determine if | | patient has SVC occlusion due to poor filling in the left upper extremity veins. | | Therefore, right groin tunneled catheter placed with tip in IVC. Will need CT venogram | | of chest to better evaluate central veins. DESCRIPTION OF PROCEDUREThe patient was | | properly identified and brought to the catheterizationlab. The patient was placed supine | | on the catheterization lab table andthe patient was given moderate sedation. The | | patient's right arm was thenprepped and draped in the usual sterile fashion. Local | | anesthetic was thengiven near the antecubital fossa and the distal right arm basilic | | vein wasaccessed using a micropuncture needle. A micropuncture sheath was theninserted | | over a wire and a fistulogram was then performed. On fistulogramthere was a occlusion of | | the right subclavian vein. Therefore a 6-Frenchsheath was then inserted over a wire. A | | Glidewire was then used toattempt crossing of right subclavian occlusion and a 3 x 40 mm | | and then8 x 40 mm angioplasty balloon was used to attempt recanalization of | | occludedright subclavian vein. However, this proved to be unsuccessful. Therefore | | apursestring of 3-0 Prolene was placed around the sheath and the sheath wasremoved and | | hemostasis was ensured. A left upper extremity venogram wasthen performed through the | | left arm IV with the findings as described above. The patient's right groin was then | | prepped and draped in theusual sterile fashion. Local anesthetic was then given to the | | right groin and theright femoral vein was accessed using a micropuncture needle. | | Amicropuncture wire was then inserted. A micropuncture sheath was theninserted over the | | wire. Next, local anesthetic was then given to the right thighand a 35 cm catheter was | | tunneled from the right thigh tothe right groin. Once the catheter was in place, a stiff | | wire was placed throughthe micropuncture sheath and serial dilators were then used to | | dilate the rightcommon femoral vein tract. Once the right femoral vein was dilated with | | the dilators, anintroducer sheath was inserted over a wire. The introducer was then | | removedand the catheter was then inserted into the right common femoral vein withthe tip | | of the catheter being placed into the IVC. Once thecatheter was placed, the sheath was | | then removed and hemostasis was thenassured. The catheter was then aspirated first and | | flushed with heparinized saline.The catheter was then instilled with concentrated | | heparin as indicated.The groin incision was then closed with 3-0 Vicryl in a | | subcuticularfashion and Dermabond was then placed on the skin. The catheter was | | thensecured to the skin using 3-0 Prolene sutures. Once the catheter wassecured, sterile | | dressings were then applied. At the end of the case,sponge, needle and instrument | | counts were correct x2. There were noapparent complications. IMPRESSION1. 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 Probable left proximal subclavian occlusion with poor | | filling of left innominate vein.3. Proper placement of right femoral vein tunneled | | dialysis catheter with tip in IVC.4. Will need CT chest venogram to better evaluate for | | central veins. | |pursestring of 3-0 Prolene was placed around the sheath and the sheath was | |removed and hemostasis was ensured. A left upper extremity venogram was | |then performed through the left arm IV with the findings as described above. | | | |The patient's right groin was then prepped and draped in the | |usual sterile fashion. Local anesthetic was then given to the right groin and the | |right femoral vein was accessed using a micropuncture needle. A | |micropuncture wire was then inserted. A micropuncture sheath was then | |inserted over the wire. Next, local anesthetic was then given to the right thigh | |and a 35 cm catheter was tunneled from the right thigh to | |the right groin. Once the catheter was in place, a stiff wire was placed through | |the micropuncture sheath and serial dilators were then used to dilate the right | |common femoral vein tract. Once the right femoral vein was dilated with the dilators, an | |introducer sheath was inserted over a wire. The introducer was then removed | |and the catheter was then inserted into the right common femoral vein with | |the tip of the catheter being placed into the IVC. Once the | |catheter was placed, the sheath was then removed and hemostasis was then | |assured. The catheter was then aspirated first and flushed with heparinized saline. | |The catheter was then instilled with concentrated heparin as indicated. | |The groin incision was then closed with 3-0 Vicryl in a subcuticular | |fashion and Dermabond was then placed on the skin. The catheter was then | |secured to the skin using 3-0 Prolene sutures. Once the catheter was | |secured, sterile dressings were then applied. At the end of the case, | |sponge, needle and instrument counts were correct x2. There were no | |apparent complications. | | | |IMPRESSION | |1. 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 | |2. Probable left proximal subclavian occlusion with poor filling of left innominate vein. | |3. Proper placement of right femoral vein tunneled dialysis catheter with tip in IVC. | |4. Will need CT chest venogram to better evaluate for central veins. | | | | | + + IR Venogram Upper/lower extremity (09/09/2016 9:25 AM PDT) + + | Specimen | + + | | + + + + + | Narrative | Performed At | + + + | PREOPERATIVE DIAGNOSIS End-stage renal disease, right arm swelling | | | and poorly functioning right brachiobasilic fistula POSTOPERATIVE | | | DIAGNOSIS End-stage renal disease, right arm swelling and poorly | | | functioning right brachiobasilic fistula PROCEDURE 1. Moderate | | | conscious sedation 2. Right arm fistulogram 3. Angioplasty of the | | | right subclavian vein using 3 x 40 mm and then 8 x 40 mm angioplasty | | | balloons 4. Left arm venogram 5. Ultrasound-guided access of right | | | femoral vein 6. Placement of 35 cm tunneled dialysis catheter via | | | right femoral vein under fluoroscopic guidance SURGEON Oskar Meyer, | | | MD [employer] None ANESTHESIA Moderate sedation, local | | | anesthesia. Informed consent was obtained from the patient. | | | Continuous cardiac monitoring was performed throughout the procedure. | | | Conscious sedation was provided by the nursing staff during the | | | procedure under my supervision. Sedation time: 40 minutes | | | Medications: 0.5 mg Versed IV, 25 mcg Fentanyl IV ESTIMATED BLOOD | | | LOSS Minimal. CONTRAST USED 55 mL of Isovue-250 INDICATIONS | | | Mr. Potter is a pleasant 51-year-old male who has a right upper | | | extremity brachiobasilic fistula which has been having issues with | | | difficult access and arm swelling. FINDINGS Right brachiobasilic | | | fistula was widely patent without significant stenosis. Right | | | subclavian vein was occluded just proximal to junction with cephalic | | | vein. Attempted crossing and angioplasty but this was unsuccessful. | | | Left arm venogram done which shows near occlusion of left subclavian | | | vein near origin with poor filling of the left innominate vein. | | | Unable to determine if patient has SVC occlusion due to poor filling | | | in the left upper extremity veins. Therefore, right groin tunneled | | | catheter placed with tip in IVC. Will need CT venogram of chest to | | | better evaluate central veins. DESCRIPTION OF PROCEDURE The | | | patient was properly identified and brought to the catheterization | | | lab. The patient was placed supine on the catheterization lab table | | | and the patient was given moderate sedation. The patient's right arm | | | was then prepped and draped in the usual sterile fashion. Local | | | anesthetic was then given near the antecubital fossa and the distal | | | right arm basilic vein was accessed using a micropuncture needle. A | | | micropuncture sheath was then inserted over a wire and a fistulogram | | | was then performed. On fistulogram there was a occlusion of the right | | | subclavian vein. Therefore a 6-[place] sheath was then inserted over | | | a wire. A Glidewire was then used to attempt crossing of right | | | subclavian occlusion and a 3 x 40 mm and then 8 x 40 mm angioplasty | | | balloon was used to attempt recanalization of occluded right | | | subclavian vein. However, this proved to be unsuccessful. Therefore a | | | pursestring of 3-0 Prolene was placed around the sheath and the | | | sheath was removed and hemostasis was ensured. A left upper extremity | | | venogram was then performed through the left arm IV with the | | | findings as described above. The patient's right groin was then | | | prepped and draped in the usual sterile fashion. Local anesthetic was | | | then given to the right groin and the right femoral vein was | | | accessed using a micropuncture needle. A micropuncture wire was then | | | inserted. A micropuncture sheath was then inserted over the wire. | | | Next, local anesthetic was then given to the right thigh and a 35 | | | cm catheter was tunneled from the right thigh to the right groin. | | | Once the catheter was in place, a stiff wire was placed through the | | | micropuncture sheath and serial dilators were then used to dilate the | | | right common femoral vein tract. Once the right femoral vein was | | | dilated with the dilators, an introducer sheath was inserted over a | | | wire. The introducer was then removed and the catheter was then | | | inserted into the right common femoral vein with the tip of the | | | catheter being placed into the IVC. Once the catheter was placed, the | | | sheath was then removed and hemostasis was then assured. The | | | catheter was then aspirated first and flushed with heparinized saline. | | | The catheter was then instilled with concentrated heparin as | | | indicated. The groin incision was then closed with 3-0 Vicryl in a | | | subcuticular fashion and Dermabond was then placed on the skin. The | | | catheter was then secured to the skin using 3-0 Prolene sutures. Once | | | the catheter was secured, sterile dressings were then applied. At | | | the end of the case, sponge, needle and instrument counts were | | | correct x2. There were no apparent complications. IMPRESSION 1. 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 2. Probable left | | | proximal subclavian occlusion with poor filling of left innominate | | | vein. 3. Proper placement of right femoral vein tunneled dialysis | | | catheter with tip in IVC. 4. Will need CT chest venogram to better | | | evaluate for central veins. | | + + + + + | Procedure Note | + + | Khalif Palm Conversion - 02/04/2019 10:13 PM PDT PREOPERATIVE DIAGNOSISEnd-stage renal | | disease, right arm swelling and poorly functioning right brachiobasilic fistula | | POSTOPERATIVE DIAGNOSISEnd-stage renal disease, right arm swelling and poorly | | functioning right brachiobasilic fistula PROCEDURE1. Moderate conscious sedation2. Right | | arm fistulogram3. Angioplasty of the right subclavian vein using 3 x 40 mm and then 8 x | | 40 mm angioplasty balloons4. Left arm venogram5. Ultrasound-guided access of right | | femoral vein6. Placement of 35 cm tunneled dialysis catheter via right femoral vein | | under fluoroscopic guidance Yumiko Meyer MD ASSISTANTNone ANESTHESIAModerate | | sedation, local anesthesia. Informed consent was obtained from the patient. Continuous | | cardiac monitoring was performed throughout the procedure.Conscious sedation was | | provided by the nursing staff during the procedure under my supervision.Sedation time: | | 40 minutesMedications: 0.5 mg Versed IV, 25 mcg Fentanyl IV ESTIMATED BLOOD LOSSMinimal. | | CONTRAST USED55 mL of Isovue-250 INDICATIONSMr. Tariq is a pleasant 51-year-old male who | | has a right upper extremitybrachiobasilic fistula which has been having issues with | | difficult access and arm swelling. FINDINGSRight brachiobasilic fistula was widely | | patent without significant stenosis. Right subclavian vein was occluded just proximal to | | junction with cephalic vein. Attempted crossing and angioplasty but this was | | unsuccessful. Left arm venogram done which shows near occlusion of left subclavian vein | | near origin with poor filling of the left innominate vein. Unable to determine if | | patient has SVC occlusion due to poor filling in the left upper extremity veins. | | Therefore, right groin tunneled catheter placed with tip in IVC. Will need CT venogram | | of chest to better evaluate central veins. DESCRIPTION OF PROCEDUREThe patient was | | properly identified and brought to the catheterizationlab. The patient was placed supine | | on the catheterization lab table andthe patient was given moderate sedation. The | | patient's right arm was thenprepped and draped in the usual sterile fashion. Local | | anesthetic was thengiven near the antecubital fossa and the distal right arm basilic | | vein wasaccessed using a micropuncture needle. A micropuncture sheath was theninserted | | over a wire and a fistulogram was then performed. On fistulogramthere was a occlusion of | | the right subclavian vein. Therefore a 6-Frenchsheath was then inserted over a wire. A | | Glidewire was then used toattempt crossing of right subclavian occlusion and a 3 x 40 mm | | and then8 x 40 mm angioplasty balloon was used to attempt recanalization of | | occludedright subclavian vein. However, this proved to be unsuccessful. Therefore | | apursestring of 3-0 Prolene was placed around the sheath and the sheath wasremoved and | | hemostasis was ensured. A left upper extremity venogram wasthen performed through the | | left arm IV with the findings as described above. The patient's right groin was then | | prepped and draped in theusual sterile fashion. Local anesthetic was then given to the | | right groin and theright femoral vein was accessed using a micropuncture needle. | | Amicropuncture wire was then inserted. A micropuncture sheath was theninserted over the | | wire. Next, local anesthetic was then given to the right thighand a 35 cm catheter was | | tunneled from the right thigh tothe right groin. Once the catheter was in place, a stiff | | wire was placed throughthe micropuncture sheath and serial dilators were then used to | | dilate the rightcommon femoral vein tract. Once the right femoral vein was dilated with | | the dilators, anintroducer sheath was inserted over a wire. The introducer was then | | removedand the catheter was then inserted into the right common femoral vein withthe tip | | of the catheter being placed into the IVC. Once thecatheter was placed, the sheath was | | then removed and hemostasis was thenassured. The catheter was then aspirated first and | | flushed with heparinized saline.The catheter was then instilled with concentrated | | heparin as indicated.The groin incision was then closed with 3-0 Vicryl in a | | subcuticularfashion and Dermabond was then placed on the skin. The catheter was | | thensecured to the skin using 3-0 Prolene sutures. Once the catheter wassecured, sterile | | dressings were then applied. At the end of the case,sponge, needle and instrument | | counts were correct x2. There were noapparent complications. IMPRESSION1. 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 Probable left proximal subclavian occlusion with poor | | filling of left innominate vein.3. Proper placement of right femoral vein tunneled | | dialysis catheter with tip in IVC.4. Will need CT chest venogram to better evaluate for | | central veins. | |pursestring of 3-0 Prolene was placed around the sheath and the sheath was | |removed and hemostasis was ensured. A left upper extremity venogram was | |then performed through the left arm IV with the findings as described above. | | | |The patient's right groin was then prepped and draped in the | |usual sterile fashion. Local anesthetic was then given to the right groin and the | |right femoral vein was accessed using a micropuncture needle. A | |micropuncture wire was then inserted. A micropuncture sheath was then | |inserted over the wire. Next, local anesthetic was then given to the right thigh | |and a 35 cm catheter was tunneled from the right thigh to | |the right groin. Once the catheter was in place, a stiff wire was placed through | |the micropuncture sheath and serial dilators were then used to dilate the right | |common femoral vein tract. Once the right femoral vein was dilated with the dilators, an | |introducer sheath was inserted over a wire. The introducer was then removed | |and the catheter was then inserted into the right common femoral vein with | |the tip of the catheter being placed into the IVC. Once the | |catheter was placed, the sheath was then removed and hemostasis was then | |assured. The catheter was then aspirated first and flushed with heparinized saline. | |The catheter was then instilled with concentrated heparin as indicated. | |The groin incision was then closed with 3-0 Vicryl in a subcuticular | |fashion and Dermabond was then placed on the skin. The catheter was then | |secured to the skin using 3-0 Prolene sutures. Once the catheter was | |secured, sterile dressings were then applied. At the end of the case, | |sponge, needle and instrument counts were correct x2. There were no | |apparent complications. | | | |IMPRESSION | |1. 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 | |2. Probable left proximal subclavian occlusion with poor filling of left innominate vein. | |3. Proper placement of right femoral vein tunneled dialysis catheter with tip in IVC. | |4. Will need CT chest venogram to better evaluate for central veins. | | | | | + + POC Glucose (09/08/2016 3:48 PM PDT) + + + + + + | Component | Value | Ref Range | Performed | Pathologist | | | | | At | Signature | + + + + + + | Glucose, | 148 (H)Comment: Testing | 65 - 99 mg/dL | EXTERNAL | | | Fingerstick | [place] [facility] [place] | | LAB | | | | [facility];[place], [place] | | | | | | [address] | | | | + + + + + + + + | Specimen | + + | | + + + +---------+ + + | Performing | Address | City/State/Zipcode | Phone Number | | Organization | | | | + +---------+ + + | EXTERNAL LAB | | | | + +---------+ + + POC Glucose (09/08/2016 11:49 AM PDT) + + + + + + | Component | Value | Ref Range | Performed | Pathologist | | | | | At | Signature | + + + + + + | Glucose, | 113 (H)Comment: Testing | 65 - 99 mg/dL | EXTERNAL | | | Fingerstick | performed at [facility] [place] | | LAB | | | | [address];[place], [place] | | | | | | [address] | | | | + + + + + + + + | Specimen | + + | | + + + +---------+ + + | Performing | Address | City/State/Zipcode | Phone Number | | Organization | | | | + +---------+ + + | EXTERNAL LAB | | | | + +---------+ + + External Lab: CBC (09/08/2016 5:34 AM PDT) + + + + + + | Component | Value | Ref Range | Performed | Pathologist | | | | | At | Signature | + + + + + + | WBC | 9.91Comment: Testing | 3.80 - 11.00 | EXTERNAL | | | | performed at [facility], [address] | K/uL | LAB | | | | [address], | | | | | | [place] [address] | | | | + + + + + + | Non- | 3.39 (L)Comment: Testing | 4.20 - 5.70 | EXTERNAL | | | Red Blood | performed at [facility], [address] | M/uL | LAB | | | Cells | [address], | | | | | Counted | [place] [address] | | | | + + + + + + | Hemoglobin | 10.4 (L)Comment: Testing | 13.2 - 17.0 | EXTERNAL | | | | performed at [facility], [address] | g/dL | LAB | | | | [address], | | | | | | [place] [address] | | | | + + + + + + | Hematocrit, | 29.7 (L)Comment: Testing | 39.0 - 50.0 % | EXTERNAL | | | POC | performed at [facility], [address] | | LAB | | | | [address], | | | | | | [place] [address] | | | | + + + + + + | MCV | 87.6Comment: Testing | 80.0 - 100.0 fl | EXTERNAL | | | | performed at [facility], [address] | | LAB | | | | [address], | | | | | | [place] [address] | | | | + + + + + + | MCH | 30.5Comment: Testing | 27.0 - 34.0 pg | EXTERNAL | | | | performed at [facility], [address] | | LAB | | | | [address], | | | | | | [place] [address] | | | | + + + + + + | MCHC | 34.9Comment: Testing | 32.0 - 35.5 | EXTERNAL | | | | performed at [facility], [address] | g/dL | LAB | | | | [address], | | | | | | [place] [address] | | | | + + + + + + | RDW-CV | 52.9Comment: Testing | 37 - 53 fl | EXTERNAL | | | | performed at [facility], [address] | | LAB | | | | [address], | | | | | | [place] [address] | | | | + + + + + + | Platelet | 255Comment: Testing | 150 - 400 K/uL | EXTERNAL | | | Count | performed at [facility], [address] | | LAB | | | Plasma | [address], | | | | | | [place] [address] | | | | + + + + + + | MPV | 6.8Comment: Testing | fl | EXTERNAL | | | | performed at [facility], [address] | | LAB | | | | [address], | | | | | | [place] [address] | | | | + + + + + + | Differentia | MANUALComment: Testing | | EXTERNAL | | | l Type | performed at [facility], [address] | | LAB | | | | [address], | | | | | | [place] [address] | | | | + + + + + + | Segmented | 95Comment: Testing | % | EXTERNAL | | | Neutrophils | performed at [facility], [address] | | LAB | | | Manual | [address], | | | | | | [place] [address] | | | | + + + + + + | Lymphocytes | 3Comment: Testing | % | EXTERNAL | | | Manual | performed at [facility], [address] | | LAB | | | | [address], | | | | | | [place] [address] | | | | + + + + + + | Monocytes | 2Comment: Testing | % | EXTERNAL | | | Manual | performed at [facility], [address] | | LAB | | | | [address], | | | | | | [place] [address] | | | | + + + + + + | Absolute | 9.41 (H)Comment: Testing | 1.90 - 7.40 | EXTERNAL | | | Neutrophils | performed at [facility], [address] | K/uL | LAB | | | | [address], | | | | | | [place] [address] | | | | + + + + + + | Absolute | 0.30 (L)Comment: Testing | 1.00 - 3.90 | EXTERNAL | | | Lymphocytes | performed at [facility], [address] | K/uL | LAB | | | | [address], | | | | | | [place] [address] | | | | + + + + + + | Absolute | 0.20Comment: Testing | 0.00 - 0.80 | EXTERNAL | | | Monocytes | performed at [facility], [address] | K/uL | LAB | | | | [address], | | | | | | [place] [address] | | | | + + + + + + | RBC | RBC AND PLT MORPHOLOGY | | EXTERNAL | | | Morphology | APPEAR NORMALComment: | | LAB | | | | Testing performed at | | | | | | [facility], [address] [facility] | | | | | | [place] | | | | | | [address] | | | | + + + + + + + + | Specimen | + + | Blood specimen | | (specimen) | + + + +---------+ + + | Performing | Address | City/State/Zipcode | Phone Number | | Organization | | | | + +---------+ + + | EXTERNAL LAB | | | | + +---------+ + + Phosphorus (09/08/2016 5:34 AM PDT) + + + + + + | Component | Value | Ref Range | Performed | Pathologist | | | | | At | Signature | + + + + + + | PHOSPHORUS | 4.9 (H)Comment: Testing | 2.3 - 4.8 mg/dL | EXTERNAL | | | | performed at [facility], [address] | | LAB | | | | [address], | | | | | | [place] [address] | | | | + + + + + + + + | Specimen | + + | Blood specimen | | (specimen) | + + + +---------+ + + | Performing | Address | City/State/Zipcode | Phone Number | | Organization | | | | + +---------+ + + | EXTERNAL LAB | | | | + +---------+ + + Magnesium (09/08/2016 5:34 AM PDT) + + + + + + | Component | Value | Ref Range | Performed | Pathologist | | | | | At | Signature | + + + + + + | Magnesium | 2.4Comment: Testing | 1.7 - 2.4 mg/dL | EXTERNAL | | | | performed at [facility], [address] | | LAB | | | | [address], | | | | | | [place] [address] | | | | + + + + + + + + | Specimen | + + | Blood specimen | | (specimen) | + + + +---------+ + + | Performing | Address | City/State/Zipcode | Phone Number | | Organization | | | | + +---------+ + + | EXTERNAL LAB | | | | + +---------+ + + CK Total (09/08/2016 5:34 AM PDT) + + + + + + | Component | Value | Ref Range | Performed | Pathologist | | | | | At | Signature | + + + + + + | CK, Total | 177Comment: Testing | 55 - 400 U/L | EXTERNAL | | | | performed at [facility] [place] | | LAB | | | | [address];[place], [place] | | | | | | [address] | | | | + + + [...] + +---------+ + + Comprehensive Metabolic Panel (09/08/2016 5:34 AM PDT) + + + + + + | Component | Value | Ref Range | Performed | Pathologist | | | | | At | Signature | + + + + + + | Na | 135Comment: Testing | 135 - 145 | EXTERNAL | | | | performed at [facility], [address] | mmol/L | LAB | | | | [address], | | | | | | [place] [address] | | | | + + + + + + | K | 4.4Comment: Testing | 3.5 - 4.9 | EXTERNAL | | | | performed at [facility], [address] | mmol/L | LAB | | | | [address], | | | | | | [place] [address] | | | | + + + + + + | Cl | 98 (L)Comment: Testing | 99 - 109 mmol/L | EXTERNAL | | | | performed at [facility], [address] | | LAB | | | | [address], | | | | | | [place] [address] | | | | + + + + + + | CO2 | 22 (L)Comment: Testing | 23 - 32 mmol/L | EXTERNAL | | | | performed at [facility], [address] | | LAB | | | | [address], | | | | | | [place] [address] | | | | + + + + + + | Anion Gap | 19Comment: Testing | 5 - 20 mmol/L | EXTERNAL | | | | performed at [facility], [address] | | LAB | | | | [address], | | | | | | [place] [address] | | | | + + + + + + | Glucose, | 169 (H)Comment: Testing | 65 - 99 mg/dL | EXTERNAL | | | Fasting | performed at [facility], [address] | | LAB | | | | [address], | | | | | | [place] [address] | | | | + + + + + + | BUN | 41 (H)Comment: Testing | 8 - 25 mg/dL | EXTERNAL | | | | performed at [facility], [address] | | LAB | | | | [address], | | | | | | [place] [address] | | | | + + + + + + | Creatinine | 5.5 (H)Comment: Testing | 0.70 - 1.30 | EXTERNAL | | | | performed at [facility], [address] | mg/dL | LAB | | | | [address], | | | | | | [place] [address] | | | | + + + + + + | BUN/Creatin | 7Comment: Testing | | EXTERNAL | | | ine Ratio | performed at [facility], [address] | | LAB | | | | [address], | | | | | | [place] [address] | | | | + + + + + + | Calcium | 8.5Comment: Testing | 8.5 - 10.5 | EXTERNAL | | | | performed at [facility], [address] | mg/dL | LAB | | | | [address], | | | | | | [place] [address] | | | | + + + + + + | Protein, | 7.4Comment: Testing | 6.3 - 8.2 g/dL | EXTERNAL | | | Total | performed at [facility], [address] | | LAB | | | | [address], | | | | | | [place] [address] | | | | + + + + + + | Albumin | 3.5 (L)Comment: Testing | 3.6 - 5.0 g/dL | EXTERNAL | | | | performed at [facility], [address] | | LAB | | | | [address], | | | | | | [place] [address] | | | | + + + + + + | Globulin | 3.9Comment: Testing | 1.3 - 4.9 g/dL | EXTERNAL | | | | performed at [facility], [address] | | LAB | | | | [address], | | | | | | [place] [address] | | | | + + + + + + | A/G Ratio | 0.9 (L)Comment: Testing | 1.0 - 2.4 | EXTERNAL | | | | performed at [facility], [address] | | LAB | | | | [address], | | | | | | [place] [address] | | | | + + + + + + | Bilirubin | 0.8Comment: Testing | 0.1 - 1.5 mg/dL | EXTERNAL | | | Total | performed at [facility], [address] | LAB | | | | [address], | | | | | | [place] [address] | | | | + + + + + + | ALP, | 81Comment: Testing | 35 - 115 U/L | EXTERNAL | | | External | performed at [facility], [address] | | LAB | | | | [address], | | | | | | [place] [address] | | | | + + + + + + | AST | 23Comment: Testing | 10 - 45 U/L | EXTERNAL | | | | performed at [facility], [address] | | LAB | | | | [address], | | | | | | [place] [address] | | | | + + + + + + | ALT | 35Comment: Testing | 10 - 65 U/L | EXTERNAL | | | | performed at [facility], [address] | | LAB | | | | [address], | | | | | | [place] [address] | | | | + + + [...] | | | | | | at [facility], [address] | | | | | | [address], | | | | | | [place] [address] | | | | + + + + + + + + | Specimen | + + | Blood specimen | | (specimen) | + + + +---------+ + + | Performing | Address | City/State/Zipcode | Phone Number | | Organization | | | | + +---------+ + + | EXTERNAL LAB | | | | + +---------+ + + POC Glucose (09/08/2016 5:10 AM PDT) + + + + + + | Component | Value | Ref Range | Performed | Pathologist | | | | | At | Signature | + + + + + + | Glucose, | 160 (H)Comment: Testing | 65 - 99 mg/dL | EXTERNAL | | | Fingerstick | performed at [facility] | | [address] | | | | [address];[place] | | | | | | [address] | | | | + + + + + + + + | Specimen | + + | | + + + +---------+ + + | Performing | Address | City/State/Zipcode | Phone Number | | Organization | | | | + +---------+ + + | EXTERNAL LAB | | | | + +---------+ + + ECG 12 lead (09/08/2016 12:03 AM PDT) + + + + + + | Component | Value | Ref Range | Performed | Pathologist | | | | | At | Signature | + + + + + + | DIAGNOSIS: | Sinus rhythm with 1st | | EXTERNAL | | | | degree A-V blockLeft | | LAB | | | | axis | | | | | | deviationNon-specific | | | | | | intra-ventricular | | | | | | conduction delayAbnormal | | | | | | ECGWhen compared with | | | | | | ECG of 07-SEP-2016 | | | | | | 20:47,No significant | | | | | | change was | | | | | | foundConfirmed by | | | | | | FABIAN DALTON ([id number]) on | | | | | | 09/08/2016 11:45:23 AM | | | | + + + + + + + + | Specimen | + + | | + + + + + | Narrative | Performed At | + + + | Historically converted procedure from [facility] environment | EXTERNAL LAB | + + + + +---------+ + + | Performing | Address | City/State/Zipcode | Phone Number | | Organization | | | | + +---------+ + + | EXTERNAL LAB | | | | + +---------+ + + XR Chest 1 Vw (09/07/2016 11:52 PM PDT) + + | Specimen | + + | | + + + + + | Impressions | Performed At | + + + | Normal single view chest. RADIA Electronically signed by | | | Kevin Ely MD on Sep 08 2016 1:06AM Referring Provider Line: | | | [phone] ID: [id number] | | + + + + + + | Narrative | Performed At | + + + | EXAM: CHEST RADIOGRAPHY EXAM DATE: 09/07/2016 11:53 PM. | | | CLINICAL HISTORY: Hyperkalemia, end-stage renal disease | | | COMPARISON: 04/28/2016. TECHNIQUE: 1 view. FINDINGS: | | | Lungs/Pleura: No focal opacities evident. No pleural effusion. No | | | pneumothorax. Mediastinum: Within exam limitations, | | | cardiomediastinal contour is normal. Other: None. | | + + + + + | Procedure Note | + + | Néstor, Rad Conversion - 02/04/2019 10:13 PM PDT EXAM:CHEST RADIOGRAPHY EXAM DATE: | | 09/07/2016 11:53 PM. CLINICAL HISTORY: Hyperkalemia, end-stage renal disease COMPARISON: | | 04/28/2016. TECHNIQUE: 1 view. FINDINGS:Lungs/Pleura: No focal opacities evident. No | | pleural effusion. No pneumothorax. Mediastinum: Within exam limitations, | | cardiomediastinal contour is normal. Other: None. IMPRESSION: Normal single view chest. | | RADIA Electronically signed by Kevin Ely MD on Sep 08 2016 1:06AM Referring | | Provider Line: [phone] ID: [id number] | |COMPARISON: 04/28/2016. | | | |TECHNIQUE: 1 view. | | | |FINDINGS: | |Lungs/Pleura: No focal opacities evident. No pleural effusion. No pneumothorax. | | | |Mediastinum: Within exam limitations, cardiomediastinal contour is normal. | | | |Other: None. | | | |IMPRESSION: | |Normal single view chest. | | | |RADIA | | | | Electronically signed by Kevin Ely MD on Sep 08 2016 1:06AM Referring Provider Mariah ne: [phone] ID: [id number] | + + POC Glucose (09/07/2016 11:47 PM PDT) + + + + + + | Component | Value | Ref Range | Performed | Pathologist | | | | | At | Signature | + + + + + + | Glucose, | 115 (H)Comment: Testing | 65 - 99 mg/dL | EXTERNAL | | | Fingerstick | performed at [facility] | | [address] | | | | [address];[place], [place] | | | | | | [address] | | | | + + + + + + + + | Specimen | + + | | + + + +---------+ + + | Performing | Address | City/State/Zipcode | Phone Number | | Organization | | | | + +---------+ + + | EXTERNAL LAB | | | | + +---------+ + + POC Glucose (09/07/2016 9:40 PM PDT) + + + + + + | Component | Value | Ref Range | Performed | Pathologist | | | | | At | Signature | + + + + + + | Glucose, | 223 (H)Comment: Testing | 65 - 99 mg/dL | EXTERNAL | | | Fingerstick | performed at [facility] | | LAB | | | | [address];[place] | | | | | | [address] | | | | + + + + + + + + | Specimen | + + | | + + + +---------+ + + | Performing | Address | City/State/Zipcode | Phone Number | | Organization | | | | + +---------+ + + | EXTERNAL LAB | | | | + +---------+ + + Urinalysis, Reflex Microscopic and/or Culture (09/07/2016 9:00 PM PDT) + + + + + + | Component | Value | Ref Range | Performed | Pathologist | | | | | At | Signature | + + + + + + | Color | STRAWComment: Testing | | EXTERNAL | | | | performed at [facility] | | LAB | | | | [address];[place] | | | | | | [address] | | | | + + + + + + | Clarity, | CLEARComment: Testing | | EXTERNAL | | | Urine | performed at [facility] | | LAB | | | | [address];[place] | | | | | | [address] | | | | + + + + + + | Specific | 1.008Comment: Testing | 1.002 - 1.030 | EXTERNAL | | | Shiro, | performed at [facility] | | LAB | | | Urine | [address];[place] | | | | | | [address] | | | | + + + + + + | Leukocyte | NEGATIVEComment: Testing | | EXTERNAL | | | Esterase, | performed at [facility] | | LAB | | | Urine | [address];[place] | | | | | | [address] | | | | + + + + + + | Nitrite, | NEGATIVEComment: Testing | | EXTERNAL | | | Urine | performed at [facility] | | LAB | | | | [address];[place] | | | | | | [address] | | | | + + + + + + | Urobilinoge | NORMALComment: Testing | mg/dL | EXTERNAL | | | n, Urine | performed at [facility] | | LAB | | | | [address];[place] | | | | | | [address] | | | | + + + + + + | Protein, | 100 (A)Comment: Testing | mg/dL | EXTERNAL | | | Urine | performed at [facility] | | LAB | | | | [address];[place] | | | | | | [address] | | | | + + + + + + | pH, Urine | 6.0Comment: Testing | 5.0 - 8.0 | EXTERNAL | | | | performed at [facility] | | LAB | | | | [address];[place] | | | | | | [address] | | | | + + + + + + | Blood, | SMALL (A)Comment: | | EXTERNAL | | | Urine | Testing performed at | | LAB | | | | [facility];[place] [address] | | | | + + + + + + | Ketones | NEGATIVEComment: Testing | mg/dL | EXTERNAL | | | | performed at [facility] | | LAB | | | | [address];[place] | | | | | | [address] | | | | + + + + + + | Bilirubin, | NEGATIVEComment: Testing | | EXTERNAL | | | Urine | performed at [facility] | | LAB | | | | [address];[place] | | | | | | [address] | | | | + + + + + + | Glucose, | >500 (A)Comment: Testing | mg/dL | EXTERNAL | | | Urine | performed at [facility] | | LAB | | | | [address];[place] | | | | | | [address] | | | | + + + + + + | WBC, UA | 0-2Comment: Testing | 0 - 5 /hpf | EXTERNAL | | | | performed at [facility] | | LAB | | | | [address];[place] | | | | | | [address] | | | | + + + + + + | RBC, UA | NONE SEENComment: | 0 - 2 /hpf | EXTERNAL | | | | Testing performed at | | LAB | | | | [facility];[place] [address] | | | | + + + + + + | Bacteria, | NONE SEENComment: | | EXTERNAL | | | UA | Testing performed at | | LAB | | | | [facility];[place] [address] | | | | + + + + + + | Epithelial | 26-49Comment: Testing | /lpf | EXTERNAL | | | Cells | performed at [facility] | | LAB | | | | [address];[place] | | | | | | [address] | | | | + + + + + + + + | Specimen | + + | | + + + +---------+ + + | Performing | Address | City/State/Zipcode | Phone Number | | Organization | | | | + +---------+ + + | EXTERNAL LAB | | | | + +---------+ + + ECG 12 lead (09/07/2016 8:47 PM PDT) + + + + + + | Component | Value | Ref Range | Performed | Pathologist | | | | | At | Signature | + + + + + + | DIAGNOSIS: | Sinus rhythm with 1st | | EXTERNAL | | | | degree A-V blockLeft | | LAB | | | | axis | | | | | | deviationNon-specific | | | | | | intra-ventricular | | | | | | conduction delayAbnormal | | | | | | ECGWhen compared with | | | | | | ECG of 04-APR-2014 | | | | | | 14:20,[place] interval has | | | | | | increasedQRS duration | | | | | | has increasedT wave | | | | | | amplitude has increased | | | | | | in Anterior leadsThis | | | | | | ECG [...] (500), | | | | | | 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 | | | | | | (125) on 09/08/2016 | | | | | | 5:36:27 AM | | | | + + + + + + + + | Specimen | + + | | + + + + + | Narrative | Performed At | + + + | [facility] | EXTERNAL LAB | + + + + +---------+ + + | Performing | Address | City/State/Zipcode | Phone Number | | Organization | | | | + +---------+ + + | EXTERNAL LAB | | | | + +---------+ + + Protime INR (09/07/2016 8:23 PM PDT) + + + + + + | Component | Value | Ref Range | Performed | Pathologist | | | | | At | Signature | + + + + + + | INR | 0.9Comment: REFERENCE | | [...] | | performed at [facility] | | | | | | [address];[place], [place] | | | | | | [address] | | | | + + + [...] + +---------+ + + External Lab: REBECA (09/07/2016 8:23 PM PDT) + + + + + + | Component | Value | Ref Range | Performed | Pathologist | | | | | At | Signature | + + + + + + | WBC | 10.97Comment: Testing | 3.80 - 11.00 | EXTERNAL | | | | performed at [facility] | K/uL | LAB | | | | [address];[place] | | | | | | [address] | | | | + + + + + + | Non- | 3.37 (L)Comment: Testing | 4.20 - 5.70 | EXTERNAL | | | Red Blood | performed at [facility] | M/uL | LAB | | | Cells | [address];[place] | | | | | Counted | [address] | | | | + + + + + + | Hemoglobin | 10.4 (L)Comment: Testing | 13.2 - 17.0 | EXTERNAL | | | | performed at [facility] | g/dL | LAB | | | | [address];[place] | | | | | | [address] | | | | + + + + + + | Hematocrit, | 30.4 (L)Comment: Testing | 39.0 - 50.0 % | EXTERNAL | | | POC | performed at [facility] | | LAB | | | | [address];[place] | | | | | | [address] | | | | + + + + + + | MCV | 90.1Comment: Testing | 80.0 - 100.0 fl | EXTERNAL | | | | performed at [facility] | | LAB | | | | [address];[place] | | | | | | [address] | | | | + + + + + + | MCH | 30.8Comment: Testing | 27.0 - 34.0 pg | EXTERNAL | | | | performed at [facility] | | LAB | | | | [address];[place] | | | | | | [address] | | | | + + + + + + | MCHC | 34.1Comment: Testing | 32.0 - 35.5 | EXTERNAL | | | | performed at [facility] | g/dL | LAB | | | | [address];[place] | | | | | | [address] | | | | + + + + + + | RDW-CV | 54.7 (H)Comment: Testing | 37 - 53 fl | EXTERNAL | | | | performed at [facility] | | LAB | | | | [address];[place] | | | | | | [address] | | | | + + + + + + | Platelet | 224Comment: Testing | 150 - 400 K/uL | EXTERNAL | | | Count | performed at [facility] | | LAB | | | Plasma | [address];[place] | | | | | | [address] | | | | | | | | | | + + + + + + | MPV | 6.5Comment: Testing | fl | EXTERNAL | | | | performed at [facility] | | LAB | | | | [address];[place] | | | | | | [address] | | | | | | | | | | + + + + + + | Differentia | MANUALComment: Testing | | EXTERNAL | | | l Type | performed at [facility] | | LAB | | | | [address];[place] | | | | | | [address] | | | | + + + + + + | Segmented | 86Comment: Testing | % | EXTERNAL | | | Neutrophils | performed at [facility] | | LAB | | | Manual | [address];[place] | | | | | | [address] | | | | + + + + + + | % Bands | 11Comment: Testing | % | EXTERNAL | | | | performed at [facility] | | LAB | | | | [address];[place] | | | | | | [address] | | | | + + + + + + | Lymphocytes | 2Comment: Testing | % | EXTERNAL | | | Manual | performed at [facility] | | LAB | | | | [address];[place] | | | | | | [address] | | | | + + + + + + | Monocytes | 1Comment: Testing | % | EXTERNAL | | | Manual | performed at [facility] | | LAB | | | | [address];[place] | | | | | | [address] | | | | + + + + + + | Absolute | 9.43 (H)Comment: Testing | 1.90 - 7.40 | EXTERNAL | | | Neutrophils | performed at [facility] | K/uL | LAB | | | | [address];[place] | | | | | | [address] | | | | + + + + + + | Bands | 1.21 (H)Comment: Testing | 0.00 - 0.20 | EXTERNAL | | | Manual | performed at [facility] | K/uL | LAB | | | | [address];[place] | | | | | | [address] | | | | + + + + + + | Absolute | 0.22 (L)Comment: Testing | 1.00 - 3.90 | EXTERNAL | | | Lymphocytes | performed at [facility] | K/uL | LAB | | | | [address];[place] | | | | | | [address] | | | | + + + + + + | Absolute | 0.11Comment: Testing | 0.00 - 0.80 | EXTERNAL | | | Monocytes | performed at [facility] | K/uL | LAB | | | | [address];[place] | | | | | | [address] | | | | + + + + + + | Platelet | ADEQUATEComment: Testing | | EXTERNAL | | | Estimate | performed at [facility] | | LAB | | | | [address];[place] | | | | | | [address] | | | | + + + + + + | RBC | RBC AND PLT MORPHOLOGY | | EXTERNAL | | | Morphology | APPEAR NORMALComment: | | LAB | | | | Testing performed at | | | | | | [facility];[place] [address] | | | | + + + [...] + +---------+ + + Comprehensive Metabolic Panel (09/07/2016 8:23 PM PDT) + + + + + + | Component | Value | Ref Range | Performed | Pathologist | | | | | At | Signature | + + + + + + | Na | 131 (L)Comment: Testing | 135 - 145 | EXTERNAL | | | | performed at [facility] | mmol/L | LAB | | | | [address];[place] | | | | | | [address] | | | | + + + + + + | K | 6.9 ()Comment: RESULT | 3.5 - 4.9 | EXTERNAL | | | | READ BACK BY:LORRAINE Rousseau AT | mmol/L | LAB | | | | 2057 BY JSSTesting | | | | | | performed at [facility] | | | | | | [address];[place] | | | | | | [address] | | | | + + + + + + | Cl | 102Comment: Testing | 99 - 109 mmol/L | EXTERNAL | | | | performed at [facility] | | LAB | | | | [address];[place] | | | | | | [address] | | | | + + + + + + | CO2 | 17 (L)Comment: Testing | 23 - 32 mmol/L | EXTERNAL | | | | performed at [facility] | | LAB | | | | [address];[place] | | | | | | [address] | | | | + + + + + + | Anion Gap | 18Comment: Testing | 5 - 20 mmol/L | EXTERNAL | | | | performed at [facility] | | LAB | | | | [address];[place] | | | | | | [address] | | | | + + + + + + | Glucose, | 205 (H)Comment: Testing | 65 - 99 mg/dL | EXTERNAL | | | Fasting | performed at [facility] | | LAB | | | | [address];[place] | | | | | | [address] | | | | + + + + + + | BUN | 87 (H)Comment: Testing | 8 - 25 mg/dL | EXTERNAL | | | | performed at [facility] | | LAB | | | | [address];[place] | | | | | | [address] | | | | + + + + + + | Creatinine | 10 (H)Comment: Testing | 0.70 - 1.30 | EXTERNAL | | | | performed at [facility] | mg/dL | LAB | | | | [address];[place] | | | | | | [address] | | | | + + + + + + | BUN/Creatin | 9Comment: Testing | | EXTERNAL | | | ine Ratio | performed at [facility] | | LAB | | | | [address];[place] | | | | | | [address] | | | | + + + + + + | Calcium | 7.7 (L)Comment: Testing | 8.5 - 10.5 | EXTERNAL | | | | performed at [facility] | mg/dL | LAB | | | | [address];[place] | | | | | | [address] | | | | + + + + + + | Protein, | 7.8Comment: Testing | 6.3 - 8.2 g/dL | EXTERNAL | | | Total | performed at [facility] | | LAB | | | | [address];[place] | | | | | | [address] | | | | + + + + + + | Albumin | 3.6Comment: Testing | 3.6 - 5.0 g/dL | EXTERNAL | | | | performed at [facility] | | LAB | | | | [address];[place] | | | | | | [address] | | | | + + + + + + | Globulin | 4.2Comment: Testing | 1.3 - 4.9 g/dL | EXTERNAL | | | | performed at [facility] | | LAB | | | | [address];[place] | | | | | | [address] | | | | + + + + + + | A/G Ratio | 0.9 (L)Comment: Testing | 1.0 - 2.4 | EXTERNAL | | | | performed at [facility] | | LAB | | | | [address];[place] | | | | | | [address] | | | | + + + + + + | Bilirubin | 0.6Comment: Testing | 0.1 - 1.5 mg/dL | EXTERNAL | | | Total | performed at [facility] | | LAB | | | | [address];[place] | | | | | | [address] | | | | + + + + + + | ALP, | 85Comment: Testing | 35 - 115 U/L | EXTERNAL | | | External | performed at [facility] | | LAB | | | | [address];[place] | | | | | | [address] | | | | + + + + + + | AST | 25Comment: Testing | 10 - 45 U/L | EXTERNAL | | | | performed at [facility] | | LAB | | | | [address];[place] | | | | | | [address] | | | | + + + + + + | ALT | 37Comment: Testing | 10 - 65 U/L | EXTERNAL | | | | performed at [facility] | | LAB | | | | [address];[place] | | | | | | [address] | | | | + + + [...] | | | | | | at [facility];[address];[place] [address] | | | | + + + [...] stage renal disease | + + | S/P pericardiocentesis Other postprocedural status | + + | Hyperkalemia Hyperpotassemia | + + | End-stage renal disease (ESRD) (HCC) | + + | Arteriovenous fistula occlusion, initial encounter (HCC) | + + | Anemia, unspecified type | + + | Wheezes Wheezing | + + | Hyponatremia Hyposmolality and/or hyponatremia | + + | Hematuria Hematuria, unspecified | + + | Pericardial effusion with cardiac tamponade | + + documented in this encounter
--- OUTSIDE RECORDS SUMMARY | ~2020-03-11 | XMS | Encounter Summary ---
Demographics + + + | Address | [address] | | | [place] [address] | + + + | Home Phone | | + + + | Preferred Language | Unknown | + + + | Marital Status | Unknown | + + + | Druze Affiliation | [id number] | + + + [...] Team Providers + +------+ + | Care Picker Tender Name | Role | Phone | + +------+ + PCP | Unavailable | + +------+ + Encounter Details +--------+ + + + + | Date | Type | Department | Care Team | Description | +--------+ + + + + | 10/27/ | Hospital | [facility] | Douglas Mayberry MD | End stage renal | | 2013 - | Encounter | [facility] | [address] | disease (HCC); | | | | CARE [address]LO[address] | [place] [address] | Elevated troponin; | | | | [address] | [phone] | Acute bronchitis; | | 2013 | | [place], [place] | | Anemia of chronic | | | | [address] | | kidney failure; | | | | [phone] | | Chronic obstructive | | | | | | asthma with | | | | | | exacerbation ([facility]); | | | | | | Diabetes mellitus | | | | | | with ESRD (end-stage | | | | | | renal disease) | | | | | | ([facility]); ESRD (end | | | | | | stage renal disease) | | | | | | on dialysis ([facility]); | | | | | | [...] Summaries by Sowmya Shaikh MD at 10/28/13 105 Author: Sowmya Shaikh MD Service: Hospitalist Author Type: Physician Filed: 10/28/13 192 Date of Service: 10/28/131051 Status: Signed Stockroom Inventory Clerk: Sowmya Shaikh MD (Physician) Related Notes: Original Note by Sowmya Shaikh MD (Physician) filed at 10/28/13 1058 Patient ID: Enrique Potter [id number] 48 y.o. 1965 Admit date: 10/27/2013 Discharge date and time: 10/28/13 Admitting Physician: Douglas Mayberry MD Discharge Physician: MD Sana Consults: Primary [...] of 0.13, hence he was transferred to [facility] with asthma exacerbation and abnormal troponin. Otherwise, [...] syndrome. The patient's repeated troponin here in [facility] Ce nter is 0.00. I spent more than 35 minutes on discharge. Discharged Condition: stable Significant Diagnostic Studies: Lab Results Component Value Date WBC 7.7 10/28/2013 HGB 13.4 10/28/2013 HCT 40.3 10/28/2013 MCV 97.2 10/28/2013 PLT 209 10/28/2013 GLUCOSE Date Value Range Status 10/28/2013 189* 65 - 99 mg/dL Final Testing performed at [facility], [address] [place] [address] BUN Date Value Range Status 10/28/2013 55* 8 - 25 mg/dL Final Testing performed at [address] [address] CREATININE Date Value Range Status 10/28/2013 8.10* 0.70 - 1.30 mg/dL Final Testing performed at [address] [address] BUN/CREAT Date Value Range Status 10/28/2013 7 Final Testing performed at [address] [address] TOTAL PROTEIN Date Value Range Status 10/27/2013 7.8 6.3 - 8.2 g/dL Final Testing performed at [facility];[address] [place] [address];[place] [address] GLOBULIN Date Value Range Status 10/27/2013 4.1 1.3 - 4.9 g/dL Final Testing performed at [facility];[address] [place] [address];[place] [address] TBIL Date Value Range Status 10/27/2013 0.7 0.1 - 1.5 mg/dL Final Testing performed at [facility];[address] [place] [address];[place] [address] ALT Date Value Range Status 10/27/2013 36 10 - 65 U/L Final Testing performed at [facility];[address] [place] [address];[place] [address] AST Date Value Range Status 10/27/2013 23 10 - 45 U/L Final Testing performed at [facility];[address] [place] [address];[place] [address] SODIUM Date Value Range Status 10/28/2013 130* 135 - 143 mmol/L Final Testing performed at [address] [address] POTASSIUM Date Value Range Status 10/28/2013 4.1 3.5 - 4.9 mmol/L Final Testing performed at [address] [address] CHLORIDE Date Value Range Status 10/28/2013 87* 99 - 109 mmol/L Final Testing performed at [address] [address] CO2 Date Value Range Status 10/28/2013 26 23 - 32 mmol/L Final Testing performed at [facility], [address] [place] [address] [facility] Date Value Range Status 10/28/2013 21* 5 - 20 mmol/L Final Testing performed at [facility], [address] [place] [address] Xr Chest Ap Portable 10/27/2013 ENRIQUE POTTER [...] Refills: 0 Commonly known as: DORYX ergocalciferol [address] UNITS capsule Refills: 0 Commonly known as: [...] 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 You may get these medications from any pharmacy. albuterol 1.25 MG/3ML nebulizer solution albuterol 108 (90 BASE) MCG/ACT inhaler fluticasone-salmeterol 250-50 MCG/DOSE montelukast 10 MG tablet predniSONE 20 MG tablet Activity: activity as tolerated Diet: renal diet Wound Care: not applicable There are no Patient Instructions on file for this visit. [facility] [address] [place] [address] In 1 week Signed: SOWMYA SHAIKH 10/28/2013 [...] | | 12 | 0 | | аннаjoni | | | | | | + [...] Case Management by VANDANA Olivia at 10/28/13 1611 Author: VANDANA Olivia Service: (none) Author Type: Meat Hostess Filed: 10/28/13 1613 Date of Service: 10/28/131610 Status: Signed Stockroom Inventory Clerk: VANDANA Olivia (Meat Hostess) Gas voucher provided to Pt's Spouse for transport back to [facility]. Sean Willis MD - 10/28/2013 8:09 AM PDTFormatting of this note might be different from the o riginal. Progress Notes by Sean Solorzano MD at 10/28/13 0809 Author: Sean Solorzano MD Service: Nephrology Author Type: Physician Filed: 10/28/13 1351 Date of Service: 10/28/13 08 Status: Signed Stockroom Inventory Clerk: Sean Solorzano MD (Physician) [facility] Service: NEPHROLOGY Progress Note Enrique Potter 48 y.o. [id number] male [facility] Hospital Day: LOS: 1 day SUBJECTIVE Patient [...] why he went to a hospital in [facility] where he was found to have a low positive troponin of 0.13 and also had acute shortness of breath and wheezing and that's why he was transferred to [facility] . Here in our ER, the patient [...] Saw h im. Patient gets hemodialysis in [facility] hemodialysis unit Saturday und er Dr. Timmons [...] W/ EGD; Surgeon: John Singleton MD; Location: [facility] ENDOSCOPY; Se rvice: Gastroenterology; Laterality: N/A; Av fistula placement 05/06/2012 Procedure: AV FISTULA; Surgeon: Oskar Meyer MD; Location: [facility] MAIN OR; Service: Vascul ar; Laterality: Left; Left arm possible right Unlisted procedure arthroscopy shoulder rt , ligaments Knee arthroscopy 07/07/2012 Procedure: KNEE - ARTHROSCOPY; Surgeon: Favio Raza MD; Location: [facility] MAIN OR; S ervice: Orthopedics; Laterality: Right; After 1530 Catheter removal 07/07/2012 Procedure: DIALYSIS CATHETER REMOVAL; Surgeon: Oskar Meyer MD; Location: [facility] BEDSIDE [place] OCEDURE; Service: General; Laterality: Right; perm cath Dialysis fistula creation 07/07/2012 Procedure: DIALYSIS CATHETER INSERTION; Surgeon: Oskar Meyer MD; Location: [facility] BEDSIDE PROCEDURE; Service: General; Laterality: Left; temporary dialysis catheter Av fistula repair 07/11/2012 Procedure: AV FISTULA GRAFT REPAIR/REVISION; Surgeon: Oskar Meyer MD; Location: [facility] OR; Service: Vascular; Laterality: Left; Superficialization of brachiobasilic fistula and right IJ perm cath insertion Dialysis fistula creation 07/11/2012 Procedure: DIALYSIS CATHETER INSERTION; Surgeon: Oskar Meyer MD; Location: [facility] MAIN OR; Service: Vascular; Laterality: Left; removed [...] KIDS. CURRENTLY UNEMPLOYED, BEFOR E WORKED AT [employer] IN [place] [employer]. Quit METHAMPHETAMINES PER PATIENT after t he [...] [COMPLETED] ipratropium ipratropium-albuterol 3 mL Nebulization Q4H ID levothyroxine 50 mcg Oral Daily omeprazole 40 mg Oral Daily predniSONE 50 mg Oral Daily with breakfast sevelamer 800 mg Oral TID sodium bicarbonate 1,300 mg Oral BID vitamin B kozmzzf-[id number]-cxywc acid 1 tablet Oral Daily Continuous Infusions [...] Results Component Value Date PTHINTACT 255* 04/02/2012 [id number] <12* 04/02/2012 Lab Results Component Value Date TSH 8.41* 09/11/2012 TSH 7.30* 07/06/2012 TSH 16.60* 04/03/2012 Lab Results Component Value Date URICACID 8.2 04/02/2012 Lab Results Component Value Date HGBA1C UNABLE TO CALCULATE 09/11/2012 HGBA1C 6.0 05/14/2012 HGBA1C 5.4 04/03/2012 IMAGING Xr Chest Ap Portable 10/27/2013 ENRIQUEDIANELYS POTTER 1965 48 years XR CHEST 1 [...] to diabetes and hypertensive nephrosclerosis Hemodialysis at [facility] hemodialysis unit under Dr. Timmons Saturday Using [...] Hb to keep it around 10 (using ANAYA and Fe as needed). Lab Results Component [...] in counseling and coordination of care. SEAN SOLORZANO MD 10/28/2013 Chela King, [facility] - 10/27/2013 5:15 PM PDT Progress Notes by Chela Varela RPH at 10/27/131714 Author: Chela Varela RPH Service: (none) Author Type: Pharmacist Filed: 10/27/131714 Date of Service: 10/27/131714 Status: Signed Stockroom Inventory Clerk: Chela Varela RPH (Pharmacist) Clinical Pharmacy Note - Renal Dose Adjustment Enrique Potter 48 y.o. male Ht Readings from Last 1 Encounters: 10/27/13 1.702 m (5' 7.01") Wt Readings from Last 1 Encounters: 10/27/13 72 kg (158 lb 11.7 oz) CREATININE Date Value Range Status 10/27/2013 7.41* 0.70 - 1.30 mg/dL Final Testing performed at [facility];[address] [place] [address];[place] [address] ESRD on HD Pharmacy to renally adjust medications per Dr. Mayberry Plan: No current medications require dose adjustment for HD at this time. Pharmacy will continue to follow and adjust as appropriate. Pharmacist: Chela Varela 10/27/2013 5:14 PM onversio n Transaction, Provider Unknown - 10/27/2013 4:24 PM PDTFormatting of this note might be di fferent from the original. Case Management by VANDANA Wu at 10/27/13 1624 Author: VANDANA Wu Service: (none) Author Type: Meat Hostess Filed: 10/27/131625 Date of Service: 10/27/131623 Status: Signed Stockroom Inventory Clerk: VANDANA Wu (Meat Hostess) 10/27/13 1621 Discharge Planning Evaluation Admitting Diagnosis Dyspnea Readmission Yes-within 14 days Living Arrangements Spouse/significant other;Family members Support Systems Spouse/significant other;Family members;Other (Comment) ([facility]) Type of Residence Private residence House [...] any diffic ulty walking. Patient's PCP is: [facility] Patient's insurance: Medicare / Medicaid Coverage concerns: None reported Medication coverage/concerns: None reported Community resources utilized / needed: Pt goes to Dialysis in [place] and gets there by [employer] transportation Assistance in transportation: [employer] / Family Identification of any specific education / training: TBD Barriers to Discharge / Alternative housing needed: Anticipated DCP: Home. Pt thought the plan was to stay overnight, get dialysis in the am, and then dc home. Pt's plans to arrive and stay the night at [facility]. Princess Michelle docume nted in this encounter H&P Notes Douglas Mayberry MD - 10/27/2013 3:38 PM PDTFormatting of this note might be different from mariela ramires. H&P by Douglas Mayberry MD at 10/27/13 1538 Author: Douglas Mayberry MD Service: (none) Author Type: Physician Filed: 10/27/13 1546 Date of Service: 10/27/13 1533 Status: Signed Stockroom Inventory Clerk: Douglas Mayberry MD (Physician) [facility] Service: Hospitalist Admission History & Physical Pt: Enrique Potter AGE/SEX: 48 y.o. male ROOM: 08/24 [facility] 1965 TODAY'S DATE: 10/27/2013 Date of Admission: 10/27/2013 Chief Complaint: SOB and transfer from [place]. History of Present Illness: *48-year-old male with past medical history of being on hemodialysis, hypertension, asthma, ex-smoker , who presented with acute onset shortness of breath that started yesterday at 63 0 p.m. That's why he went to a [place] where he was found to have a low posit home troponin of 0.13 and also had acute shortness of breath and wheezing and that's why he w as transferred to [facility]. Here in our ER, the patient was found to be tachycardic to 110 and also short of breath but repeat troponin was 0. Patient denies any chest pain, nausea, vomiting, diarrhea. He also denies any of cough or fever. He has been having significant wheezing seen yesterda y evening. He was recently treated with antibiotics 1 week back and felt better than. Only takes albut angelina as inhaler. Never been diagnosed with COPD as such. Ex-smoker, quit 7 years back for that almost 50 pack year smoking history. No alcohol. Live s at home more or less independent. Family history noncontributory to present illness. In the ER, patient received ceftriaxone and given nebs now feels slightly better. Review of Systems: A 10 point review of systems was negative except as mentioned in the HPI. 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 PSHx: Past Surgical History Procedure Date Colonoscopy with egd 05/01/2012 Procedure: COLONOSCOPY W/ EGD; Surgeon: John Singleton MD; Location: [facility]; Se rvice: Gastroenterology; Laterality: N/A; Av fistula placement 05/06/2012 Procedure: AV FISTULA; Surgeon: Oskar Meyer MD; Location: [facility] MA[facility] OR; Service: Vascul ar; Laterality: Left; Left arm possible right Unlisted procedure arthroscopy shoulder rt , ligaments Knee arthroscopy 07/07/2012 Procedure: KNEE - ARTHROSCOPY; Surgeon: Favio Raza MD; Location: [facility] OR; S ervice: Orthopedics; Laterality: Right; After 1530 Catheter removal 07/07/2012 Procedure: DIALYSIS CATHETER REMOVAL; Surgeon: Oskar Meyer MD; Location: [facility] [place] [place]; Service: General; Laterality: Right; perm cath Dialysis fistula creation 07/07/2012 Procedure: DIALYSIS CATHETER INSERTION; Surgeon: Oskar Meyer MD; Location: [facility] BED[facility] PROCEDURE; Service: General; Laterality: Left; temporary dialysis catheter Av fistula repair 07/11/2012 Procedure: AV FISTULA GRAFT REPAIR/REVISION; Surgeon: Oskar Meyer MD; Location: [facility]; Service: Vascular; Laterality: Left; Superficialization of brachiobasilic fistula and right IJ perm cath insertion Dialysis fistula creation 07/11/2012 Procedure: DIALYSIS CATHETER INSERTION; Surgeon: Oskar Meyer MD; Location: [facility]; Service: Vascular; Laterality: Left; removed dialysis catheter from left neck and placed new on in left chest, attempted in right neck but unable to place Prior To admission Meds: Prior to Admission medications Medication Sig Start Date End Date Taking? Authorizing Provider albuterol (PROVENTIL) (2.5 MG/3ML) 0.083% nebulizer solution Take 2.5 mg by nebulization ev keira 6 (six) hours as needed. Yes Historical Provider allopurinol (ZYLOPRIM) 300 MG tablet Take 300 mg by mouth daily. Yes Historical Provider ALPRAZolam (XANAX) 0.5 MG tablet Take 0.5 mg by mouth nightly as needed. Yes Historical P rovider b complex-vitamin c-folic acid (NEPHRO-THU) 0.8 MG TABS Take 1 tablet by mouth daily. Yes Historical Provider carvedilol (COREG) 3.125 MG tablet Take 3.125 mg by mouth 2 (two) times daily with meals. Yes Historical Provider Cholecalciferol 2000 UNITS TABS Take 1 tablet by mouth daily. Yes Historical Provider citalopram (CELEXA) 20 MG tablet Take 20 mg by mouth nightly. Yes Historical Provider cyclobenzaprine (FLEXERIL) 10 MG tablet Take 10 mg by mouth 3 (three) times daily as needed . Yes Historical Provider furosemide (LASIX) 20 MG tablet Take 20 mg by mouth daily. Yes Historical Provider HYDROcodone-acetaminophen (NORCO) 10-325 MG per tablet Take 1 tablet by mouth every 6 (six) hours as needed. 10/15/12 Yes Vikram Colbert MD levothyroxine (SYNTHROID, LEVOTHROID) 50 MCG tablet Take 50 mcg by mouth daily. Yes His torical Provider loperamide (IMODIUM) 2 MG capsule Take 2 mg by mouth 4 (four) times daily as needed. Ind ications: Diarrhea Yes Historical Provider omeprazole (PRILOSEC) 40 MG capsule Take 40 mg by mouth daily. Yes Historical Provider sevelamer (RENVELA) 800 MG tablet Take 800 mg by mouth 3 (three) times daily with meals. Yes Historical Provider sodium bicarbonate 650 MG tablet Take 1,300 mg by mouth 2 (two) times daily. Yes Histor ical Provider Allergies: Allergies Allergen Reactions Lisinopril Other (See Comments) "makes me sweat and knocked me out" Penicillins Other (See Comments) Unknown 10/08/12: Patient tolerated Ceftriaxone during previous admissions. Family Hx: Family History Problem Relation Age of Onset Heart disease Mother Heart disease Father Diabetes Father Cancer Father colon cancer Social Hx: History Social History Marital Status: Spouse Name: Shyanne Number of Children: N/A Years of Education: N/A Occupational History Not on file. 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 HAS NO BIOLOGICAL KIDS; 2 STEP KIDS. CURRENTLY UNEMPLOYED, BEFOR E WORKED AT [employer] IN [place] [employer]. Quit METHAMPHETAMINES PER PATIENT after t he ARF in mar 2012. FATHER HAS COLON CANCER, HEART DISEASE, MOTHER 15 YEARS AGO. NO FH KIDNEY PROBLEMS. History Smoking status Never Smoker Smokeless tobacco Never Used History Alcohol Use No Physical Exam: BP 109/74 | Pulse 98 | Temp 97.1 F (36.2 C) (Oral) | Resp 18 | SpO2 100% General Appearance: Alert, cooperative, mild distress, appears stated age Head: Normocephalic, without [...] curvature, ROM normal, no CVA tenderness Lungs: b/l diffuse wheezing. Chest Wall: No tenderness or deformity Heart: Regular rate and rhythm, S1 and S2 normal, no murmur, rub or gallop Abdomen: Soft, non-tender, bowel sounds active all four quadrants, no masses, no organomegaly Psychiatric: Alert and oriented x 3. Intact Judgement and insight Rectal: Deferred Extremities: Left UE fistula good bruit. Extremities normal, atraumatic, no cyanosis or e jay Pulses: 2+ and symmetric all extremities Skin: Skin color, texture, turgor normal, no rashes or lesions Lymph nodes: Cervical nodes normal Neurologic: CNII-XII intact, normal strength, sensation and reflexes throughout Data: CBC: Lab Results Component Value Date WBC 8.5 10/27/2013 RBC 4.23 10/27/2013 HGB 13.8 10/27/2013 HCT 41.1 10/27/2013 MCV 97.2 10/27/2013 MCH 32.5 10/27/2013 MCHC 33.5 10/27/2013 RDW 49.4 10/27/2013 PLT 235 10/27/2013 MPV 7.3 10/27/2013 DIFFTYPE AUTOMATED 10/27/2013 CMP: Lab Results Component Value Date NA 134* 10/27/2013 K 3.8 10/27/2013 CL 91* 10/27/2013 CO2 30 10/27/2013 ANIONGAP 17 10/27/2013 GLUF 146* 10/27/2013 BUN 33* 10/27/2013 CREATININE 7.41* 10/27/2013 BCR 4 10/27/2013 CA 8.9 10/27/2013 CA 6.1* 04/02/2012 PROT 7.8 10/27/2013 ALB 3.7 10/27/2013 GLOB 4.1 10/27/2013 BILITOT 0.7 10/27/2013 ALP 96 10/27/2013 AST 23 10/27/2013 ALT 36 10/27/2013 EGFR 8* 10/27/2013 Albumin: Lab Results Component Value Date ALB 3.7 10/27/2013 Magnesium: Lab Results Component Value Date MG 2.0 10/15/2012 Phosphorus: Lab Results Component Value Date PHOS 4.3 10/15/2012 PT/INR: Lab Results Component Value Date INR 0.9 10/27/2013 Troponin: Lab Results Component Value Date TROPONINI <0.02 10/10/2012 Last 3 Troponin: Lab Results Component Value Date TROPONINI <0.02 10/10/2012 TROPONINI <0.02 10/10/2012 TROPONINI <0.02 10/10/2012 TSH: Lab Results Component Value Date TSH 8.41* 09/11/2012 EKG: I personally reviewed the EKG. Findings: Sinus tachycardia, no acute ST-T wave changes . IMAGING: Xr Chest Ap Portable 10/27/2013 ENRIQUE ROMY 1965 48 years XR CHEST 1 VIEW 10/27/2013 1:37 PM INDICATION: Shortn ess of breath COMPARISON: 10/10/12 TECHNIQUE: Chest 1 view, AP view of the chest FINDINGS: The cardiomediastinal contours are normal. There is no pneumothorax or effusion. The denton gs are clear without focal consolidation. Osseous structures are grossly normal. 10/27/2013 1. No acute cardiopulmonary process. Problem List: Principal Problem: *Chronic obstructive asthma with exacerbation Active Problems: Hypothyroidism HTN (hypertension) ESRD (end stage renal disease) on dialysis Anemia of chronic kidney failure Gout PUD (peptic ulcer disease) SOB (shortness of breath) Assessment and Plan: #1 acute shortness of breath, asthma exacerbation: Possible underlying COPD, though never d iagnosed. We'll admit the patient to observation, most likely should improve by tomorrow morning. We' ll continue with azithromycin IV, prednisone starting at 50 mg and do nebs every 4 hours. Th e patient will benefit from fluticasone spray as an outpatient for chronic inhaled steroid t herapy as he does have at least moderate persistent asthma. Low suspicion for PE as patient has significant wheezing and improvement after nebs, so we'll hold off on workup in that ter ms. #2 had low positive troponin to 0.13 and negative over here. Most likely troponin is due to his hemodialysis and impaired excretion. No other signs and symptoms so hold workup and beau t terms too #3. ESRD on hemodialysis. Consulted Dr. Solorzano. He is due for HD tomorrow morning. #4. He does not have Diabetes So we'll take it out of his past medical history. Continue with other home medications. Patient's old records and labs that were available, were reviewed in detail and summarized as above. 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 Personal communication requested for any clarification. Code Status: Prior Primary Care Physician: [facility] Douglas Mayberry MD 10/27/2013 3:38 PM documented in this encou nter Consult Notes Sean Solorzano MD - 10/27/2013 3:47 PM PDTFormatting of this note might be different fro m the original. Consult* by Sean Solorzano MD at 10/27/13 4178 Author: Sean Solorzano MD Service: Nephrology Author Type: Physician Filed: 10/27/13 1647 Date of Service: 10/27/13 2152 Status: Signed Stockroom Inventory Clerk: Sean Solorzano MD (Physician) [facility] Service: NEPHROLOGY CONSULT Note Enrique Potter 48 y.o. [id number] 08/[birth year] male [facility] Hospital Day: LOS: 0 days Date of Admission: 10/27/2013 Requesting Physician: ED provider/ Hospitalist Reason for Admission: Chronic obstructive asthma with exacerbation History Obtained From: patient, family CHIEF COMPLAINT: Shortness of Breath HISTORY OF PRESENT ILLNESS 48-year-old male with past medical history of being on hemodialysis for ESRD , hypertension , asthma, ex-smoker , who presented with acute onset shortness of breath that started yester day at 630 p.m. That's why he went to a hospital in [facility] where he was found to have a low positive troponin of 0.13 and also had acute shortness of breath and wheezing and that's why he was transferred to [facility] . Here in our ER, the patient was found to be tachycardic to 110 and also short of breath but repeat troponin was 0. Patient denies any chest pain, nausea, vomiting, diarrhea. He also denies any of cough or fever. He has been having significant wheezing since yester day evening. He was recently treated with antibiotics [...] nebs now feels slightly better when Saw him. Patient gets hemodialysis in [facility] hemodialysis unit Saturday und er Dr. Timmons Nephrology consulted for evaluation and management of ESRD AND maintenance hemodialysis ONSET acute moderately severe, Associated with fluid electrolyte acid base imbalances Past Medical History Diagnosis Date Hyperlipidemia Hypertension [...] W/ EGD; Surgeon: John Singleton MD; Location: [facility]; Se rvice: Gastroenterology; Laterality: N/A; Av fistula placement 05/06/2012 Procedure: AV FISTULA; Surgeon: Oskar Meyer MD; Location: [facility] MA[facility] OR; Service: Vascul ar; Laterality: Left; Left arm possible right Unlisted procedure arthroscopy shoulder rt , ligaments Knee arthroscopy 07/07/2012 Procedure: KNEE - ARTHROSCOPY; Surgeon: Favio Raza MD; Location: [facility] OR; S ervice: Orthopedics; Laterality: Right; After 1530 Catheter removal 07/07/2012 Procedure: DIALYSIS CATHETER REMOVAL; Surgeon: Oskar Meyer MD; Location: [facility] [place]ED[place]IDE [place]URE; Service: General; Laterality: Right; perm cath Dialysis fistula creation 07/07/2012 Procedure: DIALYSIS CATHETER INSERTION; Surgeon: Oskar Meyer MD; Location: [facility] BEDSIDE PROCEDURE; Service: General; Laterality: Left; temporary dialysis catheter Av fistula repair 07/11/2012 Procedure: AV FISTULA GRAFT REPAIR/REVISION; Surgeon: Oskar Meyer MD; Location: [facility] OR; Service: Vascular; Laterality: Left; Superficialization of brachiobasilic fistula and right IJ perm cath insertion Dialysis fistula creation 07/11/2012 Procedure: DIALYSIS CATHETER INSERTION; Surgeon: Oskar Meyer MD; Location: [facility] OR; Service: Vascular; Laterality: Left; removed dialysis catheter from left neck and placed new on in left chest, attempted in right neck but unable to place (Not in a hospital admission) Allergies Allergen Reactions Lisinopril Other (See Comments) "makes me sweat and knocked me out" Penicillins Other (See Comments) Unknown 10/08/12: Patient tolerated Ceftriaxone during previous admissions. 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 OBJECTIVE Vital Signs: BP 109/74 | Pulse 98 | Temp 97.1 F (36.2 C) (Oral) | Resp 18 | SpO2 100% I&O Detailed Table: Weight change: Hemodynamics Last 24hrs: REVIEW OF SYSTEM: General: Denies fever, chills, sweats, anorexia, fatigue, weakness, malaise, weight loss, a nd sleep disorder. Cardiovascular: Denies peripheral edema, SOB, and chest pains. ENT: Denies sinus problems and oral thrush. Respiratory:C/O COUGH AND wheezing. GI: Denies nausea, vomiting, diarrhea, melena, and hematemesis. : Denies burning with urination, blood in urine, foamy urine, urinary frequency, urinary hesitancy, urinary urgency, nocturia, and incontinence. Musculoskeletal: Denies recent joint pain or swelling. Extremities: Denies edema in legs or feet. Derm: Denies rash, itching, purpura and ecchymosis. Neuro: Denies dizziness, lightheadedness, tremores and frequent headaches. Psych: Denies history of anxiety or depression. Denies any use of NSAIDs, Centeno 2 inhibitors, herbal medication, recent IV contrast. Rest of the ROS Unremarkable. Examination: General:not in acute distress. HEENT: Head normocephalic. Pupils are normal. Tongue pink. Throat clear. Neck: Supple. JVD not raised. No thyromegaly, no bruit. Chest: Clear to auscultation. Breasts: Both breasts no masses Heart: S1 and S2 without S3. Abdomen: Soft, bowel sound present, nontender. No bruit over the abdominal aorta and both femorals. Rectal/Pelvic examination: Deferred. Extremities: No edema feet. Peripheral pulses are normal. No cyanosis or clubbing. Neurologic: Nonfocal. Alert and oriented x3. Skin: no rash or purpura. LYMPH NODES; NOT PALPABLE HD ACCESS: Left upper extremity brachiocephalic fistula with good bruit LABS: Recent Results (from the past 48 hour(s)) ED ISTAT TROPONIN Component Value Range POC Troponin I 0.00 MD notified. EKG 12 LEAD UNIT PERFORMED Collection Time 10/27/13 12:57 PM Component Value Range Ventricular Rate 101 Atrial Rate 101 P-R Interval 186 QRS Duration 94 Q-T Interval 386 QTC Calculation (Bezet) 500 Calculated P [place] 64 Calculated R [place] -50 Calculated T [place] 67 Diagnosis Value: Sinus tachycardia Left axis deviation Abnormal ECG When compared with ECG of 10-OCT-2012 01:22, QRS axis Shifted left This ECG contains Unconfirmed Interpretation Statements. See ED Record for Physician In terpretation. Confirmed by MUSE READ ONLY, -COMPUTER ([id number]), production editor DOMINIC ARCE ([id number]) on 10/27/2013 1:37 :14 PM FinelineC CARD PANEL W/O TRP (ED ONLY) Collection Time 10/27/13 12:59 PM Component Value Range WBC 8.5 3.8 - 11.0 K/uL RBC 4.23 4.20 - 5.70 M/uL HGB 13.8 13.2 - 17.0 g/dL HCT 41.1 39.0 - 50.0 % MCV 97.2 80.0 - 100.0 fl MCH 32.5 27.0 - 34.0 pg MCHC 33.5 32.0 - 35.5 g/dL RDW SD 49.4 37 - 53 fl PLT 235 150 - 400 K/uL MPV 7.3 DIFF TYPE AUTOMATED NEUTROPHILS 90.4 LYMPHOCYTES 6.9 MONOCYTES 1.1 EOSINOPHILS 1.5 BASOPHILS 0.1 NEUTROPHILS ABS 7.7 (*) 1.9 - 7.4 K/uL LYMPHOCYTES ABS 0.6 (*) 1.0 - 3.9 K/uL MONOCYTES ABS 0.1 0 - 0.8 K/uL EOSINOPHILS ABS 0.1 0 - 0.5 K/uL BASOPHILS ABS 0.0 0 - 0.1 K/uL Platelet Estimate ADEQUATE Diff Comment SLIDE SCANNED, AGREES WITH AUTOMATED RESULTS. MORPHOLOGY RBC AND PLT MORPHOLOGY APPEAR NORMAL SODIUM 134 (*) 135 - 143 mmol/L POTASSIUM 3.8 3.5 - 4.9 mmol/L CHLORIDE 91 (*) 99 - 109 mmol/L CO2 30 23 - 32 mmol/L ANION GAP AGAP 17 5 - 20 mmol/L GLUCOSE 146 (*) 65 - 99 mg/dL BUN 33 (*) 8 - 25 mg/dL CREATININE 7.41 (*) 0.70 - 1.30 mg/dL BUN/CREAT 4 CALCIUM 8.9 8.5 - 10.2 mg/dL TOTAL PROTEIN 7.8 6.3 - 8.2 g/dL Albumin 3.7 3.6 - 5.0 g/dL GLOBULIN 4.1 1.3 - 4.9 g/dL A/G 0.9 (*) 1.0 - 2.4 TBIL 0.7 0.1 - 1.5 mg/dL ALK PHOS 96 35 - 115 U/L AST 23 10 - 45 U/L ALT 36 10 - 65 U/L EGFR 8 (*) >60 mL/min/1.73m2 CPK 105 55 - 400 U/L INR 0.9 APTT 24 23 - 32 seconds MMB 4.2 (*) 0.5 - 3.6 ng/mL CK-MB Index 4.0 BRAIN NATRIURETIC PEPTIDE Collection Time 10/27/13 12:59 PM Component Value Range BRAIN NATRIURETIC PEPTIDE 26.2 0 - 100 pg/mL ] Lab Results Component Value Date FERRITIN 933* 09/10/2012 LABIRON 35 09/10/2012 No results found for this basename: labprot IMAGING: Xr Chest Ap Portable 10/27/2013 ENRIQUE ROMY 1965 48 years XR CHEST 1 VIEW 10/27/2013 1:37 PM INDICATION: Shortn ess of breath COMPARISON: 10/10/12 TECHNIQUE: Chest 1 view, AP view of the chest FINDINGS: The cardiomediastinal contours are normal. There is no pneumothorax or effusion. The denton gs are clear without focal consolidation. Osseous structures are grossly normal. 10/27/2013 1. No acute cardiopulmonary process. Patient's old records and labs were reviewed in detail and summarized. PROBLEM LIST Patient Active Problem List Diagnosis Date Noted SOB (shortness of breath) 10/27/2013 Chronic obstructive asthma with exacerbation 10/27/2013 Malnutrition of moderate degree 10/10/2012 PUD (peptic ulcer disease) 10/03/2012 Gout 07/06/2012 Anemia of chronic kidney failure 05/24/2012 HTN (hypertension) 04/30/2012 ESRD (end stage renal disease) on dialysis 04/30/2012 Diabetes mellitus with ESRD (end-stage renal disease) 04/14/2012 Obesity (BMI 30-39.9) 04/14/2012 Class: Chronic Hypoalbuminemia 04/11/2012 Hypothyroidism 04/07/2012 Vitamin d deficiency 04/03/2012 Secondary hyperparathyroidism (of renal origin) 04/03/2012 ASSESSMENT & PLAN Principal Problem: *Chronic obstructive asthma with exacerbation Active Problems: Hypothyroidism HTN (hypertension) ESRD (end stage renal disease) on dialysis Anemia of chronic kidney failure Gout PUD (peptic ulcer disease) SOB (shortness of breath) ESRD: ON HD Secondary to diabetes and hypertensive nephrosclerosis Hemodialysis at [facility] hemodialysis unit under Dr. Timmons Saturday Using left upper arm AV fistula Is and Os DAILY LABS Lab Results Component Value Date BUN 33* 10/27/2013 BUN 28* 12/15/2012 BUN 22* 11/18/2012 CREATININE 7.41* 10/27/2013 CREATININE 5.3* 12/15/2012 CREATININE 3.2* 11/18/2012 EGFR 8* 10/27/2013 EGFR 12.0 12/15/2012 EGFR 20.0 11/18/2012 Lab Results Component Value Date K 3.8 10/27/2013 K 5.1 12/15/2012 K 5.7* 11/18/2012 . CHRONIC LONG STANDING HYPERTENSION EF between 40 - 45 %. BP is reasonably controlled with current medications and dietary salt restriction. BP Readings from Last 3 Encounters: 10/27/13 109/74 01/08/13 136/84 12/16/12 100/54 Anemia of chronic renal disease Iron work up shows Adequate iron stores. I would monitor Hb to keep it around 10 (using ANAYA and Fe as needed). Lab Results Component Value Date HGB 13.8 10/27/2013 HGB 11.3* 12/15/2012 HGB 8.7* 11/18/2012 FERRITIN 933* 09/10/2012 FERRITIN 245.0 04/28/2012 FERRITIN 139 04/02/2012 LABIRON 35 09/10/2012 LABIRON 20 04/28/2012 LABIRON 38 04/02/2012 CHRONIC LONG STANDING DIABETES MELLITUS TYPE II Lab Results Component Value Date GLUF 146* 10/27/2013 GLUF 123* 12/15/2012 GLUF 75 11/18/2012 HGBA1C UNABLE TO CALCULATE 09/11/2012 HGBA1C 6.0 05/14/2012 HGBA1C 5.4 04/03/2012 ACUTE BRONCHITIS PER HOSPITALIST I thank Dr MAYBERRY for giving me the opportunity to take part in the care of this patient wi th multiple complex medical problems Time spend over 70 minutes of time spent evaluating the patient, reviewing the data, formu lating a plan and discussion with patient and hospitalist team, more than half of the time spent in counseling and coordination of care. SEAN SOLORZANO MD 10/27/2013 documente d in this encounter ED Notes Jesus Laws MD - 10/27/2013 1:03 PM PDTFormatting of this note might be different fr om the original. ED Provider Notes by Jesus Laws MD at 10/27/13 1303 Author: Jesus Laws MD Service: (none) Author Type: Physician Filed: 10/28/13 0034 Date of Service: 10/27/13 0943 Status: Signed Stockroom Inventory Clerk: Jesus Laws MD (Physician) [facility] Department of Emergency Medicine Provider Name: Nikky Caraballo Raheem'priscilla Pertinent History and Concerns: Dialysis pt - SOB, 93%, tachypneic, trop .13 - previous nor mal but is dialysis pt, ekg no ischemic changes. Given prednisone, ceftriaxone, azithro. L ast dialysis yesterday. (10/27/13 0958 : JONATHAN LEONARD) 1:04 PM History of Present Illness Patient Identification Enrique Potter is a 48 y.o. male. Patient information was obtained from patient. History/Exam limitations: none. Patient presented to the Emergency Department by: Ambulance Chief Complaint Chief Complaint Patient presents with Shortness of Breath Pt reports SOB started last night around 1830. Pt Hx of asthma, states nebs and puffer di d not help. Pt reports going to [facility] this AM. The patient presents to ED with complaints of shortness of breath. Onset of symptoms was 6: 30 PM last night, with a continuous course since that time. The symptoms are described to be of moderate severity. Pt reports he goes to dialysis with Dr. Bowen and it affects him ther e with the yellow trees. Pt reports he is supposed to go for dialysis tomorrow from -3. Pt reports he has been on dialysis for 2 years. Pt reports he was drinking and had a hip proble m. No worsening or alleviating factors reported. The patient also complains of "feeling tire d", cough, wheezing. Patient denies other symptoms at this time. Patient reports the breathi ng treatment he is currently receiving is helping a little bit. PCP: [facility] Past Medical History Diagnosis Date Hyperlipidemia Hypertension [...] W/ EGD; Surgeon: John Singleton MD; Location: [facility]; Se rvice: Gastroenterology; Laterality: N/A; Av fistula placement 05/06/2012 Procedure: AV FISTULA; Surgeon: Oskar Meyer MD; Location: [facility] OR; Service: Vascul ar; Laterality: Left; Left arm possible right Unlisted procedure arthroscopy shoulder rt , ligaments Knee arthroscopy 07/07/2012 Procedure: KNEE - ARTHROSCOPY; Surgeon: Favio Raza MD; Location: [facility] OR; S ervice: Orthopedics; Laterality: Right; After 1530 Catheter removal 07/07/2012 Procedure: DIALYSIS CATHETER REMOVAL; Surgeon: Oskar Meyer MD; Location: [facility] [place] [place]; Service: General; Laterality: Right; perm cath Dialysis fistula creation 07/07/2012 Procedure: DIALYSIS CATHETER INSERTION; Surgeon: Oskar Meyer MD; Location: [facility] BED[facility] PROCEDURE; Service: General; Laterality: Left; temporary dialysis catheter Av fistula repair 07/11/2012 Procedure: AV FISTULA GRAFT REPAIR/REVISION; Surgeon: Oskar Meyer MD; Location: [facility] OR; Service: Vascular; Laterality: Left; Superficialization of brachiobasilic fistula and right IJ perm cath insertion Dialysis fistula creation 07/11/2012 Procedure: DIALYSIS CATHETER INSERTION; Surgeon: Oskar Meyer MD; Location: [facility] OR; Service: Vascular; Laterality: Left; removed dialysis catheter from left neck and placed new on in left chest, attempted in right neck but unable to place Prior to Admission medications Medication Sig Start Date End Date Taking? Authorizing Provider albuterol (PROVENTIL) (2.5 MG/3ML) 0.083% nebulizer solution Take 2.5 mg by nebulization ev keira 6 (six) hours as needed. Yes Historical Provider allopurinol (ZYLOPRIM) 300 MG tablet Take 300 mg by mouth daily. Yes Historical Provider ALPRAZolam (XANAX) 0.5 MG tablet Take 0.5 mg by mouth nightly as needed. Yes Historical P rovider b complex-vitamin c-folic acid (NEPHRO-THU) 0.8 MG TABS Take 1 tablet by mouth daily. Yes Historical Provider carvedilol (COREG) 3.125 MG tablet Take 3.125 mg by mouth 2 (two) times daily with meals. Yes Historical Provider Cholecalciferol 2000 UNITS TABS Take 1 tablet by mouth daily. Yes Historical Provider citalopram (CELEXA) 20 MG tablet Take 20 mg by mouth nightly. Yes Historical Provider cyclobenzaprine (FLEXERIL) 10 MG tablet Take 10 mg by mouth 3 (three) times daily as needed . Yes Historical Provider furosemide (LASIX) 20 MG tablet Take 20 mg by mouth daily. Yes Historical Provider HYDROcodone-acetaminophen (NORCO) 10-325 MG per tablet Take 1 tablet by mouth every 6 (six) hours as needed. 10/15/12 Yes Vikram Colbert MD levothyroxine (SYNTHROID, LEVOTHROID) 50 MCG tablet Take 50 mcg by mouth daily. Yes His torical Provider loperamide (IMODIUM) 2 MG capsule Take 2 mg by mouth 4 (four) times daily as needed. Ind ications: Diarrhea Yes Historical Provider omeprazole (PRILOSEC) 40 MG capsule Take 40 mg by mouth daily. Yes Historical Provider sevelamer (RENVELA) 800 MG tablet Take 800 mg by mouth 3 (three) times daily with meals. Yes Historical Provider sodium bicarbonate 650 MG tablet Take 1,300 [...] KIDS. CURRENTLY UNEMPLOYED, BEFOR E WORKED AT [employer] IN [place] [employer]. Quit METHAMPHETAMINES PER PATIENT after t he ARF in mar 2012. FATHER HAS COLON CANCER, HEART DISEASE, MOTHER 15 YEARS AGO. NO FH KIDNEY PROBLEMS. Family History Problem Relation Age of Onset Heart disease Mother Heart disease Father Diabetes Father Cancer Father colon cancer Review of Systems Constitutional: Negative for fever, chills Positive for "feeling tired" Eyes: Negative for vision changes Nose: Negative for congestion, nosebleeds Throat: Negative for sore throat CV/Resp: Negative for chest pain Positive for cough, shortness of breath, wheezing GI: Negative for abdominal pain, nausea, vomiting, or diarrhea : Negative for urinary problems Musculoskeletal: Negative for back pain, joint pain Skin: Negative for rash Neuro/Psych: Negative for headache Endo/heme/Lymph: Negative for swollen lymph nodes, easy bruising All other systems reviewed and negative except as noted. Physical Exam BP 114/70 | Pulse 101 | Temp 97.1 F (36.2 C) (Oral) | Resp 22 | SpO2 99% Vital signs interpretation: Tachycardic, tachypneic, otherwise within normal limits Pulse Oximetry interpretation: Normal General: Alert, in moderate respiratory distress Eyes: Normal inspection, pupils equal and round, non-icteric ENT: Ears normal Nose normal Pharynx normal Neck: Normal inspection Supple Cardiovascular: Rate and rhythm normal No murmurs Respiratory: Wheezing in all lung velasco No rales or rhonchi Abdomen: Soft, non-tender, non-distended No guarding or rebound Back: Normal inspection Skin: Color normal Warm and dry No rash Extremities: Functioning fistula Neuro: Alert, no AMS No gross motor/sensory deficits Medical Decision Making and Emergency Department Course ED Department Course 48 y.o. male patient presents to ED with complaints of complaints of shortness of breath, w heezing, cough, "feeling tired." On exam the patient is in moderate respiratory distress, johnson s wheezing in all lung velasco, and a functioning fistula. My DDx includes, but is not limite d to: pneumonia, bronchitis, fluid overload secondary to end stage renal disease. Will order Troponin, EKG, Chest X-ray, BNP, Cardiac panel, 2.5 mg/3 mL nebulizer solution Proventil, a nd 0.02% Atrovent nebulizer solution, and reevaluate the patient. 1:18 PM. Troponin here resulted 0.00. 2:10 PM. Labs reviewed. Glucose 146. BUN 33. Creatinine 7.41. 2:52 PM. Chest X-ray reviewed. No acute process. No pneumonia. 2:53 PM. Patient was brought in for elevated Troponin. Patient recheck. Patient reports he has had a productive cough with green/barrientos sputum production. Patient reports he is feeling better at this time. Patient reports his blood pressure is normally around 110/86. 3:00 PM. Will admit pt at this time and place a call out to the hospitalist. 3:10 PM. Discussed patient's case with Dr. Mayberry (Hospitalist) who agrees to see the patient. 3:[address] Mayberry in the ED to see the patient. Admission Upon review of the patient s history, physical and the results of studies I believe that the patient warrants admission to the hospital for further evaluation and treatment. I have spoken with the patient regarding the need for admission to the hospital, and the patient h as expressed understanding of this. I will call and arrange for admission at this time. Filed Vitals: 10/27/13 1257 10/27/13 1349 10/27/13 1356 10/27/13 1538 BP: 99/60 109/74 Pulse: 101 103 103 98 Temp: TempSrc: Resp: 22 20 16 18 SpO2: 99% 100% 100% 100% Records Reviewed Old medical records. Nursing notes. Medication Given ED Medication Administration from 10/27/2013 1240 to 10/27/2013 1654 Date/Time Order Dose Route Action Action by 10/27/2013 1257 albuterol (PROVENTIL) (2.5 MG/3ML) 0.083% nebulizer solution 10 mg Given Shanelle Garza, [employer]ICE [employer] SAL[employer]ERSON 10/27/2013 1257 ipratropium (ATROVENT) 0.02 % nebulizer solution 0.5 mg Given Shanelle glover, SERVICE PROMOTER SALESPERSON 10/27/2013 1546 cefTRIAXone (ROCEPHIN) IVPB 1 g 0 g Intravenous Stopped Akua Grubbs RN 10/27/2013 1520 cefTRIAXone (ROCEPHIN) IVPB 1 g 1 g Intravenous New Leta Haque RN 10/27/2013 1557 azithromycin (ZITHROMAX) 500 mg in dextrose 5 % 250 mL IVPB 500 mg Intrav enous New Bag Zoltan Nuñez RN Laboratory Evaluation Results Procedure Component Value Ref Range Date/Time Cardiac Panel [[id number]] (Abnormal) Collected:10/27/13 1259 Order Status:Completed Updated:10/27/13 1406 WBC 8.5 3.8 - 11.0 K/uL RBC 4.23 4.20 - 5.70 M/uL HGB 13.8 13.2 - 17.0 g/dL HCT 41.1 39.0 - 50.0 % MCV 97.2 80.0 - 100.0 fl MCH 32.5 27.0 - 34.0 pg MCHC 33.5 32.0 - 35.5 g/dL RDW SD 49.4 37 - 53 fl PLT 235 150 - 400 K/uL MPV 7.3 fl DIFF TYPE AUTOMATED NEUTROPHILS 90.4 % LYMPHOCYTES 6.9 % MONOCYTES 1.1 % EOSINOPHILS 1.5 % BASOPHILS 0.1 % NEUTROPHILS ABS 7.7 (H) 1.9 - 7.4 K/uL LYMPHOCYTES ABS 0.6 (L) 1.0 - 3.9 K/uL MONOCYTES ABS 0.1 0 - 0.8 K/uL EOSINOPHILS ABS 0.1 0 - 0.5 K/uL BASOPHILS ABS 0.0 0 - 0.1 K/uL Platelet Estimate ADEQUATE Diff Comment Result: SLIDE SCANNED, AGREES WITH AUTOMATED RESULTS. MORPHOLOGY RBC AND PLT MORPHOLOGY APPEAR NORMAL SODIUM 134 (L) 135 - 143 mmol/L POTASSIUM 3.8 3.5 - 4.9 mmol/L CHLORIDE 91 (L) 99 - 109 mmol/L CO2 30 23 - 32 mmol/L ANION GAP AGAP 17 5 - 20 mmol/L GLUCOSE 146 (H) 65 - 99 mg/dL BUN 33 (H) 8 - 25 mg/dL CREATININE 7.41 (H) 0.70 - 1.30 mg/dL BUN/CREAT 4 CALCIUM 8.9 8.5 - 10.2 mg/dL TOTAL PROTEIN 7.8 6.3 - 8.2 g/dL Albumin 3.7 3.6 - 5.0 g/dL GLOBULIN 4.1 1.3 - 4.9 g/dL A/G 0.9 (L) 1.0 - 2.4 TBIL 0.7 0.1 - 1.5 mg/dL ALK PHOS 96 35 - 115 U/L AST 23 10 - 45 U/L ALT 36 10 - 65 U/L EGFR 8 (L) >60 mL/min/1.73m2 CPK 105 55 - 400 U/L INR 0.9 APTT 24 23 - 32 seconds MMB 4.2 (H) 0.5 - 3.6 ng/mL CK-MB Index 4.0 BNP [[id number]] Collected:10/27/13 1259 Order Status:Completed Updated:10/27/13 1351 Specimen Information:Blood BRAIN NATRIURETIC PEPTIDE 26.2 0 - 100 pg/mL I personally reviewed the lab results and they have been posted to the chart. Pertinent po sitive and negative findings have been addressed appropriately. Radiology and EKG Evaluation 1257 Sinus tachycardia with leftward axis. Viewed and interpreted by me: Jesus Laws MD Imaging Results XR Chest AP portable (Final result) Result time:10/27/13 151 Final result by Rad Results In [place] (10/27/13 15:15:59) Impression: 1. No acute cardiopulmonary process. Narrative: ENRIQUE POTTER 1965 48 years XR CHEST 1 VIEW 10/27/2013 1:37 PM INDICATION: Shortness of breath COMPARISON: 10/10/12 TECHNIQUE: Chest 1 view, AP view of the chest FINDINGS: The cardiomediastinal contours are normal. There is no pneumothorax or effusion . The lungs are clear without focal consolidation. Osseous structures are grossly normal. ED Interpretation Documented by Jesus Laws MD (10/27/13 9032, [facility] Emergency Department, Emergency Medicine) No acute process. No chf no pneumonia. ED Diagnoses Final diagnoses End stage renal disease Elevated troponin Acute bronchitis Disposition: ED Disposition Admit/Observation Bed request special needs: Dialysis Diagnosis?: acute bronchitis, ESRD, Elevated troponin Follow-up Information None Discharge Medications: New Prescriptions No new medications Additional Documentation Procedures Attending Note: Documentation assistance provided by Angelic Calderon (Scribe). Information recorded by the scribe has been reviewed and validated by me. I ag ree with its contents. MD Jesus Bui MD 10/28/13 0034 onversio n Transaction, Provider Unknown - 10/27/2013 12:50 PM PDTFormatting of this note might be di fferent from the original. ED Notes by Anthony Haque RN at 10/27/13 5531 Author: Anthony Haque RN Service: (none) Author Type: Registered Nurse Filed: 10/27/13 1412 Date of Service: 10/27/13 6377 Status: Signed Stockroom Inventory Clerk: Anthony Haque RN (Registered Nurse) RT in room for Pt eval Anthony Haque RN 10/27/13 5393 onver quique Transaction, Provider Unknown - 10/27/2013 12:45 PM PDT ED Notes by Anthony Haque RN at 10/27/13 2777 Author: Anthony Haque RN Service: (none) Author Type: Registered Nurse Filed: 10/27/13 6156 Date of Service: 10/27/131244 Status: Signed Stockroom Inventory Clerk: Anthony Haque RN (Registered Nurse) RT called for Evaluation and Tx. Anthony Haque RN 10/27/13 8999 docume nted in this encounter Plan of [...] | ECG 12 LEAD | Routin | 10/27/2013 | | Results for this | | | e | 12:57 PM | | procedure are in the [...] | | | | | [place] [id number] | | | | + + + + + + | Non- | 4.14 (L)Comment: Testing | 4.20 - 5.70 | EXTERNAL | | | Red Blood | performed at [facility], [address] | M/uL | LAB | | | Cells | [address], | | | | | Counted | [place] [id number] | | | | + + + + + + | Hemoglobin | 13.4Comment: Testing | 13.2 - 17.0 | EXTERNAL | | | | performed at [facility], [address] | g/dL | LAB | | | | [address], | | | | | | [place] [id number] | | | | + + + + + + | Hematocrit, | 40.3Comment: Testing | 39.0 - 50.0 % | EXTERNAL | | | POC | performed at [facility], [address] | | LAB | | | | [address], | | | | | | [place] [address] | | | | + + + + + + | MCV | 97.2Comment: Testing | 80.0 - 100.0 fl | EXTERNAL | | | | performed at [facility], [address] | | LAB | | | | [address], | | | | | | [place] [address] | | | | + + + + + + | MCH | 32.4Comment: Testing | 27.0 - 34.0 pg | EXTERNAL | | | | performed at [facility], [address] | | LAB | | | | [address], | | | | | | [place] [address] | | | | + + + + + + | MCHC | 33.3Comment: Testing | 32.0 - 35.5 | EXTERNAL | | | | performed at [facility], [address] | g/dL | LAB | | | | [address], | | | | | | [place] [address] | | | | + + + + + + | RDW-CV | 49.0Comment: Testing | 37 - 53 fl | EXTERNAL | | | | performed at [facility], [address] | | LAB | | | | [address], | | | | | | [place] [address] | | | | + + + + + + | Platelet | 209Comment: Testing | 150 - 400 K/uL | EXTERNAL | | | Count | performed at [facility], [address] | | LAB | | | Plasma | [address], | | | | | | [place] [address] | | | | + + + + + + | MPV | 7.7Comment: Testing | fl | EXTERNAL | | | | performed at [facility], [address] | | LAB | | | | [address], | | | | | | [place] [address] | | | | + + + + + + | Differentia | AUTOMATEDComment: SLIDE | | EXTERNAL | | | l Type | SCANNED, AGREES WITH | | LAB | | | | AUTOMATED | | | | | | RESULTS.Testing | | | | | | performed at [facility], [address] | | | | | | [address], | | | | | | [place] [address] | | | | + + + + + + | % Segmented | 88.3Comment: Testing | % | EXTERNAL | | | | performed at [facility], [address] | | LAB | | | Neutrophils | [address], | | | | | | [place] [address] | | | | + + + + + + | % | 9.7Comment: Testing | % | EXTERNAL | | | Lymphocytes | performed at [facility], [address] | | LAB | | | | [address], | | | | | | [place] [address] | | | | + + + + + + | % Monocytes | 1.8Comment: Testing | % | EXTERNAL | | | | performed at [facility], [address] | | LAB | | | | [address], | | | | | | [place] [address] | | | | + + + + + + | % | 0.1Comment: Testing | % | EXTERNAL | | | Eosinophils | performed at [facility], [address] | | LAB | | | | [address], | | | | | | [place] [address] | | | | + + + + + + | % Basophils | 0.1Comment: Testing | % | EXTERNAL | | | | performed at [facility], [address] | | LAB | | | | [address], | | | | | | [place] [address] | | | | + + + + + + | Absolute | 6.8Comment: Testing | 1.9 - 7.4 K/uL | EXTERNAL | | | Segmented | performed at [facility], [address] | | LAB | | | Neutrophils | [address], | | | | | | [place] [address] | | | | + + + + + + | Absolute | 0.7 (L)Comment: Testing | 1.0 - 3.9 K/uL | EXTERNAL | | | Lymphocytes | performed at [facility], [address] | | LAB | | | | [address], | | | | | | [place] [address] | | | | + + + + + + | Absolute | 0.1Comment: Testing | 0 - 0.8 K/uL | EXTERNAL | | | Monocytes | performed at [facility], [address] | | LAB | | | | [address], | | | | | | [place] [address] | | | | + + + + + + | Absolute | 0.0Comment: Testing | 0 - 0.5 K/uL | EXTERNAL | | | Eosinophils | performed at [facility], [address] | | LAB | | | | [address], | | | | | | [place] [address] | | | | + + + + + + | Absolute | 0.0Comment: Testing | 0 - 0.1 K/uL | EXTERNAL | | | Basophils | performed at [facility], [address] | | LAB | | | | [address], | | | | | | [place] [address] | | | | + + + [...] | | | | | [place] [address] | | | | + + + [...] EXTERNAL | | | | performed at [facility], [address] | | LAB | | | | [address], | | | | | | [place] [address] | | | | + + + [...] | | | | | [place] [address] | | | | + + + + + + | K | 4.1Comment: Testing | 3.5 - 4.9 | EXTERNAL | | | | performed at [facility], [address] | mmol/L | LAB | | | | [address], | | | | | | [place] [address] | | | | + + + + + + | Cl | 87 (L)Comment: Testing | 99 - 109 mmol/L | EXTERNAL | | | | performed at [facility], [address] | | LAB | | | | [address], | | | | | | [place] [address] | | | | + + + + + + | CO2 | 26Comment: Testing | 23 - 32 mmol/L | EXTERNAL | | | | performed at [facility], [address] | | LAB | | | | [address], | | | | | | [place] [address] | | | | + + + + + + | Anion Gap | 21 (H)Comment: Testing | 5 - 20 mmol/L | EXTERNAL | | | | performed at [facility], [address] | | LAB | | | | [address], | | | | | | [place] [address] | | | | + + + + + + | Glucose, | 189 (H)Comment: Testing | 65 - 99 mg/dL | EXTERNAL | | | Fasting | performed at [facility], [address] | | LAB | | | | [address], | | | | | | [place] [address] | | | | + + + + + + | BUN | 55 (H)Comment: Testing | 8 - 25 mg/dL | EXTERNAL | | | | performed at [facility], [address] | | LAB | | | | [address], | | | | | | [place] [address] | | | | + + + + + + | Creatinine | 8.10 (H)Comment: Testing | 0.70 - 1.30 | EXTERNAL | | | | performed at [facility], [address] | mg/dL | LAB | | | | [address], | | | | | | [place] [address] | | | | + + + + + + | BUN/Creatin | 7Comment: Testing | | EXTERNAL | | | ine Ratio | performed at [facility], [address] | | LAB | | | | [address], | | | | | | [place] [address] | | | | + + + + + + | Calcium | 9.7Comment: Testing | 8.5 - 10.2 | EXTERNAL | | | | performed at [facility], [address] | mg/dL | LAB | | | | [address], | | | | | | [place] [address] | | | | + + + [...] | | | | | [place] [address] | | | | + + + [...] Khalif Palm Conversion - 02/06/2019 10:59 AM MARIO POTTER yearsXR CHEST 1 | | VIEW10/27/2013 1:37 [...] EXTERNAL | | | | performed at [facility];[address] | | LAB | | | | [address];[place] | | | | | | [address] | | | | + + + + + -+ | Non- | 4.23Comment: Testing | 4.20 - 5.70 | EXTERNAL | | | Red Blood | performed at [facility];[address] | M/uL | LAB | | | Cells | [address];[place] | | | | | Counted | [address] | | | | + + + + + -+ | Hemoglobin | 13.8Comment: Testing | 13.2 - 17.0 | EXTERNAL | | | | performed at [facility];[address] | g/dL | LAB | | | | [address];[place] | | | | | | [address] | | | | + + + + + -+ | Hematocrit, | 41.1Comment: Testing | 39.0 - 50.0 % | EXTERNAL | | | POC | performed at [facility];[address] | | LAB | | | | [address];[place] | | | | | | [address] | | | | + + + + + -+ | MCV | 97.2Comment: Testing | 80.0 - 100.0 fl | EXTERNAL | | | | performed at [facility];[address] | | LAB | | | | [address];[place] | | | | | | [address] | | | | + + + + + -+ | MCH | 32.5Comment: Testing | 27.0 - 34.0 pg | EXTERNAL | | | | performed at [facility];[address] | | LAB | | | | [address];[place] | | | | | | [address] | | | | + + + + + -+ | MCHC | 33.5Comment: Testing | 32.0 - 35.5 | EXTERNAL | | | | performed at [facility];[address] | g/dL | LAB | | | | [address];[place] | | | | | | [address] | | | | + + + + + -+ | RDW-CV | 49.4Comment: Testing | 37 - 53 fl | EXTERNAL | | | | performed at [facility];[address] | | LAB | | | | [address];[place] | | | | | | [address] | | | | + + + + + -+ | Platelet | 235Comment: Testing | 150 - 400 K/uL | EXTERNAL | | | Count | performed at [facility];[address] | | LAB | | | Plasma | [address];[place] | | | | | | [address] | | | | + + + + + -+ | MPV | 7.3Comment: Testing | fl | EXTERNAL | | | | performed at [facility];[address] | | LAB | | | | [address];[place] | | | | | | [address] | | | | + + + + + -+ | Differentia | AUTOMATEDComment: | | EXTERNAL | | | l Type | Testing performed at | | LAB | | | | [facility];[address];[place] [address] | | | | + + + + + -+ | % Segmented | 90.4Comment: Testing | % | EXTERNAL | | | | performed at [facility];[address] | | LAB | | | Neutrophils | [address];[place] | | | | | | [address] | | | | + + + + + -+ | % | 6.9Comment: Testing | % | EXTERNAL | | | Lymphocytes | performed at [facility];[address] | | LAB | | | | [address];[place] | | | | | | [address] | | | | + + + + + -+ | % Monocytes | 1.1Comment: Testing | % | EXTERNAL | | | | performed at [facility];[address] | | LAB | | | | [address];[place] | | | | | | [address] | | | | + + + + + -+ | % | 1.5Comment: Testing | % | EXTERNAL | | | Eosinophils | performed at [facility];[address] | | LAB | | | | [address];[place] | | | | | | [address] | | | | + + + + + -+ | % Basophils | 0.1Comment: Testing | % | EXTERNAL | | | | performed at [facility];[address] | | LAB | | | | [address];[place] | | | | | | [address] | | | | + + + + + -+ | Absolute | 7.7 (H)Comment: Testing | 1.9 - 7.4 K/uL | EXTERNAL | | | Segmented | performed at [facility];[address] | | LAB | | | Neutrophils | [address];[place] | | | | | | [address] | | | | + + + + + -+ | Absolute | 0.6 (L)Comment: Testing | 1.0 - 3.9 K/uL | EXTERNAL | | | Lymphocytes | performed at [facility];[address] | | LAB | | | | [address];[place] | | | | | | [address] | | | | + + + + + -+ | Absolute | 0.1Comment: Testing | 0 - 0.8 K/uL | EXTERNAL | | | Monocytes | performed at [facility];[address] | | LAB | | | | [address];[place] | | | | | | [address] | | | | + + + + + -+ | Absolute | 0.1Comment: Testing | 0 - 0.5 K/uL | EXTERNAL | | | Eosinophils | performed at [facility];[address] | | LAB | | | | [address];[place] | | | | | | [address] | | | | + + + + + -+ | Absolute | 0.0Comment: Testing | 0 - 0.1 K/uL | EXTERNAL | | | Basophils | performed at [facility];[address] | | LAB | | | | [address];[place] | | | | | | [address] | | | | + + + + + -+ | Platelet | ADEQUATEComment: Testing | | EXTERNAL | | | Estimate | performed at [facility];[address] | | LAB | | | | [address];[place] | | | | | | [address] | | | | + + + + + -+ | Differentia | SLIDE SCANNED, AGREES | | EXTERNAL | | | l Comments | WITH AUTOMATED | | LAB | | | | RESULTS.Comment: Testing | | | | | | performed at [facility];[address] | | | | | | [address];[place] | | | | | | [address] | | | | + + + + + -+ | RBC | RBC AND PLT MORPHOLOGY | | EXTERNAL | | | Morphology | APPEAR NORMALComment: | | LAB | | | | Testing performed at | | | | | | [facility];[address];[place] [address] | | | | + + + + + -+ | Na | 134 (L)Comment: Testing | 135 - 143 | EXTERNAL | | | | performed at [facility];[address] | mmol/L | LAB | | | | [address];[place] | | | | | | [address] | | | | + + + + + -+ | K | 3.8Comment: Testing | 3.5 - 4.9 | EXTERNAL | | | | performed at [facility];[address] | mmol/L | LAB | | | | [address];[place] | | | | | | [address] | | | | + + + + + -+ | Cl | 91 (L)Comment: Testing | 99 - 109 mmol/L | EXTERNAL | | | | performed at [facility];[address] | | LAB | | | | [address];[place] | | | | | | [address] | | | | + + + + + -+ | CO2 | 30Comment: Testing | 23 - 32 mmol/L | EXTERNAL | | | | performed at [facility];[address] | | LAB | | | | [address];[place] | | | | | | [address] | | | | + + + + + -+ | Anion Gap | 17Comment: Testing | 5 - 20 mmol/L | EXTERNAL | | | | performed at [facility];[address] | | LAB | | | | [address];[place] | | | | | | [address] | | | | + + + + + -+ | Glucose, | 146 (H)Comment: Testing | 65 - 99 mg/dL | EXTERNAL | | | Fasting | performed at [facility];[address] | | LAB | | | | [address];[place] | | | | | | [address] | | | | + + + + + -+ | BUN | 33 (H)Comment: Testing | 8 - 25 mg/dL | EXTERNAL | | | | performed at [facility];[address] | | LAB | | | | [address];[place] | | | | | | [address] | | | | + + + + + -+ | Creatinine | 7.41 (H)Comment: Testing | 0.70 - 1.30 | EXTERNAL | | | | performed at [facility];[address] | mg/dL | LAB | | | | [address];[place] | | | | | | [address] | | | | + + + + + -+ | BUN/Creatin | 4Comment: Testing | | EXTERNAL | | | ine Ratio | performed at [facility];[address] | | LAB | | | | [address];[place] | | | | | | [address] | | | | + + + + + -+ | Calcium | 8.9Comment: Testing | 8.5 - 10.2 | EXTERNAL | | | | performed at [facility];[address] | mg/dL | LAB | | | | [address];[place] | | | | | | [address] | | | | + + + + + -+ | Protein, | 7.8Comment: Testing | 6.3 - 8.2 g/dL | EXTERNAL | | | Total | performed at [facility];[address] | | LAB | | | | [address];[place] | | | | | | [address] | | | | + + + + + -+ | Albumin | 3.7Comment: Testing | 3.6 - 5.0 g/dL | EXTERNAL | | | | performed at [facility];[address] | | LAB | | | | [address];[place] | | | | | | [address] | | | | + + + + + -+ | Globulin | 4.1Comment: Testing | 1.3 - 4.9 g/dL | EXTERNAL | | | | performed at [facility];[address] | | LAB | | | | [address];[place] | | | | | | [address] | | | | + + + + + -+ | A/G Ratio | 0.9 (L)Comment: Testing | 1.0 - 2.4 | EXTERNAL | | | | performed at [facility];[address] | | LAB | | | | [address];[place] | | | | | | [address] | | | | + + + + + -+ | Bilirubin | 0.7Comment: Testing | 0.1 - 1.5 mg/dL | EXTERNAL | | | Total | performed at [facility];[address] | | LAB | | | | [address];[place] | | | | | | [address] | | | | + + + + + -+ | ALP, | 96Comment: Testing | 35 - 115 U/L | EXTERNAL | | | External | performed at [facility];[address] | | LAB | | | | [address];[place] | | | | | | [address] | | | | + + + + + -+ | AST | 23Comment: Testing | 10 - 45 U/L | EXTERNAL | | | | performed at [facility];[address] | | LAB | | | | [address];[place] | | | | | | [address] | | | | + + + + + -+ | ALT | 36Comment: Testing | 10 - 65 U/L | EXTERNAL | | | | performed at [facility];[address] | | LAB | | | | [address];[place] | | | | | | [address] | | | | + + + [...] | | | | | | at [facility];[address] | | | | [address];[place] [address] | | | | + + + + + -+ | CK, Total | 105Comment: Testing | 55 - 400 U/L | EXTERNAL | | | | performed at [facility];[address] | | LAB | | | | [address];[place] | | | | | | [address] | | | | + + + [...] | | | | | performed at [facility];[address] | | | | | | [address];[place] | | | | | | [address] | | | | + + + + + -+ | aPTT, | 24Comment: Testing | 23 - 32 seconds | EXTERNAL | | | Patient | performed at [facility];[address] | | LAB | | | | [address];[place] | | | | | | [address] | | | | + + + + + -+ | CK-MB | 4.2 (H)Comment: Testing | 0.5 - 3.6 ng/mL | EXTERNAL | | | | performed at [facility];[address] | | LAB | | | | [address];[place] | | | | | | [address] | | | | + + + [...] EXTERNAL | | | | performed at [facility];[address] | | LAB | | | | [address];[place] | | | | | | [address] | | | | + + + [...] + +---------+ + + ECG 12 lead (10/27/2013 12:57 PM PDT) + + + + + + | Component | Value | Ref Range | Performed | Pathologist | | | | | At | Signature | + + + + + + | DIAGNOSIS: | Sinus tachycardiaLeft | | EXTERNAL | | | | axis deviationAbnormal | | LAB | | | | ECGWhen compared with | | | | | | ECG of 10-OCT-2012 | | | | | | 01:22,QRS axis Shifted | | | | | | leftThis ECG contains | | | | | [...] (500), | | | | | | production editor DOMINIC ARCE | | | | | | (4) on 10/27/2013 1:37:14 | | | | | | PM | | | | + + + + + + + + | Specimen | + + | | + + + + + | Narrative | Performed At | + + + | Historically converted procedure from [facility] Epic environment | EXTERNAL LAB | + [...] (end-stage renal disease) (HCC) 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
--- OUTSIDE RECORDS SUMMARY | ~2020-03-11 | XMS | Encounter Summary ---
Demographics + + + | Address | [address] | | | [place] [address] | + + + | Home Phone | | + + + | Preferred Language | Unknown | + + + | Marital Status | Single | + + + | Yarsanism Affiliation | Unknown | + + + | Race | or | + + + | Ethnic Group | Not or | + + + Author + + + | Author | [facility] | + + + | Organization | [facility] [employer] [facility] | + + + | Address | [...] Team Providers + +------+ + | Care Intellectual Property Counsel Name | Role | Phone | + +------+ + | Berenice Hicks | PCP | | + +------+ + Reason for Visit + +--------+ + | Reason | Onset | Comments | | | Date | | + +--------+ + | Phone communication | 12/14/ | | | | 2020 | | + +--------+ + Encounter Details +--------+ + + + + | Date | Type | Department | Care Team | Description | +--------+ + + + + | 12/14/ | Telephone | Clinical | Makenna Sheldon, | Phone communication | | 2020 | | Transplant Services | RN [address] | | | | | [address] | [address] | | | | | [place], | [place], [place] | | | | | [place] [address] | [phone] | | | | | [phone] | | | +--------+ + + + + Social History + + + +--------+ + | Tobacco Use | Types | Packs/Day | Years | Date | | | | | Used | | + + + +--------+ + | Former Smoker | Cigarettes | 1 | 23 | Quit: 04/28/2011 | + + + +--------+ + + +---+---+---+ | Smokeless Tobacco: | | | | | Never Used | | | | + +---+---+---+ + + + | Sex Assigned at | Date Recorded | | | | + + + | Not on file | | + + + + + + + | COVID-19 Exposure | Response | Date Recorded | + + + + | In the last month, have you been in contact | No / Unsure | 12/16/2019 1:10 PM | | with someone who was confirmed or | | PDT | | suspected to have Coronavirus / COVID-19? | | | + + + + documented as of this encounter Plan of Treatment +--------+ + + + [...] | 2019 | | | [address] | | | | | | [address] | | | | | | [place], [place] | | | | | | [address] | | | | | | [phone] | | | | | | | | +--------+ + + + + | 03/22/ | Appointment | Cardiology | | | | 2019 | | | | | +--------+ + + + + | 03/22/ | Appointment | Radiology | Taiwo Marin | | | 2019 | | | MD [address] | | | | | | [address] | | | | | | [place], [place] | | | | | | [address] | | | | | | [phone] | | | | | | | | +--------+ + + + + | 03/23/ | Appointment | Radiology | Taiwo Marin | | | 2019 | | | MD [address] | | | | | | [address] | | | | | | [place], [place] | | | | | | [address] | | | | | | [phone] | | | | | | | | +--------+ + + + + | 03/23/ | Office | Social Work | Meryl Rodriguezissa, | | | 2019 | Visit | | TRANSPORTATION MODELER [address] | | | | | | [address] | | | | | | [place], [place] | | | | | | [address] | | | | | | [phone] | | +--------+ + + + + | 03/24/ | Telephone-S | Nutrition | Debby Salvador, | | | 2019 | cheduled | | [address] | | | | | | [address] | | | | | | [place], [place] | | | | | | [address] | | | | | | [phone] | | | | | | | | +--------+ + + + + documented as of this encounter Visit Diagnoses Not on filedocumented in this encounter"
--- OUTSIDE RECORDS SUMMARY | ~2020-03-11 | XMS | Encounter Summary ---
Demographics + + + | Address | [address] | | | [place] [address] | + + + | Home Phone | | + + + | Preferred Language | Unknown | + + + | Marital Status | Unknown | + + + | Buddhism Affiliation | [id number] | + + + | Race | or | + + + | Ethnic Group | Not or | + + + Author + + + | Author | [facility] | | | and [place] | + + + | Organization | [facility] | | [...] Team Providers + +------+ + | Care Supervisor Fertilizer Processing Name | Role | Phone | + +------+ + | Andry Deng DO | PCP | | + +------+ + Encounter Details +--------+ + + + + | Date | Type | Department | Care Team | Description | +--------+ + + + + | 05/26/ | Orders Only | [facility] | Conversion | | | 2013 | | INFECTIOUS DISEASE | Transaction, | | | | | [address] | Provider Unknown | | | | | [place], [place] | | | | | | [address] | (Fax) | | | | | [phone] | | | +--------+ + + + [...] | CBC WITH MANUAL | Routin | 05/26/2014 | | Results for this | | DIFFERENTIAL | e | 12:00 AM | | procedure are in the | | | | PST | | results section. | + +--------+ + + + | SEDIMENTATION RATE, | Routin | 05/26/2014 | | Results for this | | AUTOMATED | e | 12:00 AM | | procedure are in the | | | | PST | | results section. | + +--------+ + + + | C-REACTIVE PROTEIN | Routin | 05/26/2014 | | Results for this | | | e | 12:00 AM | | procedure are in the | | | | PST | | results section. | + +--------+ + + + documented in this encounter Results Sedimentation rate, automated (05/26/2014 12:00 AM PST) + +-------+ + + + | Component | Value | Ref Range | Performed | Pathologist | | | | | At | Signature | + +-------+ + + + | Sed Rate | 7 | | EXTERNAL | | | | [...] +---------+ + + CBC with Manual Differential (05/26/2014 12:00 AM PST) + +-------+ + + + | Component | Value | Ref Range | Performed | Pathologist | | | | | At | Signature | + +-------+ + + + | WBC | 9.6 | 10 | EXTERNAL | | | | | | LAB | | + +-------+ + + + | Non- | 4.27 | 10 | EXTERNAL | | | Red Blood | | | LAB | | | Cells | | | | | | Counted | | | | | + +-------+ + + + | Hemoglobin | 13.0 | g/dL | EXTERNAL | | | | | | LAB | | + +-------+ + + + | Hematocrit, | 39.1 | % | EXTERNAL | | | POC | | | LAB | | + +-------+ + + + | MCV | 91.4 | fL | EXTERNAL | | | [...] +-------+ + + + | RDW-CV | 17.1 | % | EXTERNAL | | | | | | LAB | | + +-------+ + + + | Platelet | 239 | K/ L | EXTERNAL | | | Count | | | LAB | | | Plasma | | | | | + +-------+ + + + | MPV | | fL | EXTERNAL | | | | | | LAB | | + +-------+ + + + | % Segmented | 73.5 | % | EXTERNAL | | | | | | LAB | | | Neutrophils | | | | | + +-------+ + + + | % | 11.8 | % | EXTERNAL | | | Lymphocytes | | | LAB | | + +-------+ + + + | % Monocytes | 6.1 | % | EXTERNAL | | | | | | LAB | | + +-------+ + + + | % | 7.3 | % | EXTERNAL | | | Eosinophils | | | LAB | | + +-------+ + + + | % Basophils | 1.3 | % | EXTERNAL | | | [...] | + +---------+ + + C-Reactive Protein (05/26/2014 12:00 AM PST) + + + + [...]
--- OUTSIDE RECORDS SUMMARY | ~2020-03-11 | XMS | Encounter Summary ---
Demographics + + + | Address | [address] | | | [place] [address] | + + + | Home Phone | | + + + | Preferred Language | Unknown | + + + | Marital Status | Unknown | + + + | Buddhist Affiliation | 1076 | + + + | Race | or | + + + | Ethnic Group | Not or | + + + Author + + + | Author | [facility] | | | and [place] | + + + | Organization | [facility] | | [...] Providers + +------+ + | Care Supervisor Graphite Name | Role | Phone | + +------+ + PCP | Unavailable | + +------+ + Encounter Details +--------+ + + + + | Date | Type | Department | Care Team | Description | +--------+ + + + + | 12/01/ | Hospital | [facility] | Conversion | ESRD (end stage | | 2014 | Encounter | CENTER CV [facility]TRA OP | Transaction, | renal disease) (HCC) | | | | [address] | Provider Unknown | | | | | [place], [place] | [phone] | | | | | [address] | | | | | | [phone] | Juan Timmons MD | | | | | | [address] | | | | | | [address] [place], [place] | | | | | | [address] | | | | | | | [...] 2 puffs inhaled | | 0 | // | | | HFA) 90 mcg/puff | [...] documented as of this encounter Progress Notes Melvi Tate MD - 12/01/2013 11:20 AM PDTFormatting of this note might be diff erent from the original. Progress Notes by Melvi Tate MD at 12/01/13 1120 Author: Melvi Tate MD Service: Interventional Radiology Author Type: Phys ician Filed: 12/01/13 1156 Date of Service: 12/01/131119 Status: Addendum Axle Bearing Polisher: Melvi Tate MD (Physician) Related Notes: Original Note by Elana Mittal RN (Registered Nurse) filed at 12/01/13 11 21 Critical lab result given to Dr Tate. No new orders DARRELL Peña discussed with Dr. Timmons. Patient to dialysis immediately after procedur e. documente d in this encounter H&P Notes Matteo Pruitt NP - 12/01/2013 10:17 AM PDT H&P by DARRELL Lopez at 12/01/13 1017 Author: DARRELL Lopez Service: Interventional Radiology Author Type: Advanced R egistered Nurse Practitioner Filed: 12/01/13 1422 Date of Service: 12/01/13 1017 Status: Addendum Axle Bearing Polisher: DARRELL Lopez (Advanced Registered Nurse Practitioner) Related Notes: Original Note by Melvi Tate MD (Physician) filed at 12/01/13 1132 [facility] Service: Interventional Radiology Pre-Procedure History & Physical DIAGNOSIS: ESRD on dialysis INDICATION: Decreased function to tunneled dialysis catheter PROCEDURE: Tunneled dialysis catheter replacement History Obtained From: patient HISTORY OF PRESENT ILLNESS The patient is a 48 y.o. male with significant past medical history of ESRD on dialysis who presents with decreased function to tunneled dialysis catheter. The patient had tunneled d ialysis catheter placed on 11/09/13 here at [facility] by Dr. Sawyer due to clotted left upper ar m AV graft. The patient states he reported to dialysis yesterday for his treatment and they were unable to perform dialysis due to the catheter not functioning. He states they were tea ble to aspirate or flush the catheter. He was referred here for catheter replacement and emily l go to dialysis today after the catheter is replaced. REVIEW OF SYSTEMS Review of Systems Constitutional: Negative for fever and chills. HENT: Negative for sore throat, trouble swallowing, neck pain, neck stiffness and voice diane nge. Respiratory: Negative for cough, chest tightness, shortness of breath and wheezing. Cardiovascular: Negative for chest pain and leg swelling. Gastrointestinal: Negative for nausea, vomiting, abdominal pain, diarrhea and abdominal dis tention. Genitourinary: Negative for hematuria and decreased urine volume. Musculoskeletal: Negative for back pain and gait problem. Neurological: Negative for seizures, syncope and speech difficulty. Past Medical History Diagnosis Date Hyperlipidemia Hypertension [...] W/ EGD; Surgeon: John Singleton MD; Location: [facility] ENDOSCOPY; Se rvice: Gastroenterology; Laterality: N/A; Av fistula placement 05/06/2012 Procedure: AV FISTULA; Surgeon: Oskar Meyer MD; Location: [facility] MAIN OR; Service: Vascul ar; Laterality: Left; Left arm possible right Unlisted procedure arthroscopy shoulder rt , ligaments Knee arthroscopy 07/07/2012 Procedure: KNEE - ARTHROSCOPY; Surgeon: Favio Raza MD; Location: [facility] MAIN OR; ervice: Orthopedics; Laterality: Right; After 1530 Catheter removal 07/07/2012 Procedure: DIALYSIS CATHETER REMOVAL; Surgeon: Oskar Meyer MD; Location: [facility] BEDSIDE NM OCEDURE; Service: General; Laterality: Right; perm cath Dialysis fistula creation 07/07/2012 Procedure: DIALYSIS CATHETER INSERTION; Surgeon: Oskar Meyer MD; Location: [facility] BEDSIDE PROCEDURE; Service: General; Laterality: Left; temporary dialysis catheter Av fistula repair 07/11/2012 Procedure: AV FISTULA GRAFT REPAIR/REVISION; Surgeon: Oskar Meyer MD; Location: [facility] OR; Service: Vascular; Laterality: Left; Superficialization of brachiobasilic fistula and right IJ perm cath insertion Dialysis fistula creation 07/11/2012 Procedure: DIALYSIS CATHETER INSERTION; Surgeon: Oskar Meyer MD; Location: [facility] MAIN OR; Service: Vascular; Laterality: Left; [...] Prior to Encounter Medication Sig Dispense Refill albuterol (ACCUNEB) 1.25 MG/3ML nebulizer solution Take [...] tablet by mouth nightly. 30 tablet 0 omeprazole (PRILOSEC) 40 MG capsule Take 40 mg by mouth daily. predniSONE (DELTASONE) 20 MG tablet Take 20 mg by mouth daily with breakfast. 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 Constitutional: He is oriented to person, place, and time. No distress. HENT: Head: Normocephalic and atraumatic. Mouth/Throat: Oropharynx is clear and moist. No oropharyngeal exudate. Eyes: EOM are normal. Pupils are equal, round, and reactive to light. Neck: Normal range of motion. Neck supple. Cardiovascular: Normal rate, regular rhythm, normal heart sounds and intact distal pulses. No murmur heard. Pulmonary/Chest: Effort normal and breath sounds normal. No respiratory distress. He has no wheezes. He has no rales. He exhibits no tenderness. Tunneled dialysis catheter to right upper chest, site intact Abdominal: Soft. He exhibits no distension. There is no tenderness. Musculoskeletal: Normal range of motion. He exhibits no edema. Left upper arm AV fistula, +pulse noted distally Neurological: He is alert and oriented to person, place, and time. Skin: Skin is warm and dry. He is not diaphoretic. No pallor. Psychiatric: He has a normal mood and affect. His behavior is normal. PROBLEM LIST Patient Active Problem List Diagnosis [...] all questions were answered to their satisfaction. 3. I discussed laboratory findings with Dr. Timmons, the patient's lye treater. The patient is scheduled for dialysis today and Dr. Timmons recommends the patient be discharged to have di alysis as an outpatient. Dr. Tate is also aware of the lab results and agrees with Dr. Timmons. Moderate Sedation Presedation Assessment completed. ASA Classification: ASA 3: Patient with a severe systemic disease Mallampati Classification: II: Visibility of hard and soft palate, upper portion of tonsil s and uvula Primary Care Physician: [facility] DARRELL LOPEZ 12/01/2013 documented in th is encounter Miscellaneous Notes Op Note - Melvi Tate MD - 12/01/2013 11:56 AM PDTFormatting of this note kel ht be different from the original. Brief Op Note by Melvi Tate MD at 12/01/13 1156 Author: Melvi Tate MD Service: (none) Author Type: Physician Filed: 12/01/13 1154 Date of Service: 12/01/13 1156 Status: Signed Axle Bearing Polisher: Melvi Tate MD (Physician) [facility] Service: Interventional Radiology Brief Op Note Pre-operative Diagnosis: ESRD, Non functioning dialysis catheter Post-operative Diagnosis: Same Procedure(s): Tunneled catheter replacement Surgeon: Pelon Tate MD Anesthesia: Moderate sedation Estimated Blood Loss: Less Than 50 ml Other: Not applicable Indications: See pre-operative history and physical. Findings: Right IJ dialysis catheter accessed. The catheter was exchanged over the wire for a new 23cm [place]-Path catheter. Flushes and aspirates well. Flushed with heplock. Ready to use. Complications: None Condition: Stable See dictated operative report for full details. Pelon Tate MD 12/01/2013 documente d in this encounter Plan of Treatment Not on filedocumented as of this encounter Procedures + +--------+ + + + | Procedure Name | Priori | Date/Time | Associated Diagnosis | Comments | | | ty | | | | + +--------+ + + + | IR REPLACEMENT | Routin | 12/01/2013 | | Results for this | | TUNNELED CATH SAME | e | 12:01 PM | | procedure are in the | | ACCESS | | PDT | | results section. | + +--------+ + + + | EXTERNAL LAB: CBC | Routin | 12/01/2013 | | Results for this | | | e | 10:40 AM | | procedure are in the | | | | PDT | | results section. | + +--------+ + + + | MRSA NAAT | Timed | 12/01/2013 | | Results for this | | | | 10:40 AM | | procedure are in the | | | | PDT | | results section. | + +--------+ + + + | PROTIME INR | Routin | 12/01/2013 | | Results for this | | | e | 10:40 AM | | procedure are in the | | | | PDT | | results section. | + +--------+ + + + | BASIC METABOLIC | Routin | 12/01/2013 | | Results for this | | PANEL | e | 10:40 AM | | procedure are in the | | | | PDT | | results section. | + +--------+ + + + documented in this encounter Results IR Replacement Tunneled Cath (12/01/2013 12:01 PM PDT) + + | Specimen | + + | | + + + + + | Impressions | Performed At | + + + | Successful replacement of tunneled dialysis catheter with | | | fluoroscopic documentation as discussed above. Procedure performed | | | by Dr. Tate, david for allowing participation in the care of | | | this patient. | | + + + + + + | Narrative | Performed At | + + + | Tunneled dialysis catheter exchange: Indications: End-stage | | | renal disease, malfunctioning dialysis catheter. Procedure: | | | Replacement of tunneled dialysis catheter under fluoroscopy guidance. | | | Medications: Cleocin 600 mg IV, Versed 0.5 mg IV, Fentanyl 25 | | | mcg IV. Fluoroscopy time: 0.9 minutes. Radiation dose: 6 mGy. | | | Consent: The procedure was discussed with the patient and his | | | family and after discussing the risks, benefits and benefits of the | | | procedure, an informed consent was obtained. All the questions | | | answered to satisfaction. Patient was placed supine on the | | | angiography table and conscious sedation was administered by the | | | nursing staff, appropriate physiological monitoring including vital | | | signs, oxygen saturation and EKG was performed throughout the | | | procedure for timeframe of 20 minutes. The right neck and chest | | | were prepped and draped in usual fashion. Procedure: The skin and | | | subcutaneous tissue was infiltrated with 1% lidocaine. The cuff of | | | the existing catheter was from the surrounding tissues and | | | the catheter was removed intact without incident. A superstiff | | | Glidewire was introduced through this catheter and access was | | | secured. The catheter was removed and a new 23 cm Bard [place]-Path | | | catheter was introduced over the wire. The wire was positioned at the | | | cavoatrial junction. The catheter aspirates and flushes adequately. | | | Catheter was packed with thousand units of heparin per cc. | | | Fluoroscopy examination and radiographic documentation of final | | | catheter placement was performed. The catheter was secured in | | | place using skin sutures with 2-0 Prolene. Sterile dressing applied | | | per protocol. | | + + + + + | Procedure Note | + + | Khalif Palm - 02/06/2019 10:59 AM PDT Tunneled dialysis catheter exchange: | | Indications:End-stage renal disease, malfunctioning dialysis catheter. | | Procedure:Replacement of tunneled dialysis catheter under fluoroscopy guidance. | | Medications:Cleocin 600 mg IV,Versed 0.5 mg IV,Fentanyl 25 mcg IV. Fluoroscopy time: 0.9 | | minutes. Radiation dose: 6 mGy. Consent:The procedure was discussed with the patient | | and his family and after discussing the risks, benefits and benefits of the procedure, | | an informed consent was obtained. All the questions answered to satisfaction. Patient | | was placed supine on the angiography table and conscious sedation was administered by | | the nursing staff, appropriate physiological monitoring including vital signs, oxygen | | saturation and EKG was performed throughout the procedure for timeframe of 20 minutes. | | The right neck and chest were prepped and draped in usual fashion. Procedure:The skin | | and subcutaneous tissue was infiltrated with 1% lidocaine. The cuff of the existing | | catheter was from the surrounding tissues and the catheter was removed intact | | without incident. A superstiff Glidewire was introduced through this catheter and access | | was secured. The catheter was removed and a new 23 cm Bard [place]-Path catheter was | | introduced over the wire. The wire was positioned at the cavoatrial junction. The | | catheter aspirates and flushes adequately. Catheter was packed with thousand units of | | heparin per cc. Fluoroscopy examination and radiographic documentation of final catheter | | placement was performed. The catheter was secured in place using skin sutures with 2-0 | | Prolene. Sterile dressing applied per protocol. IMPRESSION: Successful replacement of | | tunneled dialysis catheter with fluoroscopic documentation as discussed above. Procedure | | performed by Dr. Tate, thanks for allowing participation in the care of this | | patient. | | | |The right neck and chest were prepped and draped in usual fashion. | | | |Procedure: | |The skin and subcutaneous tissue was infiltrated with 1% lidocaine. The cuff of the existin g catheter was from the surrounding tissues and the catheter was removed intact wi thout incident. A superstiff Glidewire was introduced through this | |catheter and access was secured. The catheter was removed and a new 23 cm Bard [place]-Path c atheter was introduced over the wire. The wire was positioned at the cavoatrial junction. Th e catheter aspirates and flushes | |adequately. Catheter was packed with | |thousand units of heparin per cc. Fluoroscopy examination and radiographic documentation of final catheter placement was performed. | | | |The catheter was secured in place using skin sutures with 2-0 Prolene. Sterile dressing álvaro lied per protocol. | | | |IMPRESSION: | |Successful replacement of tunneled dialysis catheter with fluoroscopic documentation as dis cussed above. | | | |Procedure performed by Dr. Tate, thanks for allowing participation in the care of this patient. | | | | | + + Protime INR (12/01/2013 10:40 AM PDT) + + + + + [...] | | | | | performed at [facility] | | | | | | [facility], [place] | | | | | | [address] | | | | + + + [...] + +---------+ + + External Lab: CBC (12/01/2013 10:40 AM PDT) + + + + + + | Component | Value | Ref Range | Performed | Pathologist | | | | | At | Signature | + + + + + + | WBC | 6.9Comment: Testing | 3.8 - 11.0 K/uL | EXTERNAL | | | | performed at [facility];[address] | | LAB | | | | [address];[place] | | | | | | [address] | | | | + + + + + + | Non- | 3.82 (L)Comment: Testing | 4.20 - 5.70 | EXTERNAL | | | Red Blood | performed at [facility];[address] | M/uL | LAB | | | Cells | [address];[place] | | | | | Counted | [address] | | | | + + + + + + | Hemoglobin | 12.5 (L)Comment: Testing | 13.2 - 17.0 | EXTERNAL | | | | performed at [facility];[address] | g/dL | LAB | | | | [address];[place] | | | | | | [address] | | | | + + + + + + | Hematocrit, | 36.7 (L)Comment: Testing | 39.0 - 50.0 % | EXTERNAL | | | POC | performed at [facility];[address] | | LAB | | | | [address];[place] | | | | | | [address] | | | | + + + + + + | MCV | 96.0Comment: Testing | 80.0 - 100.0 fl | EXTERNAL | | | | performed at [facility];[address] | | LAB | | | | [address];[place] | | | | | | [address] | | | | + + + + + + | MCH | 32.8Comment: Testing | 27.0 - 34.0 pg | EXTERNAL | | | | performed at [facility];[address] | | LAB | | | | [address];[place] | | | | | | [address] | | | | + + + + + + | MCHC | 34.2Comment: Testing | 32.0 - 35.5 | EXTERNAL | | | | performed at [facility];[address] | g/dL | LAB | | | | [address];[place] | | | | | | [address] | | | | + + + + + + | RDW-CV | 51.6Comment: Testing | 37 - 53 fl | EXTERNAL | | | | performed at [facility];[address] | | LAB | | | | [address];[place] | | | | | | [address] | | | | + + + + + + | Platelet | 188Comment: Testing | 150 - 400 K/uL | EXTERNAL | | | Count | performed at [facility];[address] | | LAB | | | Plasma | [address];[place] | | | | | | [address] | | | | + + + + + + | MPV | 6.6Comment: Testing | fl | EXTERNAL | | | | performed at [facility];[address] | | LAB | | | | [address];[place] | | | | | | [address] | | | | + + + + + + | Differentia | AUTOMATEDComment: | | EXTERNAL | | | l Type | Testing performed at | | LAB | | | | [facility];[address];[place] [address] | | | | + + + + + + | % Segmented | 71.6Comment: Testing | % | EXTERNAL | | | | performed at [facility];[address] | | LAB | | | Neutrophils | [address];[place] | | | | | | [address] | | | | + + + + + + | % | 12.4Comment: Testing | % | EXTERNAL | | | Lymphocytes | performed at [facility];[address] | | LAB | | | | [address];[place] | | | | | | [address] | | | | + + + + + + | % Monocytes | 11.0Comment: Testing | % | EXTERNAL | | | | performed at [facility];[address] | | LAB | | | | [address];[place] | | | | | | [address] | | | | + + + + + + | % | 4.6Comment: Testing | % | EXTERNAL | | | Eosinophils | performed at [facility];[address] | | LAB | | | | [address];[place] | | | | | | [address] | | | | + + + + + + | % Basophils | 0.4Comment: Testing | % | EXTERNAL | | | | performed at [facility];[address] | | LAB | | | | [address];[place] | | | | | | [address] | | | | + + + + + + | Absolute | 4.9Comment: Testing | 1.9 - 7.4 K/uL | EXTERNAL | | | Segmented | performed at [facility];[address] | | LAB | | | Neutrophils | [address];[place] | | | | | | [address] | | | | + + + + + + | Absolute | 0.9 (L)Comment: Testing | 1.0 - 3.9 K/uL | EXTERNAL | | | Lymphocytes | performed at [facility];[address] | | LAB | | | | [address];[place] | | | | | | [address] | | | | + + + + + + | Absolute | 0.8Comment: Testing | 0 - 0.8 K/uL | EXTERNAL | | | Monocytes | performed at [facility];[address] | | LAB | | | | [address];[place] | | | | | | [address] | | | | + + + + + + | Absolute | 0.3Comment: Testing | 0 - 0.5 K/uL | EXTERNAL | | | Eosinophils | performed at [facility];[address] | | LAB | | | | [address];[place] | | | | | | [address] | | | | + + + + + + | Absolute | 0.0Comment: Testing | 0 - 0.1 K/uL | EXTERNAL | | | Basophils | performed at [facility];[address] | | LAB | | | | [address];[place] | | | | | | [address] | | | | + + + [...] + +---------+ + + Basic Metabolic Panel (12/01/2013 10:40 AM PDT) + + + + + + | Component | Value | Ref Range | Performed | Pathologist | | | | | At | Signature | + + + + + + | Na | 135Comment: Testing | 135 - 143 | EXTERNAL | | | | performed at [facility];[address] | mmol/L | LAB | | | | [address];[place], [place] | | | | | | [address] | | | | + + + + + + | K | 4.2Comment: Testing | 3.5 - 4.9 | EXTERNAL | | | | performed at [facility];[address] | mmol/L | LAB | | | | [address];[place] | | | | | | [address] | | | | + + + + + + | Cl | 105Comment: Testing | 99 - 109 mmol/L | EXTERNAL | | | | performed at [facility];[address] | | LAB | | | | [address];[place] | | | | | | [address] | | | | + + + + + + | CO2 | 13 (LL)Comment: CALLED | 23 - 32 mmol/L | EXTERNAL | | | | RESULTSREAD BACK RESULTS | | LAB | | | | KASEY/DR POSADA | | | | | | AT 111[address] BY SALTesting | | | | | | performed at [facility];[address] | | | | | | [address];[place] | | | | | | [address] | | | | + + + + + + | Anion Gap | 20Comment: Testing | 5 - 20 mmol/L | EXTERNAL | | | | performed at [facility];[address] | | LAB | | | | [address];[place] | | | | | | [address] | | | | + + + + + + | Glucose, | 93Comment: Testing | 65 - 99 mg/dL | EXTERNAL | | | Fasting | performed at [facility];[address] | | LAB | | | | [address];[place] | | | | | | [address] | | | | + + + + + + | BUN | 53 (H)Comment: Testing | 8 - 25 mg/dL | EXTERNAL | | | | performed at [facility];[address] | | LAB | | | | [address];[place] | | | | | | [address] | | | | + + + + + + | Creatinine | 10.71 (H)Comment: | 0.70 - 1.30 | EXTERNAL | | | | Testing performed at | mg/dL | LAB | | | | [facility];[address];[place] [address] | | | | + + + + + + | BUN/Creatin | 5Comment: Testing | | EXTERNAL | | | ine Ratio | performed at [facility];[address] | | LAB | | | | [address];[place] | | | | | | [address] | | | | + + + + + + | Calcium | 7.4 (L)Comment: Testing | 8.5 - 10.2 | EXTERNAL | | | | performed at [facility];[address] | mg/dL | LAB | | | | [address];[place] | | | | | | [address] | | | | + + + [...] | | | | | | at [facility];[address] | | | | | [address];[place] [address] | | | | + + + + + + + + | Specimen | + + | Blood specimen | | (specimen) | + + + +---------+ + + | Performing | Address | City/State/Zipcode | Phone Number | | Organization | | | | + +---------+ + + | EXTERNAL LAB | | | | + +---------+ + + MRSA NAAT (12/01/2013 10:40 AM PDT) + + | Specimen | + + | | + + + + + | Narrative | Performed At | + + + | [facility](NOSE) | EXTERNAL LAB | | Testing performed at [facility];[address] [place] [address];[place] [address] MRSA PCR | | | NEGATIVE Testing performed at | | | [address];[place] [address] | | + + + + +---------+ [...]
--- OUTSIDE RECORDS SUMMARY | ~2020-03-11 | XMS | Encounter Summary ---
Demographics + + + | Address | [address] | | | [place] [address] | + + + | Home Phone [...] Author + + + | Author | [facility] | | | and [place] | + + + | Organization | [facility] | | | [...] Team Providers + +------+ + | Care Crab Steamer Name | Role | Phone | + +------+ + PCP | Unavailable | + +------+ + Encounter Details +--------+ + + + + | Date | Type | Department | Care Team | Description | +--------+ + + + + | 02/03/ | Emergency | [facility] | No, Physician p | Patient left without | | 2018 | [facility] | | being seen (Primary | | | | CENTER [address] | | Dx) | | | | [place] | | | | | | [phone] | | | | | | [phone] | | | +--------+ + + + [...] (two) times | | | 18 | 0 | | | daily with meals. | [...] filedocumented as of this encounter Visit Diagnoses + + | Diagnosis | + + | Patient left without being seen - Primary Surgical or other procedure not carried out | | because of patient's decision | + + documented in this encounter [...]
--- OUTSIDE RECORDS SUMMARY | ~2020-03-11 | XMS | Encounter Summary ---
Demographics + + + | Address | [address] | | | [place] [address] | + + + | Home Phone | | + + + | Preferred Language | Unknown | + + + | Marital Status | Unknown | + + + | Adventist Affiliation | [id number] | + + + [...] Team Providers + +------+ + | Care Corrugated Fastener Driver Name | Role | Phone | + +------+ + PCP | Unavailable | + +------+ + Encounter Details +--------+ + + + + | Date | Type | Department | Care Team | Description | +--------+ + + + + | 08/08/ | Hospital | [facility] | Johnathon Colbert MD | Hyperkalemia; | | 2012 - | Encounter | [facility] | [address] | Hypothyroidism; | | | | [address] | [place] [address] | Vitamin d | | 08/09/ | [address] | [phone] | deficiency; Gout; | | 2012 | | [place], [place] | | Amphetamine and | | | | [address] | | other | | | | [phone] | | psychostimulant | | | | | | dependence, | | | | | | continuous (HCC); | | | | | | Hypoalbuminemia; | | | | | | Rash and nonspecific | | | | | | skin eruption; | | | | | | Chronic renal | | | | | | failure; Anemia; | | | | | | Anemia of chronic | | | | | | kidney failure; HTN | | | | | | (hypertension); Type | | | | | | II or unspecified | | | | | | type diabetes | | | | | | mellitus without | | | | | | mention of | | | | | | complication, not | | | | | | stated as | | | | | | uncontrolled ([facility]); | | | | | | ESRD (end stage | | | | | | renal disease) on | | | | | | dialysis ([facility]); | | | | | | 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 Discharge Summaries by Neli Trujillo MD at 08/19/12 7796 Author: Neli Trujillo MD Service: (none) Author Type: Physician Filed: 08/19/12 2123 Date of Service: 08/19/121438 Status: Signed Assembly Worker: Neli Trujillo MD (Physician) [facility] Service: Hospitalist Discharge Summary Date of Admission: 08/08/2012 Date of Discharge: 08/09/12 Discharge Provider: NELI TRUJILLO MD Treatment Team: Consulting Physician: Johnathon Colbert MD Consulting Physician: Sean Reid MD Admitting Provider: Johnathon Colbert MD Discharge Diagnoses: Active Problems: Type II or unspecified type diabetes mellitus without mention of complication, not stated as uncontrolled Hypothyroidism Diabetes mellitus with ESRD (end-stage renal disease) HTN (hypertension) ESRD (end stage renal disease) on dialysis Anemia of chronic kidney failure Resolved Problems: * No resolved hospital problems. * Procedures: * No surgery found * BRIEF HISTORY OF PRESENTATION: Enrique Potter is a 47 y.o. male with past medical history of hyperlipidemia, type 2 diabe trixie, chronic end-stage renal disease, history of GI bleed. Last time when he was in the hosp ital, he had a colonoscopy and endoscopy. Colonoscopy was clean and GI endoscopy showed ulce rs without any bleeding, with a clean base. He was in his usual state of health and is still in the usual state of health, but he missed his dialysis yesterday because he got only 15 m inutes of dialysis as he said that there was some bleeding at the dialysis site and he was h aving some numbness as well. Also he was recently in the hospital for bacteremia. At that ti mo dialysis catheter was changed, and he had a RONY as well. He missed his dialysis yesterday ; now he went to the emergency room at [facility], where he had a neck pain and wa s found to be anemic and transferred to [facility]. At [facility] his hemoglobin was 5.7 and hematocrit 17.9. He denied hav ing any bleeding or black stool, does not have any dizziness, lightheadedness, abdominal luca n, chest pain, or shortness of breath. He is not having any symptoms whatsoever. So I discus sed with Dr. Reid. Dr. Reid is going to dialyze him, and we will give Blood transfusion. He Had no CP, SOB, N/V, Diarrhea, Abdominal pain or MARTINEZ. No constipation or change in bowel habits. No orthopnea or PND. Appetite is good without abdominal bloating. No cough or fever. No dizziness, lightheadedness or any symptoms suggestive of stroke. HOSPITAL COURSE: A 47-year-old gentleman who presented with anemia. 1. Anemia. Most likely this is an anemia of kidney disease, getting worse. I really doubt that he is having acute GI bleed because he is not having any black stool or any abdominal pain. S/p transfusion with appropriate response. Nephrology on board and agreeing with disch arge 2. End-stage renal disease. IDr. vassa on consult, plans for HD on her note 3. Type 2 diabetes. Resume home med 4. Hypothyroidism. We are going to continue Synthroid. 5. Hypertension. Blood pressure is well controlled. We are going to continue his home medication. Past Medical History Diagnosis Date Hyperlipidemia Hypertension Diabetes mellitus type II Thyroid disease Anemia Abdominal pain, right upper quadrant 04/13/2012 Dialysis patient Chronic kidney disease dialysis GI bleed 04/30/2012 from coumadin Neuromuscular disorder [...] Amphetamine and other psychostimulant dependence, continuous 04/02/2012 Past Surgical History Procedure Date Colonoscopy with egd 05/01/2012 Procedure: COLONOSCOPY W/ EGD; Surgeon: John Singleton MD; Location: [facility] ENDOSCOPY; Se rvice: Gastroenterology; Laterality: N/A; Av fistula placement 05/06/2012 Procedure: AV FISTULA; Surgeon: Oskar Meyer MD; Location: [facility] MAIN OR; Service: Vascul ar; Laterality: Left; Left arm possible right Unlisted procedure arthroscopy shoulder rt , ligaments Knee arthroscopy 07/07/2012 Procedure: KNEE - ARTHROSCOPY; Surgeon: Favio Raza MD; Location: [facility] MAIN OR; S ervice: Orthopedics; Laterality: Right; After 1530 Catheter removal 07/07/2012 Procedure: DIALYSIS CATHETER REMOVAL; Surgeon: Oskar Meyer MD; Location: [facility] BEDSIDE GA OCEDURE; Service: General; Laterality: Right; perm cath Dialysis fistula creation 07/07/2012 Procedure: DIALYSIS CATHETER INSERTION; Surgeon: Oskar Meyer MD; Location: [facility] BEDSIDE PROCEDURE; Service: General; Laterality: Left; temporary dialysis catheter Av fistula repair 07/11/2012 Procedure: AV FISTULA GRAFT REPAIR/REVISION; Surgeon: Oskar Meyer MD; Location: [facility] OR; Service: Vascular; Laterality: Left; Superficialization of brachiobasilic fistula and right IJ perm cath insertion Dialysis fistula creation 07/11/2012 Procedure: DIALYSIS CATHETER INSERTION; Surgeon: Oskar Meyer MD; Location: [facility] MA[facility] OR; Service: Vascular; Laterality: Left; removed dialysis catheter from left neck and placed new on in left chest, attempted in right neck but unable to place Allergies Allergen Reactions Lisinopril Other (See Comments) "makes me sweat and knocked me out" Penicillins Other (See Comments) unknown No prescriptions prior to admission DISCHARGE EXAM Vital Signs: BP 160/83 | Pulse 99 | Temp(Src) 98.3 F (36.8 C) (Oral) | Resp 18 | Ht 1.702 m (5' 7") | Wt 76.4 kg (168 lb 6.9 oz) | BMI 26.38 kg/m2 | SpO2 100% Physical Exam Constitutional: Oriented to person, place, and time. appears well-developed and well-nouris hed. HEENT: Head: Normocephalic and atraumatic. Nose: Nose normal. Mouth/Throat: Oropharynx is clear and moist. Eyes: Conjunctivae and EOM are normal. Pupils are equal, round, and reactive to light. Righ t eye exhibits no discharge. Left eye exhibits no discharge. No scleral icterus. Neck: Normal range of motion. Neck supple. No JVD present. No tracheal deviation present. N o thyromegaly present. no cervical adenopathy. Cardiovascular: Normal rate, regular rhythm, normal heart sounds with S1 and S2, and intact distal pulses. Exam reveals no gallop and no friction rub. No murmur heard. Pulmonary/Chest: Effort normal and breath sounds normal. No stridor. No respiratory distres s. no wheezes. no rales. exhibits no tenderness. Abdominal: Soft. Bowel sounds are normal. exhibits no distension and no mass. There is no t enderness. There is no rebound and no guarding. Extremities/Musculoskeletal: Normal range of motion.exhibits no tenderness. exhibits no ed dana. Neurological: Alert and oriented to person, place, and time. Has normal reflexes. display s normal reflexes. No cranial nerve deficit. Exhibits normal muscle tone. Coordination norm al. Skin: Skin is warm and dry. No rash noted. No erythema. No pallor. Psychiatric: Has a normal mood and affect. Behavior is normal. Judgment normal. DATA CBC: Lab Results Component Value Date WBC 10.9 08/09/2012 RBC 3.44* 08/09/2012 HGB 9.5* 08/09/2012 HCT 29.8* 08/09/2012 MCV 86.6 08/09/2012 MCH 27.6 08/09/2012 MCHC 31.9* 08/09/2012 RDW 49.4 08/09/2012 PLT 452* 08/09/2012 MPV 6.2 08/09/2012 DIFFTYPE AUTOMATED 08/09/2012 CMP: Lab Results Component Value Date NA 129* 08/11/2012 K 4.5 08/11/2012 CL 97* 08/11/2012 CO2 24* 08/11/2012 ANIONGAP 13 08/11/2012 GLUF 97 08/11/2012 BUN 41* 08/11/2012 CREATININE 5.6* 08/11/2012 BCR 7.4 08/11/2012 CA 8.0* 08/11/2012 CA 6.1* 04/02/2012 PROT 7.0 08/11/2012 ALB 2.3 08/11/2012 GLOB 4.7 08/11/2012 BILITOT 0.6 08/11/2012 ALP 147 08/11/2012 AST 21 08/11/2012 ALT 10 08/11/2012 EGFR 11.0 08/11/2012 Disposition: Home Condition: Stable Code Status: Prior No discharge procedures on file. Follow up: [facility] [address] [facility] [address] in 2 days Sean Reid MD [address] [facility] [id number] in 2 days Discharge Medication List as of 08/09/2012 2:11 PM CONTINUE these medications which have NOT CHANGED Details albuterol (PROVENTIL) (2.5 MG/3ML) 0.083% nebulizer solution Take 2.5 mg by nebulization e very 6 (six) hours as needed., Until Discontinued, Historical Med ALBUTEROL IN Inhale 2 puffs into the lungs daily., Until Discontinued, Historical Med allopurinol (ZYLOPRIM) 100 MG tablet Take 1 tablet by mouth daily., Starting 07/13/2012, Un til Sat08/12/12, Print amlodipine (NORVASC) 10 MG tablet Take 10 mg by mouth nightly., Starting 04/15/2012, Until Sat04/15/13, Historical Med b complex-vitamin c-folic acid (NEPHRO-THU) 0.8 MG TABS Take 1 tablet by mouth daily. , Until Discontinued, Historical Med Cholecalciferol (VITAMIN D-3 PO) Take 1 tablet by mouth daily., Until Discontinued, Histor ical Med citalopram (CELEXA) 20 MG tablet Take 20 mg by mouth nightly., Until Discontinued, Histori herminia Med ergocalciferol (DRISDOL) 01296 UNITS capsule Take 1 capsule by mouth once a week., Startin g 04/15/2012, Until Sat04/15/13, Print fluticasone-salmeterol (ADVAIR DISKUS) 100-50 MCG/DOSE AEPB Inhale 1 puff into the lungs 2 (two) times daily. , Until Discontinued, Historical Med HYDROcodone-acetaminophen (NORCO) 10-325 MG per tablet Take 1 tablet by mouth every 6 (six ) hours as needed. , Until Discontinued, Historical Med levothyroxine (SYNTHROID, LEVOTHROID) 50 MCG tablet Take 50 mcg by mouth daily. , Until D iscontinued, Historical Med STOP taking these medications indomethacin (INDOCIN) 25 MG capsule Comments: Reason for Stopping: carvedilol (COREG) 3.125 MG tablet Comments: Reason for Stopping: diphenhydrAMINE (BENADRYL) 25 MG tablet Comments: Reason for Stopping: omeprazole (PRILOSEC) 40 MG capsule Comments: Reason for Stopping: sevelamer (RENVELA) 800 MG tablet Comments: Reason for Stopping: sodium bicarbonate 650 MG tablet Comments: Reason for Stopping: vancomycin (VANCOCIN) 750 mg/265 mL SOLN Comments: Reason for Stopping: Discharge took 30 minutes, to include final examination, discussion of admission, and prep aration of prescriptions, instructions for on-going care, follow-up and documentation of dis charge summary. NELI TRUJILLO MD 08/19/2012 documented in this encounter Medications at Time [...] Progress Notes Conversion Transaction, Provider Unknown - 08/09/2012 7:11 PM PSTFormatting of this note m ight be different from the original. Progress Notes by Maddy Maciel RN at 08/09/121910 Author: Maddy Maciel RN Service: (none) Author Type: Registered Nurse Filed: 08/09/121911 Date of Service: 08/09/121910 Status: Signed Assembly Worker: Maddy Maciel RN (Registered Nurse) Patient given discharge instructions and follow up appointment information. He was also giv en information about having dialysis on Saturday at his normal clinic. Family came to pick him up and transfer him home. Patient was escorted out in wheelchair by staff. Sean Willis T - 08/09/2012 12:39 PM PSTFormatting of this note might be different from the origi nal. Progress Notes by Sean Reid MD at 08/09/12 269 Author: Sean Reid MD Service: Nephrology Author Type: Physician Filed: 08/09/12 1257 Date of Service: 08/09/12 1239 Status: Signed Assembly Worker: Sean Reid MD (Physician) [facility] Service: NEPHROLOGY Progress Note Enrique Potter 47 y.o. [id number] male [facility] Hospital Day: LOS: 1 day SUBJECTIVE Patient seen and examined. severe anemia History Obtained From:Pt Stated Pt states he was feeling dizzy and lightheaded "like I was going to pass out, I knew something was wrong this morning". Went to [facility] ER THEN TR TO [facility], he was found to have severe anemia of 5.7 hemoglobin Patient had missed dialysis because of left upper arm AV fistula infiltration. On August 06, 2012 and was due for hemodialysis even today and missed the hemodialysis and chronic hem odialysis unit at [place] under Dr. Cook. Patient was recently admitted with MSSA bacteremia which is already resolved HISTORY OF PRESENT ILLNESS Nephrology consulted for evaluation and management of END-stage renal disease and maintenan ce hemodialysis ONSET ACUTE, Severe Associated with fluid electrolyte acid base imbalances Pt feeling better and had 4 units of PRBC yesterday during HD as DR COLBERT HAD SUGGESTED AND HAD TOLERATED HD WELL TO DAY HB 9.5 and DENIES ANY NEW PROBLEMS Denies fever, anorexia, fatigue, weakness, weight loss, peripheral edema, SOB, and chest pains. hemoptysis, and wheezing. nausea, vomiting, diarrhea, Hematochezia and hematemesis . urinary frequency, hesitancy, urgency, nocturia, Hematuria or pyuria or incontinence Or foamy urine , recent joint pain or swelling. edema in legs purpura and ecchymosis. dizziness, lightheadedness, tremores Or frequent headaches. Past Medical History Diagnosis Date Hyperlipidemia Hypertension Diabetes mellitus type II Thyroid disease Anemia Abdominal pain, right upper quadrant 04/13/2012 Dialysis patient Chronic kidney disease dialysis GI bleed 04/30/2012 from coumadin Neuromuscular disorder [...] Amphetamine and other psychostimulant dependence, continuous 04/02/2012 Past Surgical History Procedure Date Colonoscopy with egd 05/01/2012 Procedure: COLONOSCOPY W/ EGD; Surgeon: John Singleton MD; Location: [facility] ENDOSCOPY; Se rvice: Gastroenterology; Laterality: N/A; Av fistula placement 05/06/2012 Procedure: AV FISTULA; Surgeon: Oskar Meyer MD; Location: [facility] MAIN OR; Service: Vascul ar; Laterality: Left; Left arm possible right Unlisted procedure arthroscopy shoulder rt , ligaments Knee arthroscopy 07/07/2012 Procedure: KNEE - ARTHROSCOPY; Surgeon: Favio Raza MD; Location: [facility] MAIN OR; S ervice: Orthopedics; Laterality: Right; After 1530 Catheter removal 07/07/2012 Procedure: DIALYSIS CATHETER REMOVAL; Surgeon: Oskar Meyer MD; Location: [facility] BEDSIDE GA OCEDURE; Service: General; Laterality: Right; perm cath Dialysis fistula creation 07/07/2012 Procedure: DIALYSIS CATHETER INSERTION; Surgeon: Oskar Meyer MD; Location: [facility] BED[facility] PROCEDURE; Service: General; Laterality: Left; temporary dialysis catheter Av fistula repair 07/11/2012 Procedure: AV FISTULA GRAFT REPAIR/REVISION; Surgeon: Oskar Meyer MD; Location: [facility] N OR; Service: Vascular; Laterality: Left; Superficialization of brachiobasilic fistula and right IJ perm cath insertion Dialysis fistula creation 07/11/2012 Procedure: DIALYSIS CATHETER INSERTION; Surgeon: Oskar Meyer MD; Location: [facility] MA[facility] OR; Service: Vascular; Laterality: [...] History Narrative , LIVES WITH [employer]; 2 STEP KIDSUNEMPLOYED BEFORE WORKED AT [employer] [place] E[place] QUIT 15 YEARS AGODRUGS: quit METHAMPHETAMINES PER P ATIENT after the ARF in mar 2012FATHER HAS COLON CANCER, HEART DISEASEMOTHER 15 YEARS AGONO FH KIDNEY PROBLEMS. Family History Problem Relation Age of Onset Heart disease Mother Heart disease Father Diabetes Father Cancer Father colon cancer Scheduled Medications albumin human 12.5 g Intravenous Once albuterol 20 mg Nebulization Once allopurinol 100 mg Oral Daily amlodipine 10 mg Oral Nightly calcium gluconate 1 g Intravenous Once citalopram 20 mg Oral Nightly dextrose 25 g Intravenous Once epoetin alena 20,000 Units Intravenous QMWF ergocalciferol 50,000 Units Oral Weekly fluticasone-salmeterol 1 puff Inhalation 2 times daily insulin aspart 0-10 Units Subcutaneous TID AC insulin aspart 0-5 Units Subcutaneous Nightly insulin regular 5 Units Intravenous Once levothyroxine 50 mcg Oral Daily midodrine 10 mg Oral Once in dialysis sodium bicarbonate 50 mEq Intravenous Once vitamin B hvljcbq-F-qhuci acid 1 tablet Oral Daily DISCONTD: epoetin alena 20,000 Units Intravenous QMWF Continuous Infusions dextrose PRN Medications acetaminophen, acetaminophen, albuterol, dextrose, dextrose, dextrose, glucagon, glucagon, HYDROcodone-acetaminophen, insulin aspart, ondansetron, ondansetron, polyethylene glycol, so dium chloride, sodium chloride, sodium chloride, zolpidem Allergy: Allergies Allergen Reactions Lisinopril Other (See Comments) "makes me sweat and knocked me out" Penicillins Other (See Comments) unknown OBJECTIVE Vital Signs: BP 160/83 | Pulse 99 | Temp(Src) 98.3 F (36.8 C) (Oral) | Resp 18 | Ht 1.702 m (5' 7") | Wt 76.4 kg (168 lb 6.9 oz) | BMI 26.38 kg/m2 | SpO2 100% I&O Detailed Table: I/O last 3 completed shifts: In: 2400 [P.O.:400; Other:2000] Out: 4800 [Urine:200; Other:4600] Weight change: Hemodynamics Last 24hrs: Examination: Constitutional: Alert awake and oriented HEENT: no JVD, non icteric sclera. Cardiovascular: S1soft. S2 split not appreciated. No friction rub. No S3. No murmur. LUNGS:: Clear breath sounds bilaterally, no wheezes and no rales. Abdominal: SoftNo distension and no mass. There is no rebound tenderness and no guarding. Musculoskeletal: No gross deformity, EXT: B/L LE with chronic venous changes. Neurological: No gross focal motor neurologic deficits. Skin: Skin is warm and dry. Multiple target lesions all over his body almost faded Hemodialysis access: Left upper extremity brachiocephalic fistula with good bruit Left IJ hemodialysis catheter was removed 08/06/2012 LYMPH NODES; NOT PALPABLE LABS: IRON: Lab Results Component Value Date IRON 29 04/28/2012 Lab Results Component Value Date FERRITIN 245.0 04/28/2012 LABIRON 20 04/28/2012 CBC: Lab Results Component Value Date WBC 10.9 08/09/2012 RBC 3.44* 08/09/2012 HGB 9.5* 08/09/2012 HCT 29.8* 08/09/2012 MCV 86.6 08/09/2012 MCH 27.6 08/09/2012 MCHC 31.9* 08/09/2012 RDW 49.4 08/09/2012 PLT 452* 08/09/2012 MPV 6.2 08/09/2012 DIFFTYPE AUTOMATED 08/09/2012 CMP: Lab Results Component Value Date NA 137 08/09/2012 K 4.0 08/09/2012 CL 100 08/09/2012 CO2 26 08/09/2012 ANIONGAP 14 08/09/2012 GLUF 114* 08/09/2012 BUN 29* 08/09/2012 CREATININE 4.16* 08/09/2012 BCR 7 08/09/2012 CA 7.7* 08/09/2012 CA 6.1* 04/02/2012 PROT 6.2* 08/08/2012 ALB 1.5* 08/08/2012 GLOB 4.7 08/08/2012 BILITOT 0.4 08/08/2012 ALP 113 08/08/2012 AST 32 08/08/2012 ALT 14 08/08/2012 EGFR 16* 08/09/2012 Magnesium: Lab Results Component Value Date MG 1.9 08/09/2012 Phosphorus: Lab Results Component Value Date PHOS 4.4 08/09/2012 PT/INR: Lab Results Component Value Date INR 1.2 07/07/2012 Troponin: Lab Results Component Value Date TROPONINI <0.02 07/07/2012 IMAGING Ir Removal Dialysis Catheter (tunneled) 08/07/2012 PROCEDURE Removal of dual-lumen tunneled dialysis catheter in left upper chest u nder local anesthesia. INDICATIONS Patient with functioning left upper arm AV fistula. No l onger utilizing tunneled dialysis catheter as a functioning access, needs removal. [facility] PROVIDER Juan Cook MD MEDICATIONS Lidocaine 1% for local anesthesia. DESCRIPTION OF PROCEDURE I met this patient in the [facility] holding room. I had a discussion with the mahamed ent regarding the procedure, the risks involved, and the alternatives. The patient verbalize d understanding of this and their desire was to proceed with the procedure. Therefore, writt en informed consent was obtained. The patient was lying supine in the bed. The left upper c hest and external portion of the catheter were prepped utilizing chlorahexadine scrubs. The skin and subcutaneous tissues were infiltrated with lidocaine 1%. Sterile drapes were laurent and sterile technique was maintained throughout the procedure. Heparin lock was removed from the dialysis catheter and 0.035 Amplatz guidewire was placed through the venous port. Subs equently, using blunt dissection, the subcutaneous cuff was from the adjacent soft tissues and the catheter was removed over the wire. Hemostasis was obtained with manual pre ssure. The patient tolerated the procedure well and no procedural complications were encoun tered. IMPRESSION Successful removal of left upper chest tunneled dialysis catheter under l ocal anesthesia without incident. Electronically signed by DARRELL Montiel on 013 1:39 PM PROBLEM LIST Active Problems: Type II or unspecified type diabetes mellitus without mention of complication, not stated as uncontrolled Hypothyroidism Diabetes mellitus with ESRD (end-stage renal disease) HTN (hypertension) ESRD (end stage renal disease) on dialysis Anemia of chronic kidney failure ASSESSMENT & PLAN ESRD Nonoliguric ESRD secondary to diabetic nephropathy who is now admitted with dizzyness and s evere anemia TOLERATED Hemodialysis 08/08/2012 and had 4 units PRBC during hemodialysis, patient has a f ew antibodies in his blood MSSA bacteremia and right knee septic arthritis and possibly with infected dialysis cathete r which has since been removed. Recent superficialization of left brachiocephalic fistula. Blood cultures from the 07/08 are negative. We will continue maintenance hemodialysis Saturday and Saturday. At [facility] HD UNIT UNDER DR COOK BP: Better controlled. Continue low-dose Coreg. Anemia: I would use ANAYA to keep Hb between 10 and 11. Severe anemia with hemoglobin of 9.5 vs 5.7 of unclear etiology, patient does not give a ny history of bleeding from any sites CKD-MBD: Vitamin D deficiency: Secondary hyperparathyroidism: Electrolytes/Acid base balance: Gout: stable Continue PO4 binders (calcium based given hypocalcemia) and PO restricted diet. I would replace K PO to keep between 4 to 4.5 to prevent weakness. For acute gout I would continue allopurinol to prevent further flareup. Hx sepsis with MSSA bacteremia: RONY is negative for endocarditis. He is penicillin allergic and was treated with vancomycin for MSSA bacteremia D/W DR TRUJILLO that if there are no other issues may be discharged home and he should go to HD unit for HD on Saturday, She agreed PROCRIT 20,000 unit today SQ Time spend over 25 minutes of time spent evaluating the patient, reviewing the data, formul ating a plan and discussion with patient and hospitalist team, more than half of the time sp ent in counseling and coordination of care. SEAN REID MD 08/09/2012 Chela King RPH - 08/08/2012 6:45 PM PST Progress Notes by Chela Varela RPH at 08/08/121844 Author: Chela Varela RPH Service: (none) Author Type: Pharmacist Filed: 08/08/121844 Date of Service: 08/08/121844 Status: Signed Assembly Worker: Chela Varela RPH (Pharmacist) Clinical Pharmacy Note - Renal Dose Adjustment Enrique Potter 47 y.o. male Ht Readings from Last 1 Encounters: 08/08/12 1.702 m (5' 7") Wt Readings from Last 1 Encounters: 08/08/12 79.833 kg (176 lb) CREATININE Date Value Range Status 08/08/2012 6.51* 0.70 - 1.30 mg/dL Final Testing performed at [facility];[address] [place] [address];[place] [address] ESRD on HD Pharmacy to renally adjust medications per Dr. Colbert Plan: No current medications will require renal dose adjustment for HD. Pharmacy will continue to follow and adjust as appropriate. Pharmacist: Chela Varela 08/08/2012 6:43 PM documente d in this encounter H&P Notes Johnathon Colbert MD - 08/08/2012 3:01 PM PST H&P by Johnathon Colbert MD at 08/08/12 1501 Author: Johnathon Colbert MD Service: Hospitalist Author Type: Physician Filed: 08/09/12 6741 Date of Service: 08/08/12 1501 Status: Signed Assembly Worker: Johnathon Colbert MD (Physician) Related Notes: Original Note by Johnathon Colbert MD (Physician) filed at 08/08/12 1510 [facility] Service: Hospitalist Admission History & Physical Pt: Enrique Potter AGE/SEX: 47 y.o. male ROOM: 05/04 PCP: [facility] : 1965 TODAY'S DATE: 08/08/2012 Date of Admission: 08/08/2012 Chief Complaint: Missed his HD and Anemia History of Present Illness: A 47-year-old gentleman with past medical history of hyperlipidemia, type 2 diabetes, chron ic end-stage renal disease, history of GI bleed. Last time when he was in the hospital, he h ad a colonoscopy and endoscopy. Colonoscopy was clean and GI endoscopy showed ulcers without any bleeding, with a clean base. He was in his usual state of health and is still in the [facility] state of health, but he missed his dialysis yesterday because he got only 15 minutes of dialysis as he said that there was some bleeding at the dialysis site and he was having some numbness as well. Also he was recently in the hospital for bacteremia. At that time dialysi s catheter was changed, and he had a RONY as well. He missed his dialysis yesterday; now he went to the emergency room at [facility], where he had a neck pain and was found t o be anemic and transferred to [facility]. At [facility] his hemoglobin was 5.7 and hematocrit 17.9. He denied hav ing any bleeding or black stool, does not have any dizziness, lightheadedness, abdominal luca n, chest pain, or shortness of breath. He is not having any symptoms whatsoever. So I discus sed with Dr. Reid. Dr. Reid is going to dialyze him, and we will give Blood transfusion. He Had no CP, SOB, N/V, Diarrhea, Abdominal pain or MARTINEZ. No constipation or change in bowel habits. No orthopnea or PND. Appetite is good without abdominal bloating. No cough or fever. No dizziness, lightheadedness or any symptoms suggestive of stroke. PMHx: Past Medical History Diagnosis Date Hyperlipidemia Hypertension Diabetes mellitus type II Thyroid disease Anemia Abdominal pain, right upper quadrant 04/13/2012 Dialysis patient Chronic kidney disease dialysis GI bleed 04/30/2012 from coumadin Neuromuscular disorder [...] Amphetamine and other psychostimulant dependence, continuous 04/02/2012 PSHx: Past Surgical History Procedure Date Colonoscopy with egd 05/01/2012 Procedure: COLONOSCOPY W/ EGD; Surgeon: John Singleton MD; Location: [facility] ENDOSCOPY; Se rvice: Gastroenterology; Laterality: N/A; Av fistula placement 05/06/2012 Procedure: AV FISTULA; Surgeon: Oskar Meyer MD; Location: [facility] MAIN OR; Service: Vascul ar; Laterality: Left; Left arm possible right Unlisted procedure arthroscopy shoulder rt , ligaments Knee arthroscopy 07/07/2012 Procedure: KNEE - ARTHROSCOPY; Surgeon: Favio Raza MD; Location: [facility] MAIN OR; S ercherie: Orthopedics; Laterality: Right; After 1530 Catheter removal 07/07/2012 Procedure: DIALYSIS CATHETER REMOVAL; Surgeon: Oskar Meyer MD; Location: [facility] BEDSIDE GA OCEDURE; Service: General; Laterality: Right; perm cath Dialysis fistula creation 07/07/2012 Procedure: DIALYSIS CATHETER INSERTION; Surgeon: Oskar Meyer MD; Location: [facility] BEDS[facility] PROCEDURE; Service: General; Laterality: Left; temporary dialysis catheter Av fistula repair 07/11/2012 Procedure: AV FISTULA GRAFT REPAIR/REVISION; Surgeon: Oskar Meyer MD; Location: [facility]; Service: Vascular; Laterality: Left; Superficialization of brachiobasilic fistula and right IJ perm cath insertion Dialysis fistula creation 07/11/2012 Procedure: DIALYSIS CATHETER INSERTION; Surgeon: Oskar Meyer MD; Location: [facility] MA[facility] OR; Service: Vascular; Laterality: [...] (six) hours as needed. Yes Historical Provider ALBUTEROL IN Inhale 2 puffs into the lungs daily. Yes Historical Provider allopurinol (ZYLOPRIM) 100 MG tablet Take 1 tablet by mouth daily. 07/13/12 08/12/12 Yes Al Coon, amlodipine (NORVASC) 10 MG tablet Take 10 mg by mouth nightly. 04/15/12 04/15/13 Yes Johnathon Colbert MD b complex-vitamin c-folic acid (NEPHRO-THU) 0.8 MG TABS Take 1 tablet by mouth daily. Yes Historical Provider Cholecalciferol (VITAMIN D-3 PO) Take 1 tablet by mouth daily. Yes Historical Provider citalopram (CELEXA) 20 MG tablet Take 20 mg by mouth nightly. Yes Historical Provider ergocalciferol (DRISDOL) 12148 UNITS capsule Take 1 capsule by mouth once a week. 04/15/12 04/15/13 Yes Johnathon Colbert MD fluticasone-salmeterol (ADVAIR DISKUS) 100-50 MCG/DOSE AEPB Inhale 1 puff into the lungs 2 (two) times daily. Yes Historical Provider HYDROcodone-acetaminophen (NORCO) 10-325 MG per tablet Take 1 tablet by mouth every 6 (six) hours as needed. Yes Historical Provider indomethacin (INDOCIN) 25 MG capsule Take 25 mg by mouth 3 (three) times daily with meals. Yes Historical Provider levothyroxine (SYNTHROID, LEVOTHROID) 50 MCG tablet Take 50 mcg by mouth daily. Yes His torical Provider carvedilol (COREG) 3.125 MG tablet Take 1 tablet by mouth 2 (two) times daily with meals. 08/08/12 Al Coon, DO diphenhydrAMINE (BENADRYL) 25 MG tablet Take 25 mg by mouth every 6 (six) hours as needed. 08/08/12 Historical Provider omeprazole (PRILOSEC) 40 MG capsule Take 40 mg by mouth nightly. 05/02/12 08/08/12 Johnathon thompson MD sevelamer (RENVELA) 800 MG tablet Take 1 tablet by mouth 3 (three) times daily with meals. 07/13/12 08/08/12 Al Coon, DO sodium bicarbonate 650 MG tablet Take 1,300 mg by mouth 2 (two) times daily. 08/08/12 Me storical Provider vancomycin (VANCOCIN) 750 mg/265 mL SOLN Inject 750 mg into the vein See Admin Instructions . After hemodialysis . 07/13/12 08/08/12 Kisha Tello MD Medications scheduled: albuterol 20 mg Nebulization Once calcium gluconate 1 g Intravenous Once dextrose 25 g Intravenous Once insulin regular 5 Units Intravenous Once sodium bicarbonate 50 mEq Intravenous Once Allergies: Allergies Allergen Reactions Lisinopril Other (See Comments) "makes me sweat and knocked me out" Penicillins Other (See Comments) unknown Family Hx: Family History Problem Relation Age of Onset Heart disease Mother Heart disease Father Diabetes Father Cancer Father colon cancer Social Hx: History Substance Use Topics Smoking status: Never Smoker Smokeless tobacco: Never Used Alcohol Use: No Review of Symptoms: Only Highlighted one are positive and rest are negative Constitutional: Fever, chills, diaphoresis, activity change, appetite change, fatigue and u nexpected weight change. HENT: Hearing loss, ear pain, nosebleeds, congestion, facial swelling, rhinorrhea, neck luca n, neck stiffness, dental problem, tinnitus and ear discharge. Eyes: Photophobia, pain, discharge, redness, itching and visual disturbance. Respiratory: Apnea, cough, chest tightness, shortness of breath and wheezing. Cardiovascular: Chest pain, palpitations and leg swelling. Gastrointestinal: Nausea, vomiting, abdominal pain, diarrhea, constipation, blood in stool, abdominal distention, anal bleeding and rectal pain. Genitourinary: Dysuria, frequency, hematuria, flank pain, difficulty urinating and dyspareu leeann. Musculoskeletal: Back pain, joint swelling, arthralgias and gait problem. Skin: Color change, pallor, rash and wound. Neurological: Dizziness, tremors, seizures, syncope, weakness, light-headedness, numbness a nd headaches. Hematological: Adenopathy. Does not bruise/bleed easily. Psychiatric/Behavioral: Suicidal ideas, hallucinations, behavioral problems, confusion and agitation. Objective: Vital Signs: BP 103/64 | Pulse 92 | Temp(Src) 96.9 F (36.1 C) (Oral) | Resp 14 | Ht 1.702 m (5' 7") | Wt 79.833 kg (176 lb) | BMI 27.57 kg/m2 | SpO2 100% Physical Exam: Constitutional: Oriented to person, place, and time. appears well-developed and well-nouris hed. HEENT: Head: Normocephalic and atraumatic. Nose: Nose normal. Mouth/Throat: Oropharynx is clear and moist. Eyes: Conjunctivae and EOM are normal. Pupils are equal, round, and reactive to light. Righ t eye exhibits no discharge. Left eye exhibits no discharge. No scleral icterus. Neck: Normal range of motion. Neck supple. No JVD present. No tracheal deviation present. N o thyromegaly present. no cervical adenopathy. Cardiovascular: Normal rate, regular rhythm, normal heart sounds with S1 and S2, and intact distal pulses. Exam reveals no gallop and no friction rub. No murmur heard. Pulmonary/Chest: Effort normal and breath sounds normal. No stridor. No respiratory distres s. no wheezes. no rales. exhibits no tenderness. Abdominal: Soft. Bowel sounds are normal. exhibits no distension and no mass. There is no t enderness. There is no rebound and no guarding. Extremities/Musculoskeletal: Normal range of motion.exhibits no tenderness. exhibits no ed dana. Neurological: Alert and oriented to person, place, and time. Has normal reflexes. display s normal reflexes. No cranial nerve deficit. Exhibits normal muscle tone. Coordination norm al. Skin: Skin is warm and dry. No rash noted. No erythema. No pallor. Psychiatric: Has a normal mood and affect. Behavior is normal. Judgment normal. Data: Lab 08/08/12 1319 08/04/12 WBC 11.8* 10.4 HGB 5.7* 8.0* HCT 17.9* 26* PLT 433* 507* NEUTOPHILPCT 69.6 71 MONOPCT 7.8 7 Lab 08/08/12 1319 08/04/12 NA 137 126* K 5.0* 3.6 CL 99 91* CO2 29 27* BUN 52* 21 CREATININE 6.51* 4.8* CALCIUM -- -- PROT 6.2* 6.4 BILITOT 0.4 0.5 ALKPHOS -- -- ALT 14 8* AST 32 20 GLUCOSE -- -- Phosphorus: Lab Results Component Value Date PHOS 5.2* 08/08/2012 Lab 08/08/12 1319 MG 1.9 Problem List: Active Problems: Type II or unspecified type diabetes mellitus without mention of complication, not stated as uncontrolled Hypothyroidism Diabetes mellitus with ESRD (end-stage renal disease) HTN (hypertension) ESRD (end stage renal disease) on dialysis Anemia of chronic kidney failure Assessment and Plan: A 47-year-old gentleman who presented with anemia. 1. Anemia. Most likely this is an anemia of kidney disease, getting worse. I really doubt that he is having acute GI bleed because he is not having any black stool or any abdominal pain. So I am going to transfuse 4 units of blood during the hemodialysis. 2. End-stage renal disease. I discussed with Dr. Reid. The patient is going to get dialysis today. 3. Type 2 diabetes. We will put him on insulin sliding scale. 4. Hypothyroidism. We are going to continue Synthroid. 5. Hypertension. Blood pressure is well controlled. We are going to continue his home medication. I discussed this case in detail with the patient. More likely after blood transfusion, if issac sierra has no more active GI bleeding, he will go home. Patient's old records and labs were reviewed in detail and summarized. Code Status: Prior Primary Care Physician: [facility] JOHNATHON COLBERT MD, FACP 08/08/2012 3:01 PM documented in this enc ounter Consult Notes Conversion Transaction, Provider Unknown - 08/09/2012 4:26 PM PSTFormatting of this note m ight be different from the original. Consults by Lolis Nicholas RN at 08/09/12 1626 Author: Lolis Nicholas RN Service: Wound/Ostomy Care Author Type: Registered Nurse Filed: 10/23/12 0835 Date of Service: 08/09/121625 Status: Signed Assembly Worker: Lolis Nicholas RN (Registered Nurse) Consult Orders: 1. Wound Care Evaluation and Treat [[id number]] ordered by Neli Trujillo MD at 08/09/12 0541 [facility] Service: Wound Care Consult Note Hospital Day: LOS: 1 day Post-Op Day: * No surgery found * SUBJECTIVE Patient Summary: This is a 47 year old male admitted from [facility] from the [facility], admitted with anemia, end stage renal disease, IDDM, Hypertension and Hyperthyro idism. Present on admission was a resolving stage 3 pressure ulcer to the right buttock, The patients skin has scattered areas of skin irritation from unknown cause but appears to be chronic. OBJECTIVE Wound #1: Classification: Pressure Ulcer Stage 3 Location:right buttock Drainage Amount:Scant Drainage Type:Serous Wound Odor After Wound is Cleaned:None Periwound Skin:intact Wound Size:1cm x 2cm x 0.1cn (cm) Length Tunneling: none Undermining none Wound bed: pink an moist Wound Infection:none PROBLEM LIST Active Problems: Type II or unspecified type diabetes mellitus without mention of complication, not stated as uncontrolled Hypothyroidism Diabetes mellitus with ESRD (end-stage renal disease) HTN (hypertension) ESRD (end stage renal disease) on dialysis Anemia of chronic kidney failure ASSESSMENT & PLAN Classification: Pressure Ulcer Pressure Ulcer Stage - Stage 3 Was Pressure Ulcer Present on Admission- Yes removal of existing dressing visual inspection application of clean dressing LOLIS NICHOLAS RN 4:27 PM 08/09/2012 Sean Willis - 08/08/2012 3:10 PM PSTFormatting of this note might be different from the origi nal. Consult* by Sean Reid MD at 08/08/12 8780 Author: Sean Reid MD Service: Nephrology Author Type: Physician Filed: 08/08/12 5874 Date of Service: 08/08/12 1510 Status: Signed Assembly Worker: Sean Reid MD (Physician) [facility] Service: NEPHROLOGY CONSULT Note Enrique Potter 47 y.o. [id number] [birth year] male [facility] Hospital Day: LOS: 0 days Date of Admission: 08/08/2012 Requesting Physician: ED provider/ Hospitalist Reason for Admission: severe anemia History Obtained From:Pt Stated Pt states he was feeling dizzy and lightheaded "like I was going to pass out, I knew something was wrong this morning". Went to [facility] ER THEN TR TO [facility], he was found to have severe anemia of 5.7 hemoglobin Patient had missed dialysis because of left upper arm AV fistula infiltration. On August 06, 2012 and was due for hemodialysis even today and missed the hemodialysis and chronic hem odialysis unit at [place] under Dr. Cook. Patient was recently admitted with MSSA bacteremia which is already resolved HISTORY OF PRESENT ILLNESS Nephrology consulted for evaluation and management of END-stage renal disease and maint enance hemodialysis ONSET ACUTE, Severe Associated with fluid electrolyte acid base imbalances Past Medical History Diagnosis Date Hyperlipidemia Hypertension Diabetes mellitus type II Thyroid disease Anemia Abdominal pain, right upper quadrant 04/13/2012 Dialysis patient Chronic kidney disease dialysis GI bleed 04/30/2012 from coumadin Neuromuscular disorder [...] Amphetamine and other psychostimulant dependence, continuous 04/02/2012 Past Surgical History Procedure Date Colonoscopy with egd 05/01/2012 Procedure: COLONOSCOPY W/ EGD; Surgeon: John Singleton MD; Location: [facility] ENDOSCOPY; Se rvice: Gastroenterology; Laterality: N/A; Av fistula placement 05/06/2012 Procedure: AV FISTULA; Surgeon: Oskar Meyer MD; Location: [facility] MAIN OR; Service: Vascul ar; Laterality: Left; Left arm possible right Unlisted procedure arthroscopy shoulder rt , ligaments Knee arthroscopy 07/07/2012 Procedure: KNEE - ARTHROSCOPY; Surgeon: Favio Raza MD; Location: [facility] MAIN OR; S chidi: Orthopedics; Laterality: Right; After 1530 Catheter removal 07/07/2012 Procedure: DIALYSIS CATHETER REMOVAL; Surgeon: Oskar Meyer MD; Location: [facility] BEDSIDE GA OCEDURE; Service: General; Laterality: Right; perm cath Dialysis fistula creation 07/07/2012 Procedure: DIALYSIS CATHETER INSERTION; Surgeon: Oskar Meyer MD; Location: [facility] BED[facility] PROCEDURE; Service: General; Laterality: Left; temporary dialysis catheter Av fistula repair 07/11/2012 Procedure: AV FISTULA GRAFT REPAIR/REVISION; Surgeon: Oskar Meyer MD; Location: [facility]; Service: Vascular; Laterality: Left; Superficialization of brachiobasilic fistula and right IJ perm cath insertion Dialysis fistula creation 07/11/2012 Procedure: DIALYSIS CATHETER INSERTION; Surgeon: Oskar Meyer MD; Location: [facility] MA[facility] OR; Service: Vascular; Laterality: Left; removed dialysis catheter from left neck and placed new on in left chest, attempted in right neck but unable to place (Not in a hospital admission) Allergies Allergen Reactions Lisinopril Other (See Comments) "makes me sweat and knocked me out" Penicillins Other (See Comments) unknown Family History Problem Relation Age of Onset Heart disease Mother Heart disease Father Diabetes Father Cancer Father colon cancer History Smoking status Never Smoker Smokeless tobacco Never Used History Alcohol Use No History Drug Use No last used marijuana on 04/29/12, quit methaamphetamine in mar 2012 after ARF Home Medications (Not in a hospital admission) Scheduled Medications albuterol 20 mg Nebulization Once calcium gluconate 1 g Intravenous Once dextrose 25 g Intravenous Once insulin regular 5 Units Intravenous Once sodium bicarbonate 50 mEq Intravenous Once Continuous Infusions PRN Medications Allergy: Allergies Allergen Reactions Lisinopril Other (See Comments) "makes me sweat and knocked me out" Penicillins Other (See Comments) unknown OBJECTIVE Vital Signs: BP 103/64 | Pulse 92 | Temp(Src) 96.9 F (36.1 C) (Oral) | Resp 14 | Ht 1.702 m (5' 7") | Wt 79.833 kg (176 lb) | BMI 27.57 kg/m2 | SpO2 100% I&O Detailed Table: Weight change: Hemodynamics Last 24hrs: ROS: REVIEW OF SYSTEM: General: Denies fever, chills, sweats, anorexia, fatigue, weakness, malaise, weight loss, a nd sleep disorder. Cardiovascular: Denies peripheral edema, SOB, and chest pains. ENT: Denies sinus problems and oral thrush. Respiratory: Denies chronic cough, hemoptysis, and wheezing. GI: Denies nausea, vomiting, diarrhea, melena, [...] Centeno 2 inhibitors, herbal medication, recent IV contras Rest of the ROS Unremarkable. Examination: Constitutional: Alert awake and oriented HEENT: no JVD, non icteric sclera. Cardiovascular: S1soft. S2 split not appreciated. No friction rub. No S3. No murmur. LUNGS:: Clear breath sounds bilaterally, no wheezes and no rales. Abdominal: SoftNo distension and no mass. There is no rebound tenderness and no guarding. Musculoskeletal: No gross deformity, EXT: B/L LE with chronic venous changes. Neurological: No gross focal motor neurologic deficits. Skin: Skin is warm and dry. Multiple target lesions all over his body almost faded Hemodialysis access: Left upper extremity brachiocephalic fistula with good bruit Left IJ hemodialysis catheter was removed 08/06/2012 LYMPH NODES; NOT PALPABLE LABS: Recent Results (from the past 48 hour(s)) CBC W/AUTO DIFF (REFLEX TO MANUAL) Collection Time 08/08/12 1:19 PM Component Value Range WBC 11.8 (*) 3.8 - 11.0 K/uL RBC 2.09 (*) 4.20 - 5.70 M/uL HGB 5.7 (*) 13.2 - 17.0 g/dL HCT 17.9 (*) 39.0 - 50.0 % MCV 85.5 80.0 - 100.0 fl MCH 27.1 27.0 - 34.0 pg MCHC 31.7 (*) 32.0 - 35.5 g/dL RDW SD 53.8 (*) 37 - 53 fl PLT 433 (*) 150 - 400 K/uL MPV 5.6 DIFF TYPE AUTOMATED NEUTROPHILS 69.6 40 - 75 % LYMPHOCYTES 6.4 (*) 15 - 48 % MONOCYTES 7.8 0 - 12 % EOSINOPHILS 15.8 (*) 0 - 7 % BASOPHILS 0.4 0 - 2 % NEUTROPHILS ABS 8.2 (*) 1.9 - 7.4 K/uL LYMPHOCYTES ABS 0.8 (*) 1.0 - 3.9 K/uL MONOCYTES ABS 0.9 (*) 0 - 0.8 K/uL EOSINOPHILS ABS 1.9 (*) 0 - 0.5 K/uL BASOPHILS ABS 0.0 0 - 0.1 K/uL Platelet Estimate INCREASED MORPHOLOGY 2+ COMPREHENSIVE METABOLIC PANEL Collection Time 08/08/12 1:19 PM Component Value Range SODIUM 137 135 - 143 mmol/L POTASSIUM 5.0 (*) 3.5 - 4.9 mmol/L CHLORIDE 99 99 - 109 mmol/L CO2 29 23 - 32 mmol/L ANION GAP AGAP 13 5 - 20 mmol/L GLUCOSE 82 65 - 99 mg/dL BUN 52 (*) 8 - 25 mg/dL CREATININE 6.51 (*) 0.70 - 1.30 mg/dL BUN/CREAT 8 CALCIUM 7.4 (*) 8.5 - 10.2 mg/dL TOTAL PROTEIN 6.2 (*) 6.3 - 8.2 g/dL Albumin 1.5 (*) 3.6 - 5.0 g/dL GLOBULIN 4.7 1.3 - 4.9 g/dL A/G 0.3 (*) 1.0 - 2.4 TBIL 0.4 0.1 - 1.5 mg/dL ALK PHOS 113 35 - 115 U/L AST 32 10 - 45 U/L ALT 14 10 - 65 U/L EGFR 10 (*) >60 mL/min/1.73m2 MAGNESIUM Collection Time 08/08/12 1:19 PM Component Value Range MAGNESIUM 1.9 1.7 - 2.4 mg/dL PHOSPHOROUS Collection Time 08/08/12 1:19 PM Component Value Range PHOSPHORUS 5.2 (*) 2.3 - 4.8 mg/dL PREPARE RBC (TYPE AND CROSSMATCH) (BLOOD BANK) Collection Time 08/08/12 1:50 PM Component Value Range ARM BAND NUMBER [id number] ARM BAND NUMBER Value: Testing performed at [facility];[address] [facility];[place] [address] ABO/RH(D) O POSITIVE ABO/RH(D) Value: Testing performed at [facility];[address];[place] [address] ANTIBODY SCREEN POSITIVE ANTIBODY SCREEN Value: Testing performed at [facility];[address] [place] [address] Antibody ID PENDING ] Lab Results Component Value Date FERRITIN 245.0 04/28/2012 LABIRON 20 04/28/2012 No results found for this basename: labprot IMAGING: Ir Removal Dialysis Catheter (tunneled) 08/07/2012 PROCEDURE Removal of dual-lumen tunneled dialysis catheter in left upper chest u nder local anesthesia. INDICATIONS Patient with functioning left upper arm AV fistula. No l onger utilizing tunneled dialysis catheter as a functioning access, needs removal. REQUESTI NG PROVIDER Juan Cook MD MEDICATIONS Lidocaine 1% for local anesthesia. DESCRIPTION OF PROCEDURE I met this patient in the [facility] holding room. I had a discussion with the mahamed ent regarding the procedure, the risks involved, and the alternatives. The patient verbalize d understanding of this and their desire was to proceed with the procedure. Therefore, writt en informed consent was obtained. The patient was lying supine in the bed. The left upper c hest and external portion of the catheter were prepped utilizing chlorahexadine scrubs. The skin and subcutaneous tissues were infiltrated with lidocaine 1%. Sterile drapes were laurent and sterile technique was maintained throughout the procedure. Heparin lock was removed from the dialysis catheter and 0.035 Amplatz guidewire was placed through the venous port. Subs equently, using blunt dissection, the subcutaneous cuff was from the adjacent soft tissues and the catheter was removed over the wire. Hemostasis was obtained with manual pre ssure. The patient tolerated the procedure well and no procedural complications were encoun tered. IMPRESSION Successful removal of left upper chest tunneled dialysis catheter under l ocal anesthesia without incident. Electronically signed by DARRELL Montiel on 013 1:39 PM Patient's old records and labs were reviewed in detail and summarized. PROBLEM LIST Patient Active Problem List Diagnoses Date Noted Hyponatremia 07/11/2012 Bacteremia due to Staphylococcus 07/06/2012 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 Gout 07/06/2012 Chest pain 07/06/2012 Hip pain, bilateral 07/06/2012 Hyperphosphatemia 05/24/2012 Anemia of chronic kidney failure 05/24/2012 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 HTN (hypertension) 04/30/2012 ESRD (end stage renal disease) on dialysis 04/30/2012 Hypokalemia 04/16/2012 Diabetes mellitus with ESRD (end-stage renal disease) 04/14/2012 Obesity (BMI 30-39.9) 04/14/2012 Class: Chronic Hypoalbuminemia 04/11/2012 Hypothyroidism 04/07/2012 Rash and nonspecific skin eruption 04/03/2012 Vitamin d deficiency 04/03/2012 Secondary hyperparathyroidism (of renal origin) 04/03/2012 Type II or unspecified type diabetes mellitus without mention of complication, not stat ed as uncontrolled 04/02/2012 Amphetamine and other psychostimulant dependence, continuous 04/02/2012 ASSESSMENT & PLAN Active Problems: Type II or unspecified type diabetes mellitus without mention of complication, not stated as uncontrolled Hypothyroidism Diabetes mellitus with ESRD (end-stage renal disease) HTN (hypertension) ESRD (end stage renal disease) on dialysis Anemia of chronic kidney failure ESRD 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 Recent superficialization of left brachiocephalic fistula. Blood cultures from the 07/08 are negative. We will continue maintenance hemodialysis Saturday and Saturday. At [facility] HD UNIT UNDER DR COOK BP: Better controlled. Continue low-dose Coreg. Anemia: I would use ANAYA to keep Hb between 10 and 11. Severe anemia with hemoglobin of 5.7 he is of unclear etiology, patient does not give any h istory of bleeding from any sites Will recheck it, if necessary will give during hemodialysis CKD-MBD: Vitamin D deficiency: Secondary hyperparathyroidism: Electrolytes/Acid base balance: Gout: stable Continue PO4 binders (calcium based given hypocalcemia) and PO restricted diet. I would replace K PO to keep between 4 to 4.5 to prevent weakness. For acute gout I would continue allopurinol to prevent further flareup. Hx sepsis with MSSA bacteremia: RONY is negative for endocarditis. He is penicillin allergic and was treated with vancomycin for MSSA bacteremia I thank Dr COLBERT for giving me the opportunity to take part in the care of this patient with multiple complex medical problems Time spend over 70 minutes of time spent evaluating the patient, reviewing the data, formul ating a plan and discussion with patient and hospitalist team, more than half of the time s pent in counseling and coordination of care. SEAN REID MD 08/08/2012 documente d in this encounter ED Notes Conversion Transaction, Provider Unknown - 08/08/2012 4:13 PM PSTFormatting of this note m ight be different from the original. ED Notes by Jessica Cavazos RN at 08/08/121612 Author: Jessica Cavazos RN Service: (none) Author Type: Registered Nurse Filed: 08/08/121613 Date of Service: 08/08/121612 Status: Signed Assembly Worker: Jessica Cavazos RN (Registered Nurse) Pt has meal tray at bedside. Jessica Cavazos RN 08/08/121613 onver quique Transaction, Provider Unknown - 08/08/2012 4:09 PM PST ED Notes by Nahomy Armas RN at 08/08/121608 Author: Nahomy Armas RN Service: (none) Author Type: Registered Nurse Filed: 08/08/121608 Date of Service: 08/08/121608 Status: Signed Assembly Worker: Nahomy Armas RN (Registered Nurse) Lab at for a repeat H and H Nahomy Armas RN 08/08/121608 onver quique Transaction, Provider Unknown - 08/08/2012 4:08 PM PST ED Notes by Nahomy Armas RN at 08/08/12 1608 Author: Nahomy Armas RN Service: (none) Author Type: Registered Nurse Filed: 08/08/12 160 Date of Service: 08/08/121607 Status: Signed Assembly Worker: Nahomy Armas RN (Registered Nurse) Food tray delivered Nahomy Armas RN 08/08/121607 Brady Bone DO - 08/08/2012 12:58 PM PSTFormatting of this note might be different from the or iginal. ED Provider Notes by Brady Canales DO at 08/08/12 1258 Author: Brady Canales DO Service: (none) Author Type: Physician Filed: 08/17/12 2235 Date of Service: 08/08/121257 Status: Signed Assembly Worker: Brady Canales DO (Physician) [facility] Department of Emergency Medicine 12:58 PM 08/08/2012 History of Present Illness Patient Identification Enrique Potter is a 47 y.o. male. Patient information was obtained from patient and EMS personnel. History/Exam limitations: none. Patient presented to the Emergency Department by: Ambulance PCP: [facility] Chief Complaint Chief Complaint Patient presents with Acute Renal Failure pt was at [facility] sent here for dialysis. missed dialysis on saturday and again t . The patient presents to ED with renal failure. Patient was seen at [facility] and transf erred here for dialysis. Patient reports that he has renal failure and last had dialysis abo wa 4 days ago. Although the patient was complaining of dizziness and lightheadedness to the nursing staff, patient currently denies this. Patient does complain of pain at fistula site. Pt denies fever/chills, headache, facial pain, rhinorrhea, sore throat, chest pain, dyspne a, abdominal pain, N/V, appetite changes, skin rash, paresthesias, myalgias/arthralgias, lym phadenopathy, or new bruising. Patients chromosomal disorders counselor is Dr. Cook. Past Medical History Diagnosis Date Hyperlipidemia Hypertension Diabetes mellitus type II Thyroid disease Anemia Abdominal pain, right upper quadrant 04/13/2012 Dialysis patient Chronic kidney disease dialysis GI bleed 04/30/2012 from coumadin Neuromuscular disorder [...] Amphetamine and other psychostimulant dependence, continuous 04/02/2012 Past Surgical History Procedure Date Colonoscopy with egd 05/01/2012 Procedure: COLONOSCOPY W/ EGD; Surgeon: John Singleton MD; Location: [facility] ENDOSCOPY; Se rvice: Gastroenterology; Laterality: N/A; Av fistula placement 05/06/2012 Procedure: AV FISTULA; Surgeon: Oskar Meyer MD; Location: [facility] MAIN OR; Service: Vascul ar; Laterality: Left; Left arm possible right Unlisted procedure arthroscopy shoulder rt , ligaments Knee arthroscopy 07/07/2012 Procedure: KNEE - ARTHROSCOPY; Surgeon: Favio Raza MD; Location: [facility] MAIN OR; chidi: Orthopedics; Laterality: Right; After 1530 Catheter removal 07/07/2012 Procedure: DIALYSIS CATHETER REMOVAL; Surgeon: Oskar Meyer MD; Location: [facility] BEDSIDE GA OCEDURE; Service: General; Laterality: Right; perm cath Dialysis fistula creation 07/07/2012 Procedure: DIALYSIS CATHETER INSERTION; Surgeon: Oskar Meyer MD; Location: [facility] BEDSIDE PROCEDURE; Service: General; Laterality: Left; temporary dialysis catheter Av fistula repair 07/11/2012 Procedure: AV FISTULA GRAFT REPAIR/REVISION; Surgeon: Oskar Meyer MD; Location: [facility] N OR; Service: Vascular; Laterality: Left; Superficialization of brachiobasilic fistula and right IJ perm cath insertion Dialysis fistula creation 07/11/2012 Procedure: DIALYSIS CATHETER INSERTION; Surgeon: Oskar Meyer MD; Location: [facility] MAIN OR; Service: Vascular; Laterality: [...] (six) hours as needed. Yes Historical Provider ALBUTEROL IN Inhale 2 puffs into the lungs daily. Yes Historical Provider allopurinol (ZYLOPRIM) 100 MG tablet Take 1 tablet by mouth daily. 07/13/12 08/12/12 Yes Al Coon, DO amlodipine (NORVASC) 10 MG tablet Take 10 mg by mouth nightly. 04/15/12 04/15/13 Yes Johnathon Colbert MD b complex-vitamin c-folic acid (NEPHRO-THU) 0.8 MG TABS Take 1 tablet by mouth daily. Yes Historical Provider Cholecalciferol (VITAMIN D-3 PO) Take 1 tablet by mouth daily. Yes Historical Provider citalopram (CELEXA) 20 MG tablet Take 20 mg by mouth nightly. Yes Historical Provider ergocalciferol (DRISDOL) 95962 UNITS capsule Take 1 capsule by mouth once a week. 04/15/12 04/15/13 Yes Johnathon Colbert MD fluticasone-salmeterol (ADVAIR DISKUS) 100-50 MCG/DOSE AEPB Inhale 1 puff into the lungs 2 (two) times daily. Yes Historical Provider HYDROcodone-acetaminophen (NORCO) 10-325 MG per tablet Take 1 tablet by mouth every 6 (six) hours as needed. Yes Historical Provider indomethacin (INDOCIN) 25 MG capsule Take 25 mg by mouth 3 (three) times daily with meals. Yes Historical Provider levothyroxine (SYNTHROID, LEVOTHROID) 50 MCG tablet Take 50 mcg by mouth daily. Yes His torical Provider carvedilol (COREG) 3.125 MG tablet Take 1 tablet by mouth 2 (two) times daily with meals. 08/08/12 Al Coon, DO diphenhydrAMINE (BENADRYL) 25 MG tablet Take 25 mg by mouth every 6 (six) hours as needed. 08/08/12 Historical Provider omeprazole (PRILOSEC) 40 MG capsule Take 40 mg by mouth nightly. 05/02/12 08/08/12 Johnathon thompson MD sevelamer (RENVELA) 800 MG tablet Take 1 tablet by mouth 3 (three) times daily with meals. 07/13/12 08/08/12 Al Coon, sodium bicarbonate 650 MG tablet Take 1,300 mg by mouth 2 (two) times daily. 08/08/12 Me storical Provider vancomycin (VANCOCIN) 750 mg/265 mL SOLN Inject 750 mg into the vein See Admin Instructions . After hemodialysis . 07/13/12 08/08/12 Kisha Tello MD Allergies Allergen Reactions Lisinopril Other (See Comments) "makes me sweat and knocked me out" Penicillins Other (See Comments) unknown History Social History Marital Status: Spouse Name: [...] History Narrative , LIVES WITH [employer]; 2 STEP KIDSUNEMPLOYED BEFORE WORKED AT [employer] IN [employer] NONE ETOH QUIT 15 YEARS AGODRUGS: quit METHAMPHETAMINES PER P ATIENT after the ARF in mar 2012FATHER HAS COLON CANCER, HEART DISEASEMOTHER 15 YEARS AGONO FH KIDNEY PROBLEMS. Family History Problem Relation Age of Onset Heart disease Mother Heart disease Father Diabetes Father Cancer Father colon cancer Review of Systems Constitutional: Negative for: fever, chills Eyes: Negative for: decreased vision or irritated eyes Nose: Negative for: nosebleed Throat: Negative for: sore throat or dysphagia Cardiovascular/Respiratory: Negative for: chest pain, shortness of breath, cough Gastrointestinal: Negative for: abdominal pain, nausea/vomiting, diarrhea, constipation, b lack or bloody stools Genitourinary: Negative for: dysuria, hematuria, or increased urinary frequency Musculoskeletal: Negative for: joint pain, myalgias, or restriction of range of motion Skin: Negative for: laceration or lesion Positive for: pain over fistula site Neuro and psych: Negative for: fainting, head injury, seizure Endocrine/Heme/Lymph: Negative for: swollen lymph nodes, easy bruising All other systems were reviewed and are subjectively reported as negative. Physical Exam BP 122/63 | Pulse 83 | Temp(Src) 96.9 F (36.1 C) (Oral) | Resp 24 | Ht 1.702 m (5' 7") | Wt 79.833 kg (176 lb) | BMI 27.57 kg/m2 | SpO2 100% Vitals: tachypneic, otherwise normal. Pulse Oximetry Interpretation: Normal General: Alert, in no acute distress Eyes: Normal inspection, pupils equal and round, non-icteric ENT: Normal inspection Moist mucous membranes, pink appearing Neck: Normal inspection Supple CVS: Rate and rhythm normal No murmurs Respiratory: Breath sounds normal bilaterally, normal chest rise and fall, no obvious traum a Abdomen: Soft, non-tender, non-distended Bowel sounds present No guarding or rebound Back: Moves without difficulty No CVA tenderness Extremities: Moves all extremities Trace pitting edema in bilateral lower extremities Distal pulses palpable in all extremities Thrill auscultated over fistula site Skin: Color normal Warm and dry No rash Neuro: No gross motor/sensory deficits noted Medical Decision Making and Emergency Department Course ED Department Course 1:21 PM. Patient transferred from [facility] due to renal failure. Patient has missed di alysis, and reports that last dialysis was done 4 days ago. After gathering and discussing HPI, ROS, PMHX, SurgHx, FmHx, and physically examining the patient I have discussed differen tial considerations including, but not limited to: renal failure, hyperkalemia, other electr olyte abnormalities, dehydration, infection, vs other. I have also discussed the testing co urse to determine potential etiology and determine whether the patient will be safe for outp atient continuing evaluation or will require admission. Pt indicates understanding of expec gela course of ED evaluation and care. 1:37 PM. Critical results called: HgB 5.7. Will order Type and cross, 4 units. Upon review of the patient s history, physical and the results of studies I believe that the patient warrants admission to the hospital for further evaluation and treatment. I have spoken with the patient regarding the need for admission to the hospital, and the patient h as expressed understanding of this. I will call and arrange for admission at this time. 2:13 PM. Albuterol tx given. 2:19 PM. Discussed case with Dr. Crenshaw, Moving Worker, accepts consult. 2:39 PM. Consult for admission with Dr. Colbert, hospitalist. Agrees to evaluate the pt. 3:20 PM. Calcium gluconate IV given. 3:38 PM. Insulin given IV. Dextrose solution and sodium bicarbonate given IV. 4:[address] Colbert is requesting another H&H. 4:29 PM. Critical labs called, H&H: 5.4. 4:51 PM. Call received from blood bank. Conveyed irradiated blood. 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 States that this is a high risk transfusion and will requ rowdy physician approval via form. I relayed this info to Dr. Colbert who indicates he will addr ess this issue. Records Reviewed Old medical records. Nursing notes. Prior ED visits for similar and unrelated complaints. Laboratory Evaluation Results Procedure Component Value Ref Range Date/Time HGB and HCT [[id number]] (Abnormal) Collected:08/08/12 1609 Order Status:Completed Updated:08/08/12 1623 HGB 5.4 (LL) 13.2 - 17.0 g/dL HCT 17.3 (LL) 39.0 - 50.0 % Complete Metabolic Panel [[id number]] (Abnormal) Collected:08/08/12 1319 Order Status:Completed Updated:08/08/12 1347 Specimen Information:Blood SODIUM 137 135 - 143 mmol/L POTASSIUM 5.0 (H) 3.5 - 4.9 mmol/L CHLORIDE 99 99 - 109 mmol/L CO2 29 23 - 32 mmol/L ANION GAP AGAP 13 5 - 20 mmol/L GLUCOSE 82 65 - 99 mg/dL BUN 52 (H) 8 - 25 mg/dL CREATININE 6.51 (H) 0.70 - 1.30 mg/dL BUN/CREAT 8 CALCIUM 7.4 (L) 8.5 - 10.2 mg/dL TOTAL PROTEIN 6.2 (L) 6.3 - 8.2 g/dL Albumin 1.5 (L) 3.6 - 5.0 g/dL GLOBULIN 4.7 1.3 - 4.9 g/dL A/G 0.3 (L) 1.0 - 2.4 TBIL 0.4 0.1 - 1.5 mg/dL ALK PHOS 113 35 - 115 U/L AST 32 10 - 45 U/L ALT 14 10 - 65 U/L EGFR 10 (L) >60 mL/min/1.73m2 Magnesium [[id number]] Collected:08/08/121318 Order Status:Completed Updated:08/08/121346 Specimen Information:Blood MAGNESIUM 1.9 1.7 - 2.4 mg/dL Phosphorus [[id number]] (Abnormal) Collected:08/08/121318 Order Status:Completed Updated:08/08/121346 Specimen Information:Blood PHOSPHORUS 5.2 (H) 2.3 - 4.8 mg/dL CBC w Auto Diff [[id number]] (Abnormal) Collected:08/08/121318 Order Status:Completed Updated:08/08/121340 Specimen Information:Blood WBC 11.8 (H) 3.8 - 11.0 K/uL RBC 2.09 (L) 4.20 - 5.70 M/uL HGB 5.7 (LL) 13.2 - 17.0 g/dL HCT 17.9 (LL) 39.0 - 50.0 % MCV 85.5 80.0 - 100.0 fl MCH 27.1 27.0 - 34.0 pg MCHC 31.7 (L) 32.0 - 35.5 g/dL RDW SD 53.8 (H) 37 - 53 fl PLT 433 (H) 150 - 400 K/uL MPV 5.6 fl DIFF TYPE AUTOMATED NEUTROPHILS 69.6 40 - 75 % LYMPHOCYTES 6.4 (L) 15 - 48 % MONOCYTES 7.8 0 - 12 % EOSINOPHILS 15.8 (H) 0 - 7 % BASOPHILS 0.4 0 - 2 % NEUTROPHILS ABS 8.2 (H) 1.9 - 7.4 K/uL LYMPHOCYTES ABS 0.8 (L) 1.0 - 3.9 K/uL MONOCYTES ABS 0.9 (H) 0 - 0.8 K/uL EOSINOPHILS ABS 1.9 (H) 0 - 0.5 K/uL BASOPHILS ABS 0.0 0 - 0.1 K/uL Platelet Estimate INCREASED MORPHOLOGY 2+ Radiology and EKG Evaluation Imaging Results None EKG Interpretation: Time: 1309 Rate: 82 Rhythm: Sinus [place]: Nl BASSAM: Nl QRS: Nl ST waves: No elevation or depression Other: T waves do not appear peaked Prior EKG for comparison: 07/06/12 Acute ischemia suggested: No Independently reviewed and interpreted contemporaneously by myself. Brady Canales D.O. Labs and imaging reviewed. All pertinent positives noted and addressed. Results have been discussed with the patient. ED Diagnoses Final diagnoses Hyperkalemia Chronic renal failure Anemia Disposition: ED Disposition Admit/Observation Requested Unit:: Acute Care Bed request special needs: Telemetry Diagnosis?: Anemia requiring transfusion, Hyperkalemia with Chronic renal failure, DDRF Additional Documentation Procedures Attending Note: Documentation assistance provided by Hanna Simon (Scribe). Information recorded by the scribe has been reviewed and validated by me. I ag ree with its contents. DO Brady Estes DO 08/17/12 2235 onversion Transactio n, Provider Unknown - 08/08/2012 12:57 PM PST ED Notes by Jessica Cavazos RN at 08/08/12 1257 Author: Jessica Cavazos RN Service: (none) Author Type: Registered Nurse Filed: 08/08/12 1258 Date of Service: 08/08/12 1257 Status: Signed Assembly Worker: Jessica Cavazos RN (Registered Nurse) Pt states he was feeling dizzy and lightheaded "like I was going to pass out, I knew someth ing was wrong this morning". Jessica Cavazos RN 08/08/12 1258 onver quique Transaction, Provider Unknown - 08/08/2012 12:51 PM PST ED Notes by Jessica Cavazos RN at 08/08/12 1251 Author: Jessica Cavazos RN Service: (none) Author Type: Registered Nurse Filed: 08/08/12 1251 Date of Service: 08/08/12 1251 Status: Signed Assembly Worker: Jessica Cavazos RN (Registered Nurse) Bed:11
Expected date:
Expected time:
Means of arrival:
Comments:
onver quique Transaction, Provider Unknown - 08/08/2012 12:45 PM PST ED Notes by Abbie Townsend RN at 08/08/12 2650 Author: Abbie Townsend RN Service: (none) Author Type: Registered Nurse Filed: 08/08/12 5614 Date of Service: 08/08/121244 Status: Signed Assembly Worker: Abbie Townsend RN (Registered Nurse) Report from [place] [facility] missed dialysis wed and today. Missed vanco this week. 22 guage RFA . 124/75, HR 88, Temp 97.4. Abbie Townsend RN 08/08/12 docume nted in this encounter Plan of Treatment Not on filedocumented as of this encounter Visit Diagnoses + + | Diagnosis | + + | Hyperkalemia Hyperpotassemia | + + | Hypothyroidism Unspecified hypothyroidism | + + | Vitamin D deficiency Unspecified vitamin D deficiency | + + | Gout Gout, unspecified | + + | Amphetamine and other psychostimulant dependence, continuous | + + | Hypoalbuminemia Other disorders of plasma protein metabolism | + + | Rash and nonspecific skin eruption Rash and other nonspecific skin eruption | + + | Chronic renal failure Chronic kidney disease, unspecified | + + | Anemia Anemia, unspecified | + + | Anemia of chronic kidney failure Anemia in chronic kidney disease | + + | HTN (hypertension) Unspecified essential hypertension | + + | Type II or unspecified type diabetes mellitus without mention of complication, not | | stated as uncontrolled | + + | ESRD (end stage renal disease) on dialysis ([facility]) End stage renal disease | + + | 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
--- OUTSIDE RECORDS SUMMARY | ~2020-03-11 | XMS | Encounter Summary ---
Demographics + + + | Address | [address] | | | [place] [address] | + + + | Home Phone [...] Author + + + | Author | On License Of [facility] | + + + | Organization | On License Of [facility] | + + + | Address | [...] Team Providers + +------+ + | Care Flash Welder Name | Role | Phone | + +------+ + | Berenice HicksP | PCP | | + +------+ + Reason for Visit + +--------+ + | Reason | Onset | Comments | | | Date | | + +--------+ + | Evaluation of | 11/10/ | | | response to | 2019 | | | medications | | | + +--------+ + Encounter Details +--------+ + + + + | Date | Type | Department | Care Team | Description | +--------+ + + + + | 11/12/ | Documentati | Kidney Transplant | Chirag Vogel, | Evaluation of | | 2020 | on | at Physician's | PharmD [address] | response to | | | | [address] | [facility] | medications | | | | [address] | [place] [address] | | | | | Physician's | [phone] | | | | | Pavilion, 2nd floor | | | | | | [place], [place] | | | | | | [address] | | | | | | [phone] | | | +--------+ + + + [...] this encounter Miscellaneous Notes Telephone Encounter - Chirag Vogel PharmD - 11/13/2019 9:42 PM PDTPharmacy Services: Pre-T ransplant Medication Reconciliation NO SHOW Enrique Potter is a 54 year old male with a history ofT2DM who is being evaluated for Kid jesus transplantation. The patient s most recent medication information was obtained from [facility] chart A total of 20 minutes were spent reviewing the patient's medications for pre-transplant jemima luation. For any further questions regarding this information contact pharmacy, pager #[phone] Thank you, Chirag Vogel documented in this en counter Plan of Treatment +--------+ + + + [...] 2019 | | | MD [address] | | | | [address] | | | | | | [place], [place] | | | | | | [address] | | | | | | [phone] | | | | | | | [...] [address] | | | | | | [facility], [place] | | | | | | [address] | | | | | | [phone] | | | | | | | | +--------+ + + + + | 03/23/ | Appointment | Radiology | Taiwo Marin | | | 2019 | | | MD Genesis [address] | | | | | | [address] | | | | | | [place], [place] | | | | | | [address] | | | | | | [phone] | | | | | | | | +--------+ + + + + | 03/23/ | Office | Social Work | Lina Rodriguez, | | | 2019 | Visit | | INTERNAL CONTROLS ANALYST [address] | | | | | | [address] | | | | | | [place] | | | | | | [address] | | | | | | [phone] | | +--------+ + + + + | 03/24/ | Telephone-S | Nutrition | Debby Salvador, | | | 2019 | cheduled | | [address] | | | | | | [address] | | | | | | [place] | | | | | | [address] | | | | | | [phone] | | | | | | | | +--------+ + + + + documented as of this encounter Visit Diagnoses Not on filedocumented in this encounter"
--- OUTSIDE RECORDS SUMMARY | ~2020-03-11 | XMS | Encounter Summary ---
Demographics + + + | Address | [address] | | | [place] [address] | + + + | Home Phone | | + + + | Preferred Language | Unknown | + + + | Marital Status | Unknown | + + + | Latter Day Affiliation | [id number] | + + + | Race | or | + + + | Ethnic Group | Not or | + + + Author + + + | Author | [facility] | | | and [place] | + + + | Organization | [facility] | | | and [...] Team Providers + +------+ + | Care Milk Receiver Name | Role | Phone | + +------+ + PCP | Unavailable | + +------+ + Encounter Details +--------+ + + + + | Date | Type | Department | Care Team | Description | +--------+ + + + + | 11/12/ | Orders Only | [facility] | Conversion | | | 2018 | | NEPHROLOGY MAUREENELIZ | Transaction, | | | | | [address] | Provider Unknown | | | | | [address] [place], [place] | | | | | | [address] | (Fax) | | | | | [phone] | | | +--------+ + + + [...]
--- OUTSIDE RECORDS SUMMARY | ~2020-03-11 | XMS | Encounter Summary ---
Demographics + + + | Address | [address] | | | [place] [address] | + + + | Home Phone | | + + + | Preferred Language | Unknown | + + + | Marital Status | Unknown | + + + | Pentecostal Affiliation | [id number] | + + + | Race | or | + + + | Ethnic Group | Not or | + + + Author + + + | Author | [facility] | | | and [place] | + + + | Organization | [facility] | | | [...] Team Providers + +------+ + | Care Trawl Net Maker Name | Role | Phone | + +------+ + PCP | Unavailable | + +------+ + Encounter Details +--------+ + + + + | Date | Type | Department | Care Team | Description | +--------+ + + + + | 04/24/ | Hospital | [facility] | Conversion | ESRD (end stage | | 2011 | Encounter | [facility] | Transaction, | renal disease) ([facility]) | | | | ULTRASOUND [address] | Provider Unknown | | | | | [address] | [phone] | | | | | [place], [place] | | | | | | [address] | Juan Cook MD | | | | | [phone] | [address] | | | | | | [address] [place], [place] | | | | | | [address] | | | | | | | [...] documented as of this encounter Progress Notes Juan Cook - 04/24/2012 12:55 PM PDT Progress Notes by Juan Cook MD at 04/24/12 1259 Author: Juan Cook MD Service: Nephrology Author Type: Physician Filed: 04/24/12 6121 Date of Service: 04/24/12 1256 Status: Signed Supervisor Finishing Department: Juan Cook MD (Physician) [facility] Service: NEPHROLOGY DIALYSIS Note Enrique Tariq 47 y.o. [id number] Room/bed info not found male [facility] Hospital Day: LOS: 0 days SUBJECTIVE Patient seen and examined TODAY IN THE RADIOLOGY DEPT CAME FOR VEIN MAPPING FROM [facility]. SAYS FEEL OK, C/O ITCHY SKIN DENIES CHEST PAIN, SOB, NAUSEA, VOMITING, DIARRHEA, FEVER, CHILLS, RASH, COUGH, HEADACHE DEEPAK HD/ UF WELL ACCESS FUNCTIONING WELL Past Medical History Diagnosis Date Hyperlipidemia Hypertension Diabetes mellitus type II Asthma Thyroid disease Anemia Abdominal pain, right upper quadrant 04/13/2012 Past Surgical History Procedure Date Unlisted procedure arthroscopy No family history on file. History Social History Marital Status: Spouse Name: N/A Number of Children: N/A Years of Education: N/A Occupational History Not on file. Social History Main Topics Smoking status: Never Smoker Smokeless tobacco: Not on file Alcohol Use: No Drug Use: Yes Special: Methamphetamines pt states tried meth 2 days ago Sexually Active: Other Topics Concern Not on file Social History Narrative , LIVES WITH [employer]; KIDSUNEMPLOYED BEFORE WORKED AT [employer] [place] [employer] ETOH QUIT 15 YEARS AGODRUGS: USES METHAMPHETAMINES PER PATIENTF ATHER HAS COLON CANCER, HEART DISEASEMOTHER 15 YEARS AGONO FH KIDNEY PROBLEMS. PMH, PSH, SOCIAL H/O, HABITS, FAMILY H/O- REVIEWED Allergy: Allergies Allergen Reactions Penicillins Other (See Comments) unknown OBJECTIVE Vital Signs: STABLE Examination: Constitutional: Alert and oriented to person, place, and time. Appears well-developed and well-nourished. HEENT: Neck supple, no JVD, non icteric sclera. Cardiovascular: S1+ S2 no friction rub. LUNGS:: Clear breath sounds bilaterally, no wheezes and no rales. RIGHT PERMCATH Abdominal: Soft, non tender on palpation, No distension and no mass. Musculoskeletal: No gross deformity, EXT: B/L LE edema with chronic venous changes. Neurological: No gross focal motor neurologic deficits. Skin: Skin is warm and dry. No rashes, lacerations, erythema or jaundice. Psychiatric: AXOX3, mood and affect ok, memory seems to be intact. LABS: REVIEWED Imaging Ultrasound Upper Extremity Dialysis Mapping Bilateral 04/24/2012 [facility] US UPPER EXTREMITY DIALYSIS MAPPING BILATERAL 04/24/2012 10:49 AM HI STORY: 47 years. Male. End-stage renal disease. TECHNIQUE: A high-resolution grayscale d uplex transducer with color and pulsed Doppler capability was utilized for imaging. Study i s technically hampered by the presence of dressing material obscuring the right side of the neck and right subclavian region. FINDINGS: At the access site of the right IJ central veno us catheter there is adjacent occluding thrombus distally the subclavian vein is not able to be interrogated because of dressing material as previously described. The left internal ju gular vein is normal in appearance as is the a left subclavian vein. RIGHT CEPHALIC VEIN (d iameter/depth) (measurements in millimeters) At Origin: * / * * There is occluding t hrombus proximal portion cephalic vein. Upper Humerus: * / * Mid Humerus: * / * At Elbow: * / * Upper Forearm: 2.7 / 5.2 Mid Forea rm: 2.5 / 5.8 At Wrist: 2.5 / 3.0 RIGHT BASILIC VEIN (diameter/depth) (measurements in millimeters) Upper Humerus: 4.4 / 9.5 Mid Humerus: 3.8 / 9.1 At Elbow: 4.2 / 7.1 Upper Forearm: 2.8 / 5.3 Mid Forearm: 2.7 / 4.8 At Wrist: 3.1 / 4.4 RIG HT ANTECUBITAL VEIN: 6.6 / 4.8 RIGHT BRACHIAL VEIN (diameter/depth) (measurements in millim eters) Upper Humerus: 4.8 / 12.8 Mid Humerus: 4.1 / 16.5 At Elbow: 3.6 / 9.9 RIGHT AXILLARY VEIN: 5.5 / 14.4 RIGHT RADIAL ARTERY: 2.0 / 5.2 RIGHT ULNAR ARTERY: 1.7 / 9 .9 RIGHT BRACHIAL ARTERY: 4.5 / 10.2 RIGHT AXILLARY ARTERY: 6.3 / 13.1 Right Selected Iris ry: Right Selected Vein: --------- LEFT CEPHALIC VEIN (diameter/depth) (measurements in millimeters) At Origin: / Upper Humerus: 3.8 / 7.3 Mid Humerus: * / * At Elbow: 2.5 / 4.7 Upper Forearm: 2.7 / 6.4 Mid Forearm: 2.5 / 7.2 At Wrist: 2.5 / 3.9 LEFT BAS ILIC VEIN (diameter/depth) (measurements in millimeters) Upper Humerus: 4.1 / 10.8 Mid Humerus: 4.1 / 10.6 At Elbow: 4.4 / 8.9 Upper Forearm: 1.9 / 4.1 Mid For earm: 1.9 / 2.1 At Wrist: 1.2 / 5.7 LEFT ANTECUBITAL VEIN: 2.7 / 2.1 LEFT BRACHIAL VE IN (diameter/depth) (measurements in millimeters) Upper Humerus: 4.4 / 14.3 Mid Hu merus: 3.2 / 14.4 At Elbow: 3.3 / 10.0 LEFT AXILLARY VEIN: 6.4 / 11.4 LEFT RADIAL ART SHAHANA: 2.2 / 8.2 LEFT ULNAR ARTERY: 2.1 / 11.8 LEFT BRACHIAL ARTERY: 5.1 / 12.5 LEFT AXILLARY ARTERY: 5.9 / 8.4 Left Selected Artery: Brachial triphasic flow Left Selected Vein: Basi lic IMPRESSION: 1. Upper extremity vein mapping as described above. 2. Occluding thrombus within the right internal jugular vein and in the right cephalic vein down to the level of the elbow. 3. Occluding thrombus in the midportion of the left cephalic vein. This report has been prepared with a voice recognition system. The possibility of "sound alike" trans cription errors, addition and/or deletions may occur. If there is any question about this r eport please contact the originating radiologist. LEM LIST Patient Active Problem List Diagnoses Type II or unspecified type diabetes mellitus without mention of complication, not stat ed as uncontrolled Amphetamine and other psychostimulant dependence, continuous Unspecified asthma Anemia Rash and nonspecific skin eruption Vitamin d deficiency Secondary hyperparathyroidism (of renal origin) Hypothyroidism Hypoalbuminemia MSSA (methicillin susceptible Staphylococcus aureus) infection Diabetes mellitus with ESRD (end-stage renal disease) Hyponatremia Obesity (BMI 30-39.9) Hypokalemia ASSESSMENT & PLAN ESRD ON HD DEEPAK HD WELL CHECK KT/V THIS MONTH TIME INCREASED TO 4 HOURS GOAL KT/V OVER 1.4 HTN CONTROLLED HYPERPHOSPHATEMIA RENAL DIET PHOSLO WITH MEALS HYPOALBUMINEMIA INCREASE PROTEIN INTAKE TOLD TO TAKE 1 SCOOP OF WHEY PROTEIN DAILY ANEMIA OF CKD EPOGEN ON HD TO KEEP HGB 10-11 SECONDARY HYPERPARATHYROIDISM HECTORAL PER PROTOCOL FOR 150-600 RIGHT PERMCATH TODAY GOT VEIN MAPPING FOR AVF PLACEMENT BY DR SOLIMAN RIGHT IJ/ CEPHALIC AND LEFT CEPHALIC VEIN THROMBOSIS REPORT GIVEN GOING TO SEE JANNY PCP AT [facility] FOR ANTICOAGULATION LIKELY DUE TO RIGHT PERMCATH AND HAD LEFT PICC LINE IN THE HOSPITAL NOW REMOVED JUAN COOK MD 04/24/2012 JANNY AYERS, MD SOLIMAN, PATawnyaC [facility] documented in this en counter Plan of Treatment Not on filedocumented as of this encounter Procedures + +--------+ + + + | Procedure Name | Priori | Date/Time | Associated Diagnosis | Comments | | | ty | | | | + +--------+ + + + | VAS ARM BILATERAL | Routin | 04/24/2012 | | Results for this | | MAPPING FOR DIALYSIS | e | 11:56 AM | | procedure are in the | | | | PDT | | results section. | + +--------+ + + + documented in this encounter Results VAS Arm Bilateral Mapping For Dialysis (04/24/2012 11:56 AM PDT) + + | Specimen | + + | | + + + + + | Narrative | Performed At | + + + | [facility] UPPER EXTREMITY DIALYSIS MAPPING BILATERAL 04/24/2012 | | | 10:49 AM HISTORY: 47 years. Male. End-stage renal disease. | | | TECHNIQUE: A high-resolution grayscale duplex transducer with color | | | and pulsed Doppler capability was utilized for imaging. Study is | | | technically hampered by the presence of dressing material obscuring | | | the right side of the neck and right subclavian region. FINDINGS: | | | At the access site of the right IJ central venous catheter there is | | | adjacent occluding thrombus distally the subclavian vein is not able | | | to be interrogated because of dressing material as previously | | | described. The left internal jugular vein is normal in appearance | | | as is the a left subclavian vein. RIGHT CEPHALIC VEIN | | | (diameter/depth) (measurements in millimeters) At Origin: * | | | / * * There is occluding thrombus proximal portion cephalic vein. | | | Upper Humerus: * / * | | | Mid Humerus: * / * At Elbow: * / * Upper | | | Forearm: 2.7 / 5.2 Mid Forearm: 2.5 / 5.8 At Wrist: | | | 2.5 / 3.0 RIGHT BASILIC VEIN (diameter/depth) (measurements in | | | millimeters) Upper Humerus: 4.4 / 9.5 Mid Humerus: 3.8 | | | / 9.1 At Elbow: 4.2 / 7.1 Upper Forearm: 2.8 / 5.3 | | | Mid Forearm: 2.7 / 4.8 At Wrist: 3.1 / 4.4 RIGHT | | | ANTECUBITAL VEIN: 6.6 / 4.8 RIGHT BRACHIAL VEIN (diameter/depth) | | | (measurements in millimeters) Upper Humerus: 4.8 / 12.8 | | | Mid Humerus: 4.1 / 16.5 At Elbow: 3.6 / 9.9 RIGHT | | | AXILLARY VEIN: 5.5 / 14.4 RIGHT RADIAL ARTERY: 2.0 / 5.2 RIGHT | | | ULNAR ARTERY: 1.7 / 9.9 RIGHT BRACHIAL ARTERY: 4.5 / 10.2 RIGHT | | | AXILLARY ARTERY: 6.3 / 13.1 Right Selected Artery: Right | | | Selected Vein: | | | | | | LEFT CEPHALIC VEIN (diameter/depth) (measurements in millimeters) | | | At Origin: / Upper Humerus: 3.8 / 7.3 Mid | | | Humerus: * / * At Elbow: 2.5 / 4.7 Upper Forearm: | | | 2.7 / 6.4 Mid Forearm: 2.5 / 7.2 At Wrist: 2.5 / 3.9 | | | LEFT BASILIC VEIN (diameter/depth) (measurements in millimeters) | | | Upper Humerus: 4.1 / 10.8 Mid Humerus: 4.1 / 10.6 | | | At Elbow: 4.4 / 8.9 Upper Forearm: 1.9 / 4.1 Mid | | | Forearm: 1.9 / 2.1 At Wrist: 1.2 / 5.7 LEFT ANTECUBITAL | | | VEIN: 2.7 / 2.1 LEFT BRACHIAL VEIN (diameter/depth) (measurements | | | in millimeters) Upper Humerus: 4.4 / 14.3 Mid Humerus: | | | 3.2 / 14.4 At Elbow: 3.3 / 10.0 LEFT AXILLARY VEIN: 6.4 | | | / 11.4 LEFT RADIAL ARTERY: 2.2 / 8.2 LEFT ULNAR ARTERY: 2.1 / 11.8 | | | LEFT BRACHIAL ARTERY: 5.1 / 12.5 LEFT AXILLARY ARTERY: 5.9 / 8.4 | | | Left Selected Artery: Brachial triphasic flow Left Selected | | | Vein: Basilic IMPRESSION: 1. Upper extremity vein mapping as | | | described above. 2. Occluding thrombus within the right internal | | | jugular vein and in the right cephalic vein down to the level of the | | | elbow. 3. Occluding thrombus in the midportion of the left cephalic | | | vein. This report has been prepared with a voice recognition | | | system. The possibility of "sound alike" engrosser errors, | | | addition and/or deletions may occur. If there is any question about | | | this report please contact the originating radiologist. | | | | | + + + + + | Procedure Note | + + | Néstor, Rad Conversion - 02/14/2019 4:18 AM PDT [facility] UPPER EXTREMITY DIALYSIS | | MAPPING [id number]/1/2012 10:49 AM HISTORY:47 years. Male. End-stage renal disease. | | TECHNIQUE:A high-resolution grayscale duplex transducer with color and pulsed Doppler | | capability was utilized for imaging. Study is technically hampered by the presence of | | dressing material obscuring the right side of the neck and right subclavian region. | | FINDINGS: At the access site of the right IJ central venous catheter there is adjacent | | occluding thrombus distally the subclavian vein is not able to be interrogated because | | of dressing material as previously described. The left internal jugular vein is normal | | in appearance as is the a left subclavian vein. RIGHT CEPHALIC VEIN (diameter/depth) | | (measurements in millimeters) At Origin: * / * * There is occluding thrombus | | proximal portion cephalic vein. Upper Humerus: * / * | | Mid Humerus: * / * At Elbow: * / * Upper Forearm: 2.7 / 5.2 Mid Forearm: | | 2.5 / 5.8 At Wrist: 2.5 / 3.0 RIGHT BASILIC VEIN (diameter/depth) (measurements in | | millimeters) Upper Humerus: 4.4 / 9.5 Mid Humerus: 3.8 / 9.1 At Elbow: 4.2 / | | 7.1 Upper Forearm: 2.8 / 5.3 Mid Forearm: 2.7 / 4.8 At Wrist: 3.1 / 4.4 | | RIGHT ANTECUBITAL VEIN: 6.6 / 4.8 RIGHT BRACHIAL VEIN (diameter/depth) (measurements in | | millimeters) Upper Humerus: 4.8 / 12.8 Mid Humerus: 4.1 / 16.5 At Elbow: 3.6 | | / 9.9 RIGHT AXILLARY VEIN: 5.5 / 14.4RIGHT RADIAL ARTERY: 2.0 / 5.2RIGHT ULNAR ARTERY: | | 1.7 / 9.9RIGHT BRACHIAL ARTERY: 4.5 / 10.2RIGHT AXILLARY ARTERY: 6.3 / 13.1 Right | | Selected Artery:Right Selected | | Vein: LEFT CEPHALIC | | VEIN (diameter/depth) (measurements in millimeters) At Origin: / Upper | | Humerus: 3.8 / 7.3 Mid Humerus: * / * At Elbow: 2.5 / 4.7 Upper Forearm: | | 2.7 / 6.4 Mid Forearm: 2.5 / 7.2 At Wrist: 2.5 / 3.9 LEFT BASILIC VEIN | | (diameter/depth) (measurements in millimeters) Upper Humerus: 4.1 / 10.8 Mid | | Humerus: 4.1 / 10.6 At Elbow: 4.4 / 8.9 Upper Forearm: 1.9 / 4.1 Mid | | Forearm: 1.9 / 2.1 At Wrist: 1.2 / 5.7 LEFT ANTECUBITAL VEIN: 2.7 / 2.1 LEFT | | BRACHIAL VEIN (diameter/depth) (measurements in millimeters) Upper Humerus: 4.4 / | | 14.3 Mid Humerus: 3.2 / 14.4 At Elbow: 3.3 / 10.0 LEFT AXILLARY VEIN: 6.4 / | | 11.4LEFT RADIAL ARTERY: 2.2 / 8.2LEFT ULNAR ARTERY: 2.1 / 11.8LEFT BRACHIAL ARTERY: 5.1 | | / 12.5LEFT AXILLARY ARTERY: 5.9 / 8.4 Left Selected Artery: Brachial triphasic | | flowLeft Selected Vein: Basilic IMPRESSION:1. Upper extremity vein mapping as | | described above.2. Occluding thrombus within the right internal jugular vein and in the | | right cephalic vein down to the level of the elbow.3. Occluding thrombus in the | | midportion of the left cephalic vein. This report has been prepared with a voice | | recognition system.The possibility of "sound alike" engrosser errors, addition | | and/or deletions may occur. If there is any question about this report please contact | | the originating radiologist. | | 12:28 PM | |RIGHT ULNAR ARTERY: 1.7 / 9.9 | |RIGHT BRACHIAL ARTERY: 4.5 / 10.2 | |RIGHT AXILLARY ARTERY: 6.3 / 13.1 | | | |Right Selected Artery: | |Right Selected Vein: | | | | | |LEFT CEPHALIC VEIN (diameter/depth) (measurements in millimeters) | | At Origin: / | | Upper Humerus: 3.8 / 7.3 | | Mid Humerus: * / * | | At Elbow: 2.5 / 4.7 | | Upper Forearm: 2.7 / 6.4 | | Mid Forearm: 2.5 / 7.2 | | At Wrist: 2.5 / 3.9 | | | |LEFT BASILIC VEIN (diameter/depth) (measurements in millimeters) | | Upper Humerus: 4.1 / 10.8 | | Mid Humerus: 4.1 / 10.6 | | At Elbow: 4.4 / 8.9 | | Upper Forearm: 1.9 / 4.1 | | Mid Forearm: 1.9 / 2.1 | | At Wrist: 1.2 / 5.7 | | | |LEFT ANTECUBITAL VEIN: 2.7 / 2.1 | | | |LEFT BRACHIAL VEIN (diameter/depth) (measurements in millimeters) | | Upper Humerus: 4.4 / 14.3 | | Mid Humerus: 3.2 / 14.4 | | At Elbow: 3.3 / 10.0 | | | |LEFT AXILLARY VEIN: 6.4 / 11.4 | |LEFT RADIAL ARTERY: 2.2 / 8.2 | |LEFT ULNAR ARTERY: 2.1 / 11.8 | |LEFT BRACHIAL ARTERY: 5.1 / 12.5 | |LEFT AXILLARY ARTERY: 5.9 / 8.4 | | | |Left Selected Artery: Brachial triphasic flow | |Left Selected Vein: Basilic | | | |IMPRESSION: | |1. Upper extremity vein mapping as described above. | |2. Occluding thrombus within the right internal jugular vein and in the right cephalic vei n down to the level of the elbow. | |3. Occluding thrombus in the midportion of the left cephalic vein. | | | | | |This report has been prepared with a voice recognition system. | |The possibility of "sound alike" engrosser errors, addition and/or deletions may occur. If there is any question about this report please contact the originating radiologist. | | | | | + + documented in this encounter Visit Diagnoses + + | Diagnosis | + + | ESRD (end stage renal disease) (HCC) End stage renal disease | + + documented in this encounter
--- OUTSIDE RECORDS SUMMARY | ~2020-03-11 | XMS | Encounter Summary ---
Demographics + + + | Address | [address] | | | [place] [address] | + + + | Home Phone [...] + | Author | [facility] | | | and [place] | + + + | Organization | [facility] | | [...] Team Providers + +------+ + | Care Manager Research Name | Role | Phone | + +------+ + | Andry Deng DO | PCP | | + +------+ + Encounter Details +--------+ + + + + | Date | Type | Department | Care Team | Description | +--------+ + + + + | 08/27/ | Orders Only | [facility] | PoiFranklyn MD | | | 2017 | | VASCULAR SURGERY | [address] | | | | | [address] | [address] [place], [place] | | | | | [address] | [address] | | | | | [place], [place] | | | | | | [address] | | | | | | [phone] | | | +--------+ + + + [...] + + | Néstor, Rad Conversion - 02/12/2019 6:42 PM PDT HISTORY: [...]
--- OUTSIDE RECORDS SUMMARY | ~2020-03-11 | XMS | Encounter Summary ---
Demographics + + + | Address | [address] | | | [place] [address] | + + + | Home Phone | | + + + | Preferred Language | Unknown | + + + | Marital Status | Unknown | + + + | Alevism Affiliation | [id number] | + + + | Race | or | + + + | Ethnic Group | Not or | + + + Author + + + | Author | [facility] | | | and [place] | + + + | Organization | [facility] | | | [...] Team Providers + +------+ + | Care Dump Truck Operator Name | Role | Phone | + +------+ + | Andry Deng DO | PCP | | + +------+ + Encounter Details +--------+ + + + + | Date | Type | Department | Care Team | Description | +--------+ + + + + | 04/26/ | Orders Only | [facility] | Conversion | | | 2013 | | INFECTIOUS DISEASE | Transaction, | | | | | [address] | Provider Unknown | | | | | [place], [place] | | | | | | [address] | (Fax) | | | | | [phone] | | | +--------+ + + + [...] +-------+ + + + | Non- | 4.71 | 10 | EXTERNAL | | | Red Blood | | | LAB | | | Cells | | | | | | Counted | | | | | + +-------+ + + + | Hemoglobin | 14.1 | g/dL | EXTERNAL | [...]
--- OUTSIDE RECORDS SUMMARY | ~2020-03-11 | XMS | Encounter Summary ---
Demographics + + + | Address | [address] | | | [place] [address] | + + + | Home Phone | | + + + | Preferred Language | Unknown | + + + | Marital Status | Unknown | + + + | Hinduism Affiliation [...] Team Providers + +------+ + | Care Foundry Supervisor Name | Role | Phone | + +------+ + PCP | Unavailable | + +------+ + Encounter Details +--------+ + + + + | Date | Type | Department | Care Team | Description | +--------+ + + + + | 09/10/ | Hospital | [facility] | Kelvin Marin, | Anemia; | | 2012 - | Encounter | [place] | [address] | Hypoalbuminemia; | | | | CLINICAL DECISION | [place] [address] | ESRD (end stage | | 09/11/ | | [address] | [phone] | renal disease) on | | 2012 | | [place], [place] | | dialysis (HCC); | | | | [address] | | Acute blood loss | | | | [phone] | | anemia; Back pain, | | | | | | acute; | | | | | | Retrolisthesis; | | | | | | Spinal stenosis in | | | | | | cervical region; | | | | | | Type II or | | | | | | unspecified type | | | | | | diabetes mellitus | | | | | | without mention of | | | | | | complication, not | | | | | | stated as | | | | | | uncontrolled (HCC); | | | | | | HTN (hypertension); | | | | | | Anemia of chronic | | | | | | kidney failure | +--------+ + + + + Social [...] documented as of this encounter Discharge Summaries Duyen Dawkins MD - 09/11/2012 5:50 PM PDTFormatting of this note might be diff erent from the original. Discharge Summaries by Duyen Dawkins MD at 09/11/121749 Author: Duyen Dawkins MD Service: (none) Author Type: Physician Filed: 09/11/12 1800 Date of Service: 09/11/121749 Status: Signed Customer Service Technician: Duyen Dawkins MD (Physician) [facility] Service: Hospitalist Discharge Summary Date of Admission: 09/10/2012 Date of Discharge: 09/11/12 Discharge Provider: Duyen Dawkins MD Treatment Team: Consulting Physician: Elizabeth Guzman MD Consulting Physician: Juan Cook MD Admitting Provider: Kelvin Marin MD Discharge Diagnoses: Principal Problem (Resolved): *Anemia due to blood loss Active Problems: Diabetes mellitus with ESRD (end-stage renal disease) Obesity (BMI 30-39.9) HTN (hypertension) ESRD (end stage renal disease) on dialysis Rash and nonspecific skin eruption Hypothyroidism Anemia of chronic kidney failure Procedures: * No surgery found * Significant Diagnostic Studies: Mri Cervical Spine Without Contrast 09/10/2012 HISTORY: Neck and back pain. TECHNIQUE: MRI imaging of the cervical and thoraci c spine was performed on a 1.5 Darlin MRI system. Sagittal T2, T1, stir, T2-3-D images of th e cervical spine with axial T2 GRE and T2 images. Axial, coronal, sagittal MPR reformats. Sagittal T2, T1, stir, and axial T2 weighted images of the thoracic spine. COMPARISON: None . FINDINGS: Cervical spine: There is poor definition of the inferior endplate C6 and superi or endplate C7, with retrolisthesis of the inferior aspect of C6 in relation to C7 of 6 mm. This causes compression of the spinal cord, with severe central stenosis, AP canal diameter 5 -- 6 mm. There appears to be subtle increased signal of the spinal cord, suggesting spin al cord edema. Abnormal widening of the C6 -- 7 interspinous distance, with increased signa l of the posterior ligamentous structures, consistent with ligamentous injury. There also a ppears to be anterior ossific spurring at C6 -- 7, suggesting this may have a chronic compon ent. Correlate clinically. Motion on the axial images limits evaluation. The retropulsion of C6 with loss of vertebral height of C6 and C7 appears to also cause moderate -- severe b ilateral neural foraminal stenosis at C6 -- 7. No further central or neural foraminal steno sis. Thoracic spine: On the sagittal stir images sequence 10 images 9 through 13, there is abnormal increased signal involving the left superior endplates of T6 through T8, with infil trative increased signal extending into the T6 -- 7, T7 -- 8, T8 -- 9 neural foramina. Niranjan ne marrow, disk spaces, and vertebral bodies and spinal cord otherwise appear unremarkable. No central or neural foraminal stenosis in the thoracic spine. IMPRESSION: 1. Retrolisthe sis of C6 in relation to C7 of 6 mm, with compression of the inferior aspect C6 and superior aspect C7, probably chronic. 2. Associated compression of the spinal cord at C6 -- 7 with AP canal diameter 5 -- 6 mm with severe central stenosis, bilateral neural foraminal stenosi s. 3. Subtle signal in the spinal cord at this level, suggesting cord edema. 4. Abnormal w idening of the interspinous distance C6 -- 7 with abnormal increased signal, suggesting liga mentous injury. 5. Edema of the left superior endplate/lateral vertebral bodies T6 -- T8, e xtending into the pedicles, with surrounding increased signal on stir images in the left C6 -- 7 through T8 -- 9 neural foramina. This may be inflammatory. Given the patient's renal failure, MR and CT contrast enhancement is contraindicated. CT evaluation of the cervical a nd thoracic spine may help. Mri Thoracic Spine Without Contrast 09/10/2012 HISTORY: Neck and back pain. TECHNIQUE: MRI imaging of the cervical and thoraci c spine was performed on a 1.5 Darlin MRI system. Sagittal T2, T1, stir, T2-3-D images of th e cervical spine with axial T2 GRE and T2 images. Axial, coronal, sagittal MPR reformats. Sagittal T2, T1, stir, and axial T2 weighted images of the thoracic spine. COMPARISON: None . FINDINGS: Cervical spine: There is poor definition of the inferior endplate C6 and superi or endplate C7, with retrolisthesis of the inferior aspect of C6 in relation to C7 of 6 mm. This causes compression of the spinal cord, with severe central stenosis, AP canal diameter 5 -- 6 mm. There appears to be subtle increased signal of the spinal cord, suggesting spin al cord edema. Abnormal widening of the C6 -- 7 interspinous distance, with increased signa l of the posterior ligamentous structures, consistent with ligamentous injury. There also a ppears to be anterior ossific spurring at C6 -- 7, suggesting this may have a chronic compon ent. Correlate clinically. Motion on the axial images limits evaluation. The retropulsion of C6 with loss of vertebral height of C6 and C7 appears to also cause moderate -- severe b ilateral neural foraminal stenosis at C6 -- 7. No further central or neural foraminal steno sis. Thoracic spine: On the sagittal stir images sequence 10 images 9 through 13, there is abnormal increased signal involving the left superior endplates of T6 through T8, with infil trative increased signal extending into the T6 -- 7, T7 -- 8, T8 -- 9 neural foramina. Niranjan ne marrow, disk spaces, and vertebral bodies and spinal cord otherwise appear unremarkable. No central or neural foraminal stenosis in the thoracic spine. IMPRESSION: 1. Retrolisthe sis of C6 in relation to C7 of 6 mm, with compression of the inferior aspect C6 and superior aspect C7, probably chronic. 2. Associated compression of the spinal cord at C6 -- 7 with AP canal diameter 5 -- 6 mm with severe central stenosis, bilateral neural foraminal stenosi s. 3. Subtle signal in the spinal cord at this level, suggesting cord edema. 4. Abnormal w idening of the interspinous distance C6 -- 7 with abnormal increased signal, suggesting liga mentous injury. 5. Edema of the left superior endplate/lateral vertebral bodies T6 -- T8, e xtending into the pedicles, with surrounding increased signal on stir images in the left C6 -- 7 through T8 -- 9 neural foramina. This may be inflammatory. Given the patient's renal failure, MR and CT contrast enhancement is contraindicated. CT evaluation of the cervical a nd thoracic spine may help. F HISTORY OF PRESENTATION: Enrique Potter is a 47 y.o. male with complicated and extensive medical history including e nd-stage renal disease on hemodialysis, type 2 diabetes and history of chronic anemia. The patient has had numerous blood transfusions in the past, typically hemoglobin dropping down to the mid 5 range, typically has received blood transfusions in the past with hemoglobin levels then returning back to the mid 9 and 10s and then again subsequently decreasing to the mid 5 and [address] Riddle evaluated the patient back in April 2012. He was noted to have nonbleeding gastric ulcers with a negative colonoscopy. Subsequently the patient has been receiving erythropoietin and iron during hemodialysis. Of note, the patient has recently finished IV vancomycin after having MSSA septicemia subsequently related to a left septic arthritis. Also back in June he had a tunnel catheter removed secondary to infection and subsequently had a left brachial basilic fistula placement. He has seen Dr. Tello and recently discontinued antibiotics a few days prior. Today while at hemodialysis he had some bleeding from his left brachial basilic fistula and being that he does have known anemia he was sent to the emergency department for further evaluation. In the emergency department he was again noted to be anemic with a hemoglobin of 6.1. It was felt that Mr. Potter would benefit for further evaluation of his chronic recurrent anemia possibly related to GI sources. As a result he is being admitted for further evaluation.Of note, the patient does, apparently, take indome thacin on a regular basis which he was told previously to discontinue but had not. HOSPITAL COURSE: Patient admittedd, Dr. Zuniga of gastroenterology saw and felt "His anemia is probab ly from multiple factors including chronic gastrointestinal blood loss and acute blood loss from his left arm AV fistula. For his chronic gastrointestinal blood loss the patient has a history of NSAIDS induced gastric ulcers. The patient continued to use indomethacin. At present there is no evidence of active gastrointestinal bleeding. I recommend to stop indomethacin, to avoid using aspirin or NSAIDS in the future" which patient was again advised during this admission and given on his discharge instructions not to do patient got 4 units of PRBC and subsequently discahrged back to to his home with discharge instructions and followup plan a s below. Past Medical History Diagnosis Date Hyperlipidemia Hypertension [...] W/ EGD; Surgeon: John Singleton MD; Location: [facility] ENDOSCOPY; Se rvice: Gastroenterology; Laterality: N/A; Av fistula placement 05/06/2012 Procedure: AV FISTULA; Surgeon: Oskar Meyer MD; Location: [facility] MAIN OR; Service: Vascul ar; Laterality: Left; Left arm possible right Unlisted procedure arthroscopy shoulder rt , ligaments Knee arthroscopy 07/07/2012 Procedure: KNEE - ARTHROSCOPY; Surgeon: Duyen Raza MD; Location: [facility] MAIN OR; S ervice: Orthopedics; Laterality: Right; After 1530 Catheter removal 07/07/2012 Procedure: DIALYSIS CATHETER REMOVAL; Surgeon: Oskar Meyer MD; Location: [facility] BEDSIDE PA OCEDURE; Service: General; Laterality: Right; perm cath Dialysis fistula creation 07/07/2012 Procedure: DIALYSIS CATHETER INSERTION; Surgeon: Oskar Meyer MD; Location: [facility] BEDSIDE PROCEDURE; Service: General; Laterality: Left; temporary dialysis catheter Av fistula repair 07/11/2012 Procedure: AV FISTULA GRAFT REPAIR/REVISION; Surgeon: Oskar Meyer MD; Location: [facility] OR; Service: Vascular; Laterality: Left; Superficialization of brachiobasilic fistula and right IJ perm cath insertion Dialysis fistula creation 07/11/2012 Procedure: DIALYSIS CATHETER INSERTION; Surgeon: Oskar Meyer MD; Location: [facility] MAIN OR; Service: Vascular; Laterality: [...] n every 6 (six) hours as needed. amlodipine (NORVASC) 10 MG tablet Take 10 mg by mouth nightly. b complex-vitamin c-folic acid (NEPHRO-THU) 0.8 MG TABS Take 1 tablet by mouth daily. Cholecalciferol 2000 UNITS TABS Take 1 tablet by mouth daily. citalopram (CELEXA) 20 MG tablet Take 20 mg by mouth nightly. ergocalciferol (DRISDOL) 57318 UNITS capsule Take 1 capsule by mouth once a week. 3 ca psule 0 HYDROcodone-acetaminophen (NORCO) 10-325 MG per tablet Take 1 tablet by mouth every 6 ( six) hours as needed. levothyroxine (SYNTHROID, LEVOTHROID) 50 MCG tablet Take 50 mcg by mouth daily. omeprazole (PRILOSEC) 40 MG capsule Take 40 mg by mouth daily. sevelamer (RENVELA) 800 MG tablet Take 800 mg by mouth 3 (three) times daily with meals . DISCONTD: ALBUTEROL IN Inhale 2 puffs into the lungs daily. DISCONTD: Cholecalciferol (VITAMIN D-3 PO) Take 1 tablet by mouth daily. DISCONTD: indomethacin (INDOCIN) 25 MG capsule Take 25 mg by mouth 3 (three) times yelena y with meals. DISCONTD: indomethacin (INDOCIN) 25 MG capsule Take 25 mg by mouth 3 (three) times yelena y as needed. With meals as needed for pain DISCHARGE EXAM Vital Signs: BP 157/82 | Pulse 92 | Temp(Src) 98.6 F (37 C) (Oral) | Resp 18 | Ht 1.702 m (5' 7") | Wt 73.8 kg (162 lb 11.2 oz) | BMI 25.48 kg/m2 | SpO2 97% Physical Exam Physical Exam Constitutional: Oriented to person, place, [...] of motion.exhibits no tenderness. exhibits no [place] ma left brachiocephalic av fistula not bleeding. Neurological: Alert and oriented to person, place, and time. Has normal reflexes. displays normal reflexes. No cranial nerve deficit. Exhibits normal muscle tone. Coordination normal. Skin: Skin is warm and dry. Rash i had previosuly seen seems to be reolving. No erythema. N o pallor. Psychiatric: Has a normal mood and affect. Behavior is normal. Judgment normal. Disposition: Home Condition: Good Code Status: Full Code Discharge Instructions Diet cardiac Diet diabetic Diet renal Activity as tolerated Call MD for: persistant dizziness or light-headedness Follow up: [facility] [address] [place] [address] in 3 days Juan Cook MD [address] [facility] [address] Call Elizabeth Guzman MD [address] [facility] [address] Call Medication List As of 09/11/2012 5:58 PM CONTINUE taking these medications albuterol (2.5 MG/3ML) 0.083% nebulizer solution Commonly known as: PROVENTIL amlodipine 10 MG tablet Commonly known as: NORVASC b complex-vitamin c-folic acid 0.8 MG Tabs Cholecalciferol 2000 UNITS Tabs citalopram 20 MG tablet Commonly known as: CeleXA ergocalciferol 05266 UNITS capsule Commonly known as: DRISDOL Take 1 capsule by mouth once a week. HYDROcodone-acetaminophen 10-325 MG per tablet Commonly known as: NORCO levothyroxine 50 MCG tablet Commonly known as: SYNTHROID, LEVOTHROID omeprazole 40 MG capsule Commonly known as: PRILOSEC sevelamer 800 MG tablet Commonly known as: RENVELA STOP taking these medications ALBUTEROL IN indomethacin 25 MG capsule An After Visit Summary was printed and given to the patient. Patient verbalized understanding, agreement, and compliance with discharge plan. Discharge took more than 35 minutes, to include final examination, discussion of admission, and preparation of prescriptions, instructions for on-going care, follow-up and documentati on of discharge summary. Duyen Dawkins MD 09/11/2012 documented in this encounter Medications at Time [...] Progress Notes Conversion Transaction, Provider Unknown - 09/11/2012 4:36 PM PDTFormatting of this note m ight be different from the original. Progress Notes by Lolis Pfeiffer RN at 09/11/12 163 Author: Lolis Pfeiffer RN Service: Wound/Ostomy Care Author Type: Registered Nurse Filed: 09/11/12 1643 Date of Service: 09/11/12 1636 Status: Signed Customer Service Technician: Lolis Pfeiffer RN (Registered Nurse) The patient was picked up on the Trigger list for wound care today for Pressure ucler POA t o sacrum. The ulcer was staged as Stage 3 last June and we do not back stage ulcers. Th e ulcer is superficial today measuring 1cmx 1.2cm x 0.1cm. The ulcer was cleansed and cover ed with a Hydrocolloid dressing. The patient was turned lateral and encouraged to stay off of his back while the ulcer heals. Lolis Pfeiffer RN CWOCN Juan Farrar - 09/11/2012 12:00 PM PDTFormatting of this note might be different from the or iginal. Progress Notes by Juan Cook MD at 09/11/12 1200 Author: Juan Cook MD Service: Nephrology Author Type: Physician Filed: 12/17/122032 Date of Service: 09/11/121199 Status: Signed Customer Service Technician: Juan Cook MD (Physician) [facility] Service: NEPHROLOGY dialysis Note Enrique Potter 47 y.o. [id number] 325/325-2 male [facility] Day: LOS: 1 day Enrique Potter is a 47 y.o. male with past medical history of hyperlipidemia, type 2 diabetes, c hronic end-stage renal disease, history of GI bleeding (recently had a colonoscopy and endos copy. Colonoscopy was clean and GI endoscopy showed ulcers without any bleeding, with a daryn n base) and recent admission for anemia secondary to kidney disease (see below) presenting w ith anemia. He was at dialysis today and was only able to get about an hour and a half since the patient and then his fistula infiltrated and he developed severe bleeding. The symptom onset was abrupt, and has had a resolved course. However, he has chronic anemia and was told to come to the ER and get transfused. He also reports severe back pain in the C-spine at C7 and upper T-spine for the past month. The pain is located in the upper back, and is rated a s severe. There is no radiation. The pain is made worse by movement and is relieved by nothi ng. The patient also complains of the following additional symptoms: tingling in his fingers . Care prior to arrival consisted of rest with no relief. patient does apparently take indom ethacin on a regular basis which has been discontinued. Nephrology consulted for evaluation and management of ESRD ONSET CHRONIC severity SEVERE Associated with fluid electrolyte acid base imbalances REQUIRING HD Seen and examined on hd tolerating hd/ uf well Access functioning well Pateint seen and examined Says feel weak but better, seen by dr norma hagen Denies cp, sob, nausea, vomiting, diarrhea, fever, headache, rash, cough, dizziness Past Medical History Diagnosis Date Hyperlipidemia Hypertension [...] W/ EGD; Surgeon: John Singleton MD; Location: [facility] ENDOSCOPY; Se rvice: Gastroenterology; Laterality: N/A; Av fistula placement 05/06/2012 Procedure: AV FISTULA; Surgeon: Oskar Meyer MD; Location: [facility] MAIN OR; Service: Vascul ar; Laterality: Left; Left arm possible right Unlisted procedure arthroscopy shoulder rt , ligaments Knee arthroscopy 07/07/2012 Procedure: KNEE - ARTHROSCOPY; Surgeon: Duyen Raza MD; Location: [facility] MAIN OR; S ervice: Orthopedics; Laterality: Right; After 1530 Catheter removal 07/07/2012 Procedure: DIALYSIS CATHETER REMOVAL; Surgeon: Oskar Meyer MD; Location: [facility] BEDSIDE PA OCEDURE; Service: General; Laterality: Right; perm cath Dialysis fistula creation 07/07/2012 Procedure: DIALYSIS CATHETER INSERTION; Surgeon: Oskar Meyer MD; Location: [facility] BEDSIDE PROCEDURE; Service: General; Laterality: Left; temporary dialysis catheter Av fistula repair 07/11/2012 Procedure: AV FISTULA GRAFT REPAIR/REVISION; Surgeon: Oskar Meyer MD; Location: [facility] OR; Service: Vascular; Laterality: Left; Superficialization of brachiobasilic fistula and right IJ perm cath insertion Dialysis fistula creation 07/11/2012 Procedure: DIALYSIS CATHETER INSERTION; Surgeon: Oskar Meyer MD; Location: [facility] OR; Service: Vascular; Laterality: Left; removed dialysis catheter from left neck and placed new on in left chest, attempted in right neck but unable to place No prescriptions prior to admission Allergies Allergen Reactions Lisinopril Other (See Comments) [...] BIOLOGICAL; 2 STEP KIDSUNEMPLOYED BEFORE WORKED AT [employer] [place] [employer] NONE ETOH QUIT 15 YEARS AGODRUGS: quit METHAMPHETAMINES PER P ATIENT after the ARF in mar 2012FATHER HAS COLON CANCER, HEART DISEASEMOTHER 15 YEARS [facility]ONO [facility] KIDNEY PROBLEMS. Scheduled Medications acetaminophen 650 mg Oral Once amlodipine 10 mg Oral Nightly citalopram 20 mg Oral Nightly diphenhydrAMINE 25 mg Oral Once Or diphenhydrAMINE 25 mg Intravenous Once epoetin alena 20,000 Units Intravenous Once in dialysis heparin (porcine) Intracatheter Once in dialysis insulin aspart 0-3 Units Subcutaneous Nightly insulin aspart 0-6 Units Subcutaneous TID AC levothyroxine 50 mcg Oral QAM AC pantoprazole 40 mg Intravenous Daily sevelamer 800 mg Oral TID WC sodium chloride 10 mL Intravenous Q8H vitamin B ezunvqz-I-dspgj acid 1 tablet Oral Daily with breakfast Continuous Infusions dextrose sodium chloride 30 mL/hr at 09/10/12 2030 PRN Medications acetaminophen, acetaminophen, albumin human, albuterol, dextrose, dextrose, dextrose, diphe nhydrAMINE, glucagon, glucagon, HYDROcodone-acetaminophen, insulin aspart, ondansetron, onda nsetron, polyethylene glycol, zolpidem Allergy: Allergies Allergen Reactions Lisinopril Other (See Comments) "makes me sweat and knocked me out" Penicillins Other (See Comments) unknown OBJECTIVE Vital Signs: BP 157/82 | Pulse 92 | Temp(Src) 98.6 F (37 C) (Oral) | Resp 18 | Ht 1.702 m (5' 7") | Wt 73.8 kg (162 lb 11.2 oz) | BMI 25.48 kg/m2 | SpO2 97% I&O Detailed Table: Weight change: Examination: APPEARANCE: The patient is lying in no apparent distress. VITALS: Reviewed as listed. HEAD: NC/AT. EYES: Non-icteric sclera. +VE PALE [place]JUCT[place] ENT: No oropharyngeal erythema. Buccal mucosa is moist. NECK: Supple. No raised JVD LUNGS: Clear to auscultation bilaterally. HEART: S1, S2, no pericardial rub noted. ABDOMEN: Full, soft, no tenderness. Bowel sounds are present. EXTREMITIES: no pedal edema noted. +VE LA AVF +VE functioning well SKIN: Warm to touch. No rash or ecchymosis noted. NEUROLOGIC: No gross focal motor deficit noted. PSYCH: The patient is alert and oriented x 3, mood and affect looks ok BACK: no CVA tenderness noted LABS: Recent Results (from the past 24 hour(s)) BLOOD CULTURE, SET 1 Collection Time 09/10/12 7:14 PM Component Value Range Specimen Description BLOOD SPECIAL REQUESTS R HAND SPECIAL REQUESTS Value: Testing performed at [facility];[address] [place] [id number] CULTURE NO GROWTH AT THIS TIME CULTURE Value: Testing performed at [facility];[address] [place] [address] REPORT STATUS PENDING BLOOD CULTURE, SET 2 Collection Time 09/10/12 7:44 PM Component Value Range Specimen Description BLOOD SPECIAL REQUESTS R HAND SPECIAL REQUESTS Value: Testing performed at [facility];[address] [place] [id number] CULTURE NO GROWTH AT THIS TIME CULTURE Value: Testing performed at [facility];[address] [place] [id number] REPORT STATUS PENDING POCT GLUCOSE Collection Time 09/10/12 8:45 PM Component Value Range GLUCOSE,POC SCREEN 189 (*) 65 - 99 mg/dL RENAL FUNCTION PANEL Collection Time 09/11/12 5:40 AM Component Value Range SODIUM 136 135 - 143 mmol/L POTASSIUM 5.2 (*) 3.5 - 4.9 mmol/L CHLORIDE 97 (*) 99 - 109 mmol/L CO2 29 23 - 32 mmol/L ANION GAP AGAP 16 5 - 20 mmol/L GLUCOSE 88 65 - 99 mg/dL BUN 43 (*) 8 - 25 mg/dL CREATININE 5.26 (*) 0.70 - 1.30 mg/dL CALCIUM 7.9 (*) 8.5 - 10.2 mg/dL Albumin 1.8 (*) 3.6 - 5.0 g/dL PHOSPHORUS 5.6 (*) 2.3 - 4.8 mg/dL EGFR 12 (*) >60 mL/min/1.73m2 CBC W/AUTO DIFF (REFLEX TO MANUAL) Collection Time 09/11/12 5:40 AM Component Value Range WBC 10.1 3.8 - 11.0 K/uL RBC 2.85 (*) 4.20 - 5.70 M/uL HGB 7.7 (*) 13.2 - 17.0 g/dL HCT 24.2 (*) 39.0 - 50.0 % MCV 84.9 80.0 - 100.0 fl MCH 26.9 (*) 27.0 - 34.0 pg MCHC 31.7 (*) 32.0 - 35.5 g/dL RDW SD 50.8 37 - 53 fl PLT 431 (*) 150 - 400 K/uL MPV 6.4 DIFF TYPE AUTOMATED NEUTROPHILS 75.1 (*) 40 - 75 % LYMPHOCYTES 10.4 (*) 15 - 48 % MONOCYTES 7.6 0 - 12 % EOSINOPHILS 6.4 0 - 7 % BASOPHILS 0.5 0 - 2 % NEUTROPHILS ABS 7.6 (*) 1.9 - 7.4 K/uL LYMPHOCYTES ABS 1.1 1.0 - 3.9 K/uL MONOCYTES ABS 0.8 0 - 0.8 K/uL EOSINOPHILS ABS 0.6 (*) 0 - 0.5 K/uL BASOPHILS ABS 0.0 0 - 0.1 K/uL Platelet Estimate INCREASED MORPHOLOGY 2+ HEMOGLOBIN A1C Collection Time 09/11/12 5:40 AM Component Value Range HEMOGLOBIN A1C UNABLE TO CALCULATE 4.0 - 6.0 % ESTIMATED AVG GLUCOSE UNABLE TO CALCULATE MAGNESIUM Collection Time 09/11/12 5:40 AM Component Value Range MAGNESIUM 2.1 1.7 - 2.4 mg/dL TSH Collection Time 09/11/12 5:40 AM Component Value Range TSH 8.41 (*) 0.45 - 5.10 uIU/mL POCT GLUCOSE Collection Time 09/11/12 5:46 AM Component Value Range GLUCOSE,POC SCREEN 90 65 - 99 mg/dL POCT GLUCOSE Collection Time 09/11/12 10:49 AM Component Value Range GLUCOSE,POC SCREEN 83 65 - 99 mg/dL IMAGING: No results found. Patient's old records and labs were reviewed in detail and summarized. PROBLEM LIST Active Problems: Rash and nonspecific skin eruption Hypothyroidism Diabetes mellitus with ESRD (end-stage renal disease) Obesity (BMI 30-39.9) HTN (hypertension) ESRD (end stage renal disease) on dialysis Anemia of chronic kidney failure ASSESSMENT & PLAN ESRD ON HD Seen and examined on hd tolerating hd/ uf well Access functioning well Orders in the chart Fluid restriction 1 litre/24 hours Strict I & O Daily RFP Renal diet Daily weights will help with subsequent hd with uf Dose all meds per protocol for ESRD on hd ANEMIA OF CKD WORSENING GI CONSULTED DR GARZA TRANSFUSION PER HOSPITALIST The patient presently on NSAIDS and indomethacin which has been discontinued. EPOGEN TO KEEP HGB 10-11 HTN WATCH BP CLOSELY DURING HOSPITALIZATION CONTROLLED DM-2 STRICT GLYCEMIC CONTROL HYPERPHOSPHATEMIA LOW P DIET RENVELA TID WITH MEALS HYPOALBUMINEMIA INCREASE PROTEIN INTAKE History of MSSA septicemia/septic arthritis. Recently finished a 6 week course of IV vancomycin CASE DISCUSSED IN DETAIL WITH PATIENT/ FAMILY/HOSPITALIST, ANSWERS ALL QUESTIONS IN DETAIL, VERBALIZES UNDERSTANDING JUAN COOK MD 09/11/2012 onversion Transactio n, Provider Unknown - 09/11/2012 8:46 AM PDT Progress Notes by Eladio Clinton RN at 09/11/1246 Author: Eladio Clinton RN Service: (none) Author Type: Telecommunications Equipment Installer Filed: 09/11/12 0851 Date of Service: 09/11/12845 Status: Signed Customer Service Technician: Eladio Clinotn RN (Telecommunications Equipment Installer) Case Management: Met with patient to discuss discharge plan. He lives in [place] with his spouse. He gets HD M-W-F. He uses a walker or w/c. PCP is at the [facility] in [facility]. His spouse change his wound dressing. Family to transport. onver quique Transaction, Provider Unknown - 09/11/2012 3:38 AM PDT Progress Notes by Lou Mcclellan RN at 09/11/12 0338 Author: Lou Mcclellan RN Service: (none) Author Type: Registered Nurse Filed: 09/11/12 0342 Date of Service: 09/11/12337 Status: Signed Customer Service Technician: Lou Mcclellan RN (Registered Nurse) Dr. Siddiqi notified of patients positive benito tests, explained risks and benefits to pat ient, Dr. Siddiqi gave the go ahead to transfuse. Pt received 2 units of blood this shift, t olerated well, no adverse side effects thus far. Pt complained of pain x 1, medicated with semi-effective results. Pt has remained NPO since midnight except for sip of water with med . VS stable. Appears comfortable at this time. Will continue to monitor. onver quique Transaction, Provider Unknown - 09/10/2012 8:34 PM PDT Progress Notes by Carmina Lara RPH at 09/10/122033 Author: Carmina Lara RPH Service: (none) Author Type: Pharmacist Filed: 09/10/122033 Date of Service: 09/10/122033 Status: Signed Customer Service Technician: Carmina Lara RPH (Pharmacist) Clinical Pharmacy Note: Renal Monitoring Enrique Potter 47 y.o. male Height: 170.2 cm Weight: 73.8 kg Patient is on hemodialysis. Pharmacy dosing for renal function per Dr. Marin. Currently, there are no medications needing to be adjusted. Pharmacy will continue to monit or for changes in medication orders and adjust accordingly. Carmina Lara PharmOnelia 09/10/2012 8:33 PM docume nted in this encounter H&P Notes Kelvin Marin MD - 09/10/2012 7:01 PM PDTFormatting of this note might be different fr om the original. H&P by Kelvin Marin MD at 09/10/121900 Author: Kelvin Marin MD Service: (none) Author Type: Physician Filed: 09/11/12 1010 Date of Service: 09/10/121900 Status: Signed Customer Service Technician: Kelvin Marin MD (Physician) Related Notes: Original Note by Kelvin Marin MD (Physician) filed at 09/11/12 0717 [facility] Service: Hospitalist Admission History & Physical Date of Admission: 09/10/2012 Requesting Physician: Emergency Department Reason for Admission: Anemia History Obtained From: patient CHIEF COMPLAINT: Anemia HISTORY OF PRESENT ILLNESS The patient is a 47 y.o. male with significant past medical history of Mr. Potter is a 47-year-old male with end-stage renal disease on hemodialysis, type 2 diabetes and history of chronic anemia. The patient has had numerous blood transfusions in the past, typically hemoglobin dropping down to the mid 5 range, typically has received blood transfusions in the past with hemoglobin levels then returning back to the mid 9 and 10s and then again subsequently decreasing to the mid 5 and [address] Riddle evaluated the patient back in April 2012. He was noted to have nonbleeding gastric ulcers with a negative colonoscopy. Subsequently the patient has been receiving erythropoietin and iron during hemodialysis. Of note, the patient has recently finished IV vancomycin after having MSSA septicemia subsequently related to a left septic arthritis. Also back in June he had a tunnel catheter removed secondary to infection and subsequently had a left brachial basilic fistula placement. He has seen Dr. Tello and recently discontinued antibiotics a few days prior. Today while at hemodialysis he had some bleeding from his left brachial basilic fistula and being that he does have known anemia he was sent to the emergency department for further evaluation. In the emergency department he was again noted to be anemic with a hemoglobin of 6.1. It was felt that Mr. Potter would benefit for further evaluation of his chronic recurrent anemia possibly related to GI sources. As a result he is being admitted for further evaluation. Dr. Guzman (gastroenterology) has been consulted and Dr. Cook nephrology has been consulted for hemodialysis. Of note, the patient does, apparently, take indomethacin on a regular basis which has been discontinued. REVIEW OF SYSTEMS Review of Systems Constitutional: Negative for fever, chills and fatigue. Respiratory: Negative for cough and shortness of breath. Cardiovascular: Negative for chest pain and leg swelling. Gastrointestinal: Negative for nausea, diarrhea, blood in stool and abdominal distention. Genitourinary: Negative for hematuria and flank pain. Musculoskeletal: Negative for arthralgias. Skin: Negative for rash. Neurological: Negative for dizziness and numbness. Hematological: Does not bruise/bleed easily. Psychiatric/Behavioral: Negative for confusion. Past Medical History Diagnosis Date Hyperlipidemia Hypertension [...] W/ EGD; Surgeon: John Singleton MD; Location: [facility] ENDOSCOPY; Se rvice: Gastroenterology; Laterality: N/A; Av fistula placement 05/06/2012 Procedure: AV FISTULA; Surgeon: Oskar Meyer MD; Location: [facility] OR; Service: Vascul ar; Laterality: Left; Left arm possible right Unlisted procedure arthroscopy shoulder rt , ligaments Knee arthroscopy 07/07/2012 Procedure: KNEE - ARTHROSCOPY; Surgeon: Duyen Raza MD; Location: [facility] MAIN OR; ervice: Orthopedics; Laterality: Right; After 1530 Catheter removal 07/07/2012 Procedure: DIALYSIS CATHETER REMOVAL; Surgeon: Oskar Meyer MD; Location: [facility] BEDSIDE PA OCEDURE; Service: General; Laterality: Right; perm cath Dialysis fistula creation 07/07/2012 Procedure: DIALYSIS CATHETER INSERTION; Surgeon: Oskar Meyer MD; Location: [facility] BEDSIDE PROCEDURE; Service: General; Laterality: Left; temporary dialysis catheter Av fistula repair 07/11/2012 Procedure: AV FISTULA GRAFT REPAIR/REVISION; Surgeon: Oskar Meyer MD; Location: [facility]; Service: Vascular; Laterality: Left; Superficialization of brachiobasilic fistula and right IJ perm cath insertion Dialysis fistula creation 07/11/2012 Procedure: DIALYSIS CATHETER INSERTION; Surgeon: Oskar Meyer MD; Location: [facility] OR; Service: Vascular; Laterality: Left; removed dialysis catheter from left neck and placed new on in left chest, attempted in right neck but unable to place Immunizations: Allergies Allergen Reactions Lisinopril Other (See Comments) "makes me sweat and knocked me out" Penicillins Other (See Comments) unknown (Not in a hospital admission) Family History [...] BIOLOGICAL; 2 STEP KIDSUNEMPLOYED BEFORE WORKED AT [employer] IN [place] NONE ETOH QUIT 15 YEARS AGODRUGS: quit METHAMPHETAMINES PER P ATIENT after the ARF in mar 2012FATHER HAS COLON CANCER, HEART DISEASEMOTHER 15 YEARS AGONO FH KIDNEY PROBLEMS. PHYSICAL EXAM Vital Signs: BP 101/53 | Pulse 91 | Temp(Src) 97.5 F (36.4 C) (Oral) | Resp 18 | Ht 1.702 m (5' 7") | Wt 74.481 kg (164 lb 3.2 oz) | BMI 25.72 kg/m2 | SpO2 96% Physical Exam Constitutional: He appears well-developed and well-nourished. Eyes: Pupils are equal, round, and reactive to light. Neck: No JVD present. Cardiovascular: Normal rate and regular rhythm. Pulmonary/Chest: Effort normal and breath sounds normal. Abdominal: Soft. Bowel sounds are normal. There is no tenderness. Musculoskeletal: He exhibits no edema. Lt brachio basilic fistula Neurological: He is alert. Skin: He is not diaphoretic. DATA CBC: Lab Results Component Value Date WBC 6.9 09/10/2012 RBC 2.36* 09/10/2012 HGB 6.1* 09/10/2012 HCT 19.5* 09/10/2012 MCV 82.4 09/10/2012 MCH 26.0* 09/10/2012 MCHC 31.5* 09/10/2012 RDW 51.6 09/10/2012 PLT 504* 09/10/2012 MPV 6.2 09/10/2012 DIFFTYPE AUTOMATED 09/10/2012 WBC: Lab Results Component Value Date WBC 6.9 09/10/2012 NEUTABSMAN 19.7* 07/06/2012 NEUTROABS 4.9 09/10/2012 NEUTROMAN 84* 07/06/2012 LYMPHOABS 1.4 07/06/2012 LYMPHOMAN 6* 07/06/2012 LYMPHSABS 0.9* 09/10/2012 LYMPHOPCT 13.3* 09/10/2012 MONOABSMAN 1.2* 07/06/2012 MONOMAN 5 07/06/2012 MONOPCT 7.1 09/10/2012 EOSINOABS 0.2 07/06/2012 EOSINOMAN 1 07/06/2012 EOSABS 0.6* 09/10/2012 EOSPCT 8.3* 09/10/2012 BASOABSMAN 0.1 05/01/2012 BASOSABS 0.0 09/10/2012 BASOSMAN 1 05/01/2012 BASOPCT 0.6 09/10/2012 PLTEST INCREASED 09/10/2012 BANDSPCT 2 07/06/2012 NRBC 1* 05/02/2012 METAABS 0.5* 07/06/2012 METAPCT 2* 07/06/2012 COMDIFF SLIDE SCANNED, AGREES WITH AUTOMATED RESULTS. 07/08/2012 PROBLEM LIST Active Problems: * No active hospital problems. * ASSESSMENT & PLAN 1. Normocytic anemia (acute on chronic). Long history of recurrent anemia with numerous blood transfusions required. Past endoscopic evaluation done by Dr. Riddle back in April 2012 noted to have nonbleeding ulcers. The patient presently on NSAIDS and indomethacin which has been discontinued. A concern for possible continue gastrointestinal blood loss the patient will be started IV PPI and n.p.o. after midnight for possible esophagogastroduodenoscopy in the morning by Dr. Guzman. Blood 2 units have been ordered and an iron panel has also been ordered. 2. End-stage renal disease. We will continue hemodialysis as per Dr. Cook. 3. History of MSSA septicemia/septic arthritis. Recently finished a 6 week course of IV vancomycin. No recurrence of infection seen noted clinically. I did speak with Dr. Tello. We will repeat blood cultures as per note and would reconsult infectious disease for any new infectious concerns including positive blood cultures. Of note, the patient has been complaining of cervical neck pain for approximately 2 weeks. Emergency department physician has ordered a magnetic resonance imaging of the neck which is pending to rule out diskitis. 4. Type 2 diabetes. We will start insulin sliding scale. 5. History of hypothyroidism. Continue current medications. We will check TSH. 6. Deep venous thrombosis prophylaxis. We will use mechanical SCD, subcutaneous anticoagulation contraindicated due to possible ongoing gastrointestinal blood loss. Disposition: Admission Code Status: Prior Primary Care Physician: [facility] Kelvin Marin MD 09/10/2012 documented in this encounter Consult Notes Juan Cook - 09/10/2012 7:09 PM PDT Consult* by Juan Cook MD at 09/10/121908 Author: Juan Cook MD Service: Nephrology Author Type: Physician Filed: 12/17/122013 Date of Service: 09/10/121908 Status: Signed Customer Service Technician: Juan Cook MD (Physician) [facility] Service: NEPHROLOGY CONSULT Note Enrique Potter 47 y.o. [id number] 04/[address] 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 male with past medical history of hyperlipidemia, type 2 diabetes, c hronic end-stage renal disease, history of GI bleeding (recently had a colonoscopy and endos copy. Colonoscopy was clean and GI endoscopy showed ulcers without any bleeding, with a daryn n base) and recent admission for anemia secondary to kidney disease (see below) presenting w ith anemia. He was at dialysis today and was only able to get about an hour and a half since the patient and then his fistula infiltrated and he developed severe bleeding. The symptom onset was abrupt, and has had a resolved course. However, he has chronic anemia and was told to come to the ER and get transfused. He also reports severe back pain in the C-spine at C7 and upper T-spine for the past month. The pain is located in the upper back, and is rated a s severe. There is no radiation. The pain is made worse by movement and is relieved by nothi ng. The patient also complains of the following additional symptoms: tingling in his fingers . Care prior to arrival consisted of rest with no relief. patient does apparently take indom ethacin on a regular basis which has been discontinued. Nephrology consulted for evaluation and management of ESRD ONSET CHRONIC severity SEVERE Associated with fluid electrolyte acid base imbalances REQUIRING HD ROS: General: Denies fever, chills, sweats, anorexia, +ve fatigue, weakness. Cardiovascular: Denies leg swelling, SOB, chest pain, palpitations. HEENT: Denies recent hearing or visual loss, sore throat or swallowing difficulties, Ear ac he/discharge, sinus problems and oral thrush. Respiratory: Denies chronic cough, hemoptysis, and wheezing. GI: Denies nausea, vomiting, diarrhea, melena, and hematemesis, abdominal pain. : Denies burning with urination, blood in urine, foamy urine, urinary frequency, urinary hesitancy, urinary urgency, nocturia, and incontinence. Musculoskeletal: +VE BACK PAIN Denies recent joint pain or swelling, muscle aches. Extremities: Denies swelling in legs or feet. Derm: Denies rash, itching, purpura and ecchymosis. Neuro: +VE tingling in his fingers Denies dizziness, lightheadedness, tremors, stroke or fr equent headaches. Psych: Denies history of anxiety or depression, hallucinations, delusions. ALLERGY: Denies hay fever. HEME: +ve anemia of ckd worsening. ENDOCRINE: +ve DM, Thyroid problems heat or cold intolerance, Hyperlipidemia. Rest of the ROS negative. Past Medical History Diagnosis Date Hyperlipidemia [...] W/ EGD; Surgeon: John Singleton MD; Location: [facility] ENDOSCOPY; rvice: Gastroenterology; Laterality: N/A; Av fistula placement 05/06/2012 Procedure: AV FISTULA; Surgeon: Oskar Meyer MD; Location: [facility] MAIN OR; Service: Vascul ar; Laterality: Left; Left arm possible right Unlisted procedure arthroscopy shoulder rt , ligaments Knee arthroscopy 07/07/2012 Procedure: KNEE - ARTHROSCOPY; Surgeon: Duyen Raza MD; Location: [facility] MAIN OR; er: Orthopedics; Laterality: Right; After 1530 Catheter removal 07/07/2012 Procedure: DIALYSIS CATHETER REMOVAL; Surgeon: Oskar Meyer MD; Location: [facility] BEDSIDE PA OCEDURE; Service: General; Laterality: Right; perm cath Dialysis fistula creation 07/07/2012 Procedure: DIALYSIS CATHETER INSERTION; Surgeon: Oskar Meyer MD; Location: [facility] BEDSIDE PROCEDURE; Service: General; Laterality: Left; temporary dialysis catheter Av fistula repair 07/11/2012 Procedure: AV FISTULA GRAFT REPAIR/REVISION; Surgeon: Oskar Meyer MD; Location: [facility]; Service: Vascular; Laterality: Left; Superficialization of brachiobasilic fistula and right IJ perm cath insertion Dialysis fistula creation 07/11/2012 Procedure: DIALYSIS CATHETER INSERTION; Surgeon: Oskar Meyer MD; Location: [facility] MAIN OR; Service: Vascular; Laterality: [...] BIOLOGICAL; 2 STEP KIDSUNEMPLOYED BEFORE WORKED AT [employer] IN [place] NONE ETOH QUIT 15 YEARS AGODRUGS: quit METHAMPHETAMINES PER P ATIENT after the ARF in mar 2012FATHER HAS COLON CANCER, HEART DISEASEMOTHER 15 YEARS AGONO FH KIDNEY PROBLEMS. Scheduled Medications sodium chloride 10 mL Intravenous Q8H Continuous Infusions PRN Medications Allergy: Allergies Allergen Reactions Lisinopril Other (See Comments) "makes me sweat and knocked me out" Penicillins Other (See Comments) unknown OBJECTIVE Vital Signs: BP 123/62 | Pulse 89 | Temp(Src) 99.1 F (37.3 C) (Oral) | Resp 16 | Ht 1.702 m (5' 7") | Wt 74.481 kg (164 lb 3.2 oz) | BMI 25.72 kg/m2 | SpO2 96% I&O Detailed Table: Weight change: Examination: APPEARANCE: The patient is a pleasant sitting in no apparent distress. VITALS: Reviewed as listed. HEAD: NC/AT. EYES: PERRLA. EOMI. Non-icteric sclera. +VE PALE CONJUCTICA ENT: No oropharyngeal erythema. Buccal mucosa is moist. No gross ear or nasal prob lems noted. NECK: Supple. No raised JVD or thyromegaly. LYMPHATIC: No palpable lymphadenopathy. LUNGS: Clear to auscultation bilaterally. HEART: S1, S2, no pericardial rub noted. ABDOMEN: Full, soft, no tenderness. Bowel sounds are present. No organomegaly or bruit s noted. EXTREMITIES: no pedal edema noted. No cyanosis or clubbing. Peripheral pulses palpable. +VE LA AVF +VE THRILL/BRUIT SKIN: Warm to touch. No rash or ecchymosis noted. NEUROLOGIC: No gross focal motor deficit noted. PSYCH: The patient is alert and oriented x 3, mood and affect looks ok, memory seems to be intact. BACK: no CVA tenderness noted LABS: Recent Results (from the past 24 hour(s)) CBC W/AUTO DIFF (REFLEX TO MANUAL) Collection Time 09/10/12 4:50 PM Component Value Range WBC 6.9 3.8 - 11.0 K/uL RBC 2.36 (*) 4.20 - 5.70 M/uL HGB 6.1 (*) 13.2 - 17.0 g/dL HCT 19.5 (*) 39.0 - 50.0 % MCV 82.4 80.0 - 100.0 fl MCH 26.0 (*) 27.0 - 34.0 pg MCHC 31.5 (*) 32.0 - 35.5 g/dL RDW SD 51.6 37 - 53 fl PLT 504 (*) 150 - 400 K/uL MPV 6.2 DIFF TYPE AUTOMATED NEUTROPHILS 70.7 40 - 75 % LYMPHOCYTES 13.3 (*) 15 - 48 % MONOCYTES 7.1 0 - 12 % EOSINOPHILS 8.3 (*) 0 - 7 % BASOPHILS 0.6 0 - 2 % NEUTROPHILS ABS 4.9 1.9 - 7.4 K/uL LYMPHOCYTES ABS 0.9 (*) 1.0 - 3.9 K/uL MONOCYTES ABS 0.5 0 - 0.8 K/uL EOSINOPHILS ABS 0.6 (*) 0 - 0.5 K/uL BASOPHILS ABS 0.0 0 - 0.1 K/uL Platelet Estimate INCREASED MORPHOLOGY 2+ COMPREHENSIVE METABOLIC PANEL Collection Time 09/10/12 4:50 PM Component Value Range SODIUM 137 135 - 143 mmol/L POTASSIUM 4.1 3.5 - 4.9 mmol/L CHLORIDE 95 (*) 99 - 109 mmol/L CO2 32 23 - 32 mmol/L ANION GAP AGAP 14 5 - 20 mmol/L GLUCOSE 163 (*) 65 - 99 mg/dL BUN 30 (*) 8 - 25 mg/dL CREATININE 4.55 (*) 0.70 - 1.30 mg/dL BUN/CREAT 7 CALCIUM 7.7 (*) 8.5 - 10.2 mg/dL TOTAL PROTEIN 8.0 6.3 - 8.2 g/dL Albumin 1.8 (*) 3.6 - 5.0 g/dL GLOBULIN 6.2 (*) 1.3 - 4.9 g/dL A/G 0.3 (*) 1.0 - 2.4 TBIL 0.3 0.1 - 1.5 mg/dL ALK PHOS 124 (*) 35 - 115 U/L AST 22 10 - 45 U/L ALT 19 10 - 65 U/L EGFR 15 (*) >60 mL/min/1.73m2 AMYLASE Collection Time 09/10/12 4:50 PM Component Value Range AMYLASE 53 25 - 115 U/L LIPASE Collection Time 09/10/12 4:50 PM Component Value Range LIPASE 81 73 - 393 U/L PROTIME-INR Collection Time 09/10/12 4:50 PM Component Value Range INR 1.1 0.9 - 3.5 APTT Collection Time 09/10/12 4:50 PM Component Value Range APTT 33 (*) 23 - 32 seconds PREPARE RBC (TYPE AND CROSSMATCH) (BLOOD BANK) Collection Time 09/10/12 4:50 PM Component Value Range ARM BAND NUMBER [id number] ARM BAND NUMBER Value: Testing performed at [facility] [facility];[place] [address] ABO/RH(D) O POSITIVE ABO/RH(D) Value: Testing performed at [facility];[address] [place] [address] ANTIBODY SCREEN PENDING IMAGING: Reviewed MRI SPINE 09/10/12 IMPRESSION: 1. Retrolisthesis of C6 in relation to C7 of 6 mm, with compression of the inferior aspect C6 and superior aspect C7, probably chronic. 2. Associated compression of the spinal cord at C6 -- 7 with AP canal diameter 5 -- 6 mm wi th severe central stenosis, bilateral neural foraminal stenosis. 3. Subtle signal in the spinal cord at this level, suggesting cord edema. 4. Abnormal widening of the interspinous distance C6 -- 7 with abnormal increased signal, s uggesting ligamentous injury. 5. Edema of the left superior endplate/lateral vertebral bodies T6 -- T8, extending into th e pedicles, with surrounding increased signal on stir images in the left C6 -- 7 through T8 -- 9 neural foramina. This may be inflammatory. Given the patient's renal failure, MR and CT contrast enhancement is contraindicated. CT evaluation of the cervical and thoracic spine m ay help. Patient's old records and labs were reviewed in detail and summarized. PROBLEM LIST Active Problems: Hypothyroidism Diabetes mellitus with ESRD (end-stage renal disease) Obesity (BMI 30-39.9) HTN (hypertension) ESRD (end stage renal disease) on dialysis Anemia of chronic kidney failure ASSESSMENT & PLAN ESRD ON HD No need for hd today Assess daily for need for hd & uf hd/ uf in am Orders put in the chart Fluid restriction 1 litre/24 hours Strict I & O Daily RFP Renal diet Daily weights will help with subsequent hd with uf Dose all meds per protocol for ESRD on hd ANEMIA OF CKD WORSENING R.O GI BLEED PER HOSPITALIST GI CONSULTED DR GARZA TRANSFUSION PER HOSPITALIST The patient presently on NSAIDS and indomethacin which has been discontinued. EPOGEN TO KEEP HGB 10-11 HTN WATCH BP CLOSELY DURING HOSPITALIZATION RESUME HOME BP MEDS DM-2 STRICT GLYCEMIC CONTROL HYPERPHOSPHATEMIA LOW P DIET RESUME PO4 BINDERS HYPOALBUMINEMIA INCREASE PROTEIN INTAKE History of MSSA septicemia/septic arthritis. Recently finished a 6 week course of IV vancomycin CASE DISCUSSED IN DETAIL WITH PATIENT/ FAMILY/HOSPITALIST, ANSWERS ALL QUESTIONS IN DETAIL, VERBALIZES UNDERSTANDING I thank Dr MARIN for giving me the opportunity to take part in the care of this karolina mahamed ent with multiple complex medical problems JUAN COOK MD 09/10/2012 ikhail Guzman - 09/10/2012 6:59 PM PDT Consult* by Elizabeth Guzman MD at 09/10/121858 Author: Elizabeth Guzman MD Service: Gastroenterology Author Type: Physician Filed: 09/11/12 9133 Date of Service: 09/10/121858 Status: Signed Customer Service Technician: Elizabeth Guzman MD (Physician) Related Notes: Original Note by Elizabeth Guzman MD (Physician) filed at 09/10/12 1 954 [facility] Service: Gastroenterology Initial Consult Note Date of Admission: 09/10/2012 Reason for Consultation: Anemia Requesting Physician: Dr. Choudhary, Emergency Department History Obtained From: patient, chart review CHIEF COMPLAINT: Anemia HISTORY OF PRESENT ILLNESS The patient is a 47 y.o. male with significant past medical history of End-stage renal dise ase, diabetes, hypertension, history of GI bleeding in April 2012. The patient had bleeding from AV fistula during dialysis. The patient was then brought to [facility] Emergency Department. He was found to have anemia. He was admitted for further evaluation. The patient denied having nausea, vomiting, heart burn, abdominal pain. He had 2 bowel movements a day. He had brown colored stool. The patient was admitted in April 2012 for rectal bleeding. The patient had an EGD and colonoscopy done by Dr. Singleton. His EGD showed the patient had a hiatal hernia and 4 gastric ulcers. Biopsy of the stomach was negative for Helicobacter pylori. His colonoscopy showed sigmoid diverticulosis and internal hemorrhoids. The patient continued to take indomethacin 25 mg three times a day as needed for his neck pain. He also is taking omeprazole 40 mg once a day. Other medications including cholecalciferol 2000 units once a day, levothyroxine 50 mg once a day, citalopram 20 mg once a day, amlodipine 10 mg once a day, ergocalciferol 50,000 units once a day and Renvela 800 mg three times a day. REVIEW OF SYSTEMS Review of Systems Constitutional: Negative for fever, chills, appetite change and fatigue. HENT: Negative for ear pain, facial swelling and neck pain. Eyes: Negative for discharge and itching. Respiratory: Negative for cough and shortness of breath. Cardiovascular: Negative for chest pain and palpitations. Gastrointestinal: See H&P Genitourinary: Negative for dysuria, hematuria and difficulty urinating. Musculoskeletal: Negative for back pain and arthralgias. Skin: Negative for color change and rash. Neurological: Negative for dizziness, weakness and headaches. Hematological: Negative for adenopathy. Does not bruise/bleed easily. Psychiatric/Behavioral: Negative for confusion and agitation. Past Medical History Diagnosis Date Hyperlipidemia Hypertension [...] W/ EGD; Surgeon: John Singleton MD; Location: [facility] ENDOSCOPY; Se rvice: Gastroenterology; Laterality: N/A; Av fistula placement 05/06/2012 Procedure: AV FISTULA; Surgeon: Oskar Meyer MD; Location: [facility] MAIN OR; Service: Vascul ar; Laterality: Left; Left arm possible right Unlisted procedure arthroscopy shoulder rt , ligaments Knee arthroscopy 07/07/2012 Procedure: KNEE - ARTHROSCOPY; Surgeon: Duyen Raza MD; Location: [facility] MAIN OR; [facility]: Orthopedics; Laterality: Right; After 1530 Catheter removal 07/07/2012 Procedure: DIALYSIS CATHETER REMOVAL; Surgeon: Oskar Meyer MD; Location: [facility] BEDSIDE PA OCEDURE; Service: General; Laterality: Right; perm cath Dialysis fistula creation 07/07/2012 Procedure: DIALYSIS CATHETER INSERTION; Surgeon: Oskar Meyer MD; Location: [facility] BEDSIDE PROCEDURE; Service: General; Laterality: Left; temporary dialysis catheter Av fistula repair 07/11/2012 Procedure: AV FISTULA GRAFT REPAIR/REVISION; Surgeon: Oskar Meyer MD; Location: [facility] OR; Service: Vascular; Laterality: Left; Superficialization of brachiobasilic fistula and right IJ perm cath insertion Dialysis fistula creation 07/11/2012 Procedure: DIALYSIS CATHETER INSERTION; Surgeon: Oskar Meyer MD; Location: [facility] MAIN OR; Service: Vascular; Laterality: Left; removed dialysis catheter from left neck and placed new on in left chest, attempted in right neck but unable to place Allergies Allergen Reactions Lisinopril Other (See Comments) "makes me sweat and knocked me out" Penicillins Other (See Comments) unknown (Not in a hospital admission) Scheduled Medications sodium chloride 10 mL Intravenous Q8H Continuous Infusions PRN Medications Family History Problem Relation Age of Onset Heart disease Mother Heart disease Father Diabetes Father Cancer Father colon cancer History Smoking status Never Smoker Smokeless tobacco Never Used History Alcohol Use No PHYSICAL EXAM Vital Signs: BP 101/53 | Pulse 91 | Temp(Src) 97.5 F (36.4 C) (Oral) | Resp 18 | Ht 1.702 m (5' 7") | Wt 74.481 kg (164 lb 3.2 oz) | BMI 25.72 kg/m2 | SpO2 96% Physical Exam Constitutional: He is oriented to person, place, and time. He appears well-developed and we ll-nourished. HENT: Head: Normocephalic and atraumatic. Nose: Nose normal. Mouth/Throat: Uvula is midline, oropharynx is clear and moist and mucous membranes are norm al. Eyes: Conjunctivae and lids are normal. Neck: Trachea normal. No JVD present. No thyromegaly present. Cardiovascular: Normal rate, regular rhythm, S1 normal and S2 normal. No murmur heard. Abdominal: Soft. Normal appearance and bowel sounds are normal. There is no splenomegaly or hepatomegaly. There is no tenderness. Musculoskeletal: Normal range of motion. Right shoulder: He exhibits no deformity. AV fistula in his left arm with red blood on the gauze. Lymphadenopathy: He has no cervical adenopathy. He has no axillary adenopathy. Neurological: He is alert and oriented to person, place, and time. He has normal strength. Skin: Skin is warm, dry and intact. Psychiatric: He has a normal mood and affect. His speech is normal and behavior is normal. Thought content normal. DATA CBC: Lab Results Component Value Date WBC 6.9 09/10/2012 RBC 2.36* 09/10/2012 HGB 6.1* 09/10/2012 HCT 19.5* 09/10/2012 MCV 82.4 09/10/2012 MCH 26.0* 09/10/2012 MCHC 31.5* 09/10/2012 RDW 51.6 09/10/2012 PLT 504* 09/10/2012 MPV 6.2 09/10/2012 DIFFTYPE AUTOMATED 09/10/2012 CMP: Lab Results Component Value Date NA 137 09/10/2012 K 4.1 09/10/2012 CL 95* 09/10/2012 CO2 32 09/10/2012 ANIONGAP 14 09/10/2012 GLUF 163* 09/10/2012 BUN 30* 09/10/2012 CREATININE 4.55* 09/10/2012 BCR 7 09/10/2012 CA 7.7* 09/10/2012 CA 6.1* 04/02/2012 PROT 8.0 09/10/2012 ALB 1.8* 09/10/2012 GLOB 6.2* 09/10/2012 BILITOT 0.3 09/10/2012 ALP 124* 09/10/2012 AST 22 09/10/2012 ALT 19 09/10/2012 EGFR 15* 09/10/2012 PT/INR: Lab Results Component Value Date INR 1.1 09/10/2012 Results for ENRIQUE POTTER ( ) as of 09/10/2012 19:51 Ref. Range 08/09/2012 05:15 HGB Latest Range: 13.2-17.0 g/dL 9.5 (L) HCT Latest Range: 39.0-50.0 % 29.8 (L) PROBLEM LIST Active Problems: * No active hospital problems. * ASSESSMENT & PLAN This is a 47-year-old man with history of end-stage renal disease, NSAIDS induced gastric ulcer and sigmoid diverticulosis presented with bleeding from his AV fistula in the left arm and found to have severe anemia. 1. Severe anemia. His anemia is probably from multiple factors including chronic gastrointestinal blood loss and acute blood loss from his left arm AV fistula. For his chronic gastrointestinal blood loss the patient has a history of NSAIDS induced gastric ulcers. The patient continued to use indomethacin. At present there is no evidence of active gastrointestinal bleeding. I recommend to stop indomethacin, to avoid using aspirin or NSAIDS in the future. To change his omeprazole dose to 20 mg twice a day. 2. NSAIDS induced gastric ulcers. As above. 3. End-stage renal disease. Discussed his case with Dr. Cook. Code Status: Prior Primary Care Physician: [facility] Thank you for allowing me to participate in the care of this patient. ELIZABETH GUZMAN MD 09/10/2012 documented in thi s encounter ED Notes Conversion Transaction, Provider Unknown - 09/10/2012 7:43 PM PDTFormatting of this note m ight be different from the original. ED Notes by Gale Orona RN at 09/10/121942 Author: Gale Orona RN Service: (none) Author Type: Registered Nurse Filed: 09/10/121942 Date of Service: 09/10/121942 Status: Signed Customer Service Technician: Gale Orona RN (Registered Nurse) MD at bedside (Dr. Garza). Gale Orona RN 09/10/121942 onver quique Transaction, Provider Unknown - 09/10/2012 7:04 PM PDT ED Notes by Gale Orona RN at 09/10/121903 Author: Gale Orona RN Service: (none) Author Type: Registered Nurse Filed: 09/10/121903 Date of Service: 09/10/121903 Status: Signed Customer Service Technician: Gale Orona RN (Registered Nurse) Patient returned from MRI. Gale Orona RN 09/10/121903 onver quique Transaction, Provider Unknown - 09/10/2012 6:45 PM PDT ED Notes by Gale Orona RN at 09/10/121844 Author: Gale Orona RN Service: (none) Author Type: Registered Nurse Filed: 09/10/121844 Date of Service: 09/10/121844 Status: Signed Customer Service Technician: Gale Orona RN (Registered Nurse) Care assumed of patient. Patient remains in MRI. Gale Orona RN 09/10/121844 onver quique Transaction, Provider Unknown - 09/10/2012 5:32 PM PDT ED Notes by Adeola White at 09/10/121731 Author: Adeola White Service: (none) Author Type: Parking Patroller Filed: 03/20/13 1733 Date of Service: 09/10/12 173 Status: Signed Customer Service Technician: Adeola White (Parking Patroller) Patient given MRI safety sheet to fill out. Adeola White 09/10/12 1733 [email or web address] young - 09/10/2012 4:14 PM PDTFormatting of this note might be different from the orig inal. ED Provider Notes by Duyen Choudhary MD at 09/10/12 1614 Author: Duyen Choudhary MD Service: (none) Author Type: Physician Filed: 09/11/12 0002 Date of Service: 09/10/121613 Status: Signed Customer Service Technician: Duyen Choudhary MD (Physician) Procedure Orders: 1. Critical Care [[id number]] ordered by Duyen Choudhary MD at 09/10/12 193 [facility] Department of Emergency Medicine History of Present Illness Patient Identification Enrique Potter is a 47 y.o. male presenting with fatigue Patient information was obtained from patient. History/Exam limitations: none. Patient presented to the Emergency Department Car Chief Complaint Chief Complaint Patient presents with Referral "my fistula infiltrated I need my back checked and I need a blood transfusion" Enrique Ptoter is a 47 y.o. male with past medical history of hyperlipidemia, type 2 diabetes, c hronic end-stage renal disease, history of GI bleeding (recently had a colonoscopy and endos copy. Colonoscopy was clean and GI endoscopy showed ulcers without any bleeding, with a daryn n base) and recent admission for anemia secondary to kidney disease (see below) presenting w ith anemia. He was at dialysis today and was only able to get about an hour and a half sinc e the patient and then his fistula infiltrated and he developed severe bleeding. The symptom onset was abrupt, and has had a resolved course. However, he has chronic anemia and was to ld to come to the ER and get transfused. He also reports severe back pain in the C-spine at C7 and upper T-spine for the past month. The pain is located in the upper back, and is rate d as severe. There is no radiation. The pain is made worse by movement and is relieved by no thing. The patient also complains of the following additional symptoms: tingling in his fin gers. Care prior to arrival consisted of rest with no relief. Primary care provider: [facility] Recent admission for the same: "Date of Admission: 08/08/2012 Date of Discharge: 08/09/12 Discharge Provider: NABOR SCHMITT MD Treatment Team: Consulting Physician: Vikram Colbert MD Consulting Physician: Nancy Reid MD Admitting Provider: Vikram Colbert MD Discharge Diagnoses: Active Problems: Type II or unspecified type diabetes mellitus without mention of complication, not stated a s uncontrolled Hypothyroidism Diabetes mellitus with ESRD (end-stage renal disease) HTN (hypertension) ESRD (end stage renal disease) on dialysis Anemia of chronic kidney failure Resolved Problems: * No resolved hospital problems. * Procedures: * No surgery found * BRIEF HISTORY OF PRESENTATION: Enrique Potter is a 47 y.o. male with past medical history of hyperlipidemia, type 2 diabetes, c hronic end-stage renal disease, history of GI bleed. Last time when he was in the hospital, he had a colonoscopy and endoscopy. Colonoscopy was clean and GI endoscopy showed ulcers wit hout any bleeding, with a clean base. He was in his usual state of health and is still in [facility] usual state of health, but he missed his dialysis yesterday because he got only 15 minutes of dialysis as he said that there was some bleeding at the dialysis site and he was having some numbness as well. Also he was recently in the hospital for bacteremia. At that time ratna lysis catheter was changed, and he had a RONY as well. He missed his dialysis yesterday; now he went to the emergency room at [facility], where he had a neck pain and was foun d to be anemic and transferred to [facility]. At [facility] his hemoglobin was 5.7 and hematocrit 17.9. [...] worse. I really doubt that he is h aving acute GI bleed because he is not having any black stool or any abdominal pain. S/p tra nsfusion with appropriate response. Nephrology on board and agreeing with discharge 2. End-stage renal disease. IDr. umangsa on consult, plans for HD on her note 3. Type 2 diabetes. Resume home med 4. Hypothyroidism. We are going to continue Synthroid. 5. Hypertension. Blood pressure is well controlled. We are going to continue his home medication" Past Medical History Diagnosis Date Hyperlipidemia Hypertension [...] W/ EGD; Surgeon: John Singleton MD; Location: [facility] ENDOSCOPY; Se rvice: Gastroenterology; Laterality: N/A; Av fistula placement 05/06/2012 Procedure: AV FISTULA; Surgeon: Oskar Meyer MD; Location: [facility] MAIN OR; Service: Vascul ar; Laterality: Left; Left arm possible right Unlisted procedure arthroscopy shoulder rt , ligaments Knee arthroscopy 07/07/2012 Procedure: KNEE - ARTHROSCOPY; Surgeon: Duyen Raza MD; Location: [facility] MAIN OR; S ervice: Orthopedics; Laterality: Right; After 1530 Catheter removal 07/07/2012 Procedure: DIALYSIS CATHETER REMOVAL; Surgeon: Oskar Meyer MD; Location: [facility] BEDSIDE PA OCEDURE; Service: General; Laterality: Right; perm cath Dialysis fistula creation 07/07/2012 Procedure: DIALYSIS CATHETER INSERTION; Surgeon: Oskar Meyer MD; Location: [facility] BEDSIDE PROCEDURE; Service: General; Laterality: Left; temporary dialysis catheter Av fistula repair 07/11/2012 Procedure: AV FISTULA GRAFT REPAIR/REVISION; Surgeon: Oskar Meyer MD; Location: [facility] OR; Service: Vascular; Laterality: Left; Superficialization of brachiobasilic fistula and right IJ perm cath insertion Dialysis fistula creation 07/11/2012 Procedure: DIALYSIS CATHETER INSERTION; Surgeon: Oskar Meyer MD; Location: [facility] MAIN OR; Service: Vascular; Laterality: Left; removed dialysis catheter from left neck and placed new on in left chest, attempted in right neck but unable to place Prior to Admission medications Medication Sig Start Date End Date Taking? Authorizing Provider albuterol (PROVENTIL) (2.5 MG/3ML) 0.083% nebulizer solution Take 2.5 mg by nebulization ev keira 6 (six) hours as needed. Historical Provider ALBUTEROL IN Inhale 2 puffs into the lungs daily. Historical Provider amlodipine (NORVASC) 10 MG tablet Take 10 mg by mouth nightly. 04/15/12 04/15/13 Vikram thompson MD b complex-vitamin c-folic acid (NEPHRO-THU) 0.8 MG TABS Take 1 tablet by mouth daily. Historical Provider Cholecalciferol (VITAMIN D-3 PO) Take 1 tablet by mouth daily. Historical Provider citalopram (CELEXA) 20 MG tablet Take 20 mg by mouth nightly. Historical Provider ergocalciferol (DRISDOL) 30988 UNITS capsule Take 1 capsule by mouth once a week. 04/15/12 04/15/13 Vikram Colbert MD fluticasone-salmeterol (ADVAIR DISKUS) 100-50 MCG/DOSE AEPB Inhale 1 puff into the lungs 2 (two) times daily. Historical Provider HYDROcodone-acetaminophen (NORCO) 10-325 MG per tablet Take 1 tablet by mouth every 6 (six) hours as needed. Historical Provider levothyroxine (SYNTHROID, LEVOTHROID) 50 MCG tablet Take 50 mcg by mouth daily. Histor ical Provider Allergies Allergen Reactions Lisinopril [...] BIOLOGICAL; 2 STEP KIDSUNEMPLOYED BEFORE WORKED AT [employer] IN [place] NONE ETOH QUIT 15 YEARS AGODRUGS: quit METHAMPHETAMINES PER P ATIENT after the ARF in mar 2012FATHER HAS COLON CANCER, HEART DISEASEMOTHER 15 YEARS AGONO FH KIDNEY PROBLEMS. Patient is a local resident and lives with family Patient has good social support Family History Problem Relation Age of Onset Heart disease Mother Heart disease Father Diabetes Father Cancer Father colon cancer Review of Systems Review of Systems Constitutional: Positive for malaise/fatigue. Negative for fever, chills and weight loss. HENT: Positive for neck pain. Negative for hearing loss and ear pain. Eyes: Negative for blurred vision, double vision, photophobia and pain. Respiratory: Negative for cough and sputum production. Cardiovascular: Negative for chest pain, palpitations and orthopnea. Gastrointestinal: Negative for heartburn, diarrhea, constipation, blood in stool and melena . Musculoskeletal: Positive for back pain. Skin: Negative for itching and rash. Neurological: Positive for tingling. Negative for headaches. Ten systems reviewed and otherwise negative Physical Exam BP 101/53 | Pulse 91 | Temp(Src) 97.5 F (36.4 C) (Oral) | Resp 18 | Ht 1.702 m (5' 7") | Wt 74.481 kg (164 lb 3.2 oz) | BMI 25.72 kg/m2 | SpO2 96% Vital signs are reviewed and are normal Pulse Oximetry Interpretation: Normal on room air General: Alert, in no apparent distress. Very pleasant man. Alert and in no distress but appears MUCH older than his stated age Eyes: Normal inspection, pupils equal and round, non-icteric ENT: Ears normal, no drainage Nose normal and no deformity Pharynx: Mucosa is normal, uvula is midline and no tonsillar enlargement Neck: Normal inspection, supple, no lymphadenopathy, no meningeal signs Heart: Rate and rhythm normal, no murmurs, no S3/4, no extra heart sounds Respiratory: Breath sounds normal bilaterally, normal chest rise and fall, no obvious trau ma Abdomen: Soft and non tender and no mass, no guarding and no rebound Skin: Color normal, no petechia or rash, warm and dry Neuro: No motor deficits, moving all extremities equally, equal drug abuse worker, no sensory deficit Psych: Appropriate affect, no evidence of hallucinations or delusions Ext: Fistula to the left arm with good bruit and bandages soaked in blood but no bleeding Medical Decision Making and Emergency Department Course ED Department Course 16:15. Patient care initiated. After careful consideration of the patient's past medical history, past surgical history an d social history and my findings on examination I feel that the list of possible emergent di agnoses that the patient requires an evaluation for includes (but is not limited to) hepatit is, anemia, dehydration, acute renal failure, electrolyte changes, and arrhythmia. I feel th at laboratory testing and further diagnostic testing is necessary to ensure that there is no acute emergent cause of the symptoms. As part of workup today, I have ordered a CBC with di ff, complete metabolic panel and 12 lead EKG to evaluate this differential diagnosis Will also get an MRI of the c-spine and t-spine 18:30. Patient en route to MRI 17:45. Patient has critically low Hgb. Call from lab. I have ordered 4 units to be type and crossed and 2 units to be transfused. Patient to be admitted. Discussing the case with Dr. Cook and he will see the patient to coordinate dialysis with t he blood transfusions Discussing the case with Dr. Sims and he will see the patient Discussing the case with Dr. Marin and he will see the patient 19:04. Patient has returned from MRI. Call from lab. MULTIPLE antibodies to other blood types. He will need specialized blood from outside the local area - may be as late as christen mccarthy 19:31. Patient resting comfortably at this time. Admission orders on file at this time 19:40. Dr. Sims is here at bedside MRI report is back and may explain some of his pain and his tingling in his hands. Will de gissel to admitting team to manage these issues Medications given during this Emergency Department visit: Medications sodium chloride 0.9 % flush 10 mL ( Intravenous Canceled Entry 09/10/122146) indomethacin (INDOCIN) 25 MG capsule (not administered) omeprazole (PRILOSEC) 40 MG capsule (not administered) sevelamer (RENVELA) 800 MG tablet (not administered) albuterol (PROVENTIL) nebulizer solution 2.5 mg (not administered) amLODIPine (NORVASC) tablet 10 mg (10 mg Oral Given 09/10/122139) vitamin B ojuvaie-E-gewde acid (NEPHRO-THU) tablet 1 tablet (not administered) citalopram (CeleXA) tablet 20 mg (20 mg Oral Given 09/10/122139) HYDROcodone-acetaminophen (NORCO) 10-325 MG per tablet 1 tablet (not administered) levothyroxine (SYNTHROID, LEVOTHROID) tablet 50 mcg (not administered) sevelamer (RENVELA) tablet 800 mg (800 mg Oral Given 09/10/122139) acetaminophen (TYLENOL) tablet 650 mg (not administered) Or acetaminophen (TYLENOL) suppository 650 mg (not administered) ondansetron (ZOFRAN) tablet 4 mg (not administered) Or ondansetron (ZOFRAN) injection 4 mg (not administered) zolpidem (AMBIEN) tablet 5 mg (not administered) polyethylene glycol (GLYCOLAX) packet 17 g (not administered) sodium chloride 0.9 % infusion ( Intravenous New Bag 09/10/12 2030) dextrose 10 % infusion (not administered) dextrose 50 % solution 12 mL (not administered) glucagon (GLUCAGEN) injection 0.5 mg (not administered) dextrose 50 % solution 25 mL (not administered) glucagon (GLUCAGEN) injection 1 mg (not administered) insulin aspart (NOVOLOG) injection 0-6 Units (0 Units Subcutaneous Not Given 09/10/122140) insulin aspart (NOVOLOG) injection 0-3 Units (0 Units Subcutaneous Not Given 09/10/122139) insulin aspart (NOVOLOG) injection 0-6 Units (not administered) pantoprazole (PROTONIX) injection 40 mg (40 mg Intravenous Given 09/10/122139) diphenhydrAMINE (BENADRYL) injection 25 mg (not administered) Cholecalciferol 2000 UNITS TABS (not administered) indomethacin (INDOCIN) 25 MG capsule (not administered) Records Reviewed Old medical records. Nursing notes for this Emergency Department visit were reviewed Patient records reviewed in the [facility] information systems. I carefully reviewed the record s with regard to the past medical/surgical history, medications, and allergies. Consultations and phone calls: As above Laboratory Evaluation: Results Procedure Component Value Ref Range Date/Time CBC with differential [[id number]] (Abnormal) Collected:09/10/121649 Order Status:Completed Updated:09/10/121745 Specimen Information:Blood WBC 6.9 3.8 - 11.0 K/uL RBC 2.36 (L) 4.20 - 5.70 M/uL HGB 6.1 (LL) 13.2 - 17.0 g/dL HCT 19.5 (LL) 39.0 - 50.0 % MCV 82.4 80.0 - 100.0 fl MCH 26.0 (L) 27.0 - 34.0 pg MCHC 31.5 (L) 32.0 - 35.5 g/dL RDW SD 51.6 37 - 53 fl PLT 504 (H) 150 - 400 K/uL MPV 6.2 fl DIFF TYPE AUTOMATED NEUTROPHILS 70.7 40 - 75 % LYMPHOCYTES 13.3 (L) 15 - 48 % MONOCYTES 7.1 0 - 12 % EOSINOPHILS 8.3 (H) 0 - 7 % BASOPHILS 0.6 0 - 2 % NEUTROPHILS ABS 4.9 1.9 - 7.4 K/uL LYMPHOCYTES ABS 0.9 (L) 1.0 - 3.9 K/uL MONOCYTES ABS 0.5 0 - 0.8 K/uL EOSINOPHILS ABS 0.6 (H) 0 - 0.5 K/uL BASOPHILS ABS 0.0 0 - 0.1 K/uL Platelet Estimate INCREASED MORPHOLOGY 2+ Comprehensive metabolic panel [[id number]] (Abnormal) Collected:09/10/121649 Order Status:Completed Updated:09/10/12 7622 Specimen Information:Blood SODIUM 137 135 - 143 mmol/L POTASSIUM 4.1 3.5 - 4.9 mmol/L CHLORIDE 95 (L) 99 - 109 mmol/L CO2 32 23 - 32 mmol/L ANION GAP AGAP 14 5 - 20 mmol/L GLUCOSE 163 (H) 65 - 99 mg/dL BUN 30 (H) 8 - 25 mg/dL CREATININE 4.55 (H) 0.70 - 1.30 mg/dL BUN/CREAT 7 CALCIUM 7.7 (L) 8.5 - 10.2 mg/dL TOTAL PROTEIN 8.0 6.3 - 8.2 g/dL Albumin 1.8 (L) 3.6 - 5.0 g/dL GLOBULIN 6.2 (H) 1.3 - 4.9 g/dL A/G 0.3 (L) 1.0 - 2.4 TBIL 0.3 0.1 - 1.5 mg/dL ALK PHOS 124 (H) 35 - 115 U/L AST 22 10 - 45 U/L ALT 19 10 - 65 U/L EGFR 15 (L) >60 mL/min/1.73m2 Amylase [[id number]] Collected:09/10/121649 Order Status:Completed Updated:09/10/121734 Specimen Information:Blood AMYLASE 53 25 - 115 U/L Lipase [[id number]] Collected:09/10/121649 Order Status:Completed Updated:09/10/121734 Specimen Information:Blood LIPASE 81 73 - 393 U/L aPTT [[id number]] (Abnormal) Collected:09/10/121649 Order Status:Completed Updated:09/10/121722 Specimen Information:Blood APTT 33 (H) 23 - 32 seconds Protime [[id number]] Collected:09/10/121649 Order Status:Completed Updated:09/10/121722 Specimen Information:Blood INR 1.1 0.9 - 3.5 Interpretation of Laboratory studies: Critical anemia Radiology and EKG Evaluation Imaging Results MRI cervical spine without contrast (Final result) Result time:09/10/121936 Final result by Rad Results In [place] (09/10/12 19:37:05) Narrative: HISTORY: Neck and back pain. TECHNIQUE: MRI imaging of the cervical and thoracic spine was performed on a 1.5 Darlin MRI system. Sa gittal T2, T1, stir, T2-3-D images of the cervical spine with axial T2 GRE and T2 images. A xial, coronal, sagittal MPR reformats. Sagittal T2, T1, stir, and axial T2 weighted images of the thoracic spine. COMPARISON: None. FINDINGS: Cervical spine: There is poor definition of the inferior endplate C6 and superior endplate C7, with retroli sthesis of the inferior aspect of C6 in relation to C7 of 6 mm. This causes compression of the spinal cord, with severe central stenosis, AP canal diameter 5 -- 6 mm. There appears t o be subtle increased signal of the spinal cord, suggesting spinal cord edema. Abnormal wid ening of the C6 -- 7 interspinous distance, with increased signal of the posterior ligamento us structures, consistent with ligamentous injury. There also appears to be anterior ossifi c spurring at C6 -- 7, suggesting this may have a chronic component. Correlate clinically. Motion on the axial images limits evaluation. The retropulsion of C6 with loss of vertebra l height of C6 and C7 appears to also cause moderate -- severe bilateral neural foraminal st enosis at C6 -- 7. No further central or neural foraminal stenosis. Thoracic spine: On the sagittal stir images sequence 10 images 9 through 13, there is abnormal increased si gnal involving the left superior endplates of T6 through T8, with infiltrative increased sig nal extending into the T6 -- 7, T7 -- 8, T8 -- 9 neural foramina. Bone marrow, disk spaces, and vertebral bodies and spinal cord otherwise appear unremarkabl e. No central or neural foraminal stenosis in the thoracic spine. IMPRESSION: 1. Retrolisthesis of C6 in relation to C7 of 6 mm, with compression of the inferior aspect C6 and superior aspect C7, probably chronic. 2. Associated compression of the spinal cord at C6 -- 7 with AP canal diameter 5 -- 6 mm w ith severe central stenosis, bilateral neural foraminal stenosis. 3. Subtle signal in the spinal cord at this level, suggesting cord edema. 4. Abnormal widening of the interspinous distance C6 -- 7 with abnormal increased signal, suggesting ligamentous injury. 5. Edema of the left superior endplate/lateral vertebral bodies T6 -- T8, extending into t he pedicles, with surrounding increased signal on stir images in the left C6 -- 7 through T8 -- 9 neural foramina. This may be inflammatory. Given the patient's renal failure, MR and CT contrast enhancement is contraindicated. CT evaluation of the cervical and thoracic spi ne may help. thoracic spine without contrast (Final result) Result time:09/10/121936 Final result by Rad Results In [place] (09/10/12 19:37:05) Narrative: HISTORY: Neck and back pain. TECHNIQUE: MRI imaging of the cervical and thoracic spine was performed on a 1.5 Darlin MRI system. Sa gittal T2, T1, stir, T2-3-D images of the cervical spine with axial T2 GRE and T2 images. A xial, coronal, sagittal MPR reformats. Sagittal T2, T1, stir, and axial T2 weighted images of the thoracic spine. COMPARISON: None. FINDINGS: Cervical spine: There is poor definition of the inferior endplate C6 and superior endplate C7, with retroli sthesis of the inferior aspect of C6 in relation to C7 of 6 mm. This causes compression of the spinal cord, with severe central stenosis, AP canal diameter 5 -- 6 mm. There appears t o be subtle increased signal of the spinal cord, suggesting spinal cord edema. Abnormal wid ening of the C6 -- 7 interspinous distance, with increased signal of the posterior ligamento us structures, consistent with ligamentous injury. There also appears to be anterior ossifi c spurring at C6 -- 7, suggesting this may have a chronic component. Correlate clinically. Motion on the axial images limits evaluation. The retropulsion of C6 with loss of vertebra l height of C6 and C7 appears to also cause moderate -- severe bilateral neural foraminal st enosis at C6 -- 7. No further central or neural foraminal stenosis. Thoracic spine: On the sagittal stir images sequence 10 images 9 through 13, there is abnormal increased si gnal involving the left superior endplates of T6 through T8, with infiltrative increased sig nal extending into the T6 -- 7, T7 -- 8, T8 -- 9 neural foramina. Bone marrow, disk spaces, and vertebral bodies and spinal cord otherwise appear unremarkabl e. No central or neural foraminal stenosis in the thoracic spine. IMPRESSION: 1. Retrolisthesis of C6 in relation to C7 of 6 mm, with compression of the inferior aspect C6 and superior aspect C7, probably chronic. 2. Associated compression of the spinal cord at C6 -- 7 with AP canal diameter 5 -- 6 mm w ith severe central stenosis, bilateral neural foraminal stenosis. 3. Subtle signal in the spinal cord at this level, suggesting cord edema. 4. Abnormal widening of the interspinous distance C6 -- 7 with abnormal increased signal, suggesting ligamentous injury. 5. Edema of the left superior endplate/lateral vertebral bodies T6 -- T8, extending into t he pedicles, with surrounding increased signal on stir images in the left C6 -- 7 through T8 -- 9 neural foramina. This may be inflammatory. Given the patient's renal failure, MR and CT contrast enhancement is contraindicated. CT evaluation of the cervical and thoracic spi ne may help. Interpretation - September 10, 2012 at 16:32 Rhythm: Sinus Ventricular Rate: 82 PA Interval: Normal ST Segments: Normal Significant Q-waves: None Blocks: None [place]: Normal Additional Comments: No acute ischemia ED Diagnoses Final diagnoses Anemia ESRD (end stage renal disease) on dialysis Acute blood loss anemia Back pain, acute Retrolisthesis of C6 in relation to C7 of 6 mm, with compression of the inferior aspect C6 and superior aspect C7 Spinal stenosis in cervical region, at C6 -- 7 with AP canal diameter 5 -- 6 mm Disposition: ED Disposition Admit/Observation Bed request special needs: None Diagnosis?: anemia Follow-up Information None Discharge Medications: New Prescriptions No new medications Additional Documentation Critical Care Performed by: DUYEN CHOUDHARY Authorized by: DUYEN CHOUDHARY Total critical care time: 35 minutes Critical care time was exclusive of separately billable procedures and treating other patie nts. Critical care was necessary to treat or prevent imminent or life-threatening deterioration of the following conditions: circulatory failure. Critical care was time spent personally by me on the following activities: discussions with consultants, evaluation of patient's response to treatment, obtaining history from patient or surrogate, ordering and review of laboratory studies, pulse oximetry, development of jose tment plan with patient or surrogate, examination of patient, ordering and performing treatm ents and interventions, re-evaluation of patient's condition, ordering and review of radiogr aphic studies and review of old charts. Comments: I was in constant attendance of the patient for the time listed here and this jb e was greater than 35 minutes. This patient was critically ill with life threatening anemia in the context of renal failure, back pain and fatigue that required multiple treatments. H ad this not been done the patient could have suffered and disability. Time is exclusi ve of separately billable procedures and of time spent caring for other patients. This time includes: direct patient care, patient reassessment, coordination of patient care, interpre tation of data (laboratory data, pulse oximetry, chest xrays and prior electrocardiograms), review of patient's medical records, medical consultation, family consultation regarding josué atment decisions and documentation of patient care - see progress notes for a full descripti on. The patient required critical care due to the acute impairment of vital organ systems (c irculatory) and a high probability of imminent and life threatening deterioration. Multiple emergent interventions were required to prevent life threatening deterioration. Specific tr eatments include blood transfusions, admission, coordination of care and arranging admission Duyen Choudhary MD 09/11/12 0002 documented in this enco unter Plan of Treatment Not on filedocumented as of this encounter Procedures + +--------+ + + + | Procedure Name | Priori | Date/Time | Associated Diagnosis | Comments | | | ty | | | | + +--------+ + + + | CULTURE, BLOOD, 2ND | Timed | 09/10/2012 | | Results for this | | SPECIMEN (NON-ORD) | | 7:44 PM | | procedure are in the | | | | PDT | | results section. | + +--------+ + + + | CULTURE, BLOOD | Timed | 09/10/2012 | | Results for this | | | | 7:14 PM | | procedure are in the | | | | PDT | | results section. | + +--------+ + + + | MRI THORACIC SPINE | Routin | 09/10/2012 | | Results for this | | WO CONTRAST | e | 6:59 PM | | procedure are in the | | | | PDT | | results section. | + +--------+ + + + | MRI CERVICAL SPINE | Routin | 09/10/2012 | | Results for this | | WO CONTRAST | e | 6:58 PM | | procedure are in the | | | | PDT | | results section. | + +--------+ + + + documented in this encounter Results Culture, Blood, 2nd Specimen (09/10/2012 7:44 PM PDT) + + | Specimen | + + | Blood specimen | | (specimen) | + + + + + | Narrative | Performed At | + + + | Specimen Description BLOOD SPECIAL | EXTERNAL LAB | | REQUESTS R HAND | | | Testing performed at [facility];[address] [place] [address] | | | [address];[place] [address] CULTURE | | | NO GROWTH IN 5 DAYS. | | | Testing performed at [facility];[address] [place] [address];[place] [address] | | | REPORT STATUS 09/16/2012 FINAL | | + + + + +---------+ + + | Performing | Address | City/State/Zipcode | Phone Number | | Organization | | | | + +---------+ + + | EXTERNAL LAB | | | | + +---------+ + + Culture, Blood (09/10/2012 7:14 PM PDT) + + | Specimen | + + | Blood specimen | | (specimen) | + + + + + | Narrative | Performed At | + + + | Specimen Description BLOOD SPECIAL | EXTERNAL LAB | | REQUESTS R HAND | | | Testing performed at [facility];[address] [place] [address] | | | [facility];[place] [address] CULTURE | | | NO GROWTH IN 5 DAYS. | | | Testing performed at [facility];[address] [place] [address];[place] [address] | | | REPORT STATUS 09/16/2012 FINAL | | + + + + +---------+ + + | Performing | Address | City/State/Zipcode | Phone Number | | Organization | | | | + +---------+ + + | EXTERNAL LAB | | | | + +---------+ + + MRI Thoracic Spine wo Contrast (09/10/2012 6:59 PM PDT) + + | Specimen | + + | | + + + + + | Narrative | Performed At | + + + | HISTORY: Neck and back pain. TECHNIQUE: MRI imaging of the | | | cervical and thoracic spine was performed on a 1.5 [employer] MRI system. | | | Sagittal T2, T1, stir, T2-3-D images of the cervical spine with | | | axial T2 GRE and T2 images. Axial, coronal, sagittal MPR reformats. | | | Sagittal T2, T1, stir, and axial T2 weighted images of the | | | thoracic spine. COMPARISON: None. FINDINGS: Cervical spine: | | | There is poor definition of the inferior endplate C6 and superior | | | endplate C7, with retrolisthesis of the inferior aspect of C6 in | | | relation to C7 of 6 mm. This causes compression of the spinal cord, | | | with severe central stenosis, AP canal diameter 5 -- 6 mm. There | | | appears to be subtle increased signal of the spinal cord, suggesting | | | spinal cord edema. Abnormal widening of the C6 -- 7 interspinous | | | distance, with increased signal of the posterior ligamentous | | | structures, consistent with ligamentous injury. There also appears | | | to be anterior ossific spurring at C6 -- 7, suggesting this may have | | | a chronic component. Correlate clinically. Motion on the axial | | | images limits evaluation. The retropulsion of C6 with loss of | | | vertebral height of C6 and C7 appears to also cause moderate -- severe | | | bilateral neural foraminal stenosis at C6 -- 7. No further central | | | or neural foraminal stenosis. Thoracic spine: On the sagittal | | | stir images sequence 10 images 9 through 13, there is abnormal | | | increased signal involving the left superior endplates of T6 through | | | T8, with infiltrative increased signal extending into the T6 -- 7, T7 | | | -- 8, T8 -- 9 neural foramina. Bone marrow, disk spaces, and | | | vertebral bodies and spinal cord otherwise appear unremarkable. No | | | central or neural foraminal stenosis in the thoracic spine. | | | IMPRESSION: 1. Retrolisthesis of C6 in relation to C7 of 6 mm, with | | | compression of the inferior aspect C6 and superior aspect C7, | | | probably chronic. 2. Associated compression of the spinal cord at | | | C6 -- 7 with AP canal diameter 5 -- 6 mm with severe central stenosis, | | | bilateral neural foraminal stenosis. 3. Subtle signal in the | | | spinal cord at this level, suggesting cord edema. 4. Abnormal | | | widening of the interspinous distance C6 -- 7 with abnormal increased | | | signal, suggesting ligamentous injury. 5. Edema of the left | | | superior endplate/lateral vertebral bodies T6 -- T8, extending into | | | the pedicles, with surrounding increased signal on stir images in the | | | left C6 -- 7 through T8 -- 9 neural foramina. This may be | | | inflammatory. Given the patient's renal failure, MR and CT | | | contrast enhancement is contraindicated. CT evaluation of the | | | cervical and thoracic spine may help. | | + + + + + | Procedure Note | + + | Khalif Palm Conversion - 02/13/2019 4:30 PM PDT HISTORY:Neck and back pain. | | TECHNIQUE:MRI imaging of the cervical and thoracic spine was performed on a 1.5 Darlin | | MRI system. Sagittal T2, T1, stir, T2-3-D images of the cervical spine with axial T2 | | GRE and T2 images. Axial, coronal, sagittal MPR reformats. Sagittal T2, T1, stir, and | | axial T2 weighted images of the thoracic spine. COMPARISON:None. FINDINGS:Cervical | | spine:There is poor definition of the inferior endplate C6 and superior endplate C7, | | with retrolisthesis of the inferior aspect of C6 in relation to C7 of 6 mm. This causes | | compression of the spinal cord, with severe central stenosis, AP canal diameter 5 -- 6 | | mm. There appears to be subtle increased signal of the spinal cord, suggesting spinal | | cord edema. Abnormal widening of the C6 -- 7 interspinous distance, with increased | | signal of the posterior ligamentous structures, consistent with ligamentous injury. | | There also appears to be anterior ossific spurring at C6 -- 7, suggesting this may have | | a chronic component. Correlate clinically. Motion on the axial images limits | | evaluation. The retropulsion of C6 with loss of vertebral height of C6 and C7 appears | | to also cause moderate -- severe bilateral neural foraminal stenosis at C6 -- 7. No | | further central or neural foraminal stenosis. Thoracic spine:On the sagittal stir images | | sequence 10 images 9 through 13, there is abnormal increased signal involving the left | | superior endplates of T6 through T8, with infiltrative increased signal extending into | | the T6 -- 7, T7 -- 8, T8 -- 9 neural foramina. Bone marrow, disk spaces, and vertebral | | bodies and spinal cord otherwise appear unremarkable. No central or neural foraminal | | stenosis in the thoracic spine. IMPRESSION:1. Retrolisthesis of C6 in relation to C7 of | | 6 mm, with compression of the inferior aspect C6 and superior aspect C7, probably | | chronic.2. Associated compression of the spinal cord at C6 -- 7 with AP canal diameter | | 5 -- 6 mm with severe central stenosis, bilateral neural foraminal stenosis.3. Subtle | | signal in the spinal cord at this level, suggesting cord edema.4. Abnormal widening of | | the interspinous distance C6 -- 7 with abnormal increased signal, suggesting ligamentous | | injury.5. Edema of the left superior endplate/lateral vertebral bodies T6 -- T8, | | extending into the pedicles, with surrounding increased signal on stir images in the | | left C6 -- 7 through T8 -- 9 neural foramina. This may be inflammatory. Given the | | patient's renal failure, MR and CT contrast enhancement is contraindicated. CT | | evaluation of the cervical and thoracic spine may help. | |renal failure, MR and CT contrast enhancement is contraindicated. CT evaluation of the cer vical and thoracic spine may help. | | | | | + + MRI Cervical Spine wo Contrast (09/10/2012 6:58 PM PDT) + + | Specimen | + + | | + + + + + | Narrative | Performed At | + + + | HISTORY: Neck and back pain. TECHNIQUE: MRI imaging of the | | | cervical and thoracic spine was performed on a 1.5 Darlin MRI system. | | | Sagittal T2, T1, stir, T2-3-D images of the cervical spine with | | | axial T2 GRE and T2 images. Axial, coronal, sagittal MPR reformats. | | | Sagittal T2, T1, stir, and axial T2 weighted images of the | | | thoracic spine. COMPARISON: None. FINDINGS: Cervical spine: | | | There is poor definition of the inferior endplate C6 and superior | | | endplate C7, with retrolisthesis of the inferior aspect of C6 in | | | relation to C7 of 6 mm. This causes compression of the spinal cord, | | | with severe central stenosis, AP canal diameter 5 -- 6 mm. There | | | appears to be subtle increased signal of the spinal cord, suggesting | | | spinal cord edema. Abnormal widening of the C6 -- 7 interspinous | | | distance, with increased signal of the posterior ligamentous | | | structures, consistent with ligamentous injury. There also appears | | | to be anterior ossific spurring at C6 -- 7, suggesting this may have | | | a chronic component. Correlate clinically. Motion on the axial | | | images limits evaluation. The retropulsion of C6 with loss of | | | vertebral height of C6 and C7 appears to also cause moderate -- severe | | | bilateral neural foraminal stenosis at C6 -- 7. No further central | | | or neural foraminal stenosis. Thoracic spine: On the sagittal | | | stir images sequence 10 images 9 through 13, there is abnormal | | | increased signal involving the left superior endplates of T6 through | | | T8, with infiltrative increased signal extending into the T6 -- 7, T7 | | | -- 8, T8 -- 9 neural foramina. Bone marrow, disk spaces, and | | | vertebral bodies and spinal cord otherwise appear unremarkable. No | | | central or neural foraminal stenosis in the thoracic spine. | | | IMPRESSION: 1. Retrolisthesis of C6 in relation to C7 of 6 mm, with | | | compression of the inferior aspect C6 and superior aspect C7, | | | probably chronic. 2. Associated compression of the spinal cord at | | | C6 -- 7 with AP canal diameter 5 -- 6 mm with severe central stenosis, | | | bilateral neural foraminal stenosis. 3. Subtle signal in the | | | spinal cord at this level, suggesting cord edema. 4. Abnormal | | | widening of the interspinous distance C6 -- 7 with abnormal increased | | | signal, suggesting ligamentous injury. 5. Edema of the left | | | superior endplate/lateral vertebral bodies T6 -- T8, extending into | | | the pedicles, with surrounding increased signal on stir images in the | | | left C6 -- 7 through T8 -- 9 neural foramina. This may be | | | inflammatory. Given the patient's renal failure, MR and CT | | | contrast enhancement is contraindicated. CT evaluation of the | | | cervical and thoracic spine may help. | | + + + + + | Procedure Note | + + | Né[place]or, Khalif Conversion - 02/13/2019 4:30 PM PDT HISTORY:Neck and back pain. | | TECHNIQUE:MRI imaging of the cervical and thoracic spine was performed on a 1.5 Darlin | | MRI system. Sagittal T2, T1, stir, T2-3-D images of the cervical spine with axial T2 | | GRE and T2 images. Axial, coronal, sagittal MPR reformats. Sagittal T2, T1, stir, and | | axial T2 weighted images of the thoracic spine. COMPARISON:None. FINDINGS:Cervical | | spine:There is poor definition of the inferior endplate C6 and superior endplate C7, | | with retrolisthesis of the inferior aspect of C6 in relation to C7 of 6 mm. This causes | | compression of the spinal cord, with severe central stenosis, AP canal diameter 5 -- 6 | | mm. There appears to be subtle increased signal of the spinal cord, suggesting spinal | | cord edema. Abnormal widening of the C6 -- 7 interspinous distance, with increased | | signal of the posterior ligamentous structures, consistent with ligamentous injury. | | There also appears to be anterior ossific spurring at C6 -- 7, suggesting this may have | | a chronic component. Correlate clinically. Motion on the axial images limits | | evaluation. The retropulsion of C6 with loss of vertebral height of C6 and C7 appears | | to also cause moderate -- severe bilateral neural foraminal stenosis at C6 -- 7. No | | further central or neural foraminal stenosis. Thoracic spine:On the sagittal stir images | | sequence 10 images 9 through 13, there is abnormal increased signal involving the left | | superior endplates of T6 through T8, with infiltrative increased signal extending into | | the T6 -- 7, T7 -- 8, T8 -- 9 neural foramina. Bone marrow, disk spaces, and vertebral | | bodies and spinal cord otherwise appear unremarkable. No central or neural foraminal | | stenosis in the thoracic spine. IMPRESSION:1. Retrolisthesis of C6 in relation to C7 of | | 6 mm, with compression of the inferior aspect C6 and superior aspect C7, probably | | chronic.2. Associated compression of the spinal cord at C6 -- 7 with AP canal diameter | | 5 -- 6 mm with severe central stenosis, bilateral neural foraminal stenosis.3. Subtle | | signal in the spinal cord at this level, suggesting cord edema.4. Abnormal widening of | | the interspinous distance C6 -- 7 with abnormal increased signal, suggesting ligamentous | | injury.5. Edema of the left superior endplate/lateral vertebral bodies T6 -- T8, | | extending into the pedicles, with surrounding increased signal on stir images in the | | left C6 -- 7 through T8 -- 9 neural foramina. This may be inflammatory. Given the | | patient's renal failure, MR and CT contrast enhancement is contraindicated. CT | | evaluation of the cervical and thoracic spine may help. | |renal failure, MR and CT contrast enhancement is contraindicated. CT evaluation of the cer vical and thoracic spine may help. | | | | | + + documented in this encounter Visit Diagnoses + + | Diagnosis | + + | Anemia Anemia, unspecified | + + | Hypoalbuminemia Other disorders of plasma protein metabolism | + + | ESRD (end stage renal disease) on dialysis (HCC) End stage renal disease | + + | Acute blood loss anemia Acute posthemorrhagic anemia | + + | Back pain, acute Backache, unspecified | + + | Retrolisthesis Disorder of bone and cartilage, unspecified | + + | Spinal stenosis in cervical region | + + | Type II or unspecified type diabetes mellitus without mention of complication, not | | stated as uncontrolled | + + | HTN (hypertension) Unspecified essential hypertension | + + | Anemia of chronic kidney failure Anemia in chronic kidney disease | + + documented in this encounter
--- OUTSIDE RECORDS SUMMARY | ~2020-03-11 | XMS | Encounter Summary ---
Demographics + + + | Address | [address] | | | [place] [address] | + + + | Home Phone | | + + + | Preferred Language | Unknown | + + + | Marital Status | Unknown | + + + | Faith Affiliation | [id number] | + + + | Race | or | + + + | Ethnic Group | Not or | + + + Author + + + | Author | [facility] | | | and [place] | + + + | Organization | [facility] | | [...] Team Providers + +------+ + | Care Director Of Emergency Nursing Name | Role | Phone | + +------+ + PCP | Unavailable | + +------+ + Encounter Details +--------+ + + + + | Date | Type | Department | Care Team | Description | +--------+ + + + + | 12/09/ | Hospital | [facility] | Conversion | End stage renal | | 2015 | Encounter | [facility] OP | Transaction, | disease (HCC) | | | | [address] | Provider Unknown | | | | | [place], [place] | [phone] | | | | | [address] | | | | | | [phone] | Uriel Thompson, | | | | | | [address] | | | | | | [place], [place] | | | | | | [address] | | | | | | | [...] Progress Notes Conversion Transaction, Provider Unknown - 12/09/2014 7:48 PM PDTFormatting of this note m ight be different from the original. Nurse Progress Note by Gemini Triplett RN at 12/09/141947 Author: Gemini Triplett RN Service: Interventional Radiology Author Type: Registered Nu rse Filed: 12/09/141947 Date of Service: 12/09/141947 Status: Signed Motorcycle Builder: Gemini Triplett RN (Registered Nurse) Pt resting comfortably, discharge instructions given both written and orally, will d/c by a mbzack when criteria met. Juan Farrar - 12/09/2014 7:00 PM PDTFormatting of this note might be different from the or iginal. 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 VITALS: Reviewed as listed. HEAD: NC/AT. EYES: Non-icteric sclera. ENT: . Buccal mucosa is moist. No gross ear or nasal problems noted. NECK: Supple. No raised JVD LUNGS: Clear to auscultation bilaterally. HEART: S1, S2, no pericardial rub noted. ABDOMEN: Full, soft, no tenderness. Bowel sounds are present. EXTREMITIES: no pedal edema noted. SKIN: Warm to touch. No rash or ecchymosis noted. NEUROLOGIC: No gross focal motor deficit noted. PSYCH: The patient is alert and oriented x 3, mood and affect looks ok, memory seems to be intact. R ARM AVF +VE THRILL/BRUIT LABS: REVIEWED FROM [facility] HD FLOW SHEET REVIEWED FROM [facility] Underwent fistulogram by dr thompson Successful recanalization of the significant occlusion in proximal right brachiocephalic ve in and focal, preocclusive stenosis in proximal right cephalic vein using balloon angioplast y without incidence. DEEPAK HD/UF WELL EPOGEN PER PROTOCOL TO KEEP HGB 10-11 HECTOROL PER PROTOCOL TO KEEP PTH 150-600 COUNSELED ON LOW P DIET/ HIGH PROTEIN DIET documented in this en counter H&P Notes Bhanu Thompson MD, MD - 12/09/2014 7:40 PM PDTFormatting of this note might be diffe rent from the original. H&P by Uriel Thompson MD at 12/09/141939 Author: Uriel Thompson MD Service: Interventional Radiology Author Type: Physician Filed: 12/09/141940 Date of Service: 12/09/141939 Status: Signed Motorcycle Builder: Uriel Thompson MD (Physician) [facility] Service: Interventional Radiology Admission History & Physical Date of Admission: 12/09/2014 History Obtained From: patient CHIEF COMPLAINT: Poor flow in the fistula HISTORY OF PRESENT ILLNESS The patient is a 49 y.o. male with significant past medical history of ESRD who presents w ith Increased bleeding after dialysis and poor clearance. REVIEW OF SYSTEMS Review of Systems - Negative except as noted above. Past Medical History Diagnosis Date Hyperlipidemia Hypertension Thyroid disease Anemia Abdominal pain, right upper quadrant 04/13/2012 Dialysis patient ([facility]) GI bleed 04/30/2012 from coumadin Walker as ambulation aid Gout Asthma pt not using inhaler any more, no symptoms DVT (deep venous thrombosis) ([facility]) x3 AV fistula ([facility]) lt arm Knee pain, right 07/06/2012 MSSA (methicillin susceptible Staphylococcus aureus) infection 04/11/2012 Anemia due to blood loss 04/30/2012 Amphetamine and other psychostimulant dependence, continuous (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) neuropathy Hyperkalemia 11/09/2013 Chronic obstructive asthma with exacerbation ([facility]) 10/27/2013 SOB (shortness of breath) 10/27/2013 Diabetes mellitus, type [address]) Past Surgical History Procedure Laterality Date Colonoscopy with egd 05/01/2012 Procedure: COLONOSCOPY W/ EGD; Surgeon: John Singleton MD; Location: [facility] ENDOSCOPY; Se rvice: Gastroenterology; Laterality: N/A; Av fistula placement 05/06/2012 Procedure: AV FISTULA; Surgeon: Oskar Meyer MD; Location: [facility] MAIN OR; Service: Vascul ar; Laterality: Left; Left arm possible right Unlisted procedure arthroscopy shoulder rt , ligaments Knee arthroscopy 07/07/2012 Procedure: KNEE - ARTHROSCOPY; Surgeon: Favio Raza MD; Location: [facility] MAIN OR; S ervice: Orthopedics; Laterality: Right; After 1530 Catheter removal 07/07/2012 Procedure: DIALYSIS CATHETER REMOVAL; Surgeon: Oskar Meyer MD; Location: [facility] BEDSIDE DE OCEDURE; Service: General; Laterality: Right; perm cath Dialysis fistula creation 07/07/2012 Procedure: DIALYSIS CATHETER INSERTION; Surgeon: Oskar Meyer MD; Location: [facility] BEDSIDE PROCEDURE; Service: General; Laterality: Left; temporary dialysis catheter Av fistula repair 07/11/2012 Procedure: AV FISTULA GRAFT REPAIR/REVISION; Surgeon: Oskar Meyer MD; Location: [facility] OR; Service: Vascular; Laterality: Left; Superficialization of brachiobasilic fistula and right IJ perm cath insertion Dialysis fistula creation 07/11/2012 Procedure: DIALYSIS CATHETER INSERTION; Surgeon: Oskar Meyer MD; Location: [facility] MAIN OR; Service: Vascular; Laterality: Left; removed dialysis catheter from left neck and placed new on in left chest, attempted in right neck but unable to place Av fistula placement Right 02/09/2014 Procedure: AV FISTULA; Surgeon: Oskar Meyer MD; Location: [facility] MAIN OR; Service: Vascul ar; Laterality: Right; Superficialization of av fistula Right 03/30/2014 Procedure: AV FISTULA - SUPERFICIALIZATION; Surgeon: Oskar Meyer MD; Location: [facility] MAIN OR; Service: Vascular; Laterality: Right; Allergies Allergen Reactions Lisinopril Other [...] 2 (two) times daily. 10/28/13 Yes Karri Hfuf MD furosemide (LASIX) 20 MG tablet Take [...] H SNACKS 01/14/14 Yes Juan Timmons MD sevelamer (RENVELA) 800 MG [...] mouth nightly. 10/28/13 10/28/14 Karri Huff MD Family History Problem Relation Age of Onset [...] KIDS. CURRENTLY UNEMPLOYED, BEFOR E WORKED AT [employer] IN [place]. Quit METHAMPHETAMINES PER PATIENT after t he ARF in mar 2012. FATHER HAS COLON CANCER, HEART DISEASE, MOTHER 15 YEARS AGO. NO FH KIDNEY PROB LEMS. PHYSICAL EXAM Vital Signs: BP 168/98 | Pulse 97 | Temp(Src) 97.9 F (36.6 C) | Resp 19 | Ht 1.702 m (5' 7") | Wt 73 .936 kg (163 lb) | BMI 25.52 kg/m2 General appearance: alert, appears stated age and [...] normal, atraumatic, no cyanosis or edema and Right arm fistula wit h poor flow. Neurologic: Grossly normal DATA CBC: No results for input(s): WBC, RBC, HGB, HCT, MCV, MCH, MCHC, RDW, PLT, MPV, DIFFTYPE in the last 168 hours. PT/INR: No results for input(s): PROTIME, INR in the last 168 hours. PTT: No results for input(s): APTT in the last 168 hours. PROBLEM LIST Active Problems: * No active hospital problems. * ASSESSMENT & PLAN 49 yr old male with ESRD on HD with right arm AV fistula and poor flow and increased venous pressures. He is a candidate for fistulagram and intervention. We discussed the procedure of fistulag maame and intervention, risks ( Bleeding, infection, contrast allergy, injury to the vein need ing stenting) and other options for managing poor flow in the fistula. He understood the dis cussion and expressed a wish to proceed. Moderate Sedation Presedation Assessment completed. ASA Classification: ASA 3: Patient with a severe systemic disease Mallampati Classification: I: Full visibility of tonsils, uvula and soft palate Disposition: [facility] Code Status: Prior Primary Care Physician: [facility] Uriel Thompson MD 12/09/2014 7:40 PM documented i n this encounter Plan of Treatment Not on filedocumented as of this encounter Procedures + +--------+ + + + | Procedure Name | Priori | Date/Time | Associated Diagnosis | Comments | | | ty | | | | + +--------+ + + + | IR INJECTION | Routin | 12/09/2014 | | Results for this | | DIALYSIS CIRCUIT W | e | 7:43 PM | | procedure are in the | | ANGIOPLASTY | | PDT | | results section. | + +--------+ + + + | IR INJECTION | Routin | 12/09/2014 | | Results for this | | DIALYSIS CIRCUIT | e | 7:43 PM | | procedure are in the | | | | PDT | | results section. | + +--------+ + + + documented in this encounter Results IR Inj Dialysis Circuit w Angioplasty (12/09/2014 7:43 PM PDT) + + | Specimen | + + | | + + + + + | Impressions | Performed At | + + + | 1. Successful recanalization of the significant occlusion in | | | proximal right brachiocephalic vein and focal, preocclusive stenosis | | | in proximal right cephalic vein using balloon angioplasty without | | | incidence. [id number], 47267, 71108, 74803-30, 29160-04 | | | | | + + + + + + | Narrative | Performed At | + + + | [facility] 12/09/2014 7:43 PM HISTORY: | | | 49 years. Male. With chronic kidney disease stage V presents with | | | increased venous pressures and prolonged bleeding after dialysis. | | | 585.6, 996.1 EXAMINATION Right brachiocephalic fistulogram and | | | angioplasty of the multiple tandem stenosis in mid right cephalic | | | vein and proximal right brachiocephalic vein using 7 mm x 4 cm and 10 | | | mm x 4 cm balloon catheters. MEDICATIONS: Isovue-200 40 cc, | | | Heparin 3700 units intravenous, Versed 1 mg intravenous, fentanyl | | | 25-mcg intravenous. Intra-procedure sedation time 32 minutes. The | | | radiation dose 33 mGray, Fluoroscopy time 5.9 minutes. Appropriate | | | physiologic monitoring, maintenance of adequate conscious sedation | | | and independent assisted supervision performed throughout the | [...] the | | | x-ray table. The right arm prepped in the usual sterile fashion. | | | Right arm brachiocephalic fistula was accessed using micropuncture | | | needle and exchanged for 4-Citizen [place] micropuncture sheath. Initial | | | fistula pressure was obtained and fistulogram obtained from the | | | right cubital fossa to the right atrium. Given the focal, | | | preocclusive stenosis in mid arm segment the cephalic vein and | | | segmental occlusion of the distal cephalic vein and proximal right | | | brachiocephalic vein, I decided to perform angioplasty of the venous | | | lesions. 4-Citizen [place] micropuncture sheath was exchanged for 6-[place]izen [place] | | | short sheath over a 0.035, angled Glidewire. 7 mm x 4 cm balloon | | | catheter was advanced over the 0.035, angled Glidewire. Balloon was | | | positioned across stenosis in proximal cephalic vein and | | | subsequently across the occlusion of the proximal right | | | brachiocephalic vein performed in a distal to proximal fashion. | | | Subsequently, balloon was exchanged for 7 mm x 4 cm high pressure | | | conquest balloon and angioplasty the proximal cephalic venous | | | stenosis performed. Subsequently, balloon was exchanged for 10 mm x 4 | | | cm balloon catheter and angioplasty the occluded segment in right | | | brachiocephalic vein performed. During inflation of the balloon | | | across the venous anastomosis Reflux evaluation of the arteriovenous | | | anastomosis obtained. Subsequently, balloon was deflated and a final | | | fistulogram obtained from the right cubital fossa to the right | | | atrium. Final fistula pressure and arterial pressures were | | | obtained. All catheters and wires then removed and hemostasis | | | obtained with manual pressure. No immediate procedural | | | complications. Patient tolerated the procedure well. FINDINGS | | | 1. Initial fistula pressure 136/73 mm Hg, arterial pressure 159/86 | | | mm Hg, final fistula pressure 76/48 mm Hg. 2. Right | | | brachiocephalic fistulogram revealed tandem, preocclusive stenosis in | | | proximal right cephalic vein at the level of mid arm and segmental | | | occlusion of the distal right subclavian vein and proximal right | | | brachiocephalic vein. Arterial venous anastomoses widely patent. 3. | | | Successful recanalization of the occluded right brachiocephalic | | | vein and angioplasty the significant focal stenosis mid arm segment of | | | the right cephalic vein without incidence. | | + + + + + | Procedure Note | + + | Néstor, Rad Conversion - 02/06/2019 3:01 AM PDT [facility] | | FISTULAGRAM12/09/2014 7:43 PM HISTORY:49 years. Male. With chronic kidney disease stage | | V presents with increased venous pressures and prolonged bleeding after dialysis. | | 585.6, 996.1 EXAMINATION Right brachiocephalic fistulogram and angioplasty of the | | multiple tandem stenosis in mid right cephalic vein and proximal right brachiocephalic | | vein using 7 mm x 4 cm and 10 mm x 4 cm balloon catheters. MEDICATIONS: Isovue-200 40 | | cc, Heparin 3700 units intravenous, Versed 1 mg intravenous, fentanyl 25-mcg | | intravenous. Intra-procedure sedation time 32 minutes. The radiation dose 33 mGray, | | Fluoroscopy time 5.9 minutes. Appropriate physiologic monitoring, maintenance of | | adequate conscious sedation and independent assisted supervision performed | | throughout the procedure. PROCEDURE: Informed written consent obtained from the patient | | after explaining the procedure, risks and alternatives. Patient understood the | | discussion and expressed a wish to proceed.The appropriate side and site was labeled and | | initialed as an independent process antecedent to the imaging and intervention, as per | | protocol at this institution. Patient was placed supine on the x-ray table. The right | | arm prepped in the usual sterile fashion. Right arm brachiocephalic fistula was | | accessed using micropuncture needle and exchanged for 4-Citizen [place] micropuncture sheath. | | Initial fistula pressure was obtained and fistulogram obtained from the right cubital | | fossa to the right atrium. Given the focal, preocclusive stenosis in mid arm segment | | the cephalic vein and segmental occlusion of the distal cephalic vein and proximal right | | brachiocephalic vein, I decided to perform angioplasty of the venous lesions. 4-Citizen [place] | | micropuncture sheath was exchanged for 6-Citizen [place] short sheath over a 0.035, angled | | Glidewire. 7 mm x 4 cm balloon catheter was advanced over the 0.035, angled Glidewire. | | Balloon was positioned across stenosis in proximal cephalic vein and subsequently | | across the occlusion of the proximal right brachiocephalic vein performed in a distal to | | proximal fashion. Subsequently, balloon was exchanged for 7 mm x 4 cm high pressure | | conquest balloon and angioplasty the proximal cephalic venous stenosis performed. | | Subsequently, balloon was exchanged for 10 mm x 4 cm balloon catheter and angioplasty | | the occluded segment in right brachiocephalic vein performed. During inflation of the | | balloon across the venous anastomosis Reflux evaluation of the arteriovenous anastomosis | | obtained. Subsequently, balloon was deflated and a final fistulogram obtained from the | | right cubital fossa to the right atrium. Final fistula pressure and arterial | | pressures were obtained. All catheters and wires then removed and hemostasis obtained | | with manual pressure. No immediate procedural complications. Patient tolerated the | | procedure well. FINDINGS1. Initial fistula pressure 136/73 mm Hg, arterial pressure | | 159/86 mm Hg, final fistula pressure 76/48 mm Hg.2. 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 Arterial venous anastomoses widely patent.3. Successful | | recanalization of the occluded right brachiocephalic vein and angioplasty the | | significant focal stenosis mid arm segment of the right cephalic vein without incidence. | | IMPRESSION: 1. 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 49235, 88150, 63455, 25060-85, | | 40008-14 | | | | | + + IR Inj Dialysis Circuit (12/09/2014 7:43 PM PDT) + + | Specimen | + + | | + + + + + | Impressions | Performed At | + + + | 1. Successful recanalization of the significant occlusion in | | | proximal right brachiocephalic vein and focal, preocclusive stenosis | | | in proximal right cephalic vein using balloon angioplasty without | | | incidence. 61283, 86555, 49974, 88210-15, 89305-91 | | | | | + + + + + + | Narrative | Performed At | + + + | [facility] 12/09/2014 7:43 PM HISTORY: | | | 49 years. Male. With chronic kidney disease stage V presents with | | | increased venous pressures and prolonged bleeding after dialysis. | | | 585.6, 996.1 EXAMINATION Right brachiocephalic fistulogram and | | | angioplasty of the multiple tandem stenosis in mid right cephalic | | | vein and proximal right brachiocephalic vein using 7 mm x 4 cm and 10 | | | mm x 4 cm balloon catheters. MEDICATIONS: Isovue-200 40 cc, | | | Heparin 3700 units intravenous, Versed 1 mg intravenous, fentanyl | | | 25-mcg intravenous. Intra-procedure sedation time 32 minutes. The | | | radiation dose 33 mGray, Fluoroscopy time 5.9 minutes. Appropriate | | | physiologic monitoring, maintenance of adequate conscious sedation | | | and independent assisted supervision performed throughout the | [...] the | | | x-ray table. The right arm prepped in the usual sterile fashion. | | | Right arm brachiocephalic fistula was accessed using micropuncture | | | needle and exchanged for 4-Citizen [place] micropuncture sheath. Initial | | | fistula pressure was obtained and fistulogram obtained from the | | | right cubital fossa to the right atrium. Given the focal, | | | preocclusive stenosis in mid arm segment the cephalic vein and | | | segmental occlusion of the distal cephalic vein and proximal right | | | brachiocephalic vein, I decided to perform angioplasty of the venous | | | lesions. 4-Citizen [place] micropuncture sheath was exchanged for 6-Citizen [place] | | | short sheath over a 0.035, angled Glidewire. 7 mm x 4 cm balloon | | | catheter was advanced over the 0.035, angled Glidewire. Balloon was | | | positioned across stenosis in proximal cephalic vein and | | | subsequently across the occlusion of the proximal right | | | brachiocephalic vein performed in a distal to proximal fashion. | | | Subsequently, balloon was exchanged for 7 mm x 4 cm high pressure | | | conquest balloon and angioplasty the proximal cephalic venous | | | stenosis performed. Subsequently, balloon was exchanged for 10 mm x 4 | | | cm balloon catheter and angioplasty the occluded segment in right | | | brachiocephalic vein performed. During inflation of the balloon | | | across the venous anastomosis Reflux evaluation of the arteriovenous | | | anastomosis obtained. Subsequently, balloon was deflated and a final | | | fistulogram obtained from the right cubital fossa to the right | | | atrium. Final fistula pressure and arterial pressures were | | | obtained. All catheters and wires then removed and hemostasis | | | obtained with manual pressure. No immediate procedural | | | complications. Patient tolerated the procedure well. FINDINGS | | | 1. Initial fistula pressure 136/73 mm Hg, arterial pressure 159/86 | | | mm Hg, final fistula pressure 76/48 mm Hg. 2. Right | | | brachiocephalic fistulogram revealed tandem, preocclusive stenosis in | | | proximal right cephalic vein at the level of mid arm and segmental | | | occlusion of the distal right subclavian vein and proximal right | | | brachiocephalic vein. Arterial venous anastomoses widely patent. 3. | | | Successful recanalization of the occluded right brachiocephalic | | | vein and angioplasty the significant focal stenosis mid arm segment of | | | the right cephalic vein without incidence. | | + + + + + | Procedure Note | + + | Néstor, Rad Conversion - 02/06/2019 3:01 AM PDT [facility] | | FISTULAGRAM12/09/2014 7:43 PM HISTORY:49 years. Male. With chronic kidney disease stage | | V presents with increased venous pressures and prolonged bleeding after dialysis. | | 585.6, 996.1 EXAMINATION Right brachiocephalic fistulogram and angioplasty of the | | multiple tandem stenosis in mid right cephalic vein and proximal right brachiocephalic | | vein using 7 mm x 4 cm and 10 mm x 4 cm balloon catheters. MEDICATIONS: Isovue-200 40 | | cc, Heparin 3700 units intravenous, Versed 1 mg intravenous, fentanyl 25-mcg | | intravenous. Intra-procedure sedation time 32 minutes. The radiation dose 33 mGray, | | Fluoroscopy time 5.9 minutes. Appropriate physiologic monitoring, maintenance of | | adequate conscious sedation and independent assisted supervision performed | | throughout the procedure. PROCEDURE: Informed written consent obtained from the patient | | after explaining the procedure, risks and alternatives. Patient understood the | | discussion and expressed a wish to proceed.The appropriate side and site was labeled and | | initialed as an independent process antecedent to the imaging and intervention, as per | | protocol at this institution. Patient was placed supine on the x-ray table. The right | | arm prepped in the usual sterile fashion. Right arm brachiocephalic fistula was | | accessed using micropuncture needle and exchanged for 4-Citizen [place] micropuncture sheath. | | Initial fistula pressure was obtained and fistulogram obtained from the right cubital | | fossa to the right atrium. Given the focal, preocclusive stenosis in mid arm segment | | the cephalic vein and segmental occlusion of the distal cephalic vein and proximal right | | brachiocephalic vein, I decided to perform angioplasty of the venous lesions. 4-Citizen [place] | | micropuncture sheath was exchanged for 6-[place]izen [place] short sheath over a 0.035, angled | | Glidewire. 7 mm x 4 cm balloon catheter was advanced over the 0.035, angled Glidewire. | | Balloon was positioned across stenosis in proximal cephalic vein and subsequently | | across the occlusion of the proximal right brachiocephalic vein performed in a distal to | | proximal fashion. Subsequently, balloon was exchanged for 7 mm x 4 cm high pressure | | conquest balloon and angioplasty the proximal cephalic venous stenosis performed. | | Subsequently, balloon was exchanged for 10 mm x 4 cm balloon catheter and angioplasty | | the occluded segment in right brachiocephalic vein performed. During inflation of the | | balloon across the venous anastomosis Reflux evaluation of the arteriovenous anastomosis | | obtained. Subsequently, balloon was deflated and a final fistulogram obtained from the | | right cubital fossa to the right atrium. Final fistula pressure and arterial | | pressures were obtained. All catheters and wires then removed and hemostasis obtained | | with manual pressure. No immediate procedural complications. Patient tolerated the | | procedure well. FINDINGS1. Initial fistula pressure 136/73 mm Hg, arterial pressure | | 159/86 mm Hg, final fistula pressure 76/48 mm Hg.2. 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 Arterial venous anastomoses widely patent.3. Successful | | recanalization of the occluded right brachiocephalic vein and angioplasty the | | significant focal stenosis mid arm segment of the right cephalic vein without incidence. | | IMPRESSION: 1. 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 [id number], [id number], [id number], 70021-29, | | [id number] | | | | | + + documented in this encounter Visit Diagnoses + + | Diagnosis | + + | End stage renal disease (HCC) End stage renal disease | + + documented in this encounter
--- OUTSIDE RECORDS SUMMARY | ~2020-03-11 | XMS | Encounter Summary ---
Demographics + + + | Address | [address] | | | [place] [address] | + + + | Home Phone [...] + + + | Author | [facility] | | | and [place] | + + + | Organization | [facility] | | | and [...] Team Providers + +------+ + | Care Traffic Investigator Name | Role | Phone | + +------+ + | Andry Deng DO | PCP | | + +------+ + Encounter Details +--------+ + + + + | Date | Type | Department | Care Team | Description | +--------+ + + + + | 04/02/ | Orders Only | [facility] | Conversion | | | 2015 | | [facility]PHROLOG[facility] [place] | Transaction, | | | | | [address] [facility] | Provider Unknown | | | | | [place] | | | | | | [address] | (Fax) | | | | | [phone] | | | +--------+ + + + [...] + | BASIC METABOLIC | Routin | 04/02/2016 | | Results for this | | PANEL | e | 12:00 AM | | procedure are in the | | | | PDT | | results section. | + +--------+ + + + documented in this encounter Results Basic Metabolic Panel (04/02/2016 12:00 AM PDT) + + + + + + | Component | Value | Ref Range | Performed | Pathologist | | | | | At | Signature | + + + + + + | Glucose, | 107 (A) | 70 - 100 mg/dL | EXTERNAL | | | Fasting | | | LAB | | + + + + + + | BUN | 46 (A) | 6 - 23 mg/dL | EXTERNAL | | | | | | LAB | | + + + + + + | Creatinine | 9.20 (A) | 0.70 - 1.33 | EXTERNAL | | | | | mg/dL | LAB | | + + + + + + | BUN/Creatin | 5.0 (A) | 6.0 - 28.6 | EXTERNAL | | | ine Ratio | | | LAB | | + + + + + + | Calcium | 8.8 | 8.4 - 10.2 | EXTERNAL | | | | | mg/dL | LAB | | + + + + + + | Na | 131 (A) | 132 - 143 | EXTERNAL | | | | | mmol/L | LAB | | + + + + + + | K | 4.1 | 3.6 - 5.1 | EXTERNAL | | | | | mmol/L | LAB | | + + + + + + | Cl | 94 (A) | 95 - 112 mmol/L | EXTERNAL | | | | | | LAB | | + + + + + + | CO2 | 22 | 19 - 31 mmol/L | EXTERNAL | | | | | | LAB | | + + + + + + | Anion Gap | 19.1 | 7 - 21 mmol/L | EXTERNAL | | | | | | LAB | | + + + + + + | Estimated | 6 | mg/dL | EXTERNAL | | | GFR | | | LAB | | + [...]
--- OUTSIDE RECORDS SUMMARY | ~2020-03-11 | XMS | Encounter Summary ---
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 Operator Helper Name | Role | Phone | + +------+ + PCP | Unavailable | + +------+ + Encounter Details +--------+ + + + + | Date | Type | Department | Care Team | Description | +--------+ + + + + | 10/08/ | Hospital | [facility] | Katie, | Pain; Hyperkalemia; | | 2017 - | Encounter | [facility] | MD Frank [address] | ESRD (end stage | | | | CARE FLOOR [address] | renal disease) ([facility]) | | 10/09/ | | [address] | [place] [address] | | | 2016 | | [place], [place] | [phone] | | | | | [address] | | | | | | [phone] | | | +--------+ + + + [...] + + + | Blood Pressure | 158/70 | 10/09/2016 4:03 PM | | | | | PDT | | + + + + + | Pulse | 83 | 10/09/2016 4:03 PM | | | | | PDT | | + + + + + | Temperature | 36.5 C (97.7 F) | 10/09/2016 4:03 PM | | | | | PDT | | + + + + + | Respiratory Rate | 18 | 10/09/2016 4:03 PM | | | | | PDT | | + + + + + | Oxygen Saturation | - | - | | + + + + + | Inhaled Oxygen | - | - | | | Concentration | | | | + + + + + | Weight | 79.9 kg (176 lb 3.2 | 10/09/2016 4:03 PM | | | | oz) | PDT | | + + + + + | Height | 170.2 cm (5' 7") | 10/09/2016 4:03 PM | | | | | PDT | | + + + + + | Body Mass Index | 27.6 | 10/09/2016 4:03 PM | | | | | PDT | | + + + + + documented in this encounter Discharge Summaries Gale Cuellar MD - 10/09/2016 3:01 PM PDTFormatting of this note might be differen t from the original. Discharge Summaries by Gale Cuellar MD at 10/09/16 1501 Author: Gale Cuellar MD Service: Hospitalist Author Type: Physician Filed: 10/09/16 1550 Date of Service: 10/09/161500 Status: Signed 911 Telecommunicator: Gale Cuellar MD (Physician) [facility] Service: Hospitalist Physician Discharge Summary Patient ID: Carol Potter 1965 51 y.o. Admit date: 10/08/2016 Discharge date: Admitting Physician: Frank Wilson MD Discharge Physician: Gale Cuellar MD Consultants: Treatment Team: Consulting Physician: Cosmo Soria MD Admitting Provider: Frank Wilson MD Primary Discharge Diagnoses: Principal Problem: Hyperkalemia Active Problems: Secondary renal hyperparathyroidism (HCC) Hypothyroidism 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) ESRD (end stage renal disease) on dialysis (HCC) Anemia of chronic kidney failure Hyponatremia Chest pain, unspecified HPI and Hospital Course: Per H&P "The patient is 51 y.o. male with significant past medical history of hypertension, hyperlipidemia, end-stage renal disease on hemodialysis, diabetes mellitus, hypothyroidism, asthma, history of MSSA bacteremia who presents with hyperkalemia, chest pain Patient was recently discharged from [facility] on 09/17/16 for full note please see discharge s madyson from hospitals. In summary the patient was admitted, at that point, due to hyperkale titi secondary to patient missing his dialysis appointments. He underwent revascularization with stent placement by IR on 09/11/2016 due to AV fistula malfunctioning. Which unfortunate ly, was complicated by pericardial perforation requiring a pericardial drain placement by ca rdiology. The drain remain in place for 2 days and then was removed. Follow-up echo did no t demonstrate any significant reaccumulation of fluid. The patient had a tunneled femoral c atheter placed on admission for dialysis. His fistula was reaccessed with success on 017. The femoral catheter was removed and the patient was discharged home. Patient refers not been very compliant with his renal diet and is concerned that he may had some high potassium drinks over the weekend. Yesterday, while at rest at home he started d eveloping chest discomfort. The chest pain was located in the retrosternal lower area, 9 ou t of 10 of intensity, sharp in quality, not radiated, with no specific trigger or element th at increase or decrease his discomfort. This chest pain was associated with a dyspnea but n o nausea, vomiting or sweating. Positive for palpitations but denies any lightheadedness or syncope. No recent fever, chills or night sweats. No history of cough, sputum production. Denies any recent lower extremity edema, paroxysmal nocturnal dyspnea or orthopnea. He went to [facility] where he was found hyperkalemic with negative EKG signs of potassium toxicity. The patient received calcium gluconate, bicarbonate, albuterol and Kyde x leg. Patient refers that with these measures his chest discomfort disappeared, and since then he has remained chest pain-free. Patient was subsequently transferred to [facility] for further management and due to lack of ar phrology coverage. ED provider already consulted nephrology, Dr. Soria. Patient will be admitted under the hospital service for further management." 10/09/16 For Discharge: Patient admitted for: Chest Pain (resolved) with elevated K+-7.2 (at [facility]). K-6.2 here at [facility] 08/2016 echocardiogram-overall left ventricular systolic function was normal with EF 55-60% with Echo on this admit without changed.. No pericardial effusion Troponin I- < 0.020 EKG-normal sinus rhythm. no acute ST changes and no P waves. Normal QRS duration. Mild p rolonged QT corrected at 484 Chest x-ray-no obvious consolidation -Ruled out cardiac etiologies including acute coronary syndrome, pericardial perforation an d pericardial effusion -EKG showed no signs of potassium toxicity -End-stage renal disease on hemodialysis. Saturday and Saturday. With history of mi ssing appointments. Dialyzed with renal for discharge -Asthma. With no current signs of exacerbation -History of tobacco abuse and marijuana use--educated -Hypertension -Diabetes type 2--stable -Hypothyroidism All questions were answered for patient who agree to plan. He was educated, and discharged in good and stable condition. Past Medical History: Past Medical History Diagnosis Date Hyperlipidemia Hypertension Thyroid disease Anemia Abdominal pain, right upper quadrant 04/13/2012 Dialysis patient ([facility]) GI bleed 04/30/2012 from coumadin Walker as ambulation aid Gout Asthma pt not using inhaler any more, no symptoms DVT (deep venous thrombosis) ([facility]) x3 AV fistula ([facility]) lt arm Knee pain, right 07/06/2012 MSSA (methicillin susceptible Staphylococcus aureus) infection 04/11/2012 Anemia due to blood loss 04/30/2012 Amphetamine and other psychostimulant dependence, continuous 04/02/2012 Hyperphosphatemia 05/24/2012 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 Rash and nonspecific skin eruption 04/03/2012 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 Neuromuscular disorder ([facility]) neuropathy Hyperkalemia 11/09/2013 Chronic obstructive asthma with exacerbation ([facility]) 10/27/2013 SOB (shortness of breath) 10/27/2013 Diabetes mellitus type I ([facility]) Hyponatremia 09/08/2016 Chronic systolic heart failure ([facility]) 09/10/2016 Past Surgical History Procedure Laterality Date Unlisted procedure arthroscopy shoulder rt , ligaments Superficialization of av fistula Right 03/30/2014 Procedure: AV FISTULA - SUPERFICIALIZATION; Surgeon: Oskar Meyer MD; Location: [facility] MAIN OR; Service: Vascular; Laterality: Right; Av fistula placement Right 02/09/2014 Procedure: AV FISTULA; Surgeon: Oskar Meyer MD; Location: [facility] MAIN OR; Service: Vascul ar; Laterality: Right; Av fistula repair Left 07/11/2012 Procedure: AV FISTULA - GRAFT REPAIR/REVISION; Surgeon: Oskar Meyer MD; Location: [facility] A[facility]; Service: Vascular; Laterality: Left; Superficialization of brachiobasilic fistula and right IJ perm cath insertion Dialysis fistula creation Left 07/11/2012 Procedure: DIALYSIS CATHETER - INSERTION; Surgeon: Oskar Meyer MD; Location: [facility] MAIN O R; Service: Vascular; Laterality: Left; removed dialysis catheter from left neck and plac ed new on in left chest, attempted in right neck but unable to place Catheter removal Right 07/07/2012 Procedure: DIALYSIS CATHETER - REMOVAL; Surgeon: Oskar Meyer MD; Location: [facility] BEDSIDE PROCEDURE; Service: General; Laterality: Right; perm cath Dialysis fistula creation Left 07/07/2012 Procedure: DIALYSIS CATHETER - INSERTION; Surgeon: Oskar Meyer MD; Location: [facility] BEDSID E PROCEDURE; Service: General; Laterality: Left; temporary dialysis catheter Knee arthroscopy Right 07/07/2012 Procedure: KNEE - ARTHROSCOPY; Surgeon: Favio Raza MD; Location: [facility] MAIN OR; S ervice: Orthopedics; Laterality: Right; After 1530 Av fistula placement Left 05/06/2012 Procedure: AV FISTULA; Surgeon: Oskar Meyer MD; Location: [facility] MAIN OR; Service: Vascul ar; Laterality: Left; Left arm possible right Colonoscopy with egd N/A 05/01/2012 Procedure: COLONOSCOPY W/ EGD; Surgeon: John Singleton MD; Location: [facility] ENDOSCOPY; Se rvice: Gastroenterology; Laterality: N/A; Discharged Condition: Stable for discharge as stated above. Significant Diagnostic Studies: Nm Myocardial Perfusion Spect (stress And Rest) 10/09/2016 1. I see no evidence of ischemia. 2. Probable artifactual attenuation of the i nferior wall and proximal anterior wall. 3. No definite infarct. 4. LVEF 52% stress, 43% r est. I believe the rest EF is artifactually low, given there is normal LV wall motion. Using the risk stratification system at our institution, this examination equates to at least a l ow risk based on this imaging, arising from the criteria below (1). Note that this should be interfaced with clinical and other data, potentially affecting final categorization. 1. [employer] [employer] and [place] [employer] Scientific Statement. Parish romo (2007); 118: p 9065-6338 Echo Cardiac Adult Complete 10/09/2016 1. Overall left ventricular systolic function is normal with, an EF between 60 - 65 %. 2. Mild asymmetric septal hypertrophy with septal thickness 13 - 15 mm. Discharge Vitals: Filed Vitals: 10/09/16 0011 10/09/16 0410 10/09/16 0813 10/09/16 1246 BP: 125/60 140/70 127/66 161/84 Pulse: 86 82 80 Temp: 97.6 F (36.4 C) 97.8 F (36.6 C) 97.9 F (36.6 C) 97.7 F (36.5 C) TempSrc: Axillary Axillary Oral Oral Resp: 17 18 Height: Weight: SpO2: 98% 100% 97% 98% Discharge Exam: General: Well nourished. Psych: Alert and oriented x 3. Calm, cooperative. Cardiovascular: Regular rate and rhythm, no murmurs, no thrills. Normal PMI. Respiratory: Clear to auscultation, no wheezing or crackles, breathing non labored. Gastrointestinal: Soft, non-tender, non-distended, positive bowel sounds. No HSM. Musculoskeletal: No edema in bilateral lower extremities. No joint swelling. Skin: Warm and dry, no rashes. Neck: No JVD, Trachea midline. Neurological: Non focal. Motor grossly intact. LABS: Recent Labs Lab 10/09/16 0420 10/08/16 0239 10/08/16 0216 WBC 5.47 9.28 SPECIMEN CLOTTED, SAMPLE TO BE REDRAWN RBC 3.06* 3.02* SPECIMEN CLOTTED, SAMPLE TO BE REDRAWN HGB 8.8* 8.8* SPECIMEN CLOTTED, SAMPLE TO BE REDRAWN HCT 26.7* 26.7* SPECIMEN CLOTTED, SAMPLE TO BE REDRAWN MCV 87.4 88.2 SPECIMEN CLOTTED, SAMPLE TO BE REDRAWN MCH 28.9 29.0 SPECIMEN CLOTTED, SAMPLE TO BE REDRAWN MCHC 33.1 32.9 SPECIMEN CLOTTED, SAMPLE TO BE REDRAWN RDW 52.9 51.6 SPECIMEN CLOTTED, SAMPLE TO BE REDRAWN PLT 312 306 SPECIMEN CLOTTED, SAMPLE TO BE REDRAWN MPV 6.8 6.3 SPECIMEN CLOTTED, SAMPLE TO BE REDRAWN DIFFTYPE AUTOMATED AUTOMATED SPECIMEN CLOTTED, SAMPLE TO BE REDRAWN Recent Labs Lab 10/09/16 0420 10/08/16 1936 10/08/16 1559 10/08/16 0216 NA 132* 134* 134* < > 131* K 5.2* 5.0* 4.7 < > 6.2* CL 95* 95* 95* < > 93* CO2 28 33* 34* < > 27 BUN 30* 24 20 < > 61* CREATININE 5.2* 4.6* 4.2* < > 8.5* PROT 7.0 -- -- -- 7.8 BILITOT 0.4 -- -- -- 0.5 ALT 20 -- -- -- 25 AST 17 -- -- -- 32 GLUF 156* 152* 103* < > 88 < > = values in this interval not displayed. Recent Labs Lab 10/08/16 1001 10/08/16 0622 10/08/16 0216 CKTOTAL 65 66 209 TROPONINI <0.020 <0.020 <0.020 CKMBINDEX 4.0 4.1 2.1 Recent Labs Lab 10/09/16 0420 PHOS 2.3 Recent Labs Lab 10/09/16 0420 MG 2.5* Invalid input(s): ABG Disposition: Home or Self Care Follow [place]: [place] [address] [place] [address] Medication List START taking these medications polyethylene glycol packet QTY: 14 each Refills: 0 Commonly known as: GLYCOLAX Take 17 g by mouth daily as needed. CHANGE how you take these medications albuterol [...] 0 Commonly known as: COREG Cholecalciferol 2000 units Tabs Refills: 0 fluticasone-salmeterol [...] tablet Refills: 0 Commonly known as: ZOFRAN-ODT RENVELA 800 MG tablet QTY: 300 tablet Refills: 1 Generic drug: sevelamer take 3 tablets by mouth three times a day WITH MEALS AND 1 TABLET WITH SNACKS sodium bicarbonate 650 MG tablet Refills: 0 STOP taking these medications furosemide 20 MG tablet Commonly known as: LASIX Where to Get Your Medications These medications were sent to [facility] [facility] [place] [facility] [address] [facility] [address] [place] [address] - polyethylene glycol packet Gale Cuellar MD 10/09/2016 3:01 PM Discharge took >30 minutes, to include final examination, discussion of admission, and pre paration of prescriptions, instructions for ongoing care, follow up and dictation of summary . documented in t his encounter Medications at Time of Discharge + [...] | ondansetron | | | 0 | 04/12/20 | | | (ZOFRAN ODT) 8 mg [...] Progress Notes Conversion Transaction, Provider Unknown - 10/09/2016 2:45 PM PDTFormatting of this note m ight be different from the original. Nurse Progress Note by Lina Roberts RN at 10/09/16 9798 Author: Lina Roberts RN Service: (none) Author Type: Registered Nurse Filed: 10/09/16 1446 Date of Service: 10/09/16 4945 Status: Signed 911 Telecommunicator: Lina Roberts RN (Registered Nurse) Discussed all discharge and prescription information with patient. Patient verbalized an un derstanding of all discharge and prescription information. All personal belongings with pat ient at time of discharge. TELE notified. Cosmo Lang MD - 10/09/2016 11:14 AM PDTFormatting of this note might be different from the or iginal. Progress Notes by Cosmo Soria MD at 10/09/16 1114 Author: Cosmo Soria MD Service: Nephrology Author Type: Physician Filed: 10/09/16 4943 Date of Service: 10/09/16 1114 Status: Signed 911 Telecommunicator: Cosmo Soria MD (Physician) [id number] Carol Potter is a 51 y.o. man whose PCP is Dr. ANDRY DENG. He is known to have ESRD as per PMH> He was recently discharged from [facility] (admitted 09/07/16-09/15/16) where he had a complicated s pancho including development of pericardial effusion s/p attempt at angioplasty for central dawson ous stenosis (done for poorly functioning right UE AVF). He had a pericardial drain put in which was removed prior to discharged. He had uncomplicated HD Saturday and apparently had been drinking a lot of apple/moy juice . Saturday around 6 pm he began to have severe, acute onset of left sided chest pain without ra diation but with shortness of breath. He presented to ED at [facility] where he was found to have severe hyperkalemia (no EKG changes). He was treated medically and was transferred to [facility] for urgent dialysis. The pain resolved after treatment. At [facility] he was hypertensive without tachycardia/fever/hypoxia. Lab work up showed normal cardiac enzymes and hyperkalemia with K of 6.2. He was admitted and set up for dialysis first thing in the morning. 10/09/2016 He is seen with his . He feels OK now and denied any fever, chills, nausea, vomiting, diarrhea, shortness of briseida th, chest pain, cough. PMH, PSH, Social history, medications, allergies, labs and imaging reviewed as appropriate. Previous history summarized as above. Prior lab data and imaging reviewed. Old records and labs were reviewed and summarized as above. Significant medical/surgical history: ESRD secondary to Biopsy-proven Diabetic nephropathy. He is dialyzed Saturday an d Saturday at [place] dialysis unit using right UE AVF (Dr. [...] described. 09/26/2016 Hemopericardium treated with pericardial drain. Family/social history: There is no family history [...] Alert awake and oriented sitting up in chair in no distress. No asterixis. HEENT: No [...] clotted Right UE brachiocephalic AVF with bruit Vital Signs: BP 127/66 mmHg | Pulse 82 | Temp(Src) 97.9 F (36.6 C) (Oral) | Resp 20 | Ht 1.702 m (5' 7") | Wt 79.924 kg (176 lb 3.2 oz) | BMI 27.59 kg/m2 | SpO2 97% Data evaluation: Lab Results Component Value Date BUN 30* 10/09/2016 CREATININE 5.2* 10/09/2016 EGFR 12* 10/09/2016 NA 132* 10/09/2016 K 5.2* 10/09/2016 CL 95* 10/09/2016 CO2 28 10/09/2016 CA 8.6 10/09/2016 PHOS 2.3 10/09/2016 MG 2.5* 10/09/2016 ALB 2.9* 10/09/2016 HGB 8.8* 10/09/2016 Lab Results Component Value Date K 5.2* 10/09/2016 K 5.0* 10/08/2016 K 4.7 10/08/2016 Nm Myocardial Perfusion Spect (stress And Rest) 10/09/2016 showed no evidence of ischemia. Echo 10/09/2016 showed EF between 60 - 65 %. Assessment and Recommendations: ESRD on HD Hyperkalemia Anemia of chronic renal failure Hyperkalemia is likely from dietary indiscretion and improved although not completely resol roselyn. He has been instructed on low K diet. Access is working OK. BP is Ok. He is Clinically euvolemic. Anemia is moderate. From my perspective he may be discharged to resume outpatient HD MWF using right UE AVF. Fisher Line evaluation for low K diet on follow up. I discussed with him the concept of [...] Plan of care was discussed with Dr. Cuellar. COSMO SORIA MD 10/09/2016 Portions of my previous notes have been carried over for continuity of care. He was seen earlier in the day and charting was completed later after rounds. Dictation software, [employer], was used which may contain error for similar sounding words. Pe rsonal communication is requested for any clarification. Prognosis guarded in view of multiple comorbid illnesses and ESRD amLODIPine 10 mg Oral Daily aspirin 325 mg Oral Daily with breakfast atorvastatin 40 mg Oral Nightly budesonide-formoterol 2 puff Inhalation 2 times daily carvedilol 3.125 mg Oral BID WC epoetin alena 10,000 Units Intravenous Once per day on Sat famotidine 20 mg Oral Daily Or famotidine 20 mg Intravenous Daily insulin lispro (human) 0-3 Units Subcutaneous Nightly insulin lispro (human) 0-6 Units Subcutaneous TID AC levothyroxine 75 mcg Oral QAM AC sevelamer 1,600 mg Oral TID WC sodium chloride (PF) 10 mL Intravenous Q8H onversion Transactio n, Provider Unknown - 10/09/2016 4:46 AM PDT Nurse Progress Note by Hunter Cuello RN at 10/09/16445 Author: Hunter Cuello RN Service: (none) Author Type: Registered Nurse Filed: 10/09/16 7307 Date of Service: 04/18/17 0446 Status: Signed 911 Telecommunicator: Hunter Cuello RN (Registered Nurse) Pt has been A/O x4, VSS, C/O pain x1, tylenol was given x1. Will continue to monitor. Afua Cuello RN. onver quique Transaction, Provider Unknown - 10/08/2016 4:59 PM PDT Nurse Progress Note by Augustus Rivers RN at 10/08/161658 Author: Augustus Rivers RN Service: (none) Author Type: Registered Nurse Filed: 10/08/16 1701 Date of Service: 10/08/161658 Status: Signed 911 Telecommunicator: Augustus Rivers RN (Registered Nurse) Pt A&O, VSS except BPs ranging 120's-160's systolic, pt dines chest pain or SOB. Pt had ratna lysis this AM. Ambulating in the room independently. Pt states feeling much better than when he first arrived. Otherwise no acute changes since previous assessment. Will continue to mo nitor. Augustus Rivers RN onver quique Transaction, Provider Unknown - 10/08/2016 4:10 PM PDT Progress Notes by Tracey Maldonado RD at 10/08/16 1610 Author: Tracey Maldonado RD Service: (none) Author Type: Registered Dietitian Filed: 10/08/16 1612 Date of Service: 10/08/16 1610 Status: Signed 911 Telecommunicator: Tracey Maldonado RD (Registered Dietitian) 10/08/16 1600 Subjective Timepoint Admit Pt c/o Nutrition consult received to provide low potassium diet education. Pt was admitted with hyperkalemia; he reports he drank a lot of moy-apple juice this weekend and believes this is what caused an elevation. Pt reports he was having chest pain when he was first adm itted, but is feeling better now. Pt had HD this AM and he regularly receives HD on Mon, Wed , Fri. Reported by Patient Diet Experience Self-selected diet(s) followed Pt states he does not follow the renal diet as well as he sh ould at home. Pt has DM and on 09/13 his hemoglobin A1c was 6.0 which is wnl and indicates g ood BG control for the past 3 months. Fluid / Beverage Intake Oral Fluids Amount Ad lisa Food Intake Amount of Food Pt states he is eating very well and has a good appetite. Ordered pt dinner special. Micronutrient Intake Mineral / Element Intake (kayexalate) Food and Nutrition Knowledge Area(s) and Level of Knowledge Discussed importance of following a low potassium diet. Pt s tated he was feeling heart pain prior to admit, explained to pt when his K levels are elevat ed it causes extra strain on the heart. Pt states he is not entirely sure which foods are hi gh in potassium, other than bananas and potatoes. Provided pt with lists of foods with their serving size and how much potassium is in it. Encouraged pt to talk to his dietitian and ne phrologist about how much K he is allowed in the day. Told pt having a food diary where he w rites down the food and how much potassium is in it can be helpful to monitor K intake daily . Provided multiple handouts on potassium foods. Pt expressed appreciation and had no furthe r questions. Nutrition-Focused Physical Findings Overall Appearance Pt appears well-nourished. Body Language Pleasant to speak with. Digestive System (Mouth to Rectum) Multiple teeth missing; denies any issues with chewing o r swallowing. Anthropometrics Weight change Pt states he has not lost or gained any wt recently; other than wt from fluid s between HD sessions. Pt was admitted at 78.5 kg, is 117% of his IBW, and has a BMI of 27.5 8 - indicates overweight. Will continue to monitor. Biochemical data, medical tests, and procedures reviewed Biochemical data, medical tests, and procedures reviewed Na 129 (L), K 5.9 (H), BG 177 (H) - insulin ordered, BUN and Cr both elevated - on HD and has ESRD. Recommendations Recommended energy needs Continue renal, diabetic, cardiac diet as ordered. Encourage intak e of consistent meals/snacks throughout the day. Will continue to follow per nutrition mike col. Nutritional Risk Nutritional risk Low Follow up date 10/15/[address] onver quique Transaction, Provider Unknown - 10/08/2016 12:27 PM PDT Case Management by Heber Escobar RN at 10/08/16 1227 Author: Heber Escobar RN Service: (none) Author Type: Registered Nurse Filed: 10/08/16 1230 Date of Service: 10/08/167 Status: Signed 911 Telecommunicator: Heber Escobar RN (Registered Nurse) 10/08/16 1226 Discharge Planning Evaluation Admitting Diagnosis Hyperkalemia Readmission No Living Arrangements Spouse/significant other;Children Support Systems Spouse/significant other;Children Type of Residence Private residence Independent with ADL's Yes Independent with Mobility Yes Mental Status Oriented Anticipated Discharge Plan Post Acute Care Needs None at this time Plan communicated to patient/family Yes Resources Transportation issues No Patient/Family concerns No Prescription Plan Yes Previous home health equipment No Anticipated Disposition Facility Type Home Met with: Carol and discussed discharge planning, Pt is a 51 y.o., male who is independent and lives in [place]. He lives with his and 2 sons. Carol doesn't use any DME and den ies having any concerns for discharge. Patient's PCP is:Dr. Deng Patient's insurance:Medicare/Medicare/[place] Coverage concerns:none Medication coverage/concerns: yes/no Community resources utilized / needed: [facility] M-W-F Assistance in transportation: family Identification of any specific education / training:none Barriers to Discharge / Alternative housing needed: none Anticipated DCP: Home with his family Heber Escobar onver quique Transaction, Provider Unknown - 10/08/2016 6:19 AM PDT Progress Notes by Yasmin Jordan RPH at 10/08/16618 Author: Yasmin Jordan RPH Service: (none) Author Type: Pharmacist Filed: 10/08/16619 Date of Service: 10/08/16618 Status: Signed 911 Telecommunicator: Yasmin Jordan RPH (Pharmacist) Lovenox dc'd by Dr. Yang JORDAN 10/08/2016 6:19 AM onver quique Transaction, Provider Unknown - 10/08/2016 6:18 AM PDT Progress Notes by Yasmin Jordan RPH at 10/08/16617 Author: Yasmin Jordan RPH Service: (none) Author Type: Pharmacist Filed: 10/08/16617 Date of Service: 10/08/16617 Status: Signed 911 Telecommunicator: Yasmin Jordan RPH (Pharmacist) Clinical Pharmacy Note: Renal Monitoring Carol Potter 51 y.o. male Ht Readings from Last 1 Encounters: 10/08/16 1.702 m (5' 7") Wt Readings from Last 1 Encounters: 10/08/16 81.602 kg (179 lb 14.4 oz) CREATININE Date Value Ref Range Status 10/08/2016 8.5* 0.70 - 1.30 mg/dL Final CREATININE: 8.5 mg/dL ABNORMAL (10/08/16215) Estimated creatinine clearance - 10.3 mL/min Decrease enoxaparin to 30mg SQ daily for CrCl < 30 ml/min. Pharmacy dosing for renal functi on per Dr. Wilson. Pharmacy will continue to monitor for changes in medication orders and in renal function and adjust accordingly. Yasmin Jordan R.Ph 10/08/2016 6:16 AM docume nted in this encounter H&P Notes Frank Wilson MD - 10/08/2016 4:58 AM PDTFormatting of this note might be diffe rent from the original. H&P by Frank Wilson MD at 10/08/16457 Author: Frank Wilson MD Service: Hospitalist Author Type: Physician Filed: 10/08/16 0539 Date of Service: 10/08/16457 Status: Signed 911 Telecommunicator: Frank Wilson MD (Physician) [facility] Service: Hospitalist Admission History & Physical Date of Admission: 10/08/2016 Requesting Physician: Dr Melvin, Emergency Department Reason for Admission: Hyperkalemia, chest pain History Obtained From: patient CHIEF COMPLAINT: Chest pain HISTORY OF PRESENT ILLNESS The patient is 51 y.o. male with significant past medical history of hypertension, hyperlip idemia, end-stage renal disease on hemodialysis, diabetes mellitus, hypothyroidism, asthma, history of MSSA bacteremia who presents with hyperkalemia, chest pain Patient was recently discharged from [facility] on 09/17/16 for full note please see discharge s madyson from hospitals. In summary the patient was admitted, at that point, due to hyperkale titi secondary to patient missing his dialysis appointments. He underwent revascularization with stent placement by IR on 09/11/2016 due to AV fistula malfunctioning. Which unfortunate ly, was complicated by pericardial perforation requiring a pericardial drain placement by ca rdiology. The drain remain in place for 2 days and then was removed. Follow-up echo did no t demonstrate any significant reaccumulation of fluid. The patient had a tunneled femoral c atheter placed on admission for dialysis. His fistula was reaccessed with success on 017. The femoral catheter was removed and the patient was discharged home. Patient refers not been very compliant with his renal diet and is concerned that he may had some high potassium drinks over the weekend. Yesterday, while at rest at home he started d eveloping chest discomfort. The chest pain was located in the retrosternal lower area, 9 ou t of 10 of intensity, sharp in quality, not radiated, with no specific trigger or element th at increase or decrease his discomfort. This chest pain was associated with a dyspnea but n o nausea, vomiting or sweating. Positive for palpitations but denies any lightheadedness or syncope. No recent fever, chills or night sweats. No history of cough, sputum production. Denies any recent lower extremity edema, paroxysmal nocturnal dyspnea or orthopnea. He went to [facility] where he was found hyperkalemic with negative EKG signs of potassium toxicity. The patient received calcium gluconate, bicarbonate, albuterol and Kyde x leg. Patient refers that with these measures his chest discomfort disappeared, and since then he has remained chest pain-free. Patient was subsequently transferred to [facility] for further management and due to lack of ne phrology coverage. ED provider already consulted nephrology, Dr. Soria. Patient will be admitted under the hospital service for further management REVIEW OF SYSTEMS Review of Systems Constitutional: Positive for fatigue. Negative for fever and chills. HENT: Negative for postnasal drip and rhinorrhea. Respiratory: Negative for apnea, cough, choking, shortness of breath and wheezing. Cardiovascular: Positive for chest pain. Negative for palpitations and leg swelling. Gastrointestinal: Negative for nausea, vomiting, abdominal pain, diarrhea and abdominal dis tention. Genitourinary: Negative for dysuria and difficulty urinating. Musculoskeletal: Negative for back pain and arthralgias. Skin: Negative for color change. Neurological: Negative for dizziness, syncope and headaches. Psychiatric/Behavioral: Negative for confusion and agitation. Past Medical History Diagnosis Date Hyperlipidemia Hypertension Thyroid disease Anemia Abdominal pain, right upper quadrant 04/13/2012 Dialysis patient ([facility]) GI bleed 04/30/2012 from coumadin Walker as ambulation aid Gout Asthma pt not using inhaler any more, no symptoms DVT (deep venous thrombosis) ([facility]) x3 AV fistula ([facility]) lt arm Knee pain, right 07/06/2012 MSSA (methicillin susceptible Staphylococcus aureus) infection 04/11/2012 Anemia due to blood loss 04/30/2012 Amphetamine and other psychostimulant dependence, continuous 04/02/2012 Hyperphosphatemia 05/24/2012 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 Rash and nonspecific skin eruption 04/03/2012 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 Neuromuscular disorder ([facility]) neuropathy Hyperkalemia 11/09/2013 Chronic obstructive asthma with exacerbation ([facility]) 10/27/2013 SOB (shortness of breath) 10/27/2013 Diabetes mellitus type I ([facility]) Hyponatremia 09/08/2016 Chronic systolic heart failure ([facility]) 09/10/2016 Past Surgical History Procedure Laterality Date Unlisted procedure arthroscopy shoulder rt , ligaments Superficialization of av fistula Right 03/30/2014 Procedure: AV FISTULA - SUPERFICIALIZATION; Surgeon: Oskar Meyer MD; Location: [facility] MAIN OR; Service: Vascular; Laterality: Right; Av fistula placement Right 02/09/2014 Procedure: AV FISTULA; Surgeon: Oskar Meyer MD; Location: [facility] MAIN OR; Service: Vascul ar; Laterality: Right; Av fistula repair Left 07/11/2012 Procedure: AV FISTULA - GRAFT REPAIR/REVISION; Surgeon: Oskar Meyer MD; Location: [facility] OR; Service: Vascular; Laterality: Left; Superficialization of brachiobasilic fistula and right IJ perm cath insertion Dialysis fistula creation Left 07/11/2012 Procedure: DIALYSIS CATHETER - INSERTION; Surgeon: Oskar Meyer MD; Location: [facility] MAIN O R; Service: Vascular; Laterality: Left; removed dialysis catheter from left neck and plac ed new on in left chest, attempted in right neck but unable to place Catheter removal Right 07/07/2012 Procedure: DIALYSIS CATHETER - REMOVAL; Surgeon: Oskar Meyer MD; Location: [facility] BEDSIDE PROCEDURE; Service: General; Laterality: Right; perm cath Dialysis fistula creation Left 07/07/2012 Procedure: DIALYSIS CATHETER - INSERTION; Surgeon: Oskar Meyer MD; Location: [facility] BEDSID E PROCEDURE; Service: General; Laterality: Left; temporary dialysis catheter Knee arthroscopy Right 07/07/2012 Procedure: KNEE - ARTHROSCOPY; Surgeon: Favio Raza MD; Location: [facility] MAIN OR; S ervice: Orthopedics; Laterality: Right; After 1530 Av fistula placement Left 05/06/2012 Procedure: AV FISTULA; Surgeon: Oskar Meyer MD; Location: [facility] MAIN OR; Service: Vascul ar; Laterality: Left; Left arm possible right Colonoscopy with egd N/A 05/01/2012 Procedure: COLONOSCOPY W/ EGD; Surgeon: John Singleton MD; Location: [facility] ENDOSCOPY; Se rvice: Gastroenterology; Laterality: N/A; No current facility-administered medications on file prior to encounter. Current Outpatient Prescriptions on File Prior to Encounter Medication Sig Dispense Refill allopurinol (ZYLOPRIM) 100 MG tablet Take 100 mg by mouth daily. Indications: Primary G out amLODIPine (NORVASC) 10 MG tablet Take 10 mg by mouth daily. aspirin 81 MG tablet Take 81 mg by mouth daily. carvedilol (COREG) 3.125 MG tablet Take 3.125 mg by mouth 2 (two) times daily with meal s. furosemide (LASIX) 20 MG tablet Take 20 mg by mouth daily. levothyroxine (SYNTHROID) 75 MCG tablet Take 75 mcg by mouth every morning before break fast. Indications: Underactive Thyroid acetaminophen (TYLENOL) 325 MG tablet Take 650 mg by mouth every 6 (six) hours as neede d. Indications: Pain albuterol (PROVENTIL HFA) 108 (90 BASE) MCG/ACT inhaler Inhale 2 puffs into the lungs e very 4 (four) hours as needed for Wheezing. (Patient taking differently: Inhale 2 puffs into the lungs every 4 (four) hours as needed for Wheezing. Took last night) 1 Inhaler 1 b complex-vitamin c-folic acid (NEPHRO-THU) 0.8 MG TABS Take 1 tablet by mouth daily. budesonide-formoterol (SYMBICORT) 160-4.5 MCG/ACT inhaler Inhale 2 puffs into the lungs 2 (two) times daily. 2 each 0 Cholecalciferol 2000 UNITS TABS Take 1 tablet by mouth daily. fluticasone-salmeterol (ADVAIR DISKUS) 250-50 MCG/DOSE Inhale 1 puff into the lungs 2 ( two) times daily. 60 each 0 montelukast (SINGULAIR) 10 MG tablet Take 1 tablet by mouth nightly. 30 tablet 0 RENVELA 800 MG tablet take 3 tablets by mouth three times a day WITH MEALS AND 1 TABLET WITH SNACKS 300 tablet 1 sodium bicarbonate 650 MG tablet Take 1,300 mg by mouth 2 (two) times daily. Immunizations: Influenza: Pneumoccocal: Allergies Allergen Reactions Azithromycin Rash Unknown Lisinopril Other (See Comments) "makes me sweat and knocked me out" Penicillins Other (See Comments) Unknown- not sure 10/08/12: Patient tolerated Ceftriaxone during previous admissions. (Not in a hospital admission) Family History Problem Relation Age of Onset Heart disease Mother Heart disease Father Diabetes Father Cancer Father colon cancer Social History Social History Marital Status: Spouse [...] KIDS. CURRENTLY UNEMPLOYED, BEFOR E WORKED AT [employer] [place] [employer]. Quit METHAMPHETAMINES PER PATIENT after t he ARF in mar 2012. FATHER HAS COLON CANCER, HEART DISEASE, MOTHER 15 YEARS AGO. NO FH KIDNEY PROB LEMS. PHYSICAL EXAM Vital Signs: BP 154/74 mmHg | Pulse 83 | Temp(Src) 97.9 F (36.6 C) (Oral) | Resp 16 | Ht 1.702 m (5' 7") | Wt 78.472 kg (173 lb) | BMI 27.09 kg/m2 | SpO2 100% Physical Exam Constitutional: He is oriented to person, place, and time. He appears well-developed. HENT: Head: Normocephalic and atraumatic. Eyes: EOM are normal. Pupils are equal, round, and reactive to light. Neck: Neck supple. No JVD present. Cardiovascular: Normal rate, regular rhythm and normal heart sounds. Exam reveals no hart p and no friction rub. No murmur heard. Pulmonary/Chest: Effort normal. No respiratory distress. He has no wheezes. He has no rales . He exhibits no tenderness. Abdomina/Gl: Soft. He exhibits no distension and no mass. There is no tenderness. There is no rebound and no guarding. No hernia. Musculoskeletal: He exhibits no edema. Neurological: He is alert and oriented to person, place, and time. DATA Results Procedure Component Value Units Date/Time Drugs of Abuse Screen, UR (Hospital And ED Only) [[id number]] (Abnormal) Collected: 040 Specimen Information: Urine from Urine, Clean Catch Updated: 10/08/16 045 AMPHETAMINE/METHAMPHETAMINE NEGATIVE BARBITUATES NEGATIVE BENZODIAZEPINE NEGATIVE COCAINE NEGATIVE METHADONE NEGATIVE OPIATES POSITIVE (A) PCP NEGATIVE THC NEGATIVE Potassium [[id number]] (Abnormal) Collected: 10/08/16238 Specimen Information: Blood Updated: 10/08/16 033 POTASSIUM 6.2 (H) mmol/L Protime-INR [[id number]] Collected: 10/08/16238 INR 1.0 Updated: 10/08/16305 aPTT [[id number]] Collected: 10/08/16238 APTT 29 seconds Updated: 10/08/16305 Brain natriuretic peptide [[id number]] (Abnormal) Collected: 10/08/16238 BRAIN NATRIURETIC PEPTIDE 359 (H) pg/mL Updated: 10/08/16305 Cardiac Panel [[id number]] (Abnormal) Collected: 10/08/16215 WBC K/uL Updated: 10/08/16247 Result: SPECIMEN CLOTTED, SAMPLE TO BE REDRAWN RBC M/uL Result: SPECIMEN CLOTTED, SAMPLE TO BE REDRAWN HGB g/dL Result: SPECIMEN CLOTTED, SAMPLE TO BE REDRAWN HCT % Result: SPECIMEN CLOTTED, SAMPLE TO BE REDRAWN MCV fl Result: SPECIMEN CLOTTED, SAMPLE TO BE REDRAWN MCH pg Result: SPECIMEN CLOTTED, SAMPLE TO BE REDRAWN MCHC g/dL Result: SPECIMEN CLOTTED, SAMPLE TO BE REDRAWN RDW SD fl Result: SPECIMEN CLOTTED, SAMPLE TO BE REDRAWN PLT K/uL Result: SPECIMEN CLOTTED, SAMPLE TO BE REDRAWN MPV fl Result: SPECIMEN CLOTTED, SAMPLE TO BE REDRAWN DIFF TYPE SPECIMEN CLOTTED, SAMPLE TO BE REDRAWN CONDITION SPECIMEN CLOTTED, SAMPLE TO BE REDRAWN SODIUM 131 (L) mmol/L POTASSIUM 6.2 (H) mmol/L CHLORIDE 93 (L) mmol/L CO2 27 mmol/L ANION GAP AGAP 18 mmol/L GLUCOSE 88 mg/dL BUN 61 (H) mg/dL CREATININE 8.5 (H) mg/dL BUN/CREAT 7 CALCIUM 8.6 mg/dL TOTAL PROTEIN 7.8 g/dL Albumin 3.2 (L) g/dL GLOBULIN 4.5 g/dL A/G 0.7 (L) TBIL 0.5 mg/dL ALK PHOS 126 (H) U/L AST 32 U/L ALT 25 U/L EGFR 7 (L) mL/min/1.73m2 CPK 209 U/L PROTIME seconds Result: SPECIMEN CLOTTED, SAMPLE TO BE REDRAWN INR SPECIMEN CLOTTED, SAMPLE TO BE REDRAWN APTT seconds Result: SPECIMEN CLOTTED, SAMPLE TO BE REDRAWN MMB 4.3 (H) ng/mL CK-MB Index 2.1 Troponin I [[id number]] Collected: 10/08/16215 Specimen Information: Blood Updated: 10/08/16247 TROPONIN I <0.020 ng/mL CBC W/Auto Diff (Reflex to Manual) [[id number]] (Abnormal) Collected: 10/08/16238 WBC 9.28 K/uL Updated: 04/17/17 0248 RBC 3.02 (L) M/uL HGB 8.8 (L) g/dL HCT 26.7 (L) % MCV 88.2 fl MCH 29.0 pg MCHC 32.9 g/dL RDW SD 51.6 fl PLT 306 K/uL MPV 6.3 fl DIFF TYPE AUTOMATED NEUTROPHILS 74.31 % LYMPHOCYTES 8.74 % MONOCYTES 9.58 % EOSINOPHILS 6.60 % BASOPHILS 0.77 % NEUTROPHILS ABS 6.90 K/uL LYMPHOCYTES ABS 0.81 (L) K/uL MONOCYTES ABS 0.89 (H) K/uL EOSINOPHILS ABS 0.61 (H) K/uL BASOPHILS ABS 0.07 K/uL PROBLEM LIST Principal Problem: Hyperkalemia Active Problems: Hypothyroidism Diabetes mellitus with ESRD (end-stage renal disease) ([facility]) ESRD (end stage renal disease) on dialysis ([facility]) Chest pain, unspecified ASSESSMENT & PLAN Impression patient is 51 y.o. male with significant past medical history of hypertension, hyperlipidem ia, end-stage renal disease on hemodialysis, diabetes mellitus, hypothyroidism, asthma, hist ory of MSSA bacteremia who presents with hyperkalemia, chest pain. Transfer from [facility]. patient received prior to transfer to [facility] projection with 30 g, calcium gluco nicanor, insulin plus glucose, albuterol 08/2016 echocardiogram-overall left ventricular systolic function is normal with EF 55-60%. No pericardial effusion Troponin I- < 0.020 K-7.2 (at [facility]). K-6.2 here at [facility] EKG-normal sinus rhythm. no acute ST changes and no P waves. Normal QRS duration. Mild p rolonged QT corrected at 484 Chest x-ray-no obvious consolidation Assessment -Chest pain. With atypical characteristics. Will rule out cardiac etiologies including ac mcgrath coronary syndrome. Due to recent admission due to pericardial perforation will rule out pericardial effusion -Hyperkalemia. History is consistent with diet indiscretion. EKG with no signs of potassi um toxicity -End-stage renal disease on hemodialysis. Saturday and Saturday. With history of mi ssing appointments -Asthma. With no current signs of exacerbation -History of tobacco abuse and marijuana use -Hypertension -Diabetes -Hypothyroidism Plan Admit to observation-suspect improvement in the next 48 hours ED provider very consulted nephrology, Dr. Soria Telemetry Cardiac enzymes 3 BMP every 4 hours. Will treat hyperkalemia if needed EKG A1c and lipid panel in the morning Even though patient had a recent echocardiogram, due to history of pericardial perforation requiring a pericardial drain placement, will repeat echocardiogram due to current chest dis comfort Aspirin, beta hugo, statin therapy Nitroglycerin sublingual and morphine when necessary for pain Duo nebs when necessary for dyspnea NovoLog sliding scale DVT GI prophylaxis-SCD only due to bleeding risk (history of present pericardial effusion, perforation) CODE STATUS-full code Disposition: Observation Code Status: Prior Primary Care Physician: ANDRY Wilson MD 10/08/2016 documented i n this encounter Procedure Notes Neo Krishnan ARNP - 10/09/2016 11:52 AM PDTFormatting of this note might be different fr om the original. Procedures by DARRELL Rose at 10/09/16 1152 Author: DARRELL Rose Service: (none) Author Type: Advanced Registered Nurse Prac titioner Filed: 10/09/16 1153 Date of Service: 10/09/16 1152 Status: Signed 911 Telecommunicator: DARRELL Rose (Advanced Registered Nurse Practitioner) Pre-procedure Diagnoses: 1. Other chest pain [R07.89] Post-procedure Diagnoses: 1. Other chest pain [R07.89] Procedures: 1. NM MYOCARDIAL PERFUSION SPECT - STRESS AND REST [USV797 (Custom)] [facility] Service: Diagnostic Imaging/Nuclear Medicine Preliminary Cardiac Stress Test Note Type of Stress Test performed (protocol): Pharmacologic Stress Test Addi protocol time (if applicable): NA Rhythm changes: None Ectopy: None Symptoms experienced during exam: None ST/T wave changes: None Medications administered: Lexiscan 0.4mg Winter Treadmill Score: NA DARRELL Rose 10/09/2016 11:52 AM documented in this encounter Consult Notes Cosmo Soria MD - 10/08/2016 11:57 AM PDT Consult* by Cosmo Soria MD at 10/08/16 8217 Author: Cosmo Soria MD Service: Nephrology Author Type: Physician Filed: 10/08/16 8744 Date of Service: 10/08/161156 Status: Signed 911 Telecommunicator: Cosmo Soria MD (Physician) [id number] History Obtained From: patient, chart review Carol Potter is a 51 y.o. man whose PCP is Dr. ANDRY DENG. He is known to have ESRD as per PMH> He was recently discharged from [facility] (admitted 09/07/16-09/15/16)where he had a complicated st ay including development of pericardial effusion s/p attempt at angioplasty for central veno us stenosis (done for poorly functioning right UE AVF). He had a pericardial drain put in which was removed prior to discharged. He had uncomplicated HD Saturday and apparently had been drinking a lot of apple/moy juice . Saturday around 6 pm he began to have severe, acute onset of left sided chest pain without ra diation but with shortness of breath. He presented to ED at [facility] where he was found to have severe hyperkalemia (no EKG changes). He was treated medically and was transferred to [facility] for urgent dialysis. The pain resolved after treatment. At [facility] he was hypertensive without tachycardia/fever/hypoxia. Lab work up showed normal cardiac enzymes and hyperkalemia with K of 6.2. He was admitted and set up for dialysis first thing in the morning and is seen on HD. He feels OK now and denied any fever, chills, nausea, vomiting, diarrhea, shortness of briseida th, chest pain, cough. PMH, PSH, Social history, medications, allergies, labs and imaging reviewed as appropriate. Previous history summarized as above. Prior lab data and imaging reviewed. Old records and labs were reviewed and summarized as above. Significant medical/surgical history: ESRD secondary to Biopsy-proven Diabetic nephropathy. He is dialyzed Saturday an d Saturday at [place] dialysis unit using right UE AVF (Dr. [...] described. 09/26/2016 Hemopericardium treated with pericardial drain. Family/social history: There is no family history [...] clotted Right UE brachiocephalic AVF with bruit Vital Signs: BP 144/75 mmHg | Pulse 92 | Temp(Src) 98 F (36.7 C) (Oral) | Resp 16 | Ht 1.702 m (5' 7 ") | Wt 82.7 kg (182 lb 5.1 oz) | BMI 28.55 kg/m2 | SpO2 99% Data evaluation: Lab Results Component Value Date BUN 66* 10/08/2016 CREATININE 8.4* 10/08/2016 EGFR 7* 10/08/2016 NA 129* 10/08/2016 K 5.9* 10/08/2016 CL 92* 10/08/2016 CO2 26 10/08/2016 CA 8.3* 10/08/2016 PHOS 3.0 09/15/2016 MG 2.7* 09/15/2016 ALB 3.2* 10/08/2016 HGB 8.8* 10/08/2016 Lab Results Component Value Date K 5.9* 10/08/2016 K 6.2* 10/08/2016 K 6.2* 10/08/2016 Assessment and Recommendations: ESRD on HD Hyperkalemia Anemia of chronic renal failure Hyperkalemia is likely from dietary indiscretion. Access is working OK. BP is Ok. He is Clinically euvolemic. Anemia is moderate. Plan to dialyze him today using 2 K bath. Plan for assessment tomorrow. If K is OK then he may be discharged to resume outpatient HD. [place] evaluation for low K diet. I discussed [...] Plan of care was discussed with Dr. Walker and Dr. Noyola who has taken over care. I thank Dr Walker for giving me the opportunity to take part in his care with multiple comple x medical problems. Do not hesitate to contact me if you have any questions. COSMO SORIA MD 10/08/2016 Portions of my previous notes have been carried over for continuity of care. He was seen earlier in the day and charting was completed later after rounds. Dictation software, [employer], was used which may contain error for similar sounding words. Pe rsonal communication is requested for any clarification. Prognosis guarded in view of multiple comorbid illnesses and ESRD amLODIPine 10 mg Oral Daily aspirin 325 mg Oral Daily with breakfast atorvastatin 40 mg Oral Nightly budesonide-formoterol 2 puff Inhalation 2 times daily carvedilol 3.125 mg Oral BID WC epoetin alena 10,000 Units Intravenous Once per day on Sat famotidine 20 mg Oral Daily Or famotidine 20 mg Intravenous Daily insulin lispro (human) 0-3 Units Subcutaneous Nightly insulin lispro (human) 0-6 Units Subcutaneous TID AC levothyroxine 75 mcg Oral QAM AC sevelamer 1,600 mg Oral TID WC sodium chloride (PF) 10 mL Intravenous Q8H documented in this en counter ED Notes Conversion Transaction, Provider Unknown - 10/08/2016 2:07 AM PDTFormatting of this note m ight be different from the original. ED Notes by Lavinia Toro RN at 10/08/16206 Author: Lavinia Toro RN Service: (none) Author Type: Registered Nurse Filed: 10/08/16206 Date of Service: 10/08/16206 Status: Signed 911 Telecommunicator: Lavinia Toro RN (Registered Nurse) Dianetic Counselor at bedside to draw blood. Lavinia Toro RN 10/08/16206 Peterson Cary MD - 10/08/2016 1:43 AM PDT ED Provider Notes by Peterson Melvin MD at 10/08/16142 Author: Peterson Melvin MD Service: Emergency Department Author Type: Physician Filed: 10/08/16 0705 Date of Service: 10/08/16142 Status: Signed 911 Telecommunicator: ePterson Melvin MD (Physician) [facility] Department of Emergency Medicine 1:43 AM 10/07/2016 History of Present Illness Patient Identification Carol Potter is a 51 y.o. male. Patient information was obtained from EMS personnel and nursing staff. History/Exam limitations: mental status. Patient presented to the Emergency Department by: [facility] Chief Complaint Chief Complaint Patient presents with Chest Pain Abnormal Labs hyperkalemia The patient presents to the emergency department with chief complaints of chest pain. Onset of symptoms was today, with a constant course since that time. The symptoms are described t o be of moderate severity. The patient also complains of hyperkalemia, shortness of breath. The patient describes the quality and location of the symptoms as the following: sudden onse t chest pain after eating dinner around 1800. He is a dialysis patient. Last dialysis was [facility] [place], when he presented there he was found to be hypokalemic (7.2) without EKG changes. He w as treated with insulin, glucose, calcium, and K-escalate. He was transferred to a facility for emergent dialysis secondary to hyperkalemia. Vitals here are normal, he is hypertensive but there is no apparent respiratory distress. Patient is resting comfortably at this time. PCP: ANDRY DENG Past Medical History Diagnosis Date Hyperlipidemia Hypertension Thyroid disease Anemia Abdominal pain, right upper quadrant 04/13/2012 Dialysis patient ([facility]) GI bleed 04/30/2012 from coumadin Walker as ambulation aid Gout Asthma pt not using inhaler any more, no symptoms DVT (deep venous thrombosis) ([facility]) x3 AV fistula ([facility]) lt arm Knee pain, right 07/06/2012 MSSA (methicillin susceptible Staphylococcus aureus) infection 04/11/2012 Anemia due to blood loss 04/30/2012 Amphetamine and other psychostimulant dependence, continuous 04/02/2012 Hyperphosphatemia 05/24/2012 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 Rash and nonspecific skin eruption 04/03/2012 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 Neuromuscular disorder ([facility]) neuropathy Hyperkalemia 11/09/2013 Chronic obstructive asthma with exacerbation ([facility]) 10/27/2013 SOB (shortness of breath) 10/27/2013 Diabetes mellitus type I ([facility]) Hyponatremia 09/08/2016 Chronic systolic heart failure ([facility]) 09/10/2016 Past Surgical History Procedure Laterality Date Unlisted procedure arthroscopy shoulder rt , ligaments Superficialization of av fistula Right 03/30/2014 Procedure: AV FISTULA - SUPERFICIALIZATION; Surgeon: Oskar Meyer MD; Location: [facility] MAIN OR; Service: Vascular; Laterality: Right; Av fistula placement Right 02/09/2014 Procedure: AV FISTULA; Surgeon: Oskar Meyer MD; Location: [facility] MAIN OR; Service: Vascul ar; Laterality: Right; Av fistula repair Left 07/11/2012 Procedure: AV FISTULA - GRAFT REPAIR/REVISION; Surgeon: Oskar Meyer MD; Location: [facility] OR; Service: Vascular; Laterality: Left; Superficialization of brachiobasilic fistula and right IJ perm cath insertion Dialysis fistula creation Left 07/11/2012 Procedure: DIALYSIS CATHETER - INSERTION; Surgeon: Oskar Meyer MD; Location: [facility] MAIN O R; Service: Vascular; Laterality: Left; removed dialysis catheter from left neck and plac ed new on in left chest, attempted in right neck but unable to place Catheter removal Right 07/07/2012 Procedure: DIALYSIS CATHETER - REMOVAL; Surgeon: Oskar Meyer MD; Location: [facility] BEDSIDE PROCEDURE; Service: General; Laterality: Right; perm cath Dialysis fistula creation Left 07/07/2012 Procedure: DIALYSIS CATHETER - INSERTION; Surgeon: Oskar Meyer MD; Location: [facility] BEDSID E PROCEDURE; Service: General; Laterality: Left; temporary dialysis catheter Knee arthroscopy Right 07/07/2012 Procedure: KNEE - ARTHROSCOPY; Surgeon: Favio Raza MD; Location: [facility] MAIN OR; S ervice: Orthopedics; Laterality: Right; After 1530 Av fistula placement Left 05/06/2012 Procedure: AV FISTULA; Surgeon: Oskar Meyer MD; Location: [facility] MAIN OR; Service: Vascul ar; Laterality: Left; Left arm possible right Colonoscopy with egd N/A 05/01/2012 Procedure: COLONOSCOPY W/ EGD; Surgeon: John Singleton MD; Location: [facility] ENDOSCOPY; Se rvice: Gastroenterology; Laterality: N/A; Prior to Admission medications Medication Sig Start Date End Date Taking? Authorizing Provider amLODIPine (NORVASC) 10 MG tablet Take 10 mg by mouth daily. Yes Historical Provider carvedilol (COREG) 3.125 MG tablet Take 3.125 mg by mouth 2 (two) times daily with meals. Yes Historical Provider furosemide (LASIX) 20 MG tablet Take 20 mg by mouth daily. Yes Historical Provider HYDROcodone-acetaminophen (NORCO) 5-325 MG per tablet 10/03/16 Yes Historical Provider levothyroxine (SYNTHROID) 75 MCG tablet Take 75 mcg by mouth every morning before breakfast . Indications: Underactive Thyroid Yes CLARENCE Earl acetaminophen (TYLENOL) 325 MG tablet Take 650 [...] mouth daily. Indications: Primary Gout CLARENCE Earl aspirin 81 MG tablet Take 81 mg by mouth daily. Historical Provider b complex-vitamin c-folic acid (NEPHRO-THU) 0.8 MG TABS Take 1 tablet by mouth daily. Historical Provider budesonide-formoterol (SYMBICORT) 160-4.5 MCG/ACT inhaler Inhale 2 puffs into the lungs 2 ( two) times daily. 04/30/16 05/30/16 Khanh Rangel MD Cholecalciferol 2000 UNITS TABS Take 1 tablet by mouth daily. Historical Provider fluticasone-salmeterol (ADVAIR DISKUS) 250-50 MCG/DOSE Inhale 1 puff into the lungs 2 (two) times daily. 10/28/13 Karri Huff MD montelukast (SINGULAIR) 10 MG tablet Take 1 tablet by mouth nightly. 10/28/13 10/28/14 Karri Huff MD ondansetron (ZOFRAN-ODT) 8 MG disintegrating tablet 10/03/16 Historical Provider RENVELA 800 MG tablet take [...] KIDS. CURRENTLY UNEMPLOYED, BEFOR E WORKED AT [employer] [place] [employer]. Quit METHAMPHETAMINES PER PATIENT after t he ARF in mar 2012. FATHER HAS COLON CANCER, HEART DISEASE, MOTHER 15 YEARS AGO. NO FH KIDNEY PROB LEMS. Family History Problem Relation Age of Onset Heart disease Mother Heart disease Father Diabetes Father Cancer Father colon cancer ROS Review of Systems Unable to obtain ROS secondary to patient's mental status. Physical Exam BP 150/103 mmHg | Pulse 82 | Temp(Src) 98 F (36.7 C) (Oral) | Resp 18 | Ht 1.702 m (5' 7") | Wt 78.472 kg (173 lb) | BMI 27.09 kg/m2 | SpO2 99% Vitals Interpretation: Hypertensive, otherwise within normal limits Pulse Oximetry interpretation: Normal General: Alert, in no apparent distress, very lethargic but arousable Eyes: Normal inspection, pupils equal and round, non-icteric CVS: Rate and rhythm normal No murmurs, rubs or gallops Respiratory: Breath sounds normal bilaterally, no wheezing or crackles Abdomen: Soft, non-tender, non-distended No guarding or rebound Skin: Warm and dry No rash Musculoskeletal: Moves all extremities No pitting edema in the BLE Neuro: No gross motosensory deficit ED Course Medical Decision Making and Emergency Department Course ED Department Course 1:43 AM. Patient presents with chest pain. On exam patient is very lethargic but is arousab le. My differential diagnosis includes but is not limited to: hyperkalemia, hepatic encephal opathy, UTI, electrolyte abnormality, vs. other. Will order labs, treat symptomatically, and reevaluate the patient. The patient was hypertensive on presentation. Differential for hypertension in the emergen cy department is extensive and not limited to pain, anxiety, established and uncontrolled hy pertension, poor medication compliance vs other. Patient will follow up with primary care isaak flower for ongoing concerns. 2:52 AM Labs resulted and reviewed. Moderate hemolysis. Will re-send lab work. Troponin is negative (<0.02). 3:08 AM BNP is elevated (359). XR imaging reviewed. No acute findings or fluid overload not ed. 3:41 AM Repeat potassium is 6.2. Will plan for admission to the hospital. 3:47 AM Patient reevaluated. Patient still appears drowsy. Will consult with nephrology. 3:49 AM Consulted case with Dr. Soria, nephrology, who recommends admission to the [facility] and patient will be dialyzed in the morning. Will admit pt at this time and place a call o ut to the hospitalist. Will give naloxone and order an ABG. 4:06 PM Informed by RN that patient is beginning to wake up after narcam administration. 4:07 AM Patient reevaluated. Patient is awake after narcam administration and is talkative. 4:47 AM Discussed case with Dr. Siddiqi, hospitalist, who accepts the patient for admission at this time. 4:52 AM Drug screen is positive for opiates. Filed Vitals: 10/08/16 0136 10/08/16 0249 10/08/16 0357 10/08/16 0513 BP: 150/103 183/81 168/79 154/74 Pulse: 82 79 82 83 Temp: 98 F (36.7 C) 97.9 F (36.6 C) TempSrc: Oral Oral Resp: 18 18 14 16 Height: 1.702 m (5' 7") Weight: 78.472 kg (173 lb) SpO2: 99% 100% 100% 100% Medications naloxone (NARCAN) injection 0.4 mg (0.4 mg Intravenous Given 10/08/16401) Records Reviewed Old medical records. Nursing notes. Patient was seen on 10/01/16 in the ED for same complaint. Labs & Radiology Results Laboratory Evaluation Results Procedure Component Value Ref Range Date/Time Drugs of Abuse Screen, UR (Hospital And ED Only) [[id number]] (Abnormal) Collected: 405 Order Status: Completed Specimen Information: Urine from Urine, Clean Catch Updated: 10/08/16 045 AMPHETAMINE/METHAMPHETAMINE NEGATIVE NEGATIVE BARBITUATES NEGATIVE NEGATIVE BENZODIAZEPINE NEGATIVE NEGATIVE COCAINE NEGATIVE NEGATIVE METHADONE NEGATIVE NEGATIVE OPIATES POSITIVE (A) NEGATIVE PCP NEGATIVE NEGATIVE THC NEGATIVE NEGATIVE POC Arterial Blood Gas [[id number]] Collected: 10/08/16407 Order Status: Completed Updated: 10/08/16414 POC FIO2 21 % pH, Art 7.446 7.350 - 7.450 POC PCO2 36 35 - 45 mmHg POC p02 95 80 - 105 mmHg POC HCO3 25 22 - 26 mmol/L POC TCO2 26 23 - 27 mEq/L POC BASE EXCESS 1 0 - 3 mEq/L POC S02 98 95 - 98 % Potassium [[id number]] (Abnormal) Collected: 10/08/16238 Order Status: Completed Specimen Information: Blood Updated: 10/08/16331 POTASSIUM 6.2 (H) 3.5 - 4.9 mmol/L Protime-INR [[id number]] Collected: 10/08/16238 Order Status: Completed Updated: 10/08/16305 INR 1.0 aPTT [[id number]] Collected: 10/08/16238 Order Status: Completed Updated: 10/08/16305 APTT 29 23 - 32 seconds Brain natriuretic peptide [[id number]] (Abnormal) Collected: 10/08/16238 Order Status: Completed Updated: 10/08/16305 BRAIN NATRIURETIC PEPTIDE 359 (H) 0 - 100 pg/mL Cardiac Panel [[id number]] (Abnormal) Collected: 10/08/16215 Order Status: Completed Updated: 10/08/16247 WBC 3.80 - 11.00 K/uL Result: SPECIMEN CLOTTED, SAMPLE TO BE REDRAWN RBC 4.20 - 5.70 M/uL Result: SPECIMEN CLOTTED, SAMPLE TO BE REDRAWN HGB 13.2 - 17.0 g/dL Result: SPECIMEN CLOTTED, SAMPLE TO BE REDRAWN HCT 39.0 - 50.0 % Result: SPECIMEN CLOTTED, SAMPLE TO BE REDRAWN MCV 80.0 - 100.0 fl Result: SPECIMEN CLOTTED, SAMPLE TO BE REDRAWN MCH 27.0 - 34.0 pg Result: SPECIMEN CLOTTED, SAMPLE TO BE REDRAWN MCHC 32.0 - 35.5 g/dL Result: SPECIMEN CLOTTED, SAMPLE TO BE REDRAWN RDW SD 37 - 53 fl Result: SPECIMEN CLOTTED, SAMPLE TO BE REDRAWN PLT 150 - 400 K/uL Result: SPECIMEN CLOTTED, SAMPLE TO BE REDRAWN MPV fl Result: SPECIMEN CLOTTED, SAMPLE TO BE REDRAWN DIFF TYPE SPECIMEN CLOTTED, SAMPLE TO BE REDRAWN CONDITION SPECIMEN CLOTTED, SAMPLE TO BE REDRAWN SODIUM 131 (L) 135 - 145 mmol/L POTASSIUM 6.2 (H) 3.5 - 4.9 mmol/L CHLORIDE 93 (L) 99 - 109 mmol/L CO2 27 23 - 32 mmol/L ANION GAP AGAP 18 5 - 20 mmol/L GLUCOSE 88 65 - 99 mg/dL BUN 61 (H) 8 - 25 mg/dL CREATININE 8.5 (H) 0.70 - 1.30 mg/dL BUN/CREAT 7 CALCIUM 8.6 8.5 - 10.5 mg/dL TOTAL PROTEIN 7.8 6.3 - 8.2 g/dL Albumin 3.2 (L) 3.6 - 5.0 g/dL GLOBULIN 4.5 1.3 - 4.9 g/dL A/G 0.7 (L) 1.0 - 2.4 TBIL 0.5 0.1 - 1.5 mg/dL ALK PHOS 126 (H) 35 - 115 U/L AST 32 10 - 45 U/L ALT 25 10 - 65 U/L EGFR 7 (L) >60 mL/min/1.73m2 CPK 209 55 - 400 U/L PROTIME seconds Result: SPECIMEN CLOTTED, SAMPLE TO BE REDRAWN INR SPECIMEN CLOTTED, SAMPLE TO BE REDRAWN APTT 23 - 32 seconds Result: SPECIMEN CLOTTED, SAMPLE TO BE REDRAWN MMB 4.3 (H) 0.5 - 3.6 ng/mL CK-MB Index 2.1 Troponin I [[id number]] Collected: 10/08/16215 Order Status: Completed Specimen Information: Blood Updated: 10/08/16247 TROPONIN I <0.020 0.00 - 0.10 ng/mL CBC W/Auto Diff (Reflex to Manual) [[id number]] (Abnormal) Collected: 10/08/16238 Order Status: Completed Updated: 10/08/16247 WBC 9.28 3.80 - 11.00 K/uL RBC 3.02 (L) 4.20 - 5.70 M/uL HGB 8.8 (L) 13.2 - 17.0 g/dL HCT 26.7 (L) 39.0 - 50.0 % MCV 88.2 80.0 - 100.0 fl MCH 29.0 27.0 - 34.0 pg MCHC 32.9 32.0 - 35.5 g/dL RDW SD 51.6 37 - 53 fl PLT 306 150 - 400 K/uL MPV 6.3 fl DIFF TYPE AUTOMATED NEUTROPHILS 74.31 % LYMPHOCYTES 8.74 % MONOCYTES 9.58 % EOSINOPHILS 6.60 % BASOPHILS 0.77 % NEUTROPHILS ABS 6.90 1.90 - 7.40 K/uL LYMPHOCYTES ABS 0.81 (L) 1.00 - 3.90 K/uL MONOCYTES ABS 0.89 (H) 0.00 - 0.80 K/uL EOSINOPHILS ABS 0.61 (H) 0.00 - 0.50 K/uL BASOPHILS ABS 0.07 0.00 - 0.10 K/uL Radiology and EKG Evaluation EKG @ 0154 Normal sinus rhythm, rate of [address]-T wave changes Normal QRS, intervals, and QTc EKG viewed independently and interpreted by me contemporaneously: Peterson Melvin MD Imaging Results None Diagnosis & Disposition ED Diagnoses Final diagnoses Hyperkalemia ESRD (end stage renal disease) ([facility]) Disposition: ED Disposition Admit/Observation Bed request special needs: None Diagnosis?: hyperkalemia, ESRD Procedures Additional Documentation Procedures Attending Note: Documentation assistance provided by King Urbina (Scribe). Information recorded by the scribe has been reviewed and validated by me. I ag ree with its contents. Signed by: Cande Hamlin 10/08/2016, 5:28 AM MD Peterson Knott MD 10/08/16704 onversion Transact ion, Provider Unknown - 10/08/2016 1:35 AM PDTFormatting of this note might be different fr om the original. ED Notes by Trish Bansal RN at 10/08/16134 Author: Trish Bansal RN Service: (none) Author Type: Registered Nurse Filed: 10/08/16134 Date of Service: 10/08/16134 Status: Signed 911 Telecommunicator: Trish Bansal RN (Registered Nurse) Bed: 06 Expected date: Expected time: Means of arrival: Comments: [facility] onver quique Transaction, Provider Unknown - 10/08/2016 12:34 AM PDT ED Notes by Trish Bansal RN at 10/08/1633 Author: Trish Bansal RN Service: (none) Author Type: Registered Nurse Filed: 10/08/1645 Date of Service: 10/08/1633 Status: Signed 911 Telecommunicator: Trish Bansal RN (Registered Nurse) [facility] calling with report on this nurse. C/c of CP today, seen on the in [facility] for same c/c. Per report stated "my kidney is swollen and inflamed putting pressure on my heart." Pt is dialysis pt, had dialysis last Saturday. Labs: K 7.2, creatinine 7.73, tr oponin 0.37. Reports he has been drinking a lot of moy juice since his last dialysis. All ergies to lisinopril, PCN, azithromycin. Given ASA 324 mg on arrival, 1 x amp D50, 9.3 mEq c alcium gluconate, 30 grams kayexalate, insulin 10 units, abluterol. Last set vitals BP 135/6 5, HR 88, O2Sat 100% RA. Trish Bansal RN 10/08/1645 docume nted in this encounter Miscellaneous Notes Plan of Care - Amrik Noyola MD - 10/08/2016 10:57 AM PDT Plan of Care by Amrik Noyola MD at 10/08/16 105 Author: Amrik Noyola MD Service: Hospitalist Author Type: Physician Filed: 10/08/16 1059 Date of Service: 10/08/161056 Status: Signed 911 Telecommunicator: Amrik Noyola MD (Physician) Patient seen He was on dialysis and is tolerating that well. Took a lot of apple-moy juice po States he is no longer having chest pain Plan: I reviewed his EKG - non specific st t changes. Given that he states he has been on HD for 7 years, and history of HTn, HLd, DM he is at high risk and pretest prob for CAD and would n eed further non invasive risk stratification with a treadmill nuclear study. His echo has been done and is pending Advised low potassium diet - wIll have neighborhood coordinator review this with him documented in this en counter Plan of Treatment Not on filedocumented as of this encounter Procedures + +--------+ + + + | Procedure Name | Priori | Date/Time | Associated Diagnosis | Comments | | | ty | | | | + +--------+ + + + | POC GLUCOSE | Routin | 10/09/2016 | | Results for this | | | e | 4:00 PM | | procedure are in the | | | | PDT | | results section. | + +--------+ + + + | POC GLUCOSE | Routin | 10/09/2016 | | Results for this | | | e | 12:52 PM | | procedure are in the | | | | PDT | | results section. | + +--------+ + + + | NM MYOCARDIAL | Routin | 10/09/2016 | | Results for this | | PERFUSION MULT SPECT | e | 12:26 PM | | procedure are in the | | | | PDT | | results section. | + +--------+ + + + | POC GLUCOSE | Routin | 10/09/2016 | | Results for this | | | e | 5:34 AM | | procedure are in the | | | | PDT | | results section. | + +--------+ + + + | EXTERNAL LAB: CBC | Routin | 10/09/2016 | | Results for this | | | e | 4:20 AM | | procedure are in the | | | | PDT | | results section. | + +--------+ + + + | LIPID PANEL | Routin | 10/09/2016 | | Results for this | | | e | 4:20 AM | | procedure are in the | | | | PDT | | results section. | + +--------+ + + + | PHOSPHORUS | Routin | 10/09/2016 | | Results for this | | | e | 4:20 AM | | procedure are in the | | | | PDT | | results section. | + +--------+ + + + | MAGNESIUM | Routin | 10/09/2016 | | Results for this | | | e | 4:20 AM | | procedure are in the | | | | PDT | | results section. | + +--------+ + + + | HEMOGLOBIN A1C | Routin | 10/09/2016 | | Results for this | | | e | 4:20 AM | | procedure are in the | | | | PDT | | results section. | + +--------+ + + + | BILIRUBIN, DIRECT | Routin | 10/09/2016 | | Results for this | | | e | 4:20 AM | | procedure are in the | | | | PDT | | results section. | + +--------+ + + + | COMPREHENSIVE | Routin | 10/09/2016 | | Results for this | | METABOLIC PANEL | e | 4:20 AM | | procedure are in the | | | | PDT | | results section. | + +--------+ + + + | POC GLUCOSE | Routin | 10/08/2016 | | Results for this | | | e | 9:25 PM | | procedure are in the | | | | PDT | | results section. | + +--------+ + + + | BASIC METABOLIC | Routin | 10/08/2016 | | Results for this | | PANEL | e | 7:36 PM | | procedure are in the | | | | PDT | | results section. | + +--------+ + + + | POC GLUCOSE | Routin | 10/08/2016 | | Results for this | | | e | 4:17 PM | | procedure are in the | | | | PDT | | results section. | + +--------+ + + + | BASIC METABOLIC | Routin | 10/08/2016 | | Results for this | | PANEL | e | 3:59 PM | | procedure are in the | | | | PDT | | results section. | + +--------+ + + + | ECHO COMPLETE | Routin | 10/08/2016 | | Results for this | | | e | 3:29 PM | | procedure are in the | | | | PDT | | results section. | + +--------+ + + + | POC GLUCOSE | Routin | 10/08/2016 | | Results for this | | | e | 11:05 AM | | procedure are in the | | | | PDT | | results section. | + +--------+ + + + | TROPONIN I | Routin | 10/08/2016 | | Results for this | | | e | 10:01 AM | | procedure are in the | | | | PDT | | results section. | + +--------+ + + + | CK-MB | Routin | 10/08/2016 | | Results for this | | | e | 10:01 AM | | procedure are in the | | | | PDT | | results section. | + +--------+ + + + | CK TOTAL | Routin | 10/08/2016 | | Results for this | | | e | 10:01 AM | | procedure are in the | | | | PDT | | results section. | + +--------+ + + + | ECG 12 LEAD | Routin | 10/08/2016 | | Results for this | | | e | 8:29 AM | | procedure are in the | | | | PDT | | results section. | + +--------+ + + + | BASIC METABOLIC | Routin | 10/08/2016 | | Results for this | | PANEL | e | 7:36 AM | | procedure are in the | | | | PDT | | results section. | + +--------+ + + + | POC GLUCOSE | Routin | 10/08/2016 | | Results for this | | | e | 6:22 AM | | procedure are in the | | | | PDT | | results section. | + +--------+ + + + | TROPONIN I | Routin | 10/08/2016 | | Results for this | | | e | 6:22 AM | | procedure are in the | | | | PDT | | results section. | + +--------+ + + + | CK-MB | Routin | 10/08/2016 | | Results for this | | | e | 6:22 AM | | procedure are in the | | | | PDT | | results section. | + +--------+ + + + | CK TOTAL | Routin | 10/08/2016 | | Results for this | | | e | 6:22 AM | | procedure are in the | | | | PDT | | results section. | + +--------+ + + + | DRUGS OF ABUSE | Routin | 10/08/2016 | | Results for this | | SCREEN, URINE (H) | e | 4:06 AM | | procedure are in the | | | | PDT | | results section. | + +--------+ + + + | EXTERNAL LAB: CBC | Routin | 10/08/2016 | | Results for this | | | e | 2:39 AM | | procedure are in the | | | | PDT | | results section. | + +--------+ + + + | PTT | Routin | 10/08/2016 | | Results for this | | | e | 2:39 AM | | procedure are in the | | | | PDT | | results section. | + +--------+ + + + | PROTIME INR | Routin | 10/08/2016 | | Results for this | | | e | 2:39 AM | | procedure are in the | | | | PDT | | results section. | + +--------+ + + + | POTASSIUM | Routin | 10/08/2016 | | Results for this | | | e | 2:39 AM | | procedure are in the | | | | PDT | | results section. | + +--------+ + + + | B TYPE NATRIURETIC | Routin | 10/08/2016 | | Results for this | | PEPTIDE | e | 2:39 AM | | procedure are in the | | | | PDT | | results section. | + +--------+ + + + | HISTORICAL LAB PANEL | Routin | 10/08/2016 | | Results for this | | RESULT | e | 2:16 AM | | procedure are in the | | | | PDT | | results section. | + +--------+ + + + | TROPONIN I | Routin | 10/08/2016 | | Results for this | | | e | 2:16 AM | | procedure are in the | | | | PDT | | results section. | + +--------+ + + + | ECG 12 LEAD | Routin | 10/08/2016 | | Results for this | | | e | 1:54 AM | | procedure are in the | | | | PDT | | results section. | + +--------+ + + + | XR CHEST 1 VIEW | Routin | 10/07/2016 | | Results for this | | | e | 12:22 AM | | procedure are in the | | | | PDT | | results section. | + +--------+ + + + documented in this encounter Results POC Glucose (10/09/2016 4:00 PM PDT) + + + + + + | Component | Value | Ref Range | Performed | Pathologist | | | | | At | Signature | + + + + + + | Glucose, | 189 (H)Comment: Testing | 65 - 99 mg/dL | EXTERNAL | | | Fingerstick | performed at [facility];[address] | | LAB | | | | [address];[place] | | | | | | [id number] | | | | + + + + + + + + | Specimen | + + | | + + + +---------+ + + | Performing | Address | City/State/Zipcode | Phone Number | | Organization | | | | + +---------+ + + | EXTERNAL LAB | | | | + +---------+ + + POC Glucose (10/09/2016 12:52 PM PDT) + + + + + + | Component | Value | Ref Range | Performed | Pathologist | | | | | At | Signature | + + + + + + | Glucose, | 109 (H)Comment: Testing | 65 - 99 mg/dL | EXTERNAL | | | Fingerstick | performed at [facility];[address] | | LAB | | | | [address];[place], [place] | | | | | | [id number] | | | | + + + + + + + + | Specimen | + + | | + + + +---------+ + + | Performing | Address | City/State/Zipcode | Phone Number | | Organization | | | | + +---------+ + + | EXTERNAL LAB | | | | + +---------+ + + NM Myocardial Perfusion Mult SPECT (10/09/2016 12:26 PM PDT) + + | Specimen | + + | | + + + + + | Impressions | Performed At | + + + | 1. I see no evidence of ischemia. 2. Probable artifactual | | | attenuation of the inferior wall and proximal anterior wall. 3. No | | | definite infarct. 4. LVEF 52% stress, 43% rest. I believe the rest | | | EF is artifactually low, given there is normal LV wall motion. | | | Using the risk stratification system at our institution, this | | | examination equates to at least a low risk based on this imaging, | | | arising from the criteria below (1). Note that this should be | | | interfaced with clinical and other data, potentially affecting final | | | categorization. 1. [employer] and [place] | | | College of Cardiology Scientific Statement. Circulation (2008); 118: p | | | [phone] | | | 12:55 PM | | + + + + + + | Narrative | Performed At | + + + | HISTORY: Chest pain. TECHNIQUE: The patient was intravenously | | | injected with 10.5 millicuries technetium 99m sestamibi. Rest gated | | | supine SPECT images were obtained. The patient was then | | | intravenously injected with 0.4 mg Regadenason per protocol. The | | | patient was finally intravenously injected with 41.3 mCi technetium | | | 99m sestamibi, and stress gated supine SPECT, and prone SPECT | | | scintigraphic images were obtained. COMPARISON: Echocardiogram | | | previous day. Chest x-ray 10/07/16. FINDINGS: Rest images show | | | thinning of the proximal anterior and proximal to mid inferior go, | | | likely related to patient body habitus. Stress supine images show | | | thinning only of the inferior wall. This is improved on stress prone | | | images, nearly resolved, favoring diaphragmatic artifact. I do not | | | see evidence of ischemia. No left ventricular dilatation with stress. | | | LVEF 52% stress, 43% rest. Wall motion is unremarkable. Rest EDV | | | 123 mL. Rest ESV 70 mL. Stress EDV 129 mL. Stress ESV 62 mL. | | | Transient ischemic dilatation ratio 1.03, normal. | | + + + + + | Procedure Note | + + | Khalif Palm - 02/04/2019 10:13 PM PDT HISTORY:Chest pain. TECHNIQUE:The | | patient was intravenously injected with 10.5 millicuries technetium 99m sestamibi. Rest | | gated supine SPECT images were obtained. The patient was then intravenously injected | | with 0.4 mg Regadenason per protocol. The patient was finally intravenously injected | | with 41.3 mCi technetium 99m sestamibi, and stress gated supine SPECT, and prone SPECT | | scintigraphic images were obtained. COMPARISON:Echocardiogram previous day. Chest x-ray | | 10/07/16. FINDINGS:Rest images show thinning of the proximal anterior and proximal to | | mid inferior go, likely related to patient body habitus. Stress supine images show | | thinning only of the inferior wall. This is improved on stress prone images, nearly | | resolved, favoring diaphragmatic artifact. I do not see evidence of ischemia. No left | | ventricular dilatation with stress. LVEF 52% stress, 43% rest. Wall motion is | | unremarkable. Rest EDV 123 mL.Rest ESV 70 mL.Stress EDV 129 mL.Stress ESV 62 | | mL.Transient ischemic dilatation ratio 1.03, normal. IMPRESSION: 1. I see no evidence | | of ischemia.2. Probable artifactual attenuation of the inferior wall and proximal | | anterior wall.3. No definite infarct.4. LVEF 52% stress, 43% rest. I believe the rest | | EF is artifactually low, given there is normal LV wall motion. Using the risk | | stratification system at our institution, this examination equates to at least a low | | risk based on this imaging, arising from the criteria below (1). Note that this should | | be interfaced with clinical and other data, potentially affecting final categorization. | | 1. [employer] and [employer] Scientific Statement. | | Circulation (2008); 118: p [id number] Electronically signed by Wilton Lentz MD on | | 10/09/2016 12:55 PM | |2. Probable artifactual attenuation of the inferior wall and proximal anterior wall. | |3. No definite infarct. | |4. LVEF 52% stress, 43% rest. I believe the rest EF is artifactually low, given there is n ormal LV wall motion. | | | | | |Using the risk stratification system at our institution, this examination equates to at [address] st a low risk based on this imaging, arising from the criteria below (1). Note that this tin uld be interfaced with clinical and | |other data, potentially affecting | |final categorization. | | | |1. [employer] and [employer] Scientific Statement. Cir culation (2008); 118: p [id number] | | | | | + + POC Glucose (10/09/2016 5:34 AM PDT) + + + + + + | Component | Value | Ref Range | Performed | Pathologist | | | | | At | Signature | + + + + + + | Glucose, | 102 (H)Comment: Testing | 65 - 99 mg/dL | EXTERNAL | | | Fingerstick | performed at [facility];[address] | | LAB | | | | [address];[place], [place] | | | | | | [address] | | | | + + + + + + + + | Specimen | + + | | + + + +---------+ + + | Performing | Address | City/State/Zipcode | Phone Number | | Organization | | | | + +---------+ + + | EXTERNAL LAB | | | | + +---------+ + + External Lab: CBC (10/09/2016 4:20 AM PDT) + + + + + + | Component | Value | Ref Range | Performed | Pathologist | | | | | At | Signature | + + + + + + | WBC | 5.47 | 3.80 - 11.00 | EXTERNAL | | | | | K/uL | LAB | | + + + + + + | Non- | 3.06 (L) | 4.20 - 5.70 | EXTERNAL | | | Red Blood | | M/uL | LAB | | | Cells | | | | | | Counted | | | | | + + + + + + | Hemoglobin | 8.8 (L) | 13.2 - 17.0 | EXTERNAL | | | | | g/dL | LAB | | + + + + + + | Hematocrit, | 26.7 (L) | 39.0 - 50.0 % | EXTERNAL | | | POC | | | LAB | | + + + + + + | MCV | 87.4 | 80.0 - 100.0 fl | EXTERNAL | | | | | | LAB | | + + + + + + | MCH | 28.9 | 27.0 - 34.0 pg | EXTERNAL | | | | | | LAB | | + + + + + + | MCHC | 33.1 | 32.0 - 35.5 | EXTERNAL | | | | | g/dL | LAB | | + + + + + + | RDW-CV | 52.9 | 37 - 53 fl | EXTERNAL | | | | | | LAB | | + + + + + + | Platelet | 312 | 150 - 400 K/uL | EXTERNAL | | | Count | | | LAB | | | Plasma | | | | | + + + + + + | MPV | 6.8 | fl | EXTERNAL | | | | | | LAB | | + + + + + + | Differentia | AUTOMATED | | EXTERNAL | | | l Type | | | LAB | | + + + + + + | % Segmented | 62.41 | % | EXTERNAL | | | | | | LAB | | | Neutrophils | | | | | + + + + + + | % | 16.41 | % | EXTERNAL | | | Lymphocytes | | | LAB | | + + + + + + | % Monocytes | 10.42 | % | EXTERNAL | | | | | | LAB | | + + + + + + | % | 9.39 | % | EXTERNAL | | | Eosinophils | | | LAB | | + + + + + + | % Basophils | 1.37 | % | EXTERNAL | | | | | | LAB | | + + + + + + | Absolute | 3.42 | 1.90 - 7.40 | EXTERNAL | | | Segmented | | K/uL | LAB | | | Neutrophils | | | | | + + + + + + | Absolute | 0.90 (L) | 1.00 - 3.90 | EXTERNAL | | | Lymphocytes | | K/uL | LAB | | + + + + + + | Absolute | 0.57 | 0.00 - 0.80 | EXTERNAL | | | Monocytes | | K/uL | LAB | | + + + + + + | Absolute | 0.51 (H) | 0.00 - 0.50 | EXTERNAL | | | Eosinophils | | K/uL | LAB | | + + + + + + | Absolute | 0.08Comment: Testing | 0.00 - 0.10 | EXTERNAL | | | Basophils | performed at [facility], [address] | K/uL | LAB | | | | [address], | | | | | | [place] [address] | | | | + + + + + + + + | Specimen | + + | Blood specimen | | (specimen) | + + + +---------+ + + | Performing | Address | City/State/Zipcode | Phone Number | | Organization | | | | + +---------+ + + | EXTERNAL LAB | | | | + +---------+ + + Phosphorus (10/09/2016 4:20 AM PDT) + + + + + + | Component | Value | Ref Range | Performed | Pathologist | | | | | At | Signature | + + + + + + | PHOSPHORUS | 2.3Comment: Testing | 2.3 - 4.8 mg/dL | EXTERNAL | | | | performed at [facility], [address] | | LAB | | | | [address], | | | | | | [place] [address] | | | | + + + + + + + + | Specimen | + + | Blood specimen | | (specimen) | + + + +---------+ + + | Performing | Address | City/State/Zipcode | Phone Number | | Organization | | | | + +---------+ + + | EXTERNAL LAB | | | | + +---------+ + + Magnesium (10/09/2016 4:20 AM PDT) + + + + + + | Component | Value | Ref Range | Performed | Pathologist | | | | | At | Signature | + + + + + + | Magnesium | 2.5 (H)Comment: Testing | 1.7 - 2.4 mg/dL | EXTERNAL | | | | performed at [facility], [address] | | LAB | | | | [address], | | | | | | [place] [address] | | | | + + + + + + + + | Specimen | + + | Blood specimen | | (specimen) | + + + +---------+ + + | Performing | Address | City/State/Zipcode | Phone Number | | Organization | | | | + +---------+ + + | EXTERNAL LAB | | | | + +---------+ + + Hemoglobin A1C (10/09/2016 4:20 AM PDT) + + + + + + | Component | Value | Ref Range | Performed | Pathologist | | | | | At | Signature | + + + + + + | Hemoglobin | 5.3Comment: The [place] | 4.0 - 6.0 % | EXTERNAL [...] + + + + | Glycohemogl | 105Comment: The ADA | mg/dL | EXTERNAL | [...] | | | | | performed at [facility], [address] | | | | | | [facility], | | | | | | [place] [address] | | | | + + + + + + + + | Specimen | + + | Blood specimen | | (specimen) | + + + +---------+ + + | Performing | Address | City/State/Zipcode | Phone Number | | Organization | | | | + +---------+ + + | EXTERNAL LAB | | | | + +---------+ + + Bilirubin, Direct (10/09/2016 4:20 AM PDT) + + + + + + | Component | Value | Ref Range | Performed | Pathologist | | | | | At | Signature | + + + + + + | Bilirubin | 0.1Comment: Testing | 0.0 - 0.3 mg/dL | EXTERNAL | | | Direct | performed at [facility], [address] | | LAB | | | | [address], | | | | | | [place] [address] | | | | + + + + + + + + | Specimen | + + | | + + + +---------+ + + | Performing | Address | City/State/Zipcode | Phone Number | | Organization | | | | + +---------+ + + | EXTERNAL LAB | | | | + +---------+ + + Lipid Panel (10/09/2016 4:20 AM PDT) + + + + + + | Component | Value | Ref Range | Performed | Pathologist | | | | | At | Signature | + + + + + + | Cholesterol | 96 | mg/dL | EXTERNAL | | | | | | LAB | | + + + + + + | Triglycerid | 76 | mg/dL | EXTERNAL | | | es | | | LAB | | + + + + + + | HDL | 51 | mg/dL | EXTERNAL | | | | | | LAB | | + + + + + + | LDL, | 30Comment: Testing | mg/dL | EXTERNAL | | | Calculated | performed at [facility], [address] | | LAB | | | | [address], | | | | | | [place] [address] | | | | + + + [...] + +---------+ + + Comprehensive Metabolic Panel (10/09/2016 4:20 AM PDT) + + + + + + | Component | Value | Ref Range | Performed | Pathologist | | | | | At | Signature | + + + + + + | Na | 132 (L) | 135 - 145 | EXTERNAL | | | | | mmol/L | LAB | | + + + + + + | K | 5.2 (H) | 3.5 - 4.9 | EXTERNAL [...] + + + + | Glucose, | 156 (H) | 65 - 99 mg/dL | EXTERNAL | | | Fasting | | | LAB | | + + + + + + | BUN | 30 (H) | 8 - 25 mg/dL | EXTERNAL | | | | | | LAB | | + + + + + + | Creatinine | 5.2 (H) | 0.70 - 1.30 | EXTERNAL | | | | | mg/dL | LAB | | + + + + + + | BUN/Creatin | 6 | | EXTERNAL | | | ine Ratio | | | LAB | | + + + + + + | Calcium | 8.6 | 8.5 - 10.5 | EXTERNAL | [...] + + + + | Bilirubin | 0.4 | 0.1 - 1.5 mg/dL | EXTERNAL | | | Total | | | LAB | | + + + + + + | ALP, | 127 (H) | 35 - 115 U/L | EXTERNAL | | | External | | | LAB | | + + + + + + | AST | 17 | 10 - 45 U/L | EXTERNAL [...] [address], | | | | | | [place] [address] | | | | + + + + + + + + | Specimen | + + | Blood specimen | | (specimen) | + + + +---------+ + + | Performing | Address | City/State/Zipcode | Phone Number | | Organization | | | | + +---------+ + + | EXTERNAL LAB | | | | + +---------+ + + POC Glucose (10/08/2016 9:25 PM PDT) + + + + + + | Component | Value | Ref Range | Performed | Pathologist | | | | | At | Signature | + + + + + + | Glucose, | 169 (H)Comment: Testing | 65 - 99 mg/dL | EXTERNAL | | | Fingerstick | performed at [facility];[address] | | [address] | | | | [address];[place], [place] | | | | | | [address] | | | | + + + + + + + + | Specimen | + + | | + + + +---------+ + + | Performing | Address | City/State/Zipcode | Phone Number | | Organization | | | | + +---------+ + + | EXTERNAL LAB | | | | + +---------+ + + Basic Metabolic Panel (10/08/2016 7:36 PM PDT) + + + + + [...] + + + + | CO2 | 33 (H) | 23 - 32 mmol/L | EXTERNAL | | | | | | LAB | | + + + + + + | Anion Gap | 11 | 5 - 20 mmol/L | EXTERNAL | | | | | | LAB | | + + + + + + | Glucose, | 152 (H) | 65 - 99 mg/dL | EXTERNAL | | | Fasting | | | LAB | | + + + + + + | BUN | 24 | 8 - 25 mg/dL | EXTERNAL | | | | | | LAB | | + + + + + + | Creatinine | 4.6 (H) | 0.70 - 1.30 | EXTERNAL | | | | | mg/dL | LAB | | + + + + + + | BUN/Creatin | 5 | | EXTERNAL | | | ine Ratio | | | LAB | | + + + + + + | Calcium | 8.5 | 8.5 - 10.5 | EXTERNAL | [...] [address], | | | | | | [place] [address] | | | | + + + + + + + + | Specimen | + + | Blood specimen | | (specimen) | + + + +---------+ + + | Performing | Address | City/State/Zipcode | Phone Number | | Organization | | | | + +---------+ + + | EXTERNAL LAB | | | | + +---------+ + + POC Glucose (10/08/2016 4:17 PM PDT) + + + + + + | Component | Value | Ref Range | Performed | Pathologist | | | | | At | Signature | + + + + + + | Glucose, | 117 (H)Comment: Testing | 65 - 99 mg/dL | EXTERNAL | | | Fingerstick | performed at [facility];[address] | | LAB | | | | [address];[place] | | | | | | [address] | | | | + + + + + + + + | Specimen | + + | | + + + +---------+ + + | Performing | Address | City/State/Zipcode | Phone Number | | Organization | | | | + +---------+ + + | EXTERNAL LAB | | | | + +---------+ + + Basic Metabolic Panel (10/08/2016 3:59 PM PDT) + + + + + [...] + + + + | CO2 | 34 (H) | 23 - 32 mmol/L | EXTERNAL | | | | | | LAB | | + + + + + + | Anion Gap | 10 | 5 - 20 mmol/L | EXTERNAL | | | | | | LAB | | + + + + + + | Glucose, | 103 (H) | 65 - 99 mg/dL | EXTERNAL | | | Fasting | | | LAB | | + + + + + + | BUN | 20 | 8 - 25 mg/dL | EXTERNAL | | | | | | LAB | | + + + + + + | Creatinine | 4.2 (H) | 0.70 - 1.30 | EXTERNAL | | | | | mg/dL | LAB | | + + + + + + | BUN/Creatin | 5 | | EXTERNAL | | | ine Ratio | | | LAB | | + + + + + + | Calcium | 8.6 | 8.5 - 10.5 | EXTERNAL | | | | | mg/dL | LAB | | + + + + + + | Estimated | 16 (L)Comment: GFR <60: | mL/min/1.73m2 | EXTERNAL [...] [address], | | | | | | [place] [address] | | | | + + + + + + + + | Specimen | + + | Blood specimen | | (specimen) | + + + +---------+ + + | Performing | Address | City/State/Zipcode | Phone Number | | Organization | | | | + +---------+ + + | EXTERNAL LAB | | | | + +---------+ + + ECHO Complete (10/08/2016 3:29 PM PDT) + + | Specimen | + + | | + + + + + | Impressions | Performed At | + + + | 1. Overall left ventricular systolic function is normal with, an EF | | | between 60 - 65 %. 2. Mild asymmetric septal hypertrophy with septal | | | thickness 13 - 15 mm. | | + + + + + + | Narrative | Performed At | + + + | Patient Name: CAROL POTTER Date of : 1965 | | | Performing Physician: Masoud Rodriguez MD, | | | FACC, FACP, FASNC | | | | | | INDICATIONS Shortness of breath, Hyperkalemia, Pain, | | | ERSD CONCLUSIONS 1. Overall left ventricular | | | systolic function is normal with, an EF between 60 - 65 %. 2. Mild | | | asymmetric septal hypertrophy with septal thickness 13 - 15 mm. | | | FINDINGS -------- ECG rhythm: Sinus rhythm. Study: A 2-dimensional | | | transthoracic echocardiogram with m-mode, spectral and color flow | | | Doppler was perfomed. Study: This was a technically adequate study. | | | Left Ventricle: Overall left ventricular systolic function is normal | | | with, an EF between 60 - 65 %. Left Ventricle: The left ventricle | | | cavity size is normal. Left Ventricle: Mild asymmetric septal | | | hypertrophy with septal thickness 13 - 15 mm. Right Ventricle: The RV | | | is normal in size and function. Left Atrium: The left atrium is | | | moderately dilated. Right Atrium: The right atrium is normal in size. | | | Aortic Valve: The aortic valve was not well visualized. Aortic | | | Valve: There is no evidence of aortic regurgitation. Aortic Valve: | | | There is no evidence of aortic stenosis. Mitral Valve: Mild mitral | | | regurgitation is present. Mitral Valve: Mild thickening of the | | | anterior mitral valve leaflet. Mitral Valve: There is mild thickening | | | of the posterior mitral valve leaflet. Tricuspid Valve: The | | | tricuspid valve appears structurally normal. Tricuspid Valve: Trace | | | tricuspid regurgitation present. Tricuspid Valve: Right ventricular | | | systolic pressure (pulmonary artery systolic pressure) is normal at < | | | 35 mmHg. Pulmonic Valve: Pulmonic valve appears structurally normal. | | | Pulmonic Valve: Trace pulmonic regurgitation. Pericardium: | | | Anterior echo free space present. IVC/Hepatic Veins: The inferior | | | vena cava is normal in size and collapses > 50 % with sniff, | | | indicating normal central venous pressures. MEASUREMENTS | | | Ao asc: 2.98 cm Ao sinus: 3.[address] junct: | | | 2.82 cm LA Major: 5.32 cm EDV(Teich): 139.86 ml IVSd: | | | 1.26 cm LVIDd: 5.37 cm LVPWd: 1.05 cm LVOT Diam: 2.24 cm | | | %FS: 32.84 % EF(Teich): 60.82 % ESV(Teich): 54.79 ml IVSs: | | | 1.58 cm LVIDs: 3.61 cm LVPWs: 1.65 cm SV(Teich): 85.06 | | | ml RA Major: 4.43 cm RVIDd: 3.14 cm LVEF MOD A2C: 65.86 % | | | SV MOD A2C: 67.70 ml LVEF MOD A4C: 64.67 % SV MOD A4C: | | | 81.67 ml EF Biplane: 64.06 % LVEDV MOD BP: 113.35 ml LVESV | | | MOD BP: 40.72 ml LVEDV MOD A2C: 102.78 ml LVLd A2C: 8.83 cm | | | LVEDV MOD A4C: 126.29 ml LVLd A4C: 8.78 cm LVESV MOD A2C: | | | 35.08 ml LVLs A2C: 6.95 cm LVESV MOD A4C: 44.61 ml LVLs A4C: | | | 6.52 cm LAESV(A-L): 63.51 ml LAESV Index (A-L): 33.42 | | | ml/m2 LAAs A2C: 18.93 cm2 LAESV A-L A2C: 63.74 ml LALs A2C: | | | 4.77 cm LAAs A4C: 18.86 cm2 LAESV A-L A4C: 59.30 ml LALs | | | A4C: 5.09 cm Ao Diam: 3.22 cm AV Cusp: 2.15 cm LA Diam: | | | 4.51 cm LA/Ao: 1.39 %FS: 25.51 % EDV(Teich): 103.27 ml | | | EF(Teich): 50.26 % ESV(Teich): 51.36 ml IVSd: 1.33 cm | | | IVSs: 1.36 cm LVIDd: 4.71 cm LVIDs: 3.51 cm LVPWd: 1.07 | | | cm LVPWs: 1.98 cm SV(Teich): 51.91 ml D-E Excursion: 1.65 | | | cm E-F Cal[place]oun: 0.08 m/s TAPSE: 1.81 cm IVC diameter: 2.60 | | | cm IVC collapse: 1.04 cm IVC % collapse: 57.39 % HR: 81.40 | | | BPM AV maxP.84 mmHg AV meanP.14 mmHg AV Vmax: | | | 1.48 m/s AV Vmean: 1.09 m/s AV VTI: 31.92 cm JACKIE Vmax: | | | 2.17 cm2 JACKIE (VTI): 2.19 cm2 AVAI Vmax: 0.00 cm2/m2 AVAI | | | (VTI): 0.00 cm2/m2 LVCI Dopp: 2.93 l/minm2 LVCO Dopp: 5.57 | | | l/min HR: 79.54 BPM LVOT maxP.68 mmHg LVOT meanPG: | | | 1.62 mmHg LVSI Dopp: 36.85 ml/m2 LVSV Dopp: 70.02 ml LVOT | | | Vmax: 0.81 m/s LVOT Vmean: 0.61 m/s LVOT VTI: 17.69 cm MR | | | maxP.44 mmHg MR Vmax: 3.98 m/s MV A Lenard: 0.97 m/s MV | | | DecT: 189.62 ms MV E Lenard: 1.09 m/s MV E/A Ratio: 1.13 MV | | | PHT: 55.48 ms MVA By PHT: 3.96 cm2 MV A Dur: 121.10 ms MV | | | maxP.83 mmHg MV meanP.62 mmHg MV Vmax: 1.09 m/s MV | | | Vmean: 0.77 m/s MV VTI: 24.75 cm MVA (VTI): 2.82 cm2 | | | Septal e': 0.08 m/s Septal E/e': 13.19 Lateral e': 0.10 m/s | | | Lateral E/e': 10.27 P Vein A: 0.38 m/s P Vein A Dur: | | | 173.01 ms P Vein D: 0.50 m/s P Vein S/D Ratio: 1.00 P Vein S: | | | 0.50 m/s PAEDP: 8.85 mmHg PRend P.85 mmHg PRend Vmax: | | | 0.68 m/s HR: 84.58 BPM PV maxP.71 mmHg PV meanPG: | | | 1.24 mmHg PV Vmax: 0.82 m/s PV Vmean: 0.52 m/s PV VTI: | | | 18.24 cm RAP: 7 mmHg RV S': 0.11 m/s RVSP: 29.57 mmHg TR | | | maxP.57 mmHg TR Vmax: 2.37 m/s TV A Lenard: 0.49 m/s TV | | | Dec Calhoun: 3.55 m/s2 TV Dec Time: 184.15 ms TV E Lenard: 0.64 | | | m/s TV E/A Ratio: 1.30 Video Production Intern: Authenticated by: | | | Masoud Rodriguez MD, FACC, FACP, FASMO Report Date/Time: -- | | | [id number] | | + + + + + | Procedure Note | + + | Néstor, Rad Conversion - 02/04/2019 10:13 PM PDT Patient Name: Aleisha POTTER | | : 1965 Performing Physician: Masoud Rodriguez MD, FACC, | | FACP, | | FASNC INDICATIONS--------- | | --Shortness of breath, Hyperkalemia, Pain, ERSD CONCLUSIONS 1. Overall left | | ventricular systolic function is normal with, an EF between 60 - 65 %.2. Mild asymmetric | | septal hypertrophy with septal thickness 13 - 15 mm. FINDINGS--------ECG rhythm: Sinus | | rhythm.Study: A 2-dimensional transthoracic echocardiogram with m-mode, spectral and | | color flow Doppler was perfomed.Study: This was a technically adequate study.Left | | Ventricle: Overall left ventricular systolic function is normal with, an EF between 60 - | | 65 %.Left Ventricle: The left ventricle cavity size is normal.Left Ventricle: Mild | | asymmetric septal hypertrophy with septal thickness 13 - 15 mm.Right Ventricle: The RV | | is normal in size and function.Left Atrium: The left atrium is moderately dilated.Right | | Atrium: The right atrium is normal in size.Aortic Valve: The aortic valve was not well | | visualized.Aortic Valve: There is no evidence of aortic regurgitation.Aortic Valve: | | There is no evidence of aortic stenosis.Mitral Valve: Mild mitral regurgitation is | | present.Mitral Valve: Mild thickening of the anterior mitral valve leaflet.Mitral Valve: | | There is mild thickening of the posterior mitral valve leaflet.Tricuspid Valve: The | | tricuspid valve appears structurally normal.Tricuspid Valve: Trace tricuspid | | regurgitation present.Tricuspid Valve: Right ventricular systolic pressure (pulmonary | | artery systolic pressure) is normal at < 35 mmHg.Pulmonic Valve: Pulmonic valve appears | | structurally normal.Pulmonic Valve: Trace pulmonic regurgitation.Pericardium: Anterior | | echo free space present.IVC/Hepatic Veins: The inferior vena cava is normal in size and | | collapses > 50 % with sniff, indicating normal central venous pressures. | | MEASUREMENTS Ao asc: 2.98 cmAo sinus: 3.[address] junct: 2.82 cmLA | | Major: 5.32 cmEDV(Teich): 139.86 mlIVSd: 1.26 cmLVIDd: 5.37 cmLVPWd: 1.05 | | cmLVOT Diam: 2.24 cm%FS: 32.84 %EF(Teich): 60.82 %ESV(Teich): 54.79 mlIVSs: | | 1.58 cmLVIDs: 3.61 cmLVPWs: 1.65 cmSV(Teich): 85.06 mlRA Major: 4.43 cmRVIDd: | | 3.14 cmLVEF MOD A2C: 65.86 %SV MOD A2C: 67.70 mlLVEF MOD A4C: 64.67 %SV MOD A4C: | | 81.67 mlEF Biplane: 64.06 %LVEDV MOD BP: 113.35 mlLVESV MOD BP: 40.72 mlLVEDV MOD | | A2C: 102.78 mlLVLd A2C: 8.83 cmLVEDV MOD A4C: 126.29 mlLVLd A4C: 8.78 cmLVESV | | MOD A2C: 35.08 mlLVLs A2C: 6.95 cmLVESV MOD A4C: 44.61 mlLVLs A4C: 6.52 | | cmLAESV(A-L): 63.51 mlLAESV Index (A-L): 33.42 ml/m2LAAs A2C: 18.93 [id number] A-L | | A2C: 63.74 mlLALs A2C: 4.77 cmLAAs A4C: 18.86 [id number] A-L A4C: 59.30 mlLALs | | A4C: 5.09 cmAo Diam: 3.22 cmAV Cusp: 2.15 cmLA Diam: 4.51 cmLA/Ao: 1.39%FS: | | 25.51 %EDV(Teich): 103.27 mlEF(Teich): 50.26 %ESV(Teich): 51.36 mlIVSd: 1.33 | | cmIVSs: 1.36 cmLVIDd: 4.71 cmLVIDs: 3.51 cmLVPWd: 1.07 cmLVPWs: 1.98 | | cmSV(Teich): 51.91 mlD-E Excursion: 1.65 cmE-F Calhoun: 0.08 m/sTAPSE: 1.81 cmIVC | | diameter: 2.60 cmIVC collapse: 1.04 cmIVC % collapse: 57.39 %HR: 81.40 BPMAV | | maxP.84 mmHgAV meanP.14 mmHgAV Vmax: 1.48 m/[place] Vmean: 1.09 m/[place] VTI: | | 31.92 cmAVA Vmax: 2.17 cm2AVA (VTI): 2.19 ta9DYPW Vmax: 0.00 cm2/m2AVAI (VTI): | | 0.00 cm2/m2LVCI Dopp: 2.93 l/hmvf1ABQA Dopp: 5.57 l/minHR: 79.54 BPMLVOT maxPG: | | 2.68 mmHgLVOT meanP.62 mmHgLVSI Dopp: 36.85 ml/m2LVSV Dopp: 70.02 mlLVOT Vmax: | | 0.81 m/sLVOT Vmean: 0.61 m/sLVOT VTI: 17.69 cmMR maxP.44 mmHgMR Vmax: | | 3.98 m/sMV A Lenard: 0.97 m/sMV DecT: 189.62 msMV E Lenard: 1.09 m/sMV E/A Ratio: | | 1.13MV PHT: 55.48 msMVA By PHT: 3.96 cm2MV A Dur: 121.10 msMV maxP.83 mmHgMV | | meanP.62 mmHgMV Vmax: 1.09 m/sMV Vmean: 0.77 m/sMV VTI: 24.75 cmMVA (VTI): | | 2.82 pt1Oqhlwl e': 0.08 m/sSeptal E/e': 13.19Lateral e': 0.10 m/sLateral E/e': | | 10.27P Vein A: 0.38 m/sP Vein A Dur: 173.01 msP Vein D: 0.50 m/sP Vein S/D Ratio: | | 1.00P Vein S: 0.50 m/sPAEDP: 8.85 mmHgPRend P.85 mmHgPRend Vmax: 0.68 | | m/sHR: 84.58 BPMPV maxP.71 mmHgPV meanP.24 mmHgPV Vmax: 0.82 m/sPV | | Vmean: 0.52 m/sPV VTI: 18.24 cmRAP: 7 mmHgRV S': 0.11 m/sRVSP: 29.57 mmHgTR | | maxP.57 mmHgTR Vmax: 2.37 m/sTV A Lenard: 0.49 m/sTV Dec Calhoun: 3.55 m/s2TV | | Dec Time: 184.15 msTV E Lenard: 0.64 m/sTV E/A Ratio: 1.30 Video Production Intern: | | ASAuthenticated by: Masoud Rodriguez MD, FACC, FACP, FASNCReport Date/Time: -- | | [id number] IMPRESSION: 1. Overall left ventricular systolic function is | | normal with, an EF between 60 - 65 %.2. Mild asymmetric septal hypertrophy with septal | | thickness 13 - 15 mm. | |LVPWs: 1.65 cm | |SV(Teich): 85.06 ml | |RA Major: 4.43 cm | |RVIDd: 3.14 cm | |LVEF MOD A2C: 65.86 % | |SV MOD A2C: 67.70 ml | |LVEF MOD A4C: 64.67 % | |SV MOD A4C: 81.67 ml | |EF Biplane: 64.06 % | |LVEDV MOD BP: 113.35 ml | |LVESV MOD BP: 40.72 ml | |LVEDV MOD A2C: 102.78 ml | |LVLd A2C: 8.83 cm | |LVEDV MOD A4C: 126.29 ml | |LVLd A4C: 8.78 cm | |LVESV MOD A2C: 35.08 ml | |LVLs A2C: 6.95 cm | |LVESV MOD A4C: 44.61 ml | |LVLs A4C: 6.52 cm | |LAESV(A-L): 63.51 ml | |LAESV Index (A-L): 33.42 ml/m2 | |LAAs A2C: 18.93 cm2 | |LAESV A-L A2C: 63.74 ml | |LALs A2C: 4.77 cm | |LAAs A4C: 18.86 cm2 | |LAESV A-L A4C: 59.30 ml | |LALs A4C: 5.09 cm | |Ao Diam: 3.22 cm | |AV Cusp: 2.15 cm | |LA Diam: 4.51 cm | |LA/Ao: 1.39 | |%FS: 25.51 % | |EDV(Teich): 103.27 ml | |EF(Teich): 50.26 % | |ESV(Teich): 51.36 ml | |IVSd: 1.33 cm | |IVSs: 1.36 cm | |LVIDd: 4.71 cm | |LVIDs: 3.51 cm | |LVPWd: 1.07 cm | |LVPWs: 1.98 cm | |SV(Teich): 51.91 ml | |D-E Excursion: 1.65 cm | |E-F Calhoun: 0.08 m/s | |TAPSE: 1.81 cm | |IVC diameter: 2.60 cm | |IVC collapse: 1.04 cm | |IVC % collapse: 57.39 % | |HR: 81.40 BPM | |AV maxP.84 mmHg | |AV meanP.14 mmHg | |AV Vmax: 1.48 m/s | |AV Vmean: 1.09 m/s | |AV VTI: 31.92 cm | |JACKIE Vmax: 2.17 cm2 | |JACKIE (VTI): 2.19 cm2 | |AVAI Vmax: 0.00 cm2/m2 | |AVAI (VTI): 0.00 cm2/m2 | |LVCI Dopp: 2.93 l/minm2 | |LVCO Dopp: 5.57 l/min | |HR: 79.54 BPM | |LVOT maxP.68 mmHg | |LVOT meanP.62 mmHg | |LVSI Dopp: 36.85 ml/m2 | |LVSV Dopp: 70.02 ml | |LVOT Vmax: 0.81 m/s | |LVOT Vmean: 0.61 m/s | |LVOT VTI: 17.69 cm | |MR maxP.44 mmHg | |MR Vmax: 3.98 m/s | |MV A Lenard: 0.97 m/s | |MV DecT: 189.62 ms | |MV E Lenard: 1.09 m/s | |MV E/A Ratio: 1.13 | |MV PHT: 55.48 ms | |MVA By PHT: 3.96 cm2 | |MV A Dur: 121.10 ms | |MV maxP.83 mmHg | |MV meanP.62 mmHg | |MV Vmax: 1.09 m/s | |MV Vmean: 0.77 m/s | |MV VTI: 24.75 cm | |MVA (VTI): 2.82 cm2 | |Septal e': 0.08 m/s | |Septal E/e': 13.19 | |Lateral e': 0.10 m/s | |Lateral E/e': 10.27 | |P Vein A: 0.38 m/s | |P Vein A Dur: 173.01 ms | |P Vein D: 0.50 m/s | |P Vein S/D Ratio: 1.00 | |P Vein S: 0.50 m/s | |PAEDP: 8.85 mmHg | |PRend P.85 mmHg | |PRend Vmax: 0.68 m/s | |HR: 84.58 BPM | |PV maxP.71 mmHg | |PV meanP.24 mmHg | |PV Vmax: 0.82 m/s | |PV Vmean: 0.52 m/s | |PV VTI: 18.24 cm | |RAP: 7 mmHg | |RV S': 0.11 m/s | |RVSP: 29.57 mmHg | |TR maxP.57 mmHg | |TR Vmax: 2.37 m/s | |TV A Lenard: 0.49 m/s | |TV Dec Calhoun: 3.55 m/s2 | |TV Dec Time: 184.15 ms | |TV E Lenard: 0.64 m/s | |TV E/A Ratio: 1.30 | | | |Video Production Intern: | |Authenticated by: Masoud Rodriguez MD, FACC, FACP, FASMO | |Report Date/Time: -- [id number] | | | |IMPRESSION: | |1. Overall left ventricular systolic function is normal with, an EF between 60 - 65 %. | |2. Mild asymmetric septal hypertrophy with septal thickness 13 - 15 mm. | + + POC Glucose (10/08/2016 11:05 AM PDT) + + + + + + | Component | Value | Ref Range | Performed | Pathologist | | | | | At | Signature | + + + + + + | Glucose, | 99Comment: Testing | 65 - 99 mg/dL | EXTERNAL | | | Fingerstick | performed at [facility];[address] | | LAB | | | | [address];[place] | | | | | | [address] | | | | + + + + + + + + | Specimen | + + | | + + + +---------+ + + | Performing | Address | City/State/Zipcode | Phone Number | | Organization | | | | + +---------+ + + | EXTERNAL LAB | | | | + +---------+ + + CK-MB (10/08/2016 10:01 AM PDT) + + + + + -+ | Component | Value | Ref Range | Performed | Pathologist | | | | | At | Signature | + + + + + -+ | CK-MB | 2.6 | 0.5 - 3.6 ng/mL | EXTERNAL [...] | + +---------+ + + Troponin I (10/08/2016 10:01 AM PDT) + + + + + [...] | | | | | | ACUTE [place] Testing | | | | | | performed at [facility] | | | | | | [facility];[place], [place] | | | | | | [address] | | | | + + + + + + + + | Specimen | + + | Blood specimen | | (specimen) | + + + +---------+ + + | Performing | Address | City/State/Zipcode | Phone Number | | Organization | | | | + +---------+ + + | EXTERNAL LAB | | | | + +---------+ + + CK Total (10/08/2016 10:01 AM PDT) + + + + + + | Component | Value | Ref Range | Performed | Pathologist | | | | | At | Signature | + + + + + + | CK, Total | 65Comment: Testing | 55 - 400 U/L | EXTERNAL | | | | performed at [facility];[address] | | LAB | | | | [address];[place], [place] | | | | | | [address] | | | | + + + [...] + +---------+ + + ECG 12 lead (10/08/2016 8:29 AM PDT) + + + + + + | Component | Value | Ref Range | Performed | Pathologist | | | | | At | Signature | + + + + + + | DIAGNOSIS: | Normal sinus | | EXTERNAL | | | | rhythmNonspecific T wave | | LAB | | | | abnormalityAbnormal | | | | | | ECGWhen compared with | | | | | | ECG of 08-SEP-2016 | | | | | | 00:03,NH interval has | | | | | | decreasedQuestionable | | | | | | change in QRS | | | | | | durationConfirmed by | | | | | | HARRIETT RODRIGUEZ ([id number]) on | | | | | | 10/08/2016 3:29:41 PM | | | | + + + + + + + + | Specimen | + + | | + + + + + | Narrative | Performed At | + + + | Historically converted procedure from [facility] Epic environment | EXTERNAL LAB | + + + + +---------+ + + | Performing | Address | City/State/Zipcode | Phone Number | | Organization | | | | + +---------+ + + | EXTERNAL LAB | | | | + +---------+ + + Basic Metabolic Panel (10/08/2016 7:36 AM PDT) + + + + + [...] + + + + | K | 5.9 (H)Comment: SPECIMEN | 3.5 - 4.9 | EXTERNAL | | | | NOT HEMOLYZED | mmol/L | LAB | | + + + + + + | Cl | 92 (L) | 99 - 109 mmol/L | [...] + + + + | Glucose, | 177 (H) | 65 - 99 mg/dL | EXTERNAL | | | Fasting | | | LAB | | + + + + + + | BUN | 66 (H) | 8 - 25 mg/dL | EXTERNAL | | | | | | LAB | | + + + + + + | Creatinine | 8.4 (H) | 0.70 - 1.30 | EXTERNAL [...] [address], | | | | | | [place] [address] | | | | + + + + + + + + | Specimen | + + | Blood specimen | | (specimen) | + + + +---------+ + + | Performing | Address | City/State/Zipcode | Phone Number | | Organization | | | | + +---------+ + + | EXTERNAL LAB | | | | + +---------+ + + CK-MB (10/08/2016 6:22 AM PDT) + + + + + -+ | Component | Value | Ref Range | Performed | Pathologist | | | | | At | Signature | + + + + + -+ | CK-MB | 2.7 | 0.5 - 3.6 ng/mL | EXTERNAL | | | | | | LAB | | + + + + + -+ | CK-MB Index | 4.1Comment: CK INDEX | | EXTERNAL | | [...] | + +---------+ + + Troponin I (10/08/2016 6:22 AM PDT) + + + + + [...] | | | | | | ACUTE [place] Testing | | | | | | performed at [facility];[address] | | | | | | [facility];[place], [place] | | | | | | [address] | | | | + + + + + + + + | Specimen | + + | Blood specimen | | (specimen) | + + + +---------+ + + | Performing | Address | City/State/Zipcode | Phone Number | | Organization | | | | + +---------+ + + | EXTERNAL LAB | | | | + +---------+ + + POC Glucose (10/08/2016 6:22 AM PDT) + + + + + + | Component | Value | Ref Range | Performed | Pathologist | | | | | At | Signature | + + + + + + | Glucose, | 114 (H)Comment: Testing | 65 - 99 mg/dL | EXTERNAL | | | Fingerstick | performed at [facility];[address] | | LAB | | | | [address];[place], [place] | | | | | | [address] | | | | + + + + + + + + | Specimen | + + | | + + + +---------+ + + | Performing | Address | City/State/Zipcode | Phone Number | | Organization | | | | + +---------+ + + | EXTERNAL LAB | | | | + +---------+ + + CK Total (10/08/2016 6:22 AM PDT) + + + + + + | Component | Value | Ref Range | Performed | Pathologist | | | | | At | Signature | + + + + + + | CK, Total | 66Comment: Testing | 55 - 400 U/L | EXTERNAL | | | | performed at [facility];[address] | | LAB | | | | [address];[place], [place] | | | | | | [address] | | | | + + + + + + + + | Specimen | + + | Blood specimen | | (specimen) | + + + +---------+ + + | Performing | Address | City/State/Zipcode | Phone Number | | Organization | | | | + +---------+ + + | EXTERNAL LAB | | | | + +---------+ + + Drugs Of ABuse Screen, Urine (H) (10/08/2016 4:06 AM PDT) + + + + + + | Component | Value | Ref Range | Performed | Pathologist | | | | | At | Signature | + + + + + + | Methampheta | NEGATIVEComment: | | EXTERNAL | | | mine/ | Positive cutoff for AMP | | LAB | | | Amphetamine | = 1000 ng/mL | | | | | Screen, | | | | | | UA, POC | | | | | + + + + + + | Barbiturate | NEGATIVEComment: | | EXTERNAL | | | s Screen, | Positive cutoff for MINE | | LAB | | | Urine | = 200 ng/mL | | | | + + + + + + | Benzodiazep | NEGATIVEComment: | | EXTERNAL | | | amelia | Positive cutoff for | | LAB | | | Screen, | BENZO = 200 ng/mL | | | | | Urine | | | | | + + + + + + | Cocaine | NEGATIVEComment: | | EXTERNAL | | | | Positive cutoff for IRENE | | LAB | | | | = 300 ng/mL | | | | + + + + + + | Methadone | NEGATIVEComment: | | EXTERNAL | | | | Positive cutoff for MTD | | LAB | | | | = 300 ng/mL | | | | + + + + + + | Opiates | POSITIVE (A)Comment: | | EXTERNAL | | | | Positive cutoff for OPI | | LAB | | | | = 300 ng/mL | | | | + + + + + + | PCP | NEGATIVEComment: | | EXTERNAL | | | | Positive cutoff for PCP | | LAB | | | | = 25 ng/mL | | | | + + + + + + | Cannabinoid | NEGATIVEComment: | | EXTERNAL | | | s Screen, | Positive cutoff for | | LAB | | | Serum | THC = 50 ng/mLThe above | | | | | | are unconfirmed | | | | | | screening results. | | | | | | These results are to | | | | | | be used only for medical | | | | | | (i.e.,treatment) | | | | | | purposes. Unconfirmed | | | | | | screening results must | | | | | | not be used for | | | | | | non-medical purposes | | | | | | (e.g., employment | | | | | | testing, legal | | | | | | testing).Testing | | | | | | performed at [facility] | | | | | | [facility];[place], [place] | | | | | | [address] | | | | + + + + + + + + | Specimen | + + | Urine specimen | | (specimen) | + + + +---------+ + + | Performing | Address | City/State/Zipcode | Phone Number | | Organization | | | | + +---------+ + + | EXTERNAL LAB | | | | + +---------+ + + PTT (10/08/2016 2:39 AM PDT) + + + + + + | Component | Value | Ref Range | Performed | Pathologist | | | | | At | Signature | + + + + + + | aPTT, | 29Comment: Testing | 23 - 32 seconds | EXTERNAL | | | Patient | performed at [facility];[address] | | LAB | | | | [address];[place], [place] | | | | | | [address] | | | | + + + + + + + + | Specimen | + + | | + + + +---------+ + + | Performing | Address | City/State/Zipcode | Phone Number | | Organization | | | | + +---------+ + + | EXTERNAL LAB | | | | + +---------+ + + Guyime INR (10/08/2016 2:39 AM PDT) + + + + + [...] | | | | | performed at [facility] | | | | | | [address];[place], [place] | | | | | | [address] | | | | + + + + + + + + | Specimen | + + | | + + + +---------+ + + | Performing | Address | City/State/Zipcode | Phone Number | | Organization | | | | + +---------+ + + | EXTERNAL LAB | | | | + +---------+ + + External Lab: CBC (10/08/2016 2:39 AM PDT) + + + + + + | Component | Value | Ref Range | Performed | Pathologist | | | | | At | Signature | + + + + + + | WBC | 9.28 | 3.80 - 11.00 | EXTERNAL | | | | | K/uL | LAB | | + + + + + + | Non- | 3.02 (L) | 4.20 - 5.70 | EXTERNAL | | | Red Blood | | M/uL | LAB | | | Cells | | | | | | Counted | | | | | + + + + + + | Hemoglobin | 8.8 (L) | 13.2 - 17.0 | EXTERNAL | | | | | g/dL | LAB | | + + + + + + | Hematocrit, | 26.7 (L) | 39.0 - 50.0 % | EXTERNAL | | | POC | | | LAB | | + + + + + + | MCV | 88.2 | 80.0 - 100.0 fl | EXTERNAL | | | | | | LAB | | + + + + + + | MCH | 29.0 | 27.0 - 34.0 pg | EXTERNAL | | | | | | LAB | | + + + + + + | MCHC | 32.9 | 32.0 - 35.5 | EXTERNAL | | | | | g/dL | LAB | | + + + + + + | RDW-CV | 51.6 | 37 - 53 fl | EXTERNAL | | | | | | LAB | | + + + + + + | Platelet | 306 | 150 - 400 K/uL | EXTERNAL | | | Count | | | LAB | | | Plasma | | | | | + + + + + + | MPV | 6.3 | fl | EXTERNAL | | | | | | LAB | | + + + + + + | Differentia | AUTOMATED | | EXTERNAL | | | l Type | | | LAB | | + + + + + + | % Segmented | 74.31 | % | EXTERNAL | | | | | | LAB | | | Neutrophils | | | | | + + + + + + | % | 8.74 | % | EXTERNAL | | | Lymphocytes | | | LAB | | + + + + + + | % Monocytes | 9.58 | % | EXTERNAL | | | | | | LAB | | + + + + + + | % | 6.60 | % | EXTERNAL | | | Eosinophils | | | LAB | | + + + + + + | % Basophils | 0.77 | % | EXTERNAL | | | | | | LAB | | + + + + + + | Absolute | 6.90 | 1.90 - 7.40 | EXTERNAL | | | Segmented | | K/uL | LAB | | | Neutrophils | | | | | + + + + + + | Absolute | 0.81 (L) | 1.00 - 3.90 | EXTERNAL | | | Lymphocytes | | K/uL | LAB | | + + + + + + | Absolute | 0.89 (H) | 0.00 - 0.80 | EXTERNAL | | | Monocytes | | K/uL | LAB | | + + + + + + | Absolute | 0.61 (H) | 0.00 - 0.50 | EXTERNAL | | | Eosinophils | | K/uL | LAB | | + + + + + + | Absolute | 0.07Comment: Testing | 0.00 - 0.10 | EXTERNAL | | | Basophils | performed at [facility];[address] | K/uL | LAB | | | | [address];[place] | | | | | | [address] | | | | + + + + + + + + | Specimen | + + | | + + + +---------+ + + | Performing | Address | City/State/Zipcode | Phone Number | | Organization | | | | + +---------+ + + | EXTERNAL LAB | | | | + +---------+ + + Potassium (10/08/2016 2:39 AM PDT) + + + + + + | Component | Value | Ref Range | Performed | Pathologist | | | | | At | Signature | + + + + + + | K | 6.2 (H)Comment: Testing | 3.5 - 4.9 | EXTERNAL | | | | performed at [facility];[address] | mmol/L | LAB | | | | [address];[place], [place] | | | | | | [address] | | | | + + + [...] +---------+ + + B Type Natriuretic Peptide (10/08/2016 2:39 AM PDT) + + + + + + | Component | Value | Ref Range | Performed | Pathologist | | | | | At | Signature | + + + + + + | BNP | 359 (H)Comment: Testing | 0 - 100 pg/mL | EXTERNAL | | | | performed at [facility];[address] | | LAB | | | | [address];[place] | | | | | | [address] | | | | + + + + + + + + | Specimen | + + | | + + + +---------+ + + | Performing | Address | City/State/Zipcode | Phone Number | | Organization | | | | + +---------+ + + | EXTERNAL LAB | | | | + +---------+ + + HISTORICAL LAB PANEL RESULT (10/08/2016 2:16 AM PDT) + + + + + -+ | Component | Value | Ref Range | Performed | Pathologist | | | | | At | Signature | + + + + + -+ | WBC | SPECIMEN CLOTTED, SAMPLE | 3.80 - 11.00 | EXTERNAL | | | | TO BE REDRAWN | K/uL | LAB | | + + + + + -+ | Non- | SPECIMEN CLOTTED, SAMPLE | 4.20 - 5.70 | EXTERNAL | | | Red Blood | TO BE REDRAWN | M/uL | LAB | | | Cells | | | | | | Counted | | | | | + + + + + -+ | Hemoglobin | SPECIMEN CLOTTED, SAMPLE | 13.2 - 17.0 | EXTERNAL | | | | TO BE REDRAWN | g/dL | LAB | | + + + + + -+ | Hematocrit, | SPECIMEN CLOTTED, SAMPLE | 39.0 - 50.0 % | EXTERNAL | | | POC | TO BE REDRAWN | | LAB | | + + + + + -+ | MCV | SPECIMEN CLOTTED, SAMPLE | 80.0 - 100.0 fl | EXTERNAL | | | | TO BE REDRAWN | | LAB | | + + + + + -+ | MCH | SPECIMEN CLOTTED, SAMPLE | 27.0 - 34.0 pg | EXTERNAL | | | | TO BE REDRAWN | | LAB | | + + + + + -+ | MCHC | SPECIMEN CLOTTED, SAMPLE | 32.0 - 35.5 | EXTERNAL | | | | TO BE REDRAWN | g/dL | LAB | | + + + + + -+ | RDW-CV | SPECIMEN CLOTTED, SAMPLE | 37 - 53 fl | EXTERNAL | | | | TO BE REDRAWN | | LAB | | + + + + + -+ | Platelet | SPECIMEN CLOTTED, SAMPLE | 150 - 400 K/uL | EXTERNAL | | | Count | TO BE REDRAWN | | LAB | | | Plasma | | | | | + + + + + -+ | MPV | SPECIMEN CLOTTED, SAMPLE | fl | EXTERNAL | | | | TO BE REDRAWN | | LAB | | + + + + + -+ | Differentia | SPECIMEN CLOTTED, SAMPLE | | EXTERNAL | | | l Type | TO BE REDRAWN | | LAB | | + + + + + -+ | Result | SPECIMEN CLOTTED, SAMPLE | | EXTERNAL | | | | TO BE REDRAWN | | LAB | | + + + + + -+ | Na | 131 (L) | 135 - 145 | EXTERNAL | | | | | mmol/L | LAB | | + + + + + -+ | K | 6.2 (H)Comment: MODERATE | 3.5 - 4.9 | EXTERNAL | | | | HEMOLYSIS | mmol/L | LAB | | + + + + + -+ | Cl | 93 (L) | 99 - 109 mmol/L | EXTERNAL | | | | | | LAB | | + + + + + -+ | CO2 | 27 | 23 - 32 mmol/L | EXTERNAL | | | | | | LAB | | + + + + + -+ | Anion Gap | 18 | 5 - 20 mmol/L | EXTERNAL | | | | | | LAB | | + + + + + -+ | Glucose, | 88 | 65 - 99 mg/dL | EXTERNAL | | | Fasting | | | LAB | | + + + + + -+ | BUN | 61 (H) | 8 - 25 mg/dL | EXTERNAL | | | | | | LAB | | + + + + + -+ | Creatinine | 8.5 (H) | 0.70 - 1.30 | EXTERNAL | | | | | mg/dL | LAB | | + + + + + -+ | BUN/Creatin | 7 | | EXTERNAL | | | ine Ratio | | | LAB | | + + + + + -+ | Calcium | 8.6 | 8.5 - 10.5 | EXTERNAL | | | | | mg/dL | LAB | | + + + + + -+ | Protein, | 7.8 | 6.3 - 8.2 g/dL | EXTERNAL | | | Total | | | LAB | | + + + + + -+ | Albumin | 3.2 (L) | 3.6 - 5.0 g/dL | EXTERNAL | | | | | | LAB | | + + + + + -+ | Globulin | 4.5 | 1.3 - 4.9 g/dL | EXTERNAL | | | | | | LAB | | + + + + + -+ | A/G Ratio | 0.7 (L) | 1.0 - 2.4 | EXTERNAL | | | | | | LAB | | + + + + + -+ | Bilirubin | 0.5 | 0.1 - 1.5 mg/dL | EXTERNAL | | | Total | | | LAB | | + + + + + -+ | ALP, | 126 (H) | 35 - 115 U/L | EXTERNAL | | | External | | | LAB | | + + + + + -+ | AST | 32Comment: MODERATE | 10 - 45 U/L | EXTERNAL | | | | HEMOLYSIS | | LAB | | + + + + + -+ | ALT | 25 | 10 - 65 U/L | EXTERNAL | | | | | | LAB | | + + + + + -+ | Estimated | 7 (L)Comment: GFR <60: [...] + + -+ | CK, Total | 209Comment: MODERATE | 55 - 400 U/L | EXTERNAL | | | | HEMOLYSIS | | LAB | | + + + + + -+ | Protime | SPECIMEN CLOTTED, SAMPLE | seconds | EXTERNAL | | | | TO BE REDRAWN | | LAB | | + + + + + -+ | INR | SPECIMEN CLOTTED, SAMPLE | | EXTERNAL | | | | TO BE REDRAWN | | LAB | | + + + + + -+ | aPTT, | SPECIMEN CLOTTED, SAMPLE | 23 - 32 seconds | EXTERNAL | | | Patient | TO BE REDRAWN | | LAB | | + + + + + -+ | CK-MB | 4.3 (H) | 0.5 - 3.6 ng/mL | EXTERNAL | | | | | | LAB | | + + + + + -+ | CK-MB Index | 2.1Comment: CK INDEX | | EXTERNAL | | [...] | + +---------+ + + Troponin I (10/08/2016 2:16 AM PDT) + + + + + [...] | | | | | | ACUTE [place] Testing | | | | | | performed at [facility] | | | | | | [facility];[place], [place] | | | | | | [address] | | | | + + + [...] + +---------+ + + ECG 12 lead (10/08/2016 1:54 AM PDT) + + + + + + | Component | Value | Ref Range | Performed | Pathologist | | | | | At | Signature | + + + + + + | DIAGNOSIS: | Normal sinus | | EXTERNAL | | | | rhythmAbnormal QRS-T | | LAB | | | | angle, consider primary | | | | | | T wave | | | | | | abnormalityProlonged | | | | | | QTAbnormal ECGWhen | | | | | | compared with ECG of | | | | | | 08-SEP-2016 00:03,QRS | | | | | | duration has | | | | | | decreasedNonspecific T | | | | | | wave abnormality now | | | | | | evident in Lateral | | | | | | leadsThis ECG contains | | | | | [...] (500), | | | | | | state editor MuellerVaishnavi | | | | | | (18) on 10/09/2016 | | | | | | 8:53:55 AM | | | | + + + + + + + + | Specimen | + + | | + + + + + | Narrative | Performed At | + + + | Historically converted procedure from [facility] environment | EXTERNAL LAB | + + + + +---------+ + + | Performing | Address | City/State/Zipcode | Phone Number | | Organization | | | | + +---------+ + + | EXTERNAL LAB | | | | + +---------+ + + XR Chest 1 Vw (10/07/2016 12:22 AM PDT) + + | Specimen | [...] Palm - 02/04/2019 10:13 PM PDT This is a non-reportable procedure | | without a radiologist report and isused for image storage only | + + documented in this encounter Visit Diagnoses + + | Diagnosis | + + | Pain Generalized pain | + + | Hyperkalemia Hyperpotassemia | + + | ESRD (end stage renal disease) (HCC) End stage renal disease | + + documented in this encounter
--- OUTSIDE RECORDS SUMMARY | ~2020-03-11 | XMS | Encounter Summary ---
Demographics + + + | Address | [address] | | | [place] [address] | + + + | Home Phone [...] Team Providers + +------+ + | Care Protective Signal Operations Supervisor Name | Role | Phone | + +------+ + PCP | Unavailable | + +------+ + Encounter Details +--------+ + + + + | Date | Type | Department | Care Team | Description | +--------+ + + + + | 04/28/ | Hospital | [facility] | Conversion | Unknown cause of | | 2015 | Encounter | CONVERSION DEP [address] | Transaction, | injury, initial | | | | [address] | Provider Unknown | encounter | | | | [place], [place] | | | | | | [phone] | (Fax) | | | | | | | [...] XR CHEST 1 VIEW | Routin | 04/28/2016 | | Results for this | | | e | 10:00 AM | | procedure are in the | | | | PDT | | results section. | + +--------+ + + + documented in this encounter Results XR Chest 1 Vw (04/28/2016 10:00 AM PDT) + + | Specimen | + + | | + + + + + | Narrative | Performed At | + + + | This is a non-reportable procedure without a radiologist report and | | | is used for image storage only | | + + + + + | Procedure Note | + + | Khalif Palm - 02/05/2019 5:14 PM PDT This is a non-reportable procedure | | without a radiologist report and isused for image storage only | + + documented in this encounter Visit Diagnoses + + | Diagnosis | + + | Unknown cause of injury, initial encounter | + + documented in this encounter"
--- OUTSIDE RECORDS SUMMARY | ~2020-03-11 | XMS | Encounter Summary ---
Demographics + + + | Address | [address] | | | [place] [address] | + + + | Home Phone | | + + + | Preferred Language | Unknown | + + + | Marital Status | Unknown | + + + | Voodoo Affiliation | [id number] | + + + | Race | or | + + + | Ethnic Group | Not or | + + + Author + + + | Author | [facility] | | | and [place] | + + + | Organization | [facility] | | | [...] Team Providers + +------+ + | Care Valve Repairer Name | Role | Phone | + +------+ + PCP | Unavailable | + +------+ + Encounter Details +--------+ + + + + | Date | Type | Department | Care Team | Description | +--------+ + + + + | 03/30/ | Hospital | [facility] | Conversion | | | 2014 | Encounter | [facility] | Transaction, | | | | | CLINIC [address] | Provider Unknown | | | | | [address] [place], [place] | | | | | | [address] | (Fax) | | | | | [phone] | | | +--------+ + + + [...] + + documented as of this encounter Procedure Notes Kay Cunha Unknown - 03/30/2014 7:33 AM PDTFormatting of this note m ight be different from the original. Pre-Procedure Instructions by Dorie Reese RN at 03/30/14732 Author: Dorie Reese RN Service: (none) Author Type: Registered Nurse Filed: 03/30/14733 Date of Service: 03/30/14732 Status: Signed Wash Oil Cooler Operator: Dorie Reese RN (Registered Nurse) People to People will drive patient and home after surgery today per patient and lead nurse. docume nted in this encounter Plan of [...] | TYPE AND SCREEN | Routin | 03/30/2014 | | Results [...] + + documented in this encounter Results Type and Screen (03/30/2014 7:24 AM PDT) + + + [...] | EXTERNAL | | | | [facility] | | LAB | | | | [address];[place] [address] | | | | + + + + + + | Antibody | NEGATIVE | | EXTERNAL | | | Screen | | | LAB | | + + + + + + | Antibody | Testing performed at | | EXTERNAL | | | Screen | [facility] | | LAB | | | | [address]vd;[place] [address] | | | | + + + + + + | BB BAND | [id number] | | EXTERNAL | | | | | | LAB | | + + + + + + | BB BAND | Testing performed at | | EXTERNAL | | | | [facility];[address] [facility] | | LAB | | | | Blvd;[place] [address] | | | | + + + + + + + + | Specimen | + + | Blood specimen | | (specimen) | + + + +---------+ + + | Performing | Address | City/State/Zipcode | Phone Number | | Organization | | | | + +---------+ + + | EXTERNAL LAB | | | | + +---------+ + + PTT (03/30/2014 7:24 AM PDT) + + + + + + | Component | Value | Ref Range | Performed | Pathologist | | | | | At | Signature | + + + + + + | aPTT, | 26Comment: Testing | 23 - 32 seconds | EXTERNAL | | | Patient | performed at [facility];[address] | | LAB | | | | [address];[place], [place] | | | | | | [address] | | | | + + + [...] | | | performed at [facility];[address] | | | | | | [facility];[place], [place] | | | | | | [address] | | | | + + + [...] | | | performed at [facility];[address] | | LAB | | | | [address];[place] | | | | | | [address] | | | | + + + + + + | Non- | 3.83 (L)Comment: Testing | 4.20 - 5.70 | EXTERNAL | | | Red Blood | performed at [facility];[address] | M/uL | LAB | | | Cells | [address];[place] | | | | | Counted | [address] | | | | + + + + + + | Hemoglobin | 11.5 (L)Comment: Testing | 13.2 - 17.0 | EXTERNAL | | | | performed at [facility];[address] | g/dL | LAB | | | | [address];[place] | | | | | | [address] | | | | + + + + + + | Hematocrit, | 35.1 (L)Comment: Testing | 39.0 - 50.0 % | EXTERNAL | | | POC | performed at [facility];[address] | | LAB | | | | [address];[place] | | | | | | [address] | | | | + + + + + + | MCV | 91.8Comment: Testing | 80.0 - 100.0 fl | EXTERNAL | | | | performed at [facility];[address] | | LAB | | | | [address];[place] | | | | | | [address] | | | | + + + + + + | MCH | 30.2Comment: Testing | 27.0 - 34.0 pg | EXTERNAL | | | | performed at [facility];[address] | | LAB | | | | [address];[place] | | | | | | [address] | | | | + + + + + + | MCHC | 32.9Comment: Testing | 32.0 - 35.5 | EXTERNAL | | | | performed at [facility];[address] | g/dL | LAB | | | | [address];[place] | | | | | | [address] | | | | + + + + + + | RDW-CV | 54.3 (H)Comment: Testing | 37 - 53 fl | EXTERNAL | | | | performed at [facility];[address] | | LAB | | | | [address];[place] | | | | | | [address] | | | | + + + + + + | Platelet | 344Comment: Testing | 150 - 400 K/uL | EXTERNAL | | | Count | performed at [facility];[address] | | LAB | | | Plasma | [address];[place] | | | | | | [address] | | | | + + + + + + | MPV | 6.1Comment: Testing | fl | EXTERNAL | | | | performed at [facility];[address] | | LAB | | | | [address];[place] | | | | | | [address] | | | | + + + + + + | Differentia | AUTOMATEDComment: | | EXTERNAL | | | l Type | Testing performed at | | LAB | | | | [facility];[address] | | | | | | [address];[place] [address] | | | | + + + + + + | % Segmented | 51.3Comment: Testing | % | EXTERNAL | | | | performed at [facility];[address] | | LAB | | | Neutrophils | [address];[place] | | | | | | [address] | | | | + + + + + + | % | 28.0Comment: Testing | % | EXTERNAL | | | Lymphocytes | performed at [facility];[address] | | LAB | | | | [address];[place] | | | | | | [address] | | | | + + + + + + | % Monocytes | 11.3Comment: Testing | % | EXTERNAL | | | | performed at [facility];[address] | | LAB | | | | [address];[place] | | | | | | [address] | | | | + + + + + + | % | 8.5Comment: Testing | % | EXTERNAL | | | Eosinophils | performed at [facility];[address] | | LAB | | | | [address];[place] | | | | | | [address] | | | | + + + + + + | % Basophils | 0.9Comment: Testing | % | EXTERNAL | | | | performed at [facility];[address] | | LAB | | | | [address];[place] | | | | | | [address] | | | | + + + + + + | Absolute | 2.8Comment: Testing | 1.9 - 7.4 K/uL | EXTERNAL | | | Segmented | performed at [facility];[address] | | LAB | | | Neutrophils | [address];[place] | | | | | | [address] | | | | + + + + + + | Absolute | 1.5Comment: Testing | 1.0 - 3.9 K/uL | EXTERNAL | | | Lymphocytes | performed at [facility];[address] | | LAB | | | | [address];[place] | | | | | | [address] | | | | + + + + + + | Absolute | 0.6Comment: Testing | 0 - 0.8 K/uL | EXTERNAL | | | Monocytes | performed at [facility];[address] | | LAB | | | | [address];[place] | | | | | | [address] | | | | + + + + + + | Absolute | 0.5Comment: Testing | 0 - 0.5 K/uL | EXTERNAL | | | Eosinophils | performed at [facility];[address] | | LAB | | | | [address];[place] | | | | | | [address] | | | | + + + + + + | Absolute | 0.0Comment: Testing | 0 - 0.1 K/uL | EXTERNAL | | | Basophils | performed at [facility];[address] | | LAB | | | | [address];[place], [place] | | | | | | [address] | | | | + + + [...] | | | performed at [facility];[address] | mmol/L | LAB | | | | [address];[place] | | | | | | [address] | | | | + + + + + + | K | 4.8Comment: Testing | 3.5 - 4.9 | EXTERNAL | | | | performed at [facility];[address] | mmol/L | LAB | | | | [address];[place] | | | | | | [address] | | | | + + + + + + | Cl | 107Comment: Testing | 99 - 109 mmol/L | EXTERNAL | | | | performed at [facility];[address] | | LAB | | | | [address];[place] | | | | | | [address] | | | | + + + + + + | CO2 | 31Comment: Testing | 23 - 32 mmol/L | EXTERNAL | | | | performed at [facility];[address] | | LAB | | | | [address];[place] | | | | | | [address] | | | | + + + + + + | Anion Gap | 7Comment: Testing | 5 - 20 mmol/L | EXTERNAL | | | | performed at [facility];[address] | | LAB | | | | [address];[place] | | | | | | [address] | | | | + + + + + + | Glucose, | 89Comment: Testing | 65 - 99 mg/dL | EXTERNAL | | | Fasting | performed at [facility];[address] | | LAB | | | | [address];[place] | | | | | | [address] | | | | + + + + + + | BUN | 6 (L)Comment: Testing | 8 - 25 mg/dL | EXTERNAL | | | | performed at [facility];[address] | | LAB | | | | [address];[place] | | | | | | [address] | | | | + + + + + + | Creatinine | 4.60 (H)Comment: Testing | 0.70 - 1.30 | EXTERNAL | | | | performed at [facility];[address] | mg/dL | LAB | | | | [address];[place] | | | | | | [address] | | | | + + + + + + | BUN/Creatin | 1Comment: Testing | | EXTERNAL | | | ine Ratio | performed at [facility];[address] | | LAB | | | | [address];[place] | | | | | | [address] | | | | + + + + + + | Calcium | 8.5Comment: Testing | 8.5 - 10.2 | EXTERNAL | | | | performed at [facility];[address] | mg/dL | LAB | | | | [address];[place], [place] | | | | | | [address] | | | | + + + [...] | | | | at [facility];[address] | | | | | | [address];[place] [address] | | | | + + + [...] EXTERNAL LAB | | Testing performed at [facility];[address] [place] [address];[place] [address] MRSA PCR | | | NEGATIVE Testing performed at | | | [address];[place] [address] | | + + + + +---------+ + + | Performing | Address | City/State/Zipcode | Phone Number | | Organization | | | | + +---------+ + + | EXTERNAL LAB | | | | + +---------+ + + documented in this encounter Visit Diagnoses Not on filedocumented in this encounter"
--- OUTSIDE RECORDS SUMMARY | ~2020-03-11 | XMS | Encounter Summary ---
Demographics + + + | Address | [address] | | | [place] [address] | + + + | Home Phone [...] Author + + + | Author | [facility] | | | and [place] | + + + | Organization | [facility] | | | and [...] Team Providers + +------+ + | Care Repairer Sash And Door Name | Role | Phone | + +------+ + PCP | Unavailable | + +------+ + Encounter Details +--------+ + + + + | Date | Type | Department | Care Team | Description | +--------+ + + + + | 07/03/ | Hospital | [facility] | Conversion | | | 2012 | Encounter | [facility] | Transaction, | | | | | CLINIC [address] | Provider Unknown | | | | | [address] [place], [place] | | | | | | [address] | (Fax) | | | | | [phone] | | | +--------+ + + + [...] documented as of this encounter Procedure Notes Conversion Transaction, Provider Unknown - 07/03/2012 2:45 PM PSTFormatting of this note m ight be different from the original. Pre-Procedure Instructions by Shyanne Bleu RN at 07/03/12 7622 Author: Shyanne Blue RN Service: Anesthesiology Author Type: Registered Nurse Filed: 07/03/12 1546 Date of Service: 07/03/121444 Status: Signed Automotive Worker: Shyanne Blue RN (Registered Nurse) Talked to Patients Shyanne , just making sure he had BP rechecked,and to see if Dr Malik office got a hold of them. I informed her of his critical Potassium lab and low BP. I told her I would call the office and give them her cell number. recalled office at [phone], they w ere able to get ahold of Shyanne and give instructions. Shyanne Blue rnc onver quique Transaction, Provider Unknown - 07/03/2012 9:05 AM PST Pre-Pro[place] [address] Author: Shyanne Blue RN Service: Anesthesiology Author Type: Registered Nurse Filed: 07/03/12917 Date of Service: 07/03/12904 Status: Signed Automotive Worker: Shyanne Blue RN (Registered Nurse) Talked with Dr Doherty about pt recent ER visit and labs, pt does not meet mets of 4 mainly due to pain in hips limiting activity, does have chest pain that he was seen in [facility] for on the , pt was told it was muscular pain and discharged. Bp low today,I also talked to dr Meyer about BP. pt given option to go to ER here but chose to go to home clinics for BP rechecks today. Will repeat bmp. And hold Norvasc night before surgery . , Shyanne Blue rnc docume nted in this encounter Plan of [...] EXTERNAL LAB | | Testing performed at [facility];[address] [place] [address];[place] [address] MRSA PCR | | | NEGATIVE Testing performed at | | | [address];[place] [address] | | + + + + +---------+ + + | Performing | Address | City/State/Zipcode | Phone Number | | Organization | | | | + +---------+ + + | EXTERNAL LAB | | | | + +---------+ + + documented in this encounter Visit Diagnoses Not on filedocumented in this encounter"
--- OUTSIDE RECORDS SUMMARY | ~2020-03-11 | XMS | Encounter Summary ---
Demographics + + + | Address | [address] | | | [place] [address] | + + + | Home Phone | | + + + | Preferred Language | Unknown | + + + | Marital Status | Single | + + + | Mu-Ism Affiliation | Unknown | + + + | Race | or | + + + | Ethnic Group | Not or | + + + Author + + + | Author | [facility] | + + + | Organization | [facility] | + + + [...] Team Providers + +------+ + | Care Benefits Officer Name | Role | Phone | + +------+ + | Berenice Hicks | PCP | | + +------+ + Reason for Visit + +--------+ + | Reason | Onset | Comments | | | Date | | + +--------+ + | Pre Transplant | 09/29/ | Intake | | Workup | 2020 | | + +--------+ + Encounter Details +--------+ + + + + | Date | Type | Department | Care Team | Description | +--------+ + + + + | 09/29/ | Telephone | Clinical | Makenna Sheldon, | Pre Transplant | | 2020 | | Transplant Services | RN [address] | Workup (Intake) | | | | [address] | [address] | | | | | [address] [place], | [place], [place] | | | | | [place] [address] | [address] | | | | | [phone] | | | +--------+ + + + [...] this encounter Miscellaneous Notes Telephone Encounter - Tanya Vasquez - 10/13/2019 3:45 PM PDTCalled patient and schedu led their staged evaluation for Saturday, November 10. Informed patient they will get a letter 10-14 days before their appointment with her appointment time, location, map and any paperw ork they may need to fill out. elephone Encounter - Makenna Sheldon RN - 09/30/2019 7:40 PM PDTEnrique Jose Rafael Potter, a 54 y.o. male was referred on 09/30/2019 by Jayy Christianson. CKD stage: ESRD on dialysis [place] disease: Diabetes History updated to include above. Concerns from [facility] intake or referring: none Routed to [facility] to set up initial consult referral appointment. elephone Encounter - Chela Cortes - 0 09/30/2019 1:07 PM PDTDemographic Intake I would now like to ask you a series of questions; they will not affect your candidacy. 1. Are you a [place] Citizen: Yes 2. Are you a resident: N/A a. If no, did you travel to the [place] primarily for organ transplant: N/A 3. [facility] No a. If yes, route to financial management consultant. 4. Have you worked with any other transplant centers: No a. If Yes, Where: 5. Do you live alone: No a. If no, who do you live with (if children, get age): 2- sons 36 & 46 6. What is your Marital Status: a. What is your Partner s name (If applicable): 7. Do you currently work: No 8. 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 What is the highest level of education you have completed: High school/GED 10. Current Height: 5'7'' 11. Current Weight: 182lbs 12. Can you walk 20 minutes without stopping: Yes 13. Do you use oxygen: No 14. Have you had cancer in the last 2 years: No 15. Do you currently use cocaine, methamphetamine, heroin, or other similar drugs: No 16. Do you use any form of tobacco: No 17. What is your preferred spoken language: Maltese 18. What is your preferred written language: Maltese 19. Are you on dialysis: Yes 20. Do you have a Preferred lab: Document in Demographics under Clinical Information 21. Do you have a Preferred Pharmacy: Document in Demographics under Clinical Information elephone Encounter - Chela Rosario - 09/30/2019 10:53 AM PDTTitle: Kidney Transplantation Patient Selection C riteria I. Indications for Kidney Transplantation A. End Stage Renal Disease (dialysis dependent), or B. Estimated GFR ? 20cc/min II. Absolute Contraindications of Kidney Transplantation A. Active infection B. Active malignancy C. Active drug use, alcoholism, untreated or inadequately treated mental illness D. Detectable HIV viral load or CD4 count < 200 cells/ml E. Anatomy that makes transplantation technically impossible F. High probability of rubi-operative mortality G. BMI ? 40 H. Medical noncompliance I. Inappropriate or threatening behavior towards healthcare providers J. Inability to maintain appropriate and timely communication with healthcare providers K. Inadequate financial or social support/stability L. Chronic non healing wounds M. Multiple conditions that increase the risk of kidney transplant or Charlson Co-morbidity Score of ? 8.* III. Conditions that Increase that Risk with Kidney Transplantation A. Significant cardiac disease B. Significant pulmonary disease C. Significant gastrointestinal disease D. Severe peripheral cerebral or vascular disease E. Renal disease with significant potential for recurrence causing kidney graft loss F. History of substance dependence G. BMI ? 35 H. Age greater than 70 years I. Significant cognitive impairment or disorder J. Active tobacco use * Score of ? 8 includes 2 points given for ESRD. documented in this enco unter Plan of Treatment +--------+ + + + + | Date | Type | Specialty | Care Team | Description | +--------+ + + + + | 03/22/ | Appointment | Cardiology | | | 2019 | | | | | +--------+ + + + + | 03/22/ | Appointment | Radiology | Taiwo Marin | | 2019 | | | MD [address] | | | | | | [facility] | | | | | | [place], [place] | | | | | | [address] | | | | | | [phone] | | | | | | | | +--------+ + + + + | 03/22/ | Appointment | Cardiology | | | | 2019 | | | | | +--------+ + + + + | 03/22/ | Appointment | Radiology | Taiwo Marin | | | 2019 | | | MD [address] | | | | | | [address] | | | | | | [place], [place] | | | | | | [address] | | | | | | [phone] | | | | | | | | +--------+ + + + + | 03/23/ | Appointment | Radiology | Taiwo Marin | | | 2019 | | | MD [address] | | | | | | [address] | | | | | | [place], [place] | | | | | | [address] | | | | | | [phone] | | | | | | | | +--------+ + + + + | 03/23/ | Office | Social Work | Lina Rodriguez, | | | 2019 | Visit | | [facility] [address] | | | | | | [address] | | | | | | [place], [place] | | | | | | [address] | | | | | | [phone] | | +--------+ + + + + | 03/24/ | Telephone-S | Nutrition | Debby Salvador, | | | 2019 | manan | | [address] [facility] | | | | | | [facility] | | | | | | [place], [place] | | | | | | [address] | | | | | | [phone] | | | | | | | | +--------+ + + + + documented as of this encounter Results DRUG SCREEN [...] [place] | | | | | | [address] | | | | | | [phone]. | | | | | | com, Mio Jauregui, MD, | | | | | | [...] [facility] | [address] | [place], [place] | | | UNIV PTH - INTFC | | [address] | | + + + + + [...] | | | | | | by [employer],[address] | | | | | | [address], [facility],[place] | | | | | | [address] | | | | | | [phone].[employer]. | | | | | | Mio su MD, | | | | | | Lab. Director | | | | + + + + + + | COTININE | <2 | ng/mL | [facility] | | | | | | REG [...] [facility] | [address] | [place], [place] | | | UNIV PTH - INTFC | | [address] | | + + + + + [...] | + + + + + | [facility] | [address] | [place] [address] | | | SERVICES, CORE | PARK [...] | [facility] | | considered for monitoring terminal block assembler glycemic control in patients with: | LABORATORY [...] | + + + + + | [facility] | [address] | [place] [address] | | | SERVICES, SPECIAL | SALVADOR [...] [facility] | | | NIL | by [facility],[address] | | REG UNIV | | | | [address], [facility],[place] | | PTH - INTFC | | | | [address] | | | | | | [phone]. | | | | | | Mio [...] (http://www.cdc.gov/mmwr | | | | | | /preview/mmwrhtml/tv7590 | | | | | | [email or web address].htm), [...] [facility] | [address] | [place], [place] | | | UNIV PTH - INTFC | | [address] | | + + + + + [...] by | | | | | | [employer],[address] | | | | | | [place] | | | | | | [address] | | | | | | [phone].[facility]. | | | | | | Mio [...] [facility] | [address] | [place], [place] | | | UNIV PTH - INTFC | | [address] | | + + + + + [...] | | | | | | Laboratories,[address] | | | | | | [place] [address] | | | | | | [phone]. | | | | | | Mio [...] [facility] | [address] | [place], [place] | | | UNIV PTH - INTFC | | [address] | | + + + + + [...] + | [facility] | [address] | [place] [address] | | | [place] | | | [...] by | | | | | | [employer],[address] | | | | | | [address], [facility],[place] | | | | | | [address] | | | | | | [phone].[employer]. | | | | | | Mio [...] [facility] | [address] | [place], [place] | | | UNIV PTH - INTFC | | [address] | | + + + + + [...] [facility] | [address] | [place] [address] | | | SERVICES, CORE | PARK [...] not detected. The performance of the | [facility] | | HARP MAKER HIV Combo test, with or without confirmation, [...] | + + + + + | [facility] | [address] | [place] [address] | | | SERVICES, SPECIAL | SALVADOR [...] | + + + + + | [facility] | [address] | [place] [address] | | | SERVICES, CORE | SALVADOR [...] | + + + + + | [facility] | [address] | [place] [address] | | | SERVICES, CORE | PARK [...] [facility] | [address] | [place] [address] | | | SERVICES, CORE | PARK [...] + | [facility] | [address] | [place] [address] | | | [place] | | | [...] + | [facility] | [address] | [place], [place] [address] | | | [place] | | | | + + + [...] | | | | Repeat testing in 10- | | | | | | | [...] | | | | | | [place] | | | | | | [address] | | | | | | [phone].[facility]. | | | | | | Mio [...] [facility] | [address] | [place], [place] | | | UNIV PTH - INTFC | | [address] | | + + + + + [...] by | | | | | | [employer],[address] | | | | | | [address], [facility],[place] | | | | | | [address] | | | | | | [phone].[facility]. | | | | | | Mio [...] [facility] | [address] | [place], [place] | | | UNIV PTH - INTFC | | [address] | | + + + + + [...] [facility] | [address] | [place] [address] | | | SERVICES, ROSAL[place] | [address] | | | + + + + + VINAY KANG ONLY (11/11/2019 2:07 PM PDT) + + + + + + | Component | Value | Ref Range | Performed | Pathologist | | | | | At | Signature | + + + + + + | COLOR(UR) | Yellow | | [facility] | | | | | | LABORATORY | | | | | | UNA, | | | | | | CORE [...] | [facility] | | | GRAVITY | Baroda performed by | | LABORATORY | | [...] [facility] | [address] | [place] [address] | | | SERVICES, CORE | SALVADOR [...] [facility] | [address] | [place] [address] | | | SERVICES, CORE | SALVADOR [...] [facility] | [address] | [place] [address] | | | SERVICES, CORE | PARK [...] | + + + + + | [facility] | [address] | [place] [address] | | | [facility] | [address] | | | + [...] [facility] | [address] | [place] [address] | | | SERVICES, CORE | PARK [...] + + + + + | [facility] | [address] | [place] [address] | | | SERVICES, CORE | PARK [...] [facility] | [address] | [place] [address] | | | SERVICES, CORE | PARK [...] + + + + + | [facility] | [address] | [place] [address] | | | SERVICES, CORE | [address] | | | + + + + + MAGNESIUM, PLASMA (11/11/2019 2:07 PM PDT) + +-------+ + + + | Component | Value | Ref Range | Performed | Pathologist | | | | | At | Signature | + +-------+ + + + | MAGNESIUM,P | 2.6 | 1.6 - 2.6 mg/dL | [facility] | | | LASMA | | | [...] + + + + + | [facility] | [address] | [place] [address] | | | SERVICES, CORE | PARK [...] | | | LABORATORY | | | CYMRO | | | SERVICES, | | | [...] | + + + + + | [facility] | [address] | [place] [address] | | | SERVICES, CORE | SALVADOR [...] + + | [facility] - | [address] | [place] [address] | | | IMMUNOGENETICS/TRANS | [address] [...] + | [facility] - | [address] | [place] [address] | | | IMMUNOGENETICS/TRANS | [address] [...] + + | [facility] - | [address] | [place], [place] | | | IMMUNOGENETICS/TRANS | [address] | | | | [facility] LAB[facility]ATORY | | | | + + + + + LIT HLA-C LOW RES-DERRELL (11/11/2019 2:07 PM PDT) + + | Specimen | + + | Blood - Blood | | (substance) | + + + + + + + | Performing | Address | City/State/Zipcode | Phone Number | | Organization | | | | + + + + + | [facility] - | [address] | [place], [place] | | | IMMUNOGENETICS/TRANS | [address] [...] + + | [facility] - | [address], | [place] [address] | | | IMMUNOGENETICS/TRANS | [address] [...] + | [facility] - | [address] | [place] [address] | | | IMMUNOGENETICS/TRANS | [address] [...] [facility] - | [address] | [place] [address] | | | IMMUNOGENETICS/TRANS | [address] [...] [facility] - | [address] | [place] [address] | | | IMMUNOGENETICS/TRANS | [address] [...] + + | [facility] - | [address] | [place] [address] | | | IMMUNOGENETICS/TRANS | [address] [...]
--- OUTSIDE RECORDS SUMMARY | ~2020-03-11 | XMS | Encounter Summary ---
Demographics + + + | Address | [address] | | | [place] [address] | + + + | Home Phone [...] Author + + + | Author | [facility] | | | and [place] | + + + | Organization | [facility] | | | [...] Providers + +------+ + | Care Sales Research Analyst Name | Role | Phone | + +------+ + PCP | Unavailable | + +------+ + Encounter Details +--------+ + + + + | Date | Type | Department | Care Team | Description | +--------+ + + + + | 10/03/ | Hospital | [facility] | PaulaGaldino ortiz | Adult failure to | | 2012 - | Encounter | [facility] | MD [address] | thrive; PUD (peptic | | | | CARE FLOOR [address] | [address] | ulcer disease); | | 10/15/ | | [address] | [place] [address] | Secondary | | 2012 | | [place], [place] | [phone] | hyperparathyroidism | | | | [address] | | (of renal origin) | | | | [phone] | | ([facility]); Vitamin d | | | | | | deficiency; C. 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 ESRD (end-stage | | | | | | renal disease) | | | | | | ([facility]); HTN | | | | | | (hypertension); | | | | | | Bacteremia; | | | | | | Staphylococcus | | | | | | aureus bacteremia | | | | | | with sepsis ([facility]); | | | | | | Fever; | | | | | | Hypoalbuminemia; End | | | | | | stage renal failure | | | | | | on dialysis ([facility]); | | | | | | Obesity (BMI | | | | | | 30-39.9); | | | | | | Hyponatremia; | | | | | | Malnutrition of | | | | | | moderate degree | | | | | | ([facility]); Weakness | | | | | | generalized; | | | | | | Incomplete RBBB; | | | | | | Anemia of chronic | | | | | | kidney failure; ESRD | | | | | | (end stage renal | | | | | | disease) on dialysis | | | | | | (HCC); Gout; | | | | | | [...] Discharge Summaries by Vikram Chandra MD at 10/15/12 0902 Author: Vikram Chandra MD Service: Hospitalist Author Type: Physician Filed: 10/15/12905 Date of Service: 10/15/12901 Status: Signed Top Precipitator Operator: Vikram Chandra MD (Physician) [facility] Service: Hospitalist Physician Discharge Summary Pt: Carol Potter AGE/SEX: 47 y.o. male ROOM: [address] [place] [address] PCP: [facility] : 1965 Admit date: 10/03/2012 Discharge date and time: 10/15/2012 9:02 AM Admitting Physician: Galdino Oliveros MD Discharge Physician: Vikram Chandra MD Consults: Dr. Franklin Palacio Primary Discharge Diagnoses: Adult failure to thrive [...] 45 %. 3. No vegetation visualized. 4. Gszd-qx-zykbvupu mitral regurgitation is present. 5. There is [...] by Dr. Meyer. This was created using [place] vein and does not contain any graft [...] left hip. i had detail DW Dr. Palacio and he had DW radiologist. According to [...] 70.5 67.3 MONOPCT 10.7 12.4* 12.7* Lab 10/14/12 0420 10/13/120 10/12/1243210/11/12 0425 NA 135 131* 133* -- K [...] 36 GLUCOSE -- -- -- -- Lab 10/15/1242910/14/1241910/13/12 043 MG 2.0 1.9 2.1 Lab 10/10/12 0250 PHART -- PO2ART -- IUQ5BDM -- B4CAPGJO -- BEART 4* Lab 10/10/12 1331 10/10/12 [...] times daily as needed . ergocalciferol (DRISDOL) 14096 UNITS capsule Take 1 capsule by mouth [...] mouth 3 (three) times daily with meals. Johnson s not started taking yet Activity: activity [...] Progress Notes by Ruslan Amezquita PTA at 10/15/121223 Author: Ruslan Amezquita PTA Service: (none) Author Type: Workers' Compensation Claims Supervisor Filed: 10/15/121223 Date of Service: 10/15/121223 Status: Signed Top Precipitator Operator: Ruslan Amezquita PTA (Workers' Compensation Claims Supervisor) 10/15/12 122 PT Last Visit PT Received On 10/15/12 PT Therapy Visit Not available Requires PT Follow Up Unavailable Other Comments Comments receiving HD onver quique Transaction, Provider Unknown - 10/15/2012 11:53 AM PDT Progress Notes by Kelley Toussaint RPH at 10/15/12 9482 Author: Kelley Toussaint RPH Service: (none) Author Type: Pharmacist Filed: 10/15/12 6236 Date of Service: 10/15/121152 Status: Signed Top Precipitator Operator: Kelley Toussaint RPH (Pharmacist) Clinical Pharmacy Note: Vancomycin Monitoring - Day 8 Clinician Dosing: Pharmacy Dosing WBC 6.4 HD today, then discharge per rounding with Dr. Chandra Plan per protocol: Continue with current regimen: Vanco 750 mg IV after each HD, HD today Order trough levels:N/A 10/15/2012 11:51 AM Pharmacist: Kelley Toussaint Sean Willis - 10/15/2012 10:34 AM PDTFormatting of this note might be different from the origi nal. Progress Notes by Sean Solorzano MD at 10/15/12 1034 Author: Sean Solorzano MD Service: Nephrology Author Type: Physician Filed: 10/15/12 1043 Date of Service: 10/15/12 103 Status: Signed Top Precipitator Operator: Sean Solorzano MD (Physician) [facility] Service: NEPHROLOGY Progress Note Carol Potter 47 y.o. [id number] male [facility] Hospital Day: LOS: 12 days SUBJECTIVE [...] --ORTHO MRSA BACTEREMIA VANCO DURING HD AT [facility] NEEDS TO BE FAXED FROM DR SHAWN CHANDLER WITH FLAGYL DOING OK TOLERATING HD WITH [...] EGD; Surgeon: John Singleton MD; Location: [facility] ENDOSCOPY; Se rvice: Gastroenterology; Laterality: N/A; Av fistula placement 05/06/2012 Procedure: AV FISTULA; Surgeon: Oskar Meyer MD; Location: [facility] MAIN OR; Service: Vascul ar; Laterality: Left; Left arm possible right Unlisted procedure arthroscopy shoulder rt , ligaments Knee arthroscopy 07/07/2012 Procedure: KNEE - ARTHROSCOPY; Surgeon: Favio Raza MD; Location: [facility] MAIN OR; S ervice: Orthopedics; Laterality: Right; After 1530 Catheter removal 07/07/2012 Procedure: DIALYSIS CATHETER REMOVAL; Surgeon: Oskar Meyer MD; Location: [facility] [place]IDE [place] OCEDURE; Service: General; Laterality: Right; perm cath Dialysis fistula creation 07/07/2012 Procedure: DIALYSIS CATHETER INSERTION; Surgeon: Oskar Meyer MD; Location: [facility] BEDSIDE PROCEDURE; Service: General; Laterality: Left; temporary dialysis catheter Av fistula repair 07/11/2012 Procedure: AV FISTULA GRAFT REPAIR/REVISION; Surgeon: Oskar Meyer MD; Location: [facility] OR; Service: Vascular; Laterality: Left; Superficialization of brachiobasilic fistula and right IJ perm cath insertion Dialysis fistula creation 07/11/2012 Procedure: DIALYSIS CATHETER INSERTION; Surgeon: Oskar Meyer MD; Location: [facility] MAIN OR; Service: Vascular; Laterality: Left; [...] BIOLOGICAL; 2 STEP KIDSUNEMPLOYED BEFORE WORKED AT [employer] IN [place] NONE ETOH QUIT 15 YEARS AGODRUGS: quit [...] vancomycin 750 mg Intravenous Once vitamin B ufrjmml-A-qqpbg acid 1 tablet Oral Daily Continuous Infusions [...] Results Component Value Date PTHINTACT 255* 04/02/2012 [id number] <12* 04/02/2012 Lab Results Component Value Date [...] 016 Xr Chest 1 View 10/08/2012 CAROL ROMY XR CHEST 1 VIEW 10/08/2012 12:20 PM [...] Name: CAROL POTTER Date of : 1965 [facility] Physician: Beny Valencia MD INDICATIONS endocarditis CONCLUSIONS 1. The left ventricle i s moderately dilated. 2. Overall left ventricular systolic function is mild-moderately impai red with, an EF between 40 - 45 %. 3. No vegetation visualized. 4. Jyip-jp-lhxlroii mitral r egurgitation is present. 5. There [...] Aortic Valve: No vegetation visualized. Mitral Valve: Xnpx-rz-arcpttjp mitral regurgitation is present. Tricuspid Valve: The tricuspid valve appears structurally normal. Trace/Mild (physiologic) regurgitation. Aorta: Ascending aorta, aortic arch and descending thoracic aorta are of normal caliber with no significant atherosclerotic disease. Mass: No m ass visualized. Thrombus: No clot visualized. Pericardium: There is a trivial pericardial ef fusion present. MEASUREMENTS Grader Green Meat: RADHA Authenticated by: Beny Rousseau Report Date/Time: [...] who is dialyzed Saturday and Saturday at [place] dialysis unit via Left upper extremity pr [...] binders for now. 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 And MEGACE Staphylococcus aureus bacteremia with [...] DOSE ALL MEDS PER ESRD D/W DR PRATEEK S/O :PRBC GIVEN DURING HD 08/15/2012 , CONSIDER MEGACE TOLERATING HD WELL WITH UF 3 L TO TOLERANCE . Vancomycin Rx needs to be faxed to HD UNIT BY MATERIAL CREW SUPERVISOR D/W EDUCATED PT ON FLUID RESTRICTION 1.5 L/24 hrs CM:Discharge planning update: CM called to follow-up if [place] had an available bed. Dominick M spoke with Angelique ibrahima male beds available at this time. Pt continued to have SNF plac ement at [facility] in [place] for when medically stable for discharge. Time [...] Author: VANDANA Alvarado Service: (none) Author Type: Ware Carrier Filed: 10/15/12 1634 Date of Service: 10/15/12 1018 Status: Signed Top Precipitator Operator: VANDANA Alvarado (Ware Carrier) Pt is aware that he is dc'ing to [facility] in [place]. Spoke w/ she is not able to get Pt transported back. Pt is on contact precautions and requires two person assist w/transfers . Pt is fall risk will need ambulance transport. All SNF paperwork filled out and faxed to [facility]. They are expecting him, transport scheduled at 1:30PM. Sean Willis T - 10/14/2012 1:49 PM PDTFormatting of this note might be different from the origi nal. Progress Notes by Sean Solorzano MD at 10/14/12 1349 Author: Sean Solorzano MD Service: Nephrology Author Type: Physician Filed: 10/14/12 1532 Date of Service: 10/14/12 1349 Status: Signed Top Precipitator Operator: Sean Solorzano MD (Physician) [facility] Service: NEPHROLOGY Progress Note Carol Potter 47 y.o. [id number] male [facility] Hospital Day: LOS: 11 days SUBJECTIVE [...] --ORTHO MRSA BACTEREMIA VANCO DURING HD AT [facility] NEEDS TO BE FAXED FROM [...] EGD; Surgeon: John Singleton MD; Location: [facility] ENDOSCOPY; Se rvice: Gastroenterology; Laterality: N/A; Av fistula placement 05/06/2012 Procedure: AV FISTULA; Surgeon: Oskar Meyer MD; Location: [facility] MAIN OR; Service: Vascul ar; Laterality: Left; Left arm possible right Unlisted procedure arthroscopy shoulder rt , ligaments Knee arthroscopy 07/07/2012 Procedure: KNEE - ARTHROSCOPY; Surgeon: Favio Raza MD; Location: [facility] MAIN OR; S ervice: Orthopedics; Laterality: Right; After 1530 Catheter removal 07/07/2012 Procedure: DIALYSIS CATHETER REMOVAL; Surgeon: Oskar Meyer MD; Location: [facility] [place] [place]; Service: General; Laterality: Right; perm cath Dialysis fistula creation 07/07/2012 Procedure: DIALYSIS CATHETER INSERTION; Surgeon: Oskar Meyer MD; Location: [facility] BEDSIDE PROCEDURE; Service: General; Laterality: Left; temporary dialysis catheter Av fistula repair 07/11/2012 Procedure: AV FISTULA GRAFT REPAIR/REVISION; Surgeon: Oskar Meyer MD; Location: [facility] OR; Service: Vascular; Laterality: Left; Superficialization of brachiobasilic fistula and right IJ perm cath insertion Dialysis fistula creation 07/11/2012 Procedure: DIALYSIS CATHETER INSERTION; Surgeon: Oskar Meyer MD; Location: [facility] OR; Service: Vascular; Laterality: Left; [...] BIOLOGICAL; 2 STEP KIDSUNEMPLOYED BEFORE WORKED AT [employer] [place] NONE ETOH QUIT 15 YEARS AGODRUGS: quit [...] vancomycin 750 mg Intravenous Once vitamin B zehpbul-Z-pooxt acid 1 tablet Oral Daily Continuous Infusions [...] Results Component Value Date PTHINTACT 255* 04/02/2012 [id number] <12* 04/02/2012 Lab Results Component Value Date [...] 016 Xr Chest 1 View 10/08/2012 CAROL ROMY XR CHEST 1 VIEW 10/08/2012 12:20 PM [...] Name: CAROL POTTER Date of : 1965 Perf [facility] Physician: Beny Valencia MD INDICATIONS endocarditis CONCLUSIONS 1. The left ventricle i s moderately dilated. 2. Overall left ventricular systolic function is mild-moderately impai red with, an EF between 40 - 45 %. 3. No vegetation visualized. 4. Iasa-ru-tecatzci mitral r egurgitation is present. 5. There [...] Aortic Valve: No vegetation visualized. Mitral Valve: Vwrm-je-xsbgbqxl mitral regurgitation is present. Tricuspid Valve: The tricuspid valve appears structurally normal. Trace/Mild (physiologic) regurgitation. Aorta: Ascending aorta, aortic arch and descending thoracic aorta are of normal caliber with no significant atherosclerotic disease. Mass: No m ass visualized. Thrombus: No clot visualized. Pericardium: There is a trivial pericardial ef fusion present. MEASUREMENTS Grader Green Meat: RADHA Authenticated by: Beny Rousseau Report Date/Time: [...] who is dialyzed Saturday and Saturday at [place] dialysis unit via Left upper extremity pr [...] binders for now. 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 Staphylococcus aureus bacteremia with sepsis: getting [...] to be faxed to HD UNIT BY MATERIAL CREW SUPERVISOR D/W EDUCATED PT ON FLUID RESTRICTION 1.5 L/24 hrs Time spend over 25 minutes of time spent evaluating the patient, reviewing the data, formul ating a plan and discussion with patient and hospitalist team, more than half of the time sp ent in counseling and coordination of care. CM:Discharge planning update: CM called to follow-up if [place] had an available bed. Dominick Willoughby spoke with ibrahima Merino male beds available at this time. Pt continued to have SNF plac ement at [facility] in [place] for when medically stable for discharge. SEAN SOLORZANO MD 10/14/2012 onversio n Transaction, Provider Unknown - 10/14/2012 1:29 PM PDTFormatting of this note might be di fferent from the original. Progress Notes by Macho Abraham MS at 10/14/12 1329 Author: Macho Abraham MS Service: (none) Author Type: Ware Carrier Filed: 10/14/12 8239 Date of Service: 10/14/12 1329 Status: Addendum Top Precipitator Operator: Macho Abraham MS (Ware Carrier) Related Notes: Original Note by Macho Abraham MS (Ware Carrier) filed at 10/14/12 1340 CM called Goevanny ([facility] [phone]) to update on discharge status and faxed updated ID i nformation (vanco with HD) Cm also called Ophelia Tong the [facility] RN for marty [phone] and let her know that transportation (they coordinate dialysis [facility] [place]) will be needed. RADHA also spoke with pt's spouse who is in the room w ith pt and encouraged her to call her daughter to make arrangements for her to get back to [facility] on Saturday if pt is discharged. RADHA spoke with RN who reports that pt may need ambula nce transportation. Awaiting d/c orders. onver quique Transaction, Provider Unknown - 10/14/2012 10:51 AM PDT Progress Notes by Ruslan Amezquita PTA at 10/14/12 1051 Author: Ruslan Amezquita PTA Service: (none) Author Type: Workers' Compensation Claims Supervisor Filed: 10/14/12 1051 Date of Service: 10/14/12 1051 Status: Signed Top Precipitator Operator: Ruslan Amezquita PTA (Workers' Compensation Claims Supervisor) 10/14/12 1050 PT Last Visit PT Received [...] from the malik garza Progress Notes by Trevor Escobar DO at 10/14/12919 Author: Trevor Escobar DO Service: (none) Author Type: Physician Filed: 10/14/1237 Date of Service: 10/14/12919 Status: Signed Top Precipitator Operator: Trevor Escobar DO (Physician) [facility] Service: Infectious Disease Progress Note Hospital [...] vancomycin 750 mg Intravenous Once vitamin B zvqkzhe-X-mgzhe acid 1 tablet Oral Daily Continuous Infusions [...] Status: Full Code TREVOR ESCOBAR DO 10/14/2012 Lluvia, Vikram Alarcon MD - 2012 8:43 AM PDT Progress Notes by Vikram Chandra MD at 10/14/12 0843 Author: Vikram Chandra MD Service: Hospitalist Author Type: Physician Filed: 10/14/12 0852 Date of Service: 10/14/12 0843 Status: Addendum Top Precipitator Operator: Vikram Chandra MD (Physician) Related Notes: Original Note by Vikram Chandra MD (Physician) filed at 10/14/12 0851 [facility] Service: Hospitalist Progress Note Pt: Carol Potter AGE/SEX: 47 y.o. male ROOM: [address] [place] [address] : 1965 PCP: [facility] ADMIT DATE: 10/03/2012 TODAY'S DATE: 10/14/2012 [...] by Dr. Meyer. This was created using [place] vein and does not contain any graft [...] moves left leg No chest pain, SOB, JOHNSON. No cough on recumbency. Had no orthopnea [...] vancomycin 750 mg Intravenous Once vitamin B dgjlhfe-V-ozeoh acid 1 tablet Oral Daily Continuous Infusions [...] MONOPCT 12.4* 12.7* 13.3* Lab 10/14/12 0420 10/13/120 10/12/1243210/11/12 042 NA 135 131* 133* -- K 3.6 [...] Date PHOS 2.6 10/14/2012 Lab 10/14/12 0420 10/13/1242910/12/12 043 MG 1.9 2.1 2.0 Lab 10/10/12 0250 PHART -- PO2ART -- FKC4JBJ -- C9VINOJQ -- BEART 4* Lab 10/10/12 1331 10/10/12 [...] left hip. i had detail DW Dr. Palacio and he had DW radiologist. Accordin g [...] Progress Notes by Kristina Zendejas RPH at 10/14/12834 Author: Kristina Zendejas RPH Service: (none) Author Type: Pharmacist Filed: 10/14/12834 Date of Service: 10/14/12834 Status: Signed Top Precipitator Operator: Kristina Zendejas RPH (Pharmacist) Vancomycin day 7--Saturday no dialysis, no dose onver quique Transaction, Provider Unknown - 10/13/2012 12:26 PM PDT Progress Notes by Ruslan Amezquita PTA at 10/13/12 1226 Author: Ruslan Amezquita PTA Service: (none) Author Type: Workers' Compensation Claims Supervisor Filed: 10/13/12 1226 Date of Service: 10/13/12 1226 Status: Signed Top Precipitator Operator: Ruslan Amezquita PTA (Workers' Compensation Claims Supervisor) 10/13/12 1226 PT Last Visit PT Received On 10/13/12 PT Therapy Visit Not available Requires PT Follow Up Unavailable Other Comments Comments receiving HD onver quique Transaction, Provider Unknown - 10/13/2012 11:31 AM PDT Progress Notes by Kristina Zendejas RPH at 10/13/12 1131 Author: Kristina Zendejas RPH Service: (none) Author Type: Pharmacist Filed: 10/13/12 1131 Date of Service: 10/13/12 1131 Status: Signed Top Precipitator Operator: Kristina Zendejas RPH (Pharmacist) Vancomycin Day 6 [facility]ialysis [facility] does for today. Kristina Zendejas [place] ean Solorzano T - 10/13/2012 10:58 AM PDTFormatting of this note might be different from the origi nal. Progress Notes by Sean Solorzano MD at 10/13/12 1058 Author: Sean Solorzano MD Service: Nephrology Author Type: Physician Filed: 10/13/12 1840 Date of Service: 10/13/12 1058 Status: Signed Top Precipitator Operator: Sean Solorzano MD (Physician) [facility] Service: NEPHROLOGY Progress Note Carol Potter 47 y.o. [id number] male [facility] Hospital Day: LOS: 10 days SUBJECTIVE [...] EGD; Surgeon: John Singleton MD; Location: [facility] ENDOSCOPY; Se rvice: Gastroenterology; Laterality: N/A; Av fistula placement 05/06/2012 Procedure: AV FISTULA; Surgeon: Oskar Meyer MD; Location: [facility] MAIN OR; Service: Vascul ar; Laterality: Left; Left arm possible right Unlisted procedure arthroscopy shoulder rt , ligaments Knee arthroscopy 07/07/2012 Procedure: KNEE - ARTHROSCOPY; Surgeon: Favio Raza MD; Location: [facility] MAIN OR; S ervice: Orthopedics; Laterality: Right; After 1530 Catheter removal 07/07/2012 Procedure: DIALYSIS CATHETER REMOVAL; Surgeon: Oskar Meyer MD; Location: [facility] [place] [place]; Service: General; Laterality: Right; perm cath Dialysis fistula creation 07/07/2012 Procedure: DIALYSIS CATHETER INSERTION; Surgeon: Oskar Meyer MD; Location: [facility] BEDSIDE PROCEDURE; Service: General; Laterality: Left; temporary dialysis catheter Av fistula repair 07/11/2012 Procedure: AV FISTULA GRAFT REPAIR/REVISION; Surgeon: Oskar Meyer MD; Location: [facility] OR; Service: Vascular; Laterality: Left; Superficialization of brachiobasilic fistula and right IJ perm cath insertion Dialysis fistula creation 07/11/2012 Procedure: DIALYSIS CATHETER INSERTION; Surgeon: Oskar Meyer MD; Location: [facility] MAIN OR; Service: Vascular; Laterality: Left; [...] BIOLOGICAL; 2 STEP KIDSUNEMPLOYED BEFORE WORKED AT [employer] IN [place] NONE ETOH QUIT 15 YEARS AGODRUGS: quit [...] Oral BID sevelamer 800 mg Oral TID sodium bicarbonate buffer 5 mL Infiltration Once sodium chloride 250 mL Intravenous Once vancomycin 750 mg Intravenous See Admin Instructions vancomycin 750 mg Intravenous Once vitamin B cxgocza-N-abkng acid 1 tablet Oral Daily Continuous Infusions [...] Results Component Value Date PTHINTACT 255* 04/02/2012 [id number] <12* 04/02/2012 Lab Results Component Value Date [...] Name: CAROL POTTER Date of : 1965 [facility] Physician: Beny Valencia MD INDICATIONS endocarditis CONCLUSIONS 1. The left ventricle i s moderately dilated. 2. Overall left ventricular systolic function is mild-moderately impai red with, an EF between 40 - 45 %. 3. No vegetation visualized. 4. Mbpr-uy-kqmjyijk mitral r egurgitation is present. 5. There [...] Aortic Valve: No vegetation visualized. Mitral Valve: Qhya-ij-ardnpxsq mitral regurgitation is present. Tricuspid Valve: The tricuspid valve appears structurally normal. Trace/Mild (physiologic) regurgitation. Aorta: Ascending aorta, aortic arch and descending thoracic aorta are of normal caliber with no significant atherosclerotic disease. Mass: No m ass visualized. Thrombus: No clot visualized. Pericardium: There is a trivial pericardial ef fusion present. MEASUREMENTS Grader Green Meat: RADHA Authenticated by: Beny Rousseau Report Date/Time: [...] who is dialyzed Saturday and Saturday at [place] dialysis unit via Left upper extremity pr [...] binders for now. 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 Staphylococcus aureus bacteremia with sepsis: getting [...] planning update: CM called to follow-up if [place] had an available bed. Dominick Willoughby spoke with ibrahima Merino male beds available at this time. Pt continued to have SNF plac ement at [facility] in [place] for when medically stable for discharge. SEAN SOLORZANO MD 10/13/2012 onversio n Transaction, Provider Unknown - 10/13/2012 9:24 AM PDTFormatting of this note might be di fferent from the original. Progress Notes by Macho Abraham MS at 10/13/12 0924 Author: Macho Abraham MS Service: (none) Author Type: Ware Carrier Filed: 10/13/12929 Date of Service: 10/13/12923 Status: Addendum Top Precipitator Operator: Macho Abraham MS (Ware Carrier) Related Notes: Original Note by Macho Abraham MS (Ware Carrier) filed at 10/13/12924 Discharge planning update: CM called to follow-up if [place] had an available bed. CM s poke with Rhondi, provate male beds available at this time. Pt continued to have SNF placeme nt at [facility] when medically stable for discharge. Trevor Lockett - 10/13/2012 9:20 AM PDTFormatting of this note might be different from the malik garza Progress Notes by Trevor Escobar DO at 10/13/12919 Author: Trevor Escobar DO Service: (none) Author Type: Physician Filed: 10/13/12924 Date of Service: 10/13/12919 Status: Signed Top Precipitator Operator: Trevor Escobar DO (Physician) [facility] Service: Infectious Disease Progress Note Hospital [...] vancomycin 750 mg Intravenous Once vitamin B getsuzt-H-pvfyz acid 1 tablet Oral Daily Continuous Infusions [...] MD Service: Hospitalist Author Type: Physician Filed: 10/13/12918 Date of Service: 10/13/12910 Status: Addendum Top Precipitator Operator: Vikram Chandra MD (Physician) Related Notes: Original Note by Vikram Chandra MD (Physician) filed at 10/13/12917 [facility] Service: Hospitalist Progress Note Pt: Carol Potter AGE/SEX: 47 y.o. male ROOM: [id number]/[id number] : 1965 [facility] [facility] ADMIT DATE: 10/03/2012 TODAY'S DATE: 10/13/2012 [...] by Dr. Meyer. This was created using [place] vein and does not contain any graft [...] e but better. No chest pain, SOB, JOHNSON. No cough on recumbency. Had no orthopnea or PND. No A bdominal pain, N/V or fever. Still feeling tired and fatigued. No dizziness or lightheadedne ss. Scheduled Medications: carvedilol 3.125 mg Oral BID cholecalciferol 2,000 Units Oral Daily citalopram 20 [...] Oral BID sevelamer 800 mg Oral TID sodium bicarbonate buffer 5 mL Infiltration Once sodium chloride 250 mL Intravenous Once vancomycin 750 mg Intravenous See Admin Instructions vancomycin 750 mg Intravenous Once vitamin B usbpbqu-K-azikh acid 1 tablet Oral Daily Continuous Infusions [...] - 84 18 95 % - - 10/12/12 2327 - - - 70 18 94 % [...] Behavior is normal. Judgment normal. LABS: Lab 10/13/12 0430 10/12/1243210/11/12424 WBC 5.6 5.3 6.2 HGB 8.0* 7.6* 7.9* HCT 25.1* 23.8* 24.6* PLT 335 352 351 NEUTOPHILPCT 67.3 69.9 79.4* MONOPCT 12.7* 13.3* 10.7 Lab 10/13/12 0430 10/12/1243210/11/12424 NA 131* 133* 135 K 3.8 3.5 [...] Date PHOS 3.3 10/13/2012 Lab 10/13/12 0430 10/12/12 0433 10/11/12 0425 MG 2.1 2.0 1.9 Lab 10/10/12 0250 PHART -- PO2ART -- RUB9EOF -- [id number] -- BEART 4* Lab 10/10/12 1331 10/10/12 [...] Will continue vanco for now. I CRISELDA Palacio to see him Adult failure to thrive: [...] Will get blood transfusion during HD as I CRISELDA CHANDRA MD, FACP 10/13/2012 9:11 AM Sean Willis - 09/23 1:33 PM PDT Progress Notes by Sean Solorzano MD at 10/12/12 5907 Author: Sean Solorzano MD Service: Nephrology Author Type: Physician Filed: 10/12/12 9315 Date of Service: 10/12/12 Status: Signed Top Precipitator Operator: Sean Solorzano MD (Physician) [facility] Service: NEPHROLOGY Progress Note Carol Potter 47 y.o. [id number] male [facility] Hospital Day: LOS: 9 days SUBJECTIVE [...] EGD; Surgeon: John Singleton MD; Location: [facility] ENDOSCOPY; Se rvice: Gastroenterology; Laterality: N/A; Av fistula placement 05/06/2012 Procedure: AV FISTULA; Surgeon: Oskar Meyer MD; Location: [facility] OR; Service: Vascul ar; Laterality: Left; Left arm possible right Unlisted procedure arthroscopy shoulder rt , ligaments Knee arthroscopy 07/07/2012 Procedure: KNEE - ARTHROSCOPY; Surgeon: Favio Raza MD; Location: [facility] MAIN OR; ervice: Orthopedics; Laterality: Right; After 1530 Catheter removal 07/07/2012 Procedure: DIALYSIS CATHETER REMOVAL; Surgeon: Oskar Meyer MD; Location: [facility] BEDSIDE [place] OCEDURE; Service: General; Laterality: Right; perm cath Dialysis fistula creation 07/07/2012 Procedure: DIALYSIS CATHETER INSERTION; Surgeon: Oskar Meyer MD; Location: [facility] BEDSIDE PROCEDURE; Service: General; Laterality: Left; temporary dialysis catheter Av fistula repair 07/11/2012 Procedure: AV FISTULA GRAFT REPAIR/REVISION; Surgeon: Oskar Meyer MD; Location: [facility] OR; Service: Vascular; Laterality: Left; Superficialization of brachiobasilic fistula and right IJ perm cath insertion Dialysis fistula creation 07/11/2012 Procedure: DIALYSIS CATHETER INSERTION; Surgeon: Oskar Meyer MD; Location: [facility] MAIN OR; Service: Vascular; Laterality: Left; [...] BIOLOGICAL; 2 STEP KIDSUNEMPLOYED BEFORE WORKED AT [employer] IN [place] NONE ETOH QUIT 15 YEARS AGODRUGS: quit [...] mg Intravenous See Admin Instructions vitamin B hecgktg-B-wqkub acid 1 tablet Oral Daily Continuous Infusions [...] Results Component Value Date PTHINTACT 255* 04/02/2012 [id number] <12* 04/02/2012 Lab Results Component Value Date [...] Name: CAROL POTTER Date of : 1965 [facility] Physician: Beny Valencia MD INDICATIONS endocarditis CONCLUSIONS 1. The left ventricle i s moderately dilated. 2. Overall left ventricular systolic function is mild-moderately impai red with, an EF between 40 - 45 %. 3. No vegetation visualized. 4. Cowi-bg-awfnpxwj mitral r egurgitation is present. 5. There [...] Aortic Valve: No vegetation visualized. Mitral Valve: Qstt-th-ytgndxur mitral regurgitation is present. Tricuspid Valve: The tricuspid valve appears structurally normal. Trace/Mild (physiologic) regurgitation. Aorta: Ascending aorta, aortic arch and descending thoracic aorta are of normal caliber with no significant atherosclerotic disease. Mass: No m ass visualized. Thrombus: No clot visualized. Pericardium: There is a trivial pericardial ef fusion present. MEASUREMENTS Grader Green Meat: RADHA Authenticated by: Beny Rousseau Report Date/Time: [...] who is dialyzed Saturday and Saturday at [facility] via Left upper extremity pr [...] binders for now. 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 Staphylococcus aureus bacteremia with sepsis: getting [...] coordination of care. SEAN SOLORZANO MD 10/12/2012 Lluvia, Justine Alarcon MD - 10/12/2012 10:36 AM PDTFormatting of this note might be different from the origin al. Progress Notes by Vikram Chandra MD at 10/12/12 1036 Author: Vikram Chandra MD Service: Hospitalist Author Type: Physician Filed: 10/12/12 1207 Date of Service: 10/12/12 1036 Status: Addendum Top Precipitator Operator: Vikram Chandra MD (Physician) Related Notes: Original Note by Vikram Chandra MD (Physician) filed at 10/12/12 1146 [facility] Service: Hospitalist Progress Note Pt: Carol Potter AGE/SEX: 47 y.o. male ROOM: 6605/[id number] : 1965 PCP: [facility] ADMIT DATE: 10/03/2012 TODAY'S DATE: 10/12/2012 [...] by Dr. Meyer. This was created using [place] vein and does not contain any graft [...] but bett er. No chest pain, SOB, JOHNSON. No cough on recumbency. Had no orthopnea [...] mg Intravenous See Admin Instructions vitamin B tptcwmw-H-qddev acid 1 tablet Oral Daily Continuous Infusions [...] Behavior is normal. Judgment normal. LABS: Lab 10/12/1243210/11/1242410/10/123 WBC 5.3 6.2 8.5 HGB 7.6* 7.9* 8.2* HCT 23.8* 24.6* 25.6* PLT 352 351 368 NEUTOPHILPCT 69.9 79.4* 90.3* MONOPCT 13.3* 10.7 6.0 Lab 10/12/1243210/11/125 10/10/12 0443 NA 133* 135 132* K [...] Lab 10/10/12 0250 PHART -- PO2ART -- DFM7OQF -- I4YGZZXY -- BEART 4* Lab 10/10/12 1331 10/10/12 [...] recurrences are not related. I DW Dr. Palacio and wrote for Consult. H e will see him and recommended US guided Needle asp iration. I DW and he will talk to Dr. Palacio for this as well. Adult failure to [...] VIKRAM CHANDRA MD, FACP 10/12/2012 10:36 AM oTrevor herman - 2012 9:30 AM PDT Progress Notes by Trevor Escobar DO at 10/12/12929 Author: Trevor Escobar DO Service: (none) Author Type: Physician Filed: 10/12/12939 Date of Service: 10/12/12929 Status: Signed Top Precipitator Operator: Trevor Escobar DO (Physician) [facility] Service: Infectious Disease Progress Note Hospital [...] mg Intravenous See Admin Instructions vitamin B jocnwdd-H-endxt acid 1 tablet Oral Daily DISCONTD: amlodipine [...] 10/12/12622 Date of Service: 10/12/12622 Status: Signed Top Precipitator Operator: Yasmin Alberts RPH (Pharmacist) Day 5 Vanco tx No HD today-no Vanco dose to be admin YASMIN ALBERTS 10/12/2012 6:23 AM Sean Willis - 10/11/2012 2:58 PM PDTFormatting of this note might be different from the origi nal. Progress Notes by Sean Solorzano MD at 10/11/12 0420 Author: Sean Solorzano MD Service: Nephrology Author Type: Physician Filed: 10/11/12 1511 Date of Service: 10/11/12 4643 Status: Signed Top Precipitator Operator: Sean Solorzano MD (Physician) [facility] Service: NEPHROLOGY Progress Note Carol Potter 47 y.o. [id number] male [facility] Hospital Day: LOS: 8 days SUBJECTIVE Patient seen and examined. ADMITTED WITH Adult failure to thrive Carol Potter is a 47 y.o. male who is being followed for ESRD management. He was admitted with C. Difficile colitis and failure to thrive. Hospital course 10/06/12 HD uncomplicated. 10/07/12 Febrile. 10/08/12 Blood culture positive. Given Vancomycin and Fortaz post HD 4/18/13 Continues to be febrile. Blood cultures positive [...] EGD; Surgeon: John Singleton MD; Location: [facility] ENDOSCOPY; Se rvice: Gastroenterology; Laterality: N/A; Av fistula placement 05/06/2012 Procedure: AV FISTULA; Surgeon: Oskar Meyer MD; Location: [facility] MAIN OR; Service: Vascul ar; Laterality: Left; Left arm possible right Unlisted procedure arthroscopy shoulder rt , ligaments Knee arthroscopy 07/07/2012 Procedure: KNEE - ARTHROSCOPY; Surgeon: Favio Raza MD; Location: [facility] MAIN OR; S ervice: Orthopedics; Laterality: Right; After 1530 Catheter removal 07/07/2012 Procedure: DIALYSIS CATHETER REMOVAL; Surgeon: Oskar Meyer MD; Location: [facility] BEDSIDE [place] OCEDURE; Service: General; Laterality: Right; perm cath Dialysis fistula creation 07/07/2012 Procedure: DIALYSIS CATHETER INSERTION; Surgeon: Oskar Meyer MD; Location: [facility] BEDSIDE PROCEDURE; Service: General; Laterality: Left; temporary dialysis catheter Av fistula repair 07/11/2012 Procedure: AV FISTULA GRAFT REPAIR/REVISION; Surgeon: Oskar Meyer MD; Location: [facility] OR; Service: Vascular; Laterality: Left; Superficialization of brachiobasilic fistula and right IJ perm cath insertion Dialysis fistula creation 07/11/2012 Procedure: DIALYSIS CATHETER INSERTION; Surgeon: Oskar Meyer MD; Location: [facility] MAIN OR; Service: Vascular; Laterality: Left; [...] BIOLOGICAL; 2 STEP KIDSUNEMPLOYED BEFORE WORKED AT [employer] IN [place] NONE ETOH QUIT 15 YEARS AGODRUGS: quit [...] Oral BID sevelamer 800 mg Oral TID sodium chloride 250 mL Intravenous Once vancomycin 750 mg Intravenous See Admin Instructions vancomycin 750 mg Intravenous Once vitamin B ojitfbs-E-uwevx acid 1 tablet Oral Daily DISCONTD: amlodipine [...] Results Component Value Date PTHINTACT 255* 04/02/2012 [id number] <12* 04/02/2012 Lab Results Component Value Date [...] Name: CAROL POTTER Date of : 1965 [facility] Physician: Beny Valencia MD INDICATIONS endocarditis CONCLUSIONS 1. The left ventricle i s moderately dilated. 2. Overall left ventricular systolic function is mild-moderately impai red with, an EF between 40 - 45 %. 3. No vegetation visualized. 4. Cflh-vv-nhsekest mitral r egurgitation is present. 5. There [...] Aortic Valve: No vegetation visualized. Mitral Valve: Ljda-jj-qfwotfft mitral regurgitation is present. Tricuspid Valve: The tricuspid valve appears structurally normal. Trace/Mild (physiologic) regurgitation. Aorta: Ascending aorta, aortic arch and descending thoracic aorta are of normal caliber with no significant atherosclerotic disease. Mass: No m ass visualized. Thrombus: No clot visualized. Pericardium: There is a trivial pericardial ef fusion present. MEASUREMENTS Grader Green Meat: RADHA Authenticated by: Beny Rousseau Report Date/Time: [...] who is dialyzed Saturday and Saturday at [facility] via Left upper extremity pr [...] binders for now. 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 Staphylococcus aureus bacteremia with sepsis: getting Bone scan. The patient has had 4 episodes of staph aureus bacteremia in the past 6 months Transesophageal echocardiogram does not show evidence of endocarditis, He does have a left lower lobe pneumonia at this time His left hip remains painful. Previous MRI in [facility] had shown myositis about the hip but [...] - 45 %. SEAN SOLORZANO MD 10/11/2012 onversio n Transaction, Provider Unknown - 10/11/2012 11:09 AM PDTFormatting of this note might be di fferent from the original. Progress Notes by Yasmin Alberts RPH at 10/11/121108 Author: Yasmin Alberts RPH Service: (none) Author Type: Pharmacist Filed: 10/11/121108 Date of Service: 10/11/121108 Status: Signed Top Precipitator Operator: Yasmin Alberts RPH (Pharmacist) Day 4 Vanco tx No dose Vanco today-no HD YASMIN ALBERTS 10/11/2012 11:09 AM revor Escobar - 10/11/2012 9:25 AM PDTFormatting of this note might be different from the origina l. Progress Notes by Trevor Escobar DO at 10/11/12924 Author: Trevor Escobar DO Service: (none) Author Type: Physician Filed: 10/11/12 1005 Date of Service: 10/11/12924 Status: Signed Top Precipitator Operator: Trevor Escobar DO (Physician) [facility] Service: Infectious Disease Progress Note Hospital [...] vancomycin 750 mg Intravenous Once vitamin B gxpyhgr-S-rvswz acid 1 tablet Oral Daily DISCONTD: meropenem [...] Progress Notes by Vikram Chandra MD at 10/11/12920 Author: Vikram Chandra MD Service: Hospitalist Author Type: Physician Filed: 10/11/12937 Date of Service: 10/11/12920 Status: Signed Top Precipitator Operator: Vikram Chandra MD (Physician) [facility] Service: Hospitalist Progress Note Pt: Carol Potter AGE/SEX: 47 y.o. male ROOM: 6605/[id number] : 1965 PCP: [facility] ADMIT DATE: 10/03/2012 TODAY'S DATE: 10/11/2012 [...] by Dr. Meyer. This was created using [place] vein and does not contain any graft material. SUBJECTIVE: Patient seen and examine.overnight event noted with low BP but asymptomatic. CO left hip pa in still there. No chest pain, SOB, JOHNSON. No cough on recumbency. Had no orthopnea [...] vancomycin 750 mg Intravenous Once vitamin B divepip-B-dcnyj acid 1 tablet Oral Daily DISCONTD: meropenem [...] C) Oral 80 17 95 % - 10/10/122146 - - - 78 16 - - [...] Behavior is normal. Judgment normal. LABS: Lab 10/11/12 0425 10/10/1244210/10/12 0120 WBC 6.2 8.5 7.6 HGB 7.9* 8.2* 9.2* HCT 24.6* 25.6* 29.0* PLT 351 368 423* NEUTOPHILPCT 79.4* 90.3* 85.8* MONOPCT 10.7 6.0 6.7 Lab 10/11/12 0425 10/10/12 04410/10/12 0120 NA 135 132* 134* K 3.4* [...] Lab 10/10/12 0250 PHART -- PO2ART -- KRN3AEK -- C4PZNXOY -- BEART 4* Lab 10/10/12 1331 10/10/12 [...] Progress Notes by Sean Solorzano MD at 10/10/122302 Author: Sean Solorzano MD Service: Nephrology Author Type: Physician Filed: 10/10/12 1442 Date of Service: 10/10/122302 Status: Signed Top Precipitator Operator: Sean Solorzano MD (Physician) [facility] Service: NEPHROLOGY Progress Note Carol Potter 47 y.o. [id number] male [facility] Hospital Day: LOS: 7 days SUBJECTIVE [...] EGD; Surgeon: John Singleton MD; Location: [facility] ENDOSCOPY; Se rvice: Gastroenterology; Laterality: N/A; Av fistula placement 05/06/2012 Procedure: AV FISTULA; Surgeon: Oskar Meyer MD; Location: [facility] MAIN OR; Service: Vascul ar; Laterality: Left; Left arm possible right Unlisted procedure arthroscopy shoulder rt , ligaments Knee arthroscopy 07/07/2012 Procedure: KNEE - ARTHROSCOPY; Surgeon: Favio Raza MD; Location: [facility] MAIN OR; Milton murillo: Orthopedics; Laterality: Right; After 1530 Catheter removal 07/07/2012 Procedure: DIALYSIS CATHETER REMOVAL; Surgeon: Oskar Meyer MD; Location: [facility] BEDSIDE [place] OCEDURE; Service: General; Laterality: Right; perm cath Dialysis fistula creation 07/07/2012 Procedure: DIALYSIS CATHETER INSERTION; Surgeon: Oskar Meyer MD; Location: [facility] BEDSIDE PROCEDURE; Service: General; Laterality: Left; temporary dialysis catheter Av fistula repair 07/11/2012 Procedure: AV FISTULA GRAFT REPAIR/REVISION; Surgeon: Oskar Meyer MD; [facility]; Service: Vascular; Laterality: Left; Superficialization of brachiobasilic fistula and right IJ perm cath insertion Dialysis fistula creation 07/11/2012 Procedure: DIALYSIS CATHETER INSERTION; Surgeon: Oskar Meyer MD; Location: [facility] MAIN OR; Service: Vascular; Laterality: Left; [...] BIOLOGICAL; 2 STEP KIDSUNEMPLOYED BEFORE WORKED AT [employer] IN [place] NONE ETOH QUIT 15 YEARS AGODRUGS: quit [...] vancomycin 750 mg Intravenous Once vitamin B ioljert-S-afniq acid 1 tablet Oral Daily DISCONTD: meropenem [...] Results Component Value Date PTHINTACT 255* 04/02/2012 [id number] <12* 04/02/2012 Lab Results Component Value Date [...] Name: CAROL POTTER Date of : 1965 [facility] Physician: Beny Valencia MD INDICATIONS endocarditis CONCLUSIONS 1. The left ventricle i s moderately dilated. 2. Overall left ventricular systolic function is mild-moderately impai red with, an EF between 40 - 45 %. 3. No vegetation visualized. 4. Zidz-td-lbbdwvfx mitral r egurgitation is present. 5. There [...] Aortic Valve: No vegetation visualized. Mitral Valve: Rtur-yl-fqrsgpyd mitral regurgitation is present. Tricuspid Valve: The tricuspid valve appears structurally normal. Trace/Mild (physiologic) regurgitation. Aorta: Ascending aorta, aortic arch and descending thoracic aorta are of normal caliber with no significant atherosclerotic disease. Mass: No m ass visualized. Thrombus: No clot visualized. Pericardium: There is a trivial pericardial ef fusion present. MEASUREMENTS Grader Green Meat: RADHA Authenticated by: Beny Rousseau Report Date/Time: [...] who is dialyzed Saturday and Saturday at [facility] via Left upper extremity pr [...] binders for now. 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 C diff colitis: He does not [...] Progress Notes by Khanh Rangel MD at 10/10/12 4053 Author: Khanh Rangel MD Service: (none) Author Type: Physician Filed: 10/10/12 2967 Date of Service: 10/10/12 0076 Status: Signed Top Precipitator Operator: Khanh Rangel MD (Physician) [facility] Service: Hospitalist Progress Note Hospital Day: [...] vancomycin 750 mg Intravenous Once vitamin B hhtsbxs-F-hpqsb acid 1 tablet Oral Daily DISCONTD: meropenem [...] bruises, rashes, lesions, or ulcers. DATA Lab 10/10/1244210/10/1211910/09/12 0530 WBC 8.5 7.6 8.3 RBC 3.06* 3.52* 2.91* HCT 25.6* 29.0* 24.8* MCV 83.7 82.2 85.0 MCH 26.9* 26.2* 27.4 MCHC 32.2 31.8* 32.3 RDW 51.6 52.1 53.4* PLT 368 423* 376 MPV 7.4 7.0 6.8 DIFFTYPE AUTOMATED AUTOMATED AUTOMATED Lab 10/10/1244210/10/1211910/09/12 0530 K 4.0 3.9 4.0 CL 94* [...] 6* EGFR 13* 13* 16* BMP: Lab 10/10/1244210/10/1211910/09/12 0530 NA 132* 134* 136 K 4.0 3.9 4.0 CL 94* 95* 99 CO2 23 28 28 ANIONGAP 18 15 14 GLUF 127* 106* 94 BUN 35* 36* 27* CREATININE 5.23* 5.09* 4.26* BCR 7 7 6 CA 7.7* 7.8* 7.4* EGFR 13* 13* 16* Lab 10/10/1244210/10/1211910/09/12 0530 MG 2.0 1.9 1.9 No results [...] Name: CAROL POTTER Date of : 1965 [facility] Physician: Beny Valencia MD INDICATIONS endocarditis CONCLUSIONS 1. The left ventricle i s moderately dilated. 2. Overall left ventricular systolic function is mild-moderately impai red with, an EF between 40 - 45 %. 3. No vegetation visualized. 4. Knff-eo-fnmxjnjw mitral r egurgitation is present. 5. There [...] Aortic Valve: No vegetation visualized. Mitral Valve: Yfsg-on-bdsdbarh mitral regurgitation is present. Tricuspid Valve: The tricuspid valve appears structurally normal. Trace/Mild (physiologic) regurgitation. Aorta: Ascending aorta, aortic arch and descending thoracic aorta are of normal caliber with no significant atherosclerotic disease. Mass: No m ass visualized. Thrombus: No clot visualized. Pericardium: There is a trivial pericardial ef fusion present. MEASUREMENTS Grader Green Meat: RADHA Authenticated by: Beny Rousseau Report Date/Time: [...] Now resolved. Pt is [facility]. Debility; will need e xtensive physical therapy. Moderate protein malnutrition;cont nutritional support. Disposition: inpatient Code Status: Full Code Khanh Rangel MD 10/10/2012 onversio n Transaction, Provider Unknown - 10/10/2012 3:32 PM PDTFormatting of this note might be di fferent from the original. Progress Notes by Tiana Fnotana RD at 10/10/12 153 Author: Tiana Fontana RD Service: (none) Author Type: Registered Dietitian Filed: 10/10/12 1538 Date of Service: 10/10/121531 Status: Signed Top Precipitator Operator: Tiana Fontana RD (Registered Dietitian) JAVI assessment of nutrition status: Moderate malnutrition [...] PDT Progress Notes by Makenna Calvo at 10/10/122 Author: Makenna Calvo Service: (none) Author Type: Ware Carrier Filed: 10/10/12 726 Date of Service: 10/10/121341 Status: Signed Top Precipitator Operator: Makenna Calvo (Ware Carrier) RADHA met with Ophelia Gordon the community health RN for [facility] [phone]... She stated t hat it would be best if CM could try to get pt into [facility] as pt will have to have his dialysis done in [facility] and if pt goes to [facility] it will be hard for arranging transportation... RADHA also spoke with pts spouse Shyanne [phone], Shyanne has a so n at home [...] voucher for transport on Saturday as the [facility] does not run on Saturday, pt will take [facility] on Saturday to return. .. CM advised Shyanne to let pt know this plan as pt gets depressed when left at hospital stevie e... Will continue to follow... D/C plan is to attempt to get pt into [facility] in [facility] again closer to D/C ( they w ere full prior attempt). So Overton - 10/10/2012 11:03 AM PDTFormatting of this note might be different from the origin al. Progress Notes by So Nunez PT at 10/10/12 110 Author: So Nunez PT Service: (none) Author Type: Physical Therapist Filed: 10/10/121102 Date of Service: 10/10/121102 Status: Signed Top Precipitator Operator: So Nunez PT (Physical Therapist) 10/10/12 110 PT Last Visit PT Received On 10/10/12 PT Therapy Visit Not available Requires PT Follow Up Unavailable Other Comments Comments Pt having HD at this time. Will check back as PT schedules permit. onNik Medeiros - 10/10/2012 4:45 AM PDT Progress Notes by Carmina Lara RPH at 10/10/12444 Author: Carmina Lara RPH Service: (none) Author Type: Pharmacist Filed: 10/10/12444 Date of Service: 10/10/12444 Status: Signed Top Precipitator Operator: Carmina Lara RPH (Pharmacist) Clinical Pharmacy Note: Renal Monitoring Carol Potter 47 y.o. male Height: 170.2 cm Weight: 67.4 kg Patient is on hemodialysis - Usual schedule: Sat-Sat-Sat. Pharmacy dosing for renal function per Dr. Mercado. Will order the following dosage adjustments: Meropenem 500 mg IV Q24H - this is readily dialyzed so after next dialysis dose is to be r escheduled to be given after each HD. Pharmacy will continue to monitor for changes in medication orders and adjust accordingly. Carmina Lara, PharmD 10/10/2012 4:42 AM Bhargav Wilson MD - 10/10/2012 1:29 AM PDTFormatting of this note might be different from the o riginal. Significant Event by Bhargav Mercado MD at 10/10/12128 Author: Bhargav Mercado MD Service: Hospitalist Author Type: Physician Filed: 10/10/12 2211 Date of Service: 10/10/12128 Status: Signed Top Precipitator Operator: Bhargav Mercado MD (Physician) Rapid assessment team [...] original. Progress Notes by Marivel Ocampo at 10/09/121734 Author: Marivel Ocampo Service: (none) Author Type: Registered Nurse Filed: 10/09/121735 Date of Service: 10/09/121734 Status: Signed Top Precipitator Operator: Marivel Ocampo In pts room to assist with dany, pt sedated per dr valencia's orders, pt stable, report to RN. Vs q 15 min post, hob at 30 deg, side rail up x2, call abraham in hand, bed down and locked. a v Ellie Azevedo MD - 10/09/2012 5:08 PM PDTFormatting of this note might be different from rodrigo sierra original. Progress Notes by Khanh Rangel MD at 10/09/121707 Author: Khanh Rangel MD Service: (none) Author Type: Physician Filed: 10/09/121715 Date of Service: 10/09/121707 Status: Signed Top Precipitator Operator: Khanh Rangel MD (Physician) [facility] Service: Hospitalist Progress Note Hospital Day: [...] mg Intravenous See Admin Instructions vitamin B tvdtukv-W-giddo acid 1 tablet Oral Daily DISCONTD: clindamycin [...] bruises, rashes, lesions, or ulcers. DATA Lab 10/09/12 0530 10/08/12 0540 10/07/12 0400 WBC 8.3 14.2* 11.5* RBC 2.91* 3.11* 3.58* HCT 24.8* 26.0* 29.5* MCV 85.0 83.8 82.4 MCH 27.4 27.4 26.6* MCHC 32.3 32.7 32.2 RDW 53.4* 50.3 49.9 PLT 376 420* 430* MPV 6.8 6.8 7.1 DIFFTYPE AUTOMATED AUTOMATED AUTOMATED Lab 10/09/12 0530 10/08/12 0540 10/07/12 0400 K 4.0 5.4* 4.4 [...] 7* EGFR 16* 11* 17* BMP: Lab 10/09/12 0530 10/08/12 0540 10/07/12 0400 NA 136 132* [...] abdomen. Xr Cervical Spine 3 View 10/04/2012 CAROLDIANELYS POTTER XR CERVICAL SPINE LIMITED 2-3 VIEW [...] other findings Xr Chest 1 View 10/08/2012 CAROLDIANEL[facility] POTTER XR CHEST 1 VIEW 10/08/2012 12:20 [...] Notes by Ebenezer Johns PT at 10/09/12 9326 Author: Ebenezer Johns PT Service: (none) Author Type: Physical Therapist Filed: 10/09/12 1450 Date of Service: 10/09/121450 Status: Signed Top Precipitator Operator: Ebenezer Johns PT (Physical Therapist) 10/09/12 1052 PT Last Visit PT Received On 10/09/12 [...] d while RN cleaned pt by rolling [id number]-[id number]. Cognition Overall Cognitive Status WFL Orientation Level [...] Service: Nephrology Author Type: Physician Filed: 10/09/12 7602 Date of Service: 10/09/12 1151 Status: Signed Top Precipitator Operator: Cosmo Soria MD (Physician) PCP is [facility] LOS: 6 days Carol Potter is [...] mg Intravenous See Admin Instructions vitamin B sbbnthh-D-mlxkh acid 1 tablet Oral Daily DISCONTD: clindamycin [...] who is dialyzed Saturday and Saturday at [facility] via Left upper extremity br achio cephalic fistula (last HD was Saturday10/03/12). He is now admitted with C. Difficile colitis and failure to thrive. Hospitalization has been complicated by staph aureus bacteremia. I will continue maintenance HD. Records from [facility] unit Have been reviewed.I s poke [...] binders for now. 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 Lab Results Component Value Date URICACID [...] am . COSMO SORIA MD 10/09/2012 onversion Transactio n, Provider Unknown - 10/08/2012 12:25 PM PDT Progress Notes by Ruslan Amezquita PTA at 10/08/12 1225 Author: Ruslan Amezquita PTA Service: (none) Author Type: Workers' Compensation Claims Supervisor Filed: 10/08/12 1225 Date of Service: 10/08/12 1225 Status: Signed Top Precipitator Operator: Ruslan Amezquita PTA (Workers' Compensation Claims Supervisor) 10/08/12 1224 PT Last Visit PT Received On 10/08/12 PT Therapy Visit Not available Requires PT Follow Up Unavailable Other Comments Comments pt receiving HD onver quique Transaction, Provider Unknown - 10/08/2012 11:23 AM PDT Progress Notes by Yusra Vallejo RN at 10/08/12 1123 Author: Yusra Vallejo RN Service: (none) Author Type: Registered Nurse Filed: 10/08/12 1126 Date of Service: 10/08/12 1123 Status: Signed Top Precipitator Operator: Yusra Vallejo RN (Registered Nurse) Received call from lab, 2/ positive blood cultures gram neg cocci in anaerobic bottles. Re sults given to Dr Rangel who is here on floor rounding. hela Brown RP - 10/08/2012 10:42 AM PDTFormatting of this note might be different from t barbie original. Progress Notes by Chela Varela RPH at 10/08/12 1042 Author: Chela Varela RPH Service: (none) Author Type: Pharmacist Filed: 10/08/12 1042 Date of Service: 10/08/12 1042 Status: Signed Top Precipitator Operator: Chela Varela RPH (Pharmacist) Clinical Pharmacy Note [...] Date of Service: 10/08/12 1025 Status: Signed Top Precipitator Operator: Cosmo oSria MD (Physician) PCP is [facility] LOS: 5 days Carol Potter is [...] He is seen on HD with HD RNJimmie. HEENT: no JVD, non icteric sclera. Cardiovascular: [...] vancomycin 750 mg Intravenous Once vitamin B wehiqjl-A-jxhsa acid 1 tablet Oral Daily DISCONTD: allopurinol [...] who is dialyzed Saturday and Saturday at [facility] via Left upper extremity br achio cephalic fistula (last HD was Saturday10/03/12). He is now admitted with C. Difficile colitis and failure to thrive. I will continue maintenance HD. Records from [facility] Have been reviewed.I s poke [...] binders for now. 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 Lab Results Component Value Date URICACID [...] Date of Service: 10/08/12 1000 Status: Addendum Top Precipitator Operator: Rowena Araya RN (Registered Nurse) Related Notes: Original Note by Rowena Araya RN (Registered Nurse) filed at 10/08/12 1140 Report given to HARDIK Tyler. Ellie Azevedo MD - 10/08/2012 9:07 AM PDTFormatting of this note might be different from th mariela original. Progress Notes by Khanh Rangel MD at 10/08/12 0907 Author: Khanh Rangel MD Service: (none) Author Type: Physician Filed: 10/08/12 1833 Date of Service: 10/08/12 0907 Status: Signed Top Precipitator Operator: Khanh Rangel MD (Physician) [facility] Service: Hospitalist Progress Note Hospital Day: LOS: 5 days Post-Op Day: * No surgery found * SUBJECTIVE Events Overnight: Eating dinner, denies any complaints. Is aware wanting to go to [facility]. ROS: 12 point ROS reviewed and negative [...] sevelamer 800 mg Oral TID vitamin B kvpqcad-C-ytans acid 1 tablet Oral Daily DISCONTD: allopurinol [...] bruises, rashes, lesions, or ulcers. DATA Lab 10/08/1253910/07/1239910/06/12409 WBC 14.2* 11.5* 8.9 RBC 3.11* 3.58* 3.40* HCT 26.0* 29.5* 28.6* MCV 83.8 82.4 84.1 MCH 27.4 26.6* 27.1 MCHC 32.7 32.2 32.3 RDW 50.3 49.9 47.7 PLT 420* 430* 420* MPV 6.8 7.1 7.1 DIFFTYPE AUTOMATED AUTOMATED AUTOMATED Lab 10/08/1253910/07/1239910/06/12409 K 5.4* 4.4 4.6 CL 96* 96* [...] 9* EGFR 11* 17* 11* BMP: Lab 10/08/1253910/07/1239910/06/12409 NA 132* 133* 129* K 5.4* 4.4 4.6 CL 96* 96* 91* CO2 25 27 23 ANIONGAP 17 14 19 GLUF 81 80 77 BUN 38* 22 34* CREATININE 5.70* 3.93* 5.73* BCR 7 6 6 CA 8.0* 7.9* 7.8* EGFR 11* 17* 11* Lab 10/08/1240 10/07/12 0400 10/06/12 0410 MG 2.0 1.9 [...] vancomycin IV. TIFFANIE/CKD; HD today. Discussed with viral Soria briefly. Debility; cont PT/OT. CXR: increase [...] 10/07/121746 Date of Service: 10/07/121743 Status: Signed Top Precipitator Operator: Cosmo Soria MD (Physician) PCP is [facility] LOS: 4 days Carol Potter is [...] sevelamer 800 mg Oral TID vitamin B zmtelbs-H-gmvjb acid 1 tablet Oral Daily Continuous Infusions [...] who is dialyzed Saturday and Saturday at [facility] via Left upper extremity br achio cephalic fistula (last HD was Saturday10/03/12). He is not admitted with C. Difficile colitis and failure to thrive. I will continue maintenance HD. Records from [facility] Have been reviewed.I s poke [...] binders for now. 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 Lab Results Component Value Date URICACID [...] care team, . COSMO SORIA MD 10/07/2012 OTonKhanh M D - 10/07/2012 4:38 PM PDT Progress Notes by Khanh Rangel MD at 10/07/12 0571 Author: Khanh Rangel MD Service: (none) Author Type: Physician Filed: 10/07/12 4224 Date of Service: 10/07/12 6153 Status: Signed Top Precipitator Operator: Khanh Rangel MD (Physician) [facility] Service: Hospitalist Progress Note Hospital Day: [...] sevelamer 800 mg Oral TID vitamin B zeaeukn-O-zsulg acid 1 tablet Oral Daily Continuous Infusions [...] bruises, rashes, lesions, or ulcers. DATA Lab 10/07/12 0400 10/06/12 0410 10/05/12 0400 WBC 11.5* 8.9 7.9 RBC 3.58* 3.40* 3.41* HCT 29.5* 28.6* 28.6* MCV 82.4 84.1 83.9 MCH 26.6* 27.1 27.3 MCHC 32.2 32.3 32.5 RDW 49.9 47.7 48.1 PLT 430* 420* 378 MPV 7.1 7.1 7.0 DIFFTYPE AUTOMATED AUTOMATED AUTOMATED Lab 10/07/12 0400 10/06/12 0410 10/05/12 0400 K 4.4 4.6 4.6 CL 96* 91* 91* CO2 27 23 27 ANIONGAP 15 GLUF 80 77 83 BUN 22 34* 22 CREATININE 3.93* 5.73* 4.22* BCR 6 6 5 CA 7.9* 7.8* 7.7* PROT 7.8 7.3 6.9 ALB 1.7* 1.6* 1.5* GLOB 6.1* 5.7* 5.4* AGRATIO -- -- -- BILITOT 0.4 0.4 0.5 ALP 93 89 91 AST 14 14 36 ALT 7* 9* 12 EGFR 17* 11* 16* BMP: Lab 10/07/12 0400 10/06/120 10/05/12 0400 NA 133* 129* 129* K 4.4 4.6 4.6 CL 96* 91* 91* CO2 27 23 27 ANIONGAP 15 GLUF 80 77 83 BUN 22 [...] abdomen. Xr Cervical Spine 3 View 10/04/2012 [facility]OL[facility]AN[facility] POTTER XR CERVICAL SPINE LIMITED 2-3 VIEW [...] Status: Full Code Khanh Rangel MD 10/07/2012 onversyovany romo Transaction, Provider Unknown - 10/07/2012 1:14 PM PDTFormatting of this note might be di fferent from the original. Progress Notes by Macho Abraham MS at 10/07/12 1314 Author: Macho Abraham MS Service: (none) Author Type: Ware Carrier Filed: 10/07/12 1318 Date of Service: 10/07/12 1314 Status: Signed Top Precipitator Operator: Macho Abraham MS (Ware Carrier) CM spoke with Shyanne, pt's spouse and she is planning on coming to [facility] this afternoon and she reports she can transport pt to [facility] when discharge. She plans to stay the night if not discharged. onver quique Transaction, Provider Unknown - 10/07/2012 10:51 AM PDT Progress Notes by Ruslan Amezquita PTA at 10/07/12 1051 Author: Ruslan Amezquita PTA Service: (none) Author Type: Workers' Compensation Claims Supervisor Filed: 10/07/12 1051 Date of Service: 10/07/12 1051 Status: Signed Top Precipitator Operator: Ruslan Amezquita PTA (Workers' Compensation Claims Supervisor) 10/07/12 1048 PT Last Visit PT Received [...] Progress Notes by Macho Abraham MS at 10/07/12957 Author: Macho Abraham MS Service: (none) Author Type: Ware Carrier Filed: 10/07/12 1000 Date of Service: 10/07/12957 Status: Signed Top Precipitator Operator: Macho Abraham MS (Ware Carrier) Discharge planning update: CM met with pt today, he is agreeable with a discharge to [facility] in [place]. CM to fax orders to [facility] when they become available. Dorene Han MD - 10/06/2012 6:58 PM PDTFormatting of this note might be different from the orig inal. Progress Notes by Dorene Jeffrey MD at 10/06/121857 Author: Dorene Jeffrey MD Service: (none) Author Type: Physician Filed: 10/06/12 193 Date of Service: 10/06/121857 Status: Signed Top Precipitator Operator: Dorene Jeffrey MD (Physician) [facility] Service: Hospitalist Progress Note Hospital Day: [...] and he will need SNF placement. Amado e has been accepted to [facility] when ready for discharge. Dr. Soria is [...] Oral Daily metroNIDAZOLE 500 mg Oral Q8H [facility] omeprazole 40 mg Oral Daily sevelamer 800 mg Oral TID vitamin B hgyudkp-E-rivfi acid 1 tablet Oral Daily DISCONTD: allopurinol [...] Extremities: venous stasis dermatitis noted DATA Lab 10/06/120 10/05/12 0400 10/04/12 0521 WBC 8.9 7.9 7.9 HGB 9.2* 9.3* 9.8* HCT 28.6* 28.6* 30.9* PLT 420* 378 426* NEUTOPHILPCT 77.4* 74.7 72.5 MONOPCT 8.9 9.2 10.7 Lab 10/06/120 10/05/12 0400 10/04/12 0521 NA 129* 129* [...] massage therapy. Qian ent can transfer to [facility] on acceptance. 4) Anemia of chronic disease - stable, continue to monitor 5) ESRD - Nephrology consulted for dialysis, will continue with MWF schedule. 6) Gout - patient to continue with allopurinol 7) Hypothyroidism - continue with levothyroxine. 8) History of Diabetes, diet controlled 9) GERD - on omeprazole 10) DVT prophylaxis with heparin Disposition: inpatient Code Status: Full Code DORENE EJFFREY MD 10/06/2012 onversio n Transaction, Provider Unknown - 10/06/2012 4:04 PM PDTFormatting of this note might be di fferent from the original. Progress Notes by Macho Abraham MS at 10/06/12 1604 Author: Macho Abraham MS Service: (none) Author Type: Ware Carrier Filed: 10/07/12 0934 Date of Service: 10/06/12 1604 Status: Addendum Top Precipitator Operator: Macho Abraham MS (Ware Carrier) Related Notes: Original Note by Macho Abraham MS (Ware Carrier) filed at 10/06/12 1605 CM received call back from Omiro at [facility] and she states they do not have a private room for pt. CM faced inquiry to [facility] to inquire about a private room. Awaiting determina tion. Discharge planning update: [facility] in [place] per [facility] has accepted pt. They can admit p t Saturday or when needed. Cosmo Lang MD - 10/06/2012 2:00 PM PDTFormatting of this note might be different from the or iginal. Progress Notes by Cosmo Soria MD at 10/06/12 1400 Author: Cosmo Soria MD Service: Nephrology Author Type: Physician Filed: 10/06/12 0053 Date of Service: 10/06/12 1400 Status: Signed Top Precipitator Operator: Cosmo Soria MD (Physician) PCP is [facility] LOS: 3 days Carol Potter is [...] sevelamer 800 mg Oral TID vitamin B zhirwxf-E-mmdse acid 1 tablet Oral Daily DISCONTD: allopurinol [...] who is dialyzed Saturday and Saturday at [facility] via Left upper extremity br achio cephalic fistula (last HD was Saturday10/03/12). He is not great with C. Difficile colitis and failure to thrive. I will continue maintenance HD. Records from [facility] Have been reviewed.I s poke [...] binders for now. 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 Lab Results Component Value Date URICACID [...] Notes by Macho Abraham MS at 10/06/12 1241 Author: Macho Abraham MS Service: (none) Author Type: Ware Carrier Filed: 10/06/12 1244 Date of Service: 10/06/12 1241 Status: Addendum Top Precipitator Operator: Macho Abraham MS (Ware Carrier) Related Notes: Original Note by Macho Abraham MS (Ware Carrier) filed at 10/06/12 1243 CM spoke with Santos at [facility] and facility is still making a determination. Pt is conn ected with [facility]. Facility is verifying pt's transportation to/from dialysis and if [facility] will offer transport assistance. CM also shared with Angelique that [facility] and could use Medicaid transportation services too. Transfer forms on chart as ne eded. onver quique Transaction, Provider Unknown - 10/06/2012 10:10 AM PDT Progress Notes by Ruslan Amezquita PTA at 10/06/12 1010 Author: Ruslan Amezquita PTA Service: (none) Author Type: Workers' Compensation Claims Supervisor Filed: 10/06/12 1011 Date of Service: 10/06/12 1010 Status: Signed Top Precipitator Operator: Rsulan Amezquita PTA (Workers' Compensation Claims Supervisor) 10/06/12 1010 PT Last Visit PT Received [...] 10/05/121917 Date of Service: 10/05/121909 Status: Signed Top Precipitator Operator: Dorene Jeffrey MD (Physician) [facility] Service: Hospitalist Progress Note Hospital Day: [...] 800 mg Oral TID WC vitamin B fjlbwxh-Q-wutzl acid 1 tablet Oral Daily Continuous Infusions [...] 72.5 80.5* MONOPCT 9.2 10.7 7.7 Lab 10/05/1239910/04/12 0510/03/122116 NA 129* 132* 136 K 4.6 3.9 [...] Notes by Ruslan Amezquita PTA at 10/05/12 1421 Author: Ruslan Amezquita PTA Service: (none) Author Type: Workers' Compensation Claims Supervisor Filed: 10/05/12 1421 Date of Service: 10/05/12 142 Status: Signed Top Precipitator Operator: Ruslan Amezquita PTA (Workers' Compensation Claims Supervisor) 10/05/12 1419 PT Last Visit PT Received [...] Author: VANDANA Olivia Service: (none) Author Type: Ware Carrier Filed: 10/05/12 1400 Date of Service: 10/05/12 1357 Status: Signed Top Precipitator Operator: VANDANA Olivia (Ware Carrier) CM met with Pt re dc plan. Pt lives at home with Spouse and 2 adult Son's. He is unable t o ambulate and uses a wheelchair. Family assists with all ADL's. Pt stated he wants to sta rt walking again and that he's been on a "waiting list" for [facility] since last Saturday for rehab. Referral faxed [...] Date of Service: 10/04/12 1641 Status: Signed Top Precipitator Operator: Dorene Jeffrey MD (Physician) [facility] Service: Hospitalist Progress Note Hospital Day: LOS: 1 day Post-Op Day: * No surgery found * SUBJECTIVE Patient Summary: Patient admitted for failure to thrive. He reports having diarrhea for the last three days, and he has been recently treated for MSSA bacteremia and arthiritis . Events Overnight: patient reports still feeling weak. Was working with physical Flattra py, but states that he was in [...] 800 mg Oral TID WC vitamin B uinmuxx-E-htbxu acid 1 tablet Oral Daily Continuous Infusions [...] Extremities: venous stasis dermatitis noted DATA Lab 10/04/12 0510/03/122116 WBC 7.9 7.9 HGB 9.8* 10.2* HCT 30.9* 32.1* PLT 426* 355 NEUTOPHILPCT 72.5 80.5* MONOPCT 10.7 7.7 Lab 10/04/12 0521 10/03/122116 NA 132* 136 K 3.9 3.6 CL [...] Progress Notes by Kirti Álvarez RN at 10/04/12 2204 Author: Kirti Álvarez RN Service: Wound/Ostomy Care Author Type: Registered Nurse Filed: 10/04/12 1433 Date of Service: 10/04/121427 Status: Signed Top Precipitator Operator: Kirti Álvarez RN (Registered Nurse) Patient seen today by disability examiner for evaluation due to open pressure ulcer [...] wh ich were saturated. Attends changed by THIRD HAND and primary RN. Patient is on a static air overla y mattress and heels are elevated. Please consult wound care if further needs arise. Thank you, HARDIK Bermudez 2:28 PM 10/04/2012 AriSo han Kelvin - 10/04/2012 2:10 PM PDTFormatting of this note might be different from the origin al. Progress Notes by So Nunez PT at 10/04/12 1410 Author: So Nunez PT Service: (none) Author Type: Physical Therapist Filed: 10/04/12 6970 Date of Service: 10/04/12 1410 Status: Signed Top Precipitator Operator: So Nunez PT (Physical Therapist) 10/04/12 1410 [...] will benefit from massage therapy treatment whi le in the hospital as well as physical [...] Therapist Filed: 10/04/12 1512 Date of Service: 10/04/12 1410 Status: Signed Top Precipitator Operator: So Nunez PT (Physical Therapist) 10/04/12 1410 [...] lot with FWW so uses FWW. Roberto domoody pushes him in w/c d/t (L) RCT limiting his ability to use w/c. Recommendation Recommendations SNF;Home PT;Home OT;Continue acute care therapy Equipment Recommended (has necessary equipment) Prior Function Level of [place] Assist with functional mobility;Assist with ADLs;Assist with [...] Pain Pain Orientation Left;Inner Pain Location Thigh onNik Medeiros Unknown - 10/04/2012 11:48 AM PDT Progress Notes by Trinidad Coon RPH at 10/04/12 1148 Author: Trinidad Coon RPH Service: (none) Author Type: Pharmacist Filed: 10/04/12 1148 Date of Service: 10/04/121147 Status: Signed Top Precipitator Operator: Trinidad Coon RPH (Pharmacist) Renal Dosing Monitoring: Carol Potter 47 y.o. male Pharmacy dosing for renal function per Dr. Jeffrey SCr = 2.81, est CrCl = 29.7 Plan per protocol: At present, all medications are appropriately dosed. Pharmacy will continue monitoring patient for appropriate dosing per renal function. 10/04/2012 11:41 AM Pharmacist: Trinidad Coon onver Kay Newton Unknown - 10/04/2012 9:20 AM PDT Progress Notes by Vickie Hernandez RN at 10/04/12 0971 Author: Vickie Hernandez RN Service: (none) Author Type: Registered Nurse Filed: 10/04/12929 Date of Service: 10/04/12919 Status: Signed Top Precipitator Operator: Vickie Hernandez RN (Registered Nurse) Report given to Chidi DYE on . Pt to be inpatient and go 6605 ------KPEOTRN 10/04/12929. docume nted in this encounter H&P Notes Galdino Oliveros MD - 10/03/2012 11:15 PM PDTFormatting of this note might be dif ferent from the original. H&P by Galdino Oliveros MD at 10/03/122314 Author: Galdino Oliveros MD Service: (none) Author Type: Physician Filed: 10/04/12612 Date of Service: 10/03/122314 Status: Signed Top Precipitator Operator: Galdino Oliveros MD (Physician) Related Notes: Original Note by Galdino Oliveros MD (Physician) filed at 10/04/12 0241 [facility] Service: Hospitalist Admission History & Physical Date of Admission: 10/03/2012 Requesting Physician: [facility] Reason for Admission: Failure to thrive and weakness. History Obtained From: patient CHIEF COMPLAINT: Weakness. HISTORY OF PRESENT ILLNESS The patient is a 47 y.o. male with significant past medical history. The patient is a transfer from [facility] in [place], [place] with a chief complaint that he has generalized weakness and unable to walk on his feet especially after hemodialysis session earlier today. The patient is lying comfortably in bed. He is not in apparent distress. He denies any fever recently. He has recent infection. According to him a head cold which has been treated over the last few months. Also a couple of days ago he was driven on the wheelchair to the hemodialysis session when he fell off the chair. The patient overall complained of generalized weakness, tiredness, not able to stand on his feet and the patient also reports diminished p.o. intake and loss of appetite. According to him he lost almost 40 pounds over the last few months. The patient used to be diabetic but currently untreated and assuming from his recent loss of weight his blood sugar is not elevated at this point. The patient also complained of chronic neck and back pain. Also his legs have been hurting since the fall a few days ago. The patient denied any fever at home. Currently afebrile. He looks more comfortable at the moment but still feeling general weakness and unable to stand on his own. So, my plan is to keep him overnight and consult physical therapy for further evaluation no other significant complaint. REVIEW OF SYSTEMS Negative except for pertinent [...] dependence, continuous 04/02/2012 Chronic kidney disease dialysis Past Surgical History Procedure Date Colonoscopy with egd 05/01/2012 Procedure: COLONOSCOPY W/ EGD; Surgeon: John Singleton MD; Location: [facility] ENDOSCOPY; Se rvice: Gastroenterology; Laterality: N/A; Av fistula placement 05/06/2012 Procedure: AV FISTULA; Surgeon: Oskar Meyer MD; Location: [facility] MAIN OR; Service: Vascul ar; Laterality: Left; Left arm possible right Unlisted procedure arthroscopy shoulder rt , ligaments Knee arthroscopy 07/07/2012 Procedure: KNEE - ARTHROSCOPY; Surgeon: Favio Raza MD; Location: [facility] MAIN OR; S ervice: Orthopedics; Laterality: Right; After 1530 Catheter removal 07/07/2012 Procedure: DIALYSIS CATHETER REMOVAL; Surgeon: Oskar Meyer MD; Location: [facility] BEDSIDE WI OCEDURE; Service: General; Laterality: Right; perm cath Dialysis fistula creation 07/07/2012 Procedure: DIALYSIS CATHETER INSERTION; Surgeon: Oskar Meyer MD; Location: [facility] BEDSIDE PROCEDURE; Service: General; Laterality: Left; temporary dialysis catheter Av fistula repair 07/11/2012 Procedure: AV FISTULA GRAFT REPAIR/REVISION; Surgeon: Oskar Meyer MD; Location: [facility] OR; Service: Vascular; Laterality: Left; Superficialization of brachiobasilic fistula and right IJ perm cath insertion Dialysis fistula creation 07/11/2012 Procedure: DIALYSIS CATHETER INSERTION; Surgeon: Oskar Meyer MD; Location: [facility] MAIN OR; Service: Vascular; Laterality: Left; removed dialysis catheter from left neck and placed new on in left chest, attempted in right neck but unable to place Immunizations: Influenza: Up-to-date Pneumoccocal: Not indicated Allergies Allergen Reactions Lisinopril [...] BIOLOGICAL; 2 STEP KIDSUNEMPLOYED BEFORE WORKED AT [employer] IN [place] NONE ETOH QUIT 15 YEARS AGODRUGS: quit METHAMPHETAMINES PER P ATIENT after the ARF in mar 2012FATHER HAS COLON CANCER, HEART DISEASEMOTHER 15 YEARS AGONO FH KIDNEY PROBLEMS. PHYSICAL EXAM Vital Signs: BP 147/80 | Pulse 85 | Temp 98.5 F (36.9 C) | Resp 20 | Ht 1.727 m (5' 8") | SpO2 100% General Appearance: Alert, cooperative, [...] to auscultation bilaterally, respirations unlabored Chest wall: No tenderness or deformity Heart: Regular rate and rhythm, S1 and S2 normal, no murmur, rub or gallop Abdomen: Soft, non-tender, bowel sounds active all four quadrants, no masses, no organomegaly Extremities: Extremities normal, atraumatic, no cyanosis or edema Pulses: 2+ and symmetric all extremities Skin: Skin color, texture, turgor normal, no rashes or lesions Lymph nodes: Cervical, supraclavicular, and axillary nodes normal Neurologic: CNII-XII intact. Normal strength, sensation and reflexes throughout DATA CBC: Lab Results Component Value Date WBC 7.9 10/03/2012 RBC 3.93* 10/03/2012 HGB 10.2* 10/03/2012 HCT 32.1* 10/03/2012 MCV 81.7 10/03/2012 MCH 26.0* 10/03/2012 MCHC 31.9* 10/03/2012 RDW 48.6 10/03/2012 PLT 355 10/03/2012 MPV 6.8 10/03/2012 DIFFTYPE AUTOMATED 10/03/2012 CMP: Lab Results Component Value Date NA 136 10/03/2012 K 3.6 10/03/2012 CL 95* 10/03/2012 CO2 35* 10/03/2012 ANIONGAP 10 10/03/2012 GLUF 83 10/03/2012 BUN 6* 10/03/2012 CREATININE 2.31* 10/03/2012 BCR 3 10/03/2012 CA 7.8* 10/03/2012 CA 6.1* 04/02/2012 PROT 7.4 10/03/2012 ALB 1.7* 10/03/2012 GLOB 5.7* 10/03/2012 BILITOT 0.5 10/03/2012 ALP 105 10/03/2012 AST 17 10/03/2012 ALT 12 10/03/2012 EGFR 32* 10/03/2012 PROBLEM LIST Principal Problem: *Adult failure to thrive Active Problems: Vitamin d deficiency Secondary hyperparathyroidism (of renal origin) Hypothyroidism HTN (hypertension) ESRD (end stage renal disease) on dialysis Anemia of chronic kidney failure Gout PUD (peptic ulcer disease) Weakness generalized ASSESSMENT & PLAN 1. General weakness. Etiology is not clear but most likely multifactorial, including end-stage renal disease, significant weight loss, and diminished p.o. intake over the last few days. Less likely organic cause at this point, but still I am thinking about sepsis or early infection. I instructed our nursing staff to culture his blood if he is spiking a temperature. In the meantime, will do physical therapy consult and evaluation. We will ask social service to evaluate his home environment, to see if any help we can provide, and in the meantime we will just monitor him overnight. 2. End-stage renal disease, currently on hemodialysis Saturday, Saturday, Saturday. He just finished his session this morning. If the patient stays until Saturday we will consult nephrology to arrange for dialysis. 3. Failure to thrive as mentioned in #1. We will consult social service and physical therapy for evaluation and recommendations. 4. Hypomagnesemia. Replace with magnesium sulfate 1 g IV x1. 5. Chronic anemia with no acute bleed. The patient was recently admitted in the end of August 2012 and he had upper endoscopy. At this point his hemoglobin and hematocrit are stable and no need for blood transfusion. 6. History of gout, no acute flare-up. We will resume allopurinol 300 mg daily. 7. Chronic back pain. We will resume Flexeril at 10 mg 3 times a day, as needed. 8. Hypothyroidism. Levothyroxine 50 mcg daily. 9. History of diabetes, currently well controlled without medication, most likely from his weight loss. 10. Anxiety and depression. We will resume Celexa 20 mg daily. 11. GI prophylaxis not required. 12. DVT prophylaxis. Heparin adjusted for renal function. 13. FULL CODE. Time for admission 70 minutes. Disposition: admit to observation. Code Status: Full code. Primary Care Physician: [facility] GALDINO OLIVEROS MD 10/03/2012 documente d in this encounter Procedure Notes Inder Anne MD - 10/09/2012 3:17 PM PDTFormatting of this note might be different from t he original. Procedures signed by Inder Anne MD at 11/05/12 1648 Author: Inder Anne MD Service: (none) Author Type: Physician Filed: 11/05/12 1648 Date of Service: 10/09/12 1517 Status: Signed Top Precipitator Operator: Inder Anne MD (Physician) CAROL POTTER Date of : 1965 PULMONARY FUNCTION STUDY AGE: 47 GENDER: Male HEIGHT: 5 feet, 7 inches WEIGHT: 148 pounds BODY MASS INDEX: 23.2 kg/m/sq. Spirometry shows decreased FEV1/FVC ratio. FEV1 is 32% predicted of normal. Severe obstructive airflow impairment is present. Recommend bronchodilator administration as well as lung volume studies with diffusion capacity for further study. P/ P/kh/[id number] INDER ANNE MD documented in this enco unter Consult Notes Mike Palacio H - 10/13/2012 9:58 PM PDTFormatting of this note might be different from th e original. Consult* by Mike Palacio DO at 10/13/122157 Author: Mike Palacio DO Service: Orthopedic Surgery Author Type: Physician Filed: 12/23/12 1114 Date of Service: 10/13/122157 Status: Signed Top Precipitator Operator: Mike Palacio DO (Physician) Related Notes: Original Note by Mike Palacio DO (Physician) filed at 12/21/12 0163 [facility] Service: Orthopedic Surgery Initial Consult Note 13 October 2012 Date of Admission: 10/03/2012 Reason for Consultation: Left inner thigh pain from the hip to knee to buttock Requesting Physician: Dr. Chandra, Hospitalist History Obtained From: patient, spouse, daughter in law, Chela CHIEF COMPLAINT: Left buttock to inner thigh to knee HISTORY OF PRESENT ILLNESS The patient is a 47 y.o. male with significant past medical history of DM; ESRD on hemodia lysis; DVT x 4; GI bleed; HTN; Cholesterol; MRSA; amphetamine and psychostimulant; gout; ast hma; former smoker who presents with Left buttock, inner thigh and knee but not below the k nee x two months - continous pain without relief. Started with dialysis in MAR 2012 gradual ly onset.of pain in the Jun 2012. Started to have pain in the right thigh in last three da ys. Both legs and with tingling in both feet x Jun 2012. No prior hx of this in the past. August started losing ability to walk. Both knee s buckle from pain both LE. No injury or trauma. REVIEW OF SYSTEMS Review of Systems Constitutional: Negative for fever. HENT: Negative for hearing loss. Eyes: Negative for visual disturbance. Respiratory: Positive for shortness of breath. Asthma Cardiovascular: Negative for chest pain. Gastrointestinal: Positive for diarrhea. Negative for nausea, vomiting and abdominal pain. Diarrhea started today Genitourinary: Negative for dysuria. Musculoskeletal: Negative for back pain. Neurological: Negative for seizures and headaches. Past Medical History Diagnosis Date Hyperlipidemia [...] EGD; Surgeon: John Singleton MD; Location: [facility] ENDOSCOPY; Se rvice: Gastroenterology; Laterality: N/A; Av fistula placement 05/06/2012 Procedure: AV FISTULA; Surgeon: Oskar Meyer MD; Location: [facility] MAIN OR; Service: Vascul ar; Laterality: Left; Left arm possible right Unlisted procedure arthroscopy shoulder rt , ligaments Knee arthroscopy 07/07/2012 Procedure: KNEE - ARTHROSCOPY; Surgeon: Favio Raza MD; Location: [facility] MAIN OR; chidi: Orthopedics; Laterality: Right; After 1530 Catheter removal 07/07/2012 Procedure: DIALYSIS CATHETER REMOVAL; Surgeon: Oskar Meyer MD; Location: [facility] BEDSIDE WI OCEDURE; Service: General; Laterality: Right; perm cath Dialysis fistula creation 07/07/2012 Procedure: DIALYSIS CATHETER INSERTION; Surgeon: Oskar Meyer MD; Location: [facility] BEDSIDE PROCEDURE; Service: General; Laterality: Left; temporary dialysis catheter Av fistula repair 07/11/2012 Procedure: AV FISTULA GRAFT REPAIR/REVISION; Surgeon: Oskar Meyer MD; Location: [facility] OR; Service: Vascular; Laterality: Left; Superficialization of brachiobasilic fistula and right IJ perm cath insertion Dialysis fistula creation 07/11/2012 Procedure: DIALYSIS CATHETER INSERTION; Surgeon: Oskar Meyer MD; Location: [facility] OR; Service: Vascular; Laterality: Left; removed dialysis catheter from left neck and placed new on in left chest, attempted in right neck but unable to place Allergies Allergen Reactions Lisinopril Other (See Comments) "makes me sweat and knocked me out" Penicillins Other (See Comments) Unknown 10/08/12: Patient tolerated Ceftriaxone during previous admissions. Prescriptions prior to admission Medication Sig Dispense Refill allopurinol (ZYLOPRIM) 300 MG tablet Take 300 [...] times daily as ne eded. ergocalciferol (DRISDOL) 09742 UNITS capsule Take 1 capsule by mouth once a week. 3 ca psule 0 HYDROcodone-acetaminophen (NORCO) 10-325 MG per tablet Take 1 tablet by mouth every 6 ( six) hours as needed. indomethacin (INDOCIN) 25 MG capsule Take 25 mg by mouth 3 (three) times daily with tarun ls. levothyroxine (SYNTHROID, LEVOTHROID) 50 MCG tablet Take 50 mcg by mouth daily. loperamide (IMODIUM) 2 MG capsule Take 2 mg by mouth 4 (four) times daily as needed. Indications: Diarrhea megestrol (MEGACE) 40 MG/ML suspension Take 200 mg by mouth daily. omeprazole (PRILOSEC) 40 MG capsule Take 40 mg by mouth daily. sodium bicarbonate 650 MG tablet Take 1,300 mg by mouth 2 (two) times daily. albuterol (PROVENTIL) (2.5 MG/3ML) 0.083% nebulizer solution Take 2.5 mg by nebulizatio n every 6 (six) hours as needed. sevelamer (RENVELA) 800 MG tablet Take 800 mg by mouth 3 (three) times daily with meals . Has not started taking yet Scheduled Medications carvedilol 3.125 mg Oral BID [...] vancomycin 750 mg Intravenous Once vitamin B fdlrijh-K-wwpbk acid 1 tablet Oral Daily Continuous Infusions PRN Medications acetaminophen, acetaminophen, albumin human, albuterol, HYDROcodone-acetaminophen, lidocain e buffered 1%, ondansetron, ondansetron Family History Problem Relation Age of Onset Heart disease Mother Heart disease Father Diabetes Father Cancer Father colon cancer History Smoking status Never Smoker Smokeless tobacco Never Used History Alcohol Use No History Drug Use No last used marijuana on 04/29/12, quit methaamphetamine in mar 2012 after ARF Stopped 4-5 yrs ago. 16 yo-43 yrs x ippd. No ETOH. Stopped etoh 14 yrs ago. Drugs meth and MJ. Stopped MAR 2012. [place] - Shyanne Son - Sam - Moni Son - Kirill Daughter in law Chela [phone] Cell. [phone] Cell Chela. PHYSICAL EXAM Vital Signs: BP 125/62 | Pulse 75 | Temp(Src) 98.2 F (36.8 C) (Oral) | Resp 18 | Ht 1.702 m (5' 7") | Wt 70 kg (154 lb 5.2 oz) | BMI 24.17 kg/m2 | SpO2 98% Physical Exam Constitutional: He appears well-developed. HENT: Head: Atraumatic. Eyes: EOM are normal. Cardiovascular: Normal rate. Pulmonary/Chest: Effort normal. Abdominal: Soft. Bowel sounds are normal. Left Hip Exam Comments: Palpation of the thigh and hip - Nontender Passive ROM of knee and hip joint R and L side no pain. Palpation of the GT on right and left NTP. Inspection of both left and right buttock no sores or breakdown of skin. DATA CBC: Lab Results Component Value Date [...] 10/13/2012 ALT 12 10/13/2012 EGFR 11* 10/13/2012 PT/INR: Lab Results Component Value Date INR 1.1 09/10/2012 PTT: Lab Results Component Value Date APTT 33* 09/10/2012 [APTT CAROL POTTER MRI HIP LEFT WO CONTRAST 10/12/2012 10:22 AM HISTORY: Left hip pain. Concern for infection. TECHNIQUE: Multiplanar MR imaging was performed to the left hip without gadolinium. FINDINGS: Compared with July 06, 2012. There are multifocal areas of red marrow reconversion in the pelvis and proximal femurs. Th ere is no abnormal signal intensity identified that would be suspicious for osteomyelitis. T here is no evidence of avascular necrosis of the femoral heads. There are small bilateral hi p joint effusions, symmetrical in size. There is mild fluid in the left trochanteric bursa, consistent with bursitis. Consider needle aspiration to exclude infected bursitis. There is bilateral inguinal lymphadenopathy measuring up to 13 x 24 mm on the left. This is mildly progressive from the prior study. There is a small T2 hyperintense microlobulated lesion in the proximal left femur measuring 7 mm, probably a small enchondroma. There is severe diffuse bilateral subcutaneous edema, most prominent laterally, nonspecific in etiology. No focal fluid collection is identified with suggest a soft tissue abscess. Th ere is also moderate to severe bilateral muscle edema, left worse than right involving the g luteus medius and minimus muscles, abductor muscles, obturator muscles, and iliopsoas muscle s. This is nonspecific in etiology and could potentially indicate myositis. This is mildly p rogressive from the prior examination. If there is a history of long-standing diabetes, then diabetic muscle infarctions would be possible. IMPRESSION: 1. Fluid in the left trochanteric [...] 5. Mild bilateral inguinal lymphadenopathy, mildly progressive. ORY: Bilateral hip pain. Sepsis. Renal failure. TECHNIQUE: Multiplanar multisequence MR images of the hips and pelvis were obtained without contrast. FINDINGS: Some of the images are limited due to motion artifact. No acute fracture, bone contusion, or osteonecrosis. Left Hip: Small physiologic amount of fluid at the joint capsule. Increased T2 signal withi n the left obturator internus and externus muscles and left pectineus muscle. No trochanteri c or iliopsoas bursal fluid collection. Left acetabular labrum is unremarkable on this nonar throgram exam. Articular cartilage is within normal limits. There is increased T2 signal wit hin the left gluteus kristyn muscle. Slight increased T2 signal at the distal left gluteus m edius muscle. Right Hip: Small physiologic amount of fluid at the joint capsule. No iliopsoas or trochant puneet bursal fluid collection. Slight increased T2 signal within the right gluteus minimus mu scle and right obturator externus and pectineus muscles. There is an approximately 3.6 x 1.4 x 1.7 cm lymph node at the right inguinal region. The right acetabular labrum is grossly un remarkable on this nonarthrogram exam. Articular cartilage at the right hip joint is within normal limits. No pelvic free fluid or lymphadenopathy. There is diffuse subcutaneous edema at the visualized lower back and pelvis. IMPRESSION: 1. No MR evidence of osteomyelitis at the pelvis or hips. 2. No abnormal hip joint effusions. 3. Increased T2 signal within the left obturator internus and externus muscles, left pectin eus muscle, left gluteus kristyn and medius muscles, right gluteus minimus muscle, right obt urator externus and pectineus muscles. This is nonspecific. It may be inflammatory in etiolo gy. 4. There is an enlarged right inguinal lymph node which may be inflammatory or neoplastic i n etiology. Clinical correlation is requested. 5. Diffuse subcutaneous edema at the visualized lower back and pelvis. A preliminary report was given by Dr. Leena Espino on 07/06/2012, time 11:08 p.m. Electronically signed by Sami Perez MD on Jul 07 2012 4:14PM EXAM: TRIPLE-PHASE BONE SCAN LIMITED EXAM DATE: 10/11/2012 04:52 PM. CLINICAL HISTORY: Infection. Left hip pain. Bacteremia. COMPARISON: None. TECHNIQUE: Patient was injected with 32 mCi of technetium 99m MDP intravenously with flow p hase gamma camera imaging anteriorly over the hips, 5 seconds per frame for 1 minute. Subseq uently, blood pool images of the hips were obtained. The patient returned 3 hours later for multiple spot images of the pelvis and hips. FINDINGS: Flow Phase: There is symmetric flow to bilateral hips. Blood Pool Phase: Increased soft tissue activity noted over the left hip and intratrochante kaylie region. Delayed Phase: Bone scan images of the hip and pelvis reveal normal and symmetric activity. No focal bone abnormalities are appreciated. IMPRESSION: Abnormal soft tissue activity over the left hip in the blood pool phase is comp atible with soft tissue inflammation. No significant increase in bone activity on the delaye d image. RADIA Electronically signed by Favio Archuleta MD on Oct 11 2012 6:55PM SITE ID: [id number] History: 47 year old male with hip pain. Bacteremia Technique: 2 views of the left hip. No prior study for comparison. Findings: No erosive change, joint space is symmetric. Range of motion normal. No fracture or aggressive lesion, but extensive calcified vasculopathy is appreciated. No subcutaneous e mphysema On the AP film there is some lucency about the inferior scrotum near the midline but this m ay simply be artifactual, should be easily correlated with physical examination. Bones are normal in density and mineralization and there is no evident aggressive lesion. N ormal round contour of both femoral heads without significant erosive or productive arthropa thy. No lytic lesion. Punctate calcification above the right transverse process of L5. IMPRESSION: No focal disease about the left hip discernible to this technique. If infection is suspect, note this examination is of low sensitivity both for osteomyelitis and for septic arthropathy. LEM LIST Principal Problem: *Adult failure to thrive [...] Malnutrition of moderate degree ASSESSMENT & PLAN A: 1. Left buttock inner thigh to knee pain 2. Now starting last three days right inner thigh pain 3. Right and Left LE weakness and tingling in the foot and leg 4. MRI of the hip and nuclear bone scan on the left is unremarkable - no infection or absc ess P: 1. No indication for aspiration or surgery on the left and right lower extremity. 2. Reviewed the MRI and nuclear bone scan and xrays with the radiologist. 3. I can passively flex both left and right hip and IRotate and ERotate the hip and knee a nd there is no pain. 4. The buttock have no pressure sores. 5. No indication for xray or CT guide aspiration of the bursa sac or hip joint. Both hip joints symmetric amount of fluid. PLAN 1. I reviewed with the patient and the family members to include the that the patient has left buttock inner thigh pain with pain down to the knee. This has been going on for the last 3 days. He has weakness in both right and left lower extremities with tingling and num bness. I also reviewed with them that the MRI of the right and left hip shows no abnormaliti es in terms of infection or fracture or dislocation or tumor. In addition to that, nuclear b one scan did not show an infection or abscess. Plain x-rays of the left lower extremity were unremarkable. 2. Dr. Palacio had personally reviewed the MRI, nuclear bone scan and the x-rays with the rad iologist so he is aware of the issues. 3. When Dr. Palacio examined the patient, both the left and right hip could be flexed, rv body mechanic ally rotated and internally rotated without any pain issues. At this point in time because o f the very normal exam, there is no indication for x-ray or CT-guided aspiration of the burs al sac or of the hip joint. In both hip joints, there are symmetrical amounts of fluids. Th ere is low probability of hip joint infection. 4. At this point in time, I indicated that there is no indication for any type of surgery f or the lower extremities. There is no indication for aspirating the joint of the hip or the knee. 5. Continue with therapy as indicated for followup in 3 to 4 weeks or earlier as indicated. 6. This was a long consult because of the education regarding the findings and reviewing al l of the studies that the patient has had regarding the left lower extremity which at this p oint in time do not show any infection, abscess, tumor, trauma or fracture. 7. Answered questions from patient and and family. Code Status: Full Code Primary Care Physician: [facility] Thank you for allowing me to participate in the care of this patient. MIKE PALACIO DO 10/13/2012 Trevor Lockett - 10/11/19 13 4:31 PM PDT Consult* by Trevor Escobar DO at 10/10/12 6000 Author: Trevor Escobar DO Service: (none) Author Type: Physician Filed: 10/10/12 1709 Date of Service: 10/10/12 1639 Status: Signed Top Precipitator Operator: Trevor Escobar DO (Physician) [facility] Service: Infectious Disease Initial Consult Note Date of Admission: 10/03/2012 Reason for Consultation: Staph aureus bacteremia Requesting Physician: Gifty Rangel History Obtained From: patient, chart review CHIEF COMPLAINT: Generalized weakness HISTORY OF PRESENT ILLNESS The patient is a 47 y.o. male with significant past medical history of staph aureus bactere titi in June of this year as well as prior episodes in the remote past who presents with r ecurrent staph aureus bacteremia. The patient's previous episode of infection had been treat ed with 4 weeks of intravenous vancomycin. The plan had been to treat for 6-8 weeks, but in the process of a readmission followed by a discharge, his antibiotics were discontinued afte r approximately 4 weeks. At that time he followed up in the ID clinic, he had been on antibi otics for more than one month and was doing well clinically at that time. He was advised to call promptly with any fevers. On this occasion, the patient presented with generalized weakness and malaise. On admission he had 2 sets of blood cultures which were actually negative. Blood cultures were ef a feve r on October 07 and are both positive for staph aureus, MSSA. He has been treated with various antibiotics over the course of the hospital stay, and at this time remains on vancomycin. M eropenem was added early this morning when he had a brief episode of hypoxemia and hypotensi on following his DANY. The patient has also been on metronidazole throughout the hospital sta y for C. Difficile colitis. The patient reports that he has had persistent left hip pain ever since his episode of bact eremia in June of this year. He has also had numerous falls due to weakness in his legs. The left hip pain has been sufficient that he is unable to try to stand or bear weight. He h as not had any significant shortness of breath or cough recently. He sometimes tries to coug h and clear his throat and notes that he has significant pain in the center of his chest whe n he coughs. He denies any left-sided chest pain. The patient's left arm AV fistula was created in April by Dr. Meyer. This was created usin g [place] vein and does not contain any graft material. REVIEW OF SYSTEMS Review of Systems Complete [...] EGD; Surgeon: John Singleton MD; Location: [facility] ENDOSCOPY; Se rvice: Gastroenterology; Laterality: N/A; Av fistula placement 05/06/2012 Procedure: AV FISTULA; Surgeon: Oskar Meyer MD; Location: [facility] MAIN OR; Service: Vascul ar; Laterality: Left; Left arm possible right Unlisted procedure arthroscopy shoulder rt , ligaments Knee arthroscopy 07/07/2012 Procedure: KNEE - ARTHROSCOPY; Surgeon: Favio Raza MD; Location: [facility] MAIN OR; S ervice: Orthopedics; Laterality: Right; After 1530 Catheter removal 07/07/2012 Procedure: DIALYSIS CATHETER REMOVAL; Surgeon: Oskar Meyer MD; Location: [facility] BEDSIDE WI OCEDURE; Service: General; Laterality: Right; perm cath Dialysis fistula creation 07/07/2012 Procedure: DIALYSIS CATHETER INSERTION; Surgeon: Oskar Meyer MD; Location: [facility] BEDSIDE PROCEDURE; Service: General; Laterality: Left; temporary dialysis catheter Av fistula repair 07/11/2012 Procedure: AV FISTULA GRAFT REPAIR/REVISION; Surgeon: Oskar Meyer MD; Location: [facility] OR; Service: Vascular; Laterality: Left; Superficialization of brachiobasilic fistula and right IJ perm cath insertion Dialysis fistula creation 07/11/2012 Procedure: DIALYSIS CATHETER INSERTION; Surgeon: Oskar Meyer MD; Location: [facility] MAIN OR; Service: Vascular; Laterality: Left; removed dialysis catheter from left neck and placed new on in left chest, attempted in right neck but unable to place Allergies Allergen Reactions Lisinopril Other (See Comments) "makes me sweat and knocked me out" Penicillins Other (See Comments) Unknown 10/08/12: Patient tolerated Ceftriaxone during previous admissions. Prescriptions prior to admission Medication Sig Dispense Refill allopurinol (ZYLOPRIM) 300 MG tablet Take 300 [...] times daily as ne eded. ergocalciferol (DRISDOL) 77971 UNITS capsule Take 1 capsule by mouth once a week. 3 ca psule 0 HYDROcodone-acetaminophen (NORCO) 10-325 MG per tablet Take 1 tablet by mouth every 6 ( six) hours as needed. indomethacin (INDOCIN) 25 MG capsule Take 25 mg by mouth 3 (three) times daily with tarun ls. levothyroxine (SYNTHROID, LEVOTHROID) 50 MCG tablet Take 50 mcg by mouth daily. loperamide (IMODIUM) 2 MG capsule Take 2 mg by mouth 4 (four) times daily as needed. Indications: Diarrhea megestrol (MEGACE) 40 MG/ML suspension Take 200 mg by mouth daily. omeprazole (PRILOSEC) 40 MG capsule Take 40 mg by mouth daily. sodium bicarbonate 650 MG tablet Take 1,300 mg by mouth 2 (two) times daily. albuterol (PROVENTIL) (2.5 MG/3ML) 0.083% nebulizer solution Take 2.5 mg by nebulizatio n every 6 (six) hours as needed. sevelamer (RENVELA) 800 MG tablet Take 800 mg by mouth 3 (three) times daily with meals . Has not started taking yet Scheduled Medications amlodipine 10 mg Oral Nightly [...] vancomycin 750 mg Intravenous Once vitamin B cpdbhov-I-ffeir acid 1 tablet Oral Daily DISCONTD: meropenem 0.5 g Intravenous Q12H Continuous Infusions PRN Medications acetaminophen, acetaminophen, albumin human, albuterol, HYDROcodone-acetaminophen, lidocain e buffered 1%, ondansetron, ondansetron, DISCONTD: aluminum-magnesium hydroxide-simethicone, DISCONTD: midazolam, DISCONTD: polyethylene glycol, DISCONTD: zolpidem Family History Problem Relation Age of Onset [...] BIOLOGICAL; 2 STEP KIDSUNEMPLOYED BEFORE WORKED AT [employer] IN [place] NONE ETOH QUIT 15 YEARS AGODRUGS: quit METHAMPHETAMINES PER P ATIENT after the ARF in mar 2012FATHER HAS COLON CANCER, HEART DISEASEMOTHER 15 YEARS AGONO FH KIDNEY PROBLEMS. PHYSICAL EXAM Vital Signs: BP 126/72 | Pulse 86 | Temp(Src) 98.5 F (36.9 C) (Oral) | Resp 14 | Ht 1.702 m (5' 7") | Wt 68.5 kg (151 lb 0.2 oz) | BMI 23.65 kg/m2 | SpO2 99% Temp (24hrs), Av.4 F (37.4 C), Min:98.3 F (36.8 C), Max:100.9 F (38.3 C) Physical Exam Constitutional: The patient is [...] motor or sensory function Skin: There are no rashes of clinical significance. There are no ulcerations or significant wounds. Left arm AV fistula has a palpable thrill, no erythema or induration. Extremities: There is no clubbing, cyanosis, or [...] 10/10/2012 ALT 9* 10/10/2012 EGFR 13* 10/10/2012 Microbiology: Blood cultures on October 04 negative x2. Blood cultures on October 07 positive i n both sets for MSSA, no repeats since that time. Medical imaging: Chest x-rays over the course of this hospital stay have been viewed and PA CS and have shown progressive infiltrate in the left lung base consistent with pneumonia and possible small parapneumonic effusion, new compared to previous studies from July year. Transesophageal echocardiogram yesterday did not show any evidence of vegetations but did s how mild to moderate mitral regurgitation. Previous transesophageal echocardiogram in showed only trace mitral regurgitation. Medical record review: I have reviewed the patient's admission history and physical as well as progress notes from the current hospital stay. Emergency department notes and followup n otes from July of this year have also been reviewed. Much of this information is summari zed above in history of present illness. PROBLEM LIST Principal Problem: *Adult failure to thrive Active Problems: Vitamin d deficiency Secondary hyperparathyroidism (of renal origin) Hypothyroidism Hypoalbuminemia Diabetes mellitus with ESRD (end-stage renal disease) Obesity (BMI 30-39.9) HTN (hypertension) ESRD (end stage renal disease) on dialysis Anemia of chronic kidney failure Gout Hyponatremia PUD (peptic ulcer disease) Weakness generalized C. difficile colitis Fever Bacteremia Staphylococcus aureus bacteremia with sepsis ASSESSMENT & PLAN Patient Active Hospital Problem List: Adult failure to thrive (10/03/2012) Suspect secondary to chronic staph aureus infection, source not yet identified. He has johnson d recurrent episodes of bacteremia in March 2012, April 2012 (despite being on vancomyc in), June 2012, and again during this hospitalization. He has also been a mobile due to s evere left hip pain. His overall prognosis is poor unless a source of fever current bacterem ias can be found and eliminated. ESRD (end stage renal disease) on dialysis (04/30/2012) Vancomycin has been dosed accordingly. C. difficile colitis (10/05/2012) Symptoms resolved with metronidazole, currently treatment day #6 of 10. Fever (10/07/2012) Suspect secondary to staph aureus bacteremia. Meropenem can be discontinued. Staphylococcus aureus bacteremia with sepsis (10/09/2012) The patient has had 4 episodes of staph aureus bacteremia in the past 6 months as outline d above. Transesophageal echocardiogram does not show direct evidence of endocarditis, but d oes show increased mitral regurgitation. Having said that, the degree of mitral regurgitatio n is not what would be expected after 6 months of inadequately treated endocarditis. The lef t AV fistula is negative and therefore unlikely to be chronically infected. He does have a l eft lower lobe pneumonia at this time which could be a source of a new bacteremia although I have a difficult time believing that the frequent recurrences are not related. His left hip remains painful. Previous MRI in June had shown myositis about the hip but no evidence o f septic joint or osteomyelitis. I'm going to obtain a plain film. If this is unrevealing, w e could consider noncontrast MRI or bone scan. Code Status: Full Code Primary Care Physician: [facility] Thank you for allowing me to participate in the care of this patient. I will continue to follow with you. TREVOR ESCOBAR, DO 10/10/2012 Cosmo Lang MD - 10/05 12:58 PM PDT Consult* by Cosmo Soria MD at 10/05/12 4313 Author: Cosmo Soria MD Service: Nephrology Author Type: Physician Filed: 10/06/12 0362 Date of Service: 10/05/12 5149 Status: Signed Top Precipitator Operator: Cosmo Soria MD (Physician) [facility] Service: NEPHROLOGY CONSULT Note Carol Potter 47 y.o. [id number] male PCP is [facility] Day: LOS: 2 days Date of Admission: 10/05/2012 Requesting Physician: Dr. Mcmahon Reason for Admission: C. Difficile colitis Reason for consult: ESRD management History Obtained From: patient, chart review CHIEF COMPLAINT: I had diarrhea HISTORY OF PRESENT ILLNESS: Carol Potter is a 47 y.o. male with ESRD secondary to Biopsy-proven Diabetic nephropathy who is dialyzed Saturday and Saturday at [facility] via Left upper extremity brachio cephalic fistula Who was transferred from [facility] in [place], [place] with a chief complaint that he had generalized weakness and unable to walk on his feet espec ially after hemodialysis session On Saturday. He complained of diarrhea for the past 4-5 days with progressively increasing weakness. He was going to the bathroom more than 5 times a day and he also had associated nausea. There was no vomiting, cramping abdominal pain, or any fevers. He also complained of signif icant loss of appetite and had apparently lost more than 40 pounds over the past few months. He was admitted with the provisional diagnosis of C. Difficile colitis which has subsequent ly been proven to be correct. He has been hospitalized at least twice over the past 2-3 months and has been treated with IV antibiotics for endocarditis in the past. Nephrology was consulted for evaluation and management of ESRD management. Carol Potter is a 47 y.o. male with Past Medical History Diagnosis Date Hyperlipidemia Hypertension [...] EGD; Surgeon: John Singleton MD; Location: [facility] ENDOSCOPY; Se rvice: Gastroenterology; Laterality: N/A; Av fistula placement 05/06/2012 Procedure: AV FISTULA; Surgeon: Oskar Meyer MD; Location: [facility] OR; Service: Vascul ar; Laterality: Left; Left arm possible right Unlisted procedure arthroscopy shoulder rt , ligaments Knee arthroscopy 07/07/2012 Procedure: KNEE - ARTHROSCOPY; Surgeon: Favio Raza MD; Location: [facility] MAIN OR; ervice: Orthopedics; Laterality: Right; After 1530 Catheter removal 07/07/2012 Procedure: DIALYSIS CATHETER REMOVAL; Surgeon: Oskar Meyer MD; Location: [facility] BEDSIDE WI OCEDURE; Service: General; Laterality: Right; perm cath Dialysis fistula creation 07/07/2012 Procedure: DIALYSIS CATHETER INSERTION; Surgeon: Oskar Meyer MD; Location: [facility] BEDSIDE PROCEDURE; Service: General; Laterality: Left; temporary dialysis catheter Av fistula repair 07/11/2012 Procedure: AV FISTULA GRAFT REPAIR/REVISION; Surgeon: Oskar Meyer MD; Location: [facility] OR; Service: Vascular; Laterality: Left; Superficialization of brachiobasilic fistula and right IJ perm cath insertion Dialysis fistula creation 07/11/2012 Procedure: DIALYSIS CATHETER INSERTION; Surgeon: Oskar Meyer MD; Location: [facility] MA[facility] OR; Service: Vascular; Laterality: Left; removed dialysis catheter from left neck and placed new on in left chest, attempted in right neck but unable to place family history includes Cancer in his father; Diabetes in his father; and Heart disease in his father and mother. reports that he has never smoked. He has never used smokeless tobacco. He reports that he does not drink alcohol or use illicit drugs. Previous history summarized as above. Prior lab data and imaging reviewed. ROS: Review of systems is as per history of present illness. Otherwise a 12 organ system review of systems was done and is negative. Examination: Constitutional: Alert awake and oriented. He is lying comfortably in bed and appears emaci ated. HEENT: no JVD, non icteric sclera. Cardiovascular: [...] Hemodialysis access: Left upper extremity brachiocephalic fistula Prior to Admission medications Medication Sig Start Date End Date Taking? Authorizing Provider albuterol (PROVENTIL) (2.5 MG/3ML) 0.083% nebulizer solution Take 2.5 mg by nebulization ev keira 6 (six) hours as needed. Yes Historical Provider allopurinol (ZYLOPRIM) 300 MG tablet Take 300 mg by mouth daily. Yes Historical Provider amlodipine (NORVASC) 10 MG tablet Take 10 mg by mouth nightly. 04/15/12 04/15/13 Yes Vikram Chandra MD b complex-vitamin c-folic acid (NEPHRO-THU) 0.8 [...] daily as needed . Yes Historical Provider ergocalciferol (DRISDOL) 75997 UNITS capsule Take 1 capsule by mouth once a week. 04/15/12 04/15/13 Yes Vikram Chandra MD HYDROcodone-acetaminophen (NORCO) 10-325 MG per tablet Take 1 tablet by mouth every 6 (six) hours as needed. Yes Historical Provider levothyroxine (SYNTHROID, LEVOTHROID) 50 MCG tablet Take 50 mcg by mouth daily. Yes His torical Provider megestrol (MEGACE) 40 MG/ML suspension Take 200 mg by mouth daily. Yes Historical Provide r omeprazole (PRILOSEC) 40 MG capsule Take 40 mg by mouth daily. Yes Historical Provider sevelamer (RENVELA) 800 MG tablet Take 800 mg by mouth 3 (three) times daily with meals. Johnson s not started taking yet Historical Provider Scheduled Medications allopurinol 300 mg Oral Daily amlodipine 10 mg Oral Nightly carvedilol 3.125 mg Oral BID WC Cholecalciferol 1 tablet Oral Daily citalopram 20 mg Oral Nightly ergocalciferol 50,000 Units Oral Weekly heparin (porcine) 5,000 Units Subcutaneous Q8H levothyroxine 50 mcg Oral Daily metroNIDAZOLE 500 mg Oral Q8H ALYSSA omeprazole 40 mg Oral Daily sevelamer 800 mg Oral TID WC vitamin B ixrlnwd-N-rsbof acid 1 tablet Oral Daily Continuous Infusions PRN Medications acetaminophen, acetaminophen, albuterol, aluminum-magnesium hydroxide-simethicone, cycloben zaprine, hydrALAZINE, HYDROcodone-acetaminophen, HYDROmorphone, HYDROmorphone, LORazepam, LO Razepam, ondansetron, ondansetron, polyethylene glycol, zolpidem Allergy: Allergies Allergen Reactions Lisinopril Other (See Comments) "makes me sweat and knocked me out" Penicillins Other (See Comments) unknown Lab Results Component Value Date BUN 22 10/05/2012 CREATININE 4.22* 10/05/2012 EGFR 16* 10/05/2012 NA 129* 10/05/2012 K 4.6 10/05/2012 CL 91* 10/05/2012 CO2 27 10/05/2012 CA 7.7* 10/05/2012 PHOS 3.8 10/05/2012 MG 2.1 10/05/2012 ALB 1.5* 10/05/2012 HGB 9.3* 10/05/2012 Recent Results (from the past 24 hour(s)) POCT GLUCOSE Collection Time 10/04/12 3:45 PM Component Value Range GLUCOSE,POC SCREEN 184 (*) 65 - 99 mg/dL BLOOD CULTURE, SET 1 Collection Time 10/04/12 5:55 PM Component Value Range Specimen Description BLOOD, PERIPHERAL DRAW Specimen Description Value: Testing performed at [facility];[address] [place] [id number] SPECIAL REQUESTS L HAND SPECIAL REQUESTS Value: Testing performed at [facility];[address] [place] [address];[place] [address] CULTURE NO GROWTH AT THIS TIME CULTURE Value: Testing performed at [facility];[address] [place] [phone] REPORT STATUS PENDING BLOOD CULTURE, SET 2 Collection Time 10/04/12 5:59 PM Component Value Range Specimen Description BLOOD, PERIPHERAL DRAW Specimen Description Value: Testing performed at [facility];[address] [place] [address];[place] [address] SPECIAL REQUESTS L ARM SPECIAL REQUESTS Value: Testing performed at [facility];[address] [place] [phone] CULTURE NO GROWTH AT THIS TIME CULTURE Value: Testing performed at [facility];[address] [place] [phone] REPORT STATUS PENDING POCT GLUCOSE Collection Time 10/04/12 9:57 PM Component Value Range GLUCOSE,POC SCREEN 214 (*) 65 - 99 mg/dL CBC W/AUTO DIFF (REFLEX TO MANUAL) Collection Time 10/05/12 4:00 AM Component Value Range WBC 7.9 3.8 - 11.0 K/uL RBC 3.41 (*) 4.20 - 5.70 M/uL HGB 9.3 (*) 13.2 - 17.0 g/dL HCT 28.6 (*) 39.0 - 50.0 % MCV 83.9 80.0 - 100.0 fl MCH 27.3 27.0 - 34.0 pg MCHC 32.5 32.0 - 35.5 g/dL RDW SD 48.1 37 - 53 fl PLT 378 150 - 400 K/uL MPV 7.0 DIFF TYPE AUTOMATED NEUTROPHILS 74.7 40 - 75 % LYMPHOCYTES 10.1 (*) 15 - 48 % MONOCYTES 9.2 0 - 12 % EOSINOPHILS 5.6 0 - 7 % BASOPHILS 0.4 0 - 2 % NEUTROPHILS ABS 5.9 1.9 - 7.4 K/uL LYMPHOCYTES ABS 0.8 (*) 1.0 - 3.9 K/uL MONOCYTES ABS 0.7 0 - 0.8 K/uL EOSINOPHILS ABS 0.4 0 - 0.5 K/uL BASOPHILS ABS 0.0 0 - 0.1 K/uL COMPREHENSIVE METABOLIC PANEL Collection Time 10/05/12 4:00 AM Component Value Range SODIUM 129 (*) 135 - 143 mmol/L POTASSIUM 4.6 3.5 - 4.9 mmol/L CHLORIDE 91 (*) 99 - 109 mmol/L CO2 27 23 - 32 mmol/L ANION GAP AGAP 15 5 - 20 mmol/L GLUCOSE 83 65 - 99 mg/dL BUN 22 8 - 25 mg/dL CREATININE 4.22 (*) 0.70 - 1.30 mg/dL BUN/CREAT 5 CALCIUM 7.7 (*) 8.5 - 10.2 mg/dL TOTAL PROTEIN 6.9 6.3 - 8.2 g/dL Albumin 1.5 (*) 3.6 - 5.0 g/dL GLOBULIN 5.4 (*) 1.3 - 4.9 g/dL A/G 0.3 (*) 1.0 - 2.4 TBIL 0.5 0.1 - 1.5 mg/dL ALK PHOS 91 35 - 115 U/L AST 36 10 - 45 U/L ALT 12 10 - 65 U/L EGFR 16 (*) >60 mL/min/1.73m2 MAGNESIUM Collection Time 10/05/12 4:00 AM Component Value Range MAGNESIUM 2.1 1.7 - 2.4 mg/dL PHOSPHOROUS Collection Time 10/05/12 4:00 AM Component Value Range PHOSPHORUS 3.8 2.3 - 4.8 mg/dL POCT GLUCOSE Collection Time 10/05/12 6:08 AM Component Value Range GLUCOSE,POC SCREEN 94 65 - 99 mg/dL Vital Signs: BP 107/59 | Pulse 76 | Temp(Src) 97.9 F (36.6 C) (Oral) | Resp 18 | Ht 1.702 m (5' 7") | Wt 67.5 kg (148 lb 13 oz) | BMI 23.31 kg/m2 | SpO2 98% I&O Detailed Table: I/O last 3 completed shifts: In: 635 [P.O.:635] Out: 700 [Urine:700] Weight change: Patient's old records and labs were reviewed in detail and summarized. PROBLEM LIST Principal Problem: *Adult failure to thrive Active Problems: Vitamin d deficiency Secondary hyperparathyroidism (of renal origin) Hypoalbuminemia Diabetes mellitus with ESRD (end-stage renal disease) ESRD (end stage renal disease) on dialysis Hyponatremia Hypothyroidism Obesity (BMI 30-39.9) HTN (hypertension) Anemia of chronic kidney failure Gout PUD (peptic ulcer disease) Weakness generalized Assessment & Recommendations Carol Potter is a 47 y.o. male with ESRD secondary to biopsy proven Diabetic nephropathy who i s dialyzed Saturday and Saturday at [facility] via Left upper extremity b rachio cephalic fistula (last HD was Saturday10/03/12). 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 Timmons. He is now Admitted with C. Difficile colitis and failure to thrive. I will continue maintenance HD. Records from [facility] Need to be reviewed. The unit is closed today. I will continue the usual prescription. Access: Access looks OK without any evidence of infection. HTN: BP is reasonably controlled with current medications and dietary salt restriction. We will try to use UF to achieve DW and avoid or minimize use of antihypertensive medicatio ns. BP Readings from Last 3 Encounters: 10/05/12 107/59 09/11/12 157/82 09/02/12 136/60 Volume management: Volume status appears OK with no edema. I will perform UF to achieve normovolemia. He seems to be losing weight and I would need to check his dry weight. Wt Readings from Last 3 Encounters: 10/04/12 67.5 kg (148 lb 13 oz) 09/11/12 73.8 kg (162 lb 11.2 oz) 09/02/12 79.833 kg (176 lb) Anemia of chronic renal disease Iron work up shows Adequate iron stores. I would monitor Hb to keep it around 10 (using ANAYA and Fe as needed). H&H: Lab Results Component Value Date HGB 9.3* 10/05/2012 HCT 28.6* 10/05/2012 FERRITIN: Lab Results Component Value Date FERRITIN [...] binders for now. 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 Lab Results Component Value Date URICACID 8.2 04/02/2012 Lab Results Component Value Date CA 7.7* 10/05/2012 CA 8.1* 10/04/2012 CA 7.8* 10/03/2012 CA 6.1* 04/02/2012 Lab Results Component Value Date PHOS 3.8 10/05/2012 PHOS 2.7 10/04/2012 PHOS 2.3 10/03/2012 Lab Results Component Value Date ALB 1.5* 10/05/2012 ALB 1.6* 10/04/2012 ALB 1.7* 10/03/2012 Co2: Lab Results Component Value Date CO2 27 10/05/2012 Lab Results Component Value Date MG 2.1 10/05/2012 MG 2.1 10/04/2012 MG 1.6* 10/03/2012 Lab Results Component Value Date PTHINTACT 255* 04/02/2012 Medication management: Metronidazole does not need any adjustment for level of kidney function. Allopurinol does would need to be reduced for the level of kidney function 100 mg once a da y Carol Potter should be on a 2 [...] CMP should be done (including Mg, PO4). Plan of care was discussed with Dr. Jeffrey and total time spent was 80 minutes (more than 50% of which was spent in explanation of diagnosis, prognosis, treatment options and coordinati ng care). I thank Dr Jeffrey for giving me the opportunity to take part in the care of Carol Potter with mu ltiple complex medical problems. Do not hesitate to contact me if you have any questions. COSMO SORIA MD 10/05/2012 documented in this en counter ED Notes Conversion Transaction, Provider Unknown - 10/03/2012 10:23 PM PDTFormatting of this note m ight be different from the original. ED Notes by Carola Montoya RN at 10/03/122222 Author: Carola Montoya RN Service: (none) Author Type: Registered Nurse Filed: 10/03/122226 Date of Service: 10/03/122222 Status: Signed Top Precipitator Operator: Carola Montoya RN (Registered Nurse) TC from pt's niece, who inquires after pt's condition. Informed pt is stable, alert and bernard carlton to staff. Advised to call back in the AM to obtain pt's room number and to speak to pt. Carola Montoya RN 10/03/122226 onver quique Transaction, Provider Unknown - 10/03/2012 10:12 PM PDT ED Notes by Carola Montoya RN at 10/03/122211 Author: Carola Montoya RN Service: (none) Author Type: Registered Nurse Filed: 10/03/122213 Date of Service: 10/03/122211 Status: Signed Top Precipitator Operator: Carola Montoya RN (Registered Nurse) Back from radiology, continues ot c/o pain in neck and left leg. Will notify Dr. Parker rousseau ask for pt's routine pain medication when able. Carola Montoya RN 10/03/122213 rady Manriquez DO - 10/03/2012 9:05 PM PDTFormatting of this note might be different from the or iginal. ED Provider Notes by Brady Canales DO at 10/03/122104 Author: Brady Canales DO Service: (none) Author Type: Physician Filed: 10/08/12 0416 Date of Service: 10/03/122104 Status: Signed Top Precipitator Operator: Brady Canales DO (Physician) [facility] Department of Emergency Medicine Pre-arrival Provider to Provider Row Name 10/03/12 1738 Pre-arrival Provider Pre-arrival Provider Another ED Provider Name Dr. Tavera ([facility]) Pertinent History and Concerns recent 10 lb weight loss, cannot walk over last 2 days, HEAD CT negative, CXR nothing acute, EKG nothing acute, failure to thrive, DDRF (Dr. Timmons) MWF Relevant Labs or Studies K 3.4 Relevant Medications No new medications Current Reported Vital Signs wnl 140/70, 87, 14, 98%, afebrile Currently Involved Consultants at [facility] Likely need rehab services and will likely require dilaysis while admitted 9:06 PM 10/03/2012 History of Present Illness Patient Identification Carol Potter is a 47 y.o. male. Patient information was obtained from patient and EMS personnel. History/Exam limitations: none. Patient presented to the Emergency Department by: Ambulance Primary care physician: [facility] Chief Complaint Chief Complaint Patient presents with Fatigue chronic, worsening generalized weakness Failure To Thrive stopped eating normally after falling earlier this week The patient presents with weight loss. Onset of symptoms was one week ago, with a constant course since that time. The patient states he normally weighs 190, today after dialysis he weighed 149 and rated as moderate. Patient also complains of weakness described as inability to walk x1 day, decreased appetite x3 days, and chronic neck and upper back pain since fall . The pt states there are no exacerbating or alleviating factors. The pt states he fell Tu day. He reports he produces minimal urine. Pt denies fever/chills, headache, facial pain, rh inorrhea, sore throat, chest pain, dyspnea, abdominal pain, N/V, bowel or bladder habit perez ges, skin rash, paresthesias, lymphadenopathy, or new bruising. Patient has been evaluated at [facility] and transferred here. Past Medical History Diagnosis Date Hyperlipidemia Hypertension [...] dependence, continuous 04/02/2012 Chronic kidney disease dialysis Past Surgical History Procedure Date Colonoscopy with egd 05/01/2012 Procedure: COLONOSCOPY W/ EGD; Surgeon: John Singleton MD; Location: [facility] ENDOSCOPY; Se rvice: Gastroenterology; Laterality: N/A; Av fistula placement 05/06/2012 Procedure: AV FISTULA; Surgeon: Oskar Meyer MD; Location: [facility] OR; Service: Vascul ar; Laterality: Left; Left arm possible right Unlisted procedure arthroscopy shoulder rt , ligaments Knee arthroscopy 07/07/2012 Procedure: KNEE - ARTHROSCOPY; Surgeon: Favio Raza MD; Location: [facility] MAIN OR; ervice: Orthopedics; Laterality: Right; After 1530 Catheter removal 07/07/2012 Procedure: DIALYSIS CATHETER REMOVAL; Surgeon: Oskar Meyer MD; Location: [facility] BEDSIDE WI OCEDURE; Service: General; Laterality: Right; perm cath Dialysis fistula creation 07/07/2012 Procedure: DIALYSIS CATHETER INSERTION; Surgeon: Oskar Meyer MD; Location: [facility] BEDSIDE PROCEDURE; Service: General; Laterality: Left; temporary dialysis catheter Av fistula repair 07/11/2012 Procedure: AV FISTULA GRAFT REPAIR/REVISION; Surgeon: Oskar Meyer MD; Location: [facility] OR; Service: Vascular; Laterality: Left; Superficialization of brachiobasilic fistula and right IJ perm cath insertion Dialysis fistula creation 07/11/2012 Procedure: DIALYSIS CATHETER INSERTION; Surgeon: Oskar Meyer MD; Location: [facility] OR; Service: Vascular; Laterality: Left; removed dialysis catheter from left neck and placed new on in left chest, attempted in right neck but unable to place Prior to Admission medications Medication Sig Start Date End Date Taking? Authorizing Provider albuterol (PROVENTIL) (2.5 MG/3ML) 0.083% nebulizer solution Take 2.5 mg by nebulization ev keira 6 (six) hours as needed. Historical Provider amlodipine (NORVASC) 10 MG tablet Take 10 mg by mouth nightly. 04/15/12 04/15/13 Vikram thompson MD b complex-vitamin c-folic acid (NEPHRO-THU) 0.8 MG TABS Take 1 tablet by mouth daily. Historical Provider Cholecalciferol 2000 UNITS TABS Take 1 tablet by mouth daily. Historical Provider citalopram (CELEXA) 20 MG tablet Take 20 mg by mouth nightly. Historical Provider ergocalciferol (DRISDOL) 93770 UNITS capsule Take 1 capsule by mouth once a week. 04/15/12 04/15/13 Vikram Chandra MD HYDROcodone-acetaminophen (NORCO) 10-325 MG per tablet Take 1 tablet by mouth every 6 (six) hours as needed. Historical Provider levothyroxine (SYNTHROID, LEVOTHROID) 50 MCG tablet Take 50 mcg by mouth daily. Histor ical Provider omeprazole (PRILOSEC) 40 MG capsule Take 40 mg by mouth daily. Historical Provider sevelamer (RENVELA) 800 MG tablet Take 800 mg by mouth 3 (three) times daily with meals. Historical Provider Allergies Allergen Reactions Lisinopril Other (See [...] BIOLOGICAL; 2 STEP KIDSUNEMPLOYED BEFORE WORKED AT [employer] [place] [employer] [email or web address] NONE ETOH QUIT 15 YEARS AGODRUGS: quit METHAMPHETAMINES PER P ATIENT after the ARF in mar 2012FATHER HAS COLON CANCER, HEART DISEASEMOTHER 15 YEARS AGONO FH KIDNEY PROBLEMS. Family History Problem Relation Age of Onset Heart disease Mother Heart disease Father Diabetes Father Cancer Father colon cancer Review of Systems Constitutional: Negative for: fever, chills Positive for: weight loss Eyes: Negative for: decreased vision or irritated eyes Nose: Negative for: nosebleed Throat: Negative for: sore throat or dysphagia Cardiovascular/Respiratory: Negative for: chest pain, shortness of breath, cough Gastrointestinal: Negative for: abdominal pain, nausea/vomiting, diarrhea, constipation, b lack or bloody stools Positive for: decreased appetite Genitourinary: Negative for: dysuria, hematuria, or increased urinary frequency Musculoskeletal: Positive for: chronic neck and upper back pain Skin: Negative for: laceration or lesion Neuro and psych: Negative for: fainting, head injury, seizure Positive for: weakness and inability to walk Endocrine/Heme/Lymph: Negative for: swollen lymph nodes, easy bruising All other systems were reviewed and are subjectively reported as negative. Physical Exam BP 146/79 | Pulse 86 | Temp 98.5 F (36.9 C) | Resp 20 | SpO2 99% Vitals: Hypertensive, otherwise normal. Pulse Oximetry Interpretation: Normal General: Alert, in no apparent distress Eyes: Normal inspection, pupils equal and round, non-icteric ENT: Ears normal Nose normal Pharynx normal Moist mucous membranes, pink appearing Neck: Normal inspection Supple No lymphadenopathy CVS: Rate and rhythm normal No murmurs Respiratory: Breath sounds normal bilaterally, normal chest rise and fall, no obvious traum a Abdomen: Soft, non-tender, non-distended Bowel sounds present No guarding or rebound Back: Moves without difficulty Extremities: Moves all extremities No peripheral edema, no calf tenderness to compression Distal pulses palpable in all extremities Skin: Color normal Warm and dry No rash Neuro: No gross motor/sensory deficits noted Medical Decision Making and Emergency Department Course ED Department Course 9:06 PM. Patient presents with weight loss, weakness, and chronic neck and upper back pain. CXR completed at [facility] which showed no acute abnormalities. After gathering and discu ssing HPI, ROS, PMHX, SurgHx, FmHx, and physically examining the patient I have discussed di fferential considerations including, but not limited to, weight loss, neurologic injury, francis ctrolyte disorder, dehydration, myopathy, psychogenic, cancer, vs other. I have also discus sed the testing course to determine potential etiology and determine whether the patient emily l be safe for outpatient continuing evaluation or will require admission. Pt indicates unde rstanding of expected course of ED evaluation and care. 9:30 PM. Per tech, on road test pt was unable to bear weight for greater than 3 seconds ap peared to be symmetric weakness in bilateral lower extremities. 10:02 PM. Labs and urine studies reviewed. UA reveals trace blood, elevated pH, and prote in. CBC reveals anemia, low HGB, low HCT, mildly low MCH, low lymphocytes, and mildly low l ymphocytes absolute. Elevated neutrophils also noted, otherwise unremarkable. Urine micro unremarkable. Phosphorus WNL. Magnesium mildly low. Prealbumin low. CMP reveals low chlo ride, mildly elevated CO2, low BUN, elevated creatinine, hypocalcemia, low albumin, low A/G and EGFR, and elevated globulin. 10:19 PM. Cervical spine XR reviewed. No fx or dislocation. Will admit the pt into the h ospital. 10:32 PM. Discussed the case with Dr. Oliveros (hospitalist) who accepts the pt for admission . 10:44 PM. Dilaudid IV given. 11:27 PM. Magnesium sulfate IV given. 11:31 PM. Hydralazine IV given. Records Reviewed Old medical records. Nursing notes. Prior ED visits for unrelated complaints. Laboratory Evaluation Results Procedure Component Value Ref Range Date/Time Complete Metabolic Panel [[id number]] (Abnormal) Collected:10/03/122116 Order Status:Completed Updated:10/03/122201 Specimen Information:Blood SODIUM 136 135 - 143 mmol/L POTASSIUM 3.6 3.5 - 4.9 mmol/L CHLORIDE 95 (L) 99 - 109 mmol/L CO2 35 (H) 23 - 32 mmol/L ANION GAP AGAP 10 5 - 20 mmol/L GLUCOSE 83 65 - 99 mg/dL BUN 6 (L) 8 - 25 mg/dL CREATININE 2.31 (H) 0.70 - 1.30 mg/dL BUN/CREAT 3 CALCIUM 7.8 (L) 8.5 - 10.2 mg/dL TOTAL PROTEIN 7.4 6.3 - 8.2 g/dL Albumin 1.7 (L) 3.6 - 5.0 g/dL GLOBULIN 5.7 (H) 1.3 - 4.9 g/dL A/G 0.3 (L) 1.0 - 2.4 TBIL 0.5 0.1 - 1.5 mg/dL ALK PHOS 105 35 - 115 U/L AST 17 10 - 45 U/L ALT 12 10 - 65 U/L EGFR 32 (L) >60 mL/min/1.73m2 Prealbumin [[id number]] (Abnormal) Collected:10/03/122116 Order Status:Completed Updated:10/03/122201 Specimen Information:Blood PREALBUMIN 7.9 (L) 20.0 - 40.0 mg/dL Magnesium [[id number]] (Abnormal) Collected:10/03/122116 Order Status:Completed Updated:10/03/122201 Specimen Information:Blood MAGNESIUM 1.6 (L) 1.7 - 2.4 mg/dL Phosphorus [[id number]] Collected:10/03/122116 Order Status:Completed Updated:10/03/122201 Specimen Information:Blood PHOSPHORUS 2.3 2.3 - 4.8 mg/dL Urine Microscopic [[id number]] Collected:10/03/122124 Order Status:Completed Updated:10/03/122156 Specimen Information:Urine / Urine, Clean Catch WBC 1-5 0 - 5 /hpf RBC 6-10 0 - 5 /hpf EPITHELIAL 11-15 /lpf BACTERIA NONE SEEN NONE SEEN Casts 1-5 /lpf CBC w Auto Diff [[id number]] (Abnormal) Collected:10/03/122116 Order Status:Completed Updated:10/03/122141 Specimen Information:Blood WBC 7.9 3.8 - 11.0 K/uL RBC 3.93 (L) 4.20 - 5.70 M/uL HGB 10.2 (L) 13.2 - 17.0 g/dL HCT 32.1 (L) 39.0 - 50.0 % MCV 81.7 80.0 - 100.0 fl MCH 26.0 (L) 27.0 - 34.0 pg MCHC 31.9 (L) 32.0 - 35.5 g/dL RDW SD 48.6 37 - 53 fl PLT 355 150 - 400 K/uL MPV 6.8 fl DIFF TYPE AUTOMATED NEUTROPHILS 80.5 (H) 40 - 75 % LYMPHOCYTES 8.1 (L) 15 - 48 % MONOCYTES 7.7 0 - 12 % EOSINOPHILS 2.9 0 - 7 % BASOPHILS 0.8 0 - 2 % NEUTROPHILS ABS 6.4 1.9 - 7.4 K/uL LYMPHOCYTES ABS 0.6 (L) 1.0 - 3.9 K/uL MONOCYTES ABS 0.6 0 - 0.8 K/uL EOSINOPHILS ABS 0.2 0 - 0.5 K/uL BASOPHILS ABS 0.1 0 - 0.1 K/uL POC clinitek 10 [[id number]] (Abnormal) Collected:10/03/122130 Order Status:Completed Updated:10/03/122134 Color, UA YELLOW Clarity, UA CLEAR Glucose, UA NEGATIVE NEGATIVE mg/dL Bilirubin, UA NEGATIVE NEGATIVE Ketones, UA NEGATIVE NEGATIVE mg/dL Spec Grav, UA 1.015 1.001 - 1.035 Blood, UA TRACE (A) NEGATIVE pH, UA >8.9 (H) 4.6 - 8.0 Protein, UA >299 (A) NEGATIVE mg/dL Urobilinogen, UA 0.2 <1.1 mg/dL Nitrite, UA NEGATIVE NEGATIVE WBC, UA NEGATIVE NEGATIVE Radiology and EKG Evaluation Imaging Results XR Cervical Spine 3 View (Preliminary result) Result time:10/03/122218 ED Interpretation Documented by Brady Canales DO (10/03/122218, [facility] Emergency Department, Emergency Medicine) 3 view cervical spine. Prior films for comparison: None. Good technique. No fracture, no dislocation. This ED initial read occurred during the ED course and management. The ED interpretation at the time the patient was being clinically managed, and prior to the radiology final read interpretation was as above. The imaging was independently viewed by me and interpreted contemporaneously by me. Brady Canales D.O. EKG Interpretation: Time: 21:49 Rate: 85 Rhythm: Sinus [place]: Left BASSAM: Normal QRS: Incomplete RBBB ST waves: No ST-T wave elevations and depressions Other: Inverted T wave in V2 Prior EKG for comparison: September 03, 2012 no acute abnormality Acute ischemia suggested: No Independently reviewed and interpreted contemporaneously by myself. Brady Canales D.O. Labs and imaging reviewed. All pertinent positives noted and addressed. Results have been discussed with the patient. ED Diagnoses Final diagnoses Adult failure to thrive End stage renal failure on dialysis Weakness generalized Incomplete RBBB Hypertension Disposition: ED Disposition Admit/Observation Requested Unit:: Acute Care Bed request special needs: None Diagnosis?: Failure to thrive, DDRF, generalized weakness Additional Documentation Procedures Attending Note: Documentation assistance provided by Sindi Sanchez (Scribe). Information recorded by the scribe has been reviewed and validated by me. Ana post with its contents. DO Brady Estes DO 10/08/126 onversion Transactio n, Provider Unknown - 10/03/2012 9:04 PM PDT ED Notes by Carola Montoya RN at 10/03/122103 Author: Carola Montoya RN Service: (none) Author Type: Registered Nurse Filed: 10/03/122103 Date of Service: 10/03/122103 Status: Signed Top Precipitator Operator: Carola Montoya RN (Registered Nurse) Bed:09
Expected date:
Expected time:
Means of arrival:
Comments:
onver quique Transaction, Provider Unknown - 10/03/2012 8:36 PM PDT ED Notes by Gerardo De La Vega RN at 10/03/122035 Author: Gerardo De La Vega RN Service: (none) Author Type: Registered Nurse Filed: 10/03/122046 Date of Service: 10/03/122035 Status: Signed Top Precipitator Operator: Gerardo De La Vega RN (Registered Nurse) EMS report. 47 y.o. male with transfer from [facility]. BP 138/76, HR 85, RR 16, O2 sat 98% . ETA 40 min. Gerardo De La Vega RN 10/03/122046 onver quique Transaction, Provider Unknown - 10/03/2012 7:20 PM PDT ED Notes by Gerardo De La Vega RN at 10/03/121919 Author: Gerardo De La Vega RN Service: (none) Author Type: Registered Nurse Filed: 10/03/121945 Date of Service: 10/03/121919 Status: Signed Top Precipitator Operator: Gerardo De La Vega RN (Registered Nurse) Nurse report. 47 y.o. male with c/o failure to thrive, needs full assist. Has IV. Has histo ry of renal failure, had dialysis today. BP 143/76, HR 84, RR 16, O2 sat 96% RA, pain 8/10. ETA 2029. Gerardo De La Vega RN 10/03/121945 docume nted in this encounter Plan of [...] Conversion - 02/13/2019 4:30 PM PDT CAROL TINOCO HIP LEFT WO | | CONTRAST10/12/2012 10:22 [...] Palm Conversion - 02/13/2019 4:30 PM PDT History: [...] | Testing performed | | | at [facility];[address] [place] [address];[place] [address] SPECIAL REQUESTS | | | RAC | | | Testing performed at [facility];[address] [place] [address];[place] [address] | | | CULTURE NO GROWTH IN 5 DAYS. | | | Testing | | | performed at [facility];[address] [place] [address];[place] [address] REPORT STATUS | | | 10/16/2012 FINAL [...] | Testing performed | | | at [facility];[address] [place] [address];[place] [address] SPECIAL REQUESTS | | | RAC | | | Testing performed at [facility];[address] [place] [address];[place] [address] | | | CULTURE NO GROWTH IN 5 DAYS. | | | Testing | | | performed at [facility];[address] [facility];[place] [address] REPORT STATUS | | | 10/16/2012 FINAL [...] 45 %. 3. No vegetation visualized. 4. Jtep-bz-eesbsapr | | | mitral regurgitation is present. [...] vegetation visualized. Mitral | | | Valve: Kwgw-li-vwnyaovx mitral regurgitation is present. Tricuspid | | [...] pericardial effusion | | | present. MEASUREMENTS Grader Green Meat: CM | | | Authenticated by: Beny Valencia MD Report Date/Time: 10-09-2012 | | | 18:41:13 | | + + + + + | Procedure Note | + + | Néstor, Rad Conversion - 02/13/2019 4:30 PM PDT Patient Name: Mohinder POTTER of | | : 1965 Performing Physician: Beny Valencia | | INDICATIONS e | | ndocarditis CONCLUSIONS 1. The left ventricle is moderately dilated.2. Overall | | left ventricular systolic function is mild-moderately impaired with, an EF between 40 - | | 45 %.3. No vegetation visualized.4. Mltd-cs-mtbuykdt mitral regurgitation is present.5. | | There [...] | stenosis.Aortic Valve: No vegetation visualized.Mitral Valve: Ejui-qe-yzusihzw mitral | | regurgitation is present.Tricuspid Valve: The tricuspid valve appears structurally | | normal. Trace/Mild (physiologic) regurgitation.Aorta: Ascending aorta, aortic arch and | | descending thoracic aorta are of normal caliber with no significant atherosclerotic | | disease.Mass: No mass visualized.Thrombus: No clot visualized.Pericardium: There is a | | trivial pericardial effusion present. MEASUREMENTS Grader Green Meat: | | CMAuthenticated by: Beny Valencia [facility] Date/Time: 10-09-2012 18:41:13 | |Right Atrium: The [...] Valve: No vegetation visualized. | |Mitral Valve: Dgyh-is-worhoyvg mitral regurgitation is present. | |Tricuspid Valve: [...] | |MEASUREMENTS | | | | | |Grader Green Meat: CM | |Authenticated by: Beny Valencia MD | |Report Date/Time: 10-09-2012 18:41:13 | + + XR Chest 1 Vw (10/08/2012 12:33 PM PDT) + + | Specimen | + + | | + + + + + | Narrative | Performed At | + + + | CAROL POTTER XR CHEST 1 VIEW 10/08/2012 [...] - 02/13/2019 4:30 PM PDT CAROL GARZA CHEST 1 VIEW10/08/2012 12:20 | | PM [...] | Testing performed | | | at [facility];[address] [place] [address];[place] [address] SPECIAL REQUESTS | | | R4ARM | | | Testing performed at [facility];[address] [place] [address];[place] [address] | | | GRAM STAIN GRAM POSITIVE COCCI | | | CALLED TO BRAYDEN ON | | | 6RP AT [phone] [id number] BY TR READ BACK RESULTS VERIFIED | | | GRAM POSITIVE COCCI AEROBIC BOTTLE | | | CALLED TO LUIS CARLOS | | | S ON 6RP AT [id number] BY TR READ BACK RESULTS VERIFIED | | | Testing performed at [facility] | | | [facility];[place] [address] CULTURE | | | STAPHYLOCOCCUS AUREUSAbnormal | | | GROWTH IN TWO OF TWO BOTTLESAbnormal | | | TIME TO DETECTION: 0.79 | | | DAYS Testing | | | performed at [facility], [address] [place] [address] | | | REPORT STATUS 10/11/2012 FINAL [...] | Testing performed | | | at [facility];[address] [place] [address];[place] [address] SPECIAL REQUESTS | | | RAC | | | Testing performed at [facility];[address] [place] [address] | | | GRAM STAIN GRAM POSITIVE COCCI | | | SEEN ON SMEAR FROM ANAEROBIC BOTTLE | | | SMEAR RESULTS CALLED TO AND READ BACK BY: KARAN | | | S/6RP AT [phone] BY ND | | | GRAM POSITIVE COCCI AEROBIC BOTTLE | | | CALLED TO LUIS CARLOS Rose ON 6RP AT [phone] [id number] | | | BY TR READ BACK RESULTS VERIFIED | | | Testing performed at [facility];[address] [place] [address];[place], [place] | | | [address] CULTURE STAPHYLOCOCCUS | | | AUREUS REFER TO CULTURE [id number] COLLECTED THE SAME DAY FOR | | | SUSCEPTIBILITYAbnormal | | | GROWTH IN TWO OF TWO BOTTLESAbnormal | | | TIME TO DETECTION: 0.71 DAYS | | | Testing performed at [facility], [facility] | | | [place] [address] REPORT STATUS | | | 10/11/2012 FINAL [...] Khalif Palm - 02/13/2019 4:30 PM PDT CAROL GREG ABDOMEN 1 VIEW10/06/2012 | | 11:43 AM [...] | Testing performed | | | at [facility];[address] [place] [address];[place] [address] SPECIAL REQUESTS | | | L ARM | | | Testing performed at [facility];[address] [place] [address];[place] [address] | | | CULTURE NO GROWTH IN 5 DAYS. | | | Testing | | | performed at [facility];[address] [place] [address];[place] [address] REPORT STATUS | | | 10/10/2012 FINAL [...] | Testing performed | | | at [facility];[address] [place] [address];[place] [address] SPECIAL REQUESTS | | | L HAND | | | Testing performed at [facility];[address] [place] [address];[place] [address] | | | CULTURE NO GROWTH IN 5 DAYS. | | | Testing | | | performed at [facility];[address] [place] [address];[place] [address] REPORT STATUS | | | 10/10/2012 FINAL [...] LAB | | C.diffAbnormal Testing performed at [facility];[address] [place] [address];[place], [place] | | | [phone] NAP1 BI 027 NAP1 BI | | | PRESUMPTIVE NEGATIVE Detection of 027 NAP1 BI strains of C. difficile | | | is presumptive and for epidemiological purposes and not intended to | | | guide or monitor treatment for C. difficile infections. Testing | | | performed at [facility];[address] [place] [address];[place] [address] | | + + + + +---------+ + + | Performing | Address | City/State/[facility]ode | Phone Number | | Organization | | | | + +---------+ + + | EXTERNAL LAB | | | | + +---------+ + + XR Cervical Spine 2 or 3 Views (10/03/2012 10:06 PM PDT) + + | Specimen | + + | | + + + + + | Narrative | Performed At | + + + | CAROL NOLASCO CERVICAL SPINE LIMITED 2-3 VIEW 10/03/2012 9:55 [...]
--- OUTSIDE RECORDS SUMMARY | ~2020-03-11 | XMS | Clinical Summary ---
Demographics + + + | Address | [address] | | | [place] [address] | + + + | Home Phone | | + + + | Preferred Language | Unknown | + + + | Marital Status | Single | + + + | Restoration Affiliation | Unknown | + + + [...] Team Providers + +------+ + | Care Starchmaker Name | Role | Phone | + +------+ + | Berenice Hicks | PCP | | + +------+ + Source Comments DIO is fully live on both EpicCare Ambulatory and EpicCare InPatient.[facility] Allergies + + + + + + [...] Prior stent to R subclavian veinCT at [facility] showed tip of new | | subclavian [...] | | | | dialysis ([facility]); 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 | | | | | | (end-stage renal | | | | | | disease) ([facility]); | | | | | | Secondary | | | | | | 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; | | | | | | Chronic obstructive | | | | | | asthma ([facility]); C | | | | | | [...] review.) | +--------+ + + + + from [...] + + + + Plan of Treatment +--------+ + + + [...] Rd | | | | | | [place], [place] | | | | | | [address] | | | | | | [phone] | | | | | | | [...] Rd | | | | | | [place], [place] | | | | | | [address] | | | | | | [phone] | | | | | | | | +--------+ + + + + | 03/23/ | Appointment | Radiology | Taiwo Marin | | 2019 | | | MD [facility] | | | | | | [address] | | | | | | [place], [place] | | | | | | [address] | | | | | | [phone] | | | | | | | | +--------+ + + + + | 03/23/ | Office | Social Work | Lina Rodriguez, | | | 2019 | Visit | | CYBER THREAT ANALYST [address] [facility] | | | | | | [facility] | | | | | | [place], [place] | | | | | | [address] | | | | | | [phone] | | +--------+ + + + + | 03/24/ | Telephone-S | Nutrition | Debby Salvador, | | | 2019 | cheduled | | [address] [facility] | | | | | | [facility] | | | | | | [place], [place] | | | | | | [address] | | | | | | [phone] | | | | | | | | +--------+ + + + + + + + + + | Health Maintenance | Due Date | Last | Comments | | | | Done | | + + + + + | Pneumococcal | | 05/26/20 | | | vaccination (2 of 3 | 0 | 09 | | | - PCV13) | | | | + + + + + | Influenza (Flu) | | 04/10/20 | | | vaccination (#1) | 0 | 19, | | | | | 03/17/20 | | | | | 18, | | | | | 03/20/20 | | | | | 16, | | | | | Addition | | | | | al | | | | | history | | | | | exists | | + + + + + Results Not on filefrom Last 3 Months Insurance + +--------+ +--------+ [...] + +--------+ | MEDICARE | MEDICA | [id number] | 06/24/19 | [phone] | [address] | [address] | | | RE A & | | 13-Pre | 1 | [phone] | re | | | B | | sent | | [place], [place] | | | | | | | | [address] | | + +--------+ +--------+ + +--------+ | MEDICARE RENAL | MEDICA | [id number] | 06/24/19 | | RENAL | Agency | | RECIPIENT EVAL | RE | | 13-Pre | | DEPT [id number] | | | | RENAL | | sent | | [place], | | | | RECIPI | | | | [place] [address] | | | | ENT | | | | | | | | EVAL | | | | | | + +--------+ +--------+ + +--------+ | MEDICAID [place] | OHP | [id number] | 08/30/19 | [phone] | [address] | [address] | | | PLUS | | 19-Pre | [phone] | [id number] | id | | | OPEN | | sent | | [place], [place] | | | | CARD | | | | [id number] | | + +--------+ +--------+ + +--------+ + +--------+ +--------+ + + | Guarantor Name | Accoun | Relation to | Date | Phone | Billing Address | | | t Type | Patient | of | | | | | | | | | | + +--------+ +--------+ + + | Enrique Potter | Person | Self [birth year] | [address] | | | al/Fam | | 1965 | [phone] [place], [place] | | | juan | | | 2 (Home) | [phone] | + +--------+ +--------+ + + | Enrique Potter | Specia | Self | [birth year] | | [address] | | | l | | 1965 | [phone] [place], [place] | | | [place] | | | 2 (Home) | [address] | | | g | | | | | + +--------+ +--------+ + +
--- OUTSIDE RECORDS SUMMARY | ~2020-03-11 | XMS | Encounter Summary ---
Demographics + + + | Address | [address] | | | [place] [address] | + + + | Home Phone | | + + + | Preferred Language | Unknown | + + + | Marital Status | Unknown | + + + | Gnosticism Affiliation | [id number] | + + + | Race | or | + + + | Ethnic Group | Not or | + + + Author + + + | Author | [facility] | | | and [place] | + + + | Organization | [facility] | | | [...] Team Providers + +------+ + | Care Board Lining Machine Operator Name | Role | Phone | + +------+ + PCP | Unavailable | + +------+ + Encounter Details +--------+ + + + + | Date | Type | Department | Care Team | Description | +--------+ + + + + | 04/30/ | Hospital | [facility] | Al Coon DO | GI bleeding; | | 2011 - | Encounter | [facility] | [address] | Diabetes mellitus | | | | CARE [address]LO[address] | [place] [address] | with ESRD (end-stage | | | | [address] | [phone] | renal disease) | | 2011 | | [place], [place] | | (HCC); GI bleed; | | | | [address] | | Hypoalbuminemia; | | | | [phone] | | Hypokalemia; | | | | | | Hyponatremia; | | | | | | Hypothyroidism; MSSA | | | | | | (methicillin | | | | | | susceptible | | | | | | Staphylococcus | | | | | | aureus) infection; | | | | | | Obesity (BMI | | | | | | 30-39.9); Rash and | | | | | | nonspecific skin | | | | | | eruption; Type II or | | | | | | unspecified type | | | | | | diabetes mellitus | | | | | | without mention of | | | | | | complication, not | | | | | | stated as | | | | | | uncontrolled (HCC); | | | | | | ESRD on dialysis | | | | | | (HCC); Unspecified | | | | | | asthma; Vitamin d | | | | | | deficiency; HTN | | | | | | (hypertension); ESRD | | | | | | (end stage renal | | | | | | disease) on dialysis | | | | | | (HCC); Acute | | | | | | posthemorrhagic | | | | | | anemia; DVT (deep | | | | | | venous thrombosis) | | | | | | (HCC); 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 | | | | | | ([facility]); | | | | | | Supratherapeutic | | | | | | INR; Anemia; | | | | | | Essential | | | | | | hypertension, | | | | | | benign; Secondary | | | | | | hyperparathyroidism | | | | | | (of renal origin) | | | | | | ([facility]); 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, | | | | | | continuous ([facility]); | | | | | | Anemia due to blood | | | | | | loss | +--------+ + + + + Social [...] documented as of this encounter Discharge Summaries Johnathon Colbert MD - 05/02/2012 11:07 AM PST Discharge Summaries by Johnathon Colbert MD at 05/02/12 1107 Author: Johnathon Colbert MD Service: Hospitalist Author Type: Physician Filed: 05/02/12 1112 Date of Service: 05/02/12 1107 Status: Signed Trade Mark Attorney: Johnathon Colbert MD (Physician) [facility] Service: Hospitalist Physician Discharge Summary Pt: Enrique Potter AGE/SEX: 47 y.o. male ROOM: [address] [place] [address] PCP: [facility] : 1965 Admit date: 04/30/2012 Discharge date and time: 05/02/2012 11:07 AM Admitting Physician: Al Coon DO Discharge Physician: Johnathon Colbert MD Consults: Dr. Yeung Primary Discharge Diagnoses: Acute Blood loss Anemia Type II or unspecified type diabetes mellitus without mention of complication, not stated a s uncontrolled [250.00] Amphetamine and other psychostimulant dependence, continuous [304.41] Essential hypertension, benign [401.1] Secondary hyperparathyroidism (of renal origin) [588.81] GI bleeding [578.9] HTN (hypertension) [401.9] Hypothyroidism [244.9] Vitamin d deficiency [268.9] GI bleed [578.9] DVT (deep venous thrombosis) [453.40] (DVT (deep venous thrombosis), on anticoagulation) Anemia due to blood loss [280.0] ESRD on dialysis [585.6] MSSA (methicillin susceptible Staphylococcus aureus) infection [041.11] ESRD (end stage renal disease) on dialysis [585.6] Supratherapeutic INR [790.92] Diabetes mellitus with ESRD (end-stage renal disease) [250.40] Obesity (BMI 30-39.9) [278.00] Secondary Discharge Diagnoses: HTN Discharged Condition: stable Significant Diagnostic Studies: Colonoscopy normal colonic mucosa throughout -diverticulosis, mild in degree, involving the sigmoid -hemorrhoids (internal), Large in size EGD 4 clean base ulcers at antrum, 3 to 7mm in size with no active bleeding signs. Hiatal herni a HPI and Hospital Course: The patient is a 47 y.o. male who presents with GI bleed, had several bloody bowel movement s which worsened each time, so he presented at [facility] in [place], [place], where he continued to have GI bleeding and was transferred to [facility] for GI and ESRD support. Patient was admitted 04/02/12, and diagnosed with MSSA bacteremia and ARF requiring HD. Rajendra madrid had L PICC line, later removed, and permacath placed, and HD started with Dr Cook neph rologist. ID Dr Ford was also consulted. He is being treated with Vancomycin IV on HD days ( MWF). After discharge, patient had US for vein mapping and was found to have upper extremity and IJ DVT's as shown in US report below, and patient was started on Coumadin. INR last nig ht at [facility] found to be 3.9 . In ED here the patient has been ordered to receive 2 PRBC's, 1 FFP, and IV Protonix He had EGD that shows Ulcers as mentioned above. Plan For line associated most of the time we may not need anticoagulation. I DW patient and told him to stop warfarin and DW PCP. He should not be on warfarin or ASA for at least 2 to 3 w eeks. Will start him on PPI Discharge Vitals: Filed Vitals: 05/02/12 1000 05/02/12 1015 05/02/12 1030 05/02/12 1045 BP: 140/81 138/77 134/74 136/76 Pulse: Temp: TempSrc: Resp: Height: Weight: SpO2: [...] Behavior is normal. Judgment normal. LABS: Lab 05/02/12 0808 05/02/12 0015 05/01/12 1608 05/01/12 0905 04/30/12 1603 04/30/12 0456 WBC 7.4 8.8 9.6 -- -- -- HGB 9.2* 9.3* 8.7* -- -- -- HCT 26.9* 27.0* 25.2* -- -- -- PLT 75* 167 151 -- -- -- NEUTOPHILPCT -- -- -- 59.3 54.0 53.5 MONOPCT -- -- -- 6.7 7.1 7.4 Lab 05/02/12 0730 05/01/12 0450 NA 143 138 K 3.5 4.0 CL 109 109 CO2 20* 16* BUN 30* 57* CREATININE 5.21* 6.21* CALCIUM -- -- PROT -- -- BILITOT -- -- ALKPHOS -- -- ALT -- -- AST -- -- GLUCOSE -- -- Phosphorus: Lab Results Component Value Date PHOS 5.4* 05/01/2012 Lab 05/01/12 0450 MG 2.0 Lab 05/01/12 0450 04/30/12 1603 APTT -- -- INR 1.3 2.0 PTT -- -- Disposition: Home or Self Care Patient Instructions: Current Discharge Medication List START taking these medications Details omeprazole (PRILOSEC) 40 MG capsule Take 1 capsule by mouth 2 (two) times daily. Qty: 60 capsule, Refills: 1 CONTINUE these medications which have NOT CHANGED [...] Associated Diagnoses: Secondary hyperparathyroidism (of renal origin) levothyroxine (SYNTHROID, LEVOTHROID) 25 MCG tablet Take 1 tablet by mouth every morning b efore breakfast. Qty: 30 tablet, Refills: 0 vancomycin (VANCOCIN) IVPB Administer 750 mg IV with hemodialysis on dialysis days Qty: 17 Doses, Refills: 0 ergocalciferol (DRISDOL) 88326 UNITS capsule Take 1 capsule by mouth once a week. Qty: 3 capsule, Refills: 0 STOP taking these medications aspirin 81 MG EC tablet warfarin (COUMADIN) 7.5 MG tablet Activity: activity as tolerated Diet: renal diet Wound Care: as directed Discharge took more than 35 minutes, to include final examination, discussion of admission, and preparation of prescriptions, instructions for ongoing care, follow up and dictation of summary. Follow-up with PCP 1 week Signed: JOHNATHON COLBERT MD, FACP 05/02/2012 11:07 AM documented in this enc ounter Medications [...] Progress Notes Conversion Transaction, Provider Unknown - 05/02/2012 3:00 PM PSTFormatting of this note m ight be different from the original. Progress Notes by Janene Robbins RN at 05/02/12 1500 Author: Janene Robbins RN Service: (none) Author Type: Registered Nurse Filed: 05/02/12 1502 Date of Service: 05/02/12 1500 Status: Signed Trade Mark Attorney: Janene Robbins RN (Registered Nurse) Pt discharged from hospital with self care.discharge paperwork,prescription and instruction s given.Pt verbalizes understanding and has no further questions. Sean Willis - 05/02/2012 11:20 AM PSTFormatting of this note might be different from the origi nal. Progress Notes by Sean Reid MD at 05/02/12 1120 Author: Sean Reid MD Service: Nephrology Author Type: Physician Filed: 05/02/12 1128 Date of Service: 05/02/12 1120 Status: Signed Trade Mark Attorney: Sean Reid MD (Physician) [facility] Service: NEPHROLOGY Progress Note Enrique Potter 47 y.o. [id number] male [facility] Hospital Day: LOS: 2 days SUBJECTIVE Patient seen and examined. On HD GI Bleeding, Blood in stool HISTORY OF PRESENT ILLNESS The patient is a 47 y.o. male who presents with GI bleed, started yesterday, had several bl oody bowel movements last night which worsened each time, so he presented at [facility] in [place], [place], where he continued to have GI bleeding and was transferred to [facility] for GI and ESRD support. Patient was recently hospitalized at [facility], admitted 04/02/12, and diagnosed with MSSA bacte remia and ARF requiring HD. Patient had L PICC line, later removed, and permacath placed, an d HD started with Dr Cook asian studies professor. ID Dr Ford was also consulted. He is being treated w ith Vancomycin IV on HD days (MWF). After discharge, patient had US for vein mapping and was found to have upper extremity and IJ DVT's as shown in US report below, and patient was sta rted on Coumadin. INR last night at [facility] found to be 3.9 . In ED here the patient has been ordered to receive 2 PRBC's, 1 FFP, and IV protonix.,Jen gee been consulted. 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 OVER NIGHT STABLE, STOOL YELLOWISH, SEEMS NO MORE BLEEDING/RECTUM DENIES N/V/ D SOB HD TODAY TOLERATING WELL, FEELING BETTER PANENDOSCOPY 05/01/2012 Colonoscopy normal colonic mucosa throughout -diverticulosis, mild in degree, involving the sigmoid -hemorrhoids (internal), Large in size EGD 4 clean base ulcers at antrum, 3 to 7mm in size with no active bleeding signs. Hiatal herni a OFF COUMADIN FOR UPPER ARM DVT Past Medical History Diagnosis Date Hyperlipidemia Hypertension Diabetes mellitus type II Asthma Thyroid disease Anemia Abdominal pain, right upper quadrant 04/13/2012 DVT (deep venous thrombosis) Chronic kidney disease Dialysis patient GI bleed 04/30/2012 Past Surgical History Procedure Date Unlisted procedure arthroscopy Colonoscopy with egd 05/01/2012 Procedure: COLONOSCOPY W/ EGD; Surgeon: John Yeung MD; Location: [facility] ENDOSCOPY; rvice: Gastroenterology; Laterality: N/A; History Social History Marital Status: Spouse Name: N/A Number of Children: N/A Years of Education: N/A Occupational History Not on file. Social History Main Topics Smoking status: Never Smoker Smokeless tobacco: Never Used Alcohol Use: No Drug Use: Yes Special: Marijuana Sexually Active: Other Topics Concern Not on file Social History Narrative , LIVES WITH [employer]; KIDSUNEMPLOYED BEFORE WORKED AT [employer] IN [place]/ GOL[employer] COURSESMOKE NONE ETOH QUIT 15 YEARS AGODRUGS: USES METHAMPHETAMINES PER PATIENTF ATHER HAS COLON CANCER, HEART DISEASEMOTHER 15 YEARS AGONO FH KIDNEY PROBLEMS. History reviewed. No pertinent family history. Scheduled Medications acetaminophen 650 mg Oral Once albumin human 12.5 g Intravenous Once amlodipine 10 mg Oral Daily calcitRIOL 0.25 mcg Oral Daily diphenhydrAMINE 25 mg Oral Once Or diphenhydrAMINE 25 mg Intravenous Once epoetin alena 10,000 Units Intravenous Once in dialysis epoetin alena 10,000 Units Intravenous Once in dialysis ergocalciferol 50,000 Units Oral Weekly furosemide 20 mg Intravenous See Admin Instructions heparin (porcine) Intracatheter Once in dialysis heparin (porcine) Intracatheter Once in dialysis levothyroxine 25 mcg Oral QAM AC pantoprazole 40 mg Intravenous BID sodium chloride 10 mL Intravenous Q8H vancomycin 15 mg/kg Intravenous Once DISCONTD: vancomycin (VANCOCIN) IVPB < 1 G 750 mg Intravenous See Admin Instructions Continuous Infusions sodium chloride PRN Medications acetaminophen, acetaminophen, albuterol, ondansetron, ondansetron, polyethylene glycol, zol pidem Allergy: Allergies Allergen Reactions Lisinopril Other (See Comments) "makes me sweat and knocked me out" Penicillins Other (See Comments) unknown OBJECTIVE Vital Signs: BP 141/68 | Pulse 80 | Temp(Src) 98 F (36.7 C) (Oral) | Resp 18 | Ht 1.702 m (5' 7.01") | Wt 81.1 kg (178 lb 12.7 oz) | BMI 28.00 kg/m2 | SpO2 100% I&O Detailed Table: I/O last 3 completed shifts: In: 3300 [P.O.:300; Blood:600; Other:2400] Out: 3750 [Urine:350; Other:3400] Weight change: 3.1 kg (6 lb 13.3 oz) Hemodynamics Last 24hrs: Examination: Constitutional: Alert [...] no guarding. Musculoskeletal: No gross deformity, EXT: 1- 2 plus pedal edema and pulses are palpable. Neurological: No gross focal motor neurologic deficits. Skin: Skin is warm and dry. GENERALIZED MACULOPAPULAR AND PUSTULAR RASH, LOT BETTER NOW Psychiatric: AXOX3, mood and affect ok, memory seems to be intact. NO LYMPHADENOPATHY S/P RENAL BX 04/10/2012, SEVERE SCARRING LABS: Microalbumen/Creatinine ratio: No results found for this basename: MALBRX, LABCREAU, LABMICR IRON: Lab Results Component Value Date IRON 55 04/02/2012 No results found for this basename: labprot, labmicr Lab Results Component Value Date FERRITIN 139 04/02/2012 LABIRON 38 04/02/2012 No results found for this basename: labprot CBC: Lab Results Component Value Date WBC 7.4 05/02/2012 RBC 2.94* 05/02/2012 HGB 9.2* 05/02/2012 HCT 26.9* 05/02/2012 MCV 91.8 05/02/2012 MCH 31.3 05/02/2012 MCHC 34.1 05/02/2012 RDW 46.8 05/02/2012 PLT 75* 05/02/2012 MPV 6.8 05/02/2012 DIFFTYPE MANUAL 05/02/2012 CMP: Lab Results Component Value Date NA 143 05/02/2012 K 3.5 05/02/2012 CL 109 05/02/2012 CO2 20* 05/02/2012 ANIONGAP 18 05/02/2012 GLUF 145* 05/02/2012 BUN 30* 05/02/2012 CREATININE 5.21* 05/02/2012 BCR 6 05/02/2012 CA 7.5* 05/02/2012 CA 6.1* 04/02/2012 PROT 5.4 04/21/2012 ALB 2.6 04/21/2012 GLOB 2.8 04/21/2012 BILITOT 0.3 04/21/2012 ALP 107 04/21/2012 AST 30 04/21/2012 ALT 27 04/21/2012 EGFR 13* 05/02/2012 Magnesium: Lab Results Component Value Date MG 2.0 05/01/2012 Phosphorus: Lab Results Component Value Date PHOS 5.4* 05/01/2012 PT/INR: Lab Results Component Value Date INR 1.3 05/01/2012 Troponin: Lab Results Component Value Date TROPONINI 0.06 04/05/2012 IMAGING End Colonoscopy Imaging 05/01/2012 This is a non-reportable procedure without a radiologist report and is used for image storage only. Please review the GI encounter notes for details on the procedure. End Esophogogastroduodenoscopy 05/01/2012 This is a non-reportable procedure without a radiologist report and is used for image storage only. Please review the GI encounter notes for details on the procedure. IMAGING Ultrasound Upper Extremity Dialysis Mapping Bilateral 04/24/2012 ENRIQUE POTTER US UPPER EXTREMITY DIALYSIS MAPPING BILATERAL 04/24/2012 10:49 AM HISTOR Y: 47 years. Male. End-stage renal disease. TECHNIQUE: A high-resolution grayscale duplex tr ansducer with color and pulsed Doppler capability was utilized for imaging. Study is technic ally hampered by the presence of dressing material obscuring the right side of the neck and right subclavian region. FINDINGS: At the access site of the right IJ central venous cathete r there is adjacent occluding thrombus distally the subclavian vein is not able to be interr ogated because of dressing material as previously described. The left internal jugular vein is normal in appearance as is the a left subclavian vein. RIGHT CEPHALIC VEIN (diameter/dept h) (measurements in millimeters) At Origin: * / * * There is occluding thrombus proximal por tion cephalic vein. Upper Humerus: * / * Mid Humerus: * / * At Elbow: * / * Upper Forearm: 2 .7 / 5.2 Mid Forearm: 2.5 / 5.8 At Wrist: 2.5 / 3.0 RIGHT BASILIC VEIN (diameter/depth) (tarun surements in millimeters) Upper Humerus: 4.4 / 9.5 Mid Humerus: 3.8 / 9.1 At Elbow: 4.2 / 7. 1 Upper Forearm: 2.8 / 5.3 Mid Forearm: 2.7 / 4.8 At Wrist: 3.1 / 4.4 RIGHT ANTECUBITAL VEIN : 6.6 / 4.8 RIGHT BRACHIAL VEIN (diameter/depth) (measurements in millimeters) Upper Humerus : 4.8 / 12.8 Mid Humerus: 4.1 / 16.5 At Elbow: 3.6 / 9.9 RIGHT AXILLARY VEIN: 5.5 / 14.4 RIG RADIAL ARTERY: 2.0 / 5.2 RIGHT ULNAR ARTERY: 1.7 / 9.9 RIGHT BRACHIAL ARTERY: 4.5 / 10.2 RIGHT AXILLARY ARTERY: 6.3 / 13.1 Right Selected Artery: Right Selected Vein: LEFT CEPHALIC VEIN (diameter/depth) (me asurements in millimeters) At Origin: / Upper Humerus: 3.8 / 7.3 Mid Humerus: * / * At Elbow : 2.5 / 4.7 Upper Forearm: 2.7 / 6.4 Mid Forearm: 2.5 / 7.2 At Wrist: 2.5 / 3.9 LEFT BASILIC VEIN (diameter/depth) (measurements in millimeters) Upper Humerus: 4.1 / 10.8 Mid Humerus: 4.1 / 10.6 At Elbow: 4.4 / 8.9 Upper Forearm: 1.9 / 4.1 Mid Forearm: 1.9 / 2.1 At Wrist: 1.2 / 5.7 LEFT ANTECUBITAL VEIN: 2.7 / 2.1 LEFT BRACHIAL VEIN (diameter/depth) (measurements in millimeters) Upper Humerus: 4.4 / 14.3 Mid Humerus: 3.2 / 14.4 At Elbow: 3.3 / 10.0 LEFT AX ILLARY VEIN: 6.4 / 11.4 LEFT RADIAL ARTERY: 2.2 / 8.2 LEFT ULNAR ARTERY: 2.1 / 11.8 LEFT BRA CHIAL ARTERY: 5.1 / 12.5 LEFT AXILLARY ARTERY: 5.9 / 8.4 Left Selected Artery: Brachial trip hasic flow Left Selected Vein: Basilic IMPRESSION: 1. Upper extremity vein mapping as descri bed above. 2. Occluding thrombus within the right internal jugular vein and in the right cep halic vein down to the level of the elbow. 3. Occluding thrombus in the midportion of the le ft cephalic vein. This report has been prepared with a voice recognition system. The possibi lity of "sound alike" swimming pool service technician errors, addition and/or deletions may occur. If there is any question about this report please contact the originating radiologist. Electronically s igned by Mark Stark MD on 04/24/2012 12:28 PM CASE: [id number] PATIENT: ENRIQUE POTTER Surgical Pathology Report PATHOLOGIC DIAGNOSIS: KIDNEY, NEEDLE CORE BIOPSY: - SEVERE NODULAR AND GLOBAL GLOMERULOSCLEROSIS CONSISTENT WITH DIABETIC NEPHROPATHY. - HYPERTENSIVE VASCULAR CHANGES. - SEVERE TUBULAR ATROPHY AND INTERSTITIAL FIBROSIS. COMMENT: Dr. Cook has been phoned with this preliminary diagnosis on April 11, 2012. TECHNICAL NOTE: This case was seen and processed at [facility] in [place], [place]. (Report #: [id number]). AMW:clarisa CLINICAL HISTORY: 04/10/2012. (R) renal bx - renal failure, extensive ulcerated small skin lesions. GROSS DESCRIPTION: The kidney biopsy was performed by Dr. Lentz - Radiologist. The pathologist - Dr. Dan performed a consultation during the biopsy procedure on this case. MICROSCOPIC EXAMINATION: Sections show approximately 10-12 glomeruli, all of which show complete or nodular sclerosis. None of the glomeruli show crescent formation or proliferative changes. No fibrinoid necrosis is seen. The interstitium shows 75% interstitial fibrosis with marked tubular atrophy. Blood vessels show hypertensive vascular changes. PAS, Lentz and Trichrome stains support the histologic findings. No significant interstitial chronic inflammation is present. No vasculitis is identified. The histologic features are compatible with fairly end-stage renal disease, consistent with hypertension and diabetic origin. Congo Red and Thioflavin-T stains performed on the kidney biopsy for amyloid are both negative. There is no change in the diagnosis. IMMUNOFLUORESCENCE MICROSCOPY: Direct immunofluorescence is performed on frozen tissue showing 12-13 partially sclerosed or completely sclerosed glomeruli. Immunofluorescence for IgG is negative. IgM shows 1+ trapping. IgA, fibrinogen, albumin, kappa, and lambda are all negative. C3 and C1q show nonspecific trapping. This immunofluorescence pattern is compatible with diabetic nephropathy and is negative. Trevor Dan MD PROBLEM LIST Principal Problem: *GI bleed Active Problems: Acute posthemorrhagic anemia MSSA (methicillin susceptible Staphylococcus aureus) infection Diabetes mellitus with ESRD (end-stage renal disease) Anemia due to blood loss HTN (hypertension) DVT of IJ and B/L cephalics ESRD (end stage renal disease) on dialysis Nodular type diabetic glomerulosclerosis ASSESSMENT & PLAN ESRD DUE TO DIABETES AND HYPERTENSIVE NEPHROSCLEROSIS ON HD M-W-F AT [facility] UNIT UNDER DR COOK ALL WORK UP [...] of recovery. Specifically AIN is not demonstrated. WILL HOLD HD TODAY TILL HE GETS STABILIZED by tomorrow NS 50 ml/hr for total 2 L only Renal diet AVOID NSAIDS/ ADAM-2 INHIBITORS AVOID NEPHROTOXIC MEDS INCLUDING AMINOGLYCOSIDES/ IV CONTRAST Assess daily for need for hd Dose all meds for crcl less than 15 mls/min TOLERATING HD WELL ANEMIA STABLE Hb: 9.2, 8.5 vs 6.4 DUE TO GI BLEED S/P PRBCs PANENDOSCOPY 05/01/2012 Colonoscopy normal colonic mucosa throughout [...] po daily CASE DISCUSSED IN DETAIL WITH PATIENT/ FAMILY/ HOSPITALIST DR COLBERT , ANSWERS ALL QUESTIONS IN DETAIL, VERBALIZES UNDERSTANDING S/P RENAL BX 04/10/2012 He is s/p diagnostic kidney biopsy which shows SEVERE NODULAR DM NEPHROPATHY, - SEVERE TUBU LAR ATROPHY AND INTERSTITIAL FIBROSIS. PATHOLOGIC DIAGNOSIS: KIDNEY, NEEDLE CORE BIOPSY: - SEVERE NODULAR AND GLOBAL GLOMERULOSCLEROSIS CONSISTENT WITH DIABETIC NEPHROPATHY. - HYPERTENSIVE VASCULAR CHANGES. - SEVERE TUBULAR ATROPHY AND INTERSTITIAL FIBROSIS. D/W DR COLBERT AND HE IS DISCHARGING HIM AFTER HD TODAY WITHOUT COUMADIN HD TODAY WITH UF 3-4 L without HEPARIN PT [facility] UNDER DR COOK Time spend over 35 minutes of time spent evaluating the patient, reviewing the data, formul ating a plan and discussion with patient and hospitalist team, more than half of the time sp ent in counseling and coordination of care. SEAN REID MD 05/02/2012 onversio n Transaction, Provider Unknown - 05/02/2012 9:28 AM PSTFormatting of this note might be di fferent from the original. Progress Notes by Jose Rafael Cesar RPH at 05/02/12927 Author: Jose Rafael Cesar RPH Service: (none) Author Type: Pharmacist Filed: 05/02/12928 Date of Service: 05/02/12927 Status: Signed Trade Mark Attorney: Jose Rafael Cesar RPH (Pharmacist) Vancomycin update- vancomycin dose was not given after dialysis on 05/01, it was ordered but nursing missed giving it. Patient is being dialyzed now. I checked a random level with thi s am labs and it was 9.87. Instead of 750mg, will give 1250mg IV after HD today, then resum e the dosing of 750mg after ea HD. onver quique Transaction, Provider Unknown - 05/01/2012 10:55 AM PST Progress Notes by Jose Rafael Cesar RPH at 05/01/121054 Author: Jose Rafael Cesar RPH Service: (none) Author Type: Pharmacist Filed: 05/01/121054 Date of Service: 05/01/121054 Status: Signed Trade Mark Attorney: Jose Rafael Cesar RPH (Pharmacist) HD today, will receive vancomycin 750mg after HD Sean Willis - 05/01/2012 10:52 AM PSTFormatting of this note might be different from the origi nal. Progress Notes by Sean Reid MD at 05/01/12 1052 Author: Sean Reid MD Service: Nephrology Author Type: Physician Filed: 05/01/12 1110 Date of Service: 05/01/12 105 Status: Signed Trade Mark Attorney: Sean Reid MD (Physician) [facility] Service: NEPHROLOGY Progress Note Enrique Potter 47 y.o. [id number] male [facility] Hospital Day: LOS: 1 day SUBJECTIVE Patient seen and examined. GI Bleeding, Blood in stool HISTORY OF PRESENT ILLNESS The patient is a 47 y.o. male who presents with GI bleed, started yesterday, had several bl oody bowel movements last night which worsened each time, so he presented at [facility] in [place], [place], where he continued to have GI bleeding and was transferred to [facility] for GI and ESRD support. Patient was recently hospitalized at [facility], admitted 04/02/12, and diagnosed with MSSA bacte remia and ARF requiring HD. Patient had L PICC line, later removed, and permacath placed, an d HD started with Dr Cook asian studies professor. ID Dr Ford was also consulted. He is being treated w ith Vancomycin IV on HD days (MWF). After discharge, patient had US for vein mapping and was found to have upper extremity and IJ DVT's as shown in US report below, and patient was sta rted on Coumadin. INR last night at [facility] found to be 3.9 . In ED here the patient has been ordered to receive 2 PRBC's, 1 FFP, and IV protonix.,Jen gee been consulted. Nephrology consulted for evaluation and management of ESRD AND MAINTENANCE HD -M-W- UNDER DR ASHFORD AT [facility] [facility] ACUTE GI BLEEDING, SEVERE Associated with fluid electrolyte acid base imbalances HAPPILY FOR 22 YEARS, LIVES in [place] AT HOME WITH , [employer]; [employer] MPLOYED BEFORE WORKED AT [employer] IN [place]/ [employer] COURSE SMOKE NONE ETOH QUIT 15 YEARS AGO, USES METHAMPHETAMINES PER PATIENT, NOW QUIT 03/2012 FATHER HAS COLON CANCER, HEART DISEASEMOTHER 15 YEARS AGONO FH KIDNEY PROBLEMS. OVER NIGHT STABLE, STOOL YELLOWISH, SEEMS NO MORE BLEEDING/RECTUM DENIES N/V/ D SOB HD TODAY BEFORE PANENDOSCOPY this evening Past Medical History Diagnosis Date Hyperlipidemia Hypertension [...] Never Used Alcohol Use: No Drug Use: Yes Special: Marijuana Sexually Active: Other Topics Concern Not on file Social History Narrative , LIVES WITH [employer]; KIDSUNEMPLOYED BEFORE WORKED AT [employer] IN [place]/ [employer] COURSESMOKE NONE ETOH QUIT 15 YEARS AGODRUGS: USES METHAMPHETAMINES PER PATIENTF ATHER HAS COLON CANCER, HEART DISEASEMOTHER 15 YEARS AGONO FH KIDNEY PROBLEMS. History reviewed. No pertinent family history. Scheduled Medications acetaminophen 650 mg Oral Once amlodipine 10 mg Oral Daily calcitRIOL 0.25 mcg Oral Daily diphenhydrAMINE 25 mg Oral Once Or diphenhydrAMINE 25 mg Intravenous Once ergocalciferol 50,000 Units Oral Weekly furosemide 20 mg Intravenous See Admin Instructions levothyroxine 25 mcg Oral QAM AC lidocaine buffered 1% pantoprazole 40 mg Intravenous BID phytonadione ((AQUA-MEPHYTON) IVPB 10 mg Intravenous Once polyethylene glycol 4,000 mL Oral Once sodium chloride 10 mL Intravenous Q8H vancomycin 750 mg Intravenous See Admin Instructions Continuous Infusions sodium chloride PRN Medications acetaminophen, acetaminophen, albuterol, ondansetron, ondansetron, polyethylene glycol, zol pidem Allergy: Allergies Allergen Reactions Lisinopril Other (See Comments) "makes me sweat and knocked me out" Penicillins Other (See Comments) unknown OBJECTIVE Vital Signs: BP 157/74 | Pulse 79 | Temp(Src) 97.5 F (36.4 C) (Oral) | Resp 18 | Ht 1.702 m (5' 7.01 ") | Wt 82.7 kg (182 lb 5.1 oz) | BMI 28.55 kg/m2 | SpO2 100% I&O Detailed Table: I/O last 3 completed shifts: In: 1594 [Blood:1544; IV Piggyback:50] Out: 350 [Urine:350] Weight change: -0.308 kg (-10.9 oz) Hemodynamics Last 24hrs: Examination: Constitutional: Alert [...] no guarding. Musculoskeletal: No gross deformity, EXT: 1- 2 plus pedal edema and pulses are palpable. Neurological: No gross focal motor neurologic deficits. Skin: Skin is warm and dry. GENERALIZED MACULOPAPULAR AND PUSTULAR RASH, LOT BETTER NOW Psychiatric: AXOX3, mood and affect ok, memory seems to be intact. NO LYMPHADENOPATHY S/P RENAL BX 04/10/2012, SEVERE SCARRING LABS: Microalbumen/Creatinine ratio: No results found for this basename: MALBRX, LABCREAU, LABMICR IRON: Lab Results Component Value Date IRON 55 04/02/2012 No results found for this basename: labprot, labmicr Lab Results Component Value Date FERRITIN 139 04/02/2012 LABIRON 38 04/02/2012 No results found for this basename: labprot CBC: Lab Results Component Value Date WBC 9.9 05/01/2012 RBC 2.74* 05/01/2012 HGB 8.5* 05/01/2012 HCT 24.8* 05/01/2012 MCV 90.4 05/01/2012 MCH 31.0 05/01/2012 MCHC 34.3 05/01/2012 RDW 46.8 05/01/2012 PLT 253 05/01/2012 MPV 6.2 05/01/2012 DIFFTYPE AUTOMATED 05/01/2012 CMP: Lab Results Component Value Date NA 138 05/01/2012 K 4.0 05/01/2012 CL 109 05/01/2012 CO2 16* 05/01/2012 ANIONGAP 18 05/01/2012 GLUF 85 05/01/2012 BUN 57* 05/01/2012 CREATININE 6.21* 05/01/2012 BCR 9 05/01/2012 CA 7.2* 05/01/2012 CA 6.1* 04/02/2012 PROT 5.4 04/21/2012 ALB 2.6 04/21/2012 GLOB 2.8 04/21/2012 BILITOT 0.3 04/21/2012 ALP 107 04/21/2012 AST 30 04/21/2012 ALT 27 04/21/2012 EGFR 10* 05/01/2012 Magnesium: Lab Results Component Value Date MG 2.0 05/01/2012 Phosphorus: Lab Results Component Value Date PHOS 5.4* 05/01/2012 PT/INR: Lab Results Component Value Date INR 1.3 05/01/2012 Troponin: Lab Results Component Value Date TROPONINI 0.06 04/05/2012 IMAGING Ultrasound Upper Extremity Dialysis Mapping Bilateral 04/24/2012 ENRIQUE POTTER US UPPER EXTREMITY DIALYSIS MAPPING BILATERAL 04/24/2012 [...] r eport please contact the originating radiologist. : [id number] PATIENT: ENRIQUE PTOTER Surgical Pathology Report PATHOLOGIC DIAGNOSIS: KIDNEY, NEEDLE CORE BIOPSY: - SEVERE NODULAR AND GLOBAL GLOMERULOSCLEROSIS CONSISTENT WITH DIABETIC NEPHROPATHY. - HYPERTENSIVE VASCULAR CHANGES. - SEVERE TUBULAR ATROPHY AND INTERSTITIAL FIBROSIS. COMMENT: Dr. Arif has been phoned with this preliminary diagnosis on April 11, 2012. TECHNICAL NOTE: This case was seen and processed at [facility] in [place], [place]. (Report #: [id number]). AMW:clarisa CLINICAL HISTORY: 04/10/2012. (R) renal bx - renal failure, extensive ulcerated small skin lesions. GROSS DESCRIPTION: The kidney biopsy was performed by Dr. Lentz - Radiologist. The pathologist - Dr. Dan performed a consultation during the biopsy procedure on this case. MICROSCOPIC EXAMINATION: Sections show approximately 10-12 glomeruli, all of which show complete or nodular sclerosis. None of the glomeruli show crescent formation or proliferative changes. No fibrinoid necrosis is seen. The interstitium shows 75% interstitial fibrosis with marked tubular atrophy. Blood vessels show hypertensive vascular changes. PAS, Lentz and Trichrome stains support the histologic findings. No significant interstitial chronic inflammation is present. No vasculitis is identified. The histologic features are compatible with fairly end-stage renal disease, consistent with hypertension and diabetic origin. Congo Red and Thioflavin-T stains performed on the kidney biopsy for amyloid are both negative. There is no change in the diagnosis. IMMUNOFLUORESCENCE MICROSCOPY: Direct immunofluorescence is performed on frozen tissue showing 12-13 partially sclerosed or completely sclerosed glomeruli. Immunofluorescence for IgG is negative. IgM shows 1+ trapping. IgA, fibrinogen, albumin, kappa, and lambda are all negative. C3 and C1q show nonspecific trapping. This immunofluorescence pattern is compatible with diabetic nephropathy and is negative. Trevor Dan MD PROBLEM LIST Principal Problem: *GI bleed Active Problems: MSSA (methicillin susceptible Staphylococcus aureus) infection Diabetes mellitus with ESRD (end-stage renal disease) Anemia due to blood loss HTN (hypertension) DVT of IJ and B/L cephalics ESRD (end stage renal disease) on dialysis ASSESSMENT & PLAN ESRD DUE TO DIABETES AND HYPERTENSIVE NEPHROSCLEROSIS ON HD M-- AT [facility] HD UNIT UNDER DR COOK ALL [...] of recovery. Specifically AIN is not demonstrated. WILL HOLD HD TODAY TILL HE GETS STABILIZED by tomorrow NS 50 ml/hr for total 2 L only Renal diet AVOID NSAIDS/ ADAM-2 INHIBITORS AVOID NEPHROTOXIC MEDS INCLUDING AMINOGLYCOSIDES/ IV CONTRAST Assess daily for need for hd Dose all meds for crcl less than 15 mls/min ANEMIA STABLE Hb 8.5 vs 6.4 DUE TO GI BLEED S/P PRBCs PANENDOSCOPY THIS EVENING 05/01/2012 HTN WATCH BP CLOSELY FOR NOW NARCOTIC ABUSER INCLUDING METH, RECENTLY QUIT HYPERPHOSPHATEMIA LOW P DIET SECONDARY HYPERPARATHYROIDISM LAST PTH 255 GETTING IV HECTORAL DURING HD PER PROTOCOL VITAMIN D,25 HYDROXY <12 CONT VIT D 2000 unit po daily CASE DISCUSSED IN DETAIL WITH PATIENT/ FAMILY/ HOSPITALIST, ANSWERS ALL QUESTIONS IN DETAIL , VERBALIZES UNDERSTANDING S/P RENAL BX 04/10/2012 He is s/p diagnostic kidney biopsy which shows SEVERE NODULAR DM NEPHROPATHY, - SEVERE TUBU LAR ATROPHY AND INTERSTITIAL FIBROSIS. PATHOLOGIC DIAGNOSIS: KIDNEY, NEEDLE CORE BIOPSY: - SEVERE NODULAR AND GLOBAL GLOMERULOSCLEROSIS CONSISTENT WITH DIABETIC NEPHROPATHY. - HYPERTENSIVE VASCULAR CHANGES. - SEVERE TUBULAR ATROPHY AND INTERSTITIAL FIBROSIS. D/W DR GELLER HD TODAY WITH UF 1 L without HEPARIN Time spend over 35 minutes of time spent evaluating the patient, reviewing the data, formu lating a plan and discussion with patient and hospitalist team, more than half of the time s pent in counseling and coordination of care. SEAN REID MD 05/01/2012 Jeanne malone, Favio Willoughby MD - 05/01/2012 7:52 AM PST Progress Notes by Favio Dawkins MD at 05/01/12 2055 Author: Favio Dawkins MD Service: Hospitalist Author Type: Physician Filed: 05/01/12 7873 Date of Service: 05/01/12 888 Status: Addendum Trade Mark Attorney: Favio Dawkins MD (Physician) Related Notes: Original Note by Favio Dawkins MD (Physician) filed at 05/01/12 0325 [facility] Service: Hospitalist Progress Note Hospital Day: LOS: 1 day Post-Op Day: * No surgery date entered * SUBJECTIVE Patient Summary: The patient is a 47 y.o. male who presents with GI bleed, started yes terday, had several bloody bowel movements last night which worsened each time, so he presen gela at [facility] in [place], [place], where he continued to have GI bleeding and wa s transferred to [facility] for GI and ESRD support. Patient was recently hospitalized at [facility], admitted 04/02/12, and diagnosed with MSSA bacte remia and ARF requiring HD. Patient had L PICC line, later removed, and permacath placed, an d HD started with Dr Cook asian studies professor. ID Dr Ford was also consulted. He is being treated w ith Vancomycin IV on HD days (MWF). After discharge, patient had US for vein mapping and was found to have upper extremity and IJ DVT's as shown in US report below, and patient was sta rted on Coumadin. INR last night at [facility] found to be 3.9 . In ED here the patient has been ordered to receive 2 PRBC's, 1 FFP, and IV protonix.,Jen gee been consulted Events Overnight: Patient is seen and examined at bedside on follow up. Overnight Vit al Signs have been stable and patient states that they subjectively feel better in good spir its, stools not bloody anymore denies abdominal pain, no CP/SOB/N/V Scheduled Medications amlodipine 10 mg Oral Daily calcitRIOL 0.25 mcg Oral Daily ergocalciferol 50,000 Units Oral Weekly furosemide 20 mg Intravenous See Admin Instructions levothyroxine 25 mcg Oral QAM AC lidocaine buffered 1% pantoprazole 40 mg Intravenous BID phytonadione ((AQUA-MEPHYTON) IVPB 10 mg Intravenous Once polyethylene glycol 4,000 mL Oral Once sodium chloride 10 mL Intravenous Q8H vancomycin 750 mg Intravenous See Admin Instructions Continuous Infusions sodium chloride PRN Medications acetaminophen, acetaminophen, albuterol, ondansetron, ondansetron, polyethylene glycol, zol pidem OBJECTIVE Vital Signs: BP 132/61 | Pulse 90 | Temp(Src) 98.4 F (36.9 C) (Oral) | Resp 18 | Ht 1.702 m (5' 7.01 ") | Wt 82.7 kg (182 lb 5.1 oz) | BMI 28.55 kg/m2 | SpO2 100% General Appearance: Alert, cooperative, no distress, appears stated age Head: Normocephalic, without obvious abnormality, atraumatic Eyes: PERRL, pale conjunctiva/corneas clear, EOM's intact, fundi benign, both [...] extremities Skin: Skin color, texture, turgor normal, still with Discrete round lesions on extremit ies not as pronounced as previously and warty excrecences on hands Lymph nodes: Cervical, supraclavicular, and axillary nodes normal Neurologic: CNII-XII intact. Normal strength, sensation and reflexes throughout DATA CBC: Lab Results Component Value Date WBC 9.9 05/01/2012 RBC 2.74* 05/01/2012 HGB 8.5* 05/01/2012 HCT 24.8* 05/01/2012 MCV 90.4 05/01/2012 MCH 31.0 05/01/2012 MCHC 34.3 05/01/2012 RDW 46.8 05/01/2012 PLT 253 05/01/2012 MPV 6.2 05/01/2012 DIFFTYPE AUTOMATED 05/01/2012 CMP: Lab Results Component Value Date NA 138 05/01/2012 K 4.0 05/01/2012 CL 109 05/01/2012 CO2 16* 05/01/2012 ANIONGAP 18 05/01/2012 GLUF 85 05/01/2012 BUN 57* 05/01/2012 CREATININE 6.21* 05/01/2012 BCR 9 05/01/2012 CA 7.2* 05/01/2012 CA 6.1* 04/02/2012 PROT 5.4 04/21/2012 ALB 2.6 04/21/2012 GLOB 2.8 04/21/2012 BILITOT 0.3 04/21/2012 ALP 107 04/21/2012 AST 30 04/21/2012 ALT 27 04/21/2012 EGFR 10* 05/01/2012 Calcium: No results found for this basename: CALCIUM Magnesium: Lab Results Component Value Date MG 2.0 05/01/2012 Phosphorus: Lab Results Component Value Date PHOS 5.4* 05/01/2012 PT/INR: Lab Results Component Value Date INR 1.3 05/01/2012 PTT: Lab Results Component Value Date APTT 36* 04/03/2012 [APTT U/A: Lab Results Component Value Date COLORU YELLOW 04/14/2012 COLORU YELLOW 04/02/2012 CLARITYU CLOUDY 04/14/2012 CLARITYU TURBID 04/02/2012 MEROPENEM 1.025 04/14/2012 LEUKOCYTESUR SMALL* 04/14/2012 NITRITE NEGATIVE 04/14/2012 NITRITE NEGATIVE 04/02/2012 UROBILINOGEN 0.2 04/14/2012 UROBILINOGEN 0.2 04/02/2012 PHUR 6.0 04/14/2012 PHUR 5.0 04/02/2012 BLOODU LARGE* 04/14/2012 KETONES TRACE* 04/14/2012 BILIRUBINUR NEGATIVE 04/14/2012 BILIRUBINUR NEGATIVE 04/02/2012 GLUCOSEU 250* 04/14/2012 PROBLEM LIST Principal Problem: *GI bleed Active Problems: Acute posthemorrhagic anemia MSSA (methicillin susceptible Staphylococcus aureus) infection Diabetes mellitus with ESRD (end-stage renal disease) Anemia due to blood loss HTN (hypertension) DVT of IJ and B/L cephalics ESRD (end stage renal disease) on dialysis Nodular type diabetic glomerulosclerosis ASSESSMENT & PLAN Patient Active Hospital Problem List: GI bleed (04/30/2012) Assessment: from anticoagulation Plan: transfuse another 1 unit PRBC today, Dr. Yeung will be doing colonoscopy this aftern oon MSSA (methicillin susceptible Staphylococcus aureus) infection (04/11/2012) Assessment: schronic Plan: still on IV Vancomycin post dialysis needs to complete 6 weeks total until 05/25/12 Diabetes mellitus with ESRD (end-stage renal disease) (04/14/2012) Assessment: better control than last admission Plan: continue ISS and renal diabetic diet when eating Acute post hemorrhagic Anemia (04/30/2012) Assessment: no more blood in stool Plan: continue to monitor Hb and HCT, continue to hold coumadin HTN (hypertension) (04/30/2012) Assessment: controlled Plan: adjust BP meds based on BP DVT of IJ and B/L cephalics (04/30/2012) Assessment: now with bleeding Plan: hold coumadin, probably due to permacath he had in hospital can probably hold off o n coumadin now that he has no permacath there. ESRD (end stage renal disease) on dialysis (04/30/2012) Assessment: on dialysis Plan: continue dialysis 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05/01/2012) Assessment: now in ESRD Plan: conttinue dialysis I explained radiology and lab findings and plan of care to patient and relative and they ve rbalized understanding and agreement and had no more questions for me after my interaction w ith them. I also told them somebody else from the hospitlist service will be seeing her ros michelle. More than 35 minutes spent directly face to face with patient for physical examination and talking with her at bedside as well as Computerized Physician Skein Spooler. Disposition: Home Code Status: Full Code Favio Dawkins MD 05/01/2012 onversion Transaction, Provider Unknown - 04/30/2012 3:22 PM PSTFormatting of this note might be diff erent from the original. Progress Notes by Jose Rafael Cesar RPH at 04/30/12 1522 Author: Jose Rafael Cesar RPH Service: (none) Author Type: Pharmacist Filed: 04/30/12 1522 Date of Service: 04/30/12 152 Status: Signed Trade Mark Attorney: Jose Rafael Cesar RPH (Pharmacist) Vancomycin note- Patient was on vancomycin therapy prior to admission- 750mg on each hemod ialysis day. His normal dialysis schedule had been mon, wed, fri. Per Dr. Reid, he won't be dialyzed today. I went ahead and did a random vancomycin level to see where he was at. The random level was 15.21. Will continue with the same dosing schedule of 750mg on HD day s. onver quique Transaction, Provider Unknown - 04/30/2012 10:38 AM PST Progress Notes by Kelley Toussaint RPH at 04/30/12 1038 Author: Kelley Toussaint RPH Service: (none) Author Type: Pharmacist Filed: 04/30/12 1038 Date of Service: 04/30/12 1038 Status: Signed Trade Mark Attorney: Kelley Toussaint RPH (Pharmacist) Renal Dosing Monitoring: Enriqueelida Potter 47 y.o. male Pharmacy dosing for renal function per Dr. Coon Patient on HD at home Plan per protocol: Medications dosed appropriately for HD. Pharmacy will continue monitoring patient for appropriate dosing per renal function. 04/30/2012 10:37 AM Pharmacist: Kelley Toussaint docume nted in this encounter H&P Notes Al Coon DO - 04/30/2012 6:20 AM PST H&P by Al Coon DO at 04/30/12 0620 Author: Al Coon DO Service: (none) Author Type: Physician Filed: 04/30/12 0632 Date of Service: 04/30/12619 Status: Signed Trade Mark Attorney: Al Coon DO (Physician) [facility] Service: Hospitalist Admission History & Physical Date of Admission: 04/30/2012 Reason for Admission: GI bleed History Obtained From: patient CHIEF COMPLAINT: Blood in stool HISTORY OF PRESENT ILLNESS The patient is a 47 y.o. male who presents with GI bleed, started yesterday, had several bl oody bowel movements last night which worsened each time, so he presented at [facility] in [place], [place], where he continued to have GI bleeding and was transferred to [facility] for GI and ESRD support. Patient was recently hospitalized at [facility], admitted 04/02/12, and diagnosed with MSSA bacte remia and ARF requiring HD. Patient had L PICC line, later removed, and permacath placed, an d HD started with Dr Cook asian studies professor. ID Dr Ford was also consulted. He is being treated w ith Vancomycin IV on HD days (MWF). After discharge, patient had US for vein mapping and was found to have upper extremity and IJ DVT's as shown in US report below, and patient was sta rted on Coumadin. INR last night at [facility]'s found to be 3.9 . In ED here the patient has been ordered to receive 2 PRBC's, 1 FFP, and IV protonix. Drs Otilia narayanan and Jen have been consulted. REVIEW OF SYSTEMS Review of Systems Constitutional: Positive for fatigue. Negative for fever and chills. HENT: Negative. Eyes: Negative. Respiratory: Negative. Cardiovascular: Negative. Gastrointestinal: Positive for blood in stool. Negative for nausea, vomiting, abdominal luca n, diarrhea and constipation. Genitourinary: Negative. Musculoskeletal: Negative. Skin: Positive for rash. Neurological: Negative. Hematological: Negative. Psychiatric/Behavioral: Negative. Past Medical History Diagnosis Date Hyperlipidemia Hypertension Diabetes mellitus type II Asthma Thyroid disease Anemia Abdominal pain, right upper quadrant 04/13/2012 DVT (deep venous thrombosis) Chronic kidney disease Dialysis patient GI bleed 04/30/2012 Past Surgical History Procedure Date Unlisted procedure arthroscopy Prior to Admission medications Medication Sig Start Date End Date Taking? Authorizing Provider albuterol (PROVENTIL) (2.5 MG/3ML) 0.083% nebulizer solution Take 2.5 mg by nebulization ev shahana 6 (six) hours as needed. Yes Historical Provider ALBUTEROL IN Inhale 2 puffs into the lungs daily. Yes Historical Provider amlodipine (NORVASC) 10 MG tablet Take 1 tablet by mouth daily. 04/15/12 04/15/13 Yes Johnathon Colbert MD aspirin 81 MG EC tablet Take 81 mg by mouth daily. Yes Historical Provider calcitRIOL (ROCALTROL) 0.25 MCG capsule Take 1 capsule by mouth daily. 04/15/12 04/15/13 Negrito Colbert MD levothyroxine (SYNTHROID, LEVOTHROID) 25 MCG tablet Take 1 tablet by mouth every morning be fore breakfast. 04/15/12 04/15/13 Yes Johnathon Colbert MD vancomycin (VANCOCIN) IVPB Administer 750 mg IV with hemodialysis on dialysis days 04/15/12 05/25/12 Yes Elsie Lerner MD warfarin (COUMADIN) 7.5 MG tablet Take 4 mg by mouth daily. Yes Historical Provider ergocalciferol (DRISDOL) 94108 UNITS capsule Take 1 capsule by mouth once a week. 04/15/12 04/15/13 Johnathon Colbert MD Allergies Allergen Reactions Lisinopril Other (See Comments) "makes me sweat and knocked me out" Penicillins Other (See Comments) unknown History reviewed. No pertinent family history. History Social History Marital Status: Spouse Name: N/A Number of Children: N/A Years of Education: N/A Occupational History Not on file. 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 PHYSICAL EXAM Vital Signs: BP 114/60 | Pulse 76 | Temp(Src) 98 F (36.7 C) (Oral) | Resp 18 | Ht 1.702 m (5' 7") | Wt 83.008 kg (183 lb) | BMI 28.66 kg/m2 | SpO2 96% Physical Exam [vitalsreviewed. Constitutional: He is oriented to person, place, and time. He appears well-developed and we ll-nourished. No distress. HENT: Head: Normocephalic and atraumatic. Mouth/Throat: Oropharynx is clear and moist. Eyes: Conjunctivae and EOM are normal. Pupils are equal, round, and reactive to light. No s cleral icterus. Neck: Normal range of motion. Neck supple. No JVD present. Cardiovascular: Normal rate, regular rhythm, normal heart sounds and intact distal pulses. No murmur heard. Pulmonary/Chest: Effort normal. No respiratory distress. He has no wheezes. He has no rales . He exhibits no tenderness. Abdominal: Soft. Bowel sounds are normal. He exhibits no distension. There is no tenderness . Musculoskeletal: Normal range of motion. He exhibits no edema and no tenderness. Neurological: He is alert and oriented to person, place, and time. He has normal reflexes. No cranial nerve deficit. Skin: Skin is warm and dry. He is not diaphoretic. No pallor. Lesions on arms / face Psychiatric: He has a normal mood and affect. His behavior is normal. Judgment and thought content normal. DATA CBC: Lab Results Component Value Date WBC 8.4 04/30/2012 RBC 2.05* 04/30/2012 HGB 6.4* 04/30/2012 HCT 18.8* 04/30/2012 MCV 91.6 04/30/2012 MCH 31.0 04/30/2012 MCHC 33.8 04/30/2012 RDW 52.9 04/30/2012 PLT 284 04/30/2012 MPV 6.2 04/30/2012 DIFFTYPE AUTOMATED 04/30/2012 At [facility] overnight: INR 3.9 PTT 40.7 Na 132 K 4.7 Cl 107 CO2 17 Glucose 99 BUN 36 Creatinine 5.79 AST 34 ALT 22 Alk phos 98 T Bili 0.2 Alb 2.8 Hgb 8.0 HCT 24.9 === === US UPPER EXTREMITY DIALYSIS MAPPING BILATERAL 04/24/2012 10:49 AM HISTORY: 47 years. Male. End-stage renal disease. TECHNIQUE: A high-resolution grayscale duplex transducer with color and pulsed Doppler capability was utilized for imaging. Study is technically hampered by the presence of dressing material ob scuring the right side of the neck and right subclavian region. FINDINGS: At the access site of the right IJ central venous catheter there is adjacent occl uding thrombus distally the subclavian vein is not able to be interrogated because of dressi ng material as previously described. The left internal jugular vein is normal in appearance as is the a left subclavian vein. RIGHT CEPHALIC VEIN (diameter/depth) (measurements in millimeters) At Origin: * / * * There is occluding thrombus proximal portion cephalic vein. Upper Humerus: * / * Mid Humerus: * / * At Elbow: * / * Upper Forearm: 2.7 / 5.2 Mid Forearm: 2.5 / 5.8 At Wrist: 2.5 / 3.0 RIGHT BASILIC VEIN (diameter/depth) (measurements in millimeters) Upper Humerus: 4.4 / 9.5 Mid Humerus: 3.8 / 9.1 At Elbow: 4.2 / 7.1 Upper Forearm: 2.8 / 5.3 Mid Forearm: 2.7 / 4.8 At Wrist: 3.1 / 4.4 RIGHT ANTECUBITAL VEIN: 6.6 / 4.8 RIGHT BRACHIAL VEIN (diameter/depth) (measurements in millimeters) Upper Humerus: 4.8 / 12.8 Mid Humerus: 4.1 / 16.5 At Elbow: 3.6 / 9.9 RIGHT AXILLARY VEIN: 5.5 / 14.4 RIGHT RADIAL ARTERY: 2.0 / 5.2 RIGHT ULNAR ARTERY: 1.7 / 9.9 RIGHT BRACHIAL ARTERY: 4.5 / 10.2 RIGHT AXILLARY ARTERY: 6.3 / 13.1 Right Selected Artery: Right Selected Vein: LEFT CEPHALIC VEIN (diameter/depth) (measurements in millimeters) At Origin: / Upper Humerus: 3.8 / 7.3 Mid Humerus: * / * At Elbow: 2.5 / 4.7 Upper Forearm: 2.7 / 6.4 Mid Forearm: 2.5 / 7.2 At Wrist: 2.5 / 3.9 LEFT BASILIC VEIN (diameter/depth) (measurements in millimeters) Upper Humerus: 4.1 / 10.8 Mid Humerus: 4.1 / 10.6 At Elbow: 4.4 / 8.9 Upper Forearm: 1.9 / 4.1 Mid Forearm: 1.9 / 2.1 At Wrist: 1.2 / 5.7 LEFT ANTECUBITAL VEIN: 2.7 / 2.1 LEFT BRACHIAL VEIN (diameter/depth) (measurements in millimeters) Upper Humerus: 4.4 / 14.3 Mid Humerus: 3.2 / 14.4 At Elbow: 3.3 / 10.0 LEFT AXILLARY VEIN: 6.4 / 11.4 LEFT RADIAL ARTERY: 2.2 / 8.2 LEFT ULNAR ARTERY: 2.1 / 11.8 LEFT BRACHIAL ARTERY: 5.1 / 12.5 LEFT AXILLARY ARTERY: 5.9 / 8.4 Left Selected Artery: Brachial triphasic flow Left Selected Vein: Basilic IMPRESSION: 1. Upper extremity vein mapping as described above. 2. Occluding thrombus within the right internal jugular vein and in the right cephalic vei n down to the level of the elbow. 3. Occluding thrombus in the midportion of the left cephalic vein. This report has been prepared with a voice recognition system. The possibility of "sound alike" swimming pool service technician errors, addition and/or deletions may occur. If there is any question about this report please contact the originating radiologist. LEM LIST Principal Problem: *GI bleed Active Problems: MSSA (methicillin susceptible Staphylococcus aureus) infection Diabetes mellitus with ESRD (end-stage renal disease) Anemia due to blood loss HTN (hypertension) ASSESSMENT & PLAN Patient Active Hospital Problem List: GI bleed (04/30/2012) Dr Li consulted by ED, plans on scoping patient today, keep NPO, give IV protonix 40 mg b id, give PRBC and recheck HH after, give FFP and recheck INR after. Anemia due to blood loss (04/30/2012) Due to GI bleed and Coumadin coagulopathy. Treatment as above. Consider heme/onc consult fo r further recommendation of management of DVT'S. DVT's R IJ, R cephalic, L cephalic. Likely at least partially due to line placements. Due to ongo ing bleeding and dropping of HGB/HCT, anticoagulation is being reversed for now. Consider he me/onc consult for further recommendation of management of DVT'S. MSSA (methicillin susceptible Staphylococcus aureus) infection (04/11/2012) Continue IV Vancomycin. Diabetes mellitus with ESRD (end-stage renal disease) (04/14/2012) Dr Reid consulted. MWF schedule normally. HTN (hypertension) (04/30/2012) Appears to be hemodynamically stable at present. Disposition: Inpatient Primary Care Physician: [facility] Al Coon DO 04/30/2012 6:32 AM documented in this enc ounter Consult Notes John Yeung - 04/30/2012 2:28 PM PST Consults by John Yeung MD at 04/30/12 6145 Author: John Yeung MD Service: Gastroenterology Author Type: Physician Filed: 04/30/12 1434 Date of Service: 04/30/12 1428 Status: Signed Trade Mark Attorney: John Yeung MD (Physician) Consult Orders: 1. Consult to Gastroenterology [[id number]] ordered by Al Coon DO at 04/30/12 0606 [facility] Service: Gastroenterology Initial Consult Note Date of Admission: 04/30/2012 Reason for Consultation: GI bleeding Requesting Physician: Dr. Coon History Obtained From: patient HISTORY OF PRESENT ILLNESS The patient is a 47 y.o. male with significant past medical history of Multiple medical pr oblems as below who presents with GI bleed, started yesterday, had several bloody bowel move ments last night which worsened each time, so he presented at [facility] in [place], [place], where he continued to have GI bleeding and was transferred to [facility] for GI and ES RD support. Patient was recently hospitalized at [facility], admitted 04/02/12, and diagnosed with MSSA bacteremia and ARF requiring HD. Patient had L PICC line, later removed, and permacath placed, and HD started with Dr Cook asian studies professor. ID Dr Ford was also consulted. He is bein g treated with Vancomycin IV on HD days (MWF). After discharge, patient had US for vein tyler ing and was found to have upper extremity and IJ DVT's as shown in US report below, and mahamed ent was started on Coumadin. INR last night at [facility] found to be 3.9 . In ED here th e patient has been ordered to receive 2 PRBC's, 1 FFP. He had EGD and colonoscopy 1 or 2 years back in [place] and unremarkable per his recall . Since admitted he had no more episodes of blood in the stool. REVIEW OF SYSTEMS Negative except for pertinent items noted in HPI. Past Medical History Diagnosis Date Hyperlipidemia Hypertension Diabetes mellitus type II Asthma Thyroid disease Anemia Abdominal pain, right upper quadrant 04/13/2012 DVT (deep venous thrombosis) Chronic kidney disease Dialysis patient GI bleed 04/30/2012 Past Surgical History Procedure Date Unlisted procedure arthroscopy Allergies Allergen Reactions Lisinopril Other (See Comments) [...] tablet by mouth daily. 30 tablet 1 aspirin 81 MG EC tablet Take 81 mg by mouth daily. calcitRIOL (ROCALTROL) 0.25 MCG capsule Take 1 capsule by mouth daily. 30 capsule 1 levothyroxine (SYNTHROID, LEVOTHROID) 25 MCG tablet Take 1 tablet by mouth every mornin g before breakfast. 30 tablet 0 vancomycin (VANCOCIN) IVPB Administer 750 mg IV with hemodialysis on dialysis days 17 Doses 0 warfarin (COUMADIN) 7.5 MG tablet Take 4 mg by mouth daily. ergocalciferol (DRISDOL) 48548 UNITS capsule Take 1 capsule by mouth once a week. 3 ca psule 0 Scheduled Medications amlodipine 10 mg Oral Daily calcitRIOL 0.25 mcg Oral Daily ergocalciferol 50,000 Units Oral Weekly levothyroxine 25 mcg Oral QAM AC lidocaine buffered 1% pantoprazole 40 mg Intravenous Once pantoprazole 40 mg Intravenous BID polyethylene glycol 4,000 mL Oral Once sodium chloride 10 mL Intravenous Q8H vancomycin 750 mg Intravenous See Admin Instructions Continuous Infusions sodium chloride PRN Medications acetaminophen, acetaminophen, albuterol, ondansetron, ondansetron, polyethylene glycol, zol pidem History reviewed. No pertinent family history. History Social History Marital Status: Spouse Name: N/A Number of Children: N/A Years of Education: N/A Occupational History Not on file. Social History Main Topics Smoking status: Never Smoker Smokeless tobacco: Never Used Alcohol Use: No Drug Use: Yes Special: Marijuana Sexually Active: Other Topics Concern Not on file Social History Narrative , LIVES WITH [employer]; KIDSUNEMPLOYED BEFORE WORKED AT [employer] IN [place]/ [employer] COURSESMOKE NONE ETOH QUIT 15 YEARS AGODRUGS: USES METHAMPHETAMINES PER PATIENTF ATHER HAS COLON CANCER, HEART DISEASEMOTHER 15 YEARS AGONO FH KIDNEY PROBLEMS. PHYSICAL EXAM Vital Signs: BP 115/57 | Pulse 79 | Temp(Src) 97.9 F (36.6 C) (Oral) | Resp 16 | Ht 1.702 m (5' 7.01 ") | Wt 82.7 kg (182 lb 5.1 oz) | BMI 28.55 kg/m2 | SpO2 100% Temp: [97.7 F (36.5 C)-98.4 F (36.9 C)] 97.9 F (36.6 C) (04/30 1159) BP: (98-146)/(51-61) 115/57 mmHg (04/30 1159) Heart Rate: [76-83] 79 (04/30 1159) Resp: [15-20] 16 (04/30 1159) SpO2: [96 %-100 %] 100 % (04/30 1159) Height: [170.2 cm (5' 7")-170.2 cm (5' 7.01")] 170.2 cm (5' 7.01") (04/30 930) Weight: [82.7 kg (182 lb 5.1 oz)-83.008 kg (183 lb)] 82.7 kg (182 lb 5.1 oz) (04/30 930) BMI (Calculated): [28.6-28.7] 28.6 (04/30 930) Constitutional: He is oriented to person, place, and time. He appears well-developed and we ll-nourished. No distress. HENT: Head: Normocephalic and atraumatic. Mouth/Throat: Oropharynx is clear and moist. Eyes: Conjunctivae and EOM are normal. Pupils are equal, round, and reactive to light. No s cleral icterus. Neck: Normal range of motion. Neck supple. No JVD present. Cardiovascular: Normal rate, regular rhythm, normal heart sounds and intact distal pulses. No murmur heard. Pulmonary/Chest: Effort normal. No respiratory distress. He has no wheezes. He has no rales . He exhibits no tenderness. Abdominal: Soft. Bowel sounds are normal. He exhibits no distension. There is no tenderness . Musculoskeletal: Normal range of motion. He exhibits no edema and no tenderness. Neurological: He is alert and oriented to person, place, and time. He has normal reflexes. No cranial nerve deficit. Skin: Skin is warm and dry. He is not diaphoretic. No pallor. Lesions on arms / face Psychiatric: He has a normal mood and affect. His behavior is normal. Judgment and thought content normal. DATA CBC: Lab Results Component Value Date WBC 8.4 04/30/2012 RBC 2.05* 04/30/2012 HGB 7.3* 04/30/2012 HCT 21.3* 04/30/2012 MCV 91.6 04/30/2012 MCH 31.0 04/30/2012 MCHC 33.8 04/30/2012 RDW 52.9 04/30/2012 PLT 284 04/30/2012 MPV 6.2 04/30/2012 DIFFTYPE AUTOMATED 04/30/2012 Hemoglobin/Hematocrit: Lab Results Component Value Date HGB 7.3* 04/30/2012 HCT 21.3* 04/30/2012 CMP: Lab Results Component Value Date NA 131* 04/21/2012 K 5.2 04/21/2012 CL 108 04/21/2012 CO2 16 04/21/2012 ANIONGAP 12 04/21/2012 GLUF 123* 04/21/2012 BUN 33* 04/21/2012 CREATININE 5.9* 04/21/2012 BCR 5.6 04/21/2012 CA 7.2* 04/21/2012 CA 6.1* 04/02/2012 PROT 5.4 04/21/2012 ALB 2.6 04/21/2012 GLOB 2.8 04/21/2012 BILITOT 0.3 04/21/2012 ALP 107 04/21/2012 AST 30 04/21/2012 ALT 27 04/21/2012 EGFR 10.0 04/21/2012 PT/INR: Lab Results Component Value Date INR 1.0 04/09/2012 PROBLEM LIST Principal Problem: *GI bleed Active Problems: MSSA (methicillin susceptible Staphylococcus aureus) infection Diabetes mellitus with ESRD (end-stage renal disease) Anemia due to blood loss HTN (hypertension) DVT of IJ and B/L cephalics ESRD (end stage renal disease) on dialysis ASSESSMENT & PLAN Continue protonix drip. Likely he need double endoscopy and will pre with Goljaney and meliton ortegae EGD and colonoscopy in AM. Monitor H/H and transfusion as needed. Repeat INR correct c oagulopathy and lower down INR to < 1.7 tomorrow before the procedure. Code Status: Full Code Primary Care Physician: [facility] Thank you for this consult. JOHN YEUNG MD 04/30/2012 ranklin Sean T - 04/30/20 12 12:41 PM PST Consult* by Sean Reid MD at 04/30/12 1241 Author: Sean Reid MD Service: Nephrology Author Type: Physician Filed: 04/30/12 1336 Date of Service: 04/30/12 1241 Status: Signed Trade Mark Attorney: Sean Reid MD (Physician) [facility] Service: NEPHROLOGY CONSULT Note Enrique Potter 47 y.o. [id number] male [facility] Hospital Day: LOS: 0 days Date of Admission: 04/30/2012 Requesting Physician: ED provider/ Hospitalist Reason for Admission: GI bleed History Obtained From: patient, CHIEF COMPLAINT: GI Bleeding Blood in stool HISTORY OF PRESENT ILLNESS The patient is a 47 y.o. male who presents with GI bleed, started yesterday, had several bl oody bowel movements last night which worsened each time, so he presented at [facility] in [place], [place], where he continued to have GI bleeding and was transferred to [facility] for GI and ESRD support. Patient was recently hospitalized at [facility], admitted 04/02/12, and diagnosed with MSSA bacte remia and ARF requiring HD. Patient had L PICC line, later removed, and permacath placed, an d HD started with Dr Cook asian studies professor. ID Dr Ford was also consulted. He is being treated w ith Vancomycin IV on HD days (MWF). After discharge, patient had US for vein mapping and was found to have upper extremity and IJ DVT's as shown in US report below, and patient was sta rted on Coumadin. INR last night at [facility] found to be 3.9 . In ED here the patient has been ordered to receive 2 PRBC's, 1 FFP, and IV protonix.,Jen gee been consulted. HISTORY OF PRESENT ILLNESS Nephrology consulted for evaluation and management of ESRD AND MAINTENANCE HD -- UNDER DR ASHFORD AT [place] [facility] ACUTE GI BLEEDING, SEVERE Associated with fluid electrolyte acid base imbalances HAPPILY FOR 22 YEARS, LIVES in [place] AT HOME WITH , [employer]; KIDSUNE MPLOYED BEFORE WORKED AT [employer] IN [place] COU[employer]SE SMOKE NONE ETOH QUIT 15 YEARS AGO, USES METHAMPHETAMINES PER PATIENT, NOW QUIT 03/2012 FATHER HAS COLON CANCER, HEART DISEASEMOTHER 15 YEARS AGONO FH KIDNEY PROBLEMS. Past Medical History Diagnosis Date Hyperlipidemia Hypertension [...] tablet by mouth daily. 30 tablet 1 aspirin 81 MG EC tablet Take 81 mg by mouth daily. calcitRIOL (ROCALTROL) 0.25 MCG capsule Take 1 capsule by mouth daily. 30 capsule 1 levothyroxine (SYNTHROID, LEVOTHROID) 25 MCG tablet Take 1 tablet by mouth every mornin g before breakfast. 30 tablet 0 vancomycin (VANCOCIN) IVPB Administer 750 mg IV with hemodialysis on dialysis days 17 Doses 0 warfarin (COUMADIN) 7.5 MG tablet Take 4 mg by mouth daily. ergocalciferol (DRISDOL) 14439 UNITS capsule Take 1 capsule by mouth once a week. 3 ca psule 0 Allergies Allergen Reactions Lisinopril Other (See Comments) "makes me sweat and knocked me out" Penicillins Other (See Comments) unknown History reviewed. No pertinent family history. History Smoking status Never Smoker Smokeless tobacco Never Used History Alcohol Use No History Drug Use Yes Special: Marijuana Home Medications Prescriptions prior to admission Medication Sig Dispense Refill albuterol (PROVENTIL) (2.5 MG/3ML) 0.083% nebulizer solution Take 2.5 mg by nebulizatio n every 6 (six) hours as needed. ALBUTEROL IN Inhale 2 puffs into the lungs daily. amlodipine (NORVASC) 10 MG tablet Take 1 tablet by mouth daily. 30 tablet 1 aspirin 81 MG EC tablet Take 81 mg by mouth daily. calcitRIOL (ROCALTROL) 0.25 MCG capsule Take 1 capsule by mouth daily. 30 capsule 1 levothyroxine (SYNTHROID, LEVOTHROID) 25 MCG tablet Take 1 tablet by mouth every mornin g before breakfast. 30 tablet 0 vancomycin (VANCOCIN) IVPB Administer 750 mg IV with hemodialysis on dialysis days 17 Doses 0 warfarin (COUMADIN) 7.5 MG tablet Take 4 mg by mouth daily. ergocalciferol (DRISDOL) 92608 UNITS capsule Take 1 capsule by mouth once a week. 3 ca psule 0 Scheduled Medications amlodipine 10 mg Oral Daily calcitRIOL 0.25 mcg Oral Daily ergocalciferol 50,000 Units Oral Weekly levothyroxine 25 mcg Oral QAM AC lidocaine buffered 1% pantoprazole 40 mg Intravenous Once pantoprazole 40 mg Intravenous BID sodium chloride 10 mL Intravenous Q8H vancomycin 750 mg Intravenous See Admin Instructions Continuous Infusions PRN Medications acetaminophen, acetaminophen, albuterol, ondansetron, ondansetron, polyethylene glycol, zol pidem Allergy: Allergies Allergen Reactions Lisinopril Other (See Comments) "makes me sweat and knocked me out" Penicillins Other (See Comments) unknown OBJECTIVE Vital Signs: BP 115/57 | Pulse 79 | Temp(Src) 97.9 F (36.6 C) (Oral) | Resp 16 | Ht 1.702 m (5' 7.01 ") | Wt 82.7 kg (182 lb 5.1 oz) | BMI 28.55 kg/m2 | SpO2 100% I&O Detailed Table: Weight change: Hemodynamics Last 24hrs: REVIEW OF SYSTEMS Constitutional: Positive for fatigue. Negative for fever and chills. HENT: Negative. Eyes: Negative. Respiratory: Negative. Cardiovascular: Negative. Gastrointestinal: Positive for blood in stool. Negative for nausea, vomiting, abdominal luca n, diarrhea and constipation. Genitourinary: Negative. Musculoskeletal: Negative. Skin: Positive for rash. Neurological: Negative. Hematological: Negative. Psychiatric/Behavioral: Negative. Denies any use of NSAIDs, Adam 2 inhibitors, herbal medication, recent IV contras Rest of the ROS Unremarkable. NO FAMILY HX OF KIDNEY DISEASE Examination: Constitutional: Alert and oriented to person, [...] and dry. GENERALIZED MACULOPAPULAR AND PUSTULAR RASH, LOT BETTER NOW Psychiatric: AXOX3, mood and affect ok, memory seems to be intact. NO LYMPHADENOPATHY S/P RENAL BX 04/10/2012, SEVERE SCARRING LABS: Recent Results (from the past 48 hour(s)) CBC W/AUTO DIFF (REFLEX TO MANUAL) Collection Time 04/30/12 4:56 AM Component Value Range WBC 8.4 3.8 - 11.0 K/uL RBC 2.05 (*) 4.20 - 5.70 M/uL HGB 6.4 (*) 13.2 - 17.0 g/dL HCT 18.8 (*) 39.0 - 50.0 % MCV 91.6 80.0 - 100.0 fl MCH 31.0 27.0 - 34.0 pg MCHC 33.8 32.0 - 35.5 g/dL RDW SD 52.9 37 - 53 fl PLT 284 150 - 400 K/uL MPV 6.2 DIFF TYPE AUTOMATED NEUTROPHILS 53.5 40 - 75 % LYMPHOCYTES 13.4 (*) 15 - 48 % MONOCYTES 7.4 0 - 12 % EOSINOPHILS 24.9 (*) 0 - 7 % BASOPHILS 0.8 0 - 2 % NEUTROPHILS ABS 4.5 1.9 - 7.4 K/uL LYMPHOCYTES ABS 1.1 1.0 - 3.9 K/uL MONOCYTES ABS 0.6 0 - 0.8 K/uL EOSINOPHILS ABS 2.1 (*) 0 - 0.5 K/uL BASOPHILS ABS 0.1 0 - 0.1 K/uL Platelet Estimate ADEQUATE Diff Comment SLIDE SCANNED, AGREES WITH AUTOMATED RESULTS. MORPHOLOGY 1+ TYPE AND SCREEN Collection Time 04/30/12 4:56 AM Component Value Range ABO/RH(D) O POSITIVE ANTIBODY SCREEN NEGATIVE ARM BAND NUMBER [id number] UNIT NUMBER [id number] UNIT NUMBER Value: Testing performed at [facility];[address];[place] [address] BLOOD COMPONENT TYPE Value: LEUKODEPLETED PC,IRR Testing performed at [facility];[address] [place] [address];[place] [address] UNIT DIVISION Value: 00 Testing performed at [facility];[address] [place] [address] STATUS OF UNIT Value: ISSUED Testing performed at [facility];[address] [place] [address] TRANSFUSION STATUS OK TO TRANSFUSE CROSSMATCH RESULT COMPATIBLE UNIT NUMBER [id number] BLOOD COMPONENT TYPE LEUKODEPLETED PC,IRR UNIT DIVISION 00 STATUS OF UNIT ISSUED TRANSFUSION STATUS OK TO TRANSFUSE CROSSMATCH RESULT COMPATIBLE PREPARE PLASMA (BLOOD BANK) Collection Time 04/30/12 6:14 AM Component Value Range UNIT NUMBER [id number] UNIT NUMBER Value: Testing performed at [facility];[address] [place] [address];[place] [address] BLOOD COMPONENT TYPE Value: PLASMA,THAWED Testing performed at [facility];[address] [place] [address] UNIT DIVISION Value: 00 Testing performed at [facility];[address] [place] [address];[place] [address] STATUS OF UNIT Value: ISSUED Testing performed at [facility];[address] [place] [address] TRANSFUSION STATUS OK TO TRANSFUSE ] Lab Results Component Value Date FERRITIN 139 04/02/2012 LABIRON 38 04/02/2012 No results found for this basename: labprot IMAGING: Ultrasound Upper Extremity Dialysis Mapping Bilateral 04/24/2012 ENRIQUE POTTER US UPPER EXTREMITY DIALYSIS MAPPING BILATERAL 04/24/2012 [...] r eport please contact the originating radiologist. Ultrasound Retroperitoneal Limited 04/02/2012 HISTORY: Acute renal [...] Patient Active Problem List Diagnoses Date Noted GI bleed 04/30/2012 Anemia due to blood loss 04/30/2012 HTN (hypertension) 04/30/2012 DVT of IJ and B/L cephalics 04/30/2012 Hypokalemia 04/16/2012 Diabetes mellitus with ESRD (end-stage renal disease) 04/14/2012 Hyponatremia 04/14/2012 Obesity (BMI 30-39.9) 04/14/2012 Class: Chronic Hypoalbuminemia 04/11/2012 MSSA (methicillin susceptible Staphylococcus aureus) infection 04/11/2012 Class: Acute Hypothyroidism 04/07/2012 Rash and nonspecific skin eruption 04/03/2012 Vitamin d deficiency 04/03/2012 Secondary hyperparathyroidism (of renal origin) 04/03/2012 Type II or unspecified type diabetes mellitus without mention of complication, not stat ed as uncontrolled 04/02/2012 Amphetamine and other psychostimulant dependence, continuous 04/02/2012 Unspecified asthma 04/02/2012 Anemia 04/02/2012 ASSESSMENT & PLAN Principal Problem: *GI bleed Active Problems: MSSA (methicillin susceptible Staphylococcus aureus) infection Diabetes mellitus with ESRD (end-stage renal disease) Anemia due to blood loss HTN (hypertension) DVT of IJ and B/L cephalics ESRD DUE TO DIABETES AND HYPERTENSIVE NEPHROSCLEROSIS ON HD AT [facility] HD UNIT UNDER DR COOK ALL WORK UP FOR VASCULITIS NEGATIVE LAST ADM C3, C4 levels wnl, hep b/c NR, RF NEG, KAPPA/LAMBDA RATIO WNL, HIV NR RASHID/LAMBDA RATIO 1.89 ANCA, ANTI GBM neg RENAL BX : renal bx 04/10/2012 SHOWED ESRD WITH LOTS OF SCARRING ,He is s/p diagnostic kidney biopsy which shows advanced fibrotic changes with little chance of recovery. Specifically AIN is not demonstrated. WILL HOLD HD TODAY TILL HE GETS STABILIZED by tomorrow NS 50 ml/hr for total 2 L only Renal diet AVOID NSAIDS/ ADAM-2 INHIBITORS AVOID NEPHROTOXIC MEDS INCLUDING AMINOGLYCOSIDES/ IV CONTRAST Assess daily for need for hd Dose all meds for crcl less than 15 mls/min ANEMIA STABLE Hb 6.4 GETTING 2 PRBCS , and FFP DUE TO GI BLEED HTN WATCH BP CLOSELY FOR NOW NARCOTIC ABUSER INCLUDING METH, RECENTLY QUIT HYPERPHOSPHATEMIA LOW P DIET SECONDARY HYPERPARATHYROIDISM LAST PTH 255 GETTING IV HECTORAL DURING HD PER PROTOCOL VITAMIN D,25 HYDROXY <12 CONT VIT D 2000 unit po daily CASE DISCUSSED IN DETAIL WITH PATIENT/ FAMILY/ HOSPITALIST, ANSWERS ALL QUESTIONS IN DETAIL , VERBALIZES UNDERSTANDING S/P RENAL BX 04/10/2012 He is s/p diagnostic kidney biopsy which shows advanced fibrotic changes with little chance of recovery. Specifically AIN is not demonstrated. Time spend over 70 minutes of time spent evaluating the patient, reviewing the data, formu lating a plan and discussion with patient and hospitalist team, more than half of the time spent in counseling and coordination of care. I thank Dr COON for giving me the opportunity to take part in the care of this patient w ith multiple complex medical problems Time spend over 70 minutes of time spent evaluating the patient, reviewing the data, formu lating a plan and discussion with patient and hospitalist team, more than half of the time s pent in counseling and coordination of care. SEAN REID MD 04/30/2012 documente d in this encounter ED Notes Conversion Transaction, Provider Unknown - 04/30/2012 7:50 AM PSTFormatting of this note m ight be different from the original. ED Notes by Kavita Fitzgerald RN at 04/30/12749 Author: Kavita Fitzgerald RN Service: (none) Author Type: Registered Nurse Filed: 04/30/12749 Date of Service: 04/30/12749 Status: Signed Trade Mark Attorney: Kavita Fitzgerald RN (Registered Nurse) HARDIK HUSSEIN notified by HARDIK Lee that room has not been approved as yet. Kavita Fitzgerald RN 04/30/12749 onver quique Transaction, Provider Unknown - 04/30/2012 7:49 AM PST ED Notes by Kavita Fitzgerald RN at 04/30/12748 Author: Kavita Fitzgerald RN Service: (none) Author Type: Registered Nurse Filed: 04/30/12748 Date of Service: 04/30/12748 Status: Signed Trade Mark Attorney: Kavita Fitzgerald RN (Registered Nurse) ED RN Lead contacting 4 RP Lead to learn when this pt. May go to the floor. Kavita Fitzgerald RN 04/30/12748 onver quique Transaction, Provider Unknown - 04/30/2012 7:10 AM PST ED Notes by Kavita Fitzgerald RN at 04/30/12709 Author: Kavita Fitzgerald RN Service: (none) Author Type: Registered Nurse Filed: 04/30/12710 Date of Service: 04/30/12709 Status: Signed Trade Mark Attorney: Kavita Fitzgerald RN (Registered Nurse) RN notified by ED Lead that the pt. May not go to 425 until 0730 Kavita Fitzgerald RN 04/30/12710 onver quique Transaction, Provider Unknown - 04/30/2012 6:58 AM PST ED Notes by Kavita Fitzgerald RN at 04/30/12657 Author: Kavita Fitzgerald RN Service: (none) Author Type: Registered Nurse Filed: 04/30/12657 Date of Service: 04/30/12657 Status: Signed Trade Mark Attorney: Kavita Fitzgerald RN (Registered Nurse) Room 425 approved x 1 hour. Floor not ready for pt. As yet. Blood is infusing. Kavita Fitzgerald RN 04/30/12657 onver quique Transaction, Provider Unknown - 04/30/2012 5:44 AM PST ED Notes by Salima Rodriguez RN at 04/30/12543 Author: Salima Rodriguez RN Service: (none) Author Type: Registered Nurse Filed: 04/30/12544 Date of Service: 04/30/12543 Status: Signed Trade Mark Attorney: Salima Rodriguez RN (Registered Nurse) Patient up to have BM copious amount of anna blood in toilet, patient states "its like pur e water and I feel weaker and weaker every time I go to the bathroom." Salima Rodriguez RN 04/30/1245 onver quique Transaction, Provider Unknown - 04/30/2012 5:31 AM PST ED Notes by Salima Rodriguez RN at 04/30/12530 Author: Salima Rodriguez RN Service: (none) Author Type: Registered Nurse Filed: 04/30/12530 Date of Service: 04/30/12530 Status: Signed Trade Mark Attorney: Salima Rodriguez RN (Registered Nurse) Consent form for blood explain and signed by patient Salima Rodriguez RN 04/30/12530 onver quique Transaction, Provider Unknown - 04/30/2012 5:30 AM PST ED Notes by Tucker Garcia RN at 04/30/12529 Author: Tucker Garcia RN Service: (none) Author Type: Registered Nurse Filed: 04/30/12550 Date of Service: 04/30/12529 Status: Signed Trade Mark Attorney: Tucker Garcia RN (Registered Nurse) CRITICAL LAB VALUES: Hemoglobin 6.4, hematocrit 18.8, read back, Dr. Martínez notified. Tucker Garcia RN 04/30/12550 onver quique Transaction, Provider Unknown - 04/30/2012 4:52 AM PST ED Notes by Salima Rodriguez RN at 04/30/12451 Author: Salima Rodriguez RN Service: (none) Author Type: Registered Nurse Filed: 04/30/12451 Date of Service: 04/30/12451 Status: Signed Trade Mark Attorney: Salima Rodriguez RN (Registered Nurse) Lab at bedside. Salima Rodriguez RN 04/30/12451 odine Huan greco MD - 04/30/2012 4:46 AM PST ED Provider Notes by Huan Martínez DO at 04/30/12445 Author: Huan Martínez DO Service: (none) Author Type: Physician Filed: 05/01/12 0015 Date of Service: 04/30/12445 Status: Signed Trade Mark Attorney: Huan Martínez DO (Physician) [facility] Department of Emergency Medicine 04/30/2012 History of Present Illness Patient Identification Enrique Potter is a 47 y.o. male. Patient information was obtained from patient. History/Exam limitations: none. Patient presented to the Emergency Department by: [facility] Chief Complaint Chief Complaint Patient presents with GI Bleeding Transfer from [facility] for LGIB. 04:46. Transfer pt from [facility] presents to the ED with GI bleeding that started yesterday around 23:00. Pt reports about three episodes of dark bloody stools. Complains of weakness, dizziness, and mild abdominal cramping. Pt was recently started on Coumadin last week due to DVT's in bilateral upper extremities. Onset of symptoms was abrupt, with an inte rmittent course since that time. Severity is described as moderate. The patient reports noth ing worsens symptoms, and nothing relieves symptoms. Pt is on dialysis and recently diagnose d with ESRD. Pt's asian studies professor is Dr. Cook. Dr. Lerner for MSSA. Recent PICC line and AV f istula placement. No vomiting, fever, SOB, or chest pain. Past Medical History Diagnosis Date Hyperlipidemia Hypertension Diabetes mellitus type II Asthma Thyroid disease Anemia Abdominal pain, right upper quadrant 04/13/2012 DVT (deep venous thrombosis) Chronic kidney disease Dialysis patient GI bleed 04/30/2012 Past Surgical History Procedure Date Unlisted procedure arthroscopy Prior to Admission medications Medication Sig Start Date End Date Taking? Authorizing Provider albuterol (PROVENTIL) (2.5 MG/3ML) 0.083% nebulizer solution Take 2.5 mg by nebulization ev shahana 6 (six) hours as needed. Yes Historical Provider ALBUTEROL IN Inhale 2 puffs into the lungs daily. Yes Historical Provider amlodipine (NORVASC) 10 MG tablet Take 1 tablet by mouth daily. 04/15/12 04/15/13 Yes Johnathon Colbert MD aspirin 81 MG EC tablet Take 81 mg by mouth daily. Yes Historical Provider calcitRIOL (ROCALTROL) 0.25 MCG capsule Take 1 capsule by mouth daily. 04/15/12 04/15/13 Negrito Colbert MD levothyroxine (SYNTHROID, LEVOTHROID) 25 MCG tablet Take 1 tablet by mouth every morning be fore breakfast. 04/15/12 04/15/13 Yes Johnathon Colbert MD vancomycin (VANCOCIN) IVPB Administer 750 mg IV with hemodialysis on dialysis days 04/15/12 05/25/12 Yes Elsie Lerner MD warfarin (COUMADIN) 7.5 MG tablet Take 4 mg by mouth daily. Yes Historical Provider ergocalciferol (DRISDOL) 45799 UNITS capsule Take 1 capsule by mouth once a week. 04/15/12 04/15/13 Johnathon Colbert MD Allergies Allergen Reactions Lisinopril Other (See Comments) "makes me sweat and knocked me out" Penicillins Other (See Comments) unknown History Social History Marital Status: Spouse Name: N/A Number of Children: N/A Years of Education: N/A Occupational History Not on file. 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 History reviewed. No pertinent family history. Review of Systems Review of Systems Constitutional: Negative for fever and chills. Respiratory: Negative for cough and shortness of breath. Cardiovascular: Negative for chest pain. Gastrointestinal: Positive for abdominal pain (minimal) and blood in stool. Negative for vo miting. Skin: Negative for itching and rash. Neurological: Positive for dizziness and weakness. All other systems reviewed and are negative. Physical Exam BP 146/60 | Pulse 82 | Temp(Src) 98 F (36.7 C) (Oral) | Resp 20 | Ht 1.702 m (5' 7") | Wt 83.008 kg (183 lb) | BMI 28.66 kg/m2 | SpO2 100% Vitals: hypertensive, otherwise normal Pulse Oximetry Interpretation: Normal General: Alert, no active distress Eyes: Normal inspection, pupils equal and round, non-icteric ENT: Ears normal Nose normal Pharynx normal Neck: Normal inspection Supple Full ROM Cardiovascular: Normal rate and rhythm, no extra sounds Respiratory: No respiratory distress or wheezing Abdomen: Soft, non-tender, non-distended Back: Normal inspection Skin: Color normal Warm and dry Extremities: BRADY Neuro: No gross motor/sensory deficit Medical Decision Making and Emergency Department Course ED Department Course 04:33. Transfer pt from [facility] presents to the ED with GI bleeding that started yesterday around 23:00. Pt reports about three episodes of dark bloody stools. Complains of weakness, dizziness, and mild abdominal cramping. Pt was recently started on Coumadin last week due to DVT's in bilateral upper extremities. Pt is on dialysis and recently diagnosed with ESRD. After introducing myself to the patient, I have performed a careful history and p hysical examination. I have formulated the differential diagnosis that needs to be addresse d during this Emergency Room visit, briefly discussed this differential with the patient, an d then discussed with them the plan of care. I have also addressed the risks and benefits o f all diagnostic and treatment modalities planned for this ED visit. Will order CBC and type & screen. Protonix 40 mg IV given. 04:40. Reviewed lab results. CMP showed sodium at 132, potassium at 4.7, CO2 at 17, glucose at 99, BUN at 36, creatinine at 5.79, GFR at 10, and albumin at 2.8. CBC shows WBC at 10.2, RBC at 2.72, HGB at 8.0, HCT at 24.9, and platelet count at 351. INR at 3.9 and PTT at 40.7 . 05:27. Critical H&H: 6.4 and 18.8. This has dropped since his stay at [facility]. Will plan to have a unit of RBC transfused. Type & crossmatch ordered. 05:33. Will admit pt at this time and place call to hospitalist. 05:44. Pt had a BM with anna blood in toilet. 05:48. Discussed pt's case with Dr. Yeung, GI, who would like for the pt to be kept NPO. Mathew michael scope the pt today. 05:50. Discussed pt's case with Dr. Coon, hospitalist, who will see and admit the pt. He w ill consult with the pt's asian studies professor, Dr. Cook. Filed Vitals: 04/30/12203104/30/12 2151 04/30/12 2222 04/30/12 2330 BP: 146/69 140/70 145/73 142/70 Pulse: 90 92 94 92 Temp: 97.9 F (36.6 C) 98.4 F (36.9 C) 98.2 F (36.8 C) 98.3 F (36.8 C) TempSrc: Oral Oral Oral Resp: 20 20 20 Height: Weight: SpO2: 100% 100% 100% Records Reviewed Old medical records with comparison of previous laboratory results, diagnostic imaging and discharge summary of most recent admission. Nursing notes reviewed for chief complaint, medications, clinical presentation and vital si gns Laboratory Evaluation Results Procedure Component Value Ref Range Date/Time CBC w/auto diff (reflex to manual) [[id number]] (Abnormal) Collected:04/30/12 0456 Order Status:Completed Updated:04/30/12608 Specimen Information:Blood WBC 8.4 3.8 - 11.0 K/uL RBC 2.05 (L) 4.20 - 5.70 M/uL HGB 6.4 (LL) 13.2 - 17.0 g/dL HCT 18.8 (LL) 39.0 - 50.0 % MCV 91.6 80.0 - 100.0 fl MCH 31.0 27.0 - 34.0 pg MCHC 33.8 32.0 - 35.5 g/dL RDW SD 52.9 37 - 53 fl PLT 284 150 - 400 K/uL MPV 6.2 fl DIFF TYPE AUTOMATED NEUTROPHILS 53.5 40 - 75 % LYMPHOCYTES 13.4 (L) 15 - 48 % MONOCYTES 7.4 0 - 12 % EOSINOPHILS 24.9 (H) 0 - 7 % BASOPHILS 0.8 0 - 2 % NEUTROPHILS ABS 4.5 1.9 - 7.4 K/uL LYMPHOCYTES ABS 1.1 1.0 - 3.9 K/uL MONOCYTES ABS 0.6 0 - 0.8 K/uL EOSINOPHILS ABS 2.1 (H) 0 - 0.5 K/uL BASOPHILS ABS 0.1 0 - 0.1 K/uL Platelet Estimate ADEQUATE Diff Comment Result: SLIDE SCANNED, AGREES WITH AUTOMATED RESULTS. MORPHOLOGY 1+ ABO/RH: O positive I personally reviewed the lab results and they have been posted to the chart. Pertinent po sitive and negative findings have been addressed appropriately. Radiology and EKG Evaluation Imaging Results None ED Diagnoses Final diagnoses GI bleeding ESRD on dialysis DVT (deep venous thrombosis), on anticoagulation Supratherapeutic INR Anemia Disposition: Admit Additional Documentation Procedures Attending Note: Documentation assistance provided by Allison Rosenberg (Scribe). Information recorded by the scribe has been reviewed and validated by me. Ana post with its contents. DO Huan Hankins DO 05/01/12 0015 onversion Transac tion, Provider Unknown - 04/30/2012 4:32 AM PSTFormatting of this note might be different f rom the original. ED Notes by Salima Rodriguez RN at 04/30/12431 Author: Salima Rodriguez RN Service: (none) Author Type: Registered Nurse Filed: 04/30/12432 Date of Service: 04/30/12431 Status: Signed Trade Mark Attorney: Salima Rodriguez RN (Registered Nurse) Lab called for blood draw Salima Rodriguez RN 04/30/12432 onver quique Transaction, Provider Unknown - 04/30/2012 4:30 AM PST ED Notes by Salima Rodriguez RN at 04/30/12429 Author: Salima Rodriguez RN Service: (none) Author Type: Registered Nurse Filed: 04/30/12453 Date of Service: 04/30/12429 Status: Signed Trade Mark Attorney: Salima Rodriguez RN (Registered Nurse) Second IV attempted X2, unsuccessful at this time, one attempt in left upper arm and one at tempt in right upper arm. Salima Rodriguez RN 04/30/12453 onver quique Transaction, Provider Unknown - 04/30/2012 4:09 AM PST ED Notes by Tucker Garcia RN at 04/30/12408 Author: Tucker Garcia RN Service: (none) Author Type: Registered Nurse Filed: 04/30/12408 Date of Service: 04/30/12408 Status: Signed Trade Mark Attorney: Tucker Garcia RN (Registered Nurse) Bed:03
Expected date:
Expected time:
Means of arrival:
Comments:
Dee RIVERA onver quique Transaction, Provider Unknown - 04/30/2012 3:26 AM PST ED Notes by Tucker Garcia RN at 04/30/12325 Author: Tucker Garcia RN Service: (none) Author Type: Registered Nurse Filed: 04/30/12328 Date of Service: 04/30/12325 Status: Signed Trade Mark Attorney: Tucker Garcia RN (Registered Nurse) Transfer from [facility] for LGIB. Recent dx ESRD with dialysis. Also started cou madin recently for DVTs in his arm. Hx IVDA. Onset tonight at about 2300 of blood in his s tool. H/H 8/24.9, BUN 36, creatinine 5.7, INR 3.9, PT 40.7. LSC/RA, reports blood in stool . Pt has rash and blisters on his body. Orthostatics: Supine BP 116/83, P82, Sitting BP 81/47, P86. A/o x3. Tucker Garcia RN 04/30/12328 docume nted in this encounter Miscellaneous Notes Op Note - John Yeung - 05/01/2012 5:47 PM PST Op Note by John Yeung MD at 05/01/121746 Author: John Yeung MD Service: Gastroenterology Author Type: Physician Filed: 05/01/121748 Date of Service: 05/01/121746 Status: Signed Trade Mark Attorney: John Yeung MD (Physician) [facility] Service: Gastroenterology ENDOSCOPY SUITE PROCEDURE NOTE Colonoscopy Indications: GI bleeding Consent: The benefits, risks (bleeding, perforation, infection and reaction to medication) , and alternatives to the procedure were discussed and informed consent was obtained from th e patient. Preparation: EKG, pulse, pulse oximetry, and blood pressure were monitored throughout the procedure. Medications: MAC Digital Rectal Exam: Normal rectal exam. Procedure: The Olympus colonoscope was passed through the anus under direct visualization and was advanced with ease to the cecum, confirmed by appendiceal orifice and ileocecal valv e. The scope was withdrawn and the mucosa was carefully examined. The quality of the prepara tion was good. The views were good. The patient's toleration of the procedure was good. Ther e were no apparent complications. Findings: -normal colonic mucosa throughout -diverticulosis, mild in degree, involving the sigmoid -hemorrhoids (internal), Large in size Specimens: none Complications: None; patient tolerated the procedure well. Impression: -normal colonic mucosa throughout -diverticulosis, mild in degree, involving the sigmoid -hemorrhoids (internal), Large in size EBL: Minimal Recommendations: Return to floor for continuous care. JOHN YEUNG MD 05/01/2012 p Note - John Yeung - 05/01/2012 5:44 PM PST Op Note by Jonh Yeung MD at 05/01/121743 Author: John Yeung MD Service: Gastroenterology Author Type: Physician Filed: 05/01/121746 Date of Service: 05/01/121743 Status: Signed Trade Mark Attorney: John Yeung MD (Physician) [facility] Service: Gastroenterology ENDOSCOPY SUITE PROCEDURE NOTE Esophagogastroduodenoscopy Indications: GI bleeding Consent: The benefits, risks (bleeding, perforation, infection and reaction to medication) , and alternatives to the procedure were discussed and informed consent was obtained from th e patient. Preparation: EKG, pulse, pulse oximetry, and blood pressure were monitored throughout the procedure. Medications: MAC Procedure: The gastroscope was passed through the mouth under direct visualization and was advanced with ease to the 2nd portion of the duodenum. The scope was withdrawn and the muco sa was carefully examined. The views were good. There were no apparent complications. Findings: 4 clean base ulcers at antrum, 3 to 7mm in size with no active bleeding signs. Hiatal hernia. Normal esophagus and duodenum. Specimens: Gastric for Tisha test Complications: None; patient tolerated the procedure well. Impression: Gastric ulcer and hiatal hernia EBL: Minimal Recommendations: F/U on biopsy results. Continue PPi and avoid NSAIDs JOHN YEUNG MD 05/01/2012 documented in this encount er Plan of Treatment Not on filedocumented as of this encounter Visit Diagnoses + + | Diagnosis | + + | GI bleeding Hemorrhage of gastrointestinal tract, unspecified | + + | 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) Type II or unspecified | | type diabetes mellitus with renal manifestations, not stated as uncontrolled | + + | GI bleed Hemorrhage of gastrointestinal tract, unspecified | + + | Hypoalbuminemia Other disorders of plasma protein metabolism | + + | Hypokalemia Hypopotassemia | + + | Hyponatremia Hyposmolality and/or hyponatremia | + + | Hypothyroidism Unspecified hypothyroidism | + + | MSSA (methicillin susceptible Staphylococcus aureus) infection Methicillin | | susceptible Staphylococcus aureus in conditions classified elsewhere and of unspecified | | site | + + | Obesity (BMI 30-39.9) Obesity, unspecified | + + | Rash and nonspecific skin eruption Rash and other nonspecific skin eruption | + + | Type II or unspecified type diabetes mellitus without mention of complication, not | | stated as uncontrolled | + + | ESRD on dialysis (HCC) End stage renal disease | + + | Unspecified asthma(493.90) Unspecified asthma | + + | Vitamin D deficiency Unspecified vitamin D deficiency | + + | HTN (hypertension) Unspecified essential hypertension | + + | ESRD (end stage renal disease) on dialysis (HCC) End stage renal disease | + + | Acute posthemorrhagic anemia | + + | DVT (deep venous thrombosis) (HCC) Acute venous embolism and thrombosis of | | unspecified deep vessels of lower extremity | + + | 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HCC) Type II or unspecified type diabetes | | mellitus with renal manifestations, not stated as uncontrolled | + + | Supratherapeutic INR Abnormal coagulation profile | + + | Anemia Anemia, unspecified | + + | Essential hypertension, benign | + + | Secondary hyperparathyroidism (of renal origin) | + + | Amphetamine and other psychostimulant dependence, continuous | + + | 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
--- OUTSIDE RECORDS SUMMARY | ~2020-03-11 | XMS | Encounter Summary ---
Demographics + + + | Address | [address] | | | [place] [address] | + + + | Home Phone [...] Author + + + | Author | [facility] | | | and [place] | + + + | Organization | [facility] | [...] Team Providers + +------+ + | Care Ditch Rider Name | Role | Phone | + +------+ + PCP | Unavailable | + +------+ + Encounter Details +--------+ + + + + | Date | Type | Department | Care Team | Description | +--------+ + + + + | 05/14/ | Hospital | [facility] | Sowmya Shaikh MD | Fever; Diabetes | | 2011 - | Encounter | [facility] | [address] [facility] | mellitus (HCC); | | | | CARE FLOOR [address] | [place] [address] | Febrile illness, | | 05/17/ | | [address] | [phone] | acute; ESRD (end | | 2011 | | [place], [place] | | stage renal disease) | | | | [phone] | | on dialysis (HCC); | | | | [phone] | | Diabetes mellitus | | | | | | with ESRD (end-stage | | | | | | renal disease) | | | | | | ([facility]); | | | | | | Hypoalbuminemia; [...] | | | | | | uncontrolled ([facility]); | | | | | | HTN (hypertension); | | | | | | 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, | | | | | | continuous ([facility]); | | | | | | DVT (deep venous | | | | | | thrombosis) ([facility]); | | | | | | Bacteremia; | | | | | | Hyperphosphatemia; | | | | | | Anemia of chronic | | | | | | kidney failure; ESRD | | | | | | (end stage renal | | | | | | disease) ([facility]); | | | | | | Essential | | | | | | hypertension, | | | | | | benign; Secondary | | | | | | hyperparathyroidism | | | | | | (of renal origin) | | | | | | (HCC); Bacteremia | | | | | | [...] Discharge Summaries by Carlee Bejarano MD at 05/17/12 0956 Author: Carlee Bejarano MD Service: (none) Author Type: Physician Filed: 05/17/12 1010 Date of Service: 05/17/12955 Status: Addendum Lifter/Driver: Carlee Bejarano MD (Physician) Related Notes: Original Note by Carlee Bejarano MD (Physician) filed at 05/17/12 1008 [facility] Service: Hospitalist Discharge Summary Date of Admission: [...] According to Dr. Escobar blood cultures from [facility] outpatient dialysis unit where he had fever [...] W/ EGD; Surgeon: John Singleton MD; Location: [facility]; Se rvice: Gastroenterology; Laterality: N/A; Av fistula placement 05/06/2012 Procedure: AV FISTULA; Surgeon: Oskar Meyer MD; Location: [facility] OR; Service: Vascul ar; Laterality: Left; [...] 20 mg by mouth daily. ergocalciferol (DRISDOL) 54361 UNITS capsule Take 1 capsule by mouth once a week. 3 ca psule 0 folic acid-vitamin b complex-vitamin g-nxdnehao-onbl (DIALYVITE) 3 MG TABS Take 1 table [...] C) Oral 77 18 99 % - 05/16/120 - 98.8 F (37.1 C) Oral - [...] C) Oral 82 18 99 % - 05/16/12 194 151/72 mmHg - - - - - - 05/16/12 1930 149/70 mmHg - - - - - - 05/16/12 1915 143/71 mmHg - - - - - - 05/16/12 1845 129/67 mmHg - - - - - - 05/16/12 1833 130/65 mmHg - - - - - [...] Procedure Component Value Units Date/Time POCT glucose [[id number]] Collected:05/17/12 0537 GLUCOSE,POC SCREEN 88 mg/dL Updated:05/17/12 0735 POCT glucose [[id number]] (Abnormal) Collected:05/16/12 2106 GLUCOSE,POC SCREEN 123 (H) mg/dL Updated:05/16/12 2304 POCT glucose [[id number]] (Abnormal) Collected:05/16/12 1708 GLUCOSE,POC SCREEN 132 (H) mg/dL Updated:05/16/12 1749 POCT glucose [[id number]] (Abnormal) Collected:05/16/12 1125 GLUCOSE,POC SCREEN 208 (H) mg/dL Updated:05/16/12 1657 CBC w/auto diff (reflex to manual) [[id number]] (Abnormal) Collected:05/16/12 0445 WBC 10.3 K/uL Updated:05/16/12 [...] BASOPHILS ABS 0.0 K/uL Renal function panel [[id number]] (Abnormal) Collected:05/16/12 0445 Specimen Information:Blood Updated:05/16/12 0551 SODIUM 135 mmol/L POTASSIUM 3.7 mmol/L CHLORIDE 95 (L) mmol/L CO2 25 mmol/L ANION GAP AGAP 18 mmol/L GLUCOSE 106 (H) mg/dL BUN 37 (H) mg/dL CREATININE 6.86 (H) mg/dL CALCIUM 7.5 (L) mg/dL Albumin 2.5 (L) g/dL PHOSPHORUS 3.3 mg/dL EGFR 9 (L) mL/min/1.73m2 POCT glucose [[id number]] (Abnormal) Collected:05/15/12 1140 GLUCOSE,POC SCREEN 173 (H) mg/dL Updated:05/15/12 1340 Urine microscopic only [[id number]] Collected:05/15/12599 WBC 0-2 /hpf Updated:05/15/12630 RBC 1-5 /hpf EPITHELIAL 1-5 /lpf BACTERIA NONE SEEN Urinalysis [] (Abnormal) Collected:05/15/12599 Specimen Information:Urine / Urine, Clean Catch Updated:05/15/12630 COLOR YELLOW CLARITY CLEAR SPECIFIC GRAVITY,URINE 1.020 LEUKOCYTE ESTERASE NEGATIVE NITRITE NEGATIVE UROBILINOGEN 0.2 mg/dL PROTEIN >300 (A) mg/dL PH,URINE 7.5 BLOOD TRACE (A) KETONES NEGATIVE mg/dL BILIRUBIN NEGATIVE GLUCOSE 100 (A) mg/dL Blood culture, 2 of 2 [[id number]] Collected:05/14/122141 Specimen Information:Blood Updated:05/15/12630 Specimen Description BLOOD CULTURE NO GROWTH AT THIS TIME CULTURE Result: Testing performed at [facility];[address] [place] [address] REPORT STATUS PENDING Blood culture, 1 of 2 [[id number]] Collected:05/14/121999 Specimen Information:Blood Updated:05/15/12629 Specimen Description BLOOD CULTURE NO GROWTH AT THIS TIME CULTURE Result: Testing performed at [facility];[address] [place] [address] REPORT STATUS PENDING Basic metabolic panel [[id number]] (Abnormal) Collected:05/14/122243 Specimen Information:Blood Updated:05/14/122320 SODIUM 137 mmol/L POTASSIUM 3.3 (L) mmol/L CHLORIDE 95 (L) mmol/L CO2 31 mmol/L ANION GAP AGAP 15 mmol/L GLUCOSE 150 (H) mg/dL BUN 20 mg/dL CREATININE 4.42 (H) mg/dL BUN/CREAT 5 CALCIUM 7.4 (L) mg/dL EGFR 15 (L) mL/min/1.73m2 Glycohemoglobin A1c [[id number]] (Abnormal) Collected:05/14/122243 Specimen Information:Blood Updated:05/14/122313 HEMOGLOBIN A1C 6.0 % ESTIMATED AVG GLUCOSE 126 (H) mg/dL CBC w/auto diff (reflex to manual) [[id number]] (Abnormal) Collected:05/14/122243 Specimen Information:Blood Updated:05/14/122255 WBC 7.5 [...] BASOPHILS ABS 0.0 K/uL Sedimentation Rate (ESR) [[id number]] (Abnormal) Collected:05/14/121999 Specimen Information:Blood Updated:05/14/122055 ESR 61 (H) mm/Hr CBC with differential [[id number]] (Abnormal) Collected:05/14/121999 Specimen Information:Blood Updated:05/14/122037 WBC 8.5 [...] (H) K/uL MORPHOLOGY 2+ Comprehensive metabolic panel [[id number]] (Abnormal) Collected:05/14/121999 Specimen Information:Blood Updated:05/14/122030 SODIUM 139 [...] U/L EGFR 16 (L) mL/min/1.73m2 C-Reactive Protein [[id number]] (Abnormal) Collected:05/14/121999 Specimen Information:Blood Updated:05/14/122030 CRP 10.0 (H) mg/dL X-ray chest 1 view [[id number]] Collected:05/14/122245 Order Status:Completed Updated:05/14/122252 Narrative: ENRIQUE NOLASCO [...] to have HD every MWF. Follow up: [facility] [address] [facility] [address] Make an appointment in 1 week Sarita Escobar DO [address] [facility] [address] [facility] [address] Make an appointment on 05/26/2012 Current Discharge [...] 20 mg by mouth daily. ergocalciferol (DRISDOL) 66944 UNITS capsule Take 1 capsule by mouth once a week. Qty: 3 capsule, Refills: 0 folic acid-vitamin b complex-vitamin x-gennqdvy-zacz (DIALYVITE) 3 MG TABS Take 1 tablet [...] follow-up and documentation of disc harge summary. CARLEE BEJARANO MD 05/17/2012 10:08 AM docubia stratton in this encounter Medications at Time [...] mouth | | 0 | 03/07/20 | 08/28/202 | | (MICARDIS) 40 mg | Daily. | | | 12 | 0 | | tablet | | | | | | + + + +---------+ + + documented as of this encounter Progress Notes Sean Solorzano T - 05/17/2012 10:53 AM PSTFormatting of this note might be different from th e original. Progress Notes by Sean Solorzano MD at 05/17/12 7640 Author: Sean Solorzano MD Service: Nephrology Author Type: Physician Filed: 05/17/12 1104 Date of Service: 05/17/12 1058 Status: Signed Lifter/Driver: Sean Solorzano MD (Physician) [facility] Service: NEPHROLOGY Progress Note Enrique Potter 47 y.o. [id number] male [facility] Hospital Day: LOS: 3 days SUBJECTIVE [...] hospital. DENIES ANY FEVER TODAY I called [place] [facility] hemod[facility] unit and the blood culture on [...] W/ EGD; Surgeon: John Singleton MD; Location: [facility]; Se rvice: Gastroenterology; Laterality: N/A; Av fistula placement 05/06/2012 Procedure: AV FISTULA; Surgeon: Oskar Meyer MD; Location: [facility] MA[facility] OR; Service: Vascul ar; Laterality: Left; [...] WITH [employer]; KIDSUNEMPLOYED BEFORE WORKED AT [employer] IN [place]/ [employer] COURSESMOKE NONE ETOH QUIT 15 YEARS AGODRUGS: [...] chloride 10 mL Intravenous Q8H vitamin B depjswo-J-sxmbn acid 1 tablet Oral Daily DISCONTD: linezolid [...] of the chest was obtained. COMPARISON: 04/10/2012 TAMARA ARSHAD: Right-sided dialysis catheter tip located region superior [...] TO DIABETES AND HYPERTENSIVE NEPHROSCLEROSIS ON HD -- AT [facility] HD UNIT UNDER DR COOK ALL WORK UP FOR VASCULITIS NEGATIVE LAST ADM C3, C4 levels wnl, hep b/c NR, RF NEG, KAPPA/LAMBDA RATIO WNL, HIV NR RASHID/LAMBDA RATIO 1.89 ANCA, ANTI GBM neg RENAL BX : renal bx 04/10/2012 SHOWED ESRD WITH LOTS OF SCARRING ,He is s/p diagnostic [facility] biopsy which shows advanced fibrotic changes with [...] DR BEJARANO PT TO CONT HD AT [facility] HD UNDER DR COOK upon [...] 05/17/12911 Date of Service: 05/17/12903 Status: Signed Lifter/Driver: Sarita Escobar DO (Physician) [facility] Service: Infectious Disease Progress Note Hospital Day: [...] chloride 10 mL Intravenous Q8H vitamin B earwydo-W-jjnqa acid 1 tablet Oral Daily DISCONTD: linezolid [...] Status: Full Code SARITA ESCOBAR DO 05/17/2012 onversion Transaction, Dorinda ovider Unknown - 05/17/2012 5:13 AM PST Progress Notes by Carola Albrecht RN at 05/17/12512 Author: Carola Albrecht RN Service: (none) Author Type: Registered Nurse Filed: 05/17/12513 Date of Service: 05/17/12512 Status: Signed Lifter/Driver: Carola Albrecht RN (Registered Nurse) No acute [...] 1800 Date of Service: 05/16/121750 Status: Signed Lifter/Driver: Sean Solorzano MD (Physician) [facility] Service: NEPHROLOGY Progress Note Enrique Potter 47 y.o. [phone] [id number] male [facility] Hospital Day: LOS: 2 days SUBJECTIVE [...] hospital. DENIES ANY FEVER TODAY I called [place] [facility] unit and the blood culture on [...] W/ EGD; Surgeon: John Singleton MD; Location: [facility]; Se rvice: Gastroenterology; Laterality: N/A; Av fistula placement 05/06/2012 Procedure: AV FISTULA; Surgeon: Oskar Meyer MD; Location: [facility]; Service: Vascul ar; Laterality: Left; [...] WITH [employer]; KIDSUNEMPLOYED BEFORE WORKED AT [employer] IN [place]/ [employer] COURSESMOKE NONE ETOH QUIT 15 YEARS AGODRUGS: [...] chloride 10 mL Intravenous Q8H vitamin B gffecqu-P-kxbpq acid 1 tablet Oral Daily Continuous Infusions [...] of the chest was obtained. COMPARISON: 04/10/2012 TAMARA MOLINAS: Right-sided dialysis catheter tip located region superior [...] TO DIABETES AND HYPERTENSIVE NEPHROSCLEROSIS ON HD -- AT [facility] HD UNIT UNDER DR COOK ALL WORK UP FOR VASCULITIS NEGATIVE LAST ADM C3, C4 levels wnl, hep b/c NR, RF NEG, KAPPA/LAMBDA RATIO WNL, HIV NR RASHID/LAMBDA RATIO 1.89 ANCA, ANTI GBM neg RENAL BX : renal bx 04/10/2012 SHOWED ESRD WITH LOTS OF SCARRING ,He is s/p diagnostic [facility] biopsy which shows advanced fibrotic changes with [...] DR BEJARANO PT TO CONT HD AT [facility] HD UNDER DR COOK upon [...] Date of Service: 05/16/12 1012 Status: Signed Lifter/Driver: Carlee Bejarano MD (Physician) [facility] Service: Hospitalist Progress Note Hospital Day: LOS: [...] chloride 10 mL Intravenous Q8H vitamin B hpkxjlk-R-pcgbc acid 1 tablet Oral Daily Continuous Infusions [...] Date/Time CBC w/auto diff (reflex to manual) [[id number]] (Abnormal) Collected:05/16/12 0445 WBC 10.3 K/uL Updated:05/16/12 [...] BASOPHILS ABS 0.0 K/uL Renal function panel [[id number]] (Abnormal) Collected:05/16/12 0445 Specimen Information:Blood Updated:05/16/1251 SODIUM 135 mmol/L POTASSIUM 3.7 mmol/L CHLORIDE 95 (L) mmol/L CO2 25 mmol/L ANION GAP AGAP 18 mmol/L GLUCOSE 106 (H) mg/dL BUN 37 (H) mg/dL CREATININE 6.86 (H) mg/dL CALCIUM 7.5 (L) mg/dL Albumin 2.5 (L) g/dL PHOSPHORUS 3.3 mg/dL EGFR 9 (L) mL/min/1.73m2 POCT glucose [[id number]] (Abnormal) Collected:05/15/12 1140 GLUCOSE,POC SCREEN 173 (H) mg/dL Updated:05/15/12 1340 Urine microscopic only [[id number]] Collected:05/15/12599 WBC 0-2 /hpf Updated:05/15/12630 RBC 1-5 /hpf EPITHELIAL 1-5 /lpf BACTERIA NONE SEEN Urinalysis [[id number]] (Abnormal) Collected:05/15/12 06 Specimen Information:Urine / Urine, Clean Catch Updated:05/15/12630 COLOR YELLOW CLARITY CLEAR SPECIFIC GRAVITY,URINE 1.020 LEUKOCYTE ESTERASE NEGATIVE NITRITE NEGATIVE UROBILINOGEN 0.2 mg/dL PROTEIN >300 (A) mg/dL PH,URINE 7.5 BLOOD TRACE (A) KETONES NEGATIVE mg/dL BILIRUBIN NEGATIVE GLUCOSE 100 (A) mg/dL Blood culture, 2 of 2 [[id number]] Collected:05/14/122141 Specimen Information:Blood Updated:05/15/12630 Specimen Description BLOOD CULTURE NO GROWTH AT THIS TIME CULTURE Result: Testing performed at [facility];[address] [place] [address];[place] [address] REPORT STATUS PENDING Blood culture, 1 of 2 [[id number]] Collected:05/14/121999 Specimen Information:Blood Updated:05/15/12629 Specimen Description BLOOD CULTURE NO GROWTH AT THIS TIME CULTURE Result: Testing performed at [facility];[address] [place] [address];[place] [address] REPORT STATUS PENDING Basic metabolic panel [[id number]] (Abnormal) Collected:05/14/122243 Specimen Information:Blood Updated:05/14/122320 SODIUM 137 mmol/L POTASSIUM 3.3 (L) mmol/L CHLORIDE 95 (L) mmol/L CO2 31 mmol/L ANION GAP AGAP 15 mmol/L GLUCOSE 150 (H) mg/dL BUN 20 mg/dL CREATININE 4.42 (H) mg/dL BUN/CREAT 5 CALCIUM 7.4 (L) mg/dL EGFR 15 (L) mL/min/1.73m2 Glycohemoglobin A1c [[id number]] (Abnormal) Collected:05/14/122243 Specimen Information:Blood Updated:05/14/122313 HEMOGLOBIN A1C 6.0 % ESTIMATED AVG GLUCOSE 126 (H) mg/dL CBC w/auto diff (reflex to manual) [[id number]] (Abnormal) Collected:05/14/122243 Specimen Information:Blood Updated:05/14/122255 WBC 7.5 [...] BASOPHILS ABS 0.0 K/uL Sedimentation Rate (ESR) [[id number]] (Abnormal) Collected:05/14/121999 Specimen Information:Blood Updated:05/14/122055 ESR 61 (H) mm/Hr CBC with differential [] (Abnormal) Collected:05/14/121999 Specimen Information:Blood Updated:05/14/122037 WBC 8.5 [...] (H) K/uL MORPHOLOGY 2+ Comprehensive metabolic panel [[id number]] (Abnormal) Collected:05/14/121999 Specimen Information:Blood Updated:05/14/122030 SODIUM 139 [...] U/L EGFR 16 (L) mL/min/1.73m2 C-Reactive Protein [[id number]] (Abnormal) Collected:05/14/121999 Specimen Information:Blood Updated:05/14/122030 CRP 10.0 (H) mg/dL X-ray chest 1 view [[id number]] Collected:05/14/122245 Order Status:Completed Updated:05/14/122252 Narrative: ENRIQUE NOLASCO [...] Physician Filed: 05/16/12 0915 Date of Service: 05/16/12 0856 Status: Addendum Lifter/Driver: Sarita Escobar DO (Physician) Related Notes: Original Note by Sarita Escobar DO (Physician) filed at 05/16/12 0907 [facility] Service: Infectious Disease Progress Note Hospital Day: [...] chloride 10 mL Intravenous Q8H vitamin B yqhsyan-Z-azigg acid 1 tablet Oral Daily Continuous Infusions [...] Status: Full Code SARITA ESCOBAR DO 05/16/2012 oneric Transaction, Dorinda ovider Unknown - 05/16/2012 5:15 AM PST Progress Notes by Carola Albrecht RN at 05/16/12514 Author: Carola Albrecht RN Service: (none) Author Type: Registered Nurse Filed: 05/16/12514 Date of Service: 05/16/12514 Status: Signed Lifter/Driver: Carola Albrecht RN (Registered Nurse) No changes from assessment. Pt. Slept through out the night. Pt. Denies pain and vital si gns were stable. Zoltan Gray ARNP - 05/15/2012 3:35 PM PSTFormatting of this note might be different from t barbie original. Progress Notes by Zoltan Garcia RN at 05/15/121534 Author: Zoltan Garcia RN Service: (none) Author Type: Registered Nurse Filed: 05/15/121534 Date of Service: 05/15/121534 Status: Signed Lifter/Driver: Zoltan Garcia RN (Registered Nurse) VSS. Pt. Resting quietly in bed. No acute observations. Will continue monitoring. Pt. Watching football most of the day and resting. owmya Shaikh MD - 05/15/2012 3:23 PM PST Progress Notes by Sowmya Shaikh MD at 05/15/12 1523 Author: Sowmya Shaikh MD Service: Hospitalist Author Type: Physician Filed: 05/15/12 1718 Date of Service: 05/15/12 1523 Status: Addendum Lifter/Driver: Sowmya Shaikh MD (Physician) Related Notes: Original Note by Sowmya Shaikh MD (Physician) filed at 05/15/12 1530 [facility] Service: Hospitalist Progress Note Enrique Potter 47 y.o. [id number] male [facility] Patient Summary: The patient is a [...] chloride 10 mL Intravenous Q8H vitamin B oytgwkq-G-vcvma acid 1 tablet Oral Daily DISCONTD: ergocalciferol [...] Procedure Component Value Units Date/Time POCT glucose [[id number]] (Abnormal) Collected:05/15/12 1140 GLUCOSE,POC SCREEN 173 (H) mg/dL Updated:05/15/12 1340 Urine microscopic only [[id number]] Collected:05/15/12 0600 WBC 0-2 /hpf Updated:05/15/12 0631 RBC 1-5 /hpf EPITHELIAL 1-5 /lpf BACTERIA NONE SEEN Urinalysis [[id number]] (Abnormal) Collected:05/15/12 0600 Specimen Information:Urine / Urine, Clean Catch Updated:05/15/12630 COLOR YELLOW CLARITY CLEAR SPECIFIC GRAVITY,URINE 1.020 LEUKOCYTE ESTERASE NEGATIVE NITRITE NEGATIVE UROBILINOGEN 0.2 mg/dL PROTEIN >300 (A) mg/dL PH,URINE 7.5 BLOOD TRACE (A) KETONES NEGATIVE mg/dL BILIRUBIN NEGATIVE GLUCOSE 100 (A) mg/dL Blood culture, 2 of 2 [[id number]] Collected:05/14/122141 Specimen Information:Blood Updated:05/15/12630 Specimen Description BLOOD CULTURE NO GROWTH AT THIS TIME CULTURE Result: Testing performed at [facility];[address] [place] [address] REPORT STATUS PENDING Blood culture, 1 of 2 [[id number]] Collected:05/14/121999 Specimen Information:Blood Updated:05/15/12629 Specimen Description BLOOD CULTURE NO GROWTH AT THIS TIME CULTURE Result: Testing performed at [facility];[address] [place] [address] REPORT STATUS PENDING Basic metabolic panel [[id number]] (Abnormal) Collected:05/14/122243 Specimen Information:Blood Updated:05/14/122320 SODIUM 137 mmol/L POTASSIUM 3.3 (L) mmol/L CHLORIDE 95 (L) mmol/L CO2 31 mmol/L ANION GAP AGAP 15 mmol/L GLUCOSE 150 (H) mg/dL BUN 20 mg/dL CREATININE 4.42 (H) mg/dL BUN/CREAT 5 CALCIUM 7.4 (L) mg/dL EGFR 15 (L) mL/min/1.73m2 Glycohemoglobin A1c [[id number]] (Abnormal) Collected:05/14/122243 Specimen Information:Blood Updated:05/14/122313 HEMOGLOBIN A1C 6.0 % ESTIMATED AVG GLUCOSE 126 (H) mg/dL CBC w/auto diff (reflex to manual) [[id number]] (Abnormal) Collected:05/14/122243 Specimen Information:Blood Updated:05/14/122255 WBC 7.5 [...] BASOPHILS ABS 0.0 K/uL Sedimentation Rate (ESR) [[id number]] (Abnormal) Collected:05/14/121999 Specimen Information:Blood Updated:05/14/122055 ESR 61 (H) mm/Hr CBC with differential [[id number]] (Abnormal) Collected:05/14/121999 Specimen Information:Blood Updated:05/14/122037 WBC 8.5 [...] (H) K/uL MORPHOLOGY 2+ Comprehensive metabolic panel [[id number]] (Abnormal) Collected:05/14/121999 Specimen Information:Blood Updated:05/14/122030 SODIUM 139 [...] U/L EGFR 16 (L) mL/min/1.73m2 C-Reactive Protein [[id number]] (Abnormal) Collected:05/14/121999 Specimen Information:Blood Updated:05/14/122030 CRP 10.0 [...] Service: Nephrology Author Type: Physician Filed: 05/24/12 3585 Date of Service: 05/15/12 1304 Status: Signed Lifter/Driver: Juan Cook MD (Physician) [facility] Service: NEPHROLOGY Progress Note Enrique Potter 47 y.o. [phone] [id number] male [facility] Hospital Day: LOS: 1 day Patient [...] W/ EGD; Surgeon: John Singleton MD; Location: [facility]; Se rvice: Gastroenterology; Laterality: N/A; Av fistula placement 05/06/2012 Procedure: AV FISTULA; Surgeon: Oskar Meyer MD; Location: [facility]; Service: Vascul ar; Laterality: Left; [...] WITH [employer]; KIDSUNEMPLOYED BEFORE WORKED AT [employer] IN [place]/ [employer] NONE ETOH QUIT 15 YEARS AGODRUGS: USES [...] chloride 10 mL Intravenous Q8H vitamin B fivkswq-Z-pukdn acid 1 tablet Oral Daily DISCONTD: ergocalciferol [...] THIS TIME CULTURE Value: Testing performed at [facility];[address] [place] [address];[place] [address] REPORT STATUS PENDING C-REACTIVE PROTEIN Collection Time 05/14/12 8:00 PM Component Value Range CRP 10.0 (*) <0.5 mg/dL SEDIMENTATION RATE, AUTOMATED Collection Time 05/14/12 8:00 PM Component Value Range ESR 61 (*) 0 - 15 mm/Hr BLOOD CULTURE, SET 2 Collection Time 05/14/12 9:42 PM Component Value Range Specimen Description BLOOD CULTURE NO GROWTH AT THIS TIME CULTURE Value: Testing performed at [facility];[address] [place] [address];[place] [address] REPORT STATUS PENDING BASIC METABOLIC PANEL Collection [...] Imaging X-ray Chest 1 View 05/14/2012 ENRIQUE POTTER [...] 05/15/12652 Date of Service: 05/15/12652 Status: Signed Lifter/Driver: Carola Albrecht RN (Registered Nurse) No acute changes during the night. Pt slept well and denied any pain. onver quique Transaction, Provider Unknown - 05/15/2012 2:05 AM PST Progress Notes by Carola Albrecht RN at 05/15/12204 Author: Carola Albrecht RN Service: (none) Author Type: Registered Nurse Filed: 05/15/12205 Date of Service: 05/15/12204 Status: Signed Lifter/Driver: Carola Albrecht RN (Registered Nurse) Notified Dr. Colbert about pt.s K+ level. onver quique Transaction, Provider Unknown - 05/14/2012 10:44 PM PST Progress Notes by Xavier Toro RPH at 05/14/12 0367 Author: Xavier Toro RPH Service: (none) Author Type: Pharmacist Filed: 05/14/122243 Date of Service: 05/14/122243 Status: Signed Lifter/Driver: Xavier Toro RPH (Pharmacist) Note ccl 21.2ml/min meds reviewed Pharmacy will follow [facility] 2244 docume nted in this encounter H&P Notes Sowmya Shaikh MD - 05/14/2012 9:46 PM PST H&P by Sowmya Shaikh MD at 05/14/122145 Author: Sowmya Shaikh MD Service: Hospitalist Author Type: Physician Filed: 05/28/12 1313 Date of Service: 05/14/122145 Status: Signed Lifter/Driver: Sowmya Shaikh MD (Physician) Related Notes: Original Note by Sowmya Shaikh MD (Physician) filed at 05/14/122212 Admission History & Physical Date of Admission: 05/14/2012 CHIEF COMPLAINT: Fever HISTORY OF PRESENT ILLNESS The patient is a 47 y.o. male with significant past medical history of end-stage renal dis ease, on hemodialysis Saturday, Saturday, and Saturday, being followed by Dr. Cook; history of hypertension; hyperlipidemia; diabetes type 2; asthma; anemia of chronic disease secondary to end-stage renal disease; and a history of GI bleed who came to the emergency department after the patient started to have a fever of 101 degrees while he on hemodialysis on Saturday when he was given vancomycin, and he went back again for his hemodialysis session and was found to have a fever of 101 again. Hence the patient was sent to [facility] as blood cultures are growing gram-positive cocci despite being on vancomycin. Otherwise the patient denied any chest pain, no shortness of breath, no abdominal pain, no nausea, no vomiting, no dysuria, or any other complaints. Dr. Tello from ID service has been consulted who recommends to start the patient on Zyvox 600 mg IV b.i.d., and Dr. Escobar will follow the patient from morning. The patient has been on vancomycin since April 10, 2012, when he was found to have MSSA bacteremia and was discharged home on 6 weeks of vancomycin. At that time he underwent RONY to rule out endocarditis which was negative. The patient is admitted to the hospitalist service for further workup and treatment. Past Medical History Diagnosis Date Hyperlipidemia Hypertension Diabetes mellitus type II Asthma Thyroid disease Anemia Abdominal pain, right upper quadrant 04/13/2012 DVT (deep venous thrombosis) Chronic kidney disease Dialysis patient GI bleed 04/30/2012 Prior to Admission medications Medication Sig Start Date End Date Taking? Authorizing Provider albuterol (PROVENTIL) (2.5 MG/3ML) 0.083% nebulizer solution Take 2.5 mg by nebulization ev keira 6 (six) hours as needed. Yes Historical Provider ALBUTEROL IN Inhale 2 puffs into the lungs daily. Yes Historical Provider amlodipine (NORVASC) 10 MG tablet Take 1 tablet by mouth daily. 04/15/12 04/15/13 Yes Vikram Colbert MD citalopram (CELEXA) 20 MG tablet Take 20 mg by mouth daily. Yes Historical Provider ergocalciferol (DRISDOL) 39655 UNITS capsule Take 1 capsule by mouth once a week. 04/15/12 04/15/13 Yes Vikram Colbert MD folic acid-vitamin b complex-vitamin y-izulbwuw-bfxa (DIALYVITE) 3 MG TABS Take 1 tablet by mouth daily. Yes Historical Provider levothyroxine (SYNTHROID, LEVOTHROID) 25 MCG tablet Take 1 tablet by mouth every morning be fore breakfast. 04/15/12 04/15/13 Yes Vikram Colbert MD omeprazole (PRILOSEC) 40 MG capsule Take 1 capsule by mouth 2 (two) times daily. 05/02/12 Yes Vikram Colbert MD vancomycin (VANCOCIN) IVPB Administer 750 mg IV with hemodialysis on dialysis days 04/15/12 05/25/12 Yes Elsie Lerner MD calcitRIOL (ROCALTROL) 0.25 MCG capsule Take 1 capsule by mouth daily. 04/15/12 04/15/13 A christen Colbert MD hydrocodone-acetaminophen (VICODIN) 5-500 MG per tablet Take 1-2 tablets by mouth every 6 ( six) hours as needed for Pain. 05/06/12 05/16/12 Oskar Meyer MD Past Surgical History Procedure Date Unlisted procedure arthroscopy Colonoscopy with egd 05/01/2012 Procedure: COLONOSCOPY W/ EGD; Surgeon: John Singleton MD; Location: [facility]; Se rvice: Gastroenterology; Laterality: N/A; Av fistula placement 05/06/2012 Procedure: AV FISTULA; Surgeon: Oskar Meyer MD; Location: [facility] OR; Service: Vascul ar; Laterality: Left; Left arm possible right (Not in a hospital admission) Allergies Allergen Reactions Lisinopril Other (See Comments) "makes me sweat and knocked me out" Penicillins Other (See Comments) unknown Family history: Father:living at age 70 years and has DM2 Mother: with MD at age 52 years 2 sisters are healthy at age 4 years and 37 years. History Social History Marital Status: Spouse Name: [...] WITH [employer]; KIDSUNEMPLOYED BEFORE WORKED AT [employer] [place] NONE ETOH QUIT 15 YEARS AGODRUGS: USES METHAMPHETAMINES PER PATIENTF ATHER HAS COLON CANCER, HEART DISEASEMOTHER 15 YEARS AGONO FH KIDNEY PROBLEMS. Review of Systems:-ve except as above Physical Exam: BP 161/72 | Pulse 81 | Temp(Src) 100.2 F (37.9 C) (Oral) | Resp 16 | Ht 1.702 m (5' 7") | Wt 83.462 kg (184 lb) | BMI 28.82 kg/m2 | SpO2 99% General Appearance: No apparent distress. HEENT: Normocephalic, atraumatic, o/p clear HD catheter at place with slight erythema w/o any tenderness or discharge NECK: is supple with no carotid bruit CHEST:Lungs clear to auscultation with no wheezing, No rales or rhonchi HEART:Regular rate and rhythm without murmur, No gallop or rubs ABDOMEN:Bowel sound is normoactive, abdomen is soft, non-tender non-distended ,no mass and no CVA tenderness EXTREMITIES:No lower extermity edema, No clubbing or cyanosis bilaterally NEURO: Mental status intact, Cranial Nerves 2-12 intact, Gait normal, Reflexes normal and s ymmetric, Muscle strength good bilaterally, Sensation grossly intact. and Alert and Oriented , nurse anesthesia program director are grossly intact. Psychiatric: Has a normal mood and affect. Behavior is normal. Judgment normal. DATA CBC: Lab Results Component Value Date WBC 8.5 05/14/2012 RBC 3.04* 05/14/2012 HGB 9.1* 05/14/2012 HCT 27.2* 05/14/2012 MCV 89.3 05/14/2012 MCH 29.9 05/14/2012 MCHC 33.5 05/14/2012 RDW 46.8 05/14/2012 PLT 200 05/14/2012 MPV 7.0 05/14/2012 DIFFTYPE MANUAL 05/14/2012 CMP: Lab Results Component Value Date NA 139 05/14/2012 K 3.2* 05/14/2012 CL 95* 05/14/2012 CO2 31 05/14/2012 ANIONGAP 16 05/14/2012 GLUF 138* 05/14/2012 BUN 19 05/14/2012 CREATININE 4.31* 05/14/2012 BCR 5 05/14/2012 CA 7.6* 05/14/2012 CA 6.1* 04/02/2012 PROT 7.0 05/14/2012 ALB 2.6* 05/14/2012 GLOB 4.4 05/14/2012 BILITOT 0.4 05/14/2012 ALP 136* 05/14/2012 AST 31 05/14/2012 ALT 25 05/14/2012 EGFR 16* 05/14/2012 Albumin: Lab Results Component Value Date ALB 2.6* 05/14/2012 Magnesium: Lab Results Component Value Date MG 2.0 05/01/2012 Phosphorus: Lab Results Component Value Date PHOS 5.4* 05/01/2012 PT/INR: Lab Results Component Value Date INR 1.1 05/06/2012 Troponin: Lab Results Component Value Date TROPONINI 0.06 04/05/2012 Last 3 Troponin: Lab Results Component Value Date TROPONINI 0.06 04/05/2012 TROPONINI 0.06 04/05/2012 TROPONINI 0.05 04/05/2012 TSH: Lab Results Component Value Date TSH 16.60* 04/03/2012 PROBLEM LIST Active Problems: ESRD (end stage renal disease) on dialysis Febrile illness, acute Diabetes mellitus Asthma ASSESSMENT & PLAN 1. Acute febrile illness likely secondary to gram-positive bacteremia and likely the source of infection hemodialysis catheter. 2. End-stage renal disease on hemodialysis. 3. Diabetes type 2, diet controlled. 4. Asthma, well controlled. 5. Hypertension. PLAN 1. Send 2 blood cultures again and the patient is being started on Zyvox 600 mg IV b.i.d. per Dr. Tello's recommendation. Dr. Escobar will follow the patient in the morning and further management per him. 2. Dr. Cook has been consulted. The patient is due for next dialysis on Saturday. 3. Check HbA1c. 4. No wheezing on exam. Will continue on albuterol nebulizer as needed. 5. Blood pressure mildly elevated. Will continue the patient on amlodipine 10 mg p.o. daily and will add Coreg if blood pressure continues to be high in the next 24 hours. Disposition: floor Code Status: full Primary Care Physician: [facility] SOWMYA SHAIKH MD 05/14/2012 documented in this en counter Consult Notes Sarita Escobar - 05/15/2012 9:07 AM PST Consult* by Sarita Escobar DO at 05/15/12906 Author: Sarita Escobar DO Service: (none) Author Type: Physician Filed: 05/15/12925 Date of Service: 05/15/12906 Status: Signed Lifter/Driver: Sarita Escobar DO (Physician) [facility] Service: Infectious Disease Initial Consult Note Date of Admission: 05/14/2012 Reason for Consultation: Recurrent bacteremia despite vancomycin Requesting Physician: Gifty Shaikh History Obtained From: patient, chart review CHIEF COMPLAINT: Fevers HISTORY OF PRESENT ILLNESS The patient is a 47 y.o. male with significant past medical history of end-stage renal dise ase, chronic skin rash, recent staph aureus and Streptococcus aeruginosa bacteremia, recent GI bleed who presents with recurrent Gram-positive bacteremia despite vancomycin. The patien t has been receiving vancomycin after each hemodialysis [...] he was nervous coming to the hospital. REVIEW OF SYSTEMS Review of Systems Complete [...] W/ EGD; Surgeon: John Singleton MD; Location: [facility]; Se rvice: Gastroenterology; Laterality: N/A; Av fistula placement 05/06/2012 Procedure: AV FISTULA; Surgeon: Oskar Meyer MD; Location: [facility] OR; Service: Vascul ar; Laterality: Left; [...] 20 mg by mouth daily. ergocalciferol (DRISDOL) 40410 UNITS capsule Take 1 capsule by mouth once a week. 3 ca psule 0 folic acid-vitamin b complex-vitamin v-lmxotquk-omcl (DIALYVITE) 3 MG TABS Take 1 table t by mouth daily. levothyroxine (SYNTHROID, LEVOTHROID) 25 MCG tablet Take 1 tablet by mouth every mornin g before breakfast. 30 tablet 0 omeprazole (PRILOSEC) 40 MG capsule Take 1 capsule by mouth 2 (two) times daily. 60 ca psule 1 vancomycin (VANCOCIN) IVPB Administer 750 mg IV with hemodialysis on dialysis days 17 Doses 0 calcitRIOL (ROCALTROL) 0.25 MCG capsule Take 1 capsule by mouth daily. 30 capsule 1 hydrocodone-acetaminophen (VICODIN) 5-500 MG per tablet Take 1-2 tablets by mouth every 6 (six) hours as needed for Pain. 30 tablet 0 Scheduled Medications acetaminophen 1,000 mg Oral Once amLODIPine 10 mg Oral Daily calcitRIOL 0.25 mcg Oral Daily citalopram 20 mg Oral Daily ergocalciferol 50,000 Units Oral Weekly heparin (porcine) 2,000 Units Intravenous Once heparin (porcine) 5,000 Units Subcutaneous Q8H levothyroxine 25 mcg Oral QAM AC linezolid 600 mg Intravenous Q12H omeprazole 40 mg Oral BID sodium chloride 10 mL Intravenous Q8H vitamin B rxwhmuw-Q-kccyg acid 1 tablet Oral Daily DISCONTD: ergocalciferol 50,000 Units Oral Weekly DISCONTD: ergocalciferol 50,000 Units Oral Weekly DISCONTD: non fomulary Intravenous Once Continuous Infusions PRN Medications acetaminophen, acetaminophen, albuterol, albuterol, hydrocodone-acetaminophen, hydrocodone- acetaminophen, ondansetron, ondansetron, polyethylene glycol, zolpidem, DISCONTD: hydrocodon e-acetaminophen No family history on file. History Social [...] WITH [employer]; KIDSUNEMPLOYED BEFORE WORKED AT [employer] IN [place] NONE ETOH QUIT 15 YEARS AGODRUGS: USES METHAMPHETAMINES PER PATIENTF ATHER HAS COLON CANCER, HEART DISEASEMOTHER 15 YEARS [facility] FH KIDNEY PROBLEMS. PHYSICAL EXAM Vital Signs: BP 153/71 | Pulse 86 | Temp(Src) 98.7 F (37.1 C) (Oral) | Resp 20 | Ht 1.702 m (5' 7") | Wt 81.8 kg (180 lb 5.4 oz) | BMI 28.24 kg/m2 | SpO2 99% Temp (24hrs), Av.2 F (37.3 C), Min:98.2 F (36.8 C), Max:101 F (38.3 C) Physical Exam Constitutional: The patient is in no acute distress and appears stated age. Vital signs wer e reviewed as above Head: Normocephalic and atraumatic ENT: Mucous membranes are moist. There is no evidence of thrush. No pharyngeal exudates. Neck: Supple without thyromegaly or meningismus. Right IJ hemodialysis catheter site unrema rkable, no erythema, induration or tenderness. Heart: Regular rate and rhythm without murmurs gallops or rubs Lungs: Clear to auscultation bilaterally without wheezes rales or rhonchi. Abdomen: Soft and nontender, bowel sounds are present, there is no organomegaly or mass Musculoskeletal: There is no gross deformity or active arthritis. Neuro: There are no gross deficits of motor or sensory function Skin: Diffuse firm flesh colored nodular skin rash noted on face, trunk and upper extremiti es, unchanged overall. No associated erythema or ulceration. Extremities: There is no clubbing, cyanosis, or peripheral edema. Left upper extremity AV f istula wound healing well. Psychiatric: The patient attends the examiner without [...] 05/14/2012 ALT 25 05/14/2012 EGFR 15* 05/14/2012 Medical imaging: Chest x-ray from last evening was reviewed in PACS. This does not show any areas of focal consolidation or cavitary lesions. Mild interstitial prominence is noted, mo st suggestive of pulmonary edema. Official report agrees with this assessment. The patient a lso had an ultrasound venous mapping performed earlier this month which showed the following : IMPRESSION: 1. Upper extremity vein mapping as described above. 2. Occluding thrombus within the right internal jugular vein and in the right cephalic vein down to the level of the elbow. 3. Occluding thrombus in the midportion of the left cephalic vein. Microbiology: Blood cultures collected during outpatient dialysis last week and reportedly positive for gram-positive cocci, identification and susceptibility pending. Blood cultures x2 collected on admission last evening are negative so far. Medical record review: I. Have reviewed the admission history and physical and discharge deal omero from his hospitalization of April 30 and May 06. Operative reports have also be en reviewed. Much of this information is summarized above in history of the present illness. PROBLEM LIST Active Problems: Rash and nonspecific skin eruption ESRD (end stage renal disease) on dialysis Febrile illness, acute Diabetes mellitus Asthma Bacteremia due to Gram-positive bacteria ASSESSMENT & PLAN Patient Active Hospital Problem List: Rash and nonspecific skin eruption (04/03/2012) This does not show any signs of ulceration or secondary infection. It has been improving overall. The patient was advised to avoid scratching as much as possible. ESRD (end stage renal disease) on dialysis (05/14/2012) Linezolid does not require any dose adjustment. Bacteremia due to Gram-positive bacteria (05/15/2012) The patient has been well covered for his previous MSSA and Streptococcus sanguis bactere titi, and has continued to receive vancomycin. His recurrent positive blood cultures despite vancomycin therapy raises concern for VRE versus untreated focus of infection such as right upper extremity DVT or hematogenous seeding of a distant site. Chest x-ray does not show any evidence of septic emboli, and he does not have any respiratory symptoms to suggest such. H e also denies any symptoms of musculoskeletal illness to suggest secondary septic joint, dis citis, or abscess. Continue Zyvox for now and await identification and susceptibility of the positive blood cultures from the outpatient setting. Fevers are improved. Code Status: Full Code Primary Care Physician: [facility] Thank you for allowing me to participate in the care of this patient. I will continue to follow with you. SARITA ESCOBAR, 05/15/2012 Juan Rucker - 05/14 7:22 PM PST Consult* by Juan Cook MD at 05/14/121921 Author: Juan Cook MD Service: Nephrology Author Type: Physician Filed: 05/24/12 8813 Date of Service: 05/14/121921 Status: Signed Lifter/Driver: Juan Cook MD (Physician) [facility] Service: NEPHROLOGY CONSULT Note Enrique Potter 47 y.o. [id number] [birth year] male [facility] Hospital Day: LOS: 0 days Date of Admission: 05/14/2012 Requesting Physician: ED provider/ Hospitalist Reason for CONSULTATION: ESRD History Obtained From: patient, RECORDS HISTORY OF PRESENT ILLNESS Patient with PMH End-stage renal disease, on hemodialysis Saturday, Saturday, and Saturday, history of hypertension; hyperlipidemia; diabetes type 2; asthma; anemia of chronic disease secondary to end-stage renal disease; and a history of GI bleed who came to the emergency department after the patient started to have a fever of 101 degrees while he was on hemodialysis on Saturday. He was given vancomycin, and he went back again for his hemodialysis session and was found to have a fever of 101 again. Hence the patient was sent to [facility]. Saturday's cultures are growing gram-positive cocci despite being on vancomycin. Otherwise the patient denied any chest pain, no shortness of breath, no abdominal pain, no nausea, no vomiting, no dysuria, or any other complaints. Dr. Tello from ID service has been consulted who recommends to start the patient on Zyvox 600 mg IV b.i.d., and Dr. Escobar will follow the patient in the morning. The patient has been on vancomycin since April 10, 2012, when he was found to have MSSA bacteremia and was discharged home on 6 weeks of vancomycin. At that time he underwent RONY to rule out endocarditis which was negative. The patient is admitted to the hospitalist service for further workup and treatment. Nephrology consulted for evaluation and management of ESRD ONSET CHRONIC severity SEVERE Associated with fluid electrolyte acid base imbalances REQUIRING HD RF: ESRD DUE TO DM-2 BIOPSY PROVEN ROS: General:+VE fever, chills, DENIES sweats, anorexia, fatigue, weakness. Cardiovascular: Denies leg swelling, SOB, chest pain. HEENT: Denies recent hearing or visual loss, sore throat or swallowing difficulties, Ear ac he/discharge, sinus problems and oral thrush. Respiratory: Denies chronic cough, hemoptysis, and wheezing. GI: Denies nausea, vomiting, melena. : +VE ESRD ON HD Denies burning with urination, blood in urine, foamy urine, urinary freq uency, urinary hesitancy. Musculoskeletal: Denies recent joint pain or swelling, muscle aches. Extremities: Denies swelling in legs or feet. +ve rash Derm: +ve rash, itching all over body. Neuro: Denies dizziness, lightheadedness, tremors, stroke or frequent headaches. Psych: +ve anxiety denies depression, hallucinations, delusions. ALLERGY: Denies hay fever. HEME: +ve profound anemia Denies any bleeding disorder or blood dyscrasias. ENDOCRINE: +ve DM, denies Thyroid problems, Hyperlipidemia. Rest of the ROS Unremarkable. Past Medical History Diagnosis Date Hyperlipidemia Hypertension Diabetes mellitus type II Asthma Thyroid disease Anemia Abdominal pain, right upper quadrant 04/13/2012 DVT (deep venous thrombosis) Chronic kidney disease Dialysis patient GI bleed 04/30/2012 Past Surgical History Procedure Date Unlisted procedure arthroscopy Colonoscopy with egd 05/01/2012 Procedure: COLONOSCOPY W/ EGD; Surgeon: John Singleton MD; Location: [facility]; Se rvice: Gastroenterology; Laterality: N/A; Av fistula placement 05/06/2012 Procedure: AV FISTULA; Surgeon: Oskar Meyer MD; Location: [facility]; Service: Vascul ar; Laterality: Left; Left arm possible right Prior to Admission medications Medication Sig Start Date End Date Taking? Authorizing Provider albuterol (PROVENTIL) (2.5 MG/3ML) 0.083% nebulizer solution Take 2.5 mg by nebulization every 6 (six) hours as needed. Yes Historical Provider ALBUTEROL IN Inhale 2 puffs into the lungs daily. Yes Historical Provider amlodipine (NORVASC) 10 MG tablet Take 1 tablet by mouth daily. 04/15/12 04/15/13 Yes Vikram Colbert MD citalopram (CELEXA) 20 MG tablet Take 20 mg by mouth daily. Yes Historical Provider ergocalciferol (DRISDOL) 23951 UNITS capsule Take 1 capsule by mouth once a week. 04/15/12 04/15/13 Yes Vikram Colbert MD folic acid-vitamin b complex-vitamin h-gkzvmvqt-dhoq (DIALYVITE) 3 MG TABS Take 1 tablet by mouth daily. Yes Historical Provider levothyroxine (SYNTHROID, LEVOTHROID) 25 MCG tablet Take 1 tablet by mouth every morning before breakfast. 04/15/12 04/15/13 Yes Vikram Colbert MD omeprazole (PRILOSEC) 40 MG capsule Take 1 capsule by mouth 2 (two) times daily. 05/02/12 05/02/13 Yes Vikram Colbert MD vancomycin (VANCOCIN) IVPB Administer 750 mg IV with hemodialysis on dialysis days 04/15/12 05/25/12 Yes Elsie Lerner MD calcitRIOL (ROCALTROL) 0.25 MCG capsule Take 1 capsule by mouth daily. 04/15/12 04/15/13 Vikram Colbert MD hydrocodone-acetaminophen (VICODIN) 5-500 MG per tablet Take 1-2 tablets by mouth every 6 (six) hours as needed for Pain. 05/06/12 05/16/12 Oskar Meyer MD Allergies Allergen Reactions Lisinopril Other (See [...] WITH [employer]; KIDSUNEMPLOYED BEFORE WORKED AT [employer] IN [place] NONE ETOH QUIT 15 YEARS AGODRUGS: USES [...] WITH [employer]; KIDSUNEMPLOYED BEFORE WORKED AT [employer] IN [place] NONE ETOH QUIT 15 YEARS AGODRUGS: USES METHAMPHETAMINES PER PATIENTF ATHER HAS COLON CANCER, HEART DISEASEMOTHER 15 YEARS [facility] FH KIDNEY PROBLEMS. Allergy: Allergies Allergen Reactions Lisinopril Other (See Comments) "makes me sweat and knocked me out" Penicillins Other (See Comments) unknown OBJECTIVE Vital Signs: BP 141/66 | Pulse 86 | Temp(Src) 99 F (37.2 C) (Oral) | Resp 18 | Ht 1.702 m (5' 7") | Wt 83.462 kg (184 lb) | BMI 28.82 kg/m2 | SpO2 99% I&O Detailed Table: Weight change: Examination: APPEARANCE: The patient is a pleasant lying in no apparent distress. VITALS: Reviewed as listed. HEAD: NC/AT. EYES: PERRLA. EOMI. Non-icteric sclera. +ve pale conjuctive ENT: No oropharyngeal erythema. Buccal mucosa is MOIST. No gross ear or nasal problems note d. NECK: Supple. No raised JVD or thyromegaly. LYMPHATIC: No palpable lymphadenopathy. LUNGS: Clear to auscultation bilaterally. HEART: S1, S2, no pericardial rub noted. ABDOMEN: Full, soft, no tenderness. Bowel sounds are present. No organomegaly or bruits not ed. EXTREMITIES: no pedal edema noted. No cyanosis or clubbing. Peripheral pulses palpable. SKIN: Warm to touch. +VE RASH NEUROLOGIC: No gross focal motor deficit noted. PSYCH: The patient is alert and oriented x 3, mood and affect looks ok, memory seems to be intact. BACK: no CVA tenderness noted LABS: CBC: Lab Results Component Value Date WBC 8.5 05/14/2012 RBC 3.04* 05/14/2012 HGB 9.1* 05/14/2012 HCT 27.2* 05/14/2012 MCV 89.3 05/14/2012 MCH 29.9 05/14/2012 MCHC 33.5 05/14/2012 RDW 46.8 05/14/2012 PLT 200 05/14/2012 MPV 7.0 05/14/2012 DIFFTYPE MANUAL 05/14/2012 CMP: Lab Results Component Value Date NA 139 05/14/2012 K 3.2* 05/14/2012 CL 95* 05/14/2012 CO2 31 05/14/2012 ANIONGAP 16 05/14/2012 GLUF 138* 05/14/2012 BUN 19 05/14/2012 CREATININE 4.31* 05/14/2012 BCR 5 05/14/2012 CA 7.6* 05/14/2012 CA 6.1* 04/02/2012 PROT 7.0 05/14/2012 ALB 2.6* 05/14/2012 GLOB 4.4 05/14/2012 BILITOT 0.4 05/14/2012 ALP 136* 05/14/2012 AST 31 05/14/2012 ALT 25 05/14/2012 EGFR 16* 05/14/2012 Albumin: Lab Results Component Value Date ALB 2.6* 05/14/2012 Magnesium: Lab Results Component Value Date MG 2.0 05/01/2012 Phosphorus: Lab Results Component Value Date PHOS 5.4* 05/01/2012 PT/INR: Lab Results Component Value Date INR 1.1 05/06/2012 Troponin: Lab Results Component Value Date TROPONINI 0.06 04/05/2012 Last 3 Troponin: Lab Results Component Value Date TROPONINI 0.06 04/05/2012 TROPONINI 0.06 04/05/2012 TROPONINI 0.05 04/05/2012 TSH: Lab Results Component Value Date TSH 16.60* 04/03/2012 IMAGING: Patient's old records and labs were reviewed in detail and summarized. PROBLEM LIST Active Problems: Rash and nonspecific skin eruption Hypokalemia ESRD (end stage renal disease) on dialysis Febrile illness, acute Diabetes mellitus Asthma Bacteremia due to Gram-positive bacteria Hyperphosphatemia Unspecified essential hypertension ASSESSMENT & PLAN ESRD ON HD No need for hd today Assess daily for need for hd Orders put in the chart Fluid restriction 1 litre/24 hours Strict I & O Daily RFP Renal diet Daily weights will help with subsequent hd with uf Dose all meds per protocol for ESRD on hd HTN STARTED ON AMLODIPINE WATCH BP CLOSELY HYPERPHOSPHATEMIA LOW P DIET HYPOKALEMIA REPLACE TO KEEP k GREATER THAN 3.8 ANEMIA OF CKD EPOGEN ON HD TO KEEP HGB 10- DM-2 STRICT GLYCEMIC CONTROL BACTEREMIA ON ABX PER ID CASE DISCUSSED IN DETAIL WITH PATIENT/ HOSPITALIST, ANSWERS ALL QUESTIONS IN DETAIL, VERBAL IZES UNDERSTANDING I thank Dr shaikh for giving me the opportunity to take part in the care of this karolina mahamed ent with multiple complex medical problems JUAN COOK MD 05/14/2012 [facility] documented in this en counter ED Notes Conversion Transaction, Provider Unknown - 05/14/2012 10:28 PM PSTFormatting of this note m ight be different from the original. ED Notes by Krista Amato RN at 05/14/122227 Author: Krista Amato RN Service: (none) Author Type: Registered Nurse Filed: 05/14/122227 Date of Service: 05/14/122227 Status: Signed Lifter/Driver: Krista Amato RN (Registered Nurse) Portable CXR at bedside Krista Amato RN 05/14/122227 onver quique Transaction, Provider Unknown - 05/14/2012 9:56 PM PST ED Notes by Krista Amato RN at 05/14/122155 Author: Krista Amato RN Service: (none) Author Type: Registered Nurse Filed: 05/14/122155 Date of Service: 05/14/122155 Status: Signed Lifter/Driver: Krista Amato RN (Registered Nurse) Dr Shaikh, hospitalist at bedside to examine pt Krista Amato RN 05/14/122155 onver quique Transaction, Provider Unknown - 05/14/2012 9:48 PM PST ED Notes by Krista Amato RN at 05/14/122147 Author: Krista Amato RN Service: (none) Author Type: Registered Nurse Filed: 05/14/122147 Date of Service: 05/14/122147 Status: Signed Lifter/Driver: Krista Amato RN (Registered Nurse) Pt resting quietly - pt aware that we still need a urine sample. Awaiting pending admissio n Krista mAato RN 05/14/122147 onver quique Transaction, Provider Unknown - 05/14/2012 8:46 PM PST ED Notes by Krista Amato RN at 05/14/122045 Author: Krista Amato RN Service: (none) Author Type: Registered Nurse Filed: 05/14/122046 Date of Service: 05/14/122045 Status: Signed Lifter/Driver: Krista Amato RN (Registered Nurse) Pt updated on plan of care and reason for delay in obtaining second set of blood cultures - Krista Amato RN 05/14/122046 onver quique Transaction, Provider Unknown - 05/14/2012 8:14 PM PST ED Notes by Krista Amato RN at 05/14/122013 Author: Krista Amato RN Service: (none) Author Type: Registered Nurse Filed: 05/14/122013 Date of Service: 05/14/122013 Status: Signed Lifter/Driver: Krista Amato RN (Registered Nurse) ICU dialysis nurse requested to come draw second set of blood cultures from dialysis port p er Dr Yamil Amato RN 05/14/122013 onver quique Transaction, Provider Unknown - 05/14/2012 7:00 PM PST ED Notes by Krista Amato RN at 05/14/121899 Author: Krista Amato RN Service: (none) Author Type: Registered Nurse Filed: 05/14/121899 Date of Service: 05/14/121899 Status: Signed Lifter/Driver: Krista Amato RN (Registered Nurse) Dr Lobo at bedside to examine pt Krista Amato RN 05/14/121899 Kenneth Diaz MD - 05/14/2012 6:58 PM PST ED Provider Notes by Kenneth Lobo MD at 05/14/121857 Author: Kenneth Lobo MD Service: (none) Author Type: Physician Filed: 05/14/12 8898 Date of Service: 05/14/121857 Status: Signed Lifter/Driver: Kenneth Lobo MD (Physician) [facility] Department of Emergency Medicine 6:58 PM 05/14/2012 History of Present Illness Patient Identification Enrique Potter is a 47 y.o. male. Patient information was obtained from patient and friend. History/Exam limitations: none. Patient presented to the Emergency Department by: Car (PCP: [facility]. Government Property Inspector: Iain.) Chief Complaint Chief Complaint Patient presents with Fever patient just completed dialysis, told to come here for fever 101.7 by dialysis nurse with concern of infected port. The patient presents with fever. Onset of symptoms was today, with a constant course since that time. Severity rated as moderate. Patient reports temperature at dialysis was 101.7 F. The patient reports nothing worsens symptoms, and nothing relieves symptoms. Patient also c omplains of chills (at dialysis). Patient denies cough, congestion, nausea, vomiting, abdom inal pain, trouble breathing, pain around port, and chest pain. Care prior to arrival consis gela of Vancomycin IVPB (at dialysis), with some change in temperature. Patient reports that dialysis port in R chest wall was placed in March and has new AV fis riki in L arm, placed on 06 May 2012. Past Medical History Diagnosis Date Hyperlipidemia Hypertension Diabetes mellitus type II Asthma Thyroid disease Anemia Abdominal pain, right upper quadrant 04/13/2012 DVT (deep venous thrombosis) Chronic kidney disease Dialysis patient GI bleed 04/30/2012 Past Surgical History Procedure Date Unlisted procedure arthroscopy Colonoscopy with egd 05/01/2012 Procedure: COLONOSCOPY W/ EGD; Surgeon: John Singleton MD; Location: [facility] ENDOSCOPY; Se rvice: Gastroenterology; Laterality: N/A; Av fistula placement 05/06/2012 Procedure: AV FISTULA; Surgeon: Oskar Meyer MD; Location: [facility] MAIN OR; Service: Vascul ar; Laterality: Left; Left arm possible right Prior to Admission medications Medication Sig Start Date End Date Taking? Authorizing Provider albuterol (PROVENTIL) (2.5 MG/3ML) 0.083% nebulizer solution Take 2.5 mg by nebulization ev keira 6 (six) hours as needed. Yes Historical Provider ALBUTEROL IN Inhale 2 puffs into the lungs daily. Yes Historical Provider amlodipine (NORVASC) 10 MG tablet Take 1 tablet by mouth daily. 04/15/12 04/15/13 Yes Vikram Colbert MD citalopram (CELEXA) 20 MG tablet Take 20 mg by mouth daily. Yes Historical Provider ergocalciferol (DRISDOL) 24713 UNITS capsule Take 1 capsule by mouth once a week. 04/15/12 04/15/13 Yes Vikram Colbert MD folic acid-vitamin b complex-vitamin l-ykentfup-yjuw (DIALYVITE) 3 MG TABS Take 1 tablet by mouth daily. Yes Historical Provider levothyroxine (SYNTHROID, LEVOTHROID) 25 MCG tablet Take 1 tablet by mouth every morning be fore breakfast. 04/15/12 04/15/13 Yes Vikram Colbert MD omeprazole (PRILOSEC) 40 MG capsule Take 1 capsule by mouth 2 (two) times daily. 05/02/12 Yes Vikram Colbert MD vancomycin (VANCOCIN) IVPB Administer 750 mg IV with hemodialysis on dialysis days 04/15/12 05/25/12 Yes Elsie Lerner MD calcitRIOL (ROCALTROL) 0.25 MCG capsule Take 1 capsule by mouth daily. 04/15/12 04/15/13 Vance Colbert MD hydrocodone-acetaminophen (VICODIN) 5-500 MG per tablet Take 1-2 tablets by mouth every 6 ( six) hours as needed for Pain. 05/06/12 05/16/12 Oskar Meyer MD Allergies Allergen Reactions Lisinopril Other (See [...] WITH [employer]; KIDSUNEMPLOYED BEFORE WORKED AT [employer] IN [place]/ [employer] COURSESMOKE NONE ETOH QUIT 15 YEARS AGODRUGS: USES METHAMPHETAMINES PER PATIENTF ATHER HAS COLON CANCER, HEART DISEASEMOTHER 15 YEARS AGONO FH KIDNEY PROBLEMS. No family history on file. Review of Systems Constitutional: Negative for fatigue, sweats, decreased appetite Positive for fever (101. 7 F at dialysis), chills (during dialysis, none before, none since) Eyes: Negative for vision changes Nose: Negative for congestion, nosebleeds Throat: Negative for sore throat CV/Resp: Negative for chest pain, cncdtoeij-ms-yzecix, cough GI: Negative for abdominal pain, nausea, vomiting, or diarrhea : Negative for urinary problems Musculoskeletal: Negative for back pain, joint pain Skin: Negative for rash Neuro/Psych: Negative for headache Endo/heme/Lymph: Negative for swollen lymph nodes, easy bruising All other systems reviewed and negative except as noted. Physical Exam BP 141/66 | Pulse 86 | Temp(Src) 99 F (37.2 C) (Oral) | Resp 18 | Ht 1.702 m (5' 7") | Wt 83.462 kg (184 lb) | BMI 28.82 kg/m2 | SpO2 99% Vitals: Normal. Pulse Oximetry interpretation: Normal General: Alert, NAD. Eyes: Normal inspection, EOMI, PERRL. ENT: Normal pharynx. Neck: Supple, no meningismus. CV: Regular rate, rhythm. Normal heart tones. Respiratory: No respiratory distress. Lungs clear to auscultation bilaterally. Dialysis port in R anterior chest wall. No surrounding erythema or tenderness to palpation. Abdomen: Soft, non-tender, non-distended. No guarding or rebound. Back: Normal inspection, normal ROM. Extremities: Atraumatic, normal ROM, no significant lower extremity edema Skin: Warm, dry. No rash. Neuro: No gross focal deficits. Motor and sensory grossly intact Psych: Normal affect. Medical Decision Making and Emergency Department Course ED Department Course 6:58 PM. Patient presents with fever. Occurred today at dialysis. Had some chills earlier, but improved, now. Feels fine, no other symptoms. Dialysis port appears good, with no obviou s external signs of infection. I believe that patient will need blood cultures and labs. Rajendra madrid states he sees Dr. Christianson. Will discuss case with Dr. Christianson or on-call as we will likel y need to call in a dialysis nurse to draw from that site. 7:11 PM. Discuss[address] case with Dr. Chavira, needleworker on-call, recommends that Dr. Christianson be consulted directly. 7:15 PM. Discuss[address] case with Dr. Christianson, needleworker, states this is a patient of Dr. Cook. Will consult Dr. Cook. 7:17 PM. Discussed case with Dr. Cook, needleworker, knows patient. States patient has been having fevers, has MSSA and is receiving Vancomycin at dialysis for this. Patient had cultu res drawn on Saturday that now show gram positive cocci despite receiving Vancomycin. Dr. Cook has consulted with both Dr. Tello and Dr. Lerner, infectious disease. Recommends with co nsult with Dr. Tello regarding further cultures, labs, and treatment. Dr. Cook agrees to co nsult and arrange for patient's dialysis while in the hospital. 7:24 PM. Discussed case with Dr. Tello, infectious disease on-call, knows about the patien t. Dr. Escobar knows about the patient and will see the patient tomorrow in the hospital. Reque sts blood cultures, including one from dialysis catheter. Requests that patient be started o n linezolid. 9:[address] Shaikh in the ED. Will see patient for admission. Patient has spik ed fever in ED. Tylenol ordered. Records Reviewed Old medical records. Nursing notes. Prior ED visit for an unrelated complaint. Laboratory Evaluation Results Procedure Component Value Ref Range Date/Time Sedimentation Rate (ESR) [[id number]] (Abnormal) Collected:05/14/121999 Order Status:Completed Updated:05/14/122055 Specimen Information:Blood ESR 61 (H) 0 - 15 mm/Hr CBC with differential [[id number]] (Abnormal) Collected:05/14/121999 Order Status:Completed Updated:05/14/122037 Specimen Information:Blood WBC 8.5 3.8 - 11.0 K/uL RBC 3.04 (L) 4.20 - 5.70 M/uL HGB 9.1 (L) 13.2 - 17.0 g/dL HCT 27.2 (L) 39.0 - 50.0 % MCV 89.3 80.0 - 100.0 fl MCH 29.9 27.0 - 34.0 pg MCHC 33.5 32.0 - 35.5 g/dL RDW SD 46.8 37 - 53 fl PLT 200 150 - 400 K/uL MPV 7.0 fl DIFF TYPE MANUAL Neutrophils Manual 73 40 - 75 % Bands 3 0 - 8 % Lymphocytes Manual 5 (L) 15 - 48 % Monocytes Manual 9 0 - 12 % Eosinophils Manual 10 (H) 0 - 7 % Neutrophils Absolute 6.1 1.9 - 7.4 K/uL Bands Manual 0.3 (H) 0 - 0.2 K/uL Lymphocytes Absolute 0.4 (L) 1.0 - 3.9 K/uL Monocytes Absolute 0.8 0 - 0.8 K/uL Eosinophils Absolute 0.9 (H) 0 - 0.5 K/uL MORPHOLOGY 2+ Comprehensive metabolic panel [[id number]] (Abnormal) Collected:05/14/121999 Order Status:Completed Updated:05/14/122030 Specimen Information:Blood SODIUM 139 135 - 143 mmol/L POTASSIUM 3.2 (L) 3.5 - 4.9 mmol/L CHLORIDE 95 (L) 99 - 109 mmol/L CO2 31 23 - 32 mmol/L ANION GAP AGAP 16 5 - 20 mmol/L GLUCOSE 138 (H) 65 - 99 mg/dL BUN 19 8 - 25 mg/dL CREATININE 4.31 (H) 0.70 - 1.30 mg/dL BUN/CREAT 5 CALCIUM 7.6 (L) 8.5 - 10.2 mg/dL TOTAL PROTEIN 7.0 6.3 - 8.2 g/dL Albumin 2.6 (L) 3.6 - 5.0 g/dL GLOBULIN 4.4 1.3 - 4.9 g/dL A/G 0.6 (L) 1.0 - 2.4 TBIL 0.4 0.1 - 1.5 mg/dL ALK PHOS 136 (H) 35 - 115 U/L AST 31 10 - 45 U/L ALT 25 10 - 65 U/L EGFR 16 (L) >60 mL/min/1.73m2 C-Reactive Protein [[id number]] (Abnormal) Collected:05/14/121999 Order Status:Completed Updated:05/14/122030 Specimen Information:Blood CRP 10.0 (H) <0.5 mg/dL I personally reviewed the lab results and they have been posted to the chart. Pertinent po sitive and negative findings have been addressed appropriately. ED Diagnoses Final diagnoses Fever Bacteremia ESRD (end stage renal disease) Disposition: ED Disposition Admit/Observation Bed request special needs: Dialysis Diagnosis?: fever, bacteremia, ESRD Additional Documentation Procedures Attending Note: Documentation assistance provided by LANE CALLAWAY (Scribe). Information recorded by the scribe has been reviewed and validated by me. I yojana post with its contents. MD Kenneth Kenny MD 05/14/12 1917 documented in this encounter Plan of Treatment [...] Conversion - 02/14/2019 4:18 AM PDT ENRIQUE GARZA CHEST 1 VIEW HISTORY:47 | | years. [...] | Testing performed at | | | [facility];[address] [facility];[place] [address] CULTURE | | | NO GROWTH IN 5 DAYS. | | | Testing performed at [facility];[address] | | | [facility];[place] [address] REPORT STATUS | | | 05/20/2012 FINAL [...] DAYS. | | | Testing performed at [facility];[address] | | | [address];[place] [address] REPORT STATUS | | | 05/20/2012 FINAL [...] + + | DVT (deep venous thrombosis) ([facility]) Acute venous embolism and thrombosis of | | unspecified deep vessels of lower extremity | + + | Bacteremia | + + | Hyperphosphatemia Disorders of phosphorus metabolism | + + | Anemia of chronic kidney failure Anemia in chronic kidney disease | + + | ESRD (end stage renal disease) ([facility]) End stage renal disease | + + [...]
--- OUTSIDE RECORDS SUMMARY | ~2020-03-11 | XMS | Encounter Summary ---
Demographics + + + | Address | [address] | | | [place] [address] | + + + | Home Phone [...] Author + + + | Author | [facility] | | | and [place] | + + + | Organization | [facility] [...] Team Providers + +------+ + | Care Light Armored Reconnaissance Officer Name | Role | Phone | + +------+ + PCP | Unavailable | + +------+ + Encounter Details +--------+ + + + + | Date | Type | Department | Care Team | Description | +--------+ + + + + | 04/30/ | Hospital | [facility] | Conversion | ESRD (end stage | | 2014 | Encounter | [facility] | Transaction, | renal disease) (HCC) | | | | [address] | Provider Unknown | | | | | [place], [place] | [phone] | | | | | [address] | | | | | | [phone] | Juan Timmons MD | | | | | | [address] | | | | | | [address] [place], [place] | | | | | | [address] | | | | | | | [...] Progress Notes Conversion Transaction, Provider Unknown - 04/30/2014 5:10 PM PSTFormatting of this note m ight be different from the original. Nurse Progress Note by Vickie Hernandez RN at 04/30/141709 Author: Vickie Hernandez RN Service: (none) Author Type: Registered Nurse Filed: 04/30/141711 Date of Service: 04/30/141709 Status: Signed Shoe Cleaner: Vickie Hernandez RN (Registered Nurse) DC inst. D/w patient and spouse, copies given. Pt to f/u with Dr. Timmons (pt to call on [facility] for appt). VSS. DC to home. JAMAR 04/29/14 @ 1712 docume nted in this encounter Procedure Notes Matteo Pruitt NP - 05/05/2014 9:16 AM PST Procedures by DARRELL Lopez at 05/05/14915 Author: DARRELL Lopez Service: Radiology Author Type: Advanced Registered Nurse Practitioner Filed: 05/05/14918 Date of Service: 05/05/14915 Status: Signed Shoe Cleaner: DARRELL Lopez ([place] Registered Nurse Practitioner) Pre-procedure Diagnoses: 1. ESRD (end stage renal disease) ([facility]) [585.6] 2. Bacteremia [790.7] Post-procedure Diagnoses: 1. ESRD (end stage renal disease) ([facility]) [585.6] 2. Bacteremia [790.7] Procedures: 1. IR REMOVAL TUNNELED CATHETER [QCS3227 (Custom)] Late entry: Procedure note from 04/30/14 [facility] Service: Interventional Radiology Tunneled Dialysis Catheter Removal Pre-procedure Diagnosis: ESRD requiring dialysis, bacteremia Post-procedure Diagnosis: Same Procedure(s): Removal of left upper chest dual lumen tunneled dialysis catheter under loca l anesthesia Provider: DARRELL LOPEZ Anesthesia: Local anesthesia Estimated Blood Loss: Minimal Other: Not applicable Indications: Patient with history of end-stage renal disease requiring dialysis. Patient w ith functioning right upper arm AV fistula. No longer utilizing tunneled dialysis catheter a s a functioning access. History of bacteremia, positive blood cultures. Tunneled dialysis ca theter potential source of infection, needs removal. Complications: None Condition: Stable Dialysis catheter tip removed and sent to lab for C&S See dictated procedural report for full details. DARRELL LOPEZ 05/05/2014 9:17 AM documented in th is encounter Plan of Treatment Not on filedocumented as of this encounter Procedures + +--------+ + + + | Procedure Name | Priori | Date/Time | Associated Diagnosis | Comments | | | ty | | | | + +--------+ + + + | IR REMOVAL TUNNELED | Routin | 04/30/2014 | | Results for this | | CV CATH WO PORT | e | 4:50 PM | | procedure are in the | | | | PST | | results section. | + +--------+ + + + | HISTORICAL | Routin | 04/30/2014 | | Results for this | | MICROBIOLOGY RESULT | e | 3:56 PM | | procedure are in the | | | | PST | | results section. | + +--------+ + + + documented in this encounter Results IR Removal Tunneled CV Cath wo Port (04/30/2014 4:50 PM PST) + + | Specimen | + + | | + + + + + | Impressions | Performed At | + + + | Successful removal of left upper chest tunneled dialysis catheter | | | under local anesthesia without incident. | | + + + + + + | Narrative | Performed At | + + + | PROCEDURE Removal of dual-lumen tunneled dialysis catheter in left | | | upper chest under local anesthesia. INDICATIONS Patient with | | | history of end-stage renal disease requiring dialysis. Patient with | | | functioning right upper arm AV fistula. No longer utilizing tunneled | | | dialysis catheter as a functioning access. History of bacteremia, | | | positive blood cultures. Tunneled dialysis catheter potential source | | | of infection, needs removal. REQUESTING PROVIDER Juan Timmons MD | | | MEDICATIONS Lidocaine 1% for local anesthesia. DESCRIPTION | | | OF PROCEDURE I met this patient in the [facility] holding area. I had | | | a discussion with the patient regarding the procedure, the risks | | | involved, and the alternatives. The patient verbalized understanding | | | of this and their desire was to proceed with the procedure. | | | Therefore, written informed consent was obtained. The patient was | | | lying supine in the bed. The left upper chest and external portion of | | | the catheter were prepped utilizing chlorahexadine scrubs. The skin | | | and subcutaneous tissues were infiltrated with lidocaine 1%. Sterile | | | drapes were laurent and sterile technique was maintained throughout | | | the procedure. Heparin lock was removed from the dialysis catheter. | | | Subsequently, using blunt dissection, the subcutaneous cuff was | | | from the adjacent soft tissues and the catheter was removed. | | | Hemostasis was obtained with manual pressure. Xeroform and gauze | | | dressing applied. The patient tolerated the procedure well and no | | | procedural complications were encountered. The dialysis catheter | | | tip was removed and sent to the laboratory for culture and | | | sensitivity. | | + + + + + | Procedure Note | + + | Néstor, Rad Conversion - 02/06/2019 10:59 AM PDT PROCEDURERemoval of dual-lumen tunneled | | dialysis catheter in left upper chest under local anesthesia. INDICATIONSPatient with | | history of end-stage renal disease requiring dialysis. Patient with functioning right | | upper arm AV fistula. No longer utilizing tunneled dialysis catheter as a functioning | | access. History of bacteremia, positive blood cultures. Tunneled dialysis catheter | | potential source of infection, needs removal. REQUESTING PROVIDERJuan Timmons MD | | MEDICATIONSLidocaine 1% for local anesthesia. DESCRIPTION OF PROCEDUREI met this patient | | in the [facility] [employer] holding area. I had a discussion with the patient [...] | lock was removed from the dialysis catheter. Subsequently, using blunt dissection, the | | subcutaneous cuff was from the adjacent soft tissues and the catheter was | | removed. Hemostasis was obtained with manual pressure. Xeroform and gauze dressing | | applied. The patient tolerated the procedure well and no procedural complications were | | encountered. The dialysis catheter tip was removed and sent to the laboratory for | | culture and sensitivity. IMPRESSION: Successful removal of left upper chest tunneled | | dialysis catheter under local anesthesia without incident. | | | |The patient tolerated the procedure well and no procedural complications were encountered. | | | |The dialysis catheter tip was removed and sent to the laboratory for culture and sensitivit y. | | | |IMPRESSION: | | | |Successful removal of left upper chest tunneled dialysis catheter under local anesthesia wi thout incident. | | | | | | | + + HISTORICAL MICROBIOLOGY RESULT (04/30/2014 3:56 PM PST) + + | Specimen | + + | | + + + + + | Narrative | Performed At | + + + | Specimen Description CATHETER TIP CULTURE | EXTERNAL LAB | | LESS THAN 15 CFU | | | STAPHYLOCOCCUS AUREUSAbnormal | | | METHICILLIN | | | SUSCEPTIBLE STAPHYLOCOCCUS AUREUSAbnormal | | | Testing performed at [facility], [facility] | | | [place] [address] | | + + + + +---------+ [...]
--- OUTSIDE RECORDS SUMMARY | ~2020-03-11 | XMS | Encounter Summary ---
Demographics + + + | Address | [address] | | | [place] [address] | + + + | Home Phone | | + + + | Preferred Language | Unknown | + + + | Marital Status | Single | + + + | Caodaism Affiliation | Unknown | + + + [...] Team Providers + +------+ + | Care Polisher And Sander Name | Role | Phone | + [...] [address] | | | | | | [place], [place] | | | | | | [address] | | | | | | [phone] | | | | | | | [...] [address] | | | | | | [facility], [place] | | | | | | [address] | | | | | | [phone] | | | | | | | | +--------+ + + + + | 03/23/ | Appointment | Radiology | Taiwo Marin | | | 2019 | | | MD [facility] [address] | | | | | | [address] | | | | | | [place], [place] | | | | | | [address] | | | | | | [phone] | | | | | | | | +--------+ + + + + | 03/23/ | Office | Social Work | Lina Rodriguez, | | | 2019 | Visit | | [facility] [address] | | | | | | [address] | | | | | | [place], [place] | | | | | | [address] | | | | | | [phone] | | +--------+ + + + + | 03/24/ | Telephone-S | Nutrition | Debby Salvador, | | | 2020 | [address] | | [address] [facility] | | | | | | [address] | | | | | | [place] | | | | | | [address] | | | | | | [phone] | | | | | | | | +--------+ + + + + documented as of this encounter Visit Diagnoses Not on filedocumented in this encounter"
--- OUTSIDE RECORDS SUMMARY | ~2020-03-11 | XMS | Encounter Summary ---
Demographics + + + | Address | [address] | | | [place] [address] | + + + | Home Phone | | + + + | Preferred Language | Unknown | + + + | Marital Status | Single | + + + | Episcopalian Affiliation | Unknown | + + + | Race | or | + + + | Ethnic Group | Not or | + + + Author + + + | Author | [facility] | + + + | Organization | [facility] [employer] [facility] | + + + [...] Providers + +------+ + | Care Police Chief Name | Role | Phone | + +------+ + | Berenice Hicks | PCP | | + +------+ + Reason for Visit + + + | Reason | Comments | + + + | kidney transplant | | | evaluation | | + + + Consultation (Routine) + +--------+ + + + + | Status | Reason | Specialty | Diagnoses / | Referred By | Referred To | | | | | Procedures | Contact | Contact | + +--------+ + + + + | Authorized | | Kidney | Diagnoses | [place], | Nht Trans | | | | Transplant | End stage | Jayy Fischer MD | [facility] [address] | | | | | renal | [address] | [address] | | | | | disease | Dr Marcela | [address] | | | | | | [address] | Physician's | | | | | | [place], [place] | [place], | | | | | | [address] | [facility] floor | | | | | | Phone: | [place], [place] | | | | | | [phone] | [address] | | | | | | Fax: | Phone: | | | | | | [phone] | [phone] | | | | | | | Fax: | | | | | | | [phone] | + +--------+ + + + + Encounter Details +--------+---------+ + + + | Date | Type | Department | Care Team | Description | +--------+---------+ + + + | 12/15/ | Office | Kidney Transplant | Taiwo Marin | Encounter for | | 2019 | Visit | at [facility] [address] | [address] | pre-transplant | | | | [address] | [address] | evaluation for | | | | Physician's | [facility], [place] | chronic kidney | | | | [address], 3rd floor | [address] | disease (Primary | | | | [place], [place] | [phone] | Dx); CKD (chronic | | | | [address] | | kidney disease) | | | | [phone] | | requiring chronic | | | | | | dialysis ([facility]); 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 | | | | | | (end-stage renal | | | | | | disease) ([facility]); | | | | | | Secondary | | | | | | 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; | | | | | | Chronic obstructive | | | | | | asthma ([facility]); SVC | | | | | | syndrome; Chronic | | | | | | anticoagulation; | | | | | | Gout, unspecified | | | | | | cause, unspecified | | | | | | chronicity, | | | | | | unspecified site; | | | | | | Polysubstance abuse | | | | | | (HCC) | +--------+---------+ + + + Social History + + [...] + + + documented in this encounter Progress Notes Taiwo Marin MD - 12/16/2019 1:00 PM PDTFormatting of this note might be diffe rent from the original. TRANSPLANT RECIPIENT EVALUATION Today I am seeing Enrique Potter who is a 54 y[address] Dr. Jayy Christianson has asked us t o evaluate as a potential kidney transplant recipient. Patient is in clinic today with a eknneth hopper. 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 HISTORY OF PRESENT ILLNESS: He has chronic kidney disease, stage V, due to Diabetes and Hypertensive Nephrosclerosis wh ich was diagnosed in 2011 by biopsy. He is currently on hemodialysis. Dialysis was started on 04/10/2012 and is currently perfor med on for 3.75 h through an AV fistula placed in the [facility]. His dry weight is 85 kg. He makes 1 - 2 of urine daily. Potential living donor: none. He has not had a previous transplant. PAST MEDICAL HISTORY: Diabetes mellitus. Diagnosed in 1982. He has used Insulin before ("many years ago"). Currently on no medicatio ns for diabetes. Patient does not check glucose levels. 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 Denied foot ulcers. No gastroparesis. Hypertension. First diagnosed "many years ago". No hypertensive emergencies. History of superior vena cava syndrome. S/p dilation and stent placement in 02/2017. On warfarin chronically. History on MRSA bacteremia, in 01/2018. History of asthma. On a combination of inhalers. Denied previous mechanical ventilation. Hypothyroidism. On replacement for the past 7 years. History of substance abuse. Used to smoke Methamphetamine and cannabis. Quit in 2012. History of GI bleeding from peptic ulcer disease, in 2011. He required blood transfusions then. History of gouty arthritis. Last flare up "four years ago". Obesity. Maximum reported lifetime weight: 235 lb. Interventions: dietary modifications. History of TIA. He reported "going totally blind" seven years ago. Recovered vision the day after (?). No r ecurrence since. History of MRSA bacteremia in January 2018. Unclear source. Treated with Vancomycin for 6 weeks. Coronary artery disease or peripheral vascular disease. Denied. Malignancies. Denied. SURGICAL HISTORY Past Surgical History Procedure Laterality Date Av fistula placement Cataract extraction, left eye Orif fracture of right clavicle Right High school Tonsillectomy SOCIAL HISTORY: Social History Socioeconomic History Marital status: Single Spouse name: Not on file Number of children: Not on file Years of education: Not on file Highest education level: Not on file Occupational History Not on file Social Needs Financial resource strain: Not on file Food insecurity: Worry: Not on file Inability: Not on file Transportation needs: Medical: Not on file Non-medical: Not on file Tobacco Use Smoking status: Former Smoker Packs/day: 1.00 Years: 23.00 Pack years: 23.00 Types: Cigarettes Last attempt to quit: 04/28/2011 Years since quittin.6 Smokeless tobacco: Former User Types: Chew Quit date: 1979 Substance and Sexual Activity Alcohol use: Not Currently Comment: Quit 22 years ago Drug use: Not Currently Types: Smoke Comment: methamphetamins, Cannabis. Quit in 2012 Sexual activity: Not Currently Partners: Female Lifestyle Physical activity: Days per week: Not on file Minutes per session: Not on file Stress: Not on file Relationships Social connections: Talks on phone: Not on file Gets together: Not on file Attends religion service: Not on file Active member of club or organization: Not on file Attends meetings of clubs or organizations: Not on file Relationship status: Not on file Other Topics Concern Not on file Social History Narrative Lives with with son FAMILY HISTORY: Family History Problem Relation Heart Attack Mother Other Father Fall No Known Problems Sister Alcohol abuse Brother Diabetes Sister REVIEW OF SYSTEMS: Weight: stable Activity level: walks for 30 - 40 minutes on non-dialysis days. Constitutional: No fevers, chills, sweats. Eye: No recent visual problems ENMT: No recent ear pain, nasal congestion, sore throat. Respiratory: No recent shortness of breath, cough or expectoration. Cardiovascular: No recent chest pain, palpitations, syncope. Gastrointestinal: No nausea, vomiting, diarrhea Genitourinary: No hematuria or dysuria. Martin/Lymph: Negative for bruising tendency, swollen lymph glands Endocrine: Negative for excessive thirst, excessive hunger. Musculoskeletal: No back pain, neck pain, joint pain, muscle pain, decreased range of gini on Integumentary: No rash, pruritus, abrasions. No skin cancers. Neurologic: TIA: as above; CVA: no. Psychiatric: No anxiety, depression Immunologic/Allergic: No symptoms. Blood Transfusions: yes (2012); VZ: yes; Shingles: yes (2016). Previous transplants: none. All other systems were reviewed and found to be negative. MEDICATION ALLERGIES: Allergies Allergen Reactions Azithromycin Rash Unknown Unknown Lisinopril Hives "makes me sweat and knocked me out" "makes me sweat and knocked me out" Penicillins Hives and Rash Unknown- not sure 10/08/12: Patient tolerated Ceftriaxone during previous admissions. Rash on fingers and hands Unknown- not sure 10/08/12: Patient tolerated Ceftriaxone during previous admissions. Rash on fingers and hands Latex Rash Skin "melted" off Skin "melted" off CURRENT MEDICATIONS: Current Outpatient Medications Medication Sig acetaminophen 325 mg oral tablet Take 650 mg by mouth every 6 hours as needed for Pain. albuterol 90 mcg/actuation inhalation HFA aerosol inhaler Inhale 2 puffs into the lungs every 4 (four) hours as needed for Wheezing. allopurinoL 100 mg oral tablet Take 100 mg by mouth daily. Indications: Primary Gout amLODIPine 10 mg oral tablet Take 10 mg by mouth Daily. aspirin EC 81 mg oral tablet,delayed release (DR/EC) Take 81 mg by mouth. carvediloL 3.125 mg oral tablet Take 2 tablets by mouth 2 (two) times daily with meals. ergocalciferol 50,000 unit oral capsule Take 50,000 Units by mouth. fluticasone propion-salmeteroL 250-50 mcg/dose inhalation blister with device Inhale 1 puff into the lungs 2 (two) times daily. Lanthanum 1,000 mg oral tablet,chewable levothyroxine 75 mcg oral tablet Take 75 mcg by mouth every morning (before breakfast). warfarin 2.5 mg oral tablet No current facility-administered medications for this visit. PHYSICAL EXAM: Vital Signs: BP 155/72 | Pulse 91 | Temp 36.7 C (98 F) (Temporal) | Ht 1.683 m (5' 6.25") | Wt 8 4.8 kg (186 lb 14.4 oz) | SpO2 100% | BMI 29.94 kg/m | BSA 1.99 m General Exam: Well dressed and well-groomed man in no apparent distress. Eyes: Opacity of the right cornea. Left pupils round and reactive to light. Conjunctival pa llor: none ENMT: External appearance of the ears and nose is normal. Oral mucosa is moist. Poor dentit ion with several broken teeth and periodontal disease. Neck: centered trachea, no thyromegaly. Heme/Lymph: No palpable cervical, axillary, or inguinal lymphoadenopathy. Cardiovascular: No JVD or carotid bruits. Normal heart rate and regular rhythm. Normal hear t sounds are heard with no pericardial friction rub. Patient has a systolic murmur. No edema of lower extremities. Femoral pulses and dorsalis pedis pulses were felt bilaterally. Respiratory: Breathing pattern is normal. lungs were clear to auscultation bilaterally. Gastrointestinal: Abdomen is soft and non tender. Normal bowel sounds are appreciated. no p alpable organomegaly or masses were felt. No evidence of umbilical hernia. Genito-urinary: Normal genitalia. no CVA tenderness or inguinal hernia felt. Musculo skeletal: normal muscle tone. No bone deformities appreciated. Neurologic: alert and oriented to person, place, and time. Motor function is grossly normal . No tremors. Psychiatric: Appropriate mood and affect. Skin: no rashes or ulcerations. Access for dialysis: [facility]. He plans to go on waiting list. ASSESSMENT: Based on this initial consultation, Enrique Potter is considered a medically suitable can didate to complete evaluation for kidney transplantation. I discussed the following issues w ith patient today: Diabetes mellitus. I explained to the patient that strict diabetes control would minimize surgical and medical complications post-transplant and would prevent the development of diabetic nephropathy in the allograft. I told the patient that the expectation post-transplant is that blood glucose levels will be checked before each meal and at bedtime (i.e., four times daily) and the ratna betes control would be affected by a functioning kidney and the immunosuppressive medication s. Insulin may be required after transplantation. Cardiovascular screening. I explained to the patient that patients with CKD are at increased risk of cardiovascular e vents, especially in the immediate post-operative period and within the first year post duval splant. Patient should have a 12-lead EKG, a myocardial perfusion scan, and an echocardiogra m prior to listing. Further testing such as a coronary angiogram may be indicated, based on the results of these tests. In case patient has already had some of these tests done in rece nt past, we should retrieve and review these results. Screening for malignancies. I explained to the patient that the incidence of malignancies is increase post transplantat ion, due to decreased immunosurveillance induced by immunosuppressive agents. Patient should undergo a chest X-ray, a screening colonoscopy, and a PSA prior to listing. He may have had those in the recent past and in that case we should retrieve and review the results. Poor dentition. I seldom recommend dental clearance but in his case I will do so. I explained to him that p eriodontal disease is a risk factor for overwhelming infection following initiation of immun osuppression. Chronic anticoagulation. Due to SVC stenting. This will increase his risk of bleeding post surgery. Psychosocial issues. I would defer to the Mutual Fund Accountant Evaluation. Living Donors. Patient was unable to identify any willing living donor. I discussed in detail the indications for kidney transplant including longevity and improve d quality of life, the types of kidney donors (living and ), the types of d onors (standard, KDPI >85%, donation after Cardiac , PHS high risk, donors with previou s exposure to Hepatitis B and/or Hepatitis C, and the average wait time to receive each type of kidney and its expected average survival. I also reviewed the operative procedure, the i npatient hospitalization, and the most common potential short-term and long-term complicatio ns of kidney transplantation. I described the expectations regarding short-term and long-ter m follow up needed to maintain a healthy kidney transplant state, the complications of immun osuppression including, but not limited to, increased incidence of infections and malignanci es, and the fact that kidney transplantation is not the only therapy for advanced-stages of chronic kidney disease and dialysis is an acceptable alternative. I also explained that duval splanted kidneys work only for a certain period of time (which is impossible to predict) and other therapies (i.e., dialysis or re-transplantation) would be needed after the transplant fails. He was advised that additional diagnostic testing might be requested and was told about the multidisciplinary conference that will be held to discuss the results of the testing that a ccompanies this evaluation. Final recommendations will be made following the multidiscipli nary conference. Taiwo Marin MD [facility] [address] [facility] [address] [place] [address] Patient Active Problem List CKD (chronic kidney disease) requiring chronic dialysis (HCC) [N18.6, Z99.2] Biopsy proven DM End Stage Renal Disease 04/10/2012 current modality in center HD Type 2 diabetes mellitus with ESRD (end-stage renal disease) (HCC) [E11.22, N18.6] Onset of diabetes: 1982 KIDNEY, NEEDLE CORE BIOPSY (04/10/2012): -SEVERE NODULAR AND GLOBAL GLOMERULOSCLEROSIS CONSISTENT WITH DIABETIC NEPHROPATHY. -HYPERTENSIVE VASCULAR CHANGES. -SEVERE TUBULAR ATROPHY AND INTERSTITIAL FIBROSIS. 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 Was intubated at OSH given concern for upper aiway e jay and transferred here. L sided tunneled line removed and IR did baloon angioplasty of th e R subclavian stent and SVC with good flow. Gout, unspecified [M10.9] Chronic obstructive asthma (HCC) [J44.9] On inhalers. Denied prior mechanical ventilation. RED CELL ANTIBODIES - allow additional time for crossmatch [T80.92XA] Patient is sensitized against red cell antigen "K". Approximately 90% of units are expect ed to be compatible. Allow at least 2-3 hours for completion of crossmatch. History of polysubstance abuse (HCC) [F19.10] Amphetamine and other psychostimulant dependence, continuous 04/02/2012 Quit in 2013 Staphylococcus aureus bacteremia [R78.81, B95.61] MRSA infection 01/2018 Treated with Vancomycin x 6 weeks. History of peptic ulcer disease [K27.9] 2011 GIB requiring transfusions H/O arthroscopy of knee [Z98.890] Chronic systolic (congestive) heart failure (HCC) [I50.22] History of blood transfusion [Z92.89] 2011 DVT (deep venous thrombosis) ([facility]) [I82.409] Per chart review X 3 documented in this encounter Plan of Treatment +--------+ + [...] [address] | | | | | | [place], [place] | | | | | | [address] | | | | | | [phone] | | | | | | | [...] Rd | | | | | | [facility] [place] | | | | | | [address] | | | | | | [phone] | | | | | | | | +--------+ + + + + | 03/23/ | Appointment | Radiology | Taiwo Marin | | | 2019 | | | MD Genesis [address] | | | | | | [address] | | | | | | [facility] [place] | | | | | | [address] | | | | | | [phone] | | | | | | | | +--------+ + + + + | 03/23/ | Office | Social Work | Lina Rodriguez, | | | 2019 | Visit | | AUDIO VISUAL PRODUCTION SPECIALIST [address] [facility] | | | | | | [address] | | | | | | [place], [place] | | | | | | [address] | | | | | | [phone] | | +--------+ + + + + | 03/24/ | Telephone-S | Nutrition | Debby Salvador, | | | 2019 | cheduled | | [address] | | | | | | [address] | | | | | | [place], [place] | | | | | | [address] | | | | | | [phone] | | | | | | | | +--------+ + + + + documented as of this encounter Visit Diagnoses + + | Diagnosis | + + | Encounter for pre-transplant evaluation for chronic kidney disease - Primary | + + | CKD (chronic kidney disease) requiring chronic dialysis (HCC) End stage renal disease | + + | Type 2 diabetes mellitus with ESRD (end-stage renal disease) ([facility]) Type II or | | unspecified type diabetes mellitus with renal manifestations, not stated as uncontrolled | + + | Secondary hypertension due to renal disease Other secondary hypertension, unspecified | + + | Chronic obstructive asthma ([facility]) Chronic obstructive asthma, unspecified | + + | SVC syndrome Compression of vein | + + | Chronic anticoagulation Encounter for long-term (current) use of anticoagulants | + + | Gout, unspecified cause, unspecified chronicity, unspecified site | + + | Polysubstance abuse (HCC) Other, mixed, or unspecified nondependent drug abuse, | | unspecified | + + documented in this encounter
--- OUTSIDE RECORDS SUMMARY | ~2020-03-11 | XMS | Encounter Summary ---
Demographics + + + | Address | [address] | | | [place] [address] | + + + | Home Phone | | + + + | Preferred Language | Unknown | + + + | Marital Status | Single | + + + | Anabaptist Affiliation | Unknown | + + + | Race | or | + + + | Ethnic Group | Not or | + + + Author + + + | Author | [facility] | + + + | Organization | [facility] [employer] [facility] | + + + | Address | Unknown | + + + | Phone | Unavailable | + + + Support + + +---------+ + | Name | Relationship | Address | Phone | + + +---------+ + | Cristel Tariq | ECON | Unknown | | + + +---------+ + | Momonaren Quiroga | ECON | Unknown | | + + +---------+ + Care Team Providers + +------+ + | Care Analytics Director Name | Role | Phone | + +------+ + | Berenice Hicks | PCP | | + +------+ + Reason for Visit + +--------+ + | Reason | Onset | Comments | | | Date | | + +--------+ + | Financial Review | 10/13/ | | | | 2020 | | [...] | | [address] | [place], | | | | | [place], | [place] [address] | | | | | [place] [address] | | | | | | [phone] | | | +--------+ + + + [...] this encounter Miscellaneous Notes Telephone Encounter - SanaNuvia - 10/14/2019 12:46 PM PDTFinancial Status: GO Policy: A Transplant Candidate must present evidence of sufficient insurance and/or financi al coverage for the typical charges for the transplant evaluation, pre-transplant maintenanc e while on the wait list, transplant procedure, and appropriate care and medication after tr ansplant. Citizenship and immigration status will not impact transplant candidacy. This 54 y.o. patient has adequate insurance and resources for transplant surgery and post transplant care. He lives in [place], [place] Patient meets Financial Criteria due to: [x] In Network Plan [x] Adequate Out of Pocket Coverage Financial Risks Identified: None, I didn't s/w pt Insurance/Financial: 1. [facility] A & B 2. [place] Open Card Medicaid with Limited Drug + QMB 3. [employer] RX Part D Fpc Plan: Stable documented in this encoun ter Plan of Treatment +--------+ + + + [...] [address] | | | | | | [place], [place] | | | | | | [address] | | | | | | [phone] | | | | | | | | +--------+ + + + + | 03/22/ | Appointment | Cardiology | | | | 2019 | | | | | +--------+ + + + + | 03/22/ | Appointment | Radiology | Taiwo Marin | | | 2019 | | | MD [facility] [address] | | | | | | [address] | | | | | | [place], [place] | | | | | | [address] | | | | | | [phone] | | | | | | | | +--------+ + + + + | 03/23/ | Appointment | Radiology | Taiow Marin | | 2019 | | | MD Forrest [address] | | | | | | [address] | | | | | | [place], [place] | | | | | | [address] | | | | | | [phone] | | | | | | | | +--------+ + + + + | 03/23/ | Office | Social Work | Lina Rodriguez, | | | 2019 | Visit | | [facility] [address] | | | | | | [address] | | | | | | [place], [place] | | | | | | [address] | | | | | | [phone] | | +--------+ + + + + | 03/24/ | Telephone-S | Nutrition | Debby Salvador, | | | 2019 | cheduled | | [address] | | | | | | [address] | | | | | | [place], [place] | | | | | | [address] | | | | | | [phone] | | | | | | | | +--------+ + + + + documented as of this encounter Visit Diagnoses Not on filedocumented in this encounter"
--- OUTSIDE RECORDS SUMMARY | ~2020-03-11 | XMS | Encounter Summary ---
Demographics + + + | Address | [address] | | | [place] [address] | + + + | Home Phone [...] Team Providers + +------+ + | Care Music Composition Teacher Name | Role | Phone | + +------+ + PCP | Unavailable | + +------+ + Encounter Details +--------+ + + + + | Date | Type | Department | Care Team | Description | +--------+ + + + + | 12/23/ | Hospital | [facility] | Conversion | ESRD (end stage | | 2014 | Encounter | [facility] | Transaction, | renal disease) (HCC) | | | | [address] | Provider Unknown | | | | | [place], [place] | [phone] | | | | | [address] | | | | | | [phone] | Juan Timmons MD | | | | | | [address] | | | | | | [address] [place], [place] | | | | | | [address] | | | | | | | [...] Service: (none) Author Type: Physician Filed: 12/23/13 1275 Date of Service: 12/23/131201 Status: Signed Clamper: Melvi Tate MD (Physician) [facility]: Interventional Radiology Pre-Operative History & Physical [...] W/ EGD; Surgeon: John Singleton MD; Location: [facility] ENDOSCOPY; Se rvice: Gastroenterology; Laterality: N/A; Av fistula placement 05/06/2012 Procedure: AV FISTULA; Surgeon: Oskar Meyer MD; Location: [facility] MAIN OR; Service: Vascul ar; Laterality: Left; Left arm possible right Unlisted procedure arthroscopy shoulder rt , ligaments Knee arthroscopy 07/07/2012 Procedure: KNEE - ARTHROSCOPY; Surgeon: Favio Raza MD; Location: [facility] MAIN OR; S ervice: Orthopedics; Laterality: Right; After 1530 Catheter removal 07/07/2012 Procedure: DIALYSIS CATHETER REMOVAL; Surgeon: Oskar Meyer MD; Location: [facility] [place]IDE [place]URE; Service: General; Laterality: Right; perm cath Dialysis fistula creation 07/07/2012 Procedure: DIALYSIS CATHETER INSERTION; Surgeon: Oskar Meyer MD; Location: [facility] BEDSIDE PROCEDURE; Service: General; Laterality: Left; temporary dialysis catheter Av fistula repair 07/11/2012 Procedure: AV FISTULA GRAFT REPAIR/REVISION; Surgeon: Oskar Meyer MD; Location: [facility] OR; Service: Vascular; Laterality: Left; Superficialization of brachiobasilic fistula and right IJ perm cath insertion Dialysis fistula creation 07/11/2012 Procedure: DIALYSIS CATHETER INSERTION; Surgeon: Oskar Meyer MD; Location: [facility] MAIN OR; Service: Vascular; Laterality: Left; [...] Status: Prior Primary Care Physician: [facility] Pelon Tate MD 12/23/2013 *CORE MEASURES [...] Physician Filed: 12/23/13 1206 Date of Service: 12/23/13 1204 Status: Signed Clamper: Melvi Tate MD (Physician) [facility]: Interventional Radiology Brief Op Note Pre-operative [...] EXTERNAL LAB | | Testing performed at [facility];[address] [place] [address];[place] [address] MRSA PCR | | | NEGATIVE Testing performed at | | | [facility];[address] [place] [address];[place] [address] | | + + + + +---------+ [...] | | | Patient | performed at [facility];[address] | | LAB | | | [address];[place], [place] | | | | | | [address] | | | | + + + [...] | | | | | performed at [facility];[address] | | | | | | [address];[place], [place] | | | | | | [address] | | | | + + + [...] EXTERNAL | | | | performed at [facility];[address] | | LAB | | | | [address];[place] | | | | | | [address] | | | | + + + + + + | Non- | 3.70 (L)Comment: Testing | 4.20 - 5.70 | EXTERNAL | | | Red Blood | performed at [facility];[address] | M/uL | LAB | | | Cells | [address];[place] | | | | | Counted | [address] | | | | + + + + + + | Hemoglobin | 11.6 (L)Comment: Testing | 13.2 - 17.0 | EXTERNAL | | | | performed at [facility];[address] | g/dL | LAB | | | | [address];[place] | | | | | | [address] | | | | + + + + + + | Hematocrit, | 34.8 (L)Comment: Testing | 39.0 - 50.0 % | EXTERNAL | | | POC | performed at [facility];[address] | | LAB | | | | [address];[place] | | | | | | [address] | | | | + + + + + + | MCV | 93.9Comment: Testing | 80.0 - 100.0 fl | EXTERNAL | | | | performed at [facility];[address] | | LAB | | | | [address];[place] | | | | | | [address] | | | | + + + + + + | MCH | 31.4Comment: Testing | 27.0 - 34.0 pg | EXTERNAL | | | | performed at [facility];[address] | | LAB | | | | [address];[place] | | | | | | [address] | | | | + + + + + + | MCHC | 33.5Comment: Testing | 32.0 - 35.5 | EXTERNAL | | | | performed at [facility];[address] | g/dL | LAB | | | | [address];[place] | | | | | | [address] | | | | + + + + + + | RDW-CV | 48.1Comment: Testing | 37 - 53 fl | EXTERNAL | | | | performed at [facility];[address] | | LAB | | | | [address];[place] | | | | | | [address] | | | | + + + + + + | Platelet | 257Comment: Testing | 150 - 400 K/uL | EXTERNAL | | | Count | performed at [facility];[address] | | LAB | | | Plasma | [address];[place] | | | | | | [address] | | | | + + + + + + | MPV | 6.5Comment: Testing | fl | EXTERNAL | | | | performed at [facility];[address] | | LAB | | | | [address];[place] | | | | | | [address] | | | | + + + + + + | Differentia | AUTOMATEDComment: | | EXTERNAL | | | l Type | Testing performed at | | LAB | | | | [facility];[address];[place] [address] | | | | + + + + + + | % Segmented | 65.0Comment: Testing | % | EXTERNAL | | | | performed at [facility];[address] | | LAB | | | Neutrophils | [address];[place] | | | | | | [address] | | | | + + + + + + | % | 15.6Comment: Testing | % | EXTERNAL | | | Lymphocytes | performed at [facility];[address] | | LAB | | | | [address];[place] | | | | | | [address] | | | | + + + + + + | % Monocytes | 13.9Comment: Testing | % | EXTERNAL | | | | performed at [facility];[address] | | LAB | | | | [address];[place] | | | | | | [address] | | | | + + + + + + | % | 4.9Comment: Testing | % | EXTERNAL | | | Eosinophils | performed at [facility];[address] | | LAB | | | | [address];[place] | | | | | | [address] | | | | + + + + + + | % Basophils | 0.6Comment: Testing | % | EXTERNAL | | | | performed at [facility];[address] | | LAB | | | | [address];[place] | | | | | | [address] | | | | + + + + + + | Absolute | 5.2Comment: Testing | 1.9 - 7.4 K/uL | EXTERNAL | | | Segmented | performed at [facility];[address] | | LAB | | | Neutrophils | [address];[place] | | | | | | [address] | | | | + + + + + + | Absolute | 1.2Comment: Testing | 1.0 - 3.9 K/uL | EXTERNAL | | | Lymphocytes | performed at [facility];[address] | | LAB | | | | [address];[place] | | | | | | [address] | | | | + + + + + + | Absolute | 1.1 (H)Comment: Testing | 0 - 0.8 K/uL | EXTERNAL | | | Monocytes | performed at [facility];[address] | | LAB | | | | [address];[place] | | | | | | [address] | | | | + + + + + + | Absolute | 0.4Comment: Testing | 0 - 0.5 K/uL | EXTERNAL | | | Eosinophils | performed at [facility];[address] | | LAB | | | | [address];[place] | | | | | | [address] | | | | + + + + + + | Absolute | 0.0Comment: Testing | 0 - 0.1 K/uL | EXTERNAL | | | Basophils | performed at [facility];[address] | | LAB | | | | [address];[place] | | | | | | [address] | | | | + + + [...] EXTERNAL | | | | performed at [facility];[address] | mmol/L | LAB | | | | [address];[place] | | | | | | [address] | | | | + + + + + + | K | 3.5Comment: Testing | 3.5 - 4.9 | EXTERNAL | | | | performed at [facility];[address] | mmol/L | LAB | | | | [address];[place] | | | | | | [address] | | | | + + + + + + | Cl | 88 (L)Comment: Testing | 99 - 109 mmol/L | EXTERNAL | | | | performed at [facility];[address] | | LAB | | | | [address];[place] | | | | | | [address] | | | | + + + + + + | CO2 | 30Comment: Testing | 23 - 32 mmol/L | EXTERNAL | | | | performed at [facility];[address] | | LAB | | | | [address];[place] | | | | | | [address] | | | | + + + + + + | Anion Gap | 16Comment: Testing | 5 - 20 mmol/L | EXTERNAL | | | | performed at [facility];[address] | | LAB | | | | [address];[place] | | | | | | [address] | | | | + + + + + + | Glucose, | 101 (H)Comment: Testing | 65 - 99 mg/dL | EXTERNAL | | | Fasting | performed at [facility];[address] | | LAB | | | | [address];[place] | | | | | | [address] | | | | + + + + + + | BUN | 37 (H)Comment: Testing | 8 - 25 mg/dL | EXTERNAL | | | | performed at [facility];[address] | | LAB | | | | [address];[place] | | | | | | [address] | | | | + + + + + + | Creatinine | 9.47 (H)Comment: Testing | 0.70 - 1.30 | EXTERNAL | | | | performed at [facility];[address] | mg/dL | LAB | | | | [address];[place] | | | | | | [address] | | | | + + + + + + | BUN/Creatin | 4Comment: Testing | | EXTERNAL | | | ine Ratio | performed at [facility];[address] | | LAB | | | | [address];[place] | | | | | | [address] | | | | + + + + + + | Calcium | 8.2 (L)Comment: Testing | 8.5 - 10.2 | EXTERNAL | | | | performed at [facility];[address] | mg/dL | LAB | | | | [address];[place] | | | | | | [address] | | | | + + + [...] | | | | | | at [facility];[address] [place] [address] | | | | | | [facility];[place] [address] | | | | + + + [...]
--- OUTSIDE RECORDS SUMMARY | ~2020-03-11 | XMS | Encounter Summary ---
Demographics + + + | Address | [address] | | | [place] [address] | + + + | Home Phone | | + + + | Preferred Language | Unknown | + + + | Marital Status | Unknown | + + + | Hindu Affiliation [...] Team Providers + +------+ + | Care Internship Coordinator Name | Role | Phone | + +------+ + PCP | Unavailable | + +------+ + Encounter Details +--------+ + + + + | Date | Type | Department | Care Team | Description | +--------+ + + + + | 02/15/ | Hospital | [facility] | Katie, | ESRD (end stage | | 2017 - | Encounter | [facility] | MD Frank [address] | renal disease) on | | | | CARE FLOOR [phone] | dialysis (HCC); | | 02/19/ | | [address] | [place] [address] | Corneal ulcer, | | 2016 | | [place], [place] | [phone] | right; Acidemia; | | | | [address] | | Hyperkalemia; Rash | | | | [phone] | | | +--------+ + + + [...] Physician Filed: 02/19/17 1137 Date of Service: 02/19/171122 Status: Signed Slubber Frame Changer: Khanh Rangel MD (Physician) [facility] Service: Hospitalist Discharge Summary Date of Admission: 02/15/2017 Date of Discharge: 02/19/2017 Discharge Provider: Khanh Rangel MD Treatment Team: Consulting Physician: Fela Mayberry MD Admitting Provider: Frank Haji MD Discharge Diagnoses: Principal Problem: ESRD (end [...] Dr Timmons and even tually went to [facility] and he was then transferred to [facility] for management. His labs showed [...] IV So lumedrol and case was discussed Dermatology services. The skin lesion pictures were forwa rded to Dr. Mitchell contract design agent from Dermatology services who agreed with steroid [...] inhaler any more, no symptoms AV fistula ([facility]) lt arm 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 Chronic obstructive asthma with exacerbation ([facility]) 10/27/2013 Chronic systolic heart failure ([facility]) 09/10/2016 Diabetes mellitus type I ([facility]) Dialysis patient ([facility]) DVT (deep venous thrombosis) ([facility]) x3 GI bleed 04/30/2012 from coumadin Gout Hyperkalemia 11/09/2013 Hyperlipidemia Hyperphosphatemia 05/24/2012 Hypertension Hyponatremia 09/08/2016 Knee pain, right 07/06/2012 MSSA (methicillin susceptible Staphylococcus aureus) infection 04/11/2012 Neuromuscular disorder ([facility]) neuropathy 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[facility]) 05/01/2012 Rash and nonspecific skin eruption 04/03/2012 SOB (shortness of breath) 10/27/2013 Thyroid disease Walker as ambulation aid Past Surgical History Procedure Laterality Date AV FISTULA PLACEMENT Right 02/09/2014 Procedure: AV FISTULA; Surgeon: Oskar Meyer MD; Location: [facility] MAIN OR; Service: Vascula r; Laterality: Right; AV FISTULA PLACEMENT Left 05/06/2012 Procedure: AV FISTULA; Surgeon: Oskar Meyer MD; Location: [facility] MAIN OR; Service: Vascula r; Laterality: Left; Left arm possible right AV FISTULA REPAIR Left 07/11/2012 Procedure: AV FISTULA - GRAFT REPAIR/REVISION; Surgeon: Oskar Meyer MD; Location: [facility] IN OR; Service: Vascular; Laterality: Left; Superficialization of brachiobasilic fistula and right IJ perm cath insertion CATHETER REMOVAL Right 07/07/2012 Procedure: DIALYSIS CATHETER - REMOVAL; Surgeon: Oskar Meyer MD; Location: [facility] BEDSIDE P ROCEDURE; Service: General; Laterality: Right; perm cath COLONOSCOPY WITH EGD N/A 05/01/2012 Procedure: COLONOSCOPY W/ EGD; Surgeon: John Singleton MD; Location: [facility] ENDOSCOPY; Ser vice: Gastroenterology; Laterality: N/A; DIALYSIS FISTULA CREATION Left 07/11/2012 Procedure: DIALYSIS CATHETER - INSERTION; Surgeon: Oskar Meyer MD; Location: [facility] MAIN OR ; Service: Vascular; Laterality: Left; removed dialysis catheter from left neck and place d new on in left chest, attempted in right neck but unable to place DIALYSIS FISTULA CREATION Left 07/07/2012 Procedure: DIALYSIS CATHETER - INSERTION; Surgeon: Oskar Meyer MD; Location: [facility] BEDSIDE PROCEDURE; Service: General; Laterality: Left; temporary dialysis catheter KNEE ARTHROSCOPY Right 07/07/2012 Procedure: KNEE - ARTHROSCOPY; Surgeon: Favio Raza MD; Location: [facility] MAIN OR; rvice: Orthopedics; Laterality: Right; After 1530 SUPERFICIALIZATION OF AV FISTULA Right 03/30/2014 Procedure: AV FISTULA - SUPERFICIALIZATION; Surgeon: Oskar Meyer MD; Location: [facility] MAIN OR; Service: Vascular; Laterality: [...] arm. DATA Recent Labs Lab 02/18/17 2156 02/17/17 0426 02/16/17 0502 02/15/172017 WBC -- 6.65 6.43 7.95 RBC -- 4.41 4.17* 4.53 HGB 12.7* 12.6* 12.3* 13.3 HCT 36.8* 38.5* 36.9* 39.6 MCV -- 87.2 88.3 87.4 MCH -- 28.6 29.4 29.3 MCHC -- 32.8 33.2 33.5 RDW -- 63.0* 62.1* 64.3* PLT -- 174 193 231 MPV -- 7.2 6.8 6.6 NEUTOPHILPCT -- -- 61.06 65.02 MONOPCT -- -- 5.62 5.53 Recent Labs Lab 02/19/17 0544 02/16/17 0502 02/15/172017 NA 131* < > 137 < > [...] this interval not displayed. Recent Labs Lab 02/17/17 0426 HGBA1C 5.5 LABGLYC 111 Recent Labs Lab 02/15/17 2018 APTT 29 INR 1.0 No results for input(s): TSH, T3FREE, FREET4 in the last 168 hours. Recent Labs Lab 02/15/17 2018 CKTOTAL 240 CKMBINDEX 5.5 HDL CHOL Date [...] venogra m 5. Right brachiocephalic/subclavian venous angioplasty FARM PLANNER: Jimenez Garnica MD, PhD, RPVI PROCEDURE: Informed [...] not pass into the SVC. An 8 American sheath wa s placed and a central venogram was performed which demonstrated a brachiocephalicA/SVC conf luence focal stenosis. Using multiple obliquities, the catheter and wire were successfully p assed beyond the stent into the inferior vena cava. Patient was heparinized An 10 American she ath was placed. A wire and [...] and a small incision was made. A 14.5-American Palindrom e 23 cm tip to cuff hemodialysis [...] been reviewed and interpreted by the physicia demetrius tee as the performing physician in the associated interpretation and report. PLAN Discharge to home with in stable condition. Code Status: Full Code No discharge procedures on file. Follow [place]: [place] [address] [place] [id number] In 1 week Fela Mayberry MD [address] [facility] [place] [id number] In 1 week HD as scheduled. Medication [...] ESRD (end stage renal disease) on dialysis ([facility]) Commonly known as: RENVELA take 3 tablets [...] disc harge summary. Khanh Rangel MD 02/19/2017 documentmariela d in this encounter Medications at Time of [...] | 0 | 10/04/19 | | | (ZOSARAN ODT) 8 mg | | | | [...] 02/19/171815 Date of Service: 02/19/171815 Status: Signed Slubber Frame Changer: Britta Hussein RN (Registered Nurse) Pt. being [...] Service: (none) Author Type: Registered Nurse Filed: 02/19/171742 Date of Service: 02/19/171738 Status: Signed Slubber Frame Changer: Pamela Burch RN (Registered Nurse) CM discussed D/C plans with pt. [place]. Upon discharge wanted meal voucher and stated no ride was available. [facility] and they declined transport based on [place] and pt came to hospital via POV. Wijulio e stated ride coming, now wants gas voucher. has a history of requesting these service s with every admission. Gas voucher was declined. onver quique Transaction, Provider Unknown - 02/19/2017 6:42 AM PDT Nurse Progress Note by Valorie Hannah RN at 02/19/17 0642 Author: Valorie Hannah RN Service: (none) Author Type: Registered Nurse Filed: 02/19/17 0643 Date of Service: 02/19/1742 Status: Signed Slubber Frame Changer: Valorie Hannah RN (Registered Nurse) No changes to initial assessment. Medicated once for pain. No further bleeding noted from t he groin. Will continue to monitor onver quique Transaction, Provider Unknown - 02/19/2017 4:03 AM PDT Nurse Progress Note by Valorie Hannah RN at 02/19/17 0403 Author: Valorie Hannah RN Service: (none) Author Type: Registered Nurse Filed: 02/19/17402 Date of Service: 02/19/17402 Status: Signed Slubber Frame Changer: Valorie Hannah RN (Registered Nurse) 24 hour chart check complete VALORIE HANNAH RN 02/19/2017 4:03 AM onver quique [place]action, Provider Unknown - 02/18/2017 10:23 PM PDT Nurse Progress Note by Valorie Hannah RN at 02/18/172222 Author: Valorie Hannah RN Service: (none) Author Type: Registered Nurse Filed: 02/18/172226 Date of Service: 02/18/172222 Status: Signed Slubber Frame Changer: Valorie Hannah RN (Registered Nurse) Patient sitting in chair [...] t barbie original. Progress Notes by Jose Allan MD at 02/18/171820 Author: Jose Allan MD Service: Hospitalist Author Type: Physician Filed: 02/18/171830 Date of Service: 02/18/171820 Status: Signed Slubber Frame Changer: Jose Allan MD (Physician) [facility] Service: Hospitalist Progress Note Carol Potter 51 y.o. [phone] [id number] male [facility] Hospital Day: LOS: 1 day SUBJECTIVE Patient [...] with Dr Timmons and eventually went to [facility] and he was then transferred to [facility] for management. His labs showed [...] lesion pictures were forwarded to Dr. Mitchell contract design agent from Dermatology services who agreed with steroid [...] ESRD (end stage renal disease) on dialysis ([facility]) Active Problems: Rash Diabetes mellitus with ESRD (end-stage renal disease) ([facility]) HTN (hypertension) Hyponatremia Eczema of both upper extremities ASSESSMENT & PLAN End Stage Renal Disease on Hemodialysis: Nephrology services is on board and resumed hemod ialysis via femoral dialysis. S/P Tunneled dialysis catheter placement today by Dr. Dankia win hout any complications. Dr. Mayberry is managing dialysis, to continue per scheduled MWF and f elenalow closely. Hyponatremia: Mild and multifactorial, due to [...] care and answered h is questions. JOSE ALLAN MD 02/18/2017 onversion Trans action, Provider Unknown - 02/18/2017 4:53 PM PDT Nurse Progress Note by Britta Hussein RN at 02/18/171652 Author: Britta Hussein RN Service: (none) Author Type: Registered Nurse Filed: 02/18/171652 Date of Service: 02/18/171652 Status: Signed Slubber Frame Changer: Britta Hussein RN (Registered Nurse) Diet advanced per order, pt tolerating well. New tunneled catheter site oozing blood, sand bag applied. Bleeding slowing down. Will monitor. onver quique Transaction, Provider Unknown - 02/17/2017 12:49 PM PDT Nurse Progress Note by Maude Fitzgerald RN at 02/17/17 1249 Author: Maude Fitzgerald RN Service: (none) Author Type: Registered Nurse Filed: 02/17/17 1258 Date of Service: 02/17/17 1249 Status: Signed Slubber Frame Changer: Maude Fitzgerald RN (Registered Nurse) Pt has skin lesions on left forearm, right antecubital/bicep, bilateral nipples, and left c debbie. Per MD place fluocinonide cream onto lesions and cover with moistened gauze for 30 min, BID. Pt was educated on purpose and how to apply cream, as this will be a regime he will li sheryl have to continue upon d/c onver quique Transaction, Provider Unknown - 02/17/2017 11:06 AM PDT Case Management by VANDANA Godwin at 02/17/17 1106 Author: VANDANA Godwin Service: (none) Author Type: Oxyacetylene Cutter Filed: 02/17/17 1108 Date of Service: 02/17/17 1106 Status: Signed Slubber Frame Changer: VANDANA Godwin (Oxyacetylene Cutter) 02/17/17 1100 Discharge Planning Evaluation Admitting Diagnosis [...] reason he was admitted, pt lives [place] [facility] with spouse and 2 sons, pt is indpt with adls, iadls, no dme, temp dialysis cathet er placed - pt goes to [facility], [facility] - sister transports to dialysis, CM team to follow for dcp Patient's PCP is: Kelvin Lofton Patient's insurance:[employer] Coverage concerns: no concerns Medication coverage/concerns: no concerns Community resources utilized / needed: none Assistance in transportation: fam to drive home Identification of any specific education / training: TBD Barriers to Discharge / Alternative housing needed: none at this time Anticipated DCP: home with spouse Quinn Quiñonez Jose Amador MD - 02/17/2017 8:21 AM PDTFormatting of this note might be different from t barbie original. Progress Notes by Jose Allan MD at 02/17/17820 Author: Jose Allan MD Service: Hospitalist Author Type: Physician Filed: 02/17/171923 Date of Service: 02/17/17820 Status: Signed Slubber Frame Changer: Jose Allan MD (Physician) [facility] Service: Hospitalist Progress Note Carol Potter 51 y.o. [phone] [id number] male [facility] Hospital Day: LOS: 0 days SUBJECTIVE Patient [...] with Dr Timmons and eventually went to [facility] and he was then transferred to [facility] for management. His labs showed [...] lesion pictures were forwarded to Dr. Mitchell contract design agent from Dermatology services who agreed with steroid [...] renal disease) on dialysis (HCC) Active Problems: Rash Diabetes mellitus with ESRD (end-stage renal disease) ([facility]) HTN (hypertension) Hyponatremia Eczema of both upper [...] care and answered h is questions. JOSE ALLAN MD 02/17/2017 onversion Trans action, Provider Unknown - 02/16/2017 9:21 PM PDT Nurse Progress Note by Sandrita Littlejohn RN at 02/16/172120 Author: Sandrita Littlejohn RN Service: Nephrology Author Type: Registered Nurse Filed: 02/16/172122 Date of Service: 02/16/172120 Status: Signed Slubber Frame Changer: Sandrita Littlejohn RN (Registered Nurse) Hemodialysis Treatment Summary 4 [...] 02/16/171845 Date of Service: 02/16/171843 Status: Signed Slubber Frame Changer: Tracey Cantu RN (Registered Nurse) Pt had unsuccessful IJ placement. Femoral placement successful. Pt currently receiving dial ysis and VS stable. PICC nurse came and placed a PIV in left arm. [facility] Tracey Cantu RN Jose Amador MD - 02/16/2017 9:25 AM PDTFormatting of this note might be different from t he original. Progress Notes by Jose Allan MD at 02/16/17924 Author: Jose Allan MD Service: Hospitalist Author Type: Physician Filed: 02/16/17 1737 Date of Service: 02/16/17924 Status: Signed Slubber Frame Changer: Jose Allan MD (Physician) [facility] Service: Hospitalist Progress Note Carol Potter 51 y.o. [phone] [id number] male [facility] Day: LOS: 0 days SUBJECTIVE Patient [...] co uld not follow up with Dr Tmimons and eventually went to [facility] and he was then transferred to [facility] for management. His labs showed [...] QTC Calculation (Bezet) 488 ms Calculated P Hildebran 47 degrees Calculated R Hildebran 12 degrees Calculated T Hildebran 70 degrees Diagnosis Sinus rhythm with 1st [...] Confirmed by MUSE READ ONLY, -COMPUTER ([id number]), editorial writer ANA M NAVARRO ([id number]) on 02/16/2017 5:51 [...] QTC Calculation (Bezet) 516 ms Calculated P Hildebran 59 degrees Calculated R Hildebran 24 degrees Calculated T Hildebran 73 degrees Diagnosis Sinus rhythm with 1st [...] Range COLOR UA STRAW CLARITY CLEAR Specific [place], UA 1.012 1.002 - 1.030 LEUKOCYTE ESTERASE [...] care and answered h is questions. JOSE ALLAN MD 02/16/2017 onversion Trans action, Provider Unknown - 02/16/2017 6:57 AM PDT Nurse Progress Note by Marc Chang RN at 02/16/17656 Author: Marc Chang RN Service: (none) Author Type: Registered Nurse Filed: 02/16/1759 Date of Service: 02/16/17656 Status: Signed Slubber Frame Changer: Marc Chang RN (Registered Nurse) Critical lab value, CO2-12 received from TC. Called to Makenna Velasco RN with read back. Ramón Chang RN onver quique Transaction, Provider Unknown - 02/16/2017 5:29 AM PDT Progress Notes by Xavier Toro RPH at 02/16/17528 Author: Xavier Toro RPH Service: Pharmacy Author Type: Pharmacist Filed: 02/16/17528 Date of Service: 02/16/17528 Status: Signed Slubber Frame Changer: Xavier Toro RPH (Pharmacist) Note ccl 6.1ml/min ESRD meds reviewed pepcid to daily consider alternate pharmacy will follow rdc 0528 docume nted in this encounter H&P Notes Frank Haji MD - 02/15/2017 10:06 PM PDTFormatting of this note might be diffe rent from the original. H&P by Frank Haji MD at 02/15/172205 Author: Frank Haji MD Service: Hospitalist Author Type: Physician Filed: 02/16/17 0002 Date of Service: 02/15/172205 Status: Addendum Slubber Frame Changer: Frank Haji MD (Physician) Related Notes: Original Note by Frank Haji MD (Physician) filed at 02/15/172229 [facility] Service: Hospitalist Admission History & Physical Date of Admission: 02/15/2017 Requesting Physician: Dr Gtz, Emergency Department Reason for Admission: Hyperkalemia, acedemia History Obtained From: patient CHIEF COMPLAINT: "vascular problems, no HD for 1 week" HISTORY OF PRESENT ILLNESS The patient is 51 y.o. male with significant past medical history of Hypertension, hyperlip idemia, ESRD on HD MWF, DM, hypothyroidism, asthma who presents with vascular problems, no H D for 1 week Patient refers not having HD treatment for almost 1 week, last therapy was last Saturday. Per patient, when he went to receive his HD on Saturday nursing staff was highly concerned for a possible infection surrounding his fistula. Therefore, no HD was given and was recommended t o follow up with his bridal gown fitter for further assessment. He did not go, per patient, he was not able to get in touch with Dr Timmons. He went to [facility] ED for further asse ssment, subsequently, and was told that there was no need for transfer since his labs and ph ysical exam were within normal limits. After 1 week without therapy, his got concerned and brought the patient to [facility] for further management. Here at [facility], patient denies any chest pain, dyspnea, cough, sputum production. No histor y of fever, chills or night sweats. Denies any major lower extremity edema or weight gain. Regarding his rash, he does refers chronic plaques on his body, quite pruritic that gets wo rse with dry hot weather. Denies any recent erythema, edema, or tenderness on his skin and r efers that the plaque on his fistula has been present for a long time. In the ED, patient has remained hemodynamically stable. EKG shows NSR, 1st degree AV block, no peaked T waves. ED provider has already consulted Dr Mayberry, nephrology, who is covering for Dr Timmons. Patient will be admitted under the hospitalist service for continuation of management. REVIEW OF SYSTEMS Review of Systems Constitutional: Positive for fatigue. Negative for chills and fever. HENT: Negative for postnasal drip and rhinorrhea. Respiratory: Positive for wheezing. Negative for apnea, cough, choking, chest tightness and shortness of breath. Cardiovascular: Negative for chest pain, palpitations and leg swelling. Gastrointestinal: Negative for abdominal distention, abdominal pain, diarrhea, nausea, rect al pain and vomiting. Genitourinary: Negative for flank pain and hematuria. Musculoskeletal: Negative for arthralgias and back pain. Skin: Positive for rash. Neurological: Negative for dizziness, seizures, syncope and headaches. Psychiatric/Behavioral: Negative for agitation and confusion. Past Medical History Diagnosis Date Abdominal pain, right upper quadrant 04/13/2012 Amphetamine and other psychostimulant dependence, continuous 04/02/2012 Anemia Anemia due to blood loss 04/30/2012 Asthma pt not using inhaler any more, no symptoms AV fistula ([facility]) lt arm 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 Chronic obstructive asthma with exacerbation ([facility]) 10/27/2013 Chronic systolic heart failure ([facility]) 09/10/2016 Diabetes mellitus type I ([facility]) Dialysis patient ([facility]) DVT (deep venous thrombosis) ([facility]) x3 GI bleed 04/30/2012 from coumadin Gout Hyperkalemia 11/09/2013 Hyperlipidemia Hyperphosphatemia 05/24/2012 Hypertension Hyponatremia 09/08/2016 Knee pain, right 07/06/2012 MSSA (methicillin susceptible Staphylococcus aureus) infection 04/11/2012 Neuromuscular disorder ([facility]) neuropathy 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 Rash and nonspecific skin eruption 04/03/2012 SOB (shortness of breath) 10/27/2013 Thyroid disease Walker as ambulation aid Past Surgical History Procedure Laterality Date AV FISTULA PLACEMENT Right 02/09/2014 Procedure: AV FISTULA; Surgeon: Oskar Meyer MD; Location: [facility] MAIN OR; Service: Vascula r; Laterality: Right; AV FISTULA PLACEMENT Left 05/06/2012 Procedure: AV FISTULA; Surgeon: Oskar Meyer MD; Location: [facility] MAIN OR; Service: Vascula r; Laterality: Left; Left arm possible right AV FISTULA REPAIR Left 07/11/2012 Procedure: AV FISTULA - GRAFT REPAIR/REVISION; Surgeon: Oskar Meyer MD; Location: [facility] IN OR; Service: Vascular; Laterality: Left; Superficialization of brachiobasilic fistula and right IJ perm cath insertion CATHETER REMOVAL Right 07/07/2012 Procedure: DIALYSIS CATHETER - REMOVAL; Surgeon: Oskar Meyer MD; Location: [facility] BEDSIDE P ROCEDURE; Service: General; Laterality: Right; perm cath COLONOSCOPY WITH EGD N/A 05/01/2012 Procedure: COLONOSCOPY W/ EGD; Surgeon: John Singleton MD; Location: [facility] ENDOSCOPY; Ser vice: Gastroenterology; Laterality: N/A; DIALYSIS FISTULA CREATION Left 07/11/2012 Procedure: DIALYSIS CATHETER - INSERTION; Surgeon: Oskar Meyer MD; Location: [facility] MAIN OR ; Service: Vascular; Laterality: Left; removed dialysis catheter from left neck and place d new on in left chest, attempted in right neck but unable to place DIALYSIS FISTULA CREATION Left 07/07/2012 Procedure: DIALYSIS CATHETER - INSERTION; Surgeon: Oskar Meyer MD; Location: [facility] BEDSIDE PROCEDURE; Service: General; Laterality: Left; temporary dialysis catheter KNEE ARTHROSCOPY Right 07/07/2012 Procedure: KNEE - ARTHROSCOPY; Surgeon: Favio Raza MD; Location: [facility] MAIN OR; rvice: Orthopedics; Laterality: Right; After 1530 SUPERFICIALIZATION OF AV FISTULA Right 03/30/2014 Procedure: AV FISTULA - SUPERFICIALIZATION; Surgeon: Oskar Meyer MD; Location: [facility] OR; Service: Vascular; Laterality: Right; UNLISTED PROCEDURE ARTHROSCOPY shoulder rt , ligaments No current facility-administered medications on file prior to encounter. Current Outpatient Prescriptions on File Prior to Encounter Medication Sig Dispense Refill acetaminophen (TYLENOL) 325 MG tablet Take 650 mg by mouth every 6 (six) hours as neede d. Indications: Pain allopurinol (ZYLOPRIM) 100 MG tablet Take 100 mg by mouth daily. Indications: Primary G out amLODIPine (NORVASC) 10 MG tablet Take 10 mg by mouth daily. aspirin 81 MG tablet Take 81 mg by mouth daily. b complex-vitamin c-folic acid (NEPHRO-THU) 0.8 MG TABS tablet Take 1 tablet by mouth daily. 30 tablet 11 carvedilol (COREG) 3.125 MG tablet Take 3.125 mg by mouth 2 (two) times daily with meal s. Cholecalciferol 2000 UNITS TABS Take 1 tablet by mouth daily. levothyroxine (SYNTHROID) 75 MCG tablet Take 75 mcg by mouth every morning before break fast. Indications: Underactive Thyroid ondansetron (ZOFRAN-ODT) 8 MG disintegrating tablet sevelamer (RENVELA) 800 MG tablet take 3 tablets by mouth three times a day WITH MEALS AND 1 TABLET WITH SNACKS 300 tablet 5 sodium bicarbonate 650 MG tablet Take 1,300 mg by mouth 2 (two) times daily. albuterol (PROVENTIL HFA) 108 (90 BASE) MCG/ACT inhaler Inhale 2 puffs into the lungs e very 4 (four) hours as needed for Wheezing. (Patient taking differently: Inhale 2 puffs into the lungs every 4 (four) hours as needed for Wheezing. Took last night) 1 Inhaler 1 budesonide-formoterol (SYMBICORT) 160-4.5 MCG/ACT inhaler Inhale 2 puffs into the lungs 2 (two) times daily. 2 each 0 fluticasone-salmeterol (ADVAIR DISKUS) 250-50 MCG/DOSE Inhale 1 puff into the lungs 2 ( two) times daily. 60 each 0 HYDROcodone-acetaminophen (NORCO) 5-325 MG per tablet montelukast (SINGULAIR) 10 MG tablet Take 1 tablet by mouth nightly. 30 tablet 0 Immunizations: Influenza: Pneumoccocal: Allergies Allergen Reactions Azithromycin Rash Unknown Lisinopril Other (See Comments) "makes me sweat and knocked me out" Penicillins Other (See Comments) Unknown- not sure 10/08/12: Patient tolerated Ceftriaxone during previous admissions. (Not in a hospital admission) Family History Problem Relation Age of Onset Heart disease Mother Heart disease Father Diabetes Father Cancer Father colon cancer Social History Social History Marital status: Spouse [...] KIDS. CURRENTLY UNEMPLOYED, BEFOR E WORKED AT [employer] IN [place]. Quit METHAMPHETAMINES PER PATIENT after t he ARF in mar 2012. FATHER HAS COLON CANCER, HEART DISEASE, MOTHER 15 YEARS AGO. NO FH KIDNEY PROB LEMS. PHYSICAL EXAM Vital Signs: BP (!) 200/94 | Pulse 78 | Temp 96.5 F (35.8 C) (Oral) | Resp 18 | Wt 78.4 kg (172 lb 13.5 oz) | SpO2 98% | BMI 27.07 kg/m Physical Exam Constitutional: He is oriented [...] no wheezes. He has no rales . Abdomina/Gl: Soft. He exhibits no distension. There is no tenderness. There is no guarding. Musculoskeletal: He exhibits no edema. Neurological: He is alert and oriented to person, place, and time. Skin: DATA Results Procedure Component Value Units Date/Time Blood culture, set 2 [[id number]] Collected: 02/15/172023 Specimen: Blood from Blood Line Draw Updated: 02/15/172144 Blood Culture Set 1 [[id number]] Collected: 02/15/172017 Specimen: Blood from Blood, peripheral draw Updated: 02/15/172143 Cardiac Panel [[id number]] (Abnormal) Collected: 02/15/172017 Updated: 02/15/172106 WBC 7.95 K/uL RBC 4.53 M/uL HGB 13.3 g/dL HCT 39.6 % MCV 87.4 fl MCH 29.3 pg MCHC 33.5 g/dL RDW SD 64.3 (H) fl PLT 231 K/uL MPV 6.6 fl DIFF TYPE AUTOMATED NEUTROPHILS 65.02 % LYMPHOCYTES 9.80 % MONOCYTES 5.53 % EOSINOPHILS 18.93 % BASOPHILS 0.72 % NEUTROPHILS ABS 5.17 K/uL LYMPHOCYTES ABS 0.78 (L) K/uL MONOCYTES ABS 0.44 K/uL EOSINOPHILS ABS 1.50 (H) K/uL BASOPHILS ABS 0.06 K/uL MORPHOLOGY 1+ Platelet Estimate ADEQUATE SODIUM 134 (L) mmol/L POTASSIUM 5.9 (H) mmol/L CHLORIDE 106 mmol/L CO2 13 (LL) mmol/L ANION GAP AGAP 20 mmol/L GLUCOSE 82 mg/dL BUN 118 (H) mg/dL CREATININE 13 (H) mg/dL BUN/CREAT 9 CALCIUM 7.7 (L) mg/dL TOTAL PROTEIN 8.6 (H) g/dL Albumin 3.9 g/dL GLOBULIN 4.7 g/dL A/G 0.8 (L) TBIL 0.7 mg/dL ALK PHOS 124 (H) U/L AST 35 U/L ALT 70 (H) U/L EGFR 4 (L) mL/min/1.73m2 CPK 240 U/L INR 1.0 APTT 29 seconds MMB 13.3 (H) ng/mL CK-MB Index 5.5 Septic Lactic Acid [[id number]] Collected: 02/15/172023 Updated: 02/15/172105 LACTIC ACID 0.5 mmol/L BNP [[id number]] (Abnormal) Collected: 02/15/172017 Specimen: Blood Updated: 02/15/172101 BRAIN NATRIURETIC PEPTIDE 253 (H) pg/mL Ammonia level [[id number]] Collected: 02/15/172017 Specimen: Blood Updated: 02/15/172058 AMMONIA 30 umol/L PROBLEM LIST Principal Problem: Hyperkalemia Active Problems: Rash 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) ESRD (end stage renal disease) on dialysis (HCC) ASSESSMENT & PLAN Impression patient is 51 y.o. male with significant past medical history of Hypertension, hyperlipidem ia, ESRD on HD MWF, DM, hypothyroidism, asthma who presents with vascular problems, no HD fo r 1 week EKG - NSR with no acute ST changes, NO peak T waves, normal intervals Assessment -Rash. On his chest, abdomen, arms (including fistula). Lichenified patches appears to be s econdary from his ESRD with secondary changes from chronic itching and scratching (? Lichen simplex chronicus) No signs of ongoing infection. -Hyperkalemia. With no EKG changes. Due to lack of HD therapy for his ESRD -ESRD on HD MWF. Nephrology Dr Timmons -Hx of tobacco and THC use -Asthma hx. With mild wheezing at physical exam -Hypertension -DM -Hypothyroidism Plan Admit to observation - suspect improvement in the next 48 h ED provider already consulted nephrology, Dr Mayberry for HD therapy in the morning after rev iewing fistula Telemetry EKG in the morning BMP q6h for now. Will follow K level closely Kayexalate Bicarbonate already given in the ED UA, urine culture, BC x 2. MRSA by PCR NO antibiotic therapy for now. Will follow above results Duonebs PRN Novolog sliding scale Pain management Antiemetic therapy DVT GI prophylaxis Code status - Full code Addendum Patient with red right eye. ED discussed case with Dr Dickey who recommended bacitracin ointme nt TID and follow up with him at discharge Disposition: Observation Code Status: Prior Primary Care Physician: ANDRY Haji MD 02/15/2017 documented i n this encounter Procedure Notes Fela Mayberry MD - 02/18/2017 5:30 PM PDTFormatting of this note might be different fr om the original. Procedures by Fela Mayberry MD at 02/18/171729 Author: Fela Mayberry MD Service: Nephrology Author Type: Physician Filed: 02/19/17 4569 Date of Service: 02/18/171729 Status: Signed Slubber Frame Changer: Fela Mayberry MD (Physician) The patient is seen & examined during dialysis. he says that he feels HD today. he denies any CP or SOB. The following portions of the patient's history were reviewed and updated as appropriate: l aboratory data, allergies, current medications, and problem list. P.E. BP 146/66 | Pulse 78 | Temp 97.6 F (36.4 C) | Resp 14 | Ht 1.702 m (5' 7") | Wt 78 kg (171 lb 15.3 oz) | SpO2 99% | BMI 26.93 kg/m General appearance: Pleasant, not in acute distress. Lungs: Good A/E to auscultation bilaterally. There are no wheezes. Heart: Regular rate and rhythm without any rub, gallop. Abdominal exam: Soft and nontender with normal bowel sounds. Extremities: Warm to touch with no leg edema. There is no cyanosis. Neurological: Awake, alert, and oriented to time, place, and person. Normal gross motor po wer. There is no asterixis. Access: Fem catheter Lab Results Component Value Date BUN 113 (H) 02/18/2017 CREATININE 11.8 (H) 02/18/2017 EGFR 5 (L) 02/18/2017 NA 129 (L) 02/18/2017 K 4.2 02/18/2017 CL 93 (L) 02/18/2017 CO2 17 (L) 02/18/2017 CA 8.5 02/18/2017 PHOS 7.5 (H) 02/16/2017 MG 3.1 (H) 02/16/2017 ALB 3.8 02/16/2017 HGB 12.6 (L) 02/17/2017 Assessment: Mr. Potter is a 51 y.o. male patient with ESRD Complications identified during his dialysis treatment: FEM CATHETER QUIT WORKING Recommendations:TDC to be placed later today Will resume HD once TDC placed UF as tolerated No IV Epo with HD Advise fluid restriction of 1.2L per 24 hrs Fela Mayberry MD Kemal Belle MD - 02/16/2017 3:24 PM PDTFormatting of this note might be different from the orig inal. Procedures by Kemal Farfan MD at 02/16/17 1524 Author: Kemal Farfan MD Service: Substation Operator Transforming Author Type: Physician Filed: 02/16/17 1526 Date of Service: 02/16/17 152 Status: Signed Slubber Frame Changer: Kemal Farfan MD (Physician) Procedure Orders: 1. Central line [[id number]] ordered by Kemal Farfan MD at 02/16/171523 Post-procedure Diagnoses: 1. ESRD (end stage renal disease) on dialysis (HCC) [N18.6, Z99.2] [facility] Service: Substation Operator Transforming BEDSIDE PROCEDURE NOTE Dialysis catheter Date/Time: 02/16/2017 3:00 PM Performed by: KEMAL FARFAN Authorized by: KEMAL FARFAN Consent: Written consent obtained. Consent given by: patient Required items: required blood products, implants, devices, and special equipment available Patient identity confirmed: arm band Time out: Immediately prior to procedure a "time out" was called to verify the correct mahamed ent, procedure, equipment, technician support association and site/side marked as required. Indications: vascular access Anesthesia: Local Anesthetic: lidocaine 1% without epinephrine Preparation: skin prepped with 2% chlorhexidine Skin prep agent dried: skin prep agent completely dried prior to procedure Sterile barriers: all five maximum sterile barriers used - cap, mask, sterile gown, sterile gloves, and large sterile sheet Hand hygiene: hand hygiene performed prior to central venous catheter insertion Location details: left femoral Patient position: flat Catheter type: triple lumen Catheter size: 7.5 Fr Pre-procedure: landmarks identified Ultrasound guidance: yes Sterile ultrasound techniques: sterile gel and sterile probe covers were used Number of attempts: 1 Successful placement: yes Post-procedure: line sutured Assessment: blood return through all ports Patient tolerance: Patient tolerated the procedure well with no immediate complications Kemal Farfan MD 02/16/2017 Kemal Belle MD - 02/16/2017 3:22 PM PDT Procedures by Kemal Farfan MD at 02/16/17 152 Author: Kemal Farfan MD Service: Substation Operator Transforming Author Type: Physician Filed: 02/16/17 1524 Date of Service: 02/16/171521 Status: Signed Slubber Frame Changer: Kemal Farfan MD (Physician) Procedure Orders: 1. Central line [[id number]] ordered by Kemal Farfan MD at 02/16/17 1522 Post-procedure Diagnoses: 1. ESRD (end stage renal disease) on dialysis (HCC) [N18.6, Z99.2] [facility] Service: Substation Operator Transforming BEDSIDE PROCEDURE NOTE Dialysis catheter Date/Time: 02/16/2017 12:30 PM Performed by: KEMAL FARFAN Authorized by: KEMAL FARFAN Consent: Written consent obtained. Risks and benefits: risks, benefits and alternatives were discussed Consent given by: patient Patient understanding: patient states understanding of the procedure being performed Patient identity confirmed: arm band Time out: Immediately prior to procedure a "time out" was called to verify the correct mahamed ent, procedure, equipment, technician support association and site/side marked as required. Indications: vascular access Anesthesia: local infiltration Anesthesia: Local Anesthetic: lidocaine 1% without epinephrine Preparation: skin prepped with 2% chlorhexidine Skin prep agent dried: skin prep agent completely dried prior to procedure Sterile barriers: all five maximum sterile barriers used - cap, mask, sterile gown, sterile gloves, and large sterile sheet Hand hygiene: hand hygiene performed prior to central venous catheter insertion Location details: left internal jugular Patient position: flat Catheter type: triple lumen Catheter size: 7.5 Fr Pre-procedure: landmarks identified Ultrasound guidance: yes Sterile ultrasound techniques: sterile gel and sterile probe covers were used Number of attempts: 1 Successful placement: yes Post-procedure: line sutured Assessment: blood return through all ports, placement verified by x-ray and no pneumothora x on x-ray Complications: Dialysis catheter noted to be in lt sided accessory veins. Patient tolerance: Patient tolerated the procedure well with no immediate complications Kemal Farfan MD 02/16/2017 documented in this encounter Consult Notes Jimenez Garnica MD - 02/18/2017 11:10 AM PDT Consult* by Jimenez Garnica MD PhD at 02/18/17 1110 Author: Jimenez Garnica MD PhD Service: Interventional Radiology Author Type: Physician Filed: 02/18/17 1134 Date of Service: 02/18/17 1110 Status: Addendum Slubber Frame Changer: Jimenez Garnica MD PhD (Physician) Related Notes: Original Note by Jimenez Garnica MD PhD (Physician) filed at 02/18/17 1136 Vascular & Interventional Radiology Consult Note Patient Name: Carol Potter Date of : 1965 Requesting Provider: Fela Mayberry Consulting Provider: Jimenez Garnica Reason for Referral and Chief Complaint: Vascular access History of Present Illness: Carol Potter is a 51 y.o. male. I was asked to see Carol for evaluation of vascular access t o facilitate hemodialysis. Pt well known to me. Hx of ESRD with right arm brachiobasilic fistula and central venous oc clusion of the right brachiocephalic/subclavian veins which I recanalized and stented 7 complicated by hemopericardium requiring pericardial drain. He was told by dialysis nurses that his right arm fistula had possible infection and dialys is could not be performed through the fistula. He had not received dialysis for wilmer week. Pt hospitalized 02/15/17 for vascular access problem. Over the weekend, attempt was made to pedro ce temporary left dialysis catheter but the wire would not pass centrally so a left femoral line was placed. The left femoral line was used initially for HD but is not functioning this am per pt. He presents for tunneled catheter placement. Hospital Problem List: Patient Active Problem List Diagnosis Rash Vitamin D deficiency Secondary renal hyperparathyroidism (HCC) Hypothyroidism Hypoalbuminemia 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) Obesity (BMI 30-39.9) HTN (hypertension) ESRD (end stage renal disease) on dialysis (HCC) Anemia of chronic kidney failure Gout PUD (peptic ulcer disease) Steroid-induced hyperglycemia Polysubstance abuse Chronic steroid use Hyponatremia S/P pericardiocentesis Chest pain, unspecified Eczema of both upper extremities Review of Systems: Review of Systems Constitutional: Positive for malaise/fatigue. Negative for chills, fever and weight loss. HENT: Negative for congestion and sore throat. Respiratory: Negative for cough, shortness of breath and stridor. Cardiovascular: Negative for chest pain. Gastrointestinal: Negative for heartburn and nausea. Musculoskeletal: Negative for myalgias and neck pain. Skin: Positive for itching and rash. Neurological: Negative for dizziness. Endo/Heme/Allergies: Does not bruise/bleed easily. All other systems negative. Code Status: Full Code Past Medical History: Past Medical History Diagnosis Date Abdominal pain, right upper quadrant 04/13/2012 Amphetamine and other psychostimulant dependence, continuous 04/02/2012 Anemia Anemia due to blood loss 04/30/2012 Asthma pt not using inhaler any more, no symptoms AV fistula ([facility]) lt arm 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 Chronic obstructive asthma with exacerbation ([facility]) 10/27/2013 Chronic systolic heart failure ([facility]) 09/10/2016 Diabetes mellitus type I ([facility]) Dialysis patient ([facility]) DVT (deep venous thrombosis) ([facility]) x3 GI bleed 04/30/2012 from coumadin Gout Hyperkalemia 11/09/2013 Hyperlipidemia Hyperphosphatemia 05/24/2012 Hypertension Hyponatremia 09/08/2016 Knee pain, right 07/06/2012 MSSA (methicillin susceptible Staphylococcus aureus) infection 04/11/2012 Neuromuscular disorder ([facility]) neuropathy 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[facility]) 05/01/2012 Rash and nonspecific skin eruption 04/03/2012 SOB (shortness of breath) 10/27/2013 Thyroid disease Walker as ambulation aid Past Surgical History: Past Surgical History Procedure Laterality Date AV FISTULA PLACEMENT Right 02/09/2014 Procedure: AV FISTULA; Surgeon: Oskar Meyer MD; Location: [facility] MAIN OR; Service: Vascula r; Laterality: Right; AV FISTULA PLACEMENT Left 05/06/2012 Procedure: AV FISTULA; Surgeon: Oskar Meyer MD; Location: [facility] MAIN OR; Service: Vascula r; Laterality: Left; Left arm possible right AV FISTULA REPAIR Left 07/11/2012 Procedure: AV FISTULA - GRAFT REPAIR/REVISION; Surgeon: Oskar Meyer MD; Location: [facility] IN OR; Service: Vascular; Laterality: Left; Superficialization of brachiobasilic fistula and right IJ perm cath insertion CATHETER REMOVAL Right 07/07/2012 Procedure: DIALYSIS CATHETER - REMOVAL; Surgeon: Oskar Meyer MD; Location: [facility] BEDSIDE P ROCEDURE; Service: General; Laterality: Right; perm cath COLONOSCOPY WITH EGD N/A 05/01/2012 Procedure: COLONOSCOPY W/ EGD; Surgeon: John Singleton MD; Location: [facility] ENDOSCOPY; Ser vice: Gastroenterology; Laterality: N/A; DIALYSIS FISTULA CREATION Left 07/11/2012 Procedure: DIALYSIS CATHETER - INSERTION; Surgeon: Oskar Meyer MD; Location: [facility] MAIN OR ; Service: Vascular; Laterality: Left; removed dialysis catheter from left neck and place d new on in left chest, attempted in right neck but unable to place DIALYSIS FISTULA CREATION Left 07/07/2012 Procedure: DIALYSIS CATHETER - INSERTION; Surgeon: Oskar Meyer MD; Location: [facility] BEDSIDE PROCEDURE; Service: General; Laterality: Left; temporary dialysis catheter KNEE ARTHROSCOPY Right 07/07/2012 Procedure: KNEE - ARTHROSCOPY; Surgeon: Favio Raza MD; Location: [facility] MAIN OR; Se rvice: Orthopedics; Laterality: Right; After 1530 SUPERFICIALIZATION OF AV FISTULA Right 03/30/2014 Procedure: AV FISTULA - SUPERFICIALIZATION; Surgeon: Oskar Meyer MD; Location: [facility] MAIN OR; Service: Vascular; Laterality: [...] mar 2012 after ARF Sexual activity: Not Asked Other Topics Concern None Social History Narrative , LIVES WITH . HAS NO BIOLOGICAL KIDS; 2 STEP KIDS. CURRENTLY UNEMPLOYED, BEFOR E WORKED AT [employer] IN [place]. Quit METHAMPHETAMINES PER PATIENT after t he [...] Oral Daily cholecalciferol 1,000 Units Oral Daily clindamycin 900 mg Intravenous Once famotidine 20 mg Intravenous Daily Or famotidine 20 mg Oral Daily fluocinonide Topical TID heparin (porcine) 5000 unit/0.5mL 5,000 Units Subcutaneous 2 times per day insulin lispro (human) 0-3 Units Subcutaneous Nightly insulin lispro (human) 0-6 Units Subcutaneous TID AC levothyroxine 75 mcg Oral QAM AC lidocaine 10 mL Intradermal Once lidocaine buffered 1% 0.5 mL Intradermal Once lidocaine buffered 1% 0.5 mL Intradermal Once mupirocin 1 g Nasal BID predniSONE 60 mg Oral Daily with breakfast sevelamer 1,600 mg Oral TID WC sodium bicarbonate buffer 5 mL Infiltration Once sodium bicarbonate 1,300 mg Oral BID sodium chloride 10 mL Intravenous Q8H dextrose Prescriptions Prior to Admission Medication Sig Dispense [...] mouth daily. 02/14/2017 at Unknown jb e aspirin 81 MG tablet Take 81 mg by mouth daily. 02/15/2017 at Unknown time b complex-vitamin c-folic acid [...] by mouth nightly. 30 tablet 0 Taking @ENCMED@ Allergies: Allergies Allergen Reactions Azithromycin Rash Unknown Lisinopril Other (See Comments) "makes me sweat and knocked me out" Penicillins Other (See Comments) Unknown- not sure 10/08/12: Patient tolerated Ceftriaxone during previous admissions. Labs: 3 Day Labs: Recent Labs Lab 02/18/17 0535 02/17/17 0426 02/16/17 1334 02/16/17 0502 02/15/172017 WBC -- 6.65 -- -- 6.43 -- 7.95 HGB -- 12.6* -- -- 12.3* -- 13.3 HCT -- 38.5* -- -- 36.9* -- 39.6 PLT -- 174 -- -- 193 -- 231 NA 129* 130* 135 < > 137 < > 134* K 4.2 4.1 4.1 < > 4.1 < > 5.9* CL 93* 96* 103 < > 105 < > 106 CO2 17* 18* 15* < > 12* < > 13* BUN 113* 71* 124* < > 117* < > 118* CREATININE 11.8* 9.7* 13* < > 13.2* < > 13* PHOS -- -- -- -- 7.5* -- -- MG -- -- -- -- 3.1* -- -- PROT -- -- -- -- 7.8 -- 8.6* BILITOT -- -- -- -- 0.6 -- 0.7 INR -- -- -- -- -- -- 1.0 BNP -- -- -- -- -- -- 253* HGBA1C -- 5.5 -- -- -- -- -- < > = values in this interval not displayed. Imaging/Procedures: Pertinent Studies and Results Imaging Data: Xr Chest 1 View Result Date: 02/16/2017 [...] or pleural effusion. 1. No acute process. Physical Examination: Vitals: 02/18/17 0923 BP: 161/81 Pulse: 82 Resp: 18 Temp: 97.6 F (36.4 C) SpO2: 100% Physical Exam Constitutional: He is oriented to person, place, and time and well-developed, well-nourishe d, and in no distress. No distress. HENT: Head: Normocephalic and atraumatic. Eyes: EOM are normal. Pupils are equal, round, and reactive to light. Neck: Normal range of motion. Neck supple. No JVD present. No tracheal deviation present. Cardiovascular: Normal rate and regular rhythm. Right arm brachiobasilic fistula with palpable pulsatile thrill. Pulmonary/Chest: Effort normal and breath sounds normal. Abdominal: Soft. He exhibits no distension. There is no tenderness. Musculoskeletal: Normal range of motion. He exhibits edema. Neurological: He is alert and oriented to person, place, and time. Skin: Skin is warm and dry. Skin overlying right arm fistula demonstrates thickened, dry skin c/w lichenification. It i s not warm, erythematous nor tender. Psychiatric: Affect and judgment normal. Plan for Sedation: IV Conscious Sedation with Fentanyl and Versed. Moderate Sedation Presedation Assessment completed. ASA Classification: ASA 2: Patient with a mild systemic disease Mallampati Classification: II: Visibility of hard and soft palate, upper portion of tonsil s and uvula Consent: Risks, alternatives, and benefits of the procedure were discussed with the patient. Questio ns were answered. Signed and verbal consent were given as witnessed by staff. Pre-Procedure Diagnosis: Vascular access issue Procedure to be performed: Tunneled dialysis catheter Assessment and Plan: Vascular access-the skin overlying the fistula demonstrates lichenification but does not ap pear infected. In terms of vascular access, his fistula has a good thrill. He has stents senior microstrategy developer ssing his right internal jugular vein so access choice is limited. Will attempt left sided p lacement. PARQ held, questions answered and pt wishes to proceed. Jimenez Rushing, PhD Interventional Radiology and Vascular Medicine Vascular and Interventional Radiology Available 14/01 through our clinic 509 Fela Landin MD - 02/16/2017 12:26 PM PDT Consult* by Fela Mayberry MD at 02/16/17 2474 Author: Fela Mayberry MD Service: Nephrology Author Type: Physician Filed: 02/16/17 7481 Date of Service: 02/16/176 Status: Addendum Slubber Frame Changer: Fela Mayberry MD (Physician) Related Notes: Original Note by Fela Mayberry MD (Physician) filed at 02/16/17 5118 Hospital Problem List: Principal Problem: Hyperkalemia Active Problems: Rash 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) ESRD (end stage renal disease) on dialysis ([facility]) I was asked by the hospital medicine team team to see Mr. Potter in consult today. [facility] case, I will not state his past history in detail . Briefly, he is a 51 y.o. male patient with history as delineated in the Past Medical & Talat gical History sections. I was called in to evaluate him for need regarding Hemodialysis. This is a 51 y.o. male with significant past medical history of Hypertension, hyperlipidemi a, ESRD on HD MWF, DM, hypothyroidism, asthma who presents to the hospital with rash that johnson s spread to his R arm, covering his AVF, He missed HD X 1 week. He get HD in [facility], his bridal gown fitter Dr Timmons. He states that he had this rash for long time, was treated in the past with systemic steroi ds and he responded to treatment. History & ROS obtained from : pt, chart review, . He says that he feels 'good ' today. No history of blurred vision tinnitus, headache, fever, chills, or cough. No nausea, vomiting, abdominal pain, diarrhea, melena, or hematochezia. No chest pain, palpitation, dizziness, loss of consciousness, orthopnea, paroxysmal nocturnal dyspnea, or leg edema. No dysuria, i ncontinence, or symptoms of UTI. The following portions of the patient's history [...] BID WC cholecalciferol 1,000 Units Oral Daily [START ON 02/17/2017] famotidine 20 mg Intravenous Daily Or [START ON 02/17/2017] famotidine 20 mg Oral Daily heparin (porcine) 5000 unit/0.5mL 5,000 Units Subcutaneous 2 times per day insulin lispro (human) 0-3 Units Subcutaneous Nightly insulin lispro (human) 0-6 Units Subcutaneous TID AC levothyroxine 75 mcg Oral QAM AC lidocaine buffered 1% 0.5 mL Intradermal Once sevelamer 1,600 mg Oral TID WC sodium bicarbonate 1,300 mg Oral BID dextrose No intake/output data recorded. No intake/output data recorded. P.E. BP 161/77 (BP Location: Left upper arm) | Pulse 76 | Temp 97.7 F (36.5 C) (Oral) | R cici 20 | Ht 1.702 m (5' 7") | Wt 77.7 kg (171 lb 4.8 oz) | SpO2 99% | BMI 26.83 kg/m General appearance: Pleasant, not in acute [...] There are no rashes, petechiae, or ecchymosis. Neurological: Awake, alert, and oriented to time, place, and person. Psychiatric: The patient s behavior is normal. Judgment and thought content are normal. Lab Results Component Value Date BUN 117 (H) 02/16/2017 CREATININE 13.2 (H) 02/16/2017 EGFR 4 (L) 02/16/2017 NA 137 02/16/2017 K 4.1 02/16/2017 CL 105 02/16/2017 CO2 12 (LL) 02/16/2017 CA 7.5 (L) 02/16/2017 PHOS 7.5 (H) 02/16/2017 MG 3.1 (H) 02/16/2017 ALB 3.8 02/16/2017 HGB 12.3 (L) 02/16/2017 Assessment Recommendations: Mr. Potter is a 51 y.o. male patient with ESRD on HD who missed treatment for about a week. Rash Suggest derm consult If not available I will place a temp HD, as he will need an urgent treatment ESRD The pt will need HD today We'll arrange for a temp access Met Acidosis HD will help Anemia Sec to ESRD No ANAYA Bone mineral disease Phos binders Renal diet HD HTN UF will help I discussed with the hospital medicine team the case at the time of this encounter. I spent 70 minutes today in interviewing & examining the patient, reviewing & updating the patient's chart, formulating a plan, in addition to patient education and discussions with t barbie primary/consulting team. Thank you for the opportunity to see this patient in consult today. Please do not hesitate to call me at any time with questions or concerns. Fela Mayberry MD FACP Dwain Ahuja MD - 02/16/2017 10:48 AM PDTFormatting of this note might be different from the o riginal. Consults by Dwain Lima MD at 02/16/17 1048 Author: Dwain Lima MD Service: Infectious Disease Author Type: Physician Filed: 02/16/17 1058 Date of Service: 02/16/171047 Status: Signed Slubber Frame Changer: Dwain Lima MD (Physician) Consult Orders: 1. Inpatient consult to Infectious Diseases [[id number]] ordered by Jose Allan MD at 02/16/17 0923 [facility] Service: Infectious Diseases Initial Consult Note Date of Admission: 02/15/2017 Requesting Physician: Jose Allan MD, General Medicine Reason for Consult Evaluate for infection CHIEF COMPLAINT Missed dialysis, skin lesions arms and legs HISTORY OF PRESENT ILLNESS The patient is a 51 y.o.-year-old male with significant PMH of ESRD on HD who has missed di alysis for about 1 week. States his last therapy was Saturday a week ago. He went to have his routine dialysis but one of the nurses was concerned about skin lesions he had on his arm in the area of the fistula. The patient was otherwise getting hemodialysis through this fistula up until a week ago. He reports this rash started in September of this year. Some pruritus. Denies animal bites or i nsect bites preceding the skin lesions. Denies fever or chills. He also has this lesions on his legs bilaterally. There is no dermatology available. Dr. Allan asked me to evaluate to see if this area appe ars infected. Infectious Disease (ID) consult requested for further evaluation and management. Past Medical History Diagnosis Date Abdominal pain, right upper quadrant 04/13/2012 Amphetamine and other psychostimulant dependence, continuous 04/02/2012 Anemia Anemia due to blood loss 04/30/2012 Asthma pt not using inhaler any more, no symptoms AV fistula ([facility]) lt arm 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 Chronic obstructive asthma with exacerbation ([facility]) 10/27/2013 Chronic systolic heart failure ([facility]) 09/10/2016 Diabetes mellitus type I ([facility]) Dialysis patient ([facility]) DVT (deep venous thrombosis) ([facility]) x3 GI bleed 04/30/2012 from coumadin Gout Hyperkalemia 11/09/2013 Hyperlipidemia Hyperphosphatemia 05/24/2012 Hypertension Hyponatremia 09/08/2016 Knee pain, right 07/06/2012 MSSA (methicillin susceptible Staphylococcus aureus) infection 04/11/2012 Neuromuscular disorder ([facility]) neuropathy 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[facility]) 05/01/2012 Rash and nonspecific skin eruption 04/03/2012 SOB (shortness of breath) 10/27/2013 Thyroid disease Walker as ambulation aid Past Surgical History Procedure Laterality Date AV FISTULA PLACEMENT Right 02/09/2014 Procedure: AV FISTULA; Surgeon: Oskar Meyer MD; Location: [facility] MAIN OR; Service: Vascula r; Laterality: Right; AV FISTULA PLACEMENT Left 05/06/2012 Procedure: AV FISTULA; Surgeon: Oskar Meyer MD; Location: [facility] MAIN OR; Service: Vascula r; Laterality: Left; Left arm possible right AV FISTULA REPAIR Left 07/11/2012 Procedure: AV FISTULA - GRAFT REPAIR/REVISION; Surgeon: Oskar Meyer MD; Location: [facility] IN OR; Service: Vascular; Laterality: Left; Superficialization of brachiobasilic fistula and right IJ perm cath insertion CATHETER REMOVAL Right 07/07/2012 Procedure: DIALYSIS CATHETER - REMOVAL; Surgeon: Oskar Meyer MD; Location: [facility] P ROCEDURE; Service: General; Laterality: Right; perm cath COLONOSCOPY WITH EGD N/A 05/01/2012 Procedure: COLONOSCOPY W/ EGD; Surgeon: John Singleton MD; Location: [facility] ENDOSCOPY; Ser vice: Gastroenterology; Laterality: N/A; DIALYSIS FISTULA CREATION Left 07/11/2012 Procedure: DIALYSIS CATHETER - INSERTION; Surgeon: Oskar Meyer MD; Location: [facility] MAIN OR ; Service: Vascular; Laterality: Left; removed dialysis catheter from left neck and place d new on in left chest, attempted in right neck but unable to place DIALYSIS FISTULA CREATION Left 07/07/2012 Procedure: DIALYSIS CATHETER - INSERTION; Surgeon: Oskar Meyer MD; Location: [facility] BEDSIDE PROCEDURE; Service: General; Laterality: Left; temporary dialysis catheter KNEE ARTHROSCOPY Right 07/07/2012 Procedure: KNEE - ARTHROSCOPY; Surgeon: Favio Raza MD; Location: [facility] MAIN OR; Se rvice: Orthopedics; Laterality: Right; After 1530 SUPERFICIALIZATION OF AV FISTULA Right 03/30/2014 Procedure: AV FISTULA - SUPERFICIALIZATION; Surgeon: Oskar Meyer MD; Location: [facility] MAIN OR; Service: Vascular; Laterality: [...] KIDS. CURRENTLY UNEMPLOYED, BEFOR E WORKED AT [employer] IN [place]. Quit METHAMPHETAMINES PER PATIENT after t he ARF in mar 2012. FATHER HAS COLON CANCER, HEART DISEASE, MOTHER 15 YEARS AGO. NO FH KIDNEY PROB LEMS. IMMUNIZATIONS: stated as current, but no records available ANIMAL EXPOSURES No wild animal exposures. He hunts on occasions. Family History Problem Relation Age of Onset Heart disease Mother Heart disease Father Diabetes Father Cancer Father colon cancer Current Facility-Administered Medications Medication Dose Route Frequency Provider Last Rate Last Dose acetaminophen (TYLENOL) tablet 650 mg 650 mg Oral Q6H PRN Frank Devang-Thompson, MD 650 mg at 02/16/17 0827 Or acetaminophen (TYLENOL) suppository 650 mg 650 mg Rectal Q6H PRN Frank greco MD albuterol (PROVENTIL HFA;VENTOLIN HFA) inhaler 2 puff Inhalation Q4H PRN Frank Varghese MD albuterol (PROVENTIL) nebulizer solution 2.5 mg 2.5 mg Nebulization STAT - Now Mathieu Iniguez MD allopurinol (ZYLOPRIM) tablet 100 mg 100 mg Oral Daily Frank Haji MD 10 0 mg at 02/16/17 08 amLODIPine (NORVASC) tablet 10 mg 10 mg Oral Daily Frank Haji MD 10 mg at 02/16/17 08 aspirin EC tablet 81 mg 81 mg Oral Daily Frank Haji MD 81 mg at 7 0805 bacitracin ophthalmic ointment Right Eye TID Frank Haji MD Stopped at 02/16/17 0010 budesonide-formoterol (SYMBICORT) 160-4.5 MCG/ACT inhaler 2 puff 2 puff Inhalation 2 t imes daily rFank Haji MD 2 puff at 02/16/17 0806 carvedilol (COREG) tablet 3.125 mg 3.125 mg Oral BID WC Frank Haji MD 3 .125 mg at 02/16/17 0805 cholecalciferol (VITAMIN D-3) tablet 1,000 Units 1,000 Units Oral Daily Frank Barrow MD 1,000 Units at 02/16/17 0805 dextrose 10 % infusion Intravenous Continuous PRN Frank Haji MD dextrose 50 % solution 12 mL 12 mL Intravenous PRN Frank Haji MD dextrose 50 % solution 25 mL 25 mL Intravenous PRN Frank Haji MD diphenhydrAMINE (BENADRYL) 12.5 mg/5 mL liquid 25 mg 25 mg Oral Q8H PRN Frakn Barrow MD Or diphenhydrAMINE (BENADRYL) capsule 25 mg 25 mg Oral Q8H PRN Frank Haji MD [START ON 02/17/2017] famotidine (PEPCID) IVPB 20 mg 20 mg Intravenous Daily Frank Haji MD Or [START ON 02/17/2017] famotidine (PEPCID) tablet 20 mg 20 mg Oral Daily Frank Holcomb MD fentaNYL (SUBLIMAZE) injection 12.5 mcg 12.5 mcg Intravenous Q1H PRN Frank Armendariz MD Or fentaNYL (SUBLIMAZE) injection 25 mcg 25 mcg Intravenous Q1H PRN Frank greco MD glucagon (GLUCAGEN) injection 0.5 mg 0.5 mg Intramuscular PRN Frank Haji MD glucagon (GLUCAGEN) injection 1 mg 1 mg Intramuscular PRN Frank Haji MD heparin (porcine) 5000 unit/0.5mL injection 5,000 Units 5,000 Units Subcutaneous 2 jb es per day Frank Haji MD 5,000 Units at 02/16/17 0804 hydrALAZINE (APRESOLINE) injection 10 mg 10 mg Intravenous Q4H PRN Frank granda MD insulin lispro (human) (HUMALOG) injection 0-3 Units 0-3 Units Subcutaneous Nightly Cr mal Haji MD insulin lispro (human) (HUMALOG) injection 0-6 Units 0-6 Units Subcutaneous TID AC Mich Haji MD levothyroxine (SYNTHROID) tablet 75 mcg 75 mcg Oral QAM AC Frank Haji MD 75 mcg at 02/16/17 0616 lidocaine buffered 1% injection 0.5 mL 0.5 mL Intradermal Once Frank Haji MD Stopped at 02/15/17 2350 ondansetron (ZOFRAN) tablet 4 mg 4 mg Oral Q6H PRN Frank Haji MD Or ondansetron (ZOFRAN) injection 4 mg 4 mg Intravenous Q6H PRN Case Daigle polyethylene glycol (GLYCOLAX) packet 17 g 17 g Oral Daily PRN Frank Haji MD sevelamer (RENVELA) tablet 1,600 mg 1,600 mg Oral TID WC Frank Haji MD 1,600 mg at 02/16/17 0808 sodium bicarbonate tablet 1,300 mg 1,300 mg Oral BID Frank Haji MD 1,30 0 mg at 02/16/17 0805 zolpidem (AMBIEN) tablet 5 mg 5 mg Oral Nightly PRN Frank Haji MD Allergies Allergen Reactions Azithromycin Rash Unknown Lisinopril Other (See Comments) "makes me sweat and knocked me out" Penicillins Other (See Comments) Unknown- not sure 10/08/12: Patient tolerated Ceftriaxone during previous admissions. REVIEW OF SYSTEMS A comprehensive review of systems was negative except for those in the HPI. PHYSICAL EXAM Vital Signs: BP 183/84 (BP Location: Left upper arm) | Pulse 78 | Temp 98 F (36.7 C) (Oral) | Res p 20 | Ht 1.702 m (5' 7") | Wt 77.7 kg (171 lb 4.8 oz) | SpO2 100% | BMI 26.83 kg/m Temp (24hrs), Av.8 F (36.6 C), Min:96.5 F (35.8 C), Max:98.5 F (36.9 C) General Appearance: Alert, cooperative, no distress Head: Normocephalic, without obvious abnormality, atraumatic. Lips, [...] Pulses: 2+ and symmetric all extremities Skin: Scaly verrucous-like patch of about 12x10 cm on the area of the fistula, another yoanna lar patch on the dorsal left arm, and smaller patches in both anterior shins. Lymph nodes: Cervical, supraclavicular, and axillary nodes normal Neurologic: normal without focal findings, mental status, speech normal, alert and oriented x3, LUCI and reflexes normal and symmetric Venous access: none No signs of infection. REVIEW OF LABS: All labs reviewed. CBC: Lab Results Component Value Date WBC 6.43 02/16/2017 RBC 4.17 (L) 02/16/2017 HGB 12.3 (L) 02/16/2017 HCT 36.9 (L) 02/16/2017 MCV 88.3 02/16/2017 MCH 29.4 02/16/2017 MCHC 33.2 02/16/2017 RDW 62.1 (H) 02/16/2017 PLT 193 02/16/2017 MPV 6.8 02/16/2017 DIFFTYPE AUTOMATED 02/16/2017 CMP: Lab Results Component Value Date NA 137 02/16/2017 K 4.1 02/16/2017 CL 105 02/16/2017 CO2 12 (LL) 02/16/2017 ANIONGAP 24 (H) 02/16/2017 GLUF 68 02/16/2017 BUN 117 (H) 02/16/2017 CREATININE 13.2 (H) 02/16/2017 BCR 9 02/16/2017 CA 7.5 (L) 02/16/2017 CA 6.1 (L) 04/02/2012 PROT 7.8 02/16/2017 ALB 3.8 02/16/2017 GLOB 4.0 02/16/2017 BILITOT 0.6 02/16/2017 ALP 107 02/16/2017 AST 29 02/16/2017 ALT 59 02/16/2017 EGFR 4 (L) 02/16/2017 MICROBIOLOGY Results Procedure Component Value Units Date/Time Urine culture [[id number]] Collected: 02/16/17 0745 Specimen: Urine from Urine, Clean Catch Updated: 02/16/17 1022 MRSA by PCR [[id number]] (Abnormal) Collected: 02/15/17 2333 Specimen: Nasopharyngeal from Nares(Nose) Updated: 02/16/17 0050 SOURCE NARES(NOSE) MRSA PCR POSITIVE for MRSA by PCR (A) Blood culture, set 2 [[id number]] Collected: 02/15/172023 Specimen: Blood from Blood Line Draw Updated: 02/15/172144 Blood Culture Set 1 [[id number]] Collected: 02/15/172017 Specimen: Blood from Blood, peripheral draw Updated: 02/15/172143 IMAGING No images for review PROBLEM LIST Principal Problem: Hyperkalemia Active Problems: Rash Diabetes mellitus with ESRD (end-stage renal disease) ([facility]) ESRD (end stage renal disease) on dialysis ([facility]) ASSESSMENT AND RECOMMENDATIONS The patient is a 51 y.o.-year-old male with the following problems 1. Chronic skin lesions: Likely non-infectious dermatosis. Do not appear to have superimposed active bacterial infection. Consider biopsy while inpatient for definite diagnosis. 2. MRSA colonization: Contact precautions Will sign off. Discussed with Dr. Allan Thank you for this consultation. Dwain Lima MD 02/16/2017 10:49 AM documen gela in this encounter ED Notes Conversion Transaction, Provider Unknown - 02/15/2017 8:32 PM PDTFormatting of this note m ight be different from the original. ED Notes by JAZIEL Christy at 02/15/172031 Author: JAZIEL Christy Service: (none) Author Type: Analytical Chemistry Teacher Filed: 02/15/172031 Date of Service: 02/15/172031 Status: Signed Slubber Frame Changer: JAZIEL Christy (Analytical Chemistry Teacher) IV insertion attempt done once on the L hand and once on the L wrist. JAZIEL Christy 02/15/172031 rabtr Jay clark MD - 02/15/2017 8:03 PM PDT ED Provider Notes by Jay Gtz MD at 02/15/172002 Author: Jay Gtz MD Service: -Emergency Author Type: Physician Filed: 02/16/17 0057 Date of Service: 02/15/172002 Status: Addendum Slubber Frame Changer: Jay Gtz MD (Physician) Related Notes: Original Note by Jay Gtz MD (Physician) filed at 02/16/17 0029 Procedure Orders: 1. Critical Care [[id number]] ordered by Jay Gtz MD at 02/16/17 0027 2. General Procedure documentation [[id number]] ordered by Jay Gtz MD at 02/15/172029 [facility] Department of Emergency Medicine History of Present Illness Patient Identification Carol Potter is a 51 y.o. male. Patient information was obtained from patient and spouse/partner. History/Exam limitations: none. Patient presented to the Emergency Department by: Car Chief Complaint Chief Complaint Patient presents with Vascular Access Problem states it is infected, "I havn't had dialysis since Saturday" 8:18 PM The patient presents to ED with complaints of vascular access problem Location: Generalized Quality: "site is infected" Severity: Moderate Context: Patient undergoes dialysis. Patient has fistula in right arm. Last dialysis was be fore 7 days ago. Patient went to dialysis last Saturday and was told the site was infected and dialysis could not be performed. Patient was seen at [facility] in [place] and was jc d symptoms did not warrant transfer to [facility] until today. Timin week ago Duration: Constant Modifying factors: None The patient also complains of decreased urinary output (1/day in morning), skin discolorati on, right eye drainage (no pain or decreased vision), skin complaint (began 2 months ago, ri ght upper arm, right shoulder, left forearm) Patient denies any other symptoms at this time Nephrology: Dr. Timmons PCP: ANDRY LOFTON Past Medical History Diagnosis Date Abdominal pain, [...] AV FISTULA; Surgeon: Oskar Meyer MD; Location: [facility] MAIN OR; Service: Vascula r; Laterality: Right; AV FISTULA PLACEMENT Left 05/06/2012 Procedure: AV FISTULA; Surgeon: Oskar Meyer MD; Location: [facility] MAIN OR; Service: Vascula r; Laterality: Left; Left arm possible right AV FISTULA REPAIR Left 07/11/2012 Procedure: AV FISTULA - GRAFT REPAIR/REVISION; Surgeon: Oskar Meyer MD; Location: [facility] IN OR; Service: Vascular; Laterality: Left; Superficialization of brachiobasilic fistula and right IJ perm cath insertion CATHETER REMOVAL Right 07/07/2012 Procedure: DIALYSIS CATHETER - REMOVAL; Surgeon: Oskar Meyer MD; Location: [facility] BEDSIDE P ROCEDURE; Service: General; Laterality: Right; perm cath COLONOSCOPY WITH EGD N/A 05/01/2012 Procedure: COLONOSCOPY W/ EGD; Surgeon: John Singleton MD; Location: [facility] ENDOSCOPY; Ser vice: Gastroenterology; Laterality: N/A; DIALYSIS FISTULA CREATION Left 07/11/2012 Procedure: DIALYSIS CATHETER - INSERTION; Surgeon: Oskar Meyer MD; Location: [facility] MAIN OR ; Service: Vascular; Laterality: Left; removed dialysis catheter from left neck and place d new on in left chest, attempted in right neck but unable to place DIALYSIS FISTULA CREATION Left 07/07/2012 Procedure: DIALYSIS CATHETER - INSERTION; Surgeon: Oskar Meyer MD; Location: [facility] BEDSIDE PROCEDURE; Service: General; Laterality: Left; temporary dialysis catheter KNEE ARTHROSCOPY Right 07/07/2012 Procedure: KNEE - ARTHROSCOPY; Surgeon: Favio Raza MD; Location: [facility] MAIN OR; Se rvice: Orthopedics; Laterality: Right; After 1530 SUPERFICIALIZATION OF AV FISTULA Right 03/30/2014 Procedure: AV FISTULA - SUPERFICIALIZATION; Surgeon: Oskar Meyer MD; Location: [facility] MAIN OR; Service: Vascular; Laterality: [...] mg by mouth daily. Yes Historical Provider aspirin 81 MG tablet Take 81 mg by mouth daily. Yes Historical Provider b complex-vitamin c-folic acid (NEPHRO-THU) 0.8 MG TABS tablet Take 1 tablet by mouth yelena y. 01/24/17 Yes Juan Timmons MD carvedilol (COREG) 3.125 MG tablet Take 3.125 mg by mouth 2 (two) times daily with meals. Yes Historical Provider Cholecalciferol 2000 UNITS TABS Take 1 tablet by mouth daily. Yes Historical Provider levothyroxine (SYNTHROID) 75 MCG tablet Take 75 mcg by mouth every morning before breakfast . Indications: Underactive Thyroid Yes CLARENCE Earl ondansetron (ZOFRAN-ODT) 8 MG disintegrating tablet 10/03/16 Yes Historical Provider sevelamer (RENVELA) 800 MG tablet take 3 tablets by mouth three times a day WITH MEALS AND 1 TABLET WITH SNACKS 01/24/17 Yes Juan Timmons MD sodium bicarbonate 650 [...] last night 10/28/13 08/27/16 Karri Huff MD budesonide-formoterol (SYMBICORT) 160-4.5 MCG/ACT inhaler Inhale 2 puffs into the lungs 2 ( two) times daily. 04/30/16 05/30/16 Khanh Rangel MD fluticasone-salmeterol (ADVAIR DISKUS) 250-50 MCG/DOSE Inhale 1 puff into the lungs 2 (two) times daily. 10/28/13 Karri Huff MD HYDROcodone-acetaminophen (NORCO) 5-325 MG per tablet 10/03/16 Historical Provider montelukast (SINGULAIR) 10 MG tablet Take 1 tablet by mouth nightly. 10/28/13 10/28/14 Karri Huff MD Allergies Allergen Reactions Azithromycin Rash Unknown Lisinopril [...] KIDS. CURRENTLY UNEMPLOYED, BEFOR E WORKED AT [employer] IN [place]. Quit METHAMPHETAMINES PER PATIENT after t he ARF in mar 2012. FATHER HAS COLON CANCER, HEART DISEASE, MOTHER 15 YEARS AGO. NO FH KIDNEY PROB LEMS. Family History Problem Relation Age of Onset Heart disease Mother Heart disease Father Diabetes Father Cancer Father colon cancer Review of Systems Constitutional: Positive for vascular access problem Eyes: Positive for discharge. Genitourinary: Positive for decreased urinary output Skin: Positive for rash. Positive for skin discoloration Physical Exam Vitals: 02/15/17 1908 02/15/17 2159 02/15/17 2316 02/15/17 2325 BP: 197/89 (!) 200/94 BP Location: Left upper arm Pulse: 88 78 88 85 Resp: 16 18 20 20 Temp: 96.5 F (35.8 C) TempSrc: Oral Oral SpO2: 98% 98% 97% 99% Weight: 78.4 kg (172 lb 13.5 oz) 77.7 kg (171 lb 4.8 oz) Height: 1.702 m (5' 7") Vital sign interpretation: Hypertensive, otherwise WNL Pulse Oximetry interpretation: WNL General: Alert, no active distress Eyes: R sclera injected, corneal capacity, some debris on cornea (appears like corneal ulc er), tearing Head: NCAT ENT: Ears normal Nose normal Neck: Normal inspection, Supple, FROM without pain, Cardiovascular: Extremity perfusion appears normal Respiratory: Decreased breath sounds Abdomen: Nondistended, Soft, nontender, No pulsatile abd masses, No guarding or rebound Back: Normal inspection, normal movement. Skin: Plaque-like psoriasis on right upper arm, left forearm with bruit, weeping Extremities: No deformities, Neuro: Alert, oriented, cranial nerves grossly intact. No gross motor deficits, Sensation intact/symmetrical in all Ext., Chest, Abd. Psych: Mood normal Lymph: No visible adenopathy Medical Decision Making and Emergency Department Course ED Department Course My DDx includes, but is not limited to: see below. The following medications were given during the course of treatment in the Emergency Depart ment: Medications hydrALAZINE (APRESOLINE) injection 10 mg (not administered) albuterol (PROVENTIL HFA;VENTOLIN HFA) inhaler (not administered) allopurinol (ZYLOPRIM) tablet 100 mg (not administered) amLODIPine (NORVASC) tablet 10 mg (not administered) aspirin EC tablet 81 mg (not administered) budesonide-formoterol (SYMBICORT) 160-4.5 MCG/ACT inhaler 2 puff (not administered) carvedilol (COREG) tablet 3.125 mg (not administered) cholecalciferol (VITAMIN D-3) tablet 1,000 Units (not administered) levothyroxine (SYNTHROID) tablet 75 mcg (not administered) sevelamer (RENVELA) tablet 1,600 mg (not administered) sodium bicarbonate tablet 1,300 mg (not administered) acetaminophen (TYLENOL) tablet 650 mg (not administered) Or acetaminophen (TYLENOL) suppository 650 mg (not administered) ondansetron (ZOFRAN) tablet 4 mg (not administered) Or ondansetron (ZOFRAN) injection 4 mg (not administered) zolpidem (AMBIEN) tablet 5 mg (not administered) polyethylene glycol (GLYCOLAX) packet 17 g (not administered) heparin (porcine) 5000 unit/0.5mL injection 5,000 Units (not administered) lidocaine buffered 1% injection 0.5 mL (not administered) fentaNYL (SUBLIMAZE) injection 12.5 mcg (not administered) Or fentaNYL (SUBLIMAZE) injection 25 mcg (not administered) famotidine (PEPCID) tablet 20 mg (not administered) Or famotidine (PEPCID) IVPB 20 mg (not administered) diphenhydrAMINE (BENADRYL) 12.5 mg/5 mL liquid 25 mg (not administered) Or diphenhydrAMINE (BENADRYL) capsule 25 mg (not administered) dextrose 10 % infusion (not administered) dextrose 50 % solution 12 mL (not administered) glucagon (GLUCAGEN) injection 0.5 mg (not administered) dextrose 50 % solution 25 mL (not administered) glucagon (GLUCAGEN) injection 1 mg (not administered) insulin lispro (human) (HUMALOG) injection 0-6 Units (not administered) insulin lispro (human) (HUMALOG) injection 0-3 Units (not administered) albuterol (PROVENTIL) nebulizer solution 2.5 mg (not administered) bacitracin ophthalmic ointment (not administered) sodium bicarbonate 8.4 % injection 100 mEq (100 mEq Intravenous Given 02/15/17 7701) sodium polystyrene sulfonate (KAYEXALATE) 15 GM/60ML suspension 30 g (not administered) MDM: Pleasant 51 y.o. male Patient presents here to emergency department missed dialysis for the past 1 week Unable to obtain IV access after multiple nursing attempts. 8:25 PM External jugular performed. Patient tolerated with no complications. 9:06 PM BNP elevated at 253, lactic acid is WNL at 0.5, and ammonia is WNL at 30. 9:08 PM Call from lab. Patient has critically low CO2. 9:37 PM Discussed patient with Dr. Siddiqi, hospitalist, who will come down to evaluate pat ient. Will place call to nephrology. Spoke with Dr. Stiles, recommends that we obtain a venous pH, give 2 A of sodium bicarbonate , if the patient's pH is less than 7.25 to: Back. 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 As suggested by the hospitalis t. 11:07 PM , venous pH 7.24, I discussed case with Dr. Stiles bridal gown fitter, will plan to see him the patient in the [facility], recommends to stick with plan of giving the 2 A of bicarbonate. We placed a call to speak with the patient's paratransit operator Dr. Roland Milner, he does not johnson ve a call service, the voicemail recommended we contact the on-call paratransit operator at the ospital, we have called both [facility] in [place], there do not have any contact informati on for him I will place a call to Dr. Quiroz ophthalmology. I spoke with Dr. Quiroz, indicates reassuring patient does not have any visual change, does n ot have any eye pain, does not fit particularly well with corneal ulcer He recommended bacitracin ointment tid to the involved eye, up on discharge patient to be s een in his office same day, alternative would be for patient to see his paratransit operator for immediate follow-up. I discussed this with the hospitalist Dr. Siddiqi, who placed the order for the antibiotic ointment Records Reviewed Old medical records. Nursing notes. Previous [facility] ED visits for unrelated complaints. (Using the electronic record system of [facility]) Laboratory Evaluation Results Procedure Component Value Ref Range Date/Time pH, venous [[id number]] (Abnormal) Collected: 02/15/172249 Order Status: Completed Specimen: Blood Updated: 02/15/172306 pH 7.208 (L) 7.300 - 7.450 POC venous blood gas [[id number]] (Abnormal) Collected: 02/15/172241 Order Status: Completed Updated: 02/15/172246 POC VENOUS PH 7.243 (L) 7.310 - 7.410 POC VENOUS PCO2 28 (L) 41 - 51 mmHG POC VENOUS PO2 49 (H) 30 - 40 mmHG POC VENOUS HCO3 12 (L) 23 - 28 mmol/L POC TCO2 13 (L) 24 - 29 mEq/L POC BASE DEFICIT 15 (H) 0.0 - 2.0 mmol/L POC VENOUS SO2 79.0 60 - 85 % Blood culture, set 2 [[id number]] Collected: 02/15/172023 Order Status: Sent Specimen: Blood from Blood Line Draw Updated: 02/15/172144 Blood Culture Set 1 [[id number]] Collected: 02/15/172017 Order Status: Sent Specimen: Blood from Blood, peripheral draw Updated: 02/15/172143 Cardiac Panel [[id number]] (Abnormal) Collected: 02/15/172017 Order Status: Completed Updated: 02/15/172106 WBC 7.95 3.80 - 11.00 K/uL RBC [...] ng/mL CK-MB Index 5.5 Septic Lactic Acid [[id number]] Collected: 02/15/172023 Order Status: Completed Updated: 02/15/172105 LACTIC ACID 0.5 0.4 - 2.0 mmol/L BNP [[id number]] (Abnormal) Collected: 02/15/172017 Order Status: Completed Specimen: Blood Updated: 02/15/172101 BRAIN NATRIURETIC PEPTIDE 253 (H) 0 - 100 pg/mL Ammonia level [[id number]] Collected: 02/15/172017 Order Status: Completed Specimen: Blood Updated: 02/15/172058 AMMONIA 30 <33 umol/L I personally reviewed the lab results and they have been posted to the chart at the time of the patients disposition. Radiology and EKG Evaluation EKG done at 8:32 PM, rate 79, sinus rhythm, first-degree AV block, EKG interpreted by candido kim the time of clinical encounter Imaging Results XR chest AP portable (Final result) Result time 02/15/17 21:40:24 Final result by Adeel Denise DO (02/15/17 21:40:24) Impression: 1. No acute process. Narrative: CAROL Fuller ROMY XR CHEST 1 VIEW HISTORY: 51 years. Male. Shortness of breath. TECHNIQUE: Single portable anterior view of the chest was obtained. COMPARISON: 10/07/2016 FINDINGS: Vascular stent again visualized right lung apex that. The heart is normal in size. No pulmo nary vascular congestion. No pneumothorax. No focal airspace disease or pleural effusion. ED Diagnoses Final diagnoses ESRD (end stage renal disease) on dialysis (HCC) Corneal ulcer, right possible Acidemia Hyperkalemia Rash Disposition: ED Disposition ED Disposition Condition Comment Admit/Observation Bed request special needs: Dialysis Diagnosis?: Acidemia, missed dialysis, electrolyte abnormalities Follow-up Information None Discharge Medications: Current Discharge Medication List This document has been prepared with a voice recognition system. The possibility of "sound alike" repairer maintenance building errors, and additions or deletions may occur. If there is any questio n, with respect to clarity of the message being conveyed, please contact me directly for cla rification. Any physical exam findings mentioned in the MDM take precedence over findings listed in phy sical exam section. Jay Gtz MD, MPH Procedures Additional Documentation External jugular Date/Time: 02/15/2017 8:25 PM Performed by: JAY GTZ Authorized by: JAY GTZ Consent: Consent obtained: Verbal Consent given by: Patient Risks discussed: Infection and pain Alternatives discussed: Observation and no treatment [place] protocol: Procedure explained and questions answered to patient or proxy's satisfaction: yes Relevant documents present and verified: yes Required blood products, implants, devices, and special equipment available: yes Site/side marked: yes Patient identity confirmed: Verbally with patient and arm band Pre-procedure details: Skin preparation: ChloraPrep Preparation: Patient was prepped and draped in the usual sterile fashion Post-procedure details: Patient tolerance of procedure: Tolerated well, no immediate complications Comments: 18 gauge left external jugular. Trendelenburg. Critical Care Performed by: JAY GTZ Authorized by: FRANK HAJI Critical care provider statement: Critical care time (minutes): 45 Critical care time was exclusive of: Separately billable procedures and treating other p atients Critical care was necessary to treat or prevent imminent or life-threatening deterioratio n of the following conditions: Metabolic crisis Critical care was time spent personally by me on the following activities: Development o f treatment plan with patient or surrogate, discussions with consultants, evaluation of mahamed ent's response to treatment, examination of patient, obtaining history from patient or surro gate, ordering and performing treatments and interventions, ordering and review of laborator y studies, re-evaluation of patient's condition and review of old charts Attending Provider Note: IJay MD personally performed the services describe d in this documentation, as scribed by Chriss Phan in my presence, and it is both accura te and complete. Chart Reviewed and Completed: 02/16/2017 12:26 AM Scribe: Cande Torres, scribing for and in the presence of Jay Gtz MD. Signed by: Cande Bautista 02/16/2017 12:26 AM Jay Gtz MD 02/16/17 0028 Jay Gtz MD 02/16/17 0029 Jay Gtz MD 02/16/17 0057 onversion Transac tion, Provider Unknown - 02/15/2017 7:15 PM PDTFormatting of this note might be different f rom the original. ED Notes by JAZIEL Christy at 02/15/171914 Author: JAZIEL Christy Service: (none) Author Type: Analytical Chemistry Teacher Filed: 02/15/171915 Date of Service: 02/15/171914 Status: Signed Slubber Frame Changer: JAZIEL Christy (Analytical Chemistry Teacher) Pt states that he needs to get dialysis and get his fistula looked at. He states that his f istula is infected and has been since September. Pt also complains of fever and weakness. JAZIEL Christy 02/15/171915 docume nted in this encounter Miscellaneous Notes Op Note - Jimenez Garnica MD - 02/18/2017 1:53 PM PDT Brief Op Note by Jimenez Garnica MD PhD at 02/18/17 4453 Author: Jimenez Garnica MD PhD Service: Interventional Radiology Author Type: Physician Filed: 02/18/17 1408 Date of Service: 02/18/17 1356 Status: Signed Slubber Frame Changer: Jimenez Garnica MD PhD (Physician) Interventional Radiology Post Procedure Note Patient Name: Carol Potter Date of : 1965 Procedure(s): Tunneled dialysis catheter, central venogram, right brachiocephalic/subclavia n angioplasty Pre OP Diagnosis: ESRD Post OP Diagnosis: same Interventional Radiologist: Jimenez Garnica MD Anesthesia Type: IV Conscious Sedation with Fentanyl and Versed. Findings: Left internal jugular patent and accessed with ultrasound. Microwire repeatedly w ent into stented right brachicephalic vein. Central venogram demonstrated stenosis of brachi ocephalic SVC confluence but was patent. Catheter was advanced into right brachiocephalic ve in and there was near occlusive instent stenosis. Wire was advanced without going through st ent struts into IVC. Second was placed into right brachiocephalic and 12 mm angioplasty perf ormed but it was through strut. Decision to pursue right brachiocephalic/subclavian interven tion at later date. I placed 23 cm tip to cuff left IJ palindrome with tip at the cavoatrial junction. Specimens: none EBL: none Complications: None PLAN: Catheter tip position confirmed; ready for immediate use. Will plan right upper extremity venogram in the near future. A full report will follow in the imaging section. Jimenez Garnica MD, PhD Interventional Radiologist and Vascular Medicine Specialist lan of Care - Jose Yepez MD - 02/16/2017 5:27 PM PDTFormatting of this note might be different f rom the original. Plan of Care by Jose Allan MD at 02/16/171726 Author: Jose Allan MD Service: Hospitalist Author Type: Physician Filed: 02/16/171728 Date of Service: 02/16/171726 Status: Signed Slubber Frame Changer: Jose Allan MD (Physician) Initial H&P reviewed, patient seen and examined. Briefly, patient is a 51 year old male with past medical history of Hypertension, HLD, ESRD on HD MWF, DM Type 2, Hypothyroidism and Asthma who was admitted due to hyperkalemia and mi ssed hemodialysis for more than a week. Apparently he went for his HD last week but he was f ound to have severe skin lesions involving the fistula site which was concerning for infecti on. He could not follow up with Dr Timmons and eventually went to [facility] and he was then transferred to [facility] for management. His labs showed stable CBC but BMP revealed K o f 5.9 and a Creatinine of 13. Nephrology services was consulted and Dr. Mayberry planned to [facility] HD via IJ catheter followed by a tunneled catheter placement till further diagnosis and treatment of skin lesions were arranged. PLAN: Dr. Mayberry is arranging for IJ catheter placement to initial HD. Start IV Solumedrol 80 mg TID Will try to obtain Dermatology consultation if available otherwise make out patient appoint ment. documented in th is encounter Plan of [...] | ECG 12 LEAD | Routin | 02/16/2017 | | Results for this | | | e | 5:21 AM | | procedure are in the [...] | ECG 12 LEAD | Routin | 02/15/2017 | | Results for this | | | e | 8:32 PM | | procedure are in the [...] | | Fingerstick | performed at [facility];[address] | | LAB | | | | [address];[place] | | | | | | [address] | | | | + + + [...] | | Fingerstick | performed at [facility];[address] | | LAB | | | | [address];[place] | | | | | | [address] | | | | + + + [...] | | Fingerstick | performed at [facility];[address] | | LAB | | | | [address];[place], [place] | | | | | | [address] | | | | + + + [...] | | | | | | at [facility], [address] | | | | | | [facility], | | | | | | [place] [address] | | | | + + + [...] | | POC | performed at [facility];[address] | | LAB | | | | [address];[place], [place] | | | | | | [address] | | | | + + + [...] | | Fingerstick | performed at [facility];[address] | | LAB | | | | [address];[place], [place] | | | | | | [address] | | | | + + + [...] | | Fingerstick | performed at [facility];[address] | | LAB | | | | [address];[place] | | | | | | [address] | | | | + + + [...] | | Fingerstick | performed at [facility];[address] | | LAB | | | | [address];[place] | | | | | | [address] | | | | + + + [...] Right brachiocephalic/subclavian venous | | | angioplasty FARM PLANNER: Jimenez Garnica MD, PhD, RPVI | | [...] the SVC. An 8 | | | American sheath was placed and a central venogram was performed which | | | demonstrated a brachiocephalicA/SVC confluence focal stenosis. Using | | | multiple obliquities, the catheter and wire were successfully passed | | | beyond the stent into the inferior vena cava. Patient was heparinized | | | An 10 American sheath was placed. A wire and catheter [...] and a small incision was made. A 14.5-American Palindrome 23 | | | cm tip [...] venogram5. | | Right brachiocephalic/subclavian venous angioplasty FARM PLANNER: Jimenez Garnica MD, | | PhD, [facility] PROCEDURE: Informed consent was obtained from the [...] not pass into the SVC. An 8 American sheath was | | placed and a central venogram was performed which demonstrated a brachiocephalicA/SVC | | confluence focal stenosis. Using multiple obliquities, the catheter and wire were | | successfully passed beyond the stent into the inferior vena cava. Patient was | | heparinized An 10 American sheath was placed. A wire and catheter [...] and a small incision was made. A 14.5-American Palindrome 23 cm tip to cuff | [...] Right brachiocephalic/subclavian venous | | | angioplasty FARM PLANNER: Jimenez Garnica MD, PhD, RPVI | | [...] the SVC. An 8 | | | American sheath was placed and a central venogram was performed which | | | demonstrated a brachiocephalicA/SVC confluence focal stenosis. Using | | | multiple obliquities, the catheter and wire were successfully passed | | | beyond the stent into the inferior vena cava. Patient was heparinized | | | An 10 American sheath was placed. A wire and catheter [...] and a small incision was made. A 14.5-American Palindrome 23 | | | cm tip [...] venogram5. | | Right brachiocephalic/subclavian venous angioplasty FARM PLANNER: Jimenez Garnica MD, | | PhD, RPVI [...] not pass into the SVC. An 8 American sheath was | | placed and a central venogram was performed which demonstrated a brachiocephalicA/SVC | | confluence focal stenosis. Using multiple obliquities, the catheter and wire were | | successfully passed beyond the stent into the inferior vena cava. Patient was | | heparinized An 10 American sheath was placed. A wire and catheter [...] and a small incision was made. A 14.5-American Palindrome 23 cm tip to cuff | [...] | | Fingerstick | performed at [facility];[address] | | LAB | | | | [address];[place] | | | | | | [address] | | | | + + + [...] | | | | | | at [facility], [address] | | | | | | [address], | | | | | | [place] [address] | | | | + + + [...] | | Fingerstick | performed at [facility];[address] | | LAB | | | | [address];[place], [place] | | | | | | [address] | | | | + + + [...] | | Fingerstick | performed at [facility];[address] | | LAB | | | | [address];[place], [place] | | | | | | [address] | | | | + + + [...] | | Fingerstick | performed at [facility];[address] | | LAB | | | | [address];[place] | | | | | | [address] [...] | | Fingerstick | performed at [facility];[address] | | LAB | | | | [address];[place] | | | | | | [address] | | | | + + + [...] EXTERNAL | | | | performed at [facility], [address] | | LAB | | | | [address], | | | | | | [place] [address] | | | | + + + [...] +---- + + + | Non- | 4.41 | 4.2 0 - 5.70 | EXTERNAL | | | Red Blood | | M/u L | LAB | | | Cells | | | | | | Counted | | | | | + + +---- + + + | Hemoglobin | 12.6 (L) | 13. 2 - [...] | | | | | | at [facility], [address] | | | | | | [facility], | | | | | | [place] [address] | | | | | |Testing performed at [facility], [address] [place] [address] | | | | | | | [...] EXTERNAL | | | | performed at [facility], [address] | | LAB | | | | [place] [address], | | | | | | [place] [address] | | | | + + + [...] + + | Hemoglobin | 5.5Comment: The Guyanese | 4.0 - 6.0 % | EXTERNAL [...] | | | | | performed at [facility], [address] | | | | | | [facility], | | | | | | [place] [address] | | | | + + + [...] | | | | | | at [facility], [address] | | | | | | [place] [address], | | | | | | [place] [address] | | | | + + + [...] | | Fingerstick | performed at [facility] | | LAB | | | | [address];[place] | | | | | | [address] | | | | + + + [...] | | Fingerstick | performed at [facility];[address] | | LAB | | | | [address];[place], [place] | | | | | | [address] | | | | + + + [...] | | | | | at [facility];[address] | | | | | | [address];[place] [address] | | | | + + + [...] | | | ANTIBODY | [facility], [address] | | | | | | [place] | | | | | | [address] | | | | + + + [...] | | | | | | at [facility], [address] | | | | | | [facility], | | | | | | [place] [address] | | | | + + + [...] | | Fingerstick | performed at [facility];[address] | | LAB | | | | [address];[place] | | | | | | [address] | | | | + + + [...] | | LAB | | | | [facility], [address] | | | | | | [place] | | | | | | [address] | | | | + + + [...] + + + + | Clarity, | CLEAR | | EXTERNAL | | | Urine | | | LAB | | + + + + + + | Specific | 1.012 | 1.002 - 1.030 | EXTERNAL | | | [place], | | | LAB | | | [...] | | | Urine | performed at [facility], [address] | | LAB | | | | [address] [address], | | | | | | [place] [address] | | | | + + + [...] | | Fingerstick | performed at [facility];[address] | | LAB | | | | [address];[place], [place] | | | | | | [address] [...] + +---------+ + + ECG 12 lead (02/16/2017 5:21 AM PDT) + + + + + + | Component | Value | Ref Range | Performed | Pathologist | | | | | At | Signature | + + + + + + | DIAGNOSIS: | Sinus rhythm with 1st | | EXTERNAL | | | | degree A-V blockLow | | LAB | | | | voltage limb leads | | | | | | onlyNonspecific ST | | | | | | and/or T wave | | | | | | abnormalitiesProlonged | | | | | | QTAbnormal ECGWhen | | | | | | compared with ECG of | | | | | | 15-FEB-2017 20:32,No | | | | | | significant change was | | | | | | foundConfirmed by | | | | | | ANASTACIA NAYLOR ([id number]) on | | | | | | 02/16/2017 10:09:05 AM | | | | + + + + + + + + | Specimen | + + | | + + + + + | Narrative | Performed At | + + + | Historically converted procedure from [facility] Epic environment | EXTERNAL LAB | [...] + + + + | Non- | 4.17 (L) | 4.20 - 5.70 | EXTERNAL | | | Red Blood | | M/uL | LAB | | | Cells | | | | | | Counted | | | | | + + + + + + | Hemoglobin | 12.3 (L) | 13.2 - 17.0 [...] LAB | | | | performed at [facility], [address] | | | | | | [place], | | | | | | [place] [address] | | | | | | | [...] EXTERNAL | | | | performed at [facility], [address] | | LAB | | | | [place] [address], | | | | | | [place] [address] | | | | + + + [...] | | | | | [place] [address] | | | | + + + [...] | | | Direct | performed at [facility], [address] | | LAB | | | | [place], | | | | | | [place] [address] | | | | + + + [...] LAB | | | | @ [phone] [place] | | | | | |LUIS CARLOS [address] 6RP @ [phone] [place] | | | | | | | [...] | | | | | | at [facility], [address] | | | | | | [place] [address], | | | | | | [place] [address] | | | | + + + [...] | | | | performed at [facility];[address] | mmol/L | LAB | | | | [address];[place] | | | | | | [address] | | | | + + + [...] LAB | | | | @ [phone] [place] | | | | | |MARC Burgess PCC @ [phone] [place] | | | | | | | [...] | | | | | [place] [address] | | | | + + + [...] | | | PCRAbnormal Testing performed at [facility];[address] [facility];[place] [address] | | + + + + +---------+ [...] | | Fingerstick | performed at [facility];[address] | | LAB | | | | [address];[place] | | | | | | [address] | | | | + + + [...] | LAB | | | | [facility];[address] [facility] [[email or web address] | | | | | | [address];[place] [address] | | | | + + + [...] | | | | | + + ECG 12 lead (02/15/2017 8:32 PM PDT) + + + + + + | Component | Value | Ref Range | Performed | Pathologist | | | | | At | Signature | + + + + + + | DIAGNOSIS: | Sinus rhythm with 1st | | EXTERNAL | | | | degree A-V | | LAB | | | | blockProlonged | | | | | | QTAbnormal ECGWhen | | | | | | compared with ECG of | | | | | | 09-OCT-2016 | | | | | | 11:31,Questionable | | | | | | change in QRS | | | | | | axisNonspecific T wave | | | | | | abnormality no longer | | | | | | evident in Inferior | | | | | | leadsNonspecific T wave | | | | | | abnormality no longer | | | | | | evident in Anterolateral | | | | | | leadsThis [...] (500), | | | | | | editorial writer ANA M NAVARRO | | | | | | (125) on 02/16/2017 | | | | | | 5:51:20 AM | | | | + + [...] +---------+ + + Culture, Blood, 2nd Specimen (02/15/2017 [...] | | | | performed at [facility];[address] | mmol/L | LAB | | | | [address];[place], [place] | | | | | | [address] | | | | + + + [...] + + + -+ | Non- | 4.53 | 4.20 - 5.70 | EXTERNAL | | | Red Blood | | M/uL | LAB | | | Cells | | | | | | Counted | | | | | + + + + + -+ | Hemoglobin | 13.3 | 13.2 - 17.0 | [...] EXTERNAL | | | | TO DR GTZ AT 2105 | | LAB | | [...] | | | | performed at [facility] | | LAB | | | | [facility];[place], [place] | | | | | | [address] | | | | + + + [...] | | | | performed at [facility];[address] | | LAB | | | | [address];[place], [place] | | | | | | [address] | | | | + + + [...]
--- OUTSIDE RECORDS SUMMARY | ~2020-03-11 | XMS | Encounter Summary ---
Demographics + + + | Address | [address] | | | [place] [address] | + + + | Home Phone | | + + + | Preferred Language | Unknown | + + + | Marital Status | Unknown | + + + | [employer] Affiliation | [id number] | + + + [...] Team Providers + +------+ + | [employer] Manager Name | Role | Phone | + +------+ + PCP | Unavailable | + +------+ + Encounter Details +--------+ + + + + | Date | Type | Department | Care Team | Description | +--------+ + + + + | 04/02/ | Hospital | [facility] | Neli Trujillo, | Acute renal failure | | 2011 - | Encounter | [facility] | [address] | ([facility]); Acidosis; | | | | CARE [address]LO[address] | [place] [address] | Hyperphosphatemia; | | 04/15/ | [address] | [phone] | Rash and nonspecific | | 2011 | | [place], [place] | | skin eruption; | | | | [address] | | Renal failure, acute | | | | [phone] | | ([facility]); Vitamin d | | | | | | deficiency; | | | | | | Secondary | | | | | | hyperparathyroidism | | | | | | (of renal origin) | | | | | | ([facility]); Hypokalemia; | | | | | | [...] | | | | | | uncontrolled ([facility]); | | | | | | 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, | | | | | | continuous ([facility]); | | | | | | Eczema [...] disease) | | | | | | ([facility]); Hyponatremia; | | | | | | Hypoalbuminemia; | | | | | | Obesity (BMI | | | | | | 30-39.9); | | | | | | Unspecified asthma; | | | | | | Chest pain; Protein | | | | | | calorie malnutrition | | | | | | ([facility]); Anemia; | | | | | | Hyperkalemia; | | | | | | Uncontrolled | | | | | | diabetes mellitus | | | | | | ([facility]); | | | | | | Methamphetamine [...] 12:26 PM PDT Discharge Summaries by Vikram hCandra MD at 04/15/12 1226 Author: Vikram Chandra MD Service: Hospitalist Author Type: Physician Filed: 04/15/12 1233 Date of Service: 04/15/12 1226 Status: Signed Stick Feeder: Vikram Chandra MD (Physician) [facility]: Hospitalist Physician Discharge Summary Pt: Carol Potter AGE/SEX: 47 y.o. male ROOM: [facility]4451-1 PCP: Ashly Quick MD, MD : 1965 [...] also with Anemia when he was admitted [facility] to have blood transfusion, who presented by ambulance from [facility] . Was there at 04/01 at [...] pathology specimen will also be reevaluated in [place] Renal Failure -kidney biopsy shows advanced fibrotic changes with little chance of recovery. HD planned i n the [place] area He Had no CP, SOB, N/V, [...] Refills: 0 Associated Diagnoses: Hyperphosphatemia ergocalciferol (DRISDOL) 32853 UNITS capsule Take 1 capsule by mouth [...] 04/15/121210 Date of Service: 04/15/121210 Status: Signed Stick Feeder: Devaughn Flores RN (Registered Nurse) Took over care from Kristi DYE Cosmo Lang MD - 04/15/2012 11:21 AM PDTFormatting of this note might be different from the or iginal. Progress Notes by Cosmo Soria MD at 04/15/12 112 Author: Cosmo Soria MD Service: Nephrology Author Type: Physician Filed: 04/16/1202 Date of Service: 04/15/121120 Status: Signed Stick Feeder: Cosmo Soria MD (Physician) PCP is Ashly [...] Left UE PICC line in situ. CASE: [id number] PATIENT: CAROL POTTER Surgical Pathology Report PATHOLOGIC [...] with a Newman catheter in place. CASE: [id number] PATIENT: CAROL POTTER Surgical Pathology Report PATHOLOGIC [...] be set up for maintenance HD at [place] under Dr. Timmons. BP: Better controlled. However [...] back. COSMO SORIA MD 04/16/2012 Elsie Hsu S - 04/15/2012 10:51 AM PDT Progress Notes by Elsie Lerner MD at 04/15/12 1051 Author: Elsie Lerner MD Service: (none) Author Type: Physician Filed: 04/15/12 1142 Date of Service: 04/15/12 1051 Status: Signed Stick Feeder: Elsie Lerner MD (Physician) [facility]: [...] extremities. Papul ar lesions at upper extremities. E PICC at [facility]. There is a small ulcer with yel [...] RECENT OR PAST INFECTION. Testing performed at [place] [address] HSV II AB,IGG 0.35 <0.90 IV Comments: [...] II GG2 RECOMBINANT ANTIGENS. Testing performed at [place] [address] HSV, IGM 0.79 <0.91 OD RATIO Comments: <0.91 NEGATIVE: NO CLINICALLY SIGNIFICANT LEVEL OF HSV IGM ANTIBODIES DETECTED. DUE TO THE CROSS REACTIVITY BETWEEN HSV 1 AND HSV 2 IGM ANTIBODIES, THIS ASSAY CANNOT DISCRIMINATE BETWEEN THEM AND MEASURES HSV TYPE 1 AND TYPE 2 COMBINED IGM ANTIBODIES. Testing performed at [place] [address] Lab Flowsheet Order Details View Encounter Lab and Collection Details Routing Result History Specimen Collected: 04/06/12 3:45 PM Last Resulted: 04/08/12 12:12 PM Encounter View Encounter Result Information Abnormal Status: Final result (04/08/2012 12:12 PM) Provider Status: Ordered Microbiology Results (last 14 days) Procedure Component Value Units Date/Time Blood culture, 2 of 2 [[id number]] (Abnormal) Collected:04/12/12 1231 Order Status:Completed Updated:04/15/12946 Specimen Information:Blood Specimen Description BLOOD, PERIPHERAL DRAW Specimen Description Result: Testing performed at [facility];[address] [place] [address] SPECIAL REQUESTS L WRIST SPECIAL REQUESTS Result: Testing performed at [facility];[address] [place] [address] 11342 GRAM STAIN Result: GRAM POSITIVE COCCI SEEN ON GRAM STAIN FROM AEROBIC BOTTLE SMEAR RESULTS CALLED TO AND READ BACK BY: SOULEYMANE Levine IN 4RP AT 0732 ON [id number] BY CRK GRAM STAIN GRAM POSITIVE COCCI IN CLUSTERS GRAM STAIN Result: CALLED RESULTS TO BEST Tan ON 4RP AT 1140 ON 04/14/12 [facility] RESULTS REPEATED GRAM STAIN Result: Testing performed at [facility];[address] [place] [address]1161 CULTURE STAPHYLOCOCCUS AUREUS (A) CULTURE GROWTH IN TWO OF TWO BOTTLES (A) CULTURE TIME TO DETECTION: 0.71 DAYS CULTURE Result: Testing performed at [facility], [address] [place] [address] REPORT STATUS 04/15/2012 FINAL Organism STAPHYLOCOCCUS AUREUS [...] STAPHYLOCOCCUS AUREUS Blood culture, 1 of 2 [[id number]] (Abnormal) Collected:04/12/12 1200 Order Status:Completed Updated:04/15/12946 Specimen Information:Blood Specimen Description BLOOD, LINE DRAW Specimen Description Result: Testing performed at [facility];[address] [place] [address] 46580 SPECIAL REQUESTS ART SPECIAL REQUESTS Result: Testing performed at [facility];[address] [place] [address] 76082 GRAM STAIN Result: GRAM POSITIVE COCCI SEEN ON GRAM STAIN FROM AEROBIC BOTTLE SMEAR RESULTS CALLED TO AND READ BACK BY: DEIDRE Mccullough IN 4RP AT 0611 ON [id number] BY CRK GRAM STAIN Result: Testing performed at [facility];[address] [place] [address] 02239 CULTURE STAPHYLOCOCCUS AUREUS (A) CULTURE GROWTH IN ONE OF TWO BOTTLES (A) CULTURE TIME TO DETECTION: 0.65 DAYS CULTURE Result: Testing performed at [facility], [address] [place] [address] 59573 REPORT STATUS 04/15/2012 FINAL Organism STAPHYLOCOCCUS AUREUS [...] STAPHYLOCOCCUS AUREUS (TERRANCE) STAPHYLOCOCCUS AUREUS Blood culture [[id number]] (Abnormal) Collected:04/11/12216 Order Status:Completed Updated:04/15/12940 Specimen Information:Blood Specimen Description BLOOD, PERIPHERAL DRAW Specimen Description Result: Testing performed at [facility];[address] [place] [address];[place] [address] SPECIAL REQUESTS RHAND SPECIAL REQUESTS Result: Testing performed at [facility];[address] [place] [address];[place] [address] GRAM STAIN Result: GRAM POSITIVE COCCI IN CLUSTERS SEEN IN AEROBIC BOTTLE SMEAR RESULTS CALLED TO AND READ BACK BY: DAVID Díaz/PERLA 1921 JCM (A) GRAM STAIN Result: GRAM POSITIVE COCCI IN CLUSTERS SEEN ON SMEAR OF ANAEROBIC BOTTLE GRAM STAIN Result: CALLED TO PERLA/DAVID Díaz ON 04/14/12 AT 0657 BY READBACK GRAM STAIN Result: Testing performed at [facility];[address] [place] [address];[place] [address] CULTURE STAPHYLOCOCCUS AUREUS (A) CULTURE TIME TO DETECTION: 0.67 DAYS CULTURE GROWTH IN TWO OF TWO BOTTLES (A) CULTURE Result: VANCOMYCIN TERRANCE IS LESS THAN OR EQUAL TO 0.5 Mcg/mL CULTURE Result: Testing performed at [facility], [address] [place] [address] 49905 REPORT STATUS 04/15/2012 FINAL Organism STAPHYLOCOCCUS AUREUS [...] STAPHYLOCOCCUS AUREUS Blood culture, 1 of 2 [[id number]] (Abnormal) Collected:04/10/12 1532 Order Status:Completed Updated:04/15/12 0938 Specimen Information:Blood Specimen Description BLOOD, PERIPHERAL DRAW Specimen Description Result: Testing performed at [facility];[address] [place] [address] 15502 SPECIAL REQUESTS LAC SPECIAL REQUESTS Result: Testing performed at [facility];[address] [place] [address] 62370 GRAM STAIN Result: GRAM POSITIVE COCCI SEEN ON GRAM STAIN FROM AEROBIC AND ANAEROBIC BOTTLES SMEAR RESULTS CALLED TO AND READ BACK BY: LINDA Mccullough IN 4RP AT 1340 ON [id number] BY CRK GRAM STAIN Result: Testing performed at [facility];[address] [place] [address] 46592 CULTURE STAPHYLOCOCCUS AUREUS (A) CULTURE STREPTOCOCCUS ANGINOSUS (A) CULTURE TIME TO DETECTION: 0.85 DAYS CULTURE GROWTH IN TWO OF TWO BOTTLES (A) CULTURE Result: Testing performed at [facility], [address] [place] [address] 39336 REPORT STATUS 04/15/2012 FINAL Organism STAPHYLOCOCCUS AUREUS [...] STREPTOCOCCUS ANGINOSUS Fecal occult blood (in house) [[id number]] (Abnormal) Collected:04/15/12 0608 Order Status:Completed Updated:04/15/12 0636 Specimen Information:Stool Fecal Occult Blood POSITIVE (A) Comment: Testing performed at [facility];[address] [place] [address] 45821 Fecal occult blood (in house) [[id number]] (Abnormal) Collected:04/14/122049 Order Status:Completed Updated:04/14/122114 Specimen Information:Stool Fecal Occult Blood POSITIVE (A) Comment: Testing performed at [facility];[address] [place] [address] 20113 Blood culture, 2 of 2 [[id number]] Collected:04/13/12 1115 Order Status:Completed Updated:04/14/12 0655 Specimen Information:Blood Specimen Description BLOOD, PERIPHERAL DRAW Specimen Description Result: Testing performed at [facility];[address] [place] [address];[place] [address] SPECIAL REQUESTS L WRIST SPECIAL REQUESTS Result: Testing performed at [facility];[address] [place] [address];[place] [address] CULTURE NO GROWTH AT THIS TIME CULTURE Result: Testing performed at [facility];[address] [place] [address];[place] [address] REPORT STATUS PENDING Blood culture, 1 of 2 [[id number]] Collected:04/13/12 1109 Order Status:Completed Updated:04/14/12 0655 Specimen Information:Blood Specimen Description BLOOD, PERIPHERAL DRAW Specimen Description Result: Testing performed at [facility];[address] [place] [address];[place] [address] SPECIAL REQUESTS L ARM SPECIAL REQUESTS Result: Testing performed at [facility];[address] [place] [address] 61873 CULTURE NO GROWTH AT THIS TIME CULTURE Result: Testing performed at [facility];[address] [place] [address] 88341 REPORT STATUS PENDING Blood culture, 2 of 2 [[id number]] (Abnormal) Collected:04/10/12 1542 Order Status:Completed Updated:04/13/12 0732 Specimen Information:Blood Specimen Description BLOOD, PERIPHERAL DRAW Specimen Description Result: Testing performed at [facility];[address] [place] [address];[place] [address] SPECIAL REQUESTS RAC SPECIAL REQUESTS Result: Testing performed at [facility];[address] [place] [address] 23934 GRAM STAIN Result: GRAM POSITIVE COCCI IN CLUSTERS SEEN ON SMEAR FROM AEROBIC BOTTLE (A) GRAM STAIN Result: SMEAR RESULTS CALLED TO AND READ BACK BY: YAZMIN DUNCAN, 04/10/12 AT 2356 BY GRAM STAIN Result: Testing performed at [facility];[address] [place] [address] 82392 CULTURE STAPHYLOCOCCUS AUREUS (A) CULTURE GROWTH IN ONE OF TWO BOTTLES (A) CULTURE TIME TO DETECTION: 0.31 DAYS CULTURE VANCOMYCIN TERRANCE IS EQUAL TO ONE. CULTURE Result: Testing performed at [facility], [address] [place] [address] REPORT STATUS 04/13/2012 FINAL Organism STAPHYLOCOCCUS AUREUS [...] (TERRANCE) STAPHYLOCOCCUS AUREUS Culture, drain tube tip [[id number]] (Abnormal) Collected:04/10/12 1905 Order Status:Completed Updated:04/12/12 1136 Specimen Information:Other / Catheter Tip Specimen Description CATHETER TIP Specimen Description Result: Testing performed at [facility];[address] [place] [address] 78206 CULTURE >15 COLONIES STAPHYLOCOCCUS AUREUS (A) CULTURE Result: THIS S. AUREUS IS SUSCEPTIBLE TO METHICILLIN (A) CULTURE Result: Testing performed at [facility], [address] [place] [address] REPORT STATUS 04/12/2012 FINAL AFB culture and smear [[id number]] Collected:04/03/12 1415 Order Status:Completed Updated:04/11/12 1251 Specimen Information:Sputum Specimen Description SPUTUM Specimen Description Result: Testing performed at [facility];[address] [place] [address] 09203 AFB STAIN NO ACID FAST BACILLI SEEN AFB STAIN Result: Testing performed at [facility], [address] [place] [address] 06086 CULTURE NO GROWTH AT THIS TIME CULTURE Result: Testing performed at [facility], [address] [place] [address] 39757 REPORT STATUS PENDING Urine culture [[id number]] (Abnormal) Collected:04/07/12 1336 Order Status:Completed Updated:04/09/12 1356 Specimen Information:Urine Specimen Description URINE, COLLECTION NOT GIVEN Specimen Description Result: Testing performed at [facility];[address] [place] [address] 34092 CULTURE >100,000 CFU/ML STAPHYLOCOCCUS AUREUS (A) CULTURE Result: Testing performed at [facility], [address] [place] [address] 39872 REPORT STATUS 04/09/2012 FINAL Organism STAPHYLOCOCCUS AUREUS [...] STAPHYLOCOCCUS AUREUS Blood culture, 1 of 2 [[id number]] Collected:04/03/121414 Order Status:Completed Updated:04/09/12701 Specimen Information:Blood Specimen Description BLOOD, PERIPHERAL DRAW Specimen Description Result: Testing performed at [facility];[address] [place] [address] 64761 SPECIAL REQUESTS LAC SPECIAL REQUESTS Result: Testing performed at [facility];[address] [place] [address] 22868 CULTURE NO GROWTH IN 5 DAYS. CULTURE Result: Testing performed at [facility];[address] [place] [address] 11619 REPORT STATUS 04/09/2012 FINAL Blood culture, 2 of 2 [[id number]] Collected:04/03/121414 Order Status:Completed Updated:04/09/12701 Specimen Information:Blood Specimen Description BLOOD, PERIPHERAL DRAW Specimen Description Result: Testing performed at [facility];[address] [place] [address] 67424 SPECIAL REQUESTS RAC SPECIAL REQUESTS Result: Testing performed at [facility];[address] [place] [address] 59103 CULTURE NO GROWTH IN 5 DAYS. CULTURE Result: Testing performed at [facility];[address] [place] [address] 85121 REPORT STATUS 04/09/2012 FINAL Urine culture [[id number]] (Abnormal) Collected:04/06/12 0022 Order Status:Completed Updated:04/08/121504 Specimen Description URINE, COLLECTION NOT GIVEN Specimen Description Result: Testing performed at [facility];[address] [place] [address] 65352 CULTURE >100,000 CFU/ML STAPHYLOCOCCUS AUREUS (A) CULTURE Result: Testing performed at [facility], [address] [place] [address] REPORT STATUS 04/08/2012 FINAL Organism STAPHYLOCOCCUS AUREUS [...] (TERRANCE) >100,000 CFU/ML STAPHYLOCOCCUS AUREUS Urine Culture [[id number]] Collected:04/02/12228 Order Status:Completed Updated:04/04/121954 Specimen Information:Urine Specimen Description CATHETERIZED URINE Specimen Description Result: Testing performed at [facility];[address] [facility] [place] [address] CULTURE NO GROWTH 2 DAYS CULTURE Result: Testing performed at [facility], [address] [place] [address] REPORT STATUS 04/04/2012 FINAL PROBLEM LIST Active [...] pathology specimen will also be reevaluated in [place] Renal Failure -kidney biopsy shows advanced fibrotic changes with little chance of recovery. HD planned in the [facility] ID follow up in a week Code Status: Full Code ELSIE LERNER MD 04/15/2012 lsie Lerner - 04/14/2012 3:46 PM PDT Progress Notes by Elsie Lerner MD at 04/14/12 4951 Author: Elsie Lerner MD Service: (none) Author Type: Physician Filed: 04/14/12 6187 Date of Service: 04/14/121545 Status: Signed Stick Feeder: Elsie Lerner MD (Physician) [facility]: [...] (36.8 C)] 98.3 F (36.8 C) (04/14 114) BP: (114-152)/(64-84) 134/74 mmHg (04/14 114) Heart Rate: [65-76] 74 (04/14 114) Resp: [16-20] 20 (04/14 114) SpO2: [99 %-100 %] 100 % (04/14 114) Weight: [97.6 kg (215 lb 2.7 oz)] 97.6 kg (215 lb 2.7 oz) (04/14 0408) Physical Exam Vitals reviewed. Constitutional: He appears [...] ions at upper extremities. LUE PICC at [facility]. Psychiatric: Thought content normal. DATA CBC: Lab [...] Units Date/Time Blood culture, 2 of 2 [[id number]] (Abnormal) Collected:04/12/12 1231 Order Status:Completed Updated:04/14/12 1434 Specimen Information:Blood Specimen Description BLOOD, PERIPHERAL DRAW Specimen Description Result: Testing performed at [facility];[address] [place] [address];[place] [address] SPECIAL REQUESTS L WRIST SPECIAL REQUESTS Result: Testing performed at [facility];[address] [place] [address] 52832 GRAM STAIN Result: GRAM POSITIVE COCCI SEEN ON GRAM STAIN FROM AEROBIC BOTTLE SMEAR RESULTS CALLED TO AND READ BACK BY: SOULEYMANE Levine IN 4RP AT 0732 ON [id number] BY CRK GRAM STAIN GRAM POSITIVE COCCI IN CLUSTERS GRAM STAIN Result: CALLED RESULTS TO BEST Tan ON 4RP AT 1140 ON 04/14/12 [facility] RESULTS REPEATED GRAM STAIN Result: Testing performed at [facility];[address] [place] [address] 40502 CULTURE Result: STAPHYLOCOCCUS AUREUS SUSCEPTIBILITY TO FOLLOW (A) CULTURE GROWTH IN TWO OF TWO BOTTLES (A) CULTURE TIME TO DETECTION: 0.71 DAYS CULTURE Result: Testing performed at [address] [address] REPORT STATUS PENDING Blood culture [[id number]] (Abnormal) Collected:04/11/12216 Order Status:Completed Updated:04/14/12853 Specimen Information:Blood Specimen Description BLOOD, PERIPHERAL DRAW Specimen Description Result: Testing performed at [facility];[address] [place] [address]13 SPECIAL REQUESTS RHAND SPECIAL REQUESTS Result: Testing performed at [facility];[address] [place] [address] 51933 GRAM STAIN Result: GRAM POSITIVE COCCI IN CLUSTERS SEEN IN AEROBIC BOTTLE SMEAR RESULTS CALLED TO AND READ BACK BY: DAVID Díaz/4RP 1921 JCM (A) GRAM STAIN Result: GRAM POSITIVE COCCI IN CLUSTERS SEEN ON SMEAR OF ANAEROBIC BOTTLE GRAM STAIN Result: CALLED TO 4RP/DAVID Díaz ON 04/14/12 AT 0657 BY READBACK GRAM STAIN Result: Testing performed at [facility];[address] [place] [address] 94805 CULTURE STAPHYLOCOCCUS AUREUS (A) CULTURE TIME TO DETECTION: 0.67 DAYS CULTURE GROWTH IN TWO OF TWO BOTTLES (A) CULTURE Result: VANCOMYCIN TERRANCE IS LESS THAN OR EQUAL TO 0.5 Mcg/mL CULTURE Result: Testing performed at [address] [address] REPORT STATUS 04/14/2012 FINAL Organism STAPHYLOCOCCUS AUREUS [...] STAPHYLOCOCCUS AUREUS Blood culture, 1 of 2 [[id number]] (Abnormal) Collected:04/12/12 1200 Order Status:Completed Updated:04/14/1243 Specimen Information:Blood Specimen Description BLOOD, LINE DRAW Specimen Description Result: Testing performed at [facility];[address] [place] [address] 39834 SPECIAL REQUESTS ART SPECIAL REQUESTS Result: Testing performed at [facility];[address] [place] [address] 02719 GRAM STAIN Result: GRAM POSITIVE COCCI SEEN ON GRAM STAIN FROM AEROBIC BOTTLE SMEAR RESULTS CALLED TO AND READ BACK BY: DEIDRE Mccullough IN 4RP AT 0611 ON [id number] BY CRK GRAM STAIN Result: Testing performed at [facility];[address] [place] [address] 31426 CULTURE Result: STAPHYLOCOCCUS AUREUS SUSCEPTIBILITY TO FOLLOW (A) CULTURE GROWTH IN ONE OF TWO BOTTLES (A) CULTURE TIME TO DETECTION: 0.65 DAYS CULTURE Result: Testing performed at [facility], [address] [place] [address] 20316 REPORT STATUS PENDING Blood culture, 1 of 2 [[id number]] (Abnormal) Collected:04/10/12 1532 Order Status:Completed Updated:04/14/12804 Specimen Information:Blood Specimen Description BLOOD, PERIPHERAL DRAW Specimen Description Result: Testing performed at [facility];[address] [place] [address] 92951 SPECIAL REQUESTS LAC SPECIAL REQUESTS Result: Testing performed at [facility];[address] [place] [address] 12696 GRAM STAIN Result: GRAM POSITIVE COCCI SEEN ON GRAM STAIN FROM AEROBIC AND ANAEROBIC BOTTLES SMEAR RESULTS CALLED TO AND READ BACK BY: LINDA Mccullough IN 4RP AT 1340 ON [id number] BY CRK GRAM STAIN Result: Testing performed at [facility];[address] [place] [address] 55446 CULTURE STAPHYLOCOCCUS AUREUS (A) CULTURE Result: STREPTOCOCCUS ANGINOSUS SUSCEPTIBILITY TO FOLLOW (A) CULTURE TIME TO DETECTION: 0.85 DAYS CULTURE GROWTH IN TWO OF TWO BOTTLES (A) CULTURE Result: Testing performed at [facility], [address] [place] [address] 93915 REPORT STATUS PENDING Organism STAPHYLOCOCCUS AUREUS Culture [...] STAPHYLOCOCCUS AUREUS Blood culture, 2 of 2 [[id number]] Collected:04/13/12 1115 Order Status:Completed Updated:04/14/1255 Specimen Information:Blood Specimen Description BLOOD, PERIPHERAL DRAW Specimen Description Result: Testing performed at [facility];[address] [place] [address];[place] [address] SPECIAL REQUESTS L WRIST SPECIAL REQUESTS Result: Testing performed at [facility];[address] [place] [address] 11780 CULTURE NO GROWTH AT THIS TIME CULTURE Result: Testing performed at [facility];[address] [place] [address];[place] [address] REPORT STATUS PENDING Blood culture, 1 of 2 [[id number]] Collected:04/13/12 1109 Order Status:Completed Updated:04/14/1255 Specimen Information:Blood Specimen Description BLOOD, PERIPHERAL DRAW Specimen Description Result: Testing performed at [facility];[address] [place] [address];[place] [address] SPECIAL REQUESTS L ARM SPECIAL REQUESTS Result: Testing performed at [facility];[address] [place] [address];[place] [address] CULTURE NO GROWTH AT THIS TIME CULTURE Result: Testing performed at [facility];[address] [place] [address];[place] [address] REPORT STATUS PENDING Blood culture, 2 of 2 [[id number]] (Abnormal) Collected:04/10/12 1542 Order Status:Completed Updated:04/13/12 0732 Specimen Information:Blood Specimen Description BLOOD, PERIPHERAL DRAW Specimen Description Result: Testing performed at [facility];[address] [facility] [place] [address] SPECIAL REQUESTS RAC SPECIAL REQUESTS Result: Testing performed at [facility];[address] [place] [address];[place] [address] GRAM STAIN Result: GRAM POSITIVE COCCI IN CLUSTERS SEEN ON SMEAR FROM AEROBIC BOTTLE (A) GRAM STAIN Result: SMEAR RESULTS CALLED TO AND READ BACK BY: YAZMIN DUNCAN, 04/10/12 AT 2356 BY KM GRAM STAIN Result: Testing performed at [facility];[address] [place] [address];[place] [address] CULTURE STAPHYLOCOCCUS AUREUS (A) CULTURE GROWTH IN ONE OF TWO BOTTLES (A) CULTURE TIME TO DETECTION: 0.31 DAYS CULTURE VANCOMYCIN TERRANCE IS EQUAL TO ONE. CULTURE Result: Testing performed at [address] [address] REPORT STATUS 04/13/2012 FINAL Organism STAPHYLOCOCCUS AUREUS [...] (TERRANCE) STAPHYLOCOCCUS AUREUS Culture, drain tube tip [[id number]] (Abnormal) Collected:04/10/12 1905 Order Status:Completed Updated:04/12/12 1136 Specimen Information:Other / Catheter Tip Specimen Description CATHETER TIP Specimen Description Result: Testing performed at [facility];[address] [place] [address] CULTURE >15 COLONIES STAPHYLOCOCCUS AUREUS (A) CULTURE Result: THIS S. AUREUS IS SUSCEPTIBLE TO METHICILLIN (A) CULTURE Result: Testing performed at [address] [address] REPORT STATUS 04/12/2012 FINAL AFB culture and smear [[id number]] Collected:04/03/12 1415 Order Status:Completed Updated:04/11/12 1251 Specimen Information:Sputum Specimen Description SPUTUM Specimen Description Result: Testing performed at [facility];[address] [place] [address] AFB STAIN NO ACID FAST BACILLI SEEN AFB STAIN Result: Testing performed at [address] [address] CULTURE NO GROWTH AT THIS TIME CULTURE Result: Testing performed at [address] [address] REPORT STATUS PENDING Urine culture [[id number]] (Abnormal) Collected:04/07/12 1336 Order Status:Completed Updated:04/09/12 1356 Specimen Information:Urine Specimen Description URINE, COLLECTION NOT GIVEN Specimen Description Result: Testing performed at [facility];[address] [place] [address] CULTURE >100,000 CFU/ML STAPHYLOCOCCUS AUREUS (A) CULTURE Result: Testing performed at [facility], [address] [place] [address] REPORT STATUS 04/09/2012 FINAL Organism STAPHYLOCOCCUS AUREUS [...] STAPHYLOCOCCUS AUREUS Blood culture, 1 of 2 [[id number]] Collected:04/03/121414 Order Status:Completed Updated:04/09/12701 Specimen Information:Blood Specimen Description BLOOD, PERIPHERAL DRAW Specimen Description Result: Testing performed at [facility];[address] [place] [address] SPECIAL REQUESTS LAC SPECIAL REQUESTS Result: Testing performed at [facility];[address] [place] [address] CULTURE NO GROWTH IN 5 DAYS. CULTURE Result: Testing performed at [facility];[address] [place] [address] REPORT STATUS 04/09/2012 FINAL Blood culture, 2 of 2 [[id number]] Collected:04/03/121414 Order Status:Completed Updated:04/09/12701 Specimen Information:Blood Specimen Description BLOOD, PERIPHERAL DRAW Specimen Description Result: Testing performed at [facility];[address] [place] [address] SPECIAL REQUESTS RAC SPECIAL REQUESTS Result: Testing performed at [facility];[address] [place] [address] CULTURE NO GROWTH IN 5 DAYS. CULTURE Result: Testing performed at [facility];[address] [place] [address] REPORT STATUS 04/09/2012 FINAL Urine culture [[id number]] (Abnormal) Collected:04/06/12 0022 Order Status:Completed Updated:04/08/12 1505 Specimen Description URINE, COLLECTION NOT GIVEN Specimen Description Result: Testing performed at [facility];[address] [place] [address] CULTURE >100,000 CFU/ML STAPHYLOCOCCUS AUREUS (A) CULTURE Result: Testing performed at [facility], [address] [place] [address] REPORT STATUS 04/08/2012 FINAL Organism STAPHYLOCOCCUS AUREUS [...] (TERRANCE) >100,000 CFU/ML STAPHYLOCOCCUS AUREUS Urine Culture [[id number]] Collected:04/02/12228 Order Status:Completed Updated:04/04/12 195 Specimen Information:Urine Specimen Description CATHETERIZED URINE Specimen Description Result: Testing performed at [facility];[address] [place] [address] CULTURE NO GROWTH 2 DAYS CULTURE Result: Testing performed at [facility], [address] [place] [address] REPORT STATUS 04/04/2012 FINAL Radiology Results (last 7 days) Procedure Component Value Units Date/Time CT upper extremity left w contrast [[id number]] Resulted:04/14/12 0237 Order Status:Completed Updated:04/14/12 023 Narrative: CT LEFT FOREARM WITH CONTRAST 04/13/2012 [...] 2012 2:37AM CT abdomen pelvis with contrast [[id number]] Resulted:04/13/122319 Order Status:Completed Updated:04/13/122320 Narrative: CT ABDOMEN [...] 2012 11:20PM Ultrasound doppler venous arm left [[id number]] Collected:04/11/12 190 Order Status:Completed Updated:04/11/121909 Narrative: CAROL JOHN DOPPLER VENOUS ARM LEFT 04/11/2012 6:30 PM [...] vein thrombosis. Ultrasound doppler venous arm right [[id number]] Collected:04/10/12 2306 Order Status:Completed Updated:04/10/12 231 Narrative: [...] at 04/10/2012 11:11 PM. needle biopsy kidney [[id number]] Collected:04/10/121723 Order Status:Completed Updated:04/10/121733 Narrative: HISTORY: Renal [...] Service: Nephrology Author Type: Physician Filed: 04/14/12 1907 Date of Service: 04/14/12 1002 Status: Signed Stick Feeder: Cosmo Soria MD (Physician) PCP is Ashly [...] Left UE PICC line in situ. CASE: [id number] PATIENT: CAROL POTTER Surgical Pathology Report PATHOLOGIC [...] be set up for maintenance HD at [place] under Dr. Timmons. BP: Better controlled. However [...] Notes by Khadra Venegas RD, SINDY at 04/14/12842 Author: Khadra Venegas RD, CDE Service: (none) Author Type: Registered Dietitian Filed: 04/14/12843 Date of Service: 04/14/12842 Status: Signed Stick Feeder: Khadra Venegas RD, CDE (Cardiology Teacher) Elevated post prandial blood sugars. Recommend: Consider starting on 2 units of Novolog r outine with meals. Khadra Venegas RD, MPH, CDE, Cardiology Teacher 04/14/2012 8:44 AM Favio Blackburn MD - 04/14/2012 7:45 AM PDTFormatting of this note might be different f rom the original. Progress Notes by Favio Dawkins MD at 04/14/12744 Author: Favio Dawkins MD Service: Hospitalist Author Type: Physician Filed: 04/14/122321 Date of Service: 04/14/12744 Status: Signed Stick Feeder: Favio Dawkins MD (Physician) [facility]: Hospitalist Progress Note Hospital Day: LOS: 12 days Patient Summary: 47 year old with history of Hyperlipidemia, Hypertension, Diabetes mellitus type II, Asthma , Thyroid disease ,Meth abuse , denies alcoholism, MSSA bacteremia previously Apr 01 disapp eared from repeat blood cultures then grown on culture on 04/11/12 also with Anemia when he was admitted [facility] to have blood transfusion, who presented by ambulance from [facility]. Was there at 04/01 at 2100 [...] skin eruption skin biopsy awaiting report [facility] tomorrow Vitamin d deficiency/Secondary hyperparathyroidism (of renal origin) continue weekly ergoc alciferol and 1000 mg calcium orally for Hypocalcemia continue to monitor electrolytes yelena y. Hypothyroidism continue with present Dose of Levothroid Eczema herpeticum? On acyclovir and skin biopsy done Per Dr. Dan of [facility] who I talked to today inflammatory changes seen and he sent slide to [place] and stains still pending Hos pitlaist taking over should call him tomorrow if Dr. Dan does not call back in AM with re port that he said should be in tomorrow. MSSA Bacteremia recurrent - Yesterday's blood culture no growth after 2 successive positiv e cultures as discussed with Dr. Lerner continue ceftriaxone for now may need fci IV ABX like Vancomycin to begiven durng [...] and management as well as Computerized Physician International Accounting Manager. Told them somebody else from hospitalist service [...] 04/13/121929 Date of Service: 04/13/121929 Status: Signed Stick Feeder: Juan Lind RN (Registered Nurse) 1415 ~ MD into see pt after complaints of abdominal pain. MD told pt he was ordering a CT. [...] Notes by Cosmo Soria MD at 04/13/12 1253 Author: Cosmo Soria MD Service: Nephrology Author Type: Physician Filed: 04/13/12 1402 Date of Service: 04/13/12 1253 Status: Signed Stick Feeder: Cosmo Soria MD (Physician) PCP is Ashly [...] Service: (none) Author Type: Physician Filed: 04/13/12 7154 Date of Service: 04/13/12 1026 Status: Signed Stick Feeder: Kisha Tello MD (Physician) [facility]: Infectious Disease [...] mg Oral Daily DISCONTD: acyclovir 5 mg/kg ([place]) Intravenous Q24H DISCONTD: DAPTOmycin (CUBICIN) IV 6 [...] PERIPHERAL DRAW Specimen Description Testing performed at [facility];[address] [place] [address];[place] [address] SPECIAL REQUESTS RHAND SPECIAL REQUESTS Testing performed at [facility];[address] [place] [address];[place] [address] GRAM STAIN GRAM POSITIVE COCCI IN CLUSTERS SEEN IN AEROBIC BOTTLE SMEAR RESULTS CALLED T O AND READ BACK BY: DAVID Díaz/[address] [place] [address] A GRAM STAIN Testing performed at [facility];[place] [address] CULTURE STAPHYLOCOCCUS AUREUS ISOLATED A CULTURE GROWTH IN ONE OF TWO BOTTLES A CATHETER TIP Specimen Description Testing performed at [facility];[address] [place] [address];[place] [address] CULTURE >15 COLONIES STAPHYLOCOCCUS AUREUS A PROBLEM [...] Status: Full Code Kisha Tello MD 04/13/2012 Jeanne malone, Favio Willoughby MD - 04/13/2012 8:16 AM PDT Progress Notes by Favio Dawkins MD at 04/13/12 2330 Author: Favio Dawkins MD Service: (none) Author Type: Physician Filed: 04/13/12 1638 Date of Service: 04/13/12 08 Status: Addendum Stick Feeder: Favio Dawkins MD (Physician) Related Notes: Original Note by Favio Dawkins MD (Physician) filed at 04/13/12 8783 [facility]: Hospitalist Progress Note Hospital Day: LOS: 11 days Patient Summary: who presented by ambulance from [facility]. Was there at 04/01 at [...] mg Oral Daily DISCONTD: acyclovir 5 mg/kg ([place]) Intravenous Q24H DISCONTD: DAPTOmycin (CUBICIN) IV 6 [...] and management as well as Computerized Physician International Accounting Manager. Code Status: Full Code Favio Dawkins MD 04/13/20128:16 AM onversion Transaction, Provider Unknown - 04/13/2012 6:37 AM PDTFormatting of this note might be diff erent from the original. Progress Notes by Deidre Hudson RN at 04/13/12636 Author: Deidre Hudson RN Service: (none) Author Type: Registered Nurse Filed: 04/13/12 0639 Date of Service: 04/13/12636 Status: Signed Stick Feeder: Deidre Hudson RN (Registered Nurse) Hospitalist notified [...] 04/13/12232 Date of Service: 04/13/12232 Status: Signed Stick Feeder: Deidre Hudson RN (Registered Nurse) Pt denies pain, sob, or dizziness. Pt states getting rest, feeling better. Pt appears les s anxious, very cooperative. onver quique Transaction, Provider Unknown - 04/13/2012 1:40 AM PDT Progress Notes by Deidre Hudson RN at 04/13/12 0140 Author: Deidre Hudson RN Service: (none) Author Type: Registered Nurse Filed: 04/13/12 0146 Date of Service: 04/13/12139 Status: Signed Stick Feeder: Deidre Hudson RN (Registered Nurse) Pt in restroom upon entering room. Pt reminded to use call light for assistance getting ou t of bed. Pt states understanding. onver quique Transaction, Provider Unknown - 04/13/2012 1:00 AM PDT Progress Notes by Deidre Hudson RN at 04/13/1299 Author: Deidre Hudson RN Service: (none) Author Type: Registered Nurse Filed: 04/13/1299 Date of Service: 04/13/1299 Status: Signed Stick Feeder: Deidre Hudson RN (Registered Nurse) Pt resting, does not appear to be in any distress. Will continue to monitor. onver quique Transaction, Provider Unknown - 04/12/2012 9:30 PM PDT Progress Notes by Deidre Hudson RN at 04/12/122129 Author: Deidre Hudson RN Service: (none) Author Type: Registered Nurse Filed: 04/12/122214 Date of Service: 04/12/122129 Status: Signed Stick Feeder: Deidre Hudson RN (Registered Nurse) Spoke to [...] Notes by Cosmo Soria MD at 04/12/12 9729 Author: Cosmo Soria MD Service: Nephrology Author Type: Physician Filed: 04/12/12 7841 Date of Service: 04/12/12 1363 Status: Signed Stick Feeder: Cosmo Soria MD (Physician) PCP is Ashly [...] mg Oral Daily DISCONTD: acyclovir 5 mg/kg ([place]) Intravenous Q24H DISCONTD: DAPTOmycin (CUBICIN) IV 6 [...] In: 4350 [P.O.:1300; Other:2800; IV Piggyback:250] Out: 71809 [Urine:1050; Other:9000; Stool:1] Weight change: -1.7 kg [...] of this encounter. COSMO SORIA MD 04/12/2012 uresh, Kisha Rousseau MD - 04/12/2012 10:42 AM PDT Progress Notes by Kisha Tello MD at 04/12/12 1042 Author: Kisha Tello MD Service: (none) Author Type: Physician Filed: 04/12/12 3310 Date of Service: 04/12/12 1042 Status: Signed Stick Feeder: Kisha Tello MD (Physician) [facility]: Infectious Disease [...] mg Oral Daily DISCONTD: acyclovir 5 mg/kg ([place]) Intravenous Q24H DISCONTD: DAPTOmycin (CUBICIN) IV 6 [...] PERIPHERAL DRAW Specimen Description Testing performed at [facility];[address] [place] [address];[place] [address] SPECIAL REQUESTS RHAND SPECIAL REQUESTS Testing performed at [facility];[address] [place] [address] GRAM STAIN GRAM POSITIVE COCCI IN CLUSTERS SEEN IN AEROBIC BOTTLE SMEAR RESULTS CALLED T O AND READ BACK BY: DAVID Díaz/P 192[facility] A GRAM STAIN Testing performed at [facility];[address] [place] [address] CULTURE STAPHYLOCOCCUS AUREUS ISOLATED A CULTURE GROWTH IN ONE OF TWO BOTTLES A CATHETER TIP Specimen Description Testing performed at [facility];[address] [place] [address] CULTURE >15 COLONIES STAPHYLOCOCCUS AUREUS A PROBLEM [...] MD Service: Hospitalist Author Type: Physician Filed: 04/13/12 1640 Date of Service: 04/12/12819 Status: Addendum Stick Feeder: Favio Dawkins MD (Physician) Related Notes: Original Note by Favio Dawkins MD (Physician) filed at 04/12/122019 [facility]: Hospitalist Progress Note Hospital Day: LOS: 10 days Patient Summary: who presented by ambulance from [facility] Was there at 04/01 at 2100 [...] Overnight: none Scheduled Medications acyclovir 5 mg/kg ([place]) Intravenous Q24H amlodipine 10 mg Oral Daily [...] and relative tried to encourage him ag critical access hospitalough today he does not seem to need [...] and management as well as Computerized Physician International Accounting Manager. Code Status: Full Code Favio Dawkins MD 04/12/20128:20 AM Tammie Lang MD - 04/11/2012 3:34 PM PDTFormatting of this note might be different from the malik garza Progress Notes by Cosmo Soria MD at 04/11/12 3764 Author: Cosmo Soria MD Service: Nephrology Author Type: Physician Filed: 04/11/12 3368 Date of Service: 04/11/12 1534 Status: Signed Stick Feeder: Cosmo Soria MD (Physician) PCP is Ashly Quick MD, LOS: 9 days Carol Potter is a [...] antecubital vein. Scheduled Medications acyclovir 5 mg/kg ([place]) Intravenous Q24H amlodipine 10 mg Oral Daily [...] (none) Author Type: Registered Nurse Filed: 04/11/12 4782 Date of Service: 04/11/12 1500 Status: Signed Stick Feeder: Salima Red, RN (Registered Nurse) Dr Tello aware of blood cultures Kathy Nance MSW - 04/11/2012 10:33 AM PDT Progress Notes by VANDANA Gonzalez at 04/11/12 1033 Author: VANDANA Gonzalez Service: (none) Author Type: Breast Worker Filed: 04/11/12 1034 Date of Service: 04/11/12 1033 Status: Signed Stick Feeder: VANDANA Gonzalez (Breast Worker) Patient's spouse reporting patient is set up for dialysis in [facility], with [facility] to tra [place] to app. Spouse reports the dialysis center is only 4 miles from their home. Kisha Adamson MD - 04/11/2012 9:05 AM PDT Progress Notes by Kisha Tello MD at 04/11/1205 Author: Kisha Tello MD Service: (none) Author Type: Physician Filed: 04/11/12 1517 Date of Service: 04/11/12904 Status: Addendum Stick Feeder: Kisha Tello MD (Physician) Related Notes: Original Note by Kisha Tello MD (Physician) filed at 04/11/12 1511 [facility]: Infectious Disease Progress Note [...] up. . Scheduled Medications acyclovir 5 mg/kg ([place]) Intravenous Q24H amlodipine 10 mg Oral Daily [...] on acyclovir for possibility of eczema herpeticum. [id number] is positive. Would await skin biopsy results [...] 1736 Date of Service: 04/11/12837 Status: Signed Stick Feeder: Favio Dawkins MD (Physician) [facility]: Hospitalist Progress Note Hospital Day: LOS: 9 days Patient Summary: who presented by ambulance from [facility]. Was there at 04/01 at [...] Overnight: none Scheduled Medications acyclovir 5 mg/kg ([place]) Intravenous Q24H amlodipine 10 mg Oral Daily [...] Full Code Favio Dawkins MD 04/11/20128:38 AM Frank Avina MD - 04/10/2012 11:52 PM PDTFormatting of this note might be different from th e original. Progress Notes by Frank Wilson MD at 04/10/122351 Author: Frank Wilson MD Service: (none) Author Type: Physician Filed: 04/11/12 0004 Date of Service: 04/10/122351 Status: Signed Stick Feeder: Frank Wilson MD (Physician) Partial Note US report from Radiologist received , consistent with: Ultrasound doppler venous arm right [[id number]] Collected:04/10/122305 Order Status:Tiffanie ren Updated:04/10/122318 Narrative: CAROL OPTTER US DOPPLER VENOUS ARM RIGHT 04/10/2012 9:15 [...] 04/10/121912 Date of Service: 04/10/121910 Status: Signed Stick Feeder: Nehal Coleman RN (Registered Nurse) Notified Dr. Dawkins of swelling, reddness and warm to touch of L UA IV site. New order s received and implemented. NEHAL COLEMAN RN Kathy Nance MSW - 04/10/2012 12:38 PM PDT Progress Notes by VANDANA Gonzalez at 04/10/12 1238 Author: VANDANA Gonzalez Service: (none) Author Type: Breast Worker Filed: 04/10/12 1239 Date of Service: 04/10/12 1238 Status: Signed Stick Feeder: VANDANA Gonzalez (Breast Worker) Pt is new dialysis, acute with Jeanine Glynn arranging chair appt in dialysis center in [facility]. Anticipate dc possibly Saturday. Family to transport. Kisha Adamson MD - 04/10/2012 11:05 AM PDT Progress Notes by Kisha Tello MD at 04/10/12 1105 Author: Kisha Tello MD Service: (none) Author Type: Physician Filed: 04/10/12 1502 Date of Service: 04/10/12 1105 Status: Signed Stick Feeder: Kisha Tello MD (Physician) [facility]: Infectious Disease [...] diarrhea . Scheduled Medications acyclovir 5 mg/kg ([place]) Intravenous Q24H albumin human 12.5 g Intravenous [...] on acyclovir for possibility of eczema herpeticum. [id number] is positive. Would await skin biopsy results [...] as needed. Code Status: Full Code Kisha eTllo MD 04/10/2012 onversio n Transaction, Provider Unknown - 04/10/2012 10:53 AM PDTFormatting of this note might be di fferent from the original. Progress Notes by Marivel Ocampo at 04/10/12 1053 Author: Marivel Ocampo Service: (none) Author Type: Registered Nurse Filed: 04/10/12 1055 Date of Service: 04/10/12 1053 Status: Signed Stick Feeder: Marivel Ocampo Pt transported back to his [...] Service: Nephrology Author Type: Physician Filed: 04/10/12 6669 Date of Service: 04/10/12 1017 Status: Signed Stick Feeder: Sean Solorzano MD (Physician) [facility]: NEPHROLOGY Progress Note Carol Tariq 47 y.o. [id number] male Ashly Quick MD, MD Hospital Day: LOS: 8 days SUBJECTIVE Patient seen and examined. ADMITTED WITH Renal failure, acute [place] ADMITTED WITH Renal failure, acute ASSOCIATED WITH FLUID ELECTROLYTE ACID BASE ABNORMALITIES HISTORY OF PRESENT ILLNESS The patient is a 47 y.o. male with significant past medical history of DYSLIPIDEMIA, HYPERTENSION, DM II, ASTHMA, ANEMIA, GOUT, who presented by ambulance from [facility]. Was there at 04/01 at [...] HERE HAPPILY FOR 22 YEARS, LIVES in [place] AT HOME WITH , 04/09/2012; Pt C/O [...] WITH [employer]; KIDSUNEMPLOYED BEFORE WORKED AT [employer] [place] [employer] NONE ETOH QUIT 15 YEARS AGODRUGS: USES METHAMPHETAMINES PER PATIENTF ATHER HAS COLON CANCER, HEART DISEASEMOTHER 15 YEARS [facility] KIDNEY PROBLEMS. History reviewed. No pertinent family history. Scheduled Medications acyclovir 5 mg/kg ([place]) Intravenous Q24H albumin human 12.5 g Intravenous [...] IN [facility] HD UNIT UNDER DR TIMMONS Time spend [...] 04/10/122032 Date of Service: 04/10/12819 Status: Signed Stick Feeder: Favio Dawkins MD (Physician) [facility]: Hospitalist Progress Note Hospital Day: LOS: 8 days Patient Summary: who presented by ambulance from [facility]. Was there at 04/01 at [...] Overnight: none Scheduled Medications acyclovir 5 mg/kg ([place]) Intravenous Q24H albumin human 12.5 g Intravenous [...] Electronically signed by Braden Paige MD on 1:[address] Chest Without Contrast 04/07/2012 [...] Full Code Favio Dawkins MD 04/10/20128:20 AM aurice Solorzano T - 04/09/2012 6:02 PM PDT Progress Notes by Sean Solorzano MD at 04/09/121801 Author: Sean Solorzano MD Service: Nephrology Author Type: Physician Filed: 04/09/122241 Date of Service: 04/09/121801 Status: Signed Stick Feeder: Sean Solorzano MD (Physician) [facility]: NEPHROLOGY Progress Note Carol Potter 47 y.o. [phone] [id number] male Ashly Quick MD, MD Hospital Day: LOS: 7 days SUBJECTIVE Patient seen and examined. ADMITTED WITH Renal failure, acute [place] ADMITTED WITH Renal failure, acute ASSOCIATED WITH FLUID ELECTROLYTE ACID BASE ABNORMALITIES HISTORY OF PRESENT ILLNESS The patient is a 47 y.o. male with significant past medical history of DYSLIPIDEMIA, HYPERTENSION, DM II, ASTHMA, ANEMIA, GOUT, who presented by ambulance from [facility]. Was there at 04/01 at [...] HERE HAPPILY FOR 22 YEARS, LIVES in [place] AT HOME WITH , Pt C/O SOB [...] WITH [employer]; KIDSUNEMPLOYED BEFORE WORKED AT [employer]/ [employer] NONE ETOH QUIT 15 YEARS AGODRUGS: USES METHAMPHETAMINES PER PATIENTF ATHER HAS COLON CANCER, HEART DISEASEMOTHER 15 YEARS [place] FH KIDNEY PROBLEMS. History reviewed. No pertinent family history. Scheduled Medications acyclovir 5 mg/kg ([place]) Intravenous Q24H amlodipine 10 mg Oral Daily [...] IN [facility] HD UNIT UNDER DR TIMMONS Time spend [...] original. Progress Notes by Khadra Venegas RD, JAYAE at 04/09/12835 Author: Khadra Venegas RD, CDE Service: (none) Author Type: Registered Dietitian Filed: 04/09/12835 Date of Service: 04/09/12835 Status: Signed Stick Feeder: Khadra Venegas RD, CDE (Cardiology Teacher) Elevated blood sugars yesterday after last dose of steroids. Recommend: Consider increasi ng to high dose correctional scale insulin. Khadra Venegas RD, MPH, CDE, Cardiology Teacher 8:36 AM Favio Blackburn MD - 04/09/2012 8:10 AM PDTFormatting of this note might be different f rom the original. Progress Notes by Favio Dawkins MD at 04/09/12809 Author: Favio Dawkins MD Service: (none) Author Type: Physician Filed: 04/09/121814 Date of Service: 04/09/12809 Status: Signed Stick Feeder: Favio Dawkins MD (Physician) [facility]: Hospitalist Progress Note Hospital Day: LOS: 7 days Patient Summary: who presented by ambulance from [facility] Was there at 04/01 at 2100 [...] Overnight: none Scheduled Medications acyclovir 5 mg/kg ([place]) Intravenous Q24H amlodipine 10 mg Oral Daily [...] Code Favio Dawkins MD 04/09/20128:10 AM oster, VANDANA Gregorio - 04/08/2012 3:44 PM PDTFormatting of this note might be different from the origi nal. Progress Notes by VANDANA Gonzalez at 04/08/12 0406 Author: VANDANA Gonzalez Service: (none) Author Type: Breast Worker Filed: 04/08/12 1548 Date of Service: 04/08/121543 Status: Signed Stick Feeder: VANDANA Gonzalez (Breast Worker) At patient's consent and request CM confirmed to Ced at [facility] that patient continued to be hospitalized on behalf of sister so she could obtain a gas voucher to visit her broth er. onversion Transact ion, Provider Unknown - 04/08/2012 3:26 PM PDTFormatting of this note might be different fr om the original. Progress Notes by Khadra Venegas RD, CDE at 04/08/121525 Author: Khadra Venegas RD, CDE Service: (none) Author Type: Registered Dietitian Filed: 04/08/12 1527 Date of Service: 04/08/121525 Status: Signed Stick Feeder: Khadra Venegas RD, CDE (Cardiology Teacher) Pt with elevated blood sugars d/t high dose steroids. Steroids stopped today. Anticipate blood sugars to normalize as HbA1c is within a normal range. Will continue to follow for bl ood sugars. Khadra Venegas RD, MPH, CDE, Cardiology Teacher 04/08/2012 3:27 PM Sean Willis T - 04/08/2012 2:33 PM PDTFormatting of this note might be different from the origi nal. Progress Notes by Sean Solorzano MD at 04/08/12 1433 Author: Sean Solorzano MD Service: Nephrology Author Type: Physician Filed: 04/08/121701 Date of Service: 04/08/121432 Status: Signed Stick Feeder: Sean Solorzano MD (Physician) [facility]: NEPHROLOGY Progress Note Carol Potter 47 y.o. [id number] male Ashly Quick MD, MD Hospital Day: LOS: 6 days SUBJECTIVE Patient seen and examined. ADMITTED WITH Renal failure, acute YAKIOK AK CHIN ADMITTED WITH Renal failure, acute ASSOCIATED WITH FLUID ELECTROLYTE ACID BASE ABNORMALITIES HISTORY OF PRESENT ILLNESS The patient is a 47 y.o. male with significant past medical history of DYSLIPIDEMIA, HYPERTENSION, DM II, ASTHMA, ANEMIA, GOUT, who presented by ambulance from [facility]. Was there at 04/01 at [...] HERE HAPPILY FOR 22 YEARS, LIVES in [place] AT HOME WITH , Past Medical History [...] WITH [employer]; KIDSUNEMPLOYED BEFORE WORKED AT [employer] IN [place]/ [employer] COURSESMOKE NONE ETOH QUIT 15 YEARS AGODRUGS: USES METHAMPHETAMINES PER PATIENTF ATHER HAS COLON CANCER, HEART DISEASEMOTHER 15 YEARS [place] FH KIDNEY PROBLEMS. History reviewed. No pertinent family history. Scheduled Medications acyclovir 5 mg/kg ([place]) Intravenous Q24H amlodipine 10 mg Oral Daily [...] completed shifts: In: 3486 [P.O.:1600; I.V.:1886] Out: 185 [Urine:1850; Stool:1] Weight change: -2.2 kg (-4 [...] Physician Filed: 04/08/12 1701 Date of Service: 04/08/12 1331 Status: Signed Stick Feeder: Kisha Tello MD (Physician) [facility]: Infectious Disease [...] bleeding. . Scheduled Medications acyclovir 5 mg/kg ([place]) Intravenous Q24H amlodipine 10 mg Oral Daily [...] Status: Full Code Kisha Tello MD 04/08/2012 eva malone, Favio Willoughby MD - 04/08/2012 8:47 AM PDT Progress Notes by Favio Dawkins MD at 04/08/12 08 Author: Favio Dawkins MD Service: Hospitalist Author Type: Physician Filed: 04/08/12 9760 Date of Service: 04/08/12846 Status: Signed Stick Feeder: Favio Dawkins MD (Physician) [facility]: Hospitalist Progress Note Hospital Day: LOS: 6 days Patient Summary: who presented by ambulance from [facility]. Was there at 04/01 at [...] Overnight: none Scheduled Medications acyclovir 5 mg/kg ([place]) Intravenous Q24H amlodipine 10 mg Oral Daily [...] Full Code Favio Dawkins MD 04/08/20128:47 AM aurice Solorzano T - 04/07/2012 2:52 PM PDT Progress Notes by Sean Solorzano MD at 04/07/12 127 Author: Sean Solorzano MD Service: Nephrology Author Type: Physician Filed: 04/07/12 0023 Date of Service: 04/07/121451 Status: Signed Stick Feeder: Sean Solorzano MD (Physician) [facility]: NEPHROLOGY Progress Note Carol Potter 47 y.o. [id number] 4451/4451-1 male Ashly Quick MD, MD Hospital Day: LOS: 5 days SUBJECTIVE Patient seen and examined. YAKIMA AK CHIN ADMITTED WITH Renal failure, acute ASSOCIATED WITH FLUID ELECTROLYTE ACID BASE ABNORMALITIES HISTORY OF PRESENT ILLNESS The patient is a 47 y.o. male with significant past medical history of DYSLIPIDEMIA, HYPERTENSION, DM II, ASTHMA, ANEMIA, GOUT, who presented by ambulance from [facility]. Was there at 04/01 at [...] HERE HAPPILY FOR 22 YEARS, LIVES in [place] AT HOME WITH , Past Medical History [...] WITH [employer]; KIDSUNEMPLOYED BEFORE WORKED AT [employer] [place]/ [employer] COURSESMOKE NONE ETOH QUIT 15 YEARS AGODRUGS: USES METHAMPHETAMINES PER PATIENTF ATHER HAS COLON CANCER, HEART DISEASEMOTHER 15 YEARS [facility] FH KIDNEY PROBLEMS. History reviewed. No pertinent family history. Scheduled Medications acyclovir 5 mg/kg ([place]) Intravenous Q24H amlodipine 10 mg Oral Daily [...] from the origina l. Progress Notes by Janene Wheeler DO at 04/07/12 1141 Author: Janene Wheeler DO Service: Hospitalist Author Type: Physician Filed: 04/07/12 1142 Date of Service: 04/07/12 1141 Status: Signed Stick Feeder: Janene Wheeler DO (Physician) [facility]: Hospitalist Progress Note Hospital Day: LOS: 5 days Addendum Urine culture positive for S. Aureus, susceptibilities pending. ID following. Janene Ryan DO - 03/24 11:22 AM PDT Progress Notes by Janene Wheeler DO at 04/07/12 1122 Author: Janene Wheeler DO Service: Hospitalist Author Type: Physician Filed: 04/07/12 1140 Date of Service: 04/07/12 112 Status: Signed Stick Feeder: Janene Wheeler DO (Physician) [facility]: Hospitalist Progress Note Hospital Day: LOS: 5 days Patient Summary: who presented by ambulance from [facility] Was there at 04/01 at 2100 [...] Overnight: none Scheduled Medications acyclovir 5 mg/kg ([place]) Intravenous Q24H amlodipine 10 mg Oral Daily [...] NSAIDs, ACEI, and diarrhea. Dr Timmons following, clos zach monitoring for possible hemodialysis if no improvement. [...] Full Code JANENE WHEELER DO 04/07/201211:27 AM Kisha Adamson MD - 04/07/2012 10:24 AM PDT Progress Notes by Kisha Tello MD at 04/07/12 1024 Author: Kisha Tello MD Service: (none) Author Type: Physician Filed: 04/07/12 1420 Date of Service: 04/07/12 1024 Status: Signed Stick Feeder: Kisha Tello MD (Physician) [facility]: Infectious Disease [...] chills . Scheduled Medications acyclovir 5 mg/kg ([place]) Intravenous Q24H amlodipine 10 mg Oral Daily [...] should be okay. Code Status: Full Code Kisah Tello MD 04/07/2012 onversio n Transaction, Provider Unknown - 04/06/2012 8:11 PM PDTFormatting of this note might be di fferent from the original. Progress Notes by Olivia Alvarenga RN at 04/06/122010 Author: Olivia Alvarenga RN Service: (none) Author Type: Registered Nurse Filed: 04/06/122011 Date of Service: 04/06/122010 Status: Signed Stick Feeder: Olivia Alvarenga RN (Registered Nurse) SBAR report given to Adam Beverly. All questions stated to be asked and answered. Transfer o f care complete. Edith Wilson MD - 04/06/2012 5:08 PM PDTFormatting of this note might be different from the o riginal. 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 Hemodynamically stable. No further epistaxis. Denies any [...] lesions noted. Scheduled Medications acyclovir 5 mg/kg ([place]) Intravenous Q24H amlodipine 10 mg Oral Daily [...] Notes by Kisha Tello MD at 04/06/12 9687 Author: Kisha Tello MD Service: (none) Author Type: Physician Filed: 04/06/12 1418 Date of Service: 04/06/121226 Status: Signed Stick Feeder: Kisha Tello MD (Physician) [facility]: Infectious Disease [...] Filed: 04/10/12 1122 Date of Service: 04/06/12 105 Status: Signed Stick Feeder: Juan Timmons MD (Physician) [facility]: NEPHROLOGY PROGRESS Note Carol Tariq 47 y.o. [id number]/[id number] male Ashly Quick MD, MD Hospital Day: LOS: 4 days Date of Admission: 04/06/2012 HISTORY OF PRESENT ILLNESS The patient is a 47 y.o. male with significant past medical history of Past Medical History Diagnosis Date Hyperlipidemia Hypertension Diabetes mellitus type II Asthma Thyroid disease Anemia who presented by ambulance from [facility]. Was there at 04/01 at [...] WITH [employer]; KIDSUNEMPLOYED BEFORE WORKED AT [employer] [place]/ [employer] COURSESMOKE NONE ETOH QUIT 15 YEARS AGODRUGS: [...] WITH [employer]; KIDSUNEMPLOYED BEFORE WORKED AT [employer] [place]/ [employer] COURSES[employer]KE NONE ETOH QUIT 15 YEARS AGODRUGS: [...] DETAIL, VERBALIZES UNDERSTANDING JUAN TIMMONS MD 04/06/2012 uan Timmons - 04/05/2012 11:20 AM PDT Progress Notes by Juan Timmons MD at 04/05/12 0464 Author: Juan Timmons MD Service: Nephrology Author Type: Physician Filed: 04/05/12 1380 Date of Service: 04/05/12 1120 Status: Signed Stick Feeder: Juan Timmons MD (Physician) [facility]: NEPHROLOGY PROGRESS Note Carol Potter 47 y.o. [id number] male Ashly Quick MD, MD Hospital Day: LOS: 3 days Date of Admission: 04/05/2012 HISTORY OF PRESENT ILLNESS The patient is a 47 y.o. male with significant past medical history of Past Medical History Diagnosis Date Hyperlipidemia Hypertension Diabetes mellitus type II Asthma Thyroid disease Anemia who presented by ambulance from [facility]. Was there at 04/01 at [...] WITH [employer]; KIDSUNEMPLOYED BEFORE WORKED AT [employer] [place]/ [employer] COURSESMOKE NONE ETOH QUIT 15 YEARS AGODRUGS: [...] WITH [employer]; KIDSUNEMPLOYED BEFORE WORKED AT [employer] [place]/ [employer] COURSES[employer]KE NONE ETOH QUIT 15 YEARS AGODRUGS: [...] ETAIL, VERBALIZES UNDERSTANDING JUAN TIMMONS MD 04/05/2012 [email or web address] - 04/05 9:36 AM PDT Progress Notes by Trevor Escobar DO at 04/05/12 0936 Author: Trevor Escobar DO Service: (none) Author Type: Physician Filed: 04/05/12 1045 Date of Service: 04/05/1236 Status: Signed Stick Feeder: Trevor Escobar DO (Physician) [facility]: Infectious Disease Progress [...] not received any antibiotics. ID jose miguel iperce was requested of her concern about his [...] 04/05/12825 Date of Service: 04/05/12819 Status: Signed Stick Feeder: Janene Wheeler DO (Physician) [facility]: Hospitalist Progress Note Addendum Patient had a run of VTach 10 beats, has chest pain Will give IV Magnesium and IV calcium gluconate, and check cardiac enzymes. Code Status: Full Code JANENE WHEELER DO 04/05/20128:20 AM Janene Ryan DO - 03/24 7:11 AM PDT Progress Notes by Janene Wheeler DO at 04/05/12710 Author: Janene Wheeler DO Service: Hospitalist Author Type: Physician Filed: 04/05/12 0737 Date of Service: 04/05/12710 Status: Signed Stick Feeder: Janene Wheeler DO (Physician) [facility]: Hospitalist Progress Note Hospital Day: LOS: 3 days Patient Summary: who presented by ambulance from [facility]. Was there at 04/01 at [...] hours No results found for this basename: PHART:3,PO2ART:3,GCN1MPA:3,D9TWNTUF:3,BEART:[address] 168 hours Lab [...] NSAIDs, ACEI, and diarrhea. Dr Timmons following, clos zach monitoring for possible hemodialysis if no improvement. [...] Full Code JANENE WHEELER DO 04/05/20127:34 AM Juan Farrar - 6:04 PM PDT Progress Notes by Juan Timmons MD at 04/04/121803 Author: Juan Timmons MD Service: Nephrology Author Type: Physician Filed: 04/04/121811 Date of Service: 04/04/121803 Status: Signed Stick Feeder: Juan Timmons MD (Physician) [facility]: NEPHROLOGY PROGRESS Note Carol Potter 47 y.o. [id number]/4451-1 male Ashly Quick MD, MD Hospital Day: LOS: 2 days Date of Admission: 04/04/2012 HISTORY OF PRESENT ILLNESS The patient is a 47 y.o. male with significant past medical history of Past Medical History Diagnosis Date Hyperlipidemia Hypertension Diabetes mellitus type II Asthma Thyroid disease Anemia who presented by ambulance from [facility]. Was there at 04/01 at [...] WITH [employer]; KIDSUNEMPLOYED BEFORE WORKED AT [employer] IN [place] NONE ETOH QUIT 15 YEARS AGODRUGS: USES [...] WITH [employer]; KIDSUNEMPLOYED BEFORE WORKED AT [employer] IN [place] NONE ETOH QUIT 15 YEARS AGODRUGS: USES [...] ETAIL, VERBALIZES UNDERSTANDING JUAN TIMMONS MD 04/04/2012 osterKathy MSW - 04/04/2012 4:53 PM PDT Progress Notes by VANDANA Gonzalez at 04/04/121652 Author: VANDANA Gonzalez Service: (none) Author Type: Breast Worker Filed: 04/04/12 859 Date of Service: 04/04/121652 Status: Signed Stick Feeder: VANDANA Gonzalez (Breast Worker) CM provided patient's family members two meal vouchers, an adult and a teenager. Pt has In [facility], with family to transport upon discharge. erelena DO Janene - 04/04/2012 2:59 PM PDT Progress Notes by Janene Wheeler DO at 04/04/12 4741 Author: Janene Wheeler DO Service: Hospitalist Author Type: Physician Filed: 04/04/12 5936 Date of Service: 04/04/126 Status: Signed Stick Feeder: Janene Wheeler DO (Physician) [facility]: Hospitalist Progress Note Hospital Day: LOS: 2 days Patient Summary: who presented by ambulance from [facility]. Was there at 04/01 at [...] found with this basename: LABALBU:3 Lab 04/04/12 0605 04/03/12 0505 04/02/12 1126 MG 1.8 2.1 2.3 No results found for this basename: AMYLASE:3 in the last 168 hours No results found for this basename: PHART:3,PO2ART:3,VER0UGT:3,N5DKJCSU:3,BEART:[address] 168 hours Lab [...] Full Code JANENE WHEELER DO 04/04/20125:34 PM revor Escobar - 012 9:41 AM PDT Progress Notes by Trevor Escobar DO at 04/04/12940 Author: Trevor Escobar DO Service: (none) Author Type: Physician Filed: 04/04/12946 Date of Service: 04/04/12940 Status: Signed Stick Feeder: Trevor Escobar DO (Physician) [facility]: Infectious Disease Progress [...] to follow. Code Status: Full Code TREVOR ESCOBAR, 04/04/2012 athy Brown MSW - 04/2012 1:56 PM PDT Progress Notes by VANDANA Gonzalez at 04/03/12 7377 Author: VANDANA Gonzalez Service: (none) Author Type: Breast Worker Filed: 04/03/12 5245 Date of Service: 04/03/12 7166 Status: Signed Stick Feeder: VANDANA Gonzalez (Breast Worker) faxed proof of admission with patient's signed consent to release medical information in hard chart to [facility] [employer]. Sister Margarita had requested so she could apply for gas voucher to visit her brother. Juan Farrar - 04/03/2012 11:49 AM PDT Progress Notes by Juan Timmons MD at 04/03/12 8283 Author: Juan Timmons MD Service: Nephrology Author Type: Physician Filed: 04/03/12 9675 Date of Service: 04/03/12 0106 Status: Signed Stick Feeder: Juan Timmons MD (Physician) [facility]: NEPHROLOGY PROGRESS Note Carol Potter 47 y.o. [id number]/4451-1 male Ashly Quick MD, MD Hospital Day: LOS: 1 day Date of Admission: 04/03/2012 HISTORY OF PRESENT ILLNESS The patient is a 47 y.o. male with significant past medical history of Past Medical History Diagnosis Date Hyperlipidemia Hypertension Diabetes mellitus type II Asthma Thyroid disease Anemia who presented by ambulance from [facility]. [...] WITH [employer]; KIDSUNEMPLOYED BEFORE WORKED AT [employer] IN [place] NONE ETOH QUIT 15 YEARS AGODRUGS: USES [...] WITH [employer]; KIDSUNEMPLOYED BEFORE WORKED AT [employer] IN [place] NONE ETOH QUIT 15 YEARS AGODRUGS: USES [...] 1413 Date of Service: 04/03/12831 Status: Signed Stick Feeder: Adeola Claros MD (Physician) [facility]: Hospitalist Progress Note Hospital Day: LOS: 1 day SUBJECTIVE Patient Summary: 47 yo male who presented by ambulance from [facility]. Was there at 04/01 at [...] Procedure Component Value Units Date/Time Urine Culture [[id number]] Collected:04/02/12228 Specimen Information:Urine Updated:04/03/121324 Specimen Description CATHETERIZED URINE Specimen Description Result: Testing performed at [facility] [place] [address] CULTURE NO GROWTH 1 DAY CULTURE Result: Testing performed at [facility], [address] [place] [address] REPORT STATUS PENDING Results Procedure Component Value Units Date/Time Urine Culture [[id number]] Collected:04/02/12228 Specimen Information:Urine Updated:04/03/121324 Specimen Description CATHETERIZED URINE Specimen Description Result: Testing performed at [facility];[address] [place] [address] CULTURE NO GROWTH 1 DAY CULTURE Result: Testing performed at [facility], [address] [place] [address], [place] [address] REPORT STATUS PENDING Urine eosinophils [[id number]] Collected:04/02/12 1530 URINE EOSINOPHILS NO EOSINOPHILS SEEN % Updated:04/03/12 1315 Type and Cross [[id number]] Collected:04/02/12 012 Specimen Information:Blood Updated:04/03/12 1309 ARM BAND NUMBER [id number] ARM BAND NUMBER Result: Testing performed at [facility];[address] [place] [address];[place] [address] ABO/RH(D) O POSITIVE ABO/RH(D) Result: Testing performed at [facility];[address] [place] [address];[place] [address] ANTIBODY SCREEN NEGATIVE ANTIBODY SCREEN Result: Testing performed at [facility];[address] [place] [address];[place] [address] UNIT NUMBER [id number] BLOOD COMPONENT TYPE LEUKODEPLETED PC UNIT DIVISION 00 STATUS OF UNIT ISSUED,FINAL TRANSFUSION STATUS OK TO TRANSFUSE CROSSMATCH RESULT COMPATIBLE UNIT NUMBER [id number] BLOOD COMPONENT TYPE LEUKODEPLETED PC UNIT DIVISION 00 STATUS OF UNIT ISSUED,FINAL TRANSFUSION STATUS OK TO TRANSFUSE CROSSMATCH RESULT COMPATIBLE UNIT NUMBER [id number] BLOOD COMPONENT TYPE LEUKODEPLETED PC UNIT DIVISION 00 STATUS OF UNIT ALLOCATED TRANSFUSION STATUS OK TO TRANSFUSE CROSSMATCH RESULT COMPATIBLE UNIT NUMBER [id number] BLOOD COMPONENT TYPE LEUKODEPLETED PC UNIT DIVISION 00 STATUS OF UNIT ALLOCATED TRANSFUSION STATUS OK TO TRANSFUSE CROSSMATCH RESULT COMPATIBLE Hemoglobin and hematocrit [[id number]] Collected:04/03/121214 Updated:04/03/12 1223 Protein electrophoresis [[id number]] (Abnormal) Collected:04/02/12 112 Specimen Information:Blood Updated:04/03/12 113 TOTAL PROTEIN,SERUM 5.3 (L) g/dL ALBUMIN 2.7 [...] SPEP Interpretation SEE BELOW Treponema pallidum reflex [[id number]] Collected:04/02/121125 TREP PALLIDUM BY EIA NEGATIVE Updated:04/03/12 0951 Hemoglobin and hematocrit [[id number]] (Abnormal) Collected:04/03/12921 HGB 7.9 (L) g/dL Updated:04/03/12 0935 HCT 23.1 (L) % PTH, intact and calcium [[id number]] (Abnormal) Collected:04/02/12 112 Specimen Information:Blood Updated:04/03/12926 CALCIUM 6.1 (L) mg/dL PTH,INTACT 255 (H) pg/mL Free T4 [[id number]] (Abnormal) Collected:04/03/12 050 FREE T4 0.6 (L) ng/dL Updated:04/03/12902 CPK [[id number]] (Abnormal) Collected:04/03/12 050 CPK 1219 (H) U/L Updated:04/03/12902 Glycohemoglobin A1c [[id number]] (Abnormal) Collected:04/03/12504 Specimen Information:Blood Updated:04/03/12 07 HEMOGLOBIN A1C 5.4 % ESTIMATED AVG GLUCOSE 108 (H) mg/dL Comprehensive metabolic panel [[id number]] (Abnormal) Collected:04/03/12504 Specimen Information:Blood Updated:04/03/12638 SODIUM 134 [...] 25 U/L EGFR 4 (L) mL/min/1.73m2 Magnesium [[id number]] Collected:04/03/12504 Specimen Information:Blood Updated:04/03/12638 MAGNESIUM 2.1 mg/dL Phosphorus [[id number]] (Abnormal) Collected:04/03/12504 Specimen Information:Blood Updated:04/03/12638 PHOSPHORUS 9.8 (HH) mg/dL TSH [[id number]] (Abnormal) Collected:04/03/12504 Specimen Information:Blood Updated:04/03/12638 TSH 16.60 (H) uIU/mL aPTT [[id number]] (Abnormal) Collected:04/03/12504 Specimen Information:Blood Updated:04/03/12627 APTT 36 (H) seconds Protime-INR [[id number]] Collected:04/03/12504 Specimen Information:Blood Updated:04/03/12627 INR 1.3 CBC w/auto diff (reflex to manual) [[id number]] (Abnormal) Collected:04/03/12504 Specimen Information:Blood Updated:04/03/12617 WBC 8.4 [...] 1.4 (H) K/uL BASOPHILS ABS 0.0 K/uL [place] I/Lambda LC RATI [[id number]] Collected:04/02/12 1126 [place] I 875 mg/dL Updated:04/03/12 0449 Lambda 463 mg/dL RASHID/LAMBDA RATIO 1.89 Sodium, urine, random [[id number]] (Abnormal) Collected:04/02/12 1530 Specimen Information:Urine Updated:04/02/12 1712 UR SODIUM,RANDOM 46 (L) mmol/L HGB and HCT [[id number]] (Abnormal) Collected:04/02/12 1643 HGB 8.5 (L) g/dL Updated:04/02/12 1705 HCT 25.0 (L) % Hepatitis panel, chronic [[id number]] (Abnormal) Collected:04/02/12 112 Hep A Total Ab REACTIVE (A) Updated:04/02/12 1644 HEP B SURFACE AG NON REACTIVE HEP B CORE AB,TOTAL NON REACTIVE HEP B SURFACE ANTIBODY <0.50 IV HEPATITIS C NON REACTIVE HEPATITIS INTERP Result: Current or past HAV infection. No serologic evidence of HCV infection or HBV infection or vaccination. Vitamin D,25 hydroxy [[id number]] (Abnormal) Collected:04/02/12 112 Specimen Information:Blood Updated:04/02/12 1603 VITAMIN D,25 HYDROXY <12 (L) ng/mL RA titer [[id number]] Collected:04/02/12 112 Specimen Information:Blood Updated:04/02/12 1555 RA TITER <10 IU/mL CBC w/auto diff (reflex to manual) [[id number]] (Abnormal) Collected:04/02/12 112 Specimen Information:Blood Updated:04/02/12 1236 WBC 8.8 K/uL [...] K/uL BASOPHILS ABS 0.0 K/uL HIV rapid [[id number]] Collected:04/02/121125 HIV RAPID NON REACTIVE Updated:04/02/127 Magnesium [[id number]] Collected:04/02/121125 Specimen Information:Blood Updated:04/02/121225 MAGNESIUM 2.3 mg/dL Phosphorus [[id number]] (Abnormal) Collected:04/02/121125 Specimen Information:Blood Updated:04/02/121225 PHOSPHORUS 11.8 (HH) mg/dL Uric acid [[id number]] Collected:04/02/121125 Specimen Information:Blood Updated:04/02/121225 URIC ACID 8.2 mg/dL CPK [[id number]] (Abnormal) Collected:04/02/121125 Specimen Information:Blood Updated:04/02/121225 CPK 1373 (H) U/L Iron panel [[id number]] (Abnormal) Collected:04/02/121125 Specimen Information:Blood Updated:04/02/121225 IRON 55 ug/dL TIBC 144.00 (L) ug/dL IRON % SAT 38 % Ferritin [[id number]] Collected:04/02/121125 Specimen Information:Blood Updated:04/02/121225 FERRITIN 139 ng/mL C-reactive protein [[id number]] (Abnormal) Collected:04/02/121125 CRP 15.0 (H) mg/dL Updated:04/02/121225 Comprehensive metabolic panel [[id number]] (Abnormal) Collected:04/02/121125 Specimen Information:Blood Updated:04/02/121225 SODIUM 137 [...] 4 (L) mL/min/1.73m2 C3 and C4 complement [[id number]] Collected:04/02/12 112 COMPLEMENT C3 94 mg/dL Updated:04/02/12 122 COMPLEMENT C4 16.3 mg/dL Sedimentation rate, automated [[id number]] (Abnormal) Collected:04/02/121125 Specimen Information:Blood Updated:04/02/12 122 ESR 52 (H) mm/Hr ANCA panel(reflexive) [[id number]] Collected:04/02/121125 Specimen Information:Blood Updated:04/02/12 113 Glomerular basement membrane Ab [[id number]] Collected:04/02/121125 Specimen Information:Blood Updated:04/02/12 113 POCT glucose [[id number]] Collected:04/02/12 0125 GLUCOSE,POC SCREEN 67 mg/dL Updated:04/02/12 043 POCT glucose [[id number]] (Abnormal) Collected:04/02/12 0214 GLUCOSE,POC SCREEN 110 (H) mg/dL Updated:04/02/12 043 POCT glucose [[id number]] Collected:04/02/12 0256 GLUCOSE,POC SCREEN 95 mg/dL Updated:04/02/12 0434 POCT glucose [[id number]] (Abnormal) Collected:04/02/12 0402 GLUCOSE,POC SCREEN 102 (H) mg/dL Updated:04/02/12 043 POCT glucose [[id number]] (Abnormal) Collected:04/02/12 0031 GLUCOSE,POC SCREEN 29 (LL) mg/dL Updated:04/02/12433 Salicylate (Aspirin) Level [[id number]] (Abnormal) Collected:04/02/12 023 Specimen Information:Blood Updated:04/02/12 031 SALICYLATE 2.6 (L) mg/dL Urine Drug Screen [[id number]] (Abnormal) Collected:04/02/12228 Specimen Information:Urine Updated:04/02/12250 AMPHETAMINE POSITIVE (A) OPIATES NEGATIVE BARBITUATES NEGATIVE PCP NEGATIVE BENZODIAZEPINE NEGATIVE THC NEGATIVE COCAINE NEGATIVE TRICYCLIC ANTIDEPRESS NEGATIVE ACETAMINOPHEN/PARACET POSITIVE (A) METHAMPHETAMINES POSITIVE (A) METHADONE NEGATIVE Urine Microscopic [[id number]] (Abnormal) Collected:04/02/12228 Specimen Information:Urine Updated:04/02/12250 WBC 6-10 /hpf RBC 16-25 /hpf EPITHELIAL 6-10 /lpf BACTERIA TRACE (A) Mucus, UA 1+ Crystals 3+ /hpf Carbamazepine [[id number]] (Abnormal) Collected:04/02/1239 DATE OF LAST DOSE UNKNOWN Updated:04/02/12229 TIME OF LAST DOSE UNKNOWN CARBAMAZEPINE LEVEL <0.5 (L) ug/mL POC arterial CG4+ [[id number]] (Abnormal) Collected:04/02/12202 pH, Art 7.148 (LL) Updated:04/02/12211 POC PCO2 23 (L) mmHg POC p02 171 (H) mmHg POC LACTATE 0.6 mmol/L POC HCO3 8 (L) mmol/L POC TCO2 9 (L) mEq/L POC BASE DEFICIT 21 (H) mmol/L POC S02 99 (H) % POC FIO2 32 % Cardiac Panel [[id number]] (Abnormal) Collected:04/02/1239 WBC 9.7 K/uL Updated:04/02/12125 RBC [...] fine reticular markings are seen along the ruib phery of the lungs bilaterally in the [...] Date of Service: 04/02/12 1023 Status: Signed Stick Feeder: Erin Angel RD (Cardiology Teacher) Pt on droplet precautions. Attempted to visit [...] later today. Erin Angel RD, CD, Inpatient Cardiology Teacher 04/02/2012 10:26 AM onversion Transaction , Provider Unknown - 04/02/2012 8:45 AM PDT Progress Notes by Gianna Ann RPH at 04/02/12 0845 Author: Gianna Ann RPH Service: (none) Author Type: Pharmacist Filed: 04/02/1245 Date of Service: 04/02/12844 Status: Signed Stick Feeder: Gianna Ann [facility] (Pharmacist) Renal Dosing Monitoring: Carol Potter 47 y.o. male Pharmacy dosing for renal function per Dr. Trujillo Medication(s): Pepcid Plan per protocol: Medication / Dose: Est CrCl ~6.3 ml/min Will change Pepcid to daily dosing for poor renal function Pharmacy will continue monitoring patient for appropriate dosing per renal function. 04/02/2012 8:42 AM Pharmacist: GIANNA ANN edina , Adeola Willoughby MD - 04/02/2012 8:13 AM PDT Progress Notes by Aedola Claros MD at 04/02/12812 Author: Adeola Claros MD Service: Hospitalist Author Type: Physician Filed: 04/02/12 1601 Date of Service: 04/02/12812 Status: Addendum Stick Feeder: Adeola Claros MD (Physician) Related Notes: Original Note by Adeola Claros MD (Physician) filed at 04/02/12 1549 47 yo male who presented by ambulance from [facility]. Was there at 04/01 at [...] original. H&P by Neli Trujillo MD at 04/02/12 316 Author: Neli Trujillo MD Service: Hospitalist Author Type: Physician Filed: 04/02/12446 Date of Service: 04/02/12347 Status: Addendum Stick Feeder: Neli Trujillo MD (Physician) Related Notes: Original Note by Neli Trujillo MD (Physician) filed at 04/02/12 2972 [facility]: Hospitalist Admission History & Physical Pt: Carol Potter AGE/SEX: 47 y.o. male ROOM: 04/02 PCP: Ashly Quick MD, : 1965 TODAY'S DATE: 04/02/2012 Date of Admission: 04/02/2012 Chief Complaint: Chest pain History of Present Illness: The patient is a 47 y.o. male with significant past medical history of Past Medical History Diagnosis Date Hyperlipidemia Hypertension Diabetes mellitus type II Asthma Thyroid disease Anemia who presented by ambulance from [facility]. Was there at 04/01 at [...] calcium carbonate supplementation, metformin. Cont bicarbona te drip. Dr. Timmons contacted by Dr. Kan will [...] psychostimulant dependence, continuous - discussed risks with rita t and seems to understand at this point. Reemphasize and need PCP fci Hyperkalemia- has received Ca Gluconate, Insulin, D50, [...] Consult* by Trevor Escobar DO at 04/03/12 2777 Author: Trevor Escobar DO Service: (none) Author Type: Physician Filed: 04/03/12 1532 Date of Service: 04/03/12 1500 Status: Signed Stick Feeder: Trevor Escobar DO (Physician) [facility]: Infectious Disease Initial Consult Note Date of Admission: 04/02/2012 Reason for Consultation: Rash, renal failure Requesting Physician: Leyda Infectious Disease History Obtained From: patient, chart review [...] admitted to recent methamphetamine use, but de nies having had a history of long-term methamphetamine [...] WITH [employer]; KIDSUNEMPLOYED BEFORE WORKED AT [employer] [place] [employer]/ [employer] COURSESMOKE NONE ETOH QUIT 15 YEARS AGODRUGS: [...] to follow with you. TREVOR ESCOBAR, DO 04/03/2012 rSara morton MD - 04/02/2012 6:50 PM PDT Consult* by Sara Monge MD at 04/02/121849 Author: Sara Monge MD Service: (none) Author Type: Physician Filed: 04/02/121905 Date of Service: 04/02/121849 Status: Signed Stick Feeder: Sara Monge MD (Physician) [facility]: Gastroenterology Initial Consult Note Date of [...] about 1/2 hour prior to arrival to [facility]. His chest pain was resolved with NTG. [...] of this patient. SARA MONGE MD 04/02/2012 rif, Hi Oliveros - 04/02/2012 10:00 AM PDTFormatting of this note might be different from the origi nal. Consults by Juan Timmons MD at 04/02/12 1000 Author: Juan Timmons MD Service: Nephrology Author Type: Physician Filed: 04/02/12 8412 Date of Service: 04/02/12 1000 Status: Signed Stick Feeder: Juan Timmons MD (Physician) [facility]: NEPHROLOGY CONSULT Note Carol Potter 47 y.o. [id number] male Ashly Quick MD, MD Hospital [...] disease Anemia who presented by ambulance from [facility]. Was there at 04/01 at [...] WITH [employer]; KIDSUNEMPLOYED BEFORE WORKED AT [employer] [place] [employer]/ [employer] COURSESMOKE NONE ETOH QUIT 15 YEARS AGODRUGS: [...] SCREEN 29 (*) 65 - 99 mg/dL [facility] CARD PANEL W/O TRP (ED ONLY) Collection [...] AM Component Value Range ARM BAND NUMBER [id number] ABO/RH(D) O POSITIVE ANTIBODY SCREEN NEGATIVE UNIT NUMBER [id number] UNIT NUMBER Value: Testing performed at [facility];[address] [place] [address];[place] [address] BLOOD COMPONENT TYPE Value: LEUKODEPLETED PC Testing performed at [facility];[address] [place] [address];[place] [address] UNIT DIVISION Value: 00 Testing performed at [facility];[address] [place] [address];[place] [address] STATUS OF UNIT Value: ISSUED Testing performed at [facility];[address] [place] [address];[place] [address] TRANSFUSION STATUS OK TO TRANSFUSE CROSSMATCH RESULT COMPATIBLE UNIT NUMBER [id number] BLOOD COMPONENT TYPE LEUKODEPLETED PC UNIT DIVISION [...] drip Low k diet Watch k level closley Telemetry Lab Results Component Value Date K [...] Notes by Salima Rodriguez RN at 04/02/12 0605 Author: Salima Rodriguez RN Service: (none) Author Type: Registered Nurse Filed: 04/02/12604 Date of Service: 04/02/12604 Status: Signed Stick Feeder: Salima Rodriguez RN (Registered Nurse) Patient sleeping at this time in NAD. Salima Rodriguez RN 04/02/12604 onver quique Transaction, Provider Unknown - 04/02/2012 3:52 AM PDT ED Notes by Salima Rodriguez RN at 04/02/12351 Author: Salima Rodriguez RN Service: (none) Author Type: Registered Nurse Filed: 04/02/12351 Date of Service: 04/02/12351 Status: Signed Stick Feeder: Salima Rodriguez RN (Registered Nurse) Hospitalist at bedside. Salima Rodriguez RN 04/02/12351 onver quique Transaction, Provider Unknown - 04/02/2012 1:54 AM PDT ED Notes by Salima Rodriguez RN at 04/02/12153 Author: Salima Rodriguez RN Service: (none) Author Type: Registered Nurse Filed: 04/02/12153 Date of Service: 04/02/12153 Status: Signed Stick Feeder: Salima Rodriguez RN (Registered Nurse) RT called for ABG Salima Rodriguez RN 04/02/12153 onver quique Transaction, Provider Unknown - 04/02/2012 1:25 AM PDT ED Notes by Chidi Amaro RN at 04/02/12124 Author: Chidi Amaro RN Service: (none) Author Type: Registered Nurse Filed: 04/02/12126 Date of Service: 04/02/12124 Status: Signed Stick Feeder: Chidi Amaro RN (Registered Nurse) Critical result of 8 on lab CO2 was called to ED by Vickie in laboratory at time 0125. Noti fied Dr Kan of critical value. Chidi Amaro RN 04/02/12126 onver quique Transaction, Provider Unknown - 04/02/2012 1:20 AM PDT ED Notes by Salima Rodriguez RN at 04/02/12119 Author: Sailma Rodriguez RN Service: (none) Author Type: Registered Nurse Filed: 04/02/12143 Date of Service: 04/02/12119 Status: Signed Stick Feeder: Salima Rodriguez RN (Registered Nurse) Patient placed on contact precautions, sign placed on door and isolation cart outside room. Salima Rodriguez RN 04/02/12143 onver quique Transaction, Provider Unknown - 04/02/2012 1:05 AM PDT ED Notes by Chidi Amrao RN at 04/02/12104 Author: Chidi Amaro RN Service: (none) Author Type: Registered Nurse Filed: 04/02/12106 Date of Service: 04/02/12104 Status: Signed Stick Feeder: Chidi Amaro RN (Registered Nurse) Critical result of hgb 6.4, hct 19.4 was called to ED by Rowena in laboratory at time 0105. Notified Dr. Kan of critical value. Chidi Amaro RN 04/02/12106 hKimber cosby DO - 04/02/2012 12:49 AM PDTFormatting of this note might be different from the o riginal. ED Provider Notes by Kimber Kan DO at 04/02/1248 Author: Kimber Kan DO Service: (none) Author Type: Physician Filed: 04/03/12 0243 Date of Service: 04/02/1248 Status: Signed Stick Feeder: Kimber Kan DO (Physician) Procedure Orders: 1. Critical Care [[id number]] ordered by Kimber Kan DO at 04/03/12 0241 [facility] Department of Emergency Medicine Pre-arrival Provider: Another ED Provider Name: Dr. Oro ([facility]) Pertinent History and Concerns: CC was chest [...] Patient presents with Electrolyte Imbalance Presented at [facility] last night 04/01 at 2100 complaining of chest pain. Found to have hyperkalemia, anemia and renal failure. Anemia Chest Pain 12:49 AM. Carol Potter is a 47 y.o. male who presented to [facility] with a complaint of belinda st pain. [...] WITH [employer]; KIDSUNEMPLOYED BEFORE WORKED AT [employer] IN [email or web address] COURSESMOKE NONE ETOH QUIT 15 YEARS AGODRUGS: [...] presents to ED as a transfer from [facility]. The pt was initially seen [...] AM Order was placed to have Dr. Arif paged at 2:30 AM. The pt's UDS is positive for methamphe tamines. 3:03 AM Discussed the case with Dr. Timmons, sales planning analyst. He requests that the pt placed on bicarb dr torres, 3 amp and 1 liter of D5 [...] No previous ED visits for review in [facility]. Laboratory Evaluation Results Procedure Component Value Ref Range Date/Time Salicylate (Aspirin) Level [[id number]] (Abnormal) Collected:04/02/12231 Order Status:Completed Updated:04/02/12311 Specimen Information:Blood SALICYLATE 2.6 (L) 2.8 - 20.0 mg/dL Urine Drug Screen [[id number]] (Abnormal) Collected:04/02/12228 Order Status:Completed Updated:04/02/12250 Specimen Information:Urine AMPHETAMINE POSITIVE (A) NEGATIVE OPIATES NEGATIVE NEGATIVE BARBITUATES NEGATIVE NEGATIVE PCP NEGATIVE NEGATIVE BENZODIAZEPINE NEGATIVE NEGATIVE THC NEGATIVE NEGATIVE COCAINE NEGATIVE NEGATIVE TRICYCLIC ANTIDEPRESS NEGATIVE NEGATIVE ACETAMINOPHEN/PARACET POSITIVE (A) NEGATIVE METHAMPHETAMINES POSITIVE (A) NEGATIVE METHADONE NEGATIVE NEGATIVE Urine Microscopic [[id number]] (Abnormal) Collected:04/02/12228 Order Status:Completed Updated:04/02/12250 Specimen Information:Urine WBC 6-10 0 - 5 /hpf RBC 16-25 0 - 5 /hpf EPITHELIAL 6-10 /lpf BACTERIA TRACE (A) NONE SEEN Mucus, UA 1+ Crystals 3+ /hpf POC clinitek 10 [[id number]] (Abnormal) Collected:04/02/12233 Order Status:Completed Updated:04/02/12236 Color, UA YELLOW Clarity, UA TURBID Glucose, UA NEGATIVE NEGATIVE mg/dL Bilirubin, UA NEGATIVE NEGATIVE Ketones, UA NEGATIVE NEGATIVE mg/dL Spec Grav, UA 1.020 1.001 - 1.035 Blood, UA MODERATE (A) NEGATIVE pH, UA 5.0 4.6 - 8.0 Protein, UA 100 (A) NEGATIVE mg/dL Urobilinogen, UA 0.2 <1.1 mg/dL Nitrite, UA NEGATIVE NEGATIVE WBC, UA NEGATIVE NEGATIVE Carbamazepine [[id number]] (Abnormal) Collected:04/02/1239 Order Status:Completed Updated:04/02/12229 DATE OF LAST DOSE UNKNOWN TIME OF LAST DOSE UNKNOWN CARBAMAZEPINE LEVEL <0.5 (L) 4.0 - 12.0 ug/mL Cardiac Panel [[id number]] (Abnormal) Collected:04/02/1239 Order Status:Completed Updated:04/02/12125 WBC 9.7 [...] ng/mL CK-MB Index 5.6 POC cardiac troponin [[id number]] Collected:04/02/1256 Order Status:Completed Updated:04/02/12111 POC CARDIAC TROPONIN [...] reviewed and validated by me. I ag sejal with its contents. DO Kimber Ludwig DO 04/03/12 0243 onversion Transacti on, Provider Unknown - 04/02/2012 12:31 AM PDTFormatting of this note might be different fro m the original. ED Notes by Chidi Amaro RN at 04/02/1230 Author: Chidi Amaro RN Service: (none) Author Type: Registered Nurse Filed: 04/02/1234 Date of Service: 04/02/1230 Status: Signed Stick Feeder: Chidi Amaro RN (Registered Nurse) Blood glucose <29. Chidi Amaro RN 04/02/1234 onver quique Transaction, Provider Unknown - 04/02/2012 12:27 AM PDT ED Notes by Chidi Amaro RN at 04/02/12 002 Author: Chidi Amaro RN Service: (none) Author Type: Registered Nurse Filed: 04/02/1226 Date of Service: 04/02/1226 Status: Signed Stick Feeder: Chidi Amaro RN (Registered Nurse) Bed:10
Expected date:
Expected time:
Means of arrival:
Comments:
[facility] tx onver quique Transaction, Provider Unknown - 04/02/2012 12:27 AM PDT ED Notes by Chidi Amaro RN at 04/02/1226 Author: Chidi Amaro RN Service: (none) Author Type: Registered Nurse Filed: 04/02/1234 Date of Service: 04/02/1226 Status: Signed Stick Feeder: Chidi Amaro RN (Registered Nurse) Patient obtunded upon arrival. EMS reports patient was alert and oriented at departure from [facility] and for approximately 30 minutes after. Chidi Amaro RN 04/02/1234 onver quique Transaction, Provider Unknown - 04/01/2012 11:17 PM PDT ED Notes by Chidi Amaro RN at 04/01/122316 Author: Chidi Amaro RN Service: (none) Author Type: Registered Nurse Filed: 04/01/122321 Date of Service: 04/01/122316 Status: Signed Stick Feeder: Chidi Amaro RN (Registered Nurse) Per Emilia at [facility] ED: Patient presented to ED at 2100 complaining of "tight" chest pain. Vital signs stable at th at time. Transferring to [facility] with diagnosis of acute renal failure, hyperkalemia, anemia. Hx diabetes, HTN, heart disease Potassium 7.3, creatinine 7.29, H&H 7.4, 23.5. Myoglobin 15, troponin 0.03 18g right AC Given at [facility]: 324mg ASA PO Nitro x2 with complete chest pain relief 45 grams kayexalate PO 1 amp bicarb IVP 1 gram calcium gluconate IVP 10 units regular insulin IVP 1 amp D50 IVP Albuterol nebulizer Vital signs prior to transport: 140/48, HR 84, RR 16, 100% room air. A&O, but "agitated," per Emilia. Chidi Amaro RN 04/01/12 9115 docume nted in this encounter Miscellaneous Notes Op Note - Oskar Meyer MD - 04/10/2012 4:13 PM PDTFormatting of this note might be differen t from the original. Op Note signed by Oskar Meyer MD at 04/15/12 7189 Author: Oskar Meyer MD Service: (none) Author Type: Physician Filed: 04/15/12 6072 Date of Service: 04/10/12 1613 Status: Signed Stick Feeder: Oskar Meyer MD (Physician) CAROL POTTER Date of : 1965 PREOPERATIVE DIAGNOSIS Acute renal failure with need for dialysis access. POSTOPERATIVE DIAGNOSIS Acute renal failure with need for dialysis access. PROCEDURE Right internal jugular PermCath placement under ultrasound guidance. SURGEON Oskar Meyer MD DASHBOARD DEVELOPER None. ANESTHESIA Local with moderate sedation. ESTIMATED [...] condition. There were no apparent complications. P/ A/jrb/[id number] OSKAR MEYER MD p Note - Oskar Meyer MD - 04/10/2012 3:04 PM PDT Brief Op Note by Oskar Meyer MD at 04/10/12 1504 Author: Oskar Meyer MD Service: Vascular Surgery Author Type: Physician Filed: 04/10/12 150 Date of Service: 04/10/121503 Status: Signed Stick Feeder: Oskar Meyer MD (Physician) [facility]: Vascular Surgery Brief Op Note Pre-operative Diagnosis: ARF and need for dialysis access Post-operative Diagnosis: Same Procedure(s): Right IJ permacath placement under ultrasound guidance Surgeon: Oskar Meyer MD Microstrategy Architect(s): None Anesthesia: Moderate sedation and Local anesthesia [...] Service: (none) Author Type: Registered Nurse Filed: 04/05/121432 Date of Service: 04/05/121413 Status: Signed Stick Feeder: Shanelle Zepeda RN (Registered Nurse) [facility]: Wound Care Consult Note Hospital Day: LOS: 3 days Post-Op Day: * No surgery found * Patient Summary: Pt with full body rash he has had for two years asked by Dr. Wheeler t o see pt for suggestions. Wound #1: Plaques [...] Shanelle Gaines RN 2:14 PM 04/05/2012 iscel lanejyoti - Conversion Transaction, Provider Unknown - 04/02/2012 8:24 AM PDTFormatting of th is note might be different from the original. Wound Photo by Elsie Pantoja RN at 04/02/12823 Author: Elsie Pantoja RN Service: (none) Author Type: Registered Nurse Filed: 04/02/12824 Date of Service: 04/02/12823 Status: Signed Stick Feeder: Elsie Pantoja RN (Registered Nurse) Pt has [...] LAB | | Testing performed at [facility];[address] [facility] [place] [address] | | + + + + +---------+ [...] LAB | | Testing performed at [facility] | | | [address];[place] [address] SPECIAL REQUESTS | | | LEFT HAND | | | Testing performed at [facility];[address] [facility];[place] [address] CULTURE | | | NO GROWTH IN 5 DAYS. | | | Testing performed at [facility] | | | [facility];[place] [address] REPORT STATUS | | | 04/20/2012 FINAL [...] LAB | | Testing performed at [facility];[address] [place] [address];[place] [address] | | + + + + +---------+ [...] 87.47 ml D-E Excursion: 2.04 cm E-F [place]: 0.07 | | | m/s EPSS: 1.21 [...] TV A Lenard: 0.53 m/s TV Dec [place]: 6.33 | | | m/s2 TV Dec Time: 150.03 ms TV E Lenard: 0.94 m/s TV E/A Ratio: | | | 1.76 Nuclear Weapons Custodian: PAUL Authenticated by: Giovany Everett MD | [...] (A-L): 40.32 | | ml/m2LAAs A2C: 23.95 th3XTDQW A-L A2C: 79.86 mlLALs A2C: 6.09 cmLAAs A4C: 25.15 | | sg2JBCZC A-L A4C: 85.78 mlLALs A4C: 6.26 cmAo Diam: 3.79 cmAV Cusp: 2.35 cmLA | | Diam: 5.00 cmLA/Ao: 1.31%FS: 27.35 %EDV(Teich): 166.76 mlEF(Teich): 52.45 | | %ESV(Teich): 79.28 mlIVSd: 1.28 cmIVSs: 1.43 cmLVIDd: 5.80 cmLVIDs: 4.21 | | cmLVPWd: 1.38 cmLVPWs: 1.48 cmSV(Teich): 87.47 mlD-E Excursion: 2.04 cmE-F | | Horm[place]os: 0.07 m/sEPSS: 1.21 cmHR: 66.51 BPMAV maxP.54 mmHgAV meanP.02 | | mmHgAV Vmax: 1.46 m/Suyapa Vmean: 1.07 m/Suyapa VTI: 30.65 cmAVA Vmax: 3.14 cm2AVA | | (VTI): 3.18 rs1ZRBY Dopp: 3.15 l/hzxo1FJXV Dopp: 6.56 l/minHR: 67.34 BPMLVOT | | [...] | | VTI: 25.98 cmMVA (VTI): 3.75 xb2Vqjffm e': 0.06 m/sSeptal E/e': 19.82Lateral e': | [...] A Lenard: 0.53 | | m/sTV Dec Horm[place]: 6.33 m/s2TV Dec Time: 150.03 msTV E Lenard: 0.94 m/sTV E/A Ratio: | | 1.76 Nuclear Weapons Custodian: KVWAuthenticated by: Giovany ESPINOSAeport Date/Time: 04-13-2012 | | 17:46:53 | |EF(Teich): [...] | |D-E Excursion: 2.04 cm | |E-F Horm[place]ueros: 0.07 m/s | |EPSS: 1.21 cm | [...] A Lenard: 0.53 m/s | |TV Dec [place]orm[place]: 6.33 m/s2 | |TV Dec Time: 150.03 ms | |TV E Lenard: 0.94 m/s | |TV E/A Ratio: 1.76 | | | |Nuclear Weapons Custodian: KVW | |Authenticated by: Giovany Everett MD [...] | Testing performed | | | at [facility];[address] [place] [address];[place] [address] SPECIAL REQUESTS | | | L WRIST | | | Testing performed at [facility];[address] [place] [address];[place] [address] | | | CULTURE NO GROWTH IN 5 DAYS. | | | Testing performed | | | at [facility];[address] [place] [address];[place] [address] REPORT STATUS | | | 04/19/2012 FINAL [...] | Testing performed | | | at [facility];[address] [place] [address];[place] [address] SPECIAL REQUESTS | | | L ARM | | | Testing performed at [facility];[address] [place] [address];[place] [address] | | | CULTURE NO GROWTH IN 5 DAYS. | | | Testing | | | performed at [facility];[address] [place] [address];[place] [address] REPORT STATUS | | | 04/19/2012 FINAL [...] | Testing performed | | | at [facility];[address] [place] [address] SPECIAL REQUESTS | | | L WRIST | | | Testing performed at [facility];[address] [place] [address] | | | GRAM STAIN GRAM POSITIVE [...] Tan ON 4RP AT 1140 ON 04/14/12 [facility] RESULTS REPEATED | | | Testing performed | | | at [facility];[address] [place] [address] CULTURE | | | STAPHYLOCOCCUS AUREUSAbnormal | | | GROWTH IN TWO OF TWO BOTTLESAbnormal | | | TIME TO | | | DETECTION: 0.71 DAYS | | | Testing performed at [facility], [address] [place], [place] | | | [address] REPORT STATUS 04/15/2012 | | | FINAL [...] | Testing performed at | | | [facility];[address] [place] [address];[place] [address] SPECIAL REQUESTS | | | ART | | | Testing performed at [facility];[address] [place] [address];[place] [address] | | | GRAM STAIN GRAM POSITIVE COCCI | | | SEEN ON GRAM STAIN FROM AEROBIC BOTTLE SMEAR RESULTS CALLED TO AND | | | READ BACK BY: DEIDRE Mccullough IN [facility] AT 0611 ON [id number] BY GEM | | | Testing performed at [facility] | | | [facility] [place] [address] CULTURE | | | STAPHYLOCOCCUS AUREUSAbnormal | | | GROWTH IN ONE OF TWO BOTTLESAbnormal | | | TIME TO DETECTION: 0.65 | | | DAYS Testing | | | performed at [facility], [address] [place] [address] | | | REPORT STATUS 04/17/2012 FINAL [...] | Testing performed | | | at [facility];[address] [place] [address];[place] [address] SPECIAL REQUESTS | | | RHAND | | | Testing performed at [facility];[address] [place] [address];[place] [address] | | | GRAM STAIN GRAM POSITIVE COCCI IN | | | CLUSTERS SEEN IN AEROBIC BOTTLE SMEAR RESULTS CALLED TO AND READ BACK | | | BY: DAVID Díaz/[facility] 192 JCMAbnormal | | | GRAM POSITIVE COCCI IN CLUSTERS SEEN ON SMEAR OF | | | ANAEROBIC BOTTLE | | | CALLED TO PERLA/DAVID Díaz ON 04/14/12 AT 0657 BY READBACK | | | Testing performed at [facility] | | | [facility] [place] [address] CULTURE | | | STAPHYLOCOCCUS AUREUSAbnormal | | | TIME TO DETECTION: 0.67 DAYS | | | GROWTH IN TWO OF TWO | | | BOTTLESAbnormal | | | VANCOMYCIN TERRANCE IS LESS THAN OR EQUAL TO 0.5 Mcg/mL | | | Testing performed at [facility], [address] | | | [place] [address] REPORT STATUS | | | 04/15/2012 FINAL [...] LAB | | Testing performed at [facility];[address] | | | [facility] [place] [address] CULTURE | | | >15 COLONIES STAPHYLOCOCCUS AUREUSAbnormal | | | THIS S. AUREUS IS SUSCEPTIBLE TO | | | METHICILLINAbnormal | | | Testing performed at [facility], [address] [place], [place] | | | [address] REPORT STATUS 04/12/2012 | | | FINAL [...] SURGEON Oskar Meyer MD | | | DASHBOARD DEVELOPER None. ANESTHESIA Local with moderate sedation. | [...] + + | Khalif Palm Cee - 02/14/2019 4:18 AM PDT | | [...] Oskar Meyer MD | | | | DASHBOARD DEVELOPER | | None. | | | | [...] SURGEON Oskar Meyer MD | | | DASHBOARD DEVELOPER None. ANESTHESIA Local with moderate sedation. | [...] Oskar Meyer MD | | | | DASHBOARD DEVELOPER | | None. | | | | [...] | Testing performed | | | at [facility];[address] [place] [address];[place] [address] SPECIAL REQUESTS | | | RAC | | | Testing performed at [facility];[address] [place] [address];[place] [address] | | | GRAM STAIN GRAM POSITIVE COCCI IN | | | CLUSTERS SEEN ON SMEAR FROM AEROBIC BOTTLEAbnormal | | | SMEAR RESULTS CALLED TO AND READ | | | BACK BY: YAZMIN DUNCAN, 04/10/12 AT 2356 BY | | | Testing performed at [facility];[address] [place] [address] | | | [facility];[place] [address] CULTURE | | | STAPHYLOCOCCUS AUREUSAbnormal | | | GROWTH IN ONE OF TWO BOTTLESAbnormal | | | TIME TO DETECTION: 0.31 DAYS | | | VANCOMYCIN TERRANCE IS | | | EQUAL TO ONE. | | | Testing performed at [facility], [address] [place], [place] | | | [address] REPORT STATUS 04/13/2012 | | | FINAL [...] | Testing performed | | | at [facility];[address] [facility] [place] [address] SPECIAL REQUESTS | | | LAC | | | Testing performed at [facility];[address] [place] [address];[place] [address] | | | GRAM STAIN GRAM POSITIVE COCCI | | | SEEN ON GRAM STAIN FROM AEROBIC AND ANAEROBIC BOTTLES SMEAR RESULTS | | | CALLED TO AND READ BACK BY: LINDA Mccullough IN P AT 1340 ON [id number] BY | | | CRK Testing | | | performed at [facility];[address] [facility] [place] [address] CULTURE | | | STAPHYLOCOCCUS AUREUSAbnormal | | | STREPTOCOCCUS | | | ANGINOSUSAbnormal | | | TIME TO DETECTION: 0.85 DAYS | | | GROWTH IN TWO OF TWO BOTTLESAbnormal | | | Testing performed at [facility], [address] | | | [place] [address] REPORT STATUS | | | 04/15/2012 FINAL [...] Rad Conversion - 02/14/2019 4:18 AM PDT HISTORY:Renal [...] Rad Conversion - 02/14/2019 4:18 AM PDT CAROLDIANELYS GARZA CHEST 1 VIEW04/10/2012 8:19 | | [...] At | + + + | CASE: [id number] PATIENT: CAROL POTTER Surgical Pathology Report | [...] | | | submitted in cassette A1. fam:nabor MICROSCOPIC EXAMINATION: | | | Histologic sections [...] performance | | | characteristics determined by [facility] | | | Pathology. These tests [...] | | | investigational or for research. [facility] are | | | certified under [...] GIVEN Testing | | | performed at [facility];[address] [place] [address];[place] [address] CULTURE | | | >100,000 CFU/ML STAPHYLOCOCCUS | | | AUREUSAbnormal | | | Testing performed at [facility], [address] [place], [place] | | | [address] REPORT STATUS 04/09/2012 | | | FINAL [...] Favio Hughes MD on Apr 07 | 2011 8:45AM | |3. Mild bilateral [...] GIVEN Testing | | | performed at [facility];[address] [facility] [place] [address] CULTURE | | | >100,000 CFU/ML STAPHYLOCOCCUS | | | AUREUSAbnormal | | | Testing performed at [facility], [address] [place], [place] | | | [address] REPORT STATUS 04/08/2012 | | | FINAL [...] | Testing performed | | | at [facility];[address] [place] [address];[place] [address] SPECIAL REQUESTS | | | RAC | | | Testing performed at [facility];[address] [place] [address];[place] [address] | | | CULTURE NO GROWTH IN 5 DAYS. | | | Testing | | | performed at [facility];[address] [place] [address];[place] [address] REPORT STATUS | | | 04/09/2012 FINAL [...] LAB | | Testing performed at [facility];[address] | | | [facility] [place] [address] AFB STAIN | | | NO ACID FAST BACILLI SEEN | | | Testing performed at [facility], [facility] [address] [facility], | | | [place] [address] CULTURE | | | NO ACID FAST BACILLI ISOLATED | | | Testing performed at [facility], [address] [place] [address], | | | [place] [address] REPORT STATUS | | | 05/16/2012 FINAL [...] | Testing performed | | | at [facility];[address] [place] [address];[place] [address] SPECIAL REQUESTS | | | LAC | | | Testing performed at [facility];[address] [place] [address];[place] [address] | | | CULTURE NO GROWTH IN 5 DAYS. | | | Testing | | | performed at [facility];[address] [place] [address];[place] [address] REPORT STATUS | | | 04/09/2012 FINAL [...] Conversion - 02/14/2019 4:18 AM PDT CAROL [id number] 47 years MaleXR CHEST | | 2 VIEW FRONTAL AND QNKUARG2304/02/2012 1:00 PM INDICATION: Shortness of breath | [...] | Testing performed at | | | [facility];[address] [facility] [place] [address] CULTURE | | | NO GROWTH 2 DAYS | | | Testing performed at [facility], [address] [facility], | | | [place] [address] REPORT STATUS | | | 04/04/2012 FINAL [...]
--- OUTSIDE RECORDS SUMMARY | ~2020-03-11 | XMS | Encounter Summary ---
Demographics + + + | Address | [address] | | | [place] [address] | + + + | Home Phone [...] Author + + + | Author | [facility] | | | and [place] | + + + | Organization | [facility] | | | [...] Team Providers + +------+ + | Care Evening Sitter Name | Role | Phone | + +------+ + | Andry Deng DO | PCP | | + +------+ + Reason for Visit +--------+ + | Reason | Comments | +--------+ + | Other | Med list from [facility] 01/2720 | +--------+ + Encounter Details +--------+ + + + + | Date | Type | Department | Care Team | Description | +--------+ + + + + | 02/18/ | Documentati | [facility] | Pete, | Other (Med list from | | 2019 | on | NEPHROLOGY MALATHI | Markus Riggins | [facility] 01/2720) | | | | [address] | Solar System Installer | | | | | [address] [place] | | | | | | [address] | | | | | | [phone] | | | +--------+ + + + [...] + + documented as of this encounter Functional Status + + + [...]
--- OUTSIDE RECORDS SUMMARY | ~2020-03-11 | XMS | Encounter Summary ---
Demographics + + + | Address | [address] | | | [place] [address] | + + + | Home Phone [...] Team Providers + +------+ + | Care Student Driving Instructor Name | Role | Phone | + +------+ + | Andry Deng DO | PCP | | + +------+ + Encounter Details +--------+ + + + + | Date | Type | Department | Care Team | Description | +--------+ + + + + | 03/29/ | Orders Only | [facility] | Conversion | | | 2013 | | INFECTIOUS DISEASE | Transaction, | | | | | [address] | Provider Unknown | | | | | [place], [place] | | | | | | [address] | (Fax) | | | | | [phone] | | | +--------+ + + + [...] | CBC WITH MANUAL | Routin | 2014 | | Results for this | | DIFFERENTIAL | e | 12:00 AM | | procedure are in the | | | | PDT | | results section. | + +--------+ + + + | SEDIMENTATION RATE, | Routin | 2014 | | Results for this | | AUTOMATED | e | 12:00 AM | | procedure are in the | | | | PDT | | results section. | + +--------+ + + + | C-REACTIVE PROTEIN | Routin | 2014 | | Results for this | | | e | 12:00 AM | | procedure are in the | | | | PDT | | results section. | + +--------+ + + + documented in this encounter Results Sedimentation rate, automated (2014 12:00 AM PDT) + +-------+ + + + | Component | Value | Ref Range | Performed | Pathologist | | | | | At | Signature | + +-------+ + + + | Sed Rate | 19 | | EXTERNAL | | | | [...] +---------+ + + CBC with Manual Differential (2014 12:00 AM PDT) + +-------+ + + + | Component | Value | Ref Range | Performed | Pathologist | | | | | At | Signature | + +-------+ + + + | WBC | 5.7 | 10 | EXTERNAL | | | | | | LAB | | + +-------+ + + + | Non- | 3.62 | 10 | EXTERNAL | | | Red Blood | | | LAB | | | Cells | | | | | | Counted | | | | | + +-------+ + + + | Hemoglobin | 10.8 | g/dL | EXTERNAL | | | | | | LAB | | + +-------+ + + + | Hematocrit, | 33.3 | % | EXTERNAL | | | POC | | | LAB | | + +-------+ + + + | MCV | 92.0 | fL | EXTERNAL | | | | | | LAB | | + +-------+ + + + | MCH | 30 | pg | EXTERNAL | | | | | | LAB | | + +-------+ + + + | MCHC | 32 | g/dL | EXTERNAL | | | | | | LAB | | + +-------+ + + + | RDW-CV | 16.9 | % | EXTERNAL | | | | | | LAB | | + +-------+ + + + | Platelet | 362 | K/ L | EXTERNAL | | | Count | | | LAB | | | Plasma | | | | | + +-------+ + + + | MPV | | fL | EXTERNAL | | | | | | LAB | | + +-------+ + + + | % Segmented | 55.6 | % | EXTERNAL | | | | | | LAB | | | Neutrophils | | | | | + +-------+ + + + | % | 25.5 | % | EXTERNAL | | | Lymphocytes | | | LAB | | + +-------+ + + + | % Monocytes | 10.2 | % | EXTERNAL | | | | | | LAB | | + +-------+ + + + | % | 7.5 | % | EXTERNAL | | | [...] | + +---------+ + + C-Reactive Protein (2014 12:00 AM PDT) + +-------+ + + + | Component | Value | Ref Range | Performed | Pathologist | | | | | At | Signature | + +-------+ + + + | CRP | 8.2 | mg/dL | EXTERNAL | | | [...]
--- OUTSIDE RECORDS SUMMARY | ~2020-03-11 | XMS | Encounter Summary ---
Demographics + + + | Address | [address] | | | [place] [address] | + + + | Home Phone | | + + + | Preferred Language | Unknown | + + + | Marital Status | Unknown | + + + | Restorationist Affiliation | [id number] | + + + [...] Team Providers + +------+ + | Care Portfolio Management Marketing Name | Role | Phone | + +------+ + PCP | Unavailable | + +------+ + Encounter Details +--------+ + + + + | Date | Type | Department | Care Team | Description | +--------+ + + + + | 07/03/ | Hospital | [facility] | | | | 2010 | Encounter | MED CTR GENERIC OP | | | | | | CONV DEPT [address] | | | | | | [place], | | | | | | [place] [address] | | | | | | [phone] | | | +--------+ + + + [...]
--- OUTSIDE RECORDS SUMMARY | ~2020-03-11 | XMS | Encounter Summary ---
Demographics + + + | Address | [address] | | | [place] [address] | + + + | Home Phone [...] Team Providers + +------+ + | Care Awning Assembler Name | Role | Phone | + +------+ + | Andry Deng DO | PCP | | + +------+ + Encounter Details +--------+ + + + + | Date | Type | Department | Care Team | Description | +--------+ + + + + | 05/31/ | Orders Only | [facility] | Conversion | | | 2013 | | INFECTIOUS DISEASE | Transaction, | | | | | [address] | Provider Unknown | | | | | [place], [place] | | | | | | [address] | (Fax) | | | | | [phone] | | | +--------+ + + + [...] | EXTERNAL LAB: CBC | Routin | 05/31/2014 | | Results for this | | | e | 12:00 AM | | procedure are in the | | | | PST | | results section. | + +--------+ + + + | SEDIMENTATION RATE, | Routin | 05/31/2014 | | Results for this | | AUTOMATED | e | 12:00 AM | | procedure are in the | | | | PST | | results section. | + +--------+ + + + | C-REACTIVE PROTEIN | Routin | 05/31/2014 | | Results for this | | | e | 12:00 AM | | procedure are in the | | | | PST | | results section. | + +--------+ + + + documented in this encounter Results Sedimentation rate, automated (05/31/2014 12:00 AM PST) + +-------+ + + + | Component | Value | Ref Range | Performed | Pathologist | | | | | At | Signature | + +-------+ + + + | Sed Rate | 14 | 0 - 15 | EXTERNAL | [...] + +---------+ + + External Lab: CBC (05/31/2014 12:00 AM PST) + + + + + + | Component | Value | Ref Range | Performed | Pathologist | | | | | At | Signature | + + + + + + | WBC | 8.0 | 10 | EXTERNAL | | | | | | LAB | | + + + + + + | Non- | 4.01 (A) | 4.3 - 5.7 10 | EXTERNAL | | | Red Blood | | | LAB | | | Cells | | | | | | Counted | | | | | + + + + + + | Hemoglobin | 12.1 (A) | 13.5 - 18.0 | EXTERNAL | | | | | g/dL | LAB | | + + + + + + | Hematocrit, | 37.1 (A) | 41 - 50 % | EXTERNAL | | | POC | | | LAB | | + + + + + + | MCV | 92.5 | fL | EXTERNAL | | | | | | LAB | | + + + + + + | MCH | 30 | pg | EXTERNAL | | | | | | LAB | | + + + + + + | MCHC | 33 | g/dL | EXTERNAL | | | | | | LAB | | + + + + + + | Platelet | 219 | K/ L | EXTERNAL | | | Count | | | LAB | | | Plasma | | | | | + + + + + + | RDW-CV | 17.7 (A) | 10.5 - 15.0 % | [...] + + + | % Segmented | 72.3 | % | EXTERNAL | | | | | | LAB | | | Neutrophils | | | | | + + + + + + | % | 13.3 (A) | 24 - 44 % | EXTERNAL | | | Lymphocytes | | | LAB | | + + + + + + | % Monocytes | 6.2 | % | EXTERNAL | | | | | | LAB | | + + + + + + | % | 7.5 (A) | 0 - 6 % | [...] | + +---------+ + + C-Reactive Protein (05/31/2014 12:00 AM PST) + +---------+ + + + | Component | Value | Ref Range | Performed | Pathologist | | | | | At | Signature | + +---------+ + + + | CRP | 8.9 (A) | 0 - 5 mg/L | EXTERNAL | | | | | | LAB | | + +---------+ + + + [...]
--- OUTSIDE RECORDS SUMMARY | ~2020-03-11 | XMS | Encounter Summary ---
Demographics + + + | Address | [address] | | | [place] [address] | + + + | Home Phone | | + + + | Preferred Language | Unknown | + + + | Marital Status | Single | + + + | Catholic Affiliation | Unknown | + + + | Race | or | + + + | Ethnic Group | Not or | + + + Author + + + | Author | [facility] | + + + | Organization | [facility] [employer] [facility] | + + + | Address | [...] Team Providers + +------+ + | Care Wrap Yarn Sorter Name | Role | Phone | + +------+ + | Berenice Hicks | PCP | | + +------+ + Reason for Referral Diagnostic Testing (Routine) + +--------+ + + + + | Status | Reason | Specialty | Diagnoses / | Referred By | Referred To | | | | | Procedures | Contact | Contact | + +--------+ + + + + | Authorized | | Cardiology | Diagnoses | [place], | Car Echo | | | | | Type 2 | Makenna Wiley RN | [facility] [address] | | | | | diabetes | [address] | [address]ise [address]da | | | | | mellitus | [address] | | | | | with ESRD | [address] | Gerardo | | | | | (end-stage | [place], [place] | Building, 2nd | | | | | renal | [address] | floor | | | | | disease) | | [place], [place] | | | | | (HCC) | | [address] | | | | | Procedures | | Phone: | | | | | TRANSTHORACI | | [phone] | | | | | C | | | | | | | ECHOCARDIOGR | | | | | | | AM, ADULT | | | + +--------+ + + + + Diagnostic Testing (Routine) + +--------+ + + + + | Status | Reason | Specialty | Diagnoses / | Referred By | Referred To | | | | | Procedures | Contact | Contact | + +--------+ + + + + | Authorized | | Radiology | Diagnoses | [place], | Rad Nuc Med | | | | | Type 2 | Makenna Wiley RN | [facility] [address] | | | | | diabetes | [address] | Denise | | | | | mellitus | [place] | [address] | | | | | with ESRD | [address] | [place], | | | | | (end-stage | [place], [place] | Basement | | | | | renal | [address] | [place], [place] | | | | | disease) | | [address] | | | | | (HCC) | | Phone: | | | | | Procedures | | [phone] | | | | | NM | | Fax: | | | | | MYOCARDIAL | | [phone] | | | | | PERFUSION | | | | | | | (SPECT) | | | | | | | MULTIPLE | | | | | | | STUDIES WITH | | | | | | | | | | | | | | PHARMACOLOGI | | | | | | | C | | | + +--------+ + + + + Reason for Visit + +--------+ + | Reason | Onset | Comments | | | Date | | + +--------+ + | Pre-Transplant | 12/22/ | schedule remainder of eval | | Evaluation | 2020 | | + +--------+ + Encounter Details +--------+ + + + + | Date | Type | Department | Care Team | Description | +--------+ + + + + | 12/22/ | Telephone | Clinical | Makenna Sheldon, | Pre-Transplant | | 2020 | | Transplant Services | RN [address] | Evaluation (schedule | | | | [address] | [address] | remainder of eval) | | | | [address] [place], | [place], [place] | | | | | [place] [address] | [address] | | | | | [phone] | | | +--------+ + + + [...] Notes Telephone Encounter - Joanne Jha - 02/03/2020 2:55 PM PDTConfirmed with patient Kidney evaluation selection dates: Mar 22 - Mar 24. elephone Encounter - Makenna Ann RN - 01/27/2020 1:09 PM PDTPatient's unit called on behalf of patient. He was expecting to hear from us by now. Per chart he is still pending insurance auth. It looks lik e we may have that. Checking with [facility] on status. elephone Encounter - Makenna Sheldon RN - 12/23/2019 1:25 PM PDTPatient met with transplant nephrology and pharmacy last week. He we approved to move forward with the remainder of evaluation. Recall that he was originally scheduled for clini c and labs 11/11/19 but came for the labs, got lost, and went home without being seen in clin ic. Explained that the remainder of evlauation involves the following: Echo EKG Stress Test Abdominal US CXR Pelvic X-Ray Transplant Batter Scaler Consult Transplant Vascular Ultrasound Technologist Consult - in person if possible Transplant Education Class -online Reviewed with pt that support person is required to participate in the education class and Social Work Consult. Pt to bring His son Momo with him. Questions answered. Routing to [facility] for insurance auth. Once obtained, [facility] will call patient to schedule him. Orders entered per protocol. Dialysis: Runs MW, he will need to make arrangements for his dialysis to be adjusted the w north fork of evaluation in [place]. documented in this e ncounter Plan of Treatment +--------+ + + + [...] Rd | | | | | | [place], [place] | | | | | | [address] | | | | | | [phone] | | | | | | | [...] Rd | | | | | | [place], [place] | | | | | | [address] | | | | | | [phone] | | | | | | | | +--------+ + + + + | 03/23/ | Appointment | Radiology | Taiwo Marin | | | 2019 | | | MD Forrest [address] | | | | | | [address] | | | | | | [place], [place] | | | | | | [address] | | | | | | [phone] | | | | | | | | +--------+ + + + + | 03/23/ | Office | Social Work | Lina Rodriguez, | | | 2019 | Visit | | ORDER PLANNER [address] | | | | | | [address] | | | | | | [place], [place] | | | | | | [address] | | | | | | [phone] | | +--------+ + + + + | 03/24/ | Telephone-S | Nutrition | Debby Salvador, | | | 2019 | cheduled | | [address] | | | | | | [address] | | | | | | [place], [place] | | | | | | [address] | | | | | | [phone] | | | | | | | | +--------+ + + + + + +---------+--------+ + + | Name | Type | Priori | Associated Diagnoses | Order Schedule | | | | ty | | | + +---------+--------+ + + | NM MYOCARDIAL | Imaging | Routin | Type 2 diabetes | Expected: | | PERFUSION (SPECT) | | e | mellitus with ESRD | 03/22/2020, Expires: | | MULTIPLE STUDIES | | | (end-stage renal | 01/22/2021 | | WITH PHARMACOLOGIC | | | disease) (HCC) | | + +---------+--------+ + + | ECG TRACING FOR | ECG | Routin | Type 2 diabetes | Expected: 12/23/2019 | | STRESS NUCLEAR | | e | mellitus with ESRD | (Approximate), | | MEDICINE | | | (end-stage renal | Expires: 01/22/2021 | | | | | disease) ([facility]) | | + +---------+--------+ + + | TRANSTHORACIC | ECG | Routin | Type 2 diabetes | Ordered: 12/23/2019 | | ECHOCARDIOGRAM, | | e | mellitus with ESRD | | | ADULT | | | (end-stage renal | | | | | | disease) ([facility]) | | + +---------+--------+ + + | 12 LEAD ECG | ECG | Routin | Type 2 diabetes | Expected: 12/23/2019 | | | | e | mellitus with ESRD | | | | | | (end-stage renal | | | | | | disease) ([facility]) | | + +---------+--------+ + + | X-RAY CHEST 2 VIEW | Imaging | Routin | Type 2 diabetes | Expected: 03/22/2020 | | | | e | mellitus with ESRD | (Approximate), | | | | | (end-stage renal | Expires: 01/22/2021 | | | | | disease) ([facility]) | | + +---------+--------+ + + | US ABDOMEN COMPLETE | Imaging | Routin | Type 2 diabetes | Expected: 03/22/2020 | | | | e | mellitus with ESRD | (Approximate), | | | | | (end-stage renal | Expires: 01/22/2021 | | | | | disease) ([facility]) | | + +---------+--------+ + + | X-RAY PELVIS 1 VIEW | Imaging | Routin | Type 2 diabetes | Expected: 03/22/2020 | | | | e | mellitus with ESRD | (Approximate), | | | | | (end-stage renal | Expires: 01/22/2021 | | | | | disease) ([facility]) | | + +---------+--------+ + + documented as of this encounter Visit Diagnoses + + | Diagnosis | + + | Type 2 diabetes mellitus with ESRD (end-stage renal disease) ([facility]) - Primary Type II | | or unspecified type diabetes mellitus with renal manifestations, not stated as | | uncontrolled | + + | CKD (chronic kidney disease) requiring chronic dialysis (HCC) End stage renal disease | + + documented in this encounter"
--- OUTSIDE RECORDS SUMMARY | ~2020-03-11 | XMS | Encounter Summary ---
Demographics + + + | Address | [address] | | | [place] [address] | + + + | Home Phone [...] | Author | [facility] | | | and [place] | + + + | Organization | [facility] | | | and [...] Team Providers + +------+ + | Care Plugging Machine Operator Name | Role | Phone | + +------+ + PCP | Unavailable | + +------+ + Encounter Details +--------+ + + + + | Date | Type | Department | Care Team | Description | +--------+ + + + + | 01/21/ | Orders Only | [facility] | Provider, | | | 2018 | | SYSTEM GENERIC OP | [address] | | | | | CONVERSION [address] | [address] | | | | | [address] [place], [place] | [facility] [place] [place] [place] [address] | | | | | [address] | | | | | | [phone] | | | +--------+ + + + [...]
--- OUTSIDE RECORDS SUMMARY | ~2020-03-11 | XMS | Encounter Summary ---
Demographics + + + | Address | [address] | | | [place] [address] | + + + | Home Phone | | + + + | Preferred Language | Unknown | + + + | Marital Status | Single | + + + | Mormonism Affiliation | Unknown | + + + | Race | or | + + + | Ethnic Group | Not or | + + + Author + + + | Author | [facility] | + + + | Organization | [facility] [employer] [facility] | + + + | [...] Team Providers + +------+ + | Care Floor Sander Name | Role | Phone | [...] | Denise, 3rd floor | | disease) ([facility]LY [facility]) | | | | [place], [place] | | | | | | [address] | | | | | | [phone] | | | +--------+------+ + + + [...] +--------+ + + + + | 03/22/ Appointment | Cardiology | | | | 2019 | | | | | +--------+ + + + + | 03/22/ | Appointment | Radiology | Taiwo Marin | | | 2019 | | | MD Forrest [address] | | | | | | [address] | | | | | | [place], [place] | | | | | | [address] | | | | | | [phone] | | | | | | | | +--------+ + + + + | 03/22/ | Appointment | Cardiology | | | | 2019 | | | | | +--------+ + + + + | 03/22/ | Appointment | Radiology | Taiwo Marin | | | 2019 | | | MD [place] [address] | | | | | | [address] | | | | | | [place], [place] | | | | | | [address] | | | | | | [phone] | | | | | | | | +--------+ + + + + | 03/23/ | Appointment | Radiology | Taiwo Marin | | | 2019 | | | MD [place] [address] | | | | | | [address] | | | | | | [place], [place] | | | | | | [address] | | | | | | [phone] | | | | | | | | +--------+ + + + + | 03/23/ | Office | Social Work | Lina Rodriguez, | | | 2019 | Visit | | PRODUCER DIRECTOR [address] | | | | | | [address] | | | | | | [place], [place] | | | | | | [address] | | | | | | [phone] | | +--------+ + + + + | 03/24/ | Telephone-S | Nutrition | Debby Salvador, | | | 2019 | cheduled | | RD [address] | | | | | | [address] | | | | | | [facility] [place], [place] | | | | | | [address] | | | | | | [phone] | | | | | | | | +--------+ + + + + documented as of this encounter Procedures + +--------+ + + + | Procedure Name | Priori | Date/Time | Associated Diagnosis | Comments | | | ty | | | | + +--------+ + + + | MEASLES (TESSA) | Routin | 11/11/2019 | Type [...] section. | | | | | disease) ([facility]) | | + +--------+ + + + | HEPATITIS A AB, IGG | Routin | 11/11/2019 | Type 2 diabetes | Results for this | | | e | 2:07 PM | mellitus with ESRD | procedure are in the | | | | PDT | (end-stage renal | results section. | | | | | disease) ([facility]) | | + +--------+ + + + | DRUG SCREEN 9 PANEL, | Routin | 11/11/2019 | Type 2 diabetes | Results for this | | S/P,W/REFLEX QUANT | e | 2:07 PM | mellitus with ESRD | procedure are in the | | | | PDT | (end-stage renal | results section. | | | | | disease) ([facility]) | | + +--------+ + + + | C3 AMANDA | Routin | 11/11/2019 | Type 2 diabetes | Results for this | | | e | 2:07 PM | mellitus with ESRD | procedure are in the | | | | PDT | (end-stage renal | results section. | | | | | disease) ([facility]) | | + +--------+ + + + | AMANDA IGG | Routin | 11/11/2019 | Type 2 diabetes | Results for this | | | e | 2:07 PM | mellitus with ESRD | procedure are in the | | | | PDT | (end-stage renal | results section. | | | | | disease) ([facility]) | | + +--------+ + + + | HEPATITIS B SURFACE | Routin | 11/11/2019 | Type 2 diabetes | Results for this | | AG W/REFLEX IF | e | 2:07 PM | mellitus with ESRD | procedure are in the | | INDICATED | | PDT | (end-stage renal | results section. | | | | | disease) ([facility]) | | + +--------+ + + + | CBC AND AUTO DIFF | Routin | 11/11/2019 | Type 2 diabetes | Results for this | | | e | 2:07 PM | mellitus with ESRD | procedure are in the | | | | PDT | (end-stage renal | results section. | | | | | disease) ([facility]) | | + +--------+ + + + | CONFIRMATORY ABO/RH | Routin | 11/11/2019 | Type 2 diabetes | Results for this | | | e | 2:07 PM | mellitus with ESRD | procedure are in the | | | | PDT | (end-stage renal | results section. | | | | | disease) ([facility]) | | + +--------+ + + + | LIT HLA-DP LOW RES- | Routin | 11/11/2019 | Type 2 diabetes | | | KE | e | 2:07 PM | mellitus with ESRD | | | | | PDT | (end-stage renal | | | | | | disease) ([facility]) | | + +--------+ + + + | NAY QUIROZ VIRUS | Routin | 11/11/2019 | Type 2 diabetes | Results for this | | AB VCA IGG, SERUM | e | 2:07 PM | mellitus with ESRD | procedure are in the | | | | PDT | (end-stage renal | results section. | | | | | disease) ([facility]) | | + +--------+ + + + | QUANTIFERON TB GOLD, | Routin | 11/11/2019 | Type 2 diabetes | Results for this | | BLOOD | e | 2:07 PM | mellitus with ESRD | procedure are in the | | | | PDT | (end-stage renal | results section. | | | | | disease) ([facility]) | | + +--------+ + + + | LIT FLOW HLA II AB | Routin | 11/11/2019 | Type 2 diabetes | | | AG ID KE, BLOOD | e | 2:07 PM | mellitus with ESRD | | | | | PDT | (end-stage renal | | | | | | disease) ([facility]) | | + +--------+ + + + | LIT FLOW HLA I AB ID | Routin | 11/11/2019 | Type 2 diabetes | Results for this | | KE, BLOOD | e | 2:07 PM | mellitus with ESRD | procedure are in the | | | | PDT | (end-stage renal | results section. | | | | | disease) ([facility]) | | + +--------+ + + + | ANTIBODY ELUTION | Routin | 11/11/2019 | Type 2 diabetes | Results for this | | | e | 2:07 PM | mellitus with ESRD | procedure are in the | | | | PDT | (end-stage renal | results section. | | | | | disease) ([facility]) | | + +--------+ + + + | LIT HLA-B LOW RES-KE | Routin | 11/11/2019 | Type 2 diabetes | | | | e | 2:07 PM | mellitus with ESRD | | | | | PDT | (end-stage renal | | | | | | disease) ([facility]) | | + +--------+ + + + | LIT HLA-A LOW RES-KE | Routin | 11/11/2019 | Type 2 diabetes | | | | e | 2:07 PM | mellitus with ESRD | | | | | PDT | (end-stage renal | | | | | | disease) ([facility]) | | + +--------+ + + + | TERA HLA-C LOW RES-KE | Routin | 11/11/2019 | Type 2 diabetes | | | | e | 2:07 PM | mellitus with ESRD | | | | | PDT | (end-stage renal | | | | | | disease) ([facility]) | | + +--------+ + + + | TERA HLA-DQ LOW | Routin | 11/11/2019 | Type 2 diabetes | | | RES-KE | e | 2:07 PM | mellitus with ESRD | | | | | PDT | (end-stage renal | | | | | | disease) ([facility]) | | + +--------+ + + + | TERA RBC GROUP TX KE, | Routin | 11/11/2019 | Type 2 diabetes | | | BLOOD | e | 2:07 PM | mellitus with ESRD | | | | | PDT | (end-stage renal | | | | | | disease) ([facility]) | | + +--------+ + + + | LIT HLA-DR LOW | Routin | 11/11/2019 | Type 2 diabetes | | | RES-KE | e | 2:07 PM | mellitus with ESRD | | | | | PDT | (end-stage renal | | | | | | disease) ([facility]) | | + +--------+ + + + | CMV IGG AND IGM ABS, | Routin | 11/11/2019 | Type 2 diabetes | Results for this | | SERUM | e | 2:07 PM | mellitus with ESRD | procedure are in the | | | | PDT | (end-stage renal | results section. | | | | | disease) ([facility]) | | + +--------+ + + + | INR | Routin | 11/11/2019 | Type 2 diabetes | Results for this | | | e | 2:07 PM | mellitus with ESRD | procedure are in the | | | | PDT | (end-stage renal | results section. | | | | | disease) ([facility]) | | + +--------+ + + + | CBC, WITH | Routin | 11/11/2019 | Type 2 diabetes | Results for this | | DIFFERENTIAL | e | 2:07 PM | mellitus with ESRD | procedure are in the | | | | PDT | (end-stage renal | results section. | | | | | disease) ([facility]) | | + +--------+ + + + | VARICELLA ZOSTER | Routin | 11/11/2019 | Type 2 diabetes | Results for this | | IGG, SERUM | e | 2:07 PM | mellitus with ESRD | procedure are in the | | | | PDT | (end-stage renal | results section. | | | | | disease) ([facility]) | | + +--------+ + + + | MUMPS IGG AB, SERUM | Routin | 11/11/2019 | Type 2 diabetes | Results for this | | | e | 2:07 PM | mellitus with ESRD | procedure are in the | | | | PDT | (end-stage renal | results section. | | | | | disease) ([facility]) | | + +--------+ + + + | PSA TOTAL, | Routin | 11/11/2019 | Type 2 diabetes | Results for this | | SCREENING, SERUM | e | 2:07 PM | mellitus with ESRD | procedure are in the | | | | PDT | (end-stage renal | results section. | | | | | disease) ([facility]) | | + +--------+ + + + | NICOTINE & | Routin | 11/11/2019 | Type 2 diabetes | Results for this | | METABOLITES, SERUM | e | 2:07 PM | mellitus with ESRD | procedure are in the | | | | PDT | (end-stage renal | results section. | | | | | disease) ([facility]) | | + +--------+ + + + | COMPLETE METABOLIC | Routin | 11/11/2019 | Type 2 diabetes | Results for this | | SET | e | 2:07 PM | mellitus with ESRD | procedure are in the | | (NA,K,CL,CO2,BUN,CRE | | PDT | (end-stage renal | results section. | | AT,GLUC,CA,AST,ALT,B | | | disease) ([facility]) | | | BASHIR TOTAL,ALK | | [...] section. | | | | | disease) ([facility]) | | + +--------+ + + + | URINE, MICROSCOPIC | Routin | 11/11/2019 | Type 2 diabetes | Results for this | | EXAM | e | 2:07 PM | mellitus with ESRD | procedure are in the | | | | PDT | (end-stage renal | results section. | | | | | disease) ([facility]) | | + +--------+ + + + | HIV AB/AG SCREENING | Routin | 11/11/2019 | Type 2 diabetes | Results for this | | W/REFLEX TO CONFIRM | e | 2:07 PM | mellitus with ESRD | procedure are in the | | | | PDT | (end-stage renal | results section. | | | | | disease) ([facility]) | | + +--------+ + + + | RPR SERUM | Routin | 11/11/2019 | Type 2 diabetes | Results for this | | | e | 2:07 PM | mellitus with ESRD | procedure are in the | | | | PDT | (end-stage renal | results section. | | | | | disease) ([facility]) | | + +--------+ + + + | RUBELLA IGG AB, | Routin | 11/11/2019 | Type 2 diabetes | Results for this | | SERUM | e | 2:07 PM | mellitus with ESRD | procedure are in the | | | | PDT | (end-stage renal | results section. | | | | | disease) ([facility]) | | + +--------+ + + + | APTT (ACT. PART. | Routin | 11/11/2019 | Type 2 diabetes | Results for this | | THROMBO TIME) | e | 2:07 PM | mellitus with ESRD | procedure are in the | | | | PDT | (end-stage renal | results section. | | | | | disease) ([facility]) | | + +--------+ + + + | ANTIBODY | Routin | 11/11/2019 | Type 2 diabetes | Results for this | | IDENTIFICATION | e | 2:07 PM | mellitus with ESRD | procedure are in the | | | | PDT | (end-stage renal | results section. | | | | | disease) ([facility]) | | + +--------+ + + + | ANTIBODY SCREEN | Routin | 11/11/2019 | Type 2 diabetes | Results for this | | | e | 2:07 PM | mellitus with ESRD | procedure are in the | | | | PDT | (end-stage renal | results section. | | | | | disease) ([facility]) | | + +--------+ + + + | TYPE AND SCREEN | Routin | 11/11/2019 | Type 2 diabetes | Results for this | | | e | 2:07 PM | mellitus with ESRD | procedure are in the | | | | PDT | (end-stage renal | results section. | | | | | disease) ([facility]) | | + +--------+ + + + | ABO & RH TYPE | Routin | 11/11/2019 | Type 2 diabetes | Results for this | | | e | 2:07 PM | mellitus with ESRD | procedure are in the | | | | PDT | (end-stage renal | results section. | | | | | disease) ([facility]) | | + +--------+ + + + | CULTURE, URINE BACTI | Routin | 11/11/2019 | Type 2 diabetes | Results for this | | | e | 2:07 PM | mellitus with ESRD | procedure are in the | | | | PDT | (end-stage renal | results section. | | | | | disease) ([facility]) | | + +--------+ + + + | PHOSPHORUS, PLASMA | Routin | 11/11/2019 | Type 2 diabetes | Results for this | | | e | 2:07 PM | mellitus with ESRD | procedure are in the | | | | PDT | (end-stage renal | results section. | | | | | disease) ([facility]) | | + +--------+ + + + | HEPATITIS B SURFACE | Routin | 11/11/2019 | Type 2 diabetes | Results for this | | AB QUAL, SERUM | e | 2:07 PM | mellitus with ESRD | procedure are in the | | | | PDT | (end-stage renal | results section. | | | | | disease) ([facility]) | | + +--------+ + + + | HEPATITIS B CORE AB, | Routin | 11/11/2019 | Type 2 diabetes | Results for this | | SERUM | e | 2:07 PM | mellitus with ESRD | procedure are in the | | | | PDT | (end-stage renal | results section. | | | | | disease) ([facility]) | | + +--------+ + + + | HEPATITIS C VIRUS | Routin | 11/11/2019 | Type 2 diabetes | Results for this | | W/CONFIRMATION | e | 2:07 PM | mellitus with ESRD | procedure are in the | | | | PDT | (end-stage renal | results section. | | | | | disease) ([facility]) | | + +--------+ + + + | HEMOGLOBIN A1C, | Routin | 11/11/2019 | Type 2 diabetes | Results for this | | BLOOD | e | 2:07 PM | mellitus with ESRD | procedure are in the | | | | PDT | (end-stage renal | results section. | | | | | disease) ([facility]) | | + +--------+ + + + | BILIRUBIN DIRECT | Routin | 11/11/2019 | Type 2 diabetes | Results for this | | | e | 2:07 PM | mellitus with ESRD | procedure are in the | | | | PDT | (end-stage renal | results section. | | | | | disease) ([facility]) | | + +--------+ + + + | URIC ACID, PLASMA | Routin | 11/11/2019 | Type 2 diabetes | Results for this | | | e | 2:07 PM | mellitus with ESRD | procedure are in the | | | | PDT | (end-stage renal | results section. | | | | | disease) ([facility]) | | + +--------+ + + + | MAGNESIUM, PLASMA | Routin | 11/11/2019 | Type 2 diabetes | Results for this | | | e | 2:07 PM | mellitus with ESRD | procedure are in the | | | | PDT | (end-stage renal | results section. | | | | | disease) ([facility]) | | + +--------+ + + + | LDH TOTAL, PLASMA | Routin | 11/11/2019 | Type 2 diabetes | Results for this | | | e | 2:07 PM | mellitus with ESRD | procedure are in the | | | | PDT | (end-stage renal | results section. | | | | | disease) ([facility]) | | + +--------+ + + + | CHOLESTEROL TOTAL, | Routin | 11/11/2019 | Type 2 diabetes | Results for this | | PLASMA | e | 2:07 PM | mellitus with ESRD | procedure are in the | | | | PDT | (end-stage renal | results section. | | | | | disease) ([facility]) | | + +--------+ + + + [...] + | [facility] | [address] | [place] [address] | | | [place] | | | | + + + [...] [facility] | [address] | [place] [address] | | | SERVICES, | [address] [...] | + + + + + | [facility] | [address] | [place] [address] | | | SERVICES, | [address] [...] [facility] | [address] | [place] [address] | | | SERVICES, | [address] [...] [facility] | [address] | [place] [address] | | | SERVICES, | [address] [...] + + | [facility] | [address] [facility] | [place] [address] | | | SERVICES, | [address] [...] [facility] | [address] | [place] [address] | | | SERVICES, CORE | [address] [...] LABORATORY | [address] | [place] [address] | | | SERVICES, CORE | PARK [...] | + + + + + | [facility] | [address] | [place] [address] | | | SERVICES, | [address] [...] [facility] | [address] | [place] [address] | | | UNA, | [address] [...] | | | | | determined by [facility] | | | | | | Laboratories. See | | | | | | Compliance Statement B: | | | | | | [email or web address] | | | | | | by [employer],[address] | | | | | | Josef [place]oya [facility] | | | | | | [address] | | | | | | [phone].[employer] System[employer]. | | | | | | Mio su MD, | | | | | | Lab. Director | | | | + + + + + + | AMPHETAMINE | Negative | Cutoff 30 ng/mL | [facility] | | | S, S/P, | | [...] [facility] | [address] | [place], [place] | | | UN[facility] [place] | | [address] | | + + + + + [...] | | | | | determined by [facility] | | | | | | Laboratories. See | | | | | | Compliance Statement B: | | | | | | [email or web address] | | | | | | by [employer],[address] | | | | | | Josef [place]oya [facility] [place] | | | | | | [address] | | | | | | [phone].[employer]. | | | | | | Mio [...] [facility] | [address] | [place], [place] | | | [facility] [place] [place] | | [address] | | + + + + + [...] | + + + + + | [facility] | [address] | [place] [address] | | | SERVICES, CORE | [address] [...] [facility] | | considered for monitoring terminal press operator glycemic control in patients with: | LABORATORY [...] [facility] | [address] | [place] [address] | | | SERVICESSPECIAL | [address] | | | | [...] [facility] | | | NIL | by [employer],[address] | | REG UNIV | | | | Josef Montoya, [facility] | | PTH - INT[facility] | | | | [address] | | | | | | [phone]. | | | | | | Mio [...] | | | | | | --- [place], 2009 | | | | | | (http://www.cdc.gov/mmwr | | | | | | /preview/mmwrhtml/la1930 | | | | | | [email or web address].htm), [...] [facility] | [address] | [place], [place] | | | UN[facility] [place] [facility] [place] | | [address] | | + + + + + [...] by | | | | | | [employer],[address] | | | | | | Josef Montoya, [facility] | | | | | | [address] | | | | | | [phone].Sift. | | | | | | Mio [...] [facility] | [address] | [place], [place] | | | UN[facility] [place] - [place] | | [address] | | + + + + + [...] [facility] | | | | | | [facility],[address] [place] [address] | | | | | | [place] [address] | | | | | | [phone]. | | | | | | Mio [...] [facility] | [address] | [place], [place] | | | UN[facility] - [place] | | [address] | | + + + + + [...] + | [facility] | [address] | [place] [address] | | | [place] | | | | + + + [...] by | | | | | | [employer],[address] | | | | | | [facility] | | | | | | [address] | | | | | | [phone].Sift. | | | | | | Mio [...] [facility] | [address] | [place], [place] | | | UN[facility] [place] - [place] | | [address] | | + + + + + [...] [facility] | [address] | [place] [address] | | | SERVICES, CORE | [address] [...] not detected. The performance of the | [facility] | | ED TRANSPORTER HIV Combo test, with or without confirmation, was not | LABORATORY | | tested in pediatric patients less than 2 years of age. [facility] | SERVICES, | | guidelines recommend virologic assays (i.e. HIV 1 VIRAL LOAD) that | [facility] + | | directly detect HIV for diagnosis of HIV infection in infants younger | [facility] | | than 2 years. | | + + + + + + + + | Performing | Address | City/State/[facility] | Phone Number | | Organization | | | | + + + + + | [facility] | [address] [facility] | [place] [address] | | | SERVICES, SPECIAL | [address] [...] [facility] | [address] | [place] [address] | | | SERVICES, CORE | PARK [...] [facility] | [address] | [place] [address] | | | SERVICES, CORE | PARK [...] [facility] | [address] | [place] [address] | | | SERVICES, CORE | [address] [...] + | [facility] | [address] | [place] [address] | | | [place] | | | [...] | + + + + + | [facility] - | [address] | [place] [address] | | | [place] | | | [...] | | | | Repeat testing in -14 | | | | | | | [...] by | | | | | | [employer],[address] | | | | | | Josef Montoya, [facility] | | | | | | [address] | | | | | | [phone].Sift. | | | | | | Mio [...] [facility] | [address] | [place], [place] | | | UN[place] - [place] | | [address] | | + + + + + [...] [place] | | | | | | [address] | | | | | | [phone].aruplab. | | | | | | Mio [...] [facility] | [address] | [place], [place] | | | UN[facility] [place] [place] | | [address] | | + + + + + [...] [facility] | [address] | [place] [address] | | | SERVICES, CORE | [address] [...] | [facility] | | | GRAVITY | [place] performed by | | LABORATORY | | [...] [facility] | [address] | [place] [address] | | | SERVICES, CORE | PARK [...] [facility] | [address] | [place] [address] | | | SERVICES, CORE | PARK [...] [facility] | [address] | [place] [address] | | | SERVICES, CORE | [address] | | | + + + + + CHOLESTEROL TOTAL, PLASMA (11/11/2019 2:07 PM PDT) + +-------+ + + + | Component | Value | Ref Range | Performed | Pathologist | | | | | At | Signature | + +-------+ + + + | CHOLESTEROL | 155 | <200 mg/dL | DIO | | | (LAB) | | | [...] [facility] | [address] | [place] [address] | | | SERVICES, CORE | PARK [...] [facility] | [address] | [place] [address] | | | SERVICES, CORE | PARK [...] [facility] | [address] | [place] [address] | | | SERVICES, CORE | [address] [...] [facility] | [address] | [place] [address] | | | SERVICES, CORE | PARK [...] | + + + + + | [facility] | [address] | [place] [address] | | | SERVICES, CORE | PARK [...] [facility] | [address] | [place] [address] | | | SERVICES, CORE | [address] [...] | | | LABORATORY | | | ENGLISH | | | SERVICES, | | | [...] MDRD equation recommended by the National | [facility] | | Kidney Disease Education Program. Estimated [...] [facility] | [address] [facility] | [place] [address] | | | SERVICES, CORE | [address] [...] + + | [facility] - | [address], | [place] [address] | | | IMMUNOGENETICS/TRANS | [address] | | | | [facility]ANT LAB[facility]ATORY | | | | + + + + + LIT HLA-A LOW FARAZ-DERRELL (11/11/2019 2:07 PM PDT) + + | Specimen | + + | Blood - Blood | | (substance) | + + + + + + + | Performing | Address | City/State/Zipcode | Phone Number | | Organization | | | | + + + + + | [facility] - | [address] | [place], [place] | | | IMMUNOGENETICS/TRANS | [address] [...] - | [address] | [place], [place] | | | IMMUNOGENETICS/TRANS | [address] [...] + + | [facility] - | [address] | [place] [address] | | | IMMUNOGENETICS/TRANS | [address] [...] [facility] - | [address] | [place] [address] | | | IMMUNOGENETICS/TRANS | [address] | | | | PLANT LABORATORY | | | | + + + + + LIT HLA-DP LOW RES- DERRELL (11/11/2019 2:07 PM PDT) + + | Specimen | + + | Blood - Blood | | (substance) | + + + + + + + | Performing | Address | City/State/Zipcode | Phone Number | | Organization | | | | + + + + + | [facility] - | [address] | [place] [address] | | | IMMUNOGENETICS/TRANS | [address] [...] + + | [facility] - | [address] | [place], [place] [address] | | | IMMUNOGENETICS/TRANS | [address] [...] [facility] - | [address] | [place], [place] [id number] | | | IMMUNOGENETICS/TRANS | [address] [...] [facility] - | [address] | [place] [address] | | | IMMUNOGENETICS/TRANS | [address] [...]
--- OUTSIDE RECORDS SUMMARY | ~2020-03-11 | XMS | Encounter Summary ---
Demographics + + + | Address | [address] | | | [place] [address] | + + + | Home Phone [...] + + + | Author | [facility] [employer] [facility] | + + + | Organization | [facility] [employer] [facility] | + + + | Address | [...] Team Providers + +------+ + | Care Cnc Specialist Name | Role | Phone | + +------+ + | Berenice Hicks | PCP | | + +------+ + Reason for Visit + +--------+ + | Reason | Onset | Comments | | | Date | | + +--------+ + | Evaluation of | 12/15/ | | | response to | 2019 [...] | | | [address] | [facility] | medications | | | | [address] | [place] [address] | | | | | Physician's | [phone] | | | | | Pavilion, 2nd floor | | | | | | [place], [place] | | | | | | [address] | | | | | | [phone] | | | +--------+ + + + [...] Telephone Encounter - Chirag Vogel PharmD - 12/16/2019 1:11 PM PDT Pharmacy Services: Pre-Transplant Medication Reconciliation Enrique Potter is a 54 year old male with a history of DMT2 who is being evaluated for Ki dney transplantation. The patient s most recent medication information was obtained from p atient and [employer] chart Wt Readings from Last 1 Encounters: 12/16/19 84.8 kg (186 lb 14.4 oz) Ht Readings from Last 1 Encounters: 12/16/19 66.25" Last 1 Encounter BMI Readings: Date BMI 12/16/2019 29.94 kg/m2 Patient Active Problem List Diagnosis Date Noted History of peptic ulcer disease 11/10/2019 Priority: 3 Overview Note: 2011 GIB requiring transfusions Chronic systolic (congestive) heart failure (HCC) 11/10/2019 Priority: 3 HLD (hyperlipidemia) 11/10/2019 Priority: 3 History of MRSA bacteremia, 01/201911/10/2019 Priority: 4 Overview Note: MRSA infection 01/2018 Treated with Vancomycin x 6 weeks. 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 Gout, unspecified 11/10/2019 Priority: 5 Overview Note: Secondary renal hyperparathyroidism (HCC) 11/10/2019 Priority: 5 Chronic obstructive asthma (HCC) 11/10/2019 Priority: 5 Eczema of both upper extremities 11/10/2019 Priority: 6 Polysubstance abuse (HCC) 11/10/2019 Priority: 6 Overview Note: Amphetamine and other psychostimulant dependence, continuous 04/02/2012 Blind left eye 11/10/2019 Priority: 6 H/O arthroscopy of knee 11/10/2019 Priority: 8 Secondary hypertension due to renal disease 12/13/2019 Overview Note: RED CELL ANTIBODIES - allow additional time for crossmatch 11/12/2019 Overview Note: Patient is sensitized against red cell antigen "K". Approximately 90% of units are expect ed to be compatible. Allow at least 2-3 hours for completion of crossmatch. History of blood transfusion 11/10/2019 Overview Note: 2011 Bacteremia due to methicillin susceptible Staphylococcus aureus (MSSA) 11/10/2019 Overview Note: 2013 Sepsis- PNA DVT (deep venous thrombosis) ([facility]) 11/10/2019 Overview Note: Per chart review X 3 Type 2 diabetes mellitus with ESRD (end-stage renal disease) ([facility]) Overview Note: KIDNEY, NEEDLE CORE BIOPSY (04/10/2012): -SEVERE NODULAR AND GLOBAL GLOMERULOSCLEROSIS CONSISTENT WITH DIABETIC NEPHROPATHY. -HYPERTENSIVE VASCULAR CHANGES. -SEVERE TUBULAR ATROPHY AND INTERSTITIAL FIBROSIS. CKD (chronic kidney disease) requiring chronic dialysis ([facility]) 04/10/2012 Overview Note: Biopsy proven DM End Stage Renal Disease 04/10/2012 current modality in center HD Current Access: Prior Access: [facility] Unit/Schedule: Pharmacy Preferences: [place] [address] [place] [address] Hours: E-Prescribing: Yes Allergies Allergen Reactions Azithromycin Rash Unknown Unknown [...] Rash Skin "melted" off Skin "melted" off Updated Outpatient Medications: Current Medication List Name Sig ACETAMINOPHEN 325 MG TABLET Take 650 mg by mouth every 6 hours as needed for Pain. ALBUTEROL SULFATE HFA 90 MCG/ACTUATION AEROSOL INHALER Inhale 2 puffs into the lungs every 4 (four) hours as needed for Wheezing. ALLOPURINOL 100 MG TABLET Take 100 mg by mouth daily. Indications: Primary Gout AMLODIPINE 10 MG TABLET Take 10 mg by mouth Daily. ASPIRIN 81 MG TABLET,DELAYED RELEASE Take 81 mg by mouth. CARVEDILOL 3.125 MG TABLET Take 2 tablets by mouth 2 (two) times daily with meals. ERGOCALCIFEROL (VITAMIN D2) 1,250 MCG (50,000 UNIT) CAPSULE Take 50,000 Units by mouth. FLUTICASONE 250 MCG-SALMETEROL 50 MCG/DOSE BLISTR POWDR FOR INHALATION Inhale 1 puff into t he lungs 2 (two) times daily. LANTHANUM 1,000 MG CHEWABLE TABLET LEVOTHYROXINE 75 MCG TABLET Take 75 mcg by mouth every morning (before breakfast). WARFARIN 2.5 MG TABLET LABORATORY VALUES Chemistry Lab Results Lab Test Name Results Date/Time GLU 132 11/11/19 BUN 27 11/11/19 CR 5.67 11/11/19 PO4 3.6 11/11/19 MG 2.6 11/11/19 CA 9.6 11/11/19 TBILI 0.7 11/11/19 AST 52 11/11/19 ALT 49 11/11/19 K 4.6 11/11/19 ALB 3.7 11/11/19 CBC Lab Results Lab Test Name Results Date/Time WBC 5.33 11/11/19 HCT 38.7 11/11/19 PLT 216 11/11/19 Functional Status good Medical comorbities include DM? Yes - glucose control can be more difficult on post-Tx Obesity? Yes - increased risk of rubi-operative complications (wound dehiscence, hernia, D VT, PNA, graft dysfunction, etc) Last 1 Encounter BMI Readings: Date BMI 12/16/2019 29.94 kg/m2 Hypertension- Yes-can worsen on medications post-transplant. Potential for histologic recurrence Yes - unknown Current drug use? No Prior or current use of Etoh? No Mental Health: No Gastroparesis? No Active infection? No Increased operative risk? No Current smoker/chewer? No Hx of heart disease? No pending Hx of malignancy? No Hx of stroke? No Dialysis ? Yes - HD Medication adherence issues? No Suitable for tx? Yes - good candidate Major DDI: No Drug allergy: Allergies Allergen Reactions Azithromycin Rash Unknown Unknown [...] Rash Skin "melted" off Skin "melted" off Assessment/Recommendations: 1. Medication review was completed. Recipient is a high risk (but acceptable) candidate fo r a kidney transplant. The potential risks and benefits of transplantation were reviewed wi th the patient. PLAN: We will continue the evaluation and discuss in the Transplant Selection Conference. A total of 20 minutes were spent reviewing the patient's medications for pre-transplant jemima luation. For any further questions regarding this information contact pharmacy, pager #[phone] Thank you, Chirag Vogel documented in [...] Rd | | | | | | [place], [place] | | | | | | [address] | | | | | | [phone] | | | | | | | [...] Rd | | | | | | [place], [place] | | | | | | [address] | | | | | | [phone] | | | | | | | | +--------+ + + + + | 03/23/ | Appointment | Radiology | Taiwo Marin | | | 2019 | | | MD [facility] | | | | | | [address] | | | | | | [place], [place] | | | | | | [address] | | | | | | [phone] | | | | | | | | +--------+ + + + + | 03/23/ | Office | Social Work | Lina Rodriguez, | | | 2019 | Visit | | [facility] [address] | | | | | | [address] | | | | | | [place], [place] | | | | | | [address] | | | | | | [phone] | | +--------+ + + + + | 03/24/ | Telephone-S | Nutrition | Debby Salvador, | | | 2020 | manan | | [facility] [address] [facility] | | | | | | [address] | | | | | | [place] | | | | | | [address] | | | | | | [phone] | | | | | | | | +--------+ + + + + documented as of this encounter Visit Diagnoses Not on filedocumented in this encounter
--- OUTSIDE RECORDS SUMMARY | ~2020-03-11 | XMS | Encounter Summary ---
Demographics + + + | Address | [address] | | | [place] [address] | + + + | Home Phone | | + + + | Preferred Language | Unknown | + + + | Marital Status | Single | + + + | Jewish Affiliation | Unknown | + + + | Race | or | + + + | Ethnic Group | Not or | + + + Author + + + | Author | [facility] [employer] [facility] | + + + | Organization | [facility] [employer] [facility] | + + + [...] Team Providers + +------+ + | Care Quality Control Projectionist Name | Role | Phone | + +------+ + | Berenice Hicks | PCP | | + +------+ + Reason for Visit + +--------+ + | Reason | Onset | Comments | | | Date | | + +--------+ + | Transplant | 11/24/ | LIT HLA Typing - Recipient | | | 2020 | | + [...] | | | | [address] | [facility] | | | | | Physician's | [place], [place] | | | | | Denise, [address] [place] [address] | [address] | | | | | [place], [place] | [phone] | | | | | [address] | | | | | | [phone] | | | +--------+ + + + [...] Rd | | | | | | [place], [place] | | | | | | [address] | | | | | | [phone] | | | | | | | [...] Rd | | | | | | [place], [place] | | | | | | [address] | | | | | | [phone] | | | | | | | | +--------+ + + + + | 03/23/ | Appointment | Radiology | Taiwo Marin | | | 2019 | | | MD [facility] | | | | | | [address] | | | | | | [place], [place] | | | | | | [address] | | | | | | [phone] | | | | | | | | +--------+ + + + + | 03/23/ | Office | Social Work | Lina Rodriguez, | | | 2019 | Visit | | [facility] [address] | | | | | | [address] | | | | | | [place], [place] | | | | | | [address] | | | | | | [phone] | | +--------+ + + + + | 03/24/ | Telephone-S | Nutrition | Debby Salvador, | | | 2019 | manan | | [address] | | | | | | [address] | | | | | | [place] | | | | | | [address] | | | | | | [phone] | | | | | | | | +--------+ + + + + documented as of this encounter Visit Diagnoses Not on filedocumented in this encounter"
--- OUTSIDE RECORDS SUMMARY | ~2020-03-11 | XMS | Encounter Summary ---
Demographics + + + | Address | [address] | | | [place] [address] | + + + | Home Phone | | + + + | Preferred Language | Unknown | + + + | Marital Status | Unknown | + + + | Religion Affiliation | [id number] | + + + [...] Team Providers + +------+ + | Care Project Coordinator Name | Role | Phone | + +------+ + PCP | Unavailable | + +------+ + Encounter Details +--------+ + + + + | Date | Type | Department | Care Team | Description | +--------+ + + + + | 04/04/ | Emergency | [facility] | Trevor Kelly, | Acute bronchitis; | | 2013 | | MEDICAL CENTER | [place] [address] | Dyspnea; Chronic | | | | EMERGENCY CENTER | [place] [address] | renal failure | | | | [address] | [phone] | | | | | [place], [place] | | | | | | [address] | | | | | | [phone] | | | +--------+ + + + [...] documented as of this encounter ED Notes Trevor Kelly MD - 04/04/2014 2:17 PM PDTFormatting of this note might be different fro m the original. ED Provider Notes by Trevor Kelly MD at 04/04/14 310 Author: Trevor Kelly MD Service: (none) Author Type: Physician Filed: 04/04/14 3823 Date of Service: 04/04/141416 Status: Signed Trim Die Maker: Trevor Kelly MD (Physician) [facility] Department of Emergency Medicine History of Present Illness Patient Identification Enrique Potter is a 49 y.o. male. Patient information was obtained from patient. History/Exam limitations: none. Patient presented to the Emergency Department by: Car Chief Complaint Chief Complaint Patient presents with Swelling right arm, pt appears to also have swelling to neck, itching to his face. recently had f istula placed to right arm Shortness of Breath The patient complains of dyspnea, cough. Onset of symptoms was last night, with a consnat c ourse since that time. The symptoms are described to be of modeate severity. The patient d escribes the quality and location of the symptoms as the following: woke upw ith mucous or p lug in airway, trouble breathing, couldn't cough it up. The patient also complains of swell ing right arm, just had AV fistula done by Dr. Meyer, drain removed recently. Has dialysis to [facility]. Care prior to arrival consisted of his regular medications. PCP: [facility] Past Medical History Diagnosis Date Hyperlipidemia [...] exacerbation 10/27/2013 SOB (shortness of breath) 10/27/2013 Diabetes mellitus, type 2 Past Surgical History Procedure Laterality Date Colonoscopy with egd 05/01/2012 Procedure: COLONOSCOPY W/ EGD; Surgeon: John Singleton MD; Location: [facility] ENDOSCOPY; Se rvice: Gastroenterology; Laterality: N/A; Av fistula placement 05/06/2012 Procedure: AV FISTULA; Surgeon: Oskar Meyer MD; Location: [facility] MAIN OR; Service: Vascul ar; Laterality: Left; Left arm possible right Unlisted procedure arthroscopy shoulder rt , ligaments Knee arthroscopy 07/07/2012 Procedure: KNEE - ARTHROSCOPY; Surgeon: Favio Raza MD; Location: [facility] MAIN OR; S ervice: Orthopedics; Laterality: Right; After 1530 Catheter removal 07/07/2012 Procedure: DIALYSIS CATHETER REMOVAL; Surgeon: Oskar Meyer MD; Location: [facility] BEDSIDE OR OCEDURE; Service: General; Laterality: Right; perm cath Dialysis fistula creation 07/07/2012 Procedure: DIALYSIS CATHETER INSERTION; Surgeon: Oskar Meyer MD; Location: [facility] BEDSIDE PROCEDURE; Service: General; Laterality: Left; temporary dialysis catheter Av fistula repair 07/11/2012 Procedure: AV FISTULA GRAFT REPAIR/REVISION; Surgeon: Oskar Meyer MD; Location: [facility] N OR; Service: Vascular; Laterality: Left; Superficialization of brachiobasilic fistula and right IJ perm cath insertion Dialysis fistula creation 07/11/2012 Procedure: DIALYSIS CATHETER INSERTION; Surgeon: Oskar Meyer MD; Location: [facility] MAIN OR; Service: Vascular; Laterality: Left; removed dialysis catheter from left neck and placed new on in left chest, attempted in right neck but unable to place Av fistula placement Right 02/09/2014 Procedure: AV FISTULA; Surgeon: Oskar Meyer MD; Location: [facility] MAIN OR; Service: Vascul ar; Laterality: Right; Superficialization of av fistula Right 03/30/2014 Procedure: AV FISTULA - SUPERFICIALIZATION; Surgeon: Oskar Meyer MD; Location: [facility] MAIN OR; Service: Vascular; Laterality: Right; Prior [...] 20 mg by mouth daily. Historical Provider HYDROcodone-acetaminophen (NORCO) 5-325 MG per tablet Take 1-2 tablets by mouth every 6 (si x) hours as needed for Pain. 03/30/14 04/09/14 Oskar Meyer MD levothyroxine (SYNTHROID) 75 MCG tablet Take 75 [...] 2 (two) times daily. Historica l Provider vancomycin (VANCOCIN) IVPB Inject 750 mg into the vein 3 (three) times a week. 750 mg IV wi th hemodialysis 03/19/14 04/16/14 Elsie Lerner MD Allergies Allergen Reactions Lisinopril Other (See [...] KIDS. CURRENTLY UNEMPLOYED, BEFOR E WORKED AT [employer] IN [place]. Quit METHAMPHETAMINES PER PATIENT after t he ARF in mar 2012. FATHER HAS COLON CANCER, HEART DISEASE, MOTHER 15 YEARS AGO. NO FH KIDNEY PROBLEMS. Family History Problem Relation Age of Onset Heart disease Mother Heart disease Father Diabetes Father Cancer Father colon cancer Review of Systems Constitutional: Negative for: fever, chills, fatigue, sweats or weight loss Eyes: Negative for: decreased vision or irritated eyes Nose: Negative for: nosebleed Throat: Negative for: mouth sores Cardiovascular/Respiratory: Negative for: chest pain, cough Gastrointestinal: Negative for: abdominal pain, vomiting, diarrhea, black or bloody stools Genitourinary: Negative for: dysuria, hematuria, urinary problems Musculoskeletal: Negative for: myalgias and arthralgias Skin: Negative for: laceration or lesion Neuro and psych: Negative for: fainting, head injury, seizure, trouble walking Endocrine/Heme/Lymph: Negative for: swollen lymph nodes, easy bruising All systems reviewed and otherwise negative Physical Exam BP 187/74 | Pulse 89 | Temp(Src) 97.8 F (36.6 C) | Resp 22 | Ht 1.702 m (5' 7") | Wt 79 .2 kg (174 lb 9.7 oz) | BMI 27.34 kg/m2 | SpO2 97% Vital signs reviewed and significant for hypertension Pulse Oximetry interpretation: Normal General: Alert, in no apparent distress Eyes: Normal inspection, pupils equal and round, non-icteric ENT: Ears normal Nose normal Pharynx normal Neck: Normal inspection Supple No lymphadenopathy No meningismus Cardiovascular: Rate and rhythm normal No murmurs Respiratory: Breath sounds normal bilaterally Abdomen: Soft, non-tender, non-distended No guarding or rebound Extremiteis: Right arm, moderate edema, healing surgical incision right arm Genitourinary: Deferred Rectal exam: Deferred Back: Normal inspection Skin: Color normal Warm and dry No rash Neuro: No motor deficit No sensory deficit No confusion Medical Decision Making and Emergency Department Course The patient presents with a chief complaint of dyspnea. The list of possible emergent diag noses that the patient requires an evaluation for includes (but is not limited to) hypercoag ulable state, anemia, dehydration, renal failure, electrolyte changes, unstable angina, acut e myocardial ischemia, arrhythmia, congestive heart failure, pericarditis, effusions, pneumo leeann, asthma, pulmonary edema and anxiety with hyperventilation. I feel that laboratory test ing and further diagnostic testing is necessary to ensure that there is no acute emergent ca use of the symptoms. I have ordered a 12 lead EKG, CXR, and labs. Patient will be placed o n the dirt bike mechanic to ensure no life threatening arrhythmia develops and will be given deal pplemental oxygen via nasal cannula if indiated. ED Department Course Labs unremarkable other than mild elevation in BNP, no marked pulmonary edema on xray. sym tpoms more consistent with bronchitis. Will treat with mild antibiotic and have him follow up. The patient will follow up with their doctor for further outpatient treatment as indicat ed. Agrees to return to the ED if symptoms worsen or if any other concerns. Records Reviewed Old medical records. Laboratory Evaluation Labs Reviewed BRAIN NATRIURETIC PEPTIDE - Abnormal; Notable for the following: BRAIN NATRIURETIC PEPTIDE 285 (*) All other components within normal limits [facility] CARD PANEL W/O TRP (ED ONLY) - Abnormal; Notable for the following: RBC 3.82 (*) HGB 11.6 (*) HCT 34.4 (*) RDW SD 53.4 (*) EOSINOPHILS ABS 0.7 (*) GLUCOSE 120 (*) BUN 27 (*) CREATININE 6.67 (*) CALCIUM 7.8 (*) Albumin 2.9 (*) A/G 0.8 (*) ALK PHOS 140 (*) EGFR 9 (*) All other components within normal limits POC CARDIAC TROPONIN Results Procedure Component Value Units Date/Time Cardiac Panel [[id number]] (Abnormal) Collected: 04/04/14 1431 WBC 5.7 K/uL Updated: 04/04/14 1510 RBC 3.82 (L) M/uL HGB 11.6 (L) g/dL HCT 34.4 (L) % MCV 90.2 fl MCH 30.3 pg MCHC 33.6 g/dL RDW SD 53.4 (H) fl PLT 220 K/uL MPV 6.3 fl DIFF TYPE AUTOMATED NEUTROPHILS 61.5 % LYMPHOCYTES 16.9 % MONOCYTES 8.0 % EOSINOPHILS 12.8 % BASOPHILS 0.8 % NEUTROPHILS ABS 3.5 K/uL LYMPHOCYTES ABS 1.0 K/uL MONOCYTES ABS 0.5 K/uL EOSINOPHILS ABS 0.7 (H) K/uL BASOPHILS ABS 0.0 K/uL SODIUM 137 mmol/L POTASSIUM 4.8 mmol/L CHLORIDE 101 mmol/L CO2 28 mmol/L ANION GAP AGAP 13 mmol/L GLUCOSE 120 (H) mg/dL BUN 27 (H) mg/dL CREATININE 6.67 (H) mg/dL BUN/CREAT 4 CALCIUM 7.8 (L) mg/dL TOTAL PROTEIN 6.8 g/dL Albumin 2.9 (L) g/dL GLOBULIN 3.8 g/dL A/G 0.8 (L) TBIL 0.6 mg/dL ALK PHOS 140 (H) U/L AST 39 U/L ALT 49 U/L EGFR 9 (L) mL/min/1.73m2 CPK 62 U/L INR 1.0 APTT 25 seconds MMB 3.2 ng/mL CK-MB Index 5.2 BNP [[id number]] (Abnormal) Collected: 04/04/14 1431 Specimen Information: Blood Updated: 04/04/14 1455 BRAIN NATRIURETIC PEPTIDE 285 (H) pg/mL Available Labs reviewed and interpreted by me. Radiology Evaluation Imaging Results XR chest PA and lateral (Final result) Result time: 04/04/14 15:21:39 Final result by Rad Results In [place] (04/04/14 15:21:39) Impression: 1. Normal examination of the chest. 2. Left-sided vascular access catheter noted in satisfactory position largely unchanged fr om the previous exam. Narrative: ENRIQUE POTTER XR CHEST 2 VIEW FRONTAL AND LATERAL 04/04/2014 3:10 PM HISTORY: 49 years. Male. Shortness of breath. TECHNIQUE: 2 views obtained. COMPARISON: 03/18/2014. FINDINGS: A dual lumen vascular access catheter enters from a right subclavian approach. The tip of the catheter is 8.5 cm below the sabine within the right atrium. The heart is normal in size. The lungs are normally expanded. The pulmonary vascular julia sirisha is normal. No acute airspace disease, parenchymal nodule, mass, pleural effusion or pne umothorax is noted. No hilar adenopathy is seen. The osseous structures are intact. ED Interpretation Documented by Trevor Kelly MD (04/04/14 15:16:34, [facility] Emergency Department, Emergency Medicine) This ED initial read occurred during the ED course and management. The ED interpretation at the time the patient was being clinically managed, and prior to the radiology final read interpretation was: normal chest xray, no fractures, no effusions, no infiltrates, no cardiomegaly, port in chest Available radiology studies reviewed and interpreted contemporaneously by me. EKG Interpretation Rhythm: Sinus Ventricular Rate: 89 OR Interval: Normal ST Segments: Normal Significant Q-waves: None Blocks: None ED Diagnoses Final diagnoses Acute bronchitis Dyspnea Chronic renal failure Disposition: ED Disposition Discharge Condition at discharge: Stable Follow-up Information Follow up With Details Comments Contact Info [facility] [address] [place] [address] Discharge Medications: Discharge Medication List as of 04/04/2014 3:32 PM START taking these medications Details azithromycin (ZITHROMAX) 250 MG tablet Take 1 tablet by mouth daily. 2 tablets on the first day, then 1 tablet on days 2-5., Starting 04/04/2014, Until 04/09/14, Print Procedures Additional Documentation Procedures Trevor Kelly MD 04/04/14 3760 onversion Transacti on, Provider Unknown - 04/04/2014 2:16 PM PDTFormatting of this note might be different fro m the original. ED Notes by Byron Cooper RN at 04/04/14 141 Author: Byron Cooper RN Service: (none) Author Type: Registered Nurse Filed: 04/04/141415 Date of Service: 04/04/141415 Status: Signed Trim Die Maker: Byron Cooper RN (Registered Nurse) 2 patient identifiers checked, patient gowned, side rails up x1 ID band placed on patient, call light instructed on and given to patient. Byron Cooper RN 04/04/14 141 docume nted in this encounter Plan of [...] | ECG 12 LEAD | Routin | 04/04/2014 | | Results for this | | | e | 2:20 PM | | procedure are in the [...] At | + + + | ENRIQUE ROMY XR CHEST 2 VIEW FRONTAL AND LATERAL [...] Conversion - 02/06/2019 10:59 AM PDT ENRIQUE GARZA CHEST 2 VIEW FRONTAL AND | | [id number]/04/2014 3:10 PM HISTORY:49 years. Male. Shortness of [...] [place] | | | | | | [id number] | | | | + + + + + -+ | Non- | 3.82 (L)Comment: Testing | 4.20 - 5.70 | EXTERNAL | | | Red Blood | performed at [facility];888 | M/uL | LAB | | | Cells | [address];[place] | | | | | Counted | [id number] | | | | + + + + + -+ | Hemoglobin | 11.6 (L)Comment: Testing | 13.2 - 17.0 | EXTERNAL | | | | performed at [facility];888 | g/dL | LAB | | | | [address];[place] | | | | | | [address] | | | | + + + + + -+ | Hematocrit, | 34.4 (L)Comment: Testing | 39.0 - 50.0 % | EXTERNAL | | | POC | performed at [facility];888 | | LAB | | | | [address];[place] | | | | | | [address] | | | | + + + + + -+ | MCV | 90.2Comment: Testing | 80.0 - 100.0 fl | EXTERNAL | | | | performed at [facility];888 | | LAB | | | | [address];[place] | | | | | | [address] | | | | + + + + + -+ | MCH | 30.3Comment: Testing | 27.0 - 34.0 pg | EXTERNAL | | | | performed at [facility];[address] | | LAB | | | | [address];[place] | | | | | | [address] | | | | + + + + + -+ | MCHC | 33.6Comment: Testing | 32.0 - 35.5 | EXTERNAL | | | | performed at [facility];888 | g/dL | LAB | | | | [address];[place] | | | | | | [address] | | | | + + + + + -+ | RDW-CV | 53.4 (H)Comment: Testing | 37 - 53 fl | EXTERNAL | | | | performed at [facility];888 | | LAB | | | | [address];[place] | | | | | | [address] | | | | + + + + + -+ | Platelet | 220Comment: Testing | 150 - 400 K/uL | EXTERNAL | | | Count | performed at [facility];888 | | LAB | | | Plasma | [address];[place] | | | | | | [address] | | | | + + + + + -+ | MPV | 6.3Comment: Testing | fl | EXTERNAL | | | | performed at [facility];[address] | | LAB | | | | [address];[place] | | | | | | [address] | | | | + + + + + -+ | Differentia | AUTOMATEDComment: | | EXTERNAL | | | l Type | Testing performed at | | LAB | | | | [facility];[address];[place] [address] | | | | + + + + + -+ | % Segmented | 61.5Comment: Testing | % | EXTERNAL | | | | performed at [facility];888 | | LAB | | | Neutrophils | [address];[place] | | | | | | [address] | | | | + + + + + -+ | % | 16.9Comment: Testing | % | EXTERNAL | | | Lymphocytes | performed at [facility];888 | | LAB | | | | [address];[place] | | | | | | [address] | | | | + + + + + -+ | % Monocytes | 8.0Comment: Testing | % | EXTERNAL | | | | performed at [facility];888 | | LAB | | | | [address];[place] | | | | | | [address] | | | | + + + + + -+ | % | 12.8Comment: Testing | % | EXTERNAL | | | Eosinophils | performed at [facility];[address] | | LAB | | | | [address];[place] | | | | | | [address] | | | | + + + + + -+ | % Basophils | 0.8Comment: Testing | % | EXTERNAL | | | | performed at [facility];[address] | | LAB | | | | [address];[place] | | | | | | [address] | | | | + + + + + -+ | Absolute | 3.5Comment: Testing | 1.9 - 7.4 K/uL | EXTERNAL | | | Segmented | performed at [facility];888 | | LAB | | | Neutrophils | [address];[place] | | | | | | [address] | | | | + + + + + -+ | Absolute | 1.0Comment: Testing | 1.0 - 3.9 K/uL | EXTERNAL | | | Lymphocytes | performed at [facility];888 | | LAB | | | | [address];[place] | | | | | | [address] | | | | + + + + + -+ | Absolute | 0.5Comment: Testing | 0 - 0.8 K/uL | EXTERNAL | | | Monocytes | performed at [facility];888 | | LAB | | | | [address];[place] | | | | | | [address] | | | | + + + + + -+ | Absolute | 0.7 (H)Comment: Testing | 0 - 0.5 K/uL | EXTERNAL | | | Eosinophils | performed at [facility];888 | | LAB | | | | [address];[place] | | | | | | [address] | | | | + + + + + -+ | Absolute | 0.0Comment: Testing | 0 - 0.1 K/uL | EXTERNAL | | | Basophils | performed at [facility];[address] | | LAB | | | | [address];[place] | | | | | | [address] | | | | + + + + + -+ | Na | 137Comment: Testing | 135 - 143 | EXTERNAL | | | | performed at [facility];888 | mmol/L | LAB | | | | [address];[place] | | | | | | [address] | | | | + + + + + -+ | K | 4.8Comment: Testing | 3.5 - 4.9 | EXTERNAL | | | | performed at [facility];888 | mmol/L | LAB | | | | [address];[place] | | | | | | [address] | | | | + + + + + -+ | Cl | 101Comment: Testing | 99 - 109 mmol/L | EXTERNAL | | | | performed at [facility];888 | | LAB | | | | [address];[place] | | | | | | [address] | | | | + + + + + -+ | CO2 | 28Comment: Testing | 23 - 32 mmol/L | EXTERNAL | | | | performed at [facility];888 | | LAB | | | | [address];[place] | | | | | | [address] | | | | + + + + + -+ | Anion Gap | 13Comment: Testing | 5 - 20 mmol/L | EXTERNAL | | | | performed at [facility];888 | | LAB | | | | [address];[place] | | | | | | [address] | | | | + + + + + -+ | Glucose, | 120 (H)Comment: Testing | 65 - 99 mg/dL | EXTERNAL | | | Fasting | performed at [facility];888 | | LAB | | | | [address];[place] | | | | | | [address] | | | | + + + + + -+ | BUN | 27 (H)Comment: Testing | 8 - 25 mg/dL | EXTERNAL | | | | performed at [facility];888 | | LAB | | | | [address];[place] | | | | | | [address] | | | | + + + + + -+ | Creatinine | 6.67 (H)Comment: Testing | 0.70 - 1.30 | EXTERNAL | | | | performed at [facility];888 | mg/dL | LAB | | | | [address];[place] | | | | | | [address] | | | | + + + + + -+ | BUN/Creatin | 4Comment: Testing | | EXTERNAL | | | ine Ratio | performed at [facility];888 | | LAB | | | | [address];[place] | | | | | | [address] | | | | + + + + + -+ | Calcium | 7.8 (L)Comment: Testing | 8.5 - 10.2 | EXTERNAL | | | | performed at [facility];888 | mg/dL | LAB | | | | [address];[place] | | | | | | [address] | | | | + + + + + -+ | Protein, | 6.8Comment: Testing | 6.3 - 8.2 g/dL | EXTERNAL | | | Total | performed at [facility];[address] | | LAB | | | | [address];[place] | | | | | | [address] | | | | + + + + + -+ | Albumin | 2.9 (L)Comment: Testing | 3.6 - 5.0 g/dL | EXTERNAL | | | | performed at [facility];888 | | LAB | | | | [address];[place] | | | | | | [address] | | | | + + + + + -+ | Globulin | 3.8Comment: Testing | 1.3 - 4.9 g/dL | EXTERNAL | | | | performed at [facility];888 | | LAB | | | | [address];[place] | | | | | | [address] | | | | + + + + + -+ | A/G Ratio | 0.8 (L)Comment: Testing | 1.0 - 2.4 | EXTERNAL | | | | performed at [facility];888 | | LAB | | | | [address];[place] | | | | | | [address] | | | | + + + + + -+ | Bilirubin | 0.6Comment: Testing | 0.1 - 1.5 mg/dL | EXTERNAL | | | Total | performed at [facility];888 | | LAB | | | | [address];[place] | | | | | | [address] | | | | + + + + + -+ | ALP, | 140 (H)Comment: Testing | 35 - 115 U/L | EXTERNAL | | | External | performed at [facility];[address] | | LAB | | | | [address];[place] | | | | | | [address] | | | | + + + + + -+ | AST | 39Comment: Testing | 10 - 45 U/L | EXTERNAL | | | | performed at [facility];[address] | | LAB | | | | [address];[place] | | | | | | [address] | | | | + + + + + -+ | ALT | 49Comment: Testing | 10 - 65 U/L | EXTERNAL | | | | performed at [facility];[address] | | LAB | | | | [address];[place] | | | | | | [address] | | | | + + + [...] [address];[place] [address] | | | | + + + + + -+ | CK, Total | 62Comment: Testing | 55 - 400 U/L | EXTERNAL | | | | performed at [facility];[address] | | LAB | | | | [address];[place] | | | | | | [address] | | | | + + + [...] [place] | | | | | | [address] | | | | + + + + + -+ | aPTT, | 25Comment: Testing | 23 - 32 seconds | EXTERNAL | | | Patient | performed at [facility];[address] | | LAB | | | | [address];[place] | | | | | | [address] | | | | + + + + + -+ | CK-MB | 3.2Comment: Testing | 0.5 - 3.6 ng/mL | EXTERNAL | | | | performed at [facility];[address] | | LAB | | | | [address];[place] | | | | | | [address] | | | | + + + [...] | LAB | | | | [address] [facility];[place], [place] | | | | | | [address] | | | | + + + [...] + +---------+ + + ECG 12 lead (04/04/2014 2:20 PM PDT) + + + + + [...] of | | | | | | 15-MAR-2014 19:52,No | | | | | | significant [...] | | | | | ONLY, -COMPUTER ([id number]), | | | | | | online content editor Neda Resendiz | | | | | | (29) on 04/04/2014 | | | | | | 4:19:51 PM | | | | + + + + + + + + | Specimen | + + | | + + + + + | Narrative | Performed At | + + + | Historically converted procedure from [facility] environment | EXTERNAL LAB | + [...]
--- OUTSIDE RECORDS SUMMARY | ~2020-03-11 | XMS | Encounter Summary ---
Demographics + + + | Address | [address] | | | [place] [address] | + + + | Home Phone [...] Author + + + | Author | [facility] | | | and [place] | + + + | Organization | [facility] | | | [...] Team Providers + +------+ + | Care Vice President Marketing & Development Name | Role | Phone | + +------+ + PCP | Unavailable | + +------+ + Encounter Details +--------+ + + + + | Date | Type | Department | Care Team | Description | +--------+ + + + + | 03/30/ | Hospital | [facility] | Oskar Meyer MD | | | 2014 | Encounter | [facility] | [address] | | | | | [address] | [place], [place] | | | | | [place], [place] | [address] | | | | | [address] | [phone] | | | | | [phone] | | | +--------+ + + + [...] Date of Service: 03/30/14 1320 Status: Signed Chemical Treatment Plant Technician: Tariq Rosenthal RN (Registered Nurse) Johnny and Denita present CRISTI drain in RUE. Dressing CDI scant amt of serosanguinous drainage . onver quique Transaction, Provider Unknown - 03/30/2014 1:00 PM PDT Progress Notes by Yahaira Diaz RN at 03/30/14 1300 Author: Yahaira Diaz RN Service: (none) Author Type: Registered Nurse Filed: 03/30/14 1349 Date of Service: 03/30/14 1300 Status: Signed Chemical Treatment Plant Technician: Yahaira Joe, RN (Registered Nurse) Asked Dr. Meyer to check AV Fistula site. I stated can palpate Bruit faintly thru dressing. A thrill is loud audible. He looked at patient and stated that was acceptable. Yahaira chacon Kerline Hernandez RPH - 03/30/2014 12:59 PM PDTFormatting of this note might be different from the or iginal. Progress Notes by Kerline Edgar RPH at 03/30/141258 Author: Kerline Edgar RPH Service: (none) Author Type: Pharmacist Filed: 03/30/141258 Date of Service: 03/30/141258 Status: Signed Chemical Treatment Plant Technician: Kerline Edgar RPH (Pharmacist) Renal Dosing Monitoring: Enrique Potter 49 [...] Service: Vascular Surgery Author Type: Advanced Registered Dave ziegler Practitioner Filed: 03/30/14 1028 Date of Service: 03/30/14 102 Status: Signed Chemical Treatment Plant Technician: DARRELL Medellin (Advanced Registered Nurse Practitioner) [facility] Service: Vascular Surgery Pre-Operative History [...] W/ EGD; Surgeon: John Singleton MD; Location: [facility]; Se rvice: Gastroenterology; Laterality: N/A; Av fistula placement 05/06/2012 Procedure: AV FISTULA; Surgeon: Oskar Meyer MD; Location: [facility] MAIN OR; Service: Vascul ar; Laterality: Left; Left arm possible right Unlisted procedure arthroscopy shoulder rt , ligaments Knee arthroscopy 07/07/2012 Procedure: KNEE - ARTHROSCOPY; Surgeon: Favio Raza MD; Location: [facility] MAIN OR; S ervice: Orthopedics; Laterality: Right; After 1530 Catheter removal 07/07/2012 Procedure: DIALYSIS CATHETER REMOVAL; Surgeon: Oskar Meyer MD; Location: [facility] BEDSIDE CO OCEDURE; Service: General; Laterality: Right; perm cath Dialysis fistula creation 07/07/2012 Procedure: DIALYSIS CATHETER INSERTION; Surgeon: Oskar Meyer MD; Location: [facility] BEDSIDE PROCEDURE; Service: General; Laterality: Left; temporary dialysis catheter Av fistula repair 07/11/2012 Procedure: AV FISTULA GRAFT REPAIR/REVISION; Surgeon: Oskar Meyer MD; Location: [facility] OR; Service: Vascular; Laterality: Left; Superficialization of brachiobasilic fistula and right IJ perm cath insertion Dialysis fistula creation 07/11/2012 Procedure: DIALYSIS CATHETER INSERTION; Surgeon: Oskar Meyer MD; Location: [facility] MA[facility] OR; Service: Vascular; Laterality: Left; removed dialysis catheter from left neck and placed new on in left chest, attempted in right neck but unable to place Av fistula placement Right 02/09/2014 Procedure: AV FISTULA; Surgeon: Oskar Meyer MD; Location: [facility] MA[facility] OR; Service: Vascul ar; [...] KIDS. CURRENTLY UNEMPLOYED, BEFOR E WORKED AT [employer] IN [place]. Quit METHAMPHETAMINES PER PATIENT after t he [...] answered to their satisfaction. Primary Care Physician: [facility] DARRELL Medellin 2014 *CORE MEASURES REMINDER: If [...] Note by Oskar Meyer MD at 03/30/14 3468 Author: Oskar Meyer MD Service: Vascular Surgery Author Type: Physician Filed: 03/30/14 1147 Date of Service: 03/30/141137 Status: Signed Chemical Treatment Plant Technician: Oskar Meyer MD (Physician) [facility] Service: Vascular Surgery Operative Note Pre-operative Diagnosis: ESRD and fistula too deep to access Post-operative Diagnosis: Same Procedure(s): Superficialization of right arm fistula Surgeon: Oskar Meyer MD Sustainability Officer(s): DARRELL Medellin Anesthesia: General LMA Estimated Blood [...] | | Fingerstick | performed at [facility];[address] | | LAB | | | | [address] [facility];[place], [place] | | | | | | [address] | | | | + + + [...] | | Fingerstick | performed at [facility];[address] | | LAB | | | | [address];[place], [place] | | | | | | [address] | | | | + + + [...]
--- OUTSIDE RECORDS SUMMARY | ~2020-03-11 | XMS | Encounter Summary ---
Demographics + + + | Address | [address] | | | [place] [address] | + + + | Home Phone [...] Team Providers + +------+ + | Care Dielectric Press Operator Name | Role | Phone | + +------+ + PCP | Unavailable | + +------+ + Encounter Details +--------+ + + + + | Date | Type | Department | Care Team | Description | +--------+ + + + + | 02/03/ | Hospital | [facility] | Conversion | ESRD (end stage | | 2014 | Encounter | [facility] | Transaction, | renal disease) (HCC) | | | | [address] | Provider Unknown | | | | | [place], [place] | [phone] | | | | | [address] | | | | | | [phone] | Oskar Meyer MD | | | | | | [address] | | | | | | [place], [place] | | | | | | [address] | | | | | | [phone] | | | | | | | [...] Type: Advanced Registered N toney Practitioner Filed: 02/03/141525 Date of Service: 02/03/141525 Status: Signed Securities Broker: DARRELL Medellin (Advanced Registered Nurse Practitioner) [facility] Service: Vascular Surgery Pre-Operative History & Physical DIAGNOSIS: ESRD INDICATION: SAME PROCEDURE: Right arm venogram CHIEF COMPLAINT: Need for longterm hemodialysis access History Obtained From: patient HISTORY [...] W/ EGD; Surgeon: John Singleton MD; Location: [facility] END[facility]; Se rvice: Gastroenterology; Laterality: N/A; Av fistula placement 05/06/2012 Procedure: AV FISTULA; Surgeon: Oskar Meyer MD; Location: [facility] MA[facility] OR; Service: Vascul ar; Laterality: Left; Left arm possible right Unlisted procedure arthroscopy shoulder rt , ligaments Knee arthroscopy 07/07/2012 Procedure: KNEE - ARTHROSCOPY; Surgeon: Favio Raza MD; Location: [facility] MA[facility] OR; S ervice: Orthopedics; Laterality: Right; After 1530 Catheter removal 07/07/2012 Procedure: DIALYSIS CATHETER REMOVAL; Surgeon: Oskar Meyer MD; Location: [facility] BEDSIDE [place] OCEDURE; Service: General; Laterality: Right; perm cath Dialysis fistula creation 07/07/2012 Procedure: DIALYSIS CATHETER INSERTION; Surgeon: Oskar Meyer MD; Location: [facility] BEDSIDE PROCEDURE; Service: General; Laterality: Left; temporary dialysis catheter Av fistula repair 07/11/2012 Procedure: AV FISTULA GRAFT REPAIR/REVISION; Surgeon: Oskar Meyer MD; [facility]; Service: Vascular; Laterality: Left; Superficialization of brachiobasilic fistula and right IJ perm cath insertion Dialysis fistula creation 07/11/2012 Procedure: DIALYSIS CATHETER INSERTION; Surgeon: Oskar Meyer MD; Location: [facility] OR; Service: Vascular; Laterality: Left; [...] KIDS. CURRENTLY UNEMPLOYED, BEFOR E WORKED AT [employer] IN [place]. Quit METHAMPHETAMINES PER PATIENT after t he [...] answered to their satisfaction. Primary Care Physician: [facility] DARRELL Medellin 02/01/2014 *CORE MEASURES [...] Op Note by Oskar Meyer MD at 02/03/14 1119 Author: Oskar Meyer MD Service: Vascular Surgery Author Type: Physician Filed: 02/03/141120 Date of Service: 02/03/141118 Status: Signed Securities Broker: Oskar Meyer MD (Physician) [facility] Service: Vascular Surgery Brief Op Note Pre-operative Diagnosis: ESRD and need for right arm fistula creation Post-operative Diagnosis: Same Procedure(s): Right upper extremity venogram Surgeon: Oskar Meyer MD Rubber Heel And Sole Press Tender(s): None Anesthesia: None Estimated Blood Loss: Less [...] | | | SURGEON Oskar Meyer MD ACCOUNTING OFFICE MANAGER None ANESTHESIA Moderate | | | sedation, [...] Khalif Palm - 02/06/2019 10:59 AM PDT PREOPERATIVE DIAGNOSISEnd-stage renal | | disease, need for right arm fistula creation POSTOPERATIVE DIAGNOSISEnd-stage renal | | disease, need for right arm fistula creation PROCEDURERight arm venogram SURGEONDae Mitch, | | ASSISTANTNonmariela ANESTHESIAModerate sedation, local anesthesia. [...]
--- OUTSIDE RECORDS SUMMARY | ~2020-03-11 | XMS | Encounter Summary ---
Demographics + + + | Address | [address] | | | [place] [address] | + + + | Home Phone [...] Team Providers + +------+ + | Care Licensed Practical Nurse Instructor Name | Role | Phone | + +------+ + PCP | Unavailable | + +------+ + Encounter Details +--------+ + + + + | Date | Type | Department | Care Team | Description | +--------+ + + + + | 04/28/ | Hospital | [facility] | [place], | Acute respiratory | | 2016 - | Encounter | [facility] | Nehal Head, | failure with hypoxia | | | | CLINICAL DECISION | MD Je[address] | ([facility]); Acute | | 04/30/ | | [address] | [place] Billie PAULA, | respiratory failure | | 2016 | | [place], [place] | [place] [address] | with hypoxia and | | | | [address] | [phone] | hypercapnia ([facility]) | | | | [phone] | | | +--------+ + + + [...] + + + | Blood Pressure | 129/70 | 04/30/2016 1:32 PM | | | | | PST | | + + + + + | Pulse | 92 | 04/30/2016 1:32 PM | | | | | PST | | + + + + + | Temperature | 36.3 C (97.4 F) | 04/30/2016 1:32 PM | | | | | PST | | + + + + + | Respiratory Rate | 18 | 04/30/2016 1:32 PM | | | | | PST | | + + + + + | Oxygen Saturation | - | - | | + + + + + | Inhaled Oxygen | - | - | | | Concentration | | | | + + + + + | Weight | 81.6 kg (179 lb 14.4 | 04/30/2016 1:32 PM | | | | oz) | PST | | + + + + + | Height | 170.2 cm (5' 7") | 04/30/2016 1:32 PM | | | | | PST | | + + + + + | Body Mass Index | 28.18 | 04/30/2016 1:32 PM | | | | | PST | | + + + + + documented in this encounter Discharge Summaries Khanh Rangel MD - 04/30/2016 10:29 AM PST Discharge Summaries by Khanh Rangel MD at 04/30/16 1029 Author: Khanh Rangel MD Service: Hospitalist Author Type: Physician Filed: 05/09/16 1136 Date of Service: 04/30/16 1029 Status: Addendum Mold Unloader: Khanh Rangel MD (Physician) Related Notes: Original Note by Khanh Rangel MD (Physician) filed at 04/30/16 1041 [facility] Service: Hospitalist Discharge Summary Date of Admission: 04/28/2016 Date of Discharge: 04/30/2016 Discharge Provider: Khanh Rangel MD Treatment Team: Consulting Physician: Fela Mayberry MD Admitting Provider: Nehal Simpson MD Discharge Diagnoses: Principal Problem: Acute respiratory failure with hypoxia and hypercapnia ([facility]) Active Problems: Hypothyroidism Diabetes mellitus with ESRD (end-stage renal disease) ([facility]) HTN (hypertension) ESRD (end stage renal disease) on dialysis ([facility]) Polysubstance abuse Hyponatremia Anemia of chronic disease Chronic obstructive asthma with exacerbation (HCC) Chronic steroid use Resolved Problems: * No resolved hospital problems. * Procedures: * No surgery found * BRIEF HISTORY OF PRESENTATION: Carol Potter is a 51 y.o. male who per H&P: The patient is a 51 y.o. male with significan t past medical history of T2DM, ESRD, on HD, but still able to urinate and is on daily furos emide; hypothyroidism, gout, asthma on maintenance Advair and chronic prednisone therapy. HTN, HPL, anemia of chronic disease, R IJ thrombosis, polysubstance abuse, who was brought t o the [facility] due to shortness of breath. Per report, he missed his hemodialy sis on 04/27/16 because he been sick and ill with URI symptoms (reportedly was taking Nyquil for the past days). We have yet to corroborate reports from his family. -PER FAMILY: He is a strong smoker of marijuana and is actively smoking cigarettes. He also has been drinking more fluids over the past week AND NOT alcohol. They report that he has had an increase in c ough and wheezing for the past month. He also apparently been complaining of epigastric pa in and has had nausea and vomiting. In [facility], he was found to be in severe respiratory distress with diffuse wheezing, and hypoxemia (sats reported in the 80s), and so he was intubated and placed on the mechanical ventilator. Request for transfer was made for further care. Preliminary investigation showed an elevated WBC at 24K, Na low at 124, pH 7.2 with a pCO2 of 52, pO2 33. CXR with interstitial infiltrates, mostly in the upper lobes. HOSPITAL COURSE: from previous note: The patient is a 51 y.o. male with significant past medical history of T2DM, ESRD, on HD, but still able to urinate and is on daily furosemide; hypothyroidism, gou t, asthma on maintenance Advair and chronic prednisone therapy. HTN, HPL, anemia of chroni c disease, R IJ thrombosis, polysubstance abuse, who was brought to [facility] due to sh ortness of breath. Per report, he missed his hemodialysis on 04/27/16. He apparently been ill with increasing cough and URI symptoms for several weeks. ICU Timeline: 04/28: intubated in outside hospital. R femoral placed. DH done care of Nephrology. Blood and sputum CS pending. Events Overnight: Extubated, and doing well. Pleasant and in no discomfort. With leukocyt osis -steroid response vs acute pulmonary infection. Blood, sputum CS pending Assumed care of the patient today 04/30/2016. I encountered patient in room 324 laying in be d sleeping comfortably. Patient denies a respiratory discomfort or shortness of breath. Ther e is no wheezes or rales or crackles on my examination. Patient remains afebrile. Patient is not in any respiratory distress. I suspect that his initial presentation was due to fluid o verload from renal insufficiency on dialysis. I do not think there is underlying infection o r pneumonia at this time. Therefore will not continue with antibiotic as an outpatient basis . Will not continue any steroids. End-stage renal disease: We will continue dialysis today prior to discharge. Followed by Dr Renato Mayberry. Leukocytosis: Most likely from steroids. Type II diabetes: A1c is 6.2. MRSA was negative. hepatitis B surface antigen is negative. It is reasonable for patient to be discharged today after completion of dialysis. Past Medical History Diagnosis Date Hyperlipidemia Hypertension Thyroid disease Anemia Abdominal pain, right upper quadrant 04/13/2012 Dialysis patient (HCC) GI bleed 04/30/2012 from coumadin Walker as ambulation aid Gout Asthma pt not using inhaler any more, no symptoms DVT (deep venous thrombosis) ([facility]) x3 AV fistula ([facility]) lt arm Knee pain, right 07/06/2012 MSSA (methicillin susceptible Staphylococcus aureus) infection 04/11/2012 Anemia due to blood loss 04/30/2012 Amphetamine and other psychostimulant dependence, continuous 04/02/2012 Hyperphosphatemia 05/24/2012 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 Rash and nonspecific skin eruption 04/03/2012 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 Neuromuscular disorder ([facility]) neuropathy Hyperkalemia 11/09/2013 Chronic obstructive asthma with exacerbation (HCC) 10/27/2013 SOB (shortness of breath) 10/27/2013 Diabetes mellitus type I ([facility]) Past Surgical History Procedure Laterality Date Unlisted procedure arthroscopy shoulder rt , ligaments Superficialization of av fistula Right 03/30/2014 Procedure: AV FISTULA - SUPERFICIALIZATION; Surgeon: Oskar Meyer MD; Location: [facility] MA[facility]; Service: Vascular; Laterality: Right; Av fistula placement Right 02/09/2014 Procedure: AV FISTULA; Surgeon: Oskar Meyer MD; Location: [facility] MAIN OR; Service: Vascul ar; Laterality: Right; Av fistula repair Left 07/11/2012 Procedure: AV FISTULA - GRAFT REPAIR/REVISION; Surgeon: Oskar Meyer MD; Location: [facility] M AIN OR; Service: Vascular; Laterality: Left; Superficialization of brachiobasilic fistula and right IJ perm cath insertion Dialysis fistula creation Left 07/11/2012 Procedure: DIALYSIS CATHETER - INSERTION; Surgeon: Oskar Meyer MD; Location: [facility] MAIN O R; Service: Vascular; Laterality: Left; removed dialysis catheter from left neck and plac ed new on in left chest, attempted in right neck but unable to place Catheter removal Right 07/07/2012 Procedure: DIALYSIS CATHETER - REMOVAL; Surgeon: Oskar Meyer MD; Location: [facility] BEDSIDE PROCEDURE; Service: General; Laterality: Right; perm cath Dialysis fistula creation Left 07/07/2012 Procedure: DIALYSIS CATHETER - INSERTION; Surgeon: Oskar Meyer MD; Location: [facility] BEDSID E PROCEDURE; Service: General; Laterality: Left; temporary dialysis catheter Knee arthroscopy Right 07/07/2012 Procedure: KNEE - ARTHROSCOPY; Surgeon: Favio Raza MD; Location: [facility] MAIN OR; ervice: Orthopedics; Laterality: Right; After 1530 Av fistula placement Left 05/06/2012 Procedure: AV FISTULA; Surgeon: Oskar Meyer MD; Location: [facility] MA[facility] OR; Service: Vascul ar; Laterality: Left; Left arm possible right Colonoscopy with egd N/A 05/01/2012 Procedure: COLONOSCOPY W/ EGD; Surgeon: John Singleton MD; Location: [facility] ENDOSCOPY; Se rvice: Gastroenterology; Laterality: N/A; Allergies Allergen Reactions Azithromycin Rash Unknown Lisinopril Other (See Comments) "makes me sweat and knocked me out" Penicillins Other (See Comments) Unknown- not sure 10/08/12: Patient tolerated Ceftriaxone during previous admissions. Prescriptions prior to admission Medication Sig Dispense Refill Last Dose acetaminophen (TYLENOL) 325 MG tablet Take 650 mg by mouth every 6 (six) hours as neede d. Indications: Pain 10/05/2015 at Unknown time albuterol (PROVENTIL HFA) 108 [...] by mouth daily. Indications: Primary G out 10/05/2015 at Unknown time amLODIPine (NORVASC) 10 MG tablet Take 10 mg by mouth daily. 10/05/2015 at Unknown jb e b complex-vitamin c-folic acid (NEPHRO-THU) 0.8 MG TABS Take 1 tablet by mouth daily. 10/05/2015 at Unknown time carvedilol (COREG) 3.125 MG tablet Take 3.125 mg by mouth 2 (two) times daily with meal s. 10/05/2015 at Unknown time Cholecalciferol 2000 UNITS TABS Take 1 tablet by mouth daily. 10/05/2015 at Unknown ti me fluticasone-salmeterol (ADVAIR DISKUS) 250-50 MCG/DOSE Inhale 1 puff into the lungs 2 ( two) times daily. 60 each 0 10/05/2015 at Unknown time furosemide (LASIX) 20 MG tablet Take 20 mg by mouth daily. 10/05/2015 at Unknown time levothyroxine (SYNTHROID) 75 MCG tablet Take 75 mcg by mouth every morning before break fast. Indications: Underactive Thyroid 10/05/2015 at Unknown time montelukast (SINGULAIR) 10 MG tablet Take 1 tablet by mouth nightly. 30 tablet 0 Taking RENVELA 800 MG tablet take 3 tablets by mouth three times a day WITH MEALS AND 1 TABLET WITH SNACKS 300 tablet 1 10/05/2015 at Unknown time sodium bicarbonate 650 MG tablet Take 1,300 mg by mouth 2 (two) times daily. 016 at Unknown time DISCHARGE EXAM Vital Signs: BP 149/75 mmHg | Pulse 88 | Temp(Src) 97.7 F (36.5 C) (Oral) | Resp 18 | Ht 1.702 m (5' 7") | Wt 84.6 kg (186 lb 8.2 oz) | BMI 29.20 kg/m2 | SpO2 100% General Appearance: No apparent distress. Conversive and appropriate to place and person. HEENT: Normocephalic, atraumatic, pupils EOMI, PERRLA. Nose: no septal deviation or dischar ge. Ears: normal size, location, and contour. Oral: moist and appropriate dentition. NECK: is supple, full ROM, nontender. LUNGS: clear to auscultation bilaterally with no wheezing, No rales or rhonchi audible. HEART: S1S2, Regular rate and rhythm without murmurs, gallops or rubs. ABDOMEN:Bowel sound is normoactive, abdomen is soft, non-tender non-distended ,no mass palp able. EXTREMITIES:No lower extermity edema, No clubbing or cyanosis bilaterally NEURO: Cranial Nerves 2-12 intact, Gait normal, Muscle strength good bilaterally, Sensation grossly intact. PSYCH: Alert, awake and Oriented x3. SKIN: No bruises, rashes, lesions, or ulcers. DATA Recent Labs Lab 04/30/16 0601 04/29/16 0437 WBC 31.72* 37.63* RBC 4.04* 4.18* HGB 12.3* 12.3* HCT 36.6* 37.9* MCV 90.6 90.8 MCH 30.5 29.5 MCHC 33.7 32.4 RDW 53.8* 53.8* PLT 181 188 MPV 7.8 7.7 NEUTOPHILPCT 97.03 -- MONOPCT 1.34 -- Recent Labs Lab 04/30/16 0601 NA 134* K 4.7 CL 96* CO2 22* ANIONGAP 21* GLUF 248* BUN 74* CREATININE 8.5* BCR 9 CA 7.8* EGFR 7* PHOS 4.3 MG 2.8* Recent Labs Lab 04/29/16 0317 HGBA1C 6.2* LABGLYC 131 No results for input(s): APTT, INR, PTT in the last 168 hours. Recent Labs Lab 04/29/16 0317 TSH 9.96* FREET4 0.7 No results for input(s): CKTOTAL, TROPONINI, TROPONINT, CKMBINDEX in the last 168 hours. No results found for: HDL, CHOL, CHOLHDL, VLDL, NONHDLCHOLVL Xr Chest 1 View 04/28/2016 CAROL POTTER XR CHEST 1 VIEW 04/28/2016 11:53 AM HISTORY: Respiratory failure. Asses s life support lines and tubes. TECHNIQUE: AP chest radiograph 1150 hours COMPARISON: Chest radiographs, most recent 04/28/2016. FINDINGS: The endotracheal tube is been slightly advance d, currently with the tip 4 cm from the sabine, previously 6 cm. A new nasogastric tube is n oted, the tip in the gastric fundus, with subsequent decrease in the amount of gas in the st omach. Lung volumes are lower. Minimal opacities remains in the right midlung field laterall y, and left lower lung field, potentially subsegmental atelectasis or early infiltrate. No p neumothorax is seen. The cardiac and pulmonary vasculature are normal. 04/28/2016 1. Interval advancement of a well-positioned endotracheal tube. 2. Nasogastric tube, as above. 3. Bilateral lung opacities, as above. Xr Chest 1 View 04/28/2016 This is a non-reportable procedure without a radiologist report and is used for image storage only PLAN Discharge to home with family in stable condition. Code Status: Full Code No discharge procedures on file. Follow [place]: [place] [address] [place] [address] In 1 week Medication List START taking these medications budesonide-formoterol 160-4.5 MCG/ACT inhaler QTY: 2 each Refills: 0 Commonly known as: SYMBICORT Inhale 2 puffs into the lungs 2 (two) times daily. CHANGE how you take these medications albuterol [...] tablet Refills: 0 STOP taking these medications loperamide 2 MG capsule Commonly known as: IMODIUM Where to Get Your Medications You can get these medications from any pharmacy Bring a paper prescription for each of these medications - budesonide-formoterol 160-4.5 MCG/ACT inhaler Discharge took 47 minutes, to include final examination, discussion of admission, and prepa ration of prescriptions, instructions for on-going care, follow-up and documentation of disc harge summary. Khanh Rangel MD 04/30/2016 Odocubia stratton in this encounter Medications at Time [...] Progress Notes Conversion Transaction, Provider Unknown - 04/30/2016 2:05 PM PSTFormatting of this note m ight be different from the original. Therapy Progress Note by Ema Rodriguez PT at 04/30/16 8767 Author: Ema Rodriguez PT Service: (none) Author Type: Physical Therapist Filed: 04/30/16 6123 Date of Service: 04/30/164 Status: Signed Mold Unloader: Ema Rodriguez PT (Physical Therapist) 04/30/16 7244 PT Last Visit PT Received On 04/30/16 Reason for Treatment Deconditioning Requires PT Follow Up Yes Assistance Required 1 person Pipe Finisher Needed No Precautions Other Precautions falls Other Comments Comments Pt in bed upon PT arrival, pt agreeable to participate in therapy this PM. Pt demo nstrating good independence in bed mobility and transfers. Pt trialed ambulation with use of FWW- pt very steady/stable throughout ambualtion. Trialed ambulation again without AD and p t with mild gait unsteadiness. Completed a few segments of DGI with pt (ambulation with head turns) and this seemed to cause pt to have mild posterior LOBs and deviate from path. Pt st ates that he used to use walker at home, but had to give it to his mother (as pt states that his mother needed walker more than he did). PT recommends that pt obtain walker for communi ty distance ambulation as he is limited in endurance and with mild gait unsteadiness - pt ag reeable to this. Pt returned to room, seated EOB post activity, seemed to tolerate well. Cognition Overall Cognitive Status WFL Orientation Level Oriented Bed Mobility Rolling Supervison Supine to Sit Supervision Transfers Sit to/from Stand Standby assist Mobility Ambulation Assistance Standby assist;Minimal assist (occasional CGA with walker, CGA without AD) Maximal Ambulation Distance (feet) 200 Total Ambulation Distance (feet) 250 Distance limited by? Patient's ability Pattern Alternating;Decreased malcolm;Right swing foot doesn't pass stance foot;Left swing foot doesn't pass stance foot;Wide base Assistive Device Walker front wheeled;None (200 x FWW, 50 ft without AD) Modalities Other Therapy Education on safe mobility and use of walker for community distance ambulatio n. Activity Tolerance Activity Tolerance Patient tolerated treatment without report of fatigue Nurse Made Aware Yes Safety Devices Safety Devices in Place (Call light in reach, family present) Restraints Initially in Place No Plan Treatment/Interventions Continue per Primary PT POC Progress Progressing toward goals Recommendation Recommendations Home Assist;OP PT Equipment Recommended Walker 4 wheeled PT Ready for Discharge Yes onver quique Transaction, Provider Unknown - 04/30/2016 1:58 PM PST Nurse Progress Note by Alexis Banegas RN at 04/30/161357 Author: Alexis Banegas RN Service: (none) Author Type: Registered Nurse Filed: 04/30/16 1450 Date of Service: 04/30/161357 Status: Signed Mold Unloader: Alexis Banegas RN (Registered Nurse) Pt discharged to home via private vehicle accompanied by and sister. Verbal and writt en instructions given. Pt stated understand. Vital signs stable at time of discharge. onver quique Transaction, Provider Unknown - 04/30/2016 8:12 AM PST Progress Notes by Elana Bhatt RPH at 04/30/16811 Author: Elana Bhatt RPH Service: (none) Author Type: Pharmacist Filed: 04/30/16811 Date of Service: 04/30/16811 Status: Signed Mold Unloader: Elana Bhatt RPH (Pharmacist) Per nurse note, Patient to have hemodialysis at 0830 today. RN please message pharmacy when dose of Vancomycin is needed. Should be given after each HD session. onver quique Transaction, Provider Unknown - 04/30/2016 4:05 AM PST Nurse Progress Note by Madelyn Dimas RN at 04/30/16404 Author: Madelyn Dimas RN Service: (none) Author Type: Registered Nurse Filed: 04/30/16 0408 Date of Service: 04/30/16404 Status: Signed Mold Unloader: Madelyn Dimas RN (Registered Nurse) Patient to have hemodialysis at 0830 today. Continues to be hypertensive with SBP 140-160s. Blood glucose has been elevated at 300- . Madelyn Dimas RN onver quique Transaction, Provider Unknown - 04/29/2016 3:59 PM PST Progress Notes by Ambika Hanson RPH at 04/29/16 155 Author: Ambika Hanson RPH Service: (none) Author Type: Pharmacist Filed: 04/29/16 1559 Date of Service: 04/29/161558 Status: Signed Mold Unloader: Ambika Hanson RPH (Pharmacist) Drug-Drug Interaction Report Ondansetron / QT Prolonging Agents 2 Significance: Major Warning: Additive QT interval prolongation may occur during coadministration of ondansetron and levofloxacin. Onset: Rapid Document Level: Possible Interacting Medications/Orders: Ondansetron Non-oral, Systemic QT Prolonging Agents 2 Oral or Non-Oral, Systemic 1. ondansetron Order ([id number]): ondansetron (ZOFRAN) injection 4 mg Route: Intravenous Start: 04/29/2016 1543 End: none Frequency: Every 6 Hours PRN 1. levofloxacin Order ([id number]): levofloxacin (LEVAQUIN) IVPB 250 mg Route: Intravenous Start: 04/30/2016 0700 End: none Frequency: Every 48 Hours Management Code: Professional review suggested Effects: Additive QT interval prolongation may occur during coadministration of ondansetron and levofloxacin. Mechanism: QT interval effects of each agent may be additive. Other mechanisms may exist. Management: ECG monitoring is recommended for patients coprescribed levofloxacin and ondans etron. Fela Landin MD - 04/29/2016 12:04 PM PST Progress Notes by Fela Mayberry MD at 04/29/16 1206 Author: Fela Mayberry MD Service: (none) Author Type: Physician Filed: 04/29/16 120 Date of Service: 04/29/161203 Status: Signed Mold Unloader: Fela Mayberry MD (Physician) Hospital Problem List: Principal Problem: Acute respiratory failure with hypoxia and hypercapnia (HCC) Active Problems: Hypothyroidism 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) HTN (hypertension) ESRD (end stage renal disease) on dialysis (HCC) Polysubstance abuse Hyponatremia Anemia of chronic disease Chronic obstructive asthma with exacerbation (HCC) Chronic steroid use The patient says that he feels 'ok' today. he denies any CP or SOB. . The following portions of the patient's history were reviewed and updated as appropriate: l aboratory data, radiologic studies, allergies, current medications, and problem list. allopurinol 100 mg Oral Daily budesonide-formoterol 2 puff Inhalation 2 times daily chlorhexidine gluconate 15 mL Mouth/Throat Q12H docusate sodium 100 mg Oral BID heparin (porcine) 1,000 Units Intracatheter Daily heparin (porcine) 500 Units Intracatheter Daily heparin (porcine) 5000 unit/0.5mL 5,000 Units Subcutaneous Q12H insulin lispro (human) 0-6 Units Subcutaneous 4 times per day ipratropium-albuterol 3 mL Nebulization Q6H [START ON 04/30/2016] levofloxacin 250 mg Intravenous Q48H levothyroxine 75 mcg Oral QAM AC methylPREDNISolone 40 mg Intravenous Q8H montelukast 10 mg Oral Nightly pantoprazole 40 mg Intravenous QAM AC sevelamer 2,400 mg Oral TID WC sodium bicarbonate 1,300 mg Oral BID vancomycin 1,000 mg Intravenous See Admin Instructions dextrose P.E. BP 119/58 mmHg | Pulse 84 | Temp(Src) 98.1 F (36.7 C) (Oral) | Resp 21 | Ht 1.702 m (5' 7") | Wt 85.4 kg (188 lb 4.4 oz) | BMI 29.48 kg/m2 | SpO2 100% General appearance: Pleasant, not in acute distress. Lungs: Good A/E to auscultation bilaterally and resonant. There are no wheezes. Heart: Regular rate and rhythm without any rub, gallop. Abdominal exam: Soft and nontender with normal bowel sounds. Extremities: Warm to touch with no leg edema. There is no cyanosis or clubbing. Neurological: Awake, alert, and oriented to time, place, and person. Lab Results Component Value Date BUN 40* 04/29/2016 CREATININE 7.5* 04/29/2016 EGFR 8* 04/29/2016 NA 139 04/29/2016 K 5.2* 04/29/2016 CL 101 04/29/2016 CO2 23 04/29/2016 CA 7.8* 04/29/2016 PHOS 5.6* 04/29/2016 MG 2.3 04/29/2016 ALB 2.9* 04/04/2014 HGB 12.3* 04/29/2016 I/O last 3 completed shifts: In: 2658.7 [I.V.:658.7; Other:2000] Out: 4300 [Emesis/NG output:300; Other:4000] Assessment and recommendations Mr. Potter is a 51 y.o. male patient with respiratory failure sec to volume overload Respiratory failure. extubated This is secondary to volume overload HD done emergently 04/28 No indication for DIGITAL PERFORMANCE ANALYST today ESRD As above Hyponatremia. Sec to increased free water intake Resolved HTN BP low Keep MAP > 75 Hyperkalemia. Mild HD in am Renal diet Anemia. No indication for Epo I discussed with the ICU team the case at the time of this encounter. FELA MAYBERRY MD FACP onversion Transact ion, Provider Unknown - 04/29/2016 11:42 AM PSTFormatting of this note might be different fr om the original. Therapy Progress Note by Venita Mendes PT at 04/29/16 2271 Author: Venita Mendes PT Service: (none) Author Type: Physical Therapist Filed: 04/29/16 9383 Date of Service: 04/29/16 1142 Status: Signed Mold Unloader: Venita Mendes PT (Physical Therapist) 04/29/16 1142 PT Last Visit PT Received On 04/29/16 Reason for Treatment Deconditioning Requires PT Follow Up Awaiting tx order Follow up PT Only? Yes (Ongoing amb and OOB assessment) Focus for Next Treatment Equipment Trial (FWW) PT Eval/Reassessment Date 04/29/16 Assistance Required 1 person;2 person (2nd person lines) Pipe Finisher Needed No Home Environment Type of Home Home one story Home Exterior Layout 1-3 steps;Rail bilateral Home Interior Layout Lives on main level with bedroom/bathroom Bathroom Shower/Tub Tub/shower unit Bathroom Toilet Standard Bathroom Equipment Shower chair Bathroom Accessibility Accessible via walker Home Equipment Cane single point Prior Function Level of [place] Independent with functional mobility;Independent with ADLs;Independe nt with IADLs Falls in Past Year No Lives With Spouse;Adult child(gary) (Acts as caregiver for younger son w/ CP, older son helps pt) Employment On disability Leisure (What's Hot) RUE Assessment RUE Assessment X (Limited d/t fistula) LUE Assessment LUE Assessment WFL RLE Assessment RLE Assessment WFL RLE Strength R Hip Extension 5/5 R Knee Extension 5/5 R Ankle Dorsiflexion 5/5 R Ankle Plantar Flexion 5/5 LLE Assessment LLE Assessment WFL Strength LLE L Hip Extension 5/5 L Knee Extension 5/5 L Ankle Dorsiflexion 5/5 L Ankle Plantar Flexion 5/5 Cognition Overall Cognitive Status WFL Orientation Level Oriented Sensation Light Touch No apparent deficits Vision-Basic Assessment Current Vision Wears glasses Assessment of Patient Status Assessment of Patient Status Impaired proprioception;Decreased endurance Prognosis Should progress with skilled therapy intervention Safety Devices Safety Devices in Place (Call light in reach) Precautions Other Precautions Fall risk Activity Tolerance Endurance Good Plan Treatment/Interventions Balance training;Gait training;Stair training PT Frequency 5-7x/wk;Once per day Care Duration (# of days) 7 # of days Recommendation Recommendations Home Assist;OP PT Equipment Recommended Other (Comment) (See below) Barriers to Discharge Physical Deficits Impacting Functional [place] Recommendation Comments Pt demonstrates good strength and requires little assistance for in -bed activity. Pt's balance is poor, demonstrates ataxic gait, and is at increased risk of falls. Pt has help available at home 14/01 but if balance and gait deficits continue to pers ist, pt would benefit from OP PT. 04/29/16 1142 PT Last Visit PT Received On 04/29/16 Reason for Treatment Deconditioning Requires PT Follow Up Awaiting tx order Follow up PT Only? Yes (Ongoing amb and OOB assessment) Focus for Next Treatment Equipment Trial (FWW) PT Eval/Reassessment Date 04/29/16 Assistance Required 1 person;2 person (2nd person lines) Pipe Finisher Needed No Precautions Other Precautions Fall risk Other Comments Comments Chart reviewed. Pt is a 51 y.o. w/ significant PMH of T2DM, ESRD, on HD, hypothyr oidism, gout, asthma HTN, HPL, anemia of chronic disease, R IJ thrombosis, polysubstance abu se. Pt has reported URI symptoms in recent weeks. Pt transferred from [facility] d/ hy poxic respiratory failure. Pt supine in bed upon entry, agreeable to PT. Pt's is pres ent for session. VS upon entry BP 135/63, HR 86, SPO2 100% on RA. Pt describes no pain curr ently, is eager to participate in PT. Pt's strength was good th/o LE, reported no sensation deficits. Pt mobilized supine to sitting EOB w/ SBA and sat EOB w/ SBA. Pt performed STS w/ SBA at EOB. Pt's initial standing balance was good w/ wide stance. Pt performed Tinetti -SAM and scored a 15/28, indicating a high risk for falls. Pt amb 15' in room w/ Min-Mod A , displayed ataxic gait and high guard, pt had multiple stumbles requiring Mod A to correct. Pt had some difficulty w/ planning and using vision to place feet. Pt returned to recline r chair and performed STS w/ SBA and verbal cues. VS at exit HR 88, SPO2 100%, BP 125/64. Pt's RN aware of pt's fall risk, instructed pt on use of call light for all OOB activity. P t left sitting in chair, call light in reach, needs met. Cognition Overall Cognitive Status WFL Orientation Level Oriented Bed Mobility Rolling Standby assist Supine to Sit Standby assist Transfers Sit to/from Stand Standby assist Mobility Ambulation Assistance Minimal assist;Moderate assist Maximal Ambulation Distance (feet) 15 Total Ambulation Distance (feet) 15 Distance limited by? Patient's ability Pattern Decreased malcolm;Steppage right;Steppage left;Ataxic;Wide base (High guard) Assistive Device None;Other (Comment) (Trial FWW next session) Balance Balance Yes Standardized Test Tinetti Performance Oriented Mobility Assessment (High risk for falls) Modalities Modalities Other therapy Other Therapy Education on use of call light, PT POC, use of assistive device in future ses sions d/t balance issues. Activity Tolerance Activity Tolerance Patient tolerated treatment without report of fatigue Nurse Made Aware Yes Safety Devices Safety Devices in Place (Call light in reach) Plan Treatment/Interventions Balance training;Gait training;Stair training PT Frequency 5-7x/wk;Once per day Care Duration (# of days) 7 # of days Recommendation Recommendations Home Assist;OP PT Equipment Recommended Other (Comment) (See below) Barriers to Discharge Physical Deficits Impacting Functional [place] Recommendation Comments Pt demonstrates good strength and requires little assistance for in -bed activity. Pt's balance is poor, demonstrates ataxic gait, and is at increased risk of falls. Pt has help available at home 14/01 but if balance and gait deficits continue to pers ist, pt would benefit from OP PT. 04/29/16 1142 Tinetti Assessment Tool: Balance Tasks Sitting balance 1 Arises 2 Attempts to arise 2 Immediate standing balance 0 Standing balance 1 Nudged 1 Eyes closed 0 Turning 360 degrees - steps 1 Turning 360 degrees - steadiness 0 Sitting down 1 Balance score: 9 Tinetti Assessment Tool: Gait Tasks Initiation of gait 1 Step length & height - right swing foot 0 Step length & height - right foot 1 Step length & height - left swing foot 0 Step length & height - left foot 1 Step symmetry 1 Step continuity 0 Path 1 Trunk 1 Walking stance 0 Gait score: 6 Tinetti Assessment Tool: Total Score Total score (balance + gait): 15 Comment High risk for falls onver quique Transaction, Provider Unknown - 04/29/2016 10:29 AM PST Case Management by Carmina Monge RN at 04/29/16 1029 Author: Carmian Monge RN Service: (none) Author Type: Cheesemaker Helper Filed: 04/29/16 1032 Date of Service: 04/29/16 1029 Status: Signed Mold Unloader: Carmina Mogne RN (Cheesemaker Helper) 04/29/16 1024 Discharge Planning Evaluation Admitting Diagnosis Acute respiratory failure Readmission No Living Arrangements Spouse/significant other;Children;Family members Support Systems Spouse/significant other;Children;Family members Type of Residence Private residence House type House-1 story Steps to enter 2 Bathrooms on 1st Floor 1-Full Independent with ADL's Yes Independent with Mobility Yes Home Care Services No Caregiver after Discharge Yes Caregiver Name Shyanne Potter Relationship to Patient spouse Phone number [phone] Mental Status Oriented Prior functional status independent Anticipated Discharge Plan Post Acute Care Needs (Dialysis M-W-F) Plan communicated to patient/family Yes Resources Financial concerns No Transportation issues No Patient/Family concerns No Prescription Plan Yes Name of Pharmacy [facility] Previous home health equipment No Vascular access device Yes Anticipated Disposition Facility Type Home Met with patient and his Shyanne and discussed discharge planning, Pt is a 51 y.o., male admitted with respiratory failure. [place] with his and family. Pt states that he has good support and all t he help he needs. Pt's sister takes him to dialysis [facility]. Pt denies needing and DME, no home oxygen, no rx blood thinners. Patient's PCP is:Andry Deng Patient's insurance: medicare, medicaid Coverage concerns: no Medication coverage/concerns: no [facility] Bedside Delivery: no Community resources utilized / needed: dialysis Assistance in transportation: family, pt doesn't drive Identification of any specific education / training: tbd Barriers to Discharge / Alternative housing needed: no Anticipated DCP: Home Carmina Monge RN CM Nehal Pham MD - 04/29/2016 8:30 AM PSTFormatting of this note might be different from t barbie original. Progress Notes by Nehal Simpson MD at 04/29/16829 Author: Nehal Simpson MD Service: Curbstone Setter Author Type: Physician Filed: 04/29/16 0854 Date of Service: 04/29/16829 Status: Signed Mold Unloader: Nehal iSmpson MD (Physician) [facility] Service: Curbstone Setter Progress Note Carol Potter 51 y.o. Hospital Day: LOS: 1 day Post-Op Day: * No surgery found * Consulting Physicians Treatment Team: Consulting Physician: Fela Mayberry MD Admitting Provider: Nehal Simpson MD SUBJECTIVE Patient Summary: The patient is a 51 y.o. male with significant past medical history of T2DM, ESRD, on HD, but still able to urinate and is on daily furosemide; hypothyroidism, gout, asthma on maintenance Advair and chronic prednisone therapy. HTN, HPL, anemia of chr onic disease, R IJ thrombosis, polysubstance abuse, who was brought to [facility] due to shortness of breath. Per report, he missed his hemodialysis on 04/27/16. He apparently been ill with increasing cough and URI symptoms for several weeks. ICU Timeline: 04/28: intubated in outside hospital. R femoral placed. done care of Nephrology. Blood and sputum CS pending. Events Overnight: Extubated, and doing well. Pleasant and in no discomfort. With leuk ocytosis -steroid response vs acute pulmonary infection. Blood, sputum CS pending. SCHEDULED MEDICATIONS allopurinol 100 mg Oral Daily budesonide-formoterol 2 puff Inhalation 2 times daily chlorhexidine gluconate 15 mL Mouth/Throat Q12H docusate sodium 100 mg Oral BID heparin (porcine) 1,000 Units Intracatheter Daily heparin (porcine) 500 Units Intracatheter Daily heparin (porcine) 5000 unit/0.5mL 5,000 Units Subcutaneous Q12H insulin lispro (human) 0-6 Units Subcutaneous 4 times per day ipratropium-albuterol 3 mL Nebulization Q6H [START ON 04/30/2016] levofloxacin 250 mg Intravenous Q48H levothyroxine 75 mcg Oral QAM AC methylPREDNISolone 40 mg Intravenous Q8H montelukast 10 mg Oral Nightly pantoprazole 40 mg Intravenous QAM AC sevelamer 2,400 mg Oral TID WC sodium bicarbonate 1,300 mg Oral BID vancomycin 1,000 mg Intravenous See Admin Instructions vancomycin 1,500 mg Intravenous Once CONTINUOUS INFUSIONS dextrose fentaNYL in NS 5 mcg/mL 10 mcg/hr (04/28/16 1200) norepinephrine in D5W 64 mcg/mL Stopped (04/28/16 3214) propofol 10 mcg/kg/min (04/29/16 0122) OBJECTIVE VITAL SIGNS Temp: [97.9 F (36.6 C)-99.1 F (37.3 C)] 98 F (36.7 C) Heart Rate: [74-90] 78 Resp: [15-21] 15 BP: (74-165)/(49-89) 121/64 mmHg FiO2 : [21 %-25 %] 25 % Intake/Output Summary (Last 24 hours) at 04/29/16 0830 Last data filed at 04/29/16 0600 Gross per 24 hour Intake 2658.7 ml Output 4300 ml Net -1641.3 ml EXAM GEN: awake, alert, oriented x3, NAD NEURO: PERRLA, EOMI, no facial asymmetry, moves all extremities well GCS: 15 HEENT: sclerae clear, nonicteric, oral mmm, pink, no exudates ; puffy face; poor dentition NECK: supple, trachea midline CV: PMI laterally displaced, RRR, S1/S2, flow murmur along R parasternal border, peripheral pulses palpable, cap refill brisk LUNGS: Equal in expansion, resonant to percussion, bibasilar rales, wheezing resolved today ABD: soft, nondistended, nontender to palpation, no masses, no hepatosplenomegaly EXTR: no clubbing or cyanosis, trace edema of the legs and arms; toe nails thickened and hy perpigmented SKIN: warm, dry, no rash or mottling; no e/o skin breakdown over the occiput, scapulae, elb ows, sacrum or heels LINES/TUBES: R femoral CVC (04/28), PIV (04/28) DATA Recent Labs Lab 04/29/16 0437 04/29/16316 WBC 37.63* 40.72* RBC 4.18* 4.32 HGB 12.3* 12.9* HCT 37.9* 40.3 MCV 90.8 93.2 MCH 29.5 29.8 MCHC 32.4 32.0 RDW 53.8* 55.6* PLT 188 182 MPV 7.7 8.0 BANDSABS 3.76* 2.44* MORPH NORMAL PLT MORPH 1+ Recent Labs Lab 04/29/16 03104/28/16 1828 04/28/16 1349 NA 139 136 136 K 5.2* -- -- CL 101 -- -- CO2 23 -- -- ANIONGAP 20 -- -- GLUF 194* -- -- BUN 40* -- -- CREATININE 7.5* -- -- BCR 5 -- -- CA 7.8* -- -- EGFR 8* -- -- PHOS 5.6* -- -- MG 2.3 -- -- No results for input(s): INR in the last 168 hours. IMAGING Xr Chest 1 View 04/28/2016 1. Interval advancement of a well-positioned endotracheal tube. 2. Nasogastric tube, as above. 3. Bilateral lung opacities, as above. LEM LIST Principal Problem: Acute respiratory failure with hypoxia and hypercapnia (HCC) Active Problems: Hypothyroidism 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) HTN (hypertension) ESRD (end stage renal disease) on dialysis ([facility]) Polysubstance abuse Hyponatremia Anemia of chronic disease Chronic obstructive asthma with exacerbation ([facility]) Chronic steroid use Resolved Problems: * No resolved hospital problems. * ASSESSMENT & PLAN NEURO: Polysubstance abuse -cigarettes and marijuana. Will need counseling regarding this. No acute issues currently. CV: Hypertension. Currently normotensive. Will continue to monitor closely. May need to resu me home dose of amlodipine if this becomes an issue. PULM: Severe uncontrolled asthma with exacerbation. Apparently had been on prednisone for a wh ile now. Presenting with increasing dyspnea and diffuse wheezing. Was given 125 mg of Solume drol in OSH. Titrating IV methylprednisolone today to q8h, and switching to nebulized VIDHYA/S KASH. Upper respiratory tract infection. Reportedly was also taking Nyquil for congestion and URI symptoms. Rapid flu test negative, while viral DFA is negative. On droplet isolation unt il prelim viral DFA is available. Given history of MSSA infection, have started on Vancomyci n (allergic to PCN), already on renally dose Levofloxacin for atypical organisms. Awaiting t stephania aspirate for CS. Acute respiratory failure with hypoxemia and hypercapnea. Had an elevated pCO2 and low O 2 on initial blood gas. Intubated, and ventilated. Repeat blood gas here in our unit reveale d a predominant metabolic acidosis, likely from his renal disease. Now extubated and doing w ell on nasal cannula. Active smoker of marijuana and tobacco. Encourage complete cessation. GI/NUTRITION: Renal diet GERD. On a PPI. Dark brown NG output noted. No vomiting, and no evidence of active UGI b leed. Continue PPI for now. Liver enzymes within normal. RENAL/LYTES: ESRD on HD. Missed HD on 04/27. Dr Mayberry of Nephrology consulted. Hyponatremia. Likely reflective of his overall fluid status. Now normalized with HD Urinary retention. Unable to insert a andrews catheter (a cudet was also used) -there seem s to be an obstruction within the meatus. He usually urinates twice a day. No evidence of ur inary retention currently. Will let him void on his own. ID: Reported upper respiratory symptoms with cough and congestion. Rapid flu negative, while viral DFA is pending. Currently afebrile. With leukocytosis and infiltrates on imaging, and so levofloxacin IV started; Vancomycin started given sudden increase in his WBC. Awaiting b lood and tracheal aspirate CS. HEME: Anemia of chronic disease. H/H from outside labs within normal. Continue to watch Hgb wh ile acutely ill. Leukocytosis. Leukemoid response to steroids vs worsening infection. Will continue to wa tch closely. ENDO: IDDM. POC glucose, SSI. Endotool if BS >180 x2 MUSC/SKIN: Early ambulation if possible. PROPHYLAXIS: Stress ulcer prophylaxis: PPI DVT prophylaxis: heparin SQ 12 VAP bundle: chlorhexadine oral care, HOB >30 degrees. Disposition: Doing well post extubation. May be able to transition to acute care if with c ontinuing progress. Code Status: Full Code *Please bill 45 minutes of high complexity time spent evaluating the patient, reviewing the data and formulating a plan exclusive of all other procedures. Nehal Simpson MD 04/29/2016 onversion Trans action, Provider Unknown - 04/29/2016 8:10 AM PST Progress Notes by Curtis Victoria RPH at 04/29/16 0810 Author: Curtis Victoria RPH Service: (none) Author Type: Pharmacist Filed: 04/29/16809 Date of Service: 04/29/16809 Status: Signed Mold Unloader: Curtis Victoria RPH (Pharmacist) Initiation of Vancomycin Pharmacy Dosing Carol Potter 51 y.o. male 1.702 m (5' 7") 85.4 kg (188 lb 4.4 oz) Body mass index is 29.48 kg/(m^2). [place] Body Weight: Adjusted Body Weight: CREATININE Date Value Ref Range Status 04/29/2016 7.5* 0.70 - 1.30 mg/dL Final Comment: Testing performed at [facility], [address] [place] [address] Estimated CrCl : CREATININE: 7.5 mg/dL ABNORMAL (04/29/16316) Estimated creatinine clearance - 11.9 mL/min Indications: CAP Dose per Protocol: Vanco 1500mg load then vanco 1000mg after each HD session First Dose to be Given: 04/29 at 0830 Vancomycin Trough Due: none Goal Trough for Vancomycin: 15-20 mcg/mL Pharmacist: CURTIS VICTORIA 04/29/2016 8:10 AM onver quique Transaction, Provider Unknown - 04/29/2016 3:40 AM PST Nurse Progress Note by Marivel Sapp RN at 04/29/16339 Author: Marivel Sapp RN Service: (none) Author Type: Registered Nurse Filed: 04/29/169 Date of Service: 04/29/16339 Status: Signed Mold Unloader: Marivel Sapp RN (Registered Nurse) Pt extubated and tolerated well. He was cleaned up and provided oral care, fresh linens. Wi ll continue monitor. onver quique Transaction, Provider Unknown - 04/28/2016 4:18 PM PDT Therapy Progress Note by Devaughn Ramos PT at 04/28/16 1455 Author: Devaughn Ramos PT Service: (none) Author Type: Physical Therapist Filed: 11/05/16 1619 Date of Service: 04/28/168 Status: Signed Mold Unloader: Devaughn Ramos, PT (Physical Therapist) 04/28/16 1618 PT Last Visit PT Received On 04/28/16 Requires PT Follow Up On hold Other Comments Comments pt. intubated at this time will continue to f/u as appropriate onver quique Transaction, Provider Unknown - 04/28/2016 1:39 PM PDT Progress Notes by Ambika Hanson RPH at 04/28/16 1339 Author: Ambika Hanson RPH Service: (none) Author Type: Pharmacist Filed: 04/28/161338 Date of Service: 04/28/161338 Status: Signed Mold Unloader: Ambika Hanson RPH (Pharmacist) Patient is a HD patient. Adjusted Levofloxacin to 250mg IVPB Q48 hours. Next dose on 04/30 . (first dose was given at [facility]). No other changes at this time. onver quique Transaction, Provider Unknown - 04/28/2016 12:14 PM PDT Progress Notes by Franco Cesar RPH at 04/28/16 1214 Author: Franco Cesar RPH Service: Pharmacy Author Type: Pharmacist Filed: 04/28/16 1214 Date of Service: 04/28/16 1214 Status: Signed Mold Unloader: Franco Cesar RPH (Pharmacist) >> FRANCO CESAR 04/28/2016 11:59 Renal Dosing Monitoring: Carol Potter 51 y.o. male Pharmacy dosing for renal function per Dr. Simpson Awaiting height/weight and labs Pharmacy will continue monitoring patient for appropriate dosing per renal function. 04/28/2016 11:58 AM Pharmacist: FRANCO CESAR docume nted in this encounter H&P Notes Nehal Simpson MD - 04/28/2016 11:49 AM PDT H&P by Nehal Simpson MD at 04/28/16 1142 Author: Nehal Simpson MD Service: Curbstone Setter Author Type: Physician Filed: 04/29/16 0832 Date of Service: 04/28/16 114 Status: Addendum Mold Unloader: Nehal Simpson MD (Physician) Related Notes: Original Note by Nehal Simpson MD (Physician) filed at 04/28 6385 [facility] Service: Curbstone Setter Admission History & Physical Carol Potter 51 y.o. Date of Admission: 04/28/2016 Requesting Physician: Dr. Faulkner, Emergency Department, [facility] Indication for ICU Admission: hypoxic respiratory failure History Obtained From: chart review CHIEF COMPLAINT: Acute dyspnea HISTORY OF PRESENT ILLNESS The patient is a 51 y.o. male with significant past medical history of T2DM, ESRD, on HD, b ut still able to urinate and is on daily furosemide; hypothyroidism, gout, asthma on mainten ance Advair and chronic prednisone therapy. HTN, HPL, anemia of chronic disease, R IJ throm bosis, polysubstance abuse, who was brought to the [facility] due to shortness o f breath. Per report, he missed his hemodialysis on 04/27/16 because he been sick and ill wit h URI symptoms (reportedly was taking Nyquil for the past days). We have yet to corroborate reports from his family. -PER FAMILY: He is a strong smoker of marijuana and is actively sm oking cigarettes. He also has been drinking more fluids over the past week AND NOT alcohol. They report that he has had an increase in cough and wheezing for the past month. He also a pparently been complaining of epigastric pain and has had nausea and vomiting. In [facility], he was found to be in severe respiratory distress with diffuse wheezing, and hypoxemia (sats reported in the 80s), and so he was intubated and placed on the mechanical ventilator. Request for transfer was made for further care. Preliminary investigation showed an elevated WBC at 24K, Na low at 124, pH 7.2 with a pCO2 of 52, pO2 33. CXR with interstitial infiltrates, mostly in the upper lobes. REVIEW OF SYSTEMS Review of systems not obtained due to intubated. PAST MEDICAL HISTORY Past Medical History Diagnosis Date Hyperlipidemia Hypertension Thyroid disease Anemia Abdominal pain, right upper quadrant 04/13/2012 Dialysis patient ([facility]) GI bleed 04/30/2012 from coumadin Walker as ambulation aid Gout Asthma pt not using inhaler any more, no symptoms DVT (deep venous thrombosis) ([facility]) x3 AV fistula ([facility]) lt arm Knee pain, right 07/06/2012 MSSA (methicillin susceptible Staphylococcus aureus) infection 04/11/2012 Anemia due to blood loss 04/30/2012 Amphetamine and other psychostimulant dependence, continuous ([facility]) 04/02/2012 Hyperphosphatemia 05/24/2012 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 Rash and nonspecific skin eruption 04/03/2012 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 Neuromuscular disorder ([facility]) neuropathy Hyperkalemia 11/09/2013 Chronic obstructive asthma with exacerbation ([facility]) 10/27/2013 SOB (shortness of breath) 10/27/2013 Diabetes mellitus type I ([facility]) PAST SURGICAL HISTORY Past Surgical History Procedure Laterality Date Unlisted procedure arthroscopy shoulder rt , ligaments Superficialization of av fistula Right 03/30/2014 Procedure: AV FISTULA - SUPERFICIALIZATION; Surgeon: Oskar Meyer MD; Location: [facility]; Service: Vascular; Laterality: Right; Av fistula placement Right 02/09/2014 Procedure: AV FISTULA; Surgeon: Oskar Meyer MD; Location: [facility] MA[facility] OR; Service: Vascul ar; Laterality: Right; Av fistula repair Left 07/11/2012 Procedure: AV FISTULA - GRAFT REPAIR/REVISION; Surgeon: Oskar Meyer MD; Location: [facility]; Service: Vascular; Laterality: Left; Superficialization of brachiobasilic fistula and right IJ perm cath insertion Dialysis fistula creation Left 07/11/2012 Procedure: DIALYSIS CATHETER - INSERTION; Surgeon: Oskar Meyer MD; Location: [facility] MAIN O R; Service: Vascular; Laterality: Left; removed dialysis catheter from left neck and plac ed new on in left chest, attempted in right neck but unable to place Catheter removal Right 07/07/2012 Procedure: DIALYSIS CATHETER - REMOVAL; Surgeon: Oskar Meyer MD; Location: [facility] BEDSIDE PROCEDURE; Service: General; Laterality: Right; perm cath Dialysis fistula creation Left 07/07/2012 Procedure: DIALYSIS CATHETER - INSERTION; Surgeon: Oskar Meyer MD; Location: [facility] BEDSID E PROCEDURE; Service: General; Laterality: Left; temporary dialysis catheter Knee arthroscopy Right 07/07/2012 Procedure: KNEE - ARTHROSCOPY; Surgeon: Favio Raza MD; Location: [facility] MA[facility] OR; S ervice: Orthopedics; Laterality: Right; After 1530 Av fistula placement Left 05/06/2012 Procedure: AV FISTULA; Surgeon: Oskar Meyer MD; Location: [facility] OR; Service: Vascul ar; Laterality: Left; Left arm possible right Colonoscopy with egd N/A 05/01/2012 Procedure: COLONOSCOPY W/ EGD; Surgeon: John Singleton MD; Location: [facility] ENDOSCOPY; Se rvice: Gastroenterology; Laterality: N/A; ALLERGIES Allergies Allergen Reactions Azithromycin Other (See Comments) Unknown Lisinopril Other (See Comments) "makes me sweat and knocked me out" Penicillins Other (See Comments) Unknown 10/08/12: Patient tolerated Ceftriaxone during previous admissions. MEDICATIONS PRIOR TO ADMISSION Prior to Admission medications Medication Sig Start [...] fo r Wheezing. Took last night 10/28/13 10/28/14 Karri Huff MD allopurinol (ZYLOPRIM) [...] 2 (two) times daily. Historica l Provider FAMILY HISTORY OF SIGNIFICANCE Family History Problem Relation Age of Onset Heart disease Mother Heart disease Father Diabetes Father Cancer Father colon cancer SOCIAL HISTORY Social History Social History Marital Status: Spouse Name: Shyanne Number of Children: N/A Years of Education: N/A Occupational History Not on file. Social History Main Topics Smoking status: Former Smoker -- 1.00 packs/day for 23 years Smokeless tobacco: Never Used Comment: quit 17 yrs ago Alcohol Use: No Drug Use: No Comment: last used marijuana on 04/29/12, quit methaamphetamine in mar 2012 after ARF Sexual Activity: Not on file Other Topics Concern Not on file Social History Narrative , LIVES WITH . HAS NO BIOLOGICAL KIDS; 2 STEP KIDS. CURRENTLY UNEMPLOYED, BEFOR E WORKED AT [employer] IN [place]. Quit METHAMPHETAMINES PER PATIENT after t he ARF in mar 2012. FATHER HAS COLON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 | | | | [facility], [address] | | | | | | [place] | | | | | | [address] | | | | + + + + + + | % Segmented | 97.03Comment: Testing | % | EXTERNAL | | | | performed at [facility], [address] | | LAB | | | Neutrophils | [address], | | | | | | [place] [address] | | | | + + + + + + | % | 1.58Comment: Testing | % | EXTERNAL | | | Lymphocytes | performed at [facility], [address] | | LAB | | | | [address], | | | | | | [place] [address] | | | | + + + + + + | % Monocytes | 1.34Comment: Testing | % | EXTERNAL | | | | performed at [facility], [address] | | LAB | | | | [address], | | | | | | [place] [address] | | | | + + + + + + | % | 0.00Comment: Testing | % | EXTERNAL | | | Eosinophils | performed at [facility], [address] | | LAB | | | | [address], | | | | | | [place] [address] | | | | + + + + + + | % Basophils | 0.05Comment: Testing | % | EXTERNAL | | | | performed at [facility], [address] | | LAB | | | | [address], | | | | | | [place] [address] | | | | + + + + + + | Absolute | 30.78 (H)Comment: | 1.90 - 7.40 | EXTERNAL | | | Segmented | Testing performed at | K/uL | LAB | | | Neutrophils | [facility], [address] | | | | | | [place] | | | | | | [address] | | | | + + + + + + | Absolute | 0.50 (L)Comment: Testing | 1.00 - 3.90 | EXTERNAL | | | Lymphocytes | performed at [facility], [address] | K/uL | LAB | | | | [address], | | | | | | [place] [address] | | | | + + + + + + | Absolute | 0.43Comment: Testing | 0.00 - 0.80 | EXTERNAL | | | Monocytes | performed at [facility], [address] | K/uL | LAB | | | | [address], | | | | | | [place] [address] | | | | + + + + + + | Absolute | 0.00Comment: Testing | 0.00 - 0.50 | EXTERNAL | | | Eosinophils | performed at [facility], [address] | K/uL | LAB | | | | [address], | | | | | | [place] [address] | | | | + + + + + + | Absolute | 0.02Comment: Testing | 0.00 - 0.10 | EXTERNAL | | | Basophils | performed at [facility], [address] | K/uL | LAB | | | | [address], | | | | | | [place] [address] | | | | + + + + + + | RBC | RBC AND PLT MORPHOLOGY | | EXTERNAL | | | Morphology | APPEAR NORMALComment: | | LAB | | | | 2+TOXIC | | | | | | GRANULATIONTesting | | | | | | performed at [facility], [address] | | | | | | [address], | | | | | | [place] [address] | | | | + + + + + + | Differentia | SLIDE SCANNED, AGREES | | EXTERNAL | | | l Comments | WITH AUTOMATED | | LAB | | | | RESULTS.Comment: Testing | | | | | | performed at [facility], [address] | | | | | | [address], | | | | | | [place] [address] | | | | + + + + + + + + | Specimen | + + | Blood specimen | | (specimen) | + + + +---------+ + + | Performing | Address | City/State/Zipcode | Phone Number | | Organization | | | | + +---------+ + + | EXTERNAL LAB | | | | + +---------+ + + Phosphorus (04/30/2016 6:01 AM PST) + + + + + + | Component | Value | Ref Range | Performed | Pathologist | | | | | At | Signature | + + + + + + | PHOSPHORUS | 4.3Comment: Testing | 2.3 - 4.8 mg/dL | EXTERNAL | | | | performed at [facility], [address] | | LAB | | | | [address], | | | | | | [place] [address] | | | | + + + + + + + + | Specimen | + + | Blood specimen | | (specimen) | + + + +---------+ + + | Performing | Address | City/State/Zipcode | Phone Number | | Organization | | | | + +---------+ + + | EXTERNAL LAB | | | | + +---------+ + + Magnesium (04/30/2016 6:01 AM PST) + + + + + + | Component | Value | Ref Range | Performed | Pathologist | | | | | At | Signature | + + + + + + | Magnesium | 2.8 (H)Comment: Testing | 1.7 - 2.4 mg/dL | EXTERNAL | | | | performed at [facility], [address] | | LAB | | | | [address], | | | | | | [place] [address] | | | | + + + [...] + +---------+ + + Basic Metabolic Panel (04/30/2016 6:01 AM PST) + + + + + + | Component | Value | Ref Range | Performed | Pathologist | | | | | At | Signature | + + + + + + | Na | 134 (L)Comment: Testing | 135 - 145 | EXTERNAL | | | | performed at [facility], [address] | mmol/L | LAB | | | | [address], | | | | | | [place] [address] | | | | + + + + + + | K | 4.7Comment: Testing | 3.5 - 4.9 | EXTERNAL | | | | performed at [facility], [address] | mmol/L | LAB | | | | [address], | | | | | | [place] [address] | | | | + + + + + + | Cl | 96 (L)Comment: Testing | 99 - 109 mmol/L | EXTERNAL | | | | performed at [facility], [address] | | LAB | | | | [address], | | | | | | [place] [address] | | | | + + + + + + | CO2 | 22 (L)Comment: Testing | 23 - 32 mmol/L | EXTERNAL | | | | performed at [facility], [address] | | LAB | | | | [address], | | | | | | [place] [address] | | | | + + + + + + | Anion Gap | 21 (H)Comment: Testing | 5 - 20 mmol/L | EXTERNAL | | | | performed at [facility], [address] | | LAB | | | | [address], | | | | | | [place] [address] | | | | + + + + + + | Glucose, | 248 (H)Comment: Testing | 65 - 99 mg/dL | EXTERNAL | | | Fasting | performed at [facility], [address] | | LAB | | | | [address], | | | | | | [place] [address] | | | | + + + + + + | BUN | 74 (H)Comment: Testing | 8 - 25 mg/dL | EXTERNAL | | | | performed at [facility], [address] | | LAB | | | | [address], | | | | | | [place] [address] | | | | + + + + + + | Creatinine | 8.5 (H)Comment: Testing | 0.70 - 1.30 | EXTERNAL | | | | performed at [facility], [address] | mg/dL | LAB | | | | [address], | | | | | | [place] [address] | | | | + + + + + + | BUN/Creatin | 9Comment: Testing | | EXTERNAL | | | ine Ratio | performed at [facility], [address] | | LAB | | | | [address], | | | | | | [place] [address] | | | | + + + + + + | Calcium | 7.8 (L)Comment: Testing | 8.5 - 10.5 | EXTERNAL | | | | performed at [facility], [address] | mg/dL | LAB | | | | [address], | | | | | | [place] [address] | | | | + + + [...] | | | | | | Janna [facility], | | | | | | [place] [address] | | | | + + + + + + + + | Specimen | + + | Blood specimen | | (specimen) | + + + +---------+ + + | Performing | Address | City/State/Zipcode | Phone Number | | Organization | | | | + +---------+ + + | EXTERNAL LAB | | | | + +---------+ + + POC Glucose (04/30/2016 5:17 AM PST) + + + + + + | Component | Value | Ref Range | Performed | Pathologist | | | | | At | Signature | + + + + + + | Glucose, | 312 (H)Comment: Testing | 65 - 99 mg/dL | EXTERNAL | | | Fingerstick | performed at [facility];[address] | | LAB | | | | [address];[place] | | | | | | [address] [...] | + +---------+ + + POC Glucose (04/29/2016 9:33 PM PST) + + + + + + | Component | Value | Ref Range | Performed | Pathologist | | | | | At | Signature | + + + + + + | Glucose, | 301 (H)Comment: Testing | 65 - 99 mg/dL | EXTERNAL | | | Fingerstick | performed at [facility];[address] | | LAB | | | | [address];[place] | | | | | | [address] | | | | + + + + + + + + | Specimen | + + | | + + + +---------+ + + | Performing | Address | City/State/Zipcode | Phone Number | | Organization | | | | + +---------+ + + | EXTERNAL LAB | | | | + +---------+ + + Potassium (04/29/2016 4:31 PM PST) + + + + + + | Component | Value | Ref Range | Performed | Pathologist | | | | | At | Signature | + + + + + + | K | 4.7Comment: Testing | 3.5 - 4.9 | EXTERNAL | | | | performed at [facility];[address] | mmol/L | LAB | | | | [facility];[place], [place] | | | | | | [address] | | | | + + + + + + + + | Specimen | + + | Blood specimen | | (specimen) | + + + +---------+ + + | Performing | Address | City/State/Zipcode | Phone Number | | Organization | | | | + +---------+ + + | EXTERNAL LAB | | | | + +---------+ + + Phosphorus (04/29/2016 4:31 PM PST) + + + + + + | Component | Value | Ref Range | Performed | Pathologist | | | | | At | Signature | + + + + + + | PHOSPHORUS | 4.7Comment: Testing | 2.3 - 4.8 mg/dL | EXTERNAL | | | | performed at [facility];[address] | | LAB | | | | [address];[place] | | | | | | [address] | | | | + + + + + + + + | Specimen | + + | Blood specimen | | (specimen) | + + + +---------+ + + | Performing | Address | City/State/Zipcode | Phone Number | | Organization | | | | + +---------+ + + | EXTERNAL LAB | | | | + +---------+ + + Magnesium (04/29/2016 4:31 PM PST) + + + + + + | Component | Value | Ref Range | Performed | Pathologist | | | | | At | Signature | + + + + + + | Magnesium | 2.5 (H)Comment: Testing | 1.7 - 2.4 mg/dL | EXTERNAL | | | | performed at [facility];[address] | | LAB | | | | [address];[place] | | | | | | [address] | | | | + + + + + + + + | Specimen | + + | Blood specimen | | (specimen) | + + + +---------+ + + | Performing | Address | City/State/Zipcode | Phone Number | | Organization | | | | + +---------+ + + | EXTERNAL LAB | | | | + +---------+ + + POC Glucose (04/29/2016 4:27 PM PST) + + + + + + | Component | Value | Ref Range | Performed | Pathologist | | | | | At | Signature | + + + + + + | Glucose, | 274 (H)Comment: Testing | 65 - 99 mg/dL | EXTERNAL | | | Fingerstick | performed at [facility];[address] | | LAB | | | | [address];[place], [place] | | | | | | [address] | | | | + + + + + + + + | Specimen | + + | | + + + +---------+ + + | Performing | Address | City/State/Zipcode | Phone Number | | Organization | | | | + +---------+ + + | EXTERNAL LAB | | | | + +---------+ + + POC Glucose (04/29/2016 12:46 PM PST) + + + + + + | Component | Value | Ref Range | Performed | Pathologist | | | | | At | Signature | + + + + + + | Glucose, | 248 (H)Comment: Testing | 65 - 99 mg/dL | EXTERNAL | | | Fingerstick | performed at [facility];[address] | | LAB | | | | [address];[place] | | | | | | [address] | | | | + + + + + + + + | Specimen | + + | | + + + +---------+ + + | Performing | Address | City/State/Zipcode | Phone Number | | Organization | | | | + +---------+ + + | EXTERNAL LAB | | | | + +---------+ + + PATHOLOGY CONSULT REQUEST (04/29/2016 4:37 AM PST) + + + + + + | Component | Value | Ref Range | Performed | Pathologist | | | | | At | Signature | + + + + + + | Pathologist | Comment: Review of CBC | | EXTERNAL | | | Review 1 | collected 04/29/16. I | | LAB | | | | agree with the cell | | | | | | counts. The presence | | | | | | of neutrophilia is | | | | | | confirmed. The | | | | | | neutrophils show a left | | | | | | shift without toxic | | | | | | changes. The history | | | | | | of respiratory distress | | | | | | and steroid | | | | | | administration is noted. | | | | | | Please correlate | | | | | | clinically. Ted | | | | | | 04/30/16 BS/trTesting | | | | | | performed at [facility];[address] | | | | | | [address] [facility];[place], [place] | | | | | | [address] | | | | + + + + + + + + | Specimen | + + | | + + + +---------+ + + | Performing | Address | City/State/Zipcode | Phone Number | | Organization | | | | + +---------+ + + | EXTERNAL LAB | | | | + +---------+ + + External Lab: CBC (04/29/2016 4:37 AM PST) + + + + + + | Component | Value | Ref Range | Performed | Pathologist | | | | | At | Signature | + + + + + + | WBC | 37.63 (HH)Comment: | 3.80 - 11.00 | EXTERNAL | | | | CALLED TO LAUREN Messer | K/uL | LAB | | | | RN/ICU AT 0523 BY WMREAD | | | | | | BACK RESULTS | | | | | | VERIFIEDTesting | | | | | | performed at [facility];[address] | | | | | | [address];[place] | | | | | | [address] | | | | + + + + + + | Non- | 4.18 (L)Comment: Testing | 4.20 - 5.70 | EXTERNAL | | | Red Blood | performed at [facility];[address] | M/uL | LAB | | | Cells | [address];[place] | | | | | Counted | [address] | | | | + + + + + + | Hemoglobin | 12.3 (L)Comment: Testing | 13.2 - 17.0 | EXTERNAL | | | | performed at [facility];[address] | g/dL | LAB | | | | [address];[place] | | | | | | [address] | | | | + + + + + + | Hematocrit, | 37.9 (L)Comment: Testing | 39.0 - 50.0 % | EXTERNAL | | | POC | performed at [facility];[address] | | LAB | | | | [address];[place] | | | | | | [address] | | | | + + + + + + | MCV | 90.8Comment: Testing | 80.0 - 100.0 fl | EXTERNAL | | | | performed at [facility];[address] | | LAB | | | | [address];[place] | | | | | | [address] | | | | + + + + + + | MCH | 29.5Comment: Testing | 27.0 - 34.0 pg | EXTERNAL | | | | performed at [facility];[address] | | LAB | | | | [address];[place] | | | | | | [address] | | | | + + + + + + | MCHC | 32.4Comment: Testing | 32.0 - 35.5 | EXTERNAL | | | | performed at [facility];[address] | g/dL | LAB | | | | [address];[place] | | | | | | [address] | | | | + + + + + + | RDW-CV | 53.8 (H)Comment: Testing | 37 - 53 fl | EXTERNAL | | | | performed at [facility];[address] | | LAB | | | | [address];[place] | | | | | | [address] | | | | + + + + + + | Platelet | 188Comment: Testing | 150 - 400 K/uL | EXTERNAL | | | Count | performed at [facility];[address] | | LAB | | | Plasma | [address];[place] | | | | | | [address] | | | | + + + + + + | MPV | 7.7Comment: Testing | fl | EXTERNAL | | | | performed at [facility];[address] | | LAB | | | | [address];[place] | | | | | | [address] | | | | + + + + + + | Differentia | MANUALComment: Testing | | EXTERNAL | | | l Type | performed at [facility];[address] | | LAB | | | | [address];[place] | | | | | | [address] | | | | + + + + + + | Segmented | 88Comment: Testing | % | EXTERNAL | | | Neutrophils | performed at [facility];[address] | | LAB | | | Manual | [address];[place] | | | | | | [address] | | | | + + + + + + | % Bands | 10Comment: Testing | % | EXTERNAL | | | | performed at [facility];[address] | | LAB | | | | [address];[place] | | | | | | [address] | | | | + + + + + + | Lymphocytes | 1Comment: Testing | % | EXTERNAL | | | Manual | performed at [facility];[address] | | LAB | | | | [address];[place] | | | | | | [address] | | | | + + + + + + | Monocytes | 1Comment: Testing | % | EXTERNAL | | | Manual | performed at [facility];[address] | | LAB | | | | [address];[place] | | | | | | [address] | | | | + + + + + + | Absolute | 33.11 (H)Comment: | 1.90 - 7.40 | EXTERNAL | | | Neutrophils | Testing performed at | K/uL | LAB | | | | [facility];[address];[place] [address] | | | | + + + + + + | Bands | 3.76 (H)Comment: Testing | 0.00 - 0.20 | EXTERNAL | | | Manual | performed at [facility];[address] | K/uL | LAB | | | | [address];[place] | | | | | | [address] | | | | + + + + + + | Absolute | 0.38 (L)Comment: Testing | 1.00 - 3.90 | EXTERNAL | | | Lymphocytes | performed at [facility];[address] | K/uL | LAB | | | | [address];[place] | | | | | | [address] | | | | + + + + + + | Absolute | 0.38Comment: Testing | 0.00 - 0.80 | EXTERNAL | | | Monocytes | performed at [facility];[address] | K/uL | LAB | | | | [address];[place] | | | | | | [address] | | | | + + + + + + | RBC | NORMAL PLT MORPHComment: | | EXTERNAL | | | Morphology | 1+ANISOTesting | | LAB | | | | performed at [facility];[address] | | | | | | [address];[place] | | | | | | [address] | | | | | | | [...] | + +---------+ + + POC Glucose (04/29/2016 4:16 AM PST) + + + + + + | Component | Value | Ref Range | Performed | Pathologist | | | | | At | Signature | + + + + + + | Glucose, | 184 (H)Comment: Testing | 65 - 99 mg/dL | EXTERNAL | | | Fingerstick | performed at [facility];[address] | | LAB | | | | [address];[place], [place] | | | | | | [address] | | | | + + + + + + + + | Specimen | + + | | + + + +---------+ + + | Performing | Address | City/State/Zipcode | Phone Number | | Organization | | | | + +---------+ + + | EXTERNAL LAB | | | | + +---------+ + + T3, Total and Free (04/29/2016 3:17 AM PST) + + + + + + | Component | Value | Ref Range | Performed | Pathologist | | | | | At | Signature | + + + + + + | T3, Free | 1.0 (L)Comment: Testing | 2.3 - 4.2 pg/mL | EXTERNAL | | | | performed at [facility], [address] | | LAB | | | | [address] | | | | | | [place] [address] | | | | + + + + + + | T3, Total | 40 (L)Comment: Testing | 80 - 200 ng/dL | EXTERNAL | | | | performed at [facility], [address] | | LAB | | | | [place] | | | | | | [place] [address] | | | | + + + + + + + + | Specimen | + + | | + + + +---------+ + + | Performing | Address | City/State/Zipcode | Phone Number | | Organization | | | | + +---------+ + + | EXTERNAL LAB | | | | + +---------+ + + External Lab: CBC (04/29/2016 3:17 AM PST) + + + + + + | Component | Value | Ref Range | Performed | Pathologist | | | | | At | Signature | + + + + + + | WBC | 40.72 ()Comment: | 3.80 - 11.00 | EXTERNAL | | | | RESULT READ BACK | K/uL | LAB | | | | BY:LUCA CARLTON ICU AT | | | | | | 04:26 ON | | | | | | 04/29/2016.AJGTesting | | | | | | performed at [facility], [address] | | [address], | | | | | | [place] [address] | | | | + + + + + + | Non- | 4.32Comment: Testing | 4.20 - 5.70 | EXTERNAL | | | Red Blood | performed at [facility], [address] | M/uL | LAB | | | Cells | [address], | | | | | Counted | [place] [address] | | | | + + + + + + | Hemoglobin | 12.9 (L)Comment: Testing | 13.2 - 17.0 | EXTERNAL | | | | performed at [facility], [address] | g/dL | LAB | | | | [address], | | | | | | [place] [address] | | | | + + + + + + | Hematocrit, | 40.3Comment: Testing | 39.0 - 50.0 % | EXTERNAL | | | POC | performed at [facility], [address] | | LAB | | | | [address], | | | | | | [place] [address] | | | | + + + + + + | MCV | 93.2Comment: Testing | 80.0 - 100.0 fl | EXTERNAL | | | | performed at [facility], [address] | | LAB | | | | [address], | | | | | | [place] [address] | | | | + + + + + + | MCH | 29.8Comment: Testing | 27.0 - 34.0 pg | EXTERNAL | | | | performed at [facility], [address] | | LAB | | | | [address], | | | | | | [place] [address] | | | | + + + + + + | MCHC | 32.0Comment: Testing | 32.0 - 35.5 | EXTERNAL | | | | performed at [facility], [address] | g/dL | LAB | | | | [address], | | | | | | [place] [address] | | | | + + + + + + | RDW-CV | 55.6 (H)Comment: Testing | 37 - 53 fl | EXTERNAL | | | | performed at [facility], [address] | | LAB | | | | [address], | | | | | | [place] [address] | | | | + + + + + + | Platelet | 182Comment: Testing | 150 - 400 K/uL | EXTERNAL | | | Count | performed at [facility], [address] | | LAB | | | Plasma | [address], | | | | | | [place] [address] | | | | + + + + + + | MPV | 8.0Comment: Testing | fl | EXTERNAL | | | | performed at [facility], [address] | | LAB | | | | [address], | | | | | | [place] [address] | | | | + + + + + + | Differentia | MANUALComment: Testing | | EXTERNAL | | | l Type | performed at [facility], [address] | | LAB | | | | [address], | | | | | | [place], [place] [address] | | | | + + + + + + | Segmented | 90Comment: Testing | % | EXTERNAL | | | Neutrophils | performed at [facility], [address] | | LAB | | | Manual | [address], | | | | | | [place], [place] [address] | | | | + + + + + + | % Bands | 6Comment: Testing | % | EXTERNAL | | | | performed at [facility], [address] | | LAB | | | | [address], | | | | | | [place] [address] | | | | + + + + + + | Lymphocytes | 2Comment: Testing | % | EXTERNAL | | | Manual | performed at [facility], [address] | | LAB | | | | [address], | | | | | | [place] [address] | | | | + + + + + + | Monocytes | 2Comment: Testing | % | EXTERNAL | | | Manual | performed at [facility], [address] | | LAB | | | | [address], | | | | | | [place] [address] | | | | + + + + + + | Absolute | 36.66 (H)Comment: | 1.90 - 7.40 | EXTERNAL | | | Neutrophils | Testing performed at | K/uL | LAB | | | | [facility], [address] | | | | | | [place] | | | | | | [address] | | | | + + + + + + | Bands | 2.44 (H)Comment: Testing | 0.00 - 0.20 | EXTERNAL | | | Manual | performed at [facility], [address] | K/uL | LAB | | | | [address], | | | | | | [place] [address] | | | | + + + + + + | Absolute | 0.81 (L)Comment: Testing | 1.00 - 3.90 | EXTERNAL | | | Lymphocytes | performed at [facility], [address] | K/uL | LAB | | | | [address], | | | | | | [place] [address] | | | | + + + + + + | Absolute | 0.81 (H)Comment: Testing | 0.00 - 0.80 | EXTERNAL | | | Monocytes | performed at [facility], [address] | K/uL | LAB | | | | [address], | | | | | | [place] [address] | | | | + + + + + + | RBC | 1+Comment: ANISONORMAL | | EXTERNAL | | | Morphology | PLT MORPHTesting | | LAB | | | | performed at [facility], [address] | | | | | | [address], | | | | | | [place] [address] | | | | | | | [...] | | + +---------+ + + TSH (04/29/2016 3:17 AM PST) + + + + + + | Component | Value | Ref Range | Performed | Pathologist | | | | | At | Signature | + + + + + + | TSH | 9.96 (H)Comment: Testing | 0.45 - 5.10 | EXTERNAL | | | | performed at [facility], [address] | uIU/mL | LAB | | | | [address], | | | | | | [place] [address] | | | | + + + + + + + + | Specimen | + + | Blood specimen | | (specimen) | + + + +---------+ + + | Performing | Address | City/State/Zipcode | Phone Number | | Organization | | | | + +---------+ + + | EXTERNAL LAB | | | | + +---------+ + + T4, Free (04/29/2016 3:17 AM PST) + + + + + + | Component | Value | Ref Range | Performed | Pathologist | | | | | At | Signature | + + + + + + | FREE T4 | 0.7Comment: Testing | 0.7 - 1.5 ng/dL | EXTERNAL | | | (REF) | performed at [facility], [address] | | LAB | | | | [address], | | | | | | [place] [address] | | | | + + + + + + + + | Specimen | + + | Blood specimen | | (specimen) | + + + +---------+ + + | Performing | Address | City/State/Zipcode | Phone Number | | Organization | | | | + +---------+ + + | EXTERNAL LAB | | | | + +---------+ + + Phosphorus (04/29/2016 3:17 AM PST) + + + + + + | Component | Value | Ref Range | Performed | Pathologist | | | | | At | Signature | + + + + + + | PHOSPHORUS | 5.6 (H)Comment: Testing | 2.3 - 4.8 mg/dL | EXTERNAL | | | | performed at [facility], [address] | | LAB | | | | [address], | | | | | | [place] [address] | | | | + + + + + + + + | Specimen | + + | Blood specimen | | (specimen) | + + + +---------+ + + | Performing | Address | City/State/Zipcode | Phone Number | | Organization | | | | + +---------+ + + | EXTERNAL LAB | | | | + +---------+ + + Magnesium (04/29/2016 3:17 AM PST) + + + + + + | Component | Value | Ref Range | Performed | Pathologist | | | | | At | Signature | + + + + + + | Magnesium | 2.3Comment: Testing | 1.7 - 2.4 mg/dL | EXTERNAL | | | | performed at [facility], [address] | | LAB | | | | [address], | | | | | | [place] [address] | | | | + + + + + + + + | Specimen | + + | Blood specimen | | (specimen) | + + + +---------+ + + | Performing | Address | City/State/Zipcode | Phone Number | | Organization | | | | + +---------+ + + | EXTERNAL LAB | | | | + +---------+ + + Hemoglobin A1C (04/29/2016 3:17 AM PST) + + + + + + | Component | Value | Ref Range | Performed | Pathologist | | | | | At | Signature | + + + + + + | Hemoglobin | 6.2 (H)Comment: The | 4.0 - 6.0 % | EXTERNAL | | | A1c | [place] [facility] | | LAB | | | | Association considers a | | | | | | hemoglobin A1c result of | | | | | | <7.0% to be the goal of | | | | | | diabetic therapy. | | | | | | When results are | | | | | | consistently >8.0%, the | | | | | | ADA suggests | | | | | [...] | | | | | performed at [facility], [address] | | | | | [address], | | | | | | [place] [address] | | | | + + + + + + | Glycohemogl | 131Comment: The ADA | mg/dL | EXTERNAL | [...] | | | | | performed at [facility], [address] | | | | | [address], | | | | | | [place] [address] | | | | + + + [...] + +---------+ + + Basic Metabolic Panel (04/29/2016 3:17 AM PST) + + + + + + | Component | Value | Ref Range | Performed | Pathologist | | | | | At | Signature | + + + + + + | Na | 139Comment: Testing | 135 - 145 | EXTERNAL | | | | performed at [facility], [address] | mmol/L | LAB | | | | [address], | | | | | | [place] [address] | | | | + + + + + + | K | 5.2 (H)Comment: SPECIMEN | 3.5 - 4.9 | EXTERNAL | | | | NOT HEMOLYZEDTesting | mmol/L | LAB | | | | performed at [facility], [address] | | | | | | [address], | | | | | | [place] [address] | | | | + + + + + + | Cl | 101Comment: Testing | 99 - 109 mmol/L | EXTERNAL | | | | performed at [facility], [address] | | LAB | | | | [address], | | | | | | [place] [address] | | | | + + + + + + | CO2 | 23Comment: Testing | 23 - 32 mmol/L | EXTERNAL | | | | performed at [facility], [address] | | LAB | | | | [address], | | | | | | [place] [address] | | | | + + + + + + | Anion Gap | 20Comment: Testing | 5 - 20 mmol/L | EXTERNAL | | | | performed at [facility], [address] | | LAB | | | | [address], | | | | | | [place] [address] | | | | + + + + + + | Glucose, | 194 (H)Comment: Testing | 65 - 99 mg/dL | EXTERNAL | | | Fasting | performed at [facility], [address] | | LAB | | | | [address], | | | | | | [place] [address] | | | | + + + + + + | BUN | 40 (H)Comment: Testing | 8 - 25 mg/dL | EXTERNAL | | | | performed at [facility], [address] | | LAB | | | | [address], | | | | | | [place] [address] | | | | + + + + + + | Creatinine | 7.5 (H)Comment: Testing | 0.70 - 1.30 | EXTERNAL | | | | performed at [facility], [address] | mg/dL | LAB | | | | [address], | | | | | | [place] [address] | | | | + + + + + + | BUN/Creatin | 5Comment: Testing | | EXTERNAL | | | ine Ratio | performed at [facility], [address] | | LAB | | | | [address], | | | | | | [place] [address] | | | | + + + + + + | Calcium | 7.8 (L)Comment: Testing | 8.5 - 10.5 | EXTERNAL | | | | performed at [facility], [address] | mg/dL | LAB | | | | [facility], | | | | | | [place] [address] | | | | + + + [...] [address] | | | | | | [address], | | | | | | [place] [address] | | | | + + + + + + + + | Specimen | + + | Blood specimen | | (specimen) | + + + +---------+ + + | Performing | Address | City/State/Zipcode | Phone Number | | Organization | | | | + +---------+ + + | EXTERNAL LAB | | | | + +---------+ + + POC Glucose (04/29/2016 12:13 AM PDT) + + + + + + | Component | Value | Ref Range | Performed | Pathologist | | | | | At | Signature | + + + + + + | Glucose, | 179 (H)Comment: Testing | 65 - 99 mg/dL | EXTERNAL | | | Fingerstick | performed at [facility];[address] | | LAB | | | | [address];[place] | | | | | | [address] | | | | + + + + + + + + | Specimen | + + | | + + + +---------+ + + | Performing | Address | City/State/Zipcode | Phone Number | | Organization | | | | + +---------+ + + | EXTERNAL LAB | | | | + +---------+ + + Sodium (04/28/2016 6:28 PM PDT) + + + + + + | Component | Value | Ref Range | Performed | Pathologist | | | | | At | Signature | + + + + + + | Na | 136Comment: Testing | 135 - 145 | EXTERNAL | | | | performed at [facility];[address] | mmol/L | LAB | | | | [address];[place], [place] | | | | | | [address] | | | | + + + + + + + + | Specimen | + + | Blood specimen | | (specimen) | + + + +---------+ + + | Performing | Address | City/State/Zipcode | Phone Number | | Organization | | | | + +---------+ + + | EXTERNAL LAB | | | | + +---------+ + + POC Glucose (04/28/2016 5:31 PM PDT) + + + + + + | Component | Value | Ref Range | Performed | Pathologist | | | | | At | Signature | + + + + + + | Glucose, | 129 (H)Comment: Testing | 65 - 99 mg/dL | EXTERNAL | | | Fingerstick | performed at [facility];[address] | | LAB | | | | [address];[place] | | | | | | [address] | | | | + + + + + + + + | Specimen | + + | | + + + +---------+ + + | Performing | Address | City/State/Zipcode | Phone Number | | Organization | | | | + +---------+ + + | EXTERNAL LAB | | | | + +---------+ + + POC Glucose (04/28/2016 2:03 PM PDT) + + + + + + | Component | Value | Ref Range | Performed | Pathologist | | | | | At | Signature | + + + + + + | Glucose, | 120 (H)Comment: Testing | 65 - 99 mg/dL | EXTERNAL | | | Fingerstick | performed at [facility];[address] | | LAB | | | | [address];[place], [place] | | | | | | [address] | | | | + + + + + + + + | Specimen | + + | | + + + +---------+ + + | Performing | Address | City/State/Zipcode | Phone Number | | Organization | | | | + +---------+ + + | EXTERNAL LAB | | | | + +---------+ + + Sodium (04/28/2016 1:49 PM PDT) + + + + + + | Component | Value | Ref Range | Performed | Pathologist | | | | | At | Signature | + + + + + + | Na | 136Comment: Testing | 135 - 145 | EXTERNAL | | | | performed at [facility];[address] | mmol/L | LAB | | | | [address];[place] | | | | | | [address] | | | | + + + + + + + + | Specimen | + + | Blood specimen | | (specimen) | + + + +---------+ + + | Performing | Address | City/State/Zipcode | Phone Number | | Organization | | | | + +---------+ + + | EXTERNAL LAB | | | | + +---------+ + + Lactic Acid (04/28/2016 1:49 PM PDT) + + + + + + | Component | Value | Ref Range | Performed | Pathologist | | | | | At | Signature | + + + + + + | Lactate | 1.0Comment: Testing | 0.4 - 2.0 | EXTERNAL | | | | performed at [facility];[address] | mmol/L | LAB | | | | [address] [facility];[place], [place] | | | | | | [address] | | | | + + + + + + + + | Specimen | + + | Blood specimen | | (specimen) | + + + +---------+ + + | Performing | Address | City/State/Zipcode | Phone Number | | Organization | | | | + +---------+ + + | EXTERNAL LAB | | | | + +---------+ + + Gram Stain, reflex Sputum Culture (04/28/2016 1:41 PM PDT) + + | Specimen | + + | | + + + + + | Narrative | Performed At | + + + | Specimen Description TRACHEAL ASPIRATE SPECIAL | EXTERNAL LAB | | REQUESTS S GRAM [facility] AT [facility] GRAM STAIN | | | GREATER THAN 10 WBCS/LPF | | | LESS THAN 10 SEC/LPF | | | 4+ | | | GRAM POSITIVE COCCI | | | CULTURE 2+ | | | STREPTOCOCCUS | | | PNEUMONIAEAbnormal | | | 1+ | | | NORMAL UPPER RESPIRATORY POWER Suscepibility for - STREPTOCOCCUS | | | PNEUMONIAE PENICILLIN OTHER SUSCEPTIBLESensitive | | | PENICILLIN (ORAL) SUSCEPTIBLESensitive | | | Levofloxacin SUSCEPTIBLESensitive Linezolid | | | SUSCEPTIBLESensitive Trimethoprim + | | | SulfamethoxazoleSUSCEPTIBLESensitive Vancomycin | | | SUSCEPTIBLESensitive Ceftriaxone CSF | | | SUSCEPTIBLESensitive Ceftriaxone | | | SUSCEPTIBLESensitive Cefotaxime CSF | | | SUSCEPTIBLESensitive Cefotaxime | | | SUSCEPTIBLESensitive Tetracycline | | | SUSCEPTIBLESensitive Clindamycin | | | SUSCEPTIBLESensitive Erythromycin RESISTANT | | | Resistant | | + + + + +---------+ + + | Performing | Address | City/State/Zipcode | Phone Number | | Organization | | | | + +---------+ + + | EXTERNAL LAB | | | | + +---------+ + + Culture, Blood (04/28/2016 1:41 PM PDT) + + | Specimen | + + | | + + + + + | Narrative | Performed At | + + + | Specimen Description BLOOD, LINE DRAW SPECIAL | EXTERNAL LAB | | REQUESTS DIALYSIS CATH CULTURE | | | NO GROWTH 6 DAYS | | + + + + +---------+ + + | Performing | Address | City/State/Zipcode | Phone Number | | Organization | | | | + +---------+ + + | EXTERNAL LAB | | | | + +---------+ + + Hepatitis B Surface Ag (04/28/2016 1:40 PM PDT) + + + + + [...] | | | | | | [place] | | | | | | [address] | | | | + + + + + + + + | Specimen | + + | Blood specimen | | (specimen) | + + + +---------+ + + | Performing | Address | City/State/Zipcode | Phone Number | | Organization | | | | + +---------+ + + | EXTERNAL LAB | | | | + +---------+ + + Ethanol (04/28/2016 1:40 PM PDT) + + + + + + | Component | Value | Ref Range | Performed | Pathologist | | | | | At | Signature | + + + + + + | Ethyl | <10Comment: Testing | mg/dL | EXTERNAL | | | Alcohol | performed at [facility];[address] | | LAB | | | | [address];[place] | | | | | | [address] | | | | + + + + + + + + | Specimen | + + | Blood specimen | | (specimen) | + + + +---------+ + + | Performing | Address | City/State/Zipcode | Phone Number | | Organization | | | | + +---------+ + + | EXTERNAL LAB | | | | + +---------+ + + Viral DFA Stain, Reflex to Viral Culture (04/28/2016 1:39 PM PDT) + + | Specimen | + + | | + + + + + | Narrative | Performed At | + + + | MICRO SPECIMEN SOURCE NASOPHARYNGEAL Testing | EXTERNAL LAB | | performed at [facility];[address] [place] [address];[place] [address] CORRECTED ON 04/30 | | | AT 1403: PREVIOUSLY REPORTED NO GROWTH VIRAL CULT DFA STAIN | | | ACCESSION NO. | | | [id number] SPECIMEN SOURCE | | | NASOPHARYNGEAL DFA | | | SPECIMEN CONTAINED TOO FEW CELLS FOR | | | EVALUATION BY DIRECT FLUORESCENT | | | ANTIBODY STAIN. RESULT | | | PRELIMINARY: NO VIRUS ISOLATED AT 7 | | | DAYS. | | | FINAL: NO VIRUS ISOLATED AT 14 DAYS. | | | Testing performed at [facility] [address] [facility] [address] | | | REPORT STATUS REPORT STATUS | | | FINAL 05/14/2016 Testing performed at [facility], [address] | | | [facility] [address] | | + + + + +---------+ + + | Performing | Address | City/State/Zipcode | Phone Number | | Organization | | | | + +---------+ + + | EXTERNAL LAB | | | | + +---------+ + + Influenza CHELO Lance (04/28/2016 1:39 PM PDT) + + | Specimen | + + | | + + + + + | Narrative | Performed At | + + + | INFLUENZA A NEGATIVE Testing | EXTERNAL LAB | | performed by [facility] Testing performed at [facility];[address];[place], [place] | | | [address] INFLUENZA B NEGATIVE | | | Testing performed by [facility] Testing performed at [facility];[address];[place] [address] | | + + + + +---------+ + + | Performing | Address | City/State/Zipcode | Phone Number | | Organization | | | | + +---------+ + + | EXTERNAL LAB | | | | + +---------+ + + MRSA NAAT (04/28/2016 12:41 PM PDT) + + | Specimen | + + | | + + + + + | Narrative | Performed At | + + + | SOURCE NARES(NOSE) | EXTERNAL LAB | | Testing performed at [facility];[address] [place] [address];[place] [address] MRSA PCR | | | NEGATIVE Testing performed at | | | [address];[place] [address] | | + + + + +---------+ + + | Performing | Address | City/State/Zipcode | Phone Number | | Organization | | | | + +---------+ + + | EXTERNAL LAB | | | | + +---------+ + + XR Chest 1 Vw (04/28/2016 11:53 AM PDT) + + | Specimen | + + | | + + + + + | Impressions | Performed At | + + + | 1. Interval advancement of a well-positioned endotracheal tube. | | | 2. Nasogastric tube, as above. 3. Bilateral lung opacities, | | | as above. Electronically signed by Ar Neal MD on | | | 04/28/2016 12:09 PM | | + + + + + + | Narrative | Performed At | + + + | CAROL ROMY XR CHEST 1 VIEW 04/28/2016 11:53 AM HISTORY: | | | Respiratory failure. Assess life support lines and tubes. | | | TECHNIQUE: AP chest radiograph 1150 hours COMPARISON: Chest | | | radiographs, most recent 04/28/2016. FINDINGS: The endotracheal | | | tube is been slightly advanced, currently with the tip 4 cm from the | | | sabine, previously 6 cm. A new nasogastric tube is noted, the tip in | | | the gastric fundus, with subsequent decrease in the amount of gas in | | | the stomach. Lung volumes are lower. Minimal opacities remains in | | | the right midlung field laterally, and left lower lung field, | | | potentially subsegmental atelectasis or early infiltrate. No | | | pneumothorax is seen. The cardiac and pulmonary vasculature are | | | normal. | | + + + + + | Procedure Note | + + | Néstor, Rad Conversion - 02/05/2019 5:14 PM PDT CAROL POTTERGAURAV CHEST 1 VIEW04/28/2016 11:53 | | AM HISTORY:Respiratory failure. Assess life support lines and tubes. TECHNIQUE:AP chest | | radiograph 1150 hours COMPARISON:Chest radiographs, most recent 04/28/2016. FINDINGS:The | | endotracheal tube is been slightly advanced, currently with the tip 4 cm from the | | sabine, previously 6 cm. A new nasogastric tube is noted, the tip in the gastric fundus, | | with subsequent decrease in the amount of gas in the stomach. Lung volumes are lower. | | Minimal opacities remains in the right midlung field laterally, and left lower lung | | field, potentially subsegmental atelectasis or early infiltrate. No pneumothorax is | | seen. The cardiac and pulmonary vasculature are normal. IMPRESSION: 1. Interval | | advancement of a well-positioned endotracheal tube. 2. Nasogastric tube, as above. 3. | | Bilateral lung opacities, as above. Electronically signed by Ar Neal MD on | | 04/28/2016 12:09 PM | | | |FINDINGS: | |The endotracheal tube is been slightly advanced, currently with the tip 4 cm from the shaw a, previously 6 cm. A new nasogastric tube is noted, the tip in the gastric fundus, with sub sequent decrease in the amount of gas | |in the stomach. Lung volumes are | |lower. Minimal opacities remains in the right midlung field laterally, and left lower lung field, potentially subsegmental atelectasis or early infiltrate. No pneumothorax is seen. Th e cardiac and pulmonary vasculature are normal. | | | |IMPRESSION: | |1. Interval advancement of a well-positioned endotracheal tube. | | | |2. Nasogastric tube, as above. | | | |3. Bilateral lung opacities, as above. | | | | | + + Culture, Blood, 2nd Specimen (04/28/2016 11:53 AM PDT) + + | Specimen | + + | Blood specimen | | (specimen) | + + + + + | Narrative | Performed At | + + + | Specimen Description BLOOD, PERIPHERAL DRAW | EXTERNAL LAB | | CULTURE NO GROWTH 6 DAYS | | + + + + +---------+ + + | Performing | Address | City/State/Zipcode | Phone Number | | Organization | | | | + +---------+ + + | EXTERNAL LAB | | | | + +---------+ + + documented in this encounter Visit Diagnoses + + | Diagnosis | + + | Acute respiratory failure with hypoxia (HCC) Acute respiratory failure | + + | Acute respiratory failure with hypoxia and hypercapnia (HCC) | + + documented in this encounter
--- OUTSIDE RECORDS SUMMARY | ~2020-03-11 | XMS | Encounter Summary ---
Demographics + + + | Address | [address] | | | [place] [address] | + + + | Home Phone [...] Team Providers + +------+ + | Care Catering Administrative Assistant Name | Role | Phone | [...] | SR | | | | | BOX [facility] | | | | | | [place], [place] | | | | | | [address] | | | | | | [phone] | | | +--------+ + + + [...]
--- OUTSIDE RECORDS SUMMARY | ~2020-03-11 | XMS | Encounter Summary ---
Demographics + + + | Address | [address] | | | [place] [address] | + + + | Home Phone [...] Team Providers + +------+ + | Care Production Manager Name | Role | Phone | + +------+ + | Andry Deng DO | PCP | | + +------+ + Encounter Details +--------+ + + + + | Date | Type | Department | Care Team | Description | +--------+ + + + + | 05/17/ | Orders Only | [facility] | Conversion | | | 2013 | | INFECTIOUS DISEASE | Transaction, | | | | | [address] | Provider Unknown | | | | | [place], [place] | | | | | | [address] | (Fax) | | | | | [phone] | | | +--------+ + + + [...]
--- OUTSIDE RECORDS SUMMARY | ~2020-03-11 | XMS | Encounter Summary ---
Demographics + + + | Address | [address] | | | [place] [address] | + + + | Home Phone [...] Team Providers + +------+ + | Care Systems Tester Name | Role | Phone | + +------+ + PCP | Unavailable | + +------+ + Encounter Details +--------+ + + + + | Date | Type | Department | Care Team | Description | +--------+ + + + + | 07/22/ | Hospital | [facility] | Vaishnavi Edward MD | MRSA infection; | | 2018 - | Encounter | [facility] | [address] | Complication of AV | | | | CARE [address]LO[address] | [place] [address] | dialysis fistula, | | 07/25/ | | [address] | [phone] | initial encounter; | | 2017 | | [place], [place] | | End stage renal | | | | [address] | | failure on dialysis | | | | [phone] | | ([facility]); Infection of | | | | | [...] 1513 Date of Service: 07/25/17917 Status: Addendum Foot Setter: Albino Altamirano MD (Physician) Related Notes: Original Note by Albino Altamirano MD (Physician) filed at 07/25/17 1507 [facility] Service: Hospitalist Discharge Summary Date [...] Green/Yellow Discharge Around Incision Site) Follow up: MD [address] [place] [address] Schedule an appointment as soon as possible for a visit in 1 week post hospital [place] [address] [place] [address] Medication List CHANGE how you take these [...] ESRD (end stage renal disease) on dialysis ([facility]) Commonly known as: RENVELA take 3 tablets [...] These medications were sent to [facility] [facility] - [place] - [address] [facility], [place] [address] carvedilol 3.125 MG tablet Discharge took 35 minutes, to include final examination, discussion of admission, and prepa ration of prescriptions, instructions for on-going care, follow-up and documentation of disc harge summary. Dictation and hem inspector or software, Pivot, used which may contain error for similar [...] 07/25/171209 Date of Service: 07/25/171209 Status: Signed Foot Setter: Chela Boyle RPH (Pharmacist) Vancomycin Monitoring Clinician [...] Nurse Filed: 07/25/17 1048 Date of Service: 07/25/171044 Status: Signed Foot Setter: Heather Zavaleta RN (Registered Nurse) Went over discharge instructions with pt and , pt said he understood what appointments to follow up with and that no changes were made to his medications so he didn't need to fill any prescriptions. IV was removed. Pt is ready for discharge, just waiting transportation t o show up.Heather Zavaleta RN Electronically signed by [facility], Provider at 02/03/2019 3:06 PM PDTConver quique Transaction, Provider Unknown - 07/25/2017 9:22 AM PST Case Management by Devaughn Mendoza RN at 07/25/17921 Author: Devaughn Mendoza RN Service: (none) Author Type: Registered Nurse Filed: 07/25/17 1147 Date of Service: 07/25/17921 Status: Addendum Foot Setter: Devaughn Mendoza RN (Registered Nurse) Related Notes: Original Note by Devaughn Mendoza RN (Registered Nurse) filed at 07/25/17 09 57 9:22 AM Called and left a message for Klaudia, community health nurse at [facility]. Letting her kno w of today's discharge. I will set up transportation with [employer]. 9:55 AM Spoke with Klaudia at [facility]. Updated her on discharge plan. No chages to medication ac cording to AVS. I called [place] [employer]. They will schedule a ride and herminia l me back. 11:46 AM Ride will be here at 3:00 PM OAkoum, Juana Smallwood MD - 07/25/2017 8:56 AM PSTFormatting of this note might be different from th e original. Progress Notes by Juana Kwok MD at 07/25/17855 Author: Juana Kwok MD Service: Nephrology Author Type: Physician Filed: 07/25/17 1104 Date of Service: 07/25/17855 Status: Signed Foot Setter: Juana Kwok MD (Physician) [facility] Service: Nephrology Progress Note Hospital Problem List: [...] fistula Admitted with: same. Recommendations: No acute SECURITY INVESTIGATOR indication Plan it for outpt MWF schedule [...] Nurse Filed: 07/24/17 1424 Date of Service: 07/24/171421 Status: Signed Foot Setter: Devaughn Mendoza RN (Registered Nurse) 2:22 PM Attended rounds with Dr. Altamirano. Enrique will need another 24-48 hours in the hospital. Plan is to return home with his to [place]. Will need assistance in getting transportati on. Albino Diamond MD - 07/24/2017 11:30 AM PST Progress Notes by Albino Altamirano MD at 07/24/17 1130 Author: Albino Altamirano MD Service: Hospitalist Author Type: Physician Filed: 07/24/17 1518 Date of Service: 07/24/170 Status: Signed Foot Setter: Albino Altamirano MD (Physician) [facility] Service: Hospitalist Progress Note Hospital [...] MRSA growth. Will continue vanco for now. Patie nt has history of non compliance so [...] Inpatient. Code Status: Full Code Dictation and hem inspector or software, Pivot, used which may contain error for similar [...] 07/24/17854 Date of Service: 07/24/17854 Status: Signed Foot Setter: Reba Roldan RPH (Pharmacist) Vancomycin Monitoring Day [...] 07/23/172023 Date of Service: 07/23/172023 Status: Signed Foot Setter: Ambika Hanson RPH (Pharmacist) HD patient so famotidine 20mg po changed to once daily onver quique Transaction, Provider Unknown - 07/23/2017 6:14 PM PST Progress Notes by Camilo Samson RN at 07/23/171813 Author: Camilo Samson RN Service: (none) Author Type: Registered Nurse Filed: 07/23/171813 Date of Service: 07/23/171813 Status: Signed Foot Setter: Camilo Samson RN (Registered Nurse) Pt received HD with 1L taken off. No acutre changes this shift. Camilo Samson RN lbino Altamirano MD - 07/23/2017 2:36 PM PST Progress Notes by Albino Altamirano MD at 07/23/17 1436 Author: Albino Altamirano MD Service: Hospitalist Author Type: Physician Filed: 07/23/172016 Date of Service: 07/23/17 1436 Status: Signed Foot Setter: Albino Altamirano MD (Physician) [facility] Service: Hospitalist Progress Note Hospital [...] Inpatient. Code Status: Full Code Dictation and hem inspector or software, Pivot, used which may contain error for similar [...] Date of Service: 07/23/17 1043 Status: Signed Foot Setter: Devaughn Mendoza RN (Registered Nurse) 10:44 AM Received a call from Klaudia([phone]), she is with the [facility]. She just want ed to make herself available if there is any discharge needs that she could help with. onver quique Carlisleaction, Provider Unknown - 07/23/2017 10:19 AM PST Case Management by Devaughn Mendoza RN at 07/23/17 1019 Author: Devaughn Mendoza RN Service: (none) Author Type: Registered Nurse Filed: 07/23/17 1022 Date of Service: 07/23/17 1019 Status: Signed Foot Setter: Devaughn Mendoza RN (Registered Nurse) 07/23/17 1017 Discharge Planning Evaluation Admitting Diagnosis AV fistula infection Readmission No Living Arrangements Spouse/significant other Support Systems Spouse/significant other Type of Residence Private residence Independent with ADL's Yes Independent with Mobility Yes Home Care Services No Caregiver after Discharge No Mental Status Oriented Prior functional status Independent Power of Flexographic Printing Machinist No Anticipated Discharge Plan Post Acute Care Needs None at this time Plan communicated to patient/family Yes Resources Financial concerns No Transportation issues Yes (No car, uses transportation service called "brokerage") Patient/Family concerns No Prescription Plan Yes Name of Pharmacy [facility] if after hours Previous home health equipment No Vascular access device No Ostomy/Drains/Appliances No Met with Leen & his Shyanne and discussed discharge planning, Pt is a 52 y.o., male from [place], [place]. He lives with his and he get dialysis three times a week(--) in [facility]. He does not use any other DME equipment. Patient's PCP is:Andry Deng MD Patient's insurance:[facility] Coverage concerns: no Medication coverage/concerns:no Rx Bedside Delivery: not needed Community resources utilized / needed: Uses a transportation service Assistance in transportation: Will need transportation assistance Identification of any specific education / training: no Barriers to Discharge / Alternative housing needed:no Anticipated DCP: Home, may need out patient IVAB. Devaughn Mendoza onver quique Transaction, Provider Unknown - 07/23/2017 8:56 AM PST Progress Notes by Shira Werner RN at 07/23/17855 Author: Shira Werner RN Service: Infectious Disease Author Type: Registered Nurse Filed: 07/23/17856 Date of Service: 07/23/17855 Status: Signed Foot Setter: Shira Werner RN (Registered Nurse) Infection Prevention Note: Pt with a nasal PCR positive for MRSA. Contact Isolation precautions required for this hosp italization . Thank you! Shira Werner RN, BSN, [facility] Infection Control Coord [phone] onver quique Transaction, Provider Unknown - 07/22/2017 9:29 PM PST Pharmacy Note by Chela Boyle RPH at 07/22/172128 Author: Chela Boyle RPH Service: Pharmacy Author Type: Pharmacist Filed: 07/22/172128 Date of Service: 07/22/172128 Status: Signed Foot Setter: Chela Boyle RPH (Pharmacist) Initiation of Vancomycin [...] 07/22/172106 Date of Service: 07/22/172106 Status: Signed Foot Setter: Chela Boyle RPH (Pharmacist) Renal Dosing Monitoring: Enrique Potter 52 [...] 07/22/172057 Date of Service: 07/22/172032 Status: Addendum Foot Setter: Vaishnavi Edward MD (Physician) Related Notes: Original Note by Vaishnavi Edward MD (Physician) filed at 07/22/172056 [facility] Service: Hospitalist Admission History & Physical Pt: Enrique Potter AGE/SEX: 52 y.o. male Date of Admission: [...] cannulation of his AVF, the dialy sis microbiology quality control technician noted a small amount of pus [...] exacerbation (HCC) 10/27/2013 Chronic systolic heart failure ([facility]) 09/10/2016 Diabetes mellitus type I ([facility]) Dialysis patient ([facility]) DVT (deep venous thrombosis) ([facility]) x3 GI bleed 04/30/2012 from coumadin Gout Hyperkalemia 11/09/2013 Hyperlipidemia Hyperphosphatemia 05/24/2012 Hypertension Hyponatremia 09/08/2016 Knee pain, right 07/06/2012 MSSA (methicillin susceptible Staphylococcus aureus) infection 04/11/2012 Neuromuscular disorder ([facility]) neuropathy 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[facility]) 05/01/2012 Rash and nonspecific skin eruption 04/03/2012 SOB (shortness of breath) 10/27/2013 Thyroid disease Walker as ambulation aid Past Surgical History Procedure Laterality Date AV FISTULA PLACEMENT Right 02/09/2014 Procedure: AV FISTULA; Surgeon: Oskar Meyer MD; Location: [facility] MAIN OR; Service: Vascula r; Laterality: Right; AV FISTULA PLACEMENT Left 05/06/2012 Procedure: AV FISTULA; Surgeon: Oskar Meyer MD; Location: [facility] MAIN OR; Service: Vascula r; Laterality: Left; Left arm possible right AV FISTULA REPAIR Left 07/11/2012 Procedure: AV FISTULA - GRAFT REPAIR/REVISION; Surgeon: Oskar Meyer MD; Location: [facility] IN OR; Service: Vascular; Laterality: Left; Superficialization of brachiobasilic fistula and right IJ perm cath insertion CATHETER REMOVAL Right 07/07/2012 Procedure: DIALYSIS CATHETER - REMOVAL; Surgeon: Oskar Meyer MD; Location: [facility] BEDSIDE P ROCEDURE; Service: General; Laterality: Right; perm cath COLONOSCOPY WITH EGD N/A 05/01/2012 Procedure: COLONOSCOPY W/ EGD; Surgeon: John Singleton MD; Location: [facility] ENDOSCOPY; Ser vice: Gastroenterology; Laterality: N/A; DIALYSIS FISTULA CREATION Left 07/11/2012 Procedure: DIALYSIS CATHETER - INSERTION; Surgeon: Oskar Meyer MD; Location: [facility] MAIN OR ; Service: Vascular; Laterality: Left; removed dialysis catheter from left neck and place d new on in left chest, attempted in right neck but unable to place DIALYSIS FISTULA CREATION Left 07/07/2012 Procedure: DIALYSIS CATHETER - INSERTION; Surgeon: Oskar Meyer MD; Location: [facility] BEDSIDE PROCEDURE; Service: General; Laterality: Left; temporary dialysis catheter KNEE ARTHROSCOPY Right 07/07/2012 Procedure: KNEE - ARTHROSCOPY; Surgeon: Favio Raza MD; Location: [facility] MAIN OR; rvice: Orthopedics; Laterality: Right; After 1530 SUPERFICIALIZATION OF AV FISTULA Right 03/30/2014 Procedure: AV FISTULA - SUPERFICIALIZATION; Surgeon: Oskar Meyer MD; Location: [facility] MAIN OR; Service: Vascular; Laterality: Right; [...] PST Procedures by Juana Kwok MD at 07/24/17 1618 Author: Juana Kwok MD Service: Nephrology Author Type: Physician Filed: 07/25/17 0021 Date of Service: 07/24/171617 Status: Signed Foot Setter: Juana Kwok MD (Physician) Procedure Orders: 1. Hemodialysis [[id number]] ordered by Juana Kwok MD at 07/24/172049 [...] treatment is planned for Saturday as outpt. JAUNA KWOK MD koum, Juana romo MD - 07/23/2017 1:56 PM PST Procedures by Juana Kwok MD at 07/23/17 5897 Author: Juana Kwok MD Service: Nephrology Author Type: Physician Filed: 07/28/17 5480 Date of Service: 07/23/17 1356 Status: Signed Foot Setter: Juana Kwok MD (Physician) Procedure Orders: 1. Hemodialysis [[id number]] ordered by Juana Kwok MD at 07/23/17 1653 The patient is seen & examined during [...] Consults by Oskar Meyer MD at 07/23/17 9151 Author: Oskar Meyer MD Service: Vascular Surgery Author Type: Physician Filed: 07/23/17 9544 Date of Service: 07/23/17 0434 Status: Signed Foot Setter: Oskar Meyer MD (Physician) Consult Orders: 1. Inpatient consult to Vascular Surgery [[id number]] ordered by Albino Altamirano MD at 5684 Subjective: Patient is a 52 y.o. male with PMH significant for DM, substance abuse, CHF, and ESRD curre ntly dialyzing via right upper extremity brachiobasilic fistula [facility] . He recently had [...] inhaler any more, no symptoms AV fistula ([facility]) lt arm 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 Chronic obstructive asthma with exacerbation ([facility]) 10/27/2013 Chronic systolic heart failure ([facility]) 09/10/2016 Diabetes mellitus type I ([facility]) Dialysis patient ([facility]) DVT (deep venous thrombosis) ([facility]) x3 GI bleed 04/30/2012 from coumadin Gout Hyperkalemia 11/09/2013 Hyperlipidemia Hyperphosphatemia 05/24/2012 Hypertension Hyponatremia 09/08/2016 Knee pain, right 07/06/2012 MSSA (methicillin susceptible Staphylococcus aureus) infection 04/11/2012 Neuromuscular disorder ([facility]) neuropathy 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[facility]) 05/01/2012 Rash and nonspecific skin eruption 04/03/2012 SOB (shortness of breath) 10/27/2013 Thyroid disease Walker as ambulation aid Past Surgical History Procedure Laterality Date AV FISTULA PLACEMENT Right 02/09/2014 Procedure: AV FISTULA; Surgeon: Oskar Meyer MD; Location: [facility] MAIN OR; Service: Vascula r; Laterality: Right; AV FISTULA PLACEMENT Left 05/06/2012 Procedure: AV FISTULA; Surgeon: Oskar Meyer MD; Location: [facility] MAIN OR; Service: Vascula r; Laterality: Left; Left arm possible right AV FISTULA REPAIR Left 07/11/2012 Procedure: AV FISTULA - GRAFT REPAIR/REVISION; Surgeon: Oskar Meyer MD; Location: [facility] IN OR; Service: Vascular; Laterality: Left; Superficialization of brachiobasilic fistula and right IJ perm cath insertion CATHETER REMOVAL Right 07/07/2012 Procedure: DIALYSIS CATHETER - REMOVAL; Surgeon: Oskar Meyer MD; Location: [facility] BEDSIDE P ROCEDURE; Service: General; Laterality: Right; perm cath COLONOSCOPY WITH EGD N/A 05/01/2012 Procedure: COLONOSCOPY W/ EGD; Surgeon: John Singleton MD; Location: [facility] ENDOSCOPY; Ser vice: Gastroenterology; Laterality: N/A; DIALYSIS FISTULA CREATION Left 07/11/2012 Procedure: DIALYSIS CATHETER - INSERTION; Surgeon: Oskar Meyer MD; Location: [facility] MAIN OR ; Service: Vascular; Laterality: Left; removed dialysis catheter from left neck and place d new on in left chest, attempted in right neck but unable to place DIALYSIS FISTULA CREATION Left 07/07/2012 Procedure: DIALYSIS CATHETER - INSERTION; Surgeon: Oskar Meyer MD; Location: [facility] BEDSIDE PROCEDURE; Service: General; Laterality: Left; temporary dialysis catheter KNEE ARTHROSCOPY Right 07/07/2012 Procedure: KNEE - ARTHROSCOPY; Surgeon: Favio Raza MD; Location: [facility] MAIN OR; Se rvice: Orthopedics; Laterality: Right; After 1530 SUPERFICIALIZATION OF AV FISTULA Right 03/30/2014 Procedure: AV FISTULA - SUPERFICIALIZATION; Surgeon: Oskar Meyer MD; Location: [facility] MA[facility] OR; Service: Vascular; Laterality: Right; [...] Assessment and plan: 52 yo male with [place] fistula of right upper extremity with recent [...] PST Consults by Juana Kwok MD at 07/22/171804 Author: Juana Kwok MD Service: Nephrology Author Type: Physician Filed: 07/28/17 1435 Date of Service: 07/22/171804 Status: Signed Foot Setter: Juana Kwok MD (Physician) Hospital Problem List: Principal Problem: 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HCC) Active Problems: Metabolic acidosis Hypothyroidism Diabetes mellitus with ESRD (end-stage renal disease) HTN (hypertension) ESRD (end stage renal disease) on dialysis Hyponatremia I was asked by the ED team to see Mr. Potter in consult today. As the admitting/consulting tea m is familiar with his case, I will [...] past Saturday at the dialysis ctr in [place]: when the A V fistula was prepared [...] Pt was called to come in to e ED. History & ROS obtained from [...] FUNCTION: No RKF There is no acute SECURITY INVESTIGATOR indication No IVF need Strict I/O & [...] presenting sxs and the interaction of beau watts with his ESRD & dialysis & caring [...] 07/22/171743 Date of Service: 07/22/171743 Status: Signed Foot Setter: Abbie Townsend RN (Registered Nurse) Lab called [...] 07/22/171658 Date of Service: 07/22/171656 Status: Signed Foot Setter: Abbie Townsend RN (Registered Nurse) Makes some urine in morning only. Not able to provide urine specimen at this time. Abbie Townsend RN 07/22/171658 onver quique Transaction, Provider Unknown - 07/22/2017 4:53 PM PST ED Notes by Abbie Townsend RN at 07/22/171652 Author: Abbie Townsend RN Service: (none) Author Type: Registered Nurse Filed: 07/22/171655 Date of Service: 07/22/171652 Status: Signed Foot Setter: Abbie Townsend RN (Registered Nurse) States no noted drainage over the weekend denies fever. Abbie Townsend RN 07/22/171655 onver quique Transaction, Provider Unknown - 07/22/2017 4:52 PM PST ED Notes by Abbie Townsend RN at 07/22/171651 Author: Abbie Townsend RN Service: (none) Author Type: Registered Nurse Filed: 07/22/171652 Date of Service: 07/22/171651 Status: Signed Foot Setter: Abbie Townsend RN (Registered Nurse) Last dialysis 07/17. usually goes mon sat and fri at [facility]. Abbie Townsend RN 07/22/171652 Umang Dumont PA-C - 07/22/2017 4:04 PM PSTFormatting of this note might be different from the orig inal. ED Provider Notes by Umang Lentz PA-C at 07/22/17 1604 Author: Umang Lentz PA-C Service: Emergency Department Author Type: Physician Straight Line Edger - Certified Filed: 07/22/172119 Date of Service: 07/22/171603 Status: Attested Foot Setter: Umang Lentz PA-C (Physician Straight Line Edger - Certified) Cosigner: Onelia Dawson at 07/22/17 2663 Attestation signed by Huan Martínez DO at 07/22/17 6638 I have discussed the treatment and care plan with the midlevel and I agree with the treatme nt and patient management plan as discussed. Procedures [facility] [place] History of Present Illness Patient Identification Enrique Potter is a 52 y.o. male. Patient information was obtained from patient. History/Exam limitations: none. Patient presented to the Emergency Department by: Car Chief Complaint Chief Complaint Patient presents with Skin Complaint Pt states "my fistula is leaking pus." Referral Sarah musical string maker. The patient complains of right arm fistula [...] was seen at dialysis appointment, they sent hi m to the ED due to pus coming from his fistula, dialysis not completed today. Past Medical History Diagnosis Date Abdominal pain, right upper quadrant 04/13/2012 Amphetamine and other psychostimulant dependence, continuous 04/02/2012 Anemia Anemia due to blood loss 04/30/2012 Asthma pt not using inhaler any more, no symptoms AV fistula (HCC) lt arm 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 Chronic obstructive asthma with exacerbation ([facility]) 10/27/2013 Chronic systolic heart failure ([facility]) 09/10/2016 Diabetes mellitus type I (HCC) Dialysis patient ([facility]) DVT (deep venous thrombosis) ([facility]) x3 GI bleed 04/30/2012 from coumadin Gout [...] AV FISTULA; Surgeon: Oskar Meyer MD; Location: [facility] MAIN OR; Service: Vascula r; Laterality: Right; AV FISTULA PLACEMENT Left 05/06/2012 Procedure: AV FISTULA; Surgeon: Oskar Meyer MD; Location: [facility] MAIN OR; Service: Vascula r; Laterality: Left; Left arm possible right AV FISTULA REPAIR Left 07/11/2012 Procedure: AV FISTULA - GRAFT REPAIR/REVISION; Surgeon: Oskar Meyer MD; Location: [facility] IN OR; Service: Vascular; Laterality: Left; Superficialization of brachiobasilic fistula and right IJ perm cath insertion CATHETER REMOVAL Right 07/07/2012 Procedure: DIALYSIS CATHETER - REMOVAL; Surgeon: Oskar Meyer MD; Location: [facility] BEDSIDE P ROCEDURE; Service: General; Laterality: Right; perm cath COLONOSCOPY WITH EGD N/A 05/01/2012 Procedure: COLONOSCOPY W/ EGD; Surgeon: John Singleton MD; Location: [facility] ENDOSCOPY; Ser vice: Gastroenterology; Laterality: N/A; DIALYSIS FISTULA CREATION Left 07/11/2012 Procedure: DIALYSIS CATHETER - INSERTION; Surgeon: Oskar Meyer MD; Location: [facility] MAIN OR ; Service: Vascular; Laterality: Left; removed dialysis catheter from left neck and place d new on in left chest, attempted in right neck but unable to place DIALYSIS FISTULA CREATION Left 07/07/2012 Procedure: DIALYSIS CATHETER - INSERTION; Surgeon: Oskar Meyer MD; Location: [facility] BEDSIDE PROCEDURE; Service: General; Laterality: Left; temporary dialysis catheter KNEE ARTHROSCOPY Right 07/07/2012 Procedure: KNEE - ARTHROSCOPY; Surgeon: Favio Raza MD; Location: [facility] MAIN OR; rvice: Orthopedics; Laterality: Right; After 1530 SUPERFICIALIZATION OF AV FISTULA Right 03/30/2014 Procedure: AV FISTULA - SUPERFICIALIZATION; Surgeon: Oskar Meyer MD; Location: [facility] MA[facility] OR; Service: Vascular; Laterality: Right; [...] KIDS. CURRENTLY UNEMPLOYED, BEFOR E WORKED AT [employer] IN [place]. Quit METHAMPHETAMINES PER PATIENT after t he [...] crp, es r, lactic acid, cbc, cmp. 151: Metabolic derangement; hyponatremia, hypochloremia, acute kidney failure. [...] Component Value Ref Range Date/Time C-Reactive Protein [[id number]] (Abnormal) Collected: 07/22/17 1440 Order Status: Completed Specimen: Blood Updated: 07/22/17 1759 CRP 1.3 (H) <0.5 mg/dL Sedimentation Rate (ESR) [[id number]] Collected: 07/22/17 1440 Order Status: Completed Specimen: Blood Updated: 07/22/17 1745 ESR 13 0 - 20 mm/Hr Blood Culture Set 1 [[id number]] Collected: 07/22/17 1505 Order Status: Sent Specimen: Blood from Blood, peripheral draw Updated: 07/22/17 1658 Lactic acid [[id number]] Collected: 07/22/171429 Order Status: Completed Specimen: Blood Updated: 07/22/17 1512 LACTIC ACID 1.0 0.4 - 2.0 mmol/L Comprehensive metabolic panel [[id number]] (Abnormal) Collected: 07/22/171429 Order Status: Completed Specimen: Blood Updated: 07/22/17 [...] 5 (L) >60 mL/min/1.73m2 CBC with differential [[id number]] (Abnormal) Collected: 07/22/171429 Order Status: Completed Specimen: Blood Updated: 07/22/17 [...] - 0.10 K/uL Blood Culture Set 2 [[id number]] Order Status: Sent Specimen: Blood from Blood Radiology and EKG Evaluation Imaging Results None Diagnosis & Disposition ED Diagnoses Final diagnoses MRSA infection Complication of AV dialysis fistula, initial encounter Disposition: ED Disposition ED Disposition Condition Comment Admit/Observation Bed request special needs: Dialysis Diagnosis?: MRSA infection near fistula Umang Lentz PA-C 07/22/172119 Huan Martínez DO 07/22/17 2317 onversion Transaction, Provider Unknown - 07/22/2017 2:56 PM PSTFormatting of this note might be different from t he original. ED Notes by Eri Ma RN at 07/22/17 6948 Author: Eri Ma RN Service: (none) Author Type: Registered Nurse Filed: 07/22/17 1456 Date of Service: 07/22/17 1456 Status: Signed Foot Setter: Eri Ma RN (Registered Nurse) HARDIK Vicente obtaining first blood culture. Pt will still need second blood culture. Pt and pt updated on intake plan of care and returned to waiting room. Eri Ma RN 07/22/17 1570 onver quique Transaction, Provider Unknown - 07/22/2017 2:39 PM PST ED Notes by Eri Ma RN at 07/22/17 2479 Author: Eri Ma RN Service: (none) Author Type: Registered Nurse Filed: 07/22/17 1440 Date of Service: 07/22/17 1439 Status: Signed Foot Setter: Eri Ma RN (Registered Nurse) Pt updated on intake plan of care. Lab called to obtain both sets of blood cultures. Eri Ma RN 07/22/17 1440 Yosef Cruz PA-C - 07/22/2017 2:26 PM PSTFormatting of this note might be different from the o riginal. ED Provider Notes by Yosef Smith PA-C at 07/22/17 1426 Author: Yosef Smith PA-C Service: Emergency Department Author Type: Physician Assista nt Filed: 07/22/17 1428 Date of Service: 07/22/171425 Status: Signed Foot Setter: Yosef Smith PA-C (Physician Straight Line Edger) Cosigner: Gareth Purcell DO at 07/22/17 1733 Procedures Chief Complaint Patient presents with Skin Complaint Pt states "my fistula is leaking pus." Referral Sarah musical string maker. --The patient relates complaints of-Right arm fistula- [...] 04/13/2012 Amphetamine and other psychostimulant dependence, continuous (HCC) 04/02/2012 Anemia Anemia due to blood loss 04/30/2012 Asthma pt not using inhaler any more, no symptoms AV fistula (HCC) lt arm 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 Chronic obstructive asthma with exacerbation (HCC) 10/27/2013 Chronic systolic heart failure ([facility]) 09/10/2016 Diabetes mellitus type I (HCC) Dialysis patient ([facility]) DVT (deep venous thrombosis) ([facility]) x3 GI bleed 04/30/2012 from coumadin Gout Hyperkalemia 11/09/2013 Hyperlipidemia Hyperphosphatemia 05/24/2012 Hypertension Hyponatremia 09/08/2016 Knee pain, right 07/06/2012 MSSA (methicillin susceptible Staphylococcus aureus) infection 04/11/2012 Neuromuscular disorder ([facility]) neuropathy 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[facility]) 05/01/2012 Rash and nonspecific skin eruption 04/03/2012 SOB (shortness of breath) 10/27/2013 Thyroid disease Walker as ambulation aid Yosef Smith PA-C 07/22/17 1428 documented in this encounter Miscellaneous Notes Plan of Care - Conversion Transaction, Provider Unknown - 07/24/2017 11:50 PM PST Plan of Care by Carmina Lepe RN at 07/24/172349 Author: Carmina Lepe RN Service: (none) Author Type: Registered Nurse Filed: 07/24/172349 Date of Service: 07/24/172349 Status: Signed Foot Setter: Carmina Lepe RN (Registered Nurse) Problem: Pain [...] Unknown - 07/24/2017 6:47 PM PSTFormatting of shannon s note might be different from the original. Plan of Care by Heather Zavaleta RN at 07/24/171846 Author: Heather Zavaleta RN Service: (none) Author Type: Registered Nurse Filed: 07/24/171846 Date of Service: 07/24/171846 Status: Signed Foot Setter: Heather Zavaleta RN (Registered Nurse) Problem: Pain [...] Unknown - 07/23/2017 11:32 PM PSTFormatting of shannon s note might be different from the original. Plan of Care by Madelyn Dimas RN at 07/23/172331 Author: Madelyn Dimas RN Service: (none) Author Type: Registered Nurse Filed: 07/24/17 0415 Date of Service: 07/23/172331 Status: Addendum Foot Setter: Madelyn Dimas RN (Registered Nurse) Related Notes: [...] this evening, no nightly insulin coverage needed. Electronically signed by [facility], Provider at 02/03/2019 3:11 PM PDTPlan o f Care - Conversion Transaction, Provider Unknown - 07/23/2017 10:59 AM PSTFormatting of shannon s note might be different from the original. Plan of Care by Camilo Samson RN at 07/23/171058 Author: Camilo Samson RN Service: (none) Author Type: Registered Nurse Filed: 07/23/171058 Date of Service: 07/23/171058 Status: Signed Foot Setter: Camilo Samson RN (Registered Nurse) Problem: Discharge Barriers Goal: Patient's discharge needs are met Collaborate with interdisciplinary team and initiate plans and interventions as needed. Outcome: Progressing Receiving dialysis and abx today with dialysis in avf. Camilo Samson RN lan o f Care - Conversion Transaction, Provider Unknown - 07/22/2017 10:59 PM PSTFormatting of shannon s note might be different from the original. Plan of Care by Madelyn Dimas RN at 07/22/17 637 Author: Madelyn Dimas RN Service: (none) Author Type: Registered Nurse Filed: 07/23/17 0435 Date of Service: 07/22/17 257 Status: Addendum Foot Setter: Madelyn Dimas RN (Registered Nurse) Related Notes: [...] | | | Fingerstick | performed at [facility];[address] | | LAB | | | | [address];[place], [place] | | | | | | [address] | | | | + + + [...] | | | Basophils | performed at [facility], [address] | K/uL | LAB | | | | [address], | | | | | | [place] [address] | | | | + + + [...] | | | | | | at [facility], [address] | | | | | | [address]anna [address], | | | | | | [place] [address] | | | | + + + [...] | | | Fingerstick | performed at [facility];[address] | | LAB | | | | [address];[place] | | | | | | [address] | | | | + + + [...] - 1.030 | EXTERNAL | | | [place], | | | LAB | | | [...] | | | CRYSTAL | performed at [facility];[address] | | LAB | | | | [address];[place] | | | | | | [address] | | | | + + + [...] | | | Fingerstick | performed at [facility];[address] | | LAB | | | | [address];[place], [place] | | | | | | [address] | | | | + + + [...] | | | Fingerstick | performed at [facility];[address] | | LAB | | | | [address];[place] | | | | | | [address] | | | | + + + [...] | | | Fingerstick | performed at [facility];[address] | | LAB | | | | [address];[place] | | | | | | [address] | | | | + + + [...] | | | Fingerstick | performed at [facility];[address] | | LAB | | | | [address];[place], [place] | | | | | | [address] | | | | + + + [...] | | | Basophils | performed at [facility], [address] | K/u[address] | LAB | | | | [address], | | | | | | [place] [address] | | | | + + [...] | | | | | [place] [address] | | | | + + + [...] | | | | | | at [facility], [address] | | | | | | [address]anna [address], | | | | | | [place] [address] | | | | + + + [...] | | | Fingerstick | performed at [facility];[address] | | LAB | | | | [address];[place], [place] | | | | | | [address] | | | | + + + [...] | | | Fingerstick | performed at [facility] | | LAB | | | | [place] | | | | | | [address] | | | | + + + [...] at | | | | | | [facility], [address] [facility] | | | | | | [place] | | | | | | [address] [...] | | | Fingerstick | performed at [facility];[address] | | LAB | | | | [address];[place], [place] | | | | | | [address] | | | | + + + + + + + + | Specimen | + + | | + + + +---------+ + + | Performing | Address | City/State/Zipcode | Phone Number | | Organization | | | | + +---------+ + + | EXTERNAL LAB | | | | + +---------+ + + External Lab: [facility] (07/23/2017 5:01 AM PST) + + + [...] | | | Basophils | performed at [facility], [address] | K/uL | LAB | | | | [address], | | | | | | [place] [address] | | | | + + + [...] EXTERNAL | | | | performed at [facility], [address] | | LAB | | | | [address] [address], | | | | | | [place] [address] | | | | + + + [...] | | | | | | TRIP C @ 7RP 6:57 07/23/17 DH | | | [...] | | | | | | at [facility], [address] | | | | | | [facility], | | | | | | [place] [address] | | | | + + + [...] | | | Fingerstick | performed at [facility];[address] | | LAB | | | | [address];[place], [place] | | | | | | [address] | | | | + + + [...] | | | PCRAbnormal Testing performed at [facility];[address];[place] [address] | | + + + + +---------+ [...] EXTERNAL | | | | performed at [facility];[address] | | LAB | | | | [address];[place] | | | | | | [address] | | | | + + + [...] EXTERNAL | | | | performed at [facility];[address] | | LAB | | | | [place] | | | | | | [address] | | | | + + + [...] | | | Basophils | performed at [facility];[address] | K/uL | LAB | | | | [place] | | | | | | [address] | | | | + + [...] EXTERNAL | | | | performed at [facility];[address] | mmol/L | LAB | | | | [place] | | | | | | [address] | | | | + + + [...] | | | | | | at [facility];[address] [place] [address] | | | | | | Bl;[place] [address] | | | | + + + [...]
--- OUTSIDE RECORDS SUMMARY | ~2020-03-11 | XMS | Encounter Summary ---
Demographics + + + | Address | [address] | | | [place] [address] | + + + | Home Phone | | + + + | Preferred Language | Unknown | + + + | Marital Status | Unknown | + + + | Sikh Affiliation | 1076 | + + + | Race | or | + + + | Ethnic Group | Not or | + + + Author + + + | Author | [facility] | | | and [place] | + + + | Organization | [facility] | | [...] Providers + +------+ + | Care Maintenance Mechanic Name | Role | Phone | + +------+ + PCP | Unavailable | + +------+ + Encounter Details +--------+ + + + + | Date | Type | Department | Care Team | Description | +--------+ + + + + | 08/07/ | Hospital | [facility] | Conversion | ESRD (end stage | | 2013 | Encounter | CENTER CV INTRA OP | Transaction, | renal disease) (HCC) | | | | [address] | Provider Unknown | | | | | [place], [place] | [phone] | | | | | [address] | | | | | | [phone] | Juan Timmons MD | | | | | | [address] | | | | | | [address] [place], [place] | | | | | | [address] | | | | | | | [...] Progress Notes by Malika Norris RN at 08/07/121350 Author: Malika Norris RN Service: (none) Author Type: Registered Nurse Filed: 08/07/121351 Date of Service: 08/07/121350 Status: Signed Coreroom Foundry Laborer: Malika Norris RN (Registered Nurse) Pt. Vss, tolerated procedure well, all d/c teachings and instructions given to pt. And spou se, all questions answered, understanding stated, no further concerns at the moment. Pt. D/c via wheelchair with spouse. docume nted in this encounter Procedure Notes Matteo Pruitt NP - 08/07/2012 1:35 PM PST Procedures by DARRELL Lopez at 08/07/12 1938 Author: DARRELL Lopez Service: Interventional Radiology Author Type: Advanced R egistered Nurse Practitioner Filed: 08/07/121 Date of Service: 08/07/121334 Status: Signed Coreroom Foundry Laborer: DARRELL Lopez (Advanced Registered Nurse Practitioner) Pre-procedure Diagnoses: 1. ESRD on dialysis (HCC) [585.6] Post-procedure Diagnoses: 1. ESRD on dialysis (HCC) [585.6] Procedures: 1. IR REMOVAL TUNNELED CATHETER [[id number] (Custom)] [facility] Service: Interventional Radiology Tunneled Dialysis Catheter Removal Pre-operative Diagnosis: ESRD requiring dialysis Post-operative Diagnosis: Same Procedure(s): Removal of left upper chest dual lumen tunneled dialysis catheter under loca l anesthesia Provider: DARRELL LOPEZ Anesthesia: Local anesthesia Estimated Blood Loss: Minimal Other: Not applicable Indications: Patient with functioning left upper arm AV fistula. No longer utilizing tunn eled catheter as a functioning access, needs removal. Complications: None Condition: Stable See dictated procedural report for full details. DARRELL LOPEZ 08/07/2012 1:36 PM documented in th is encounter Plan of [...] this patient in | | | the Information Systems Security Officer holding room. I had a discussion with [...] met this patient | | in the Information Systems Security Officer holding room. I had a discussion with [...]
--- OUTSIDE RECORDS SUMMARY | ~2020-03-11 | XMS | Encounter Summary ---
Demographics + + + | Address | [address] | | | [place] [address] | + + + | Home Phone [...] Team Providers + +------+ + | Care Hearing Aid Repairer Name | Role | Phone | + +------+ + PCP | Unavailable | + +------+ + Encounter Details +--------+ + + + + | Date | Type | Department | Care Team | Description | +--------+ + + + + | 10/05/ | Hospital | [facility] | Conversion | End stage renal | | 2016 | Encounter | CENTER CV INTRA OP | Transaction, | disease (HCC) | | | | [address] | Provider Unknown | | | | | [place], [place] | [phone] | | | | | [address] | | | | | | [phone] | Uriel Lee, | | | | | | [address] | | | | | | [place], [place] | | | | | | [address] | | | | | | | [...] Service: (none) Author Type: Registered Nurse Filed: 10/06/15 485 Date of Service: 10/06/151431 Status: Signed Coal Screener: Randi Couch, RN (Registered Nurse) Procedure complete. Pt tolerated well. vss . Discharge instructions given to pt and . Pt will be discharged home ambulatory with family. docume nted in this encounter H&P Notes Bhanu Lee MD, MD - 10/06/2015 2:36 PM PDTFormatting of this note might be diffe rent from the original. H&P by Uriel Lee MD at 10/06/15 1436 Author: Uriel Lee MD Service: Interventional Radiology Author Type: Physician Filed: 10/06/15 1439 Date of Service: 10/06/15 1436 Status: Signed Coal Screener: Uriel Lee MD (Physician) [facility] Service: Interventional Radiology Admission History & Physical [...] pain, right upper quadrant 04/13/2012 Dialysis patient ([facility]) GI bleed 04/30/2012 from coumadin Walker as ambulation aid Gout Asthma pt not using inhaler any more, no symptoms DVT (deep venous thrombosis) ([facility]) x3 AV fistula ([facility]) lt arm Knee pain, right 07/06/2012 MSSA (methicillin susceptible Staphylococcus aureus) infection 04/11/2012 Anemia due to blood loss 04/30/2012 Amphetamine and other psychostimulant dependence, continuous ([facility]) 04/02/2012 Hyperphosphatemia 05/24/2012 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 Rash and nonspecific skin eruption 04/03/2012 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[facility]) 05/01/2012 Neuromuscular disorder ([facility]) neuropathy Hyperkalemia 11/09/2013 Chronic obstructive asthma with exacerbation ([facility]) 10/27/2013 SOB (shortness of breath) 10/27/2013 Diabetes mellitus type I ([facility]) Past Surgical History Procedure Laterality Date Colonoscopy with egd 05/01/2012 Procedure: COLONOSCOPY W/ EGD; Surgeon: John Singleton MD; Location: [facility] END[facility]COPY; Se rvice: Gastroenterology; Laterality: N/A; Av fistula placement 05/06/2012 Procedure: AV FISTULA; Surgeon: Oskar Meyer MD; Location: [facility] MAIN OR; Service: Vascul ar; Laterality: Left; Left arm possible right Unlisted procedure arthroscopy shoulder rt , ligaments Knee arthroscopy 07/07/2012 Procedure: KNEE - ARTHROSCOPY; Surgeon: Favio Raza MD; Location: [facility] MAIN OR; S ervice: Orthopedics; Laterality: Right; After 1530 Catheter removal 07/07/2012 Procedure: DIALYSIS CATHETER REMOVAL; Surgeon: Oskar Meyer MD; Location: [facility] BEDSIDE [place] OCEDURE; Service: General; Laterality: Right; perm cath Dialysis fistula creation 07/07/2012 Procedure: DIALYSIS CATHETER INSERTION; Surgeon: Oskar Meyer MD; Location: [facility] BEDSIDE PROCEDURE; Service: General; Laterality: Left; temporary dialysis catheter Av fistula repair 07/11/2012 Procedure: AV FISTULA GRAFT REPAIR/REVISION; Surgeon: Oskar Meyer MD; Location: [facility] OR; Service: Vascular; Laterality: Left; Superficialization of brachiobasilic fistula and right IJ perm cath insertion Dialysis fistula creation 07/11/2012 Procedure: DIALYSIS CATHETER INSERTION; Surgeon: Oskar Meyer MD; Location: [facility]; Service: Vascular; Laterality: Left; removed dialysis catheter from left neck and placed new on in left chest, attempted in right neck but unable to place Av fistula placement Right 02/09/2014 Procedure: AV FISTULA; Surgeon: Oskar Meyer MD; Location: [facility] OR; Service: Vascul ar; Laterality: Right; Superficialization of av fistula Right 03/30/2014 Procedure: AV FISTULA - SUPERFICIALIZATION; Surgeon: Oskar Meyer MD; Location: [facility] OR; Service: Vascular; Laterality: Right; Allergies Allergen [...] KIDS. CURRENTLY UNEMPLOYED, BEFOR E WORKED AT [employer] IN [employer]. Quit METHAMPHETAMINES PER PATIENT after t he [...] of tonsils, uvula and soft palate Disposition: [facility] Code Status: Prior Primary Care Physician: ROSA [...] distal subclavian vein with the good collaterals. 91275, | | | 72100, 51895 Electronically signed by Uriel Lee MD on [...] conscious sedation | | | and independent senior living supervision performed throughout the | | | [...] | | | needle and exchanged for 4-Marshallese micropuncture sheath. Initial | | | fistula pressure was obtained and fistulogram obtained from the | | | right cubital fossa to the right atrium. 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 4-Marshallese micropuncture sheath was exchanged for | | | 6-Marshallese short sheath over a 0.035, angled Glidewire. [...] using combination of 4 | | | Marshallese angled glide catheter and 0.035 angled Glidewire [...] adequate conscious | | sedation and independent senior living supervision performed throughout the | | procedure. [...] | | micropuncture needle and exchanged for 4-Marshallese micropuncture sheath. Initial fistula | | pressure was obtained and fistulogram obtained from the right cubital fossa to the | | right atrium. Given the focal, more than 70 percent stenosis in the mid right cephalic | | vein and occluded distal right subclavian vein, I decided to perform angioplasty of the | | venous lesions. 4-Marshallese micropuncture sheath was exchanged for 6-Marshallese short sheath | | over a 0.035, [...] Then, | | using combination of 4 Marshallese angled glide catheter and 0.035 angled Glidewire [...] vein with the good | | collaterals. 75523, 11407, 19698 Electronically signed by Uriel Lee MD on | | 10/06/2015 3:32 PM | | | |85526, 37568, 67832 | | | | | + + [...] distal subclavian vein with the good collaterals. 91651, | | | 81580, 87116 Electronically signed by Uriel Lee MD on | | | 10/06/2015 3:32 PM | | + + + + + + | Narrative | Performed At | + + + | [facility] 10/06/2015 2:06 PM HISTORY: [...] conscious sedation | | | and independent senior living supervision performed throughout the | | | [...] | | | needle and exchanged for 4-Marshallese micropuncture sheath. Initial | | | fistula pressure was obtained and fistulogram obtained from the | | | right cubital fossa to the right atrium. 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 4-Marshallese micropuncture sheath was exchanged for | | | 6-Marshallese short sheath over a 0.035, angled Glidewire. [...] using combination of 4 | | | Marshallese angled glide catheter and 0.035 angled Glidewire [...] adequate conscious | | sedation and independent senior living supervision performed throughout the | | procedure. [...] | | micropuncture needle and exchanged for 4-Marshallese micropuncture sheath. Initial fistula | | pressure was obtained and fistulogram obtained from the right cubital fossa to the | | right atrium. Given the focal, more than 70 percent stenosis in the mid right cephalic | | vein and occluded distal right subclavian vein, I decided to perform angioplasty of the | | venous lesions. 4-Marshallese micropuncture sheath was exchanged for 6-Marshallese short sheath | | over a 0.035, [...] Then, | | using combination of 4 Marshallese angled glide catheter and 0.035 angled Glidewire [...] vein with the good | | collaterals. 60875, 50533, 05046 Electronically signed by Uriel Lee MD on | | 10/06/2015 3:32 PM | | | |27394, 27082, 41420 | | | | | + + documented in this encounter Visit Diagnoses + + | Diagnosis | + + | End stage renal disease (HCC) End stage renal disease | + + documented in this encounter
--- OUTSIDE RECORDS SUMMARY | ~2020-03-11 | XMS | Encounter Summary ---
Demographics + + + | Address | [address] | | | [place] [address] | + + + | Home Phone | | + + + | Preferred Language | Unknown | + + + | Marital Status | Single | + + + | Faith Affiliation | Unknown | + + + | Race | or | + + + | Ethnic Group | Not or | + + + Author + + + | Author | [facility] [employer] [facility] | + + + | Organization | [facility] [employer] [facility] | [...] Team Providers + +------+ + | Care Practice Representative Name | Role | Phone | [...] + + | 02/21/ | Emergency | [facility] Emergency | | | | 2016 | | Department [address] | | | [address] | | | | | | [facility] | | | | | | [place], [place] | | | | | | [address] | | | | | | [phone] | | | +--------+ + + + [...] documented as of this encounter Miscellaneous Notes Comm Sim Blount - 02/21/2017 7:54 AM PDTNo call back from ref, taking pt ou t of EPIC omm Orestes - emanuelSim - 02/21/2017 6:00 AM PDT5:58 AM 02/21/2017 Dr. santacruz, [place], ED, PT: Enrique Potter : 1965 DX: progressive neck swelling, intubated MICU req, advised ref that [facility] is at capacity for adult ICU beds, ref will call another fa colbyty, hold in EPIC in case ref calls backElectronically signed by Sim Cobb at 02/21 6:01 AM PDTdocumented in this encounter Plan of Treatment +--------+ [...] [address] | | | | | | [facility] [address] | | | | | | [place], [place] | | | | | | [address] | | | | | | [phone] | | | | | | | [...] Rd | | | | | | [place], [place] | | | | | | [address] | | | | | | [phone] | | | | | | | | +--------+ + + + + | 03/23/ | Appointment | Radiology | Taiwo Marin | | | 2019 | | | MD [address] | | | | | | [address] | | | | | | [place], [place] | | | | | | [address] | | | | | | [phone] | | | | | | | | +--------+ + + + + | 03/23/ | Office | Social Work | Michael Lina, | | 2019 | Visit | | RESIDENTIAL LIVING ASSISTANT [address] | | | | | | [address] | | | | | | [place], [place] | | | | | | [address] | | | | | | [phone] | | +--------+ + + + + | 03/24/ | Telephone-S | Nutrition | Debby Salvador, | | | 2019 | cheduled | | [address] | | | | | | [address] | | | | | | [place], [place] | | | | | | [address] | | | | | | [phone] | | | | | | | | +--------+ + + + + documented as of this encounter Visit Diagnoses Not on filedocumented in this encounter"
--- OUTSIDE RECORDS SUMMARY | ~2020-03-11 | XMS | Encounter Summary ---
Demographics + + + | Address | [address] | | | [place] [address] | + + + | Home Phone | | + + + | Preferred Language | Unknown | + + + | Marital Status | Unknown | + + + | Anabaptism Affiliation | [id number] | + + + [...] Providers + +------+ + | Care Director On Air Name | Role | Phone | + +------+ + PCP | Unavailable | + +------+ + Encounter Details +--------+ + + + + | Date | Type | Department | Care Team | Description | +--------+ + + + + | 07/08/ | Hospital | [facility] | Conversion | Pain | | 2014 | Encounter | CONVERSION [address] | Transaction, | | | | | [address] | Provider Unknown | | | | | [place], [place] | [phone] | | | | | [address] | | | | | | [phone] | | | +--------+ + + + [...]
--- OUTSIDE RECORDS SUMMARY | ~2020-03-11 | XMS | Encounter Summary ---
Demographics + + + | Address | [address] | | | [place] [address] | + + + | Home Phone | | + + + | Preferred Language | Unknown | + + + | Marital Status | Single | + + + | Scientology Affiliation | Unknown | + + + | Race | or | + + + | Ethnic Group | Not or | + + + Author + + + | Author | [facility] | + + + | Organization | [facility] [facility] | + + + [...] Team Providers + +------+ + | Care Conservation Coordinator Name | Role | Phone | + +------+ + | Berenice Hicks | PCP | | + +------+ + Reason for Visit +--------+--------+ + | Reason | Onset | Comments | | | Date | | +--------+--------+ + | Other | 12/12/ | Medical records review. | | | 2019 | | +--------+--------+ + Encounter Details +--------+ + + + + | Date | Type | Department | Care Team | Description | +--------+ + + + + | 12/12/ | Telephone | Kidney Transplant | Taiwo Marin | Other (Medical | | 2020 | | at [facility] [address] | [address] | records review.) | | | | [address] | [address] | | | | | Physician's | [place], [place] | | | | | [place]ise, 4th floor | [address] | | | | | [place], [place] | [phone] | | | | | [address] | | | | | | [phone] | | | +--------+ + + + [...] this encounter Miscellaneous Notes Telephone Encounter - Taiwo Marin MD - 12/13/2019 12:06 PM PDT Today I performed an extensive chart review pertaining to Mr. Enrique Potter, in preparation for a pre-transplant evaluation on 12/16/2019. I reviewed notes from providers, discharge summaries from previous hospitalizations and vis its to the emergency room, pathology reports, laboratory data, and imaging studies. It took me 36 minutes to perform this review. Taiwo Marin MD KIDNEY TRANSPLANT AT [facility] [address] [facility], [address] [place] [address], [place] [address] documented in this encounter Plan of Treatment [...] Rd | | | | | | [place], [place] | | | | | | [address] | | | | | | [phone] | | | | | | | [...] Rd | | | | | | [place], [place] | | | | | | [address] | | | | | | [phone] | | | | | | | | +--------+ + + + + | 03/23/ | Appointment | Radiology | Taiwo Marin | | | 2019 | | | MD [address] | | | | | | [address] | | | | | | [place], [place] | | | | | | [address] | | | | | | [phone] | | | | | | | | +--------+ + + + + | 03/23/ | Office | Social Work | Lina Rodriguez, | | | 2019 | Visit | | [facility] [address] | | | | | | [address] | | | | | | [place], [place] | | | | | | [address] | | | | | | [phone] | | +--------+ + + + + | 03/24/ | Telephone-S | Nutrition | Debby Salvador, | | | 2020 | [address] | | [address] [employer] | | | | | | [address] | | | | | | [place], [place] | | | | | | [address] | | | | | | [phone] | | | | | | | [...]
--- OUTSIDE RECORDS SUMMARY | ~2020-03-11 | XMS | Encounter Summary ---
Demographics + + + | Address | [address] | | | [place] [address] | + + + | Home Phone [...] Author + + + | Author | [facility] | | | and [place] | + + + | Organization | [facility] | | | and [...] Team Providers + +------+ + | Care Compressed Gas Equipment Mechanic Name | Role | Phone | + +------+ + PCP | Unavailable | + +------+ + Encounter Details +--------+ + + + + | Date | Type | Department | Care Team | Description | +--------+ + + + + | 11/09/ | Hospital | [facility] | Conversion | End stage renal | | 2014 | Encounter | CENTER CV INTRA OP | Transaction, | disease (HCC); Other | | | | [address] | Provider Unknown | complications due | | | | [place], [place] | [phone] | to other vascular | | | | [address] | | device, implant, and | | | | [phone] | Uriel Sawyer, | graft (HCC) | | | | | [address] | | | | | | [place], [place] | | | | | | [address] | | | | | | | [...] + + +---------+ + + | [employer] | Use as directed by | | [...] 11/09/132031 Date of Service: 11/09/132030 Status: Signed Bill Peddler: Tisha Vaughan RN (Registered Nurse) Meets discharge criteria. Right chest site benign with no ooze or hematoma. Discharge instr uctions given to patient and . All questions answered and understanding stated. Transpor gela via wheelchair to ED [facility] for treatment for K 5.[address] Timmons. onver quique Transaction, Provider Unknown - 11/09/2013 8:20 PM PDT Nurse Progress Note by Tisha Vaughan RN at 11/09/132019 Author: Tisha Vaughan RN Service: (none) Author Type: Registered Nurse Filed: 11/09/132019 Date of Service: 11/09/132019 Status: Signed Bill Peddler: Tisha Vaughan RN (Registered Nurse) Small amount ooze from upper dialysis cath insertion site. Light pressure dressing applied. docume nted in this encounter H&P Notes Bhanu Sawyer MD, MD - 11/10/2013 10:52 AM PDTFormatting of this note might be diffe rent from the original. H&P by Uriel Sawyer MD at 11/10/131051 Author: Uriel Sawyer MD Service: Interventional Radiology Author Type: Physician Filed: 11/10/13 1102 Date of Service: 11/10/13 105 Status: Signed Bill Peddler: Uriel Sawyer MD (Physician) [facility] Service: Interventional Radiology Admission History & [...] W/ EGD; Surgeon: John Singleton MD; Location: [facility] ENDOSCOPY; Se rvice: Gastroenterology; Laterality: N/A; Av fistula placement 05/06/2012 Procedure: AV FISTULA; Surgeon: Oskar Meyer MD; Location: [facility] MAIN OR; Service: Vascul ar; Laterality: Left; Left arm possible right Unlisted procedure arthroscopy shoulder rt , ligaments Knee arthroscopy 07/07/2012 Procedure: KNEE - ARTHROSCOPY; Surgeon: Favio Raza MD; Location: [facility] MAIN OR; ervice: Orthopedics; Laterality: Right; After 1530 Catheter removal 07/07/2012 Procedure: DIALYSIS CATHETER REMOVAL; Surgeon: Oskar Meyer MD; Location: [facility] BEDSIDE IN OCEDURE; Service: General; Laterality: Right; perm cath Dialysis fistula creation 07/07/2012 Procedure: DIALYSIS CATHETER INSERTION; Surgeon: Oskar Meyer MD; Location: [facility] BED[facility] PROCEDURE; Service: General; Laterality: Left; temporary dialysis catheter Av fistula repair 07/11/2012 Procedure: AV FISTULA GRAFT REPAIR/REVISION; Surgeon: Oskar Meyer MD; Location: [facility] OR; Service: Vascular; Laterality: Left; Superficialization of brachiobasilic fistula and right IJ perm cath insertion Dialysis fistula creation 07/11/2012 Procedure: DIALYSIS CATHETER INSERTION; Surgeon: Oskar Meyer MD; Location: [facility] MAIN OR; Service: Vascular; Laterality: Left; [...] times daily. Yes CLARENCE Earl ergocalciferol (DRISDOL) 02365 UNITS capsule Take 50,000 Units by mouth [...] KIDS. CURRENTLY UNEMPLOYED, BEFOR E WORKED AT [employer] IN [employer]. Quit METHAMPHETAMINES PER PATIENT after t he [...] mmHg (11/11 0714) Heart Rate: [94-102] 99 (11/10 0012) Resp: [14-20] 16 (11/11 11) SpO2: [98 [...] portion of tonsil s and uvula Disposition: [facility] Code Status: Prior Primary Care Physician: [facility] URIEL SAWYER MD 11/10/2013 10:53 AM [...] Successful | | | placement of a 14.5-Bahamian dual-lumen 19-cm tunneled hemodialysis | | | catheter with its tip in the upper portion of the right atrium without | | | incidence. 01273, 67018, 23112 | | + + + + + [...] | vein. 3. Placement of 19 cm, 14.5-Bahamian dual-lumen tunneled | | | palindrome hemodialysis [...] conscious sedation and independent | | | shelter supervision of the conscious sedation was performed [...] records. 3. Upper chest radiograph shows dual-lumen, 14.5-Bahamian, | | | 19-cm, tunneled dialysis catheter [...] | micropuncture needle and exchanged for a 4-Bahamian micropuncture sheath | | | over a 0.018 wire. Skin in the infraclavicular region was | | | infiltrated with 1% lidocaine and a 5-mm skin incision was made. A | | | 14.5-Bahamian, dual-lumen, 19-cm tunneled hemodialysis catheter was | | | placed a subcutaneous tunnel using a metallic tunneler. The 4-Bahamian | | | sheath was exchanged for a 0.035, 3-mm J-wire with its tip in the | | | right atrium under fluoroscopy guidance. The skin and subcutaneous | | | tract was dilated using at 12 and 14-Bahamian facial dilators. A | | | 15-Bahamian peel-away sheath was placed over the wire [...] external jugular vein.3. Placement of 19 cm, 14.5-Bahamian dual-lumen | | tunneled palindrome hemodialysis catheter [...] adequate | | conscious sedation and independent shelter supervision of the conscious sedation | | [...] | | Upper chest radiograph shows dual-lumen, 14.5-Bahamian, 19-cm, tunneled dialysis catheter | | with [...] a micropuncture needle and exchanged for a 4-Bahamian micropuncture sheath over a | | 0.018 wire. Skin in the infraclavicular region was infiltrated with 1% lidocaine and a | | 5-mm skin incision was made. A 14.5-Bahamian, dual-lumen, 19-cm tunneled hemodialysis | | catheter was placed a subcutaneous tunnel using a metallic tunneler. The 4-Bahamian | | sheath was exchanged for a 0.035, 3-mm J-wire with its tip in the right atrium under | | fluoroscopy guidance. The skin and subcutaneous tract was dilated using at 12 and | | 14-Bahamian facial dilators. A 15-Bahamian peel-away sheath was placed over the wire [...] veins.2. | | Successful placement of a 14.5-Bahamian dual-lumen 19-cm tunneled hemodialysis catheter | | with its tip in the upper portion of the right atrium without incidence. 94307, 76770, | | 00825 | |IMPRESSION: | | | |1. Sonography of the lower neck veins. | |2. Successful placement of a 14.5-Bahamian dual-lumen 19-cm tunneled hemodialysis catheter w ith its tip in the upper portion of the right atrium without incidence. | | | |64559, 47350, 00447 | | | | | + + US Guided Vascular Access (11/09/2013 7:36 PM PDT) + + | Specimen | + + | | + + + + + | Impressions | Performed At | + + + | 1. Sonography of the lower neck veins. 2. Successful | | | placement of a 14.5-Bahamian dual-lumen 19-cm tunneled hemodialysis | | | catheter with its tip in the upper portion of the right atrium without | | | incidence. 68862, 70213, 76679 | | + + + + + [...] | vein. 3. Placement of 19 cm, 14.5-Bahamian dual-lumen tunneled | | | palindrome hemodialysis [...] conscious sedation and independent | | | shelter supervision of the conscious sedation was performed [...] records. 3. Upper chest radiograph shows dual-lumen, 14.5-Bahamian, | | | 19-cm, tunneled dialysis catheter [...] | micropuncture needle and exchanged for a 4-Bahamian micropuncture sheath | | | over a 0.018 wire. Skin in the infraclavicular region was | | | infiltrated with 1% lidocaine and a 5-mm skin incision was made. A | | | 14.5-Bahamian, dual-lumen, 19-cm tunneled hemodialysis catheter was | | | placed a subcutaneous tunnel using a metallic tunneler. The 4-Bahamian | | | sheath was exchanged for a 0.035, 3-mm J-wire with its tip in the | | | right atrium under fluoroscopy guidance. The skin and subcutaneous | | | tract was dilated using at 12 and 14-Bahamian facial dilators. A | | | 15-Bahamian peel-away sheath was placed over the wire [...] external jugular vein.3. Placement of 19 cm, 14.5-Bahamian dual-lumen | | tunneled palindrome hemodialysis catheter [...] adequate | | conscious sedation and independent shelter supervision of the conscious sedation | | [...] | | Upper chest radiograph shows dual-lumen, 14.5-Bahamian, 19-cm, tunneled dialysis catheter | | with [...] a micropuncture needle and exchanged for a 4-Bahamian micropuncture sheath over a | | 0.018 wire. Skin in the infraclavicular region was infiltrated with 1% lidocaine and a | | 5-mm skin incision was made. A 14.5-Bahamian, dual-lumen, 19-cm tunneled hemodialysis | | catheter was placed a subcutaneous tunnel using a metallic tunneler. The 4-Bahamian | | sheath was exchanged for a 0.035, 3-mm J-wire with its tip in the right atrium under | | fluoroscopy guidance. The skin and subcutaneous tract was dilated using at 12 and | | 14-Bahamian facial dilators. A 15-Bahamian peel-away sheath was placed over the wire [...] veins.2. | | Successful placement of a 14.5-Bahamian dual-lumen 19-cm tunneled hemodialysis catheter | | with its tip in the upper portion of the right atrium without incidence. 14714, 22148, | | 60955 | |IMPRESSION: | | | |1. Sonography of the lower neck veins. | |2. Successful placement of a 14.5-Bahamian dual-lumen 19-cm tunneled hemodialysis catheter w ith its tip in the upper portion of the right atrium without incidence. | | | |40718, 28802, 78745 | | | | | + + Potassium (11/09/2013 6:30 PM PDT) + + + + + + | Component | Value | Ref Range | Performed | Pathologist | | | | | At | Signature | + + + + + + | K | 5.6 (H)Comment: Testing | 3.5 - 4.9 | EXTERNAL | | | | performed at [facility];[address] | mmol/L | LAB | | | | [address];[place], [place] | | | | | | [address] | | | | + + + [...] EXTERNAL LAB | | Testing performed at [facility];[address] [facility];[place] [address] MRSA PCR | | | NEGATIVE Testing performed at | | | [facility];[address] [facility];[place] [address] | | + + + + +---------+ [...]
--- OUTSIDE RECORDS SUMMARY | ~2020-03-11 | XMS | Encounter Summary ---
Demographics + + + | Address | [address] | | | [place] [address] | + + + | Home Phone [...] Team Providers + +------+ + | Care Jewel Hole Finish Opener Name | Role | Phone | + +------+ + PCP | Unavailable | + +------+ + Encounter Details +--------+ + + + + | Date | Type | Department | Care Team | Description | +--------+ + + + + | 02/09/ | Hospital | [facility] | Oskar Meyer MD | | | 2014 | Encounter | [facility] | [address] | | | | | [address] | [place], [place] | | | | | [place], [place] | [address] | | | | | [address] | [phone] | | | | | [phone] | | | +--------+ + + + [...] Type: Advanced Registered N urse Practitioner Filed: 02/09/14711 Date of Service: 02/09/14711 Status: Signed Can Capper: DARRELL Medellin (Advanced Registered Nurse Practitioner) [facility] Service: Vascular Surgery Pre-Operative History [...] W/ EGD; Surgeon: John Singleton MD; Location: [facility] ENDOSCOPY; Se rvice: Gastroenterology; Laterality: N/A; Av fistula placement 05/06/2012 Procedure: AV FISTULA; Surgeon: Oskar Meyer MD; Location: [facility] OR; Service: Vascul ar; Laterality: Left; Left arm possible right Unlisted procedure arthroscopy shoulder rt , ligaments Knee arthroscopy 07/07/2012 Procedure: KNEE - ARTHROSCOPY; Surgeon: Favio Raza MD; Location: [facility] MAIN OR; ervice: Orthopedics; Laterality: Right; After 1530 Catheter removal 07/07/2012 Procedure: DIALYSIS CATHETER REMOVAL; Surgeon: Oskar Meyer MD; Location: [facility] BEDSIDE [place] OCEDURE; Service: General; Laterality: Right; perm cath Dialysis fistula creation 07/07/2012 Procedure: DIALYSIS CATHETER INSERTION; Surgeon: Oskar Meyer MD; Location: [facility] BEDSIDE PROCEDURE; Service: General; Laterality: Left; temporary dialysis catheter Av fistula repair 07/11/2012 Procedure: AV FISTULA GRAFT REPAIR/REVISION; Surgeon: Oskar Meyer MD; Location: [facility] OR; Service: Vascular; Laterality: Left; Superficialization of brachiobasilic fistula and right IJ perm cath insertion Dialysis fistula creation 07/11/2012 Procedure: DIALYSIS CATHETER INSERTION; Surgeon: Oskar Meyer MD; Location: [facility] MAIN OR; Service: Vascular; Laterality: Left; removed [...] KIDS. CURRENTLY UNEMPLOYED, BEFOR E WORKED AT [employer] [place]. Quit METHAMPHETAMINES PER PATIENT after t he [...] answered to their satisfaction. Primary Care Physician: [facility] DARRELL Medellin 02/08/2014 *CORE MEASURES REMINDER: If [...] Service: Vascular Surgery Author Type: Physician Filed: 02/09/14 0829 Date of Service: 02/09/14826 Status: Signed Can Capper: Oskar Meyer MD (Physician) [facility] Service: Vascular Surgery Operative Note Pre-operative Diagnosis: ESRD and need for new superintendent container terminal access Post-operative Diagnosis: Same Procedure(s): Right arm brachiobasilic fistula creation Surgeon: Oskar Meyer MD Coconut Candy Maker(s): DARRELL Medellin Anesthesia: Monitor Anesthesia Care and [...] | | Fingerstick | performed at [facility];[address] | | LAB | | | | [address];[place], [place] | | | | | | [address] | | | | + + + [...] | | Fingerstick | performed at [facility];[address] | | LAB | | | | [address];[place] | | | | | | [address] | | | | + + + [...] LAB | | | | Blvd;[place] [address] | | | | + + + + + + | Antibody | NEGATIVE | | EXTERNAL | | | Screen | | | LAB | | + + + + + + | Antibody | Testing performed at | | EXTERNAL | | | Screen | [facility];[address] | | LAB | | | | [address];[place] [address] | | | | + + + + + + | BB BAND | [id number] | | EXTERNAL | | | | | | LAB | | + + + + + + | BB BAND | Testing performed at | | EXTERNAL | | | | [facility];[address] | | LAB | | | | [address];[place] [address] | | | | + + + + + + | Antibody ID | ANTI MEENA NOT DETECTED | | EXTERNAL | | | | AT THIS TIME | | LAB | | + + + + + + | Antibody ID | Testing performed at | | EXTERNAL | | | | [facility];[address] | | LAB | | | | [address];[place] [address] | | | | + + + + + + | AMANDA | POSITIVE | | EXTERNAL | | | | | | LAB | | + + + + + + | AMANDA | Testing performed at | | EXTERNAL | | | | [facility];[address] | | LAB | | | | [address];[place] [address] | | | | + + + + + + | AMANDA IgG | POSITIVE | | EXTERNAL | | | | | | LAB | | + + + + + + | AMANDA IgG | Testing performed at | | EXTERNAL | | | | [facility];[address] | | LAB | | | | Blvd;[place] [address] | | | | + + + + + + | AMANDA | NEGATIVE | | EXTERNAL | | | COMPLEMENT | | | LAB | | + + + + + + | AMANDA | Testing performed at | | EXTERNAL | | | COMPLEMENT | [facility];[address] | | LAB | | | | [address];[place] [address] | | | | + + + [...]
--- OUTSIDE RECORDS SUMMARY | ~2020-03-11 | XMS | Encounter Summary ---
Demographics + + + | Address | [address] | | | [place] [address] | + + + | Home Phone [...] Team Providers + +------+ + | Care Agricultural Researcher Name | Role | Phone | + +------+ + PCP | Unavailable | + +------+ + Encounter Details +--------+ + + + + | Date | Type | Department | Care Team | Description | +--------+ + + + + | 04/29/ | Hospital | [facility] | Conversion | | | 2013 | Encounter | [facility] | Transaction, | | | | | OUTPATIENT | Provider Unknown | | | | | PROCEDURES [address] | [phone] | | | | | [address] | | | | | | [place], [place] | | | | | | [address] | | | | | | [phone] | | | +--------+ + + + [...]
--- OUTSIDE RECORDS SUMMARY | ~2020-03-11 | XMS | Encounter Summary ---
Demographics + + + | Address | [address] | | | [place] [address] | + + + | Home Phone | | + + + | Preferred Language | Unknown | + + + | Marital Status | Single | + + + | Islam Affiliation | Unknown | + + + | Race | or | + + + | Ethnic Group | Not or | + + + Author + + + | Author | [facility] | + + + | Organization | [facility] [employer] [facility] | + [...] Team Providers + +------+ + | Care Executive Services Administrator Name | Role | Phone | + +------+ + | Berenice Hicks | PCP | | + +------+ + Reason for Visit + +--------+ + | Reason | Onset | Comments | | | Date | | + +--------+ + | Pre-Transplant | 11/11/ | re-schedule clinic | | Evaluation | 2019 | | + +--------+ + Encounter Details +--------+ + + + + | Date | Type | Department | Care Team | Description | +--------+ + + + + | 11/11/ | Telephone | Clinical | Makenna Sheldon, | Pre-Transplant | | 2020 | | Transplant Services | RN [address] [facility] | Evaluation | | | | [address] [facility] | [address] | (re-schedule clinic) | | | | [address] [place], | [place], [place] | | | | | [place] [address] | [address] | | | | | [phone] | | | +--------+ + + + [...] Notes Telephone Encounter - Joanne Jha - 11/25/2019 3:35 PM PDTConfirmed with patient r/s Jorge lee New consult for December 16, 2019 P M PDTTelephone Encounter - Makenna Sheldon RN - 11/12/2019 11:43 AM PDTPatient made it to labs yesterday but not to clinic. Needs to reschedule. Routing to [facility]. docum ented in this encounter Plan of Treatment +--------+ [...] | | | | | [address] | | | | | | [place], [place] | | | | | | [address] | | | | | | [phone] | | | | | | | [...] Rd | | | | | | [place] | | | | | | [address] | | | | | | [phone] | | | | | | | | +--------+ + + + + | 03/23/ | Appointment | Radiology | Taiwo Marin | | | 2019 | | | MD [address] | | | | | | [address] | | | | | | [place], [place] | | | | | | [address] | | | | | | [phone] | | | | | | | | +--------+ + + + + | 03/23/ | Office | Social Work | Lina Rodriguez, | | | 2019 | Visit | | APPEALS AND GENERALIST CLERK [address] | | | | | | [address] | | | | | | [place], [place] | | | | | | [address] | | | | | | [phone] | | +--------+ + + + + | 03/24/ | Telephone-S | Nutrition | Debby Salvador, | | | 2019 | cheduled | | [address] | | | | | | [address] | | | | | | [place], [place] | | | | | | [address] | | | | | | [phone] | | | | | | | | +--------+ + + + + documented as of this encounter Visit Diagnoses Not on filedocumented in this encounter"
--- OUTSIDE RECORDS SUMMARY | ~2020-03-11 | XMS | Encounter Summary ---
Demographics + + + | Address | [address] | | | [place] [address] | + + + | Home Phone [...] + + + | Author | [facility] | | | and [place] | + + + | Organization | [facility] | | | and [...] Team Providers + +------+ + | Care Slot Supervisor Name | Role | Phone | + +------+ + PCP | Unavailable | + +------+ + Encounter Details +--------+ + + + + | Date | Type | Department | Care Team | Description | +--------+ + + + + | 10/05/ | Emergency | [facility] | Inocencio Burden | ESRD on hemodialysis | | 2018 | | MEDICAL CENTER | [address] | ([facility]); Cellulitis | | | | EMERGENCY CENTER | [address] | of right upper | | | | [address] | [place], [place] | extremity | | | | [place], [place] | [address] | | | | | [address] | [phone] | | | | | [phone] | | | +--------+ + + + [...] original. Consults by Obdulio Ellison MD at 10/05/171645 Author: Obdulio Ellison MD Service: Vascular Surgery Author Type: Physician Filed: 10/05/17 7604 Date of Service: 10/05/171645 Status: Signed Vinyl Hanger: Obdulio Ellison MD (Physician) [facility] Service: Vascular Surgery Initial Consult Note Date [...] inhaler any more, no symptoms AV fistula ([facility]) lt arm 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 Chronic obstructive asthma with exacerbation ([facility]) 10/27/2013 Chronic systolic heart failure ([facility]) 09/10/2016 Diabetes mellitus type I ([facility]) Dialysis patient ([facility]) DVT (deep venous thrombosis) ([facility]) x3 GI bleed 04/30/2012 from coumadin Gout Hyperkalemia 11/09/2013 Hyperlipidemia Hyperphosphatemia 05/24/2012 Hypertension Hyponatremia 09/08/2016 Knee pain, right 07/06/2012 MSSA (methicillin susceptible Staphylococcus aureus) infection 04/11/2012 Neuromuscular disorder ([facility]) neuropathy 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[facility]) 05/01/2012 Rash and nonspecific skin eruption 04/03/2012 SOB (shortness of breath) 10/27/2013 Thyroid disease Walker as ambulation aid Past Surgical History Procedure Laterality Date AV FISTULA PLACEMENT Right 02/09/2014 Procedure: AV FISTULA; Surgeon: Oskar Meyer MD; Location: [facility] MAIN OR; Service: Vascula r; Laterality: Right; AV FISTULA PLACEMENT Left 05/06/2012 Procedure: AV FISTULA; Surgeon: Oskar Meyer MD; Location: [facility] MA[facility] OR; Service: Vascula r; Laterality: Left; Left arm possible right AV FISTULA REPAIR Left 07/11/2012 Procedure: AV FISTULA - GRAFT REPAIR/REVISION; Surgeon: Oskar Meyer MD; Location: [facility] IN OR; Service: Vascular; Laterality: Left; Superficialization of brachiobasilic fistula and right IJ perm cath insertion CATHETER REMOVAL Right 07/07/2012 Procedure: DIALYSIS CATHETER - REMOVAL; Surgeon: Oskar Meyer MD; Location: [facility] BEDSIDE P ROCEDURE; Service: General; Laterality: Right; perm cath COLONOSCOPY WITH EGD N/A 05/01/2012 Procedure: COLONOSCOPY W/ EGD; Surgeon: John Singleton MD; Location: [facility] ENDOSCOPY; Ser vice: Gastroenterology; Laterality: N/A; DIALYSIS FISTULA CREATION Left 07/11/2012 Procedure: DIALYSIS CATHETER - INSERTION; Surgeon: Oskar Meyer MD; Location: [facility] MA[facility] OR ; Service: Vascular; Laterality: Left; removed dialysis catheter from left neck and place d new on in left chest, attempted in right neck but unable to place DIALYSIS FISTULA CREATION Left 07/07/2012 Procedure: DIALYSIS CATHETER - INSERTION; Surgeon: Oskar Meyer MD; Location: [facility] BEDSIDE PROCEDURE; Service: General; Laterality: Left; temporary dialysis catheter KNEE ARTHROSCOPY Right 07/07/2012 Procedure: KNEE - ARTHROSCOPY; Surgeon: Favio Raza MD; Location: [facility] MAIN OR; rvice: Orthopedics; Laterality: Right; After 1530 SUPERFICIALIZATION OF AV FISTULA Right 03/30/2014 Procedure: AV FISTULA - SUPERFICIALIZATION; Surgeon: Oskar Meyer MD; Location: [facility] MA[facility] OR; Service: Vascular; Laterality: Right; [...] cellulitis. I spoke with Dr. Garg, his habitat management coordinator, who does not believe he needs dialysis at this t jelani. As a result, he recommended dosing with [...] are any additional questions. Obdulio Ellison MD, [facility] Vascular Surgery Clinic Location: [address] [place] [address]. [address] [address] (Office) documente d in this encounter ED Notes Conversion Transaction, Provider Unknown - 10/05/2017 2:53 PM PDTFormatting of this note m ight be different from the original. ED Notes by Ayde Lopez RN at 10/05/17 5874 Author: Ayde Lopez RN Service: (none) Author Type: Registered Nurse Filed: 10/05/17 7746 Date of Service: 10/05/171452 Status: Signed Vinyl Hanger: Ayde Lopez RN (Registered Nurse) Lab at bedside for blood culture draw. Ayde Lopez RN 10/05/17 2813 onver quique Transaction, Provider Unknown - 10/05/2017 2:04 PM PDT ED Notes by Malinda Elizabeth at 10/05/17 1404 Author: Malinda Elizabeth Service: (none) Author Type: Fuel Buyer Filed: 10/05/17 1404 Date of Service: 10/05/17 140 Status: Signed Vinyl Hanger: Malinda Elizabeth (Fuel Buyer) EKG given to Dr Jenise Elizabeth 10/05/17 1404 onver quique Transaction, Provider Unknown - 10/05/2017 1:47 PM PDT ED Notes by Ayde Lopez RN at 10/05/17 1347 Author: Ayde Lopez RN Service: (none) Author Type: Registered Nurse Filed: 10/05/17 134 Date of Service: 10/05/171346 Status: Signed Vinyl Hanger: Ayde Lopez RN (Registered Nurse) Lab notified for blood culture draw. Ayde Lopez RN 10/05/171346 onver quique Transaction, Provider Unknown - 10/05/2017 1:40 PM PDT ED Notes by SN Dawit at 10/05/17 134 Author: SN Dawit Service: (none) Author Type: Paper Sorter Filed: 10/05/17 134 Date of Service: 10/05/17 134 Status: Signed Vinyl Hanger: SN Dawit (Paper Sorter) Cosigner: Ayde Lopez RN at 09/22 10/09 1358 One unsuccessful IV insertion attempt in left forearm. SN Dawit 10/05/17 1340 nocencio Mcclure DO - 10/05/2017 1:09 PM PDTFormatting of this note might be different f rom the original. ED Provider Notes by Inocencio Budren DO at 10/05/17 2778 Author: Inocencio Burden DO Service: (none) Author Type: Physician Filed: 10/05/17 1805 Date of Service: 10/05/17 6895 Status: Signed Vinyl Hanger: Inocencio Burden DO (Physician) [facility] Department of Emergency Medicine 1:10 PM History [...] but states it continues to worsen. Pt's habitat management coordinator is Dr. Christianson. PCP: ANDRY DENG Past [...] Dialysis patient (HCC) DVT (deep venous thrombosis) ([facility]) x3 GI bleed 04/30/2012 from coumadin Gout [...] AV FISTULA; Surgeon: Oskar Meyer MD; Location: [facility] MA[facility] OR; Service: Vascula r; Laterality: Right; AV FISTULA PLACEMENT Left 05/06/2012 Procedure: AV FISTULA; Surgeon: Oskar Meyer MD; Location: [facility] MA[facility] OR; Service: Vascula r; Laterality: Left; Left arm possible right AV FISTULA REPAIR Left 07/11/2012 Procedure: AV FISTULA - GRAFT REPAIR/REVISION; Surgeon: Oskar Meyer MD; Location: [facility] IN OR; Service: Vascular; Laterality: Left; Superficialization of brachiobasilic fistula and right IJ perm cath insertion CATHETER REMOVAL Right 07/07/2012 Procedure: DIALYSIS CATHETER - REMOVAL; Surgeon: Oskar Meyer MD; Location: [facility] BEDSIDE P ROCEDURE; Service: General; Laterality: Right; perm cath COLONOSCOPY WITH EGD N/A 05/01/2012 Procedure: COLONOSCOPY W/ EGD; Surgeon: John Singleton MD; Location: [facility] ENDOSCOPY; Ser vice: Gastroenterology; Laterality: N/A; DIALYSIS FISTULA CREATION Left 07/11/2012 Procedure: DIALYSIS CATHETER - INSERTION; Surgeon: Oskar Meyer MD; Location: [facility] OR ; Service: Vascular; Laterality: Left; removed dialysis catheter from left neck and place d new on in left chest, attempted in right neck but unable to place DIALYSIS FISTULA CREATION Left 07/07/2012 Procedure: DIALYSIS CATHETER - INSERTION; Surgeon: Oskar Meyer MD; Location: [facility] BEDSIDE PROCEDURE; Service: General; Laterality: Left; temporary dialysis catheter KNEE ARTHROSCOPY Right 07/07/2012 Procedure: KNEE - ARTHROSCOPY; Surgeon: Favio Raza MD; Location: [facility] MAIN OR; Se rvice: Orthopedics; Laterality: Right; After 1530 SUPERFICIALIZATION OF AV FISTULA Right 03/30/2014 Procedure: AV FISTULA - SUPERFICIALIZATION; Surgeon: Oskar Meyer MD; Location: [facility] MA[facility] OR; Service: Vascular; Laterality: Right; [...] KIDS. CURRENTLY UNEMPLOYED, BEFOR E WORKED AT [employer] IN [employer]. Quit METHAMPHETAMINES PER PATIENT after t [...] vascular access problem Negative for chest pain, fwhezlhug-xw-luslkq, cough GI: Negative for abdominal pain, nausea, [...] mL IVPB (0 mg Intravenous Stopped 10/05/17 1728) cefTAZidime (FORTAZ) 1 g in sodium chloride (IV) 0.9 % 50 mL IVPB (1 g Intravenous New Bag 10/05/17 1732) Vitals: 10/05/17 1242 10/05/17 1331 10/05/17 1513 [...] Ref Range Date/Time Blood Culture Set 1 [[id number]] Collected: 10/05/171401 Order Status: Sent Specimen: Blood from Blood, peripheral draw Updated: 10/05/171612 Blood Culture Set 2 [[id number]] Collected: 10/05/17 1453 Order Status: Sent Specimen: Blood from Blood Updated: 10/05/171612 Troponin I, Lab [[id number]] Collected: 10/05/171401 Order Status: Completed Specimen: Blood Updated: 10/05/171437 TROPONIN I <0.020 0.00 - 0.10 ng/mL Cardiac Panel [[id number]] (Abnormal) Collected: 10/05/171401 Order Status: Completed Updated: [...] - 3.6 ng/mL CK-MB Index 4.7 CPK [[id number]] Collected: 10/05/17 1346 Order Status: Sent Specimen: [...] 1. No evidence of DVT. Narrative: ENRIQUE Fuller ROMY 1965 US UPPER EXTREMITY VENOUS DOPPLER RIGHT [...] Andry Deng MD Family Medicine As needed [address] [place] [id number] [facility] Emergency Department Emergency Medicine If symptoms worsen [address] [place] [address] [id number] Discharge Medications: New Prescriptions No new medications Dictation software, Airsynergyon, used which may contain error for similar sounding words even af ter review. Personal communication requested for any clarification. Procedures Additional Documentation Procedures Attending Provider Note: Inocencio Perez DO personally performed the services descri bed in this documentation, as scribed by Tony Laguna in my presence, and it is both accurate and complete. Chart Reviewed and Completed: 10/05/2017 6:04 PM Scribe: I Cande Burt, scribing for and in the presence of Inocencio Burden DO. Signed by: Cande Burt 10/05/2017 6:04 PM Inocencio Burden DO 10/05/17 1804 onversion Transaction, Provider Unknown - 10/05/2017 1:08 PM PDTFormatting of this note might be diff erent from the original. ED Notes by SN Dawit at 10/05/17 1308 Author: SN Dawit Service: (none) Author Type: Paper Sorter Filed: 10/05/17 1308 Date of Service: 10/05/17 1308 Status: Signed Vinyl Hanger: SN Dawit (Paper Sorter) Cosigner: Ayde Lopez RN at 09/22 10/09 1358 Placed pillow under patient's right arm and put up both side rails per patient's request. SN Dawit 10/05/17 1308 onver quique Transaction, Provider Unknown - 10/05/2017 12:51 PM PDT ED Notes by Ayde Lopez RN at 10/05/17 1251 Author: Ayde Lopez RN Service: (none) Author Type: Registered Nurse Filed: 10/05/17 1257 Date of Service: 10/05/17 1251 Status: Addendum Vinyl Hanger: Ayde Lopez RN (Registered Nurse) Related Notes: Original Note by Ayde Lopez RN (Registered Nurse) filed at 1255 Pt reports swelling to RUE X 6 days. Pt reports the swelling began after HD on Saturday. Thri ll and bruit present to RUE. Pt denies fever, CP, n/v/d. Pt normally gets HD M,W, andF. Pt reports he has missed last two HD appts. Ayde Lopez, HARDIK 10/05/17 1257 docume nted in this encounter [...] | Khalif Palm - 02/04/2019 8:18 AM MARIO Fuller JIM1963US UPPER EXTREMITY | | VENOUS DOPPLER 10/05/2017 2:52 PM INDICATION: Arm pain COMPARISON: [...] | | | | | ONLY, -COMPUTER (385), | | | | | | editor city [place] | | | | | | (79) on 10/07/2017 | | | | | | 12:53:35 AM | | | | + + + + + + + + | Specimen | + + | | + + + + + | Narrative | Performed At | + + + | Historically converted procedure from [facility] Epic environment | EXTERNAL LAB | + [...] | | | | | | ACUTE MO Testing | | | | | | performed at [facility];[address] | | | | | | [address];[place], [place] | | | | | | [address] | | | | + + [...]
--- OUTSIDE RECORDS SUMMARY | ~2020-03-11 | XMS | Encounter Summary ---
Demographics + + + | Address | [address] | | | [place] [address] | + + + | Home Phone [...] Team Providers + +------+ + | Care Services Host Name | Role | Phone | + +------+ + | Andry Deng DO | PCP | | + +------+ + Encounter Details +--------+ + + + + | Date | Type | Department | Care Team | Description | +--------+ + + + + | 05/12/ | Orders Only | [facility] | Conversion | | | 2013 | | INFECTIOUS DISEASE | Transaction, | | | | | [address] | Provider Unknown | | | | | [place], [place] | | | | | | [address] | (Fax) | | | | | [phone] | | | +--------+ + + + [...]
--- OUTSIDE RECORDS SUMMARY | ~2020-03-11 | XMS | Encounter Summary ---
Demographics + + + | Address | [address] | | | [place] [address] | + + + | Home Phone [...] Team Providers + +------+ + | Care Pool Player Name | Role | Phone | + +------+ + PCP | Unavailable | + +------+ + Encounter Details +--------+ + + + + | Date | Type | Department | Care Team | Description | +--------+ + + + + | 05/06/ | Hospital | [facility] | Oskar Meyer MD | ESRD (end stage | | 2012 | Encounter | [facility] | [address] | renal disease) (HCC) | | | | [address] | [place], [place] | | | | | [place], [place] | [address] | | | | | [address] | [phone] | | | | | [phone] | | | +--------+ + + + [...] 05/06/121717 Date of Service: 05/06/121716 Status: Signed Magnetic Prospecting Supervisor: Vaishnavi Robertson RN (Registered Nurse) Reviewed discharge [...] 05/06/121653 Date of Service: 05/06/121653 Status: Signed Magnetic Prospecting Supervisor: Kelley Toussaint RPH (Pharmacist) Renal Dosing [...] 05/06/121403 Date of Service: 05/06/121400 Status: Signed Magnetic Prospecting Supervisor: Vaishnavi Mccall RN (Registered Nurse) Passed onto [facility] that HD cath was accessed by Dr. Terry. Reminder to [employer] [facility] that Dr. Terry will need to re-heparinize the HD cath or the HD RN will need to be called to heparinize li ne. Dr. Terry stated he will makes sure PIV works then will heparinize. Vaishnavi Mccall RN 05/06/2012 2:04 PM docume nted in this encounter H&P Notes Oskar Meyer MD - 05/06/2012 1:30 PM PST H&P by Oskar Meyer MD at 05/06/121329 Author: Oskar Meyer MD Service: Vascular Surgery Author Type: Physician Filed: 05/06/121333 Date of Service: 05/06/121329 Status: Signed Magnetic Prospecting Supervisor: Oskar Meyer MD (Physician) [facility] Service: Vascular Surgery Admission History & Physical CHIEF COMPLAINT: ESRD HISTORY OF PRESENT ILLNESS The patient is a 47 y.o. male with PMH significant for DM and ESRD presents today for creat ion of new long term care phlebotomist access. He is currently dialyzing via a [...] Singleton MD; Location: [facility] ENDOSCOPY; rvice: Gastroenterology; Laterality: N/A; Allergies [...] dialysis days 17 Doses 0 ergocalciferol (DRISDOL) 78111 UNITS capsule Take 1 capsule by mouth [...] WITH [employer]; KIDSUNEMPLOYED BEFORE WORKED AT [employer] IN [employer] NONE ETOH QUIT 15 YEARS AGODRUGS: USES [...] yo male with DM and ESRD needing long term care phlebotomist dialysis access. Will decide on location for access in OR with ultrasound. PARQ done and consent was obtained. Disposition: OR Code Status: Prior Primary Care Physician: [facility] Oskar Meyer MD 05/06/2012 documented in this encoun ter Procedure Notes Conversion Transaction, Provider Unknown - 05/02/2012 2:17 PM PSTFormatting of this note m ight be different from the original. Pre-Procedure Instructions by Pina Bautista RN at 05/02/12 1417 Author: Pina Bautista RN Service: (none) Author Type: Registered Nurse Filed: 05/02/12 1422 Date of Service: 05/02/12 141 Status: Signed Magnetic Prospecting Supervisor: Pina Bautista RN (Registered Nurse) Spoke with [...] Physician Filed: 05/11/12 1001 Date of Service: 05/06/12 1804 Status: Signed Magnetic Prospecting Supervisor: Oskar Meyer MD (Physician) [facility] Date of : 1965 PREOPERATIVE DIAGNOSES 1. Endstage renal disease. 2. Need for dialysis access. POSTOPERATIVE DIAGNOSES 1. Endstage renal disease. 2. Need for dialysis access. PROCEDURE Left brachial-basilic fistula creation. SURGEON Oskar Meyer MD STAFF INTERNIST OFFICE BASED ONLY None. ANESTHESIA General endotracheal anesthesia. ESTIMATED BLOOD [...] taken to PACU in stable condition. P/ A/[id number] OSKAR MEYER MD p Note - Oskar Meyer MD - 05/06/2012 3:47 PM PST Brief Op Note by Oskar Meyer MD at 05/06/121546 Author: sOkar Meyer MD Service: Vascular Surgery Author Type: Physician Filed: 05/06/12 1548 Date of Service: 05/06/121546 Status: Signed Magnetic Prospecting Supervisor: Oskar Meyer MD (Physician) [facility] Service: Vascular Surgery Brief Op Note Pre-operative Diagnosis: ESRD and need for long term care phlebotomist dialysis access Post-operative Diagnosis: Same Procedure(s): Left arm brachiobasilic fistula creation Surgeon: Oskar Meyer MD Road Cleaner(s): None Anesthesia: General endotrachial anesthesia Estimated Blood [...] performed at [facility];[address] [place] [address];[place] [address] MRSA PCR | | | NEGATIVE Testing performed at | | | [address];[place] [address] | | + + + + +---------+ [...]
--- OUTSIDE RECORDS SUMMARY | ~2020-03-11 | XMS | Encounter Summary ---
Demographics + + + | Address | [address] | | | [place] [address] | + + + | Home Phone [...] Team Providers + +------+ + | Care Fixing Carpenter Name | Role | Phone | + +------+ + PCP | Unavailable | + +------+ + Encounter Details +--------+ + + + + | Date | Type | Department | Care Team | Description | +--------+ + + + + | 12/29/ | Hospital | [facility] | Conversion | ESRD (end stage | | 2014 | Encounter | CENTER [facility] OP | Transaction, | renal disease) (HCC) | | | | [address] | Provider Unknown | | | | | [place], [place] | [phone] | | | | | [address] | | | | | | [phone] | Juan Timmons MD | | | | | | [address] | | | | | | [address] [place], [place] | | | | | | [address] | | | | | | | [...] as of this encounter H&P Notes Bhanu Sawyer MD, MD - 12/29/2013 2:36 PM PDTFormatting of this note might be diffe rent from the original. H&P by Priscilla Sawyer MD at 12/29/13 6619 Author: Priscilla Sawyer MD Service: Interventional Radiology Author Type: Physician Filed: 12/29/13 1312 Date of Service: 12/29/131435 Status: Signed Capacitor Tester: Priscilla Sawyer MD (Physician) [facility] Service: Interventional Radiology Admission History & [...] W/ EGD; Surgeon: John Singleton MD; Location: [facility] ENDOSCOPY; Se rvice: Gastroenterology; Laterality: N/A; Av fistula placement 05/06/2012 Procedure: AV FISTULA; Surgeon: Oskar Meyer MD; Location: [facility] OR; Service: Vascul ar; Laterality: Left; Left arm possible right Unlisted procedure arthroscopy shoulder rt , ligaments Knee arthroscopy 07/07/2012 Procedure: KNEE - ARTHROSCOPY; Surgeon: Favio Raza MD; Location: [facility] MAIN OR; ervice: Orthopedics; Laterality: Right; After 1530 Catheter removal 07/07/2012 Procedure: DIALYSIS CATHETER REMOVAL; Surgeon: Oskar Meyer MD; Location: [facility] [place] OCEDURE; Service: General; Laterality: Right; perm cath Dialysis fistula creation 07/07/2012 Procedure: DIALYSIS CATHETER INSERTION; Surgeon: Oskar Meyer MD; Location: [facility] B[facility] PROCEDURE; Service: General; Laterality: Left; temporary dialysis catheter Av fistula repair 07/11/2012 Procedure: AV FISTULA GRAFT REPAIR/REVISION; Surgeon: Oskar Meyer MD; Location: [facility] OR; Service: Vascular; Laterality: Left; Superficialization of brachiobasilic fistula and right IJ perm cath insertion Dialysis fistula creation 07/11/2012 Procedure: DIALYSIS CATHETER INSERTION; Surgeon: Oskar Meyer MD; Location: [facility] MAIN OR; Service: Vascular; [...] KIDS. CURRENTLY UNEMPLOYED, BEFOR E WORKED AT [employer] IN [employer]. Quit METHAMPHETAMINES PER PATIENT after t he [...] uvula Code Status: Prior Primary Care Physician: [facility] PRIS[facility]LLA SAWYER MD 12/29/2013 2:36 PM documented i n [...] | in left upper chest for new, 14.5-Colombian, dual lumen, 27 cm tunneled | | | dialysis catheter over a wire under fluoroscopy guidance without | | | incidence. 35[address] upper the uppermost | | + + [...] | under fluoroscopy guidance. New, 27 cm 14.5-Colombian, dual-lumen | | | tunneled the catheter [...] left upper chest | | | shows 14.5-Colombian, 27 dual-lumen tunneled dialysis catheter with its [...] cava under fluoroscopy guidance. New, 27 cm 14.5-Colombian, dual-lumen tunneled the | | catheter was [...] the left upper | | chest shows 14.5-Colombian, 27 dual-lumen tunneled dialysis catheter with its tip in the | | upper right atrium. IMPRESSION: Successful exchange of the nonfunctioning tunneled | | dialysis catheter in left upper chest for new, 14.5-Colombian, dual lumen, 27 cm tunneled | | dialysis catheter over a wire under fluoroscopy guidance without incidence. 69048 upper | | the uppermost | | | |IMPRESSION: | |Successful exchange of the nonfunctioning tunneled dialysis catheter in left upper chest fo belen patiño, 14.5-Colombian, dual lumen, 27 cm tunneled dialysis catheter over a wire under fluorosco py guidance without incidence. | | | |518[address] upper the uppermost | | | | | + + documented in this encounter Visit Diagnoses + + | Diagnosis | + + | ESRD (end stage renal disease) (HCC) End stage renal disease | + + documented in this encounter
--- OUTSIDE RECORDS SUMMARY | ~2020-03-11 | XMS | Encounter Summary ---
Demographics + + + | Address | [address] | | | [place] [address] | + + + | Home Phone [...] Team Providers + +------+ + | Care Enterprise Security Architect Name | Role | Phone | + +------+ + PCP | Unavailable | + +------+ + Encounter Details +--------+ + + + + | Date | Type | Department | Care Team | Description | +--------+ + + + + | 02/08/ | Hospital | [facility] | Conversion | | | 2014 | Encounter | [facility] | Transaction, | | | | | CLINIC [address] | Provider Unknown | | | | | [address] [place], [place] | | | | | | [address] | | | | | | [phone] | | | +--------+ + + + [...] Procedure Notes Cee Castillo, Provider Unknown - 02/08/2014 4:54 PM PDTFormatting of this note m ight be different from the original. Pre-Procedure Instructions by Erin Johns RN at 02/08/141653 Author: Erin Johns RN Service: (none) Author Type: Registered Nurse Filed: 02/08/141654 Date of Service: 02/08/141653 Status: Signed Hand Trimmer: Erin Johns RN (Registered Nurse) Cap Co [...] Testing performed at [facility];[address] [facility];[place] [address] MRSA PCR | | | NEGATIVE Testing performed at | | | [facility];[address] [place] [address];[place] [address] | | + + + + +---------+ [...] | | Patient | performed at [facility];[address] | | LAB | | | | [address];[place], [place] | | | | | | [address] | | | | + + + [...] | performed at [facility] | | | | | | [address];[place], [place] | | | | | | [address] | | | | + + + [...] | LAB | | | | [address];[place] | | | | | | [address] | | | | + + + + + + | Non- | 3.93 (L)Comment: Testing | 4.20 - 5.70 | EXTERNAL | | | Red Blood | performed at [facility];[address] | M/uL | LAB | | | Cells | [address];[place] | | | | | Counted | [address] | | | | + + + + + + | Hemoglobin | 12.3 (L)Comment: Testing | 13.2 - 17.0 | EXTERNAL | | | | performed at [facility];888 | g/dL | LAB | | | | [address];[place] | | | | | | [address] | | | | + + + + + + | Hematocrit, | 36.0 (L)Comment: Testing | 39.0 - 50.0 % | EXTERNAL | | | POC | performed at [facility];[address] | | LAB | | | | [address];[place] | | | | | | [address] | | | | + + + + + + | MCV | 91.7Comment: Testing | 80.0 - 100.0 fl | EXTERNAL | | | | performed at [facility];[address] | | LAB | | | | [address];[place] | | | | | | [address] | | | | + + + + + + | MCH | 31.2Comment: Testing | 27.0 - 34.0 pg | EXTERNAL | | | | performed at [facility];[address] | | LAB | | | | [address];[place] | | | | | | [address] | | | | + + + + + + | MCHC | 34.1Comment: Testing | 32.0 - 35.5 | EXTERNAL | | | | performed at [facility];[address] | g/dL | LAB | | | | [address];[place] | | | | | | [address] | | | | + + + + + + | RDW-CV | 49.4Comment: Testing | 37 - 53 fl | EXTERNAL | | | | performed at [facility];[address] | | LAB | | | | [address];[place] | | | | | | [address] | | | | + + + + + + | Platelet | 249Comment: Testing | 150 - 400 K/uL | EXTERNAL | | | Count | performed at [facility];[address] | | LAB | | | Plasma | [address];[place] | | | | | | [address] | | | | + + + + + + | MPV | 6.7Comment: Testing | fl | EXTERNAL | | | | performed at [facility];[address] | | LAB | | | | [address];[place] | | | | | | [address] | | | | + + + + + + | Differentia | AUTOMATEDComment: | | EXTERNAL | | | l Type | Testing performed at | | LAB | | | | [facility];[address];[place] [address] | | | | + + + + + + | % Segmented | 67.3Comment: Testing | % | EXTERNAL | | | | performed at [facility];[address] | | LAB | | | Neutrophils | [address];[place] | | | | | | [address] | | | | + + + + + + | % | 15.7Comment: Testing | % | EXTERNAL | | | Lymphocytes | performed at [facility];[address] | | LAB | | | | [address];[place] | | | | | | [address] | | | | + + + [...] [place] | | | | | | [address] | | | | + + + + + + | % Basophils | 0.4Comment: Testing | % | EXTERNAL | | | | performed at [facility];[address] | | LAB | | | | [address];[place] | | | | | | [address] | | | | + + + + + + | Absolute | 4.2Comment: Testing | 1.9 - 7.4 K/uL | EXTERNAL | | | Segmented | performed at [facility];[address] | | LAB | | | Neutrophils | [address];[place] | | | | | | [address] | | | | + + + + + + | Absolute | 1.0Comment: Testing | 1.0 - 3.9 K/uL | EXTERNAL | | | Lymphocytes | performed at [facility];[address] | | LAB | | | | [address];[place] | | | | | | [address] | | | | + + + + + + | Absolute | 0.6Comment: Testing | 0 - 0.8 K/uL | EXTERNAL | | | Monocytes | performed at [facility];[address] | | LAB | | | | [address];[place] | | | | | | [address] | | | | + + + + + + | Absolute | 0.4Comment: Testing | 0 - 0.5 K/uL | EXTERNAL | | | Eosinophils | performed at [facility];[address] | | LAB | | | | [address];[place] | | | | | | [address] | | | | + + + + + + | Absolute | 0.0Comment: Testing | 0 - 0.1 K/uL | EXTERNAL | | | Basophils | performed at [facility];[address] | | LAB | | | | [address];[place] | | | | | | [address] | | | | + + [...] [place] | | | | | | [address] | | | | + + + + + + | K | 3.7Comment: Testing | 3.5 - 4.9 | EXTERNAL | | | | performed at [facility];[address] | mmol/L | LAB | | | | [address];[place] | | | | | | [address] | | | | + + + + + + | Cl | 96 (L)Comment: Testing | 99 - 109 mmol/L | EXTERNAL | | | | performed at [facility];[address] | | LAB | | | | [address];[place] | | | | | | [address] | | | | + + + + + + | CO2 | 35 (H)Comment: Testing | 23 - 32 mmol/L | EXTERNAL | | | | performed at [facility];[address] | | LAB | | | | [address];[place] | | | | | | [address] | | | | + + + + + + | Anion Gap | 11Comment: Testing | 5 - 20 mmol/L | EXTERNAL | | | | performed at [facility];[address] | | LAB | | | | [address];[place] | | | | | | [address] | | | | + + + + + + | Glucose, | 176 (H)Comment: Testing | 65 - 99 mg/dL | EXTERNAL | | | Fasting | performed at [facility];[address] | | LAB | | | | [address];[place] | | | | | | [address] | | | | + + + + + + | BUN | 12Comment: Testing | 8 - 25 mg/dL | EXTERNAL | | | | performed at [facility];[address] | | LAB | | | | [address];[place] | | | | | | [address] | | | | + + + + + + | Creatinine | 4.53 (H)Comment: Testing | 0.70 - 1.30 | EXTERNAL | | | | performed at [facility];[address] | mg/dL | LAB | | | | [address];[place] | | | | | | [address] | | | | + + + + + + | BUN/Creatin | 3Comment: Testing | | EXTERNAL | | | ine Ratio | performed at [facility];[address] | | LAB | | | | [address];[place] | | | | | | [address] | | | | + + + + + + | Calcium | 8.2 (L)Comment: Testing | 8.5 - 10.2 | EXTERNAL | | | | performed at [facility];[address] | mg/dL | LAB | | | | [address];[place] | | | | | | [address] | | | | + + + [...] | | at [facility];[address] [place] [address] | | | | | | [facility];[place] [address] | | | | + + + [...]
--- OUTSIDE RECORDS SUMMARY | ~2020-03-11 | XMS | Encounter Summary ---
Demographics + + + | Address | [address] | | | [place] [address] | + + + | Home Phone [...] Team Providers + +------+ + | Care Animated Cartoons Painter Name | Role | Phone | + +------+ + PCP | Unavailable | + +------+ + Encounter Details +--------+ + + + + | Date | Type | Department | Care Team | Description | +--------+ + + + + | 10/07/ | Hospital | [facility] | Roberto Mtz, | Pain; Staphylococcus | | 2018 - | Encounter | [facility] [address] | MD [address] | aureus bacteremia; | | | [address] | [place] [address] | Hypoalbuminemia; | | 10/19/ | | [place], [place] | [phone] | Hyperphosphatemia; | | 2017 | | [address] | | Hyperkalemia; | | | | [phone] | | Anasarca; Swelling | | | | | | of right upper | | | | | | extremity; | | | | | | Cellulitis of right | | | | | | upper extremity; End | | | | | | stage renal failure | | | | | | on dialysis (HCC); | | | | | | Superior [...] | | | | | | encounter; C | | | | | | syndrome [...] Summaries by Simone Roblero MD at 10/19/17 6197 Author: Simone Roblero MD Service: Hospitalist Author Type: Physician Filed: 10/19/17 1616 Date of Service: 10/19/17 0934 Status: Signed Binding Stitcher: Simone Roblero MD (Physician) Related Notes: Original Note by Simone Roblero MD (Physician) filed at 10/19/17 0940 [facility] Service: Hospitalist Discharge Summary Date of Admission: 10/07/2017 Date of Discharge: 10/19/2017 Discharge Provider: Simone Roblero MD Treatment Team: Consulting Physician: Obdulio Ellison MD Consulting Physician: Cosmo Soria MD Consulting Physician: Franklyn aMlin MD Consulting Physician: Jimenez Garnica MD PhD [...] discharged home with outpatient followup with 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 Prescriptions Prior to Admission Medication [...] LABALBU Recent Labs Lab 10/19/17 0740 10/18/17 0153 10/17/17 031 MG 2.3 2.3 2.1 No results for input(s): AMYLASE in the last 168 hours. No results for input(s): PHART, PO2ART, LZV5SXF, O4HBJVYN, BEART in the last 168 hours. Recent [...] 16 2017 1:33 AM Referring Provider Line: [phone] ID: [id number] Us Upper Extremity Venous Doppler [...] IV vancomycin Follow [place]: [place] [address] [place] [address] [facility] [address] [place] [id number] In 2 weeks Medication List START [...] These medications were sent to [facility] [facility] [place] - [address] [facility] [address] [facility] [place] [address] warfarin 4 MG tablet You can get [...] mouth | | 0 | 03/07/20 | 08/11/202 | | (ZYLOPRIM) 100 mg | daily [...] Management by Dashawn Jones RN at 10/19/17 8751 Author: Dashawn Jones RN Service: (none) Author Type: Registered Nurse Filed: 10/21/17 1406 Date of Service: 10/19/17 9604 Status: Signed Binding Stitcher: Dashawn Jones RN (Registered Nurse) Post Discharge Note: Received email from business continuity planner on the weekend that patient insi sted on leaving over the weekend and certain discharge services were not able to be finalize d due to the weekend. The CM on the weekend faxed the Vanco script to [facility] in [place]. I called and spoke wi rodrigo Orozco [...] provider know and they w ill either social media community manager his coumadin or refer him to [place] coumadin clinic for management . I gave them my number in case they need any more info. At this time everything is in place . onver quique Transaction, Provider Unknown - 10/19/2017 2:34 PM PDT Nurse Progress Note by Sharon Chapman RN at 10/19/17 8779 Author: Sharon Chapman RN Service: Nephrology Author Type: Registered Nurse Filed: 10/19/17 1436 Date of Service: 10/19/17 1434 Status: Signed Binding Stitcher: Sharon Chapman RN (Registered Nurse) Prim HARDIK [...] Date of Service: 10/19/17 1341 Status: Signed Binding Stitcher: Nikky Ball RN (Registered Nurse) Patient discharging [...] Management by Deidre Westfall RN at 10/19/17 0727 Author: Deidre Westfall RN Service: (none) Author Type: Registered Nurse Filed: 10/19/17 1239 Date of Service: 10/19/17 1139 Status: Addendum Binding Stitcher: Deidre Westfall RN (Registered Nurse) Related Notes: Original Note by Deider Westfall RN (Registered Nurse) filed at 10/19/17 123 7 Pt ready for d/c today 1) pt Needing IV Vanco abx with his HD. Tc to [facility] [phone], per their voi ce mail, they are closed today. Called the local [facility] and they confirmed [place] [facility] enter closed. Faxed IV vanco script to [facility] [phone] so they can f/u on Sat. Tc [...] Vanco script to take with him to [facility]. Tc to [facility] CM, left VM t o f/u with pt on Saturday regarin setting up vanco with his HD. 2) coumadin set up. Pt lives in [place], his PCP will have to make referral to [facility] coumadin clinic. PCP and coumadin clinic closed over wknd. Per previous CM notes, pt's PC P is Dr Lofton with [facility]. Top Knitter from [facility] is [facility] ([phone]). Tc to [facility] to f/u with pt on Saturday/Saturday for INR check. Pt will take his coumadin script to his PCP Mitzi Elsie Yang MD - 10/19/2017 8:47 AM PDT Progress Notes by Elsie Lerner MD at 10/19/17846 Author: Elsie Lerner MD Service: Infectious Disease Author Type: Physician Filed: 10/19/17 0939 Date of Service: 10/19/17846 Status: Signed Binding Stitcher: Elsie Lerner MD (Physician) [facility] Service: Infectious Disease Progress Note Hospital [...] times daily carvedilol 6.25 mg Oral BID denture cleanser 1 tablet Does not apply [...] 10/18/171046 Date of Service: 10/18/171046 Status: Signed Binding Stitcher: Zonia Clinton RPH (Pharmacist) Clinical Pharmacy Note: Vancomycin Day 12 Goal Trough: 10-20 mcg/mL Current dose: 500 mg IV following each hemodialysis Last random level: 20.46 mcg/mL 10/18 @ 0153 Serum creatinine: 8.3 mg/dL (H) 10/18/17 0153 Estimated creatinine clearance: 10.4 mL/min (A). Plan: Will send up supplemental dose of 500 mg IV for administration in the last hour of he modialysis today. Next random level ordered on 10/21 with am labs. Zonia Clinton, Pharm.D. alvor son, Douglas Woodard MD - 10/18/2017 6:54 AM PDT Progress Notes by DAMIÁN KuR3 at 10/18/17 0654 Author: KRISTEL Ku Service: Hospitalist Author Type: Resident-Y2 Filed: 10/18/172001 Date of Service: 10/18/17653 Status: Attested Addendum Binding Stitcher: Douglas A Danial, MD-R3 (Resident-Y3) Related Notes: Original Note by Douglas Barrow MD-R3 (Resident-Y3) filed at 10/18/17 1 553 Cosigner: Simone Roblero MD at 10/18/172119 Attestation signed by Simone Roblero MD at 10/18/172119 I have seen and examined the patient and agree with residents note. PROGRESS NOTE Pt: [place] AGE/SEX: 52 y.o. 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 He was recently admitted to [facility] the end of July 13 for presumed [...] receives dialysis Mondays, Wednesdays, and Fr . Receiving dialysis per nephrology - Appreciate [...] Note by Nicky Diaz RPH at 10/17/17 1237 Author: Nicky Diaz RPH Service: Pharmacy Author Type: Pharmacist Filed: 10/17/17 0760 Date of Service: 10/17/17 421 Status: Signed Binding Stitcher: Nicky Diaz RPH (Pharmacist) Vancomycin Monitoring: Patient [...] Notes by Dwain Lima MD at 10/17/17 6455 Author: Dwain Lima MD Service: Infectious Disease Author Type: Physician Filed: 10/17/17 3828 Date of Service: 10/17/17 6214 Status: Signed Binding Stitcher: Dwain Lima MD (Physician) [facility] Service: Infectious Diseases Progress Note Hospital Day: [...] Units Date/Time Blood culture, 1 of 2 [[id number]] Collected: 10/09/17 1710 Specimen: Blood from Blood Updated: 10/15/17 0645 Specimen Description BLOOD SPECIAL REQUESTS SITE NOT GIVEN CULTURE NO GROWTH 6 DAYS Blood culture, 2 of 2 [[id number]] Collected: 10/09/17 1740 Specimen: Blood from Blood [...] 500 mg after hemodialysis. Discussed with clin ical pharmacist today. Patient will likely need 500 mg after each hemodialysis session upon discharge. 8. Right shoulder pain, swelling, decreased range of motion. Negative MRI of the right shou lder. Maintain right upper extremity elevation. Discussed with Dr. Minro. Dr. Lerner will take over ID service on October 19. Dwain Cervantes MD, MPH Infectious Diseases 10/17/2017 onvers ion Transaction, Provider Unknown - 10/17/2017 10:45 AM PDT Pharmacy Note by Haider Bhatt RPH at 10/17/17 1045 Author: Haider Bhatt RPH Service: Pharmacy Author Type: Pharmacist Filed: 10/17/17 1045 Date of Service: 10/17/17 104 Status: Signed Binding Stitcher: Haider Bhatt RPH (Pharmacist) Vancomycin notes: Dialysis ordered MON - SAT - SAT No dose of Vancomycin today. alvor son, Douglas Woodard MD - 10/17/2017 7:08 AM PDT Progress Notes by Douglas Barrow MD-R3 at 10/17/17 0708 Author: KRISTEL Ku Service: Hospitalist Author Type: Resident-Y2 Filed: 10/17/171751 Date of Service: 10/17/17707 Status: Attested Binding Stitcher: DAMIÁN KuR3 (Resident-Y3) Cosigner: Omer Minor MD [...] AGE/SEX: 52 y.o. male ROOM: [facility]/423- PCP: ANDRY LOFTNO : 1965 PATIENT SUMMARY This is a 52-year-old male with an extensive and complex past medical history including end -stage renal disease secondary to diabetic nephropathy, diabetes mellitus type II, anemia of chronic renal failure, SVC stenosis, and hypertension who presents to the hospital with rig ht upper extremity pain and swelling. He was recently admitted to [facility] the end of July 13 for presumed [...] 81.6 kg (179 lb 14.3 oz) (10/17 111) Physical Exam Constitutional: Patient was sitting on [...] times daily carvedilol 6.25 mg Oral BID denture cleanser 1 tablet Does not apply [...] Management by Kalpana Triana RN at 10/16/17 1510 Author: Kalpana Triana RN Service: (none) Author Type: Registered Nurse Filed: 10/16/17 1510 Date of Service: 10/16/171509 Status: Signed Binding Stitcher: Kalpana Triana RN (Registered Nurse) Discharge planning- Patient still ok to return home with spouse when medically ready. CM to continue to follow clinical course for needs. KALPANA TRIANA RN Case Management [phone] onver quique Transaction, Provider Unknown - 10/16/2017 12:48 PM PDT Nurse Progress Note by Praveena Cordova RN at 10/16/17 1248 Author: Praveena Cordova RN Service: (none) Author Type: Registered Nurse Filed: 10/16/17 1249 Date of Service: 10/16/17 1248 Status: Signed Binding Stitcher: Praveena Cordova RN (Registered Nurse) Results for aPtt at 61, no change on heparin gtt at this time per protocol. ouglas Marrufo MD - 10/16/2017 6:46 AM PDT Progress Notes by Douglas Barrow MD-R3 at 10/16/17 0646 Author: DAMIÁN KuR3 Service: Hospitalist Author Type: Resident-Y2 Filed: 10/16/17 0941 Date of Service: 10/16/17 0646 Status: Attested Binding Stitcher: Douglas Barrow MD-R3 (Resident-Y3) Cosigner: Omer Minor MD at 1625 Attestation signed by Omer Minor MD at [...] Potter AGE/SEX: 52 y.o. 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 He was recently admitted to [facility] the end of July 13 for presumed abscess distal to the AV fistula. He returns again with worsening pain and e jay of the right upper extremity. Due to this he has missed dialysis for a week. He did hav e blood cultures drawn at his dialysis center which then grew gram-positive cocci. 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 Right Ear: [...] QTC Calculation (Bezet) 465 ms Calculated P [place] 27 degrees Calculated R [place] 11 degrees Calculated T [place] 84 degrees Diagnosis Sinus rhythm with 1st [...] the original. Pharmacy Note by Brenda Goins RP at 10/15/171712 Author: Brenda Goins RPH Service: Pharmacy Author Type: Pharmacist Filed: 10/15/171712 Date of Service: 10/15/171712 Status: Signed Binding Stitcher: Brenda Goins RPH (Pharmacist) Vanco Monitoring Random [...] (none) Author Type: Registered Dietitian Filed: 10/15/17 3887 Date of Service: 10/15/17 153 Status: Signed Binding Stitcher: Tosha Mclain RD (Registered Dietitian) 10/15/17 5132 Subjective Timepoint Admit Pt c/o Pt triggered for LOS. Pt admitted for AV fistula infection. Pt receiving HD at time of visit. 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 He was recently admitted to [facility] the end of July 13 for presumed [...] Daily heparin 50 units/mL 17 Units/kg/hr (10/15/17 0782) PRN: acetaminophen OR acetaminophen, albumin human, albuterol, [...] days Code status: Full Disposition: Inpatient Douglas Vance Barrow MD-R2 10/15/2017 1:42 PM Dwain Ahuja MD - 10/15/2017 11:19 AM PDT Progress Notes by Dwain Lima MD at 10/15/17 1119 Author: Dwain Lima MD Service: Infectious Disease Author Type: Physician Filed: 10/16/17 5826 Date of Service: 10/15/171118 Status: Signed Binding Stitcher: Dwain Lima MD (Physician) [facility] Service: Infectious Diseases Progress Note Hospital Day: [...] Units Date/Time Blood culture, 1 of 2 [[id number]] Collected: 10/09/17 1710 Specimen: Blood from Blood Updated: 10/15/1745 Specimen Description BLOOD SPECIAL REQUESTS SITE NOT GIVEN CULTURE NO GROWTH 6 DAYS Blood culture, 2 of 2 [[id number]] Collected: 10/09/17 1740 Specimen: Blood from Blood Updated: 10/15/1745 Specimen Description BLOOD SPECIAL REQUESTS SITE NOT GIVEN CULTURE NO GROWTH 6 DAYS Blood Culture Set 1 [[id number]] Collected: 10/07/17420 Specimen: Blood from Blood Updated: 10/13/17737 Specimen Description BLOOD SPECIAL REQUESTS L HAND CULTURE NO GROWTH 6 DAYS Blood culture, set 2 [[id number]] Collected: 10/07/17446 Specimen: Blood from Blood, peripheral draw Updated: [...] by DAMIÁN KuR3 at 10/15/17 0709 Author: DAMIÁN KuR3 Service: Hospitalist Author Type: Resident-Y2 Filed: 10/15/17 1017 Date of Service: 10/15/17 0709 Status: Attested Binding Stitcher: DAMIÁN KuR3 (Resident-Y3) Cosigner: Khanh Rangel MD at 10/20/17 0137 Attestation signed by Khanh Rangel MD at 10/20/17 9830 I didn't supervise on this date. Note This is The progress note for 10/14/2013, I forgot to sign it yesterday. PROGRESS NOTE Pt: Carol [place] AGE/SEX: 52 y.o. male ROOM: 423/423-1 PCP: NADRY LOFOTN : 1965 PATIENT SUMMARY This is a 52-year-old male with an extensive and complex past medical history including end -stage renal disease secondary to diabetic nephropathy, diabetes mellitus type II, anemia of chronic renal failure, SVC stenosis, and hypertension who presents to the hospital with rig ht upper extremity pain and swelling. He was recently admitted to [facility] the end of July 13 for presumed [...] Daily heparin 50 units/mL 15 Units/kg/hr (10/15/17 0418) PRN: acetaminophen OR acetaminophen, albumin human, albuterol, [...] acidosis has resolved, will receive dialysis per nephbelen haines. - Appreciate nephrology's management - AM CMP [...] 10/14/172136 Date of Service: 10/14/172132 Status: Signed Binding Stitcher: Grecia Rangel RN (Registered Nurse) Random vanco [...] 10/14/172132 Date of Service: 10/14/172132 Status: Signed Binding Stitcher: Chela Boyle RPH (Pharmacist) Vancomycin Monitoring Clinician Dosing: Pharmacy Dosing Recent Trough level: 20.39 mcg/mL Drawn: 10/14 Serum creatinine: 9.4 mg/dL (H) 10/14/17 0543 [...] 10/14/171120 Date of Service: 10/14/171120 Status: Signed Binding Stitcher: Reba Roldan RPH (Pharmacist) Vancomycin Monitoring Day [...] with RN. Order random level: 10/14/2017 at 199910/14/2017 11:07 AM Pharmacist: Reba Roldan onver quique Transaction, Provider Unknown - 10/14/2017 11:21 AM PDT Progress Notes by Reba Roldan RPH at 10/14/17 1121 Author: Reba Roldan RPH Service: Pharmacy Author Type: Pharmacist Filed: 10/14/17 1121 Date of Service: 10/14/171120 Status: Signed Binding Stitcher: Reba Roldan RPH (Pharmacist) Vancomycin Monitoring Day [...] per RN. Order random level: 10/14/2017 at 199910/14/2017 11:07 AM Pharmacist: Reba Roldan onver quique Transaction, Provider Unknown - 10/14/2017 11:07 AM PDT Case Management by Paty Bone RN at 10/14/17 1107 Author: Paty Bone RN Service: (none) Author Type: Registered Nurse Filed: 10/14/17 1503 Date of Service: 10/14/17 1107 Status: Addendum Binding Stitcher: Paty Bone RN (Registered Nurse) Related Notes: Original Note by Paty Bone RN (Registered Nurse) filed at 10/14/17 1108 CM attended AM rounds. Pt will d/c on coumadin when medically ready to d/c-lives in [place] on. PCP Dr. Lofton at [facility] PCP--CM will need to verify that he will follow INR l evels prior to d/c. Pt still on heparin gtt and they will bridge to coumadin. Pt may d/c on IV antbx that will likely be given with dialysis. CM to follow. DC plan home with . Meal voucher provided to by surgical nursing unit coordinator. Paty Bone onver quique Transaction, Provider Unknown - 10/14/2017 7:15 AM PDT Progress Notes by Grecia Rangel RN at 10/14/17 0715 Author: Grecia Rangel RN Service: (none) Author Type: Registered Nurse Filed: 10/14/17 0716 Date of Service: 10/14/17 0715 Status: Signed Binding Stitcher: Grecia Rangel RN (Registered Nurse) Notified Dr Barrow @ 0700 12 beats of v-tach, no new orders at this time, pt asymptomati c alvor sonDouglas MD - 10/14/2017 6:56 AM PDT Progress Notes by DAMIÁN KuR3 at 10/14/17 0656 Author: KRISTEL Ku Service: Hospitalist Author Type: Resident-Y2 Filed: 10/14/17 1351 Date of Service: 10/14/17 0656 Status: Attested Addendum Binding Stitcher: DAMIÁN KuR3 (Resident-Y3) Related Notes: Original Note by KRISTEL [...] Potter AGE/SEX: 52 y.o. male ROOM: [address] [place] [address] PCP: NADRY LOFTON : 1965 PATIENT SUMMARY This is a 52-year-old male with an extensive and complex past medical history including end -stage renal disease secondary to diabetic nephropathy, diabetes mellitus type II, anemia of chronic renal failure, SVC stenosis, and hypertension who presents to the hospital with rig ht upper extremity pain and swelling. He was recently admitted to [facility] the end of July 13 for presumed [...] F (37 C)] 97.8 F (36.6 C) (04/23 1107) BP: (93-115)/(50-68) 105/52 (10/14 1106) Heart Rate: [63-77] 71 (10/14 1106) Resp: [...] Douglas Barrow MD-R2 10/14/2017 1:49 PM onversion Transvance rubin, Provider Unknown - 10/13/2017 10:38 AM PDT Nurse Progress Note by Maude Toussaint RN at 10/13/17 1038 Author: Maude Toussaint RN Service: (none) Author Type: Registered Nurse Filed: 10/13/17 1043 Date of Service: 10/13/17 1038 Status: Signed Binding Stitcher: Maude Toussaint RN (Registered Nurse) PTT 64 at 0900 draw. Therapeutic so no change needed. Next draw in am. hriss Cartagena ARNP - 10/13/2017 7:08 AM PDTFormatting of this note might be different from t he original. Progress Notes by DARRELL Damon at 10/13/17707 Author: DARRELL Damon Service: Nephrology Author Type: Nurse Practitioner Filed: 10/13/17 1502 Date of Service: 10/13/17707 Status: Attested Binding Stitcher: DARRELL Damon (Nurse Practitioner) Cosigner: Jayy Christianson MD at 10/20 Attestation signed by Jayy Christianson MD at 10/20/172250 I have seen & personally examined the pt with Chriss RAMÍREZ; I have discussed the c ase with him. I agree with his findings & documentation. DARRELL Damon started the documentation. Note, exam, recs, plan, discussions were completed & approved by myself. Jayy Christianson MD Patient was seen and examined with attending Improvement Analyst: Dr. Christianson. 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 Morphine was stopped today. Epo with HD Hypoalbuminemia, protein supplements encouraged I discussed with the primary team the case at the time of this encounter. DARRELL Damon Douglas Bess MD - 10/13/2017 7:03 AM PDT Progress Notes by DAMIÁN KuR3 at 10/13/17 07 Author: KRISTEL Ku Service: Hospitalist Author Type: Resident-Y2 Filed: 10/13/17 4962 Date of Service: 10/13/17702 Status: Attested Binding Stitcher: DAMIÁN KuR3 (Resident-Y3) Cosigner: Khanh Rangel MD [...] AGE/SEX: 52 y.o. male ROOM: [facility]-1 PCP: ANDRY LOFTON : 1965 PATIENT SUMMARY This is a 52-year-old male with an extensive and complex past medical history including end -stage renal disease secondary to diabetic nephropathy, diabetes mellitus type II, anemia of chronic renal failure, SVC stenosis, and hypertension who presents to the hospital with rig ht upper extremity pain and swelling. He was recently admitted to [facility] the end of July 13 for presumed [...] radiology. He had interval improvement over the weeken d, however today reports that his arm [...] Notes by Khanh Rangel MD at 10/12/17 8895 Author: Khanh Rangel MD Service: Hospitalist Author Type: Physician Filed: 10/13/17 1500 Date of Service: 10/12/17 5247 Status: Signed Binding Stitcher: Khanh Rangel MD (Physician) [facility] Service: Hospitalist Progress Note Hospital Day: [...] 423 laying flat in bed. Shyanne at [facility]. No apparent distress. Conversive and appropriate to [...] EGFR 9* 6* 8* Recent Labs Lab 10/13/1730610/12/17 0535 10/11/17 0528 MG 2.1 2.2 2.2 Recent Labs Lab 10/13/17 0903 10/13/17 0307 10/12/176 10/09/17 0019 10/07/17 0339 APTT 64* 60* 45* [...] 07 2017 4:43AM Linda coley Provider Line: [phone] ID: [id number] Mri Shoulder Right Without Contrast [...] contribute to rotator cuff imp ingement Low xggjvp-ae-jkxle ratio renders is a low sensitivity examination. [...] COMPARIS ON STUDIES: CT arm 10/07/2017 PRIMARY WATCHER AUTOMAT LONG GOODS: Jimenez Garnica MD, PhD, RPVI OPERATIONS: 1. [...] Placement fluoroscopic images 018 and others PRIMARY WATCHER AUTOMAT LONG GOODS: Jimenez Garnica MD, PhD, RPVI OPERATIONS: 1. [...] sterilely prepped and draped in the usual [facility] ion about the left neck. Computer Drafter fluoroscopic image was obtained showing relatively unchanged position of the existing internal jugular catheter. An Amplatz wire was placed through the e xisting catheter into the inferior vena cava and the catheter was exchanged for a new 20 cm Mahurkar temporary dialysis catheter. Likely pre-existing catheter, the arterial port would not draw. Therefore, the catheter was removed and a 11 Bahraini sheath was placed. Venogram im aging the [...] the innominate confl uence. Follow-up venogram demonstrated yazidism of vigorous flow with some AP attenuation [...] the occlusion. Following i nterventions, there is yazidism of flow through the left innominate vein and superior dawson a cava with some degree of residual AP attenuation at the innominate confluence. The new cat heter tip is at the cavoatrial junction. 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 Replacement of temporary left internal [...] PROCEDURES: 1. Ultrasound-guided access of the left science intern al jugular vein. 2. Ultrasound and [...] microwire advanced. Over the microw rowdy a 5-Bahraini micro- sheath was placed. A single ultrasound [...] cava. The tract was serially dilated to 12.-Bahraini. A 20-c m Mahurkar 12-Bahraini temporary hemodialysis catheter was placed. The wire [...] COMPARISON ST UDIES: 10/07/2017 and 10/09/2017 PRIMARY WATCHER AUT[employer] GOODS: Jimenez Garnica MD, PhD, RPVI OPERATIONS: Limited [...] exchanged over a wire for a 6 Bahraini 35 cm sheath which was advanced to the leve l of the subclavian occlusion. Patient was heparinized. The occlusion was crossed with an an gled glide catheter and wire. Next multiple 10 mm angioplasty balloons were used for sequent ial and repeated prolonged dilation of the 14 mm innominate and [address] ents with yazidism of flow. The wire was left in place until the end of both procedures. Attention was then turned to replacement of a left internal jugular temporary dialysis karl ter to a tunneled dialysis catheter to be used until right arm swelling resolved for right a rm fistula use. A site was selected on the upper chest for subcutaneous tunnel creation. [facility] n was locally anesthetized with 1% [...] support wire and exchanged to an 816 Bahraini peel-away sheath. The wire was exchanged t [...] and inn ominate venous stents, there is yazidism of vigorous flow with no residual stenosis. [...] Status: Full Code Khanh Rangel MD 10/13/2017 ill, Kate Driscoll MD - 10/12/2017 10:56 AM PDT Progress Notes by Jimenez Garnica MD PhD at 10/12/17 1056 Author: Jimenez Garnica MD PhD Service: Interventional Radiology Author Type: Physician Filed: 10/12/17 1103 Date of Service: 10/12/17 1056 Status: Signed Binding Stitcher: Jimenez Garnica MD PhD (Physician) Interventional Radiology Progress Note Patient Name: Carol Potter Date of : 1965 Consulting Provider: Jimenez Garnica MD, PhD Interval History/Subjective: Carol Potter is a 52 y.o. male. Feeling better this am with resolution of arm pain and decre asing swelling of his right arm s/p right subclavian/innominate recanalization. Per procurement technician, left IJ tunneled dialysis catheter is [...] 07 2017 4:43AM Linda coley Provider Line: [phone] ID: [id number] X-ray Chest 1 View Result Date: 10/07/2017 This is a non-reportable procedure without a radiologist report and is used for image SoThreea ge only Mri Shoulder Right Without Contrast [...] contribute to rotator cuff imp ingement Low ljwyke-aw-ejqig ratio renders is a low sensitivity examination. [...] COMPARIS ON STUDIES: CT arm 10/07/2017 PRIMARY WATCHER [employer]: Jimenez Garnica MD, PhD, RPVI OPERATIONS: 1. [...] Placement fluoroscopic images 018 and others PRIMARY WATCHER [employer]: Jimenez Garnica MD, PhD, RPVI OPERATIONS: 1. [...] sterilely prepped and draped in the usual [facility] ion about the left neck. Computer Drafter fluoroscopic image was obtained showing relatively unchanged position of the existing internal jugular catheter. An Amplatz wire was placed through the e xisting catheter into the inferior vena cava and the catheter was exchanged for a new 20 cm Mahurkar temporary dialysis catheter. Likely pre-existing catheter, the arterial port would not draw. Therefore, the catheter was removed and a 11 Bahraini sheath was placed. Venogram im aging the [...] the innominate confl uence. Follow-up venogram demonstrated yazidism of vigorous flow with some AP attenuation [...] the occlusion. Following i nterventions, there is yazidism of flow through the left innominate vein and superior dawson a cava with some degree of residual AP attenuation at the innominate confluence. The new cat heter tip is at the cavoatrial junction. 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 Replacement of temporary left internal [...] PROCEDURES: 1. Ultrasound-guided access of the left science intern al jugular vein. 2. Ultrasound and [...] Under real-time ultrasound guidance, using micropuncture techn GOGETMi / ?.??, the left internal jugular vein was accessed and a microwire advanced. Over the microw rowdy a 5-Bahraini micro- sheath was placed. A single ultrasound [...] cava. The tract was serially dilated to 12.-Bahraini. A 20-c m Mahurkar 12-Bahraini temporary hemodialysis catheter was placed. The wire [...] COMPARISON ST UDIES: 10/07/2017 and 10/09/2017 PRIMARY WATCHER [employer]: Jimenez Garnica MD, PhD, RPVI OPERATIONS: Limited [...] exchanged over a wire for a 6 [place]i 35 cm sheath which was advanced to the leve l of the subclavian occlusion. Patient was heparinized. The occlusion was crossed with an an gled glide catheter and wire. Next multiple 10 mm angioplasty balloons were used for sequent ial and repeated prolonged dilation of the 14 mm innominate and [address] ents with yazidism of flow. The wire was left in place until the end of both procedures. Attention was then turned to replacement of a left internal jugular temporary dialysis karl ter to a tunneled dialysis catheter to be used until right arm swelling resolved for right a rm fistula use. A site was selected on the upper chest for subcutaneous tunnel creation. [facility] n was locally anesthetized with 1% [...] support wire and exchanged to an 816 [place]raini peel-away sheath. The wire was exchanged t [...] and inn ominate venous stents, there is yazidism of vigorous flow with no residual stenosis. [...] Progress Notes by Ambika Hanson RPH at 10/12/17 1464 Author: Ambika Hanson RPH Service: Pharmacy Author Type: Pharmacist Filed: 10/12/1794 Date of Service: 10/12/17956 Status: Signed Binding Stitcher: Ambika Hanson RPH (Pharmacist) Patient is current ly having HD. RN was able to obtain a stat Vancomycin level at 0917 ([facility] HD session)=24.1 The level is elevated therefore [...] Notes by Mary Feldman RN at 10/11/17 6271 Author: Mary Feldman RN Service: Nephrology Author Type: Registered Nurse Filed: 10/11/17 5124 Date of Service: 10/11/171606 Status: Signed Binding Stitcher: Mary Feldman RN (Registered Nurse) Called by primary RN d/t new Left HD CVC oozing blood. Dressing removed, biopatch saturated with blood and moderate amount of dried blood on skin. No active bleeding noted. Site clean ed per protocol and dressed with biopatch and tegaderm. Dr. Christianson notified. Mitch Feldman employment agency manager onver quique Transaction, Provider Unknown - 10/11/2017 2:52 PM PDT Case Management by Kalpana Triana RN at 10/11/17 8179 Author: Kalpana Triana RN Service: (none) Author Type: Registered Nurse Filed: 10/11/17 0421 Date of Service: 10/11/171451 Status: Signed Binding Stitcher: Kalpana Triana RN (Registered Nurse) Discharge planning- Patient will most likely discharge back home with spouse when medically ready. His spouse with transport. She has been staying with him in the room and receives on e meal voucher per day. Unknown discharge date at this time. KALPANA TRIANA RN Case Management [phone] onver quique Transaction, Provider Unknown - 10/11/2017 1:45 PM PDT Pharmacy Note by Trinidad Coon RPH at 10/11/17 1345 Author: Trinidad Coon RPH Service: Pharmacy Author Type: Pharmacist Filed: 10/11/17 1345 Date of Service: 10/11/17 1345 Status: Signed Binding Stitcher: Trinidad Coon RPH (Pharmacist) Vancomycin monitoring. Pt is due to receive dialysis today, not yet started. Vancomycin has been given 3 out of last 4 days. We will check a random level 4 hours after the end of dialysis today to make sure medicatio n is not accumulating. Trinidad Coon alvor sonDouglas MD - 10/11/2017 6:58 AM PDT Progress Notes by Douglas Barrow MD-R3 at 10/11/17 0658 Author: Douglas Barrow MD-R3 Service: Hospitalist Author Type: Resident-Y2 Filed: 10/11/17 1616 Date of Service: 10/11/17 0658 Status: Attested Binding Stitcher: Douglas Barrow MD-R3 (Resident-Y3) Cosigner: Khanh Rangel MD at 10/14/17 1231 Attestation signed by Khanh Rangel MD at 10/14/17 1231 Encountered and examined patient in room 423 with Shyanne at bedside. Rounding with [facility] jamelcy team. I agree with Dr. Barrow's progress [...] Potter AGE/SEX: 52 y.o. 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 He was recently admitted to [facility] the end of July 13 for presumed [...] 10/10/171925 Date of Service: 10/10/171922 Status: Signed Binding Stitcher: Dwain Lima MD (Physician) [facility] Service: Infectious Diseases Progress Note Hospital Day: LOS: 3 days Post-Op Day: * No surgery found * CC: Follow-up of MRSA bacteremia SUBJECTIVE/OVERNIGHT EVENTS Patient continues to report right upper extremity pain, swelling. He reports no clinical improvement. He has been scheduled for an AV fistulogram and possible intervention for his thrombosis to thomas. Remains afebrile, without leukocytosis. REVIEW OF SYSTEMS [...] Immuniza tion sevelamer 800 mg Oral TID sodium bicarbonate [...] Value Units Date/Time Anaerobic Culture W/Gram Stain [[id number]] Collected: 10/07/17 1611 Specimen: Abscess Updated: 10/10/17 0856 Specimen Description ABSCESS GRAM STAIN 1+ GRAM STAIN WBC'S SEEN GRAM STAIN NO ORGANISMS SEEN CULTURE NO GROWTH 3 DAYS Blood culture, 2 of 2 [[id number]] Collected: 10/09/17 1740 Specimen: Blood from Blood Updated: 10/09/17 194 Blood culture, 1 of 2 [[id number]] Collected: 10/09/17 1710 Specimen: Blood from Blood Updated: 10/09/171945 Blood Culture Set 1 [[id number]] Collected: 10/07/17 0421 Specimen: Blood from Blood Updated: 10/09/17613 Specimen Description BLOOD SPECIAL REQUESTS L HAND CULTURE NO GROWTH 2 DAYS Blood culture, set 2 [[id number]] Collected: 10/07/17 0447 Specimen: Blood from Blood, [...] Service: Pharmacy Author Type: Pharmacist Filed: 10/10/17 1607 Date of Service: 10/10/17 160 Status: Signed Binding Stitcher: Haider Bhatt RPH (Pharmacist) Vancomycin notes: Patient receiving dialysis today. Vancomycin dose sent at approx 1600 to be administered du ring last hour of HD. Cosmo Lang MD - 10/10/2017 1:43 PM PDTFormatting of this note might be different from the or iginal. Progress Notes by Cosmo Soria MD at 10/10/17 1346 Author: Cosmo Soria MD Service: Nephrology Author Type: Physician Filed: 10/10/17 9392 Date of Service: 10/10/17 1343 Status: Signed Binding Stitcher: Cosmo Soria MD (Physician) [id number]/[phone] LOS: 3 [...] he would be able to return to [facility] for Saturday for dialysis. He was not clinically uremic, hyperkalemic, acido tic or uremic at that time. He however returned to emergency room at [facility] with worsening of the swell ing. He was transferred back to [facility] He was afebrile and otherwise hemodynamically [...] He is dialyzed Saturday an saturday [facility] using right UE AVF (Dr. [...] he had a complicated st ay at [facility] including development of pericardial effusion s/p attempt [...] Place tunneled CVC once bacteremia has resolved. Export Freight Clerk evaluation for low K diet. I discussed [...] was completed later after rounds. Dictation software, [employer], was used which may contain error for [...] assume nephrology service as of 8 pm akira. Eliseo Mittal PA-C - 10/10/2017 9:24 AM PDT Progress Notes by Eliseo Cat PA-C at 10/10/17923 Author: Eliseo Cat PA-C Service: Interventional Radiology Author Type: Physician A ssistant - Certified Filed: 10/10/17949 Date of Service: 10/10/17923 Status: Addendum Binding Stitcher: Eliseo Cat PA-C (Physician Orchestra Teacher - Certified) Related Notes: Original Note by Eliseo Cat PA-C (Physician Orchestra Teacher - Certified) fi led at 10/10/17939 Interventional [...] MD on Oct 07 2017 4:43AM Re sridharshanae Provider Line: [phone] ID: [id number] X-ray Chest 1 View Result Date: 10/07/2017 This is a non-reportable procedure without a radiologist report and is used for image SoThreea HealthSynch only Mri Shoulder Right Without Contrast Result [...] contribute to rotator cuff imp ingement Low yidpkb-yi-fuuda ratio renders is a low sensitivity examination. [...] COMPARIS ON STUDIES: CT arm 10/07/2017 PRIMARY WATCHER AUTOMAT LONG GOODS: Jimenez Garnica MD, PhD, [facility] OPERATIONS: 1. Right arm ultrasound and fluoroscopic [...] Placement fluoroscopic images 018 and others PRIMARY WATCHER AUT[employer] GOODS: Jimenez Garnica MD, PhD, [facility] OPERATIONS: 1. Replacement of temporary left [...] sterilely prepped and draped in the usual [facility] ion about the left neck. Computer Drafter fluoroscopic image was obtained showing relatively unchanged position of the existing internal jugular catheter. An Amplatz wire was placed through the e xisting catheter into the inferior vena cava and the catheter was exchanged for a new 20 cm Mahurkar temporary dialysis catheter. Likely pre-existing catheter, the arterial port would not draw. Therefore, the catheter was removed and a 11 [place]raini sheath was placed. Venogram im aging the [...] the innominate confl uence. Follow-up venogram demonstrated yazidism of vigorous flow with some AP attenuation [...] the occlusion. Following i nterventions, there is yazidism of flow through the left innominate vein and superior dawson a cava with some degree of residual AP attenuation at the innominate confluence. The new cat heter tip is at the cavoatrial junction. 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 Replacement of temporary left internal [...] PROCEDURES: 1. Ultrasound-guided access of the left science intern al jugular vein. 2. Ultrasound and [...] microwire advanced. Over the microw rowdy a 5-Bahraini micro- sheath was placed. A single ultrasound [...] cava. The tract was serially dilated to 12.-Bahraini. A 20-c m Mahurkar 12-Bahraini temporary hemodialysis catheter was placed. The wire [...] Date of Service: 10/10/17 0643 Status: Attested Binding Stitcher: DAMIÁN KuR3 (Resident-Y3) Cosigner: Khanh Rangel MD [...] Potter AGE/SEX: 52 y.o. 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 He was recently admitted to [facility] the end of July 13 for presumed [...] C) (10/10 1128) BP: (91-123)/(51-63) 118/58 (10/10 1129) Heart Rate: [70-78] 76 (10/10 1128) Resp: [18-20] 20 (10/10 1128) SpO2: [96 %-100 %] 97 % (10/10 1128) Weight: [87 kg (191 lb 12.8 oz)-88.3 kg (194 lb 10.7 oz)] 88.3 kg (194 lb 10.7 oz) (10/10 025) Physical Exam Constitutional: He is oriented to [...] Instructions heparin 50 units/mL 15 Units/kg/hr (10/10/17 0838) PRN: acetaminophen OR acetaminophen, albumin human, albuterol, [...] Notes by Dwain Lima MD at 10/09/17 0439 Author: Dwain Lima MD Service: Infectious Disease Author Type: Physician Filed: 10/09/17 1731 Date of Service: 10/09/17 172 Status: Signed Binding Stitcher: Dwain Lima MD (Physician) [facility] Service: Infectious Diseases Progress Note Hospital Day: [...] Value Units Date/Time Anaerobic Culture W/Gram Stain [[id number]] Collected: 10/07/17 1611 Specimen: Abscess Updated: 10/09/17 1022 Specimen Description ABSCESS GRAM STAIN 1+ GRAM STAIN WBC'S SEEN GRAM STAIN NO ORGANISMS SEEN CULTURE NO GROWTH 2 DAYS Blood Culture Set 1 [[id number]] Collected: 10/07/17 0421 Specimen: Blood from Blood Updated: 10/09/17 0614 Specimen Description BLOOD SPECIAL REQUESTS L HAND CULTURE NO GROWTH 2 DAYS Blood culture, set 2 [[id number]] Collected: 10/07/17 0447 Specimen: Blood from Blood, peripheral draw Updated: 10/09/17 0614 Specimen Description BLOOD, PERIPHERAL DRAW SPECIAL REQUESTS LWRIST CULTURE NO GROWTH 2 DAYS MRSA by PCR [[id number]] (Abnormal) Collected: 10/07/17 0650 Specimen: Nasopharyngeal from [...] Service: Nephrology Author Type: Physician Filed: 10/10/17 2056 Date of Service: 10/09/171699 Status: Addendum Binding Stitcher: Cosmo Soria MD (Physician) Related Notes: Original [...] ci yesterday when I was called by [facility]. Today Dr. Christianson indicated growth was Staph aur eus. He received vancomycin and ceftazidime on Saturday and was discharged. I personally discuss ed the case telephonically with Dr. Ellison and ED at that time. He was felt to have a working AV fistula and was felt that he would be able to return to [facility] for Saturday for dialysis. He was not clinically uremic, hyperkalemic, acido tic or uremic at that time. He however returned to emergency room at [facility] with worsening of the swell ing. He was transferred back to [facility] He was afebrile and otherwise hemodynamically [...] is dialyzed Saturday an d Saturday at [facility] using right UE AVF (Dr. [...] he had a complicated st ay at [facility] including development of pericardial effusion s/p attempt [...] Place tunneled CVC once bacteremia has resolved. Export Freight Clerk evaluation for low K diet. Continue vancomycin [...] was completed later after rounds. Dictation software, [employer], was used which may contain error for [...] Pharmacist Filed: 10/09/17 1416 Date of Service: 10/09/171415 Status: Signed Binding Stitcher: Yasmin Jordan RPH (Pharmacist) Vanco 750mg IVPB sent for admin after HD today Pharmacist; YASMIN JORDAN 10/09/2017 2:16 PM onver quique [place], Provider Unknown - 10/09/2017 1:11 PM PDT Case Management by Kalpana Triana RN at 10/09/17 1311 Author: Kalpana Triana RN Service: (none) Author Type: Registered Nurse Filed: 10/09/17 1314 Date of Service: 10/09/171310 Status: Signed Binding Stitcher: Kalpana Triana RN (Registered Nurse) CM received call from patient's Top Knitter from [facility] ([phone]). She st ated that she is available to help with any discharge needs. KALPANA TRIANA RN Case Management [phone] alvor son, Douglas Woodard MD - 10/09/2017 7:24 AM PDT Progress Notes by Douglas Barrow MD-R3 at 10/09/17723 Author: DAMIÁN KuR3 Service: Hospitalist Author Type: Resident-Y2 Filed: 10/09/17 8425 Date of Service: 10/09/17723 Status: Attested Binding Stitcher: DAMIÁN KuR3 (Resident-Y3) Cosigner: Khanh Rangel MD [...] AGE/SEX: 52 y.o. male ROOM: [facility] PCP: ANDRY LOFTON : 1965 PATIENT SUMMARY This is a 52-year-old male with an extensive and complex past medical history including end -stage renal disease secondary to diabetic nephropathy, diabetes mellitus type II, anemia of chronic renal failure, SVC stenosis, and hypertension who presents to the hospital with rig ht upper extremity pain and swelling. He was recently admitted to [facility] the end of July 13 for presumed [...] not heard back from to be a [place] [facility] regarding the audelia gonzales - Infectious disease is on board, appreciate [...] 10/09/17632 Date of Service: 10/09/17629 Status: Signed Binding Stitcher: Steve Haile RN (Registered Nurse) Patient BG [...] 10/08/172229 Date of Service: 10/08/172215 Status: Signed Binding Stitcher: Eliseo Cat PA-C (Physician Orchestra Teacher - Certified) Interventional Radiology Progress Note Patient [...] 07 2017 4:43AM Re vianca Provider Line: [phone] ID: [id number] X-ray Chest 1 View Result [...] contribute to rotator cuff imp ingement Low tumxlw-ye-ogzsz ratio renders is a low sensitivity examination. [...] COMPARIS ON STUDIES: CT arm 10/07/2017 PRIMARY WATCHER AUTOM[employer] GOODS: Jimenez Garnica MD, PhD, RPVI OPERATIONS: 1. [...] PROCEDURES: 1. Ultrasound-guided access of the left science intern al jugular vein. 2. Ultrasound and [...] microwire advanced. Over the microw rowdy a 5-Bahraini micro- sheath was placed. A single ultrasound [...] cava. The tract was serially dilated to 12.-Bahraini. A 20-c m Mahurkar 12-Bahraini temporary hemodialysis catheter was placed. The wire [...] Notes by Dwain Lima MD at 10/08/17 4943 Author: Dwain Lima MD Service: Infectious Disease Author Type: Physician Filed: 10/09/17 9626 Date of Service: 10/08/171450 Status: Signed Binding Stitcher: Dwain Lima MD (Physician) [facility] Service: Infectious Diseases Progress Note Hospital Day: [...] Value Units Date/Time Anaerobic Culture W/Gram Stain [[id number]] Collected: 10/07/17 1611 Specimen: Abscess Updated: 10/07/172231 Specimen Description ABSCESS GRAM STAIN 1+ GRAM STAIN WBC'S SEEN GRAM STAIN NO ORGANISMS SEEN CULTURE PENDING MRSA by PCR [[id number]] (Abnormal) Collected: 10/07/17 0650 Specimen: Nasopharyngeal from Nares(Nose) Updated: 10/07/17 0818 SOURCE NARES(NOSE) MRSA PCR POSITIVE for MRSA by PCR (A) Blood Culture Set 1 [[id number]] Collected: 10/07/17 0421 Specimen: Blood from Blood Updated: 10/07/1756 Blood culture, set 2 [[id number]] Collected: 10/07/17 0447 Specimen: Blood from Blood, peripheral draw Updated: 10/07/17655 IMAGING Reviewed images of : No new [...] bacteremia. Will obtain results from [facility] , they repeat cultures here [...] note might be different from the betina forman. Progress Notes by Cosmo Soria MD at 10/08/17 6768 Author: Cosmo Soria MD Service: Nephrology Author Type: Physician Filed: 10/10/17 1445 Date of Service: 10/08/17 9788 Status: Addendum Binding Stitcher: Cosmo Soria MD (Physician) Related Notes: Original [...] he would be able to return to [facility] for Saturday for dialysis. He was not clinically uremic, hyperkalemic, acido tic or uremic at that time. He however returned to emergency room at [facility] with worsening of the swell ing. He was transferred back to [facility] He was afebrile and otherwise hemodynamically [...] and nephrology consultation was requested by Dr. tMz for end-stage kidn ey disease management including [...] is dialyzed Saturday an d Saturday at [facility] using right UE AVF (Dr. [...] he had a complicated st ay at [facility] including development of pericardial effusion s/p attempt at angioplasty for cent ral venous stenosis (done for poorly functioning right UE AVF). He had a pericardial drain p ri in which was removed prior to discharged. [...] with Dr. Garnica and subsequen t dialysis. Export Freight Clerk evaluation for low K diet. Continue vancomycin [...] was completed later after rounds. Dictation software, [employer], was used which may contain error for [...] Service: Hospitalist Author Type: Resident-Y2 Filed: 10/08/17 1626 Date of Service: 10/08/17 0655 Status: Attested Addendum Binding Stitcher: KRISTEL Ku (Resident-Y3) Related Notes: Original Note [...] kidney disease: Discussed in person with Dr. Yang briefly today. Right upper extremity cellulitis; Continue [...] and swelling. He was recently admitted to [facility] the end of July 13 for presumed [...] (10/08 1330) Heart Rate: [74-90] 76 (10/08 1330) Resp: [16-20] 20 (10/08 1330) SpO2: [95 %-100 %] 98 % (10/08 1330) Weight: [84.2 kg (185 lb 10 oz)] [...] QTC Calculation (Bezet) 474 ms Calculated P [place] 49 degrees Calculated R [place] 28 degrees Calculated T [place] 80 degrees Diagnosis Normal sinus rhythm Low [...] at the time. *Addendum, attempted to contact [facility] ([phone]) to obtain culture results, however was unable to talk to anybody. I did leave a voice message. - Infectious disease is on board, appreciate recommendations - Continue Vancomycin and Cefepime - AM CBC - F/U Culture reports ESRD w/Metabolic Acidosis: Patient has end-stage renal disease and receives dialysis Saturday, Wednesdays, and Fridays. However, given the infection distal to the AV fistula, he has no t received dialysis over week. A temporary dialysis catheter [facility] and the patient has received dialysis [...] Nurse Filed: 10/07/17 1541 Date of Service: 10/07/171526 Status: Signed Binding Stitcher: Mihir Yo RN (Registered Nurse) 10/07/17 1525 Discharge Planning Evaluation Admitting Diagnosis AV Fistula Abscess Readmission No Living Arrangements Spouse/significant other Support Systems Spouse/significant other Type of Residence Private residence House type House-1 story Steps to enter 2 Bathrooms on 1st Floor 1-Full Independent with ADL's Yes Independent with Mobility Other (comment) (uses brokerage transportation services in [place]) Home Care Services No Caregiver after Discharge No Mental Status Oriented Prior functional status modified independent Anticipated Discharge Plan Post Acute Care Needs (TBD) Resources Financial concerns No Transportation issues No Prescription Plan Yes [facility] of [facility] after hours Anticipated Disposition Facility Type Home Medicare Important Message (ELEAZAR) Not applicable Met with pt and discussed discharge planning, Pt is a 52 y.o., male who lives with his wif e in their one level private residence. Pt attends dialysis M-W-F in [place] and has been known to be noncompliant and to use his fistula for unprescribed drug administration. Pt u ses the Medicaid transportation brokerage for appointments. Patient's PCP is: Andry Lofton MD, [facility] Patient's insurance: Medicare, Medicaid Coverage concerns: no Medication coverage/concerns: no Rx Bedside Delivery: YES Community resources utilized / needed: Dialysis Assistance in transportation: [facility] Transportation Identification of any specific education / training: no Barriers to Discharge / Alternative housing needed: no Anticipated DCP: home Shyanne Potter, , Klaudia, Community Health Nurse at [facility], MIHIR YO onver quique Castillo, Provider Unknown - 10/07/2017 3:17 PM PDT Case Management by Mihir Yo RN at 10/07/17 1517 Author: Mihir Yo RN Service: (none) Author Type: Registered Nurse Filed: 10/07/17 1525 Date of Service: 10/07/17 1517 Status: Addendum Binding Stitcher: Mihir Yo RN (Registered Nurse) Related Notes: [...] Date of Service: 10/07/17 1300 Status: Signed Binding Stitcher: Brooklynn Juan RN (Registered Nurse) Returned patient [...] Date of Service: 10/07/17 1040 Status: Signed Binding Stitcher: Brooklynn Juan RN (Registered Nurse) Went to [...] RPH Service: Pharmacy Author Type: Pharmacist Filed: 10/07/177 Date of Service: 10/07/171016 Status: Signed Binding Stitcher: Haider Bhatt RPH (Pharmacist) Renal Dosing Monitoring: [...] RPH Service: Pharmacy Author Type: Pharmacist Filed: 10/07/1751 Date of Service: 10/07/17950 Status: Signed Binding Stitcher: Haider Bhatt RPH (Pharmacist) Vancomycin notes: Right [...] Progress Notes by Rebeca Hadley RN at 10/07/1738 Author: Rebeca Hadley RN Service: (none) Author Type: Registered Nurse Filed: 10/07/17 0739 Date of Service: 10/07/17737 Status: Signed Binding Stitcher: Rebeca Hadley RN (Registered Nurse) Please order and place patient in contact precautions for MRSA. Thank you! Rebeca Infectio n Prevention docume nted in this encounter H&P Notes Roberto Mtz MD - 10/07/2017 5:09 AM PDTFormatting of this note might be different fro m the original. H&P by Roberto Mtz MD at 10/07/17 0509 Author: Roberto Mtz MD Service: Hospitalist Author Type: Physician Filed: 10/07/17 0634 Date of Service: 10/07/17 050 Status: Signed Binding Stitcher: Roberto Mtz MD (Physician) [facility] Service: Hospitalist Admission History & Physical [...] continue abx with dialysis. He went to [facility] today due to increasing swelling in [...] 07/06/2012 Chronic obstructive asthma with exacerbation ([facility]) 10/27/2013 Chronic systolic heart failure ([facility]) 09/10/2016 Diabetes mellitus type I ([facility]) Dialysis patient ([facility]) DVT (deep venous thrombosis) ([facility]) x3 GI bleed 04/30/2012 from coumadin Gout Hyperkalemia 11/09/2013 Hyperlipidemia Hyperphosphatemia 05/24/2012 Hypertension Hyponatremia 09/08/2016 Knee pain, right 07/06/2012 MSSA (methicillin susceptible Staphylococcus aureus) infection 04/11/2012 Neuromuscular disorder ([facility]) neuropathy 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[facility]) 05/01/2012 Rash and nonspecific skin eruption 04/03/2012 SOB (shortness of breath) 10/27/2013 Thyroid disease Walker as ambulation aid PSHx: Past Surgical History Procedure Laterality Date AV FISTULA PLACEMENT Right 02/09/2014 Procedure: AV FISTULA; Surgeon: Oskar Meyer MD; Location: [facility] MAIN OR; Service: Vascula r; Laterality: Right; AV FISTULA PLACEMENT Left 05/06/2012 Procedure: AV FISTULA; Surgeon: Oskar Meyer MD; Location: [facility] MAIN OR; Service: Vascula r; Laterality: Left; Left arm possible right AV FISTULA REPAIR Left 07/11/2012 Procedure: AV FISTULA - GRAFT REPAIR/REVISION; Surgeon: Oskar Meyer MD; Location: [facility] IN OR; Service: Vascular; Laterality: Left; Superficialization of brachiobasilic fistula and right IJ perm cath insertion CATHETER REMOVAL Right 07/07/2012 Procedure: DIALYSIS CATHETER - REMOVAL; Surgeon: Oskar Meyer MD; Location: [facility] BEDSIDE P ROCEDURE; Service: General; Laterality: Right; perm cath COLONOSCOPY WITH EGD N/A 05/01/2012 Procedure: COLONOSCOPY W/ EGD; Surgeon: John Singleton MD; Location: [facility] ENDOSCOPY; Ser vice: Gastroenterology; Laterality: N/A; DIALYSIS FISTULA CREATION Left 07/11/2012 Procedure: DIALYSIS CATHETER - INSERTION; Surgeon: Oskar Meyer MD; Location: [facility] MAIN OR ; Service: Vascular; Laterality: Left; removed dialysis catheter from left neck and place d new on in left chest, attempted in right neck but unable to place DIALYSIS FISTULA CREATION Left 07/07/2012 Procedure: DIALYSIS CATHETER - INSERTION; Surgeon: Oskar Meyer MD; Location: [facility] BEDSIDE PROCEDURE; Service: General; Laterality: Left; temporary dialysis catheter KNEE ARTHROSCOPY Right 07/07/2012 Procedure: KNEE - ARTHROSCOPY; Surgeon: Favio Raza MD; Location: [facility] MAIN OR; Se rvice: Orthopedics; Laterality: Right; After 1530 SUPERFICIALIZATION OF AV FISTULA Right 03/30/2014 Procedure: AV FISTULA - SUPERFICIALIZATION; Surgeon: Oskar Meyer MD; Location: [facility] MAIN OR; Service: Vascular; Laterality: Right; UNLISTED [...] KIDS. CURRENTLY UNEMPLOYED, BEFOR E WORKED AT [employer] IN [place]. Quit METHAMPHETAMINES PER PATIENT after t he [...] l for patient. Data: Recent Labs Lab 10/07/17 0339 10/05/17 1402 WBC 8.72 7.23 HGB 11.2* 11.1* HCT 33.9* 34.5* PLT 283 245 NEUTOPHILPCT 71.99 72.19 MONOPCT 7.96 7.16 Recent Labs Lab 10/07/17 0339 10/05/17 1402 NA 130* 133* K 5.7* 4.8 [...] hours. No results for input(s): PHART, PO2ART, KND1XQU, S9KFBNSN, BEART in the last 168 hours. Recent Labs Lab 10/07/17 03310/05/17 1402 APTT 33* 24 INR 1.0 1.0 No results for input(s): TSH, T3FREE, FREET4 in the last 168 hours. Recent Labs Lab 10/07/1733810/05/17 1402 CKTOTAL 163 173 TROPONINI <0.020 <0.020 CKMBINDEX 4.7 4.7 Results Procedure Component Value Units Date/Time Blood culture, set 2 [[id number]] Collected: 10/07/17446 Specimen: Blood from Blood Updated: 10/07/17 050 Blood Culture Set 1 [[id number]] Collected: 10/07/17 0421 Specimen: Blood from Blood Updated: 10/07/17 0436 IMAGING: Cta Upper Extremity Right With Iv [...] MD on Oct 07 2017 4:43AM [facility] Provider Line: [phone] ID: [id number] Us Upper Extremity Venous Right [...] Mtz MD 10/07/2017 5:09 AM Dictation software, [employer], may have been used which may contain error for similar sounding words even after review. Personal communication requested for any clarification. Portions of this chart may have been copied from previous notes for continuity of care. documented in this e ncounter Procedure Notes Fela Mayberry MD - 10/18/2017 4:24 PM PDT Procedures by Fela Mayberry MD at 10/18/17 0702 Author: Fela Mayberry MD Service: Nephrology Author Type: Physician Filed: 10/18/17 2118 Date of Service: 10/18/171623 Status: Signed Binding Stitcher: Fela Mayberry MD (Physician) The patient says [...] of this encounter. Fela Mayberry MD FACP atarinaChriss swansonMICHAEL PAYROLL AND BENEFITS ANALYST - 10/17/2017 9:02 AM PDT Procedures by DARRELL Damon at 10/17/17901 Author: DARRELL Damon Service: Nephrology Author Type: Nurse Practitioner Filed: 10/17/17 1913 Date of Service: 10/17/17901 Status: Attested Binding Stitcher: DARRELL Damon (Nurse Practitioner) Cosigner: Jayy Christianson MD at 10/20 Procedure Orders: 1. PUF (Ultrafiltration) [[id number]] ordered by Jayy Christianson MD at 10/17/17 [...] Patient was seen and examined with attending Improvement Analyst: Dr. Christianson. The patient says that he [...] the time of this encounter. DARRELL Damon almbHumza swansonDARRELL - 10/16/2017 2:55 PM PDTFormatting of this note might be different from the origina l. Procedures by DARRELL Damon at 10/16/17 2399 Author: DARRELL Damon Service: Nephrology Author Type: Nurse Practitioner Filed: 10/16/17 3487 Date of Service: 10/16/17 0802 Status: Attested Binding Stitcher: DARRELL Damon (Nurse Practitioner) Cosigner: Jayy Christianson MD at 10/20 3458 Procedure Orders: 1. Hemodialysis [[id number]] ordered by Jayy Christianson MD at 10/16/17 4697 Attestation signed by Jayy Christianson MD at 10/20/17 9496 I have seen &personally examined the pt [...] Patient was seen and examined with attending Improvement Analyst: Dr. Christianson. The patient says that he [...] Nephrology Author Type: Nurse Practitioner Filed: 10/15/17 4814 Date of Service: 10/15/17718 Status: Attested Binding Stitcher: DARRELL Damon (Nurse Practitioner) Cosigner: Jayy Christianson MD at 10/20 0206 Procedure Orders: 1. PUF (Ultrafiltration) [[id number]] ordered by Jayy Christianson MD at 10/15/17 1353 Attestation signed by Jayy Christianson MD at 10/20/17 7749 I have seen &personally examined the pt [...] Patient was seen and examined with attending Improvement Analyst: Dr. Christianson. The patient says that he [...] encounter. DARRELL Damon Humza Tucker ARNP - 10/14/2017 3:53 PM PDTFormatting of this note might be different from the malik garza Procedures by DARRELL Damon at 10/14/17 4948 Author: DARRELL Damon Service: Nephrology Author Type: Nurse Practitioner Filed: 10/14/17 1712 Date of Service: 10/14/17 1553 Status: Attested Binding Stitcher: DARRELL Damon (Nurse Practitioner) Cosigner: Jayy Christianson MD at 10/20 Procedure Orders: 1. Hemodialysis [[id number]] ordered by Jayy Christianson MD at 10/14/17 0914 Attestation signed by Jayy Christianson MD at 10/20/172252 I have seen & personally examined the [...] Patient was seen and examined with attending Improvement Analyst: Dr. Christianson. The patient says that he [...] zbigniewa l. Procedures by DARRELL Damon at 10/12/17 0904 Author: DARRELL Damon Service: Nephrology Author Type: Nurse Practitioner Filed: 10/12/17 0191 Date of Service: 10/12/17 0904 Status: Attested Binding Stitcher: DARRELL Damon (Nurse Practitioner) Cosigner: Jayy Christianson MD at 10/20 Procedure Orders: 1. Hemodialysis [[id number]] ordered by Cosmo Soria MD at 10/10/17 1429 Procedures: 1. HEMODIALYSIS INPATIENT [DIA12 (Custom)] Attestation signed by Jayy Christianson MD at 10/20/172248 I have seen & personally examined the pt with Chriss RAMÍREZ; I have discussed the c ase with him. I agree with his findings & documentation. DARRELL Damon started the documentation. Note, exam, recs, plan, discussions were completed & approved by myself. Jayy Christianson MD Patient was seen and examined with attending Improvement Analyst: Dr. Christianson. The patient says that he feels 'ok' today. he denies any cp or sob. his urine output is no glea. The following portions of the patient's history [...] Nephrology Author Type: Nurse Practitioner Filed: 10/11/17 5281 Date of Service: 10/11/17 1236 Status: Attested Binding Stitcher: DARRELL Damon (Nurse Practitioner) Cosigner: Jayy Christianson MD at 10/19 6894 Attestation signed by Jayy Christianson MD at 10/19/17 8756 I have seen & personally examined the pt with Chriss RAMÍREZ; I have discussed the c ase with him. I agree with his findings & documentation. Add: No acute HEAT SEAL OPERATOR indication today Plan it for tomorrow Plan [...] Patient was seen and examined with attending Improvement Analyst: Dr. Christianson. He was seen in the [...] Infusions: heparin 50 units/mL 10 Units/kg/hr (10/11/17 0550) PRN Meds:.acetaminophen OR acetaminophen, albumin human, albuterol, [...] Date of Service: 10/07/17 1640 Status: Signed Binding Stitcher: Dwain Lima MD (Physician) Consult Orders: 1. Inpatient consult to Infectious Diseases [[id number]] ordered by Vikram Colbert MD at 09/22 12/[address] [place] [address] Service: Infectious Diseases Initial Consult Note Date [...] upper extremity seen in consultation for marnie re right upper extremity cellulitis. The patient was [...] problems. The patient had presented initially to [facility] emergency department and the patient was sent to [facility] ER for evaluation. The patient received vancom ycin and cefepime while at the emergency department at [facility]. This time, the patient was noted [...] any more, no symptoms AV fistula ([facility]) lt arm 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 Chronic obstructive asthma with exacerbation ([facility]) 10/27/2013 Chronic systolic heart failure ([facility]) 09/10/2016 Diabetes mellitus type I ([facility]) Dialysis patient ([facility]) DVT (deep venous thrombosis) ([facility]) x3 GI bleed 04/30/2012 from coumadin Gout [...] Oskar Meyer MD; Location: [facility] MAIN OR; Service: Vascula r; Laterality: Right; AV FISTULA PLACEMENT Left 05/06/2012 Procedure: AV FISTULA; Surgeon: Oskar Meyer MD; Location: [facility] MAIN OR; Service: Vascula r; Laterality: Left; Left arm possible right AV FISTULA REPAIR Left 07/11/2012 Procedure: AV FISTULA - GRAFT REPAIR/REVISION; Surgeon: Oskar Meyer MD; Location: [facility] IN OR; Service: Vascular; Laterality: Left; Superficialization of brachiobasilic fistula and right IJ perm cath insertion CATHETER REMOVAL Right 07/07/2012 Procedure: DIALYSIS CATHETER - REMOVAL; Surgeon: Oskar Meyer MD; Location: [facility] BEDSIDE P ROCEDURE; Service: General; Laterality: Right; perm cath COLONOSCOPY WITH EGD N/A 05/01/2012 Procedure: COLONOSCOPY W/ EGD; Surgeon: John Singleton MD; Location: [facility] ENDOSCOPY; Ser vice: Gastroenterology; Laterality: N/A; DIALYSIS FISTULA CREATION Left 07/11/2012 Procedure: DIALYSIS CATHETER - INSERTION; Surgeon: Oskar Meyer MD; Location: [facility] MAIN OR ; Service: Vascular; Laterality: Left; removed dialysis catheter from left neck and place d new on in left chest, attempted in right neck but unable to place DIALYSIS FISTULA CREATION Left 07/07/2012 Procedure: DIALYSIS CATHETER - INSERTION; Surgeon: Oskar Meyer MD; Location: [facility] BEDSIDE PROCEDURE; Service: General; Laterality: Left; temporary dialysis catheter KNEE ARTHROSCOPY Right 07/07/2012 Procedure: KNEE - ARTHROSCOPY; Surgeon: Favio Raza MD; Location: [facility] MAIN OR; Se rvice: Orthopedics; Laterality: Right; After 1530 SUPERFICIALIZATION OF AV FISTULA Right 03/30/2014 Procedure: AV FISTULA - SUPERFICIALIZATION; Surgeon: Oskar Meyer MD; Location: [facility] MAIN OR; Service: Vascular; Laterality: Right; UNLISTED [...] KIDS. CURRENTLY UNEMPLOYED, BEFOR E WORKED AT [employer] IN [place]. Quit METHAMPHETAMINES PER PATIENT after t he [...] tablet 800 mg 800 mg Oral TID Roberto Mtz MD sodium bicarbonate tablet 1,300 mg 1,300 mg Oral BID Roberto Mtz MD sodium chloride 0.9 % flush 10 mL 10 mL Intravenous Q8H Trevor Bernal DO vancomycin (VANCOCIN) 750 mg/250 mL IVPB 750 mg Intravenous See Admin Instructions Obi Bhatt RPH zolpidem (AMBIEN) tablet 5 mg 5 mg [...] Value Units Date/Time Anaerobic Culture W/Gram Stain [[id number]] Collected: 10/07/17 1611 Specimen: Abscess Updated: 10/07/17 1631 MRSA by PCR [[id number]] (Abnormal) Collected: 10/07/17 0650 Specimen: Nasopharyngeal from Nares(Nose) Updated: 10/07/17 0818 SOURCE NARES(NOSE) MRSA PCR POSITIVE for MRSA by PCR (A) Blood Culture Set 1 [[id number]] Collected: 10/07/17 0421 Specimen: Blood from Blood Updated: 10/07/17 0656 Blood culture, set 2 [[id number]] Collected: 10/07/17 0447 Specimen: Blood from Blood, [...] Physician A ssistant - Certified Filed: 10/07/17 9072 Date of Service: 10/07/17 1005 Status: Attested Addendum Binding Stitcher: Eliseo Cat PA-C (Physician Orchestra Teacher - Certified) Related Notes: Original Note by Eliseo Cat PA-C (Physician Orchestra Teacher - Certified) fi led at 10/07/17 1058 [...] several days ago when he presented to [facility] on 10/05/2017 for compl aints of swelling in his right upper extremity. An US was performed showing no evidence of D VT in the upper extremity around his right sided AV fistula. He was discharged home and told to remain on his current antibiotic therapy that was being administered through his HD. He presented again to [facility] this morning, 10/07/2017, for the same complaint [...] (HCC) Anemia in ESRD (end-stage renal disease) ([facility]) Superior vena caval stenosis Review of Systems: [...] any more, no symptoms AV fistula ([facility]) lt arm 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 Chronic obstructive asthma with exacerbation ([facility]) 10/27/2013 Chronic systolic heart failure ([facility]) 09/10/2016 Diabetes mellitus type I ([facility]) Dialysis patient ([facility]) DVT (deep venous thrombosis) ([facility]) x3 GI bleed 04/30/2012 from coumadin Gout Hyperkalemia 11/09/2013 Hyperlipidemia Hyperphosphatemia 05/24/2012 Hypertension Hyponatremia 09/08/2016 Knee pain, right 07/06/2012 MSSA (methicillin susceptible Staphylococcus aureus) infection 04/11/2012 Neuromuscular disorder ([facility]) neuropathy 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 Rash and nonspecific skin eruption 04/03/2012 SOB (shortness of breath) 10/27/2013 Superior vena caval stenosis 10/07/2017 Thyroid disease Walker as ambulation aid Past Surgical History: Past Surgical History Procedure Laterality Date AV FISTULA PLACEMENT Right 02/09/2014 Procedure: AV FISTULA; Surgeon: Oskar Meyer MD; Location: [facility] MAIN OR; Service: Vascula r; Laterality: Right; AV FISTULA PLACEMENT Left 05/06/2012 Procedure: AV FISTULA; Surgeon: Oskar Meyer MD; Location: [facility] MAIN OR; Service: Vascula r; Laterality: Left; Left arm possible right AV FISTULA REPAIR Left 07/11/2012 Procedure: AV FISTULA - GRAFT REPAIR/REVISION; Surgeon: Oskar Meyer MD; Location: [facility] IN OR; Service: Vascular; Laterality: Left; Superficialization of brachiobasilic fistula and right IJ perm cath insertion CATHETER REMOVAL Right 07/07/2012 Procedure: DIALYSIS CATHETER - REMOVAL; Surgeon: Oskar Meyer MD; Location: [facility] BEDSIDE P ROCEDURE; Service: General; Laterality: Right; perm cath COLONOSCOPY WITH EGD N/A 05/01/2012 Procedure: COLONOSCOPY W/ EGD; Surgeon: John Singleton MD; Location: [facility] ENDOSCOPY; Ser vice: Gastroenterology; Laterality: N/A; DIALYSIS FISTULA CREATION Left 07/11/2012 Procedure: DIALYSIS CATHETER - INSERTION; Surgeon: Oskar Meyer MD; Location: [facility] MAIN OR ; Service: Vascular; Laterality: Left; removed dialysis catheter from left neck and place d new on in left chest, attempted in right neck but unable to place DIALYSIS FISTULA CREATION Left 07/07/2012 Procedure: DIALYSIS CATHETER - INSERTION; Surgeon: Oskar Meyer MD; Location: [facility] BEDSIDE PROCEDURE; Service: General; Laterality: Left; temporary dialysis catheter KNEE ARTHROSCOPY Right 07/07/2012 Procedure: KNEE - ARTHROSCOPY; Surgeon: Favio Raza MD; Location: [facility] MAIN OR; Se rvice: Orthopedics; Laterality: Right; After 1530 SUPERFICIALIZATION OF AV FISTULA Right 03/30/2014 Procedure: AV FISTULA - SUPERFICIALIZATION; Surgeon: Oskar Meyer MD; Location: [facility] OR; Service: Vascular; Laterality: Right; UNLISTED [...] KIDS. CURRENTLY UNEMPLOYED, BEFOR E WORKED AT [employer] IN [place]. Quit METHAMPHETAMINES PER PATIENT after t he [...] 07 2017 4:43AM [facility] Provider Line: [phone] ID: [id number] X-ray Chest 1 View Result Date: 10/07/2017 This is a non-reportable procedure without a radiologist report and is used for image [employer] - Smartphone RFID Us Upper Extremity Venous Right Result Date: [...] procedure were discussed with Dr. Colbert, the [facility] hospitalist. Questions were answered. Signed and verbal [...] - 10/07/2017 8:43 AM PDT Consult* by Csomo Soria MD at 10/07/17 0843 Author: Cosmo Soria MD Service: Nephrology Author Type: Physician Filed: 10/10/17 1349 Date of Service: 10/07/17842 Status: Addendum Binding Stitcher: Cosmo Soria MD (Physician) Related Notes: Original [...] he would be able to return to [facility] for Saturday for dialysis. He was not clinically uremic, hyperkalemic, acido tic or uremic at that time. He however returned to emergency room at [facility] with worsening of the swell ing. He was transferred back to [facility] He was afebrile and otherwise hemodynamically stable [...] is dialyzed Saturday an d Saturday at [facility] unit using right UE AVF (Dr. [...] he had a complicated st ay at [facility] including development of pericardial effusion s/p attempt [...] bacteremia) when we plan to dialyze today. Export Freight Clerk evaluation for low K diet. Continue vancomycin [...] was completed later after rounds. Dictation software, [employer], was used which may contain error for [...] PDT Consults by Obdulio Ellison MD at 10/07/17 0704 Author: Obdulio Ellison MD Service: Vascular Surgery Author Type: Physician Filed: 10/07/17 0721 Date of Service: 10/07/17703 Status: Signed Binding Stitcher: Obdulio Ellison MD (Physician) Consult Orders: 1. Consult to Vascular Surgery [[id number]] ordered by Roberto Mtz MD at 10/07/17 0506 [facility] Service: Vascular Surgery Initial Consult Note Date [...] ER and was subsequentl y transferred to [facility]. This morning he continues to complain of [...] any more, no symptoms AV fistula ([facility]) lt arm 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 Chronic obstructive asthma with exacerbation ([facility]) 10/27/2013 Chronic systolic heart failure ([facility]) 09/10/2016 Diabetes mellitus type I ([facility]) Dialysis patient ([facility]) DVT (deep venous thrombosis) ([facility]) x3 GI bleed 04/30/2012 from coumadin Gout Hyperkalemia 11/09/2013 Hyperlipidemia Hyperphosphatemia 05/24/2012 Hypertension Hyponatremia 09/08/2016 Knee pain, right 07/06/2012 MSSA (methicillin susceptible Staphylococcus aureus) infection 04/11/2012 Neuromuscular disorder ([facility]) neuropathy 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[facility]) 05/01/2012 Rash and nonspecific skin eruption 04/03/2012 SOB (shortness of breath) 10/27/2013 Thyroid disease Walker as ambulation aid Past Surgical History Procedure Laterality Date AV FISTULA PLACEMENT Right 02/09/2014 Procedure: AV FISTULA; Surgeon: Oskar Meyer MD; Location: [facility] MAIN OR; Service: Vascula r; Laterality: Right; AV FISTULA PLACEMENT Left 05/06/2012 Procedure: AV FISTULA; Surgeon: Oskar Meyer MD; Location: [facility] MAIN OR; Service: Vascula r; Laterality: Left; Left arm possible right AV FISTULA REPAIR Left 07/11/2012 Procedure: AV FISTULA - GRAFT REPAIR/REVISION; Surgeon: Oskar Meyer MD; Location: [facility] IN OR; Service: Vascular; Laterality: Left; Superficialization of brachiobasilic fistula and right IJ perm cath insertion CATHETER REMOVAL Right 07/07/2012 Procedure: DIALYSIS CATHETER - REMOVAL; Surgeon: Oskar Meyer MD; Location: [facility] BEDSIDE P ROCEDURE; Service: General; Laterality: Right; perm cath COLONOSCOPY WITH EGD N/A 05/01/2012 Procedure: COLONOSCOPY W/ EGD; Surgeon: John Singleton MD; Location: [facility] ENDOSCOPY; Ser vice: Gastroenterology; Laterality: N/A; DIALYSIS FISTULA CREATION Left 07/11/2012 Procedure: DIALYSIS CATHETER - INSERTION; Surgeon: Oskar Meyer MD; Location: [facility] MAIN OR ; Service: Vascular; Laterality: Left; removed dialysis catheter from left neck and place d new on in left chest, attempted in right neck but unable to place DIALYSIS FISTULA CREATION Left 07/07/2012 Procedure: DIALYSIS CATHETER - INSERTION; Surgeon: Oskar Meyer MD; Location: [facility] BEDSIDE PROCEDURE; Service: General; Laterality: Left; temporary dialysis catheter KNEE ARTHROSCOPY Right 07/07/2012 Procedure: KNEE - ARTHROSCOPY; Surgeon: Favio Raza MD; Location: [facility] MAIN OR; rvice: Orthopedics; Laterality: Right; After 1530 SUPERFICIALIZATION OF AV FISTULA Right 03/30/2014 Procedure: AV FISTULA - SUPERFICIALIZATION; Surgeon: Oskar Meyer MD; Location: [facility] MAIN OR; Service: Vascular; Laterality: Right; UNLISTED [...] F (37 C)] 98.6 F (37 C) (10/08 631) BP: (142-150)/(66-77) 142/66 (10/08 631) Heart Rate: [...] fluid around the right biceps muscle measuring [id number] concerning for pyomyo sitis. Previously placed right [...] source. I have contacted Dr. Haile from [facility] as he was also notified of the [...] Ellison MD, FACS [facility] Location: [address] [place] [address]. [address] [place] [place] [address] (Office) documente d in this encounter ED Notes Conversion Transaction, Provider Unknown - 10/11/2017 11:02 AM PDTFormatting of this note m ight be different from the original. ED Notes by Porsha Cast RN at 10/11/17 1102 Author: Porsha Cast RN Service: Cardiology Author Type: Registered Nurse Filed: 10/11/17 1114 Date of Service: 10/11/17 1102 Status: Addendum Binding Stitcher: Porsha Cast RN (Registered Nurse) Related Notes: [...] Notes by Johnson Mak RN at 10/07/17 7721 Author: Johnson Mak RN Service: (none) Author Type: Registered Nurse Filed: 10/07/17 0507 Date of Service: 10/07/17 0507 Status: Signed Binding Stitcher: Johnson Mak RN (Registered Nurse) Pt resting comfortably, lab just left w/ 2nd set of cultures. Johnson Mak RN 10/07/17 0288 onver quique Transaction, Provider Unknown - 10/07/2017 4:24 AM PDT ED Notes by Johnson Mak RN at 10/07/17 1904 Author: Johnson Mak RN Service: (none) Author Type: Registered Nurse Filed: 10/07/17 0425 Date of Service: 10/07/17423 Status: Signed Binding Stitcher: Johnson Mak RN (Registered Nurse) Jordan at bedside attempting IV start w/ ultrasound. Johnson Mak RN 10/07/17424 onver quique Transaction, Provider Unknown - 10/07/2017 3:41 AM PDT ED Notes by Johnson Mak RN at 10/07/17340 Author: Johnson Mak RN Service: (none) Author Type: Registered Nurse Filed: 10/07/17347 Date of Service: 10/07/17340 Status: Addendum Binding Stitcher: Johnson Mak RN (Registered Nurse) Related Notes: [...] 10/07/17320 Date of Service: 10/07/17319 Status: Signed Binding Stitcher: Johnson Mak RN (Registered Nurse) Pt states he does dialysis sat. Sat. sat. Last Saturday his fistula started swelling and has not had dialysis in week Young at bedside. Johnson Mak RN 10/07/17320 Trevor Flynn DO - 10/07/2017 3:20 AM PDT ED Provider Notes by Trevor Bernal DO at 10/07/17319 Author: Trevor Bernal DO Service: Emergency Department Author Type: Physician Filed: 10/07/172002 Date of Service: 10/07/17319 Status: Signed Binding Stitcher: Trevor Bernal DO (Physician) [facility] Department of Emergency Medicine 3:20 AM History [...] Context- The patient was being evaluated at [facility] ED who referred him to our depa rtment for further evaluation with concern for infection around his RUE fistula site. He was given IV vancomycin and Cefepime while at [facility]. The patient receives dialysis M/ /, last [...] 07/06/2012 Chronic obstructive asthma with exacerbation ([facility]) 10/27/2013 Chronic systolic heart failure ([facility]) 09/10/2016 Diabetes mellitus type I ([facility]) Dialysis patient ([facility]) DVT (deep venous thrombosis) ([facility]) x3 GI bleed 04/30/2012 from coumadin Gout [...] Oskar Meyer MD; Location: [facility] MAIN OR; Service: Vascula r; Laterality: Right; AV FISTULA PLACEMENT Left 05/06/2012 Procedure: AV FISTULA; Surgeon: Oskar Meyer MD; Location: [facility] MAIN OR; Service: Vascula r; Laterality: Left; Left arm possible right AV FISTULA REPAIR Left 07/11/2012 Procedure: AV FISTULA - GRAFT REPAIR/REVISION; Surgeon: Oskar Meyer MD; Location: [facility] IN OR; Service: Vascular; Laterality: Left; Superficialization of brachiobasilic fistula and right IJ perm cath insertion CATHETER REMOVAL Right 07/07/2012 Procedure: DIALYSIS CATHETER - REMOVAL; Surgeon: Oskar Meyer MD; Location: [facility] BEDSIDE P ROCEDURE; Service: General; Laterality: Right; perm cath COLONOSCOPY WITH EGD N/A 05/01/2012 Procedure: COLONOSCOPY W/ EGD; Surgeon: John Singleton MD; Location: [facility] ENDOSCOPY; Ser vice: Gastroenterology; Laterality: N/A; DIALYSIS FISTULA CREATION Left 07/11/2012 Procedure: DIALYSIS CATHETER - INSERTION; Surgeon: Oskar Meyer MD; Location: [facility] OR ; Service: Vascular; Laterality: Left; removed dialysis catheter from left neck and place d new on in left chest, attempted in right neck but unable to place DIALYSIS FISTULA CREATION Left 07/07/2012 Procedure: DIALYSIS CATHETER - INSERTION; Surgeon: Oskar Meyer MD; Location: [facility] BEDSIDE PROCEDURE; Service: General; Laterality: Left; temporary dialysis catheter KNEE ARTHROSCOPY Right 07/07/2012 Procedure: KNEE - ARTHROSCOPY; Surgeon: Favio Raza MD; Location: [facility] MAIN OR; Se rvice: Orthopedics; Laterality: Right; After 153 SUPERFICIALIZATION OF AV FISTULA Right 03/30/2014 Procedure: AV FISTULA - SUPERFICIALIZATION; Surgeon: Oskar Meyer MD; Location: [facility] OR; Service: Vascular; Laterality: Right; UNLISTED [...] KIDS. CURRENTLY UNEMPLOYED, BEFOR E WORKED AT [employer] IN [employer]. Quit METHAMPHETAMINES PER PATIENT after t he [...] sore throat CV/Resp: Negative for chest pain, [id number], cough GI: Negative for abdominal pain, nausea, [...] Reviewed Old medical records. Nursing notes. Previous [facility] ED visits for unrelated complaints. [facility] records reviewed Potassium 5.7 Sodium 127 WBC 7.9 Troponin Elevated Laboratory Evaluation Results Procedure Component Value Ref Range Date/Time Blood Culture Set 1 [[id number]] Collected: 10/07/17420 Order Status: Sent Specimen: Blood from Blood Updated: 10/07/1756 Blood culture, set 2 [[id number]] Collected: 10/07/17446 Order Status: Sent Specimen: Blood from Blood, peripheral draw Updated: 10/07/17655 Cardiac Panel [[id number]] (Abnormal) Collected: 10/07/17338 Order Status: Completed Updated: 10/07/17430 WBC 8.72 [...] ng/mL CK-MB Index 4.7 Troponin I, Lab [[id number]] Collected: 10/07/17338 Order Status: Completed Specimen: Blood Updated: 10/07/17430 TROPONIN I <0.020 0.00 - 0.10 ng/mL C-Reactive Protein [[id number]] (Abnormal) Collected: 10/07/17338 Order Status: Completed Specimen: Blood Updated: 10/07/17430 CRP 9.3 (H) <0.5 mg/dL Sedimentation Rate (ESR) [[id number]] (Abnormal) Collected: 10/07/17338 Order Status: Completed Specimen: [...] 07 2017 4:43AM Referring Provider Tg sierra: [phone] ID: [id number] Narrative: EXAM: RIGHT UPPER EXTREMITY [...] Interpretation==== Time: 0330 Rate: 83 Rhythm: sinus [place]: normal Intervals: normal ST: diffuse flattened Compared [...] Procedures Additional Documentation Procedures Attending Provider Note: ITrevor DO personally performed the services described i [...] 10/07/17314 Date of Service: 10/07/17314 Status: Signed Binding Stitcher: Vanessa Tate RN (Registered Nurse) Bed: 19 Expected date: Expected time: Means of arrival: Comments: carol Tate RN 10/07/17314 onver quique Transaction, Provider Unknown - 10/07/2017 2:15 AM PDT ED Triage Notes by Vanessa Tate RN at 10/07/17214 Author: Vanessa Tate RN Service: (none) Author Type: Registered Nurse Filed: 10/07/17224 Date of Service: 10/07/17214 Status: Signed Binding Stitcher: Vanessa Tate RN (Registered Nurse) Transfer from [facility] for c/o chest pain and right [...] Service: (none) Author Type: Registered Nurse Filed: 10/19/1745 Date of Service: 10/19/17843 Status: Signed Binding Stitcher: Nikky Ball RN (Registered Nurse) Problem: Safety [...] Unknown - 10/18/2017 11:07 PM PDTFormatting of shannon wells note might be different from the original. Plan of Care by Shyanne Nesbitt RN at 10/18/172306 Author: Shyanne Nesbitt RN Service: (none) Author Type: Registered Nurse Filed: 10/18/172306 Date of Service: 10/18/172306 Status: Signed Binding Stitcher: Shyanne Nesbitt RN (Registered Nurse) Safety Patient will be injury free during hospitalization Progressing Maintain bed in low, locked position at all times. [place] patient and family to hospital surroundings. Provide non-skid slippers. Call light within reach. Rounding per standard. lan o f Care - Conversion Transaction, Provider Unknown - 10/18/2017 12:07 PM PDTFormatting of shannon wells note might be different from the original. Plan of Care by Faustino Singh RN at 10/18/171206 Author: Faustino Singh RN Service: (none) Author Type: Registered Nurse Filed: 10/18/171207 Date of Service: 10/18/171206 Status: Signed Binding Stitcher: Faustino Singh RN (Registered Nurse) Pain Goal: [...] in low, locked position at all times. [place] patient and family to hospital surroundings. Provide [...] Unknown - 10/17/2017 8:31 PM PDTFormatting of shannon s note might be different from the original. Plan of Care by Shyanne Nesbitt RN at 10/17/172030 Author: Shyanne Nesbitt RN Service: (none) Author Type: Registered Nurse Filed: 10/17/172031 Date of Service: 10/17/172030 Status: Signed Binding Stitcher: Shyanne Nesbitt RN (Registered Nurse) Pain Patient's pain/discomfort is manageable Progressing Patient states pain is tolerable at this moment, will continue to monitor and provide medic ation as well as comfort measures as needed. lan o f Care - Conversion Transaction, Provider Unknown - 10/17/2017 11:50 AM PDTFormatting of shannon s note might be different from the original. Plan of Care by Faustino Singh RN at 10/17/171149 Author: Faustino Singh RN Service: (none) Author Type: Registered Nurse Filed: 10/17/171150 Date of Service: 10/17/171149 Status: Signed Binding Stitcher: Faustino Singh RN (Registered Nurse) Pain Goal: [...] in low, locked position at all times. [place] patient and family to hospital surroundings. Provide [...] 10/16/172029 Date of Service: 10/16/172029 Status: Signed Binding Stitcher: Shyanne Nesbitt RN (Registered Nurse) Daily Care [...] 10/16/171106 Date of Service: 10/16/171106 Status: Signed Binding Stitcher: Praveena Cordova RN (Registered Nurse) Problem: Safety [...] ue to monitor Pt and medicate PRN. icat lazcano - Conversion Transaction, Provider Unknown - 10/16/2017 9:45 AM PDTFormatting of th is note might be different from the original. Treatment Plan by Barbara Ramos PT at 10/16/17 0906 Author: Barbara Ramos PT Service: (none) Author Type: Physical Therapist Filed: 10/16/17 1116 Date of Service: 10/16/17 6002 Status: Signed Binding Stitcher: Barbara Ramos PT (Physical Therapist) PHYSICAL THERAPY EVALUATION PT Received On: 10/16/17 Reason for Treatment: Other (comment) (right upper extremity pain and swelling) Requires PT Follow Up: No Follow up PT Only?: No PT Eval/Reassessment Date: 10/16/17 Assistance Required: 1 person Data Entry Needed: No Recommendations: Home Assist Equipment Recommended: [...] around house ) Prior Function Level of [place]: Modified independent with functional mobility, Modified independent [...] Refused Physical Therapy Goals eval/dc Low - 86752 Moderate - 27640 High - 91029 History [] no personal factors &/or comorbidities [x] 1-2 personal factors &/or comorbidit ies [] 3 or more personal factors &/or comorbidities Examination [] 1-2 elements [x] 3 elements [] 4 or more elements Clinical Presentation [x] stable [] evolving [] unstable Clinical Decision Making Complexity: [x] Low 71325 [] Moderate 50474 [] High 9 7163 lan o f Care - Conversion Transaction, Provider Unknown - 10/16/2017 1:20 AM PDTFormatting of thi s note might be different from the original. Plan of Care by Obie Andujar RN at 10/16/17119 Author: Obie Andujar RN Service: (none) Author Type: Registered Nurse Filed: 10/16/17120 Date of Service: 10/16/17119 Status: Signed Binding Stitcher: Obie Andujar RN (Registered Nurse) Pain Goal: [...] per hospital policy. . lan o f Care - Bhargav Mercado MD - 10/15/2017 11:25 PM PDTFormatting of this note might be diffe rent from the original. Plan of Care by Bhargav Mercado MD at 10/15/173 Author: Bhargav Mercado MD Service: Hospitalist Author Type: Physician Filed: 10/18/171934 Date of Service: 10/15/172324 Status: Signed Binding Stitcher: Bhargav Mercado MD (Physician) Related Notes: Original Note by Bhargav Mercado MD (Physician) filed at 10/15/17 7125 Notified by RN, the patient had 10 out of 10 chest pain. Evaluated the patient at the [facility]. Reported right nipple pain that is worse [...] Care by Kimber Mario RN at 10/15/17 2442 Author: Kimber Mario RN Service: (none) Author Type: Registered Nurse Filed: 10/15/17 1124 Date of Service: 10/15/174 Status: Signed Binding Stitcher: Kimber Mario RN (Registered Nurse) Daily Care [...] 0241 Date of Service: 10/15/17238 Status: Signed Binding Stitcher: Grecia Rangel RN (Registered Nurse) Pain Patient's [...] Date of Service: 10/14/17 1606 Status: Signed Binding Stitcher: Dwain Lima MD (Physician) No stable regimen for vancomycin yet. Pending levels after next dialysis. lan of Care - Conversion Transaction, Provider Unknown - 10/14/2017 10:59 AM PDT Plan of Care by Lubna Peterson RN at 10/14/171058 Author: Lubna Peterson RN Service: (none) Author Type: Registered Nurse Filed: 10/14/171058 Date of Service: 10/14/171058 Status: Signed Binding Stitcher: Lubna Peterson RN (Registered Nurse) Daily Care [...] 10/13/172238 Date of Service: 10/13/172237 Status: Signed Binding Stitcher: Grecia Rangel RN (Registered Nurse) Pain Patient's [...] 10/13/171120 Date of Service: 10/13/171120 Status: Signed Binding Stitcher: Maude Toussaint RN (Registered Nurse) Daily Care [...] 10/12/172150 Date of Service: 10/12/172118 Status: Signed Binding Stitcher: Rhoda Reyes RN (Registered Nurse) Daily Care [...] of Care by Tanya Doyle RN at 10/12/17 1326 Author: Tanya Doyle RN Service: (none) Author Type: Registered Nurse Filed: 10/12/17 1326 Date of Service: 10/12/17 1326 Status: Signed Binding Stitcher: Tanya Doyle RN (Registered Nurse) Problem: Safety [...] 10/11/172246 Date of Service: 10/11/172245 Status: Signed Binding Stitcher: Steve Haile RN (Registered Nurse) Daily Care [...] as appropriate. p Not e - Sill, Jimenez Driscoll MD - 10/11/2017 11:05 AM PDTFormatting of this note might be differ ent from the original. Brief Op Note by Jimenez Garnica MD PhD at 10/11/17 1105 Author: Jimenez Garnica MD PhD Service: Interventional Radiology Author Type: Physician Filed: 10/11/17 1110 Date of Service: 10/11/171104 Status: Signed Binding Stitcher: Jimenez Garnica MD PhD (Physician) Interventional Radiology Post Procedure Note Patient Name: Carol Potter Date of : 1965 Procedure(s): Right arm fistulagram, right subclavian/innominate recanalization/angioplasty and placement of tunneled dialysis catheter Pre OP Diagnosis: Right subclavian/innominate venous occlusion, ESRD Post OP Diagnosis: same Electrical Mechanic: Jimenez Garnica MD Anesthesia Type: IV Conscious [...] of Care by Eri Clinton RN at 10/10/172321 Author: Eri [place] RN Service: (none) Author Type: Registered Nurse Filed: 10/10/172322 Date of Service: 10/10/172321 Status: Signed Binding Stitcher: Eri [place] RN (Registered Nurse) Daily Care [...] 10/10/171104 Date of Service: 10/10/171104 Status: Signed Binding Stitcher: Tanya Doyle RN (Registered Nurse) Problem: Safety [...] 10/10/17124 Date of Service: 10/10/17124 Status: Signed Binding Stitcher: Eri [place] RN (Registered Nurse) Daily Care Daily care needs are met Progressing Patient calls for any needs. Infection Signs and symptoms of infections are decreased or avoided Progressing Safety Patient will be injury free during hospitalization Progressing lan o f Care - Dionne Minor MD - 10/09/2017 10:50 PM PDTFormatting of this note might be differ ent from the original. Plan of Care by Dionne Minor MD at 10/09/172249 Author: Dionne Minor MD Service: Hospitalist Author Type: Physician Filed: 10/10/17 0005 Date of Service: 10/09/172249 Status: Signed Binding Stitcher: Dionne Minor MD (Physician) RAT called. Patient with [...] with MRI. Dionne Minor MD lan of Care - Ellie Rangel MD - 10/09/2017 1:15 PM PDTFormatting of this note might be different from th e original. Plan of Care by Khanh Rangel MD at 10/09/17 1315 Author: Khanh Rangel MD Service: Hospitalist Author Type: Physician Filed: 10/09/17 1329 Date of Service: 10/09/17 1315 Status: Signed Binding Stitcher: Khanh Rangel MD (Physician) Encountered and examined patient in room 423 with . Patient is getting dialysis. Rounding w [facility] Residency team. I agree with Dr. Barrow's [...] Care by Mihir Dan RN at 10/09/17 1101 Author: Mihir Dan RN Service: (none) Author Type: Registered Nurse Filed: 10/09/17 1101 Date of Service: 10/09/17 1101 Status: Signed Binding Stitcher: Mihir Dan RN (Registered Nurse) Daily Care [...] Note by Jimenez Garnica MD PhD at 10/09/17 0851 Author: Jimenez Garnica MD PhD Service: Interventional Radiology Author Type: Physician Filed: 10/09/17 0858 Date of Service: 10/09/17 0851 Status: Signed Binding Stitcher: Jimenez Garnica MD PhD (Physician) Interventional Radiology Post Procedure Note Patient Name: Carol Potter Date of : 1965 Procedure(s): Left brachiocephalic/SVC gram, left brachiocephalic angioplasty and SVC fibri n sheath stripping, replacement of temporary dialysis catheter. Pre OP Diagnosis: Nonfunctioning left IJ dialysis catheter Post OP Diagnosis: same Electrical Mechanic: Jimenez Garnica MD Anesthesia Type: IV Conscious [...] of the left innom inate vein/SVC with yazidism of flow. New 12 Fr Mahurkar placed with tip at cavoatrial ju nction with good flow in all ports, packed with heparin. Specimens: none EBL: minimal Complications: None PLAN: Ready for dialysis; tip position confirmed. A full report will follow in the imaging section. Jimenez Garnica MD, PhD Interventional Radiologist and Vascular Medicine Specialist iscellaneous - Danika, Jimenez Driscoll MD - 10/09/2017 7:30 AM PDT Treatment Plan by Jimenez Garnica MD PhD at 10/09/17729 Author: Jimenez Garnica MD PhD Service: Interventional Radiology Author Type: Physician Filed: 10/09/17 0732 Date of Service: 10/09/17729 Status: Signed Binding Stitcher: Jimenez Garnica MD PhD (Physician) Moderate Sedation [...] 10/08/172024 Date of Service: 10/08/172024 Status: Signed Binding Stitcher: Steve Haile RN (Registered Nurse) Daily Care [...] of Care by Ronit Wesley RN at 10/08/17 1213 Author: Ronit Wesley RN Service: (none) Author Type: Registered Nurse Filed: 10/08/171212 Date of Service: 10/08/171212 Status: Signed Binding Stitcher: Ronit Wesley RN (Registered Nurse) Daily Care [...] 10/07/172236 Date of Service: 10/07/172235 Status: Signed Binding Stitcher: Valencia Ortiz RN (Registered Nurse) Daily Care [...] of Care by Carola Herrmann RN at 10/07/171799 Author: Carola Herrmann RN Service: (none) Author Type: Registered Nurse Filed: 10/07/171799 Date of Service: 10/07/171799 Status: Signed Binding Stitcher: Carola Herrmann RN (Registered Nurse) Patient will be injury free during hospitalization Progressing Call light in place. Instructed patient to use when assistance is needed. CAROLA HERRMANN RN 10/07/2017 6:00 PM lan o f [place] - Jimenez Garnica MD - 10/07/2017 12:33 PM PDTFormatting of this note might be d ifferent from the original. ACP (Advance Care Planning) by Jimenez Garnica MD PhD at 10/07/17 1233 Author: Jimenez Garnica MD PhD Service: Interventional Radiology Author Type: Physician Filed: 10/07/17 1238 Date of Service: 10/07/17 1233 Status: Signed Binding Stitcher: Jimenez Garnica MD PhD (Physician) Interventional Radiology Post Procedure Note Patient Name: Carol Potter Date of : 1965 Procedure(s): Left IJ vein temporary dialysis catheter placement and right arm soft tissue fluid aspiration Pre OP Diagnosis: Right arm abscess Post OP Diagnosis: same Electrical Mechanic: Jimenez Garnica MD Anesthesia Type: IV Conscious Sedation with Fentanyl and Versed. Findings: Computer Drafter fluoroscopic image demonstrates unchanged position of right [...] | + +--------+ + + + | ALONSO TROUGH | Routin | 10/14/2017 | | [...] | | | | | performed at [facility];[address] | | | | | | [address];[place], [place] | | | | | | [address] | | | | + + + [...] | Basophils | performed at [facility], [address] | K/uL | LAB | | | | Janna Jeffrey, | | | | | | [place] [address] | | | | + + + [...] | | | performed at [facility], [address] | | LAB | | | | Janna [address], | | | | | | [place] [address] | | | | + + + [...] | | | performed at [facility], [address] | | LAB | | | | Janna Jeffrey, | | | | | | [place] [address] | | | | + + + [...] Jeffrey, | | | | | | [place] [address] | | | | + + + [...] | LAB | | | | FAUSTINO S/DEMETRI | | | | | | 0830T,JBREAD BACK | | | | | | RESULTS VERIFIEDTesting | | | | | | performed at [facility];[address] | | | | | | [address];[place], [place] | | | | | | [address] | | | | + + + [...] | | | | | performed at [facility];[address] | | | | | | [address] [facility];[place], [place] | | | | | | [address] | | | | + + + [...] | Basophils | performed at [facility], [address] | K/uL | LAB | | | | Janna Jeffrey, | | | | | | [place] [address] | | | | + + + [...] EXTERNAL | | | | performed at [facility];[address] | | LAB | | | | [address];[place], [place] | | | | | | [address] | | | | + + + [...] EXTERNAL | | | | performed at [facility];[address] | | LAB | | | | [address] Jeffrey;[place], [place] | | | | | | [address] | | | | + + + [...] | | | Random | performed at [facility];[address] | | LAB | | | | [address] Jeffrey;[place], [place] | | | | | | [address] | | | | + + + [...] | | | | | | at [facility];[address] [place] [address] | | | | | | [facility];[place] [address] | | | | + + + [...] | | | Patient | performed at [facility];[address] | | LAB | | | | [address];[place], [place] | | | | | | [address] | | | | + + + [...] | | | Patient | performed at [facility];[address] | | LAB | | | | Ishaan Jeffrey;[place] | | | | | | [address] | | | | + + + [...] | | | Patient | performed at [facility];[address] | | LAB | | | | [address];[place], [place] | | | | | | [address] | | | | + + + [...] | | | Fingerstick | performed at [facility];[address] | | LAB | | | | Ishaan Jeffrey;[place] | | | | | | [address] | | | | + + + [...] | | | Patient | performed at [facility];[address] | | LAB | | | | Ishaan Jeffrey;[place] | | | | | | [address] | | | | + + + [...] | | | | | performed at [facility];[address] | | | | | | [address] [facility];[place], [place] | | | | | | [address] | | | | + + + [...] LAB | | | | performed at [facility], [address] | | | | | | Janna Jeffrey, | | | | | | [place] [address] | | | | | | | [...] | | | performed at [facility], [address] | | LAB | | | | Janna Jeffrey, | | | | | | [place] [address] | | | | + + + [...] | | | performed at [facility], [address] | | LAB | | | | Janna Jeffrey, | | | | | | [place] [address] | | | | + + + [...] | | | | at [facility], [address] | | | | | | [facility], | | | | | | [place] [address] | | | | + + + [...] | | | | | performed at [facility];[address] | | | | | | [address] Jeffrey;[place], [place] | | | | | | [address] | | | | + + + [...] | | | Patient | performed at [facility];[address] | | LAB | | | | Ishaan Jeffrey;[place] | | | | | | [address] | | | | + + + [...] | | | | | | ACUTE OR Testing | | | | | | performed at [facility] | | | | | | [address];[place], [place] | | | | | | [address] | | | | + + + [...] at | | | | | | [facility];[address] [facility] | | | | | | [address];[place] [address] | | | | + + + [...] | | | | | performed at [facility];[address] | | | | | | [address] Jeffrey;[place], [place] | | | | | | [address] | | | | + + + [...] | | | | | | ACUTE OR Testing | | | | | | performed at [facility];[address] | | | | | | [address];[place], [place] | | | | | | [address] | | | | + + + [...] | | LAB | | | | [facility];[address] | | | | | | [address];[place] [address] | | | | + + + [...] EXTERNAL | | | | performed at [facility];[address] | | LAB | | | | [address];[place], [place] | | | | | | [address] | | | | + + + [...] LAB | | | | performed at [facility] | | | | | | [address] [facility];[place], [place] | | | | | | [address] | | | | + + + [...] | | | | | | at [facility];[address] | | | | | | [address];[place] [address] | | | | + + + [...] 1:33AM | | | Referring Provider Line: [phone] ID: [id number] | | + + + [...] 2017 | | 1:33AM Referring Provider Line: [phone] [id number]: [id number] | | | |FINDINGS: | [...] 16 2017 1:33AM Referring Provider Line: [phone] ID: [id number] | + + ECG 12 [...] + + | [facility] Epic environment | EXTERNAL LAB [...] | | | | | | ACUTE OR Testing | | | | | | performed at [facility];[address] | | | | | | Ishaan Jeffrey;[place] | | | | | | [address] | | | | + + + [...] | | | Patient | performed at [facility];[address] | | LAB | | | | [address];[place], [place] | | | | | | [address] | | | | + + + [...] | | | Patient | performed at [facility];[address] | | LAB | | | | [address];[place], [place] | | | | | | [address] | | | | + + + [...] RESULTS | | | | | | VERIFIEDDEMETRI/CAROLA Yang AT | | | | | | 1522 BY SALTesting | | | | | | performed at [facility];[address] | | | | | | Ish[address] Jeffrey;[place], [place] | | | | | | [address] | | | | + + + [...] | | | Patient | performed at [facility];[address] | | LAB | | | | [address];[place], [place] | | | | | | [address] | | | | + + + [...] | | | | | performed at [facility];[address] | | | | | | [address];[place], [place] | | | | | | [address] | | | | + + + [...] | | | | at [facility], [address] | | | | | | [facility], | | | | | | [place] [address] | | | | | |Testing performed at [facility], [address] [place] [facility] [place] [address] | | | | | | | [...] | | | performed at [facility], [address] | | LAB | | | | Janna Jeffrey, | | | | | | [place] [address] | | | | + + [...] | | | performed at [facility], [address] | | LAB | | | | [facility], | | | | | | [place] [address] | | | | + + + [...] | | | | | | [place] [address] | | | | + + + [...] | | | Random | performed at [facility] | | LAB | | | | [address];[place], [place] | | | | | | [address] | | | | + + + [...] | | | Patient | performed at [facility];[address] | | LAB | | | | [address];[place], [place] | | | | | | [address] | | | | + + + [...] | | | Basophils | performed at [facility];[address] | K/uL | LAB | | | | [address];[place] | | | | | | [address] | | | | + + + [...] EXTERNAL | | | | performed at [facility];[address] | | LAB | | | | Ishaan Jeffrey;[place] | | | | | | [address] | | | | + + + [...] EXTERNAL | | | | performed at [facility];[address] | | LAB | | | | [address] Jeffrey;[place], [place] | | | | | | [address] | | | | + + + [...] | | | | | | BY AskYouREAD BACK RESULTS | | | | | | VERIFIEDTesting | | | | | | performed at [facility];[address] | | | | | | [address];[place], [place] | | | | | | [address] | | | | + + + [...] | | | | | | at [facility];[address];[place] [address] | | | | + + + [...] | | | Patient | performed at [facility];[address] | | LAB | | | | [address] Jeffrey;[place], [place] | | | | | | [address] | | | | + + + [...] | | | Patient | performed at [facility];8 | | LAB | | | | Ishaan Jeffrey;[place] | | | | | | [address] | | | | + + + [...] | | | | TC, [address] [facility] | | | | | | [place] | | | | | | [address] | | | | + + + [...] | | | | | [place] [address] | | | | + + + [...] | | | performed at [facility], [address] | | LAB | | | | Janna Jeffrey, | | | | | | [place] [address] | | | | + + + [...] Jeffrey, | | | | | | [place] [address] | | | | + + + [...] | | | Patient | performed at [facility] | | LAB | | | | [address] [facility];[place], [place] | | | | | | [address] | | | | + + + [...] | | | Patient | performed at [facility];[address] | | LAB | | | | [address];[place], [place] | | | | | | [address] | | | | + + + [...] | | | | | MANAS IN [facility] AT | | | | | | 0946 BY LGJTesting | | | | | | performed at [facility];[address] | | | | | [address];[place], [place] | | | | | | [address] | | | | + + + [...] | | | Patient | performed at [facility];[address] | | LAB | | | | Ishaan Jeffrey;[place] | | | | | | [address] | | | | + + + [...] | Basophils | performed at [facility], [address] | K/uL | LAB | | | | Janna Font[address], | | | | | | [place] [address] | | | | + + + [...] | | | performed at [facility], [address] | | LAB | | | | Janna Jeffrey, | | | | | | [place] [address] | | | | + + + [...] | | | performed at [facility], [address] | | LAB | | | | Janna Jeffrey, | | | | | | [place] [address] | | | | + + + [...] | | | | at [facility], [address] | | | | | | Janna Jeffrey, | | | | | | [place] [address] | | | | + + + [...] | | | Patient | performed at [facility];[address] | | LAB | | | | Ishaan Jeffrey;[place] | | | | | | [address] | | | | + + + [...] at | | | | | | [facility];[address] [facility] | | | | | | [facility];[place] [address] | | | | + + + [...] 10/07/2017 and 10/09/2017 | | | PRIMARY WATCHER AUTOMAT LONG GOODS: Jimenez Garnica MD, PhD, [facility] OPERATIONS: | | | Limited ultrasound for [...] wire | | | for a 6 Bahraini 35 cm sheath which was advanced to [...] subclavian diameter stents | | | with yazidism of flow. The wire was left in [...] support wire and exchanged to an 816 Bahraini peel-away sheath. The | | | wire [...] | | innominate venous stents, there is yazidism of vigorous flow with | | | [...] STUDIES: 10/07/2017 | | and 10/09/2017 PRIMARY WATCHER AUTOM[employer] GOODS: Jimenez Garnica MD, PhD, [facility] OPERATIONS:Limited | [...] exchanged over a wire for a 6 Bahraini 35 cm sheath which was advanced to | | the level of the subclavian occlusion. Patient was heparinized. The occlusion was | | crossed with an angled glide catheter and wire. Next multiple 10 mm angioplasty balloons | | were used for sequential and repeated prolonged dilation of the 14 mm innominate and 12 | | mm subclavian diameter stents with yazidism of flow. The wire was left in [...] support wire and exchanged to an 816 Bahraini peel-away sheath. The wire was exchanged to [...] subclavian and innominate venous stents, there is yazidism of vigorous flow with no | | [...] 10/07/2017 and 10/09/2017 | | | PRIMARY WATCHER [employer]: Jimenez Garnica MD, PhD, [facility]PVI OPERATIONS: | [...] wire | | | for a 6 Bahraini 35 cm sheath which was advanced to [...] subclavian diameter stents | | | with yazidism of flow. The wire was left in [...] support wire and exchanged to an 816 Bahraini peel-away sheath. The | | | wire [...] | | innominate venous stents, there is yazidism of vigorous flow with | | | [...] STUDIES: 10/07/2017 | | and 10/09/2017 PRIMARY WATCHER [employer] GOODS: Jimenez Garnica MD, PhD, [facility]PVI OPERATIONS:Limited | [...] exchanged over a wire for a 6 Bahraini 35 cm sheath which was advanced to | | the level of the subclavian occlusion. Patient was heparinized. The occlusion was | | crossed with an angled glide catheter and wire. Next multiple 10 mm angioplasty balloons | | were used for sequential and repeated prolonged dilation of the 14 mm innominate and 12 | | mm subclavian diameter stents with yazidism of flow. The wire was left in [...] support wire and exchanged to an 816 Bahraini peel-away sheath. The wire was exchanged to [...] subclavian and innominate venous stents, there is yazidism of vigorous flow with no | | [...] | | | Fingerstick | performed at [facility];[address] | | LAB | | | | [address];[place], [place] | | | | | | [address] | | | | + + + [...] | | | Patient | performed at [facility];[address] | | LAB | | | | Ishaan Jeffrey;[place] | | | | | | [address] | | | | + + + [...] | Basophils | performed at [facility], [address] | K/uL | LAB | | | | Janna Jeffrey, | | | | | | [place] [address] | | | | + + + [...] | | | performed at [facility], [address] | | LAB | | | | Janna Jeffrey, | | | | | | [place] [address] | | | | + + + [...] | | | | | [place] [address] | | | | + + + [...] | | | | at [facility], [address] | | | | | | [facility], | | | | | | [place] [address] | | | | + + + [...] at | | | | | | [facility];[address];[place] [address] | | | | + + + [...] | | | Fingerstick | performed at [facility];[address] | | LAB | | | | Ish[address] Jeffrey;[place], [place] | | | | | | [address] | | | | + + + [...] | | | Fingerstick | performed at [facility];[address] | | LAB | | | | Ishaan Jeffrey;[place] | | | | | | [address] | | | | + + + [...] | | | Patient | performed at [facility];[address] | | LAB | | | | [address];[place], [place] | | | | | | [address] | | | | + + + [...] | | | Fingerstick | performed at [facility];[address] | | LAB | | | | Ishaan Jeffrey;[place] | | | | | | [address] | | | | + + + [...] | | | S AT 0705 BY AskYouREAD BACK | | | | | | RESULTS VERIFIEDTesting | | | | | | performed at [facility];[address] | | | | | | [address];[place], [place] | | | | | | [address] | | | | + + + [...] | Basophils | performed at [facility], [address] | K/uL | LAB | | | | Janna Jeffrey, | | | | | | [place] [address] | | | | + + + [...] | | | performed at [facility], [address] | | LAB | | | | Janna Jeffrey, | | | | | | [place] [address] | | | | + + + [...] | | | | | [place] [address] | | | | + + + [...] | | | | at [facility], [address] | | | | | | Janna [facility], | | | | | | [place] [address] | | | | + + + [...] | | | Fingerstick | performed at [facility];[address] | | LAB | | | | [address];[place], [place] | | | | | | [address] | | | | + + + [...] | | | Fingerstick | performed at [facility];[address] | | LAB | | | | [facility] [facility];[place], [place] | | | | | | [address] | | | | + + + [...] | | | Fingerstick | performed at [facility];[address] | | LAB | | | | Ishaan Jeffrey;[place], [place] | | | | | | [address] | | | | + + + [...] | angioplasty and fibrin sheath stripping with yazidism of flow. | | | Replacement of [...] 10/07/2017 and others | | | PRIMARY WATCHER AUTOM[employer] GOODS: Jimenez Garnica MD, PhD, [facility] OPERATIONS: | | | 1. Replacement of [...] | | fashion about the left neck. Computer Drafter fluoroscopic image was obtained | | | [...] | | was removed and a 11 Bahraini sheath was placed. Venogram imaging the | [...] confluence. Follow-up venogram | | | demonstrated yazidism of vigorous flow with some AP attenuation [...] | | | Following interventions, there is yazidism of flow through the left | | [...] images 10/07/2017 and others PRIMARY | | WATCHER AUTOMAT LONG GOODS: Jimenez Garnica MD, PhD, [facility] OPERATIONS:1. Replacement [...] | usual fashion about the left neck. Computer Drafter fluoroscopic image was obtained showing | | [...] was removed and a 11 | | Bahraini sheath was placed. Venogram imaging the left [...] innominate | | confluence. Follow-up venogram demonstrated yazidism of vigorous flow with some AP | [...] | | occlusion. Following interventions, there is yazidism of flow through the left | | [...] and fibrin sheath stripping | | with yazidism of flow. Replacement of temporary left internal [...] Discussed with Dr. Soria. Electronically signed by Jiemnez Garnica MD on | | 10/09/2017 9:17 [...] | | | Fingerstick | performed at [facility];[address] | | LAB | | | | [address];[place], [place] | | | | | | [address] | | | | + + + [...] | Basophils | performed at [facility], [address] | K/uL | LAB | | | | Janna Jeffrey, | | | | | | [place] [address] | | | | + + + [...] | | | performed at [facility], [address] | | LAB | | | | Janna Jeffrey, | | | | | | [place] [address] | | | | + + + [...] | | | | | [place] [address] | | | | + + + [...] | | | | at [facility], [address] | | | | | | [facility], | | | | | | [place] [address] | | | | + + + [...] EXTERNAL | | | | performed at [facility];[address] | | LAB | | | | Ish[address] Jeffrey;[place] | | | | | | [address] | | | | + + + [...] | | | Patient | performed at [facility];[address] | | LAB | | | | Ishaan Jeffrey;[place] | | | | | | [address] | | | | + + + [...] | | | | | performed at [facility] | | | | | | [facility] [facility];[place], [place] | | | | | | [address] [...] | | | Fingerstick | performed at [facility];[address] | | LAB | | | | [address];[place], [place] | | | | | | [address] | | | | + + + [...] rotator cuff | | | impingement Low zsaeux-zl-rjxzh ratio renders is a low sensitivity | [...] to rotator cuff impingement Low | | nwkedy-uq-wxjuq ratio renders is a low sensitivity examination. [...] | | | Fingerstick | performed at [facility];[address] | | LAB | | | | [address];[place], [place] | | | | | | [address] | | | | + + + [...] | | | Fingerstick | performed at [facility];[address] | | LAB | | | | [address];[place], [place] | | | | | | [address] | | | | + + + [...] + + | Historically converted procedure [facility] Epic environment | EXTERNAL LAB [...] | | | Fingerstick | performed at [facility];[address] | | LAB | | | | [address];[place], [place] | | | | | | [address] | | | | + + + [...] at | | | | | | [facility], [address] [place] [address] | | | | | | [place] | | | | | | [address] | | | | + + + [...] | | | | TCL, [address] | | | | | | [place] | | | | | | [address] | | | | + + + [...] | | | performed at [facility], [address] | | LAB | | | | Janna Jeffrey, | | | | | | [place] [address] | | | | + + + [...] | | | performed at [facility], [address] | | LAB | | | | Janna Jeffrey, | | | | | | [place] [address] | | | | + + + [...] + + | Hemoglobin | 5.9Comment: The Vietnamese | 4.0 - 6.0 % | EXTERNAL [...] | | | | | performed at [facility], [address] | | | | | | [facility], | | | | | | [place] [address] | | | | + + [...] | | | | at [facility], [address] | | | | | | Janna Po, | | | | | | [place] [address] | | | | + + + [...] | | | Fingerstick | performed at [facility];[address] | | LAB | | | | [address];[place] | | | | | | [address] | | | | + + + [...] | | | Fingerstick | performed at [facility];[address] | | LAB | | | | [address] Jeffrey;[place] | | | | | | [address] | | | | + + + [...] | | | Fingerstick | performed at [facility];8 | | LAB | | | | [address];[place], [place] | | | | | | [address] | | | | + + + [...] | | | Fingerstick | performed at [facility];[address] | | LAB | | | | [place] Jeffrey;[place] | | | | | | [address] | | | | + + + [...] | | | Fingerstick | performed at [facility];[address] | | LAB | | | | [address];[place], [place] | | | | | | [address] | | | | + + + [...] | | | Over the microwire a 5-Bahraini micro- sheath was placed. A single | [...] was serially | | | dilated to 12.-Bahraini. A 20-cm Mahurkar 12-Bahraini temporary | | | hemodialysis catheter was [...] a microwire advanced. Over the microwire a 5-Bahraini micro- sheath was | | placed. A [...] cava. The tract was serially dilated to 12.-Bahraini. A | | 20-cm Mahurkar 12-Bahraini temporary hemodialysis catheter was placed. The wire [...] CT arm 10/07/2017 PRIMARY | | | WATCHER AUTOMAT LONG GOODS: Jimenez Garnica MD, PhD, VI OPERATIONS: 1. Right | | | arm [...] | | without any color flow. A [employer] needle was advanced under | | | [...] STUDIES: CT arm | | 10/07/2017 PRIMARY WATCHER AUTOMAT LONG GOODS: Jimenez Garnica MD, PhD, RPVI OPERATIONS:1. Right [...] | collection without any color flow. A Yueh centesis needle was advanced under ultrasound | | [...] EXTERNAL | | | | performed at [facility];[address] | | LAB | | | | [address];[place] | | | | | | [address] | | | | + + + [...] | | | Random | performed at [facility] | | LAB | | | | Ishaan Jeffrey;[place], [place] | | | | | | [address] | | | | + + + [...] | | | PCRAbnormal Testing performed at [facility];[address] [place] [address];[place] [address] | | + + + + +---------+ [...] Oct 07 2017 4:43AM Referring Provider Line: [phone] | | | ID: [id number] | | [...] | | 2017 4:43AM Referring Provider Line: [phone] ID: [id number] | |IMPRESSION: | | | [...] 07 2017 4:43AM Referring Provider Tg e: [phone] ID: [id number] | + -+ HISTORICAL LAB [...] | | | | | | ACUTE OR Testing | | | | | | performed at [facility];[address] | | | | | | [facility];[place], [place] | | | | | | [address] | | | | + + + [...] EXTERNAL | | | | performed at [facility] | | LAB | | | | [address] Jeffrey;[place] | | | | | | [address] | | | | + + + [...] EXTERNAL | | | | performed at [facility] | | LAB | | | | [facility];[place], [place] | | | | | | [address] | | | | + + + [...] | | | | | ONLY, -COMPUTER ([id number]), | | | | | | staff editor Dax Self | | | | | | Aniket ([id number]) on 10/08/2017 | | | | | | 3:41:47 AM | | | | + + + + + + + + | Specimen | + + | | + + + + + | Narrative | Performed At | + + + | Historically converted procedure from [facility] environment | EXTERNAL LAB | + [...] Conversion - 02/04/2019 8:18 AM PDT This is [...] | Anemia in ESRD (end-stage renal disease) (FORMERLY [facility]) Anemia in chronic kidney disease | + [...]
--- OUTSIDE RECORDS SUMMARY | ~2020-03-11 | XMS | Encounter Summary ---
Demographics + + + | Address | [address] | | | [place] [address] | + + + | Home Phone [...] Team Providers + +------+ + | Care Automotive Lot Attendant Name | Role | Phone | [...] [address] | | | | | | [place] | | | | | | [address] | | | | | | [phone] | | | | | | | [...] Rd | | | | | | [place] | | | | | | [address] | | | | | | [phone] | | | | | | | | +--------+ + + + + | 03/23/ | Appointment | Radiology | Taiwo Marin | | | 2019 | | | MD [facility] [address] | | | | | | [address] | | | | | | [place], [place] | | | | | | [address] | | | | | | [phone] | | | | | | | | +--------+ + + + + | 03/23/ | Office | Social Work | Lina Rodriguez, | | | 2019 | Visit | | [facility] [address] | | | | | | [address] | | | | | | [place], [place] | | | | | | [address] | | | | | | [phone] | | +--------+ + + + + | 03/24/ | Telephone-S | Nutrition | Debby Salvador, | | | 2019 | cheduled | | [address] | | | | | | [address] | | | | | | [place], [place] | | | | | | [address] | | | | | | [phone] | | | | | | | | +--------+ + + + + documented as of this encounter Visit Diagnoses Not on filedocumented in this encounter"
--- OUTSIDE RECORDS SUMMARY | ~2020-03-11 | XMS | Encounter Summary ---
Demographics + + + | Address | [address] | | | [place] [address] | + + + | Home Phone [...] Team Providers + +------+ + | Care Hospitality Housekeeper Name | Role | Phone | + +------+ + | Andry Deng DO | PCP | | + +------+ + Reason for Visit +--------+ + | Reason | Comments | +--------+ + | Other | Shawn team letter 02/03/20 | +--------+ + Encounter Details +--------+ + + + + | Date | Type | Department | Care Team | Description | +--------+ + + + + | 02/03/ | Documentati | [facility] | Pete, | Other ([employer] | | 2020 | on | NEPHROLOGY MALATHI | Markus Riggins | team letter | | | | [address] | Swim Instructor | 02/03/20) | | | | [address] [place] | | | | | | [address] | | | | | | [phone] | | | +--------+ + + + [...]
--- OUTSIDE RECORDS SUMMARY | ~2020-03-11 | XMS | Encounter Summary ---
Demographics + + + | Address | [address] | | | [place] [address] | + + + | Home Phone [...] Providers + +------+ + | Care Choir Leader Name | Role | Phone | + +------+ + PCP | Unavailable | + +------+ + Encounter Details +--------+ + + + + | Date | Type | Department | Care Team | Description | +--------+ + + + + | 01/30/ | Hospital | [facility] | Conversion | Pain | | 2013 | Encounter | CONVERSION [address] | Transaction, | | | | | [address] | Provider Unknown | | | | | [place], [place] | [phone] | | | | | [address] | | | | | | [phone] | | | +--------+ + + + [...] Palm Conversion - 02/13/2019 4:30 PM PDT This is a non-reportable procedure | | without a radiologist report and isused for image storage only | + + documented in this encounter Visit Diagnoses + + | Diagnosis | + + | Pain Generalized pain | + + documented in this encounter"
--- OUTSIDE RECORDS SUMMARY | ~2020-03-11 | XMS | Encounter Summary ---
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 PRESUMPTIVE NEGATIVE Comment: Detection of 027 NAP1 BI strains of C. difficile is presumptive and for epidemiological purposes and not intended to guide or monitor treatment for C. difficile infections. Testing performed at [facility];[address] [place] [address] 57389 Fecal occult blood (in house) [[id number]] Collected:07/07/121750 Order Status:Completed Updated:07/07/12 1828 Specimen Information:Stool Fecal Occult Blood NEGATIVE Comment: Testing performed at [facility];[address] [place] [address] 87571 MRSA by PCR [[id number]] Collected:07/07/12 1048 Order Status:Completed Updated:07/07/12 1211 Specimen Information:Nasopharyngeal / Nasopharyngeal Culture SOURCE NARES(NOSE) Comment: Testing performed at [facility];[address] [place] [address] 41976 RESULT NEGATIVE Comment: Testing performed at [facility];[address] [place] [address] 92888 Catheter tip culture Abnormal Status: Preliminary result MyChart: Not Released Component Value Flag Specimen Description OTHER DIALYSIS CATHETER TIP Specimen Description Testing performed at [facility];[address] [place] [address] 77273 CULTURE GREATER THAN 15 CFU STAPHYLOCOCCUS AUREUS SUSCEPTIBILITY TO FOLLOW A CULTURE Testing performed at [address] [address] REPORT STATUS PENDING Order Details View Encounter [...] RIGHT KNEE Specimen Description Testing performed at [facility];[address] [place] [address] 45017 GRAM STAIN WBC'S SEEN GRAM NEGATIVE COCCI ON CYTO SPIN SLIDE GRAM STAIN PHONED TO DR RAZA AT 0045 BY LJ READBACK GRAM STAIN REVIEW OF SMEAR BY MICROBIOLOGY SHOWS THE FOLLOWING: NO ORGANISMS SEEN GRAM STAIN Testing performed at [address] [address] CULTURE 1+ STAPHYLOCOCCUS AUREUS SUSCEPTIBILITY TO FOLLOW A CULTURE Testing performed at [address] [address] REPORT STATUS PENDING Order Details View Encounter Lab and Collection Details Routing Result History Specimen Collected: 07/06/12 11:08 PM Last Resulted: 07/08/12 6:23 PM Encounter View Encounter Result Information Abnormal Status: Preliminary result (07/08/2012 6:23 PM) Provider Status: Ordered FLUID CULT W/GRAM STAIN Status: Preliminary result MyChart: Not Released Component Value Specimen Description SYNOVIAL FLUID R KNEE Specimen Description Testing performed at [facility];[address] [place] [address] 57164 SPECIAL REQUESTS [facility] TO DO GRAM SPECIAL REQUESTS Testing performed at [facility];[address] [place] [address] 25687 GRAM STAIN 2+ WBC'S SEEN GRAM STAIN NO ORGANISMS SEEN GRAM STAIN Testing performed at [facility];[address] [place] [address] 289[address] CULTURE CULTURE IN PROGRESS CULTURE Testing performed at [facility], [address] [place] [address] REPORT STATUS PENDING Order Details View Encounter Lab and Collection Details Routing Result History Specimen Collected: 07/07/12 6:39 PM Last Resulted: 07/08/12 4:08 PM Encounter View Encounter Result Information Status Preliminary result (07/08/2012 4:08 PM) Provider Status: Ordered Hepatitis B surface antigen Status: Final result MyChart: Not Released Value Range HEP B SURFACE AG NON REACTIVE NON REACTIVE Comments: Testing performed at [facility], [address] [place] [address] Lab Flowsheet Order Details View Encounter Lab and Collection Details Routing Result History Specimen Collected: 07/07/12 3:13 PM Last Resulted: 07/07/12 6:37 PM Encounter View Encounter Result Information Status Final result (07/07/2012 6:37 PM) Provider Status: Ordered Radiology Results (last 7 days) Procedure Component Value Units Date/Time X-ray chest 1 view [[id number]] Collected:07/07/12 1630 Order Status:Completed Updated:07/07/12 1636 Narrative: [...] 2. No pneumothorax. hip left without contrast [[id number]] Resulted:07/07/12 1614 Order Status:Completed Updated:07/07/12 1615 Narrative: [...] 2012 4:14PM MRI hip right without contrast [[id number]] Resulted:01/14/13 1614 Order Status:Completed Updated:07/07/121613 Narrative: MRI OF THE [...] 07 2012 4:14PM X-ray knee limited right [[id number]] Collected:07/07/1245 Order Status:Completed Updated:07/07/1253 Narrative: HISTORY: Right knee pain. COMPARISON: None. [...] the medial femoral condyle. X-ray ankle left [[id number]] Collected:07/07/1244 Order Status:Completed Updated:07/07/12850 Narrative: HISTORY: Left ankle pain. COMPARISON: None. TECHNIQUE: AP, oblique, lateral films left ankle. FINDINGS: There is moderate diffuse soft tissue swelling about the ankle. Ankle mortise appears inta ct. No ankle fracture is seen. Arterial calcification extends into the distal foot. IMPRESSION: 1. Moderate soft tissue swelling about the ankle, without fracture. Chest PA and Lateral [[id number]] Collected:07/07/12827 Order Status:Completed Updated:07/07/12836 Narrative: CAROL POTTER [...] fied. brain wo contrast and MRA head [[id number]] Resulted:07/07/12 0735 Order Status:Completed Updated:07/07/1236 Narrative: MRI OF THE BRAIN WITHOUT CONTRAST PLUS OHKAY OWINGEH OF YANG MRA 07/06/2012 HISTORY: Staphylococcal bacteremia. Clinical concern for septic embolization and stroke. COMPARISON: None. TECHNIQUE: 3-D mbal-td-kqwmrc mechoopda of Yang MRA with multiprojectional 3-D MIP [...] matter disease if any is minimal. The mechoopda of Yang MRA shows no evidence for high-grade stenosis, central vessel occlusio n or mechoopda of Yang saccular aneurysm. Posterior communicating arteries [...] anges or metabolic process. 3. Unremarkable screening mechoopda of Yang MRA. 4. Maxillary sinus mucosal [...] Status: Full Code ELSIE LERNER MD 07/09/2012 Al Ferrer DO - 07/09/2012 9:21 AM PST Progress Notes by Al Coon DO at 07/09/12920 Author: Al Coon DO Service: (none) Author Type: Physician Filed: 07/09/12922 Date of Service: 07/09/12920 Status: Signed Calender Machine Operator Helper: Al Coon DO (Physician) [facility] Service: Hospitalist Progress Note Hospital Day: [...] mg Intravenous See Admin Instructions vitamin B nzwjmmh-B-eqlvc acid 1 tablet Oral Daily with breakfast [...] Progress Notes by Oskar Meyer MD at 07/09/12 0840 Author: Oskar Meyer MD Service: Vascular Surgery Author Type: Physician Filed: 07/09/12 0842 Date of Service: 07/09/12839 Status: Signed Calender Machine Operator Helper: Oskar Meyer MD (Physician) Patient tentatively on schedule for superficialization of left brachibasilic fistula on Sat pending negative blood cultures drawn yesterday. I will also place a new right IJ perma cath at that time. Will need to be NPO after midnight on . Oskar Meyer MD 07/09/2012 Chela Lima [facility] - 07/09/2012 8:14 AM PST Progress Notes by Chela Varela RPH at 07/09/12813 Author: Chela Varela RPH Service: (none) Author Type: Pharmacist Filed: 07/09/12816 Date of Service: 07/09/12813 Status: Signed Calender Machine Operator Helper: Chela Varela RPH (Pharmacist) Clinical Pharmacy Note - Renal Dose Adjustment Vancomycin dose was given ~1200 yesterday (not charted, but [facility] Vanco random level was [...] Service: Nephrology Author Type: Physician Filed: 08/19/12 1858 Date of Service: 07/08/122219 Status: Signed Calender Machine Operator Helper: Juan Timmons MD (Physician) [facility] Service: NEPHROLOGY progress Note Carol Potter 47 y.o. [id number] male [facility] Hospital Day: LOS: 2 days The patient [...] EGD; Surgeon: John Singleton MD; Location: [facility]; Se rvice: Gastroenterology; Laterality: N/A; Av fistula placement 05/06/2012 Procedure: AV FISTULA; Surgeon: Oskar Meyer MD; Location: [facility] OR; Service: Vascul ar; Laterality: Left; [...] 20 mg by mouth nightly. ergocalciferol (DRISDOL) 41876 UNITS capsule Take 1 capsule by mouth [...] by mouth daily. folic acid-vitamin b complex-vitamin v-srezhsxi-igio (DIALYVITE) 3 MG TABS Take 1 table [...] nightly. Not sure of dosage vitamin B xtgcqou-Q-kxdbf acid (SUPER B VITAMINS) 0.8 MG TABS [...] BIOLOGICAL; 2 STEP KIDSUNEMPLOYED BEFORE WORKED AT [employer] IN [employer] NONE ETOH QUIT 15 YEARS AGODRUGS: quit [...] mg Intravenous See Admin Instructions vitamin B bpdajgd-O-secvx acid 1 tablet Oral Daily with breakfast [...] 07/08/122001 Date of Service: 07/08/122001 Status: Signed Calender Machine Operator Helper: Carmina Lara RPH (Pharmacist) Clinical Pharmacy Note: Renal Monitoring Carol Potter 47 y.o. male Ht Readings from Last 1 Encounters: 07/06/12 1.702 m (5' 7") Wt Readings from Last 1 Encounters: 07/08/12 73.9 kg (162 lb 14.7 oz) Patient is on hemodialysis - Usual schedule: Mon-Wed-Fri Pharmacy dosing for renal function per Dr. [...] accordingly. Carmina Lara PharmD 07/08/2012 7:59 PM Al Zavala DO - 07/08/2012 6:09 PM PSTFormatting of this note might be different from the betina givivian. Progress Notes by Al Coon DO at 07/08/12 1804 Author: Al Coon DO Service: (none) Author Type: Physician Filed: 07/09/12 0855 Date of Service: 07/08/121808 Status: Addendum Calender Machine Operator Helper: Al Coon DO (Physician) Related Notes: Original Note by Al Coon DO (Physician) filed at 07/09/12 0855 [facility] Service: Hospitalist Progress Note Hospital Day: [...] mg Intravenous See Admin Instructions vitamin B xuwfatw-O-vimzz acid 1 tablet Oral Daily with breakfast DISCONTD: clindamycin 600 mg Intravenous Ocean Import Representative to OR DISCONTD: gentamicin 1.5 mg/kg (Adjusted) [...] C) Axillary 79 16 89 % - 07/07/125 126/55 mmHg - - 80 - 98 % - 07/07/122029 128/60 mmHg - - - - - - 07/07/122014 127/59 mmHg - - - - 98 % - 07/07/121999 125/55 mmHg - - 80 - 98 % - 07/07/121944 126/59 mmHg - - 80 - 98 % - 07/07/121929 128/58 mmHg - - 78 - 98 [...] Inpatient Al Coon DO 07/08/2012 6:12 PM oltan Garcia ARN P - 07/08/2012 4:11 PM PST Progress Notes by Zoltan Garcia RN at 07/08/12 1611 Author: Zoltan Garcia RN Service: (none) Author Type: Registered Nurse Filed: 07/08/12 1611 Date of Service: 07/08/12 1611 Status: Signed Calender Machine Operator Helper: Zoltan Garcia RN (Registered Nurse) VSS. Pt. Resting quietly in bed. No acute observations. Will continue monitoring. @ bedside. Pt. Had HD today with 2L off. Pt. Had bed bath and two bowel movements, large, l oose. onversion Trans action, Provider Unknown - 07/08/2012 1:56 PM PST Progress Notes by Clari Vazquez RN at 07/08/12 5353 Author: Clari Vazquez RN Service: Wound/Ostomy Care Author Type: Registered Nurse Filed: 07/08/12 8563 Date of Service: 07/08/12 1356 Status: Addendum Calender Machine Operator Helper: Clari Vazquez RN (Registered Nurse) Related Notes: Original Note by Clari Vazquez RN (Registered Nurse) filed at 4003 Patient seen today by business office specialist for evaluation due to a documented pressure [...] Progress Notes by Kelley Toussaint RPH at 07/08/128 Author: Kelley Toussaint RPH Service: (none) Author Type: Pharmacist Filed: 07/08/121328 Date of Service: 07/08/121327 Status: Signed Calender Machine Operator Helper: Kelley Toussaint RPH (Pharmacist) Vancomycin Monitoring Clinician Dosing: Pharmacy Dosing Recent Trough level: N/A Plan per protocol: HD today, ended ~1200 Patient getting vanco 750 mg IV x 1. Order trough levels:07/08 @ 1600 (4 hours post HD) 07/08/2012 1:27 PM Pharmacist: Kelley Toussaint onver quique Transaction, Provider Unknown - 07/08/2012 9:50 AM PST Progress Notes by Erin Varela RN at 07/08/12 4784 Author: Erin Varela RN Service: Infectious Disease Author Type: Registered Nurse Filed: 07/08/1251 Date of Service: 07/08/12949 Status: Signed Calender Machine Operator Helper: Erin Varela RN (Registered Nurse) Patient currently has a draining wound. Nasal PCR for MRSA is negative but Contact Isolati on is required until all pending cultures are final and negative for MRSA. Thank you. Erin Varela RN, BA, Director Of Agriculture Elsie Yang - 07/08/2012 9:00 AM PST Progress Notes by Elsie Lerner MD at 07/08/12 09 Author: Elsie Lerner MD Service: (none) Author Type: Physician Filed: 07/08/12 6879 Date of Service: 07/08/12899 Status: Signed Calender Machine Operator Helper: Elsie Lerner MD (Physician) [facility] Service: Infectious Disease Progress Note Hospital [...] In April , he was hospitalized at [facility] for febrile illness with blood cultures in [...] c an appreciate light. Blood cultures from [facility] in [place] are now reported as positive for MSSA. [...] mg Intravenous See Admin Instructions vitamin B yfdwfsz-H-skrbd acid 1 tablet Oral Daily with breakfast DISCONTD: clindamycin 600 mg Intravenous Ocean Import Representative to OR DISCONTD: meperidine 50 mg Intravenous [...] VANCOMYCIN,RANDOM 29.01 ug/mL Comments: Testing performed at [facility];[address] [place] [address];[place] [address] Lab Flowsheet Order Details View Encounter Lab and Collection Details Routing Result History Specimen Collected: 07/07/12 1:43 PM Last Resulted: 07/07/12 2:11 PM Encounter View Encounter Result Information Status Final result (07/07/2012 2:11 PM) Provider Status: Ordered Gentamicin level, random Abnormal Status: Final result MyChart: Not Released Value Flag Range GENTAMICIN, RANDOM 3.6 L 5.0 - 10.0 ug/mL Comments: Testing performed at [facility];[address] [place] [address];[place] [address] Lab Flowsheet Order Details View Encounter Lab and Collection Details Routing Result History Specimen Collected: 07/07/12 1:43 PM Last Resulted: 07/07/12 2:11 PM Hepatitis B surface antigen Status: Final result MyChart: Not Released Value Range HEP B SURFACE AG NON REACTIVE NON REACTIVE Comments: Testing performed at [facility], [address] [place] [address] Lab Flowsheet Order Details View Encounter Lab [...] R KNEE Specimen Description Testing performed at [facility];[address] [place] [address] 59771 SPECIAL REQUESTS [facility] TO DO GRAM SPECIAL REQUESTS Testing performed at [facility];[address] [place] [address]239 GRAM STAIN 2+ WBC'S SEEN GRAM STAIN NO ORGANISMS SEEN GRAM STAIN Testing performed at [facility];[address] [place] [address] CULTURE PENDING REPORT STATUS PENDING Order Details [...] Units Date/Time Blood culture, 1 of 2 [[id number]] (Abnormal) Collected:07/06/12 1800 Order Status:Completed Updated:07/08/12 1100 Specimen Information:Blood / Blood Specimen Description BLOOD SPECIAL REQUESTS R HAND SPECIAL REQUESTS Result: Testing performed at [facility];[address] [place] [address] GRAM STAIN Result: GRAM POSITIVE COCCI SEEN ON SMEAR OF ANAEROBIC BOTTLE GRAM STAIN Result: CALLED TO LANE/EZEKIEL Villegas ON 07/07/12 AT 1337 BY READBACK GRAM STAIN Result: GRAM POSITIVE COCCI SEEN ON SMEAR OF AEROBIC BOTTLE GRAM STAIN Result: SMEAR RESULTS CALLED TO AND READ BACK BY: SHELL Acosta IN 6RP @ 2155 BY [facility] GRAM STAIN Result: Testing performed at [facility];[address] [place] [address] CULTURE Result: STAPHYLOCOCCUS AUREUS SUSCEPTIBILITY TO FOLLOW (A) CULTURE GROWTH IN TWO OF TWO BOTTLES (A) CULTURE TIME TO DETECTION: 0.78 DAYS CULTURE Result: Testing performed at [facility], [address] [place] [address] REPORT STATUS PENDING Blood culture, 2 of 2 [[id number]] (Abnormal) Collected:07/06/12 1804 Order Status:Completed Updated:07/08/12 1017 Specimen Information:Blood / Blood Specimen Description BLOOD GRAM STAIN Result: GRAM POSITIVE COCCI SEEN ON SMEAR OF AEROBIC BOTTLE GRAM STAIN Result: CALLED TO LANE/ZOLTAN Mccullough ON 07/08/12 AT 1016 BY LL READBACK GRAM STAIN Result: Testing performed at [facility];[address] [place] [address] CULTURE GROWTH IN ONE OF TWO BOTTLES (A) CULTURE WORK UP IN PROGRESS AT MICRO LAB CULTURE Result: Testing performed at [facility];[address] [place] [address] REPORT STATUS PENDING C diff toxin by PCR (TAT 3 hr in house) [[id number]] Collected:07/07/12 175 Order Status:Completed Updated:07/07/12 1904 Specimen Information:Stool / Stool Toxigenic C Difficile NEGATIVE Comment: Testing performed at [facility];[address] [place] [address] 82948 027 NAP1 BI 027 NAP1 BI PRESUMPTIVE NEGATIVE Comment: Detection of 027 NAP1 BI strains of C. difficile is presumptive and for epidemiological purposes and not intended to guide or monitor treatment for C. difficile infections. Testing performed at [facility];[address] [place] [address]190 Fecal occult blood (in house) [[id number]] Collected:07/07/12 1751 Order Status:Completed Updated:07/07/12 1828 Specimen Information:Stool Fecal Occult Blood NEGATIVE Comment: Testing performed at [facility];[address] [place] [address] MRSA by PCR [[id number]] Collected:07/07/12 1048 Order Status:Completed Updated:07/07/12 1211 Specimen Information:Nasopharyngeal / Nasopharyngeal Culture SOURCE NARES(NOSE) Comment: Testing performed at [facility];[address] [place] [address] 77822 RESULT NEGATIVE Comment: Testing performed at [facility];[address] [place] [address] 55701 07/04 Blood cultures from [place] - 3 of 3 bottles - MSSA, [...] 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 [phone] [id number] male [facility] Hospital Day: LOS: 1 day The patient [...] EGD; Surgeon: John Singleton MD; Location: [facility]; Se rvice: Gastroenterology; Laterality: N/A; Av fistula placement 05/06/2012 Procedure: AV FISTULA; Surgeon: Oskar Meyer MD; Location: [facility] MAIN OR; Service: Vascul ar; Laterality: Left; [...] 20 mg by mouth nightly. ergocalciferol (DRISDOL) 25915 UNITS capsule Take 1 capsule by mouth [...] by mouth daily. folic acid-vitamin b complex-vitamin j-aqznrpqc-oasx (DIALYVITE) 3 MG TABS Take 1 table [...] nightly. Not sure of dosage vitamin B yitlpuc-A-ytjhs acid (SUPER B VITAMINS) 0.8 MG TABS [...] BIOLOGICAL; 2 STEP KIDSUNEMPLOYED BEFORE WORKED AT [employer] IN [employer] NONE ETOH QUIT 15 YEARS AGODRUGS: quit [...] mg Intravenous See Admin Instructions vitamin B prkvokj-G-wryzj acid 1 tablet Oral Daily with breakfast DISCONTD: acyclovir 400 mg Oral BID DISCONTD: aminocaproic acid 500 mg Oral Q6H DISCONTD: calcitRIOL 0.25 mcg Oral Nightly DISCONTD: clindamycin 600 mg Intravenous Ocean Import Representative to OR DISCONTD: fish oil-omega-3 fatty acids 2 g Oral Daily DISCONTD: gentamicin 1 mg/kg (Adjusted) Intravenous Q8H DISCONTD: meperidine 50 mg Intravenous Once DISCONTD: omeprazole 20 mg Oral QAM AC DISCONTD: vitamin B zixltot-E-kfrxp acid 1 tablet Oral Daily with breakfast [...] KNEE Specimen Description Value: Testing performed at [facility];[address] [place] [address]243 GRAM STAIN WBC'S SEEN GRAM NEGATIVE COCCI ON CYTO SPIN SLIDE GRAM STAIN PHONED TO DR RAZA AT 0045 BY READBACK GRAM STAIN Value: Testing performed at [facility];[address] [place] [address] CULTURE PENDING REPORT STATUS PENDING BODY FLUID CRYSTAL Collection Time 07/06/12 11:08 PM Component Value Range FLUID CRYSTALS PRESENT BODY FLUID CELL COUNT Collection Time 07/06/12 11:08 PM Component Value Range FLUID TYPE SYNOVIAL FLUID COLOR WHITE APPEARANCE HAZY RBC'S 78320 WBC'S 91426 Neutrophil Count, Fluid 98 LYMPHOCYTES 0 MONOCYTES/MACROPHAGES 2 EOSINOPHILS 0 Mesothelial Cells 0 OTHER CELLS 0 Cells Counted 100 FLUID CULT W/GRAM STAIN Collection Time 07/06/12 11:09 PM Component Value Range Specimen Description SYNOVIAL FLUID LEFT ANKLE Specimen Description Value: Testing performed at [facility];[address] [place] [address];[place] [address] GRAM STAIN WBC'S SEEN NO ORGANISMS SEEN ON CYTOSPIN SLIDE GRAM STAIN PHONED TO DR RAZA AT 0045 BY READBACK GRAM STAIN Value: Testing performed at [facility];[address] [place] [address] CULTURE PENDING REPORT STATUS PENDING POCT GLUCOSE [...] KNEE Specimen Description Value: Testing performed at [facility];[address] [facility];[place] [address] SPECIAL REQUESTS [facility] TO DO GRAM SPECIAL REQUESTS Value: Testing performed at [facility];[address] [place] [address] GRAM STAIN 2+ WBC'S SEEN GRAM STAIN NO ORGANISMS SEEN GRAM STAIN Value: Testing performed at [facility];[address] [place] [address] CULTURE PENDING REPORT STATUS PENDING CYTOLOGY ORDER NOTIFICATION ONLY Collection Time 07/07/12 6:43 PM Component Value Range CYTOLOGY ORDER NOTIFICATION ONLY SEE PATHOLOGY ORDER FOR RESULT. IMAGING: MRI hip right without contrast [[id number]] Resulted:07/06/122307 Order Status:Completed Updated:07/06/122307 Narrative: Preliminary report [...] DISCUSSED IN DETAIL WITH PATIENT/ HOSPITALIST/ dr douglas howe surgeon, ANSWERS ALL QUESTI ONS IN DETAIL, [...] 07/07/121917 Date of Service: 07/07/121911 Status: Signed Calender Machine Operator Helper: Yusra Vallejo RN (Registered Nurse) Pt returned from OR settled back into room. Pt incontinent of stool, sent for O/P as sm kaylie we looking items in stool. Rt knee dressing c/d/i new tep hd cath to lt neck. onver quique Transaction, Provider Unknown - 07/07/2012 4:33 PM PST Progress Notes by Shyanne Campbell RN at 07/07/12 163 Author: Shyanne Campbell RN Service: (none) Author Type: Registered Nurse Filed: 07/07/121636 Date of Service: 07/07/121632 Status: Signed Calender Machine Operator Helper: Shyanne Campbell RN (Registered Nurse) Per radiology, no pneumothorax seen. Okay to use the line. Report called at 1630. onver quique Transaction, Provider Unknown - 07/07/2012 4:15 PM PST Progress Notes by Vaishnavi Mccall RN at 07/07/12 1615 Author: Vaishnavi Mccall RN Service: (none) Author Type: Registered Nurse Filed: 07/07/12 1616 Date of Service: 07/07/12 1615 Status: Signed Calender Machine Operator Helper: Vaishnavi Mccall RN (Registered Nurse) X-ray in pre-op going into room 1. Vaishnavi Mccall RN 07/07/2012. 4:16 PM onver quique Transaction, Provider Unknown - 07/07/2012 4:09 PM PST Progress Notes by Vaishnavi Mccall RN at 07/07/12 1609 Author: Vaishnavi Mccall RN Service: (none) Author Type: Registered Nurse Filed: 07/07/12 1615 Date of Service: 07/07/12 1609 Status: Signed Calender Machine Operator Helper: Vaishnavi Mccall RN (Registered Nurse) Dr. Meyer removed HD cath from R chest. Inserted new HD cath in L upper chest. Drsgs c/d/i. C hest x-ray ordered by Dr. Meyer. LEARNING FACILITATOR still in room with pt. K-rider still infusing without p roblems. Vaishnavi Mccall RN 07/07/2012 4:11 PM onver quique Transaction, Provider Unknown - 07/07/2012 3:38 PM PST Progress Notes by Vaishnavi Mccall RN at 07/07/12 1538 Author: Vaishnavi Mccall RN Service: (none) Author Type: Registered Nurse Filed: 07/07/12 1541 Date of Service: 07/07/12 1538 Status: Signed Calender Machine Operator Helper: Vaishnavi Mccall RN (Registered Nurse) Dr. Meyer into talk with pt. Going to do procedure with HD cath in pre-op room with LEARNING FACILITATOR. Th en will go to OR for I&D of right knee. Pt signed consent with Dr. Meyer. Pt had BM on bed luca n. Pain when turning to L side. 20 meq K-rider infusing. Vaishnavi Mcacll RN 07/07/2012 3:41 PM onver quique Transaction, Provider Unknown - 07/07/2012 3:17 PM PST Progress Notes by Kelley Toussaint RPH at 07/07/121516 Author: Kelley Toussaint RPH Service: (none) Author Type: Pharmacist Filed: 07/07/121516 Date of Service: 07/07/121516 Status: Signed Calender Machine Operator Helper: Kelley Toussaint RPH (Pharmacist) Vancomycin Monitoring Clinician [...] Notes by Duyen Raza MD at 07/07/12 1300 Author: Duyen Raza MD Service: Orthopedic Surgery Author Type: Physician Filed: 07/07/12 5747 Date of Service: 07/07/12 130 Status: Signed Calender Machine Operator Helper: Duyen Raza MD (Physician) [facility] Service: Orthopedic Surgery Progress Note Hospital [...] Notes by Shyanne Benavides RN at 07/07/12 2919 Author: Shyanne Benavides RN Service: (none) Author Type: Rfp Writer Filed: 07/07/12 1247 Date of Service: 07/07/12 1239 Status: Signed Calender Machine Operator Helper: Shyanne Benavides RN (Rfp Writer) CM met with spouse - she is staying in the room with pt. They are from [place] and are co nnected with [facility]. Spouse had concerns re: needing food vouchers (joy lee - she is in touch with her case technician in [place]. For more financial assistance) Provided [...] Progress Notes by Carmina Lara RPH at 07/06/122335 Author: Carmina Lara RPH Service: (none) Author Type: Pharmacist Filed: 07/06/122335 Date of Service: 07/06/122335 Status: Signed Calender Machine Operator Helper: Carmina Lara RPH (Pharmacist) Clinical Pharmacy Note: Renal Monitoring Carol Potter 47 y.o. male Ht Readings from Last 1 Encounters: 07/06/12 1.702 m (5' 7") Wt Readings from Last 1 Encounters: 07/06/12 74.6 kg (164 lb 7.4 oz) Patient is on hemodialysis - usual schedule . Pharmacy dosing for renal function per Dr. [...] 07/06/122207 Date of Service: 07/06/122206 Status: Signed Calender Machine Operator Helper: Carmina Lara RPH (Pharmacist) Clinical Pharmacy Note: Pharmacy Dosing Gentamicin (Conventional Dosing); Day 1 Carol Potter 47 y.o. male Ht Readings from Last 1 Encounters: 07/06/12 1.702 m (5' 7") Wt Readings from Last 1 Encounters: 07/06/12 72.576 kg (160 lb) Summers dosing weight: 68.7 kg Patient is on hemodialysis - usual schedule Sat-Sat-Sat WBC Date Value Range Status 07/06/2012 23.5* 3.8 - 11.0 K/uL Final Testing performed at [facility];[address] [place] [address];[place] [address] INDICATION: Endocarditis Patient received a dose of [...] renal function and adjust accordingly. Carmina Lara PharmOnelia 07/06/2012 10:03 PM onver quique Transaction, Provider Unknown - 07/06/2012 10:03 PM PST Progress Notes by Carmina Lara RPH at 07/06/122202 Author: Carmina Lara RPH Service: (none) Author Type: Pharmacist Filed: 07/06/122202 Date of Service: 07/06/122202 Status: Signed Calender Machine Operator Helper: Carmina Lara RPH (Pharmacist) Clinical Pharmacy Note: Vancomycin Day 1 Pharmacy Dosing Vancomycin per Renal Failure Protocol for Patients on Hemodialysis Carol Myron y.o. male Ht Readings from Last 1 Encounters: 07/06/12 1.702 m (5' 7") Wt Readings from Last 1 Encounters: 07/06/12 72.576 kg (160 lb) WBC Date Value Range Status 07/06/2012 23.5* 3.8 - 11.0 K/uL Final Testing performed at [facility];[address] [place] [address];[place] [address] Usual dialysis schedule: Sat-Sat-Sat INDICATION: Endocarditis First dose of Vancomycin 1250 mg was given 07/06 at 1954. Will continue 750 mg IV after each hemodialysis. Trough monitoring is not necessary at this time. Pharmacy will order levels (with goal 15 to 20 mcg/mL) if deemed necessary and will adjust dose accordingly. Carmina Lara, PharmD 07/06/2012 10:01 PM docume nted in this encounter H&P Notes Ediht Díaz MD - 07/06/2012 8:48 PM PSTFormatting of this note might be different fro m the original. H&P by Edith Díaz MD at 07/06/122047 Author: Edith Díaz MD Service: (none) Author Type: Physician Filed: 07/10/122150 Date of Service: 07/06/122047 Status: Signed Calender Machine Operator Helper: Edith Díaz MD (Physician) [facility] Service: Hospitalist Admission History & Physical Date of Admission: 07/06/2012 Requesting Physician: , Emergency Department Reason for Admission: SIRS, staph bacteremia, polyarthritis History Obtained From: patient, spouse, chart review, Quality of history: good CHIEF COMPLAINT: Chief Complaint Chief Complaint Patient presents with Fatigue Joint Pain shoulder, knee, leg PCP: [facility] HISTORY OF PRESENT ILLNESS The patient is [...] endocarditis. The patient gets his hemodialysis at [place]. He presented to the ED with fever, episodic, high grade up to 102 degrees with chills and rigors for the past 2 weeks. Last Saturday while at hemodialysis at [place], blood cultures were drawn. Dr. Timmons had [...] EGD; Surgeon: John Singleton MD; Location: [facility]; Se rvice: Gastroenterology; Laterality: N/A; Av fistula placement 05/06/2012 Procedure: AV FISTULA; Surgeon: Oskar Meyer MD; Location: [facility] OR; Service: Vascul ar; Laterality: Left; [...] by mouth nightly. Historical Provider ergocalciferol (DRISDOL) 78865 UNITS capsule Take 1 capsule by mouth once a week. 04/15/12 04/15/13 Vikram Colbert MD fish oil-omega-3 fatty acids 1000 MG capsule Take 2 g by mouth daily. Historical Provi mark folic acid-vitamin b complex-vitamin r-iuoedapa-txac (DIALYVITE) 3 MG TABS Take 1 tablet [...] of dosage Histori herminia Provider vitamin B tiwiuhw-S-olgez acid (SUPER B VITAMINS) 0.8 MG TABS [...] BIOLOGICAL; 2 STEP KIDSUNEMPLOYED BEFORE WORKED AT [employer] IN [employer] NONE ETOH QUIT 15 YEARS AGODRUGS: quit [...] instrumental acti vities of daily living. 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 Called Dr. Quiroz, landing worker reception interviewer, at 9:06 p.m. but unable to leave [...] Addendum:10 :[address] Quiroz, landing worker reception interviewer. 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 No acute bone findings seen. No significant hip joint effusion. Mild bilateral hip degenerative joint disease. Modera te diffuse anasarca . [facility] radiologist will read the final report in the a.m. Read by Leena Espino MD on Jul 06 2012 11:08PM Disposition: Acute care Code Status: Full code Primary Care Physician: [facility] MRI hip left And Right without contrast [[id number]] Status: Preliminary result Study Result Preliminary report MRI of right hip without contrast MRI left hip without contrast: No evidence for acute fracture. No acute bone findings seen. No significant hip joint effusion. Mild bilateral hip degenerative joint disease. Modera te diffuse anasarca . [facility] radiologist will read the final report in the a.m. Read by Leena Espino MD on Jul 06 2012 11:08PM EDITH DÍAZ MD 07/06/2012 documented in this e ncounter Procedure Notes Duyen Raza - 07/06/2012 11:18 PM PSTFormatting of this note might be different fro m the original. Procedures by Duyen Raza MD at 07/06/12 0436 Author: Duyen Raza MD Service: (none) Author Type: Physician Filed: 07/06/12 5764 Date of Service: 07/06/122317 Status: Signed Calender Machine Operator Helper: Duyen Raza MD (Physician) Pre-procedure Diagnoses: 1. Effusion of knee joint right [719.06] 2. Effusion of ankle joint, left [719.07] Post-procedure Diagnoses: 1. Effusion of right knee joint [719.06] 2. Effusion of ankle joint, left [719.07] Procedures: 1. KNEE ARTHROCENTESIS [SUR44 (Custom)] 2. ANKLE ARTHROCENTESIS [SUR45 (Custom)] [facility] Service: Orthopaedic Surgery Procedure Note Pre-procedure Diagnosis: [...] 1529 Date of Service: 07/07/121523 Status: Signed Calender Machine Operator Helper: Oskar Meyer MD (Physician) Subjective: Patient is [...] EGD; Surgeon: John Singleton MD; Location: [facility]; Se rvice: Gastroenterology; Laterality: N/A; Av fistula placement 05/06/2012 Procedure: AV FISTULA; Surgeon: Oskar Meyer MD; Location: [facility]; Service: Vascul ar; Laterality: Left; [...] 20 mg by mouth nightly. ergocalciferol (DRISDOL) 71290 UNITS capsule Take 1 capsule by mouth [...] by mouth daily. folic acid-vitamin b complex-vitamin l-hzpubxpj-uter (DIALYVITE) 3 MG TABS Take 1 table [...] nightly. Not sure of dosage vitamin B quwdlni-I-wzklq acid (SUPER B VITAMINS) 0.8 MG TABS [...] PST Consult* by Elsie Lerner MD at 07/07/12619 Author: Elsie Lerner MD Service: (none) Author Type: Physician Filed: 07/07/12 1030 Date of Service: 07/07/12619 Status: Signed Calender Machine Operator Helper: Elsie Lerner MD (Physician) [facility] Service: Infectious Disease Initial Consult Note [...] in March. He had a rash in er, 2011 thought to be acute suppurative folliculitis/perforating disease. In April, he w as hospitalized at [facility] for febrile illness with blood cultures in [...] that blood cultures drawn last Saturday at [facility] were reported on 07/06 for S aureus, [...] EGD; Surgeon: John Singleton MD; Location: [facility]; Se rvice: Gastroenterology; Laterality: N/A; Av fistula placement 05/06/2012 Procedure: AV FISTULA; Surgeon: Oskar Meyer MD; Location: [facility]; Service: Vascul ar; Laterality: Left; [...] 20 mg by mouth nightly. ergocalciferol (DRISDOL) 09072 UNITS capsule Take 1 capsule by mouth [...] by mouth daily. folic acid-vitamin b complex-vitamin s-jkfnigsp-ekqr (DIALYVITE) 3 MG TABS Take 1 table [...] nightly. Not sure of dosage vitamin B xdiamvn-E-xjqpd acid (SUPER B VITAMINS) 0.8 MG TABS [...] mg Intravenous See Admin Instructions vitamin B ueqgrcp-S-rcgst acid 1 tablet Oral Daily with breakfast DISCONTD: acyclovir 400 mg Oral BID DISCONTD: aminocaproic acid 500 mg Oral Q6H DISCONTD: calcitRIOL 0.25 mcg Oral Nightly DISCONTD: fish oil-omega-3 fatty acids 2 g Oral Daily DISCONTD: gentamicin 1 mg/kg (Adjusted) Intravenous Q8H DISCONTD: omeprazole 20 mg Oral QAM AC DISCONTD: vitamin B soveexw-H-ktnwo acid 1 tablet Oral Daily with breakfast [...] BIOLOGICAL; 2 STEP KIDSUNEMPLOYED BEFORE WORKED AT [employer] IN [employer]/ [employer] NONE ETOH QUIT 15 YEARS AGODRUGS: quit [...] (5' 7")] 170.2 cm (5' 7") (07/06 1699) Weight: [72.576 kg (160 lb)-74.6 kg (164 lb 7.4 oz)] 74.6 kg (164 lb 7.4 oz) (07/06 2326) BMI (Calculated): [25.1] 25.1 (07/06 1699) Physical Exam Nursing note and vitals reviewed. [...] Range SOURCE NARES(NOSE) Comments: Testing performed at [facility];[address] [place] [address];[place] [address] RESULT NEGATIVE NEGATIVE Comments: Testing performed at [facility];[place] [address] Lab Flowsheet Order Details View Encounter Lab and Collection Details Routing Result History Specimen Collected: 07/03/12 8:34 AM Last Resulted: 07/03/12 9:51 AM Body fluid cell count Status: Edited MyChart: Not Released Value Range FLUID TYPE SYNOVIAL FLUID Comments: RIGHT KNEE Testing performed at [facility];[address] [facility];[place] [address] COLOR WHITE Comments: Testing performed at [facility];[place] [address] APPEARANCE HAZY Comments: Testing performed at [facility];[address];[place] [address] RBC'S 64530CM /mm3 Comments: CELL COUNT RESULTS PHONED TO DR RAZA 07JUL2012 AT 0045 BY LJ READ BACK RESULTS VERIFIED Testing performed at [facility];[place] [address] CORRECTED ON 07/07 AT 0148: PREVIOUSLY REPORTED 06[address] CELL COUNT PHONED TO DR RAZA AT 0045 BY LJ READ BACK RESULTS VERIFIED WBC'S 36377WN /mm3 Comments: CELL COUNT PHONED TO DR RAZA 07JUL2012 AT 0045 BY LJ READ BACK RESULTS VERIFIED Testing performed at [facility];[address] [facility];[place] [address] CORRECTED ON 07/07 AT 0148: PREVIOUSLY REPORTED 86014 Neutrophil Count, Fluid 98 % Comments: Testing performed at [facility] [address];[place] [address] LYMPHOCYTES 0 % Comments: Testing performed at [facility];[address] [place] [address];[place] [address] MONOCYTES/MACROPHAGES 2 % Comments: Testing performed at [facility] [address];[place] [address] EOSINOPHILS 0 % Comments: Testing performed at [facility];[place] [address] Mesothelial Cells 0 % Comments: Testing performed at [facility];[place] [address] OTHER CELLS 0 % Comments: Testing performed at [facility];[place] [address] Cells Counted 100 Comments: Testing performed at [facility];[place] [address] Lab Flowsheet Order Details View Encounter Lab [...] SENT FOR PATH CONSULT Testing performed at [facility];[place] [address] Order Details View Encounter Lab and Collection Details Routing Result History Specimen Collected: 07/06/12 11:08 PM Last Resulted: 07/07/12 12:57 AM FLUID CULT W/GRAM STAIN Status: Preliminary result MyChart: Not Released Component Value Specimen Description SYNOVIAL FLUID RIGHT KNEE Specimen Description Testing performed at [facility];[address] [place] [address] GRAM STAIN WBC'S SEEN GRAM NEGATIVE COCCI ON CYTO SPIN SLIDE GRAM STAIN PHONED TO DR RAZA AT 0045 BY LJ READBACK GRAM STAIN Testing performed at [facility];[address] [place] [address] CULTURE PENDING REPORT STATUS PENDING Order Details View Encounter Lab and Collection Details Routing Result History Specimen Collected: 07/06/12 11:08 PM Last Resulted: 07/07/12 1:00 AM Encounter View Encounter Result Information Status Preliminary result (07/07/2012 1:00 AM) Provider Status: Ordered FLUID CULT W/GRAM STAIN Status: Preliminary result MyChart: Not Released Component Value Specimen Description SYNOVIAL FLUID LEFT ANKLE Specimen Description Testing performed at [facility];[address] [facility];[place] [address] GRAM STAIN WBC'S SEEN NO ORGANISMS SEEN ON CYTOSPIN SLIDE GRAM STAIN PHONED TO DR RAZA AT 0045 BY LJ READBACK GRAM STAIN Testing performed at [facility];[address] [place] [address] CULTURE PENDING REPORT STATUS PENDING Order Details View Encounter Lab and Collection Details Routing Result History Specimen Collected: 07/06/12 11:09 PM Last Resulted: 07/07/12 12:59 AM Encounter View Encounter Result Information Status Preliminary result (07/07/2012 12:59 AM) Provider Status: Ordered Radiology Results (last 7 days) Procedure Component Value Units Date/Time MRI brain wo contrast and MRA head [[id number]] Resulted:07/06/122342 Order Status:Completed Updated:07/06/122342 Narrative: Brain MRI/MRA [...] 2012 11:43PM MRI hip left without contrast [[id number]] Resulted:07/06/122307 Order Status:Completed Updated:07/06/122307 Narrative: Preliminary report [...] 2012 11:08PM MRI hip right without contrast [[id number]] Resulted:07/06/122307 Order Status:Completed Updated:07/06/122307 Narrative: Preliminary report [...] Jul 06 2012 11:08PM X-ray ankle left [[id number]] Order Status:Sent Updated:07/06/122121 X-ray knee limited right [[id number]] Order Status:Sent Updated:07/06/122121 XR Chest PA and Lateral [[id number]] (Normal) Resulted:07/06/121913 Order Status:Completed PROBLEM LIST Principal [...] the prior blood cultures, reportedly done at [facility] HD catheter to be discontinued as discussed [...] Code Status: Full Code Primary Care Physician: [facility] Thank you for allowing me to participate in the care of this patient. ELSIE LERNER MD 07/07/[address] Bejarano. RONY done - Dr. Heller informed me that there were no signs of infective endocarditis Duyen Gutierrez - 07/06/2012 9:33 PM PST Consult* by Duyen Raza MD at 07/06/122132 Author: Duyen Raza MD Service: Orthopedic Surgery Author Type: Physician Filed: 07/06/12 2318 Date of Service: 07/06/122132 Status: Signed Calender Machine Operator Helper: Duyen Raza MD (Physician) [facility] Service: Orthopedic Surgery Initial Consult Note Date of Admission: 07/06/2012 Reason for Consultation: Right knee pain, left ankle pain Requesting Physician: Gifty Campbell History Obtained From: patient, chart review, spouse [...] in the right knee. He presented to [facility] ER today, workup rev ealed a swollen [...] EGD; Surgeon: John Singleton MD; Location: [facility]; Se rvice: Gastroenterology; Laterality: N/A; Av fistula placement 05/06/2012 Procedure: AV FISTULA; Surgeon: Oskar Meyer MD; Location: [facility]; Service: Vascul ar; Laterality: Left; [...] BIOLOGICAL; 2 STEP KIDSUNEMPLOYED BEFORE WORKED AT [employer] IN [employer]/ [employer] NONE ETOH QUIT 15 YEARS AGODRUGS: quit [...] count Code Status: Prior Primary Care Physician: [facility] Thank you for allowing me to participate in the care of this patient. I have discussed my recommendations with the attending physician. I will continue to follow with you. DUYEN RAZA MD 07/06/2012 9:33 PM ChaimJuan - 07/06/2012 6:38 PM PST Consult* by Juan Timmons MD at 07/06/121837 Author: Juan Timmons MD Service: Nephrology Author Type: Physician Filed: 08/19/121815 Date of Service: 07/06/121837 Status: Signed Calender Machine Operator Helper: Juan Timmons MD (Physician) [facility] Service: NEPHROLOGY CONSULT Note Carol Potter 47 y.o. [id number] male [facility] Hospital Day: LOS: 0 [...] endocarditis. The patient gets his hemodialysis at [place]. He presented to the ED with fever, episodic, high grade up to 102 degrees with chills and rigors for the past 2 weeks. Last Saturday while at hemodialysis at [place], blood cultures were drawn. Patient was empirically [...] EGD; Surgeon: John Singleton MD; Location: [facility]; Se rvice: Gastroenterology; Laterality: N/A; Av fistula placement 05/06/2012 Procedure: AV FISTULA; Surgeon: Oskar Meyer MD; Location: [facility]; Service: Vascul ar; Laterality: Left; [...] WITH [employer]; KIDSUNEMPLOYED BEFORE WORKED AT [employer] IN [employer]/ [employer] COURSESMOKE NONE ETOH QUIT 15 YEARS AGODRUGS: [...] 07/06/122302 Date of Service: 07/06/122301 Status: Signed Calender Machine Operator Helper: Salima Rodriguez RN (Registered Nurse) Patient back from MRI. Dr. Raza at bedside for procedure. Salima Rodriguez RN 07/06/122302 onver quique Transaction, Provider Unknown - 07/06/2012 10:22 PM PST ED Notes by Salima Rodriguez RN at 07/06/122221 Author: Salima Rodriguez RN Service: (none) Author Type: Registered Nurse Filed: 07/06/122221 Date of Service: 07/06/122221 Status: Signed Calender Machine Operator Helper: Salima Rodriguez RN (Registered Nurse) Patient remains in MRI at this time. Salima Rodriguez RN 07/06/122221 onver quique Transaction, Provider Unknown - 07/06/2012 9:20 PM PST ED Notes by Salima Rodriguez RN at 07/06/122119 Author: Slaima Rodriguez RN Service: (none) Author Type: Registered Nurse Filed: 07/06/122148 Date of Service: 07/06/122119 Status: Signed Calender Machine Operator Helper: Salima Rodriguez RN (Registered Nurse) Assumed care of patient. Patient in MRI at this time. Salima Rodriguez RN 07/06/122148 onver quique Transaction, Provider Unknown - 07/06/2012 9:12 PM PST ED Notes by Akua Grubbs RN at 07/06/122111 Author: Akua Grubbs RN Service: (none) Author Type: Registered Nurse Filed: 07/06/122111 Date of Service: 07/06/122111 Status: Signed Calender Machine Operator Helper: Akua Grubbs RN (Registered Nurse) Per field service technician, pt will go to xray now after which vanco should be thro and pt will go to mri Akua Grubbs RN 07/06/122111 onver quique Transaction, Provider Unknown - 07/06/2012 9:02 PM PST ED Notes by Akua Grubbs RN at 07/06/122101 Author: Akua Grubbs RN Service: (none) Author Type: Registered Nurse Filed: 07/06/122102 Date of Service: 07/06/122101 Status: Signed Calender Machine Operator Helper: Akua Grubbs RN (Registered Nurse) V/o from [...] 07/06/122100 Date of Service: 07/06/122099 Status: Signed Calender Machine Operator Helper: Akua Grubbs RN (Registered Nurse) Called hospitalist for admit orders as none in computer yet Akua Grubbs RN 07/06/122100 onver quique Transaction, Provider Unknown - 07/06/2012 8:57 PM PST ED Notes by Akua Grubbs RN at 07/06/122056 Author: Akua Grubbs RN Service: (none) Author Type: Registered Nurse Filed: 07/06/122057 Date of Service: 07/06/122056 Status: Signed Calender Machine Operator Helper: Akua Grubbs RN (Registered Nurse) Pt alert, nad. Waiting for admit orders so pt may be admitted to floor Akua Grubbs RN 07/06/122057 onver quique Transaction, Provider Unknown - 07/06/2012 8:19 PM PST ED Notes by Akua Grubbs RN at 07/06/122018 Author: Akua Grubbs RN Service: (none) Author Type: Registered Nurse Filed: 07/06/122018 Date of Service: 07/06/122018 Status: Signed Calender Machine Operator Helper: Akua Grubbs RN (Registered Nurse) hospitalist at bedside Akua Grubbs RN 07/06/122018 onver quique Transaction, Provider Unknown - 07/06/2012 7:40 PM PST ED Notes by Akua Grubbs RN at 07/06/121939 Author: Akua Grubbs RN Service: (none) Author Type: Registered Nurse Filed: 07/06/121940 Date of Service: 07/06/121939 Status: Signed Calender Machine Operator Helper: Akua Grubbs RN (Registered Nurse) Pt pulled his iv out Akua Grubbs RN 07/06/121940 onver quique Transaction, Provider Unknown - 07/06/2012 5:38 PM PST ED Notes by Akua Grubbs RN at 07/06/121737 Author: Akua Grubbs RN Service: (none) Author Type: Registered Nurse Filed: 07/06/121748 Date of Service: 07/06/121737 Status: Signed Calender Machine Operator Helper: Akua Grubbs RN (Registered Nurse) No blood return from iv start. No s/s infiltration. cata cazares phlebo asked to draw blood Akua Grubbs RN 07/06/121748 onver quique Transaction, Provider Unknown - 07/06/2012 5:20 PM PST ED Notes by Akua Grubbs RN at 07/06/121719 Author: Akua Grubbs RN Service: (none) Author Type: Registered Nurse Filed: 07/06/121752 Date of Service: 07/06/121719 Status: Signed Calender Machine Operator Helper: Akua Grubbs RN (Registered Nurse) Pt with multiple c/o. C/o myalgia, back pain, chills, unable to stand, unable to see out of r eye (or left eye too, although this changes during course of interview). States was seen in [place] for same sx a week ago, given pain pills and sent home. Alert, smiling and talk ative. nad Akua Grubbs RN 07/06/121752 hRachna cosby DO - 07/06/2012 5:03 PM PSTFormatting of this note might be different from the o riginal. ED Provider Notes by Rachna Kan DO at 07/06/121702 Author: Rachna Kan DO Service: (none) Author Type: Physician Filed: 07/07/12 0150 Date of Service: 07/06/121702 Status: Signed Calender Machine Operator Helper: Rachna Kan DO (Physician) 5:03 PM [facility] Department of Emergency Medicine History of [...] Nik watts was seen last week in [place] for the same symptoms and was given pain medications and d ischarged home. Pt was instructed at that time to come to [facility] if his symptoms worsened. Nik watts denies chest pain, cough, shortness of breath, dysuria, and abdominal pain. PCP: [facility] Past Medical History Diagnosis Date Hyperlipidemia Hypertension [...] EGD; Surgeon: John Singleton MD; Location: [facility]COPY; Se rvice: Gastroenterology; Laterality: N/A; Av fistula placement 05/06/2012 Procedure: AV FISTULA; Surgeon: Oskar Meyer MD; Location: [facility] MAIN OR; Service: Vascul ar; Laterality: Left; [...] by mouth nightly. Historical Provider ergocalciferol (DRISDOL) 36228 UNITS capsule Take 1 capsule by mouth once a week. 04/15/12 04/15/13 Vikram Colbert MD fish oil-omega-3 fatty acids 1000 MG capsule Take 2 g by mouth daily. Historical Provi mark folic acid-vitamin b complex-vitamin h-pijpyoqh-ugir (DIALYVITE) 3 MG TABS Take 1 tablet [...] of dosage Histori herminia Provider vitamin B uwsazwz-X-nkicp acid (SUPER B VITAMINS) 0.8 MG TABS [...] BIOLOGICAL; 2 STEP KIDSUNEMPLOYED BEFORE WORKED AT [employer] N[employer] ETOH QUIT 15 YEARS AGODRUGS: quit [...] is on dialysis and was seen in [place] last week for similar symptoms. Will check labs, EKG, CXR, cultures an d reassess. 5:[address] Timmons (visual education director) who is in the ED and requests that I order blood cultures, treat the pt and admit him to the hospitalist. He states that the pt was josué ated last Saturday and was found to have bacteremia with a WBC of 20,000 and he was treated wi Gentimycin and Vancomycin. Pt has already had [...] Value Ref Range Date/Time Lactic acid, plasma [[id number]] (Abnormal) Collected:07/06/122024 Order Status:Completed Updated:07/06/122109 Specimen Information:Blood LACTIC ACID 2.8 (H) 0.4 - 2.0 mmol/L Complete Metabolic Panel [[id number]] (Abnormal) Collected:07/06/121799 Order Status:Completed Updated:07/06/121851 Specimen Information:Blood SODIUM 130 (L) 135 - [...] EGFR 8 (L) >60 mL/min/1.73m2 C-Reactive Protein [[id number]] (Abnormal) Collected:07/06/121799 Order Status:Completed Updated:07/06/121851 Specimen Information:Blood CRP 33.0 (H) <0.5 mg/dL Free T4 [[id number]] Collected:07/06/121799 Order Status:Completed Updated:07/06/121851 FREE T4 1.0 0.7 - 1.5 ng/dL Gentamicin, random [[id number]] (Abnormal) Collected:07/06/121799 Order Status:Completed Updated:07/06/121851 GENTAMICIN, RANDOM 0.6 (L) 5.0 - 10.0 ug/mL TSH [[id number]] (Abnormal) Collected:07/06/121799 Order Status:Completed Updated:07/06/121851 TSH 7.30 (H) 0.45 - 5.10 uIU/mL Vancomycin, trough [[id number]] Collected:07/06/121799 Order Status:Completed Updated:07/06/121851 VANCOMYCIN,TROUGH 13.8 10 - 20 ug/mL Sedimentation Rate (ESR) [[id number]] (Abnormal) Collected:07/06/121799 Order Status:Completed Updated:07/06/121851 Specimen Information:Blood ESR 95 (H) 0 - 15 mm/Hr CBC w Auto Diff [[id number]] (Abnormal) Collected:07/06/121799 Order Status:Completed Updated:07/06/121830 Specimen Information:Blood [...] ED Interpretation Documented by Merly Erazo (07/06/121913, [facility], Emergency Medicine) Chest X-Ray 2 view: mild cardiomegaly, moderate vascular congestion, dialysis catheter is in place, no infiltrates. Viewed and interpreted by me: Rachna Kan DO. EKG 18:18 Normal sinus rhythm, rate 84, normal [place], normal BASSAM, normal axis, normal QRS, non [...] I ag ree with its contents. DO Rachna Ludwig DO 07/07/12 0150 documented in this e ncounter Miscellaneous Notes Plan of Care - Kisha Tello MD - 07/12/2012 10:36 AM PST Plan of Care by Kisha Tello MD at 07/12/12 1036 Author: Kisha Tello MD Service: (none) Author Type: Physician Filed: 07/12/12 1039 Date of Service: 07/12/12 1036 Status: Signed Calender Machine Operator Helper: Kisha Tello MD (Physician) Would need to get a dosing schedule from pharmacy for discharge . Once d/c plans - [place]/[facility] finalized- will need to confirm through lining caser with regard to continued iv vancomycin post dialysis for 8 weeks from 07/08. d/c only after confirmation that this is arranged for. p Note - Oskar Meyer MD - 07/11/2012 4:53 PM PST Brief Op Note by Oskar Meyer MD at 07/11/121652 Author: Oskar Meyer MD Service: Vascular Surgery Author Type: Physician Filed: 07/11/121657 Date of Service: 07/11/121652 Status: Signed Calender Machine Operator Helper: Oskar Meyer MD (Physician) [facility] Service: Vascular Surgery Brief Op Note Pre-operative Diagnosis: ESRD and fistula too deep to access Post-operative Diagnosis: Same Procedure(s): Superficialization of left arm brachiobasilic fistula Attempted right IJ access but right IJ clotted Removal of left IJ dialysis catheter and placement of left IJ permacath over wire Surgeon: Oskar Meyer MD Laborer Tan House(s): None Anesthesia: General endotrachial anesthesia Estimated Blood [...] 07/07/121826 Date of Service: 07/07/121810 Status: Signed Calender Machine Operator Helper: Duyen Raza MD (Physician) [facility] Service: Orthopaedic Surgery Operative Note Pre-operative Diagnosis: 1) Right knee septic arthritis, 711.06 2) Right knee acute gout attack, 274.0 Post-operative Diagnosis: Same Procedure(s): Right knee arthroscopy for irrigation and drainage, CPT 47343 Surgeon: DUYEN RAZA MD Anesthesia: General endotrachial anesthesia Anesthesiologist: JESSE WAGONER MD Estimated Blood Loss: Minimal Other: Drains: 10 luxembourger ml Specimens: culture x1 Indications: See pre-operative [...] the irrigation, I then placed a 10 luxembourger drain under direct visualization, through the lateral supra-patellar portal. I then closed the portals with nylon, and stitched the drain. I cleaned the skin, placed a sterile dressing consisting of adaptic, dry guaze and Sof-Rol. Drapes were then removed, ge neral anesthesia was reversed, the patient was extubated, and transferred to the [facility]. he was taken to the recovery room [...] 07/07/121810 Date of Service: 07/07/121810 Status: Signed Calender Machine Operator Helper: Duyen Raza MD (Physician) [facility] Service: Orthopedic Surgery Brief Op Note See complete electronic operative report for full details. DUYEN RAZA MD 07/07/2012 6:11 PM p Note - Oskar Meyer MD - 07/07/2012 4:03 PM PST Brief Op Note by Oskar Meyer MD at 07/07/12 1603 Author: Oskar Meyer MD Service: Vascular Surgery Author Type: Physician Filed: 07/07/12 1606 Date of Service: 07/07/12 1603 Status: Signed Calender Machine Operator Helper: Oskar Meyer MD (Physician) [facility] Service: Vascular Surgery Brief Op Note Pre-operative Diagnosis: Infected tunneled dialysis catheter with bacteremia; ESRD Post-operative Diagnosis: Same Procedure(s): Removal of tunneled right IJ permacath Placement of left IJ temporary dialysis catheter under ultrasound guidance Surgeon: Oskar Meyer MD Laborer Tan House(s): None Anesthesia: Local anesthesia Estimated Blood Loss: [...] Physician Filed: 07/07/12 1529 Date of Service: 07/07/121521 Status: Signed Calender Machine Operator Helper: Carlee Bejarano MD (Physician) The patient was [...] is still pending. I spoke to our rn case mgr about arranging transportation to Onelia Quiroz's office [...] | EXTERNAL LAB | | performed at [facility];[address] [place] [address];[place] [address] 027 NAP1 BI | | | 027 NAP1 BI PRESUMPTIVE NEGATIVE | | | Detection of 027 NAP1 BI strains of C. difficile is presumptive and | | | for epidemiological purposes and not intended to guide or monitor | | | treatment for C. difficile infections. Testing performed at [facility];[address] | | | [facility];[place] [address] | | + + + + +---------+ [...] Rad Conversion - 02/13/2019 4:30 PM PDT HISTORY: [...] | EXTERNAL LAB | | performed at [facility];[address] [place] [address];[place] [address] 027 NAP1 BI | | | 027 NAP1 BI PRESUMPTIVE NEGATIVE | | | Detection of 027 NAP1 BI strains of C. difficile is presumptive and | | | for epidemiological purposes and not intended to guide or monitor | | | treatment for C. difficile infections. Testing performed at [facility] | | | [facility];[place] [address] | | + + + + +---------+ [...] | Testing performed | | | at [facility];[address] [place] [address];[place] [address] SPECIAL REQUESTS | | | RAC | | | Testing performed at [facility];[address] [place] [address];[place] [address] | | | CULTURE NO GROWTH IN 5 DAYS. | | | Testing | | | performed at [facility], [address] [place] [address] REPORT STATUS | | | 07/14/2012 FINAL [...] | Testing performed | | | at [facility];[address] [facility];[place] [address] SPECIAL REQUESTS | | | R HAND | | | Testing performed at [facility];[address] [facility];[place] [address] | | | CULTURE NO GROWTH IN 5 DAYS. | | | Testing | | | performed at [facility], [address] [place] [address] REPORT STATUS | | | 07/14/2012 FINAL [...] EXTERNAL LAB | | Testing performed at [facility];[address] | | | [facility];[place] [address] OVA AND PARASITES | | | SPECIMEN DESCRIPTION: UNFORMED | | | NO OVA OR PARASITES SEEN | | | Testing performed at [facility], [address] [place] [address] | | | [place] [address] REPORT STATUS | | | 07/11/2012 FINAL [...] EXTERNAL LAB | | Testing performed at [facility], [address] [facility] [place] [place] | | | [address] | | + + + + +---------+ [...] | EXTERNAL LAB | | performed at [facility];[address] [facility];[place] [address] 027 NAP1 BI | | | 027 NAP1 BI PRESUMPTIVE NEGATIVE | | | Detection of 027 NAP1 BI strains of C. difficile is presumptive and | | | for epidemiological purposes and not intended to guide or monitor | | | treatment for C. difficile infections. Testing performed at [facility];[address] | | | [facility];[place] [address] | | + + + + +---------+ [...] EXTERNAL LAB | | Testing performed at [facility];[address] | | | [facility];[place] [address] CULTURE | | | NO SALMONELLA, SHIGELLA, [...] TESTING. | | | Testing performed at [facility], [address] [facility], | | | [place] [address] REPORT STATUS | | | 07/10/2012 FINAL [...] | EXTERNAL LAB | | performed at [facility];[address] [place] [address];[place] [address] | | + + + + +---------+ + + | Performing | Address | City/State/Zipcode | Phone Number | | Organization | | | | + +---------+ + + | EXTERNAL LAB | | | | + +---------+ + + XR Chest 1 Bj (07/07/2012 4:26 PM PST) + + | [...] Rad Conversion - 02/13/2019 4:30 PM PDT HISTORY:Dialysis [...] LAB | | Testing performed at [address];[place] [address] MRSA PCR | | | NEGATIVE Testing performed at | | | [address];[place] [address] | | + + + + +---------+ [...] no pericardial effusion. | | | MEASUREMENTS Airport Security Screener: PAUL Authenticated by: | | | Jayy [...] was performed.Procedure: RONY was done at the [facility] in the fasting state. | | Informed [...] is no pericardial | | effusion. MEASUREMENTS Airport Security Screener: Abundioticated by: Jayy Heller | | MDReport Date/Time: [...] | |MEASUREMENTS | | | | | |Airport Security Screener: SIRIW | |Authenticated by: Jayy Heller MD | |Report Date/Time: 07-07-2012 14:01:40 | + + Medical Cytology (07/07/2012 12:00 AM PST) + + | Specimen | + + | | + + + + + | Narrative | Performed At | + + + | CASE: [id number] PATIENT: CAROL POTTER Cytology Report | EXTERNAL [...] interpretation was | | | performed by [facility], [facility], [address] | | [place] [address] (Supervisor Sterile Processing: Trevor Dan M.D.; CLIA#: [id number]). Technical preparation was | | | performed by [facility], [address] [facility] | | | [place] [address] (Supervisor Sterile Processing: Duyen Baez M.D.; CLIA#: | | | [id number]). Kalpana STARKEY(ASC) | | | Electronically signed Jul 09, [...] MRI OF THE BRAIN WITHOUT CONTRAST PLUS OHKAY OWINGEH OF YANG MRA | | | 07/06/2012 HISTORY: Staphylococcal bacteremia. Clinical concern | | | for septic embolization and stroke. COMPARISON: None. | | | TECHNIQUE: 3-D zosg-js-ehkspa mechoopda of Yang MRA with | | | [...] any is minimal. The | | | mechoopda of Yang MRA shows no evidence for high-grade stenosis, | | | central vessel occlusion or mechoopda of Yang saccular aneurysm. | | | [...] changes or metabolic process. 3. Unremarkable screening mechoopda of | | | Yang MRA. 4. [...] THE BRAIN WITHOUT CONTRAST PLUS | | OHKAY OWINGEH OF YANG MRA 07/06/2012 HISTORY: Staphylococcal bacteremia. Clinical concern for | | septic embolization and stroke. COMPARISON: None. TECHNIQUE: 3-D qduj-pr-rtscpi mechoopda | | of Yang MRA with multiprojectional [...] | disease if any is minimal. The mechoopda of Yang MRA shows no evidence for high-grade | | stenosis, central vessel occlusion or mechoopda of Yang saccular aneurysm. Posterior | | [...] | | metabolic process. 3. Unremarkable screening mechoopda of Yang MRA. 4. Maxillary sinus | | mucosal thickening and mild mastoid fluid signal. Electronically signed by Isaac Morgan | | MD Ronel on Jul 07 2012 7:35AM | |3. Unremarkable screening mechoopda of Yang MRA. | | | |4. [...] Rad Conversion - 02/13/2019 4:30 PM PDT HISTORY:Left [...] + + | CAROL ROMY XR CHEST 2 VIEW FRONTAL AND [...] NHAN | | | Testing performed at [facility];[address] [place] [address];[place] [address] CULTURE | | | STAPHYLOCOCCUS AUREUS FOR | | | SUSCEPTIBILITIES SEE CULTURE [id number] COLLECTED ON THE SAME | | | DATEAbnormal | | | GROWTH IN TWO OF TWO BOTTLESAbnormal | | | TIME TO DETECTION: 1.65 DAYS | | | Testing performed at [facility], [address] | | | [place] [address] REPORT STATUS | | | 07/09/2012 FINAL [...] HAND | | | Testing performed at [facility];[address];[place] [address] GRAM STAIN | | | GRAM POSITIVE COCCI SEEN ON SMEAR OF ANAEROBIC BOTTLE | | | CALLED TO LANE/EZEKIEL Villegas ON 07/07/12 | | | AT [address] READBACK | | | GRAM POSITIVE COCCI SEEN ON SMEAR OF AEROBIC BOTTLE | | | SMEAR RESULTS CALLED TO AND | | | READ BACK BY: SHELL Acosta IN 6RP @ 2155 BY LGS | | | Testing performed at [facility];[address] | [address];[place] [address] CULTURE | | | STAPHYLOCOCCUS AUREUS SUSCEPTIBILITY TO FOLLOWAbnormal | | | GROWTH IN TWO OF TWO | | | BOTTLESAbnormal | | | TIME TO DETECTION: 0.78 DAYS | | | Testing performed at [facility], [address] [facility] [facility], | | | [place] [address] REPORT STATUS | | | 07/09/2012 FINAL [...] + + | Performing | Address | City/State[facility] | Phone Number | | Organization | | | | + +---------+ + + | EXTERNAL LAB | | | | + +---------+ + + documented in this encounter Visit Diagnoses + + | Diagnosis | + + | Sepsis, unspecified (HCC) Sepsis | + + | Bilateral ankle [...]
--- OUTSIDE RECORDS SUMMARY | ~2020-03-11 | XMS | Clinical Summary ---
Demographics + + + | Address | [address] | | | [place] [address] | + + + | Home Phone [...] Team Providers + +------+ + | Care Ware Cleaner Name | Role | Phone | + [...] 2 puffs inhaled | | 0 | 02/22 | | Activ | | HFA) 90 mcg/puff | every 4 hours as | | | 10/11 | | e | | inhaler | [...] | | | + + + +---------+------+------+-------+ +---+ + | | Additional | | | InformationPatient | | | not taking. Reported | | | on 01/31/2020 5:53 | | | PM | +---+ + + + +---+---+------+---+-------+ | ferrous sulfate | 1 tablet by mouth | | 0 | 02/22 | | Activ | | 325 mg tablet | twice daily with | | | 10/11 | | e | | | meals | | | 12 | | | + + +---+---+------+---+-------+ | TechLite Lancets | Use as directed by | | 0 | 02/22 | | Activ | | MISC | physician | | | 4/20 | | e | | | | | | 12 | | | + + +---+---+------+---+-------+ +---+ + | | Additional | | | InformationPatient | | | not taking. Reported | | | on 02/19/2020 12:01 | | | PM | +---+ + + + +--------+---+------+------+-------+ | acetaminophen | Take 650 mg by mouth | | 0 | | | Activ | | (TYLENOL) 325 mg | every 6 hours as | | | | | e | | tablet | needed for Pain. | | | | | | + + +--------+---+------+------+-------+ | amLODIPine | Take 10 mg by mouth | | 0 | | | Activ | | (NORVASC) 10 MG | Daily. | | | | | e | | tablet | | | | | | | + + +--------+---+------+------+-------+ | b complex-vitamin | Take 1 tablet by | | 0 | 08/0 | | Activ | | c-folic acid | mouth daily. | | | 320 | | e | | (NEPHRO-THU) tablet | | | | 17 | | | + + +--------+---+------+------+-------+ | | Inhale 2 puffs into | [...] | | | | | + + +--------+---+------+------+-------+ | cholecalciferol | . | | 0 | | | Activ | | (CHOLECALCIFEROL) 50 | | | | | | e | | mcg (2,000 units) | | | | | | | | tablet | | | | | | | + + +--------+---+------+------+-------+ | | | | 0 | 04/1 | | Activ | | HYDROcodone-acetamin | | | | 2/20 | | e | | ophen (NORCO) 5-325 | | | | 17 | | | | mg per tablet | | | | | | | + + +--------+---+------+------+-------+ | levothyroxine | Take 75 mcg by mouth | | 0 | | | Activ | | (SYNTHROID) 75 MCG | every morning | | | | | e | | tablet | (before breakfast). | | | | | | + + +--------+---+------+------+-------+ | montelukast | Take 1 tablet by | | 0 | 05/0 | | Activ | | (SINGULAIR) 10 mg | mouth nightly. | | | 7/20 | | e | | tablet | | | | 14 | | | + + +--------+---+------+------+-------+ | ondansetron | | | 0 | 04/1 | | Activ | | (ZOFRAN ODT) 8 mg | | | | 2/20 | | e | | disintegrating | | | | 17 | | | | tablet | | | | | | | + + +--------+---+------+------+-------+ | sevelamer | Take 2,400 mg by | | 0 | 08/0 | | Activ | | carbonate (RENVELA) | mouth 3 times daily | | | 3/20 | | e | | 800 mg tablet | (with meals). | | | 17 | | | + + +--------+---+------+------+-------+ | warfarin | Take 5 mg by mouth | | 0 | 04/2 | | Activ | | (COUMADIN) 4 MG | Daily . | | | 8/20 | | e | | tablet | | | | 18 | | | + + +--------+---+------+------+-------+ | albuterol 90 | Inhale 2 puffs into | | 0 | 05/0 | | Activ | | mcg/puff inhaler | the lungs every 4 | | | 7/20 | | e | | | (four) hours as | | | 14 | | | | | needed for Wheezing. | | | | | | + + +--------+---+------+------+-------+ | allopurinol | Take 100 mg by mouth | | 0 | | | Activ | | (ZYLOPRIM) 100 mg | daily. Indications: | | | | | e | | tablet | Primary Gout | | | | | | + + +--------+---+------+------+-------+ | | Inhale 1 puff into | [...] | | | | | + + +--------+---+------+------+-------+ | carvedilol (COREG) | Take 1 tablet by | 60 | 1 | 08/1 | | Activ | | 6.25 mg tablet | mouth 2 times daily | tablet | | 1/20 | | e | | | (with breakfast & | | | 20 | | | | | dinner). | | | | | | + + +--------+---+------+------+-------+ | meclizine | Take 1 tablet by | 30 | 0 | 08/1 | | Activ | | (ANTIVERT) 12.5 mg | mouth every 6 hours | tablet | | 1/20 | | e | | tablet | as needed for | | | 20 | | | | | Dizziness. | | | | | | + + +--------+---+------+------+-------+ | cetirizine | Take 10 mg by mouth | | 0 | | | Activ | | (ZYRTEC) 10 mg | Daily. | | | | | e | | tablet | | | | | | | + + +--------+---+------+------+-------+ | clobetasol | Apply topically 2 | | 0 | | | Activ | | (TEMOVATE) 0.05% | times daily. | | | | | e | | cream | | | | | | | + + +--------+---+------+------+-------+ | ofloxacin | 3 drops 4 times | | 0 | | | Activ | | (OCUFLOX) 0.3% | daily. | | | | | e | | ophthalmic solution | | | | | | | + + +--------+---+------+------+-------+ | Blood Glucose | Use as directed by | | 0 | / | 08/ | Disco | | Monitoring Suppl | physician | | | 10/11 | 02/10 | ntinu | | (CONTOUR BLOOD | | | | 12 | 20 | ed | | GLUCOSE SYSTEM) GORGE | | | | | | (Qian | | | | | | | | ent | | | | | | | | Not | | | | | | | | Takin | | | | | | | | g) | + + +--------+---+------+------+-------+ | ergocalciferol | Take 50,000 Units by | | 0 | 02/22 | 01/23 | Disco | | (VITAMIN D-2) 50,000 | mouth Once a week. | | | 10/11 | 02/10 | ntinu | | units capsule | | | | 12 | 20 | ed | | | | | | | | (Qian | | | | | | | | ent | | | | | | | | Not | | | | | | | | Takin | | | | | | | | g) | + + +--------+---+------+------+-------+ | aspirin 81 mg EC | Take 81 mg by mouth | | 0 | 02/22 | 01/23 | Disco | | tablet | Daily. | | | 10/11 | 20 | ntinu | | | | | | 12 | 20 | ed | | | | | | | | (Qian | | | | | | | | ent | | | | | | | | Not | | | | | | | | Takin | | | | | | | | g) | + + +--------+---+------+------+-------+ | hydrOXYzine | One tablet by mouth | | 0 | / | 08/2 | Disco | | (ATARAX) 25 MG | every 6 hours if | | | / | 8/20 | ntinu | | tablet | needed. May cause | | | 12 | 20 | ed | | | drowsiness. | | | | | (Qian | | | | | | | | ent | | | | | | | | Not | | | | | | | | Takin | | | | | | | | g) | + + +--------+---+------+------+-------+ | simvastatin | Take 20 mg by mouth | | 0 | 02/22 | 2 | Disco | | (ZOCOR) 20 mg tablet | every evening. | | | 10/11 | 8/20 | ntinu | | | | | | 12 | 20 | ed | | | | | | | | (Qian | | | | | | | | ent | | | | | | | | Not | | | | | | | | Takin | | | | | | | | g) | + + +--------+---+------+------+-------+ | metformin | Take 2-1/2 tablets | | 0 | 02/22 | 08/2 | Disco | | (GLUCOPHAGE) 1000 MG | by mouth every | | | 4/20 | 8/20 | ntinu | | tablet | evening with food or | | | 12 | 20 | ed | | | milk for diabetes | | | | | (Qian | | | | | | | | ent | | | | | | | | Not | | | | | | | | Takin | | | | | | | | g) | + + +--------+---+------+------+-------+ | telmisartan | Take 40 mg by mouth | | 0 | 02/22 | 01/23 | Disco | | (MICARDIS) 40 mg | Daily. | | | 10/11 | 02/10 | ntinu | | tablet | | | | 12 | 20 | ed | | | | | | | | (Qian | | | | | | | | ent | | | | | | | | Not | | | | | | | | Takin | | | | | | | | g) | + + +--------+---+------+------+-------+ | sodium bicarbonate | Take 1,300 mg by | | 0 | | 01/23 | Disco | | 650 mg tablet | mouth 2 times daily. | | | | 02/10 | ntinu | | | | | | | 20 | ed | | | | | | | | (Qain | | | | | | | | ent | | | | | | | | Not | | | | | | | | Takin | | | | | | | | g) | + + +--------+---+------+------+-------+ | betamethasone | Apply topically 2 | | 0 | | 01/23 | Disco | | valerate (VALISONE) | (two) times daily | | | | 02/10 | ntinu | | 0.1 % cream | for 7 days. | | | | 20 | ed | | | | | | | | (Qian | | | | | | | | ent | | | | | | | | Not | | | | | | | | Takin | | | | | | | | g) | + + +--------+---+------+------+-------+ Active Problems + + + | Problem | Noted Date | + + + | History of DVT (deep vein thrombosis) | 02/01/2020 | + + + | Anemia in [...] + + + + | Overview: JAMIL [id number] Decision | + + + +---+ | [...] Chronic obstructive asthma | | + +---+ Resolved Problems + + + + | Problem | Noted | Resolved | | | Date | Date | + + + + | Weakness generalized | 02/01/20 | | | | 20 | 0 | + + + + | Vertigo | 01/31/20 | | | | 20 | 0 | + + + + Encounters +--------+ + + + + | Date | Type | Specialty | Care Team | Description | +--------+ + + + + | 02/18/ | Document[facility] | Nephrology | [facility], | Other (Med list from | | 2019 | on | | Markus Riggins | [place] 01/2720) | | | | | 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 | | +--------+ + + + + | 02/03/ | Documentati | Nephrology | [facility], | Other (Tansplant | | 2019 | on | | Markus Riggins | team letter | | | | | 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 | 02/03/20) | +--------+ + + + + | 01/30/ | Hospital | Internal Medicine | Artis Dean MD | Vertigo; End-stage | 2019 - | Encounter | | Jose Antonio Allan | renal disease on | | | | | MD Indra Burgess, | hemodialysis (HCC); | | | | | MD Luis | 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); | | | | | | Essential | | | | | | hypertension; Anemia | | | | | | due to chronic | | | | | | kidney disease, on | | | | | | chronic dialysis | | | | | | (HCC) | +--------+ + + + + from [...] | | + + +------+ + | Kidney disease | Neg Hx | | | + + +------+ + [...] | + + + + + | Med Mgmt: Uric Acid | | | | | | 3 | | | + + + + + | Med Mgmt: Vit D | | | | | | 3 | | | + + + + + | Medication | | | | | Management | 3 | | | + + + + + | Vaccine: | | | | | Pneumococcal 19-64 | 9 | | | | (1 of 3 - PCV13) | | | | + [...] | + + + + + | Colorectal Cancer | | 07/07/19 | | | Screening (FIT) | 4 | 13, | | | | | 04/15/20 | | | | | 12, | | | | | 04/14/20 | | | | | 12 | | + + + + + | Hemoglobin A1c | | 10/09/19 | | | Screening | 8 | 18, | | | | | 02/18/20 | | | | | 17, | | | | | 10/10/19 | | | | | 17, | | | | | Addition | | | | | al | | | | | history | | | | | exists | | + + + + + | Med Mgmt: HBA1C | | 10/09/19 | | | | 9 | 18, | | | | | 02/18/20 | | | | | 17, | | | | | 10/10/19 | | | | | 17, | | | | | Addition | | | | | al | | | | | history | | | | | exists | | + + + + + | Med Mgmt: TSH | | 10/09/19 | | | | 9 | 18, | | | | | 04/29/20 | | | | | 16 | | + + + + + | Adult Annual | | | | | Wellness Visit | 0 | | | + + + + + | Vaccine: Influenza | | 04/10/20 | | | (#1) | 0 | 19, | | | | | 03/17/20 | | | | | 18, | | | | | 03/20/20 | | | | | 16, | | | | | Addition | | | | | al | | | | | history | | | | | exists | | + + + + + | Med Mgmt: INR | | 02/01/20 | | | | 0 | 20, | | | | | 10/20/19 | | | | | 18, | | | | | 10/19/19 | | | | | 18, | | | | | Addition | | | | | al | | | | | history | | | | | exists | | + + + + + | Med Mgmt: Phosphate | | 02/01/20 | | | | 1 | 20, | | | | | 07/25/19 | | | | | 18, | | | | | 07/24/19 | | | | | 18, | | | | | Addition | | | | | al | | | | | history | | | | | exists | | + + + + + | Med Mgmt: Ca | | 02/02/20 | | | | 1 | 20, | | | | | 02/01/20 | | | | | 20, | | | | | 10/20/19 | | | | | 18, | | | | | Addition | | | | | al | | | | | history | | | | | exists | | + + + + + | Med Mgmt: Cr | | 02/02/20 | | | | 1 | 20, | | | | | 02/01/20 | | | | | 20, | | | | | 10/20/19 | | | | | 18, | | | | | Addition | | | | | al | | | | | history | | | | | exists | | + + + + + | Vaccine: | | 07/20/19 | | | Dtap/Tdap/Td (2 - | 9 | 19, | | | Td) | | 07/10/19 | | | | | 07, | | | | | 03/06/19 | | | | | 94 | | + + + + + | Hepatitis C | Completed | 01/30/20 | | | Screening | | 18 | | + + + + + [...] | Left: | | | 10/05/ | [id number] | | Curved - Sn/AImplanted: Qty: | [...] | Left: | | | 02/22/ | [id number] | | Pre Cvd Chcf Std | | Neck | | | 2012 | 0 | | Hemosplit 14.5 24cm - | | | | | | /[id number] | | [id number]: Qty: 1 on | | | | | | 90 | | 07/11/2012 by Oskar Meyer, | | | | | | /[id number] | | MD | | | | | | 631 | + +------+--------+ +--------+--------+--------+ Procedures + +--------+ + + + [...] + + from Last 3 Months Results POC Glucose (02/02/2020 11:41 AM PDT)Only the most recent of 6 results within the time rubi od is included. + + + + + + | Component | Value | Ref Range | Performed | Pathologist | | | | | At | Signature | + + + + + + | Glucose, | 160 (H)Comment: Testing | 65 - 99 mg/dL | [facility] | | | POC | performed at [facility];[address] LAB[address] | | | [address];[place], [place] | | | | | | [address] | | | | + + + + + + + + | Specimen | + + | | + + + + + + + | Performing | Address | City/State/Zipcode | Phone Number | | Organization | | | | + + + + + | [facility] | [address] | [place] [address] | [phone] | + + + + + Lipid Panel (02/02/2020 5:30 AM PDT) + + + + + + | Component | Value | Ref Range | Performed | Pathologist | | | | | At | Signature | + + + + + + | Cholesterol | 119 | <200 mg/dL | [facility] | | | | | | LABORATORY [...] | | | Calculated | performed at [facility], [address] | | LABORATORY | | | | [address], | | | | | | [place] [address] | | | | + + + + + + + + | Specimen | + + | Blood | + + + + + + + | Performing | Address | City/State/Zipcode | Phone Number | | Organization | | | | + + + + + | [facility] | [address] | [place] [address] | [phone] | + + + + + CBC with Differential (02/02/2020 5:30 AM PDT)Only the most recent of 2 results within the time period is included. + + + + + + | [...] 0.03Comment: Testing | 0.00 - 0.10 | [facility] | | | Absolute | performed at [facility], [address] | LABORATORY | | | | [address], | | | | | | [place] [address] | | | | + + + + + + + + | Specimen | + + | Blood | + + + + + + + | Performing | Address | City/State/Zipcode | Phone Number | | Organization | | | | + + + + + | [facility] | [address] | [place] [address] | [phone] | + + + + + Basic [...] 8 (L)Comment: GFR <60: | >60 | [facility] | | | GFR | CHRONIC KIDNEY [...] | | | | | | MDRD IDMS traceable | | | | | | equation.Testing | | | | | | performed at [facility], [address] | | | | | | [address], | | | | | | [place] [address] | | | | + + + + + + + + | Specimen | + + | Blood | + + + + + + + | Performing | Address | City/State/Zipcode | Phone Number | | Organization | | | | + + + + + | [facility] | [address] | [place] [address] | [phone] | + + + + + HEMODIALYSIS (02/01/2020 9:45 AM PDT) + + + | Narrative | Performed At | + + + | Jason Chavira MD 02/01/2020 9:46 AM [facility] | | | [facility] Hemo-Dialysis Procedure note Pt is seen on [...] | | 500 qd 600 AP -200 Director Digital Strategy 180 Constitutional: pt | | | appears [...] | | + + + Hepatitis B Surface Ab, [...] | | | | | | at [facility], [address] | [address], [address], [facility] | | | | | | [address] | | | | + + + + + + + + | Specimen | + + | Blood | + + + + + + + | Performing | Address | City/State/Zipcode | Phone Number | | Organization | | | | + + + + + | [facility] | [address] | [place] [address] | [phone] | + + + + + Hepatitis B Core Ab, IgM (02/01/2020 9:15 AM PDT) + + + + + + | Component | Value | Ref Range | Performed | Pathologist | | | | | At | Signature | + + + + + + | HEP B CORE | NegativeComment: Testing | Negative | [facility] | | | IgM | performed at [facility], | | LABORATORY | | | | [address], [address], | | | | | | [facility] [address] | | | | + + + + + + + + | Specimen | + + | Blood | + + + + + + + | Performing | Address | City/State/Zipcode | Phone Number | | Organization | | | | + + + + + | [facility] | [address] | [place] [address] | [phone] | + + + + + Hepatitis [...] | | Surface Ag | performed at [facility], | | LABORATORY | | | | [address], [address], | | | | | | [facility] [address] | | | | + + + + + + + + | Specimen | + + | Blood | + + + + + + + | Performing | Address | City/State/Zipcode | Phone Number | | Organization | | | | + + + + + | [facility] | [address] | [place] [address] | [phone] | + + + + + Darya ACEVEDO (02/01/2020 4:59 AM PDT) + + + + + + | Component | Value | Ref Range | Performed | Pathologist | | | | | At | Signature | + + + + + + | INR | 3.2Comment: REFERENCE | | KR | | | | RANGE:0.9 - 1.2 [...] | | | performed at [facility] | | | | | | [employer];[place], [place] | | | | | | [address] | | | | + + + + + + + + | Specimen | + + | Blood | + + + + + + + | Performing | Address | City/State/Zipcode | Phone Number | | Organization | | | | + + + + + | [facility] | [address] | [place] [address] | [phone] | + + + + + Phosphorus (02/01/2020 4:59 AM PDT) + + + + + + | Component | Value | Ref Range | Performed | Pathologist | | | | | At | Signature | + + + + + + | Phosphorus | 5.0 (H)Comment: Testing | 2.3 - 4.8 mg/dL | [facility] | | | | performed at [facility], [address] | | LABORATORY | | | | [address], | | | | | | [place] [address] | | | | + + + + + + + + | Specimen | + + | Blood | + + + + + + + | Performing | Address | City/State/Zipcode | Phone Number | | Organization | | | | + + + + + | [facility] | [address] | [place] [address] | [phone] | + + + + + Magnesium (02/01/2020 4:59 AM PDT) + + + + + + | Component | Value | Ref Range | Performed | Pathologist | | | | | At | Signature | + + + + + + | Magnesium | 3.1 (H)Comment: Testing | 1.7 - 2.4 mg/dL | [facility] | | | | performed at [facility], [address] | | LABORATORY | | | | [address], | | | | | | [place] [address] | | | | + + + + + + + + | Specimen | + + | Blood | + + + + + + + | Performing | Address | City/State/Zipcode | Phone Number | | Organization | | | | + + + + + | [facility] | [address] | [place] [address] | [phone] | + + + + + Comprehensive [...] 27 | 10 - 65 U/L | [facility] | | | | | | LABORATORY | | + + + + + + | Estimated | 5 (L)Comment: GFR <60: | >60 | [facility] | | | GFR | CHRONIC KIDNEY [...] | | | | | | MDRD IDMS traceable | | | | | | equation.Testing | | | | | | performed at [facility], [address] | | | | | | [facility], | | | | | | [place] [address] | | | | + + + + + + + + | Specimen | + + | Blood | + + + + + + + | Performing | Address | City/State/Zipcode | Phone Number | | Organization | | | | + + + + + | [facility] | [address] | [place] [address] | [phone] | + + + + + MRI [...] Final Report Signed by: Arslan James, Raheem Sign | | | Date/Time: 01/31/2020 7:43 PM [...] Procedure Note | + + | [place], [id number] - 01/31/2020 7:47 PM PDT | | [...] | | Final Report Signed by: Arslan James, Raheem | | Sign Date/Time: 01/31/2020 7:43 PM | + + + +---------+ + + | Performing | Address | City[facility]State[facility] | Phone Number | | Organization | | | | + +---------+ + + | [facility] | | | | + +---------+ + + from Last 3 Months Additional Health Concerns + [...] +--------+ +---------+--------+ | MEDICARE | MEDICA | [id number] | 06/24/19 | [phone] | | Medica | | | RE | | 13-Pre | 5 | | re | | | PART A | | sent | | | | | | AND B | | | | | | + +--------+ +--------+ +---------+--------+ | [facility] | IHS | [id number] | | | | Indemn | | SERVICE | YELLOW | | 963-Pr | | | ity | | | HAWK | | esent | | | | + +--------+ +--------+ +---------+--------+ | [employer] | MODA | [id number] | 06/24/19 | [phone] | | Medica | | MEDICAID HMO | HEALTH | | 20-Pre | 1 | | id | | | MDCD | | sent | | | | | | [place] | | | | | | + [...] Person | Self [birth year] | [id number] | | | al/Fam | | 1965 | [phone] | [place], [place] | | | juan | | | 7 (Home) | [address] | + +--------+ +--------+ + + | Enrique Potter | Person | Self | [birth year] | [id number] | | | al/Fam | | 1965 | [phone] | [address] [place], [place] | | | juan | | | 7 (Home) | [phone] | + +--------+ +--------+ + + | Enrique Potter Jose Rafael | Person | Self | [birth year] | [id number] | | | al/Leoncio | | 1965 | [phone] | [address] [place] | | | juan | | | 7 (Home) | [phone] | + +--------+ +--------+ + + Advance Directives + + + + + | Type | Date Recorded | Patient | Explanation | | | | Industrial Relations Counselor | | + + + + + | Power of | | | | | Sterilisation Technician | | | | + + + + + | Advance | 02/01/2020 3:21 | | | | Directive | PM | | | + + + + + + + + + + | Code Status | Date | Date | Comments | | | Activated | Inactivated | | + + + + + | Full Code | 01/31/2020 | 02/02/2020 | | | | 5:54 PM | 7:04 PM | | + + + + +
--- OUTSIDE RECORDS SUMMARY | ~2020-03-11 | XMS | Encounter Summary ---
Demographics + + + | Address | [address] | | | [place] [address] | + + + | Home Phone [...] | | + + +---------+ + | M[place] | ECON | Unknown | | + + +---------+ + Care Team Providers + +------+ + | Care Reinforcing Steel Worker Wire Mesh Name | Role | Phone | + +------+ + PCP | Unavailable | + +------+ + Encounter Details +--------+ + + + + | Date | Type | Department | Care Team | Description | +--------+ + + + + | 01/08/ | Hospital | [facility] | Conversion | Mesenteric arterial | | 2013 | Encounter | CENTER [facility] | Transaction, | bleeding | | | | [address] | Provider Unknown | | | | | [place], [place] | [phone] | | | | | [address] | | | | | | [phone] | Juan Timmons MD | | | | | | [address] | | | | | | [address] [place], [place] | | | | | | [address] | | | | | | | [...] 1547 Date of Service: 01/08/131545 Status: Signed Belting Inspector: Gemini Triplett RN (Registered Nurse) Pt ready to go home, tolerated juice and crackers well. Dr. Sawyer spoke with patient and spouse regarding findings, discharge instructions given both written and orally. Will disch arge pt by wheelchair with spouse. docume nted in this encounter H&P Notes Bhanu Sawyer MD, MD - 01/08/2013 3:00 PM PDTFormatting of this note might be diffe rent from the original. H&P by Uriel Sawyer MD at 01/08/13 1500 Author: Uriel Sawyer MD Service: (none) Author Type: Physician Filed: 01/08/13 1502 Date of Service: 01/08/13 1500 Status: Signed Belting Inspector: Uriel Sawyer MD (Physician) [facility] Service: Interventional Radiology Admission History [...] W/ EGD; Surgeon: John Singleton MD; Location: [facility] ENDOSCOPY; rvice: Gastroenterology; Laterality: N/A; Av fistula placement 05/06/2012 Procedure: AV FISTULA; Surgeon: Oskar Meyer MD; Location: [facility] MAIN OR; Service: Vascul ar; Laterality: Left; Left arm possible right Unlisted procedure arthroscopy shoulder rt , ligaments Knee arthroscopy 07/07/2012 Procedure: KNEE - ARTHROSCOPY; Surgeon: Favio Raza MD; Location: [facility] MAIN OR; S ervice: Orthopedics; Laterality: Right; After 1530 Catheter removal 07/07/2012 Procedure: DIALYSIS CATHETER REMOVAL; Surgeon: Oskar Meyer MD; Location: [facility] BEDSIDE OR OCEDURE; Service: General; Laterality: Right; perm cath Dialysis fistula creation 07/07/2012 Procedure: DIALYSIS CATHETER INSERTION; Surgeon: Oskar Meyer MD; Location: [facility] BEDSIDE PROCEDURE; Service: General; Laterality: Left; temporary dialysis catheter Av fistula repair 07/11/2012 Procedure: AV FISTULA GRAFT REPAIR/REVISION; Surgeon: Oskar Meyer MD; Location: [facility] N OR; Service: Vascular; Laterality: Left; Superficialization of brachiobasilic fistula and right IJ perm cath insertion Dialysis fistula creation 07/11/2012 Procedure: DIALYSIS CATHETER INSERTION; Surgeon: Oskar Meyer MD; Location: [facility] MAIN OR; Service: Vascular; Laterality: Left; [...] times daily as ne eded. ergocalciferol (DRISDOL) 21466 UNITS capsule Take 1 capsule by mouth [...] KIDS. CURRENTLY UNEMPLOYED, BEFOR E WORKED AT [employer] IN [place]. Quit METHAMPHETAMINES PER PATIENT after t he [...] cathlab. Code Status: Prior [facility]/08/2013 documented i n this encounter [...] conscious sedation and | | | independent alf supervision performed throughout the | | | [...] needle and | | | exchanged for 4-Zimbabwean micropuncture sheath. Initial fistula | | | pressure was obtained and fistulogram obtained from the left cubital | | | fossa to the right atrium. 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 | | | 4-Zimbabwean micropuncture sheath was exchanged for 6-Zimbabwean short | | | sheath over a 0.035, angled Glidewire. Using combination of the | | | 4-Zimbabwean angled glide catheter and 0.035 angled Glidewire multiple | | | attempts to traverse the occluded distal left basilic vein was | | | unsuccessful. Subsequently, 4-Zimbabwean angled glide catheter was | | | [...] adequate conscious | | sedation and independent alf supervision performed throughout the procedure. | | [...] micropuncture needle and | | exchanged for 4-Zimbabwean micropuncture sheath. Initial fistula pressure was obtained and | | fistulogram obtained from the left cubital fossa to the right atrium. Given the | | multiple tandem stenosis in proximal left basilic vein and occlusion of at the level of | | left axilla, I decided to perform angioplasty of the venous lesions. 4-Zimbabwean | | micropuncture sheath was exchanged for 6-Zimbabwean short sheath over a 0.035, angled | | Glidewire. Using combination of the 4-Zimbabwean angled glide catheter and 0.035 angled | | Glidewire multiple attempts to traverse the occluded distal left basilic vein was | | unsuccessful. Subsequently, 4-Zimbabwean angled glide catheter was exchanged for 7 [...] conscious sedation and | | | independent alf supervision performed throughout the | | | [...] needle and | | | exchanged for 4-Zimbabwean micropuncture sheath. Initial fistula | | | pressure was obtained and fistulogram obtained from the left cubital | | | fossa to the right atrium. 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 | | | 4-Zimbabwean micropuncture sheath was exchanged for 6-Zimbabwean short | | | sheath over a 0.035, angled Glidewire. Using combination of the | | | 4-Zimbabwean angled glide catheter and 0.035 angled Glidewire multiple | | | attempts to traverse the occluded distal left basilic vein was | | | unsuccessful. Subsequently, 4-Zimbabwean angled glide catheter was | | | [...] adequate conscious | | sedation and independent alf supervision performed throughout the procedure. | | [...] micropuncture needle and | | exchanged for 4-Zimbabwean micropuncture sheath. Initial fistula pressure was obtained and | | fistulogram obtained from the left cubital fossa to the right atrium. Given the | | multiple tandem stenosis in proximal left basilic vein and occlusion of at the level of | | left axilla, I decided to perform angioplasty of the venous lesions. 4-Zimbabwean | | micropuncture sheath was exchanged for 6-Zimbabwean short sheath over a 0.035, angled | | Glidewire. Using combination of the 4-Zimbabwean angled glide catheter and 0.035 angled | | Glidewire multiple attempts to traverse the occluded distal left basilic vein was | | unsuccessful. Subsequently, 4-Zimbabwean angled glide catheter was exchanged for 7 [...]
--- OUTSIDE RECORDS SUMMARY | ~2020-03-11 | XMS | Encounter Summary ---
Demographics + + + | Address | [address] | | | [place] [address] | + + + | Home Phone [...] Team Providers + +------+ + | Care Block Chopper Hand Name | Role | Phone | + +------+ + | Andry Deng DO | PCP | | + +------+ + Encounter Details +--------+ + + + + | Date | Type | Department | Care Team | Description | +--------+ + + + + | 07/07/ | Orders Only | [facility] | Oskar Meyer MD | | | 2012 | | [facility] | [address] | | | | | OPER[address] | [place], [place] | | | | | [address] | [address] | | | | | [place], [place] | [phone] | | | | | [address] | | | | | | [phone] | | | +--------+ + + + [...] Date of Service: 07/20/12 1310 Status: Signed Shoveler: Oskar Meyer MD (Physician) ENRIQUE STANTON Date of : 1965 PREOPERATIVE DIAGNOSIS Infected tunneled dialysis catheter with bacteremia and end-stage renal disease. POSTOPERATIVE DIAGNOSIS Infected tunneled dialysis catheter with bacteremia and end-stage renal disease. PROCEDURES 1. Removal of tunneled right internal jugular Perma-Cath. 2. Placement of left internal jugular temporary dialysis catheter under ultrasound guidance. SURGEON Oskar Meyer MD METAL CNC OPERATOR None. ANESTHESIA Local. ESTIMATED BLOOD LOSS Minimal. INDICATIONS Mr. Enrique Stanton is a 47-year-old gentleman who has [...] well. There were no apparent complications. P/ P/gopal/[id number] OSKAR MEYER MD p Note - Oskar Meyer MD - 07/11/2012 5:35 PM PST Op Note signed by Oskar Meyer MD at 07/13/12 0953 Author: Oskar Meyer MD Service: (none) Author Type: Physician Filed: 07/13/12 0953 Date of Service: 07/11/12 0455 Status: Signed Shoveler: Oskar Meyer MD (Physician) ENRIQUE STANTON Date of : 1965 PREOPERATIVE DIAGNOSIS [...] over a wire. SURGEON Oskar Meyer MD METAL CNC OPERATOR None. ANESTHESIA General endotracheal anesthesia. ESTIMATED BLOOD LOSS Less than 100 mL. FLUIDS Crystalloids 250 mL. INDICATIONS Mr. Enrique Stanton is a 47-year-old gentleman with history [...] to the PACU in stable condition. P/ P//[id number] OSKAR MEYER MD documented in this encoun [...] | Testing performed at | | | [facility];[address] [place] [address];[place] [address] CULTURE | | | <10,000 CFU/ML MIXED GRAM POSITIVE AND GRAM NEGATIVE | | | POWER NO SUSCEPTIBILITY TO FOLLOW | | | Testing performed at [facility], [address] [facility], | | | [place] [address] REPORT STATUS | | | 07/12/2012 FINAL [...] | Testing performed at | | | [facility];[address] [place] [address];[place] [address] GRAM STAIN | | | 2+ WBC'S SEEN | | | NO ORGANISMS SEEN | | | Testing performed at [facility];[address] [place] [address];[place] [address] | | | CULTURE 1+ STAPHYLOCOCCUS | | | AUREUSAbnormal | | | Testing performed at [facility], [address] [place], [place] | | | [address] REPORT STATUS 07/11/2012 | | | FINAL [...] EXTERNAL LAB | | Testing performed at [facility];[address] [facility] [address] COLOR | | | PALE YELLOW Testing performed | | | at [facility];[address];[place] [address] APPEARANCE | | | CLOUDY Testing performed at [facility];[address] | | [address];[place] [address] RBC'S | | | [address] Testing performed at [facility];[address] [facility];[place], [place] | | | [address] TOTAL NUCLEATED CELLS [address] | | | Testing performed at [facility];[address] [facility];[place] [address] NEUTROPHILS | | | 100 Testing performed | | | at [facility];[address] [facility];[place] [address] CELLS COUNTED | | | 100 Testing performed at [facility];[address] [facility] | | | Bl;[place] [address] | | + + + + +---------+ [...] TIP Testing | | | performed at [facility];[address] [facility];[place] [address] CULTURE | | | GREATER THAN FIFTEEN COLONY FORMING | | | UNITS OF STAPHYLOCOCCUS AUREUSAbnormal | | | Testing performed at [facility], [address] [place] [address] | | | [place] [address] REPORT STATUS | | | 07/10/2012 FINAL [...] | Testing performed | | | at [facility];[address] [facility];[place] [address] GRAM STAIN | | | WBC'S SEEN NO ORGANISMS SEEN ON CYTOSPIN SLIDE | | | PHONED TO DR TRAN | | | AT 0045 BY LONNY READBACK | | | Testing performed at [facility];[address] [facility];[place] [address] | | | CULTURE NO GROWTH 4 DAYS | | | Testing performed at | | | [facility], [address] [facility], [place] [address] REPORT STATUS | | | 07/11/2012 FINAL [...] CONSULT Testing performed at | | | [facility];[address] [place] [address];[place] [address] | | + + + + +---------+ [...] | Testing performed | | | at [facility];[address] [place] [address];[place] [address] GRAM STAIN | | | WBC'S SEEN GRAM NEGATIVE COCCI ON CYTO SPIN SLIDE | | | PHONED TO | | | CHELSEA AT 0045 BY LJ READBACK | | | REVIEW OF SMEAR BY MICROBIOLOGY SHOWS THE FOLLOWING: NO | | | ORGANISMS SEEN | | | Testing performed at [facility], [address] [place] [address] | | | [address] CULTURE 1+ | | | STAPHYLOCOCCUS AUREUS SUSCEPTIBILITY TO FOLLOWAbnormal | | | Testing performed at [facility], [facility] | | | [place] [address] REPORT STATUS | | | 07/10/2012 FINAL [...]
--- OUTSIDE RECORDS SUMMARY | ~2020-03-11 | XMS | Encounter Summary ---
Demographics + + + | Address | [address] | | | [place] [address] | + + + | Home Phone [...] Team Providers + +------+ + | Care Copy Manager Name | Role | Phone | + +------+ + PCP | Unavailable | + +------+ + Encounter Details +--------+ + + + + | Date | Type | Department | Care Team | Description | +--------+ + + + + | 11/09/ | Hospital | [facility] | Galdino Peguero | Hyperkalemia; Anemia | | 2013 - | Encounter | [facility] | MD [address] | of chronic kidney | | | | CARE [address]LO[address] | [address] | failure; ESRD (end | | | | [address] | [place] [address] | stage renal disease) | | 2013 | | [place], [place] | [phone] | on dialysis (HCC); | | | | [address] | | HTN (hypertension); | | | | [phone] | | Hypoalbuminemia; | | | | | | Hypothyroidism; PUD | | | | | | (peptic ulcer | | | | | | disease); Secondary | | | | | | hyperparathyroidism | | | | | | (of renal origin) | | | | | | (HCC); Vitamin D | | | | | [...] Summaries by Lei Padgett MD at 11/10/13 1626 Author: Lei Padgett MD Service: (none) Author Type: Physician Filed: 11/11/13 0936 Date of Service: 11/10/134 Status: Signed Program Associate: Lei Padgett MD (Physician) Related Notes: Original Note by Lei Padgett MD (Physician) filed at 11/11/13 0016 [facility] Service: Hospitalist Physician Discharge Summary Patient ID: [...] details. In essence, Mr. Potter presented to [facility] on November 09, 2013, after it was [...] plans of how to proceed with terminal computer operator AV fistula access recreation. The patient was [...] W/ EGD; Surgeon: John Singleton MD; Location: [facility]; Se rvice: Gastroenterology; Laterality: N/A; Av fistula placement 05/06/2012 Procedure: AV FISTULA; Surgeon: Oskar Meyer MD; Location: [facility]; Service: Vascul ar; Laterality: Left; Left arm possible right Unlisted procedure arthroscopy shoulder rt , ligaments Knee arthroscopy 07/07/2012 Procedure: KNEE - ARTHROSCOPY; Surgeon: Favio Raza MD; Location: [facility]; S ervice: Orthopedics; Laterality: Right; After 1530 Catheter removal 07/07/2012 Procedure: DIALYSIS CATHETER REMOVAL; Surgeon: Oskar Meyer MD; Location: [facility] BED[facility] SD OCEDURE; Service: General; Laterality: Right; perm cath Dialysis fistula creation 07/07/2012 Procedure: DIALYSIS CATHETER INSERTION; Surgeon: Oskar Meyer MD; Location: [facility] PROCEDURE; Service: General; Laterality: Left; temporary dialysis catheter Av fistula repair 07/11/2012 Procedure: AV FISTULA GRAFT REPAIR/REVISION; Surgeon: Oskar Meyer MD; Location: [facility] OR; Service: Vascular; Laterality: Left; Superficialization of brachiobasilic fistula and right IJ perm cath insertion Dialysis fistula creation 07/11/2012 Procedure: DIALYSIS CATHETER INSERTION; Surgeon: Oskar Meyer MD; Location: [facility]; Service: Vascular; Laterality: Left; removed [...] vein. 3. Plac ement of 19 cm, 14.5-Armenian dual-lumen tunneled palindrome hemodialysis catheter in the [...] of adequa te conscious sedation and independent halfway supervision of the conscious sedation was performed [...] 3. Upper chest radiograph shows dual -lumen, 14.5-Armenian, 19-cm, tunneled dialysis catheter with its tip [...] and intervention, as per protocol at [facility]. The patient was placed supine on the x-ray table. Sonography of the lower neck vei ns revealed widely patent and compressible right jugular vein. Supraclavicular and infracla vicular regions are prepped in the usual sterile fashion. Skin and subcutaneous tissues the n infiltrated with 1% lidocaine. Right external jugular vein was accessed using a micropunc ture needle and exchanged for a 4-Armenian micropuncture sheath over a 0.018 wire. Skin in th e infraclavicular region was infiltrated with 1% lidocaine and a 5-mm skin incision was made . A 14.5-Armenian, dual-lumen, 19-cm tunneled hemodialysis catheter was placed a subcutaneous tunnel using a metallic tunneler. The 4-Armenian sheath was exchanged for a 0.035, 3-mm J-wi re with its tip in the right atrium under fluoroscopy guidance. The skin and subcutaneous t ract was dilated using at 12 and 14-Armenian facial dilators. A 15-Armenian peel-away sheath wa s placed over the [...] portion of the right atrium without incidence. 15839, 14708, 60375 Discharge Vitals: Filed Vitals: 11/10/13 0016 11/10/13 [...] 76.3 85.5 MONOPCT 6.7 4.5 Lab 11/10/13 03411/09/139 11/09/13 1830 NA 133* 133* -- K 4.6 5.7* 5.6* CL 101 98* -- CO2 19* 22* -- BUN 78* 74* -- CREATININE 9.22* 9.66* -- CALCIUM -- -- -- PROT 6.0* 6.9 -- BILITOT 0.6 0.6 -- ALKPHOS -- -- -- ALT 22 24 -- AST 18 18 -- GLUCOSE -- -- -- Phosphorus: Lab 11/10/13348 PHOS 4.2 Lab 11/10/13348 MG 2.3 Disposition: Home under family care Follow up: [facility] [address] [facility] [id number] Schedule an appointment as soon as possible for a visit in 1 week Juan Timmons MD [address] [facility] [place] [address] Schedule an appointment as soon as possible [...] nebulizer solution Commonly known as: PROVENTIL ergocalciferol 48338 UNITS capsule Commonly known as: DRISDOL Lei [...] Note by Tala Quiroz RN at 11/10/13 7742 Author: Tala Quiroz RN Service: (none) Author Type: Registered Nurse Filed: 11/10/13 1389 Date of Service: 11/10/131658 Status: Signed Program Associate: Tala Quiroz RN (Registered Nurse) DC instructions given to patient, no questions at this time. Ready for discharge onver quique Transaction, Provider Unknown - 11/10/2013 4:06 PM PDT Nurse Progress Note by Tala Quiroz RN at 11/10/13 4724 Author: Tala Quiroz RN Service: (none) Author Type: Registered Nurse Filed: 11/10/13 1606 Date of Service: 11/10/13 1606 Status: Signed Program Associate: Tala Quiroz RN (Registered Nurse) Per verbal order from Dr. Padgett, [place]URITA dc'd. Patient will discharge home, awaiting DC orders. onver quique Transaction, Provider Unknown - 11/10/2013 2:55 PM PDT Progress Notes by Khadra Venegas RD, SINDY at 11/10/13 7565 Author: Khadra Venegas RD, CDE Service: (none) Author Type: Fire Services Plumber Filed: 11/10/13 0369 Date of Service: 11/10/131454 Status: Signed Program Associate: Khadra Venegas RD, CDE (Fire Services Plumber) Has had several elevated blood sugars here. Recommend: Check ac/hs and start on low dose correctional scale insulin. Khadra Venegas RD, MPH, CDE, Fire Services Plumber 11/10/2013 2:59 PM onver quique Transaction, Provider Unknown - 11/10/2013 2:12 PM PDT Case Management by Macho Abraham MS, DIRECTOR WRITING at 11/10/13 1412 Author: Macho Abraham MS, DIRECTOR WRITING Service: (none) Author Type: Title One Kindergarten Teacher Filed: 11/10/13 1413 Date of Service: 11/10/13 1412 Status: Signed Program Associate: Macho Abraham MS, DIRECTOR WRITING (Title One Kindergarten Teacher) 11/10/13 1408 Discharge Planning Evaluation Admitting Diagnosis Hyperkalemia Readmission [...] with no needs. Pt is established to [facility] and dialysis in [place] Power of Supervisor Show Operations No Anticipated Discharge Plan Post Acute Care Needs None at this time Plan communicated to patient/family Yes Resources Financial concerns No Transportation issues No Patient/Family concerns Yes;Comment (see chart note re: transport) Anticipated Disposition Facility Type Other (Comment) (Home) Discharge planning: CM received referral that pt's son is requesting a gas voucher for ret urn to home in [place]. He states they are on fumes and have access to no money . Pt's wif e and son report that they drove to [facility] rather urgently and brought nothing with them. T he family has also asked for meals while pt has been here. Son states that they have friends in [place] but they are not answering their phone and they have no money. CM reviewed chart a nd pt's was given a gas voucher on October 28 for $30. Pt does have access to [place] [employer] transport services and CM confirmed pt's eligibility. Pt can have [place] medicaid trans port him from [place] to [facility] and vice versa. Cm also confirmed that pt has eligibility for mile age reimbursement , so in the future the patient can have family transport if he wants and stefanie love can be reimbursed for gas based on mileage. CM provided pt and family with the phone miki dao. Educated pt that [facility] would not be able to continue [...] v isiting . Patient's PCP is: [facility] Patient's insurance:Medicare, Medicaid, [facility] Coverage concerns: none Medication coverage/concerns: none Community resources utilized / needed: Re-educated re: pt's existing resources and transpor tation options pt has through [place] Medicaid Assistance in transportation: Pt and son prefer driving pt Identification of any specific education / training: re-enforce education about accessing r esources that are available to pt vs. [facility] supplementing funds to pt/family. Barriers to Discharge / Alternative housing needed: none reported. Anticipated DCP: Return to home in [place] Macho Abraham onver quique Transaction, Provider Unknown - 11/10/2013 1:30 AM PDT Progress Notes by Carmina Lara RPH at 11/10/13129 Author: Carmina Lara RPH Service: (none) Author Type: Pharmacist Filed: 11/10/13129 Date of Service: 11/10/13129 Status: Signed Program Associate: Carmina Lara RPH (Pharmacist) Clinical Pharmacy Note: Renal Monitoring Enrique Potter 48 y.o. male Height: 170.2 cm Weight: 81.7 kg Patient is on hemodialysis. Pharmacy dosing for renal function per Dr. Peguero. Currently, there are no medications needing to be adjusted. Pharmacy will continue to monit or for changes in medication orders and adjust accordingly per P & T committee. Carmina Lara PharmOnelia 11/10/2013 1:29 AM docume nted in this encounter H&P Notes Galdino Peguero MD - 11/09/2013 11:17 PM PDTFormatting of this note might be dif ferent from the original. H&P by Galdino Peguero MD at 11/09/13 9121 Author: Galdino Peguero MD Service: (none) Author Type: Physician Filed: 11/10/13 1229 Date of Service: 11/09/13 6445 Status: Signed Program Associate: Galdino Peguero MD (Physician) Related Notes: Original Note by Galdino Peguero MD (Physician) filed at 11/10/13 0549 [facility] Service: Hospitalist Admission History & Physical Date [...] W/ EGD; Surgeon: John Singleton MD; Location: [facility]; rvice: Gastroenterology; Laterality: N/A; Av fistula placement 05/06/2012 Procedure: AV FISTULA; Surgeon: Oskar Meyer MD; Location: [facility]; Service: Vascul ar; Laterality: Left; Left arm possible right Unlisted procedure arthroscopy shoulder rt , ligaments Knee arthroscopy 07/07/2012 Procedure: KNEE - ARTHROSCOPY; Surgeon: Favio Raza MD; Location: [facility]; S ervice: Orthopedics; Laterality: Right; After 1530 Catheter removal 07/07/2012 Procedure: DIALYSIS CATHETER REMOVAL; Surgeon: Oskar Meyer MD; Location: [facility] BED[facility] SD OCEDURE; Service: General; Laterality: Right; perm cath Dialysis fistula creation 07/07/2012 Procedure: DIALYSIS CATHETER INSERTION; Surgeon: Oskar Meyer MD; Location: [facility] PROCEDURE; Service: General; Laterality: Left; temporary dialysis catheter Av fistula repair 07/11/2012 Procedure: AV FISTULA GRAFT REPAIR/REVISION; Surgeon: Oskar Meyer MD; Location: [facility] OR; Service: Vascular; Laterality: Left; Superficialization of brachiobasilic fistula and right IJ perm cath insertion Dialysis fistula creation 07/11/2012 Procedure: DIALYSIS CATHETER INSERTION; Surgeon: Oskar Meyer MD; Location: [facility]; Service: Vascular; Laterality: Left; removed [...] KIDS. CURRENTLY UNEMPLOYED, BEFOR E WORKED AT [employer] IN [place]/ [employer]. Quit METHAMPHETAMINES PER PATIENT after t he [...] Code Status: Full Code. Primary Care Physician: [facility] GALDINO PEGUERO MD 11/09/2013 documente d in this encounter Consult Notes Nakul Soria MD - 11/10/2013 8:42 AM PDT Consult* by Nakul Soria MD at 11/10/13841 Author: Nakul Soria MD Service: Nephrology Author Type: Physician Filed: 11/10/1314 Date of Service: 11/10/13841 Status: Signed Program Associate: Nakul Soria MD (Physician) [facility] Service: NEPHROLOGY CONSULT Note Enrique Potter 48 y.o. [id number] male PCP is [facility] Day: LOS: 1 day Date of Admission: 11/10/2013 Requesting Physician: Dr. Reyes Reason for Admission: Hyperkalemia Reason for consult: ESRD management/hyperkalemia History Obtained From: patient, chart review CHIEF COMPLAINT: My access was clotted HISTORY OF PRESENT ILLNESS: Enrique Potter is a 48 y.o. male with ESRD secondary to Biopsy-proven Diabetic nephropathy who is dialyzed Saturday and Saturday at [place] dialysis unit via Left upper extremity brachio [...] on Saturday when he weighed in at [facility] dialysis unit. No fever, chest pain, [...] i s dialyzed Saturday and Saturday at [place] dialysis unit via Left upper extremity b rachio cephalic fistula (last HD was Saturday10/03/12). His primary application processor is Dr. Timmons. He is now Admitted [...] charting completed later after rounds. Dictation software, [employer], used which may contain error for similar [...] Notes by Mihai Lucero RN at 11/09/13 6749 Author: Mihai Lucero RN Service: (none) Author Type: Registered Nurse Filed: 11/09/132346 Date of Service: 11/09/132304 Status: Signed Program Associate: Mihai Lucero RN (Registered Nurse) Pts PICC dressing changed maintaining sterile field and sterile technique. Pt and Mihai RN wearing masks and Mihai RN wearing isolation gown. Pressure dressing and sterile gauze álvaro lied above site to control oozing of blood. Pt tolerates well. Mihai Lucero RN 11/09/132346 onver quique Transaction, Provider Unknown - 11/09/2013 11:04 PM PDT ED Notes by Mihai Lucero RN at 11/09/132303 Author: Mihai Lucero RN Service: (none) Author Type: Registered Nurse Filed: 11/09/132344 Date of Service: 11/09/132303 Status: Signed Program Associate: Mihai Lucero RN (Registered Nurse) Dr. Reyes notified pts PICC line bleeding at insertion site. Dr. Reyes requests that pressu re dressing be applied. Mihai Lucero RN 11/09/132344 Tala Rodríguez DO - 11/09/2013 9:25 PM PDTFormatting of this note might be different from the or iginal. ED Provider Notes by Tala Reyes DO at 11/09/132124 Author: Tala Reyes DO Service: (none) Author Type: Physician Filed: 11/10/132209 Date of Service: 11/09/132124 Status: Signed Program Associate: Tala Reyes DO (Physician) Procedure Orders: 1. Critical Care [[id number]] ordered by Marah Sebastian at 11/10/13 0129 [facility] Department of Emergency Medicine 11/09/2013 History of Present Illness Patient Identification Enrique Potter is a 48 y.o. male. Patient information was obtained from patient. History/Exam limitations: none. Patient presented to the Emergency Department by: Car Chief Complaint Chief Complaint Patient presents with Referral referred here from tree tapping laborer Abnormal Labs Pt presents to the ED with high potassium. Onset of symptoms was today, with a constant co urse since that time. Severity is described as moderate. The patient states he was sent here from the tree tapping laborer for high Potassium. The patient states [...] W/ EGD; Surgeon: John Singleton MD; Location: [facility]; Se rvice: Gastroenterology; Laterality: N/A; Av fistula placement 05/06/2012 Procedure: AV FISTULA; Surgeon: Oskar Meyer MD; Location: [facility]; Service: Vascul ar; Laterality: Left; Left arm possible right Unlisted procedure arthroscopy shoulder rt , ligaments Knee arthroscopy 07/07/2012 Procedure: KNEE - ARTHROSCOPY; Surgeon: Favio Raza MD; Location: [facility]; S ervice: Orthopedics; Laterality: Right; After 1530 Catheter removal 07/07/2012 Procedure: DIALYSIS CATHETER REMOVAL; Surgeon: Oskar Meyer MD; Location: [facility] SD OCEDURE; Service: General; Laterality: Right; perm cath Dialysis fistula creation 07/07/2012 Procedure: DIALYSIS CATHETER INSERTION; Surgeon: Oskar Meyer MD; Location: [facility] PROCEDURE; Service: General; Laterality: Left; temporary dialysis catheter Av fistula repair 07/11/2012 Procedure: AV FISTULA GRAFT REPAIR/REVISION; Surgeon: Oskar Meyer MD; Location: [facility]; Service: Vascular; Laterality: Left; Superficialization of brachiobasilic fistula and right IJ perm cath insertion Dialysis fistula creation 07/11/2012 Procedure: DIALYSIS CATHETER INSERTION; Surgeon: Oskar Meyer MD; Location: [facility]; Service: Vascular; Laterality: Left; removed [...] times daily. Yes CLARENCE Earl ergocalciferol (DRISDOL) 19665 UNITS capsule Take 50,000 Units by mouth [...] KIDS. CURRENTLY UNEMPLOYED, BEFOR E WORKED AT [employer]: [employer]. Quit METHAMPHETAMINES PER PATIENT after t [...] quique. ED Medication Administration from 11/09/20132041 to 11/09/20132347 Date/Time Order Dose Route Action Action by 11/09/20132307 calcium gluconate 10 % injection 1,000 mg 1,000 mg Intravenous Given Sha Lucero RN 11/09/20132304 dextrose 50 % solution 25 g 25 g Intravenous Given Mihai Lucero RN 11/09/20132306 insulin regular (HUMULIN R) injection 10 Units 10 Units Intravenous Given Mihai Lucero RN 11/09/20132309 sodium polystyrene sulfonate (KAYEXALATE) 15 GM/60ML suspension 30 g 30 g Oral Given Mihai Lucero RN 11/09/20132311 albuterol (PROVENTIL) nebulizer solution 2.5 mg 2.5 mg Nebulization Given Gaurav Hernandez, OSIRIS Filed Vitals: 11/09/13205711/09/13231211/09/13 2322 BP: 148/67 Pulse: 102 94 99 Temp: 98 F (36.7 C) TempSrc: Temporal Resp: 20 16 14 Weight: 81.647 kg (180 lb) SpO2: 98% 100% 100% Records Reviewed Nursing notes Old ED records reviewed (Using the electronic record system of [facility], [place] reviewed the records with regard to the past medical/surgical history, previous medic ations, and allergies). Laboratory Evaluation Results Procedure Component Value Ref Range Date/Time CBC with differential [[id number]] (Abnormal) Collected:11/09/132138 Order Status:Completed Updated:11/09/132220 Specimen Information:Blood [...] PLT MORPHOLOGY APPEAR NORMAL Comprehensive metabolic panel [[id number]] (Abnormal) Collected:11/09/132138 Order Status:Completed Updated:11/09/132209 Specimen Information:Blood [...] 21:39 Normal sinus rhythm at 94. Normal SD and BASSAM Normal QRS and Moose Normal QT and QTc Flatted T wave otherwise nl EKG EKG dated on 10/27/2013 is changed in comparison to today's EKG Interpreted by Tala Reyes DO ED Diagnosis Final diagnosis Hyperkalemia Disposition: ED Disposition Admit/Observation Bed request special needs: Dialysis Diagnosis?: hyperkalemia, needs dialysis in am Follow-up Information Follow up With Details Comments Contact Info [facility] Schedule an appointment as soon as possible for a visit in 1 week post-hospitalization re-evaluation ; to re-assess if you have diabetes [address] [place] [address] Juan Timmons MD Schedule an appointment as soon as possible for a visit in 1 week post-hos pitalization re-evaluation; further plans for L arm AV fistula repair/recreation [address] [facility] [address] Discharge Medications: New Prescriptions No new medications [...] its contents. DO Tala Malone DO 11/10/13 9097 documented in this en counter Plan of [...] EXTERNAL | | | | performed at [facility], [address] | | LAB | | | | [address], | | | | | | [place] [address] | | | | + + + + + + | Non- | 3.46 (L)Comment: Testing | 4.20 - 5.70 | EXTERNAL | | | Red Blood | performed at [facility], [address] | M/uL | LAB | | | Cells | [address], | | | | | Counted | [place] [address] | | | | + + + + + + | Hemoglobin | 11.5 (L)Comment: Testing | 13.2 - 17.0 | EXTERNAL | | | | performed at [facility], [address] | g/dL | LAB | | | | [address], | | | | | | [place] [address] | | | | + + + + + + | Hematocrit, | 34.1 (L)Comment: Testing | 39.0 - 50.0 % | EXTERNAL | | | POC | performed at [facility], [address] | | LAB | | | | [address], | | | | | | [place] [address] | | | | + + + + + + | MCV | 98.6Comment: Testing | 80.0 - 100.0 fl | EXTERNAL | | | | performed at [facility], [address] | | LAB | | | | [address], | | | | | | [place] [address] | | | | + + + + + + | MCH | 33.2Comment: Testing | 27.0 - 34.0 pg | EXTERNAL | | | | performed at [facility], [address] | | LAB | | | | [address], | | | | | | [place] [address] | | | | + + + + + + | MCHC | 33.7Comment: Testing | 32.0 - 35.5 | EXTERNAL | | | | performed at [facility], [address] | g/dL | LAB | | | | [address], | | | | | | [place] [address] | | | | + + + + + + | RDW-CV | 51.2Comment: Testing | 37 - 53 fl | EXTERNAL | | | | performed at [facility], [address] | | LAB | | | | [address], | | | | | | [place] [address] | | | | + + + + + + | Platelet | 174Comment: Testing | 150 - 400 K/uL | EXTERNAL | | | Count | performed at [facility], [address] | | LAB | | | Plasma | [address], | | | | | | [place] [address] | | | | + + + + + + | MPV | 7.4Comment: Testing | fl | EXTERNAL | | | | performed at [facility], [address] | | LAB | | | | [address], | | | | | | [place] [address] | | | | + + + + + + | Differentia | AUTOMATEDComment: | | EXTERNAL | | | l Type | Testing performed at | | LAB | | | | [facility], [address] | | | | | | [place] | | | | | | [address] | | | | + + + + + + | % Segmented | 76.3Comment: Testing | % | EXTERNAL | | | | performed at [facility], [address] | | LAB | | | Neutrophils | [address], | | | | | | [place] [address] | | | | + + + + + + | % | 15.1Comment: Testing | % | EXTERNAL | | | Lymphocytes | performed at [facility], [address] | | LAB | | | | [address], | | | | | | [place] [address] | | | | + + + + + + | % Monocytes | 6.7Comment: Testing | % | EXTERNAL | | | | performed at [facility], [address] | | LAB | | | | [address], | | | | | | [place] [address] | | | | + + + + + + | % | 1.5Comment: Testing | % | EXTERNAL | | | Eosinophils | performed at [facility], [address] | | LAB | | | | [address], | | | | | | [place] [address] | | | | + + + + + + | % Basophils | 0.4Comment: Testing | % | EXTERNAL | | | | performed at [facility], [address] | | LAB | | | | [address], | | | | | | [place] [address] | | | | + + + + + + | Absolute | 9.1 (H)Comment: Testing | 1.9 - 7.4 K/uL | EXTERNAL | | | Segmented | performed at [facility], [address] | | LAB | | | Neutrophils | [address], | | | | | | [place] [address] | | | | + + + + + + | Absolute | 1.8Comment: Testing | 1.0 - 3.9 K/uL | EXTERNAL | | | Lymphocytes | performed at [facility], [address] | | LAB | | | | [address], | | | | | | [place] [address] | | | | + + + + + + | Absolute | 0.8Comment: Testing | 0 - 0.8 K/uL | EXTERNAL | | | Monocytes | performed at [facility], [address] | | LAB | | | | [address], | | | | | | [place] [address] | | | | + + + + + + | Absolute | 0.2Comment: Testing | 0 - 0.5 K/uL | EXTERNAL | | | Eosinophils | performed at [facility], [address] | | LAB | | | | [address], | | | | | | [place] [address] | | | | + + + + + + | Absolute | 0.0Comment: Testing | 0 - 0.1 K/uL | EXTERNAL | | | Basophils | performed at [facility], [address] | | LAB | | | | [address], | | | | | | [place] [address] | | | | + + + [...] EXTERNAL | | | | performed at [facility], [address] | | LAB | | | | [address], | | | | | | [place] [address] | | | | + + + [...] EXTERNAL | | | | performed at [facility], [address] | | LAB | | | | [address], | | | | | | [place] [address] | | | | + + + [...] + + | Hemoglobin | 5.8Comment: The [place] | 4.0 - 6.0 % | EXTERNAL [...] | | | | | performed at [facility], [address] | | | | | [address] [facility], | | | | | | [place] [address] | | | | + + + [...] | | | | | performed at [facility], [address] | | | | | | [facility], | | | | | | [place] [address] | | | | + + + [...] | | | | | [place] [address] | | | | + + + + + + | K | 4.6Comment: Testing | 3.5 - 4.9 | EXTERNAL | | | | performed at [facility], [address] | mmol/L | LAB | | | | [address], | | | | | | [place] [address] | | | | + + + + + + | Cl | 101Comment: Testing | 99 - 109 mmol/L | EXTERNAL | | | | performed at [facility], [address] | | LAB | | | | [address], | | | | | | [place] [address] | | | | + + + + + + | CO2 | 19 (L)Comment: Testing | 23 - 32 mmol/L | EXTERNAL | | | | performed at [facility], [address] | | LAB | | | | [address], | | | | | | [place] [address] | | | | + + + + + + | Anion Gap | 18Comment: Testing | 5 - 20 mmol/L | EXTERNAL | | | | performed at [facility], [address] | | LAB | | | | [address], | | | | | | [place] [address] | | | | + + + + + + | Glucose, | 205 (H)Comment: Testing | 65 - 99 mg/dL | EXTERNAL | | | Fasting | performed at [facility], [address] | | LAB | | | | [address], | | | | | | [place] [address] | | | | + + + + + + | BUN | 78 (H)Comment: Testing | 8 - 25 mg/dL | EXTERNAL | | | | performed at [facility], [address] | | LAB | | | | [address], | | | | | | [place] [address] | | | | + + + + + + | Creatinine | 9.22 (H)Comment: Testing | 0.70 - 1.30 | EXTERNAL | | | | performed at [facility], [address] | mg/dL | LAB | | | | [address], | | | | | | [place] [address] | | | | + + + + + + | BUN/Creatin | 8Comment: Testing | | EXTERNAL | | | ine Ratio | performed at [facility], [address] | | LAB | | | | [address], | | | | | | [place] [address] | | | | + + + + + + | Calcium | 8.7Comment: Testing | 8.5 - 10.2 | EXTERNAL | | | | performed at [facility], [address] | mg/dL | LAB | | | | [address], | | | | | | [place] [address] | | | | + + + + + + | Protein, | 6.0 (L)Comment: Testing | 6.3 - 8.2 g/dL | EXTERNAL | | | Total | performed at [facility], [address] | | LAB | | | | [address], | | | | | | [place] [address] | | | | + + + + + + | Albumin | 3.5 (L)Comment: Testing | 3.6 - 5.0 g/dL | EXTERNAL | | | | performed at [facility], [address] | | LAB | | | | [address], | | | | | | [place] [address] | | | | + + + + + + | Globulin | 2.5Comment: Testing | 1.3 - 4.9 g/dL | EXTERNAL | | | | performed at [facility], [address] | | LAB | | | | [address], | | | | | | [place] [address] | | | | + + + + + + | A/G Ratio | 1.4Comment: Testing | 1.0 - 2.4 | EXTERNAL | | | | performed at [facility], [address] | | LAB | | | | [address], | | | | | | [place] [address] | | | | + + + + + + | Bilirubin | 0.6Comment: Testing | 0.1 - 1.5 mg/dL | EXTERNAL | | | Total | performed at [facility], [address] | | LAB | | | | [address], | | | | | | [place] [address] | | | | + + + + + + | ALP, | 122 (H)Comment: Testing | 35 - 115 U/L | EXTERNAL | | | External | performed at [facility], [address] | | LAB | | | | [address], | | | | | | [place] [address] | | | | + + + + + + | AST | 18Comment: Testing | 10 - 45 U/L | EXTERNAL | | | | performed at [facility], [address] | | LAB | | | | [address], | | | | | | [place] [address] | | | | + + + + + + | ALT | 22Comment: Testing | 10 - 65 U/L | EXTERNAL | | | | performed at [facility], [address] | | LAB | | | | [address], | | | | | | [place] [address] | | | | + + + [...] | | | | | | at [facility], [address] | | | | | | [employer], | | | | | | [place] [address] | | | | + + + [...] | | | | | ONLY, -COMPUTER ([id number]), | | | | | | photography editor Nereida Celis | | | | | | (25) on 11/10/2013 | | | | | | 12:43:42 AM | | | | + + + + + + + + | Specimen | + + | | + + + + + | Narrative | Performed At | + + + | [facility] | EXTERNAL LAB | + [...] | | | | performed at [facility];[address] | | LAB | | | | [address];[place] | | | | | | [address] | | | | + + + + + + | Non- | 3.73 (L)Comment: Testing | 4.20 - 5.70 | EXTERNAL | | | Red Blood | performed at [facility];[address] | M/uL | LAB | | | Cells | [address];[place] | | | | | Counted | [address] | | | | + + + + + + | Hemoglobin | 12.2 (L)Comment: Testing | 13.2 - 17.0 | EXTERNAL | | | | performed at [facility];[address] | g/dL | LAB | | | | [address];[place] | | | | | | [address] | | | | + + + + + + | Hematocrit, | 36.4 (L)Comment: Testing | 39.0 - 50.0 % | EXTERNAL | | | POC | performed at [facility];[address] | | LAB | | | | [address];[place] | | | | | | [address] | | | | + + + + + + | MCV | 97.4Comment: Testing | 80.0 - 100.0 fl | EXTERNAL | | | | performed at [facility];[address] | | LAB | | | | [address];[place] | | | | | | [address] | | | | + + + + + + | MCH | 32.7Comment: Testing | 27.0 - 34.0 pg | EXTERNAL | | | | performed at [facility];[address] | | LAB | | | | [address];[place] | | | | | | [address] | | | | + + + + + + | MCHC | 33.6Comment: Testing | 32.0 - 35.5 | EXTERNAL | | | | performed at [facility];[address] | g/dL | LAB | | | | [address];[place] | | | | | | [address] | | | | + + + + + + | RDW-CV | 50.8Comment: Testing | 37 - 53 fl | EXTERNAL | | | | performed at [facility];[address] | | LAB | | | | [address];[place] | | | | | | [address] | | | | + + + + + + | Platelet | 202Comment: Testing | 150 - 400 K/uL | EXTERNAL | | | Count | performed at [facility];[address] | | LAB | | | Plasma | [address];[place] | | | | | | [address] | | | | + + + + + + | MPV | 7.3Comment: Testing | fl | EXTERNAL | | | | performed at [facility];[address] | | LAB | | | | [address];[place] | | | | | | [address] | | | | + + + + + + | Differentia | AUTOMATEDComment: | | EXTERNAL | | | l Type | Testing performed at | | LAB | | | | [facility];[address];[place] [address] | | | | + + + + + + | % Segmented | 85.5Comment: Testing | % | EXTERNAL | | | | performed at [facility];[address] | | LAB | | | Neutrophils | [address];[place] | | | | | | [address] | | | | + + + + + + | % | 9.5Comment: Testing | % | EXTERNAL | | | Lymphocytes | performed at [facility];[address] | | LAB | | | | [address];[place] | | | | | | [address] | | | | + + + + + + | % Monocytes | 4.5Comment: Testing | % | EXTERNAL | | | | performed at [facility];[address] | | LAB | | | | [address];[place] | | | | | | [address] | | | | + + + + + + | % | 0.3Comment: Testing | % | EXTERNAL | | | Eosinophils | performed at [facility];[address] | | LAB | | | | [address];[place] | | | | | | [address] | | | | + + + + + + | % Basophils | 0.2Comment: Testing | % | EXTERNAL | | | | performed at [facility];[address] | | LAB | | | | [address];[place] | | | | | | [address] | | | | + + + + + + | Absolute | 11.5 (H)Comment: Testing | 1.9 - 7.4 K/uL | EXTERNAL | | | Segmented | performed at [facility];[address] | | LAB | | | Neutrophils | [address];[place] | | | | | | [address] | | | | + + + + + + | Absolute | 1.3Comment: Testing | 1.0 - 3.9 K/uL | EXTERNAL | | | Lymphocytes | performed at [facility];[address] | | LAB | | | | [address];[place] | | | | | | [address] | | | | + + + + + + | Absolute | 0.6Comment: Testing | 0 - 0.8 K/uL | EXTERNAL | | | Monocytes | performed at [facility];[address] | | LAB | | | | [address];[place] | | | | | | [address] | | | | + + + + + + | Absolute | 0.0Comment: Testing | 0 - 0.5 K/uL | EXTERNAL | | | Eosinophils | performed at [facility];[address] | | LAB | | | | [address];[place] | | | | | | [address] | | | | + + + + + + | Absolute | 0.0Comment: Testing | 0 - 0.1 K/uL | EXTERNAL | | | Basophils | performed at [facility];[address] | | LAB | | | | [address];[place] | | | | | | [address] | | | | + + + + + + | Platelet | ADEQUATEComment: Testing | | EXTERNAL | | | Estimate | performed at [facility];[address] | | LAB | | | | [address];[place] | | | | | | [address] | | | | + + + + + + | Differentia | SLIDE SCANNED, AGREES | | EXTERNAL | | | l Comments | WITH AUTOMATED | | LAB | | | | RESULTS.Comment: Testing | | | | | | performed at [facility];[address] | | | | | | [address];[place] | | | | | | [address] | | | | + + + + + + | RBC | RBC AND PLT MORPHOLOGY | | EXTERNAL | | | Morphology | APPEAR NORMALComment: | | LAB | | | | Testing performed at | | | | | | [facility];[address] | | | | [address];[place] [address] | | | | + + + [...] | | | | performed at [facility];[address] | mmol/L | LAB | | | | [address];[place] | | | | | | [address] | | | | + + + + + + | K | 5.7 (H)Comment: Testing | 3.5 - 4.9 | EXTERNAL | | | | performed at [facility];[address] | mmol/L | LAB | | | | [address];[place] | | | | | | [address] | | | | + + + + + + | Cl | 98 (L)Comment: Testing | 99 - 109 mmol/L | EXTERNAL | | | | performed at [facility];[address] | | LAB | | | | [address];[place] | | | | | | [address] | | | | + + + + + + | CO2 | 22 (L)Comment: Testing | 23 - 32 mmol/L | EXTERNAL | | | | performed at [facility];[address] | | LAB | | | | [address];[place] | | | | | | [address] | | | | + + + + + + | Anion Gap | 19Comment: Testing | 5 - 20 mmol/L | EXTERNAL | | | | performed at [facility];[address] | | LAB | | | | [address];[place] | | | | | | [address] | | | | + + + + + + | Glucose, | 201 (H)Comment: Testing | 65 - 99 mg/dL | EXTERNAL | | | Fasting | performed at [facility];[address] | | LAB | | | | [address];[place] | | | | | | [address] | | | | + + + + + + | BUN | 74 (H)Comment: Testing | 8 - 25 mg/dL | EXTERNAL | | | | performed at [facility];[address] | | LAB | | | | [address];[place] | | | | | | [address] | | | | + + + + + + | Creatinine | 9.66 (H)Comment: Testing | 0.70 - 1.30 | EXTERNAL | | | | performed at [facility];[address] | mg/dL | LAB | | | | [address];[place] | | | | | | [address] | | | | + + + + + + | BUN/Creatin | 8Comment: Testing | | EXTERNAL | | | ine Ratio | performed at [facility];[address] | | LAB | | | | [address];[place] | | | | | | [address] | | | | + + + + + + | Calcium | 8.1 (L)Comment: Testing | 8.5 - 10.2 | EXTERNAL | | | | performed at [facility];[address] | mg/dL | LAB | | | | [address];[place] | | | | | | [address] | | | | + + + + + + | Protein, | 6.9Comment: Testing | 6.3 - 8.2 g/dL | EXTERNAL | | | Total | performed at [facility];[address] | | LAB | | | | [address];[place] | | | | | | [address] | | | | + + + + + + | Albumin | 3.4 (L)Comment: Testing | 3.6 - 5.0 g/dL | EXTERNAL | | | | performed at [facility];[address] | | LAB | | | | [address];[place] | | | | | | [address] | | | | + + + + + + | Globulin | 3.5Comment: Testing | 1.3 - 4.9 g/dL | EXTERNAL | | | | performed at [facility];[address] | | LAB | | | | [address];[place] | | | | | | [address] | | | | + + + + + + | A/G Ratio | 1.0Comment: Testing | 1.0 - 2.4 | EXTERNAL | | | | performed at [facility];[address] | | LAB | | | | [address];[place] | | | | | | [address] | | | | + + + + + + | Bilirubin | 0.6Comment: Testing | 0.1 - 1.5 mg/dL | EXTERNAL | | | Total | performed at [facility];[address] | | LAB | | | | [address];[place] | | | | | | [address] | | | | + + + + + + | ALP, | 172 (H)Comment: Testing | 35 - 115 U/L | EXTERNAL | | | External | performed at [facility];[address] | | LAB | | | | [address];[place] | | | | | | [address] | | | | + + + + + + | AST | 18Comment: Testing | 10 - 45 U/L | EXTERNAL | | | | performed at [facility];[address] | | LAB | | | | [address];[place] | | | | | | [address] | | | | + + + + + + | ALT | 24Comment: Testing | 10 - 65 U/L | EXTERNAL | | | | performed at [facility];[address] | | LAB | | | | [address];[place] | | | | | | [address] | | | | + + + [...] | | | | | at [facility];[address];[place] [address] | | | | + + + [...]
--- OUTSIDE RECORDS SUMMARY | 2020-03-11 11:28 | XMS ---
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 Care History Medical/Surgical 02/13/2018 [facility] - PATIENT IS FOLLOWING VERY CLOSELY WITH [facility] DIRECTOR OF COMPENSATION HARDIK WATSON. - PLEASE CALL SHIRLEY AT [phone] IF PATIENT IS SEEN IN THE ED. - PATIENT HAS A LONG EXTENSIVE HX WITH METHAMPHETAMINE USAGE. - PHYSICIAN DISCRETION- TOX SCREEN BEFORE TREATMENT. Care Recommendation: - USE EXTREME CAUTION IN GIVING NARCOTICS TO THIS PATIENT. - Avoid Discharge Narcotic prescriptions if at all possible. Please use clinical judgement. 02/04/2018 [facility] - PATIENT IS CURRENTLY ON COUMADIN [...] possible. Please use clinical judgement. 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 -[facility]. -Patient does have concerns with patient [...] ED please contact Community Health WorkerBetzy at [phone]. These are guidelines and the provider should exercise clinical judgment when providing care. E.D. VISIT COUNT (12 MO.) 5 [facility] TOTAL 5 NOTE: Visits indicate total known visits. ED/UCC VISIT TRACKING (12 MO.) 03/11/2020 11:26 [facility] TYPE: Emergency COMPLAINT: - FALL 01/31/2020 10:58 [facility] TYPE: Emergency COMPLAINT: - DIZZINESS DIAGNOSES: - Dependence on renal dialysis - Type 2 diabetes mellitus with diabetic chronic kidney disease - Allergy status to other antibiotic agents status - Other machine long goods helper (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 - Gastro-esophageal reflux disease without esophagitis - Allergy status to other drugs, medicaments and biological sub - Hypertensive chronic kidney disease with stage 5 chronic kidn - End stage renal disease - Allergy status to penicillin - Dizziness and giddiness 12/30/2019 15:11 [facility] TYPE: Emergency COMPLAINT: - DIALYSIS SITE BLEEDING DIAGNOSES: - Hemorrhage due to vascular prosthetic devices, implants and g - half-way (current) use of anticoagulants - Other machine long goods helper (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 - Type 2 diabetes mellitus with diabetic chronic kidney disease - Allergy status to penicillin - Gout, unspecified - Allergy status to other drugs, medicaments and biological sub - Hypertensive chronic kidney disease with stage 5 chronic kidn - End stage renal disease - Atherosclerotic heart disease of iroqu[place] coronary artery witho 08/07/2019 18:49 [facility] [...] vascular prosthetic devices, implants and g - half-way (current) use of anticoagulants - Allergy status to other drugs, medicaments and biological sub - Atherosclerotic heart disease of iroquois coronary artery witho - Allergy status to other antibiotic agents status - Other [facility] (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 - Hypertensive chronic kidney disease with stage 5 chronic kidn 05/20/2019 15:45 [facility] [place] TYPE: Emergency COMPLAINT: - BUMP ON ARM DIAGNOSES: - Gastro-esophageal reflux disease without esophagitis - Hypertensive chronic kidney disease with stage 5 chronic kidn - Atherosclerotic heart disease of iroquois coronary artery witho - Allergy status to penicillin - Hypothyroidism, unspecified - Allergy status to other drugs, medicaments and biological sub - half-way (current) use of anticoagulants - End stage renal disease - Hypertensive chronic kidney disease with stage 5 chronic kidn - Allergy status to other antibiotic agents status - Dependence on renal dialysis - Personal history of nicotine dependence - Other specified soft tissue disorders - Type 2 diabetes mellitus with diabetic chronic kidney disease - Other machine long goods helper (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 INPATIENT VISIT TRACKING (12 MO.) 01/31/2020 17:30 [facility] TYPE: Internal Medicine DIAGNOSES: - Essential (primary) hypertension - End stage renal disease - Type 2 diabetes mellitus with unspecified complications - Dizziness and giddiness - Dependence on renal dialysis - Anemia in chronic kidney disease [id number]
[2020-03-11] MEDS ORDERED: CARVEDILOL6.25 MG PO (11:37)
== END 2020-03-11 14:28 | disposition short-term general hospital (02) ==
LOC: ED 11:25
DX: K91.841 Postprocedural hemorrhage of a digestive system organ or structure following other procedure (principal); D64.9 Anemia, unspecified; Z79.01 Long term (current) use of anticoagulants; D68.9 Coagulation defect, unspecified; I12.0 Hypertensive chronic kidney disease with stage 5 chronic kidney disease or end stage renal disease; E11.22 Type 2 diabetes mellitus with diabetic chronic kidney disease; N18.6 End stage renal disease; Z99.2 Dependence on renal dialysis; E03.9 Hypothyroidism, unspecified; K21.9 Gastro-esophageal reflux disease without esophagitis; Z87.891 Personal history of nicotine dependence; Z88.8 Allergy status to other drugs, medicaments and biological substances; Z88.0 Allergy status to penicillin; Z88.1 Allergy status to other antibiotic agents; Z79.899 Other long term (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
CPT/HCPCS: 36430; 73060; 73502; 80053; 85025; 85610; 86850; 86900; 86901; 86920; 86927; 96374; 96375; 99285-25; J3430

== ENCOUNTER 2020-03-25 14:29 | Emergency (ER) | payer MEDICARE, OTHER | END 2020-03-25 16:45 | disposition home or self-care (01) | LOC: ED 14:29 | DX: T82.838A Hemorrhage due to vascular prosthetic devices, implants and grafts, initial encounter (principal); I12.0 Hypertensive chronic kidney disease with stage 5 chronic kidney disease or end stage renal disease; E11.22 Type 2 diabetes mellitus with diabetic chronic kidney disease; N18.6 End stage renal disease; I25.10 Atherosclerotic heart disease of native coronary artery without angina pectoris; K21.9 Gastro-esophageal reflux disease without esophagitis; Z87.891 Personal history of nicotine dependence; Z88.8 Allergy status to other drugs, medicaments and biological substances; Z88.1 Allergy status to other antibiotic agents; Z88.0 Allergy status to penicillin; Z79.899 Other long term (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; Z79.01 Long term (current) use of anticoagulants ==

== ENCOUNTER 2020-04-09 13:35 | Emergency (ER) | payer MEDICARE, OTHER ==
[~2020-04-09 13:35] MED LIST changes: +CARVEDILOL6.25 MG PO
--- OUTSIDE RECORDS SUMMARY | 2020-04-09 17:00 | XMS ---
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 Care History Medical/Surgical 02/13/2018 [facility] - PATIENT IS FOLLOWING VERY CLOSELY WITH [facility] EXECUTIVE OFFICER HARDIK WATSON. - PLEASE CALL SHIRLEY AT [phone] IF PATIENT IS SEEN IN THE ED. - PATIENT HAS A LONG EXTENSIVE HX WITH METHAMPHETAMINE USAGE. - PHYSICIAN DISCRETION- TOX SCREEN BEFORE TREATMENT. Care Recommendation: - USE EXTREME CAUTION IN GIVING NARCOTICS TO THIS PATIENT. - Avoid Discharge Narcotic prescriptions if at all possible. Please use clinical judgement. 02/04/2018 [facility] - PATIENT IS CURRENTLY ON [...] all possible. Please use clinical judgement. 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 -[facility] -Patient does have concerns with [...] ED please contact Community Health WorkerBetzy at [phone]. These are guidelines and the provider should exercise clinical judgment when providing care. E.D. VISIT COUNT (12 MO.) 7 [facility] TOTAL 7 NOTE: Visits indicate total known visits. ED/UCC VISIT TRACKING (12 MO.) 04/09/2020 13:35 [facility] TYPE: Emergency COMPLAINT: - ARM PAIN/SWELLING 03/25/2020 14:29 [facility] [place] TYPE: Emergency COMPLAINT: - MULTIPLE COMPLAINTS DIAGNOSES: - Hemorrhage due to vascular prosthetic devices, implants and g - Atherosclerotic heart disease of [place] coronary artery witho - Gastro-esophageal reflux disease without esophagitis - Hypertensive chronic kidney disease with stage 5 chronic kidn - Allergy status to other antibiotic agents status - Allergy status to other drugs, medicaments and biological sub - Personal history of nicotine dependence - 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 - Type 2 diabetes mellitus with diabetic chronic kidney disease - detention (current) use of anticoagulants - Allergy status to penicillin - Hemorrhage due to vascular prosthetic devices, implants and g - End stage renal disease 03/11/2020 11:26 [facility] [place] TYPE: Emergency COMPLAINT: - FALL DIAGNOSES: - 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 - Coagulation defect, unspecified - Type 2 diabetes mellitus with diabetic chronic kidney disease - detention (current) use of anticoagulants - Allergy status to other drugs, medicaments and biological sub - Allergy status to other antibiotic agents status - End stage renal disease - Dependence on renal dialysis - Hypothyroidism, unspecified - Gastro-esophageal reflux disease without esophagitis - Hypertensive chronic kidney disease with stage 5 chronic kidn - Personal history of nicotine dependence - Postprocedural hemorrhage of a digestive system organ or stru - Allergy status to penicillin - Anemia, unspecified - Dizziness and giddiness 01/31/2020 10:58 [facility] [place] TYPE: Emergency COMPLAINT: - DIZZINESS DIAGNOSES: - Dependence on renal dialysis - Type 2 diabetes mellitus with diabetic chronic kidney disease - Allergy status to other antibiotic agents status - Other skilled nursing (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 - Gastro-esophageal reflux disease [...] vascular prosthetic devices, implants and g - 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 - 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 - Type 2 diabetes mellitus with diabetic chronic kidney disease - Allergy status to penicillin - Gout, unspecified - Allergy status to other drugs, medicaments and biological sub - Hypertensive chronic kidney disease with stage 5 chronic kidn - End stage renal disease - Atherosclerotic heart disease of [place] coronary artery witho 08/07/2019 18:49 [facility] [...] vascular prosthetic devices, implants and g - 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 - Allergy status to other drugs, medicaments and biological sub - Atherosclerotic heart disease of [place] coronary artery witho - Allergy status to other antibiotic agents status - 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 - Hypertensive chronic kidney disease with stage 5 chronic kidn 05/20/2019 15:45 [facility] [place] TYPE: Emergency COMPLAINT: - BUMP ON ARM DIAGNOSES: - Gastro-esophageal reflux disease without esophagitis - Hypertensive chronic kidney disease with stage 5 chronic kidn - Atherosclerotic heart disease of [place] coronary artery witho - Allergy status to penicillin - Hypothyroidism, unspecified - Allergy status to other drugs, medicaments and biological sub - 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 COMPLAINT: - RENAL FAILURE ENEMIA DIAGNOSES: 0. Essential (primary) hypertension 1. Hypovolemic shock 2. End stage renal disease 3. Hypertensive chronic kidney disease with stage 5 chronic kidn 4. Coagulation defect, unspecified 5. Dependence on renal dialysis 6. Unqualified visual loss, right eye, normal vision left eye 7. Atherosclerotic heart disease of [place] coronary artery witho 8. Unspecified asthma, uncomplicated 9. Hypothyroidism, unspecified 10. Gastro-esophageal reflux disease without esophagitis 11. Anemia, unspecified 12. Type 2 diabetes mellitus with diabetic chronic kidney disease 13. Personal history of other venous thrombosis and embolism 14. 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 Patient's noncompliance with renal dialysis 16. Syncope and collapse 17. Personal history of pulmonary embolism [facility]31[facility]2020 [facility] TYPE: Internal Medicine DIAGNOSES: - Essential (primary) hypertension - End stage renal disease - Type 2 diabetes mellitus with unspecified complications - Dizziness and giddiness - Dependence on renal dialysis - Anemia in chronic kidney disease [email or web address]
== END 2020-04-09 15:15 | disposition home or self-care (01) ==
LOC: ED 13:35
DX: S50.11XA Contusion of right forearm, initial encounter (principal); W22.8XXA Striking against or struck by other objects, initial encounter; Z87.891 Personal history of nicotine dependence; Z88.0 Allergy status to penicillin; Z88.8 Allergy status to other drugs, medicaments and biological substances; Z79.01 Long term (current) use of anticoagulants
CPT/HCPCS: 99283

== ENCOUNTER 2021-01-31 06:09 | Day surgery (SDC) | payer MEDICARE, OTHER ==
[~2021-01-31] VITALS: Ht 170.2 cm; Wt 81.8 kg
[~2021-01-31 06:09] MED LIST changes: +ALLOPURINOL300 MG PO; +BRIMONIDINE 0.110 ML OP; +JANTOVEN2.5 MG PO; +VITAMIN D3125 MCG PO
[2021-01-31] MEDS ORDERED: BRIMONIDINE TART5 ML OPTH (07:13)
--- NOTE | 2021-01-31 09:05 | NUR ---
01/31/21 0905 Velma Avila 0854 PATIENT ARRIVES TO PACU SLEEPING, DOES NOT RESPOND TO VERBAL STIMULI. RESP EVEN AND UNLABORED, MASK AT 10 LITERS, DECREASED TO [address] ORAL AIRWAY [address] PL[address]. LINDENENSIVE, DIAZ HAILE AWARE, AT BEDSIDE, PREPARING MEDS. 0856 PATIENT CONTINUES TO BE UNRESPONSIVE TO PAIN, ORAL AIRWAY IN PLACED. RESP EVEN AND UNLABORED, MASK CONTINUED AT 6 LITERS. DIAZ HAILE MEDICATED PATIENT FOR HYPOTENSION. 0859 PATIENT CONTINUES TO BE UNRESPONSIVE TO PAIN, ORAL AIRWAY IN PLACE. RESP EVEN AND UNLABORED, MASK CONTINUES AT 6 LITERS. PATIENT NO LONGER HYPOTENSIVE. 0904 PATIENT CONTINUES TO BE UNRESPONSIVE TO PAIN. ORAL AIRWAY IN PLACE. MASK OFF. PATIENT CONTINUES TO BE NOW NORMO/HYPERTENSIVE AFTER MEDICATED FOR HYPOTENSION. LR OFF.
--- NOTE | 2021-01-31 10:01 | OR ---
[facility] [address], [place] [address] Signed DATE OF OPERATION: 01/31/2021 SURGEON: Nehal Rachel MD PREOPERATIVE DIAGNOSIS: Screening. POSTOPERATIVE DIAGNOSES: 1. Renal failure requiring hemodialysis. 2. Unremarkable colonoscopy at age 48 at [facility]. 3. Minimal to moderate internal hemorrhoids. PROCEDURE: Colonoscopy without biopsy. ESTIMATED BLOOD LOSS: None. INDICATIONS: Carol is a 55-year-old gentleman who has renal failure requiring hemodialysis three days a week. He is being evaluated for renal transplantation at [facility]. In that regard, he requires a followup colonoscopy. I had met with Carol in the office. He has no lower GI complaints. There is no family history of colon cancer or polyps. He told me he had a negative upper and lower endoscopy at age 48 at [facility]. I gave him our brochure on colonoscopies. He understands the nature of the test. We did review the risks including, but not limited to gas bloating, crampy abdominal pain, bleeding, perforation requiring surgery, and missed diagnosis. We also reviewed the need for monitored anesthesia care given his advanced medical issues. He had expressed understanding and wished to proceed. PROCEDURE NOTE: Carol was taken into our endoscopy suite and placed in the left lateral decubitus position. He was given monitored anesthesia care per our nurse account strategist to include propofol. A digital rectal exam was performed and this was unremarkable. No external hemorrhoids. Good sphincter tone. Prostate was essentially unremarkable. The adult colonoscope was introduced and advanced under direct visualization of camera into the cecum itself. He is technically quite easy to pass the scope. His prep was quite good. We could easily see the appendiceal orifice and the ileocecal valve. The scope was slowly withdrawn. There were no polyps and no diverticulosis. The rectum was unremarkable. Upon retroflexion of the scope, he has minimal to moderate standard Electronically Signed By: NEHAL RACHEL MD 01/31/21 1001 PATIENT NAME: CAROL STANTON OPERATIVE REPORT DATE OF : 61 REPORT #: [id number] PHYSICIAN: NEHAL RACHEL MD PCP: NO PRIMARY CARE PHYSICIAN REPORT IS CONFIDENTIAL AND NOT TO BE RELEASED WITHOUT AUTHORIZATION [facility] [address] [place] [id number] Signed internal hemorrhoid columns. After this, the gas was suctioned out and colonoscope removed. Carol tolerated procedure quite well. RECOMMENDATIONS: Carol can follow up in 10 years for a repeat colonoscopy. Nehal Rachel MD [facility] /[id number] cc: [facility] Nehal Rachel MD [facility] Copies: NEHAL RACHEL MD ~ Electronically Signed By: NEHAL RACHEL MD 01/31/21 1001 PATIENT NAME: CAROL STANTON OPERATIVE REPORT DATE OF : 61 REPORT #: [id number] PHYSICIAN: NEHAL RACHEL MD PCP: NO PRIMARY CARE PHYSICIAN REPORT IS CONFIDENTIAL AND NOT TO BE RELEASED WITHOUT AUTHORIZATION
== END 2021-01-31 10:15 | disposition home or self-care (01) ==
LOC: OPS 06:09 → DS 06:09 → OPS 06:45 → DS 09:00 → OPS 09:45 → DS 09:45 → OPS 10:15
PROVIDERS: ATTEND Colon & Rectal Surgery
PROC: 0DJD8ZZ Inspection of Lower Intestinal Tract, Via Natural or Artificial Opening Endoscopic (ICD-10-PCS; principal; 2021-01-31 06:45)
DX: Z12.11 Encounter for screening for malignant neoplasm of colon (principal); N18.6 End stage renal disease; K64.8 Other hemorrhoids; Z99.2 Dependence on renal dialysis; Z20.822 Contact with and (suspected) exposure to COVID-19; Z88.0 Allergy status to penicillin; Z88.8 Allergy status to other drugs, medicaments and biological substances
CPT/HCPCS: 80053; 85025; 85610; J2370; J2704; J7030

== ENCOUNTER 2021-05-15 13:36 | Emergency (ER) | payer MEDICARE, OTHER ==
[~2021-05-15] VITALS: Ht 170.2 cm; Wt 82.0 kg
[~2021-05-15 13:36] MED LIST changes: +BRIMONIDINE TART5 ML OPTH
--- OUTSIDE RECORDS SUMMARY | 2021-05-15 13:44 | XMS ---
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 05/22/2019-[facility] PHONE: [phone] Reinaldo has no Care Guidelines for this patient. Care History Medical/Surgical 02/13/2018 [facility] - PATIENT IS FOLLOWING VERY CLOSELY WITH [facility] DRY GOODS CLERK HARDIK WATSON. - PLEASE CALL SHIRLEY AT [phone] IF PATIENT IS SEEN IN THE ED. - PATIENT HAS A LONG EXTENSIVE HX WITH METHAMPHETAMINE USAGE. - PHYSICIAN DISCRETION- TOX SCREEN BEFORE TREATMENT. Care Recommendation: - USE EXTREME CAUTION IN GIVING NARCOTICS TO THIS PATIENT. - Avoid Discharge Narcotic prescriptions if at all possible. Please use clinical judgement. 02/04/2018 [facility] - PATIENT IS CURRENTLY ON COUMADIN [...] all possible. Please use clinical judgement. 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 -[facility] -Patient does have concerns with patient memory. [...] ED please contact Community Health WorkerBetzy at [phone]. These are guidelines and the provider should exercise clinical judgment when providing care. E.D. VISIT COUNT (12 MO.) 1 [facility] TOTAL 1 NOTE: Visits indicate total known visits. ED/UCC VISIT TRACKING (12 MO.) 05/15/2021 13:[address] [facility] [place] TYPE: Emergency COMPLAINT: - BLEEDING FROM [place] INPATIENT VISIT TRACKING (12 MO.) No inpatient visits to display in this time frame [id number]
== END 2021-05-15 14:44 | disposition home or self-care (01) ==
LOC: ED 13:36
DX: T82.838A Hemorrhage due to vascular prosthetic devices, implants and grafts, initial encounter (principal); I12.0 Hypertensive chronic kidney disease with stage 5 chronic kidney disease or end stage renal disease; J45.909 Unspecified asthma, uncomplicated; I25.10 Atherosclerotic heart disease of native coronary artery without angina pectoris; E03.9 Hypothyroidism, unspecified; K21.9 Gastro-esophageal reflux disease without esophagitis; N18.6 End stage renal disease; M10.9 Gout, unspecified; E11.22 Type 2 diabetes mellitus with diabetic chronic kidney disease; Z87.891 Personal history of nicotine dependence; Z88.8 Allergy status to other drugs, medicaments and biological substances; Z88.0 Allergy status to penicillin; Z79.899 Other long term (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; Z79.01 Long term (current) use of anticoagulants
CPT/HCPCS: 99283

== ENCOUNTER 2021-05-29 13:43 | Emergency (ER) | payer MEDICARE, OTHER ==
[~2021-05-29] VITALS: Ht 170.2 cm; Wt 82.0 kg
--- OUTSIDE RECORDS SUMMARY | 2021-05-29 13:46 | XMS ---
PreManage Notification: CAROL STANTON Security Contract Officer Events No recent Security Events currently on file CRITERIA MET - [facility] - 2 Visits in 30 Days - Group Notification CARE PROVIDERS ROSA LOFTON [facility] 01/24/2018-Current PHONE: Unknown [facility] 05/22/2019-[facility] PHONE: [phone] Reinaldo has no Care Guidelines for this patient. Care History Medical/Surgical 02/13/2018 [facility] - PATIENT IS FOLLOWING VERY CLOSELY WITH [facility] SNUFF BOX FINISHER HARDIK WATSON. - PLEASE CALL SHIRLEY AT [phone] IF PATIENT IS SEEN IN THE ED. - PATIENT HAS A LONG EXTENSIVE HX WITH METHAMPHETAMINE USAGE. - PHYSICIAN DISCRETION- TOX SCREEN BEFORE TREATMENT. Care Recommendation: - USE EXTREME CAUTION IN GIVING NARCOTICS TO THIS PATIENT. - Avoid Discharge Narcotic prescriptions if at all possible. Please use clinical judgement. 02/04/2018 [facility] - PATIENT IS CURRENTLY ON COUMADIN [...] all possible. Please use clinical judgement. 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 -[facility]. -Patient does have concerns with patient [...] ED please contact Community Health WorkerBetzy at [phone]. These are guidelines and the provider should exercise clinical judgment when providing care. E.D. VISIT COUNT (12 MO.) 2 [facility] TOTAL 2 NOTE: Visits indicate total known visits. ED/UCC VISIT TRACKING (12 MO.) 05/29/2021 13:44 [facility] [place] TYPE: Emergency COMPLAINT: - BLEEDING 05/15/2021 13:37 [facility] [place] TYPE: Emergency COMPLAINT: - BLEEDING FROM [place] DIAGNOSES: - Gout, unspecified - Other terminal make up operator (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 - Unspecified asthma, uncomplicated - Atherosclerotic heart disease of [place] coronary artery without angina pectoris - Gastro-esophageal reflux disease without esophagitis - Hypertensive chronic kidney disease with stage 5 chronic kidney disease or end stage renal disease - [facility] (current) use of anticoagulants - Personal history of nicotine dependence - End stage renal disease - Hypothyroidism, unspecified - Hemorrhage due to vascular prosthetic devices, implants and grafts, initial encounter - Type 2 diabetes mellitus with diabetic chronic kidney disease - Allergy status to penicillin - Allergy status to other drugs, medicaments and biological substances INPATIENT VISIT TRACKING (12 MO.) No inpatient visits to display in this time frame [email or web address]
== END 2021-05-29 16:35 | disposition home or self-care (01) ==
LOC: ED 13:43
DX: T82.838A Hemorrhage due to vascular prosthetic devices, implants and grafts, initial encounter (principal); Z79.01 Long term (current) use of anticoagulants; I12.9 Hypertensive chronic kidney disease with stage 1 through stage 4 chronic kidney disease, or unspecified chronic kidney disease; J45.909 Unspecified asthma, uncomplicated; E03.9 Hypothyroidism, unspecified; K21.9 Gastro-esophageal reflux disease without esophagitis; I25.10 Atherosclerotic heart disease of native coronary artery without angina pectoris; N18.9 Chronic kidney disease, unspecified; M10.9 Gout, unspecified; E11.22 Type 2 diabetes mellitus with diabetic chronic kidney disease; Z87.891 Personal history of nicotine dependence; Z79.899 Other long term (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; Z88.8 Allergy status to other drugs, medicaments and biological substances; Z88.0 Allergy status to penicillin; Z88.1 Allergy status to other antibiotic agents
CPT/HCPCS: 85025; 85610; 99284

== ENCOUNTER 2021-08-07 15:56 | Emergency (ER) | payer MEDICARE, OTHER ==
[~2021-08-07] VITALS: Ht 170.2 cm; Wt 82.0 kg
--- OUTSIDE RECORDS SUMMARY | 2021-08-07 16:04 | XMS ---
PreManage Notification: CAROL STANTON Security Outreach Analyst Events No recent Security Events currently on file CRITERIA MET - [facility] - Has Care Guidelines - [facility] - 2 Visits in 30 Days - [facility] - 3 Facilities in 90 Days - Group Notification CARE PROVIDERS ROSA LOFTON [facility] 01/24/2018-[facility] PHONE: [phone] [facility] Case Management 05/30/2021-[facility] PHONE: [phone] [facility] 05/22/2019-[facility] PHONE: [phone] Reinaldo has no Care Guidelines for this patient. Care History Medical/Surgical 05/30/2021 [facility] - PATIENT IS [facility] ELIGIBLE, \T\middot;\T\nbsp; PLEASE REFER PATIENT TO [facility] FOR NON EMERGENT MEDICAL NEEDS. \T\middot;\T\nbsp; [facility] CAN SEE PATIENTS SAME DAY FOR APTS IF PATIENT CALLS FIRST THING IN THE MORNING. 02/13/2018 [facility] - PATIENT IS FOLLOWING VERY CLOSELY WITH [facility] ROAD DESIGN ENGINEER HARDIK WATSON. - PLEASE CALL SHIRLEY AT [phone] IF PATIENT IS SEEN IN THE ED. [...] at all possible. Please use clinical judgement. E.D. VISIT COUNT (12 MO.) 1 Rohan Morales 1 [facility] and [facility] [address] [facility]. TOTAL 5 NOTE: Visits indicate total known visits. ED/UCC VISIT TRACKING (12 MO.) 08/07/2021 15:57 [facility] [place] TYPE: Emergency COMPLAINT: - HAND PAIN 07/23/2021 20:42 [facility] TYPE: Emergency DIAGNOSES: 20586. Thumb pain 58225. Pain in right finger(s) 07/22/2021 06:19 [facility]gram [place] TYPE: Emergency DIAGNOSES: - Unspecified abdominal pain - Abd Pain - Abdominal Pain 05/29/2021 13:44 [facility] [place] TYPE: Emergency COMPLAINT: - BLEEDING DIAGNOSES: - Allergy status to penicillin - Gout, unspecified - Gastro-esophageal reflux disease without esophagitis - Allergy status to other drugs, medicaments and biological substances - Other nursing home (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 - Chronic kidney disease, unspecified - Atherosclerotic heart disease of [place] coronary artery without angina pectoris - Hypothyroidism, unspecified - Hemorrhage due to vascular prosthetic devices, implants and grafts, initial encounter - Type 2 diabetes mellitus with diabetic chronic kidney disease - Hypertensive chronic kidney disease with stage 1 through stage 4 chronic kidney disease, or unspecified chronic kidney disease - Unspecified asthma, uncomplicated - Personal history of nicotine dependence - Hemorrhage due to vascular prosthetic devices, implants and grafts, initial encounter - import/export analyst (current) use of anticoagulants - Allergy status to other antibiotic agents 05/15/2021 13:37 [facility] [place] TYPE: Emergency COMPLAINT: - BLEEDING FROM [place] DIAGNOSES: - Gout, unspecified - Other fellmongery worker (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 - Unspecified asthma, uncomplicated - Atherosclerotic heart disease of [place] coronary artery without angina pectoris - Gastro-esophageal reflux disease without esophagitis - Hypertensive chronic kidney disease with stage 5 chronic kidney disease or end stage renal disease - import/export analyst (current) use of anticoagulants - Personal history of nicotine dependence - End stage renal disease - Hypothyroidism, unspecified - Hemorrhage due to vascular prosthetic devices, implants and grafts, initial encounter - Type 2 diabetes mellitus with diabetic chronic kidney disease - Allergy status to penicillin - Allergy status to other drugs, medicaments and biological substances INPATIENT VISIT TRACKING (12 MO.) 06/30/2021 20:40 [facility] TYPE: Nephrology DIAGNOSES: 21767. Bacteremia 12596. import/export analyst (current) use of anticoagulants 26049. Personal history of other medical treatment 23798. Other specified postprocedural states 54156. Methicillin susceptible Staphylococcus aureus infection as the cause of diseases classified elsewhere 71246. Hypertension secondary to other renal disorders 14948. Chronic obstructive pulmonary disease, unspecified 77277. Type 2 diabetes mellitus with diabetic chronic kidney disease 46083. Chronic systolic (congestive) heart failure 59711. Peptic ulcer, site unspecified, unspecified as acute or chronic, without hemorrhage or perforation 69410. End stage renal disease 41084. Other psychoactive substance abuse, uncomplicated 16539. Dependence on renal dialysis 82860. Compression of vein [id number]
[2021-08-07] MEDS ORDERED: HYDROCODON-ACE1 EA11 PO (17:19)
== END 2021-08-07 17:28 | disposition home or self-care (01) ==
LOC: ED 15:56
DX: M79.621 Pain in right upper arm (principal); I12.0 Hypertensive chronic kidney disease with stage 5 chronic kidney disease or end stage renal disease; E11.22 Type 2 diabetes mellitus with diabetic chronic kidney disease; N18.6 End stage renal disease; J45.909 Unspecified asthma, uncomplicated; I25.10 Atherosclerotic heart disease of native coronary artery without angina pectoris; K21.9 Gastro-esophageal reflux disease without esophagitis; M10.9 Gout, unspecified; M00.9 Pyogenic arthritis, unspecified; Z87.891 Personal history of nicotine dependence; Z88.0 Allergy status to penicillin; Z88.8 Allergy status to other drugs, medicaments and biological substances; Z79.899 Other long term (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; Z79.01 Long term (current) use of anticoagulants
CPT/HCPCS: 99283

== ENCOUNTER 2021-08-11 16:48 | Emergency (ER) | payer MEDICARE, OTHER ==
[~2021-08-11] VITALS: Ht 170.2 cm; Wt 67.0 kg
[~2021-08-11 16:48] MED LIST changes: +HYDROCODON-ACE1 EA11 PO
--- OUTSIDE RECORDS SUMMARY | 2021-08-11 16:50 | XMS ---
PreManage Notification: CARLO STANTON Security Appeals Manager Events No recent Security Events currently on file CRITERIA MET - [facility] - 3 Facilities in 90 Days - [facility] - 2 Visits in 30 Days - Group Notification - PDMP - 6 ED Visits in 6 Months - [facility] - Has Care Guidelines CARE PROVIDERS ROSA LOFTON [facility] 01/24/2018-[facility] PHONE: [phone] [facility] 05/22/2019-[facility] PHONE: [phone] [facility] Case Management 05/30/2021-[facility] PHONE: [phone] Reinaldo has no Care Guidelines for this patient. Care History Medical/Surgical 05/30/2021 [facility] - [facility], \T\middot;\T\nbsp; PLEASE REFER PATIENT TO [facility] FOR NON EMERGENT MEDICAL NEEDS. \T\middot;\T\nbsp; [facility] CAN SEE PATIENTS SAME DAY FOR APTS IF PATIENT CALLS FIRST THING IN THE MORNING. 02/13/2018 [facility] - PATIENT IS FOLLOWING VERY CLOSELY WITH [facility] AUTOMOBILE GLASS TECHNICIAN HARDIK WATSON. - PLEASE CALL SHIRLEY AT [phone] IF PATIENT IS SEEN IN THE ED. - PATIENT HAS A LONG EXTENSIVE HX WITH METHAMPHETAMINE USAGE. - PHYSICIAN DISCRETION- TOX SCREEN BEFORE TREATMENT. Care Recommendation: - USE EXTREME CAUTION IN GIVING NARCOTICS TO THIS PATIENT. - Avoid Discharge Narcotic prescriptions if at all possible. Please use clinical judgement. 02/04/2018 [facility] - PATIENT IS CURRENTLY ON COUMADIN [...] COUNT (12 MO.) 1 Rohan Morales 1 [facility] and [facility] 4 [facility]. TOTAL 6 NOTE: Visits indicate total known visits. ED/UCC VISIT TRACKING (12 MO.) 08/11/2021 16:48 [facility] [place] TYPE: Emergency COMPLAINT: - LOSS OF APPETITE 08/07/2021 15:57 [facility] [place] TYPE: Emergency COMPLAINT: - HAND PAIN DIAGNOSES: - Allergy status to penicillin - Other marine oil terminal superintendent (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 - Unspecified asthma, uncomplicated - Hypertensive chronic kidney disease with stage 5 chronic kidney disease or end stage renal disease - Pain in right arm - End stage renal disease - Gout, unspecified - Pyogenic arthritis, unspecified - [facility] (current) use of anticoagulants - Atherosclerotic heart disease of [place] coronary artery without angina pectoris - Personal history of nicotine dependence - Pain in right upper arm - Gastro-esophageal reflux disease without esophagitis - Type 2 diabetes mellitus with diabetic chronic kidney disease - Allergy status to other drugs, medicaments and biological substances 07/23/2021 20:42 [facility] TYPE: Emergency DIAGNOSES: 07028. Thumb pain 16761. Pain in right finger(s) 07/22/2021 06[facility] TYPE: Emergency DIAGNOSES: - Unspecified abdominal pain - Abd Pain - Abdominal Pain 05/29/2021 13:[address] [facility] [place] [facility]: Emergency COMPLAINT: - BLEEDING DIAGNOSES: - Allergy status to penicillin - Gout, unspecified - Gastro-esophageal reflux disease without esophagitis - Allergy status to other drugs, medicaments and biological substances - Other marine oil terminal superintendent (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 - Chronic kidney disease, unspecified - Atherosclerotic heart disease of [place] coronary artery without angina pectoris - Hypothyroidism, [...] devices, implants and grafts, initial encounter - [facility] (current) use of anticoagulants - Allergy status to other antibiotic agents 05/15/2021 13:[address] [facility] [place] TYPE: Emergency COMPLAINT: - BLEEDING FROM [place] DIAGNOSES: - Gout, unspecified - Other half-way (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 - Unspecified asthma, uncomplicated - Atherosclerotic heart disease of [place] coronary artery without angina pectoris - Gastro-esophageal reflux disease without esophagitis - Hypertensive chronic kidney disease with stage 5 chronic kidney disease or end stage renal disease - marine oil terminal superintendent (current) use of anticoagulants - Personal history of nicotine dependence - End stage renal disease - Hypothyroidism, unspecified - Hemorrhage due to vascular prosthetic devices, implants and grafts, initial encounter - Type 2 diabetes mellitus with diabetic chronic kidney disease - Allergy status to penicillin - Allergy status to other drugs, medicaments and biological substances INPATIENT VISIT TRACKING (12 MO.) 06/30/2021 20:40 [facility] TYPE: Nephrology DIAGNOSES: 46303. Bacteremia 92188. [facility] (current) use of anticoagulants 72849. Personal history of other medical treatment 13958. Other specified postprocedural states 67164. Methicillin susceptible Staphylococcus aureus infection as the cause of diseases classified elsewhere 55510. Hypertension secondary to other renal disorders 54425. Chronic obstructive pulmonary disease, unspecified 51372. Type 2 diabetes mellitus with diabetic chronic kidney disease 52819. Chronic systolic (congestive) heart failure 11700. Peptic ulcer, site unspecified, unspecified as acute or chronic, without hemorrhage or perforation 73267. End stage renal disease 44987. Other psychoactive substance abuse, uncomplicated . Dependence on renal dialysis . Compression of vein [email or web address]
[2021-08-11] MEDS ORDERED: PREDNISONE5 MG PO (17:08)
[2021-08-11] MEDS ORDERED: ELIQUIS5 MG PO (17:08)
[2021-08-11] MEDS ORDERED: LEVOTHYROXINE125 MCG PO (17:09)
[2021-08-11] MEDS ORDERED: FAMOTIDINE20 MG PO (17:10)
[2021-08-11] MEDS ORDERED: SULFAMETHOXAZO1 EACH PO (17:10)
[2021-08-11] MEDS ORDERED: OMEPRAZOLE40 MG PO (17:10)
[2021-08-11] MEDS ORDERED: TRADJENTA5 MG PO (17:10)
[2021-08-13] MEDS ORDERED: TACROLIMUS1 MG PO (04:08)
[2021-08-13] MEDS ORDERED: BACTRIM DS TAB1 EACH PO (04:10)
[2021-08-13] MEDS ORDERED: MYCOPHENOLATE250 MG PO (04:10)
[2021-08-13] MEDS ORDERED: VALCYTE450 MG PO (04:11)
[2021-08-13] MEDS ORDERED: ONDANSETRON ODT4 MG PO (08:50)
== END 2021-08-13 09:19 | disposition home or self-care (01) ==
LOC: ED 16:48
DX: N17.9 Acute kidney failure, unspecified (principal); R10.32 Left lower quadrant pain; Z94.0 Kidney transplant status; J45.909 Unspecified asthma, uncomplicated; I25.10 Atherosclerotic heart disease of native coronary artery without angina pectoris; E03.9 Hypothyroidism, unspecified; K21.9 Gastro-esophageal reflux disease without esophagitis; M10.9 Gout, unspecified; E11.22 Type 2 diabetes mellitus with diabetic chronic kidney disease; I12.0 Hypertensive chronic kidney disease with stage 5 chronic kidney disease or end stage renal disease; N18.6 End stage renal disease; M00.9 Pyogenic arthritis, unspecified; Z87.891 Personal history of nicotine dependence; Z88.0 Allergy status to penicillin; Z88.8 Allergy status to other drugs, medicaments and biological substances; Z79.899 Other long term (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; Z79.52 Long term (current) use of systemic steroids; Z79.01 Long term (current) use of anticoagulants; Z20.822 Contact with and (suspected) exposure to COVID-19
CPT/HCPCS: 36415; 74176; 80048; 80053; 81001; 83605; 83735; 85025; 96374; 96375; 96376; 99284-25; C9113; C9803; J1170; J2405; J2930; J7030; U0003

== ENCOUNTER 2021-10-04 12:09 | Inpatient (IN) | payer MEDICARE, OTHER ==
[~2021-10-04] VITALS: Ht 170.2 cm; Wt 72.8 kg
[~2021-10-04 12:09] MED LIST changes: +BACTRIM DS TAB1 EACH PO; -BRIMONIDINE TART5 ML OPTH; +BRIMONIDINE TART5 ML OS; +ELIQUIS5 MG PO; +FAMOTIDINE20 MG PO; +LEVOTHYROXINE125 MCG PO; +MYCOPHENOLATE250 MG PO; +ONDANSETRON ODT4 MG PO; +PREDNISONE5 MG PO; +SULFAMETHOXAZO1 EACH PO; +TACROLIMUS1 MG PO; +TRADJENTA5 MG PO; +VALCYTE450 MG PO
--- OUTSIDE RECORDS SUMMARY | 2021-10-04 12:12 | XMS ---
PreManage Notification: CAROL STANTON Security Merchant Miller Events No recent Security Events currently on file CRITERIA MET - Group Notification - PDMP - 6 ED Visits in 6 Months - [facility] - 3 Facilities in 90 Days - [facility] - Has Care Guidelines CARE PROVIDERS ROSA LOFTON [facility] 01/24/2018-[facility] PHONE: [phone] [facility] Case Management 05/30/2021-[facility] PHONE: [phone] [facility] 05/22/2019-[facility] PHONE: [phone] Reinaldo has no Care Guidelines for this patient. Care History Medical/Surgical 05/30/2021 [facility] - PATIENT IS [facility] ELIGIBLE, \T\middot;\T\nbsp; PLEASE REFER PATIENT TO [facility] FOR NON EMERGENT MEDICAL NEEDS. \T\middot;\T\nbsp; [facility] CAN SEE PATIENTS SAME DAY FOR APTS IF PATIENT CALLS FIRST THING IN THE MORNING. 02/13/2018 [facility] - PATIENT IS FOLLOWING VERY CLOSELY WITH [facility] FOOD COURT TEAM MEMBER HARDIK WATSON. - PLEASE CALL SHIRLEY AT [phone] IF PATIENT IS SEEN IN THE ED. - PATIENT HAS A LONG EXTENSIVE HX WITH METHAMPHETAMINE USAGE. - PHYSICIAN DISCRETION- TOX SCREEN BEFORE TREATMENT. Care Recommendation: - USE EXTREME CAUTION IN GIVING NARCOTICS TO THIS PATIENT. - Avoid Discharge Narcotic prescriptions if at all possible. Please use clinical judgement. 02/04/2018 [facility] - PATIENT IS CURRENTLY ON [...] COUNT (12 MO.) 1 Rohan Morales 1 [facility] [address] [facility] 5 [facility] TOTAL 7 NOTE: Visits indicate total known visits. ED/UCC VISIT TRACKING (12 MO.) 10/04/2021 12:10 [facility] [place] TYPE: Emergency COMPLAINT: - ABNORMAL LABS 08/11/2021 16:48 [facility] [place] TYPE: Emergency COMPLAINT: - LOSS OF APPETITE DIAGNOSES: - Allergy status to other drugs, medicaments and biological substances - Hypothyroidism, unspecified - Unspecified abdominal pain - Other detention (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 - Type 2 diabetes mellitus with diabetic chronic kidney disease - correction (current) use of anticoagulants - Allergy status to penicillin - Personal history of nicotine dependence - Acute kidney failure, unspecified - Unspecified asthma, uncomplicated - Kidney transplant status - End stage renal disease - Hypertensive chronic kidney disease with stage 5 chronic kidney disease or end stage renal disease - director long term care (current) use of systemic steroids - Left lower quadrant pain - Gastro-esophageal reflux disease without esophagitis - Gout, unspecified - Pyogenic arthritis, unspecified - Atherosclerotic heart disease of [place] coronary artery without angina pectoris 08/07/2021 15:57 [facility] [place] TYPE: Emergency COMPLAINT: - HAND PAIN DIAGNOSES: - Allergy status to penicillin - Other detention (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 - Unspecified asthma, uncomplicated - Hypertensive chronic kidney disease with stage 5 chronic kidney disease or end stage renal disease - Pain in right arm - End stage renal disease - Gout, unspecified - Pyogenic arthritis, unspecified - correction (current) use of anticoagulants - Atherosclerotic heart disease of [place] coronary artery without angina pectoris - Personal history of nicotine dependence - Pain in right upper arm - Gastro-esophageal reflux disease without esophagitis - Type 2 diabetes mellitus with diabetic chronic kidney disease - Allergy status to other drugs, medicaments and biological substances 07/23/2021 20:42 [facility] TYPE: Emergency DIAGNOSES: 85621. Thumb pain 09477. Pain in right finger(s) 07/22/2021 06:19 Rohan Ingram [place] TYPE: Emergency DIAGNOSES: - Unspecified abdominal pain - Abd Pain - Abdominal Pain 05/29/2021 13:44 [facility] [place] TYPE: Emergency COMPLAINT: - BLEEDING DIAGNOSES: - Allergy status to penicillin - Gout, unspecified - Gastro-esophageal reflux disease without esophagitis - Allergy status to other drugs, medicaments and biological substances - Other detention (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 - Chronic kidney disease, unspecified - Atherosclerotic heart disease of [place] coronary artery without angina pectoris - Hypothyroidism, [...] devices, implants and grafts, initial encounter - correction (current) use of anticoagulants - Allergy status to other antibiotic agents 05/15/2021 13:37 [facility] [place] TYPE: Emergency COMPLAINT: - BLEEDING FROM [place] DIAGNOSES: - Gout, unspecified - Other meterman (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 - Unspecified asthma, uncomplicated - Atherosclerotic heart disease of [place] coronary artery without angina pectoris - Gastro-esophageal reflux disease without esophagitis - Hypertensive chronic kidney disease with stage 5 chronic kidney disease or end stage renal disease - correction (current) use of anticoagulants - Personal history of nicotine dependence - End stage renal disease - Hypothyroidism, unspecified - Hemorrhage due to vascular prosthetic devices, implants and grafts, initial encounter - Type 2 diabetes mellitus with diabetic chronic kidney disease - Allergy status to penicillin - Allergy status to other drugs, medicaments and biological substances INPATIENT VISIT TRACKING (12 MO.) 06/30/2021 20:40 [facility] TYPE: Nephrology DIAGNOSES: 91454. Bacteremia 57906. director long term care (current) use of anticoagulants 86264. Personal history of other medical treatment 39770. Other specified postprocedural states 64994. Methicillin susceptible Staphylococcus aureus infection as the cause of diseases classified elsewhere 13629. Hypertension secondary to other renal disorders 07373. Chronic obstructive pulmonary disease, unspecified 58514. Type 2 diabetes mellitus with diabetic chronic kidney disease 43593. Chronic systolic (congestive) heart failure 76930. Peptic ulcer, site unspecified, unspecified as acute or chronic, without hemorrhage or perforation 97683. End stage renal disease 72154. Other psychoactive substance abuse, uncomplicated 05489. Dependence on renal dialysis 89072. Compression of vein [email or web address]
[2021-10-04] MEDS ORDERED: HYDROCODON-ACE1 EA11 PO (12:49)
--- NOTE | 2021-10-04 18:30 | NUR ---
PATIENT ADMITTED TO CCU AT 1800 FOR TIFFANIE AND HHS. PATIENT ABLE TO STAND AND PIVOT TO CCU BED. PT TO BE STARTED ON INSULIN GTT. PT ARRIVES W/O METAL TUBE CUTTER AND PLACED ON THIS UPON ARRIVAL TO CCU. PT ON ROOM AIR, DENIES ANY SHORTNESS OF BREATH. PT HAD A KIDNEY TRANSPLANT ON 07/10/21 AT [facility]. PT REPORTS THAT HE HAS BEEN BACK AND FORTH FROM [facility] TO [facility] TO HOME IN THE LAST COUPLE OF WEEKS, AND WAS SUPPOSED TO GOING BACK TO [facility] TOMORROW. PT REPORTS THE LAST TIME HE HAD DIALYSIS WAS AFTER THE TRANSPLANT, IN JUNE. PT UP TO [facility] AND HAD A LIQUID BM. CLEAR LIQUID DM TRAY ORDERED FOR PATIENT.
--- NOTE | 2021-10-04 19:03 | NUR ---
CBG 336 - INSULIN GTT TURNED DOWN TO 6 UNITS/HR. PT SITTING UP EATING CLEAR LIQUID DM TRAY. SODIUM BICARB GTT REMAINS ON AT 250 ML/HR.
--- NOTE | 2021-10-04 19:30 | NUR ---
RECEIVED REPORT FROM DAY SHIFT RN. AT THE TIME OF ASSESSMENT. PT REPORTS CHRONIC PAIN TO RT ARM, ASKNG FOR PAIN MEDS. PRN NORCO GIVEN TO PT AND HOT PACK APPLIED TO RT ARM. PTS INSULIN GTT AT THE TIME AT 6 UNITS PER HR. WILL RECHECK AT 1999. PT RESP EVEN AND UNLABORED. WAITING ON FAMILY TO BRING ANTIREJECTION RENAL MEDS. CALL LIGHT WITHIN REACH WILL CONTINUE TO MONITOR.
--- NOTE | 2021-10-04 20:30 | NUR ---
PTS FAMILY REBECCA IN ANTIREJECTION MEDS IN PILL DISPENSER. QUESTIONED SISTER GOPI ABOUT PILL BOTTLES TO IDENTIFY MEDS. REPORTS SHE DID NOT BRING AND ONLY BROUGHT IN MEDS IN DISPENSER BUT WILL TAKE THE REST HOME. PT TOOK MEDS, SISTER WAS ABOUT TO GIVE PT PAIN MEDS. I INFORMED FAMILY THAT WE DO NOT WANT THEM GIVING HIM PAIN MEDS WE ARE ALSO GIVING HIM PAIN MEDS AND IT COULD COMPROMISE HIS BREATHING. FAMILY VERBALIZED UNDERSTANDING. DR MENDEZ MADE AWARE OF SITUATTION AND OF BG 133 AT THIS TIME . DC INSULIN GTT NEW ORDER TO DO AC.HS AND 0300 AT THIS TIME. WAITING ON 2200 LABS . CALL LIGHT WITHIN REACH
--- NOTE | 2021-10-04 21:00 | NUR ---
ASSISTED PT TO BSC, PT REPORTS DIZZINESS AND FEELS SLEEPY WITH PAIN MEDS. PT TOLERATED WELL. VSS RESP EVEN AND UNLABORED. CALL LIGHT WITHIN REACH WILL CONTINUE TO MONITOR.
--- NOTE | 2021-10-04 22:00 | NUR ---
FAMILY IN ROOM VISITING PT. LAB IN TO DRAW 2200 LABS. LONG ACTING INSULIN GIVEN TO PT. PT EATING PUDDING. CALL LIGHT WITHIN REACH WILL CONTINUE TO MONITOR.
--- NOTE | 2021-10-05 00:28 | NUR ---
PT RESTING IN BED IN NO ACUTE DISTRESS . PT AWAKE WATCHING TV, ASKING FOR SNACKS. CALL LIGHT WITHIN REACH WILL CONTINUE TO MONITOR.
--- NOTE | 2021-10-05 03:26 | NUR ---
0300 bg 251, 3 units given per order. Pt denies any concerns at this time . Call light within reach will continue to monitor.
--- NOTE | 2021-10-05 05:59 | NUR ---
PT LAYING IN BED IN NO ACUTE DISTRESS. DENIES ANY CONCERNS AT THIS TIME. CALL LIGHT WITHIN REACH WILL CONTINUE TO MONITOR.
--- NOTE | 2021-10-05 08:12 | NUR ---
VITALS CHARTED. PATIENT NOW SITTING UP IN CHAIR FOR BREAKFAST. CALL LIGHT IN EASY REACH. FACE AND HANDS WASHED. LINENS CHANGED
--- NOTE | 2021-10-05 09:00 | NUR ---
Spoke with pt. He lives with his adult son. in a house with 2 steps. Pt denies issues and staes he is acitve. He uses a cane, he does not drive. States he does his own shopping and cooking. Plans on dc to home when cleared medically.
--- NOTE | 2021-10-05 09:04 | NUR ---
ASSESSMENT COMPLETED. PT STATES GENERALIZED PAIN HAS DECREASED, BUT DOES COMPLAIN OF WEAKNESS. PT ATE 100% OF BREAKFAST. AMBULATED TO BATHROOM WITH ONE PERSON ASSIST. STEADY ON FEET. HEART RATE AND RESPIRATIONS REMAINED WNL WITH ACTIVITY. PT NOW RESTING IN CHAIR. PLAN OF CARE FOR DAY ESTABLISHED. CALL LIGHT WITHIN REACH. WILL CONTINUE TO MONITOR
--- NOTE | 2021-10-05 09:18 | NUR ---
PT COMPLAINS OF RIGHT SHOULDER PAIN AND IS REQUESTING PAIN MEDICATION AT THIS TIME. PT GIVEN PRN NORCO (SEE EMAR). WILL CONTINUE TO MONITOR.
--- NOTE | 2021-10-05 09:48 | NUR ---
CALL LIGHT ANSWERED, SBA WITH PATIENT TO BR FOR LOOSE/LIQUID STOOL. PATIENT NOW IN BED AND FAMILY IN TO VISIT. CALL LIGHT AND PERSONAL ITEMS IN REACH
--- NOTE | 2021-10-05 10:30 | NUR ---
PT FAMILY AT BEDSIDE. DISCUSSED PLAN OF CARE. PT FAMILY BROUGHT IN ANTI - REJECTION MEDICATIONS. GIVEN TO PHARMACY AT THIS TIME.
--- NOTE | 2021-10-05 12:23 | NUR ---
IN ROOM WITH DR MENDEZ FOR ASSESSMENT. PLAN OF CARE ESTABLISHED TO MOVE PT TO MEDICAL FLOOR. ALL PT QUESTIONS ANSWERED. CALL LIGHT WITHIN REACH. IV FLUIDS INFUSING. PT EATING LUNCH AT THIS TIME.
[2021-10-05] MEDS ORDERED: K-PHOS NEUTRAL250 MG PO (12:59)
--- NOTE | 2021-10-05 14:18 | NUR ---
PT CALL LIGHT ON. PT REQUESTS ASSISTANCE UP TO RESTROOM. STAND BY ASSIST UP TO RESTROOM. PT VOIDS AND HAS BOWEL MOVEMENT. PT PERFORMS SELF JAS CARE. STAND BY ASSIST BACK TO CHAIR. PT CONTINUES WATCHING TV. NO ADDITIONAL REQUESTS OR COMPLAINTS. CALL LIGHT WITHIN REACH.
--- NOTE | 2021-10-05 15:29 | NUR ---
REPORT RECEIVED FROM LINDA STUDENT NURSE. AWAITING PTS ARRIVAL TO MED/SURG.
--- NOTE | 2021-10-05 16:26 | NUR ---
PT ARRIVED FROM CCU BY BED. PT DENIES PAIN AND NAUSEA. IV ASSESSED, WNL. NO S/S OF PHELBITIS NOTED. PT ALERT AND OREINTED TO ALL. RIGHT PUPIL FOGGY AND MORE DIALATED. PT REPORTS THIS IS BASELINE AND HE CANNOT SEE OUT OF HIS RIGHT EYE AT ALL. LEFT EYE RESPONDS APPROPRIATLY. LUNG SOUNDS CLEAR. PT TOELRATING ROOM AIR WITH OXGYEN SATURATIONS WELL ABOVE 94%. PT REPORTS OCCATIONAL NONPRODUCTIVE COUGH. HEART TONES REGULAR. PT REPORTS HE IS "PEEING A LOT MORE" TODAY. PT VERBALIZES UNDERSTANDING OF ELEVATED BLOOD SUGAR. FISTULA TO RIGHT UPPER ARM WNL. NO ADDITIONAL REQUESTS OR COMPLAINTS. PT VERBALIZES UNDERSTANDING OF NEW UNIT AND CALL LIGHT. NO ADDITIONAL REQUESTS OR COMPLAINTS. CALL LIGHT WITHIN REACH. BED RAILS UP. BED ALARM ON.
--- NOTE | 2021-10-05 17:09 | NUR ---
DINNER ARRIVED. THIS RN TO ROOM TO CHECK ON PT. INSULIN GIVEN. PT WATCHING TV AND EATING DINNER. PT DENIES ADDITIONAL REQUESTS OR COMPLAINTS. CALL LIGHT WITHIN REACH. BED RAILS UP. BED ALARM ON.
--- NOTE | 2021-10-05 17:28 | NUR ---
PT HERE FOR TIFFANIE. PT UP WITH STAND BY ASSIST TO RESTROOM AND CHAIR THIS SHIFT. PT TOELRATING 60G CARB DIET WITH GOOD APPITITE. BLOOD SUGAR CHECKS WITH MEALS REMAIN VERY ELEVATED. SLIDING SCALE INSULIN GIVEN. RECIENT HISTORY OF RENAL TRANPLANT, ANTI REJECTION MEDICATIONS GIVEN. PT DENIES PAIN AND NAUSEA THIS SHIFT. IV FLUIDS WITH POTASSIUM CONTINUE. SERIAL KIDENY FUNCTION LABS CONTINUE. PT VOIDING QUANTITY SUFFICIENT. PT USES CALL LIGHT AND MAKES NEEDS KNOWN.
--- NOTE | 2021-10-05 17:40 | NUR ---
PT CALL LIGHT ON. PT REQUESTS WARM BLANKETS. PT ABLE TO EAT 75% OF DINNER AND STATES "THAT WAS REALLY GOOD, I FEEL SO MUCH BETTER." WARM BLANKETS PROVIDED. PT DENIES ADDITIONAL REQUESTS OR COMPLAINTS. CALL LIGHT WITHIN REACH. BED RAILS UP. BED ALARM ON.
[2021-10-05] MEDS ORDERED: SODIUM BICARBO650 MG PO (17:51)
[2021-10-05] MEDS ORDERED: TYLENOL325 MG PO (17:51)
[2021-10-05] MEDS ORDERED: ZYRTEC10 MG PO (17:52)
--- NOTE | 2021-10-05 17:53 | NUR ---
MED REC COMPLETE
--- NOTE | 2021-10-05 18:12 | NUR ---
THIS RN TO ROOM TO CHECK ON PT. PT RESTING IN BED WITH EYES CLOSED. RESPIRATIONS EVEN AND UNLABORED. VITAL SIGNS STABLE. PT DENIES PAIN AND NAUSEA. NO ADDITIONAL REQUESTS OR COMPLAINTS. CALL LIGHT WITHIN REACH. BED ALARM ON.
--- NOTE | 2021-10-05 19:56 | NUR ---
bed alarm set off, pt sba to the bathroom, back to bed, no further needs at this time, bed alarm set, pt orianted to [facility] room and call light
--- NOTE | 2021-10-05 20:45 | NUR ---
AWOKE AND WAS DISORIENTED AND UNSTEADY ON FEET. NEEDED TO URINATE URGENTLY. GOWN AND SOCK CHANGED NEEDED. PT DRIBBLED URINE ON BR FLOOR HE COULD NOT HOLD IT.
--- NOTE | 2021-10-05 21:20 | NUR ---
in to get vs, i&os, warm blankets provided, no further needs at this time
--- NOTE | 2021-10-05 22:51 | NUR ---
in to assist pt up to the br, sba with iv pole, pt back to bed, alarm on for safety
--- NOTE | 2021-10-06 01:41 | NUR ---
IV POSITONAL. FLUSHED WITH GOOD BLOOD RETURN NOTED.
--- NOTE | 2021-10-06 04:27 | NUR ---
pT requests pain med for pain to RUE rating 9 out of 10. All needs met. Call light within reach.
--- NOTE | 2021-10-06 07:17 | NUR ---
REPORT RECEIVED FROM HARDIK FARRIS. PT RESTING IN BED WITH EYES CLOSED, RESPIRATIONS EVEN AND UNLABORED. PT ALLOWED TO REST. CALL LIGHT WITHIN REACH. BED RAILS UP.
--- NOTE | 2021-10-06 08:58 | NUR ---
MORNING ASSESSMENT AND MEDICAITON DUE. PT AWAKENS TO MOVEMENT IN THE ROOM. PT REPOERTS HIS RIGHT ARM "FEELS MUCH BETTER." NOW WITH "SORENESS" AT 2/10, PT DENIES NEED FOR ADDITIONAL PAIN MEDICATION. PT ALERT AND ORIENTED TO ALL. PT REPORTS NORMAL STRENGTH. STAND BY ASSIST UP TO CHAIR FOR BREAKFAST. IV PUMP ALARMING, FLUIDS CONPLETE. IV FLUSHED AND SALINE LOCKED AT THIS TIME. NO S/S OF PHLEBITIS NOTED, ALCOHOL CAP APPLIED. PUPILS AND EYE MOVEMENT REMAIN UNCHANGED. PT REPORTS BASELINE CHANGES IN VISION. LUNG SOUNDS CLEAR. HEART TONES REGULAR. BOWEL TONES REGULAR, ABDOMEN SOFT. PT REPORTS GOOD APPITITE. PT VOIDING LARGE AMOUNTS AT A TIME OF CLEAR YELLOW URINE. MONITORING KIDNEY LABS. MEDICATIONS GIVEN. PT REMAINS UP TO CHAIR, EATING BREAKFAST. CALL LIGHT WITHIN REACH. LINENS CHANGED. PT DENIES ADDITIONAL REQUESTS OR COMPLAINTS. VALGANCICLOVIR BOTTLE EMPTY. PHARMACIST CALLED AND STATES PTS DAUGHTER HAS BEEN CONTACTED TO BRING IN ADDITIONAL BOTTLE OF MEDICATION. DOSE NOT GIVEN AT THIS TIME, AWAITING ARRIVAL OF MEDICATION.
--- NOTE | 2021-10-06 09:53 | NUR ---
tHIS RN TO ROOM TO CHECK ON PT. PT UP IN ROOM, USING RESTROOM, PT INDEPENDANT AND STEADY ON FEET. PT HAS MEDIUM SOFT BROWN BOWEL MOVMENT AND VOIDS AND ADDTIONAL 250ML CLEAR YELLOW URINE. PT REPORTS 7/10 PAIN IN HIS RIGHT SHOULDER AND REQUESTS PAIN MEDICATION. SEE MAR FOR MEDICATION GIVEN. ICE PACK ALSO PROVIDED. PT DENIES ADDITIONAL REQUESTS OR COMPLAINTS. CALL LIGHT WITHIN REACH.
--- NOTE | 2021-10-06 09:58 | NUR ---
THIS RN TO ROOM WITH DR VANESSA PONCE. PT UPDATED ON PLAN OF CARE AND PLAN FOR DISCHARGE. PT VERBALIZES UNDERSTANDING OF PLAN OF CARE AND STATES HIS QUESTIONS HAVE BEEN ANSWERED. NO ADDITIONAL NEEDS. CALL LIGHT WITHIN REACH.
[2021-10-06] MEDS ORDERED: LANTUS SOL100 UNIT/1 SUB-Q (10:06)
[2021-10-06] MEDS ORDERED: PEN NEEDLE1 EA13 MISC (10:07)
[2021-10-06] MEDS ORDERED: BLOOD GLUCOSE1 EAC1 MISC (10:07)
[2021-10-06] MEDS ORDERED: BLOOD GLUCOSE1 EAC8 MISC (10:08)
[2021-10-06] MEDS ORDERED: LANCETS1 EACH MISC (10:08)
--- NOTE | 2021-10-06 10:43 | NUR ---
PT READY FOR DISCHARGE. PT DRESSED WITH STAND BY ASSIST. VITAL SIGNS STABLE. IV DC'D PER PROTOCOL. GAUZE AND COBAN APPLIED, TIP INTACT. DISCHARGE INSTRUCTIONS REVIEWED WITH PT AND PTS SISTER. PT AND SISTER VERBALIZE UNDERSTANDING OF MEDICATIONS, FOLLOW UP, AND GLUCOMITER USE AND INSTRUCTIONS TO RECORD BLOOD SUGARS AND BRING THEM TO FOLLOW UP. PT ABLE TO REPEAT BACK S/S OF HYPOGLYCEMIA AND WHAT TO DO IF THESE SYMPTOMS OCCURE. PT STATES HIS QUESTIONS HAVE ALL BEEN ANSWERD. PT AWAITING INSTRUCTIONS FROM PHARAMCIST PRIOR TO DISCHARGE. NO ADDITIONAL NEEDS. CALL LIGHT WITHIN REACH.
--- NOTE | 2021-10-06 11:00 | NUR ---
Spoke with Tariq, his is planning on dc. Family in room. He states he will speak with pcp to determine if he needs a nebulizer. States he has not had issues with his lungs in several years.He then tells me he can't wait to leave so he can go smoke. Pt is joking and laughing so hard as I leave the room.
--- NOTE | 2021-10-06 11:10 | NUR ---
PHARMACIST FINISHED VISITING WITH PT. PT VERBALZIES UNDERSTANDING OF MEDICATIONS AND STATES HIS QUESTIONS HAVE BEEN ANSWERED. PT TRANSFERS SELF TO WHEELCHAIR AND IS WHEELED FROM MED/SURG. NO ADDITIONAL NEEDS AT THIS TIME.
--- NOTE | 2021-10-06 12:07 | NUR ---
CONNECTED WITH PT FOLLOWING DC. SPOUSE BY HIS SIDE, GAVE ENCOURAGEMENT HE WAS BEING WHEELED OUT BY WC.
== END 2021-10-06 11:05 | disposition home or self-care (01) | DRG 698 ==
LOC: ED 12:09 → CCU 16:23 → MS 10-05 16:36
PROVIDERS: ADMIT Internal Medicine; ATTEND Internal Medicine
DX: T86.19 Other complication of kidney transplant (principal); E11.00 Type 2 diabetes mellitus with hyperosmolarity without nonketotic hyperglycemic-hyperosmolar coma (NKHHC); N18.6 End stage renal disease; I12.0 Hypertensive chronic kidney disease with stage 5 chronic kidney disease or end stage renal disease; J45.998 Other asthma; E03.9 Hypothyroidism, unspecified; Z96.1 Presence of intraocular lens; Z20.822 Contact with and (suspected) exposure to COVID-19; E11.22 Type 2 diabetes mellitus with diabetic chronic kidney disease; I25.10 Atherosclerotic heart disease of native coronary artery without angina pectoris; M10.9 Gout, unspecified; F19.10 Other psychoactive substance abuse, uncomplicated; Z87.891 Personal history of nicotine dependence; Z98.890 Other specified postprocedural states; Z95.1 Presence of aortocoronary bypass graft; Z86.718 Personal history of other venous thrombosis and embolism; Z99.2 Dependence on renal dialysis; Z98.41 Cataract extraction status, right eye; Z88.0 Allergy status to penicillin; Z88.1 Allergy status to other antibiotic agents; Z91.040 Latex allergy status; Z91.048 Other nonmedicinal substance allergy status; Z91.09 Other allergy status, other than to drugs and biological substances; Z79.899 Other long term (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; Z79.890 Hormone replacement therapy
CPT/HCPCS: 36415; 51702; 51798; 80048; 80053; 81001; 82570; 83036; 84100; 84300; 84550; 85025; 87088; 94640; 94760; 99284-25; A9270; C9803; J1815; J3480; J7030; J7120; J7121; J7512; U0003

== ENCOUNTER 2022-02-15 16:26 | Emergency (ER) | payer MEDICARE, OTHER ==
[~2022-02-15] VITALS: Ht 170.2 cm; Wt 72.9 kg
[~2022-02-15 16:26] MED LIST changes: +BLOOD GLUCOSE1 EAC1 MISC; +BLOOD GLUCOSE1 EAC8 MISC; +K-PHOS NEUTRAL250 MG PO; +LANCETS1 EACH MISC; +LANTUS SOL100 UNIT/1 SUB-Q; +PEN NEEDLE1 EA13 MISC; +TYLENOL325 MG PO; +ZYRTEC10 MG PO
--- OUTSIDE RECORDS SUMMARY | 2022-02-15 16:30 | XMS ---
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 Care History Medical/Surgical 05/30/2021 [facility] [place] - PATIENT IS NIKO ELIGIBLE, \T\middot;\T\nbsp; PLEASE REFER PATIENT TO [facility] FOR NON EMERGENT MEDICAL NEEDS. \T\middot;\T\nbsp; [facility] CAN SEE PATIENTS SAME DAY FOR APTS IF PATIENT CALLS FIRST THING IN THE MORNING. 02/13/2018 [facility] - PATIENT IS FOLLOWING VERY CLOSELY WITH [facility] WEIGH MACHINE OPERATOR HARDIK WATSON. - PLEASE CALL SHIRLEY AT [phone] IF PATIENT IS SEEN IN THE ED. [...] COUNT (12 MO.) 1 Rohan Morales 1 [facility] 7 [facility]. TOTAL 9 NOTE: Visits indicate total known visits. ED/UCC VISIT TRACKING (12 MO.) 02/15/2022 16:27 [facility] [place] TYPE: Emergency COMPLAINT: - FLU SYMPTOMS 01/10/2022 01:39 [facility] [place] TYPE: Emergency COMPLAINT: - RIGHT EYE PAIN DIAGNOSES: - Allergy status to other antibiotic agents - Ocular pain, right eye - Dependence on renal dialysis - Atherosclerotic heart disease of [place] coronary artery without angina pectoris - Type 2 diabetes mellitus with diabetic chronic kidney disease - terminal press operator (current) use of anticoagulants - Presence of coronary angioplasty implant and graft - Hypertensive chronic kidney disease with stage 5 chronic kidney disease or end stage renal disease - terminal press operator (current) use of insulin - Allergy status to penicillin - Unspecified asthma, uncomplicated - Other allergy status, other than to drugs and biological substances - Unspecified conjunctivitis - End stage renal disease - Personal history of nicotine dependence - Allergy status to other drugs, medicaments and biological substances - Latex allergy status - Other retirement (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 10/04/2021 12:10 [facility] [place] TYPE: Emergency COMPLAINT: - ABNORMAL LABS 08/11/2021 16:48 [facility] [place] TYPE: Emergency COMPLAINT: - LOSS OF APPETITE DIAGNOSES: - Hypertensive chronic kidney disease with stage 5 chronic kidney disease or end stage renal disease - terminal press operator (current) use of anticoagulants - Left lower quadrant pain - Personal history of nicotine dependence - Gout, unspecified - Hypothyroidism, unspecified - Unspecified asthma, uncomplicated - Atherosclerotic heart disease of nightm[place] coronary artery without angina pectoris - Contact with and (suspected) exposure to COVID-19 - End stage renal disease - Type 2 diabetes mellitus with diabetic chronic kidney disease - terminal press operator (current) use of systemic steroids - Allergy status to penicillin - Gastro-esophageal reflux disease without esophagitis - Acute kidney failure, unspecified - Pyogenic arthritis, unspecified - Unspecified abdominal pain - Allergy status to other drugs, medicaments and biological substances - Kidney transplant status - Other retirement (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 08/07/2021 15:57 [facility] [place] TYPE: Emergency COMPLAINT: - HAND PAIN DIAGNOSES: - Pyogenic arthritis, unspecified - Allergy status to other drugs, medicaments and biological substances - End stage renal disease - Gastro-esophageal reflux disease without esophagitis - Hypertensive chronic kidney disease with stage 5 chronic kidney disease or end stage renal disease - Personal history of nicotine dependence - Other exterminator (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 - jail (current) use of anticoagulants - Gout, unspecified - Type 2 diabetes mellitus with diabetic chronic kidney disease - Pain in right arm - Pain in right upper arm - Unspecified asthma, uncomplicated - Atherosclerotic heart disease of nightm[place] coronary artery without angina pectoris - Allergy status to penicillin 07/23/2021 20:42 [facility] TYPE: Emergency DIAGNOSES: 29190. Thumb pain 98880. Pain in right finger(s) 07/22/2021 06:19 [facility] [place] TYPE: Emergency DIAGNOSES: - Abd Pain - Abdominal Pain - Unspecified abdominal pain 05/29/2021 13:44 [facility] TYPE: Emergency COMPLAINT: - BLEEDING DIAGNOSES: - Hypothyroidism, unspecified - terminal press operator (current) use of anticoagulants - Chronic kidney disease, unspecified - Personal history of nicotine dependence - Allergy status to other drugs, medicaments and biological substances - Hypertensive chronic kidney disease with stage 1 through stage 4 chronic kidney disease, or unspecified chronic kidney disease - Gout, unspecified - Hemorrhage due to vascular prosthetic devices, implants and grafts, initial encounter - Allergy status to other antibiotic agents - Atherosclerotic heart disease of [place] coronary artery without angina pectoris - Hemorrhage due to vascular prosthetic devices, implants and grafts, initial encounter - Other exterminator (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 - Unspecified asthma, uncomplicated - Gastro-esophageal reflux disease without esophagitis - Type 2 diabetes mellitus with diabetic chronic kidney disease - Allergy status to penicillin 05/15/2021 13:37 [facility] [place] TYPE: Emergency COMPLAINT: - BLEEDING FROM FISTULA DIAGNOSES: - Personal history of nicotine dependence - Hypertensive chronic kidney disease with stage 5 chronic kidney disease or end stage renal disease - Allergy status to penicillin - Atherosclerotic heart disease of [place] coronary artery without angina pectoris - Hemorrhage due to vascular prosthetic devices, implants and grafts, initial encounter - Other retirement (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 - End stage renal disease - terminal press operator (current) use of anticoagulants - Allergy status to other drugs, medicaments and biological substances - Gastro-esophageal reflux disease without esophagitis - Type 2 diabetes mellitus with diabetic chronic kidney disease - Unspecified asthma, uncomplicated - Hypothyroidism, unspecified - Gout, unspecified INPATIENT VISIT TRACKING (12 MO.) 10/04/2021 16:23 [facility] [place] TYPE: Medical Surgical COMPLAINT: - TIFFANIE, HHS DIAGNOSES: - Other exterminator (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 - Presence of intraocular lens - Other complication of kidney transplant - Other nonmedicinal substance allergy status - Personal history of nicotine dependence - Type 2 diabetes mellitus with diabetic chronic kidney disease - Allergy status to other antibiotic agents - Hormone replacement therapy - Other psychoactive substance abuse, uncomplicated - Gout, unspecified - Presence of aortocoronary bypass graft - End stage renal disease - End stage renal disease - Type 2 diabetes mellitus with diabetic chronic kidney disease - Hormone replacement therapy - Latex allergy status - Other psychoactive substance abuse, uncomplicated - Type 2 diabetes mellitus with hyperosmolarity without nonketotic hyperglycemic-hyperosmolar coma ([facility]) - Presence of aortocoronary bypass graft - Contact with and (suspected) exposure to COVID-19 - Other asthma - Atherosclerotic heart disease of [place] coronary artery without angina pectoris - Dependence on renal dialysis - Latex allergy status - Kidney transplant status - Atherosclerotic heart disease of [place] coronary artery without angina pectoris - Type 2 diabetes mellitus with hyperosmolarity without nonketotic hyperglycemic-hyperosmolar coma ([facility]) - Other retirement (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 - Allergy status to penicillin - Personal history of other venous thrombosis and embolism - Cataract extraction status, right eye - Contact with and (suspected) exposure to COVID-19 - Hypertensive chronic kidney disease with stage 5 chronic kidney disease or end stage renal disease - Personal history of nicotine dependence - Hypertensive chronic kidney disease with stage 5 chronic kidney disease or end stage renal disease - Cataract extraction status, right eye - Other allergy status, other than to drugs and biological substances - Other asthma - Other allergy status, other than to drugs and biological substances - Dependence on renal dialysis - Kidney transplant rejection - Allergy status to other antibiotic agents - Personal history of other venous thrombosis and embolism - Other specified postprocedural states - Gout, unspecified - Other complication of kidney transplant - Presence of intraocular lens - Hypothyroidism, unspecified - Other specified postprocedural states - Hypothyroidism, unspecified - Allergy status to penicillin - Other nonmedicinal substance allergy status 06/30/2021 20:40 [facility] TYPE: Nephrology DIAGNOSES: 95604. Type 2 diabetes mellitus with diabetic chronic kidney disease 95710. Hypertension secondary to other renal disorders 61649. Dependence on renal dialysis 30209. Other specified postprocedural states 27872. End stage renal disease 64743. terminal press operator (current) use of anticoagulants 17456. Chronic systolic (congestive) heart failure 29304. Chronic obstructive pulmonary disease, unspecified 00079. Compression of vein 48420. Methicillin susceptible Staphylococcus aureus infection as the cause of diseases classified elsewhere 24933. Other psychoactive substance abuse, uncomplicated 87728. Personal history of other medical treatment 68615. Peptic ulcer, site unspecified, unspecified as acute or chronic, without hemorrhage or perforation 94918. Bacteremia [email or web address]
== END 2022-02-15 20:14 | disposition home or self-care (01) ==
LOC: ED 16:26
DX: U07.1 COVID-19 (principal); I25.10 Atherosclerotic heart disease of native coronary artery without angina pectoris; I12.0 Hypertensive chronic kidney disease with stage 5 chronic kidney disease or end stage renal disease; N18.6 End stage renal disease; Z99.2 Dependence on renal dialysis; E11.22 Type 2 diabetes mellitus with diabetic chronic kidney disease; Z87.891 Personal history of nicotine dependence; Z88.0 Allergy status to penicillin; Z88.8 Allergy status to other drugs, medicaments and biological substances; Z91.040 Latex allergy status; Z79.4 Long term (current) use of insulin; Z79.01 Long term (current) use of anticoagulants; Z79.899 Other long term (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
CPT/HCPCS: 96374; 99283-25

== ENCOUNTER 2022-06-07 10:00 | Inpatient (IN) | payer MEDICARE, OTHER ==
[~2022-06-07] VITALS: Ht 170.2 cm; Wt 83.4 kg
--- OUTSIDE RECORDS SUMMARY | 2022-06-07 10:02 | XMS ---
PreManage Notification: CAROL STANTON Security Process Owner Events No recent Security Events currently on file CRITERIA MET - [facility] - Has Care Guidelines - Group Notification - PDMP CARE PROVIDERS ROSA LOFTON [facility] 01/24/2018-Current PHONE: [phone] [facility] Case Management 05/30/2021-[facility] PHONE: [phone] [facility] 05/22/2019-[facility] PHONE: [phone] Reinaldo has no Care Guidelines for this patient. Care History Medical/Surgical 05/30/2021 [facility] - PATIENT IS [place] ELIGIBLE, \T\middot;\T\nbsp; PLEASE REFER PATIENT TO [facility] FOR NON EMERGENT MEDICAL NEEDS. \T\middot;\T\nbsp; [facility] CAN SEE PATIENTS SAME DAY FOR APTS IF PATIENT CALLS FIRST THING IN THE MORNING. 02/13/2018 [facility] - PATIENT IS FOLLOWING VERY CLOSELY WITH [facility] MEDICAL GENETICIST HARDIK WATSON. - PLEASE CALL SHIRLEY AT [phone] IF PATIENT IS SEEN IN THE ED. [...] 1 [facility] 6 [facility]. TOTAL 8 NOTE: Visits indicate total known visits. ED/UCC VISIT TRACKING (12 MO.) 06/07/2022 10:00 [facility] [place] TYPE: Emergency COMPLAINT: - COLD SYMPTOMS 02/15/2022 16:27 [facility] [place] TYPE: Emergency COMPLAINT: - FLU SYMPTOMS DIAGNOSES: - Other specified symptoms and signs involving the circulatory and respiratory systems - Hypertensive chronic kidney disease with stage 5 chronic kidney disease or end stage renal disease - Allergy status to penicillin - Allergy status to other drugs, medicaments and biological substances - COVID-19 - End stage renal disease - Atherosclerotic heart disease of [place] coronary artery without angina pectoris - Latex allergy status - Personal history of nicotine dependence - Dependence on renal dialysis - Type 2 diabetes mellitus with diabetic chronic kidney disease - marine oil terminal superintendent (current) use of anticoagulants - Other superintendent marine oil terminal (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 - marine oil terminal superintendent (current) use of insulin 01/10/2022 01:39 [facility] [place] TYPE: Emergency COMPLAINT: - RIGHT EYE PAIN DIAGNOSES: - marine oil terminal superintendent (current) use of insulin - Allergy status to penicillin - Unspecified asthma, uncomplicated - Other allergy status, other than to drugs and biological substances - Unspecified conjunctivitis - End stage renal disease - Personal history of nicotine dependence - Allergy status to other drugs, medicaments and biological substances - Other superintendent marine oil terminal (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 - Latex allergy status - Allergy status to other antibiotic agents - Ocular pain, right eye - Dependence on renal dialysis - Atherosclerotic heart disease of [place] coronary artery without angina pectoris - Type 2 diabetes mellitus with diabetic chronic kidney disease - FPC (current) use of anticoagulants - Hypertensive chronic kidney disease with stage 5 chronic kidney disease or end stage renal disease - Presence of coronary angioplasty implant and graft 10/04/2021 12:10 [facility] [place] TYPE: Emergency COMPLAINT: - ABNORMAL LABS 08/11/2021 16:48 [facility] [place] TYPE: Emergency COMPLAINT: - LOSS OF APPETITE DIAGNOSES: - End stage renal disease - Type 2 diabetes mellitus with diabetic chronic kidney disease - marine oil terminal superintendent (current) use of systemic steroids - Allergy status to penicillin - Gastro-esophageal reflux disease without esophagitis - Acute kidney failure, unspecified - Unspecified abdominal pain - Pyogenic arthritis, unspecified - Allergy status to other drugs, medicaments and biological substances - Other superintendent marine oil terminal (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 - Kidney transplant status - Hypertensive chronic kidney disease with stage 5 chronic kidney disease or end stage renal disease - FPC (current) use of anticoagulants - Left lower quadrant pain - Personal history of nicotine dependence - Hypothyroidism, unspecified - Gout, unspecified - Unspecified asthma, uncomplicated - Contact with and (suspected) exposure to COVID-19 - Atherosclerotic heart disease of [place] coronary artery without angina pectoris 08/07/2021 15:[address] [facility] [place] TYPE: Emergency COMPLAINT: - HAND PAIN DIAGNOSES: - marine oil terminal superintendent (current) use of anticoagulants - Gout, unspecified - Type 2 diabetes mellitus with diabetic chronic kidney disease - Pain in right arm - Pain in right upper arm - Unspecified asthma, uncomplicated - Atherosclerotic heart disease of [place] coronary artery without angina pectoris - Allergy status to penicillin - Pyogenic arthritis, unspecified - Allergy status to other drugs, medicaments and biological substances - End stage renal disease - Gastro-esophageal reflux disease without esophagitis - Hypertensive chronic kidney disease with stage 5 chronic kidney disease or end stage renal disease - Personal history of nicotine dependence - Other superintendent marine oil terminal (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 07/23/2021 20:42 [facility] TYPE: Emergency DIAGNOSES: 99471. Thumb pain 39935. Pain in right finger(s) 07/22/2021 06:19 [facility] [place] TYPE: Emergency DIAGNOSES: - Abdominal Pain - Unspecified abdominal pain - Abd Pain INPATIENT VISIT TRACKING (12 MO.) 10/04/2021 16:23 [facility] [place] TYPE: Medical Surgical COMPLAINT: - TIFFANIE, HHS DIAGNOSES: - Kidney transplant status - Atherosclerotic heart disease of [place] coronary artery without angina pectoris - Latex allergy status - Allergy status to penicillin - Type 2 diabetes mellitus with hyperosmolarity without nonketotic hyperglycemic-hyperosmolar coma ([facility]) - Other correction (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 - Cataract extraction status, right eye - Contact with and (suspected) exposure to COVID-19 - Personal history of other venous thrombosis and embolism - Personal history of nicotine dependence - Hypertensive chronic kidney disease with stage 5 chronic kidney disease or end stage renal disease - Hypertensive chronic kidney disease with stage 5 chronic kidney disease or end stage renal disease - Other allergy status, other than to drugs and biological substances - Other asthma - Cataract extraction status, right eye - Dependence on renal dialysis - Kidney transplant rejection - Other allergy status, other than to drugs and biological substances - Other specified postprocedural states - Gout, unspecified - Allergy status to other antibiotic agents - Personal history of other venous thrombosis and embolism - Presence of intraocular lens - Hypothyroidism, unspecified - Other complication of kidney transplant - Allergy status to penicillin - Other nonmedicinal substance allergy status - Other specified postprocedural states - Hypothyroidism, unspecified - Presence of intraocular lens - Other complication of kidney transplant - Other superintendent marine oil terminal (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 - Personal history of nicotine dependence - Type 2 diabetes mellitus with diabetic chronic kidney disease - Other nonmedicinal substance allergy status - Hormone replacement therapy - Other psychoactive substance abuse, uncomplicated - Allergy status to other antibiotic agents - Presence of aortocoronary bypass graft - End stage renal disease - Gout, unspecified - Hormone replacement therapy - Latex allergy status - End stage renal disease - Type 2 diabetes mellitus with diabetic chronic kidney disease - Type 2 diabetes mellitus with hyperosmolarity without nonketotic hyperglycemic-hyperosmolar coma ([facility]) - Presence of aortocoronary bypass graft - Other psychoactive substance abuse, uncomplicated - Atherosclerotic heart disease of [place] coronary artery without angina pectoris - Dependence on renal dialysis - Contact with and (suspected) exposure to COVID-19 - Other asthma 06/30/2021 20:40 [facility] TYPE: Nephrology DIAGNOSES: 96412. Chronic systolic (congestive) heart failure 05561. Chronic obstructive pulmonary disease, unspecified 15976. Compression of vein 07688. Methicillin susceptible Staphylococcus aureus infection as the cause of diseases classified elsewhere 03486. Other psychoactive substance abuse, uncomplicated 65278. Personal history of other medical treatment 40763. Peptic ulcer, site unspecified, unspecified as acute or chronic, without hemorrhage or perforation 11644. Bacteremia 35612. Type 2 diabetes mellitus with diabetic chronic kidney disease 62794. Hypertension secondary to other renal disorders 55705. Dependence on renal dialysis 15008. Other specified postprocedural states 47152. End stage renal disease 56869. FPC (current) use of anticoagulants [email or web address]
--- NOTE | 2022-06-07 21:00 | NUR ---
PATIENT TO FLOOR FROM ER, BED SIDE REPORT FROM MARIBELL CAVANAUGH RN. PATIENT THEN STOOD AND TRANSFERED SELF OVER TO BED. PROVIDED SNACKS, CBG 91. FULL BODY ASSESMENT DONE. NO OTHER NEEDS AT THIS TIME.
--- NOTE | 2022-06-07 22:48 | NUR ---
SCHEDULED PO POTAIUM PILLS AND PO ELEIQUIS GIVEN PER REQUEST OF PRIMARY RN [place]. NO ADDITIOANL NEEDS VERBALIZED, CALL LIGHT IN REACH.
--- NOTE | 2022-06-07 23:00 | NUR ---
PATIENT RESTING BACK IN BED, NO COMPLAINTS OF PAIN. AWAITING IV FLUIDS TO BE MIXED BY UNIT RECEPTIONIST, DELAYED STARTING. PATIENT DRINKING WATER WELL. NO OTHER NEEDS AT THIS TIME.
--- NOTE | 2022-06-08 01:00 | NUR ---
PATIENT PHONE SOUNDED NOTIFYING BLOOD SUGAR LOW, PATIENT AWOKE AND CALLED FOR NURSE. PROVIDED ORANGE JUICE AND PROTEIN. CHECKED WITH HOSPITAL GLUCOSE MONITOR, CBG 83 THEN INCREASED TO 103. PATIENT RESTING AND STATES " I FEEL MUCH BETTER". PATIENT HAD ALSO GOTTEN UP TO BATHROOM WITHOUT CALLING AND THEN SAT IN SHOWER CHAIR VOIDING ON FLOOR. BED ALARM ON NOW, AND REMINDED PATIENT TO CALL BEFORE GETTING OUT OF BED. URINAL AT BEDSIDE.
--- NOTE | 2022-06-08 06:48 | NUR ---
PATIENT UP IN RECLINER. APPEARS CALM AND COMFORTABLE. NO OTHER NEEDS AT THIS TIME.
--- NOTE | 2022-06-08 07:35 | NUR ---
BEDSIDE HANDOFF REPORT RECEIVED FROM POSTBED STITCHER RN. PT RESTING IN CHAIR.
--- NOTE | 2022-06-08 07:45 | NUR ---
BATHROOM ALARMING. PT HAD AMBULATED TO BATHROOM BY SELF, ASSISTED BACK TO BED, BED ALARM IN PLACE. PT DENIES NEEDS AT THIS TIME.
--- NOTE | 2022-06-08 08:37 | NUR ---
PT REFUSED TO GET INTO CHAIR THIS AM. FAMILY IN ROOM. CALL LIGHT WITHIN REACH.
--- NOTE | 2022-06-08 08:39 | NUR ---
PT BLOOD GLUCOSE 104, SS INSULIN HELD.
[2022-06-08] MEDS ORDERED: PAXLOVID 300-11 EACH PO (09:42)
[2022-06-08] MEDS ORDERED: LEVOTHYROXINE100 MCG PO (09:43)
[2022-06-08] MEDS ORDERED: PREDNISONE5 MG PO (09:43)
[2022-06-08] MEDS ORDERED: BASAGLAR K100 UNIT/1 SUB-Q (09:45)
--- NOTE | 2022-06-08 10:04 | NUR ---
PT SITTING IN BED. PT ON ROOM AIR, LUNG SOUNDS COARSE WITH EXPIRATORY WHEEZE, FREQUENT COUGH. PT DENIES NAUSEA, BOWEL TONES ACTIVE, PT WITH LOOSE BM TODAY. IV FLUIDS INFUSING NA BICARBONATE AT 125ML/HR. CMS INTACT, WIHOUT EDEMA. PT WITH HOME ANITREJECTION MEDICATIONS, VERIFIED BY PHARMACIST, MEDICATIONS ADMINISTERED PER EMAR. PT DENIES OTHER NEEDS AT THIS TIME.
--- NOTE | 2022-06-08 10:27 | NUR ---
PATIENT IN BED AFTER MEAL. VITALS AND I/O'S COMPLETED. PT HAS NO OTHER NEEDS AT THIS TIME, CALL LIGHT WITHIN REACH.
--- NOTE | 2022-06-08 10:52 | NUR ---
MAXX WATCHING TV. PATIENT STATES HIS DISCHARGE PLAN IS TO GO HOME WHERE HE LIVES WITH HIS SON. PATIENT DOSE NOT NEED A WALKER AT THIS TIME OR OTHER DME. PATIENT CAN PROVIDE HIS FOOD AND PERSONAL CARE.
--- NOTE | 2022-06-08 12:51 | NUR ---
PT SITTING ON EDGE OF BED, ASSISTED TO BATHROOM. MEDICATIONS ADMINISTERED PER EMAR. PT DENIES NEEDS AT THIS TIME.
--- NOTE | 2022-06-08 14:08 | NUR ---
PATIENT IN BED AFTER MEAL. VITALS AND I/O'S COMPLETED. PT HAS NO OTHER NEEDS AT THIS TIME. CALL LIGHT WITHIN REACH.
--- NOTE | 2022-06-08 15:42 | NUR ---
MED REC COMPLETE
--- NOTE | 2022-06-08 16:07 | NUR ---
PT BEING ASSISTED BACK TO BED WITH FINANCE TEACHER FROM BATHROOM. PT ON ROOM AIR, LUNG SOUNDS COARSE WITH EXPIRATORY WHEEZE. PT WITHOUT EDEMA. PT DENIES NEEDS AT THIS TIME.
--- NOTE | 2022-06-08 16:49 | NUR ---
PER VERBAL ORDER FROM DR. MENDEZ IV FLUIDS RATE INCREASED TO 125ML/HR. PT DENIES NEEDS AT THIS TIME.
--- NOTE | 2022-06-08 17:43 | NUR ---
PATIENT IN BED AFTER MEAL. VITALS AND I/O'S COMPLETED. PATIENT HAS NO OTHER NEEDS AT THIS TIME. BED ALARM SET. CALL LIGHT WITHIN REACH.
--- NOTE | 2022-06-08 19:25 | NUR ---
Received report from offgoing shift, hourly rounding initiated
--- NOTE | 2022-06-08 20:01 | NUR ---
PT CALLS TO USE BR, PROVIDED. STOOL SAMPLE COLLECTED AND SENT TO LAB. PT BACK TO BED, SBA. BED ALARM ON. RT IN ROOM FOR TREATMENT. CALL LIGHT IN REACH.
--- NOTE | 2022-06-08 21:45 | NUR ---
IN TO GET VS, I&Os DONE
--- NOTE | 2022-06-08 23:25 | NUR ---
IN PT ROOM FOR ROUNDING, HELP PT GET BLANKETS SORTED OUT IN BED FOR BETTER COMFORT.
--- NOTE | 2022-06-09 00:50 | NUR ---
in pt room for rounding.
--- NOTE | 2022-06-09 02:33 | NUR ---
In pt room for rounding. Pt resting on back, no complaint of pain, breathing even and unlabored. call light in reach
--- NOTE | 2022-06-09 03:45 | NUR ---
IN TO ASSIST PT UP TO THE TOIELT, BACK TO BED
--- NOTE | 2022-06-09 07:25 | NUR ---
BEDSIDE HANDOFF REPORT RECEIVED FROM TECHNICAL HEALTHCARE CONSULTANT RN. PT SITTING IN CHAIR, INSPECTOR AND UNLOADER IN ROOM.
--- NOTE | 2022-06-09 08:55 | NUR ---
PT SITTING IN LAURIE, EATING BREAKFATS. PT ALERT AND ORIENTED. PT ON ROOM AIR, LUNG SOUNDS COARSE WITH EXPIRATORY WHEEZE, DENIES SOB. IV SALINE LOCKED. PT DENEIS NAUSEA, BOWEL TONES ACTIVE, PT CONTINUES TO HAVE LOOSE STOOLS. CMS INTACT, WITHOUT EDEMA. MEDICATIONS GIVEN PER EMAR. PT STATES HE IS FEELING MUCH BETTER TODAY. PT DENIES NEEDS AT THIS TIME.
--- NOTE | 2022-06-09 09:19 | NUR ---
PATIENT BACK IN BED AFTER MEAL. VITALS AND I/O'S COMPLETED. PT HAS NO OTHER NEEDS AT THIS TIME. CALL LIGHT WITHIN REACH.
--- NOTE | 2022-06-09 10:40 | NUR ---
IV FLUIDS STARTED PER ORDER, IV FLUSHED AND PATENT. PT DENIES NEEDS AT THIS TIME.
--- NOTE | 2022-06-09 13:44 | NUR ---
PATIENT IN CHAIR AFTER MEAL. VITALS AND I/O'S COMPLETED. PT HAS NO OTHER NEEDS AT THIS TIME. CALL LIGHT WITHIN REACH.
--- NOTE | 2022-06-09 16:45 | NUR ---
PT RESTING IN BED. EVENING ASSESSMENT COMPLETED, NO ACUTE CHANGES. PT DENIES NEEDS AT THIS TIME.
--- NOTE | 2022-06-09 19:25 | NUR ---
bedside report from rafal rn, pt eyes closed, resp even in bed. iv fusing at 125, call light in reach.
--- NOTE | 2022-06-09 21:06 | NUR ---
PT UP TO BR AND BACK TO BED, SBA. IV FLUIDS INFUSING PER ORDER. NO OTHER NEEDS. CALL LIGHT IN REACH, BED ALARM ON.
--- NOTE | 2022-06-09 22:52 | NUR ---
pt sleeping with eyes closed, resp rate even call light in reach.
--- NOTE | 2022-06-09 23:39 | NUR ---
answered pt call light - assisted him to walk to bathroom to void and have sm liq. bm. back to bed, call light in reach.
--- NOTE | 2022-06-10 02:25 | NUR ---
pt up in ch, amb to br bm noted - back to bed call light in reach.
--- NOTE | 2022-06-10 05:25 | NUR ---
pt water refilled, amb to br to void, sl iv - confirmed with charge master coordinator. pt denies needs. call light in reach.
--- NOTE | 2022-06-10 07:14 | NUR ---
HANDOFF REPORT RECEIVED FROM DRYWALL TAPER RN. PT SLEEPING, LEFT UNDISTURBED.
--- NOTE | 2022-06-10 08:45 | NUR ---
Patient in bed this am. Pt stated he had, "been up since midnight last night, and did not want to get up right now". Pt has no other needs at this time. Call light within reach.
--- NOTE | 2022-06-10 09:11 | NUR ---
PATIENT IN BED AFTER THE MEAL THIS AM. VITALS AND I/O'S COMPLETED. PT HAS NO OTHER NEEDS AT THIS TIME. CALL LIGHT WITHIN REACH.
--- NOTE | 2022-06-10 09:45 | NUR ---
PT SITTING INT HE CHAIR. PT STATES HE FEELS MUCH BETTER. PT ON ROOM AIR LUNG SOUNDS MOSTLY CLEAR, INSPIRATORY WHEEZE IN RIGHT LOWER LOBE, DENIES SOB. PT WITH GOOD APPETITE, TOLERATING DIET, BOWL TONES ACTIVE, PT STATES HE IS STILL HAVING LOOSE BMS. CMS INTACT, WITHOUT EDEMA. IV SLAINE LOCKED. PT GIVEN MORNING MEDICATIONS PER EMAR. PT DENIES OTHER NEEDS AT THIS TIME.
--- NOTE | 2022-06-10 15:29 | NUR ---
DISCHARGE INSTRUCTIONS REVIEWED WITH PATIENT. LEFT HAND IV REMOVED WITH CATHETER INTACT. PRESSURE DRESSING APPLIED.
== END 2022-06-10 16:00 | disposition home or self-care (01) | DRG 699 ==
LOC: ED 10:00 → MS 20:10
PROVIDERS: ADMIT Internal Medicine; ATTEND Internal Medicine
DX: T86.19 Other complication of kidney transplant (principal); E87.29 Other acidosis; N17.9 Acute kidney failure, unspecified; J10.2 Influenza due to other identified influenza virus with gastrointestinal manifestations; Z20.822 Contact with and (suspected) exposure to COVID-19; E87.6 Hypokalemia; E11.22 Type 2 diabetes mellitus with diabetic chronic kidney disease; N18.32 Chronic kidney disease, stage 3b; E03.9 Hypothyroidism, unspecified; I12.9 Hypertensive chronic kidney disease with stage 1 through stage 4 chronic kidney disease, or unspecified chronic kidney disease; I25.10 Atherosclerotic heart disease of native coronary artery without angina pectoris; J45.909 Unspecified asthma, uncomplicated; K21.9 Gastro-esophageal reflux disease without esophagitis; M10.9 Gout, unspecified; Z86.718 Personal history of other venous thrombosis and embolism; Z99.2 Dependence on renal dialysis; Z88.0 Allergy status to penicillin; Z88.8 Allergy status to other drugs, medicaments and biological substances; Z91.040 Latex allergy status; Z91.048 Other nonmedicinal substance allergy status; Z87.891 Personal history of nicotine dependence; Z98.890 Other specified postprocedural states; Z79.4 Long term (current) use of insulin; Z79.899 Other long term (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; Y83.0 Surgical operation with transplant of whole organ as the cause of abnormal reaction of the patient, or of later complication, without mention of misadventure at the time of the procedure
CPT/HCPCS: 36415; 80048; 80053; 83036; 85025; 87493; 87502; 94640; 94760; A9270; J7030; U0003

== ENCOUNTER 2023-02-17 06:21 | Emergency (ER) | payer MEDICARE, OTHER ==
[~2023-02-17] VITALS: Ht 170.2 cm; Wt 83.0 kg
--- OUTSIDE RECORDS SUMMARY | ~2023-02-17 | XMS | Continuity of Care Document ---
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 | (no reaction) | (no severity) | | | [facility] | | | + + + + + + | (no date) | Latex | [facility] | (no reaction) | (no severity) | | | | [facility] | | | + + + + + + | (no date) | Hives | [facility] | (no reaction) | (no severity) | | | | Emergency | | | | | | Department | | | + + + + + + | (no date) | Urticaria | [facility] | (no reaction) | (no severity) | | | | [facility] | | | + + + + + + | (no date) | AZITHROMYCIN | [facility] | (no reaction) | (no severity) | | | | Emergency | | | | | | Department | | | + + + + + + | (no date) | AZITHROMYCIN | [facility] | (no reaction) | (no severity) | | | | Emergency | | | | | | Department | | | + + + + + + | (no date) | LATEX | [facility] | (no reaction) | (no severity) | | | | Emergency | | | | | | Department | | | + + + + + + | (no date) | Latex | [facility] | (no reaction) | (no severity) | | | | [facility] | | | + + + + + + | (no date) | latex | [facility] | (no reaction) | (no severity) | | | | [facility] | | | + + + + + + | (no date) | LISINOPRIL | [facility] | (no reaction) | (no severity) | | | | Emergency | | | | | | Department | | | + + + + + + | (no date) | LISINOPRIL | [facility] | (no reaction) | (no severity) | | | | Emergency | | | | | | Department | | | + + + + + + | (no date) | LISINOPRIL | [facility] | (no reaction) | (no severity) | | | | Emergency | | | | | | Department | | | + + + + + + | (no date) | AZITHROMYCIN | [facility] | (no reaction) | (no severity) | | | | Emergency | | | | | | Department | | | + + + + + + | (no date) | Azithromycin | [facility] | (no reaction) | (no severity) | | | | [facility] | | | + + + + + + | (no date) | azithromycin | [facility] | (no reaction) | (no severity) | | | | [facility] | | | + + + + + + | (no date) | LISINOPRIL | [facility] | (no reaction) | (no severity) | | | | Emergency | | | | | | Department | | | + + + + + + | (no date) | AZITHROMYCIN | [facility] | (no reaction) | (no severity) | | | | Emergency | | | | | | Department | | | + + + + + + | (no date) | LISINOPRIL | [facility] | (no reaction) | (no severity) | | | | Emergency | | | | | | Department | | | + + + + + + | (no date) | AZITHROMYCIN | [facility] | (no reaction) | (no severity) | | | | Emergency | | | | | | Department | | | + + + + + + | (no date) | Mild | [facility] | (no reaction) | (no severity) | | | | [facility] | | | + + + + + + | (no date) | Rash | [facility] | (no reaction) | (no severity) | | | | [facility] | | | + + + + + + | (no date) | Rash | [facility] | (no reaction) | (no severity) | | | | Emergency | | | | | | Department | | | + + + + + + | (no date) | LISINOPRIL | [facility] | (no reaction) | (no severity) | | | | Emergency | | | | | | Department | | | + + + + + + | (no date) | Lisinopril | [facility] | (no reaction) | (no severity) | | | | [facility] | | | + + + + + + | (no date) | lisinopril | [facility] | (no reaction) | (no severity) | | | | [facility] | | | + + + + + + | (no date) | Latex | [facility] | (no reaction) | (no severity) | | | | [facility] | | | + + + + + + | (no date) | Penicillin g | [facility] | (no reaction) | (no severity) | | | | [facility] | | | + + + + + + | (no date) | PENICILLINS | [facility] | (no reaction) | (no severity) | | | | Emergency | | | | | | Department | | | + + + + + + | (no date) | Azithromycin | [facility] | (no reaction) | (no severity) | | | | [facility] | | | + + + + + + | (no date) | Famciclovir | [facility] | (no reaction) | (no severity) | | | | [facility] | | | + + + + + + | (no date) | Anaphylaxis | [facility] | (no reaction) | (no severity) | | | | [facility] | | | + + + + + + | (no date) | AZITHROMYCIN | [facility] | (no reaction) | (no severity) | | | | Emergency | | | | | | Department | | | + + + + + + | (no date) | AZITHROMYCIN | [facility] | (no reaction) | (no severity) | | | | Emergency | | | | | | Department | | | + + + + + + | (no date) | AZITHROMYCIN | [facility] | (no reaction) | (no severity) | | | | Emergency | | | | | | Department | | | + + + + + + | (no date) | Famciclovir | [facility] | (no reaction) | (no severity) | | | | [facility] | | | + + + + + + | (no date) | famciclovir | [facility] | (no reaction) | (no severity) | | | | [facility] | | | + + + + + + | (no date) | AZITHROMYCIN | [facility] | (no reaction) | (no severity) | | | | Emergency | | | | | | Department | | | + + + + + + | (no date) | Penicillin g | [facility] | (no reaction) | (no severity) | | | | [facility] | | | + + + + + + | (no date) | penicillin G | [facility] | (no reaction) | (no severity) | | | | [facility] | | | + + + + + + | (no date) | LISINOPRIL | [facility] | (no reaction) | (no severity) | | | | Emergency | | | | | | Department | | | + + + + + + | (no date) | Lisinopril | [facility] | (no reaction) | (no severity) | | | | [facility] | | | + + + + + + | (no date) | lisinopril | [facility] | (no reaction) | (no severity) | + + + + + + | (no date) | adhesive tape | [facility] | (no reaction) | (no severity) | + + + + + + | (no date) | azithromycin | [facility] | (no reaction) | (no severity) | + + + + + + | (no date) | famciclovir | [facility] | (no reaction) | (no severity) | + + + + + + | (no date) | penicillin G | [facility] | (no reaction) | (no severity) | + + + + + + | (no date) | latex | [facility] | (no reaction) | (no severity) | + + + + + + | (no date) | AZITHROMYCIN | [facility] | (no reaction) | (no severity) | | | | Emergency | | | | | | Department | | | + + + + + + | (no date) | Azithromycin | [facility] | (no reaction) | (no severity) | | | | [facility] | | | + + + + + + | (no date) | Latex | [facility] | (no reaction) | (no severity) | | | | [facility] | | | + + + + + + | (no date) | Penicillin g | [facility] | (no reaction) | (no severity) | | | | [facility] | | | + + + + + + | (no date) | Famciclovir | [facility] | (no reaction) | (no severity) | | | | [facility] | | | + + + + + + Encounters No information. Functional Status No information. Immunizations + + + + | date | description | facility | + + + + | 2022-01-10 00:00 | Td (Adult) Preservative | [facility] | | | Free | | + + + + | 2022-02-15 00:00 | Td (Adult) Preservative | [facility] | | | Free | | + + + + | 2022-06-10 00:00 | Td (Adult) Preservative | [facility] | | | Free | | + + + + | 2018-07-20 00:00 | Tdap | [facility] | + + + + | 2018-07-20 00:00 | Tdap | [facility] | + + + + Medications + + + + | date | description | facility | + + + + | 2022-01-10 00:00 | CETIRIZINE HCL | [facility] | + + + + | 2022-02-15 00:00 | CETIRIZINE HCL | [facility] | + + + + | 2018-02-23 00:00 | CIPROFLOXACIN 0.3% | [facility] | + + + + | 2018-02-23 00:00 | CIPROFLOXACIN 0.3% | [facility] | + + + + | 2015-04-28 00:00 | ONDANSETRON HCL | [facility] | + + + + | 2015-04-28 00:00 | ONDANSETRON HCL | [facility] | + + + + | 2022-01-10 00:00 | TRIAMCINOLONE ACETONIDE | [facility] | + + + + | 2022-02-15 00:00 | TRIAMCINOLONE ACETONIDE | [facility] | + + + + | 2022-06-10 00:00 | TRIAMCINOLONE ACETONIDE | [facility] | + + + + | 2022-01-10 00:00 | IPRATROPIUM/ALBUTEROL | [facility] | | | SULFATE | | + + + + | 2022-02-15 00:00 | IPRATROPIUM/ALBUTEROL | [facility] | | | SULFATE | | + + + + | 2022-06-10 00:00 | IPRATROPIUM/ALBUTEROL | [facility] | | | SULFATE | | + + + + | 2022-01-10 00:00 | BUDESONIDE/FORMOTEROL | [facility] | | | FUMARATE | | + + + + | 2022-02-15 00:00 | BUDESONIDE/FORMOTEROL | [facility] | | | FUMARATE | | + + + + | 2022-06-10 00:00 | BUDESONIDE/FORMOTEROL | [facility] | | | FUMARATE | | + + + + | 2022-01-10 00:00 | Sod Phos Rice/Sod Phos | [facility] | | | Dibas | | + + + + | 2022-02-15 00:00 | Sod Phos Rice/Sod Phos | [facility] | | | Dibas | | + + + + | 2022-06-10 00:00 | Sod Phos Rice/Sod Phos | [facility] | | | Dibas | | + + + + | 2022-01-10 00:00 | APIXABAN | [facility] | + + + + | 2022-02-15 00:00 | APIXABAN | [facility] | + + + + | 2022-06-10 00:00 | APIXABAN | [facility] | + + + + | 2015-03-10 00:00 | IPRATROPIUM/ALBUTEROL | [facility] | | | SULFATE | | + + + + | 2015-03-10 00:00 | IPRATROPIUM/ALBUTEROL | [facility] | | | SULFATE | | + + + + | 2022-01-10 00:00 | PREDNISOLONE ACETATE | [facility] | + + + + | 2022-02-15 00:00 | PREDNISOLONE ACETATE | [facility] | + + + + | 2022-06-10 00:00 | PREDNISOLONE ACETATE | [facility] | + + + + | 2014-09-14 00:00 | DOXYCYCLINE HYCLATE | [facility] | + + + + | 2014-09-14 00:00 | DOXYCYCLINE HYCLATE | [facility] | + + + + | 2022-01-10 00:00 | DOXYCYCLINE HYCLATE | [facility] | + + + + | 2022-02-15 00:00 | DOXYCYCLINE HYCLATE | [facility] | + + + + | 2022-06-10 00:00 | DOXYCYCLINE HYCLATE | [facility] | + + + + | 2021-11-27 00:00 | 1 ml hydromorphone | [facility] | | | hydrochloride 1 mg/ml | Department | | | cartridge | | + + + + | 2022-06-10 00:00 | Insulin | [facility] | | | Hum. IsiahrecRenatoanlog | | + + + + | 2021-11-27 00:00 | 1 ml hydromorphone | [facility] | | | hydrochloride 1 mg/ml | Department | | | prefilled syringe | | | | [dilaudid] | | + + + + | 2022-01-10 00:00 | ALLOPURINOL | [facility] | + + + + | 2022-02-15 00:00 | ALLOPURINOL | [facility] | + + + + | 2022-06-10 00:00 | ALLOPURINOL | [facility] | + + + + | 2022-01-10 00:00 | ALLOPURINOL | [facility] | + + + + | 2022-02-15 00:00 | ALLOPURINOL | [facility] | + + + + | 2022-06-10 00:00 | ALLOPURINOL | [facility] | + + + + | 2022-01-10 00:00 | | [facility] | | | SULFAMETHOXAZOLE/TRIMETHOPR | | | | IM | | + + + + | 2022-02-15 00:00 | | [facility] | | | SULFAMETHOXAZOLE/TRIMETHOPR | | | | IM | | + + + + | 2022-01-10 00:00 | TACROLIMUS | [facility] | + + + + | 2022-02-15 00:00 | TACROLIMUS | [facility] | + + + + | 2022-06-10 00:00 | TACROLIMUS | [facility] | + + + + | 2022-01-10 00:00 | SODIUM BICARBONATE | [facility] | + + + + | 2022-02-15 00:00 | SODIUM BICARBONATE | [facility] | + + + + | 2022-06-10 00:00 | SODIUM BICARBONATE | [facility] | + + + + | 2022-01-10 00:00 | MYCOPHENOLATE MOFETIL | [facility] | + + + + | 2022-02-15 00:00 | MYCOPHENOLATE MOFETIL | [facility] | + + + + | 2022-06-10 00:00 | MYCOPHENOLATE MOFETIL | [facility] | + + + + | 2022-01-10 00:00 | LEVOFLOXACIN | [facility] | + + + + | 2022-02-15 00:00 | LEVOFLOXACIN | [facility] | + + + + | 2022-06-10 00:00 | LEVOFLOXACIN | [facility] | + + + + | 2022-01-10 00:00 | MONTELUKAST SODIUM | [facility] | + + + + | 2022-02-15 00:00 | MONTELUKAST SODIUM | [facility] | + + + + | 2022-06-10 00:00 | MONTELUKAST SODIUM | [facility] | + + + + | 2022-01-10 00:00 | OMEPRAZOLE | [facility] | + + + + | 2022-02-15 00:00 | OMEPRAZOLE | [facility] | + + + + | 2022-06-10 00:00 | OMEPRAZOLE | [facility] | + + + + | 2022-01-10 00:00 | CITALOPRAM HYDROBROMIDE | [facility] | + + + + | 2022-02-15 00:00 | CITALOPRAM HYDROBROMIDE | [facility] | + + + + | 2022-06-10 00:00 | CITALOPRAM HYDROBROMIDE | [facility] | + + + + | 2022-01-10 00:00 | FUROSEMIDE | [facility] | + + + + | 2022-02-15 00:00 | FUROSEMIDE | [facility] | + + + + | 2022-06-10 00:00 | FUROSEMIDE | [facility] | + + + + | 2018-08-12 00:00 | BENZONATATE | [facility] | + + + + | 2018-08-12 00:00 | BENZONATATE | [facility] | + + + + | 2022-01-10 00:00 | CALCIUM CARBONATE | [facility] | + + + + | 2022-02-15 00:00 | CALCIUM CARBONATE | [facility] | + + + + | 2022-06-10 00:00 | CALCIUM CARBONATE | [facility] | + + + + | 2014-05-14 00:00 | AZITHROMYCIN | [facility] | + + + + | 2014-05-14 00:00 | AZITHROMYCIN | [facility] | + + + + | 2014-09-14 00:00 | AZITHROMYCIN | [facility] | + + + + | 2014-09-14 00:00 | AZITHROMYCIN | [facility] | + + + + | 2022-01-10 00:00 | AMLODIPINE BESYLATE | [facility] | + + + + | 2022-02-15 00:00 | AMLODIPINE BESYLATE | [facility] | + + + + | 2022-06-10 00:00 | AMLODIPINE BESYLATE | [facility] | + + + + | 2022-01-10 00:00 | CITALOPRAM HYDROBROMIDE | [facility] | + + + + | 2022-02-15 00:00 | CITALOPRAM HYDROBROMIDE | [facility] | + + + + | 2022-06-10 00:00 | CITALOPRAM HYDROBROMIDE | [facility] | + + + + | 2022-01-10 00:00 | VALGANCICLOVIR HCL | [facility] | + + + + | 2022-02-15 00:00 | VALGANCICLOVIR HCL | [facility] | + + + + | 2022-01-10 00:00 | AMLODIPINE BESYLATE | [facility] | + + + + | 2022-02-15 00:00 | AMLODIPINE BESYLATE | [facility] | + + + + | 2022-06-10 00:00 | AMLODIPINE BESYLATE | [facility] | + + + + | 2022-01-10 00:00 | ASPIRIN | [facility] | + + + + | 2022-02-15 00:00 | ASPIRIN | [facility] | + + + + | 2022-06-10 00:00 | ASPIRIN | [facility] | + + + + | 2015-11-19 00:00 | CEPHALEXIN | [facility] | + + + + | 2015-11-19 00:00 | CEPHALEXIN | [facility] | + + + + | 2022-01-10 00:00 | FUROSEMIDE | [facility] | + + + + | 2022-02-15 00:00 | FUROSEMIDE | [facility] | + + + + | 2022-06-10 00:00 | FUROSEMIDE | [facility] | + + + + | 2016-07-08 00:00 | GENTAMICIN SULFATE | [facility] | + + + + | 2016-07-08 00:00 | GENTAMICIN SULFATE | [facility] | + + + + | 2016-09-17 00:00 | ONDANSETRON | [facility] | + + + + | 2016-09-17 00:00 | ONDANSETRON | [facility] | + + + + | 2014-03-08 00:00 | predniSONE | [facility] | + + + + | 2014-03-08 00:00 | predniSONE | [facility] | + + + + | 2014-05-14 00:00 | predniSONE | [facility] | + + + + | 2014-05-14 00:00 | predniSONE | [facility] | + + + + | 2015-10-05 00:00 | predniSONE | [facility] | + + + + | 2015-10-05 00:00 | predniSONE | [facility] | + + + + | 2016-02-01 00:00 | predniSONE | [facility] | + + + + | 2016-02-01 00:00 | predniSONE | [facility] | + + + + | 2016-04-16 00:00 | predniSONE | [facility] | + + + + | 2016-04-16 00:00 | predniSONE | [facility] | + + + + | 2018-08-12 00:00 | predniSONE | [facility] | + + + + | 2018-08-12 00:00 | predniSONE | [facility] | + + + + | 2022-01-10 00:00 | PREDNISONE | [facility] | + + + + | 2022-02-15 00:00 | PREDNISONE | [facility] | + + + + | 2022-01-10 00:00 | ACETAMINOPHEN | [facility] | + + + + | 2022-02-15 00:00 | ACETAMINOPHEN | [facility] | + + + + | 2022-06-10 00:00 | ACETAMINOPHEN | [facility] | + + + + | 2022-01-10 00:00 | CALCIUM ACETATE | [facility] | + + + + | 2022-02-15 00:00 | CALCIUM ACETATE | [facility] | + + + + | 2022-06-10 00:00 | CALCIUM ACETATE | [facility] | + + + + | 2022-01-10 00:00 | OMEPRAZOLE MAGNESIUM | [facility] | + + + + | 2022-02-15 00:00 | OMEPRAZOLE MAGNESIUM | [facility] | + + + + | 2022-06-10 00:00 | OMEPRAZOLE MAGNESIUM | [facility] | + + + + | 2022-01-10 00:00 | CIPROFLOXACIN HCL/DEXAMETH | [facility] | | | | | + + + + | 2022-02-15 00:00 | CIPROFLOXACIN HCL/DEXAMETH | [facility] | | | | | + + + + | 2022-06-10 00:00 | CIPROFLOXACIN HCL/DEXAMETH | [facility] | | | | | + + + + | 2021-11-27 00:00 | Drug or medicament | [facility] | | | (substance) | Department | + + + + | 2022-01-10 00:00 | LANTHANUM CARBONATE | [facility] | + + + + | 2022-02-15 00:00 | LANTHANUM CARBONATE | [facility] | + + + + | 2022-06-10 00:00 | LANTHANUM CARBONATE | [facility] | + + + + | 2022-01-10 00:00 | ALBUTEROL SULFATE | [facility] | + + + + | 2022-02-15 00:00 | ALBUTEROL SULFATE | [facility] | + + + + | 2022-06-10 00:00 | ALBUTEROL SULFATE | [facility] | + + + + | 2022-01-10 00:00 | CARVEDILOL | [facility] | + + + + | 2022-02-15 00:00 | CARVEDILOL | [facility] | + + + + | 2022-06-10 00:00 | CARVEDILOL | [facility] | + + + + | 2022-01-10 00:00 | CARVEDILOL | [facility] | + + + + | 2022-02-15 00:00 | CARVEDILOL | [facility] | + + + + | 2022-06-10 00:00 | CARVEDILOL | [facility] | + + + + | 2022-01-10 00:00 | SEVELAMER CARBONATE | [facility] | + + + + | 2022-02-15 00:00 | SEVELAMER CARBONATE | [facility] | + + + + | 2022-06-10 00:00 | SEVELAMER CARBONATE | [facility] | + + + + | 2013-10-15 00:00 | AZITHROMYCIN | [facility] | + + + + | 2013-10-15 00:00 | AZITHROMYCIN | [facility] | + + + + | 2018-01-23 00:00 | METHYLPREDNISOLONE | [facility] | + + + + | 2018-01-23 00:00 | METHYLPREDNISOLONE | [facility] | + + + + | 2022-01-10 00:00 | CHOLECALCIFEROL (VITAMIN | [facility] | | | D3) | | + + + + | 2022-02-15 00:00 | CHOLECALCIFEROL (VITAMIN | [facility] | | | D3) | | + + + + | 2022-06-10 00:00 | CHOLECALCIFEROL (VITAMIN | [facility] | | | D3) | | + + + + | 2016-08-11 00:00 | methylPREDNISolone | [facility] | + + + + | 2016-08-11 00:00 | methylPREDNISolone | [facility] | + + + + | 2021-10-06 00:00 | INSULIN | [facility] | | | GLARJOSE,HUM.REC.ANLOG | | + + + + | 2021-10-06 00:00 | INSULIN | [facility] | | | GLARGINE,HUM.REC.ANLOG | | + + + + | 2022-01-10 00:00 | DICLOFENAC SODIUM | [facility] | + + + + | 2022-02-15 00:00 | DICLOFENAC SODIUM | [facility] | + + + + | 2022-06-10 00:00 | DICLOFENAC SODIUM | [facility] | + + + + | 2022-01-10 00:00 | WARFARIN SODIUM | [facility] | + + + + | 2022-02-15 00:00 | WARFARIN SODIUM | [facility] | + + + + | 2022-06-10 00:00 | WARFARIN SODIUM | [facility] | + + + + | 2022-01-10 00:00 | WARFARIN SODIUM | [facility] | + + + + | 2022-02-15 00:00 | WARFARIN SODIUM | [facility] | + + + + | 2022-06-10 00:00 | WARFARIN SODIUM | [facility] | + + + + | 2022-01-10 00:00 | WARFARIN SODIUM | [facility] | + + + + | 2022-02-15 00:00 | WARFARIN SODIUM | [facility] | + + + + | 2022-06-10 00:00 | WARFARIN SODIUM | [facility] | + + + + | 2022-01-10 00:00 | WARFARIN SODIUM | [facility] | + + + + | 2022-02-15 00:00 | WARFARIN SODIUM | [facility] | + + + + | 2022-06-10 00:00 | WARFARIN SODIUM | [facility] | + + + + | 2022-01-10 00:00 | HYDROCODONE/APAP | [facility] | | | (10-325MG) | | + + + + | 2022-02-15 00:00 | HYDROCODONE/APAP | [facility] | | | (10-325MG) | | + + + + | 2022-06-10 00:00 | HYDROCODONE/APAP | [facility] | | | (10-325MG) | | + + + + | 2022-01-10 00:00 | HYDROCODONE | [facility] | | | BIT/ACETAMINOPHEN | | + + + + | 2022-02-15 00:00 | HYDROCODONE | [facility] | | | BIT/ACETAMINOPHEN | | + + + + | 2022-06-10 00:00 | HYDROCODONE | [facility] | | | BIT/ACETAMINOPHEN | | + + + + | 2015-11-19 00:00 | HYDROCODONE | [facility] | | | BIT/ACETAMINOPHEN | | + + + + | 2015-11-19 00:00 | HYDROCODONE | [facility] | | | BIT/ACETAMINOPHEN | | + + + + | 2016-01-18 00:00 | HYDROCODONE | [facility] | | | BIT/ACETAMINOPHEN | | + + + + | 2016-01-18 00:00 | HYDROCODONE | [facility] | | | BIT/ACETAMINOPHEN | | + + + + | 2018-02-23 00:00 | HYDROCODONE | [facility] | | | BIT/ACETAMINOPHEN | | + + + + | 2018-02-23 00:00 | HYDROCODONE | [facility] | | | BIT/ACETAMINOPHEN | | + + + + | 2021-08-07 00:00 | HYDROCODONE | [facility] | | | BIT/ACETAMINOPHEN | | + + + + | 2021-08-07 00:00 | HYDROCODONE | [facility] | | | BIT/ACETAMINOPHEN | | + + + + | 2022-01-10 00:00 | Cholecalciferol (Vitamin | [facility] | | | D3) | | + + + + | 2022-02-15 00:00 | Cholecalciferol (Vitamin | [facility] | | | D3) | | + + + + | 2022-06-10 00:00 | Cholecalciferol (Vitamin | [facility] | | | D3) | | + + + + | 2022-01-10 00:00 | ALBUTEROL SULFATE | [facility] | + + + + | 2022-02-15 00:00 | ALBUTEROL SULFATE | [facility] | + + + + | 2022-06-10 00:00 | ALBUTEROL SULFATE | [facility] | + + + + | 2022-01-10 00:00 | BRIMONIDINE TARTRATE | [facility] | + + + + | 2022-02-15 00:00 | BRIMONIDINE TARTRATE | [facility] | + + + + | 2022-06-10 00:00 | BRIMONIDINE TARTRATE | [facility] | + + + + | 2022-06-10 00:00 | LEVOTHYROXINE SODIUM | [facility] | + + + + | 2022-01-10 00:00 | LEVOTHYROXINE SODIUM | [facility] | + + + + | 2022-02-15 00:00 | LEVOTHYROXINE SODIUM | [facility] | + + + + | 2022-06-10 00:00 | LEVOTHYROXINE SODIUM | [facility] | + + + + | 2022-01-10 00:00 | LEVOTHYROXINE SODIUM | [facility] | + + + + | 2022-02-15 00:00 | LEVOTHYROXINE SODIUM | [facility] | + + + + | 2015-04-28 00:00 | DICYCLOMINE HCL | [facility] | + + + + | 2015-04-28 00:00 | DICYCLOMINE HCL | [facility] | + + + + | 2015-04-11 00:00 | GUAIFENESIN/CODEINE | [facility] | | | PHOSPHATE | | + + + + | 2015-04-11 00:00 | GUAIFENESIN/CODEINE | [facility] | | | PHOSPHATE | | + + + + Problems + + + + | date | description | facility | + + + + | 2014-03-08 00:00 | Asthma with acute | [facility] | | | exacerbation | | + + + + | 2014-03-08 00:00 | Asthma with acute | [facility] | | | exacerbation | | + + + + | 2014-03-15 00:00 | Sepsis | [facility] | + + + + | 2014-03-15 00:00 | Sepsis | [facility] | + + + + | 2014-03-15 00:00 | Diabetes mellitus | [facility] | + + + + | 2014-03-15 00:00 | Diabetes mellitus | [facility] | + + + + | 2014-03-15 00:00 | Coronary artery disease | [facility] | + + + + | 2014-03-15 00:00 | Coronary artery disease | [facility] | + + + + | 2014-03-15 00:00 | Pneumonia | [facility] | + + + + | 2014-03-15 00:00 | Pneumonia | [facility] | + + + + | 2014-03-15 00:00 | End-stage renal disease | [facility] | + + + + | 2014-03-15 00:00 | End-stage renal disease | [facility] | + + + + | 2014-05-14 00:00 | Bronchitis | [facility] | + + + + | 2014-05-14 00:00 | Bronchitis | [facility] | + + + + | 2014-05-14 00:00 | Renal failure | [facility] | + + + + | 2014-05-14 00:00 | Renal failure | [facility] | + + + + | 2014-05-14 00:00 | Dyspnea | [facility] | + + + + | 2014-05-14 00:00 | Dyspnea | [facility] | + + + + | 2014-08-25 00:00 | Pain of right forearm | [facility] | + + + + | 2014-08-25 00:00 | Pain of right forearm | [facility] | + + + + | 2014-09-14 00:00 | Acute pharyngitis | [facility] | + + + + | 2014-09-14 00:00 | Acute pharyngitis | [facility] | + + + + | 2014-11-23 00:00 | Patient left without being | [facility] | | | seen | | + + + + | 2014-11-23 00:00 | Patient left without being | [facility] | | | seen | | + + + + | 2014-12-07 00:00 | Reactive airway disease | [facility] | | | with acute exacerbation | | + + + + | 2014-12-07 00:00 | Reactive airway disease | [facility] | | | with acute exacerbation | | + + + + | 2015-02-20 00:00 | Compression fracture of | [facility] | | | cervical spine | | + + + + | 2015-02-20 00:00 | Compression fracture of | [facility] | | | cervical spine | | + + + + | 2015-04-11 00:00 | Asthma in adult | [facility] | + + + + | 2015-04-11 00:00 | Asthma in adult | [facility] | + + + + | 2015-04-28 00:00 | Chronic renal failure | [facility] | + + + + | 2015-04-28 00:00 | Chronic renal failure | [facility] | + + + + | 2015-04-28 00:00 | Abdominal pain | [facility] | + + + + | 2015-04-28 00:00 | Abdominal pain | [facility] | + + + + | 2015-07-19 00:00 | Acute chest wall pain | [facility] | + + + + | 2015-07-19 00:00 | Acute chest wall pain | [facility] | + + + + | 2015-10-05 00:00 | Acute asthma exacerbation | [facility] | + + + + | 2015-10-05 00:00 | Acute asthma exacerbation | [facility] | + + + + | 2015-11-19 00:00 | Acute otitis externa of | [facility] | | | left ear | | + + + + | 2015-11-19 00:00 | Acute otitis externa of | [facility] | | | left ear | | + + + + | 2016-01-18 00:00 | Contusion of right hand | [facility] | + + + + | 2016-01-18 00:00 | Contusion of right hand | [facility] | + + + + | 2016-02-01 00:00 | Exacerbation of asthma | [facility] | + + + + | 2016-02-01 00:00 | Exacerbation of asthma | [facility] | + + + + | 2016-04-28 00:00 | Respiratory failure | [facility] | | | requiring intubation | | + + + + | 2016-04-28 00:00 | Respiratory failure | [facility] | | | requiring intubation | | + + + + | 2016-07-08 00:00 | Acute bacterial | [facility] | | | conjunctivitis of both eyes | | | | | | + + + + | 2016-07-08 00:00 | Acute bacterial | [facility] | | | conjunctivitis of both eyes | | | | | | + + + + | 2016-07-08 00:00 | Viral labyrinthitis | [facility] | + + + + | 2016-07-08 00:00 | Viral labyrinthitis | [facility] | + + + + | 2016-08-09 00:00 | Swelling of right hand | [facility] | + + + + | 2016-08-09 00:00 | Swelling of right hand | [facility] | + + + + | 2016-08-11 00:00 | Contact dermatitis | [facility] | + + + + | 2016-08-11 00:00 | Contact dermatitis | [facility] | + + + + | 2016-08-18 00:00 | Chronic pruritic rash in | [facility] | | | adult | | + + + + | 2016-08-18 00:00 | Chronic pruritic rash in | [facility] | | | adult | | + + + + | 2016-09-07 00:00 | Acute gastroenteritis | [facility] | + + + + | 2016-09-07 00:00 | Acute gastroenteritis | [facility] | + + + + | 2016-09-17 00:00 | Constipation | [facility] | + + + + | 2016-09-17 00:00 | Constipation | [facility] | + + + + | 2016-10-01 00:00 | Chronic kidney disease | [facility] | + + + + | 2016-10-01 00:00 | Chronic kidney disease | [facility] | + + + + | 2016-10-01 00:00 | Chest pain | [facility] | + + + + | 2016-10-01 00:00 | Chest pain | [facility] | + + + + | 2016-10-01 00:00 | Elevated troponin I level | [facility] | + + + + | 2016-10-01 00:00 | Elevated troponin I level | [facility] | + + + + | 2016-10-07 00:00 | Hyperkalemia | [facility] | + + + + | 2016-10-07 00:00 | Hyperkalemia | [facility] | + + + + | 2016-10-07 00:00 | Chest pain | [facility] | + + + + | 2016-10-07 00:00 | Chest pain | [facility] | + + + + | 2016-12-01 00:00 | Abrasion of right cornea | [facility] | + + + + | 2016-12-01 00:00 | Abrasion of right cornea | [facility] | + + + + | 2017-02-11 00:00 | Rash | [facility] | + + + + | 2017-02-11 00:00 | Rash | [facility] | + + + + | 2017-02-12 00:00 | End-stage renal disease on | [facility] | | | hemodialysis | | + + + + | 2017-02-12 00:00 | End-stage renal disease on | [facility] | | | hemodialysis | | + + + + | 2017-02-20 00:00 | Contusion of right | [facility] | | | shoulder | | + + + + | 2017-02-20 00:00 | Contusion of right | [facility] | | | shoulder | | + + + + | 2017-02-21 00:00 | 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 | | + + + + | 2017-02-21 00:00 | 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 | | + + + + | 2017-04-26 00:00 | Dental abscess | [facility] | + + + + | 2017-04-26 00:00 | Dental abscess | [facility] | + + + + | 2017-08-30 00:00 | Ulcer of right cornea | [facility] | + + + + | 2017-08-30 00:00 | Ulcer of right cornea | [facility] | + + + + | 2017-12-31 00:00 | Acute bronchospasm | [facility] | + + + + | 2017-12-31 00:00 | Acute bronchospasm | [facility] | + + + + | 2018-01-23 00:00 | Pruritus due to | [facility] | | | inflammation | | + + + + | 2018-01-23 00:00 | Pruritus due to | [facility] | | | inflammation | | + + + + | 2018-01-23 00:00 | Headache | [facility] | + + + + | 2018-01-23 00:00 | Headache | [facility] | + + + + | 2018-02-11 00:00 | Acute strain of neck | [facility] | | | muscle | | + + + + | 2018-02-11 00:00 | Acute strain of neck | [facility] | | | muscle | | + + + + | 2018-02-23 00:00 | Conjunctivitis | [facility] | + + + + | 2018-02-23 00:00 | Conjunctivitis | [facility] | + + + + | 2018-03-24 00:00 | Diarrhea | [facility] | + + + + | 2018-03-24 00:00 | Diarrhea | [facility] | + + + + | 2018-03-26 00:00 | Nonspecific chest pain | [facility] | + + + + | 2018-03-26 00:00 | Nonspecific chest pain | [facility] | + + + + | 2018-07-20 00:00 | Skin tear | [facility] | + + + + | 2018-07-20 00:00 | Skin tear | [facility] | + + + + | 2018-11-03 00:00 | Asthma with acute | [facility] | | | exacerbation in adult | | + + + + | 2018-11-03 00:00 | Asthma with acute | [facility] | | | exacerbation in adult | | + + + + | 2020-01-31 18:31:01 | Type 2 diabetes mellitus | [facility] | | | with unspecified [facility] | | | complications | | + + + + | 2020-01-31 18:31:01 | End stage renal disease | [facility] | | | [facility] | + + + + | 2020-01-31 18:31:01 | Dizziness and giddiness | [facility] | | | | [facility] | + + + + | 2020-01-31 18:31:01 | Dependence on renal | [facility] | | | dialysis | [facility] | + + + + | 2020-04-09 00:00 | Contusion of upper | [facility] | | | extremity | | + + + + | 2020-04-09 00:00 | Contusion of upper | [facility] | | | extremity | | + + + + | 2021-05-15 00:00 | Complication of | [facility] | | | arteriovenous dialysis | | | | fistula | | + + + + | 2021-05-15 00:00 | Complication of | [facility] | | | arteriovenous dialysis | | | | fistula | | + + + + | 2021-06-30 21:40:56 | End stage renal disease | [facility] | | | | [facility] | + + + + | 2021-06-30 21:40:56 | Dependence on renal | [facility] | | | dialysis | [facility] | + + + + | 2021-08-07 00:00 | Pain of right upper | [facility] | | | extremity | | + + + + | 2021-08-07 00:00 | Pain of right upper | [facility] | | | extremity | | + + + + | 2021-08-11 00:00 | Acute kidney injury | [facility] | + + + + | 2021-08-11 00:00 | Acute kidney injury | [facility] | + + + + | 2021-08-11 00:00 | Left lower quadrant | [facility] | | | abdominal pain | | + + + + | 2021-08-11 00:00 | Left lower quadrant | [facility] | | | abdominal pain | | + + + + | 2021-08-11 00:00 | Vomiting | [facility] | + + + + | 2021-08-11 00:00 | Vomiting | [facility] | + + + + | 2021-10-04 00:00 | Diabetic ketoacidosis | [facility] | + + + + | 2021-10-04 00:00 | Diabetic ketoacidosis | [facility] | + + + + | 2022-01-10 00:00 | Conjunctivitis of right | [facility] | | | eye | | + + + + | 2022-01-10 00:00 | Conjunctivitis of right | [facility] | | | eye | | + + + + | 2022-02-15 00:00 | Infection due to severe | [facility] | | | acute respiratory syndrome | | | | coronavirus 2 (SARS-CoV-2) | | + + + + | 2022-06-07 00:00 | Influenza due to influenza | [facility] | | | virus, type A, human | | + + + + | 2022-06-07 00:00 | Acute renal failure | [facility] | + + + + | 2022-06-07 20:10 | HYPOTHYROIDISM, | [facility] | | | UNSPECIFIED | | + + + + | 2022-06-07 20:10 | TYPE 2 DIABETES MELLITUS W | [facility] | | | DIABETIC CHRONIC KIDNEY | | + + + + | 2022-06-07 20:10 | OTHER ACIDOSIS | [facility] | + + + + | 2022-06-07 20:10 | HYPOKALEMIA | [facility] | + + + + | 2022-06-07 20:10 | HYPERTENSIVE CHRONIC | [facility] | | | KIDNEY DISEASE W STG | | | | 1-4/UNSP | | + + + + | 2022-06-07 20:10 | 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 | | + + + + | 2022-06-07 20:10 | INFLUENZA DUE TO OTH IDENT | [facility] | | | INFLUENZA VIRUS W GI MA | | + + + + | 2022-06-07 20:10 | UNSPECIFIED ASTHMA, | [facility] | | | UNCOMPLICATED | | + + + + | 2022-06-07 20:10 | GASTRO-ESOPHAGEAL REFLUX | [facility] | | | DISEASE WITHOUT ESOPHAGIT | | + + + + | 2022-06-07 20:10 | GOUT, UNSPECIFIED | [facility] | + + + + | 2022-06-07 20:10 | ACUTE KIDNEY FAILURE, | [facility] | | | UNSPECIFIED | | + + + + | 2022-06-07 20:10 | 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 | | + + + + | 2022-06-07 20:10 | TXPLT OF WHOLE ORGAN CAUSE | [facility] | | | ABN REACT/COMPL, W/O WI | | + + + + | 2022-06-07 20:10 | FCI (CURRENT) USE OF | [facility] | | | INSULIN | | + + + + | 2022-06-07 20:10 | OTHER CLEANING CREW MEMBER (CURRENT) | [facility] | | | DRUG THERAPY | | + + + + | 2022-06-07 20:10 | PERSONAL HISTORY OF OTHER | [facility] | | | VENOUS THROMBOSIS AND EM | | + + + + | 2022-06-07 20:10 | PERSONAL HISTORY OF | [facility] | | | NICOTINE DEPENDENCE | | + + + + | 2022-06-07 20:10 | ALLERGY STATUS TO | [facility] | | | PENICILLIN | | + + + + | 2022-06-07 20:10 | ALLERGY STATUS TO OTH | [facility] | | | DRUG/MEDS/BIOL SUBST STATUS | | | | | | + + + + | 2022-06-07 20:10 | LATEX ALLERGY STATUS | [facility] | + + + + | 2022-06-07 20:10 | OTHER NONMEDICINAL | [facility] | | | SUBSTANCE ALLERGY STATUS | | + + + + | 2022-06-07 20:10 | OTHER SPECIFIED | [facility] | | | POSTPROCEDURAL STATES | | + + + + | 2022-06-07 20:10 | DEPENDENCE ON RENAL | [facility] | | | DIALYSIS | | + + + + | 2023-01-24 14:30 | KIDNEY TRANSPLANT STATUS | [facility] | + + + + Procedures + + + + | date | description | facility | + + + + | 2021-07-22 00:00 | _POCT URINE DIPSTICK | [facility] | | | INSTRUMENT | Department | + + + + | 2021-07-22 00:00 | COMPLETE BLOOD COUNT WITH | [facility] | | | AUTO DIFFERENTIAL | Department | + + + + | 2021-07-22 00:00 | _LACTATE WB POCT | [facility] | | | | Department | + + + + | 2021-07-22 00:00 | _UA W MICROSCOPIC C/S IF | [facility] | | | INDICATED - IP ONLY | Department | + + + + | 2021-07-22 00:00 | COMPREHENSIVE METABOLIC | [facility] | | | PANEL | Department | + + + + | 2021-07-22 00:00 | CT ABDOMEN/PELVIS WO FOR | [facility] | | | RENAL COLIC | Department | + + + + | 2021-07-22 00:00 | CULTURE BLOOD | [facility] | | | | Department | + + + + | 2021-07-22 00:00 | US TRANSPLANT KIDNEY | [facility] | | | | Department | + + + + | 2021-07-22 00:00 | ED INFORMATION EXCHANGE | [facility] | | | | Department | + + + + | 2021-07-22 00:00 | CORONAVIRUS SARS-COV-2 FLU | [facility] | | | AB RSV RAPID BY PCR | Department | + + + + Results/Labs +--------+--------+ +---------+--------+---------+ | test | date | facility | value | unit | notes | +--------+--------+ +---------+--------+---------+ + + | Result panel 1 | + + + + + + + + + | Specimen | (no date) | [facility] (missing[facility] | (missing) | (missing) | [facility] | | | (procedure) | | Emergency | | | | | | | Department | | | | + + + + + + + + + | Result panel 2 | + + + + + + + + + | Specimen | (no date) | [facility] | (missing) | (missing) | (missing) | | collection | [facility] | | | | (procedure) | | Emergency | | | | | | | Department | | | | + + + + + + + + + | Result panel 3 | + + + + + + + + + | Specimen | (no date) | [facility] | (missing) | (missing) | (missing) | | collection | [facility] | | | | (procedure) | | Emergency | | | | | | | Department | | | | + + + + + + + + + | Result panel 4 | + + + + + + + + + | Specimen | (no date) | [facility] | (missing) | (missing) | (missing) | | collection | [facility] | | | | (procedure) | | Emergency | | | | | | | Department | | | | + + + + + + + + + | Result panel 5 | + + + + + + + + + | Specimen | (no date) | [facility] | (missing) | (missing) | (missing) | | collection | [facility] | | | | (procedure) | | Emergency | | | | | | | Department | | | | + + + + + + + + + | Result panel 6 | + + + + + + + + + | Specimen | (no date) | [facility] | (missing) | (missing) | (missing) | | collection | [facility] | | | | (procedure) | | Emergency | | | | | | | Department | | | | + + + + + + + + + | Result panel 7 | + + + + + + + + + | Specimen | (no date) | [facility] | (missing) | (missing) | (missing) | | collection | [facility] | | | | (procedure) | | Emergency | | | | | | | Department | | | | + + + + + + + + + | Result panel 8 | + + + + + + + + + | Specimen | (no date) | [facility] | (missing) | (missing) | (missing) | | collection | [facility] | | | | (procedure) | | Emergency | | | | | | | Department | | | | + + + + + + + + + | Result panel 9 | + + + + + + + + + | Specimen | (no date) | [facility] | (missing) | (missing) | (missing) | | collection | [facility] | | | | (procedure) | | Emergency | | | | | | | Department | | | | + + + + + + + + + | Result panel 10 | + + + + + + + + + | Specimen | (no date) | [facility] | (missing) | (missing) | (missing) | | collection | [facility] | | | | (procedure) | | Emergency | | | | | | | Department | | | | + + + + + + + + + | Result panel 11 | + + + + + + + + + | Specimen | (no date) | [facility] | (missing) | (missing) | (missing) | | collection | [facility] | | | | (procedure) | | Emergency | | | | | | | Department | | | | + + + + + + + + + | Result panel 12 | + + + + + + + + + | DECLAN PID | 2021-07-22 | [facility] ED | (missing) | (missing) | | | 14:20:29 | [facility] | Information | | | | | | Emergency | Exchange | | | | | | Department | | | | + + + + + + + + + | Result panel 13 | + + + + + +------+ + + | DECLAN Care | 2021-07-22 | [facility] | NO | (missing) | (missing) | | Guideline | 14:20:29 | [facility] | | | | | Emergency | | | | | | | Department | | | | + + + +------+ + + + + | Result panel 14 | + + + + + + + + + | | 2021-07-22 | [facility] | (missing) | (missing) | (missing) | | (unavailable | 14::29 | [facility] | | | | ) | | Emergency | | | | | | | Department | | | | + + + + + + + + + | Result panel 15 | + + + + + + + + + | | 2021-07-22 | [facility] | (missing) | (missing) | (missing) | | (unavailable | 14:20:29 | [facility] | | | ) | | Emergency | | | | | | | Department | | | | + + + + + + + + + | Result panel 16 | + + + + + + + + + | | 2021-07-22 | [facility] | (missing) | (missing) | (missing) | | (unavailable | 14:44:17 | [facility] | | | ) | | Emergency | | | | | | | Department | | | | + + + + + + + + + | Result panel 17 | + + + + + + + + + | Abdomen | 2021-07-22 | [facility] | (missing) | (missing) | (missing) | | | 14:44:17 | [facility] | | | | | | Emergency | | | | | | | Department | | | | + + + + + + + + + | Result panel 18 | + + + + + +--------+ + + | | 2021-07-22 | [facility] | 7.38 | (missing) | (missing) | | (unavailable | 14:56:56 | [facility] | | [facility] ) | | Emergency | | | | | | | Department | | | | + + + +--------+ + + + + | Result panel 19 | + + + + + +--------+ + + | | 2021-07-22 | [facility] | 3.01 | (missing) | (missing) | | (unavailable | 14:56:56 | [facility] | | | ) | | Emergency | | | | | | | Department | | | | + + + +--------+ + + + + | Result panel 20 | + + + + + +-------+ + + | | 2021-07-22 | [facility] | 9.4 | (missing) | (missing) | | (unavailable | 14:56:56 | [facility] | | [facility] ) | | Emergency | | | | | | | Department | | | | + + + +-------+ + + + + | Result panel 21 | + + + + + +--------+-----+ + | | 2021-07-22 | [facility] | 28.4 | % | (missing) | | (unavailable | 14:56:56 | [facility] ) | | Emergency | | | | | | | Department | | | | + + + +--------+-----+ + + + | Result panel 22 | + + + + + +--------+------+ + | | 2021-07-22 | [facility] | 94.4 | fL | (missing) | | (unavailable | 14:56:56 | [facility] ) | | Emergency | | | | | | | Department | | | | + + + +--------+------+ + + + | Result panel 23 | + + + + + +--------+------+ + | | 2021-07-22 | [facility] | 31.2 | pg | (missing) | | (unavailable | 14:56:56 | [facility] | [facility] ) | | Emergency | | | | | | | Department | | | | + + + +--------+------+ + + + | Result panel 24 | + + + + + +--------+ + + | | 2021-07-22 | [facility] | 33.1 | (missing) | (missing) | | (unavailable | 14:56:56 | [facility] | [facility] ) | | Emergency | | | | | | | Department | | | | + + + +--------+ + + + + | Result panel 25 | + + + + + +--------+-----+ + | | 2021-07-22 | [facility] | 16.0 | % | (missing) | | (unavailable | 14:56:56 | [facility] ) | | Emergency | | | | | | | Department | | | | + + + +--------+-----+ + + + | Result panel 26 | + + + + + +-------+ + + | | 2021-07-22 | [facility] | 187 | (missing) | (missing) | | (unavailable | 14:56:56 | [facility] | | | ) | | Emergency | | | | | | | Department | | | | + + + +-------+ + + + + | Result panel 27 | + + + + + +-------+------+ + | | 2021-07-22 | [facility] | 9.1 | fL | (missing) | | (unavailable | 14:56:56 | [facility] | [facility] ) | | Emergency | | | | | | | Department | | | | + + + +-------+------+ + + + | Result panel 28 | + + + + + +--------+-----+ + | | 2021-07-22 | [facility] | 80.9 | % | (missing) | | (unavailable | 14:56:56 | [facility] | | | ) | | Emergency | | | | | | | Department | | | | + + + +--------+-----+ + + + | Result panel 29 | + + + + + +--------+-----+ + | | 2021-07-22 | [facility] | 11.1 | % | (missing) | | (unavailable | 14:56:56 | [facility] | [facility] ) | | Emergency | | | | | | | Department | | | | + + + +--------+-----+ + + + | Result panel 30 | + + + + + +-------+-----+ + | | 2021-07-22 | [facility] | 6.6 | % | (missing) | | (unavailable | 14:56:56 [facility] ) | | Emergency | | | | | | | Department | | | | + + + +-------+-----+ + + + | Result panel 31 | + + + + + +-------+-----+ + | | 2021-07-22 | [facility] | 0.7 | % | (missing) | | (unavailable | 14:56:56 [facility] | | Emergency | | | | | | | Department | | | | + + + +-------+-----+ + + + | Result panel 32 | + + + + + +-------+-----+ + | | 2021-07-22 | [facility] | 0.3 | % | (missing) | | (unavailable | 14:56:56 | [facility] | | Emergency | | | | | | | Department | | | | + + + +-------+-----+ + + + | Result panel 33 | + + + + + +-------+-----+ + | | 2021-07-22 | [facility] | 0.4 | % | (missing) | | (unavailable | 14:56:56 | [facility] ) | | Emergency | | | | | | | Department | | | | + + + +-------+-----+ + + + | Result panel 34 | + + + + + +-------+ + + | | 2021-07-22 | [facility] | 0.0 | (missing) | (missing) | | (unavailable | 14:56:56 | [facility] | | | | | ) | | Emergency | | | | | | | Department | | | | + + + +-------+ + + + + | Result panel 35 | + + + + + +--------+ + + | | 2021-07-22 | [facility] | 5.97 | (missing) | (missing) | | (unavailable | 14:56:56 | [facility] | Emergency | | | | | | | Department | | | | + + + +--------+ + + + + | Result panel 36 | + + + + + +--------+ + + | | 2021-07-22 | [facility] | 0.82 | (missing) | (missing) | | (unavailable | 14:56:56 | [facility] | Emergency | | | | | | | Department | | | | + + + +--------+ + + + + | Result panel 37 | + + + + + +--------+ + + | | 2021-07-22 | [facility] | 0.49 | (missing) | (missing) | | (unavailable | 14:56:56 | [facility] | Emergency | | | | | | | Department | | | | + + + +--------+ + + + + | Result panel 38 | + + + + + +--------+ + + | | 2021-07-22 | [facility] | 0.05 | (missing) | (missing) | | (unavailable | 14:56:56 | [facility] | [facility] | | | | | | | Department | | | | + + + +--------+ + + + + | Result panel 39 | + + + + + +--------+ + + | | 2021-07-22 | [facility] | 0.02 | (missing) | (missing) | | (unavailable | 14:56:56 | [facility] | [facility] | | | | | | | Department | | | | + + + +--------+ + + + + | Result panel 40 | + + + + + +--------+ + + | | 2021-07-22 | [facility] | 0.03 | (missing) | (missing) | | (unavailable | 14:56:56 | [facility] | | | | | | | Department | | | | + + + +--------+ + + + + | Result panel 41 | + + + + + +--------+ + + | | 2021-07-22 | [facility] | 0.00 | (missing) | (missing) | | (unavailable | 14:56:56 | [facility] | Emergency | | | | | | | Department | | | | + + + +--------+ + + + + | Result panel 42 | + + + + + + + + + | | 2021-07-22 | [facility] | Abnormal | (missing) | (missing) | | (unavailable | 14:56:56 | [facility] | [facility] | | | | | | | Department | | | | + + + + + + + + + | Result panel 43 | + + + + + +-------+ + + | Lactate | 2021-07-22 | [facility] | 0.6 | mmol/L | (missing) | | POCT | 15:10:24 | [facility] | | | | | | | Department | | | | + + + +-------+ + + + + | Result panel 44 | + + + + + +-------+ + + | | 2021-07-22 | [facility] | 130 | mmol/L | (missing) | | (unavailable | 15:12:43 | [facility] | [facility] | | | | | | | Department | | | | + + + +-------+ + + + + | Result panel 45 | + + + + + +-------+ + + | | 2021-07-22 | [facility] | 5.0 | mmol/L | (missing) | | (unavailable | 15:12:43 | [facility] | [facility] | | | | | | | Department | | | | + + + +-------+ + + + + | Result panel 46 | + + + + + +-------+ + + | | 2021-07-22 | [facility] | 103 | mmol/L | (missing) | | (unavailable | 15:12:43 | [facility] | [facility] | | | | | | | Department | | | | + + + +-------+ + + + + | Result panel 47 | + + + + + +------+ + + | | 2021-07-22 | [facility] | 20 | mmol/L | (missing) | | (unavailable | 15:12:43 | [facility] | [facility] | | | | | | | Department | | | | + + + +------+ + + + + | Result panel 48 | + + + + + +-----+ + + | Anion Gap | 2021-07-22 | [facility] | 8 | mmol/L | (missing) | | | 15:12:43 | [facility] | [facility] | | | | | | | Department | | | | + + + +-----+ + + + + | Result panel 49 | + + + + + +------+---------+ + | | 2021-07-22 | [facility] | 35 | mg/dL | (missing) | | (unavailable | 15:12:43 | [facility] | Emergency | | | | | | | Department | | | | + + + +------+---------+ + + + | Result panel 50 | + + + + + +--------+---------+ + | | 2021-07-22 | [facility] | 2.16 | mg/dL | (missing) | | (unavailable | 15:12:43 | [facility] | [facility] | | | | | | | Department | | | | + + + +--------+---------+ + + + | Result panel 51 | + + + + + +-------+---------+ + | | 2021-07-22 | [facility] | 252 | mg/dL | (missing) | | (unavailable | 15:12:43 | [facility] | [facility] | | | | | | | Department | | | | + + + +-------+---------+ + + + | Result panel 52 | + + + + + +-------+---------+ + | | 2021-07-22 | [facility] | 9.0 | mg/dL | (missing) | | (unavailable | 15:12:43 | [facility] | [facility] | | | | | | | Department | | | | + + + +-------+---------+ + + + | Result panel 53 | + + + + + +-------+ + + | | 2021-07-22 | [facility] | 6.9 | (missing) | (missing) | | (unavailable | 15:12:43 | [facility] | [facility] | | | | | | | Department | | | | + + + +-------+ + + + + | Result panel 54 | + + + + + +-------+ + + | | 2021-07-22 | [facility] | 4.1 | (missing) | (missing) | | (unavailable | 15:12:43 | [facility] | [facility] | | | | | | | Department | | | | + + + +-------+ + + + + | Result panel 55 | + + + + + +-----+-------+ + | | 2021-07-22 | [facility] | 6 | U/L | (missing) | | (unavailable | 15:12:43 | [facility] | [facility] | | | | | | | Department | | | | + + + +-----+-------+ + + + | Result panel 56 | + + + + + +-----+-------+ + | | 2021-07-22 | [facility] | 8 | U/L | (missing) | | (unavailable | 15:12:43 | [facility] | [facility] | | | | | | | Department | | | | + + + +-----+-------+ + + + | Result panel 57 | + + + + + +------+-------+ + | | 2021-07-22 | [facility] | 67 | U/L | (missing) | | (unavailable | 15:12:43 | [facility] | Emergency | | | | | | | Department | | | | + + + +------+-------+ + + + | Result panel 58 | + + + + + +-------+---------+ + | | 2021-07-22 | [facility] | 0.6 | mg/dL | (missing) | | (unavailable | 15:12:43 | [facility] | [facility] | | | | | | | Department | | | | + + + +-------+---------+ + + + | Result panel 59 | + + + + + + + + + | | 2021-07-22 | [facility] | Abnormal | (missing) | (missing) | | (unavailable | 15:12:43 | [facility] | [facility] | | | | | | | Department | | | | + + + + + + + + + | Result panel 60 | + + + + + + + + + | | 2021-07-22 | [facility] | (missing) | (missing) | (missing) | | (unavailable | 16:10:56 | [facility] | [facility] | | | | | | | Department | | | | + + + + + + + + + | Result panel 61 | + + + + + + + + + | | 2021-07-22 | [facility] | (missing) | (missing) | (missing) | | (unavailable | 16:10:56 | [facility] | [facility] | | | | | | | Department | | | | + + + + + + + + + | Result panel 62 | + + + + + + + + + | | 2021-07-22 | [facility] | (missing) | (missing) | (missing) | | (unavailable | 17:04:51 | [facility] | Emergency | | | | | | | Department | | | | + + + + + + + + + | Result panel 63 | + + + + + + + + + | Abdomen | 2021-07-22 | [facility] | (missing) | (missing) | (missing) | | | 17:04:51 | [facility] | | [facility] | | | | | | | Department | | | | + + + + + + + + + | Result panel 64 | + + + + + + + + + | SARS-CoV-2 | 2021-07-22 | [facility] | Not | (missing) | (missing) | | PCR Interp | 17:28:23 | [facility] | Detected | | | | | | Emergency | | | | | | | Department | | | | + + + + + + + + + | Result panel 65 | + + + + + + + + + | Influ A PCR | 2021-07-22 | [facility] | Not | (missing) | (missing) | | | 17:28:23 | [facility] | Detected | | | | | | Emergency | | | | | | | Department | | | | + + + + + + + + + | Result panel 66 | + + + + + + + + + | Influ B by | 2021-07-22 | [facility] | Not | (missing) | (missing) | | PCR | 17:28:23 | [facility] | Detected | | | | | | Emergency | | | | | | | Department | | | | + + + + + + + + + | Result panel 67 | + + + + + + + + + | RSV by PCR | 2021-07-22 | [facility] | Not | (missing) | (missing) | | | 17:28:23 | [facility] | Detected | | | | | | Emergency | | | | | | | Department | | | | + + + + + + + + + | Result panel 68 | + + + + + + + + + | RVP PCR | 2021-07-22 | [facility] | [facility] | (missing) | (missing) | | specimen | 17:28:23 | [facility] | | [facility] | | | | | | | Department | | | | + + + + + + + + + | Result panel 69 | + + + + + +------+ + + | | 2021-07-22 | [facility] | 1+ | (missing) | (missing) | | (unavailable | 17:30:19 | [facility] | Emergency | | | | | | | Department | | | | + + + +------+ + + + + | Result panel 70 | + + + + + + + + + | | 2021-07-22 | [facility] | Negative | (missing) | (missing) | | (unavailable | 17:30:19 | [facility] ) | | Emergency | | | | | | | Department | | | | + + + + + + + + + | Result panel 71 | + + + + + + + + + | | 2021-07-22 | [facility] | Negative | (missing) | (missing) | | (unavailable | 17:30:19 | [facility] ) | | Emergency | | | | | | | Department | | | | + + + + + + + + + | Result panel 72 | + + + + + +-----+ + + | | 2021-07-22 | [facility] | 6 | (missing) | (missing) | | (unavailable | 17:30:19 | [facility] | | Emergency | | | | | | | Department | | | | + + + +-----+ + + + + | Result panel 73 | + + + + + +--------+ + + | | 2021-07-22 | [facility] | 1.02 | (missing) | (missing) | | (unavailable | 17:30:19 | [facility] | | Emergency | | | | | | | Department | | | | + + + +--------+ + + + + | Result panel 74 | + + + + + +------+ + + | | 2021-07-22 | [facility] | 3+ | (missing) | (missing) | | (unavailable | 17:30:19 | [facility] | | Emergency | | | | | | | Department | | | | + + + +------+ + + + + | Result panel 75 | + + + + + +------+ + + | | 2021-07-22 | [facility] | 3+ | (missing) | (missing) | | (unavailable | 17:30:19 | [facility] | ) | | Emergency | | | | | | | Department | | | | + + + +------+ + + + + | Result panel 76 | + + + + + + + + + | | 2021-07-22 | [facility] | Negative | (missing) | (missing) | | (unavailable | 17:30:19 | [facility] | | | ) | | Emergency | | | | | | | Department | | | | + + + + + + + + + | Result panel 77 | + + + + + + + + + | | 2021-07-22 | [facility] | Negative | (missing) | (missing) | | (unavailable | 17:30:19 | [facility] | | | ) | | Emergency | | | | | | | Department | | | | + + + + + + + + + | Result panel 78 | + + + + + + + + + | | 2021-07-22 | [facility] | Abnormal | (missing) | (missing) | | (unavailable | 17:30:19 | [facility] | | | | ) | | Emergency | | | | | | | Department | | | | + + + + + + + + + | Result panel 79 | + + + + + + + + + | | 2021-07-22 | [facility] | (missing) | (missing) | (missing) | | (unavailable | 17:37:53 | [facility] | ) | | Emergency | | | | | | | Department | | | | + + + + + + + + + | Result panel 80 | + + + + + + + + + | | 2021-07-22 | [facility] | (missing) | (missing) | (missing) | | (unavailable | 17:37:53 | [facility] | ) | | Emergency | | | | | | | Department | | | | + + + + + + + + + | Result panel 81 | + + + + + + + + + | UA Color | 2021-07-22 | [facility] | Yellow | (missing) | (missing) | | | 17:55:55 | [facility] | | | | Emergency | | | | | | | Department | | | | + + + + + + + + + | Result panel 82 | + + + + + + + + + | UA | 2021-07-22 | [facility] | Slight | (missing) | (missing) | | Turbidity | 17:55:55 | [facility] | Cloudy | | | | | | Emergency | | | | | | | Department | | | | + + + + + + + + + | Result panel 83 | + + + + + +------+ + + | UA Glucose | 2021-07-22 | [facility] | 3+ | (missing) | (missing) | | | 17:55:55 | [facility] | | | | | | Emergency | | | | | | | Department | | | | + + + +------+ + + + + | Result panel 84 | + + + + + + + + + | UA | 2021-07-22 | [facility] | Negative | (missing) | (missing) | | Bilirubin | 17:55:55 | [facility] | | | | | | Emergency | | | | | | | Department | | | | + + + + + + + + + | Result panel 85 | + + + + + + + + + | UA Ketones | 2021-07-22 | [facility] | Negative | (missing) | (missing) | | | 17:55:55 | [facility] | | | | | Emergency | | | | | | | Department | | | | + + + + + + + + + | Result panel 86 | + + + + + +--------+ + + | UA Specific | 2021-07-22 | [facility] | 1.02 | (missing) | (missing) | | [place] | 17:55:55 | [facility] | | | | | Emergency | | | | | | | Department | | | | + + + +--------+ + + + + | Result panel 87 | + + + + + +------+ + + | UA Blood | 2021-07-22 | [facility] | 3+ | (missing) | (missing) | | | 17:55:55 | [facility] | | | | | Emergency | | | | | | | Department | | | | + + + +------+ + + + + | Result panel 88 | + + +---------+ + +-----+ + + | UA pH | 2021-07-22 | [facility] | 6 | (missing) | (missing) | | | 17:55:55 | [facility] | | | | | Emergency | | | | | | | Department | | | | +---------+ + +-----+ + + + + | Result panel 89 | + + + + + +---------+ + + | UA Albumin | 2021-07-22 | [facility] | Trace | (missing) | (missing) | | | 17:55:55 | [facility] | | | | | | Emergency | | | | | | | Department | | | | + + + +---------+ + + + + | Result panel 90 | + + + + + + + + + | UA | 2021-07-22 | [facility] | Negative | (missing) | (missing) | | Leukocyte | 17:55:55 | [facility] | | | | | Esterase | | Emergency | | | | | | | Department | | | | + + + + + + + + + | Result panel 91 | + + + + + + + + + | UA Nitrite | 2021-07-22 | [facility] | Negative | (missing) | (missing) | | | 17:55:55 | [facility] | | | | | | Emergency | | | | | | | Department | | | | + + + + + + + + + | Result panel 92 | + + + + + + + + + | UA WBC/hpf | 2021-07-22 | [facility] | Negative | (missing) | (missing) | | | 17:55:55 | [facility] | | | | | | Emergency | | | | | | | Department | | | | + + + + + + + + + | Result panel 93 | + + + + + + + + + | UA RBC/HPF | 2021-07-22 | [facility] | 50-100 | (missing) | (missing) | | | 17:55:55 | [facility] | | | | | | Emergency | | | | | | | Department | | | | + + + + + + + + + | Result panel 94 | + + + + + + + + + | UA Bacteria | 2021-07-22 | [facility] | Negative | (missing) | (missing) | | | 17:55:55 | [facility] | | | | | | Emergency | | | | | | | Department | | | | + + + + + + + + + | Result panel 95 | + + + + + +--------+ + + | UA | 2021-07-22 | [facility] | Rare | (missing) | (missing) | | Epithelial | 17:55:55 | [facility] | | | | | Cell | | Emergency | | | | | | | Department | | | | + + + +--------+ + + + + | Result panel 96 | + + + + + +------+ + + | UA Cult | 2021-07-22 | [facility] | No | (missing) | (missing) | | Reflex? | 17:55:55 | [facility] | | | | | | Emergency | | | | | | | Department | | | | + + + +------+ + + + + | Result panel 97 | + + + + + + + + + | | 2021-07-22 | [facility] | Abnormal | (missing) | (missing) | | (unavailable | 17:55:55 | [facility] | | | | ) | | Emergency | | | | | | | Department | | | | + + + + + + + + + | Result panel 98 | + + +---------+ + + + + + | Final | 2021-07-27 | [facility] | No growth | (missing) | (missing) | | Report | 19:05:26 | [facility] | after 5 days | | | | | | Emergency | | | | | | | Department | | | | +---------+ + + + + + + + | Result panel 99 | + + +---------+ + + + + + | Final | 2021-07-28 | [facility] | No growth | (missing) | (missing) | | Report | 23:02 | [facility] | after 5 days | | | | | | Emergency | | | | | | | Department | | | | +---------+ + + + + + + + | Result panel 100 | + + + + + +-------+---------+ + | | 2021-08-11 | [facility] | 2.3 | mg/dL | (missing) | | (unavailable | 17:28 | [facility] | [facility] | | | | + + + +-------+---------+ + + + | Result panel 101 | + + + + + +-------+ + + | | 2021-08-11 | [facility] | 1.3 | (missing) | (missing) | | (unavailable | 18:00 | [facility] | [facility] | | | | + + + +-------+ + + + + | Result panel 102 | + + + + + +-------+ + + | | 2021-10-04 | [facility] | RED | (missing) | (missing) | | (unavailable | 13:25 | [facility] | [facility] | | | | + + + +-------+ + + + + | Result panel 103 | + + + + + + + + + | | 2021-10-04 | [facility] | CLOUDY | (missing) | (missing) | | (unavailable | 13:25 | [facility] | [facility] | | | | + + + + + + + + + | Result panel 104 | + + + + + +---------+ + + | | 2021-10-04 | [facility] | LARGE | (missing) | (missing) | | (unavailable | 13:25 | [facility] | | | | + + + +---------+ + + + + | Result panel 105 | + + + + + + + + + | | 2021-10-04 | [facility] | NEGATIVE | (missing) | (missing) | | (unavailable | 13:25 | [facility] | [facility] | | | | + + + + + + + + + | Result panel 106 | + + + + + + + + + | | 2021-10-04 | [facility] | NEGATIVE | (missing) | (missing) | | (unavailable | 13:25 | [facility] | | [facility] | | | | + + + + + + + + + | Result panel 107 | + + + + + +---------+ + + | | 2021-10-04 | [facility] | 1.010 | (missing) | (missing) | | (unavailable | 13:25 | [facility] | | [facility] | | | | + + + +---------+ + + + + | Result panel 108 | + + + + + +---------+ + + | | 2021-10-04 | [facility] | LARGE | (missing) | (missing) | | (unavailable | 13:25 | [facility] | | [facility] | | | | + + + +---------+ + + + + | Result panel 109 | + + + + + +-------+ + + | | 2021-10-04 | [facility] | 6.0 | (missing) | (missing) | | (unavailable | 13:25 | [facility] | [facility] | | | | + + + +-------+ + + + + | Result panel 110 | + + + + + +------+ + + | | 2021-10-04 | [facility] | 30 | (missing) | (missing) | | (unavailable | 13:25 | [facility] | | | | + + + +------+ + + + + | Result panel 111 | + + + + + + + + + | | 2021-10-04 | [facility] | NORMAL | (missing) | (missing) | | (unavailable | 13:25 | [facility] | [facility] | | | | + + + + + + + + + | Result panel 112 | + + + + + + + + + | | 2021-10-04 | [facility] | NEGATIVE | (missing) | (missing) | | (unavailable | 13:25 | [facility] | [facility] | | | | + + + + + + + + + | Result panel 113 | + + + + + + + + + | | 2021-10-04 | [facility] | NEGATIVE | (missing) | (missing) | | (unavailable | 13:25 | [facility] | [facility] | | | | + + + + + + + + + | Result panel 114 | + + + + + +-------+ + + | | 2021-10-04 | [facility] | >50 | (missing) | (missing) | | (unavailable | 13:25 | [facility] | | | | + + + +-------+ + + + + | Result panel 115 | + + + + + +--------+ + + | | 2021-10-04 | [facility] | 7-11 | (missing) | (missing) | | (unavailable | 13:25 | [facility] | | | | + + + +--------+ + + + + | Result panel 116 | + + + + + + + + + | | 2021-10-04 | [facility] | SQUAMOUS 1+ | (missing) | (missing) | | (unavailable | 13:25 | [facility] | | | | + + + + + + + + + | Result panel 117 | + + + + + + + + + | | 2021-10-04 | [facility] | NONE SEEN | (missing) | (missing) | | (unavailable | 13:25 | [facility] | | | | + + + + + + + + + | Result panel 118 | + + + + + + + + + | | 2021-10-04 | [facility] | NONE SEEN | (missing) | (missing) | | (unavailable | 13:25 | [facility] | [facility] | | | | + + + + + + + + + | Result panel 119 | + + + + + + + + + | | 2021-10-04 | [facility] | NONE SEEN | (missing) | (missing) | | (unavailable | 13:25 | [facility] | | | | + + + + + + + + + | Result panel 120 | + + + + + +-------+ + + | | 2021-10-04 | [facility] | Yes | (missing) | (missing) | | (unavailable | 13:25 | [facility] | | | | + + + +-------+ + + + + | Result panel 121 | + + + + + + + + + | | 2021-10-04 | [facility] | CLEAN CATCH | (missing) | (missing) | | (unavailable | 13:25 | [facility] | | | | + + + + + + + + + | Result panel 122 | + + + + + +---------+---------+ + | | 2021-10-04 | [facility] | 71.48 | mg/dL | (missing) | | (unavailable | 13:25 | [facility] | | | | + + + +---------+---------+ + + + | Result panel 123 | + + + + + +------+ + + | | 2021-10-04 | [facility] | 20 | (missing) | (missing) | | (unavailable | 13:25 | [facility] | [facility] | | | | + + + +------+ + + + + | Result panel 124 | + + + + + + + + + | | 2021-10-04 | [facility] | SEE SCANNED | (missing) | (missing) | | (unavailable | 13:25 | [facility] REPORT | | | | ) | | [facility] | | | | + + + + + + + + + | Result panel 125 | + + + + + +-------+ + + | | 2021-10-04 | [facility] | 6.3 | (missing) | (missing) | | (unavailable | 13:45 | [facility] | | | | + + + +-------+ + + + + | Result panel 126 | + + + + + +-------+ + + | | 2021-10-04 | [facility] | 3.1 | (missing) | (missing) | | (unavailable | 13:45 | [facility] | | | | + + + +-------+ + + + + | Result panel 127 | + + + + + +-------+ + + | | 2021-10-04 | [facility] | 3.2 | (missing) | (missing) | | (unavailable | 13:45 | [facility] | | | | + + + +-------+ + + + + | Result panel 128 | + + + + + +--------+ + + | | 2021-10-04 | [facility] | 0.97 | (missing) | (missing) | | (unavailable | 13:45 | [facility] | | | | + + + +--------+ + + + + | Result panel 129 | + + + + + +-------+ + + | | 2021-10-04 | [facility] | 0.4 | (missing) | (missing) | | (unavailable | 13:45 | [facility] | | | | + + + +-------+ + + + + | Result panel 130 | + + + + + +-----+ + + | | 2021-10-04 | [facility] | 7 | (missing) | (missing) | | (unavailable | 13:45 | [facility] | | | | + + + +-----+ + + + + | Result panel 131 | + + + + + +------+ + + | | 2021-10-04 | [facility] | 11 | (missing) | (missing) | | (unavailable | 13:45 | [facility] | | | | + + + +------+ + + + + | Result panel 132 | + + + + + +------+ + + | | 2021-10-04 | [facility] | 97 | (missing) | (missing) | | (unavailable | 13:45 | [facility] | | | | + + + +------+ + + + + | Result panel 133 | + + + + + +--------+ + + | | 2021-10-04 | [facility] | 10.3 | (missing) | (missing) | | (unavailable | 13:45 | [facility] | | | | + + + +--------+ + + + + | Result panel 134 | + + + + + + + + + | | 2021-10-04 | [facility] | NEGATIVE | (missing) | (missing) | | (unavailable | 16:40 | [facility] | | | | + + + + + + + + + | Result panel 135 | + + + + + + + + + | | 2021-10-04 | [facility] | NEGATIVE | (missing) | (missing) | | (unavailable | 16:40 | [facility] | | | | + + + + + + + + + | Result panel 136 | + + + + + + + + + | | 2021-10-04 | [facility] | NEGATIVE | (missing) | (missing) | | (unavailable | 16:40 | [facility] | | | | + + + + + + + + + | Result panel 137 | + + + + + + + + + | | 2021-10-04 | [facility] | NEGATIVE | (missing) | (missing) | | (unavailable | 16:40 | [facility] | | | | + + + + + + + + + | Result panel 138 | + + + + + +-------+ + + | | 2021-10-05 | [facility] | 4.0 | (missing) | (missing) | | (unavailable | 05:19 | [facility] | | | | + + + +-------+ + + + + | Result panel 139 | + + + + + +--------+ + + | | 2021-10-05 | [facility] | 3.07 | (missing) | (missing) | | (unavailable | 05:19 | [facility] | | | | + + + +--------+ + + + + | Result panel 140 | + + + + + +-------+ + + | | 2021-10-05 | [facility] | 9.3 | (missing) | (missing) | | (unavailable | 05:19 | [facility] | | | | + + + +-------+ + + + + | Result panel 141 | + + + + + +--------+ + + | | 2021-10-05 | [facility] | 27.6 | (missing) | (missing) | | (unavailable | 05:19 | [facility] | | | | + + + +--------+ + + + + | Result panel 142 | + + + + + +--------+ + + | | 2021-10-05 | [facility] | 89.9 | (missing) | (missing) | | (unavailable | 05:19 | [facility] | | | | + + + +--------+ + + + + | Result panel 143 | + + + + + +--------+ + + | | 2021-10-05 | [facility] | 30.5 | (missing) | (missing) | | (unavailable | 05:19 | [facility] | | | | + + + +--------+ + + + + | Result panel 144 | + + + + + +--------+ + + | | 2021-10-05 | [facility] | 33.9 | (missing) | (missing) | | (unavailable | 05:19 | [facility] | | | | + + + +--------+ + + + + | Result panel 145 | + + + + + +--------+ + + | | 2021-10-05 | [facility] | 15.0 | (missing) | (missing) | | (unavailable | 05:19 | [facility] | | | | + + + +--------+ + + + + | Result panel 146 | + + + + + +-------+ + + | | 2021-10-05 | [facility] | 197 | (missing) | (missing) | | (unavailable | 05:19 | [facility] | | | | + + + +-------+ + + + + | Result panel 147 | + + + + + +--------+ + + | | 2021-10-05 | [facility] | 77.8 | (missing) | (missing) | | (unavailable | 05:19 | [facility] | | | | + + + +--------+ + + + + | Result panel 148 | + + + + + +--------+ + + | | 2021-10-05 | [facility] | 15.2 | (missing) | (missing) | | (unavailable | 05:19 | [facility] | | | | + + + +--------+ + + + + | Result panel 149 | + + + + + +-------+ + + | | 2021-10-05 | [facility] | 6.3 | (missing) | (missing) | | (unavailable | 05:19 | [facility] | | | | + + + +-------+ + + + + | Result panel 150 | + + + + + +-------+ + + | | 2021-10-05 | [facility] | 0.2 | (missing) | (missing) | | (unavailable | 05:19 | [facility] | | | | + + + +-------+ + + + + | Result panel 151 | + + + + + +-------+ + + | | 2021-10-05 | [facility] | 0.5 | (missing) | (missing) | | (unavailable | 05:19 | [facility] | | | | + + + +-------+ + + + + | Result panel 152 | + + + + + +-------+ + + | | 2021-10-05 | [facility] | 4.0 | (missing) | (missing) | | (unavailable | 05:19 | [facility] | | | | + + + +-------+ + + + + | Result panel 153 | + + + + + +--------+ + + | | 2021-10-05 | [facility] | 3.07 | (missing) | (missing) | | (unavailable | 05:19 | [facility] | | | | + + + +--------+ + + + + | Result panel 154 | + + + + + +-------+ + + | | 2021-10-05 | [facility] | 9.3 | (missing) | (missing) | | (unavailable | 05:19 | [facility] | | | | + + + +-------+ + + + + | Result panel 155 | + + + + + +--------+ + + | | 2021-10-05 | [facility] | 27.6 | (missing) | (missing) | | (unavailable | 05:19 | [facility] | | | | + + + +--------+ + + + + | Result panel 156 | + + + + + +--------+ + + | | 2021-10-05 | [facility] | 89.9 | (missing) | (missing) | | (unavailable | 05:19 | [facility] | | | | + + + +--------+ + + + + | Result panel 157 | + + + + + +--------+ + + | | 2021-10-05 | [facility] | 30.5 | (missing) | (missing) | | (unavailable | 05:19 | [facility] | | | | + + + +--------+ + + + + | Result panel 158 | + + + + + +--------+ + + | | 2021-10-05 | [facility] | 33.9 | (missing) | (missing) | | (unavailable | 05:19 | [facility] | | | | + + + +--------+ + + + + | Result panel 159 | + + + + + +--------+ + + | | 2021-10-05 | [facility] | 15.0 | (missing) | (missing) | | (unavailable | 05:19 | [facility] | | | | + + + +--------+ + + + + | Result panel 160 | + + + + + +-------+ + + | | 2021-10-05 | [facility] | 197 | (missing) | (missing) | | (unavailable | 05:19 | [facility] | | | | + + + +-------+ + + + + | Result panel 161 | + + + + + +--------+ + + | | 2021-10-05 | [facility] | 77.8 | (missing) | (missing) | | (unavailable | 05:19 | [facility] | | | | + + + +--------+ + + + + | Result panel 162 | + + + + + +--------+ + + | | 2021-10-05 | [facility] | 15.2 | (missing) | (missing) | | (unavailable | 05:19 | [facility] | | | | + + + +--------+ + + + + | Result panel 163 | + + + + + +-------+ + + | | 2021-10-05 | [facility] | 6.3 | (missing) | (missing) | | (unavailable | 05:19 | [facility] | | | | + + + +-------+ + + + + | Result panel 164 | + + + + + +-------+ + + | | 2021-10-05 | [facility] | 0.2 | (missing) | (missing) | | (unavailable | 05:19 | [facility] | | | | + + + +-------+ + + + + | Result panel 165 | + + + + + +-------+ + + | | 2021-10-05 | [facility] | 0.5 | (missing) | (missing) | | (unavailable | 05:19 | [facility] | | | | + + + +-------+ + + + + | Result panel 166 | + + + + + +-------+---------+ + | | 2021-10-06 | [facility] | 199 | mg/dL | (missing) | | (unavailable | 05:50 | [facility] | | | | + + + +-------+---------+ + + + | Result panel 167 | + + + + + +------+---------+ + | | 2021-10-06 | [facility] | 41 | mg/dL | (missing) | | (unavailable | 05:50 | [facility] | | | | + + + +------+---------+ + + + | Result panel 168 | + + + + + +--------+---------+ + | | 2021-10-06 | [facility] | 1.64 | mg/dL | (missing) | | (unavailable | 05:50 | [facility] | | | | + + + +--------+---------+ + + + | Result panel 169 | + + + + + +---------+ + + | | 2021-10-06 | [facility] | 43.36 | (missing) | (missing) | | (unavailable | 05:50 | [facility] | | | | + + + +---------+ + + + + | Result panel 170 | + + + + + +---------+ + + | | 2021-10-06 | [facility] | 25.00 | (missing) | (missing) | | (unavailable | 05:50 | [facility] | | | | + + + +---------+ + + + + | Result panel 171 | + + + + + +-------+ + + | | 2021-10-06 | [facility] | 132 | (missing) | (missing) | | (unavailable | 05:50 | [facility] | | | | + + + +-------+ + + + + | Result panel 172 | + + + + + +-------+ + + | | 2021-10-06 | [facility] | 4.9 | (missing) | (missing) | | (unavailable | 05:50 | [facility] | | | | + + + +-------+ + + + + | Result panel 173 | + + + + + +-------+ + + | | 2021-10-06 | [facility] | 103 | (missing) | (missing) | | (unavailable | 05:50 | [facility] | | | | + + + +-------+ + + + + | Result panel 174 | + + + + + +------+ + + | | 2021-10-06 | [facility] | 24 | (missing) | (missing) | | (unavailable | 05:50 | [facility] | | | | + + + +------+ + + + + | Result panel 175 | + + + + + +-------+ + + | | 2021-10-06 | [facility] | 9.9 | (missing) | (missing) | | (unavailable | 05:50 | [facility] | | | | + + + +-------+ + + + + | Result panel 176 | + + + + + +-------+---------+ + | | 2021-10-06 | [facility] | 8.2 | mg/dL | (missing) | | (unavailable | 05:50 | [facility] | | | | + + + +-------+---------+ + + + | Result panel 177 | + + + + + +-------+---------+ + | | 2021-10-06 | [facility] | 2.3 | mg/dL | (missing) | | (unavailable | 05:50 | [facility] | | | | + + + +-------+---------+ + + + | Result panel 178 | + + + + + +-------+---------+ + | | 2021-10-06 | [facility] | 199 | mg/dL | (missing) | | (unavailable | 05:50 | [facility] | | | | + + + +-------+---------+ + + + | Result panel 179 | + + + + + +------+---------+ + | | 2021-10-06 | [facility] | 41 | mg/dL | (missing) | | (unavailable | 05:50 | [facility] | | | | + + + +------+---------+ + + + | Result panel 180 | + + + + + +--------+---------+ + | | 2021-10-06 | [facility] | 1.64 | mg/dL | (missing) | | (unavailable | 05:50 | [facility] | | | | + + + +--------+---------+ + + + | Result panel 181 | + + + + + +---------+ + + | | 2021-10-06 | [facility] | 43.36 | (missing) | (missing) | | (unavailable | 05:50 | [facility] | | | | + + + +---------+ + + + + | Result panel 182 | + + + + + +---------+ + + | | 2021-10-06 | [facility] | 25.00 | (missing) | (missing) | | (unavailable | 05:50 | [facility] | | | | + + + +---------+ + + + + | Result panel 183 | + + + + + +-------+ + + | | 2021-10-06 | [facility] | 132 | (missing) | (missing) | | (unavailable | 05:50 | [facility] | | | | + + + +-------+ + + + + | Result panel 184 | + + + + + +-------+ + + | | 2021-10-06 | [facility] | 4.9 | (missing) | (missing) | | (unavailable | 05:50 | [facility] | | | | + + + +-------+ + + + + | Result panel 185 | + + + + + +-------+ + + | | 2021-10-06 | [facility] | 103 | (missing) | (missing) | | (unavailable | 05:50 | [facility] | | | | + + + +-------+ + + + + | Result panel 186 | + + + + + +------+ + + | | 2021-10-06 | [facility] | 24 | (missing) | (missing) | | (unavailable | 05:50 | [facility] | | | | + + + +------+ + + + + | Result panel 187 | + + + + + +-------+ + + | | 2021-10-06 | [facility] | 9.9 | (missing) | (missing) | | (unavailable | 05:50 | [facility] | | | | + + + +-------+ + + + + | Result panel 188 | + + + + + +-------+---------+ + | | 2021-10-06 | [facility] | 8.2 | mg/dL | (missing) | | (unavailable | 05:50 | [facility] | | | | + + + +-------+---------+ + + + | Result panel 189 | + + + + + +-------+---------+ + | | 2021-10-06 | [facility] | 2.3 | mg/dL | (missing) | | (unavailable | 05:50 | [facility] | | | | + + + +-------+---------+ + + + | Result panel 190 | + + + + + +-------+ + + | | 2021-10-06 | [facility] | 170 | (missing) | (missing) | | (unavailable | 07:37 | [facility] | | | | + + + +-------+ + + + + | Result panel 191 | + + + + + +-------+ + + | | 2021-10-06 | [facility] | 170 | (missing) | (missing) | | (unavailable | 07:37 | [facility] | | | | + + + +-------+ + + + + | Result panel 192 | + + + + + + + + + | | 2022-06-07 | [facility] | NEGATIVE | (missing) | (missing) | | (unavailable | 10:22:08 | [facility] | | | | + + + + + + + + + | Result panel 193 | + + + + + + + + + | | 2022-06-07 | [facility] | POSITIVE | (missing) | (missing) | | (unavailable | 10:22:08 | [facility] | | | | + + + + + + + + + | Result panel 194 | + + + + + + + + + | | 2022-06-07 | [facility] | NEGATIVE | (missing) | (missing) | | (unavailable | 10:22:08 | [facility] | | | | + + + + + + + + + | Result panel 195 | + + + + + + + + + | | 2022-06-07 | [facility] | NEGATIVE | (missing) | (missing) | | (unavailable | 10:22:08 | [facility] | | | | + + + + + + + + + | Result panel 196 | + + + + + +-------+ + + | | 2022-06-07 | [facility] | 4.9 | (missing) | (missing) | | (unavailable | 13:44:08 | [facility] | | | | + + + +-------+ + + + + | Result panel 197 | + + + + + +--------+ + + | | 2022-06-07 | [facility] | 4.00 | (missing) | (missing) | | (unavailable | 13:44:08 | [facility] | | | | + + + +--------+ + + + + | Result panel 198 | + + + + + +--------+ + + | | 2022-06-07 | [facility] | 11.6 | (missing) | (missing) | | (unavailable | 13:44:08 | [facility] | | | | + + + +--------+ + + + + | Result panel 199 | + + + + + +--------+ + + | | 2022-06-07 | [facility] | 36.1 | (missing) | (missing) | | (unavailable | 13:44:08 | [facility] | | | | + + + +--------+ + + + + | Result panel 200 | + + + + + +--------+ + + | | 2022-06-07 | [facility] | 90.4 | (missing) | (missing) | | (unavailable | 13:44:08 | [facility] | | | | + + + +--------+ + + + + | Result panel 201 | + + + + + +--------+ + + | | 2022-06-07 | [facility] | 29.0 | (missing) | (missing) | | (unavailable | 13:44:08 | [facility] | | | | + + + +--------+ + + + + | Result panel 202 | + + + + + +--------+ + + | | 2022-06-07 | [facility] | 32.1 | (missing) | (missing) | | (unavailable | 13:44:08 | [facility] | | | | + + + +--------+ + + + + | Result panel 203 | + + + + + +--------+ + + | | 2022-06-07 | [facility] | 16.0 | (missing) | (missing) | | (unavailable | 13:44:08 | [facility] | | | | + + + +--------+ + + + + | Result panel 204 | + + + + + +-------+ + + | | 2022-06-07 | [facility] | 140 | (missing) | (missing) | | (unavailable | 13:44:08 | [facility] | | | | + + + +-------+ + + + + | Result panel 205 | + + + + + +--------+ + + | | 2022-06-07 | [facility] | 82.5 | (missing) | (missing) | | (unavailable | 13:44:08 | [facility] | | | | + + + +--------+ + + + + | Result panel 206 | + + + + + +-------+ + + | | 2022-06-07 | [facility] | 3.7 | (missing) | (missing) | | (unavailable | 13:44:08 | [facility] | | | | + + + +-------+ + + + + | Result panel 207 | + + + + + +--------+ + + | | 2022-06-07 | [facility] | 13.0 | (missing) | (missing) | | (unavailable | 13:44:08 | [facility] | | | | + + + +--------+ + + + + | Result panel 208 | + + + + + +-------+ + + | | 2022-06-07 | [facility] | 0.5 | (missing) | (missing) | | (unavailable | 13:44:08 | [facility] | | | | + + + +-------+ + + + + | Result panel 209 | + + + + + +-------+ + + | | 2022-06-07 | [facility] | 0.3 | (missing) | (missing) | | (unavailable | 13:44:08 | [facility] | | | | + + + +-------+ + + + + | Result panel 210 | + + + + + +-------+ + + | | 2022-06-07 | [facility] | 7.2 | (missing) | (missing) | | (unavailable | 13:44:08 | [facility] | | | | + + + +-------+ + + + + | Result panel 211 | + + + + + +-------+ + + | | 2022-06-07 | [facility] | 3.8 | (missing) | (missing) | | (unavailable | 13:44:08 | [facility] | | | | + + + +-------+ + + + + | Result panel 212 | + + + + + +-------+ + + | | 2022-06-07 | [facility] | 3.4 | (missing) | (missing) | | (unavailable | 13:44:08 | [facility] | | | | + + + +-------+ + + + + | Result panel 213 | + + + + + +--------+ + + | | 2022-06-07 | [facility] | 1.12 | (missing) | (missing) | | (unavailable | 13:44:08 | [facility] | | | | + + + +--------+ + + + + | Result panel 214 | + + + + + +-------+ + + | | 2022-06-07 | [facility] | 0.5 | (missing) | (missing) | | (unavailable | 13:44:08 | [facility] | | | | + + + +-------+ + + + + | Result panel 215 | + + + + + +------+ + + | | 2022-06-07 | [facility] | 17 | (missing) | (missing) | | (unavailable | 13:44:08 | [facility] | | | | + + + +------+ + + + + | Result panel 216 | + + + + + +------+ + + | | 2022-06-07 | [facility] | 21 | (missing) | (missing) | | (unavailable | 13:44:08 | [facility] | | | | + + + +------+ + + + + | Result panel 217 | + + + + + +------+ + + | | 2022-06-07 | [facility] | 73 | (missing) | (missing) | | (unavailable | 13:44:08 | [facility] | | | | + + + +------+ + + + + | Result panel 218 | + + + + + +-------+ + + | | 2022-06-07 | [facility] | 6.5 | (missing) | (missing) | | (unavailable | 13:44:08 | [facility] | | | | + + + +-------+ + + + + | Result panel 219 | + + + + + +-------+ + + | | 2022-06-08 | [facility] | 108 | (missing) | (missing) | | (unavailable | 16:24:08 | [facility] | | | | + + + +-------+ + + + + | Result panel 220 | + + + + + +------+---------+ + | | 2022-06-10 | [facility] | 81 | mg/dL | (missing) | | (unavailable | 05:43:08 | [facility] | | | | + + + +------+---------+ + + + | Result panel 221 | + + + + + +------+---------+ + | | 2022-06-10 | [facility] | 31 | mg/dL | (missing) | | (unavailable | 05:43:08 | [facility] | | | | + + + +------+---------+ + + + | Result panel 222 | + + + + + +--------+---------+ + | | 2022-06-10 | [facility] | 1.91 | mg/dL | (missing) | | (unavailable | 05:43:08 | [facility] | | | | + + + +--------+---------+ + + + | Result panel 223 | + + + + + +------+ + + | | 2022-06-10 | [facility] | 40 | (missing) | (missing) | | (unavailable | 05:43:08 | [facility] | | | | + + + +------+ + + + + | Result panel 224 | + + + + + +---------+ + + | | 2022-06-10 | [facility] | 16.23 | (missing) | (missing) | | (unavailable | 05:43:08 | [facility] | | | | + + + +---------+ + + + + | Result panel 225 | + + + + + +-------+ + + | | 2022-06-10 | [facility] | 134 | (missing) | (missing) | | (unavailable | 05:43:08 | [facility] | | | | + + + +-------+ + + + + | Result panel 226 | + + + + + +-------+ + + | | 2022-06-10 | [facility] | 3.9 | (missing) | (missing) | | (unavailable | 05:43:08 | [facility] | | | | + + + +-------+ + + + + | Result panel 227 | + + + + + +-------+ + + | | 2022-06-10 | [facility] | 105 | (missing) | (missing) | | (unavailable | 05:43:08 | [facility] | | | | + + + +-------+ + + + + | Result panel 228 | + + + + + +------+ + + | | 2022-06-10 | [facility] | 18 | (missing) | (missing) | | (unavailable | 05:43:08 | [facility] | | | | + + + +------+ + + + + | Result panel 229 | + + + + + +--------+ + + | | 2022-06-10 | [facility] | 14.9 | (missing) | (missing) | | (unavailable | 05:43:08 | [facility] | | | | + + + +--------+ + + + + | Result panel 230 | + + + + + +-------+---------+ + | | 2022-06-10 | [facility] | 8.7 | mg/dL | (missing) | | (unavailable | 05:43:08 | [facility] | | | | + + + +-------+---------+ + Social History + + + + | date | description | facility | + + + + | 2021-11-27 00:00 | Tobacco smoking | [facility] | | | consumption unknown | Department | + + + + Vital Signs + + + +---------+ | date | measurement | value | units | + + + +---------+ | 2021-07-22 00:00 | BP_diastolic | 69 | mmHg | + + + +---------+ | 2021-07-22 00:00 | BP_systolic | 111 | mmHg | + + + +---------+ | 2021-07-22 00:00 | heart_rate | 77 | /min | + + + +---------+ | 2021-07-22 00:00 | height_metric | 170.2 | cm | + + + +---------+ | 2021-07-22 00:00 | height_standard | 67.01 | in | + + + +---------+ | 2021-07-22 00:00 | o2_saturation | 100 | % | + + + +---------+ | 2021-07-22 00:00 | respiration_rate | 16 | /min | + + + +---------+ | 2021-07-22 00:00 | temperature_metric | 36.78 | C | | | | | | + + + +---------+ | 2021-07-22 00:00 | | 98.2 | F | | | temperature_standar | | | | | d | | | + + + +---------+ | 2021-08-07 00:00 | BMI | 28.3 | kg/m2 | + + + +---------+ | 2021-08-07 00:00 | BP_diastolic | 52 | mmHg | + + + +---------+ | 2021-08-07 00:00 | BP_systolic | 125 | mmHg | + + + +---------+ | 2021-08-07 00:00 | heart_rate | 85 | /min | + + + +---------+ | 2021-08-07 00:00 | height_metric | 170.18 | cm | + + + +---------+ | 2021-08-07 00:00 | height_standard | 67 | in | + + + +---------+ | 2021-08-07 00:00 | o2_saturation | 100 | % | + + + +---------+ | 2021-08-07 00:00 | respiration_rate | 18 | /min | + + + +---------+ | 2021-08-07 00:00 | temperature_metric | 36.33 | C | | | | | | + + + +---------+ | 2021-08-07 00:00 | | 97.4 | F | | | temperature_standar | | | | | d | | | + + + +---------+ | 2021-08-07 00:00 | weight_metric | 81.96 | kg | + + + +---------+ | 2021-08-07 00:00 | weight_standard | 180.69 | lb | + + + +---------+ | 2021-08-11 00:00 | BMI | 23.1 | kg/m2 | + + + +---------+ | 2021-08-11 00:00 | height_metric | 170.18 | cm | + + + +---------+ | 2021-08-11 00:00 | height_standard | 67 | in | + + + +---------+ | 2021-08-11 00:00 | weight_metric | 66.99 | kg | + + + +---------+ | 2021-08-11 00:00 | weight_standard | 147.69 | lb | + + + +---------+ | 2021-08-13 00:00 | BP_diastolic | 69 | mmHg | + + + +---------+ | 2021-08-13 00:00 | BP_systolic | 137 | mmHg | + + + +---------+ | 2021-08-13 00:00 | heart_rate | 86 | /min | + + + +---------+ | 2021-08-13 00:00 | o2_saturation | 100 | % | + + + +---------+ | 2021-08-13 00:00 | respiration_rate | 17 | /min | + + + +---------+ | 2021-08-13 00:00 | temperature_metric | 36.5 | C | | | | | | + + + +---------+ | 2021-08-13 00:00 | | 97.7 | F | | | temperature_standar | | | | | d | | | + + + +---------+ | 2021-10-04 00:00 | BMI | 25.1 | kg/m2 | + + + +---------+ | 2021-10-04 00:00 | height_metric | 170.18 | cm | + + + +---------+ | 2021-10-04 00:00 | height_standard | 67 | in | + + + +---------+ | 2021-10-04 00:00 | weight_metric | 72.8 | kg | + + + +---------+ | 2021-10-04 00:00 | weight_standard | 160.5 | lb | + + + +---------+ | 2021-10-06 00:00 | BP_diastolic | 58 | mmHg | + + + +---------+ | 2021-10-06 00:00 | BP_systolic | 107 | mmHg | + + + +---------+ | 2021-10-06 00:00 | heart_rate | 75 | /min | + + + +---------+ | 2021-10-06 00:00 | o2_saturation | 100 | % | + + + +---------+ | 2021-10-06 00:00 | respiration_rate | 20 | /min | + + + +---------+ | 2021-10-06 00:00 | temperature_metric | 36.44 | C | | | | | | + + + +---------+ | 2021-10-06 00:00 | | 97.6 | F | | | temperature_standar | | | | | d | | | + + + +---------+ | 2022-01-10 00:00 | BMI | 25.2 | kg/m2 | + + + +---------+ | 2022-01-10 00:00 | BP_diastolic | 61 | mmHg | + + + +---------+ | 2022-01-10 00:00 | BP_systolic | 137 | mmHg | + + + +---------+ | 2022-01-10 00:00 | heart_rate | 75 | /min | + + + +---------+ | 2022-01-10 00:00 | height_metric | 170.18 | cm | + + + +---------+ | 2022-01-10 00:00 | height_standard | 67 | in | + + + +---------+ | 2022-01-10 00:00 | o2_saturation | 99 | % | + + + +---------+ | 2022-01-10 00:00 | respiration_rate | 17 | /min | + + + +---------+ | 2022-01-10 00:00 | temperature_metric | 36.72 | C | | | | | | + + + +---------+ | 2022-01-10 00:00 | | 98.1 | F | | | temperature_standar | | | | | d | | | + + + +---------+ | 2022-01-10 00:00 | weight_metric | 72.89 | kg | + + + +---------+ | 2022-01-10 00:00 | weight_standard | 160.69 | lb | + + + +---------+ | 2022-02-15 00:00 | BMI | 25.2 | kg/m2 | + + + +---------+ | 2022-02-15 00:00 | BP_diastolic | 49 | mmHg | + + + +---------+ | 2022-02-15 00:00 | BP_systolic | 134 | mmHg | + + + +---------+ | 2022-02-15 00:00 | heart_rate | 65 | /min | + + + +---------+ | 2022-02-15 00:00 | height_metric | 170.18 | cm | + + + +---------+ | 2022-02-15 00:00 | height_standard | 67 | in | + + + +---------+ | 2022-02-15 00:00 | o2_saturation | 100 | % | + + + +---------+ | 2022-02-15 00:00 | respiration_rate | 16 | /min | + + + +---------+ | 2022-02-15 00:00 | temperature_metric | 36.33 | C | | | | | | + + + +---------+ | 2022-02-15 00:00 | | 97.4 | F | | | temperature_standar | | | | | d | | | + + + +---------+ | 2022-02-15 00:00 | weight_metric | 72.89 | kg | + + + +---------+ | 2022-02-15 00:00 | weight_standard | 160.69 | lb | + + + +---------+ | 2022-06-07 00:00 | BMI | 28.8 | kg/m2 | + + + +---------+ | 2022-06-07 00:00 | height_metric | 170.18 | cm | + + + +---------+ | 2022-06-07 00:00 | height_standard | 67 | in | + + + +---------+ | 2022-06-07 00:00 | weight_metric | 83.4 | kg | + + + +---------+ | 2022-06-07 00:00 | weight_standard | 183.87 | lb | + + + +---------+ | 2022-06-10 00:00 | BP_diastolic | 62 | mmHg | + + + +---------+ | 2022-06-10 00:00 | BP_systolic | 115 | mmHg | + + + +---------+ | 2022-06-10 00:00 | heart_rate | 78 | /min | + + + +---------+ | 2022-06-10 00:00 | o2_saturation | 97 | % | + + + +---------+ | 2022-06-10 00:00 | respiration_rate | 16 | /min | + + + +---------+ | 2022-06-10 00:00 | temperature_metric | 37 | C | | | | | | + + + +---------+ | 2022-06-10 00:00 | | 98.6 | F | | | temperature_standar | | | | | d | | | + + + +---------+"
--- OUTSIDE RECORDS SUMMARY | ~2023-02-17 | XMS | Continuity of Care Document ---
Demographics + + + | Address | [address] | | | [place] [address] | + + + | Preferred Language | Unknown | + + + | Marital Status | | + + + | Latter Day Affiliation | Unknown | + + + | Race | or | + + + | Ethnic Group | Not or | + + + Author + + + | Author | [facility] | + + + | Organization | [facility] | + + + | Address | [address] [place] [address] | | | [place] [address] | + + + | Phone | | + + + Care Team Providers + + + + | Care Speech Language Pathologist Prn Name | Role | Phone | + [...] 2022-01-10 00:00 | Td (Adult) Preservative | [facility] | | | Free | | + + + + | 2022-02-15 00:00 | Td (Adult) Preservative | [facility] | | | Free | | + + + + | 2022-06-10 00:00 | Td (Adult) Preservative | [facility] | | | Free | | + + + + | 2018-07-20 00:00 | Tdap | [facility] | + + + + | 2018-07-20 00:00 | Tdap | [facility] | + + + + Medications + + + + | date | description | facility | + + + + | 2022-01-10 00:00 | CETIRIZINE HCL | [facility] | + + + + | 2022-02-15 00:00 | CETIRIZINE HCL | [facility] | + + + + | 2018-02-23 00:00 | CIPROFLOXACIN 0.3% | [facility] | + + + + | 2018-02-23 00:00 | CIPROFLOXACIN 0.3% | [facility] | + + + + | 2015-04-28 00:00 | ONDANSETRON HCL | [facility] | + + + + | 2015-04-28 00:00 | ONDANSETRON HCL | [facility] | + + + + | 2022-01-10 00:00 | TRIAMCINOLONE ACETONIDE | [facility] | + + + + | 2022-02-15 00:00 | TRIAMCINOLONE ACETONIDE | [facility] | + + + + | 2022-06-10 00:00 | TRIAMCINOLONE ACETONIDE | [facility] | + + + + | 2022-01-10 00:00 | IPRATROPIUM/ALBUTEROL | [facility] | | | SULFATE | | + + + + | 2022-02-15 00:00 | IPRATROPIUM/ALBUTEROL | [facility] | | | SULFATE | | + + + + | 2022-06-10 00:00 | IPRATROPIUM/ALBUTEROL | [facility] | | | SULFATE | | + + + + | 2022-01-10 00:00 | BUDESONIDE/FORMOTEROL | [facility] | | | FUMARATE | | + + + + | 2022-02-15 00:00 | BUDESONIDE/FORMOTEROL | [facility] | | | FUMARATE | | + + + + | 2022-06-10 00:00 | BUDESONIDE/FORMOTEROL | [facility] | | | FUMARATE | | + + + + | 2022-01-10 00:00 | Sod Phos [place]/Sod Phos | [facility] | | | Dibas | | + + + + | 2022-02-15 00:00 | Sod Phos [place]/Sod Phos | [facility] | | | Dibas | | + + + + | 2022-06-10 00:00 | Sod Phos [place]/Sod Phos | [facility] | | | [place] | | + + + + | 2022-01-10 00:00 | APIXABAN | [facility] | + + + + | 2022-02-15 00:00 | APIXABAN | [facility] | + + + + | 2022-06-10 00:00 | APIXABAN | [facility] | + + + + | 2015-03-10 00:00 | IPRATROPIUM/ALBUTEROL | [facility] | | | SULFATE | | + + + + | 2015-03-10 00:00 | IPRATROPIUM/ALBUTEROL | [facility] | | | SULFATE | | + + + + | 2022-01-10 00:00 | PREDNISOLONE ACETATE | [facility] | + + + + | 2022-02-15 00:00 | PREDNISOLONE ACETATE | [facility] | + + + + | 2022-06-10 00:00 | PREDNISOLONE ACETATE | [facility] | + + + + | 2014-09-14 00:00 | DOXYCYCLINE HYCLATE | [facility] | + + + + | 2014-09-14 00:00 | DOXYCYCLINE HYCLATE | [facility] | + + + + | 2022-01-10 00:00 | DOXYCYCLINE HYCLATE | [facility] | + + + + | 2022-02-15 00:00 | DOXYCYCLINE HYCLATE | [facility] | + + + + | 2022-06-10 00:00 | DOXYCYCLINE HYCLATE | [facility] | + + + + | 2021-11-27 00:00 | 1 ml hydromorphone | [facility] | | | hydrochloride 1 mg/ml | Department | | | cartridge | | + + + + | 2022-06-10 00:00 | Insulin | [facility] | | | Hum. IsiahrecRenatoanlog | | + + + + | 2021-11-27 00:00 | 1 ml hydromorphone | [facility] | | | hydrochloride 1 mg/ml | Department | | | prefilled syringe | | | | [dilaudid] | | + + + + | 2022-01-10 00:00 | ALLOPURINOL | [facility] | + + + + | 2022-02-15 00:00 | ALLOPURINOL | [facility] | + + + + | 2022-06-10 00:00 | ALLOPURINOL | [facility] | + + + + | 2022-01-10 00:00 | ALLOPURINOL | [facility] | + + + + | 2022-02-15 00:00 | ALLOPURINOL | [facility] | + + + + | 2022-06-10 00:00 | ALLOPURINOL | [facility] | + + + + | 2022-01-10 00:00 | | [facility] | | | SULFAMETHOXAZOLE/TRIMETHOPR | | | | IM | | + + + + | 2022-02-15 00:00 | | [facility] | | | SULFAMETHOXAZOLE/TRIMETHOPR | | | | IM | | + + + + | 2022-01-10 00:00 | TACROLIMUS | [facility] | + + + + | 2022-02-15 00:00 | TACROLIMUS | [facility] | + + + + | 2022-06-10 00:00 | TACROLIMUS | [facility] | + + + + | 2022-01-10 00:00 | SODIUM BICARBONATE | [facility] | + + + + | 2022-02-15 00:00 | SODIUM BICARBONATE | [facility] | + + + + | 2022-06-10 00:00 | SODIUM BICARBONATE | [facility] | + + + + | 2022-01-10 00:00 | MYCOPHENOLATE MOFETIL | [facility] | + + + + | 2022-02-15 00:00 | MYCOPHENOLATE MOFETIL | [facility] | + + + + | 2022-06-10 00:00 | MYCOPHENOLATE MOFETIL | [facility] | + + + + | 2022-01-10 00:00 | LEVOFLOXACIN | [facility] | + + + + | 2022-02-15 00:00 | LEVOFLOXACIN | [facility] | + + + + | 2022-06-10 00:00 | LEVOFLOXACIN | [facility] | + + + + | 2022-01-10 00:00 | MONTELUKAST SODIUM | [facility] | + + + + | 2022-02-15 00:00 | MONTELUKAST SODIUM | [facility] | + + + + | 2022-06-10 00:00 | MONTELUKAST SODIUM | [facility] | + + + + | 2022-01-10 00:00 | OMEPRAZOLE | [facility] | + + + + | 2022-02-15 00:00 | OMEPRAZOLE | [facility] | + + + + | 2022-06-10 00:00 | OMEPRAZOLE | [facility] | + + + + | 2022-01-10 00:00 | CITALOPRAM HYDROBROMIDE | [facility] | + + + + | 2022-02-15 00:00 | CITALOPRAM HYDROBROMIDE | [facility] | + + + + | 2022-06-10 00:00 | CITALOPRAM HYDROBROMIDE | [facility] | + + + + | 2022-01-10 00:00 | FUROSEMIDE | [facility] | + + + + | 2022-02-15 00:00 | FUROSEMIDE | [facility] | + + + + | 2022-06-10 00:00 | FUROSEMIDE | [facility] | + + + + | 2018-08-12 00:00 | BENZONATATE | [facility] | + + + + | 2018-08-12 00:00 | BENZONATATE | [facility] | + + + + | 2022-01-10 00:00 | CALCIUM CARBONATE | [facility] | + + + + | 2022-02-15 00:00 | CALCIUM CARBONATE | [facility] | + + + + | 2022-06-10 00:00 | CALCIUM CARBONATE | [facility] | + + + + | 2014-05-14 00:00 | AZITHROMYCIN | [facility] | + + + + | 2014-05-14 00:00 | AZITHROMYCIN | [facility] | + + + + | 2014-09-14 00:00 | AZITHROMYCIN | [facility] | + + + + | 2014-09-14 00:00 | AZITHROMYCIN | [facility] | + + + + | 2022-01-10 00:00 | AMLODIPINE BESYLATE | [facility] | + + + + | 2022-02-15 00:00 | AMLODIPINE BESYLATE | [facility] | + + + + | 2022-06-10 00:00 | AMLODIPINE BESYLATE | [facility] | + + + + | 2022-01-10 00:00 | CITALOPRAM HYDROBROMIDE | [facility] | + + + + | 2022-02-15 00:00 | CITALOPRAM HYDROBROMIDE | [facility] | + + + + | 2022-06-10 00:00 | CITALOPRAM HYDROBROMIDE | [facility] | + + + + | 2022-01-10 00:00 | VALGANCICLOVIR HCL | [facility] | + + + + | 2022-02-15 00:00 | VALGANCICLOVIR HCL | [facility] | + + + + | 2022-01-10 00:00 | AMLODIPINE BESYLATE | [facility] | + + + + | 2022-02-15 00:00 | AMLODIPINE BESYLATE | [facility] | + + + + | 2022-06-10 00:00 | AMLODIPINE BESYLATE | [facility] | + + + + | 2022-01-10 00:00 | ASPIRIN | [facility] | + + + + | 2022-02-15 00:00 | ASPIRIN | [facility] | + + + + | 2022-06-10 00:00 | ASPIRIN | [facility] | + + + + | 2015-11-19 00:00 | CEPHALEXIN | [facility] | + + + + | 2015-11-19 00:00 | CEPHALEXIN | [facility] | + + + + | 2022-01-10 00:00 | FUROSEMIDE | [facility] | + + + + | 2022-02-15 00:00 | FUROSEMIDE | [facility] | + + + + | 2022-06-10 00:00 | FUROSEMIDE | [facility] | + + + + | 2016-07-08 00:00 | GENTAMICIN SULFATE | [facility] | + + + + | 2016-07-08 00:00 | GENTAMICIN SULFATE | [facility] | + + + + | 2016-09-17 00:00 | ONDANSETRON | [facility] | + + + + | 2016-09-17 00:00 | ONDANSETRON | [facility] | + + + + | 2014-03-08 00:00 | predniSONE | [facility] | + + + + | 2014-03-08 00:00 | predniSONE | [facility] | + + + + | 2014-05-14 00:00 | predniSONE | [facility] | + + + + | 2014-05-14 00:00 | predniSONE | [facility] | + + + + | 2015-10-05 00:00 | predniSONE | [facility] | + + + + | 2015-10-05 00:00 | predniSONE | [facility] | + + + + | 2016-02-01 00:00 | predniSONE | [facility] | + + + + | 2016-02-01 00:00 | predniSONE | [facility] | + + + + | 2016-04-16 00:00 | predniSONE | [facility] | + + + + | 2016-04-16 00:00 | predniSONE | [facility] | + + + + | 2018-08-12 00:00 | predniSONE | [facility] | + + + + | 2018-08-12 00:00 | predniSONE | [facility] | + + + + | 2022-01-10 00:00 | PREDNISONE | [facility] | + + + + | 2022-02-15 00:00 | PREDNISONE | [facility] | + + + + | 2022-01-10 00:00 | ACETAMINOPHEN | [facility] | + + + + | 2022-02-15 00:00 | ACETAMINOPHEN | [facility] | + + + + | 2022-06-10 00:00 | ACETAMINOPHEN | [facility] | + + + + | 2022-01-10 00:00 | CALCIUM ACETATE | [facility] | + + + + | 2022-02-15 00:00 | CALCIUM ACETATE | [facility] | + + + + | 2022-06-10 00:00 | CALCIUM ACETATE | [facility] | + + + + | 2022-01-10 00:00 | OMEPRAZOLE MAGNESIUM | [facility] | + + + + | 2022-02-15 00:00 | OMEPRAZOLE MAGNESIUM | [facility] | + + + + | 2022-06-10 00:00 | OMEPRAZOLE MAGNESIUM | [facility] | + + + + | 2022-01-10 00:00 | CIPROFLOXACIN HCL/DEXAMETH | [facility] | | | | | + + + + | 2022-02-15 00:00 | CIPROFLOXACIN HCL/DEXAMETH | [facility] | | | | | + + + + | 2022-06-10 00:00 | CIPROFLOXACIN HCL/DEXAMETH | [facility] | | | | | + + + + | 2021-11-27 00:00 | Drug or medicament | [facility] | | | (substance) | Department | + + + + | 2022-01-10 00:00 | LANTHANUM CARBONATE | [facility] | + + + + | 2022-02-15 00:00 | LANTHANUM CARBONATE | [facility] | + + + + | 2022-06-10 00:00 | LANTHANUM CARBONATE | [facility] | + + + + | 2022-01-10 00:00 | ALBUTEROL SULFATE | [facility] | + + + + | 2022-02-15 00:00 | ALBUTEROL SULFATE | [facility] | + + + + | 2022-06-10 00:00 | ALBUTEROL SULFATE | [facility] | + + + + | 2022-01-10 00:00 | CARVEDILOL | [facility] | + + + + | 2022-02-15 00:00 | CARVEDILOL | [facility] | + + + + | 2022-06-10 00:00 | CARVEDILOL | [facility] | + + + + | 2022-01-10 00:00 | CARVEDILOL | [facility] | + + + + | 2022-02-15 00:00 | CARVEDILOL | [facility] | + + + + | 2022-06-10 00:00 | CARVEDILOL | [facility] | + + + + | 2022-01-10 00:00 | SEVELAMER CARBONATE | [facility] | + + + + | 2022-02-15 00:00 | SEVELAMER CARBONATE | [facility] | + + + + | 2022-06-10 00:00 | SEVELAMER CARBONATE | [facility] | + + + + | 2013-10-15 00:00 | AZITHROMYCIN | [facility] | + + + + | 2013-10-15 00:00 | AZITHROMYCIN | [facility] | + + + + | 2018-01-23 00:00 | METHYLPREDNISOLONE | [facility] | + + + + | 2018-01-23 00:00 | METHYLPREDNISOLONE | [facility] | + + + + | 2022-01-10 00:00 | CHOLECALCIFEROL (VITAMIN | [facility] | | | D3) | | + + + + | 2022-02-15 00:00 | CHOLECALCIFEROL (VITAMIN | [facility] | | | D3) | | + + + + | 2022-06-10 00:00 | CHOLECALCIFEROL (VITAMIN | [facility] | | | D3) | | + + + + | 2016-08-11 00:00 | methylPREDNISolone | [facility] | + + + + | 2016-08-11 00:00 | methylPREDNISolone | [facility] | + + + + | 2021-10-06 00:00 | INSULIN | [facility] | | | GLARJOSE,HUM.REC.ANLOG | | + + + + | 2021-10-06 00:00 | INSULIN | [facility] | | | GLARGINE,HUM.REC.ANLOG | | + + + + | 2022-01-10 00:00 | DICLOFENAC SODIUM | [facility] | + + + + | 2022-02-15 00:00 | DICLOFENAC SODIUM | [facility] | + + + + | 2022-06-10 00:00 | DICLOFENAC SODIUM | [facility] | + + + + | 2022-01-10 00:00 | WARFARIN SODIUM | [facility] | + + + + | 2022-02-15 00:00 | WARFARIN SODIUM | [facility] | + + + + | 2022-06-10 00:00 | WARFARIN SODIUM | [facility] | + + + + | 2022-01-10 00:00 | WARFARIN SODIUM | [facility] | + + + + | 2022-02-15 00:00 | WARFARIN SODIUM | [facility] | + + + + | 2022-06-10 00:00 | WARFARIN SODIUM | [facility] | + + + + | 2022-01-10 00:00 | WARFARIN SODIUM | [facility] | + + + + | 2022-02-15 00:00 | WARFARIN SODIUM | [facility] | + + + + | 2022-06-10 00:00 | WARFARIN SODIUM | [facility] | + + + + | 2022-01-10 00:00 | WARFARIN SODIUM | [facility] | + + + + | 2022-02-15 00:00 | WARFARIN SODIUM | [facility] | + + + + | 2022-06-10 00:00 | WARFARIN SODIUM | [facility] | + + + + | 2022-01-10 00:00 | HYDROCODONE/APAP | [facility] | | | (10-325MG) | | + + + + | 2022-02-15 00:00 | HYDROCODONE/APAP | [facility] | | | (10-325MG) | | + + + + | 2022-06-10 00:00 | HYDROCODONE/APAP | [facility] | | | (10-325MG) | | + + + + | 2022-01-10 00:00 | HYDROCODONE | [facility] | | | BIT/ACETAMINOPHEN | | + + + + | 2022-02-15 00:00 | HYDROCODONE | [facility] | | | BIT/ACETAMINOPHEN | | + + + + | 2022-06-10 00:00 | HYDROCODONE | [facility] | | | BIT/ACETAMINOPHEN | | + + + + | 2015-11-19 00:00 | HYDROCODONE | [facility] | | | BIT/ACETAMINOPHEN | | + + + + | 2015-11-19 00:00 | HYDROCODONE | [facility] | | | BIT/ACETAMINOPHEN | | + + + + | 2016-01-18 00:00 | HYDROCODONE | [facility] | | | BIT/ACETAMINOPHEN | | + + + + | 2016-01-18 00:00 | HYDROCODONE | [facility] | | | BIT/ACETAMINOPHEN | | + + + + | 2018-02-23 00:00 | HYDROCODONE | [facility] | | | BIT/ACETAMINOPHEN | | + + + + | 2018-02-23 00:00 | HYDROCODONE | [facility] | | | BIT/ACETAMINOPHEN | | + + + + | 2021-08-07 00:00 | HYDROCODONE | [facility] | | | BIT/ACETAMINOPHEN | | + + + + | 2021-08-07 00:00 | HYDROCODONE | [facility] | | | BIT/ACETAMINOPHEN | | + + + + | 2022-01-10 00:00 | Cholecalciferol (Vitamin | [facility] | | | D3) | | + + + + | 2022-02-15 00:00 | Cholecalciferol (Vitamin | [facility] | | | D3) | | + + + + | 2022-06-10 00:00 | Cholecalciferol (Vitamin | [facility] | | | D3) | | + + + + | 2022-01-10 00:00 | ALBUTEROL SULFATE | [facility] | + + + + | 2022-02-15 00:00 | ALBUTEROL SULFATE | [facility] | + + + + | 2022-06-10 00:00 | ALBUTEROL SULFATE | [facility] | + + + + | 2022-01-10 00:00 | BRIMONIDINE TARTRATE | [facility] | + + + + | 2022-02-15 00:00 | BRIMONIDINE TARTRATE | [facility] | + + + + | 2022-06-10 00:00 | BRIMONIDINE TARTRATE | [facility] | + + + + | 2022-06-10 00:00 | LEVOTHYROXINE SODIUM | [facility] | + + + + | 2022-01-10 00:00 | LEVOTHYROXINE SODIUM | [facility] | + + + + | 2022-02-15 00:00 | LEVOTHYROXINE SODIUM | [facility] | + + + + | 2022-06-10 00:00 | LEVOTHYROXINE SODIUM | [facility] | + + + + | 2022-01-10 00:00 | LEVOTHYROXINE SODIUM | [facility] | + + + + | 2022-02-15 00:00 | LEVOTHYROXINE SODIUM | [facility] | + + + + | 2015-04-28 00:00 | DICYCLOMINE HCL | [facility] | + + + + | 2015-04-28 00:00 | DICYCLOMINE HCL | [facility] | + + + + | 2015-04-11 00:00 | GUAIFENESIN/CODEINE | [facility] | | | PHOSPHATE | | + + + + | 2015-04-11 00:00 | GUAIFENESIN/CODEINE | [facility] | | | PHOSPHATE | | + + + + Problems + + + + | date | description | facility | + + + + | 2014-03-08 00:00 | Asthma with acute | [facility] | | | exacerbation | | + + + + | 2014-03-08 00:00 | Asthma with acute | [facility] | | | exacerbation | | + + + + | 2014-03-15 00:00 | Sepsis | [facility] | + + + + | 2014-03-15 00:00 | Sepsis | [facility] | + + + + | 2014-03-15 00:00 | Diabetes mellitus | [facility] | + + + + | 2014-03-15 00:00 | Diabetes mellitus | [facility] | + + + + | 2014-03-15 00:00 | Coronary artery disease | [facility] | + + + + | 2014-03-15 00:00 | Coronary artery disease | [facility] | + + + + | 2014-03-15 00:00 | Pneumonia | [facility] | + + + + | 2014-03-15 00:00 | Pneumonia | [facility] | + + + + | 2014-03-15 00:00 | End-stage renal disease | [facility] | + + + + | 2014-03-15 00:00 | End-stage renal disease | [facility] | + + + + | 2014-05-14 00:00 | Bronchitis | [facility] | + + + + | 2014-05-14 00:00 | Bronchitis | [facility] | + + + + | 2014-05-14 00:00 | Renal failure | [facility] | + + + + | 2014-05-14 00:00 | Renal failure | [facility] | + + + + | 2014-05-14 00:00 | Dyspnea | [facility] | + + + + | 2014-05-14 00:00 | Dyspnea | [facility] | + + + + | 2014-08-25 00:00 | Pain of right forearm | [facility] | + + + + | 2014-08-25 00:00 | Pain of right forearm | [facility] | + + + + | 2014-09-14 00:00 | Acute pharyngitis | [facility] | + + + + | 2014-09-14 00:00 | Acute pharyngitis | [facility] | + + + + | 2014-11-23 00:00 | Patient left without being | [facility] | | | seen | | + + + + | 2014-11-23 00:00 | Patient left without being | [facility] | | | seen | | + + + + | 2014-12-07 00:00 | Reactive airway disease | [facility] | | | with acute exacerbation | | + + + + | 2014-12-07 00:00 | Reactive airway disease | [facility] | | | with acute exacerbation | | + + + + | 2015-02-20 00:00 | Compression fracture of | [facility] | | | cervical spine | | + + + + | 2015-02-20 00:00 | Compression fracture of | [facility] | | | cervical spine | | + + + + | 2015-04-11 00:00 | Asthma in adult | [facility] | + + + + | 2015-04-11 00:00 | Asthma in adult | [facility] | + + + + | 2015-04-28 00:00 | Chronic renal failure | [facility] | + + + + | 2015-04-28 00:00 | Chronic renal failure | [facility] | + + + + | 2015-04-28 00:00 | Abdominal pain | [facility] | + + + + | 2015-04-28 00:00 | Abdominal pain | [facility] | + + + + | 2015-07-19 00:00 | Acute chest wall pain | [facility] | + + + + | 2015-07-19 00:00 | Acute chest wall pain | [facility] | + + + + | 2015-10-05 00:00 | Acute asthma exacerbation | [facility] | + + + + | 2015-10-05 00:00 | Acute asthma exacerbation | [facility] | + + + + | 2015-11-19 00:00 | Acute otitis externa of | [facility] | | | left ear | | + + + + | 2015-11-19 00:00 | Acute otitis externa of | [facility] | | | left ear | | + + + + | 2016-01-18 00:00 | Contusion of right hand | [facility] | + + + + | 2016-01-18 00:00 | Contusion of right hand | [facility] | + + + + | 2016-02-01 00:00 | Exacerbation of asthma | [facility] | + + + + | 2016-02-01 00:00 | Exacerbation of asthma | [facility] | + + + + | 2016-04-28 00:00 | Respiratory failure | [facility] | | | requiring intubation | | + + + + | 2016-04-28 00:00 | Respiratory failure | [facility] | | | requiring intubation | | + + + + | 2016-07-08 00:00 | Acute bacterial | [facility] | | | conjunctivitis of both eyes | | | | | | + + + + | 2016-07-08 00:00 | Acute bacterial | [facility] | | | conjunctivitis of both eyes | | | | | | + + + + | 2016-07-08 00:00 | Viral labyrinthitis | [facility] | + + + + | 2016-07-08 00:00 | Viral labyrinthitis | [facility] | + + + + | 2016-08-09 00:00 | Swelling of right hand | [facility] | + + + + | 2016-08-09 00:00 | Swelling of right hand | [facility] | + + + + | 2016-08-11 00:00 | Contact dermatitis | [facility] | + + + + | 2016-08-11 00:00 | Contact dermatitis | [facility] | + + + + | 2016-08-18 00:00 | Chronic pruritic rash in | [facility] | | | adult | | + + + + | 2016-08-18 00:00 | Chronic pruritic rash in | [facility] | | | adult | | + + + + | 2016-09-07 00:00 | Acute gastroenteritis | [facility] | + + + + | 2016-09-07 00:00 | Acute gastroenteritis | [facility] | + + + + | 2016-09-17 00:00 | Constipation | [facility] | + + + + | 2016-09-17 00:00 | Constipation | [facility] | + + + + | 2016-10-01 00:00 | Chronic kidney disease | [facility] | + + + + | 2016-10-01 00:00 | Chronic kidney disease | [facility] | + + + + | 2016-10-01 00:00 | Chest pain | [facility] | + + + + | 2016-10-01 00:00 | Chest pain | [facility] | + + + + | 2016-10-01 00:00 | Elevated troponin I level | [facility] | + + + + | 2016-10-01 00:00 | Elevated troponin I level | [facility] | + + + + | 2016-10-07 00:00 | Hyperkalemia | [facility] | + + + + | 2016-10-07 00:00 | Hyperkalemia | [facility] | + + + + | 2016-10-07 00:00 | Chest pain | [facility] | + + + + | 2016-10-07 00:00 | Chest pain | [facility] | + + + + | 2016-12-01 00:00 | Abrasion of right cornea | [facility] | + + + + | 2016-12-01 00:00 | Abrasion of right cornea | [facility] | + + + + | 2017-02-11 00:00 | Rash | [facility] | + + + + | 2017-02-11 00:00 | Rash | [facility] | + + + + | 2017-02-12 00:00 | End-stage renal disease on | [facility] | | | hemodialysis | | + + + + | 2017-02-12 00:00 | End-stage renal disease on | [facility] | | | hemodialysis | | + + + + | 2017-02-20 00:00 | Contusion of right | [facility] | | | shoulder | | + + + + | 2017-02-20 00:00 | Contusion of right | [facility] | | | shoulder | | + + + + | 2017-02-21 00:00 | 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 | | + + + + | 2017-02-21 00:00 | 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 | | + + + + | 2017-04-26 00:00 | Dental abscess | [facility] | + + + + | 2017-04-26 00:00 | Dental abscess | [facility] | + + + + | 2017-08-30 00:00 | Ulcer of right cornea | [facility] | + + + + | 2017-08-30 00:00 | Ulcer of right cornea | [facility] | + + + + | 2017-12-31 00:00 | Acute bronchospasm | [facility] | + + + + | 2017-12-31 00:00 | Acute bronchospasm | [facility] | + + + + | 2018-01-23 00:00 | Pruritus due to | [facility] | | | inflammation | | + + + + | 2018-01-23 00:00 | Pruritus due to | [facility] | | | inflammation | | + + + + | 2018-01-23 00:00 | Headache | [facility] | + + + + | 2018-01-23 00:00 | Headache | [facility] | + + + + | 2018-02-11 00:00 | Acute strain of neck | [facility] | | | muscle | | + + + + | 2018-02-11 00:00 | Acute strain of neck | [facility] | | | muscle | | + + + + | 2018-02-23 00:00 | Conjunctivitis | [facility] | + + + + | 2018-02-23 00:00 | Conjunctivitis | [facility] | + + + + | 2018-03-24 00:00 | Diarrhea | [facility] | + + + + | 2018-03-24 00:00 | Diarrhea | [facility] | + + + + | 2018-03-26 00:00 | Nonspecific chest pain | [facility] | + + + + | 2018-03-26 00:00 | Nonspecific chest pain | [facility] | + + + + | 2018-07-20 00:00 | Skin tear | [facility] | + + + + | 2018-07-20 00:00 | Skin tear | [facility] | + + + + | 2018-11-03 00:00 | Asthma with acute | [facility] | | | exacerbation in adult | | + + + + | 2018-11-03 00:00 | Asthma with acute | [facility] | | | exacerbation in [...] 2020-04-09 00:00 | Contusion of upper | [facility] | | | extremity | | + + + + | 2020-04-09 00:00 | Contusion of upper | [facility] | | | extremity | | + + + + | 2021-05-15 00:00 | Complication of | [facility] | | | arteriovenous dialysis | | | | fistula | | + + + + | 2021-05-15 00:00 | Complication of | [facility] | | | arteriovenous dialysis [...] 00:00 | Pain of right upper | [facility] | | | extremity | | + + + + | 2021-08-07 00:00 | Pain of right upper | [facility] | | | extremity | | + + + + | 2021-08-11 00:00 | Acute kidney injury | [facility] | + + + + | 2021-08-11 00:00 | Acute kidney injury | [facility] | + + + + | 2021-08-11 00:00 | Left lower quadrant | [facility] | | | abdominal pain | | + + + + | 2021-08-11 00:00 | Left lower quadrant | [facility] | | | abdominal pain | | + + + + | 2021-08-11 00:00 | Vomiting | [facility] | + + + + | 2021-08-11 00:00 | Vomiting | [facility] | + + + + | 2021-10-04 00:00 | Diabetic ketoacidosis | [facility] | + + + + | 2021-10-04 00:00 | Diabetic ketoacidosis | [facility] | + + + + | 2022-01-10 00:00 | Conjunctivitis of right | [facility] | | | eye | | + + + + | 2022-01-10 00:00 | Conjunctivitis of right | [facility] | | | eye | | + + + + | 2022-02-15 00:00 | Infection due to severe | [facility] | | | acute respiratory syndrome | | | | coronavirus 2 (SARS-CoV-2) | | + + + + | 2022-06-07 00:00 | Influenza due to influenza | [facility] | | | virus, type A, human | | + + + + | 2022-06-07 00:00 | Acute renal failure | [facility] | + + + + [...] DISEASE OF | [facility] | | | ANGOON CORONARY ARTERY W/O | | + + [...] [facility] | | | ABN REACT/COMPL, W/O AR | | + + + + | 2022-06-07 20:10 | LONG-TERM (CURRENT) USE OF | [facility] | | | INSULIN | | + + + + | 2022-06-07 20:10 | 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
[~2023-02-17 06:21] MED LIST changes: +BASAGLAR K100 UNIT/1 SUB-Q; +LEVOTHYROXINE100 MCG PO; +PAXLOVID 300-11 EACH PO
--- OUTSIDE RECORDS SUMMARY | 2023-02-17 06:29 | XMS ---
PreManage Notification: CAROL STANTON Security Admissions Gate Attendant Events No recent Security Events currently on file CRITERIA MET - Group Notification CARE PROVIDERS KELLEYANTONYEllie [facility] Case Management 05/30/2021-[facility] PHONE: [phone] [facility] 05/22/2019-[facility] PHONE: [phone] ROSA LOFTON [facility] 01/24/2018-Current PHONE: [phone] -Al DMD Dentist: C Software Engineer Current PHONE: [phone] Reinaldo has no Care Guidelines for this patient. Care History Medical/Surgical 05/30/2021 [facility] - PATIENT IS [facility] ELIGIBLE, \T\middot;\T\nbsp; PLEASE REFER PATIENT TO [facility] FOR NON EMERGENT MEDICAL NEEDS. \T\middot;\T\nbsp; [facility] CAN SEE PATIENTS SAME DAY FOR APTS IF PATIENT CALLS FIRST THING IN THE MORNING. 02/13/2018 [facility] - PATIENT IS FOLLOWING VERY CLOSELY WITH [facility] GRADE SCHOOL TEACHER HARDIK WATSON. - PLEASE CALL SHIRLEY AT [phone] IF PATIENT IS SEEN IN THE ED. - PATIENT HAS A LONG EXTENSIVE HX WITH METHAMPHETAMINE USAGE. - PHYSICIAN DISCRETION- TOX SCREEN BEFORE TREATMENT. Care Recommendation: - USE EXTREME CAUTION IN GIVING NARCOTICS TO THIS PATIENT. - Avoid Discharge Narcotic prescriptions if at all possible. Please use clinical judgement. 02/04/2018 [facility] - PATIENT IS CURRENTLY ON [...] clinical judgement. E.D. VISIT COUNT (12 MO.) 2 [facility]. TOTAL 2 NOTE: Visits indicate total known visits. ED/UCC VISIT TRACKING (12 MO.) 02/17/2023 06:22 [facility] TYPE: Emergency COMPLAINT: - BLOOD SUGAR PROBLEM 06/07/2022 10:00 [facility] [place] TYPE: Emergency COMPLAINT: - COLD SYMPTOMS INPATIENT VISIT TRACKING (12 MO.) 06/07/2022 20:[address] [facility] [place] TYPE: Medical Surgical COMPLAINT: - TIFFANIE DIAGNOSES: - Acute kidney failure, unspecified - Allergy status to other drugs, medicaments and biological substances - Allergy status to penicillin - Atherosclerotic heart disease of [place] coronary artery without angina pectoris - Chronic kidney disease, stage 3b - Contact with and (suspected) exposure to COVID-19 - Dependence on renal dialysis - Gastro-esophageal reflux disease without esophagitis - Gout, unspecified - Hypertensive chronic kidney disease with stage 1 through stage 4 chronic kidney disease, or unspecified chronic kidney disease - Hypokalemia - Hypothyroidism, unspecified - Influenza due to other identified influenza virus with gastrointestinal manifestations - Latex allergy status - group home (current) use of insulin - Other acidosis - Other complication of kidney transplant - Other detention (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 - Other nonmedicinal substance allergy status - Other specified postprocedural states - Personal history of nicotine dependence - Personal history of other venous thrombosis and embolism - Surgical operation with transplant of whole organ as the cause of abnormal reaction of the patient, or of later complication, without mention of misadventure at the time of the procedure - Type 2 diabetes mellitus with diabetic chronic kidney disease - Unspecified asthma, uncomplicated [email or web address]
[2023-02-17 06:52] LABS: BASOPHILS 0.6 % (0-2); EOSINOPHILS 5.7 % (0-6); HEMATOCRIT 32.9 % (35.0-50.0); HEMOGLOBIN 10.8 g/dL (12.0-18.0); LYMPHOCYTES 17.3 % (24-44); MCH 28.6 (27-36); MCHC 32.9 g/dl (30-36); MCV 86.9 fl (81-99); MONOCYTES 11.6 % (0-12); NEUTROPHILS 64.8 % (39-80); PLATELET COUNT 169 K/uL (140-440); RBC 3.79 M/ul (4.3-5.7); RDW 14.8 (10.5-15.0)
[2023-02-17 07:00] LABS: ALBUMIN 3.9 g/dL (3.4-5.0); ALBUMIN/GLOBULIN RATIO 1.3 (1.1-2.4); ANION GAP 14.7 (7-21); BUN/CREATININE RATIO 9.14 (6.0-28.6); CREATININE, SERUM 1.75 mg/dL (0.70-1.30); MAGNESIUM 1.5 mg/dL (1.8-2.4); POTASSIUM 3.7 mmol/L (3.5-5.1); PROTEIN, TOTAL 6.9 g/dL (6.4-8.2)
[2023-02-17 07:04] LABS: CALCIUM 9.1 mg/dL (8.5-10.1)
[2023-02-17 09:06] VITALS: BP 125/70
== END 2023-02-17 09:07 | disposition home or self-care (01) ==
LOC: ED 06:21
PROVIDERS: Family Medicine
DX: E11.22 Type 2 diabetes mellitus with diabetic chronic kidney disease (principal); I12.0 Hypertensive chronic kidney disease with stage 5 chronic kidney disease or end stage renal disease; N18.6 End stage renal disease; Z99.2 Dependence on renal dialysis; I25.10 Atherosclerotic heart disease of native coronary artery without angina pectoris; E03.9 Hypothyroidism, unspecified; K21.9 Gastro-esophageal reflux disease without esophagitis; Z88.8 Allergy status to other drugs, medicaments and biological substances; Z88.0 Allergy status to penicillin; Z88.1 Allergy status to other antibiotic agents; Z91.040 Latex allergy status; Z91.048 Other nonmedicinal substance allergy status; Z79.01 Long term (current) use of anticoagulants; Z79.4 Long term (current) use of insulin; Z79.899 Other long term (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
CPT/HCPCS: 36415; 80053; 83735; 85025; J3475